=== PATIENT | female | born 1945 | race Caucasian/White ===

== ENCOUNTER 2023-02-08 06:18 | Observation (INO) | payer MEDICARE, OTHER, SELFPAY ==
[2023-02-08] VITALS (20 sets, daily range): BP systolic 126–170; BP diastolic 69–98; PULSE 71–115; RESP 14–18; TEMP 36.3–36.6; O2SAT 91–95; BMI 20.3; BMI 20.6
--- NOTE | 2023-02-08 06:34 | ECG_ITS ---
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
--- NOTE | 2023-02-08 06:34 | XR_ITS ---
The [address] [address] Patient Name: NANCY KHAN MRN: [id number] date: 1945 Sex: F Assigned Patient Location: ER Current Patient Location: ER Accession/Order Number: [id number] Exam Date: 02/08/2023 07:22 Report Date: 02/08/2023 07:35 At the request of: VIRGILIO BARRERA Procedure: XR chest 1V PROCEDURE: XR chest 1V DATE: 02/08/2023 6:22 AM CDT COMPARISONS: 05/10/2022 CLINICAL INDICATION: 78 years Female cp FINDINGS: The cardiomediastinal silhouette and pulmonary vasculature are within normal limits. The lungs appear hyperaerated. There is slight scattered increased interstitial markings likely representing chronic lung changes. There is no evidence of pleural effusion or pneumothorax. XR/XR chest 1V IMPRESSION: Findings most consistent with chronic lung changes, stable from previous exam. Electronically authenticated by: GM HOWARD Date: 02/08/2023 07:35
[2023-02-08 07:39] LABS: Basophils Absolute Auto 0.1 10^3/uL (0.0-0.1); Basophils Percent Auto 1.3 % (0.2-2.0); Eosinophils Absolute Auto 0.5 10^3/uL (0.0-0.7); Eosinophils Percent Auto 6.4 % (0.9-7.0); Hematocrit 42.9 % (36.0-48.0); Hemoglobin 14.3 g/dL (12.0-16.0); Immature Granulocytes Abs Auto 0.01 10^3/uL (0.00-0.03); Immature Granulocytes Pct Auto 0.1 % (0.0-0.5); Lymphocytes Absolute Auto 4.6 10^3/uL (1.2-3.8); Lymphocytes Percent Auto 55.8 % (20.5-60.0); Mean Corpuscular HGB Conc 33.3 g/dL (29.9-35.2); Mean Corpuscular Hemoglobin 31.1 pg (26.7-34.0); Mean Corpuscular Volume 93.3 fL (81.0-99.0); Mean Platelet Volume 11.2 fL (9.5-13.5); Monocytes Absolute Auto 1.1 10^3/uL (0.3-0.8); Monocytes Percent Auto 13.5 % (1.7-12.0); Neutrophils Absolute Auto 1.9 10^3/uL (1.4-6.5); Neutrophils Percent Auto 22.9 % (43.0-75.0); Platelet Count 355 10^3/uL (150-450); Red Cell Distribution Width 14.3 % (11.0-15.0); White Blood Count 8.2 10^3/uL (4.0-11.0)
[2023-02-08 07:59] LABS: Alanine Aminotransferase 25 U/L (14-59); Albumin Globulin Ratio 1.2; Albumin Level 3.8 g/dL (3.4-5.0); Alkaline Phosphatase 105 U/L (46-116); Anion Gap 12.8; Aspartate Amino Transferase 23 U/L (15-37); BUN Creatinine Ratio 23.3; Bilirubin Total 0.4 mg/dL (0.2-1.0); Calcium 10.4 mg/dL (8.5-10.1); Carbon Dioxide 28.9 mmol/L (21.0-32.0); Chloride 102 mmol/L (98-107); Estimated GFR (African America >60 (>=60); Estimated GFR (Non-African Ame >60 (>=60); Globulin 3.2 g/dL; Glucose 81 mg/dL (74-106); Potassium 3.7 mmol/L (3.5-5.1); Sodium 140 mmol/L (136-145); Troponin I High Sensitivity 21.7 pg/mL (4.0-51.3)
[2023-02-08 08:07] LABS: Partial Thromboplastin Time 29.9 sec (22.3-36.2); Prothrombin Time 9.8 sec (9.0-11.6)
--- NOTE | 2023-02-08 08:08 | ECG_ITS ---
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
[2023-02-08 08:28] LABS: INR <0.93
[2023-02-08 08:30] LABS: D Dimer 0.84 mg/L FEU (<=0.59)
--- NOTE | 2023-02-08 08:39 | CT_ITS ---
The [address] [address] Patient Name: NANCY KHAN MRN: [id number] date: 1945 Sex: F Assigned Patient Location: ER Current Patient Location: ER Accession/Order Number: [id number] Exam Date: 02/08/2023 08:52 Report Date: 02/08/2023 09:26 At the request of: SINAN EDWARDS Procedure: CT angio chest EXAM: CT angio chest HISTORY: PE protocol COMPARISON: 05/05/2022 TECHNIQUE: Axial CT images were obtained of the chest with intravenous contrast in the pulmonary arterial phase. Multiplanar, MIP and 3D reconstructions were performed. CHEST FINDINGS: Lungs/Pleura: Severe emphysematous disease is present. There is a stable focus of apical scarring at the right lung apex. Mild bibasilar atelectasis or scarring is present. No pleural effusion or pneumothorax. Pulmonary Arteries: No evidence of pulmonary embolus. Cardiovascular: The heart is normal in size. Moderate scattered coronary artery calcifications are present. There is severe scattered atherosclerotic disease throughout the thoracic aorta. Multifocal ectasia is present with dilation of the distal thoracic aorta measuring 3.0 cm in diameter. Pericardium: No effusion. Mediastinum: Unremarkable. Lymph Nodes: No lymph node enlargement by CT size criteria. Bones: No acute osseous abnormality. Soft tissues: Unremarkable. Upper Abdomen: Multiple cysts are present in the upper pole left kidney. CT/CT angio chest IMPRESSION: 1. No pulmonary embolus identified. 2. Severe emphysematous disease. 3. Stable right apical scarring and bibasilar atelectasis or scarring. Electronically authenticated by: JUVENTINO PRESCOTT Date: 02/08/2023 09:26
[2023-02-08 09:12] LABS: Troponin I High Sensitivity 20.1 pg/mL (4.0-51.3)
--- NOTE | 2023-02-08 10:27 | ED_ITS ---
HPI - Chest Pain General Chief Complaint: Chest Pain Stated Complaint: CHEST PAIN Time Seen by Provider: 02/08/23 06:34 Source: patient and family Mode of arrival: walk-in History of Present Illness HPI narrative: Is a 78-year-old female presenting to us with a chest pressure associated with nausea and tachycardia and according to her she felt her heart racing, the patient woke up and she did go to the bathroom when she came back to lay down and started having heart racing with the sense of nausea and discomfort in her chest and sense of chest pressure The patient mentioned that the symptoms continued there for few minutes by the t dorys she arrived to the ER if she was feeling better and she had no pain on arrival, the patient was scared when her heart was racing she denies any other complaints or having any acute issue during the night Related Data Home Medications Medication Instructions Recorded Confirmed alprazolam 1 mg tablet 1 mg PO BEDTIME 02/08/23 02/08/23 amlodipine 5 mg tablet 5 mg PO DAILY 02/08/23 02/08/23 carbidopa 25 mg-levodopa 100 mg 1 tab PO QID 02/08/23 02/08/23 tablet lisinopril 20 1 tab PO DAILY 02/08/23 02/08/23 mg-hydrochlorothiazide 25 mg tablet potassium chloride 20 mEq 20 meq PO BID 02/08/23 02/08/23 tablet,extended release(part/cryst) (Klor-Con M) pravastatin 20 mg tablet 20 mg PO DAILY 02/08/23 02/08/23 trazodone 50 mg tablet 50 mg PO BEDTIME PRN sleep 02/08/23 02/08/23 Allergies Allergy/AdvReac Type Severity Reaction Status Date / Time Sulfa (Sulfonamide Allergy Unknown Verified 02/08/23 06:34 Antibiotics) Review of Systems ROS Status of ROS 10 or more systems reviewed and unremarkable except as noted in history and below [facility] Medical History (Updated 02/08/23 @ 11:42 by Nancy Scott) Surgical History (Updated 02/08/23 @ 11:40 by Nancy Scott) Family History (Updated 02/08/23 @ 11:41 by Nancy Scott) Brother Family history of stroke Family history of hypertension Mother Family history of stroke Family history of hypertension Father Family history of cancer Social History (Updated 02/08/23 @ 11:43 by Nancy Scott) Within the past year, how often did you have a drink containing alcohol: never Within the past year, how many standard drinks containing alcohol did you have on a typical day: 1 or 2 Within the past year, how often did you have six or more drinks on one occasion: never Total score: 0 Score interpretation: A score less than 3 is consistent with normal alcohol consumption. Smoking status: Former smoker Non-prescribed substance use: denies use Previous occupational history: retired Highest level of school completed/degree received: high school graduate Are you now , , , , never or living with a partner: In a typical week, how many times do you talk on the telephone with family, friends, or neighbors: 3 or more times per week How often do you get together with friends or relatives: 3 or more times per week How often do you attend yarsani or judaism services: 4 or more times per year Do you belong to any clubs or organizations such as yarsani groups unions, fraternal or athletic groups, or school groups: no Total score: 2 Score interpretation: A score of greater than or equal to 2 indicates the lowest level of social isolation. Little interest or pleasure in doing things: not at all Feeling down, depressed, or hopeless: not at all Feel stressed/tense/nervous/anxious/difficulty sleeping: not at all Gender Identity: female Exam Narrative Exam Narrative: Nurses notes and vital signs reviewed and patient is not hypoxic. General: Well-appearing and in no apparent distress. Skin: Warm, dry, no pallor noted. No rash. Head: Normocephalic, atraumatic. Neck: Supple, non-tender. Eye: Pupils are equal, round and EOMI. No scleral icterus. Ears, Nose, Mouth, and Throat: TM are clear, no nasal mucosal hypertrophy. Oral mucosa is moist, no posterior oropharynx erythema, uvula is mid-line Cardiovascular: Regular Rate and Rhythm without murmur, gallop or rub. Respiratory: No accessory muscle use or respiratory distress. Lungs are clear to auscultation, no wheezing, rales or rhonchi Chest Wall: no tenderness Back: No midline thoracic or lumbar vertebral tenderness. No CVA tenderness Musculoskeletal: normal ROM, no calf or popliteal tenderness, no lower extremity edema/swelling GI: Abdomen is soft, non-distended. Normal bowel sounds. No masses appreciated. No tenderness to palpation. No rebound, guarding, or rigidity noted. Neurological: A&O x4. No cranial nerve dysfunction observed. No truncal ataxia. Moves all extremities. Sensation intact. Psychiatric: Cooperative and interactive. Normal mood and affect. Constitutional Vital Signs, click to edit/add: Last Vital Signs Temp 97.5 F L 02/08/23 15:50 Pulse 93 H 02/08/23 16:01 Resp 18 02/08/23 14:00 BP 144/79 H 02/08/23 15:50 Pulse Ox 94 L 02/08/23 17:01 O2 Del Method Room Air 02/08/23 17:01 Course Vital Signs Vital signs: Vital Signs Temperature 98 F 02/08/23 06:25 Pulse Rate 89 02/08/23 06:25 Respiratory Rate 16 02/08/23 06:25 Blood Pressure 170/98 H 02/08/23 06:25 Pulse Oximetry 93 L 02/08/23 06:25 Oxygen Delivery Method Room Air 02/08/23 06:25 Temperature 97.5 F L 02/08/23 15:50 Pulse Rate 93 H 02/08/23 16:01 Respiratory Rate 18 02/08/23 14:00 Blood Pressure 144/79 H 02/08/23 15:50 Pulse Oximetry 94 L 02/08/23 17:01 Oxygen Delivery Method Room Air 02/08/23 17:01 MDM - Chest Pain MDM Narrative Medical decision making narrative: The patient presenting to us with a chest pressure that presented early in the morning associated with the palpitation and sense of dizziness This feeling already resolved by the time she got to the ER and the patient EKG in the ER showed no acute significant pathology she also had a chest x-ray and a CBC and chemistry that were within normal the troponin was repeated twice and there was no trending up The patient also had elevated D-dimer her CAT scan of the chest showed no PE With the patient presentation and the fact that her blood pressure was elevated upon presentation and the fact that she recently had her metoprolol stopped according to the history and the dizziness associated with tachycardia and chest pressure that she had that I was not able to evaluate because she already had that resolved before arrival--- will be admitted for observation and I spoke with Dr. Leary he agreed with above-mentioned plan he will be admitting the patient Lab Data Labs: Lab Results 02/08/23 02/08/23 Range/Units 06:40 08:49 WBC 8.2 (4.0-11.0) 10^3/uL RBC 4.60 (4.20-5.40) 10^6/uL Hgb 14.3 (12.0-16.0) g/dL Hct 42.9 (36.0-48.0) % MCV 93.3 (81.0-99.0) fL MCH 31.1 (26.7-34.0) pg MCHC 33.3 (29.9-35.2) g/dL RDW 14.3 (11.0-15.0) % Plt Count 355 (150-450) 10^3/uL MPV 11.2 (9.5-13.5) fL Neut % (Auto) 22.9 L (43.0-75.0) % Lymph % (Auto) 55.8 (20.5-60.0) % [place] % (Auto) 13.5 H (1.7-12.0) % Eos % (Auto) 6.4 (0.9-7.0) % Baso % (Auto) 1.3 (0.2-2.0) % Neut # (Auto) 1.9 (1.4-6.5) 10^3/uL Lymph # (Auto) 4.6 H (1.2-3.8) 10^3/uL [place] # (Auto) 1.1 H (0.3-0.8) 10^3/uL Eos # (Auto) 0.5 (0.0-0.7) 10^3/uL Baso # (Auto) 0.1 (0.0-0.1) 10^3/uL Abs Immat Gran (auto) 0.01 (0.00-0.03) 10^3/uL Imm/Tot Granulo (auto) 0.1 (0.0-0.5) % PT 9.8 (9.0-11.6) sec INR <0.93 APTT 29.9 (22.3-36.2) sec D-Dimer 0.84 H* (<=0.59) mg/L FEU Sodium 140 (136-145) mmol/L Potassium 3.7 (3.5-5.1) mmol/L Chloride 102 (98-107) mmol/L Carbon Dioxide 28.9 (21.0-32.0) mmol/L Anion Gap 12.8 BUN 17.0 (7.0-18.0) mg/dL Creatinine 0.73 (0.55-1.02) mg/dL Est GFR ( Amer) >60 (>=60) Est GFR (Non-Af Amer) >60 (>=60) BUN/Creatinine Ratio 23.3 Glucose 81 (74-106) mg/dL Calcium 10.4 H (8.5-10.1) mg/dL Total Bilirubin 0.4 (0.2-1.0) mg/dL AST 23 (15-37) U/L ALT 25 (14-59) U/L Alkaline Phosphatase 105 (46-116) U/L Troponin I High Sens 21.7 20.1 (4.0-51.3) pg/mL Total Protein 7.0 (6.4-8.2) g/dL Albumin 3.8 (3.4-5.0) g/dL Globulin 3.2 g/dL Albumin/Globulin Ratio 1.2 Discharge Plan Discharge Chief Complaint: Chest Pain Clinical Impression: Heart palpitations, Chest pain Patient Disposition: Admitted as Observation Time of Disposition Decision: 10:51 Condition: Good Discharge Date/Time: 02/08/23 11:25
--- NOTE | 2023-02-08 12:12 | CA_ITS ---
Patient: NANCY KHAN Exam Date: 02/08/2023 : 1945 Gender:F Ordering : DR RODRICK SAMS . Admission #: [id number] Family : STEPHENIE PRECIADO Order #: [id number] CLICK HERE TO VIEW EXAM ECHOCARDIOGRAM REPORT PROCEDURE: CA ECHO DOPPLER COMPLETE INDICATIONS: Dyspnea, chest pain COMPARISON: None. DESCRIPTION: COMPLETE ECHOCARDIOGRAM Real-time transthoracic echocardiography with 2D, M-mode, spectral and color flow Doppler performed. QUALITY: Technical quality was good. LEFT VENTRICLE: Normal chamber size. Normal left ventricular wall thickness. Normal systolic function. LV EF: Normal left ventricular ejection fraction, (>55%). DIASTOLIC: Diastolic function is indeterminate. ATRIAL SEPTUM: LEFT ATRIUM: Moderately dilated. RIGHT ATRIUM: Normal chamber size. RIGHT VENTRICLE: Normal chamber size. Normal right ventricular systolic function. TRICUSPID VALVE: Normal mobility and thickness. No stenosis with trivial regurgitation. Doppler studies reveal mildly (35-45) elevated right sided pressures. RVSP 38 mmHg MITRAL VALVE: Normal mobility and thickness. No evidence of mitral valve stenosis. There is no mitral annular calcification. Trivial mitral regurgitation. AORTIC VALVE: Normal trileaflet appearance. No visible sclerosis. Normal leaflet mobility. No evidence of aortic valve stenosis. No aortic regurgitation. AORTIC ROOT: Normal diameter and appearance. PULMONIC VALVE: Normal thickness and mobility. No stenosis. No regurgitation. PERICARDIUM: No evidence of pericardial effusion. IVC: Collapses with inspirations. PLEURA: CONCLUSION: 1. Normal ventricular systolic function. LVEF is 55 to 60%. 2. No significant valvular dysfunction. 3. Mildly elevated right-sided pressures. Adult Echocardiography Procedure Report Left Ventricle LVEDD (3.7 - 5.6 cm): 4.71 cm LVESD (2.2 - 4.0 cm): 3.41 cm LVIVS thickness (0.6 - 1.2 cm): 0.85 cm LVPW thickness (0.5 - 1.0 cm): 0.74 cm e': 0.11 m/s E - e': 5.87 LVOT Max Gradient: 2.43 mm[Hg] LVOT Area (cm2): 0.78 m/s Peak Velocity (LVOT): 0.78 m/s LVOT Diameter 2.09 cm Left Atrium LA Volume Index (2D A2C): 26.86 ml/m2 Left Atrium Systolic Dimension: 2.38 cm Mitral Valve MV E to A Ratio: 0.90, 0.76 Mitral Valve A-Wave Peak Velocity: 0.76 m/s Mitral Valve E-Wave Peak Velocity: 0.63 m/s Right Ventricle Aorta AO Root Diam: 3.41 cm Aortic Valve AoV Area (Peak Noe): 1.81 cm2, 1.81 cm2 Peak Velocity(Antegrade Flow): 1.47 m/s Peak Gradient(Antegrade Flow): 8.60 mm[Hg] Tricuspid Valve Peak Velocity (Regurgitant Flow): 2.94 m/s, 2.97 m/s Pulmonic Valve Mean Gradient: 3.70 mm[Hg] Mean Velocity: 0.89 m/s Peak Velocity: 1.36 m/s, 0.77 m/s Peak Gradient: 7.40 mm[Hg], 2.36 mm[Hg] Right Atrium Right Atrium Systolic Pressure: 35.61 ml, 35.61 ml Dictated by: Brian Pulido M.D. on 02/08/2023 at 18:10 Approved by: Brian Pulido M.D. on 02/08/2023 at 18:13
[2023-02-08 13:07] LABS: Free T3 3.81 pg/mL (2.18-3.98); Magnesium 1.9 mg/dL (1.8-2.4); Thyroid Stimulating Hormone 0.974 uIU/mL (0.358-3.740); Troponin I High Sensitivity 20.7 pg/mL (4.0-51.3)
--- NOTE | 2023-02-08 14:05 | SWNOTE1 ---
SW met with pt and pt's daughter was in room as well. Pt lives at home with her daughter. Pt is independent at home and does not use any DME. Pt denies having any needs or concerns about discharge at this time. SW to follow as needed. SW reviewed [employer] form with pt and daughter. Pt voiced understanding, no questions. Pt signed form, original given to pt and copy placed in chart.
--- NOTE | 2023-02-08 17:21 | P.HP_ITS ---
H&P: HPI History of Present Illness Chief complaint: CHEST PAIN/PALPITATION Narrative: Presented to the emergency room with an episode of chest pain. Lasted for while at home. Uncertain the amount of time in the more than 30 minutes. [place] her heart was racing at that time as well. By the time she presented to the emergency room her chest pain had resolved. She did have a recent adjustment in her medications through cardiology. They stopped her metoprolol. She does feel little bit better off of the metoprolol but now she had this episode Review of Systems ROS Status of ROS 10 or more systems reviewed and unremarkable except as noted in history and below [facility] Medical History (Updated 02/08/23 @ 11:42 by Nancy Sctot) Surgical History (Updated 02/08/23 @ 11:40 by Nancy Scott) Family History (Updated 02/08/23 @ 11:41 by Nancy Scott) Brother Family history of stroke Family history of hypertension Mother Family history of stroke Family history of hypertension Father Family history of cancer Social History (Updated 02/08/23 @ 11:43 by Nancy Scott) Within the past year, how often did you have a drink containing alcohol: never Within the past year, how many standard drinks containing alcohol did you have on a typical day: 1 or 2 Within the past year, how often did you have six or more drinks on one occasion: never Total score: 0 Score interpretation: A score less than 3 is consistent with normal alcohol consumption. Smoking status: Former smoker Non-prescribed substance use: denies use Previous occupational history: retired Highest level of school completed/degree received: high school graduate Are you now , , , , never or living with a partner: In a typical week, how many times do you talk on the telephone with family, friends, or neighbors: 3 or more times per week How often do you get together with friends or relatives: 3 or more times per week How often do you attend evangelical or muslim services: 4 or more times per year Do you belong to any clubs or organizations such as evangelical groups unions, fraternal or athletic groups, or school groups: no Total score: 2 Score interpretation: A score of greater than or equal to 2 indicates the lowest level of social isolation. Little interest or pleasure in doing things: not at all Feeling down, depressed, or hopeless: not at all Feel stressed/tense/nervous/anxious/difficulty sleeping: not at all Gender Identity: female Meds Home Medications and Allergies Home Medications Medication Instructions Recorded Confirmed Type alprazolam 1 mg tablet 1 mg PO BEDTIME 02/08/23 02/08/23 History amlodipine 5 mg tablet 5 mg PO DAILY 02/08/23 02/08/23 History carbidopa 25 mg-levodopa 100 mg 1 tab PO QID 02/08/23 02/08/23 History tablet lisinopril 20 1 tab PO DAILY 02/08/23 02/08/23 History mg-hydrochlorothiazide 25 mg tablet potassium chloride 20 mEq 20 meq PO BID 02/08/23 02/08/23 History tablet,extended release(part/cryst) (Klor-Con M) pravastatin 20 mg tablet 20 mg PO DAILY 02/08/23 02/08/23 History trazodone 50 mg tablet 50 mg PO BEDTIME PRN sleep 02/08/23 02/08/23 History Allergies Allergy/AdvReac Type Severity Reaction Status Date / Time Sulfa (Sulfonamide Allergy Unknown Verified 02/08/23 06:34 Antibiotics) Exam Constitutional Vital Signs, click to edit/add: Last Vital Signs Temp 97.5 F L 02/08/23 15:50 Pulse 93 H 02/08/23 16:01 Resp 18 02/08/23 14:00 BP 144/79 H 02/08/23 15:50 Pulse Ox 94 L 02/08/23 17:01 O2 Del Method Room Air 02/08/23 17:01 Common normals: no apparent distress Exam limitations: altered mental status [facility] Common normals: normocephalic and head/scalp atraumatic Chest Common normals: inspection of chest normal and palpation of chest normal Respiratory Common normals: normal respiratory effort, no retractions and clear to auscultation bilaterally Auscultation: diminished lung sounds Cardio Common normals: regular rate, regular rhythm and no murmurs Results Labs Labs: Short CBC 02/08/23 Range/Units 06:40 WBC 8.2 (4.0-11.0) 10^3/uL Hgb 14.3 (12.0-16.0) g/dL Hct 42.9 (36.0-48.0) % Plt Count 355 (150-450) 10^3/uL BMP 02/08/23 06:40 Sodium 140 Potassium 3.7 Chloride 102 Carbon Dioxide 28.9 BUN 17.0 Creatinine 0.73 Glucose 81 Calcium 10.4 H Liver Function 02/08/23 Range/Units 06:40 Total Bilirubin 0.4 (0.2-1.0) mg/dL AST 23 (15-37) U/L ALT 25 (14-59) U/L Alkaline Phosphatase 105 (46-116) U/L Albumin 3.8 (3.4-5.0) g/dL Assessment and Plan Assessment and Plan (1) Heart palpitations: (2) Chest pain: (3) Hypertension: Plan Uncontrolled hypertension with chest pain significant for possible angina with her metoprolol recently being changed. The episode lasted less than 30 minutes possibly. Admitted for further evaluation. She also had palpitations at that time. She does feel better off of the metoprolol overall, not as tired. We will check echocardiogram, complete the cardiac markers. Reevaluate in a.m. COPD-but no acute exacerbation Parkinsons disease-symptoms are somewhat worse today but she did not take her medications today Uncontrolled hypertension-continue with home medications as blood pressure is better, consider adding back beta-ayo Place patient in observation-likely stable overnight and discharged home. That is much more likely than needing the extended stay
[2023-02-08] MEDS: CARBIDOPA/LEVODOPA 25 MG-100 MG TABLET 1 TAB PO (19:23)
[2023-02-08] MEDS: POTASSIUM CHLORIDE 10 MEQ ER TABLET 20 MEQ PO (21:38)
[2023-02-08] MEDS: ALPRAZOLAM 1 MG TABLET PO (21:38)
[2023-02-09 01:00] VITALS: PULSE 74
[2023-02-09 03:00] VITALS: PULSE 67
[2023-02-09 05:00] VITALS: PULSE 69
[2023-02-09 05:05] LABS: Basophils Absolute Auto 0.1 10^3/uL (0.0-0.1); Basophils Percent Auto 1.5 % (0.2-2.0); Eosinophils Absolute Auto 0.3 10^3/uL (0.0-0.7); Eosinophils Percent Auto 5.8 % (0.9-7.0); Hematocrit 40.7 % (36.0-48.0); Hemoglobin 13.5 g/dL (12.0-16.0); Immature Granulocytes Abs Auto 0.01 10^3/uL (0.00-0.03); Immature Granulocytes Pct Auto 0.2 % (0.0-0.5); Lymphocytes Absolute Auto 2.6 10^3/uL (1.2-3.8); Mean Corpuscular HGB Conc 33.2 g/dL (29.9-35.2); Mean Corpuscular Hemoglobin 31.1 pg (26.7-34.0); Mean Corpuscular Volume 93.8 fL (81.0-99.0); Mean Platelet Volume 11.2 fL (9.5-13.5); Monocytes Absolute Auto 0.9 10^3/uL (0.3-0.8); Neutrophils Absolute Auto 1.9 10^3/uL (1.4-6.5); Neutrophils Percent Auto 32.5 % (43.0-75.0); Platelet Count 314 10^3/uL (150-450); Red Blood Count 4.34 10^6/uL (4.20-5.40); Red Cell Distribution Width 14.6 % (11.0-15.0); White Blood Count 5.9 10^3/uL (4.0-11.0)
[2023-02-09] MEDS: CARBIDOPA/LEVODOPA 25 MG-100 MG TABLET 1 TAB PO (05:05)
[2023-02-09 05:51] LABS: Anion Gap 9.9; BUN Creatinine Ratio 21.8; Calcium 9.5 mg/dL (8.5-10.1); Carbon Dioxide 26.7 mmol/L (21.0-32.0); Chloride 109 mmol/L (98-107); Estimated GFR (African America >60 (>=60); Estimated GFR (Non-African Ame >60 (>=60); Glucose 81 mg/dL (74-106); Magnesium 2.1 mg/dL (1.8-2.4); Potassium 3.6 mmol/L (3.5-5.1); Sodium 142 mmol/L (136-145)
[2023-02-09 05:55] VITALS: BP 126/83; PULSE 62; RESP 18; TEMP 36.4; O2SAT 92
[2023-02-09 07:58] VITALS: PULSE 96
--- NOTE | 2023-02-09 08:06 | P.DS_ITS ---
DS: Providers Provider Date of admission: 02/08/23 11:20 Primary care physician: Kavon Leary MD DS: Diagnosis Discharge Diagnosis (1) Heart palpitations: (2) Chest pain: (3) Hypertension: Plan Uncontrolled hypertension with chest pain significant for possible angina with her metoprolol recently being changed. COPD Parkinsons disease- Uncontrolled hypertension DS: Summary Hospital Course Hospital Course: Patient with a history of angina and coronary artery disease presented to the emergency room with increasing chest pain. Patient arrived to the emergency room her chest pain had resolved. Cardiac markers were negative. Case was discussed with cardiology recommended observation. Echocardiogram was normal. Cardiac markers x3 were all negative. She has had no further symptoms since that time. At this point we will have her ambulate this morning. If she is stable and has no further chest pain her heart rate is much improved. We will discharge patient to home in improving condition. Medications see list. Follow-up with me in the office next week. Time Spent with Patient Time attestation: Total time spent providing and/or coordinating discharge services: Exam Constitutional Vital Signs, click to edit/add: Last Vital Signs Temp 97.6 F 02/09/23 05:55 Pulse 96 H 02/09/23 07:58 Resp 18 02/09/23 05:55 BP 126/83 02/09/23 05:55 Pulse Ox 92 L 02/09/23 05:55 O2 Del Method Room Air 02/09/23 05:55 Common normals: no apparent distress Exam limitations: altered mental status HENMT Common normals: normocephalic and head/scalp atraumatic Chest Common normals: inspection of chest normal and palpation of chest normal Respiratory Common normals: normal respiratory effort, no retractions and clear to auscultation bilaterally Auscultation: diminished lung sounds Cardio Common normals: regular rate, regular rhythm and no murmurs DS: Data Data Completed and Pending Labs on day of discharge: Labs from last 24 hours 02/09/23 02/08/23 02/08/23 04:15 12:32 08:49 WBC 5.9 RBC 4.34 Hgb 13.5 Hct 40.7 MCV 93.8 MCH 31.1 MCHC 33.2 RDW 14.6 Plt Count 314 MPV 11.2 Neut % (Auto) 32.5 L Lymph % (Auto) 44.0 [place] % (Auto) 16.0 H Eos % (Auto) 5.8 Baso % (Auto) 1.5 Neut # (Auto) 1.9 Lymph # (Auto) 2.6 [place] # (Auto) 0.9 H Eos # (Auto) 0.3 Baso # (Auto) 0.1 Abs Immat Gran (auto) 0.01 Imm/Tot Granulo (auto) 0.2 PT INR APTT D-Dimer Sodium 142 Potassium 3.6 Chloride 109 H Carbon Dioxide 26.7 Anion Gap 9.9 BUN 19.0 H Creatinine 0.87 Est GFR ( Amer) >60 Est GFR (Non-Af Amer) >60 BUN/Creatinine Ratio 21.8 Glucose 81 Calcium 9.5 Magnesium 2.1 1.9 Troponin I High Sens 20.7 20.1 NT-Pro-B Natriuret Pep 45.0 52.0 TSH 0.974 Thyroxine (T4) 6.60 Free T3 3.81 02/08/23 06:40 WBC RBC Hgb Hct MCV MCH MCHC RDW Plt Count MPV Neut % (Auto) Lymph % (Auto) [place] % (Auto) Eos % (Auto) Baso % (Auto) Neut # (Auto) Lymph # (Auto) [place] # (Auto) Eos # (Auto) Baso # (Auto) Abs Immat Gran (auto) Imm/Tot Granulo (auto) PT 9.8 INR <0.93 APTT 29.9 D-Dimer 0.84 H* Sodium Potassium Chloride Carbon Dioxide Anion Gap BUN Creatinine Est GFR ( Amer) Est GFR (Non-Af Amer) BUN/Creatinine Ratio Glucose Calcium Magnesium Troponin I High Sens NT-Pro-B Natriuret Pep TSH Thyroxine (T4) Free T3 Discharge Plan Discharge Disposition: Home, Self-Care Condition: Good Discharge Medications: Continued alprazolam 1 mg tablet 1.5 mg PO BEDTIME Rx Instructions: last filled 01/11/23 #45/30 days amlodipine 5 mg tablet 5 mg PO DAILY carbidopa-levodopa 25-100 mg tablet 1 tab PO QID Rx Instructions: 1 tab at 7am, 1 tab at 11am and 1 tab at 3pm per SIG on fill from 11/24/22 for 90 days lisinopril-hydrochlorothiazide 20-25 mg tablet 1 tab PO DAILY potassium chloride [Klor-Con M20] 20 mEq tablet,ER particles/crystals 20 meq PO BID pravastatin 20 mg tablet 20 mg PO DAILY trazodone 50 mg tablet 50 mg PO BEDTIME PRN (Reason: sleep) Forms: Portal Instructions
--- NOTE | 2023-02-13 10:01 | CM.DCFOLLOWU ---
Person spoke with: family member answered, and stated she is doing fine and is at another appointment right. Denies any needs.
== END 2023-02-09 08:57 | disposition home or self-care (01) ==
LOC: ER 10:51 → MS 11:22
PROVIDERS: Emergency Medicine; Admitting Provider Family Medicine; Emergency Provider Emergency Medicine; PCP Family Medicine; Visit Provider Family Medicine
DX: I10 Essential (primary) hypertension (principal); R07.9 Chest pain, unspecified; R00.2 Palpitations; J44.9 Chronic obstructive pulmonary disease, unspecified; G20 Parkinson's disease; I25.10 Atherosclerotic heart disease of native coronary artery without angina pectoris; Z87.891 Personal history of nicotine dependence; Z79.899 Other long term (current) drug therapy; R06.00 Dyspnea, unspecified
CPT/HCPCS: 36415; 71045; 71275; 80048; 80053; 81001; 83735; 83880; 84436; 84443; 84481; 84484; 85025; 85378; 85610; 85730; 93005; 93306; 94667; 94668; 94761; 99285; G0378; Q9967

== ENCOUNTER 2023-05-25 07:03 | Outpatient (OUT) | payer MEDICARE, OTHER, SELFPAY ==
[2023-05-25 08:17] LABS: Chol HDL Ratio 2.2; Cholesterol 194 mg/dL (<=200); HDL Cholesterol 89 mg/dL (40-60); Triglycerides 74 mg/dL (<=150); VLDL CHOLESTEROL 14.8 mg/dL
== END 2023-05-25 07:04 | disposition home or self-care (01) ==
LOC: LAB 07:05
PROVIDERS: PCP Family Medicine; Visit Provider Nurse Practitioner Family
DX: Z86.73 Personal history of transient ischemic attack (TIA), and cerebral infarction without residual deficits (principal)
CPT/HCPCS: 36415; 80061

== ENCOUNTER 2023-06-01 12:52 | Outpatient (OUT) | payer MEDICARE, OTHER, SELFPAY ==
--- OUTSIDE RECORDS SUMMARY | 2023-06-01 13:00 | XMS_ITS | CCD ---
Author Name Unknown Address [address] [place] [address] Organization [facility] Care Team Providers Care Pipe Line Gauger Name Role Phone SELF, REFERRED Unavailable Unavailable SELF, REFERRED Unavailable Unavailable BRAMOS, ATHANASIOS Unavailable Unavailable SUPA MAY Unavailable Unavailable TN Unavailable Unavailable BRAMOS, ATHANASIOS Unavailable Unavailable TN Unavailable Unavailable SUPA MAY Unavailable Unavailable PHYSICIAN, DEFAULT Unavailable Unavailable PHYSICIAN, DEFAULT Unavailable Unavailable SELF, REFERRED Unavailable Unavailable PHYSICIAN, DEFAULT Unavailable Unavailable PHYSICIAN, DEFAULT Unavailable Unavailable PAY ., DR DOUGLAS Admitting Unavailable ZIEBER, DR RAMIRO Gates Consulting Unavailable HOY ., DR MENSAH Primary Care Unavailable PAY ., DR DOUGLAS Attending Unavailable PAY ., DR DOUGLAS Consulting Unavailable HOY ., DR MENSAH Admitting Unavailable HOY ., DR MENSAH Attending Unavailable HOY ., DR MENSAH Consulting Unavailable HOY ., DR MENSAH Primary Care Unavailable ZIEBER, DR RAMIRO Gates Consulting Unavailable ALBA TROTTER Consulting Unavailable LANDY SHERMAN Consulting Unavailable YULISSA TALBERT Consulting Unavailable SUPA LOZANO Unavailable SHAIKH Zoltan TOM Consulting Unavailable SUPA DEAN Consulting Unavailable FLAQUITA ., DR MENSAH Primary Care Unavailable ZIEBER, DR RAMIRO Gates Consulting Unavailable ALICIA CHRISTOPHER Attending Unavailable ALICIA, CHRISTOPHER Admitting Unavailable BALJEET VARGAS Consulting Unavailable HOY ., DR MENSAH Admitting Unavailable HOY ., DR MENSAH Attending Unavailable HOY ., DR MENSAH Consulting Unavailable HOY ., DR MENSAH Primary Care Unavailable HOY ., DR MENSAH Admitting Unavailable HOY ., DR MENSAH Attending Unavailable HOY ., DR MENSAH Consulting Unavailable FLAQUITA ., DR MENSAH Primary Care Unavailable ZIEBER, DR RAMIRO Gates Consulting Unavailable COOPER ROWLEY Attending Unavailable STEPHENIE LUKE Attending Unavailable STEPHENIE LUKE Attending Unavailable MD Rodrick Leary Primary Care Provider [phone] DIXIE Reid Attending Provider [phone] Cathie Reid Attending Unavailable Cathie Reid Admitting Unavailable Rodrick Leary Primary Care Unavailable Allergies Allergy Classification Reported Allergen(s) Allergy Type Date of Onset Reaction(s) Facility (4 sources) Sulfonamides (Antibiotic); 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: [SULFA (SULFONAMIDE ANTIBIOTICS)] Drug allergy (disorder) 06-30-2013 [facility] Repository (1 source) Cephalexin Drug Allergy 09-30-2021 [facility] Repository (1 source) Unable to Assess Drug allergy (disorder) 05-15-2023 [facility] Repository Problems Active Problems Problem Classification Problem Date Documented Da te Episodic/Chronic Anxiety disorders (1 source) Anxiety disorder, unspecified; 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: [ANXIETY DISORDER, UNSPECIFIED] Onset: 08-11-2017 Chronic Chronic obstructive pulmonary disease and bronchiectasis (6 sources) Chronic obstructive pulmonary disease, unspecified; 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: [Chronic obstructive pulmonary disease with (acute) exacerbation] Onset: 08-11-2017 Chronic Congestive heart failure; nonhypertensive (4 sources) Unspecified diastolic (congestive) heart failure; 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: [Acute systolic (congestive) heart failure] Onset: 05-22-2022 Chronic Deficiency and other anemia (1 source) Anemia, unspecified; 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: [ANEMIA UNSPECIFIED] Onset: 10-12-2022 Episodic Diabetes mellitus without complication (1 source) Type 2 diabetes mellitus without complications; 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: [TYPE 2 DIABETES MELLITUS WITHOUT COMPLICATIONS] Onset: 08-11-2017 Chronic Disorders of lipid metabolism (6 sources) Hyperlipidemia, unspecified; 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: [Pure hypercholesterolemia , unspecified] Onset: 08-11-2017 Chronic Essential hypertension (6 sources) Essential (primary) hypertension; 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: [Hypertensive disorder] Onset: 08-11-2017 Chronic External Injury - Fall (1 source) Unspecified fall, initial encounter; 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: [UNSPECIFIED FALL, INITIAL ENCOUNTER] Onset: 08-11-2017 Hypertension with complications and secondary hypertension (3 sources) Hypertensive heart disease with heart failure; 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: [Hypertensive heart disease without heart failure] Onset: 07-19-2022 Chronic Nutritional deficiencies (3 sources) Unspecified protein-calorie malnutrition; 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: [Vitamin D deficiency, unspecified] Onset: 08-11-2017 Chronic Other hereditary and degenerative nervous system conditions (1 source) Dystonia, unspecified; 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: [Dystonia, unspecified] Onset: 05-15-2023 Chronic Other nutritional; endocrine; and metabolic disorders (2 sources) Hypocalcemia; 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: [Other disorders of phosphorus metabolism] Onset: 08-11-2017 Chronic Parkinson's disease (2 sources) Parkinson's disease; 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: [PARKINSON'S DISEASE] Onset: 08-11-2017 Chronic Residual codes; unclassified (1 source) Insomnia, unspecified; 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: [INSOMNIA UNSPECIFIED] Onset: 10-12-2022 Episodic Respiratory failure; insufficiency; arrest (adult) (1 source) Dependence on supplemental oxygen; 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: [DEPENDENCE ON SUPPLEMENTAL OXYGEN] Onset: 05-22-2022 Chronic Spondylosis; intervertebral disc disorders; other back problems (1 source) Other intervertebral disc degeneration, lumbar region; 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: [OTH IV DISC DEGEN LUMBAR REGION] Onset: 03-31-2022 Chronic Substance-related disorders (1 source) Nicotine dependence, cigarettes, with other nicotine-induced disorders; 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: [NICOTINE DEPENDENCE, CIGARETTES, W OTH DISORDERS] Onset: 08-11-2017 Chronic 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) 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; 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: [FCI (CURRENT) USE OF ORAL HYPOGLYCEMIC DRUGS] Onset: 08-11-2017 Unclassified (2 sources) Unknown / UNK(Unknown) Onset: 08-11-2017 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) PERSONAL HISTORY OF COVID-19; 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: [PERSONAL HISTORY OF COVID-19] Onset: 05-22-2022 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) UNVACCINATED FOR COVID-19; 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: [UNVACCINATED FOR COVID-19] Onset: 05-22-2022 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) CONTACT W/AND (SUSP) EXPOS COVID-19; 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: [CONTACT W/AND (SUSP) EXPOS COVID-19] Onset: 05-22-2022 Unclassified (2 sources) abnormal stress test Onset: 05-31-2022 Past or Other Problems Problem Classification Problem Date Documented Date Episodic/Chronic Abdominal pain (4 sources) Unspecified abdominal pain; 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: [UNSPECIFIED ABDOMINAL PAIN] Onset: 03-29-2022 Episodic Acute bronchitis (1 source) Acute bronchitis, unspecified; 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: [ACUTE BRONCHITIS UNSPECIFIED] Onset: 05-22-2022 Episodic Acute posthemorrhagic anemia (1 source) Acute posthemorrhagic anemia; 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: [ACUTE POSTHEMORRHAGIC ANEMIA] Onset: 08-11-2017 Episodic Crushing injury or internal injury (3 sources) Unspecified injury of spleen, initial encounter; 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: [Major laceration of spleen, initial encounter] Onset: 08-11-2017 Episodic Fluid and electrolyte disorders (2 sources) Hypokalemia; 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: [HYPOKALEMIA] Onset: 08-11-2017 Episodic Genitourinary symptoms and ill-defined conditions (1 source) Personal history of urinary (tract) infections; 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: [PERS HX URINARY TRACT INFECTIONS] Onset: 05-22-2022 Episodic Immunizations and screening for infectious disease (1 source) Encounter for immunization; 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: [ENCOUNTER FOR IMMUNIZATION] Onset: 08-11-2017 Episodic Intestinal obstruction without hernia (1 source) Ileus, unspecified; 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: [ILEUS, UNSPECIFIED] Onset: 08-11-2017 Episodic Malaise and fatigue (1 source) Weakness; 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: [WEAKNESS] Onset: 05-22-2022 Episodic Nausea and vomiting (1 source) Nausea; 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: [NAUSEA] Onset: 03-31-2022 Episodic Nonspecific chest pain (4 sources) Chest pain, unspecified; 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: [CHEST PAIN UNSPECIFIED] Onset: 05-24-2022 Episodic Other aftercare (2 sources) 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; 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: [INSTITUTIONAL CUSTODIAN (CURRENT) USE OF ASPIRIN] Onset: 08-11-2017 Episodic Other aftercare (1 source) Other block cuber (current) drug therapy; 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: [OTH INSTITUTIONAL CUSTODIAN CURRENT DRUG THERAPY] Onset: 05-22-2022 Episodic Other hematologic conditions (1 source) Other specified abnormalities of plasma proteins; 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: [OTH SPEC ABNORM PLASMA PROTEINS] Onset: 05-22-2022 Episodic Other lower respiratory disease (1 source) Acute pulmonary edema; 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: [ACUTE PULMONARY EDEMA] Onset: 08-11-2017 Episodic Other lower respiratory disease (1 source) Personal history of pneumonia (recurrent); 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: [PERSONAL HX OF PNEUMONIA RECURRENT] Onset: 05-22-2022 Episodic Other nervous system disorders (4 sources) Ataxia, unspecified; 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: [ATAXIA UNSPECIFIED] Onset: 12-27-2021 Episodic Other nutritional; endocrine; and metabolic disorders (1 source) Body mass index (BMI) 19.9 or less, adult; 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: [BODY MASS INDEX 19.9 OR LESS ADULT] Onset: 05-22-2022 Episodic Residual codes; unclassified (1 source) Acquired absence of both cervix and uterus; 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: [ACQUIRED ABSENCE BOTH CERVIX AND UTERUS] Onset: 05-22-2022 Episodic Residual codes; unclassified (1 source) Acquired absence of spleen; 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: [ACQUIRED ABSENCE OF SPLEEN] Onset: 05-22-2022 Episodic Respiratory failure; insufficiency; arrest (adult) (1 source) Acute respiratory failure with hypoxia; 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: [ACUTE RESPIRATORY FAIL W/HYPOXIA] Onset: 05-22-2022 Episodic Screening and history of mental health and substance abuse codes (1 source) Personal history of nicotine dependence; 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: [PERSONAL HISTORY OF NICOTINE DEPEND] Onset: 03-31-2022 Episodic Septicemia (except in labor) (4 sources) Sepsis, unspecified organism; 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: [Severe sepsis without septic shock] Onset: 05-08-2022 Episodic 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) Body mass index (BMI) 20.0-20.9, adult; 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: [BODY MASS INDEX (BMI) 20.0-20.9, ADULT] Onset: 08-11-2017 Episodic Urinary tract infections (1 source) Urinary tract infection, site not specified; 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: [UTI SITE NOT SPECIFIED] Onset: 03-31-2022 Episodic Results Test Name Value Interpretation Reference Range Facility Creatinine (Bld) [Mass/Vol]O rdered By: Cathie Reid on 05-15-2023 Creatinine [Mass/Vol] 1.0 mg/dL 0.6-1.3 [facility] Comment on above: ER/ESD physician is notified/shown all ISTAT results.Critical values may be confirmed by laboratory testing ifdeemed necessary by ER attending doctor. ISMARILOU OCHOAon 05-15-2023 Creatinine [Mass/Vol] 1.0 mg/dL Normal 0.6-1.3 [facility] Comment on above: Result Comment: ER/E SD physician is notified/shown all ISTAT results. Critical values may be confirmed by laboratory testing if deemed necessary by ER attending doctor. Performed By: #### I SCRE #### [facility] [address] [place] [address] ISTAT GFR 58[address] [facility] Comment on above: Result Comment: PERF ORMED BY: [address] [place] [address] PATHOLOGIST CLOTH SHRINKING TESTER MARISOL AGUSTIN M.D. Performed By: #### I SCRE #### [address] MR head/brain wo/w conon MR head/brain wo/w con [facility] [place] [address] [place] [address] MRI Report Signed Patient: Judith Land MR#: [id number] 320 : 1945 Acct:[id number] Age/Sex: 78 / F ADM Date: 05/15/23 Loc: MR Room: Type: [facility] Attending Dr: Cathie COLIN Copies to: DIXIE Eng Ordering Provider: DIXIE Eng Date of Service: 05/15/23 MR/MR head/brain wo/w con: G24.9, R27.0 MR head/brain wo/w con 05/15/2023 2:32 PM SIGN AND SYMPTOMS: Tremors in right extremities PROTOCOL: Multiplanar multisequence MR images of the brain were obtained with and without IV contrast CONTRAST: 12 mL of intravenous ProHance COMPARISON: 12/27/2021 FINDINGS: Extra axial spaces: There is mild diffuse age-related cortical atrophy. Hemorrhage: None. Ventricular system: Within normal limits. Basal cisterns: Within normal limits and not effaced. Cerebral parenchyma: T2 and FLAIR hyperintense foci are noted in the periventricular and subcortical white matter. No abnormal postcontrast enhancement. There is a remote lacunar infarct in the putamen bilaterally. Midline shift: None.. 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 Brainstem: T2 and FLAIR hyperintense foci are noted in the pontine white matter. OTHER: Calvarium: Normal marrow signal. Vascular system: Satisfactory flow voids within the anterior and posterior circulation. Visualized Paranasal sinuses: Within normal limits. Visualized Orbits: Within normal limits. Visualized upper cervical spine: Within normal limits. Sella and skull base: Within normal limits. MR/MR head/brain wo/w con IMPRESSION: No acute intracranial pathology or abnormal postcontrast enhancement. Chronic age-related neurodegenerative changes are redemonstrated, as above. 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 Remote lacunar infarcts are noted in the putamen bilaterally. Impression dictated by: Adeel Meyer M.D.05/15/2023 5:24 PM Dictation Location: [place] [address] Transcribed By: JOSELO 05/15/231723 Dictated By: Adeel Meyer II, MD 05/15/231718 Signed By: 05/15/231723 [facility] No Panel InformationOrdered By: Cathie Reid on 05-15-2023 Bedside Estimated GFR (eGFR) 58.023 [facility] 37on 01-12-2023 37 Hold metoprolol and see if fatigue levels improve Continue all other medications Monitor blood pressure 1-2 times a day and if it increases greater than 130/80 please call the office for medication adjustment, or for tachycardia/palpitations Normal [facility] Office Visiton 01-12-2023 Follow-up visit [id number] Donato Land 1945 F Date Provider Department Center 01/12/2023 COOPER SORIA [facility] Family History Problem Relation Age of Onset Stroke Mother Stroke Brother Other Mother's Sister Coronary artery disease Mother's Sister Stroke Maternal Grandmother Family Status - Relation Status Age at Mother Brother Mother's Sister Maternal Grandmother Level of Service:[address] [place] OFFICE/OUTPATIENT ESTABLISHED LOW MDM 20-29 MIN Normal [facility] BNPon 10-09-2022 Natriuretic peptide B (Bld) [Mass/Vol] 90.0 pg/mL Normal <=1,800.0 [facility] Comment on above: Performed By: #### M G, CMP, TSH, T7, BNP #### [facility] [address] [place] [address] Dr. Glenys Holly CBC AUTO DIFFon 10-09-2022 BASO # 0.1 103/ul Normal 0.0-0.1 [facility] Comment on above: Performed By: #### M G, CMP, TSH, T7, BNP #### [facility] [address] [place] [address] Dr. Glenys Holly Basophils/100 WBC (Bld) 1.0 % Normal 0.2-2.0 [facility] Comment on above: Performed By: #### M G, CMP, TSH, T7, BNP #### [facility] [address] [place] [address] Dr. Glenys Holly EO # 0.5 103/ul Normal 0.0-0.7 [facility] Comment on above: Performed By: #### M G, CMP, TSH, T7, BNP #### [facility] [address] [place] [address] Dr. Glenys Holly Eosinophils/100 WBC (Bld) 6.4 % Normal 0.9-7.0 [facility] Comment on above: Performed By: #### M G, CMP, TSH, T7, BNP #### [facility] [address] [place] [address] Dr. Glenys Holly Erythrocyte distribution width (RBC) [Ratio] 15.4 % Critically high 11.0-15.0 [facility] Comment on above: Performed By: #### M G, CMP, TSH, T7, BNP #### [facility] [address] [place] [address] Dr. Glenys Holly Hematocrit (Bld) [Volume fraction] 42.8 % Normal 36.0-48.0 [facility] Comment on above: Performed By: #### M G, CMP, TSH, T7, BNP #### [facility] [address] [place] [address] Dr. Glenys Holly Hemoglobin (Bld) [Mass/Vol] 14.1 g/dL Normal 12.0-16.0 [facility] Comment on above: Performed By: #### M G, CMP, TSH, T7, BNP #### [facility] [address] [place] [address] Dr. Glenys Holly IG # 0.01 10e3/ul Normal 0.00-0.03 [facility] Comment on above: Performed By: #### M G, CMP, TSH, T7, BNP #### [facility] [address] [place] [address] Dr. Glenys Holly IG % 0.1 % Normal 0.0-0.5 [facility] Comment on above: Performed By: #### M G, CMP, TSH, T7, BNP #### [facility] [address] [place] [address] Dr. Glenys Holly LYMPH # 3.3 103/ul Normal 1.2-3.8 [facility] Comment on above: Performed By: #### M G, CMP, TSH, T7, BNP #### [facility] [address] [place] [address] Dr. Glenys Holly Lymphocytes/100 WBC (Bld) 44.2 % Normal 20.5-60.0 [facility] Comment on above: Performed By: #### M G, CMP, TSH, T7, BNP #### [facility] [address] [place] [address] Dr. Glenys Holly MANUAL DIFF REQ NO Normal [facility] Comment on above: Performed By: #### M G, CMP, TSH, T7, BNP #### [facility] [address] [place] [address] Dr. Glenys Holly MCH (RBC) [Entitic mass] 30.3 pg Normal 26.7-34.0 [facility] Comment on above: Performed By: #### M G, CMP, TSH, T7, BNP #### [facility] [address] [place] [address] Dr. Glenys Holly MCHC (RBC) [Mass/Vol] 32.9 g/dL Normal 29.9-35.2 [facility] Comment on above: Performed By: #### M G, CMP, TSH, T7, BNP #### [facility] [address] [place] [address] Dr. Glenys Holly MCV (RBC) [Entitic vol] 92.0 fL Normal 81.0-99.0 [facility] Comment on above: Performed By: #### M G, CMP, TSH, T7, BNP #### [facility] [address] [place] [address] Dr. Glenys Holly MONO # 1.2 103/ul Critically high 0.3-0.8 [facility] Comment on above: Performed By: #### M G, CMP, TSH, T7, BNP #### [facility] [address] [place] [address] Dr. Glenys Holly Monocytes/100 WBC (Bld) 16.4 % Critically high 1.7-12.0 [facility] Comment on above: Performed By: #### M G, CMP, TSH, T7, BNP #### [facility] [address] [place] [address] Dr. Glenys Holly NEUT # 2.4 103/ul Normal 1.4-6.5 [facility] Comment on above: Performed By: #### M G, CMP, TSH, T7, BNP #### [facility] [address] [place] [address] Dr. Glenys Hloly Neutrophils/100 WBC (Bld) 31.9 % Critically low 43.0-75.0 [facility] Comment on above: Performed By: #### M G, CMP, TSH, T7, BNP #### [facility] [address] [place] [address] Dr. Glenys Holly Platelet mean volume (Bld) [Entitic vol] 10.3 fL Normal 9.5-13.5 [facility] Comment on above: Performed By: #### M G, CMP, TSH, T7, BNP #### [facility] [address] [place] [address] Dr. Glenys Holly PLT 379 103/ul Normal 150-450 [facility] Comment on above: Performed By: #### M G, CMP, TSH, T7, BNP #### [facility] [address] [place] [address] Dr. Glenys Holly RBC 4.65 106/ul Normal 4.20-5.40 [facility] Comment on above: Performed By: #### M G, CMP, TSH, T7, BNP #### [facility] [address] [place] [address] [address] Glenys Holly WBC 7.4 103/ul Normal 4.0-11.0 [facility] Comment on above: Performed By: #### M G, CMP, TSH, T7, BNP #### [facility] [address] [place] [address] [address] Glenys Holly FERRITINon 10-09-2022 Ferritin [Mass/Vol] 68.0 ng/mL Normal 8.0-252.0 [facility] Comment on above: Performed By: #### F ERR, IRON, VITAD ####[facility] [id number] [place] [address]Dr. Glenys Holly FREE THYROXINE INDEX T7on FTI 3.10 Normal 1.30-4.50 [facility] Comment on above: Performed By: #### M G, CMP, TSH, T7, BNP #### [facility] [address] [place] [address] [address] Glenys Holly T3U 36.0 % Normal 30.0-39.0 [facility] Comment on above: Performed By: #### M G, CMP, TSH, T7, BNP #### [facility] [address] [place] [address] [address] Glenys Holly T4 [Mass/Vol] 8.60 ug/dL Normal 4.80-13.90 [facility] Comment on above: Performed By: #### M G, CMP, TSH, T7, BNP #### [facility] [address] [place] [address] [address] Glenys Holly IRONon 10-09-2022 Iron [Mass/Vol] 52.0 ug/dL Normal 50.0-170.0 [facility] Comment on above: Performed By: #### F ERR, IRON, VITAD ####[facility] [id number] [place] [address]Dr. Glenys Holly MAGNESIUMon 10-09-2022 Magnesium [Mass/Vol] 2.0 mg/dL Normal 1.8-2.4 [facility] Comment on above: Performed By: #### M G, CMP, TSH, T7, BNP #### [facility] [address] [place] [address] [address] Glenys Holly PROF 14(COMP METB)on 023 Albumin [Mass/Vol] 3.5 g/dL Normal 3.4-5.0 [facility] Comment on above: Performed By: #### M G, CMP, TSH, T7, BNP #### [facility] [address] [place] [address] Dr. Glenys Holly Albumin/Globulin [Mass ratio] 1.0 {ratio} Normal [facility] Comment on above: Performed By: #### M G, CMP, TSH, T7, BNP #### [facility] [address] [place] [address] Dr. Glenys Holly ALP [Catalytic activity/Vol] 134 U/L Critically high 46-116 [facility] Comment on above: Performed By: #### M G, CMP, TSH, T7, BNP #### [facility] [address] [place] [address] Dr. Glenys Holly ALT [Catalytic activity/Vol] 34 U/L Normal 14-59 [facility] Comment on above: Performed By: #### M G, CMP, TSH, T7, BNP #### [facility] [address] [place] [address] Dr. Glenys Holly Anion gap [Moles/Vol] 8.8 mmol/L Normal [facility] Comment on above: Performed By: #### M G, CMP, TSH, T7, BNP #### [facility] [address] [place] [address] Dr. Glenys Holly AST [Catalytic activity/Vol] 19 U/L Normal 15-37 [facility] Comment on above: Performed By: #### M G, CMP, TSH, T7, BNP #### [facility] [address] [place] [address] Dr. Glenys Holly Bilirubin [Mass/Vol] 0.2 mg/dL Normal 0.2-1.0 [facility] Comment on above: Performed By: #### M G, CMP, TSH, T7, BNP #### [facility] [address] [place] [address] Dr. Glenys Holly Calcium [Mass/Vol] 10.6 mg/dL Critically high 8.5-10.1 [facility] Comment on above: Performed By: #### M G, CMP, TSH, T7, BNP #### [facility] [address] [place] [address] Dr. Glenys Holly Chloride [Moles/Vol] 105 mmol/L Normal 98-107 [facility] Comment on above: Performed By: #### M G, CMP, TSH, T7, BNP #### [facility] [address] [place] [address] Dr. Glenys Holly CO2 [Moles/Vol] 30.0 mmol/L Normal 21.0-32.0 [facility] Comment on above: Performed By: #### M G, CMP, TSH, T7, BNP #### [facility] [address] [place] [address] Dr. Glenys Holly Creatinine [Mass/Vol] 0.86 mg/dL Normal 0.55-1.02 [facility] Comment on above: Performed By: #### M G, CMP, TSH, T7, BNP #### [facility] [address] [place] [address] Dr. Glenys Holly EGFR-AF HONDURAN >60 Normal >=60 [facility] Comment on above: Performed By: #### M G, CMP, TSH, T7, BNP #### [facility] [address] [place] [address] Dr. Glenys Holly EGFR-NON AF HONDURAN >60 Normal >=60 [facility] Comment on above: Performed By: #### M G, CMP, TSH, T7, BNP #### [facility] [address] [place] [address] Dr. Glenys Holly Globulin (S) [Mass/Vol] 3.5 g/dL Normal [facility] Comment on above: Performed By: #### M G, CMP, TSH, T7, BNP #### [facility] [address] [place] [address] Dr. Glenys Holly Glucose [Mass/Vol] 99 mg/dL Normal 74-106 [facility] Comment on above: Performed By: #### M G, CMP, TSH, T7, BNP #### [facility] [facility] [address] [place] [address] Dr. Glenys Holly Potassium [Moles/Vol] 3.8 mmol/L Normal 3.5-5.1 [facility] Comment on above: Performed By: #### M G, CMP, TSH, T7, BNP #### [facility] [address] [place] [address] Dr. Glenys Holly Protein [Mass/Vol] 7.0 g/dL Normal 6.4-8.2 The [facility] Comment on above: Performed By: #### M G, CMP, TSH, T7, BNP #### [facility] [address] [place] [address] Dr. Glenys Holly Sodium [Moles/Vol] 140 mmol/L Normal 136-145 The [facility] Comment on above: Performed By: #### M G, CMP, TSH, T7, BNP #### [facility] [address] [place] [address] Dr. Glenys Holly Urea nitrogen [Mass/Vol] 25.0 mg/dL Critically high 7.0-18.0 [facility] Comment on above: Performed By: #### M G, CMP, TSH, T7, BNP #### [facility] [address] [place] [address] Dr. Glenys Holly Urea nitrogen/Creatinine [Mass ratio] 29.1 mg/mg Normal [facility] Comment on above: Performed By: #### M G, CMP, TSH, T7, BNP #### [facility] [address] [address] [address] Glenys Holly TSHon 10-09-2022 TSH 1.720 uIU/mL Normal 0.358-3.740 [facility] Comment on above: Performed By: #### M G, CMP, TSH, T7, BNP #### [facility] [address] [place] [address] Dr. Glenys Holly VITAMIN D 25 OHon 10-09-2022 VIT D 25-OH 89.3 ng/mL Normal [facility] Comment on above: Performed By: #### F ERR, IRON, VITAD ####[facility] [address] [place], [place] [address]EsRatna Holly VIT D RANGES SEE BELOW Normal [facility] Comment on above: Result Comment: <20 ng/mL Vit D deficient 20 - <30 ng/mL Vit D insufficient 30 - 100 ng/mL Vit D sufficient >100 ng/mL Potential Toxicity Performed By: #### F ERR, IRON, VITAD ####[facility] [address] [place], [place] [address]UkRatna Holly Office Visiton 07-19-2022 Follow-up visit [id number] Donato Land en A 1945 Date Provider Department Center 07/19/2022 STEPHENIE CONTRERAS Family History Problem Relation Age of Onset Stroke Mother Stroke Brother Other Mother's Sister Coronary artery disease Mother's Sister Stroke Maternal Grandmother Family Status - Relation Status Age at Mother Brother Mother's Sister Maternal Grandmother Level of Service:07311 [place] OFFICE/OUTPATIENT ESTABLISHED LOW MDM 20-29 MIN Reason for Visit and Comments: Hyperlipidemia [182] Hypertension [792235] Normal [facility] Office Visiton 05-31-2022 Follow-up visit [id number] Donato Land en A 1945 Date Provider Department Center 05/31/2022 STEPHENIE CONTRERAS Family History Problem Relation Age of Onset Stroke Mother Stroke Brother Other Mother's Sister Coronary artery disease Mother's Sister Stroke Maternal Grandmother Family Status - Relation Status Age at Mother Brother Mother's Sister Maternal Grandmother Level of Service:74424 [place] OFFICE/OUTPATIENT NEW MODERATE MDM 45-59 MINUTES Reason for Visit and Comments: Congestive Heart Failure [127] abnormal stress test [Other] Hyperlipidemia [182] Hypertension [333636] Normal [facility] NM STRESS/REST MULTIon 05-24 NM STRESS/REST MULTI Patient: Shana LAND Exam Date: 05/24/2022 : 1945 Gender:F Ordering : DR RODRICK LEARY . Admission #: [id number] Family : Order #: [id number] CLICK HERE TO VIEW EXAM RADIOLOGY REPORT PROCEDURE: RADIONUCLIDE IMAGING STRESS/REST MULTI COMPARISON: None. INDICATIONS: Chest pain TECHNIQUE: Exam Description: Stress/Rest one day protocol gated SPECT Rest Imagin.6 mCi Tc-99m Cardiolite IV on 05/24/2022 Stress Imaging 31.0 mCi Tc-99m Cardiolite IV on 05/24/2022 Exercise Protocol: 0.4 mg Lexiscan given IV Heart Rate (bpm): Rest: 71 Max: 110 PMHR: 76 Blood Pressure: Rest: 204/116 Max: 208/117 Symptoms: chest pressure Rest and peak stress ECG findings were abnormal and the exercise portion of the study was abnormal per attending physician Dr. Farley due to blood pressure and EKG changes. For more details please see separate cardiac stress test report. FINDINGS: QUALITY OF STUDY: Excellent. PERFUSION DEFECT: None. LOCATION: N/A SIZE: N/A. SEVERITY: N/A. TYPE: N/A. WALL MOTION: Normal. LV SIZE: Normal. 80 mL. TID / TCD: None; 0.9 LVEF: Normal. Calculated EF 60%. SUMMARY: Myocardial perfusion imaging study is NORMAL. CONCLUSION: 1. Normal nuclear medicine myocardial perfusion scan. Dictated by: Ramiro Evans M.D. on 05/24/2022 at 16:00 Approved by: Ramiro Evans M.D. on 05/24/2022 at 16:02 Normal [facility] BNPon 05-10-2022 Natriuretic peptide B (Bld) [Mass/Vol] 1305.0 pg/mL Normal <=1,800.0 [facility] Comment on above: Performed By: #### M G, CMP, TSH, T7, BNP #### [facility] [address] [place] [address] Dr. Glenys Holly CBC AUTO DIFFon 05-10-2022 BASO # 0.0 103/ul Normal 0.0-0.1 [facility] Comment on above: Performed By: #### M G, CMP, TSH, T7, BNP #### [facility] [address] [place] [address] Dr. Glenys Holly Basophils/100 WBC (Bld) 0.3 % Normal 0.2-2.0 [facility] Comment on above: Performed By: #### M G, CMP, TSH, T7, BNP #### [facility] [address] [place] [address] Dr. Glenys Holly EO # 0.0 103/ul Normal 0.0-0.7 [facility] Comment on above: Performed By: #### M G, CMP, TSH, T7, BNP #### [facility] [address] [place] [address] Dr. Glenys Holly Eosinophils/100 WBC (Bld) 0.1 % Critically low 0.9-7.0 [facility] Comment on above: Performed By: #### M G, CMP, TSH, T7, BNP #### [facility] [address] [place] [address] Dr. Glenys Holly Erythrocyte distribution width (RBC) [Ratio] 15.1 % Critically high 11.0-15.0 [facility] Comment on above: Performed By: #### M G, CMP, TSH, T7, BNP #### [facility] [address] [place] [address] Dr. Glenys Holly Hematocrit (Bld) [Volume fraction] 42.9 % Normal 36.0-48.0 [facility] Comment on above: Performed By: #### M G, CMP, TSH, T7, BNP #### [facility] [address] [place] [address] Dr. Glenys Holly Hemoglobin (Bld) [Mass/Vol] 14.6 g/dL Normal 12.0-16.0 [facility] Comment on above: Performed By: #### M G, CMP, TSH, T7, BNP #### [facility] [address] [place] [address] Dr. Glenys Holly IG # 0.05 10e3/ul Critically high 0.00-0.03 [facility] Comment on above: Performed By: #### M G, CMP, TSH, T7, BNP #### [facility] [address] [place] [address] Dr. Glenys Holly IG % 0.7 % Critically high 0.0-0.5 The [facility] Comment on above: Performed By: #### M G, CMP, TSH, T7, BNP #### [facility] [address] [place] [address] Dr. Glenys Holly LYMPH # 1.6 103/ul Normal 1.2-3.8 [facility] Comment on above: Performed By: #### M G, CMP, TSH, T7, BNP #### [facility] [address] [place] [address] Dr. Glenys Holly Lymphocytes/100 WBC (Bld) 20.4 % Critically low 20.5-60.0 [facility] Comment on above: Performed By: #### M G, CMP, TSH, T7, BNP #### [facility] [address] [place] [address] Dr. Glenys Holly MANUAL DIFF REQ NO Normal [facility] Comment on above: Performed By: #### M G, CMP, TSH, T7, BNP #### [facility] [address] [place] [address] Dr. Glenys Holly MCH (RBC) [Entitic mass] 29.9 pg Normal 26.7-34.0 [facility] Comment on above: Performed By: #### M G, CMP, TSH, T7, BNP #### [facility] [address] [place] [address] Dr. Glenys Holly MCHC (RBC) [Mass/Vol] 34.0 g/dL Normal 29.9-35.2 [facility] Comment on above: Performed By: #### M G, CMP, TSH, T7, BNP #### [facility] [address] [place] [address] Dr. Glenys Holly MCV (RBC) [Entitic vol] 87.9 fL Normal 81.0-99.0 [facility] Comment on above: Performed By: #### M G, CMP, TSH, T7, BNP #### [facility] [address] [place] [address] Dr. Glenys Holly MONO # 0.7 103/ul Normal 0.3-0.8 [facility] Comment on above: Performed By: #### M G, CMP, TSH, T7, BNP #### [facility] [address] [place] [address] Dr. Glenys Holly Monocytes/100 WBC (Bld) 9.5 % Normal 1.7-12.0 [facility] Comment on above: Performed By: #### M G, CMP, TSH, T7, BNP #### [facility] [address] [place] [address] Dr. Glenys Holly NEUT # 5.2 103/ul Normal 1.4-6.5 [facility] Comment on above: Performed By: #### M G, CMP, TSH, T7, BNP #### [facility] [address] [place] [address] Dr. Glenys Holly Neutrophils/100 WBC (Bld) 69.0 % Normal 43.0-75.0 [facility] Comment on above: Performed By: #### M G, CMP, TSH, T7, BNP #### [facility] [address] [place] [address] Dr. Glenys Holly Platelet mean volume (Bld) [Entitic vol] 11.2 fL Normal 9.5-13.5 [facility] Comment on above: Performed By: #### M G, CMP, TSH, T7, BNP #### [facility] [address] [place] [address] Dr. Glenys Holly PLT 349 103/ul Normal 150-450 [facility] Comment on above: Performed By: #### M G, CMP, TSH, T7, BNP #### [facility] [address] [place] [address] Dr. Glenys Holly RBC 4.88 106/ul Normal 4.20-5.40 [facility] Comment on above: Performed By: #### M G, CMP, TSH, T7, BNP #### [facility] [address] [place] [address] Dr. Glenys oHlly WBC 7.6 103/ul Normal 4.0-11.0 [facility] Comment on above: Performed By: #### M G, CMP, TSH, T7, BNP #### [facility] [address] [address] [address] Glenys Holly PROF 14(COMP METB)on 022 Albumin [Mass/Vol] 3.3 g/dL Critically low 3.4-5.0 Th e [facility] Comment on above: Performed By: #### H STROPN, BNP, CMP ####[facility] [address] [address]Dr. Glenys Holly Albumin/Globulin [Mass ratio] 1.1 {ratio} Normal [facility] Comment on above: Performed By: #### H STROPN, BNP, CMP ####[facility] [address] [address]Dr. Glenys Holly ALP [Catalytic activity/Vol] 78 U/L Normal 46-116 [facility] Comment on above: Performed By: #### H STROPN, BNP, CMP ####[facility] [address] [address]Dr. Glenys Holly ALT [Catalytic activity/Vol] 10 U/L Critically low 14-59 [facility] Comment on above: Performed By: #### H STROPN, BNP, CMP ####[facility] [address] [address]Dr. Glenys Holly Anion gap [Moles/Vol] 11.2 mmol/L Normal [facility] Comment on above: Performed By: #### H STROPN, BNP, CMP ####[facility] [address] [address]Dr. Glenys Holly AST [Catalytic activity/Vol] 15 U/L Normal 15-37 [facility] Comment on above: Performed By: #### H STROPN, BNP, CMP ####[facility] [address] [address]Dr. Glenys Holly Bilirubin [Mass/Vol] 0.4 mg/dL Normal 0.2-1.0 [facility] Comment on above: Performed By: #### H STROPN, BNP, CMP ####[facility] [address] [address]Dr. Glenys Holly Calcium [Mass/Vol] 8.9 mg/dL Normal 8.5-10.1 [facility] Comment on above: Performed By: #### H STROPN, BNP, CMP ####[facility] [address] [address]Dr. Glenys Holly Chloride [Moles/Vol] 98 mmol/L Normal 98-107 [facility] Comment on above: Performed By: #### H STROPN, BNP, CMP ####[facility] [address] [address]Dr. Glenys Holly CO2 [Moles/Vol] 31.1 mmol/L Normal 21.0-32.0 [facility] Comment on above: Performed By: #### H STROPN, BNP, CMP ####[facility] [address] [place], [place] [address]Dr. Glenys Holly Creatinine [Mass/Vol] 1.15 mg/dL Critically high 0.55-1.02 [facility] Comment on above: Performed By: #### H STROPN, BNP, CMP ####[facility] [address] [place], [place] [address]Dr. Glenys Holly EGFR-AF HONDURAN 56 mL/min/1.73m2 Critically low >=60 [facility] Comment on above: Performed By: #### H STROPN, BNP, CMP ####[facility] [address] [place], [place] [address]Dr. Glenys Holly EGFR-NON AF HONDURAN 46 mL/min/1.73m2 Critically low >=60 [facility] Comment on above: Performed By: #### H STROPN, BNP, CMP ####[facility] [address] [place], [place] [address]Dr. Glenys Holly Globulin (S) [Mass/Vol] 3.0 g/dL Normal [facility] Comment on above: Performed By: #### H STROPN, BNP, CMP ####[facility] [address] [place], [place] [address]Dr. Glenys Holly Glucose [Mass/Vol] 107 mg/dL Critically high 74-106 T [facility] Comment on above: Performed By: #### H STROPN, BNP, CMP ####[facility] [address] [address]Dr. Glenys Holly Potassium [Moles/Vol] 3.3 mmol/L Critically low 3.5-5.1 [facility] Comment on above: Performed By: #### H STROPN, BNP, CMP ####[facility] [address] [address]Dr. Glenys Holly Protein [Mass/Vol] 6.3 g/dL Critically low 6.4-8.2 Th [facility] Comment on above: Performed By: #### H STROPN, BNP, CMP ####[facility] [address] [address]Dr. Glenys Holly Sodium [Moles/Vol] 137 mmol/L Normal 136-145 [facility] Comment on above: Performed By: #### H STROPN, BNP, CMP ####[facility] [address] [address]Dr. Glenys Holly Urea nitrogen [Mass/Vol] 29.0 mg/dL Critically high 7.0-18.0 [facility] Comment on above: Performed By: #### H STROPN, BNP, CMP ####[facility] [address] [address]Dr. Glenys Holly Urea nitrogen/Creatinine [Mass ratio] 25.2 mg/mg Normal [facility] Comment on above: Performed By: #### H STROPN, BNP, CMP ####[facility] [address] [address]Dr. Glenys Holly TROPONIN, HIGH SENSITIVITYon 05-10-2022 HSTROP 50.5 pg/mL Normal 4.0-51.3 [facility] Comment on above: Result Comment: CUT- OFF POINTS HAVE BEEN ESTABLISHED BASED ON THE FOURTH UNIVERSAL DEFINITIONS OF MYOCARDIAL INFARCTION. THE UPPER REFERENCE LIMIT (URL) OF TROPONIN, DEFINED THE 99TH PERCENTILE OF cTnI DISTRIBUTION IN A REFERENCE POPULATION, HAS BEEN CONFIRMED THE DECISION THRESHOLD FOR [place] DIAGNOSIS. Performed By: #### H STROPN, BNP, CMP ####[facility] [address] [address]Dr. Glenys Holly XR CHEST 2 Von 05-10-2022 XR CHEST 2 V EXAMINATION: XR CHES T 2 V HISTORY: SHORTNESS OF BREATH COMPARISON: XR chest 05/07/2022 FINDINGS: LUNGS: Hyperexpanded lungs with slightly greater opacity within the mid and upper right lung. VASCULATURE: No increased pulmonary vasculature. PLEURA: No pneumothorax, effusion, or pleural thickening. CARDIAC: No cardiomegaly or cardiac silhouette abnormality. MEDIASTINUM: No visible mass or adenopathy. BONES: No fracture or visible bone lesion. OTHER: Negative. IMPRESSION: 1. Hyperexpanded lungs compatible with COPD. 2. Asymmetric, slightly greater haziness within right mid and upper lung suggestive of mild acute infiltrates. Electronically authenticated by: RAMIRO EVANS Date: 2022-05-10 08:10 Normal [facility] BNPon 05-09-2022 Natriuretic peptide B (Bld) [Mass/Vol] 1975.0 pg/mL Critically high <=1,800.0 [facility] Comment on above: Performed By: #### M G, CMP, TSH, T7, BNP #### [facility] [address] [address] [address] Glenys Holly CBC AUTO DIFFon 05-09-2022 BASO # 0.0 103/ul Normal 0.0-0.1 [facility] Comment on above: Performed By: #### M G, CMP, TSH, T7, BNP #### [facility] [address] [address] [address] Glenys Holly Basophils/100 WBC (Bld) 0.4 % Normal 0.2-2.0 [facility] Comment on above: Performed By: #### M G, CMP, TSH, T7, BNP #### [facility] [address] [address] [address] Glenys Holly EO # 0.0 103/ul Normal 0.0-0.7 [facility] Comment on above: Performed By: #### M G, CMP, TSH, T7, BNP #### [facility] [address] [address] [address] Glenys Holly Eosinophils/100 WBC (Bld) 0.0 % Critically low 0.9-7.0 [facility] Comment on above: Performed By: #### M G, CMP, TSH, T7, BNP #### [facility] [address] [place] [address] Dr. Glenys Holly Erythrocyte distribution width (RBC) [Ratio] 15.2 % Critically high 11.0-15.0 [facility] Comment on above: Performed By: #### M G, CMP, TSH, T7, BNP #### [facility] [address] [place] [address] Dr. Glenys Holly Hematocrit (Bld) [Volume fraction] 41.7 % Normal 36.0-48.0 [facility] Comment on above: Performed By: #### M G, CMP, TSH, T7, BNP #### [facility] [address] [place] [address] Dr. Glenys Holly Hemoglobin (Bld) [Mass/Vol] 14.1 g/dL Normal 12.0-16.0 [facility] Comment on above: Performed By: #### M G, CMP, TSH, T7, BNP #### [facility] [address] [place] [address] Dr. Glenys Holly IG # 0.12 10e3/ul Critically high 0.00-0.03 [facility] Comment on above: Performed By: #### M G, CMP, TSH, T7, BNP #### [facility] [address] [place] [address] Dr. Glenys Holly IG % 1.2 % Critically high 0.0-0.5 [facility] Comment on above: Performed By: #### M G, CMP, TSH, T7, BNP #### [facility] [address] [place] [address] Dr. Glenys Holly LYMPH # 1.6 103/ul Normal 1.2-3.8 [facility] Comment on above: Performed By: #### M G, CMP, TSH, T7, BNP #### [facility] [address] [place] [address] Dr. Glenys Holly Lymphocytes/100 WBC (Bld) 16.0 % Critically low 20.5-60.0 [facility] Comment on above: Performed By: #### M G, CMP, TSH, T7, BNP #### [facility] [address] [place] [address] Dr. Glenys Holly MANUAL DIFF REQ NO Normal [facility] Comment on above: Performed By: #### M G, CMP, TSH, T7, BNP #### [facility] [address] [place] [address] Dr. Glenys Holly MCH (RBC) [Entitic mass] 30.0 pg Normal 26.7-34.0 [facility] Comment on above: Performed By: #### M G, CMP, TSH, T7, BNP #### [facility] [address] [place] [address] Dr. Glenys Holly MCHC (RBC) [Mass/Vol] 33.8 g/dL Normal 29.9-35.2 [facility] Comment on above: Performed By: #### M G, CMP, TSH, T7, BNP #### [facility] [address] [place] [address] Dr. Glenys Holly MCV (RBC) [Entitic vol] 88.7 fL Normal 81.0-99.0 [facility] Comment on above: Performed By: #### M G, CMP, TSH, T7, BNP #### [facility] [address] [place] [address] Dr. Glenys Holly MONO # 1.3 103/ul Critically high 0.3-0.8 [facility] Comment on above: Performed By: #### M G, CMP, TSH, T7, BNP #### [facility] [address] [place] [address] Dr. Glenys Holly Monocytes/100 WBC (Bld) 13.2 % Critically high 1.7-12.0 [facility] Comment on above: Performed By: #### M G, CMP, TSH, T7, BNP #### [facility] [address] [place] [address] Dr. Glenys Holly NEUT # 6.8 103/ul Critically high 1.4-6.5 [facility] Comment on above: Performed By: #### M G, CMP, TSH, T7, BNP #### [facility] [address] [address] [address] Glenys Holly Neutrophils/100 WBC (Bld) 69.2 % Normal 43.0-75.0 [facility] Comment on above: Performed By: #### M G, CMP, TSH, T7, BNP #### [facility] [address] [place] [address] Dr. Glenys Holly Platelet mean volume (Bld) [Entitic vol] 11.6 fL Normal 9.5-13.5 [facility] Comment on above: Performed By: #### M G, CMP, TSH, T7, BNP #### [facility] [address] [place] [address] Dr. Glenys Holly PLT 329 103/ul Normal 150-450 [facility] Comment on above: Performed By: #### M G, CMP, TSH, T7, BNP #### [facility] [address] [place] [address] Dr. Glenys Holly RBC 4.70 106/ul Normal 4.20-5.40 [facility] Comment on above: Performed By: #### M G, CMP, TSH, T7, BNP #### [facility] [address] [place] [address] Dr. Glenys Holly WBC 9.9 103/ul Normal 4.0-11.0 [facility] Comment on above: Performed By: #### M G, CMP, TSH, T7, BNP #### [facility] [address] [place] [address] Dr. Glenys Holly PROF 14(COMP METB)on 022 Albumin [Mass/Vol] 3.0 g/dL Critically low 3.4-5.0 [facility] Comment on above: Performed By: #### M G, CMP, TSH, T7, BNP #### [facility] [address] [place] [address] Dr. Glenys Holly Albumin/Globulin [Mass ratio] 1.1 {ratio} Normal [facility] Comment on above: Performed By: #### M G, CMP, TSH, T7, BNP #### [facility] [address] [place] [address] Dr. Glenys Holly ALP [Catalytic activity/Vol] 78 U/L Normal 46-116 [facility] Comment on above: Performed By: #### M G, CMP, TSH, T7, BNP #### [facility] [address] [place] [address] Dr. Glenys Holly ALT [Catalytic activity/Vol] 10 U/L Critically low 14-59 [facility] Comment on above: Performed By: #### M G, CMP, TSH, T7, BNP #### [facility] [address] [place] [address] Dr. Glenys Holly Anion gap [Moles/Vol] 9.6 mmol/L Normal [facility] Comment on above: Performed By: #### M G, CMP, TSH, T7, BNP #### [facility] [address] [place] [address] Dr. Glenys Holly AST [Catalytic activity/Vol] 18 U/L Normal 15-37 [facility] Comment on above: Performed By: #### M G, CMP, TSH, T7, BNP #### [facility] [address] [place] [address] Dr. Glenys Holly Bilirubin [Mass/Vol] 0.3 mg/dL Normal 0.2-1.0 [facility] Comment on above: Performed By: #### M G, CMP, TSH, T7, BNP #### [facility] [address] [place] [address] Dr. Glenys Holly Calcium [Mass/Vol] 9.1 mg/dL Normal 8.5-10.1 [facility] Comment on above: Performed By: #### M G, CMP, TSH, T7, BNP #### [facility] [address] [place] [address] Dr. Glenys Holly Chloride [Moles/Vol] 102 mmol/L Normal 98-107 [facility] Comment on above: Performed By: #### M G, CMP, TSH, T7, BNP #### [facility] [address] [place] [address] Dr. lGenys Holly CO2 [Moles/Vol] 30.3 mmol/L Normal 21.0-32.0 [facility] Comment on above: Performed By: #### M G, CMP, TSH, T7, BNP #### [facility] [address] [place] [address] Dr. Glenys Holly Creatinine [Mass/Vol] 0.83 mg/dL Normal 0.55-1.02 [facility] Comment on above: Performed By: #### M G, CMP, TSH, T7, BNP #### [facility] [address] [place] [address] Dr. Glenys Holly EGFR-AF HONDURAN >60 Normal >=60 [facility] Comment on above: Performed By: #### M G, CMP, TSH, T7, BNP #### [facility] [address] [place] [address] Dr. Glenys Holly EGFR-NON AF HONDURAN >60 Normal >=60 [facility] Comment on above: Performed By: #### M G, CMP, TSH, T7, BNP #### [facility] [address] [place] [address] Dr. Glenys Holly Globulin (S) [Mass/Vol] 2.8 g/dL Normal [facility] Comment on above: Performed By: #### M G, CMP, TSH, T7, BNP #### [facility] [address] [place] [address] Dr. Glenys Holly Glucose [Mass/Vol] 105 mg/dL Normal 74-106 [facility] Comment on above: Performed By: #### M G, CMP, TSH, T7, BNP #### [facility] [address] [place] [address] Dr. Glenys Holly Potassium [Moles/Vol] 2.9 mmol/L Critically low 3.5-5.1 [facility] Comment on above: Performed By: #### M G, CMP, TSH, T7, BNP #### [facility] [address] [place] [address] Dr. Glenys Holly Protein [Mass/Vol] 5.8 g/dL Critically low 6.4-8.2 Th e [facility] Comment on above: Performed By: #### M G, CMP, TSH, T7, BNP #### [facility] [address] [address] [address] Glenys Holly Sodium [Moles/Vol] 138 mmol/L Normal 136-145 [facility] Comment on above: Performed By: #### M G, CMP, TSH, T7, BNP #### [facility] [address] [address] [address] Glenys Holly Urea nitrogen [Mass/Vol] 21.0 mg/dL Critically high 7.0-18.0 [facility] Comment on above: Performed By: #### M G, CMP, TSH, T7, BNP #### [facility] [address] [address] [address] Glenys Holly Urea nitrogen/Creatinine [Mass ratio] 25.3 mg/mg Normal [facility] Comment on above: Performed By: #### M G, CMP, TSH, T7, BNP #### [facility] [address] [address] [address] Glenys Holly TROPONIN, HIGH SENSITIVITYon 05-09-2022 HSTROP 49.8 pg/mL Normal 4.0-51.3 [facility] Comment on above: Result Comment: CUT- OFF POINTS HAVE BEEN ESTABLISHED BASED ON THE FOURTH UNIVERSAL DEFINITIONS OF MYOCARDIAL INFARCTION. THE UPPER REFERENCE LIMIT (URL) OF TROPONIN, DEFINED THE 99TH PERCENTILE OF cTnI DISTRIBUTION IN A REFERENCE POPULATION, HAS BEEN CONFIRMED THE DECISION THRESHOLD FOR [place] DIAGNOSIS. Performed By: #### M G, CMP, TSH, T7, BNP #### [facility] [address] [address] [address] Glenys Holly BNPon 05-08-2022 Natriuretic peptide B (Bld) [Mass/Vol] 2723.0 pg/mL Critically high <=1,800.0 [facility] Comment on above: Performed By: #### C MP, HSTROPN, BNP ####[facility] [address] [address]Dr. Glenys Holly CBC AUTO DIFFon 05-08-2022 BASO # 0.0 103/ul Normal 0.0-0.1 [facility] Comment on above: Performed By: #### M G, CMP, TSH, T7, BNP #### [facility] [address] [place] [address] Dr. Glenys Holly Basophils/100 WBC (Bld) 0.2 % Normal 0.2-2.0 [facility] Comment on above: Performed By: #### M G, CMP, TSH, T7, BNP #### [facility] [address] [place] [address] Dr. Glenys Holly EO # 0.0 103/ul Normal 0.0-0.7 [facility] Comment on above: Performed By: #### M G, CMP, TSH, T7, BNP #### [facility] [address] [place] [address] Dr. Glenys Holly Eosinophils/100 WBC (Bld) 0.1 % Critically low 0.9-7.0 [facility] Comment on above: Performed By: #### M G, CMP, TSH, T7, BNP #### [facility] [address] [place] [address] Dr. Glenys Holly Erythrocyte distribution width (RBC) [Ratio] 15.9 % Critically high 11.0-15.0 [facility] Comment on above: Performed By: #### M G, CMP, TSH, T7, BNP #### [facility] [address] [place] [address] Dr. Glenys Holly Hematocrit (Bld) [Volume fraction] 38.0 % Normal 36.0-48.0 [facility] Comment on above: Performed By: #### M G, CMP, TSH, T7, BNP #### [facility] [address] [place] [address] Dr. Glenys Holly Hemoglobin (Bld) [Mass/Vol] 12.5 g/dL Normal 12.0-16.0 [facility] Comment on above: Performed By: #### M G, CMP, TSH, T7, BNP #### [facility] [address] [address] [address] Glenys Holly IG # 0.17 10e3/ul Critically high 0.00-0.03 [facility] Comment on above: Performed By: #### M G, CMP, TSH, T7, BNP #### [facility] [address] [place] [address] Dr. Glenys Holly IG % 1.1 % Critically high 0.0-0.5 [facility] Comment on above: Performed By: #### M G, CMP, TSH, T7, BNP #### [facility] [address] [place] [address] Dr. Glenys Holly LYMPH # 1.0 103/ul Critically low 1.2-3.8 [facility] Comment on above: Performed By: #### M G, CMP, TSH, T7, BNP #### [facility] [address] [place] [address] Dr. Glenys Holly Lymphocytes/100 WBC (Bld) 6.2 % Critically low 20.5-60.0 [facility] Comment on above: Performed By: #### M G, CMP, TSH, T7, BNP #### [facility] [address] [place] [address] Dr. Glenys Holly MANUAL DIFF REQ NO Normal [facility] Comment on above: Performed By: #### M G, CMP, TSH, T7, BNP #### [facility] [address] [place] [address] Dr. Glenys Holly MCH (RBC) [Entitic mass] 30.1 pg Normal 26.7-34.0 [facility] Comment on above: Performed By: #### M G, CMP, TSH, T7, BNP #### [facility] [address] [place] [address] Dr. Glenys Holly MCHC (RBC) [Mass/Vol] 32.9 g/dL Normal 29.9-35.2 [facility] Comment on above: Performed By: #### M G, CMP, TSH, T7, BNP #### [facility] [address] [place] [address] Dr. Glenys Holly MCV (RBC) [Entitic vol] 91.6 fL Normal 81.0-99.0 [facility] Comment on above: Performed By: #### M G, CMP, TSH, T7, BNP #### [facility] [address] [address] [address] Glenys Holly MONO # 0.8 103/ul Normal 0.3-0.8 [facility] Comment on above: Performed By: #### M G, CMP, TSH, T7, BNP #### [facility] [address] [address] [address] Glenys Holly Monocytes/100 WBC (Bld) 5.2 % Normal 1.7-12.0 [facility] Comment on above: Performed By: #### M G, CMP, TSH, T7, BNP #### [facility] [address] [place] [address] Dr. Glenys Holly NEUT # 14.0 103/ul Critically high 1.4-6.5 [facility] Comment on above: Performed By: #### M G, CMP, TSH, T7, BNP #### [facility] [address] [place] [address] Dr. Glenys Holly Neutrophils/100 WBC (Bld) 87.2 % Critically high 43.0-75.0 [facility] Comment on above: Performed By: #### M G, CMP, TSH, T7, BNP #### [facility] [address] [place] [address] Dr. Glenys Holly Platelet mean volume (Bld) [Entitic vol] 11.7 fL Normal 9.5-13.5 [facility] Comment on above: Performed By: #### M G, CMP, TSH, T7, BNP #### [facility] [address] [address] [address] Glenys Holly PLT 285 103/ul Normal 150-450 [facility] Comment on above: Performed By: #### M G, CMP, TSH, T7, BNP #### [facility] [address] [place] [address] Dr. Glenys Holly RBC 4.15 106/ul Critically low 4.20-5.40 The [facility] Comment on above: Performed By: #### M G, CMP, TSH, T7, BNP #### [facility] [address] [address] [address] Glenys Holly WBC 16.0 103/ul Critically high 4.0-11.0 [facility] Comment on above: Performed By: #### M G, CMP, TSH, T7, BNP #### [facility] [address] [address] [address] Glenys Holly PROF 14(COMP METB)on 022 Albumin [Mass/Vol] 2.7 g/dL Critically low 3.4-5.0 [facility] Comment on above: Performed By: #### C MP, HSTROPN, BNP #### [facility] [address] [place] [address] Dr. Glenys Holly Albumin/Globulin [Mass ratio] 1.0 {ratio} Normal [facility] Comment on above: Performed By: #### C MP, HSTROPN, BNP #### [facility] [address] [place] [address] Dr. Glenys Holly ALP [Catalytic activity/Vol] 73 U/L Normal 46-116 [facility] Comment on above: Performed By: #### C MP, HSTROPN, BNP #### [facility] [address] [place] [address] Dr. Glenys Holly ALT [Catalytic activity/Vol] 11 U/L Critically low 14-59 [facility] Comment on above: Performed By: #### C MP, HSTROPN, BNP #### [facility] [address] [place] [address] Dr. Glenys Holly Anion gap [Moles/Vol] 10.5 mmol/L Normal [facility] Comment on above: Performed By: #### C MP, HSTROPN, BNP #### [facility] [address] [place] [address] Dr. Glenys Holly AST [Catalytic activity/Vol] 21 U/L Normal 15-37 [facility] Comment on above: Performed By: #### C MP, HSTROPN, BNP #### [facility] [address] [place] [address] Dr. Glenys Holly Bilirubin [Mass/Vol] 0.3 mg/dL Normal 0.2-1.0 [facility] Comment on above: Performed By: #### C MP, HSTROPN, BNP #### [facility] [address] [place] [address] Dr. Glenys Holly Calcium [Mass/Vol] 8.6 mg/dL Normal 8.5-10.1 [facility] Comment on above: Performed By: #### C MP, HSTROPN, BNP #### [facility] [address] [place] [address] Dr. Glenys Holly Chloride [Moles/Vol] 106 mmol/L Normal 98-107 [facility] Comment on above: Performed By: #### C MP, HSTROPN, BNP #### [facility] [address] [place] [address] Dr. Glenys Holly CO2 [Moles/Vol] 29.0 mmol/L Normal 21.0-32.0 [facility] Comment on above: Performed By: #### C MP, HSTROPN, BNP #### [facility] [address] [place] [address] Dr. Glenys Holly Creatinine [Mass/Vol] 0.88 mg/dL Normal 0.55-1.02 [facility] Comment on above: Performed By: #### C MP, HSTROPN, BNP #### [facility] [address] [place] [address] Dr. Glenys Holly EGFR-AF HONDURAN >60 Normal >=60 [facility] Comment on above: Performed By: #### C MP, HSTROPN, BNP #### [facility] [address] [place] [address] Dr. Glenys Holly EGFR-NON AF HONDURAN >60 Normal >=60 [facility] Comment on above: Performed By: #### C MP, HSTROPN, BNP #### [facility] [address] [place] [address] Dr. Glenys Holly Globulin (S) [Mass/Vol] 2.6 g/dL Normal [facility] Comment on above: Performed By: #### C MP, HSTROPN, BNP #### [facility] [address] [place] [address] Dr. Glenys Holly Glucose [Mass/Vol] 116 mg/dL Critically high 74-106 [facility] Comment on above: Performed By: #### C MP, HSTROPN, BNP #### [facility] [address] [place] [address] Dr. Glenys Holly Potassium [Moles/Vol] 3.5 mmol/L Normal 3.5-5.1 [facility] Comment on above: Performed By: #### C MP, HSTROPN, BNP #### [facility] [address] [place] [address] Dr. Glenys Holly Protein [Mass/Vol] 5.3 g/dL Critically low 6.4-8.2 Th [facility] Comment on above: Performed By: #### C MP, HSTROPN, BNP #### [facility] [address] [place] [address] Dr. Glenys Holly Sodium [Moles/Vol] 142 mmol/L Normal 136-145 [facility] Comment on above: Performed By: #### C MP, HSTROPN, BNP #### [facility] [address] [place] [address] Dr. Glenys Holly Urea nitrogen [Mass/Vol] 23.0 mg/dL Critically high 7.0-18.0 [facility] Comment on above: Performed By: #### C MP, HSTROPN, BNP #### [facility] [address] [place] [address] Dr. Glenys Holly Urea nitrogen/Creatinine [Mass ratio] 26.1 mg/mg Normal [facility] Comment on above: Performed By: #### C MP, HSTROPN, BNP #### [facility] [address] [place] [address] Dr. Glenys Holly TROPONIN, HIGH SENSITIVITYon 05-08-2022 HSTROP 60.8 pg/mL Critically high 4.0-51.3 [facility] Comment on above: Result Comment: CUT- OFF POINTS HAVE BEEN ESTABLISHED BASED ON THE FOURTH UNIVERSAL DEFINITIONS OF MYOCARDIAL INFARCTION. THE UPPER REFERENCE LIMIT (URL) OF TROPONIN, DEFINED THE 99TH PERCENTILE OF cTnI DISTRIBUTION IN A REFERENCE POPULATION, HAS BEEN CONFIRMED THE DECISION THRESHOLD FOR [place] DIAGNOSIS. Performed By: #### C MP, HSTROPN, BNP ####[facility] [address] [address]Dr. Glenys Holly BNPon 05-07-2022 Natriuretic peptide B (Bld) [Mass/Vol] 1476.0 pg/mL Normal <=1,800.0 [facility] Comment on above: Performed By: #### C MP, HSTROPN, BNP ####[facility] [address] [address]Dr. Glenys Holly CBC AUTO DIFFon 05-07-2022 BASO # 0.0 103/ul Normal 0.0-0.1 [facility] Comment on above: Performed By: #### M G, CMP, TSH, T7, BNP #### [facility] [address] [address] [address] Glenys Holly Basophils/100 WBC (Bld) 0.1 % Critically low 0.2-2.0 [facility] Comment on above: Performed By: #### M G, CMP, TSH, T7, BNP #### [facility] [address] [address] [address] Glenys Holly EO # 0.0 103/ul Normal 0.0-0.7 [facility] Comment on above: Performed By: #### M G, CMP, TSH, T7, BNP #### [facility] [address] [address] [address] Glenys Holly Eosinophils/100 WBC (Bld) 0.0 % Critically low 0.9-7.0 [facility] Comment on above: Performed By: #### M G, CMP, TSH, T7, BNP #### [facility] [address] [address] [address] Glenys Holly Erythrocyte distribution width (RBC) [Ratio] 16.3 % Critically high 11.0-15.0 [facility] Comment on above: Performed By: #### M G, CMP, TSH, T7, BNP #### [facility] [address] [place] [address] Dr. Glenys Holly Hematocrit (Bld) [Volume fraction] 34.1 % Critically low 36.0-48.0 [facility] Comment on above: Performed By: #### M G, CMP, TSH, T7, BNP #### [facility] [address] [place] [address] Dr. Glenys Holly Hemoglobin (Bld) [Mass/Vol] 11.2 g/dL Critically low 12.0-16.0 [facility] Comment on above: Performed By: #### M G, CMP, TSH, T7, BNP #### [facility] [address] [place] [address] Dr. Glenys Holly IG # 0.22 10e3/ul Critically high 0.00-0.03 [facility] Comment on above: Performed By: #### M G, CMP, TSH, T7, BNP #### [facility] [address] [place] [address] Dr. Glenys Holly IG % 1.0 % Critically high 0.0-0.5 [facility] Comment on above: Performed By: #### M G, CMP, TSH, T7, BNP #### [facility] [address] [place] [address] Dr. Glenys Holly LYMPH # 1.3 103/ul Normal 1.2-3.8 [facility] Comment on above: Performed By: #### M G, CMP, TSH, T7, BNP #### [facility] [address] [place] [address] Dr. Glenys Holly Lymphocytes/100 WBC (Bld) 6.0 % Critically low 20.5-60.0 [facility] Comment on above: Performed By: #### M G, CMP, TSH, T7, BNP #### [facility] [address] [place] [address] Dr. Glenys Holly MANUAL DIFF REQ NO Normal [facility] Comment on above: Performed By: #### M G, CMP, TSH, T7, BNP #### [facility] [address] [place] [address] Dr. Glenys Holly MCH (RBC) [Entitic mass] 30.7 pg Normal 26.7-34.0 [facility] Comment on above: Performed By: #### M G, CMP, TSH, T7, BNP #### [facility] [address] [place] [address] Dr. Glenys Holly MCHC (RBC) [Mass/Vol] 32.8 g/dL Normal 29.9-35.2 [facility] Comment on above: Performed By: #### M G, CMP, TSH, T7, BNP #### [facility] [address] [place] [address] Dr. Glenys Holly MCV (RBC) [Entitic vol] 93.4 fL Normal 81.0-99.0 [facility] Comment on above: Performed By: #### M G, CMP, TSH, T7, BNP #### [facility] [address] [place] [address] Dr. Glenys Holly MONO # 1.1 103/ul Critically high 0.3-0.8 [facility] Comment on above: Performed By: #### M G, CMP, TSH, T7, BNP #### [facility] [address] [place] [address] Dr. Glenys Holly Monocytes/100 WBC (Bld) 4.8 % Normal 1.7-12.0 [facility] Comment on above: Performed By: #### M G, CMP, TSH, T7, BNP #### [facility] [address] [place] [address] Dr. Glenys Holly NEUT # 19.4 103/ul Critically high 1.4-6.5 [facility] Comment on above: Performed By: #### M G, CMP, TSH, T7, BNP #### [facility] [address] [place] [address] Dr. Glenys Holly Neutrophils/100 WBC (Bld) 88.1 % Critically high 43.0-75.0 [facility] Comment on above: Performed By: #### M G, CMP, TSH, T7, BNP #### [facility] [address] [address] [address] Glenys Holly Platelet mean volume (Bld) [Entitic vol] 11.6 fL Normal 9.5-13.5 [facility] Comment on above: Performed By: #### M G, CMP, TSH, T7, BNP #### [facility] [address] [address] [address] Glenys Holly PLT 309 103/ul Normal 150-450 [facility] Comment on above: Performed By: #### M G, CMP, TSH, T7, BNP #### [facility] [address] [address] [address] Glenys Holly RBC 3.65 106/ul Critically low 4.20-5.40 [facility] Comment on above: Performed By: #### M G, CMP, TSH, T7, BNP #### [facility] [address] [address] [address] Glenys Holly WBC 22.0 103/ul Critically high 4.0-11.0 [facility] Comment on above: Performed By: #### M G, CMP, TSH, T7, BNP #### [facility] [address] [address] [address] Glenys Holly PROF 14(COMP METB)on 022 Albumin [Mass/Vol] 2.5 g/dL Critically low 3.4-5.0 [facility] Comment on above: Performed By: #### C MP, HSTROPN, BNP ####[facility] [address] [address]Dr. Glenys Holly Albumin/Globulin [Mass ratio] 1.0 {ratio} Normal [facility] Comment on above: Performed By: #### C MP, HSTROPN, BNP ####[facility] [address] [address]Dr. Glenys Holly ALP [Catalytic activity/Vol] 69 U/L Normal 46-116 [facility] Comment on above: Performed By: #### C MP, HSTROPN, BNP ####[facility] [address] [address]Dr. Glenys Holly ALT [Catalytic activity/Vol] 12 U/L Critically low 14-59 [facility] Comment on above: Performed By: #### C MP, HSTROPN, BNP ####[facility] [address] [address]Dr. Glenys Holly Anion gap [Moles/Vol] 10.9 mmol/L Normal [facility] Comment on above: Performed By: #### C MP, HSTROPN, BNP ####[facility] [address] [address]Dr. Glenys Holly AST [Catalytic activity/Vol] 25 U/L Normal 15-37 [facility] Comment on above: Performed By: #### C MP, HSTROPN, BNP ####[facility] [address] [place], [place] [address]Dr. Glenys Holly Bilirubin [Mass/Vol] 0.1 mg/dL Critically low 0.2-1.0 [facility] Comment on above: Performed By: #### C MP, HSTROPN, BNP ####[facility] [address] [place], [place] [address]Dr. Glenys Holly Calcium [Mass/Vol] 9.1 mg/dL Normal 8.5-10.1 [facility] Comment on above: Performed By: #### C MP, HSTROPN, BNP ####[facility] [address] [place], [place] [address]Dr. Glenys Holly Chloride [Moles/Vol] 110 mmol/L Critically high 98-107 [facility] Comment on above: Performed By: #### C MP, HSTROPN, BNP ####[facility] [address] [place], [place] [address]Dr. Glenys Holly CO2 [Moles/Vol] 24.8 mmol/L Normal 21.0-32.0 [facility] Comment on above: Performed By: #### C MP, HSTROPN, BNP ####[facility] [address] [place], [place] [address]Dr. Glenys Holly Creatinine [Mass/Vol] 0.87 mg/dL Normal 0.55-1.02 [facility] Comment on above: Performed By: #### C MP, HSTROPN, BNP ####[facility] [address] [address]Dr. Glenys Holly EGFR-AF HONDURAN >60 Normal >=60 [facility] Comment on above: Performed By: #### C MP, HSTROPN, BNP ####[facility] [address] [address]Dr. Glenys Holly EGFR-NON AF HONDURAN >60 Normal >=60 [facility] Comment on above: Performed By: #### C MP, HSTROPN, BNP ####[facility] [address] [address]Dr. Glenys Holly Globulin (S) [Mass/Vol] 2.5 g/dL Normal [facility] Comment on above: Performed By: #### C MP, HSTROPN, BNP ####[facility] [address] [address]Dr. Glenys Holly Glucose [Mass/Vol] 128 mg/dL Critically high 74-106 [facility] Comment on above: Performed By: #### C MP, HSTROPN, BNP ####[facility] [address] [address]Dr. Glenys Holly Potassium [Moles/Vol] 4.7 mmol/L Normal 3.5-5.1 [facility] Comment on above: Performed By: #### C MP, HSTROPN, BNP ####[facility] [address] [address]Dr. Glenys Holly Protein [Mass/Vol] 5.0 g/dL Critically low 6.4-8.2 Th [facility] Comment on above: Performed By: #### C MP, HSTROPN, BNP ####[facility] [address] [address]Dr. Glenys Holly Sodium [Moles/Vol] 141 mmol/L Normal 136-145 [facility] Comment on above: Performed By: #### C MP, HSTROPN, BNP ####[facility] [address] [id number]. Glenys Holly Urea nitrogen [Mass/Vol] 28.0 mg/dL Critically high 7.0-18.0 [facility] Comment on above: Performed By: #### C MP, HSTROPN, BNP ####[facility] [address] [id number]. Glenys Holly Urea nitrogen/Creatinine [Mass ratio] 32.2 mg/mg Normal [facility] Comment on above: Performed By: #### C MP, HSTROPN, BNP ####[facility] [address] [address]Dr. Glenys Holly TROPONIN, HIGH SENSITIVITYon 05-07-2022 HSTROP 78.5 pg/mL Critically high 4.0-51.3 [facility] Comment on above: Result Comment: CUT- OFF POINTS HAVE BEEN ESTABLISHED BASED ON THE FOURTH UNIVERSAL DEFINITIONS OF MYOCARDIAL INFARCTION. THE UPPER REFERENCE LIMIT (URL) OF TROPONIN, DEFINED THE 99TH PERCENTILE OF cTnI DISTRIBUTION IN A REFERENCE POPULATION, HAS BEEN CONFIRMED THE DECISION THRESHOLD FOR [place] DIAGNOSIS. Performed By: #### C MP, HSTROPN, BNP ####[facility] [address] [id number]. Glenys Holly XR CHEST 2 Von 05-07-2022 XR CHEST 2 V XR CHEST 2 V CLINICAL: SHORTNESS OF BREATH COMPARISON: Chest CT 05/05/2022 and chest radiograph 05/05/2022 TECHNIQUE: PA and lateral chest radiographs were obtained. FINDINGS: Heart size is within normal limits. Central pulmonary vasculature is prominent, as previously, likely chronic in the setting of COPD. No discernible pneumothorax or dense regional consolidation. Rounded opacities subtly projecting over the lower lungs consistent with asymmetric nipple shadows. There is blunting at the costophrenic sulci bilaterally, increased compared to the study of 2 days prior osseous structures appear intact. IMPRESSION: Small bilateral pleural effusions, greater on the left, new compared to the study of 2 days prior. No localizing airspace consolidation. Coarsened parahilar interstitial markings are similar to prior and may reflect chronic interstitial inflammation or atelectasis. Pulmonary hyperinflation consistent with COPD. Electronically authenticated by: SUPA DEAN Date: 2022-05-07 10:34 Normal [facility] BNPon 05-06-2022 Natriuretic peptide B (Bld) [Mass/Vol] 1143.0 pg/mL Normal <=1,800.0 [facility] Comment on above: Performed By: #### C MP, BNP ####[facility] [address] [address]Dr. Glenys Holly CBC AUTO DIFFon 05-06-2022 BASO # 0.0 103/ul Normal 0.0-0.1 [facility] Comment on above: Performed By: #### M G, CMP, TSH, T7, BNP #### [facility] [address] [address] [address] Glenys Holly Basophils/100 WBC (Bld) 0.1 % Critically low 0.2-2.0 [facility] Comment on above: Performed By: #### M G, CMP, TSH, T7, BNP #### [facility] [address] [address] [address] Glenys Holly EO # 0.0 103/ul Normal 0.0-0.7 [facility] Comment on above: Performed By: #### M G, CMP, TSH, T7, BNP #### [facility] [address] [address] [address] Glenys Holly Eosinophils/100 WBC (Bld) 0.0 % Critically low 0.9-7.0 [facility] Comment on above: Performed By: #### M G, CMP, TSH, T7, BNP #### [facility] [address] [address] [address] Glenys Holly Erythrocyte distribution width (RBC) [Ratio] 15.8 % Critically high 11.0-15.0 [facility] Comment on above: Performed By: #### M G, CMP, TSH, T7, BNP #### [facility] [address] [address] [address] Glenys Holly Hematocrit (Bld) [Volume fraction] 36.7 % Normal 36.0-48.0 [facility] Comment on above: Performed By: #### M G, CMP, TSH, T7, BNP #### [facility] [address] [place] [address] Dr. Glenys Holly Hemoglobin (Bld) [Mass/Vol] 12.3 g/dL Normal 12.0-16.0 [facility] Comment on above: Performed By: #### M G, CMP, TSH, T7, BNP #### [facility] [address] [place] [address] Dr. Glenys Holly IG # 0.10 10e3/ul Critically high 0.00-0.03 [facility] Comment on above: Performed By: #### M G, CMP, TSH, T7, BNP #### [facility] [address] [place] [address] Dr. Glenys Holly IG % 0.5 % Normal 0.0-0.5 [facility] Comment on above: Performed By: #### M G, CMP, TSH, T7, BNP #### [facility] [address] [place] [address] Dr. Glenys Holly LYMPH # 1.4 103/ul Normal 1.2-3.8 [facility] Comment on above: Performed By: #### M G, CMP, TSH, T7, BNP #### [facility] [address] [place] [address] Dr. Glenys Holly Lymphocytes/100 WBC (Bld) 7.2 % Critically low 20.5-60.0 [facility] Comment on above: Performed By: #### M G, CMP, TSH, T7, BNP #### [facility] [address] [place] [address] Dr. Glenys Holly MANUAL DIFF REQ NO Normal [facility] Comment on above: Performed By: #### M G, CMP, TSH, T7, BNP #### [facility] [address] [place] [address] Dr. Glenys Holly MCH (RBC) [Entitic mass] 30.9 pg Normal 26.7-34.0 [facility] Comment on above: Performed By: #### M G, CMP, TSH, T7, BNP #### [facility] [address] [place] [address] Dr. Glenys Holly MCHC (RBC) [Mass/Vol] 33.5 g/dL Normal 29.9-35.2 [facility] Comment on above: Performed By: #### M G, CMP, TSH, T7, BNP #### [facility] [address] [place] [address] Dr. Glenys Holly MCV (RBC) [Entitic vol] 92.2 fL Normal 81.0-99.0 [facility] Comment on above: Performed By: #### M G, CMP, TSH, T7, BNP #### [facility] [address] [place] [address] Dr. Glenys Holly MONO # 0.9 103/ul Critically high 0.3-0.8 [facility] Comment on above: Performed By: #### M G, CMP, TSH, T7, BNP #### [facility] [address] [place] [address] Dr. Glenys Holly Monocytes/100 WBC (Bld) 4.6 % Normal 1.7-12.0 [facility] Comment on above: Performed By: #### M G, CMP, TSH, T7, BNP #### [facility] [address] [place] [address] Dr. Glenys Holly NEUT # 17.4 103/ul Critically high 1.4-6.5 [facility] Comment on above: Performed By: #### M G, CMP, TSH, T7, BNP #### [facility] [address] [place] [address] Dr. Glenys Holly Neutrophils/100 WBC (Bld) 87.6 % Critically high 43.0-75.0 [facility] Comment on above: Performed By: #### M G, CMP, TSH, T7, BNP #### [facility] [address] [place] [address] Dr. Glenys Holly Platelet mean volume (Bld) [Entitic vol] 11.2 fL Normal 9.5-13.5 [facility] Comment on above: Performed By: #### M G, CMP, TSH, T7, BNP #### [facility] [address] [address] [address] Glenys Holly PLT 310 103/ul Normal 150-450 [facility] Comment on above: Performed By: #### M G, CMP, TSH, T7, BNP #### [facility] [address] [address] [address] Glenys Holly RBC 3.98 106/ul Critically low 4.20-5.40 [facility] Comment on above: Performed By: #### M G, CMP, TSH, T7, BNP #### [facility] [address] [address] [address] Glenys Holly WBC 19.8 103/ul Critically high 4.0-11.0 [facility] Comment on above: Performed By: #### M G, CMP, TSH, T7, BNP #### [facility] [address] [address] [address] Glenys Holly LACTATE/LACTIC ACIDon 2021 Lactate [Moles/Vol] 1.1 mmol/L Normal 0.4-1.9 [facility] Comment on above: Performed By: #### M G, CMP, TSH, T7, BNP #### [facility] [address] [address] [address] Glenys Holly POINT OF CARE GLUCOSEon 04-12 Glucose [Mass/Vol] 164 mg/dL Critically high 74-106 [facility] Comment on above: Performed By: #### M G, CMP, TSH, T7, BNP #### [facility] [address] [address] [address] Glenys Holly PROF 14(COMP METB)on 022 Albumin [Mass/Vol] 2.6 g/dL Critically low 3.4-5.0 [facility] Comment on above: Performed By: #### C MP, BNP ####[facility] [address] [address]Dr. Glenys Holly Albumin/Globulin [Mass ratio] 1.0 {ratio} Normal [facility] Comment on above: Performed By: #### C MP, BNP ####[facility] [address] [id number]. Glenys Holly ALP [Catalytic activity/Vol] 88 U/L Normal 46-116 [facility] Comment on above: Performed By: #### C MP, BNP ####[facility] [address] [id number]. Glenys Holly ALT [Catalytic activity/Vol] 1 U/L Critically low 14-59 [facility] Comment on above: Performed By: #### C MP, BNP ####[facility] [address] [id number]. Glenys Avni Anion gap [Moles/Vol] 9.9 mmol/L Normal [facility] Comment on above: Performed By: #### C MP, BNP ####[facility] [address] [place], [place] [address]Dr. Glenys Avni AST [Catalytic activity/Vol] 19 U/L Normal 15-37 [facility] Comment on above: Performed By: #### C MP, BNP ####[facility] [address] [phone]. Glenys Avni Bilirubin [Mass/Vol] 0.2 mg/dL Normal 0.2-1.0 [facility] Comment on above: Performed By: #### C MP, BNP ####[facility] [address] [address]Dr. Glenys Avni Calcium [Mass/Vol] 8.7 mg/dL Normal 8.5-10.1 [facility] Comment on above: Performed By: #### C MP, BNP ####[facility] [address] [phone]. Glenys Holly Chloride [Moles/Vol] 108 mmol/L Critically high 98-107 [facility] Comment on above: Performed By: #### C MP, BNP ####[facility] [address] [address]Dr. Glenys Holly CO2 [Moles/Vol] 25.2 mmol/L Normal 21.0-32.0 [facility] Comment on above: Performed By: #### C MP, BNP ####[facility] [address] [address]Dr. Glenys Holly Creatinine [Mass/Vol] 0.80 mg/dL Normal 0.55-1.02 [facility] Comment on above: Performed By: #### C MP, BNP ####[facility] [address] [phone]. Glenys Holly EGFR-AF HONDURAN >60 Normal >=60 [facility] Comment on above: Performed By: #### C MP, BNP ####[facility] [address] [phone]. Glenys Avni EGFR-NON AF HONDURAN >60 Normal >=60 [facility] Comment on above: Performed By: #### C MP, BNP ####[facility] [address] [address]Dr. Glenys Avni Globulin (S) [Mass/Vol] 2.7 g/dL Normal [facility] Comment on above: Performed By: #### C MP, BNP ####[facility] [address] [phone]. Glenys Holly Glucose [Mass/Vol] 123 mg/dL Critically high 74-106 [facility] Comment on above: Performed By: #### C MP, BNP ####[facility] [address] [phone]. Glenys Avni Potassium [Moles/Vol] 4.1 mmol/L Normal 3.5-5.1 [facility] Comment on above: Performed By: #### C MP, BNP ####[facility] [address] [phone]. Glenys Holly Protein [Mass/Vol] 5.3 g/dL Critically low 6.4-8.2 [facility] Comment on above: Performed By: #### C MP, BNP ####[facility] [address] [phone]. Glenys Holly Sodium [Moles/Vol] 139 mmol/L Normal 136-145 [facility] Comment on above: Performed By: #### C MP, BNP ####[facility] [address] [address]Dr. Glenys Holly Urea nitrogen [Mass/Vol] 22.0 mg/dL Critically high 7.0-18.0 [facility] Comment on above: Performed By: #### C MP, BNP ####[facility] [address] [phone] Holly Urea nitrogen/Creatinine [Mass ratio] 27.5 mg/mg Normal [facility] Comment on above: Performed By: #### C MP, BNP ####[facility] [address] [address]DrRatna Holly T3, TOTAL (TRIIODOTHYRONINE) on 05-06-2022 T3, TOTAL 69 ng/dL Critically low 71-180 [facility] [place] [facility] Comment on above: Performed By: #### M G, CMP, TSH, T7, BNP #### [facility] [address] [address] [address] Glenys Holly TROPONIN, HIGH SENSITIVITYon 05-06-2022 HSTROP 141.0 pg/mL Critically high 4.0-51.3 [facility] Comment on above: Result Comment: CUT- OFF POINTS HAVE BEEN ESTABLISHED BASED ON THE FOURTH UNIVERSAL DEFINITIONS OF MYOCARDIAL INFARCTION. THE UPPER REFERENCE LIMIT (URL) OF TROPONIN, DEFINED THE 99TH PERCENTILE OF cTnI DISTRIBUTION IN A REFERENCE POPULATION, HAS BEEN CONFIRMED THE DECISION THRESHOLD FOR [place] DIAGNOSIS. Performed By: #### M G, CMP, TSH, T7, BNP #### [facility] [address] [address] [address] Glenys Holly AMYLASEon 05-05-2022 Amylase [Catalytic activity/Vol] 26 U/L Normal 25-115 [facility] Comment on above: Performed By: #### M G, CMP, TSH, T7, BNP #### [facility] [address] [address] [address] Glenys Holly BNPon 05-05-2022 Natriuretic peptide B (Bld) [Mass/Vol] 811.0 pg/mL Normal <=1,800.0 [facility] Comment on above: Performed By: #### M G, CMP, TSH, T7, BNP #### [facility] [address] [address] [address] Glenys Holly CARDIAC ADEEL 3-6on 2 CK [Catalytic activity/Vol] 33 U/L Normal 26-192 [facility] Comment on above: Performed By: #### C MREP ####[facility] [address] [phone]. Glenys Holly CK.MB [Mass/Vol] 1.13 ng/mL Normal <=3.60 [facility] Comment on above: Performed By: #### C MREP ####[facility] [address] [address]Dr. Glenys Holly HSTROP 164.3 pg/mL Critically high 4.0-51.3 [facility] Comment on above: Result Comment: CUT- OFF POINTS HAVE BEEN ESTABLISHED BASED ON THE FOURTH UNIVERSAL DEFINITIONS OF MYOCARDIAL INFARCTION. THE UPPER REFERENCE LIMIT (URL) OF TROPONIN, DEFINED THE 99TH PERCENTILE OF cTnI DISTRIBUTION IN A REFERENCE POPULATION, HAS BEEN CONFIRMED THE DECISION THRESHOLD FOR [place] DIAGNOSIS. Performed By: #### C MREP ####[facility] [address] [address]Dr. Glenys Holly CK [Catalytic activity/Vol] 38 U/L Normal 26-192 [facility] Comment on above: Performed By: #### M G, CMP, TSH, T7, BNP #### [facility] [address] [address] [address] Glenys Holly CK.MB [Mass/Vol] 0.91 ng/mL Normal <=3.60 [facility] Comment on above: Performed By: #### M G, CMP, TSH, T7, BNP #### [facility] [address] [address] [address] Glenys Holly HSTROP 178.2 pg/mL Critically high 4.0-51.3 [facility] Comment on above: Result Comment: CUT- OFF POINTS HAVE BEEN ESTABLISHED BASED ON THE FOURTH UNIVERSAL DEFINITIONS OF MYOCARDIAL INFARCTION. THE UPPER REFERENCE LIMIT (URL) OF TROPONIN, DEFINED THE 99TH PERCENTILE OF cTnI DISTRIBUTION IN A REFERENCE POPULATION, HAS BEEN CONFIRMED THE DECISION THRESHOLD FOR [place] DIAGNOSIS. Performed By: #### M G, CMP, TSH, T7, BNP #### [facility] [address] [place] [address] Dr. Glenys Holly CARDIAC ADEEL ADMITon 022 CK [Catalytic activity/Vol] 29 U/L Normal 26-192 [facility] Comment on above: Performed By: #### M G, CMP, TSH, T7, BNP #### [facility] [address] [place] [address] Dr. Glenys Holly CK.MB [Mass/Vol] 0.73 ng/mL Normal <=3.60 [facility] Comment on above: Performed By: #### M G, CMP, TSH, T7, BNP #### [facility] [address] [place] [address] Dr. Glenys Holly HSTROP 191.6 pg/mL Critically high 4.0-51.3 [facility] Comment on above: Result Comment: CUT- OFF POINTS HAVE BEEN ESTABLISHED BASED ON THE FOURTH UNIVERSAL DEFINITIONS OF MYOCARDIAL INFARCTION. THE UPPER REFERENCE LIMIT (URL) OF TROPONIN, DEFINED THE 99TH PERCENTILE OF cTnI DISTRIBUTION IN A REFERENCE POPULATION, HAS BEEN CONFIRMED THE DECISION THRESHOLD FOR [place] DIAGNOSIS. Performed By: #### M G, CMP, TSH, T7, BNP #### [facility] [address] [place] [address] Dr. Glenys Holly NEO 79 ng/mL Normal 9-82 [facility] Comment on above: Performed By: #### M G, CMP, TSH, T7, BNP #### [facility] [address] [place] [address] Dr. Glenys Holly CBC W MANUAL DIFFon 05-05-20 22 ANISOCYTOSIS 1+ Normal [facility] Comment on above: Performed By: #### M G, CMP, TSH, T7, BNP #### [facility] [address] [place] [address] Dr. Glenys Holly ATYPICAL LYMPH # Normal [facility] Comment on above: Performed By: #### M G, CMP, TSH, T7, BNP #### [facility] [address] [address] [address] Glenys Holly ATYPICAL LYMPH % Normal [facility] Comment on above: Performed By: #### M G, CMP, TSH, T7, BNP #### [facility] [address] [address] [address] Glenys Holly BAND # 0.2 103/ul Normal 0.0-0.3 [facility] Comment on above: Performed By: #### M G, CMP, TSH, T7, BNP #### [facility] [address] [address] [address] Glenys Holly BAND % 1 % Normal 0-5 [facility] Comment on above: Performed By: #### M G, CMP, TSH, T7, BNP #### [facility] [address] [place] [address] Dr. Glenys Holly BASOM # 0.00 103/ul Normal 0.00-0.10 [facility] Comment on above: Performed By: #### M G, CMP, TSH, T7, BNP #### [facility] [address] [place] [address] Dr. Glenys Holly BASOM % 0.0 % Critically low 0.2-2.0 [facility] Comment on above: Performed By: #### M G, CMP, TSH, T7, BNP #### [facility] [address] [place] [address] Dr. Glenys Holly BLAST # Normal [facility] Comment on above: Performed By: #### M G, CMP, TSH, T7, BNP #### [facility] [address] [place] [address] Dr. Glenys Holly BLAST % Normal [facility] Comment on above: Performed By: #### M G, CMP, TSH, T7, BNP #### [facility] [address] [place] [address] Dr. Glenys Holly CORRECTED WBC Normal 4.0-11.0 [facility] Comment on above: Performed By: #### M G, CMP, TSH, T7, BNP #### [facility] [address] [address] [address] Glenys Holly EOS # 0.00 103/ul Normal 0.00-0.70 [facility] Comment on above: Performed By: #### M G, CMP, TSH, T7, BNP #### [facility] [address] [place] [address] Dr. Glenys Holly EOS% 0.0 % Critically low 0.9-7.0 [facility] Comment on above: Performed By: #### M G, CMP, TSH, T7, BNP #### [facility] [address] [place] [address] Dr. Glenys Holly HCT 41.5 % Normal 36.0-48.0 [facility] Comment on above: Performed By: #### M G, CMP, TSH, T7, BNP #### [facility] [address] [place] [address] Dr. Glenys Holly HGB 14.2 g/dl Normal 12.0-16.0 [facility] Comment on above: Performed By: #### M G, CMP, TSH, T7, BNP #### [facility] [address] [place] [address] Dr. Glenys Holly LYMPHM # 0.96 103/ul Critically low 1.20-3.80 [facility] Comment on above: Performed By: #### M G, CMP, TSH, T7, BNP #### [facility] [address] [place] [address] Dr. Glenys Holly LYMPHM% 6.0 % Critically low 20.5-60.0 [facility] Comment on above: Performed By: #### M G, CMP, TSH, T7, BNP #### [facility] [address] [place] [address] Dr. Glenys Holly MCH 31.0 pg Normal 26.7-34.0 [facility] Comment on above: Performed By: #### M G, CMP, TSH, T7, BNP #### [facility] [address] [place] [address] Dr. Glenys Holly MCHC 34.2 g/dl Normal 29.9-35.2 [facility] Comment on above: Performed By: #### M G, CMP, TSH, T7, BNP #### [facility] [address] [address] [address] Glenys Holly MCV 90.6 fL Normal 81.0-99.0 [facility] Comment on above: Performed By: #### M G, CMP, TSH, T7, BNP #### [facility] [address] [address] [address] Glenys Holly METAMYELOCYTE # Normal [facility] Comment on above: Performed By: #### M G, CMP, TSH, T7, BNP #### [facility] [address] [address] [address] Glenys Holly METAMYELOCYTE % Normal [facility] Comment on above: Performed By: #### M G, CMP, TSH, T7, BNP #### [facility] [address] [place] [address] Dr. Glenys Holly MONOM# 2.56 103/ul Critically high 0.30-0.80 [facility] Comment on above: Performed By: #### M G, CMP, TSH, T7, BNP #### [facility] [address] [address] [address] Glenys Holly MONOM% 16.0 % Critically high 1.7-12.0 [facility] Comment on above: Performed By: #### M G, CMP, TSH, T7, BNP #### [facility] [address] [address] [address] Glenys Holly MPV 11.1 fL Normal 9.5-13.5 [facility] Comment on above: Performed By: #### M G, CMP, TSH, T7, BNP #### [facility] [address] [address] [address] Glenys Holly MYELOCYTE # Normal [facility] Comment on above: Performed By: #### M G, CMP, TSH, T7, BNP #### [facility] [address] [address] [address] Glenys Holly MYELOCYTE % Normal [facility] Comment on above: Performed By: #### M G, CMP, TSH, T7, BNP #### [facility] [address] [address] [address] Glenys Holly NR Normal [facility] Comment on above: Performed By: #### M G, CMP, TSH, T7, BNP #### [facility] [address] [address] [address] Glenys Holly PLT 352 103/ul Normal 150-450 [facility] Comment on above: Performed By: #### M G, CMP, TSH, T7, BNP #### [facility] [address] [address] [address] Glenys Holly RBC 4.58 106/ul Normal 4.20-5.40 [facility] Comment on above: Performed By: #### M G, CMP, TSH, T7, BNP #### [facility] [address] [address] [address] Glenys Holly RDW 15.2 % Critically high 11.0-15.0 [facility] Comment on above: Performed By: #### M G, CMP, TSH, T7, BNP #### [facility] [address] [address] [address] Glensy Holly SEG # 12.32 103/ul Critically high 1.40-6.50 [facility] Comment on above: Performed By: #### M G, CMP, TSH, T7, BNP #### [facility] [address] [address] [address] Glenys Holly SEG % 77.0 % Critically high 43.0-75.0 [facility] Comment on above: Performed By: #### M G, CMP, TSH, T7, BNP #### [facility] [address] [address] [address] Glenys Holly WBC 16.0 103/ul Critically high 4.0-11.0 [facility] Comment on above: Performed By: #### M G, CMP, TSH, T7, BNP #### [facility] [address] [address] [address] Glenys Holly CTA CHEST WO W CONon 11-25-2 022 CTA CHEST WO W CON EXAMINATION: CTA KAYLENE ST WO W CON HISTORY: Cough, fever, chills, bodyaches, headache, and nausea for 2 days. Shortness of breath for one day. COMPARISON: Chest x-ray performed earlier the same day. TECHNIQUE: CT angiography of the pulmonary arteries following the administration of intravenous contrast. Coronal and sagittal MIP (maximum intensity projection) images were performed. Dose reduction techniques were achieved by using automated exposure control and/or adjustment of mA and/or kV according to patient size and/or use of iterative reconstruction technique. FINDINGS: The timing of bolus is adequate. There is some breathing motion artifact. No filling defects are seen to suggest pulmonary embolism in the more central vessels. Some of the smaller more peripheral vessels cannot be reliably evaluated. The heart is normal in size. There is borderline distention of the central pulmonary arteries. Scattered calcified plaque is seen in the aorta and coronary arteries. The thoracic aorta near the diaphragmatic hiatus measures 3.2 cm in diameter The lungs are hyperinflated and show moderate to severe changes of centrilobular emphysema. No discrete masses or nodules are seen in the lungs. No endobronchial or endotracheal lesions are seen. Limited evaluation of the upper abdomen is unremarkable. No suspicious or destructive bone lesions are seen. IMPRESSION: Negative for pulmonary embolism, although some of the smaller more peripheral vessels cannot be reliably evaluated. No acute process in the lungs. There are changes of COPD and centrilobular emphysema, with associated borderline distention of the central pulmonary arteries. 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 Electronically authenticated by: YULISSA TALBERT Date: 2022-05-05 09:32 Normal [facility] CULTURE BLOODon 05-05-2022 Microscopic examination of blood, culture Culture Observations: NO GROWTH AT 5 DAYS. Normal [facility] Comment on above: Performed By: #### B LDCX2 ####[facility] [address] [id number] Holly Microscopic examination of blood, culture Culture Observations: NO GROWTH AT 5 DAYS. Normal [facility] Comment on above: Performed By: #### B LDCX1 ####[facility] [address] [place], [place] [address]ZdRatna Holly CULTURE URINEon 05-05-2022 CULTURE URINE Culture Observations : LIGHT GROWTH OF MIXED GENITAL NIDA. NO POTENTIAL PATHOGENS SEEN. Normal [facility] Comment on above: Performed By: #### U RCX ####[facility] [address] [place], [place] [address]IuDr. Glenys Holly Covid-19 PCR (CVDTB)on 04-12 SARS-CoV-2 (COVID-19) RNA KINZA+probe Ql (Unsp spec) Not detected Normal NOT DETECTED [facility] Comment on above: Result Comment: When diagnostic testing is negative, the possibility of a false negative should be considered in the context of a patient's recent exposures and the presence of clinical signs and symptoms consistent with SARS-CoV-2. This test is not yet approved or cleared by the [place] FDA. When there are no FDA-approved or cleared tests available, and other criteria are met, FDA can make tests available under an emergency access mechanism called an Emergency Use Authorization (EUA). The EUA for this test is supported by the [place] of Health and Human Service's declaration that circumstances exist to justify the emergency use of in vitro diagnostics for the detection and/or diagnosis of the virus that causes COVID-19. This EUA will remain in effect for the duration of the COVID-19 declaration justifying emergency of IVDs, unless it is terminated or revoked by the FDA (after which the test may no longer be used). Performed By: #### C VDTB #### [facility] [address] [place], [place] [address] Dr. Glenys Holly ECHOCARDIO M/2D COMPLETEon 1 07-05-2021 ECHOCARDIO M/2D COMPLETE Patient: JUDITH LAND Exam Date: 05/05/2022 : 1945 Gender:F Ordering : DR RODRICK LEARY . Admission #: [id number] Family : Order #: [id number] CLICK HERE TO VIEW EXAM ECHOCARDIOGRAM REPORT PROCEDURE: CARDIO PULMONARY ECHOCARDIO M/2D COMP INDICATIONS: Cough, Tachycardia, Dyspnea COMPARISON: None. DESCRIPTION: COMPLETE ECHOCARDIOGRAM Real-time transthoracic echocardiography with 2D, M-mode, spectral and color flow Doppler performed. QUALITY: Technical quality was good. LEFT VENTRICLE: Normal chamber size. Normal left ventricular wall thickness. LV EF: Global left ventricular systolic function is normal. Calculated left ventricular ejection fraction is 69%. DIASTOLIC: Diastolic function is indeterminate. ATRIAL SEPTUM: Inadequately visualized. LEFT ATRIUM: Normal chamber size. RIGHT ATRIUM: Normal chamber size. RIGHT VENTRICLE: Normal chamber size. Normal right ventricular systolic function. TRICUSPID VALVE: Normal mobility and thickness. Mild regurgitation. Mild pulmonary hypertension. RVSP 36mmHg MITRAL VALVE: Normal mobility and thickness. No mitral valve prolapse. No evidence of mitral valve stenosis. There is no mitral annular calcification. Trivial mitral regurgitation. AORTIC VALVE: Normal trileaflet appearance. Mildly calcified aortic valve. Mildly diminished mobility. Mildly elevated velocities across aortic valve with no significant stenosis. No aortic regurgitation. AORTIC ROOT: Normal diameter and appearance. PULMONIC VALVE: Normal thickness and mobility. No stenosis. Trivial regurgitation. PERICARDIUM: No evidence of pericardial effusion. IVC: Collapses with inspirations. Normal size. CONCLUSION: Global left ventricular systolic function is normal; visually estimated ejection fraction is 60 to 65%. No significant wall motion abnormalities. Diastolic function is indeterminate. The right ventricle is normal in size and systolic function. Mild tricuspid regurgitation. Mildly elevated right-sided pressures. Adult Echocardiography Procedure Report Left Ventricle LVEDD (3.7 - 5.6 cm): 4.42 cm LVESD (2.2 - 4.0 cm): 2.90 cm LVIVS thickness (0.6 - 1.2 cm): 0.93 cm LVPW thickness (0.5 - 1.0 cm): 0.96 cm e': 0.08 m/s E - e': 6.94 LVOT Max Gradient: 3.29 mm[Hg], 3.13 mm[Hg] Peak Velocity (LVOT): 0.91 m/s, 0.88 m/s Mean Velocity (LVOT): 0.65 m/s, 0.65 m/s LVOT Diameter 2.31 cm Left Ventricular Ejection Fraction: 63.69 %, 63.69 % Left Atrium LA Volume Index (2D A2C): 53.65 ml, 53.65 ml Left Atrium Systolic Dimension: 2.87 cm Mitral Valve MV E to A Ratio: 0.79, 0.73 Mitral Valve A-Wave Peak Velocity: 0.72 m/s, 0.83 m/s Mitral Valve E-Wave Peak Velocity: 0.57 m/s, 0.61 m/s Right Ventricle RV Internal Diastolic Dimension: 3.07 cm Aorta AO Root Diam: 3.15 cm Aortic Valve AoV Area (Peak Noe): 2.01 cm2, 2.02 cm2, 2.02 cm2 AoV Area (VTI): 2.18 cm2, 2.37 cm2, 2.08 cm2 Peak Velocity(Antegrade Flow): 1.89 m/s, 1.84 m/s, 1.89 m/s Peak Gradient(Antegrade Flow): 14.29 mm[Hg], 13.55 mm[Hg], 14.29 mm[Hg] Mean Velocity(Antegrade Flow): 1.28 m/s, 1.25 m/s, 1.31 m/s Mean Gradient(Antegrade Flow): 7.49 mm[Hg], 7.27 mm[Hg], 7.78 mm[Hg] Velocity Time Integral: 37.03 cm, 35.73 cm, 38.75 cm Tricuspid Valve Peak Velocity (Regurgitant Flow): 2.86 m/s, 2.80 m/s, 2.77 m/s Peak Velocity: 0.59 m/s Pulmonic Valve Mean Gradient: 2.94 mm[Hg], 3.00 mm[Hg], 3.01 mm[Hg], 3.20 mm[Hg] Mean Velocity: 0.81 m/s, 0.81 m/s, 0.81 m/s, 0.84 m/s Peak Velocity: 1.11 m/s, 1.15 m/s, 1.15 m/s, 1.20 m/s Peak Gradient: 4.96 mm[Hg], 5.31 mm[Hg], 5.31 mm[Hg], 5.78 mm[Hg] Right Atrium Right Atrium Systolic Pressure: 22.75 ml, 22.75 ml Dictated by: Trixie Neal M.D. on 05/10/2022 at 13:09 Approved by: Trixie Neal M.D. on 05/10/2022 at 13:12 Normal [facility] INFLUENZA A AND B AGon 05-05 INFLUANEGH SEE BELOW Normal [facility] Comment on above: Result Comment: Nega tive for Flu A protein angiten. Infection due to Flu A cannot be ruled out. Flu A angiten in the sample may be below the detection limit of the test. Performed By: #### M G, CMP, TSH, T7, BNP #### [facility] [address] [place] [address] [address] Glenys Holly [facility] SEE BELOW Normal [facility] Comment on above: Result Comment: Nega tive for Flu B protein antigen. Infection due to Flu B cannot be ruled out. Flu B antigen in the sample may be below the detection limit of the test. Performed By: #### M G, CMP, TSH, T7, BNP #### [facility] [address] [place] [address] Dr. Glenys Holly INFLUENZA A AG Negative Normal NEGATIVE SEE COMMENT [facility] Comment on above: Performed By: #### M G, CMP, TSH, T7, BNP #### [facility] [address] [place] [address] Dr. Glenys Holly INFLUENZA B AG Negative Normal NEGATIVE SEE COMMENT [facility] Comment on above: Performed By: #### M G, CMP, TSH, T7, BNP #### [facility] [address] [place] [address] Dr. Glenys Holly INTERNAL CONTROLS Within Normal Limits Normal Wi thin Normal Limits [facility] Comment on above: Performed By: #### M G, CMP, TSH, T7, BNP #### [facility] [address] [place] [address] Dr. Glenys Holly LACTATE/LACTIC ACIDon 2021 Lactate [Moles/Vol] 5.2 mmol/L Critically high 0.4-1.9 [facility] Comment on above: Performed By: #### M G, CMP, TSH, T7, BNP #### [facility] [address] [place] [address] Dr. Glenys Holly Lactate [Moles/Vol] 4.8 mmol/L Critically high 0.4-1.9 [facility] Comment on above: Performed By: #### M G, CMP, TSH, T7, BNP #### [facility] [address] [place] [address] Dr. Glenys Holly LIPASEon 05-05-2022 Lipase [Catalytic activity/Vol] 64.0 U/L Critically low 73.0-393.0 [facility] Comment on above: Performed By: #### M G, CMP, TSH, T7, BNP #### [facility] [address] [place] [address] Dr. Glenys Holly PROF CHEM 8 (BAS METB)on Anion gap [Moles/Vol] 12.6 mmol/L Normal [facility] Comment on above: Performed By: #### M G, CMP, TSH, T7, BNP #### [facility] [address] [place] [address] Dr. Glenys Holly Calcium [Mass/Vol] 9.6 mg/dL Normal 8.5-10.1 [facility] Comment on above: Performed By: #### M G, CMP, TSH, T7, BNP #### [facility] [address] [place] [address] Dr. Glenys Holly Chloride [Moles/Vol] 102 mmol/L Normal 98-107 [facility] Comment on above: Performed By: #### M G, CMP, TSH, T7, BNP #### [facility] [address] [place] [address] Dr. Glenys Holly CO2 [Moles/Vol] 26.3 mmol/L Normal 21.0-32.0 [facility] Comment on above: Performed By: #### M G, CMP, TSH, T7, BNP #### [facility] [address] [place] [address] [address] Glenys Holly Creatinine [Mass/Vol] 1.00 mg/dL Normal 0.55-1.02 [facility] Comment on above: Performed By: #### M G, CMP, TSH, T7, BNP #### [facility] [address] [place] [address] [address] Glenys Holly EGFR-AF HONDURAN >60 Normal >=60 [facility] Comment on above: Performed By: #### M G, CMP, TSH, T7, BNP #### [facility] [address] [place] [address] [address] Glenys Holly EGFR-NON AF HONDURAN 54 mL/min/1.73m2 Critically low >=60 [facility] Comment on above: Performed By: #### M G, CMP, TSH, T7, BNP #### [facility] [address] [place] [address] Dr. Glenys Holly Glucose [Mass/Vol] 128 mg/dL Critically high 74-106 [facility] Comment on above: Performed By: #### M G, CMP, TSH, T7, BNP #### [facility] [address] [place] [address] Dr. Glenys Holly Potassium [Moles/Vol] 2.9 mmol/L Critically low 3.5-5.1 [facility] Comment on above: Performed By: #### M G, CMP, TSH, T7, BNP #### [facility] [address] [place] [address] Dr. Glenys Holly Sodium [Moles/Vol] 138 mmol/L Normal 136-145 [facility] Comment on above: Performed By: #### M G, CMP, TSH, T7, BNP #### [facility] [address] [place] [address] Dr. Glenys Holly Urea nitrogen [Mass/Vol] 20.0 mg/dL Critically high 7.0-18.0 [facility] Comment on above: Performed By: #### M G, CMP, TSH, T7, BNP #### [facility] [address] [place] [address] Dr. Glenys Holly Urea nitrogen/Creatinine [Mass ratio] 20.0 mg/mg Normal [facility] Comment on above: Performed By: #### M G, CMP, TSH, T7, BNP #### [facility] [address] [place] [address] Dr. Glenys Holly T4on 05-05-2022 T4 [Mass/Vol] 7.40 ug/dL Normal 4.80-13.90 [facility] Comment on above: Performed By: #### M G, CMP, TSH, T7, BNP #### [facility] [address] [place] [address] Dr. Glenys Holly TSHon 05-05-2022 TSH 0.198 uIU/mL Critically low 0.358-3.740 [facility] [place] [facility] Comment on above: Performed By: #### M G, CMP, TSH, T7, BNP #### [facility] [address] [place] [address] Dr. Glenys Holly UA RANDOM W/MICROSCOPICon BACTERIA NONE SEEN Normal NONE SEEN [facility] Comment on above: Performed By: #### M G, CMP, TSH, T7, BNP #### [facility] [address] [place] [address] [address] Glenys Holly Bilirubin Ql (U) Negative Normal NEGATIVE [facility] Comment on above: Performed By: #### M G, CMP, TSH, T7, BNP #### [facility] [address] [place] [address] Dr. Glenys Holly CAST NONE SEEN Normal NONE SEEN [facility] Comment on above: Performed By: #### M G, CMP, TSH, T7, BNP #### [facility] [address] [place] [address] Dr. Glenys Holly Clarity (U) SL CLOUDY Abnormal CLEAR [facility] Comment on above: Performed By: #### M G, CMP, TSH, T7, BNP #### [facility] [address] [place] [address] Dr. Glenys Holly Color (U) LT. YELLOW Normal YELLOW [facility] Comment on above: Performed By: #### M G, CMP, TSH, T7, BNP #### [facility] [address] [place] [address] Dr. Glenys Holyl Crystals LM Nom (Urine sed) NONE SEEN Normal NONE SEEN [facility] Comment on above: Performed By: #### M G, CMP, TSH, T7, BNP #### [facility] [address] [place] [address] [address] Glenys Holly Epithelial cells LM Ql (Urine sed) FEW Abnormal NONE SEEN /RARE [facility] Comment on above: Performed By: #### M G, CMP, TSH, T7, BNP #### [facility] [address] [place] [address] Dr. Glenys Holly Glucose Ql (U) Negative Normal NEGATIVE [facility] Comment on above: Performed By: #### M G, CMP, TSH, T7, BNP #### [facility] [address] [place] [address] [address] Glenys Holly Hemoglobin Ql (U) MODERATE Abnormal NEGATIVE [facility] [place] [facility] Comment on above: Performed By: #### M G, CMP, TSH, T7, BNP #### [facility] [address] [place] [address] [address] Glenys Holly Ketones Ql (U) Negative Normal NEGATIVE [facility] Comment on above: Performed By: #### M G, CMP, TSH, T7, BNP #### [facility] [address] [place] [address] [address] Glenys Holly LEUKOCYTES Negative Normal NEGATIVE [facility] Comment on above: Performed By: #### M G, CMP, TSH, T7, BNP #### [facility] [address] [place] [address] Dr. Glenys Holly MUCOUS NONE SEEN Normal NONE SEEN [facility] Comment on above: Performed By: #### M G, CMP, TSH, T7, BNP #### [facility] [address] [place] [address] [address] Glenys Holly Nitrite Ql (U) Negative Normal NEGATIVE [facility] [place] [facility] Comment on above: Performed By: #### M G, CMP, TSH, T7, BNP #### [facility] [address] [place] [address] Dr. Glenys Holly pH (U) 6.0 [pH] Normal 5-9 [facility] Comment on above: Performed By: #### M G, CMP, TSH, T7, BNP #### [facility] [address] [place] [address] [address] Glenys Holly RBC 2-5 Abnormal 0-2 [facility] Comment on above: Performed By: #### M G, CMP, TSH, T7, BNP #### [facility] [address] [place] [address] [address] Glenys Holly SPEC GRAVITY 1.010 Normal 1.005-<=1.0 25 [facility] Comment on above: Performed By: #### M G, CMP, TSH, T7, BNP #### [facility] [address] [place], [place] [address] Dr. Glenys Holly UA PROTEIN TRACE Normal NEGATIVE/ TRACE [facility] Comment on above: Performed By: #### M G, CMP, TSH, T7, BNP #### [facility] [address] [place], [place] [address] Dr. Glenys Holly Urobilinogen Qn (U) 0.2 {Phoebe'U}/dL Normal 0.2 - 1. 0 [facility] Comment on above: Performed By: #### M G, CMP, TSH, T7, BNP #### [facility] [address] [place] [address] [address] Glenys Holly WBC NONE SEEN Normal NONE SEEN [facility] Comment on above: Performed By: #### M G, CMP, TSH, T7, BNP #### [facility] [address] [place] [address] [address] Glenys Holly XR CHEST 1 Von 05-05-2022 XR CHEST 1 V EXAM: XR CHEST 1 V HISTORY: . COUGH . COMPARISON: 03/29/2022 TECHNIQUE: Single view of the chest. FINDINGS: Heart and vascularity are unremarkable. There is hyperexpansion of lungs. There is flattening in hemidiaphragms. Lungs are free of focal infiltrates. Nipple shadows overlie the lower lung calderon. Early atherosclerotic changes of the thoracic aorta are noted. IMPRESSION: 1. Findings suggestive of COPD. 2. No acute heart or lung disease identified. Electronically authenticated by: SUPA LOZANO Date: 2022-05-05 07:41 Normal [facility] CULTURE URINEon 03-30-2022 CULTURE URINE Culture Observations : GREATER THAN 4 ORGANISMS PRESENT. PLEASE RESUBMIT CLEAN CATCH MID-STREAM URINE IF CLINICALLY INDICATED. Normal [facility] Comment on above: Performed By: #### U RCX ####[facility] [address] [place] [id number]. Glenys Holly CBC W MANUAL DIFFon 03-29-20 22 ATYPICAL LYMPH # Normal [facility] Comment on above: Performed By: #### M G, CMP, TSH, T7, BNP #### [facility] [address] [place] [address] Dr. Glenys Holly ATYPICAL LYMPH % Normal [facility] Comment on above: Performed By: #### M G, CMP, TSH, T7, BNP #### [facility] [address] [place] [address] [address] Glenys Holyl BAND # Normal 0.0-0.3 [facility] Comment on above: Performed By: #### M G, CMP, TSH, T7, BNP #### [facility] [address] [place] [address] [address] Glenys Holly BAND % Normal 0-5 [facility] Comment on above: Performed By: #### M G, CMP, TSH, T7, BNP #### [facility] [address] [place] [address] Dr. Glenys Holly BASOM # 0.20 103/ul Critically high 0.00-0.10 [facility] Comment on above: Performed By: #### M G, CMP, TSH, T7, BNP #### [facility] [address] [place] [address] Dr. Glenys Holly BASOM % 1.0 % Normal 0.2-2.0 [facility] Comment on above: Performed By: #### M G, CMP, TSH, T7, BNP #### [facility] [address] [place] [address] Dr. Glenys Holly BLAST # Normal [facility] Comment on above: Performed By: #### M G, CMP, TSH, T7, BNP #### [facility] [address] [place] [address] Dr. Glenys Holly BLAST % Normal [facility] Comment on above: Performed By: #### M G, CMP, TSH, T7, BNP #### [facility] [address] [place] [address] Dr. Glenys Holly CORRECTED WBC Normal 4.0-11.0 [facility] Comment on above: Performed By: #### M G, CMP, TSH, T7, BNP #### [facility] [address] [place] [address] Dr. Glenys Holly EOS # 0.00 103/ul Normal 0.00-0.70 [facility] Comment on above: Performed By: #### M G, CMP, TSH, T7, BNP #### [facility] [address] [place] [address] Dr. Glenys Holly EOS% 0.0 % Critically low 0.9-7.0 [facility] [place] [facility] Comment on above: Performed By: #### M G, CMP, TSH, T7, BNP #### [facility] [address] [place] [address] Dr. Glenys Holly HCT 45.0 % Normal 36.0-48.0 [facility] Comment on above: Performed By: #### M G, CMP, TSH, T7, BNP #### [facility] [address] [place] [address] Dr. Gleyns Holly HGB 15.2 g/dl Normal 12.0-16.0 [facility] Comment on above: Performed By: #### M G, CMP, TSH, T7, BNP #### [facility] [address] [place] [address] Dr. Glenys Holly LYMPHM # 2.80 103/ul Normal 1.20-3.80 [facility] Comment on above: Performed By: #### M G, CMP, TSH, T7, BNP #### [facility] [address] [place] [address] Dr. Glenys Holly LYMPHM% 14.0 % Critically low 20.5-60.0 [facility] Comment on above: Performed By: #### M G, CMP, TSH, T7, BNP #### [facility] [address] [place] [address] Dr. Glenys Holly MCH 30.6 pg Normal 26.7-34.0 [facility] Comment on above: Performed By: #### M G, CMP, TSH, T7, BNP #### [facility] [address] [place] [address] Dr. Glenys Holly MCHC 33.8 g/dl Normal 29.9-35.2 [facility] Comment on above: Performed By: #### M G, CMP, TSH, T7, BNP #### [facility] [address] [place] [address] [address] Glenys Holly MCV 90.7 fL Normal 81.0-99.0 [facility] Comment on above: Performed By: #### M G, CMP, TSH, T7, BNP #### [facility] [address] [place] [address] [address] Glenys Holly METAMYELOCYTE # Normal [facility] Comment on above: Performed By: #### M G, CMP, TSH, T7, BNP #### [facility] [address] [place] [address] [address] Glenys Holly METAMYELOCYTE % Normal [facility] Comment on above: Performed By: #### M G, CMP, TSH, T7, BNP #### [facility] [address] [place] [address] Dr. Glenys Holly MONOM# 2.40 103/ul Critically high 0.30-0.80 [facility] Comment on above: Performed By: #### M G, CMP, TSH, T7, BNP #### [facility] [address] [place] [address] [address] Glenys Holly MONOM% 12.0 % Normal 1.7-12.0 [facility] Comment on above: Performed By: #### M G, CMP, TSH, T7, BNP #### [facility] [address] [address] [address] Glenys Holly MPV 11.5 fL Normal 9.5-13.5 [facility] Comment on above: Performed By: #### M G, CMP, TSH, T7, BNP #### [facility] [address] [address] [address] Glenys Holly MYELOCYTE # Normal [facility] Comment on above: Performed By: #### M G, CMP, TSH, T7, BNP #### [facility] [address] [address] [address] Glenys Holly MYELOCYTE % Normal [facility] Comment on above: Performed By: #### M G, CMP, TSH, T7, BNP #### [facility] [address] [place] [address] [address] Glenys Holly NRBC Normal [facility] Comment on above: Performed By: #### M G, CMP, TSH, T7, BNP #### [facility] [address] [place] [address] [address] Glenys Holly PLT 323 103/ul Normal 150-450 [facility] Comment on above: Performed By: #### M G, CMP, TSH, T7, BNP #### [facility] [address] [address] [address] Glenys Holly RBC 4.96 106/ul Normal 4.20-5.40 [facility] Comment on above: Performed By: #### M G, CMP, TSH, T7, BNP #### [facility] [address] [place] [address] Dr. Glenys Holly RDW 14.4 % Normal 11.0-15.0 [facility] Comment on above: Performed By: #### M G, CMP, TSH, T7, BNP #### [facility] [address] [place] [address] Dr. Glenys Holly SEG # 14.60 103/ul Critically high 1.40-6.50 [facility] Comment on above: Performed By: #### M G, CMP, TSH, T7, BNP #### [facility] [address] [place] [address] Dr. Glenys Holly SEG % 73.0 % Normal 43.0-75.0 [facility] Comment on above: Performed By: #### M G, CMP, TSH, T7, BNP #### [facility] [address] [place] [address] Dr. Glenys Holly WBC 20.0 103/ul Critically high 4.0-11.0 [facility] Comment on above: Performed By: #### M G, CMP, TSH, T7, BNP #### [facility] [address] [place] [address] ABD/PELV W CONon 03-29-20 CT ABD/PELV W CON EXAMINATION: CT ABD/ PELV W CON HISTORY: GENERALIZED ABDOMINAL PAIN , acute COMPARISON: CT abdomen pelvis 02/01/2020 TECHNIQUE: Axial, Coronal, and Sagittal images were obtained without and/or with IV contrast as indicated by examination type. Dose reduction techniques were achieved by using automated exposure control and/or adjustment of mA and/or kV according to patient size and/or use of iterative reconstruction technique. FINDINGS: LUNG BASES: Mild emphysematous changes. LIVER: No enlargement, atrophy, suspicious density, or significant focal lesion. BILIARY: No dilatation or calcification. PANCREAS: No lesion, fluid collection, or abnormal duct dilatation. SPLEEN: Splenectomy. ADRENALS: No mass or enlargement. KIDNEYS: Nonobstructing stones within both kidneys. Grossly stable benign-appearing cysts bilaterally. Unremarkable ureters. BOWEL/MESENTERY: No visible mass, obstruction, or bowel wall thickening. Moderate amount of stool throughout colon. AORTA/VASCULAR: No aneurysm or dissection. RETROPERITONEUM: No mass or adenopathy. LYMPH NODES: No adenopathy. URINARY BLADDER: No visible focal wall thickening, lesion, or calculus. PELVIC ORGANS: Hysterectomy. ABDOMINAL WALL: No mass or hernia. BONES: Multilevel marked degenerative disc disease of lumbar spine; mild scoliotic curvature. OTHER: Negative. IMPRESSION: 1. Bilateral nonobstructing nephrolithiasis. 2. No bowel obstruction, ileus, or inflammatory changes. Moderate stool burden. 3. Marked degenerative disc disease of lumbar spine. 4. No specific findings to account for patient's symptoms. Electronically authenticated by: RAMIRO EVANS Date: 2022-03-29 11:27 Normal [facility] ER URINE PROFILEon 2 Bilirubin Ql (U) Negative Normal NEGATIVE [facility] Comment on above: Performed By: #### M G, CMP, TSH, T7, BNP #### [facility] [address] [address] [address] Glenys Holly Clarity (U) CLEAR Normal CLEAR [facility] Comment on above: Performed By: #### M G, CMP, TSH, T7, BNP #### [facility] [address] [address] [address] Glenys Holly Color (U) LT. YELLOW Normal YELLOW [facility] Comment on above: Performed By: #### M G, CMP, TSH, T7, BNP #### [facility] [address] [address] [address] Glenys WILLIAMSON A micrscopic examina tion will be performed if indicated. Normal [facility] Comment on above: Performed By: #### M G, CMP, TSH, T7, BNP #### [facility] [address] [place] [address] Dr. Glenys Holly Glucose Ql (U) Negative Normal NEGATIVE [facility] Comment on above: Performed By: #### M G, CMP, TSH, T7, BNP #### [facility] [address] [place] [address] Dr. Glenys Holly Hemoglobin Ql (U) MODERATE Abnormal NEGATIVE [facility] Comment on above: Performed By: #### M G, CMP, TSH, T7, BNP #### [facility] [address] [place] [address] Dr. Glenys Holly Ketones Ql (U) 15 mg/dl Abnormal NEGATIVE [facility] Comment on above: Performed By: #### M G, CMP, TSH, T7, BNP #### [facility] [address] [place] [address] Dr. Glenys Holly LEUKOCYTES LARGE Abnormal NEGATIVE [facility] Comment on above: Performed By: #### M G, CMP, TSH, T7, BNP #### [facility] [address] [place] [address] Dr. Glenys Holly Nitrite Ql (U) Negative Normal NEGATIVE [facility] Comment on above: Performed By: #### M G, CMP, TSH, T7, BNP #### [facility] [address] [address] [address] Glenys Holly pH (U) 6.5 [pH] Normal 5-9 [facility] Comment on above: Performed By: #### M G, CMP, TSH, T7, BNP #### [facility] [address] [place] [address] Dr. Glenys Holly SPEC GRAVITY 1.015 Normal 1.005-<=1.0 25 [facility] Comment on above: Performed By: #### M G, CMP, TSH, T7, BNP #### [facility] [address] [address] [address] Glenys Holly UA PROTEIN TRACE Normal NEGATIVE/ TRACE [facility] Comment on above: Performed By: #### M G, CMP, TSH, T7, BNP #### [facility] [address] [place] [address] Dr. Glenys Holly UR MICRO IND INDICATED Normal [facility] Comment on above: Performed By: #### M G, CMP, TSH, T7, BNP #### [facility] [address] [place] [address] Dr. Glenys Holly Urobilinogen Qn (U) 0.2 {Phoebe'U}/dL Normal 0.2 - 1. 0 [facility] Comment on above: Performed By: #### M G, CMP, TSH, T7, BNP #### [facility] [address] [place] [address] Dr. Glenys Holly LIPASEon 03-29-2022 Lipase [Catalytic activity/Vol] 62.0 U/L Critically low 73.0-393.0 [facility] Comment on above: Performed By: #### M G, CMP, TSH, T7, BNP #### [facility] [address] [place] [address] Dr. Glenys Holly PROF 14(COMP METB)on 022 Albumin [Mass/Vol] 3.7 g/dL Normal 3.4-5.0 [facility] Comment on above: Performed By: #### M G, CMP, TSH, T7, BNP #### [facility] [address] [place] [address] Dr. Glenys Holly Albumin/Globulin [Mass ratio] 1.2 {ratio} Normal [facility] Comment on above: Performed By: #### M G, CMP, TSH, T7, BNP #### [facility] [address] [place] [address] Dr. Glenys Holly ALP [Catalytic activity/Vol] 106 U/L Normal 46-116 [facility] Comment on above: Performed By: #### M G, CMP, TSH, T7, BNP #### [facility] [address] [place] [address] Dr. Glenys Holly ALT [Catalytic activity/Vol] 17 U/L Normal 14-59 [facility] Comment on above: Performed By: #### M G, CMP, TSH, T7, BNP #### [facility] [address] [address] [address] Glenys Holly Anion gap [Moles/Vol] 11.8 mmol/L Normal [facility] Comment on above: Performed By: #### M G, CMP, TSH, T7, BNP #### [facility] [address] [place] [address] Dr. Glenys Holly AST [Catalytic activity/Vol] 19 U/L Normal 15-37 [facility] Comment on above: Performed By: #### M G, CMP, TSH, T7, BNP #### [facility] [address] [place] [address] Dr. Glenys Holly Bilirubin [Mass/Vol] 0.8 mg/dL Normal 0.2-1.0 [facility] Comment on above: Performed By: #### M G, CMP, TSH, T7, BNP #### [facility] [address] [place] [address] Dr. Glenys Holly Calcium [Mass/Vol] 9.8 mg/dL Normal 8.5-10.1 [facility] Comment on above: Performed By: #### M G, CMP, TSH, T7, BNP #### [facility] [address] [place] [address] Dr. Glenys Holly Chloride [Moles/Vol] 101 mmol/L Normal 98-107 [facility] Comment on above: Performed By: #### M G, CMP, TSH, T7, BNP #### [facility] [address] [place] [address] Dr. Glenys Holly CO2 [Moles/Vol] 26.2 mmol/L Normal 21.0-32.0 [facility] Comment on above: Performed By: #### M G, CMP, TSH, T7, BNP #### [facility] [address] [place] [address] Dr. Glenys Holly Creatinine [Mass/Vol] 0.76 mg/dL Normal 0.55-1.02 [facility] Comment on above: Performed By: #### M G, CMP, TSH, T7, BNP #### [facility] [address] [place] [address] Dr. Glenys Holly EGFR-AF HONDURAN >60 Normal >=60 [facility] Comment on above: Performed By: #### M G, CMP, TSH, T7, BNP #### [facility] [address] [place] [address] Dr. Glenys Holly EGFR-NON AF HONDURAN >60 Normal >=60 [facility] Comment on above: Performed By: #### M G, CMP, TSH, T7, BNP #### [facility] [address] [place] [address] Dr. Glenys Holly Globulin (S) [Mass/Vol] 3.2 g/dL Normal [facility] Comment on above: Performed By: #### M G, CMP, TSH, T7, BNP #### [facility] [address] [place] [address] Dr. Glenys Holly Glucose [Mass/Vol] 103 mg/dL Normal 74-106 [facility] Comment on above: Performed By: #### M G, CMP, TSH, T7, BNP #### [facility] [address] [place] [address] Dr. Glenys Holly Potassium [Moles/Vol] 3.0 mmol/L Critically low 3.5-5.1 [facility] Comment on above: Performed By: #### M G, CMP, TSH, T7, BNP #### [facility] [address] [place] [address] Dr. Glenys Holly Protein [Mass/Vol] 6.9 g/dL Normal 6.4-8.2 [facility] Comment on above: Performed By: #### M G, CMP, TSH, T7, BNP #### [facility] [address] [place] [address] Dr. Glenys Holly Sodium [Moles/Vol] 136 mmol/L Normal 136-145 [facility] Comment on above: Performed By: #### M G, CMP, TSH, T7, BNP #### [facility] [address] [address] [address] Glenys Holly Urea nitrogen [Mass/Vol] 16.0 mg/dL Normal 7.0-18.0 [facility] Comment on above: Performed By: #### M G, CMP, TSH, T7, BNP #### [facility] [address] [address] [address] Glenys Holly Urea nitrogen/Creatinine [Mass ratio] 21.1 mg/mg Normal [facility] Comment on above: Performed By: #### M G, CMP, TSH, T7, BNP #### [facility] [address] [address] [address] Glenys Holly TROPONIN, HIGH SENSITIVITYon 03-29-2022 HSTROP 30.7 pg/mL Normal 4.0-51.3 [facility] Comment on above: Result Comment: CUT- OFF POINTS HAVE BEEN ESTABLISHED BASED ON THE FOURTH UNIVERSAL DEFINITIONS OF MYOCARDIAL INFARCTION. THE UPPER REFERENCE LIMIT (URL) OF TROPONIN, DEFINED THE 99TH PERCENTILE OF cTnI DISTRIBUTION IN A REFERENCE POPULATION, HAS BEEN CONFIRMED THE DECISION THRESHOLD FOR [place] DIAGNOSIS. Performed By: #### M G, CMP, TSH, T7, BNP #### [facility] [address] [address] [address] Glenys Holly URINE MICROSCOPIC ONLYon BACTERIA MODERATE Abnormal NONE SEEN [facility] Comment on above: Performed By: #### M G, CMP, TSH, T7, BNP #### [facility] [address] [address] [address] Glenys Holly Bacteria identified Cx Nom (U) INDICATED Normal [facility] Comment on above: Performed By: #### M G, CMP, TSH, T7, BNP #### [facility] [address] [address] [address] Glenys Holly CA OX CRYSTALS MODERATE Normal [facility] Comment on above: Performed By: #### M G, CMP, TSH, T7, BNP #### [facility] [address] [address] [address] Glenys Holly CAST NONE SEEN Normal NONE SEEN [facility] Comment on above: Performed By: #### M G, CMP, TSH, T7, BNP #### [facility] [address] [address] [address] Glenys Holly Crystals LM Nom (Urine sed) SEEN Abnormal NONE SEEN [facility] Comment on above: Performed By: #### M G, CMP, TSH, T7, BNP #### [facility] [address] [address] [address] Glenys Holly Epithelial cells LM Ql (Urine sed) FEW Abnormal NONE SEEN /RARE [facility] Comment on above: Performed By: #### M G, CMP, TSH, T7, BNP #### [facility] [address] [address] [address] Glenys Holly MUCOUS NONE SEEN Normal NONE SEEN [facility] Comment on above: Performed By: #### M G, CMP, TSH, T7, BNP #### [facility] [address] [address] [address] Glenys Holly RBC 5-10 Abnormal 0-2 [facility] Comment on above: Performed By: #### M G, CMP, TSH, T7, BNP #### [facility] [address] [address] [address] Glenys Holly WBC 20-50 Abnormal NONE SEEN [facility] Comment on above: Performed By: #### M G, CMP, TSH, T7, BNP #### [facility] [address] [address] [address] Glenys Holly XR ABD FLAT UP_PA Luly 03-29 XR ABD FLAT UP_PA CH EXAMINATION: XR ABD FLAT UP_PA CH HISTORY: CONSTIPATION, UNSPECIFIED ; acute lower abdominal pain COMPARISON: No relevant comparison available. FINDINGS: LUNGS: Hyperexpanded lungs and chronic interstitial changes. No acute infiltrates or mass. MEDIASTINUM: No abnormal widening. BOWEL GAS PATTERN: Non-obstructed. FREE AIR: None. CALCIFICATIONS: Numerous atherosclerotic calcifications within the tortuous aorta projecting over the left kidney; best seen on prior CT study. BONES: No fracture or visible bone lesion. OTHER: Negative. IMPRESSION: 1. No acute cardiopulmonary process. Hyperexpanded lungs suggestive COPD. 2. Normal bowel gas pattern. No suspicious abdominal findings. Electronically authenticated by: RAMIRO EVANS Date: 2022-03-29 09:[address] [facility] [address] HEAD WO CONon 12-27-2021 CT HEAD WO CON EXAMINATION: CT HEAD WO CON HISTORY: Ataxia , acute hand tremors COMPARISON: No relevant comparison available. TECHNIQUE: Axial CT images were obtained without IV contrast. Dose reduction techniques were achieved by using automated exposure control and/or adjustment of mA and/or kV according to patient size and/or use of iterative reconstruction technique. FINDINGS: BRAIN: 2 old lacunar infarctions within the right basal ganglia. Moderate chronic small vessel ischemic changes within the deep white matter bilaterally. No edema, hemorrhage, mass, acute infarction, or inappropriate atrophy. CSF SPACES: No hydrocephalus, subarachnoid hemorrhage, or mass. Appropriate for age. SKULL: No fracture, mass, or other significant visible lesion. SINUSES: No significant mucosal thickening or fluid on the limited views. ORBITS: No appreciable abnormality on the limited views. OTHER: Negative IMPRESSION: 1. No appreciable acute abnormality to account for patient's symptoms. 2. Old lacunar infarctions within right basal ganglia. 3. Age consistent atrophy and chronic small vessel ischemic changes. Electronically authenticated by: RAMIRO EVANS Date: 2021-12-27 12:48 Normal [facility] RAD - MISCon 03-25-2020 RAD - MISC [id number]#[id number]:127 Normal [facility] Reminderson 03-25-2020 Reminders - From: Rose Mary Prater To: EU - Recalls Fabien; Sent: 02/25/2020 11:22:21 EDT Show up: 03/22/2020 11:22:00 EDT Subject: Needs renal scan w/lasix Due Date/Time: 03/22/2020 11:22:00 EDT Reminder/Recall Schedule repeat testing. Test: _ Renal Scan w/lasix Test due in: _ 1 month after her stent removal which is scheduled for 03/04/20 (Apr 01) Pt to f/u with Dr Gonzalez to have renal scan done Normal [facility] Consent for Procedure/Surger yon 03-05-2020 Consent for Procedure/Surgery [id number]:127 Normal [facility] Consultation Noteon 03-05-20 Consultation Note [id number]:127 Normal [facility] Ambulatory Clinical Summaryo n 03-04-2020 Ambulatory Clinical Summary {[id number]}CD: [id number] Normal [facility] Urology Office/Clinic Noteon 03-04-2020 Urology Office/Clinic Note Chief Complaint stent removal HPI Staff Pt is here for right Stent removal. ABX taken. Scope #3. History of Present Illness I have reviewed and verified the staff HPI to be accurate for this encounter. Review of Systems PHQ Score Initial Depression Screen Score: 0 ROS - Provider Constitutional: denies weight loss, denies hot flashes. Eyes: denies eye problems. Gastrointestinal: denies nausea, denies vomiting. Cardiovascular: denies chest pain or angina. Integumentary: no dryness Musculoskeletal: denies musculoskeletal symptoms. ENMT: denies otolaryngeal symptoms. Respiratory: no shortness of breath. Heme/Lymph: denies easy bleeding tendency, denies easy bruising tendency. Psychiatric: no confusion, no anxiety. Genitourinary: denies vaginal discharge, denies incontinence, denies dysuria, denies hematuria, denies urinary frequency, denies amenorrhea, denies menorrhagia, denies abnormal bleeding, denies pelvic pain, denies genital sores, and denies decreased libido. Physical Exam Vitals & Measurements HR: 66(Peripheral) RR: 18 BP: 130/88 HT: 167.0 cm HT: 167 cm WT: 52.0 kg WT: 52 kg BMI: 18.65 General Appearance: alert , no acute distress, well nourished, well developed female. Genitourinary: bladder nonpalpable, no flank pain. Procedure Operative Information Anesthesia Type: Local Procedure: Local Cystoscopy with Stent Removal Complications: None Surgical risks, benefits, details of the procedure have been explained to the patient. Full informed consent has been obtained. Intraoperative Information Prepped: Patient is placed in modified dorso/lithotomy position. The patient was prepped with the Betadine solution. Anesthesia: 2% Xylocaine Jelly per urethra. Procedure: Cystoscopy and right stent removal. The flexible Cystoscope was passed in retrograde fashion into the bladder without difficulty. The bladder was viewed in entirety and found to be without tumors or stones. Mild inflammation was seen surrounding the orifice with the stent seen protruding from it. The stent was then grasped and removed in its entirety. Specimens Removed: None Postoperative Information The patient tolerated the procedure well and was subsequently discharged home. Assessment/Plan 1. Ureteropelvic junction (UPJ) obstruction, right (N13.5: Crossing vessel and stricture of ureter without hydronephrosis) S/p Cysto/Rt. RG/Rt. JJ stent placement 02/01/2020. Stent was removed IO today w/ no difficulty. Pt. has a f/u w/ Dr. Gonzalez at [facility]. 2. Hydronephrosis, right (N13.30: Unspecified hydronephrosis) 3. Kidney stones, right calyceal, nonobstructive currently I have reviewed the previous health record information and history for this pt. from Dr. Jackman. Overall this patient has seen Dr. Gonzalez after I have placed a right-sided double-J ureteral stent secondary to a possible right ureteropelvic junction obstruction. Dr. Gonzalez felt that her dependent drainage from the right kidney may be affected by some malrotation from her severe scoliosis problem. His recommendation is that the stent be removed which was performed today. He will then follow-up at the [facility] for her renal scan with Lasix. She does have the known bilateral kidney stones which will subsequently need monitoring in the future as well. She will monitor for recurrence of the severe right flank pain which prompted the stent placement in the first place. Follow-up No qualifying data available Patient Education I, Maura Quintanilla , personally scribed for Dr. Jackman on 03/04/2020 13:09:03. . Documentation recorded by the scribe, Maura Quintanilla, accurately reflects the services(s) I performed and decisions made by me. Authenticated by Dr. Jackman on 03/04/2020 13:10:18. Problem List/Past Medical History Ongoing H/O emphysema High cholesterol Hydronephrosis, right Hypertension Kidney disease Ureteropelvic junction (UPJ) obstruction, right Historical No qualifying data Procedure/Surgical History Removal of stent (03/04/2020), Appendectomy, Cataract, Hysterectomy. Medications alprazolam 1 mg Tab, 1 mg= 1 tab(s), Oral, PRN amLODIPine 10 mg Tab, 10 mg= 1 tab(s), Oral, Daily aspirin 81 mg oral tablet, 81 mg= 1 tab(s), Oral, Daily carbidopa-levodopa 25 mg-100 mg Tab, Oral Cipro 500 mg Tab, See Instructions Daily Multiple for Women 50+ oral tablet, 1 tab(s), Oral, Daily hydrochlorothiazide-lisino pril 25 mg-20 mg Tab, 2 tab(s), Oral, Daily metoprolol 100 mg ER Tab, Oral, Daily Misc Medication potassium chloride 20 mEq ER Tab, 40 mEq= 2 tab(s), Oral, Daily Pravachol 20 mg Tab, 20 mg= 1 tab(s), Oral, Daily Allergies sulfa drugs (Unknown) Social History Tobacco Former smoker, quit more than 30 days ago Tobacco Use:., 03/04/2020 Former smoker, quit more than 30 days ago Tobacco Use:., 02/10/2020 Family History Lung cancer: Father. Malignant lymphoma: Child. Stroke: Mother. [facility] Comment on above: Result Comment: Elec tronically Signed By: Ravi JACKMAN MD\.br\Date and Time Signed: 03/04/20 13:12 EDT\.br\Electronically Co-Signed By: Maura Quintanilla MA\.br\Date and Time Co-Signed: 03/04/20 13:09 EDT Outpatient Clinic Recordon 0 02-23-2020 Outpatient Clinic Record [id number]:127 [facility] Ambulatory Clinical Summaryo n 02-10-2020 Ambulatory Clinical Summary {[id number]}CD: [id number] [facility] Patient Educationon 02-10-20 Patient Education Urinary Tract Infect ion Urinary tract infections (UTIs) can develop anywhere along your urinary tract. Your urinary tract is your body's drainage system for removing wastes and extra water. Your urinary tract includes two kidneys, two ureters, a bladder, and a urethra. Your kidneys are a pair of haywood-shaped organs. Each kidney is about the size of your fist. They are located below your ribs, one on each side of your spine. CAUSES Infections are caused by microbes, which are microscopic organisms, including fungi, viruses, and bacteria. These organisms are so small that they can only be seen through a microscope. Bacteria are the microbes that most commonly cause UTIs. SYMPTOMS Symptoms of UTIs may vary by age and gender of the patient and by the location of the infection. Symptoms in young women typically include a frequent and intense urge to urinate and a painful, burning feeling in the bladder or urethra during urination. Older women and men are more likely to be tired, shaky, and weak and have muscle aches and abdominal pain. A fever may mean the infection is in your kidneys. Other symptoms of a kidney infection include pain in your back or sides below the ribs, nausea, and vomiting. DIAGNOSIS To diagnose a UTI, your caregiver will ask you about your symptoms. Your caregiver also will ask to provide a urine sample. The urine sample will be tested for bacteria and white blood cells. White blood cells are made by your body to help fight infection. TREATMENT Typically, UTIs can be treated with medication. Because most UTIs are caused by a bacterial infection, they usually can be treated with the use of antibiotics. The choice of antibiotic and length of treatment depend on your symptoms and the type of bacteria causing your infection. HOME CARE INSTRUCTIONS ? If you were prescribed antibiotics, take them exactly as your caregiver instructs you. Finish the medication even if you feel better after you have only taken some of the medication. ? Drink enough water and fluids to keep your urine clear or pale yellow. ? Avoid caffeine, tea, and carbonated beverages. They tend to irritate your bladder. ? Empty your bladder often. Avoid holding urine for long periods of time. ? Empty your bladder before and after sexual intercourse. ? After a bowel movement, women should cleanse from front to back. Use each tissue only once. SEEK MEDICAL CARE IF: ? You have back pain. ? You develop a fever. ? Your symptoms do not begin to resolve within 3 days. SEEK IMMEDIATE MEDICAL CARE IF: ? You have severe back pain or lower abdominal pain. ? You develop chills. ? You have nausea or vomiting. ? You have continued burning or discomfort with urination. MAKE SURE YOU: ? Understand these instructions. ? Will watch your condition. ? Will get help right away if you are not doing well or get worse. Document Released: 03/07/2006 Document Revised: 11/26/2012 Document Reviewed: 07/05/2012 ExitCare? Patient Information ?2013 [employer]. [facility] Urology Office/Clinic Noteon 02-10-2020 Urology Office/Clinic Note Chief Complaint new patient follow up stent place on 02/01/2020 HPI Staff New Patient,follow up for right ureteral placement with KUB done on 02/09/2020 at [facility]. Stent was placed on 02/01/2020. Dysuria:yes, patient is having burning after she urinates Incomplete bladder emptying: no Hematuria: denies visible blood, but did have blood in urine last sunday. Frequency: yes, every half hour per day due to intake of fluids Urgency: yes Nocturia: no Stream: denies delay, stop and go with steady stream Leaking: no Post void dripping: no Wearing pads/ Depends: no Urge incontinence: no Stress incontinence: no Incontinence without Sensory Awareness: no Abdominal pain: patient states pressure lower abdominal region occasionally Flank pain: yes patient states with movement on her left side. 04/10 pain scale. Sexual complaints: no History of Present Illness I have reviewed the previous health record information and history for this patient from Dr. Jackman I have reviewed and verified the staff HPI to be accurate for this encounter. There have been no associated fever, chills, flank pain, or blood in the urine. reviewed test: kub The patient is tolerating the stent okay but she is having intermittent gross hematuria. She was quite concerned and called the office yesterday. She has not had urinary tract infection symptoms but does have moderate dysuria. Upon questioning the patient severe right-sided flank pain was alleviated by her stent placement although the stent is still bothering her at this point. Review of Systems PHQ Score Initial Depression Screen Score: 0 ROS - Provider Constitutional: denies weight loss, denies hot flashes. Eyes: denies eye problems. Gastrointestinal: denies nausea, denies vomiting. Cardiovascular: denies chest pain or angina. Integumentary: no dryness Musculoskeletal: denies musculoskeletal symptoms. ENMT: denies otolaryngeal symptoms. Respiratory: no shortness of breath. Heme/Lymph: denies easy bleeding tendency, denies easy bruising tendency. Psychiatric: no confusion, no anxiety. Physical Exam Vitals & Measurements HR: 71(Apical) RR: 16 BP: 98/85 HT: 167.0 cm HT: 167 cm WT: 52.0 kg WT: 52.0 kg BMI: 18.65 General Appearance: alert , no acute distress, well nourished, well developed female. Thin Genitourinary: bladder nonpalpable, no flank pain. Assessment/Plan 1. Ureteropelvic junction (UPJ) obstruction, right (N13.5: Crossing vessel and stricture of ureter without hydronephrosis) Narrowing, stones not being the issue for obstruction. S/p Cysto/Rt RG/ Rt JJ stent placement 02/01/20. Pt expresses she does not have interested in stent replacement every 3mos versus a surgery. 2. Hydronephrosis, right (N13.30: Unspecified hydronephrosis) 3. Right-sided kidney stones measuring up to 8 mm I had an extensive discussion with the patient today, including diagrams and explanations. I feel she has a right-sided ureteropelvic junction obstruction as the pain was alleviated by placement of the stent. I believe that the stones are not obstructing, nor were they the etiology of her hydronephrosis and pain at the time. We extensively discussed the possibility of a right ureteropelvic junction repair and possibly kidney stone removal under the same anesthesia. Discussed that the robotic laparoscopic approach is certainly a possibility. My recommendation would be referral to the [facility] and we will refer her to Dr. Adeel Field for his consideration. Over 50% of my 25 minute oqqx-kp-[id number] visit was spent in counseling and coordinating the patient's care. Follow-up No qualifying data available Patient Education Urinary Tract Infection Hiren Apodaca, personally scribed for Dr. Jackman on 02/10/2020 14:30:11. . Problem List/Past Medical History Ongoing H/O emphysema High cholesterol Hydronephrosis, right Hypertension Kidney disease Ureteropelvic junction (UPJ) obstruction, right Historical No qualifying data Procedure/Surgical History Appendectomy, Cataract, Hysterectomy. Medications alprazolam 1 mg Tab, 1 mg= 1 tab(s), Oral, PRN amLODIPine 10 mg Tab, 10 mg= 1 tab(s), Oral, Daily aspirin 81 mg oral tablet, 81 mg= 1 tab(s), Oral, Daily carbidopa-levodopa 25 mg-100 mg Tab, Oral Daily Multiple for Women 50+ oral tablet, 1 tab(s), Oral, Daily hydrochlorothiazide-lisino pril 25 mg-20 mg Tab, 2 tab(s), Oral, Daily metoprolol 100 mg ER Tab, Oral, Daily Misc Medication potassium chloride 20 mEq ER Tab, 40 mEq= 2 tab(s), Oral, Daily Pravachol 20 mg Tab, 20 mg= 1 tab(s), Oral, Daily Allergies sulfa drugs (Unknown) Social History Tobacco Former smoker, quit more than 30 days ago Tobacco Use:., 02/10/2020 Lab Results Ambulatory Point of Care Results Bilirubin Urine Dipstick: Negative (02/10/20 14:02:00) Blood Urine Dipstick: 3+ Large (02/10/20 14:02:00) Glucose Urine Dipstick: Negative (02/10/20 14:02:00) Ketones Urine Dipstick: Negative (02/10/20 14:02:00) Leukocytes Urine Dipstick: Trace (02/10/20 14:02:00) Nitrite Urine Dipstick: Negative (02/10/20 14:02:00) Protein Urine Dipstick: Negative (02/10/20 14:02:00) Specific [place] Urine Dipstick: 1.020 (02/10/20 14:02:00) Urine Appearance Urine Dipstick: Clear (02/10/20 14:02:00) Urine Color Urine Dipstick: Yellow (02/10/20 14:02:00) Urobilinogen Urine Dipstick: Normal 0.2-1 EU/dl (02/10/20 14:02:00) pH Urine Dipstick: 7.5 (02/10/20 14:02:00) Normal [facility] Comment on above: Result Comment: Elec tronically Signed By: FABIEN HERRERA, Ravi Mark\.br\Date and Time Signed: 02/10/20 14:34 EDT\.br\Electronically Co-Signed By: Hiren Neal MA\.br\Date and Time Co-Signed: 02/10/20 14:30 EDT RAD - MISCon 02-09-2020 RAD - MISC [id number]#1.00CD:127 [facility] Consultation Noteon 02-02-20 20 Consultation Note [id number]#1.00CD:127 [facility] Insurance Correspondence Off iceon 02-02-2020 Insurance Correspondence Office [id number]#1.00CD:127 [facility] Operative Reporton 0 Operative Report [id number]#1.00CD:127 [facility] RAD - CT Reporton 02-02-[address] - [address] Report [id number]#1.00CD:127 [facility] RAD - MISCon 02-02-2020 RAD - MISC [id number]#1.00CD:127 [facility] Discharge Summaryon 08-18-19 18 Discharge Summary MR#: [id number] Name[facility] Judith Land Admitted: 08/11/2017 Discharged: 08/15/2017 Date of : 1945 Physician: Supa May M.D. DISCHARGE SUMMARYADMITTING DIAGNOSIS: Mechanical fall with grade 5 splenic laceration.SECONDARY DIAGNOSES:1. Hypertension.2. Parkinson disease.3. Chronic obstructive pulmonary disease.HOSPITAL COURSE: This is a 72-year-old female who presented as a level 1trauma after a fall approximately 2 weeks prior. Since that time, thepatient had crampy abdominal pain that would come and go. She initiallypresented to an outside hospital where CT scan showed a splenic rupturewith active intraperitoneal bleeding. [facility].Upon arrival to the [facility], no other injuries were noted. The patientwas taken urgently to the operating room for an exploratory laparotomy withsplenectomy. The patient was initially admitted to the SICU for furthermanagement. The patient tolerated the procedure well with no complications.The patient was able to be transferred out of the SICU on postop day #2.The patient continues to do well. We slowly advanced her diet, which shetolerated. The patient was urinating on her own. She was passing gas. Thepatient began to work with physical therapy and occupational therapy. Thepatient received her appropriate post splenectomy vaccines on postop day#3. The patient did have some difficulty with weaning of her oxygenrequirements by nasal cannula. Respiratory therapy was consulted to workwith the patient. The patient was encouraged to continue to use theincentive spirometer and deep breathing exercises. On postop day #4,respiratory therapy was asked to do a home O2 eval for the patient as thepatient has had a long-standing smoking history and underlying COPD.Respiratory felt that the patient qualified for 5 L of home oxygen at thattime. The patient was discharged home in stable condition on postop day #4with home oxygen.DISCHARGE DIET: Regular.DISCHARGE INSTRUCTIONS: The patient is to continue regular diet astolerated. She should continue stool softeners and pain medication asneeded. She should avoid any heavy lifting or strenuous activity. Sheshould keep her scheduled followup appointment in the Trauma Clinic inapproximately 2 weeks. The patient should continue the use of home oxygenas directed. She should not smoke while using oxygen. The patient shouldcall to schedule an appointment with Pulmonology regarding her oxygenstatus and underlying COPD. The patient was instructed to notify thephysician if she noticed fever or chills, increased drainage or redness,unrelenting pain or abnormal bleeding or drainage from her incision site.The patient was to perform daily dry dressing changes over the abdominalwound. The patient is allowed to shower but should not let the water rundirectly over the wound.DISCHARGE MEDICATIONS: In addition to the patient's home medications,which were restarted upon discharge. The patient was discharged withPercocet 5/325 mg 1-2 tablets every 4-6 hours as needed for pain and [id number] mg b.i.d. for opioid related constipation.Electronicall y Signed by:Supa May M.D. 08/29/2017 12:01 P Supa May M.D. I personally saw this patient on the day of the encounter, performed thekey portion(s) of the service and participated in the management andconfirm the resident's documentation. Please note there may be anadditional personal documentation from me. Date Dict: 08/16/2017/10:11 Susan/SUKHJINDER Jonasate Trans: 08/17/2017 06:00 Susan/Izabela_JN:[id number] Normal [facility] BASIC METABOLIC PANELon 03-0 Calcium 8.8 mg/dL Normal 8.6-10.3 [facility] Comment on above: Order Comment: No: D o not add to previous draw Performed By: #### 0 0121, 76108 ####[place] [address] [address] Chloride 97 mmol/L Low 98-107 [facility] Comment on above: Order Comment: No: D o not add to previous draw Performed By: #### 0 0121, 93601 ####[facility] [place] [address], [facility] CO2 33 mmol/L High 21-31 [facility] Comment on above: Order Comment: No: D o not add to previous draw Performed By: #### 0 0121, 23272 ####[facility] Creatinine 0.75 mg/dL Normal 0.60-1.20 [facility] Comment on above: Order Comment: No: D o not add to previous draw Performed By: #### 0 0121, 35929 ####[facility] eGFR (black) mL/min/{1.73_m2} Normal >60 [facility] Comment on above: Order Comment: No: D o not add to previous draw Result Comment: Calc ulation may not be valid for patients over 70 years Performed By: #### 0 0121, 42583 ####[facility] [place] [address], [facility] eGFR (non-black) mL/min/{1.73_m2} Normal >60 [facility] Comment on above: Order Comment: No: D o not add to previous draw Result Comment: Calc ulation may not be valid for patients over 70 years Performed By: #### 0 0121, 80908 ####[facility] [facility].[address] Glucose mass conc 91 mg/dL Normal 70-100 [facility] Comment on above: Order Comment: No: D o not add to previous draw Performed By: #### 0 0121, 28108 ####[facility] [place] [address], [facility] Potassium molar conc 2.8 mmol/L Low 3.5-5.1 [facility] Comment on above: Order Comment: No: D o not add to previous draw Performed By: #### 0 0121, 66238 ####[facility] [place] [address], [facility] Sodium 137 mmol/L Normal 136-145 [facility] Comment on above: Order Comment: No: D o not add to previous draw Performed By: #### 0 0121, 40774 ####[facility] [place] [address], [facility] Urea nitrogen 13 mg/dL Normal 7-25 [facility] Comment on above: Order Comment: No: D o not add to previous draw Performed By: #### 0 0121, 20992 ####[facility] CBC COMPLETE BLOOD COUNTon 0 08-15-2017 Erythrocyte distribution width Auto Ratio (RBC) 14.6 % Normal 11.5-15.0 [facility] Comment on above: Order Comment: No: D o not add to previous draw Performed By: #### 5 610, 80405 ####[facility] Erythrocytes (RBC) 4.05 10*6/uL Normal 3.80-5.00 [facility] Comment on above: Order Comment: No: D o not add to previous draw Performed By: #### 5 610, 48246 ####[facility] Erythrocytes (RBC) 0 % Normal 0-0 [facility] Comment on above: Order Comment: No: D o not add to previous draw Performed By: #### 5 6100, 10369 ####[facility] Hematocrit (HCT) 36.8 % Normal 36.0-45.0 [facility] Comment on above: Order Comment: No: D o not add to previous draw Performed By: #### 5 6100, 82281 ####[facility] Hemoglobin mass conc (Bld) 12.3 g/dL Normal 12.0-15.0 [facility] Comment on above: Order Comment: No: D o not add to previous draw Performed By: #### 5 610, 62158 ####[facility] MCH 30.4 pg Normal 27.0-33.0 [facility] Comment on above: Order Comment: No: D o not add to previous draw Performed By: #### 5 6101, 51621 ####[facility] MCHC mass conc (RBC) 33.4 g/dL Normal 32.0-35.0 [facility] Comment on above: Order Comment: No: D o not add to previous draw Performed By: #### 5 6101, 30556 ####[address] MCV 90.9 fL Normal 82.0-98.0 [facility] Comment on above: Order Comment: No: D o not add to previous draw Performed By: #### 5 6101, 08835 ####[address] PLAT CNT 196 10*3/uL Normal 150-400 [facility] Comment on above: Order Comment: No: D o not add to previous draw Performed By: #### 5 6101, 06307 ####[address] WBC (Leukocytes) 11.0 10*3/uL High 4.0-10.6 [facility] Comment on above: Order Comment: No: D o not add to previous draw Performed By: #### 5 6101, 76460 ####[address] PORTABLE CHEST 1 VIEWon PORTABLE CHEST 1 VIEW [facility] [address]dn[address] [place] [id number] Sera ent Name: JUDITH LAND : 1945Sex: FAge: Race: WhiteMRN: [id number]. Location: [id number] Status: IVisit #: [id number] Date: 08/15/2017 7:05:00 AMCompleted Date: 08/15/2017 07:54 AMRequesting Provider: JOSH ESCUDERO Attending Provider: ALEXANDER CABALLERO Report Copy To: Signs & Symptoms: O2 DesaturationHistory: Patient history not availableComments: R/O EffusionExam: PORTABLE CHEST 1 VIEWAccession #: [id number] ===PORTABLE CHEST 1 VIEW 08/15/2017 7:54 AM EST SIGNS AND SYMPTOMS: O2 Desaturation TECHNOLOGIST COMMENTS: SOB QUESTION FOR THE RADIOLOGIST: R/O Effusion PROTOCOL: AP(PA) view was obtained. COMPARISON: Chest radiograph August 14, 2017, August 12, 2017, August 11, 2017. FINDINGS: Cardiomediastinal silhouette is unchanged.No pulmonary vascular distention.Unchanged right-sided pleural effusion. No pneumothorax.Silhouetting of the right heart border and right hemidiaphragm.No interval change in the bony thorax. IMPRESSION: Unchanged right-sided pleural effusion and silhouetting of the right heart border and right hemidiaphragm. Underlying right lower lung pneumonia cannot be excluded Approved by:Jazmin Mar on 08/15/2017 8:20 AM EST. I, Nina Leal, have reviewed the images and report and concur with these findings. Electronically signed by:Nina Leal. Transcribed by: [email or web address], User Resident: JAZMIN MARElectronically Signed by: NINA LEAL @ 08/15/2017 10:25 AMI personally read this/these film(s) with this resident Normal [facility] Comment on above: Order Comment: R/O E ffusion BASIC METABOLIC PANELon 03-0 Calcium 8.6 mg/dL Normal 8.6-10.3 [facility] Comment on above: Order Comment: No: D o not add to previous draw Performed By: #### 0 0121, 51198 ####[facility] [place] [address], [facility] Chloride 103 mmol/L Normal 98-107 [facility] Comment on above: Order Comment: No: D o not add to previous draw Performed By: #### 0 0121, 38286 ####[facility] [place] [address], [place] CO2 30 mmol/L Normal 21-31 [facility] Comment on above: Order Comment: No: D o not add to previous draw Performed By: #### 0 0121, 32473 ####[facility] [id number], [facility] Creatinine 0.60 mg/dL Normal 0.60-1.20 [facility] Comment on above: Order Comment: No: D o not add to previous draw Performed By: #### 0 0121, 22264 ####[facility] [place] [address], [facility] eGFR (black) mL/min/{1.73_m2} Normal >60 [facility] Comment on above: Order Comment: No: D o not add to previous draw Result Comment: Calc ulation may not be valid for patients over 70 years Performed By: #### 0 0121, 72670 ####[facility] [place] [address], [facility] eGFR (non-black) mL/min/{1.73_m2} Normal >60 [facility] Comment on above: Order Comment: No: D o not add to previous draw Result Comment: Calc ulation may not be valid for patients over 70 years Performed By: #### 0 0121, 50344 ####[facility] [place] [address], [facility] Glucose mass conc 81 mg/dL Normal 70-100 [facility] Comment on above: Order Comment: No: D o not add to previous draw Performed By: #### 0 0121, 24078 ####[facility] Potassium molar conc 3.0 mmol/L Low 3.5-5.1 [facility] Comment on above: Order Comment: No: D o not add to previous draw Performed By: #### 0 0121, 85253 ####[facility] Sodium 138 mmol/L Normal 136-145 [facility] Comment on above: Order Comment: No: D o not add to previous draw Performed By: #### 0 0121, 39637 ####[facility] Urea nitrogen 12 mg/dL Normal 7-25 [facility] Comment on above: Order Comment: No: D o not add to previous draw Performed By: #### 0 0121, 19829 ####[facility] CBC COMPLETE BLOOD COUNTon 0 - Erythrocyte distribution width Auto Ratio (RBC) 14.9 % Normal 11.5-15.0 [facility] Comment on above: Order Comment: No: D o not add to previous draw Performed By: #### 0 0121, 19017 ####[facility] Erythrocytes (RBC) 3.80 10*6/uL Normal 3.80-5.00 [facility] Comment on above: Order Comment: No: D o not add to previous draw Performed By: #### 0 0121, 27599 ####[facility] Erythrocytes (RBC) 0 % Normal 0-0 [facility] Comment on above: Order Comment: No: D o not add to previous draw Performed By: #### 0 0121, 15863 ####[facility] [facility].[address] Hematocrit (HCT) 34.3 % Low 36.0-45.0 [facility] Comment on above: Order Comment: No: D o not add to previous draw Performed By: #### 0 0121, 47698 ####[facility] [facility].[address] Hemoglobin mass conc (Bld) 11.7 g/dL Low 12.0-15.0 [facility] Comment on above: Order Comment: No: D o not add to previous draw Performed By: #### 0 0121, 44878 ####[facility] MCH 30.8 pg Normal 27.0-33.0 [facility] Comment on above: Order Comment: No: D o not add to previous draw Performed By: #### 0 0121, 79435 ####[facility] MCHC mass conc (RBC) 34.1 g/dL Normal 32.0-35.0 [facility] Comment on above: Order Comment: No: D o not add to previous draw Performed By: #### 0 0121, 13427 ####[facility] MCV 90.3 fL Normal 82.0-98.0 [facility] Comment on above: Order Comment: No: D o not add to previous draw Performed By: #### 0 0121, 95716 ####[facility] [place] [address], [facility] PLAT CNT 134 10*3/uL Low 150-400 [facility] Comment on above: Order Comment: No: D o not add to previous draw Performed By: #### 0 0121, 53254 ####[address] WBC (Leukocytes) 11.5 10*3/uL High 4.0-10.6 [facility] Comment on above: Order Comment: No: D o not add to previous draw Performed By: #### 0 0121, 88181 ####[address] MAGNESIUM BLOODon 08-14-2017 Magnesium 1.9 mg/dL Normal 1.9-2.7 [facility] Comment on above: Order Comment: No: D o not add to previous draw Performed By: #### 0 0121, 20577 ####[address] PHOSPHORUS BLOODon 8 Phosphate 2.5 mg/dL Normal 2.5-5.0 [facility] Comment on above: Order Comment: No: D o not add to previous draw Performed By: #### 0 0121, 74278 ####[address] PORTABLE CHEST 1 VIEWon PORTABLE CHEST 1 VIEW [facility] Bsk[address] [place] [id number] Sera ent Name: JUDITH LAND : 1945Sex: FAge: Race: WhiteMRN: [id number]. Location: [id number] Status: IVisit #: [id number] Date: 08/14/2017 8:00:00 AMCompleted Date: 08/14/2017 08:34 AMRequesting Provider: JOSH ESCUDERO Attending Provider: ALEXANDER CABALLERO Report Copy To: Signs & Symptoms: O2 DesaturationHistory: Patient history not availableComments: R/O AtelectasisExam: PORTABLE CHEST 1 VIEWAccession #: [id number] ===PORTABLE CHEST 1 VIEW 08/14/2017 8:34 AM EST SIGNS AND SYMPTOMS: O2 Desaturation TECHNOLOGIST COMMENTS: shortness of breath QUESTION FOR THE RADIOLOGIST: R/O Atelectasis PROTOCOL: AP(PA) view was obtained. COMPARISON: Chest radiograph August 12, 2017, August 11, 2017, July 21, 2017. FINDINGS: Cardiomediastinal silhouette is within normal limits.No pulmonary vascular congestion.There is a right-sided pleural effusion. No pneumothorax.Basal opacities in the bilateral lung calderon more significant on the right.No acute bony abnormality of thorax. IMPRESSION: Right-sided pleural effusion with silhouetting of the right hemidiaphragm. Underlying pneumonia is not excluded. Approved by:Jazmin Mar on 08/14/2017 9:09 AM EST. I, Kristian Nascimento, have reviewed the images and report and concur with these findings. Electronically signed by:Kristian Nascimento. Transcribed by: [email or web address], User Resident: JAZMIN MARElectronically Signed by: KRISTIAN NASCIMENTO @ 08/14/2017 09:18 PMI personally read this/these film(s) with this resident Normal [facility] Comment on above: Order Comment: R/O A telectasis BASIC METABOLIC PANELon Calcium 8.4 mg/dL Low 8.6-10.3 [facility] Comment on above: Order Comment: No: D o not add to previous draw Performed By: #### 0 0121, 34208 ####[facility] Chloride 109 mmol/L High 98-107 [facility] Comment on above: Order Comment: No: D o not add to previous draw Performed By: #### 0 0121, 80539 ####[facility] [place] [address], [facility] CO2 30 mmol/L Normal 21-31 [facility] Comment on above: Order Comment: No: D o not add to previous draw Performed By: #### 0 0121, 83424 ####[facility] [place] [address], [facility] Creatinine 0.62 mg/dL Normal 0.60-1.20 [facility] Comment on above: Order Comment: No: D o not add to previous draw Performed By: #### 0 0121, 12458 ####[facility] [place] [address], [facility] eGFR (black) mL/min/{1.73_m2} Normal >60 [facility] Comment on above: Order Comment: No: D o not add to previous draw Result Comment: Calc ulation may not be valid for patients over 70 years Performed By: #### 0 0121, 16997 ####[facility] [place] [address], [facility] eGFR (non-black) mL/min/{1.73_m2} Normal >60 Th e [facility] Comment on above: Order Comment: No: D o not add to previous draw Result Comment: Calc ulation may not be valid for patients over 70 years Performed By: #### 0 0121, 24826 ####[facility] [place] [address], [facility] Glucose mass conc 99 mg/dL Normal 70-100 [facility] Comment on above: Order Comment: No: D o not add to previous draw Performed By: #### 0 0121, 54889 ####[facility] [place] [address], [facility] Potassium molar conc 3.2 mmol/L Low 3.5-5.1 [facility] Comment on above: Order Comment: No: D o not add to previous draw Performed By: #### 0 0121, 59732 ####[facility] Sodium 143 mmol/L Normal 136-145 [facility] Comment on above: Order Comment: No: D o not add to previous draw Performed By: #### 0 0121, 94834 ####[facility] [facility].[address] Urea nitrogen 14 mg/dL Normal 7-25 [facility] Comment on above: Order Comment: No: D o not add to previous draw Performed By: #### 0 0121, 07688 ####[facility] CBC COMPLETE BLOOD COUNTon 0 08-13-2017 Erythrocyte distribution width Auto Ratio (RBC) 15.9 % High 11.5-15.0 [facility] Comment on above: Order Comment: No: D o not add to previous draw Performed By: #### 0 0121, 34360 ####[facility] [facility].[address] Erythrocytes (RBC) 0 % Normal 0-0 [facility] Comment on above: Order Comment: No: D o not add to previous draw Performed By: #### 0 0121, [id number] ####[facility].[address] Erythrocytes (RBC) 3.76 10*6/uL Low 3.80-5.00 [facility] Comment on above: Order Comment: No: D o not add to previous draw Performed By: #### 0 0121, 36660 ####[facility].[address] Hematocrit (HCT) 34.3 % Low 36.0-45.0 [facility] Comment on above: Order Comment: No: D o not add to previous draw Performed By: #### 0 0121, 41859 ####[facility] Hemoglobin mass conc (Bld) 11.4 g/dL Low 12.0-15.0 [facility] Comment on above: Order Comment: No: D o not add to previous draw Performed By: #### 0 0121, 08989 ####[facility] MCH 30.3 pg Normal 27.0-33.0 [facility] Comment on above: Order Comment: No: D o not add to previous draw Performed By: #### 0 0121, 92732 ####[facility] MCHC mass conc (RBC) 33.2 g/dL Normal 32.0-35.0 [facility] Comment on above: Order Comment: No: D o not add to previous draw Performed By: #### 0 0121, 90406 ####[facility].[address] MCV 91.2 fL Normal 82.0-98.0 [facility] Comment on above: Order Comment: No: D o not add to previous draw Performed By: #### 0 0121, 62761 ####[facility].[address] PLAT CNT 95 10*3/uL Low 150-400 [facility] Comment on above: Order Comment: No: D o not add to previous draw Performed By: #### 0 0121, 84378 ####[facility].[address] WBC (Leukocytes) 9.1 10*3/uL Normal 4.0-10.6 [facility] Comment on above: Order Comment: No: D o not add to previous draw Performed By: #### 0 0121, 81932 ####[facility] [place] [address], [facility] MAGNESIUM BLOODon 08-13-2017 Magnesium 1.8 mg/dL Low 1.9-2.7 [facility] Comment on above: Order Comment: No: D o not add to previous draw Performed By: #### 0 0121, 55634 ####[facility] [place] [address], [facility] PHOSPHORUS BLOODon 8 Phosphate 1.9 mg/dL Low 2.5-5.0 [facility] Comment on above: Order Comment: No: D o not add to previous draw Performed By: #### 0 0121, 66150 ####[facility].[address] BASIC METABOLIC PANELon Calcium 8.4 mg/dL Low 8.6-10.3 [facility] Comment on above: Order Comment: No: D o not add to previous draw Performed By: #### 0 0121, 90592 ####[facility] [place] [place] [address], [facility] Chloride 113 mmol/L High 98-107 [facility] Comment on above: Order Comment: No: D o not add to previous draw Performed By: #### 0 0121, 58019 ####[facility] [place] [address], [facility] CO2 25 mmol/L Normal 21-31 [facility] Comment on above: Order Comment: No: D o not add to previous draw Performed By: #### 0 0121, 09143 ####[facility] [place] [address], [facility] Creatinine 0.75 mg/dL Normal 0.60-1.20 [facility] Comment on above: Order Comment: No: D o not add to previous draw Performed By: #### 0 0121, 10436 ####[facility] [place] [address], [facility] eGFR (black) mL/min/{1.73_m2} Normal >60 [facility] Comment on above: Order Comment: No: D o not add to previous draw Result Comment: Calc ulation may not be valid for patients over 70 years Performed By: #### 0 0121, 27687 ####[facility] [place] [address], [facility] eGFR (non-black) mL/min/{1.73_m2} Normal >60 [facility] Comment on above: Order Comment: No: D o not add to previous draw Result Comment: Calc ulation may not be valid for patients over 70 years Performed By: #### 0 0121, 99326 ####[facility] [place] [address], [facility] Glucose mass conc 116 mg/dL High 70-100 [facility] Comment on above: Order Comment: No: D o not add to previous draw Performed By: #### 0 0121, 80216 ####[facility] [facility] [place] [place] [address], [facility] Potassium molar conc 3.6 mmol/L Normal 3.5-5.1 [facility] Comment on above: Order Comment: No: D o not add to previous draw Performed By: #### 0 0121, 05560 ####[facility] [place] [address], [facility] Sodium 144 mmol/L Normal 136-145 [facility] Comment on above: Order Comment: No: D o not add to previous draw Performed By: #### 0 0121, 85978 ####[facility] [place] [address], [facility] Urea nitrogen 16 mg/dL Normal 7-25 [facility] Comment on above: Order Comment: No: D o not add to previous draw Performed By: #### 0 0121, 36326 ####[facility].[address] CBC COMPLETE BLOOD COUNTon 0 08-12-2017 Erythrocyte distribution width Auto Ratio (RBC) 16.3 % High 11.5-15.0 [facility] Comment on above: Order Comment: No: D o not add to previous draw Performed By: #### 0 0121, 15128 ####[facility] Erythrocytes (RBC) 4.15 10*6/uL Normal 3.80-5.00 [facility] Comment on above: Order Comment: No: D o not add to previous draw Performed By: #### 0 0121, 22317 ####[place] [address] [address] Erythrocytes (RBC) 0 % Normal 0-0 [facility] Comment on above: Order Comment: No: D o not add to previous draw Performed By: #### 0 0121, 65299 ####[facility] Hematocrit (HCT) 37.6 % Normal 36.0-45.0 [facility] Comment on above: Order Comment: No: D o not add to previous draw Performed By: #### 0 0121, 20849 ####[facility].[address] Hemoglobin mass conc (Bld) 12.5 g/dL Normal 12.0-15.0 [facility] Comment on above: Order Comment: No: D o not add to previous draw Performed By: #### 0 0121, 59661 ####[facility] [place] [address] MCH 30.1 pg Normal 27.0-33.0 [facility] Comment on above: Order Comment: No: D o not add to previous draw Performed By: #### 0 0121, 32451 ####[facility] MCHC mass conc (RBC) 33.2 g/dL Normal 32.0-35.0 [facility] Comment on above: Order Comment: No: D o not add to previous draw Performed By: #### 0 0121, 15244 ####[facility] MCV 90.6 fL Normal 82.0-98.0 [facility] Comment on above: Order Comment: No: D o not add to previous draw Performed By: #### 0 0121, 11005 ####[facility] PLAT CNT 89 10*3/uL Low 150-400 [facility] Comment on above: Order Comment: No: D o not add to previous draw Performed By: #### 0 0121, 16297 ####[facility] WBC (Leukocytes) 13.5 10*3/uL High 4.0-10.6 [facility] Comment on above: Order Comment: No: D o not add to previous draw Performed By: #### 0 0121, 77948 ####[facility] HEMATOCRITon 08-12-2017 Hematocrit (HCT) 37.6 % Normal 36.0-45.0 [facility] Comment on above: Order Comment: No: D o not add to previous draw Performed By: #### 0 0121, 96390 ####[facility] HEMOGLOBINon 08-12-2017 Hemoglobin mass conc (Bld) 12.6 g/dL Normal 12.0-15.0 [facility] Comment on above: Order Comment: No: D o not add to previous drawLAB DRAW NOW - PER CECY MCELROY Performed By: #### 0 0121, 20022 ####[facility] [place] [address], [facility] MAGNESIUM BLOODon 08-12-2017 Magnesium 1.9 mg/dL Normal 1.9-2.7 [facility] Comment on above: Order Comment: No: D o not add to previous draw Performed By: #### 0 0121, 16433 ####[facility] [place] [address], [facility] PHOSPHORUS BLOODon 8 Phosphate 2.1 mg/dL Low 2.5-5.0 [facility] Comment on above: Order Comment: No: D o not add to previous draw Performed By: #### 0 0121, 01675 ####[facility] PORTABLE CHEST 1 VIEWon PORTABLE CHEST 1 VIEW [facility] Btjcfulpd[address] [place] [id number] Sera ent Name: JUDITH LAND : 1945Sex: FAge: Race: WhiteMRN: [id number]. Location: [id number] Status: IVisit #: [id number] Date: 08/12/2017 7:00:00 AMCompleted Date: 08/12/2017 09:16 AMRequesting Provider: SHANON HERNANDEZ Attending Provider: ALEXANDER CABALLERO Report Copy To: Signs & Symptoms: O2 DesaturationHistory: Patient history not availableComments: R/O AtelectasisExam: PORTABLE CHEST 1 VIEWAccession #: [id number] ===PORTABLE CHEST 1 VIEW 08/12/2017 9:16 AM EST SIGNS AND SYMPTOMS: O2 Desaturation TECHNOLOGIST COMMENTS: SOB QUESTION FOR THE RADIOLOGIST: R/O Atelectasis PROTOCOL: AP(PA) view was obtained. COMPARISON: Chest radiograph August 11, 2017 FINDINGS: Bibasilar airspace opacities, right more than left could represent atelectasis. Unchanged cardiac shadow and pulmonary vasculature. Interval removal of the ET and gastric tubes. Skin merissa and left upper quadrant drain again noted. IMPRESSION: Bibasilar airspace opacities, right more than left could represent atelectasis. Approved by:Andrzej Taylor on 08/12/2017 11:08 AM EST. I, Kristian Nascimento, have reviewed the images and report and concur with these findings. Electronically signed by:Kristian Nascimento. Transcribed by: [email or web address], User Resident: ANDRZEJ TAYLORElectronically Signed by: KRISTIAN NASCIMENTO @ 08/12/2017 12:27 PMI personally read this/these film(s) with this resident Normal [facility] Comment on above: Order Comment: R/O A telectasis ALCOHOLon 08-11-2017 Ethanol NONE DETECTED Normal [facility] Comment on above: Result Comment: Divi de by 1000 to convert mg/dL to percent. Example: 100mg/dL = 0.1%. Performed By: #### 1 0054, 96267 ####[facility] [place] [address], [facility] APTTon 08-11-2017 aPTT 42.8 s High 25.0-35.0 [facility] Comment on above: Order Comment: No: D o not add to previous draw Result Comment: ALL RESULTS MUST BE INTERPRETED WITH RESPECT TO BLOOD DRAWING ARTIFACTOR DILUTION ERROR OF ANTICOAGULANT AT THE TIME OF SAMPLING.THE APTT SHOULD NOT BE USED TO MONITOR UNFRACTIONATED HEPARIN THERAPY, THIS LABORATORY NO LONGER HAS AN ESTABLISHED THERAPEUTIC RANGE BASEDON THE APTT. IT IS RECOMMENDED THAT THE [facility] - HEPARIN ASSAY (ANTI-XAACTIVITY) BE USED FOR THIS PURPOSE. Performed By: #### 1 ####[facility] aPTT 27.2 s Normal 25.0-35.0 [facility] Comment on above: Result Comment: ALL RESULTS MUST BE INTERPRETED WITH RESPECT TO BLOOD DRAWING ARTIFACTOR DILUTION ERROR OF ANTICOAGULANT AT THE TIME OF SAMPLING.THE APTT SHOULD NOT BE USED TO MONITOR UNFRACTIONATED HEPARIN THERAPY, THIS LABORATORY NO LONGER HAS AN ESTABLISHED THERAPEUTIC RANGE BASEDON THE APTT. IT IS RECOMMENDED THAT THE [facility] - HEPARIN ASSAY (ANTI-XAACTIVITY) BE USED FOR THIS PURPOSE. Performed By: #### 5 6101, 06295 ####[place] [address] [facility].[address] ARTERIAL BLOOD GAS WITH ICAo n 08-11-2017 BASE EXCESS -7 mmol/L Low -2-2 [facility] Comment on above: Performed By: #### 1 ####[place] [address] [facility].[address] Bicarbonate (HCO3) 18 mmol/L Low 23-27 [facility] Comment on above: Performed By: #### 1 ####[place] [address] [facility].[address] CO2 34 mmHg Low 35-45 [facility] Comment on above: Performed By: #### 1 ####[place] [address] [facility].[address] DELIVERY SYSTEMS MV Normal [facility] Comment on above: Performed By: #### 1 ####[place] [address] [facility] [place] [place] [address], [facility] FIO2 40 % Normal 21-100 [facility] Comment on above: Performed By: #### 1 ####[facility] [place] [address], [facility] IONIZED CALCIUM 1.13 mmol/L Normal 1.13-1.32 [facility] Comment on above: Performed By: #### 1 ####[facility] [place] [address], [facility] MIN VOLUME 7.2 Normal [facility] Comment on above: Performed By: #### 1 ####[facility] [place] [address], [facility] MODALITY AC Normal [facility] Comment on above: Performed By: #### 1 ####[facility] O2 saturation 95.5 % Normal 94.0-97.0 [facility] Comment on above: Performed By: #### 1 ####[facility] [place] [address], [facility] Oxygen in arterial blood 161 mm[Hg] Critically high 75-100 [facility] Comment on above: Performed By: #### 1 ####[facility] [place] [address], [facility] PEEP 5.0 CMH20 Normal [facility] Comment on above: Performed By: #### 1 ####[facility] [place] [address], [facility] PF RATIO 403 mmHg High 50-400 [facility] Comment on above: Performed By: #### 1 ####[facility] pH of blood 7.33 [pH] Low 7.35-7.45 [facility] Comment on above: Performed By: #### 1 53, ####[facility].[address] Respiratory rate 16 /min Normal [facility] Comment on above: Performed By: #### 1 53, ####[facility].[address] TIDAL VOLUME (VT) CC 450 Normal [facility] Comment on above: Performed By: #### 1 53, ####[facility].[address] BASE EXCESS -9 mmol/L Low -2-2 [facility] Comment on above: Order Comment: RESUL TS CHECKED AND CALLED. ACCURATELY READ BACK BY DAT Performed By: #### 1 ####[facility].[address] Bicarbonate (HCO3) 18 mmol/L Low 23-27 [facility] Comment on above: Order Comment: RESUL TS CHECKED AND CALLED. ACCURATELY READ BACK BY DAT Performed By: #### 1 ####[facility].[address] CO2 44 mmHg Normal 35-45 [facility] Comment on above: Order Comment: RESUL TS CHECKED AND CALLED. ACCURATELY READ BACK BY DAT Performed By: #### 1 ####[facility] [facility].[address] IONIZED CALCIUM 1.05 mmol/L Low 1.13-1.32 [facility] Comment on above: Order Comment: RESUL TS CHECKED AND CALLED. ACCURATELY READ BACK BY DAT Performed By: #### 1 53, ####[facility] [place] [address], [facility] O2 saturation 96.9 % Normal 94.0-97.0 [facility] Comment on above: Order Comment: RESUL TS CHECKED AND CALLED. ACCURATELY READ BACK BY DAT Performed By: #### 1 53, ####[facility] [place] [address], [facility] Oxygen in arterial blood 532 mm[Hg] Critically high 75-100 [facility] Comment on above: Order Comment: RESUL TS CHECKED AND CALLED. ACCURATELY READ BACK BY DAT Performed By: #### 1 53, ####[facility] [place] [address], [facility] pH of blood 7.22 [pH] Critically low 7.35-7.45 [facility] Comment on above: Order Comment: RESUL TS CHECKED AND CALLED. ACCURATELY READ BACK BY DAT Performed By: #### 1 53, ####[facility] [place] [address], [facility] BASIC METABOLIC PANELon 03-0 -2017 Calcium 8.1 mg/dL Low 8.6-10.3 [facility] Comment on above: Order Comment: No: D o not add to previous draw Performed By: #### 1 53, ####[facility] [place] [address], [facility] Chloride 116 mmol/L High 98-107 [facility] Comment on above: Order Comment: No: D o not add to previous draw Performed By: #### 1 53, ####[facility] [place] [address], [facility] Creatinine 0.85 mg/dL Normal 0.60-1.20 [facility] Comment on above: Order Comment: No: D o not add to previous draw Performed By: #### 1 53, ####[facility] [place] [address], [facility] Glucose mass conc 109 mg/dL High 70-100 [facility] Comment on above: Order Comment: No: D o not add to previous draw Performed By: #### 1 53, ####[facility] [place] [address], [place] Potassium molar conc 4.9 mmol/L Normal 3.5-5.1 [facility] Comment on above: Order Comment: No: D o not add to previous draw Performed By: #### 1 53, ####[facility] [place] [address], [facility] Sodium 142 mmol/L Normal 136-145 [facility] Comment on above: Order Comment: No: D o not add to previous draw Performed By: #### 1 53, ####[facility] [place] [address], [facility] Urea nitrogen 16 mg/dL Normal 7-25 [facility] Comment on above: Order Comment: No: D o not add to previous draw Performed By: #### 1 53, ####[facility] [place] [address], [facility] Calcium 7.9 mg/dL Low 8.6-10.3 [facility] Comment on above: Order Comment: No: D o not add to previous draw Performed By: #### 1 53, ####[facility] [place] [address], [place] Chloride 113 mmol/L High 98-107 [facility] Comment on above: Order Comment: No: D o not add to previous draw Performed By: #### 1 53, ####[facility] [place] [address], [place] CO2 22 mmol/L Normal 21-31 [facility] Comment on above: Order Comment: No: D o not add to previous draw Performed By: #### 1 53, ####[facility] [place] [address], [facility] Creatinine 0.68 mg/dL Normal 0.60-1.20 [facility] Comment on above: Order Comment: No: D o not add to previous draw Performed By: #### 1 53, ####[facility] [place] [address], [facility] eGFR (black) mL/min/{1.73_m2} Normal >60 [facility] Comment on above: Order Comment: No: D o not add to previous draw Result Comment: Calc ulation may not be valid for patients over 70 years Performed By: #### 1 53, ####[facility] [place] [address], [facility] eGFR (non-black) mL/min/{1.73_m2} Normal >60 Th e [facility] Comment on above: Order Comment: No: D o not add to previous draw Result Comment: Calc ulation may not be valid for patients over 70 years Performed By: #### 1 53, ####[facility] [place] [address], [facility] Glucose mass conc 141 mg/dL High 70-100 [facility] Comment on above: Order Comment: No: D o not add to previous draw Performed By: #### 1 53, ####[facility] [place] [address], [facility] Potassium molar conc 3.3 mmol/L Low 3.5-5.1 [facility] Comment on above: Order Comment: No: D o not add to previous draw Performed By: #### 1 53, ####[facility] [place] [address], [facility] Sodium 139 mmol/L Normal 136-145 [facility] Comment on above: Order Comment: No: D o not add to previous draw Performed By: #### 1 53, ####[facility] Urea nitrogen 12 mg/dL Normal 7-25 [facility] Comment on above: Order Comment: No: D o not add to previous draw Performed By: #### 1 53, ####[facility] [facility].[address] CBC W/DIFFon 08-11-2017 ABS BASOPHILS 0.0 10*3/uL Normal 0.0-0.2 [facility] Comment on above: Performed By: #### 1 53, ####[facility] [facility].[address] ABS IMM GRANS 0.0 10*3/uL Normal 0.0-0.2 [facility] Comment on above: Performed By: #### 1 53, ####[facility].[address] Basophils Auto #/vol (Bld) 0.1 % Normal 0.0-1.0 [facility] Comment on above: Performed By: #### 1 53, ####[facility] [facility].[address] Eosinophils 0.0 10*3/uL Normal 0.0-0.5 [facility] Comment on above: Performed By: #### 1 53, ####[facility].[address] Eosinophils/100 leukocytes 0.1 % Normal 0.0-6.0 [facility] Comment on above: Performed By: #### 1 53, ####[facility] Erythrocyte distribution width Auto Ratio (RBC) 15.1 % High 11.5-15.0 [facility] Comment on above: Performed By: #### 1 ####[facility].[address] Erythrocytes (RBC) 0 % Normal 0-0 [facility] Comment on above: Performed By: #### 1 ####[facility].[address] Erythrocytes (RBC) 4.46 10*6/uL Normal 3.80-5.00 [facility] Comment on above: Performed By: #### 1 ####[facility].[address] Hematocrit (HCT) 40.3 % Normal 36.0-45.0 [facility] Comment on above: Performed By: #### 1 ####[facility].[address] Hemoglobin mass conc (Bld) 13.5 g/dL Normal 12.0-15.0 [facility] Comment on above: Performed By: #### 1 ####[facility].[address] IMMATURE GRANS 0.2 % Normal 0.0-1.0 [facility] Comment on above: Performed By: #### 1 ####[facility].[address] Lymphocytes 0.9 10*3/uL Low 1.2-4.0 [facility] Comment on above: Performed By: #### 1 ####[facility].[address] Lymphocytes/100 leukocytes 5.8 % Low 20.0-45.0 [facility] Comment on above: Performed By: #### 1 ####[id number].[address] MCH 30.3 pg Normal 27.0-33.0 [facility] Comment on above: Performed By: #### 1 ####[id number].[address] MCHC mass conc (RBC) 33.5 g/dL Normal 32.0-35.0 [facility] Comment on above: Performed By: #### 1 ####[place] [address] [facility].[address] MCV 90.4 fL Normal 82.0-98.0 [facility] Comment on above: Performed By: #### 1 ####[id number] Monocytes 0.7 10*3/uL Normal 0.1-1.0 [facility] Comment on above: Performed By: #### 1 ####[id number].[address] MONOS 4.6 % Low 5.0-12.0 [facility] Comment on above: Performed By: #### 1 ####[id number].[address] Neutrophils 13.6 10*3/uL High 1.6-7.6 [facility] Comment on above: Performed By: #### 1 ####[id number].[address] Neutrophils/100 leukocytes 89.2 % High 40.0-72.0 [facility] Comment on above: Performed By: #### 1 ####[id number] PLAT CNT 94 10*3/uL Low 150-400 [facility] Comment on above: Result Comment: P = 126 Performed By: #### 1 53, ####[id number] WBC (Leukocytes) 15.2 10*3/uL High 4.0-10.6 [facility] Comment on above: Performed By: #### 1 53, ####[id number] ABS BASOPHILS 0.0 10*3/uL Normal 0.0-0.2 [facility] Comment on above: Performed By: #### 5 3 ####[id number] ABS IMM GRANS 0.1 10*3/uL Normal 0.0-0.2 [facility] Comment on above: Performed By: #### 5 3 ####[id number] Basophils Auto #/vol (Bld) 0.3 % Normal 0.0-1.0 [facility] Comment on above: Performed By: #### 5 3 ####[id number] Eosinophils 0.0 10*3/uL Normal 0.0-0.5 [facility] Comment on above: Performed By: #### 5 102 ####[id number] Eosinophils/100 leukocytes 0.2 % Normal 0.0-6.0 [facility] Comment on above: Performed By: #### 5 3 ####[facility] Erythrocyte distribution width Auto Ratio (RBC) 14.3 % Normal 11.5-15.0 [facility] Comment on above: Performed By: #### 5 0103 ####[facility] Erythrocytes (RBC) 3.50 10*6/uL Low 3.80-5.00 [facility] Comment on above: Performed By: #### 5 0103 ####[id number].[address] Erythrocytes (RBC) 0 % Normal 0-0 [facility] Comment on above: Performed By: #### 5 0103 ####[facility] Hematocrit (HCT) 32.5 % Low 36.0-45.0 [facility] Comment on above: Performed By: #### 5 0103 ####[id number].[address] Hemoglobin mass conc (Bld) 10.9 g/dL Low 12.0-15.0 [facility] Comment on above: Performed By: #### 5 0103 ####[id number].[address] IMMATURE GRANS 0.4 % Normal 0.0-1.0 [facility] Comment on above: Performed By: #### 5 0103 ####[id number] [place] [address], [facility] Lymphocytes 2.3 10*3/uL Normal 1.2-4.0 [facility] Comment on above: Performed By: #### 5 0103 ####[facility] Lymphocytes/100 leukocytes 17.6 % Low 20.0-45.0 [facility] Comment on above: Performed By: #### 5 010 ####[id number] MCH 31.1 pg Normal 27.0-33.0 [facility] Comment on above: Performed By: #### 5 102 ####[id number] MCHC mass conc (RBC) 33.5 g/dL Normal 32.0-35.0 [facility] Comment on above: Performed By: #### 5 102 ####[place] [address] [address] MCV 92.9 fL Normal 82.0-98.0 [facility] Comment on above: Performed By: #### 5 102 ####[id number] Monocytes 0.8 10*3/uL Normal 0.1-1.0 [facility] Comment on above: Performed By: #### 5 102 ####[place] [address] [address] MONOS 6.1 % Normal 5.0-12.0 [facility] Comment on above: Performed By: #### 5 3 ####[id number] Neutrophils 9.7 10*3/uL High 1.6-7.6 [facility] Comment on above: Performed By: #### 5 3 ####[id number] Neutrophils/100 leukocytes 75.4 % High 40.0-72.0 [facility] Comment on above: Performed By: #### 5 102 ####[id number] [place], [place] [address] [address], [facility] PLAT CNT 126 10*3/uL Low 150-400 [facility] Comment on above: Performed By: #### 5 0103 ####[facility] [place] [address], [facility] WBC (Leukocytes) 12.9 10*3/uL High 4.0-10.6 [facility] Comment on above: Performed By: #### 5 0103 ####[facility] COMP METABOLIC PANELon 08-11 Alanine aminotransferase (ALT) 8 U/L Normal 7-52 [facility] Comment on above: Performed By: #### 0 0121, [id number] ####[facility] Albumin 2.6 g/dL Low 3.5-5.7 [facility] Comment on above: Performed By: #### 0 0121, [id number] ####[facility] ALKALINE PHOSPH 34 IU/L Normal 34-104 [facility] Comment on above: Performed By: #### 0 0121, [id number] ####[facility] Aspartate aminotransferase (AST) 11 U/L Low 13-39 [facility] Comment on above: Performed By: #### 0 0121, [id number] ####[facility] Bilirubin (total) 0.7 mg/dL Normal 0.3-1.0 [facility] Comment on above: Performed By: #### 0 0121, [id number] ####[facility] [place] [address], [facility] Calcium 7.4 mg/dL Low 8.6-10.3 [facility] Comment on above: Performed By: #### 0 0121, [id number] ####[facility] [place] [address], [facility] Chloride 112 mmol/L High 98-107 [facility] Comment on above: Performed By: #### 0 0121, [id number] ####[facility] [place] [address], [facility] CO2 22 mmol/L Normal 21-31 [facility] Comment on above: Performed By: #### 0 0121, 54750 ####[id number] [facility] [place] [address], [facility] Creatinine 0.83 mg/dL Normal 0.60-1.20 [facility] Comment on above: Performed By: #### 0 0121, [id number] ####[facility] [facility] [place] [address], [facility] eGFR (black) mL/min/{1.73_m2} Normal >60 [facility] Comment on above: Result Comment: Calc ulation may not be valid for patients over 70 years Performed By: #### 0 0121, 95394 ####[id number] [facility] [place] [address], [facility] eGFR (non-black) mL/min/{1.73_m2} Normal >60 Th e [facility] Comment on above: Result Comment: Calc ulation may not be valid for patients over 70 years Performed By: #### 0 0121, [id number] ####[facility] [place] [address], [facility] Glucose mass conc 138 mg/dL High 70-100 [facility] Comment on above: Performed By: #### 0 0121, [id number] ####[facility] [id number], [facility] Potassium molar conc 4.0 mmol/L Normal 3.5-5.1 [facility] Comment on above: Performed By: #### 0 0121, 88977 ####[facility].[address] Protein 4.1 g/dL Low 6.0-8.3 [facility] Comment on above: Performed By: #### 0 0121, 79470 ####[facility].[address] Sodium 138 mmol/L Normal 136-145 [facility] Comment on above: Performed By: #### 0 0121, 14840 ####[facility].[address] Urea nitrogen 16 mg/dL Normal 7-25 [facility] Comment on above: Performed By: #### 0 0121, 95474 ####[facility] Consultationon 08-11-2017 Consultation MR#: [id number] Pt. Name: Judith Land Date of Service: 08/10/2017 Room #: [id number] Birthdate: 1945 Referring Physician: CONSULTATIONREASON FOR CONSULTATION: Critical care management status post splenectomy,ventilatory management.HISTORY OF PRESENT ILLNESS: Ms. Judith Land is a 72-year-old female witha history of hypertension, hyperlipidemia, diabetes, and COPD, whopresented as a transfer from [place], [place] with a traumatic brain injury.The patient reportedly fell, as reported by her daughter, [facility], on 07/22/2017, in her home. She had the flu at that time and wasquite weak, dehydrated, and they said she had a very low potassium and wasevaluated by her doctor at that time. She fell 2 times during that day athome without any loss of consciousness. She said that she just felt weak,had no confusion, and has had no issues at home since that time until shehad worsening abdominal pain and left shoulder blade/shoulder pain over thelast couple of days. She presented to the hospital in [place], [place], and aCT abdomen and pelvis was obtained that demonstrated a grade 5 spleniclaceration. The patient was initially hemodynamically stable per reportsfrom the outside facility, however she became markedly hypotensive,unresponsive to multiple fluid boluses, and was transferred [facility] as a level 1 trauma. When she arrived in theTrauma We[facility], she had received 3 L of crystalloid and 4 units of blood atthat time and only transiently responded to this fluid resuscitation. Shewas hypotensive in the Trauma Weare and an emergent right femoral Cordis wasplaced for continued resuscitation and the patient was taken to theoperating room for emergent exploratory laparotomy, splenectomy for trauma.The patient presents in Intensive Care Unit postoperatively. She isintubated and sedated. She underwent exploratory laparotomy andsplenectomy with the Trauma Surgery Team, Dr. Caballero. She received a totalof 500 albumin, 200 mL of crystalloid, 2 units packed red blood cell, 1unit of platelets, 1 unit of fresh frozen plasma, 1 L of Cell Saver, fortotal intraoperative blood product and fluids. She had an estimated bloodloss of 2400 mL and urine output was 800 mL that included transport as wellas intraoperative urine output. She did not require any pressor supportthroughout the operation, had no oxygenation or ventilatory issues perreports from the Anesthesia team. She was kept intubated secondary to theamount of blood products she had and suspected respiratory insufficiencyPAST MEDICAL HISTORY: Hypertension; hyperlipidemia; chronic obstructivepulmonary disease, not on home O2; sve-rujdwim-xooizzmdu diabetes mellitus,type 2; anxiety.PAST SURGICAL HISTORY: Hysterectomy, partial.SOCIAL HISTORY: Denies any alcohol, tobacco, or illicit drug use. Livesat home with her daughter.MEDICATIONS: Include aspirin, Lopressor, Coreg, lisinopril, andmetformin.ALLERGIES: Sulfa, reaction unknown.REVIEW OF SYSTEMS: Due to the patient's current status of intubated andsedated, she is unable to answer review of systems at this time.PHYSICAL EXAMINATION: VITAL SIGNS: Temperature 34.6, heart rate 54, bloodpressure 145/66, respiratory rate 16 on mechanical ventilation, assistcontrol, respiratory rate 16, tidal volume 450, FiO2 40% with a PEEP of 5.GENERAL: The patient appears stated age. She is intubated, sedated,non-diaphoretic without pallor or erythema.HEENT/NECK: Normocephalic, atraumatic with trachea midline. No jugularvenous distention. No cervical or supraclavicular lymphadenopathy. Neckis supple without masses. Oral cavity with endotracheal tube. Otherwise,mucous membranes are moist. Oral gastric tube also present. Pupils equal,round, and reactive to light.CARDIOVASCULAR: Sinus bradycardia. No murmurs. Intact distal pulsesradial, femoral, and dorsalis pedis pulses bilaterally.RESPIRATORY: Lungs are clear to auscultation bilaterally with bilateralexpiratory wheeze, equal breath sounds on mechanical ventilation withoutuse of accessory muscles.GASTROINTESTINAL: Abdomen is soft, mildly distended with surgicaldressing, clean, dry, and intact with left-sided OWEN drain withbloody/serosanguineous output.PELVIS: Stable. Monroe catheter in place with clear urine.EXTREMITIES: No pedal edema.SKIN: Warm and dry. No lacerations, abrasions, contusions, or evidence ofexternal trauma bilateral upper or lower extremities. Left radial arterialline placed and right femoral central venous catheter in place withoutswelling, hematoma, or bleeding.NEUROLOGIC: Due to level of sedation, cranial nerve examination and fullneurological examination unable to be obtained at this time. GCS 3T.PSYCHIATRIC: Mood and affect unable to be assessed at this time secondaryto the level of sedation.ANCILLARY STUDIES: Preoperative labs include lipase 13, white blood cellcount 12.9, hemoglobin 10.9, hematocrit 32.5, and platelet count 126.Sodium 138, potassium 4.0, chloride 112, CO2 of 22, BUN 16, and creatinine0.83. Total bilirubin 0.7, albumin 2.6. Alkaline phosphatase 34, ALT 8,AST 11, lactate 1.3. Blood alcohol negative. INR 1.22.IMAGING STUDIES: CT abdomen and pelvis with contrast from outside facilityreviewed with attending surgeon in [facility] with evidence of rupturedspleen with blood products throughout the abdomen, left upper quadrant,right upper quadrant, and into the pelvis. No other traumatic injury isidentified.ASSESSMENT AND PLAN: Ms. Judith Land is a 72-year-old female withhistory of hypertension, hyperlipidemia, chronic obstructive pulmonarydisease, and diabetes mellitus, who presents to the Intensive Care Unitafter emergent exploratory laparotomy and splenectomy for traumatic injury,fall from standing approximately 2 weeks prior.Neurologic: No history of CVA or neurological deficits in past. GCS is 15reported in the Trauma [facility], currently GCS is 3T, intubated and sedated.She was started on propofol for sedation and fentanyl for pain control thatwill be weaned prior to attempt the extubation this morning.Cardiovascular: History of hypertension and hyperlipidemia. No history ofmyocardial infarction or congestive heart failure with good preoperativefunctional cardiac status.Currently hypertensive with bradycardia, hemodynamically stable. Should bestarted on p.r.n. antihypertensive at this time with Lopressor andhydralazine. Appropriate home medications including Lopressor andlisinopril will be restarted as well as Coreg.RESPIRATORY: History of chronic obstructive pulmonary disease, not on homeO2. Good functional respiratory status preoperatively. No evidence ofacute intrathoracic traumatic injury on preoperative chest x-ray.Currently with acute postoperative respiratory insufficiency, remainedintubated postoperatively. Currently, she is on minimal vent settings. Wewill obtain ABG at this time and wean to extubate as tolerated. Chestx-ray will be obtained to evaluate endotracheal tube placement P.r.n.nebulizer treatments have been started for history of chronic obstructivepulmonary disease and evidence of bilateral expiratory wheeze onexamination.Prophylaxis against ventilator associated pneumonia: Peridex b.i.d., headof bed elevated.Gastrointestinal: Currently status post exploratory laparotomy andsplenectomy for trauma. Surgical dressing clean, dry, and intact,Thong-Xiao drain situated in the left upper quadrant. It is intact,with serosanguineous drainage. Monitor output hourly, maintain surgicaldressing at this time. We will evaluate or gastric tube placement withpostoperative chest x-ray and place to low intermittent suction.Renal: No history of chronic or acute renal disease or issues. We willobtain postoperative BMP and replace electrolytes as needed and maintainFoley catheter for accurate intake and output for hourly in the setting ofcritical care status.Endocrine: History of wgm-fpwhzwf-bkglhyaxj diabetes mellitus, type 2, onhome metformin. We will hold metformin at this time. She will be startedon a sliding scale as needed for hyperglycemia. No history of any adrenalinsufficiency or thyroid disorders.Hematologic. Acute blood loss anemia, coagulopathy secondary to traumastatus post splenectomy. She has received a total of 16 units packed redblood cell, 1 unit FFP, and 1 pole of platelets. We will continue balanceresuscitation with additional 1 unit fresh frozen plasma with an INR of 1.2preoperatively. We will repeat the INR postoperatively. We will obtainq.8 hourly hemoglobin and hematocrit at this time.Infectious Disease: No signs or symptoms of infection or sepsis at thistime. She has received perioperative prophylactic antibiotics that arecomplete. No indication for postoperative antibiotics at this time.Lines, endotracheal tube, orogastric tube, placement will be confirmed withx-ray, left radial arterial line placed intraoperatively with appropriatewaveform. Right femoral Cordis, this was placed in emergent setting in theTrauma Weare, this will be removed/replaced within 24 hours after placement.Peripheral IV x2. Monroe catheter for above listed indication.Gastrointestina l prophylaxis: Protonix 40 mg IV once daily for stressulcer prophylaxis.Venous thrombosis prophylaxis: External pneumatic compression devices areplaced, pharmacologic prophylaxis contraindicated at this time due to highrisk for bleed in setting of acute blood loss anemia. Ventilatorassociated pneumonia prophylaxis as listed above.The patient seen and examined with plan of care discussed with attending,Dr. Caballero.Electronically Signed by:Alexander Caballero M.D. 08/12/2017 05:12 P __Alexander Caballero M.D. I personally saw this patient on the day of the encounter, performed thekey portion(s) of the service and participated in the management andconfirm the resident's documentation. Please note there may be anadditional personal documentation from me. Date Dict: 08/11/2017/04:38 A/Pippa Gutierrez Trans: 08/11/2017 02:22 [id number] Normal [facility] FRESH FROZEN PLASMA 2 UNITSo n 08-11-2017 PRODUCT CODE 1 E2701 Normal [facility] Comment on above: Order Comment: INR: 1.22 ,PTT: 27.2 at the time of order ;Indication: Activebleeding/invasive procedure with prolonged PT/PTT or INR > 1.6 Performed By: #### 1 53, ####[facility] PRODUCT CODE 2 E2701 Normal [facility] Comment on above: Order Comment: INR: 1.22 ,PTT: 27.2 at the time of order ;Indication: Activebleeding/invasive procedure with prolonged PT/PTT or INR > 1.6 Performed By: #### 1 53, ####[id number].[address] PRODUCT STATUS 1 PT Normal [facility] Comment on above: Order Comment: INR: 1.22 ,PTT: 27.2 at the time of order ;Indication: Activebleeding/invasive procedure with prolonged PT/PTT or INR > 1.6 Result Comment: Resu lt changed by IF on 08/11/2017 00:27. The previous value was XX.Result changed by IF on 08/12/2017 02:00. The previous value was IS. Performed By: #### 1 ####[facility].[address] PRODUCT STATUS 2 PT Normal [facility] Comment on above: Order Comment: INR: 1.22 ,PTT: 27.2 at the time of order ;Indication: Activebleeding/invasive procedure with prolonged PT/PTT or INR > 1.6 Result Comment: Resu lt changed by IF on 08/11/2017 03:17. The previous value was XM.Result changed by IF on 08/13/2017 02:00. The previous value was IS. Performed By: #### 1 53, ####[facility].[address] UNIT ABO 1 O Normal [facility] Comment on above: Order Comment: INR: 1.22 ,PTT: 27.2 at the time of order ;Indication: Activebleeding/invasive procedure with prolonged PT/PTT or INR > 1.6 Performed By: #### 1 53, ####[facility] UNIT ABO 2 O Normal [facility] Comment on above: Order Comment: INR: 1.22 ,PTT: 27.2 at the time of order ;Indication: Activebleeding/invasive procedure with prolonged PT/PTT or INR > 1.6 Performed By: #### 1 53, ####[facility] UNIT ID 1 [id number] Normal [facility] Comment on above: Order Comment: INR: 1.22 ,PTT: 27.2 at the time of order ;Indication: Activebleeding/invasive procedure with prolonged PT/PTT or INR > 1.6 Performed By: #### 1 53, ####[place] [address] UNIT ID 2 [id number] Normal [facility] Comment on above: Order Comment: INR: 1.22 ,PTT: 27.2 at the time of order ;Indication: Activebleeding/invasive procedure with prolonged PT/PTT or INR > 1.6 Performed By: #### 1 53, ####[facility] UNIT RH 1 Positive Normal [facility] Comment on above: Order Comment: INR: 1.22 ,PTT: 27.2 at the time of order ;Indication: Activebleeding/invasive procedure with prolonged PT/PTT or INR > 1.6 Performed By: #### 1 53, ####[facility] UNIT RH 2 Negative Normal [facility] Comment on above: Order Comment: INR: 1.22 ,PTT: 27.2 at the time of order ;Indication: Activebleeding/invasive procedure with prolonged PT/PTT or INR > 1.6 Performed By: #### 1 53, ####[facility] [place] [address], [facility] HEMATOCRITon 08-11-2017 Hematocrit (HCT) 37.7 % Normal 36.0-45.0 [facility] Comment on above: Order Comment: No: D o not add to previous draw Performed By: #### 1 53, ####[id number].[address] Hematocrit (HCT) 34.8 % Low 36.0-45.0 [facility] Comment on above: Order Comment: No: D o not add to previous draw Performed By: #### 1 53, ####[id number] [facility] [place] [address], [facility] HEMOGLOBINon 08-11-2017 Hemoglobin mass conc (Bld) 12.7 g/dL Normal 12.0-15.0 [facility] Comment on above: Order Comment: No: D o not add to previous drawLAB DRAW NOW - PER CECY MCELROY Performed By: #### 1 53, ####[id number] [address] Hemoglobin mass conc (Bld) 11.8 g/dL Low 12.0-15.0 [facility] Comment on above: Order Comment: No: D o not add to previous draw Performed By: #### 1 53, ####[place] [id number] [facility].[address] History and Physicalon 08-11 History and Physical MR#: [id number] Pt. Name: Judith Land Admitted: 08/11/2017 Date of : 1945 Attending Physician: Alexander Caballero M.D. Room #: SIC [id number] Discharge Date: HISTORY AND PHYSICALCHIEF COMPLAINT: Trauma level 1, status post fall.HISTORY OF PRESENT ILLNESS: The patient is a 72-year-old female, whopresented from an outside hospital after presenting to that emergencydepartment with acute abdominal pain. The patient reports she had fallapproximately 2 weeks ago and has since had crampy abdominal pain thatwould come and go. She states it is mostly left upper and left lowerquadrant abdominal pain. The patient had not seen a physician after havinga fall until presenting to the emergency department earlier yesterday. Thepatient had a CT scan done in the hospital that showed a splenic rupturewith active intraperitoneal bleeding. The patient was initially stable atthe outside hospital, however, she began to become unstable with systolicblood pressure in the 60s at 1 point. The patient was given a totalapproximately 3 L of fluid and 4 units of blood at the outside hospital.She had not been on any other blood products. [facility] to the concern for her instability. However,she was stable and round after receiving these blood products and fluid.The patient was unsure of what led up to the fall. Upon presenting to theED here, patient was given more fluids and continue with her bloodtransfusion. ATLS protocol was done, which showed no further injuriesbesides as previously known.REVIEW OF SYSTEMS: A 14+ review of systems is negative except as mentionedabove.PAST MEDICAL HISTORY: Hypertension.PAST SURGICAL HISTORY: Hysterectomy.FAMILY HISTORY: Noncontributory.SOCIAL HISTORY: Denies illicit drug us. Tobacco and alcohol unknown.ALLERGIES: Sulfa antibiotics.MEDICATIONS: Please see the patient's chart.PHYSICAL EXAMINATION: VITAL SIGNS: Afebrile, vital signs normal uponpresentation, however, they were fluctuating while in the [facility]uma [place],stabilized with fluid.GENERAL: Alert and oriented, no acute distress, awake and responsive.HEAD: Atraumatic, normocephalic.EYES: EOMI, no scleral icterus, pupils equal, round, and reactive.NECK: Supple, nontender, no cervical lymphadenopathy, trachea midline, nocervical tenderness on exam, no tenderness to axial loading, no tendernesswith rotation, no tenderness with flexion and extension. Patient did notpresent with C-collar.RESPIRATORY: Normal effort of breathing, initially on room air, put onnasal cannula wall in the ED, expiratory wheezes noted bilaterally.CARDIOVASCULAR : Regular rate and rhythm, normal heart sounds, 2+ pulsesthroughout upper and lower extremities bilaterally.ABDOMEN: Soft, nondistended, tender to palpation left upper quadrant,distention noted, tympanic on abdominal exam.EXTREMITIES: Atraumatic, no edema appreciated.SKIN: Warm, dry, no rash or lesions appreciated.NEUROLOGICAL: Grossly intact, GCS of 15. Strength 5/5 upper and lowerextremities bilaterally, sensation intact bilaterally.ASSESSMENT: The patient is a 72-year-old female who presented as a level 1trauma to the emergency department status post fall 2 weeks ago, with CTevidence of splenic injury with active intraperitoneal bleeding. Thepatient is responsive to fluid; however, blood pressure continues tofluctuate in the ED. Therefore, it was felt that the patient will requiresurgery.PLAN:1. The patient will go straight to OR for exploratory laparotomy.2. Management per SICU.Electronically Signed by:Alexander Caballero M.D. 08/13/2017 07:04 P Alexander Caballero M.D. I personally saw this patient on the day of the encounter, performed thekey portion(s) of the service and participated in the management andconfirm the resident's documentation. Please note there may be anadditional personal documentation from me. Date Dict: 08/11/2017/12:27 Susan/Pippa Delgado Trans: 08/11/2017 08:41 A/Izabela_JN:[id number] Normal [facility] LACTATE BLOODon 08-11-2017 Lactate 1.1 mmol/L Normal .5-2.2 [facility] Comment on above: Order Comment: No: D o not add to previous draw Performed By: #### 1 53, ####[facility] [place] [address], [facility] Lactate 1.3 mmol/L Normal .5-2.2 [facility] Comment on above: Performed By: #### 1 53, ####[facility] [place] [address], [facility] LIPASE BLOODon 08-11-2017 Lipase 13 Units/L Normal 11-82 [facility] Comment on above: Performed By: #### 0 0121, [id number] ####[facility] [place] [address], [facility] LIVER BATTERYon 08-11-2017 Alanine aminotransferase (ALT) 18 U/L Normal 7-52 [facility] Comment on above: Order Comment: No: D o not add to previous draw Performed By: #### 1 53, ####[facility] [place] [address], [facility] Albumin 2.8 g/dL Low 3.5-5.7 [facility] Comment on above: Order Comment: No: D o not add to previous draw Performed By: #### 1 53, ####[facility] [place] [address], [facility] ALKALINE PHOSPH 36 IU/L Normal 34-104 [facility] Comment on above: Order Comment: No: D o not add to previous draw Performed By: #### 1 53, ####[facility] [place] [address], [facility] Aspartate aminotransferase (AST) 30 U/L Normal 13-39 [facility] Comment on above: Order Comment: No: D o not add to previous draw Performed By: #### 1 53, ####[facility] [place] [address], [facility] Bilirubin (direct) 0.2 mg/dL Normal 0.0-0.2 [facility] Comment on above: Order Comment: No: D o not add to previous draw Performed By: #### 1 53, ####[facility] [place] [address], [facility] Bilirubin (total) 0.9 mg/dL Normal 0.3-1.0 [facility] Comment on above: Order Comment: No: D o not add to previous draw Performed By: #### 1 53, ####[facility] Protein 4.0 g/dL Low 6.0-8.3 [facility] Comment on above: Order Comment: No: D o not add to previous draw Performed By: #### 1 53, ####[facility] MAGNESIUM BLOODon 08-11-2017 Magnesium 1.4 mg/dL Low 1.9-2.7 [facility] Comment on above: Order Comment: No: D o not add to previous draw Performed By: #### 1 53, ####[facility] [facility].[address] Operative Reporton 8 Operative Report MR#: [id number] [facility] Room #: SIC [id number] Discharge Date: Birthdate: 1945 OPERATIVE REPORTDATE OF SURGERY: 08/11/2017SURGEON: Alexander Caballero M.D.ASSISTANTS: Aldo Villasenor M.D. PhD; ALEXANDER GutierrezREOPERATIVE DIAGNOSES: Traumatic splenic rupture.POSTOPERATIVE DIAGNOSIS: Traumatic splenic rupture.PROCEDURE: Splenectomy for trauma.INDICATION: This is a 72-year-old white female, [facility] been [facility] for a [facility] about 2 weeks ago.She presents now to the outside facility due to left lower quadrant painand was found on the CT to have a bleeding of splenic hemorrhage andtherefore was transferred here with a labile hemodynamics. The patient wasresuscitated with 4 units of blood and IV fluid, but continued to havelabile blood pressure, therefore decision was made to take emergently tothe operating room for exploration.DESCRIPTION OF PROCEDURE: The patient was taken to the operating room andlaid supine on operating table. Lines were placed. A general endotrachealanesthesia was induced by anesthesiologist without complication. Theabdomen was prepped and draped in the usual sterile fashion. Time-out wascompleted verifying correct patient, procedure site, positioning, and allthe special equipments prior to starting the procedure. Preoperativeantibiotics were given. An orogastric tube was placed.A vertical midline incision was made from xiphoid to just below theumbilicus. This was deepened through the subcutaneous tissues andhemostasis was achieved with electrocautery. The linea alba was identifiedand incised and peritoneal cavity entered. This was done carefully withonly a small incision that showed a peritoneum as we were expecting massiveblood in the peritoneum. A large amount of blood and clot was suctioned andremoved from the abdomen. The abdomen was explored. The spleen was found yannick ruptured. Upon further exploration, a large clot was removed from thesplenic location and this blood clot was found to have the splenic capsuleinvolved. The rest of the spleen was therefore left there without capsulein the peritoneum. The spleen was grasped with lap pads to mobilize itmedially and achieve a temporary hemostasis. It was rapidly mobilized intothe midline by incising the lateral peritoneal attachments withelectrocautery. The short gastric vessels were already dissected off due tothe large hematoma and need for ligation of the short gastric vessels. Thepack was replaced behind the spleen and the spleen was inspected. Wecontinued the packing and I left the quadrant with lap pads to control thebleeding. After achieving this, the rest of the abdomen was explored. Thesmall bowel was run from the ligament of Treitz down to the terminal ileumand no injuries were noted. The colon was also run without any finding ofinjury. We therefore shifted our attention to the splenectomy. Due to theinjury, there was no indication for splenorrhaphy or partial splenectomy.After mobilizing the spleen medially, the splenic hilum was alreadydissected and splenic hilum could be held between the fingers. We carefullyinspected the area to avoid the pancreatic tail. Decision was made aftersatisfactory inspection of the hilum to ligate and divide the hilum veryclose to this plane. An endo RANDALL stapler, de la cruz merissa were placed acrossthe hilum and they divided. The area was then reinspected and all smallbleeding from the area was controlled with electrocautery. The abdomen wasagain inspected and hemostasis was satisfactory. The abdomen was thencopiously irrigated until the fluid was cleared. All packings were removed.The left upper quadrant was again inspected for hemostasis. No otherbleeding was found. Pelvic area was suctioned without any new bleeding.The incision was then closed with looped 0 PDS in a running fashion. Theskin was stapled with skin stapler. The incision was then covered withisland dressing.The patient tolerated the procedure well and was kept intubated due toreceiving a large volume of fluid and blood. The patient was taken instable condition to the ICU for continued resuscitation and plan toextubate within the next [address] Caballero was present and scrubbedduring the whole procedure.Reviewed By:Aldo Villasenor MD 08/15/2017 07:37 PElectronically Signed by:Alexander Caballero M.D. 08/20/2017 09:18 A Alexander Caballero M.D. I was present for the entire procedure. Date Dict: 08/11/2017/06:29 A/Aldo Villasenor, MDDate Trans: 08/11/2017 03:54 P/mmoDN_JN:[id number] Normal [facility] PHOSPHORUS BLOODon 8 Phosphate 3.1 mg/dL Normal 2.5-5.0 [facility] Comment on above: Order Comment: No: D o not add to previous draw Performed By: #### 1 ####[facility] PLATELET APHERESIS 1 UNITon 08-11-2017 PRODUCT CODE 1 E7006 Normal [facility] Comment on above: Order Comment: Plt c ount at the time of order: 126 ;Indication: Platelet-inhibitingdrug therapy with invasive procedure/bleeding Performed By: #### 1 ####[facility] PRODUCT STATUS 1 PT Normal [facility] Comment on above: Order Comment: Plt c ount at the time of order: 126 ;Indication: Platelet-inhibitingdrug therapy with invasive procedure/bleeding Result Comment: Resu lt changed by IF on 08/11/2017 00:20. The previous value was XM.Result changed by IF on 08/12/2017 02:00. The previous value was IS. Performed By: #### 1 53, ####[address] UNIT ABO 1 O Normal [facility] Comment on above: Order Comment: Plt c ount at the time of order: 126 ;Indication: Platelet-inhibitingdrug therapy with invasive procedure/bleeding Performed By: #### 1 53, ####[address] UNIT ID 1 [id number] Normal [facility] Comment on above: Order Comment: Plt c ount at the time of order: 126 ;Indication: Platelet-inhibitingdrug therapy with invasive procedure/bleeding Performed By: #### 1 53, ####[address] UNIT RH 1 Positive Normal [facility] Comment on above: Order Comment: Plt c ount at the time of order: 126 ;Indication: Platelet-inhibitingdrug therapy with invasive procedure/bleeding Performed By: #### 1 53, ####[address] POC GLUCOSE LABon 08-11-2017 Glucose mass conc 100 mg/dL Normal 70-100 [facility] Comment on above: Performed By: #### 1 53, ####[address] PORTABLE ABDOMENon 8 PORTABLE ABDOMEN [facility]Department [facility] [id number] [place] [id number] Sera ent Name: JUDITH LAND : 1945Sex: FAge: Race: WhiteMRN: [id number]. Location: EMERPatient Status: IVisit #: [id number] Date: 08/11/2017 12:35:00 AMCompleted Date: 08/11/2017 01:07 AMRequesting Provider: ALEXANDER CABALLERO Attending Provider: ALEXANDER CABALLERO Report Copy To: Signs & Symptoms: Intra-op portable abdomenHistory: R/O foreign bodyComments: R/O foreign bodyExam: PORTABLE ABDOMENAccession #: [id number] ===PORTABLE ABDOMEN 08/11/2017 1:07 AM EST SIGNS AND SYMPTOMS: Intra-op portable abdomen TECHNOLOGIST COMMENTS: OR portable abdomen; checking count QUESTION FOR THE RADIOLOGIST: R/O foreign body PROTOCOL: AP(PA) view was obtained. COMPARISON: CT abdomen and pelvis August 10, 2017. FINDINGS: Nonobstructive bowel gas pattern. There remains oral contrast from prior CT overlying the right lower quadrant and rectum. NG tube overlying the left upper quadrant as well as a left upper quadrant abdominal drain. Degenerative changes of the lumbar spine. No other radiopaque foreign object overlying the field other than hemostats at the corners of the image and right femoral line. Contrast in dilated right pelvicalyceal system IMPRESSION: * No unexpected radiopaque foreign object demonstrated other than NG tube and left upper quadrant drain. Approved by:Nicolette Mcneill on 08/11/2017 1:12 AM EST. I, Kristian Nascimento, have reviewed the images and report and concur with these findings. Electronically signed by:Kristian Nascimento. Transcribed by: [email or web address], User Resident: NICOLETTE LOVETTlectronically Signed by: KRISTIAN NASCIMENTO @ 08/11/2017 12:16 PMI personally read this/these film(s) with this resident Normal [facility] Comment on above: Order Comment: R/O f oreign body PORTABLE CHEST 1 VIEWon PORTABLE CHEST 1 VIEW [facility]Department [facility] [address] [place] [address] Sera ent Name: JUDITH LAND : 1945Sex: FAge: Race: WhiteMRN: [id number]. Location: [id number] Status: IVisit #: [id number] Date: 08/11/2017 1:45:00 AMCompleted Date: 08/11/2017 02:13 AMRequesting Provider: CARMENZA WINTER Attending Provider: ALEXANDER CABALLERO Report Copy To: Signs & Symptoms: Post OPHistory: Patient history not availableComments: Check E.T. Position, also to chest OGT placementExam: PORTABLE CHEST 1 VIEWAccession #: [id number] ===PORTABLE CHEST 1 VIEW 08/11/2017 2:13 AM EST SIGNS AND SYMPTOMS: Post OP TECHNOLOGIST COMMENTS: Check E.T. Position, also to chest OGT placement per ordering physician QUESTION FOR THE RADIOLOGIST: Check E.T. Position, also to chest OGT placement PROTOCOL: AP(PA) view was obtained. COMPARISON: Chest radiograph July 21, 2017. FINDINGS: OG tube has tip overlying the stomach. Endotracheal tube in satisfactory position above the adelina. Postsurgical drain overlying the left upper quadrant with midline merissa. Lungs are clear. No pleural effusions. No pneumothorax. Cardiomediastinal silhouette is within normal limits. Low circumscribed rounded density overlying the lateral aspect of the right midlung, likely nipple shadow. IMPRESSION: * Satisfactory placement of the OG tube and ET tube.* No radiographic evidence of an acute cardiopulmonary process. Approved by:Nicolette Mcneill on 08/11/2017 3:25 AM EST. I, Kristian Nascimento, have reviewed the images and report and concur with these findings. Electronically signed by:Kristian Nascimento. Transcribed by: [email or web address], User Resident: NICOLETTE TOTHANElectronically Signed by: KRISTIAN NASCIMENTO @ 08/11/2017 12:17 PMI personally read this/these film(s) with this resident Normal [facility] Comment on above: Order Comment: Check E.T. Position, also to chest OGT placement PROTHROMBIN TIMEon 8 INR Coag RelTime (PPP) 1.44 {INR} High 0.91-1.16 [facility] Comment on above: Order Comment: No: D o not add to previous draw Result Comment: ACCC P RECOMMENDED INR FOR WARFARIN THERAPY CONDITION INRPROPHYLAXIS OF VENOUS THROMBOSIS 2-3(HIGH-RISK SURGERY)TREATMENT OF VENOUS THROMBOSIS 2-3TREATMENT OF PULMONARY EMBOLISM 2-3PREVENTION OF SYSTEMIC EMBOLISM: 2-3 ACUTE MYOCARDIAL INFARCTION TISSUE HEART VALVES VALVULAR HEART DISEASE ATRIAL FIBRILLATION RECURRENT SYSTEMIC EMBOLISMMECHANICAL HEART VALVE 2.5-3.5 FROM: ORAL ANTICOAGULANTS. MECHANISM OF ACTION, CLINICALEFFECTIVENESS, AND OPTIMAL THERAPEUTIC RANGE. [id number];108:231S-246S. Performed By: #### 1 53, ####[facility] [facility].[address] Prothrombin time (PT) Coag time (PPP) 17.7 s High 12.3-14.8 [facility] Comment on above: Order Comment: No: D o not add to previous draw Result Comment: ALL RESULTS MUST BE INTERPRETED WITH RESPECT TO BLOOD DRAWING ARTIFACTOR DILUTION ERROR OF ANTICOAGULANT AT THE TIME OF SAMPLING. Performed By: #### 1 53, ####[facility] [facility].[address] INR Coag RelTime (PPP) 1.22 {INR} High 0.91-1.16 [facility] Comment on above: Result Comment: ACCC P RECOMMENDED INR FOR WARFARIN THERAPY CONDITION INRPROPHYLAXIS OF VENOUS THROMBOSIS 2-3(HIGH-RISK SURGERY)TREATMENT OF VENOUS THROMBOSIS 2-3TREATMENT OF PULMONARY EMBOLISM 2-3PREVENTION OF SYSTEMIC EMBOLISM: 2-3 ACUTE MYOCARDIAL INFARCTION TISSUE HEART VALVES VALVULAR HEART DISEASE ATRIAL FIBRILLATION RECURRENT SYSTEMIC EMBOLISMMECHANICAL HEART VALVE 2.5-3.5 FROM: ORAL ANTICOAGULANTS. MECHANISM OF ACTION, CLINICALEFFECTIVENESS, AND OPTIMAL THERAPEUTIC RANGE. [id number];108:231S-246S. Performed By: #### 5 6101, [address] ####[facility] [place] [address], [facility] Prothrombin time (PT) Coag time (PPP) 15.5 s High 12.3-14.8 [facility] Comment on above: Result Comment: ALL RESULTS MUST BE INTERPRETED WITH RESPECT TO BLOOD DRAWING ARTIFACTOR DILUTION ERROR OF ANTICOAGULANT AT THE TIME OF SAMPLING. Performed By: #### 5 6101, [address]1010 ####[facility] [facility] [place] [address], [facility] RBC'S 4 UNITSon 08-11-2017 CROSSMATCH INTERP 1 COMP Normal [facility] Comment on above: Performed By: #### 8 6004 ####[facility] [place] [address], [place] CROSSMATCH INTERP 2 COMP Normal [facility] Comment on above: Performed By: #### 8 6004 ####[facility] [place] [address], [place] CROSSMATCH INTERP 3 COMP Normal [facility] Comment on above: Performed By: #### 8 6004 ####[facility] [place] [address], [place] CROSSMATCH INTERP 4 COMP Normal [facility] Comment on above: Performed By: #### 8 6004 ####[facility] [facility] [place] [address], [facility] PRODUCT CODE 1 E0686 Normal [facility] Comment on above: Performed By: #### 8 6004 ####[facility] [place] [address], [place] PRODUCT CODE 2 E0336 Normal [facility] Comment on above: Performed By: #### 8 6004 ####[facility] [place] [address], [place] PRODUCT CODE 3 E0336 Normal [facility] Comment on above: Performed By: #### 8 6004 ####[facility] [facility].[address] PRODUCT CODE 4 E0336 Normal [facility] Comment on above: Performed By: #### 8 6004 ####[facility] [place] [address], [facility] PRODUCT STATUS 1 RE Normal [facility] Comment on above: Result Comment: Resu lt changed by IF on 08/11/2017 00:26. The previous value was XM.Result changed by IF on 08/11/2017 01:42. The previous value was IS.Result changed by IF on 08/14/2017 07:03. The previous value was XM. Performed By: #### 8 6004 ####[place] [id number] [facility].[address] PRODUCT STATUS 2 PT Normal [facility] Comment on above: Result Comment: Resu lt changed by IF on 08/11/2017 00:26. The previous value was XM.Result changed by IF on 08/12/2017 02:00. The previous value was IS. Performed By: #### 8 6004 ####[facility] [place] [address], [facility] PRODUCT STATUS 3 RE Normal [facility] Comment on above: Result Comment: Resu lt changed by IF on 08/12/2017 15:16. The previous value was XX. Performed By: #### 8 6004 ####[facility] [place] [address], [facility] PRODUCT STATUS 4 RE Normal [facility] Comment on above: Result Comment: Resu lt changed by IF on 08/11/2017 00:26. The previous value was XM.Result changed by IF on 08/11/2017 01:42. The previous value was IS.Result changed by IF on 08/14/2017 07:03. The previous value was XM. Performed By: #### 8 6004 ####[facility] UNIT ABO 1 O Normal [facility] Comment on above: Performed By: #### 8 6004 ####[facility] [place] [address], [facility] UNIT ABO 2 O Normal [facility] Comment on above: Performed By: #### 8 6004 ####[facility] [place] [address], [facility] UNIT ABO 3 O Normal [facility] Comment on above: Performed By: #### 8 6004 ####[facility] [place] [address], [facility] UNIT ABO 4 O Normal [facility] Comment on above: Performed By: #### 8 6004 ####[facility] UNIT ID 1 [id number] Normal [facility] Comment on above: Performed By: #### 8 6004 ####[facility] [place] [address], [facility] UNIT ID 2 [id number] Normal [facility] Comment on above: Performed By: #### [id number] ####[facility] UNIT ID 3 [id number] Normal [facility] Comment on above: Performed By: #### 8 [id number] ####[facility] [place] [address], [facility] UNIT ID 4 [id number] Normal [facility] Comment on above: Performed By: #### 8 [id number] ####[facility] [place] [address], [facility] UNIT RH 1 Negative Normal [facility] Comment on above: Performed By: #### 8 [id number] ####[facility] [place] [address], [place] UNIT RH 2 Negative Normal [facility] Comment on above: Performed By: #### 8 [id number] ####[facility] [place] [address], [place] UNIT RH 3 Negative Normal [facility] Comment on above: Performed By: #### 8 [id number] ####[facility] [place] [address], [place] UNIT RH 4 Negative Normal [facility] Comment on above: Performed By: #### 8 [id number] ####[facility] [place] [address], [place] SERUM TESTon 08-11 TEST Negative Normal [facility] Comment on above: Performed By: #### [id number] ####[facility] [place] [address], [place] TYPE AND CROSSMATCHon 2017 ABO INTERPRETATION O Normal [facility] Comment on above: Performed By: #### 6 [id number] ####[facility] [place] [address], [place] ANTIBODY SCREEN Negative Normal [facility] Comment on above: Performed By: #### 6 [id number] ####[facility] [place] [address], [place] RH INTERPRETATION Negative Normal [facility] Comment on above: Performed By: #### 6 [id number] ####[facility] [place] [address], [place] Vital Signs Date Time Vital Sign Value Performing Clinician Faci lity 05-15-2023 13:50-0500 Body height 167.64 cm MD Rodrick Leary Work Phone: [facility] 05-15-2023 13:50-0500 Body weight 57.15 kg MD Rodrick Leary Work Phone: [facility] Encounters Encounter Date Encounter Type Care Provider Facility Start: 05-15-2023 End: 05-15-2023 ambulatory Cathie Reid Facility:[facility] Start: 05-15-2023 End: 05-15-2023 ambulatory MD Rodrick Leary Work Phone: [facility] Work Phone: Start: 05-15-2023 End: 05-15-2023 Patient encounter procedure MD Rodrick Leary Work Phone: [facility] [place] Work Phone: Start: 01-12-2023 End: 01-12-2023 ambulatory COOPER ROWLEY [facility] Start: 10-09-2022 End: 10-10-[address] RODRICK LEARY . Facility: Start: 07-19-2022 End: 07-19-2022 ambulatory [facility] Start: 05-31-2022 ambulatory [facility] Start: 05-24-2022 End: 05-25-[address] RODRICK LEARY . Facility: Start: 05-08-2022 End: 05-10-2022 Evaluation and management of inpatient DR RODRICK LEARY . Facility: Start: 03-29-2022 End: 03-29-[address] MISAEL PEDRAZA . Facility: Start: 12-27-2021 End: 12-28-[address] RODRICK LEARY . Facility: Start: 08-13-2017 End: 08-14-2017 Ambulatory DEFAULT PHYSICIAN Facility:[facility] Start: 08-11-2017 End: 08-15-2017 Evaluation and management of inpatient REFERRED SELF Facility:[facility] Procedures Date Procedure Procedure Detail Performing Clinician Start: 05-15-2023 MRI of head MD Rodrick Leary Work Phone: Start: 08-14-2017 INTRODUCTION OF SERUM/TOX/VACCINE INTO MUSCLE, PERC APPROACH SUPA MAY Start: 08-11-2017 MEASURE OF ARTERIAL SATURATION, PERIPHERAL, PERC APPROACH SUPA MAY Start: 08-11-2017 RESECTION OF SPLEEN, OPEN APPROACH ATHANASIOS BRAMOS Start: 08-11-2017 TRANSFUSE NONAUT FRO KRYSTYNA PLASMA IN PERIPH VEIN, KAMALJIT HALEIDT Start: 08-11-2017 TRANSFUSE NONAUT HARRY TELETS IN PERIPH VEIN, KAMALJIT HALEIDT Start: 08-11-2017 TRANSFUSE NONAUT RED BLOOD CELLS IN PERIPH VEIN, KAMALJIT MAY Payers Date Payer Category Payer Self-pay [id number] 1958 Medicare [id number] 1958 Unknown [id number] 1945 Unknown [id number] 2.16.84 [id number] 1945 Unknown [id number] 2.16.84 [id number] 1945 Unknown [id number] 2.16.84 [id number] 1945 Unknown [id number] 2.16.84 [id number] 1945 Unknown [id number] 2.16.84 [id number] Medicare [id number] Unknown Unknown [id number] 2.16.8 [id number] Social History Date Type Detail Facility [facility] Work Phone: Start: 1945 Sex Assigned At Female F [facility] Clinical Notes 08-04-2020 to 01-12-2023 Note Date & Type Note Facility 01-12-2023 Note Continue statin [facility] 01-12-2023 Note Hypertension is elev ated in office most likely r/t white coat syndrome States b/p at home is typically 120's/70's [facility] 01-12-2023 Note Will have pt hold me toprolol and see if her fatigue improves Continue to monitor b/p at home and call office for b/p increase greater than 130/80 or for any concerns. [facility] 01-12-2023 Note [facility] CARDIOLOGY PROGR ESS NOTE HPI: Judith Land is a 77 y.o. female here for routine f/U HPI PMH- COPD, HTN, HLD, and Parkinson's. Patient was initially referred to Cardiology clinic for abnormal stress test. She presents today for follow-up. Currently she c/o generalized fatigue and most afternoons she can fall asleep. Denied chest pain, shortness of breath, orthopnea, palpitations or tachycardia PCP had decreased metoprolol in 1/2 to 50 mg without any improvement of fatigue. Review of Systems Constitutional: Positive for fatigue. Respiratory: Negative. Cardiovascular: Negative. Neurological: Negative. All other systems reviewed and are negative. Visit Vitals BP 146/76 (BP Location: Left arm, Patient Position: Sitting) Pulse 62 Ht 1.676 m (5' 6 ) Wt 56.2 kg (124 lb) SpO2 95% BMI 20.01 kg/m??? Smoking Status Former BSA 1.62 m??? Allergies Allergen Reactions Sulfa (Sulfonamide Antibiotics) Anaphylaxis Medications: Current Outpatient Medications on File Prior to Visit Medication Sig Dispense Refill ALPRAZolam (Xanax) 1 mg tablet in the morning. amLODIPine (Norvasc) 5 mg tablet Take 1 tablet (5 mg) by mouth once daily as directed. 90 tablet 3 aspirin 81 mg EC tablet Take 81 mg by mouth in the morning. carbidopa-levodopa (Sinemet) 25-100 mg tablet in the morning. cholecalciferol (Vitamin D-3) 50 MCG (2000 UT) tablet Take 2,000 Units by mouth in the morning. isosorbide mononitrate ER (Imdur) 60 mg 24 hr tablet Take 60 mg by mouth in the morning. Klor-Con M20 20 mEq ER tablet Take 20 mEq by mouth in the morning and at bedtime. lisinopriL-hydrochlorothiazide 20-25 mg tablet Take 1 tablet by mouth in the morning. metoprolol tartrate (Lopressor) 100 mg tablet Take 50 mg by mouth in the morning and at bedtime. pravastatin (Pravachol) 20 mg tablet Take 20 mg by mouth at bedtime. [DISCONTINUED] aspirin 325 mg EC tablet in the morning. No current facility-administered medications on file prior to visit. Physical Exam: Constitutional: Appearance: Normal appearance. Without apparent distress, thin appearing HENT: Head: Normocephalic and atraumatic. Nose: Nose normal. Mouth/Throat: Mouth: Mucous membranes are moist. Eyes: Extraocular Movements: Extraocular movements intact. Conjunctiva/sclera: Conjunctivae normal. Neck: Vascular: No JVD. Cardiovascular: Rate and Rhythm: Normal rate and regular rhythm. Pulses: Dorsalis pedis pulses are 3 on the right side and 3on the left side. Posterior tibial pulses are 3 on the right side and 3 on the left side. Heart sounds: Normal heart sounds, S1 normal and S2 normal. Pulmonary: Effort: Pulmonary effort is normal. Breath sounds: Inspiratory wheeze, otherwise clear lung sounds Abdominal: General: Bowel sounds are normal. Palpations: Abdomen is soft. Musculoskeletal: General: Normal range of motion. Cervical back: Normal range of motion. Right lower leg: No edema. Left lower leg: No edema. Skin: General: Skin is warm and dry. Capillary Refill: Capillary refill takes less than 2 seconds. Neurological: General: No focal deficit present. Mental Status: She is alert and oriented to person, place, and time. Psychiatric: Mood and Affect: Mood normal. Behavior: Behavior normal. Thought Content: Thought content normal. Judgment: Judgment normal. Labs: Last lab values have been reviewed CV Testin05/24/22 05/05/22 Echo Assessment/Plan: Other fatigue Will have pt hold metoprolol and see if her fatigue improves Continue to monitor b/p at home and call office for b/p increase greater than 130/80 or for any concerns. Hypertension Hypertension is elevated in office most likely r/t white coat syndrome States b/p at home is typically 120's/70's Hyperlipidemia Continue statin RTC 3-6 months or earlier if needed [facility] 01-12-2023 Note Patient here for 6 m o follow up SOB, hypertension, and hyperlipidemia. She was restarted on amlodipine in Jul [address] Luke. Had labs in October 2022. Denies chest pain, SOB, and LE edema. Doing very well. She said Dr. Leayr decreased her metoprolol in September to 50mg bid. She thinks this was because she was c/o fatigue. She said it hasn't really changed since the decrease. Review of Systems Constitutional: Positive for malaise/fatigue. Musculoskeletal: Positive for arthritis, back pain and joint pain. Neurological: Positive for excessive daytime sleepiness and tremors. All other systems reviewed and are negative. [facility] 07-19-2022 Note Patient here for 2 m o follow up hypertension and hyperlipidemia. Says her SOB has resolved and she feels great. Denies chest pain. Review of Systems Neurological: Positive for tremors. All other systems reviewed and are negative. [facility] 07-19-2022 Note Cardiology Clinic No te Chief Complaint: New patient for abnormal stress test HPI: Judith Land is a 77 y.o. female with a past medical history including COPD, HTN, HLD, and Parkinson's. Patient was initially referred to Cardiology clinic for abnormal stress test. She presents today for follow-up. Patient states that she has been doing well. She denies any cardiac complaints or concerns. She states that her shortness of breath is significantly improved. She adamantly denies any chest pain. She states that she has been very active, she denies any limiting symptoms. Again, no chest pain or shortness of breath with activity. No dizziness or lightheadedness. No lower extremity edema, orthopnea, paroxysmal nocturnal dyspnea. Cardiology ROS: GENERAL: Denies fever, chills, night sweats, weight loss. HEENT: Denies changes in vision, photophobia, changes in hearing, epistaxis, oral bleeding. CARDIOVASCULAR: Denies chest pain, exertional dyspnea, orthopnea/PND, lower extremity edema, palpitations, lightheadedness/dizziness. RESPIRATORY: Denies SOB, coughing, wheezing GI: Denies abdominal pain, nausea/vomiting, heartburn, melena/hematochezia. RENAL: Denies dysuria, hematuria, flank pain. MSK: Denies muscle weakness/pain, arthralgias/joint pain. NEUROLOGIC: Denies LOC, weakness, numbness, headaches. SKIN: Denies abnormal rashes or bleeding. PSYCH: Denies significant anxiety, depression, sleep disturbances. Past Medical History She has a past medical history of COPD (chronic obstructive pulmonary disease) ([facility]), Hyperlipidemia, Hypertension, and Parkinson disease ([facility]). Surgical History She has a past surgical history that includes Foot surgery; Hysterectomy; and Cardiac catheterization. Social History She reports that she quit smoking about 5 years ago. Her smoking use included cigarettes. She has never used smokeless tobacco. She reports that she does not drink alcohol. No history on file for drug use. Family History Family History Problem Relation Name Age of Onset Stroke Mother Stroke Brother Other (cabg) Mother's Sister Coronary artery disease Mother's Sister Stroke Maternal Grandmother Medications Current Outpatient Medications on File Prior to Visit Medication Sig Dispense Refill ALPRAZolam (Xanax) 1 mg tablet in the morning. aspirin 325 mg EC tablet in the morning. carbidopa-levodopa (Sinemet) 25-100 mg tablet in the morning. cholecalciferol (Vitamin D-3) 50 MCG (2000 UT) tablet Take 2,000 Units by mouth in the morning. isosorbide mononitrate ER (Imdur) 60 mg 24 hr tablet Take 60 mg by mouth in the morning. Klor-Con M20 20 mEq ER tablet Take 20 mEq by mouth in the morning and at bedtime. lisinopriL-hydrochlorothiazide 20-25 mg tablet Take 1 tablet by mouth in the morning. metoprolol tartrate (Lopressor) 100 mg tablet Take 100 mg by mouth in the morning and at bedtime. pravastatin (Pravachol) 20 mg tablet Take 20 mg by mouth at bedtime. No current facility-administered medications on file prior to visit. Allergies Sulfa (sulfonamide antibiotics) Physical Exam VITAL SIGNS: BP 157/82 (BP Location: Left arm, Patient Position: Sitting) Pulse 62 Ht 1.676 m (5' 6 ) Wt 51.7 kg (114 lb) SpO2 96% BMI 18.40 kg/m??? Constitutional: Well developed, Well nourished, No acute distress, Non-toxic appearance. HENT: Normocephalic, Atraumatic, Bilateral external ears have normal appearance, Bilateral TMs clear, Oropharynx moist, No oral or pharyngeal exudates, Nose appears normal, nares are patent. Eyes: PERRLA, EOMI, Conjunctiva normal, No discharge. Neck: Normal range of motion, No tenderness, Supple, No stridor. No cervical lymphadenopathy noted. Cardiovascular: Normal heart rate, Normal rhythm, No murmurs, No rubs, No gallops. Thorax & Lungs: Normal breath sounds, No respiratory distress, No wheezing, No chest tenderness to palpation. Abdomen: Bowel sounds normal, Soft, Nontender, No masses, No pulsatile masses. Skin: Warm, Dry, No erythema, No rash. Back: No tenderness, No CVA tenderness. Extremities: Intact distal pulses, No edema, No tenderness, No cyanosis, No clubbing. Musculoskeletal: Good range of motion in all major joints with 5/5 muscle strength in all muscle groups, No tenderness to palpation or major deformities noted. Neurologic: Alert & oriented x 3, Normal motor function in all major muscle groups, Normal sensory function to all major dermatomes, No focal deficits noted. Psychiatric: Affect normal, Judgment normal, Mood normal. EKG results: No results found for this or any previous visit (from the past 4464 hour(s)). Echo results: No echocardiogram results found for the past 12 months Radiology: XR chest 1 view Narrative: [facility] Department of Radiology [address] [place] [id number] (more content not included)... [facility] 05-31-2022 Note New patient here to establish care. Ref from Dr. Leary for abnormal stress test. She used to see [facility] cardiology back in 2014 for hypertension and hyperlipidemia. Says she had a normal heart cath in the early . Was recently discharged from [facility] for acute systolic heart failure. Budesonide treatments do help her SOB. Denies chest pain and LE edema. Does not see pulmonology for COPD. Review of Systems Cardiovascular: Positive for dyspnea on exertion. Respiratory: Positive for shortness of breath. All other systems reviewed and are negative. [facility] 05-31-2022 Note Cardiology Clinic No te Chief Complaint: New patient for abnormal stress test HPI: Judith Land is a 77 y.o. female with a past medical history including COPD, HTN, HLD, and Parkinson's. Patient was referred to Cardiology clinic for abnormal stress test. Patient was hospitalized for COPD exacerbation. Outpatient stress test was performed after her discharge from the hospital. Patient adamantly denies any cardiac complaints or concerns prior to her presentation to the hospital. She states that her shortness of breath was similar to that she has had previously with her COPD. Lexiscan myocardial perfusion scan was performed. Patient was noted to have ST depressions after Lexiscan injection, and reported symptoms. She states that her symptoms were purely shortness of breath. She denies having any chest pain. Nuclear myocardial perfusion scan demonstrated no perfusion abnormalities, as per report. Today, patient states that she has done well since her discharge. She adamantly denies any chest pain or shortness of breath. She denies any lower extreme edema and orthopnea, paroxysmal nocturnal dyspnea. She denies any near-syncope or syncope. No dizziness or lightheadedness. Patient denies any previous history of CVA, PVD, DM, HTN, Depressed LVEF, and CAD. Cardiology ROS: GENERAL: Denies fever, chills, night sweats, weight loss. HEENT: Denies changes in vision, photophobia, changes in hearing, epistaxis, oral bleeding. CARDIOVASCULAR: Denies chest pain, exertional dyspnea, orthopnea/PND, lower extremity edema, palpitations, lightheadedness/dizziness. RESPIRATORY: Denies SOB, coughing, wheezing GI: Denies abdominal pain, nausea/vomiting, heartburn, melena/hematochezia. RENAL: Denies dysuria, hematuria, flank pain. MSK: Denies muscle weakness/pain, arthralgias/joint pain. NEUROLOGIC: Denies LOC, weakness, numbness, headaches. SKIN: Denies abnormal rashes or bleeding. PSYCH: Denies significant anxiety, depression, sleep disturbances. Past Medical History She has a past medical history of COPD (chronic obstructive pulmonary disease) ([facility]), Hyperlipidemia, Hypertension, and Parkinson disease ([facility]). Surgical History She has a past surgical history that includes Foot surgery; Hysterectomy; and Cardiac catheterization. Social History She reports that she quit smoking about 5 years ago. Her smoking use included cigarettes. She has never used smokeless tobacco. She reports that she does not drink alcohol. No history on file for drug use. Family History Family History Problem Relation Name Age of Onset Stroke Mother Stroke Brother Other (cabg) Mother's Sister Coronary artery disease Mother's Sister Stroke Maternal Grandmother Medications Current Outpatient Medications on File Prior to Visit Medication Sig Dispense Refill ALPRAZolam (Xanax) 1 mg tablet in the morning. aspirin 325 mg EC tablet in the morning. carbidopa-levodopa (Sinemet) 25-100 mg tablet in the morning. cholecalciferol (Vitamin D-3) 50 MCG (2000 UT) tablet Take 2,000 Units by mouth in the morning. isosorbide mononitrate ER (Imdur) 60 mg 24 hr tablet Take 60 mg by mouth in the morning. Klor-Con M20 20 mEq ER tablet Take 20 mEq by mouth in the morning and at bedtime. lisinopriL-hydrochlorothiazide 20-25 mg tablet Take 1 tablet by mouth in the morning. metoprolol tartrate (Lopressor) 100 mg tablet Take 100 mg by mouth in the morning and at bedtime. pravastatin (Pravachol) 20 mg tablet Take 20 mg by mouth at bedtime. No current facility-administered medications on file prior to visit. Allergies Sulfa (sulfonamide antibiotics) Physical Exam VITAL SIGNS: BP 123/73 (BP Location: Left arm, Patient Position: Sitting) Pulse 71 Ht 1.676 m (5' 6 ) Wt 49.9 kg (110 lb) SpO2 92% BMI 17.75 kg/m??? Constitutional: Well developed, Well nourished, No acute distress, Non-toxic appearance. HENT: Normocephalic, Atraumatic, Bilateral external ears have normal appearance, Bilateral TMs clear, Oropharynx moist, No oral or pharyngeal exudates, Nose appears normal, nares are patent. Eyes: PERRLA, EOMI, Conjunctiva normal, No discharge. Neck: Normal range of motion, No tenderness, Supple, No stridor. No cervical lymphadenopathy noted. Cardiovascular: Normal heart rate, Normal rhythm, No murmurs, No rubs, No gallops. Thorax & Lungs: Normal breath sounds, No respiratory distress, No wheezing, No chest tenderness to palpation. Abdomen: Bowel sounds normal, Soft, Nontender, No masses, No pulsatile masses. Skin: Warm, Dry, No erythema, No rash. Back: No tenderness, No CVA tenderness. Extremities: Intact distal pulses, No edema, No tenderness, No cyanosis, No clubbing. Musculoskeletal: Good range of motion in all major joints with 5/5 muscle strength in all muscle groups, No tenderness to palpation or major deformities noted. Neurologic: Alert & oriented x 3, Normal motor function in all (more content not included)... [facility] 08-04-2020 Note Patient Outreach ([place] VAM[facility]) -------- JUDITH LAND ([id number]) 1945 F Date Time Provider Department 08/04/20 WEATHERS, EMETERIO SOOD During your visit today, we recorded the following information about you: Allergies As of Date: 08/04/2020 Noted Allergy Reaction ALEVE (NAPROXEN SODIUM) 07/02/2013 16 - Unknown SULFA (SULFONAMIDE ANTIBIOTICS) 07/02/2013 10 - Anaphylaxis Date Reviewed: 03/23/2020 Reviewed by: Ashley Stephens Ma - Fully Assessed Order(s):SARS-COVID VACCINE 1ST DOSE APPT [[id number]] Order #: [id number] FUTURE Prescriptions as of 08/04/2020 Sig: ASPIRIN 81 MG TABLET,DELAYED * Take 1 tablet by mouth once d* METOPROLOL TARTRATE 100 MG TA* Take 100 mg by mouth twice da* PRAVASTATIN 20 MG TABLET Take 20 mg by mouth once alex* LISINOPRIL 20 MG-HYDROCHLOROT* Take 1 tablet by mouth once d* ALPRAZOLAM 1 MG TABLET Take 1 mg by mouth at bedtime* POTASSIUM CHLORIDE ER 10 MEQ * Take 20 mEq by mouth once maty* AMLODIPINE ORAL Take 10 mg by mouth once alex* CARBIDOPA ER 25 MG-LEVODOPA 1* Take 1 tablet by mouth once d* FOLIC ACID ORAL Take 800 mg by mouth once maty* CHOLECALCIFEROL (VITAMIN D3) * Take 2,000 Units by mouth onc* VITAMIN DAILY ORAL Take by mouth once daily. CALCIUM 600 ORAL Take by mouth twice daily. OMEGA 3 FISH OIL ORAL Take by mouth. OMEGA-3 FISH OIL ORAL Take 1,200 mg by mouth twice * Problem List As Of Date 08/04/2020 Noted Resolved Hypertension [I10] 07/02/2013 Pre-operative cardiovascular exam, new EKG abno*07/02/2013 Hyperlipidemia [E78.5] 06/18/2014 UPJ (ureteropelvic junction) obstruction [N13.5]02/20/2020 Renal stone [N20.0] 02/20/2020 Ureteral stricture [N13.5] 03/23/2020 History of recurrent UTI (urinary tract infecti*03/23/2020 Encounter Status:Closed by EPIC, PRODUSER on 08/09/20 [facility] Evaluation note No assessment information availa [facility] Work Phone: Summary Purpose Family History No Family History Records FoundNo Family History Records FoundNo Family History Records FoundNo Family History Records FoundNo Family History Records FoundNo Family History Records FoundNo Family History Records Found Advance Directives No Advanced Directives Records Found Advance Directive Response Recorded Date/ Time Advance Directives No November 12 9 1:56pm Chief Complaint and Reason for Visit Chief Complaint G24.9 R27.0 Additional Source Comments INFORMATION SOURCE (unrecogn ized section and content) DATE CREATED AUTHOR 11/30/2017 [facility] DATE CREATED AUTHOR AUTHOR'S ORGANIZ ATION 03/26/2020 [facility] DATE CREATED AUTHOR AUTHOR'S ORGANIZ ATION 06/19/2021 [facility] DATE CREATED AUTHOR AUTHOR'S ORGANIZ ATION 10/13/2022 [facility] DATE CREATED AUTHOR AUTHOR'S ORGANIZ ATION 01/13/2023 [facility] DATE CREATED AUTHOR AUTHOR'S ORGANIZ ATION 05/23/[address] [facility] Care Teams (unrecognized sec tion and content) Team Status: Active Member Role Status Dates Rodrick Leary MD Primary Care Provider Active Team Status: Inactive Member Role Status Dates Rodrick Leary MD Primary Care Provider Active DIXIE Eng Attending Provider Active Goals (unrecognized section and content) Goals may be documented in a n alternate section FOR RECORDS PERTAINING TO PATIENTS WHO ARE OR HAVE BEEN ENROLLED IN A CHEMICAL DEPENDENCY/SUBSTANCEABUSE PROGRAM, SOME INFORMATION MAY BE OMITTED. This clinical summary was aggregated from multiple sources. Caution should be exercised in using it in the provision of clinical care. This summary normalizes information from multiple sources, and as a consequence, information in this document may materially change the coding, format and clinical context of patient data. In addition, data may be omitted in some cases. CLINICAL DECISIONS SHOULD BE BASED ON THE PRIMARY CLINICAL RECORDS. [facility]. provides no warranty or guarantee of the accuracy or completeness of information in this document.
--- NOTE | 2023-06-01 13:33 | CA_ITS ---
Patient Name Site Name NANCY KHAN [facility] Account No Medical Record Number Age Sex Date Time [id number] [facility]:[id number] F 06/01/2022 13:13 At the Request Of GIOVANNI GILL ECHOCARDIOGRAM REPORT PROCEDURE: CA ECHO DOPPLER COMPLETE INDICATIONS: Cerebral infarction, hypertension COMPARISON: None. DESCRIPTION: COMPLETE ECHOCARDIOGRAM Real-time transthoracic echocardiography with 2D, M-mode, spectral and color flow Doppler performed. QUALITY: Technical quality was good. 66 , 124#, BSA 1.63 m2 LEFT VENTRICLE: Normal chamber size. Thickened septal wall. Normal systolic function. LV EF: Normal left ventricular ejection fraction, (60%). DIASTOLIC: Normal diastolic function. ATRIAL SEPTUM: Visually appears intact. LEFT ATRIUM: There is evidence of compression of the lateral wall of the left atrium likely related to presence of a large hiatal hernia. RIGHT ATRIUM: Normal chamber size. RIGHT VENTRICLE: Normal chamber size. Normal right ventricular systolic function. TRICUSPID VALVE: Normal mobility and thickness. No stenosis with trivial regurgitation. No evidence of pulmonary hypertension. RVSP 28 mmHg MITRAL VALVE: Normal mobility and thickness. No evidence of mitral valve stenosis. There is no mitral annular calcification. No mitral regurgitation. AORTIC VALVE: Normal trileaflet appearance. Thickened aortic valve. Normal leaflet mobility. No evidence of aortic valve stenosis. No aortic regurgitation. AORTIC ROOT: Normal diameter and appearance. PULMONIC VALVE: Normal thickness and mobility. No stenosis. Trivial regurgitation. PERICARDIUM: No evidence of pericardial effusion. IVC: Collapses with inspirations. IVC is normal in size. PLEURA: CONCLUSION: 1. Normal ventricular function. LVEF is 60%. 2. No significant valvular dysfunction. 3. Normal right-sided pressures. 4. There is evidence of compression of the lateral wall of the left atrium likely related to presence of a large hiatal hernia. Further dedicated imaging is recommended. Adult Echocardiography Procedure Report Left Ventricle LVEDD (3.7 - 5.6 cm): 4.55 cm LVESD (2.2 - 4.0 cm): 3.32 cm LVIVS thickness (0.6 - 1.2 cm): 1.23 cm LVPW thickness (0.5 - 1.0 cm): 0.86 cm e': 0.11 m/s E - e': 6.11 LVOT Max Gradient: 2.99 mm[Hg] LVOT Area (cm2): 0.86 m/s Peak Velocity (LVOT): 0.86 m/s Mean Velocity (LVOT): 0.57 m/s LVOT Diameter 2.49 cm Left Atrium LA Volume Index (2D A2C): 25.89 ml/m2 Left Atrium Systolic Dimension: 2.65 cm Mitral Valve MV E to A Ratio: 0.82 Mitral Valve A-Wave Peak Velocity: 0.84 m/s Mitral Valve E-Wave Peak Velocity: 0.68 m/s Right Ventricle Aorta AO Root Diam: 3.48 cm Ascending Ao Diam: 2.12 cm Aortic Valve AoV Area (Peak Noe): 2.78 cm2, 2.78 cm2 AoV Area (VTI): 2.86 cm2, 2.86 cm2 Peak Velocity(Antegrade Flow): 1.51 m/s Peak Gradient(Antegrade Flow): 9.16 mm[Hg] Mean Velocity(Antegrade Flow): 1.01 m/s Mean Gradient(Antegrade Flow): 4.64 mm[Hg] Velocity Time Integral: 28.22 cm Tricuspid Valve Peak Velocity (Regurgitant Flow): 2.85 m/s, 2.51 m/s Pulmonic Valve Peak Velocity: 0.93 m/s Peak Gradient: 4.42 mm[Hg], 2.56 mm[Hg] Right Atrium Right Atrium Systolic Pressure: 15.65 ml, 15.65 ml Dictated by: Brian Pulido M.D. on 06/06/2023 at 18:39 Approved by: Brian Pulido M.D. on 06/06/2023 at 18:49
== END 2023-06-01 12:53 | disposition home or self-care (01) ==
LOC: CARD 12:52
PROVIDERS: PCP Family Medicine; Visit Provider Nurse Practitioner Family
DX: Z86.73 Personal history of transient ischemic attack (TIA), and cerebral infarction without residual deficits (principal)
CPT/HCPCS: 93306

== ENCOUNTER 2023-07-27 07:24 | Outpatient (RCR) | payer MEDICARE, OTHER, SELFPAY | END 2023-11-09 13:29 | disposition home or self-care (01) | LOC: PT 07:24 | PROVIDERS: PCP Family Medicine; Visit Provider Nurse Practitioner Family | DX: G20.C Parkinsonism, unspecified (principal); R26.89 Other abnormalities of gait and mobility; R26.9 Unspecified abnormalities of gait and mobility; R29.3 Abnormal posture | CPT/HCPCS: 97110; 97112; 97162; 97530 ==

== ENCOUNTER 2023-07-30 11:19 | Outpatient (OUT) | payer MEDICARE, OTHER, SELFPAY ==
--- OUTSIDE RECORDS SUMMARY | 2023-07-30 11:27 | XMS_ITS | CCD ---
Author Name Unknown Address [address] [place] [address] Organization [facility] Care Team Providers Care Whipped Topping Supervisor Name Role Phone SELF, REFERRED Unavailable Unavailable SELF, REFERRED Unavailable Unavailable BRAMOS, ATHANASIOS Unavailable Unavailable SUPA MAY Unavailable Unavailable [place] Unavailable Unavailable BRAMOS, ATHANASIOS Unavailable Unavailable [place] Unavailable Unavailable SUPA MAY Unavailable Unavailable PHYSICIAN, DEFAULT Unavailable Unavailable PHYSICIAN, DEFAULT Unavailable Unavailable SELF, REFERRED Unavailable Unavailable PHYSICIAN, DEFAULT Unavailable Unavailable PHYSICIAN, DEFAULT Unavailable Unavailable PAY ., DR DOUGLAS Admitting Unavailable ZIMARC, DR RAMIRO Gates Consulting Unavailable HOY ., [...] Unavailable YULISSA TALBERT Consulting Unavailable SUPA LOZANO Consulting Unavailable SHAIKH Zoltan TOM Consulting Unavailable SUPA DEAN Consulting Unavailable FLAQUITA ., DR MENSAH Primary Care Unavailable PUMAER, DR RAMIRO Gates Consulting Unavailable BALJEET RAO Attending Unavailable BALJEET RAO Admitting Unavailable BALJEET RAO Consulting Unavailable HOY ., DR MENSAH Admitting Unavailable HOY ., DR MENSAH Attending Unavailable HOY ., DR MENSAH Consulting Unavailable HOY ., DR MENSAH Primary Care Unavailable HOY ., DR MENSAH Admjocelyn Unavailable HOY ., DR MENSAH Attending Unavailable HOY ., DR MENSAH Consulting Unavailable FLAQUITA ., DR MENSAH Primary Care Unavailable JOHANNA, DR RAMIRO Gates Consulting Unavailable MD Rodrick Sams Primary Care Provider [phone] DIXIE Reid Attending Provider Cathie Reid Attending Unavailable Cathie Reid Admitting Unavailable Rodrick Sams Primary Care Unavailable Rodrick Sams Primary Care Physician Elian Quigley Unavailable Unavailable COOPER ROWLEY Attending Unavailable STEPHENIE PRECIADO Attending Unavailable COOPER ROWLEY Attending Unavailable Mela Espinal Admitting Unavailable Haile CASTRO Attending Unavailable [place], Ramiro Consulting Unavailable [place], Ramiro Consulting Unavailable [place], Ramiro Consulting Unavailable [place], Ramiro Consulting Unavailable [place], Ramiro Consulting Unavailable [place], Ramiro Consulting Unavailable [place], Ramiro Consulting Unavailable [place], Ramiro Consulting Unavailable [place], Ramiro Consulting Unavailable Demarco Beaver. Attending Unavailable Allergies Allergy Classification Reported Allergen(s) Allergy Type Date of Onset Reaction(s) Facility (4 sources) Sulfonamides (Antibiotic); 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: [SULFA (SULFONAMIDE ANTIBIOTICS)] Drug allergy (disorder) 4 [facility] Repository (1 source) Cephalexin Drug Allergy 2 [facility] Repository (1 source) Unable to Assess Drug allergy (disorder) 3 [facility] Repository (2 sources) Sulfonamides (Antibiotic); 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: [sulfa drugs] Drug allergy Unknown (qualifier value) [facility] Medications Current Medications Medication Drug Class(es) Dates Sig (Normalized) Sig (Original) ALPRAZolam 1 mg oral tablet (1 source) Benzodiazepine Start: 02-10-2020 alprazolam 1 mg Tab 1 mg = 1 tab(s), Oral, PRN for anxiety Start Date: 02/10/20 Status: Ordered amLODIPine 10 mg oral tablet (1 source) Dihydropyridine Calcium Channel Mesfin Start: 02-10-2020 take 1 tablet by mouth once daily amLODIPine 10 mg Tab 10 mg = 1 tab(s), Oral, Daily Start Date: 02/10/20 Status: Ordered aspirin 81 mg oral tablet (1 source) Platelet Aggregation Inhibitor, Nonsteroidal Anti-inflammatory Drug Start: 02-10-2020 take 1 tablet by mouth once daily aspirin 81 mg oral tablet 81 mg = 1 tab(s), Oral, Daily Start Date: 02/10/20 Status: Ordered cephalexin 500 mg oral capsule (1 source) Cephalosporin Antibacterial Start: 06-23-2023 End: 06-28-2023 take 1 capsule by mouth three times daily Keflex 500 mg Cap 500 mg = 1 cap(s), Oral, TID, X 5 day(s), # 15 cap(s), Refills(s) 0, Pharmacy: [facility]/pharmacy #[id number], 167, cm, 06/23/23 1:52:00 EST, Height/Length Dosing, 56.3, kg, 06/23/23 1:52:00 EST, Weight Dosing Start Date: 06/23/23 Stop Date: 06/28/23 Status: Ordered ciprofloxacin 500 mg oral tablet (1 source) Quinolone Antimicrobial Start: 02-25-2020 Cipro 500 mg Tab See Instructions, Take 1 tab day prior to procedure and 1 tab day of procdure - afterwards, # 2 tab(s), Refills(s) 0, Pharmacy: [facility]/pharmacy #[id number], 167, cm, 02/10/20 14:06:00 EDT, Height/Length Dosing, 52, kg, 02/10/20 14:06:00 EDT, Weight Dosing Start Date: 02/25/20 Status: Ordered Daily Multiple for Women 50+ oral tablet (1 source) Start: 02-10-2020 take 1 tablet by mouth once daily Daily Multiple for Women 50+ oral tablet 1 tab(s), Oral, Daily Start Date: 02/10/20 Status: Ordered hydroCHLOROthiazide 25 mg / lisinopril 20 mg oral tablet (1 source) Thiazide Diuretic, Angiotensin Converting Enzyme Inhibitor Start: 02-10-2020 take 2 tablets by mouth once daily hydrochlorothi azide-lisinopr il 25 mg-20 mg Tab 2 tab(s), Oral, Daily Start Date: 02/10/20 Status: Ordered Misc Medication (1 source) Start: 02-10-2020 Misc Medication calcium +D3 Start Date: 02/10/20 Status: Ordered pravastatin sodium 20 mg oral tablet (1 source) HMG-CoA Reductase Inhibitor Start: 02-10-2020 take 1 tablet by mouth once daily Pravachol 20 mg Tab 20 mg = 1 tab(s), Oral, Daily Start Date: 02/10/20 Status: Ordered Completed/Discontinued Medications Medication Drug Class(es) Dates Sig (Normalized) Sig (Original) potassium chloride 20 meq extended release oral tablet (1 source) Start: 02-10-2020 take 2 tablets by mouth once daily potassium chloride 20 mEq ER Tab 40 mEq = 2 tab(s), Oral, Daily Start Date: 02/10/20 Status: Ordered Problems Active Problems Problem Classification Problem Date Documented Da te Episodic/Chronic Anxiety disorders (1 source) Anxiety disorder, unspecified; 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: [ANXIETY DISORDER, UNSPECIFIED] Onset: 08-11-2017 Chronic Chronic obstructive pulmonary disease and bronchiectasis (7 sources) Chronic obstructive pulmonary disease, unspecified; 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: [Chronic obstructive pulmonary disease with (acute) exacerbation] Onset: 08-11-2017 Chronic Congestive heart failure; nonhypertensive (2 sources) Unspecified diastolic (congestive) heart failure; 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: [Acute systolic (congestive) heart failure] Onset: 05-22-2022 Chronic Deficiency and other anemia (1 source) Anemia, unspecified; 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: [ANEMIA UNSPECIFIED] Onset: 10-12-2022 Episodic Diabetes mellitus without complication (1 source) Type 2 diabetes mellitus without complications; 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: [TYPE 2 DIABETES MELLITUS WITHOUT COMPLICATIONS] Onset: 08-11-2017 Chronic Disorders of lipid metabolism (7 sources) Hyperlipidemia, unspecified; 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: [Pure hypercholesterolemia , unspecified] Onset: 08-11-2017 Chronic Essential hypertension (7 sources) Essential (primary) hypertension; 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: [Essential hypertension] Onset: 08-11-2017 Chronic External Injury - Fall (1 source) Unspecified fall, initial encounter; 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: [UNSPECIFIED FALL, INITIAL ENCOUNTER] Onset: 08-11-2017 Hypertension with complications and secondary hypertension (3 sources) Hypertensive heart disease with heart failure; 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: [Hypertensive heart disease without heart failure] Onset: 07-19-2022 Chronic Malaise and fatigue (2 sources) Weakness; 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: [Asthenia] Onset: 05-22-2022 Episodic Nutritional deficiencies (3 sources) Unspecified protein-calorie malnutrition; 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: [Vitamin D deficiency, unspecified] Onset: 08-11-2017 Chronic Other diseases of kidney and ureters (1 source) Hydronephrosis 02-10-2020 Episodic Other diseases of kidney and ureters (1 source) Kidney disease 02-10-2020 Episodic Other diseases of kidney and ureters (1 source) Obstruction of pelviureteric junction 02-10-2020 Episodic Other hereditary and degenerative nervous system conditions (1 source) Dystonia, unspecified; 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: [Dystonia, unspecified] Onset: 05-15-2023 Chronic Other lower respiratory disease (1 source) Hypoxemia; 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: [Hypoxemia] Onset: 06-23-2023 Episodic Other lower respiratory disease (1 source) History of chronic lung disease 02-10-2020 Episodic Other nutritional; endocrine; and metabolic disorders (2 sources) Hypocalcemia; 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: [Other disorders of phosphorus metabolism] Onset: 08-11-2017 Chronic Other screening for suspected conditions (not mental disorders or infectious disease) (1 source) Blood chemistry abnormal; 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: [Other specified abnormal findings of blood chemistry] Onset: 06-23-2023 Episodic Parkinson's disease (3 sources) Parkinson's disease; 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: [Parkinson's disease] Onset: 08-11-2017 06-23-2023 Chronic Residual codes; unclassified (1 source) Insomnia, [...] DISORDERS] Onset: 08-11-2017 Chronic 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) Parkinson's disease; 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: [Parkinson's disease without dyskinesia, without mention of fluctuations] Onset: 06-23-2023 Chronic 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) MCC (current) use of oral hypoglycemic drugs; 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: [LONG-TERM (CURRENT) USE OF ORAL HYPOGLYCEMIC DRUGS] Onset: 08-11-2017 Unclassified (2 sources) Unknown / UNK(Unknown) Onset: 08-11-2017 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) PERSONAL HISTORY OF COVID-19; 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: [PERSONAL HISTORY OF COVID-19] Onset: 05-22-2022 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) UNVACCINATED FOR COVID-19; 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: [UNVACCINATED FOR COVID-19] Onset: 05-22-2022 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) CONTACT W/AND (SUSP) EXPOS COVID-19; 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: [CONTACT W/AND (SUSP) EXPOS COVID-19] Onset: 05-22-2022 Urinary tract infections (2 sources) Urinary tract infection, site not specified; 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: [Urinary tract infectious disease] Onset: 03-31-2022 Episodic Past or Other Problems Problem Classification Problem [...] unspecified; 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: [ILEUS, UNSPECIFIED] Onset: 08-11-2017 Episodic Nausea and vomiting (1 source) Nausea; 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: [NAUSEA] Onset: 03-31-2022 Episodic Nonspecific chest pain (4 sources) Chest pain, unspecified; 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: [CHEST PAIN UNSPECIFIED] Onset: 05-24-2022 Episodic Other aftercare (2 sources) 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 inspector (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) use of 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; 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: [LONG-TERM (CURRENT) USE OF ASPIRIN] Onset: 08-11-2017 Episodic Other aftercare (1 source) Other petroleum terminal plant operator (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 Sd BRIGGS, Demarco Mccord FINAL REPORTS Final Report [] Verified Date/Time: 07/18/2023 10:53 EST <10,000 cfu/ml Mixed skin contaminants Mixed nida (multiple species present) Performing Locations R1: This test was performed at: [facility], [address] [place] [address], [phone] , [place], Normal [facility] Comment on above: Performed By: #### 2 [id number], [id number] #### [facility] [address] [place] [address] BMPon 07-16-2023 Anion gap [Moles/Vol] 14 mmol/L Normal 6-16 [facility] Comment on above: Performed By: #### 2 [id number], [id number] #### [facility] [address] [place] [address] BUN/Creat Ratio 22 No Units High 10-20 [facility] Comment on above: Performed By: #### 2 [id number], [id number] #### [facility] [address] [place] [address] Calcium [Mass/Vol] 11.6 mg/dL High 8.9-11.1 [facility] Comment on above: Performed By: #### 2 [id number], [id number] #### [facility] [address] [place] [address] Chloride [Moles/Vol] 105 mmol/L Normal 101-111 [facility] Comment on above: Performed By: #### 2 [id number], [id number] #### [facility] [address] [place] [address]9413 CO2 [Moles/Vol] 26 mmol/L Normal 21-[address] [facility] Comment on above: Performed By: #### 2 [id number], [id number] #### [facility] [address] [place] [address] Creatinine [Mass/Vol] 0.9 mg/dL Normal 0.5-1.3 [facility] Comment on above: Performed By: #### 2 770596, [id number] #### [facility] [address] [place] [address] Glucose [Mass/Vol] 87 mg/dL Normal 55-199 [facility] Comment on above: Performed By: #### 2 [id number], [id number] #### [facility] [address] [place] [address] Potassium [Moles/Vol] 4.0 mmol/L Normal 3.5-5.3 [facility] Comment on above: Performed By: #### 2 465150, [id number] #### [facility] [address] [place] [address] Sodium [Moles/Vol] 141 mmol/L Normal 135-145 [facility] Comment on above: Performed By: #### 2 811879, [id number] #### [facility] [address] [place] [address] Urea nitrogen [Mass/Vol] 20 mg/dL Normal 5-21 [facility] Comment on above: Performed By: #### 2 640253, [id number] #### [facility] [address] [place] [address] CBC w/ Auto Diffon 4 Basophil Absolute 0.1 E9/L Normal 0.0-0.2 [facility] Comment on above: Performed By: #### 2 304909, [id number] #### [facility] [address] [place] [address] Basophils/100 WBC (Bld) 1.1 % Normal 0.0-2.0 [facility] Comment on above: Performed By: #### 2 314562, [id number] #### [facility] [address] [place] [address] Eos Absolute 0.2 E9/L Normal 0.0-0.5 [facility] Comment on above: Performed By: #### 2 245520, [id number] #### [facility] [address] [place] [address] Eosinophils/100 WBC (Bld) 1.7 % Normal 0.0-8.0 [facility] Comment on above: Performed By: #### 2 829746, [id number] #### [facility] [address] [place] [address] Erythrocyte distribution width (RBC) [Ratio] 13.5 % Normal 10.9-14.2 [facility] Comment on above: Performed By: #### 2 718106, [id number] #### [facility] [address] [place] [address] Hematocrit (Bld) [Volume fraction] 43.0 % Normal 34.0-46.0 [facility] Comment on above: Performed By: #### 2 032415, [id number] #### [facility] [address] [place] [address] Hemoglobin (Bld) [Mass/Vol] 14.3 g/dL Normal 12.0-16.0 [facility] Comment on above: Performed By: #### 2 191445, [id number] #### [facility] [address] [place] [address] Lymph Absolute 3.4 E9/L Normal 1.0-4.0 [facility] Comment on above: Performed By: #### 2 188813, [id number] #### [facility] [address] [place] [address] Lymphocytes/100 WBC (Bld) 38.0 % Normal 14.0-50.0 [facility] Comment on above: Performed By: #### 2 579808, [id number] #### [facility] [address] [place] [address] MCH (RBC) [Entitic mass] 30.9 pg Normal 27.0-34.0 [facility] Comment on above: Performed By: #### 2 651418, [id number] #### [facility] [address] [place] [address] MCHC (RBC) [Mass/Vol] 33.0 g/dL Normal 31.4-36.0 [facility] Comment on above: Performed By: #### 2 088529, [id number] #### [facility] [address] [place] [address] MCV (RBC) [Entitic vol] 93.5 fL Normal 80.0-100.0 [facility] Comment on above: Performed By: #### 2 167567, [id number] #### [facility] [address] [place] [address] [place] Absolute 1.2 E9/L High 0.2-1.0 [facility] Comment on above: Performed By: #### 2 542692, [id number] #### [facility] [address] [place] [address] Monocytes/100 WBC (Bld) 12.9 % Normal 4.0-14.0 [facility] Comment on above: Performed By: #### 2 439399, [id number] #### [facility] [address] [place] [address] Neutro Absolute 4.2 E9/L Normal 2.0-7.[address] [facility] Comment on above: Performed By: #### 2 040902, [id number] #### [facility] [address] [place] [address] Neutro Auto 46.3 % Normal 36.0-75.0 [facility] Comment on above: Performed By: #### 2 385543, [id number] #### [facility] [address] [place] [address] Platelet 325.0 E9/L Normal 150.0-500.0 [facility] Comment on above: Performed By: #### 2 889792, [id number] #### [facility] [address] [place] [address] Platelet mean volume (Bld) [Entitic vol] 9.3 fL Normal 6.4-10.8 [facility] Comment on above: Performed By: #### 2 295570, [id number] #### [facility] [address] [place] [address] RBC 4.6 E12/L Normal 4.3-5.9 [facility] Comment on above: Performed By: #### 2 641003, [id number] #### [facility] [address] [place] [address] WBC 9.0 E9/L Normal 4.0-11.0 [facility] Comment on above: Performed By: #### 2 965281, [id number] #### [facility] [address] [place] [address] Consent for Treatmenton Consent for Treatment [id number] Normal [facility] Discharge Instructionson Discharge Instructions [id number] Normal [facility] ED Clinical Summaryon 2023 ED Clinical Summary (Inserted Image. Jenni ble to display) [address] [address] ED Clinical Summary Person Information Name: JUDITH KHAN [facility] Age: 78 Years : 1945 Sex: Female Language: Bolivian PCP: Rodrick Sams MD Marital Status: Visit Id: Visit Reason: Weakness or fatigue; arms feel heavy Speciality: Acuity: 3 Enc Type: Emergency Med Service: Emergency Arrival: 07/16/2023 11:33:16 Discharge: 07/16/2023 15:44:24 LOS: 000 04:11 Checkin: 07/16/2023 11:33:16 Checkout: 07/16/2023 15:44:24 Dispo Type: Home (Routine DC) EVENTS: Event Name Event Status Request Date/Time Start Date/Time Complete Date/Time Arrive Complete 07/16/2023 11:33:16 07/16/2023 11:33:16 07/16/2023 11:33:16 Document Home Meds Request 07/16/2023 11:33:16 Triage Complete 07/16/2023 11:33:16 07/16/2023 11:42:23 07/16/2023 11:42:23 Bed Assign Complete 07/16/2023 11:36:07 07/16/2023 11:36:07 07/16/2023 11:36:07 Dr Exam Complete 07/16/2023 11:36:07 07/16/2023 11:45:53 07/16/2023 11:45:53 RN Exam Complete 07/16/2023 11:36:07 07/16/2023 12:03:32 07/16/2023 12:03:32 EKG Complete 07/16/2023 11:41:02 07/16/2023 12:01:28 Pending Labs Complete 07/16/2023 11:45:06 07/16/2023 15:23:03 Lab Complete 07/16/2023 11:45:06 07/16/2023 13:15:49 Urine Collect Complete 07/16/2023 11:45:06 07/16/2023 13:15:49 Registration Complete 07/16/2023 11:45:53 07/16/2023 11:45:58 07/16/2023 11:45:58 Reg Complete Request 07/16/2023 11:45:58 Reg Bed Request Complete 07/16/2023 11:45:58 07/16/2023 11:45:58 07/16/2023 11:45:58 Dr Exam Complete 07/16/2023 11:49:34 07/16/2023 11:49:34 07/16/2023 11:49:34 Registration Request 07/16/2023 11:49:34 Pending Labs Complete 07/16/2023 11:56:26 07/16/2023 11:56:26 07/16/2023 12:13:53 Lab Complete 07/16/2023 11:56:26 07/16/2023 11:56:26 07/16/2023 12:13:53 Fall Risk Request 07/16/2023 12:03:33 Pending Labs Complete 07/16/2023 12:09:43 07/16/2023 12:09:43 07/16/2023 12:09:44 Pending Labs Inlab 07/16/2023 12:59:38 07/16/2023 12:59:38 Lab Inlab 07/16/2023 12:59:38 07/16/2023 12:59:38 Discharge Complete 07/16/2023 15:32:09 07/16/2023 15:44:31 07/16/2023 15:44:31 Transfer Complete 07/16/2023 15:44:31 07/16/2023 15:44:31 07/16/2023 15:44:31 ADDRESS: [address] [place] [id number] PHYS DOC NOTES: MEDICAL INFORMATION: Prescriptions Given: Medications to Continue with No Changes Other Medications alprazolam (alprazolam 1 mg Tab) 1 Tablets By Mouth as needed for anxiety. amlodipine (amLODIPine 10 mg Tab) 1 Tablets By Mouth every day. aspirin (aspirin 81 mg oral tablet) 1 Tablets By Mouth every day. ciprofloxacin (Cipro 500 mg Tab) Take 1 tab day prior to procedure and 1 tab day of procdure - afterwards. Refills: 0. hydrochlorothiazide-lisino pril (hydrochlorothiazide-lisin opril 25 mg-20 mg Tab) 2 Tablets By Mouth every day. multivitamin with minerals (Daily Multiple for Women 50+ oral tablet) 1 Tablets By Mouth every day. Non-Formulary Medication (Misc Medication) calcium +D3. potassium chloride (potassium chloride 20 mEq ER Tab) 2 Tablets By Mouth every day. pravastatin (Pravachol 20 mg Tab) 1 Tablets By Mouth every day. PATIENT EDUCATION INFORMATION: Instructions: Weakness Follow up: With: Address: When: Rodrick Sams [address] [place] [address] Business (1) In 3 days 07/19/2023 DIAGNOSIS: Weakness Normal [facility] ED Note-Physicianon 07-16-19 ED Note-Physician Basic Information Time Seen: Leighton Fernandes PA-C 07/16/2023 11:45 Chief Complaint hx of parkinsons. pt states that today her bilateral arms feel heavy. she states that they feel empty. has had this happen before where her K was low. pt feels increasingly weak today. History of Present Illness 78-year-old female comes to the ED for evaluation of generalized weakness. She states today she woke up feeling generally weak. She feels like her arms are heavy. No unilateral findings. No headache or visual changes. She states the last time she had this she was found to have UTI with low potassium. No headache or visual changes. No chest pain or shortness of breath. No fever, chills, nausea, vomiting. No falls or injuries. Review of Systems A 10 point review of systems is negative except as noted above. Medical and Surgical History: Reviewed and noted Social history: Lives at home Tobacco: Denies Physical Exam Vitals & Measurements T: 36.6 ?C(Oral) HR: 117(Monitored) RR: 19 BP: 166/99 SpO2: 94% HT: 167 cm WT: 54.2 kg BMI: 19.43 nurses notes and vital signs reviewed and patient is not hypoxic. General: The patient appears well and in no significant distress Patient is resting comfortably on the exam bed. Skin: Warm, dry, no pallor noted. Head: Atraumatic. Neck: No JVD. Eye: Normal conjunctiva. Ears, Nose, Mouth, and Throat: Moist mucous membranes Cardiovascular: Strong distal pulses. Chest wall: Respiratory: Respirations are nonlabored. Back: Normal range of motion, no CVA tenderness. Musculoskeletal: Normal ROM with no gross deformity. Gastrointestinal: Soft and nontender. Urological: Neurological: Awake and alert. No focal deficits. Follows commands. GCS 15. Chronic resting tremors Psychiatric: Cooperative. Medical Decision Making Patient returns with generalized weakness. She has no neurological deficit or focal finding on examination. Laboratory studies reviewed and noted. She has some minimal urinary findings, but this is not convincing for infection. Urine is sent for culture. Results are discussed the patient. No clear cause for her weakness, she believes it may be secondary to Parkinson's and she is anxious for discharge home. She is to follow-up with her PCP. Patient was encouraged to return to the ED if symptoms worsen or change. Assessment/Plan Weakness (R53.1: Weakness) Disposition Plan Patient Discharge Condition Disposition: Discharged home Condition: Improved and stable Counseled: Patient and/or family were counseled to workup, results, treatment plan and follow-up recommendations Discharge Prescription List Prescriptions No active prescription medications Follow-up With When Contact Information Rodrick Sams In 3 days 07/19/2023 EST [address] [place] [address] [place] [address]- Business (1) Additional Instructions: Patient Education Weakness Attestation I performed a substantive part of the MDM during the patient?s E/M visit. I personally made or approved the documented management plan and acknowledge its risk of complications. (Independent Interpretation) My (EKG/X-Ray/US/CT) interpretation as above. (Discussion) Management/test interpretation discussed with APC. This report was transcribed using voice recognition software. Every effort was made to ensure accuracy, however, inadvertently computerized hand tacker mistakes may be present. Appropriate healthcare PPE was used in evaluating this patient. Problem List/Past Medical History Ongoing H/O emphysema High cholesterol Hydronephrosis, right Hypertension Kidney disease Ureteropelvic junction (UPJ) obstruction, right Historical COPD - Chronic obstructive pulmonary disease Hyperlipidemia Hypertension Parkinson's disease Procedure/Surgical History Removal of stent (03/04/2020), Appendectomy, Cataract, Hysterectomy, Splenectomy. Medications Inpatient No active inpatient medications Home alprazolam 1 mg Tab, 1 mg= 1 tab(s), Oral, PRN amLODIPine 10 mg Tab, 10 mg= 1 tab(s), Oral, Daily aspirin 81 mg oral tablet, 81 mg= 1 tab(s), Oral, Daily Cipro 500 mg Tab, See Instructions Daily Multiple for Women 50+ oral tablet, 1 tab(s), Oral, Daily hydrochlorothiazide-lisino pril 25 mg-20 mg Tab, 2 tab(s), Oral, Daily Misc Medication potassium chloride 20 mEq ER Tab, 40 mEq= 2 tab(s), Oral, Daily Pravachol 20 mg Tab, 20 mg= 1 tab(s), Oral, Daily Allergies sulfa drugs (Unknown) Social History Alcohol - Denies Alcohol Use, 06/23/2023 Substance Abuse - Denies Substance Abuse, 06/23/2023 Tobacco Former smoker, quit more than 30 days ago Tobacco Use:., 03/04/2020 Former smoker, quit more than 30 days ago Tobacco Use:., 02/10/2020 Family History Lung cancer: Father. Malignant lymphoma: Child. Stroke: Mother. Lab Results WBC: 9 E9/L (07/16/23 11:50:00) RBC: 4.6 E12/L (07/16/23 11:50:00) HGB: 14.3 gm/dL (07/16/23 11:50:00) Hct: 43 % (07/16/23 11:50:00) MC (more content not included)... Normal [facility] Comment on above: Result Comment: Elec tronically Signed By: Leighton Fernandes PA-C\.br\Date and Time Signed: 07/16/23 16:57 EST\.br\Electronically Co-Signed By: Demarco Beaver DO\.br\Date and Time Co-Signed: 07/16/23 17:10 EST ED Patient Education Noteon 07-16-2023 ED Patient Education Note Neurology Weakness Weakness is a lack of strength. You may feel weak all over your body (generalized), or you may feel weak in one part of your body (focal). Common causes of weakness include: ? Infection and disorders of the body's defense system (immune system). ? Physical exhaustion. ? Internal bleeding or other blood loss that results in a lack of red blood cells (anemia). ? Dehydration. ? An imbalance in mineral (electrolyte) levels, such as potassium. ? Chronic kidney or liver disease. ? Cancer. Other causes include: ? Some medicines or cancer treatment. ? Stress, anxiety, or depression. ? Heart disease, circulation problems, or stroke. ? Nervous system disorders. ? Thyroid disorders. ? Loss of muscle strength because of age or inactivity. ? Poor sleep quality or sleep disorders. The cause of your weakness may not be known. Some causes of weakness can be serious, so it is important to see your health care provider. Follow these instructions at home: Activity ? Rest as needed. ? Try to get enough sleep. Most adults need 7?8 hours of quality sleep each night. Talk to your health care provider about how much sleep you need. ? Do exercises, such as arm curls and leg raises, for 30 minutes at least 2 days a week or as told by your health care provider. This helps build muscle strength. ? Consider working with a physical therapist or business trainer who can develop an exercise plan to help you gain muscle strength. General instructions ? Take dajm-ogu-ueoggix and prescription medicines only as told by your health care provider. ? Eat a healthy, well-balanced diet. This includes: ? Proteins to build muscles, such as lean meats and fish. ? Fresh fruits and vegetables. ? Carbohydrates to boost energy, such as whole grains. ? Drink enough fluid to keep your urine pale yellow. ? Keep all follow-up visits. This is important. Contact a health care provider if: ? Your weakness does not improve or gets worse. ? Your weakness affects your ability to think clearly. ? Your weakness affects your ability to do your normal daily activities. Get help right away if: ? You develop sudden weakness, especially on one side of your face or body. ? You have chest pain. ? You have trouble breathing or shortness of breath. ? You have problems with your vision. ? You have trouble talking or swallowing. ? You have trouble standing or walking. ? You are light-headed or lose consciousness. These symptoms may be an emergency. Get help right away. Call 911. ? Do not wait to see if the symptoms will go away. ? Do not drive yourself to the hospital. Summary ? Weakness is a lack of strength. You may feel weak all over your body or just in one specific part of your body. ? Weakness can be caused by a variety of things. In some cases, the cause may be unknown. ? Rest as needed, and try to get enough sleep. Most adults need 7?8 hours of quality sleep each night. ? Eat a healthy, well-balanced diet. This information is not intended to replace advice given to you by your health care provider. Make sure you discuss any questions you have with your health care provider. Document Revised: 04/30/2022 Document Reviewed: 04/30/2022 Elsevier Patient Education ? 2022 [employer] Normal [facility] ED Patient Summaryon 024 ED Patient Summary (Inserted Image. Jenni ble to display) [place] [id number] Patient Discharge Instructions Person Information Name: JUDITH KHAN Age: 78 Years Arrival Date: 07/16/2023 11:33:16 Discharge Diagnosis: Weakness Primary Care Physician: Rodrick Sams MD Provider Information Primary Provider: Demarco Beaver DO [employer] Manager:Leighton Fernandes PA-C The exam and treatment you received in the Emergency Department were for an urgent problem and are not intended as complete care. It is important that you follow up with a doctor, nurse practitioner, or physician?s health education assistant for ongoing care. If your symptoms become worse or you do not improve as expected and you are unable to reach your usual health care provider, you should return to the Emergency Department. We are available 24 hours a day. JUDITH KHAN has been given the following list of patient education materials, prescriptions and follow-up instructions: Follow-up Instructions: With: Address: When: Rodrick Sams [address] [place] [address], [address] [place] [id number] Business (1) In 3 days 07/19/2023 In the event that this physician does not participate in your insurance network, please consult with your insurance company to find a nearby participating provider. Patient Education Materials: Weakness A MESSAGE TO ALL PATIENTS REGARDING OPIOIDS PRESCRIPTION OPIOIDS: WHAT YOU NEED TO KNOW Prescription opioids can be used to help relieve yenrhley-xk-xuigvb pain and are often prescribed following a surgery or injury, or for certain health conditions. These medications can be an important part of the treatment but also come with serious risks. It is important to work with your healthcare provider to make sure you are getting the safest, most effective care. WHAT ARE THE RISKS AND SIDE EFFECTS OF OPIOID USE? Prescription opioids carry serious risks of addiction and overdose, especially with prolonged use. An opioid overdose, often marked by slowed breathing, can cause sudden . The use of prescription opioids can have a number of side effects as well, even when taken as directed: ? Tolerance?meaning you might need to take more of the medication for the same pain relief ? Physical dependence?meaning you have symptoms of withdrawal when a medication is stopped ? Increased sensitivity to pain ? Constipation ? Nausea, vomiting, and dry mouth ? Sleepiness and dizziness ? Confusion ? Depression ? Low levels of testosterone that can result in lower sex drive, energy, and strength ? Itching and sweating RISKS ARE GREATER WITH: ? History of drug misuse, substance use disorder, or overdose ? Mental health conditions (such as depression or anxiety) ? Sleep apnea ? Older age (65 years and older) ? Avoid alcohol while taking prescription opioids. Also, unless specifically advised by your health care provider, medications to avoid include: ? Benzodiazepines (such as Xanax or Valium) ? Muscle relaxants (such as Soma or Flexeril) ? Hypnotics (such as Ambien or Lunesta) ? Other prescription opioids KNOW YOUR OPTIONS Talk to your health care provider about ways to manage your pain that don?t involve prescription opioids. Some of these options may actually work better and have fewer risks and side effects. Options may include: ? Pain relievers such as acetaminophen, ibuprofen, and naproxen ? Some medication that are also used for depression or seizures ? Physical therapy and exercise ? Cognitive behavioral therapy, a psychological, goal-directed approach, in which patients learn how to modify physical, behavioral, and emotional triggers of pain and stress. IF YOU ARE PRESCRIBED OPIOIDS FOR PAIN: ? Never take opioids in greater amounts or more often than prescribed. ? Follow up with your primary health care provider. o Work together to create a plan on how to manage your pain. o Talk about ways to help manage your pain that don?t involve prescription opioids. o Talk about any and all concerns and side effects. ? Help prevent misuse and abuse o Never sell or share prescription opioids. o Never use another person?s prescription opioids. ? Store prescription opioids in a secure place and out of reach of others (this may include visitors, children, friends, and family). ? Safely dispose of unused prescription opioids: Find your community drug take-back program or your pharmacy mail-back program, or flush them down the toilet, following guidance from the Food and Drug Administration (www.fda.gov/Drugs/Resourc esForYou). ? Visit www.cdc.gov/drugoverdose to learn about the risks of opioids abuse and overdose. ? If you believe you may be struggling with addiction, tell your health occasional caregiver and ask for guidance or call SAMHSA?S National Helpline at 8-538-000-HELP. v Source: [place] Department of Health a (more content not included)... Normal [facility] Troponin 0 Hr.on 07-16-2023 Troponin 21.20 pg/mL Normal 10.10-27.10 [facility] Comment on above: Result Comment: The 95% CI (Confidence Interval) PPV (Positive Predictive Value) for myocardial infarction in females is 38 pg/mL, in males 51 pg/mL. The results should be used in conjunction with clinical conditions of myocardial infarction. (Access High Sensitivity Troponin I Instructions For Use, [place], January 2018) Performed By: #### 2 [id number], [id number] #### [facility] [address] [place] [address] Troponin 3 Hr.on 07-16-2023 Troponin 19.60 pg/mL Normal 10.10-27.10 [facility] Comment on above: Result Comment: The 95% CI (Confidence Interval) PPV (Positive Predictive Value) for myocardial infarction in females is 38 pg/mL, in males 51 pg/mL. The results should be used in conjunction with clinical conditions of myocardial infarction. (Access High Sensitivity Troponin I Instructions For Use, [employer], January 2018) Performed By: #### 1 [id number] #### [facility] [address] [place] [address] UA With Cult Reflexon 2023 Bacteria LM Ql (Urine sed) TRACE Normal Trace [facility] Comment on above: Performed By: #### 2 [id number], [id number] #### [facility] [address] [place] [address] Bilirubin Ql (U) Negative Normal Negative [facility] Comment on above: Performed By: #### 2 726078, [id number] #### [facility] [address] [place] [address] Clarity (U) CLEAR Normal Clear [facility] Comment on above: Performed By: #### 2 830712, [id number] #### [facility] [address] [place] [address] Color (U) YELLOW Normal Yellow [facility] Comment on above: Performed By: #### 2 410567, [id number] #### [facility] [address] [place] [address] Crystals LM Ql (Urine sed) Present Normal [facility] Comment on above: Performed By: #### 2 414594, [id number] #### [facility] [address] [place] [address] Epithelial cells.squamous LM.HPF (Urine sed) [#/Area] 0-2 Normal 0-2 [facility] Comment on above: Performed By: #### 2 992344, [id number] #### [facility] [address] [place] [address] Glucose Test strip (U) [Mass/Vol] Negative Normal Negative [facility] Comment on above: Performed By: #### 2 452761, [id number] #### [facility] [address] [place] [address] Hemoglobin Ql (U) Negative Normal Negative [facility] Comment on above: Performed By: #### 2 424506, [id number] #### [facility] [address] [place] [address] Ketones (U) [Mass/Vol] Negative Normal Negative [facility] Comment on above: Performed By: #### 2 364540, [id number] #### [facility] [address] [place] [address] [place].plasma/Lith[place] um.RBC (Bld) [Mass ratio] 0-3 Normal 0-3 [facility] Comment on above: Performed By: #### 2 460824, [id number] #### [facility] [address] [place] [address] Nitrite Ql (U) Negative Normal Negative [facility] Comment on above: Performed By: #### 2 848221, [id number] #### [facility] [address] [place] [address] pH (U) 7.0 [pH] Invalid Interpretation Code 5.0-9.0 [facility] Comment on above: Performed By: #### 2 376353, [id number] #### [facility] [address] [place] [address] Protein (U) [Mass/Vol] Negative Normal Negative [facility] Comment on above: Performed By: #### 2 633709, [id number] #### [facility] [address] [place] [address] Specific gravity (U) [Rel density] 1.015 Invalid Interpretation Code 1.005-1.030 [facility] Comment on above: Performed By: #### 2 850337, [id number] #### [facility] [address] [place] [address] Type of Urine collection method Clean Catch Normal [facility] Comment on above: Performed By: #### 2 426594, [id number] #### [facility] [address] [place] [address] Urobilinogen Qn (U) 0.2 {Phoebe'U}/dL Normal 0.0-1.0 [facility] Comment on above: Performed By: #### 2 005238, [id number] #### [facility] [address] [place] [address] WBC Auto Ql (U) 1+ Abnormal Negative [facility] Comment on above: Performed By: #### 2 857335, [id number] #### [facility] [address] [place] [address] WBC LM.HPF (Urine sed) [#/Area] 0-5 Normal 0-5 [facility] Comment on above: Performed By: #### 2 293375, [id number] #### [facility] [address] [place] [address] eGFRon 07-16-2023 eGFR 66 mL/min/1.73 m2 Normal >=59 [facility] Comment on above: Order Comment: Order added by Discern Expert. Performed By: #### 2 473467, [id number] #### [facility] [address] [place] [id number] Office Visiton 07-06-2023 Follow-up visit [id number] Donato Khan 1945 F Date Provider Department Center 07/06/2023 [facility] Family History Problem Relation Age of Onset Stroke Mother Stroke Brother Other Mother's Sister Coronary artery disease Mother's Sister Stroke Maternal Grandmother Family Status - Relation Status Age at Mother Brother Mother's Sister Maternal Grandmother Level of Service:[address] [place] OFFICE/OUTPATIENT ESTABLISHED MOD MDM 30 MIN Normal [facility] C Urineon 06-25-2023 Bacteria identified Cx Nom (U) Microbiology PROCEDURE: Urine Culture [R1] SOURCE: U Cath BODY SITE: COLLECTED DATE/TIME: 06/23/2023 03:01 EST RECEIVED DATE/TIME: 06/23/2023 05:52 EST START DATE/TIME: 06/23/2023 05:52 EST FREE TEXT SOURCE: Elizabeth Sidhu M.D., Augie Sidhu M.D., Augie Charlton FINAL REPORTS Final Report [] Verified Date/Time: 06/25/2023 10:38 EST 25,000 cfu/ml Pseudomonas aeruginosa SUSCEPTIBILITY RESULTS _ LEGEND: S=Susceptible, N/R=Not Reported, Blank=Data not available, or drug not advisable or tested, I=Intermediate, ESBL=Extended spectrum beta-lactamase, R=Resistant, TFG=Thymidine-dependent strain, SVEN=Beta-lactamase positive, ROSALIND=mcg/m;(mg/L), S*=Predicted susceptible interp, R*=Predicted resistant interp PA Antibiotic ROSALIND Dilutn ROSALIND Interp Amikacin <=16 S Aztreonam <=4 S Cefepime <=2 S Ceftazidime <=1 S Ceftazidime/ <=8 S Avibactam Ciprofloxacin <=1 S Gentamicin <=4 S Levofloxacin <=2 S Meropenem <=1 S Piperacillin/ <=16 S Tazobactam Tobramycin <=4 S Performing Locations R1: This test was performed at: [facility], [address] [place] [address], [id number]- , , Normal [facility] Comment on above: Performed By: #### 1 [id number], [id number] #### [facility] [address] [place] [address] UA With Cult Reflexon 2023 UA Spec Desc Catheter Normal [facility] Comment on above: Result Comment: Mini cath specimen Performed By: #### 1 [id number], [id number] #### [facility] [address] [place] [address] Discharge Instructionson Discharge Instructions [id number] Normal [facility] Message from Medicareon 06-11 Message from Medicare [id number] Normal [facility] Auto Diffon 06-23-2023 Basophils/100 WBC (Bld) 0.4 % Normal 0.0-2.0 [facility] Comment on above: Order Comment: Order Added by Discern Expert. Performed By: #### 2 115199, [id number] #### [facility] [address] [place] [address] Basophils/Leukocytes Auto (Bld) [Pure # fraction] 0.1 E9/L Normal 0.0-0.2 [facility] Comment on above: Order Comment: Order Added by Discern Expert. Performed By: #### 2 761519, [id number] #### [facility] [address] [place] [address] Eosinophils/100 WBC (Bld) 0.8 % Normal 0.0-8.0 [facility] Comment on above: Order Comment: Order Added by Discern Expert. Performed By: #### 2 449253, [id number] #### [facility] [address] [place] [address] Eosinophils/Leukocyt es Auto (Bld) [Pure # fraction] 0.1 E9/L Normal 0.0-0.5 [facility] Comment on above: Order Comment: Order Added by Discern Expert. Performed By: #### 2 194781, [id number] #### [facility] [address] [place] [address] Lymphocytes/100 WBC (Bld) 15.1 % Normal 14.0-50.0 [facility] Comment on above: Order Comment: Order Added by Discern Expert. Performed By: #### 2 511991, [id number] #### [facility] [address] [place] [address] Lymphocytes/Leukocyt es Auto (Bld) [Pure # fraction] 2.2 E9/L Normal 1.0-4.0 [facility] Comment on above: Order Comment: Order Added by Discern Expert. Performed By: #### 2 724480, [id number] #### [facility] [address] [place] [address] Monocytes/100 WBC (Bld) 11.3 % Normal 4.0-14.0 [facility] Comment on above: Order Comment: Order Added by Discern Expert. Performed By: #### 2 241209, [id number] #### [facility] [address] [place] [address] Monocytes/Leukocytes Auto (Bld) [Pure # fraction] 1.6 E9/L High 0.2-1.0 [facility] Comment on above: Order Comment: Order Added by Discern Expert. Performed By: #### 2 246067, [id number] #### [facility] [address] [place] [address] Neutrophils/100 WBC (Bld) 72.4 % Normal 36.0-75.0 [facility] Comment on above: Order Comment: Order Added by Discern Expert. Performed By: #### 2 564758, [id number] #### [facility] [address] [place] [address] Neutrophils/Leukocyt es Auto (Bld) [Pure # fraction] 10.5 E9/L High 2.0-7.5 [facility] Comment on above: Order Comment: Order Added by Discern Expert. Performed By: #### 2 523824, [id number] #### [facility] [address] [place] [address] BMPon 06-23-2023 Anion gap [Moles/Vol] 13 mmol/L Normal 6-16 [facility] Comment on above: Performed By: #### 2 611640, [id number] #### [facility] [address] [place] [address] BUN/Creat Ratio 20 No Units Normal 10-20 [facility] Comment on above: Performed By: #### 2 756221, [id number] #### [facility] [address] [place] [address] Calcium [Mass/Vol] 10.7 mg/dL Normal 8.9-11.1 [facility] Comment on above: Performed By: #### 2 188508, [id number] #### [facility] [address] [place] [address] Chloride [Moles/Vol] 103 mmol/L Normal 101-111 [facility] Comment on above: Performed By: #### 2 764069, [id number] #### [facility] [address] [place] [address] CO2 [Moles/Vol] 25 mmol/L Normal 21-[address] [facility] Comment on above: Performed By: #### 2 909396, [id number] #### [facility] [address] [place] [address] Creatinine [Mass/Vol] 0.9 mg/dL Normal 0.5-1.3 [facility] Comment on above: Performed By: #### 2 181388, [id number] #### [facility] [address] [place] [address] Glucose [Mass/Vol] 98 mg/dL Normal 55-199 [facility] Comment on above: Performed By: #### 2 064697, [id number] #### [facility] [address] [place] [address] Potassium [Moles/Vol] 3.5 mmol/L Normal 3.5-5.3 [facility] Comment on above: Performed By: #### 2 065397, [id number] #### [facility] [address] [place] [address] Sodium [Moles/Vol] 137 mmol/L Normal 135-145 [facility] Comment on above: Performed By: #### 2 563833, [id number] #### [facility] [address] [place] [address] Urea nitrogen [Mass/Vol] 18 mg/dL Normal 5-21 [facility] Comment on above: Performed By: #### 2 189595, [id number] #### [facility] [address] [place] [address] CBC w/ Auto Diffon Erythrocyte distribution width (RBC) [Ratio] 13.6 % Normal 10.9-14.2 [facility] Comment on above: Performed By: #### 2 [id number], [id number] #### [facility] [address] [place] [address] Hematocrit (Bld) [Volume fraction] 40.9 % Normal 34.0-46.0 [facility] Comment on above: Performed By: #### 2 [id number], [id number] #### [facility] [address] [place] [address] Hemoglobin (Bld) [Mass/Vol] 13.7 g/dL Normal 12.0-16.0 [facility] Comment on above: Performed By: #### 2 [id number], [id number] #### [facility] [address] [place] [address] MCH (RBC) [Entitic mass] 30.8 pg Normal 27.0-34.0 [facility] Comment on above: Performed By: #### 2 [id number], [id number] #### [facility] [address] [place] [address] MCHC (RBC) [Mass/Vol] 33.4 g/dL Normal 31.4-36.0 [facility] Comment on above: Performed By: #### 2 [id number], [id number] #### [facility] [address] [place] [address] MCV (RBC) [Entitic vol] 92.2 fL Normal 80.0-100.0 [facility] Comment on above: Performed By: #### 2 [id number], [id number] #### [facility] [address] [place] [address] Platelet mean volume (Bld) [Entitic vol] 9.9 fL Normal 6.4-10.8 [facility] Comment on above: Performed By: #### 2 [id number], [id number] #### [facility] [address] [place] [address] Platelets (Bld) [#/Vol] 301.0 E9/L Normal 150.0-500.0 [facility] Comment on above: Performed By: #### 2 [id number], [id number] #### [facility] [address] [place] [address] RBC (Bld) [#/Vol] 4.4 E12/L Normal 4.3-5.9 [facility] Comment on above: Performed By: #### 2 [id number], [id number] #### [facility] [address] [place] [address] WBC corrected for nucl RBC Auto (Bld) [#/Vol] 14.5 E9/L High 4.0-11.0 [facility] Comment on above: Performed By: #### 2 [id number], [id number] #### [facility] [address] [place] [address] CHEMISTRYOrdered By: SYSTEM SYSTEM on 06-23-2023 Troponin 187.00 pg/mL Invalid Interpretation Code 10.10 - 27.10 pg/mL Remisol Chem Comment on above: Result Comment: Crit ical Result Verified by Previous Result Critical Result I_TnIHS:187.0 Called to and read back by: ANGEL RESTREPO at: 06/23/2023 12:10:53 by:CMK Interpretive Data: T he 95% CI (Confidence Interval) PPV (Positive Predictive Value) for myocardial infarction in females is 38 pg/mL, in males 51 pg/mL. The results should be used in conjunction with clinical conditions of myocardial infarction. ([employer]ist High Sensitivity Troponin I Instructions For Use, [employer], January 2018) Troponin 183.20 pg/mL Invalid Interpretation Code 10.10 - 27.10 pg/mL Remisol Chem Comment on above: Result Comment: Crit ical Result Verified by Previous Result Critical Result I_TnIHS:183.2 Called to and read back by: TATIANA MNUSON at: 06/23/2023 09:12:46 by:CMK Interpretive Data: T he 95% CI (Confidence Interval) PPV (Positive Predictive Value) for myocardial infarction in females is 38 pg/mL, in males 51 pg/mL. The results should be used in conjunction with clinical conditions of myocardial infarction. ([employer]ist High Sensitivity Troponin I Instructions For Use, [employer], January 2018) Troponin 116.80 pg/mL Invalid Interpretation Code 10.10 - 27.10 pg/mL Remisol Chem Comment on above: Result Comment: Crit ical Result Verified by Repeat Analysis Critical Result I_TnIHS:116.8 Called to and read back by: ELIAN QUIGLEY at: 06/23/2023 06:19:20 by:CMK Interpretive Data: T he 95% CI (Confidence Interval) PPV (Positive Predictive Value) for myocardial infarction in females is 38 pg/mL, in males 51 pg/mL. The results should be used in conjunction with clinical conditions of myocardial infarction. ([employer]ist High Sensitivity Troponin I Instructions For Use, [employer], January 2018) Lactic Acid Lvl 1.1 mmol/L Normal 0.5 - 2.2 mmol/L Remisol Chem Albumin [Mass/Vol] 4.1 g/dL Normal 3.3 - 5.0 gm/dL Remisol Chem Albumin/Globulin [Mass ratio] 1.7 {ratio} Normal 1.1 - 2.2 Remisol Chem Alk Phos 80 [iU]/d Normal 21 - 98 Int._Unit/L Remisol Chem ALT 10 [iU]/d Normal 6 - 46 Int._Unit/L Remisol Chem Anion gap [Moles/Vol] 13 mmol/L Normal 6 - 16 mEq/L Remisol Chem AST 16 [iU]/d Normal 5 - 43 Int._Unit/L Remisol Chem Bili Direct 0.1 mg/dL Normal 0.0 - 0.4 mg/dL Remisol Chem Bili Indirect 0.5 mg/dL Normal 0.1 - 0.9 mg/dL Remisol Chem Bili Total 0.6 mg/dL Normal 0.0 - 1.1 mg/dL Remisol Chem Calcium [Mass/Vol] 10.7 mg/dL Normal 8.9 - 11. 1 mg/dL Remisol Chem Chloride [Moles/Vol] 103 mmol/L Normal 101 - 1 11 mmol/L Remisol Chem CO2 [Moles/Vol] 25 mmol/L Normal 21 - 31 mmol/L Remisol Chem Creatinine [Mass/Vol] 0.9 mg/dL Normal 0.5 - 1.3 mg/dL Remisol Chem eGFR mL/min/1.73 m2 Normal >=59mL/min/ 1.73 m2 Remisol Chem Globulin (S) [Mass/Vol] 2.4 g/dL Normal 1.4 - 4.0 gm/dL Remisol Chem Glucose [Mass/Vol] 98 mg/dL Normal 55 - 199 mg/dL Remisol Chem Magnesium [Mass/Vol] 1.8 mg/dL Normal 1.3 - 2 .4 mg/dL Remisol Chem Potassium [Moles/Vol] 3.5 mmol/L Normal 3.5 - 5.3 mmol/L Remisol Chem Protein [Mass/Vol] 6.5 g/dL Normal 6.0 - 7.8 gm/dL Remisol Chem Sodium [Moles/Vol] 137 mmol/L Normal 135 - 145 mmol/L Remisol Chem TSH Qn 0.68 m[IU]/L Normal 0.34 - 5.60 mcIU/mL Remisol Chem Urea nitrogen [Mass/Vol] 18 mg/dL Normal 5 - 21 mg/dL Remisol Chem Urea nitrogen/Creatinine [Mass ratio] 20 mg/mg Normal 10 - 20 Remisol Chem CHEMISTRYOrdered By: Lab ROP User on 06-23-2023 Glucose [Mass/Vol] 96 mg/dL Normal 55 - 99 mg/dL [facility] POC Subsection Comment on above: Result Comment: Bonnie jamil RN/ POC Device SN [id number] 1 Invalid Interpretation Code [facility] POC Subsection POC User ID [id number] 1 Invalid Interpretation Code [facility] POC Subsection POC Username JOSH GERONIMO Invalid Interpretation Code [facility] POC Subsection COAGULATIONOrdered By: Hoang Chris on 06-23-2023 aPTT Coag (PPP) [Time] 30.4 s Normal 25.1 - 36.5 second(s) [facility] Auto Coag Comment on above: Interpretive Data: P arameter 15 days - 4 weeks 1 - 5 months 6 - 11 months 1 - 5 years 6 - 10 years 11 - 17 years PTT Mean: 35.4 (27.6-45.6) Mean: 33.5 (24.8-40.7) Mean: 32.4 (25.1-40.7) Mean: 31.6 (24.0-39.2) Mean: 31.6 (26.9-38.7) Mean: 31.0 (24.6-38.4) Pediatric Reference ranges were obtained from a study by Jelani Ruiz et al. prepared from 1437 samples obtained at 7 different centers using the same coagulation reagent and instrumentation as [facility]. Currently there are no coagulation studies available worldwide for children to 14 days, and no normal ranges. Heparin therapeutic range (represented by Anti-Factor Xa activity of 0.2 - 0.4 U/mL) corresponds to PTT of 56.6 - 109.0 sec. INR Coag (PPP) [Relative time] 1.0 {INR} Invalid Interpretation Code [facility] Auto Coag Comment on above: Interpretive Data: I NR results are specifically intended to assess patients stabilized on long-term Anticoagulation therapy suggested INR s Less Intensive Anticoagulation 2.0 3.0 Conventional Range 3.0 4.5 PT Coag (PPP) [Time] 11.7 s Normal 9.4 - 1 2.5 second(s) [facility] Auto Coag Comment on above: Interpretive Data: 1 5 days - 4 weeks 1 - 5 months 6 -11 months 1 5 years 6 10 years 11 -17 years Mean: 11.2 (9.5 12.6) Mean: 11.0 (9.7 12.8) Mean: 11.0 (9.8 13.0) Mean: 11.3 (9.9 13.4) Mean: 11.7 (10.0 14.6) Mean: 11.8 (10.0 - 14.1) Pediatric Reference ranges were obtained from a study by per Abraham al. prepared from 1437 samples obtained at 7 different centers using the same coagulation reagent and instrumentation as [facility]. Currently there are no coagulation studies available worldwide for children to 14 days, and no normal ranges. CT Head or Brain w/o Contras ton 06-23-2023 CT Head or Brain w/o Contrast Exam Date/Time: 06/23/2023 01:47 EST Reason for Exam: Neuro deficit, acute, stroke suspected;Other (please specify) Report IMPRESSION: There are no acute intracranial changes. EXAM: CT Head or Brain w/o Contrast DATE: 06/23/2023 1:46 AM CLINICAL HISTORY: AMS Neuro deficit, acute, stroke suspected TECHNIQUE: Multiple images axial images were obtained without contrast administration. 3-D sagittal and coronal reconstructions were performed. All CT scans at this facility use dose modulation, iterative reconstruction, and/or weight based dosing when appropriate to reduce radiation dose to as low as reasonably achievable. COMPARISON: FINDINGS: There is no evidence of acute hemorrhage, mass effect or edema. There are no extra-axial collections or space-occupying lesions. There is no evidence of acute ischemia, loss of mueller-white matter differentiation There is mild prominence of sulci and ventricles similar to the previous study indicating global cerebral atrophy. There are periventricular white matter hypodensities associated chronic microangiopathy. The posterior fossa is unremarkable, The orbits demonstrate no intra or extraconal lesions. The globes are intact. The visualized portions of paranasal sinuses are unremarkable. The calvarium is unremarkable. Ordering Provider: Augie Sidhu FINAL REPORT Dictated: 06/23/2023 11:54 am Miguel A Joseph MD, V. Signed (Electronic Signature): 06/23/2023 11:54 am Signed by: Miguel A Joseph MD, V. Transcribed by: OTONIEL Technologist: YOLY Technical Comments Contrast: None Normal [facility] Capillary Glucose POCon 06-11 Glucose [Mass/Vol] 96 mg/dL Normal 55-99 [facility] Comment on above: Result Comment: Bonnie jamil RN/ Performed By: #### 2 [id number] #### [facility] Laboratory [address] [place] [address] Consent for Treatmenton 06-11 Consent for Treatment [id number] Normal [facility] Discharge Note-Nursingon Discharge Note-Nursing JUDITH KHAN :1945 Visit Date:06/23/2023 Inpatient Discharge Instructions Your Care Team Admitting Physician - Kylie HERRERA, Mela Consulting Physician - Ramiro Louise MD Reason for Your Visit weakness Your Diagnosis Right sided weakness Hypoxia Urinary tract infection Elevated troponin Hypertension High cholesterol Parkinsons Potential stroke Tests Performed Automated Diff Blood Culture Charcoal -- Results Pending -- BMP Capillary Glucose POC CBC w/ Auto Diff COVID Rapid Antigen ([facility]) eGFR Hepatic Function Panel Lactic Acid Magnesium Level PT & PTT Troponin 0 Hr. Troponin 3 Hr. Troponin 6 Hr. Troponin 9 Hr. TSH With T4fr Reflex Urinalysis with Culture Reflex Urine Culture -- Results Pending -- CT Head or Brain w/o Contrast XR Chest Single View Please visit your patient portal for your results or contact your primary care physician. This Is Your Medications List Non-Formulary Medication (Misc Medication) alprazolam (alprazolam 1 mg Tab) amlodipine (amLODIPine 10 mg Tab) aspirin (aspirin 81 mg oral tablet) ciprofloxacin (Cipro 500 mg Tab) hydrochlorothiazide-lisino pril (hydrochlorothiazide-lisin opril 25 mg-20 mg Tab) multivitamin with minerals (Daily Multiple for Women 50+ oral tablet) potassium chloride (potassium chloride 20 mEq ER Tab) pravastatin (Pravachol 20 mg Tab) Procedure History Removal of stent (03/04/2020), Appendectomy, Cataract, Hysterectomy, Splenectomy. Discharge Vitals Temperature (Oral) 36.5 ?C Heart Rate (Monitored) 107 Respiratory Rate 17 Blood Pressure 162/82 Height 167.64 cm Weight 55 kg BMI 19.57 What to do next Instructions From Your Doctor Event Name Event Result Pharmacy Information [facility] Follow Up Appointments after Discharge Follow Up with Dani HERRERA, JOANNA Kauffman When: Within 1 to 2 weeks Where: [facility] [place] [address]- Medications What How Much When Instructions Next Dose Unchanged alprazolam (alprazolam 1 mg Tab) 1 Tablets By Mouth As needed for for anxiety NEEDED FOR ANXIETY Unchanged amlodipine (amLODIPine 10 mg Tab) 1 Tablets By Mouth Every day 06/24 @ 9 AM Unchanged aspirin (aspirin 81 mg oral tablet) 1 Tablets By Mouth Every day 06/24 @ 9 AM Unchanged ciprofloxacin (Cipro 500 mg Tab) See instructions Take 1 tab day prior to procedure and 1 tab day of procdure - afterwards NEEDED FOR PROCEDURE Unchanged hydrochlorothiazide-lisino pril (hydrochlorothiazide-lisin opril 25 mg-20 mg Tab) 2 Tablets By Mouth Every day 06/24 @ 9 AM Unchanged multivitamin with minerals (Daily Multiple for Women 50+ oral tablet) 1 Tablets By Mouth Every day 06/24 @ 9 AM Unchanged Non-Formulary Medication (Misc Medication) calcium +D3 PREVIOUSLY TAKEN Unchanged potassium chloride (potassium chloride 20 mEq ER Tab) 2 Tablets By Mouth Every day 06/24 @ 9 AM Unchanged pravastatin (Pravachol 20 mg Tab) 1 Tablets By Mouth Every day 06/24 @ 9 AM Test Results CBC BMP WBC: 14.5 E9/L High (06/23/23 01:55:00) Glucose Lvl: 98 mg/dL (06/23/23 01:55:00) RBC: 4.4 E12/L (06/23/23 01:55:00) BUN: 18 mg/dL (06/23/23 01:55:00) HGB: 13.7 gm/dL (06/23/23 01:55:00) Creatinine: 0.9 mg/dL (06/23/23 01:55:00) Hct: 40.9 % (06/23/23 01:55:00) BUN/Creat Ratio: 20 (06/23/23 01:55:00) MCV: 92.2 fL (06/23/23 01:55:00) Sodium Lvl: 137 mmol/L (06/23/23 01:55:00) MCH: 30.8 pg (06/23/23 01:55:00) Potassium Lvl: 3.5 mmol/L (06/23/23 01:55:00) MCHC: 33.4 gm/dL (06/23/23 01:55:00) Chloride: 103 mmol/L (06/23/23 01:55:00) RDW: 13.6 % (06/23/23 01:55:00) CO2: 25 mmol/L (06/23/23 01:55:00) Platelet: 301 E9/L (06/23/23 01:55:00) AGAP: 13 mEq/L (06/23/23 01:55:00) MPV: 9.9 fL (06/23/23 01:55:00) Calcium Lvl: 10.7 mg/dL (06/23/23 01:55:00) Allergies sulfa drugs (Unknown) Problems Ongoing - Any problem that you are currently receiving treatment for. H/O emphysema High cholesterol Hydronephrosis, right Hypertension Kidney disease Ureteropelvic junction (UPJ) obstruction, right Historical - Any problem that you are no longer receiving treatment for. COPD - Chronic obstructive pulmonary disease Hyperlipidemia Hypertension Parkinson's disease Education Materials Weakness Weakness is a lack of strength. You may feel weak all over your body (generalized), or you may feel weak in one part of your body (focal). There are many potential causes of weakness. Sometimes, the cause of your weakness may not be known. Some causes of weakness can be serious, so it is important to see your doctor. Follow these instructions at home: Activity ? Rest as needed. ? Try to get enough sleep. Most adults need 7?8 hours of sleep each night. Talk to your doctor about how much sleep you need. ? Do exercises, such as arm curls and leg raises, for 30 minutes at least 2 days a (more content not included)... Normal [facility] ED Clinical Summaryon 2023 ED Clinical Summary (Inserted Image. Jenni ble to display) [address] [address] ED Clinical Summary Person Information Name: JUDITH KHAN [facility]cia/[facility] Age: 78 Years : 1945 Sex: Female Language: Bolivian PCP: Rodrick Sams MD Marital Status: Visit Id: Visit Reason: Potential stroke; POSS STROKE Speciality: Acuity: 2 Enc Type: Observation Med Service: Emergency Arrival: 06/23/2023 01:35:17 Discharge: LOS: 000 03:53 Checkin: 06/23/2023 01:35:17 Checkout: 06/23/2023 05:28:48 Dispo Type: Admitted as IP to this [facility] EVENTS: Event Name Event Status Request Date/Time Start Date/Time Complete Date/Time Arrive Complete 06/23/2023 01:35:17 06/23/2023 01:35:17 06/23/2023 01:35:17 Document Home Meds Request 06/23/2023 01:35:17 Triage Complete 06/23/2023 01:35:17 06/23/2023 01:52:56 06/23/2023 01:52:56 RR Stroke Request 06/23/2023 01:36:14 Bed Assign Complete 06/23/2023 01:36:35 06/23/2023 01:36:35 06/23/2023 01:36:35 Dr Exam Complete 06/23/2023 01:36:35 06/23/2023 01:37:17 06/23/2023 01:37:17 RN Exam Complete 06/23/2023 01:36:35 06/23/2023 02:10:21 06/23/2023 02:10:21 CT Complete 06/23/2023 01:37:00 06/23/2023 01:46:31 06/23/2023 01:47:49 Registration Complete 06/23/2023 01:37:17 06/23/2023 01:43:54 06/23/2023 01:43:54 EKG Complete 06/23/2023 01:38:16 06/23/2023 01:45:23 NPO Request 06/23/2023 01:38:16 Pending Labs Complete 06/23/2023 01:38:16 06/23/2023 03:53:39 Lab Complete 06/23/2023 01:38:16 06/23/2023 03:53:39 Urine Collect Complete 06/23/2023 01:38:16 06/23/2023 03:53:39 Patient Care Complete 06/23/2023 01:38:16 06/23/2023 04:27:59 X-Ray Complete 06/23/2023 01:38:16 06/23/2023 01:51:43 06/23/2023 02:07:02 RT Cancel 06/23/2023 01:38:16 06/23/2023 04:27:59 Pending Labs Complete 06/23/2023 01:40:25 06/23/2023 01:40:25 06/23/2023 01:40:25 Reg Complete Request 06/23/2023 01:43:54 Reg Bed Request Complete 06/23/2023 01:43:54 06/23/2023 01:43:54 06/23/2023 01:43:54 RR Stroke Request 06/23/2023 01:54:48 Pending Labs Collected 06/23/2023 01:55:33 Lab Collected 06/23/2023 01:55:33 Pending Labs Complete 06/23/2023 02:01:26 06/23/2023 02:01:26 06/23/2023 02:46:13 Lab Complete 06/23/2023 02:01:26 06/23/2023 02:01:26 06/23/2023 02:39:29 Pending Labs Complete 06/23/2023 02:01:40 06/23/2023 02:01:40 06/23/2023 02:39:29 Lab Complete 06/23/2023 02:01:40 06/23/2023 02:01:40 06/23/2023 02:39:29 Pending Labs Complete 06/23/2023 02:06:13 06/23/2023 02:06:13 06/23/2023 02:39:29 Lab Complete 06/23/2023 02:06:13 06/23/2023 02:06:13 06/23/2023 02:39:29 Wet Read Request 06/23/2023 02:07:02 Fall Risk Request 06/23/2023 02:10:22 RR Stroke Request 06/23/2023 02:10:22 Pending Labs Complete 06/23/2023 02:16:39 06/23/2023 02:16:39 06/23/2023 02:16:49 Lab Complete 06/23/2023 02:16:39 06/23/2023 02:16:39 06/23/2023 02:16:49 Pending Labs Request 06/23/2023 02:56:32 Pending Labs Collected 06/23/2023 03:30:32 06/23/2023 03:30:32 Lab Collected 06/23/2023 03:30:32 06/23/2023 03:30:32 Consult Request 06/23/2023 03:38:45 Hospitalist Consult Request 06/23/2023 03:38:45 Patient Care Request 06/23/2023 03:49:39 Patient Care Request 06/23/2023 03:49:39 OVIEDO Form Request 06/23/2023 03:49:39 Patient Care Request 06/23/2023 03:49:39 Patient Care Request 06/23/2023 03:49:39 Bed Request Request 06/23/2023 03:49:56 Reg Bed Request Request 06/23/2023 03:49:56 Admit Request 06/23/2023 03:49:56 Meds Admin Cancel 06/23/2023 04:15:34 06/23/2023 04:35:49 Patient Care Request 06/23/2023 04:30:21 Meds Admin Request 06/23/2023 04:30:21 RT Request 06/23/2023 04:30:21 MRI Request 06/23/2023 04:30:21 Meds Admin Request 06/23/2023 04:30:49 ADDRESS: [address] [place] [id number] PHYS DOC NOTES: MEDICAL INFORMATION: Prescriptions Given: Medications to Continue with No Changes Other Medications alprazolam (alprazolam 1 mg Tab) 1 Tablets By Mouth as needed for anxiety. amlodipine (amLODIPine 10 mg Tab) 1 Tablets By Mouth every day. aspirin (aspirin 81 mg oral tablet) 1 Tablets By Mouth every day. carbidopa-levodopa (carbidopa-levodopa 25 mg-100 mg Tab) By Mouth. ciprofloxacin (Cipro 500 mg Tab) Take 1 tab day prior to procedure and 1 tab day of procdure - afterwards. Refills: 0. hydrochlorothiazide-lisino pril (hydrochlorothiazide-lisin opril 25 mg-20 mg Tab) 2 Tablets By Mouth every day. metoprolol (metoprolol 100 mg ER Tab) By Mouth every day. multivitamin with minerals (Daily Multiple for Women 50+ oral tablet) 1 Tablets By Mouth every day. Non-Formulary Medication (Misc Medication) calcium +D3. potassium chloride (potassium chloride 20 mEq ER Tab) 2 Tablets By Mouth every day. pravastatin (Pravachol 20 mg Tab) 1 Tablets By Mouth every day. PATIENT EDUCATION INFORMATION: Instructions: Follow up: DIAGNOSIS: 1:Right sided weakness; 2:Hypoxia; 3:Urinary tract infection; 4:Elevated troponin; 5:Hypertension; 6:High cholesterol; 7:Parkinsons Normal [facility] ED Note-Physicianon 06-23-19 ED Note-Physician Basic Information Time Seen: Augie Sidhu M.D. 06/23/2023 01:37 Chief Complaint states went to the bathroom and had dificulty getting off of the commode, states felt weak in both legs. suspected stroke per ems, r sided weaknessper ems, LKW 2100. has a hx of parkinsons. bs 96 History of Present Illness The patient is a 78-year-old female past medical history of Parkinson's disease who presented to the emergency room with her daughter for weakness. Per EMS the patient had right-sided weakness. The patient states she went to bed around 2100 last night. She woke up 12:30 to go to the bathroom and she could not get up because she was weak. She states both her legs were weak. The patient states it took about 25 minutes for her to get up to go to the bathroom because of the weakness. The patient states she does have weakness on the right side at baseline. She states yesterday she did not eat because she had no appetite. The patient denies any nausea, denies any vomiting. She denies any diarrhea. She denies any abdominal pain. The patient denies any headache. She denies any dizziness, lightheadedness. She denies any blurred vision or double vision. The patient states she has weakness on the right side which is chronic. She states her mouth is dry. The patient denies any sore throat. She denies any body aches. She denies any fever, denies any chills. The patient denies any other associated symptoms. Review of Systems Additional ROS info: Except as noted in the above Review of Systems and in the History of Present Illness all other systems have been reviewed and are negative or noncontributory. Physical Exam Vitals & Measurements T: 37 ?C(Oral) HR: 119(Monitored) RR: 20 BP: 148/108 SpO2: 94% HT: 167 cm WT: 56.3 kg BMI: 20.19 General: alert, no acute distress Skin: warm, dry Head: no trauma, normocephalic Neck: Trachea midline Eye: normal conjunctiva, sclera clear, PERRL, EOMI, vision unchanged ENMT: Oral mucosa not moist, no pharyngeal erythema or exudate Cardiovascular: regular rate and rhythm Respiratory: Lungs CTA, respirations non labored, breath sounds equal Gastrointestinal: soft, non distended, no tenderness, no guarding Extremities: no deformity, no trauma Neurological: Alert and oriented, CN II-XII intact, motor strength equal & normal bilaterally, sensation equal & normal bilaterally, speech normal, there is weakness on the right lower leg, drift but does not hit the bed which is chronic per patient and her daughter. The patient has tremors on both arms more on the right, normal coordination Psychiatric: cooperative, affect appropriate for age, Procedure NIH stroke scale: Level of Consciousness: Alert = 0 Current month and age: Answers both correctly = 0 Open and close eyes/anatomy professor release hand: Obeys both correctly = 0 Best gaze: Normal = 0 Visual field testing: No visual field loss = 0 Facial paresis: Normal symmetric movement = 0 Motor function left arm: Normal = 0 Motor function right arm: Normal = 0 Motor function left leg: Normal = 0 Motor function right leg: Drift = 1 Limb ataxia: No ataxia = 0 Sensory: Normal = 0 Best language: No aphasia = 0 Dysarthria: Normal articulation = 0 Extinction and inattention: Normal = 0 Total Score (severe deficit >22): Notes: The patient has mild weakness in the right leg which is chronic per patient and her daughter Medical Decision Making MEDICAL DECISION MAKING Number and Complexity of Problems Differential Diagnosis: [] [facility] Data External documents reviewed: [] My EKG interpretation: [] My CT interpretation: [] My X-ray interpretation: [] My Ultrasound interpretation: [] Decision rules/scores evaluated: [] Discussed with: Hospitalist Treatment and Disposition ED Course: The patient presented with weakness on the right side. Rapid response stroke was called. CT of the brain shows no acute intracranial process. The patient is not a candidate for tPA as her last well-known was more than 4.5 hours of the presentation as well as the patient has mild weakness on the right lower leg which is chronic and no new deficits. The patient has history of Parkinson's with right-sided deficit. I do appreciate weakness on the right leg. The blood work reviewed. The patient has leukocytosis. More likely due to urinary tract infection. The urine shows infection. Her troponin is slightly elevated. Unclear etiology. Possible due to her current illness. The patient has no chest pain. EKG shows no ST segment elevation. The patient was given IV fluid and started on Rocephin. The case is discussed with the hospitalist and the patient will be admitted to the hospitalist services. Shared decision making: [] Code status: [] Assessment/Plan 1. Weakness (R53.1: Weakness) 2. Urinary tract infection (N39.0: Urinary tract infection, site not specified) 3. Elevated troponin (R79.89: Other specified abnormal findings of blood chem (more content not included)... Normal [facility] Comment on above: Result Comment: Elec tronically Signed By: Augie Sidhu M.D.\.andreia\Date and Time Signed: 06/23/23 04:21 EST ED Patient Education Noteon 06-23-2023 ED Patient Education Note Normal [facility] ED Patient Summaryon 024 ED Patient Summary (Inserted Image. Jenni ble to display) [place] [id number] Patient Discharge Instructions Person Information Name: JUDITH KHAN Age: 78 Years Arrival Date: 06/23/2023 01:35:17 Discharge Diagnosis: 1:Right sided weakness; 2:Hypoxia; 3:Urinary tract infection; 4:Elevated troponin; 5:Hypertension; 6:High cholesterol; 7:Parkinsons Primary Care Physician: Rodrick Sams MD Provider Information Primary Provider: Augie Sidhu M.D. Advanced Water Project Manager:None The exam and treatment you received in the Emergency Department were for an urgent problem and are not intended as complete care. It is important that you follow up with a doctor, nurse practitioner, or physician?s health education assistant for ongoing care. If your symptoms become worse or you do not improve as expected and you are unable to reach your usual health care provider, you should return to the Emergency Department. We are available 24 hours a day. JUDITH KHAN has been given the following list of patient education materials, prescriptions and follow-up instructions: Follow-up Instructions: In the event that this physician does not participate in your insurance network, please consult with your insurance company to find a nearby participating provider. Patient Education Materials: A MESSAGE TO ALL PATIENTS REGARDING OPIOIDS PRESCRIPTION OPIOIDS: WHAT YOU NEED TO KNOW Prescription opioids can be used to help relieve vemgeogd-br-jrhnul pain and are often prescribed following a surgery or injury, or for certain health conditions. These medications can be an important part of the treatment but also come with serious risks. It is important to work with your healthcare provider to make sure you are getting the safest, most effective care. WHAT ARE THE RISKS AND SIDE EFFECTS OF OPIOID USE? Prescription opioids carry serious risks of addiction and overdose, especially with prolonged use. An opioid overdose, often marked by slowed breathing, can cause sudden . The use of prescription opioids can have a number of side effects as well, even when taken as directed: ? Tolerance?meaning you might need to take more of the medication for the same pain relief ? Physical dependence?meaning you have symptoms of withdrawal when a medication is stopped ? Increased sensitivity to pain ? Constipation ? Nausea, vomiting, and dry mouth ? Sleepiness and dizziness ? Confusion ? Depression ? Low levels of testosterone that can result in lower sex drive, energy, and strength ? Itching and sweating RISKS ARE GREATER WITH: ? History of drug misuse, substance use disorder, or overdose ? Mental health conditions (such as depression or anxiety) ? Sleep apnea ? Older age (65 years and older) ? Avoid alcohol while taking prescription opioids. Also, unless specifically advised by your health care provider, medications to avoid include: ? Benzodiazepines (such as Xanax or Valium) ? Muscle relaxants (such as Soma or Flexeril) ? Hypnotics (such as Ambien or Lunesta) ? Other prescription opioids KNOW YOUR OPTIONS Talk to your health care provider about ways to manage your pain that don?t involve prescription opioids. Some of these options may actually work better and have fewer risks and side effects. Options may include: ? Pain relievers such as acetaminophen, ibuprofen, and naproxen ? Some medication that are also used for depression or seizures ? Physical therapy and exercise ? Cognitive behavioral therapy, a psychological, goal-directed approach, in which patients learn how to modify physical, behavioral, and emotional triggers of pain and stress. IF YOU ARE PRESCRIBED OPIOIDS FOR PAIN: ? Never take opioids in greater amounts or more often than prescribed. ? Follow up with your primary health care provider. o Work together to create a plan on how to manage your pain. o Talk about ways to help manage your pain that don?t involve prescription opioids. o Talk about any and all concerns and side effects. ? Help prevent misuse and abuse o Never sell or share prescription opioids. o Never use another person?s prescription opioids. ? Store prescription opioids in a secure place and out of reach of others (this may include visitors, children, friends, and family). ? Safely dispose of unused prescription opioids: Find your community drug take-back program or your pharmacy mail-back program, or flush them down the toilet, following guidance from the Food and Drug Administration (www.fda.gov/Drugs/Resourc esForYou). ? Visit www.cdc.gov/drugoverdose to learn about the risks of opioids abuse and overdose. ? If you believe you may be struggling with addiction, tell your health occasional caregiver and ask for guidance or call [facility] National Helpline at 8-295-344-KQXY. v Source: US Department of Health and Human Services/Center for Disease (more content not included)... Normal [facility] HEMATOLOGYOrdered By: SYSTEM SYSTEM on 06-23-2023 Basophils/100 WBC (Bld) 0.4 % Normal 0.0 - 2.0 % [facility] Basophils/Leukocytes Auto (Bld) [Pure # fraction] 0.1 E9/L Normal 0.0 - 0.2 E9/L [facility] Eosinophils/100 WBC (Bld) 0.8 % Normal 0.0 - 8.0 % [facility] Eosinophils/Leukocyt es Auto (Bld) [Pure # fraction] 0.1 E9/L Normal 0.0 - 0.5 E9/L [facility] Lymphocytes/100 WBC (Bld) 15.1 % Normal 14.0 - 50.0 % [facility] Lymphocytes/Leukocyt es Auto (Bld) [Pure # fraction] 2.2 E9/L Normal 1.0 - 4.0 E9/L [facility] Monocytes/100 WBC (Bld) 11.3 % Normal 4.0 - 14.0 % [facility] Monocytes/Leukocytes Auto (Bld) [Pure # fraction] 1.6 E9/L High 0.2 - 1.0 E9/L [facility] Neutrophils/100 WBC (Bld) 72.4 % Normal 36.0 - 75.0 % [facility] Neutrophils/Leukocyt es Auto (Bld) [Pure # fraction] 10.5 E9/L High 2.0 - 7.5 E9/L [facility] HEMATOLOGYOrdered By: Hoang Chris on 06-23-2023 Erythrocyte distribution width (RBC) [Ratio] 13.6 % Normal 10.9 - 14.2 % [facility] Hematocrit (Bld) [Volume fraction] 40.9 % Normal 34.0 - 46.0 % [facility] Hemoglobin (Bld) [Mass/Vol] 13.7 g/dL Normal 12.0 - 16.0 gm/dL [facility] MCH (RBC) [Entitic mass] 30.8 pg Normal 27.0 - 34.0 pg [facility] MCHC (RBC) [Mass/Vol] 33.4 g/dL Normal 31.4 - 36.0 gm/dL [facility] MCV (RBC) [Entitic vol] 92.2 fL Normal 80.0 - 100.0 fL [facility] Platelet mean volume (Bld) [Entitic vol] 9.9 fL Normal 6.4 - 10.8 fL [facility] Platelets (Bld) [#/Vol] 301.0 E9/L Normal 150.0 - 500.0 E9/L [facility] RBC (Bld) [#/Vol] 4.4 E12/L Normal 4.3 - 5.9 E12/L [facility] WBC corrected for nucl RBC Auto (Bld) [#/Vol] 14.5 E9/L High 4.0 - 11.0 E9/L [facility] HemeAutoSS Hep Func Panelon 06-23-2023 Albumin [Mass/Vol] 4.1 g/dL Normal 3.3-5.0 [facility] Comment on above: Performed By: #### 2 [id number], [id number] #### [facility] [address] [place] [address] Albumin/Globulin [Mass ratio] 1.7 {ratio} Normal 1.1-2.2 [facility] Comment on above: Performed By: #### 2 [id number], [id number] #### [facility] [address] [place] [address] Alk Phos 80 Int._Unit/L Normal 21-98 [facility] Comment on above: Performed By: #### 2 [id number], [id number] #### [facility] [address] [place] [address] ALT 10 Int._Unit/L Normal 6-46 [facility] Comment on above: Performed By: #### 2 [id number], [id number] #### [facility] [address] [place] [address] AST 16 Int._Unit/L Normal 5-43 [facility] Comment on above: Performed By: #### 2 [id number], [id number] #### [facility] [address] [place] [address] Bili Direct 0.1 mg/dL Normal 0.0-0.4 [facility] Comment on above: Performed By: #### 2 [id number], [id number] #### [facility] [address] [place] [address] Bili Indirect 0.5 mg/dL Normal 0.1-0.9 [facility] Comment on above: Performed By: #### 2 [id number], [id number] #### [facility] [address] [place] [address] Bili Total 0.6 mg/dL Normal 0.0-1.1 [facility] Comment on above: Performed By: #### 2 [id number], [id number] #### [facility] [address] [place] [address] Globulin (S) [Mass/Vol] 2.4 g/dL Normal 1.4-4.0 [facility] Comment on above: Performed By: #### 2 769107, [id number] #### [facility] [address] [place] [address] Protein [Mass/Vol] 6.5 g/dL Normal 6.0-7.8 [facility] Comment on above: Performed By: #### 2 [id number], [id number] #### [facility] [address] [place] [address] Interdisciplinary Note - Bobby n 06-23-2023 Interdisciplinary Note - OT OT eval. completed. Pt. completes basic ADL's independently, but has difficulty with hand use and has significant tremors. 6 clicks AM-PAC ADL score= 22/24. Pt. reports she is at her baseline ADL status. No further acute care OT needs. No problems anticipated with pt. returning home with her daughter upon D/C from acute care. Recommend Out-pt. OT eval. for Parkinson's. Normal [facility] Interdisciplinary Note - Spe ech Languageon 06-23-2023 Interdisciplinary Note - Speech Language Pt is a 78 year old female with a history of Parkinson's and came to hospital due to overall weakness and suspicion of possible stroke. CT head scans were negative, pt was found to have a UTI. Pt oriented x4. Pt stated she has never had any issues with eating or drinking and that she is able to eat pretty much anything she wants. Pt does have top and bottom dentures. Pt tolerated 3/3 trials of thin liquids, SB6 solids, and RG7 solids with no overt signs or symptoms of aspiration or penetration. ST recommends pt be on RG7 solids and thin liquids. Small bites and sips. Pills can be given whole with a drink or crushed in puree as tolerated by pt. No further ST needs at this time. Normal [facility] Lactic Acidon 06-23-2023 Lactic Acid Lvl 1.1 mmol/L Normal 0.5-2.2 [facility] Comment on above: Performed By: #### 2 [id number], [id number] #### [facility] [address] [place] [address] MICRO OTHER TESTSOrdered By: Hoang Chris on 06-23-2023 Rapid COV Int NEG Ctl Pass (06/23/23 2:12 AM) Normal [facility] Man Sero Rapid COV Int POS Ctl Pass (06/23/23 2:12 AM) Normal [facility] Sero SARS-CoV+SARS-CoV-2 (COVID-19) Ag IA.rapid Ql (Resp) Not Detected 11 (06/23/23 2:12 AM) Normal Not Detected [facility] Comment on above: Interpretive Data: Bob melendez [employer] Veritor System for Rapid Detection of SARS-CoV-2 is a chromatographic digital immunoassay intended for the direct and qualitative detection of SARS-CoV-2 nucleocapsid antigens in nasal swabs from individuals who are suspected of COVID-19 by their healthcare provider within the first five days of the onset of symptoms. Negative results should be treated as presumptive, do not rule out SARS-CoV-2 infection and should not be used as the sole basis for treatment or patient management decisions, including infection control decisions. Negative results should be considered in the context of a patient s recent exposures, history and the presence of clinical signs and symptoms consistent with COVID-19, and confirmed with a molecular assay, if necessary, for patient management. For in vitro diagnostic use. In the [place], only for use under an Emergency Use Authorization. In the [place], this test has not been FDA cleared or approved; this test has been authorized by FDA under an EUA for use by authorized laboratories; use by laboratories certified under the CLIA, 42 U.S.C. 263a, that meet requirements to perform moderate, high, or waived complexity tests and at the Point of Care (POC), i.e., in patient care settings operating under a CLIA Certificate of Waiver, Certificate of Compliance, or Certificate of Accreditation. This test has been authorized only for the detection of proteins from SARS-CoV-2, not for any other viruses or pathogens; and, in the [place], this test is only authorized for the duration of the declaration that circumstances exist justifying the authorization of emergency use of in vitro diagnostics for detection and/or diagnosis of the virus that causes COVID-19 under Section 564(b)(1) of the Act, 21 U.S.C. 360bbb-3(b)(1), unless the authorization is terminated or revoked sooner. Magnesiumon 06-23-2023 Magnesium [Mass/Vol] 1.8 mg/dL Normal 1.3-2.4 [facility] Comment on above: Performed By: #### 2 [id number], [id number] #### [facility] [address] [place] [address] Message from Medicareon 06-11 Message from Medicare [id number]#1.00TIFF Normal [facility] Monitor Recordon 06-23-2023 Monitor Record [id number]#1.00TIFF Normal [facility] Monitor Record [id number]#1.00TIFF Normal [facility] Monitor Record [id number]#1.00TIFF Normal [facility] Monitor Record [id number]#1.00TIFF Normal [facility] PT & PTTon 06-23-2023 aPTT Coag (PPP) [Time] 30.4 second(s) Normal 25.1-36.5 [facility] Comment on above: Result Comment: Para meter 15 days - 4 weeks 1 - 5 months 6 - 11 months 1 - 5 years 6 - 10 years 11 - 17 years PTT Mean: 35.4 (27.6-45.6) Mean: 33.5 (24.8-40.7) Mean: 32.4 (25.1-40.7) Mean: 31.6 (24.0-39.2) Mean: 31.6 (26.9-38.7) Mean: 31.0 (24.6-38.4) Pediatric Reference ranges were obtained from a study by per Abraham al. prepared from 1437 samples obtained at 7 different centers using the same coagulation reagent and instrumentation as [facility]. Currently there are no coagulation studies available worldwide for children to 14 days, and no normal ranges. Heparin therapeutic range (represented by Anti-Factor Xa activity of 0.2 - 0.4 U/mL) corresponds to PTT of 56.6 - 109.0 sec. Performed By: #### 2 [id number], [id number] #### [facility] [address] [place] [address] INR Coag (PPP) [Relative time] 1.0 {INR} Invalid Interpretation Code [facility] Comment on above: Result Comment: INR results are specifically intended to assess patients stabilized on long-term Anticoagulation therapy suggested INR?s ?Less Intensive Anticoagulation? 2.0 ? 3.0 Conventional Range 3.0 ? 4.5 Performed By: #### 2 [id number], [id number] #### [facility] [address] [place] [address] PT Coag (PPP) [Time] 11.7 second(s) Normal 9.4-12.5 [facility] Comment on above: Result Comment: 15 d ays - 4 weeks 1 - 5 months 6 -11 months 1 ? 5 years 6 ? 10 years 11 -17 years Mean: 11.2 (9.5 ? 12.6) Mean: 11.0 (9.7 ? 12.8) Mean: 11.0 (9.8 ? 13.0) Mean: 11.3 (9.9 ? 13.4) Mean: 11.7 (10.0 ? 14.6) Mean: 11.8 (10.0 - 14.1) Pediatric Reference ranges were obtained from a study by per Abraham al. prepared from 1437 samples obtained at 7 different centers using the same coagulation reagent and instrumentation as [facility]. Currently there are no coagulation studies available worldwide for children to 14 days, and no normal ranges. Performed By: #### 2 [id number], [id number] #### [facility] [address] [place] [address] Patient Education - Texton 0 1-13-2024 Patient Education - Text Neurology Weakness Weakness is a lack of strength. You may feel weak all over your body (generalized), or you may feel weak in one part of your body (focal). There are many potential causes of weakness. Sometimes, the cause of your weakness may not be known. Some causes of weakness can be serious, so it is important to see your doctor. Follow these instructions at home: Activity ? Rest as needed. ? Try to get enough sleep. Most adults need 7?8 hours of sleep each night. Talk to your doctor about how much sleep you need. ? Do exercises, such as arm curls and leg raises, for 30 minutes at least 2 days a week or as told by your doctor. ? Think about working with a physical therapist or business trainer to help you get stronger. General instructions ? Take jmcj-yud-onywjyt and prescription medicines only as told by your doctor. ? Eat a healthy, well-balanced diet. This includes: ? Proteins to build muscles, such as lean meats and fish. ? Fresh fruits and vegetables. ? Carbohydrates to boost energy, such as whole grains. ? Drink enough fluid to keep your pee (urine) pale yellow. ? Keep all follow-up visits. Contact a doctor if: ? Your weakness does not get better or it gets worse. ? Your weakness affects your ability to: ? Think clearly. ? Do your normal daily activities. Get help right away if: ? You have sudden weakness on one side of your face or body. ? You have chest pain. ? You have trouble breathing or shortness of breath. ? You have problems with how you see (vision). ? You have trouble talking or swallowing. ? You have trouble standing or walking. ? You are light-headed or faint. These symptoms may be an emergency. Get help right away. Call 911. ? Do not wait to see if the symptoms will go away. ? Do not drive yourself to the hospital. Summary ? Weakness is a lack of strength. You may feel weak all over your body or just in one part of your body. ? There are many potential causes of weakness. Sometimes, the cause of your weakness may not be known. ? Rest as needed, and try to get enough sleep. Most adults need 7?8 hours of sleep each night. ? Eat a healthy, well-balanced diet. This information is not intended to replace advice given to you by your health care provider. Make sure you discuss any questions you have with your health care provider. Document Revised: 04/30/2022 Document Reviewed: 04/30/2022 [employer] Patient Education ? 2022 [employer]. Obstetrics and Gynecology Urinary Tract Infection, Adult A urinary tract infection (UTI) is an infection of any part of the urinary tract. The urinary tract includes the kidneys, ureters, bladder, and urethra. These organs make, store, and get rid of urine in the body. An upper UTI affects the ureters and kidneys. A lower UTI affects the bladder and urethra. What are the causes? Most urinary tract infections are caused by bacteria in your genital area around your urethra, where urine leaves your body. These bacteria grow and cause inflammation of your urinary tract. What increases the risk? You are more likely to develop this condition if: ? You have a urinary catheter that stays in place. ? You are not able to control when you urinate or have a bowel movement (incontinence). ? You are female and you: ? Use a spermicide or diaphragm for control. ? Have low estrogen levels. ? Are . ? You have certain genes that increase your risk. ? You are sexually active. ? You take antibiotic medicines. ? You have a condition that causes your flow of urine to slow down, such as: ? An enlarged prostate, if you are male. ? Blockage in your urethra. ? A kidney stone. ? A nerve condition that affects your bladder control (neurogenic bladder). ? Not getting enough to drink, or not urinating often. ? You have certain medical conditions, such as: ? Diabetes. ? A weak disease-fighting system (immunesystem). ? Sickle cell disease. ? Gout. ? Spinal cord injury. What are the signs or symptoms? Symptoms of this condition include: ? Needing to urinate right away (urgency). ? Frequent urination. This may include small amounts of urine each time you urinate. ? Pain or burning with urination. ? Blood in the urine. ? Urine that smells bad or unusual. ? Trouble urinating. ? Cloudy urine. ? Vaginal discharge, if you are female. ? Pain in the abdomen or the lower back. You may also have: ? Vomiting or a decreased appetite. ? Confusion. ? Irritability or tiredness. ? A fever or chills. ? Diarrhea. The first symptom in older adults may be confusion. In some cases, they may not have any symptoms until the infection has worsened. How is this diagnosed? This condition is diagnosed based on your medical history and a physical exam. You may also have other tests, including: ? Urine tests. ? Blood tests. ? Tests for STIs (sexually transmitted (more content not included)... Normal [facility] Pre-Arrival Noteon Pre-Arrival Note Pre-Arrival Summary Name: blaine Current Date: 06/23/2023 01:37:08 EST Gender: Date of : Age: Pre-Arrival Type: EMS ETA: 06/23/2023 01:53:00 EST Primary Care Physician: Presenting Problem: possible stroke Pre-Arrival User: Tejal Gold RN Referring Source: Location: [place] Completion Date/Time: 06/23/2023 01:23:00 [facility] Emergency Department Pre-Hospital Report Form _ Vital Signs: Pre-Hospital Report: Treatment in Route: Response to Treatment: Misc. Issues: Normal [facility] RAD - Preliminary Cat Scan R eporton 06-23-2023 RAD - Preliminary Cat Scan Report [id number]#1.00TIFF Normal [facility] Rapid COVID Antigen (MC)on 06-23-2023 Rapid COV Int NEG Ctl Pass [facility] Comment on above: Performed By: #### 2 [id number], [id number] #### [facility] [address] [place] [address] Rapid COV Int POS Ctl Pass Normal [facility] Comment on above: Performed By: #### 2 [id number], [id number] #### [facility] [address] [place] [address] SARS-CoV+SARS-CoV-2 (COVID-19) Ag IA.rapid Ql (Resp) Not detected Normal Not Detected [facility] Comment on above: Result Comment: The [employer]? System for Rapid Detection of SARS-CoV-2 is a chromatographic digital immunoassay intended for the direct and qualitative detection of SARS-CoV-2 nucleocapsid antigens in nasal swabs from individuals who are suspected of COVID-19 by their healthcare provider within the first five days of the onset of symptoms. Negative results should be treated as presumptive, do not rule out SARS-CoV-2 infection and should not be used as the sole basis for treatment or patient management decisions, including infection control decisions. Negative results should be considered in the context of a patient?s recent exposures, history and the presence of clinical signs and symptoms consistent with COVID-19, and confirmed with a molecular assay, if necessary, for patient management. For in vitro diagnostic use. In the [place], only for use under an Emergency Use Authorization. In the [place], this test has not been FDA cleared or approved; this test has been authorized by FDA under an EUA for use by authorized laboratories; use by laboratories certified under the CLIA, 42 U.S.C. ?263a, that meet requirements to perform moderate, high, or waived complexity tests and at the Point of Care (POC), i.e., in patient care settings operating under a CLIA Certificate of Waiver, Certificate of Compliance, or Certificate of Accreditation. This test has been authorized only for the detection of proteins from SARS-CoV-2, not for any other viruses or pathogens; and, in the [facility], this test is only authorized for the duration of the declaration that circumstances exist justifying the authorization of emergency use of in vitro diagnostics for detection and/or diagnosis of the virus that causes COVID-19 under Section 564(b)(1) of the Act, 21 U.S.C. ? 360bbb-3(b)(1), unless the authorization is terminated or revoked sooner. Performed By: #### 2 [id number], [id number] #### [address] [address] TSH With T4fr Reflexon 06-23 TSH Qn 0.68 m[IU]/L Normal 0.34-5.60 [facility] Comment on above: Performed By: #### 2 [id number], [id number] #### [facility] [address] [place] [address] Troponin 0 Hr.on 06-23-2023 Troponin 42.70 pg/mL Abnormal 10.10-27.10 [facility] Comment on above: Result Comment: Crit ical Result Verified by Repeat Analysis Critical Result I_TnIHS:42.7 Called to and read back by: AMNA BRANDON at: 06/23/2023 02:43:02 by:ROXANA The 95% CI (Confidence Interval) PPV (Positive Predictive Value) for myocardial infarction in females is 38 pg/mL, in males 51 pg/mL. The results should be used in conjunction with clinical conditions of myocardial infarction. (Access High Sensitivity Troponin I Instructions For Use, [employer], January 2018) Performed By: #### 2 [id number], [id number] #### [facility] [address] [place] [address] Troponin 3 Hr.on 06-23-2023 Troponin 116.80 pg/mL Abnormal 10.10-27.10 [facility] Comment on above: Result Comment: Crit ical Result Verified by Repeat Analysis Critical Result I_TnIHS:116.8 Called to and read back by: ELIAN QUIGLEY at: 06/23/2023 06:19:20 by:SYDNI The 95% CI (Confidence Interval) PPV (Positive Predictive Value) for myocardial infarction in females is 38 pg/mL, in males 51 pg/mL. The results should be used in conjunction with clinical conditions of myocardial infarction. (Access High Sensitivity Troponin I Instructions For Use, [employer], January 2018) Performed By: #### 1 [id number] #### [facility] [address] [place] [address] Troponin 6 Hr.on 06-23-2023 Troponin 183.20 pg/mL Abnormal 10.10-27.10 [facility] Comment on above: Result Comment: Crit ical Result Verified by Previous Result Critical Result I_TnIHS:183.2 Called to and read back by: TATIANA MUNSON at: 06/23/2023 09:12:46 by:SYDNI The 95% CI (Confidence Interval) PPV (Positive Predictive Value) for myocardial infarction in females is 38 pg/mL, in males 51 pg/mL. The results should be used in conjunction with clinical conditions of myocardial infarction. (Access High Sensitivity Troponin I Instructions For Use, [employer], January 2018) Performed By: #### 1 [id number] #### [facility] [address] [place] [address] Troponin 9 Hr.on 06-23-2023 Troponin 187.00 pg/mL Abnormal 10.10-27.10 [facility] Comment on above: Result Comment: Crit ical Result Verified by Previous Result Critical Result I_TnIHS:187.0 Called to and read back by: ANGEL RESTREPO at: 06/23/2023 12:10:53 by:SYDNI The 95% CI (Confidence Interval) PPV (Positive Predictive Value) for myocardial infarction in females is 38 pg/mL, in males 51 pg/mL. The results should be used in conjunction with clinical conditions of myocardial infarction. ([employer] High Sensitivity Troponin I Instructions For Use, [employer], January 2018) Performed By: #### 1 [id number] ####[facility] [id number] [place] [address] UA With Cult Reflexon 2023 Bacteria LM Ql (Urine sed) 1+ /HPF Abnormal Trace [facility] Comment on above: Performed By: #### 1 [id number], [id number] #### [facility] [address] [place] [address] Bilirubin Ql (U) Negative Normal Negative [facility] Comment on above: Performed By: #### 1 [id number], [id number] #### [facility] [address] [place] [address] Clarity (U) SL CLOUDY Abnormal Clear [facility] Comment on above: Performed By: #### 1 [id number], [id number] #### [facility] [address] [place] [address] Color (U) YELLOW Normal Yellow [facility] Comment on above: Performed By: #### 1 [id number], [id number] #### [facility] [address] [place] [address] Epithelial cells.squamous LM.HPF (Urine sed) [#/Area] 0-2 Normal 0-2 [facility] Comment on above: Performed By: #### 1 [id number], [id number] #### [facility] [address] [place] [address] Glucose Test strip (U) [Mass/Vol] Negative Normal Negative [facility] Comment on above: Performed By: #### 1 [id number], [id number] #### [facility] [address] [place] [address] Hemoglobin Ql (U) Negative Normal Negative [facility] Comment on above: Performed By: #### 1 [id number], [id number] #### [facility] [address] [place] [address] Ketones (U) [Mass/Vol] Negative Normal Negative [facility] Comment on above: Performed By: #### 1 [id number], [id number] #### [facility] [address] [place] [address] [place].plasma/Lithi um.RBC (Bld) [Mass ratio] 0-3 Normal 0-3 [facility] Comment on above: Performed By: #### 1 [id number], [id number] #### [facility] [address] [place] [address] Nitrite Ql (U) Negative Normal Negative [facility] Comment on above: Performed By: #### 1 [id number], [id number] #### [facility] [address] [place] [address] pH (U) 7.5 [pH] Invalid Interpretation Code 5.0-9.0 [facility] Comment on above: Performed By: #### 1 [id number], [id number] #### [facility] [address] [place] [address] Protein (U) [Mass/Vol] Negative Normal Negative [facility] Comment on above: Performed By: #### 1 [id number], [id number] #### [facility] [address] [place] [address] Specific gravity (U) [Rel density] 1.015 Invalid Interpretation Code 1.005-1.030 [facility] Comment on above: Performed By: #### 1 [id number], [id number] #### [facility] [address] [place] [address] Urobilinogen Qn (U) 0.2 {Phoebe'U}/dL Normal 0.0-1.0 [facility] Comment on above: Performed By: #### 1 [id number], [id number] #### [facility] [address] [place] [address] WBC Auto Ql (U) 1+ Abnormal Negative [facility] Comment on above: Performed By: #### 1 [id number], [id number] #### [facility] [address] [place] [address] WBC LM.HPF (Urine sed) [#/Area] 6-15 Abnormal 0-5 [facility] Comment on above: Performed By: #### 1 [id number], [id number] #### [facility] [address] [place] [address] URINALYSISOrdered By: Hoang Chris on 06-23-2023 Bacteria LM Ql (Urine sed) 1+ /HPF Invalid Interpretation Code Trace/HPF [facility] UA Auto SS Bilirubin Ql (U) Negative (06/23/23 3:01 AM) Normal Negative [facility] UA Auto SS Clarity (U) Slightly Cloudy *ABN* (06/23/23 3:01 AM) Invalid Interpretation Code Clear [facility] UA Auto SS Color (U) Yellow (06/23/23 3:01 AM) Normal Yellow [facility] UA Auto SS Epithelial cells.squamous LM.HPF (Urine sed) [#/Area] 0-2 /HPF Normal 0-2/HPF [facility] UA Auto SS Glucose Test strip (U) [Mass/Vol] Negative (06/23/23 3:01 AM) Normal Negative [facility] UA Auto SS Hemoglobin Ql (U) Negative (06/23/23 3:01 AM) Normal Negative [facility] UA Auto SS Ketones (U) [Mass/Vol] Negative (06/23/23 3:01 AM) Normal Negative [facility] UA Auto SS [place].plasma/Lithi um.RBC (Bld) [Mass ratio] 0-3 /HPF Normal 0-3/HPF [facility] UA Auto SS Nitrite Ql (U) Negative (06/23/23 3:01 AM) Normal Negative [facility] UA Auto SS pH (U) 7.5 *NA* (06/23/23 3:01 AM) Invalid Interpretation Code 5.0 - 9.0 [facility] UA Auto SS Protein (U) [Mass/Vol] Negative (06/23/23 3:01 AM) Normal Negative [facility] UA Auto SS Specific gravity (U) [Rel density] 1.015 *NA* (06/23/23 3:01 AM) Invalid Interpretation Code 1.005 - 1.030 [facility] UA Auto SS UA Spec Desc Clean Catch (06/23/23 3:01 AM) Normal [facility] UA Auto SS Urobilinogen Qn (U) 0.8884238 {Phoebe'U}/dL Normal 0.0 - 1.0 EU/dL [facility] UA Auto SS WBC Auto Ql (U) 1+ *ABN* (06/23/23 3:01 AM) Invalid Interpretation Code Negative [facility] UA Auto SS WBC LM.HPF (Urine sed) [#/Area] 6-15 /HPF Invalid Interpretation Code 0-5/HPF [facility] UA Auto SS XR Chest Single Viewon 06-23 XR Chest Single View Exam Date/Time: 06/23/2023 02:07 EST Reason for Exam: Chest pain Report IMPRESSION: There are no acute cardiopulmonary changes. CLINICAL HISTORY: Chest pain EXAMINATION: XR Chest Single View COMPARISON: FINDINGS: The cardiomediastinal silhouette is unremarkable. The lungs are free of infiltrates effusions or consolidations. There are no acute osseous changes. Ordering Provider: Augie Sidhu FINAL REPORT Dictated: 06/23/2023 8:10 am Miguel A Joseph MD, V. Signed (Electronic Signature): 06/23/2023 8:10 am Signed by: Miguel A Joseph MD, V. Transcribed by: OTONIEL Technologist: YOLY Technical Comments Radiation Dose: Ka,r in mGy = na DAP = na Normal [facility] eGFRon 01-13-2024 GFR/1.73 sq M.predicted among non-blacks MDRD (S/P/Bld) [Vol rate/Area] mL/min/{1.73_m2} Normal >=59 [facility] Comment on above: Order Comment: Order added by Discern Expert. Performed By: #### 2 [id number], [id number] #### [facility] [address] [place] [address] Creatinine (Bld) [Mass/Vol]O rdered By: Cathie Reid on 05-15-2023 Creatinine [Mass/Vol] 1.0 mg/dL 0.6-1.3 [facility] Comment on above: ER/ESD physician is notified/shown all ISTAT results.Critical values may be confirmed by laboratory testing ifdeemed necessary by ER attending doctor. ISTAT XRay CREon 05-15-2023 Creatinine [Mass/Vol] 1.0 mg/dL Normal 0.6-1.3 [facility] Comment on above: Result Comment: ER/E SD physician is notified/shown all ISTAT results. Critical values may be confirmed by laboratory testing if deemed necessary by ER attending doctor. Performed By: #### I SCRE #### [facility] [address] [place] [address] ISTAT GFR 58.023 Normal [facility] Comment on above: Result Comment: PERF ORMED BY: [place] [address] PATHOLOGIST SLEEP SCIENTIST MARISOL AGUSTIN M.D. Performed By: #### I SCRE #### [facility] [address] [place] [address] MR head/brain wo/w conon MR head/brain wo/w con [facility] [address] [place] [address] [place] [address] MRI Report Signed Patient: Judith Khan MR#: [id number] 320 : 1945 Acct:[id number] Age/Sex: 78 / F ADM Date: 05/15/23 Loc: MR Room: Type: [facility] Attending Dr: Cathie CRAIGC Copies to: DIXIE Eng Ordering Provider: DIXIE [...] Adeel Meyer M.D.05/15/2023 5:24 PM Dictation Location: [place] [address] Transcribed By: [facility] 05/15/23 172 Dictated By: Adeel Meyer II, MD 05/15/23 171 Signed By: 05/15/231723 [facility] No Panel InformationOrdered By: Cathie Reid on 05-15-2023 Bedside Estimated GFR (eGFR) 58.023 [facility] 37on 01-12-2023 37 Hold metoprolol and see if fatigue levels improve Continue all other medications Monitor blood pressure 1-2 times a day and if it increases greater than 130/80 please call the office for medication adjustment, or for tachycardia/palpitations Normal [facility] Office Visiton 01-12-2023 Follow-up visit [id number] RhettbrianDonato chua raffy Davis 1945 F Date Provider Department Center 01/12/2023 [facility] Family History Problem Relation Age of Onset Stroke Mother Stroke Brother Other Mother's Sister Coronary artery disease Mother's Sister Stroke Maternal Grandmother Family Status - Relation Status Age at Mother Brother Mother's Sister Maternal Grandmother Level of Service:[address] [place] OFFICE/OUTPATIENT ESTABLISHED LOW MDM 20-29 MIN Normal [facility] BNPon 10-09-2022 Natriuretic peptide B (Bld) [Mass/Vol] 90.0 pg/mL Normal <=1,800.0 [facility] Comment on above: Performed By: #### M G, CMP, TSH, T7, BNP #### [facility] [address] [place] [address] Dr. Glenys Holly CBC AUTO DIFFon 10-09-2022 BASO # 0.1 103/ul Normal 0.0-0.1 [facility] Comment on above: Performed By: #### M G, CMP, TSH, T7, BNP #### [facility] [address] [place] [address] [address] Glenys Holly Basophils/100 WBC (Bld) 1.0 % Normal 0.2-2.0 [facility] Comment on above: Performed By: #### M G, CMP, TSH, T7, BNP #### [facility] [address] [place] [address] [address] Glenys Holly EO # 0.5 103/ul Normal 0.0-0.7 [facility] Comment on above: Performed By: #### M G, CMP, TSH, T7, BNP #### [facility] [address] [place] [address] Dr. Glenys Holly Eosinophils/100 WBC (Bld) 6.4 % Normal 0.9-7.0 [facility] Comment on above: Performed By: #### M G, CMP, TSH, T7, BNP #### [facility] [address] [place] [address] Dr. Glenys Holly Erythrocyte distribution width (RBC) [Ratio] 15.4 % Critically high 11.0-15.0 [facility] Comment on above: Performed By: #### M G, CMP, TSH, T7, BNP #### [facility] [address] [place] [address] Dr. Glenys Holly Hematocrit (Bld) [Volume fraction] 42.8 % Normal 36.0-48.0 [facility] Comment on above: Performed By: #### M G, CMP, TSH, T7, BNP #### [facility] [address] [place] [address] Dr. Glenys Holly Hemoglobin (Bld) [Mass/Vol] 14.1 g/dL Normal 12.0-16.0 [facility] Comment on above: Performed By: #### M G, CMP, TSH, T7, BNP #### [facility] [address] [place] [address] Dr. Glenys Holly IG # 0.01 10e3/ul Normal 0.00-0.03 [facility] Comment on above: Performed By: #### M G, CMP, TSH, T7, BNP #### [facility] [address] [place] [address] Dr. Glenys Holly IG % 0.1 % Normal 0.0-0.5 [facility] Comment on above: Performed By: #### M G, CMP, TSH, T7, BNP #### [facility] [address] [place] [address] Dr. Glenys Holly LYMPH # 3.3 103/ul Normal 1.2-3.8 [facility] Comment on above: Performed By: #### M G, CMP, TSH, T7, BNP #### [facility] [address] [place] [address] Dr. Glenys Holly Lymphocytes/100 WBC (Bld) 44.2 % Normal 20.5-60.0 [facility] Comment on above: Performed By: #### M G, CMP, TSH, T7, BNP #### [facility] [address] [place] [address] Dr. Glenys Holly MANUAL DIFF REQ NO Normal [facility] Comment on above: Performed By: #### M G, CMP, TSH, T7, BNP #### [facility] [address] [place] [address] Dr. Glenys Holly MCH (RBC) [Entitic mass] 30.3 pg Normal 26.7-34.0 [facility] Comment on above: Performed By: #### M G, CMP, TSH, T7, BNP #### [facility] [address] [place] [address] Dr. Glenys Holly MCHC (RBC) [Mass/Vol] 32.9 g/dL Normal 29.9-35.2 [facility] Comment on above: Performed By: #### M G, CMP, TSH, T7, BNP #### [facility] [address] [place] [address] Dr. Glenys Holly MCV (RBC) [Entitic vol] 92.0 fL Normal 81.0-99.0 [facility] Comment on above: Performed By: #### M G, CMP, TSH, T7, BNP #### [facility] [address] [place] [address] Dr. Glenys Holly MONO # 1.2 103/ul Critically high 0.3-0.8 [facility] Comment on above: Performed By: #### M G, CMP, TSH, T7, BNP #### [facility] [address] [place] [address] Dr. Glenys Holly Monocytes/100 WBC (Bld) 16.4 % Critically high 1.7-12.0 [facility] Comment on above: Performed By: #### M G, CMP, TSH, T7, BNP #### [facility] [address] [place] [address] Dr. Glenys Holly NEUT # 2.4 103/ul Normal 1.4-6.5 [facility] Comment on above: Performed By: #### M G, CMP, TSH, T7, BNP #### [facility] [address] [place], [place] [id number] Dr. Glenys Holly Neutrophils/100 WBC (Bld) 31.9 % Critically low 43.0-75.0 [facility] Comment on above: Performed By: #### M G, CMP, TSH, T7, BNP #### [facility] [address] [place] [address] [address] Glenys Holly Platelet mean volume (Bld) [Entitic vol] 10.3 fL Normal 9.5-13.5 [facility] Comment on above: Performed By: #### M G, CMP, TSH, T7, BNP #### [facility] [address] [place] [address] Dr. Glenys Holly PLT 379 103/ul Normal 150-450 [facility] Comment on above: Performed By: #### M G, CMP, TSH, T7, BNP #### [facility] [address] [place] [address] Dr. Glenys Holly RBC 4.65 106/ul Normal 4.20-5.40 [facility] Comment on above: Performed By: #### M G, CMP, TSH, T7, BNP #### [facility] [address] [place] [address] Dr. Glenys Holly WBC 7.4 103/ul Normal 4.0-11.0 [facility] Comment on above: Performed By: #### M G, CMP, TSH, T7, BNP #### [facility] [address] [place] [address] Dr. Glenys Holly FERRITINon 10-09-2022 Ferritin [Mass/Vol] 68.0 ng/mL Normal 8.0-252.0 [facility] Comment on above: Performed By: #### F ERR, IRON, VITAD ####[facility] [address] [place] [address]Dr. Glenys Holly FREE THYROXINE INDEX T7on FTI 3.10 Normal 1.30-4.50 [facility] Comment on above: Performed By: #### M G, CMP, TSH, T7, BNP #### [facility] [address] [place] [address] Dr. Glenys Holly T3U 36.0 % Normal 30.0-39.0 [facility] Comment on above: Performed By: #### M G, CMP, TSH, T7, BNP #### [facility] [address] [place] [address] [address] Glenys Holly T4 [Mass/Vol] 8.60 ug/dL Normal 4.80-13.90 [facility] Comment on above: Performed By: #### M G, CMP, TSH, T7, BNP #### [facility] [address] [place] [address] [address] Glenys Holly IRONon 10-09-2022 Iron [Mass/Vol] 52.0 ug/dL Normal 50.0-170.0 [facility] Comment on above: Performed By: #### F ERR, IRON, VITAD ####[facility] [id number] [place] [address]Dr. Glenys Holly MAGNESIUMon 10-09-2022 Magnesium [Mass/Vol] 2.0 mg/dL Normal 1.8-2.4 [facility] Comment on above: Performed By: #### M G, CMP, TSH, T7, BNP #### [facility] [address] [place] [address] [address] Glenys Holly PROF 14(COMP METB)on 023 Albumin [Mass/Vol] 3.5 g/dL Normal 3.4-5.0 [facility] Comment on above: Performed By: #### M G, CMP, TSH, T7, BNP #### [facility] [address] [place] [address] [address] Glenys Holly Albumin/Globulin [Mass ratio] 1.0 {ratio} Normal [facility] Comment on above: Performed By: #### M G, CMP, TSH, T7, BNP #### [facility] [address] [place] [address] [address] Glenys Holly ALP [Catalytic activity/Vol] 134 U/L Critically high 46-116 [facility] Comment on above: Performed By: #### M G, CMP, TSH, T7, BNP #### [facility] [address] [place] [address] [address] Glenys Holly ALT [Catalytic activity/Vol] 34 U/L Normal 14-59 [facility] Comment on above: Performed By: #### M G, CMP, TSH, T7, BNP #### [facility] [address] [place] [address] [address] Glenys Holly Anion gap [Moles/Vol] 8.8 mmol/L Normal [facility] Comment on above: Performed By: #### M G, CMP, TSH, T7, BNP #### [facility] [address] [place] [address] [address] Glenys Holly AST [Catalytic activity/Vol] 19 U/L Normal 15-37 [facility] Comment on above: Performed By: #### M G, CMP, TSH, T7, BNP #### [facility] [address] [place] [address] Dr. Glenys Holly Bilirubin [Mass/Vol] 0.2 mg/dL Normal 0.2-1.0 [facility] Comment on above: Performed By: #### M G, CMP, TSH, T7, BNP #### [facility] [address] [place] [address] [address] Glenys Holly Calcium [Mass/Vol] 10.6 mg/dL Critically high 8.5-10.1 [facility] Comment on above: Performed By: #### M G, CMP, TSH, T7, BNP #### [facility] [address] [place] [address] [address] Glenys Holly Chloride [Moles/Vol] 105 mmol/L Normal 98-107 [facility] Comment on above: Performed By: #### M G, CMP, TSH, T7, BNP #### [facility] [address] [place] [address] [address] Glenys Holly CO2 [Moles/Vol] 30.0 mmol/L Normal 21.0-32.0 [facility] Comment on above: Performed By: #### M G, CMP, TSH, T7, BNP #### [facility] [address] [place] [address] [address] Glenys Holly Creatinine [Mass/Vol] 0.86 mg/dL Normal 0.55-1.02 [facility] Comment on above: Performed By: #### M G, CMP, TSH, T7, BNP #### [facility] [address] [place] [address] [address] Glenys Holly EGFR-AF JAMAICAN >60 Normal >=60 [facility] Comment on above: Performed By: #### M G, CMP, TSH, T7, BNP #### [facility] [address] [place] [address] [address] Glenys Holly EGFR-NON AF [place]ICAN >60 Normal >=60 [facility] Comment on above: Performed By: #### M G, CMP, TSH, T7, BNP #### [facility] [address] [place] [address] Dr. Glenys Holly Globulin (S) [Mass/Vol] 3.5 g/dL Normal [facility] Comment on above: Performed By: #### M G, CMP, TSH, T7, BNP #### [facility] [address] [place] [address] Dr. Glenys Holly Glucose [Mass/Vol] 99 mg/dL Normal 74-106 [facility] Comment on above: Performed By: #### M G, CMP, TSH, T7, BNP #### [facility] [address] [place] [address] Dr. Glenys Holly Potassium [Moles/Vol] 3.8 mmol/L Normal 3.5-5.1 [facility] Comment on above: Performed By: #### M G, CMP, TSH, T7, BNP #### [facility] [address] [place] [address] Dr. Glenys Holly Protein [Mass/Vol] 7.0 g/dL Normal 6.4-8.2 [facility] Comment on above: Performed By: #### M G, CMP, TSH, T7, BNP #### [facility] [address] [place] [address] Dr. Glenys Holly Sodium [Moles/Vol] 140 mmol/L Normal 136-145 [facility] Comment on above: Performed By: #### M G, CMP, TSH, T7, BNP #### [facility] [address] [address] [address] Glenys Holly Urea nitrogen [Mass/Vol] 25.0 mg/dL Critically high 7.0-18.0 [facility] Comment on above: Performed By: #### M G, CMP, TSH, T7, BNP #### [facility] [address] [address] [address] Glenys Holly Urea nitrogen/Creatinine [Mass ratio] 29.1 mg/mg Normal [facility] Comment on above: Performed By: #### M G, CMP, TSH, T7, BNP #### [facility] [address] [address] [address] Glenys Holly TSHon 10-09-2022 TSH 1.720 uIU/mL Normal 0.358-3.740 [facility] Comment on above: Performed By: #### M G, CMP, TSH, T7, BNP #### [facility] [address] [address] [address] Glenys Holly VITAMIN D 25 OHon 10-09-2022 VIT D 25-OH 89.3 ng/mL Normal [facility] Comment on above: Performed By: #### F ERR, IRON, VITAD ####[facility] [address] [id number]. Glenys Holly VIT D RANGES SEE BELOW Normal [facility] Comment on above: Result Comment: <20 ng/mL Vit D deficient 20 - <30 ng/mL Vit D insufficient 30 - 100 ng/mL Vit D sufficient >100 ng/mL Potential Toxicity Performed By: #### F ERR, IRON, VITAD ####[facility] [address] [id number]. Glenys Holly Office Visiton 07-19-2022 Follow-up visit [id number] Donato Khan 1945 F Date Provider Department Center 07/19/2022 Trey8STEPHENIE ORTEGA [facility] Family History Problem Relation Age of Onset Stroke Mother Stroke Brother Other Mother's Sister Coronary artery disease Mother's Sister Stroke Maternal Grandmother Family Status - Relation Status Age at Mother Brother Mother's Sister Maternal Grandmother Level of Service:[address] [place] OFFICE/OUTPATIENT ESTABLISHED LOW MDM 20-29 MIN Reason for Visit and Comments: Hyperlipidemia [182] Hypertension [052979] Normal [facility] NM STRESS/REST MULTIon 05-24 NM STRESS/REST MULTI Patient: Shana KHAN Exam Date: 05/24/2022 : 1945 Gender:F Ordering : DR RODRICK SAMS . Admission #: [id number] Family : Order #: [id number] CLICK HERE TO VIEW EXAM RADIOLOGY REPORT [...] medicine myocardial perfusion scan. Dictated by: Ramiro Spencer M.D. on 05/24/2022 at 16:00 Approved by: Ramiro Spencer M.D. on 05/24/2022 at 16:02 Normal [facility] BNPon 05-10-2022 Natriuretic peptide B (Bld) [Mass/Vol] 1305.0 pg/mL Normal <=1,800.0 [facility] Comment on above: Performed By: #### M G, CMP, TSH, T7, BNP #### [facility] [address] [place] [address] Dr. Glenys Holly CBC AUTO DIFFon 05-10-2022 BASO # 0.0 103/ul Normal 0.0-0.1 [facility] Comment on above: Performed By: #### M G, CMP, TSH, T7, BNP #### [facility] [address] [place] [address] Dr. Glenys Holly Basophils/100 WBC (Bld) 0.3 % Normal 0.2-2.0 [facility] Comment on above: Performed By: #### M G, CMP, TSH, T7, BNP #### [facility] [address] [place] [address] Dr. Glenys Holly EO # 0.0 103/ul Normal 0.0-0.7 [facility] Comment on above: Performed By: #### M G, CMP, TSH, T7, BNP #### [facility] [address] [place] [address] Dr. Glenys Holly Eosinophils/100 WBC (Bld) 0.1 % Critically low 0.9-7.0 [facility] Comment on above: Performed By: #### M G, CMP, TSH, T7, BNP #### [facility] [address] [place] [address] Dr. Glenys Holly Erythrocyte distribution width (RBC) [Ratio] 15.1 % Critically high 11.0-15.0 [facility] Comment on above: Performed By: #### M G, CMP, TSH, T7, BNP #### [facility] [address] [place] [address] Dr. Glenys Holly Hematocrit (Bld) [Volume fraction] 42.9 % Normal 36.0-48.0 [facility] Comment on above: Performed By: #### M G, CMP, TSH, T7, BNP #### [facility] [address] [place] [address] Dr. Glenys Holly Hemoglobin (Bld) [Mass/Vol] 14.6 g/dL Normal 12.0-16.0 [facility] Comment on above: Performed By: #### M G, CMP, TSH, T7, BNP #### [facility] [address] [place] [address] Dr. Glenys Holly IG # 0.05 10e3/ul Critically high 0.00-0.03 [facility] Comment on above: Performed By: #### M G, CMP, TSH, T7, BNP #### [facility] [address] [place] [address] Dr. Glenys Holly IG % 0.7 % Critically high 0.0-0.5 [facility] Comment on above: Performed By: #### M G, CMP, TSH, T7, BNP #### [facility] [address] [place] [address] Dr. Glenys Holly LYMPH # 1.6 103/ul Normal 1.2-3.8 [facility] Comment on above: Performed By: #### M G, CMP, TSH, T7, BNP #### [facility] [address] [place] [address] Dr. Glenys Holly Lymphocytes/100 WBC (Bld) 20.4 % Critically low 20.5-60.0 [facility] Comment on above: Performed By: #### M G, CMP, TSH, T7, BNP #### [facility] [address] [place] [address] Dr. Glenys Holly MANUAL DIFF REQ NO Normal [facility] Comment on above: Performed By: #### M G, CMP, TSH, T7, BNP #### [facility] [address] [place] [address] Dr. Glenys Holly MCH (RBC) [Entitic mass] 29.9 pg Normal 26.7-34.0 [facility] Comment on above: Performed By: #### M G, CMP, TSH, T7, BNP #### [facility] [address] [place] [address] Dr. Glenys Holly MCHC (RBC) [Mass/Vol] 34.0 g/dL Normal 29.9-35.2 [facility] Comment on above: Performed By: #### M G, CMP, TSH, T7, BNP #### [facility] [address] [place] [address] Dr. Glenys Holly MCV (RBC) [Entitic vol] 87.9 fL Normal 81.0-99.0 [facility] Comment on above: Performed By: #### M G, CMP, TSH, T7, BNP #### [facility] [address] [place] [address] Dr. Glenys Holly MONO # 0.7 103/ul Normal 0.3-0.8 [facility] Comment on above: Performed By: #### M G, CMP, TSH, T7, BNP #### [facility] [address] [place] [address] Dr. Glenys Holly Monocytes/100 WBC (Bld) 9.5 % Normal 1.7-12.0 [facility] Comment on above: Performed By: #### M G, CMP, TSH, T7, BNP #### [facility] [address] [place] [address] Dr. Glenys Holly NEUT # 5.2 103/ul Normal 1.4-6.5 [facility] Comment on above: Performed By: #### M G, CMP, TSH, T7, BNP #### [facility] [address] [place] [address] Dr. Glenys Holly Neutrophils/100 WBC (Bld) 69.0 % Normal 43.0-75.0 [facility] Comment on above: Performed By: #### M G, CMP, TSH, T7, BNP #### [facility] [address] [place] [address] Dr. Glenys Holly Platelet mean volume (Bld) [Entitic vol] 11.2 fL Normal 9.5-13.5 [facility] Comment on above: Performed By: #### M G, CMP, TSH, T7, BNP #### [facility] [address] [place] [address] Dr. Glenys Holly PLT 349 103/ul Normal 150-450 [facility] Comment on above: Performed By: #### M G, CMP, TSH, T7, BNP #### [facility] [address] [place] [address] Dr. Glenys Holly RBC 4.88 106/ul Normal 4.20-5.40 [facility] Comment on above: Performed By: #### M G, CMP, TSH, T7, BNP #### [facility] [address] [address] [address] Glenys Holly WBC 7.6 103/ul Normal 4.0-11.0 [facility] Comment on above: Performed By: #### M G, CMP, TSH, T7, BNP #### [facility] [address] [address] [address] Glenys Holly PROF 14(COMP METB)on 022 Albumin [Mass/Vol] 3.3 g/dL Critically low 3.4-5.0 [facility] Comment on above: Performed By: #### H STROPN, BNP, CMP ####[facility] [address] [address]DrRatna Holly Albumin/Globulin [Mass ratio] 1.1 {ratio} Normal [facility] Comment on above: Performed By: #### H STROPN, BNP, CMP ####[facility] [address] [address]DrRatna Holly ALP [Catalytic activity/Vol] 78 U/L Normal 46-116 [facility] Comment on above: Performed By: #### H STROPN, BNP, CMP ####[facility] [address] [address]DrRatna Holly ALT [Catalytic activity/Vol] 10 U/L Critically low 14-59 [facility] Comment on above: Performed By: #### H STROPN, BNP, CMP ####[facility] [address] [address]DrRatna Holly Anion gap [Moles/Vol] 11.2 mmol/L Normal [facility] Comment on above: Performed By: #### H STROPN, BNP, CMP ####[facility] [address] [address]DrRatna Holly AST [Catalytic activity/Vol] 15 U/L Normal 15-37 [facility] Comment on above: Performed By: #### H STROPN, BNP, CMP ####[facility] [address] [address]Dr. Glenys Holly Bilirubin [Mass/Vol] 0.4 mg/dL Normal 0.2-1.0 [facility] Comment on above: Performed By: #### H STROPN, BNP, CMP ####[facility] [address] [address]Dr. Glenys Holly Calcium [Mass/Vol] 8.9 mg/dL Normal 8.5-10.1 [facility] Comment on above: Performed By: #### H STROPN, BNP, CMP ####[facility] [address] [place], [place] [address]Dr. Glenys Holly Chloride [Moles/Vol] 98 mmol/L Normal 98-107 [facility] Comment on above: Performed By: #### H STROPN, BNP, CMP ####[facility] [address] [place], [place] [address]Dr. Glenys Holly CO2 [Moles/Vol] 31.1 mmol/L Normal 21.0-32.0 [facility] Comment on above: Performed By: #### H STROPN, BNP, CMP ####[facility] [address] [place], [place] [address]Dr. Glenys Holly Creatinine [Mass/Vol] 1.15 mg/dL Critically high 0.55-1.02 [facility] Comment on above: Performed By: #### H STROPN, BNP, CMP ####[facility] [address] [place], [place] [address]Dr. Glenys Holly EGFR-AF J[place]ICAN 56 mL/min/1.73m2 Critically low >=60 [facility] Comment on above: Performed By: #### H STROPN, BNP, CMP ####[facility] [address] [place], [place] [address]Dr. Glenys Holly EGFR-NON AF [place]ICAN 46 mL/min/1.73m2 Critically low >=60 [facility] Comment on above: Performed By: #### H STROPN, BNP, CMP ####[facility] [address] [address]Dr. Glenys Holly Globulin (S) [Mass/Vol] 3.0 g/dL Normal [facility] Comment on above: Performed By: #### H STROPN, BNP, CMP ####[facility] [address] [address]Dr. Glenys Holly Glucose [Mass/Vol] 107 mg/dL Critically high 74-106 [facility] Comment on above: Performed By: #### H STROPN, BNP, CMP ####[facility] [address] [address]Dr. Glenys Holly Potassium [Moles/Vol] 3.3 mmol/L Critically low 3.5-5.1 [facility] Comment on above: Performed By: #### H STROPN, BNP, CMP ####[facility] [address] [address]Dr. Glenys Holly Protein [Mass/Vol] 6.3 g/dL Critically low 6.4-8.2 [facility] Comment on above: Performed By: #### H STROPN, BNP, CMP ####[facility] [address] [place], [place] [address]Dr. Glenys Holly Sodium [Moles/Vol] 137 mmol/L Normal 136-145 [facility] Comment on above: Performed By: #### H STROPN, BNP, CMP ####[facility] [address] [address]Dr. Glenys Holly Urea nitrogen [Mass/Vol] 29.0 mg/dL Critically high 7.0-18.0 [facility] Comment on above: Performed By: #### H STROPN, BNP, CMP ####[facility] [address] [address]. Glenys Holly Urea nitrogen/Creatinine [Mass ratio] 25.2 mg/mg [facility] Comment on above: Performed By: #### H STROPN, BNP, CMP ####[facility] [address] [address]Dr. Glenys Holly TROPONIN, HIGH SENSITIVITYon 05-10-2022 HSTROP 50.5 pg/mL Normal 4.0-51.3 [facility] Comment on above: Result Comment: CUT- OFF POINTS HAVE BEEN ESTABLISHED BASED ON THE FOURTH UNIVERSAL DEFINITIONS OF MYOCARDIAL INFARCTION. THE UPPER REFERENCE LIMIT (URL) OF TROPONIN, DEFINED THE 99TH PERCENTILE OF cTnI DISTRIBUTION IN A REFERENCE POPULATION, HAS BEEN CONFIRMED THE DECISION THRESHOLD FOR MD DIAGNOSIS. Performed By: #### H STROPN, BNP, CMP ####[facility] [address] [place], [place] [address]Dr. Glenys Holly XR CHEST 2 Von 05-10-2022 [...] mild acute infiltrates. Electronically authenticated by: RAMIRO SPENCER Date: 2022-05-10 08:10 Normal [facility] BNPon 05-09-2022 Natriuretic peptide B (Bld) [Mass/Vol] 1975.0 pg/mL Critically high <=1,800.0 [facility] Comment on above: Performed By: #### M G, CMP, TSH, T7, BNP #### [facility] [address] [place], [place] [address] Dr. Glenys Holly CBC AUTO DIFFon 05-09-2022 BASO # 0.0 103/ul Normal 0.0-0.1 [facility] Comment on above: Performed By: #### M G, CMP, TSH, T7, BNP #### [facility] [address] [place], [place] [address] Dr. Glenys Holly Basophils/100 WBC (Bld) 0.4 % Normal 0.2-2.0 [facility] Comment on above: Performed By: #### M G, CMP, TSH, T7, BNP #### [facility] [address] [place] [address] Dr. Glenys Holly EO # 0.0 103/ul Normal 0.0-0.7 [facility] Comment on above: Performed By: #### M G, CMP, TSH, T7, BNP #### [facility] [address] [place] [address] Dr. Glenys Holly Eosinophils/100 WBC (Bld) 0.0 % Critically low 0.9-7.0 [facility] Comment on above: Performed By: #### M G, CMP, TSH, T7, BNP #### [facility] [address] [place] [address] Dr. Glenys Holly Erythrocyte distribution width (RBC) [Ratio] 15.2 % Critically high 11.0-15.0 [facility] Comment on above: Performed By: #### M G, CMP, TSH, T7, BNP #### [facility] [address] [place] [address] Dr. Glenys Holly Hematocrit (Bld) [Volume fraction] 41.7 % Normal 36.0-48.0 [facility] Comment on above: Performed By: #### M G, CMP, TSH, T7, BNP #### [facility] [address] [place] [address] Dr. Glenys Holly Hemoglobin (Bld) [Mass/Vol] 14.1 g/dL Normal 12.0-16.0 [facility] Comment on above: Performed By: #### M G, CMP, TSH, T7, BNP #### [facility] [address] [place] [address] Dr. Glenys Holly IG # 0.12 10e3/ul Critically high 0.00-0.03 [facility] Comment on above: Performed By: #### M G, CMP, TSH, T7, BNP #### [facility] [address] [place] [address] Dr. Glenys Holly IG % 1.2 % Critically high 0.0-0.5 [facility] Comment on above: Performed By: #### M G, CMP, TSH, T7, BNP #### [facility] [address] [place] [address] Dr. Glenys Holly LYMPH # 1.6 103/ul Normal 1.2-3.8 [facility] Comment on above: Performed By: #### M G, CMP, TSH, T7, BNP #### [facility] [address] [place] [address] Dr. Glenys Holly Lymphocytes/100 WBC (Bld) 16.0 % Critically low 20.5-60.0 [facility] Comment on above: Performed By: #### M G, CMP, TSH, T7, BNP #### [facility] [address] [place] [address] Dr. Glenys Holly MANUAL DIFF REQ NO Normal [facility] Comment on above: Performed By: #### M G, CMP, TSH, T7, BNP #### [facility] [address] [place] [address] Dr. Glenys Holly MCH (RBC) [Entitic mass] 30.0 pg Normal 26.7-34.0 [facility] Comment on above: Performed By: #### M G, CMP, TSH, T7, BNP #### [facility] [address] [place] [address] Dr. Glenys Holly MCHC (RBC) [Mass/Vol] 33.8 g/dL Normal 29.9-35.2 [facility] Comment on above: Performed By: #### M G, CMP, TSH, T7, BNP #### [facility] [address] [place] [address] Dr. Glenys Holly MCV (RBC) [Entitic vol] 88.7 fL Normal 81.0-99.0 [facility] Comment on above: Performed By: #### M G, CMP, TSH, T7, BNP #### [facility] [address] [place] [address] Dr. Glenys Holly MONO # 1.3 103/ul Critically high 0.3-0.8 The [facility] Comment on above: Performed By: #### M G, CMP, TSH, T7, BNP #### [facility] [address] [place] [address] Dr. Glenys Holly Monocytes/100 WBC (Bld) 13.2 % Critically high 1.7-12.0 [facility] Comment on above: Performed By: #### M G, CMP, TSH, T7, BNP #### [facility] [address] [address] [address] Glenys Holly NEUT # 6.8 103/ul Critically high 1.4-6.5 The [facility] Comment on above: Performed By: #### M G, CMP, TSH, T7, BNP #### [facility] [address] [place] [address] Dr. Glenys Holly Neutrophils/100 WBC (Bld) 69.2 % Normal 43.0-75.0 [facility] Comment on above: Performed By: #### M G, CMP, TSH, T7, BNP #### [facility] [address] [place] [address] Dr. Glenys Holly Platelet mean volume (Bld) [Entitic vol] 11.6 fL Normal 9.5-13.5 [facility] Comment on above: Performed By: #### M G, CMP, TSH, T7, BNP #### [facility] [address] [place] [address] Dr. Glenys Holly PLT 329 103/ul Normal 150-450 [facility] Comment on above: Performed By: #### M G, CMP, TSH, T7, BNP #### [facility] [address] [place] [address] Dr. Glenys Holly RBC 4.70 106/ul Normal 4.20-5.40 [facility] Comment on above: Performed By: #### M G, CMP, TSH, T7, BNP #### [facility] [address] [place] [address] Dr. Glenys Holly WBC 9.9 103/ul Normal 4.0-11.0 [facility] Comment on above: Performed By: #### M G, CMP, TSH, T7, BNP #### [facility] [address] [place] [address] Dr. Glenys Holly PROF 14(COMP METB)on 022 Albumin [Mass/Vol] 3.0 g/dL Critically low 3.4-5.0 Th e [facility] Comment on above: Performed By: #### M G, CMP, TSH, T7, BNP #### [facility] [address] [address] [address] Glenys Holly Albumin/Globulin [Mass ratio] 1.1 {ratio} Normal [facility] Comment on above: Performed By: #### M G, CMP, TSH, T7, BNP #### [facility] [address] [address] [address] Glenys Holly ALP [Catalytic activity/Vol] 78 U/L Normal 46-116 [facility] Comment on above: Performed By: #### M G, CMP, TSH, T7, BNP #### [facility] [address] [address] [address] Glenys Holly ALT [Catalytic activity/Vol] 10 U/L Critically low 14-59 [facility] Comment on above: Performed By: #### M G, CMP, TSH, T7, BNP #### [facility] [address] [address] [address] Glenys Holly Anion gap [Moles/Vol] 9.6 mmol/L Normal [facility] Comment on above: Performed By: #### M G, CMP, TSH, T7, BNP #### [facility] [address] [address] [address] Glenys Holly AST [Catalytic activity/Vol] 18 U/L Normal 15-37 [facility] Comment on above: Performed By: #### M G, CMP, TSH, T7, BNP #### [facility] [address] [address] [address] Glenys Holly Bilirubin [Mass/Vol] 0.3 mg/dL Normal 0.2-1.0 [facility] Comment on above: Performed By: #### M G, CMP, TSH, T7, BNP #### [facility] [address] [address] [address] Glenys Holly Calcium [Mass/Vol] 9.1 mg/dL Normal 8.5-10.1 [facility] Comment on above: Performed By: #### M G, CMP, TSH, T7, BNP #### [facility] [address] [place] [address] Dr. Glenys Holly Chloride [Moles/Vol] 102 mmol/L Normal 98-107 [facility] Comment on above: Performed By: #### M G, CMP, TSH, T7, BNP #### [facility] [address] [place] [address] Dr. Glenys Holly CO2 [Moles/Vol] 30.3 mmol/L Normal 21.0-32.0 The [facility] Comment on above: Performed By: #### M G, CMP, TSH, T7, BNP #### [facility] [address] [place] [address] Dr. Glenys Hloly Creatinine [Mass/Vol] 0.83 mg/dL Normal 0.55-1.02 [facility] Comment on above: Performed By: #### M G, CMP, TSH, T7, BNP #### [facility] [address] [place] [address] Dr. Glenys Holly EGFR-AF JAMAICAN >60 Normal >=60 The [facility] Comment on above: Performed By: #### M G, CMP, TSH, T7, BNP #### [facility] [address] [place] [address] Dr. Glenys Holly EGFR-NON AF J[place]ICAN >60 Normal >=60 [facility] Comment on above: Performed By: #### M G, CMP, TSH, T7, BNP #### [facility] [address] [place] [address] Dr. Glenys Holly Globulin (S) [Mass/Vol] 2.8 g/dL Normal [facility] Comment on above: Performed By: #### M G, CMP, TSH, T7, BNP #### [facility] [address] [place] [address] Dr. Glenys Holly Glucose [Mass/Vol] 105 mg/dL Normal 74-106 [facility] Comment on above: Performed By: #### M G, CMP, TSH, T7, BNP #### [facility] [address] [address] [address] Glenys Holly Potassium [Moles/Vol] 2.9 mmol/L Critically low 3.5-5.1 [facility] Comment on above: Performed By: #### M G, CMP, TSH, T7, BNP #### [facility] [address] [address] [address] Glenys Holly Protein [Mass/Vol] 5.8 g/dL Critically low 6.4-8.2 [facility] Comment on above: Performed By: #### M G, CMP, TSH, T7, BNP #### [facility] [address] [address] [address] Glenys Holly Sodium [Moles/Vol] 138 mmol/L Normal 136-145 [facility] Comment on above: Performed By: #### M G, CMP, TSH, T7, BNP #### [facility] [address] [address] [address] Glenys Holly Urea nitrogen [Mass/Vol] 21.0 mg/dL Critically high 7.0-18.0 [facility] Comment on above: Performed By: #### M G, CMP, TSH, T7, BNP #### [facility] [address] [address] [address] Glenys Holly Urea nitrogen/Creatinine [Mass ratio] 25.3 mg/mg Normal [facility] Comment on above: Performed By: #### M G, CMP, TSH, T7, BNP #### [facility] [address] [address] [address] Glenys Holly TROPONIN, HIGH SENSITIVITYon 05-09-2022 HSTROP 49.8 pg/mL Normal 4.0-51.3 [facility] Comment on above: Result Comment: CUT- OFF POINTS HAVE BEEN ESTABLISHED BASED ON THE FOURTH UNIVERSAL DEFINITIONS OF MYOCARDIAL INFARCTION. THE UPPER REFERENCE LIMIT (URL) OF TROPONIN, DEFINED THE 99TH PERCENTILE OF cTnI DISTRIBUTION IN A REFERENCE POPULATION, HAS BEEN CONFIRMED THE DECISION THRESHOLD FOR MD DIAGNOSIS. Performed By: #### M G, CMP, TSH, T7, BNP #### [facility] [address] [address] [address] Glenys Holly BNPon 05-08-2022 Natriuretic peptide B (Bld) [Mass/Vol] 2723.0 pg/mL Critically high <=1,800.0 [facility] Comment on above: Performed By: #### C MP, HSTROPN, BNP ####[facility] [id number] [address]Dr. Glenys Holly CBC AUTO DIFFon 05-08-2022 BASO # 0.0 103/ul Normal 0.0-0.1 [facility] Comment on above: Performed By: #### M G, CMP, TSH, T7, BNP #### [facility] [address] [address] [address] Glenys Holly Basophils/100 WBC (Bld) 0.2 % Normal 0.2-2.0 [facility] Comment on above: Performed By: #### M G, CMP, TSH, T7, BNP #### [facility] [address] [place] [address] Dr. Glenys Holly EO # 0.0 103/ul Normal 0.0-0.7 [facility] Comment on above: Performed By: #### M G, CMP, TSH, T7, BNP #### [facility] [address] [address] [address] Glenys Holly Eosinophils/100 WBC (Bld) 0.1 % Critically low 0.9-7.0 [facility] Comment on above: Performed By: #### M G, CMP, TSH, T7, BNP #### [facility] [address] [place] [address] Dr. Glenys Holly Erythrocyte distribution width (RBC) [Ratio] 15.9 % Critically high 11.0-15.0 [facility] Comment on above: Performed By: #### M G, CMP, TSH, T7, BNP #### [facility] [address] [place] [address] Dr. Glenys Holly Hematocrit (Bld) [Volume fraction] 38.0 % Normal 36.0-48.0 [facility] Comment on above: Performed By: #### M G, CMP, TSH, T7, BNP #### [facility] [address] [place] [address] Dr. Glenys Holly Hemoglobin (Bld) [Mass/Vol] 12.5 g/dL Normal 12.0-16.0 [facility] Comment on above: Performed By: #### M G, CMP, TSH, T7, BNP #### [facility] [address] [place] [address] Dr. Glenys Holly IG # 0.17 10e3/ul Critically high 0.00-0.03 [facility] Comment on above: Performed By: #### M G, CMP, TSH, T7, BNP #### [facility] [address] [place] [address] Dr. Glenys Holly IG % 1.1 % Critically high 0.0-0.5 [facility] Comment on above: Performed By: #### M G, CMP, TSH, T7, BNP #### [facility] [address] [place] [address] Dr. Glenys Holly LYMPH # 1.0 103/ul Critically low 1.2-3.8 [facility] Comment on above: Performed By: #### M G, CMP, TSH, T7, BNP #### [facility] [address] [place] [address] Dr. Glenys Holly Lymphocytes/100 WBC (Bld) 6.2 % Critically low 20.5-60.0 [facility] Comment on above: Performed By: #### M G, CMP, TSH, T7, BNP #### [facility] [address] [place] [address] Dr. Glenys Holly MANUAL DIFF REQ NO Normal [facility] Comment on above: Performed By: #### M G, CMP, TSH, T7, BNP #### [facility] [address] [place] [address] Dr. Glenys Holly MCH (RBC) [Entitic mass] 30.1 pg Normal 26.7-34.0 [facility] Comment on above: Performed By: #### M G, CMP, TSH, T7, BNP #### [facility] [address] [place] [address] Dr. Glenys Holly MCHC (RBC) [Mass/Vol] 32.9 g/dL Normal 29.9-35.2 [facility] Comment on above: Performed By: #### M G, CMP, TSH, T7, BNP #### [facility] [address] [place] [address] Dr. Glenys Holly MCV (RBC) [Entitic vol] 91.6 fL Normal 81.0-99.0 [facility] Comment on above: Performed By: #### M G, CMP, TSH, T7, BNP #### [facility] [address] [place] [address] Dr. Glenys Holly MONO # 0.8 103/ul Normal 0.3-0.8 [facility] Comment on above: Performed By: #### M G, CMP, TSH, T7, BNP #### [facility] [address] [place] [address] Dr. Glenys Holly Monocytes/100 WBC (Bld) 5.2 % Normal 1.7-12.0 [facility] Comment on above: Performed By: #### M G, CMP, TSH, T7, BNP #### [facility] [address] [place] [address] Dr. Glenys Holly NEUT # 14.0 103/ul Critically high 1.4-6.5 [facility] Comment on above: Performed By: #### M G, CMP, TSH, T7, BNP #### [facility] [address] [place] [address] Dr. Glenys Holly Neutrophils/100 WBC (Bld) 87.2 % Critically high 43.0-75.0 [facility] Comment on above: Performed By: #### M G, CMP, TSH, T7, BNP #### [facility] [address] [place] [address] Dr. Glenys Holly Platelet mean volume (Bld) [Entitic vol] 11.7 fL Normal 9.5-13.5 [facility] Comment on above: Performed By: #### M G, CMP, TSH, T7, BNP #### [facility] [address] [place] [address] Dr. Glenys Holly PLT 285 103/ul Normal 150-450 [facility] Comment on above: Performed By: #### M G, CMP, TSH, T7, BNP #### [facility] [address] [address] [address] Glenys Holly RBC 4.15 106/ul Critically low 4.20-5.40 [facility] Comment on above: Performed By: #### M G, CMP, TSH, T7, BNP #### [facility] [address] [address] [address] Glenys Holly WBC 16.0 103/ul Critically high 4.0-11.0 [facility] Comment on above: Performed By: #### M G, CMP, TSH, T7, BNP #### [facility] [address] [address] [address] Glenys Holly PROF 14(COMP METB)on 022 Albumin [Mass/Vol] 2.7 g/dL Critically low 3.4-5.0 [facility] Comment on above: Performed By: #### C MP, HSTROPN, BNP #### [facility] [address] [address] [address] Glenys Holly Albumin/Globulin [Mass ratio] 1.0 {ratio} Normal [facility] Comment on above: Performed By: #### C MP, HSTROPN, BNP #### [facility] [address] [address] [address] Glenys Holly ALP [Catalytic activity/Vol] 73 U/L Normal 46-116 [facility] Comment on above: Performed By: #### C MP, HSTROPN, BNP #### [facility] [address] [address] [address] Glenys Holly ALT [Catalytic activity/Vol] 11 U/L Critically low 14-59 [facility] Comment on above: Performed By: #### C MP, HSTROPN, BNP #### [facility] [address] [address] [address] Glenys Holly Anion gap [Moles/Vol] 10.5 mmol/L Normal [facility] Comment on above: Performed By: #### C MP, HSTROPN, BNP #### [facility] [address] [place] [address] Dr. Glenys Holly AST [Catalytic activity/Vol] 21 U/L Normal 15-37 [facility] Comment on above: Performed By: #### C MP, HSTROPN, BNP #### [facility] [address] [place] [address] Dr. Glenys Holly Bilirubin [Mass/Vol] 0.3 mg/dL Normal 0.2-1.0 [facility] Comment on above: Performed By: #### C MP, HSTROPN, BNP #### [facility] [address] [place] [address] Dr. Glenys Holly Calcium [Mass/Vol] 8.6 mg/dL Normal 8.5-10.1 [facility] Comment on above: Performed By: #### C MP, HSTROPN, BNP #### [facility] [address] [place] [address] Dr. Glenys Holly Chloride [Moles/Vol] 106 mmol/L Normal 98-107 [facility] Comment on above: Performed By: #### C MP, HSTROPN, BNP #### [facility] [address] [place] [address] Dr. Glenys Holly CO2 [Moles/Vol] 29.0 mmol/L Normal 21.0-32.0 [facility] Comment on above: Performed By: #### C MP, HSTROPN, BNP #### [facility] [address] [place] [address] Dr. Glenys Holly Creatinine [Mass/Vol] 0.88 mg/dL Normal 0.55-1.02 [facility] Comment on above: Performed By: #### C MP, HSTROPN, BNP #### [facility] [address] [place] [address] Dr. Glenys Holly EGFR-AF JAMAICAN >60 Normal >=60 [facility] Comment on above: Performed By: #### C MP, HSTROPN, BNP #### [facility] [address] [address] [address] Glenys Holly EGFR-NON AF J[place]ICAN >60 Normal >=60 [facility] Comment on above: Performed By: #### C MP, HSTROPN, BNP #### [facility] [address] [address] [address] Glenys Holly Globulin (S) [Mass/Vol] 2.6 g/dL Normal [facility] Comment on above: Performed By: #### C MP, HSTROPN, BNP #### [facility] [address] [address] [address] Glenys Holly Glucose [Mass/Vol] 116 mg/dL Critically high 74-106 [facility] Comment on above: Performed By: #### C MP, HSTROPN, BNP #### [facility] [address] [place] [address] Dr. Glenys Holly Potassium [Moles/Vol] 3.5 mmol/L Normal 3.5-5.1 [facility] Comment on above: Performed By: #### C MP, HSTROPN, BNP #### [facility] [address] [address] [address] Glenys Holly Protein [Mass/Vol] 5.3 g/dL Critically low 6.4-8.2 [facility] Comment on above: Performed By: #### C MP, HSTROPN, BNP #### [facility] [address] [address] [address] Glenys Holly Sodium [Moles/Vol] 142 mmol/L Normal 136-145 [facility] Comment on above: Performed By: #### C MP, HSTROPN, BNP #### [facility] [address] [place] [address] Dr. Glenys Holly Urea nitrogen [Mass/Vol] 23.0 mg/dL Critically high 7.0-18.0 [facility] Comment on above: Performed By: #### C MP, HSTROPN, BNP #### [facility] [address] [address] [address] Glenys Holly Urea nitrogen/Creatinine [Mass ratio] 26.1 mg/mg Normal [facility] Comment on above: Performed By: #### C MP, HSTROPN, BNP #### [facility] [address] [place] [address] Dr. Glenys Holly TROPONIN, HIGH SENSITIVITYon 05-08-2022 HSTROP 60.8 pg/mL Critically high 4.0-51.3 The [facility] Comment on above: Result Comment: CUT- OFF POINTS HAVE BEEN ESTABLISHED BASED ON THE FOURTH UNIVERSAL DEFINITIONS OF MYOCARDIAL INFARCTION. THE UPPER REFERENCE LIMIT (URL) OF TROPONIN, DEFINED THE 99TH PERCENTILE OF cTnI DISTRIBUTION IN A REFERENCE POPULATION, HAS BEEN CONFIRMED THE DECISION THRESHOLD FOR MD DIAGNOSIS. Performed By: #### C MP, HSTROPN, BNP ####[facility] [address] [address]Dr. Glenys Holly BNPon 05-07-2022 Natriuretic peptide B (Bld) [Mass/Vol] 1476.0 pg/mL Normal <=1,800.0 [facility] Comment on above: Performed By: #### C MP, HSTROPN, BNP ####[facility] [address] [address]Dr. Glenys Holly CBC AUTO DIFFon 05-07-2022 BASO # 0.0 103/ul Normal 0.0-0.1 [facility] Comment on above: Performed By: #### M G, CMP, TSH, T7, BNP #### [facility] [address] [place] [address] Dr. Glenys Holly Basophils/100 WBC (Bld) 0.1 % Critically low 0.2-2.0 [facility] Comment on above: Performed By: #### M G, CMP, TSH, T7, BNP #### [facility] [address] [place] [address] Dr. Glenys Holly EO # 0.0 103/ul Normal 0.0-0.7 [facility] Comment on above: Performed By: #### M G, CMP, TSH, T7, BNP #### [facility] [address] [place] [address] Dr. Glenys Holly Eosinophils/100 WBC (Bld) 0.0 % Critically low 0.9-7.0 [facility] Comment on above: Performed By: #### M G, CMP, TSH, T7, BNP #### [facility] [address] [place] [address] Dr. Glenys Holly Erythrocyte distribution width (RBC) [Ratio] 16.3 % Critically high 11.0-15.0 [facility] Comment on above: Performed By: #### M G, CMP, TSH, T7, BNP #### [facility] [address] [place] [address] Dr. Glenys Holly Hematocrit (Bld) [Volume fraction] 34.1 % Critically low 36.0-48.0 [facility] Comment on above: Performed By: #### M G, CMP, TSH, T7, BNP #### [facility] [address] [place] [address] Dr. Glenys Holly Hemoglobin (Bld) [Mass/Vol] 11.2 g/dL Critically low 12.0-16.0 [facility] Comment on above: Performed By: #### M G, CMP, TSH, T7, BNP #### [facility] [address] [place] [address] Dr. Glenys Holly IG # 0.22 10e3/ul Critically high 0.00-0.03 [facility] Comment on above: Performed By: #### M G, CMP, TSH, T7, BNP #### [facility] [address] [place] [address] Dr. Glenys Holly IG % 1.0 % Critically high 0.0-0.5 [facility] Comment on above: Performed By: #### M G, CMP, TSH, T7, BNP #### [facility] [address] [place] [address] Dr. Glenys Holly LYMPH # 1.3 103/ul Normal 1.2-3.8 [facility] Comment on above: Performed By: #### M G, CMP, TSH, T7, BNP #### [facility] [address] [place] [address] Dr. Glenys Holly Lymphocytes/100 WBC (Bld) 6.0 % Critically low 20.5-60.0 [facility] Comment on above: Performed By: #### M G, CMP, TSH, T7, BNP #### [facility] [address] [place] [address] Dr. Glenys Holly MANUAL DIFF REQ NO Normal [facility] Comment on above: Performed By: #### M G, CMP, TSH, T7, BNP #### [facility] [address] [place] [address] Dr. Glenys Holly MCH (RBC) [Entitic mass] 30.7 pg Normal 26.7-34.0 [facility] Comment on above: Performed By: #### M G, CMP, TSH, T7, BNP #### [facility] [address] [place] [address] Dr. Glenys Holly MCHC (RBC) [Mass/Vol] 32.8 g/dL Normal 29.9-35.2 [facility] Comment on above: Performed By: #### M G, CMP, TSH, T7, BNP #### [facility] [address] [place] [address] Dr. Glenys Holly MCV (RBC) [Entitic vol] 93.4 fL Normal 81.0-99.0 [facility] Comment on above: Performed By: #### M G, CMP, TSH, T7, BNP #### [facility] [address] [place] [address] Dr. Glenys Holly MONO # 1.1 103/ul Critically high 0.3-0.8 [facility] Comment on above: Performed By: #### M G, CMP, TSH, T7, BNP #### [facility] [address] [place] [address] Dr. Glenys Holly Monocytes/100 WBC (Bld) 4.8 % Normal 1.7-12.0 [facility] Comment on above: Performed By: #### M G, CMP, TSH, T7, BNP #### [facility] [address] [place] [address] Dr. Glenys Holly NEUT # 19.4 103/ul Critically high 1.4-6.5 [facility] Comment on above: Performed By: #### M G, CMP, TSH, T7, BNP #### [facility] [address] [address] [address] Glenys Holly Neutrophils/100 WBC (Bld) 88.1 % Critically high 43.0-75.0 [facility] Comment on above: Performed By: #### M G, CMP, TSH, T7, BNP #### [facility] [address] [address] [address] Glenys Holly Platelet mean volume (Bld) [Entitic vol] 11.6 fL Normal 9.5-13.5 [facility] Comment on above: Performed By: #### M G, CMP, TSH, T7, BNP #### [facility] [address] [address] [address] Glenys Holly PLT 309 103/ul Normal 150-450 [facility] Comment on above: Performed By: #### M G, CMP, TSH, T7, BNP #### [facility] [address] [address] [address] Glenys Holly RBC 3.65 106/ul Critically low 4.20-5.40 [facility] Comment on above: Performed By: #### M G, CMP, TSH, T7, BNP #### [facility] [address] [address] [address] Glenys Holly WBC 22.0 103/ul Critically high 4.0-11.0 [facility] Comment on above: Performed By: #### M G, CMP, TSH, T7, BNP #### [facility] [address] [address] [address] Glenys Holly PROF 14(COMP METB)on 022 Albumin [Mass/Vol] 2.5 g/dL Critically low 3.4-5.0 [facility] Comment on above: Performed By: #### C MP, HSTROPN, BNP ####[facility] [address] [address]Dr. Glenys Holly Albumin/Globulin [Mass ratio] 1.0 {ratio} Normal [facility] Comment on above: Performed By: #### C MP, HSTROPN, BNP ####[facility] [address] [address]Dr. Glenys Holly ALP [Catalytic activity/Vol] 69 U/L Normal 46-116 [facility] Comment on above: Performed By: #### C MP, HSTROPN, BNP ####[facility] [address] [address]Dr. Glenys Holly ALT [Catalytic activity/Vol] 12 U/L Critically low 14-59 [facility] Comment on above: Performed By: #### C MP, HSTROPN, BNP ####[facility] [address] [place], [place] [address]Dr. Glenys Holly Anion gap [Moles/Vol] 10.9 mmol/L Normal [facility] Comment on above: Performed By: #### C MP, HSTROPN, BNP ####[facility] [address] [place], [place] [address]Dr. Glenys Holly AST [Catalytic activity/Vol] 25 U/L Normal 15-37 [facility] Comment on above: Performed By: #### C MP, HSTROPN, BNP ####[facility] [address] [place], [place] [address]Dr. Glenys Holly Bilirubin [Mass/Vol] 0.1 mg/dL Critically low 0.2-1.0 [facility] Comment on above: Performed By: #### C MP, HSTROPN, BNP ####[facility] [address] [place], [place] [address]Dr. Glenys Holly Calcium [Mass/Vol] 9.1 mg/dL Normal 8.5-10.1 [facility] Comment on above: Performed By: #### C MP, HSTROPN, BNP ####[facility] [address] [address]Dr. Glenys Holly Chloride [Moles/Vol] 110 mmol/L Critically high 98-107 [facility] Comment on above: Performed By: #### C MP, HSTROPN, BNP ####[facility] [address] [address]Dr. Glenys Holly CO2 [Moles/Vol] 24.8 mmol/L Normal 21.0-32.0 [facility] Comment on above: Performed By: #### C MP, HSTROPN, BNP ####[facility] [address] [address]Dr. Glenys Holly Creatinine [Mass/Vol] 0.87 mg/dL Normal 0.55-1.02 [facility] Comment on above: Performed By: #### C MP, HSTROPN, BNP ####[facility] [address] [place], [place] [address]Dr. Glenys Holly EGFR-AF J[place]ICAN >60 Normal >=60 [facility] Comment on above: Performed By: #### C MP, HSTROPN, BNP ####[facility] [address] [place], [place] [address]Dr. Glenys Holly EGFR-NON AF JAMAICAN >60 Normal >=60 [facility] Comment on above: Performed By: #### C MP, HSTROPN, BNP ####[facility] [address] [place], [place] [address]Dr. Glenys Holly Globulin (S) [Mass/Vol] 2.5 g/dL Normal [facility] Comment on above: Performed By: #### C MP, HSTROPN, BNP ####[facility] [address] [address]Dr. Glenys Holly Glucose [Mass/Vol] 128 mg/dL Critically high 74-[address] [facility] Comment on above: Performed By: #### C MP, HSTROPN, BNP ####[facility] [address] [place], [place] [address]Dr. Glenys Holly Potassium [Moles/Vol] 4.7 mmol/L Normal 3.5-5.1 [facility] Comment on above: Performed By: #### C MP, HSTROPN, BNP ####[facility] [address] [place], [place] [address]Dr. Glenys Holly Protein [Mass/Vol] 5.0 g/dL Critically low 6.4-8.2 [facility] Comment on above: Performed By: #### C MP, HSTROPN, BNP ####[facility] [address] [address]Dr. Glenys Holly Sodium [Moles/Vol] 141 mmol/L Normal 136-145 [facility] Comment on above: Performed By: #### C MP, HSTROPN, BNP ####[facility] [address] [address]Dr. Glenys Holly Urea nitrogen [Mass/Vol] 28.0 mg/dL Critically high 7.0-18.0 [facility] Comment on above: Performed By: #### C MP, HSTROPN, BNP ####[facility] [address] [address]Dr. Glenys Holly Urea nitrogen/Creatinine [Mass ratio] 32.2 mg/mg Normal [facility] Comment on above: Performed By: #### C MP, HSTROPN, BNP ####[facility] [address] [address]Dr. Glenys Holly TROPONIN, HIGH SENSITIVITYon 05-07-2022 HSTROP 78.5 pg/mL Critically high 4.0-51.3 [facility] Comment on above: Result Comment: CUT- OFF POINTS HAVE BEEN ESTABLISHED BASED ON THE FOURTH UNIVERSAL DEFINITIONS OF MYOCARDIAL INFARCTION. THE UPPER REFERENCE LIMIT (URL) OF TROPONIN, DEFINED THE 99TH PERCENTILE OF cTnI DISTRIBUTION IN A REFERENCE POPULATION, HAS BEEN CONFIRMED THE DECISION THRESHOLD FOR MD DIAGNOSIS. Performed By: #### C MP, HSTROPN, BNP ####[facility] [address] [address]Dr. Glenys Holly XR CHEST 2 Von 05-07-2022 [...] SUPA DEAN Date: 2022-05-07 10:34 Normal [facility] BNPon 05-06-2022 Natriuretic peptide B (Bld) [Mass/Vol] 1143.0 pg/mL Normal <=1,800.0 [facility] Comment on above: Performed By: #### C MP, BNP ####[facility] [address] [address]Dr. Glenys Holly CBC AUTO DIFFon 05-06-2022 BASO # 0.0 103/ul Normal 0.0-0.1 [facility] Comment on above: Performed By: #### M G, CMP, TSH, T7, BNP #### [facility] [address] [address] [address] Glenys Holly Basophils/100 WBC (Bld) 0.1 % Critically low 0.2-2.0 [facility] Comment on above: Performed By: #### M G, CMP, TSH, T7, BNP #### [facility] [address] [address] [address] Glenys Holly EO # 0.0 103/ul Normal 0.0-0.7 [facility] Comment on above: Performed By: #### M G, CMP, TSH, T7, BNP #### [facility] [address] [address] [address] Glenys Holly Eosinophils/100 WBC (Bld) 0.0 % Critically low 0.9-7.0 [facility] Comment on above: Performed By: #### M G, CMP, TSH, T7, BNP #### [facility] [address] [address] [address] Glenys Holly Erythrocyte distribution width (RBC) [Ratio] 15.8 % Critically high 11.0-15.0 [facility] Comment on above: Performed By: #### M G, CMP, TSH, T7, BNP #### [facility] [address] [place] [address] Dr. Glenys Holly Hematocrit (Bld) [Volume fraction] 36.7 % Normal 36.0-48.0 [facility] Comment on above: Performed By: #### M G, CMP, TSH, T7, BNP #### [facility] [address] [place] [address] Dr. Glenys Holly Hemoglobin (Bld) [Mass/Vol] 12.3 g/dL Normal 12.0-16.0 [facility] Comment on above: Performed By: #### M G, CMP, TSH, T7, BNP #### [facility] [address] [place] [address] Dr. Glenys Holly IG # 0.10 10e3/ul Critically high 0.00-0.03 [facility] Comment on above: Performed By: #### M G, CMP, TSH, T7, BNP #### [facility] [address] [place] [address] Dr. lGenys Holly IG % 0.5 % Normal 0.0-0.5 [facility] Comment on above: Performed By: #### M G, CMP, TSH, T7, BNP #### [facility] [address] [place] [address] Dr. Glenys Holly LYMPH # 1.4 103/ul Normal 1.2-3.8 [facility] Comment on above: Performed By: #### M G, CMP, TSH, T7, BNP #### [facility] [address] [place] [address] Dr. Glenys Holly Lymphocytes/100 WBC (Bld) 7.2 % Critically low 20.5-60.0 [facility] Comment on above: Performed By: #### M G, CMP, TSH, T7, BNP #### [facility] [address] [place] [address] Dr. Glenys Holly MANUAL DIFF REQ NO Normal [facility] Comment on above: Performed By: #### M G, CMP, TSH, T7, BNP #### [facility] [address] [place] [address] Dr. Glenys Holly MCH (RBC) [Entitic mass] 30.9 pg Normal 26.7-34.0 [facility] Comment on above: Performed By: #### M G, CMP, TSH, T7, BNP #### [facility] [address] [place] [address] Dr. Glenys Holly MCHC (RBC) [Mass/Vol] 33.5 g/dL Normal 29.9-35.2 [facility] Comment on above: Performed By: #### M G, CMP, TSH, T7, BNP #### [facility] [address] [place] [address] Dr. Glenys Holly MCV (RBC) [Entitic vol] 92.2 fL Normal 81.0-99.0 [facility] Comment on above: Performed By: #### M G, CMP, TSH, T7, BNP #### [facility] [address] [place] [address] Dr. Glenys Holly MONO # 0.9 103/ul Critically high 0.3-0.8 The [facility] Comment on above: Performed By: #### M G, CMP, TSH, T7, BNP #### [facility] [address] [place] [address] Dr. Glenys Holly Monocytes/100 WBC (Bld) 4.6 % Normal 1.7-12.0 [facility] Comment on above: Performed By: #### M G, CMP, TSH, T7, BNP #### [facility] [address] [place] [address] Dr. Glenys Holly NEUT # 17.4 103/ul Critically high 1.4-6.5 The [facility] Comment on above: Performed By: #### M G, CMP, TSH, T7, BNP #### [facility] [address] [place] [address] Dr. Glenys Holly Neutrophils/100 WBC (Bld) 87.6 % Critically high 43.0-75.0 The [facility] Comment on above: Performed By: #### M G, CMP, TSH, T7, BNP #### [facility] [address] [place] [address] Dr. Glenys Holly Platelet mean volume (Bld) [Entitic vol] 11.2 fL Normal 9.5-13.5 [facility] Comment on above: Performed By: #### M G, CMP, TSH, T7, BNP #### [facility] [address] [address] [address] Glenys Holly PLT 310 103/ul Normal 150-450 [facility] Comment on above: Performed By: #### M G, CMP, TSH, T7, BNP #### [facility] [address] [place] [address] Dr. Glensy Holly RBC 3.98 106/ul Critically low 4.20-5.40 [facility] Comment on above: Performed By: #### M G, CMP, TSH, T7, BNP #### [facility] [address] [place] [address] Dr. Glenys Holly WBC 19.8 103/ul Critically high 4.0-11.0 [facility] Comment on above: Performed By: #### M G, CMP, TSH, T7, BNP #### [facility] [address] [place] [address] Dr. Glenys Holly LACTATE/LACTIC ACIDon 2021 Lactate [Moles/Vol] 1.1 mmol/L Normal 0.4-1.9 [facility] Comment on above: Performed By: #### M G, CMP, TSH, T7, BNP #### [facility] [address] [place] [address] Dr. Glenys Holly POINT OF CARE GLUCOSEon 04-12 Glucose [Mass/Vol] 164 mg/dL Critically high 74-106 [facility] Comment on above: Performed By: #### M G, CMP, TSH, T7, BNP #### [facility] [address] [place] [address] Dr. Glenys Holly PROF 14(COMP METB)on 022 Albumin [Mass/Vol] 2.6 g/dL Critically low 3.4-5.0 Th [facility] Comment on above: Performed By: #### C MP, BNP ####[facility] [address] [address]Dr. Glenys Holly Albumin/Globulin [Mass ratio] 1.0 {ratio} Normal [facility] Comment on above: Performed By: #### C MP, BNP ####[facility] [address] [address]Dr. Glenys Holly ALP [Catalytic activity/Vol] 88 U/L Normal 46-116 [facility] Comment on above: Performed By: #### C MP, BNP ####[facility] [address] [place], [place] [address]Dr. Glenys Holly ALT [Catalytic activity/Vol] 1 U/L Critically low 14-59 [facility] Comment on above: Performed By: #### C MP, BNP ####[facility] [address] [place], [place] [address]Dr. Glenys Holly Anion gap [Moles/Vol] 9.9 mmol/L Normal [facility] Comment on above: Performed By: #### C MP, BNP ####[facility] [address] [place], [place] [address]Dr. Glenys Holly AST [Catalytic activity/Vol] 19 U/L Normal 15-37 [facility] Comment on above: Performed By: #### C MP, BNP ####[facility] [address] [place], [place] [address]Dr. Glenys Holly Bilirubin [Mass/Vol] 0.2 mg/dL Normal 0.2-1.0 [facility] Comment on above: Performed By: #### C MP, BNP ####[facility] [address] [place], [place] [address]Dr. Glenys Holly Calcium [Mass/Vol] 8.7 mg/dL Normal 8.5-10.1 [facility] Comment on above: Performed By: #### C MP, BNP ####[facility] [address] [place], [place] [address]Dr. Glenys Holly Chloride [Moles/Vol] 108 mmol/L Critically high 98-107 [facility] Comment on above: Performed By: #### C MP, BNP ####[facility] [address] [address]Dr. Karinaparmjit Holly CO2 [Moles/Vol] 25.2 mmol/L Normal 21.0-32.0 The [facility] Comment on above: Performed By: #### C MP, BNP ####[facility] [address] [place], [place] [address]Dr. Glenys Holly Creatinine [Mass/Vol] 0.80 mg/dL Normal 0.55-1.02 [facility] Comment on above: Performed By: #### C MP, BNP ####[facility] [address] [place], [place] [address]Dr. Glenys Holly EGFR-AF JAMAICAN >60 Normal >=60 The [facility] Comment on above: Performed By: #### C MP, BNP ####[facility] [address] [place], [place] [address]Dr. Karinaparmjit Avni EGFR-NON AF JAMAICAN >60 Normal >=60 [facility] Comment on above: Performed By: #### C MP, BNP ####[facility] [address] [place], [place] [address]Dr. Glenys Holly Globulin (S) [Mass/Vol] 2.7 g/dL Normal [facility] Comment on above: Performed By: #### C MP, BNP ####[facility] [address] [place], [place] [address]Dr. Glenys Holly Glucose [Mass/Vol] 123 mg/dL Critically high 74-106 [facility] Comment on above: Performed By: #### C MP, BNP ####[facility] [address] [place], [place] [address]Dr. Glenys Holly Potassium [Moles/Vol] 4.1 mmol/L Normal 3.5-5.1 [facility] Comment on above: Performed By: #### C MP, BNP ####[facility] [address] [place], [place] [address]Dr. Glenys Holly Protein [Mass/Vol] 5.3 g/dL Critically low 6.4-8.2 Th e [facility] Comment on above: Performed By: #### C MP, BNP ####[facility] [address] [place], [place] [address]Fh. Glenys Holly Sodium [Moles/Vol] 139 mmol/L Normal 136-145 [facility] Comment on above: Performed By: #### C MP, BNP ####[facility] [address] [place] [id number]. Glenys Holly Urea nitrogen [Mass/Vol] 22.0 mg/dL Critically high 7.0-18.0 [facility] Comment on above: Performed By: #### C MP, BNP ####[facility] [address] [address]Dr. Glenys Holly Urea nitrogen/Creatinine [Mass ratio] 27.5 mg/mg Normal [facility] Comment on above: Performed By: #### C MP, BNP ####[facility] [address] [place] [id number]. Glenys Holly T3, TOTAL (TRIIODOTHYRONINE) on 05-06-2022 T3, TOTAL 69 ng/dL Critically low 71-180 [facility] Comment on above: Performed By: #### M G, CMP, TSH, T7, BNP #### [facility] [address] [place], [place] [address] Dr. Glenys Holly TROPONIN, HIGH SENSITIVITYon 05-06-2022 HSTROP 141.0 pg/mL Critically high 4.0-51.3 [facility] Comment on above: Result Comment: CUT- OFF POINTS HAVE BEEN ESTABLISHED BASED ON THE FOURTH UNIVERSAL DEFINITIONS OF MYOCARDIAL INFARCTION. THE UPPER REFERENCE LIMIT (URL) OF TROPONIN, DEFINED THE 99TH PERCENTILE OF cTnI DISTRIBUTION IN A REFERENCE POPULATION, HAS BEEN CONFIRMED THE DECISION THRESHOLD FOR MD DIAGNOSIS. Performed By: #### M G, CMP, TSH, T7, BNP #### [facility] [address] [place], [place] [address] Dr. Glenys Holly AMYLASEon 05-05-2022 Amylase [Catalytic activity/Vol] 26 U/L Normal 25-115 [facility] Comment on above: Performed By: #### M G, CMP, TSH, T7, BNP #### [facility] [address] [address] [address] Glenys Holly BNPon 05-05-2022 Natriuretic peptide B (Bld) [Mass/Vol] 811.0 pg/mL Normal <=1,800.0 [facility] Comment on above: Performed By: #### M G, CMP, TSH, T7, BNP #### [facility] [address] [address] [address] Glenys Holly CARDIAC ADEEL 3-6on 2 CK [Catalytic activity/Vol] 33 U/L Normal 26-192 [facility] Comment on above: Performed By: #### C MREP ####[facility] [address] [address]Dr. Glenys Holly CK.MB [Mass/Vol] 1.13 ng/mL Normal <=3.60 The [facility] Comment on above: Performed By: #### C MREP ####[facility] [address] [address]Dr. Glenys Holly HSTROP 164.3 pg/mL Critically high 4.0-51.3 The [facility] Comment on above: Result Comment: CUT- OFF POINTS HAVE BEEN ESTABLISHED BASED ON THE FOURTH UNIVERSAL DEFINITIONS OF MYOCARDIAL INFARCTION. THE UPPER REFERENCE LIMIT (URL) OF TROPONIN, DEFINED THE 99TH PERCENTILE OF cTnI DISTRIBUTION IN A REFERENCE POPULATION, HAS BEEN CONFIRMED THE DECISION THRESHOLD FOR MD DIAGNOSIS. Performed By: #### C MREP ####[facility] [address] [address]Dr. Glenys Holly CK [Catalytic activity/Vol] 38 U/L Normal 26-192 [facility] Comment on above: Performed By: #### M G, CMP, TSH, T7, BNP #### [facility] [address] [address] [address] Glenys Holly CK.MB [Mass/Vol] 0.91 ng/mL Normal <=3.60 The [facility] Comment on above: Performed By: #### M G, CMP, TSH, T7, BNP #### [facility] [address] [address] [address] Glenys Holly HSTROP 178.2 pg/mL Critically high 4.0-51.3 [facility] Comment on above: Result Comment: CUT- OFF POINTS HAVE BEEN ESTABLISHED BASED ON THE FOURTH UNIVERSAL DEFINITIONS OF MYOCARDIAL INFARCTION. THE UPPER REFERENCE LIMIT (URL) OF TROPONIN, DEFINED THE 99TH PERCENTILE OF cTnI DISTRIBUTION IN A REFERENCE POPULATION, HAS BEEN CONFIRMED THE DECISION THRESHOLD FOR MD DIAGNOSIS. Performed By: #### M G, CMP, TSH, T7, BNP #### [facility] [address] [place] [address] Dr. Glenys Holly CARDIAC ADEEL ADMITon 022 CK [Catalytic activity/Vol] 29 U/L Normal 26-192 [facility] Comment on above: Performed By: #### M G, CMP, TSH, T7, BNP #### [facility] [address] [place] [address] Dr. Glenys Holly CK.MB [Mass/Vol] 0.73 ng/mL Normal <=3.60 [facility] Comment on above: Performed By: #### M G, CMP, TSH, T7, BNP #### [facility] [address] [place] [address] Dr. Glenys Holly HSTROP 191.6 pg/mL Critically high 4.0-51.3 [facility] Comment on above: Result Comment: CUT- OFF POINTS HAVE BEEN ESTABLISHED BASED ON THE FOURTH UNIVERSAL DEFINITIONS OF MYOCARDIAL INFARCTION. THE UPPER REFERENCE LIMIT (URL) OF TROPONIN, DEFINED THE 99TH PERCENTILE OF cTnI DISTRIBUTION IN A REFERENCE POPULATION, HAS BEEN CONFIRMED THE DECISION THRESHOLD FOR MD DIAGNOSIS. Performed By: #### M G, CMP, TSH, T7, BNP #### [facility] [address] [place] [address] Dr. Glenys Holly NEO 79 ng/mL Normal 9-82 [facility] Comment on above: Performed By: #### M G, CMP, TSH, T7, BNP #### [facility] [address] [place] [address] Dr. Glenys Holly CBC W MANUAL DIFFon 05-05-20 ANISOCYTOSIS 1+ Normal [facility] Comment on above: Performed By: #### M G, CMP, TSH, T7, BNP #### [facility] [address] [place] [address] Dr. Glenys Holly ATYPICAL LYMPH # Normal [facility] Comment on above: Performed By: #### M G, CMP, TSH, T7, BNP #### [facility] [address] [place] [address] Dr. Glenys Holly ATYPICAL LYMPH % Normal [facility] Comment on above: Performed By: #### M G, CMP, TSH, T7, BNP #### [facility] [address] [place] [address] Dr. Glenys Holly BAND # 0.2 103/ul Normal 0.0-0.3 [facility] Comment on above: Performed By: #### M G, CMP, TSH, T7, BNP #### [facility] [address] [place] [address] Dr. Glenys Holly BAND % 1 % Normal 0-5 [facility] Comment on above: Performed By: #### M G, CMP, TSH, T7, BNP #### [facility] [address] [place] [address] Dr. Glenys Holly BASOM # 0.00 103/ul Normal 0.00-0.10 [facility] Comment on above: Performed By: #### M G, CMP, TSH, T7, BNP #### [facility] [address] [place] [address] Dr. Glenys Holly BASOM % 0.0 % Critically low 0.2-2.0 [facility] Comment on above: Performed By: #### M G, CMP, TSH, T7, BNP #### [facility] [address] [place] [address] Dr. Glenys Holly BLAST # Normal [facility] Comment on above: Performed By: #### M G, CMP, TSH, T7, BNP #### [facility] [address] [place] [address] Dr. Glenys Holly BLAST % Normal [facility] Comment on above: Performed By: #### M G, CMP, TSH, T7, BNP #### [facility] [address] [place] [address] Dr. Glenys Holly CORRECTED WBC Normal 4.0-11.0 [facility] Comment on above: Performed By: #### M G, CMP, TSH, T7, BNP #### [facility] [address] [place] [address] Dr. Glenys Holly EOS # 0.00 103/ul Normal 0.00-0.70 [facility] Comment on above: Performed By: #### M G, CMP, TSH, T7, BNP #### [facility] [address] [place] [address] Dr. Glenys Holly EOS% 0.0 % Critically low 0.9-7.0 [facility] Comment on above: Performed By: #### M G, CMP, TSH, T7, BNP #### [facility] [address] [place] [address] Dr. Glenys Holly HCT 41.5 % Normal 36.0-48.0 [facility] Comment on above: Performed By: #### M G, CMP, TSH, T7, BNP #### [facility] [address] [place] [address] Dr. Glenys Holly HGB 14.2 g/dl Normal 12.0-16.0 [facility] Comment on above: Performed By: #### M G, CMP, TSH, T7, BNP #### [facility] [address] [place] [address] Dr. Glenys Holly LYMPHM # 0.96 103/ul Critically low 1.20-3.80 [facility] Comment on above: Performed By: #### M G, CMP, TSH, T7, BNP #### [facility] [address] [place] [address] Dr. Glenys Holly LYMPHM% 6.0 % Critically low 20.5-60.0 [facility] Comment on above: Performed By: #### M G, CMP, TSH, T7, BNP #### [facility] [address] [place] [address] Dr. Glenys Holly MCH 31.0 pg Normal 26.7-34.0 [facility] Comment on above: Performed By: #### M G, CMP, TSH, T7, BNP #### [facility] [address] [address] [address] Glenys Holly MCHC 34.2 g/dl Normal 29.9-35.2 [facility] Comment on above: Performed By: #### M G, CMP, TSH, T7, BNP #### [facility] [address] [address] [address] Glenys Holly MCV 90.6 fL Normal 81.0-99.0 [facility] Comment on above: Performed By: #### M G, CMP, TSH, T7, BNP #### [facility] [address] [place] [address] Dr. Glenys Holly METAMYELOCYTE # Normal [facility] Comment on above: Performed By: #### M G, CMP, TSH, T7, BNP #### [facility] [address] [address] [address] Glenys Holly METAMYELOCYTE % Normal [facility] Comment on above: Performed By: #### M G, CMP, TSH, T7, BNP #### [facility] [address] [address] [address] Glenys Holly MONOM# 2.56 103/ul Critically high 0.30-0.80 [facility] Comment on above: Performed By: #### M G, CMP, TSH, T7, BNP #### [facility] [address] [address] [address] Glenys Holly MONOM% 16.0 % Critically high 1.7-12.0 [facility] Comment on above: Performed By: #### M G, CMP, TSH, T7, BNP #### [facility] [address] [address] [address] Glenys Holly MPV 11.1 fL Normal 9.5-13.5 [facility] Comment on above: Performed By: #### M G, CMP, TSH, T7, BNP #### [facility] [address] [address] [address] Glenys Holly MYELOCYTE # Normal [facility] Comment on above: Performed By: #### M G, CMP, TSH, T7, BNP #### [facility] [address] [address] [address] Glenys Holly MYELOCYTE % Normal [facility] Comment on above: Performed By: #### M G, CMP, TSH, T7, BNP #### [facility] [address] [address] [address] Glenys Holly NRBC Normal [facility] Comment on above: Performed By: #### M G, CMP, TSH, T7, BNP #### [facility] [address] [address] [address] Glenys Holly PLT 352 103/ul Normal 150-450 [facility] Comment on above: Performed By: #### M G, CMP, TSH, T7, BNP #### [facility] [address] [place] [address] Dr. Glenys Holly RBC 4.58 106/ul Normal 4.20-5.40 [facility] Comment on above: Performed By: #### M G, CMP, TSH, T7, BNP #### [facility] [address] [place] [address] Dr. Glenys Holly RDW 15.2 % Critically high 11.0-15.0 [facility] Comment on above: Performed By: #### M G, CMP, TSH, T7, BNP #### [facility] [address] [address] [address] Glenys Holly SEG # 12.32 103/ul Critically high 1.40-6.50 [facility] Comment on above: Performed By: #### M G, CMP, TSH, T7, BNP #### [facility] [address] [place] [address] Dr. Glenys Holly SEG % 77.0 % Critically high 43.0-75.0 [facility] Comment on above: Performed By: #### M G, CMP, TSH, T7, BNP #### [facility] [address] [place] [address] Dr. Glenys Holly WBC 16.0 103/ul Critically high 4.0-11.0 [facility] Comment on above: Performed By: #### M G, CMP, TSH, T7, BNP #### [facility] [address] [id number] Glenys Holly CTA CHEST WO W CONon 022 CTA CHEST WO W CON EXAMINATION: [...] YULISSA TALBERT Date: 2022-05-05 09:32 Normal [facility] CULTURE BLOODon 05-05-2022 Microscopic examination of blood, culture Culture Observations: NO GROWTH AT 5 DAYS. Normal [facility] Comment on above: Performed By: #### B LDCX2 ####[facility] [address] [place], [place] [address]Ll. Glenys Holly Microscopic examination of blood, culture Culture Observations: NO GROWTH AT 5 DAYS. Normal [facility] Comment on above: Performed By: #### B LDCX1 ####[facility] [address] [place], [place] [address]Yu. Glenys Holly CULTURE URINEon 05-05-2022 CULTURE URINE Culture Observations : LIGHT GROWTH OF MIXED GENITAL NIDA. NO POTENTIAL PATHOGENS SEEN. Normal [facility] Comment on above: Performed By: #### U RCX ####[facility] [address] [place], [place] [address]Yf. Glenys Holly Covid-19 PCR (CVDTBH)on 04-12 SARS-CoV-2 (COVID-19) RNA KINZA+probe Ql (Unsp spec) Not detected Normal NOT DETECTED [facility] Comment on above: Result Comment: When diagnostic [...] for this test is supported by the [employer] of Health and Human Service's declaration that [...] longer be used). Performed By: #### C VDTBH #### [facility] [address] [place], [place] [address] Dr. Glenys Holly ECHOCARDIO M/2D COMPLETEon 1 07-05-2021 ECHOCARDIO M/2D COMPLETE Patient: JUDITH KHAN Exam Date: 05/05/2022 : 1945 Gender:F Ordering : DR RODRICK SAMS . Admission #: [id number] Family : Order #: [id number] CLICK HERE TO VIEW EXAM ECHOCARDIOGRAM REPORT [...] M.D. on 05/10/2022 at 13:12 Normal [facility] INFLUENZA A AND B AGon 05-05 INFLUANEGH SEE BELOW Normal [facility] Comment on above: Result Comment: Nega tive for Flu A protein angiten. Infection due to Flu A cannot be ruled out. Flu A angiten in the sample may be below the detection limit of the test. Performed By: #### M G, CMP, TSH, T7, BNP #### [facility] [address] [place] [address] Dr. Glenys [facility] Normal [facility] Comment on above: Result Comment: Nega tive for Flu B protein antigen. Infection due to Flu B cannot be ruled out. Flu B antigen in the sample may be below the detection limit of the test. Performed By: #### M G, CMP, TSH, T7, BNP #### [facility] [address] [place] [address] Dr. Glenys Holly INFLUENZA A AG Negative Normal NEGATIVE SEE COMMENT [facility] Comment on above: Performed By: #### M G, CMP, TSH, T7, BNP #### [facility] [address] [place] [address] Dr. Glenys Holly INFLUENZA B AG Negative Normal NEGATIVE SEE COMMENT [facility] Comment on above: Performed By: #### M G, CMP, TSH, T7, BNP #### [facility] [address] [place] [address] Dr. Glenys Holly INTERNAL CONTROLS Within Normal Limits Normal Wi thin Normal Limits [facility] Comment on above: Performed By: #### M G, CMP, TSH, T7, BNP #### [facility] [address] [place] [address] Dr. Glenys Holly LACTATE/LACTIC ACIDon 2021 Lactate [Moles/Vol] 5.2 mmol/L Critically high 0.4-1.9 [facility] Comment on above: Performed By: #### M G, CMP, TSH, T7, BNP #### [facility] [address] [place] [address] Dr. Glenys Holly Lactate [Moles/Vol] 4.8 mmol/L Critically high 0.4-1.9 [facility] Comment on above: Performed By: #### M G, CMP, TSH, T7, BNP #### [facility] [address] [place] [address] Dr. Glenys Holly LIPASEon 05-05-2022 Lipase [Catalytic activity/Vol] 64.0 U/L Critically low 73.0-393.0 [facility] Comment on above: Performed By: #### M G, CMP, TSH, T7, BNP #### [facility] [address] [place] [address] Dr. Glenys Holly PROF CHEM 8 (BAS METB)on Anion gap [Moles/Vol] 12.6 mmol/L Normal [facility] Comment on above: Performed By: #### M G, CMP, TSH, T7, BNP #### [facility] [address] [place] [address] Dr. Glenys Holly Calcium [Mass/Vol] 9.6 mg/dL Normal 8.5-10.1 [facility] Comment on above: Performed By: #### M G, CMP, TSH, T7, BNP #### [facility] [address] [place] [address] Dr. Glenys Holly Chloride [Moles/Vol] 102 mmol/L Normal 98-107 [facility] Comment on above: Performed By: #### M G, CMP, TSH, T7, BNP #### [facility] [address] [place] [address] Dr. Glenys Holly CO2 [Moles/Vol] 26.3 mmol/L Normal 21.0-32.0 [facility] Comment on above: Performed By: #### M G, CMP, TSH, T7, BNP #### [facility] [address] [place] [address] Dr. Glenys Holly Creatinine [Mass/Vol] 1.00 mg/dL Normal 0.55-1.02 [facility] Comment on above: Performed By: #### M G, CMP, TSH, T7, BNP #### [facility] [address] [address] [address] Glenys Holly EGFR-AF JAMAICAN >60 Normal >=60 [facility] Comment on above: Performed By: #### M G, CMP, TSH, T7, BNP #### [facility] [address] [address] [address] Glenys Holly EGFR-NON AF JAMAICAN 54 mL/min/1.73m2 Critically low >=60 [facility] Comment on above: Performed By: #### M G, CMP, TSH, T7, BNP #### [facility] [address] [address] [address] Glenys Holly Glucose [Mass/Vol] 128 mg/dL Critically high 74-106 [facility] Comment on above: Performed By: #### M G, CMP, TSH, T7, BNP #### [facility] [address] [place] [address] Dr. Glenys Holly Potassium [Moles/Vol] 2.9 mmol/L Critically low 3.5-5.1 [facility] Comment on above: Performed By: #### M G, CMP, TSH, T7, BNP #### [facility] [address] [address] [address] Glenys Holly Sodium [Moles/Vol] 138 mmol/L Normal 136-145 [facility] Comment on above: Performed By: #### M G, CMP, TSH, T7, BNP #### [facility] [address] [address] [address] Glenys Holly Urea nitrogen [Mass/Vol] 20.0 mg/dL Critically high 7.0-18.0 [facility] Comment on above: Performed By: #### M G, CMP, TSH, T7, BNP #### [facility] [address] [address] [address] Glenys Holly Urea nitrogen/Creatinine [Mass ratio] 20.0 mg/mg Normal [facility] Comment on above: Performed By: #### M G, CMP, TSH, T7, BNP #### [facility] [address] [address] [address] Glenys Holly T4on 05-05-2022 T4 [Mass/Vol] 7.40 ug/dL Normal 4.80-13.90 [facility] Comment on above: Performed By: #### M G, CMP, TSH, T7, BNP #### [facility] [address] [place] [address] Dr. Glenys Holly TSHon 05-05-2022 TSH 0.198 uIU/mL Critically low 0.358-3.740 [facility] Comment on above: Performed By: #### M G, CMP, TSH, T7, BNP #### [facility] [address] [place] [address] Dr. Glenys Holly UA RANDOM W/MICROSCOPICon BACTERIA NONE SEEN Normal NONE SEEN [facility] Comment on above: Performed By: #### M G, CMP, TSH, T7, BNP #### [facility] [address] [place] [address] Dr. Glenys Holly Bilirubin Ql (U) Negative Normal NEGATIVE [facility] Comment on above: Performed By: #### M G, CMP, TSH, T7, BNP #### [facility] [address] [place] [address] Dr. Glenys Holly CAST NONE SEEN Normal NONE SEEN [facility] Comment on above: Performed By: #### M G, CMP, TSH, T7, BNP #### [facility] [address] [place] [address] Dr. Glenys Holly Clarity (U) SL CLOUDY Abnormal CLEAR [facility] Comment on above: Performed By: #### M G, CMP, TSH, T7, BNP #### [facility] [address] [place] [address] Dr. Glenys Holly Color (U) LT. YELLOW Normal YELLOW [facility] Comment on above: Performed By: #### M G, CMP, TSH, T7, BNP #### [facility] [address] [place] [address] Dr. Glenys Holly Crystals LM Nom (Urine sed) NONE SEEN Normal NONE SEEN [facility] Comment on above: Performed By: #### M G, CMP, TSH, T7, BNP #### [facility] [address] [address] [address] Glenys Holly Epithelial cells LM Ql (Urine sed) FEW Abnormal NONE SEEN /RARE [facility] Comment on above: Performed By: #### M G, CMP, TSH, T7, BNP #### [facility] [address] [address] [address] Glenys Holly Glucose Ql (U) Negative Normal NEGATIVE The [facility] Comment on above: Performed By: #### M G, CMP, TSH, T7, BNP #### [facility] [address] [address] [address] Glenys Holly Hemoglobin Ql (U) MODERATE Abnormal NEGATIVE The [facility] Comment on above: Performed By: #### M G, CMP, TSH, T7, BNP #### [facility] [address] [place] [address] Dr. Glenys Holly Ketones Ql (U) Negative Normal NEGATIVE [facility] Comment on above: Performed By: #### M G, CMP, TSH, T7, BNP #### [facility] [address] [place] [address] Dr. Glenys Holly LEUKOCYTES Negative Normal NEGATIVE [facility] Comment on above: Performed By: #### M G, CMP, TSH, T7, BNP #### [facility] [address] [address] [address] Glenys Holly MUCOUS NONE SEEN Normal NONE SEEN [facility] Comment on above: Performed By: #### M G, CMP, TSH, T7, BNP #### [facility] [address] [address] [address] Glenys Holly Nitrite Ql (U) Negative Normal NEGATIVE [facility] Comment on above: Performed By: #### M G, CMP, TSH, T7, BNP #### [facility] [address] [address] [address] Glenys Holly pH (U) 6.0 [pH] Normal 5-9 [facility] Comment on above: Performed By: #### M G, CMP, TSH, T7, BNP #### [facility] [address] [place] [address] Dr. Glenys Holly RBC 2-5 Abnormal 0-2 [facility] Comment on above: Performed By: #### M G, CMP, TSH, T7, BNP #### [facility] [address] [address] [address] Glenys Holly SPEC GRAVITY 1.010 Normal 1.005-<=1.0 [facility] Comment on above: Performed By: #### M G, CMP, TSH, T7, BNP #### [facility] [address] [address] [address] Glenys Holly UA PROTEIN TRACE Normal NEGATIVE/ TRACE [facility] Comment on above: Performed By: #### M G, CMP, TSH, T7, BNP #### [facility] [address] [address] [address] Glenys Holly Urobilinogen Qn (U) 0.2 {Phoebe'U}/dL Normal 0.2 - 1. 0 [facility] Comment on above: Performed By: #### M G, CMP, TSH, T7, BNP #### [facility] [address] [address] [address] Glenys Holly WBC NONE SEEN Normal NONE SEEN [facility] Comment on above: Performed By: #### M G, CMP, TSH, T7, BNP #### [facility] [address] [address] [address] Glenys Holly XR CHEST 1 Von [...] SUPA LOZANO Date: 2022-05-05 07:41 Normal [facility] CULTURE URINEon 03-30-2022 CULTURE URINE Culture Observations : GREATER THAN 4 ORGANISMS PRESENT. PLEASE RESUBMIT CLEAN CATCH MID-STREAM URINE IF CLINICALLY INDICATED. Normal [facility] Comment on above: Performed By: #### U RCX ####[facility] [id number] [address] Glenys Holly CBC W MANUAL DIFFon 03-29-20 ATYPICAL LYMPH # Normal [facility] Comment on above: Performed By: #### M G, CMP, TSH, T7, BNP #### [facility] [address] [address] [address] Glenys Holly ATYPICAL LYMPH % Normal [facility] Comment on above: Performed By: #### M G, CMP, TSH, T7, BNP #### [facility] [address] [address] [address] Glenys Holly BAND # Normal 0.0-0.3 [facility] Comment on above: Performed By: #### M G, CMP, TSH, T7, BNP #### [facility] [address] [address] [address] Glenys Holly BAND % Normal 0-5 [facility] Comment on above: Performed By: #### M G, CMP, TSH, T7, BNP #### [facility] [address] [address] [address] Glenys Holly BASOM # 0.20 103/ul Critically high 0.00-0.10 [facility] Comment on above: Performed By: #### M G, CMP, TSH, T7, BNP #### [facility] [address] [address] [address] Glenys Holly BASOM % 1.0 % Normal 0.2-2.0 [facility] Comment on above: Performed By: #### M G, CMP, TSH, T7, BNP #### [facility] [address] [address] [address] Glenys Holly BLAST # Normal [facility] Comment on above: Performed By: #### M G, CMP, TSH, T7, BNP #### [facility] [address] [address] [address] Glenys Holly BLAST % Normal [facility] Comment on above: Performed By: #### M G, CMP, TSH, T7, BNP #### [facility] [address] [address] [address] Glenys Holly CORRECTED WBC Normal 4.0-11.0 [facility] Comment on above: Performed By: #### M G, CMP, TSH, T7, BNP #### [facility] [address] [address] [address] Glenys Holly EOS # 0.00 103/ul Normal 0.00-0.70 [facility] Comment on above: Performed By: #### M G, CMP, TSH, T7, BNP #### [facility] [address] [address] [address] Glenys Holly EOS% 0.0 % Critically low 0.9-7.0 [facility] Comment on above: Performed By: #### M G, CMP, TSH, T7, BNP #### [facility] [address] [place] [address] Dr. Glenys Holly HCT 45.0 % Normal 36.0-48.0 [facility] Comment on above: Performed By: #### M G, CMP, TSH, T7, BNP #### [facility] [address] [address] [address] Glenys Holly HGB 15.2 g/dl Normal 12.0-16.0 [facility] Comment on above: Performed By: #### M G, CMP, TSH, T7, BNP #### [facility] [address] [address] [address] Glenys Holly LYMPHM # 2.80 103/ul Normal 1.20-3.80 [facility] Comment on above: Performed By: #### M G, CMP, TSH, T7, BNP #### [facility] [address] [address] [address] Glenys Holly LYMPHM% 14.0 % Critically low 20.5-60.0 [facility] Comment on above: Performed By: #### M G, CMP, TSH, T7, BNP #### [facility] [address] [address] [address] Glenys Holly MCH 30.6 pg Normal 26.7-34.0 [facility] Comment on above: Performed By: #### M G, CMP, TSH, T7, BNP #### [facility] [address] [address] [address] Glenys Holly MCHC 33.8 g/dl Normal 29.9-35.2 [facility] Comment on above: Performed By: #### M G, CMP, TSH, T7, BNP #### [facility] [address] [address] [address] Glenys Holly MCV 90.7 fL Normal 81.0-99.0 [facility] Comment on above: Performed By: #### M G, CMP, TSH, T7, BNP #### [facility] [address] [place] [address] Dr. Glenys Holly METAMYELOCYTE # Normal [facility] Comment on above: Performed By: #### M G, CMP, TSH, T7, BNP #### [facility] [address] [place] [address] Dr. Glenys Holly METAMYELOCYTE % Normal [facility] Comment on above: Performed By: #### M G, CMP, TSH, T7, BNP #### [facility] [address] [address] [address] Glenys Holly MONOM# 2.40 103/ul Critically high 0.30-0.80 [facility] Comment on above: Performed By: #### M G, CMP, TSH, T7, BNP #### [facility] [address] [place] [address] Dr. Glenys Holly MONOM% 12.0 % Normal 1.7-12.0 [facility] Comment on above: Performed By: #### M G, CMP, TSH, T7, BNP #### [facility] [address] [place] [address] Dr. Glenys Holly MPV 11.5 fL Normal 9.5-13.5 [facility] Comment on above: Performed By: #### M G, CMP, TSH, T7, BNP #### [facility] [address] [address] [address] Glenys Holly MYELOCYTE # Normal [facility] Comment on above: Performed By: #### M G, CMP, TSH, T7, BNP #### [facility] [address] [address] [address] Glenys Holly MYELOCYTE % Normal [facility] Comment on above: Performed By: #### M G, CMP, TSH, T7, BNP #### [facility] [address] [address] [address] Glenys Holly NRBC Normal [facility] Comment on above: Performed By: #### M G, CMP, TSH, T7, BNP #### [facility] [address] [address] [address] Glenys Holly PLT 323 103/ul Normal 150-450 [facility] Comment on above: Performed By: #### M G, CMP, TSH, T7, BNP #### [facility] [address] [address] [address] Glenys Holly RBC 4.96 106/ul Normal 4.20-5.40 [facility] Comment on above: Performed By: #### M G, CMP, TSH, T7, BNP #### [facility] [address] [address] [address] Glenys Holly RDW 14.4 % Normal 11.0-15.0 [facility] Comment on above: Performed By: #### M G, CMP, TSH, T7, BNP #### [facility] [address] [address] [address] Glenys Holly SEG # 14.60 103/ul Critically high 1.40-6.50 [facility] Comment on above: Performed By: #### M G, CMP, TSH, T7, BNP #### [facility] [address] [address] [address] Glenys Holly SEG % 73.0 % Normal 43.0-75.0 [facility] Comment on above: Performed By: #### M G, CMP, TSH, T7, BNP #### [facility] [address] [address] [address] Glenys Holly WBC 20.0 103/ul Critically high 4.0-11.0 [facility] Comment on above: Performed By: #### M G, CMP, TSH, T7, BNP #### [facility] [id number] Glenys Holly CT ABD/PELV W CONon 03-29-[address] ABD/PELV W CON EXAMINATION: CT ABD/ [...] for patient's symptoms. Electronically authenticated by: RAMIRO SPENCER Date: 2022-03-29 11:27 Normal [facility] ER URINE PROFILEon 2 Bilirubin Ql (U) Negative Normal NEGATIVE [facility] Comment on above: Performed By: #### M G, CMP, TSH, T7, BNP #### [facility] [address] [place], [place] [address] Dr. Glenys Holly Clarity (U) CLEAR Normal CLEAR [facility] Comment on above: Performed By: #### M G, CMP, TSH, T7, BNP #### [facility] [address] [address] [address] Glenys Holly Color (U) LT. YELLOW Normal YELLOW [facility] Comment on above: Performed By: #### M G, CMP, TSH, T7, BNP #### [facility] [address] [address] [address] Glenys CASILLASAHFranky A micrscopic examina tion will be performed if indicated. Normal [facility] Comment on above: Performed By: #### M G, CMP, TSH, T7, BNP #### [facility] [address] [address] [address] Glenys Holly Glucose Ql (U) Negative Normal NEGATIVE [facility] Comment on above: Performed By: #### M G, CMP, TSH, T7, BNP #### [facility] [address] [address] [address] Glenys Holly Hemoglobin Ql (U) MODERATE Abnormal NEGATIVE [facility] Comment on above: Performed By: #### M G, CMP, TSH, T7, BNP #### [facility] [address] [address] [address] Glenys Holly Ketones Ql (U) 15 mg/dl Abnormal NEGATIVE [facility] Comment on above: Performed By: #### M G, CMP, TSH, T7, BNP #### [facility] [address] [address] [address] Glenys Holly LEUKOCYTES LARGE Abnormal NEGATIVE [facility] Comment on above: Performed By: #### M G, CMP, TSH, T7, BNP #### [facility] [address] [address] [address] Glenys Holly Nitrite Ql (U) Negative Normal NEGATIVE [facility] Comment on above: Performed By: #### M G, CMP, TSH, T7, BNP #### [facility] [address] [address] [address] Glenys Holly pH (U) 6.5 [pH] Normal 5-9 [facility] Comment on above: Performed By: #### M G, CMP, TSH, T7, BNP #### [facility] [address] [place] [address] Dr. Glenys Holly SPEC GRAVITY 1.015 Normal 1.005-<=1.0 25 [facility] Comment on above: Performed By: #### M G, CMP, TSH, T7, BNP #### [facility] [address] [place] [address] Dr. Glenys Holly UA PROTEIN TRACE Normal NEGATIVE/ TRACE [facility] Comment on above: Performed By: #### M G, CMP, TSH, T7, BNP #### [facility] [address] [place] [address] Dr. Glenys Holly UR MICRO IND INDICATED Normal [facility] Comment on above: Performed By: #### M G, CMP, TSH, T7, BNP #### [facility] [address] [place] [address] Dr. Glenys Holly Urobilinogen Qn (U) 0.2 {Phoebe'U}/dL Normal 0.2 - 1. 0 [facility] Comment on above: Performed By: #### M G, CMP, TSH, T7, BNP #### [facility] [address] [place] [address] Dr. Glenys Holly LIPASEon 03-29-2022 Lipase [Catalytic activity/Vol] 62.0 U/L Critically low 73.0-393.0 [facility] Comment on above: Performed By: #### M G, CMP, TSH, T7, BNP #### [facility] [address] [place] [address] Dr. Glenys Holly PROF 14(COMP METB)on 022 Albumin [Mass/Vol] 3.7 g/dL Normal 3.4-5.0 [facility] Comment on above: Performed By: #### M G, CMP, TSH, T7, BNP #### [facility] [address] [place] [address] Dr. Glenys Holly Albumin/Globulin [Mass ratio] 1.2 {ratio} Normal [facility] Comment on above: Performed By: #### M G, CMP, TSH, T7, BNP #### [facility] [address] [address] [address] Glenys Holly ALP [Catalytic activity/Vol] 106 U/L Normal 46-116 [facility] Comment on above: Performed By: #### M G, CMP, TSH, T7, BNP #### [facility] [address] [place] [address] Dr. Glenys Holly ALT [Catalytic activity/Vol] 17 U/L Normal 14-59 [facility] Comment on above: Performed By: #### M G, CMP, TSH, T7, BNP #### [facility] [address] [place] [address] Dr. Glenys Holly Anion gap [Moles/Vol] 11.8 mmol/L Normal [facility] Comment on above: Performed By: #### M G, CMP, TSH, T7, BNP #### [facility] [address] [place] [address] Dr. Glenys Holly AST [Catalytic activity/Vol] 19 U/L Normal 15-37 [facility] Comment on above: Performed By: #### M G, CMP, TSH, T7, BNP #### [facility] [address] [place] [address] Dr. Glenys Holly Bilirubin [Mass/Vol] 0.8 mg/dL Normal 0.2-1.0 [facility] Comment on above: Performed By: #### M G, CMP, TSH, T7, BNP #### [facility] [address] [place] [address] Dr. Glenys Holly Calcium [Mass/Vol] 9.8 mg/dL Normal 8.5-10.1 [facility] Comment on above: Performed By: #### M G, CMP, TSH, T7, BNP #### [facility] [address] [place] [address] Dr. Glenys Holly Chloride [Moles/Vol] 101 mmol/L Normal 98-107 [facility] Comment on above: Performed By: #### M G, CMP, TSH, T7, BNP #### [facility] [address] [place] [address] Dr. Glenys Holly CO2 [Moles/Vol] 26.2 mmol/L Normal 21.0-32.0 [facility] Comment on above: Performed By: #### M G, CMP, TSH, T7, BNP #### [facility] [address] [address] [address] Glenys Holly Creatinine [Mass/Vol] 0.76 mg/dL Normal 0.55-1.02 [facility] Comment on above: Performed By: #### M G, CMP, TSH, T7, BNP #### [facility] [address] [address] [address] Glenys Holly EGFR-AF JAMAICAN >60 Normal >=60 [facility] Comment on above: Performed By: #### M G, CMP, TSH, T7, BNP #### [facility] [address] [address] [address] Glenys Holly EGFR-NON AF J[place]ICAN >60 Normal >=60 [facility] Comment on above: Performed By: #### M G, CMP, TSH, T7, BNP #### [facility] [address] [address] [address] Glenys Holly Globulin (S) [Mass/Vol] 3.2 g/dL Normal [facility] Comment on above: Performed By: #### M G, CMP, TSH, T7, BNP #### [facility] [address] [address] [address] Glenys Holly Glucose [Mass/Vol] 103 mg/dL Normal 74-106 [facility] Comment on above: Performed By: #### M G, CMP, TSH, T7, BNP #### [facility] [address] [address] [address] Glenys Holly Potassium [Moles/Vol] 3.0 mmol/L Critically low 3.5-5.1 [facility] Comment on above: Performed By: #### M G, CMP, TSH, T7, BNP #### [facility] [address] [address] [address] Glenys Holly Protein [Mass/Vol] 6.9 g/dL Normal 6.4-8.2 [facility] Comment on above: Performed By: #### M G, CMP, TSH, T7, BNP #### [facility] [address] [address] [address] Glenys Holly Sodium [Moles/Vol] 136 mmol/L Normal 136-145 [facility] Comment on above: Performed By: #### M G, CMP, TSH, T7, BNP #### [facility] [address] [address] [address] Glenys Holly Urea nitrogen [Mass/Vol] 16.0 mg/dL Normal 7.0-18.0 [facility] Comment on above: Performed By: #### M G, CMP, TSH, T7, BNP #### [facility] [address] [place] [address] Dr. Glenys Holly Urea nitrogen/Creatinine [Mass ratio] 21.1 mg/mg Normal [facility] Comment on above: Performed By: #### M G, CMP, TSH, T7, BNP #### [facility] [address] [place] [address] Dr. Glenys Holly TROPONIN, HIGH SENSITIVITYon 03-29-2022 HSTROP 30.7 pg/mL Normal 4.0-51.3 [facility] Comment on above: Result Comment: CUT- OFF POINTS HAVE BEEN ESTABLISHED BASED ON THE FOURTH UNIVERSAL DEFINITIONS OF MYOCARDIAL INFARCTION. THE UPPER REFERENCE LIMIT (URL) OF TROPONIN, DEFINED THE 99TH PERCENTILE OF cTnI DISTRIBUTION IN A REFERENCE POPULATION, HAS BEEN CONFIRMED THE DECISION THRESHOLD FOR MD DIAGNOSIS. Performed By: #### M G, CMP, TSH, T7, BNP #### [facility] [address] [place] [address] Dr. Glenys Holly URINE MICROSCOPIC ONLYon BACTERIA MODERATE Abnormal NONE SEEN [facility] Comment on above: Performed By: #### M G, CMP, TSH, T7, BNP #### [facility] [address] [place] [address] Dr. Glenys Holly Bacteria identified Cx Nom (U) INDICATED Normal [facility] Comment on above: Performed By: #### M G, CMP, TSH, T7, BNP #### [facility] [address] [place] [address] Dr. Glenys Holly CA OX CRYSTALS MODERATE Normal [facility] Comment on above: Performed By: #### M G, CMP, TSH, T7, BNP #### [facility] [address] [address] [address] Glenys Holly CAST NONE SEEN Normal NONE SEEN [facility] Comment on above: Performed By: #### M G, CMP, TSH, T7, BNP #### [facility] [address] [address] [address] Glenys Holly Crystals LM Nom (Urine sed) SEEN Abnormal NONE SEEN [facility] Comment on above: Performed By: #### M G, CMP, TSH, T7, BNP #### [facility] [address] [address] [address] Glenys Holly Epithelial cells LM Ql (Urine sed) FEW Abnormal NONE SEEN /RARE [facility] Comment on above: Performed By: #### M G, CMP, TSH, T7, BNP #### [facility] [address] [address] [address] Glenys Holly MUCOUS NONE SEEN Normal NONE SEEN [facility] Comment on above: Performed By: #### M G, CMP, TSH, T7, BNP #### [facility] [address] [address] [address] Glenys Holly RBC 5-10 Abnormal 0-2 [facility] Comment on above: Performed By: #### M G, CMP, TSH, T7, BNP #### [facility] [address] [address] [address] Glenys Holly WBC 20-50 Abnormal NONE SEEN [facility] Comment on above: Performed By: #### M G, CMP, TSH, T7, BNP #### [facility] [address] [address] [address] Glenys Holly XR ABD FLAT UP_PA [...] suspicious abdominal findings. Electronically authenticated by: RAMIRO SPENCER Date: 2022-03-29 09:27 Normal [facility] CT HEAD WO CONon 12-27-2021 CT HEAD [...] vessel ischemic changes. Electronically authenticated by: RAMIRO SPENCER Date: 2021-12-27 12:48 Normal [facility] Discharge Summaryon 08-18-19 18 Discharge Summary MR#: [id number] Admitted: 08/11/2017 Discharged: 08/15/2017 Date of : [...] intraperitoneal bleeding. [facility].Upon arrival to [facility], no other injuries were noted. The patientwas [...] 4-6 hours as needed for pain and Ypcofj632 mg b.i.d. for opioid related constipation.Electronicall y Signed by:Supa May M.D. 08/29/2017 12:01 P Supa May M.D. I personally saw this patient on the day of the encounter, performed thekey portion(s) of the service and participated in the management andconfirm the resident's documentation. Please note there may be anadditional personal documentation from me. Date Dict: 08/16/2017/10:11 A/Josh Palmer, MDDate Trans: 08/17/2017 06:00 A/[id number] Normal [facility] BASIC METABOLIC PANELon 03-0 Calcium 8.8 mg/dL Normal 8.6-10.3 [facility] Comment on above: Order Comment: No: D o not add to previous draw Performed By: #### 0 0121, 74513 ####[facility] [place] [address], [facility] Chloride 97 mmol/L Low 98-107 [facility] Comment on above: Order Comment: No: D o not add to previous draw Performed By: #### 0 0121, 29929 ####[facility] [place] [address], [facility] CO2 33 mmol/L High 21-31 [facility] Comment on above: Order Comment: No: D o not add to previous draw Performed By: #### 0 0121, 44176 ####[facility] [place] [address], [facility] Creatinine 0.75 mg/dL Normal 0.60-1.20 [facility] Comment on above: Order Comment: No: D o not add to previous draw Performed By: #### 0 0121, 23239 ####[facility] [place] [address], [facility] eGFR (black) mL/min/{1.73_m2} Normal >60 [facility] Comment on above: Order Comment: No: D o not add to previous draw Result Comment: Calc ulation may not be valid for patients over 70 years Performed By: #### 0 0121, 11420 ####[facility] eGFR (non-black) mL/min/{1.73_m2} Normal >60 [facility] Comment on above: Order Comment: No: D o not add to previous draw Result Comment: Calc ulation may not be valid for patients over 70 years Performed By: #### 0 0121, 13868 ####[facility] [facility] [place] [place] [address], [facility] Glucose mass conc 91 mg/dL Normal 70-100 [facility] Comment on above: Order Comment: No: D o not add to previous draw Performed By: #### 0 0121, 17821 ####[facility] [facility] [place] [address], [facility] Potassium molar conc 2.8 mmol/L Low 3.5-5.1 [facility] Comment on above: Order Comment: No: D o not add to previous draw Performed By: #### 0 0121, 38731 ####[facility] [place] [place] [address], [facility] Sodium 137 mmol/L Normal 136-145 [facility] Comment on above: Order Comment: No: D o not add to previous draw Performed By: #### 0 0121, 14875 ####[facility] [place] [address], [facility] Urea nitrogen 13 mg/dL Normal 7-25 [facility] Comment on above: Order Comment: No: D o not add to previous draw Performed By: #### 0 0121, 85543 ####[facility] [facility].[address] CBC COMPLETE BLOOD COUNTon 0 08-15-2017 Erythrocyte distribution width Auto Ratio (RBC) 14.6 % Normal 11.5-15.0 [facility] Comment on above: Order Comment: No: D o not add to previous draw Performed By: #### 5 610, 58343 ####[facility] [facility] Erythrocytes (RBC) 4.05 10*6/uL Normal 3.80-5.00 [facility] Comment on above: Order Comment: No: D o not add to previous draw Performed By: #### 5 610, 19476 ####[facility] [facility] Erythrocytes (RBC) 0 % Normal 0-0 [facility] Comment on above: Order Comment: No: D o not add to previous draw Performed By: #### 5 610, 45039 ####[facility] [facility].[address] Hematocrit (HCT) 36.8 % Normal 36.0-45.0 [facility] Comment on above: Order Comment: No: D o not add to previous draw Performed By: #### 5 610, 57035 ####[facility] Hemoglobin mass conc (Bld) 12.3 g/dL Normal 12.0-15.0 [facility] Comment on above: Order Comment: No: D o not add to previous draw Performed By: #### 5 610, 30203 ####[address] MCH 30.4 pg Normal 27.0-33.0 [facility] Comment on above: Order Comment: No: D o not add to previous draw Performed By: #### 5 6101, 44872 ####[address] MCHC mass conc (RBC) 33.4 g/dL Normal 32.0-35.0 [facility] Comment on above: Order Comment: No: D o not add to previous draw Performed By: #### 5 6101, 21038 ####[address] MCV 90.9 fL Normal 82.0-98.0 [facility] Comment on above: Order Comment: No: D o not add to previous draw Performed By: #### 5 6101, 58607 ####[address] PLAT CNT 196 10*3/uL Normal 150-400 [facility] Comment on above: Order Comment: No: D o not add to previous draw Performed By: #### 5 6101, 25575 ####[address] WBC (Leukocytes) 11.0 10*3/uL High 4.0-10.6 [facility] Comment on above: Order Comment: No: D o not add to previous draw Performed By: #### 5 6101, 29916 ####[address] PORTABLE CHEST 1 VIEWon 03-0 PORTABLE CHEST 1 VIEW [facility] [place] [address] Sera ent Name: JUDITH KHAN : 1945Sex: FAge: Race: WhiteMRN: [id number]. Location: [id number] Status: IVisit #: [id number] Date: 08/15/2017 7:05:00 AMCompleted Date: 08/15/2017 07:54 AMRequesting Provider: JOSH PALMER Attending Provider: ALEXANDER OLSON Report Copy To: Signs & Symptoms: O2 DesaturationHistory: Patient history not availableComments: R/O EffusionExam: PORTABLE CHEST 1 VIEWAccession #: [id number] ===PORTABLE CHEST 1 VIEW 08/15/2017 7:54 AM [...] on 08/15/2017 8:20 AM EST. I, Nina Beaver, have reviewed the images and report and concur with these findings. Electronically signed by:Nina Beaver. Transcribed by: [email or web address], User Resident: JAZMIN MARElectronically Signed by: NINA BEAVER @ 08/15/2017 10:25 AMI personally read this/these film(s) with this resident Normal [facility] Comment on above: Order Comment: R/O E ffusion BASIC METABOLIC PANELon 03-0 Calcium 8.6 mg/dL Normal 8.6-10.3 [facility] Comment on above: Order Comment: No: D o not add to previous draw Performed By: #### 0 0121, 51907 ####[facility] [place] [address], [facility] Chloride 103 mmol/L Normal 98-107 [facility] Comment on above: Order Comment: No: D o not add to previous draw Performed By: #### 0 0121, 17928 ####[facility] [place] [address], [place] CO2 30 mmol/L Normal 21-31 [facility] Comment on above: Order Comment: No: D o not add to previous draw Performed By: #### 0 0121, 62413 ####[facility] [place] [address], [facility] Creatinine 0.60 mg/dL Normal 0.60-1.20 [facility] Comment on above: Order Comment: No: D o not add to previous draw Performed By: #### 0 0121, 76553 ####[facility] [place] [address], [facility] eGFR (black) mL/min/{1.73_m2} Normal >60 [facility] Comment on above: Order Comment: No: D o not add to previous draw Result Comment: Calc ulation may not be valid for patients over 70 years Performed By: #### 0 0121, 16959 ####[facility] [place] [address], [place] eGFR (non-black) mL/min/{1.73_m2} Normal >60 [facility] Comment on above: Order Comment: No: D o not add to previous draw Result Comment: Calc ulation may not be valid for patients over 70 years Performed By: #### 0 0121, 56218 ####[facility] [place] [address], [place] Glucose mass conc 81 mg/dL Normal 70-100 [facility] Comment on above: Order Comment: No: D o not add to previous draw Performed By: #### 0 0121, 22560 ####[facility] [place] [address], [facility] Potassium molar conc 3.0 mmol/L Low 3.5-5.1 [facility] Comment on above: Order Comment: No: D o not add to previous draw Performed By: #### 0 0121, 87531 ####[facility] Sodium 138 mmol/L Normal 136-145 [facility] Comment on above: Order Comment: No: D o not add to previous draw Performed By: #### 0 0121, 44800 ####[facility] Urea nitrogen 12 mg/dL Normal 7-25 [facility] Comment on above: Order Comment: No: D o not add to previous draw Performed By: #### 0 0121, 06603 ####[facility] [facility] CBC COMPLETE BLOOD COUNTon 0 08-14-2017 Erythrocyte distribution width Auto Ratio (RBC) 14.9 % Normal 11.5-15.0 [facility] Comment on above: Order Comment: No: D o not add to previous draw Performed By: #### 0 0121, 64282 ####[facility] Erythrocytes (RBC) 3.80 10*6/uL Normal 3.80-5.00 [facility] Comment on above: Order Comment: No: D o not add to previous draw Performed By: #### 0 0121, 26393 ####[facility] Erythrocytes (RBC) 0 % Normal 0-0 [facility] Comment on above: Order Comment: No: D o not add to previous draw Performed By: #### 0 0121, 70065 ####[facility] Hematocrit (HCT) 34.3 % Low 36.0-45.0 [facility] Comment on above: Order Comment: No: D o not add to previous draw Performed By: #### 0 0121, 04727 ####[facility] Hemoglobin mass conc (Bld) 11.7 g/dL Low 12.0-15.0 [facility] Comment on above: Order Comment: No: D o not add to previous draw Performed By: #### 0 0121, 12421 ####[facility] [facility].[address] MCH 30.8 pg Normal 27.0-33.0 [facility] Comment on above: Order Comment: No: D o not add to previous draw Performed By: #### 0 0121, 46191 ####[facility] [facility].[address] MCHC mass conc (RBC) 34.1 g/dL Normal 32.0-35.0 [facility] Comment on above: Order Comment: No: D o not add to previous draw Performed By: #### 0 0121, 90811 ####[facility] [facility].[address] MCV 90.3 fL Normal 82.0-98.0 [facility] Comment on above: Order Comment: No: D o not add to previous draw Performed By: #### 0 0121, 46123 ####[facility] [place] [address], [facility] PLAT CNT 134 10*3/uL Low 150-400 [facility] Comment on above: Order Comment: No: D o not add to previous draw Performed By: #### 0 0121, 48521 ####[address] WBC (Leukocytes) 11.5 10*3/uL High 4.0-10.6 [facility] Comment on above: Order Comment: No: D o not add to previous draw Performed By: #### 0 0121, 12028 ####[address] MAGNESIUM BLOODon 08-14-2017 Magnesium 1.9 mg/dL Normal 1.9-2.7 [facility] Comment on above: Order Comment: No: D o not add to previous draw Performed By: #### 0 0121, 30205 ####[address] PHOSPHORUS BLOODon 8 Phosphate 2.5 mg/dL Normal 2.5-5.0 [facility] Comment on above: Order Comment: No: D o not add to previous draw Performed By: #### 0 0121, 70673 ####[address] PORTABLE CHEST 1 VIEWon PORTABLE CHEST 1 VIEW [facility] [address] [place] [address] Sera ent Name: JUDITH KHAN : 1945Sex: FAge: Race: WhiteMRN: [id number]. Location: [id number] Status: IVisit #: [id number] Date: 08/14/2017 8:00:00 AMCompleted Date: 08/14/2017 08:34 AMRequesting Provider: JOSH PALMER Attending Provider: ALEXANDER OLSON Report Copy To: Signs & Symptoms: O2 DesaturationHistory: Patient history not availableComments: R/O AtelectasisExam: PORTABLE CHEST 1 VIEWAccession #: [id number] ===PORTABLE CHEST 1 VIEW 08/14/2017 8:34 AM [...] findings. Electronically signed by:Kristian Nascimento. Transcribed by: [email or web address], User Resident: JAZMIN MARElectronically Signed by: KRISTIAN NASCIMENTO @ 08/14/2017 09:18 PMI personally read this/these film(s) with this resident Normal [facility] Comment on above: Order Comment: R/O A telectasis BASIC METABOLIC PANELon 03-0 Calcium 8.4 mg/dL Low 8.6-10.3 [facility] Comment on above: Order Comment: No: D o not add to previous draw Performed By: #### 0 0121, 36677 ####[facility] [place] [address], [facility] Chloride 109 mmol/L High 98-107 [facility] Comment on above: Order Comment: No: D o not add to previous draw Performed By: #### 0 0121, 85426 ####[facility] [place] [address], [facility] CO2 30 mmol/L Normal 21-31 [facility] Comment on above: Order Comment: No: D o not add to previous draw Performed By: #### 0 0121, 99475 ####[facility] [place] [address], [facility] Creatinine 0.62 mg/dL Normal 0.60-1.20 [facility] Comment on above: Order Comment: No: D o not add to previous draw Performed By: #### 0 0121, 87858 ####[facility] eGFR (black) mL/min/{1.73_m2} Normal >60 [facility] Comment on above: Order Comment: No: D o not add to previous draw Result Comment: Calc ulation may not be valid for patients over 70 years Performed By: #### 0 0121, 11702 ####[facility] eGFR (non-black) mL/min/{1.73_m2} Normal >60 [facility] Comment on above: Order Comment: No: D o not add to previous draw Result Comment: Calc ulation may not be valid for patients over 70 years Performed By: #### 0 0121, 98920 ####[facility] [place] [address], [facility] Glucose mass conc 99 mg/dL Normal 70-100 [facility] Comment on above: Order Comment: No: D o not add to previous draw Performed By: #### 0 0121, 83549 ####[facility] Potassium molar conc 3.2 mmol/L Low 3.5-5.1 [facility] Comment on above: Order Comment: No: D o not add to previous draw Performed By: #### 0 0121, 48408 ####[facility] Sodium 143 mmol/L Normal 136-145 [facility] Comment on above: Order Comment: No: D o not add to previous draw Performed By: #### 0 0121, 48248 ####[facility] Urea nitrogen 14 mg/dL Normal 7-25 [facility] Comment on above: Order Comment: No: D o not add to previous draw Performed By: #### 0 0121, 79734 ####[facility] CBC COMPLETE BLOOD COUNTon 0 - Erythrocyte distribution width Auto Ratio (RBC) 15.9 % High 11.5-15.0 [facility] Comment on above: Order Comment: No: D o not add to previous draw Performed By: #### 0 0121, 49627 ####[facility] Erythrocytes (RBC) 0 % Normal 0-0 [facility] Comment on above: Order Comment: No: D o not add to previous draw Performed By: #### 0 0121, 98329 ####[facility] Erythrocytes (RBC) 3.76 10*6/uL Low 3.80-5.00 [facility] Comment on above: Order Comment: No: D o not add to previous draw Performed By: #### 0 0121, 53355 ####[facility] Hematocrit (HCT) 34.3 % Low 36.0-45.0 [facility] Comment on above: Order Comment: No: D o not add to previous draw Performed By: #### 0 0121, 87583 ####[facility] Hemoglobin mass conc (Bld) 11.4 g/dL Low 12.0-15.0 [facility] Comment on above: Order Comment: No: D o not add to previous draw Performed By: #### 0 0121, 77081 ####[facility] MCH 30.3 pg Normal 27.0-33.0 [facility] Comment on above: Order Comment: No: D o not add to previous draw Performed By: #### 0 0121, 67820 ####[facility] [facility].[address] MCHC mass conc (RBC) 33.2 g/dL Normal 32.0-35.0 [facility] Comment on above: Order Comment: No: D o not add to previous draw Performed By: #### 0 0121, 88438 ####[facility] MCV 91.2 fL Normal 82.0-98.0 [facility] Comment on above: Order Comment: No: D o not add to previous draw Performed By: #### 0 0121, 54040 ####[facility] [facility].[address] PLAT CNT 95 10*3/uL Low 150-400 [facility] Comment on above: Order Comment: No: D o not add to previous draw Performed By: #### 0 0121, 19054 ####[facility] WBC (Leukocytes) 9.1 10*3/uL Normal 4.0-10.6 [facility] Comment on above: Order Comment: No: D o not add to previous draw Performed By: #### 0 0121, 22148 ####[facility] [place] [address], [facility] MAGNESIUM BLOODon 08-13-2017 Magnesium 1.8 mg/dL Low 1.9-2.7 [facility] Comment on above: Order Comment: No: D o not add to previous draw Performed By: #### 0 0121, 36283 ####[facility] [place] [address], [facility] PHOSPHORUS BLOODon 8 Phosphate 1.9 mg/dL Low 2.5-5.0 [facility] Comment on above: Order Comment: No: D o not add to previous draw Performed By: #### 0 0121, 96309 ####[facility] BASIC METABOLIC PANELon Calcium 8.4 mg/dL Low 8.6-10.3 [facility] Comment on above: Order Comment: No: D o not add to previous draw Performed By: #### 0 0121, 75518 ####[facility] [place] [address], [facility] Chloride 113 mmol/L High 98-107 [facility] Comment on above: Order Comment: No: D o not add to previous draw Performed By: #### 0 0121, 89924 ####[facility] [place] [address], [facility] CO2 25 mmol/L Normal 21-31 [facility] Comment on above: Order Comment: No: D o not add to previous draw Performed By: #### 0 0121, 47190 ####[facility] [place] [address], [facility] Creatinine 0.75 mg/dL Normal 0.60-1.20 [facility] Comment on above: Order Comment: No: D o not add to previous draw Performed By: #### 0 0121, 97522 ####[facility] [place] [address], [facility] eGFR (black) mL/min/{1.73_m2} Normal >60 [facility] Comment on above: Order Comment: No: D o not add to previous draw Result Comment: Calc ulation may not be valid for patients over 70 years Performed By: #### 0 0121, 62145 ####[facility] eGFR (non-black) mL/min/{1.73_m2} Normal >60 [facility] Comment on above: Order Comment: No: D o not add to previous draw Result Comment: Calc ulation may not be valid for patients over 70 years Performed By: #### 0 0121, 23009 ####[facility] [place] [address], [facility] Glucose mass conc 116 mg/dL High 70-100 [facility] Comment on above: Order Comment: No: D o not add to previous draw Performed By: #### 0 0121, 37413 ####[facility] [place] [address], [facility] Potassium molar conc 3.6 mmol/L Normal 3.5-5.1 [facility] Comment on above: Order Comment: No: D o not add to previous draw Performed By: #### 0 0121, 29682 ####[facility] [place] [address], [facility] Sodium 144 mmol/L Normal 136-145 [facility] Comment on above: Order Comment: No: D o not add to previous draw Performed By: #### 0 0121, 92764 ####[facility] Urea nitrogen 16 mg/dL Normal 7-25 [facility] Comment on above: Order Comment: No: D o not add to previous draw Performed By: #### 0 0121, 29538 ####[facility] CBC COMPLETE BLOOD COUNTon 0 08-12-2017 Erythrocyte distribution width Auto Ratio (RBC) 16.3 % High 11.5-15.0 [facility] Comment on above: Order Comment: No: D o not add to previous draw Performed By: #### 0 0121, [id number] ####[facility] Erythrocytes (RBC) 4.15 10*6/uL Normal 3.80-5.00 [facility] Comment on above: Order Comment: No: D o not add to previous draw Performed By: #### 0 0121, [id number] ####[facility] Erythrocytes (RBC) 0 % Normal 0-0 [facility] Comment on above: Order Comment: No: D o not add to previous draw Performed By: #### 0 0121, [id number] ####[facility] Hematocrit (HCT) 37.6 % Normal 36.0-45.0 [facility] Comment on above: Order Comment: No: D o not add to previous draw Performed By: #### 0 0121, [id number] ####[facility] [place] [address], [facility] Hemoglobin mass conc (Bld) 12.5 g/dL Normal 12.0-15.0 [facility] Comment on above: Order Comment: No: D o not add to previous draw Performed By: #### 0 0121, [id number] ####[facility] MCH 30.1 pg Normal 27.0-33.0 [facility] Comment on above: Order Comment: No: D o not add to previous draw Performed By: #### 0 0121, 53613 ####[facility] MCHC mass conc (RBC) 33.2 g/dL Normal 32.0-35.0 [facility] Comment on above: Order Comment: No: D o not add to previous draw Performed By: #### 0 0121, [id number] ####[facility] MCV 90.6 fL Normal 82.0-98.0 [facility] Comment on above: Order Comment: No: D o not add to previous draw Performed By: #### 0 0121, [id number] ####[facility] PLAT CNT 89 10*3/uL Low 150-400 [facility] Comment on above: Order Comment: No: D o not add to previous draw Performed By: #### 0 0121, 80592 ####[facility] WBC (Leukocytes) 13.5 10*3/uL High 4.0-10.6 [facility] Comment on above: Order Comment: No: D o not add to previous draw Performed By: #### 0 0121, [id number] ####[facility] HEMATOCRITon 08-12-2017 Hematocrit (HCT) 37.6 % Normal 36.0-45.0 [facility] Comment on above: Order Comment: No: D o not add to previous draw Performed By: #### 0 0121, 40163 ####[facility] HEMOGLOBINon 08-12-2017 Hemoglobin mass conc (Bld) 12.6 g/dL Normal 12.0-15.0 [facility] Comment on above: Order Comment: No: D o not add to previous drawLAB DRAW NOW - PER CECY MCELROY Performed By: #### 0 0121, 16096 ####[facility] MAGNESIUM BLOODon 08-12-2017 Magnesium 1.9 mg/dL Normal 1.9-2.7 [facility] Comment on above: Order Comment: No: D o not add to previous draw Performed By: #### 0 0121, 75969 ####[facility] PHOSPHORUS BLOODon 8 Phosphate 2.1 mg/dL Low 2.5-5.0 [facility] Comment on above: Order Comment: No: D o not add to previous draw Performed By: #### 0 0121, 76440 ####[facility] PORTABLE CHEST 1 VIEWon PORTABLE CHEST 1 VIEW [facility] [place], [place] [id number] Sera ent Name: JUDITH KHAN : 1945Sex: FAge: Race: WhiteMRN: [id number]. Location: [id number] Status: IVisit #: [id number] Date: 08/12/2017 7:00:00 AMCompleted Date: 08/12/2017 09:16 AMRequesting Provider: SHANON HERNANDEZ Attending Provider: ALEXANDER OLSON Report Copy To: Signs & Symptoms: O2 DesaturationHistory: Patient history not availableComments: R/O AtelectasisExam: PORTABLE CHEST 1 VIEWAccession #: [id number] ===PORTABLE CHEST 1 VIEW 08/12/2017 9:16 AM [...] than left could represent atelectasis. Approved by:Andrzej Torres on 08/12/2017 11:08 AM EST. I, Kristian Nascimento, have reviewed the images and report and concur with these findings. Electronically signed by:Kristian Nascimento. Transcribed by: [id number], User Resident: ANDRZEJ TORRESElectronically Signed by: KRISTIAN NASCIMENTO @ 08/12/2017 12:27 PMI personally read this/these film(s) with this resident Normal [facility] Comment on above: Order Comment: R/O A telectasis ALCOHOLon 08-11-2017 Ethanol NONE DETECTED Normal [facility] Comment on above: Result Comment: Divi de by 1000 to convert mg/dL to percent. Example: 100mg/dL = 0.1%. Performed By: #### 1 0054, 04987 ####[facility] [place] [address], [facility] APTTon 08-11-2017 aPTT 42.8 s High 25.0-35.0 [facility] Comment on above: Order Comment: No: [...] FOR THIS PURPOSE. Performed By: #### 1 53, ####[facility] aPTT 27.2 s Normal 25.0-35.0 [facility] Comment on above: Result Comment: ALL [...] THIS PURPOSE. Performed By: #### 5 6101, 03917 ####[facility] ARTERIAL BLOOD GAS WITH ICAo n 08-11-2017 BASE EXCESS -7 mmol/L Low -2-2 [facility] Comment on above: Performed By: #### 1 ####[facility] Bicarbonate (HCO3) 18 mmol/L Low 23-27 [facility] Comment on above: Performed By: #### 1 53, ####[facility] CO2 34 mmHg Low 35-45 [facility] Comment on above: Performed By: #### 1 53, ####[facility] DELIVERY SYSTEMS MV Normal [facility] Comment on above: Performed By: #### 1 ####[facility] [place] [address], [place] FIO2 40 % Normal 21-100 [facility] Comment on above: Performed By: #### 1 ####[facility] [place] [address], [place] IONIZED CALCIUM 1.13 mmol/L Normal 1.13-1.32 [facility] Comment on above: Performed By: #### 1 ####[facility] [place] [address], [place] MIN VOLUME 7.2 Normal [facility] Comment on above: Performed By: #### 1 ####[facility] [place] [address], [place] MODALITY AC Normal [facility] Comment on above: Performed By: #### 1 ####[facility] [place] [address], [place] O2 saturation 95.5 % Normal 94.0-97.0 [facility] Comment on above: Performed By: #### 1 ####[facility] [place] [address], [place] Oxygen in arterial blood 161 mm[Hg] Critically high 75-100 [facility] Comment on above: Performed By: #### 1 ####[facility] [place] [address], [place] PEEP 5.0 CMH20 Normal [facility] Comment on above: Performed By: #### 1 ####[facility] [place] [address], [place] PF RATIO 403 mmHg High 50-400 [facility] Comment on above: Performed By: #### 1 53, ####[facility] [place] [address], [facility] pH of blood 7.33 [pH] Low 7.35-7.45 [facility] Comment on above: Performed By: #### 1 53, ####[facility]3000 [facility] Respiratory rate 16 /min Normal [facility] Comment on above: Performed By: #### 1 53, ####[facility] TIDAL VOLUME (VT) CC 450 Normal [facility] Comment on above: Performed By: #### 1 53, ####[facility]3000 [facility] BASE EXCESS -9 mmol/L Low -2-2 [facility] Comment on above: Order Comment: RESUL TS CHECKED AND CALLED. ACCURATELY READ BACK BY DAT Performed By: #### 1 ####[facility] [facility] Bicarbonate (HCO3) 18 mmol/L Low 23-27 [facility] Comment on above: Order Comment: RESUL TS CHECKED AND CALLED. ACCURATELY READ BACK BY DAT Performed By: #### 1 ####[facility] [place] [address], [facility] CO2 44 mmHg Normal 35-45 [facility] Comment on above: Order Comment: RESUL TS CHECKED AND CALLED. ACCURATELY READ BACK BY DAT Performed By: #### 1 ####[facility] [place] [address], [facility] IONIZED CALCIUM 1.05 mmol/L Low 1.13-1.32 [facility] Comment on above: Order Comment: RESUL TS CHECKED AND CALLED. ACCURATELY READ BACK BY DAT Performed By: #### 1 53, ####[facility] [place] [address], [facility] O2 saturation 96.9 % Normal 94.0-97.0 [facility] Comment on above: Order Comment: RESUL TS CHECKED AND CALLED. ACCURATELY READ BACK BY DTA Performed By: #### 1 53, ####[facility] [place] [address], [facility] Oxygen in arterial blood 532 mm[Hg] Critically high 75-100 [facility] Comment on above: Order Comment: RESUL TS CHECKED AND CALLED. ACCURATELY READ BACK BY DAT Performed By: #### 1 53, ####[facility] pH of blood 7.22 [pH] Critically low 7.35-7.45 [facility] Comment on above: Order Comment: RESUL TS CHECKED AND CALLED. ACCURATELY READ BACK BY DAT Performed By: #### 1 53, ####[facility] [facility].[address] BASIC METABOLIC PANELon 03-0 Calcium 8.1 mg/dL Low 8.6-10.3 [facility] Comment on above: Order Comment: No: D o not add to previous draw Performed By: #### 1 53, ####[facility] [place] [address], [facility] Chloride 116 mmol/L High 98-107 [facility] Comment on above: Order Comment: No: D o not add to previous draw Performed By: #### 1 53, ####[facility] Creatinine 0.85 mg/dL Normal 0.60-1.20 [facility] Comment on above: Order Comment: No: D o not add to previous draw Performed By: #### 1 53, ####[facility] [place] [address], [place] Glucose mass conc 109 mg/dL High 70-100 [facility] Comment on above: Order Comment: No: D o not add to previous draw Performed By: #### 1 53, ####[facility] [place] [address], [place] Potassium molar conc 4.9 mmol/L Normal 3.5-5.1 [facility] Comment on above: Order Comment: No: D o not add to previous draw Performed By: #### 1 53, ####[facility] [place] [address], [place] Sodium 142 mmol/L Normal 136-145 [facility] Comment on above: Order Comment: No: D o not add to previous draw Performed By: #### 1 53, ####[facility] [place] [address], [place] Urea nitrogen 16 mg/dL Normal 7-25 [facility] Comment on above: Order Comment: No: D o not add to previous draw Performed By: #### 1 53, ####[facility] [place] [address], [place] Calcium 7.9 mg/dL Low 8.6-10.3 [facility] Comment on above: Order Comment: No: D o not add to previous draw Performed By: #### 1 53, ####[facility] [place] [address], [place] Chloride 113 mmol/L High 98-107 [facility] Comment on above: Order Comment: No: D o not add to previous draw Performed By: #### 1 53, ####[facility] [place] [address], [place] CO2 22 mmol/L Normal 21-31 [facility] Comment on above: Order Comment: No: D o not add to previous draw Performed By: #### 1 53, ####[facility]3000 [facility].[address] Creatinine 0.68 mg/dL Normal 0.60-1.20 [facility] Comment on above: Order Comment: No: D o not add to previous draw Performed By: #### 1 53, ####[facility]3000 [facility].[address] eGFR (black) mL/min/{1.73_m2} Normal >60 [facility] Comment on above: Order Comment: No: D o not add to previous draw Result Comment: Calc ulation may not be valid for patients over 70 years Performed By: #### 1 53, ####[facility]3000 [facility].[address] eGFR (non-black) mL/min/{1.73_m2} Normal >60 [facility] Comment on above: Order Comment: No: D o not add to previous draw Result Comment: Calc ulation may not be valid for patients over 70 years Performed By: #### 1 53, ####[facility]3000 [facility].[address] Glucose mass conc 141 mg/dL High 70-100 [facility] Comment on above: Order Comment: No: D o not add to previous draw Performed By: #### 1 53, ####[facility] [place] [address], [facility] Potassium molar conc 3.3 mmol/L Low 3.5-5.1 [facility] Comment on above: Order Comment: No: D o not add to previous draw Performed By: #### 1 53, ####[facility] Sodium 139 mmol/L Normal 136-145 [facility] Comment on above: Order Comment: No: D o not add to previous draw Performed By: #### 1 53, ####[facility] Urea nitrogen 12 mg/dL Normal 7-25 [facility] Comment on above: Order Comment: No: D o not add to previous draw Performed By: #### 1 53, ####[facility] CBC W/DIFFon 08-11-2017 ABS BASOPHILS 0.0 10*3/uL Normal 0.0-0.2 [facility] Comment on above: Performed By: #### 1 53, ####[facility] ABS IMM GRANS 0.0 10*3/uL Normal 0.0-0.2 [facility] Comment on above: Performed By: #### 1 53, ####[facility] Basophils Auto #/vol (Bld) 0.1 % Normal 0.0-1.0 [facility] Comment on above: Performed By: #### 1 53, ####[facility] Eosinophils 0.0 10*3/uL Normal 0.0-0.5 [facility] Comment on above: Performed By: #### 1 53, ####[facility] Eosinophils/100 leukocytes 0.1 % Normal 0.0-6.0 [facility] Comment on above: Performed By: #### 1 53 ####[facility]3000 [facility].[address] Erythrocyte distribution width Auto Ratio (RBC) 15.1 % High 11.5-15.0 [facility] Comment on above: Performed By: #### 1 ####[facility]3000 [facility].[address] Erythrocytes (RBC) 0 % Normal 0-0 [facility] Comment on above: Performed By: #### 1 ####[facility]3000 [facility].[address] Erythrocytes (RBC) 4.46 10*6/uL Normal 3.80-5.00 [facility] Comment on above: Performed By: #### 1 ####[place] [address] [facility].[address] Hematocrit (HCT) 40.3 % Normal 36.0-45.0 [facility] Comment on above: Performed By: #### 1 ####[place] [address] [facility].[address] Hemoglobin mass conc (Bld) 13.5 g/dL Normal 12.0-15.0 [facility] Comment on above: Performed By: #### 1 ####[facility]3000 [facility].[address] IMMATURE GRANS 0.2 % Normal 0.0-1.0 [facility] Comment on above: Performed By: #### 1 ####[place] [address] [facility].[address] Lymphocytes 0.9 10*3/uL Low 1.2-4.0 [facility] Comment on above: Performed By: #### 1 ####[address] [place] [address], [facility] Lymphocytes/100 leukocytes 5.8 % Low 20.0-45.0 [facility] Comment on above: Performed By: #### 1 ####[facility] MCH 30.3 pg Normal 27.0-33.0 [facility] Comment on above: Performed By: #### 1 ####[facility]3000 [facility].[address] MCHC mass conc (RBC) 33.5 g/dL Normal 32.0-35.0 [facility] Comment on above: Performed By: #### 1 ####[place] [address] [facility].[address] MCV 90.4 fL Normal 82.0-98.0 [facility] Comment on above: Performed By: #### 1 ####[facility]3000 [facility].[address] Monocytes 0.7 10*3/uL Normal 0.1-1.0 [facility] Comment on above: Performed By: #### 1 ####[facility]3000 [facility].[address] MONOS 4.6 % Low 5.0-12.0 [facility] Comment on above: Performed By: #### 1 ####[facility] [place] [address], [facility] Neutrophils 13.6 10*3/uL High 1.6-7.6 [facility] Comment on above: Performed By: #### 1 ####[facility] Neutrophils/100 leukocytes 89.2 % High 40.0-72.0 [facility] Comment on above: Performed By: #### 1 53, ####[facility]3000 [facility].[address] PLAT CNT 94 10*3/uL Low 150-400 [facility] Comment on above: Result Comment: P = 126 Performed By: #### 1 53, ####[facility] WBC (Leukocytes) 15.2 10*3/uL High 4.0-10.6 [facility] Comment on above: Performed By: #### 1 53, ####[facility]3000 [facility].[address] ABS BASOPHILS 0.0 10*3/uL Normal 0.0-0.2 [facility] Comment on above: Performed By: #### 5 102 ####[facility]3000 [facility].[address] ABS IMM GRANS 0.1 10*3/uL Normal 0.0-0.2 [facility] Comment on above: Performed By: #### 5 102 ####[facility] Basophils Auto #/vol (Bld) 0.3 % Normal 0.0-1.0 [facility] Comment on above: Performed By: #### 5 102 ####[facility]3000 [place] [address], [facility] Eosinophils 0.0 10*3/uL Normal 0.0-0.5 [facility] Comment on above: Performed By: #### 102 ####[facility]3000 [place] [address], [facility] Eosinophils/100 leukocytes 0.2 % Normal 0.0-6.0 [facility] Comment on above: Performed By: #### 5 0103 ####[facility] Erythrocyte distribution width Auto Ratio (RBC) 14.3 % Normal 11.5-15.0 [facility] Comment on above: Performed By: #### 5 0103 ####[facility] Erythrocytes (RBC) 3.50 10*6/uL Low 3.80-5.00 [facility] Comment on above: Performed By: #### 5 0103 ####[facility] Erythrocytes (RBC) 0 % Normal 0-0 [facility] Comment on above: Performed By: #### 5 0103 ####[facility] Hematocrit (HCT) 32.5 % Low 36.0-45.0 [facility] Comment on above: Performed By: #### 5 0103 ####[facility] Hemoglobin mass conc (Bld) 10.9 g/dL Low 12.0-15.0 [facility] Comment on above: Performed By: #### 5 0103 ####[facility] IMMATURE GRANS 0.4 % Normal 0.0-1.0 [facility] Comment on above: Performed By: #### 5 0103 ####[facility] Lymphocytes 2.3 10*3/uL Normal 1.2-4.0 [facility] Comment on above: Performed By: #### 5 0103 ####[facility] [place] [address], [facility] Lymphocytes/100 leukocytes 17.6 % Low 20.0-45.0 [facility] Comment on above: Performed By: #### 5 0103 ####[facility] [place] [address], [facility] MCH 31.1 pg Normal 27.0-33.0 [facility] Comment on above: Performed By: #### 5 0103 ####[facility] MCHC mass conc (RBC) 33.5 g/dL Normal 32.0-35.0 [facility] Comment on above: Performed By: #### 5 0103 ####[facility]3000 [facility] [place] [place] [address], [facility] MCV 92.9 fL Normal 82.0-98.0 [facility] Comment on above: Performed By: #### 5 0103 ####[facility] [place] [address], [facility] Monocytes 0.8 10*3/uL Normal 0.1-1.0 [facility] Comment on above: Performed By: #### 5 0103 ####[facility] [place] [address], [facility] MONOS 6.1 % Normal 5.0-12.0 [facility] Comment on above: Performed By: #### 5 0103 ####[facility] [place] [address], [facility] Neutrophils 9.7 10*3/uL High 1.6-7.6 [facility] Comment on above: Performed By: #### 5 0103 ####[facility] [place] [address], [facility] Neutrophils/100 leukocytes 75.4 % High 40.0-72.0 [facility] Comment on above: Performed By: #### 5 0103 ####[facility] PLAT CNT 126 10*3/uL Low 150-400 [facility] Comment on above: Performed By: #### 5 0103 ####[facility] WBC (Leukocytes) 12.9 10*3/uL High 4.0-10.6 [facility] Comment on above: Performed By: #### 5 0103 ####[facility] COMP METABOLIC PANELon 08-11 Alanine aminotransferase (ALT) 8 U/L Normal 7-52 [facility] Comment on above: Performed By: #### 0 0121, [id number] ####[facility] Albumin 2.6 g/dL Low 3.5-5.7 [facility] Comment on above: Performed By: #### 0 0121, [id number] ####[facility] ALKALINE PHOSPH 34 IU/L Normal 34-104 [facility] Comment on above: Performed By: #### 0 0121, [id number] ####[facility] Aspartate aminotransferase (AST) 11 U/L Low 13-39 [facility] Comment on above: Performed By: #### 0 0121, [id number] ####[facility] Bilirubin (total) 0.7 mg/dL Normal 0.3-1.0 [facility] Comment on above: Performed By: #### 0 0121, [id number] ####[facility] [place] [address], [facility] Calcium 7.4 mg/dL Low 8.6-10.3 [facility] Comment on above: Performed By: #### 0 0121, 92511 ####[facility] [place] [address], [place] Chloride 112 mmol/L High 98-107 [facility] Comment on above: Performed By: #### 0 0121, 20424 ####[facility] [place] [address], [place] CO2 22 mmol/L Normal 21-31 [facility] Comment on above: Performed By: #### 0 0121, 68746 ####[facility] [place] [address], [facility] Creatinine 0.83 mg/dL Normal 0.60-1.20 [facility] Comment on above: Performed By: #### 0 0121, 58374 ####[facility] [facility] [place] [address], [facility] eGFR (black) mL/min/{1.73_m2} Normal >60 [facility] [facility] Comment on above: Result Comment: Calc ulation may not be valid for patients over 70 years Performed By: #### 0 0121, [id number] ####[facility] [facility] [place] [address], [facility] eGFR (non-black) mL/min/{1.73_m2} Normal >60 [facility] Comment on above: Result Comment: Calc ulation may not be valid for patients over 70 years Performed By: #### 0 0121, [id number] ####[facility] [place] [address], [place] Glucose mass conc 138 mg/dL High 70-100 [facility] Comment on above: Performed By: #### 0 0121, 16547 ####[facility] [place] [place] [address], [facility] Potassium molar conc 4.0 mmol/L Normal 3.5-5.1 [facility] Comment on above: Performed By: #### 0 0121, [id number] ####[facility] [facility] [place] [address], [facility] Protein 4.1 g/dL Low 6.0-8.3 [facility] Comment on above: Performed By: #### 0 0121, 45381 ####[facility] [facility] [place] [place] [address], [facility] Sodium 138 mmol/L Normal 136-145 [facility] Comment on above: Performed By: #### 0 0121, 07335 ####[facility] [facility] [place] [place] [address], [facility] Urea nitrogen 16 mg/dL Normal 7-25 [facility] Comment on above: Performed By: #### 0 0121, [id number] ####[facility] [facility].[address] Consultationon 08-11-2017 Consultation MR#: [id number] Pt. Name: Judith Khan Date of Service: 08/10/2017 Room #: SIC [id number] Birthdate: 1945 Referring Physician: CONSULTATIONREASON FOR CONSULTATION: Critical care management status post splenectomy,ventilatory management.HISTORY OF PRESENT ILLNESS: Ms. Judith Khan is a 72-year-old female witha history of hypertension, hyperlipidemia, diabetes, and COPD, whopresented as a transfer from [place], [place] with a traumatic brain injury.The patient reportedly fell, as reported by her daughter, who lives withher, on 07/22/2017, in her home. She had [...] days. She presented to the hospital in [place], [place], and aCT abdomen and pelvis was obtained that demonstrated a grade 5 spleniclaceration. The patient was initially hemodynamically stable per reportsfrom the outside facility, however she became markedly hypotensive,unresponsive to multiple fluid boluses, and was transferred to [facility] as a level 1 trauma. When she arrived in the[facility], she had received 3 L of crystalloid and 4 units of blood atthat time and only transiently responded to this fluid resuscitation. Shewas hypotensive in the [facility] and an emergent right femoral Cordis wasplaced for continued resuscitation and the patient was taken to theoperating room for emergent exploratory laparotomy, splenectomy for trauma.The patient presents in Intensive Care Unit postoperatively. She isintubated and sedated. She underwent exploratory laparotomy andsplenectomy with the Trauma Surgery Team, Dr. Olson. She received a totalof 500 albumin, 200 [...] chronic obstructivepulmonary disease, not on home O2; vyn-epktzpc-wrqmnxazl diabetes mellitus,type 2; anxiety.PAST SURGICAL HISTORY: Hysterectomy, [...] outside facilityreviewed with attending surgeon in [facility] with evidence of rupturedspleen with blood products throughout the abdomen, left upper quadrant,right upper quadrant, and into the pelvis. No other traumatic injury isidentified.ASSESSMENT AND PLAN: Ms. Judith Zontini is a 72-year-old female withhistory of hypertension, hyperlipidemia, chronic obstructive pulmonarydisease, and diabetes mellitus, who presents to the Intensive Care Unitafter emergent exploratory laparotomy and splenectomy for traumatic injury,fall from standing approximately 2 weeks prior.Neurologic: No history of CVA or neurological deficits in past. GCS is 15reported in the [facility], currently GCS is 3T, intubated and sedated.She [...] the setting ofcritical care status.Endocrine: History of ysg-udpqyya-jgpvmrtcp diabetes mellitus, type 2, onhome metformin. We [...] was placed in emergent setting in theTra[facility], this will be removed/replaced within 24 hours [...] with plan of care discussed with attending,Dr. Olson.Electronically Signed by:Alexander Olson M.D. 08/12/2017 05:12 P __Alexander Olson M.D. I personally saw this patient on the day of the encounter, performed thekey portion(s) of the service and participated in the management andconfirm the resident's documentation. Please note there may be anadditional personal documentation from me. Date Dict: 08/11/2017/04:38 A/Pippa Gutierrez Trans: 08/11/2017 02:22 P/peteoDTeresa_JN:[id number] Normal [facility] FRESH FROZEN PLASMA 2 UNITSo n 08-11-2017 PRODUCT CODE 1 E2701 Normal [facility] Comment on above: Order Comment: INR: 1.22 ,PTT: 27.2 at the time of order ;Indication: Activebleeding/invasive procedure with prolonged PT/PTT or INR > 1.6 Performed By: #### 1 53, ####[facility] PRODUCT CODE 2 E2701 Normal [facility] Comment on above: Order Comment: INR: 1.22 ,PTT: 27.2 at the time of order ;Indication: Activebleeding/invasive procedure with prolonged PT/PTT or INR > 1.6 Performed By: #### 1 53, ####[facility] [facility].[address] PRODUCT STATUS 1 PT Normal [facility] Comment on above: Order Comment: INR: 1.22 ,PTT: 27.2 at the time of order ;Indication: Activebleeding/invasive procedure with prolonged PT/PTT or INR > 1.6 Result Comment: Resu lt changed by IF on 08/11/2017 00:27. The previous value was XX.Result changed by IF on 08/12/2017 02:00. The previous value was IS. Performed By: #### 1 53, ####[facility] [facility].[address] PRODUCT STATUS 2 PT Normal [facility] Comment on above: Order Comment: INR: 1.22 ,PTT: 27.2 at the time of order ;Indication: Activebleeding/invasive procedure with prolonged PT/PTT or INR > 1.6 Result Comment: Resu lt changed by IF on 08/11/2017 03:17. The previous value was XM.Result changed by IF on 08/13/2017 02:00. The previous value was IS. Performed By: #### 1 53, ####[facility] UNIT ABO 1 O Normal [facility] Comment on above: Order Comment: INR: 1.22 ,PTT: 27.2 at the time of order ;Indication: Activebleeding/invasive procedure with prolonged PT/PTT or INR > 1.6 Performed By: #### 1 53, ####[facility] UNIT ABO 2 O Normal [facility] Comment on above: Order Comment: INR: 1.22 ,PTT: 27.2 at the time of order ;Indication: Activebleeding/invasive procedure with prolonged PT/PTT or INR > 1.6 Performed By: #### 1 53, ####[facility] UNIT ID 1 [id number] Normal [facility] Comment on above: Order Comment: INR: 1.22 ,PTT: 27.2 at the time of order ;Indication: Activebleeding/invasive procedure with prolonged PT/PTT or INR > 1.6 Performed By: #### 1 53, ####[facility] UNIT ID 2 [id number] Normal [facility] Comment on above: Order Comment: INR: 1.22 ,PTT: 27.2 at the time of order ;Indication: Activebleeding/invasive procedure with prolonged PT/PTT or INR > 1.6 Performed By: #### 1 53, ####[facility] [facility] UNIT RH 1 Positive Normal [facility] Comment on above: Order Comment: INR: 1.22 ,PTT: 27.2 at the time of order ;Indication: Activebleeding/invasive procedure with prolonged PT/PTT or INR > 1.6 Performed By: #### 1 53, ####[facility] [facility].[address] UNIT RH 2 Negative Normal [facility] Comment on above: Order Comment: INR: 1.22 ,PTT: 27.2 at the time of order ;Indication: Activebleeding/invasive procedure with prolonged PT/PTT or INR > 1.6 Performed By: #### 1 53, ####[facility] [place] [address], [facility] HEMATOCRITon 08-11-2017 Hematocrit (HCT) 37.7 % Normal 36.0-45.0 [facility] Comment on above: Order Comment: No: D o not add to previous draw Performed By: #### 1 53, ####[facility] [facility].[address] Hematocrit (HCT) 34.8 % Low 36.0-45.0 [facility] Comment on above: Order Comment: No: D o not add to previous draw Performed By: #### 1 53, ####[facility] [facility].[address] HEMOGLOBINon 08-11-2017 Hemoglobin mass conc (Bld) 12.7 g/dL Normal 12.0-15.0 [facility] Comment on above: Order Comment: No: D o not add to previous drawLAB DRAW NOW - PER CECY MCELROY Performed By: #### 1 53, ####[facility] [facility].[address] Hemoglobin mass conc (Bld) 11.8 g/dL Low 12.0-15.0 [facility] Comment on above: Order Comment: No: D o not add to previous draw Performed By: #### 1 53, ####[facility] [facility].[address] History and Physicalon 08-11 History and Physical MR#: [id number] Pt. Name: Judith Khan Admitted: 08/11/2017 Date of : 1945 Attending Physician: Alexander Olson M.D. Room #: [facility] [id number] Discharge Date: HISTORY AND PHYSICALCHIEF COMPLAINT: Trauma [...] any other blood products. [facility] [...] they were fluctuating while in the [facility],stabilized with fluid.GENERAL: Alert and oriented, no acute [...] exploratory laparotomy.2. Management per SICU.Electronically Signed by:Alexander Olson M.D. 08/13/2017 07:04 P Alexander Olson M.D. I personally saw this patient on the day of the encounter, performed thekey portion(s) of the service and participated in the management andconfirm the resident's documentation. Please note there may be anadditional personal documentation from me. Date Dict: 08/11/2017/12:27 A/SUKHJINDER Delgadoate Trans: 08/11/2017 08:41 A/Izabela_JN:[id number] Normal [facility] LACTATE BLOODon 08-11-2017 Lactate 1.1 mmol/L Normal .5-2.2 [facility] Comment on above: Order Comment: No: D o not add to previous draw Performed By: #### 1 53, ####[facility] [place] [address], [facility] Lactate 1.3 mmol/L Normal .5-2.2 [facility] Comment on above: Performed By: #### 1 53, ####[facility] [place] [address], [facility] LIPASE BLOODon 08-11-2017 Lipase 13 Units/L Normal 11-82 [facility] Comment on above: Performed By: #### 0 0121, [id number] ####[facility] [place] [address], [place] LIVER BATTERYon 08-11-2017 Alanine aminotransferase (ALT) 18 U/L Normal 7-52 [facility] Comment on above: Order Comment: No: D o not add to previous draw Performed By: #### 1 53, ####[facility] [place] [address], [facility] Albumin 2.8 g/dL Low 3.5-5.7 [facility] Comment on above: Order Comment: No: D o not add to previous draw Performed By: #### 1 53, ####[facility] [place] [address], [facility] ALKALINE PHOSPH 36 IU/L Normal 34-104 [facility] Comment on above: Order Comment: No: D o not add to previous draw Performed By: #### 1 53, ####[facility] [place] [address], [place] Aspartate aminotransferase (AST) 30 U/L Normal 13-39 [facility] Comment on above: Order Comment: No: D o not add to previous draw Performed By: #### 1 53, ####[facility] [place] [address], [place] Bilirubin (direct) 0.2 mg/dL Normal 0.0-0.2 [facility] Comment on above: Order Comment: No: D o not add to previous draw Performed By: #### 1 53, ####[facility] [place] [address], [place] Bilirubin (total) 0.9 mg/dL Normal 0.3-1.0 [facility] Comment on above: Order Comment: No: D o not add to previous draw Performed By: #### 1 53, ####[facility] [facility].[address] Protein 4.0 g/dL Low 6.0-8.3 [facility] Comment on above: Order Comment: No: D o not add to previous draw Performed By: #### 1 53, ####[facility] [facility].[address] MAGNESIUM BLOODon 08-11-2017 Magnesium 1.4 mg/dL Low 1.9-2.7 [facility] Comment on above: Order Comment: No: D o not add to previous draw Performed By: #### 1 53, ####[facility] [facility].[address] Operative Reporton 8 Operative Report MR#: [id number] [facility] Room #: SIC [id number] Discharge Date: Birthdate: 1945 OPERATIVE REPORTDATE OF SURGERY: 08/11/2017SURGEON: Alexander Olson M.D.ASSISTANTS: Aldo Villasenor M.D. PhD; ALEXANDER GutierrezREOPERATIVE DIAGNOSES: Traumatic splenic rupture.POSTOPERATIVE DIAGNOSIS: Traumatic splenic rupture.PROCEDURE: Splenectomy for trauma.INDICATION: This is a 72-year-old white [facility], [facility] [...] toextubate within the next [address] Olson was present and scrubbedduring the whole procedure.Reviewed By:Aldo Villasenor MD 08/15/2017 07:37 PElectronically Signed by:Alexander Olson M.D. 08/20/2017 09:18 A Alexander Olson M.D. I was present for the entire procedure. Date Dict: 08/11/2017/06:29 A/Aldo Villasenor MDDate Trans: 08/11/2017 03:54 P/[id number] Normal [facility] PHOSPHORUS BLOODon 8 Phosphate 3.1 mg/dL Normal 2.5-5.0 [facility] Comment on above: Order Comment: No: D o not add to previous draw Performed By: #### 1 53, ####[facility] PLATELET APHERESIS 1 UNITon 08-11-2017 PRODUCT CODE 1 E7006 Normal [facility] Comment on above: Order Comment: Plt c ount at the time of order: 126 ;Indication: Platelet-inhibitingdrug therapy with invasive procedure/bleeding Performed By: #### 1 53, [id number] ####[facility] [place] [address], [facility] PRODUCT STATUS 1 PT Normal [facility] Comment on above: Order Comment: Plt c ount at the time of order: 126 ;Indication: Platelet-inhibitingdrug therapy with invasive procedure/bleeding Result Comment: Resu lt changed by IF on 08/11/2017 00:20. The previous value was XM.Result changed by IF on 08/12/2017 02:00. The previous value was IS. Performed By: #### 1 53, ####[facility] [place] [address], [facility] UNIT ABO 1 O Normal [facility] Comment on above: Order Comment: Plt c ount at the time of order: 126 ;Indication: Platelet-inhibitingdrug therapy with invasive procedure/bleeding Performed By: #### 1 53, ####[facility] [facility].[address] UNIT ID 1 [id number] Normal [facility] Comment on above: Order Comment: Plt c ount at the time of order: 126 ;Indication: Platelet-inhibitingdrug therapy with invasive procedure/bleeding Performed By: #### 1 53, ####[facility] [place] [address], [facility] UNIT RH 1 Positive Normal [facility] Comment on above: Order Comment: Plt c ount at the time of order: 126 ;Indication: Platelet-inhibitingdrug therapy with invasive procedure/bleeding Performed By: #### 1 53, ####[facility] [place] [address], [facility] POC GLUCOSE LABon 08-11-2017 Glucose mass conc 100 mg/dL Normal 70-100 [facility] Comment on above: Performed By: #### 1 53, ####[facility] [place] [address], [facility] PORTABLE ABDOMENon 8 PORTABLE ABDOMEN [facility] [address] [place] [address] Sera ent Name: JUDITH KHAN : 1945Sex: FAge: Race: WhiteMRN: [id number]. Location: EMERPatient Status: IVisit #: [id number] Date: 08/11/2017 12:35:00 AMCompleted Date: 08/11/2017 01:07 AMRequesting Provider: ALEXANDER OLSON Attending Provider: ALEXANDER OLSON Report Copy To: Signs & Symptoms: Intra-op portable abdomenHistory: R/O foreign bodyComments: R/O foreign bodyExam: PORTABLE ABDOMENAccession #: [id number] ===PORTABLE ABDOMEN 08/11/2017 1:07 AM EST SIGNS [...] findings. Electronically signed by:Kristian Nascimento. Transcribed by: [email or web address], User Resident: NICOLETTE TOTHANElectronically Signed by: KRISTIAN NASCIMENTO @ 08/11/2017 12:16 PMI personally read this/these film(s) with this resident Normal [facility] Comment on above: Order Comment: R/O f oreign body PORTABLE CHEST 1 VIEWon PORTABLE CHEST 1 VIEW [facility] [address] [place] [address] Sera ent Name: JUDITH KHAN : 1945Sex: FAge: Race: WhiteMRN: [id number]. Location: [id number] Status: IVisit #: [id number] Date: 08/11/2017 1:45:00 AMCompleted Date: 08/11/2017 02:13 AMRequesting Provider: CARMENZA WINTER Attending Provider: ALEXANDER OLSON Report Copy To: Signs & Symptoms: Post OPHistory: Patient history not availableComments: Check E.T. Position, also to chest OGT placementExam: PORTABLE CHEST 1 VIEWAccession #: [id number] ===PORTABLE CHEST 1 VIEW 08/11/2017 2:13 AM [...] findings. Electronically signed by:Kristian Nascimento. Transcribed by: [email or web address], User Resident: NICOLETTE TOTHANElectronically Signed by: KRISTIAN NASCIMENTO @ 08/11/2017 12:17 PMI personally read this/these film(s) with this resident Normal [facility] Comment on above: Order Comment: Check E.T. Position, also to chest OGT placement PROTHROMBIN TIMEon 8 INR Coag RelTime (PPP) 1.44 {INR} High 0.91-1.16 [facility] Comment on above: Order Comment: No: [...] OF ACTION, CLINICALEFFECTIVENESS, AND OPTIMAL THERAPEUTIC RANGE. [id number];108:231S-246S. Performed By: #### 1 53, ####[facility] Prothrombin time (PT) Coag time (PPP) 17.7 s High 12.3-14.8 [facility] Comment on above: Order Comment: No: D o not add to previous draw Result Comment: ALL RESULTS MUST BE INTERPRETED WITH RESPECT TO BLOOD DRAWING ARTIFACTOR DILUTION ERROR OF ANTICOAGULANT AT THE TIME OF SAMPLING. Performed By: #### 1 53, ####[facility] [facility].[address] INR Coag RelTime (PPP) 1.22 {INR} High 0.91-1.16 [facility] Comment on above: Result Comment: ACCC P RECOMMENDED INR FOR WARFARIN THERAPY CONDITION INRPROPHYLAXIS OF VENOUS THROMBOSIS 2-3(HIGH-RISK SURGERY)TREATMENT OF VENOUS THROMBOSIS 2-3TREATMENT OF PULMONARY EMBOLISM 2-3PREVENTION OF SYSTEMIC EMBOLISM: 2-3 ACUTE MYOCARDIAL INFARCTION TISSUE HEART VALVES VALVULAR HEART DISEASE ATRIAL FIBRILLATION RECURRENT SYSTEMIC EMBOLISMMECHANICAL HEART VALVE 2.5-3.5 FROM: ORAL ANTICOAGULANTS. MECHANISM OF ACTION, CLINICALEFFECTIVENESS, AND OPTIMAL THERAPEUTIC RANGE. [id number];108:231S-246S. Performed By: #### 5 6101, 39814 ####[facility] [place] [address], [place] Prothrombin time (PT) Coag time (PPP) 15.5 s High 12.3-14.8 [facility] Comment on above: Result Comment: ALL RESULTS MUST BE INTERPRETED WITH RESPECT TO BLOOD DRAWING ARTIFACTOR DILUTION ERROR OF ANTICOAGULANT AT THE TIME OF SAMPLING. Performed By: #### 5 6101, 55426 ####[facility] [place] [address], [place] RBC'S 4 UNITSon 08-11-2017 CROSSMATCH INTERP 1 COMP Normal [facility] Comment on above: Performed By: #### 8 6004 ####[facility] [place] [address], [place] CROSSMATCH INTERP 2 COMP Normal [facility] Comment on above: Performed By: #### 8 6004 ####[facility] [place] [address], [place] CROSSMATCH INTERP 3 COMP Normal [facility] Comment on above: Performed By: #### 8 6004 ####[facility] [place] [address], [place] CROSSMATCH INTERP 4 COMP Normal [facility] Comment on above: Performed By: #### 8 6004 ####[facility] [place] [address], [place] PRODUCT CODE 1 E0686 Normal [facility] Comment on above: Performed By: #### 8 6004 ####[facility] [place] [address], [place] PRODUCT CODE 2 E0336 Normal [facility] Comment on above: Performed By: #### 8 6004 ####[facility] PRODUCT CODE 3 E0336 Normal [facility] Comment on above: Performed By: #### 8 6004 ####[facility] [place] [address].[place] [address], [facility] PRODUCT CODE 4 E0336 Normal [facility] Comment on above: Performed By: #### 8 6004 ####[address] PRODUCT STATUS 1 RE Normal [facility] Comment on above: Result Comment: Resu lt changed by IF on 08/11/2017 00:26. The previous value was XM.Result changed by IF on 08/11/2017 01:42. The previous value was IS.Result changed by IF on 08/14/2017 07:03. The previous value was XM. Performed By: #### 8 6004 ####[address] PRODUCT STATUS 2 PT Normal [facility] Comment on above: Result Comment: Resu lt changed by IF on 08/11/2017 00:26. The previous value was XM.Result changed by IF on 08/12/2017 02:00. The previous value was IS. Performed By: #### 8 6004 ####[address] PRODUCT STATUS 3 RE Normal [facility] Comment on above: Result Comment: Resu lt changed by IF on 08/12/2017 15:16. The previous value was XX. Performed By: #### 8 6004 ####[address] [place] [address], [facility] PRODUCT STATUS 4 RE Normal [facility] Comment on above: Result Comment: Resu lt changed by IF on 08/11/2017 00:26. The previous value was XM.Result changed by IF on 08/11/2017 01:42. The previous value was IS.Result changed by IF on 08/14/2017 07:03. The previous value was XM. Performed By: #### 8 6004 ####[facility] [place] [address], [facility] UNIT ABO 1 O Normal [facility] Comment on above: Performed By: #### 8 6004 ####[facility] [place] [address], [facility] UNIT ABO 2 O Normal [facility] Comment on above: Performed By: #### 8 6004 ####[facility] [place] [address], [facility] UNIT ABO 3 O Normal [facility] Comment on above: Performed By: #### 8 6004 ####[facility] [place] [address], [facility] UNIT ABO 4 O Normal [facility] Comment on above: Performed By: #### 8 6004 ####[facility] [place] [address], [facility] UNIT ID 1 [id number] Normal [facility] Comment on above: Performed By: #### [id number] ####[facility] [place] [address], [facility] UNIT ID 2 [id number] Normal [facility] Comment on above: Performed By: #### 8 [id number] ####[facility] [place] [address], [facility] UNIT ID 3 [id number] Normal [facility] Comment on above: Performed By: #### 8 [id number] ####[facility] [place] [address], [facility] UNIT ID 4 [id number] Normal [facility] Comment on above: Performed By: #### 8 [id number] ####[facility] [place] [address], [place] UNIT RH 1 Negative Normal [facility] Comment on above: Performed By: #### 8 [id number] ####[facility] [place] [address], [place] UNIT RH 2 Negative Normal [facility] Comment on above: Performed By: #### 8 [id number] ####[facility] [place] [address], [place] UNIT RH 3 Negative Normal [facility] Comment on above: Performed By: #### 8 [id number] ####[facility] [place] [address], [place] UNIT RH 4 Negative Normal [facility] Comment on above: Performed By: #### 8 [id number] ####[facility] [place] [address], [facility] SERUM TESTon 08-11 TEST Negative Normal [facility] Comment on above: Performed By: #### 4 [id number] ####[facility] [place] [address], [facility] TYPE AND CROSSMATCHon 2017 ABO INTERPRETATION O Normal [facility] Comment on above: Performed By: #### 6 [id number] ####[facility] [place] [address], [place] ANTIBODY SCREEN Negative Normal [facility] Comment on above: Performed By: #### 6 2594 ####[facility] [place] [address], [place] RH INTERPRETATION Negative Normal [facility] Comment on above: Performed By: #### 6 [id number] ####[facility] [place] [address], [place] Vital Signs Date Time Vital Sign Value Performing Clinician Facility 06-23-2023 14:00-0500 [facility] 14:00-0500 Promise to Return [facility] 06-23-2023 13:00-0500 Hourly Rounding [facility] 06-23-2023 13:00-0500 Promise to Return [facility] 06-23-2023 12:00-0500 Hourly Rounding [facility] 06-23-2023 12:00-0500 Promise to Return [facility] 06-23-2023 11:22-0500 Heart rate 107 /min [facility] 06-23-2023 11:22-0500 SaO2% (BldA) [Mass fraction] 94 % [facility] 06-23-2023 11:21-0500 Diastolic blood pressure 82 mm[Hg] [facility] 06-23-2023 11:21-0500 Mean blood pressure 108 mm[Hg] [facility] 06-23-2023 11:21-0500 Systolic blood pressure 162 mm[Hg] [facility] 06-23-2023 11:20-0500 Body temperature 97.7 [degF] [facility] 06-23-2023 08:20-0500 SaO2% (BldA) [Mass fraction] 98 % [facility] 06-23-2023 07:19-0500 Heart rate 84 /min [facility] 06-23-2023 07:19-0500 SaO2% (BldA) [Mass fraction] 100 % [facility] 06-23-2023 07:18-0500 Body temperature 97.52 [degF] [facility] 06-23-2023 07:18-0500 Diastolic blood pressure 81 mm[Hg] [facility] 06-23-2023 07:18-0500 Mean blood pressure 99 mm[Hg] [facility] 06-23-2023 07:18-0500 Systolic blood pressure 137 mm[Hg] [facility] 06-23-2023 06:17-0500 Blood Pressure Location [facility] 06-23-2023 06:17-0500 Body temperature 97.52 [degF] [facility] 06-23-2023 06:17-0500 Diastolic blood pressure 74 mm[Hg] [facility] 06-23-2023 06:17-0500 Heart rate 99 /min [facility] 06-23-2023 06:17-0500 Respiratory rate 17 /min [facility] 06-23-2023 06:17-0500 Systolic blood pressure 159 mm[Hg] [facility] 06-23-2023 05:01-0500 Heart rate 102 /min [facility] 06-23-2023 05:01-0500 Mean blood pressure 98 mm[Hg] [facility] 06-23-2023 05:01-0500 Respiratory rate 19 /min [facility] 06-23-2023 04:30-0500 Mean blood pressure 95 mm[Hg] [facility] 06-23-2023 04:30-0500 Respiratory rate 16 /min [facility] 06-23-2023 03:00-0500 Mean blood pressure 121 mm[Hg] [facility] 06-23-2023 03:00-0500 Respiratory rate 20 /min [facility] 06-23-2023 02:43-0500 Respiratory rate 18 /min [facility] 06-23-2023 02:30-0500 Respiratory rate 18 /min [facility] 06-23-2023 01:40-0500 gluc 96 mg/dL Mela [facility] 06-23-2023 01:40-0500 gluc Mela [facility] 06-23-2023 01:38-0500 gluc 96 mg/dL Mela [facility] 06-23-2023 01:38-0500 gluc Mela [facility] 06-23-2023 01:37-0500 Heart rate 117 /min [facility] 05-15-2023 13:50-0500 Body height 167.64 cm MD Rodrick Sams Work Phone: [facility] 05-15-2023 13:50-0500 Body weight 57.15 kg MD Rodrick Sams Work Phone: [facility] Encounters Encounter Date Encounter Type Care Provider Facility Start: 07-16-2023 End: 07-16-2023 Emergency department patient visit Demarco Beaver Facility:[facility] Start: 07-06-2023 End: 07-06-2023 ambulatory COOPER ROWLEY [facility] Start: 06-23-2023 End: 06-23-2023 ambulatory Mela Espinal Facility:[facility] Start: 06-23-2023 End: 06-23-2023 Observation [facility] Start: 05-15-2023 End: 05-15-2023 ambulatory Cathie Reid Facility:[facility] Start: 05-15-2023 End: 05-15-2023 ambulatory MD Rodrick Sams Work Phone: [facility] Work Phone: Start: 05-15-2023 End: 05-15-2023 Patient encounter procedure MD Rodrick Sams Work Phone: [facility] [place] Work Phone: Start: 01-12-2023 End: 01-12-2023 ambulatory COOPER ROWLEY [facility] Start: 10-09-2022 End: 10-10-[address] RODRICK SAMS . Facility: Start: 07-19-2022 End: 07-19-2022 ambulatory STEPHENIE PRECIADO [facility] Start: 05-24-2022 End: 05-25-[address] RODRICK SAMS . Facility: Start: 05-08-2022 End: 05-10-2022 Evaluation and management of inpatient DR RODRICK SAMS . Facility: Start: 03-29-2022 End: 03-29-[address] MISAEL PEDRAZA . Facility: Start: 12-27-2021 End: 12-28-[address] RODRICK SAMS . Facility: Start: 08-13-2017 End: 08-14-2017 Ambulatory DEFAULT PHYSICIAN Facility:[facility] Start: 08-11-2017 End: 08-15-2017 Evaluation and management of inpatient REFERRED SELF Facility:[facility] Procedures Date Procedure Procedure Detail Performing Clinician Start: 05-15-2023 MRI of head MD Rodrick Sams Work Phone: Start: 03-04-2020 Removal of stent Magda Espinal Start: 08-14-2017 INTRODUCTION OF SERUM/TOX/VACCINE INTO MUSCLE, PERC APPROACH SUPA Irving HEIDBob Start: 08-11-2017 MEASURE OF ARTERIAL SATURATION, PERIPHERAL, PERC APPROACH SUPA Irving HEIDT Start: 08-11-2017 RESECTION OF SPLEEN, OPEN APPROACH ATHANASIOS BRAMOS Start: 08-11-2017 TRANSFUSE NONAUT FRO KRYSTYNA PLASMA IN PERIPH VEIN, PERC SUPA Irving HEIDT Start: 08-11-2017 TRANSFUSE NONAUT HARRY TELETS IN PERIPH VEIN, PERC SUPA Irving HEIDT Start: 08-11-2017 TRANSFUSE NONAUT RED BLOOD CELLS IN PERIPH VEIN, [facility] SUPA Irving HEIDT Appendectomy Mela Gennari Cataract (morphologi c abnormality) Mela Gennari Hysterectomy Mela Gennari Splenectomy Mela Gennari Payers Date Payer Category Payer Medicare [id number] 2023 Self-pay [id number] 1958 Medicare [id number] 1958 Unknown [id number] 1945 Unknown [id number] 2.16.84 [id number] 1945 Unknown [id number] 2.16.84 [id number] 1945 Unknown [id number] 2.16.84 [id number] 1945 Unknown [id number] 2.16.84 [id number] 1945 Unknown [id number] 2.16.84 [id number] 1945 Unknown [id number] 2.16.8 [id number] 1945 Unknown [id number] 2.16.8 [id number] Medicare [id number] Unknown Unknown [id number] 2.16.8 [id number] Social History Date Type Detail Facility Tobacco smoking stat [facility] Unknown if ever smoked [facility] Work Phone: Start: 1945 Sex Assigned At Female [facility] Start: 03-04-2020 Tobacco smoking status Ex-smoker (fi nding) [facility] Sex Assigned At Female [facility] Functional Status Date Assessment Result Facility 06-23-2023 Functional Status N/A [facility] 06-23-2023 Functional Status [facility] Clinical Notes 08-04-2020 to 07-08-2023 Note Date & Type Note Facility 07-08-2023 Note Admission and Discha rge Information Admitting Physician - Kylie HERRERA, Mela Consulting Physician - Ramiro Louise MD Admitting Diagnoses: Discharge Diagnoses 1. Right sided weakness, 06/23/2023 2. Hypoxia, 06/23/2023 3. Urinary tract infection, 06/23/2023 4. Elevated troponin, 06/23/2023 5. Hypertension, 06/23/2023 6. High cholesterol, 06/23/2023 7. Parkinsons, 06/23/2023 Potential stroke, 06/23/2023 Procedure History Removal of stent (03/04/2020), Appendectomy, Cataract, Hysterectomy, Splenectomy. Hospital Course Significant Findings see HP Physical Exam General: alert, no acute distress Skin: warm, dry Head: no trauma, normocephalic Neck: Trachea midline, no adenopathy, no tenderness Eye: normal conjunctiva, sclera clear ENMT: TM's clear, oral mucosa moist, no pharyngeal erythema or exudate Cardiovascular: regular rate and rhythm, normal peripheral perfusion Respiratory: Lungs CTA, respirations non labored Chest wall: no deformity. Gastrointestinal: soft, non distended, no tenderness, no guarding. Back: No tenderness, Normal ROM, Normal alignment. Extremities: no deformity, no trauma Neurological: oriented x 4, LOC appropriate for age, CN II-XII intact, motor strength equal & normal bilaterally, sensation equal & normal bilaterally, speech normal Psychiatric: cooperative, affect appropriate for age, normal judgement, normal psychiatric thoughts. Tests Performed CT Head or Brain w/o Contrast XR Chest Single View Discharge Plan Patient Discharge Condition stable Discharge Disposition Discharge To, Anticipated II - Home with responsible caregiver Discharged to - Home independently home Discharge Diet Discharge Diet(s): Low Sodium- 2000 mg (06/23/23 16:32:00) Discharge Medication List Prescriptions Cipro 500 mg Tab, See Instructions Home alprazolam 1 mg Tab, 1 mg= 1 tab(s), Oral, PRN amLODIPine 10 mg Tab, 10 mg= 1 tab(s), Oral, Daily aspirin 81 mg oral tablet, 81 mg= 1 tab(s), Oral, Daily Daily Multiple for Women 50+ oral tablet, 1 tab(s), Oral, Daily hydrochlorothiazide-lisinopril 25 mg-20 mg Tab, 2 tab(s), Oral, Daily Misc Medication potassium chloride 20 mEq ER Tab, 40 mEq= 2 tab(s), Oral, Daily Pravachol 20 mg Tab, 20 mg= 1 tab(s), Oral, Daily Follow-up With When Contact Information Dani HERRERA, JOANNA Kauffman Within [address] [facility] [place] [address] [place] [address]- Additional Instructions: Patient Education Weakness, Lgrx-le-Reon Urinary Tract Infection, Adult [facility] Comment on above: Result Comment: Elec tronically Signed By: MATTHEW HERRERA, Haile\.br\Date and Time Signed: 07/08/23 16:24 EST 07-06-2023 Note Hypertension is stab le and well controlled Continue all meds as prescribed- norvasc, lisinopril- hydrochlorothiazide, metoprolol [facility] 07-06-2023 Note Hiatal hernia with c ompression on Lt atrium noted on TTE Referral to general surgery ordered [facility] 07-06-2023 Note UTP CARDIOLOGY PROGR ESS NOTE HPI: Judith Khan is a 78 y.o. female here for review echocardiogram Patient here for 6 mo follow up fatigue, hypertension, and hyperlipidemia. Metoprolol was put on hold at last apt in Jan 2023 to see if fatigue improved. A few weeks later she was admitted to [facility] for chest pain. Had another echo in May 2023, which showed hiatal hernia. Daughter states was admitted to [facility] recently for TIA symptoms and daughter states she was treated for UTI. She's still not taking metoprolol and feels less tired without it. She denies chest pain, SOB, lightheadedness/syncope, and palpitations. Review of Systems Constitutional: Positive for malaise/fatigue (improving). Musculoskeletal: Positive for arthritis, back pain and joint pain. Neurological: Positive for tremors. All other systems reviewed and are negative. Visit Vitals BP 140/78 (BP Location: Left arm, Patient Position: Sitting) Pulse 97 Ht 1.676 m (5' 6 ) Wt 54 kg (119 lb) SpO2 92% BMI 19.21 kg/m??? Smoking Status Former BSA 1.59 m??? Allergies Allergen Reactions Sulfa (Sulfonamide Antibiotics) Anaphylaxis Medications: Current Outpatient Medications on File Prior to Visit Medication Sig Dispense Refill ALPRAZolam (Xanax) 1 mg tablet in the morning. amLODIPine (Norvasc) 5 mg tablet TAKE 1 TABLET BY MOUTH ONCE A DAY DIRECTED 90 tablet 3 aspirin 81 mg EC tablet Take 81 mg by mouth in the morning. cholecalciferol (Vitamin D-3) 50 MCG (2000 UT) tablet Take 2,000 Units by mouth in the morning. Klor-Con M20 20 mEq ER tablet Take 20 mEq by mouth in the morning and at bedtime. lisinopriL-hydrochlorothiazide 20-25 mg tablet Take 1 tablet by mouth in the morning. pravastatin (Pravachol) 20 mg tablet Take 20 mg by mouth at bedtime. rOPINIRole (Requip) 0.5 mg tablet every 8 (eight) hours. carbidopa-levodopa (Sinemet) 25-100 mg tablet in the morning. isosorbide mononitrate ER (Imdur) 60 mg 24 hr tablet Take 60 mg by mouth in the morning. metoprolol tartrate (Lopressor) 100 mg tablet Take 50 mg by mouth in the morning and at bedtime. [DISCONTINUED] amLODIPine (Norvasc) 5 mg tablet Take 1 tablet (5 mg) by mouth once daily as directed. 90 tablet 3 No current facility-administered medications on file prior [...] Effort: Pulmonary effort is normal. Breath sounds: Normal breath sounds. Abdominal: General: Bowel sounds are normal. Palpations: Abdomen is soft. Musculoskeletal: General: Normal range of motion. Cervical back: Normal range of motion. Right lower leg: No edema. Left lower leg: No edema. Skin: General: Skin is warm and dry. Capillary Refill: Capillary refill takes less than 2 seconds. Neurological: General: essential tremor, No focal deficit present. Mental Status: She is alert and oriented to person, place, and time. Psychiatric: Mood and Affect: Mood normal. Behavior: Behavior normal. Thought Content: Thought content normal. Judgment: Judgment normal. Labs: Lab Results CBC normal, renal function and liver function normal 02/08/23 02/08/23 Range/Units 06:40 08:49 WBC 8.2 (4.0-11.0) 10^3/uL RBC 4.60 (4.20-5.40) 10^6/uL Hgb 14.3 (12.0-16.0) g/dL Hct 42.9 (36.0-48.0) % MCV 93.3 (81.0-99.0) fL MCH 31.1 (26.7-34.0) pg MCHC 33.3 (29.9-35.2) g/dL RDW 14.3 (11.0-15.0) % Plt Count 355 (150-450) 10^3/uL Emergency Department [id number] [facility] Patient name: JUDITH KHAN MPV 11.2 (9.5-13.5) fL Neut % (Auto) 22.9 L (43.0-75.0) % Lymph % (Auto) 55.8 (20.5-60.0) % [place] % (Auto) 13.5 H (1.7-12.0) % Eos % (Auto) 6.4 (0.9-7.0) % Baso % (Auto) 1.3 (0.2-2.0) % Neut # (Auto) 1.9 (1.4-6.5) 10^3/uL Lymph # (Auto) 4.6 H (1.2-3.8) 10^3/uL [place] # (Auto) 1.1 H (0.3-0.8) 10^3/uL Eos # (Auto) 0.5 (0.0-0.7) 10^3/uL Baso # (Auto) 0.1 (0.0-0.1) 10^3/uL Abs Immat Gran (auto) 0.01 (0.00-0.03) 10^3/uL Imm/Tot Granulo (auto) 0.1 (0.0-0.5) % PT 9.8 (9.0-11.6) sec INR <0.93 APTT 29.9 (22.3-36.2) sec D-Dimer 0.84 H* (<=0.59) mg/L FEU Sodium 140 (136-145) mmol/L Potassium 3.7 (3.5-5.1) mmol/L Chloride 102 (98-107) mmol/L Carbon Dioxide 28.9 (21.0-32.0) mmol/L Anion Gap 12.8 BUN 17.0 (7.0-18.0) mg/dL Creatinine 0.73 (0.55-1.02) mg/dL Est GFR ( Amer) >60 (>=60) Est (more content not included)... [facility] 07-06-2023 Note Patient here for 6 m o follow up fatigue, hypertension, and hyperlipidemia. Metoprolol was put on hold at last apt in Jan 2023 to see if fatigue improved. A few weeks later she was admitted to [facility] for chest pain. Had another echo in May 2023, which showed hiatal hernia. Daughter states was admitted to [facility] recently for TIA symptoms and daughter states she was treated for UTI. She's still not taking metoprolol and feels less tired without it. She denies chest pain, SOB, lightheadedness/syncope, and palpitations. Review of Systems Constitutional: Positive for malaise/fatigue (improving). Musculoskeletal: Positive for arthritis, back pain and joint pain. Neurological: Positive for tremors. All other systems reviewed and are negative. [facility] 06-30-2023 Note Microbiology PROCEDURE: Blood Culture Charcoal [R1] SOURCE: Blood BODY SITE: Arm L COLLECTED DATE/TIME: 06/23/2023 01:59 EST RECEIVED DATE/TIME: 06/23/2023 02:53 EST START DATE/TIME: 06/23/2023 02:53 EST FREE TEXT SOURCE: Thea Stacy, Augie Sidhu M.D., Augie Charlton FINAL REPORTS Final Report [] Verified Date/Time: 06/30/2023 07:00 EST No growth at 7 days. Performing Locations R1: This test was performed at: [facility], [address] [place] [address], [address] [place] [address], [facility] Comment on above: Performed By: #### [id number] ####[facility] [id number] [place] [address] 06-30-2023 Note Microbiology PROCEDURE: Blood Culture Charcoal [R1] SOURCE: Blood BODY SITE: Arm R COLLECTED DATE/TIME: 06/23/2023 02:56 EST RECEIVED DATE/TIME: 06/23/2023 05:50 EST START DATE/TIME: 06/23/2023 05:50 EST FREE TEXT SOURCE: rt nathaniel Sidhu M.D., Augie Sidhu M.D., Augie Charlton FINAL REPORTS Final Report [] Verified Date/Time: 06/30/2023 07:00 EST No growth at 7 days. Performing Locations R1: This test was performed at: [facility], [address] [place] [address], [address] [place] [address], [facility] Comment on above: Performed By: #### [id number] #### [facility] [address] [place] [address] 06-24-2023 Note Chief Complaint weakness Reason for Consultation Right sided weakness History of Present Illness 78-year-old woman with Parkinson's who follows with Dr. Rao and Yamilka Reid in the [facility]. She had a unilateral upper extremity resting tremor for several years but was only diagnosed maybe a year or year and a half ago and has had progression of her symptoms. She is on Sinemet 10-100 mg 3 times daily and ropinirole 0.5 mg 3 times daily. According to her, they had tried to be more aggressive with the medication but it caused a lot of dyskinetic movements. She does not experience any significant nausea. Denies hallucinations. Her right upper extremity is fairly high amplitude and she has some head tremor as well. She says after bad days of tremulousness she can have a sore right arm. She has experienced mild freezing episodes. She feels very slow overall. She also reportedly has right-sided weakness even on a good day, which she has attributed to her Parkinson's. The right side of her face appears mildly droopy as well. To rule out other causes such as stroke, she says she had an open MRI in [place] within the past few months which she is told was unremarkable. Before coming to the hospital she had sat down on the toilet and then found herself unable to get up. It was like her legs would not work. She has the baseline right lower extremity weakness but felt her left was weak as well. It did feel frozen or like she could not initiate movements. No associated pain. No sensory symptoms. She says she freaked out and told someone she needed checked out of the hospital. Review of Systems GEN: No fevers or chills. CV/PULM: No chest pain. No shortness of breath. No palpitations. NEURO: No headaches. No loss of vision. No double vision. No dysphagia. No speech changes. No focal weakness. No sensory loss. Physical Exam Vitals & Measurements T: 36.4 ?C(Oral) TMIN: 36.4 ?C(Oral) TMAX: 37 ?C(Oral) HR: 84(Monitored) RR: 17 BP: 137/81 SpO2: 100% HT: 167.64 cm WT: 55 kg GEN: General appearance normal. Well-kempt. No distress. No visualized deformities or trauma. CARDIO/VASC: Limbs without significant edema and appear well-perfused. PULM: Normal work of breathing. SKIN: Visualized skin is intact and without lesions aside from age-related findings. MS: Affect is normal. Patient is alert and generally oriented. Normal attention. LANG: Speech is fluent and non-dysarthric. EYES: Pupils equal/reactive/consensual. Ocular motility full. No pathologic nystagmus. CN: Facial sensation normal. Hearing acuity normal. Mild right-sided facial droop best seen around the mouth. MOTOR: Muscle bulk normal. Muscle tone seems normal in the upper extremities and may be slightly increased in bilateral lower extremities. Seems mildly weak in a generalized fashion, may be some slight right upper extremity and right lower extremity weakness compared to the left. Moderate to severe resting tremors, right upper extremity predominant, also involving the head and mouth slightly. Temporarily suppressible, and better with posturing. REFLEXES: No pathologic reflexes. SENSORY: Light touch normal. CEREBELLAR: No limb ataxia. Assessment/Plan ASSESSMENT: 78-year-old woman with moderate to severe movement disorder symptoms of Parkinson's disease (cognitively very intact) presents after what I think was a freezing episode. My suspicion for any cerebrovascular syndrome is low. She returned to her baseline shortly after the event and remains at her baseline. At baseline she has some right-sided hemiparesis including the face and I would consider the possibility of a chronic ischemic stroke as a cause, but reportedly she has MRI images in [place] within the past few months that did not show anything of concern. CT of her head here does show multiple subcortical white matter hypodensities of unclear etiology, most likely moderate to severe white matter changes. PLAN: 1. She is refusing the MRI and I think this is okay; I will review her MRI done at an outside facility later 2. Continue the ropinirole 0.5 mg 3 times daily and the Sinemet 10-100 mg 3 times daily. Also continue the home aspirin. 3. Might consider having some apomorphine at home in case this continues to happen to her; I warned her about the potential side effects and she is not enthused, will leave this up to management in clinic 4. Outpatient follow-up with Dr. Rao; no other inpatient recommendations at this time 1. Right sided weakness (R53.1: Weakness) 2. Hypoxia (R09.02: Hypoxemia) 3. Urinary tract infection (N39.0: Urinary tract infection, site not specified) 4. Elevated troponin (R79.89: Other specified abnormal findings of blood chemistry) 5. Hypertension (I10: Essential (primary) hypertension) 6. High cholesterol (E78.00: Pure hypercholesterolemia, unspecified) 7. Parkinsons (G20.A1: Parkinson's disease without dyskinesia, without mention of fluctuations) Problem List/Past Medical History On (more content not included)... [facility] Comment on above: Result Comment: Elec tronically Signed By: Tony Fuentes DO\Date and Time Signed: 06/24/23 09:29 EST 06-23-2023 Hospital Discharge instructions Patient Education 06/23/2023 16:31:59 Weakness, Qqub-hp-Gufu Weakness Weakness is a lack of strength. You may feel weak all over your body (generalized), or you may feel weak in one part of your body (focal). There are many potential causes of weakness. Sometimes, the cause of your weakness may not be known. Some causes of weakness can be serious, so it is important to see your doctor. Follow these instructions at home: Activity Rest as needed. Try to get enough sleep. Most adults need 7 8 hours of sleep each night. Talk to your doctor about how much sleep you need. Do exercises, such as arm curls and leg raises, for 30 minutes at least 2 days a week or as told by your doctor. Think about working with a physical therapist or business trainer to help you get stronger. General instructions Take pjgh-mce-rrorunz and prescription medicines only as told by your doctor. Eat a healthy, well-balanced diet. This includes: ?Proteins to build muscles, such as lean meats and fish. ?Fresh fruits and vegetables. ?Carbohydrates to boost energy, such as whole grains. Drink enough fluid to keep your pee (urine) pale yellow. Keep all follow-up visits. Contact a doctor if: Your weakness does not get better or it gets worse. Your weakness affects your ability to: ?Think clearly. ?Do your normal daily activities. Get help right away if: You have sudden weakness on one side of your face or body. You have chest pain. You have trouble breathing or shortness of breath. You have problems with how you see (vision). You have trouble talking or swallowing. You have trouble standing or walking. You are light-headed or faint. These symptoms may be an emergency. Get help right away. Call 911. Do not wait to see if the symptoms will go away. Do not drive yourself to the hospital. Summary Weakness is a lack of strength. You may feel weak all over your body or just in one part of your body. There are many potential causes of weakness. Sometimes, the cause of your weakness may not be known. Rest as needed, and try to get enough sleep. Most adults need 7 8 hours of sleep each night. Eat a healthy, well-balanced diet. This information is not intended to replace advice given to you by your health care provider. Make sure you discuss any questions you have with your health care provider. Document Revised: 04/30/2022 Document Reviewed: 04/30/2022 [employer] Patient Education 2022 [place]. 06/23/2023 16:31:55 Urinary Tract Infection, Adult Urinary Tract Infection, Adult A urinary tract infection (UTI) is an infection of any part of the urinary tract. The urinary tract includes the kidneys, ureters, bladder, and urethra. These organs make, store, and get rid of urine in the body. An upper UTI affects the ureters and kidneys. A lower UTI affects the bladder and urethra. What are the causes? Most urinary tract infections are caused by bacteria in your genital area around your urethra, where urine leaves your body. These bacteria grow and cause inflammation of your urinary tract. What increases the risk? You are more likely to develop this condition if: You have a urinary catheter that stays in place. You are not able to control when you urinate or have a bowel movement (incontinence). You are female and you: ?Use a spermicide or diaphragm for control. ?Have low estrogen levels. ?Are . You have certain genes that increase your risk. You are sexually active. You take antibiotic medicines. You have a condition that causes your flow of urine to slow down, such as: ?An enlarged prostate, if you are male. ?Blockage in your urethra. ?A kidney stone. ?A nerve condition that affects your bladder control (neurogenic bladder). ?Not getting enough to drink, or not urinating often. You have certain medical conditions, such as: ?Diabetes. ?A weak disease-fighting system (immunesystem). ?Sickle cell disease. ?Gout. ?Spinal cord injury. What are the signs or symptoms? Symptoms of this condition include: Needing to urinate right away (urgency). Frequent urination. This may include small amounts of urine each time you urinate. Pain or burning with urination. Blood in the urine. Urine that smells bad or unusual. Trouble urinating. Cloudy urine. Vaginal discharge, if you are female. Pain in the abdomen or the lower back. You may also have: Vomiting or a decreased appetite. Confusion. Irritability or tiredness. A fever or chills. Diarrhea. The first symptom in older adults may be confusion. In some cases, they may not have any symptoms until the infection has worsened. How is this diagnosed? This condition is diagnosed based on your medical history and a physical exam. You may also have other tests, including: Urine tests. Blood tests. Tests for STIs (sexually transmitted infections). If you have had more than one UTI, a cystoscopy or imaging studies may be done to determine the cause of the infections. How is this treated? Treatment for this condition includes: Antibiotic medicine. Ywnn-bdq-jysikbe medicines to treat discomfort. Drinking enough water to stay hydrated. If you have frequent infections or have other conditions such as a kidney stone, you may need to see a health care provider who specializes in the urinary tract (urologist). In rare cases, urinary tract infections can cause sepsis. Sepsis is a life-threatening condition that occurs when the body responds to an infection. Sepsis is treated in the hospital with IV antibiotics, fluids, and other medicines. Follow these instructions at home: Medicines Take rxwv-fyk-vkaoluu and prescription medicines only as told by your health care provider. If you were prescribed an antibiotic medicine, take it as told by your health care provider. Do not stop using the antibiotic even if you start to feel better. General instructions Make sure you: ?Empty your bladder often and completely. Do not hold urine for long periods of time. ?Empty your bladder after sex. ?Wipe from front to back after urinating or having a bowel movement if you are female. Use each tissue only one time when you wipe. Drink enough fluid to keep your urine pale yellow. Keep all follow-up visits. This is important. Contact a health care provider if: Your symptoms do not get better after 1 2 days. Your symptoms go away and then return. Get help right away if: You have severe pain in your back or your lower abdomen. You have a fever or chills. You have nausea or vomiting. Summary A urinary tract infection (UTI) is an infection of any part of the urinary tract, which includes the kidneys, ureters, bladder, and urethra. Most urinary tract infections are caused by bacteria in your genital area. Treatment for this condition often includes antibiotic medicines. If you were prescribed an antibiotic medicine, take it as told by your health care provider. Do not stop using the antibiotic even if you start to feel better. Keep all follow-up visits. This is important. This information is not intended to replace advice given to you by your health care provider. Make sure you discuss any questions you have with your health care provider. Document Revised: 01/07/2021 Document Reviewed: 01/07/2021 [employer] Patient Education 2022 [place]. Follow Up Care 06/23/2023 01:35:45 With:Dani HERRERARamiro NEU Address: [place] [address] [address]- When:1 to 2 weeks [facility] 06-23-2023 Note Chief Complaint states went to the bathroom and had dificulty getting off of the commode, states felt weak in both legs. suspected stroke per ems, r sided weaknessper ems, LKW 2100. has a hx of parkinsons. bs 96 History of Present Illness 78-year-old female who arrived via squad to the ER as a stroke alert. She reports she had difficulty tonight getting out of bed to go the bathroom. [place] weak all over and just felt like she couldnt move. She lives with her daughter, who got her up to the bathroom, but them apparently she could not get off the toilet. This happened at around 0030. It was reported by EMS that she had some right-sided weakness, although patient reported that both of her legs apparently felt weak. She reported to ED staff that she has chronic right sided weakness at baseline due to her Parkinsons Disease (her right side has always been worse). Last known well was at 2100 last evening. Yesterday her appetite was poor and she did not eat much. No GI symptoms. No other associated neurologic deficits. Denies any urinary symptoms. In terms of workup in the ER, suspicion for acute CVA was low. She was not a candidate for tPA. CT head was negative. Troponin is mildly elevated. Urinalysis does reveal evidence of a urinary tract infection. She has been started on Rocephin. She was also noted to be 88% on room air, and is currently on 2 L per oxygen. Review of Systems Constitutional: no fever, no chills, no sweats, + weakness Skin: no jaundice, no rash, no lesions, no petechiae ENMT: no ear pain, no sore throat, no congestion, no hoarseness Respiratory: no shortness of breath, no cough, no orthopnea, no wheezing Cardiovascular: no chest pain, no palpitations, no edema Gastrointestinal: no nausea, no vomiting, no diarrhea, no abdominal pain Genitourinary: no dysuria, no hematuria Musculoskeletal: no trauma, no joint or muscle pain Neurologic: no headache, no dizziness, + tremor Psychiatric: no depression, no anxiety Heme/Lymph: no bleeding tendency, no bruising tendency Additional ROS info: Except as noted in the above Review of Systems and in the History of Present Illness all other systems have been reviewed and are negative or noncontributory. Scoring Ingram Fall Risk Score: 45 (06/23/23) Physical Exam Vitals & Measurements T: 36.7 ?C(Oral) TMIN: 36.7 ?C(Oral) TMAX: 37 ?C(Oral) HR: 102(Monitored) RR: 19 BP: 120/87 SpO2: 96% HT: 167 cm WT: 56.3 kg General: non-toxic appearing, dry mucosa Skin: warm, dry, no rash Head: AT/NC Neck: Trachea midline, supple Eye: normal conjunctiva, sclera clear Cardiovascular: regular rate and rhythm, S1S2, normal peripheral perfusion Respiratory: Lungs CTA, respirations non labored, breath sounds equal, no w/r/r Chest wall: no deformity Gastrointestinal: soft, NT, ND, no peritoneal signs Extremities: no deformity, no edema Neurological: alert and oriented, LOC appropriate, no confusion, + weakness in RLE and RUE compared to left, + facial droop noted, Significant tremor of RUE, normal speech Psychiatric: cooperative, calm Lab Results WBC: 14.5 E9/L High (06/23/23 01:55:00) RBC: 4.4 E12/L (06/23/23 01:55:00) HGB: 13.7 gm/dL (06/23/23 01:55:00) Hct: 40.9 % (06/23/23 01:55:00) MCV: 92.2 fL (06/23/23 01:55:00) MCH: 30.8 pg (06/23/23 01:55:00) MCHC: 33.4 gm/dL (06/23/23 01:55:00) RDW: 13.6 % (06/23/23 01:55:00) Platelet: 301 E9/L (06/23/23 01:55:00) MPV: 9.9 fL (06/23/23 01:55:00) Neutro Auto: 72.4 % (06/23/23 01:55:00) Lymph Auto: 15.1 % (06/23/23 01:55:00) [place] Auto: 11.3 % (06/23/23 01:55:00) Eos Auto: 0.8 % (06/23/23 01:55:00) Basophil Auto: 0.4 % (06/23/23 01:55:00) Neutro Absolute: 10.5 E9/L High (06/23/23 01:55:00) Lymph Absolute: 2.2 E9/L (06/23/23 01:55:00) [place] Absolute: 1.6 E9/L High (06/23/23 01:55:00) Eos Absolute: 0.1 E9/L (06/23/23 01:55:00) Basophil Absolute: 0.1 E9/L (06/23/23 01:55:00) PT: 11.7 second(s) (06/23/23 01:55:00) INR: 1 (06/23/23 01:55:00) PTT: 30.4 second(s) (06/23/23 01:55:00) Glucose Lvl: 98 mg/dL (06/23/23 01:55:00) BUN: 18 mg/dL (06/23/23 01:55:00) Creatinine: 0.9 mg/dL (06/23/23 01:55:00) eGFR: >60 (06/23/23 01:55:00) BUN/Creat Ratio: 20 (06/23/23 01:55:00) Sodium Lvl: 137 mmol/L (06/23/23 01:55:00) Potassium Lvl: 3.5 mmol/L (06/23/23 01:55:00) Chloride: 103 mmol/L (06/23/23 01:55:00) CO2: 25 mmol/L (06/23/23 01:55:00) AGAP: 13 mEq/L (06/23/23 01:55:00) Calcium Lvl: 10.7 mg/dL (06/23/23 01:55:00) Alk Phos: 80 Int._Unit/L (06/23/23 01:55:00) ALT: 10 Int._Unit/L (06/23/23 01:55:00) AST: 16 Int._Unit/L (06/23/23 01:55:00) Total Protein: 6.5 gm/dL (06/23/23 01:55:00) Albumin Lvl: 4.1 gm/dL (06/23/23 01:55:00) Globulin: 2.4 gm/dL (06/23/23 01:55:00) A/G Ratio: 1.7 (06/23/23 01:55:00) Bili Total: 0.6 mg/dL (06/23/23 01:55:00) Bili Direct: 0.1 mg/dL (06/23/23 01:55:00) Bili Indirect: 0.5 mg/dL (06/23/23 01:55:00) Lactic Acid Lvl: 1.1 mmol/L (06/23/23 01:57:00) Magnesium: 1.8 mg/dL (06/23/23 (more content not included)... [facility] Comment on above: Result Comment: Elec tronically Signed By: Haile CASTRO MD\.br\Date and Time Signed: 06/23/23 15:55 EST 06-23-2023 Note CRM entered the room to discuss dc planning. PCP, DME and insurance discussed. Patient is alert and involved in plan of care. Contact information provided and whiteboard updated. PT rec OPPT, pt is agreeable. Medicare Rights form discussed. Copy provided. Pt's family will transport. Ant dc 06/23 or 06/24. CRM to follow. [facility] Comment on above: Result Comment: Elec tronically Signed By: Haydee Melendez.br\Date and Time Signed: 06/23/23 14:05 EST 06-23-2023 Evaluation + Plan note Extrac ej from: Title:Consult Note Neurology Author:Christi Hamm LPN, Lisa M Date:06/23/23 ASSESSMENT: 78-year-old woman with moderate to severe movement disorder symptoms of Parkinson's disease (cognitively very intact) presents after what I think was a freezing episode. My suspicion for any cerebrovascular syndrome is low. She returned to her baseline shortly after the event and remains at her baseline. At baseline she has some right-sided hemiparesis including the face and I would consider the possibility of a chronic ischemic stroke as a cause, but reportedly she has MRI images in [place] within the past few months that did not show anything of concern. CT of her head here does show multiple subcortical white matter hypodensities of unclear etiology, most likely moderate to severe white matter changes. PLAN: 1. She is refusing the MRI and I think this is okay; I will review her MRI done at an outside facility later 2. Continue the ropinirole 0.5 mg 3 times daily and the Sinemet 10-100 mg 3 times daily. Also continue the home aspirin. 3. Might consider having some apomorphine at home in case this continues to happen to her; I warned her about the potential side effects and she is not enthused, will leave this up to management in clinic 4. Outpatient follow-up with Dr. Rao; no other inpatient recommendations at this time 1. Right sided weakness (R53.1: Weakness) 2. Hypoxia (R09.02: Hypoxemia) 3. Urinary tract infection (N39.0: Urinary tract infection, site not specified) 4. Elevated troponin (R79.89: Other specified abnormal findings of blood chemistry) 5. Hypertension (I10: Essential (primary) hypertension) 6. High cholesterol (E78.00: Pure hypercholesterolemia, unspecified) 7. Parkinsons (G20.A1: Parkinson's disease without dyskinesia, without mention of fluctuations) Extracted from: Title:Admission H & P Author:Mela Espinal MD Date:06/23/23 1. Right sided weakness (R53 .1: Weakness) Chronic issue, likely exacerbated by underlying weakness related to UTI in addition to Parkinsons disease. CT Head negative On home ASA, Statin. Patient reports prior hx TIAs. MRI Brain ordered but patient refuses unless it is an open MRI. Reports she just had an MRI in May at [facility]. Consult Neurology PT Eval ordered 2. Hypoxia (R09.02: Hypoxemia) 88% on RA. Currently comfortable on 2LPM NC. CXR appears hyperinflated, no acute infiltrate noted. 3. Urinary tract infection (N39.0: Urinary tract infection, site not specified) Continue Rocephin started in ED. Urine cx pending. 4. Elevated troponin (R79.89: Other specified abnormal findings of blood chemistry) Mildly elevated. Likely due to demand ischemia in setting of UTI and HTN Cycle cardiac enzymes to r/o ACS 5. Hypertension (I10: Essential (primary) hypertension) Amlodpine, Metoprolol, HCTZ-Lisinopril. 6. High cholesterol (E78.00: Pure hypercholesterolemia, unspecified) Pravastatin 7. Parkinsons (G20.A1: Parkinson's disease without dyskinesia, without mention of fluctuations) Sinemet Addendum by Haile CASTRO MD on June 23, 2023 15:54:36 EST Patient was seen and clear by neurology DC home Outpatient PT She passed speech eval Extracted from: Title:ED Note Author:Thea Stacy, Augie Jennings te:06/23/23 1. Weakness (R53.1: Weakness ) 2. Urinary tract infection (N39.0: Urinary tract infection, site not specified) 3. Elevated troponin (R79.89: Other specified abnormal findings of blood chemistry) Orders: ceftriaxone + Sodium Chloride 0.9% intravenous solution 50 mL, 1,000 mg = 1 EA, IV Piggyback, Once, Stop date 06/23/23 5:00:00 EST, Routine, Start date 06/23/23 5:00:00 EST, 100 mL/hr, Infuse over 30 minute(s), 06/23/23 4:14:00 EST Sodium Chloride 0.9% intravenous solution 1,000 mL, 1,000 mL, IV, 125 mL/hr, Routine, Start date 06/23/23 4:14:00 EST, 8 hour(s), Total volume (mL): 1,000, 56.3 kg, 1.62, m2 Automated Diff Basic Metabolic Panel Blood Culture Charcoal Blood Culture Charcoal CBC w/ Auto Diff [place] Stroke Scale Communication Order Physician to Nursing Continuous Pulse Oximetry CT Head or Brain w/o Contrast ECG 12 Lead Adult ED Cardiac Monitoring ED Physician consult Hospitalist for continued care eGFR Hepatic Function Panel Lactic Acid Magnesium Level NPO Diet Oxygen Therapy PT & PTT Rapid COVID Antigen ([facility] [place]) Routine Capillary Glucose POC Saline Lock Insert Stroke Quality Measures Troponin 0 Hr. Troponin 3 Hr. Troponin 6 Hr. Troponin 9 Hr. TSH With T4fr Reflex UA With Cult Reflex Urine Culture Vital Signs XR Chest Single View Diagnostic Tests Pending * Blood Culture Charcoal 06/23/23 * Blood Culture Charcoal 06/23/23 * Urine Culture 06/23/23 [facility]01-13-2024 NotePT Evaluation done this date. Pt. with 20/24 on AM-PAC this date. She feels she is at her baseline at this time, Recommend she uses her FWW at home as needed. She may benefit from outpatient PT for her Parkinson's. No further acute PT needs.[facility] 01-12-2023 NoteContinue [facility]inUn[facility] Hypertension is elevated in office most likely r/t white coat syndrome States b/p at home is typically 120's/70'[facility] 01-12-2023 NoteWill have pt hold metoprolol and see if her fatigue improves Continue to monitor b/p at home and call office for b/p increase greater than 130/80 or for any concerns.[facility]08-04-2023 Note Patient here for 6 mo follow up SOB, hypertension, and hyperlipidemia. She was restarted on amlodipine in Jul [address] Preciado. Had labs in October 2022. Denies chest pain, SOB, and LE edema. Doing very well. She said Dr. Sams decreased her metoprolol in September to 50mg bid. She thinks this was because she was c/o fatigue. She said it hasn't really changed since the decrease. Review of Systems Constitutional: Positive for malaise/fatigue. Musculoskeletal: Positive for arthritis, back pain and joint pain. Neurological: Positive for excessive daytime sleepiness and tremors. All other systems reviewed and are negative.[facility] 01-12-2023 NoteUTP CARDIOLOGY PROGRESS NOTE HPI: Judith Khan is a 77 y.o. female here for [...] statin RTC 3-6 months or earlier if needed[facility]20[facility] NoteCardiology Clinic Note Chief Complaint: New patient for abnormal stress test HPI: Judith Khan is a 77 y.o. female with a [...] history of COPD (chronic obstructive pulmonary disease) ([facility]), Hyperlipidemia, Hypertension, and Parkinson disease ([facility]). Surgical History She has a past surgical [...] the morning. cholecalciferol (Vitamin D-3) 50 MCG (1999 [place]) tablet Take 2,000 Units by mouth [...] months Radiology: XR chest 1 view Narrative: [facility] Department of Radiology [address] [place] [phone] (more content not included)...[facility]2023 NotePatient here for 2 mo follow up hypertension and hyperlipidemia. Says her SOB has resolved and she feels great. Denies chest pain. Review of Systems Neurological: Positive for tremors. All other systems reviewed and are negative.[facility] 08-04-2020 NotePatient Outreach ([facility]OVAMN) BILLJUDITH ([id number]) 1945 F Date Time Provider Department 08/04/20 EMETERIO OSEGUERA During your visit today, we recorded the following information about you: Allergies As of Date: 08/04/2020 Noted Allergy Reaction ALEVE (NAPROXEN SODIUM) 07/02/2013 16 - Unknown SULFA (SULFONAMIDE ANTIBIOTICS) 07/02/2013 10 - Anaphylaxis Date Reviewed: 03/23/2020 Reviewed by: Ashley Stephens Ma - Fully Assessed Order(s):SARS-COVID VACCINE 1ST DOSE APPT [[id number]] Order #: [id number] FUTURE Prescriptions as of 08/04/2020 Sig: ASPIRIN [...] UTI (urinary tract infecti*03/23/2020 Encounter Status:Closed by ANCELMO NASCIMENTO on 08/09/20[facility] Evaluation noteNo assessment information availableCommunity [facility] Work Phone: Hospital course Narrative No data available for this section [facility] No data available for this section [facility] Summary Purpose Family History No Family History Records FoundNo Family History Records FoundNo Family History Records FoundNo Family History Records FoundNo Family History Records Found No data available for this section No Family History Records FoundNo Family History Records Found Advance Directives No Advanced Directives Records Found Advance Directive Response Recorded Date/ Time Advance Directives No November 12 9 1:56pm Chief Complaint and Reason for Visit Chief Complaint G24.9 R27.0 Additional Source Comments INFORMATION SOURCE (unrecogn ized section and content) DATE CREATED AUTHOR 11/30/2017 [facility] DATE CREATED AUTHOR AUTHOR'S ORGANIZ ATION 06/19/2021 [facility] DATE CREATED AUTHOR AUTHOR'S ORGANIZ ATION 10/13/2022 [facility] DATE CREATED AUTHOR AUTHOR'S ORGANIZ ATION 05/23/2023 [facility] DATE CREATED AUTHOR AUTHOR'S ORGANIZ ATION 07/07/2023 [facility] DATE CREATED AUTHOR AUTHOR'S ORGANIZ ATION 07/19/2023 [facility] Care Teams (unrecognized sec tion and content) Team Status: Active Member Role Status Dates Rodrick Sams MD Primary Care Provider Active Team Status: Inactive Member Role Status Dates Rodrick Sams MD Primary Care Provider Active DIXIE Eng Attending Provider Active Goals (unrecognized section and content) Goals may be documented in a n alternate section No data available for this section FOR RECORDS PERTAINING TO PATIENTS WHO [...] BE BASED ON THE PRIMARY CLINICAL RECORDS. [facility] [employer] [facility]. provides no warranty or guarantee of the accuracy or completeness of information in this document.
--- NOTE | 2023-07-30 12:26 | P.CN_ITS ---
Consult Note: HPI Data of Consult Patient: new to practice Consult date: 07/30/23 Requesting Physician: Rafa Abebe MD Primary Care Provider: Kavon Leary MD Consult Narrative Reason for consult: bilateral arm and leg pain Narrative: 78yof who presents for evaluation. 2 year history of parkinson's, feels that this is causing pain that radiates into her bilateral arms and legs. has difficulty sleeping. takes xanax. currently engaged in physical therapy. denies adverse med side effects. cc:: CC: Rafa Abebe MD Review of Systems ROS Status of ROS 10 or more systems reviewed and unremark able except as noted in history and below PFSH PFS Medical History COPD (chronic obstructive pulmonary disease) ?J44.9 - Chronic obstructive pulmonary disease, unspecified (ICD-10) Parkinsons ?G20 - Parkinson's disease (ICD-10) Hypertension ?I10 - Essential (primary) hypertension (ICD-10) Surgical History History of appendectomy ?Z90.49 - Acquired absence of other specified parts of digestive tract (ICD- 10) H/O: hysterectomy ?Z90.710 - Acquired absence of both cervix and uterus (ICD-10) H/O splenectomy ?Z90.81 - Acquired absence of spleen (ICD-10) Family History Brother Family history of stroke Family history of hypertension Mother Family history of stroke Family history of hypertension Father Family history of cancer Social History Within the past year, how often did you have a drink containing alcohol: never Within the past year, how many standard drinks containing alcohol did you have on a typical day: 1 or 2 Within the past year, how often did you have six or more drinks on one occasion: never Total score: 0 Score interpretation: A score less than 3 is consistent with normal alcohol consumption. Smoking status: Former smoker Non-prescribed substance use: denies use Previous occupational history: retired Highest level of school completed/degree received: high school graduate Are you now , , , , never or living with a partner: In a typical week, how many times do you talk on the telephone with family, friends, or neighbors: 3 or more times per week How often do you get together with friends or relatives: 3 or more times per week How often do you attend restorationism or yarsani services: 4 or more times per year Do you belong to any clubs or organizations such as restorationism groups unions, fraternal or athletic groups, or school groups: no Total score: 2 Score interpretation: A score of greater than or equal to 2 indicates the lowest level of social isolation. Little interest or pleasure in doing things: not at all Feeling down, depressed, or hopeless: not at all Feel stressed/tense/nervous/anxious/difficulty sleeping: not at all Gender Identity: female Meds Home Medications and Allergies Home Medications Medication Instructions Recorded Confirmed Type alprazolam 1 mg tablet 1.5 mg PO BEDTIME 02/08/23 02/09/23 History amlodipine 5 mg tablet 5 mg PO DAILY 02/08/23 02/08/23 History carbidopa 25 mg-levodopa 100 mg 1 tab PO QID 02/08/23 02/09/23 History tablet lisinopril 20 1 tab PO DAILY 02/08/23 02/08/23 History mg-hydrochlorothiazide 25 mg tablet potassium chloride 20 mEq 20 meq PO BID 02/08/23 02/08/23 History tablet,extended release(part/cryst) (Klor-Con M) pravastatin 20 mg tablet 20 mg PO DAILY 02/08/23 02/08/23 History trazodone 50 mg tablet 50 mg PO BEDTIME PRN sleep 02/08/23 02/08/23 History Allergies Allergy/AdvReac Type Severity Reaction Status Date / Time Sulfa (Sulfonamide Allergy Unknown Verified 02/08/23 06:34 Antibiotics) Exam Narrative Exam Narrative: Psych-alert and oriented x 3. Attentive and appropriate, constitutionally normal, displays normal mood and affect per situation.? There are no obvious deficits in memory, reasoning, or intellect.? Skin-no obvious rashes, bruising, erythema noted to the patient's area of pain. Extremities- extremities are warm with minimal edema and palpable pulses. Lumbar-no significant tenderness to palpation noted in the lumbar spine and paraspinal musculature.? Pain is elicited with extension, and lateral rotation of the lumbar spine. Range of motion is slightly diminished with these motions due to pain. Facet loading maneuvers are positive bilaterally and do appear to be concordant with the patient's normal complaints of pain.? Coordination remains intact.? Gait remains non-antalgic. Assessment and Plan Assessment and Plan (1) Lumbago: Qualifiers: Chronicity: chronic Back pain laterality: unspecified Sciatica presence: unspecified whether sciatica present Qualified Code(s): M54.50 - Low back pain, unspecified; G89.29 - Other chronic pain (2) Cervicalgia: (3) Thoracic back pain: Qualifiers: Chronicity: chronic Back pain laterality: unspecified Qualified Code(s): M54.6 - Pain in thoracic spine; G89.29 - Other chronic pain Plan 78yof who presents for evaluation. notes pain in bilateral upper and lower e xtremities. discussed that while parkinson's may contribute to some fatigue symptoms, typically radiating pain into extremities is consequence of spinal changes. no imaging for review, so will have her undergo cervical, thoracic, lumbar XR. she is in agreement. meds reviewed. will have her trial flexeril 10mg bid prn, as well as gabapentin 300mg tid. she expressed understanding. follow up after imaging.
== END 2023-07-30 11:20 | disposition home or self-care (01) ==
LOC: PM 11:21
PROVIDERS: PCP Family Medicine; Visit Provider Anesthesiology
DX: M54.50 Low back pain, unspecified (principal); G89.29 Other chronic pain; M54.6 Pain in thoracic spine
CPT/HCPCS: G0463

== ENCOUNTER 2023-07-31 15:23 | Outpatient (OUT) | payer MEDICARE, OTHER, SELFPAY ==
--- NOTE | 2023-07-31 16:03 | XR_ITS ---
[place] [id number] Patient Name: NANCY KHAN MRN: [id number] date: 1945 Sex: F Assigned Patient Location: [facility] Current Patient Location: Accession/Order Number: [id number] Exam Date: 07/31/2023 15:40 Report Date: 08/01/2023 08:54 At the request of: ROCIO GIEDRACAIN Procedure: XR lumbar spine 6V w bending EXAMINATION: XR thoracic spine 2V, XR cervical spine 5V, XR lumbar spine 6V w bending HISTORY: Thoracic back pain , cervical pain , lumbar pain COMPARISON: No relevant comparison available. FINDINGS: BONES: Moderate right convex curvature of the cervical and upper thoracic spine. Mild left convex curvature of lumbar spine. Reversal normal lordotic curvature involving C2-C5. Moderate degenerative facet arthropathy throughout cervical and lumbar spine. No fracture, listhesis, or change in alignment during flexion and extension. 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 Marked degenerative disc disease throughout lumbar spine PARASPINOUS: Moderate atherosclerotic disease of distal abdominal aorta and iliac arteries. OTHER: Negative. XR/XR lumbar spine 6V w bending IMPRESSION: 1. No appreciable acute abnormality. 2. Moderate marked degenerative changes involving most levels of the cervical and lumbar spine. Minimal degenerative changes of thoracic spine. Electronically authenticated by: RAMIRO SPENCER Date: 08/01/2023 08:54
--- NOTE | 2023-07-31 16:03 | XR_ITS ---
[place] [id number] Patient Name: NANCY KHAN MRN: [facility]:[id number] date: 1945 Sex: F Assigned Patient Location: [facility] Current Patient Location: Accession/Order Number: [id number] Exam Date: 07/31/2023 15:40 Report Date: 08/01/2023 08:54 At the request of: ROCIO WHITTENEDRACAIN Procedure: XR thoracic spine 2V EXAMINATION: XR thoracic spine 2V, XR cervical spine 5V, XR lumbar spine 6V w bending HISTORY: Thoracic back pain , cervical pain , lumbar pain COMPARISON: No relevant comparison available. FINDINGS: BONES: Moderate right convex curvature of the cervical and upper thoracic spine. Mild left convex curvature of lumbar spine. Reversal normal lordotic curvature involving C2-C5. Moderate degenerative facet arthropathy throughout cervical and lumbar spine. No fracture, listhesis, or change in alignment during flexion and extension. 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 Marked degenerative disc disease throughout lumbar spine PARASPINOUS: Moderate atherosclerotic disease of distal abdominal aorta and iliac arteries. OTHER: Negative. XR/XR thoracic spine 2V IMPRESSION: 1. No appreciable acute abnormality. 2. Moderate marked degenerative changes involving most levels of the cervical and lumbar spine. Minimal degenerative changes of thoracic spine. Electronically authenticated by: RAMIRO SPENCER Date: 08/01/2023 08:54
--- NOTE | 2023-07-31 16:03 | XR_ITS ---
[place] [id number] Patient Name: NANCY KHAN MRN: [facility]:[id number] date: 1945 Sex: F Assigned Patient Location: [facility] Current Patient Location: Accession/Order Number: [id number] Exam Date: 07/31/2023 15:40 Report Date: 08/01/2023 08:54 At the request of: ROCIO RODRIGUEZRACAIN Procedure: XR cervical spine 5V EXAMINATION: XR thoracic spine 2V, XR cervical spine 5V, XR lumbar spine 6V w bending HISTORY: Thoracic back pain , cervical pain , lumbar pain COMPARISON: No relevant comparison available. FINDINGS: BONES: Moderate right convex curvature of the cervical and upper thoracic spine. Mild left convex curvature of lumbar spine. Reversal normal lordotic curvature involving C2-C5. Moderate degenerative facet arthropathy throughout cervical and lumbar spine. No fracture, listhesis, or change in alignment during flexion and extension. 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 Marked degenerative disc disease throughout lumbar spine PARASPINOUS: Moderate atherosclerotic disease of distal abdominal aorta and iliac arteries. OTHER: Negative. XR/XR cervical spine 5V IMPRESSION: 1. No appreciable acute abnormality. 2. Moderate marked degenerative changes involving most levels of the cervical and lumbar spine. Minimal degenerative changes of thoracic spine. Electronically authenticated by: RAMIRO SPENCER Date: 08/01/2023 08:54
== END 2023-07-31 15:24 | disposition home or self-care (01) ==
LOC: RAD 15:25
PROVIDERS: PCP Family Medicine; Visit Provider Anesthesiology
DX: M54.2 Cervicalgia (principal); M54.50 Low back pain, unspecified; M54.6 Pain in thoracic spine; M50.30 Other cervical disc degeneration, unspecified cervical region; M51.36 Other intervertebral disc degeneration, lumbar region; M51.34 Other intervertebral disc degeneration, thoracic region
CPT/HCPCS: 72050; 72070; 72114

== ENCOUNTER 2023-08-10 04:34 | Observation (INO) | payer MEDICARE, OTHER, SELFPAY ==
[2023-08-10] VITALS (10 sets, daily range): BP systolic 109–158; BP diastolic 52–76; PULSE 83–100; RESP 12–20; TEMP 36.3–36.6; O2SAT 90–97; BMI 18.7
--- NOTE | 2023-08-10 04:39 | ECG_ITS ---
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
--- OUTSIDE RECORDS SUMMARY | 2023-08-10 04:39 | XMS_ITS | CCD ---
Author Name Unknown Address [address] [place] [address] Organization [facility] Care Team Providers Care Enterprise Architect Manager Name Role Phone SELF, REFERRED Unavailable Unavailable SELF, REFERRED Unavailable Unavailable BRAMOS, ATHANASIOS Unavailable Unavailable SUPA MAY Unavailable Unavailable [place] Unavailable Unavailable BRAMOS, ATHANASIOS Unavailable Unavailable [place] Unavailable Unavailable SUPA MAY Unavailable Unavailable PHYSICIAN, [...] Unavailable MD Rodrick Sams Primary Care Provider [phone] DIXIE Reid Attending Provider [phone] Cathie Reid Attending Unavailable Cathie Reid Admitting Unavailable Rodrick Sams Primary Care Unavailable Rodrick Sams Primary Care Physician [phone] Elian Quigley Unavailable Unavailable COOPER ROWLEY Attending Unavailable STEPHENIE PRECIADO Attending Unavailable COOPER ROWLEY Attending Unavailable Mela Espinal Admitting Unavailable Haile CASTRO Attending Unavailable Greenfield, Ramiro Consulting Unavailable Greenfield, Ramiro Consulting Unavailable Greenfield, Ramiro Consulting Unavailable Greenfield, Ramiro Consulting Unavailable Greenfield, Ramiro Consulting Unavailable Greenfield, Ramiro Consulting Unavailable Greenfield, Ramiro Consulting Unavailable Greenfield, Ramiro Consulting Unavailable Greenfield, Ramiro Consulting Unavailable Demarco Beaver. Attending Unavailable Allergies Allergy Classification Reported Allergen(s) Allergy Type Date of Onset Reaction(s) Facility (4 sources) Sulfonamides (Antibiotic); 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: [SULFA (SULFONAMIDE ANTIBIOTICS)] Drug allergy (disorder) 4 [facility] Repository (1 source) Cephalexin Drug Allergy 2 [facility] Repository (1 source) Unable to Assess Drug allergy (disorder) 3 [facility] Repository (2 sources) Sulfonamides (Antibiotic); 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: [sulfa drugs] Drug allergy Unknown (qualifier value) [facility] Medications Current Medications Medication Drug Class(es) Dates [...] day(s), # 15 cap(s), Refills(s) 0, Pharmacy: [facility]/pharmacy #[id number], 167, cm, 06/23/23 1:52:00 EST, Height/Length Dosing, 56.3, kg, 06/23/23 1:52:00 EST, Weight Dosing Start Date: 06/23/23 Stop Date: 06/28/23 Status: Ordered ciprofloxacin 500 mg oral tablet (1 source) Quinolone Antimicrobial Start: 02-25-2020 Cipro 500 mg Tab See Instructions, Take 1 tab day prior to procedure and 1 tab day of procdure - afterwards, # 2 tab(s), Refills(s) 0, Pharmacy: [facility]/pharmacy #[id number], 167, cm, 02/10/20 14:06:00 EDT, Height/Length [...] fluctuations] Onset: 06-23-2023 Chronic 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) 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; 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: [PENITENTIARY (CURRENT) USE OF ORAL HYPOGLYCEMIC DRUGS] Onset: [...] Onset: 05-24-2022 Episodic Other aftercare (2 sources) termite treater 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) use of aspirin; 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: [PENITENTIARY (CURRENT) USE OF ASPIRIN] Onset: 08-11-2017 Episodic Other aftercare (1 source) Other intermediate (current) drug therapy; 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: [OTH PENITENTIARY CURRENT DRUG THERAPY] Onset: 05-22-2022 Episodic Other [...] Locations R1: This test was performed at: [facility], [address] [place] [address], [address]- , [place], Normal [facility] Comment on above: Performed By: #### 2 [id number], [id number] #### [facility] [address] [place] [address] BMPon 07-16-2023 Anion gap [Moles/Vol] 14 mmol/L Normal 6-16 [facility] Comment on above: Performed By: #### 2 350078, [id number] #### [facility] [address] [place] [address] BUN/Creat Ratio 22 No Units High 10-20 [facility] Comment on above: Performed By: #### 2 472257, [id number] #### [facility] [address] [place] [address] Calcium [Mass/Vol] 11.6 mg/dL High 8.9-11.1 [facility] Comment on above: Performed By: #### 2 115460, [id number] #### [facility] [address] [place] [address] Chloride [Moles/Vol] 105 mmol/L Normal 101-111 [facility] Comment on above: Performed By: #### 2 484024, [id number] #### [facility] [address] [place] [address] 22164 CO2 [Moles/Vol] 26 mmol/L Normal 21-31 [facility] Comment on above: Performed By: #### 2 475915, [id number] #### [facility] [address] [place] [address] Creatinine [Mass/Vol] 0.9 mg/dL Normal 0.5-1.3 [facility] Comment on above: Performed By: #### 2 028865, [id number] #### [facility] [address] [place] [address] Glucose [Mass/Vol] 87 mg/dL Normal 55-199 [facility] Comment on above: Performed By: #### 2 387845, [id number] #### [facility] [address] [place] [address] Potassium [Moles/Vol] 4.0 mmol/L Normal 3.5-5.3 [facility] Comment on above: Performed By: #### 2 722352, [id number] #### [facility] [address] [place] [address] Sodium [Moles/Vol] 141 mmol/L Normal 135-145 [facility] Comment on above: Performed By: #### 2 716807, [id number] #### [facility] [address] [place] [address] Urea nitrogen [Mass/Vol] 20 mg/dL Normal 5-21 [facility] Comment on above: Performed By: #### 2 400062, [id number] #### [facility] [address] [place] [address] CBC w/ Auto Diffon 4 Basophil Absolute 0.1 E9/L Normal 0.0-0.2 [facility] Comment on above: Performed By: #### 2 791351, [id number] #### [facility] [address] [place] [address] Basophils/100 WBC (Bld) 1.1 % Normal 0.0-2.0 [facility] Comment on above: Performed By: #### 2 272079, [id number] #### [facility] [address] [place] [address] Eos Absolute 0.2 E9/L Normal 0.0-0.5 [facility] Comment on above: Performed By: #### 2 469260, [id number] #### [facility] [address] [place] [address] Eosinophils/100 WBC (Bld) 1.7 % Normal 0.0-8.0 [facility] Comment on above: Performed By: #### 2 935785, [id number] #### [facility] [address] [place] [address] Erythrocyte distribution width (RBC) [Ratio] 13.5 % Normal 10.9-14.2 [facility] Comment on above: Performed By: #### 2 589406, [id number] #### [facility] [address] [place] [address] Hematocrit (Bld) [Volume fraction] 43.0 % Normal 34.0-46.0 [facility] Comment on above: Performed By: #### 2 474099, [id number] #### [facility] [address] [place] [address] Hemoglobin (Bld) [Mass/Vol] 14.3 g/dL Normal 12.0-16.0 [facility] Comment on above: Performed By: #### 2 022045, [id number] #### [facility] [address] [place] [address] Lymph Absolute 3.4 E9/L Normal 1.0-4.0 [facility] Comment on above: Performed By: #### 2 503976, [id number] #### [facility] [address] [place] [address] Lymphocytes/100 WBC (Bld) 38.0 % Normal 14.0-50.0 [facility] Comment on above: Performed By: #### 2 107259, [id number] #### [facility] [address] [place] [address] MCH (RBC) [Entitic mass] 30.9 pg Normal 27.0-34.0 [facility] Comment on above: Performed By: #### 2 521560, 24061682 #### [facility] [address] [place] [address] MCHC (RBC) [Mass/Vol] 33.0 g/dL Normal 31.4-36.0 [facility] Comment on above: Performed By: #### 2 105014, [id number] #### [facility] [address] [place] [address] MCV (RBC) [Entitic vol] 93.5 fL Normal 80.0-100.0 [facility] Comment on above: Performed By: #### 2 696248, [id number] #### [facility] [address] [place] [address] Rich Absolute 1.2 E9/L High 0.2-1.0 [facility] Comment on above: Performed By: #### 2 181326, [id number] #### [facility] [address] [place] [address] Monocytes/100 WBC (Bld) 12.9 % Normal 4.0-14.0 [facility] Comment on above: Performed By: #### 2 277455, [id number] #### [facility] [address] [place] [address] Neutro Absolute 4.2 E9/L Normal 2.0-7.5 [facility] Comment on above: Performed By: #### 2 298889, [id number] #### [facility] [address] [place] [address] Neutro Auto 46.3 % Normal 36.0-75.0 [facility] Comment on above: Performed By: #### 2 531607, [id number] #### [facility] [address] [place] [address] Platelet 325.0 E9/L Normal 150.0-500.0 [facility] Comment on above: Performed By: #### 2 208715, 70530104 #### [facility] [address] [place] [address] Platelet mean volume (Bld) [Entitic vol] 9.3 fL Normal 6.4-10.8 [facility] Comment on above: Performed By: #### 2 156620, [id number] #### [facility] [address] [place] [address] RBC 4.6 E12/L Normal 4.3-5.9 [facility] Comment on above: Performed By: #### 2 307378, [id number] #### [facility] [address] [place] [address] WBC 9.0 E9/L Normal 4.0-11.0 [facility] Comment on above: Performed By: #### 2 250640, [id number] #### [facility] [address] [place] [address] Consent for Treatmenton Consent for Treatment [id number] Normal [facility] Discharge Instructionson Discharge Instructions [id number] Normal [facility] ED Clinical Summaryon 2023 ED Clinical Summary (Inserted Image. Jenni ble to display) [address] [address] ED Clinical Summary Person Information Name: JUDITH KHAN [facility] Age: 78 Years : 1945 Sex: Female Language: [place] Islander PCP: Rodrick Sams MD Marital Status: Visit [...] 07/16/2023 15:44:31 07/16/2023 15:44:31 07/16/2023 15:44:31 ADDRESS: [address] [place] [id number] PHYS DOC NOTES: MEDICAL INFORMATION: Prescriptions Given: [...] up: With: Address: When: Rodrick Sams [address] [facility] [facility], [place] [address] Business (1) In 3 days 07/19/2023 DIAGNOSIS: Weakness Normal [facility] ED Note-Physicianon 07-16-19 ED Note-Physician [...] Sams In 3 days 07/19/2023 EST [address] [place] [address] [place] [address]- Business (1) Additional Instructions: Patient Education Weakness [...] made to ensure accuracy, however, inadvertently computerized corporate associate attorney mistakes may be present. Appropriate healthcare PPE [...] 11:50:00) MC (more content not included)... Normal [facility] Comment on above: Result Comment: [...] Consider working with a physical therapist or program trainer who can develop an exercise plan to help you gain muscle strength. General instructions ? Take twyr-aim-osewmvm and prescription medicines only as told by [...] Reviewed: 04/30/2022 Elsevier Patient Education ? 2022 [employer] Normal [facility] ED Patient Summaryon 024 ED Patient Summary (Inserted Image. Jenni ble to display) [place] [id number] Patient Discharge Instructions Person Information Name: JUDITH KHAN Age: 78 Years Arrival Date: 07/16/2023 11:33:16 Discharge Diagnosis: Weakness Primary Care Physician: Rodrick Sams MD Provider Information Primary Provider: Demarco Beaver DO Advanced Foreign Collection Clerk:Leighton Fernandes PA-C The exam and treatment you received in the Emergency Department were for an urgent problem and are not intended as complete care. It is important that you follow up with a doctor, nurse practitioner, or physician?s assistant superintendent for ongoing care. If your symptoms become worse or you do not improve as expected and you are unable to reach your usual health care provider, you should return to the Emergency Department. We are available 24 hours a day. JUDITH KHAN has been given the following list of patient education materials, prescriptions and follow-up instructions: Follow-up Instructions: With: Address: When: Rodrick Sams [address] [place] [address], [address] [place] [id number] Business (1) In 3 days 07/19/2023 In the event that this physician does not participate in your insurance network, please consult with your insurance company to find a nearby participating provider. Patient Education Materials: Weakness A MESSAGE TO ALL PATIENTS REGARDING OPIOIDS PRESCRIPTION OPIOIDS: WHAT YOU NEED TO KNOW Prescription opioids can be used to help relieve mgkgshvg-cq-cmytyc pain and are often prescribed following a [...] guidance or call [employer]?S National Helpline at 8-340-278-HELP. v Source: [place] Department of Health a (more content not included)... Normal [facility] Troponin 0 Hr.on 07-16-2023 Troponin 21.20 pg/mL Normal 10.10-27.10 [facility] Comment on above: Result Comment: The 95% CI (Confidence Interval) PPV (Positive Predictive Value) for myocardial infarction in females is 38 pg/mL, in males 51 pg/mL. The results should be used in conjunction with clinical conditions of myocardial infarction. (Access High Sensitivity Troponin I Instructions For Use, Jacques Ceci, January 2018) Performed By: #### 2 889589, [id number] #### [facility] [address] [place] [address] Troponin 3 Hr.on 07-16-2023 Troponin 19.60 pg/mL Normal 10.10-27.10 [facility] Comment on above: Result Comment: The 95% CI (Confidence Interval) PPV (Positive Predictive Value) for myocardial infarction in females is 38 pg/mL, in males 51 pg/mL. The results should be used in conjunction with clinical conditions of myocardial infarction. (Access High Sensitivity Troponin I Instructions For Use, [employer] For [employer], January 2018) Performed By: #### 1 [id number] #### [facility] [address] [place] [address] UA With Cult Reflexon 2023 Bacteria LM Ql (Urine sed) TRACE Normal Trace [facility] Comment on above: Performed By: #### 2 619855, [id number] #### [facility] [address] [place] [address] Bilirubin Ql (U) Negative Normal Negative [facility] Comment on above: Performed By: #### 2 796412, [id number] #### [facility] [address] [place] [address] Clarity (U) CLEAR Normal Clear [facility] Comment on above: Performed By: #### 2 976817, [id number] #### [facility] [address] [place] [address] Color (U) YELLOW Normal Yellow [facility] Comment on above: Performed By: #### 2 286173, [id number] #### [facility] [address] [place] [address] Crystals LM Ql (Urine sed) Present Normal [facility] Comment on above: Performed By: #### 2 034196, [id number] #### [facility] [address] [place] [address] Epithelial cells.squamous LM.HPF (Urine sed) [#/Area] 0-2 Normal 0-2 [facility] Comment on above: Performed By: #### 2 652634, [id number] #### [facility] [address] [place] [address] Glucose Test strip (U) [Mass/Vol] Negative Normal Negative [facility] Comment on above: Performed By: #### 2 295335, [id number] #### [facility] [address] [place] [address] Hemoglobin Ql (U) Negative Normal Negative [facility] Comment on above: Performed By: #### 2 549934, [id number] #### [facility] [address] [place] [address] Ketones (U) [Mass/Vol] Negative Normal Negative [facility] Comment on above: Performed By: #### 2 207690, [id number] #### [facility] [address] [place] [address] Wales.plasma/Lithi um.RBC (Bld) [Mass ratio] 0-3 Normal 0-3 [facility] Comment on above: Performed By: #### 2 208323, 28552652 #### [facility] [address] [place] [address] Nitrite Ql (U) Negative Normal Negative [facility] Comment on above: Performed By: #### 2 360302, [id number] #### [facility] [address] [place] [address] pH (U) 7.0 [pH] Invalid Interpretation Code 5.0-9.0 [facility] Comment on above: Performed By: #### 2 160910, 07801690 #### [facility] [address] [place] [address] Protein (U) [Mass/Vol] Negative Normal Negative [facility] Comment on above: Performed By: #### 2 984891, [id number] #### [facility] [address] [place] [address] Specific gravity (U) [Rel density] 1.015 Invalid Interpretation Code 1.005-1.030 [facility] Comment on above: Performed By: #### 2 228187, 48884629 #### [facility] [address] [place] [address] Type of Urine collection method Clean Catch Normal [facility] Comment on above: Performed By: #### 2 903915, [id number] #### [facility] [address] [place] [address] Urobilinogen Qn (U) 0.2 {Phoebe'U}/dL Normal 0.0-1.0 [facility] Comment on above: Performed By: #### 2 599037, 19371483 #### [facility] [address] [place] [address] WBC Auto Ql (U) 1+ Abnormal Negative [facility] Comment on above: Performed By: #### 2 217493, [id number] #### [facility] [address] [place] [address] WBC LM.HPF (Urine sed) [#/Area] 0-5 Normal 0-5 [facility] Comment on above: Performed By: #### 2 612200, [id number] #### [facility] [address] [place] [address] eGFRon 07-16-2023 eGFR 66 mL/min/1.73 m2 Normal >=59 [facility] Comment on above: Order Comment: Order added by Discern Expert. Performed By: #### 2 316781, [id number] #### [facility] [address] [place] [id number] Office Visiton 07-06-2023 Follow-up visit [id number] Donato Khan 1945 F Date Provider Department Center 07/06/2023 [facility] Family History Problem Relation Age of Onset Stroke Mother Stroke Brother Other Mother's Sister Coronary artery disease Mother's Sister Stroke Maternal Grandmother Family Status - Relation Status Age at Mother Brother Mother's Sister Maternal Grandmother Level of Service:40679 [place] OFFICE/OUTPATIENT ESTABLISHED MOD MDM 30 MIN Normal [facility] C Urineon 06-25-2023 Bacteria identified Cx Nom (U) Microbiology PROCEDURE: Urine Culture [R1] SOURCE: U Cath BODY SITE: COLLECTED DATE/TIME: 06/23/2023 03:01 EST RECEIVED DATE/TIME: 06/23/2023 05:52 EST START DATE/TIME: 06/23/2023 05:52 EST FREE TEXT SOURCE: Elizabeth Sidhu M.D., Augie Sdihu M.D., Augie Charlton FINAL REPORTS Final Report [...] Locations R1: This test was performed at: [facility], [address] [place] [address], [address]- , , Normal [facility] Comment on above: Performed By: #### 1 7139359, [id number] #### [facility] [address] [place] [address] UA With Cult Reflexon 2023 UA Spec Desc Catheter Normal [facility] Comment on above: Result Comment: Mini cath specimen Performed By: #### 1 6433734, [id number] #### [facility] [address] [place] [address] Discharge Instructionson Discharge Instructions [id number] Normal [facility] Message from Medicareon 06-11 Message from Medicare [id number] Normal [facility] Auto Diffon 06-23-2023 Basophils/100 WBC (Bld) 0.4 % Normal 0.0-2.0 [facility] Comment on above: Order Comment: Order Added by Discern Expert. Performed By: #### 2 768312, [id number] #### [facility] [address] [place] [address] Basophils/Leukocytes Auto (Bld) [Pure # fraction] 0.1 E9/L Normal 0.0-0.2 [facility] Comment on above: Order Comment: Order Added by Discern Expert. Performed By: #### 2 725069, [id number] #### [facility] [address] [place] [address] Eosinophils/100 WBC (Bld) 0.8 % Normal 0.0-8.0 [facility] Comment on above: Order Comment: Order Added by Discern Expert. Performed By: #### 2 782672, [id number] #### [facility] [address] [place] [address] Eosinophils/Leukocyt es Auto (Bld) [Pure # fraction] 0.1 E9/L Normal 0.0-0.5 [facility] Comment on above: Order Comment: Order Added by Discern Expert. Performed By: #### 2 562569, [id number] #### [facility] [address] [place] [address] Lymphocytes/100 WBC (Bld) 15.1 % Normal 14.0-50.0 [facility] Comment on above: Order Comment: Order Added by Discern Expert. Performed By: #### 2 544117, [id number] #### [facility] [address] [place] [address] Lymphocytes/Leukocyt es Auto (Bld) [Pure # fraction] 2.2 E9/L Normal 1.0-4.0 [facility] Comment on above: Order Comment: Order Added by Discern Expert. Performed By: #### 2 175009, [id number] #### [facility] [address] [place] [address] Monocytes/100 WBC (Bld) 11.3 % Normal 4.0-14.0 [facility] Comment on above: Order Comment: Order Added by Discern Expert. Performed By: #### 2 591019, [id number] #### [facility] [address] [place] [address] Monocytes/Leukocytes Auto (Bld) [Pure # fraction] 1.6 E9/L High 0.2-1.0 [facility] Comment on above: Order Comment: Order Added by Discern Expert. Performed By: #### 2 453471, [id number] #### [facility] [address] [place] [address] Neutrophils/100 WBC (Bld) 72.4 % Normal 36.0-75.0 [facility] Comment on above: Order Comment: Order Added by Discern Expert. Performed By: #### 2 674607, [id number] #### [facility] [address] [place] [address] Neutrophils/Leukocyt es Auto (Bld) [Pure # fraction] 10.5 E9/L High 2.0-7.5 [facility] Comment on above: Order Comment: Order Added by Discern Expert. Performed By: #### 2 482540, [id number] #### [facility] [address] [place] [address] BMPon 06-23-2023 Anion gap [Moles/Vol] 13 mmol/L Normal 6-16 [facility] Comment on above: Performed By: #### 2 620009, [id number] #### [facility] [address] [place] [address] BUN/Creat Ratio 20 No Units Normal 10-20 [facility] Comment on above: Performed By: #### 2 [id number], [id number] #### [facility] [address] [place] [address] Calcium [Mass/Vol] 10.7 mg/dL Normal 8.9-11.1 [facility] Comment on above: Performed By: #### 2 373135, [id number] #### [facility] [address] [place] [address] Chloride [Moles/Vol] 103 mmol/L Normal 101-111 [facility] Comment on above: Performed By: #### 2 343300, [id number] #### [facility] [address] [place] [address] CO2 [Moles/Vol] 25 mmol/L Normal 21-31 [facility] Comment on above: Performed By: #### 2 851722, [id number] #### [facility] [address] [place] [address] Creatinine [Mass/Vol] 0.9 mg/dL Normal 0.5-1.3 [facility] Comment on above: Performed By: #### 2 618093, [id number] #### [facility] [address] [place] [address] Glucose [Mass/Vol] 98 mg/dL Normal 55-199 [facility] Comment on above: Performed By: #### 2 206683, [id number] #### [facility] [address] [place] [address] Potassium [Moles/Vol] 3.5 mmol/L Normal 3.5-5.3 [facility] Comment on above: Performed By: #### 2 417050, [id number] #### [facility] [address] [place] [address] Sodium [Moles/Vol] 137 mmol/L Normal 135-145 [facility] Comment on above: Performed By: #### 2 833909, [id number] #### [facility] [address] [place] [address] Urea nitrogen [Mass/Vol] 18 mg/dL Normal 5-21 [facility] Comment on above: Performed By: #### 2 777152, [id number] #### [facility] [address] [place] [address] CBC w/ Auto Diffon Erythrocyte distribution width (RBC) [Ratio] 13.6 % Normal 10.9-14.2 [facility] Comment on above: Performed By: #### 2 009073, [id number] #### [facility] [address] [place] [address] Hematocrit (Bld) [Volume fraction] 40.9 % Normal 34.0-46.0 [facility] Comment on above: Performed By: #### 2 663974, [id number] #### [facility] [address] [place] [address] Hemoglobin (Bld) [Mass/Vol] 13.7 g/dL Normal 12.0-16.0 [facility] Comment on above: Performed By: #### 2 402279, [id number] #### [facility] [address] [place] [address] MCH (RBC) [Entitic mass] 30.8 pg Normal 27.0-34.0 [facility] Comment on above: Performed By: #### 2 739272, [id number] #### [facility] [address] [place] [address] MCHC (RBC) [Mass/Vol] 33.4 g/dL Normal 31.4-36.0 [facility] Comment on above: Performed By: #### 2 387571, [id number] #### [facility] [address] [place] [address] MCV (RBC) [Entitic vol] 92.2 fL Normal 80.0-100.0 [facility] Comment on above: Performed By: #### 2 084149, [id number] #### [facility] [address] [place] [address] Platelet mean volume (Bld) [Entitic vol] 9.9 fL Normal 6.4-10.8 [facility] Comment on above: Performed By: #### 2 494185, [id number] #### [facility] [address] [place] [address] Platelets (Bld) [#/Vol] 301.0 E9/L Normal 150.0-500.0 [facility] Comment on above: Performed By: #### 2 771698, [id number] #### [facility] [address] [place] [address] RBC (Bld) [#/Vol] 4.4 E12/L Normal 4.3-5.9 [facility] Comment on above: Performed By: #### 2 172137, [id number] #### [facility] [address] [place] [address] WBC corrected for nucl RBC Auto (Bld) [#/Vol] 14.5 E9/L High 4.0-11.0 [facility] Comment on above: Performed By: #### 2 357579, [id number] #### [facility] [address] [place] [address] CHEMISTRYOrdered By: SYSTEM SYSTEM on 06-23-2023 Troponin [...] conjunction with clinical conditions of myocardial infarction. ([employer] High Sensitivity Troponin I Instructions For Use, Endorse For A Cause, January 2018) Troponin 183.20 pg/mL Invalid Interpretation Code 10.10 - 27.10 pg/mL [facility] Comment on above: Result Comment: Crit ical Result Verified by Previous Result Critical Result I_TnIHS:183.2 Called to and read back by: TATIANA MUNSON at: 06/23/2023 09:12:46 by:CMK Interpretive Data: T he 95% CI (Confidence Interval) PPV (Positive Predictive Value) for myocardial infarction in females is 38 pg/mL, in males 51 pg/mL. The results should be used in conjunction with clinical conditions of myocardial infarction. ([employer] High Sensitivity Troponin I Instructions For Use, Endorse For A Cause, January 2018) Troponin 116.80 pg/mL Invalid Interpretation [...] conjunction with clinical conditions of myocardial infarction. ([employer] High Sensitivity Troponin I Instructions For Use, Endorse For A Cause, January 2018) Lactic Acid Lvl 1.1 mmol/L [...] 96 mg/dL Normal 55 - 99 mg/dL [facility] POC Subsection Comment on above: Result Comment: Bonnie jamil RN/ POC Device SN [id number] Invalid Interpretation Code [facility] POC Subsection POC User ID [id number] 1 Invalid Interpretation Code [facility] POC Subsection POC Username JOSH GERONIMO Invalid Interpretation Code [facility] POC Subsection COAGULATIONOrdered By: Hoang Chris on 06-23-2023 aPTT Coag (PPP) [Time] 30.4 s Normal 25.1 - 36.5 second(s) [facility] Auto Coag Comment on above: Interpretive Data: [...] the same coagulation reagent and instrumentation as [facility]. Currently there are no coagulation studies available worldwide for children to 14 days, and no normal ranges. Heparin therapeutic range (represented by Anti-Factor Xa activity of 0.2 - 0.4 U/mL) corresponds to PTT of 56.6 - 109.0 sec. INR Coag (PPP) [Relative time] 1.0 {INR} Invalid Interpretation Code [facility] Auto Coag Comment on above: Interpretive Data: I NR results are specifically intended to assess patients stabilized on long-term Anticoagulation therapy suggested INR s Less Intensive Anticoagulation 2.0 3.0 Conventional Range 3.0 4.5 PT Coag (PPP) [Time] 11.7 s Normal 9.4 - 1 2.5 second(s) [facility] Auto Coag Comment on above: Interpretive Data: [...] the same coagulation reagent and instrumentation as [facility]. Currently there are no coagulation studies available [...] Technologist: YOLY Technical Comments Contrast: None Normal [facility] Capillary Glucose POCon 06-11 Glucose [Mass/Vol] 96 mg/dL Normal 55-99 [facility] Comment on above: Result Comment: Bonnie jamil RN/ Performed By: #### 2 [id number] #### [facility] [address] [place] [address] Consent for Treatmenton 06-11 Consent for Treatment [id number]#1.00TIFF Normal [facility] Discharge Note-Nursingon Discharge Note-Nursing JUDITH [...] Doctor Event Name Event Result Pharmacy Information [facility]- [facility] New Follow Up Appointments after Discharge Follow Up with Dani HERRERA, JOANNA Kauffman When: Within 1 to [facility] weeks [facility] [place] [place] [address]- Medications What How Much When Instructions Next [...] days a (more content not included)... Normal [facility] ED Clinical Summaryon 2023 ED Clinical Summary (Inserted Image. Jenni ble to display) [address] [address] ED Clinical Summary Person Information Name: JUDITH KHAN Alecia/[facility] Age: 78 Years : 1945 Sex: Female Language: [place] PCP: Rodrick Sams MD Marital Status: Visit Id: Visit Reason: Potential stroke; POSS STROKE Speciality: Acuity: 2 Enc Type: Observation Med Service: Emergency Arrival: 06/23/2023 01:35:17 Discharge: LOS: 000 03:53 Checkin: 06/23/2023 01:35:17 Checkout: 06/23/2023 05:28:48 Dispo Type: Admitted as IP to this [facility] EVENTS: Event Name Event Status Request [...] 04:30:21 Meds Admin Request 06/23/2023 04:30:49 ADDRESS: [address] [place] [id number] PHYS DOC NOTES: MEDICAL INFORMATION: Prescriptions Given: [...] 4:Elevated troponin; 5:Hypertension; 6:High cholesterol; 7:Parkinsons Normal [facility] ED Note-Physicianon 06-23-19 ED Note-Physician [...] both correctly = 0 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 Normal [facility] Comment on above: Result Comment: Elec tronically Signed By: Augie Sidhu M.D.\.andreia\Date and Time Signed: 06/23/23 04:21 EST ED Patient Education Noteon 06-23-2023 ED Patient Education Note Normal [facility] ED Patient Summaryon 024 ED Patient Summary (Inserted Image. Jenni ble to display) [place] [id number] Patient Discharge Instructions Person Information Name: JUDITH KHAN Age: 78 Years Arrival Date: 06/23/2023 01:35:17 Discharge Diagnosis: 1:Right sided weakness; 2:Hypoxia; 3:Urinary tract infection; 4:Elevated troponin; 5:Hypertension; 6:High cholesterol; 7:Parkinsons Primary Care Physician: Rodrick Sams MD Provider Information Primary Provider: Augie Sidhu M.D. Advanced Foreign Collection Clerk:None The exam and treatment you received in the Emergency Department were for an urgent problem and are not intended as complete care. It is important that you follow up with a doctor, nurse practitioner, or physician?s assistant superintendent for ongoing care. If your symptoms become [...] opioids can be used to help relieve rxhrkdci-wi-eylkdr pain and are often prescribed following a [...] caregiver and ask for guidance or call [facility] National Helpline at 6-667-755-YGNT. v Source: US Department of Health and Human Services/Center for Disease (more content not included)... Normal [facility] HEMATOLOGYOrdered By: SYSTEM SYSTEM on [...] 14.5 E9/L High 4.0 - 11.0 E9/L [facility] HemeAutoSS Hep Func Panelon 06-23-2023 Albumin [Mass/Vol] 4.1 g/dL Normal 3.3-5.0 [facility] Comment on above: Performed By: #### 2 975289, [id number] #### [facility] [address] [place] [address] Albumin/Globulin [Mass ratio] 1.7 {ratio} Normal 1.1-2.2 [facility] Comment on above: Performed By: #### 2 967638, [id number] #### [facility] [address] [place] [address] Alk Phos 80 Int._Unit/L Normal 21-98 [facility] Comment on above: Performed By: #### 2 698462, [id number] #### [facility] [address] [place] [address] ALT 10 Int._Unit/L Normal 6-46 [facility] Comment on above: Performed By: #### 2 006196, [id number] #### [facility] [address] [place] [address] AST 16 Int._Unit/L Normal 5-43 [facility] Comment on above: Performed By: #### 2 720366, [id number] #### [facility] [address] [place] [address] Bili Direct 0.1 mg/dL Normal 0.0-0.4 [facility] Comment on above: Performed By: #### 2 616253, [id number] #### [facility] [address] [place] [address] Bili Indirect 0.5 mg/dL Normal 0.1-0.9 [facility] Comment on above: Performed By: #### 2 226049, [id number] #### [facility] [address] [place] [address] Bili Total 0.6 mg/dL Normal 0.0-1.1 [facility] Comment on above: Performed By: #### 2 002249, [id number] #### [facility] [address] [place] [address] Globulin (S) [Mass/Vol] 2.4 g/dL Normal 1.4-4.0 [facility] Comment on above: Performed By: #### 2 037067, [id number] #### [facility] [address] [place] [address] Protein [Mass/Vol] 6.5 g/dL Normal 6.0-7.8 [facility] Comment on above: Performed By: #### 2 355251, [id number] #### [facility] [address] [place] [address] Interdisciplinary Note - Bobby n 06-23-2023 Interdisciplinary [...] Recommend Out-pt. OT eval. for Parkinson's. Normal [facility] Interdisciplinary Note - Spe ech [...] further ST needs at this time. Normal [facility] Lactic Acidon 06-23-2023 Lactic Acid Lvl 1.1 mmol/L Normal 0.5-2.[address] [facility] Comment on above: Performed By: #### 2 779316, [id number] #### [facility] [address] [place] [address] MICRO OTHER TESTSOrdered By: Hoang Chris on 06-23-2023 Rapid COV Int NEG Ctl Pass (06/23/23 2:12 AM) Normal [facility] Man Sero Rapid COV Int POS Ctl Pass (06/23/23 2:12 AM) Normal [facility] Sero SARS-CoV+SARS-CoV-2 (COVID-19) Ag IA.rapid Ql (Resp) Not Detected 11 (06/23/23 2:12 AM) Normal Not Detected [facility] Comment on above: Interpretive Data: Bob melendez [employer] Ver[employer] System for Rapid Detection of SARS-CoV-2 [...] 06-23-2023 Magnesium [Mass/Vol] 1.8 mg/dL Normal 1.3-2.4 [facility] Comment on above: Performed By: #### 2 418104, [id number] #### [facility] [address] [place] [address] Message from Medicareon 06-11 Message from Medicare [id number]#1.00TIFF Normal [facility] Monitor Recordon 06-23-2023 Monitor Record [id number]#1.00TIFF Normal [facility] Monitor Record [id number]#1.00TIFF Normal [facility] Monitor Record [id number]#1.00TIFF Normal [facility] Monitor Record [id number]#1.00TIFF Normal [facility] PT & PTTon 06-23-2023 aPTT Coag (PPP) [Time] 30.4 second(s) Normal 25.1-36.5 [facility] Comment on above: Result Comment: [...] the same coagulation reagent and instrumentation as [facility]. Currently there are no coagulation studies available worldwide for children to 14 days, and no normal ranges. Heparin therapeutic range (represented by Anti-Factor Xa activity of 0.2 - 0.4 U/mL) corresponds to PTT of 56.6 - 109.0 sec. Performed By: #### 2 413143, [id number] #### [facility] [address] [place] [address] INR Coag (PPP) [Relative time] 1.0 {INR} Invalid Interpretation Code [facility] Comment on above: Result Comment: INR results are specifically intended to assess patients stabilized on long-term Anticoagulation therapy suggested INR?s ?Less Intensive Anticoagulation? 2.0 ? 3.0 Conventional Range 3.0 ? 4.5 Performed By: #### 2 236182, [id number] #### [facility] [address] [place] [address] PT Coag (PPP) [Time] 11.7 second(s) Normal 9.4-12.5 [facility] Comment on above: Result Comment: [...] the same coagulation reagent and instrumentation as [facility]. Currently there are no coagulation studies available worldwide for children to 14 days, and no normal ranges. Performed By: #### 2 759616, [id number] #### [facility] [address] [place] [address] Patient Education - Texton 0 1-13-2024 Patient [...] about working with a physical therapist or program trainer to help you get stronger. General instructions ? Take mtsg-syw-rsgpuxv and prescription medicines only as told by [...] provider. Document Revised: 04/30/2022 Document Reviewed: 04/30/2022 ON24 Patient Education ? 2022 [employer]. Obstetrics and Gynecology Urinary Tract Infection, Adult [...] (sexually transmitted (more content not included)... Normal [facility] Pre-Arrival Noteon Pre-Arrival Note Pre-Arrival Summary Name: blaine Current Date: 06/23/2023 01:37:08 EST Gender: Date of : Age: Pre-Arrival Type: EMS ETA: 06/23/2023 01:53:00 EST Primary Care Physician: Presenting Problem: possible stroke Pre-Arrival User: Tejal Gold RN Referring Source: Location: [place] Completion Date/Time: 06/23/2023 01:23:00 [facility] Emergency Department Pre-Hospital Report Form _ Vital Signs: Pre-Hospital Report: Treatment in Route: Response to Treatment: Misc. Issues: Normal [facility] RAD - Preliminary Cat Scan R eporton 06-23-2023 RAD - Preliminary Cat Scan Report [id number]#1.00TIFF Normal [facility] Rapid COVID Antigen (MC)on 06-23-2023 Rapid COV Int NEG Ctl Pass [facility] Comment on above: Performed By: #### 2 227072, [id number] #### [facility] [address] [place] [address] Rapid COV Int POS Ctl Pass Normal [facility] Comment on above: Performed By: #### 2 827946, [id number] #### [facility] [address] [place] [address] SARS-CoV+SARS-CoV-2 (COVID-19) Ag IA.rapid Ql (Resp) Not detected Normal Not Detected [facility] Comment on above: Result Comment: The [employer]? System for Rapid Detection of SARS-CoV-2 is [...] other viruses or pathogens; and, in the [facility], this test is only authorized for the duration of the declaration that circumstances exist justifying the authorization of emergency use of in vitro diagnostics for detection and/or diagnosis of the virus that causes COVID-19 under Section 564(b)(1) of the Act, 21 U.S.C. ? 360bbb-3(b)(1), unless the authorization is terminated or revoked sooner. Performed By: #### 2 551022, [id number] #### [address] [address] TSH With T4fr Reflexon 06-23 TSH Qn 0.68 m[IU]/L Normal 0.34-5.60 [facility] Comment on above: Performed By: #### 2 175523, [id number] #### [facility] [address] [place] [address] Troponin 0 Hr.on 06-23-2023 Troponin 42.70 pg/mL Abnormal 10.10-27.10 [facility] Comment on above: Result Comment: [...] High Sensitivity Troponin I Instructions For Use, Endorse For A Cause, January 2018) Performed By: #### 2 791940, [id number] #### [facility] [address] [place] [address] Troponin 3 Hr.on 06-23-2023 Troponin 116.80 pg/mL Abnormal 10.10-27.10 [facility] Comment on above: Result Comment: Crit ical [...] High Sensitivity Troponin I Instructions For Use, Endorse For A Cause, January 2018) Performed By: #### 1 [id number] #### [facility] [address] [place] [address] Troponin 6 Hr.on 06-23-2023 Troponin 183.20 pg/mL Abnormal 10.10-27.10 [facility] Comment on above: Result Comment: Crit ical [...] High Sensitivity Troponin I Instructions For Use, Endorse For A Cause, January 2018) Performed By: #### 1 [id number] #### [facility] [address] [place] [address] Troponin 9 Hr.on 06-23-2023 Troponin 187.00 pg/mL Abnormal 10.10-27.10 [facility] Comment on above: Result Comment: Crit ical Result Verified by Previous Result Critical Result I_TnIHS:187.0 Called to and read back by: ANGEL RESTREPO at: 06/23/2023 12:10:53 by:SYDNI The 95% CI (Confidence Interval) PPV (Positive Predictive Value) for myocardial infarction in females is 38 pg/mL, in males 51 pg/mL. The results should be used in conjunction with clinical conditions of myocardial infarction. ([employer] High Sensitivity Troponin I Instructions For Use, Endorse For A Cause, January 2018) Performed By: #### 1 [id number] ####[facility] [id number] [place] [address] UA With Cult Reflexon 2023 Bacteria LM Ql (Urine sed) 1+ /HPF Abnormal Trace [facility] Comment on above: Performed By: #### 1 [id number], [id number] #### [facility] [address] [place] [address] Bilirubin Ql (U) Negative Normal Negative [facility] Comment on above: Performed By: #### 1 4265623, [id number] #### [facility] [address] [place] [address] Clarity (U) SL CLOUDY Abnormal Clear [facility] Comment on above: Performed By: #### 1 [id number], [id number] #### [facility] [address] [place] [address] Color (U) YELLOW Normal Yellow [facility] Comment on above: Performed By: #### 1 6698922, [id number] #### [facility] [address] [place] [address] Epithelial cells.squamous LM.HPF (Urine sed) [#/Area] 0-2 Normal 0-2 [facility] Comment on above: Performed By: #### 1 [id number], [id number] #### [facility] [address] [place] [address] Glucose Test strip (U) [Mass/Vol] Negative Normal Negative [facility] Comment on above: Performed By: #### 1 3492480, [id number] #### [facility] [address] [place] [address] Hemoglobin Ql (U) Negative Normal Negative [facility] Comment on above: Performed By: #### 1 0256098, [id number] #### [facility] [address] [place] [address] Ketones (U) [Mass/Vol] Negative Normal Negative [facility] Comment on above: Performed By: #### 1 [id number], [id number] #### [facility] [address] [place] [address] Wales.plasma/Lithi um.RBC (Bld) [Mass ratio] 0-3 Normal 0-3 [facility] Comment on above: Performed By: #### 1 7438322, [id number] #### [facility] [address] [place] [address] Nitrite Ql (U) Negative Normal Negative [facility] Comment on above: Performed By: #### 1 3171392, [id number] #### [facility] [address] [place] [address] pH (U) 7.5 [pH] Invalid Interpretation Code 5.0-9.0 [facility] Comment on above: Performed By: #### 1 9611229, [id number] #### [facility] [address] [place] [address] Protein (U) [Mass/Vol] Negative Normal Negative [facility] Comment on above: Performed By: #### 1 [id number], [id number] #### [facility] [address] [place] [address] Specific gravity (U) [Rel density] 1.015 Invalid Interpretation Code 1.005-1.030 [facility] Comment on above: Performed By: #### 1 [id number], [id number] #### [facility] [address] [place] [address] Urobilinogen Qn (U) 0.2 {Phoebe'U}/dL Normal 0.0-1.0 [facility] Comment on above: Performed By: #### 1 [id number], [id number] #### [facility] [address] [place] [address] WBC Auto Ql (U) 1+ Abnormal Negative [facility] Comment on above: Performed By: #### 1 [id number], [id number] #### [facility] [address] [place] [address] WBC LM.HPF (Urine sed) [#/Area] 6-15 Abnormal 0-5 [facility] Comment on above: Performed By: #### 1 [id number], [id number] #### [facility] [address] [place] [id number] URINALYSISOrdered By: Hoang Chris on 06-23-2023 Bacteria [...] AM) Normal Negative [facility] UA Auto SS Wales.plasma/Lithi um.RBC (Bld) [Mass ratio] 0-3 /HPF Normal [...] FT UA Auto SS Urobilinogen Qn (U) 0.2945639 {Phoebe'U}/dL Normal 0.0 - 1.0 EU/dL [facility] [...] mGy = na DAP = na Normal [facility] eGFRon 01-13-2024 GFR/1.73 sq M.predicted among non-blacks MDRD (S/P/Bld) [Vol rate/Area] mL/min/{1.73_m2} Normal >=59 [facility] Comment on above: Order Comment: Order added by Discern Expert. Performed By: #### 2 [id number], [id number] #### [facility] [address] [place] [address] Creatinine (Bld) [Mass/Vol]O rdered By: Cathie Reid on 05-15-2023 Creatinine [Mass/Vol] 1.0 mg/dL 0.6-1.3 [facility] Comment on above: ER/ESD physician is notified/shown all ISTAT results.Critical values may be confirmed by laboratory testing ifdeemed necessary by ER attending doctor. ISTAT XRay CREon 05-15-2023 Creatinine [Mass/Vol] 1.0 mg/dL Normal 0.6-1.3 [facility] Comment on above: Result Comment: ER/E SD physician is notified/shown all ISTAT results. Critical values may be confirmed by laboratory testing if deemed necessary by ER attending doctor. Performed By: #### I SCRE #### [facility] [address] [place] [address] ISTAT GFR 58.023 Normal [facility] Comment on above: Result Comment: PERF ORMED BY: [place] [address] PATHOLOGIST [employer] MARISOL AGUSTIN M.D. Performed By: #### I SCRE #### [facility] [address] [place] [address] MR head/brain wo/w conon MR head/brain wo/w con [facility] [address] [place] [address] MRI Report Signed Patient: Judith Khan MR#: [id number] : 1945 Acct:[id number] Age/Sex: 78 / F ADM Date: 05/15/23 Loc: MR Room: Type: [facility] Attending Dr: Cathie CRAIGC Copies to: DIXIE [...] Adeel Meyer M.D.05/15/2023 5:24 PM Dictation Location: [place] [address] Transcribed By: [facility] 05/15/23 172 Dictated By: Adeel Meyer II, MD 05/15/23 171 Signed By: 05/15/231723 [facility] No Panel InformationOrdered By: Cathie Reid on 05-15-2023 Bedside Estimated GFR (eGFR) 58.023 [facility] 37on 01-12-2023 37 Hold metoprolol and see if fatigue levels improve Continue all other medications Monitor blood pressure 1-2 times a day and if it increases greater than 130/80 please call the office for medication adjustment, or for tachycardia/palpitations Normal [facility] Office Visiton 01-12-2023 Follow-up visit [id number] RhettbrianDonato chua raffy Davis 1945 F Date Provider Department Center 01/12/2023 COOPER SORIA [facility] Family History Problem Relation Age of Onset Stroke Mother Stroke Brother Other Mother's Sister Coronary artery disease Mother's Sister Stroke Maternal Grandmother Family Status - Relation Status Age at Mother Brother Mother's Sister Maternal Grandmother Level of Service:[address] [place] OFFICE/OUTPATIENT ESTABLISHED LOW MDM 20-29 MIN Normal [facility] BNPon 10-09-2022 Natriuretic peptide B (Bld) [Mass/Vol] 90.0 pg/mL Normal <=1,800.0 [facility] Comment on above: Performed By: #### M G, CMP, TSH, T7, BNP #### [facility] [address] [place] [address] Dr. Glenys Holly CBC AUTO DIFFon 10-09-2022 BASO # 0.1 103/ul Normal 0.0-0.1 [facility] Comment on above: Performed By: #### M G, CMP, TSH, T7, BNP #### [facility] [address] [place] [address] [address] Glenys Holly Basophils/100 WBC (Bld) 1.0 % Normal 0.2-2.0 [facility] Comment on above: Performed By: #### M G, CMP, TSH, T7, BNP #### [facility] [address] [place] [address] [address] Glenys Holly EO # 0.5 103/ul Normal 0.0-0.7 [facility] Comment on above: Performed By: #### M G, CMP, TSH, T7, BNP #### [facility] [address] [place] [address] Dr. Glenys Holly Eosinophils/100 WBC (Bld) 6.4 % Normal 0.9-7.0 [facility] Comment on above: Performed By: #### M G, CMP, TSH, T7, BNP #### [facility] [address] [place] [address] Dr. Glenys Holly Erythrocyte distribution width (RBC) [Ratio] 15.4 % Critically high 11.0-15.0 [facility] Comment on above: Performed By: #### M G, CMP, TSH, T7, BNP #### [facility] [address] [place] [address] Dr. Glenys Holly Hematocrit (Bld) [Volume fraction] 42.8 % Normal 36.0-48.0 [facility] Comment on above: Performed By: #### M G, CMP, TSH, T7, BNP #### [facility] [address] [place] [address] Dr. Glenys Holly Hemoglobin (Bld) [Mass/Vol] 14.1 g/dL Normal 12.0-16.0 [facility] Comment on above: Performed By: #### M G, CMP, TSH, T7, BNP #### [facility] [address] [place] [address] Dr. Glenys Holly IG # 0.01 10e3/ul Normal 0.00-0.03 [facility] Comment on above: Performed By: #### M G, CMP, TSH, T7, BNP #### [facility] [address] [place] [address] Dr. Glenys Holly IG % 0.1 % Normal 0.0-0.5 [facility] Comment on above: Performed By: #### M G, CMP, TSH, T7, BNP #### [facility] [address] [place] [address] Dr. Glenys Holly LYMPH # 3.3 103/ul Normal 1.2-3.8 [facility] Comment on above: Performed By: #### M G, CMP, TSH, T7, BNP #### [facility] [address] [place] [address] Dr. Gelnys Holly Lymphocytes/100 WBC (Bld) 44.2 % Normal 20.5-60.0 [facility] Comment on above: Performed By: #### M G, CMP, TSH, T7, BNP #### [facility] [address] [place] [address] Dr. Glenys Holly MANUAL DIFF REQ NO Normal [facility] Comment on above: Performed By: #### M G, CMP, TSH, T7, BNP #### [facility] [address] [place] [address] Dr. Glenys Holly MCH (RBC) [Entitic mass] 30.3 pg Normal 26.7-34.0 [facility] Comment on above: Performed By: #### M G, CMP, TSH, T7, BNP #### [facility] [address] [place] [address] Dr. Glenys oHlly MCHC (RBC) [Mass/Vol] 32.9 g/dL Normal 29.9-35.2 [facility] Comment on above: Performed By: #### M G, CMP, TSH, T7, BNP #### [facility] [address] [place] [address] Dr. Glenys Holly MCV (RBC) [Entitic vol] 92.0 fL Normal 81.0-99.0 [facility] Comment on above: Performed By: #### M G, CMP, TSH, T7, BNP #### [facility] [address] [place] [address] Dr. Glenys Holly MONO # 1.2 103/ul Critically high 0.3-0.8 [facility] Comment on above: Performed By: #### M G, CMP, TSH, T7, BNP #### [facility] [address] [place] [address] Dr. Glenys Holly Monocytes/100 WBC (Bld) 16.4 % Critically high 1.7-12.0 [facility] Comment on above: Performed By: #### M G, CMP, TSH, T7, BNP #### [facility] [address] [place] [address] Dr. Glenys Holly NEUT # 2.4 103/ul Normal 1.4-6.5 [facility] Comment on above: Performed By: #### M G, CMP, TSH, T7, BNP #### [facility] [address] [place], [place] [id number] Dr. Glenys Holly Neutrophils/100 WBC (Bld) 31.9 % Critically low 43.0-75.0 [facility] Comment on above: Performed By: #### M G, CMP, TSH, T7, BNP #### [facility] [address] [place] [address] [address] Glenys Holly Platelet mean volume (Bld) [Entitic vol] 10.3 fL Normal 9.5-13.5 [facility] Comment on above: Performed By: #### M G, CMP, TSH, T7, BNP #### [facility] [address] [place] [address] Dr. Glenys Holly PLT 379 103/ul Normal 150-450 [facility] Comment on above: Performed By: #### M G, CMP, TSH, T7, BNP #### [facility] [address] [place] [address] Dr. Glenys Holly RBC 4.65 106/ul Normal 4.20-5.40 [facility] Comment on above: Performed By: #### M G, CMP, TSH, T7, BNP #### [facility] [address] [place] [address] Dr. Glenys Holly WBC 7.4 103/ul Normal 4.0-11.0 [facility] Comment on above: Performed By: #### M G, CMP, TSH, T7, BNP #### [facility] [address] [place] [address] Dr. Glenys Holly FERRITINon 10-09-2022 Ferritin [Mass/Vol] 68.0 ng/mL Normal 8.0-252.0 [facility] Comment on above: Performed By: #### F ERR, IRON, VITAD ####[facility] [address] [place] [address]Dr. Glenys Holly FREE THYROXINE INDEX T7on FTI 3.10 Normal 1.30-4.50 [facility] Comment on above: Performed By: #### M G, CMP, TSH, T7, BNP #### [facility] [address] [place] [address] Dr. Glenys Holly T3U 36.0 % Normal 30.0-39.0 [facility] Comment on above: Performed By: #### M G, CMP, TSH, T7, BNP #### [facility] [address] [place] [address] [address] Glenys Holly T4 [Mass/Vol] 8.60 ug/dL Normal 4.80-13.90 [facility] Comment on above: Performed By: #### M G, CMP, TSH, T7, BNP #### [facility] [address] [place] [address] [address] Glenys Holly IRONon 10-09-2022 Iron [Mass/Vol] 52.0 ug/dL Normal 50.0-170.0 [facility] Comment on above: Performed By: #### F ERR, IRON, VITAD ####[facility] [address] [place] [address]Dr. Glenys Holly MAGNESIUMon 10-09-2022 Magnesium [Mass/Vol] 2.0 mg/dL Normal 1.8-2.4 [facility] Comment on above: Performed By: #### M G, CMP, TSH, T7, BNP #### [facility] [address] [place] [address] [address] Glenys Holly PROF 14(COMP METB)on 023 Albumin [Mass/Vol] 3.5 g/dL Normal 3.4-5.0 [facility] Comment on above: Performed By: #### M G, CMP, TSH, T7, BNP #### [facility] [address] [place] [address] [address] Glenys Holly Albumin/Globulin [Mass ratio] 1.0 {ratio} Normal [facility] Comment on above: Performed By: #### M G, CMP, TSH, T7, BNP #### [facility] [address] [place] [address] [address] Glenys Holly ALP [Catalytic activity/Vol] 134 U/L Critically high 46-116 [facility] Comment on above: Performed By: #### M G, CMP, TSH, T7, BNP #### [facility] [address] [place] [address] [address] Glenys Holly ALT [Catalytic activity/Vol] 34 U/L Normal 14-59 [facility] Comment on above: Performed By: #### M G, CMP, TSH, T7, BNP #### [facility] [address] [place] [address] [address] Glenys Holly Anion gap [Moles/Vol] 8.8 mmol/L Normal [facility] Comment on above: Performed By: #### M G, CMP, TSH, T7, BNP #### [facility] [address] [place] [address] [address] Glenys Holly AST [Catalytic activity/Vol] 19 U/L Normal 15-37 [facility] Comment on above: Performed By: #### M G, CMP, TSH, T7, BNP #### [facility] [address] [place] [address] Dr. Glenys Holly Bilirubin [Mass/Vol] 0.2 mg/dL Normal 0.2-1.0 [facility] Comment on above: Performed By: #### M G, CMP, TSH, T7, BNP #### [facility] [address] [place] [address] [address] Glenys Holly Calcium [Mass/Vol] 10.6 mg/dL Critically high 8.5-10.1 [facility] Comment on above: Performed By: #### M G, CMP, TSH, T7, BNP #### [facility] [address] [place] [address] [address] Glenys Holly Chloride [Moles/Vol] 105 mmol/L Normal 98-107 [facility] Comment on above: Performed By: #### M G, CMP, TSH, T7, BNP #### [facility] [address] [place] [address] [address] Glenys Holly CO2 [Moles/Vol] 30.0 mmol/L Normal 21.0-32.0 [facility] Comment on above: Performed By: #### M G, CMP, TSH, T7, BNP #### [facility] [address] [place] [address] [address] Glenys Holly Creatinine [Mass/Vol] 0.86 mg/dL Normal 0.55-1.02 [facility] Comment on above: Performed By: #### M G, CMP, TSH, T7, BNP #### [facility] [address] [place] [address] [address] Glenys Holly EGFR-AF SINGAPOREAN >60 Normal >=60 [facility] Comment on above: Performed By: #### M G, CMP, TSH, T7, BNP #### [facility] [address] [place] [address] [address] Glenys Holly EGFR-NON AF SINGAPOREAN >60 Normal >=60 [facility] Comment on above: Performed By: #### M G, CMP, TSH, T7, BNP #### [facility] [address] [place] [address] Dr. Glenys Holly Globulin (S) [Mass/Vol] 3.5 g/dL Normal [facility] Comment on above: Performed By: #### M G, CMP, TSH, T7, BNP #### [facility] [address] [place] [address] Dr. Glenys Holly Glucose [Mass/Vol] 99 mg/dL Normal 74-[address] [facility] Comment on above: Performed By: #### M G, CMP, TSH, T7, BNP #### [facility] [address] [place] [address] Dr. Glenys Holly Potassium [Moles/Vol] 3.8 mmol/L Normal 3.5-5.1 [facility] Comment on above: Performed By: #### M G, CMP, TSH, T7, BNP #### [facility] [address] [place] [address] Dr. Glenys Holly Protein [Mass/Vol] 7.0 g/dL Normal 6.4-8.[address] [facility] Comment on above: Performed By: #### M G, CMP, TSH, T7, BNP #### [facility] [address] [place] [address] Dr. Glenys Holly Sodium [Moles/Vol] 140 mmol/L Normal 136-[address] [facility] Comment on above: Performed By: #### M G, CMP, TSH, T7, BNP #### [facility] [address] [place] [address] [address] Glenys Holly Urea nitrogen [Mass/Vol] 25.0 mg/dL Critically high 7.0-18.0 [facility] Comment on above: Performed By: #### M G, CMP, TSH, T7, BNP #### [facility] [address] [place] [address] [address] Glenys Holly Urea nitrogen/Creatinine [Mass ratio] 29.1 mg/mg Normal [facility] Comment on above: Performed By: #### M G, CMP, TSH, T7, BNP #### [facility] [address] [place] [address] [address] Glenys Holly TSHon 10-09-2022 TSH 1.720 uIU/mL Normal 0.358-3.740 [facility] Comment on above: Performed By: #### M G, CMP, TSH, T7, BNP #### [facility] [address] [place] [address] [address] Glenys Holly VITAMIN D 25 OHon 10-09-2022 VIT D 25-OH 89.3 ng/mL Normal [facility] Comment on above: Performed By: #### F ERR, IRON, VITAD ####[facility] [address] [place] [id number]. Glenys Holly VIT D RANGES SEE BELOW Normal [facility] Comment on above: Result Comment: <20 ng/mL Vit D deficient 20 - <30 ng/mL Vit D insufficient 30 - 100 ng/mL Vit D sufficient >100 ng/mL Potential Toxicity Performed By: #### F ERR, IRON, VITAD ####[facility] [address] [place] [id number]. Glenys Holly Office Visiton 07-19-2022 Follow-up visit [id number] Donato Khan 1945 F Date Provider Department Center 07/19/2022 Trey8STEPHENIE ORTEGA [facility] Family History Problem Relation Age of Onset Stroke Mother Stroke Brother Other Mother's Sister Coronary artery disease Mother's Sister Stroke Maternal Grandmother Family Status - Relation Status Age at Mother Brother Mother's Sister Maternal Grandmother Level of Service:74642 [place] OFFICE/OUTPATIENT ESTABLISHED LOW MDM 20-29 MIN Reason for Visit and Comments: Hyperlipidemia [182] Hypertension [383437] Normal [facility] NM STRESS/REST MULTIon 05-24 NM STRESS/REST MULTI Patient: Shana KHAN Exam Date: 05/24/2022 : 1945 Gender:F Ordering : DR RODRICK SAMS . Admission #: [id number] Family : Order #: [id number] CLICK HERE TO VIEW EXAM RADIOLOGY REPORT [...] M.D. on 05/24/2022 at 16:02 Normal [facility] BNPon 05-10-2022 Natriuretic peptide B (Bld) [Mass/Vol] 1305.0 pg/mL Normal <=1,800.0 [facility] Comment on above: Performed By: #### M G, CMP, TSH, T7, BNP #### [facility] [address] [place] [address] Dr. Glenys Holly CBC AUTO DIFFon 05-10-2022 BASO # 0.0 103/ul Normal 0.0-0.1 [facility] Comment on above: Performed By: #### M G, CMP, TSH, T7, BNP #### [facility] [address] [place] [address] Dr. Glenys Holly Basophils/100 WBC (Bld) 0.3 % Normal 0.2-2.0 [facility] Comment on above: Performed By: #### M G, CMP, TSH, T7, BNP #### [facility] [address] [place] [address] Dr. Glenys Holly EO # 0.0 103/ul Normal 0.0-0.7 [facility] Comment on above: Performed By: #### M G, CMP, TSH, T7, BNP #### [facility] [address] [place] [address] Dr. Glenys Holly Eosinophils/100 WBC (Bld) 0.1 % Critically low 0.9-7.0 [facility] Comment on above: Performed By: #### M G, CMP, TSH, T7, BNP #### [facility] [address] [place] [address] Dr. Glenys Holly Erythrocyte distribution width (RBC) [Ratio] 15.1 % Critically high 11.0-15.0 [facility] Comment on above: Performed By: #### M G, CMP, TSH, T7, BNP #### [facility] [address] [place] [address] Dr. Glenys Holly Hematocrit (Bld) [Volume fraction] 42.9 % Normal 36.0-48.0 [facility] Comment on above: Performed By: #### M G, CMP, TSH, T7, BNP #### [facility] [address] [place] [address] Dr. Glenys Holly Hemoglobin (Bld) [Mass/Vol] 14.6 g/dL Normal 12.0-16.0 [facility] Comment on above: Performed By: #### M G, CMP, TSH, T7, BNP #### [facility] [address] [place] [address] Dr. Glenys Holly IG # 0.05 10e3/ul Critically high 0.00-0.03 [facility] Comment on above: Performed By: #### M G, CMP, TSH, T7, BNP #### [facility] [address] [place] [address] Dr. Glenys Holly IG % 0.7 % Critically high 0.0-0.5 [facility] Comment on above: Performed By: #### M G, CMP, TSH, T7, BNP #### [facility] [address] [place] [address] Dr. Glenys Holly LYMPH # 1.6 103/ul Normal 1.2-3.8 [facility] Comment on above: Performed By: #### M G, CMP, TSH, T7, BNP #### [facility] [address] [place] [address] Dr. Glenys Holly Lymphocytes/100 WBC (Bld) 20.4 % Critically low 20.5-60.0 [facility] Comment on above: Performed By: #### M G, CMP, TSH, T7, BNP #### [facility] [address] [place] [address] Dr. Glenys Holly MANUAL DIFF REQ NO Normal [facility] Comment on above: Performed By: #### M G, CMP, TSH, T7, BNP #### [facility] [address] [place] [address] Dr. Glenys Holly MCH (RBC) [Entitic mass] 29.9 pg Normal 26.7-34.0 [facility] Comment on above: Performed By: #### M G, CMP, TSH, T7, BNP #### [facility] [address] [place] [address] Dr. Glenys Holly MCHC (RBC) [Mass/Vol] 34.0 g/dL Normal 29.9-35.2 [facility] Comment on above: Performed By: #### M G, CMP, TSH, T7, BNP #### [facility] [address] [place] [address] Dr. Glenys Holly MCV (RBC) [Entitic vol] 87.9 fL Normal 81.0-99.0 [facility] Comment on above: Performed By: #### M G, CMP, TSH, T7, BNP #### [facility] [address] [place] [address] Dr. Glenys Holly MONO # 0.7 103/ul Normal 0.3-0.8 [facility] Comment on above: Performed By: #### M G, CMP, TSH, T7, BNP #### [facility] [address] [place] [address] Dr. Glenys Holyl Monocytes/100 WBC (Bld) 9.5 % Normal 1.7-12.0 [facility] Comment on above: Performed By: #### M G, CMP, TSH, T7, BNP #### [facility] [address] [place] [address] Dr. Glenys Holly NEUT # 5.2 103/ul Normal 1.4-6.5 [facility] Comment on above: Performed By: #### M G, CMP, TSH, T7, BNP #### [facility] [address] [place] [address] Dr. Glenys Holly Neutrophils/100 WBC (Bld) 69.0 % Normal 43.0-75.0 [facility] Comment on above: Performed By: #### M G, CMP, TSH, T7, BNP #### [facility] [address] [place] [address] Dr. Glenys Holly Platelet mean volume (Bld) [Entitic vol] 11.2 fL Normal 9.5-13.5 [facility] Comment on above: Performed By: #### M G, CMP, TSH, T7, BNP #### [facility] [address] [place] [address] Dr. Glenys Holly PLT 349 103/ul Normal 150-450 [facility] Comment on above: Performed By: #### M G, CMP, TSH, T7, BNP #### [facility] [address] [place] [address] Dr. Glenys Holly RBC 4.88 106/ul Normal 4.20-5.40 [facility] Comment on above: Performed By: #### M G, CMP, TSH, T7, BNP #### [facility] [address] [place] [address] [address] Glenys Holly WBC 7.6 103/ul Normal 4.0-11.0 [facility] Comment on above: Performed By: #### M G, CMP, TSH, T7, BNP #### [facility] [address] [place] [address] [address] Glenys Holly PROF 14(COMP METB)on 022 Albumin [Mass/Vol] 3.3 g/dL Critically low 3.4-5.0 [facility] Comment on above: Performed By: #### H STROPN, BNP, CMP ####[facility] [address] [place] [address]DrRatna Holly Albumin/Globulin [Mass ratio] 1.1 {ratio} Normal [facility] Comment on above: Performed By: #### H STROPN, BNP, CMP ####[facility] [address] [place] [address]DrRatna Holly ALP [Catalytic activity/Vol] 78 U/L Normal 46-116 [facility] Comment on above: Performed By: #### H STROPN, BNP, CMP ####[facility] [address] [place] [address]DrRatna Holly ALT [Catalytic activity/Vol] 10 U/L Critically low 14-59 [facility] Comment on above: Performed By: #### H STROPN, BNP, CMP ####[facility] [address] [place] [address]DrRatna Holly Anion gap [Moles/Vol] 11.2 mmol/L Normal [facility] Comment on above: Performed By: #### H STROPN, BNP, CMP ####[facility] [address] [place] [address]DrRatna Holly AST [Catalytic activity/Vol] 15 U/L Normal 15-37 [facility] Comment on above: Performed By: #### H STROPN, BNP, CMP ####[facility] [address] [place] [address]Dr. Glenys Holly Bilirubin [Mass/Vol] 0.4 mg/dL Normal 0.2-1.0 [facility] Comment on above: Performed By: #### H STROPN, BNP, CMP ####[facility] [address] [place] [address]Dr. Glenys Holly Calcium [Mass/Vol] 8.9 mg/dL Normal 8.5-10.1 [facility] Comment on above: Performed By: #### H STROPN, BNP, CMP ####[facility] [address] [place], [place] [address]Dr. Glenys Holly Chloride [Moles/Vol] 98 mmol/L Normal 98-107 [facility] Comment on above: Performed By: #### H STROPN, BNP, CMP ####[facility] [address] [place], [place] [address]Dr. Glenys Holly CO2 [Moles/Vol] 31.1 mmol/L Normal 21.0-32.0 [facility] Comment on above: Performed By: #### H STROPN, BNP, CMP ####[facility] [address] [place], [place] [address]Dr. Glenys Holly Creatinine [Mass/Vol] 1.15 mg/dL Critically high 0.55-1.02 [facility] Comment on above: Performed By: #### H STROPN, BNP, CMP ####[facility] [address] [place], [place] [address]Dr. Glenys Holly EGFR-AF SINGAPOREAN 56 mL/min/1.73m2 Critically low >=60 [facility] Comment on above: Performed By: #### H STROPN, BNP, CMP ####[facility] [address] [place], [place] [address]Dr. Glenys Holly EGFR-NON AF SINGAPOREAN 46 mL/min/1.73m2 Critically low >=60 [facility] Comment on above: Performed By: #### H STROPN, BNP, CMP ####[facility] [address] [place] [address]Dr. Glenys Holly Globulin (S) [Mass/Vol] 3.0 g/dL Normal [facility] Comment on above: Performed By: #### H STROPN, BNP, CMP ####[facility] [address] [place] [address]Dr. Glenys Holly Glucose [Mass/Vol] 107 mg/dL Critically high 74-106 [facility] Comment on above: Performed By: #### H STROPN, BNP, CMP ####[facility] [address] [place] [address]Dr. Glenys Holly Potassium [Moles/Vol] 3.3 mmol/L Critically low 3.5-5.1 [facility] Comment on above: Performed By: #### H STROPN, BNP, CMP ####[facility] [address] [place] [address]Dr. Glenys Holly Protein [Mass/Vol] 6.3 g/dL Critically low 6.4-8.2 [facility] Comment on above: Performed By: #### H STROPN, BNP, CMP ####[facility] [address] [place], [place] [address]Dr. Glenys Holly Sodium [Moles/Vol] 137 mmol/L Normal 136-145 [facility] Comment on above: Performed By: #### H STROPN, BNP, CMP ####[facility] [address] [place] [address]Dr. Glenys Holly Urea nitrogen [Mass/Vol] 29.0 mg/dL Critically high 7.0-18.0 [facility] Comment on above: Performed By: #### H STROPN, BNP, CMP ####[facility] [address] [place] [address]Dr. Glenys Holly Urea nitrogen/Creatinine [Mass ratio] 25.2 mg/mg [facility] Comment on above: Performed By: #### H STROPN, BNP, CMP ####[facility] [address] [place] [address]Dr. Glenys Holly TROPONIN, HIGH SENSITIVITYon 05-10-2022 HSTROP 50.5 pg/mL Normal 4.0-51.3 [facility] Comment on above: Result Comment: CUT- OFF POINTS HAVE BEEN ESTABLISHED BASED ON THE FOURTH UNIVERSAL DEFINITIONS OF MYOCARDIAL INFARCTION. THE UPPER REFERENCE LIMIT (URL) OF TROPONIN, DEFINED THE 99TH PERCENTILE OF cTnI DISTRIBUTION IN A REFERENCE POPULATION, HAS BEEN CONFIRMED THE DECISION THRESHOLD FOR AR DIAGNOSIS. Performed By: #### H STROPN, BNP, CMP ####[facility] [address] [place], [place] [address]AnDr. Glenys Holly XR CHEST 2 Von 05-10-2022 [...] RAMIRO SPENCER Date: 2022-05-10 08:10 Normal [facility] BNPon 05-09-2022 Natriuretic peptide B (Bld) [Mass/Vol] 1975.0 pg/mL Critically high <=1,800.0 [facility] Comment on above: Performed By: #### M G, CMP, TSH, T7, BNP #### [facility] [address] [place], [place] [address] Dr. Glenys Holly CBC AUTO DIFFon 05-09-2022 BASO # 0.0 103/ul Normal 0.0-0.1 [facility] Comment on above: Performed By: #### M G, CMP, TSH, T7, BNP #### [facility] [address] [place], [place] [address] Dr. Glenys Holly Basophils/100 WBC (Bld) 0.4 % Normal 0.2-2.0 [facility] Comment on above: Performed By: #### M G, CMP, TSH, T7, BNP #### [facility] [address] [place] [address] Dr. Glenys Holly EO # 0.0 103/ul Normal 0.0-0.7 [facility] Comment on above: Performed By: #### M G, CMP, TSH, T7, BNP #### [facility] [address] [place] [address] Dr. Glenys Hloly Eosinophils/100 WBC (Bld) 0.0 % Critically low 0.9-7.0 [facility] Comment on above: Performed By: #### M G, CMP, TSH, T7, BNP #### [facility] [address] [place] [address] Dr. Glenys Holly Erythrocyte distribution width (RBC) [Ratio] 15.2 % Critically high 11.0-15.0 [facility] Comment on above: Performed By: #### M G, CMP, TSH, T7, BNP #### [facility] [address] [place] [address] Dr. Glenys Holly Hematocrit (Bld) [Volume fraction] 41.7 % Normal 36.0-48.0 [facility] Comment on above: Performed By: #### M G, CMP, TSH, T7, BNP #### [facility] [address] [place] [address] Dr. Glenys Holly Hemoglobin (Bld) [Mass/Vol] 14.1 g/dL Normal 12.0-16.0 [facility] Comment on above: Performed By: #### M G, CMP, TSH, T7, BNP #### [facility] [address] [place] [address] Dr. Glenys Holly IG # 0.12 10e3/ul Critically high 0.00-0.03 [facility] Comment on above: Performed By: #### M G, CMP, TSH, T7, BNP #### [facility] [address] [place] [address] Dr. Glenys Holly IG % 1.2 % Critically high 0.0-0.5 [facility] Comment on above: Performed By: #### M G, CMP, TSH, T7, BNP #### [facility] [address] [place] [address] Dr. Glenys Holly LYMPH # 1.6 103/ul Normal 1.2-3.8 [facility] Comment on above: Performed By: #### M G, CMP, TSH, T7, BNP #### [facility] [address] [place] [address] Dr. Glenys Holly Lymphocytes/100 WBC (Bld) 16.0 % Critically low 20.5-60.0 [facility] Comment on above: Performed By: #### M G, CMP, TSH, T7, BNP #### [facility] [address] [place] [address] Dr. Glenys Holly MANUAL DIFF REQ NO Normal [facility] Comment on above: Performed By: #### M G, CMP, TSH, T7, BNP #### [facility] [address] [place] [address] Dr. Glenys Holly MCH (RBC) [Entitic mass] 30.0 pg Normal 26.7-34.0 [facility] Comment on above: Performed By: #### M G, CMP, TSH, T7, BNP #### [facility] [address] [place] [address] Dr. Glenys Holly MCHC (RBC) [Mass/Vol] 33.8 g/dL Normal 29.9-35.2 [facility] Comment on above: Performed By: #### M G, CMP, TSH, T7, BNP #### [facility] [address] [place] [address] Dr. Glenys Holly MCV (RBC) [Entitic vol] 88.7 fL Normal 81.0-99.0 [facility] Comment on above: Performed By: #### M G, CMP, TSH, T7, BNP #### [facility] [address] [place] [address] Dr. Glenys Holly MONO # 1.3 103/ul Critically high 0.3-0.8 [facility] Comment on above: Performed By: #### M G, CMP, TSH, T7, BNP #### [facility] [address] [place] [address] Dr. Glenys Holly Monocytes/100 WBC (Bld) 13.2 % Critically high 1.7-12.0 [facility] Comment on above: Performed By: #### M G, CMP, TSH, T7, BNP #### [facility] [address] [place] [address] [address] Glenys Holly NEUT # 6.8 103/ul Critically high 1.4-6.5 [facility] Comment on above: Performed By: #### M G, CMP, TSH, T7, BNP #### [facility] [address] [place] [address] Dr. Glenys Holly Neutrophils/100 WBC (Bld) 69.2 % Normal 43.0-75.0 [facility] Comment on above: Performed By: #### M G, CMP, TSH, T7, BNP #### [facility] [address] [place] [address] Dr. Glenys Holly Platelet mean volume (Bld) [Entitic vol] 11.6 fL Normal 9.5-13.5 [facility] Comment on above: Performed By: #### M G, CMP, TSH, T7, BNP #### [facility] [address] [place] [address] Dr. Glenys Holly PLT 329 103/ul Normal 150-450 [facility] Comment on above: Performed By: #### M G, CMP, TSH, T7, BNP #### [facility] [address] [place] [address] Dr. Glenys Holly RBC 4.70 106/ul Normal 4.20-5.40 [facility] Comment on above: Performed By: #### M G, CMP, TSH, T7, BNP #### [facility] [address] [place] [address] Dr. Glenys Holly WBC 9.9 103/ul Normal 4.0-11.0 [facility] Comment on above: Performed By: #### M G, CMP, TSH, T7, BNP #### [facility] [address] [place] [address] Dr. Glenys Holly PROF 14(COMP METB)on 022 Albumin [Mass/Vol] 3.0 g/dL Critically low 3.4-5.0 [facility] Comment on above: Performed By: #### M G, CMP, TSH, T7, BNP #### [facility] [address] [place] [address] [address] Glenys Holly Albumin/Globulin [Mass ratio] 1.1 {ratio} Normal [facility] Comment on above: Performed By: #### M G, CMP, TSH, T7, BNP #### [facility] [address] [place] [address] [address] Glenys Holly ALP [Catalytic activity/Vol] 78 U/L Normal 46-116 [facility] Comment on above: Performed By: #### M G, CMP, TSH, T7, BNP #### [facility] [address] [place] [address] [address] Glenys Holly ALT [Catalytic activity/Vol] 10 U/L Critically low 14-59 [facility] Comment on above: Performed By: #### M G, CMP, TSH, T7, BNP #### [facility] [address] [place] [address] [address] Glenys Holly Anion gap [Moles/Vol] 9.6 mmol/L Normal [facility] Comment on above: Performed By: #### M G, CMP, TSH, T7, BNP #### [facility] [address] [place] [address] [address] Glenys Holly AST [Catalytic activity/Vol] 18 U/L Normal 15-37 [facility] Comment on above: Performed By: #### M G, CMP, TSH, T7, BNP #### [facility] [address] [place] [address] [address] Glenys Holly Bilirubin [Mass/Vol] 0.3 mg/dL Normal 0.2-1.0 [facility] Comment on above: Performed By: #### M G, CMP, TSH, T7, BNP #### [facility] [address] [place] [address] [address] Glenys Holly Calcium [Mass/Vol] 9.1 mg/dL Normal 8.5-10.1 [facility] Comment on above: Performed By: #### M G, CMP, TSH, T7, BNP #### [facility] [address] [place] [address] Dr. Glenys Holly Chloride [Moles/Vol] 102 mmol/L Normal 98-107 [facility] Comment on above: Performed By: #### M G, CMP, TSH, T7, BNP #### [facility] [address] [place] [address] Dr. Glenys Holly CO2 [Moles/Vol] 30.3 mmol/L Normal 21.0-32.0 [facility] Comment on above: Performed By: #### M G, CMP, TSH, T7, BNP #### [facility] [address] [place] [address] Dr. Glenys Holly Creatinine [Mass/Vol] 0.83 mg/dL Normal 0.55-1.02 [facility] Comment on above: Performed By: #### M G, CMP, TSH, T7, BNP #### [facility] [address] [place] [address] Dr. Glenys Holly EGFR-AF [place]AN >60 Normal >=60 [facility] Comment on above: Performed By: #### M G, CMP, TSH, T7, BNP #### [facility] [address] [place] [address] Dr. Glenys Holly EGFR-NON AF [place]AN >60 Normal >=60 [facility] Comment on above: Performed By: #### M G, CMP, TSH, T7, BNP #### [facility] [address] [place] [address] Dr. Glenys Holly Globulin (S) [Mass/Vol] 2.8 g/dL Normal [facility] Comment on above: Performed By: #### M G, CMP, TSH, T7, BNP #### [facility] [address] [place] [address] Dr. Glenys Holly Glucose [Mass/Vol] 105 mg/dL Normal 74-[address] [facility] Comment on above: Performed By: #### M G, CMP, TSH, T7, BNP #### [facility] [address] [place] [address] [address] Glenys Holly Potassium [Moles/Vol] 2.9 mmol/L Critically low 3.5-5.1 [facility] Comment on above: Performed By: #### M G, CMP, TSH, T7, BNP #### [facility] [address] [place] [address] [address] Glenys Holly Protein [Mass/Vol] 5.8 g/dL Critically low 6.4-8.2 [facility] Comment on above: Performed By: #### M G, CMP, TSH, T7, BNP #### [facility] [address] [place] [address] [address] Glenys Holly Sodium [Moles/Vol] 138 mmol/L Normal 136-145 [facility] Comment on above: Performed By: #### M G, CMP, TSH, T7, BNP #### [facility] [address] [place] [address] [address] Glenys Holly Urea nitrogen [Mass/Vol] 21.0 mg/dL Critically high 7.0-18.0 [facility] Comment on above: Performed By: #### M G, CMP, TSH, T7, BNP #### [facility] [address] [place] [address] [address] Glenys Holly Urea nitrogen/Creatinine [Mass ratio] 25.3 mg/mg Normal [facility] Comment on above: Performed By: #### M G, CMP, TSH, T7, BNP #### [facility] [address] [place] [address] [address] Glenys Holly TROPONIN, HIGH SENSITIVITYon 05-09-2022 HSTROP 49.8 pg/mL Normal 4.0-51.3 [facility] Comment on above: Result Comment: CUT- OFF POINTS HAVE BEEN ESTABLISHED BASED ON THE FOURTH UNIVERSAL DEFINITIONS OF MYOCARDIAL INFARCTION. THE UPPER REFERENCE LIMIT (URL) OF TROPONIN, DEFINED THE 99TH PERCENTILE OF cTnI DISTRIBUTION IN A REFERENCE POPULATION, HAS BEEN CONFIRMED THE DECISION THRESHOLD FOR AR DIAGNOSIS. Performed By: #### M G, CMP, TSH, T7, BNP #### [facility] [address] [place] [address] [address] Glenys Holly BNPon 05-08-2022 Natriuretic peptide B (Bld) [Mass/Vol] 2723.0 pg/mL Critically high <=1,800.0 [facility] Comment on above: Performed By: #### C MP, HSTROPN, BNP ####[facility] [address] [place] [address]Dr. Glenys Holly CBC AUTO DIFFon 05-08-2022 BASO # 0.0 103/ul Normal 0.0-0.1 [facility] Comment on above: Performed By: #### M G, CMP, TSH, T7, BNP #### [facility] [address] [place] [address] [address] Glenys Holly Basophils/100 WBC (Bld) 0.2 % Normal 0.2-2.0 [facility] Comment on above: Performed By: #### M G, CMP, TSH, T7, BNP #### [facility] [address] [place] [address] Dr. Glenys Holly EO # 0.0 103/ul Normal 0.0-0.7 [facility] Comment on above: Performed By: #### M G, CMP, TSH, T7, BNP #### [facility] [address] [place] [address] [address] Glenys Holly Eosinophils/100 WBC (Bld) 0.1 % Critically low 0.9-7.0 [facility] Comment on above: Performed By: #### M G, CMP, TSH, T7, BNP #### [facility] [address] [place] [address] Dr. Glenys Holly Erythrocyte distribution width (RBC) [Ratio] 15.9 % Critically high 11.0-15.0 [facility] Comment on above: Performed By: #### M G, CMP, TSH, T7, BNP #### [facility] [address] [place] [address] Dr. Glenys Holly Hematocrit (Bld) [Volume fraction] 38.0 % Normal 36.0-48.0 [facility] Comment on above: Performed By: #### M G, CMP, TSH, T7, BNP #### [facility] [address] [place] [address] Dr. Glenys Holly Hemoglobin (Bld) [Mass/Vol] 12.5 g/dL Normal 12.0-16.0 [facility] Comment on above: Performed By: #### M G, CMP, TSH, T7, BNP #### [facility] [address] [place] [address] Dr. Glenys Holly IG # 0.17 10e3/ul Critically high 0.00-0.03 [facility] Comment on above: Performed By: #### M G, CMP, TSH, T7, BNP #### [facility] [address] [place] [address] Dr. Glenys Holly IG % 1.1 % Critically high 0.0-0.5 [facility] Comment on above: Performed By: #### M G, CMP, TSH, T7, BNP #### [facility] [address] [place] [address] Dr. Glenys Holly LYMPH # 1.0 103/ul Critically low 1.2-3.8 [facility] Comment on above: Performed By: #### M G, CMP, TSH, T7, BNP #### [facility] [address] [place] [address] Dr. Glenys Holly Lymphocytes/100 WBC (Bld) 6.2 % Critically low 20.5-60.0 [facility] Comment on above: Performed By: #### M G, CMP, TSH, T7, BNP #### [facility] [address] [place] [address] Dr. Glenys Holly MANUAL DIFF REQ NO Normal [facility] Comment on above: Performed By: #### M G, CMP, TSH, T7, BNP #### [facility] [address] [place] [address] Dr. Glenys Holly MCH (RBC) [Entitic mass] 30.1 pg Normal 26.7-34.0 [facility] Comment on above: Performed By: #### M G, CMP, TSH, T7, BNP #### [facility] [address] [place] [address] Dr. Glenys Holly MCHC (RBC) [Mass/Vol] 32.9 g/dL Normal 29.9-35.2 [facility] Comment on above: Performed By: #### M G, CMP, TSH, T7, BNP #### [facility] [address] [place] [address] Dr. Glenys Holly MCV (RBC) [Entitic vol] 91.6 fL Normal 81.0-99.0 [facility] Comment on above: Performed By: #### M G, CMP, TSH, T7, BNP #### [facility] [address] [place] [address] Dr. Glenys Holly MONO # 0.8 103/ul Normal 0.3-0.8 [facility] Comment on above: Performed By: #### M G, CMP, TSH, T7, BNP #### [facility] [address] [place] [address] Dr. Glenys Holly Monocytes/100 WBC (Bld) 5.2 % Normal 1.7-12.0 [facility] Comment on above: Performed By: #### M G, CMP, TSH, T7, BNP #### [facility] [address] [place] [address] Dr. Glenys Holly NEUT # 14.0 103/ul Critically high 1.4-6.5 [facility] Comment on above: Performed By: #### M G, CMP, TSH, T7, BNP #### [facility] [address] [place] [address] Dr. Glenys Holly Neutrophils/100 WBC (Bld) 87.2 % Critically high 43.0-75.0 [facility] Comment on above: Performed By: #### M G, CMP, TSH, T7, BNP #### [facility] [address] [place] [address] Dr. Glensy Holly Platelet mean volume (Bld) [Entitic vol] 11.7 fL Normal 9.5-13.5 [facility] Comment on above: Performed By: #### M G, CMP, TSH, T7, BNP #### [facility] [address] [place] [address] Dr. Glenys Holly PLT 285 103/ul Normal 150-450 [facility] Comment on above: Performed By: #### M G, CMP, TSH, T7, BNP #### [facility] [address] [place] [address] [address] Glenys Holly RBC 4.15 106/ul Critically low 4.20-5.40 [facility] Comment on above: Performed By: #### M G, CMP, TSH, T7, BNP #### [facility] [address] [place] [address] [address] Glenys Holly WBC 16.0 103/ul Critically high 4.0-11.0 [facility] Comment on above: Performed By: #### M G, CMP, TSH, T7, BNP #### [facility] [address] [place] [address] [address] Glenys Holly PROF 14(COMP METB)on 022 Albumin [Mass/Vol] 2.7 g/dL Critically low 3.4-5.0 [facility] Comment on above: Performed By: #### C MP, HSTROPN, BNP #### [facility] [address] [place] [address] [address] Glenys Holly Albumin/Globulin [Mass ratio] 1.0 {ratio} Normal [facility] Comment on above: Performed By: #### C MP, HSTROPN, BNP #### [facility] [address] [place] [address] [address] Glenys Holly ALP [Catalytic activity/Vol] 73 U/L Normal 46-116 [facility] Comment on above: Performed By: #### C MP, HSTROPN, BNP #### [facility] [address] [place] [address] [address] Glenys Holly ALT [Catalytic activity/Vol] 11 U/L Critically low 14-59 [facility] Comment on above: Performed By: #### C MP, HSTROPN, BNP #### [facility] [address] [place] [address] [address] Glenys Holly Anion gap [Moles/Vol] 10.5 mmol/L Normal [facility] Comment on above: Performed By: #### C MP, HSTROPN, BNP #### [facility] [address] [place] [address] Dr. Glenys Holly AST [Catalytic activity/Vol] 21 U/L Normal 15-37 [facility] Comment on above: Performed By: #### C MP, HSTROPN, BNP #### [facility] [address] [place] [address] Dr. Glenys Holly Bilirubin [Mass/Vol] 0.3 mg/dL Normal 0.2-1.0 [facility] Comment on above: Performed By: #### C MP, HSTROPN, BNP #### [facility] [address] [place] [address] Dr. Glenys Holly Calcium [Mass/Vol] 8.6 mg/dL Normal 8.5-10.1 [facility] Comment on above: Performed By: #### C MP, HSTROPN, BNP #### [facility] [address] [place] [address] Dr. Glenys Holly Chloride [Moles/Vol] 106 mmol/L Normal 98-107 [facility] Comment on above: Performed By: #### C MP, HSTROPN, BNP #### [facility] [address] [place] [address] Dr. Glenys Holly CO2 [Moles/Vol] 29.0 mmol/L Normal 21.0-32.0 [facility] Comment on above: Performed By: #### C MP, HSTROPN, BNP #### [facility] [address] [place] [address] Dr. Glenys Holly Creatinine [Mass/Vol] 0.88 mg/dL Normal 0.55-1.02 [facility] Comment on above: Performed By: #### C MP, HSTROPN, BNP #### [facility] [address] [place] [address] Dr. Glenys Holly EGFR-AF S[place]AN >60 Normal >=60 [facility] Comment on above: Performed By: #### C MP, HSTROPN, BNP #### [facility] [address] [place] [address] [address] Glenys Holly EGFR-NON AF [place]AN >60 Normal >=60 [facility] Comment on above: Performed By: #### C MP, HSTROPN, BNP #### [facility] [address] [place] [address] [address] Glenys Holly Globulin (S) [Mass/Vol] 2.6 g/dL Normal [facility] Comment on above: Performed By: #### C MP, HSTROPN, BNP #### [facility] [address] [place] [address] [address] Glenys Holly Glucose [Mass/Vol] 116 mg/dL Critically high 74-106 [facility] Comment on above: Performed By: #### C MP, HSTROPN, BNP #### [facility] [address] [place] [address] Dr. Glenys Holly Potassium [Moles/Vol] 3.5 mmol/L Normal 3.5-5.1 [facility] Comment on above: Performed By: #### C MP, HSTROPN, BNP #### [facility] [address] [place] [address] [address] Glenys Holly Protein [Mass/Vol] 5.3 g/dL Critically low 6.4-8.2 [facility] Comment on above: Performed By: #### C MP, HSTROPN, BNP #### [facility] [address] [place] [address] [address] Glenys Holly Sodium [Moles/Vol] 142 mmol/L Normal 136-145 [facility] Comment on above: Performed By: #### C MP, HSTROPN, BNP #### [facility] [address] [place] [address] Dr. Glenys Holly Urea nitrogen [Mass/Vol] 23.0 mg/dL Critically high 7.0-18.0 [facility] Comment on above: Performed By: #### C MP, HSTROPN, BNP #### [facility] [address] [place] [address] [address] Glenys Holly Urea nitrogen/Creatinine [Mass ratio] 26.1 mg/mg Normal [facility] Comment on above: Performed By: #### C MP, HSTROPN, BNP #### [facility] [address] [place] [address] Dr. Glenys Holly TROPONIN, HIGH SENSITIVITYon 05-08-2022 HSTROP 60.8 pg/mL Critically high 4.0-51.3 [facility] Comment on above: Result Comment: CUT- OFF POINTS HAVE BEEN ESTABLISHED BASED ON THE FOURTH UNIVERSAL DEFINITIONS OF MYOCARDIAL INFARCTION. THE UPPER REFERENCE LIMIT (URL) OF TROPONIN, DEFINED THE 99TH PERCENTILE OF cTnI DISTRIBUTION IN A REFERENCE POPULATION, HAS BEEN CONFIRMED THE DECISION THRESHOLD FOR AR DIAGNOSIS. Performed By: #### C MP, HSTROPN, BNP ####[facility] [address] [place] [address]Dr. Glenys Holly BNPon 05-07-2022 Natriuretic peptide B (Bld) [Mass/Vol] 1476.0 pg/mL Normal <=1,800.0 [facility] Comment on above: Performed By: #### C MP, HSTROPN, BNP ####[facility] [address] [place] [address]Dr. Glenys Holly CBC AUTO DIFFon 05-07-2022 BASO # 0.0 103/ul Normal 0.0-0.1 [facility] Comment on above: Performed By: #### M G, CMP, TSH, T7, BNP #### [facility] [address] [place] [address] Dr. Glenys Holly Basophils/100 WBC (Bld) 0.1 % Critically low 0.2-2.0 [facility] Comment on above: Performed By: #### M G, CMP, TSH, T7, BNP #### [facility] [facility] [address] [place] [address] Dr. Glenys Holly EO # 0.0 103/ul Normal 0.0-0.7 [facility] Comment on above: Performed By: #### M G, CMP, TSH, T7, BNP #### [facility] [address] [place] [address] Dr. Glenys Holly Eosinophils/100 WBC (Bld) 0.0 % Critically low 0.9-7.0 [facility] Comment on above: Performed By: #### M G, CMP, TSH, T7, BNP #### [facility] [address] [place] [address] Dr. Glenys Holly Erythrocyte distribution width (RBC) [Ratio] 16.3 % Critically high 11.0-15.0 [facility] Comment on above: Performed By: #### M G, CMP, TSH, T7, BNP #### [facility] [address] [place] [address] Dr. Glenys Holly Hematocrit (Bld) [Volume fraction] 34.1 % Critically low 36.0-48.0 [facility] Comment on above: Performed By: #### M G, CMP, TSH, T7, BNP #### [facility] [address] [place] [address] Dr. Glenys Holly Hemoglobin (Bld) [Mass/Vol] 11.2 g/dL Critically low 12.0-16.0 [facility] Comment on above: Performed By: #### M G, CMP, TSH, T7, BNP #### [facility] [address] [place] [address] Dr. Glenys Holly IG # 0.22 10e3/ul Critically high 0.00-0.03 [facility] Comment on above: Performed By: #### M G, CMP, TSH, T7, BNP #### [facility] [address] [place] [address] Dr. Glenys Holly IG % 1.0 % Critically high 0.0-0.5 [facility] Comment on above: Performed By: #### M G, CMP, TSH, T7, BNP #### [facility] [address] [place] [address] Dr. Glenys Holly LYMPH # 1.3 103/ul Normal 1.2-3.8 [facility] Comment on above: Performed By: #### M G, CMP, TSH, T7, BNP #### [facility] [address] [place] [address] Dr. Glenys Holly Lymphocytes/100 WBC (Bld) 6.0 % Critically low 20.5-60.0 [facility] Comment on above: Performed By: #### M G, CMP, TSH, T7, BNP #### [facility] [address] [place] [address] Dr. Glenys Holly MANUAL DIFF REQ NO Normal [facility] Comment on above: Performed By: #### M G, CMP, TSH, T7, BNP #### [facility] [address] [place] [address] Dr. Glenys Holly MCH (RBC) [Entitic mass] 30.7 pg Normal 26.7-34.0 [facility] Comment on above: Performed By: #### M G, CMP, TSH, T7, BNP #### [facility] [address] [place] [address] Dr. Glenys Holly MCHC (RBC) [Mass/Vol] 32.8 g/dL Normal 29.9-35.2 [facility] Comment on above: Performed By: #### M G, CMP, TSH, T7, BNP #### [facility] [address] [place] [address] Dr. Glenys Holly MCV (RBC) [Entitic vol] 93.4 fL Normal 81.0-99.0 [facility] Comment on above: Performed By: #### M G, CMP, TSH, T7, BNP #### [facility] [address] [place] [address] Dr. Glenys Holly MONO # 1.1 103/ul Critically high 0.3-0.8 [facility] Comment on above: Performed By: #### M G, CMP, TSH, T7, BNP #### [facility] [address] [place] [address] Dr. Glenys Holly Monocytes/100 WBC (Bld) 4.8 % Normal 1.7-12.0 [facility] Comment on above: Performed By: #### M G, CMP, TSH, T7, BNP #### [facility] [address] [place] [address] Dr. Glenys Holly NEUT # 19.4 103/ul Critically high 1.4-6.5 [facility] Comment on above: Performed By: #### M G, CMP, TSH, T7, BNP #### [facility] [address] [address] [address] Glenys Holly Neutrophils/100 WBC (Bld) 88.1 % Critically high 43.0-75.0 [facility] Comment on above: Performed By: #### M G, CMP, TSH, T7, BNP #### [facility] [address] [address] [address] Glenys Holly Platelet mean volume (Bld) [Entitic vol] 11.6 fL Normal 9.5-13.5 [facility] Comment on above: Performed By: #### M G, CMP, TSH, T7, BNP #### [facility] [address] [address] [address] Glenys Holly PLT 309 103/ul Normal 150-450 [facility] Comment on above: Performed By: #### M G, CMP, TSH, T7, BNP #### [facility] [address] [address] [address] Glenys Holly RBC 3.65 106/ul Critically low 4.20-5.40 [facility] Comment on above: Performed By: #### M G, CMP, TSH, T7, BNP #### [facility] [address] [address] [address] Glenys Holly WBC 22.0 103/ul Critically high 4.0-11.0 [facility] Comment on above: Performed By: #### M G, CMP, TSH, T7, BNP #### [facility] [address] [address] [address] Glenys Holly PROF 14(COMP METB)on 022 Albumin [Mass/Vol] 2.5 g/dL Critically low 3.4-5.0 [facility] Comment on above: Performed By: #### C MP, HSTROPN, BNP ####[facility] [address] [address]Dr. Glenys Holly Albumin/Globulin [Mass ratio] 1.0 {ratio} Normal [facility] Comment on above: Performed By: #### C MP, HSTROPN, BNP ####[facility] [address] [place] [address]Dr. Glensy Holly ALP [Catalytic activity/Vol] 69 U/L Normal 46-116 [facility] Comment on above: Performed By: #### C MP, HSTROPN, BNP ####[facility] [address] [place] [address]Dr. Glenys Holly ALT [Catalytic activity/Vol] 12 U/L Critically low 14-59 [facility] Comment on above: Performed By: #### C MP, HSTROPN, BNP ####[facility] [address] [place], [place] [address]Dr. Glenys Holly Anion gap [Moles/Vol] 10.9 mmol/L Normal [facility] Comment on above: Performed By: #### C MP, HSTROPN, BNP ####[facility] [address] [place], [place] [address]Dr. Glenys Holly AST [Catalytic activity/Vol] 25 U/L Normal 15-37 [facility] Comment on above: Performed By: #### C MP, HSTROPN, BNP ####[facility] [address] [place], [place] [address]Dr. Glenys Holly Bilirubin [Mass/Vol] 0.1 mg/dL Critically low 0.2-1.0 [facility] Comment on above: Performed By: #### C MP, HSTROPN, BNP ####[facility] [address] [place], [place] [address]Dr. Glenys Holly Calcium [Mass/Vol] 9.1 mg/dL Normal 8.5-10.1 [facility] Comment on above: Performed By: #### C MP, HSTROPN, BNP ####[facility] [address] [place] [address]Dr. Glenys Holly Chloride [Moles/Vol] 110 mmol/L Critically high 98-107 [facility] Comment on above: Performed By: #### C MP, HSTROPN, BNP ####[facility] [address] [place] [address]Dr. Glenys Holly CO2 [Moles/Vol] 24.8 mmol/L Normal 21.0-32.0 [facility] Comment on above: Performed By: #### C MP, HSTROPN, BNP ####[facility] [address] [address]Dr. Glenys Holly Creatinine [Mass/Vol] 0.87 mg/dL Normal 0.55-1.02 [facility] Comment on above: Performed By: #### C MP, HSTROPN, BNP ####[facility] [address] [place], [place] [address]Dr. Glenys Holly EGFR-AF SINGAPOREAN >60 Normal >=60 [facility] Comment on above: Performed By: #### C MP, HSTROPN, BNP ####[facility] [address] [place], [place] [address]Dr. Glenys Holly EGFR-NON AF SINGAPOREAN >60 Normal >=60 [facility] Comment on above: Performed By: #### C MP, HSTROPN, BNP ####[facility] [address] [place], [place] [address]Dr. Glenys Holly Globulin (S) [Mass/Vol] 2.5 g/dL Normal [facility] Comment on above: Performed By: #### C MP, HSTROPN, BNP ####[facility] [address] [address]Dr. Glenys Holly Glucose [Mass/Vol] 128 mg/dL Critically high 74-106 [facility] Comment on above: Performed By: #### C MP, HSTROPN, BNP ####[facility] [address] [place], [place] [address]Dr. Glenys Holly Potassium [Moles/Vol] 4.7 mmol/L Normal 3.5-5.1 [facility] Comment on above: Performed By: #### C MP, HSTROPN, BNP ####[facility] [address] [place], [place] [address]Dr. Glenys Holly Protein [Mass/Vol] 5.0 g/dL Critically low 6.4-8.2 [facility] Comment on above: Performed By: #### C MP, HSTROPN, BNP ####[facility] [address] [place] [address]Dr. Glenys Holly Sodium [Moles/Vol] 141 mmol/L Normal 136-145 [facility] Comment on above: Performed By: #### C MP, HSTROPN, BNP ####[facility] [address] [place] [address]Dr. Glenys Holly Urea nitrogen [Mass/Vol] 28.0 mg/dL Critically high 7.0-18.0 [facility] Comment on above: Performed By: #### C MP, HSTROPN, BNP ####[facility] [address] [place] [address]Dr. Glenys Holly Urea nitrogen/Creatinine [Mass ratio] 32.2 mg/mg Normal [facility] Comment on above: Performed By: #### C MP, HSTROPN, BNP ####[facility] [address] [place] [address]Dr. Glenys Holly TROPONIN, HIGH SENSITIVITYon 05-07-2022 HSTROP 78.5 pg/mL Critically high 4.0-51.3 [facility] Comment on above: Result Comment: CUT- OFF POINTS HAVE BEEN ESTABLISHED BASED ON THE FOURTH UNIVERSAL DEFINITIONS OF MYOCARDIAL INFARCTION. THE UPPER REFERENCE LIMIT (URL) OF TROPONIN, DEFINED THE 99TH PERCENTILE OF cTnI DISTRIBUTION IN A REFERENCE POPULATION, HAS BEEN CONFIRMED THE DECISION THRESHOLD FOR AR DIAGNOSIS. Performed By: #### C MP, HSTROPN, BNP ####[facility] [address] [place] [address]Dr. Glenys Holly XR CHEST 2 Von 05-07-2022 [...] SUPA DEAN Date: 2022-05-07 10:34 Normal [facility] BNPon 05-06-2022 Natriuretic peptide B (Bld) [Mass/Vol] 1143.0 pg/mL Normal <=1,800.0 [facility] Comment on above: Performed By: #### C MP, BNP ####[facility] [address] [place] [address]Dr. Glenys Holly CBC AUTO DIFFon 05-06-2022 BASO # 0.0 103/ul Normal 0.0-0.1 [facility] Comment on above: Performed By: #### M G, CMP, TSH, T7, BNP #### [facility] [address] [address] [address] Glenys Holly Basophils/100 WBC (Bld) 0.1 % Critically low 0.2-2.0 [facility] Comment on above: Performed By: #### M G, CMP, TSH, T7, BNP #### [facility] [address] [address] [address] Glenys Holly EO # 0.0 103/ul Normal 0.0-0.7 [facility] Comment on above: Performed By: #### M G, CMP, TSH, T7, BNP #### [facility] [address] [address] [address] Glenys Holly Eosinophils/100 WBC (Bld) 0.0 % Critically low 0.9-7.0 [facility] Comment on above: Performed By: #### M G, CMP, TSH, T7, BNP #### [facility] [address] [address] [address] Glenys Holly Erythrocyte distribution width (RBC) [Ratio] 15.8 % Critically high 11.0-15.0 [facility] Comment on above: Performed By: #### M G, CMP, TSH, T7, BNP #### [facility] [address] [place] [address] Dr. Glenys Holly Hematocrit (Bld) [Volume fraction] 36.7 % Normal 36.0-48.0 [facility] Comment on above: Performed By: #### M G, CMP, TSH, T7, BNP #### [facility] [address] [place] [address] Dr. Glenys Holly Hemoglobin (Bld) [Mass/Vol] 12.3 g/dL Normal 12.0-16.0 [facility] Comment on above: Performed By: #### M G, CMP, TSH, T7, BNP #### [facility] [address] [place] [address] Dr. Glenys Holly IG # 0.10 10e3/ul Critically high 0.00-0.03 [facility] Comment on above: Performed By: #### M G, CMP, TSH, T7, BNP #### [facility] [address] [place] [address] Dr. Glenys Holly IG % 0.5 % Normal 0.0-0.5 [facility] Comment on above: Performed By: #### M G, CMP, TSH, T7, BNP #### [facility] [address] [place] [address] Dr. Glenys Holly LYMPH # 1.4 103/ul Normal 1.2-3.8 [facility] Comment on above: Performed By: #### M G, CMP, TSH, T7, BNP #### [facility] [address] [place] [address] Dr. Glenys Holly Lymphocytes/100 WBC (Bld) 7.2 % Critically low 20.5-60.0 [facility] Comment on above: Performed By: #### M G, CMP, TSH, T7, BNP #### [facility] [address] [place] [address] Dr. Glenys Holly MANUAL DIFF REQ NO Normal [facility] Comment on above: Performed By: #### M G, CMP, TSH, T7, BNP #### [facility] [address] [place] [address] Dr. Glenys Holly MCH (RBC) [Entitic mass] 30.9 pg Normal 26.7-34.0 [facility] Comment on above: Performed By: #### M G, CMP, TSH, T7, BNP #### [facility] [address] [place] [address] Dr. Glenys Holly MCHC (RBC) [Mass/Vol] 33.5 g/dL Normal 29.9-35.2 [facility] Comment on above: Performed By: #### M G, CMP, TSH, T7, BNP #### [facility] [address] [place] [address] Dr. Glenys Holly MCV (RBC) [Entitic vol] 92.2 fL Normal 81.0-99.0 [facility] Comment on above: Performed By: #### M G, CMP, TSH, T7, BNP #### [facility] [address] [place] [address] Dr. Glenys Holly MONO # 0.9 103/ul Critically high 0.3-0.8 [facility] Comment on above: Performed By: #### M G, CMP, TSH, T7, BNP #### [facility] [address] [place] [address] Dr. Glenys Holly Monocytes/100 WBC (Bld) 4.6 % Normal 1.7-12.0 [facility] Comment on above: Performed By: #### M G, CMP, TSH, T7, BNP #### [facility] [address] [place] [address] Dr. Glenys Holly NEUT # 17.4 103/ul Critically high 1.4-6.5 [facility] Comment on above: Performed By: #### M G, CMP, TSH, T7, BNP #### [facility] [address] [place] [address] Dr. Glenys Holly Neutrophils/100 WBC (Bld) 87.6 % Critically high 43.0-75.0 [facility] Comment on above: Performed By: #### M G, CMP, TSH, T7, BNP #### [facility] [address] [place] [address] Dr. Glenys Holly Platelet mean volume (Bld) [Entitic vol] 11.2 fL Normal 9.5-13.5 [facility] Comment on above: Performed By: #### M G, CMP, TSH, T7, BNP #### [facility] [address] [address] [address] Glenys Holly PLT 310 103/ul Normal 150-450 [facility] Comment on above: Performed By: #### M G, CMP, TSH, T7, BNP #### [facility] [address] [place] [address] Dr. Glenys Holly RBC 3.98 106/ul Critically low 4.20-5.40 [facility] Comment on above: Performed By: #### M G, CMP, TSH, T7, BNP #### [facility] [address] [place] [address] Dr. Glenys Holly WBC 19.8 103/ul Critically high 4.0-11.0 [facility] Comment on above: Performed By: #### M G, CMP, TSH, T7, BNP #### [facility] [address] [place] [address] Dr. Glenys Holly LACTATE/LACTIC ACIDon 2021 Lactate [Moles/Vol] 1.1 mmol/L Normal 0.4-1.9 [facility] Comment on above: Performed By: #### M G, CMP, TSH, T7, BNP #### [facility] [address] [place] [address] Dr. Glenys Holly POINT OF CARE GLUCOSEon 04-12 Glucose [Mass/Vol] 164 mg/dL Critically high 74-106 [facility] Comment on above: Performed By: #### M G, CMP, TSH, T7, BNP #### [facility] [address] [place] [address] Dr. Glenys Holly PROF 14(COMP METB)on 022 Albumin [Mass/Vol] 2.6 g/dL Critically low 3.4-5.0 Th [facility] Comment on above: Performed By: #### C MP, BNP ####[facility] [address] [address]Dr. Glenys Holly Albumin/Globulin [Mass ratio] 1.0 {ratio} Normal [facility] Comment on above: Performed By: #### C MP, BNP ####[facility] [address] [address]Dr. Glenys Holly ALP [Catalytic activity/Vol] 88 U/L Normal 46-116 [facility] Comment on above: Performed By: #### C MP, BNP ####[facility] [address] [place], [place] [address]Dr. Glenys Holly ALT [Catalytic activity/Vol] 1 U/L Critically low 14-59 [facility] Comment on above: Performed By: #### C MP, BNP ####[facility] [address] [place], [place] [address]Dr. Glenys Holly Anion gap [Moles/Vol] 9.9 mmol/L Normal [facility] Comment on above: Performed By: #### C MP, BNP ####[facility] [address] [place], [place] [address]Dr. Glenys Holly AST [Catalytic activity/Vol] 19 U/L Normal 15-37 [facility] Comment on above: Performed By: #### C MP, BNP ####[facility] [address] [place], [place] [address]Dr. Glenys Holly Bilirubin [Mass/Vol] 0.2 mg/dL Normal 0.2-1.0 [facility] Comment on above: Performed By: #### C MP, BNP ####[facility] [address] [place], [place] [address]Dr. Glenys Holly Calcium [Mass/Vol] 8.7 mg/dL Normal 8.5-10.1 [facility] Comment on above: Performed By: #### C MP, BNP ####[facility] [address] [place], [place] [address]Dr. Glenys Holly Chloride [Moles/Vol] 108 mmol/L Critically high 98-107 [facility] Comment on above: Performed By: #### C MP, BNP ####[facility] [address] [address]Dr. Karinaparmjit Holly CO2 [Moles/Vol] 25.2 mmol/L Normal 21.0-32.0 [facility] Comment on above: Performed By: #### C MP, BNP ####[facility] [address] [place], [place] [address]Dr. Glenys Holly Creatinine [Mass/Vol] 0.80 mg/dL Normal 0.55-1.02 [facility] Comment on above: Performed By: #### C MP, BNP ####[facility] [address] [place], [place] [address]Dr. Glenys Holly EGFR-AF S[place]OREAN >60 Normal >=60 [facility] Comment on above: Performed By: #### C MP, BNP ####[facility] [address] [place], [place] [address]Dr. Karinaparmjit Avni EGFR-NON AF SINGAPOREAN >60 Normal >=60 [facility] Comment on above: Performed By: #### C MP, BNP ####[facility] [address] [place], [place] [address]Dr. Glenys Holly Globulin (S) [Mass/Vol] 2.7 g/dL Normal [facility] Comment on above: Performed By: #### C MP, BNP ####[facility] [address] [place], [place] [address]Dr. Glenys Holly Glucose [Mass/Vol] 123 mg/dL Critically high 74-106 [facility] Comment on above: Performed By: #### C MP, BNP ####[facility] [address] [place], [place] [address]Dr. Glenys Holly Potassium [Moles/Vol] 4.1 mmol/L Normal 3.5-5.1 [facility] Comment on above: Performed By: #### C MP, BNP ####[facility] [address] [place], [place] [address]Dr. Glenys Holly Protein [Mass/Vol] 5.3 g/dL Critically low 6.4-8.2 [facility] Comment on above: Performed By: #### C MP, BNP ####[facility] [address] [place], [place] [address]Rx. Glenys Holly Sodium [Moles/Vol] 139 mmol/L Normal 136-145 [facility] Comment on above: Performed By: #### C MP, BNP ####[facility] [address] [place] [id number]. Glenys Holly Urea nitrogen [Mass/Vol] 22.0 mg/dL Critically high 7.0-18.0 [facility] Comment on above: Performed By: #### C MP, BNP ####[facility] [address] [place] [address]Dr. Glenys Holly Urea nitrogen/Creatinine [Mass ratio] 27.5 mg/mg Normal [facility] Comment on above: Performed By: #### C MP, BNP ####[facility] [id number]. Glenys Holly T3, TOTAL (TRIIODOTHYRONINE) on 05-06-2022 T3, TOTAL 69 ng/dL Critically low 71-180 [facility] Comment on above: Performed By: #### M G, CMP, TSH, T7, BNP #### [facility] [address] [place], [place] [address] Dr. Glenys Holly TROPONIN, HIGH SENSITIVITYon 05-06-2022 HSTROP 141.0 pg/mL Critically high 4.0-51.3 [facility] Comment on above: Result Comment: CUT- OFF POINTS HAVE BEEN ESTABLISHED BASED ON THE FOURTH UNIVERSAL DEFINITIONS OF MYOCARDIAL INFARCTION. THE UPPER REFERENCE LIMIT (URL) OF TROPONIN, DEFINED THE 99TH PERCENTILE OF cTnI DISTRIBUTION IN A REFERENCE POPULATION, HAS BEEN CONFIRMED THE DECISION THRESHOLD FOR AR DIAGNOSIS. Performed By: #### M G, CMP, TSH, T7, BNP #### [facility] [address] [place], [place] [address] Dr. Glenys Holly AMYLASEon 05-05-2022 Amylase [Catalytic activity/Vol] 26 U/L Normal 25-115 [facility] Comment on above: Performed By: #### M G, CMP, TSH, T7, BNP #### [facility] [address] [address] [address] Glenys Holly BNPon 05-05-2022 Natriuretic peptide B (Bld) [Mass/Vol] 811.0 pg/mL Normal <=1,800.0 [facility] Comment on above: Performed By: #### M G, CMP, TSH, T7, BNP #### [facility] [address] [address] [address] Glenys Holly CARDIAC ADEEL 3-6on 2 CK [Catalytic activity/Vol] 33 U/L Normal 26-192 [facility] Comment on above: Performed By: #### C MREP ####[facility] [address] [place] [address]Dr. Glenys Holly CK.MB [Mass/Vol] 1.13 ng/mL Normal <=3.60 [facility] Comment on above: Performed By: #### C MREP ####[facility] [address] [place] [address]Dr. Glenys Holly HSTROP 164.3 pg/mL Critically high 4.0-51.3 [facility] Comment on above: Result Comment: CUT- OFF POINTS HAVE BEEN ESTABLISHED BASED ON THE FOURTH UNIVERSAL DEFINITIONS OF MYOCARDIAL INFARCTION. THE UPPER REFERENCE LIMIT (URL) OF TROPONIN, DEFINED THE 99TH PERCENTILE OF cTnI DISTRIBUTION IN A REFERENCE POPULATION, HAS BEEN CONFIRMED THE DECISION THRESHOLD FOR AR DIAGNOSIS. Performed By: #### C MREP ####[facility] [address] [place] [address]Dr. Glenys Holly CK [Catalytic activity/Vol] 38 U/L Normal 26-192 [facility] Comment on above: Performed By: #### M G, CMP, TSH, T7, BNP #### [facility] [address] [address] [address] Glenys Holly CK.MB [Mass/Vol] 0.91 ng/mL Normal <=3.60 [facility] Comment on above: Performed By: #### M G, CMP, TSH, T7, BNP #### [facility] [address] [address] [address] Glenys Holly HSTROP 178.2 pg/mL Critically high 4.0-51.3 [facility] Comment on above: Result Comment: CUT- OFF POINTS HAVE BEEN ESTABLISHED BASED ON THE FOURTH UNIVERSAL DEFINITIONS OF MYOCARDIAL INFARCTION. THE UPPER REFERENCE LIMIT (URL) OF TROPONIN, DEFINED THE 99TH PERCENTILE OF cTnI DISTRIBUTION IN A REFERENCE POPULATION, HAS BEEN CONFIRMED THE DECISION THRESHOLD FOR AR DIAGNOSIS. Performed By: #### M G, CMP, TSH, T7, BNP #### [facility] [address] [place] [address] Dr. Glenys Holly CARDIAC ADEEL ADMITon 022 CK [Catalytic activity/Vol] 29 U/L Normal 26-192 [facility] Comment on above: Performed By: #### M G, CMP, TSH, T7, BNP #### [facility] [address] [place] [address] Dr. Glenys Holly CK.MB [Mass/Vol] 0.73 ng/mL Normal <=3.60 [facility] Comment on above: Performed By: #### M G, CMP, TSH, T7, BNP #### [facility] [address] [place] [address] Dr. Glenys Holly HSTROP 191.6 pg/mL Critically high 4.0-51.3 [facility] Comment on above: Result Comment: CUT- OFF POINTS HAVE BEEN ESTABLISHED BASED ON THE FOURTH UNIVERSAL DEFINITIONS OF MYOCARDIAL INFARCTION. THE UPPER REFERENCE LIMIT (URL) OF TROPONIN, DEFINED THE 99TH PERCENTILE OF cTnI DISTRIBUTION IN A REFERENCE POPULATION, HAS BEEN CONFIRMED THE DECISION THRESHOLD FOR AR DIAGNOSIS. Performed By: #### M G, CMP, TSH, T7, BNP #### [facility] [address] [place] [address] Dr. Glenys Holly NEO 79 ng/mL Normal 9-82 [facility] Comment on above: Performed By: #### M G, CMP, TSH, T7, BNP #### [facility] [address] [place] [address] Dr. Glenys Holly CBC W MANUAL DIFFon 05-05-20 ANISOCYTOSIS 1+ Normal [facility] Comment on above: Performed By: #### M G, CMP, TSH, T7, BNP #### [facility] [address] [place] [address] Dr. Glenys Holly ATYPICAL LYMPH # Normal [facility] Comment on above: Performed By: #### M G, CMP, TSH, T7, BNP #### [facility] [address] [place] [address] Dr. Glenys Holly ATYPICAL LYMPH % Normal [facility] Comment on above: Performed By: #### M G, CMP, TSH, T7, BNP #### [facility] [address] [place] [address] Dr. Glenys Holly BAND # 0.2 103/ul Normal 0.0-0.3 [facility] Comment on above: Performed By: #### M G, CMP, TSH, T7, BNP #### [facility] [address] [place] [address] Dr. Glenys Holly BAND % 1 % Normal 0-5 [facility] Comment on above: Performed By: #### M G, CMP, TSH, T7, BNP #### [facility] [address] [place] [address] Dr. Glenys Holly BASOM # 0.00 103/ul Normal 0.00-0.10 [facility] Comment on above: Performed By: #### M G, CMP, TSH, T7, BNP #### [facility] [address] [place] [address] Dr. Glenys Holly BASOM % 0.0 % Critically low 0.2-2.0 [facility] Comment on above: Performed By: #### M G, CMP, TSH, T7, BNP #### [facility] [address] [place] [address] Dr. Glenys Holly BLAST # Normal [facility] Comment on above: Performed By: #### M G, CMP, TSH, T7, BNP #### [facility] [address] [place] [address] Dr. Glenys Holly BLAST % Normal [facility] Comment on above: Performed By: #### M G, CMP, TSH, T7, BNP #### [facility] [address] [place] [address] Dr. Glenys Holly CORRECTED WBC Normal 4.0-11.0 [facility] Comment on above: Performed By: #### M G, CMP, TSH, T7, BNP #### [facility] [address] [place] [address] Dr. Glenys Holly EOS # 0.00 103/ul Normal 0.00-0.70 [facility] Comment on above: Performed By: #### M G, CMP, TSH, T7, BNP #### [facility] [address] [place] [address] Dr. Glenys Holly EOS% 0.0 % Critically low 0.9-7.0 [facility] Comment on above: Performed By: #### M G, CMP, TSH, T7, BNP #### [facility] [address] [place] [address] Dr. Glenys Holly HCT 41.5 % Normal 36.0-48.0 [facility] Comment on above: Performed By: #### M G, CMP, TSH, T7, BNP #### [facility] [address] [place] [address] Dr. Glenys Holly HGB 14.2 g/dl Normal 12.0-16.0 [facility] Comment on above: Performed By: #### M G, CMP, TSH, T7, BNP #### [facility] [address] [place] [address] Dr. Glenys Holly LYMPHM # 0.96 103/ul Critically low 1.20-3.80 [facility] Comment on above: Performed By: #### M G, CMP, TSH, T7, BNP #### [facility] [address] [place] [address] Dr. Glenys Holly LYMPHM% 6.0 % Critically low 20.5-60.0 [facility] Comment on above: Performed By: #### M G, CMP, TSH, T7, BNP #### [facility] [address] [place] [address] Dr. Glenys Holly MCH 31.0 pg Normal 26.7-34.0 [facility] Comment on above: Performed By: #### M G, CMP, TSH, T7, BNP #### [facility] [address] [address] [address] Glenys Holly MCHC 34.2 g/dl Normal 29.9-35.2 [facility] Comment on above: Performed By: #### M G, CMP, TSH, T7, BNP #### [facility] [address] [address] [address] Glenys Holly MCV 90.6 fL Normal 81.0-99.0 [facility] Comment on above: Performed By: #### M G, CMP, TSH, T7, BNP #### [facility] [address] [place] [address] Dr. Glenys Holly METAMYELOCYTE # Normal [facility] Comment on above: Performed By: #### M G, CMP, TSH, T7, BNP #### [facility] [address] [address] [address] Glenys Holly METAMYELOCYTE % Normal [facility] Comment on above: Performed By: #### M G, CMP, TSH, T7, BNP #### [facility] [address] [address] [address] Glenys Holly MONOM# 2.56 103/ul Critically high 0.30-0.80 [facility] Comment on above: Performed By: #### M G, CMP, TSH, T7, BNP #### [facility] [address] [address] [address] Glenys Holly MONOM% 16.0 % Critically high 1.7-12.0 [facility] Comment on above: Performed By: #### M G, CMP, TSH, T7, BNP #### [facility] [address] [address] [address] Glenys Holly MPV 11.1 fL Normal 9.5-13.5 [facility] Comment on above: Performed By: #### M G, CMP, TSH, T7, BNP #### [facility] [address] [address] [address] Glenys Holly MYELOCYTE # Normal [facility] Comment on above: Performed By: #### M G, CMP, TSH, T7, BNP #### [facility] [address] [address] [address] Glenys Holly MYELOCYTE % Normal [facility] Comment on above: Performed By: #### M G, CMP, TSH, T7, BNP #### [facility] [address] [address] [address] Glenys Holly NRBC Normal [facility] Comment on above: Performed By: #### M G, CMP, TSH, T7, BNP #### [facility] [address] [address] [address] Glenys Holly PLT 352 103/ul Normal 150-450 [facility] Comment on above: Performed By: #### M G, CMP, TSH, T7, BNP #### [facility] [address] [place] [address] Dr. Glenys Holly RBC 4.58 106/ul Normal 4.20-5.40 [facility] Comment on above: Performed By: #### M G, CMP, TSH, T7, BNP #### [facility] [address] [place] [address] Dr. Glenys Holly RDW 15.2 % Critically high 11.0-15.0 [facility] Comment on above: Performed By: #### M G, CMP, TSH, T7, BNP #### [facility] [address] [address] [address] Glenys Holly SEG # 12.32 103/ul Critically high 1.40-6.50 [facility] Comment on above: Performed By: #### M G, CMP, TSH, T7, BNP #### [facility] [address] [place] [address] Dr. Glenys Holly SEG % 77.0 % Critically high 43.0-75.0 [facility] Comment on above: Performed By: #### M G, CMP, TSH, T7, BNP #### [facility] [address] [place] [address] Dr. Glenys Holly WBC 16.0 103/ul Critically high 4.0-11.0 [facility] Comment on above: Performed By: #### M G, CMP, TSH, T7, BNP #### [facility] [id number] Glenys Holly CTA CHEST WO W [...] YULISSA TALBERT Date: 2022-05-05 09:32 Normal [facility] CULTURE BLOODon 05-05-2022 Microscopic examination of blood, culture Culture Observations: NO GROWTH AT 5 DAYS. Normal [facility] Comment on above: Performed By: #### B [id number] ####[facility] [id number] [place], [place] [address]Dn. Glenys Holly Microscopic examination of blood, culture Culture Observations: NO GROWTH AT 5 DAYS. Normal [facility] Comment on above: Performed By: #### B [id number] ####[facility] [id number] [place], [place] [address]Yf. Glenys Holly CULTURE URINEon 05-05-2022 CULTURE URINE Culture Observations : LIGHT GROWTH OF MIXED GENITAL NIDA. NO POTENTIAL PATHOGENS SEEN. Normal [facility] Comment on above: Performed By: #### U RCX ####[facility] [id number] [place], [place] [address]Ir. Glenys Holly Covid-19 PCR (CVDTBH)on 04-12 SARS-CoV-2 (COVID-19) RNA KINZA+probe Ql (Unsp spec) Not detected Normal NOT DETECTED [facility] Comment on above: Result Comment: When diagnostic [...] for this test is supported by the [place] of Health and Human Service's declaration that [...] used). Performed By: #### C VDTBH #### [facility] [address] [place], [place] [address] Dr. Glenys Holly ECHOCARDIO M/2D COMPLETEon 1 07-05-2021 ECHOCARDIO M/2D COMPLETE Patient: JUDITH KHAN Exam Date: 05/05/2022 : 1945 Gender:F Ordering : DR RODRICK SAMS . Admission #: [id number] Family : Order #: [id number] CLICK HERE TO VIEW EXAM ECHOCARDIOGRAM REPORT [...] M.D. on 05/10/2022 at 13:12 Normal [facility] INFLUENZA A AND B AGon 05-05 INFLUANEGH SEE BELOW Normal [facility] Comment on above: Result Comment: Nega tive for Flu A protein angiten. Infection due to Flu A cannot be ruled out. Flu A angiten in the sample may be below the detection limit of the test. Performed By: #### M G, CMP, TSH, T7, BNP #### [facility] [address] [place] [address] Dr. Glenys Holly [facility] SEE BELOW Normal [facility] Comment on above: Result Comment: Nega tive for Flu B protein antigen. Infection due to Flu B cannot be ruled out. Flu B antigen in the sample may be below the detection limit of the test. Performed By: #### M G, CMP, TSH, T7, BNP #### [facility] [address] [place] [address] Dr. Glenys Holly INFLUENZA A AG Negative Normal NEGATIVE SEE COMMENT [facility] Comment on above: Performed By: #### M G, CMP, TSH, T7, BNP #### [facility] [address] [place] [address] Dr. Glenys Holly INFLUENZA B AG Negative Normal NEGATIVE SEE COMMENT [facility] Comment on above: Performed By: #### M G, CMP, TSH, T7, BNP #### [facility] [address] [place] [address] Dr. Glenys Holly INTERNAL CONTROLS Within Normal Limits Normal Wi thin Normal Limits [facility] Comment on above: Performed By: #### M G, CMP, TSH, T7, BNP #### [facility] [address] [place] [address] Dr. Glenys Holly LACTATE/LACTIC ACIDon 2021 Lactate [Moles/Vol] 5.2 mmol/L Critically high 0.4-1.9 [facility] Comment on above: Performed By: #### M G, CMP, TSH, T7, BNP #### [facility] [address] [place] [address] Dr. Glenys Holly Lactate [Moles/Vol] 4.8 mmol/L Critically high 0.4-1.9 [facility] Comment on above: Performed By: #### M G, CMP, TSH, T7, BNP #### [facility] [address] [place] [address] Dr. Gleyns Holly LIPASEon 05-05-2022 Lipase [Catalytic activity/Vol] 64.0 U/L Critically low 73.0-393.0 [facility] Comment on above: Performed By: #### M G, CMP, TSH, T7, BNP #### [facility] [address] [place] [address] Dr. Glenys Holly PROF CHEM 8 (BAS METB)on Anion gap [Moles/Vol] 12.6 mmol/L Normal [facility] Comment on above: Performed By: #### M G, CMP, TSH, T7, BNP #### [facility] [address] [place] [address] Dr. Glenys Holly Calcium [Mass/Vol] 9.6 mg/dL Normal 8.5-10.1 [facility] Comment on above: Performed By: #### M G, CMP, TSH, T7, BNP #### [facility] [address] [place] [address] Dr. Glenys Holly Chloride [Moles/Vol] 102 mmol/L Normal 98-107 [facility] Comment on above: Performed By: #### M G, CMP, TSH, T7, BNP #### [facility] [address] [place] [address] Dr. Glenys Holly CO2 [Moles/Vol] 26.3 mmol/L Normal 21.0-32.0 [facility] Comment on above: Performed By: #### M G, CMP, TSH, T7, BNP #### [facility] [address] [place] [address] Dr. Glenys Holly Creatinine [Mass/Vol] 1.00 mg/dL Normal 0.55-1.02 [facility] Comment on above: Performed By: #### M G, CMP, TSH, T7, BNP #### [facility] [address] [address] [address] Glenys Holly EGFR-AF SINGAPOREAN >60 Normal >=60 [facility] Comment on above: Performed By: #### M G, CMP, TSH, T7, BNP #### [facility] [address] [address] [address] Glenys Holly EGFR-NON AF [place]OREAN 54 mL/min/1.73m2 Critically low >=60 [facility] Comment on above: Performed By: #### M G, CMP, TSH, T7, BNP #### [facility] [address] [address] [address] Glenys Holly Glucose [Mass/Vol] 128 mg/dL Critically high 74-106 [facility] Comment on above: Performed By: #### M G, CMP, TSH, T7, BNP #### [facility] [address] [place] [address] Dr. Glenys Holly Potassium [Moles/Vol] 2.9 mmol/L Critically low 3.5-5.1 [facility] Comment on above: Performed By: #### M G, CMP, TSH, T7, BNP #### [facility] [address] [address] [address] Glenys Holly Sodium [Moles/Vol] 138 mmol/L Normal 136-145 [facility] Comment on above: Performed By: #### M G, CMP, TSH, T7, BNP #### [facility] [address] [address] [address] Glenys Holly Urea nitrogen [Mass/Vol] 20.0 mg/dL Critically high 7.0-18.0 [facility] Comment on above: Performed By: #### M G, CMP, TSH, T7, BNP #### [facility] [address] [address] [address] Glenys Holly Urea nitrogen/Creatinine [Mass ratio] 20.0 mg/mg Normal [facility] Comment on above: Performed By: #### M G, CMP, TSH, T7, BNP #### [facility] [address] [address] [address] Glenys Holly T4on 05-05-2022 T4 [Mass/Vol] 7.40 ug/dL Normal 4.80-13.90 [facility] Comment on above: Performed By: #### M G, CMP, TSH, T7, BNP #### [facility] [address] [place] [address] Dr. Glenys Holly TSHon 05-05-2022 TSH 0.198 uIU/mL Critically low 0.358-3.740 [facility] Comment on above: Performed By: #### M G, CMP, TSH, T7, BNP #### [facility] [address] [place] [address] Dr. Glenys Holly UA RANDOM W/MICROSCOPICon BACTERIA NONE SEEN Normal NONE SEEN [facility] Comment on above: Performed By: #### M G, CMP, TSH, T7, BNP #### [facility] [address] [place] [address] Dr. Glenys Holly Bilirubin Ql (U) Negative Normal NEGATIVE [facility] Comment on above: Performed By: #### M G, CMP, TSH, T7, BNP #### [facility] [address] [place] [address] Dr. Glenys Holly CAST NONE SEEN Normal NONE SEEN [facility] Comment on above: Performed By: #### M G, CMP, TSH, T7, BNP #### [facility] [address] [place] [address] Dr. Glenys Holly Clarity (U) SL CLOUDY Abnormal CLEAR [facility] Comment on above: Performed By: #### M G, CMP, TSH, T7, BNP #### [facility] [address] [place] [address] Dr. Glenys Holly Color (U) LT. YELLOW Normal YELLOW [facility] Comment on above: Performed By: #### M G, CMP, TSH, T7, BNP #### [facility] [address] [place] [address] Dr. Glenys Holly Crystals LM Nom (Urine sed) NONE SEEN Normal NONE SEEN [facility] Comment on above: Performed By: #### M G, CMP, TSH, T7, BNP #### [facility] [address] [address] [address] Glenys Holly Epithelial cells LM Ql (Urine sed) FEW Abnormal NONE SEEN /RARE [facility] Comment on above: Performed By: #### M G, CMP, TSH, T7, BNP #### [facility] [address] [address] [address] Glenys Holly Glucose Ql (U) Negative Normal NEGATIVE [facility] Comment on above: Performed By: #### M G, CMP, TSH, T7, BNP #### [facility] [address] [address] [address] Glenys Holly Hemoglobin Ql (U) MODERATE Abnormal NEGATIVE [facility] Comment on above: Performed By: #### M G, CMP, TSH, T7, BNP #### [facility] [address] [place] [address] Dr. Glenys Holly Ketones Ql (U) Negative Normal NEGATIVE [facility] Comment on above: Performed By: #### M G, CMP, TSH, T7, BNP #### [facility] [address] [place] [address] Dr. Glenys Holly LEUKOCYTES Negative Normal NEGATIVE [facility] Comment on above: Performed By: #### M G, CMP, TSH, T7, BNP #### [facility] [address] [address] [address] Glenys Holly MUCOUS NONE SEEN Normal NONE SEEN [facility] Comment on above: Performed By: #### M G, CMP, TSH, T7, BNP #### [facility] [address] [address] [address] Glenys Holly Nitrite Ql (U) Negative Normal NEGATIVE [facility] Comment on above: Performed By: #### M G, CMP, TSH, T7, BNP #### [facility] [address] [address] [address] Glenys Holly pH (U) 6.0 [pH] Normal 5-9 [facility] Comment on above: Performed By: #### M G, CMP, TSH, T7, BNP #### [facility] [address] [place] [address] Dr. Glenys Holly RBC 2-5 Abnormal 0-2 [facility] Comment on above: Performed By: #### M G, CMP, TSH, T7, BNP #### [facility] [address] [address] [address] Glenys Holly SPEC GRAVITY 1.010 Normal 1.005-<=1.0 [facility] Comment on above: Performed By: #### M G, CMP, TSH, T7, BNP #### [facility] [address] [address] [address] Glenys Holly UA PROTEIN TRACE Normal NEGATIVE/ TRACE [facility] Comment on above: Performed By: #### M G, CMP, TSH, T7, BNP #### [facility] [address] [address] [address] Glenys Holly Urobilinogen Qn (U) 0.2 {Phoebe'U}/dL Normal 0.2 - 1. 0 [facility] Comment on above: Performed By: #### M G, CMP, TSH, T7, BNP #### [facility] [address] [address] [address] Glenys Holly WBC NONE SEEN Normal NONE SEEN [facility] Comment on above: Performed By: #### M G, CMP, TSH, T7, BNP #### [facility] [address] [address] [address] Glenys Holly XR CHEST 1 Von [...] SUPA LOZANO Date: 2022-05-05 07:41 Normal [facility] CULTURE URINEon 03-30-2022 CULTURE URINE Culture Observations : GREATER THAN 4 ORGANISMS PRESENT. PLEASE RESUBMIT CLEAN CATCH MID-STREAM URINE IF CLINICALLY INDICATED. Normal [facility] Comment on above: Performed By: #### U RCX ####[facility] [address] [address]Dr. Glenys Holly CBC W MANUAL DIFFon 03-29-20 ATYPICAL LYMPH # Normal [facility] Comment on above: Performed By: #### M G, CMP, TSH, T7, BNP #### [facility] [address] [address] [address] Glenys Holly ATYPICAL LYMPH % Normal [facility] Comment on above: Performed By: #### M G, CMP, TSH, T7, BNP #### [facility] [address] [address] [address] Glenys Holly BAND # Normal 0.0-0.3 [facility] Comment on above: Performed By: #### M G, CMP, TSH, T7, BNP #### [facility] [address] [address] [address] Glenys Holly BAND % Normal 0-5 [facility] Comment on above: Performed By: #### M G, CMP, TSH, T7, BNP #### [facility] [address] [address] [address] Glenys Holly BASOM # 0.20 103/ul Critically high 0.00-0.10 [facility] Comment on above: Performed By: #### M G, CMP, TSH, T7, BNP #### [facility] [address] [address] [address] Glenys Holly BASOM % 1.0 % Normal 0.2-2.0 [facility] Comment on above: Performed By: #### M G, CMP, TSH, T7, BNP #### [facility] [address] [address] [address] Glenys Holly BLAST # Normal [facility] Comment on above: Performed By: #### M G, CMP, TSH, T7, BNP #### [facility] [address] [address] [address] Glenys Holly BLAST % Normal [facility] Comment on above: Performed By: #### M G, CMP, TSH, T7, BNP #### [facility] [address] [address] [address] Glenys Holly CORRECTED WBC Normal 4.0-11.0 [facility] Comment on above: Performed By: #### M G, CMP, TSH, T7, BNP #### [facility] [address] [address] [address] Glenys Holly EOS # 0.00 103/ul Normal 0.00-0.70 [facility] Comment on above: Performed By: #### M G, CMP, TSH, T7, BNP #### [facility] [address] [address] [address] Glenys Holly EOS% 0.0 % Critically low 0.9-7.0 [facility] Comment on above: Performed By: #### M G, CMP, TSH, T7, BNP #### [facility] [address] [place] [address] Dr. Glenys Holly HCT 45.0 % Normal 36.0-48.0 [facility] Comment on above: Performed By: #### M G, CMP, TSH, T7, BNP #### [facility] [address] [address] [address] Glenys Holly HGB 15.2 g/dl Normal 12.0-16.0 [facility] Comment on above: Performed By: #### M G, CMP, TSH, T7, BNP #### [facility] [address] [address] [address] Glenys Holly LYMPHM # 2.80 103/ul Normal 1.20-3.80 [facility] Comment on above: Performed By: #### M G, CMP, TSH, T7, BNP #### [facility] [address] [address] [address] Glenys Holly LYMPHM% 14.0 % Critically low 20.5-60.0 [facility] Comment on above: Performed By: #### M G, CMP, TSH, T7, BNP #### [facility] [address] [address] [address] Glenys Holly MCH 30.6 pg Normal 26.7-34.0 [facility] Comment on above: Performed By: #### M G, CMP, TSH, T7, BNP #### [facility] [address] [address] [address] Glenys Holly MCHC 33.8 g/dl Normal 29.9-35.2 [facility] Comment on above: Performed By: #### M G, CMP, TSH, T7, BNP #### [facility] [address] [address] [address] Glenys Holly MCV 90.7 fL Normal 81.0-99.0 [facility] Comment on above: Performed By: #### M G, CMP, TSH, T7, BNP #### [facility] [address] [place] [address] Dr. Glenys Holly METAMYELOCYTE # Normal [facility] Comment on above: Performed By: #### M G, CMP, TSH, T7, BNP #### [facility] [address] [place] [address] Dr. Glenys Holly METAMYELOCYTE % Normal [facility] Comment on above: Performed By: #### M G, CMP, TSH, T7, BNP #### [facility] [address] [address] [address] Glenys Holly MONOM# 2.40 103/ul Critically high 0.30-0.80 [facility] Comment on above: Performed By: #### M G, CMP, TSH, T7, BNP #### [facility] [address] [place] [address] Dr. Glenys Holly MONOM% 12.0 % Normal 1.7-12.0 [facility] Comment on above: Performed By: #### M G, CMP, TSH, T7, BNP #### [facility] [address] [place] [address] Dr. Glenys Holly MPV 11.5 fL Normal 9.5-13.5 [facility] Comment on above: Performed By: #### M G, CMP, TSH, T7, BNP #### [facility] [address] [address] [address] Glenys Holly MYELOCYTE # Normal [facility] Comment on above: Performed By: #### M G, CMP, TSH, T7, BNP #### [facility] [address] [address] [address] Glenys Holly MYELOCYTE % Normal [facility] Comment on above: Performed By: #### M G, CMP, TSH, T7, BNP #### [facility] [address] [address] [address] Glenys Holly NRBC Normal [facility] Comment on above: Performed By: #### M G, CMP, TSH, T7, BNP #### [facility] [address] [address] [address] Glenys Holly PLT 323 103/ul Normal 150-450 [facility] Comment on above: Performed By: #### M G, CMP, TSH, T7, BNP #### [facility] [address] [address] [address] Glenys Holly RBC 4.96 106/ul Normal 4.20-5.40 [facility] Comment on above: Performed By: #### M G, CMP, TSH, T7, BNP #### [facility] [address] [address] [address] Glenys Holly RDW 14.4 % Normal 11.0-15.0 [facility] Comment on above: Performed By: #### M G, CMP, TSH, T7, BNP #### [facility] [address] [address] [address] Glenys Holly SEG # 14.60 103/ul Critically high 1.40-6.50 [facility] Comment on above: Performed By: #### M G, CMP, TSH, T7, BNP #### [facility] [address] [address] [address] Glenys Holly SEG % 73.0 % Normal 43.0-75.0 [facility] Comment on above: Performed By: #### M G, CMP, TSH, T7, BNP #### [facility] [facility] [address] [address] [address] Glenys Holly WBC 20.0 103/ul Critically high 4.0-11.0 [facility] Comment on above: Performed By: #### M G, CMP, TSH, T7, BNP #### [facility] [id number] Glen[address] Holly CT ABD/PELV W CONon [...] RAMIRO SPENCER Date: 2022-03-29 11:27 Normal [facility] ER URINE PROFILEon 2 Bilirubin Ql (U) Negative Normal NEGATIVE [facility] Comment on above: Performed By: #### M G, CMP, TSH, T7, BNP #### [facility] [address] [place], [place] [address] Dr. Glenys Holly Clarity (U) CLEAR Normal CLEAR [facility] Comment on above: Performed By: #### M G, CMP, TSH, T7, BNP #### [facility] [address] [address] [address] Glenys Holly Color (U) LT. YELLOW Normal YELLOW [facility] Comment on above: Performed By: #### M G, CMP, TSH, T7, BNP #### [facility] [address] [address] [address] Glenys CASILLASAHFranky A micrscopic examina tion will be performed if indicated. Normal [facility] Comment on above: Performed By: #### M G, CMP, TSH, T7, BNP #### [facility] [address] [address] [address] Glenys Holly Glucose Ql (U) Negative Normal NEGATIVE [facility] Comment on above: Performed By: #### M G, CMP, TSH, T7, BNP #### [facility] [address] [address] [address] Glenys Holly Hemoglobin Ql (U) MODERATE Abnormal NEGATIVE [facility] Comment on above: Performed By: #### M G, CMP, TSH, T7, BNP #### [facility] [address] [address] [address] Glenys Holly Ketones Ql (U) 15 mg/dl Abnormal NEGATIVE [facility] Comment on above: Performed By: #### M G, CMP, TSH, T7, BNP #### [facility] [address] [address] [address] Glenys Holly LEUKOCYTES LARGE Abnormal NEGATIVE [facility] Comment on above: Performed By: #### M G, CMP, TSH, T7, BNP #### [facility] [address] [address] [address] Glenys Holly Nitrite Ql (U) Negative Normal NEGATIVE [facility] Comment on above: Performed By: #### M G, CMP, TSH, T7, BNP #### [facility] [address] [address] [address] Glenys Holly pH (U) 6.5 [pH] Normal 5-9 [facility] Comment on above: Performed By: #### M G, CMP, TSH, T7, BNP #### [facility] [address] [place] [address] Dr. Glenys Holly SPEC GRAVITY 1.015 Normal 1.005-<=1.0 25 [facility] Comment on above: Performed By: #### M G, CMP, TSH, T7, BNP #### [facility] [address] [place] [address] Dr. Glenys Holly UA PROTEIN TRACE Normal NEGATIVE/ TRACE [facility] Comment on above: Performed By: #### M G, CMP, TSH, T7, BNP #### [facility] [address] [place] [address] Dr. Glenys Holly UR MICRO IND INDICATED Normal [facility] Comment on above: Performed By: #### M G, CMP, TSH, T7, BNP #### [facility] [address] [place] [address] Dr. Glenys Holly Urobilinogen Qn (U) 0.2 {Phoebe'U}/dL Normal 0.2 - 1. 0 [facility] Comment on above: Performed By: #### M G, CMP, TSH, T7, BNP #### [facility] [address] [place] [address] Dr. Glenys Holly LIPASEon 03-29-2022 Lipase [Catalytic activity/Vol] 62.0 U/L Critically low 73.0-393.0 [facility] Comment on above: Performed By: #### M G, CMP, TSH, T7, BNP #### [facility] [address] [place] [address] Dr. Glenys Holly PROF 14(COMP METB)on 022 Albumin [Mass/Vol] 3.7 g/dL Normal 3.4-5.0 [facility] Comment on above: Performed By: #### M G, CMP, TSH, T7, BNP #### [facility] [address] [place] [address] Dr. Glenys Holly Albumin/Globulin [Mass ratio] 1.2 {ratio} Normal [facility] Comment on above: Performed By: #### M G, CMP, TSH, T7, BNP #### [facility] [address] [address] [address] Glenys Holly ALP [Catalytic activity/Vol] 106 U/L Normal 46-116 [facility] Comment on above: Performed By: #### M G, CMP, TSH, T7, BNP #### [facility] [address] [place] [address] Dr. Glenys Holly ALT [Catalytic activity/Vol] 17 U/L Normal 14-59 [facility] Comment on above: Performed By: #### M G, CMP, TSH, T7, BNP #### [facility] [address] [place] [address] Dr. Glenys Holly Anion gap [Moles/Vol] 11.8 mmol/L Normal [facility] Comment on above: Performed By: #### M G, CMP, TSH, T7, BNP #### [facility] [address] [place] [address] Dr. Glenys Holly AST [Catalytic activity/Vol] 19 U/L Normal 15-37 [facility] Comment on above: Performed By: #### M G, CMP, TSH, T7, BNP #### [facility] [address] [place] [address] Dr. Glenys Holly Bilirubin [Mass/Vol] 0.8 mg/dL Normal 0.2-1.0 [facility] Comment on above: Performed By: #### M G, CMP, TSH, T7, BNP #### [facility] [address] [place] [address] Dr. Glenys Holly Calcium [Mass/Vol] 9.8 mg/dL Normal 8.5-10.1 [facility] Comment on above: Performed By: #### M G, CMP, TSH, T7, BNP #### [facility] [address] [place] [address] Dr. Glenys Holly Chloride [Moles/Vol] 101 mmol/L Normal 98-107 [facility] Comment on above: Performed By: #### M G, CMP, TSH, T7, BNP #### [facility] [address] [place] [address] Dr. Glenys Holly CO2 [Moles/Vol] 26.2 mmol/L Normal 21.0-32.0 [facility] Comment on above: Performed By: #### M G, CMP, TSH, T7, BNP #### [facility] [address] [address] [address] Glenys Holly Creatinine [Mass/Vol] 0.76 mg/dL Normal 0.55-1.02 [facility] Comment on above: Performed By: #### M G, CMP, TSH, T7, BNP #### [facility] [address] [address] [address] Glenys Holly EGFR-AF SINGAPOREAN >60 Normal >=60 [facility] Comment on above: Performed By: #### M G, CMP, TSH, T7, BNP #### [facility] [address] [address] [address] Glenys Holly EGFR-NON AF SINGAPOREAN >60 Normal >=60 [facility] Comment on above: Performed By: #### M G, CMP, TSH, T7, BNP #### [facility] [address] [address] [address] Glenys Holly Globulin (S) [Mass/Vol] 3.2 g/dL Normal [facility] Comment on above: Performed By: #### M G, CMP, TSH, T7, BNP #### [facility] [address] [address] [address] Glenys Holly Glucose [Mass/Vol] 103 mg/dL Normal 74-[address] [facility] Comment on above: Performed By: #### M G, CMP, TSH, T7, BNP #### [facility] [address] [address] [address] Glenys Holly Potassium [Moles/Vol] 3.0 mmol/L Critically low 3.5-5.1 [facility] Comment on above: Performed By: #### M G, CMP, TSH, T7, BNP #### [facility] [address] [address] [address] Glenys Holly Protein [Mass/Vol] 6.9 g/dL Normal 6.4-8.[address] [facility] Comment on above: Performed By: #### M G, CMP, TSH, T7, BNP #### [facility] [address] [address] [address] Glenys Holly Sodium [Moles/Vol] 136 mmol/L Normal 136-145 [facility] Comment on above: Performed By: #### M G, CMP, TSH, T7, BNP #### [facility] [address] [address] [address] Glenys Holly Urea nitrogen [Mass/Vol] 16.0 mg/dL Normal 7.0-18.0 [facility] Comment on above: Performed By: #### M G, CMP, TSH, T7, BNP #### [facility] [address] [place] [address] Dr. Glenys Holly Urea nitrogen/Creatinine [Mass ratio] 21.1 mg/mg Normal [facility] Comment on above: Performed By: #### M G, CMP, TSH, T7, BNP #### [facility] [address] [place] [address] Dr. Glenys Holly TROPONIN, HIGH SENSITIVITYon 03-29-2022 HSTROP 30.7 pg/mL Normal 4.0-51.3 [facility] Comment on above: Result Comment: CUT- OFF POINTS HAVE BEEN ESTABLISHED BASED ON THE FOURTH UNIVERSAL DEFINITIONS OF MYOCARDIAL INFARCTION. THE UPPER REFERENCE LIMIT (URL) OF TROPONIN, DEFINED THE 99TH PERCENTILE OF cTnI DISTRIBUTION IN A REFERENCE POPULATION, HAS BEEN CONFIRMED THE DECISION THRESHOLD FOR AR DIAGNOSIS. Performed By: #### M G, CMP, TSH, T7, BNP #### [facility] [address] [place] [address] Dr. Glenys Holly URINE MICROSCOPIC ONLYon BACTERIA MODERATE Abnormal NONE SEEN [facility] Comment on above: Performed By: #### M G, CMP, TSH, T7, BNP #### [facility] [address] [place] [address] Dr. Glenys Holly Bacteria identified Cx Nom (U) INDICATED Normal [facility] Comment on above: Performed By: #### M G, CMP, TSH, T7, BNP #### [facility] [address] [place] [address] Dr. Glenys Holly CA OX CRYSTALS MODERATE Normal [facility] Comment on above: Performed By: #### M G, CMP, TSH, T7, BNP #### [facility] [address] [address] [address] Glenys Holly CAST NONE SEEN Normal NONE SEEN [facility] Comment on above: Performed By: #### M G, CMP, TSH, T7, BNP #### [facility] [address] [address] [address] Glenys Holly Crystals LM Nom (Urine sed) SEEN Abnormal NONE SEEN [facility] Comment on above: Performed By: #### M G, CMP, TSH, T7, BNP #### [facility] [address] [address] [address] Glenys Holly Epithelial cells LM Ql (Urine sed) FEW Abnormal NONE SEEN /RARE [facility] Comment on above: Performed By: #### M G, CMP, TSH, T7, BNP #### [facility] [address] [address] [address] Glenys Holly MUCOUS NONE SEEN Normal NONE SEEN [facility] Comment on above: Performed By: #### M G, CMP, TSH, T7, BNP #### [facility] [address] [address] [address] Glenys Holly RBC 5-10 Abnormal 0-2 [facility] Comment on above: Performed By: #### M G, CMP, TSH, T7, BNP #### [facility] [address] [address] [address] Glenys Holly WBC 20-50 Abnormal NONE SEEN [facility] Comment on above: Performed By: #### M G, CMP, TSH, T7, BNP #### [facility] [address] [address] [address] Glenys Holly XR ABD FLAT UP_PA [...] RAMIRO SPENCER Date: 2022-03-29 09:27 Normal [facility] CT HEAD WO CONon 12-27-2021 CT [...] RAMIRO SPENCER Date: 2021-12-27 12:48 Normal [facility] Discharge Summaryon 08-18-19 18 Discharge Summary MR[id number] Admitted: 08/11/2017 Discharged: [...] bleeding. [facility].Upon arrival to the [facility], no other injuries were noted. The patientwas [...] 4-6 hours as needed for pain and Irlyfh385 mg b.i.d. for opioid related constipation.Electronicall y Signed by:Supa May M.D. 08/29/2017 12:01 P Supa May M.D. I personally saw this patient on the day of the encounter, performed thekey portion(s) of the service and participated in the management andconfirm the resident's documentation. Please note there may be anadditional personal documentation from me. Date Dict: 08/16/2017/10:11 A/Josh Palmer, MDDate Trans: 08/17/2017 06:00 A/[id number] Normal [facility] BASIC METABOLIC PANELon 03-0 Calcium 8.8 mg/dL Normal 8.6-10.3 [facility] Comment on above: Order Comment: No: D o not add to previous draw Performed By: #### 0 0121, 43486 ####[facility] [place] [address], [facility] Chloride 97 mmol/L Low 98-107 [facility] Comment on above: Order Comment: No: D o not add to previous draw Performed By: #### 0 0121, 09242 ####[facility] [place] [address], [facility] CO2 33 mmol/L High 21-31 [facility] Comment on above: Order Comment: No: D o not add to previous draw Performed By: #### 0 0121, 34718 ####[facility] [place] [address], [facility] Creatinine 0.75 mg/dL Normal 0.60-1.20 [facility] Comment on above: Order Comment: No: D o not add to previous draw Performed By: #### 0 0121, 65957 ####[facility] [place] [address], [facility] eGFR (black) mL/min/{1.73_m2} Normal >60 [facility] Comment on above: Order Comment: No: D o not add to previous draw Result Comment: Calc ulation may not be valid for patients over 70 years Performed By: #### 0 0121, 69233 ####[facility] eGFR (non-black) mL/min/{1.73_m2} Normal >60 Th e [facility] Comment on above: Order Comment: No: D o not add to previous draw Result Comment: Calc ulation may not be valid for patients over 70 years Performed By: #### 0 0121, 80568 ####[facility] [facility] [address], [facility] Glucose mass conc 91 mg/dL Normal 70-100 [facility] Comment on above: Order Comment: No: D o not add to previous draw Performed By: #### 0 0121, 22372 ####[facility] [place] [address], [facility] Potassium molar conc 2.8 mmol/L Low 3.5-5.1 [facility] Comment on above: Order Comment: No: D o not add to previous draw Performed By: #### 0 0121, 49991 ####[facility] [place] [address], [facility] Sodium 137 mmol/L Normal 136-145 [facility] Comment on above: Order Comment: No: D o not add to previous draw Performed By: #### 0 0121, 21617 ####[facility] [place] [address], [facility] Urea nitrogen 13 mg/dL Normal 7-25 [facility] Comment on above: Order Comment: No: D o not add to previous draw Performed By: #### 0 0121, 01116 ####[facility] [facility].[address] CBC COMPLETE BLOOD COUNTon 0 08-15-2017 Erythrocyte distribution width Auto Ratio (RBC) 14.6 % Normal 11.5-15.0 [facility] Comment on above: Order Comment: No: D o not add to previous draw Performed By: #### 5 610, 60022 ####[facility] [facility] Erythrocytes (RBC) 4.05 10*6/uL Normal 3.80-5.00 [facility] Comment on above: Order Comment: No: D o not add to previous draw Performed By: #### 5 610, 04310 ####[facility] [facility] Erythrocytes (RBC) 0 % Normal 0-0 [facility] Comment on above: Order Comment: No: D o not add to previous draw Performed By: #### 5 610, 52345 ####[facility] [facility].[address] Hematocrit (HCT) 36.8 % Normal 36.0-45.0 [facility] Comment on above: Order Comment: No: D o not add to previous draw Performed By: #### 5 610, 42786 ####[facility] Hemoglobin mass conc (Bld) 12.3 g/dL Normal 12.0-15.0 [facility] Comment on above: Order Comment: No: D o not add to previous draw Performed By: #### 5 610, 52247 ####[place] [address] MCH 30.4 pg Normal 27.0-33.0 [facility] Comment on above: Order Comment: No: D o not add to previous draw Performed By: #### 5 6101, 91882 ####[address] MCHC mass conc (RBC) 33.4 g/dL Normal 32.0-35.0 [facility] Comment on above: Order Comment: No: D o not add to previous draw Performed By: #### 5 6101, 03502 ####[address] MCV 90.9 fL Normal 82.0-98.0 [facility] Comment on above: Order Comment: No: D o not add to previous draw Performed By: #### 5 6101, 59058 ####[address] PLAT CNT 196 10*3/uL Normal 150-400 [facility] Comment on above: Order Comment: No: D o not add to previous draw Performed By: #### 5 6101, 39423 ####[address] WBC (Leukocytes) 11.0 10*3/uL High 4.0-10.6 [facility] Comment on above: Order Comment: No: D o not add to previous draw Performed By: #### 5 6101, 26768 ####[address] PORTABLE CHEST 1 VIEWon 03-0 PORTABLE CHEST 1 VIEW [facility] [address] [place] [address] Sera ent Name: JUDITH KHAN : 1945Sex: FAge: Race: WhiteMRN: [id number]. Location: [id number] Status: IVisit #: [id number] Date: 08/15/2017 7:05:00 AMCompleted Date: 08/15/2017 07:54 AMRequesting Provider: JOSH PALMER Attending Provider: ALEXANDER OLSON Report Copy To: Signs & Symptoms: O2 DesaturationHistory: Patient history not availableComments: R/O EffusionExam: PORTABLE CHEST 1 VIEWAccession #: [id number] ===PORTABLE CHEST 1 VIEW 08/15/2017 7:54 AM [...] findings. Electronically signed by:Nina Beaver. Transcribed by: [email or web address], User Resident: JAZMIN MARElectronically Signed by: NINA BEAVER @ 08/15/2017 10:25 AMI personally read this/these film(s) with this resident Normal [facility] Comment on above: Order Comment: R/O E ffusion BASIC METABOLIC PANELon 03-0 Calcium 8.6 mg/dL Normal 8.6-10.3 [facility] Comment on above: Order Comment: No: D o not add to previous draw Performed By: #### 0 0121, 63576 ####[facility] [place] [address], [facility] Chloride 103 mmol/L Normal 98-107 [facility] Comment on above: Order Comment: No: D o not add to previous draw Performed By: #### 0 0121, 67931 ####[facility] [place] [address], [place] CO2 30 mmol/L Normal 21-31 [facility] Comment on above: Order Comment: No: D o not add to previous draw Performed By: #### 0 0121, 46152 ####[facility] [place] [address], [facility] Creatinine 0.60 mg/dL Normal 0.60-1.20 [facility] Comment on above: Order Comment: No: D o not add to previous draw Performed By: #### 0 0121, 78849 ####[facility] [place] [address], [facility] eGFR (black) mL/min/{1.73_m2} Normal >60 [facility] Comment on above: Order Comment: No: D o not add to previous draw Result Comment: Calc ulation may not be valid for patients over 70 years Performed By: #### 0 0121, 26835 ####[facility] [place] [address], [place] eGFR (non-black) mL/min/{1.73_m2} Normal >60 Th e [facility] Comment on above: Order Comment: No: D o not add to previous draw Result Comment: Calc ulation may not be valid for patients over 70 years Performed By: #### 0 0121, 50228 ####[facility] [place] [address], [place] Glucose mass conc 81 mg/dL Normal 70-100 [facility] Comment on above: Order Comment: No: D o not add to previous draw Performed By: #### 0 0121, 87607 ####[facility] [place] [address], [facility] Potassium molar conc 3.0 mmol/L Low 3.5-5.1 [facility] Comment on above: Order Comment: No: D o not add to previous draw Performed By: #### 0 0121, 71726 ####[facility] Sodium 138 mmol/L Normal 136-145 [facility] Comment on above: Order Comment: No: D o not add to previous draw Performed By: #### 0 0121, 44009 ####[facility] Urea nitrogen 12 mg/dL Normal 7-25 [facility] Comment on above: Order Comment: No: D o not add to previous draw Performed By: #### 0 0121, 26999 ####[facility] [facility].[address] CBC COMPLETE BLOOD COUNTon 0 08-14-2017 Erythrocyte distribution width Auto Ratio (RBC) 14.9 % Normal 11.5-15.0 [facility] Comment on above: Order Comment: No: D o not add to previous draw Performed By: #### 0 0121, 65937 ####[facility] Erythrocytes (RBC) 3.80 10*6/uL Normal 3.80-5.00 [facility] Comment on above: Order Comment: No: D o not add to previous draw Performed By: #### 0 0121, 43003 ####[facility] Erythrocytes (RBC) 0 % Normal 0-0 [facility] Comment on above: Order Comment: No: D o not add to previous draw Performed By: #### 0 0121, 50389 ####[facility] Hematocrit (HCT) 34.3 % Low 36.0-45.0 [facility] Comment on above: Order Comment: No: D o not add to previous draw Performed By: #### 0 0121, 62517 ####[facility] Hemoglobin mass conc (Bld) 11.7 g/dL Low 12.0-15.0 [facility] Comment on above: Order Comment: No: D o not add to previous draw Performed By: #### 0 0121, 67501 ####[facility] [facility].[address] MCH 30.8 pg Normal 27.0-33.0 [facility] Comment on above: Order Comment: No: D o not add to previous draw Performed By: #### 0 0121, 21902 ####[facility] [facility].[address] MCHC mass conc (RBC) 34.1 g/dL Normal 32.0-35.0 [facility] Comment on above: Order Comment: No: D o not add to previous draw Performed By: #### 0 0121, 64226 ####[facility] [facility].[address] MCV 90.3 fL Normal 82.0-98.0 [facility] Comment on above: Order Comment: No: D o not add to previous draw Performed By: #### 0 0121, 74729 ####[facility] [facility] [place] [place] [address], [facility] PLAT CNT 134 10*3/uL Low 150-400 [facility] Comment on above: Order Comment: No: D o not add to previous draw Performed By: #### 0 0121, 31949 ####[address] WBC (Leukocytes) 11.5 10*3/uL High 4.0-10.6 [facility] Comment on above: Order Comment: No: D o not add to previous draw Performed By: #### 0 0121, 55883 ####[address] MAGNESIUM BLOODon 08-14-2017 Magnesium 1.9 mg/dL Normal 1.9-2.7 [facility] Comment on above: Order Comment: No: D o not add to previous draw Performed By: #### 0 0121, 74385 ####[address] PHOSPHORUS BLOODon 8 Phosphate 2.5 mg/dL Normal 2.5-5.0 [facility] Comment on above: Order Comment: No: D o not add to previous draw Performed By: #### 0 0121, 02180 ####[address] PORTABLE CHEST 1 VIEWon PORTABLE CHEST 1 VIEW [facility] [id number] [place] [address] Sera ent Name: JUDITH KHAN : 1945Sex: FAge: Race: WhiteMRN: [id number]. Location: [id number] Status: IVisit #: [id number] Date: 08/14/2017 8:00:00 AMCompleted Date: 08/14/2017 08:34 AMRequesting Provider: JOSH PALMER Attending Provider: ALEXANDER OLSON Report Copy To: Signs & Symptoms: O2 DesaturationHistory: Patient history not availableComments: R/O AtelectasisExam: PORTABLE CHEST 1 VIEWAccession #: [id number] ===PORTABLE CHEST 1 VIEW 08/14/2017 8:34 AM [...] findings. Electronically signed by:Kristian Nascimento. Transcribed by: [email or web address], User Resident: JAZMIN MARElectronically Signed by: KRISTIAN NASCIMENTO @ 08/14/2017 09:18 PMI personally read this/these film(s) with this resident Normal [facility] Comment on above: Order Comment: R/O A telectasis BASIC METABOLIC PANELon 03-0 Calcium 8.4 mg/dL Low 8.6-10.3 [facility] Comment on above: Order Comment: No: D o not add to previous draw Performed By: #### 0 0121, [id number] ####[facility] [facility] [place] [address], [facility] Chloride 109 mmol/L High 98-107 [facility] Comment on above: Order Comment: No: D o not add to previous draw Performed By: #### 0 0121, 79133 ####[facility] [facility] [place] [place] [address], [facility] CO2 30 mmol/L Normal 21-31 [facility] Comment on above: Order Comment: No: D o not add to previous draw Performed By: #### 0 0121, 26852 ####[facility] [facility] [place] [place] [address], [facility] Creatinine 0.62 mg/dL Normal 0.60-1.20 [facility] Comment on above: Order Comment: No: D o not add to previous draw Performed By: #### 0 0121, 52988 ####[facility] eGFR (black) mL/min/{1.73_m2} Normal >60 [facility] Comment on above: Order Comment: No: D o not add to previous draw Result Comment: Calc ulation may not be valid for patients over 70 years Performed By: #### 0 0121, 81508 ####[facility] eGFR (non-black) mL/min/{1.73_m2} Normal >60 [facility] Comment on above: Order Comment: No: D o not add to previous draw Result Comment: Calc ulation may not be valid for patients over 70 years Performed By: #### 0 0121, 21019 ####[facility] [place] [address], [facility] Glucose mass conc 99 mg/dL Normal 70-100 [facility] Comment on above: Order Comment: No: D o not add to previous draw Performed By: #### 0 0121, 79188 ####[facility] Potassium molar conc 3.2 mmol/L Low 3.5-5.1 [facility] Comment on above: Order Comment: No: D o not add to previous draw Performed By: #### 0 0121, 41617 ####[facility] Sodium 143 mmol/L Normal 136-145 [facility] Comment on above: Order Comment: No: D o not add to previous draw Performed By: #### 0 0121, 61976 ####[facility] Urea nitrogen 14 mg/dL Normal 7-25 [facility] Comment on above: Order Comment: No: D o not add to previous draw Performed By: #### 0 0121, 37033 ####[facility] CBC COMPLETE BLOOD COUNTon 0 - Erythrocyte distribution width Auto Ratio (RBC) 15.9 % High 11.5-15.0 [facility] Comment on above: Order Comment: No: D o not add to previous draw Performed By: #### 0 0121, 20739 ####[facility] Erythrocytes (RBC) 0 % Normal 0-0 [facility] Comment on above: Order Comment: No: D o not add to previous draw Performed By: #### 0 0121, 66200 ####[facility] Erythrocytes (RBC) 3.76 10*6/uL Low 3.80-5.00 [facility] Comment on above: Order Comment: No: D o not add to previous draw Performed By: #### 0 0121, 23117 ####[facility] Hematocrit (HCT) 34.3 % Low 36.0-45.0 [facility] Comment on above: Order Comment: No: D o not add to previous draw Performed By: #### 0 0121, 19833 ####[facility] Hemoglobin mass conc (Bld) 11.4 g/dL Low 12.0-15.0 [facility] Comment on above: Order Comment: No: D o not add to previous draw Performed By: #### 0 0121, 61751 ####[facility] MCH 30.3 pg Normal 27.0-33.0 [facility] Comment on above: Order Comment: No: D o not add to previous draw Performed By: #### 0 0121, 33845 ####[facility] [facility].[address] MCHC mass conc (RBC) 33.2 g/dL Normal 32.0-35.0 [facility] Comment on above: Order Comment: No: D o not add to previous draw Performed By: #### 0 0121, 53051 ####[facility] MCV 91.2 fL Normal 82.0-98.0 [facility] Comment on above: Order Comment: No: D o not add to previous draw Performed By: #### 0 0121, 48659 ####[facility] [facility].[address] PLAT CNT 95 10*3/uL Low 150-400 [facility] Comment on above: Order Comment: No: D o not add to previous draw Performed By: #### 0 0121, 14890 ####[facility] WBC (Leukocytes) 9.1 10*3/uL Normal 4.0-10.6 [facility] Comment on above: Order Comment: No: D o not add to previous draw Performed By: #### 0 0121, 00847 ####[facility] [place] [address], [facility] MAGNESIUM BLOODon 08-13-2017 Magnesium 1.8 mg/dL Low 1.9-2.7 [facility] Comment on above: Order Comment: No: D o not add to previous draw Performed By: #### 0 0121, 06091 ####[facility] [place] [address], [facility] PHOSPHORUS BLOODon 8 Phosphate 1.9 mg/dL Low 2.5-5.0 [facility] Comment on above: Order Comment: No: D o not add to previous draw Performed By: #### 0 0121, 78863 ####[facility] BASIC METABOLIC PANELon Calcium 8.4 mg/dL Low 8.6-10.3 [facility] Comment on above: Order Comment: No: D o not add to previous draw Performed By: #### 0 0121, 74099 ####[facility] [place] [address], [facility] Chloride 113 mmol/L High 98-107 [facility] Comment on above: Order Comment: No: D o not add to previous draw Performed By: #### 0 0121, 73843 ####[facility] [place] [address], [facility] CO2 25 mmol/L Normal 21-31 [facility] Comment on above: Order Comment: No: D o not add to previous draw Performed By: #### 0 0121, 17917 ####[facility] [place] [address], [facility] Creatinine 0.75 mg/dL Normal 0.60-1.20 [facility] Comment on above: Order Comment: No: D o not add to previous draw Performed By: #### 0 0121, 07125 ####[facility] [place] [address], [facility] eGFR (black) mL/min/{1.73_m2} Normal >60 [facility] Comment on above: Order Comment: No: D o not add to previous draw Result Comment: Calc ulation may not be valid for patients over 70 years Performed By: #### 0 0121, 40780 ####[facility] eGFR (non-black) mL/min/{1.73_m2} Normal >60 [facility] Comment on above: Order Comment: No: D o not add to previous draw Result Comment: Calc ulation may not be valid for patients over 70 years Performed By: #### 0 0121, 92643 ####[facility] [place] [address], [facility] Glucose mass conc 116 mg/dL High 70-100 [facility] Comment on above: Order Comment: No: D o not add to previous draw Performed By: #### 0 0121, 96605 ####[facility] [place] [address], [facility] Potassium molar conc 3.6 mmol/L Normal 3.5-5.1 [facility] Comment on above: Order Comment: No: D o not add to previous draw Performed By: #### 0 0121, 18004 ####[facility] [place] [address], [facility] Sodium 144 mmol/L Normal 136-145 [facility] Comment on above: Order Comment: No: D o not add to previous draw Performed By: #### 0 0121, 45513 ####[facility] Urea nitrogen 16 mg/dL Normal 7-25 [facility] Comment on above: Order Comment: No: D o not add to previous draw Performed By: #### 0 0121, 35533 ####[facility] CBC COMPLETE BLOOD COUNTon 0 08-12-2017 Erythrocyte distribution width Auto Ratio (RBC) 16.3 % High 11.5-15.0 [facility] Comment on above: Order Comment: No: D o not add to previous draw Performed By: #### 0 0121, 64184 ####[facility] Erythrocytes (RBC) 4.15 10*6/uL Normal 3.80-5.00 [facility] Comment on above: Order Comment: No: D o not add to previous draw Performed By: #### 0 0121, 28937 ####[facility] Erythrocytes (RBC) 0 % Normal 0-0 [facility] Comment on above: Order Comment: No: D o not add to previous draw Performed By: #### 0 0121, 78903 ####[facility] Hematocrit (HCT) 37.6 % Normal 36.0-45.0 [facility] Comment on above: Order Comment: No: D o not add to previous draw Performed By: #### 0 0121, 39987 ####[facility] [place] [address], [facility] Hemoglobin mass conc (Bld) 12.5 g/dL Normal 12.0-15.0 [facility] Comment on above: Order Comment: No: D o not add to previous draw Performed By: #### 0 0121, 20683 ####[facility] MCH 30.1 pg Normal 27.0-33.0 [facility] Comment on above: Order Comment: No: D o not add to previous draw Performed By: #### 0 0121, 83131 ####[facility] MCHC mass conc (RBC) 33.2 g/dL Normal 32.0-35.0 [facility] Comment on above: Order Comment: No: D o not add to previous draw Performed By: #### 0 0121, 10465 ####[facility] MCV 90.6 fL Normal 82.0-98.0 [facility] Comment on above: Order Comment: No: D o not add to previous draw Performed By: #### 0 0121, 60345 ####[facility] PLAT CNT 89 10*3/uL Low 150-400 [facility] Comment on above: Order Comment: No: D o not add to previous draw Performed By: #### 0 0121, 29938 ####[facility] WBC (Leukocytes) 13.5 10*3/uL High 4.0-10.6 [facility] Comment on above: Order Comment: No: D o not add to previous draw Performed By: #### 0 0121, 41529 ####[facility] HEMATOCRITon 08-12-2017 Hematocrit (HCT) 37.6 % Normal 36.0-45.0 [facility] Comment on above: Order Comment: No: D o not add to previous draw Performed By: #### 0 0121, 54484 ####[facility] HEMOGLOBINon 08-12-2017 Hemoglobin mass conc (Bld) 12.6 g/dL Normal 12.0-15.0 [facility] Comment on above: Order Comment: No: D o not add to previous drawLAB DRAW NOW - PER CECY MCELROY Performed By: #### 0 0121, 22862 ####[facility] MAGNESIUM BLOODon 08-12-2017 Magnesium 1.9 mg/dL Normal 1.9-2.7 [facility] Comment on above: Order Comment: No: D o not add to previous draw Performed By: #### 0 0121, 27857 ####[facility] PHOSPHORUS BLOODon 8 Phosphate 2.1 mg/dL Low 2.5-5.0 [facility] Comment on above: Order Comment: No: D o not add to previous draw Performed By: #### 0 0121, 04576 ####[facility] PORTABLE CHEST 1 VIEWon PORTABLE CHEST 1 VIEW [facility] [address] [place], [place] [address] Sera ent Name: JUDITH KHAN : 1945Sex: FAge: Race: WhiteMRN: [id number]. Location: [id number] Status: IVisit #: [id number] Date: 08/12/2017 7:00:00 AMCompleted Date: 08/12/2017 09:16 AMRequesting Provider: SHANON HERNANDEZ Attending Provider: ALEXANDER OLSON Report Copy To: Signs & Symptoms: O2 DesaturationHistory: Patient history not availableComments: R/O AtelectasisExam: PORTABLE CHEST 1 VIEWAccession #: [id number] ===PORTABLE CHEST 1 VIEW 08/12/2017 9:16 AM [...] findings. Electronically signed by:Kristian Nascimento. Transcribed by: [email or web address], User Resident: ANDRZEJ TORRESElectronically Signed by: KRISTIAN NASCIMENTO @ 08/12/2017 12:27 PMI personally read this/these film(s) with this resident Normal [facility] Comment on above: Order Comment: R/O A telectasis ALCOHOLon 08-11-2017 Ethanol NONE DETECTED Normal [facility] Comment on above: Result Comment: Divi de by 1000 to convert mg/dL to percent. Example: 100mg/dL = 0.1%. Performed By: #### 1 0054, 82604 ####[facility] [place] [address], [facility] APTTon 08-11-2017 aPTT 42.8 s High 25.0-35.0 [facility] Comment on above: Order Comment: No: [...] THIS PURPOSE. Performed By: #### 1 53, ####[facility] aPTT 27.2 s Normal 25.0-35.0 [facility] Comment on above: Result Comment: ALL [...] THIS PURPOSE. Performed By: #### 5 6101, 54435 ####[facility] ARTERIAL BLOOD GAS WITH ICAo n 08-11-2017 BASE EXCESS -7 mmol/L Low -2-2 [facility] Comment on above: Performed By: #### 1 ####[facility] Bicarbonate (HCO3) 18 mmol/L Low 23-27 [facility] Comment on above: Performed By: #### 1 53, ####[facility] CO2 34 mmHg Low 35-45 [facility] Comment on above: Performed By: #### 1 53, ####[facility] DELIVERY SYSTEMS MV Normal [facility] Comment on above: Performed By: #### 1 ####[facility] [place] [address], [place] FIO2 40 % Normal 21-100 [facility] Comment on above: Performed By: #### 1 ####[facility] [place] [address], [place] IONIZED CALCIUM 1.13 mmol/L Normal 1.13-1.32 [facility] Comment on above: Performed By: #### 1 ####[facility] [place] [address], [place] MIN VOLUME 7.2 Normal [facility] Comment on above: Performed By: #### 1 ####[facility] [place] [address], [place] MODALITY AC Normal [facility] Comment on above: Performed By: #### 1 ####[facility] [place] [address], [place] O2 saturation 95.5 % Normal 94.0-97.0 [facility] Comment on above: Performed By: #### 1 ####[facility] [place] [address], [place] Oxygen in arterial blood 161 mm[Hg] Critically high 75-100 [facility] Comment on above: Performed By: #### 1 ####[facility] [place] [address], [place] PEEP 5.0 CMH20 Normal [facility] Comment on above: Performed By: #### 1 ####[facility] [place] [address], [place] PF RATIO 403 mmHg High 50-400 [facility] Comment on above: Performed By: #### 1 53, ####[facility] [place] [address], [facility] pH of blood 7.33 [pH] Low 7.35-7.45 [facility] Comment on above: Performed By: #### 1 53, ####[facility] [facility] Respiratory rate 16 /min Normal [facility] Comment on above: Performed By: #### 1 53, ####[facility] TIDAL VOLUME (VT) CC 450 Normal [facility] Comment on above: Performed By: #### 1 53, ####[facility] [facility] BASE EXCESS -9 mmol/L Low -2-2 [facility] Comment on above: Order Comment: RESUL TS CHECKED AND CALLED. ACCURATELY READ BACK BY DAT Performed By: #### 1 ####[facility] [facility] Bicarbonate (HCO3) 18 mmol/L Low 23-27 [facility] Comment on above: Order Comment: RESUL TS CHECKED AND CALLED. ACCURATELY READ BACK BY DAT Performed By: #### 1 ####[facility] [place] [address], [facility] CO2 44 mmHg Normal 35-45 [facility] Comment on above: Order Comment: RESUL TS CHECKED AND CALLED. ACCURATELY READ BACK BY DAT Performed By: #### 1 ####[facility] [place] [address], [facility] IONIZED CALCIUM 1.05 mmol/L Low 1.13-1.32 [facility] Comment on above: Order Comment: RESUL TS CHECKED AND CALLED. ACCURATELY READ BACK BY DAT Performed By: #### 1 53, ####[facility] [place] [address], [facility] O2 saturation 96.9 % Normal 94.0-97.0 [facility] Comment on above: Order Comment: RESUL TS CHECKED AND CALLED. ACCURATELY READ BACK BY DAT Performed By: #### 1 53, ####[facility] [place] [address], [facility] Oxygen in arterial blood 532 mm[Hg] Critically high 75-100 [facility] Comment on above: Order Comment: RESUL TS CHECKED AND CALLED. ACCURATELY READ BACK BY DAT Performed By: #### 1 53, ####[facility] pH of blood 7.22 [pH] Critically low 7.35-7.45 [facility] Comment on above: Order Comment: RESUL TS CHECKED AND CALLED. ACCURATELY READ BACK BY DAT Performed By: #### 1 53, ####[facility] [facility] BASIC METABOLIC PANELon 03-0 Calcium 8.1 mg/dL Low 8.6-10.3 [facility] Comment on above: Order Comment: No: D o not add to previous draw Performed By: #### 1 53, ####[facility] [place] [address], [facility] Chloride 116 mmol/L High 98-107 [facility] Comment on above: Order Comment: No: D o not add to previous draw Performed By: #### 1 53, ####[facility] Creatinine 0.85 mg/dL Normal 0.60-1.20 [facility] Comment on above: Order Comment: No: D o not add to previous draw Performed By: #### 1 53, ####[facility] [place] [address], [place] Glucose mass conc 109 mg/dL High 70-100 [facility] Comment on above: Order Comment: No: D o not add to previous draw Performed By: #### 1 53, ####[facility] [place] [address], [place] Potassium molar conc 4.9 mmol/L Normal 3.5-5.1 [facility] Comment on above: Order Comment: No: D o not add to previous draw Performed By: #### 1 53, ####[facility] [place] [address], [place] Sodium 142 mmol/L Normal 136-145 [facility] Comment on above: Order Comment: No: D o not add to previous draw Performed By: #### 1 53, ####[facility] [place] [address], [place] Urea nitrogen 16 mg/dL Normal 7-25 [facility] Comment on above: Order Comment: No: D o not add to previous draw Performed By: #### 1 53, ####[facility] [place] [address], [place] Calcium 7.9 mg/dL Low 8.6-10.3 [facility] Comment on above: Order Comment: No: D o not add to previous draw Performed By: #### 1 53, ####[facility] [place] [address], [place] Chloride 113 mmol/L High 98-107 [facility] Comment on above: Order Comment: No: D o not add to previous draw Performed By: #### 1 53, ####[facility] [place] [address], [place] CO2 22 mmol/L Normal 21-31 [facility] Comment on above: Order Comment: No: D o not add to previous draw Performed By: #### 1 53, ####[facility] [facility].[address] Creatinine 0.68 mg/dL Normal 0.60-1.20 [facility] Comment on above: Order Comment: No: D o not add to previous draw Performed By: #### 1 53, ####[facility] [facility].[address] eGFR (black) mL/min/{1.73_m2} Normal >60 [facility] Comment on above: Order Comment: No: D o not add to previous draw Result Comment: Calc ulation may not be valid for patients over 70 years Performed By: #### 1 53, ####[facility] [facility].[address] eGFR (non-black) mL/min/{1.73_m2} Normal >60 [facility] Comment on above: Order Comment: No: D o not add to previous draw Result Comment: Calc ulation may not be valid for patients over 70 years Performed By: #### 1 53, ####[facility] [facility].[address] Glucose mass conc 141 mg/dL High 70-100 [facility] Comment on above: Order Comment: No: D o not add to previous draw Performed By: #### 1 53, ####[facility] [facility] [place] [address], [facility] Potassium molar conc 3.3 mmol/L Low 3.5-5.1 [facility] Comment on above: Order Comment: No: D o not add to previous draw Performed By: #### 1 53, ####[facility] Sodium 139 mmol/L Normal 136-145 [facility] Comment on above: Order Comment: No: D o not add to previous draw Performed By: #### 1 53, ####[facility] Urea nitrogen 12 mg/dL Normal 7-25 [facility] Comment on above: Order Comment: No: D o not add to previous draw Performed By: #### 1 53, ####[facility] CBC W/DIFFon 08-11-2017 ABS BASOPHILS 0.0 10*3/uL Normal 0.0-0.2 [facility] Comment on above: Performed By: #### 1 53, ####[facility] ABS IMM GRANS 0.0 10*3/uL Normal 0.0-0.2 [facility] Comment on above: Performed By: #### 1 53, ####[facility] Basophils Auto #/vol (Bld) 0.1 % Normal 0.0-1.0 [facility] Comment on above: Performed By: #### 1 53, ####[facility] Eosinophils 0.0 10*3/uL Normal 0.0-0.5 [facility] Comment on above: Performed By: #### 1 53, ####[facility] Eosinophils/100 leukocytes 0.1 % Normal 0.0-6.0 [facility] Comment on above: Performed By: #### 1 53 ####[facility] Erythrocyte distribution width Auto Ratio (RBC) 15.1 % High 11.5-15.0 [facility] Comment on above: Performed By: #### 1 ####[facility] Erythrocytes (RBC) 0 % Normal 0-0 [facility] Comment on above: Performed By: #### 1 ####[facility].[address] Erythrocytes (RBC) 4.46 10*6/uL Normal 3.80-5.00 [facility] Comment on above: Performed By: #### 1 ####[place] [id number] [facility].[address] Hematocrit (HCT) 40.3 % Normal 36.0-45.0 [facility] Comment on above: Performed By: #### 1 ####[place] [id number] [facility].[address] Hemoglobin mass conc (Bld) 13.5 g/dL Normal 12.0-15.0 [facility] Comment on above: Performed By: #### 1 ####[facility].[address] IMMATURE GRANS 0.2 % Normal 0.0-1.0 [facility] Comment on above: Performed By: #### 1 ####[place] [id number] [facility].[address] Lymphocytes 0.9 10*3/uL Low 1.2-4.0 [facility] Comment on above: Performed By: #### 1 ####[address] [place] [address], [facility] Lymphocytes/100 leukocytes 5.8 % Low 20.0-45.0 [facility] Comment on above: Performed By: #### 1 ####[facility] MCH 30.3 pg Normal 27.0-33.0 [facility] Comment on above: Performed By: #### 1 ####[facility] MCHC mass conc (RBC) 33.5 g/dL Normal 32.0-35.0 [facility] Comment on above: Performed By: #### 1 ####[place] [id number] [facility].[address] MCV 90.4 fL Normal 82.0-98.0 [facility] Comment on above: Performed By: #### 1 ####[facility].[address] Monocytes 0.7 10*3/uL Normal 0.1-1.0 [facility] Comment on above: Performed By: #### 1 ####[facility].[address] MONOS 4.6 % Low 5.0-12.0 [facility] Comment on above: Performed By: #### 1 ####[facility] [facility] [place] [address], [facility] Neutrophils 13.6 10*3/uL High 1.6-7.6 [facility] Comment on above: Performed By: #### 1 ####[facility] Neutrophils/100 leukocytes 89.2 % High 40.0-72.0 [facility] Comment on above: Performed By: #### 1 53, ####[facility] [facility].[address] PLAT CNT 94 10*3/uL Low 150-400 [facility] Comment on above: Result Comment: P = 126 Performed By: #### 1 53, ####[facility] WBC (Leukocytes) 15.2 10*3/uL High 4.0-10.6 [facility] Comment on above: Performed By: #### 1 53, ####[facility] [facility].[address] ABS BASOPHILS 0.0 10*3/uL Normal 0.0-0.2 [facility] Comment on above: Performed By: #### 5 102 ####[facility] [facility].[address] ABS IMM GRANS 0.1 10*3/uL Normal 0.0-0.2 [facility] Comment on above: Performed By: #### 5 102 ####[facility] Basophils Auto #/vol (Bld) 0.3 % Normal 0.0-1.0 [facility] Comment on above: Performed By: #### 5 102 ####[facility] [facility] [place] [address], [facility] Eosinophils 0.0 10*3/uL Normal 0.0-0.5 [facility] Comment on above: Performed By: #### 102 ####[facility] [facility] [place] [address], [facility] Eosinophils/100 leukocytes 0.2 % Normal 0.0-6.0 [facility] Comment on above: Performed By: #### 5 0103 ####[facility] Erythrocyte distribution width Auto Ratio (RBC) 14.3 % Normal 11.5-15.0 [facility] Comment on above: Performed By: #### 5 0103 ####[facility] Erythrocytes (RBC) 3.50 10*6/uL Low 3.80-5.00 [facility] Comment on above: Performed By: #### 5 0103 ####[facility] Erythrocytes (RBC) 0 % Normal 0-0 [facility] Comment on above: Performed By: #### 5 0103 ####[facility] Hematocrit (HCT) 32.5 % Low 36.0-45.0 [facility] Comment on above: Performed By: #### 5 0103 ####[facility] Hemoglobin mass conc (Bld) 10.9 g/dL Low 12.0-15.0 [facility] Comment on above: Performed By: #### 5 0103 ####[facility] IMMATURE GRANS 0.4 % Normal 0.0-1.0 [facility] Comment on above: Performed By: #### 5 0103 ####[facility] Lymphocytes 2.3 10*3/uL Normal 1.2-4.0 [facility] Comment on above: Performed By: #### 5 0103 ####[facility] [place] [address], [facility] Lymphocytes/100 leukocytes 17.6 % Low 20.0-45.0 [facility] Comment on above: Performed By: #### 5 0103 ####[facility] [place] [address], [facility] MCH 31.1 pg Normal 27.0-33.0 [facility] Comment on above: Performed By: #### 5 0103 ####[facility] MCHC mass conc (RBC) 33.5 g/dL Normal 32.0-35.0 [facility] Comment on above: Performed By: #### 5 0103 ####[facility] [facility] [place] [address], [facility] MCV 92.9 fL Normal 82.0-98.0 [facility] Comment on above: Performed By: #### 5 0103 ####[facility] [place] [address], [facility] Monocytes 0.8 10*3/uL Normal 0.1-1.0 [facility] Comment on above: Performed By: #### 5 0103 ####[facility] [place] [address], [facility] MONOS 6.1 % Normal 5.0-12.0 [facility] Comment on above: Performed By: #### 5 0103 ####[facility] [place] [address], [facility] Neutrophils 9.7 10*3/uL High 1.6-7.6 [facility] Comment on above: Performed By: #### 5 0103 ####[facility] [place] [address], [facility] Neutrophils/100 leukocytes 75.4 % High 40.0-72.0 [facility] Comment on above: Performed By: #### 5 0103 ####[facility] PLAT CNT 126 10*3/uL Low 150-400 [facility] Comment on above: Performed By: #### 5 0103 ####[facility] WBC (Leukocytes) 12.9 10*3/uL High 4.0-10.6 [facility] Comment on above: Performed By: #### 5 0103 ####[facility] COMP METABOLIC PANELon 08-11 Alanine aminotransferase (ALT) 8 U/L Normal 7-52 [facility] Comment on above: Performed By: #### 0 0121, [id number] ####[facility] Albumin 2.6 g/dL Low 3.5-5.7 [facility] Comment on above: Performed By: #### 0 0121, 19707 ####[facility] ALKALINE PHOSPH 34 IU/L Normal 34-104 [facility] Comment on above: Performed By: #### 0 0121, [id number] ####[facility] Aspartate aminotransferase (AST) 11 U/L Low 13-39 [facility] Comment on above: Performed By: #### 0 0121, 71470 ####[facility] Bilirubin (total) 0.7 mg/dL Normal 0.3-1.0 [facility] Comment on above: Performed By: #### 0 0121, [id number] ####[facility] [place] [address], [facility] Calcium 7.4 mg/dL Low 8.6-10.3 [facility] Comment on above: Performed By: #### 0 0121, 78140 ####[facility] [place] [address], [place] Chloride 112 mmol/L High 98-107 [facility] Comment on above: Performed By: #### 0 0121, [id number] ####[facility] [place] [address], [place] CO2 22 mmol/L Normal 21-31 [facility] Comment on above: Performed By: #### 0 0121, 00607 ####[facility] [place] [address], [facility] Creatinine 0.83 mg/dL Normal 0.60-1.20 [facility] Comment on above: Performed By: #### 0 0121, [id number] ####[facility] [facility] [place] [address], [facility] eGFR (black) mL/min/{1.73_m2} Normal >60 [facility] Comment on above: Result Comment: Calc ulation may not be valid for patients over 70 years Performed By: #### 0 0121, [id number] ####[facility] [facility] [place] [address], [facility] eGFR (non-black) mL/min/{1.73_m2} Normal >60 Th [facility] Comment on above: Result Comment: Calc ulation may not be valid for patients over 70 years Performed By: #### 0 0121, 27102 ####[facility] [place] [address], [place] Glucose mass conc 138 mg/dL High 70-100 [facility] Comment on above: Performed By: #### 0 0121, 63111 ####[facility] [place] [address], [facility] Potassium molar conc 4.0 mmol/L Normal 3.5-5.1 [facility] Comment on above: Performed By: #### 0 0121, 73868 ####[facility] [facility] [place] [address], [facility] Protein 4.1 g/dL Low 6.0-8.3 [facility] Comment on above: Performed By: #### 0 0121, [id number] ####[facility] [facility] [place] [address], [facility] Sodium 138 mmol/L Normal 136-145 [facility] Comment on above: Performed By: #### 0 0121, 37801 ####[facility] [facility] [place] [address], [facility] Urea nitrogen 16 mg/dL Normal 7-25 [facility] Comment on above: Performed By: #### 0 0121, 63108 ####[facility] [facility].[address] Consultationon 08-11-2017 Consultation MR#: [id number] Pt. Name: Judith Khan Date of Service: 08/10/2017 Room #: SIC [id number] Birthdate: 1945 Referring Physician: CONSULTATIONREASON FOR CONSULTATION: Critical care management status post splenectomy,ventilatory management.HISTORY OF PRESENT ILLNESS: Ms. Judith Khan is a 72-year-old female witha history of hypertension, hyperlipidemia, diabetes, and COPD, whopresented as a transfer from [place], [place] with a traumatic brain injury.The patient [...] She presented to the hospital in [place], [place], and aCT abdomen and pelvis was obtained that demonstrated a grade 5 spleniclaceration. The patient was initially hemodynamically stable per reportsfrom the outside facility, however she became markedly hypotensive,unresponsive to multiple fluid boluses, and was transferred [facility] as a level 1 trauma. When she [facility], she had received 3 L of crystalloid and 4 units of blood atthat time and only transiently responded to this fluid resuscitation. Shewas hypotensive in the [facility] and an emergent right femoral Cordis wasplaced [...] chronic obstructivepulmonary disease, not on home O2; fvh-juihdnt-wieqonrgw diabetes mellitus,type 2; anxiety.PAST SURGICAL HISTORY: Hysterectomy, [...] outside facilityreviewed with attending surgeon in [facility] with evidence of rupturedspleen with blood products [...] past. GCS is 15reported in the [facility], currently GCS is 3T, intubated and sedated.She [...] the setting ofcritical care status.Endocrine: History of ykj-gifpuif-csnrthfsq diabetes mellitus, type 2, onhome metformin. We [...] was placed in emergent setting in the[facility], this will be removed/replaced within 24 hours [...] Dict: 08/11/2017/04:38 A/Pippa Gutierrez Trans: 08/11/2017 02:22 P/peteoDTeresa_[id number] Normal [facility] FRESH FROZEN PLASMA 2 UNITSo n 08-11-2017 PRODUCT CODE 1 E2701 Normal [facility] Comment on above: Order Comment: INR: 1.22 ,PTT: 27.2 at the time of order ;Indication: Activebleeding/invasive procedure with prolonged PT/PTT or INR > 1.6 Performed By: #### 1 53, ####[facility] PRODUCT CODE 2 E2701 Normal [facility] Comment on above: Order Comment: INR: 1.22 ,PTT: 27.2 at the time of order ;Indication: Activebleeding/invasive procedure with prolonged PT/PTT or INR > 1.6 Performed By: #### 1 53, ####[facility] [facility].[address] PRODUCT STATUS [address] [facility] Comment on above: Order Comment: INR: 1.22 ,PTT: 27.2 at the time of order ;Indication: Activebleeding/invasive procedure with prolonged PT/PTT or INR > 1.6 Result Comment: Resu lt changed by IF on 08/11/2017 00:27. The previous value was XX.Result changed by IF on 08/12/2017 02:00. The previous value was IS. Performed By: #### 1 53, ####[facility] [facility].[address] PRODUCT STATUS 2 PT Normal [facility] Comment on above: Order Comment: INR: 1.22 ,PTT: 27.2 at the time of order ;Indication: Activebleeding/invasive procedure with prolonged PT/PTT or INR > 1.6 Result Comment: Resu lt changed by IF on 08/11/2017 03:17. The previous value was XM.Result changed by IF on 08/13/2017 02:00. The previous value was IS. Performed By: #### 1 53, ####[facility] UNIT ABO 1 O Normal [facility] Comment on above: Order Comment: INR: 1.22 ,PTT: 27.2 at the time of order ;Indication: Activebleeding/invasive procedure with prolonged PT/PTT or INR > 1.6 Performed By: #### 1 53, ####[facility] UNIT ABO [address] [facility] Comment on above: Order Comment: INR: 1.22 ,PTT: 27.2 at the time of order ;Indication: Activebleeding/invasive procedure with prolonged PT/PTT or INR > 1.6 Performed By: #### 1 53, ####[facility] UNIT ID 1 [id number] Normal [facility] Comment on above: Order Comment: INR: 1.22 ,PTT: 27.2 at the time of order ;Indication: Activebleeding/invasive procedure with prolonged PT/PTT or INR > 1.6 Performed By: #### 1 53, ####[facility] UNIT ID 2 [id number] Normal [facility] Comment on above: Order Comment: INR: 1.22 ,PTT: 27.2 at the time of order ;Indication: Activebleeding/invasive procedure with prolonged PT/PTT or INR > 1.6 Performed By: #### 1 53, ####[facility] UNIT RH 1 Positive Normal [facility] Comment on above: Order Comment: INR: 1.22 ,PTT: 27.2 at the time of order ;Indication: Activebleeding/invasive procedure with prolonged PT/PTT or INR > 1.6 Performed By: #### 1 53, ####[facility] [facility].[address] UNIT RH 2 Negative Normal [facility] Comment on above: Order Comment: INR: 1.22 ,PTT: 27.2 at the time of order ;Indication: Activebleeding/invasive procedure with prolonged PT/PTT or INR > 1.6 Performed By: #### 1 53, ####[facility] [facility] [place] [place] [address], [facility] HEMATOCRITon 08-11-2017 Hematocrit (HCT) 37.7 % Normal 36.0-45.0 [facility] Comment on above: Order Comment: No: D o not add to previous draw Performed By: #### 1 53, ####[facility] [facility].[address] Hematocrit (HCT) 34.8 % Low 36.0-45.0 [facility] Comment on above: Order Comment: No: D o not add to previous draw Performed By: #### 1 53, ####[facility] [facility].[address] HEMOGLOBINon 08-11-2017 Hemoglobin mass conc (Bld) 12.7 g/dL Normal 12.0-15.0 [facility] Comment on above: Order Comment: No: D o not add to previous drawLAB DRAW NOW - PER CECY MCELROY Performed By: #### 1 53, ####[facility] [facility].[address] Hemoglobin mass conc (Bld) 11.8 g/dL Low 12.0-15.0 [facility] Comment on above: Order Comment: No: D o not add to previous draw Performed By: #### 1 53, ####[facility] [facility].[address] History and Physicalon 08-11 History and Physical MR#: [id number] Pt. Name: Judith Khan Admitted: 08/11/2017 Date of : 1945 Attending Physician: Alexander Olson M.D. Room #: [facility] [id number] Discharge Date: HISTORY AND PHYSICALCHIEF COMPLAINT: Trauma [...] other blood products. [facility] [...] they were fluctuating while in the [facility],stabilized with fluid.GENERAL: Alert and oriented, no acute [...] Dict: 08/11/2017/12:27 A/SUKHJINDER Delgadoate Trans: 08/11/2017 08:41 A/Izabela_JN:[id number] Normal [facility] LACTATE BLOODon 08-11-2017 Lactate 1.1 mmol/L Normal .5-2.2 [facility] Comment on above: Order Comment: No: D o not add to previous draw Performed By: #### 1 53, ####[facility] [place] [address], [facility] Lactate 1.3 mmol/L Normal .5-2.2 [facility] Comment on above: Performed By: #### 1 53, ####[facility] [place] [address], [facility] LIPASE BLOODon 08-11-2017 Lipase 13 Units/L Normal 11-82 [facility] Comment on above: Performed By: #### 0 0121, [id number] ####[facility] [place] [address], [place] LIVER BATTERYon 08-11-2017 Alanine aminotransferase (ALT) 18 U/L Normal 7-52 [facility] Comment on above: Order Comment: No: D o not add to previous draw Performed By: #### 1 53, ####[facility] [place] [address], [facility] Albumin 2.8 g/dL Low 3.5-5.7 [facility] Comment on above: Order Comment: No: D o not add to previous draw Performed By: #### 1 53, ####[facility] [place] [address], [facility] ALKALINE PHOSPH 36 IU/L Normal 34-104 [facility] Comment on above: Order Comment: No: D o not add to previous draw Performed By: #### 1 53, ####[facility] [place] [address], [place] Aspartate aminotransferase (AST) 30 U/L Normal 13-39 [facility] Comment on above: Order Comment: No: D o not add to previous draw Performed By: #### 1 53, ####[facility] [place] [address], [place] Bilirubin (direct) 0.2 mg/dL Normal 0.0-0.2 [facility] Comment on above: Order Comment: No: D o not add to previous draw Performed By: #### 1 53, ####[facility] [place] [address], [place] Bilirubin (total) 0.9 mg/dL Normal 0.3-1.0 [facility] Comment on above: Order Comment: No: D o not add to previous draw Performed By: #### 1 53, ####[facility] [facility].[address] Protein 4.0 g/dL Low 6.0-8.3 [facility] Comment on above: Order Comment: No: D o not add to previous draw Performed By: #### 1 53, ####[facility] [facility].[address] MAGNESIUM BLOODon 08-11-2017 Magnesium 1.4 mg/dL Low 1.9-2.7 [facility] Comment on above: Order Comment: No: D o not add to previous draw Performed By: #### 1 53, ####[facility]3000 [facility].[address] Operative Reporton 8 Operative Report MR#: [id number] [facility] Pt[facility] Name: Judith Khan Room #: SIC [id number] Discharge Date: Birthdate: 1945 OPERATIVE REPORTDATE OF SURGERY: 08/11/2017SURGEON: Alexander Olson M.D.ASSISTANTS: Aldo Villasenor M.D. PhD; ALEXANDER GutierrezREOPERATIVE DIAGNOSES: Traumatic splenic rupture.POSTOPERATIVE DIAGNOSIS: Traumatic splenic rupture.PROCEDURE: Splenectomy for trauma.INDICATION: This is a 72-year-old white female, [facility] [...] 08/11/2017/06:29 A/Aldo Villasenor MDDate Trans: 08/11/2017 03:54 P/mmoDN_JN:[id number] Normal [facility] PHOSPHORUS BLOODon 8 Phosphate 3.1 mg/dL Normal 2.5-5.0 [facility] Comment on above: Order Comment: No: D o not add to previous draw Performed By: #### 1 53, ####[facility] PLATELET APHERESIS 1 UNITon 08-11-2017 PRODUCT CODE [address] [facility] Comment on above: Order Comment: Plt c ount at the time of order: 126 ;Indication: Platelet-inhibitingdrug therapy with invasive procedure/bleeding Performed By: #### 1 53, [id number] ####[facility] [place] [address], [facility] PRODUCT STATUS 1 PT Normal [facility] Comment on above: Order Comment: Plt c ount at the time of order: 126 ;Indication: Platelet-inhibitingdrug therapy with invasive procedure/bleeding Result Comment: Resu lt changed by IF on 08/11/2017 00:20. The previous value was XM.Result changed by IF on 08/12/2017 02:00. The previous value was IS. Performed By: #### 1 53, ####[facility] [place] [address], [facility] UNIT ABO 1 O Normal [facility] Comment on above: Order Comment: Plt c ount at the time of order: 126 ;Indication: Platelet-inhibitingdrug therapy with invasive procedure/bleeding Performed By: #### 1 53, ####[facility]3000 [facility].[address] UNIT ID 1 [id number] Normal [facility] Comment on above: Order Comment: Plt c ount at the time of order: 126 ;Indication: Platelet-inhibitingdrug therapy with invasive procedure/bleeding Performed By: #### 1 53, ####[facility]3000 [facility] [place] [place] [address], [facility] UNIT RH 1 Positive Normal [facility] Comment on above: Order Comment: Plt c ount at the time of order: 126 ;Indication: Platelet-inhibitingdrug therapy with invasive procedure/bleeding Performed By: #### 1 53, ####[facility] [place] [address], [facility] POC GLUCOSE LABon 08-11-2017 Glucose mass conc 100 mg/dL Normal 70-100 [facility] Comment on above: Performed By: #### 1 53, ####[facility] [place] [address], [facility] PORTABLE ABDOMENon 8 PORTABLE ABDOMEN [facility] [address] [place] [address] Sera ent Name: JUDITH KHAN : 1945Sex: FAge: Race: WhiteMRN: [id number]. Location: EMERPatient Status: IVisit #: [id number] Date: 08/11/2017 12:35:00 AMCompleted Date: 08/11/2017 01:07 AMRequesting Provider: ALEXANDER OLSON Attending Provider: ALEXANDER OLSON Report Copy To: Signs & Symptoms: Intra-op portable abdomenHistory: R/O foreign bodyComments: R/O foreign bodyExam: PORTABLE ABDOMENAccession #: [id number] ===PORTABLE ABDOMEN 08/11/2017 1:07 AM EST SIGNS [...] findings. Electronically signed by:Kristian Nascimento. Transcribed by: [email or web address], User Resident: NICOLETTE TOTHANElectronically Signed by: KRISTIAN NASCIMENTO @ 08/11/2017 12:16 PMI personally read this/these film(s) with this resident Normal [facility] Comment on above: Order Comment: R/O f oreign body PORTABLE CHEST 1 VIEWon PORTABLE CHEST 1 VIEW [facility] [address] [place] [address] Sera ent Name: JUDITH KHAN : 1945Sex: FAge: Race: WhiteMRN: [id number]. Location: [id number] Status: IVisit #: [id number] Date: 08/11/2017 1:45:00 AMCompleted Date: 08/11/2017 02:13 AMRequesting Provider: CARMENZA WINTER Attending Provider: ALEXANDER OLSON Report Copy To: Signs & Symptoms: Post OPHistory: Patient history not availableComments: Check E.T. Position, also to chest OGT placementExam: PORTABLE CHEST 1 VIEWAccession #: [id number] ===PORTABLE CHEST 1 VIEW 08/11/2017 2:13 AM [...] findings. Electronically signed by:Kristian Nascimento. Transcribed by: [email or web address], User Resident: NICOLETTE TOTHANElectronically Signed by: KRISTIAN NASCIMENTO @ 08/11/2017 12:17 PMI personally read this/these film(s) with this resident Normal [facility] Comment on above: Order Comment: Check E.T. Position, also to chest OGT placement PROTHROMBIN TIMEon 8 INR Coag RelTime (PPP) 1.44 {INR} High 0.91-1.16 [facility] Comment on above: Order Comment: No: [...] OF ACTION, CLINICALEFFECTIVENESS, AND OPTIMAL THERAPEUTIC RANGE. [id number];108:231S-246S. Performed By: #### 1 53, ####[facility] Prothrombin time (PT) Coag time (PPP) 17.7 s High 12.3-14.8 [facility] Comment on above: Order Comment: No: D o not add to previous draw Result Comment: ALL RESULTS MUST BE INTERPRETED WITH RESPECT TO BLOOD DRAWING ARTIFACTOR DILUTION ERROR OF ANTICOAGULANT AT THE TIME OF SAMPLING. Performed By: #### 1 53, ####[facility]3000 [facility].[address] INR Coag RelTime (PPP) 1.22 {INR} High 0.91-1.16 [facility] Comment on above: Result Comment: ACCC P RECOMMENDED INR FOR WARFARIN THERAPY CONDITION INRPROPHYLAXIS OF VENOUS THROMBOSIS 2-3(HIGH-RISK SURGERY)TREATMENT OF VENOUS THROMBOSIS 2-3TREATMENT OF PULMONARY EMBOLISM 2-3PREVENTION OF SYSTEMIC EMBOLISM: 2-3 ACUTE MYOCARDIAL INFARCTION TISSUE HEART VALVES VALVULAR HEART DISEASE ATRIAL FIBRILLATION RECURRENT SYSTEMIC EMBOLISMMECHANICAL HEART VALVE 2.5-3.5 FROM: ORAL ANTICOAGULANTS. MECHANISM OF ACTION, CLINICALEFFECTIVENESS, AND OPTIMAL THERAPEUTIC RANGE. [id number];108:231S-246S. Performed By: #### 5 6101, 18162 ####[facility] [place] [address], [place] Prothrombin time (PT) Coag time (PPP) 15.5 s High 12.3-14.8 [facility] Comment on above: Result Comment: ALL RESULTS MUST BE INTERPRETED WITH RESPECT TO BLOOD DRAWING ARTIFACTOR DILUTION ERROR OF ANTICOAGULANT AT THE TIME OF SAMPLING. Performed By: #### 5 6101, [id number] ####[facility] [place] [address], [place] RBC'S 4 UNITSon 08-11-2017 CROSSMATCH INTERP [address] [facility] Comment on above: Performed By: #### 8 6004 ####[facility] [place] [address], [place] CROSSMATCH INTERP 2 COMP Normal [facility] Comment on above: Performed By: #### 8 6004 ####[facility] [place] [address], [place] CROSSMATCH INTERP 3 COMP Normal [facility] Comment on above: Performed By: #### 8 6004 ####[facility] [place] [address], [place] CROSSMATCH INTERP 4 COMP Normal [facility] Comment on above: Performed By: #### 8 6004 ####[facility] [place] [address], [place] PRODUCT CODE 1 E0686 Normal [facility] Comment on above: Performed By: #### 8 6004 ####[facility] [place] [address], [place] PRODUCT CODE 2 E0336 Normal [facility] Comment on above: Performed By: #### 8 6004 ####[facility] PRODUCT CODE 3 E0336 Normal [facility] Comment on above: Performed By: #### 8 6004 ####[facility] [place] [address].[place] [address], [facility] PRODUCT CODE 4 E0336 Normal [facility] Comment on above: Performed By: #### 8 6004 ####[address] PRODUCT STATUS 1 RE Normal [facility] Comment on above: Result Comment: Resu lt changed by IF on 08/11/2017 00:26. The previous value was XM.Result changed by IF on 08/11/2017 01:42. The previous value was IS.Result changed by IF on 08/14/2017 07:03. The previous value was XM. Performed By: #### 8 6004 ####[address] PRODUCT STATUS 2 PT Normal [facility] Comment on above: Result Comment: Resu lt changed by IF on 08/11/2017 00:26. The previous value was XM.Result changed by IF on 08/12/2017 02:00. The previous value was IS. Performed By: #### 8 6004 ####[address] PRODUCT STATUS 3 RE Normal [facility] Comment on above: Result Comment: Resu lt changed by IF on 08/12/2017 15:16. The previous value was XX. Performed By: #### 8 6004 ####[address] [place] [address], [facility] PRODUCT STATUS 4 RE Normal [facility] Comment on above: Result Comment: Resu lt changed by IF on 08/11/2017 00:26. The previous value was XM.Result changed by IF on 08/11/2017 01:42. The previous value was IS.Result changed by IF on 08/14/2017 07:03. The previous value was XM. Performed By: #### 8 6004 ####[facility] [place] [address], [facility] UNIT ABO 1 O Normal [facility] Comment on above: Performed By: #### 8 6004 ####[facility] [place] [address], [facility] UNIT ABO 2 O Normal [facility] Comment on above: Performed By: #### 8 6004 ####[facility] [place] [address], [facility] UNIT ABO 3 O Normal [facility] Comment on above: Performed By: #### 8 6004 ####[facility] [place] [address], [facility] UNIT ABO 4 O Normal [facility] Comment on above: Performed By: #### 8 6004 ####[facility] [place] [address], [facility] UNIT ID 1 [id number] Normal [facility] Comment on above: Performed By: #### 8 6004 ####[facility] [place] [address], [facility] UNIT ID 2 [id number] Normal [facility] Comment on above: Performed By: #### 8 6004 ####[facility] [place] [address], [facility] UNIT ID 3 [id number] Normal [facility] Comment on above: Performed By: #### 8 6004 ####[facility] [place] [address], [facility] UNIT ID 4 [id number] Normal [facility] Comment on above: Performed By: #### 8 6004 ####[facility] [place] [address], [place] UNIT RH 1 Negative Normal [facility] Comment on above: Performed By: #### 8 6004 ####[facility] [place] [address], [place] UNIT RH 2 Negative Normal [facility] Comment on above: Performed By: #### 8 6004 ####[facility] [place] [address], [place] UNIT RH 3 Negative Normal [facility] Comment on above: Performed By: #### 8 6004 ####[facility] [place] [address], [place] UNIT RH 4 Negative Normal [facility] Comment on above: Performed By: #### 8 6004 ####[facility] [place] [address], [facility] SERUM TESTon 08-11 TEST Negative Normal [facility] Comment on above: Performed By: #### 4 6473 ####[facility] [facility] [place] [address], [facility] TYPE AND CROSSMATCHon 2017 ABO INTERPRETATION O Normal [facility] Comment on above: Performed By: #### 6 2594 ####[facility] [place] [address], [place] ANTIBODY SCREEN Negative Normal [facility] Comment on above: Performed By: #### 6 2594 ####[facility] [place] [address], [place] RH INTERPRETATION Negative Normal [facility] Comment on above: Performed By: #### 6 2594 ####[facility] [place] [address], [place] Vital Signs Date Time Vital Sign Value Performing Clinician Facility 06-23-2023 14:00-0500 [facility] 14:00-0500 Promise to Return [facility] 06-23-2023 13:00-0500 Hourly Rounding [facility] 06-23-2023 13:00-0500 Promise to Return [facility] 06-23-2023 12:00-0500 Hourly Rounding [facility] 06-23-2023 12:00-0500 Promise to Return [facility] 06-23-2023 11:22-0500 Heart rate 107 /min [facility] 06-23-2023 11:22-0500 SaO2% (BldA) [Mass fraction] 94 % [facility] 06-23-2023 11:21-0500 Diastolic blood pressure 82 mm[Hg] [facility] 06-23-2023 11:21-0500 Mean blood pressure 108 mm[Hg] [facility] 06-23-2023 11:21-0500 Systolic blood pressure 162 mm[Hg] [facility] 06-23-2023 11:20-0500 Body temperature 97.7 [degF] [facility] 06-23-2023 08:20-0500 SaO2% (BldA) [Mass fraction] 98 % [facility] 06-23-2023 07:19-0500 Heart rate 84 /min [facility] 06-23-2023 07:19-0500 SaO2% (BldA) [Mass fraction] 100 % [facility] 06-23-2023 07:18-0500 Body temperature 97.52 [degF] [facility] 06-23-2023 07:18-0500 Diastolic blood pressure 81 mm[Hg] [facility] 06-23-2023 07:18-0500 Mean blood pressure 99 mm[Hg] [facility] 06-23-2023 07:18-0500 Systolic blood pressure 137 mm[Hg] [facility] 06-23-2023 06:17-0500 Blood Pressure Location [facility] 06-23-2023 06:17-0500 Body temperature 97.52 [degF] [facility] 06-23-2023 06:17-0500 Diastolic blood pressure 74 mm[Hg] [facility] 06-23-2023 06:17-0500 Heart rate 99 /min [facility] 06-23-2023 06:17-0500 Respiratory rate 17 /min [facility] 06-23-2023 06:17-0500 Systolic blood pressure 159 mm[Hg] [facility] 06-23-2023 05:01-0500 Heart rate 102 /min [facility] 06-23-2023 05:01-0500 Mean blood pressure 98 mm[Hg] [facility] 06-23-2023 05:01-0500 Respiratory rate 19 /min [facility] 06-23-2023 04:30-0500 Mean blood pressure 95 mm[Hg] [facility] 06-23-2023 04:30-0500 Respiratory rate 16 /min [facility] 06-23-2023 03:00-0500 Mean blood pressure 121 mm[Hg] [facility] 06-23-2023 03:00-0500 Respiratory rate 20 /min [facility] 06-23-2023 02:43-0500 Respiratory rate 18 /min [facility] 06-23-2023 02:30-0500 Respiratory rate 18 /min [facility]ela [facility] 06-23-2023 01:40-0500 gluc 96 mg/dL Mela [facility] 06-23-2023 01:40-05[address] gluc M[address] [facility] 06-23-2023 01:38-0500 gluc 96 mg/dL Mela [facility] 06-23-2023 01:38-[address] [facility] 06-23-2023 01:37-0500 Heart rate 117 /min [facility] 05-15-2023 13:50-0500 Body height 167.64 cm MD Rodrick Sams Work Phone: [facility] 05-15-2023 13:50-0500 Body weight 57.15 kg MD Rodrick Sams Work Phone: [facility] Encounters Encounter Date Encounter Type Care Provider Facility Start: 07-16-2023 End: 07-16-2023 Emergency department patient visit Demarco Beaver Facility[facility] Start: 07-06-2023 End: 07-06-2023 ambulatory COOPER ROWLEY [facility] Start: 06-23-2023 End: 06-23-2023 ambulatory Mela Espinal Facility[facility] Start: 06-23-2023 End: 06-23-2023 Observation [facility] Start: 05-15-2023 End: 05-15-2023 ambulatory Cathie Reid Facility:[facility] Start: 05-15-2023 End: 05-15-2023 ambulatory MD Rodrick Sams Work Phone: [facility] Work Phone: Start: 05-15-2023 End: 05-15-2023 Patient encounter procedure MD Rodrick Sams Work Phone: [facility] [place] Work Phone: Start: 01-12-2023 End: 01-12-2023 ambulatory COOPER ROWLEY [facility] Start: 10-09-2022 End: 10-10-[address] RODRICK SAMS . Facility: Start: 07-19-2022 End: 07-19-2022 ambulatory STEPHENIE PRECIADO [facility] Start: 05-24-2022 End: 05-25-[address] RODRICK SAMS . Facility: Start: 05-08-2022 End: 05-10-2022 Evaluation and management of inpatient DR RODRICK SAMS . Facility: Start: 03-29-2022 End: 03-29-[address] MISAEL PEDRAZA . Facility: Start: 12-27-2021 End: 12-28-[address] RODRICK SAMS . Facility: Start: 08-13-2017 End: 08-14-2017 Ambulatory DEFAULT PHYSICIAN Facility:[facility] Start: 08-11-2017 End: 08-15-2017 Evaluation and management of inpatient REFERRED SELF Facility:[facility] Procedures Date Procedure Procedure Detail Performing [...] NONAUT RED BLOOD CELLS IN PERIPH VEIN, [facility] SU[facility] Irving HEIDT Appendectomy Mela Gennari Cataract (morphologi c abnormality) Mela Gennari Hysterectomy Mela Gennari Splenectomy Mela Gennari Payers Date Payer Category Payer Medicare [id number] 2023 Self-pay [id number] 1958 Medicare [id number] 1958 Unknown [id number] 1945 Unknown [id number] 2.16.84 [id number] 1945 Unknown [id number] 2.16.84 [id number] 1945 Unknown [id number] 2.16.84 [id number] 1945 Unknown [id number] 2.16.84 [id number] 1945 Unknown [id number] 2.16.84 [id number] 1945 Unknown [id number] 2.16.8 [id number] 1945 Unknown [id number] 2.16.8 [id number] Medicare [id number] Unknown Unknown [id number] 2.16.8 [id number] Social History Date Type Detail Facility Tobacco smoking stat [facility] Unknown if ever smoked [facility] Work Phone: Start: 1945 Sex Assigned At Female [facility] Start: 03-04-2020 Tobacco smoking status Ex-smoker (fi nding) [facility] Sex Assigned At Female [facility] Functional Status Date Assessment Result Facility 06-23-2023 Functional Status N/A [facility] 06-23-2023 Functional Status [facility] Clinical Notes 08-04-2020 to 07-08-2023 Note [...] JOANNA Kauffman Within 1 to 2 weeks [facility] [address] [place] [address]- Additional Instructions: Patient Education Weakness, Gizr-yd-Bezn Urinary Tract Infection, Adult [facility] Comment on above: Result Comment: Elec tronically Signed By: MATTHEW HERRERA, Haile\.br\Date and Time Signed: 07/08/23 16:24 EST 07-06-2023 Note Hypertension is stab le and well controlled Continue all meds as prescribed- norvasc, lisinopril- hydrochlorothiazide, metoprolol [facility] 07-06-2023 Note Hiatal hernia with c ompression on Lt atrium noted on TTE Referral to general surgery ordered [facility] 07-06-2023 Note UTP CARDIOLOGY PROGR ESS NOTE HPI: Judith Khan is a 78 y.o. female here for review echocardiogram Patient here for 6 mo follow up fatigue, hypertension, and hyperlipidemia. Metoprolol was put on hold at last apt in Jan 2023 to see if fatigue improved. A few weeks later she was admitted to [facility] for chest pain. Had another echo in May 2023, which showed hiatal hernia. Daughter states was admitted to [facility] recently for TIA symptoms and daughter [...] Plt Count 355 (150-450) 10^3/uL Emergency Department [id number] [facility] Patient name: JUDITH KHAN MPV 11.2 (9.5-13.5) fL Neut % (Auto) 22.9 L (43.0-75.0) % Lymph % (Auto) 55.8 (20.5-60.0) % Rich % (Auto) 13.5 H (1.7-12.0) % Eos % (Auto) 6.4 (0.9-7.0) % Baso % (Auto) 1.3 (0.2-2.0) % Neut # (Auto) 1.9 (1.4-6.5) 10^3/uL Lymph # (Auto) 4.6 H (1.2-3.8) 10^3/uL Rich # (Auto) 1.1 H (0.3-0.8) 10^3/uL Eos [...] >60 (>=60) Est (more content not included)... [facility] 07-06-2023 Note Patient here for 6 m o follow up fatigue, hypertension, and hyperlipidemia. Metoprolol was put on hold at last apt in Jan 2023 to see if fatigue improved. A few weeks later she was admitted to [facility] for chest pain. Had another echo in May 2023, which showed hiatal hernia. Daughter states was admitted to [facility] recently for TIA symptoms and daughter states she was treated for UTI. She's still not taking metoprolol and feels less tired without it. She denies chest pain, SOB, lightheadedness/syncope, and palpitations. Review of Systems Constitutional: Positive for malaise/fatigue (improving). Musculoskeletal: Positive for arthritis, back pain and joint pain. Neurological: Positive for tremors. All other systems reviewed and are negative. [facility] 06-30-2023 Note Microbiology PROCEDURE: Blood Culture Charcoal [R1] SOURCE: Blood BODY SITE: Arm L COLLECTED DATE/TIME: 06/23/2023 01:59 EST RECEIVED DATE/TIME: 06/23/2023 02:53 EST START DATE/TIME: 06/23/2023 02:53 EST FREE TEXT SOURCE: Thea Stacy, Augie Sidhu M.D., Augie Charlton FINAL REPORTS Final Report [] Verified Date/Time: 06/30/2023 07:00 EST No growth at 7 days. Performing Locations R1: This test was performed at: [facility], [address] [place] [address], [address] [place] [address], [facility] Comment on above: Performed By: #### 1 [id number] ####[facility] [id number] [place] [address] 06-30-2023 Note Microbiology PROCEDURE: Blood Culture Charcoal [...] Locations R1: This test was performed at: [facility], [address] [place] [address], [address] [place] [address], [facility] Comment on above: Performed By: #### 2 [id number], [id number] #### [facility] [address] [place] [address] 06-24-2023 Note Chief Complaint weakness Reason for [...] says she had an open MRI in [place] within the past few months which she [...] but reportedly she has MRI images in [place] within the past few months that did [...] Medical History On (more content not included)... [facility] Comment on above: Result Comment: Elec tronically Signed By: Tony Fuentes DO\Date and Time Signed: 06/24/23 09:29 EST 06-23-2023 Hospital Discharge instructions Patient Education 06/23/2023 16:31:59 Weakness, Jsdp-jy-Qffv Weakness Weakness is a lack of strength. [...] about working with a physical therapist or program trainer to help you get stronger. General instructions Take ezzd-tit-plkjscc and prescription medicines only as told by [...] provider. Document Revised: 04/30/2022 Document Reviewed: 04/30/2022 ON24 Patient Education 2022 [employer]. 06/23/2023 16:31:55 Urinary Tract Infection, Adult Urinary [...] Treatment for this condition includes: Antibiotic medicine. Wois-ddq-vpwintr medicines to treat discomfort. Drinking enough water [...] Follow these instructions at home: Medicines Take mbyj-ojr-vaqyedx and prescription medicines only as told by [...] provider. Document Revised: 01/07/2021 Document Reviewed: 01/07/2021 ON24 Patient Education 2022 [employer]. Follow Up Care 06/23/2023 01:35:45 With:Dani HERRERARamiro NEU Address: [place] [address] [place] [address]- When:1 to [address] [facility] 06-23-2023 Note Chief Complaint states went [...] out of bed to go the bathroom. [place] weak all over and just felt like [...] 01:55:00) Lymph Auto: 15.1 % (06/23/23 01:55:00) Rich Auto: 11.3 % (06/23/23 01:55:00) Eos Auto: 0.8 % (06/23/23 01:55:00) Basophil Auto: 0.4 % (06/23/23 01:55:00) Neutro Absolute: 10.5 E9/L High (06/23/23 01:55:00) Lymph Absolute: 2.2 E9/L (06/23/23 01:55:00) Rich Absolute: 1.6 E9/L High (06/23/23 01:55:00) Eos [...] 1.8 mg/dL (06/23/23 (more content not included)... [facility] Comment on above: Result Comment: [...] dc 06/23 or 06/24. CRM to follow. [facility] Comment on above: Result Comment: [...] but reportedly she has MRI images in [place] within the past few months that did [...] just had an MRI in May at [facility]. Consult Neurology PT Eval ordered 2. Hypoxia [...] Blood Culture Charcoal CBC w/ Auto Diff Vickery Stroke Scale Communication Order Physician to Nursing Continuous Pulse Oximetry CT Head or Brain w/o Contrast ECG 12 Lead Adult ED Cardiac Monitoring ED Physician consult Hospitalist for continued care eGFR Hepatic Function Panel Lactic Acid Magnesium Level NPO Diet Oxygen Therapy PT & PTT Rapid COVID Antigen ([facility]) Routine Capillary Glucose POC Saline Lock Insert Stroke Quality Measures Troponin 0 Hr. Troponin 3 Hr. Troponin 6 Hr. Troponin 9 Hr. TSH With T4fr Reflex UA With Cult Reflex Urine Culture Vital Signs XR Chest Single View Diagnostic Tests Pending * Blood Culture Charcoal 06/23/23 * Blood Culture Charcoal 06/23/23 * Urine Culture 06/23/[address] [facility]01-13-2024 NotePT Evaluation done this date. Pt. with 20/24 on AM-PAC this date. She feels she is at her baseline at this time, Recommend she uses her FWW at home as needed. She may benefit from outpatient PT for her Parkinson's. No further acute PT needs.[facility] 01-12-2023 NoteContinue [facility]Un[facility]23 Note Hypertension is elevated in office most likely r/t white coat syndrome States b/p at home is typically 120's/70'[facility] 01-12-2023 NoteWill have pt hold metoprolol and see if her fatigue improves Continue to monitor b/p at home and call office for b/p increase greater than 130/80 or for any concerns.[facility]08-04-2023 Note Patient here for 6 mo [...] tremors. All other systems reviewed and are negative.[facility] 01-12-2023 NoteUTP CARDIOLOGY PROGRESS NOTE HPI: [...] statin RTC 3-6 months or earlier if needed[facility] NoteCard[facility] Clinic Note Chief Complaint: New [...] history of COPD (chronic obstructive pulmonary disease) ([facility]), Hyperlipidemia, Hypertension, and Parkinson disease ([facility]). Surgical History She has a [...] months Radiology: XR chest 1 view Narrative: [facility] Department of Radiology [address] [place] [phone] (more content not included)...[facility]2023 NotePatient here for 2 mo follow up hypertension and hyperlipidemia. Says her SOB has resolved and she feels great. Denies chest pain. Review of Systems Neurological: Positive for tremors. All other systems reviewed and are negative.[facility] 08-04-2020 NotePatient Outreach (COVAMN) BILLJUDITH ([id number]) 1945 F Date Time Provider Department 08/04/20 EMETERIO OSEGUERA During your visit today, we recorded the following information about you: Allergies As of Date: 08/04/2020 Noted Allergy Reaction ALEVE (NAPROXEN SODIUM) 07/02/2013 16 - Unknown SULFA (SULFONAMIDE ANTIBIOTICS) 07/02/2013 10 - Anaphylaxis Date Reviewed: 03/23/2020 Reviewed by: Ashley Stephens Ma - Fully Assessed Order(s):SARS-COVID VACCINE 1ST DOSE APPT [[id number]] Order #: [id number] FUTURE Prescriptions as of 08/04/2020 Sig: ASPIRIN [...] infecti*03/23/2020 Encounter Status:Closed by ANCELMO NASCIMENTO on 08/09/20[facility] Evaluation noteNo assessment information availableLutheran Hospital Work Phone: Hospital course Narrative No data available for this section [facility] No data available for this section [facility] Summary Purpose Family History No Family [...] and content) DATE CREATED AUTHOR 11/30/2017 [facility] DATE CREATED AUTHOR AUTHOR'S ORGANIZ ATION 06/19/2021 [facility] DATE CREATED AUTHOR AUTHOR'S ORGANIZ ATION 10/13/2022 [facility] DATE CREATED AUTHOR AUTHOR'S ORGANIZ ATION 05/23/2023 [facility] DATE CREATED AUTHOR AUTHOR'S ORGANIZ ATION 07/07/2023 [facility] DATE CREATED AUTHOR AUTHOR'S ORGANIZ ATION 07/19/2023 [facility] Care Teams (unrecognized sec tion and content) [...] BE BASED ON THE PRIMARY CLINICAL RECORDS. [facility] [employer] [facility]. provides no warranty or guarantee of the accuracy or completeness of information in this document.
[2023-08-10 04:47] LABS: Hematocrit 41.9 % (36.0-48.0); Hemoglobin 13.5 g/dL (12.0-16.0); Mean Corpuscular HGB Conc 32.2 g/dL (29.9-35.2); Mean Corpuscular Hemoglobin 31.2 pg (26.7-34.0); Mean Corpuscular Volume 96.8 fL (81.0-99.0); Mean Platelet Volume 10.9 fL (9.5-13.5); Platelet Count 261 10^3/uL (150-450); Red Blood Count 4.33 10^6/uL (4.20-5.40); Red Cell Distribution Width 13.9 % (11.0-15.0); White Blood Count 9.4 10^3/uL (4.0-11.0)
--- NOTE | 2023-08-10 05:00 | PC.NURSE ---
Has large umbilical hernia.
--- NOTE | 2023-08-10 05:02 | ED.NAVMDI1 ---
HPI - Nausea/Vomiting/Diarrhea General Chief complaint: Nausea/Vomiting/Diarrhea Stated complaint: DIARRHEA Time Seen by Provider: 08/10/23 04:36 Source: patient and family Mode of arrival: ambulance Limitations: no limitations History of Present Illness HPI Narrative: 78-year-old female with a history of Parkinson's disease is brought to the emergency department by EMS from home accompanied by her daughter. The patient has been having diarrhea for one week. She states that she was trying to get to the bathroom tonight from her chair when she suddenly felt very weak like she might pass out. She called her daughter who called EMS. The patient did not pass out or fall. She states that one week ago she just suddenly developed diarrhea. She did not have any nausea or vomiting prior to the development or associated with the diarrhea. She denies any abdominal pain. She states she is having episodes of diarrhea approximately every 30 minutes. She states that her diarrhea at this point is just like water. She has no chest pain or shortness of breath. She was recently started on gabapentin and Flexeril from a pain management physician. She started this on July 30. The diarrhea started shortly thereafter. She did reach out to Dr. Leary earlier this week and was started on Levsin. That did not stop her diarrhea but she took some Levsin and Imodium yesterday. The diarrhea briefly stop but recurred again this morning. She has not recently been on any antibiotics. She has been urinating despite the diarrhea. elicited complaint: Reports diarrhea Related Data Home Medications Medication Instructions Recorded Confirmed alprazolam 1 mg tablet 1.5 mg PO BEDTIME 02/08/23 08/10/23 amlodipine 5 mg tablet 5 mg PO DAILY 02/08/23 08/10/23 carbidopa 25 mg-levodopa 100 mg 1 tab PO QID 02/08/23 02/09/23 tablet lisinopril 20 1 tab PO DAILY 02/08/23 08/10/23 mg-hydrochlorothiazide 25 mg tablet potassium chloride 20 mEq 20 meq PO BID 02/08/23 08/10/23 tablet,extended release(part/cryst) (Klor-Con M) pravastatin 20 mg tablet 20 mg PO DAILY 02/08/23 08/10/23 ascorbic acid (vitamin C) 1,000 mg 1 g PO DAILY 07/30/23 08/10/23 capsule cholecalciferol (vitamin D3) 125 125 mcg PO DAILY 07/30/23 08/10/23 mcg (5,000 unit) capsule cyclobenzaprine 10 mg tablet 10 mg PO BID 07/30/23 08/10/23 gabapentin 300 mg capsule 300 mg PO TID 07/30/23 08/10/23 potassium chloride 20 mEq 20 meq PO BID 07/30/23 08/10/23 tablet,extended release(part/cryst) (Klor-Con M) ropinirole 0.25 mg tablet 0.5 mg PO TID 07/30/23 08/10/23 ropinirole 0.5 mg tablet 0.5 mg PO TID 07/30/23 07/30/23 zinc gluconate 50 mg tablet 50 mg PO DAILY 07/30/23 08/10/23 aspirin 81 mg chewable tablet 81 mg PO DAILY 08/10/23 08/10/23 lutein 25 mg-zeaxanthin 5 mg 1 cap PO DAILY 08/10/23 08/10/23 capsule rasagiline 1 mg tablet 1 mg PO DAILY 08/10/23 08/10/23 Allergies Allergy/AdvReac Type Severity Reaction Status Date / Time Sulfa (Sulfonamide Allergy Unknown Verified 08/10/23 04:41 Antibiotics) Review of Systems ROS Status of ROS 10 or more systems reviewed and unremarkable except as noted in history and below [facility] Medical History (Updated 08/10/23 @ 06:48 by Mila Kaye MD) Hiatal hernia ?K44.9 - Diaphragmatic hernia without obstruction or gangrene (ICD-10) COPD (chronic obstructive pulmonary disease) ?J44.9 - Chronic obstructive pulmonary disease, unspecified (ICD-10) Parkinsons ?G20 - Parkinson's disease (ICD-10) Hypertension ?I10 - Essential (primary) hypertension (ICD-10) Surgical History History of appendectomy ?Z90.49 - Acquired absence of other specified parts of digestive tract (ICD-10) H/O: hysterectomy ?Z90.710 - Acquired absence of both cervix and uterus (ICD-10) H/O splenectomy ?Z90.81 - Acquired absence of spleen (ICD-10) Family History Brother Family history of stroke Family history of hypertension Mother Family history of stroke Family history of hypertension Father Family history of cancer Social History Within the past year, how often did you have a drink containing alcohol: never Within the past year, how many standard drinks containing alcohol did you have on a typical day: 1 or 2 Within the past year, how often did you have six or more drinks on one occasion: never Total score: 0 Score interpretation: A score less than 3 is consistent with normal alcohol consumption. Smoking status: Former smoker Non-prescribed substance use: denies use Previous occupational history: retired Highest level of school completed/degree received: high school graduate Are you now , , , , never or living with a partner: In a typical week, how many times do you talk on the telephone with family, friends, or neighbors: 3 or more times per week How often do you get together with friends or relatives: 3 or more times per week How often do you attend yarsanism or lutheran services: 4 or more times per year Do you belong to any clubs or organizations such as yarsanism groups unions, fraDapper or athletic groups, or school groups: no Total score: 2 Score interpretation: A score of greater than or equal to 2 indicates the lowest level of social isolation. Little interest or pleasure in doing things: not at all Feeling down, depressed, or hopeless: not at all Feel stressed/tense/nervous/anxious/difficulty sleeping: not at all Gender Identity: female Exam Narrative Exam Narrative: Nurses note and vital signs reviewed; She is afebrile with an elevated pulse, blood pressure is normal, she has mild hypoxic with pulse ox of 93 percent on room air General: Alert, generally weak appearing thin female with a resting tremor, no respiratory distress Skin: Warm, dry, no pallor noted. There is no rash noted. Head: Normocephalic, atraumatic Eye: Normal conjunctiva, no drainage, EOMI. PERRL Ears, Nose, Mouth, and Throat: oral mucosa is dry, No swelling of the tongue, uvula or pharyngeal soft tissues Cardiovascular: Regular Rate and Rhythm S1S2, no murmurs, rubs or gallops Respiratory: Patient is in no distress, no accessory muscle use, lungs are clear to auscultation, no wheezing, rales or rhonchi Back: non-tender, no CVA tenderness bilaterally to percussion. GI: Normal bowel sounds, Soft, easily reducible ventral hernia Musculoskeletal: The patient has no evidence of calf tenderness, no pitting edema, symmetrical pulses noted bilaterally Neurological: A&O x4, normal speech, resting tremor Psychiatric: Cooperative Constitutional Vital Signs, click to edit/add: Last Vital Signs Temp 97.4 F L 08/10/23 04:35 Pulse 87 08/10/23 06:29 Resp 12 08/10/23 06:29 BP 109/55 08/10/23 06:29 Pulse Ox 91 L 08/10/23 06:29 O2 Del Method Room Air 08/10/23 06:29 Course Vital Signs Vital signs: Vital Signs Temperature 97.4 F L 08/10/23 04:35 Pulse Rate 98 H 08/10/23 04:35 Respiratory Rate 14 08/10/23 04:35 Blood Pressure 124/76 08/10/23 04:35 Pulse Oximetry 93 L 08/10/23 04:35 Oxygen Delivery Method Room Air 08/10/23 04:35 Temperature 97.4 F L 08/10/23 04:35 Pulse Rate 87 08/10/23 06:29 Respiratory Rate 12 08/10/23 06:29 Blood Pressure 109/55 08/10/23 06:29 Pulse Oximetry 91 L 08/10/23 06:29 Oxygen Delivery Method Room Air 08/10/23 06:29 MDM - Nausea/Vomiting/Diarrhea MDM Narrative Medical decision making narrative: This 78-year-old female presents for evaluation of generalized weakness and near syncope this morning while trying to get to the bathroom. She has had diarrhea for one week. She has a history of Parkinson's disease. Tonight she was sleeping in her chair and needed to go to the bathroom because she needed to have an episode of diarrhea when she became weak and felt like she was going to pass out. She called her daughter who called EMS and EMS brought her to the emergency department. She states that she has had diarrhea without any abdominal pain for the past week. She states she is having watery stool at this time without any actual stool in her diarrhea. She has no specific abdominal pain. She denies any chest pain or shortness of breath. She was recently started on gabapentin and Flexeril by pain management. She has dry mucous membranes. Her abdomen is soft with a soft, nontender ventral hernia. Lungs are clear. She denies any nausea or vomiting. She did not have any viral symptoms that proceeded her development of the diarrhea. EKG done upon arrival is sinus rhythm at 90bpm with no acute changes. An iV was placed and routine labs were ordered including a C diff assay. She has a normal WBC count of 9.4 and normal hemoglobin of 13.5. LFTs, magnesium, lipase and lactic acid are normal. Her BUN/Creatinine are elevated compared to her baseline at 30/1.34 compared to 19/0.87 last February. Due to her weakness and near syncope, she will be admitted for further hydration and evaluation of the acute diarrhea. Case was discussed with Dr Leary and she is accepted for admission to med/surg Lab Data Labs: Lab Results 08/10/23 Range/Units 04:42 WBC 9.4 (4.0-11.0) 10^3/uL RBC 4.33 (4.20-5.40) 10^6/uL Hgb 13.5 (12.0-16.0) g/dL Hct 41.9 (36.0-48.0) % MCV 96.8 (81.0-99.0) fL MCH 31.2 (26.7-34.0) pg MCHC 32.2 (29.9-35.2) g/dL RDW 13.9 (11.0-15.0) % Plt Count 261 (150-450) 10^3/uL MPV 10.9 (9.5-13.5) fL Seg Neuts % (Manual) 63.0 Lymphocytes % (Manual) 10.0 L (20.5-60.0) % Atypical Lymphs % (Man) 12.0 % Monocytes % (Manual) 9.0 (1.7-12.0) % Eosinophils % (Manual) 6.0 (0.9-7.0) % Basophils % (Manual) 0.0 L (0.2-2.0) % Neutrophils # (Manual) 5.92 (1.4-6.5) 10^3/uL Lymphocytes # (Manual) 0.94 L (1.20-3.80) 10^3/uL Abs Atypical Lymphs Man 1.12 Monocytes # (Manual) 0.84 H (0.30-0.80) 10^3/uL Eosinophils # (Manual) 0.56 (0.00-0.70) 10^3/uL Basophils # (Manual) 0.00 (0.00-0.10) 10^3/uL Sodium 138 (136-145) mmol/L Potassium 4.1 (3.5-5.1) mmol/L Chloride 104 (98-107) mmol/L Carbon Dioxide 25.9 (21.0-32.0) mmol/L Anion Gap 12.2 BUN 30.0 H (7.0-18.0) mg/dL Creatinine 1.34 H (0.55-1.02) mg/dL Est GFR ( Amer) 46 L (>=60) Est GFR (Non-Af Amer) 38 L (>=60) BUN/Creatinine Ratio 22.4 Glucose 111 H (74-106) mg/dL Lactate 1.6 (0.4-2.0) mmol/L Calcium 11.3 H (8.5-10.1) mg/dL Magnesium 1.8 (1.8-2.4) mg/dL Total Bilirubin 0.4 (0.2-1.0) mg/dL AST 20 (15-37) U/L ALT 18 (14-59) U/L Alkaline Phosphatase 84 (46-116) U/L Total Protein 6.8 (6.4-8.2) g/dL Albumin 3.8 (3.4-5.0) g/dL Globulin 3.0 g/dL Albumin/Globulin Ratio 1.3 Lipase 36.0 (16.0-77.0) U/L ECG Data Attestation: I personally reviewed and interpreted this ECG as follows: (Sinus rhythm at 91 beats for minute, normal axis, interpretation somewhat limited by patient's tremor, no acute ST segment elevation or T-wave inversion) Discharge Plan Discharge Chief Complaint: Nausea/Vomiting/Diarrhea Clinical Impression: Acute kidney injury, Acute diarrhea Patient Disposition: Admitted as Observation Time of Disposition Decision: 06:48 Condition: Fair Prescriptions / Home Meds: No Action alprazolam 1 mg tablet 1.5 mg PO BEDTIME Rx Instructions: last filled 01/11/23 #45/30 days amlodipine 5 mg tablet 5 mg PO DAILY carbidopa-levodopa 25-100 mg tablet 1 tab PO QID Rx Instructions: 1 tab at 7am, 1 tab at 11am and 1 tab at 3pm per SIG on fill from 11/24/22 for 90 days lisinopril-hydrochlorothiazide 20-25 mg tablet 1 tab PO DAILY potassium chloride [Klor-Con M20] 20 mEq tablet,ER particles/crystals 20 meq PO BID pravastatin 20 mg tablet 20 mg PO DAILY ropinirole 0.25 mg tablet 0.5 mg PO TID potassium chloride [Klor-Con M20] 20 mEq tablet,ER particles/crystals 20 meq PO BID ropinirole 0.5 mg tablet 0.5 mg PO TID ascorbic acid (vitamin C) 1,000 mg capsule 1 g PO DAILY cholecalciferol (vitamin D3) 125 mcg (5,000 unit) capsule 125 mcg PO DAILY zinc gluconate 50 mg tablet 50 mg PO DAILY cyclobenzaprine 10 mg tablet 10 mg PO BID gabapentin 300 mg capsule 300 mg PO TID aspirin 81 mg tablet,chewable 81 mg PO DAILY lutein-zeaxanthin 25-5 mg capsule 1 cap PO DAILY rasagiline 1 mg tablet 1 mg PO DAILY Referrals: Kavon Leary MD [Primary Care Provider] - 1 week
[2023-08-10 05:03] LABS: Alanine Aminotransferase 18 U/L (14-59); Albumin Globulin Ratio 1.3; Albumin Level 3.8 g/dL (3.4-5.0); Alkaline Phosphatase 84 U/L (46-116); Anion Gap 12.2; Aspartate Amino Transferase 20 U/L (15-37); BUN Creatinine Ratio 22.4; Bilirubin Total 0.4 mg/dL (0.2-1.0); Calcium 11.3 mg/dL (8.5-10.1); Carbon Dioxide 25.9 mmol/L (21.0-32.0); Chloride 104 mmol/L (98-107); Estimated GFR (African America 46 (>=60); Estimated GFR (Non-African Ame 38 (>=60); Glucose 111 mg/dL (74-106); Magnesium 1.8 mg/dL (1.8-2.4); Potassium 4.1 mmol/L (3.5-5.1); Sodium 138 mmol/L (136-145); Total Protein 6.8 g/dL (6.4-8.2)
[2023-08-10 05:06] LABS: Lactate/Lactic Acid 1.6 mmol/L (0.4-2.0)
[2023-08-10] MEDS: 0.9 % SODIUM CHLORIDE 1,000 ML 1000 ML IV (05:07)
[2023-08-10 05:19] LABS: Atypical Lymphocytes Abs Man 1.12; Eosinophils Absolute Manual 0.56 10^3/uL (0.00-0.70); Lymphocytes Absolute Manual 0.94 10^3/uL (1.20-3.80); Monocytes Absolute Manual 0.84 10^3/uL (0.30-0.80); Segmented Neut Absolute Manual 5.92 10^3/uL (1.4-6.5)
--- OUTSIDE RECORDS SUMMARY | 2023-08-10 08:02 | XMS_ITS | CCD ---
Author Name Unknown Address [address] [place] [address] Organization [facility] Care Team Providers Care Sign Language Interpreter Name Role Phone SELF, REFERRED Unavailable Unavailable SELF, REFERRED Unavailable Unavailable BRAMOS, ATHANASIOS Unavailable Unavailable SUPA MAY Unavailable Unavailable HI Unavailable Unavailable BRAMOS, ATHANASIOS Unavailable Unavailable HI Unavailable Unavailable SUPA MAY Unavailable Unavailable PHYSICIAN, [...] Unavailable MD Rodrick Sams Primary Care Provider [phone] DIXIE Reid Attending Provider Cathie Reid Attending Unavailable Cathie Reid Admitting Unavailable Rodrick Sams Primary Care Unavailable Rodrick Sams Primary Care Physician Elian Quigley Unavailable Unavailable COOPER ROWLEY Attending Unavailable STEPHENIE PRECIADO Attending Unavailable COOPER ROWLEY Attending Unavailable Mela Espinal Admitting Unavailable Haile CASTRO Attending Unavailable [place], Ramiro Consulting Unavailable [place], Ramiro Consulting Unavailable [place], Ramiro Consulting Unavailable [place], Ramiro Consulting Unavailable [place], Ramiro Consulting Unavailable [place], Ramiro Consulting Unavailable [place], Ramiro Consulting Unavailable [place], Ramiro Consulting Unavailable [place], Ramiro Consulting Unavailable Demarco Beaver. Attending Unavailable Allergies Allergy Classification Reported Allergen(s) Allergy Type Date of Onset Reaction(s) Facility (4 sources) Sulfonamides (Antibiotic); 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: [SULFA (SULFONAMIDE ANTIBIOTICS)] Drug allergy (disorder) 4 [facility] Repository (1 source) Cephalexin Drug Allergy [address] [facility] Repository (1 source) Unable to Assess Drug allergy (disorder) 3 [facility] Repository (2 sources) Sulfonamides (Antibiotic); 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: [sulfa drugs] Drug allergy Unknown (qualifier value) [facility] Medications Current Medications Medication Drug Class(es) [...] day(s), # 15 cap(s), Refills(s) 0, Pharmacy: [facility]/pharmacy #[id number], 167, cm, 06/23/23 1:52:00 EST, Height/Length Dosing, 56.3, kg, 06/23/23 1:52:00 EST, Weight Dosing Start Date: 06/23/23 Stop Date: 06/28/23 Status: Ordered ciprofloxacin 500 mg oral tablet (1 source) Quinolone Antimicrobial Start: 02-25-2020 Cipro 500 mg Tab See Instructions, Take 1 tab day prior to procedure and 1 tab day of procdure - afterwards, # 2 tab(s), Refills(s) 0, Pharmacy: [facility]/pharmacy #[id number], 167, cm, 02/10/20 14:06:00 EDT, Height/Length [...] 06-23-2023 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; 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: [HALF-WAY (CURRENT) USE OF ORAL HYPOGLYCEMIC DRUGS] Onset: [...] Episodic Other aftercare (2 sources) 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; 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: [HALF-WAY (CURRENT) USE OF ASPIRIN] Onset: 08-11-2017 Episodic Other aftercare (1 source) Other longterm (current) drug therapy; 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: [OTH HALF-WAY CURRENT DRUG THERAPY] Onset: 05-22-2022 Episodic Other [...] Locations R1: This test was performed at: [facility], [address] [place] [address], [address]- , [place], Normal [facility] Comment on above: Performed By: #### 2 848061, [id number] #### [facility] [address] [place] [address] BMPon 07-16-2023 Anion gap [Moles/Vol] 14 mmol/L Normal 6-16 [facility] Comment on above: Performed By: #### 2 126298, [id number] #### [facility] [address] [place] [address] BUN/Creat Ratio 22 No Units High 10-20 [facility] Comment on above: Performed By: #### 2 007294, [id number] #### [facility] [address] [place] [address] Calcium [Mass/Vol] 11.6 mg/dL High 8.9-11.1 [facility] Comment on above: Performed By: #### 2 737904, [id number] #### [facility] [address] [place] [address] Chloride [Moles/Vol] 105 mmol/L Normal 101-111 [facility] Comment on above: Performed By: #### 2 331134, [id number] #### [facility] [address] [place] [address] CO2 [Moles/Vol] 26 mmol/L Normal 21-31 [facility] Comment on above: Performed By: #### 2 856635, [id number] #### [facility] [address] [place] [address] Creatinine [Mass/Vol] 0.9 mg/dL Normal 0.5-1.3 [facility] Comment on above: Performed By: #### 2 186970, [id number] #### [facility] [address] [place] [address] Glucose [Mass/Vol] 87 mg/dL Normal 55-199 [facility] Comment on above: Performed By: #### 2 183971, [id number] #### [facility] [address] [place] [address] Potassium [Moles/Vol] 4.0 mmol/L Normal 3.5-5.3 [facility] Comment on above: Performed By: #### 2 645610, [id number] #### [facility] [address] [place] [address] Sodium [Moles/Vol] 141 mmol/L Normal 135-145 [facility] Comment on above: Performed By: #### 2 394619, [id number] #### [facility] [address] [place] [address] Urea nitrogen [Mass/Vol] 20 mg/dL Normal 5-21 [facility] Comment on above: Performed By: #### 2 445104, [id number] #### [facility] [address] [place] [address] CBC w/ Auto Diffon 4 Basophil Absolute 0.1 E9/L Normal 0.0-0.2 [facility] Comment on above: Performed By: #### 2 931710, [id number] #### [facility] [address] [place] [address] Basophils/100 WBC (Bld) 1.1 % Normal 0.0-2.0 [facility] Comment on above: Performed By: #### 2 052612, [id number] #### [facility] [address] [place] [address] Eos Absolute 0.2 E9/L Normal 0.0-0.5 [facility] Comment on above: Performed By: #### 2 927751, [id number] #### [facility] [address] [place] [address] Eosinophils/100 WBC (Bld) 1.7 % Normal 0.0-8.0 [facility] Comment on above: Performed By: #### 2 814480, 44644857 #### [facility] [address] [place] [address] Erythrocyte distribution width (RBC) [Ratio] 13.5 % Normal 10.9-14.2 [facility] Comment on above: Performed By: #### 2 070897, 92783923 #### [facility] [address] [place] [address] Hematocrit (Bld) [Volume fraction] 43.0 % Normal 34.0-46.0 [facility] Comment on above: Performed By: #### 2 375450, 73452323 #### [facility] [address] [place] [address] Hemoglobin (Bld) [Mass/Vol] 14.3 g/dL Normal 12.0-16.0 [facility] Comment on above: Performed By: #### 2 358549, [id number] #### [facility] [address] [place] [address] Lymph Absolute 3.4 E9/L Normal 1.0-4.0 [facility] Comment on above: Performed By: #### 2 547653, [id number] #### [facility] [address] [place] [address] Lymphocytes/100 WBC (Bld) 38.0 % Normal 14.0-50.0 [facility] Comment on above: Performed By: #### 2 907091, 44799086 #### [facility] [address] [place] [address] MCH (RBC) [Entitic mass] 30.9 pg Normal 27.0-34.0 [facility] Comment on above: Performed By: #### 2 922138, 22118971 #### [facility] [address] [place] [address] MCHC (RBC) [Mass/Vol] 33.0 g/dL Normal 31.4-36.0 [facility] Comment on above: Performed By: #### 2 134951, [id number] #### [facility] [address] [place] [address] MCV (RBC) [Entitic vol] 93.5 fL Normal 80.0-100.0 [facility] Comment on above: Performed By: #### 2 232176, 46054198 #### [facility] [address] [place] [address] Garland Absolute 1.2 E9/L High 0.2-1.0 [facility] Comment on above: Performed By: #### 2 654962, [id number] #### [facility] [address] [place] [address] Monocytes/100 WBC (Bld) 12.9 % Normal 4.0-14.0 [facility] Comment on above: Performed By: #### 2 239783, 31109280 #### [facility] [address] [place] [address] Neutro Absolute 4.2 E9/L Normal 2.0-7.5 [facility] Comment on above: Performed By: #### 2 745760, 09150754 #### [facility] [address] [place] [address] Neutro Auto 46.3 % Normal 36.0-75.0 [facility] Comment on above: Performed By: #### 2 143755, 31745201 #### [facility] [address] [place] [address] Platelet 325.0 E9/L Normal 150.0-500.0 [facility] Comment on above: Performed By: #### 2 791238, 93583572 #### [facility] [address] [place] [address] Platelet mean volume (Bld) [Entitic vol] 9.3 fL Normal 6.4-10.8 [facility] Comment on above: Performed By: #### 2 663174, 71732004 #### [facility] [address] [place] [address] RBC 4.6 E12/L Normal 4.3-5.9 [facility] Comment on above: Performed By: #### 2 055111, 58664260 #### [facility] [address] [place] [address] WBC 9.0 E9/L Normal 4.0-11.0 [facility] Comment on above: Performed By: #### 2 371639, [id number] #### [facility] [address] [place] [address] Consent for Treatmenton Consent for Treatment [id number] Normal [facility] Discharge Instructionson Discharge Instructions [id number] Normal [facility] ED Clinical Summaryon 2023 ED Clinical Summary (Inserted Image. Jenni ble to display) [address] [address] ED Clinical Summary Person Information Name: JUDITH KHAN [facility] Age: 78 Years : 1945 Sex: Female Language: Bahraini PCP: Rodrick Sams MD Marital Status: Visit [...] 07/16/2023 15:44:31 07/16/2023 15:44:31 07/16/2023 15:44:31 ADDRESS: [address] [place] [id number] PHYS DOC NOTES: MEDICAL INFORMATION: Prescriptions Given: [...] up: With: Address: When: Rodrick Sams [address] [place] [address] Business (1) In 3 days 07/19/2023 DIAGNOSIS: Weakness Normal [facility] ED Note-Physicianon 07-16-19 ED Note-Physician Basic Information [...] Sams In 3 days 07/19/2023 EST [address] [place] [address] [place] [address]- Business (1) Additional Instructions: Patient Education Weakness [...] made to ensure accuracy, however, inadvertently computerized floor clerk mistakes may be present. Appropriate healthcare PPE [...] 11:50:00) MC (more content not included)... Normal [facility] Comment on above: Result Comment: Elec [...] Consider working with a physical therapist or operations trainer who can develop an exercise plan to help you gain muscle strength. General instructions ? Take pixm-tzf-uoufqoo and prescription medicines only as told by [...] Reviewed: 04/30/2022 Elsevier Patient Education ? 2022 [employer] Normal [facility] ED Patient Summaryon 024 ED Patient Summary (Inserted Image. Jenni ble to display) [place] [id number] Patient Discharge Instructions Person Information Name: JUDITH KHAN Age: 78 Years Arrival Date: 07/16/2023 11:33:16 Discharge Diagnosis: Weakness Primary Care Physician: Rodrick Sams MD Provider Information Primary Provider: Demarco Beaver DO [employer] Attorney:Leighton Fernandes PA-C The exam and treatment you received in the Emergency Department were for an urgent problem and are not intended as complete care. It is important that you follow up with a doctor, nurse practitioner, or physician?s graphic design assistant for ongoing care. If your symptoms [...] Follow-up Instructions: With: Address: When: Rodrick Sams [address] [place] [address], [address] [place] [id number] Business (1) In 3 days 07/19/2023 In the event that this physician does not participate in your insurance network, please consult with your insurance company to find a nearby participating provider. Patient Education Materials: Weakness A MESSAGE TO ALL PATIENTS REGARDING OPIOIDS PRESCRIPTION OPIOIDS: WHAT YOU NEED TO KNOW Prescription opioids can be used to help relieve eqvcnsww-dp-rawgch pain and are often prescribed following a [...] be struggling with addiction, tell your health plant care worker and ask for guidance or call SAM[employer]?S National Helpline at 2-580-989-HELP. v Source: [place] Department of Health a (more content not included)... Normal [facility] Troponin 0 Hr.on 07-16-2023 Troponin 21.20 pg/mL Normal 10.10-27.10 [facility] Comment on above: Result Comment: The 95% CI (Confidence Interval) PPV (Positive Predictive Value) for myocardial infarction in females is 38 pg/mL, in males 51 pg/mL. The results should be used in conjunction with clinical conditions of myocardial infarction. (Access High Sensitivity Troponin I Instructions For Use, Jacques Ceci, January 2018) Performed By: #### 2 513687, [id number] #### [facility] [address] [place] [address] Troponin 3 Hr.on 07-16-2023 Troponin 19.60 pg/mL Normal 10.10-27.10 [facility] Comment on above: Result Comment: The 95% CI (Confidence Interval) PPV (Positive Predictive Value) for myocardial infarction in females is 38 pg/mL, in males 51 pg/mL. The results should be used in conjunction with clinical conditions of myocardial infarction. (Access High Sensitivity Troponin I Instructions For Use, [employer], January 2018) Performed By: #### 1 [id number] #### [facility] [address] [place] [address] UA With Cult Reflexon 2023 Bacteria LM Ql (Urine sed) TRACE Normal Trace [facility] Comment on above: Performed By: #### 2 118249, [id number] #### [facility] [address] [place] [address] Bilirubin Ql (U) Negative Normal Negative [facility] Comment on above: Performed By: #### 2 130620, 67513202 #### [facility] [address] [place] [address] Clarity (U) CLEAR Normal Clear [facility] Comment on above: Performed By: #### 2 041030, 15881088 #### [facility] [address] [place] [address] Color (U) YELLOW Normal Yellow [facility] Comment on above: Performed By: #### 2 237602, 14595723 #### [facility] [address] [place] [address] Crystals LM Ql (Urine sed) Present Normal [facility] Comment on above: Performed By: #### 2 458408, 57686373 #### [facility] [address] [place] [address] Epithelial cells.squamous LM.HPF (Urine sed) [#/Area] 0-2 Normal 0-2 [facility] Comment on above: Performed By: #### 2 673085, [id number] #### [facility] [address] [place] [address] Glucose Test strip (U) [Mass/Vol] Negative Normal Negative [facility] Comment on above: Performed By: #### 2 939915, 45049119 #### [facility] [address] [place] [address] Hemoglobin Ql (U) Negative Normal Negative [facility] Comment on above: Performed By: #### 2 004878, 10495213 #### [facility] [address] [place] [address] Ketones (U) [Mass/Vol] Negative Normal Negative [facility] Comment on above: Performed By: #### 2 517181, 58312660 #### [facility] [address] [place] [address] Mcroberts.plasma/Lithi um.RBC (Bld) [Mass ratio] 0-3 Normal 0-3 [facility] Comment on above: Performed By: #### 2 977192, 19003421 #### [facility] [address] [place] [address] Nitrite Ql (U) Negative Normal Negative [facility] Comment on above: Performed By: #### 2 328179, [id number] #### [facility] [address] [place] [address] pH (U) 7.0 [pH] Invalid Interpretation Code 5.0-9.0 [facility] Comment on above: Performed By: #### 2 371578, 08865485 #### [facility] [address] [place] [address] Protein (U) [Mass/Vol] Negative Normal Negative [facility] Comment on above: Performed By: #### 2 725471, 32568561 #### [facility] [address] [place] [address] Specific gravity (U) [Rel density] 1.015 Invalid Interpretation Code 1.005-1.030 [facility] Comment on above: Performed By: #### 2 089709, 69485682 #### [facility] [address] [place] [address] Type of Urine collection method Clean Catch Normal [facility] Comment on above: Performed By: #### 2 353453, [id number] #### [facility] [address] [place] [address] Urobilinogen Qn (U) 0.2 {Phoebe'U}/dL Normal 0.0-1.0 [facility] Comment on above: Performed By: #### 2 343758, 54593534 #### [facility] [address] [place] [address] WBC Auto Ql (U) 1+ Abnormal Negative [facility] Comment on above: Performed By: #### 2 978798, 03243992 #### [facility] [address] [place] [address] WBC LM.HPF (Urine sed) [#/Area] 0-5 Normal 0-5 [facility] Comment on above: Performed By: #### 2 312712, 48217262 #### [facility] [address] [place] [address] eGFRon 07-16-2023 eGFR 66 mL/min/1.73 m2 Normal >=59 [facility] Comment on above: Order Comment: Order added by Discern Expert. Performed By: #### 2 876763, [id number] #### [facility] [address] [place] [id number] Office Visiton 07-06-2023 Follow-up visit [id number] Donato Khan 1945 F Date Provider Department Center 07/06/2023 [facility] Family History Problem Relation Age of Onset Stroke Mother Stroke Brother Other Mother's Sister Coronary artery disease Mother's Sister Stroke Maternal Grandmother Family Status - Relation Status Age at Mother Brother Mother's Sister Maternal Grandmother Level of Service:31885 HI OFFICE/OUTPATIENT ESTABLISHED MOD MDM 30 MIN Normal [facility] C Urineon 06-25-2023 Bacteria identified Cx [...] Locations R1: This test was performed at: [facility], [address] [place] [address], [address]- , , Normal [facility] Comment on above: Performed By: #### 1 8791276, 7851612 #### [facility] [address] [place] [address] UA With Cult Reflexon 2023 UA Spec Desc Catheter Normal [facility] Comment on above: Result Comment: Mini cath specimen Performed By: #### 1 2514139, [id number] #### [facility] [address] [place] [address] Discharge Instructionson Discharge Instructions [id number] Normal [facility] Message from Medicareon 06-11 Message from Medicare [id number] Normal [facility] Auto Diffon 06-23-2023 Basophils/100 WBC (Bld) 0.4 % Normal 0.0-2.0 [facility] Comment on above: Order Comment: Order Added by Discern Expert. Performed By: #### 2 642750, [id number] #### [facility] [address] [place] [address] Basophils/Leukocytes Auto (Bld) [Pure # fraction] 0.1 E9/L Normal 0.0-0.2 [facility] Comment on above: Order Comment: Order Added by Discern Expert. Performed By: #### 2 247653, [id number] #### [facility] [address] [place] [address] Eosinophils/100 WBC (Bld) 0.8 % Normal 0.0-8.0 [facility] Comment on above: Order Comment: Order Added by Discern Expert. Performed By: #### 2 843420, 93534345 #### [facility] [address] [place] [address] Eosinophils/Leukocyt es Auto (Bld) [Pure # fraction] 0.1 E9/L Normal 0.0-0.5 [facility] Comment on above: Order Comment: Order Added by Discern Expert. Performed By: #### 2 871308, [id number] #### [facility] [address] [place] [address] Lymphocytes/100 WBC (Bld) 15.1 % Normal 14.0-50.0 [facility] Comment on above: Order Comment: Order Added by Discern Expert. Performed By: #### 2 339137, [id number] #### [facility] [address] [place] [address] Lymphocytes/Leukocyt es Auto (Bld) [Pure # fraction] 2.2 E9/L Normal 1.0-4.0 [facility] Comment on above: Order Comment: Order Added by Discern Expert. Performed By: #### 2 998762, [id number] #### [facility] [address] [place] [address] Monocytes/100 WBC (Bld) 11.3 % Normal 4.0-14.0 [facility] Comment on above: Order Comment: Order Added by Discern Expert. Performed By: #### 2 434364, [id number] #### [facility] [address] [place] [address] Monocytes/Leukocytes Auto (Bld) [Pure # fraction] 1.6 E9/L High 0.2-1.0 [facility] Comment on above: Order Comment: Order Added by Discern Expert. Performed By: #### 2 637348, [id number] #### [facility] [address] [place] [address] Neutrophils/100 WBC (Bld) 72.4 % Normal 36.0-75.0 [facility] Comment on above: Order Comment: Order Added by Discern Expert. Performed By: #### 2 036422, 04198583 #### [facility] [address] [place] [address] Neutrophils/Leukocyt es Auto (Bld) [Pure # fraction] 10.5 E9/L High 2.0-7.5 [facility] Comment on above: Order Comment: Order Added by Discern Expert. Performed By: #### 2 974685, 10178285 #### [facility] [address] [place] [address] BMPon 06-23-2023 Anion gap [Moles/Vol] 13 mmol/L Normal 6-16 [facility] Comment on above: Performed By: #### 2 852976, [id number] #### [facility] [address] [place] [address] BUN/Creat Ratio 20 No Units Normal 10-20 [facility] Comment on above: Performed By: #### 2 214101, [id number] #### [facility] [address] [place] [address] Calcium [Mass/Vol] 10.7 mg/dL Normal 8.9-11.1 [facility] Comment on above: Performed By: #### 2 536289, 88566152 #### [facility] [address] [place] [address] Chloride [Moles/Vol] 103 mmol/L Normal 101-111 [facility] Comment on above: Performed By: #### 2 817102, 14631727 #### [facility] [address] [place] [address] CO2 [Moles/Vol] 25 mmol/L Normal 21-31 [facility] Comment on above: Performed By: #### 2 361956, 35136173 #### [facility] [address] [place] [address] Creatinine [Mass/Vol] 0.9 mg/dL Normal 0.5-1.3 [facility] Comment on above: Performed By: #### 2 914022, 78294480 #### [facility] [address] [place] [address] Glucose [Mass/Vol] 98 mg/dL Normal 55-199 [facility] Comment on above: Performed By: #### 2 092057, 11616087 #### [facility] [address] [place] [address] Potassium [Moles/Vol] 3.5 mmol/L Normal 3.5-5.3 [facility] Comment on above: Performed By: #### 2 893816, 84445401 #### [facility] [address] [place] [address] Sodium [Moles/Vol] 137 mmol/L Normal 135-145 [facility] Comment on above: Performed By: #### 2 169667, 03692952 #### [facility] [address] [place] [address] Urea nitrogen [Mass/Vol] 18 mg/dL Normal 5-21 [facility] Comment on above: Performed By: #### 2 537648, 12489535 #### [facility] [address] [place] [address] CBC w/ Auto Diffon Erythrocyte distribution width (RBC) [Ratio] 13.6 % Normal 10.9-14.2 [facility] Comment on above: Performed By: #### 2 840992, [id number] #### [facility] [address] [place] [address] Hematocrit (Bld) [Volume fraction] 40.9 % Normal 34.0-46.0 [facility] Comment on above: Performed By: #### 2 222951, [id number] #### [facility] [address] [place] [address] Hemoglobin (Bld) [Mass/Vol] 13.7 g/dL Normal 12.0-16.0 [facility] Comment on above: Performed By: #### 2 882659, 99912695 #### [facility] [address] [place] [address] MCH (RBC) [Entitic mass] 30.8 pg Normal 27.0-34.0 [facility] Comment on above: Performed By: #### 2 [id number], [id number] #### [facility] [address] [place] [address] MCHC (RBC) [Mass/Vol] 33.4 g/dL Normal 31.4-36.0 [facility] Comment on above: Performed By: #### 2 [id number], [id number] #### [facility] [address] [place] [address] MCV (RBC) [Entitic vol] 92.2 fL Normal 80.0-100.0 [facility] Comment on above: Performed By: #### 2 [id number], [id number] #### [facility] [address] [place] [address] Platelet mean volume (Bld) [Entitic vol] 9.9 fL Normal 6.4-10.8 [facility] Comment on above: Performed By: #### 2 160139, [id number] #### [facility] [address] [place] [address] Platelets (Bld) [#/Vol] 301.0 E9/L Normal 150.0-500.0 [facility] Comment on above: Performed By: #### 2 318611, [id number] #### [facility] [address] [place] [address] RBC (Bld) [#/Vol] 4.4 E12/L Normal 4.3-5.9 [facility] Comment on above: Performed By: #### 2 080961, [id number] #### [facility] [address] [place] [address] WBC corrected for nucl RBC Auto (Bld) [#/Vol] 14.5 E9/L High 4.0-11.0 [facility] Comment on above: Performed By: #### 2 100571, [id number] #### [facility] [address] [place] [address] CHEMISTRYOrdered By: SYSTEM SYSTEM on 06-23-2023 Troponin [...] conjunction with clinical conditions of myocardial infarction. (panpan High Sensitivity Troponin I Instructions For Use, BakedCode, January 2018) Troponin 183.20 pg/mL Invalid Interpretation [...] conjunction with clinical conditions of myocardial infarction. (panpan High Sensitivity Troponin I Instructions For Use, BakedCode, January 2018) Troponin 116.80 pg/mL Invalid Interpretation [...] conjunction with clinical conditions of myocardial infarction. (panpan High Sensitivity Troponin I Instructions For Use, BakedCode, January 2018) Lactic Acid Lvl 1.1 mmol/L [...] 96 mg/dL Normal 55 - 99 mg/dL [facility] POC Subsection Comment on above: Result Comment: Bonnie jamil RN/ POC Device SN [id number] 1 Invalid Interpretation Code [facility] POC Subsection POC User ID [id number] 1 Invalid Interpretation Code [facility] POC Subsection POC Username JOSH GERONIMO Invalid Interpretation Code [facility] POC Subsection COAGULATIONOrdered By: Hoang Chris on 06-23-2023 aPTT Coag (PPP) [Time] 30.4 s Normal 25.1 - 36.5 second(s) [facility] Auto Coag Comment on above: Interpretive Data: [...] the same coagulation reagent and instrumentation as [facility]. Currently there are no coagulation studies available worldwide for children to 14 days, and no normal ranges. Heparin therapeutic range (represented by Anti-Factor Xa activity of 0.2 - 0.4 U/mL) corresponds to PTT of 56.6 - 109.0 sec. INR Coag (PPP) [Relative time] 1.0 {INR} Invalid Interpretation Code [facility] Auto Coag Comment on above: Interpretive Data: I NR results are specifically intended to assess patients stabilized on long-term Anticoagulation therapy suggested INR s Less Intensive Anticoagulation 2.0 3.0 Conventional Range 3.0 4.5 PT Coag (PPP) [Time] 11.7 s Normal 9.4 - 1 2.5 second(s) [facility] Auto Coag Comment on above: Interpretive Data: [...] the same coagulation reagent and instrumentation as [facility]. Currently there are no coagulation studies available [...] Technologist: YOLY Technical Comments Contrast: None Normal [facility] Capillary Glucose POCon 06-11 Glucose [Mass/Vol] 96 mg/dL Normal 55-99 [facility] Comment on above: Result Comment: Bonnie jamil RN/ Performed By: #### 2 [id number] #### [facility] [address] [place] [address] Consent for Treatmenton 06-11 Consent for Treatment [id number]#[id number] Normal [facility] Discharge Note-Nursingon Discharge Note-Nursing JUDITH KHAN :1945 [...] Doctor Event Name Event Result Pharmacy Information [facility]- [facility] New Follow Up Appointments after Discharge Follow Up with Dani HERRERA, JOANNA Kauffman When: Within 1 to 2 weeks Where: [facility] [place] [address]- Medications What How Much When Instructions Next [...] days a (more content not included)... Normal [facility] ED Clinical Summaryon 2023 ED Clinical Summary (Inserted Image. Jenni ble to display) [address] [address] ED Clinical Summary Person Information Name: JUDITH KHAN Alecia/[facility] Age: 78 Years : 1945 Sex: Female Language: Bahraini PCP: Rodrick Sams MD Marital Status: Visit Id: Visit Reason: Potential stroke; POSS STROKE Speciality: Acuity: 2 Enc Type: Observation Med Service: Emergency Arrival: 06/23/2023 01:35:17 Discharge: LOS: 000 03:53 Checkin: 06/23/2023 01:35:17 Checkout: 06/23/2023 05:28:48 Dispo Type: Admitted as IP to this [facility] EVENTS: Event Name Event Status Request Date/Time [...] 04:30:21 Meds Admin Request 06/23/2023 04:30:49 ADDRESS: [address] [place] [id number] PHYS DOC NOTES: MEDICAL INFORMATION: Prescriptions Given: [...] 4:Elevated troponin; 5:Hypertension; 6:High cholesterol; 7:Parkinsons Normal [facility] ED Note-Physicianon 06-23-19 ED Note-Physician Basic Information [...] both correctly = 0 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 Normal [facility] Comment on above: Result Comment: Elec tronically Signed By: Augie Sidhu M.D.\.andreia\Date and Time Signed: 06/23/23 04:21 EST ED Patient Education Noteon 06-23-2023 ED Patient Education Note Normal [facility] ED Patient Summaryon 024 ED Patient Summary (Inserted Image. Jenni ble to display) [place] [id number] Patient Discharge Instructions Person Information Name: JUDITH KHAN Age: 78 Years Arrival Date: 06/23/2023 01:35:17 Discharge Diagnosis: 1:Right sided weakness; 2:Hypoxia; 3:Urinary tract infection; 4:Elevated troponin; 5:Hypertension; 6:High cholesterol; 7:Parkinsons Primary Care Physician: Rodrick Sams MD Provider Information Primary Provider: Augie Sidhu M.D. [employer] Attorney:None The exam and treatment you received in the Emergency Department were for an urgent problem and are not intended as complete care. It is important that you follow up with a doctor, nurse practitioner, or physician?s graphic design assistant for ongoing care. If your symptoms [...] opioids can be used to help relieve bhvyyypr-tj-webmgn pain and are often prescribed following a [...] be struggling with addiction, tell your health plant care worker and ask for guidance or call [facility] National Helpline at 5-906-053-BVEJ. v Source: US Department of Health and Human Services/Center for Disease (more content not included)... Normal [facility] HEMATOLOGYOrdered By: SYSTEM SYSTEM on 06-23-2023 Basophils/100 [...] 14.5 E9/L High 4.0 - 11.0 E9/L [facility] HemeAutoSS Hep Func Panelon 06-23-2023 Albumin [Mass/Vol] 4.1 g/dL Normal 3.3-5.0 [facility] Comment on above: Performed By: #### 2 909935, [id number] #### [facility] [address] [place] [address] Albumin/Globulin [Mass ratio] 1.7 {ratio} Normal 1.1-2.2 [facility] Comment on above: Performed By: #### 2 676620, [id number] #### [facility] [address] [place] [address] Alk Phos 80 Int._Unit/L Normal 21-98 [facility] Comment on above: Performed By: #### 2 077512, [id number] #### [facility] [address] [place] [address] ALT 10 Int._Unit/L Normal 6-46 [facility] Comment on above: Performed By: #### 2 020712, [id number] #### [facility] [address] [place] [address] AST 16 Int._Unit/L Normal 5-43 [facility] Comment on above: Performed By: #### 2 743671, [id number] #### [facility] [address] [place] [address] Bili Direct 0.1 mg/dL Normal 0.0-0.4 [facility] Comment on above: Performed By: #### 2 547835, [id number] #### [facility] [address] [place] [address] Bili Indirect 0.5 mg/dL Normal 0.1-0.9 [facility] Comment on above: Performed By: #### 2 679258, [id number] #### [facility] [address] [place] [address] Bili Total 0.6 mg/dL Normal 0.0-1.1 [facility] Comment on above: Performed By: #### 2 990006, [id number] #### [facility] [address] [place] [address] Globulin (S) [Mass/Vol] 2.4 g/dL Normal 1.4-4.0 [facility] Comment on above: Performed By: #### 2 347131, [id number] #### [facility] [address] [place] [address] Protein [Mass/Vol] 6.5 g/dL Normal 6.0-7.8 [facility] Comment on above: Performed By: #### 2 450607, [id number] #### [facility] [address] [place] [address] Interdisciplinary Note - Bobby n 06-23-2023 Interdisciplinary [...] Recommend Out-pt. OT eval. for Parkinson's. Normal [facility] Interdisciplinary Note - Spe ech Languageon 06-23-2023 [...] further ST needs at this time. Normal [facility] Lactic Acidon 06-23-2023 Lactic Acid Lvl 1.1 mmol/L Normal 0.5-2.2 [facility] Comment on above: Performed By: #### 2 019289, [id number] #### [facility] [address] [place] [address] MICRO OTHER TESTSOrdered By: Hoang Chris on 06-23-2023 Rapid COV Int NEG Ctl Pass (06/23/23 2:12 AM) Normal [facility] Man Sero Rapid COV Int POS Ctl Pass (06/23/23 2:12 AM) Normal [facility] Sero SARS-CoV+SARS-CoV-2 (COVID-19) Ag IA.rapid Ql (Resp) Not Detected 11 (06/23/23 2:12 AM) Normal Not Detected [facility] Sero Comment on above: Interpretive Data: Bob melendez [employer] Veritor System for Rapid Detection of SARS-CoV-2 [...] 06-23-2023 Magnesium [Mass/Vol] 1.8 mg/dL Normal 1.3-2.4 [facility] Comment on above: Performed By: #### 2 518302, [id number] #### [facility] [address] [place] [address] Message from Medicareon 06-11 Message from Medicare [id number]#1.00TIFF Normal [facility] Monitor Recordon 06-23-2023 Monitor Record [id number]#1.00TIFF Normal [facility] Monitor Record [id number]#1.00TIFF Normal [facility] Monitor Record [id number]#1.00TIFF Normal [facility] Monitor Record [id number]#1.00TIFF Normal [facility] PT & PTTon 06-23-2023 aPTT Coag (PPP) [Time] 30.4 second(s) Normal 25.1-36.5 [facility] Comment on above: Result Comment: Para meter [...] the same coagulation reagent and instrumentation as [facility]. Currently there are no coagulation studies available worldwide for children to 14 days, and no normal ranges. Heparin therapeutic range (represented by Anti-Factor Xa activity of 0.2 - 0.4 U/mL) corresponds to PTT of 56.6 - 109.0 sec. Performed By: #### 2 088372, [id number] #### [facility] [address] [place] [address] INR Coag (PPP) [Relative time] 1.0 {INR} Invalid Interpretation Code [facility] Comment on above: Result Comment: INR results are specifically intended to assess patients stabilized on long-term Anticoagulation therapy suggested INR?s ?Less Intensive Anticoagulation? 2.0 ? 3.0 Conventional Range 3.0 ? 4.5 Performed By: #### 2 641701, [id number] #### [facility] [address] [place] [address] PT Coag (PPP) [Time] 11.7 second(s) Normal 9.4-12.5 [facility] Comment on above: Result Comment: 15 d [...] the same coagulation reagent and instrumentation as [facility]. Currently there are no coagulation studies available worldwide for children to 14 days, and no normal ranges. Performed By: #### 2 023113, [id number] #### [facility] [address] [place] [address] Patient Education - Texton 0 1-13-2024 Patient [...] about working with a physical therapist or operations trainer to help you get stronger. General instructions ? Take kjeo-gfn-jtuslza and prescription medicines only as told by [...] provider. Document Revised: 04/30/2022 Document Reviewed: 04/30/2022 [employer] Patient Education ? 2022 [employer]. Obstetrics and Gynecology Urinary Tract Infection, Adult [...] (sexually transmitted (more content not included)... Normal [facility] Pre-Arrival Noteon Pre-Arrival Note Pre-Arrival Summary Name: blaine Current Date: 06/23/2023 01:37:08 EST Gender: Date of : Age: Pre-Arrival Type: EMS ETA: 06/23/2023 01:53:00 EST Primary Care Physician: Presenting Problem: possible stroke Pre-Arrival User: Tejal Gold RN Referring Source: Location: [place] Completion Date/Time: 06/23/2023 01:23:[address] [facility] Emergency Department Pre-Hospital Report Form _ Vital Signs: Pre-Hospital Report: Treatment in Route: Response to Treatment: Misc. Issues: Normal [facility] RAD - Preliminary Cat Scan R eporton 06-23-2023 RAD - Preliminary Cat Scan Report [id number]#1.00TIFF Normal [facility] Rapid COVID Antigen (MC)on 06-23-2023 Rapid COV Int NEG Ctl Pass [facility] Comment on above: Performed By: #### 2 037727, [id number] #### [facility] [address] [place] [address] Rapid COV Int POS Ctl Pass Normal [facility] Comment on above: Performed By: #### 2 810603, [id number] #### [facility] [address] [place] [address] SARS-CoV+SARS-CoV-2 (COVID-19) Ag IA.rapid Ql (Resp) Not detected Normal Not Detected [facility] Comment on above: Result Comment: The immatics biotechnologiesitor? System for Rapid Detection of SARS-CoV-2 is [...] other viruses or pathogens; and, in the [facility], this test is only authorized for the duration of the declaration that circumstances exist justifying the authorization of emergency use of in vitro diagnostics for detection and/or diagnosis of the virus that causes COVID-19 under Section 564(b)(1) of the Act, 21 U.S.C. ? 360bbb-3(b)(1), unless the authorization is terminated or revoked sooner. Performed By: #### 2 433087, [id number] #### [address] [address] TSH With T4fr Reflexon 06-23 TSH Qn 0.68 m[IU]/L Normal 0.34-5.60 [facility] Comment on above: Performed By: #### 2 180991, [id number] #### [facility] [address] [place] [address] Troponin 0 Hr.on 06-23-2023 Troponin 42.70 pg/mL Abnormal 10.10-27.10 [facility] Comment on above: Result Comment: Crit [...] High Sensitivity Troponin I Instructions For Use, BakedCode, January 2018) Performed By: #### 2 552394, [id number] #### [facility] [address] [place] [address] Troponin 3 Hr.on 06-23-2023 Troponin 116.80 pg/mL Abnormal 10.10-27.10 [facility] Comment on above: Result Comment: Crit [...] High Sensitivity Troponin I Instructions For Use, BakedCode, January 2018) Performed By: #### 1 [id number] #### [facility] [address] [place] [address] Troponin 6 Hr.on 06-23-2023 Troponin 183.20 pg/mL Abnormal 10.10-27.10 [facility] Comment on above: Result Comment: Crit [...] High Sensitivity Troponin I Instructions For Use, BakedCode, January 2018) Performed By: #### 1 [id number] #### [facility] [address] [place] [address] Troponin 9 Hr.on 06-23-2023 Troponin 187.00 pg/mL Abnormal 10.10-27.10 [facility] Comment on above: Result Comment: Crit ical Result Verified by Previous Result Critical Result I_TnIHS:187.0 Called to and read back by: ANGEL RESTREPO at: 06/23/2023 12:10:53 by:SYDNI The 95% CI (Confidence Interval) PPV (Positive Predictive Value) for myocardial infarction in females is 38 pg/mL, in males 51 pg/mL. The results should be used in conjunction with clinical conditions of myocardial infarction. (panpan High Sensitivity Troponin I Instructions For Use, BakedCode, January 2018) Performed By: #### 1 [id number] ####[facility] [address] [place] [address] UA With Cult Reflexon 2023 Bacteria LM Ql (Urine sed) 1+ /HPF Abnormal Trace [facility] Comment on above: Performed By: #### 1 4570737, [id number] #### [facility] [address] [place] [address] Bilirubin Ql (U) Negative Normal Negative [facility] Comment on above: Performed By: #### 1 9435669, [id number] #### [facility] [address] [place] [address] Clarity (U) SL CLOUDY Abnormal Clear [facility] Comment on above: Performed By: #### 1 9304612, [id number] #### [facility] [address] [place] [address] Color (U) YELLOW Normal Yellow [facility] Comment on above: Performed By: #### 1 2657330, 9248620 #### [facility] [address] [place] [address] Epithelial cells.squamous LM.HPF (Urine sed) [#/Area] 0-2 Normal 0-2 [facility] Comment on above: Performed By: #### 1 3588929, [id number] #### [facility] [address] [place] [address] Glucose Test strip (U) [Mass/Vol] Negative Normal Negative [facility] Comment on above: Performed By: #### 1 2059341, [id number] #### [facility] [address] [place] [address] Hemoglobin Ql (U) Negative Normal Negative [facility] Comment on above: Performed By: #### 1 7782232, 8249590 #### [facility] [address] [place] [address] Ketones (U) [Mass/Vol] Negative Normal Negative [facility] Comment on above: Performed By: #### 1 0164339, 0640887 #### [facility] [address] [place] [address] Mcroberts.plasma/Lithi um.RBC (Bld) [Mass ratio] 0-3 Normal 0-3 [facility] Comment on above: Performed By: #### 1 4416039, [id number] #### [facility] [address] [place] [address] Nitrite Ql (U) Negative Normal Negative [facility] Comment on above: Performed By: #### 1 5856491, 8541164 #### [facility] [address] [place] [address] pH (U) 7.5 [pH] Invalid Interpretation Code 5.0-9.0 [facility] Comment on above: Performed By: #### 1 7189729, 9701595 #### [facility] [address] [place] [address] Protein (U) [Mass/Vol] Negative Normal Negative [facility] Comment on above: Performed By: #### 1 0812355, [id number] #### [facility] [address] [place] [address] Specific gravity (U) [Rel density] 1.015 Invalid Interpretation Code 1.005-1.030 [facility] Comment on above: Performed By: #### 1 5788068, 2767665 #### [facility] [address] [place] [address] Urobilinogen Qn (U) 0.2 {Phoebe'U}/dL Normal 0.0-1.0 [facility] Comment on above: Performed By: #### 1 6227791, 3562591 #### [facility] [address] [place] [address] WBC Auto Ql (U) 1+ Abnormal Negative [facility] Comment on above: Performed By: #### 1 2724272, [id number] #### [facility] [address] [place] [address] WBC LM.HPF (Urine sed) [#/Area] 6-15 Abnormal 0-5 [facility] Comment on above: Performed By: #### 1 6917581, 3551368 #### [facility] [address] [place] [address] URINALYSISOrdered By: Hoang Chris on 06-23-2023 Bacteria [...] AM) Normal Negative [facility] UA Auto SS Mcroberts.plasma/Lithi um.RBC (Bld) [Mass ratio] 0-3 /HPF Normal [...] FT UA Auto SS Urobilinogen Qn (U) 0.3815476 {Phoebe'U}/dL Normal 0.0 - 1.0 EU/dL [facility] [...] mGy = na DAP = na Normal [facility] eGFRon 01-13-2024 GFR/1.73 sq M.predicted among non-blacks MDRD (S/P/Bld) [Vol rate/Area] mL/min/{1.73_m2} Normal >=59 [facility] Comment on above: Order Comment: Order added by Discern Expert. Performed By: #### 2 978078, [id number] #### [facility] [address] [place] [address] Creatinine (Bld) [Mass/Vol]O rdered By: Cathie Reid on 05-15-2023 Creatinine [Mass/Vol] 1.0 mg/dL 0.6-1.3 [facility] Comment on above: ER/ESD physician is notified/shown all ISTAT results.Critical values may be confirmed by laboratory testing ifdeemed necessary by ER attending doctor. ISTAT XRay CREon 05-15-2023 Creatinine [Mass/Vol] 1.0 mg/dL Normal 0.6-1.3 [facility] Comment on above: Result Comment: ER/E SD physician is notified/shown all ISTAT results. Critical values may be confirmed by laboratory testing if deemed necessary by ER attending doctor. Performed By: #### I SCRE #### [facility] [address] [place] [address] ISTAT GFR 58.023 Normal [facility] Comment on above: Result Comment: PERF ORMED BY: [place] [address] PATHOLOGIST FLAME PLANER MARISOL AGUSTIN M.D. Performed By: #### I SCRE #### [facility] [address] [place] [address] MR head/brain wo/w conon MR head/brain wo/w con [facility] Main [place] [address] [place] [address] MRI Report Signed Patient: Judith Khan MR#: [id number] 320 : 1945 Acct:[id number] Age/Sex: 78 / F ADM Date: 05/15/23 Loc: MR Room: Type: [facility] Attending Dr: Cathie CRAIGC Copies to: DIXIE [...] Adeel Meyer M.D.05/15/2023 5:24 PM Dictation Location: [place] [address] Transcribed By: [facility] 05/15/23 172 Dictated By: Adeel Meyer II, MD 05/15/23 171 Signed By: 05/15/231723 [facility] No Panel InformationOrdered By: Cathie Reid on 05-15-2023 Bedside Estimated GFR (eGFR) 58.023 [facility] 37on 01-12-2023 37 Hold metoprolol and see if fatigue levels improve Continue all other medications Monitor blood pressure 1-2 times a day and if it increases greater than 130/80 please call the office for medication adjustment, or for tachycardia/palpitations Normal [facility] Office Visiton 01-12-2023 Follow-up visit [id number] RhettbrianDonato chua raffy Davis 1945 F Date Provider Department Center 01/12/2023 [facility] Family History Problem Relation Age of Onset Stroke Mother Stroke Brother Other Mother's Sister Coronary artery disease Mother's Sister Stroke Maternal Grandmother Family Status - Relation Status Age at Mother Brother Mother's Sister Maternal Grandmother Level of Service:09584 HI OFFICE/OUTPATIENT ESTABLISHED LOW MDM 20-29 MIN Normal [facility] BNPon 10-09-2022 Natriuretic peptide B (Bld) [Mass/Vol] 90.0 pg/mL Normal <=1,800.[address] [facility] Comment on above: Performed By: #### M G, CMP, TSH, T7, BNP #### [facility] [address] [place] [address] Dr. Glenys Holly CBC AUTO DIFFon 10-09-2022 BASO # 0.1 103/ul Normal 0.0-0.[address] [facility] Comment on above: Performed By: #### M G, CMP, TSH, T7, BNP #### [facility] [address] [place] [address] [address] Glenys Holly Basophils/100 WBC (Bld) 1.0 % Normal 0.2-2.[address] [facility] Comment on above: Performed By: #### M G, CMP, TSH, T7, BNP #### [facility] [address] [place] [address] [address] Glenys Holly EO # 0.5 103/ul Normal 0.0-0.[address] [facility] Comment on above: Performed By: #### M G, CMP, TSH, T7, BNP #### [facility] [address] [place] [address] Dr. Glenys Holly Eosinophils/100 WBC (Bld) 6.4 % Normal 0.9-7.[address] [facility] Comment on above: Performed By: #### M G, CMP, TSH, T7, BNP #### [facility] [address] [place] [address] Dr. Glenys Holly Erythrocyte distribution width (RBC) [Ratio] 15.4 % Critically high 11.0-15.0 [facility] Comment on above: Performed By: #### M G, CMP, TSH, T7, BNP #### [facility] [address] [place] [address] Dr. Glenys Holly Hematocrit (Bld) [Volume fraction] 42.8 % Normal 36.0-48.0 [facility] Comment on above: Performed By: #### M G, CMP, TSH, T7, BNP #### [facility] [address] [place] [address] Dr. Glenys Holly Hemoglobin (Bld) [Mass/Vol] 14.1 g/dL Normal 12.0-16.0 [facility] Comment on above: Performed By: #### M G, CMP, TSH, T7, BNP #### [facility] [address] [place] [address] Dr. Glenys Holly IG # 0.01 10e3/ul Normal 0.00-0.[address] [facility] Comment on above: Performed By: #### M G, CMP, TSH, T7, BNP #### [facility] [address] [place] [address] Dr. Glenys Holly IG % 0.1 % Normal 0.0-0.[address] [facility] Comment on above: Performed By: #### M G, CMP, TSH, T7, BNP #### [facility] [address] [place] [address] Dr. Glenys Holly LYMPH # 3.3 103/ul Normal 1.2-3.[address] [facility] Comment on above: Performed By: #### M G, CMP, TSH, T7, BNP #### [facility] [address] [place] [address] Dr. Glenys Holly Lymphocytes/100 WBC (Bld) 44.2 % Normal 20.5-60.0 [facility] Comment on above: Performed By: #### M G, CMP, TSH, T7, BNP #### [facility] [address] [place] [address] Dr. Glenys Holly MANUAL DIFF REQ NO Normal [facility] Comment on above: Performed By: #### M G, CMP, TSH, T7, BNP #### [facility] [address] [place] [address] Dr. Glenys Holly MCH (RBC) [Entitic mass] 30.3 pg Normal 26.7-34.[address] [facility] Comment on above: Performed By: #### M G, CMP, TSH, T7, BNP #### [facility] [address] [place] [address] Dr. Glenys Holly MCHC (RBC) [Mass/Vol] 32.9 g/dL Normal 29.9-35.[address] [facility] Comment on above: Performed By: #### M G, CMP, TSH, T7, BNP #### [facility] [address] [place] [address] Dr. Glenys Holly MCV (RBC) [Entitic vol] 92.0 fL Normal 81.0-99.0 [facility] Comment on above: Performed By: #### M G, CMP, TSH, T7, BNP #### [facility] [address] [place] [address] Dr. Glenys Holly MONO # 1.2 103/ul Critically high 0.3-0.[address] [facility] Comment on above: Performed By: #### M G, CMP, TSH, T7, BNP #### [facility] [address] [place] [address] Dr. Glenys Holly Monocytes/100 WBC (Bld) 16.4 % Critically high 1.7-12.0 [facility] Comment on above: Performed By: #### M G, CMP, TSH, T7, BNP #### [facility] [address] [place] [address] Dr. Glenys Holly NEUT # 2.4 103/ul Normal 1.4-6.5 [facility] Comment on above: Performed By: #### M G, CMP, TSH, T7, BNP #### [facility] [address] [place], [place] [address] Dr. Glenys Holly Neutrophils/100 WBC (Bld) 31.9 % Critically low 43.0-75.0 [facility] Comment on above: Performed By: #### M G, CMP, TSH, T7, BNP #### [facility] [address] [address] [address] Glenys Holly Platelet mean volume (Bld) [Entitic vol] 10.3 fL Normal 9.5-13.5 [facility] Comment on above: Performed By: #### M G, CMP, TSH, T7, BNP #### [facility] [address] [place] [address] Dr. Glenys Holly PLT 379 103/ul Normal 150-450 [facility] Comment on above: Performed By: #### M G, CMP, TSH, T7, BNP #### [facility] [address] [place] [address] Dr. Glenys Holly RBC 4.65 106/ul Normal 4.20-5.40 [facility] Comment on above: Performed By: #### M G, CMP, TSH, T7, BNP #### [facility] [address] [place] [address] Dr. Glenys Holly WBC 7.4 103/ul Normal 4.0-11.0 [facility] Comment on above: Performed By: #### M G, CMP, TSH, T7, BNP #### [facility] [address] [place] [address] Dr. Glenys Holly FERRITINon 10-09-2022 Ferritin [Mass/Vol] 68.0 ng/mL Normal 8.0-252.0 [facility] Comment on above: Performed By: #### F ERR, IRON, VITAD ####[facility] [address] [address]Dr. Glenys Holly FREE THYROXINE INDEX T7on FTI 3.10 Normal 1.30-4.50 [facility] Comment on above: Performed By: #### M G, CMP, TSH, T7, BNP #### [facility] [address] [place] [address] Dr. Glenys Holly T3U 36.0 % Normal 30.0-39.0 [facility] Comment on above: Performed By: #### M G, CMP, TSH, T7, BNP #### [facility] [address] [address] [address] Glenys Holly T4 [Mass/Vol] 8.60 ug/dL Normal 4.80-13.90 [facility] Comment on above: Performed By: #### M G, CMP, TSH, T7, BNP #### [facility] [address] [address] [address] Glenys Holly IRONon 10-09-2022 Iron [Mass/Vol] 52.0 ug/dL Normal 50.0-170.0 [facility] Comment on above: Performed By: #### F ERR, IRON, VITAD ####[facility] [address] [address]Dr. Glenys Holly MAGNESIUMon 10-09-2022 Magnesium [Mass/Vol] 2.0 mg/dL Normal 1.8-2.4 [facility] Comment on above: Performed By: #### M G, CMP, TSH, T7, BNP #### [facility] [address] [address] [address] Glenys Holly PROF 14(COMP METB)on 023 Albumin [Mass/Vol] 3.5 g/dL Normal 3.4-5.0 [facility] Comment on above: Performed By: #### M G, CMP, TSH, T7, BNP #### [facility] [address] [address] [address] Glenys Holly Albumin/Globulin [Mass ratio] 1.0 {ratio} Normal [facility] Comment on above: Performed By: #### M G, CMP, TSH, T7, BNP #### [facility] [address] [address] [address] Glenys Holly ALP [Catalytic activity/Vol] 134 U/L Critically high 46-116 [facility] Comment on above: Performed By: #### M G, CMP, TSH, T7, BNP #### [facility] [address] [address] [address] Glenys Holly ALT [Catalytic activity/Vol] 34 U/L Normal 14-59 [facility] Comment on above: Performed By: #### M G, CMP, TSH, T7, BNP #### [facility] [address] [address] [address] Glenys Holly Anion gap [Moles/Vol] 8.8 mmol/L Normal [facility] Comment on above: Performed By: #### M G, CMP, TSH, T7, BNP #### [facility] [address] [address] [address] Glenys Holly AST [Catalytic activity/Vol] 19 U/L Normal 15-37 [facility] Comment on above: Performed By: #### M G, CMP, TSH, T7, BNP #### [facility] [address] [place] [address] Dr. Glenys Holly Bilirubin [Mass/Vol] 0.2 mg/dL Normal 0.2-1.0 [facility] Comment on above: Performed By: #### M G, CMP, TSH, T7, BNP #### [facility] [address] [address] [address] Glenys Holly Calcium [Mass/Vol] 10.6 mg/dL Critically high 8.5-10.1 [facility] Comment on above: Performed By: #### M G, CMP, TSH, T7, BNP #### [facility] [address] [address] [address] Glenys Holly Chloride [Moles/Vol] 105 mmol/L Normal 98-107 [facility] Comment on above: Performed By: #### M G, CMP, TSH, T7, BNP #### [facility] [address] [address] [address] Glenys Holly CO2 [Moles/Vol] 30.0 mmol/L Normal 21.0-32.0 [facility] Comment on above: Performed By: #### M G, CMP, TSH, T7, BNP #### [facility] [address] [address] [address] Glenys Holly Creatinine [Mass/Vol] 0.86 mg/dL Normal 0.55-1.02 [facility] Comment on above: Performed By: #### M G, CMP, TSH, T7, BNP #### [facility] [address] [address] [address] Glenys Holly EGFR-AF MICRONESIAN >60 Normal >=60 [facility] Comment on above: Performed By: #### M G, CMP, TSH, T7, BNP #### [facility] [address] [address] [address] Glenys Holly EGFR-NON AF MICRONESIAN >60 Normal >=[address] [facility] Comment on above: Performed By: #### M G, CMP, TSH, T7, BNP #### [facility] [address] [place] [address] Dr. Glenys Holly Globulin (S) [Mass/Vol] 3.5 g/dL Normal [facility] Comment on above: Performed By: #### M G, CMP, TSH, T7, BNP #### [facility] [address] [place] [address] Dr. Glenys Holly Glucose [Mass/Vol] 99 mg/dL Normal 74-106 [facility] Comment on above: Performed By: #### M G, CMP, TSH, T7, BNP #### [facility] [address] [place] [address] Dr. Glenys Holly Potassium [Moles/Vol] 3.8 mmol/L Normal 3.5-5.[address] [facility] Comment on above: Performed By: #### M G, CMP, TSH, T7, BNP #### [facility] [address] [place] [address] Dr. Glenys Holly Protein [Mass/Vol] 7.0 g/dL Normal 6.4-8.2 [facility] Comment on above: Performed By: #### M G, CMP, TSH, T7, BNP #### [facility] [address] [place] [address] Dr. Glenys Holly Sodium [Moles/Vol] 140 mmol/L Normal 136-145 [facility] Comment on above: Performed By: #### M G, CMP, TSH, T7, BNP #### [facility] [address] [address] [address] Glenys Holly Urea nitrogen [Mass/Vol] 25.0 mg/dL Critically high 7.0-18.0 [facility] Comment on above: Performed By: #### M G, CMP, TSH, T7, BNP #### [facility] [address] [address] [address] Glenys Holly Urea nitrogen/Creatinine [Mass ratio] 29.1 mg/mg Normal [facility] Comment on above: Performed By: #### M G, CMP, TSH, T7, BNP #### [facility] [address] [address] [address] Glenys Holly TSHon 10-09-2022 TSH 1.720 uIU/mL Normal 0.358-3.740 [facility] Comment on above: Performed By: #### M G, CMP, TSH, T7, BNP #### [facility] [address] [address] [address] Glenys Holly VITAMIN D 25 OHon 10-09-2022 VIT D 25-OH 89.3 ng/mL Normal [facility] Comment on above: Performed By: #### F ERR, IRON, VITAD ####[facility] [address] [id number]. Glenys Holly VIT D RANGES SEE BELOW Normal [facility] Comment on above: Result Comment: <20 ng/mL Vit D deficient 20 - <30 ng/mL Vit D insufficient 30 - 100 ng/mL Vit D sufficient >100 ng/mL Potential Toxicity Performed By: #### F ERR, IRON, VITAD ####[facility] [address] [id number]. Glenys Holly Office Visiton 07-19-2022 Follow-up visit [id number] Donato Khan 1945 F Date Provider Department Center 07/19/2022 Trey8STEPHENIE ORTEGA [facility] Family History Problem Relation Age of Onset Stroke Mother Stroke Brother Other Mother's Sister Coronary artery disease Mother's Sister Stroke Maternal Grandmother Family Status - Relation Status Age at Mother Brother Mother's Sister Maternal Grandmother Level of Service:36267 HI OFFICE/OUTPATIENT ESTABLISHED LOW MDM 20-29 MIN Reason for Visit and Comments: Hyperlipidemia [182] Hypertension [823473] Normal [facility] NM STRESS/REST MULTIon 05-24 NM STRESS/REST MULTI Patient: Shana KHAN Exam Date: 05/24/2022 : 1945 Gender:F Ordering : DR RODRICK SAMS . Admission #: [id number] Family : Order #: [id number] CLICK HERE TO VIEW EXAM RADIOLOGY REPORT [...] M.D. on 05/24/2022 at 16:[address] [facility] BNPon 05-10-2022 Natriuretic peptide B (Bld) [Mass/Vol] 1305.0 pg/mL Normal <=1,800.0 [facility] Comment on above: Performed By: #### M G, CMP, TSH, T7, BNP #### [facility] [address] [place] [address] Dr. Glenys Holly CBC AUTO DIFFon 05-10-2022 BASO # 0.0 103/ul Normal 0.0-0.1 [facility] Comment on above: Performed By: #### M G, CMP, TSH, T7, BNP #### [facility] [address] [place] [address] Dr. Glenys Holly Basophils/100 WBC (Bld) 0.3 % Normal 0.2-2.[address] [facility] Comment on above: Performed By: #### M G, CMP, TSH, T7, BNP #### [facility] [address] [place] [address] Dr. Glenys Holly EO # 0.0 103/ul Normal 0.0-0.[address] [facility] Comment on above: Performed By: #### M G, CMP, TSH, T7, BNP #### [facility] [address] [place] [address] Dr. Glenys Holly Eosinophils/100 WBC (Bld) 0.1 % Critically low 0.9-7.[address] [facility] Comment on above: Performed By: #### M G, CMP, TSH, T7, BNP #### [facility] [address] [place] [address] Dr. Glenys Holly Erythrocyte distribution width (RBC) [Ratio] 15.1 % Critically high 11.0-15.[address] [facility] Comment on above: Performed By: #### M G, CMP, TSH, T7, BNP #### [facility] [address] [place] [address] Dr. Glenys Holly Hematocrit (Bld) [Volume fraction] 42.9 % Normal 36.0-48.[address] [facility] Comment on above: Performed By: #### M G, CMP, TSH, T7, BNP #### [facility] [address] [place] [address] Dr. Glenys Holly Hemoglobin (Bld) [Mass/Vol] 14.6 g/dL Normal 12.0-16.[address] [facility] Comment on above: Performed By: #### M G, CMP, TSH, T7, BNP #### [facility] [address] [place] [address] Dr. Glenys Holly IG # 0.05 10e3/ul Critically high 0.00-0.03 [facility] Comment on above: Performed By: #### M G, CMP, TSH, T7, BNP #### [facility] [address] [place] [address] Dr. Glenys Holly IG % 0.7 % Critically high 0.0-0.5 [facility] Comment on above: Performed By: #### M G, CMP, TSH, T7, BNP #### [facility] [address] [place] [address] Dr. Glenys Holly LYMPH # 1.6 103/ul Normal 1.2-3.8 [facility] Comment on above: Performed By: #### M G, CMP, TSH, T7, BNP #### [facility] [address] [place] [address] Dr. Glenys Holly Lymphocytes/100 WBC (Bld) 20.4 % Critically low 20.5-60.0 [facility] Comment on above: Performed By: #### M G, CMP, TSH, T7, BNP #### [facility] [address] [place] [address] Dr. Glenys Holly MANUAL DIFF REQ NO Normal [facility] Comment on above: Performed By: #### M G, CMP, TSH, T7, BNP #### [facility] [address] [place] [address] Dr. Glenys Holly MCH (RBC) [Entitic mass] 29.9 pg Normal 26.7-34.0 [facility] Comment on above: Performed By: #### M G, CMP, TSH, T7, BNP #### [facility] [address] [place] [address] Dr. Glenys Holly MCHC (RBC) [Mass/Vol] 34.0 g/dL Normal 29.9-35.2 [facility] Comment on above: Performed By: #### M G, CMP, TSH, T7, BNP #### [facility] [address] [place] [address] Dr. Glenys Holly MCV (RBC) [Entitic vol] 87.9 fL Normal 81.0-99.[address] [facility] Comment on above: Performed By: #### M G, CMP, TSH, T7, BNP #### [facility] [address] [place] [address] Dr. Glenys Holly MONO # 0.7 103/ul Normal 0.3-0.[address] [facility] Comment on above: Performed By: #### M G, CMP, TSH, T7, BNP #### [facility] [address] [place] [address] Dr. Glenys Holly Monocytes/100 WBC (Bld) 9.5 % Normal 1.7-12.[address] [facility] Comment on above: Performed By: #### M G, CMP, TSH, T7, BNP #### [facility] [address] [place] [address] Dr. Glenys Holly NEUT # 5.2 103/ul Normal 1.4-6.5 [facility] Comment on above: Performed By: #### M G, CMP, TSH, T7, BNP #### [facility] [address] [place] [address] Dr. Glenys Holly Neutrophils/100 WBC (Bld) 69.0 % Normal 43.0-75.[address] [facility] Comment on above: Performed By: #### M G, CMP, TSH, T7, BNP #### [facility] [address] [place] [address] Dr. Glenys Holly Platelet mean volume (Bld) [Entitic vol] 11.2 fL Normal 9.5-13.[address] [facility] Comment on above: Performed By: #### M G, CMP, TSH, T7, BNP #### [facility] [address] [place] [address] Dr. Glenys Holly PLT 349 103/ul Normal 150-[address] [facility] Comment on above: Performed By: #### M G, CMP, TSH, T7, BNP #### [facility] [address] [place] [address] Dr. Glenys Holly RBC 4.88 106/ul Normal 4.20-5.40 [facility] Comment on above: Performed By: #### M G, CMP, TSH, T7, BNP #### [facility] [address] [address] [address] Glenys Holly WBC 7.6 103/ul Normal 4.0-11.0 [facility] Comment on above: Performed By: #### M G, CMP, TSH, T7, BNP #### [facility] [address] [address] [address] Glenys Holly PROF 14(COMP METB)on 022 Albumin [Mass/Vol] 3.3 g/dL Critically low 3.4-5.0 [facility] Comment on above: Performed By: #### H STROPN, BNP, CMP ####[facility] [address] [place] [address]DrRatna Holly Albumin/Globulin [Mass ratio] 1.1 {ratio} Normal [facility] Comment on above: Performed By: #### H STROPN, BNP, CMP ####[facility] [address] [address]DrRatna Holly ALP [Catalytic activity/Vol] 78 U/L Normal 46-116 [facility] Comment on above: Performed By: #### H STROPN, BNP, CMP ####[facility] [address] [place] [address]DrRatna Holly ALT [Catalytic activity/Vol] 10 U/L Critically low 14-59 [facility] Comment on above: Performed By: #### H STROPN, BNP, CMP ####[facility] [address] [place] [address]DrRatna Holly Anion gap [Moles/Vol] 11.2 mmol/L Normal [facility] Comment on above: Performed By: #### H STROPN, BNP, CMP ####[facility] [address] [address]DrRatna Holly AST [Catalytic activity/Vol] 15 U/L Normal 15-37 [facility] Comment on above: Performed By: #### H STROPN, BNP, CMP ####[facility] [address] [address]Dr. Glenys Holly Bilirubin [Mass/Vol] 0.4 mg/dL Normal 0.2-1.0 [facility] Comment on above: Performed By: #### H STROPN, BNP, CMP ####[facility] [address] [place] [address]Dr. Glenys Holly Calcium [Mass/Vol] 8.9 mg/dL Normal 8.5-10.1 [facility] Comment on above: Performed By: #### H STROPN, BNP, CMP ####[facility] [address] [place], [place] [address]Dr. Glenys Holly Chloride [Moles/Vol] 98 mmol/L Normal 98-107 [facility] Comment on above: Performed By: #### H STROPN, BNP, CMP ####[facility] [address] [place], [place] [address]Dr. Glenys Holly CO2 [Moles/Vol] 31.1 mmol/L Normal 21.0-32.0 [facility] Comment on above: Performed By: #### H STROPN, BNP, CMP ####[facility] [address] [place], [place] [address]Dr. Glenys Holly Creatinine [Mass/Vol] 1.15 mg/dL Critically high 0.55-1.02 [facility] Comment on above: Performed By: #### H STROPN, BNP, CMP ####[facility] [address] [place], [place] [address]Dr. Glenys Holly EGFR-AF MICRONESIAN 56 mL/min/1.73m2 Critically low >=[address] [facility] Comment on above: Performed By: #### H STROPN, BNP, CMP ####[facility] [address] [place], [place] [address]Dr. Glenys Holly EGFR-NON AF MICRONESIAN 46 mL/min/1.73m2 Critically low >=[address] [facility] Comment on above: Performed By: #### H STROPN, BNP, CMP ####[facility] [address] [place] [address]Dr. Glenys Holly Globulin (S) [Mass/Vol] 3.0 g/dL Normal [facility] Comment on above: Performed By: #### H STROPN, BNP, CMP ####[facility] [address] [place] [address]Dr. Glenys Holly Glucose [Mass/Vol] 107 mg/dL Critically high 74-106 [facility] Comment on above: Performed By: #### H STROPN, BNP, CMP ####[facility] [address] [place] [address]Dr. Glenys Holly Potassium [Moles/Vol] 3.3 mmol/L Critically low 3.5-5.1 [facility] Comment on above: Performed By: #### H STROPN, BNP, CMP ####[facility] [address] [place] [address]Dr. Glenys Holly Protein [Mass/Vol] 6.3 g/dL Critically low 6.4-8.2 [facility] Comment on above: Performed By: #### H STROPN, BNP, CMP ####[facility] [address] [place], [place] [address]Dr. Glenys Holly Sodium [Moles/Vol] 137 mmol/L Normal 136-145 [facility] Comment on above: Performed By: #### H STROPN, BNP, CMP ####[facility] [address] [place] [address]Dr. Glenys Holly Urea nitrogen [Mass/Vol] 29.0 mg/dL Critically high 7.0-18.0 [facility] Comment on above: Performed By: #### H STROPN, BNP, CMP ####[facility] [address] [place] [address]Dr. Glenys Holly Urea nitrogen/Creatinine [Mass ratio] 25.2 mg/mg [facility] Comment on above: Performed By: #### H STROPN, BNP, CMP ####[facility] [address] [place] [place] [address]Dr. Glenys Holly TROPONIN, HIGH SENSITIVITYon 05-10-2022 HSTROP 50.5 pg/mL Normal 4.0-51.[address] [facility] Comment on above: Result Comment: CUT- OFF POINTS HAVE BEEN ESTABLISHED BASED ON THE FOURTH UNIVERSAL DEFINITIONS OF MYOCARDIAL INFARCTION. THE UPPER REFERENCE LIMIT (URL) OF TROPONIN, DEFINED THE 99TH PERCENTILE OF cTnI DISTRIBUTION IN A REFERENCE POPULATION, HAS BEEN CONFIRMED THE DECISION THRESHOLD FOR [place] DIAGNOSIS. Performed By: #### H STROPN, BNP, CMP ####[facility] [address] [place], [place] [address]MlDr. Glenys Holly XR CHEST 2 Von 05-10-2022 [...] RAMIRO SPENCER Date: 2022-05-10 08:[address] [facility] BNPon 05-09-2022 Natriuretic peptide B (Bld) [Mass/Vol] 1975.0 pg/mL Critically high <=1,800.[address] [facility] Comment on above: Performed By: #### M G, CMP, TSH, T7, BNP #### [facility] [address] [place], [place] [address] Dr. Glenys Holly CBC AUTO DIFFon 05-09-2022 BASO # 0.0 103/ul Normal 0.0-0.[address] [facility] Comment on above: Performed By: #### M G, CMP, TSH, T7, BNP #### [facility] [address] [place], [place] [address] Dr. Glenys Holly Basophils/100 WBC (Bld) 0.4 % Normal 0.2-2.[address] [facility] Comment on above: Performed By: #### M G, CMP, TSH, T7, BNP #### [facility] [address] [place] [address] Dr. Glenys Holly EO # 0.0 103/ul Normal 0.0-0.7 [facility] Comment on above: Performed By: #### M G, CMP, TSH, T7, BNP #### [facility] [address] [place] [address] Dr. Glenys Holly Eosinophils/100 WBC (Bld) 0.0 % Critically low 0.9-7.0 [facility] Comment on above: Performed By: #### M G, CMP, TSH, T7, BNP #### [facility] [address] [place] [address] Dr. Glenys Holly Erythrocyte distribution width (RBC) [Ratio] 15.2 % Critically high 11.0-15.0 [facility] Comment on above: Performed By: #### M G, CMP, TSH, T7, BNP #### [facility] [address] [place] [address] Dr. Glenys Holly Hematocrit (Bld) [Volume fraction] 41.7 % Normal 36.0-48.0 [facility] Comment on above: Performed By: #### M G, CMP, TSH, T7, BNP #### [facility] [address] [place] [address] Dr. Glenys Holly Hemoglobin (Bld) [Mass/Vol] 14.1 g/dL Normal 12.0-16.0 [facility] Comment on above: Performed By: #### M G, CMP, TSH, T7, BNP #### [facility] [address] [place] [address] Dr. Glenys Holly IG # 0.12 10e3/ul Critically high 0.00-0.03 [facility] Comment on above: Performed By: #### M G, CMP, TSH, T7, BNP #### [facility] [address] [place] [address] Dr. Glenys Holly IG % 1.2 % Critically high 0.0-0.5 [facility] Comment on above: Performed By: #### M G, CMP, TSH, T7, BNP #### [facility] [address] [place] [address] Dr. Glenys Holly LYMPH # 1.6 103/ul Normal 1.2-3.[address] [facility] Comment on above: Performed By: #### M G, CMP, TSH, T7, BNP #### [facility] [address] [place] [address] Dr. Glenys Holly Lymphocytes/100 WBC (Bld) 16.0 % Critically low 20.5-60.0 [facility] Comment on above: Performed By: #### M G, CMP, TSH, T7, BNP #### [facility] [address] [place] [address] Dr. Glenys Holly MANUAL DIFF REQ NO Normal [facility] Comment on above: Performed By: #### M G, CMP, TSH, T7, BNP #### [facility] [address] [place] [address] Dr. Glenys Holly MCH (RBC) [Entitic mass] 30.0 pg Normal 26.7-34.0 [facility] Comment on above: Performed By: #### M G, CMP, TSH, T7, BNP #### [facility] [address] [place] [address] Dr. Glenys Holly MCHC (RBC) [Mass/Vol] 33.8 g/dL Normal 29.9-35.2 [facility] Comment on above: Performed By: #### M G, CMP, TSH, T7, BNP #### [facility] [address] [place] [address] Dr. Glenys Holly MCV (RBC) [Entitic vol] 88.7 fL Normal 81.0-99.0 [facility] Comment on above: Performed By: #### M G, CMP, TSH, T7, BNP #### [facility] [address] [place] [address] Dr. Glenys Holly MONO # 1.3 103/ul Critically high 0.3-0.[address] [facility] Comment on above: Performed By: #### M G, CMP, TSH, T7, BNP #### [facility] [address] [place] [address] Dr. Glenys Holly Monocytes/100 WBC (Bld) 13.2 % Critically high 1.7-12.0 [facility] Comment on above: Performed By: #### M G, CMP, TSH, T7, BNP #### [facility] [address] [address] [address] Glenys Holly NEUT # 6.8 103/ul Critically high 1.4-6.[address] [facility] Comment on above: Performed By: #### M G, CMP, TSH, T7, BNP #### [facility] [address] [place] [address] Dr. Glenys Holly Neutrophils/100 WBC (Bld) 69.2 % Normal 43.0-75.0 [facility] Comment on above: Performed By: #### M G, CMP, TSH, T7, BNP #### [facility] [address] [place] [address] Dr. Glenys Holly Platelet mean volume (Bld) [Entitic vol] 11.6 fL Normal 9.5-13.5 [facility] Comment on above: Performed By: #### M G, CMP, TSH, T7, BNP #### [facility] [address] [place] [address] Dr. Glenys Holly PLT 329 103/ul Normal 150-[address] [facility] Comment on above: Performed By: #### M G, CMP, TSH, T7, BNP #### [facility] [address] [place] [address] Dr. Glenys Holly RBC 4.70 106/ul Normal 4.20-5.[address] [facility] Comment on above: Performed By: #### M G, CMP, TSH, T7, BNP #### [facility] [address] [place] [address] Dr. Glenys Holly WBC 9.9 103/ul Normal 4.0-11.0 [facility] Comment on above: Performed By: #### M G, CMP, TSH, T7, BNP #### [facility] [address] [place] [address] Dr. Glenys Holly PROF 14(COMP METB)on 022 Albumin [Mass/Vol] 3.0 g/dL Critically low 3.4-5.[address] [facility] Comment on above: Performed By: #### M G, CMP, TSH, T7, BNP #### [facility] [address] [address] [address] Glenys Holly Albumin/Globulin [Mass ratio] 1.1 {ratio} Normal [facility] Comment on above: Performed By: #### M G, CMP, TSH, T7, BNP #### [facility] [address] [address] [address] Glenys Holly ALP [Catalytic activity/Vol] 78 U/L Normal 46-116 [facility] Comment on above: Performed By: #### M G, CMP, TSH, T7, BNP #### [facility] [address] [address] [address] Glenys Holly ALT [Catalytic activity/Vol] 10 U/L Critically low 14-59 [facility] Comment on above: Performed By: #### M G, CMP, TSH, T7, BNP #### [facility] [address] [address] [address] Glenys Holly Anion gap [Moles/Vol] 9.6 mmol/L Normal [facility] Comment on above: Performed By: #### M G, CMP, TSH, T7, BNP #### [facility] [address] [address] [address] Glenys Holly AST [Catalytic activity/Vol] 18 U/L Normal 15-37 [facility] Comment on above: Performed By: #### M G, CMP, TSH, T7, BNP #### [facility] [address] [address] [address] Glenys Holly Bilirubin [Mass/Vol] 0.3 mg/dL Normal 0.2-1.0 [facility] Comment on above: Performed By: #### M G, CMP, TSH, T7, BNP #### [facility] [address] [address] [address] Glenys Holly Calcium [Mass/Vol] 9.1 mg/dL Normal 8.5-10.1 [facility] Comment on above: Performed By: #### M G, CMP, TSH, T7, BNP #### [facility] [address] [place] [address] Dr. Glenys Holly Chloride [Moles/Vol] 102 mmol/L Normal 98-[address] [facility] Comment on above: Performed By: #### M G, CMP, TSH, T7, BNP #### [facility] [address] [place] [address] Dr. Glenys Holly CO2 [Moles/Vol] 30.3 mmol/L Normal 21.0-32.0 [facility] Comment on above: Performed By: #### M G, CMP, TSH, T7, BNP #### [facility] [address] [place] [address] Dr. Glenys Holly Creatinine [Mass/Vol] 0.83 mg/dL Normal 0.55-1.[address] [facility] Comment on above: Performed By: #### M G, CMP, TSH, T7, BNP #### [facility] [address] [place] [address] Dr. Glenys Holly EGFR-AF MICRONESIAN >60 Normal >=60 [facility] Comment on above: Performed By: #### M G, CMP, TSH, T7, BNP #### [facility] [address] [place] [address] Dr. Glenys Holly EGFR-NON AF MICRONESIAN >60 Normal >=[address] [facility] Comment on above: Performed By: #### M G, CMP, TSH, T7, BNP #### [facility] [address] [place] [address] Dr. Glenys Holly Globulin (S) [Mass/Vol] 2.8 g/dL Normal [facility] Comment on above: Performed By: #### M G, CMP, TSH, T7, BNP #### [facility] [address] [place] [address] Dr. Glenys Holly Glucose [Mass/Vol] 105 mg/dL Normal 74-106 [facility] Comment on above: Performed By: #### M G, CMP, TSH, T7, BNP #### [facility] [address] [address] [address] Glenys Holly Potassium [Moles/Vol] 2.9 mmol/L Critically low 3.5-5.1 [facility] Comment on above: Performed By: #### M G, CMP, TSH, T7, BNP #### [facility] [address] [address] [address] Glenys Holly Protein [Mass/Vol] 5.8 g/dL Critically low 6.4-8.2 [facility] Comment on above: Performed By: #### M G, CMP, TSH, T7, BNP #### [facility] [address] [address] [address] Glenys Holly Sodium [Moles/Vol] 138 mmol/L Normal 136-145 [facility] Comment on above: Performed By: #### M G, CMP, TSH, T7, BNP #### [facility] [address] [address] [address] Glenys Holly Urea nitrogen [Mass/Vol] 21.0 mg/dL Critically high 7.0-18.0 [facility] Comment on above: Performed By: #### M G, CMP, TSH, T7, BNP #### [facility] [address] [address] [address] Glenys Holly Urea nitrogen/Creatinine [Mass ratio] 25.3 mg/mg Normal [facility] Comment on above: Performed By: #### M G, CMP, TSH, T7, BNP #### [facility] [address] [address] [address] Glenys Holly TROPONIN, HIGH SENSITIVITYon 05-09-2022 HSTROP 49.8 pg/mL Normal 4.0-51.3 [facility] Comment on above: Result Comment: CUT- OFF POINTS HAVE BEEN ESTABLISHED BASED ON THE FOURTH UNIVERSAL DEFINITIONS OF MYOCARDIAL INFARCTION. THE UPPER REFERENCE LIMIT (URL) OF TROPONIN, DEFINED THE 99TH PERCENTILE OF cTnI DISTRIBUTION IN A REFERENCE POPULATION, HAS BEEN CONFIRMED THE DECISION THRESHOLD FOR [place] DIAGNOSIS. Performed By: #### M G, CMP, TSH, T7, BNP #### [facility] [address] [address] [address] Glenys Holly BNPon 05-08-2022 Natriuretic peptide B (Bld) [Mass/Vol] 2723.0 pg/mL Critically high <=1,800.[address] [facility] Comment on above: Performed By: #### C MP, HSTROPN, BNP ####[facility] [id number] [address]Dr. Glenys Holly CBC AUTO DIFFon 05-08-2022 BASO # 0.0 103/ul Normal 0.0-0.[address] [facility] Comment on above: Performed By: #### M G, CMP, TSH, T7, BNP #### [facility] [address] [address] [address] Glenys Holly Basophils/100 WBC (Bld) 0.2 % Normal 0.2-2.[address] [facility] Comment on above: Performed By: #### M G, CMP, TSH, T7, BNP #### [facility] [address] [place] [address] Dr. Glenys Holly EO # 0.0 103/ul Normal 0.0-0.[address] [facility] Comment on above: Performed By: #### M G, CMP, TSH, T7, BNP #### [facility] [address] [address] [address] Glenys Holly Eosinophils/100 WBC (Bld) 0.1 % Critically low 0.9-7.[address] [facility] Comment on above: Performed By: #### M G, CMP, TSH, T7, BNP #### [facility] [address] [place] [address] Dr. Glenys Holly Erythrocyte distribution width (RBC) [Ratio] 15.9 % Critically high 11.0-15.[address] [facility] Comment on above: Performed By: #### M G, CMP, TSH, T7, BNP #### [facility] [address] [place] [address] Dr. Glenys Holly Hematocrit (Bld) [Volume fraction] 38.0 % Normal 36.0-48.[address] [facility] Comment on above: Performed By: #### M G, CMP, TSH, T7, BNP #### [facility] [address] [place] [address] Dr. Glenys Holly Hemoglobin (Bld) [Mass/Vol] 12.5 g/dL Normal 12.0-16.0 [facility] Comment on above: Performed By: #### M G, CMP, TSH, T7, BNP #### [facility] [address] [place] [address] Dr. Glenys Holly IG # 0.17 10e3/ul Critically high 0.00-0.03 [facility] Comment on above: Performed By: #### M G, CMP, TSH, T7, BNP #### [facility] [address] [place] [address] Dr. Glenys Holly IG % 1.1 % Critically high 0.0-0.5 [facility] Comment on above: Performed By: #### M G, CMP, TSH, T7, BNP #### [facility] [address] [place] [address] Dr. Glenys Holly LYMPH # 1.0 103/ul Critically low 1.2-3.8 [facility] Comment on above: Performed By: #### M G, CMP, TSH, T7, BNP #### [facility] [address] [place] [address] Dr. Glenys Holly Lymphocytes/100 WBC (Bld) 6.2 % Critically low 20.5-60.0 [facility] Comment on above: Performed By: #### M G, CMP, TSH, T7, BNP #### [facility] [address] [place] [address] Dr. Glenys Holly MANUAL DIFF REQ NO Normal [facility] Comment on above: Performed By: #### M G, CMP, TSH, T7, BNP #### [facility] [address] [place] [address] Dr. Glenys Holly MCH (RBC) [Entitic mass] 30.1 pg Normal 26.7-34.0 [facility] Comment on above: Performed By: #### M G, CMP, TSH, T7, BNP #### [facility] [address] [place] [address] Dr. Glenys Holly MCHC (RBC) [Mass/Vol] 32.9 g/dL Normal 29.9-35.[address] [facility] Comment on above: Performed By: #### M G, CMP, TSH, T7, BNP #### [facility] [address] [place] [address] Dr. Glenys Holly MCV (RBC) [Entitic vol] 91.6 fL Normal 81.0-99.[address] [facility] Comment on above: Performed By: #### M G, CMP, TSH, T7, BNP #### [facility] [address] [place] [address] Dr. Glenys Holly MONO # 0.8 103/ul Normal 0.3-0.[address] [facility] Comment on above: Performed By: #### M G, CMP, TSH, T7, BNP #### [facility] [address] [place] [address] Dr. Glenys Holly Monocytes/100 WBC (Bld) 5.2 % Normal 1.7-12.[address] [facility] Comment on above: Performed By: #### M G, CMP, TSH, T7, BNP #### [facility] [address] [place] [address] Dr. Glenys Holly NEUT # 14.0 103/ul Critically high 1.4-6.5 [facility] Comment on above: Performed By: #### M G, CMP, TSH, T7, BNP #### [facility] [address] [place] [address] Dr. Glenys Holly Neutrophils/100 WBC (Bld) 87.2 % Critically high 43.0-75.[address] [facility] Comment on above: Performed By: #### M G, CMP, TSH, T7, BNP #### [facility] [address] [place] [address] Dr. Glenys Holly Platelet mean volume (Bld) [Entitic vol] 11.7 fL Normal 9.5-13.[address] [facility] Comment on above: Performed By: #### M G, CMP, TSH, T7, BNP #### [facility] [address] [place] [address] Dr. Glenys Holly PLT 285 103/ul Normal 150-450 [facility] Comment on above: Performed By: #### M G, CMP, TSH, T7, BNP #### [facility] [address] [address] [address] Glenys Holly RBC 4.15 106/ul Critically low 4.20-5.40 [facility] Comment on above: Performed By: #### M G, CMP, TSH, T7, BNP #### [facility] [address] [address] [address] Glenys Holly WBC 16.0 103/ul Critically high 4.0-11.0 [facility] Comment on above: Performed By: #### M G, CMP, TSH, T7, BNP #### [facility] [address] [address] [address] Glenys Holly PROF 14(COMP METB)on 022 Albumin [Mass/Vol] 2.7 g/dL Critically low 3.4-5.0 [facility] Comment on above: Performed By: #### C MP, HSTROPN, BNP #### [facility] [address] [address] [address] Glenys Holly Albumin/Globulin [Mass ratio] 1.0 {ratio} Normal [facility] Comment on above: Performed By: #### C MP, HSTROPN, BNP #### [facility] [address] [address] [address] Glenys Holly ALP [Catalytic activity/Vol] 73 U/L Normal 46-116 [facility] Comment on above: Performed By: #### C MP, HSTROPN, BNP #### [facility] [address] [address] [address] Glenys Holly ALT [Catalytic activity/Vol] 11 U/L Critically low 14-59 [facility] Comment on above: Performed By: #### C MP, HSTROPN, BNP #### [facility] [address] [address] [address] Glenys Holly Anion gap [Moles/Vol] 10.5 mmol/L Normal [facility] Comment on above: Performed By: #### C MP, HSTROPN, BNP #### [facility] [address] [place] [address] Dr. Glenys Holly AST [Catalytic activity/Vol] 21 U/L Normal 15-37 [facility] Comment on above: Performed By: #### C MP, HSTROPN, BNP #### [facility] [address] [place] [address] Dr. Glenys Holly Bilirubin [Mass/Vol] 0.3 mg/dL Normal 0.2-1.0 [facility] Comment on above: Performed By: #### C MP, HSTROPN, BNP #### [facility] [address] [place] [address] Dr. Glenys Holly Calcium [Mass/Vol] 8.6 mg/dL Normal 8.5-10.1 [facility] Comment on above: Performed By: #### C MP, HSTROPN, BNP #### [facility] [address] [place] [address] Dr. Glenys Holly Chloride [Moles/Vol] 106 mmol/L Normal 98-[address] [facility] Comment on above: Performed By: #### C MP, HSTROPN, BNP #### [facility] [address] [place] [address] Dr. Glenys Holly CO2 [Moles/Vol] 29.0 mmol/L Normal 21.0-32.0 [facility] Comment on above: Performed By: #### C MP, HSTROPN, BNP #### [facility] [address] [place] [address] Dr. Glenys Holly Creatinine [Mass/Vol] 0.88 mg/dL Normal 0.55-1.02 [facility] Comment on above: Performed By: #### C MP, HSTROPN, BNP #### [facility] [address] [place] [address] Dr. Glenys Holly EGFR-AF MICRONESIAN >60 Normal >=60 [facility] Comment on above: Performed By: #### C MP, HSTROPN, BNP #### [facility] [address] [address] [address] Glenys Holly EGFR-NON AF MICRONESIAN >60 Normal >=60 [facility] Comment on above: Performed By: #### C MP, HSTROPN, BNP #### [facility] [address] [address] [address] Glenys Holly Globulin (S) [Mass/Vol] 2.6 g/dL Normal [facility] Comment on above: Performed By: #### C MP, HSTROPN, BNP #### [facility] [address] [address] [address] Glenys Holly Glucose [Mass/Vol] 116 mg/dL Critically high 74-106 [facility] Comment on above: Performed By: #### C MP, HSTROPN, BNP #### [facility] [address] [place] [address] Dr. Glenys Holly Potassium [Moles/Vol] 3.5 mmol/L Normal 3.5-5.1 [facility] Comment on above: Performed By: #### C MP, HSTROPN, BNP #### [facility] [address] [address] [address] Glenys Holly Protein [Mass/Vol] 5.3 g/dL Critically low 6.4-8.2 [facility] Comment on above: Performed By: #### C MP, HSTROPN, BNP #### [facility] [address] [address] [address] Glenys Holly Sodium [Moles/Vol] 142 mmol/L Normal 136-145 [facility] Comment on above: Performed By: #### C MP, HSTROPN, BNP #### [facility] [address] [place] [address] Dr. Glenys Holly Urea nitrogen [Mass/Vol] 23.0 mg/dL Critically high 7.0-18.0 [facility] Comment on above: Performed By: #### C MP, HSTROPN, BNP #### [facility] [address] [address] [address] Glenys Holly Urea nitrogen/Creatinine [Mass ratio] 26.1 mg/mg Normal [facility] Comment on above: Performed By: #### C MP, HSTROPN, BNP #### [facility] [address] [place] [address] Dr. Glenys Holly TROPONIN, HIGH SENSITIVITYon 05-08-2022 HSTROP 60.8 pg/mL Critically high 4.0-51.[address] [facility] Comment on above: Result Comment: CUT- OFF POINTS HAVE BEEN ESTABLISHED BASED ON THE FOURTH UNIVERSAL DEFINITIONS OF MYOCARDIAL INFARCTION. THE UPPER REFERENCE LIMIT (URL) OF TROPONIN, DEFINED THE 99TH PERCENTILE OF cTnI DISTRIBUTION IN A REFERENCE POPULATION, HAS BEEN CONFIRMED THE DECISION THRESHOLD FOR [place] DIAGNOSIS. Performed By: #### C MP, HSTROPN, BNP ####[facility] [id number] [address]Dr. Glenys Holly BNPon 05-07-2022 Natriuretic peptide B (Bld) [Mass/Vol] 1476.0 pg/mL Normal <=1,800.0 [facility] Comment on above: Performed By: #### C MP, HSTROPN, BNP ####[facility] [id number] [address]Dr. Glenys Holly CBC AUTO DIFFon 05-07-2022 BASO # 0.0 103/ul Normal 0.0-0.1 [facility] Comment on above: Performed By: #### M G, CMP, TSH, T7, BNP #### [facility] [address] [place] [address] Dr. Glenys Holly Basophils/100 WBC (Bld) 0.1 % Critically low 0.2-2.0 [facility] Comment on above: Performed By: #### M G, CMP, TSH, T7, BNP #### [facility] [address] [place] [address] Dr. Glenys Holly EO # 0.0 103/ul Normal 0.0-0.7 [facility] Comment on above: Performed By: #### M G, CMP, TSH, T7, BNP #### [facility] [address] [place] [address] Dr. Glenys Holly Eosinophils/100 WBC (Bld) 0.0 % Critically low 0.9-7.0 [facility] Comment on above: Performed By: #### M G, CMP, TSH, T7, BNP #### [facility] [address] [place] [address] Dr. Glenys Holly Erythrocyte distribution width (RBC) [Ratio] 16.3 % Critically high 11.0-15.0 [facility] Comment on above: Performed By: #### M G, CMP, TSH, T7, BNP #### [facility] [address] [place] [address] Dr. Glenys Holly Hematocrit (Bld) [Volume fraction] 34.1 % Critically low 36.0-48.0 [facility] Comment on above: Performed By: #### M G, CMP, TSH, T7, BNP #### [facility] [address] [place] [address] Dr. Glenys Holly Hemoglobin (Bld) [Mass/Vol] 11.2 g/dL Critically low 12.0-16.0 [facility] Comment on above: Performed By: #### M G, CMP, TSH, T7, BNP #### [facility] [address] [place] [address] Dr. Glenys Holly IG # 0.22 10e3/ul Critically high 0.00-0.03 [facility] Comment on above: Performed By: #### M G, CMP, TSH, T7, BNP #### [facility] [address] [place] [address] Dr. Glenys Holly IG % 1.0 % Critically high 0.0-0.5 [facility] Comment on above: Performed By: #### M G, CMP, TSH, T7, BNP #### [facility] [address] [place] [address] Dr. Glenys Holly LYMPH # 1.3 103/ul Normal 1.2-3.8 [facility] Comment on above: Performed By: #### M G, CMP, TSH, T7, BNP #### [facility] [address] [place] [address] Dr. Glenys Holly Lymphocytes/100 WBC (Bld) 6.0 % Critically low 20.5-60.[address] [facility] Comment on above: Performed By: #### M G, CMP, TSH, T7, BNP #### [facility] [address] [place] [address] Dr. Glenys Holly MANUAL DIFF REQ NO Normal [facility] Comment on above: Performed By: #### M G, CMP, TSH, T7, BNP #### [facility] [address] [place] [address] Dr. Glenys Holly MCH (RBC) [Entitic mass] 30.7 pg Normal 26.7-34.[address] [facility] Comment on above: Performed By: #### M G, CMP, TSH, T7, BNP #### [facility] [address] [place] [address] Dr. Glenys Holly MCHC (RBC) [Mass/Vol] 32.8 g/dL Normal 29.9-35.[address] [facility] Comment on above: Performed By: #### M G, CMP, TSH, T7, BNP #### [facility] [address] [place] [address] Dr. Glenys Holly MCV (RBC) [Entitic vol] 93.4 fL Normal 81.0-99.[address] [facility] Comment on above: Performed By: #### M G, CMP, TSH, T7, BNP #### [facility] [address] [place] [address] Dr. Glenys Holly MONO # 1.1 103/ul Critically high 0.3-0.[address] [facility] Comment on above: Performed By: #### M G, CMP, TSH, T7, BNP #### [facility] [address] [place] [address] Dr. Glenys Holly Monocytes/100 WBC (Bld) 4.8 % Normal 1.7-12.[address] [facility] Comment on above: Performed By: #### M G, CMP, TSH, T7, BNP #### [facility] [address] [place] [address] Dr. Glenys Holly NEUT # 19.4 103/ul Critically high 1.4-6.5 [facility] Comment on above: Performed By: #### M G, CMP, TSH, T7, BNP #### [facility] [address] [address] [address] Glenys Holly Neutrophils/100 WBC (Bld) 88.1 % Critically high 43.0-75.0 [facility] Comment on above: Performed By: #### M G, CMP, TSH, T7, BNP #### [facility] [address] [address] [address] Glenys Holly Platelet mean volume (Bld) [Entitic vol] 11.6 fL Normal 9.5-13.5 [facility] Comment on above: Performed By: #### M G, CMP, TSH, T7, BNP #### [facility] [address] [address] [address] Glenys Holly PLT 309 103/ul Normal 150-450 [facility] Comment on above: Performed By: #### M G, CMP, TSH, T7, BNP #### [facility] [address] [address] [address] Glenys Holly RBC 3.65 106/ul Critically low 4.20-5.[address] [facility] Comment on above: Performed By: #### M G, CMP, TSH, T7, BNP #### [facility] [address] [address] [address] Glenys Holly WBC 22.0 103/ul Critically high 4.0-11.0 [facility] Comment on above: Performed By: #### M G, CMP, TSH, T7, BNP #### [facility] [address] [address] [address] Glenys Holly PROF 14(COMP METB)on 022 Albumin [Mass/Vol] 2.5 g/dL Critically low 3.4-5.0 [facility] Comment on above: Performed By: #### C MP, HSTROPN, BNP ####[facility] [id number] [address]Dr. Glenys Holly Albumin/Globulin [Mass ratio] 1.0 {ratio} Normal [facility] [facility] Comment on above: Performed By: #### C MP, HSTROPN, BNP ####[facility] [address] [place] [address]Dr. Glenys Holly ALP [Catalytic activity/Vol] 69 U/L Normal 46-116 [facility] Comment on above: Performed By: #### C MP, HSTROPN, BNP ####[facility] [address] [place] [address]Dr. Glenys Holly ALT [Catalytic activity/Vol] 12 U/L Critically low 14-59 [facility] Comment on above: Performed By: #### C MP, HSTROPN, BNP ####[facility] [address] [place], [place] [address]Dr. Glenys Holly Anion gap [Moles/Vol] 10.9 mmol/L Normal [facility] Comment on above: Performed By: #### C MP, HSTROPN, BNP ####[facility] [address]xcwej[address] [place], [place] [address]Dr. Glenys Holly AST [Catalytic activity/Vol] 25 U/L Normal 15-37 [facility] Comment on above: Performed By: #### C MP, HSTROPN, BNP ####[facility] Jrzkpimozj[address] [place], [place] [address]Dr. Glenys Holly Bilirubin [Mass/Vol] 0.1 mg/dL Critically low 0.2-1.0 [facility] Comment on above: Performed By: #### C MP, HSTROPN, BNP ####[facility] Rpst[address] [place], [place] [address]Dr. Glenys Holly Calcium [Mass/Vol] 9.1 mg/dL Normal 8.5-10.1 [facility] Comment on above: Performed By: #### C MP, HSTROPN, BNP ####[facility] [address] [place] [address]Dr. Glenys Holly Chloride [Moles/Vol] 110 mmol/L Critically high 98-107 [facility] Comment on above: Performed By: #### C MP, HSTROPN, BNP ####[facility] [address]jlvcils[address] [place] [address]Dr. Glenys Holly CO2 [Moles/Vol] 24.8 mmol/L Normal 21.0-32.0 [facility] Comment on above: Performed By: #### C MP, HSTROPN, BNP ####[facility] [address]efqcw[address] [place] [address]Dr. Glenys Holly Creatinine [Mass/Vol] 0.87 mg/dL Normal 0.55-1.02 [facility] Comment on above: Performed By: #### C MP, HSTROPN, BNP ####[facility] Senjsim[address] [place], [place] [address]Dr. Glenys Holly EGFR-AF MICRONESIAN >60 Normal >=60 [facility] Comment on above: Performed By: #### C MP, HSTROPN, BNP ####[facility] [address] [place], [place] [address]Dr. Glenys Holly EGFR-NON AF MICRONESIAN >60 Normal >=[address] [facility] Comment on above: Performed By: #### C MP, HSTROPN, BNP ####[facility] [address]xoiib[address] [place], [place] [address]Dr. Glenys Holly Globulin (S) [Mass/Vol] 2.5 g/dL Normal [facility] Comment on above: Performed By: #### C MP, HSTROPN, BNP ####[facility] [address] [place] [address]Dr. Glenys Holly Glucose [Mass/Vol] 128 mg/dL Critically high 74-106 [facility] Comment on above: Performed By: #### C MP, HSTROPN, BNP ####[facility] Mfkepviuur[address] [place], [place] [address]Dr. Glenys Holly Potassium [Moles/Vol] 4.7 mmol/L Normal 3.5-5.1 [facility] Comment on above: Performed By: #### C MP, HSTROPN, BNP ####[facility] N[address]fl[address]rf[address] [place], [place] [address]Dr. Glenys Holly Protein [Mass/Vol] 5.0 g/dL Critically low 6.4-8.2 [facility] Comment on above: Performed By: #### C MP, HSTROPN, BNP ####[facility] [address] [place] [address]Dr. Glenys Holly Sodium [Moles/Vol] 141 mmol/L Normal 136-145 [facility] Comment on above: Performed By: #### C MP, HSTROPN, BNP ####[facility] [address]us[address] [place] [address]Dr. Glenys Holly Urea nitrogen [Mass/Vol] 28.0 mg/dL Critically high 7.0-18.0 [facility] Comment on above: Performed By: #### C MP, HSTROPN, BNP ####[facility] [address] [place] [address]Dr. Glenys Holly Urea nitrogen/Creatinine [Mass ratio] 32.2 mg/mg Normal [facility] Comment on above: Performed By: #### C MP, HSTROPN, BNP ####[facility] [address]ac[address] [place] [address]Dr. Glenys Holly TROPONIN, HIGH SENSITIVITYon 05-07-2022 HSTROP 78.5 pg/mL Critically high 4.0-51.3 [facility] Comment on above: Result Comment: CUT- OFF POINTS HAVE BEEN ESTABLISHED BASED ON THE FOURTH UNIVERSAL DEFINITIONS OF MYOCARDIAL INFARCTION. THE UPPER REFERENCE LIMIT (URL) OF TROPONIN, DEFINED THE 99TH PERCENTILE OF cTnI DISTRIBUTION IN A REFERENCE POPULATION, HAS BEEN CONFIRMED THE DECISION THRESHOLD FOR [place] DIAGNOSIS. Performed By: #### C MP, HSTROPN, BNP ####[facility] [address] [place] [address]Dr. Glenys Holly XR CHEST 2 Von 05-07-2022 [...] SUPA DEAN Date: 2022-05-07 10:[address] [facility] BNPon 05-06-2022 Natriuretic peptide B (Bld) [Mass/Vol] 1143.0 pg/mL Normal <=1,800.[address] [facility] Comment on above: Performed By: #### C MP, BNP ####[facility] [address] [place] [address]Dr. Glenys Holly CBC AUTO DIFFon 05-06-2022 BASO # 0.0 103/ul Normal 0.0-0.[address] [facility] Comment on above: Performed By: #### M G, CMP, TSH, T7, BNP #### [facility] [address] [address] [address] Glenys Holly Basophils/100 WBC (Bld) 0.1 % Critically low 0.2-2.[address] [facility] Comment on above: Performed By: #### M G, CMP, TSH, T7, BNP #### [facility] [address] [address] [address] Glenys Holly EO # 0.0 103/ul Normal 0.0-0.[address] [facility] Comment on above: Performed By: #### M G, CMP, TSH, T7, BNP #### [facility] [address] [address] [address] Glenys Holly Eosinophils/100 WBC (Bld) 0.0 % Critically low 0.9-7.0 [facility] Comment on above: Performed By: #### M G, CMP, TSH, T7, BNP #### [facility] [address] [address] [address] Glenys Holly Erythrocyte distribution width (RBC) [Ratio] 15.8 % Critically high 11.0-15.0 [facility] Comment on above: Performed By: #### M G, CMP, TSH, T7, BNP #### [facility] [address] [place] [address] Dr. Glenys Holly Hematocrit (Bld) [Volume fraction] 36.7 % Normal 36.0-48.0 [facility] Comment on above: Performed By: #### M G, CMP, TSH, T7, BNP #### [facility] [address] [place] [address] Dr. Glenys Holly Hemoglobin (Bld) [Mass/Vol] 12.3 g/dL Normal 12.0-16.0 [facility] Comment on above: Performed By: #### M G, CMP, TSH, T7, BNP #### [facility] [address] [place] [address] Dr. Glenys Holly IG # 0.10 10e3/ul Critically high 0.00-0.03 [facility] Comment on above: Performed By: #### M G, CMP, TSH, T7, BNP #### [facility] [address] [place] [address] Dr. Glenys Holly IG % 0.5 % Normal 0.0-0.5 [facility] Comment on above: Performed By: #### M G, CMP, TSH, T7, BNP #### [facility] [address] [place] [address] Dr. Glenys Holly LYMPH # 1.4 103/ul Normal 1.2-3.8 [facility] Comment on above: Performed By: #### M G, CMP, TSH, T7, BNP #### [facility] [address] [place] [address] Dr. Glenys Holly Lymphocytes/100 WBC (Bld) 7.2 % Critically low 20.5-60.0 [facility] Comment on above: Performed By: #### M G, CMP, TSH, T7, BNP #### [facility] [address] [place] [address] Dr. Glenys Holly MANUAL DIFF REQ NO Normal [facility] Comment on above: Performed By: #### M G, CMP, TSH, T7, BNP #### [facility] [address] [place] [address] Dr. Glenys Holly MCH (RBC) [Entitic mass] 30.9 pg Normal 26.7-34.[address] [facility] Comment on above: Performed By: #### M G, CMP, TSH, T7, BNP #### [facility] [address] [place] [address] Dr. Glenys Holly MCHC (RBC) [Mass/Vol] 33.5 g/dL Normal 29.9-35.[address] [facility] Comment on above: Performed By: #### M G, CMP, TSH, T7, BNP #### [facility] [address] [place] [address] Dr. Glenys Holly MCV (RBC) [Entitic vol] 92.2 fL Normal 81.0-99.[address] [facility] Comment on above: Performed By: #### M G, CMP, TSH, T7, BNP #### [facility] [address] [place] [address] Dr. Glenys Holly MONO # 0.9 103/ul Critically high 0.3-0.[address] [facility] Comment on above: Performed By: #### M G, CMP, TSH, T7, BNP #### [facility] [address] [place] [address] Dr. Glenys Holly Monocytes/100 WBC (Bld) 4.6 % Normal 1.7-12.[address] [facility] Comment on above: Performed By: #### M G, CMP, TSH, T7, BNP #### [facility] [address] [place] [address] Dr. Glenys Holly NEUT # 17.4 103/ul Critically high 1.4-6.5 [facility] Comment on above: Performed By: #### M G, CMP, TSH, T7, BNP #### [facility] [address] [place] [address] Dr. Glenys Holly Neutrophils/100 WBC (Bld) 87.6 % Critically high 43.0-75.0 [facility] Comment on above: Performed By: #### M G, CMP, TSH, T7, BNP #### [facility] [address] [place] [address] Dr. Glenys Holly Platelet mean volume (Bld) [Entitic vol] 11.2 fL Normal 9.5-13.5 [facility] Comment on above: Performed By: #### M G, CMP, TSH, T7, BNP #### [facility] [address] [address] [address] Glenys Holly PLT 310 103/ul Normal 150-450 [facility] Comment on above: Performed By: #### M G, CMP, TSH, T7, BNP #### [facility] [address] [place] [address] Dr. Glenys Holly RBC 3.98 106/ul Critically low 4.20-5.40 [facility] Comment on above: Performed By: #### M G, CMP, TSH, T7, BNP #### [facility] [address] [place] [address] Dr. Glenys Holly WBC 19.8 103/ul Critically high 4.0-11.0 [facility] Comment on above: Performed By: #### M G, CMP, TSH, T7, BNP #### [facility] [address] [place] [address] Dr. Glenys Holly LACTATE/LACTIC ACIDon 2021 Lactate [Moles/Vol] 1.1 mmol/L Normal 0.4-1.9 [facility] Comment on above: Performed By: #### M G, CMP, TSH, T7, BNP #### [facility] [address] [place] [address] Dr. Glenys Holly POINT OF CARE GLUCOSEon 04-12 Glucose [Mass/Vol] 164 mg/dL Critically high 74-106 [facility] Comment on above: Performed By: #### M G, CMP, TSH, T7, BNP #### [facility] [address] [place] [address] Dr. Glenys Holly PROF 14(COMP METB)on 022 Albumin [Mass/Vol] 2.6 g/dL Critically low 3.4-5.0 [facility] Comment on above: Performed By: #### C MP, BNP ####[facility] [address] [place] [address]Dr. Glenys Holly Albumin/Globulin [Mass ratio] 1.0 {ratio} Normal [facility] Comment on above: Performed By: #### C MP, BNP ####[facility] [address] [place] [address]Dr. Glenys Holly ALP [Catalytic activity/Vol] 88 U/L Normal 46-116 [facility] Comment on above: Performed By: #### C MP, BNP ####[facility] [address] [place], [place] [address]Dr. Glenys Holly ALT [Catalytic activity/Vol] 1 U/L Critically low 14-59 [facility] Comment on above: Performed By: #### C MP, BNP ####[facility] Ogbadeeznx[address] [place], [place] [address]Dr. Glenys Holly Anion gap [Moles/Vol] 9.9 mmol/L Normal [facility] Comment on above: Performed By: #### C MP, BNP ####[facility] A[address]cvuaq[address] [place], [place] [address]Dr. Glenys Holly AST [Catalytic activity/Vol] 19 U/L Normal 15-37 [facility] Comment on above: Performed By: #### C MP, BNP ####[facility] [address]hr[address] [place], [place] [address]Dr. Glenys Holly Bilirubin [Mass/Vol] 0.2 mg/dL Normal 0.2-1.0 [facility] Comment on above: Performed By: #### C MP, BNP ####[facility] Trideb[address]uc[address] [place], [place] [address]Dr. Glenys Holly Calcium [Mass/Vol] 8.7 mg/dL Normal 8.5-10.1 [facility] Comment on above: Performed By: #### C MP, BNP ####[facility] Fkmoezzral[address] [place], [place] [address]Dr. Glenys Holly Chloride [Moles/Vol] 108 mmol/L Critically high 98-[address] [facility] Comment on above: Performed By: #### C MP, BNP ####[facility] [address] [place] [address]Dr. Karinaparmjit Holly CO2 [Moles/Vol] 25.2 mmol/L Normal 21.0-32.0 [facility] Comment on above: Performed By: #### C MP, BNP ####[facility] [address]wvx[address] [place], [place] [address]Dr. Glenys Holly Creatinine [Mass/Vol] 0.80 mg/dL Normal 0.55-1.[address] [facility] Comment on above: Performed By: #### C MP, BNP ####[facility] S[address] [place], [place] [address]Dr. Glenys Holly EGFR-AF MICRONESIAN >60 Normal >=60 [facility] Comment on above: Performed By: #### C MP, BNP ####[facility] [address]xxwmdjai[address] [place], [place] [address]Dr. Karinaparmjit Avni EGFR-NON AF MICRONESIAN >60 Normal >=[address] [facility] Comment on above: Performed By: #### C MP, BNP ####[facility] [address]al[address]nbo[address] [place], [place] [address]Dr. Glenys Holly Globulin (S) [Mass/Vol] 2.7 g/dL Normal [facility] Comment on above: Performed By: #### C MP, BNP ####[facility] Lahvidvybg[address] [place], [place] [address]Dr. Glenys Holly Glucose [Mass/Vol] 123 mg/dL Critically high 74-106 [facility] Comment on above: Performed By: #### C MP, BNP ####[facility] Pfaufzsrhy[address] [place], [place] [address]Dr. Glenys Holly Potassium [Moles/Vol] 4.1 mmol/L Normal 3.5-5.[address] [facility] Comment on above: Performed By: #### C MP, BNP ####[facility] Binhmstzgu[address] [place], [place] [address]Dr. Glenys Holly Protein [Mass/Vol] 5.3 g/dL Critically low 6.4-8.[address] [facility] Comment on above: Performed By: #### C MP, BNP ####[facility] [address] [place], [place] [address]Of. Glenys Holly Sodium [Moles/Vol] 139 mmol/L Normal 136-145 [facility] Comment on above: Performed By: #### C MP, BNP ####[facility] [address] [place] [id number]. Glenys Holly Urea nitrogen [Mass/Vol] 22.0 mg/dL Critically high 7.0-18.0 [facility] Comment on above: Performed By: #### C MP, BNP ####[facility] [address] [place] [address]Dr. Glenys Holly Urea nitrogen/Creatinine [Mass ratio] 27.5 mg/mg Normal [facility] Comment on above: Performed By: #### C MP, BNP ####[facility] [address]et[address] [place] [id number]. Glenys Holly T3, TOTAL (TRIIODOTHYRONINE) on 05-06-2022 T3, TOTAL 69 ng/dL Critically low 71-180 [facility] Comment on above: Performed By: #### M G, CMP, TSH, T7, BNP #### [facility] [address] [place], [place] [address] Dr. Glenys Holly TROPONIN, HIGH SENSITIVITYon 05-06-2022 HSTROP 141.0 pg/mL Critically high 4.0-51.3 [facility] Comment on above: Result Comment: CUT- OFF POINTS HAVE BEEN ESTABLISHED BASED ON THE FOURTH UNIVERSAL DEFINITIONS OF MYOCARDIAL INFARCTION. THE UPPER REFERENCE LIMIT (URL) OF TROPONIN, DEFINED THE 99TH PERCENTILE OF cTnI DISTRIBUTION IN A REFERENCE POPULATION, HAS BEEN CONFIRMED THE DECISION THRESHOLD FOR [place] DIAGNOSIS. Performed By: #### M G, CMP, TSH, T7, BNP #### [facility] [address] [place], [place] [address] Dr. Glenys Holly AMYLASEon 05-05-2022 Amylase [Catalytic activity/Vol] 26 U/L Normal 25-[address] [facility] Comment on above: Performed By: #### M G, CMP, TSH, T7, BNP #### [facility] [address] [address] [address] Glenys Holly BNPon 05-05-2022 Natriuretic peptide B (Bld) [Mass/Vol] 811.0 pg/mL Normal <=1,800.[address] [facility] Comment on above: Performed By: #### M G, CMP, TSH, T7, BNP #### [facility] [address] [address] [address] Glenys Holly CARDIAC ADEEL 3-6on 2 CK [Catalytic activity/Vol] 33 U/L Normal 26-[address] [facility] Comment on above: Performed By: #### C MREP ####[facility] [address] [place] [address]Dr. Glenys Holly CK.MB [Mass/Vol] 1.13 ng/mL Normal <=3.60 [facility] Comment on above: Performed By: #### C MREP ####[facility] [address] [place] [address]Dr. Glenys Holly HSTROP 164.3 pg/mL Critically high 4.0-51.3 [facility] Comment on above: Result Comment: CUT- OFF POINTS HAVE BEEN ESTABLISHED BASED ON THE FOURTH UNIVERSAL DEFINITIONS OF MYOCARDIAL INFARCTION. THE UPPER REFERENCE LIMIT (URL) OF TROPONIN, DEFINED THE 99TH PERCENTILE OF cTnI DISTRIBUTION IN A REFERENCE POPULATION, HAS BEEN CONFIRMED THE DECISION THRESHOLD FOR [place] DIAGNOSIS. Performed By: #### C MREP ####[facility] [address] [place] [address]Dr. Glenys Holly CK [Catalytic activity/Vol] 38 U/L Normal 26-[address] [facility] Comment on above: Performed By: #### M G, CMP, TSH, T7, BNP #### [facility] [address] [address] [address] Glenys Holly CK.MB [Mass/Vol] 0.91 ng/mL Normal <=3.60 [facility] Comment on above: Performed By: #### M G, CMP, TSH, T7, BNP #### [facility] [address] [address] [address] Glenys Holly HSTROP 178.2 pg/mL Critically high 4.0-51.3 [facility] Comment on above: Result Comment: CUT- OFF POINTS HAVE BEEN ESTABLISHED BASED ON THE FOURTH UNIVERSAL DEFINITIONS OF MYOCARDIAL INFARCTION. THE UPPER REFERENCE LIMIT (URL) OF TROPONIN, DEFINED THE 99TH PERCENTILE OF cTnI DISTRIBUTION IN A REFERENCE POPULATION, HAS BEEN CONFIRMED THE DECISION THRESHOLD FOR [place] DIAGNOSIS. Performed By: #### M G, CMP, TSH, T7, BNP #### [facility] [address] [place] [address] Dr. Glenys Holly CARDIAC ADEEL ADMITon 022 CK [Catalytic activity/Vol] 29 U/L Normal 26-[address] [facility] Comment on above: Performed By: #### M G, CMP, TSH, T7, BNP #### [facility] [address] [place] [address] Dr. Glenys Holly CK.MB [Mass/Vol] 0.73 ng/mL Normal <=3.60 [facility] Comment on above: Performed By: #### M G, CMP, TSH, T7, BNP #### [facility] [address] [place] [address] Dr. Glenys Holly HSTROP 191.6 pg/mL Critically high 4.0-51.3 [facility] Comment on above: Result Comment: CUT- OFF POINTS HAVE BEEN ESTABLISHED BASED ON THE FOURTH UNIVERSAL DEFINITIONS OF MYOCARDIAL INFARCTION. THE UPPER REFERENCE LIMIT (URL) OF TROPONIN, DEFINED THE 99TH PERCENTILE OF cTnI DISTRIBUTION IN A REFERENCE POPULATION, HAS BEEN CONFIRMED THE DECISION THRESHOLD FOR [place] DIAGNOSIS. Performed By: #### M G, CMP, TSH, T7, BNP #### [facility] [address] [place] [address] Dr. Glenys Holly NEO 79 ng/mL Normal 9-[address] [facility] Comment on above: Performed By: #### M G, CMP, TSH, T7, BNP #### [facility] [address] [place] [address] Dr. Glenys Holly CBC W MANUAL DIFFon 05-05-20 ANISOCYTOSIS 1+ Normal [facility] Comment on above: Performed By: #### M G, CMP, TSH, T7, BNP #### [facility] [address] [place] [address] Dr. Glenys Holly ATYPICAL LYMPH # Normal [facility] Comment on above: Performed By: #### M G, CMP, TSH, T7, BNP #### [facility] [address] [place] [address] Dr. Glenys Holly ATYPICAL LYMPH % Normal [facility] Comment on above: Performed By: #### M G, CMP, TSH, T7, BNP #### [facility] [address] [place] [address] Dr. Glenys Holly BAND # 0.2 103/ul Normal 0.0-0.3 [facility] Comment on above: Performed By: #### M G, CMP, TSH, T7, BNP #### [facility] [address] [place] [address] Dr. Glenys Holly BAND % 1 % Normal 0-5 [facility] Comment on above: Performed By: #### M G, CMP, TSH, T7, BNP #### [facility] [address] [place] [address] Dr. Glenys Holly BASOM # 0.00 103/ul Normal 0.00-0.10 [facility] Comment on above: Performed By: #### M G, CMP, TSH, T7, BNP #### [facility] [address] [place] [address] Dr. Glenys Holly BASOM % 0.0 % Critically low 0.2-2.0 [facility] Comment on above: Performed By: #### M G, CMP, TSH, T7, BNP #### [facility] [address] [place] [address] Dr. Glenys Holly BLAST # Normal [facility] Comment on above: Performed By: #### M G, CMP, TSH, T7, BNP #### [facility] [address] [place] [address] Dr. Glenys Holly BLAST % Normal [facility] Comment on above: Performed By: #### M G, CMP, TSH, T7, BNP #### [facility] [address] [place] [address] Dr. Glenys Holly CORRECTED WBC Normal 4.0-11.0 [facility] Comment on above: Performed By: #### M G, CMP, TSH, T7, BNP #### [facility] [address] [place] [address] Dr. Glenys Holly EOS # 0.00 103/ul Normal 0.00-0.70 [facility] Comment on above: Performed By: #### M G, CMP, TSH, T7, BNP #### [facility] [address] [place] [address] Dr. Glenys Holly EOS% 0.0 % Critically low 0.9-7.0 [facility] Comment on above: Performed By: #### M G, CMP, TSH, T7, BNP #### [facility] [address] [place] [address] Dr. Glenys Holly HCT 41.5 % Normal 36.0-48.0 [facility] Comment on above: Performed By: #### M G, CMP, TSH, T7, BNP #### [facility] [address] [place] [address] Dr. Glenys Holly HGB 14.2 g/dl Normal 12.0-16.0 [facility] Comment on above: Performed By: #### M G, CMP, TSH, T7, BNP #### [facility] [address] [place] [address] Dr. Glenys Holly LYMPHM # 0.96 103/ul Critically low 1.20-3.80 [facility] Comment on above: Performed By: #### M G, CMP, TSH, T7, BNP #### [facility] [address] [place] [address] Dr. Glenys Holly LYMPHM% 6.0 % Critically low 20.5-60.0 [facility] Comment on above: Performed By: #### M G, CMP, TSH, T7, BNP #### [facility] [address] [place] [address] Dr. Glenys Holly MCH 31.0 pg Normal 26.7-34.0 [facility] Comment on above: Performed By: #### M G, CMP, TSH, T7, BNP #### [facility] [address] [place] [address] [address] Glenys Holly MCHC 34.2 g/dl Normal 29.9-35.2 [facility] Comment on above: Performed By: #### M G, CMP, TSH, T7, BNP #### [facility] [address] [place] [address] [address] Glenys Holly MCV 90.6 fL Normal 81.0-99.0 [facility] Comment on above: Performed By: #### M G, CMP, TSH, T7, BNP #### [facility] [address] [place] [address] Dr. Glenys Holly METAMYELOCYTE # Normal [facility] Comment on above: Performed By: #### M G, CMP, TSH, T7, BNP #### [facility] [address] [place] [address] [address] Glenys Holly METAMYELOCYTE % Normal [facility] Comment on above: Performed By: #### M G, CMP, TSH, T7, BNP #### [facility] [address] [place] [address] [address] Glenys Holly MONOM# 2.56 103/ul Critically high 0.30-0.80 [facility] Comment on above: Performed By: #### M G, CMP, TSH, T7, BNP #### [facility] [address] [place] [address] [address] Glenys Holly MONOM% 16.0 % Critically high 1.7-12.0 [facility] Comment on above: Performed By: #### M G, CMP, TSH, T7, BNP #### [facility] [address] [place] [address] [address] Glenys Holly MPV 11.1 fL Normal 9.5-13.5 [facility] Comment on above: Performed By: #### M G, CMP, TSH, T7, BNP #### [facility] [address] [place] [address] [address] Glenys Holly MYELOCYTE # Normal [facility] Comment on above: Performed By: #### M G, CMP, TSH, T7, BNP #### [facility] [address] [place] [address] [address] Glenys Holly MYELOCYTE % Normal [facility] Comment on above: Performed By: #### M G, CMP, TSH, T7, BNP #### [facility] [address] [address] [address] Glenys Holly NRBC Normal [facility] Comment on above: Performed By: #### M G, CMP, TSH, T7, BNP #### [facility] [address] [address] [address] Glenys Holly PLT 352 103/ul Normal 150-450 [facility] Comment on above: Performed By: #### M G, CMP, TSH, T7, BNP #### [facility] [address] [place] [address] Dr. Glenys Holly RBC 4.58 106/ul Normal 4.20-5.40 [facility] Comment on above: Performed By: #### M G, CMP, TSH, T7, BNP #### [facility] [address] [place] [address] Dr. Glenys Holly RDW 15.2 % Critically high 11.0-15.0 [facility] Comment on above: Performed By: #### M G, CMP, TSH, T7, BNP #### [facility] [address] [address] [address] Glenys Holly SEG # 12.32 103/ul Critically high 1.40-6.50 [facility] Comment on above: Performed By: #### M G, CMP, TSH, T7, BNP #### [facility] [address] [place] [address] Dr. Glenys Holly SEG % 77.0 % Critically high 43.0-75.0 [facility] Comment on above: Performed By: #### M G, CMP, TSH, T7, BNP #### [facility] [address] [place] [address] Dr. Glenys Holly WBC 16.0 103/ul Critically high 4.0-11.0 [facility] Comment on above: Performed By: #### M G, CMP, TSH, T7, BNP #### [facility] [id number] Glenys Holly CTA CHEST WO W [...] YULISSA TALBERT Date: 2022-05-05 09:[address] [facility] CULTURE BLOODon 05-05-2022 Microscopic examination of blood, culture Culture Observations: NO GROWTH AT 5 DAYS. Normal [facility] Comment on above: Performed By: #### B [id number] ####[facility] [id number] [place], [place] [address]Ya. Glenys Holly Microscopic examination of blood, culture Culture Observations: NO GROWTH AT [address] [facility] Comment on above: Performed By: #### B [id number] ####[facility] [id number] [place], [place] [address]Ne. Glenys Holly CULTURE URINEon 05-05-2022 CULTURE URINE Culture Observations : LIGHT GROWTH OF MIXED GENITAL NIDA. NO POTENTIAL PATHOGENS SEEN. Normal [facility] Comment on above: Performed By: #### U RCX ####[facility] [id number] [place], [place] [address]Tv. Glenys Holly Covid-19 PCR (CVDTBH)on 04-12 SARS-CoV-2 (COVID-19) RNA KINZA+probe Ql (Unsp spec) Not detected Normal NOT DETECTED [facility] Comment on above: Result Comment: When [...] for this test is supported by the [place] of Health and Human Service's declaration that [...] used). Performed By: #### C VDTBH #### [facility] [address] [place], [place] [address] Dr. Glenys Holly ECHOCARDIO M/2D COMPLETEon 1 07-05-2021 ECHOCARDIO M/2D COMPLETE Patient: JUDITH KHAN Exam Date: 05/05/2022 : 1945 Gender:F Ordering : DR RODRICK SAMS . Admission #: [id number] Family : Order #: [id number] CLICK HERE TO VIEW EXAM ECHOCARDIOGRAM REPORT [...] M.D. on 05/10/2022 at 13:[address] [facility] INFLUENZA A AND B AGon 05-05 INFLUANEGH SEE BELOW Normal [facility] Comment on above: Result Comment: Nega tive for Flu A protein angiten. Infection due to Flu A cannot be ruled out. Flu A angiten in the sample may be below the detection limit of the test. Performed By: #### M G, CMP, TSH, T7, BNP #### [facility] [address] [place] [address] Dr. Glenys Holly INFL[facility]AN [facility] SEE BELOW Normal [facility] Comment on above: Result Comment: Nega tive for Flu B protein antigen. Infection due to Flu B cannot be ruled out. Flu B antigen in the sample may be below the detection limit of the test. Performed By: #### M G, CMP, TSH, T7, BNP #### [facility] [address] [place] [address] Dr. Glenys Holly INFLUENZA A AG Negative Normal NEGATIVE SEE COMMENT [facility] Comment on above: Performed By: #### M G, CMP, TSH, T7, BNP #### [facility] [address] [place] [address] Dr. Glenys Holly INFLUENZA B AG Negative Normal NEGATIVE SEE COMMENT [facility] Comment on above: Performed By: #### M G, CMP, TSH, T7, BNP #### [facility] [address] [place] [address] Dr. Glenys Holly INTERNAL CONTROLS Within Normal Limits Normal Wi thin Normal Limits [facility] Comment on above: Performed By: #### M G, CMP, TSH, T7, BNP #### [facility] [address] [place] [address] Dr. Glenys Holly LACTATE/LACTIC ACIDon 2021 Lactate [Moles/Vol] 5.2 mmol/L Critically high 0.4-1.[address] [facility] Comment on above: Performed By: #### M G, CMP, TSH, T7, BNP #### [facility] [address] [place] [address] Dr. Glenys Holly Lactate [Moles/Vol] 4.8 mmol/L Critically high 0.4-1.9 [facility] Comment on above: Performed By: #### M G, CMP, TSH, T7, BNP #### [facility] [address] [place] [address] Dr. Glenys Holly LIPASEon 05-05-2022 Lipase [Catalytic activity/Vol] 64.0 U/L Critically low 73.0-393.0 [facility] Comment on above: Performed By: #### M G, CMP, TSH, T7, BNP #### [facility] [address] [place] [address] Dr. Glenys Holly PROF CHEM 8 (BAS METB)on Anion gap [Moles/Vol] 12.6 mmol/L Normal [facility] Comment on above: Performed By: #### M G, CMP, TSH, T7, BNP #### [facility] [address] [place] [address] Dr. Glenys Holly Calcium [Mass/Vol] 9.6 mg/dL Normal 8.5-10.1 [facility] Comment on above: Performed By: #### M G, CMP, TSH, T7, BNP #### [facility] [address] [place] [address] Dr. Glenys Holly Chloride [Moles/Vol] 102 mmol/L Normal 98-107 [facility] Comment on above: Performed By: #### M G, CMP, TSH, T7, BNP #### [facility] [address] [place] [address] Dr. Glenys Holly CO2 [Moles/Vol] 26.3 mmol/L Normal 21.0-32.0 [facility] Comment on above: Performed By: #### M G, CMP, TSH, T7, BNP #### [facility] [address] [place] [address] Dr. Glenys Holly Creatinine [Mass/Vol] 1.00 mg/dL Normal 0.55-1.02 [facility] Comment on above: Performed By: #### M G, CMP, TSH, T7, BNP #### [facility] [address] [address] [address] Glenys Holly EGFR-AF MICRONESIAN >60 Normal >=60 [facility] Comment on above: Performed By: #### M G, CMP, TSH, T7, BNP #### [facility] [address] [address] [address] Glenys Holly EGFR-NON AF MICRONESIAN 54 mL/min/1.73m2 Critically low >=60 [facility] Comment on above: Performed By: #### M G, CMP, TSH, T7, BNP #### [facility] [address] [address] [address] Glenys Holly Glucose [Mass/Vol] 128 mg/dL Critically high 74-106 [facility] Comment on above: Performed By: #### M G, CMP, TSH, T7, BNP #### [facility] [address] [place] [address] Dr. Glenys Holly Potassium [Moles/Vol] 2.9 mmol/L Critically low 3.5-5.1 [facility] Comment on above: Performed By: #### M G, CMP, TSH, T7, BNP #### [facility] [address] [address] [address] Glenys Holly Sodium [Moles/Vol] 138 mmol/L Normal 136-145 [facility] Comment on above: Performed By: #### M G, CMP, TSH, T7, BNP #### [facility] [address] [address] [address] Glenys Holly Urea nitrogen [Mass/Vol] 20.0 mg/dL Critically high 7.0-18.0 [facility] Comment on above: Performed By: #### M G, CMP, TSH, T7, BNP #### [facility] [address] [address] [address] Glenys Holly Urea nitrogen/Creatinine [Mass ratio] 20.0 mg/mg Normal [facility] Comment on above: Performed By: #### M G, CMP, TSH, T7, BNP #### [facility] [address] [address] [address] Glenys Holly T4on 05-05-2022 T4 [Mass/Vol] 7.40 ug/dL Normal 4.80-13.90 [facility] Comment on above: Performed By: #### M G, CMP, TSH, T7, BNP #### [facility] [address] [place] [address] Dr. Glenys Holly TSHon 05-05-2022 TSH 0.198 uIU/mL Critically low 0.358-3.740 [facility] Comment on above: Performed By: #### M G, CMP, TSH, T7, BNP #### [facility] [address] [place] [address] Dr. Glenys Holly UA RANDOM W/MICROSCOPICon BACTERIA NONE SEEN Normal NONE SEEN [facility] Comment on above: Performed By: #### M G, CMP, TSH, T7, BNP #### [facility] [address] [place] [address] Dr. Glenys Holly Bilirubin Ql (U) Negative Normal NEGATIVE [facility] Comment on above: Performed By: #### M G, CMP, TSH, T7, BNP #### [facility] [address] [place] [address] Dr. Glenys Holly CAST NONE SEEN Normal NONE SEEN [facility] Comment on above: Performed By: #### M G, CMP, TSH, T7, BNP #### [facility] [address] [place] [address] Dr. Glenys Holly Clarity (U) SL CLOUDY Abnormal CLEAR [facility] Comment on above: Performed By: #### M G, CMP, TSH, T7, BNP #### [facility] [address] [place] [address] Dr. Glenys Holly Color (U) LT. YELLOW Normal YELLOW [facility] Comment on above: Performed By: #### M G, CMP, TSH, T7, BNP #### [facility] [address] [place] [address] Dr. Glenys Holly Crystals LM Nom (Urine sed) NONE SEEN Normal NONE SEEN [facility] Comment on above: Performed By: #### M G, CMP, TSH, T7, BNP #### [facility] [address] [address] [address] Glenys Holly Epithelial cells LM Ql (Urine sed) FEW Abnormal NONE SEEN /RARE [facility] Comment on above: Performed By: #### M G, CMP, TSH, T7, BNP #### [facility] [address] [address] [address] Glenys Holly Glucose Ql (U) Negative Normal NEGATIVE [facility] Comment on above: Performed By: #### M G, CMP, TSH, T7, BNP #### [facility] [address] [address] [address] Glenys Holly Hemoglobin Ql (U) MODERATE Abnormal NEGATIVE [facility] Comment on above: Performed By: #### M G, CMP, TSH, T7, BNP #### [facility] [address] [place] [address] Dr. Glenys Holly Ketones Ql (U) Negative Normal NEGATIVE [facility] Comment on above: Performed By: #### M G, CMP, TSH, T7, BNP #### [facility] [address] [place] [address] Dr. Glenys Holly LEUKOCYTES Negative Normal NEGATIVE [facility] Comment on above: Performed By: #### M G, CMP, TSH, T7, BNP #### [facility] [address] [address] [address] Glenys Holly MUCOUS NONE SEEN Normal NONE SEEN [facility] Comment on above: Performed By: #### M G, CMP, TSH, T7, BNP #### [facility] [address] [address] [address] Glenys Holly Nitrite Ql (U) Negative Normal NEGATIVE [facility] Comment on above: Performed By: #### M G, CMP, TSH, T7, BNP #### [facility] [address] [address] [address] Glenys Holly pH (U) 6.0 [pH] Normal 5-[address] [facility] Comment on above: Performed By: #### M G, CMP, TSH, T7, BNP #### [facility] [address] [place] [address] Dr. Glenys Holly RBC 2-5 Abnormal 0-[address] [facility] Comment on above: Performed By: #### M G, CMP, TSH, T7, BNP #### [facility] [address] [address] [address] Glenys Holly SPEC GRAVITY 1.010 Normal 1.005-<=1.0 [facility] Comment on above: Performed By: #### M G, CMP, TSH, T7, BNP #### [facility] [address] [address] [address] Glenys Holly UA PROTEIN TRACE Normal NEGATIVE/ TRACE [facility] Comment on above: Performed By: #### M G, CMP, TSH, T7, BNP #### [facility] [address] [address] [address] Glenys Holly Urobilinogen Qn (U) 0.2 {Phoebe'U}/dL Normal 0.2 - 1. 0 [facility] Comment on above: Performed By: #### M G, CMP, TSH, T7, BNP #### [facility] [address] [address] [address] Glenys Holly WBC NONE SEEN Normal NONE SEEN [facility] Comment on above: Performed By: #### M G, CMP, TSH, T7, BNP #### [facility] [address] [address] [address] Glenys Holly XR CHEST 1 Von [...] SUPA LOZANO Date: 2022-05-05 07:[address] [facility] CULTURE URINEon 03-30-2022 CULTURE URINE Culture Observations : GREATER THAN 4 ORGANISMS PRESENT. PLEASE RESUBMIT CLEAN CATCH MID-STREAM URINE IF CLINICALLY INDICATED. Normal [facility] Comment on above: Performed By: #### U RCX ####[facility] [id number] [address]Dr[address] Glenys Holly CBC W MANUAL DIFFon 03-29-20 ATYPICAL LYMPH # Normal [facility] Comment on above: Performed By: #### M G, CMP, TSH, T7, BNP #### [facility] [address] [address] [address] Glenys Holly ATYPICAL LYMPH % Normal [facility] Comment on above: Performed By: #### M G, CMP, TSH, T7, BNP #### [facility] [address] [address] [address] Glenys Holly BAND # Normal 0.0-0.3 [facility] Comment on above: Performed By: #### M G, CMP, TSH, T7, BNP #### [facility] [address] [address] [address] Glenys Holly BAND % Normal 0-5 [facility] Comment on above: Performed By: #### M G, CMP, TSH, T7, BNP #### [facility] [address] [address] [address] Glenys Holly BASOM # 0.20 103/ul Critically high 0.00-0.10 [facility] Comment on above: Performed By: #### M G, CMP, TSH, T7, BNP #### [facility] [address] [address] [address] Glenys Holly BASOM % 1.0 % Normal 0.2-2.0 [facility] Comment on above: Performed By: #### M G, CMP, TSH, T7, BNP #### [facility] [address] [address] [address] Glenys Holly BLAST # Normal [facility] Comment on above: Performed By: #### M G, CMP, TSH, T7, BNP #### [facility] [address] [address] [address] Glenys Holly BLAST % Normal [facility] Comment on above: Performed By: #### M G, CMP, TSH, T7, BNP #### [facility] [address] [address] [address] Glenys Holly CORRECTED WBC Normal 4.0-11.0 [facility] Comment on above: Performed By: #### M G, CMP, TSH, T7, BNP #### [facility] [address] [address] [address] Glenys Holly EOS # 0.00 103/ul Normal 0.00-0.70 [facility] Comment on above: Performed By: #### M G, CMP, TSH, T7, BNP #### [facility] [address] [address] [address] Glenys Holly EOS% 0.0 % Critically low 0.9-7.0 [facility] Comment on above: Performed By: #### M G, CMP, TSH, T7, BNP #### [facility] [address] [place] [address] Dr. Glenys Holly HCT 45.0 % Normal 36.0-48.0 [facility] Comment on above: Performed By: #### M G, CMP, TSH, T7, BNP #### [facility] [address] [address] [address] Glenys Holly HGB 15.2 g/dl Normal 12.0-16.0 [facility] Comment on above: Performed By: #### M G, CMP, TSH, T7, BNP #### [facility] [address] [address] [address] Glenys Holly LYMPHM # 2.80 103/ul Normal 1.20-3.80 [facility] Comment on above: Performed By: #### M G, CMP, TSH, T7, BNP #### [facility] [address] [address] [address] Glenys Holly LYMPHM% 14.0 % Critically low 20.5-60.0 [facility] Comment on above: Performed By: #### M G, CMP, TSH, T7, BNP #### [facility] [address] [address] [address] Glenys Holly MCH 30.6 pg Normal 26.7-34.0 [facility] Comment on above: Performed By: #### M G, CMP, TSH, T7, BNP #### [facility] [address] [address] [address] Glenys Holly MCHC 33.8 g/dl Normal 29.9-35.2 [facility] Comment on above: Performed By: #### M G, CMP, TSH, T7, BNP #### [facility] [address] [address] [address] Glenys Holly MCV 90.7 fL Normal 81.0-99.0 [facility] Comment on above: Performed By: #### M G, CMP, TSH, T7, BNP #### [facility] [address] [place] [address] Dr. Glenys Holly METAMYELOCYTE # Normal [facility] Comment on above: Performed By: #### M G, CMP, TSH, T7, BNP #### [facility] [address] [place] [address] Dr. Glenys Holly METAMYELOCYTE % Normal [facility] Comment on above: Performed By: #### M G, CMP, TSH, T7, BNP #### [facility] [address] [address] [address] Glenys Holly MONOM# 2.40 103/ul Critically high 0.30-0.80 [facility] Comment on above: Performed By: #### M G, CMP, TSH, T7, BNP #### [facility] [address] [place] [address] Dr. Glenys Holly MONOM% 12.0 % Normal 1.7-12.0 [facility] Comment on above: Performed By: #### M G, CMP, TSH, T7, BNP #### [facility] [address] [place] [address] Dr. Glenys Holly MPV 11.5 fL Normal 9.5-13.5 [facility] Comment on above: Performed By: #### M G, CMP, TSH, T7, BNP #### [facility] [address] [address] [address] Glenys Holly MYELOCYTE # Normal [facility] Comment on above: Performed By: #### M G, CMP, TSH, T7, BNP #### [facility] [address] [address] [address] Glenys Holly MYELOCYTE % Normal [facility] Comment on above: Performed By: #### M G, CMP, TSH, T7, BNP #### [facility] [address] [address] [address] Glenys Holly NRBC Normal [facility] Comment on above: Performed By: #### M G, CMP, TSH, T7, BNP #### [facility] [address] [address] [address] Glenys Holly PLT 323 103/ul Normal 150-450 [facility] Comment on above: Performed By: #### M G, CMP, TSH, T7, BNP #### [facility] [address] [address] [address] Glenys Holly RBC 4.96 106/ul Normal 4.20-5.40 [facility] Comment on above: Performed By: #### M G, CMP, TSH, T7, BNP #### [facility] [address] [address] [address] Glenys Holly RDW 14.4 % Normal 11.0-15.0 [facility] Comment on above: Performed By: #### M G, CMP, TSH, T7, BNP #### [facility] [address] [address] [address] Glenys Holly SEG # 14.60 103/ul Critically high 1.40-6.50 [facility] Comment on above: Performed By: #### M G, CMP, TSH, T7, BNP #### [facility] [address] [address] [address] Glenys Holly SEG % 73.0 % Normal 43.0-75.0 [facility] Comment on above: Performed By: #### M G, CMP, TSH, T7, BNP #### [facility] [address] [address] [address] Glenys Holly WBC 20.0 103/ul Critically high 4.0-11.0 [facility] Comment on above: Performed By: #### M G, CMP, TSH, T7, BNP #### [facility] [id number] Glen[address] Holly CT ABD/PELV W CONon [...] RAMIRO SPENCER Date: 2022-03-29 11:[address] [facility] ER URINE PROFILEon 2 Bilirubin Ql (U) Negative Normal NEGATIVE [facility] Comment on above: Performed By: #### M G, CMP, TSH, T7, BNP #### [facility] [address] [place], [place] [address] Dr. Glenys Holly Clarity (U) CLEAR Normal CLEAR [facility] Comment on above: Performed By: #### M G, CMP, TSH, T7, BNP #### [facility] [address] [address] [address] Glenys Holly Color (U) LT. YELLOW Normal YELLOW [facility] Comment on above: Performed By: #### M G, CMP, TSH, T7, BNP #### [facility] [address] [address] [address] Glenys CASILLASAHFranky A micrscopic examina tion will be performed if indicated. Normal [facility] Comment on above: Performed By: #### M G, CMP, TSH, T7, BNP #### [facility] [address] [address] [address] Glenys Holly Glucose Ql (U) Negative Normal NEGATIVE [facility] Comment on above: Performed By: #### M G, CMP, TSH, T7, BNP #### [facility] [address] [address] [address] Glenys Holly Hemoglobin Ql (U) MODERATE Abnormal NEGATIVE [facility] Comment on above: Performed By: #### M G, CMP, TSH, T7, BNP #### [facility] [address] [address] [address] Glenys Holly Ketones Ql (U) 15 mg/dl Abnormal NEGATIVE [facility] Comment on above: Performed By: #### M G, CMP, TSH, T7, BNP #### [facility] [address] [address] [address] Glenys Holly LEUKOCYTES LARGE Abnormal NEGATIVE [facility] Comment on above: Performed By: #### M G, CMP, TSH, T7, BNP #### [facility] [address] [address] [address] Glenys Holly Nitrite Ql (U) Negative Normal NEGATIVE [facility] Comment on above: Performed By: #### M G, CMP, TSH, T7, BNP #### [facility] [address] [address] [address] Glenys Holly pH (U) 6.5 [pH] Normal 5-9 [facility] Comment on above: Performed By: #### M G, CMP, TSH, T7, BNP #### [facility] [address] [place] [address] Dr. Glenys Holly SPEC GRAVITY 1.015 Normal 1.005-<=1.0 25 [facility] Comment on above: Performed By: #### M G, CMP, TSH, T7, BNP #### [facility] [address] [place] [address] Dr. Glenys Holly UA PROTEIN TRACE Normal NEGATIVE/ TRACE [facility] Comment on above: Performed By: #### M G, CMP, TSH, T7, BNP #### [facility] [address] [place] [address] Dr. Glenys Holly UR MICRO IND INDICATED Normal [facility] Comment on above: Performed By: #### M G, CMP, TSH, T7, BNP #### [facility] [address] [place] [address] Dr. Glenys Holly Urobilinogen Qn (U) 0.2 {Pohebe'U}/dL Normal 0.2 - 1. 0 [facility] Comment on above: Performed By: #### M G, CMP, TSH, T7, BNP #### [facility] [address] [place] [address] Dr. Glenys Holly LIPASEon 03-29-2022 Lipase [Catalytic activity/Vol] 62.0 U/L Critically low 73.0-393.0 [facility] Comment on above: Performed By: #### M G, CMP, TSH, T7, BNP #### [facility] [address] [place] [address] Dr. Glenys Holly PROF 14(COMP METB)on 022 Albumin [Mass/Vol] 3.7 g/dL Normal 3.4-5.0 [facility] Comment on above: Performed By: #### M G, CMP, TSH, T7, BNP #### [facility] [address] [place] [address] Dr. Glenys Holly Albumin/Globulin [Mass ratio] 1.2 {ratio} Normal [facility] Comment on above: Performed By: #### M G, CMP, TSH, T7, BNP #### [facility] [address] [address] [address] Glenys Holly ALP [Catalytic activity/Vol] 106 U/L Normal 46-116 [facility] Comment on above: Performed By: #### M G, CMP, TSH, T7, BNP #### [facility] [address] [place] [address] Dr. Glenys Holly ALT [Catalytic activity/Vol] 17 U/L Normal 14-59 [facility] Comment on above: Performed By: #### M G, CMP, TSH, T7, BNP #### [facility] [address] [place] [address] Dr. Glenys Holly Anion gap [Moles/Vol] 11.8 mmol/L Normal [facility] Comment on above: Performed By: #### M G, CMP, TSH, T7, BNP #### [facility] [address] [place] [address] Dr. Glenys Holly AST [Catalytic activity/Vol] 19 U/L Normal 15-37 [facility] Comment on above: Performed By: #### M G, CMP, TSH, T7, BNP #### [facility] [address] [place] [address] Dr. Glenys Holly Bilirubin [Mass/Vol] 0.8 mg/dL Normal 0.2-1.0 [facility] Comment on above: Performed By: #### M G, CMP, TSH, T7, BNP #### [facility] [address] [place] [address] Dr. Glenys Holly Calcium [Mass/Vol] 9.8 mg/dL Normal 8.5-10.1 [facility] Comment on above: Performed By: #### M G, CMP, TSH, T7, BNP #### [facility] [address] [place] [address] Dr. Glenys Holly Chloride [Moles/Vol] 101 mmol/L Normal 98-107 [facility] Comment on above: Performed By: #### M G, CMP, TSH, T7, BNP #### [facility] [address] [place] [address] Dr. Glenys Holly CO2 [Moles/Vol] 26.2 mmol/L Normal 21.0-32.0 [facility] Comment on above: Performed By: #### M G, CMP, TSH, T7, BNP #### [facility] [address] [address] [address] Glenys Holly Creatinine [Mass/Vol] 0.76 mg/dL Normal 0.55-1.[address] [facility] Comment on above: Performed By: #### M G, CMP, TSH, T7, BNP #### [facility] [address] [address] [address] Glenys Holly EGFR-AF MICRONESIAN >60 Normal >=60 [facility] Comment on above: Performed By: #### M G, CMP, TSH, T7, BNP #### [facility] [address] [address] [address] Glenys Holly EGFR-NON AF MICRONESIAN >60 Normal >=[address] [facility] Comment on above: Performed By: #### M G, CMP, TSH, T7, BNP #### [facility] [address] [address] [address] Glenys Holly Globulin (S) [Mass/Vol] 3.2 g/dL Normal [facility] Comment on above: Performed By: #### M G, CMP, TSH, T7, BNP #### [facility] [address] [address] [address] Glenys Holly Glucose [Mass/Vol] 103 mg/dL Normal 74-106 [facility] Comment on above: Performed By: #### M G, CMP, TSH, T7, BNP #### [facility] [address] [address] [address] Glenys Holly Potassium [Moles/Vol] 3.0 mmol/L Critically low 3.5-5.[address] [facility] Comment on above: Performed By: #### M G, CMP, TSH, T7, BNP #### [facility] [address] [address] [address] Glenys Holly Protein [Mass/Vol] 6.9 g/dL Normal 6.4-8.2 [facility] Comment on above: Performed By: #### M G, CMP, TSH, T7, BNP #### [facility] [address] [address] [address] Glenys Holly Sodium [Moles/Vol] 136 mmol/L Normal 136-145 [facility] Comment on above: Performed By: #### M G, CMP, TSH, T7, BNP #### [facility] [address] [address] [address] Glenys Holly Urea nitrogen [Mass/Vol] 16.0 mg/dL Normal 7.0-18.0 [facility] Comment on above: Performed By: #### M G, CMP, TSH, T7, BNP #### [facility] [address] [place] [address] Dr. Glenys Holly Urea nitrogen/Creatinine [Mass ratio] 21.1 mg/mg Normal [facility] Comment on above: Performed By: #### M G, CMP, TSH, T7, BNP #### [facility] [address] [place] [address] Dr. Glenys Holly TROPONIN, HIGH SENSITIVITYon 03-29-2022 HSTROP 30.7 pg/mL Normal 4.0-51.3 [facility] Comment on above: Result Comment: CUT- OFF POINTS HAVE BEEN ESTABLISHED BASED ON THE FOURTH UNIVERSAL DEFINITIONS OF MYOCARDIAL INFARCTION. THE UPPER REFERENCE LIMIT (URL) OF TROPONIN, DEFINED THE 99TH PERCENTILE OF cTnI DISTRIBUTION IN A REFERENCE POPULATION, HAS BEEN CONFIRMED THE DECISION THRESHOLD FOR [place] DIAGNOSIS. Performed By: #### M G, CMP, TSH, T7, BNP #### [facility] [address] [place] [address] Dr. Glenys Holly URINE MICROSCOPIC ONLYon BACTERIA MODERATE Abnormal NONE SEEN [facility] Comment on above: Performed By: #### M G, CMP, TSH, T7, BNP #### [facility] [address] [place] [address] Dr. Glenys Holly Bacteria identified Cx Nom (U) INDICATED Normal [facility] Comment on above: Performed By: #### M G, CMP, TSH, T7, BNP #### [facility] [address] [place] [address] Dr. Glenys Holly CA OX CRYSTALS MODERATE Normal [facility] Comment on above: Performed By: #### M G, CMP, TSH, T7, BNP #### [facility] [address] [address] [address] Glenys Holly CAST NONE SEEN Normal NONE SEEN [facility] Comment on above: Performed By: #### M G, CMP, TSH, T7, BNP #### [facility] [address] [address] [address] Glenys Holly Crystals LM Nom (Urine sed) SEEN Abnormal NONE SEEN [facility] Comment on above: Performed By: #### M G, CMP, TSH, T7, BNP #### [facility] [address] [address] [address] Glenys Holly Epithelial cells LM Ql (Urine sed) FEW Abnormal NONE SEEN /RARE [facility] Comment on above: Performed By: #### M G, CMP, TSH, T7, BNP #### [facility] [address] [address] [address] Glenys Holly MUCOUS NONE SEEN Normal NONE SEEN [facility] Comment on above: Performed By: #### M G, CMP, TSH, T7, BNP #### [facility] [address] [address] [address] Glenys Holly RBC 5-10 Abnormal 0-[address] [facility] Comment on above: Performed By: #### M G, CMP, TSH, T7, BNP #### [facility] [address] [address] [address] Glenys Holly WBC 20-50 Abnormal NONE SEEN [facility] Comment on above: Performed By: #### M G, CMP, TSH, T7, BNP #### [facility] [address] [address] [address] Glenys Holly XR ABD FLAT UP_PA [...] RAMIRO SPENCER Date: 2022-03-29 09:[address] [facility] CT HEAD WO CONon 12-27-2021 CT [...] RAMIRO SPENCER Date: 2021-12-27 12:[address] [facility] Discharge Summaryon 08-18-19 18 Discharge Summary MR[id number] Admitted: [...] intraperitoneal bleeding. [facility] to [facility] [...] 4-6 hours as needed for pain and Nfenmm777 mg b.i.d. for opioid related constipation.Electronicall y Signed by:Supa May M.D. 08/29/2017 12:01 P Supa May M.D. I personally saw this patient on the day of the encounter, performed thekey portion(s) of the service and participated in the management andconfirm the resident's documentation. Please note there may be anadditional personal documentation from me. Date Dict: 08/16/2017/10:11 A/Josh Palemr, MDDate Trans: 08/17/2017 06:00 A/mmoDN_[id number] Normal [facility] BASIC METABOLIC PANELon 03-0 Calcium 8.8 mg/dL Normal 8.6-10.3 [facility] Comment on above: Order Comment: No: D o not add to previous draw Performed By: #### 0 0121, 26381 ####[facility] [place] [address], [facility] Chloride 97 mmol/L Low 98-107 [facility] Comment on above: Order Comment: No: D o not add to previous draw Performed By: #### 0 0121, 06310 ####[facility] [place] [address], [facility] CO2 33 mmol/L High 21-31 [facility] Comment on above: Order Comment: No: D o not add to previous draw Performed By: #### 0 0121, 09468 ####[facility] [place] [address], [facility] Creatinine 0.75 mg/dL Normal 0.60-1.20 [facility] Comment on above: Order Comment: No: D o not add to previous draw Performed By: #### 0 0121, 04754 ####[facility] [place] [address], [facility] eGFR (black) mL/min/{1.73_m2} Normal >60 [facility] Comment on above: Order Comment: No: D o not add to previous draw Result Comment: Calc ulation may not be valid for patients over 70 years Performed By: #### 0 0121, 20735 ####[facility] eGFR (non-black) mL/min/{1.73_m2} Normal >60 Th e [facility] Comment on above: Order Comment: No: D o not add to previous draw Result Comment: Calc ulation may not be valid for patients over 70 years Performed By: #### 0 0121, 39546 ####[facility] [place] [address], [facility] Glucose mass conc 91 mg/dL Normal 70-100 [facility] Comment on above: Order Comment: No: D o not add to previous draw Performed By: #### 0 0121, 75813 ####[facility] [place] [address], [facility] Potassium molar conc 2.8 mmol/L Low 3.5-5.1 [facility] Comment on above: Order Comment: No: D o not add to previous draw Performed By: #### 0 0121, 99936 ####[facility] [place] [address], [facility] Sodium 137 mmol/L Normal 136-145 [facility] Comment on above: Order Comment: No: D o not add to previous draw Performed By: #### 0 0121, 67630 ####[facility] [place] [address], [facility] Urea nitrogen 13 mg/dL Normal 7-25 [facility] Comment on above: Order Comment: No: D o not add to previous draw Performed By: #### 0 0121, 30298 ####[facility] [facility].[address] CBC COMPLETE BLOOD COUNTon 0 08-15-2017 Erythrocyte distribution width Auto Ratio (RBC) 14.6 % Normal 11.5-15.0 [facility] Comment on above: Order Comment: No: D o not add to previous draw Performed By: #### 5 610, 71004 ####[facility] [facility] Erythrocytes (RBC) 4.05 10*6/uL Normal 3.80-5.00 [facility] Comment on above: Order Comment: No: D o not add to previous draw Performed By: #### 5 610, 40120 ####[facility] [facility] Erythrocytes (RBC) 0 % Normal 0-0 [facility] Comment on above: Order Comment: No: D o not add to previous draw Performed By: #### 5 610, 31557 ####[facility] [facility].[address] Hematocrit (HCT) 36.8 % Normal 36.0-45.0 [facility] Comment on above: Order Comment: No: D o not add to previous draw Performed By: #### 5 610, 68430 ####[facility] Hemoglobin mass conc (Bld) 12.3 g/dL Normal 12.0-15.0 [facility] Comment on above: Order Comment: No: D o not add to previous draw Performed By: #### 5 610, 12862 ####[place] [address] MCH 30.4 pg Normal 27.0-33.0 [facility] Comment on above: Order Comment: No: D o not add to previous draw Performed By: #### 5 6101, 08799 ####[address] MCHC mass conc (RBC) 33.4 g/dL Normal 32.0-35.0 [facility] Comment on above: Order Comment: No: D o not add to previous draw Performed By: #### 5 6101, 80471 ####[address] MCV 90.9 fL Normal 82.0-98.0 [facility] Comment on above: Order Comment: No: D o not add to previous draw Performed By: #### 5 6101, 32833 ####[address] PLAT CNT 196 10*3/uL Normal 150-400 [facility] Comment on above: Order Comment: No: D o not add to previous draw Performed By: #### 5 6101, 56975 ####[address] WBC (Leukocytes) 11.0 10*3/uL High 4.0-10.6 [facility] Comment on above: Order Comment: No: D o not add to previous draw Performed By: #### 5 6101, 25940 ####[address] PORTABLE CHEST 1 VIEWon 03-0 PORTABLE CHEST 1 VIEW [facility] [address] [place] [address] Sera ent Name: JUDITH KHAN : 1945Sex: FAge: Race: WhiteMRN: [id number]. Location: [id number] Status: IVisit #: [id number] Date: 08/15/2017 7:05:00 AMCompleted Date: 08/15/2017 07:54 AMRequesting Provider: JOSH PALMER Attending Provider: ALEXANDER OLSON Report Copy To: Signs & Symptoms: O2 DesaturationHistory: Patient history not availableComments: R/O EffusionExam: PORTABLE CHEST 1 VIEWAccession #: [id number] ===PORTABLE CHEST 1 VIEW 08/15/2017 7:54 AM [...] findings. Electronically signed by:Nina Beaver. Transcribed by: [email or web address], User Resident: JAZMIN MARElectronically Signed by: NINA BEAVER @ 08/15/2017 10:25 AMI personally read this/these film(s) with this resident Normal [facility] Comment on above: Order Comment: R/O E ffusion BASIC METABOLIC PANELon 03-0 Calcium 8.6 mg/dL Normal 8.6-10.3 [facility] Comment on above: Order Comment: No: D o not add to previous draw Performed By: #### 0 0121, 39537 ####[facility] [place] [address], [facility] Chloride 103 mmol/L Normal 98-107 [facility] Comment on above: Order Comment: No: D o not add to previous draw Performed By: #### 0 0121, 90436 ####[facility] [place] [address], [place] CO2 30 mmol/L Normal 21-31 [facility] Comment on above: Order Comment: No: D o not add to previous draw Performed By: #### 0 0121, 59771 ####[facility] [place] [address], [facility] Creatinine 0.60 mg/dL Normal 0.60-1.20 [facility] Comment on above: Order Comment: No: D o not add to previous draw Performed By: #### 0 0121, 07477 ####[facility] [place] [address], [facility] eGFR (black) mL/min/{1.73_m2} Normal >60 [facility] Comment on above: Order Comment: No: D o not add to previous draw Result Comment: Calc ulation may not be valid for patients over 70 years Performed By: #### 0 0121, 22412 ####[facility] [place] [address], [place] eGFR (non-black) mL/min/{1.73_m2} Normal >60 Th e [facility] Comment on above: Order Comment: No: D o not add to previous draw Result Comment: Calc ulation may not be valid for patients over 70 years Performed By: #### 0 0121, 23274 ####[facility] [place] [address], [place] Glucose mass conc 81 mg/dL Normal 70-100 [facility] Comment on above: Order Comment: No: D o not add to previous draw Performed By: #### 0 0121, 64829 ####[facility] [place] [address], [facility] Potassium molar conc 3.0 mmol/L Low 3.5-5.1 [facility] Comment on above: Order Comment: No: D o not add to previous draw Performed By: #### 0 0121, 53684 ####[facility] Sodium 138 mmol/L Normal 136-145 [facility] Comment on above: Order Comment: No: D o not add to previous draw Performed By: #### 0 0121, 40717 ####[facility] Urea nitrogen 12 mg/dL Normal 7-25 [facility] Comment on above: Order Comment: No: D o not add to previous draw Performed By: #### 0 0121, 58593 ####[facility] [facility] CBC COMPLETE BLOOD COUNTon 0 08-14-2017 Erythrocyte distribution width Auto Ratio (RBC) 14.9 % Normal 11.5-15.0 [facility] Comment on above: Order Comment: No: D o not add to previous draw Performed By: #### 0 0121, 77052 ####[facility] Erythrocytes (RBC) 3.80 10*6/uL Normal 3.80-5.00 [facility] Comment on above: Order Comment: No: D o not add to previous draw Performed By: #### 0 0121, 19875 ####[facility] Erythrocytes (RBC) 0 % Normal 0-0 [facility] Comment on above: Order Comment: No: D o not add to previous draw Performed By: #### 0 0121, 86734 ####[facility] Hematocrit (HCT) 34.3 % Low 36.0-45.0 [facility] Comment on above: Order Comment: No: D o not add to previous draw Performed By: #### 0 0121, 94700 ####[facility] Hemoglobin mass conc (Bld) 11.7 g/dL Low 12.0-15.0 [facility] Comment on above: Order Comment: No: D o not add to previous draw Performed By: #### 0 0121, 48448 ####[facility] [facility].[address] MCH 30.8 pg Normal 27.0-33.0 [facility] Comment on above: Order Comment: No: D o not add to previous draw Performed By: #### 0 0121, 38427 ####[facility] [facility].[address] MCHC mass conc (RBC) 34.1 g/dL Normal 32.0-35.0 [facility] Comment on above: Order Comment: No: D o not add to previous draw Performed By: #### 0 0121, 97140 ####[facility] [facility].[address] MCV 90.3 fL Normal 82.0-98.0 [facility] Comment on above: Order Comment: No: D o not add to previous draw Performed By: #### 0 0121, 18138 ####[facility] [facility] [place] [address], [facility] PLAT CNT 134 10*3/uL Low 150-400 [facility] Comment on above: Order Comment: No: D o not add to previous draw Performed By: #### 0 0121, 65744 ####[address] WBC (Leukocytes) 11.5 10*3/uL High 4.0-10.6 [facility] Comment on above: Order Comment: No: D o not add to previous draw Performed By: #### 0 0121, 49320 ####[address] MAGNESIUM BLOODon 08-14-2017 Magnesium 1.9 mg/dL Normal 1.9-2.7 [facility] Comment on above: Order Comment: No: D o not add to previous draw Performed By: #### 0 0121, 18049 ####[address] PHOSPHORUS BLOODon 8 Phosphate 2.5 mg/dL Normal 2.5-5.0 [facility] Comment on above: Order Comment: No: D o not add to previous draw Performed By: #### 0 0121, 87535 ####[address] PORTABLE CHEST 1 VIEWon PORTABLE CHEST 1 VIEW [facility] Dyigdnwuo[address] [place] [address] Sera ent Name: JUDITH KHAN : 1945Sex: FAge: Race: WhiteMRN: [id number]. Location: [id number] Status: IVisit #: [id number] Date: 08/14/2017 8:00:00 AMCompleted Date: 08/14/2017 08:34 AMRequesting Provider: JOSH PALMER Attending Provider: ALEXANDER OLSON Report Copy To: Signs & Symptoms: O2 DesaturationHistory: Patient history not availableComments: R/O AtelectasisExam: PORTABLE CHEST 1 VIEWAccession #: [id number] ===PORTABLE CHEST 1 VIEW 08/14/2017 8:34 AM [...] findings. Electronically signed by:Kristian Nascimento. Transcribed by: [email or web address], User Resident: JAZMIN MARElectronically Signed by: KRISTIAN NASCIMENTO @ 08/14/2017 09:18 PMI personally read this/these film(s) with this resident Normal [facility] Comment on above: Order Comment: R/O A telectasis BASIC METABOLIC PANELon 03-0 Calcium 8.4 mg/dL Low 8.6-10.3 [facility] Comment on above: Order Comment: No: D o not add to previous draw Performed By: #### 0 0121, 33795 ####[facility] [facility] [place] [address], [facility] Chloride 109 mmol/L High 98-107 [facility] Comment on above: Order Comment: No: D o not add to previous draw Performed By: #### 0 0121, 46618 ####[facility] [facility] [place] [address], [facility] CO2 30 mmol/L Normal 21-31 [facility] Comment on above: Order Comment: No: D o not add to previous draw Performed By: #### 0 0121, 15668 ####[facility] [facility] [place] [address], [facility] Creatinine 0.62 mg/dL Normal 0.60-1.20 [facility] Comment on above: Order Comment: No: D o not add to previous draw Performed By: #### 0 0121, 71976 ####[facility] eGFR (black) mL/min/{1.73_m2} Normal >60 [facility] Comment on above: Order Comment: No: D o not add to previous draw Result Comment: Calc ulation may not be valid for patients over 70 years Performed By: #### 0 0121, 61534 ####[facility] eGFR (non-black) mL/min/{1.73_m2} Normal >60 Th e [facility] Comment on above: Order Comment: No: D o not add to previous draw Result Comment: Calc ulation may not be valid for patients over 70 years Performed By: #### 0 0121, 46608 ####[facility] [place] [address], [facility] Glucose mass conc 99 mg/dL Normal 70-100 [facility] Comment on above: Order Comment: No: D o not add to previous draw Performed By: #### 0 0121, 55797 ####[facility] Potassium molar conc 3.2 mmol/L Low 3.5-5.1 [facility] Comment on above: Order Comment: No: D o not add to previous draw Performed By: #### 0 0121, 71125 ####[facility] Sodium 143 mmol/L Normal 136-145 [facility] Comment on above: Order Comment: No: D o not add to previous draw Performed By: #### 0 0121, 04668 ####[facility] Urea nitrogen 14 mg/dL Normal 7-25 [facility] Comment on above: Order Comment: No: D o not add to previous draw Performed By: #### 0 0121, 48959 ####[facility] CBC COMPLETE BLOOD COUNTon 0 - Erythrocyte distribution width Auto Ratio (RBC) 15.9 % High 11.5-15.0 [facility] Comment on above: Order Comment: No: D o not add to previous draw Performed By: #### 0 0121, 86805 ####[facility] Erythrocytes (RBC) 0 % Normal 0-0 [facility] Comment on above: Order Comment: No: D o not add to previous draw Performed By: #### 0 0121, 51145 ####[facility] Erythrocytes (RBC) 3.76 10*6/uL Low 3.80-5.00 [facility] Comment on above: Order Comment: No: D o not add to previous draw Performed By: #### 0 0121, 07295 ####[facility] Hematocrit (HCT) 34.3 % Low 36.0-45.0 [facility] Comment on above: Order Comment: No: D o not add to previous draw Performed By: #### 0 0121, 43576 ####[facility] Hemoglobin mass conc (Bld) 11.4 g/dL Low 12.0-15.0 [facility] Comment on above: Order Comment: No: D o not add to previous draw Performed By: #### 0 0121, 04050 ####[facility] MCH 30.3 pg Normal 27.0-33.0 [facility] Comment on above: Order Comment: No: D o not add to previous draw Performed By: #### 0 0121, 95721 ####[facility] [facility].[address] MCHC mass conc (RBC) 33.2 g/dL Normal 32.0-35.0 [facility] Comment on above: Order Comment: No: D o not add to previous draw Performed By: #### 0 0121, 32202 ####[facility] MCV 91.2 fL Normal 82.0-98.0 [facility] Comment on above: Order Comment: No: D o not add to previous draw Performed By: #### 0 0121, 77097 ####[facility] [facility].[address] PLAT CNT 95 10*3/uL Low 150-400 [facility] Comment on above: Order Comment: No: D o not add to previous draw Performed By: #### 0 0121, 68925 ####[facility] WBC (Leukocytes) 9.1 10*3/uL Normal 4.0-10.6 [facility] Comment on above: Order Comment: No: D o not add to previous draw Performed By: #### 0 0121, 16179 ####[facility] [place] [address], [facility] MAGNESIUM BLOODon 08-13-2017 Magnesium 1.8 mg/dL Low 1.9-2.7 [facility] Comment on above: Order Comment: No: D o not add to previous draw Performed By: #### 0 0121, [id number] ####[facility] [place] [address], [facility] PHOSPHORUS BLOODon 8 Phosphate 1.9 mg/dL Low 2.5-5.0 [facility] Comment on above: Order Comment: No: D o not add to previous draw Performed By: #### 0 0121, 33230 ####[facility] BASIC METABOLIC PANELon Calcium 8.4 mg/dL Low 8.6-10.3 [facility] Comment on above: Order Comment: No: D o not add to previous draw Performed By: #### 0 0121, 82937 ####[facility] [place] [address], [facility] Chloride 113 mmol/L High 98-107 [facility] Comment on above: Order Comment: No: D o not add to previous draw Performed By: #### 0 0121, 15002 ####[facility] [place] [address], [facility] CO2 25 mmol/L Normal 21-31 [facility] Comment on above: Order Comment: No: D o not add to previous draw Performed By: #### 0 0121, 89081 ####[facility] [place] [address], [facility] Creatinine 0.75 mg/dL Normal 0.60-1.20 [facility] Comment on above: Order Comment: No: D o not add to previous draw Performed By: #### 0 0121, 22348 ####[facility] [place] [address], [facility] eGFR (black) mL/min/{1.73_m2} Normal >60 [facility] Comment on above: Order Comment: No: D o not add to previous draw Result Comment: Calc ulation may not be valid for patients over 70 years Performed By: #### 0 0121, 25606 ####[facility] eGFR (non-black) mL/min/{1.73_m2} Normal >60 Th e [facility] Comment on above: Order Comment: No: D o not add to previous draw Result Comment: Calc ulation may not be valid for patients over 70 years Performed By: #### 0 0121, 05857 ####[facility] [place] [address], [facility] Glucose mass conc 116 mg/dL High 70-100 [facility] Comment on above: Order Comment: No: D o not add to previous draw Performed By: #### 0 0121, 25452 ####[facility] [place] [address], [facility] Potassium molar conc 3.6 mmol/L Normal 3.5-5.1 [facility] Comment on above: Order Comment: No: D o not add to previous draw Performed By: #### 0 0121, 40565 ####[facility] [place] [address], [facility] Sodium 144 mmol/L Normal 136-145 [facility] Comment on above: Order Comment: No: D o not add to previous draw Performed By: #### 0 0121, 82546 ####[facility] Urea nitrogen 16 mg/dL Normal 7-25 [facility] Comment on above: Order Comment: No: D o not add to previous draw Performed By: #### 0 0121, 64095 ####[facility] CBC COMPLETE BLOOD COUNTon 0 08-12-2017 Erythrocyte distribution width Auto Ratio (RBC) 16.3 % High 11.5-15.0 [facility] Comment on above: Order Comment: No: D o not add to previous draw Performed By: #### 0 0121, 66292 ####[facility] Erythrocytes (RBC) 4.15 10*6/uL Normal 3.80-5.00 [facility] Comment on above: Order Comment: No: D o not add to previous draw Performed By: #### 0 0121, 93049 ####[facility] Erythrocytes (RBC) 0 % Normal 0-0 [facility] Comment on above: Order Comment: No: D o not add to previous draw Performed By: #### 0 0121, 13357 ####[facility] Hematocrit (HCT) 37.6 % Normal 36.0-45.0 [facility] Comment on above: Order Comment: No: D o not add to previous draw Performed By: #### 0 0121, 73418 ####[facility] [place] [address], [facility] Hemoglobin mass conc (Bld) 12.5 g/dL Normal 12.0-15.0 [facility] Comment on above: Order Comment: No: D o not add to previous draw Performed By: #### 0 0121, 54483 ####[facility] MCH 30.1 pg Normal 27.0-33.0 [facility] Comment on above: Order Comment: No: D o not add to previous draw Performed By: #### 0 0121, 27313 ####[facility] MCHC mass conc (RBC) 33.2 g/dL Normal 32.0-35.0 [facility] Comment on above: Order Comment: No: D o not add to previous draw Performed By: #### 0 0121, 49557 ####[facility] MCV 90.6 fL Normal 82.0-98.0 [facility] Comment on above: Order Comment: No: D o not add to previous draw Performed By: #### 0 0121, 58736 ####[facility] PLAT CNT 89 10*3/uL Low 150-400 [facility] Comment on above: Order Comment: No: D o not add to previous draw Performed By: #### 0 0121, 98335 ####[facility] WBC (Leukocytes) 13.5 10*3/uL High 4.0-10.6 [facility] Comment on above: Order Comment: No: D o not add to previous draw Performed By: #### 0 0121, 86629 ####[facility] HEMATOCRITon 08-12-2017 Hematocrit (HCT) 37.6 % Normal 36.0-45.0 [facility] Comment on above: Order Comment: No: D o not add to previous draw Performed By: #### 0 0121, 86751 ####[facility] HEMOGLOBINon 08-12-2017 Hemoglobin mass conc (Bld) 12.6 g/dL Normal 12.0-15.0 [facility] Comment on above: Order Comment: No: D o not add to previous drawLAB DRAW NOW - PER CECY MCELROY Performed By: #### 0 0121, 42947 ####[facility] MAGNESIUM BLOODon 08-12-2017 Magnesium 1.9 mg/dL Normal 1.9-2.7 [facility] Comment on above: Order Comment: No: D o not add to previous draw Performed By: #### 0 0121, 20299 ####[facility] PHOSPHORUS BLOODon 8 Phosphate 2.1 mg/dL Low 2.5-5.0 [facility] Comment on above: Order Comment: No: D o not add to previous draw Performed By: #### 0 0121, 88837 ####[facility] PORTABLE CHEST 1 VIEWon PORTABLE CHEST 1 VIEW [facility] Ghfbatfll[address] [place], [place] [address] Sera ent Name: JUDITH KHAN : 1945Sex: FAge: Race: WhiteMRN: [id number]. Location: [id number] Status: IVisit #: [id number] Date: 08/12/2017 7:00:00 AMCompleted Date: 08/12/2017 09:16 AMRequesting Provider: SHANON HERNANDEZ Attending Provider: ALEXANDER OLSON Report Copy To: Signs & Symptoms: O2 DesaturationHistory: Patient history not availableComments: R/O AtelectasisExam: PORTABLE CHEST 1 VIEWAccession #: [id number] ===PORTABLE CHEST 1 VIEW 08/12/2017 9:16 AM [...] findings. Electronically signed by:Kristian Nascimento. Transcribed by: [email or web address], User Resident: [email or web address] OTRRESElectronically Signed by: KRISTIAN NASCIMENTO @ 08/12/2017 12:27 PMI personally read this/these film(s) with this resident Normal [facility] Comment on above: Order Comment: R/O A telectasis ALCOHOLon 08-11-2017 Ethanol NONE DETECTED Normal [facility] Comment on above: Result Comment: Divi de by 1000 to convert mg/dL to percent. Example: 100mg/dL = 0.1%. Performed By: #### 1 0054, 27763 ####[facility] [place] [address], [facility] APTTon 08-11-2017 aPTT 42.8 s High 25.0-35.0 [facility] Comment on above: Order Comment: No: [...] THIS PURPOSE. Performed By: #### 1 53, ####[facility] aPTT 27.2 s Normal 25.0-35.0 [facility] Comment on above: Result Comment: ALL [...] THIS PURPOSE. Performed By: #### 5 6101, 35853 ####[facility] ARTERIAL BLOOD GAS WITH ICAo n 08-11-2017 BASE EXCESS -7 mmol/L Low -2-2 [facility] Comment on above: Performed By: #### 1 ####[facility] Bicarbonate (HCO3) 18 mmol/L Low 23-27 [facility] Comment on above: Performed By: #### 1 53, ####[facility] CO2 34 mmHg Low 35-45 [facility] Comment on above: Performed By: #### 1 53, ####[facility] DELIVERY SYSTEMS MV Normal [facility] Comment on above: Performed By: #### 1 ####[facility] [place] [address], [place] FIO2 40 % Normal 21-100 [facility] Comment on above: Performed By: #### 1 ####[facility] [place] [address], [place] IONIZED CALCIUM 1.13 mmol/L Normal 1.13-1.32 [facility] Comment on above: Performed By: #### 1 ####[facility] [place] [address], [place] MIN VOLUME 7.2 Normal [facility] Comment on above: Performed By: #### 1 ####[facility] [place] [address], [place] MODALITY AC Normal [facility] Comment on above: Performed By: #### 1 ####[facility] [place] [address], [place] O2 saturation 95.5 % Normal 94.0-97.0 [facility] Comment on above: Performed By: #### 1 ####[facility] [place] [address], [place] Oxygen in arterial blood 161 mm[Hg] Critically high 75-100 [facility] Comment on above: Performed By: #### 1 ####[facility] [place] [address], [place] PEEP 5.0 CMH20 Normal [facility] Comment on above: Performed By: #### 1 ####[facility] [place] [address], [place] PF RATIO 403 mmHg High 50-400 [facility] Comment on above: Performed By: #### 1 53, ####[facility] [place] [address], [facility] pH of blood 7.33 [pH] Low 7.35-7.45 [facility] Comment on above: Performed By: #### 1 53, ####[facility] [facility] Respiratory rate 16 /min Normal [facility] Comment on above: Performed By: #### 1 53, ####[facility] TIDAL VOLUME (VT) CC 450 Normal [facility] Comment on above: Performed By: #### 1 53, ####[facility] [facility] BASE EXCESS -9 mmol/L Low -2-2 [facility] Comment on above: Order Comment: RESUL TS CHECKED AND CALLED. ACCURATELY READ BACK BY DAT Performed By: #### 1 ####[facility] [facility] Bicarbonate (HCO3) 18 mmol/L Low 23-27 [facility] Comment on above: Order Comment: RESUL TS CHECKED AND CALLED. ACCURATELY READ BACK BY DAT Performed By: #### 1 ####[facility] [place] [address], [facility] CO2 44 mmHg Normal 35-45 [facility] Comment on above: Order Comment: RESUL TS CHECKED AND CALLED. ACCURATELY READ BACK BY DAT Performed By: #### 1 ####[facility] [place] [address], [facility] IONIZED CALCIUM 1.05 mmol/L Low 1.13-1.32 [facility] Comment on above: Order Comment: RESUL TS CHECKED AND CALLED. ACCURATELY READ BACK BY DAT Performed By: #### 1 53, ####[facility] [place] [address], [facility] O2 saturation 96.9 % Normal 94.0-97.0 [facility] Comment on above: Order Comment: RESUL TS CHECKED AND CALLED. ACCURATELY READ BACK BY DAT Performed By: #### 1 53, ####[facility] [place] [address], [facility] Oxygen in arterial blood 532 mm[Hg] Critically high 75-100 [facility] Comment on above: Order Comment: RESUL TS CHECKED AND CALLED. ACCURATELY READ BACK BY DAT Performed By: #### 1 53, ####[facility] pH of blood 7.22 [pH] Critically low 7.35-7.45 [facility] Comment on above: Order Comment: RESUL TS CHECKED AND CALLED. ACCURATELY READ BACK BY DAT Performed By: #### 1 53, ####[facility] [facility] BASIC METABOLIC PANELon 03-0 Calcium 8.1 mg/dL Low 8.6-10.3 [facility] Comment on above: Order Comment: No: D o not add to previous draw Performed By: #### 1 53, ####[facility] [place] [address], [facility] Chloride 116 mmol/L High 98-107 [facility] Comment on above: Order Comment: No: D o not add to previous draw Performed By: #### 1 53, ####[facility] Creatinine 0.85 mg/dL Normal 0.60-1.20 [facility] Comment on above: Order Comment: No: D o not add to previous draw Performed By: #### 1 53, ####[facility] [place] [address], [place] Glucose mass conc 109 mg/dL High 70-100 [facility] Comment on above: Order Comment: No: D o not add to previous draw Performed By: #### 1 53, ####[facility] [place] [address], [place] Potassium molar conc 4.9 mmol/L Normal 3.5-5.1 [facility] Comment on above: Order Comment: No: D o not add to previous draw Performed By: #### 1 53, ####[facility] [place] [address], [place] Sodium 142 mmol/L Normal 136-145 [facility] Comment on above: Order Comment: No: D o not add to previous draw Performed By: #### 1 53, ####[facility] [place] [address], [place] Urea nitrogen 16 mg/dL Normal 7-25 [facility] Comment on above: Order Comment: No: D o not add to previous draw Performed By: #### 1 53, ####[facility] [place] [address], [place] Calcium 7.9 mg/dL Low 8.6-10.3 [facility] Comment on above: Order Comment: No: D o not add to previous draw Performed By: #### 1 53, ####[facility] [place] [address], [place] Chloride 113 mmol/L High 98-107 [facility] Comment on above: Order Comment: No: D o not add to previous draw Performed By: #### 1 53, ####[facility] [place] [address], [place] CO2 22 mmol/L Normal 21-31 [facility] Comment on above: Order Comment: No: D o not add to previous draw Performed By: #### 1 53, ####[facility]3000 [facility].[address] Creatinine 0.68 mg/dL Normal 0.60-1.20 [facility] Comment on above: Order Comment: No: D o not add to previous draw Performed By: #### 1 53, ####[facility]3000 [facility].[address] eGFR (black) mL/min/{1.73_m2} Normal >60 [facility] Comment on above: Order Comment: No: D o not add to previous draw Result Comment: Calc ulation may not be valid for patients over 70 years Performed By: #### 1 53, ####[facility]3000 [facility].[address] eGFR (non-black) mL/min/{1.73_m2} Normal >60 Th e [facility] Comment on above: Order Comment: No: D o not add to previous draw Result Comment: Calc ulation may not be valid for patients over 70 years Performed By: #### 1 53, ####[facility]3000 [facility].[address] Glucose mass conc 141 mg/dL High 70-100 [facility] Comment on above: Order Comment: No: D o not add to previous draw Performed By: #### 1 53, ####[facility]3000 [facility] [place] [address], [facility] Potassium molar conc 3.3 mmol/L Low 3.5-5.1 [facility] Comment on above: Order Comment: No: D o not add to previous draw Performed By: #### 1 53, ####[facility] Sodium 139 mmol/L Normal 136-145 [facility] Comment on above: Order Comment: No: D o not add to previous draw Performed By: #### 1 53, ####[facility] Urea nitrogen 12 mg/dL Normal 7-25 [facility] Comment on above: Order Comment: No: D o not add to previous draw Performed By: #### 1 53, ####[facility] CBC W/DIFFon 08-11-2017 ABS BASOPHILS 0.0 10*3/uL Normal 0.0-0.2 [facility] Comment on above: Performed By: #### 1 53, ####[facility] ABS IMM GRANS 0.0 10*3/uL Normal 0.0-0.2 [facility] Comment on above: Performed By: #### 1 53, ####[facility] Basophils Auto #/vol (Bld) 0.1 % Normal 0.0-1.0 [facility] Comment on above: Performed By: #### 1 53, ####[facility] Eosinophils 0.0 10*3/uL Normal 0.0-0.5 [facility] Comment on above: Performed By: #### 1 53, ####[facility] Eosinophils/100 leukocytes 0.1 % Normal 0.0-6.0 [facility] Comment on above: Performed By: #### 1 53 ####[facility] [facility] Erythrocyte distribution width Auto Ratio (RBC) 15.1 % High 11.5-15.0 [facility] Comment on above: Performed By: #### 1 ####[facility] [facility] Erythrocytes (RBC) 0 % Normal 0-0 [facility] Comment on above: Performed By: #### 1 ####[facility]3000 [facility].[address] Erythrocytes (RBC) 4.46 10*6/uL Normal 3.80-5.00 [facility] Comment on above: Performed By: #### 1 ####[place] [address] [facility].[address] Hematocrit (HCT) 40.3 % Normal 36.0-45.0 [facility] Comment on above: Performed By: #### 1 ####[place] [address] [facility].[address] Hemoglobin mass conc (Bld) 13.5 g/dL Normal 12.0-15.0 [facility] Comment on above: Performed By: #### 1 ####[facility]3000 [facility].[address] IMMATURE GRANS 0.2 % Normal 0.0-1.0 [facility] Comment on above: Performed By: #### 1 ####[place] [address] [facility].[address] Lymphocytes 0.9 10*3/uL Low 1.2-4.0 [facility] Comment on above: Performed By: #### 1 ####[address] [place] [address], [facility] Lymphocytes/100 leukocytes 5.8 % Low 20.0-45.0 [facility] Comment on above: Performed By: #### 1 ####[facility] MCH 30.3 pg Normal 27.0-33.0 [facility] Comment on above: Performed By: #### 1 ####[facility] [facility] MCHC mass conc (RBC) 33.5 g/dL Normal 32.0-35.0 [facility] Comment on above: Performed By: #### 1 ####[place] [address] [facility].[address] MCV 90.4 fL Normal 82.0-98.0 [facility] Comment on above: Performed By: #### 1 ####[facility]3000 [facility].[address] Monocytes 0.7 10*3/uL Normal 0.1-1.0 [facility] Comment on above: Performed By: #### 1 ####[facility]3000 [facility].[address] MONOS 4.6 % Low 5.0-12.0 [facility] Comment on above: Performed By: #### 1 ####[facility]3000 [facility] [place] [address], [facility] Neutrophils 13.6 10*3/uL High 1.6-7.6 [facility] Comment on above: Performed By: #### 1 ####[facility] Neutrophils/100 leukocytes 89.2 % High 40.0-72.0 [facility] Comment on above: Performed By: #### 1 53, ####[facility]3000 [facility].[address] PLAT CNT 94 10*3/uL Low 150-400 [facility] Comment on above: Result Comment: P = 126 Performed By: #### 1 53, ####[facility] WBC (Leukocytes) 15.2 10*3/uL High 4.0-10.6 [facility] Comment on above: Performed By: #### 1 53, ####[facility]3000 [facility].[address] ABS BASOPHILS 0.0 10*3/uL Normal 0.0-0.2 [facility] Comment on above: Performed By: #### 5 102 ####[facility]3000 [facility].[address] ABS IMM GRANS 0.1 10*3/uL Normal 0.0-0.2 [facility] Comment on above: Performed By: #### 5 102 ####[facility] Basophils Auto #/vol (Bld) 0.3 % Normal 0.0-1.0 [facility] Comment on above: Performed By: #### 5 102 ####[facility]3000 [facility] [place] [address], [facility] Eosinophils 0.0 10*3/uL Normal 0.0-0.5 [facility] Comment on above: Performed By: #### 102 ####[facility]3000 [facility] [place] [address], [facility] Eosinophils/100 leukocytes 0.2 % Normal 0.0-6.0 [facility] Comment on above: Performed By: #### 5 0103 ####[facility] Erythrocyte distribution width Auto Ratio (RBC) 14.3 % Normal 11.5-15.0 [facility] Comment on above: Performed By: #### 5 0103 ####[facility] Erythrocytes (RBC) 3.50 10*6/uL Low 3.80-5.00 [facility] Comment on above: Performed By: #### 5 0103 ####[facility] Erythrocytes (RBC) 0 % Normal 0-0 [facility] Comment on above: Performed By: #### 5 0103 ####[facility] Hematocrit (HCT) 32.5 % Low 36.0-45.0 [facility] Comment on above: Performed By: #### 5 0103 ####[facility] Hemoglobin mass conc (Bld) 10.9 g/dL Low 12.0-15.0 [facility] Comment on above: Performed By: #### 5 0103 ####[facility] IMMATURE GRANS 0.4 % Normal 0.0-1.0 [facility] Comment on above: Performed By: #### 5 0103 ####[facility] Lymphocytes 2.3 10*3/uL Normal 1.2-4.0 [facility] Comment on above: Performed By: #### 5 0103 ####[facility] [place] [address], [facility] Lymphocytes/100 leukocytes 17.6 % Low 20.0-45.0 [facility] Comment on above: Performed By: #### 5 0103 ####[facility] [place] [address], [facility] MCH 31.1 pg Normal 27.0-33.0 [facility] Comment on above: Performed By: #### 5 0103 ####[facility] MCHC mass conc (RBC) 33.5 g/dL Normal 32.0-35.0 [facility] Comment on above: Performed By: #### 5 0103 ####[facility] [place] [address], [facility] MCV 92.9 fL Normal 82.0-98.0 [facility] Comment on above: Performed By: #### 5 0103 ####[facility] [place] [address], [facility] Monocytes 0.8 10*3/uL Normal 0.1-1.0 [facility] Comment on above: Performed By: #### 5 0103 ####[facility] [place] [address], [facility] MONOS 6.1 % Normal 5.0-12.0 [facility] Comment on above: Performed By: #### 5 0103 ####[facility] [place] [address], [facility] Neutrophils 9.7 10*3/uL High 1.6-7.6 [facility] Comment on above: Performed By: #### 5 0103 ####[facility] [place] [address], [facility] Neutrophils/100 leukocytes 75.4 % High 40.0-72.0 [facility] Comment on above: Performed By: #### 5 0103 ####[facility] PLAT CNT 126 10*3/uL Low 150-400 [facility] Comment on above: Performed By: #### 5 0103 ####[facility] WBC (Leukocytes) 12.9 10*3/uL High 4.0-10.6 [facility] Comment on above: Performed By: #### 5 0103 ####[facility] COMP METABOLIC PANELon 08-11 Alanine aminotransferase (ALT) 8 U/L Normal 7-52 [facility] Comment on above: Performed By: #### 0 0121, 45552 ####[facility] Albumin 2.6 g/dL Low 3.5-5.7 [facility] Comment on above: Performed By: #### 0 0121, 12642 ####[facility] ALKALINE PHOSPH 34 IU/L Normal 34-104 [facility] Comment on above: Performed By: #### 0 0121, 24629 ####[facility] Aspartate aminotransferase (AST) 11 U/L Low 13-39 [facility] Comment on above: Performed By: #### 0 0121, 82519 ####[facility] Bilirubin (total) 0.7 mg/dL Normal 0.3-1.0 [facility] Comment on above: Performed By: #### 0 0121, 67418 ####[facility] [place] [address], [facility] Calcium 7.4 mg/dL Low 8.6-10.3 [facility] Comment on above: Performed By: #### 0 0121, 73103 ####[facility] [place] [address], [place] Chloride 112 mmol/L High 98-107 [facility] Comment on above: Performed By: #### 0 0121, 39799 ####[facility] [place] [address], [place] CO2 22 mmol/L Normal 21-31 [facility] Comment on above: Performed By: #### 0 0121, 25265 ####[facility] [place] [address], [facility] Creatinine 0.83 mg/dL Normal 0.60-1.20 [facility] Comment on above: Performed By: #### 0 0121, 28349 ####[facility] [place] [address], [facility] eGFR (black) mL/min/{1.73_m2} Normal >60 [facility] Comment on above: Result Comment: Calc ulation may not be valid for patients over 70 years Performed By: #### 0 0121, 80072 ####[facility] [place] [address], [facility] eGFR (non-black) mL/min/{1.73_m2} Normal >60 Th e [facility] Comment on above: Result Comment: Calc ulation may not be valid for patients over 70 years Performed By: #### 0 0121, 03239 ####[facility] [place] [address], [place] Glucose mass conc 138 mg/dL High 70-100 [facility] Comment on above: Performed By: #### 0 0121, 75024 ####[facility] [place] [address], [facility] Potassium molar conc 4.0 mmol/L Normal 3.5-5.1 [facility] Comment on above: Performed By: #### 0 0121, 09122 ####[facility] [place] [address], [facility] Protein 4.1 g/dL Low 6.0-8.3 [facility] Comment on above: Performed By: #### 0 0121, 47406 ####[facility] [place] [address], [facility] Sodium 138 mmol/L Normal 136-145 [facility] Comment on above: Performed By: #### 0 0121, 10629 ####[facility] [place] [address], [facility] Urea nitrogen 16 mg/dL Normal 7-25 [facility] Comment on above: Performed By: #### 0 0121, 16559 ####[facility] [facility].[address] Consultationon 08-11-2017 Consultation MR#: [id number] Pt. Name: Judith Khan Date of Service: 08/10/2017 Room #: SIC [id number] Birthdate: 1945 Referring Physician: CONSULTATIONREASON FOR CONSULTATION: Critical care management status post splenectomy,ventilatory management.HISTORY OF PRESENT ILLNESS: Ms. Judith Khan is a 72-year-old female witha history of hypertension, hyperlipidemia, diabetes, and COPD, whopresented as a transfer from [place], [place] with a traumatic brain injury.The patient [...] days. She presented to the hospital in [place], [place], and aCT abdomen and pelvis was obtained that demonstrated a grade 5 spleniclaceration. The patient was initially hemodynamically stable per reportsfrom the outside facility, however she became markedly hypotensive,unresponsive to multiple fluid boluses, and was transferred to [facility] as a level 1 trauma. When [...] chronic obstructivepulmonary disease, not on home O2; eyk-trykuzn-vnbcbkhrj diabetes mellitus,type 2; anxiety.PAST SURGICAL HISTORY: Hysterectomy, [...] the setting ofcritical care status.Endocrine: History of ura-dvdcwdu-cjfkmhljc diabetes mellitus, type 2, onhome metformin. We [...] Dict: 08/11/2017/04:38 A/Pippa Gutierrez Trans: 08/11/2017 02:22 P/peteoDTeresa_JN:[id number] Normal [facility] FRESH FROZEN PLASMA 2 UNITSo n 08-11-2017 PRODUCT CODE 1 E2701 Normal [facility] Comment on above: Order Comment: INR: 1.22 ,PTT: 27.2 at the time of order ;Indication: Activebleeding/invasive procedure with prolonged PT/PTT or INR > 1.6 Performed By: #### 1 53, ####[facility] PRODUCT CODE 2 E2701 Normal [facility] Comment on above: Order Comment: INR: 1.22 ,PTT: 27.2 at the time of order ;Indication: Activebleeding/invasive procedure with prolonged PT/PTT or INR > 1.6 Performed By: #### 1 53, ####[facility] [facility].[address] PRODUCT STATUS 1 PT Normal [facility] [...] was IS. Performed By: #### 1 53, ####[facility] [facility].[address] PRODUCT STATUS 2 PT Normal [facility] Comment on above: Order Comment: INR: 1.22 ,PTT: 27.2 at the time of order ;Indication: Activebleeding/invasive procedure with prolonged PT/PTT or INR > 1.6 Result Comment: Resu lt changed by IF on 08/11/2017 03:17. The previous value was XM.Result changed by IF on 08/13/2017 02:00. The previous value was IS. Performed By: #### 1 53, ####[facility] UNIT ABO 1 O Normal [facility] Comment on above: Order Comment: INR: 1.22 ,PTT: 27.2 at the time of order ;Indication: Activebleeding/invasive procedure with prolonged PT/PTT or INR > 1.6 Performed By: #### 1 53, ####[facility] UNIT ABO 2 O Normal [facility] Comment on above: Order Comment: INR: 1.22 ,PTT: 27.2 at the time of order ;Indication: Activebleeding/invasive procedure with prolonged PT/PTT or INR > 1.6 Performed By: #### 1 53, ####[facility] UNIT ID 1 [id number] Normal [facility] Comment on above: Order Comment: INR: 1.22 ,PTT: 27.2 at the time of order ;Indication: Activebleeding/invasive procedure with prolonged PT/PTT or INR > 1.6 Performed By: #### 1 53, ####[facility] UNIT ID 2 [id number] Normal [facility] Comment on above: Order Comment: INR: 1.22 ,PTT: 27.2 at the time of order ;Indication: Activebleeding/invasive procedure with prolonged PT/PTT or INR > 1.6 Performed By: #### 1 53, ####[facility] [facility] UNIT RH 1 Positive Normal [facility] Comment on above: Order Comment: INR: 1.22 ,PTT: 27.2 at the time of order ;Indication: Activebleeding/invasive procedure with prolonged PT/PTT or INR > 1.6 Performed By: #### 1 53, ####[facility] [facility].[address] UNIT RH 2 Negative Normal [facility] Comment on above: Order Comment: INR: 1.22 ,PTT: 27.2 at the time of order ;Indication: Activebleeding/invasive procedure with prolonged PT/PTT or INR > 1.6 Performed By: #### 1 53, ####[facility] [facility] [place] [address], [facility] HEMATOCRITon 08-11-2017 Hematocrit (HCT) 37.7 % Normal 36.0-45.0 [facility] Comment on above: Order Comment: No: D o not add to previous draw Performed By: #### 1 53, ####[facility] [facility].[address] Hematocrit (HCT) 34.8 % Low 36.0-45.0 [facility] Comment on above: Order Comment: No: D o not add to previous draw Performed By: #### 1 53, ####[facility] [facility].[address] HEMOGLOBINon 08-11-2017 Hemoglobin mass conc (Bld) 12.7 g/dL Normal 12.0-15.0 [facility] Comment on above: Order Comment: No: D o not add to previous drawLAB DRAW NOW - PER CECY MCELROY Performed By: #### 1 53, ####[facility] [facility].[address] Hemoglobin mass conc (Bld) 11.8 g/dL Low 12.0-15.0 [facility] Comment on above: Order Comment: No: D o not add to previous draw Performed By: #### 1 53, ####[facility] [facility].[address] History and Physicalon 08-11 History and Physical MR#: [id number] Pt. Name: Judith Khan Admitted: 08/11/2017 Date of : 1945 Attending Physician: Alexander Olson M.D. Room #: [facility] [id number] Discharge Date: HISTORY AND PHYSICALCHIEF COMPLAINT: Trauma [...] any other blood products. [facility] [...] Dict: 08/11/2017/12:27 A/SUKHJINDER Delgadoate Trans: 08/11/2017 08:41 A/Izabela_JN:[id number] Normal [facility] LACTATE BLOODon 08-11-2017 Lactate 1.1 mmol/L Normal .5-2.2 [facility] Comment on above: Order Comment: No: D o not add to previous draw Performed By: #### 1 53, ####[facility] [place] [address], [facility] Lactate 1.3 mmol/L Normal .5-2.2 [facility] Comment on above: Performed By: #### 1 53, ####[facility] [place] [address], [facility] LIPASE BLOODon 08-11-2017 Lipase 13 Units/L Normal 11-82 [facility] Comment on above: Performed By: #### 0 0121, 42739 ####[facility] [place] [address], [place] LIVER BATTERYon 08-11-2017 Alanine aminotransferase (ALT) 18 U/L Normal 7-52 [facility] Comment on above: Order Comment: No: D o not add to previous draw Performed By: #### 1 53, ####[facility] [place] [address], [facility] Albumin 2.8 g/dL Low 3.5-5.7 [facility] Comment on above: Order Comment: No: D o not add to previous draw Performed By: #### 1 53, ####[facility] [place] [address], [facility] ALKALINE PHOSPH 36 IU/L Normal 34-104 [facility] Comment on above: Order Comment: No: D o not add to previous draw Performed By: #### 1 53, ####[facility] [place] [address], [place] Aspartate aminotransferase (AST) 30 U/L Normal 13-39 [facility] Comment on above: Order Comment: No: D o not add to previous draw Performed By: #### 1 53, ####[facility] [place] [address], [place] Bilirubin (direct) 0.2 mg/dL Normal 0.0-0.2 [facility] Comment on above: Order Comment: No: D o not add to previous draw Performed By: #### 1 53, ####[facility] [place] [address], [place] Bilirubin (total) 0.9 mg/dL Normal 0.3-1.0 [facility] Comment on above: Order Comment: No: D o not add to previous draw Performed By: #### 1 53, ####[facility]3000 [facility].[address] Protein 4.0 g/dL Low 6.0-8.3 [facility] Comment on above: Order Comment: No: D o not add to previous draw Performed By: #### 1 53, ####[facility]3000 [facility].[address] MAGNESIUM BLOODon 08-11-2017 Magnesium 1.4 mg/dL Low 1.9-2.7 [facility] Comment on above: Order Comment: No: D o not add to previous draw Performed By: #### 1 53, ####[facility]3000 [facility].[address] Operative Reporton 8 Operative Report MR#: [id number] [facility] Room #: SIC [id number] Discharge Date: Birthdate: 1945 OPERATIVE REPORTDATE OF SURGERY: 08/11/2017SURGEON: Alexander Olson M.D.ASSISTANTS: Aldo Villasenor M.D. PhD; ALEXANDER GutierrezREOPERATIVE DIAGNOSES: Traumatic splenic rupture.POSTOPERATIVE DIAGNOSIS: Traumatic splenic rupture.PROCEDURE: Splenectomy for trauma.INDICATION: This is a 72-year-old white [facility], [facility] [...] 08/11/2017/06:29 A/Aldo Villasenor MDDate Trans: 08/11/2017 03:54 P/mmoDN_JN:[id number] Normal [facility] PHOSPHORUS BLOODon 8 Phosphate 3.1 mg/dL Normal 2.5-5.0 [facility] Comment on above: Order Comment: No: D o not add to previous draw Performed By: #### 1 53, ####[facility] PLATELET APHERESIS 1 UNITon 08-11-2017 PRODUCT CODE 1 E7006 Normal [facility] Comment on above: Order Comment: Plt c ount at the time of order: 126 ;Indication: Platelet-inhibitingdrug therapy with invasive procedure/bleeding Performed By: #### 1 53, 56192 ####[facility] [place] [address], [facility] PRODUCT STATUS 1 PT Normal [facility] Comment on above: Order Comment: Plt c ount at the time of order: 126 ;Indication: Platelet-inhibitingdrug therapy with invasive procedure/bleeding Result Comment: Resu lt changed by IF on 08/11/2017 00:20. The previous value was XM.Result changed by IF on 08/12/2017 02:00. The previous value was IS. Performed By: #### 1 53, ####[facility] [place] [address], [facility] UNIT ABO 1 O Normal [facility] Comment on above: Order Comment: Plt c ount at the time of order: 126 ;Indication: Platelet-inhibitingdrug therapy with invasive procedure/bleeding Performed By: #### 1 53, ####[facility]3000 [facility].[address] UNIT ID 1 [id number] Normal [facility] Comment on above: Order Comment: Plt c ount at the time of order: 126 ;Indication: Platelet-inhibitingdrug therapy with invasive procedure/bleeding Performed By: #### 1 53, ####[facility] [facility] [place] [address], [facility] UNIT RH 1 Positive Normal [facility] Comment on above: Order Comment: Plt c ount at the time of order: 126 ;Indication: Platelet-inhibitingdrug therapy with invasive procedure/bleeding Performed By: #### 1 53, ####[facility] [place] [address], [facility] POC GLUCOSE LABon 08-11-2017 Glucose mass conc 100 mg/dL Normal 70-100 [facility] Comment on above: Performed By: #### 1 53, ####[facility] [place] [address], [facility] PORTABLE ABDOMENon 8 PORTABLE ABDOMEN [facility]nesoc[address] [place] [address] Sera ent Name: JUDITH KHAN : 1945Sex: FAge: Race: WhiteMRN: [id number]. Location: EMERPatient Status: IVisit #: [id number] Date: 08/11/2017 12:35:00 AMCompleted Date: 08/11/2017 01:07 AMRequesting Provider: ALEXANDER OLSON Attending Provider: ALEXANDER OLSON Report Copy To: Signs & Symptoms: Intra-op portable abdomenHistory: R/O foreign bodyComments: R/O foreign bodyExam: PORTABLE ABDOMENAccession #: [id number] ===PORTABLE ABDOMEN 08/11/2017 1:07 AM EST SIGNS [...] findings. Electronically signed by:Kristian Nascimento. Transcribed by: [email or web address], User Resident: NICOLETTE TOTHANElectronically Signed by: KRISTIAN NASCIMENTO @ 08/11/2017 12:16 PMI personally read this/these film(s) with this resident Normal [facility] Comment on above: Order Comment: R/O f oreign body PORTABLE CHEST 1 VIEWon PORTABLE CHEST 1 VIEW [facility] Nrmnbjwto[address] [place] [address] Sera ent Name: JUDITH KHAN : 1945Sex: FAge: Race: WhiteMRN: [id number]. Location: [id number] Status: IVisit #: [id number] Date: 08/11/2017 1:45:00 AMCompleted Date: 08/11/2017 02:13 AMRequesting Provider: CARMENZA WINTER Attending Provider: ALEXANDER OLSON Report Copy To: Signs & Symptoms: Post OPHistory: Patient history not availableComments: Check E.T. Position, also to chest OGT placementExam: PORTABLE CHEST 1 VIEWAccession #: [id number] ===PORTABLE CHEST 1 VIEW 08/11/2017 2:13 AM [...] findings. Electronically signed by:Kristian Nascimento. Transcribed by: [email or web address], User Resident: NICOLETTE TOTHANElectronically Signed by: KRISTIAN NASCIMENTO @ 08/11/2017 12:17 PMI personally read this/these film(s) with this resident Normal [facility] Comment on above: Order Comment: Check E.T. Position, also to chest OGT placement PROTHROMBIN TIMEon 8 INR Coag RelTime (PPP) 1.44 {INR} High 0.91-1.16 [facility] Comment on above: Order Comment: No: [...] OF ACTION, CLINICALEFFECTIVENESS, AND OPTIMAL THERAPEUTIC RANGE. [id number];108:231S-246S. Performed By: #### 1 53, ####[facility] Prothrombin time (PT) Coag time (PPP) 17.7 s High 12.3-14.8 [facility] Comment on above: Order Comment: No: D o not add to previous draw Result Comment: ALL RESULTS MUST BE INTERPRETED WITH RESPECT TO BLOOD DRAWING ARTIFACTOR DILUTION ERROR OF ANTICOAGULANT AT THE TIME OF SAMPLING. Performed By: #### 1 53, ####[facility]3000 [facility].[address] INR Coag RelTime (PPP) 1.22 {INR} High 0.91-1.16 [facility] Comment on above: Result Comment: ACCC P RECOMMENDED INR FOR WARFARIN THERAPY CONDITION INRPROPHYLAXIS OF VENOUS THROMBOSIS 2-3(HIGH-RISK SURGERY)TREATMENT OF VENOUS THROMBOSIS 2-3TREATMENT OF PULMONARY EMBOLISM 2-3PREVENTION OF SYSTEMIC EMBOLISM: 2-3 ACUTE MYOCARDIAL INFARCTION TISSUE HEART VALVES VALVULAR HEART DISEASE ATRIAL FIBRILLATION RECURRENT SYSTEMIC EMBOLISMMECHANICAL HEART VALVE 2.5-3.5 FROM: ORAL ANTICOAGULANTS. MECHANISM OF ACTION, CLINICALEFFECTIVENESS, AND OPTIMAL THERAPEUTIC RANGE. [id number];108:231S-246S. Performed By: #### 5 6101, 90158 ####[facility] [place] [address], [place] Prothrombin time (PT) Coag time (PPP) 15.5 s High 12.3-14.8 [facility] Comment on above: Result Comment: ALL RESULTS MUST BE INTERPRETED WITH RESPECT TO BLOOD DRAWING ARTIFACTOR DILUTION ERROR OF ANTICOAGULANT AT THE TIME OF SAMPLING. Performed By: #### 5 6101, 22949 ####[facility] [place] [address], [place] RBC'S 4 UNITSon 08-11-2017 CROSSMATCH INTERP 1 COMP Normal [facility] Comment on above: Performed By: #### 8 6004 ####[facility] [place] [address], [place] CROSSMATCH INTERP 2 COMP Normal [facility] Comment on above: Performed By: #### 8 6004 ####[facility] [place] [address], [place] CROSSMATCH INTERP 3 COMP Normal [facility] Comment on above: Performed By: #### 8 6004 ####[facility] [place] [address], [place] CROSSMATCH INTERP 4 COMP Normal [facility] Comment on above: Performed By: #### 8 6004 ####[facility] [place] [address], [place] PRODUCT CODE 1 E0686 Normal [facility] Comment on above: Performed By: #### 8 6004 ####[facility] [place] [address], [place] PRODUCT CODE 2 E0336 Normal [facility] Comment on above: Performed By: #### 8 6004 ####[facility] PRODUCT CODE 3 E0336 Normal [facility] Comment on above: Performed By: #### 8 6004 ####[facility] [place] [address].[place] [address], [facility] PRODUCT CODE 4 E0336 Normal [facility] Comment on above: Performed By: #### 8 6004 ####[address] PRODUCT STATUS 1 RE Normal [facility] Comment on above: Result Comment: Resu lt changed by IF on 08/11/2017 00:26. The previous value was XM.Result changed by IF on 08/11/2017 01:42. The previous value was IS.Result changed by IF on 08/14/2017 07:03. The previous value was XM. Performed By: #### 8 6004 ####[address] PRODUCT STATUS 2 PT Normal [facility] Comment on above: Result Comment: Resu lt changed by IF on 08/11/2017 00:26. The previous value was XM.Result changed by IF on 08/12/2017 02:00. The previous value was IS. Performed By: #### 8 6004 ####[address] PRODUCT STATUS 3 RE Normal [facility] Comment on above: Result Comment: Resu lt changed by IF on 08/12/2017 15:16. The previous value was XX. Performed By: #### 8 6004 ####[address] [place] [address], [facility] PRODUCT STATUS 4 RE Normal [facility] Comment on above: Result Comment: Resu lt changed by IF on 08/11/2017 00:26. The previous value was XM.Result changed by IF on 08/11/2017 01:42. The previous value was IS.Result changed by IF on 08/14/2017 07:03. The previous value was XM. Performed By: #### 8 6004 ####[facility] [place] [address], [facility] UNIT ABO 1 O Normal [facility] Comment on above: Performed By: #### 8 6004 ####[facility] [place] [address], [facility] UNIT ABO 2 O Normal [facility] Comment on above: Performed By: #### 8 [id number] ####[facility] [place] [address], [facility] UNIT ABO 3 O Normal [facility] Comment on above: Performed By: #### 8 6004 ####[facility] [place] [address], [facility] UNIT ABO 4 O Normal [facility] Comment on above: Performed By: #### 8 6004 ####[facility] [place] [address], [facility] UNIT ID 1 [id number] Normal [facility] Comment on above: Performed By: #### 8 6004 ####[facility] [place] [address], [facility] UNIT ID 2 [id number] Normal [facility] Comment on above: Performed By: #### 8 6004 ####[facility] [place] [address], [facility] UNIT ID 3 [id number] Normal [facility] Comment on above: Performed By: #### 8 6004 ####[facility] [place] [address], [facility] UNIT ID 4 [id number] Normal [facility] Comment on above: Performed By: #### 8 6004 ####[facility] [place] [address], [place] UNIT RH 1 Negative Normal [facility] Comment on above: Performed By: #### 8 6004 ####[facility] [place] [address], [place] UN[place] RH 2 Negative Normal [facility] Comment on above: Performed By: #### 8 6004 ####[facility] [place] [address], [place] UN[place] RH 3 Negative Normal [facility] Comment on above: Performed By: #### 8 6004 ####[facility] [place] [address], [place] UNIT RH 4 Negative Normal [facility] Comment on above: Performed By: #### 8 6004 ####[facility] [place] [address], [facility] SERUM TESTon 08-11 TEST Negative Normal [facility] Comment on above: Performed By: #### 4 6473 ####[facility] [place] [address], [facility] TYPE AND CROSSMATCHon 2017 ABO INTERPRETATION O Normal [facility] Comment on above: Performed By: #### 6 2594 ####[facility] [place] [address], [place] ANTIBODY SCREEN Negative Normal [facility] Comment on above: Performed By: #### 6 2594 ####[facility] [place] [address], [place] RH INTERPRETATION Negative Normal [facility] Comment on above: Performed By: #### 6 2594 ####[facility] [place] [address], [place] Vital Signs Date Time Vital Sign Value Performing Clinician Facility 06-23-2023 14:00-0500 [facility] 14:00-0500 Promise to Return [facility] 06-23-2023 13:00-0500 Hourly Rounding [facility] 06-23-2023 13:00-0500 Promise to Return [facility] 06-23-2023 12:00-0500 Hourly Rounding [facility] 06-23-2023 12:00-0500 Promise to Return [facility] 06-23-2023 11:22-0500 Heart rate 107 /min [facility] 06-23-2023 11:22-0500 SaO2% (BldA) [Mass fraction] 94 % [facility] 06-23-2023 11:21-0500 Diastolic blood pressure 82 mm[Hg] [facility] 06-23-2023 11:21-0500 Mean blood pressure 108 mm[Hg] [facility] 06-23-2023 11:21-0500 Systolic blood pressure 162 mm[Hg] [facility] 06-23-2023 11:20-0500 Body temperature 97.7 [degF] [facility] 06-23-2023 08:20-0500 SaO2% (BldA) [Mass fraction] 98 % [facility] 06-23-2023 07:19-0500 Heart rate 84 /min [facility] 06-23-2023 07:19-0500 SaO2% (BldA) [Mass fraction] 100 % [facility] 06-23-2023 07:18-0500 Body temperature 97.52 [degF] [facility] 06-23-2023 07:18-0500 Diastolic blood pressure 81 mm[Hg] [facility] 06-23-2023 07:18-0500 Mean blood pressure 99 mm[Hg] [facility] 06-23-2023 07:18-0500 Systolic blood pressure 137 mm[Hg] [facility] 06-23-2023 06:17-0500 Blood Pressure Location [facility] 06-23-2023 06:17-0500 Body temperature 97.52 [degF] [facility] 06-23-2023 06:17-0500 Diastolic blood pressure 74 mm[Hg] [facility] 06-23-2023 06:17-0500 Heart rate 99 /min [facility] 06-23-2023 06:17-0500 Respiratory rate 17 /min [facility] 06-23-2023 06:17-0500 Systolic blood pressure 159 mm[Hg] [facility] 06-23-2023 05:01-0500 Heart rate 102 /min [facility] 06-23-2023 05:01-0500 Mean blood pressure 98 mm[Hg] [facility] 06-23-2023 05:01-0500 Respiratory rate 19 /min [facility] 06-23-2023 04:30-0500 Mean blood pressure 95 mm[Hg] [facility] 06-23-2023 04:30-0500 Respiratory rate 16 /min [facility] 06-23-2023 03:00-0500 Mean blood pressure 121 mm[Hg] [facility] 06-23-2023 03:00-0500 Respiratory rate 20 /min [facility] 06-23-2023 02:43-0500 Respiratory rate 18 /min [facility] 06-23-2023 02:30-0500 Respiratory rate 18 /min [facility] 06-23-2023 01:40-0500 gluc 96 mg/dL [facility] 06-23-2023 01:40-0500 gluc Mela [facility] 06-23-2023 01:38-0500 gluc 96 mg/dL [facility] 06-23-2023 01:38-0500 gluc Mela [facility] 06-23-2023 01:37-0500 Heart rate 117 /min [facility] 05-15-2023 13:50-0500 Body height 167.64 cm MD Rodrick Sams Work Phone: [facility] 05-15-2023 13:50-0500 Body weight 57.15 kg MD Rodrick Sams Work Phone: [facility] Encounters Encounter Date Encounter Type Care Provider Facility Start: 07-16-2023 End: 07-16-2023 Emergency department patient visit Demarco Beaver Facility:[facility] Start: 07-06-2023 End: 07-06-2023 ambulatory COOPER ROWLEY [facility] Start: 06-23-2023 End: 06-23-2023 ambulatory Mela Espinal Facility:[facility] Start: 06-23-2023 End: 06-23-2023 Observation [facility] Start: 05-15-2023 End: 05-15-2023 ambulatory Cathie Reid Facility:[facility] Start: 05-15-2023 End: 05-15-2023 ambulatory MD Rodrick Sams Work Phone: [facility] Work Phone: Start: 05-15-2023 End: 05-15-2023 Patient encounter procedure MD Rodrick Sams Work Phone: [facility] [place] Work Phone: Start: 01-12-2023 End: 01-12-2023 ambulatory COOPER ROWLEY [facility] Start: 10-09-2022 End: 10-10-[address] RODRICK SAMS . Facility: Start: 07-19-2022 End: 07-19-2022 ambulatory STEPHENIE PRECIADO [facility] Start: 05-24-2022 End: 05-25-[address] RODRICK SAMS . Facility: Start: 05-08-2022 End: 05-10-2022 Evaluation and management of inpatient DR RODRICK SAMS . Facility: Start: 03-29-2022 End: 03-29-[address] MISAEL PEDRAZA . Facility: Start: 12-27-2021 End: 12-28-[address] RODRICK SAMS . Facility: Start: 08-13-2017 End: 08-14-2017 Ambulatory DEFAULT PHYSICIAN Facility:[facility] Start: 08-11-2017 End: 08-15-2017 Evaluation and management of inpatient REFERRED SELF Facility:[facility] Procedures Date Procedure Procedure Detail [...] NONAUT RED BLOOD CELLS IN PERIPH VEIN, [facility] SUPA Irving HEIDT Appendectomy Mela Gennari Cataract (morphologi c abnormality) Mela Gennari Hysterectomy Mela Gennari Splenectomy Mela Gennari Payers Date Payer Category Payer Medicare [id number] 2023 Self-pay [id number] 1958 Medicare [id number] 1958 Unknown [id number] 1945 Unknown [id number] 2.16.84 [id number] 1945 Unknown [id number] 2.16.84 [id number] 1945 Unknown [id number] 2.16.84 [id number] 1945 Unknown [id number] 2.16.84 [id number] 1945 Unknown [id number] 2.16.84 [id number] 1945 Unknown [id number] 2.16.8 [id number] 1945 Unknown [id number] 2.16.8 [id number] Medicare [id number] Unknown Unknown [id number] 2.16.8 [id number] Social History Date Type Detail Facility Tobacco smoking stat [facility] Unknown if ever smoked [facility] Work Phone: Start: 1945 Sex Assigned At Female [facility] Start: 03-04-2020 Tobacco smoking status Ex-smoker (fi nding) [facility] Sex Assigned At Female [facility] Functional Status Date Assessment Result Facility 06-23-2023 Functional Status N/A [facility] 06-23-2023 Functional Status [facility] Clinical Notes 08-04-2020 to 07-08-2023 Note Date [...] JOANNA Kauffman Within 1 to 2 weeks [facility] [place] [address] [place] [address]- Additional Instructions: Patient Education Weakness, Rhiz-tv-Geqd Urinary Tract Infection, Adult [facility] Comment on above: Result Comment: Elec tronically Signed By: MATTHEW HERRERA, Haile\.br\Date and Time Signed: 07/08/23 16:24 EST 07-06-2023 Note Hypertension is stab le and well controlled Continue all meds as prescribed- norvasc, lisinopril- hydrochlorothiazide, metoprolol [facility] 07-06-2023 Note Hiatal hernia with c ompression on Lt atrium noted on TTE Referral to general surgery ordered [facility] 07-06-2023 Note UTP CARDIOLOGY PROGR ESS NOTE HPI: Judith Khan is a 78 y.o. female here for review echocardiogram Patient here for 6 mo follow up fatigue, hypertension, and hyperlipidemia. Metoprolol was put on hold at last apt in Jan 2023 to see if fatigue improved. A few weeks later she was admitted to [facility] for chest pain. Had another echo in May 2023, which showed hiatal hernia. Daughter states was admitted to [facility] recently for TIA symptoms and daughter [...] Plt Count 355 (150-450) 10^3/uL Emergency Department [id number] [facility] Patient name: JUDITH KHAN MPV 11.2 (9.5-13.5) fL Neut % (Auto) 22.9 L (43.0-75.0) % Lymph % (Auto) 55.8 (20.5-60.0) % Garland % (Auto) 13.5 H (1.7-12.0) % Eos % (Auto) 6.4 (0.9-7.0) % Baso % (Auto) 1.3 (0.2-2.0) % Neut # (Auto) 1.9 (1.4-6.5) 10^3/uL Lymph # (Auto) 4.6 H (1.2-3.8) 10^3/uL Garland # (Auto) 1.1 H (0.3-0.8) 10^3/uL Eos [...] >60 (>=60) Est (more content not included)... [facility] 07-06-2023 Note Patient here for 6 m o follow up fatigue, hypertension, and hyperlipidemia. Metoprolol was put on hold at last apt in Jan 2023 to see if fatigue improved. A few weeks later she was admitted to [facility] for chest pain. Had another echo in May 2023, which showed hiatal hernia. Daughter states was admitted to [facility] recently for TIA symptoms and daughter states she was treated for UTI. She's still not taking metoprolol and feels less tired without it. She denies chest pain, SOB, lightheadedness/syncope, and palpitations. Review of Systems Constitutional: Positive for malaise/fatigue (improving). Musculoskeletal: Positive for arthritis, back pain and joint pain. Neurological: Positive for tremors. All other systems reviewed and are negative. [facility] 06-30-2023 Note Microbiology PROCEDURE: Blood Culture Charcoal [R1] SOURCE: Blood BODY SITE: Arm L COLLECTED DATE/TIME: 06/23/2023 01:59 EST RECEIVED DATE/TIME: 06/23/2023 02:53 EST START DATE/TIME: 06/23/2023 02:53 EST FREE TEXT SOURCE: Thea Stcay, Augie Sidhu M.D., Augie Charlton FINAL REPORTS Final Report [] Verified Date/Time: 06/30/2023 07:00 EST No growth at 7 days. Performing Locations R1: This test was performed at: [facility], [address] [place] [address], [address] [place] [address], [facility] Comment on above: Performed By: #### [id number] ####[facility] [id number] [place] [address] 06-30-2023 Note Microbiology PROCEDURE: Blood Culture Charcoal [...] Locations R1: This test was performed at: [facility], [address] [place] [address], [address] [place] [address], [facility] Comment on above: Performed By: #### [id number] #### [facility] [address] [place] [address] 06-24-2023 Note Chief Complaint weakness Reason for [...] says she had an open MRI in [place] within the past few months which she [...] but reportedly she has MRI images in [place] within the past few months that did [...] Medical History On (more content not included)... [facility] Comment on above: Result Comment: Elec tronically Signed By: Tony Fuentes DO\Date and Time Signed: 06/24/23 09:29 EST 06-23-2023 Hospital Discharge instructions Patient Education 06/23/2023 16:31:59 Weakness, Rbfb-ve-Vpch Weakness Weakness is a lack of strength. [...] about working with a physical therapist or operations trainer to help you get stronger. General instructions Take acnm-aqp-jgnnbvv and prescription medicines only as told by [...] provider. Document Revised: 04/30/2022 Document Reviewed: 04/30/2022 [employer] Patient Education 2022 [employer] 06/23/2023 16:31:55 Urinary Tract Infection, Adult Urinary [...] Treatment for this condition includes: Antibiotic medicine. Frwl-wds-ewjebkl medicines to treat discomfort. Drinking enough water [...] Follow these instructions at home: Medicines Take tdaw-jhl-nmkbyfc and prescription medicines only as told by [...] provider. Document Revised: 01/07/2021 Document Reviewed: 01/07/2021 [employer] Patient Education 2022 [employer] Follow Up Care 06/23/2023 01:35:45 With:Dani HERRERARamiro NEU Address: [place] [address] [place] [address]- When:1 to 2 weeks [facility] 06-23-2023 Note Chief Complaint states went to [...] out of bed to go the bathroom. [place] weak all over and just felt like [...] 01:55:00) Lymph Auto: 15.1 % (06/23/23 01:55:00) Garland Auto: 11.3 % (06/23/23 01:55:00) Eos Auto: 0.8 % (06/23/23 01:55:00) Basophil Auto: 0.4 % (06/23/23 01:55:00) Neutro Absolute: 10.5 E9/L High (06/23/23 01:55:00) Lymph Absolute: 2.2 E9/L (06/23/23 01:55:00) Garland Absolute: 1.6 E9/L High (06/23/23 01:55:00) Eos [...] 1.8 mg/dL (06/23/23 (more content not included)... [facility] Comment on above: Result Comment: Elec [...] dc 06/23 or 06/24. CRM to follow. [facility] Comment on above: Result Comment: Elec [...] but reportedly she has MRI images in [place] within the past few months that did [...] just had an MRI in May at [facility]. Consult Neurology PT Eval ordered [...] Blood Culture Charcoal CBC w/ Auto Diff Rye Stroke Scale Communication Order Physician to Nursing Continuous Pulse Oximetry CT Head or Brain w/o Contrast ECG 12 Lead Adult ED Cardiac Monitoring ED Physician consult Hospitalist for continued care eGFR Hepatic Function Panel Lactic Acid Magnesium Level NPO Diet Oxygen Therapy PT & PTT Rapid COVID Antigen ([facility]) Routine Capillary Glucose POC Saline Lock Insert Stroke Quality Measures Troponin 0 Hr. Troponin 3 Hr. Troponin 6 Hr. Troponin 9 Hr. TSH With T4fr Reflex UA With Cult Reflex Urine Culture Vital Signs XR Chest Single View Diagnostic Tests Pending * Blood Culture Charcoal 06/23/23 * Blood Culture Charcoal 06/23/23 * Urine Culture 06/23/23 [facility]01-13-2024 NotePT Evaluation done this date. Pt. with 20/24 on AM-PAC this date. She feels she is at her baseline at this time, Recommend she uses her FWW at home as needed. She may benefit from outpatient PT for her Parkinson's. No further acute PT needs.[facility] 01-12-2023 NoteContinue [facility]Un[facility]23 Note Hypertension is elevated in office most likely r/t white coat syndrome States b/p at home is typically 120's/70'[facility] 01-12-2023 NoteWill have pt hold metoprolol and see if her fatigue improves Continue to monitor b/p at home and call office for b/p increase greater than 130/80 or for any concerns.[facility]08-04-2023 Note Patient here for 6 mo [...] tremors. All other systems reviewed and are negative.[facility] 01-12-2023 NoteUTP CARDIOLOGY PROGRESS NOTE HPI: [...] statin RTC 3-6 months or earlier if [facility]2023 NoteCardiology Clinic Note Chief Complaint: New [...] history of COPD (chronic obstructive pulmonary disease) ([facility]), Hyperlipidemia, Hypertension, and Parkinson disease ([facility]). Surgical History She has a [...] months Radiology: XR chest 1 view Narrative: [facility] Department of Radiology [address] [place] [id number] (more content not included)...[facility]2023 NotePatient here for 2 mo follow up hypertension and hyperlipidemia. Says her SOB has resolved and she feels great. Denies chest pain. Review of Systems Neurological: Positive for tremors. All other systems reviewed and are negative.[facility] 08-04-2020 NotePatient Outreach ([employer]OV[employer]) BILLJUDITH ([id number]) 1945 F Date Time Provider Department 08/04/20 EMETERIO OSEGUERA During your visit today, we recorded the following information about you: Allergies As of Date: 08/04/2020 Noted Allergy Reaction ALEVE (NAPROXEN SODIUM) 07/02/2013 16 - Unknown SULFA (SULFONAMIDE ANTIBIOTICS) 07/02/2013 10 - Anaphylaxis Date Reviewed: 03/23/2020 Reviewed by: Ashley Stephens Ma - Fully Assessed Order(s):SARS-COVID VACCINE 1ST DOSE APPT [[id number]] Order #: [id number] FUTURE Prescriptions as of 08/04/2020 Sig: ASPIRIN [...] infecti*03/23/2020 Encounter Status:Closed by ANCELMO NASCIMENTO on 08/09/20[facility] Evaluation noteNo assessment information availableDayton Va Medical Center Work Phone: Hospital course Narrative No data available for this section [facility] No data available for this section [facility] Summary Purpose Family History No Family History [...] and content) DATE CREATED AUTHOR 11/30/2017 [facility] DATE CREATED AUTHOR AUTHOR'S ORGANIZ ATION 06/19/2021 [facility] DATE CREATED AUTHOR AUTHOR'S ORGANIZ ATION 10/13/2022 [facility] DATE CREATED AUTHOR AUTHOR'S ORGANIZ ATION 05/23/2023 [facility] DATE CREATED AUTHOR AUTHOR'S ORGANIZ ATION 07/07/2023 [facility] DATE CREATED AUTHOR AUTHOR'S ORGANIZ ATION 07/19/2023 [facility] Care Teams (unrecognized sec tion and [...] BE BASED ON THE PRIMARY CLINICAL RECORDS. [facility] [employer] [facility]. provides no warranty or guarantee of the accuracy or completeness of information in this document.
--- NOTE | 2023-08-10 08:17 | P.HP_ITS ---
H&P: HPI History of Present Illness Chief complaint: DIARRHEA Narrative: Patient was seen and evaluated in the office yesterday, 6-day history of diarrhea. No travel, no unusual foods, no other sick contacts, no pain, no bloody stools, just loose to watery. Overnight patient had continued diarrhea despite use of Levsin. Patient had near syncopal episode with ambulation. Presented to the emergency room found to have acute renal failure secondary to dehydration, baseline creatinine 1.73, 1.34 here, but is not 83.5% increase above baseline When I saw patient in ER, she was resting fairly comfortably, denies again pain. Mucous membranes are dry, admitted for rehydration and further testing of stools Review of Systems ROS Status of ROS 10 or more systems reviewed and unremark able except as noted in history and below [facility] Medical History (Updated 08/10/23 @ 06:48 by Mila Kaye MD) Hiatal hernia ?K44.9 - Diaphragmatic hernia without obstruction or gangrene (ICD-10) COPD (chronic obstructive pulmonary disease) ?J44.9 - Chronic obstructive pulmonary disease, unspecified (ICD-10) Parkinsons ?G20 - Parkinson's disease (ICD-10) Hypertension ?I10 - Essential (primary) hypertension (ICD-10) Surgical History History of appendectomy ?Z90.49 - Acquired absence of other specified parts of digestive tract (ICD- 10) H/O: hysterectomy ?Z90.710 - Acquired absence of both cervix and uterus (ICD-10) H/O splenectomy ?Z90.81 - Acquired absence of spleen (ICD-10) Family History Brother Family history of stroke Family history of hypertension Mother Family history of stroke Family history of hypertension Father Family history of cancer Social History Within the past year, how often did you have a drink containing alcohol: never Within the past year, how many standard drinks containing alcohol did you have on a typical day: 1 or 2 Within the past year, how often did you have six or more drinks on one occasion: never Total score: 0 Score interpretation: A score less than 3 is consistent with normal alcohol consumption. Smoking status: Former smoker Non-prescribed substance use: denies use Previous occupational history: retired Highest level of school completed/degree received: high school graduate Are you now , , , , never or living with a partner: In a typical week, how many times do you talk on the telephone with family, friends, or neighbors: 3 or more times per week How often do you get together with friends or relatives: 3 or more times per week How often do you attend latter-day or shinto services: 4 or more times per year Do you belong to any clubs or organizations such as latter-day groups unions, [employer] or athletic groups, or school groups: no Total score: 2 Score interpretation: A score of greater than or equal to 2 indicates the lowest level of social isolation. Little interest or pleasure in doing things: not at all Feeling down, depressed, or hopeless: not at all Feel stressed/tense/nervous/anxious/difficulty sleeping: not at all Gender Identity: female Meds Home Medications and Allergies Home Medications Medication Instructions Recorded Confirmed Type alprazolam 1 mg tablet 1.5 mg PO BEDTIME 02/08/23 08/10/23 History amlodipine 5 mg tablet 5 mg PO DAILY 02/08/23 08/10/23 History carbidopa 25 mg-levodopa 100 mg 1 tab PO QID 02/08/23 02/09/23 History tablet lisinopril 20 1 tab PO DAILY 02/08/23 08/10/23 History mg-hydrochlorothiazide 25 mg tablet potassium chloride 20 mEq 20 meq PO BID 02/08/23 08/10/23 History tablet,extended release(part/cryst) (Klor-Con M) pravastatin 20 mg tablet 20 mg PO DAILY 02/08/23 08/10/23 History ascorbic acid (vitamin C) 1,000 mg 1 g PO DAILY 07/30/23 08/10/23 History capsule cholecalciferol (vitamin D3) 125 125 mcg PO DAILY 07/30/23 08/10/23 History mcg (5,000 unit) capsule cyclobenzaprine 10 mg tablet 10 mg PO BID 07/30/23 08/10/23 History gabapentin 300 mg capsule 300 mg PO TID 07/30/23 08/10/23 History potassium chloride 20 mEq 20 meq PO BID 07/30/23 08/10/23 History tablet,extended release(part/cryst) (Klor-Con M) ropinirole 0.25 mg tablet 0.5 mg PO TID 07/30/23 08/10/23 History ropinirole 0.5 mg tablet 0.5 mg PO TID 07/30/23 07/30/23 History zinc gluconate 50 mg tablet 50 mg PO DAILY 07/30/23 08/10/23 History aspirin 81 mg chewable tablet 81 mg PO DAILY 08/10/23 08/10/23 History lutein 25 mg-zeaxanthin 5 mg 1 cap PO DAILY 08/10/23 08/10/23 History capsule rasagiline 1 mg tablet 1 mg PO DAILY 08/10/23 08/10/23 History Allergies Allergy/AdvReac Type Severity Reaction Status Date / Time Sulfa (Sulfonamide Allergy Unknown Verified 08/10/23 04:41 Antibiotics) Exam Constitutional Vital Signs, click to edit/add: Last Vital Signs Temp 97.4 F L 08/10/23 04:35 Pulse 87 08/10/23 06:29 Resp 12 08/10/23 06:29 BP 109/55 08/10/23 06:29 Pulse Ox 91 L 08/10/23 06:29 O2 Del Method Room Air 08/10/23 06:29 Documenting provider has reviewed patient's vital signs: yes Common normals: no apparent distress HENMT Common normals: oral mucous membranes not moist Respiratory Common normals: normal respiratory effort, no retractions and clear to auscultation bilaterally Auscultation: diminished lung sounds Cardio Common normals: regular rate, regular rhythm and no murmurs GI Common normals: Normal to inspection, nondistended, normoactive bowel sounds present, soft to palpation and non-tender (No rebound tenderness) Extremity Common normals: normal to inspection (Resting tremor) and full ROM Neuro Common normals: oriented x3, CN's II-XII intact bilaterally and moves all extremities Results Labs Labs: Short CBC 08/10/23 Range/Units 04:42 WBC 9.4 (4.0-11.0) 10^3/uL Hgb 13.5 (12.0-16.0) g/dL Hct 41.9 (36.0-48.0) % Plt Count 261 (150-450) 10^3/uL BMP 08/10/23 04:42 Sodium 138 Potassium 4.1 Chloride 104 Carbon Dioxide 25.9 BUN 30.0 H Creatinine 1.34 H Glucose 111 H Calcium 11.3 H Liver Function 08/10/23 Range/Units 04:42 Total Bilirubin 0.4 (0.2-1.0) mg/dL AST 20 (15-37) U/L ALT 18 (14-59) U/L Alkaline Phosphatase 84 (46-116) U/L Albumin 3.8 (3.4-5.0) g/dL Assessment and Plan Assessment and Plan (1) Acute diarrhea: (2) Acute kidney injury: (3) COPD (chronic obstructive pulmonary disease): (4) Parkinsons: (5) Hypertension: Plan Borderline tachycardia, borderline hypotension based on her normal systolic blood pressure in the 130s to 140s on office records, secondary to acute dehydration secondary to 1 weeks worth of diarrhea. Check stool studies, likely viral based on was going on in the community. Acute renal failure with a creatinine of 0.73 at baseline and 1.34 today which is an 83.5% increase above baseline. History of hypertension-will restart medications but hold for systolic blood pressure less than 120 Parkinson's-continue home medications Restless leg syndrome-continue with home medications COPD-stable, no active symptoms Generalized anxiety disorder-continue with home medications Place patient in observation status, better than 50% chance she will be improved tomorrow to baseline and possibly discharge. If creatinine remains elevated or diarrhea maintaining his pace of stools every 30 to 40 minutes, will need an additional hospital day and will change to inpatient status based on the 2 midnight rule for medically necessary treatment over 2 midnights
[2023-08-10 08:34] LABS: Erythrocyte Sedimentation Rate 6 mm/hr (<=30)
[2023-08-10 08:40] LABS: C Reactive Protein <0.50 mg/dL (<=0.50)
[2023-08-10] MEDS: LACTATED RINGER'S SOLUTION 1,000 ML 125 ML IV ×2 (09:38→16:10)
[2023-08-10] MEDS: HYOSCYAMINE SULFATE 0.125 MG TAB.SUBL 0.25 MG SL ×4 (09:40→20:25)
[2023-08-10 09:55] LABS: Adenovirus F 40/41 NOT DETECTED (NOT DETECTE); Astrovirus NOT DETECTED (NOT DETECTE); Campylobacter NOT DETECTED (NOT DETECTE); Cryptosporidium NOT DETECTED (NOT DETECTE); Cyclospora cayetanensis NOT DETECTED (NOT DETECTE); Entamoeba histolytica NOT DETECTED (NOT DETECTE); Enteroaggregative E.coli NOT DETECTED (NOT DETECTE); Enteropathogenic E.coli NOT DETECTED (NOT DETECTE); Enterotoxigenic E. coli NOT DETECTED (NOT DETECTE); Giardia lamblia NOT DETECTED (NOT DETECTE); Norovirus GI/GII NOT DETECTED (NOT DETECTE); Plesiomonas shigelloides NOT DETECTED (NOT DETECTE); Rotavirus A NOT DETECTED (NOT DETECTE); Salmonella NOT DETECTED (NOT DETECTE); Sapovirus NOT DETECTED (NOT DETECTE); Shiga-like toxin-producing E.C NOT DETECTED (NOT DETECTE); Shigella/Enteroinvasive E.coli NOT DETECTED (NOT DETECTE); Vibrio NOT DETECTED (NOT DETECTE); Vibrio cholerae NOT DETECTED (NOT DETECTE); Yersinia enterocolitica NOT DETECTED (NOT DETECTE)
[2023-08-10] MEDS: POTASSIUM CHLORIDE 10 MEQ ER TABLET 20 MEQ PO ×2 (11:16→20:26)
[2023-08-10] MEDS: ZINC GLUCONATE 50 MG TABLET PO (11:16)
[2023-08-10] MEDS: ASCORBIC ACID 500 MG TABLET 1000 MG PO (11:16)
[2023-08-10 12:12] LABS: Bilirubin Urine NEGATIVE (NEGATIVE); Blood Urine NEGATIVE (NEGATIVE); Clarity Urine CLEAR (CLEAR); Color Urine DK. YELLOW (YELLOW); Glucose Urine UA NEGATIVE (NEGATIVE); Ketones Urine TRACE mg/dL (NEGATIVE); Leukocyte Esterase Urine LARGE (NEGATIVE); Nitrite Urine POSITIVE (NEGATIVE); Protein Urine 30 mg/dL (NEG/TRACE); Specific Gravity Urine 1.025 (1.005-1.025); Urobilinogen Urine 0.2 EU/dL (0.2-1.0)
--- NOTE | 2023-08-10 12:28 | SWNOTE1 ---
SW met with pt to discuss dc needs. Pt lives at home with her daughter. Pt does not use any DME at home. She is active and she goes to outpt therapy. She voices this helps with her Parkinsons, her plan is to resume outpt. SW asked if therapy saw her here and she stated they came in earlier, but she asked if they could come back later. At this time pt voices no needs. SW to follow as needed. SW reviewed [facility] form with pt, she voiced understanding, no questions. Pt signed form, original given to pt.
[2023-08-10 12:32] LABS: Bacteria Urine TRACE #/HPF (NONE SEEN); Mucus Urine NONE SEEN (NONE SEEN); WBC Urine 20-50 #/HPF (NONE SEEN)
[2023-08-10 12:33] LABS: Calcium Oxalate Crystals Urine MODERATE; Cast Seen? SEEN #/LPF (NONE SEEN); Crystals Seen? Seen #/HPF (None Seen); Hyaline Casts Urine RARE; RBC Urine 0-2 #/HPF (0-2); Squamous Epithelial Cell Urine FEW #/LPF (NONE/RARE)
[2023-08-10 12:34] LABS: Urine Culture Indicated ALREADY ORDERED
[2023-08-10] MEDS: ROPINIROLE HCL 0.25 MG TABLET 0.5 MG PO ×2 (13:32→20:25)
[2023-08-10] MEDS: GABAPENTIN 300 MG CAPSULE PO ×2 (13:32→20:25)
[2023-08-10] MEDS: CEFTRIAXONE 1,000 MG in 0.9 % SODIUM CHLORIDE 50 ML 100 MG IV (14:59)
[2023-08-10] MEDS: CIPROFLOXACIN IN 5 % DEXTROSE 400 MG/200 ML PIGGYBACK 200 MG IV (16:11)
[2023-08-10] MEDS: ALPRAZOLAM 1 MG TABLET 1.5 MG PO (20:29)
[2023-08-10] MEDS: ATORVASTATIN CALCIUM 10 MG TABLET PO (21:56)
[2023-08-11 00:05] VITALS: BP 167/80; PULSE 81; RESP 20; TEMP 36.4; O2SAT 90
[2023-08-11] MEDS: LACTATED RINGER'S SOLUTION 1,000 ML 125 ML IV (00:17)
[2023-08-11 04:19] VITALS: BP 134/59; PULSE 82; RESP 16; TEMP 36.8; O2SAT 90
[2023-08-11] MEDS: CIPROFLOXACIN IN 5 % DEXTROSE 400 MG/200 ML PIGGYBACK 200 MG IV (04:26)
[2023-08-11] MEDS: HYOSCYAMINE SULFATE 0.125 MG TAB.SUBL 0.25 MG SL (04:34)
[2023-08-11] MEDS: GABAPENTIN 300 MG CAPSULE PO (04:34)
[2023-08-11] MEDS: ROPINIROLE HCL 0.25 MG TABLET 0.5 MG PO (04:34)
[2023-08-11 05:04] LABS: Basophils Absolute Auto 0.1 10^3/uL (0.0-0.1); Basophils Percent Auto 1.2 % (0.2-2.0); Eosinophils Absolute Auto 0.6 10^3/uL (0.0-0.7); Eosinophils Percent Auto 7.8 % (0.9-7.0); Hematocrit 37.5 % (36.0-48.0); Hemoglobin 12.2 g/dL (12.0-16.0); Immature Granulocytes Abs Auto 0.01 10^3/uL (0.00-0.03); Immature Granulocytes Pct Auto 0.1 % (0.0-0.5); Lymphocytes Absolute Auto 2.5 10^3/uL (1.2-3.8); Lymphocytes Percent Auto 32.3 % (20.5-60.0); Mean Corpuscular HGB Conc 32.5 g/dL (29.9-35.2); Mean Corpuscular Hemoglobin 31.1 pg (26.7-34.0); Mean Corpuscular Volume 95.7 fL (81.0-99.0); Mean Platelet Volume 11.5 fL (9.5-13.5); Monocytes Absolute Auto 0.9 10^3/uL (0.3-0.8); Monocytes Percent Auto 11.9 % (1.7-12.0); Neutrophils Absolute Auto 3.5 10^3/uL (1.4-6.5); Neutrophils Percent Auto 46.7 % (43.0-75.0); Platelet Count 259 10^3/uL (150-450); Red Blood Count 3.92 10^6/uL (4.20-5.40); White Blood Count 7.6 10^3/uL (4.0-11.0)
[2023-08-11 05:25] VITALS: O2SAT 91
[2023-08-11 05:43] LABS: Alanine Aminotransferase 15 U/L (14-59); Albumin Globulin Ratio 1.1; Alkaline Phosphatase 67 U/L (46-116); Anion Gap 12.9; Aspartate Amino Transferase 16 U/L (15-37); BUN Creatinine Ratio 27.7; Bilirubin Total 0.3 mg/dL (0.2-1.0); Calcium 9.8 mg/dL (8.5-10.1); Carbon Dioxide 26.5 mmol/L (21.0-32.0); Chloride 109 mmol/L (98-107); Estimated GFR (African America >60 (>=60); Estimated GFR (Non-African Ame >60 (>=60); Globulin 2.7 g/dL; Glucose 75 mg/dL (74-106); Potassium 3.4 mmol/L (3.5-5.1); Sodium 145 mmol/L (136-145); Total Protein 5.7 g/dL (6.4-8.2)
[2023-08-11 08:00] VITALS: BP 161/75; PULSE 92; RESP 18; TEMP 36.4; O2SAT 90
--- NOTE | 2023-08-11 09:55 | P.DS_ITS ---
DS: Providers Provider Date of admission: 08/10/23 07:57 Primary care physician: Kavon Leary MD Consults: 08/10/23 08:14 Physical Therapy Eval and Treat Routine Reason for consultation: Eval and Treat Has provider been notified: No DS: Diagnosis Discharge Diagnosis (1) Acute diarrhea: (2) Acute kidney injury: (3) COPD (chronic obstructive pulmonary disease): (4) Parkinsons: (5) Hypertension: DS: Summary Hospital Course Hospital Course: Patient was seen in the ER secondary to weakness, found to have acute renal failure, patient was admitted and placed on IV fluids. Her diarrhea is essentially resolved at this point. He did have some hypokalemia. But her creatinine is back to baseline. At this point she feels comfortable with going home. If she is ambulating well this morning she will be discharged home in improving condition. Medications see list. Follow-up with me in the office as needed Time Spent with Patient Time attestation: Total time spent providing and/or coordinating discharge services: Exam Constitutional Vital Signs, click to edit/add: Last Vital Signs Temp 97.6 F 08/11/23 08:00 Pulse 92 H 08/11/23 08:00 Resp 18 08/11/23 08:00 BP 161/75 H 08/11/23 08:00 Pulse Ox 90 L 08/11/23 08:00 O2 Del Method Room Air 08/11/23 08:00 Documenting provider has reviewed patient's vital signs: yes Common normals: no apparent distress HENMT Common normals: moist oral mucous membranes Respiratory Common normals: normal respiratory effort, no retractions and clear to auscultation bilaterally Auscultation: diminished lung sounds Cardio Common normals: regular rate, regular rhythm and no murmurs GI Common normals: Normal to inspection, nondistended, normoactive bowel sounds present, soft to palpation and non-tender (No rebound tenderness) Extremity Common normals: normal to inspection (Resting tremor) and full ROM Neuro Common normals: oriented x3, CN's II-XII intact bilaterally and moves all extremities DS: Data Data Completed and Pending Labs on day of discharge: Labs from last 24 hours 08/11/23 08/10/23 08/10/23 03:57 12:00 09:40 WBC 7.6 RBC 3.92 L Hgb 12.2 Hct 37.5 MCV 95.7 MCH 31.1 MCHC 32.5 RDW 14.0 Plt Count 259 MPV 11.5 Neut % (Auto) 46.7 Lymph % (Auto) 32.3 Sandoval % (Auto) 11.9 Eos % (Auto) 7.8 H Baso % (Auto) 1.2 Neut # (Auto) 3.5 Lymph # (Auto) 2.5 Sandoval # (Auto) 0.9 H Eos # (Auto) 0.6 Baso # (Auto) 0.1 Abs Immat Gran (auto) 0.01 Imm/Tot Granulo (auto) 0.1 Sodium 145 Potassium 3.4 L Chloride 109 H Carbon Dioxide 26.5 Anion Gap 12.9 BUN 23.0 H Creatinine 0.83 Est GFR ( Amer) >60 Est GFR (Non-Af Amer) >60 BUN/Creatinine Ratio 27.7 Glucose 75 Calcium 9.8 Total Bilirubin 0.3 AST 16 ALT 15 Alkaline Phosphatase 67 Total Protein 5.7 L Albumin 3.0 L Globulin 2.7 Albumin/Globulin Ratio 1.1 Urine Color Dk. yellow Urine Clarity Clear Urine pH 5.0 Ur Specific Christmas 1.025 Urine Protein 30 A Urine Glucose (UA) Negative Urine Ketones Trace A Urine Occult Blood Negative Urine Nitrite Positive A Urine Bilirubin Negative Urine Urobilinogen 0.2 Ur Leukocyte Esterase Large A Urine RBC 0-2 Urine WBC 20-50 A Ur Squamous Epith Cells Few A Urine Crystals Seen A Calcium Oxalate Crystal Moderate Urine Bacteria Trace A Urine Casts Seen A Hyaline Casts Rare Urine Mucus None seen Ur Culture Indicated? Already ordered Stl C. cayetanensis PCR Not detected Stool Rotavirus (PCR) Not detected Stool Adenovirus (PCR) Not detected Stool Astrovirus (PCR) Not detected Stool Campylobacter PCR Not detected Stool Cryptosporidium PCR Not detected St Sh/Enteroin Ecoli PCR Not detected Stl Enterotoxigenic E PCR Not detected Stool EPEC (PCR) Not detected Stl E. histolytica PCR Not detected Stool Giardia Lamblia PCR Not detected Stl P. shigelloides PCR Not detected Stool Salmonella PCR Not detected Stool Sapovirus (PCR) Not detected Stl Shiga-like Tx [address].enterocolitica PCR Not detected Stl Vibrio cholerae PCR Not detected Stl Enteroaggr Ecoli PCR Not detected Stl Norovirus GI/GII PCR Not detected C. difficile Toxin A&B Not detected Vibrio Culture Not detected Discharge Plan Discharge Disposition: Home, Self-Care Condition: Fair Discharge Medications: New ciprofloxacin HCl [Cipro] 500 mg tablet 500 mg PO BID Qty: 14 0RF Continued alprazolam 1 mg tablet 1.5 mg PO BEDTIME PRN (Reason: sleep) amlodipine 5 mg tablet 5 mg PO DAILY potassium chloride [Klor-Con M20] 20 mEq tablet,ER particles/crystals 20 meq PO BID pravastatin 20 mg tablet 20 mg PO DAILY ropinirole 0.25 mg tablet 0.5 mg PO TID ascorbic acid (vitamin C) 1,000 mg capsule 1 g PO DAILY cholecalciferol (vitamin D3) 125 mcg (5,000 unit) capsule 125 mcg PO DAILY zinc gluconate 50 mg tablet 50 mg PO DAILY cyclobenzaprine 10 mg tablet 10 mg PO BID PRN (Reason: muscle spasm) gabapentin 300 mg capsule 300 mg PO TID aspirin 81 mg tablet,chewable 81 mg PO DAILY lutein-zeaxanthin 25-5 mg capsule 1 cap PO DAILY rasagiline 1 mg tablet 1 mg PO DAILY multivitamin Tablet 1 tab PO DAILY Discontinued lisinopril-hydrochlorothiazide 20-25 mg tablet 1 tab PO DAILY Activity: resume usual activities as tolerated Diet: advance to your usual diet Patient Instructions: Ciprofloxacin (By mouth), Urinary Tract Infection in Older Adults (DC) Forms: Portal Instructions Follow Up Appointments: Call Dr. Abbasi office for follow up if symptoms worsen Discharge Date/Time: 08/11/23 11:15
[2023-08-11] MEDS: POTASSIUM CHLORIDE 10 MEQ ER TABLET 20 MEQ PO (10:16)
[2023-08-11] MEDS: CEFTRIAXONE 1,000 MG in 0.9 % SODIUM CHLORIDE 50 ML 100 MG IV (10:16)
[2023-08-11] MEDS: ASCORBIC ACID 500 MG TABLET 1000 MG PO (10:17)
[2023-08-11] MEDS: RASAGILINE 1 MG PO (10:17)
[2023-08-11] MEDS: ZINC GLUCONATE 50 MG TABLET PO (10:17)
--- NOTE | 2023-08-11 10:40 | PT.DAILY ---
Physical Therapy Daily Note PT Daily Note/Assess Start: 08/11/23 10:27 Freq: Status: Active Protocol: Document 08/11/23 10:28 [id number] (Rec: 08/11/23 10:40 [id number]) Physical Therapy Daily Note/Assessment Time In/Time Out Time In 07:52 Time Out 08:22 Pain In Pain Level 0 Pain Out Pain Level 0 Subjective Subjective Patient received supine in bed . Patient agreeable to participating with PT. Requests to use BSC. Therapeutic Exercise Time Therapeutic Exercise Minutes (minutes) 8 Therapeutic Exercise Units 1 Therapeutic Exercise Treatment Therapeutic Exercise Treatment Patient performed standing ther ex with RW for CATALINO LE marching, hip ABD and squats x 10 reps for strengthening. Verbal cues to increase DIANNE for safety and balance. Therapeutic Activity Time Therapeutic Activity Minutes (minutes) 21 Therapeutic Activity Units 1 Therapeutic Activity Treatment Bed Mobility Ability Contact Guard Assist Chair Transfer Ability Contact Guard Assist Therapeutic Activity Comments Patient performs functional movement slowly due to bradykinesia (PD) and has not had her PD meds. Sit to stand transfer to RW CGA +1. Patient ambulated 60 ft with RW with CGA to MIN A +1. Verbal cues to increase DIANNE for stability and to take BIG steps to increase stride length. Patient demonstrates L lateral lean when ambulating and unable to self correct with verbal cues. L turn requires MIN A +1 to perform secondary to LOB. Verbal cues for walker management when navigating turns. Patient seated on BSC and is modified I with use. Able to clean self. Patient returned to bed and required MIN A +1 to manage LE into bed . Worked on PWR stepping with bridging to improve bed mobility and to lifting LE. Able to perform bridges after 5 reps without A. Total Physical Therapy Time Total Therapy Minutes 29 Total Physical Therapy Units 2 Summary Daily Note Summary Patients functional movement is limited secondary to not receiving PD meds prior to PT. Patient is able to perform ther ex and FACT's with slow and purposeful movements when provided time to motor plan and carry out tasks. Patients stability during gait improves when base of support is increased. Patient would benefit from continued PT upon DC to address functional deficits.
[2023-08-13 15:08] LABS: Rotavirus Ag, EIA Negative (Negative)
--- NOTE | 2023-08-13 15:34 | CM.DCFOLLOWU ---
Person spoke with: Pt's daughter How are you feeling? She had endoscopy today and is doing well (pt had ulcer) How is your pain? No pain Did you understand your discharge instructions? Yes Do you have any questions about your discharge instructions? No Were you given any prescriptions at discharge? Yes Were you able to get your prescriptions filled? Yes Do you understand how to take your medications as ordered? Yes Do you have any questions about your follow up appointment and do you plan to keep your follow up appointment? No will f/u with Dr. Leary Is there anything else that you would like to discuss? No Questions/Comments/Concerns/Other:
== END 2023-08-11 11:15 | disposition home or self-care (01) ==
LOC: ER 06:48 → MS 08:00
PROVIDERS: Admitting Provider Family Medicine; Emergency Provider Emergency Medicine; PCP Family Medicine; Visit Provider Family Medicine
DX: N17.9 Acute kidney failure, unspecified (principal); E86.0 Dehydration; N39.0 Urinary tract infection, site not specified; E87.6 Hypokalemia; R00.0 Tachycardia, unspecified; I95.9 Hypotension, unspecified; G25.81 Restless legs syndrome; R19.7 Diarrhea, unspecified; I10 Essential (primary) hypertension; J44.9 Chronic obstructive pulmonary disease, unspecified; F41.1 Generalized anxiety disorder; G20.A1 Parkinson's disease without dyskinesia, without mention of fluctuations; Z79.899 Other long term (current) drug therapy; Z79.82 Long term (current) use of aspirin; Z90.49 Acquired absence of other specified parts of digestive tract; Z90.81 Acquired absence of spleen; Z90.710 Acquired absence of both cervix and uterus; Z87.891 Personal history of nicotine dependence
CPT/HCPCS: 0202U; 36415; 80053; 81001; 83605; 83690; 83735; 85007; 85025; 85027; 85652; 86140; 87040; 87086; 87425; 87493; 87507; 93005; 94667; 94761; 96361; 96365; 96366; 96367; 97110; 97161; 97530; 99285; G0378

== ENCOUNTER 2023-08-20 13:14 | Outpatient (OUT) | payer MEDICARE, OTHER, SELFPAY ==
--- OUTSIDE RECORDS SUMMARY | 2023-08-20 13:31 | XMS_ITS | CCD ---
Author Name Unknown Address [address] [facility] [address] [place] [address] Organization [facility] Care Team Providers Care Forepart Reducer Name Role Phone SELF, REFERRED Unavailable Unavailable SELF, REFERRED Unavailable Unavailable BRAMOS, ATHANASIOS Unavailable Unavailable SUPA MAY Unavailable Unavailable AK Unavailable Unavailable BRAMOS, ATHANASIOS Unavailable Unavailable AK Unavailable Unavailable SUPA MAY Unavailable Unavailable PHYSICIAN, [...] Unavailable LANDY SHERMAN Consulting Unavailable YULISSA TALBERT Unavailable SUPA LOZANO Consulting Unavailable SHAIKH Zoltan TOM Consulting Unavailable SUPA DEAN Consulting Unavailable FLAQUITA ., DR MENSAH Primary Care Unavailable ZIEBER, DR RAMIRO Gates Consulting Unavailable ALICIA CHRISTOPHER Attending Unavailable ALICIA CHRISTBINHER Admitting Unavailable BALJEET RAO Consulting Unavailable MALATHIY ., DR MENSAH Admitting Unavailable HOY ., DR MENSAH Attending Unavailable HOY ., DR MENSAH Consulting Unavailable HOY ., DR MENSAH Primary Care Unavailable HOY ., DR MENSAH Admjocelyn Unavailable HOY ., DR MENSAH Attending Unavailable HOY ., DR MENSAH Consulting Unavailable FLAQUITA ., DR MENSAH Primary Care Unavailable ZIEBER, DR RAMIRO Gates Consulting Unavailable MD Kavon Sams Primary Care Provider [phone] DIXIE Reid Attending Provider Kavon Sams Primary Care Physician Elian Quigley Unavailable Unavailable Mela Espinal Admitting Unavailable ALAHMAD, Alaa Attending Unavailable Westbrook, Ramiro Consulting Unavailable Westbrook, Ramiro Consulting Unavailable Westbrook, Ramiro Consulting Unavailable Westbrook, Ramiro Consulting Unavailable Westbrook, Ramiro Consulting Unavailable Westbrook, Ramiro Consulting Unavailable Westbrook, Ramiro Consulting Unavailable Westbrook, Ramiro Consulting Unavailable Westbrook, Ramiro Consulting Unavailable Demarco Beaver Attending Unavailable Andrae HERRERA, Rafa Nath Attending Unavailable Cathie Reid Attending Unavailable Kavon Sams Primary Care Unavailable Cathie Reid S Admitting Unavailable Cathie Reid Attending Unavailable Kavon Sams Primary Care Unavailable Cathie Reid Admitting Unavailable AMRIK, COOPER Attending Unavailable SHEEHAN, JIANLIN Referring Unavailable SHEEHAN, JIANLIN Admitting Unavailable SHEEHAN, JIANLIN Attending Unavailable AMRIK, COOPER Referring Unavailable SHEEHAN, JIANLIN Attending Unavailable AMRIK, COOPER Referring Unavailable AMRIK, COOPER Attending Unavailable Allergies Allergy Classification Reported Allergen(s) Allergy Type Date of Onset Reaction(s) Facility (4 sources) Sulfonamides (Antibiotic); 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: [SULFA (SULFONAMIDE ANTIBIOTICS)] Drug allergy (disorder) 4 [facility] Repository (1 source) Cephalexin Drug Allergy 2 [facility] Repository (2 sources) Sulfonamides (Antibiotic); 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: [sulfa drugs] Drug allergy Unknown (qualifier value) [facility] (1 source) Unable to Assess Drug allergy (disorder) 3 [facility] Repository Medications Current Medications Medication Drug Class(es) Dates [...] day(s), # 15 cap(s), Refills(s) 0, Pharmacy: [facility]/pharmacy #[id number], 167, cm, 06/23/23 1:52:00 EST, Height/Length Dosing, 56.3, kg, 06/23/23 1:52:00 EST, Weight Dosing Start Date: 06/23/23 Stop Date: 06/28/23 Status: Ordered ciprofloxacin 500 mg oral tablet (1 source) Quinolone Antimicrobial Start: 02-25-2020 Cipro 500 mg Tab See Instructions, Take 1 tab day prior to procedure and 1 tab day of procdure - afterwards, # 2 tab(s), Refills(s) 0, Pharmacy: [facility]/pharmacy #[id number], 167, cm, 02/10/20 14:06:00 EDT, [...] Classification Problem Date Documented Da te Episodic/Chronic Abdominal hernia (2 sources) Diaphragmatic hernia without obstruction or gangrene; 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: [Diaphragmatic hernia without obstruction or gangrene] Onset: 08-07-2023 Episodic Anxiety disorders (1 source) Anxiety disorder, unspecified; [...] 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: [UNSPECIFIED FALL, INITIAL ENCOUNTER] Onset: 08-11-2017 Gastroduodenal ulcer (except hemorrhage) (2 sources) Acute gastric ulcer without hemorrhage or perforation; 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: [Acute gastric ulcer without hemorrhage or perforation] Onset: 08-13-2023 Episodic Hypertension with complications and secondary hypertension (1 source) Hypertensive heart disease with heart failure; 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: [HTN HEART DISEASE W/HEART FAIL] Onset: 10-12-2022 Chronic Malaise and fatigue (2 sources) Weakness; [...] fluctuations] Onset: 06-23-2023 Chronic 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) 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 drugs; 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: [JAIL (CURRENT) USE OF ORAL HYPOGLYCEMIC DRUGS] Onset: [...] Onset: 05-24-2022 Episodic Other aftercare (2 sources) exterminator termite (current) use of aspirin; 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: [JAIL (CURRENT) USE OF ASPIRIN] Onset: 08-11-2017 Episodic Other aftercare (1 source) Other snf (current) drug therapy; 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: [OTH JAIL CURRENT DRUG THERAPY] Onset: 05-22-2022 Episodic Other [...] Test Name Value Interpretation Reference Range Facility MR head/brain wo/w conon MR head/brain wo/w con [facility] Main [place] [address] [place] [address] MRI Report Signed Patient: Judith Khan MR#: [id number] 320 : 1945 Acct:[id number] Age/Sex: 78 / F ADM Date: 08/14/23 Loc: [facility] Room: Type: [facility] Attending Dr: Cathie COLIN Copies to: DIXIE Eng Ordering Provider: DIXIE Eng Date of Service: 08/14/23 MR/MR head/brain wo/w con: Z86.73 MRI of the brain with and without IV contrast. Reason for exam: History of Parkinson's. Possible stroke. COMPARISON: Prior MRI brain 05/15/2023. Next TECHNIQUE: Multisequence, multiplanar images of the brain were performed with and without IV contrast. FINDINGS: No evidence of restriction diffusion on diffusion-weighted imaging. Cortical atrophy with moderate chronic microvascular ischemic changes grossly similar in distribution to the prior study given differences in scanners. Ventricular system appears unremarkable. 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 Midbrain, jeannie and medulla all appear unremarkable. Punctate area of T2 hyperintensity is seen involving the left cerebellar hemisphere possibly representing a small infarct, unchanged from prior study. Midline structures appear grossly unremarkable. Intraorbital contents appear grossly unremarkable. No air-fluid levels are seen within the paranasal sinuses. Postcontrast imaging demonstrates no suspicious abnormal enhancement. MR/MR head/brain wo/w con Impression: No acute intracranial abnormality. No significant change in brain findings compared to the 05/15/2023 study Impression dictated by: Ramsey Guerrero Jr., D.O.08/14/2023 3:44 PM Dictation Location: [place] [address] Transcribed By: [facility] 08/14/23 1544 Dictated By: Ramsey Guerrero Jr, DO 08/14/23 1536 Signed By: 08/14/23 [address] [facility] [address] ABDOMEN WO IV CONTRASTon 08-13-2023 CT ABDOMEN WO IV CONTRAST CT ABDOMEN WO IV CONTRAST 08/13/2023 11:02 AM CLINICAL INDICATIONS: Assessment by surgery of hiatal hernia. TECHNIQUE: Multidetector CT axial slices were obtained without IV contrast. Multiplanar reformats, MIP, volume rendered 3-D images were generated on a separate workstation and reviewed to further define anatomy and possible pathology. All CT scans at this facility use dose modulation, iterative reconstruction, and/or weight based dosing when appropriate to reduce radiation dose to as low as reasonably achievable COMPARISON: CT abdomen August 2017 FINDINGS: Lung bases: Centrilobular emphysema without acute abnormality. Bony structures: Age compatible degenerative change. ABDOMEN: Oral contrast administered opacifying stomach and proximal bowel. Stomach is moderately distended. No hiatal hernia. Liver, gallbladder, pancreas and adrenal glands show no indication of acute disease within the confines of a noncontrast study. Prior splenectomy. Right kidney demonstrates 7 mm calculus mid calyx. Mild hydronephrosis. Left kidney is within normal limits. Tortuous calcified abdominal aortic aneurysm. Greatest axial measurement 3.1 cm. IMPRESSION: *No evidence of hiatal hernia. Stomach is moderately distended. *Mild right hydronephrosis. 7 mm intrarenal calculus. *Chronic lung disease. Electronically signed: Ernie Guerin. Not Vldtd Invalid Interpretation Code [facility] Comment on above: Order Comment: With oral contrast OPNOTEon 08-13-2023 OPNOTE EGD (ESOPHAGOGASTRODUODENOSCOPY) Operative Note Date: 08/13/2023 Location: [facility] OR Name: Judith Khan, : 1945, Diagnosis Pre-op Diagnosis * Hiatal hernia [K44.9] Post-op Diagnosis * Chronic gastric ulcer without hemorrhage and without perforation [K25.7] Procedures EGD (ESOPHAGOGASTRODUODENOSCOPY) 37710 - [place] ESOPHAGOGASTRODUODENOSCOPY [facility] Surgeons * Verena Sheehan - Primary Procedure Summary Anesthesia: Monitor Anesthesia Care ASA: III Estimated Blood Loss: Minimal Total IV Fluids: 500 mL Drains: * None in log * Staff: Rn Picu: Jian Kat RN Scrub Person: Eva Zambrano CST Indications: Judith Khan is an 78 y.o. female who is having surgery for Hiatal hernia [K44.9]. Esophagogastroduodenoscopy was offered to the patient, informed consent was obtained. Procedure Details: The patient was seen in the preoperative area. The risks, benefits, complications, treatment options, non-operative alternatives, expected recovery and outcomes were discussed with the patient. The possibilities of reaction to medication, pulmonary aspiration, injury to surrounding structures, bleeding, recurrent infection, the need for additional procedures, failure to diagnose a condition, and creating a complication requiring transfusion or operation were discussed with the patient. The patient concurred with the proposed plan, giving informed consent. The site of surgery was properly noted/marked if necessary per policy. The patient has been actively warmed in preoperative area. Preoperative antibiotics are not indicated. Venous thrombosis prophylaxis have been ordered including bilateral sequential compression devices EGD NOTE Patient: Judith Khan : 1945 Facility: [facility] Referring/PCP: Kavon Sams MD Procedure: Esophagogastroduodenoscopy --diagnostic Date: 08/13/2023 Endoscopist: Verena Sheehan MD, MD Preoperative Diagnosis: 1. Hiatal hernia Postoperative Diagnosis: 1. Prepyloric gastric ulcer Anesthesia: MAC Complications: None Description of Procedure: Informed consent was obtained after explanation of the procedure including indications, description of the procedure, benefits and possible risks and complications of the procedure, and alternatives. Questions were answered. The patient's history was reviewed and a directed physical examination was performed prior to the procedure. Patient was monitored throughout the procedure with pulse oximetry and periodic assessment of vital signs. Patient was sedated as noted above. With the patient in the left lateral decubitus position, the Olympus videoendoscope was placed in the patient's mouth and under direct visualization passed into the esophagus. Visualization of the esophagus, stomach, and duodenum was performed during both introduction and withdrawal of the endoscope and retroflexed view of the proximal stomach was obtained. The scope was passed to the 2nd portion of the duodenum. The patient tolerated the procedure well and was taken to the recovery area in good condition. Findings:: Esophagus: normal. Stomach: abnormal: Prepyloric gastric ulcer 4 mm in diameter, without active bleeding, with blood clot . Retained food particles Duodenum: normal, retained food particles Recommendations: 1. -Follow up with me. [phone] pager [phone] Normal [facility] OPNOTE EGD (ESOPHAGOGASTRODUODENOSCOPY) Operative Note Date: 08/13/2023 Location: [facility] OR Name: Judith Khan, : 1945, Diagnosis Pre-op Diagnosis * Hiatal hernia [K44.9] Post-op Diagnosis * Chronic gastric ulcer without hemorrhage and without perforation [K25.7] Procedures EGD (ESOPHAGOGASTRODUODENOSCOPY) 40849 - [place] ESOPHAGOGASTRODUODENOSCOPY [facility] Surgeons * Verena Sheehan - Primary Procedure Summary Anesthesia: Monitor Anesthesia Care ASA: III Estimated Blood Loss: Minimal Total IV Fluids: 500 mL Drains: * None in log * Staff: Rn Picu: Jian Kat RN Scrub Person: Eva Zambrano CST Indications: Judith Khan is an 78 y.o. female who is having surgery for Hiatal hernia [K44.9]. Esophagogastroduodenoscopy was offered to the patient, informed consent was obtained. Procedure Details: The patient was seen in the preoperative area. The risks, benefits, complications, treatment options, non-operative alternatives, expected recovery and outcomes were discussed with the patient. The possibilities of reaction to medication, pulmonary aspiration, injury to surrounding structures, bleeding, recurrent infection, the need for additional procedures, failure to diagnose a condition, and creating a complication requiring transfusion or operation were discussed with the patient. The patient concurred with the proposed plan, giving informed consent. The site of surgery was properly noted/marked if necessary per policy. The patient has been actively warmed in preoperative area. Preoperative antibiotics are not indicated. Venous thrombosis prophylaxis have been ordered including bilateral sequential compression devices EGD NOTE Patient: Judith Khan : 1945 Facility: [facility] Referring/PCP: Kavon Sams MD Procedure: Esophagogastroduodenoscopy --diagnostic Date: 08/13/2023 Endoscopist: Verena Sheehan MD, MD Preoperative Diagnosis: 1. Hiatal hernia Postoperative Diagnosis: 1. Prepyloric gastric ulcer Anesthesia: MAC Complications: None Description of Procedure: Informed consent was obtained after explanation of the procedure including indications, description of the procedure, benefits and possible risks and complications of the procedure, and alternatives. Questions were answered. The patient's history was reviewed and a directed physical examination was performed prior to the procedure. Patient was monitored throughout the procedure with pulse oximetry and periodic assessment of vital signs. Patient was sedated as noted above. With the patient in the left lateral decubitus position, the Olympus videoendoscope was placed in the patient's mouth and under direct visualization passed into the esophagus. Visualization of the esophagus, stomach, and duodenum was performed during both introduction and withdrawal of the endoscope and retroflexed view of the proximal stomach was obtained. The scope was passed to the 2nd portion of the duodenum. The patient tolerated the procedure well and was taken to the recovery area in good condition. Findings:: Esophagus: normal. Stomach: abnormal: Prepyloric gastric ulcer 4 mm in diameter, without active bleeding, with blood clot . Retained food particles Duodenum: normal, retained food particles Recommendations: 1. -Follow up with me. 2. -PPIs [phone] pager [phone] Normal [facility] POCT GLUCOSE METER UNSOLICIT ED RESULTSon 08-13-2023 Glucose [Mass/Vol] 85 mg/dL Normal 70-105 [facility] Comment on above: Order Comment: Waive d Testing in the ED is performed under the ED CLIA certificate #[id number]. Result Comment: [facility] Performed By: #### L [id number] ####[facility] ([facility]AKER)[address] [place] [address] Office Visiton 08-07-2023 Follow-up visit [id number] Ira Khan 1945 F Date Provider Department Center 08/07/2023 454-VERENA SHEEHAN [facility] SURG [address] Family History Problem Relation Age of Onset Stroke Mother Stroke Brother Other Mother's Sister Coronary artery disease Mother's Sister Stroke Maternal Grandmother Family Status - Relation Status Age at Mother Brother Mother's Sister Maternal Grandmother Level of Service:12395 [place] OFFICE/OUTPATIENT NEW LOW MDM 30 MINUTES Reason for Visit and Comments: New Patient [632] - Judith is here as a new patient for hiatal hernia, s/p ecko Normal [facility] C Urineon 07-18-2023 Bacteria identified Cx Nom (U) Microbiology PROCEDURE: Urine Culture [R1] SOURCE: U CleanCatch BODY SITE: COLLECTED DATE/TIME: 07/16/2023 12:49 EST RECEIVED DATE/TIME: 07/16/2023 13:50 EST START DATE/TIME: 07/16/2023 13:50 EST FREE TEXT SOURCE: Demarco Beaver DO, DO, Demarco Mccord FINAL REPORTS Final Report [] Verified Date/Time: 07/18/2023 10:53 EST <10,000 cfu/ml Mixed skin contaminants Mixed nida (multiple species present) Performing Locations R1: This test was performed at: [facility], [address] [place] [address], [address]- , , Normal [facility] Comment on above: Performed By: #### 2 [id number], [id number] #### [facility] [address] [place] [address] BMPon 07-16-2023 Anion gap [Moles/Vol] 14 mmol/L Normal 6-16 [facility] Comment on above: Performed By: #### 2 780815, [id number] #### [facility] [address] [place] [address] BUN/Creat Ratio 22 No Units High 10-20 [facility] Comment on above: Performed By: #### 2 398074, [id number] #### [facility] [address] [place] [address] Calcium [Mass/Vol] 11.6 mg/dL High 8.9-11.1 [facility] Comment on above: Performed By: #### 2 560167, [id number] #### [facility] [address] [place] [address] Chloride [Moles/Vol] 105 mmol/L Normal 101-111 [facility] Comment on above: Performed By: #### 2 739344, [id number] #### [facility] [address] [place] [address] CO2 [Moles/Vol] 26 mmol/L Normal 21-31 [facility] Comment on above: Performed By: #### 2 555582, [id number] #### [facility] [address] [place] [address] Creatinine [Mass/Vol] 0.9 mg/dL Normal 0.5-1.3 [facility] Comment on above: Performed By: #### 2 778444, [id number] #### [facility] [address] [place] [address] Glucose [Mass/Vol] 87 mg/dL Normal 55-199 [facility] Comment on above: Performed By: #### 2 292971, [id number] #### [facility] [address] [place] [address] Potassium [Moles/Vol] 4.0 mmol/L Normal 3.5-5.3 [facility] Comment on above: Performed By: #### 2 165733, [id number] #### [facility] [address] [place] [address] Sodium [Moles/Vol] 141 mmol/L Normal 135-145 [facility] Comment on above: Performed By: #### 2 793849, [id number] #### [facility] [address] [place] [address] Urea nitrogen [Mass/Vol] 20 mg/dL Normal 5-21 [facility] Comment on above: Performed By: #### 2 452317, [id number] #### [facility] [address] [place] [address] CBC w/ Auto Diffon 4 Basophil Absolute 0.1 E9/L Normal 0.0-0.2 [facility] Comment on above: Performed By: #### 2 446123, [id number] #### [facility] [address] [place] [address] Basophils/100 WBC (Bld) 1.1 % Normal 0.0-2.0 [facility] Comment on above: Performed By: #### 2 825218, [id number] #### [facility] [address] [place] [address] Eos Absolute 0.2 E9/L Normal 0.0-0.5 [facility] Comment on above: Performed By: #### 2 280965, [id number] #### [facility] [address] [place] [address] Eosinophils/100 WBC (Bld) 1.7 % Normal 0.0-8.0 [facility] Comment on above: Performed By: #### 2 482051, [id number] #### [facility] [address] [place] [address] Erythrocyte distribution width (RBC) [Ratio] 13.5 % Normal 10.9-14.2 [facility] Comment on above: Performed By: #### 2 081106, [id number] #### [facility] [address] [place] [address] Hematocrit (Bld) [Volume fraction] 43.0 % Normal 34.0-46.0 [facility] Comment on above: Performed By: #### 2 546465, [id number] #### [facility] [address] [place] [address] Hemoglobin (Bld) [Mass/Vol] 14.3 g/dL Normal 12.0-16.0 [facility] Comment on above: Performed By: #### 2 661178, [id number] #### [facility] [address] [place] [address] Lymph Absolute 3.4 E9/L Normal 1.0-4.0 [facility] Comment on above: Performed By: #### 2 360298, [id number] #### [facility] [address] [place] [address] Lymphocytes/100 WBC (Bld) 38.0 % Normal 14.0-50.0 [facility] Comment on above: Performed By: #### 2 505903, [id number] #### [facility] [address] [place] [address] MCH (RBC) [Entitic mass] 30.9 pg Normal 27.0-34.0 [facility] Comment on above: Performed By: #### 2 863455, [id number] #### [facility] [address] [place] [address] MCHC (RBC) [Mass/Vol] 33.0 g/dL Normal 31.4-36.0 [facility] Comment on above: Performed By: #### 2 367601, [id number] #### [facility] [address] [place] [address] MCV (RBC) [Entitic vol] 93.5 fL Normal 80.0-100.0 [facility] Comment on above: Performed By: #### 2 949164, [id number] #### [facility] [address] [place] [address] Shoshone Absolute 1.2 E9/L High 0.2-1.0 [facility] Comment on above: Performed By: #### 2 248917, [id number] #### [facility] [address] [place] [address] Monocytes/100 WBC (Bld) 12.9 % Normal 4.0-14.0 [facility] Comment on above: Performed By: #### 2 910526, [id number] #### [facility] [address] [place] [address] Neutro Absolute 4.2 E9/L Normal 2.0-7.5 [facility] Comment on above: Performed By: #### 2 022418, [id number] #### [facility] [address] [place] [address] Neutro Auto 46.3 % Normal 36.0-75.0 [facility] Comment on above: Performed By: #### 2 502760, [id number] #### [facility] [address] [place] [address] Platelet 325.0 E9/L Normal 150.0-500. 0 [facility] Comment on above: Performed By: #### 2 322945, [id number] #### [facility] [address] [place] [address] Platelet mean volume (Bld) [Entitic vol] 9.3 fL Normal 6.4-10.8 [facility] Comment on above: Performed By: #### 2 245858, [id number] #### [facility] [address] [place] [address] RBC 4.6 E12/L Normal 4.3-5.9 [facility] Comment on above: Performed By: #### 2 306384, [id number] #### [facility] [address] [place] [address] WBC 9.0 E9/L Normal 4.0-11.0 [facility] Comment on above: Performed By: #### 2 976206, [id number] #### [facility] [address] [place] [address] Consent for Treatmenton Consent for Treatment [id number] Normal [facility] Discharge Instructionson Discharge Instructions [id number] Normal [facility] ED Clinical Summaryon 2023 ED Clinical Summary (Inserted Image. Jenni ble to display) [address] [address] ED Clinical Summary Person Information Name: JUDITH KHAN [place] Age: 78 Years : 1945 Sex: Female Language: Mexican PCP: Kavon Sams MD Marital Status: Visit Id: Visit [...] 07/16/2023 15:44:31 07/16/2023 15:44:31 07/16/2023 15:44:31 ADDRESS: [address] [place] [id number] PHYS DOC NOTES: MEDICAL INFORMATION: Prescriptions Given: [...] day of procdure - afterwards. Refills: 0. hydrochlorothiazide-lisinopr il (hydrochlorothiazide-lisinop ril 25 mg-20 mg Tab) 2 Tablets By [...] Instructions: Weakness Follow up: With: Address: When: Kavon Sams [address] [facility] [place] [address] Business (1) In 3 days 07/19/2023 DIAGNOSIS: Weakness Normal [facility] ED Note-Physicianon 07-16-19 ED Note-Physician Basic [...] prescription medications Follow-up With When Contact Information Kavon Sams In 3 days 07/19/[address] Business (1) Additional Instructions: Patient Education Weakness [...] made to ensure accuracy, however, inadvertently computerized cemetery warden mistakes may be present. Appropriate healthcare PPE [...] 50+ oral tablet, 1 tab(s), Oral, Daily hydrochlorothiazide-lisinopr il 25 mg-20 mg Tab, 2 tab(s), Oral, [...] 11:50:00) MC (more content not included)... Normal [facility] Comment on above: Result Comment: [...] Consider working with a physical therapist or quality review trainer who can develop an exercise plan to help you gain muscle strength. General instructions ? Take lube-paa-cfduczn and prescription medicines only as told by [...] Reviewed: 04/30/2022 Elsevier Patient Education ? 2022 [employer] Normal [facility] ED Patient Summaryon 024 ED Patient Summary (Inserted Image. Jenni ble to display) [address] [address] Patient Discharge Instructions Person Information Name: JUDITH KHAN Age: 78 Years Arrival Date: 07/16/2023 11:33:16 Discharge Diagnosis: Weakness Primary Care Physician: Kavon Sams MD Provider Information Primary Provider: Demarco Beaver DO [employer] Home Economist:Leighton Fernandes PA-C The exam and treatment you received in the Emergency Department were for an urgent problem and are not intended as complete care. It is important that you follow up with a doctor, nurse practitioner, or physician?s virtual assistant for advertisers for ongoing care. If your symptoms become worse or you do not improve as expected and you are unable to reach your usual health care provider, you should return to the Emergency Department. We are available 24 hours a day. JUDITH KHAN has been given the following list of patient education materials, prescriptions and follow-up instructions: Follow-up Instructions: With: Address: When: Kavon Sams [address] [place] [address], [facility] [place] [address] Business (1) In 3 days 07/19/2023 In the event that this physician does not participate in your insurance network, please consult with your insurance company to find a nearby participating provider. Patient Education Materials: Weakness A MESSAGE TO ALL PATIENTS REGARDING OPIOIDS PRESCRIPTION OPIOIDS: WHAT YOU NEED TO KNOW Prescription opioids can be used to help relieve hlxsvnuy-yx-kjzyhz pain and are often prescribed following a [...] guidance from the Food and Drug Administration (www.fda.gov/Drugs/Resources ForYou). ? Visit www.cdc.gov/drugoverdose to learn about the risks of opioids abuse and overdose. ? If you believe you may be struggling with addiction, tell your health foster care worker and ask for guidance or call [facility]?S National Helpline at 2-429-620-OVVO. p Source: US Department of Health a (more content not included)... Normal [facility] Troponin 0 Hr.on 07-16-2023 Troponin 21.20 pg/mL Normal 10.10-27.1 0 [facility] Comment on above: Result Comment: The 95% CI (Confidence Interval) PPV (Positive Predictive Value) for myocardial infarction in females is 38 pg/mL, in males 51 pg/mL. The results should be used in conjunction with clinical conditions of myocardial infarction. (Access High Sensitivity Troponin I Instructions For Use, Freepath, January 2018) Performed By: #### 2 [id number], [id number] #### [facility] [address] [place] [address] Troponin 3 Hr.on 07-16-2023 Troponin 19.60 pg/mL Normal 10.10-27.1 0 [facility] Comment on above: Result Comment: The 95% CI (Confidence Interval) PPV (Positive Predictive Value) for myocardial infarction in females is 38 pg/mL, in males 51 pg/mL. The results should be used in conjunction with clinical conditions of myocardial infarction. (Access High Sensitivity Troponin I Instructions For Use, Freepath, January 2018) Performed By: #### 1 [id number] #### [facility] [address] [place] [address] UA With Cult Reflexon 2023 Bacteria LM Ql (Urine sed) TRACE Normal Trace [facility] Comment on above: Performed By: #### 2 [id number], [id number] #### [facility] [address] [place] [address] Bilirubin Ql (U) Negative Normal Negative [facility] Comment on above: Performed By: #### 2 579294, [id number] #### [facility] [address] [place] [address] Clarity (U) CLEAR Normal Clear [facility] Comment on above: Performed By: #### 2 993860, [id number] #### [facility] [address] [place] [address] Color (U) YELLOW Normal Yellow [facility] Comment on above: Performed By: #### 2 219155, [id number] #### [facility] [address] [place] [address] Crystals LM Ql (Urine sed) Present Normal [facility] Comment on above: Performed By: #### 2 216223, [id number] #### [facility] [address] [place] [address] Epithelial cells.squamous LM.HPF (Urine sed) [#/Area] 0-2 Normal 0-2 [facility] Comment on above: Performed By: #### 2 284099, [id number] #### [facility] [address] [place] [address] Glucose Test strip (U) [Mass/Vol] Negative Normal Negative [facility] Comment on above: Performed By: #### 2 607842, [id number] #### [facility] [address] [place] [address] Hemoglobin Ql (U) Negative Normal Negative [facility] Comment on above: Performed By: #### 2 817121, [id number] #### [facility] [address] [place] [address] Ketones (U) [Mass/Vol] Negative Normal Negative [facility] Comment on above: Performed By: #### 2 333003, [id number] #### [facility] [address] [place] [address] Chadwick.plasma/Lithi um.RBC (Bld) [Mass ratio] 0-3 Normal 0-3 [facility] Comment on above: Performed By: #### 2 817746, [id number] #### [facility] [address] [place] [address] Nitrite Ql (U) Negative Normal Negative [facility] Comment on above: Performed By: #### 2 812038, [id number] #### [facility] [address] [place] [address] pH (U) 7.0 [pH] Invalid Interpretation Code 5.0-9.0 [facility] Comment on above: Performed By: #### 2 617998, [id number] #### [facility] [address] [place] [address] Protein (U) [Mass/Vol] Negative Normal Negative [facility] Comment on above: Performed By: #### 2 199206, [id number] #### [facility] [address] [place] [address] Specific gravity (U) [Rel density] 1.015 Invalid Interpretation Code 1.005-1.03 0 [facility] Comment on above: Performed By: #### 2 235448, [id number] #### [facility] [address] [place] [address] Type of Urine collection method Clean Catch Normal [facility] Comment on above: Performed By: #### 2 813705, [id number] #### [facility] [address] [place], [place] [address] Urobilinogen Qn (U) 0.2 {Phoebe'U}/dL Normal 0.0-1.0 [facility] Comment on above: Performed By: #### 2 459596, [id number] #### [facility] [address] [place] [address] WBC Auto Ql (U) 1+ Abnormal Negative [facility] Comment on above: Performed By: #### 2 626145, [id number] #### [facility] [address] [place] [address] WBC LM.HPF (Urine sed) [#/Area] 0-5 Normal 0-5 [facility] Comment on above: Performed By: #### 2 471453, [id number] #### [facility] [address] [place] [address] eGFRon 07-16-2023 eGFR 66 mL/min/1.73 m2 Normal >=59 [facility] Comment on above: Order Comment: Order added by Discern Expert. Performed By: #### 2 704933, [id number] #### [facility] [address] [place] [address] [place] [address] Office Visiton 07-06-2023 Follow-up visit [id number] BillIra raffy Davis 1945 F Date Provider Department Center 07/06/2023 COOPER SORIA Mary Kay Mckeon Family History Problem Relation Age of Onset Stroke Mother Stroke Brother Other Mother's Sister Coronary artery disease Mother's Sister Stroke Maternal Grandmother Family Status - Relation Status Age at Mother Brother Mother's Sister Maternal Grandmother Level of Service:27382 [place] OFFICE/OUTPATIENT ESTABLISHED MOD MDM 30 MIN Normal [facility] C Urineon 06-25-2023 Bacteria identified Cx Nom (U) Microbiology PROCEDURE: Urine Culture [R1] SOURCE: U Cath BODY SITE: COLLECTED DATE/TIME: 06/23/2023 03:01 EST RECEIVED DATE/TIME: 06/23/2023 05:52 EST START DATE/TIME: 06/23/2023 05:52 EST FREE TEXT SOURCE: Elizabeth Sidhu M.D., Augie Sidhu M.D., Augie Charlton FINAL REPORTS Final Report [] Verified Date/Time: 06/25/2023 10:38 EST 25,000 cfu/ml Pseudomonas aeruginosa SUSCEPTIBILITY RESULTS LEGEND: S=Susceptible, N/R=Not Reported, Blank=Data not available, [...] Locations R1: This test was performed at: [facility], [address] [place] [address], [address] , , Normal [facility] Comment on above: Performed By: #### 1 5181999, [id number] #### [facility] [address] [place] [address] UA With Cult Reflexon 2023 UA Spec Desc Catheter Normal [facility] Comment on above: Result Comment: Mini cath specimen Performed By: #### 1 8446058, [id number] #### [facility] [address] [place] [address] Discharge Instructionson Discharge Instructions [id number] Normal [facility] Message from Medicareon 06-11 Message from Medicare [id number] Normal [facility] Auto Diffon 06-23-2023 Basophils/100 WBC (Bld) 0.4 % Normal 0.0-2.0 [facility] Comment on above: Order Comment: Order Added by Discern Expert. Performed By: #### 2 178876, [id number] #### [facility] [address] [place] [address] Basophils/Leukocytes Auto (Bld) [Pure # fraction] 0.1 E9/L Normal 0.0-0.2 [facility] Comment on above: Order Comment: Order Added by Discern Expert. Performed By: #### 2 402749, [id number] #### [facility] [address] [place] [address] Eosinophils/100 WBC (Bld) 0.8 % Normal 0.0-8.0 [facility] Comment on above: Order Comment: Order Added by Discern Expert. Performed By: #### 2 328091, [id number] #### [facility] [address] [place] [address] Eosinophils/Leukocyt es Auto (Bld) [Pure # fraction] 0.1 E9/L Normal 0.0-0.5 [facility] Comment on above: Order Comment: Order Added by Discern Expert. Performed By: #### 2 791218, [id number] #### [facility] [address] [place] [address] Lymphocytes/100 WBC (Bld) 15.1 % Normal 14.0-50.0 [facility] Comment on above: Order Comment: Order Added by Discern Expert. Performed By: #### 2 408687, [id number] #### [facility] [address] [place] [address] Lymphocytes/Leukocyt es Auto (Bld) [Pure # fraction] 2.2 E9/L Normal 1.0-4.0 [facility] Comment on above: Order Comment: Order Added by Discern Expert. Performed By: #### 2 695594, [id number] #### [facility] [address] [place] [address] Monocytes/100 WBC (Bld) 11.3 % Normal 4.0-14.0 [facility] Comment on above: Order Comment: Order Added by Discern Expert. Performed By: #### 2 650284, [id number] #### [facility] [address] [place] [address] Monocytes/Leukocytes Auto (Bld) [Pure # fraction] 1.6 E9/L High 0.2-1.0 [facility] Comment on above: Order Comment: Order Added by Discern Expert. Performed By: #### 2 994985, [id number] #### [facility] [address] [place] [address] Neutrophils/100 WBC (Bld) 72.4 % Normal 36.0-75.0 [facility] Comment on above: Order Comment: Order Added by Discern Expert. Performed By: #### 2 906824, [id number] #### [facility] [address] [place] [address] Neutrophils/Leukocyt es Auto (Bld) [Pure # fraction] 10.5 E9/L High 2.0-7.5 [facility] Comment on above: Order Comment: Order Added by Discern Expert. Performed By: #### 2 974934, [id number] #### [facility] [address] [place] [address] BMPon 06-23-2023 Anion gap [Moles/Vol] 13 mmol/L Normal 6-16 [facility] Comment on above: Performed By: #### 2 293323, [id number] #### [facility] [address] [place] [address] BUN/Creat Ratio 20 No Units Normal 10-20 [facility] Comment on above: Performed By: #### 2 664373, [id number] #### [facility] [address] [place] [address] Calcium [Mass/Vol] 10.7 mg/dL Normal 8.9-11.1 [facility] Comment on above: Performed By: #### 2 100524, [id number] #### [facility] [address] [place] [address] Chloride [Moles/Vol] 103 mmol/L Normal 101-111 [facility] Comment on above: Performed By: #### 2 142686, [id number] #### [facility] [address] [place] [address] CO2 [Moles/Vol] 25 mmol/L Normal 21-31 [facility] Comment on above: Performed By: #### 2 086428, [id number] #### [facility] [address] [place] [address] Creatinine [Mass/Vol] 0.9 mg/dL Normal 0.5-1.3 [facility] Comment on above: Performed By: #### 2 238497, [id number] #### [facility] [address] [place] [address] Glucose [Mass/Vol] 98 mg/dL Normal 55-199 [facility] Comment on above: Performed By: #### 2 184776, [id number] #### [facility] [address] [place] [address] Potassium [Moles/Vol] 3.5 mmol/L Normal 3.5-5.3 [facility] Comment on above: Performed By: #### 2 448849, [id number] #### [facility] [address] [place] [address] Sodium [Moles/Vol] 137 mmol/L Normal 135-145 [facility] Comment on above: Performed By: #### 2 606101, [id number] #### [facility] [address] [place] [address] Urea nitrogen [Mass/Vol] 18 mg/dL Normal 5-21 [facility] Comment on above: Performed By: #### 2 195091, [id number] #### [facility] [address] [place] [address] CBC w/ Auto Diffon 4 Erythrocyte distribution width (RBC) [Ratio] 13.6 % Normal 10.9-14.2 [facility] Comment on above: Performed By: #### 2 947832, [id number] #### [facility] [address] [place] [address] Hematocrit (Bld) [Volume fraction] 40.9 % Normal 34.0-46.0 [facility] Comment on above: Performed By: #### 2 239544, [id number] #### [facility] [address] [place] [address] Hemoglobin (Bld) [Mass/Vol] 13.7 g/dL Normal 12.0-16.0 [facility] Comment on above: Performed By: #### 2 041744, [id number] #### [facility] [address] [place] [address] MCH (RBC) [Entitic mass] 30.8 pg Normal 27.0-34.0 [facility] Comment on above: Performed By: #### 2 185118, [id number] #### [facility] [address] [place] [address] MCHC (RBC) [Mass/Vol] 33.4 g/dL Normal 31.4-36.0 [facility] Comment on above: Performed By: #### 2 637731, [id number] #### [facility] [address] [place] [address] MCV (RBC) [Entitic vol] 92.2 fL Normal 80.0-100.0 [facility] Comment on above: Performed By: #### 2 907235, [id number] #### [facility] [address] [place] [address] Platelet mean volume (Bld) [Entitic vol] 9.9 fL Normal 6.4-10.8 [facility] Comment on above: Performed By: #### 2 967483, [id number] #### [facility] [address] [place] [address] Platelets (Bld) [#/Vol] 301.0 E9/L Normal 150.0-500. 0 [facility] Comment on above: Performed By: #### 2 842155, [id number] #### [facility] [address] [place] [address] RBC (Bld) [#/Vol] 4.4 E12/L Normal 4.3-5.9 [facility] Comment on above: Performed By: #### 2 208321, [id number] #### [facility] [address] [place] [address] WBC corrected for nucl RBC Auto (Bld) [#/Vol] 14.5 E9/L High 4.0-11.0 [facility] Comment on above: Performed By: #### 2 767396, [id number] #### [facility] [address] [place] [address] CHEMISTRYOrdered By: SYSTEM SYSTEM on 06-23-2023 Troponin [...] High Sensitivity Troponin I Instructions For Use, Freepath, January 2018) Troponin 183.20 pg/mL Invalid Interpretation [...] High Sensitivity Troponin I Instructions For Use, Freepath, January 2018) Troponin 116.80 pg/mL Invalid Interpretation [...] Instructions For Use, Jacques Ceci, January 2018) Lactic Acid Lvl 1.1 mmol/L Normal 0.5 - 2.2 mmol/L Remisol Chem Albumin [Mass/Vol] 4.1 g/dL Normal 3.3 - 5.0 gm/dL Rem[facility] Chem Albumin/Globulin [Mass ratio] 1.7 {ratio} Normal 1.1 - 2.2 [facility] Alk Phos 80 [iU]/d Normal 21 - 98 Int._Unit/ L [facility] Chem ALT 10 [iU]/d Normal 6 - 46 Int._Unit/ L [facility] Anion gap [Moles/Vol] 13 mmol/L Normal 6 - 16 mEq/L [facility] AST 16 [iU]/d Normal 5 - 43 Int._Unit/ L [facility] Bili Direct 0.1 mg/dL Normal [...] mg/dL [facility] Chem eGFR mL/min/1.73 m2 Normal >=59mL/min /1.73 m2 [facility] Chem Globulin (S) [Mass/Vol] 2.4 [...] 96 mg/dL Normal 55 - 99 mg/dL [facility] POC Subsection Comment on above: Result Comment: Bonnie jamil RN/ POC Device SN [id number] Invalid Interpretation Code [facility] POC Subsection POC User ID [id number] 1 Invalid Interpretation Code [facility] POC Subsection POC Username JOSH GERONIMO Invalid Interpretation Code [facility] POC Subsection COAGULATIONOrdered By: Hoang Chris on 06-23-2023 aPTT Coag (PPP) [Time] 30.4 s Normal 25.1 - 36.5 second(s) [facility] Auto Coag Comment on above: Interpretive Data: [...] the same coagulation reagent and instrumentation as [facility]. Currently there are no coagulation studies available worldwide for children to 14 days, and no normal ranges. Heparin therapeutic range (represented by Anti-Factor Xa activity of 0.2 - 0.4 U/mL) corresponds to PTT of 56.6 - 109.0 sec. INR Coag (PPP) [Relative time] 1.0 {INR} Invalid Interpretation Code [facility] Auto Coag Comment on above: Interpretive Data: I NR results are specifically intended to assess patients stabilized on long-term Anticoagulation therapy suggested INR s Less Intensive Anticoagulation 2.0 3.0 Conventional Range 3.0 4.5 PT Coag (PPP) [Time] 11.7 s Normal 9.4 - 1 2.5 second(s) [facility] Auto Coag Comment on above: Interpretive Data: [...] the same coagulation reagent and instrumentation as [facility]. Currently there are no coagulation studies available [...] Technologist: YOLY Technical Comments Contrast: None Normal [facility] Capillary Glucose POCon 06-11 Glucose [Mass/Vol] 96 mg/dL Normal 55-99 [facility] Comment on above: Result Comment: Bonnie jamil RN/ Performed By: #### 2 [id number] #### [facility] [address] [place] [address] Consent for Treatmenton 06-11 Consent for Treatment [id number] Normal [facility] Discharge Note-Nursingon Discharge Note-Nursing JUDITH KHAN [...] oral tablet) ciprofloxacin (Cipro 500 mg Tab) hydrochlorothiazide-lisinopr il (hydrochlorothiazide-lisinop ril 25 mg-20 mg Tab) multivitamin with minerals [...] Doctor Event Name Event Result Pharmacy Information [facility] [place] New Follow Up Appointments after Discharge Follow Up with Dani HERRERA, JOANNA Kauffman When: Within 1 to 2 weeks Where: [facility] [employer] [place] [address]- Medications What How Much When Instructions Next [...] procdure - afterwards NEEDED FOR PROCEDURE Unchanged hydrochlorothiazide-lisinopr il (hydrochlorothiazide-lisinop ril 25 mg-20 mg Tab) 2 Tablets By [...] 4.4 E12/L (06/23/23 01:55:00) BUN: 18 mg/dL (06/23/23:55:00) HGB: 13.7 gm/dL (06/23/23:55:00) Creatinine: 0.9 mg/dL (06/23/23:55:00) Hct: 40.9 % (06/23/23:55:00) BUN/Creat Ratio: 20 (06/23/23 01:55:00) MCV: 92.2 fL (06/23/23:55:00) Sodium Lvl: 137 mmol/L (06/23/23:55:00) MCH: 30.8 pg (06/23/23:55:00) Potassium Lvl: 3.5 mmol/L (06/23/23:55:00) MCHC: 33.4 gm/dL (06/23/23:55:00) Chloride: 103 mmol/L (06/23/23:55:00) RDW: 13.6 % (06/23/23:55:00) CO2: 25 mmol/L (06/23/23:55:00) Platelet: 301 E9/L (06/23/23:55:00) AGAP: 13 mEq/L (06/23/23:55:00) MPV: 9.9 fL (06/23/23:55:00) Calcium Lvl: 10.7 mg/dL (06/23/23:55:00) Allergies sulfa drugs (Unknown) Problems Ongoing - [...] days a (more content not included)... Normal [facility] ED Clinical Summaryon 2023 ED Clinical Summary (Inserted Image. Jenni ble to display) [address] [address] ED Clinical Summary Person Information Name: JUDITH KHAN [facility] Age: 78 Years : 1945 Sex: Female Language: Mexican PCP: Kavon Sams MD Marital Status: Visit Id: Visit Reason: Potential stroke; POSS STROKE Speciality: Acuity: 2 Enc Type: Observation Med Service: Emergency Arrival: 06/23/2023 01:35:17 Discharge: LOS: 000 03:53 Checkin: 06/23/2023 01:35:17 Checkout: 06/23/2023 05:28:48 Dispo Type: Admitted as IP to this [facility] EVENTS: Event Name Event Status [...] 04:30:21 Meds Admin Request 06/23/2023 04:30:49 ADDRESS: [address] [place] [phone] PHYS DOC NOTES: MEDICAL INFORMATION: Prescriptions Given: [...] day of procdure - afterwards. Refills: 0. hydrochlorothiazide-lisinopr il (hydrochlorothiazide-lisinop ril 25 mg-20 mg Tab) 2 Tablets By [...] 4:Elevated troponin; 5:Hypertension; 6:High cholesterol; 7:Parkinsons Normal [facility] ED Note-Physicianon 06-23-19 ED Note-Physician Basic [...] both correctly = 0 Open and close eyes/surgeon/president release hand: Obeys both correctly = 0 [...] and Complexity of Problems Differential Diagnosis: [] [facility] Data External documents reviewed: [] My [...] blood chem (more content not included)... Normal [facility] Comment on above: Result Comment: Elec tronically Signed By: Thea Stacy, Augie Tucker.andreia\Date and Time Signed: 01/13/24 04:21 EST ED Patient Education Noteon 06-23-2023 ED Patient Education Note Normal [facility] ED Patient Summaryon 024 ED Patient Summary (Inserted Image. Jenni ble to display) [address] [address] Patient Discharge Instructions Person Information Name: JUDITH KHAN Age: 78 Years Arrival Date: 06/23/2023 01:35:17 Discharge Diagnosis: 1:Right sided weakness; 2:Hypoxia; 3:Urinary tract infection; 4:Elevated troponin; 5:Hypertension; 6:High cholesterol; 7:Parkinsons Primary Care Physician: Kavon Sams MD Provider Information Primary Provider: Augie Sidhu M.D. [employer] Home Economist:None The exam and treatment you received in the Emergency Department were for an urgent problem and are not intended as complete care. It is important that you follow up with a doctor, nurse practitioner, or physician?s virtual assistant for advertisers for ongoing care. If your symptoms become [...] opioids can be used to help relieve eibxpdhx-dy-iueyqb pain and are often prescribed following a [...] guidance from the Food and Drug Administration (www.fda.gov/Drugs/Resources ForYou). ? Visit www.cdc.gov/drugoverdose to learn about the risks of opioids abuse and overdose. ? If you believe you may be struggling with addiction, tell your health foster care worker and ask for guidance or call [employer]?S National Helpline at 8-796-600-OHRS. v Source: US Department of Health and Human Services/Center for Disease (more content not included)... Normal [facility] HEMATOLOGYOrdered By: SYSTEM SYSTEM on 06-23-2023 [...] 33.4 g/dL Normal 31.4 - 36.0 gm/dL FT HemeAutoSS MCV (RBC) [Entitic vol] 92.2 fL Normal 80.0 - 100.0 fL FT HemeAutoSS Platelet mean volume (Bld) [Entitic vol] 9.9 fL Normal 6.4 - 10.8 fL FT HemeAutoSS Platelets (Bld) [#/Vol] 301.0 E9/L Normal 150.0 - 500.0 E9/L FT HemeAutoSS RBC (Bld) [#/Vol] 4.4 E12/L Normal 4.3 - 5.9 E12/L FT HemeAutoSS WBC corrected for nucl RBC Auto (Bld) [#/Vol] 14.5 E9/L High 4.0 - 11.0 E9/L [facility] HemeAutoSS Hep Func Panelon 06-23-2023 Albumin [Mass/Vol] 4.1 g/dL Normal 3.3-5.0 [facility] Comment on above: Performed By: #### 2 [id number], [id number] #### [facility] [address] [place] [address] Albumin/Globulin [Mass ratio] 1.7 {ratio} Normal 1.1-2.2 [facility] Comment on above: Performed By: #### 2 [id number], [id number] #### [facility] [address] [place] [address] Alk Phos 80 Int._Unit/L Normal 21-98 [facility] Comment on above: Performed By: #### 2 [id number], [id number] #### [facility] [address] [place] [address] ALT 10 Int._Unit/L Normal 6-46 [facility] Comment on above: Performed By: #### 2 707333, [id number] #### [facility] [address] [place] [address] AST 16 Int._Unit/L Normal 5-43 [facility] Comment on above: Performed By: #### 2 [id number], [id number] #### [facility] [address] [place] [address] Bili Direct 0.1 mg/dL Normal 0.0-0.4 [facility] Comment on above: Performed By: #### 2 745174, [id number] #### [facility] [address] [place] [address] Bili Indirect 0.5 mg/dL Normal 0.1-0.9 [facility] Comment on above: Performed By: #### 2 710711, [id number] #### [facility] [address] [place] [address] Bili Total 0.6 mg/dL Normal 0.0-1.1 [facility] Comment on above: Performed By: #### 2 075319, [id number] #### [facility] [address] [place] [address] Globulin (S) [Mass/Vol] 2.4 g/dL Normal 1.4-4.0 [facility] Comment on above: Performed By: #### 2 401017, [id number] #### [facility] [address] [place] [address] Protein [Mass/Vol] 6.5 g/dL Normal 6.0-7.8 [facility] Comment on above: Performed By: #### 2 093984, [id number] #### [facility] [address] [place] [address] Interdisciplinary Note - Bobby n 06-23-2023 Interdisciplinary [...] Recommend Out-pt. OT eval. for Parkinson's. Normal [facility] Interdisciplinary Note - Spe ech Languageon [...] further ST needs at this time. Normal [facility] Lactic Acidon 06-23-2023 Lactic Acid Lvl 1.1 mmol/L Normal 0.5-2.2 [facility] Comment on above: Performed By: #### 2 769075, [id number] #### [facility] [address] [place] [address] MICRO OTHER TESTSOrdered By: Hoang Chris on 06-23-2023 Rapid COV Int NEG Ctl Pass (06/23/23 2:12 AM) Normal [facility] Man Sero Rapid COV Int POS Ctl Pass (06/23/23 2:12 AM) Normal [facility] Sero SARS-CoV+SARS-CoV-2 (COVID-19) Ag IA.rapid Ql (Resp) Not Detected 11 (06/23/23 2:12 AM) Normal Not Detected [facility] Man Sero Comment on above: Interpretive Data: Bob melendez [employer] Veritor System for Rapid Detection of SARS-CoV-2 [...] 06-23-2023 Magnesium [Mass/Vol] 1.8 mg/dL Normal 1.3-2.4 [facility] Comment on above: Performed By: #### 2 [id number], [id number] #### [facility] [address] [place] [address] Message from Medicareon 06-11 Message from Medicare [id number]#1.00TIFF Normal [facility] Monitor Recordon 06-23-2023 Monitor Record [id number]#1.00TIFF Normal [facility] Monitor Record [id number]#1.00TIFF Normal [facility] Monitor Record [id number]#1.00TIFF Normal [facility] Monitor Record [id number]#1.00TIFF Normal [facility] PT & PTTon 06-23-2023 aPTT Coag (PPP) [Time] 30.4 second(s) Normal 25.1-36.5 [facility] Comment on above: Result Comment: Para [...] the same coagulation reagent and instrumentation as [facility]. Currently there are no coagulation studies available worldwide for children to 14 days, and no normal ranges. Heparin therapeutic range (represented by Anti-Factor Xa activity of 0.2 - 0.4 U/mL) corresponds to PTT of 56.6 - 109.0 sec. Performed By: #### 2 497993, [id number] #### [facility] [address] [place] [address] INR Coag (PPP) [Relative time] 1.0 {INR} Invalid Interpretation Code [facility] Comment on above: Result Comment: INR results are specifically intended to assess patients stabilized on long-term Anticoagulation therapy suggested INR?s ?Less Intensive Anticoagulation? 2.0 ? 3.0 Conventional Range 3.0 ? 4.5 Performed By: #### 2 917645, [id number] #### [facility] [address] [place] [address] PT Coag (PPP) [Time] 11.7 second(s) Normal 9.4-12.5 [facility] Comment on above: Result Comment: 15 [...] the same coagulation reagent and instrumentation as [facility]. Currently there are no coagulation studies available worldwide for children to 14 days, and no normal ranges. Performed By: #### 2 343853, [id number] #### [facility] [address] [place] [address] Patient Education - Texton 0 06-23-2023 Patient Education - Text Neurology Weakness Weakness [...] about working with a physical therapist or quality review trainer to help you get stronger. General instructions ? Take pehl-yyf-wxoqjde and prescription medicines only as told by [...] provider. Document Revised: 04/30/2022 Document Reviewed: 04/30/2022 [employer] Patient Education ? 2022 [employer]. Obstetrics and Gynecology Urinary Tract Infection, Adult [...] (sexually transmitted (more content not included)... Normal [facility] Pre-Arrival Noteon Pre-Arrival Note Pre-Arrival Summary Name: , ncelsy Current Date: 06/23/2023 01:37:08 EST Gender: Date of : Age: Pre-Arrival Type: EMS ETA: 06/23/2023 01:53:00 EST Primary Care Physician: Presenting Problem: possible stroke Pre-Arrival User: Tejal Gold RN Referring Source: Location: [place] Completion Date/Time: 06/23/2023 01:23:00 [facility] Emergency Department Pre-Hospital Report Form Vital Signs: Pre-Hospital Report: Treatment in Route: Response to Treatment: Misc. Issues: Normal [facility] RAD - Preliminary Cat Scan R eporton 06-23-2023 RAD - Preliminary Cat Scan Report [id number]#1.00TIFF Normal [facility] Rapid COVID Antigen ([facility])on 06-23-2023 Rapid COV Int NEG Ctl Pass Normal [facility] Comment on above: Performed By: #### 2 064919, [id number] #### [facility] [address] [place] [address] Rapid COV Int POS Ctl Pass Normal [facility] Comment on above: Performed By: #### 2 503671, [id number] #### [facility] [address] [place] [address] SARS-CoV+SARS-CoV-2 (COVID-19) Ag IA.rapid Ql (Resp) Not detected Normal Not Detected [facility] Comment on above: Result Comment: The [employer] for Rapid Detection of SARS-CoV-2 is [...] For in vitro diagnostic use. In the [facility], only for use under an Emergency Use [...] or revoked sooner. Performed By: #### 2 365752, [id number] #### [facility] [address] [place] [address] TSH With T4fr Reflexon 06-23 TSH Qn 0.68 m[IU]/L Normal 0.34-5.60 [facility] Comment on above: Performed By: #### 2 529743, [id number] #### [facility] [address] [place] [address] Troponin 0 Hr.on 06-23-2023 Troponin 42.70 pg/mL Abnormal 10.10-27.1 0 [facility] Comment on above: Result Comment: Crit [...] Sensitivity Troponin I Instructions For Use, Jacques Lawler, January 2018) Performed By: #### 2 480633, [id number] #### [facility] [address] [place] [address] Troponin 3 Hr.on 06-23-2023 Troponin 116.80 pg/mL Abnormal 10.10-27.1 0 [facility] Comment on above: Result Comment: Crit [...] High Sensitivity Troponin I Instructions For Use, [employer], January 2018) Performed By: #### 1 [id number] #### [facility] [address] [place] [address] Troponin 6 Hr.on 06-23-2023 Troponin 183.20 pg/mL Abnormal 10.10-27.1 0 [facility] Comment on above: Result Comment: Crit ical Result Verified by Previous Result Critical Result I_TnIHS:183.2 Called to and read back by: TATIANA MUNSON at: 06/23/2023 09:12:46 by:CMK The 95% CI (Confidence Interval) PPV (Positive Predictive Value) for myocardial infarction in females is 38 pg/mL, in males 51 pg/mL. The results should be used in conjunction with clinical conditions of myocardial infarction. (Access High Sensitivity Troponin I Instructions For Use, [employer], January 2018) Performed By: #### 1 [id number] #### [facility] [address] [place] [address] Troponin 9 Hr.on 06-23-2023 Troponin 187.00 pg/mL Abnormal 10.10-27.1 0 [facility] Comment on above: Result Comment: Crit ical Result Verified by Previous Result Critical Result I_TnIHS:187.0 Called to and read back by: ANGEL RESTREPO at: 06/23/2023 12:10:53 by:CMK The 95% CI (Confidence Interval) PPV (Positive Predictive Value) for myocardial infarction in females is 38 pg/mL, in males 51 pg/mL. The results should be used in conjunction with clinical conditions of myocardial infarction. (Access High Sensitivity Troponin I Instructions For Use, [employer], January 2018) Performed By: #### 1 [id number] ####[facility] [address] [place] [address] UA With Cult Reflexon 2023 Bacteria LM Ql (Urine sed) 1+ /HPF Abnormal Trace [facility] Comment on above: Performed By: #### 1 [id number], [id number] #### [facility] [address] [place] [address] Bilirubin Ql (U) Negative Normal Negative [facility] Comment on above: Performed By: #### 1 [id number], [id number] #### [facility] [address] [place] [address] Clarity (U) SL CLOUDY Abnormal Clear [facility] Comment on above: Performed By: #### 1 [id number], [id number] #### [facility] [address] [place] [address] Color (U) YELLOW Normal Yellow [facility] Comment on above: Performed By: #### 1 7143616, [id number] #### [facility] [address] [place] [address] Epithelial cells.squamous LM.HPF (Urine sed) [#/Area] 0-2 Normal 0-2 [facility] Comment on above: Performed By: #### 1 1488436, [id number] #### [facility] [address] [place] [address] Glucose Test strip (U) [Mass/Vol] Negative Normal Negative [facility] Comment on above: Performed By: #### 1 [id number], [id number] #### [facility] [address] [place] [address] Hemoglobin Ql (U) Negative Normal Negative [facility] Comment on above: Performed By: #### 1 [id number], [id number] #### [facility] [address] [place] [address] Ketones (U) [Mass/Vol] Negative Normal Negative [facility] Comment on above: Performed By: #### 1 9049430, [id number] #### [facility] [address] [place] [address] Chadwick.plasma/Lithi um.RBC (Bld) [Mass ratio] 0-3 Normal 0-3 [facility] Comment on above: Performed By: #### 1 [id number], [id number] #### [facility] [address] [place] [address] Nitrite Ql (U) Negative Normal Negative [facility] Comment on above: Performed By: #### 1 [id number], [id number] #### [facility] [address] [place] [address] pH (U) 7.5 [pH] Invalid Interpretation Code 5.0-9.0 [facility] Comment on above: Performed By: #### 1 [id number], [id number] #### [facility] [address] [place] [address] Protein (U) [Mass/Vol] Negative Normal Negative [facility] Comment on above: Performed By: #### 1 [id number], [id number] #### [facility] [address] [place] [address] Specific gravity (U) [Rel density] 1.015 Invalid Interpretation Code 1.005-1.03 0 [facility] Comment on above: Performed By: #### 1 [id number], [id number] #### [facility] [address] [place] [address] Urobilinogen Qn (U) 0.2 {Phoebe'U}/dL Normal 0.0-1.0 [facility] Comment on above: Performed By: #### 1 1969344, [id number] #### [facility] [address] [place] [address] WBC Auto Ql (U) 1+ Abnormal Negative [facility] Comment on above: Performed By: #### 1 [id number], [id number] #### [facility] [address] [place] [address] WBC LM.HPF (Urine sed) [#/Area] 6-15 Abnormal 0-5 [facility] Comment on above: Performed By: #### 1 [id number], [id number] #### [facility] [address] [place] [address] URINALYSISOrdered By: Hoang Chris on 06-23-2023 Bacteria LM Ql (Urine sed) 1+ /HPF Invalid Interpretation Code Trace/HPF FT UA Auto SS Bilirubin Ql (U) Negative (06/23/23 3:01 AM) Normal Negative [facility] UA Auto SS Clarity (U) Slightly Cloudy *ABN* (06/23/23 3:01 AM) Invalid Interpretation Code Clear [facility] UA Auto SS Color (U) Yellow (06/23/23 3:01 AM) Normal Yellow [facility] UA Auto SS Epithelial cells.squamous LM.HPF (Urine sed) [#/Area] 0-2 /HPF Normal 0-2/HPF FT UA Auto SS Glucose Test strip (U) [Mass/Vol] Negative (06/23/23 3:01 AM) Normal Negative [facility] UA Auto SS Hemoglobin Ql (U) Negative (06/23/23 3:01 AM) Normal Negative [facility] UA Auto SS Ketones (U) [Mass/Vol] Negative (06/23/23 3:01 AM) Normal Negative [facility] UA Auto SS Chadwick.plasma/Lithi um.RBC (Bld) [Mass ratio] 0-3 /HPF Normal 0-3/HPF [facility] UA Auto SS Nitrite Ql (U) Negative (06/23/23 3:01 AM) Normal Negative [facility] UA Auto SS pH (U) 7.5 *NA* (06/23/23 3:01 AM) Invalid Interpretation Code 5.0 - 9.0 [facility] UA Auto SS Protein (U) [Mass/Vol] Negative (06/23/23 3:01 AM) Normal Negative [facility] UA Auto SS Specific gravity (U) [Rel density] 1.015 *NA* (06/23/23 3:01 AM) Invalid Interpretation Code 1.005 - 1.030 [facility] UA Auto SS UA Spec Desc Clean Catch (06/23/23 3:01 AM) Normal [facility] UA Auto SS Urobilinogen Qn (U) 0.2823023 {Phoebe'U}/dL Normal 0.0 - 1.0 EU/dL FT UA Auto SS WBC Auto Ql (U) [...] mGy = na DAP = na Normal [facility] eGFRon 06-23-2023 GFR/1.73 sq M.predicted among non-blacks MDRD (S/P/Bld) [Vol rate/Area] mL/min/{1.73_m2} Normal >=59 [facility] Comment on above: Order Comment: Order added by Discern Expert. Performed By: #### 2 [id number], [id number] #### [facility] [address] [place] [address] Creatinine (Bld) [Mass/Vol]O rdered By: Cathie Reid on 05-15-2023 Creatinine [Mass/Vol] 1.0 mg/dL 0.6-1.3 [facility] Comment on above: ER/ESD physician is notified/shown all ISTAT results.Critical values may be confirmed by laboratory testing ifdeemed necessary by ER attending doctor. ISTAT XRay CREon 05-15-2023 Creatinine [Mass/Vol] 1.0 mg/dL Normal 0.6-1.3 [facility] Comment on above: Result Comment: ER/E SD physician is notified/shown all ISTAT results. Critical values may be confirmed by laboratory testing if deemed necessary by ER attending doctor. Performed By: #### I SCRE #### [address] ISTAT GFR 58.023 Normal [facility] Comment on above: Result Comment: PERF ORMED BY: [facility] [address] [place] [address] PATHOLOGIST PATIENT RELATIONS LIAISON MARISOL AGUSTIN M.D. Performed By: #### I SCRE #### [address] MR head/brain wo/w conon MR head/brain wo/w con [facility] Main [place] [address] [place] [address] MRI Report Signed Patient: Judith Khan MR#: [id number] 320 : 1945 Acct:[id number] Age/Sex: 78 / F ADM Date: 05/15/23 Loc: MR Room: Type: [facility] Attending Dr: Cathie COLIN Copies to: DIXIE [...] Adeel Meyer M.D.05/15/2023 5:24 PM Dictation Location: [place] [address] Transcribed By: [facility] 05/15/231723 Dictated By: Adeel Meyer II, MD 05/15/231718 Signed By: 05/15/231723 [facility] No Panel InformationOrdered By: Cathie Reid on 05-15-2023 Bedside Estimated GFR (eGFR) 58.023 [facility] 37on 01-12-2023 37 Hold metoprolol and see if fatigue levels improve Continue all other medications Monitor blood pressure 1-2 times a day and if it increases greater than 130/80 please call the office for medication adjustment, or for tachycardia/palpitations Normal [facility] Office Visiton 01-12-2023 Follow-up visit [id number] Ira Khan 1945 F Date Provider Department Center 01/12/2023 [place] [facility] Family History Problem Relation Age of Onset Stroke Mother Stroke Brother Other Mother's Sister Coronary artery disease Mother's Sister Stroke Maternal Grandmother Family Status - Relation Status Age at Mother Brother Mother's Sister Maternal Grandmother Level of Service:[address] [place] OFFICE/OUTPATIENT ESTABLISHED LOW MDM 20-29 MIN Normal [facility] BNPon 10-09-2022 Natriuretic peptide B (Bld) [Mass/Vol] 90.0 pg/mL Normal <=1,800.0 [facility] Comment on above: Performed By: #### M G, CMP, TSH, T7, BNP #### [facility] [address] [place], [place] [address] Dr. Glenys Holly CBC AUTO DIFFon 10-09-2022 BASO # 0.1 103/ul Normal 0.0-0.1 [facility] Comment on above: Performed By: #### M G, CMP, TSH, T7, BNP #### [facility] [address] [place], [place] [address] Dr. Glenys Holly Basophils/100 WBC (Bld) 1.0 % Normal 0.2-2.0 [facility] Comment on above: Performed By: #### M G, CMP, TSH, T7, BNP #### [facility] [address] [place] [address] [address] Glenys Holly EO # 0.5 103/ul Normal 0.0-0.7 [facility] Comment on above: Performed By: #### M G, CMP, TSH, T7, BNP #### [facility] [address] [place] [address] [address] Glenys Holly Eosinophils/100 WBC (Bld) 6.4 % Normal 0.9-7.0 [facility] Comment on above: Performed By: #### M G, CMP, TSH, T7, BNP #### [facility] [address] [place] [address] Dr. Glenys Holly Erythrocyte distribution width (RBC) [Ratio] 15.4 % Critically high 11.0-15.0 [facility] Comment on above: Performed By: #### M G, CMP, TSH, T7, BNP #### [facility] [address] [place] [address] Dr. Glenys Holly Hematocrit (Bld) [Volume fraction] 42.8 % Normal 36.0-48.0 [facility] Comment on above: Performed By: #### M G, CMP, TSH, T7, BNP #### [facility] [address] [place] [address] Dr. Glenys Holly Hemoglobin (Bld) [Mass/Vol] 14.1 g/dL Normal 12.0-16.0 [facility] Comment on above: Performed By: #### M G, CMP, TSH, T7, BNP #### [facility] [address] [place] [address] Dr. Glenys Holly IG # 0.01 10e3/ul Normal 0.00-0.03 [facility] Comment on above: Performed By: #### M G, CMP, TSH, T7, BNP #### [facility] [address] [place] [address] Dr. Glenys Holly IG % 0.1 % Normal 0.0-0.5 [facility] Comment on above: Performed By: #### M G, CMP, TSH, T7, BNP #### [facility] [address] [place] [address] Dr. Glenys Holly LYMPH # 3.3 103/ul Normal 1.2-3.8 [facility] Comment on above: Performed By: #### M G, CMP, TSH, T7, BNP #### [facility] [address] [place] [address] Dr. Glenys Holly Lymphocytes/100 WBC (Bld) 44.2 % Normal 20.5-60.0 [facility] Comment on above: Performed By: #### M G, CMP, TSH, T7, BNP #### [facility] [address] [place] [address] Dr. Glenys Holly MANUAL DIFF REQ NO Normal [facility] Comment on above: Performed By: #### M G, CMP, TSH, T7, BNP #### [facility] [address] [place] [address] Dr. Glenys Holly MCH (RBC) [Entitic mass] 30.3 pg Normal 26.7-34.0 [facility] Comment on above: Performed By: #### M G, CMP, TSH, T7, BNP #### [facility] [address] [place] [address] Dr. Glenys Holly MCHC (RBC) [Mass/Vol] 32.9 g/dL Normal 29.9-35.2 [facility] Comment on above: Performed By: #### M G, CMP, TSH, T7, BNP #### [facility] [address] [place] [address] Dr. Glenys Holly MCV (RBC) [Entitic vol] 92.0 fL Normal 81.0-99.0 [facility] Comment on above: Performed By: #### M G, CMP, TSH, T7, BNP #### [facility] [address] [place] [address] Dr. Glenys Holly MONO # 1.2 103/ul Critically high 0.3-0.8 [facility] Comment on above: Performed By: #### M G, CMP, TSH, T7, BNP #### [facility] [address] [place] [address] [address] Glenys Holly Monocytes/100 WBC (Bld) 16.4 % Critically high 1.7-12.0 [facility] Comment on above: Performed By: #### M G, CMP, TSH, T7, BNP #### [facility] [address] [place] [address] Dr. Glenys Holly NEUT # 2.4 103/ul Normal 1.4-6.5 [facility] Comment on above: Performed By: #### M G, CMP, TSH, T7, BNP #### [facility] [address] [place] [address] Dr. Glenys Holly Neutrophils/100 WBC (Bld) 31.9 % Critically low 43.0-75.0 [facility] Comment on above: Performed By: #### M G, CMP, TSH, T7, BNP #### [facility] [address] [place] [address] Dr. Glenys Holly Platelet mean volume (Bld) [Entitic vol] 10.3 fL Normal 9.5-13.5 [facility] Comment on above: Performed By: #### M G, CMP, TSH, T7, BNP #### [facility] [address] [place] [address] Dr. Glenys Holly PLT 379 103/ul Normal 150-450 [facility] Comment on above: Performed By: #### M G, CMP, TSH, T7, BNP #### [facility] [address] [place] [address] Dr. Glenys Holly RBC 4.65 106/ul Normal 4.20-5.40 [facility] Comment on above: Performed By: #### M G, CMP, TSH, T7, BNP #### [facility] [address] [place] [address] Dr. Glenys Holly WBC 7.4 103/ul Normal 4.0-11.0 [facility] Comment on above: Performed By: #### M G, CMP, TSH, T7, BNP #### [facility] [address] [place] [address] Dr. Glenys Holly FERRITINon 10-09-2022 Ferritin [Mass/Vol] 68.0 ng/mL Normal 8.0-252.0 [facility] Comment on above: Performed By: #### F ERR, IRON, VITAD ####[facility] [id number] [place] [address]Dr. Glenys Holly FREE THYROXINE INDEX T7on FTI 3.10 Normal 1.30-4.50 [facility] Comment on above: Performed By: #### M G, CMP, TSH, T7, BNP #### [facility] [address] [place] [address] [address] Glenys Holly T3U 36.0 % Normal 30.0-39.0 [facility] Comment on above: Performed By: #### M G, CMP, TSH, T7, BNP #### [facility] [address] [place] [address] [address] Glenys Holly T4 [Mass/Vol] 8.60 ug/dL Normal 4.80-13.90 [facility] Comment on above: Performed By: #### M G, CMP, TSH, T7, BNP #### [facility] [address] [place] [address] [address] Glenys Holly IRONon 10-09-2022 Iron [Mass/Vol] 52.0 ug/dL Normal 50.0-170.0 [facility] Comment on above: Performed By: #### F ERR, IRON, VITAD ####[facility] [id number] [place] [address]Dr. Glenys Holly MAGNESIUMon 10-09-2022 Magnesium [Mass/Vol] 2.0 mg/dL Normal 1.8-2.4 [facility] Comment on above: Performed By: #### M G, CMP, TSH, T7, BNP #### [facility] [address] [place] [address] Dr. Glenys Holly PROF 14(COMP METB)on 023 Albumin [Mass/Vol] 3.5 g/dL Normal 3.4-5.0 [facility] Comment on above: Performed By: #### M G, CMP, TSH, T7, BNP #### [facility] [address] [place] [address] Dr. Glenys Holly Albumin/Globulin [Mass ratio] 1.0 {ratio} Normal [facility] Comment on above: Performed By: #### M G, CMP, TSH, T7, BNP #### [facility] [address] [address] [address] Glenys Holly ALP [Catalytic activity/Vol] 134 U/L Critically high 46-116 [facility] Comment on above: Performed By: #### M G, CMP, TSH, T7, BNP #### [facility] [address] [address] [address] Glenys Holly ALT [Catalytic activity/Vol] 34 U/L Normal 14-59 [facility] Comment on above: Performed By: #### M G, CMP, TSH, T7, BNP #### [facility] [address] [place] [address] Dr. Glenys Holly Anion gap [Moles/Vol] 8.8 mmol/L Normal [facility] Comment on above: Performed By: #### M G, CMP, TSH, T7, BNP #### [facility] [address] [place] [address] Dr. Glenys Holly AST [Catalytic activity/Vol] 19 U/L Normal 15-37 [facility] Comment on above: Performed By: #### M G, CMP, TSH, T7, BNP #### [facility] [address] [address] [address] Glenys Holly Bilirubin [Mass/Vol] 0.2 mg/dL Normal 0.2-1.0 [facility] Comment on above: Performed By: #### M G, CMP, TSH, T7, BNP #### [facility] [address] [address] [address] Glenys Holly Calcium [Mass/Vol] 10.6 mg/dL Critically high 8.5-10.[address] [facility] Comment on above: Performed By: #### M G, CMP, TSH, T7, BNP #### [facility] [address] [place] [address] Dr. Glenys Holly Chloride [Moles/Vol] 105 mmol/L Normal 98-107 [facility] Comment on above: Performed By: #### M G, CMP, TSH, T7, BNP #### [facility] [address] [address] [address] Glenys Holly CO2 [Moles/Vol] 30.0 mmol/L Normal 21.0-32.0 [facility] Comment on above: Performed By: #### M G, CMP, TSH, T7, BNP #### [facility] [address] [address] [address] Glenys Holly Creatinine [Mass/Vol] 0.86 mg/dL Normal 0.55-1.02 [facility] Comment on above: Performed By: #### M G, CMP, TSH, T7, BNP #### [facility] [address] [address] [address] Glenys Holly EGFR-AF SWEDISH >60 Normal >=60 [facility] Comment on above: Performed By: #### M G, CMP, TSH, T7, BNP #### [facility] [address] [address] [address] Glenys Holly EGFR-NON AF SWEDISH >60 Normal >=60 [facility] Comment on above: Performed By: #### M G, CMP, TSH, T7, BNP #### [facility] [address] [address] [address] Glenys Holly Globulin (S) [Mass/Vol] 3.5 g/dL Normal [facility] Comment on above: Performed By: #### M G, CMP, TSH, T7, BNP #### [facility] [address] [address] [address] Glenys Holly Glucose [Mass/Vol] 99 mg/dL Normal 74-106 [facility] Comment on above: Performed By: #### M G, CMP, TSH, T7, BNP #### [facility] [address] [address] [address] Glenys Holly Potassium [Moles/Vol] 3.8 mmol/L Normal 3.5-5.1 [facility] Comment on above: Performed By: #### M G, CMP, TSH, T7, BNP #### [facility] [address] [address] [address] Glenys Holly Protein [Mass/Vol] 7.0 g/dL Normal 6.4-8.2 [facility] Comment on above: Performed By: #### M G, CMP, TSH, T7, BNP #### [facility] [address] [address] [address] Glenys Holly Sodium [Moles/Vol] 140 mmol/L Normal 136-145 [facility] Comment on above: Performed By: #### M G, CMP, TSH, T7, BNP #### [facility] [address] [address] [address] Glenys Holly Urea nitrogen [Mass/Vol] 25.0 mg/dL Critically high 7.0-18.0 [facility] Comment on above: Performed By: #### M G, CMP, TSH, T7, BNP #### [facility] [address] [address] [address] Glenys Holly Urea nitrogen/Creatinine [Mass ratio] 29.1 mg/mg Normal [facility] Comment on above: Performed By: #### M G, CMP, TSH, T7, BNP #### [facility] [address] [address] [address] Glenys Holly TSHon 10-09-2022 TSH 1.720 uIU/mL Normal 0.358-3.74 0 [facility] Comment on above: Performed By: #### M G, CMP, TSH, T7, BNP #### [facility] [address] [place] [address] Dr. Glenys Holly VITAMIN D 25 OHon 10-09-2022 VIT D 25-OH 89.3 ng/mL Normal [facility] Comment on above: Performed By: #### F ERR, IRON, VITAD ####[facility] [address] [address]Dr. Glenys Holly VIT D RANGES SEE BELOW Normal [facility] Comment on above: Result Comment: <20 ng/mL Vit D deficient 20 - <30 ng/mL Vit D insufficient 30 - 100 ng/mL Vit D sufficient >100 ng/mL Potential Toxicity Performed By: #### F ERR, IRON, VITAD ####[facility] [address] [place], [place] [address]Xd. Glenys Holly NM STRESS/REST MULTIon 05-24 NM STRESS/REST MULTI Patient: Shana KHAN Exam Date: 05/24/2022 : 1945 Gender:F Ordering : DR KAVON SAMS . Admission #: [id number] Family : Order #: [id number] CLICK HERE TO VIEW EXAM RADIOLOGY REPORT [...] M.D. on 05/24/2022 at 16:02 Normal [facility] BNPon 05-10-2022 Natriuretic peptide B (Bld) [Mass/Vol] 1305.0 pg/mL Normal <=1,800.0 [facility] Comment on above: Performed By: #### M G, CMP, TSH, T7, BNP #### [facility] [address] [place] [address] Dr. Glenys Holly CBC AUTO DIFFon 05-10-2022 BASO # 0.0 103/ul Normal 0.0-0.1 [facility] Comment on above: Performed By: #### M G, CMP, TSH, T7, BNP #### [facility] [address] [place] [address] Dr. Glenys Holly Basophils/100 WBC (Bld) 0.3 % Normal 0.2-2.0 [facility] Comment on above: Performed By: #### M G, CMP, TSH, T7, BNP #### [facility] [address] [place] [address] Dr. Glenys Holly EO # 0.0 103/ul Normal 0.0-0.7 [facility] Comment on above: Performed By: #### M G, CMP, TSH, T7, BNP #### [facility] [address] [place] [address] Dr. Glenys Holly Eosinophils/100 WBC (Bld) 0.1 % Critically low 0.9-7.0 [facility] Comment on above: Performed By: #### M G, CMP, TSH, T7, BNP #### [facility] [address] [place] [address] Dr. Glenys Holly Erythrocyte distribution width (RBC) [Ratio] 15.1 % Critically high 11.0-15.0 [facility] Comment on above: Performed By: #### M G, CMP, TSH, T7, BNP #### [facility] [address] [place] [address] Dr. Glenys Holly Hematocrit (Bld) [Volume fraction] 42.9 % Normal 36.0-48.0 [facility] Comment on above: Performed By: #### M G, CMP, TSH, T7, BNP #### [facility] [address] [place] [address] Dr. Glenys Holly Hemoglobin (Bld) [Mass/Vol] 14.6 g/dL Normal 12.0-16.0 [facility] Comment on above: Performed By: #### M G, CMP, TSH, T7, BNP #### [facility] [address] [place] [address] Dr. Glenys Holly IG # 0.05 10e3/ul Critically high 0.00-0.03 [facility] Comment on above: Performed By: #### M G, CMP, TSH, T7, BNP #### [facility] [address] [place] [address] Dr. Glenys Holly IG % 0.7 % Critically high 0.0-0.5 [facility] Comment on above: Performed By: #### M G, CMP, TSH, T7, BNP #### [facility] [address] [place] [address] Dr. Glenys Holly LYMPH # 1.6 103/ul Normal 1.2-3.8 [facility] Comment on above: Performed By: #### M G, CMP, TSH, T7, BNP #### [facility] [address] [place] [address] Dr. Glenys Holly Lymphocytes/100 WBC (Bld) 20.4 % Critically low 20.5-60.0 [facility] Comment on above: Performed By: #### M G, CMP, TSH, T7, BNP #### [facility] [address] [place] [address] Dr. Glenys Holly MANUAL DIFF REQ NO Normal [facility] Comment on above: Performed By: #### M G, CMP, TSH, T7, BNP #### [facility] [address] [place] [address] Dr. Glenys Holly MCH (RBC) [Entitic mass] 29.9 pg Normal 26.7-34.0 [facility] Comment on above: Performed By: #### M G, CMP, TSH, T7, BNP #### [facility] [address] [place] [address] Dr. Glenys Holly MCHC (RBC) [Mass/Vol] 34.0 g/dL Normal 29.9-35.2 [facility] Comment on above: Performed By: #### M G, CMP, TSH, T7, BNP #### [facility] [address] [place] [address] Dr. Glenys Holly MCV (RBC) [Entitic vol] 87.9 fL Normal 81.0-99.0 [facility] Comment on above: Performed By: #### M G, CMP, TSH, T7, BNP #### [facility] [address] [place] [address] Dr. Glenys Holly MONO # 0.7 103/ul Normal 0.3-0.8 [facility] Comment on above: Performed By: #### M G, CMP, TSH, T7, BNP #### [facility] [address] [place] [address] Dr. Glenys Holly Monocytes/100 WBC (Bld) 9.5 % Normal 1.7-12.0 [facility] Comment on above: Performed By: #### M G, CMP, TSH, T7, BNP #### [facility] [address] [place] [address] Dr. Glenys Holly NEUT # 5.2 103/ul Normal 1.4-6.5 [facility] Comment on above: Performed By: #### M G, CMP, TSH, T7, BNP #### [facility] [address] [place] [address] Dr. Glenys Holly Neutrophils/100 WBC (Bld) 69.0 % Normal 43.0-75.0 [facility] Comment on above: Performed By: #### M G, CMP, TSH, T7, BNP #### [facility] [address] [place] [address] Dr. Glenys Holly Platelet mean volume (Bld) [Entitic vol] 11.2 fL Normal 9.5-13.5 [facility] Comment on above: Performed By: #### M G, CMP, TSH, T7, BNP #### [facility] [address] [place] [address] Dr. Glneys Holly PLT 349 103/ul Normal 150-450 [facility] Comment on above: Performed By: #### M G, CMP, TSH, T7, BNP #### [facility] [address] [place] [address] Dr. Glenys Holly RBC 4.88 106/ul Normal 4.20-5.40 [facility] Comment on above: Performed By: #### M G, CMP, TSH, T7, BNP #### [facility] [address] [address] [address] Glenys Holly WBC 7.6 103/ul Normal 4.0-11.0 [facility] Comment on above: Performed By: #### M G, CMP, TSH, T7, BNP #### [facility] [address] [address] [address] Glenys Holly PROF 14(COMP METB)on 022 Albumin [Mass/Vol] 3.3 g/dL Critically low 3.4-5.0 [facility] Comment on above: Performed By: #### H STROPN, BNP, CMP ####[facility] [address] [address]DrRatna Holly Albumin/Globulin [Mass ratio] 1.1 {ratio} Normal [facility] Comment on above: Performed By: #### H STROPN, BNP, CMP ####[facility] [address] [address]Dr. Glenys Holly ALP [Catalytic activity/Vol] 78 U/L Normal 46-116 [facility] Comment on above: Performed By: #### H STROPN, BNP, CMP ####[facility] [address] [address]DrRatna oHlly ALT [Catalytic activity/Vol] 10 U/L Critically low 14-59 [facility] Comment on above: Performed By: #### H STROPN, BNP, CMP ####[facility] [address] [address]DrRatna Holly Anion gap [Moles/Vol] 11.2 mmol/L Normal [facility] Comment on above: Performed By: #### H STROPN, BNP, CMP ####[facility] [address] [address]DrRatna Holly AST [Catalytic activity/Vol] 15 U/L Normal 15-37 [facility] Comment on above: Performed By: #### H STROPN, BNP, CMP ####[facility] [address] [address]Dr. Glenys Holly Bilirubin [Mass/Vol] 0.4 mg/dL Normal 0.2-1.0 [facility] Comment on above: Performed By: #### H STROPN, BNP, CMP ####[facility] [address] [address]Dr. Glenys Holly Calcium [Mass/Vol] 8.9 mg/dL Normal 8.5-10.1 [facility] Comment on above: Performed By: #### H STROPN, BNP, CMP ####[facility] [address] [address]Dr. Glenys Holly Chloride [Moles/Vol] 98 mmol/L Normal 98-107 [facility] Comment on above: Performed By: #### H STROPN, BNP, CMP ####[facility] [address] [address]Dr. Glenys Holly CO2 [Moles/Vol] 31.1 mmol/L Normal 21.0-32.0 [facility] Comment on above: Performed By: #### H STROPN, BNP, CMP ####[facility] [address] [place], [place] [address]Dr. Glenys Holly Creatinine [Mass/Vol] 1.15 mg/dL Critically high 0.55-1.02 [facility] Comment on above: Performed By: #### H STROPN, BNP, CMP ####[facility] [address] [address]Dr. Glenys Holly EGFR-AF SWEDISH 56 mL/min/1.73m2 Critically low >=60 [facility] Comment on above: Performed By: #### H STROPN, BNP, CMP ####[facility] [address] [address]Dr. Glenys Holly EGFR-NON AF SWEDISH 46 mL/min/1.73m2 Critically low >=60 [facility] Comment on above: Performed By: #### H STROPN, BNP, CMP ####[facility] [address] [place], [place] [address]Dr. Glenys Holly Globulin (S) [Mass/Vol] 3.0 g/dL Normal [facility] Comment on above: Performed By: #### H STROPN, BNP, CMP ####[facility] [address] [address]Dr. Glenys Holly Glucose [Mass/Vol] 107 mg/dL Critically high 74-106 [facility] Comment on above: Performed By: #### H STROPN, BNP, CMP ####[facility] [address] [address]Dr. Glenys Holly Potassium [Moles/Vol] 3.3 mmol/L Critically low 3.5-5.1 [facility] Comment on above: Performed By: #### H STROPN, BNP, CMP ####[facility] [address] [address]Dr. Glenys Holly Protein [Mass/Vol] 6.3 g/dL Critically low 6.4-8.2 [facility] Comment on above: Performed By: #### H STROPN, BNP, CMP ####[facility] [address] [place], [place] [address]Dr. Glenys Holly Sodium [Moles/Vol] 137 mmol/L Normal 136-145 [facility] Comment on above: Performed By: #### H STROPN, BNP, CMP ####[facility] [address] [address]Dr. Glenys Holly Urea nitrogen [Mass/Vol] 29.0 mg/dL Critically high 7.0-18.0 [facility] Comment on above: Performed By: #### H STROPN, BNP, CMP ####[facility] [address] [address]Dr. Glenys Holly Urea nitrogen/Creatinine [Mass ratio] 25.2 mg/mg Normal [facility] Comment on above: Performed By: #### H STROPN, BNP, CMP ####[facility] [address] [address]Dr. Glenys Holly TROPONIN, HIGH SENSITIVITYon 05-10-2022 HSTROP 50.5 pg/mL Normal 4.0-51.3 [facility] Comment on above: Result Comment: CUT- OFF POINTS HAVE BEEN ESTABLISHED BASED ON THE FOURTH UNIVERSAL DEFINITIONS OF MYOCARDIAL INFARCTION. THE UPPER REFERENCE LIMIT (URL) OF TROPONIN, DEFINED THE 99TH PERCENTILE OF cTnI DISTRIBUTION IN A REFERENCE POPULATION, HAS BEEN CONFIRMED THE DECISION THRESHOLD FOR IA DIAGNOSIS. Performed By: #### H STROPN, BNP, CMP ####[facility] [address] [place], [place] [address]NjDr. Glenys Holly XR CHEST 2 Von 05-10-2022 [...] RAMIRO SPENCER Date: 2022-05-10 08:10 Normal [facility] BNPon 05-09-2022 Natriuretic peptide B (Bld) [Mass/Vol] 1975.0 pg/mL Critically high <=1,800.0 [facility] Comment on above: Performed By: #### M G, CMP, TSH, T7, BNP #### [facility] [address] [address] [address] Glenys Holly CBC AUTO DIFFon 05-09-2022 BASO # 0.0 103/ul Normal 0.0-0.1 [facility] Comment on above: Performed By: #### M G, CMP, TSH, T7, BNP #### [facility] [address] [address] [address] Glenys Holly Basophils/100 WBC (Bld) 0.4 % Normal 0.2-2.0 [facility] Comment on above: Performed By: #### M G, CMP, TSH, T7, BNP #### [facility] [address] [place] [address] Dr. Glenys Holly EO # 0.0 103/ul Normal 0.0-0.7 [facility] Comment on above: Performed By: #### M G, CMP, TSH, T7, BNP #### [facility] [address] [place] [address] Dr. Glenys Holly Eosinophils/100 WBC (Bld) 0.0 % Critically low 0.9-7.0 [facility] Comment on above: Performed By: #### M G, CMP, TSH, T7, BNP #### [facility] [address] [place] [address] Dr. Glenys Holly Erythrocyte distribution width (RBC) [Ratio] 15.2 % Critically high 11.0-15.0 [facility] Comment on above: Performed By: #### M G, CMP, TSH, T7, BNP #### [facility] [address] [place] [address] Dr. Glenys Holly Hematocrit (Bld) [Volume fraction] 41.7 % Normal 36.0-48.0 [facility] Comment on above: Performed By: #### M G, CMP, TSH, T7, BNP #### [facility] [address] [place] [address] Dr. Glenys Holly Hemoglobin (Bld) [Mass/Vol] 14.1 g/dL Normal 12.0-16.0 [facility] Comment on above: Performed By: #### M G, CMP, TSH, T7, BNP #### [facility] [address] [place] [address] Dr. Glenys Holly IG # 0.12 10e3/ul Critically high 0.00-0.03 [facility] Comment on above: Performed By: #### M G, CMP, TSH, T7, BNP #### [facility] [address] [place] [address] Dr. Glenys Holly IG % 1.2 % Critically high 0.0-0.5 [facility] Comment on above: Performed By: #### M G, CMP, TSH, T7, BNP #### [facility] [address] [place] [address] Dr. Glenys Holly LYMPH # 1.6 103/ul Normal 1.2-3.8 [facility] Comment on above: Performed By: #### M G, CMP, TSH, T7, BNP #### [facility] [address] [place] [address] Dr. Glenys Holly Lymphocytes/100 WBC (Bld) 16.0 % Critically low 20.5-60.0 [facility] Comment on above: Performed By: #### M G, CMP, TSH, T7, BNP #### [facility] [address] [place] [address] Dr. Glenys Holly MANUAL DIFF REQ NO Normal [facility] Comment on above: Performed By: #### M G, CMP, TSH, T7, BNP #### [facility] [address] [place] [address] Dr. Glenys Holly MCH (RBC) [Entitic mass] 30.0 pg Normal 26.7-34.0 [facility] Comment on above: Performed By: #### M G, CMP, TSH, T7, BNP #### [facility] [address] [place] [address] Dr. Glenys Holly MCHC (RBC) [Mass/Vol] 33.8 g/dL Normal 29.9-35.2 [facility] Comment on above: Performed By: #### M G, CMP, TSH, T7, BNP #### [facility] [address] [place] [address] Dr. Glenys Holly MCV (RBC) [Entitic vol] 88.7 fL Normal 81.0-99.0 [facility] Comment on above: Performed By: #### M G, CMP, TSH, T7, BNP #### [facility] [address] [place] [address] Dr. Glenys Holly MONO # 1.3 103/ul Critically high 0.3-0.8 [facility] Comment on above: Performed By: #### M G, CMP, TSH, T7, BNP #### [facility] [address] [place] [address] Dr. Glenys Holly Monocytes/100 WBC (Bld) 13.2 % Critically high 1.7-12.0 [facility] Comment on above: Performed By: #### M G, CMP, TSH, T7, BNP #### [facility] [address] [address] [address] Glenys Holly NEUT # 6.8 103/ul Critically high 1.4-6.5 [facility] Comment on above: Performed By: #### M G, CMP, TSH, T7, BNP #### [facility] [address] [address] [address] Glenys Holly Neutrophils/100 WBC (Bld) 69.2 % Normal 43.0-75.0 [facility] Comment on above: Performed By: #### M G, CMP, TSH, T7, BNP #### [facility] [address] [address] [address] Glenys Holly Platelet mean volume (Bld) [Entitic vol] 11.6 fL Normal 9.5-13.5 [facility] Comment on above: Performed By: #### M G, CMP, TSH, T7, BNP #### [facility] [address] [address] [address] Glenys Holly PLT 329 103/ul Normal 150-450 [facility] Comment on above: Performed By: #### M G, CMP, TSH, T7, BNP #### [facility] [address] [place] [address] Dr. Glenys Holly RBC 4.70 106/ul Normal 4.20-5.40 [facility] Comment on above: Performed By: #### M G, CMP, TSH, T7, BNP #### [facility] [address] [place] [address] Dr. Glenys Holly WBC 9.9 103/ul Normal 4.0-11.0 [facility] Comment on above: Performed By: #### M G, CMP, TSH, T7, BNP #### [facility] [address] [place] [address] Dr. Glenys Holly PROF 14(COMP METB)on 022 Albumin [Mass/Vol] 3.0 g/dL Critically low 3.4-5.0 [facility] e [facility] Comment on above: Performed By: #### M G, CMP, TSH, T7, BNP #### [facility] [address] [place] [address] Dr. Glenys Holly Albumin/Globulin [Mass ratio] 1.1 {ratio} Normal [facility] Comment on above: Performed By: #### M G, CMP, TSH, T7, BNP #### [facility] [address] [place] [address] Dr. Glenys Holly ALP [Catalytic activity/Vol] 78 U/L Normal 46-116 [facility] Comment on above: Performed By: #### M G, CMP, TSH, T7, BNP #### [facility] [address] [place] [address] Dr. Glenys Holly ALT [Catalytic activity/Vol] 10 U/L Critically low 14-59 [facility] Comment on above: Performed By: #### M G, CMP, TSH, T7, BNP #### [facility] [address] [place] [address] Dr. Glenys Holly Anion gap [Moles/Vol] 9.6 mmol/L Normal [facility] Comment on above: Performed By: #### M G, CMP, TSH, T7, BNP #### [facility] [address] [place] [address] Dr. Glenys Holly AST [Catalytic activity/Vol] 18 U/L Normal 15-37 [facility] Comment on above: Performed By: #### M G, CMP, TSH, T7, BNP #### [facility] [address] [place] [address] Dr. Glenys Holly Bilirubin [Mass/Vol] 0.3 mg/dL Normal 0.2-1.0 [facility] Comment on above: Performed By: #### M G, CMP, TSH, T7, BNP #### [facility] [address] [place] [address] Dr. Glenys Holly Calcium [Mass/Vol] 9.1 mg/dL Normal 8.5-10.1 [facility] Comment on above: Performed By: #### M G, CMP, TSH, T7, BNP #### [facility] [address] [place] [address] Dr. Glenys Holly Chloride [Moles/Vol] 102 mmol/L Normal 98-107 [facility] Comment on above: Performed By: #### M G, CMP, TSH, T7, BNP #### [facility] [address] [place] [address] Dr. Glenys Holly CO2 [Moles/Vol] 30.3 mmol/L Normal 21.0-32.0 [facility] Comment on above: Performed By: #### M G, CMP, TSH, T7, BNP #### [facility] [address] [place] [address] Dr. Glenys Holly Creatinine [Mass/Vol] 0.83 mg/dL Normal 0.55-1.02 [facility] Comment on above: Performed By: #### M G, CMP, TSH, T7, BNP #### [facility] [address] [place] [address] Dr. Glenys Holly EGFR-AF SWEDISH >60 Normal >=60 [facility] Comment on above: Performed By: #### M G, CMP, TSH, T7, BNP #### [facility] [address] [place] [address] Dr. Glenys Holly EGFR-NON AF SWEDISH >60 Normal >=60 [facility] Comment on above: Performed By: #### M G, CMP, TSH, T7, BNP #### [facility] [address] [place] [address] Dr. Glenys Holly Globulin (S) [Mass/Vol] 2.8 g/dL Normal [facility] Comment on above: Performed By: #### M G, CMP, TSH, T7, BNP #### [facility] [address] [place] [address] Dr. Glenys Holly Glucose [Mass/Vol] 105 mg/dL Normal 74-106 [facility] Comment on above: Performed By: #### M G, CMP, TSH, T7, BNP #### [facility] [address] [place] [address] Dr. Glenys Holly Potassium [Moles/Vol] 2.9 mmol/L Critically low 3.5-5.1 [facility] Comment on above: Performed By: #### M G, CMP, TSH, T7, BNP #### [facility] [address] [address] [address] Glenys Holly Protein [Mass/Vol] 5.8 g/dL Critically low 6.4-8.2 [facility] Comment on above: Performed By: #### M G, CMP, TSH, T7, BNP #### [facility] [address] [address] [address] Glenys Holly Sodium [Moles/Vol] 138 mmol/L Normal 136-145 [facility] Comment on above: Performed By: #### M G, CMP, TSH, T7, BNP #### [facility] [address] [address] [address] Glenys Holly Urea nitrogen [Mass/Vol] 21.0 mg/dL Critically high 7.0-18.0 [facility] Comment on above: Performed By: #### M G, CMP, TSH, T7, BNP #### [facility] [address] [address] [address] Glenys Holly Urea nitrogen/Creatinine [Mass ratio] 25.3 mg/mg Normal [facility] Comment on above: Performed By: #### M G, CMP, TSH, T7, BNP #### [facility] [address] [address] [address] Glenys Holly TROPONIN, HIGH SENSITIVITYon 05-09-2022 HSTROP 49.8 pg/mL Normal 4.0-51.3 [facility] Comment on above: Result Comment: CUT- OFF POINTS HAVE BEEN ESTABLISHED BASED ON THE FOURTH UNIVERSAL DEFINITIONS OF MYOCARDIAL INFARCTION. THE UPPER REFERENCE LIMIT (URL) OF TROPONIN, DEFINED THE 99TH PERCENTILE OF cTnI DISTRIBUTION IN A REFERENCE POPULATION, HAS BEEN CONFIRMED THE DECISION THRESHOLD FOR IA DIAGNOSIS. Performed By: #### M G, CMP, TSH, T7, BNP #### [facility] [address] [address] [address] Glenys Holly BNPon 05-08-2022 Natriuretic peptide B (Bld) [Mass/Vol] 2723.0 pg/mL Critically high <=1,800.0 [facility] Comment on above: Performed By: #### C MP, HSTROPN, BNP ####[facility] [address] [address]Dr. Glenys Holly CBC AUTO DIFFon 05-08-2022 BASO # 0.0 103/ul Normal 0.0-0.1 [facility] Comment on above: Performed By: #### M G, CMP, TSH, T7, BNP #### [facility] [address] [address] [address] Glenys Holly Basophils/100 WBC (Bld) 0.2 % Normal 0.2-2.0 [facility] Comment on above: Performed By: #### M G, CMP, TSH, T7, BNP #### [facility] [address] [place] [address] Dr. Glenys Holly EO # 0.0 103/ul Normal 0.0-0.7 [facility] Comment on above: Performed By: #### M G, CMP, TSH, T7, BNP #### [facility] [address] [place] [address] Dr. Glenys Holly Eosinophils/100 WBC (Bld) 0.1 % Critically low 0.9-7.0 [facility] Comment on above: Performed By: #### M G, CMP, TSH, T7, BNP #### [facility] [address] [place] [address] Dr. Glenys Holly Erythrocyte distribution width (RBC) [Ratio] 15.9 % Critically high 11.0-15.0 [facility] Comment on above: Performed By: #### M G, CMP, TSH, T7, BNP #### [facility] [address] [place] [address] Dr. Glenys Holly Hematocrit (Bld) [Volume fraction] 38.0 % Normal 36.0-48.0 [facility] Comment on above: Performed By: #### M G, CMP, TSH, T7, BNP #### [facility] [address] [place] [address] Dr. Glenys Holly Hemoglobin (Bld) [Mass/Vol] 12.5 g/dL Normal 12.0-16.0 [facility] Comment on above: Performed By: #### M G, CMP, TSH, T7, BNP #### [facility] [address] [place] [address] Dr. Glenys Holly IG # 0.17 10e3/ul Critically high 0.00-0.03 [facility] Comment on above: Performed By: #### M G, CMP, TSH, T7, BNP #### [facility] [address] [place] [address] Dr. Glenys Holly IG % 1.1 % Critically high 0.0-0.5 [facility] Comment on above: Performed By: #### M G, CMP, TSH, T7, BNP #### [facility] [address] [place] [address] Dr. Glenys Holly LYMPH # 1.0 103/ul Critically low 1.2-3.8 [facility] Comment on above: Performed By: #### M G, CMP, TSH, T7, BNP #### [facility] [address] [place] [address] Dr. Glenys Holly Lymphocytes/100 WBC (Bld) 6.2 % Critically low 20.5-60.0 [facility] Comment on above: Performed By: #### M G, CMP, TSH, T7, BNP #### [facility] [address] [place] [address] Dr. Glenys Holly MANUAL DIFF REQ NO Normal [facility] Comment on above: Performed By: #### M G, CMP, TSH, T7, BNP #### [facility] [address] [place] [address] Dr. Glenys Holly MCH (RBC) [Entitic mass] 30.1 pg Normal 26.7-34.0 [facility] Comment on above: Performed By: #### M G, CMP, TSH, T7, BNP #### [facility] [address] [place] [address] Dr. Glenys Holly MCHC (RBC) [Mass/Vol] 32.9 g/dL Normal 29.9-35.2 [facility] Comment on above: Performed By: #### M G, CMP, TSH, T7, BNP #### [facility] [address] [place] [address] Dr. Glenys Holly MCV (RBC) [Entitic vol] 91.6 fL Normal 81.0-99.0 [facility] Comment on above: Performed By: #### M G, CMP, TSH, T7, BNP #### [facility] [address] [place] [address] Dr. Glenys Holly MONO # 0.8 103/ul Normal 0.3-0.8 [facility] Comment on above: Performed By: #### M G, CMP, TSH, T7, BNP #### [facility] [address] [place] [address] Dr. Glenys Holly Monocytes/100 WBC (Bld) 5.2 % Normal 1.7-12.0 [facility] Comment on above: Performed By: #### M G, CMP, TSH, T7, BNP #### [facility] [address] [place] [address] Dr. Glenys Holly NEUT # 14.0 103/ul Critically high 1.4-6.5 [facility] Comment on above: Performed By: #### M G, CMP, TSH, T7, BNP #### [facility] [address] [place] [address] Dr. Glenys Holly Neutrophils/100 WBC (Bld) 87.2 % Critically high 43.0-75.0 [facility] Comment on above: Performed By: #### M G, CMP, TSH, T7, BNP #### [facility] [address] [place] [address] Dr. Glenys Holly Platelet mean volume (Bld) [Entitic vol] 11.7 fL Normal 9.5-13.5 [facility] Comment on above: Performed By: #### M G, CMP, TSH, T7, BNP #### [facility] [address] [place] [address] Dr. Glenys Holly PLT 285 103/ul Normal 150-450 [facility] Comment on above: Performed By: #### M G, CMP, TSH, T7, BNP #### [facility] [address] [address] [address] Glenys Holly RBC 4.15 106/ul Critically low 4.20-5.40 [facility] Comment on above: Performed By: #### M G, CMP, TSH, T7, BNP #### [facility] [address] [address] [address] Glenys Holly WBC 16.0 103/ul Critically high 4.0-11.0 [facility] Comment on above: Performed By: #### M G, CMP, TSH, T7, BNP #### [facility] [address] [place] [address] Dr. Glenys Holly PROF 14(COMP METB)on 022 Albumin [Mass/Vol] 2.7 g/dL Critically low 3.4-5.0 [facility] Comment on above: Performed By: #### C MP, HSTROPN, BNP #### [facility] [address] [place] [address] Dr. Glenys Holly Albumin/Globulin [Mass ratio] 1.0 {ratio} Normal [facility] Comment on above: Performed By: #### C MP, HSTROPN, BNP #### [facility] [address] [place] [address] Dr. Glenys Holly ALP [Catalytic activity/Vol] 73 U/L Normal 46-116 [facility] Comment on above: Performed By: #### C MP, HSTROPN, BNP #### [facility] [address] [place] [address] Dr. Glenys Holly ALT [Catalytic activity/Vol] 11 U/L Critically low 14-59 [facility] Comment on above: Performed By: #### C MP, HSTROPN, BNP #### [facility] [address] [place] [address] Dr. Glenys Holly Anion gap [Moles/Vol] 10.5 mmol/L Normal [facility] Comment on above: Performed By: #### C MP, HSTROPN, BNP #### [facility] [address] [address] [address] Glenys Holly AST [Catalytic activity/Vol] 21 U/L Normal 15-37 [facility] Comment on above: Performed By: #### C MP, HSTROPN, BNP #### [facility] [address] [address] [address] Glenys Holly Bilirubin [Mass/Vol] 0.3 mg/dL Normal 0.2-1.0 [facility] Comment on above: Performed By: #### C MP, HSTROPN, BNP #### [facility] [address] [place] [address] Dr. Glenys Holly Calcium [Mass/Vol] 8.6 mg/dL Normal 8.5-10.1 [facility] Comment on above: Performed By: #### C MP, HSTROPN, BNP #### [facility] [address] [place] [address] Dr. Glenys Holly Chloride [Moles/Vol] 106 mmol/L Normal 98-107 [facility] Comment on above: Performed By: #### C MP, HSTROPN, BNP #### [facility] [address] [place] [address] Dr. Glenys Holly CO2 [Moles/Vol] 29.0 mmol/L Normal 21.0-32.0 [facility] Comment on above: Performed By: #### C MP, HSTROPN, BNP #### [facility] [address] [place] [address] Dr. Glenys Holly Creatinine [Mass/Vol] 0.88 mg/dL Normal 0.55-1.02 [facility] Comment on above: Performed By: #### C MP, HSTROPN, BNP #### [facility] [address] [place] [address] Dr. Glenys Holly EGFR-AF SWEDISH >60 Normal >=60 [facility] Comment on above: Performed By: #### C MP, HSTROPN, BNP #### [facility] [address] [place] [address] Dr. Glenys Holly EGFR-NON AF SWEDISH >60 Normal >=60 [facility] Comment on above: Performed By: #### C MP, HSTROPN, BNP #### [facility] [address] [address] [address] Glenys Holly Globulin (S) [Mass/Vol] 2.6 g/dL Normal [facility] Comment on above: Performed By: #### C MP, HSTROPN, BNP #### [facility] [address] [place] [address] Dr. Glenys Holly Glucose [Mass/Vol] 116 mg/dL Critically high 74-[address] [facility] Comment on above: Performed By: #### C MP, HSTROPN, BNP #### [facility] [address] [place] [address] Dr. Glenys Holly Potassium [Moles/Vol] 3.5 mmol/L Normal 3.5-5.1 [facility] Comment on above: Performed By: #### C MP, HSTROPN, BNP #### [facility] [address] [place] [address] Dr. Glenys Holly Protein [Mass/Vol] 5.3 g/dL Critically low 6.4-8.2 [facility] Comment on above: Performed By: #### C MP, HSTROPN, BNP #### [facility] [address] [place] [address] Dr. Glenys Holly Sodium [Moles/Vol] 142 mmol/L Normal 136-145 [facility] Comment on above: Performed By: #### C MP, HSTROPN, BNP #### [facility] [address] [place] [address] Dr. Glenys Holly Urea nitrogen [Mass/Vol] 23.0 mg/dL Critically high 7.0-18.0 [facility] Comment on above: Performed By: #### C MP, HSTROPN, BNP #### [facility] [address] [place] [address] Dr. Glenys Holly Urea nitrogen/Creatinine [Mass ratio] 26.1 mg/mg [facility] Comment on above: Performed By: #### C MP, HSTROPN, BNP #### [facility] [address] [address] [address] Glenys Holly TROPONIN, HIGH SENSITIVITYon 05-08-2022 HSTROP 60.8 pg/mL Critically high 4.0-51.3 [facility] Comment on above: Result Comment: CUT- OFF POINTS HAVE BEEN ESTABLISHED BASED ON THE FOURTH UNIVERSAL DEFINITIONS OF MYOCARDIAL INFARCTION. THE UPPER REFERENCE LIMIT (URL) OF TROPONIN, DEFINED THE 99TH PERCENTILE OF cTnI DISTRIBUTION IN A REFERENCE POPULATION, HAS BEEN CONFIRMED THE DECISION THRESHOLD FOR IA DIAGNOSIS. Performed By: #### C MP, HSTROPN, BNP ####[facility] [address] [address]Dr. Glenys Holly BNPon 05-07-2022 Natriuretic peptide B (Bld) [Mass/Vol] 1476.0 pg/mL Normal <=1,800.0 [facility] Comment on above: Performed By: #### C MP, HSTROPN, BNP ####[facility] [address] [address]Dr. Glenys Holly CBC AUTO DIFFon 05-07-2022 BASO # 0.0 103/ul Normal 0.0-0.1 [facility] Comment on above: Performed By: #### M G, CMP, TSH, T7, BNP #### [facility] [address] [address] [address] Glenys Holly Basophils/100 WBC (Bld) 0.1 % Critically low 0.2-2.0 [facility] Comment on above: Performed By: #### M G, CMP, TSH, T7, BNP #### [facility] [address] [address] [address] Glenys Holly EO # 0.0 103/ul Normal 0.0-0.7 [facility] Comment on above: Performed By: #### M G, CMP, TSH, T7, BNP #### [facility] [address] [address] [address] Glenys Holly Eosinophils/100 WBC (Bld) 0.0 % Critically low 0.9-7.0 [facility] Comment on above: Performed By: #### M G, CMP, TSH, T7, BNP #### [facility] [address] [place] [address] Dr. Glenys Holly Erythrocyte distribution width (RBC) [Ratio] 16.3 % Critically high 11.0-15.0 [facility] Comment on above: Performed By: #### M G, CMP, TSH, T7, BNP #### [facility] [address] [place] [address] Dr. Glenys Holly Hematocrit (Bld) [Volume fraction] 34.1 % Critically low 36.0-48.0 [facility] Comment on above: Performed By: #### M G, CMP, TSH, T7, BNP #### [facility] [address] [place] [address] Dr. Glenys Holly Hemoglobin (Bld) [Mass/Vol] 11.2 g/dL Critically low 12.0-16.0 [facility] Comment on above: Performed By: #### M G, CMP, TSH, T7, BNP #### [facility] [address] [place] [address] Dr. Glenys Holly IG # 0.22 10e3/ul Critically high 0.00-0.03 [facility] Comment on above: Performed By: #### M G, CMP, TSH, T7, BNP #### [facility] [address] [place] [address] Dr. Glenys Holly IG % 1.0 % Critically high 0.0-0.5 [facility] Comment on above: Performed By: #### M G, CMP, TSH, T7, BNP #### [facility] [address] [place] [address] Dr. Glenys Holly LYMPH # 1.3 103/ul Normal 1.2-3.8 [facility] Comment on above: Performed By: #### M G, CMP, TSH, T7, BNP #### [facility] [address] [place] [address] Dr. Glenys Holly Lymphocytes/100 WBC (Bld) 6.0 % Critically low 20.5-60.0 [facility] Comment on above: Performed By: #### M G, CMP, TSH, T7, BNP #### [facility] [address] [place] [address] Dr. Glenys Holly MANUAL DIFF REQ NO Normal [facility] Comment on above: Performed By: #### M G, CMP, TSH, T7, BNP #### [facility] [address] [place] [address] Dr. Glenys Holly MCH (RBC) [Entitic mass] 30.7 pg Normal 26.7-34.0 [facility] Comment on above: Performed By: #### M G, CMP, TSH, T7, BNP #### [facility] [address] [place] [address] Dr. Glenys Holly MCHC (RBC) [Mass/Vol] 32.8 g/dL Normal 29.9-35.2 [facility] Comment on above: Performed By: #### M G, CMP, TSH, T7, BNP #### [facility] [address] [place] [address] Dr. Glenys Holly MCV (RBC) [Entitic vol] 93.4 fL Normal 81.0-99.0 [facility] Comment on above: Performed By: #### M G, CMP, TSH, T7, BNP #### [facility] [address] [place] [address] Dr. Glenys Holly MONO # 1.1 103/ul Critically high 0.3-0.8 [facility] Comment on above: Performed By: #### M G, CMP, TSH, T7, BNP #### [facility] [address] [place] [address] Dr. Glenys Holly Monocytes/100 WBC (Bld) 4.8 % Normal 1.7-12.0 [facility] Comment on above: Performed By: #### M G, CMP, TSH, T7, BNP #### [facility] [address] [place] [address] Dr. Glenys Holly NEUT # 19.4 103/ul Critically high 1.4-6.5 [facility] Comment on above: Performed By: #### M G, CMP, TSH, T7, BNP #### [facility] [address] [address] [address] Glenys Holly Neutrophils/100 WBC (Bld) 88.1 % Critically high 43.0-75.0 [facility] Comment on above: Performed By: #### M G, CMP, TSH, T7, BNP #### [facility] [address] [address] [address] Glenys Holly Platelet mean volume (Bld) [Entitic vol] 11.6 fL Normal 9.5-13.5 [facility] Comment on above: Performed By: #### M G, CMP, TSH, T7, BNP #### [facility] [address] [address] [address] Glenys Holly PLT 309 103/ul Normal 150-450 [facility] Comment on above: Performed By: #### M G, CMP, TSH, T7, BNP #### [facility] [address] [place] [address] Dr. Glenys Holly RBC 3.65 106/ul Critically low 4.20-5.40 [facility] Comment on above: Performed By: #### M G, CMP, TSH, T7, BNP #### [facility] [address] [place] [address] Dr. Glenys Holly WBC 22.0 103/ul Critically high 4.0-11.0 [facility] Comment on above: Performed By: #### M G, CMP, TSH, T7, BNP #### [facility] [address] [place] [address] Dr. Glenys Holly PROF 14(COMP METB)on 022 Albumin [Mass/Vol] 2.5 g/dL Critically low 3.4-5.0 e [facility] Comment on above: Performed By: #### C MP, HSTROPN, BNP ####[facility] [address] [address]Dr. Glenys Holly Albumin/Globulin [Mass ratio] 1.0 {ratio} Normal [facility] Comment on above: Performed By: #### C MP, HSTROPN, BNP ####[facility] [address] [address]Dr. Glenys Holly ALP [Catalytic activity/Vol] 69 U/L Normal 46-116 [facility] Comment on above: Performed By: #### C MP, HSTROPN, BNP ####[facility] [address] [address]Dr. Glenys Holly ALT [Catalytic activity/Vol] 12 U/L Critically low 14-59 [facility] Comment on above: Performed By: #### C MP, HSTROPN, BNP ####[facility] [address] [address]Dr. Glenys Holly Anion gap [Moles/Vol] 10.9 mmol/L Normal [facility] Comment on above: Performed By: #### C MP, HSTROPN, BNP ####[facility] [address] [place], [place] [address]Dr. Glenys Holly AST [Catalytic activity/Vol] 25 U/L Normal 15-37 [facility] Comment on above: Performed By: #### C MP, HSTROPN, BNP ####[facility] [address] [address]Dr. Glenys Holly Bilirubin [Mass/Vol] 0.1 mg/dL Critically low 0.2-1.0 [facility] Comment on above: Performed By: #### C MP, HSTROPN, BNP ####[facility] [address] [place], [place] [address]Dr. Glenys Holly Calcium [Mass/Vol] 9.1 mg/dL Normal 8.5-10.1 [facility] Comment on above: Performed By: #### C MP, HSTROPN, BNP ####[facility] [address] [address]Dr. Glenys Holly Chloride [Moles/Vol] 110 mmol/L Critically high 98-107 [facility] Comment on above: Performed By: #### C MP, HSTROPN, BNP ####[facility] [address] [address]Dr. Glenys Holly CO2 [Moles/Vol] 24.8 mmol/L Normal 21.0-32.0 [facility] Comment on above: Performed By: #### C MP, HSTROPN, BNP ####[facility] [address] [address]Dr. Glenys Holly Creatinine [Mass/Vol] 0.87 mg/dL Normal 0.55-1.02 [facility] Comment on above: Performed By: #### C MP, HSTROPN, BNP ####[facility] [address] [address]Dr. Glenys Holly EGFR-AF SWEDISH >60 Normal >=60 [facility] Comment on above: Performed By: #### C MP, HSTROPN, BNP ####[facility] [address] [place], [place] [address]Dr. Glenys Holly EGFR-NON AF SWEDISH >60 Normal >=60 [facility] Comment on above: Performed By: #### C MP, HSTROPN, BNP ####[facility] [address] [place], [place] [address]Dr. Glenys Holly Globulin (S) [Mass/Vol] 2.5 g/dL Normal [facility] Comment on above: Performed By: #### C MP, HSTROPN, BNP ####[facility] [address] [address]Dr. Glenys Holly Glucose [Mass/Vol] 128 mg/dL Critically high 74-[address] [facility] Comment on above: Performed By: #### C MP, HSTROPN, BNP ####[facility] [address] [place], [place] [address]Dr. Glenys Holly Potassium [Moles/Vol] 4.7 mmol/L Normal 3.5-5.1 [facility] Comment on above: Performed By: #### C MP, HSTROPN, BNP ####[facility] [address] [address]Dr. Glenys Holly Protein [Mass/Vol] 5.0 g/dL Critically low 6.4-8.2 [facility] Comment on above: Performed By: #### C MP, HSTROPN, BNP ####[facility] [address] [place] [address]Dr. Glenys Holly Sodium [Moles/Vol] 141 mmol/L Normal 136-145 [facility] Comment on above: Performed By: #### C MP, HSTROPN, BNP ####[facility] [address] [place] [address]Dr. Glenys Holly Urea nitrogen [Mass/Vol] 28.0 mg/dL Critically high 7.0-18.0 [facility] Comment on above: Performed By: #### C MP, HSTROPN, BNP ####[facility] [address] [place] [address]Dr. Glenys Holly Urea nitrogen/Creatinine [Mass ratio] 32.2 mg/mg Normal [facility] Comment on above: Performed By: #### C MP, HSTROPN, BNP ####[facility] [address] [place] [address]Dr. Glenys Holly TROPONIN, HIGH SENSITIVITYon 05-07-2022 HSTROP 78.5 pg/mL Critically high 4.0-51.3 [facility] Comment on above: Result Comment: CUT- OFF POINTS HAVE BEEN ESTABLISHED BASED ON THE FOURTH UNIVERSAL DEFINITIONS OF MYOCARDIAL INFARCTION. THE UPPER REFERENCE LIMIT (URL) OF TROPONIN, DEFINED THE 99TH PERCENTILE OF cTnI DISTRIBUTION IN A REFERENCE POPULATION, HAS BEEN CONFIRMED THE DECISION THRESHOLD FOR IA DIAGNOSIS. Performed By: #### C MP, HSTROPN, BNP ####[facility] [address] [place] [address]Dr. Glenys Holly XR CHEST 2 Von 05-07-2022 [...] SUPA DEAN Date: 2022-05-07 10:34 Normal [facility] BNPon 05-06-2022 Natriuretic peptide B (Bld) [Mass/Vol] 1143.0 pg/mL Normal <=1,800.0 [facility] Comment on above: Performed By: #### C MP, BNP ####[facility] [address] [place] [address]Dr. Glenys Holly CBC AUTO DIFFon 05-06-2022 BASO # 0.0 103/ul Normal 0.0-0.1 [facility] Comment on above: Performed By: #### M G, CMP, TSH, T7, BNP #### [facility] [address] [address] [address] Glenys Holly Basophils/100 WBC (Bld) 0.1 % Critically low 0.2-2.0 [facility] Comment on above: Performed By: #### M G, CMP, TSH, T7, BNP #### [facility] [address] [address] [address] Glenys Holly EO # 0.0 103/ul Normal 0.0-0.7 [facility] Comment on above: Performed By: #### M G, CMP, TSH, T7, BNP #### [facility] [address] [address] [address] Glenys Holly Eosinophils/100 WBC (Bld) 0.0 % Critically low 0.9-7.0 [facility] Comment on above: Performed By: #### M G, CMP, TSH, T7, BNP #### [facility] [address] [address] [address] Glenys Holly Erythrocyte distribution width (RBC) [Ratio] 15.8 % Critically high 11.0-15.0 [facility] Comment on above: Performed By: #### M G, CMP, TSH, T7, BNP #### [facility] [address] [place] [address] Dr. Glenys Holly Hematocrit (Bld) [Volume fraction] 36.7 % Normal 36.0-48.0 [facility] Comment on above: Performed By: #### M G, CMP, TSH, T7, BNP #### [facility] [address] [place] [address] Dr. Glenys Holly Hemoglobin (Bld) [Mass/Vol] 12.3 g/dL Normal 12.0-16.0 [facility] Comment on above: Performed By: #### M G, CMP, TSH, T7, BNP #### [facility] [address] [place] [address] Dr. Glenys Holly IG # 0.10 10e3/ul Critically high 0.00-0.03 [facility] Comment on above: Performed By: #### M G, CMP, TSH, T7, BNP #### [facility] [address] [place] [address] Dr. Glenys Holly IG % 0.5 % Normal 0.0-0.5 [facility] Comment on above: Performed By: #### M G, CMP, TSH, T7, BNP #### [facility] [address] [place] [address] Dr. Glenys Holly LYMPH # 1.4 103/ul Normal 1.2-3.8 [facility] Comment on above: Performed By: #### M G, CMP, TSH, T7, BNP #### [facility] [address] [place] [address] Dr. Glenys Holly Lymphocytes/100 WBC (Bld) 7.2 % Critically low 20.5-60.0 [facility] Comment on above: Performed By: #### M G, CMP, TSH, T7, BNP #### [facility] [address] [place] [address] Dr. Glenys Holly MANUAL DIFF REQ NO Normal [facility] Comment on above: Performed By: #### M G, CMP, TSH, T7, BNP #### [facility] [address] [place] [address] Dr. Glenys Holly MCH (RBC) [Entitic mass] 30.9 pg Normal 26.7-34.0 [facility] Comment on above: Performed By: #### M G, CMP, TSH, T7, BNP #### [facility] [address] [place] [address] Dr. Glenys Holly MCHC (RBC) [Mass/Vol] 33.5 g/dL Normal 29.9-35.2 [facility] Comment on above: Performed By: #### M G, CMP, TSH, T7, BNP #### [facility] [address] [place] [address] Dr. Glenys Holly MCV (RBC) [Entitic vol] 92.2 fL Normal 81.0-99.0 [facility] Comment on above: Performed By: #### M G, CMP, TSH, T7, BNP #### [facility] [address] [place] [address] Dr. Glenys Holly MONO # 0.9 103/ul Critically high 0.3-0.8 [facility] Comment on above: Performed By: #### M G, CMP, TSH, T7, BNP #### [facility] [address] [place] [address] Dr. Glenys Holly Monocytes/100 WBC (Bld) 4.6 % Normal 1.7-12.0 [facility] Comment on above: Performed By: #### M G, CMP, TSH, T7, BNP #### [facility] [address] [place] [address] Dr. Glenys Holly NEUT # 17.4 103/ul Critically high 1.4-6.5 [facility] Comment on above: Performed By: #### M G, CMP, TSH, T7, BNP #### [facility] [address] [place] [address] Dr. Glenys Holly Neutrophils/100 WBC (Bld) 87.6 % Critically high 43.0-75.0 [facility] Comment on above: Performed By: #### M G, CMP, TSH, T7, BNP #### [facility] [address] [address] [address] Glenys Holly Platelet mean volume (Bld) [Entitic vol] 11.2 fL Normal 9.5-13.5 [facility] Comment on above: Performed By: #### M G, CMP, TSH, T7, BNP #### [facility] [address] [address] [address] Glenys Holly PLT 310 103/ul Normal 150-450 [facility] Comment on above: Performed By: #### M G, CMP, TSH, T7, BNP #### [facility] [address] [address] [address] Glenys Holly RBC 3.98 106/ul Critically low 4.20-5.40 [facility] Comment on above: Performed By: #### M G, CMP, TSH, T7, BNP #### [facility] [address] [place] [address] Dr. Glenys Holly WBC 19.8 103/ul Critically high 4.0-11.0 [facility] Comment on above: Performed By: #### M G, CMP, TSH, T7, BNP #### [facility] [address] [place] [address] Dr. Glenys Holly LACTATE/LACTIC ACIDon 2021 Lactate [Moles/Vol] 1.1 mmol/L Normal 0.4-1.9 [facility] Comment on above: Performed By: #### M G, CMP, TSH, T7, BNP #### [facility] [address] [place] [address] Dr. Glenys Holly POINT OF CARE GLUCOSEon 04-12 Glucose [Mass/Vol] 164 mg/dL Critically high 74-106 [facility] Comment on above: Performed By: #### M G, CMP, TSH, T7, BNP #### [facility] [address] [place] [address] Dr. Glenys Holly PROF 14(COMP METB)on 022 Albumin [Mass/Vol] 2.6 g/dL Critically low 3.4-5.0 [facility] Comment on above: Performed By: #### C MP, BNP ####[facility] [address] [place] [address]Dr. Glenys Avni Albumin/Globulin [Mass ratio] 1.0 {ratio} Normal [facility] Comment on above: Performed By: #### C MP, BNP ####[facility] [address] [place] [id number]. Karinaparmjit Holly ALP [Catalytic activity/Vol] 88 U/L Normal 46-116 [facility] Comment on above: Performed By: #### C MP, BNP ####[facility] [address] [place] [address]Dr. Glenys Holly ALT [Catalytic activity/Vol] 1 U/L Critically low 14-59 [facility] Comment on above: Performed By: #### C MP, BNP ####[facility] [address] [place] [address]Dr. Glenys Holly Anion gap [Moles/Vol] 9.9 mmol/L Normal [facility] Comment on above: Performed By: #### C MP, BNP ####[facility] [address] [place] [address]Dr. Karinaparmjit Holly AST [Catalytic activity/Vol] 19 U/L Normal 15-37 [facility] Comment on above: Performed By: #### C MP, BNP ####[facility] [address] [place] [address]Dr. Glenys Holly Bilirubin [Mass/Vol] 0.2 mg/dL Normal 0.2-1.0 [facility] Comment on above: Performed By: #### C MP, BNP ####[facility] [address] [place] [address]Dr. Glenys Holly Calcium [Mass/Vol] 8.7 mg/dL Normal 8.5-10.1 [facility] Comment on above: Performed By: #### C MP, BNP ####[facility] [address] [place] [address]Dr. Glenys Holly Chloride [Moles/Vol] 108 mmol/L Critically high 98-107 [facility] Comment on above: Performed By: #### C MP, BNP ####[facility] [address] [place] [address]Dr. Glenys Holly CO2 [Moles/Vol] 25.2 mmol/L Normal 21.0-32.0 [facility] Comment on above: Performed By: #### C MP, BNP ####[facility] [address] [place] [address]Dr. Glenys Holly Creatinine [Mass/Vol] 0.80 mg/dL Normal 0.55-1.02 [facility] Comment on above: Performed By: #### C MP, BNP ####[facility] [address] [place], [place] [address]Dr. Glenys Holly EGFR-AF SWEDISH >60 Normal >=60 [facility] Comment on above: Performed By: #### C MP, BNP ####[facility] [address] [place], [place] [address]Dr. Glenys Holly EGFR-NON AF SWEDISH >60 Normal >=60 [facility] Comment on above: Performed By: #### C MP, BNP ####[facility] [address] [place], [place] [address]Dr. Glenys Holly Globulin (S) [Mass/Vol] 2.7 g/dL Normal [facility] Comment on above: Performed By: #### C MP, BNP ####[facility] [address] [place] [address]Dr. Glenys Holly Glucose [Mass/Vol] 123 mg/dL Critically high 74-106 [facility] Comment on above: Performed By: #### C MP, BNP ####[facility] [address] [place], [place] [address]Dr. Glenys Holly Potassium [Moles/Vol] 4.1 mmol/L Normal 3.5-5.1 [facility] Comment on above: Performed By: #### C MP, BNP ####[facility] [address] [place], [place] [address]Dr. Glenys Holly Protein [Mass/Vol] 5.3 g/dL Critically low 6.4-8.2 [facility] Comment on above: Performed By: #### C MP, BNP ####[facility] [address] [place], [place] [address]Ib. Glenys Holly Sodium [Moles/Vol] 139 mmol/L Normal 136-145 [facility] Comment on above: Performed By: #### C MP, BNP ####[facility] [address] [place] [id number]. Glenys Holly Urea nitrogen [Mass/Vol] 22.0 mg/dL Critically high 7.0-18.0 [facility] Comment on above: Performed By: #### C MP, BNP ####[facility] [address] [place] [id number]. Glenys Holly Urea nitrogen/Creatinine [Mass ratio] 27.5 mg/mg Normal [facility] Comment on above: Performed By: #### C MP, BNP ####[facility] [address] [place] [address]DrRatna Holly T3, TOTAL (TRIIODOTHYRONINE) on 05-06-2022 T3, TOTAL 69 ng/dL Critically low 71-180 [facility] Comment on above: Performed By: #### M G, CMP, TSH, T7, BNP #### [facility] [address] [address] [address] Glenys Holly TROPONIN, HIGH SENSITIVITYon 05-06-2022 HSTROP 141.0 pg/mL Critically high 4.0-51.3 [facility] Comment on above: Result Comment: CUT- OFF POINTS HAVE BEEN ESTABLISHED BASED ON THE FOURTH UNIVERSAL DEFINITIONS OF MYOCARDIAL INFARCTION. THE UPPER REFERENCE LIMIT (URL) OF TROPONIN, DEFINED THE 99TH PERCENTILE OF cTnI DISTRIBUTION IN A REFERENCE POPULATION, HAS BEEN CONFIRMED THE DECISION THRESHOLD FOR IA DIAGNOSIS. Performed By: #### M G, CMP, TSH, T7, BNP #### [facility] [address] [address] [address] Glenys Holly AMYLASEon 05-05-2022 Amylase [Catalytic activity/Vol] 26 U/L Normal 25-115 [facility] Comment on above: Performed By: #### M G, CMP, TSH, T7, BNP #### [facility] [address] [address] [address] Glenys Holly BNPon 05-05-2022 Natriuretic peptide B (Bld) [Mass/Vol] 811.0 pg/mL Normal <=1,800.0 [facility] Comment on above: Performed By: #### M G, CMP, TSH, T7, BNP #### [facility] [address] [address] [address] Glenys Holly CARDIAC ADEEL 3-6on 2 CK [Catalytic activity/Vol] 33 U/L Normal 26-192 [facility] Comment on above: Performed By: #### C MREP ####[facility] [address] [place] [address]Dr. Glenys Holly CK.MB [Mass/Vol] 1.13 ng/mL Normal <=3.60 [facility] Comment on above: Performed By: #### C MREP ####[facility] [address] [place] [address]Dr. Glenys Holly HSTROP 164.3 pg/mL Critically high 4.0-51.3 [facility] Comment on above: Result Comment: CUT- OFF POINTS HAVE BEEN ESTABLISHED BASED ON THE FOURTH UNIVERSAL DEFINITIONS OF MYOCARDIAL INFARCTION. THE UPPER REFERENCE LIMIT (URL) OF TROPONIN, DEFINED THE 99TH PERCENTILE OF cTnI DISTRIBUTION IN A REFERENCE POPULATION, HAS BEEN CONFIRMED THE DECISION THRESHOLD FOR IA DIAGNOSIS. Performed By: #### C MREP ####[facility] [address] [place] [address]Dr. Glenys Holly CK [Catalytic activity/Vol] 38 U/L Normal 26-192 [facility] Comment on above: Performed By: #### M G, CMP, TSH, T7, BNP #### [facility] [address] [address] [address] Glenys Holly CK.MB [Mass/Vol] 0.91 ng/mL Normal <=3.60 [facility] Comment on above: Performed By: #### M G, CMP, TSH, T7, BNP #### [facility] [address] [address] [address] Glenys Holly HSTROP 178.2 pg/mL Critically high 4.0-51.3 [facility] Comment on above: Result Comment: CUT- OFF POINTS HAVE BEEN ESTABLISHED BASED ON THE FOURTH UNIVERSAL DEFINITIONS OF MYOCARDIAL INFARCTION. THE UPPER REFERENCE LIMIT (URL) OF TROPONIN, DEFINED THE 99TH PERCENTILE OF cTnI DISTRIBUTION IN A REFERENCE POPULATION, HAS BEEN CONFIRMED THE DECISION THRESHOLD FOR IA DIAGNOSIS. Performed By: #### M G, CMP, TSH, T7, BNP #### [facility] [address] [address] [address] Glenys Holly CARDIAC ADEEL ADMITon 022 CK [Catalytic activity/Vol] 29 U/L Normal 26-192 [facility] Comment on above: Performed By: #### M G, CMP, TSH, T7, BNP #### [facility] [address] [place] [address] Dr. Glenys Holly CK.MB [Mass/Vol] 0.73 ng/mL Normal <=3.60 [facility] Comment on above: Performed By: #### M G, CMP, TSH, T7, BNP #### [facility] [address] [place] [address] Dr. Glenys Holly HSTROP 191.6 pg/mL Critically high 4.0-51.3 [facility] Comment on above: Result Comment: CUT- OFF POINTS HAVE BEEN ESTABLISHED BASED ON THE FOURTH UNIVERSAL DEFINITIONS OF MYOCARDIAL INFARCTION. THE UPPER REFERENCE LIMIT (URL) OF TROPONIN, DEFINED THE 99TH PERCENTILE OF cTnI DISTRIBUTION IN A REFERENCE POPULATION, HAS BEEN CONFIRMED THE DECISION THRESHOLD FOR IA DIAGNOSIS. Performed By: #### M G, CMP, TSH, T7, BNP #### [facility] [address] [place] [address] Dr. Glenys Holly NEO 79 ng/mL Normal 9-82 [facility] Comment on above: Performed By: #### M G, CMP, TSH, T7, BNP #### [facility] [address] [place] [address] Dr. Glenys Holly CBC W MANUAL DIFFon 05-05-20 22 ANISOCYTOSIS 1+ Normal [facility] Comment on above: Performed By: #### M G, CMP, TSH, T7, BNP #### [facility] [address] [place] [address] Dr. Glenys Holly ATYPICAL LYMPH # Normal [facility] Comment on above: Performed By: #### M G, CMP, TSH, T7, BNP #### [facility] [address] [place] [address] Dr. Glenys Holly ATYPICAL LYMPH % Normal [facility] Comment on above: Performed By: #### M G, CMP, TSH, T7, BNP #### [facility] [address] [place] [address] Dr. Glenys Holly BAND # 0.2 103/ul Normal 0.0-0.3 [facility] Comment on above: Performed By: #### M G, CMP, TSH, T7, BNP #### [facility] [address] [place] [address] Dr. Glenys Holly BAND % 1 % Normal 0-5 [facility] Comment on above: Performed By: #### M G, CMP, TSH, T7, BNP #### [facility] [address] [place] [address] Dr. Glenys Holly BASOM # 0.00 103/ul Normal 0.00-0.10 [facility] Comment on above: Performed By: #### M G, CMP, TSH, T7, BNP #### [facility] [address] [place] [address] Dr. Glenys Holly BASOM % 0.0 % Critically low 0.2-2.0 [facility] Comment on above: Performed By: #### M G, CMP, TSH, T7, BNP #### [facility] [address] [place] [address] Dr. Glenys Holly BLAST # Normal [facility] Comment on above: Performed By: #### M G, CMP, TSH, T7, BNP #### [facility] [address] [place] [address] Dr. Glenys Holly BLAST % Normal [facility] Comment on above: Performed By: #### M G, CMP, TSH, T7, BNP #### [facility] [address] [place] [address] Dr. Glenys Holly CORRECTED WBC Normal 4.0-11.0 [facility] Comment on above: Performed By: #### M G, CMP, TSH, T7, BNP #### [facility] [address] [place] [address] Dr. Glenys Holly EOS # 0.00 103/ul Normal 0.00-0.70 [facility] Comment on above: Performed By: #### M G, CMP, TSH, T7, BNP #### [facility] [address] [place] [address] Dr. Glenys Holly EOS% 0.0 % Critically low 0.9-7.0 [facility] Comment on above: Performed By: #### M G, CMP, TSH, T7, BNP #### [facility] [address] [place] [address] Dr. Glenys Holly HCT 41.5 % Normal 36.0-48.0 [facility] Comment on above: Performed By: #### M G, CMP, TSH, T7, BNP #### [facility] [address] [place] [address] Dr. Glenys Holly HGB 14.2 g/dl Normal 12.0-16.0 [facility] Comment on above: Performed By: #### M G, CMP, TSH, T7, BNP #### [facility] [address] [place] [address] Dr. Glenys Holly LYMPHM # 0.96 103/ul Critically low 1.20-3.80 [facility] Comment on above: Performed By: #### M G, CMP, TSH, T7, BNP #### [facility] [address] [place] [address] Dr. Glenys Holly LYMPHM% 6.0 % Critically low 20.5-60.0 [facility] Comment on above: Performed By: #### M G, CMP, TSH, T7, BNP #### [facility] [address] [place] [address] Dr. Glenys Holly MCH 31.0 pg Normal 26.7-34.0 [facility] Comment on above: Performed By: #### M G, CMP, TSH, T7, BNP #### [facility] [address] [address] [address] Glenys Holly MCHC 34.2 g/dl Normal 29.9-35.2 [facility] Comment on above: Performed By: #### M G, CMP, TSH, T7, BNP #### [facility] [address] [address] [address] Glenys Holly MCV 90.6 fL Normal 81.0-99.0 [facility] Comment on above: Performed By: #### M G, CMP, TSH, T7, BNP #### [facility] [address] [address] [address] Glenys Holly METAMYELOCYTE # Normal [facility] Comment on above: Performed By: #### M G, CMP, TSH, T7, BNP #### [facility] [address] [address] [address] Glenys Holly METAMYELOCYTE % Normal [facility] Comment on above: Performed By: #### M G, CMP, TSH, T7, BNP #### [facility] [address] [address] [address] Glenys Holly MONOM# 2.56 103/ul Critically high 0.30-0.80 [facility] Comment on above: Performed By: #### M G, CMP, TSH, T7, BNP #### [facility] [address] [address] [address] Glenys Holly MONOM% 16.0 % Critically high 1.7-12.0 [facility] Comment on above: Performed By: #### M G, CMP, TSH, T7, BNP #### [facility] [address] [address] [address] Glenys Holly MPV 11.1 fL Normal 9.5-13.5 [facility] Comment on above: Performed By: #### M G, CMP, TSH, T7, BNP #### [facility] [address] [address] [address] Glenys Holly MYELOCYTE # Normal [facility] Comment on above: Performed By: #### M G, CMP, TSH, T7, BNP #### [facility] [address] [place] [address] Dr. Glenys Holly MYELOCYTE % Normal [facility] Comment on above: Performed By: #### M G, CMP, TSH, T7, BNP #### [facility] [address] [place] [address] Dr. Glenys Holly NRBC Normal [facility] Comment on above: Performed By: #### M G, CMP, TSH, T7, BNP #### [facility] [address] [address] [address] Glenys Holly PLT 352 103/ul Normal 150-450 [facility] Comment on above: Performed By: #### M G, CMP, TSH, T7, BNP #### [facility] [address] [place] [address] Dr. Glenys Holly RBC 4.58 106/ul Normal 4.20-5.40 [facility] Comment on above: Performed By: #### M G, CMP, TSH, T7, BNP #### [facility] [address] [place] [address] Dr. Glenys Holly RDW 15.2 % Critically high 11.0-15.0 [facility] Comment on above: Performed By: #### M G, CMP, TSH, T7, BNP #### [facility] [address] [place] [address] Dr. Glenys Holly SEG # 12.32 103/ul Critically high 1.40-6.50 [facility] Comment on above: Performed By: #### M G, CMP, TSH, T7, BNP #### [facility] [address] [place] [address] Dr. Glenys Holly SEG % 77.0 % Critically high 43.0-75.0 [facility] Comment on above: Performed By: #### M G, CMP, TSH, T7, BNP #### [facility] [address] [place] [address] Dr. Glenys Holly WBC 16.0 103/ul Critically high 4.0-11.0 [facility] Comment on above: Performed By: #### M G, CMP, TSH, T7, BNP #### [facility] [address] [place], [place] [address] Dr. Glenys Holly CTA CHEST WO W [...] YULISSA TALBERT Date: 2022-05-05 09:32 Normal [facility] CULTURE BLOODon 05-05-2022 Microscopic examination of blood, culture Culture Observations: NO GROWTH AT 5 DAYS. Normal [facility] Comment on above: Performed By: #### B [id number] ####[facility] [id number] [place], [place] [address]ZrDr. Glenys Holly Microscopic examination of blood, culture Culture Observations: NO GROWTH AT 5 DAYS. Normal [facility] Comment on above: Performed By: #### B LDCX1 ####[facility] [id number] [place], [place] [address]Wg. Glenys Holly CULTURE URINEon 05-05-2022 CULTURE URINE Culture Observations : LIGHT GROWTH OF MIXED GENITAL NIDA. NO POTENTIAL PATHOGENS SEEN. Normal [facility] Comment on above: Performed By: #### U RCX ####[facility] [id number] [place], [place] [address]Ux. Glenys Holly Covid-19 PCR (CVDTB)on 04-12 SARS-CoV-2 (COVID-19) RNA KINZA+probe Ql (Unsp spec) Not detected Normal NOT DETECTED [facility] Comment on above: Result Comment: When [...] for this test is supported by the [place] of [employer] and Human Service's declaration that [...] used). Performed By: #### C VDTBH #### [facility] [address] [place], [place] [address] Dr. Glenys Holly ECHOCARDIO M/2D COMPLETEon 1 07-05-2021 ECHOCARDIO M/2D COMPLETE Patient: JUDITH KHAN Exam Date: 05/05/2022 : 1945 Gender:F Ordering : DR KAVON SAMS . Admission #: [id number] Family : Order #: [id number] CLICK HERE TO VIEW EXAM ECHOCARDIOGRAM REPORT [...] Neal M.D. on 05/10/2022 at 13:12 Normal [facility] INFLUENZA A AND B AGon 05-05 INFLUANEGH SEE BELOW [place] [facility] Comment on above: Result Comment: Nega tive for Flu A protein angiten. Infection due to Flu A cannot be ruled out. Flu A angiten in the sample may be below the detection limit of the test. Performed By: #### M G, CMP, TSH, T7, BNP #### [facility] [address] [place] [address] Dr. Glenys Holly [facility] SEE BELOW Normal [facility] Comment on above: Result Comment: Nega tive for Flu B protein antigen. Infection due to Flu B cannot be ruled out. Flu B antigen in the sample may be below the detection limit of the test. Performed By: #### M G, CMP, TSH, T7, BNP #### [facility] [address] [place] [address] Dr. Glenys Holly INFLUENZA A AG Negative Normal NEGATIVE SEE COMMENT [facility] Comment on above: Performed By: #### M G, CMP, TSH, T7, BNP #### [facility] [address] [place] [address] Dr. Glenys Holly INFLUENZA B AG Negative Normal NEGATIVE SEE COMMENT [facility] Comment on above: Performed By: #### M G, CMP, TSH, T7, BNP #### [facility] [address] [place] [address] Dr. Glenys Holly INTERNAL CONTROLS Within Normal Limits Normal Wi thin Normal Limits [facility] Comment on above: Performed By: #### M G, CMP, TSH, T7, BNP #### [facility] [address] [place] [address] Dr. Glenys Holly LACTATE/LACTIC ACIDon 2021 Lactate [Moles/Vol] 5.2 mmol/L Critically high 0.4-1.9 [facility] Comment on above: Performed By: #### M G, CMP, TSH, T7, BNP #### [facility] [address] [place] [address] Dr. Glenys Holly Lactate [Moles/Vol] 4.8 mmol/L Critically high 0.4-1.9 [facility] Comment on above: Performed By: #### M G, CMP, TSH, T7, BNP #### [facility] [address] [place] [address] Dr. Glenys Holly LIPASEon 05-05-2022 Lipase [Catalytic activity/Vol] 64.0 U/L Critically low 73.0-393.0 [facility] Comment on above: Performed By: #### M G, CMP, TSH, T7, BNP #### [facility] [address] [place] [address] Dr. Glenys Holly PROF CHEM 8 (BAS METB)on Anion gap [Moles/Vol] 12.6 mmol/L Normal [facility] Comment on above: Performed By: #### M G, CMP, TSH, T7, BNP #### [facility] [address] [place] [address] Dr. Glenys Holly Calcium [Mass/Vol] 9.6 mg/dL Normal 8.5-10.1 [facility] Comment on above: Performed By: #### M G, CMP, TSH, T7, BNP #### [facility] [address] [place] [address] [address] Glenys Holly Chloride [Moles/Vol] 102 mmol/L Normal 98-107 [facility] Comment on above: Performed By: #### M G, CMP, TSH, T7, BNP #### [facility] [address] [place] [address] Dr. Glenys Holly CO2 [Moles/Vol] 26.3 mmol/L Normal 21.0-32.0 [facility] Comment on above: Performed By: #### M G, CMP, TSH, T7, BNP #### [facility] [address] [place] [address] Dr. Glenys Holly Creatinine [Mass/Vol] 1.00 mg/dL Normal 0.55-1.02 [facility] Comment on above: Performed By: #### M G, CMP, TSH, T7, BNP #### [facility] [address] [place] [address] Dr. Glenys Holly EGFR-AF SWEDISH >60 Normal >=60 [facility] Comment on above: Performed By: #### M G, CMP, TSH, T7, BNP #### [facility] [address] [place] [address] [address] Glenys Holly EGFR-NON AF SWEDISH 54 mL/min/1.73m2 Critically low >=60 [facility] Comment on above: Performed By: #### M G, CMP, TSH, T7, BNP #### [facility] [address] [place] [address] [address] Glenys Holly Glucose [Mass/Vol] 128 mg/dL Critically high 74-[address] [facility] Comment on above: Performed By: #### M G, CMP, TSH, T7, BNP #### [facility] [address] [place] [address] Dr. Glenys Holly Potassium [Moles/Vol] 2.9 mmol/L Critically low 3.5-5.1 [facility] Comment on above: Performed By: #### M G, CMP, TSH, T7, BNP #### [facility] [address] [place] [address] Dr. Glenys Holly Sodium [Moles/Vol] 138 mmol/L Normal 136-145 [facility] Comment on above: Performed By: #### M G, CMP, TSH, T7, BNP #### [facility] [address] [place] [address] Dr. lGenys Holly Urea nitrogen [Mass/Vol] 20.0 mg/dL Critically high 7.0-18.0 [facility] Comment on above: Performed By: #### M G, CMP, TSH, T7, BNP #### [facility] [address] [place] [address] Dr. Glenys Holly Urea nitrogen/Creatinine [Mass ratio] 20.0 mg/mg Normal [facility] Comment on above: Performed By: #### M G, CMP, TSH, T7, BNP #### [facility] [address] [place] [address] Dr. Glenys Holly T4on 05-05-2022 T4 [Mass/Vol] 7.40 ug/dL Normal 4.80-13.90 [facility] Comment on above: Performed By: #### M G, CMP, TSH, T7, BNP #### [facility] [address] [place] [address] Dr. Glenys Holly TSHon 05-05-2022 TSH 0.198 uIU/mL Critically low 0.358-3.74 0 [facility] Comment on above: Performed By: #### M G, CMP, TSH, T7, BNP #### [facility] [address] [place] [address] Dr. Glenys Holly UA RANDOM W/MICROSCOPICon BACTERIA NONE SEEN Normal NONE SEEN [facility] Comment on above: Performed By: #### M G, CMP, TSH, T7, BNP #### [facility] [address] [place] [address] Dr. Glenys Holly Bilirubin Ql (U) Negative Normal NEGATIVE [facility] Comment on above: Performed By: #### M G, CMP, TSH, T7, BNP #### [facility] [address] [place] [address] Dr. Glenys Holly CAST NONE SEEN Normal NONE SEEN [facility] Comment on above: Performed By: #### M G, CMP, TSH, T7, BNP #### [facility] [address] [place] [address] Dr. Glenys Holly Clarity (U) SL CLOUDY Abnormal CLEAR [facility] Comment on above: Performed By: #### M G, CMP, TSH, T7, BNP #### [facility] [address] [place] [address] Dr. Glenys Holly Color (U) LT. YELLOW Normal YELLOW [facility] Comment on above: Performed By: #### M G, CMP, TSH, T7, BNP #### [facility] [address] [place] [address] Dr. Glenys Holly Crystals LM Nom (Urine sed) NONE SEEN Normal NONE SEEN [facility] Comment on above: Performed By: #### M G, CMP, TSH, T7, BNP #### [facility] [address] [place] [address] Dr. Glenys Holly Epithelial cells LM Ql (Urine sed) FEW Abnormal NONE SEEN /RARE [facility] Comment on above: Performed By: #### M G, CMP, TSH, T7, BNP #### [facility] [address] [place] [address] [address] Glenys Holly Glucose Ql (U) Negative Normal NEGATIVE [facility] Comment on above: Performed By: #### M G, CMP, TSH, T7, BNP #### [facility] [address] [place] [address] [address] Glenys Holly Hemoglobin Ql (U) MODERATE Abnormal NEGATIVE [facility] Comment on above: Performed By: #### M G, CMP, TSH, T7, BNP #### [facility] [address] [place] [address] Dr. lGenys Holly Ketones Ql (U) Negative Normal NEGATIVE [facility] Comment on above: Performed By: #### M G, CMP, TSH, T7, BNP #### [facility] [address] [place] [address] Dr. Glenys Holly LEUKOCYTES Negative Normal NEGATIVE [facility] Comment on above: Performed By: #### M G, CMP, TSH, T7, BNP #### [facility] [address] [place] [address] Dr. Glenys Holly MUCOUS NONE SEEN Normal NONE SEEN [facility] Comment on above: Performed By: #### M G, CMP, TSH, T7, BNP #### [facility] [address] [place] [address] [address] Glenys Holly Nitrite Ql (U) Negative Normal NEGATIVE [facility] Comment on above: Performed By: #### M G, CMP, TSH, T7, BNP #### [facility] [address] [place] [address] [address] Glenys Holly pH (U) 6.0 [pH] Normal 5-9 [facility] Comment on above: Performed By: #### M G, CMP, TSH, T7, BNP #### [facility] [address] [place] [address] Dr. Glenys Holly RBC 2-5 Abnormal 0-2 [facility] Comment on above: Performed By: #### M G, CMP, TSH, T7, BNP #### [facility] [address] [place] [address] Dr. Glenys Holly SPEC GRAVITY 1.010 Normal 1.005-<=1. 025 [facility] Comment on above: Performed By: #### M G, CMP, TSH, T7, BNP #### [facility] [address] [place] [address] [address] Glenys Holly UA PROTEIN TRACE Normal NEGATIVE/ TRACE [facility] Comment on above: Performed By: #### M G, CMP, TSH, T7, BNP #### [facility] [address] [place] [address] [address] Glenys Holly Urobilinogen Qn (U) 0.2 {Phoebe'U}/dL Normal 0.2 - 1. 0 [facility] Comment on above: Performed By: #### M G, CMP, TSH, T7, BNP #### [facility] [address] [place] [address] [address] Glenys Holly WBC NONE SEEN Normal NONE SEEN [facility] Comment on above: Performed By: #### M G, CMP, TSH, T7, BNP #### [facility] [address] [place] [id number] Glenys Holly XR CHEST 1 Von [...] SUPA LOZANO Date: 2022-05-05 07:41 Normal [facility] CULTURE URINEon 03-30-2022 CULTURE URINE Culture Observations : GREATER THAN 4 ORGANISMS PRESENT. PLEASE RESUBMIT CLEAN CATCH MID-STREAM URINE IF CLINICALLY INDICATED. Normal [facility] Comment on above: Performed By: #### U RCX ####[facility] [id number] [place], [place] [address]VrDr. Glenys Holly CBC W MANUAL DIFFon 03-29-20 22 ATYPICAL LYMPH # Normal [facility] Comment on above: Performed By: #### M G, CMP, TSH, T7, BNP #### [facility] [address] [place] [address] [address] Glenys Holly ATYPICAL LYMPH % Normal [facility] Comment on above: Performed By: #### M G, CMP, TSH, T7, BNP #### [facility] [address] [place] [address] [address] Glenys Holly BAND # Normal 0.0-0.3 [facility] Comment on above: Performed By: #### M G, CMP, TSH, T7, BNP #### [facility] [address] [place] [address] [address] Glenys Holly BAND % Normal 0-5 [facility] Comment on above: Performed By: #### M G, CMP, TSH, T7, BNP #### [facility] [address] [place] [address] Dr. Glenys Holly BASOM # 0.20 103/ul Critically high 0.00-0.10 [facility] Comment on above: Performed By: #### M G, CMP, TSH, T7, BNP #### [facility] [address] [place] [address] [address] Glenys Holly BASOM % 1.0 % Normal 0.2-2.0 [facility] Comment on above: Performed By: #### M G, CMP, TSH, T7, BNP #### [facility] [address] [place] [address] [address] Glenys Holly BLAST # Normal [facility] Comment on above: Performed By: #### M G, CMP, TSH, T7, BNP #### [facility] [address] [place] [address] [address] Glenys Holly BLAST % Normal [facility] Comment on above: Performed By: #### M G, CMP, TSH, T7, BNP #### [facility] [address] [place] [address] Dr. Glenys Holly CORRECTED WBC Normal 4.0-11.0 [facility] Comment on above: Performed By: #### M G, CMP, TSH, T7, BNP #### [facility] [address] [place] [address] [address] Glenys Holly EOS # 0.00 103/ul Normal 0.00-0.70 [facility] Comment on above: Performed By: #### M G, CMP, TSH, T7, BNP #### [facility] [address] [place] [address] [address] Glenys Holly EOS% 0.0 % Critically low 0.9-7.0 [facility] Comment on above: Performed By: #### M G, CMP, TSH, T7, BNP #### [facility] [address] [place] [address] Dr. Glenys Holly HCT 45.0 % Normal 36.0-48.0 [facility] Comment on above: Performed By: #### M G, CMP, TSH, T7, BNP #### [facility] [address] [place] [address] Dr. Glenys Holly HGB 15.2 g/dl Normal 12.0-16.0 [facility] Comment on above: Performed By: #### M G, CMP, TSH, T7, BNP #### [facility] [address] [place] [address] Dr. Glenys Holly LYMPHM # 2.80 103/ul Normal 1.20-3.80 [facility] Comment on above: Performed By: #### M G, CMP, TSH, T7, BNP #### [facility] [address] [place] [address] [address] Glenys Holly LYMPHM% 14.0 % Critically low 20.5-60.0 [facility] Comment on above: Performed By: #### M G, CMP, TSH, T7, BNP #### [facility] [address] [place] [address] Dr. Glenys Holly MCH 30.6 pg Normal 26.7-34.0 [facility] Comment on above: Performed By: #### M G, CMP, TSH, T7, BNP #### [facility] [address] [place] [address] [address] Glenys Holly MCHC 33.8 g/dl Normal 29.9-35.2 [facility] Comment on above: Performed By: #### M G, CMP, TSH, T7, BNP #### [facility] [address] [place] [address] Dr. Glenys Holly MCV 90.7 fL Normal 81.0-99.0 [facility] Comment on above: Performed By: #### M G, CMP, TSH, T7, BNP #### [facility] [address] [place] [address] Dr. Glenys Holly METAMYELOCYTE # Normal [facility] Comment on above: Performed By: #### M G, CMP, TSH, T7, BNP #### [facility] [address] [place] [address] Dr. Glenys Holly METAMYELOCYTE % Normal [facility] Comment on above: Performed By: #### M G, CMP, TSH, T7, BNP #### [facility] [address] [place] [address] Dr. Glenys Holly MONOM# 2.40 103/ul Critically high 0.30-0.80 [facility] Comment on above: Performed By: #### M G, CMP, TSH, T7, BNP #### [facility] [address] [place] [address] Dr. Glenys Holly MONOM% 12.0 % Normal 1.7-12.0 [facility] Comment on above: Performed By: #### M G, CMP, TSH, T7, BNP #### [facility] [address] [place] [address] Dr. Glenys Holly MPV 11.5 fL Normal 9.5-13.5 [facility] Comment on above: Performed By: #### M G, CMP, TSH, T7, BNP #### [facility] [address] [place] [address] Dr. Glenys Holly MYELOCYTE # Normal [facility] Comment on above: Performed By: #### M G, CMP, TSH, T7, BNP #### [facility] [address] [place] [address] Dr. Glenys Holly MYELOCYTE % Normal [facility] Comment on above: Performed By: #### M G, CMP, TSH, T7, BNP #### [facility] [address] [place] [address] [address] Glenys Holly NR Normal [facility] Comment on above: Performed By: #### M G, CMP, TSH, T7, BNP #### [facility] [address] [place] [address] [address] Glenys Holly PLT 323 103/ul Normal 150-450 [facility] Comment on above: Performed By: #### M G, CMP, TSH, T7, BNP #### [facility] [address] [place] [address] [address] Glenys Holly RBC 4.96 106/ul Normal 4.20-5.40 [facility] Comment on above: Performed By: #### M G, CMP, TSH, T7, BNP #### [facility] [address] [place] [address] Dr. Glenys Holly RDW 14.4 % Normal 11.0-15.0 [facility] Comment on above: Performed By: #### M G, CMP, TSH, T7, BNP #### [facility] [address] [place] [address] Dr. Glenys Holly SEG # 14.60 103/ul Critically high 1.40-6.50 [facility] Comment on above: Performed By: #### M G, CMP, TSH, T7, BNP #### [facility] [address] [place] [address] [address] Glenys Holly SEG % 73.0 % Normal 43.0-75.0 [facility] Comment on above: Performed By: #### M G, CMP, TSH, T7, BNP #### [facility] [address] [place] [address] [address] Glenys Holly WBC 20.0 103/ul Critically high 4.0-11.0 [facility] Comment on above: Performed By: #### M G, CMP, TSH, T7, BNP #### [facility] [address] [place] [address] [address] ABD/PELV W Roman 10-19-[address] ABD/PELV W CON EXAMINATION: CT [...] RAMIRO SPENCER Date: 2022-03-29 11:27 Normal [facility] ER URINE PROFILEon 2 Bilirubin Ql (U) Negative Normal NEGATIVE [facility] Comment on above: Performed By: #### M G, CMP, TSH, T7, BNP #### [facility] [address] [place] [address] [address] Glenys Holly Clarity (U) CLEAR Normal CLEAR [facility] Comment on above: Performed By: #### M G, CMP, TSH, T7, BNP #### [facility] [address] [place], [place] [address] Dr. Glenys Holly Color (U) LT. YELLOW Normal YELLOW [facility] Comment on above: Performed By: #### M G, CMP, TSH, T7, BNP #### [facility] [address] [place] [address] [address] Glenys WILLIAMSON A micrscopic examina tion will be performed if indicated. Normal [facility] Comment on above: Performed By: #### M G, CMP, TSH, T7, BNP #### [facility] [address] [place] [address] [address] Glenys Holly Glucose Ql (U) Negative Normal NEGATIVE [facility] Comment on above: Performed By: #### M G, CMP, TSH, T7, BNP #### [facility] [address] [place] [address] [address] Glenys Holly Hemoglobin Ql (U) MODERATE Abnormal NEGATIVE [facility] Comment on above: Performed By: #### M G, CMP, TSH, T7, BNP #### [facility] [address] [place] [address] [address] Glenys Holly Ketones Ql (U) 15 mg/dl Abnormal NEGATIVE [facility] Comment on above: Performed By: #### M G, CMP, TSH, T7, BNP #### [facility] [address] [place] [address] [address] Glenys Holly LEUKOCYTES LARGE Abnormal NEGATIVE [facility] Comment on above: Performed By: #### M G, CMP, TSH, T7, BNP #### [facility] [address] [place] [address] [address] Glenys Holly Nitrite Ql (U) Negative Normal NEGATIVE [facility] Comment on above: Performed By: #### M G, CMP, TSH, T7, BNP #### [facility] [address] [place] [address] [address] Glenys Holly pH (U) 6.5 [pH] Normal 5-9 [facility] Comment on above: Performed By: #### M G, CMP, TSH, T7, BNP #### [facility] [address] [place] [address] [address] Glenys Holly SPEC GRAVITY 1.015 Normal 1.005-<=1. 025 [facility] Comment on above: Performed By: #### M G, CMP, TSH, T7, BNP #### [facility] [address] [place] [address] Dr. Glenys Holly UA PROTEIN TRACE Normal NEGATIVE/ TRACE [facility] Comment on above: Performed By: #### M G, CMP, TSH, T7, BNP #### [facility] [address] [place] [address] Dr. Glenys Holly UR MICRO IND INDICATED Normal [facility] Comment on above: Performed By: #### M G, CMP, TSH, T7, BNP #### [facility] [address] [place] [address] Dr. Glenys Holly Urobilinogen Qn (U) 0.2 {Phoebe'U}/dL Normal 0.2 - 1. 0 [facility] Comment on above: Performed By: #### M G, CMP, TSH, T7, BNP #### [facility] [address] [place] [address] Dr. Glenys Holly LIPASEon 03-29-2022 Lipase [Catalytic activity/Vol] 62.0 U/L Critically low 73.0-393.0 [facility] Comment on above: Performed By: #### M G, CMP, TSH, T7, BNP #### [facility] [address] [place] [address] Dr. Glenys Holly PROF 14(COMP METB)on 022 Albumin [Mass/Vol] 3.7 g/dL Normal 3.4-5.0 [facility] Comment on above: Performed By: #### M G, CMP, TSH, T7, BNP #### [facility] [address] [place] [address] Dr. Glenys Holly Albumin/Globulin [Mass ratio] 1.2 {ratio} Normal [facility] Comment on above: Performed By: #### M G, CMP, TSH, T7, BNP #### [facility] [address] [place] [address] Dr. Glenys Holly ALP [Catalytic activity/Vol] 106 U/L Normal 46-116 [facility] Comment on above: Performed By: #### M G, CMP, TSH, T7, BNP #### [facility] [address] [place] [address] [address] Glenys Holly ALT [Catalytic activity/Vol] 17 U/L Normal 14-59 [facility] Comment on above: Performed By: #### M G, CMP, TSH, T7, BNP #### [facility] [address] [place] [address] [address] Glenys Holly Anion gap [Moles/Vol] 11.8 mmol/L Normal [facility] Comment on above: Performed By: #### M G, CMP, TSH, T7, BNP #### [facility] [address] [place] [address] Dr. Glenys Holly AST [Catalytic activity/Vol] 19 U/L Normal 15-37 [facility] Comment on above: Performed By: #### M G, CMP, TSH, T7, BNP #### [facility] [address] [place] [address] Dr. Glenys Holly Bilirubin [Mass/Vol] 0.8 mg/dL Normal 0.2-1.0 [facility] [facility] Comment on above: Performed By: #### M G, CMP, TSH, T7, BNP #### [facility] [address] [place] [address] Dr. Glenys Holly Calcium [Mass/Vol] 9.8 mg/dL Normal 8.5-10.1 [facility] Comment on above: Performed By: #### M G, CMP, TSH, T7, BNP #### [facility] [address] [place] [address] Dr. Glenys Holly Chloride [Moles/Vol] 101 mmol/L Normal 98-107 [facility] Comment on above: Performed By: #### M G, CMP, TSH, T7, BNP #### [facility] [address] [place] [address] Dr. Glenys Holly CO2 [Moles/Vol] 26.2 mmol/L Normal 21.0-32.0 [facility] Comment on above: Performed By: #### M G, CMP, TSH, T7, BNP #### [facility] [address] [place] [address] Dr. Glenys Holly Creatinine [Mass/Vol] 0.76 mg/dL Normal 0.55-1.02 [facility] Comment on above: Performed By: #### M G, CMP, TSH, T7, BNP #### [facility] [address] [address] [address] Glenys Holly EGFR-AF SWEDISH >60 Normal >=60 [facility] Comment on above: Performed By: #### M G, CMP, TSH, T7, BNP #### [facility] [address] [address] [address] Glenys Holly EGFR-NON AF SWEDISH >60 Normal >=60 [facility] Comment on above: Performed By: #### M G, CMP, TSH, T7, BNP #### [facility] [address] [place] [address] Dr. Glenys Holly Globulin (S) [Mass/Vol] 3.2 g/dL Normal [facility] Comment on above: Performed By: #### M G, CMP, TSH, T7, BNP #### [facility] [address] [place] [address] Dr. Glenys Holly Glucose [Mass/Vol] 103 mg/dL Normal 74-106 [facility] Comment on above: Performed By: #### M G, CMP, TSH, T7, BNP #### [facility] [address] [place] [address] Dr. Glenys Holly Potassium [Moles/Vol] 3.0 mmol/L Critically low 3.5-5.1 [facility] Comment on above: Performed By: #### M G, CMP, TSH, T7, BNP #### [facility] [address] [address] [address] Glenys Holly Protein [Mass/Vol] 6.9 g/dL Normal 6.4-8.2 [facility] Comment on above: Performed By: #### M G, CMP, TSH, T7, BNP #### [facility] [address] [address] [address] Glenys Holly Sodium [Moles/Vol] 136 mmol/L Normal 136-145 [facility] Comment on above: Performed By: #### M G, CMP, TSH, T7, BNP #### [facility] [address] [address] [address] Glenys Holly Urea nitrogen [Mass/Vol] 16.0 mg/dL Normal 7.0-18.0 [facility] Comment on above: Performed By: #### M G, CMP, TSH, T7, BNP #### [facility] [address] [address] [address] Glenys Holly Urea nitrogen/Creatinine [Mass ratio] 21.1 mg/mg Normal [facility] Comment on above: Performed By: #### M G, CMP, TSH, T7, BNP #### [facility] [address] [address] [address] Glenys Holly TROPONIN, HIGH SENSITIVITYon 03-29-2022 HSTROP 30.7 pg/mL Normal 4.0-51.3 [facility] Comment on above: Result Comment: CUT- OFF POINTS HAVE BEEN ESTABLISHED BASED ON THE FOURTH UNIVERSAL DEFINITIONS OF MYOCARDIAL INFARCTION. THE UPPER REFERENCE LIMIT (URL) OF TROPONIN, DEFINED THE 99TH PERCENTILE OF cTnI DISTRIBUTION IN A REFERENCE POPULATION, HAS BEEN CONFIRMED THE DECISION THRESHOLD FOR IA DIAGNOSIS. Performed By: #### M G, CMP, TSH, T7, BNP #### [facility] [address] [place] [address] Dr. Glenys Holly URINE MICROSCOPIC ONLYon BACTERIA MODERATE Abnormal NONE SEEN [facility] Comment on above: Performed By: #### M G, CMP, TSH, T7, BNP #### [facility] [address] [address] [address] Glenys Holly Bacteria identified Cx Nom (U) INDICATED Normal [facility] Comment on above: Performed By: #### M G, CMP, TSH, T7, BNP #### [facility] [address] [address] [address] Glenys Holly CA OX CRYSTALS MODERATE Normal [facility] Comment on above: Performed By: #### M G, CMP, TSH, T7, BNP #### [facility] [address] [address] [address] Glenys Holly CAST NONE SEEN Normal NONE SEEN [facility] Comment on above: Performed By: #### M G, CMP, TSH, T7, BNP #### [facility] [address] [address] [address] Glenys Holly Crystals LM Nom (Urine sed) SEEN Abnormal NONE SEEN [facility] Comment on above: Performed By: #### M G, CMP, TSH, T7, BNP #### [facility] [address] [address] [address] Glenys Holly Epithelial cells LM Ql (Urine sed) FEW Abnormal NONE SEEN /RARE [facility] Comment on above: Performed By: #### M G, CMP, TSH, T7, BNP #### [facility] [address] [address] [address] Glenys Holly MUCOUS NONE SEEN Normal NONE SEEN [facility] Comment on above: Performed By: #### M G, CMP, TSH, T7, BNP #### [facility] [address] [address] [address] Glenys Holly RBC 5-10 Abnormal 0-2 [facility] Comment on above: Performed By: #### M G, CMP, TSH, T7, BNP #### [facility] [address] [address] [address] Glenys Holly WBC 20-50 Abnormal NONE SEEN [facility] Comment on above: Performed By: #### M G, CMP, TSH, T7, BNP #### [facility] [address] [address] [address] Glenys Holly XR ABD FLAT UP_PA [...] RAMIRO SPENCER Date: 2022-03-29 09:27 Normal [facility] CT HEAD WO CONon 12-27-2021 CT [...] RAMIRO SPENCER Date: 2021-12-27 12:48 Normal [facility] Discharge Summaryon 08-18-19 18 Discharge Summary MR#: [id number] [facility] Pt. Name: Judith Khan Admitted: [...] intraperitoneal bleeding. [facility] and [facility] the outside facility.Upon arrival to the [facility], no other injuries were noted. The patientwas [...] 4-6 hours as needed for pain and Mhviox684 mg b.i.d. for opioid related constipation.Electronically Signed by:Spua May M.D. 08/29/2017 12:01 P Supa May M.D. I personally saw this patient on the day of the encounter, performed thekey portion(s) of the service and participated in the management andconfirm the resident's documentation. Please note there may be anadditional personal documentation from me. Date Dict: 08/16/2017/10:11 A/Josh Palmer, MDDate Trans: 08/17/2017 06:00 A/[id number] Normal [facility] BASIC METABOLIC PANELon Calcium 8.8 mg/dL Normal 8.6-10.3 [facility] Comment on above: Order Comment: No: D o not add to previous draw Performed By: #### 0 0121, 87841 ####[facility] [place] [address], [facility] Chloride 97 mmol/L Low 98-107 [facility] Comment on above: Order Comment: No: D o not add to previous draw Performed By: #### 0 0121, 68128 ####[address] [place] [address], [facility] CO2 33 mmol/L High 21-31 [facility] Comment on above: Order Comment: No: D o not add to previous draw Performed By: #### 0 0121, 67986 ####[facility] [place] [address], [facility] Creatinine 0.75 mg/dL Normal 0.60-1.20 [facility] Comment on above: Order Comment: No: D o not add to previous draw Performed By: #### 0 0121, 92847 ####[address] [place] [address], [facility] eGFR (black) mL/min/{1.73_m2} Normal >60 [facility] Comment on above: Order Comment: No: D o not add to previous draw Result Comment: Calc ulation may not be valid for patients over 70 years Performed By: #### 0 0121, 31687 ####[facility] eGFR (non-black) mL/min/{1.73_m2} Normal >60 Th e [facility] Comment on above: Order Comment: No: D o not add to previous draw Result Comment: Calc ulation may not be valid for patients over 70 years Performed By: #### 0 0121, 81304 ####[facility] [place] [address], [facility] Glucose mass conc 91 mg/dL Normal 70-100 [facility] Comment on above: Order Comment: No: D o not add to previous draw Performed By: #### 0 0121, 97867 ####[facility] [place] [address], [facility] Potassium molar conc 2.8 mmol/L Low 3.5-5.1 [facility] Comment on above: Order Comment: No: D o not add to previous draw Performed By: #### 0 0121, 25578 ####[facility] [place] [address], [facility] Sodium 137 mmol/L Normal 136-145 [facility] Comment on above: Order Comment: No: D o not add to previous draw Performed By: #### 0 0121, 65318 ####[facility] [place] [address], [facility] Urea nitrogen 13 mg/dL Normal 7-25 [facility] Comment on above: Order Comment: No: D o not add to previous draw Performed By: #### 0 0121, 24701 ####[facility] [place] [address], [facility] CBC COMPLETE BLOOD COUNTon 0 08-15-2017 Erythrocyte distribution width Auto Ratio (RBC) 14.6 % Normal 11.5-15.0 [facility] Comment on above: Order Comment: No: D o not add to previous draw Performed By: #### 5 610, 99363 ####[facility] [place] [address], [facility] Erythrocytes (RBC) 4.05 10*6/uL Normal 3.80-5.00 [facility] Comment on above: Order Comment: No: D o not add to previous draw Performed By: #### 5 6100, 81385 ####[facility] [place] [address], [facility] Erythrocytes (RBC) 0 % Normal 0-0 [facility] Comment on above: Order Comment: No: D o not add to previous draw Performed By: #### 5 6100, 03075 ####[facility] Hematocrit (HCT) 36.8 % Normal 36.0-45.0 [facility] Comment on above: Order Comment: No: D o not add to previous draw Performed By: #### 5 6100, 12211 ####[facility] [place] [address], [facility] Hemoglobin mass conc (Bld) 12.3 g/dL Normal 12.0-15.0 [facility] Comment on above: Order Comment: No: D o not add to previous draw Performed By: #### 5 6100, 73564 ####[facility] [place] [address], [facility] MCH 30.4 pg Normal 27.0-33.0 [facility] Comment on above: Order Comment: No: D o not add to previous draw Performed By: #### 5 610, 65666 ####[facility] [place] [address], [facility] MCHC mass conc (RBC) 33.4 g/dL Normal 32.0-35.0 [facility] Comment on above: Order Comment: No: D o not add to previous draw Performed By: #### 5 6101, 48353 ####[facility] MCV 90.9 fL Normal 82.0-98.0 [facility] Comment on above: Order Comment: No: D o not add to previous draw Performed By: #### 5 6101, 84923 ####[facility] PLAT CNT 196 10*3/uL Normal 150-400 [facility] Comment on above: Order Comment: No: D o not add to previous draw Performed By: #### 5 6101, 36591 ####[facility] WBC (Leukocytes) 11.0 10*3/uL High 4.0-10.6 [facility] Comment on above: Order Comment: No: D o not add to previous draw Performed By: #### 5 6101, 85689 ####[address] PORTABLE CHEST 1 VIEWon 03-0 PORTABLE CHEST 1 VIEW [facility] [address] [place] [id number] Patient Name: JUDITH KHAN : 1945Sex: FAge: Race: WhiteMRN: [id number]. Location: [id number] Status: IVisit #: [id number] Date: 08/15/2017 7:05:00 AMCompleted Date: 08/15/2017 07:54 AMRequesting Provider: JOSH PALMER Attending Provider: ALEXANDER OLSON Report Copy To: Signs & Symptoms: O2 DesaturationHistory: Patient history not availableComments: R/O EffusionExam: PORTABLE CHEST 1 VIEWAccession #: [id number] POR TABLE CHEST 1 VIEW 08/15/2017 7:54 AM EST [...] findings. Electronically signed by:Nina Beaver. Transcribed by: [email or web address], User Resident: JAZMIN MARElectronically Signed by: NINA BEAVER @ 08/15/2017 10:25 AMI personally read this/these film(s) with this resident Normal [facility] Comment on above: Order Comment: R/O E ffusion BASIC METABOLIC PANELon 03-0 Calcium 8.6 mg/dL Normal 8.6-10.3 [facility] Comment on above: Order Comment: No: D o not add to previous draw Performed By: #### 0 0121, 07692 ####[facility] Chloride 103 mmol/L Normal 98-107 [facility] Comment on above: Order Comment: No: D o not add to previous draw Performed By: #### 0 0121, 70786 ####[facility] [place] [address], [facility] CO2 30 mmol/L Normal 21-31 [facility] Comment on above: Order Comment: No: D o not add to previous draw Performed By: #### 0 0121, 39517 ####[facility] [place] [address], [facility] Creatinine 0.60 mg/dL Normal 0.60-1.20 [facility] Comment on above: Order Comment: No: D o not add to previous draw Performed By: #### 0 0121, 65186 ####[facility] [place] [address], [facility] eGFR (black) mL/min/{1.73_m2} Normal >60 [facility] Comment on above: Order Comment: No: D o not add to previous draw Result Comment: Calc ulation may not be valid for patients over 70 years Performed By: #### 0 0121, 90723 ####[facility] [place] [address], [facility] eGFR (non-black) mL/min/{1.73_m2} Normal >60 [facility] Comment on above: Order Comment: No: D o not add to previous draw Result Comment: Calc ulation may not be valid for patients over 70 years Performed By: #### 0 0121, 53144 ####[facility] [place] [address], [facility] Glucose mass conc 81 mg/dL Normal 70-100 [facility] Comment on above: Order Comment: No: D o not add to previous draw Performed By: #### 0 0121, 73027 ####[facility] Potassium molar conc 3.0 mmol/L Low 3.5-5.1 [facility] Comment on above: Order Comment: No: D o not add to previous draw Performed By: #### 0 0121, 07467 ####[facility] Sodium 138 mmol/L Normal 136-145 [facility] Comment on above: Order Comment: No: D o not add to previous draw Performed By: #### 0 0121, 76385 ####[facility] Urea nitrogen 12 mg/dL Normal 7-25 [facility] Comment on above: Order Comment: No: D o not add to previous draw Performed By: #### 0 0121, 73775 ####[facility] CBC COMPLETE BLOOD COUNTon 0 08-14-2017 Erythrocyte distribution width Auto Ratio (RBC) 14.9 % Normal 11.5-15.0 [facility] Comment on above: Order Comment: No: D o not add to previous draw Performed By: #### 0 0121, 37634 ####[facility] Erythrocytes (RBC) 3.80 10*6/uL Normal 3.80-5.00 [facility] Comment on above: Order Comment: No: D o not add to previous draw Performed By: #### 0 0121, 02455 ####[facility] Erythrocytes (RBC) 0 % Normal 0-0 [facility] Comment on above: Order Comment: No: D o not add to previous draw Performed By: #### 0 0121, 77203 ####[facility] Hematocrit (HCT) 34.3 % Low 36.0-45.0 [facility] Comment on above: Order Comment: No: D o not add to previous draw Performed By: #### 0 0121, 06780 ####[facility] Hemoglobin mass conc (Bld) 11.7 g/dL Low 12.0-15.0 [facility] Comment on above: Order Comment: No: D o not add to previous draw Performed By: #### 0 0121, 90574 ####[facility] MCH 30.8 pg Normal 27.0-33.0 [facility] Comment on above: Order Comment: No: D o not add to previous draw Performed By: #### 0 0121, 21832 ####[facility] MCHC mass conc (RBC) 34.1 g/dL Normal 32.0-35.0 [facility] Comment on above: Order Comment: No: D o not add to previous draw Performed By: #### 0 0121, 68192 ####[facility] MCV 90.3 fL Normal 82.0-98.0 [facility] Comment on above: Order Comment: No: D o not add to previous draw Performed By: #### 0 0121, 67143 ####[facility] PLAT CNT 134 10*3/uL Low 150-400 [facility] Comment on above: Order Comment: No: D o not add to previous draw Performed By: #### 0 0121, 83629 ####[facility] WBC (Leukocytes) 11.5 10*3/uL High 4.0-10.6 [facility] Comment on above: Order Comment: No: D o not add to previous draw Performed By: #### 0 0121, 90505 ####[facility] [place] [address], [facility] MAGNESIUM BLOODon 08-14-2017 Magnesium 1.9 mg/dL Normal 1.9-2.7 [facility] Comment on above: Order Comment: No: D o not add to previous draw Performed By: #### 0 0121, 27170 ####[facility] [place] [address], [facility] PHOSPHORUS BLOODon 8 Phosphate 2.5 mg/dL Normal 2.5-5.0 [facility] Comment on above: Order Comment: No: D o not add to previous draw Performed By: #### 0 0121, 00921 ####[facility] [place] [id number] [place] [address] PORTABLE CHEST 1 VIEWon PORTABLE CHEST 1 VIEW [facility] [address] [place] [id number] Patient Name: JUDITH KHAN : 1945Sex: FAge: Race: WhiteMRN: [id number]. Location: [id number] Status: IVisit #: [id number] Date: 08/14/2017 8:00:00 AMCompleted Date: 08/14/2017 08:34 AMRequesting Provider: JOSH PALMER Attending Provider: ALEXANDER OLSON Report Copy To: Signs & Symptoms: O2 DesaturationHistory: Patient history not availableComments: R/O AtelectasisExam: PORTABLE CHEST 1 VIEWAccession #: [id number] POR TABLE CHEST 1 VIEW 08/14/2017 8:34 AM EST [...] findings. Electronically signed by:Kristian Nascimento. Transcribed by: [email or web address], User Resident: JAZMIN MARElectronically Signed by: KRISTIAN NASCIMENTO @ 08/14/2017 09:18 PMI personally read this/these film(s) with this resident Normal [facility] Comment on above: Order Comment: R/O A telectasis BASIC METABOLIC PANELon 0 Calcium 8.4 mg/dL Low 8.6-10.3 [facility] Comment on above: Order Comment: No: D o not add to previous draw Performed By: #### 0 0121, 40782 ####[facility] Chloride 109 mmol/L High 98-107 [facility] Comment on above: Order Comment: No: D o not add to previous draw Performed By: #### 0 0121, 02951 ####[facility] [place] [address], [facility] CO2 30 mmol/L Normal 21-31 [facility] Comment on above: Order Comment: No: D o not add to previous draw Performed By: #### 0 0121, 24677 ####[facility] [place] [address], [facility] Creatinine 0.62 mg/dL Normal 0.60-1.20 [facility] Comment on above: Order Comment: No: D o not add to previous draw Performed By: #### 0 0121, 04153 ####[facility] eGFR (black) mL/min/{1.73_m2} Normal >60 [facility] Comment on above: Order Comment: No: D o not add to previous draw Result Comment: Calc ulation may not be valid for patients over 70 years Performed By: #### 0 0121, 22542 ####[facility] eGFR (non-black) mL/min/{1.73_m2} Normal >60 Th e [facility] Comment on above: Order Comment: No: D o not add to previous draw Result Comment: Calc ulation may not be valid for patients over 70 years Performed By: #### 0 0121, 12186 ####[facility] Glucose mass conc 99 mg/dL Normal 70-100 [facility] Comment on above: Order Comment: No: D o not add to previous draw Performed By: #### 0 0121, 48314 ####[address] [place] [address], [facility] Potassium molar conc 3.2 mmol/L Low 3.5-5.1 [facility] Comment on above: Order Comment: No: D o not add to previous draw Performed By: #### 0 0121, 76999 ####[facility] Sodium 143 mmol/L Normal 136-145 [facility] Comment on above: Order Comment: No: D o not add to previous draw Performed By: #### 0 0121, 81820 ####[facility] [place] [address], [facility] Urea nitrogen 14 mg/dL Normal 7-25 [facility] Comment on above: Order Comment: No: D o not add to previous draw Performed By: #### 0 0121, 54658 ####[facility] [facility] CBC COMPLETE BLOOD COUNTon 0 08-13-2017 Erythrocyte distribution width Auto Ratio (RBC) 15.9 % High 11.5-15.0 [facility] Comment on above: Order Comment: No: D o not add to previous draw Performed By: #### 0 0121, 31618 ####[facility] Erythrocytes (RBC) 0 % Normal 0-0 [facility] Comment on above: Order Comment: No: D o not add to previous draw Performed By: #### 0 0121, 61410 ####[facility] [facility] Erythrocytes (RBC) 3.76 10*6/uL Low 3.80-5.00 [facility] Comment on above: Order Comment: No: D o not add to previous draw Performed By: #### 0 0121, 26516 ####[facility] [place] [address], [facility] Hematocrit (HCT) 34.3 % Low 36.0-45.0 [facility] Comment on above: Order Comment: No: D o not add to previous draw Performed By: #### 0 0121, 09692 ####[facility] Hemoglobin mass conc (Bld) 11.4 g/dL Low 12.0-15.0 [facility] Comment on above: Order Comment: No: D o not add to previous draw Performed By: #### 0 0121, 83963 ####[facility] [facility] MCH 30.3 pg Normal 27.0-33.0 [facility] Comment on above: Order Comment: No: D o not add to previous draw Performed By: #### 0 0121, 07064 ####[facility] [facility].[address] MCHC mass conc (RBC) 33.2 g/dL Normal 32.0-35.0 [facility] Comment on above: Order Comment: No: D o not add to previous draw Performed By: #### 0 0121, 36594 ####[facility] [facility].[address] MCV 91.2 fL Normal 82.0-98.0 [facility] Comment on above: Order Comment: No: D o not add to previous draw Performed By: #### 0 0121, 14991 ####[address] [facility].[address] PLAT CNT 95 10*3/uL Low 150-400 [facility] Comment on above: Order Comment: No: D o not add to previous draw Performed By: #### 0 0121, 40374 ####[facility] [facility].[address] WBC (Leukocytes) 9.1 10*3/uL Normal 4.0-10.6 [facility] Comment on above: Order Comment: No: D o not add to previous draw Performed By: #### 0 0121, 84607 ####[facility] MAGNESIUM BLOODon 08-13-2017 Magnesium 1.8 mg/dL Low 1.9-2.7 [facility] Comment on above: Order Comment: No: D o not add to previous draw Performed By: #### 0 0121, 03072 ####[facility] [place] [address], [facility] PHOSPHORUS BLOODon 8 Phosphate 1.9 mg/dL Low 2.5-5.0 [facility] Comment on above: Order Comment: No: D o not add to previous draw Performed By: #### 0 0121, 27800 ####[facility] [place] [address], [facility] BASIC METABOLIC PANELon Calcium 8.4 mg/dL Low 8.6-10.3 [facility] Comment on above: Order Comment: No: D o not add to previous draw Performed By: #### 0 0121, 82985 ####[facility] [place] [address], [facility] Chloride 113 mmol/L High 98-107 [facility] Comment on above: Order Comment: No: D o not add to previous draw Performed By: #### 0 0121, 26861 ####[facility] [place] [address], [facility] CO2 25 mmol/L Normal 21-31 [facility] Comment on above: Order Comment: No: D o not add to previous draw Performed By: #### 0 0121, 18857 ####[facility] [place] [address], [facility] Creatinine 0.75 mg/dL Normal 0.60-1.20 [facility] Comment on above: Order Comment: No: D o not add to previous draw Performed By: #### 0 0121, 56753 ####[facility] [place] [address], [facility] eGFR (black) mL/min/{1.73_m2} Normal >60 [facility] Comment on above: Order Comment: No: D o not add to previous draw Result Comment: Calc ulation may not be valid for patients over 70 years Performed By: #### 0 0121, 95010 ####[facility] [place] [address], [facility] eGFR (non-black) mL/min/{1.73_m2} Normal >60 Th [facility] Comment on above: Order Comment: No: D o not add to previous draw Result Comment: Calc ulation may not be valid for patients over 70 years Performed By: #### 0 0121, 17882 ####[facility] [place] [address], [facility] Glucose mass conc 116 mg/dL High 70-100 [facility] Comment on above: Order Comment: No: D o not add to previous draw Performed By: #### 0 0121, 73695 ####[facility] [place] [address], [facility] Potassium molar conc 3.6 mmol/L Normal 3.5-5.1 [facility] Comment on above: Order Comment: No: D o not add to previous draw Performed By: #### 0 0121, 27612 ####[facility] [place] [address], [facility] Sodium 144 mmol/L Normal 136-145 [facility] Comment on above: Order Comment: No: D o not add to previous draw Performed By: #### 0 0121, 91097 ####[facility] [id number], [facility] Urea nitrogen 16 mg/dL Normal 7-25 [facility] Comment on above: Order Comment: No: D o not add to previous draw Performed By: #### 0 0121, 78742 ####[facility] CBC COMPLETE BLOOD COUNTon 0 08-12-2017 Erythrocyte distribution width Auto Ratio (RBC) 16.3 % High 11.5-15.0 [facility] Comment on above: Order Comment: No: D o not add to previous draw Performed By: #### 0 0121, 79820 ####[facility] Erythrocytes (RBC) 4.15 10*6/uL Normal 3.80-5.00 [facility] Comment on above: Order Comment: No: D o not add to previous draw Performed By: #### 0 0121, 78151 ####[facility] Erythrocytes (RBC) 0 % Normal 0-0 [facility] Comment on above: Order Comment: No: D o not add to previous draw Performed By: #### 0 0121, 03743 ####[facility] Hematocrit (HCT) 37.6 % Normal 36.0-45.0 [facility] Comment on above: Order Comment: No: D o not add to previous draw Performed By: #### 0 0121, 76725 ####[facility] Hemoglobin mass conc (Bld) 12.5 g/dL Normal 12.0-15.0 [facility] Comment on above: Order Comment: No: D o not add to previous draw Performed By: #### 0 0121, 77223 ####[facility] MCH 30.1 pg Normal 27.0-33.0 [facility] Comment on above: Order Comment: No: D o not add to previous draw Performed By: #### 0 0121, 82418 ####[facility] MCHC mass conc (RBC) 33.2 g/dL Normal 32.0-35.0 [facility] Comment on above: Order Comment: No: D o not add to previous draw Performed By: #### 0 0121, 54346 ####[facility] MCV 90.6 fL Normal 82.0-98.0 [facility] Comment on above: Order Comment: No: D o not add to previous draw Performed By: #### 0 0121, 82997 ####[facility] PLAT CNT 89 10*3/uL Low 150-400 [facility] Comment on above: Order Comment: No: D o not add to previous draw Performed By: #### 0 0121, 35330 ####[facility] WBC (Leukocytes) 13.5 10*3/uL High 4.0-10.6 [facility] Comment on above: Order Comment: No: D o not add to previous draw Performed By: #### 0 0121, 39534 ####[facility] HEMATOCRITon 08-12-2017 Hematocrit (HCT) 37.6 % Normal 36.0-45.0 [facility] Comment on above: Order Comment: No: D o not add to previous draw Performed By: #### 0 0121, 70680 ####[facility] HEMOGLOBINon 08-12-2017 Hemoglobin mass conc (Bld) 12.6 g/dL Normal 12.0-15.0 [facility] Comment on above: Order Comment: No: D o not add to previous drawLAB DRAW NOW - PER CECY MCELROY Performed By: #### 0 0121, 17975 ####[facility] [place] [address], [facility] MAGNESIUM BLOODon 08-12-2017 Magnesium 1.9 mg/dL Normal 1.9-2.7 [facility] Comment on above: Order Comment: No: D o not add to previous draw Performed By: #### 0 0121, 65145 ####[facility] [place] [address], [facility] PHOSPHORUS BLOODon 8 Phosphate 2.1 mg/dL Low 2.5-5.0 [facility] Comment on above: Order Comment: No: D o not add to previous draw Performed By: #### 0 0121, 36241 ####[facility] [place] [address], [facility] PORTABLE CHEST 1 VIEWon PORTABLE CHEST 1 VIEW [facility] [place], [place] [id number] Patient Name: JUDITH KHAN : 1945Sex: FAge: Race: WhiteMRN: [id number]. Location: [id number] Status: IVisit #: [id number] Date: 08/12/2017 7:00:00 AMCompleted Date: 08/12/2017 09:16 AMRequesting Provider: SHANON HERNANDEZ Attending Provider: ALEXANDER OLSON Report Copy To: Signs & Symptoms: O2 DesaturationHistory: Patient history not availableComments: R/O AtelectasisExam: PORTABLE CHEST 1 VIEWAccession #: [id number] POR TABLE CHEST 1 VIEW 08/12/2017 9:16 AM EST [...] findings. Electronically signed by:Kristian Nascimento. Transcribed by: [email or web address], User Resident: ANDRZEJ TORRESElectronically Signed by: KRISTIAN NASCIMENTO @ 08/12/2017 12:27 PMI personally read this/these film(s) with this resident Normal [facility] Comment on above: Order Comment: R/O A telectasis ALCOHOLon 08-11-2017 Ethanol NONE DETECTED Normal [facility] Comment on above: Result Comment: Divi de by 1000 to convert mg/dL to percent. Example: 100mg/dL = 0.1%. Performed By: #### 1 8734, 02114 ####[facility] [place] [address], [facility] APTTon 08-11-2017 aPTT 42.8 s High 25.0-35.0 [facility] Comment on above: Order Comment: No: D [...] FOR THIS PURPOSE. Performed By: #### 1 ####[facility] aPTT 27.2 s Normal 25.0-35.0 [facility] Comment on above: Result Comment: ALL RESULTS [...] THIS PURPOSE. Performed By: #### 5 6101, 50163 ####[facility] ARTERIAL BLOOD GAS WITH ICAo n 08-11-2017 BASE EXCESS -7 mmol/L Low -2-2 [facility] Comment on above: Performed By: #### 1 ####[facility] [place] [address], [facility] Bicarbonate (HCO3) 18 mmol/L Low 23-27 [facility] Comment on above: Performed By: #### 1 ####[facility] [facility] [address], [facility] CO2 34 mmHg Low 35-45 [facility] Comment on above: Performed By: #### 1 ####[facility] [place] [address], [facility] DELIVERY SYSTEMS MV Normal [facility] Comment on above: Performed By: #### 1 ####[facility] [place] [address], [facility] FIO2 40 % Normal 21-100 [facility] Comment on above: Performed By: #### 1 ####[facility] [place] [address], [place] IONIZED CALCIUM 1.13 mmol/L Normal 1.13-1.32 [facility] Comment on above: Performed By: #### 1 ####[facility] [place] [address], [place] MIN VOLUME 7.2 Normal [facility] Comment on above: Performed By: #### 1 ####[facility] [place] [address], [place] MODALITY AC Normal [facility] Comment on above: Performed By: #### 1 ####[facility] [place] [address], [place] O2 saturation 95.5 % Normal 94.0-97.0 [facility] Comment on above: Performed By: #### 1 ####[facility] [place] [address], [place] Oxygen in arterial blood 161 mm[Hg] Critically high 75-100 [facility] Comment on above: Performed By: #### 1 ####[facility] [place] [address], [place] PEEP 5.0 CMH20 Normal [facility] Comment on above: Performed By: #### 1 ####[facility] [place] [address], [place] PF RATIO 403 mmHg High 50-400 [facility] Comment on above: Performed By: #### 1 ####[facility] [place] [address], [place] pH of blood 7.33 [pH] Low 7.35-7.45 [facility] Comment on above: Performed By: #### 1 ####[facility] [facility] Respiratory rate 16 /min Normal [facility] Comment on above: Performed By: #### 53, ####[facility] [place] [address], [facility] TIDAL VOLUME (VT) CC 450 Normal [facility] Comment on above: Performed By: #### 1 53, ####[facility] [place] [address], [facility] BASE EXCESS -9 mmol/L Low -2-2 [facility] Comment on above: Order Comment: RESUL TS CHECKED AND CALLED. ACCURATELY READ BACK BY DAT Performed By: #### 1 53, ####[facility] [facility] Bicarbonate (HCO3) 18 mmol/L Low 23-27 [facility] Comment on above: Order Comment: RESUL TS CHECKED AND CALLED. ACCURATELY READ BACK BY DAT Performed By: #### 1 ####[facility] [place] [address], [facility] CO2 44 mmHg Normal 35-45 [facility] Comment on above: Order Comment: RESUL TS CHECKED AND CALLED. ACCURATELY READ BACK BY DAT Performed By: #### ####[facility] [place] [address], [facility] IONIZED CALCIUM 1.05 mmol/L Low 1.13-1.32 [facility] Comment on above: Order Comment: RESUL TS CHECKED AND CALLED. ACCURATELY READ BACK BY DAT Performed By: #### 1 53, ####[facility] [facility] [address], [facility] O2 saturation 96.9 % Normal 94.0-97.0 [facility] Comment on above: Order Comment: RESUL TS CHECKED AND CALLED. ACCURATELY READ BACK BY DAT Performed By: #### 1 53, ####[facility] [facility] Oxygen in arterial blood 532 mm[Hg] Critically high 75-100 [facility] Comment on above: Order Comment: RESUL TS CHECKED AND CALLED. ACCURATELY READ BACK BY DAT Performed By: #### 1 53, ####[facility] [facility] pH of blood 7.22 [pH] Critically low 7.35-7.45 [facility] Comment on above: Order Comment: RESUL TS CHECKED AND CALLED. ACCURATELY READ BACK BY DAT Performed By: #### 1 53, ####[facility] [facility] BASIC METABOLIC PANELon 03-0 Calcium 8.1 mg/dL Low 8.6-10.3 [facility] Comment on above: Order Comment: No: D o not add to previous draw Performed By: #### 1 53, ####[facility] [facility].[address] Chloride 116 mmol/L High 98-107 [facility] Comment on above: Order Comment: No: D o not add to previous draw Performed By: #### 1 53, ####[facility] [facility].[address] Creatinine 0.85 mg/dL Normal 0.60-1.20 [facility] Comment on above: Order Comment: No: D o not add to previous draw Performed By: #### 1 53, ####[facility] [facility] Glucose mass conc 109 mg/dL High 70-100 [facility] Comment on above: Order Comment: No: D o not add to previous draw Performed By: #### 1 53, ####[facility] [place] [address], [place] Potassium molar conc 4.9 mmol/L Normal 3.5-5.1 [facility] Comment on above: Order Comment: No: D o not add to previous draw Performed By: #### 1 53, ####[facility] [place] [address], [place] Sodium 142 mmol/L Normal 136-145 [facility] Comment on above: Order Comment: No: D o not add to previous draw Performed By: #### 1 53, ####[facility] [place] [address], [place] Urea nitrogen 16 mg/dL Normal 7-25 [facility] Comment on above: Order Comment: No: D o not add to previous draw Performed By: #### 1 53, ####[facility] [place] [address], [place] Calcium 7.9 mg/dL Low 8.6-10.3 [facility] Comment on above: Order Comment: No: D o not add to previous draw Performed By: #### 1 53, ####[facility] [place] [address], [place] Chloride 113 mmol/L High 98-107 [facility] Comment on above: Order Comment: No: D o not add to previous draw Performed By: #### 1 53, ####[facility] [place] [address], [place] CO2 22 mmol/L Normal 21-31 [facility] Comment on above: Order Comment: No: D o not add to previous draw Performed By: #### 1 53, ####[facility] [place] [address], [place] Creatinine 0.68 mg/dL Normal 0.60-1.20 [facility] Comment on above: Order Comment: No: D o not add to previous draw Performed By: #### 1 53, ####[facility] [place] [address], [facility] eGFR (black) mL/min/{1.73_m2} Normal >60 [facility] Comment on above: Order Comment: No: D o not add to previous draw Result Comment: Calc ulation may not be valid for patients over 70 years Performed By: #### 1 53, ####[facility] [place] [address], [facility] eGFR (non-black) mL/min/{1.73_m2} Normal >60 Th [facility] Comment on above: Order Comment: No: D o not add to previous draw Result Comment: Calc ulation may not be valid for patients over 70 years Performed By: #### 1 53, ####[facility] [place] [address], [facility] Glucose mass conc 141 mg/dL High 70-100 [facility] Comment on above: Order Comment: No: D o not add to previous draw Performed By: #### 1 53, ####[facility] [place] [address], [facility] Potassium molar conc 3.3 mmol/L Low 3.5-5.1 [facility] Comment on above: Order Comment: No: D o not add to previous draw Performed By: #### 1 53, ####[facility] [place] [address], [facility] Sodium 139 mmol/L Normal 136-145 [facility] Comment on above: Order Comment: No: D o not add to previous draw Performed By: #### 1 53, ####[facility] Urea nitrogen 12 mg/dL Normal 7-25 [facility] Comment on above: Order Comment: No: D o not add to previous draw Performed By: #### 1 ####[facility] CBC W/DIFFon 08-11-2017 ABS BASOPHILS 0.0 10*3/uL Normal 0.0-0.2 [facility] Comment on above: Performed By: #### 1 53, ####[facility] ABS IMM GRANS 0.0 10*3/uL Normal 0.0-0.2 [facility] Comment on above: Performed By: #### 1 53, ####[place] [id number] [address] Basophils Auto #/vol (Bld) 0.1 % Normal 0.0-1.0 [facility] Comment on above: Performed By: #### 1 ####[place] [address] [address] Eosinophils 0.0 10*3/uL Normal 0.0-0.5 [facility] Comment on above: Performed By: #### 1 ####[place] [address] [address] Eosinophils/100 leukocytes 0.1 % Normal 0.0-6.0 [facility] Comment on above: Performed By: #### 1 ####[place] [address] [address] Erythrocyte distribution width Auto Ratio (RBC) 15.1 % High 11.5-15.0 [facility] Comment on above: Performed By: #### 1 ####[facility] Erythrocytes (RBC) 0 % Normal 0-0 [facility] Comment on above: Performed By: #### 1 ####[facility] [facility].[address] Erythrocytes (RBC) 4.46 10*6/uL Normal 3.80-5.00 [facility] Comment on above: Performed By: #### 1 ####[facility] [facility].[address] Hematocrit (HCT) 40.3 % Normal 36.0-45.0 [facility] Comment on above: Performed By: #### 1 ####[place] [address] [address] Hemoglobin mass conc (Bld) 13.5 g/dL Normal 12.0-15.0 [facility] Comment on above: Performed By: #### 1 ####[place] [address] [address] IMMATURE GRANS 0.2 % Normal 0.0-1.0 [facility] Comment on above: Performed By: #### 1 ####[place] [address] [facility].[address] Lymphocytes 0.9 10*3/uL Low 1.2-4.0 [facility] Comment on above: Performed By: #### 1 ####[place] [address] [facility].[address] Lymphocytes/100 leukocytes 5.8 % Low 20.0-45.0 [facility] Comment on above: Performed By: #### 1 ####[address] [place] [address], [place] MCH 30.3 pg Normal 27.0-33.0 [facility] Comment on above: Performed By: #### 1 53, ####[facility] [facility].[address] MCHC mass conc (RBC) 33.5 g/dL Normal 32.0-35.0 [facility] Comment on above: Performed By: #### 1 53, ####[facility] [facility].[address] MCV 90.4 fL Normal 82.0-98.0 [facility] Comment on above: Performed By: #### 1 53, ####[facility] [facility].[address] Monocytes 0.7 10*3/uL Normal 0.1-1.0 [facility] Comment on above: Performed By: #### 1 53, ####[facility] [facility].[address] MONOS 4.6 % Low 5.0-12.0 [facility] Comment on above: Performed By: #### 1 53, ####[facility] [facility].[address] Neutrophils 13.6 10*3/uL High 1.6-7.6 [facility] Comment on above: Performed By: #### 1 53, ####[facility] [facility].[address] Neutrophils/100 leukocytes 89.2 % High 40.0-72.0 [facility] Comment on above: Performed By: #### 1 53, ####[facility] [facility].[address] PLAT CNT 94 10*3/uL Low 150-400 [facility] Comment on above: Result Comment: P = 126 Performed By: #### 1 53, ####[facility] WBC (Leukocytes) 15.2 10*3/uL High 4.0-10.6 [facility] Comment on above: Performed By: #### 1 53, ####[facility] ABS BASOPHILS 0.0 10*3/uL Normal 0.0-0.2 [facility] Comment on above: Performed By: #### 5 102 ####[facility] ABS IMM GRANS 0.1 10*3/uL Normal 0.0-0.2 [facility] Comment on above: Performed By: #### 5 102 ####[facility] Basophils Auto #/vol (Bld) 0.3 % Normal 0.0-1.0 [facility] Comment on above: Performed By: #### 5 102 ####[facility] Eosinophils 0.0 10*3/uL Normal 0.0-0.5 [facility] Comment on above: Performed By: #### 5 102 ####[facility] Eosinophils/100 leukocytes 0.2 % Normal 0.0-6.0 [facility] Comment on above: Performed By: #### 102 ####[facility] Erythrocyte distribution width Auto Ratio (RBC) 14.3 % Normal 11.5-15.0 [facility] Comment on above: Performed By: #### 5 0103 ####[facility] Erythrocytes (RBC) 3.50 10*6/uL Low 3.80-5.00 [facility] Comment on above: Performed By: #### 5 3 ####[facility] Erythrocytes (RBC) 0 % Normal 0-0 [facility] Comment on above: Performed By: #### 5 3 ####[facility] Hematocrit (HCT) 32.5 % Low 36.0-45.0 [facility] Comment on above: Performed By: #### 5 102 ####[facility] Hemoglobin mass conc (Bld) 10.9 g/dL Low 12.0-15.0 [facility] Comment on above: Performed By: #### 5 3 ####[place] [address] [address] IMMATURE GRANS 0.4 % Normal 0.0-1.0 [facility] Comment on above: Performed By: #### 5 3 ####[facility] Lymphocytes 2.3 10*3/uL Normal 1.2-4.0 [facility] Comment on above: Performed By: #### 5 3 ####[facility] Lymphocytes/100 leukocytes 17.6 % Low 20.0-45.0 [facility] Comment on above: Performed By: #### 5 3 ####[facility] MCH 31.1 pg Normal 27.0-33.0 [facility] Comment on above: Performed By: #### 5 0103 ####[facility] MCHC mass conc (RBC) 33.5 g/dL Normal 32.0-35.0 [facility] Comment on above: Performed By: #### 5 0103 ####[facility] MCV 92.9 fL Normal 82.0-98.0 [facility] Comment on above: Performed By: #### 5 0103 ####[facility] Monocytes 0.8 10*3/uL Normal 0.1-1.0 [facility] Comment on above: Performed By: #### 5 0103 ####[facility] MONOS 6.1 % Normal 5.0-12.0 [facility] Comment on above: Performed By: #### 5 010 ####[facility] Neutrophils 9.7 10*3/uL High 1.6-7.6 [facility] Comment on above: Performed By: #### 5 0103 ####[facility] Neutrophils/100 leukocytes 75.4 % High 40.0-72.0 [facility] Comment on above: Performed By: #### 5 3 ####[facility] [place] [address], [facility] PLAT CNT 126 10*3/uL Low 150-400 [facility] Comment on above: Performed By: #### 5 0103 ####[facility] WBC (Leukocytes) 12.9 10*3/uL High 4.0-10.6 [facility] Comment on above: Performed By: #### 5 0103 ####[facility] [facility] COMP METABOLIC PANELon 08-11 Alanine aminotransferase (ALT) 8 U/L Normal 7-52 [facility] Comment on above: Performed By: #### 0 0121, 85091 ####[facility] [facility].[address] Albumin 2.6 g/dL Low 3.5-5.7 [facility] Comment on above: Performed By: #### 0 0121, 83141 ####[facility] ALKALINE PHOSPH 34 IU/L Normal 34-104 [facility] Comment on above: Performed By: #### 0 0121, 09424 ####[place] [address] [facility].[address] Aspartate aminotransferase (AST) 11 U/L Low 13-39 [facility] Comment on above: Performed By: #### 0 0121, 31937 ####[facility] Bilirubin (total) 0.7 mg/dL Normal 0.3-1.0 [facility] Comment on above: Performed By: #### 0 0121, 45762 ####[facility] Calcium 7.4 mg/dL Low 8.6-10.3 [facility] Comment on above: Performed By: #### 0 0121, 14753 ####[facility].[address] Chloride 112 mmol/L High 98-107 [facility] Comment on above: Performed By: #### 0 0121, 39642 ####[facility] [place] [address], [facility] CO2 22 mmol/L Normal 21-31 [facility] Comment on above: Performed By: #### 0 0121, 05996 ####[facility].[address] Creatinine 0.83 mg/dL Normal 0.60-1.20 [facility] Comment on above: Performed By: #### 0 0121, 02224 ####[address] eGFR (black) mL/min/{1.73_m2} Normal >60 [facility] Comment on above: Result Comment: Calc ulation may not be valid for patients over 70 years Performed By: #### 0 0121, 58921 ####[place] [address] [facility].[address] eGFR (non-black) mL/min/{1.73_m2} Normal >60 [facility] Comment on above: Result Comment: Calc ulation may not be valid for patients over 70 years Performed By: #### 0 0121, 77111 ####[facility] [place] [address], [facility] Glucose mass conc 138 mg/dL High 70-100 [facility] Comment on above: Performed By: #### 0 0121, 72022 ####[place] [address] [place] [address], [facility] Potassium molar conc 4.0 mmol/L Normal 3.5-5.1 [facility] Comment on above: Performed By: #### 0 0121, 39527 ####[facility] [place] [address], [facility] Protein 4.1 g/dL Low 6.0-8.3 [facility] Comment on above: Performed By: #### 0 0121, 25875 ####[facility] [address], [facility] Sodium 138 mmol/L Normal 136-145 [facility] Comment on above: Performed By: #### 0 0121, 34362 ####[facility] [place] [address], [facility] Urea nitrogen 16 mg/dL Normal 7-25 [facility] Comment on above: Performed By: #### 0 0121, 74059 ####[facility].[address] Consultationon 08-11-2017 Consultation MR#: [id number] Pt. Name: Judith Khan Date of Service: 08/10/2017 Room #: SIC [id number] Birthdate: 1945 Referring Physician: JAYE FOR CONSULTATION: Critical care management status post splenectomy,ventilatory management.HISTORY OF PRESENT ILLNESS: Ms. Judith Khan is a 72-year-old female witha history of hypertension, hyperlipidemia, diabetes, and COPD, whopresented as a transfer from [place], [place] with a traumatic brain injury.The patient reportedly fell, as [facility] 07[facility], in her home. She had [...] days. She presented to the hospital in [place], [place], and aCT abdomen and pelvis was obtained that demonstrated a grade 5 spleniclaceration. The patient was initially hemodynamically stable per reportsfrom the outside facility, however she became markedly hypotensive,unresponsive to multiple fluid boluses, and was transferred [facility] as a level 1 trauma. [place] [place] she had received 3 L of crystalloid and 4 units of blood atthat time and only transiently responded to this fluid resuscitation. Shewas hypotensive in the [facility] [place] and an emergent right femoral Cordis wasplaced [...] chronic obstructivepulmonary disease, not on home O2; nau-voqioya-rebrgdidi diabetes mellitus,type 2; anxiety.PAST SURGICAL HISTORY: Hysterectomy, [...] outside facilityreviewed with attending surgeon in [facility] [place] with evidence of rupturedspleen with blood products throughout the abdomen, left upper quadrant,right upper quadrant, and into the pelvis. No other traumatic injury isidentified.ASSESSMENT AND PLAN: Ms. Judith Khan is a 72-year-old female withhistory of hypertension, hyperlipidemia, chronic obstructive pulmonarydisease, and diabetes mellitus, who [facility]otomy and splenectomy for traumatic injury,fall from standing approximately 2 weeks prior.Neurologic: No history of CVA or neurological deficits in past. GCS is 15reported in the [facility] [place], currently GCS is 3T, intubated and sedated.She [...] the setting ofcritical care status.Endocrine: History of afs-qovgfuf-shivqeakq diabetes mellitus, type 2, onhome metformin. We [...] was placed in emergent setting [place] [place], this will be removed/replaced within 24 hours after placement.Peripheral IV x2. Monroe catheter for above listed indication.Gastrointestinal prophylaxis: Protonix 40 mg IV once daily for stressulcer prophylaxis.Venous thrombosis prophylaxis: External pneumatic compression devices areplaced, pharmacologic prophylaxis contraindicated at this time due to highrisk for bleed in setting of acute blood loss anemia. Ventilatorassociated pneumonia prophylaxis as listed above.The patient seen and examined with plan of care discussed with attending,Dr. Olson.Electronically Signed by:Alexander Olson M.D. 08/12/2017 05:12 P Alexander Olson M.D. I personally saw this patient on the day of the encounter, performed thekey portion(s) of the service and participated in the management andconfirm the resident's documentation. Please note there may be anadditional personal documentation from me. Date Dict: 08/11/2017/04:38 A/Pippa Gutierrez Trans: 08/11/2017 02:22 P/mmoDN_JN:[id number] Normal [facility] FRESH FROZEN PLASMA 2 UNITSo n 08-11-2017 PRODUCT CODE 1 E2701 Normal [facility] Comment on above: Order Comment: INR: 1.22 ,PTT: 27.2 at the time of order ;Indication: Activebleeding/invasive procedure with prolonged PT/PTT or INR > 1.6 Performed By: #### 1 0544, 36597 ####[facility] PRODUCT CODE 2 E2701 Normal [facility] Comment on above: Order Comment: INR: 1.22 ,PTT: 27.2 at the time of order ;Indication: Activebleeding/invasive procedure with prolonged PT/PTT or INR > 1.6 Performed By: #### 1 53, ####[facility] PRODUCT STATUS 1 PT Normal [facility] Comment on above: Order Comment: INR: 1.22 ,PTT: 27.2 at the time of order ;Indication: Activebleeding/invasive procedure with prolonged PT/PTT or INR > 1.6 Result Comment: Resu lt changed by IF on 08/11/2017 00:27. The previous value was XX.Result changed by IF on 08/12/2017 02:00. The previous value was IS. Performed By: #### 1 53, ####[facility].[address] PRODUCT STATUS 2 PT Normal [facility] Comment on above: Order Comment: INR: 1.22 ,PTT: 27.2 at the time of order ;Indication: Activebleeding/invasive procedure with prolonged PT/PTT or INR > 1.6 Result Comment: Resu lt changed by IF on 08/11/2017 03:17. The previous value was XM.Result changed by IF on 08/13/2017 02:00. The previous value was IS. Performed By: #### 1 53, ####[facility].[address] UNIT ABO 1 O Normal [facility] Comment on above: Order Comment: INR: 1.22 ,PTT: 27.2 at the time of order ;Indication: Activebleeding/invasive procedure with prolonged PT/PTT or INR > 1.6 Performed By: #### 1 53, ####[facility].[address] UNIT ABO 2 O Normal [facility] Comment on above: Order Comment: INR: 1.22 ,PTT: 27.2 at the time of order ;Indication: Activebleeding/invasive procedure with prolonged PT/PTT or INR > 1.6 Performed By: #### 1 53, ####[facility] UNIT ID 1 [id number] Normal [facility] Comment on above: Order Comment: INR: 1.22 ,PTT: 27.2 at the time of order ;Indication: Activebleeding/invasive procedure with prolonged PT/PTT or INR > 1.6 Performed By: #### 1 53, ####[facility] UNIT ID 2 [id number] Normal [facility] Comment on above: Order Comment: INR: 1.22 ,PTT: 27.2 at the time of order ;Indication: Activebleeding/invasive procedure with prolonged PT/PTT or INR > 1.6 Performed By: #### 1 53, ####[facility] UNIT RH 1 Positive Normal [facility] Comment on above: Order Comment: INR: 1.22 ,PTT: 27.2 at the time of order ;Indication: Activebleeding/invasive procedure with prolonged PT/PTT or INR > 1.6 Performed By: #### 1 53, ####[facility] UNIT RH 2 Negative Normal [facility] Comment on above: Order Comment: INR: 1.22 ,PTT: 27.2 at the time of order ;Indication: Activebleeding/invasive procedure with prolonged PT/PTT or INR > 1.6 Performed By: #### 1 53, ####[facility] HEMATOCRITon 08-11-2017 Hematocrit (HCT) 37.7 % Normal 36.0-45.0 [facility] Comment on above: Order Comment: No: D o not add to previous draw Performed By: #### 1 53, ####[facility] Hematocrit (HCT) 34.8 % Low 36.0-45.0 [facility] Comment on above: Order Comment: No: D o not add to previous draw Performed By: #### 1 53, ####[facility] HEMOGLOBINon 08-11-2017 Hemoglobin mass conc (Bld) 12.7 g/dL Normal 12.0-15.0 [facility] Comment on above: Order Comment: No: D o not add to previous drawLAB DRAW NOW - PER CECY MCELROY Performed By: #### 1 53, ####[facility] Hemoglobin mass conc (Bld) 11.8 g/dL Low 12.0-15.0 [facility] Comment on above: Order Comment: No: D o not add to previous draw Performed By: #### 1 53, ####[facility] History and Physicalon 08-11 History and Physical MR#: [id number] Pt. Name: Judith Khan Admitted: 08/11/2017 Date of : 1945 Attending Physician: Alexander Olson M.D. Room #: SIC [id number] Discharge Date: HISTORY AND PHYSICALCHIEF COMPLAINT: Trauma [...] any other blood products. [facility] due [...] they were fluctuating while in the [facility] [place],stabilized with fluid.GENERAL: Alert and oriented, no acute [...] wall in the ED, expiratory wheezes noted bilaterally.CARDIOVASCULAR: Regular rate and rhythm, normal heart sounds, [...] Dict: 08/11/2017/12:27 Susan/Pippa Delgado Trans: 08/11/2017 08:41 A/mmoDN_JN:[id number] Normal [facility] LACTATE BLOODon 08-11-2017 Lactate 1.1 mmol/L Normal .5-2.2 [facility] Comment on above: Order Comment: No: D o not add to previous draw Performed By: #### 1 53, ####[facility] [place] [address], [facility] Lactate 1.3 mmol/L Normal .5-2.2 [facility] Comment on above: Performed By: #### 1 53, ####[facility] [place] [address], [facility] LIPASE BLOODon 08-11-2017 Lipase 13 Units/L Normal 11-82 [facility] Comment on above: Performed By: #### 0 0121, 36533 ####[facility] [place] [address], [facility] LIVER BATTERYon 08-11-2017 Alanine aminotransferase (ALT) 18 U/L Normal 7-52 [facility] Comment on above: Order Comment: No: D o not add to previous draw Performed By: #### 1 53, ####[facility] [place] [address], [place] Albumin 2.8 g/dL Low 3.5-5.7 [facility] Comment on above: Order Comment: No: D o not add to previous draw Performed By: #### 1 53, ####[facility] [place] [address], [facility] ALKALINE PHOSPH 36 IU/L Normal 34-104 [facility] Comment on above: Order Comment: No: D o not add to previous draw Performed By: #### 1 53, ####[facility] [place] [address], [place] Aspartate aminotransferase (AST) 30 U/L Normal 13-39 [facility] Comment on above: Order Comment: No: D o not add to previous draw Performed By: #### 1 53, ####[facility] [place] [address], [place] Bilirubin (direct) 0.2 mg/dL Normal 0.0-0.2 [facility] Comment on above: Order Comment: No: D o not add to previous draw Performed By: #### 1 53, ####[facility] [place] [address], [place] Bilirubin (total) 0.9 mg/dL Normal 0.3-1.0 [facility] Comment on above: Order Comment: No: D o not add to previous draw Performed By: #### 1 53, ####[facility] [place] [address], [place] Protein 4.0 g/dL Low 6.0-8.3 [facility] Comment on above: Order Comment: No: D o not add to previous draw Performed By: #### 1 53, ####[facility] [place] [address], [facility] MAGNESIUM BLOODon 08-11-2017 Magnesium 1.4 mg/dL Low 1.9-2.7 [facility] Comment on above: Order Comment: No: D o not add to previous draw Performed By: #### 1 53, ####[facility].[address] Operative Reporton 8 Operative Report MR#: [id number] [facility] Room #: SIC [id number] Discharge Date: Birthdate: 1945 OPERATIVE REPORTDATE OF SURGERY: 08/11/2017SURGEON: Alexander Olson M.D.ASSISTANTS: Aldo Villasenor M.D. PhD; ALEXANDER GutierrezREOPERATIVE DIAGNOSES: Traumatic splenic rupture.POSTOPERATIVE DIAGNOSIS: Traumatic splenic rupture.PROCEDURE: Splenectomy for trauma.INDICATION: This is a 72-year-old white female, [facility] [...] 08/11/2017/06:29 A/Aldo Villasenor, MDDate Trans: 08/11/2017 03:54 P/mmoDN_JN:[id number] Normal [facility] PHOSPHORUS BLOODon 8 Phosphate 3.1 mg/dL Normal 2.5-5.0 [facility] Comment on above: Order Comment: No: D o not add to previous draw Performed By: #### 1 53, ####[facility] PLATELET APHERESIS 1 UNITon 08-11-2017 PRODUCT CODE 1 E7006 [facility] Comment on above: Order Comment: Plt c ount at the time of order: 126 ;Indication: Platelet-inhibitingdrug therapy with invasive procedure/bleeding Performed By: #### 1 53, ####[facility] PRODUCT STATUS 1 PT Normal [facility] Comment on above: Order Comment: Plt c ount at the time of order: 126 ;Indication: Platelet-inhibitingdrug therapy with invasive procedure/bleeding Result Comment: Resu lt changed by IF on 08/11/2017 00:20. The previous value was XM.Result changed by IF on 08/12/2017 02:00. The previous value was IS. Performed By: #### 1 53, ####[facility].[address] UNIT ABO 1 O Normal [facility] Comment on above: Order Comment: Plt c ount at the time of order: 126 ;Indication: Platelet-inhibitingdrug therapy with invasive procedure/bleeding Performed By: #### 1 53, ####[facility] [place] [address].[address] UNIT ID 1 [id number] Normal [facility] Comment on above: Order Comment: Plt c ount at the time of order: 126 ;Indication: Platelet-inhibitingdrug therapy with invasive procedure/bleeding Performed By: #### 1 53, ####[facility] [place] [address].[address] UNIT RH 1 Positive Normal [facility] Comment on above: Order Comment: Plt c ount at the time of order: 126 ;Indication: Platelet-inhibitingdrug therapy with invasive procedure/bleeding Performed By: #### 1 53, ####[address] POC GLUCOSE LABon 08-11-2017 Glucose mass conc 100 mg/dL Normal 70-100 [facility] Comment on above: Performed By: #### 1 53, ####[address] PORTABLE ABDOMENon 8 PORTABLE ABDOMEN [facility] [address] [place] [address] Patient Name: JUDITH KHAN : 1945Sex: FAge: Race: WhiteMRN: [id number]. Location: EMERPatient Status: IVisit #: [id number] Date: 08/11/2017 12:35:00 AMCompleted Date: 08/11/2017 01:07 AMRequesting Provider: ALEXANDER OLSON Attending Provider: ALEXANDER OLSON Report Copy To: Signs & Symptoms: Intra-op portable abdomenHistory: R/O foreign bodyComments: R/O foreign bodyExam: PORTABLE ABDOMENAccession #: [id number] POR TABLE ABDOMEN 08/11/2017 1:07 AM EST SIGNS AND [...] findings. Electronically signed by:Kristian Nascimento. Transcribed by: [email or web address], User Resident: NICOLETTE TOTHANElectronically Signed by: KRISTIAN NASCIMENTO @ 08/11/2017 12:16 PMI personally read this/these film(s) with this resident Normal [facility] Comment on above: Order Comment: R/O f oreign body PORTABLE CHEST 1 VIEWon PORTABLE CHEST 1 VIEW [facility] [address] [place] [address] Patient Name: JUDITH KHAN : 1945Sex: FAge: Race: WhiteMRN: [id number]. Location: [id number] Status: IVisit #: [id number] Date: 08/11/2017 1:45:00 AMCompleted Date: 08/11/2017 02:13 AMRequesting Provider: CARMENZA WINTER Attending Provider: ALEXANDER OLSON Report Copy To: Signs & Symptoms: Post OPHistory: Patient history not availableComments: Check E.T. Position, also to chest OGT placementExam: PORTABLE CHEST 1 VIEWAccession #: [id number] POR TABLE CHEST 1 VIEW 08/11/2017 2:13 AM EST [...] findings. Electronically signed by:Kristian Nascimento. Transcribed by: [email or web address], User Resident: NICOLETTE TOTHANElectronically Signed by: KRISTIAN NASCIMENTO @ 08/11/2017 12:17 PMI personally read this/these film(s) with this resident Normal [facility] Comment on above: Order Comment: Check E.T. Position, also to chest OGT placement PROTHROMBIN TIMEon 8 INR Coag RelTime (PPP) 1.44 {INR} High 0.91-1.16 [facility] Comment on above: Order Comment: No: D [...] OF ACTION, CLINICALEFFECTIVENESS, AND OPTIMAL THERAPEUTIC RANGE. [id number];108:231S-246S. Performed By: #### 1 53, ####[facility].[address] Prothrombin time (PT) Coag time (PPP) 17.7 s High 12.3-14.8 [facility] Comment on above: Order Comment: No: D o not add to previous draw Result Comment: ALL RESULTS MUST BE INTERPRETED WITH RESPECT TO BLOOD DRAWING ARTIFACTOR DILUTION ERROR OF ANTICOAGULANT AT THE TIME OF SAMPLING. Performed By: #### 1 53, ####[facility].[address] INR Coag RelTime (PPP) 1.22 {INR} High 0.91-1.16 [facility] Comment on above: Result Comment: ACCC P RECOMMENDED INR FOR WARFARIN THERAPY CONDITION INRPROPHYLAXIS OF VENOUS THROMBOSIS 2-3(HIGH-RISK SURGERY)TREATMENT OF VENOUS THROMBOSIS 2-3TREATMENT OF PULMONARY EMBOLISM 2-3PREVENTION OF SYSTEMIC EMBOLISM: 2-3 ACUTE MYOCARDIAL INFARCTION TISSUE HEART VALVES VALVULAR HEART DISEASE ATRIAL FIBRILLATION RECURRENT SYSTEMIC EMBOLISMMECHANICAL HEART VALVE 2.5-3.5 FROM: ORAL ANTICOAGULANTS. MECHANISM OF ACTION, CLINICALEFFECTIVENESS, AND OPTIMAL THERAPEUTIC RANGE. [id number];108:231S-246S. Performed By: #### 5 6101, 64476 ####[facility] [place] [address], [facility] Prothrombin time (PT) Coag time (PPP) 15.5 s High 12.3-14.8 [facility] Comment on above: Result Comment: ALL RESULTS MUST BE INTERPRETED WITH RESPECT TO BLOOD DRAWING ARTIFACTOR DILUTION ERROR OF ANTICOAGULANT AT THE TIME OF SAMPLING. Performed By: #### 5 6101, 16097 ####[facility] [place] [address], [facility] RBC'S 4 UNITSon 08-11-2017 CROSSMATCH INTERP 1 COMP Normal [facility] Comment on above: Performed By: #### 8 6004 ####[facility] [place] [address], [facility] CROSSMATCH INTERP 2 COMP Normal [facility] Comment on above: Performed By: #### 8 6004 ####[facility] [place] [address], [facility] CROSSMATCH INTERP 3 COMP Normal [facility] Comment on above: Performed By: #### 8 6004 ####[facility] [place] [address], [place] CROSSMATCH INTERP 4 COMP Normal [facility] Comment on above: Performed By: #### 8 6004 ####[facility] [place] [address], [facility] PRODUCT CODE 1 E0686 Normal [facility] Comment on above: Performed By: #### 8 6004 ####[facility] [place] [address], [place] PRODUCT CODE 2 E0336 Normal [facility] Comment on above: Performed By: #### 8 6004 ####[facility] [place] [address], [place] PRODUCT CODE 3 E0336 Normal [facility] Comment on above: Performed By: #### 8 6004 ####[facility] [place] [address], [place] PRODUCT CODE 4 E0336 Normal [facility] Comment on above: Performed By: #### 8 6004 ####[facility] [place] [address], [facility] PRODUCT STATUS 1 RE Normal [facility] Comment on above: Result Comment: Resu lt changed by IF on 08/11/2017 00:26. The previous value was XM.Result changed by IF on 08/11/2017 01:42. The previous value was IS.Result changed by IF on 08/14/2017 07:03. The previous value was XM. Performed By: #### 8 6004 ####[facility] [place] [address], [facility] PRODUCT STATUS 2 PT Normal [facility] Comment on above: Result Comment: Resu lt changed by IF on 08/11/2017 00:26. The previous value was XM.Result changed by IF on 08/12/2017 02:00. The previous value was IS. Performed By: #### 8 6004 ####[facility] [place] [address], [place] PRODUCT STATUS 3 RE Normal [facility] Comment on above: Result Comment: Resu lt changed by IF on 08/12/2017 15:16. The previous value was XX. Performed By: #### 8 6004 ####[facility] [place] [address], [place] PRODUCT STATUS 4 RE Normal [facility] Comment on above: Result Comment: Resu lt changed by IF on 08/11/2017 00:26. The previous value was XM.Result changed by IF on 08/11/2017 01:42. The previous value was IS.Result changed by IF on 08/14/2017 07:03. The previous value was XM. Performed By: #### 8 6004 ####[facility] [place] [address], [place] UNIT ABO 1 O Normal [facility] Comment on above: Performed By: #### 8 6004 ####[facility] UNIT ABO 2 O Normal [facility] Comment on above: Performed By: #### 8 6004 ####[facility] UNIT ABO 3 O Normal [facility] Comment on above: Performed By: #### 8 6004 ####[facility] UNIT ABO 4 O Normal [facility] Comment on above: Performed By: #### 8 6004 ####[facility].[address] UNIT ID 1 [id number] Normal [facility] Comment on above: Performed By: #### 8 6004 ####[facility].[address] UNIT ID 2 [id number] Normal [facility] Comment on above: Performed By: #### 8 6004 ####[facility].[address] UNIT ID 3 [id number] Normal [facility] Comment on above: Performed By: #### 8 6004 ####[facility] UNIT ID 4 [id number] Normal [facility] Comment on above: Performed By: #### 8 6004 ####[facility] [place] [address], [facility] RH 1 Negative Normal [facility] Comment on above: Performed By: #### [id number] ####[facility] [place] [address], [facility] RH 2 Negative Normal [facility] Comment on above: Performed By: #### 8 [id number] ####[facility] [place] [address], [place] UNIT RH 3 Negative Normal [facility] Comment on above: Performed By: #### 8 [id number] ####[facility] [place] [address], [place] UN[place] RH 4 Negative Normal [facility] Comment on above: Performed By: #### 8 [id number] ####[facility] [place] [address], [place] SERUM TESTon 08-11 TEST Negative Normal [facility] Comment on above: Performed By: #### 4 [id number] ####[facility] [place] [address], [place] TYPE AND CROSSMATCHon 2017 ABO INTERPRETATION O Normal [facility] Comment on above: Performed By: #### 6 [id number] ####[facility] [place] [address], [place] ANTIBODY SCREEN Negative Normal [facility] Comment on above: Performed By: #### 6 [id number] ####[facility] [place] [address], [place] RH INTERPRETATION Negative Normal [facility] Comment on above: Performed By: #### 6 [id number] ####[facility] [place] [address], [place] Vital Signs Date Time Vital Sign Value Performing Clinician Facility 06-23-2023 14:00-0500 Hourly Rounding Mela Espinal [facility] 06-23-2023 14:00-0500 Promise to Return Mela Espinal [facility] 06-23-2023 13:00-0500 Hourly Rounding Mela Espinal [facility] 06-23-2023 13:00-0500 Promise to Return [facility] 06-23-2023 12:00-0500 Hourly Rounding [facility] 06-23-2023 12:00-0500 Promise to Return [facility] 06-23-2023 11:22-0500 Heart rate 107 /min [facility] 06-23-2023 11:22-0500 SaO2% (BldA) [Mass fraction] 94 % [facility] 06-23-2023 11:21-0500 Diastolic blood pressure 82 mm[Hg] [facility] 06-23-2023 11:21-0500 Mean blood pressure 108 mm[Hg] [facility] 06-23-2023 11:21-0500 Systolic blood pressure 162 mm[Hg] [facility] 06-23-2023 11:20-0500 Body temperature 97.7 [degF] [facility] 06-23-2023 08:20-0500 SaO2% (BldA) [Mass fraction] 98 % [facility] 06-23-2023 07:19-0500 Heart rate 84 /min [facility] 06-23-2023 07:19-0500 SaO2% (BldA) [Mass fraction] 100 % [facility] 06-23-2023 07:18-0500 Body temperature 97.52 [degF] [facility] 06-23-2023 07:18-0500 Diastolic blood pressure 81 mm[Hg] [facility] 06-23-2023 07:18-0500 Mean blood pressure 99 mm[Hg] [facility] 06-23-2023 07:18-0500 Systolic blood pressure 137 mm[Hg] [facility] 06-23-2023 06:17-0500 Blood Pressure Location [facility] 06-23-2023 06:17-0500 Body temperature 97.52 [degF] [facility] 06-23-2023 06:17-0500 Diastolic blood pressure 74 mm[Hg] [facility] 06-23-2023 06:17-0500 Heart rate 99 /min [facility] 06-23-2023 06:17-0500 Respiratory rate 17 /min [facility] 06-23-2023 06:17-0500 Systolic blood pressure 159 mm[Hg] [facility] 06-23-2023 05:01-0500 Heart rate 102 /min [facility] 06-23-2023 05:01-0500 Mean blood pressure 98 mm[Hg] [facility] 06-23-2023 05:01-0500 Respiratory rate 19 /min [facility] 06-23-2023 04:30-0500 Mean blood pressure 95 mm[Hg] [facility] 06-23-2023 04:30-0500 Respiratory rate 16 /min [facility] 06-23-2023 03:00-0500 Mean blood pressure 121 mm[Hg] [facility] 06-23-2023 03:00-0500 Respiratory rate 20 /min [facility] 06-23-2023 02:43-0500 Respiratory rate 18 /min [facility] 06-23-2023 02:30-0500 Respiratory rate 18 /min [facility] 06-23-2023 01:40-0500 gluc 96 mg/dL [facility] 06-23-2023 01:40-0500 gluc [facility] 06-23-2023 01:38-0500 gluc 96 mg/dL Mela Espinal [facility] 06-23-2023 01:38-0500 [facility] 06-23-2023 01:37-0500 Heart rate 117 /min Mela Espinal [facility] 05-15-2023 13:50-0500 Body height 167.64 cm MD Kavon Sams Work Phone: [facility] 05-15-2023 13:50-0500 Body weight 57.15 kg MD Kavon Sams Work Phone: [facility] Encounters Encounter Date Encounter Type Care Provider Facility Start: 08-14-2023 End: 08-14-2023 ambulatory Cathie Reid Facility:[facility] Start: 08-13-2023 End: 08-14-2023 ambulatory [facility] Start: 08-13-2023 End: 08-13-2023 ambulatory [facility] Start: 08-07-2023 End: 08-07-2023 ambulatory [facility] Start: 07-30-2023 End: 07-31-2023 ambulatory Rafa Abebe MD Facility:[facility] Start: 07-16-2023 End: 07-16-2023 Emergency department patient visit Demarco Beaver Facility:[facility] Start: 07-06-2023 End: 07-06-2023 ambulatory COOPER ROWLEY [facility] Start: 06-23-2023 End: 06-23-2023 ambulatory Mela Espinal Facility:[facility] Start: 06-23-2023 End: 06-23[facility] Start: 05-15-2023 End: 05-15-2023 ambulatory Cathie Reid Facility:[facility] Start: 05-15-2023 End: 05-15-2023 ambulatory MD Kavon Sams Work Phone: [facility] Work Phone: Start: 05-15-2023 End: 05-15-2023 Patient encounter procedure MD Kavon Sams Work Phone: [facility] [place] Work Phone: Start: 01-12-2023 End: 01-12-2023 ambulatory [facility] Start: 10-09-2022 End: 10-10-[address] KAVON SAMS . Facility: Start: 05-24-2022 End: 05-25-[address] KAVON SAMS . Facility: Start: 05-08-2022 End: 05-10-2022 Evaluation and management of inpatient DR KAVON SAMS . Facility: Start: 03-29-2022 End: 03-29-[address] MISAEL PEDRAZA . Facility: Start: 12-27-2021 End: 12-28-[address] KAVON SAMS . Facility: Start: 08-13-2017 End: 08-14-2017 Ambulatory DEFAULT PHYSICIAN Facility:[facility] Start: 08-11-2017 End: 08-15-2017 Evaluation and management of inpatient REFERRED SELF Facility:[facility] Procedures Date Procedure Procedure Detail Performing Clinician Start: 05-15-2023 MRI of head MD Kavon Sams Work Phone: Start: 03-04-2020 Removal of stent Magda Espinal Start: 08-14-2017 INTRODUCTION OF SERUM/TOX/VACCINE INTO MUSCLE, PERC APPROACH SUPA MAY Start: 08-11-2017 MEASURE OF ARTERIAL SATURATION, PERIPHERAL, PERC APPROACH SUPA MAY Start: 08-11-2017 RESECTION OF SPLEEN, OPEN APPROACH ATHANASIOS BRAMOS Start: 08-11-2017 TRANSFUSE NONAUT FRO KRYSTYNA PLASMA IN PERIPH VEIN, PERC SUPA MELENDEZIDBob Start: 08-11-2017 TRANSFUSE NONAUT HARRY TELETS IN PERIPH VEIN, PERC SUPA Irving HEIDBob Start: 08-11-2017 TRANSFUSE NONAUT RED BLOOD CELLS IN PERIPH VEIN, PERC SUPA Irving HEIDT Appendectomy Mela Gennari Cataract (morphologi c abnormality) Mela Gennari Hysterectomy Mela Gennari Splenectomy Mela Gennari Payers Date Payer Category Payer Medicare [id number] 2023 Medicare 2023 Unknown 2023 Self-pay [id number] 1958 Medicare [id number] 1959 Unknown [id number] 1945 Unknown [id number] 2.16.84 [id number] 1945 Unknown [id number] 2.16.84 [id number] 1945 Unknown [id number] 2.16.84 [id number] 1945 Unknown [id number] 2.16.84 [id number] 1945 Unknown [id number] 2.16.84 [id number] 1945 Unknown [id number] 2.16.8 [id number] 1945 Unknown [id number] 2.16.8 [id number] 1945 Unknown [id number] 2.16. [id number] Medicare [id number] Unknown [id number] 2.16.8 [id number] Unknown [id number] 2.16.8 [id number] Social History Date Type Detail Facility Tobacco smoking stat [facility] Unknown if ever smoked [facility] Work Phone: Start: 1945 Sex Assigned At Female [facility] Start: 03-04-2020 Tobacco smoking status Ex-smoker (fi nding) [facility] Sex Assigned At Female [facility] Functional Status Date Assessment Result Facility 06-23-2023 Functional Status N/A [facility] 06-23-2023 Functional Status [facility] Clinical Notes 08-04-2020 to 08-13-2023 Note Date & Type Note Facility 08-13-2023 Note Patient: Judith stoner Procedure Summary Date: 08/13/23 Room / Location: [facility] OPERATING ROOM / [facility] Operating Room Anesthesia Start: 731 Anesthesia Stop: 800 Procedure: EGD (ESOPHAGOGASTRODUODENOSCOPY) Diagnosis: Chronic gastric ulcer without hemorrhage and without perforation (Hiatal hernia [K44.9]) Surgeons: Verena Sheehan MD Responsible Provider: Elian Norris MD Anesthesia Type: MAC ASA Status: 3 Anesthesia Type: MAC Vitals Value Taken Time BP 160/76 08/13/23 0835 Temp 36.2 ???C (97.2 ???F) 08/13/23 0835 Pulse 80 08/13/23 0835 Resp 16 08/13/23 0835 SpO2 94 % 08/13/23 0835 Anesthesia Post Evaluation Patient location during evaluation: PACU Patient participation: complete - patient participated Level of consciousness: awake and alert Pain management: adequate Airway patency: patent Cardiovascular status: acceptable Respiratory status: acceptable Hydration status: acceptable Patient is hemodynamically stable and is able to be discharged from PACU per anesthesia protocol. No notable events documented. [facility] 08-13-2023 Note [facility] HISTORY AND PHYSICAL Reason for Admission: EGD History of Present Illness: Judith Khan is a 78 y.o. female with a hiatal hernia. Here today for elective EGD. No changes since prior exam no new acute concerns. Past Medical History: Diagnosis Date COPD (chronic obstructive pulmonary disease) ([facility]) Emphysema lung ([facility]) HISTORY OF Hiatal hernia 05/2023 Hyperlipidemia Hypertension Parkinson disease Renal stones TIA (transient ischemic attack) 06/2023 SYMPTOMS UPJ obstruction, acquired UTI (urinary tract infection) 06/2023 Past Surgical History: Procedure Laterality Date CARDIAC CATHETERIZATION FOOT SURGERY HYSTERECTOMY Allergies Allergen Reactions Sulfa (Sulfonamide Antibiotics) Anaphylaxis Current Facility-Administered Medications: lactated Ringer's infusion, 30 mL/hr, intravenous, Continuous, Juyan Pourturk, MD, Last Rate: 30 mL/hr at 08/13/23 0634, 30 mL/hr at 08/13/23 0634 Insert peripheral IV, , , Once AND Saline lock IV, , , Once AND sodium chloride flush 10 mL, 10 mL, intravenous, q8h PRN, Arlene Castillo MD Social History Socioeconomic History Marital status: Spouse name: Not on file Number of children: Not on file Years of education: Not on file Highest education level: Not on file Occupational History Not on file Tobacco Use Smoking status: Former Types: Cigarettes Quit date: 2017 Years since quittin.1 Smokeless tobacco: Never Substance and Sexual Activity Alcohol use: Never Drug use: Never Sexual activity: Not on file Other Topics Concern Not on file Social History Narrative Not on file Social Determinants of Health Financial Resource Strain: Not on file Food Insecurity: Not on file Transportation Needs: Not on file Physical Activity: Not on file Stress: Not on file Social Connections: Not on file Intimate Partner Violence: Unknown (08/07/2023) Humiliation, Afraid, Rape, and Kick questionnaire Fear of Current or Ex-Partner: No Emotionally Abused: Not on file Physically Abused: Not on file Sexually Abused: Not on file Housing Stability: Not on file Family History Problem Relation Name Age of Onset Stroke Mother Stroke Brother Other (cabg) Mother's Sister Coronary artery disease Mother's Sister Stroke Maternal Grandmother Physical Exam Constitutional: General: She is not in acute distress. Appearance: She is normal weight. She is not ill-appearing. HENT: Head: Normocephalic and atraumatic. Mouth/Throat: Mouth: Mucous membranes are moist. Pharynx: Oropharynx is clear. Eyes: General: No scleral icterus. Conjunctiva/sclera: Conjunctivae normal. Pupils: Pupils are equal, round, and reactive to light. Cardiovascular: Rate and Rhythm: Normal rate and regular rhythm. Pulses: Normal pulses. Heart sounds: Normal heart sounds. Pulmonary: Effort: Pulmonary effort is normal. No respiratory distress. Breath sounds: Normal breath sounds. Abdominal: General: Abdomen is flat. There is no distension. Palpations: Abdomen is soft. Musculoskeletal: General: Normal range of motion. Cervical back: Normal range of motion. Skin: General: Skin is warm and dry. Coloration: Skin is not jaundiced. Neurological: General: No focal deficit present. Mental Status: She is alert. Mental status is at baseline. Psychiatric: Mood and Affect: Mood normal. Behavior: Behavior normal. Vital Signs: Blood pressure 176/68, temperature 36.5 ???C (97.7 ???F), temperature source Temporal, resp. rate 16, height 1.676 m (5' 6 ), weight 55.2 kg (121 lb 11.1 oz), SpO2 93 %. Admission Weight: Weight: 55.2 kg (121 lb 11.1 oz) Labs: No results found for: WBC , HGB , HCT , MCV , PLT No results found for: GLU , CALCIUM , NA , K , CO2 , CL , BUN , CREATININE No results found for: AMYLASE No results found for: LIPASE No results found for: ALT , AST , GGT , ALKPHOS , LABBILI No results found for: INR , PROTIME Imaging: XR chest 1 view Narrative: [facility] Department of Radiology [address] [place] [id number] Patient Name: JUDITH KHAN : 1945 Sex: F Age: Race: White^White Pt. Location: [address] [place] [address] Patient Status: I Ordered Date: 08/15/2017 7:05:00 AM Completed Date: 08/15/2017 07:54 AM Requesting Provider: JOSH PALMER Attending Provider: ALEXANDER OLSON Report Copy To: Signs & Symptoms: O2 Desaturation History: Patient history not available Comments: R/O Effusion Exam: PORTABLE CHEST 1 VIEW PORTABLE CHEST 1 VIEW 08/15/2017 7:54 AM EST SIGNS AND SYMPTOMS: O2 Desaturation TECHNOLOGIST COMMENTS: SOB Q (more content not included)... [facility] 08-13-2023 Note Patient: Judith stoner Procedure Information Date/Time: 08/13/23729 Procedure: EGD (ESOPHAGOGASTRODUODENOSCOPY) Location: [facility] OPERATING ROOM 01 / [facility] Operating Room Surgeons: Verena Sheehan MD Relevant Problems Anesthesia denies anesthesia issues Cardio (+) Hypertension GI (+) Hiatal hernia /Renal frequent utis (+) Kidney disease Neuro/Psych possible TIA in past; Parkinson's Pulmonary quit smoking 2017; doesn't use inhalers Nervous (+) Parkinson's disease Clinical information reviewed: Tobacco Allergies Meds Med Hx Surg Hx Fam Hx Soc Hx Physical Exam Airway Mallampati: II TM distance: >3 FB Neck ROM: full Cardiovascular - normal exam Dental (+) upper dentures, lower dentures Pulmonary - normal exam Abdominal - normal exam Anesthesia Plan ASA 3 MAC (MAC with IV SED, standard ASA monitoring) The patient is not a current smoker. Patient did not smoke on day of procedure. intravenous induction Anesthetic plan and risks discussed with patient. Use of blood products discussed with patient who consented to blood products. Plan discussed with attending and resident. Additional Equipment Requests [facility] 08-08-2023 Note PRE OP INSTRUCTIONS REVIEWED WITH DAUGHTER CHRISTINA TRIPATHI MEDIATIONS TO HOLD PRIOR TO PROCEDURE DATE 3/4 MEDICATIONS TO TAKE DAY OF SURGERY WITH SIP OF WATER XANAX AMLODIPINE ISOSORBIDE GABAPENTIN IF YOU ARE GOING HOME AFTER YOUR SURGERY OR PROCEDURE, FOR YOUR SAFETY, YOUR SURGERY WILL BE CANCELLED IF BOTH OF THE FOLLOWING ARE NOT AVAILABLE: An adult wheat combine driver over the age of 18, that can receive information about your care after surgery, and drive you home. A responsible adult to stay with you for 24 hours in case of an emergency. Can be same as above. The highest risk of complications is within the first 24 hours after sedation/anesthesia. Nothing to eat or drink after midnight the night before surgery. This includes gum, candy, mints, and lozenges. No alcohol, marijuana, or tobacco products including vaping for 24 hours. Please brush your teeth; don't swallow the toothpaste or water. If you use dentures, wear them but do not use paste. Please leave any other removable dental hardware at home. Do not put in contact lenses. Do not wear perfume, make-up, nail yakut, or lotions on the day of your surgery or procedure. Follow skin-prep/wipe instructions as below if required. Bring with you: *Insurance card *Photo ID *Medication list *Co-pay for visit/prescriptions If applicable: *Rescue inhalers *Green bracelet from lab *CPAP or BiPAP machine, if staying overnight *Any braces, splints, or equipment ordered preoperatively *Remote controls for implanted devices Leave at home: *Purse/Wallet/Blackman- unless needed for co-pay *Cell phone (can leave with family/friend or place in locker if needed) *Jewelry (including piercings and wedding bands) *If not possible, ask the person who is waiting with you to keep them Children under the age of 12 will not be allowed into patient care areas. We will call you between 3pm and 4pm the day before your surgery to give you an arrival time. If you do not receive this call, have any questions, or need to make any changes, please call [phone]. Notify your surgeon if you develop any illness such as a cold, cough, fever, sore throat or vomiting between now and your surgery. Thank you for entrusting us with your care. [facility] Surgical Services Team [facility] 08-07-2023 Note Subjective Patient ID: Judith Khan is a 78 y.o. female who presents for New Patient (Judith is here as a new patient for hiatal hernia, s/p ecko). HPI 78 years old female is visiting for possible large hiatal hernia. Patient also complaining of shortness of breath, weakness. He unable to walk to the clinic from parking lot. Review of Systems Constitutional: Negative. HENT: Negative. Eyes: Negative. Respiratory: Negative. Cardiovascular: Negative. Gastrointestinal: Positive for diarrhea. Endocrine: Negative. Genitourinary: Negative. Musculoskeletal: Negative. Skin: Negative. Allergic/Immunologic: Negative. Neurological: Positive for tremors. Hematological: Bruises/bleeds easily. Psychiatric/Behavioral: Negative. Objective Visit Vitals BP (!) 156/126 (BP Location: Right arm, Patient Position: Sitting) Pulse 99 Temp 36.3 ???C (97.3 ???F) (Oral) Physical Exam HENT: Head: Atraumatic. Cardiovascular: Rate and Rhythm: Normal rate. Pulmonary: Effort: Pulmonary effort is normal. Abdominal: General: Abdomen is flat. Palpations: Abdomen is soft. Musculoskeletal: Cervical back: Neck supple. Neurological: Mental Status: She is alert and oriented to person, place, and time. Assessment/Plan Large hiatal hernia EGD CT scan abdomen with oral contrast. Diagnosis Plan 1. Hiatal hernia Ambulatory referral to General Surgery No orders of the defined types were placed in this encounter. No results found for this or any previous visit (from the past 36 hour(s)). No follow-ups on file. [facility] 07-08-2023 Note Admission and Discha rge Information Admitting Physician - Mela Espinal MD Consulting Physician - Ramiro Louise MD Admitting [...] JOANNA Kauffman Within 1 to [facility] [place] [address]- Additional Instructions: Patient Education Weakness, Dktc-er-Ewpg Urinary Tract Infection, Adult [facility] Comment on above: Result Comment: Elec tronically Signed By: MATTHEW HERRERA, Haile\.br\Date and Time Signed: 07/08/23 16:24 EST 07-06-2023 Note Hypertension is stab le and well controlled Continue all meds as prescribed- norvasc, lisinopril- hydrochlorothiazide, metoprolol [facility] 07-06-2023 Note Hiatal hernia with c ompression on Lt atrium noted on TTE Referral to general surgery ordered [facility] 07-06-2023 Note Patient here for 6 m o follow up fatigue, hypertension, and hyperlipidemia. Metoprolol was put on hold at last apt in Jan 2023 to see if fatigue improved. A few weeks later she was admitted to [facility] for chest pain. Had another echo in May 2023, which showed hiatal hernia. Daughter states was admitted to [facility] recently for TIA symptoms and daughter states she was treated for UTI. She's still not taking metoprolol and feels less tired without it. She denies chest pain, SOB, lightheadedness/syncope, and palpitations. Review of Systems Constitutional: Positive for malaise/fatigue (improving). Musculoskeletal: Positive for arthritis, back pain and joint pain. Neurological: Positive for tremors. All other systems reviewed and are negative. [facility] 07-06-2023 Note [facility] CARDIOLOGY PROGR ESS NOTE HPI: Judith Khan is a 78 y.o. female here for review echocardiogram Patient here for 6 mo follow up fatigue, hypertension, and hyperlipidemia. Metoprolol was put on hold at last apt in Jan 2023 to see if fatigue improved. A few weeks later she was admitted to [facility] for chest pain. Had another echo in May 2023, which showed hiatal hernia. Daughter states was admitted to [facility] recently for TIA symptoms and daughter states [...] Plt Count 355 (150-450) 10^3/uL Emergency Department [id number] [facility] 5 Patient name: JUDITH KHAN MPV 11.2 (9.5-13.5) fL Neut % (Auto) 22.9 L (43.0-75.0) % Lymph % (Auto) 55.8 (20.5-60.0) % Shoshone % (Auto) 13.5 H (1.7-12.0) % Eos % (Auto) 6.4 (0.9-7.0) % Baso % (Auto) 1.3 (0.2-2.0) % Neut # (Auto) 1.9 (1.4-6.5) 10^3/uL Lymph # (Auto) 4.6 H (1.2-3.8) 10^3/uL Shoshone # (Auto) 1.1 H (0.3-0.8) 10^3/uL Eos [...] >60 (>=60) Est (more content not included)... [facility] 06-30-2023 Note Microbiology PROCEDURE: Blood Culture Charcoal [R1] SOURCE: Blood BODY SITE: Arm L COLLECTED DATE/TIME: 06/23/2023 01:59 EST RECEIVED DATE/TIME: 06/23/2023 02:53 EST START DATE/TIME: 06/23/2023 02:53 EST FREE TEXT SOURCE: Thea Stacy, Augie Sidhu M.D., Augie Charlton FINAL REPORTS Final Report [] Verified Date/Time: 06/30/2023 07:00 EST No growth at 7 days. Performing Locations R1: [facility], [address] [place] [address], [facility] Comment on above: Performed By: #### 1 [id number] ####[place] [address] 06-30-2023 Note Microbiology PROCEDURE: Blood Culture Charcoal [...] Locations R1: This test was performed at: [facility], [address] [place] [address], [facility] Comment on above: Performed By: #### [id number] #### [facility] [address] [place] [address] 06-24-2023 Note Chief Complaint weakness Reason for [...] says she had an open MRI in [place] within the past few months which she [...] but reportedly she has MRI images in [place] within the past few months that did [...] Medical History On (more content not included)... [facility] Comment on above: Result Comment: Elec tronically Signed By: Tony Fuentes DO.andreia\Date and Time Signed: 06/24/23 09:29 EST 06-23-2023 Hospital Discharge instructions Patient Education 06/23/2023 16:31:59 Weakness, Dina-cn-Pinb Weakness Weakness is a lack of strength. [...] about working with a physical therapist or quality review trainer to help you get stronger. General instructions Take ishe-nbs-uvtesln and prescription medicines only as told by [...] provider. Document Revised: 04/30/2022 Document Reviewed: 04/30/2022 [employer] Patient Education 2022 [employer]. 06/23/2023 16:31:55 Urinary Tract Infection, Adult Urinary [...] Treatment for this condition includes: Antibiotic medicine. Eybg-kws-ebezpbo medicines to treat discomfort. Drinking enough water [...] Follow these instructions at home: Medicines Take ovbk-lyj-ldcngco and prescription medicines only as told by [...] provider. Document Revised: 01/07/2021 Document Reviewed: 01/07/2021 [employer] Patient Education 2022 [employer]. Follow Up Care 06/23/2023 01:35:45 With:Ramiro Louise MD, NEU Address: [place] [phone]- When:1 to 2 weeks [facility] 06-23-2023 Note Chief Complaint states went [...] out of bed to go the bathroom. [place] weak all over and just felt like [...] 01:55:00) Lymph Auto: 15.1 % (06/23/23 01:55:00) Shoshone Auto: 11.3 % (06/23/23 01:55:00) Eos Auto: 0.8 % (06/23/23 01:55:00) Basophil Auto: 0.4 % (06/23/23 01:55:00) Neutro Absolute: 10.5 E9/L High (06/23/23 01:55:00) Lymph Absolute: 2.2 E9/L (06/23/23 01:55:00) Shoshone Absolute: 1.6 E9/L High (06/23/23 01:55:00) Eos [...] 1.8 mg/dL (06/23/23 (more content not included)... [facility] Comment on above: Result Comment: Elec tronically Signed By: MATTHEW HERRERA, Haile\.br\Date and Time Signed: 06/23/23 15:55 EST 06-23-2023 Note CRM entered the room to discuss dc planning. PCP, DME and insurance discussed. Patient is alert and involved in plan of care. Contact information provided and whiteboard updated. PT rec OPPT, pt is agreeable. Medicare Rights form discussed. Copy provided. Pt's family will transport. Ant dc 06/23 or 06/24. CRM to follow. [facility] Comment on above: Result Comment: Elec tronically Signed By: Haydee Melendez.andreia\Date and Time Signed: 06/23/23 14:05 EST 06-23-2023 [...] but reportedly she has MRI images in [place] within the past few months that did [...] Reports she just had an MRI in Dec at [facility]. Consult Neurology PT Eval ordered 2. Hypoxia [...] Blood Culture Charcoal CBC w/ Auto Diff [place] Stroke Scale Communication Order Physician to Nursing Continuous Pulse Oximetry CT Head or Brain w/o Contrast ECG 12 Lead Adult ED Cardiac Monitoring ED Physician consult Hospitalist for continued care eGFR Hepatic Function Panel Lactic Acid Magnesium Level NPO Diet Oxygen Therapy PT & PTT Rapid COVID Antigen ([facility]) Routine Capillary Glucose POC Saline Lock Insert Stroke Quality Measures Troponin 0 Hr. Troponin 3 Hr. Troponin 6 Hr. Troponin 9 Hr. TSH With T4fr Reflex UA With Cult Reflex Urine Culture Vital Signs XR Chest Single View Diagnostic Tests Pending * Blood Culture Charcoal 06/23/23 * Blood Culture Charcoal 06/23/23 * Urine Culture 06/23/23 [facility]01-13-2024 NotePT Evaluation done this date. Pt. with on AM-PAC this date. She feels she is at her baseline at this time, Recommend she uses her FWW at home as needed. She may benefit from outpatient PT for her Parkinson's. No further acute PT needs.[facility] 01-12-2023 NoteContinue [facility]inUn[facility] Hypertension is elevated in office most likely r/t white coat syndrome States b/p at home is typically 120's/70'[facility] 01-12-2023 NoteWill have pt hold metoprolol and see if her fatigue improves Continue to monitor b/p at home and call office for b/p increase greater than 130/80 or for any concerns.[facility]08-04-2023 Note Patient here for 6 mo follow [...] tremors. All other systems reviewed and are negative.[facility] 01-12-2023 NoteUTP CARDIOLOGY PROGRESS NOTE HPI: Judith [...] statin RTC 3-6 months or earlier if neededKind[facility]-2021 NotePatient Outreach (COVAMN) BILLIRAJUDITH ([id number]) 1945 F Date Time Provider Department 08/04/20 EMETERIO OSEGUERA During your visit today, we recorded the following information about you: Allergies As of Date: 08/04/2020 Noted Allergy Reaction ALEVE (NAPROXEN SODIUM) 07/02/2013 16 - Unknown SULFA (SULFONAMIDE ANTIBIOTICS) 07/02/2013 10 - Anaphylaxis Date Reviewed: 03/23/2020 Reviewed by: Ashley Stephens Ma - Fully Assessed Order(s):SARS-COVID VACCINE 1ST DOSE APPT [[id number]] Order #: [id number] FUTURE Prescriptions as of 08/04/2020 Sig: ASPIRIN [...] UTI (urinary tract infecti*03/23/2020 Encounter Status:Closed by NO NASCIMENTOUSER on 08/09/20[facility] Evaluation noteNo assessment information availableSt. Vincent Hospital Work Phone: Hospital course Narrative No data available for this section [facility] No data available for this section [facility] Summary Purpose Family History No Family [...] and content) DATE CREATED AUTHOR 11/30/2017 [facility] DATE CREATED AUTHOR AUTHOR'S ORGANIZ ATION 06/19/[address] [facility] DATE CREATED AUTHOR AUTHOR'S ORGANIZ ATION 10/13/2022 [facility] DATE CREATED AUTHOR AUTHOR'S ORGANIZ ATION 07/19/2023 [facility] DATE CREATED AUTHOR AUTHOR'S ORGANIZ ATION 08/11/2023 [facility] DATE CREATED AUTHOR AUTHOR'S ORGANIZ ATION 08/15/2023 [facility] DATE CREATED AUTHOR AUTHOR'S ORGANIZ ATION 08/17/2023 [facility] Care Teams (unrecognized sec tion and content) Team Status: Active Member Role Status Dates Kavon Sams MD Primary Care Provider Active Team Status: Inactive Member Role Status Dates Kavon Sams MD Primary Care Provider Active DIXIE [...] BE BASED ON THE PRIMARY CLINICAL RECORDS. [employer] [facility]. provides no warranty or guarantee of the accuracy or completeness of information in this document.
--- NOTE | 2023-08-20 13:51 | PM.CN ---
Consult Note: HPI Data of Consult Patient: known to practice within the last 3 years Consult date: 08/20/23 Requesting Physician: Rafa Abebe MD Primary Care Provider: Kavon Leary MD Consult Narrative Reason for consult: neck, low back pain Narrative: 78yof who presents for assessment. persistence of neck and low back pain for months. imaging reviewed, which shows multilevel facet arthropathy and spondylosis throughout cervical and lumbar spines. continues in provider directed home exercise program >6 weeks and has continues in physical therapy to date, without significant benefit. has had good relief with addition of flexeril and gabapentin. denies adverse med side effects. cc:: CC: Rafa Abebe MD Review of Systems ROS Status of ROS 10 or more systems reviewed and unremarkable except as noted in history and below [facility] History Acute diarrhea ?R19.7 - Diarrhea, unspecified (ICD-10) Acute kidney injury ?N17.9 - Acute kidney failure, unspecified (ICD-10) Hiatal hernia ?K44.9 - Diaphragmatic hernia without obstruction or gangrene (ICD-10) COPD (chronic obstructive pulmonary disease) ?J44.9 - Chronic obstructive pulmonary disease, unspecified (ICD-10) Parkinsons ?G20 - Parkinson's disease (ICD-10) Hypertension ?I10 - Essential (primary) hypertension (ICD-10) Surgical History History of appendectomy ?Z90.49 - Acquired absence of other specified parts of digestive tract (ICD-10) H/O: hysterectomy ?Z90.710 - Acquired absence of both cervix and uterus (ICD-10) H/O splenectomy ?Z90.81 - Acquired absence of spleen (ICD-10) Family History Brother Family history of stroke Family history of hypertension Mother Family history of stroke Family history of hypertension Father Family history of cancer Social History Within the past year, how often did you have a drink containing alcohol: never Within the past year, how many standard drinks containing alcohol did you have on a typical day: 1 or 2 Within the past year, how often did you have six or more drinks on one occasion: never Total score: 0 Score interpretation: A score less than 3 is consistent with normal alcohol consumption. Smoking status: Former smoker Non-prescribed substance use: denies use Previous occupational history: retired Highest level of school completed/degree received: high school graduate Are you now , , , , never or living with a partner: In a typical week, how many times do you talk on the telephone with family, friends, or neighbors: 3 or more times per week How often do you get together with friends or relatives: 3 or more times per week How often do you attend rastafari or mormonism services: 4 or more times per year Do you belong to any clubs or organizations such as rastafari groups unions, [employer] or athletic groups, or school groups: no Total score: 2 Score interpretation: A score of greater than or equal to 2 indicates the lowest level of social isolation. Little interest or pleasure in doing things: not at all Feeling down, depressed, or hopeless: not at all Feel stressed/tense/nervous/anxious/difficulty sleeping: not at all Gender Identity: female Meds Home Medications and Allergies Home Medications Medication Instructions Recorded Confirmed Type alprazolam 1 mg tablet 1.5 mg PO BEDTIME PRN sleep 02/08/23 08/10/23 History amlodipine 5 mg tablet 5 mg PO DAILY 02/08/23 08/10/23 History potassium chloride 20 mEq 20 meq PO BID 02/08/23 08/10/23 History tablet,extended release(part/cryst) (Klor-Con M) pravastatin 20 mg tablet 20 mg PO DAILY 02/08/23 08/10/23 History ascorbic acid (vitamin C) 1,000 mg 1 g PO DAILY 07/30/23 08/10/23 History capsule cholecalciferol (vitamin D3) 125 125 mcg PO DAILY 07/30/23 08/10/23 History mcg (5,000 unit) capsule cyclobenzaprine 10 mg tablet 10 mg PO BID PRN muscle spasm 07/30/23 08/10/23 History gabapentin 300 mg capsule 300 mg PO TID 07/30/23 08/10/23 History ropinirole 0.25 mg tablet 0.5 mg PO TID 07/30/23 08/10/23 History zinc gluconate 50 mg tablet 50 mg PO DAILY 07/30/23 08/10/23 History aspirin 81 mg chewable tablet 81 mg PO DAILY 08/10/23 08/10/23 History lutein 25 mg-zeaxanthin 5 mg 1 cap PO DAILY 08/10/23 08/10/23 History capsule multivitamin 1 tab PO DAILY 08/10/23 08/10/23 History rasagiline 1 mg tablet 1 mg PO DAILY 08/10/23 08/10/23 History ciprofloxacin HCl 500 mg tablet 500 mg PO BID #14 tabs 08/11/23 Rx (Cipro) Allergies Allergy/AdvReac Type Severity Reaction Status Date / Time Sulfa (Sulfonamide Allergy Unknown Verified 08/10/23 04:41 Antibiotics) Exam Narrative Exam Narrative: Psych-alert and oriented x 3. Attentive and appropriate, constitutionally normal, displays normal mood and affect per situation.? There are no obvious deficits in memory, reasoning, or intellect.? Skin-no obvious rashes, bruising, erythema noted to the patient's area of pain. Extremities- extremities are warm with minimal edema and palpable pulses. Lumbar-no significant tenderness to palpation noted in the lumbar spine and paraspinal musculature.? Pain is elicited with extension, and lateral rotation of the lumbar spine. Range of motion is slightly diminished with these motions due to pain. Facet loading maneuvers are positive bilaterally and do appear to be concordant with the patient's normal complaints of pain.? Coordination remains intact.? Gait remains non-antalgic. Assessment and Plan Assessment and Plan (1) Lumbar spondylosis: Plan 78yof who presents for assessment. failed conservative measures, as noted. imaging reviewed, as noted. given symptoms and imaging, prudent to attempt bilateral l4-5, l5-s1 medial branch block under fluoroscopic guidance with intention of proceeding to rfa. she is in agreement. meds reviewed, no changes. follow up after procedure.
== END 2023-08-20 13:15 | disposition home or self-care (01) ==
LOC: PM 13:14
PROVIDERS: PCP Family Medicine; Visit Provider Anesthesiology
DX: M47.816 Spondylosis without myelopathy or radiculopathy, lumbar region (principal)
CPT/HCPCS: G0463

== ENCOUNTER 2023-09-03 09:29 | Day surgery (SDC) | payer MEDICARE, OTHER, SELFPAY ==
--- OUTSIDE RECORDS SUMMARY | 2023-09-03 09:41 | XMS_ITS | CCD ---
Author Organization [facility] Care Team Providers Care Car Electronics Installer Name Role Phone SELF, REFERRED Unavailable Unavailable SELF, REFERRED Unavailable Unavailable BRAMOS, ATHANASIOS Unavailable Unavailable SUPA MAY Unavailable Unavailable WA Unavailable Unavailable BRAMOS, ATHANASIOS Unavailable Unavailable [place] Unavailable Unavailable SUPA MAY Unavailable Unavailable PHYSICIAN, [...] FLAQUITA ., DR MENSAH Primary Care Unavailable ZIRIVERAER, DR RAMIRO Gates Consulting Unavailable BALJEET RAO Attending Unavailable BALJEET RAO Admitting Unavailable BALJEET RAO Consulting Unavailable MALATHIY ., DR MENSAH Admitting Unavailable HOY ., DR MENSAH Attending Unavailable HOY ., DR MENSAH Consulting Unavailable HOY ., DR MENSAH Primary Care Unavailable HOY ., DR MENSAH Admitting Unavailable HOY ., DR MENSAH Attending Unavailable HOY ., DR MENSAH Consulting Unavailable FLAQUITA ., DR MENSAH Primary Care Unavailable ZIEBFESTUS, DR RAMIRO Gates Consulting Unavailable MD Kavon Sams Primary Care Provider [phone] DIXIE Reid Attending Provider Kavon Sams Primary Care Physician [phone] Elian Quigley Unavailable Unavailable Mela Espinal Admitting Unavailable Haile CASTRO Attending Unavailable [place], Ramiro Consulting Unavailable [place], Ramiro Consulting Unavailable [place], Ramiro Consulting Unavailable [place], Ramiro Consulting Unavailable [place], Ramiro Consulting Unavailable [place], Ramiro Consulting Unavailable [place], Ramiro Consulting Unavailable [place], Ramiro Consulting Unavailable [place], Ramiro Consulting Unavailable Demarco Beaver Attending Unavailable Cathie Reid S Attending Unavailable Kavon Sams Primary Care Unavailable Cathie Reid S Admitting Unavailable Cathie Reid Attending Unavailable Kavon Sams Primary Care Unavailable Cathie Reid S Admitting Unavailable Andrae HERRERA, Rafa Nath Attending Unavailable Gieditis , Rafa Nath Attending Unavailable AMRIK, MILA Referring Unavailable SHEEHAN, JIANLIN Admitting Unavailable SHEEHAN, JIANLIN Attending Unavailable SHEEHAN, JIANLIN Attending Unavailable SHEEHAN, JIANLIN Attending Unavailable AMRIK, MILA Referring Unavailable AMRIK, MILA Attending Unavailable AMRIK, MILA Attending Unavailable SHEEHAN, JIANLIN Referring Unavailable Allergies Allergy Classification Reported Allergen(s) Allergy Type Date of Onset Reaction(s) Facility (4 sources) Sulfonamides (Antibiotic); 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: [SULFA (SULFONAMIDE ANTIBIOTICS)] Drug allergy (disorder) 4 [facility] Repository (1 source) Cephalexin Drug Allergy 2 [facility] Repository (2 sources) Sulfonamides (Antibiotic); 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: [sulfa drugs] Drug allergy Unknown (qualifier value) [facility] (1 source) Unable to Assess Drug allergy (disorder) 3 [facility] Repository Medications Current Medications Medication [...] day(s), # 15 cap(s), Refills(s) 0, Pharmacy: [facility]/pharmacy #[id number], 167, cm, 06/23/23 1:52:00 EST, Height/Length Dosing, 56.3, kg, 06/23/23 1:52:00 EST, Weight Dosing Start Date: 06/23/23 Stop Date: 06/28/23 Status: Ordered ciprofloxacin 500 mg oral tablet (1 source) Quinolone Antimicrobial Start: 02-25-2020 Cipro 500 mg Tab See Instructions, Take 1 tab day prior to procedure and 1 tab day of procdure - afterwards, # 2 tab(s), Refills(s) 0, Pharmacy: [facility]/pharmacy #[id number], 167, cm, 02/10/20 14:06:00 EDT, [...] Date Documented Da te Episodic/Chronic Abdominal hernia (4 sources) Incisional hernia without obstruction or gangrene; 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: [Diaphragmatic hernia without obstruction or gangrene] Onset: 08-07-2023 Episodic Anxiety disorders (1 source) Anxiety disorder, unspecified; 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: [ANXIETY DISORDER, UNSPECIFIED] Onset: 08-11-2017 Chronic Chronic obstructive pulmonary disease and bronchiectasis (7 sources) Chronic obstructive pulmonary disease, unspecified; 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: [Chronic obstructive pulmonary disease with (acute) exacerbation] Onset: 08-11-2017 Chronic Coagulation and hemorrhagic disorders (2 sources) Spontaneous ecchymoses; 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: [Spontaneous ecchymoses] Onset: 08-22-2023 Episodic Congestive heart failure; nonhypertensive (2 sources) Unspecified [...] D deficiency, unspecified] Onset: 08-11-2017 Chronic Other circulatory disease (1 source) Personal history of transient ischemic attack (TIA), and cerebral infarction without residual deficits; 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: [Personal history of transient ischemic attack (TIA), and cerebral infarction without residual deficits] Onset: 08-14-2023 Episodic Other diseases of kidney and ureters [...] fluctuations] Onset: 06-23-2023 Chronic 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) 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; 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: [MCFP (CURRENT) USE OF ORAL HYPOGLYCEMIC DRUGS] Onset: [...] Onset: 05-24-2022 Episodic Other aftercare (2 sources) 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; 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: [CLINICAL TRAINING COORDINATOR (CURRENT) USE OF ASPIRIN] Onset: 08-11-2017 Episodic Other aftercare (1 source) Other termite control service representative (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) drug therapy; 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: [OTH [facility]FP CURRENT DRUG THERAPY] Onset: 05-22-2022 Episodic Other [...] Test Name Value Interpretation Reference Range Facility Documentationon 08-27-2023 Documentation [id number] MilenaDonato chua en A 1945 Date Provider Department Center 08/27/2023 MILA SORIA [facility] Family History Problem Relation Age of Onset Stroke Mother Stroke Brother Other Mother's Sister Coronary artery disease Mother's Sister Stroke Maternal Grandmother Family Status - Relation Status Age at Mother Brother Mother's Sister Maternal Grandmother Normal [facility] Office Visiton 08-22-2023 Follow-up visit [id number] EmeryDonato en A 1945 Date Provider Department Center 08/22/2023 Corazon-VERENA SHEEHAN [facility] SURG [place] Family History Problem Relation Age of Onset Stroke Mother Stroke Brother Other Mother's Sister Coronary artery disease Mother's Sister Stroke Maternal Grandmother Family Status - Relation Status Age at Mother Brother Mother's Sister Maternal Grandmother Level of Service:54203 [place] OFFICE/OUTPATIENT ESTABLISHED MOD MDM 30 MIN Reason for Visit and Comments: Post-op [483] - Judith is here today for a post op visit for a hiatal hernia, s/p 08/13/[address] Normal [facility] MR head/brain wo/w conon MR head/brain wo/w con [facility] [place] [address] MRI Report Signed Patient: Judith Khan MR#: [id number] 320 : 1945 Acct:[id number] Age/Sex: 78 / F ADM Date: 08/14/23 Loc: [facility] Room: Type: [facility] Attending Dr: Cathie COLIN Copies to: DIXIE [...] Guerrero Jr., D.O.08/14/2023 3:44 PM Dictation Location: [place] [address] Transcribed By: [facility] 08/14/23 1544 Dictated By: Ramsey Guerrero Jr DO 08/14/23 1536 Signed By: 08/14/23 [address] [facility] [address] ABDOMEN WO IV CONTRASTon 08-13-2023 [...] Ernie Guerin. Not Vldtd Invalid Interpretation Code [facility] Comment on above: Order Comment: With oral contrast OPNOTEon 08-13-2023 OPNOTE EGD (ESOPHAGOGASTRODUODENOSCOPY) Operative Note Date: 08/13/2023 Location: [facility] OR Name: Judith Khan, : 1945, Diagnosis Pre-op Diagnosis * Hiatal hernia [K44.9] Post-op Diagnosis * Chronic gastric ulcer without hemorrhage and without perforation [K25.7] Procedures EGD (ESOPHAGOGASTRODUODENOSCOPY) 96370 - [place] ESOPHAGOGASTRODUODENOSCOPY [facility] Surgeons * Verena Sheehan - Primary Procedure Summary Anesthesia: Monitor Anesthesia Care ASA: III Estimated Blood Loss: Minimal Total IV Fluids: 500 mL Drains: * None in log * Staff: Rubber Compounder Supervisor: Jian Kat RN Scrub Person: Eva Zambrano [...] NOTE Patient: Judith Khan : 1945 Facility: [facility] Referring/PCP: Kavon Sams MD Procedure: Esophagogastroduodenoscopy --diagnostic [...] particles Recommendations: 1. -Follow up with me. [phone] pager [phone] Normal [facility] OPNOTE EGD (ESOPHAGOGASTRODUODENOSCOPY) Operative Note Date: 08/13/2023 Location: [facility] OR Name: Judith Khan, : 1945, Diagnosis Pre-op Diagnosis * Hiatal hernia [K44.9] Post-op Diagnosis * Chronic gastric ulcer without hemorrhage and without perforation [K25.7] Procedures EGD (ESOPHAGOGASTRODUODENOSCOPY) 13886 - [place] ESOPHAGOGASTRODUODENOSCOPY [facility]AGNOSTIC Surgeons * Verena Sheehan - Primary Procedure Summary Anesthesia: Monitor Anesthesia Care ASA: III Estimated Blood Loss: Minimal Total IV Fluids: 500 mL Drains: * None in log * Staff: Rubber Compounder Supervisor: Jian Kat RN Scrub Person: Eva Zambrano [...] NOTE Patient: Judith Khan : 1945 Facility: [facility] Referring/PCP: Kavon Sams MD Procedure: Esophagogastroduodenoscopy --diagnostic [...] 1. -Follow up with me. 2. -PPIs [phone] pager [phone] [facility] POCT GLUCOSE METER UNSOLICIT ED RESULTSon 08-13-2023 Glucose [Mass/Vol] 85 mg/dL Normal 70-105 [facility] Comment on above: Order Comment: Waive d Testing in the ED is performed under the ED CLIA certificate #[id number]. Result Comment: [facility] Performed By: #### L [id number] ####[facility] ([facility]AKER)[address] [place] [address] Office Visiton 08-07-2023 Follow-up visit [id number] Donato Khan Susan 1945 F Date Provider Department Center 08/07/2023 454-VERENA SHEEHAN [facility] SURG Second Fl Family History Problem Relation Age of Onset Stroke Mother Stroke Brother Other Mother's Sister Coronary artery disease Mother's Sister Stroke Maternal Grandmother Family Status - Relation Status Age at Mother Brother Mother's Sister Maternal Grandmother Level of Service:65877 [place] OFFICE/OUTPATIENT NEW LOW MDM 30 MINUTES Reason for Visit and Comments: New Patient [632] - Judith is here as a new patient for hiatal hernia, s/p ecko Normal [facility] C Urineon 07-18-2023 Bacteria identified Cx Nom [...] test was performed at: [facility], [address] [place] [address], [phone]- , , Normal [facility] Comment on above: Performed By: #### 2 [id number], [id number] #### [facility] Laboratory [address] [place] [address] BMPon 07-16-2023 Anion gap [Moles/Vol] 14 mmol/L Normal 6-16 [facility] Comment on above: Performed By: #### 2 [id number], [id number] #### [facility] [address] [place] [address] BUN/Creat Ratio 22 No Units High 10-20 [facility] Comment on above: Performed By: #### 2 [id number], [id number] #### [facility] [address] [place] [address]172 Calcium [Mass/Vol] 11.6 mg/dL High 8.9-11.1 [facility] Comment on above: Performed By: #### 2 135572, [id number] #### [facility] [address] [place] [address]34 Chloride [Moles/Vol] 105 mmol/L Normal 101-111 [facility] Comment on above: Performed By: #### 2 583786, [id number] #### [facility] [address] [place] [address] 59366 CO2 [Moles/Vol] 26 mmol/L Normal 21-31 [facility] Comment on above: Performed By: #### 2 153354, [id number] #### [facility] [address] [place] [address] Creatinine [Mass/Vol] 0.9 mg/dL Normal 0.5-1.3 [facility] Comment on above: Performed By: #### 2 980817, [id number] #### [facility] [address] [place] [address] Glucose [Mass/Vol] 87 mg/dL Normal 55-199 [facility] Comment on above: Performed By: #### 2 710909, [id number] #### [facility] [address] [place] [address] Potassium [Moles/Vol] 4.0 mmol/L Normal 3.5-5.3 [facility] Comment on above: Performed By: #### 2 466518, [id number] #### [facility] [address] [place] [address] Sodium [Moles/Vol] 141 mmol/L Normal 135-145 [facility] Comment on above: Performed By: #### 2 867035, [id number] #### [facility] [address] [place] [address] Urea nitrogen [Mass/Vol] 20 mg/dL Normal 5-21 [facility] Comment on above: Performed By: #### 2 262982, [id number] #### [facility] [address] [place] [address] CBC w/ Auto Diffon 4 Basophil Absolute 0.1 E9/L Normal 0.0-0.2 [facility] Comment on above: Performed By: #### 2 282226, [id number] #### [facility] [address] [place] [address] Basophils/100 WBC (Bld) 1.1 % Normal 0.0-2.0 [facility] Comment on above: Performed By: #### 2 676954, [id number] #### [facility] [address] [place] [address] Eos Absolute 0.2 E9/L Normal 0.0-0.5 [facility] Comment on above: Performed By: #### 2 747214, [id number] #### [facility] [address] [place] [address] Eosinophils/100 WBC (Bld) 1.7 % Normal 0.0-8.0 [facility] Comment on above: Performed By: #### 2 056843, [id number] #### [facility] [address] [place] [address] Erythrocyte distribution width (RBC) [Ratio] 13.5 % Normal 10.9-14.2 [facility] Comment on above: Performed By: #### 2 040879, [id number] #### [facility] [address] [place] [address] Hematocrit (Bld) [Volume fraction] 43.0 % Normal 34.0-46.0 [facility] Comment on above: Performed By: #### 2 134902, [id number] #### [facility] [address] [place] [address] Hemoglobin (Bld) [Mass/Vol] 14.3 g/dL Normal 12.0-16.0 [facility] Comment on above: Performed By: #### 2 713731, [id number] #### [facility] [address] [place] [address] Lymph Absolute 3.4 E9/L Normal 1.0-4.0 [facility] Comment on above: Performed By: #### 2 097313, [id number] #### [facility] [address] [place] [address] Lymphocytes/100 WBC (Bld) 38.0 % Normal 14.0-50.0 [facility] Comment on above: Performed By: #### 2 090563, [id number] #### [facility] [address] [place] [address] MCH (RBC) [Entitic mass] 30.9 pg Normal 27.0-34.0 [facility] Comment on above: Performed By: #### 2 479601, [id number] #### [facility] [address] [place] [address] MCHC (RBC) [Mass/Vol] 33.0 g/dL Normal 31.4-36.0 [facility] Comment on above: Performed By: #### 2 611133, [id number] #### [facility] [address] [place] [address] MCV (RBC) [Entitic vol] 93.5 fL Normal 80.0-100.0 [facility] Comment on above: Performed By: #### 2 072924, [id number] #### [facility] [address] [place] [address] Wake Absolute 1.2 E9/L High 0.2-1.0 [facility] Comment on above: Performed By: #### 2 561325, [id number] #### [facility] [address] [place] [address] Monocytes/100 WBC (Bld) 12.9 % Normal 4.0-14.0 [facility] Comment on above: Performed By: #### 2 066069, [id number] #### [facility] [address] [place] [address] Neutro Absolute 4.2 E9/L Normal 2.0-7.5 [facility] Comment on above: Performed By: #### 2 238724, [id number] #### [facility] [address] [place] [address] Neutro Auto 46.3 % Normal 36.0-75.0 [facility] Comment on above: Performed By: #### 2 691104, [id number] #### [facility] [address] [place] [address] Platelet 325.0 E9/L Normal 150.0-500. 0 [facility] Comment on above: Performed By: #### 2 966616, [id number] #### [facility] [address] [place] [address] Platelet mean volume (Bld) [Entitic vol] 9.3 fL Normal 6.4-10.8 [facility] Comment on above: Performed By: #### 2 738925, [id number] #### [facility] [address] [place] [address] RBC 4.6 E12/L Normal 4.3-5.9 [facility] Comment on above: Performed By: #### 2 697970, [id number] #### [facility] [address] [place] [address] WBC 9.0 E9/L Normal 4.0-11.0 [facility] Comment on above: Performed By: #### 2 817137, [id number] #### [facility] [address] [place] [address] Consent for Treatmenton Consent for Treatment [id number] Normal [facility] Discharge Instructionson Discharge Instructions [id number] Normal [facility] ED Clinical Summaryon 2023 ED Clinical Summary (Inserted Image. Jenni ble to display) [address] [address] ED Clinical Summary Person Information Name: JUDITH KHAN Alecia/[facility] Age: 78 Years : 1945 Sex: Female Language: Uzbek PCP: Kavon Sams MD Marital Status: Visit [...] 07/16/2023 15:44:31 07/16/2023 15:44:31 07/16/2023 15:44:31 ADDRESS: [address] [place] [id number] PHYS DOC NOTES: MEDICAL INFORMATION: Prescriptions Given: [...] up: With: Address: When: Kavon Sams [address] [facility], [place] [address] Business (1) In 3 days 07/19/2023 DIAGNOSIS: Weakness Normal [facility] ED Note-Physicianon 07-16-19 ED Note-Physician Basic Information [...] Information Kavon Sams In 3 days 07/19/2023 EST [address] [facility] [place] [address] [place] [address]- Business (1) Additional Instructions: Patient Education Weakness [...] made to ensure accuracy, however, inadvertently computerized court bailiff or sheriff mistakes may be present. Appropriate healthcare PPE [...] 11:50:00) MC (more content not included)... Normal [facility] Comment on above: Result Comment: Elec tronically [...] Consider working with a physical therapist or link trainer maintenance man who can develop an exercise plan to help you gain muscle strength. General instructions ? Take jftt-[id number] and prescription medicines only as told by [...] provider. Document Revised: 04/30/2022 Document Reviewed: 04/30/2022 [employer] Patient Education ? 2022 [employer]itant. Normal [facility] ED Patient Summaryon 024 ED Patient Summary (Inserted Image. Jenni ble to display) [place] [id number] Patient Discharge Instructions Person Information Name: JUDITH KHAN Age: 78 Years Arrival Date: 07/16/2023 11:33:16 Discharge Diagnosis: Weakness Primary Care Physician: Kavon Sams MD Provider Information Primary Provider: Sd DO, Demarco M. Advanced Canning Machine Operator:Leighton Fernandes PA-C The exam and treatment you received in the Emergency Department were for an urgent problem and are not intended as complete care. It is important that you follow up with a doctor, nurse practitioner, or physician?s diploma medical assistant for ongoing care. If your symptoms [...] Follow-up Instructions: With: Address: When: Kavon Sams [facility] [facility], [address] [place] [id number] Business (1) In 3 days 07/19/2023 In the event that this physician does not participate in your insurance network, please consult with your insurance company to find a nearby participating provider. Patient Education Materials: Weakness A MESSAGE TO ALL PATIENTS REGARDING OPIOIDS PRESCRIPTION OPIOIDS: WHAT YOU NEED TO KNOW Prescription opioids can be used to help relieve tmavsdip-sy-ofuytx pain and are often prescribed following a [...] be struggling with addiction, tell your health medicare sales representative and ask for guidance or call [employer]?S National Helpline at 8-467-093-HELP. v Source: [place] Department of Health a (more content not included)... Normal [facility] Troponin 0 Hr.on 07-16-2023 Troponin 21.20 pg/mL Normal 10.10-27.1 0 [facility] Comment on above: Result Comment: The 95% CI (Confidence Interval) PPV (Positive Predictive Value) for myocardial infarction in females is 38 pg/mL, in males 51 pg/mL. The results should be used in conjunction with clinical conditions of myocardial infarction. (Access High Sensitivity Troponin I Instructions For Use, [employer], January 2018) Performed By: #### 2 [id number], [id number] #### [facility] [address] [place] [address] Troponin 3 Hr.on 07-16-2023 Troponin 19.60 pg/mL Normal 10.10-27.1 0 [facility] Comment on above: Result Comment: The 95% CI (Confidence Interval) PPV (Positive Predictive Value) for myocardial infarction in females is 38 pg/mL, in males 51 pg/mL. The results should be used in conjunction with clinical conditions of myocardial infarction. (Access High Sensitivity Troponin I Instructions For Use, [employer], January 2018) Performed By: #### 1 [id number] #### [facility] [address] [place] [address] UA With Cult Reflexon 2023 Bacteria LM Ql (Urine sed) TRACE Normal Trace [facility] Comment on above: Performed By: #### 2 405626, [id number] #### [facility] [address] [place] [address] Bilirubin Ql (U) Negative Normal Negative [facility] Comment on above: Performed By: #### 2 278159, [id number] #### [facility] [address] [place] [address] Clarity (U) CLEAR Normal Clear [facility] Comment on above: Performed By: #### 2 638027, [id number] #### [facility] [address] [place] [address] Color (U) YELLOW Normal Yellow [facility] Comment on above: Performed By: #### 2 [id number], [id number] #### [facility] Laboratory [address] [place] [address] Crystals LM Ql (Urine sed) Present Normal [facility] Comment on above: Performed By: #### 2 122519, [id number] #### [facility] Laboratory [address] [place] [address] Epithelial cells.squamous LM.HPF (Urine sed) [#/Area] 0-2 Normal 0-2 [facility] Comment on above: Performed By: #### 2 064403, [id number] #### [facility] Laboratory [address] [place] [address] Glucose Test strip (U) [Mass/Vol] Negative Normal Negative [facility] Comment on above: Performed By: #### 2 444578, [id number] #### [facility] Laboratory [address] [place] [address] Hemoglobin Ql (U) Negative Normal Negative [facility] Comment on above: Performed By: #### 2 806854, [id number] #### [facility] Laboratory [address] [place] [address] Ketones (U) [Mass/Vol] Negative Normal Negative [facility] Comment on above: Performed By: #### 2 030007, [id number] #### [facility] Laboratory [address] [place] [address] Gallina.plasma/Lithi um.RBC (Bld) [Mass ratio] 0-3 Normal 0-3 [facility] Comment on above: Performed By: #### 2 019476, [id number] #### [facility] Laboratory [address] [place] [address] Nitrite Ql (U) Negative Normal Negative [facility] Comment on above: Performed By: #### 2 676081, [id number] #### [facility] Laboratory [address] [place] [address] pH (U) 7.0 [pH] Invalid Interpretation Code 5.0-9.0 [facility] Comment on above: Performed By: #### 2 850641, [id number] #### [facility] Laboratory [address] [place] [address] Protein (U) [Mass/Vol] Negative Normal Negative [facility] Comment on above: Performed By: #### 2 519990, [id number] #### [facility] Laboratory [address] [place] [address] Specific gravity (U) [Rel density] 1.015 Invalid Interpretation Code 1.005-1.03 0 [facility] Comment on above: Performed By: #### 2 805463, [id number] #### [facility] Laboratory [address] [place] [address] Type of Urine collection method Clean Catch Normal [facility] Comment on above: Performed By: #### 2 985103, [id number] #### [facility] Laboratory [address] [place] [address] Urobilinogen Qn (U) 0.2 {Phoebe'U}/dL Normal 0.0-1.0 [facility] Comment on above: Performed By: #### 2 948339, [id number] #### [facility] Laboratory [address] [place] [address] WBC Auto Ql (U) 1+ Abnormal Negative [facility] Comment on above: Performed By: #### 2 129854, [id number] #### [facility] Laboratory [address] [place] [id number] WBC LM.HPF (Urine sed) [#/Area] 0-5 Normal 0-5 [facility] Comment on above: Performed By: #### 2 274575, [id number] #### [facility] Laboratory [address] [place] [address] eGFRon 07-16-2023 eGFR 66 mL/min/1.73 m2 Normal >=59 [facility] Comment on above: Order Comment: Order added by Discern Expert. Performed By: #### 2 302494, [id number] #### [facility] Laboratory [address] [place] [id number] Office Visiton 07-06-2023 Follow-up visit [id number] Donato Khan 1945 F Date Provider Department Center 07/06/2023 MIL[facility] SORIA [facility] Family History Problem Relation Age of Onset Stroke Mother Stroke Brother Other Mother's Sister Coronary artery disease Mother's Sister Stroke Maternal Grandmother Family Status - Relation Status Age at Mother Brother Mother's Sister Maternal Grandmother Level of Service:07[address] [place] OFFICE/OUTPATIENT ESTABLISHED MOD MDM 30 MIN Normal [facility] C Urineon 06-25-2023 Bacteria identified [...] test was performed at: [facility], [address] [place] [address], [address]- , [place], Normal [facility] Comment on above: Performed By: #### 1 [id number], [id number] #### [facility] Laboratory [address] [place] [address] UA With Cult Reflexon 2023 UA Spec Desc Catheter Normal [facility] Comment on above: Result Comment: Mini cath specimen Performed By: #### 1 [id number], [id number] #### [facility] Laboratory [address] [place] [address] Discharge Instructionson Discharge Instructions [id number]#[id number] Normal [facility] Message from Medicareon 06-11 Message from Medicare [id number]#1.00TIFF Normal [facility] Auto Diffon 06-23-2023 Basophils/100 WBC (Bld) 0.4 % Normal 0.0-2.0 [facility] Comment on above: Order Comment: Order Added by Discern Expert. Performed By: #### 2 319056, [id number] #### [facility] Laboratory [address] [place] [address] Basophils/Leukocytes Auto (Bld) [Pure # fraction] 0.1 E9/L Normal 0.0-0.2 [facility] Comment on above: Order Comment: Order Added by Discern Expert. Performed By: #### 2 401336, [id number] #### [facility] Laboratory [address] [place] [address] Eosinophils/100 WBC (Bld) 0.8 % Normal 0.0-8.0 [facility] Comment on above: Order Comment: Order Added by Discern Expert. Performed By: #### 2 951737, [id number] #### [facility] Laboratory [address] [place] [address] Eosinophils/Leukocyt es Auto (Bld) [Pure # fraction] 0.1 E9/L Normal 0.0-0.5 [facility] Comment on above: Order Comment: Order Added by Discern Expert. Performed By: #### 2 425611, [id number] #### [facility] Laboratory [address] [place] [address] Lymphocytes/100 WBC (Bld) 15.1 % Normal 14.0-50.0 [facility] Comment on above: Order Comment: Order Added by Discern Expert. Performed By: #### 2 063190, [id number] #### [facility] Laboratory [address] [place] [address] Lymphocytes/Leukocyt es Auto (Bld) [Pure # fraction] 2.2 E9/L Normal 1.0-4.0 [facility] Comment on above: Order Comment: Order Added by Discern Expert. Performed By: #### 2 522258, [id number] #### [facility] Laboratory [address] [place] [address] Monocytes/100 WBC (Bld) 11.3 % Normal 4.0-14.0 [facility] Comment on above: Order Comment: Order Added by Discern Expert. Performed By: #### 2 903260, [id number] #### [facility] Laboratory [address] [place] [address] Monocytes/Leukocytes Auto (Bld) [Pure # fraction] 1.6 E9/L High 0.2-1.0 [facility] Comment on above: Order Comment: Order Added by Discern Expert. Performed By: #### 2 768208, [id number] #### [facility] Laboratory [address] [place] [address] Neutrophils/100 WBC (Bld) 72.4 % Normal 36.0-75.0 [facility] Comment on above: Order Comment: Order Added by Discern Expert. Performed By: #### 2 393616, [id number] #### [facility] Laboratory [address] [place] [address] Neutrophils/Leukocyt es Auto (Bld) [Pure # fraction] 10.5 E9/L High 2.0-7.5 [facility] Comment on above: Order Comment: Order Added by Discern Expert. Performed By: #### 2 142539, [id number] #### [facility] Laboratory [address] [place] [address] BMPon 06-23-2023 Anion gap [Moles/Vol] 13 mmol/L Normal 6-16 [facility] Comment on above: Performed By: #### 2 205695, [id number] #### [facility] Laboratory [address] [place] [address] BUN/Creat Ratio 20 No Units Normal 10-20 [facility] Comment on above: Performed By: #### 2 534295, [id number] #### [facility] Laboratory [address] [place] [address] Calcium [Mass/Vol] 10.7 mg/dL Normal 8.9-11.1 [facility] Comment on above: Performed By: #### 2 861981, [id number] #### [facility] Laboratory [address] [place] [address] Chloride [Moles/Vol] 103 mmol/L Normal 101-111 [facility] Comment on above: Performed By: #### 2 379395, [id number] #### [facility] Laboratory [address] [place] [address] CO2 [Moles/Vol] 25 mmol/L Normal 21-31 [facility] Comment on above: Performed By: #### 2 608900, [id number] #### [facility] Laboratory [address] [place] [address] Creatinine [Mass/Vol] 0.9 mg/dL Normal 0.5-1.3 [facility] Comment on above: Performed By: #### 2 250022, [id number] #### [facility] Laboratory [address] [place] [address] Glucose [Mass/Vol] 98 mg/dL Normal 55-199 [facility] Comment on above: Performed By: #### 2 290686, [id number] #### [facility] Laboratory [address] [place] [address] Potassium [Moles/Vol] 3.5 mmol/L Normal 3.5-5.3 [facility] Comment on above: Performed By: #### 2 930422, [id number] #### [facility] Laboratory [address] [place] [address] Sodium [Moles/Vol] 137 mmol/L Normal 135-145 [facility] Comment on above: Performed By: #### 2 927345, [id number] #### [facility] Laboratory [address] [place] [address] Urea nitrogen [Mass/Vol] 18 mg/dL Normal 5-21 [facility] Comment on above: Performed By: #### 2 333223, [id number] #### [facility] Laboratory [address] [place] [address] CBC w/ Auto Diffon 4 Erythrocyte distribution width (RBC) [Ratio] 13.6 % Normal 10.9-14.2 [facility] Comment on above: Performed By: #### 2 788164, [id number] #### [facility] Laboratory [address] [place] [address] Hematocrit (Bld) [Volume fraction] 40.9 % Normal 34.0-46.0 [facility] Comment on above: Performed By: #### 2 455073, [id number] #### [facility] Laboratory [address] [place] [address] Hemoglobin (Bld) [Mass/Vol] 13.7 g/dL Normal 12.0-16.0 [facility] Comment on above: Performed By: #### 2 873651, [id number] #### [facility] Laboratory [address] [place] [address] MCH (RBC) [Entitic mass] 30.8 pg Normal 27.0-34.0 [facility] Comment on above: Performed By: #### 2 818463, [id number] #### [facility] Laboratory [address] [place] [address] MCHC (RBC) [Mass/Vol] 33.4 g/dL Normal 31.4-36.0 [facility] Comment on above: Performed By: #### 2 486871, [id number] #### [facility] Laboratory [address] [place] [address] MCV (RBC) [Entitic vol] 92.2 fL Normal 80.0-100.0 [facility] Comment on above: Performed By: #### 2 583701, [id number] #### [facility] Laboratory [address] [place] [address] Platelet mean volume (Bld) [Entitic vol] 9.9 fL Normal 6.4-10.8 [facility] Comment on above: Performed By: #### 2 648289, [id number] #### [facility] Laboratory [address] [place] [address] Platelets (Bld) [#/Vol] 301.0 E9/L Normal 150.0-500. 0 [facility] Comment on above: Performed By: #### 2 522939, [id number] #### [facility] Laboratory [address] [place] [address] RBC (Bld) [#/Vol] 4.4 E12/L Normal 4.3-5.9 [facility] Comment on above: Performed By: #### 2 064739, [id number] #### [facility] Laboratory [address] [place] [address] WBC corrected for nucl RBC Auto (Bld) [#/Vol] 14.5 E9/L High 4.0-11.0 [facility] Comment on above: Performed By: #### 2 723660, [id number] #### [facility] Laboratory [address] [place] [address] CHEMISTRYOrdered By: SYSTEM SYSTEM on 06-23-2023 Troponin [...] conjunction with clinical conditions of myocardial infarction. (OpTier High Sensitivity Troponin I Instructions For Use, [place], January 2018) Troponin 183.20 pg/mL Invalid Interpretation [...] conjunction with clinical conditions of myocardial infarction. (OpTier High Sensitivity Troponin I Instructions For Use, [place], January 2018) Troponin 116.80 pg/mL Invalid Interpretation [...] conjunction with clinical conditions of myocardial infarction. (OpTier High Sensitivity Troponin I Instructions For Use, [place], January 2018) Lactic Acid Lvl 1.1 mmol/L [...] 96 mg/dL Normal 55 - 99 mg/dL [facility] POC Subsection Comment on above: Result Comment: Bonnie jamil RN/MD POC Device SN [id number] 1 Invalid Interpretation Code [facility] POC Subsection POC User ID [id number] 1 Invalid Interpretation Code [facility] POC Subsection POC Username JOSH GERONIMO Invalid Interpretation Code [facility] POC Subsection COAGULATIONOrdered By: Hoang Chris on 06-23-2023 aPTT Coag (PPP) [Time] 30.4 s Normal 25.1 - 36.5 second(s) [facility] Auto Coag Comment on above: Interpretive Data: [...] the same coagulation reagent and instrumentation as [facility]. Currently there are no coagulation studies available worldwide for children to 14 days, and no normal ranges. Heparin therapeutic range (represented by Anti-Factor Xa activity of 0.2 - 0.4 U/mL) corresponds to PTT of 56.6 - 109.0 sec. INR Coag (PPP) [Relative time] 1.0 {INR} Invalid Interpretation Code [facility] Auto Coag Comment on above: Interpretive Data: I NR results are specifically intended to assess patients stabilized on long-term Anticoagulation therapy suggested INR s Less Intensive Anticoagulation 2.0 3.0 Conventional Range 3.0 4.5 PT Coag (PPP) [Time] 11.7 s Normal 9.4 - 1 2.5 second(s) [facility] Auto Coag Comment on above: Interpretive Data: [...] the same coagulation reagent and instrumentation as [facility]. Currently there are no coagulation studies available [...] Technologist: YOLY Technical Comments Contrast: None Normal [facility] Capillary Glucose POCon 06-11 Glucose [Mass/Vol] 96 mg/dL Normal 55-99 [facility] Comment on above: Result Comment: Bonnie jamil RN/MD Performed By: #### 2 [id number] #### [facility] Laboratory [address] [place] [address] Consent for Treatmenton 06-11 Consent for Treatment [id number] Normal [facility] Discharge Note-Nursingon Discharge Note-Nursing JUDITH [...] Doctor Event Name Event Result [facility] Up Appointments after Discharge Follow Up with Dani HERRERA, JOANNA Kauffman When: Within 1 to 2 weeks [facility] [place] [address]- Medications What How Much When Instructions Next [...] Tablets By Mouth Every day 06/24 @ AM Unchanged Non-Formulary Medication (Misc Medication) calcium [...] 13 mEq/L (06/23/23 01:55:00) MPV: 9.9 fL (06/23/23:55:00) Calcium Lvl: 10.7 mg/dL (06/23/23 01:55:00) Allergies [...] days a (more content not included)... Normal [facility] ED Clinical Summaryon 2023 ED Clinical Summary (Inserted Image. Jenni ble to display) [place] [id number] ED Clinical Summary Person Information Name: JUDITH KHAN Alecia/[facility] Age: 78 Years : 1945 Sex: Female Language: Uzbek PCP: Kavon Sams MD Marital Status: Visit [...] 04:30:21 Meds Admin Request 06/23/2023 04:30:49 ADDRESS: [address] [place] [id number] [facility] DOC NOTES: MEDICAL INFORMATION: Prescriptions Given: Medications [...] 4:Elevated troponin; 5:Hypertension; 6:High cholesterol; 7:Parkinsons Normal [facility] ED Note-Physicianon 06-23-19 ED Note-Physician Basic Information [...] both correctly = 0 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 Normal [facility] Comment on above: Result Comment: Elec tronically Signed By: Thea Stacy, Augie Charlton\.andreia\Date and Time Signed: 06/23/23 04:21 EST ED Patient Education Noteon 06-23-2023 ED Patient Education Note Normal [facility] ED Patient Summaryon 024 ED Patient Summary (Inserted Image. Jenni ble to display) [place] [id number] Patient Discharge Instructions Person Information Name: JUDITH KHAN Age: 78 Years Arrival Date: 06/23/2023 01:35:17 Discharge Diagnosis: 1:Right sided weakness; 2:Hypoxia; 3:Urinary tract infection; 4:Elevated troponin; 5:Hypertension; 6:High cholesterol; 7:Parkinsons Primary Care Physician: Kavon Sams MD Provider Information Primary Provider: Augie Sidhu M.D. Advanced Canning Machine Operator:None The exam and treatment you received in the Emergency Department were for an urgent problem and are not intended as complete care. It is important that you follow up with a doctor, nurse practitioner, or physician?s diploma medical assistant for ongoing care. If your symptoms [...] opioids can be used to help relieve pbuyvqvv-ap-pblvow pain and are often prescribed following a [...] be struggling with addiction, tell your health medicare sales representative and ask for guidance or call [employer]?S National Helpline at 8-191-403-ZMVM. v Source: [place] Department of Health and Human Services/Center for Disease (more content not included)... Normal [facility] HEMATOLOGYOrdered By: SYSTEM SYSTEM on 06-23-2023 Basophils/100 [...] 4.4 E12/L Normal 4.3 - 5.9 E12/L [facility] HemeAutoSS WBC corrected for nucl RBC Auto (Bld) [#/Vol] 14.5 E9/L High 4.0 - 11.0 E9/L [facility] HemeAutoSS Hep Func Panelon 06-23-2023 Albumin [Mass/Vol] 4.1 g/dL Normal 3.3-5.0 [facility] Comment on above: Performed By: #### 2 [id number], [id number] #### [facility] Laboratory [address] [place] [address] Albumin/Globulin [Mass ratio] 1.7 {ratio} Normal 1.1-2.2 [facility] Comment on above: Performed By: #### 2 879982, [id number] #### [facility] Laboratory [address] [place] [address] Alk Phos 80 Int._Unit/L Normal 21-98 [facility] Comment on above: Performed By: #### 2 227488, [id number] #### [facility] Laboratory [address] [place] [address] ALT 10 Int._Unit/L Normal 6-46 [facility] Comment on above: Performed By: #### 2 052787, [id number] #### [facility] Laboratory [address] [place] [address] AST 16 Int._Unit/L Normal 5-43 [facility] Comment on above: Performed By: #### 2 604301, [id number] #### [facility] Laboratory [address] [place] [address] Bili Direct 0.1 mg/dL Normal 0.0-0.4 [facility] Comment on above: Performed By: #### 2 828217, [id number] #### [facility] Laboratory [address] [place] [address] Bili Indirect 0.5 mg/dL Normal 0.1-0.9 [facility] Comment on above: Performed By: #### 2 599785, [id number] #### [facility] Laboratory [address] [place] [id number] Bili Total 0.6 mg/dL Normal 0.0-1.1 [facility] Comment on above: Performed By: #### 2 350081, [id number] #### [facility] Laboratory [address] [place] [address] Globulin (S) [Mass/Vol] 2.4 g/dL Normal 1.4-4.0 [facility] Comment on above: Performed By: #### 2 971359, [id number] #### [facility] Laboratory [address] [place] [address] Protein [Mass/Vol] 6.5 g/dL Normal 6.0-7.8 [facility] Comment on above: Performed By: #### 2 206428, [id number] #### [facility] Laboratory [address] [place] [address] Interdisciplinary Note - Bobby n 06-23-2023 Interdisciplinary [...] Recommend Out-pt. OT eval. for Parkinson's. Normal [facility] Interdisciplinary Note - Spe ech Languageon 06-23-2023 [...] further ST needs at this time. Normal [facility] Lactic Acidon 06-23-2023 Lactic Acid Lvl 1.1 mmol/L Normal 0.5-2.2 [facility] [facility] Comment on above: Performed By: #### 2 [id number], [id number] #### [facility] Laboratory [address] [place] [address] MICRO OTHER TESTSOrdered By: Hoang Chris on 06-23-2023 Rapid COV Int NEG Ctl [place] (06/23/23 2:12 AM) Normal [facility] Man Sero Rapid COV Int POS Ctl Pass (06/23/23 2:12 AM) Normal [facility] Sero SARS-CoV+SARS-CoV-2 (COVID-19) Ag IA.rapid Ql (Resp) Not Detected 11 (06/23/23 2:12 AM) Normal Not Detected [facility] Sero Comment on above: Interpretive Data: Bob melendez CANDDiitor System for Rapid Detection of SARS-CoV-2 is [...] 06-23-2023 Magnesium [Mass/Vol] 1.8 mg/dL Normal 1.3-2.4 [facility] Comment on above: Performed By: #### 2 [id number], [id number] #### [facility] Laboratory [address] [place] [address] Message from Medicareon 06-11 Message from Medicare [id number]#1.00TIFF Normal [facility] Monitor Recordon 06-23-2023 Monitor Record [id number]#1.00TIFF Normal [facility] Monitor Record [id number]#1.00TIFF Normal [facility] Monitor Record [id number]#1.00TIFF Normal [facility] Monitor Record [id number]#1.00TIFF Normal [facility] PT & PTTon 06-23-2023 aPTT Coag (PPP) [Time] 30.4 second(s) Normal 25.1-36.5 [facility] Comment on above: Result Comment: Para meter [...] the same coagulation reagent and instrumentation as [facility]. Currently there are no coagulation studies available worldwide for children to 14 days, and no normal ranges. Heparin therapeutic range (represented by Anti-Factor Xa activity of 0.2 - 0.4 U/mL) corresponds to PTT of 56.6 - 109.0 sec. Performed By: #### 2 [id number], [id number] #### [facility] Laboratory [address] [place] [address] INR Coag (PPP) [Relative time] 1.0 {INR} Invalid Interpretation Code [facility] Comment on above: Result Comment: INR results are specifically intended to assess patients stabilized on long-term Anticoagulation therapy suggested INR?s ?Less Intensive Anticoagulation? 2.0 ? 3.0 Conventional Range 3.0 ? 4.5 Performed By: #### 2 [id number], [id number] #### [facility] Laboratory [address] [place] [address] PT Coag (PPP) [Time] 11.7 second(s) Normal 9.4-12.5 [facility] Comment on above: Result Comment: 15 d [...] the same coagulation reagent and instrumentation as [facility]. Currently there are no coagulation studies available worldwide for children to 14 days, and no normal ranges. Performed By: #### 2 [id number], [id number] #### [facility] Laboratory [address] [place] [address] Patient Education - Texton 0 06-23-2023 Patient [...] about working with a physical therapist or link trainer maintenance man to help you get stronger. General instructions ? Take cytn-fqn-zevqtkt and prescription medicines only as told by [...] provider. Document Revised: 04/30/2022 Document Reviewed: 04/30/2022 [employer] Patient Education ? 2022 [employer]. Obstetrics and Gynecology Urinary Tract Infection, Adult [...] (sexually transmitted (more content not included)... Normal [facility] Pre-Arrival Noteon Pre-Arrival Note Pre-Arrival Summary Name: , blaine Current Date: 06/23/2023 01:37:08 EST Gender: Date of : Age: Pre-Arrival Type: EMS ETA: 06/23/2023 01:53:00 EST Primary Care Physician: Presenting Problem: possible stroke Pre-Arrival User: Tejal Gold RN Referring Source: Location: [place] Completion Date/Time: 06/23/2023 01:23:00 [facility] Emergency Department Pre-Hospital Report Form Vital Signs: Pre-Hospital Report: Treatment in Route: Response to Treatment: Misc. Issues: Normal [facility] RAD - Preliminary Cat Scan R eporton 06-23-2023 RAD - Preliminary Cat Scan Report [id number]#1.00TIFF Normal [facility] Rapid COVID Antigen (MC)on 06-23-2023 Rapid COV Int NEG Ctl Pass [place] Comment on above: Performed By: #### 2 [id number], [id number] #### [facility] Laboratory [address] [place] [address] Rapid COV Int POS Ctl Pass Normal [facility] Comment on above: Performed By: #### 2 [id number], [id number] #### [facility] Laboratory [address] [place] [address] SARS-CoV+SARS-CoV-2 (COVID-19) Ag IA.rapid Ql (Resp) Not detected Normal Not Detected [facility] Comment on above: Result Comment: The Birthday Gorilla? System for Rapid Detection of SARS-CoV-2 is [...] For in vitro diagnostic use. In the [facility], only for use under an Emergency Use [...] other viruses or pathogens; and, in the [facility], this test is only authorized for the duration of the declaration that circumstances exist justifying the authorization of emergency use of in vitro diagnostics for detection and/or diagnosis of the virus that causes COVID-19 under Section 564(b)(1) of the Act, 21 U.S.C. ? 360bbb-3(b)(1), unless the authorization is terminated or revoked sooner. Performed By: #### 2 [id number], [id number] #### [facility] Laboratory [address] [place] [address] TSH With T4fr Reflexon 06-23 TSH Qn 0.68 m[IU]/L Normal 0.34-5.60 [facility] Comment on above: Performed By: #### 2 [id number], [id number] #### [facility] Laboratory [address] [place] [address] Troponin 0 Hr.on 06-23-2023 Troponin 42.70 pg/mL Abnormal 10.10-27.1 0 [facility] Comment on above: Result Comment: Crit ical [...] High Sensitivity Troponin I Instructions For Use, [employer], January 2018) Performed By: #### 2 [id number], [id number] #### [facility] Laboratory [address] [place] [address] Troponin 3 Hr.on 06-23-2023 Troponin 116.80 pg/mL Abnormal 10.10-27.1 0 [facility] Comment on above: Result Comment: Crit ical [...] High Sensitivity Troponin I Instructions For Use, [employer], January 2018) Performed By: #### 1 [id number] #### [facility] Laboratory [address] [place] [address] Troponin 6 Hr.on 06-23-2023 Troponin 183.20 pg/mL Abnormal 10.10-27.1 0 [facility] Comment on above: Result Comment: Crit ical Result Verified by Previous Result Critical Result I_TnIHS:183.2 Called to and read back by: TATIANA MUNSON at: 06/23/2023 09:12:46 by:SYDNI The 95% CI (Confidence Interval) PPV (Positive Predictive Value) for myocardial infarction in females is 38 pg/mL, in males 51 pg/mL. The results should be used in conjunction with clinical conditions of myocardial infarction. (OpTier High Sensitivity Troponin I Instructions For Use, [employer], January 2018) Performed By: #### 1 [id number] #### [facility] [address] [place] [address] Troponin 9 Hr.on 06-23-2023 Troponin 187.00 pg/mL Abnormal 10.10-27.1 0 [facility] Comment on above: Result Comment: Crit ical Result Verified by Previous Result Critical Result I_TnIHS:187.0 Called to and read back by: ANGEL RESTREPO at: 06/23/2023 12:10:53 by:SYDNI The 95% CI (Confidence Interval) PPV (Positive Predictive Value) for myocardial infarction in females is 38 pg/mL, in males 51 pg/mL. The results should be used in conjunction with clinical conditions of myocardial infarction. (OpTier High Sensitivity Troponin I Instructions For Use, [employer], January 2018) Performed By: #### 1 [id number] ####[facility] [address] [place] [address] UA With Cult Reflexon 2023 Bacteria LM Ql (Urine sed) 1+ /HPF Abnormal Trace [facility] Comment on above: Performed By: #### 1 [id number], [id number] #### [facility] Laboratory [address] [place] [address] Bilirubin Ql (U) Negative Normal Negative [facility] Comment on above: Performed By: #### 1 [id number], [id number] #### [facility] Laboratory [address] [place] [address] Clarity (U) SL CLOUDY Abnormal Clear [facility] Comment on above: Performed By: #### 1 [id number], [id number] #### [facility] Laboratory [address] [place] [address] Color (U) YELLOW Normal Yellow [facility] Comment on above: Performed By: #### 1 [id number], [id number] #### [facility] Laboratory [address] [place] [address] Epithelial cells.squamous LM.HPF (Urine sed) [#/Area] 0-2 Normal 0-2 [facility] Comment on above: Performed By: #### 1 [id number], [id number] #### [facility] Laboratory [address] [place] [address] Glucose Test strip (U) [Mass/Vol] Negative Normal Negative [facility] Comment on above: Performed By: #### 1 [id number], [id number] #### [facility] Laboratory [address] [place] [address] Hemoglobin Ql (U) Negative Normal Negative [facility] Comment on above: Performed By: #### 1 [id number], [id number] #### [facility] Laboratory [address] [place] [address] Ketones (U) [Mass/Vol] Negative Normal Negative [facility] Comment on above: Performed By: #### 1 [id number], [id number] #### [facility] Laboratory [address] [place] [address] Gallina.plasma/Lithi um.RBC (Bld) [Mass ratio] 0-3 Normal 0-3 [facility] Comment on above: Performed By: #### 1 [id number], [id number] #### [facility] Laboratory [address] [place] [address] Nitrite Ql (U) Negative Normal Negative [facility] Comment on above: Performed By: #### 1 [id number], [id number] #### [facility] Laboratory [address] [place] [address] pH (U) 7.5 [pH] Invalid Interpretation Code 5.0-9.0 [facility] Comment on above: Performed By: #### 1 [id number], [id number] #### [facility] Laboratory [address] [place] [address] Protein (U) [Mass/Vol] Negative Normal Negative [facility] Comment on above: Performed By: #### 1 [id number], [id number] #### [facility] Laboratory [address] [place] [address] Specific gravity (U) [Rel density] 1.015 Invalid Interpretation Code 1.005-1.03 0 [facility] Comment on above: Performed By: #### 1 [id number], [id number] #### [facility] Laboratory [address] [place] [address] Urobilinogen Qn (U) 0.2 {Phoebe'U}/dL Normal 0.0-1.0 [facility] Comment on above: Performed By: #### 1 [id number], [id number] #### [facility] Laboratory [address] [place] [address] WBC Auto Ql (U) 1+ Abnormal Negative [facility] Comment on above: Performed By: #### 1 [id number], [id number] #### [facility] Laboratory [address] [place] [address] WBC LM.HPF (Urine sed) [#/Area] 6-15 Abnormal 0-5 [facility] Comment on above: Performed By: #### 1 [id number], [id number] #### [facility] Laboratory [address] [place] [address] URINALYSISOrdered By: Hoang Chris on 06-23-2023 Bacteria LM Ql (Urine sed) 1+ /HPF Invalid Interpretation Code Trace/HPF [facility] UA Auto SS Bilirubin Ql (U) Negative [...] [Mass/Vol] Negative (06/23/23 3:01 AM) Normal Negative [facility] UA Auto SS Gallina.plasma/Lithi um.RBC (Bld) [Mass ratio] 0-3 /HPF Normal 0-3/HPF [facility] UA Auto SS Nitrite Ql (U) Negative (06/23/23 3:01 AM) Normal Negative [facility] UA Auto SS pH (U) 7.5 *NA* (06/23/23 3:01 AM) Invalid Interpretation Code 5.0 - 9.0 [facility] UA Auto SS Protein (U) [Mass/Vol] Negative (06/23/23 3:01 AM) Normal Negative [facility] UA Auto SS Specific gravity (U) [Rel density] 1.015 *NA* (06/23/23 3:01 AM) Invalid Interpretation Code 1.005 - 1.030 [facility] UA Auto SS UA Spec Desc Clean Catch (06/23/23 3:01 AM) Normal [facility] UA Auto SS Urobilinogen Qn (U) 0.3588224 {Phoebe'U}/dL Normal 0.0 - 1.0 EU/dL [facility] UA Auto SS WBC Auto Ql (U) 1+ *ABN* (06/23/23 3:01 AM) Invalid Interpretation Code Negative [facility] UA Auto SS WBC LM.HPF (Urine sed) [#/Area] 6-15 /HPF Invalid Interpretation Code 0-5/HPF [facility] UA Auto SS XR Chest Single Viewon [...] mGy = na DAP = na Normal [facility] eGFRon 06-23-2023 GFR/1.73 sq M.predicted among non-blacks MDRD (S/P/Bld) [Vol rate/Area] mL/min/{1.73_m2} Normal >=59 [facility] Comment on above: Order Comment: Order added by Discern Expert. Performed By: #### 2 [id number], [id number] #### [facility] Laboratory [address] [place] [address] Creatinine (Bld) [Mass/Vol]O rdered By: Cathie Reid on 05-15-2023 Creatinine [Mass/Vol] 1.0 mg/dL 0.6-1.3 [facility] Comment on above: ER/ESD physician is notified/shown all ISTAT results.Critical values may be confirmed by laboratory testing ifdeemed necessary by ER attending doctor. ISTAT XRay CREon 05-15-2023 Creatinine [Mass/Vol] 1.0 mg/dL Normal 0.6-1.3 [facility] Comment on above: Result Comment: ER/E SD physician is notified/shown all ISTAT results. Critical values may be confirmed by laboratory testing if deemed necessary by ER attending doctor. Performed By: #### I SCRE #### [facility] [address] [place] [address] ISTAT GFR 58.023 [facility] Comment on above: Result Comment: PERF ORMED BY: [place] [address] PATHOLOGIST MATERIAL MIXER MARISOL AGUSTIN M.D. Performed By: #### I SCRE #### [facility] [address] [place] [address] MR head/brain wo/w conon MR head/brain wo/w con [facility] [address] [place] [address] [place] [address] MRI Report Signed Patient: Judith Khan MR#: [id number] 320 : 1945 Acct:[id number] Age/Sex: 78 / F ADM Date: 05/15/23 Loc: MR Room: Type: [facility] Attending Dr: Cathie Reid [facility] Copies to: DIXIE Eng Ordering Provider: DIXIE [...] Adeel Meyer M.D.05/15/2023 5:24 PM Dictation Location: [place] [address] Transcribed By: [facility] 05/15/231723 Dictated By: Adeel Meyer II, MD 05/15/23 171 Signed By: 05/15/231723 [facility] No Panel InformationOrdered By: Cathie Reid on 05-15-2023 Bedside Estimated GFR (eGFR) 58.023 [facility] 37on 01-12-2023 37 Hold metoprolol and see if fatigue levels improve Continue all other medications Monitor blood pressure 1-2 times a day and if it increases greater than 130/80 please call the office for medication adjustment, or for tachycardia/palpitations Normal [facility] Office Visiton 01-12-2023 Follow-up visit [id number] Donato Khan Susan 1945 F Date Provider Department Center 01/12/2023 MILA SORIA [facility] Family History Problem Relation Age of Onset Stroke Mother Stroke Brother Other Mother's Sister Coronary artery disease Mother's Sister Stroke Maternal Grandmother Family Status - Relation Status Age at Mother Brother Mother's Sister Maternal Grandmother Level of Service:[address] [place] OFFICE/OUTPATIENT ESTABLISHED LOW MDM 20-29 MIN Normal [facility] BNPon 10-09-2022 Natriuretic peptide B (Bld) [Mass/Vol] 90.0 pg/mL Normal <=1,800.0 [facility] Comment on above: Performed By: #### M G, CMP, TSH, T7, BNP #### [facility] Laboratory [address] [place] [address] Dr. Glenys Holly CBC AUTO DIFFon 10-09-2022 BASO # 0.1 103/ul Normal 0.0-0.1 [facility] Comment on above: Performed By: #### M G, CMP, TSH, T7, BNP #### [facility] [address] [address] [address] Glenys Holly Basophils/100 WBC (Bld) 1.0 % Normal 0.2-2.0 [facility] Comment on above: Performed By: #### M G, CMP, TSH, T7, BNP #### [facility] [address] [address] [address] Glenys Holly EO # 0.5 103/ul Normal 0.0-0.7 [facility] Comment on above: Performed By: #### M G, CMP, TSH, T7, BNP #### [facility] [address] [address] [address] Glenys Holly Eosinophils/100 WBC (Bld) 6.4 % Normal 0.9-7.0 [facility] Comment on above: Performed By: #### M G, CMP, TSH, T7, BNP #### [facility] [address] [place] [address] Dr. Glenys Holly Erythrocyte distribution width (RBC) [Ratio] 15.4 % Critically high 11.0-15.0 [facility] Comment on above: Performed By: #### M G, CMP, TSH, T7, BNP #### [facility] [address] [place] [address] Dr. Glenys Holly Hematocrit (Bld) [Volume fraction] 42.8 % Normal 36.0-48.0 [facility] Comment on above: Performed By: #### M G, CMP, TSH, T7, BNP #### [facility] [address] [place] [address] Dr. Glenys Holly Hemoglobin (Bld) [Mass/Vol] 14.1 g/dL Normal 12.0-16.0 [facility] Comment on above: Performed By: #### M G, CMP, TSH, T7, BNP #### [facility] [address] [place] [address] Dr. Glenys Holly IG # 0.01 10e3/ul Normal 0.00-0.03 [facility] Comment on above: Performed By: #### M G, CMP, TSH, T7, BNP #### [facility] [address] [place] [address] Dr. Glenys Holly IG % 0.1 % Normal 0.0-0.5 [facility] Comment on above: Performed By: #### M G, CMP, TSH, T7, BNP #### [facility] [address] [place] [address] Dr. Glenys Holly LYMPH # 3.3 103/ul Normal 1.2-3.8 [facility] Comment on above: Performed By: #### M G, CMP, TSH, T7, BNP #### [facility] [address] [place] [address] Dr. Glenys Holly Lymphocytes/100 WBC (Bld) 44.2 % Normal 20.5-60.0 [facility] Comment on above: Performed By: #### M G, CMP, TSH, T7, BNP #### [facility] [address] [place] [address] Dr. Glenys Holly MANUAL DIFF REQ NO Normal [facility] Comment on above: Performed By: #### M G, CMP, TSH, T7, BNP #### [facility] [address] [place] [address] Dr. Glenys Holly MCH (RBC) [Entitic mass] 30.3 pg Normal 26.7-34.0 [facility] Comment on above: Performed By: #### M G, CMP, TSH, T7, BNP #### [facility] [address] [place] [address] Dr. Glenys Holly MCHC (RBC) [Mass/Vol] 32.9 g/dL Normal 29.9-35.2 [facility] Comment on above: Performed By: #### M G, CMP, TSH, T7, BNP #### [facility] [address] [place] [address] Dr. Glenys Holly MCV (RBC) [Entitic vol] 92.0 fL Normal 81.0-99.0 [facility] Comment on above: Performed By: #### M G, CMP, TSH, T7, BNP #### [facility] [address] [place] [address] Dr. Glenys Holly MONO # 1.2 103/ul Critically high 0.3-0.8 [facility] Comment on above: Performed By: #### M G, CMP, TSH, T7, BNP #### [facility] [address] [place] [address] Dr. Glenys Holly Monocytes/100 WBC (Bld) 16.4 % Critically high 1.7-12.0 [facility] Comment on above: Performed By: #### M G, CMP, TSH, T7, BNP #### [facility] [address] [place] [address] Dr. Glenys Holly NEUT # 2.4 103/ul Normal 1.4-6.5 [facility] Comment on above: Performed By: #### M G, CMP, TSH, T7, BNP #### [facility] [address] [address] [address] Glenys Holly Neutrophils/100 WBC (Bld) 31.9 % Critically low 43.0-75.0 [facility] Comment on above: Performed By: #### M G, CMP, TSH, T7, BNP #### [facility] [address] [address] [address] Glenys Holly Platelet mean volume (Bld) [Entitic vol] 10.3 fL Normal 9.5-13.5 [facility] Comment on above: Performed By: #### M G, CMP, TSH, T7, BNP #### [facility] [address] [place] [address] Dr. Glenys Holly PLT 379 103/ul Normal 150-450 [facility] Comment on above: Performed By: #### M G, CMP, TSH, T7, BNP #### [facility] [address] [place] [address] Dr. Glenys Holly RBC 4.65 106/ul Normal 4.20-5.40 [facility] Comment on above: Performed By: #### M G, CMP, TSH, T7, BNP #### [facility] [address] [place] [address] Dr. Glenys Holly WBC 7.4 103/ul Normal 4.0-11.0 [facility] Comment on above: Performed By: #### M G, CMP, TSH, T7, BNP #### [facility] [address] [place] [address] Dr. Glenys Holly FERRITINon 10-09-2022 Ferritin [Mass/Vol] 68.0 ng/mL Normal 8.0-252.0 [facility] Comment on above: Performed By: #### F ERR, IRON, VITAD ####[facility] [id number] [place] [address]Dr. Glenys Holly FREE THYROXINE INDEX T7on FTI 3.10 Normal 1.30-4.50 [facility] Comment on above: Performed By: #### M G, CMP, TSH, T7, BNP #### [facility] [address] [place] [address] Dr. Glenys Holly T3U 36.0 % Normal 30.0-39.0 [facility] Comment on above: Performed By: #### M G, CMP, TSH, T7, BNP #### [facility] [address] [address] [address] Glenys Holly T4 [Mass/Vol] 8.60 ug/dL Normal 4.80-13.90 [facility] Comment on above: Performed By: #### M G, CMP, TSH, T7, BNP #### [facility] [address] [address] [address] Glenys Holly IRONon 10-09-2022 Iron [Mass/Vol] 52.0 ug/dL Normal 50.0-170.0 [facility] Comment on above: Performed By: #### F ERR, IRON, VITAD ####[facility] [id number] [place] [address]Dr. Glenys Holly MAGNESIUMon 10-09-2022 Magnesium [Mass/Vol] 2.0 mg/dL Normal 1.8-2.4 [facility] Comment on above: Performed By: #### M G, CMP, TSH, T7, BNP #### [facility] [address] [place] [address] Dr. Glenys Holly PROF 14(COMP METB)on 023 Albumin [Mass/Vol] 3.5 g/dL Normal 3.4-5.0 [facility] Comment on above: Performed By: #### M G, CMP, TSH, T7, BNP #### [facility] [address] [place] [address] Dr. Glenys Holly Albumin/Globulin [Mass ratio] 1.0 {ratio} Normal [facility] Comment on above: Performed By: #### M G, CMP, TSH, T7, BNP #### [facility] [address] [address] [address] Glenys Holly ALP [Catalytic activity/Vol] 134 U/L Critically high 46-116 [facility] Comment on above: Performed By: #### M G, CMP, TSH, T7, BNP #### [facility] [address] [address] [address] Glenys Holly ALT [Catalytic activity/Vol] 34 U/L Normal 14-59 [facility] Comment on above: Performed By: #### M G, CMP, TSH, T7, BNP #### [facility] [address] [address] [address] Glenys Holly Anion gap [Moles/Vol] 8.8 mmol/L Normal [facility] Comment on above: Performed By: #### M G, CMP, TSH, T7, BNP #### [facility] [address] [address] [address] Glenys Holly AST [Catalytic activity/Vol] 19 U/L Normal 15-37 [facility] Comment on above: Performed By: #### M G, CMP, TSH, T7, BNP #### [facility] [address] [place] [address] Dr. Glenys Holly Bilirubin [Mass/Vol] 0.2 mg/dL Normal 0.2-1.0 [facility] Comment on above: Performed By: #### M G, CMP, TSH, T7, BNP #### [facility] [address] [place] [address] Dr. Glenys Holly Calcium [Mass/Vol] 10.6 mg/dL Critically high 8.5-10.1 [facility] Comment on above: Performed By: #### M G, CMP, TSH, T7, BNP #### [facility] [address] [address] [address] Glenys Holly Chloride [Moles/Vol] 105 mmol/L Normal 98-107 [facility] Comment on above: Performed By: #### M G, CMP, TSH, T7, BNP #### [facility] [address] [address] [address] Glenys Holly CO2 [Moles/Vol] 30.0 mmol/L Normal 21.0-32.0 [facility] Comment on above: Performed By: #### M G, CMP, TSH, T7, BNP #### [facility] [address] [address] [address] Glenys Holly Creatinine [Mass/Vol] 0.86 mg/dL Normal 0.55-1.02 [facility] Comment on above: Performed By: #### M G, CMP, TSH, T7, BNP #### [facility] [address] [address] [address] Glenys Holly EGFR-AF S[place]ESE >60 Normal >=60 [facility] Comment on above: Performed By: #### M G, CMP, TSH, T7, BNP #### [facility] [address] [address] [address] Glenys Holly EGFR-NON AF [place] >60 Normal >=60 [facility] Comment on above: Performed By: #### M G, CMP, TSH, T7, BNP #### [facility] [address] [place] [address] Dr. Glenys Holly Globulin (S) [Mass/Vol] 3.5 g/dL Normal [facility] Comment on above: Performed By: #### M G, CMP, TSH, T7, BNP #### [facility] [address] [place] [address] Dr. Glenys Holly Glucose [Mass/Vol] 99 mg/dL Normal 74-106 [facility] Comment on above: Performed By: #### M G, CMP, TSH, T7, BNP #### [facility] [address] [place] [address] Dr. Glenys Holly Potassium [Moles/Vol] 3.8 mmol/L Normal 3.5-5.1 [facility] Comment on above: Performed By: #### M G, CMP, TSH, T7, BNP #### [facility] [address] [place] [address] Dr. Glenys Holly Protein [Mass/Vol] 7.0 g/dL Normal 6.4-8.2 [facility] Comment on above: Performed By: #### M G, CMP, TSH, T7, BNP #### [facility] [address] [place] [address] Dr. Glenys Holly Sodium [Moles/Vol] 140 mmol/L Normal 136-145 [facility] Comment on above: Performed By: #### M G, CMP, TSH, T7, BNP #### [facility] [address] [address] [address] Glenys Holly Urea nitrogen [Mass/Vol] 25.0 mg/dL Critically high 7.0-18.0 [facility] Comment on above: Performed By: #### M G, CMP, TSH, T7, BNP #### [facility] [address] [address] [address] Glenys Holly Urea nitrogen/Creatinine [Mass ratio] 29.1 mg/mg Normal [facility] Comment on above: Performed By: #### M G, CMP, TSH, T7, BNP #### [facility] [address] [address] [address] Glenys Holly TSHon 10-09-2022 TSH 1.720 uIU/mL Normal 0.358-3.74 0 [facility] Comment on above: Performed By: #### M G, CMP, TSH, T7, BNP #### [facility] [address] [address] [address] Glenys Holly VITAMIN D 25 OHon 10-09-2022 VIT D 25-OH 89.3 ng/mL Normal [facility] Comment on above: Performed By: #### F ERR, IRON, VITAD ####[facility] [address] [address]Dr. Glenys Holly VIT D RANGES SEE BELOW Normal [facility] Comment on above: Result Comment: <20 ng/mL Vit D deficient 20 - <30 ng/mL Vit D insufficient 30 - 100 ng/mL Vit D sufficient >100 ng/mL Potential Toxicity Performed By: #### F ERR, IRON, VITAD ####[facility] [address] [id number]. Glenys Holly NM STRESS/REST MULTIon 05-24 NM STRESS/REST MULTI Patient: Shana KHAN Exam Date: 05/24/2022 : 1945 Gender:F Ordering : DR KAVON SAMS . Admission #: [id number] Family : Order #: [id number] CLICK HERE TO VIEW EXAM RADIOLOGY REPORT [...] M.D. on 05/24/2022 at 16:02 Normal [facility] BNPon 05-10-2022 Natriuretic peptide B (Bld) [Mass/Vol] 1305.0 pg/mL Normal <=1,800.0 [facility] Comment on above: Performed By: #### M G, CMP, TSH, T7, BNP #### [facility] [address] [address] [address] Glenys Holly CBC AUTO DIFFon 05-10-2022 BASO # 0.0 103/ul Normal 0.0-0.1 [facility] Comment on above: Performed By: #### M G, CMP, TSH, T7, BNP #### [facility] [address] [address] [address] Glenys Holly Basophils/100 WBC (Bld) 0.3 % Normal 0.2-2.0 [facility] Comment on above: Performed By: #### M G, CMP, TSH, T7, BNP #### [facility] [address] [place] [address] Dr. Glenys Holly EO # 0.0 103/ul Normal 0.0-0.7 [facility] Comment on above: Performed By: #### M G, CMP, TSH, T7, BNP #### [facility] [address] [place] [address] Dr. Glenys Holly Eosinophils/100 WBC (Bld) 0.1 % Critically low 0.9-7.0 [facility] Comment on above: Performed By: #### M G, CMP, TSH, T7, BNP #### [facility] [address] [place] [address] Dr. Glenys Holly Erythrocyte distribution width (RBC) [Ratio] 15.1 % Critically high 11.0-15.0 [facility] Comment on above: Performed By: #### M G, CMP, TSH, T7, BNP #### [facility] [address] [place] [address] Dr. Glenys Holly Hematocrit (Bld) [Volume fraction] 42.9 % Normal 36.0-48.0 [facility] Comment on above: Performed By: #### M G, CMP, TSH, T7, BNP #### [facility] [address] [place] [address] Dr. Glenys Holly Hemoglobin (Bld) [Mass/Vol] 14.6 g/dL Normal 12.0-16.0 [facility] Comment on above: Performed By: #### M G, CMP, TSH, T7, BNP #### [facility] [address] [place] [address] Dr. Glenys Holly IG # 0.05 10e3/ul Critically high 0.00-0.03 [facility] Comment on above: Performed By: #### M G, CMP, TSH, T7, BNP #### [facility] [address] [place] [address] Dr. Glenys Holly IG % 0.7 % Critically high 0.0-0.5 [facility] Comment on above: Performed By: #### M G, CMP, TSH, T7, BNP #### [facility] [address] [place] [address] Dr. Glenys Holly LYMPH # 1.6 103/ul Normal 1.2-3.8 [facility] Comment on above: Performed By: #### M G, CMP, TSH, T7, BNP #### [facility] [address] [place] [address] Dr. Glenys Holly Lymphocytes/100 WBC (Bld) 20.4 % Critically low 20.5-60.0 [facility] Comment on above: Performed By: #### M G, CMP, TSH, T7, BNP #### [facility] [address] [place] [address] Dr. Glenys Holly MANUAL DIFF REQ NO Normal [facility] Comment on above: Performed By: #### M G, CMP, TSH, T7, BNP #### [facility] [address] [place] [address] Dr. Glenys Holly MCH (RBC) [Entitic mass] 29.9 pg Normal 26.7-34.0 [facility] Comment on above: Performed By: #### M G, CMP, TSH, T7, BNP #### [facility] [address] [place] [address] Dr. Glenys Holly MCHC (RBC) [Mass/Vol] 34.0 g/dL Normal 29.9-35.2 [facility] Comment on above: Performed By: #### M G, CMP, TSH, T7, BNP #### [facility] [address] [place] [address] Dr. Glenys Holly MCV (RBC) [Entitic vol] 87.9 fL Normal 81.0-99.0 [facility] Comment on above: Performed By: #### M G, CMP, TSH, T7, BNP #### [facility] [address] [place] [address] Dr. Glenys Holly MONO # 0.7 103/ul Normal 0.3-0.8 [facility] Comment on above: Performed By: #### M G, CMP, TSH, T7, BNP #### [facility] [address] [place] [address] Dr. Glenys Holly Monocytes/100 WBC (Bld) 9.5 % Normal 1.7-12.0 [facility] Comment on above: Performed By: #### M G, CMP, TSH, T7, BNP #### [facility] [address] [address] [address] Glenys Holly NEUT # 5.2 103/ul Normal 1.4-6.5 [facility] Comment on above: Performed By: #### M G, CMP, TSH, T7, BNP #### [facility] [address] [place] [address] Dr. Glenys Holly Neutrophils/100 WBC (Bld) 69.0 % Normal 43.0-75.0 [facility] Comment on above: Performed By: #### M G, CMP, TSH, T7, BNP #### [facility] [address] [place] [address] Dr. Glenys Holly Platelet mean volume (Bld) [Entitic vol] 11.2 fL Normal 9.5-13.5 [facility] Comment on above: Performed By: #### M G, CMP, TSH, T7, BNP #### [facility] [address] [address] [address] Glenys Holly PLT 349 103/ul Normal 150-450 [facility] Comment on above: Performed By: #### M G, CMP, TSH, T7, BNP #### [facility] [address] [address] [address] Glenys Holly RBC 4.88 106/ul Normal 4.20-5.40 [facility] Comment on above: Performed By: #### M G, CMP, TSH, T7, BNP #### [facility] [address] [place] [address] Dr. Glenys Holly WBC 7.6 103/ul Normal 4.0-11.0 [facility] Comment on above: Performed By: #### M G, CMP, TSH, T7, BNP #### [facility] [address] [place] [address] Dr. Glenys Holly PROF 14(COMP METB)on 11-30-2 022 Albumin [Mass/Vol] 3.3 g/dL Critically low 3.4-5.0 [facility] e [facility] Comment on above: Performed By: #### H STROPN, BNP, CMP ####[facility] [address] [address]Dr. Glenys Holly Albumin/Globulin [Mass ratio] 1.1 {ratio} Normal [facility] Comment on above: Performed By: #### H STROPN, BNP, CMP ####[facility] [address] [address]Dr. Glenys Avni ALP [Catalytic activity/Vol] 78 U/L Normal 46-116 [facility] Comment on above: Performed By: #### H STROPN, BNP, CMP ####[facility] [address] [place], [place] [address]Dr. Glenys Holly ALT [Catalytic activity/Vol] 10 U/L Critically low 14-59 [facility] Comment on above: Performed By: #### H STROPN, BNP, CMP ####[facility] [address] [place], [place] [address]Dr. Glenys Holly Anion gap [Moles/Vol] 11.2 mmol/L Normal [facility] Comment on above: Performed By: #### H STROPN, BNP, CMP ####[facility] [address] [place], [place] [address]Dr. Glenys Holly AST [Catalytic activity/Vol] 15 U/L Normal 15-37 [facility] Comment on above: Performed By: #### H STROPN, BNP, CMP ####[facility] [address] [address]Dr. Glenys Holly Bilirubin [Mass/Vol] 0.4 mg/dL Normal 0.2-1.0 [facility] Comment on above: Performed By: #### H STROPN, BNP, CMP ####[facility] [address] [address]Dr. Glenys Holly Calcium [Mass/Vol] 8.9 mg/dL Normal 8.5-10.1 [facility] Comment on above: Performed By: #### H STROPN, BNP, CMP ####[facility] [address] [address]Dr. Glenys Holly Chloride [Moles/Vol] 98 mmol/L Normal 98-107 [facility] Comment on above: Performed By: #### H STROPN, BNP, CMP ####[facility] [address] [address]Dr. Glenys Holly CO2 [Moles/Vol] 31.1 mmol/L Normal 21.0-32.0 [facility] Comment on above: Performed By: #### H STROPN, BNP, CMP ####[facility] [address] [place], [place] [address]Dr. Glenys Holly Creatinine [Mass/Vol] 1.15 mg/dL Critically high 0.55-1.02 [facility] Comment on above: Performed By: #### H STROPN, BNP, CMP ####[facility] [address] [place], [place] [address]Dr. Karinaparmjit Avni EGFR-AF [place] 56 mL/min/1.73m2 Critically low >=60 [facility] Comment on above: Performed By: #### H STROPN, BNP, CMP ####[facility] [address] [place], [place] [address]Dr. Glenys Avni EGFR-NON AF [place] 46 mL/min/1.73m2 Critically low >=60 [facility] Comment on above: Performed By: #### H STROPN, BNP, CMP ####[facility] [address] [place], [place] [address]Dr. Glenys Holly Globulin (S) [Mass/Vol] 3.0 g/dL Normal [facility] Comment on above: Performed By: #### H STROPN, BNP, CMP ####[facility] [address] [place], [place] [address]Dr. Glenys Holly Glucose [Mass/Vol] 107 mg/dL Critically high 74-106 T [facility] Comment on above: Performed By: #### H STROPN, BNP, CMP ####[facility] [address] [place], [place] [address]Dr. Glenys Avni Potassium [Moles/Vol] 3.3 mmol/L Critically low 3.5-5.1 [facility] Comment on above: Performed By: #### H STROPN, BNP, CMP ####[facility] [address] [address]Dr. Glenys Holly Protein [Mass/Vol] 6.3 g/dL Critically low 6.4-8.2 [facility] Comment on above: Performed By: #### H STROPN, BNP, CMP ####[facility] [address] [address]Dr. Glenys Holly Sodium [Moles/Vol] 137 mmol/L Normal 136-145 [facility] Comment on above: Performed By: #### H STROPN, BNP, CMP ####[facility] [address] [address]Dr. Glenys Holly Urea nitrogen [Mass/Vol] 29.0 mg/dL Critically high 7.0-18.0 [facility] Comment on above: Performed By: #### H STROPN, BNP, CMP ####[facility] [address] [address]Dr. Glenys Holly Urea nitrogen/Creatinine [Mass ratio] 25.2 mg/mg Normal [facility] Comment on above: Performed By: #### H STROPN, BNP, CMP ####[facility] [address] [address]Dr. Glenys Holly TROPONIN, HIGH SENSITIVITYon 05-10-2022 HSTROP 50.5 pg/mL Normal 4.0-51.3 [facility] Comment on above: Result Comment: CUT- OFF POINTS HAVE BEEN ESTABLISHED BASED ON THE FOURTH UNIVERSAL DEFINITIONS OF MYOCARDIAL INFARCTION. THE UPPER REFERENCE LIMIT (URL) OF TROPONIN, DEFINED THE 99TH PERCENTILE OF cTnI DISTRIBUTION IN A REFERENCE POPULATION, HAS BEEN CONFIRMED THE DECISION THRESHOLD FOR VT DIAGNOSIS. Performed By: #### H STROPN, BNP, CMP ####[facility] [address] [address]Dr. Glenys Holly XR CHEST 2 Von 05-10-2022 [...] RAMIRO SPENCER Date: 2022-05-10 08:10 Normal [facility] BNPon 05-09-2022 Natriuretic peptide B (Bld) [Mass/Vol] 1975.0 pg/mL Critically high <=1,800.0 [facility] Comment on above: Performed By: #### M G, CMP, TSH, T7, BNP #### [facility] [address] [place] [address] Dr. Glenys Holly CBC AUTO DIFFon 05-09-2022 BASO # 0.0 103/ul Normal 0.0-0.1 [facility] Comment on above: Performed By: #### M G, CMP, TSH, T7, BNP #### [facility] [address] [address] [address] Glenys Holly Basophils/100 WBC (Bld) 0.4 % Normal 0.2-2.0 [facility] Comment on above: Performed By: #### M G, CMP, TSH, T7, BNP #### [facility] [address] [place] [address] Dr. Glenys Holly EO # 0.0 103/ul Normal 0.0-0.7 [facility] Comment on above: Performed By: #### M G, CMP, TSH, T7, BNP #### [facility] [address] [place] [address] Dr. Glenys Holly Eosinophils/100 WBC (Bld) 0.0 % Critically low 0.9-7.0 [facility] Comment on above: Performed By: #### M G, CMP, TSH, T7, BNP #### [facility] [address] [place] [address] Dr. Glenys Holly Erythrocyte distribution width (RBC) [Ratio] 15.2 % Critically high 11.0-15.0 [facility] Comment on above: Performed By: #### M G, CMP, TSH, T7, BNP #### [facility] [address] [place] [address] Dr. Glenys Holly Hematocrit (Bld) [Volume fraction] 41.7 % Normal 36.0-48.0 [facility] Comment on above: Performed By: #### M G, CMP, TSH, T7, BNP #### [facility] [address] [place] [address] Dr. Glenys Holly Hemoglobin (Bld) [Mass/Vol] 14.1 g/dL Normal 12.0-16.0 [facility] Comment on above: Performed By: #### M G, CMP, TSH, T7, BNP #### [facility] [address] [place] [address] Dr. Glenys Holly IG # 0.12 10e3/ul Critically high 0.00-0.03 [facility] Comment on above: Performed By: #### M G, CMP, TSH, T7, BNP #### [facility] [address] [place] [address] Dr. Glenys Holly IG % 1.2 % Critically high 0.0-0.5 [facility] Comment on above: Performed By: #### M G, CMP, TSH, T7, BNP #### [facility] [address] [place] [address] Dr. lGenys Holly LYMPH # 1.6 103/ul Normal 1.2-3.8 [facility] Comment on above: Performed By: #### M G, CMP, TSH, T7, BNP #### [facility] [address] [place] [address] Dr. Glenys Holly Lymphocytes/100 WBC (Bld) 16.0 % Critically low 20.5-60.0 [facility] Comment on above: Performed By: #### M G, CMP, TSH, T7, BNP #### [facility] [address] [place] [address] Dr. Glenys Holly MANUAL DIFF REQ NO Normal [facility] Comment on above: Performed By: #### M G, CMP, TSH, T7, BNP #### [facility] [address] [place] [address] Dr. Glenys Holly MCH (RBC) [Entitic mass] 30.0 pg Normal 26.7-34.0 [facility] Comment on above: Performed By: #### M G, CMP, TSH, T7, BNP #### [facility] [address] [place] [address] Dr. Glenys Holly MCHC (RBC) [Mass/Vol] 33.8 g/dL Normal 29.9-35.2 [facility] Comment on above: Performed By: #### M G, CMP, TSH, T7, BNP #### [facility] [address] [place] [address] Dr. Glenys Holly MCV (RBC) [Entitic vol] 88.7 fL Normal 81.0-99.0 [facility] Comment on above: Performed By: #### M G, CMP, TSH, T7, BNP #### [facility] [address] [place] [address] Dr. Glenys Holly MONO # 1.3 103/ul Critically high 0.3-0.8 [facility] Comment on above: Performed By: #### M G, CMP, TSH, T7, BNP #### [facility] [address] [place] [address] Dr. Glenys Holly Monocytes/100 WBC (Bld) 13.2 % Critically high 1.7-12.0 [facility] Comment on above: Performed By: #### M G, CMP, TSH, T7, BNP #### [facility] [address] [place] [address] Dr. Glenys Holly NEUT # 6.8 103/ul Critically high 1.4-6.5 [facility] Comment on above: Performed By: #### M G, CMP, TSH, T7, BNP #### [facility] [address] [place] [address] Dr. Glenys Holly Neutrophils/100 WBC (Bld) 69.2 % Normal 43.0-75.0 [facility] Comment on above: Performed By: #### M G, CMP, TSH, T7, BNP #### [facility] [address] [address] [address] Glenys Holly Platelet mean volume (Bld) [Entitic vol] 11.6 fL Normal 9.5-13.5 [facility] Comment on above: Performed By: #### M G, CMP, TSH, T7, BNP #### [facility] [address] [address] [address] Glenys Holly PLT 329 103/ul Normal 150-450 [facility] Comment on above: Performed By: #### M G, CMP, TSH, T7, BNP #### [facility] [address] [place] [address] Dr. Glenys Holly RBC 4.70 106/ul Normal 4.20-5.40 [facility] Comment on above: Performed By: #### M G, CMP, TSH, T7, BNP #### [facility] [address] [place] [address] Dr. Glenys Holly WBC 9.9 103/ul Normal 4.0-11.0 [facility] Comment on above: Performed By: #### M G, CMP, TSH, T7, BNP #### [facility] [address] [place] [address] Dr. Glenys Holly PROF 14(COMP METB)on 022 Albumin [Mass/Vol] 3.0 g/dL Critically low 3.4-5.0 Th [facility] Comment on above: Performed By: #### M G, CMP, TSH, T7, BNP #### [facility] [address] [place] [address] Dr. Glenys Holly Albumin/Globulin [Mass ratio] 1.1 {ratio} Normal [facility] Comment on above: Performed By: #### M G, CMP, TSH, T7, BNP #### [facility] [address] [place] [address] Dr. Glenys Holly ALP [Catalytic activity/Vol] 78 U/L Normal 46-116 [facility] Comment on above: Performed By: #### M G, CMP, TSH, T7, BNP #### [facility] [address] [place] [address] Dr. Glenys Holly ALT [Catalytic activity/Vol] 10 U/L Critically low 14-59 [facility] Comment on above: Performed By: #### M G, CMP, TSH, T7, BNP #### [facility] [address] [place] [address] Dr. Glenys Holly Anion gap [Moles/Vol] 9.6 mmol/L Normal [facility] Comment on above: Performed By: #### M G, CMP, TSH, T7, BNP #### [facility] [address] [place] [address] Dr. Glenys Holly AST [Catalytic activity/Vol] 18 U/L Normal 15-37 [facility] Comment on above: Performed By: #### M G, CMP, TSH, T7, BNP #### [facility] [address] [place] [address] Dr. Glenys Holly Bilirubin [Mass/Vol] 0.3 mg/dL Normal 0.2-1.0 [facility] Comment on above: Performed By: #### M G, CMP, TSH, T7, BNP #### [facility] [address] [place] [address] Dr. Glenys Holly Calcium [Mass/Vol] 9.1 mg/dL Normal 8.5-10.1 [facility] Comment on above: Performed By: #### M G, CMP, TSH, T7, BNP #### [facility] [address] [place] [address] Dr. Glenys Holly Chloride [Moles/Vol] 102 mmol/L Normal 98-107 [facility] Comment on above: Performed By: #### M G, CMP, TSH, T7, BNP #### [facility] [address] [place] [address] Dr. Glenys Holly CO2 [Moles/Vol] 30.3 mmol/L Normal 21.0-32.0 [facility] Comment on above: Performed By: #### M G, CMP, TSH, T7, BNP #### [facility] [address] [address] [address] Glenys Holly Creatinine [Mass/Vol] 0.83 mg/dL Normal 0.55-1.02 [facility] Comment on above: Performed By: #### M G, CMP, TSH, T7, BNP #### [facility] [address] [place] [address] Dr. Glenys Holly EGFR-AF S[place] >60 Normal >=60 [facility] Comment on above: Performed By: #### M G, CMP, TSH, T7, BNP #### [facility] [address] [place] [address] Dr. Glenys Holly EGFR-NON AF [place] >60 Normal >=60 [facility] Comment on above: Performed By: #### M G, CMP, TSH, T7, BNP #### [facility] [address] [place] [address] Dr. Glenys Holly Globulin (S) [Mass/Vol] 2.8 g/dL Normal [facility] Comment on above: Performed By: #### M G, CMP, TSH, T7, BNP #### [facility] [address] [place] [address] Dr. Glenys Holly Glucose [Mass/Vol] 105 mg/dL Normal 74-106 [facility] Comment on above: Performed By: #### M G, CMP, TSH, T7, BNP #### [facility] [address] [place] [address] Dr. Glenys Holly Potassium [Moles/Vol] 2.9 mmol/L Critically low 3.5-5.1 [facility] Comment on above: Performed By: #### M G, CMP, TSH, T7, BNP #### [facility] [address] [place] [address] Dr. Glenys Holly Protein [Mass/Vol] 5.8 g/dL Critically low 6.4-8.2 Th e [facility] Comment on above: Performed By: #### M G, CMP, TSH, T7, BNP #### [facility] [address] [place] [address] Dr. Glenys Holly Sodium [Moles/Vol] 138 mmol/L Normal 136-145 [facility] Comment on above: Performed By: #### M G, CMP, TSH, T7, BNP #### [facility] [address] [address] [address] Glenys Holly Urea nitrogen [Mass/Vol] 21.0 mg/dL Critically high 7.0-18.0 [facility] Comment on above: Performed By: #### M G, CMP, TSH, T7, BNP #### [facility] [address] [address] [address] Glenys Holly Urea nitrogen/Creatinine [Mass ratio] 25.3 mg/mg Normal [facility] Comment on above: Performed By: #### M G, CMP, TSH, T7, BNP #### [facility] [address] [address] [address] Glenys Holly TROPONIN, HIGH SENSITIVITYon 05-09-2022 HSTROP 49.8 pg/mL Normal 4.0-51.3 [facility] Comment on above: Result Comment: CUT- OFF POINTS HAVE BEEN ESTABLISHED BASED ON THE FOURTH UNIVERSAL DEFINITIONS OF MYOCARDIAL INFARCTION. THE UPPER REFERENCE LIMIT (URL) OF TROPONIN, DEFINED THE 99TH PERCENTILE OF cTnI DISTRIBUTION IN A REFERENCE POPULATION, HAS BEEN CONFIRMED THE DECISION THRESHOLD FOR VT DIAGNOSIS. Performed By: #### M G, CMP, TSH, T7, BNP #### [facility] [address] [address] [address] Glenys Holly BNPon 05-08-2022 Natriuretic peptide B (Bld) [Mass/Vol] 2723.0 pg/mL Critically high <=1,800.0 [facility] Comment on above: Performed By: #### C MP, HSTROPN, BNP ####[facility] [address] [address]Dr. Glenys Holly CBC AUTO DIFFon 05-08-2022 BASO # 0.0 103/ul Normal 0.0-0.1 [facility] Comment on above: Performed By: #### M G, CMP, TSH, T7, BNP #### [facility] [address] [address] [address] Glenys Holly Basophils/100 WBC (Bld) 0.2 % Normal 0.2-2.0 [facility] Comment on above: Performed By: #### M G, CMP, TSH, T7, BNP #### [facility] [address] [place] [address] Dr. Glenys Holly EO # 0.0 103/ul Normal 0.0-0.7 [facility] Comment on above: Performed By: #### M G, CMP, TSH, T7, BNP #### [facility] [address] [place] [address] Dr. Glenys Holly Eosinophils/100 WBC (Bld) 0.1 % Critically low 0.9-7.0 [facility] Comment on above: Performed By: #### M G, CMP, TSH, T7, BNP #### [facility] [address] [place] [address] Dr. Glenys Holly Erythrocyte distribution width (RBC) [Ratio] 15.9 % Critically high 11.0-15.0 [facility] Comment on above: Performed By: #### M G, CMP, TSH, T7, BNP #### [facility] [address] [place] [address] Dr. Glenys Holly Hematocrit (Bld) [Volume fraction] 38.0 % Normal 36.0-48.0 [facility] Comment on above: Performed By: #### M G, CMP, TSH, T7, BNP #### [facility] [address] [place] [address] Dr. Glenys Holly Hemoglobin (Bld) [Mass/Vol] 12.5 g/dL Normal 12.0-16.0 [facility] Comment on above: Performed By: #### M G, CMP, TSH, T7, BNP #### [facility] [address] [place] [address] Dr. Glenys Holly IG # 0.17 10e3/ul Critically high 0.00-0.03 [facility] Comment on above: Performed By: #### M G, CMP, TSH, T7, BNP #### [facility] [address] [place] [address] Dr. Glenys Holly IG % 1.1 % Critically high 0.0-0.5 [facility] Comment on above: Performed By: #### M G, CMP, TSH, T7, BNP #### [facility] [address] [place] [address] Dr. Glenys Holly LYMPH # 1.0 103/ul Critically low 1.2-3.8 [facility] Comment on above: Performed By: #### M G, CMP, TSH, T7, BNP #### [facility] [address] [place] [address] Dr. Glenys Holly Lymphocytes/100 WBC (Bld) 6.2 % Critically low 20.5-60.0 [facility] Comment on above: Performed By: #### M G, CMP, TSH, T7, BNP #### [facility] [address] [place] [address] Dr. Glenys Holly MANUAL DIFF REQ NO Normal [facility] Comment on above: Performed By: #### M G, CMP, TSH, T7, BNP #### [facility] [address] [place] [address] Dr. Glenys Holly MCH (RBC) [Entitic mass] 30.1 pg Normal 26.7-34.0 [facility] Comment on above: Performed By: #### M G, CMP, TSH, T7, BNP #### [facility] [address] [place] [address] Dr. Glenys Holly MCHC (RBC) [Mass/Vol] 32.9 g/dL Normal 29.9-35.2 [facility] Comment on above: Performed By: #### M G, CMP, TSH, T7, BNP #### [facility] [address] [place] [address] Dr. Glenys Holly MCV (RBC) [Entitic vol] 91.6 fL Normal 81.0-99.0 [facility] Comment on above: Performed By: #### M G, CMP, TSH, T7, BNP #### [facility] [address] [place] [address] Dr. Glenys Holly MONO # 0.8 103/ul Normal 0.3-0.8 [facility] Comment on above: Performed By: #### M G, CMP, TSH, T7, BNP #### [facility] [address] [place] [address] Dr. Glenys Holly Monocytes/100 WBC (Bld) 5.2 % Normal 1.7-12.0 [facility] Comment on above: Performed By: #### M G, CMP, TSH, T7, BNP #### [facility] [address] [place] [address] Dr. Glenys Holly NEUT # 14.0 103/ul Critically high 1.4-6.5 [facility] Comment on above: Performed By: #### M G, CMP, TSH, T7, BNP #### [facility] [address] [place] [address] Dr. Glenys Holly Neutrophils/100 WBC (Bld) 87.2 % Critically high 43.0-75.0 [facility] Comment on above: Performed By: #### M G, CMP, TSH, T7, BNP #### [facility] [address] [place] [address] Dr. Glenys Holly Platelet mean volume (Bld) [Entitic vol] 11.7 fL Normal 9.5-13.5 [facility] Comment on above: Performed By: #### M G, CMP, TSH, T7, BNP #### [facility] [address] [place] [address] Dr. Glenys Holly PLT 285 103/ul Normal 150-450 [facility] Comment on above: Performed By: #### M G, CMP, TSH, T7, BNP #### [facility] [address] [place] [address] Dr. Glenys Holly RBC 4.15 106/ul Critically low 4.20-5.40 [facility] Comment on above: Performed By: #### M G, CMP, TSH, T7, BNP #### [facility] [address] [place] [address] Dr. Glenys Holly WBC 16.0 103/ul Critically high 4.0-11.0 [facility] Comment on above: Performed By: #### M G, CMP, TSH, T7, BNP #### [facility] [address] [place] [address] Dr. Glenys Holly PROF 14(COMP METB)on 022 Albumin [Mass/Vol] 2.7 g/dL Critically low 3.4-5.0 Th e [facility] Comment on above: Performed By: #### C MP, HSTROPN, BNP #### [facility] [address] [place] [address] Dr. Glenys Holly Albumin/Globulin [Mass ratio] 1.0 {ratio} Normal [facility] Comment on above: Performed By: #### C MP, HSTROPN, BNP #### [facility] [address] [place] [address] Dr. Glenys Holly ALP [Catalytic activity/Vol] 73 U/L Normal 46-116 [facility] Comment on above: Performed By: #### C MP, HSTROPN, BNP #### [facility] [address] [place] [address] Dr. Glenys Holly ALT [Catalytic activity/Vol] 11 U/L Critically low 14-59 [facility] Comment on above: Performed By: #### C MP, HSTROPN, BNP #### [facility] [address] [place] [address] Dr. Glenys Holly Anion gap [Moles/Vol] 10.5 mmol/L Normal [facility] Comment on above: Performed By: #### C MP, HSTROPN, BNP #### [facility] [address] [place] [address] Dr. Glenys Holly AST [Catalytic activity/Vol] 21 U/L Normal 15-37 [facility] Comment on above: Performed By: #### C MP, HSTROPN, BNP #### [facility] [address] [place] [address] Dr. Glenys Holly Bilirubin [Mass/Vol] 0.3 mg/dL Normal 0.2-1.0 [facility] Comment on above: Performed By: #### C MP, HSTROPN, BNP #### [facility] [address] [address] [address] Glenys Holly Calcium [Mass/Vol] 8.6 mg/dL Normal 8.5-10.1 [facility] Comment on above: Performed By: #### C MP, HSTROPN, BNP #### [facility] [address] [address] [address] Glenys Holly Chloride [Moles/Vol] 106 mmol/L Normal 98-107 [facility] Comment on above: Performed By: #### C MP, HSTROPN, BNP #### [facility] [address] [address] [address] Glenys Holly CO2 [Moles/Vol] 29.0 mmol/L Normal 21.0-32.0 [facility] Comment on above: Performed By: #### C MP, HSTROPN, BNP #### [facility] [address] [place] [address] Dr. Glenys Holly Creatinine [Mass/Vol] 0.88 mg/dL Normal 0.55-1.02 [facility] Comment on above: Performed By: #### C MP, HSTROPN, BNP #### [facility] [address] [place] [address] Dr. Glenys Holly EGFR-AF S[place]ESE >60 Normal >=60 [facility] Comment on above: Performed By: #### C MP, HSTROPN, BNP #### [facility] [address] [place] [address] Dr. Glenys Holly EGFR-NON AF [place] >60 Normal >=60 [facility] Comment on above: Performed By: #### C MP, HSTROPN, BNP #### [facility] [address] [address] [address] Glenys Holly Globulin (S) [Mass/Vol] 2.6 g/dL Normal [facility] Comment on above: Performed By: #### C MP, HSTROPN, BNP #### [facility] [address] [address] [address] Glenys Holly Glucose [Mass/Vol] 116 mg/dL Critically high 74-106 [facility] Comment on above: Performed By: #### C MP, HSTROPN, BNP #### [facility] [address] [place] [address] Dr. Glenys Holly Potassium [Moles/Vol] 3.5 mmol/L Normal 3.5-5.1 [facility] Comment on above: Performed By: #### C MP, HSTROPN, BNP #### [facility] [address] [place] [address] Dr. Glenys Holly Protein [Mass/Vol] 5.3 g/dL Critically low 6.4-8.2 Th [facility] Comment on above: Performed By: #### C MP, HSTROPN, BNP #### [facility] [address] [place] [address] Dr. Glenys Holly Sodium [Moles/Vol] 142 mmol/L Normal 136-145 [facility] Comment on above: Performed By: #### C MP, HSTROPN, BNP #### [facility] [address] [place] [address] Dr. Glenys Holly Urea nitrogen [Mass/Vol] 23.0 mg/dL Critically high 7.0-18.0 [facility] Comment on above: Performed By: #### C MP, HSTROPN, BNP #### [facility] [address] [place] [address] Dr. Glenys Holly Urea nitrogen/Creatinine [Mass ratio] 26.1 mg/mg Normal [facility] Comment on above: Performed By: #### C MP, HSTROPN, BNP #### [facility] [address] [place] [address] Dr. Glenys Holly TROPONIN, HIGH SENSITIVITYon 05-08-2022 HSTROP 60.8 pg/mL Critically high 4.0-51.3 [facility] Comment on above: Result Comment: CUT- OFF POINTS HAVE BEEN ESTABLISHED BASED ON THE FOURTH UNIVERSAL DEFINITIONS OF MYOCARDIAL INFARCTION. THE UPPER REFERENCE LIMIT (URL) OF TROPONIN, DEFINED THE 99TH PERCENTILE OF cTnI DISTRIBUTION IN A REFERENCE POPULATION, HAS BEEN CONFIRMED THE DECISION THRESHOLD FOR VT DIAGNOSIS. Performed By: #### C MP, HSTROPN, BNP ####[facility] [address] [address]Dr. Glenys Holly BNPon 05-07-2022 Natriuretic peptide B (Bld) [Mass/Vol] 1476.0 pg/mL Normal <=1,800.0 [facility] Comment on above: Performed By: #### C MP, HSTROPN, BNP ####[facility] [address] [address]Dr. Glenys Holly CBC AUTO DIFFon 05-07-2022 BASO # 0.0 103/ul Normal 0.0-0.1 [facility] Comment on above: Performed By: #### M G, CMP, TSH, T7, BNP #### [facility] [address] [address] [address] Glenys Holly Basophils/100 WBC (Bld) 0.1 % Critically low 0.2-2.0 [facility] Comment on above: Performed By: #### M G, CMP, TSH, T7, BNP #### [facility] [address] [place] [address] Dr. Glenys Holly EO # 0.0 103/ul Normal 0.0-0.7 [facility] Comment on above: Performed By: #### M G, CMP, TSH, T7, BNP #### [facility] [address] [address] [address] Glenys Holly Eosinophils/100 WBC (Bld) 0.0 % Critically low 0.9-7.0 [facility] Comment on above: Performed By: #### M G, CMP, TSH, T7, BNP #### [facility] [address] [address] [address] Glenys Holly Erythrocyte distribution width (RBC) [Ratio] 16.3 % Critically high 11.0-15.0 [facility] Comment on above: Performed By: #### M G, CMP, TSH, T7, BNP #### [facility] [address] [place] [address] Dr. Glenys Holly Hematocrit (Bld) [Volume fraction] 34.1 % Critically low 36.0-48.0 [facility] Comment on above: Performed By: #### M G, CMP, TSH, T7, BNP #### [facility] [address] [place] [address] Dr. Glenys Holly Hemoglobin (Bld) [Mass/Vol] 11.2 g/dL Critically low 12.0-16.0 [facility] Comment on above: Performed By: #### M G, CMP, TSH, T7, BNP #### [facility] [address] [place] [address] Dr. Glenys Holly IG # 0.22 10e3/ul Critically high 0.00-0.03 [facility] Comment on above: Performed By: #### M G, CMP, TSH, T7, BNP #### [facility] [address] [place] [address] Dr. Glenys Holly IG % 1.0 % Critically high 0.0-0.5 [facility] Comment on above: Performed By: #### M G, CMP, TSH, T7, BNP #### [facility] [address] [place] [address] Dr. Glenys Holly LYMPH # 1.3 103/ul Normal 1.2-3.8 [facility] Comment on above: Performed By: #### M G, CMP, TSH, T7, BNP #### [facility] [address] [place] [address] Dr. Glenys Holly Lymphocytes/100 WBC (Bld) 6.0 % Critically low 20.5-60.0 [facility] Comment on above: Performed By: #### M G, CMP, TSH, T7, BNP #### [facility] [address] [place] [address] Dr. Glenys Holly MANUAL DIFF REQ NO Normal [facility] Comment on above: Performed By: #### M G, CMP, TSH, T7, BNP #### [facility] [address] [place] [address] Dr. Glenys Holly MCH (RBC) [Entitic mass] 30.7 pg Normal 26.7-34.0 [facility] Comment on above: Performed By: #### M G, CMP, TSH, T7, BNP #### [facility] [address] [place] [address] Dr. Glenys Holly MCHC (RBC) [Mass/Vol] 32.8 g/dL Normal 29.9-35.2 [facility] Comment on above: Performed By: #### M G, CMP, TSH, T7, BNP #### [facility] [address] [place] [address] Dr. Glenys Holly MCV (RBC) [Entitic vol] 93.4 fL Normal 81.0-99.0 [facility] Comment on above: Performed By: #### M G, CMP, TSH, T7, BNP #### [facility] [address] [place] [address] Dr. Glenys Holly MONO # 1.1 103/ul Critically high 0.3-0.8 [facility] Comment on above: Performed By: #### M G, CMP, TSH, T7, BNP #### [facility] [address] [place] [address] Dr. Glenys Holly Monocytes/100 WBC (Bld) 4.8 % Normal 1.7-12.0 [facility] Comment on above: Performed By: #### M G, CMP, TSH, T7, BNP #### [facility] [address] [place] [address] Dr. Glenys Holly NEUT # 19.4 103/ul Critically high 1.4-6.5 [facility] Comment on above: Performed By: #### M G, CMP, TSH, T7, BNP #### [facility] [address] [place] [address] Dr. Glenys Holly Neutrophils/100 WBC (Bld) 88.1 % Critically high 43.0-75.0 [facility] Comment on above: Performed By: #### M G, CMP, TSH, T7, BNP #### [facility] [address] [place] [address] Dr. Glenys Holly Platelet mean volume (Bld) [Entitic vol] 11.6 fL Normal 9.5-13.5 [facility] Comment on above: Performed By: #### M G, CMP, TSH, T7, BNP #### [facility] [address] [address] [address] Glenys Holly PLT 309 103/ul Normal 150-450 [facility] Comment on above: Performed By: #### M G, CMP, TSH, T7, BNP #### [facility] [address] [address] [address] Glenys Holly RBC 3.65 106/ul Critically low 4.20-5.40 [facility] Comment on above: Performed By: #### M G, CMP, TSH, T7, BNP #### [facility] [address] [address] [address] Glenys Holly WBC 22.0 103/ul Critically high 4.0-11.0 [facility] Comment on above: Performed By: #### M G, CMP, TSH, T7, BNP #### [facility] [address] [address] [address] Glenys Holly PROF 14(COMP METB)on 022 Albumin [Mass/Vol] 2.5 g/dL Critically low 3.4-5.[address] [facility] Comment on above: Performed By: #### C MP, HSTROPN, BNP ####[facility] [address] [address]DrRatna Holly Albumin/Globulin [Mass ratio] 1.0 {ratio} Normal [facility] Comment on above: Performed By: #### C MP, HSTROPN, BNP ####[facility] [address] [address]DrRatna Holly ALP [Catalytic activity/Vol] 69 U/L Normal 46-116 [facility] Comment on above: Performed By: #### C MP, HSTROPN, BNP ####[facility] [address] [address]DrRatna Holly ALT [Catalytic activity/Vol] 12 U/L Critically low 14-59 [facility] Comment on above: Performed By: #### C MP, HSTROPN, BNP ####[facility] [address] [address]Dr. Glenys Holly Anion gap [Moles/Vol] 10.9 mmol/L Normal [facility] Comment on above: Performed By: #### C MP, HSTROPN, BNP ####[facility] [address] [address]Dr. Glenys Holly AST [Catalytic activity/Vol] 25 U/L Normal 15-37 [facility] Comment on above: Performed By: #### C MP, HSTROPN, BNP ####[facility] [address] [place], [place] [address]Dr. Glenys Holly Bilirubin [Mass/Vol] 0.1 mg/dL Critically low 0.2-1.0 [facility] Comment on above: Performed By: #### C MP, HSTROPN, BNP ####[facility] [address] [place], [place] [address]Dr. Glenys Holly Calcium [Mass/Vol] 9.1 mg/dL Normal 8.5-10.1 [facility] Comment on above: Performed By: #### C MP, HSTROPN, BNP ####[facility] [address] [place], [place] [address]Dr. Glenys Holly Chloride [Moles/Vol] 110 mmol/L Critically high 98-107 [facility] Comment on above: Performed By: #### C MP, HSTROPN, BNP ####[facility] [address] [place], [place] [address]Dr. Glenys Holly CO2 [Moles/Vol] 24.8 mmol/L Normal 21.0-32.0 [facility] Comment on above: Performed By: #### C MP, HSTROPN, BNP ####[facility] [address] [place], [place] [address]Dr. Glenys Holly Creatinine [Mass/Vol] 0.87 mg/dL Normal 0.55-1.02 [facility] Comment on above: Performed By: #### C MP, HSTROPN, BNP ####[facility] [address] [place], [place] [address]Dr. Yilan Holly EGFR-AF [place] >60 Normal >=60 [facility] Comment on above: Performed By: #### C MP, HSTROPN, BNP ####[facility] [address] [address]Dr. Glenys Holly EGFR-NON AF [place] >60 Normal >=60 [facility] Comment on above: Performed By: #### C MP, HSTROPN, BNP ####[facility] [address] [address]Dr. Glenys Hloly Globulin (S) [Mass/Vol] 2.5 g/dL Normal [facility] Comment on above: Performed By: #### C MP, HSTROPN, BNP ####[facility] [address] [place], [place] [address]Dr. Glenys Holly Glucose [Mass/Vol] 128 mg/dL Critically high 74-106 T [facility] Comment on above: Performed By: #### C MP, HSTROPN, BNP ####[facility] [address] [place], [place] [address]Dr. Glenys Holly Potassium [Moles/Vol] 4.7 mmol/L Normal 3.5-5.1 [facility] Comment on above: Performed By: #### C MP, HSTROPN, BNP ####[facility] [address] [address]Dr. Glenys Holly Protein [Mass/Vol] 5.0 g/dL Critically low 6.4-8.2 [facility] Comment on above: Performed By: #### C MP, HSTROPN, BNP ####[facility] [address] [address]Dr. Glenys Holly Sodium [Moles/Vol] 141 mmol/L Normal 136-145 [facility] Comment on above: Performed By: #### C MP, HSTROPN, BNP ####[facility] [address] [address]Dr. Glenys Holly Urea nitrogen [Mass/Vol] 28.0 mg/dL Critically high 7.0-18.0 [facility] Comment on above: Performed By: #### C MP, HSTROPN, BNP ####[facility] [address] [place], [place] [address]Fp. Glenys Holly Urea nitrogen/Creatinine [Mass ratio] 32.2 mg/mg Normal [facility] Comment on above: Performed By: #### C MP, HSTROPN, BNP ####[facility] [address] [place], [place] [address]Zi. Glenys Holly TROPONIN, HIGH SENSITIVITYon 05-07-2022 HSTROP 78.5 pg/mL Critically high 4.0-51.3 [facility] Comment on above: Result Comment: CUT- OFF POINTS HAVE BEEN ESTABLISHED BASED ON THE FOURTH UNIVERSAL DEFINITIONS OF MYOCARDIAL INFARCTION. THE UPPER REFERENCE LIMIT (URL) OF TROPONIN, DEFINED THE 99TH PERCENTILE OF cTnI DISTRIBUTION IN A REFERENCE POPULATION, HAS BEEN CONFIRMED THE DECISION THRESHOLD FOR VT DIAGNOSIS. Performed By: #### C MP, HSTROPN, BNP ####[facility] [address] [place], [place] [address]Ox. Glenys Holly XR CHEST 2 Von 05-07-2022 [...] [place] Date: 2022-05-07 10:34 Normal [facility] BNPon 05-06-2022 Natriuretic peptide B (Bld) [Mass/Vol] 1143.0 pg/mL Normal <=1,800.0 [facility] Comment on above: Performed By: #### C MP, BNP ####[facility] [address] [address]Dr. Glenys Holly CBC AUTO DIFFon 05-06-2022 BASO # 0.0 103/ul Normal 0.0-0.1 [facility] Comment on above: Performed By: #### M G, CMP, TSH, T7, BNP #### [facility] [address] [address] [address] Glenys Holly Basophils/100 WBC (Bld) 0.1 % Critically low 0.2-2.0 [facility] Comment on above: Performed By: #### M G, CMP, TSH, T7, BNP #### [facility] [address] [address] [address] Glenys Holly EO # 0.0 103/ul Normal 0.0-0.7 [facility] Comment on above: Performed By: #### M G, CMP, TSH, T7, BNP #### [facility] [address] [place] [address] Dr. Glenys Holly Eosinophils/100 WBC (Bld) 0.0 % Critically low 0.9-7.0 [facility] Comment on above: Performed By: #### M G, CMP, TSH, T7, BNP #### [facility] [address] [address] [address] Glenys Holly Erythrocyte distribution width (RBC) [Ratio] 15.8 % Critically high 11.0-15.0 [facility] Comment on above: Performed By: #### M G, CMP, TSH, T7, BNP #### [facility] [address] [address] [address] Glenys Holly Hematocrit (Bld) [Volume fraction] 36.7 % Normal 36.0-48.0 [facility] Comment on above: Performed By: #### M G, CMP, TSH, T7, BNP #### [facility] [address] [place] [address] Dr. Glenys Holly Hemoglobin (Bld) [Mass/Vol] 12.3 g/dL Normal 12.0-16.0 [facility] Comment on above: Performed By: #### M G, CMP, TSH, T7, BNP #### [facility] [address] [place] [address] Dr. Glenys Holly IG # 0.10 10e3/ul Critically high 0.00-0.03 [facility] Comment on above: Performed By: #### M G, CMP, TSH, T7, BNP #### [facility] [address] [place] [address] Dr. Glenys Holly IG % 0.5 % Normal 0.0-0.5 [facility] Comment on above: Performed By: #### M G, CMP, TSH, T7, BNP #### [facility] [address] [place] [address] Dr. Glenys Holly LYMPH # 1.4 103/ul Normal 1.2-3.8 [facility] Comment on above: Performed By: #### M G, CMP, TSH, T7, BNP #### [facility] [address] [place] [address] Dr. Glenys Holly Lymphocytes/100 WBC (Bld) 7.2 % Critically low 20.5-60.0 [facility] Comment on above: Performed By: #### M G, CMP, TSH, T7, BNP #### [facility] [address] [place] [address] Dr. Glenys Holly MANUAL DIFF REQ NO Normal [facility] Comment on above: Performed By: #### M G, CMP, TSH, T7, BNP #### [facility] [address] [place] [address] Dr. Glenys Holly MCH (RBC) [Entitic mass] 30.9 pg Normal 26.7-34.0 [facility] Comment on above: Performed By: #### M G, CMP, TSH, T7, BNP #### [facility] [address] [place] [address] Dr. Glenys Holly MCHC (RBC) [Mass/Vol] 33.5 g/dL Normal 29.9-35.2 [facility] Comment on above: Performed By: #### M G, CMP, TSH, T7, BNP #### [facility] [address] [place] [address] Dr. Glenys Holly MCV (RBC) [Entitic vol] 92.2 fL Normal 81.0-99.0 [facility] Comment on above: Performed By: #### M G, CMP, TSH, T7, BNP #### [facility] [address] [place] [address] Dr. Glenys Holly MONO # 0.9 103/ul Critically high 0.3-0.8 [facility] Comment on above: Performed By: #### M G, CMP, TSH, T7, BNP #### [facility] [address] [place] [address] Dr. Glenys Holly Monocytes/100 WBC (Bld) 4.6 % Normal 1.7-12.0 [facility] Comment on above: Performed By: #### M G, CMP, TSH, T7, BNP #### [facility] [address] [place] [address] Dr. Glenys Holly NEUT # 17.4 103/ul Critically high 1.4-6.5 [facility] Comment on above: Performed By: #### M G, CMP, TSH, T7, BNP #### [facility] [address] [place] [address] Dr. Glenys Holly Neutrophils/100 WBC (Bld) 87.6 % Critically high 43.0-75.0 [facility] Comment on above: Performed By: #### M G, CMP, TSH, T7, BNP #### [facility] [address] [place] [address] Dr. Glenys Holly Platelet mean volume (Bld) [Entitic vol] 11.2 fL Normal 9.5-13.5 [facility] Comment on above: Performed By: #### M G, CMP, TSH, T7, BNP #### [facility] [address] [place] [address] Dr. Glenys Holly PLT 310 103/ul Normal 150-450 [facility] Comment on above: Performed By: #### M G, CMP, TSH, T7, BNP #### [facility] [address] [address] [address] Glenys Holly RBC 3.98 106/ul Critically low 4.20-5.40 [facility] Comment on above: Performed By: #### M G, CMP, TSH, T7, BNP #### [facility] [address] [place] [address] Dr. Glenys Holly WBC 19.8 103/ul Critically high 4.0-11.0 [facility] Comment on above: Performed By: #### M G, CMP, TSH, T7, BNP #### [facility] [address] [address] [address] Glenys Holly LACTATE/LACTIC ACIDon 2021 Lactate [Moles/Vol] 1.1 mmol/L Normal 0.4-1.9 [facility] Comment on above: Performed By: #### M G, CMP, TSH, T7, BNP #### [facility] [address] [place] [address] Dr. Glenys Holly POINT OF CARE GLUCOSEon 04-12 Glucose [Mass/Vol] 164 mg/dL Critically high 74-106 [facility] Comment on above: Performed By: #### M G, CMP, TSH, T7, BNP #### [facility] [address] [place] [address] Dr. Glenys Holly PROF 14(COMP METB)on 022 Albumin [Mass/Vol] 2.6 g/dL Critically low 3.4-5.[address] [facility] Comment on above: Performed By: #### C MP, BNP ####[facility] [address] [address]Dr. Glenys Holly Albumin/Globulin [Mass ratio] 1.0 {ratio} Normal [facility] Comment on above: Performed By: #### C MP, BNP ####[facility] [address] [address]Dr. Glenys Holly ALP [Catalytic activity/Vol] 88 U/L Normal 46-116 [facility] Comment on above: Performed By: #### C MP, BNP ####[facility] [address] [place], [place] [address]Dr. Glenys Holly ALT [Catalytic activity/Vol] 1 U/L Critically low 14-59 [facility] Comment on above: Performed By: #### C MP, BNP ####[facility] [address] [place], [place] [address]Dr. Glenys Holly Anion gap [Moles/Vol] 9.9 mmol/L Normal [facility] Comment on above: Performed By: #### C MP, BNP ####[facility] [address] [place], [place] [address]Dr. Glenys Holly AST [Catalytic activity/Vol] 19 U/L Normal 15-37 [facility] Comment on above: Performed By: #### C MP, BNP ####[facility] [address] [place], [place] [address]Dr. Glenys Holly Bilirubin [Mass/Vol] 0.2 mg/dL Normal 0.2-1.0 [facility] Comment on above: Performed By: #### C MP, BNP ####[facility] [address] [place], [place] [address]Dr. Glenys Holly Calcium [Mass/Vol] 8.7 mg/dL Normal 8.5-10.1 [facility] Comment on above: Performed By: #### C MP, BNP ####[facility] [address] [place], [place] [address]Dr. Glenys Holly Chloride [Moles/Vol] 108 mmol/L Critically high 98-107 [facility] Comment on above: Performed By: #### C MP, BNP ####[facility] [address] [place], [place] [address]Dr. Glenys Holly CO2 [Moles/Vol] 25.2 mmol/L Normal 21.0-32.0 [facility] Comment on above: Performed By: #### C MP, BNP ####[facility] [address] [place], [place] [address]Dr. Glenys Holly Creatinine [Mass/Vol] 0.80 mg/dL Normal 0.55-1.02 [facility] Comment on above: Performed By: #### C MP, BNP ####[facility] [address] [id number]. Glenys Holly EGFR-AF S[place]ESE >60 Normal >=60 [facility] Comment on above: Performed By: #### C MP, BNP ####[facility] [address] [address]Dr. Glenys Holly EGFR-NON AF [place] >60 Normal >=60 [facility] Comment on above: Performed By: #### C MP, BNP ####[facility] [address] [address]Dr. Glenys Holly Globulin (S) [Mass/Vol] 2.7 g/dL Normal [facility] Comment on above: Performed By: #### C MP, BNP ####[facility] [address] [place], [place] [address]Dr. Glenys Holly Glucose [Mass/Vol] 123 mg/dL Critically high 74-106 [facility] Comment on above: Performed By: #### C MP, BNP ####[facility] [address] [place], [place] [address]Dr. Glenys Holly Potassium [Moles/Vol] 4.1 mmol/L Normal 3.5-5.1 [facility] Comment on above: Performed By: #### C MP, BNP ####[facility] [address] [place], [place] [address]Dr. Glenys Holly Protein [Mass/Vol] 5.3 g/dL Critically low 6.4-8.2 [facility] Comment on above: Performed By: #### C MP, BNP ####[facility] [address] [address]Dr. Glenys Holly Sodium [Moles/Vol] 139 mmol/L Normal 136-145 [facility] Comment on above: Performed By: #### C MP, BNP ####[facility] [address] [place], [place] [address]Dr. Glenys Holly Urea nitrogen [Mass/Vol] 22.0 mg/dL Critically high 7.0-18.0 [facility] Comment on above: Performed By: #### C MP, BNP ####[facility] [address] [id number]. Glenys Holly Urea nitrogen/Creatinine [Mass ratio] 27.5 mg/mg Normal [facility] Comment on above: Performed By: #### C MP, BNP ####[facility] [address] [place], [place] [address]Dr. Glenys Holly T3, TOTAL (TRIIODOTHYRONINE) on 05-06-2022 T3, TOTAL 69 ng/dL Critically low 71-180 [facility] Comment on above: Performed By: #### M G, CMP, TSH, T7, BNP #### [facility] [address] [address] [address] Glenys Holly TROPONIN, HIGH SENSITIVITYon 05-06-2022 HSTROP 141.0 pg/mL Critically high 4.0-51.3 [facility] Comment on above: Result Comment: CUT- OFF POINTS HAVE BEEN ESTABLISHED BASED ON THE FOURTH UNIVERSAL DEFINITIONS OF MYOCARDIAL INFARCTION. THE UPPER REFERENCE LIMIT (URL) OF TROPONIN, DEFINED THE 99TH PERCENTILE OF cTnI DISTRIBUTION IN A REFERENCE POPULATION, HAS BEEN CONFIRMED THE DECISION THRESHOLD FOR VT DIAGNOSIS. Performed By: #### M G, CMP, TSH, T7, BNP #### [facility] [address] [address] [address] Glenys Holly AMYLASEon 05-05-2022 Amylase [Catalytic activity/Vol] 26 U/L Normal 25-115 [facility] Comment on above: Performed By: #### M G, CMP, TSH, T7, BNP #### [facility] [address] [address] [address] Glenys Holly BNPon 05-05-2022 Natriuretic peptide B (Bld) [Mass/Vol] 811.0 pg/mL Normal <=1,800.0 [facility] Comment on above: Performed By: #### M G, CMP, TSH, T7, BNP #### [facility] [address] [address] [address] Glenys Holly CARDIAC ADEEL 3-6on 2 CK [Catalytic activity/Vol] 33 U/L Normal 26-192 [facility] Comment on above: Performed By: #### C MREP ####[facility] [address] [id number]. Glenys Holly CK.MB [Mass/Vol] 1.13 ng/mL Normal <=3.60 [facility] Comment on above: Performed By: #### C MREP ####[facility] [address] [address]Dr. Glenys Holly HSTROP 164.3 pg/mL Critically high 4.0-51.3 [facility] Comment on above: Result Comment: CUT- OFF POINTS HAVE BEEN ESTABLISHED BASED ON THE FOURTH UNIVERSAL DEFINITIONS OF MYOCARDIAL INFARCTION. THE UPPER REFERENCE LIMIT (URL) OF TROPONIN, DEFINED THE 99TH PERCENTILE OF cTnI DISTRIBUTION IN A REFERENCE POPULATION, HAS BEEN CONFIRMED THE DECISION THRESHOLD FOR VT DIAGNOSIS. Performed By: #### C MREP ####[facility] [address] [address]DrRatna Holly CK [Catalytic activity/Vol] 38 U/L Normal 26-192 [facility] Comment on above: Performed By: #### M G, CMP, TSH, T7, BNP #### [facility] [address] [address] [address] Glenys Holly CK.MB [Mass/Vol] 0.91 ng/mL Normal <=3.60 [facility] Comment on above: Performed By: #### M G, CMP, TSH, T7, BNP #### [facility] [address] [address] [address] Glenys Holly HSTROP 178.2 pg/mL Critically high 4.0-51.3 [facility] Comment on above: Result Comment: CUT- OFF POINTS HAVE BEEN ESTABLISHED BASED ON THE FOURTH UNIVERSAL DEFINITIONS OF MYOCARDIAL INFARCTION. THE UPPER REFERENCE LIMIT (URL) OF TROPONIN, DEFINED THE 99TH PERCENTILE OF cTnI DISTRIBUTION IN A REFERENCE POPULATION, HAS BEEN CONFIRMED THE DECISION THRESHOLD FOR VT DIAGNOSIS. Performed By: #### M G, CMP, TSH, T7, BNP #### [facility] [address] [address] [address] Glenys Holly CARDIAC ADEEL ADMITon 022 CK [Catalytic activity/Vol] 29 U/L Normal 26-192 [facility] Comment on above: Performed By: #### M G, CMP, TSH, T7, BNP #### [facility] [address] [address] [address] Glenys Holly CK.MB [Mass/Vol] 0.73 ng/mL Normal <=3.60 [facility] Comment on above: Performed By: #### M G, CMP, TSH, T7, BNP #### [facility] [address] [address] [address] Glenys Holly HSTROP 191.6 pg/mL Critically high 4.0-51.3 [facility] Comment on above: Result Comment: CUT- OFF POINTS HAVE BEEN ESTABLISHED BASED ON THE FOURTH UNIVERSAL DEFINITIONS OF MYOCARDIAL INFARCTION. THE UPPER REFERENCE LIMIT (URL) OF TROPONIN, DEFINED THE 99TH PERCENTILE OF cTnI DISTRIBUTION IN A REFERENCE POPULATION, HAS BEEN CONFIRMED THE DECISION THRESHOLD FOR VT DIAGNOSIS. Performed By: #### M G, CMP, TSH, T7, BNP #### [facility] [address] [place] [address] Dr. Glenys Holly NEO 79 ng/mL Normal 9-82 [facility] Comment on above: Performed By: #### M G, CMP, TSH, T7, BNP #### [facility] [address] [place] [address] Dr. Glenys Holly CBC W MANUAL DIFFon 05-05-20 22 ANISOCYTOSIS 1+ Normal [facility] Comment on above: Performed By: #### M G, CMP, TSH, T7, BNP #### [facility] [address] [place] [address] Dr. Glenys Holly ATYPICAL LYMPH # Normal [facility] Comment on above: Performed By: #### M G, CMP, TSH, T7, BNP #### [facility] [address] [place] [address] Dr. Glenys Holly ATYPICAL LYMPH % Normal [facility] Comment on above: Performed By: #### M G, CMP, TSH, T7, BNP #### [facility] [address] [place] [address] Dr. Glenys Holly BAND # 0.2 103/ul Normal 0.0-0.3 [facility] Comment on above: Performed By: #### M G, CMP, TSH, T7, BNP #### [facility] [address] [place] [address] Dr. Glenys Holly BAND % 1 % Normal 0-5 [facility] Comment on above: Performed By: #### M G, CMP, TSH, T7, BNP #### [facility] [address] [place] [address] Dr. Glenys RAUSCHOM # 0.00 103/ul Normal 0.00-0.10 [facility] Comment on above: Performed By: #### M G, CMP, TSH, T7, BNP #### [facility] [address] [place] [address] Dr. Glenys Holly BASOM % 0.0 % Critically low 0.2-2.0 [facility] Comment on above: Performed By: #### M G, CMP, TSH, T7, BNP #### [facility] [address] [place] [address] Dr. Glenys Holly BLAST # Normal [facility] Comment on above: Performed By: #### M G, CMP, TSH, T7, BNP #### [facility] [address] [place] [address] Dr. Glenys Holly BLAST % Normal [facility] Comment on above: Performed By: #### M G, CMP, TSH, T7, BNP #### [facility] [address] [place] [address] Dr. Glenys Holly CORRECTED WBC Normal 4.0-11.0 [facility] Comment on above: Performed By: #### M G, CMP, TSH, T7, BNP #### [facility] [address] [place] [address] Dr. Glenys Holly EOS # 0.00 103/ul Normal 0.00-0.70 [facility] Comment on above: Performed By: #### M G, CMP, TSH, T7, BNP #### [facility] [address] [place] [address] Dr. Glenys Holly EOS% 0.0 % Critically low 0.9-7.0 [facility] Comment on above: Performed By: #### M G, CMP, TSH, T7, BNP #### [facility] [address] [address] [address] Glenys Holly HCT 41.5 % Normal 36.0-48.0 [facility] Comment on above: Performed By: #### M G, CMP, TSH, T7, BNP #### [facility] [address] [place] [address] Dr. Glenys Holly HGB 14.2 g/dl Normal 12.0-16.0 [facility] Comment on above: Performed By: #### M G, CMP, TSH, T7, BNP #### [facility] [address] [place] [address] Dr. Glenys Holly LYMPHM # 0.96 103/ul Critically low 1.20-3.80 [facility] Comment on above: Performed By: #### M G, CMP, TSH, T7, BNP #### [facility] [address] [place] [address] Dr. Glenys Holly LYMPHM% 6.0 % Critically low 20.5-60.0 [facility] Comment on above: Performed By: #### M G, CMP, TSH, T7, BNP #### [facility] [address] [place] [address] Dr. Glenys Holly MCH 31.0 pg Normal 26.7-34.0 [facility] Comment on above: Performed By: #### M G, CMP, TSH, T7, BNP #### [facility] [address] [place] [address] Dr. Glenys Holly MCHC 34.2 g/dl Normal 29.9-35.2 [facility] Comment on above: Performed By: #### M G, CMP, TSH, T7, BNP #### [facility] [address] [place] [address] Dr. Glenys Holly MCV 90.6 fL Normal 81.0-99.0 [facility] Comment on above: Performed By: #### M G, CMP, TSH, T7, BNP #### [facility] [address] [address] [address] Glenys Holly METAMYELOCYTE # Normal [facility] Comment on above: Performed By: #### M G, CMP, TSH, T7, BNP #### [facility] [address] [address] [address] Glenys Holly METAMYELOCYTE % Normal [facility] Comment on above: Performed By: #### M G, CMP, TSH, T7, BNP #### [facility] [address] [place] [address] Dr. Glenys Holly MONOM# 2.56 103/ul Critically high 0.30-0.80 [facility] Comment on above: Performed By: #### M G, CMP, TSH, T7, BNP #### [facility] [address] [place] [address] Dr. Glenys Holly MONOM% 16.0 % Critically high 1.7-12.0 [facility] Comment on above: Performed By: #### M G, CMP, TSH, T7, BNP #### [facility] [address] [place] [address] Dr. Glenys Holly MPV 11.1 fL Normal 9.5-13.5 [facility] Comment on above: Performed By: #### M G, CMP, TSH, T7, BNP #### [facility] [address] [place] [address] Dr. Glenys Holly MYELOCYTE # Normal [facility] Comment on above: Performed By: #### M G, CMP, TSH, T7, BNP #### [facility] [address] [place] [address] Dr. Glenys Holly MYELOCYTE % Normal [facility] Comment on above: Performed By: #### M G, CMP, TSH, T7, BNP #### [facility] [address] [place] [address] Dr. Glenys Holly NRBC Normal [facility] Comment on above: Performed By: #### M G, CMP, TSH, T7, BNP #### [facility] [address] [place] [address] Dr. Glenys Holly PLT 352 103/ul Normal 150-450 [facility] Comment on above: Performed By: #### M G, CMP, TSH, T7, BNP #### [facility] [address] [address] [address] Glenys Holly RBC 4.58 106/ul Normal 4.20-5.40 [facility] Comment on above: Performed By: #### M G, CMP, TSH, T7, BNP #### [facility] [address] [place] [address] Dr. Glenys Holly RDW 15.2 % Critically high 11.0-15.0 [facility] Comment on above: Performed By: #### M G, CMP, TSH, T7, BNP #### [facility] [address] [place] [address] Dr. Glenys Holly SEG # 12.32 103/ul Critically high 1.40-6.50 [facility] Comment on above: Performed By: #### M G, CMP, TSH, T7, BNP #### [facility] [address] [place] [address] Dr. Glenys Holly SEG % 77.0 % Critically high 43.0-75.0 [facility] Comment on above: Performed By: #### M G, CMP, TSH, T7, BNP #### [facility] [address] [place] [address] Dr. Glenys Holly WBC 16.0 103/ul Critically high 4.0-11.0 [facility] Comment on above: Performed By: #### M G, CMP, TSH, T7, BNP #### [facility] [address] [place] [address] Dr. Glenys Holly CTA CHEST WO W CONon 05-05-2 022 CTA CHEST WO W CON EXAMINATION: [...] YULISSA TALBERT Date: 2022-05-05 09:32 Normal [facility] CULTURE BLOODon 05-05-2022 Microscopic examination of blood, culture Culture Observations: NO GROWTH AT 5 DAYS. Normal [facility] Comment on above: Performed By: #### B LDCX2 ####[facility] [address] [address]Dr. Glenys Holly Microscopic examination of blood, culture Culture Observations: NO GROWTH AT 5 DAYS. Normal [facility] Comment on above: Performed By: #### B LDCX1 ####[facility] [address] [address]Dr. Glenys Holly CULTURE URINEon 05-05-2022 CULTURE URINE Culture Observations : LIGHT GROWTH OF MIXED GENITAL NIDA. NO POTENTIAL PATHOGENS SEEN. Normal [facility] Comment on above: Performed By: #### U RCX ####[facility] [address] [place], [place] [address]Dr. Glenys Holly Covid-19 PCR (CVDTB)on 04-12 SARS-CoV-2 (COVID-19) RNA KINZA+probe Ql (Unsp spec) Not detected Normal NOT DETECTED [facility] Comment on above: Result Comment: When [...] for this test is supported by the Manager Emergency Department of Health and Human Service's declaration that [...] longer be used). Performed By: #### C [facility] #### [facility] [address] [place] [address] Dr. Glenys Holly ECHOCARDIO M/2D COMPLETEon 1 07-05-2021 ECHOCARDIO M/2D COMPLETE Patient: JUDITH KHAN Exam Date: 05/05/2022 : 1945 Gender:F Ordering : DR KAVON SAMS . Admission #: [id number] Family : Order #: [id number] CLICK HERE TO VIEW EXAM ECHOCARDIOGRAM REPORT [...] M.D. on 05/10/2022 at 13:12 Normal [facility] INFLUENZA A AND B AGon 05-05 [facility] SEE BELOW Normal [facility] Comment on above: Result Comment: Nega tive for Flu A protein angiten. Infection due to Flu A cannot be ruled out. Flu A angiten in the sample may be below the detection limit of the test. Performed By: #### M G, CMP, TSH, T7, BNP #### [facility] [address] [place] [address] Dr. Glenys Holly [facility] SEE BELOW [facility] Comment on above: Result Comment: Nega tive for Flu B protein antigen. Infection due to Flu B cannot be ruled out. Flu B antigen in the sample may be below the detection limit of the test. Performed By: #### M G, CMP, TSH, T7, BNP #### [facility] [address] [address] [address] Glenys Holly INFLUENZA A AG Negative Normal NEGATIVE SEE COMMENT [facility] Comment on above: Performed By: #### M G, CMP, TSH, T7, BNP #### [facility] [address] [place] [address] Dr. Glenys Holly INFLUENZA B AG Negative Normal NEGATIVE SEE COMMENT [facility] Comment on above: Performed By: #### M G, CMP, TSH, T7, BNP #### [facility] [address] [place] [address] Dr. Glenys Holly INTERNAL CONTROLS Within Normal Limits Normal Wi thin Normal Limits [facility] Comment on above: Performed By: #### M G, CMP, TSH, T7, BNP #### [facility] [address] [place] [address] Dr. Glenys Holly LACTATE/LACTIC ACIDon 2021 Lactate [Moles/Vol] 5.2 mmol/L Critically high 0.4-1.9 [facility] Comment on above: Performed By: #### M G, CMP, TSH, T7, BNP #### [facility] [address] [place] [address] Dr. Glenys Holly Lactate [Moles/Vol] 4.8 mmol/L Critically high 0.4-1.9 [facility] Comment on above: Performed By: #### M G, CMP, TSH, T7, BNP #### [facility] [address] [place] [address] Dr. Glenys Holly LIPASEon 05-05-2022 Lipase [Catalytic activity/Vol] 64.0 U/L Critically low 73.0-393.0 [facility] Comment on above: Performed By: #### M G, CMP, TSH, T7, BNP #### [facility] [address] [place] [address] Dr. Glenys Holly PROF CHEM 8 (BAS METB)on Anion gap [Moles/Vol] 12.6 mmol/L Normal [facility] Comment on above: Performed By: #### M G, CMP, TSH, T7, BNP #### [facility] [address] [place] [address] Dr. Glenys Holly Calcium [Mass/Vol] 9.6 mg/dL Normal 8.5-10.1 [facility] Comment on above: Performed By: #### M G, CMP, TSH, T7, BNP #### [facility] [address] [place] [address] Dr. Glenys Holly Chloride [Moles/Vol] 102 mmol/L Normal 98-107 [facility] Comment on above: Performed By: #### M G, CMP, TSH, T7, BNP #### [facility] [address] [place] [address] Dr. Glenys Holly CO2 [Moles/Vol] 26.3 mmol/L Normal 21.0-32.0 [facility] Comment on above: Performed By: #### M G, CMP, TSH, T7, BNP #### [facility] [address] [place] [address] Dr. Glenys Holly Creatinine [Mass/Vol] 1.00 mg/dL Normal 0.55-1.02 [facility] Comment on above: Performed By: #### M G, CMP, TSH, T7, BNP #### [facility] [address] [place] [address] Dr. Glenys Holly EGFR-AF SOUTH SUDANESE >60 Normal >=60 [facility] Comment on above: Performed By: #### M G, CMP, TSH, T7, BNP #### [facility] [address] [place] [address] Dr. Glenys Holly EGFR-NON AF SOUTH SUD[place]ESE 54 mL/min/1.73m2 Critically low >=60 [facility] Comment on above: Performed By: #### M G, CMP, TSH, T7, BNP #### [facility] [address] [place] [address] Dr. Glenys Holly Glucose [Mass/Vol] 128 mg/dL Critically high 74-106 T [facility] Comment on above: Performed By: #### M G, CMP, TSH, T7, BNP #### [facility] [address] [place] [address] Dr. Glenys Holly Potassium [Moles/Vol] 2.9 mmol/L Critically low 3.5-5.1 [facility] Comment on above: Performed By: #### M G, CMP, TSH, T7, BNP #### [facility] [address] [place] [address] Dr. Glenys Holly Sodium [Moles/Vol] 138 mmol/L Normal 136-145 [facility] Comment on above: Performed By: #### M G, CMP, TSH, T7, BNP #### [facility] [address] [place] [address] Dr. Glenys Holly Urea nitrogen [Mass/Vol] 20.0 mg/dL Critically high 7.0-18.0 [facility] Comment on above: Performed By: #### M G, CMP, TSH, T7, BNP #### [facility] [address] [place] [address] Dr. Glenys Holly Urea nitrogen/Creatinine [Mass ratio] 20.0 mg/mg Normal [facility] Comment on above: Performed By: #### M G, CMP, TSH, T7, BNP #### [facility] [address] [place] [address] Dr. Glenys Holly T4on 05-05-2022 T4 [Mass/Vol] 7.40 ug/dL Normal 4.80-13.90 [facility] Comment on above: Performed By: #### M G, CMP, TSH, T7, BNP #### [facility] [address] [place] [address] Dr. Glenys Holly TSHon 05-05-2022 TSH 0.198 uIU/mL Critically low 0.358-3.74 0 [facility] Comment on above: Performed By: #### M G, CMP, TSH, T7, BNP #### [facility] [address] [place] [address] Dr. Glenys Holly UA RANDOM W/MICROSCOPICon BACTERIA NONE SEEN Normal NONE SEEN [facility] Comment on above: Performed By: #### M G, CMP, TSH, T7, BNP #### [facility] [address] [place] [address] Dr. Glenys Holly Bilirubin Ql (U) Negative Normal NEGATIVE [facility] Comment on above: Performed By: #### M G, CMP, TSH, T7, BNP #### [facility] [address] [place] [address] Dr. Glenys Holly CAST NONE SEEN Normal NONE SEEN [facility] Comment on above: Performed By: #### M G, CMP, TSH, T7, BNP #### [facility] [address] [place] [address] Dr. Glenys Holly Clarity (U) SL CLOUDY Abnormal CLEAR [facility] Comment on above: Performed By: #### M G, CMP, TSH, T7, BNP #### [facility] [address] [place] [address] Dr. Glenys Holly Color (U) LT. YELLOW Normal YELLOW [facility] Comment on above: Performed By: #### M G, CMP, TSH, T7, BNP #### [facility] [address] [place] [address] Dr. Glenys Holly Crystals LM Nom (Urine sed) NONE SEEN Normal NONE SEEN [facility] Comment on above: Performed By: #### M G, CMP, TSH, T7, BNP #### [facility] [address] [place] [address] Dr. Glenys Holly Epithelial cells LM Ql (Urine sed) FEW Abnormal NONE SEEN /RARE [facility] Comment on above: Performed By: #### M G, CMP, TSH, T7, BNP #### [facility] [address] [place] [address] Dr. Glenys Holly Glucose Ql (U) Negative Normal NEGATIVE [facility] Comment on above: Performed By: #### M G, CMP, TSH, T7, BNP #### [facility] [address] [place] [address] Dr. Glenys Holly Hemoglobin Ql (U) MODERATE Abnormal NEGATIVE [facility] Comment on above: Performed By: #### M G, CMP, TSH, T7, BNP #### [facility] [address] [place] [address] Dr. Glenys Holly Ketones Ql (U) Negative Normal NEGATIVE [facility] Comment on above: Performed By: #### M G, CMP, TSH, T7, BNP #### [facility] [address] [place] [address] Dr. Glenys Holly LEUKOCYTES Negative Normal NEGATIVE [facility] Comment on above: Performed By: #### M G, CMP, TSH, T7, BNP #### [facility] [address] [place] [address] Dr. Glenys Holly MUCOUS NONE SEEN Normal NONE SEEN [facility] Comment on above: Performed By: #### M G, CMP, TSH, T7, BNP #### [facility] [address] [place] [address] Dr. Glenys Holly Nitrite Ql (U) Negative Normal NEGATIVE [facility] Comment on above: Performed By: #### M G, CMP, TSH, T7, BNP #### [facility] [address] [place] [address] Dr. Glenys Holly pH (U) 6.0 [pH] Normal 5-9 [facility] Comment on above: Performed By: #### M G, CMP, TSH, T7, BNP #### [facility] [address] [place] [address] Dr. Glenys Holly RBC 2-5 Abnormal 0-2 [facility] Comment on above: Performed By: #### M G, CMP, TSH, T7, BNP #### [facility] [address] [place] [address] Dr. Glenys Holly SPEC GRAVITY 1.010 Normal 1.005-<=1. 025 [facility] Comment on above: Performed By: #### M G, CMP, TSH, T7, BNP #### [facility] [address] [place] [address] Dr. Glenys Holly UA PROTEIN TRACE Normal NEGATIVE/ TRACE [facility] Comment on above: Performed By: #### M G, CMP, TSH, T7, BNP #### [facility] [address] [place] [address] Dr. Glenys Holly Urobilinogen Qn (U) 0.2 {Phoebe'U}/dL Normal 0.2 - 1. 0 [facility] Comment on above: Performed By: #### M G, CMP, TSH, T7, BNP #### [facility] [address] [address] [address] Glenys Holly WBC NONE SEEN Normal NONE SEEN [facility] Comment on above: Performed By: #### M G, CMP, TSH, T7, BNP #### [facility] [address] [address] [address] Glenys Holly XR CHEST 1 Von [...] SUPA LOZANO Date: 2022-05-05 07:41 Normal [facility] CULTURE URINEon 03-30-2022 CULTURE URINE Culture Observations : GREATER THAN 4 ORGANISMS PRESENT. PLEASE RESUBMIT CLEAN CATCH MID-STREAM URINE IF CLINICALLY INDICATED. Normal [facility] Comment on above: Performed By: #### U RCX ####[facility] [id number] [address]Dr. Glenys Holly CBC W MANUAL DIFFon 03-29-20 22 ATYPICAL LYMPH # Normal [facility] Comment on above: Performed By: #### M G, CMP, TSH, T7, BNP #### [facility] [address] [address] [address] Glenys Holly ATYPICAL LYMPH % Normal [facility] Comment on above: Performed By: #### M G, CMP, TSH, T7, BNP #### [facility] [address] [address] [address] Glenys Holly BAND # Normal 0.0-0.3 [facility] Comment on above: Performed By: #### M G, CMP, TSH, T7, BNP #### [facility] [address] [address] [address] Glenys Holly BAND % Normal 0-5 [facility] Comment on above: Performed By: #### M G, CMP, TSH, T7, BNP #### [facility] [address] [address] [address] Glenys Holly BASOM # 0.20 103/ul Critically high 0.00-0.10 [facility] Comment on above: Performed By: #### M G, CMP, TSH, T7, BNP #### [facility] [address] [place] [address] Dr. Glenys Holly BASOM % 1.0 % Normal 0.2-2.0 [facility] Comment on above: Performed By: #### M G, CMP, TSH, T7, BNP #### [facility] [address] [place] [address] Dr. Glenys Holly BLAST # Normal [facility] Comment on above: Performed By: #### M G, CMP, TSH, T7, BNP #### [facility] [address] [place] [address] Dr. Glenys Holly BLAST % Normal [facility] Comment on above: Performed By: #### M G, CMP, TSH, T7, BNP #### [facility] [address] [place] [address] Dr. Glenys Holly CORRECTED WBC Normal 4.0-11.0 [facility] Comment on above: Performed By: #### M G, CMP, TSH, T7, BNP #### [facility] [address] [place] [address] Dr. Glenys Holly EOS # 0.00 103/ul Normal 0.00-0.70 [facility] Comment on above: Performed By: #### M G, CMP, TSH, T7, BNP #### [facility] [address] [place] [address] Dr. Glenys Holly EOS% 0.0 % Critically low 0.9-7.0 [facility] Comment on above: Performed By: #### M G, CMP, TSH, T7, BNP #### [facility] [address] [address] [address] Glenys Holly HCT 45.0 % Normal 36.0-48.0 [facility] Comment on above: Performed By: #### M G, CMP, TSH, T7, BNP #### [facility] [address] [place] [address] Dr. Glenys Holly HGB 15.2 g/dl Normal 12.0-16.0 [facility] Comment on above: Performed By: #### M G, CMP, TSH, T7, BNP #### [facility] [address] [place] [address] Dr. Glenys Holly LYMPHM # 2.80 103/ul Normal 1.20-3.80 [facility] Comment on above: Performed By: #### M G, CMP, TSH, T7, BNP #### [facility] [address] [place] [address] Dr. Glenys Holly LYMPHM% 14.0 % Critically low 20.5-60.0 [facility] Comment on above: Performed By: #### M G, CMP, TSH, T7, BNP #### [facility] [address] [place] [address] Dr. Glenys Holly MCH 30.6 pg Normal 26.7-34.0 [facility] Comment on above: Performed By: #### M G, CMP, TSH, T7, BNP #### [facility] [address] [place] [address] Dr. Glenys Holly MCHC 33.8 g/dl Normal 29.9-35.2 [facility] Comment on above: Performed By: #### M G, CMP, TSH, T7, BNP #### [facility] [address] [place] [address] Dr. Glenys Holly MCV 90.7 fL Normal 81.0-99.0 [facility] Comment on above: Performed By: #### M G, CMP, TSH, T7, BNP #### [facility] [address] [place] [address] Dr. Glenys Holly METAMYELOCYTE # Normal [facility] Comment on above: Performed By: #### M G, CMP, TSH, T7, BNP #### [facility] [address] [place] [address] Dr. Glenys Holly METAMYELOCYTE % Normal [facility] Comment on above: Performed By: #### M G, CMP, TSH, T7, BNP #### [facility] [address] [address] [address] Glenys Holly MONOM# 2.40 103/ul Critically high 0.30-0.80 [facility] Comment on above: Performed By: #### M G, CMP, TSH, T7, BNP #### [facility] [address] [place] [address] Dr. Glenys Holly MONOM% 12.0 % Normal 1.7-12.0 [facility] Comment on above: Performed By: #### M G, CMP, TSH, T7, BNP #### [facility] [address] [place] [address] Dr. Glenys Holly MPV 11.5 fL Normal 9.5-13.5 [facility] Comment on above: Performed By: #### M G, CMP, TSH, T7, BNP #### [facility] [address] [place] [address] Dr. Glenys Holly MYELOCYTE # Normal [facility] Comment on above: Performed By: #### M G, CMP, TSH, T7, BNP #### [facility] [address] [place] [address] Dr. Glenys Holly MYELOCYTE % Normal [facility] Comment on above: Performed By: #### M G, CMP, TSH, T7, BNP #### [facility] [address] [place] [address] Dr. Glenys Holly NRBC Normal [facility] Comment on above: Performed By: #### M G, CMP, TSH, T7, BNP #### [facility] [address] [place] [address] Dr. Glenys Holly PLT 323 103/ul Normal 150-450 [facility] Comment on above: Performed By: #### M G, CMP, TSH, T7, BNP #### [facility] [address] [place] [address] Dr. Glenys Holly RBC 4.96 106/ul Normal 4.20-5.40 [facility] Comment on above: Performed By: #### M G, CMP, TSH, T7, BNP #### [facility] [address] [place] [address] Dr. Glenys Holly RDW 14.4 % Normal 11.0-15.0 [facility] Comment on above: Performed By: #### M G, CMP, TSH, T7, BNP #### [facility] [address] [place] [address] Dr. Glenys Holly SEG # 14.60 103/ul Critically high 1.40-6.50 [facility] Comment on above: Performed By: #### M G, CMP, TSH, T7, BNP #### [facility] [address] [place] [address] Dr. Glenys Holly SEG % 73.0 % Normal 43.0-75.0 [facility] Comment on above: Performed By: #### M G, CMP, TSH, T7, BNP #### [facility] [address] [place] [address] Dr. Glenys Holly WBC 20.0 103/ul Critically high 4.0-11.0 [facility] Comment on above: Performed By: #### M G, CMP, TSH, T7, BNP #### [facility] [address] [place] [address] ABD/PELV W CONon [...] RAMIRO SPENCER Date: 2022-03-29 11:27 Normal [facility] ER URINE PROFILEon 2 Bilirubin Ql (U) Negative Normal NEGATIVE [facility] Comment on above: Performed By: #### M G, CMP, TSH, T7, BNP #### [facility] [address] [address] [address] Glenys Holly Clarity (U) CLEAR Normal CLEAR [facility] Comment on above: Performed By: #### M G, CMP, TSH, T7, BNP #### [facility] [address] [address] [address] Glenys Holly Color (U) LT. YELLOW Normal YELLOW [facility] Comment on above: Performed By: #### M G, CMP, TSH, T7, BNP #### [facility] [address] [address] [address] Glenys Holly ERUAHD A micrscopic examina tion will be performed if indicated. Normal [facility] Comment on above: Performed By: #### M G, CMP, TSH, T7, BNP #### [facility] [address] [address] [address] Glenys Holly Glucose Ql (U) Negative Normal NEGATIVE [facility] Comment on above: Performed By: #### M G, CMP, TSH, T7, BNP #### [facility] [address] [address] [address] Glenys Holly Hemoglobin Ql (U) MODERATE Abnormal NEGATIVE [facility] Comment on above: Performed By: #### M G, CMP, TSH, T7, BNP #### [facility] [address] [address] [address] Glenys Holly Ketones Ql (U) 15 mg/dl Abnormal NEGATIVE [facility] Comment on above: Performed By: #### M G, CMP, TSH, T7, BNP #### [facility] [address] [place] [address] Dr. Glenys Holly LEUKOCYTES LARGE Abnormal NEGATIVE [facility] Comment on above: Performed By: #### M G, CMP, TSH, T7, BNP #### [facility] [address] [place] [address] Dr. Glenys Holly Nitrite Ql (U) Negative Normal NEGATIVE [facility] Comment on above: Performed By: #### M G, CMP, TSH, T7, BNP #### [facility] [address] [place] [address] Dr. Glenys Holly pH (U) 6.5 [pH] Normal 5-9 [facility] Comment on above: Performed By: #### M G, CMP, TSH, T7, BNP #### [facility] [address] [place] [address] Dr. Glenys Holly SPEC GRAVITY 1.015 Normal 1.005-<=1. 025 [facility] Comment on above: Performed By: #### M G, CMP, TSH, T7, BNP #### [facility] [address] [place] [address] Dr. Glenys Holly UA PROTEIN TRACE Normal NEGATIVE/ TRACE [facility] Comment on above: Performed By: #### M G, CMP, TSH, T7, BNP #### [facility] [address] [place] [address] Dr. Glenys Holly UR MICRO IND INDICATED Normal [facility] Comment on above: Performed By: #### M G, CMP, TSH, T7, BNP #### [facility] [address] [place] [address] Dr. Glenys Holly Urobilinogen Qn (U) 0.2 {Phoebe'U}/dL Normal 0.2 - 1. 0 [facility] Comment on above: Performed By: #### M G, CMP, TSH, T7, BNP #### [facility] [address] [address] [address] Glenys Holly LIPASEon 03-29-2022 Lipase [Catalytic activity/Vol] 62.0 U/L Critically low 73.0-393.0 [facility] Comment on above: Performed By: #### M G, CMP, TSH, T7, BNP #### [facility] [address] [address] [address] Glenys Holly PROF 14(COMP METB)on 022 Albumin [Mass/Vol] 3.7 g/dL Normal 3.4-5.0 [facility] Comment on above: Performed By: #### M G, CMP, TSH, T7, BNP #### [facility] [address] [place] [address] Dr. Glenys Holly Albumin/Globulin [Mass ratio] 1.2 {ratio} Normal [facility] Comment on above: Performed By: #### M G, CMP, TSH, T7, BNP #### [facility] [address] [place] [address] Dr. Glenys Holly ALP [Catalytic activity/Vol] 106 U/L Normal 46-116 [facility] Comment on above: Performed By: #### M G, CMP, TSH, T7, BNP #### [facility] [address] [place] [address] Dr. Glenys Holly ALT [Catalytic activity/Vol] 17 U/L Normal 14-59 [facility] Comment on above: Performed By: #### M G, CMP, TSH, T7, BNP #### [facility] [address] [place] [address] Dr. Glneys Holly Anion gap [Moles/Vol] 11.8 mmol/L Normal [facility] Comment on above: Performed By: #### M G, CMP, TSH, T7, BNP #### [facility] [address] [place] [address] Dr. Glenys Holly AST [Catalytic activity/Vol] 19 U/L Normal 15-37 [facility] Comment on above: Performed By: #### M G, CMP, TSH, T7, BNP #### [facility] [address] [place] [address] Dr. Glenys Holly Bilirubin [Mass/Vol] 0.8 mg/dL Normal 0.2-1.0 [facility] Comment on above: Performed By: #### M G, CMP, TSH, T7, BNP #### [facility] [address] [address] [address] Glenys Holly Calcium [Mass/Vol] 9.8 mg/dL Normal 8.5-10.1 [facility] Comment on above: Performed By: #### M G, CMP, TSH, T7, BNP #### [facility] [address] [place] [address] Dr. Glenys Holly Chloride [Moles/Vol] 101 mmol/L Normal 98-107 [facility] Comment on above: Performed By: #### M G, CMP, TSH, T7, BNP #### [facility] [address] [place] [address] Dr. Glenys Holly CO2 [Moles/Vol] 26.2 mmol/L Normal 21.0-32.0 [facility] Comment on above: Performed By: #### M G, CMP, TSH, T7, BNP #### [facility] [address] [place] [address] Dr. Glenys Holly Creatinine [Mass/Vol] 0.76 mg/dL Normal 0.55-1.02 [facility] Comment on above: Performed By: #### M G, CMP, TSH, T7, BNP #### [facility] [address] [place] [address] Dr. Glenys Holly EGFR-AF SOUTH [place]UDANESE >60 Normal >=60 [facility] Comment on above: Performed By: #### M G, CMP, TSH, T7, BNP #### [facility] [address] [place] [address] Dr. Glenys Holly EGFR-NON AF [place] >60 Normal >=60 [facility] Comment on above: Performed By: #### M G, CMP, TSH, T7, BNP #### [facility] [address] [place] [address] Dr. Glenys Holly Globulin (S) [Mass/Vol] 3.2 g/dL Normal [facility] Comment on above: Performed By: #### M G, CMP, TSH, T7, BNP #### [facility] [address] [place] [address] Dr. Glenys Holly Glucose [Mass/Vol] 103 mg/dL Normal 74-106 [facility] Comment on above: Performed By: #### M G, CMP, TSH, T7, BNP #### [facility] [address] [place] [address] Dr. Glenys Holly Potassium [Moles/Vol] 3.0 mmol/L Critically low 3.5-5.1 [facility] Comment on above: Performed By: #### M G, CMP, TSH, T7, BNP #### [facility] [address] [place] [address] Dr. Glenys Holly Protein [Mass/Vol] 6.9 g/dL Normal 6.4-8.2 [facility] Comment on above: Performed By: #### M G, CMP, TSH, T7, BNP #### [facility] [address] [place] [address] Dr. Glenys Holly Sodium [Moles/Vol] 136 mmol/L Normal 136-145 [facility] Comment on above: Performed By: #### M G, CMP, TSH, T7, BNP #### [facility] [address] [place] [address] Dr. Glenys Holly Urea nitrogen [Mass/Vol] 16.0 mg/dL Normal 7.0-18.0 [facility] Comment on above: Performed By: #### M G, CMP, TSH, T7, BNP #### [facility] [address] [place] [address] Dr. Glenys Holly Urea nitrogen/Creatinine [Mass ratio] 21.1 mg/mg Normal [facility] Comment on above: Performed By: #### M G, CMP, TSH, T7, BNP #### [facility] [address] [address] [address] Glenys Holly TROPONIN, HIGH SENSITIVITYon 03-29-2022 HSTROP 30.7 pg/mL Normal 4.0-51.3 [facility] Comment on above: Result Comment: CUT- OFF POINTS HAVE BEEN ESTABLISHED BASED ON THE FOURTH UNIVERSAL DEFINITIONS OF MYOCARDIAL INFARCTION. THE UPPER REFERENCE LIMIT (URL) OF TROPONIN, DEFINED THE 99TH PERCENTILE OF cTnI DISTRIBUTION IN A REFERENCE POPULATION, HAS BEEN CONFIRMED THE DECISION THRESHOLD FOR VT DIAGNOSIS. Performed By: #### M G, CMP, TSH, T7, BNP #### [facility] [address] [place] [address] Dr. Glenys Holly URINE MICROSCOPIC ONLYon BACTERIA MODERATE Abnormal NONE SEEN [facility] Comment on above: Performed By: #### M G, CMP, TSH, T7, BNP #### [facility] [address] [place] [address] Dr. Glenys Holly Bacteria identified Cx Nom (U) INDICATED Normal [facility] Comment on above: Performed By: #### M G, CMP, TSH, T7, BNP #### [facility] [address] [place] [address] Dr. Glenys Holly CA OX CRYSTALS MODERATE Normal [facility] Comment on above: Performed By: #### M G, CMP, TSH, T7, BNP #### [facility] [address] [address] [address] Glenys Holly CAST NONE SEEN Normal NONE SEEN [facility] Comment on above: Performed By: #### M G, CMP, TSH, T7, BNP #### [facility] [address] [address] [address] Glenys Holly Crystals LM Nom (Urine sed) SEEN Abnormal NONE SEEN [facility] Comment on above: Performed By: #### M G, CMP, TSH, T7, BNP #### [facility] [address] [address] [address] Glenys Holly Epithelial cells LM Ql (Urine sed) FEW Abnormal NONE SEEN /RARE [facility] Comment on above: Performed By: #### M G, CMP, TSH, T7, BNP #### [facility] [address] [place], [place] [address] Dr. Glenys Holly MUCOUS NONE SEEN Normal NONE SEEN [facility] Comment on above: Performed By: #### M G, CMP, TSH, T7, BNP #### [facility] [address] [place], [place] [address] Dr. Glenys Holly RBC 5-10 Abnormal 0-2 [facility] Comment on above: Performed By: #### M G, CMP, TSH, T7, BNP #### [facility] [address] [place], [place] [address] Dr. Glenys Holly WBC 20-50 Abnormal NONE SEEN [facility] Comment on above: Performed By: #### M G, CMP, TSH, T7, BNP #### [facility] [address] [place], [place] [address] Dr. Glenys Holly XR ABD FLAT UP_PA [...] RAMIRO SPENCER Date: 2022-03-29 09:27 Normal [facility] CT HEAD WO CONon 12-27-2021 CT [...] RAMIRO SPENCER Date: 2021-12-27 12:48 Normal [facility] Discharge Summaryon 08-18-19 Discharge Summary MR#: [id number] [facility] Khan Admitted: 08/11/2017 [...] intraperitoneal bleeding. [facility].Upon arrival to the [facility], no other injuries were noted. The patientwas [...] 4-6 hours as needed for pain and Zynihb059 mg b.i.d. for opioid related constipation.Electronically Signed by:Supa May M.D. 08/29/2017 12:01 P Supa May M.D. I personally saw this patient on the day of the encounter, performed thekey portion(s) of the service and participated in the management andconfirm the resident's documentation. Please note there may be anadditional personal documentation from sd. Date Dict: 08/16/2017/10:11 Susan/Pippa Jonas Trans: 08/17/2017 06:00 A/Izabela_JN:[id number] Normal [facility] BASIC METABOLIC PANELon 03-0 Calcium 8.8 mg/dL Normal 8.6-10.3 [facility] Comment on above: Order Comment: No: D o not add to previous draw Performed By: #### 0 0121, 52000 ####[facility] [place] [address], [facility] Chloride 97 mmol/L Low 98-107 [facility] Comment on above: Order Comment: No: D o not add to previous draw Performed By: #### 0 0121, 56128 ####[facility] [place] [address], [facility] CO2 33 mmol/L High 21-31 [facility] Comment on above: Order Comment: No: D o not add to previous draw Performed By: #### 0 0121, 94011 ####[facility] [place] [address], [facility] Creatinine 0.75 mg/dL Normal 0.60-1.20 [facility] Comment on above: Order Comment: No: D o not add to previous draw Performed By: #### 0 0121, 50114 ####[facility] [facility].[address] eGFR (black) mL/min/{1.73_m2} Normal >60 [facility] Comment on above: Order Comment: No: D o not add to previous draw Result Comment: Calc ulation may not be valid for patients over 70 years Performed By: #### 0 0121, 32687 ####[facility] [place] [address], [facility] eGFR (non-black) mL/min/{1.73_m2} Normal >60 [facility] Comment on above: Order Comment: No: D o not add to previous draw Result Comment: Calc ulation may not be valid for patients over 70 years Performed By: #### 0 0121, 21936 ####[facility] [place] [address], [facility] Glucose mass conc 91 mg/dL Normal 70-100 [facility] Comment on above: Order Comment: No: D o not add to previous draw Performed By: #### 0 0121, 29684 ####[facility] [place] [address], [facility] Potassium molar conc 2.8 mmol/L Low 3.5-5.1 [facility] Comment on above: Order Comment: No: D o not add to previous draw Performed By: #### 0 0121, 18346 ####[facility] [place] [address], [facility] Sodium 137 mmol/L Normal 136-145 [facility] Comment on above: Order Comment: No: D o not add to previous draw Performed By: #### 0 0121, 79894 ####[facility] [place] [address], [facility] Urea nitrogen 13 mg/dL Normal 7-25 [facility] Comment on above: Order Comment: No: D o not add to previous draw Performed By: #### 0 0121, 32612 ####[facility] [facility].[address] CBC COMPLETE BLOOD COUNTon 0 - Erythrocyte distribution width Auto Ratio (RBC) 14.6 % Normal 11.5-15.0 [facility] Comment on above: Order Comment: No: D o not add to previous draw Performed By: #### 5 6101, 34173 ####[facility] [place] [address], [facility] Erythrocytes (RBC) 4.05 10*6/uL Normal 3.80-5.00 [facility] Comment on above: Order Comment: No: D o not add to previous draw Performed By: #### 5 6101, 81523 ####[facility] [place] [address], [facility] Erythrocytes (RBC) 0 % Normal 0-0 [facility] Comment on above: Order Comment: No: D o not add to previous draw Performed By: #### 5 610, 07883 ####[facility] [place] [address], [facility] Hematocrit (HCT) 36.8 % Normal 36.0-45.0 [facility] Comment on above: Order Comment: No: D o not add to previous draw Performed By: #### 5 6100, 63229 ####[facility] [place] [address], [facility] Hemoglobin mass conc (Bld) 12.3 g/dL Normal 12.0-15.0 [facility] Comment on above: Order Comment: No: D o not add to previous draw Performed By: #### 5 6100, 25241 ####[facility] [place] [address], [facility] MCH 30.4 pg Normal 27.0-33.0 [facility] Comment on above: Order Comment: No: D o not add to previous draw Performed By: #### 5 6100, 87105 ####[facility] [place] [address], [facility] MCHC mass conc (RBC) 33.4 g/dL Normal 32.0-35.0 [facility] Comment on above: Order Comment: No: D o not add to previous draw Performed By: #### 5 6100, 00776 ####[facility] [place] [address], [facility] MCV 90.9 fL Normal 82.0-98.0 [facility] Comment on above: Order Comment: No: D o not add to previous draw Performed By: #### 5 610, 34822 ####[facility] PLAT CNT 196 10*3/uL Normal 150-400 [facility] Comment on above: Order Comment: No: D o not add to previous draw Performed By: #### 5 6101, 42871 ####[facility] WBC (Leukocytes) 11.0 10*3/uL High 4.0-10.6 [facility] Comment on above: Order Comment: No: D o not add to previous draw Performed By: #### 5 6101, 95500 ####[facility] PORTABLE CHEST 1 VIEWon PORTABLE CHEST 1 VIEW [facility] Mimqqtlgs[address] [place] [id number] Patient Name: JUDITH KHAN : 1945Sex: FAge: Race: WhiteMRN: [id number]. Location: [id number] Status: IVisit #: [id number] Date: 08/15/2017 7:05:00 AMCompleted Date: 08/15/2017 07:54 AMRequesting Provider: JOSH ESCUDERO Attending Provider: ALEXANDER OLSON Report Copy To: Signs & Symptoms: O2 DesaturationHistory: Patient history not availableComments: R/O EffusionExam: PORTABLE CHEST 1 VIEWAccession #: [id number] POR TABLE CHEST 1 VIEW 08/15/2017 7:54 [...] findings. Electronically signed by:Nina Beaver. Transcribed by: [email or web address], User Resident: JAZMIN MARElectronically Signed by: NINA BEAVER @ 08/15/2017 10:25 AMI personally read this/these film(s) with this resident Normal [facility] Comment on above: Order Comment: R/O E ffusion BASIC METABOLIC PANELon 03-0 Calcium 8.6 mg/dL Normal 8.6-10.3 [facility] Comment on above: Order Comment: No: D o not add to previous draw Performed By: #### 0 0121, 44737 ####[facility] [facility] [place] [address], [facility] Chloride 103 mmol/L Normal 98-107 [facility] Comment on above: Order Comment: No: D o not add to previous draw Performed By: #### 0 0121, 27788 ####[facility] [facility] [place] [address], [facility] CO2 30 mmol/L Normal 21-31 [facility] Comment on above: Order Comment: No: D o not add to previous draw Performed By: #### 0 0121, 51315 ####[facility] Creatinine 0.60 mg/dL Normal 0.60-1.20 [facility] Comment on above: Order Comment: No: D o not add to previous draw Performed By: #### 0 0121, 31405 ####[facility] eGFR (black) mL/min/{1.73_m2} Normal >60 [facility] Comment on above: Order Comment: No: D o not add to previous draw Result Comment: Calc ulation may not be valid for patients over 70 years Performed By: #### 0 0121, 06719 ####[facility] [facility].[address] eGFR (non-black) mL/min/{1.73_m2} Normal >60 [facility] Comment on above: Order Comment: No: D o not add to previous draw Result Comment: Calc ulation may not be valid for patients over 70 years Performed By: #### 0 0121, 45177 ####[facility] Glucose mass conc 81 mg/dL Normal 70-100 [facility] Comment on above: Order Comment: No: D o not add to previous draw Performed By: #### 0 0121, 80771 ####[facility] [facility] [address], [facility] Potassium molar conc 3.0 mmol/L Low 3.5-5.1 [facility] Comment on above: Order Comment: No: D o not add to previous draw Performed By: #### 0 0121, 61263 ####[facility] [place] [address], [facility] Sodium 138 mmol/L Normal 136-145 [facility] Comment on above: Order Comment: No: D o not add to previous draw Performed By: #### 0 0121, 18672 ####[facility]3000 [facility].[address] Urea nitrogen 12 mg/dL Normal 7-25 [facility] Comment on above: Order Comment: No: D o not add to previous draw Performed By: #### 0 0121, 46033 ####[facility]3000 [facility].[address] CBC COMPLETE BLOOD COUNTon 0 08-14-2017 Erythrocyte distribution width Auto Ratio (RBC) 14.9 % Normal 11.5-15.0 [facility] Comment on above: Order Comment: No: D o not add to previous draw Performed By: #### 0 0121, 48562 ####[address] Erythrocytes (RBC) 3.80 10*6/uL Normal 3.80-5.00 [facility] Comment on above: Order Comment: No: D o not add to previous draw Performed By: #### 0 0121, 85846 ####[facility]3000 [facility].[address] Erythrocytes (RBC) 0 % Normal 0-0 [facility] Comment on above: Order Comment: No: D o not add to previous draw Performed By: #### 0 0121, 09079 ####[address] Hematocrit (HCT) 34.3 % Low 36.0-45.0 [facility] Comment on above: Order Comment: No: D o not add to previous draw Performed By: #### 0 0121, 29515 ####[facility]3000 [facility].[address] Hemoglobin mass conc (Bld) 11.7 g/dL Low 12.0-15.0 [facility] Comment on above: Order Comment: No: D o not add to previous draw Performed By: #### 0 0121, 05134 ####[facility] MCH 30.8 pg Normal 27.0-33.0 [facility] Comment on above: Order Comment: No: D o not add to previous draw Performed By: #### 0 0121, 00654 ####[facility]3000 [facility].[address] MCHC mass conc (RBC) 34.1 g/dL Normal 32.0-35.0 [facility] Comment on above: Order Comment: No: D o not add to previous draw Performed By: #### 0 0121, 78908 ####[facility]3000 [facility].[address] MCV 90.3 fL Normal 82.0-98.0 [facility] Comment on above: Order Comment: No: D o not add to previous draw Performed By: #### 0 0121, 68074 ####[facility]3000 [facility].[address] PLAT CNT 134 10*3/uL Low 150-400 [facility] Comment on above: Order Comment: No: D o not add to previous draw Performed By: #### 0 0121, 25882 ####[facility]3000 [facility].[address] WBC (Leukocytes) 11.5 10*3/uL High 4.0-10.6 [facility] Comment on above: Order Comment: No: D o not add to previous draw Performed By: #### 0 0121, 61001 ####[facility]3000 [facility].[address] MAGNESIUM BLOODon 08-14-2017 Magnesium 1.9 mg/dL Normal 1.9-2.7 [facility] Comment on above: Order Comment: No: D o not add to previous draw Performed By: #### 0 0121, 88505 ####[facility] [facility] [place] [address], [facility] PHOSPHORUS BLOODon 8 Phosphate 2.5 mg/dL Normal 2.5-5.0 [facility] Comment on above: Order Comment: No: D o not add to previous draw Performed By: #### 0 0121, 77382 ####[facility] PORTABLE CHEST 1 VIEWon PORTABLE CHEST 1 VIEW [facility] Ivyjujvvx[address] [place] [id number] Patient Name: JUDITH KHAN : 1945Sex: FAge: Race: WhiteMRN: [id number]. Location: [id number] Status: IVisit #: [id number] Date: 08/14/2017 8:00:00 AMCompleted Date: 08/14/2017 08:34 AMRequesting Provider: JOSH ESCUDERO Attending Provider: ALEXANDER OLSON Report Copy To: Signs & Symptoms: O2 DesaturationHistory: Patient history not availableComments: R/O AtelectasisExam: PORTABLE CHEST 1 VIEWAccession #: [id number] POR TABLE CHEST 1 VIEW 08/14/2017 8:34 [...] findings. Electronically signed by:Kristian Nascimento. Transcribed by: [email or web address], User Resident: JAZMIN MARElectronically Signed by: KRISTIAN NASCIMENTO @ 08/14/2017 09:18 PMI personally read this/these film(s) with this resident Normal [facility] Comment on above: Order Comment: R/O A telectasis BASIC METABOLIC PANELon 030 Calcium 8.4 mg/dL Low 8.6-10.3 [facility] Comment on above: Order Comment: No: D o not add to previous draw Performed By: #### 0 0121, 99792 ####[facility]3000 [facility].[address] Chloride 109 mmol/L High 98-107 [facility] Comment on above: Order Comment: No: D o not add to previous draw Performed By: #### 0 0121, 37230 ####[facility]3000 [facility].[address] CO2 30 mmol/L Normal 21-31 [facility] Comment on above: Order Comment: No: D o not add to previous draw Performed By: #### 0 0121, 87796 ####[facility]3000 [facility].[address] Creatinine 0.62 mg/dL Normal 0.60-1.20 [facility] Comment on above: Order Comment: No: D o not add to previous draw Performed By: #### 0 0121, 40219 ####[facility] [place] [address], [facility] eGFR (black) mL/min/{1.73_m2} Normal >60 [facility] Comment on above: Order Comment: No: D o not add to previous draw Result Comment: Calc ulation may not be valid for patients over 70 years Performed By: #### 0 0121, 04580 ####[facility] [place] [address], [facility] eGFR (non-black) mL/min/{1.73_m2} Normal >60 [facility] Comment on above: Order Comment: No: D o not add to previous draw Result Comment: Calc ulation may not be valid for patients over 70 years Performed By: #### 0 0121, 26399 ####[facility] [facility] [place] [address], [facility] Glucose mass conc 99 mg/dL Normal 70-100 [facility] Comment on above: Order Comment: No: D o not add to previous draw Performed By: #### 0 0121, 63283 ####[facility] [facility] [place] [address], [facility] Potassium molar conc 3.2 mmol/L Low 3.5-5.1 [facility] Comment on above: Order Comment: No: D o not add to previous draw Performed By: #### 0 0121, 30275 ####[facility] [place] [address], [facility] Sodium 143 mmol/L Normal 136-145 [facility] Comment on above: Order Comment: No: D o not add to previous draw Performed By: #### 0 0121, 41345 ####[facility] [place] [address], [facility] Urea nitrogen 14 mg/dL Normal 7-25 [facility] Comment on above: Order Comment: No: D o not add to previous draw Performed By: #### 0 0121, 95427 ####[facility]3000 [facility].[address] CBC COMPLETE BLOOD COUNTon 0 08-13-2017 Erythrocyte distribution width Auto Ratio (RBC) 15.9 % High 11.5-15.0 [facility] Comment on above: Order Comment: No: D o not add to previous draw Performed By: #### 0 0121, 74896 ####[facility] [facility].[address] Erythrocytes (RBC) 0 % Normal 0-0 [facility] Comment on above: Order Comment: No: D o not add to previous draw Performed By: #### 0 0121, 73500 ####[facility]3000 [facility].[address] Erythrocytes (RBC) 3.76 10*6/uL Low 3.80-5.00 [facility] Comment on above: Order Comment: No: D o not add to previous draw Performed By: #### 0 0121, 68106 ####[facility]3000 [facility].[address] Hematocrit (HCT) 34.3 % Low 36.0-45.0 [facility] Comment on above: Order Comment: No: D o not add to previous draw Performed By: #### 0 0121, 43177 ####[facility] [facility].[address] Hemoglobin mass conc (Bld) 11.4 g/dL Low 12.0-15.0 [facility] Comment on above: Order Comment: No: D o not add to previous draw Performed By: #### 0 0121, 62368 ####[facility] MCH 30.3 pg Normal 27.0-33.0 [facility] Comment on above: Order Comment: No: D o not add to previous draw Performed By: #### 0 0121, 20506 ####[facility] [facility].[address] MCHC mass conc (RBC) 33.2 g/dL Normal 32.0-35.0 [facility] Comment on above: Order Comment: No: D o not add to previous draw Performed By: #### 0 0121, 94695 ####[facility]3000 [facility].[address] MCV 91.2 fL Normal 82.0-98.0 [facility] Comment on above: Order Comment: No: D o not add to previous draw Performed By: #### 0 0121, 66150 ####[facility]3000 [facility].[address] PLAT CNT 95 10*3/uL Low 150-400 [facility] Comment on above: Order Comment: No: D o not add to previous draw Performed By: #### 0 0121, 21303 ####[place] [address] [facility].[address] WBC (Leukocytes) 9.1 10*3/uL Normal 4.0-10.6 [facility] Comment on above: Order Comment: No: D o not add to previous draw Performed By: #### 0 0121, 16239 ####[facility] MAGNESIUM BLOODon 08-13-2017 Magnesium 1.8 mg/dL Low 1.9-2.7 [facility] Comment on above: Order Comment: No: D o not add to previous draw Performed By: #### 0 0121, 86187 ####[facility]3000 [facility].[address] PHOSPHORUS BLOODon 8 Phosphate 1.9 mg/dL Low 2.5-5.0 [facility] Comment on above: Order Comment: No: D o not add to previous draw Performed By: #### 0 0121, 55030 ####[facility] [place] [address], [facility] BASIC METABOLIC PANELon 03-0 Calcium 8.4 mg/dL Low 8.6-10.3 [facility] Comment on above: Order Comment: No: D o not add to previous draw Performed By: #### 0 0121, 22679 ####[facility] [place] [address], [facility] Chloride 113 mmol/L High 98-107 [facility] Comment on above: Order Comment: No: D o not add to previous draw Performed By: #### 0 0121, 05669 ####[facility] [place] [address], [facility] CO2 25 mmol/L Normal 21-31 [facility] Comment on above: Order Comment: No: D o not add to previous draw Performed By: #### 0 0121, 24983 ####[facility] [place] [address], [facility] Creatinine 0.75 mg/dL Normal 0.60-1.20 [facility] Comment on above: Order Comment: No: D o not add to previous draw Performed By: #### 0 0121, 29688 ####[facility] [place] [address], [facility] eGFR (black) mL/min/{1.73_m2} Normal >60 [facility] Comment on above: Order Comment: No: D o not add to previous draw Result Comment: Calc ulation may not be valid for patients over 70 years Performed By: #### 0 0121, 29712 ####[facility] [place] [address], [facility] eGFR (non-black) mL/min/{1.73_m2} Normal >60 [facility] Comment on above: Order Comment: No: D o not add to previous draw Result Comment: Calc ulation may not be valid for patients over 70 years Performed By: #### 0 0121, 40727 ####[facility] Glucose mass conc 116 mg/dL High 70-100 [facility] Comment on above: Order Comment: No: D o not add to previous draw Performed By: #### 0 0121, 16115 ####[facility] Potassium molar conc 3.6 mmol/L Normal 3.5-5.1 [facility] Comment on above: Order Comment: No: D o not add to previous draw Performed By: #### 0 0121, 48694 ####[facility] [facility].[address] Sodium 144 mmol/L Normal 136-145 [facility] Comment on above: Order Comment: No: D o not add to previous draw Performed By: #### 0 0121, [id number] ####[facility] Urea nitrogen 16 mg/dL Normal 7-25 [facility] Comment on above: Order Comment: No: D o not add to previous draw Performed By: #### 0 0121, 65313 ####[facility]3000 [facility].[address] CBC COMPLETE BLOOD COUNTon 0 - Erythrocyte distribution width Auto Ratio (RBC) 16.3 % High 11.5-15.0 [facility] Comment on above: Order Comment: No: D o not add to previous draw Performed By: #### 0 0121, 16459 ####[facility] Erythrocytes (RBC) 4.15 10*6/uL Normal 3.80-5.00 [facility] Comment on above: Order Comment: No: D o not add to previous draw Performed By: #### 0 0121, 40914 ####[facility]3000 [facility].[address] Erythrocytes (RBC) 0 % Normal 0-0 [facility] Comment on above: Order Comment: No: D o not add to previous draw Performed By: #### 0 0121, 58276 ####[facility]3000 [facility].[address] Hematocrit (HCT) 37.6 % Normal 36.0-45.0 [facility] Comment on above: Order Comment: No: D o not add to previous draw Performed By: #### 0 0121, 58177 ####[facility]3000 [facility].[address] Hemoglobin mass conc (Bld) 12.5 g/dL Normal 12.0-15.0 [facility] Comment on above: Order Comment: No: D o not add to previous draw Performed By: #### 0 0121, 93425 ####[facility]3000 [facility].[address] MCH 30.1 pg Normal 27.0-33.0 [facility] Comment on above: Order Comment: No: D o not add to previous draw Performed By: #### 0 0121, 62564 ####[facility]3000 [facility].[address] MCHC mass conc (RBC) 33.2 g/dL Normal 32.0-35.0 [facility] Comment on above: Order Comment: No: D o not add to previous draw Performed By: #### 0 0121, 63288 ####[facility]3000 [facility].[address] MCV 90.6 fL Normal 82.0-98.0 [facility] Comment on above: Order Comment: No: D o not add to previous draw Performed By: #### 0 0121, 39194 ####[facility] [place] [address], [facility] PLAT CNT 89 10*3/uL Low 150-400 [facility] Comment on above: Order Comment: No: D o not add to previous draw Performed By: #### 0 0121, 96296 ####[facility]3000 [facility] [address], [facility] WBC (Leukocytes) 13.5 10*3/uL High 4.0-10.6 [facility] Comment on above: Order Comment: No: D o not add to previous draw Performed By: #### 0 0121, 18867 ####[facility]3000 [facility].[address] HEMATOCRITon 08-12-2017 Hematocrit (HCT) 37.6 % Normal 36.0-45.0 [facility] Comment on above: Order Comment: No: D o not add to previous draw Performed By: #### 0 0121, 48069 ####[facility] HEMOGLOBINon 08-12-2017 Hemoglobin mass conc (Bld) 12.6 g/dL Normal 12.0-15.0 [facility] Comment on above: Order Comment: No: D o not add to previous drawLAB DRAW NOW - PER CECY MCELROY Performed By: #### 0 0121, 91445 ####[facility] [place] [address], [facility] MAGNESIUM BLOODon 08-12-2017 Magnesium 1.9 mg/dL Normal 1.9-2.7 [facility] Comment on above: Order Comment: No: D o not add to previous draw Performed By: #### 0 0121, 25643 ####[facility] [place] [address], [facility] PHOSPHORUS BLOODon 8 Phosphate 2.1 mg/dL Low 2.5-5.0 [facility] Comment on above: Order Comment: No: D o not add to previous draw Performed By: #### 0 0121, 38726 ####[place] [address] PORTABLE CHEST 1 VIEWon PORTABLE CHEST 1 VIEW [facility] Txavdnvrp[address] [facility] [place] [address] Patient Name: JUDITH KHAN : 1945Sex: FAge: Race: WhiteMRN: [id number]. Location: [id number] Status: IVisit #: [id number] Date: 08/12/2017 7:00:00 AMCompleted Date: 08/12/2017 09:16 AMRequesting Provider: SHANON HERNANDEZ Attending Provider: ALEXANDER OLSON Report Copy To: Signs & Symptoms: O2 DesaturationHistory: Patient history not availableComments: R/O AtelectasisExam: PORTABLE CHEST 1 VIEWAccession #: [id number] POR TABLE CHEST 1 VIEW 08/12/2017 9:16 [...] Approved by:Andrzej Torres on 08/12/2017 11:08 AM CELESTE. I, Kristian Nascimento, have reviewed the images and report and concur with these findings. Electronically signed by:Kristian Nascimento. Transcribed by: [email or web address], User Resident: ANDRZEJ TORRESElectronically Signed by: KRISTIAN NASCIMENTO @ 08/12/2017 12:27 PMI personally read this/these film(s) with this resident Normal [facility] Comment on above: Order Comment: R/O A telectasis ALCOHOLon 08-11-2017 Ethanol NONE DETECTED Normal [facility] Comment on above: Result Comment: Divi de by 1000 to convert mg/dL to percent. Example: 100mg/dL = 0.1%. Performed By: #### 1 53, ####[facility]3000 [facility].[address] APTTon 08-11-2017 aPTT 42.8 s High 25.0-35.0 [facility] Comment on above: Order Comment: [...] THIS PURPOSE. Performed By: #### 1 53, ####[facility]3000 [facility] [place] [address], [facility] aPTT 27.2 s Normal 25.0-35.0 [facility] Comment on above: Result Comment: [...] THIS PURPOSE. Performed By: #### 5 6101, 14236 ####[facility]3000 [facility].[address] ARTERIAL BLOOD GAS WITH ICAo n 08-11-2017 BASE EXCESS -7 mmol/L Low -2-2 [facility] Comment on above: Performed By: #### 1 53, ####[facility] Bicarbonate (HCO3) 18 mmol/L Low 23-27 [facility] Comment on above: Performed By: #### 1 ####[facility]3000 [facility].[address] CO2 34 mmHg Low 35-45 [facility] Comment on above: Performed By: #### 1 ####[facility]3000 [facility].[address] DELIVERY SYSTEMS MV Normal [facility] Comment on above: Performed By: #### 1 ####[facility]3000 [facility].[address] FIO2 40 % Normal 21-100 [facility] Comment on above: Performed By: #### 1 ####[facility]3000 [facility].[address] IONIZED CALCIUM 1.13 mmol/L Normal 1.13-1.32 [facility] Comment on above: Performed By: #### 1 ####[facility]3000 [facility] [address], [facility] MIN VOLUME 7.2 Normal [facility] Comment on above: Performed By: #### 1 ####[facility] [place] [address], [facility] MODALITY AC Normal [facility] Comment on above: Performed By: #### 1 ####[facility] [place] [address], [facility] O2 saturation 95.5 % Normal 94.0-97.0 [facility] Comment on above: Performed By: #### 1 ####[facility] [place] [address], [facility] Oxygen in arterial blood 161 mm[Hg] Critically high 75-100 [facility] Comment on above: Performed By: #### 1 ####[facility] [place] [address], [facility] PEEP 5.0 CMH20 Normal [facility] Comment on above: Performed By: #### 1 ####[facility] [place] [address], [facility] PF RATIO 403 mmHg High 50-400 [facility] Comment on above: Performed By: #### 1 ####[facility] [place] [address], [facility] pH of blood 7.33 [pH] Low 7.35-7.45 [facility] Comment on above: Performed By: #### 1 ####[facility] [place] [address], [place] Respiratory rate 16 /min Normal [facility] Comment on above: Performed By: #### 1 ####[facility] [place] [address], [facility] TIDAL VOLUME (VT) CC 450 Normal [facility] Comment on above: Performed By: #### 1 ####[facility] [place] [address], [facility] BASE EXCESS -9 mmol/L Low -2-2 [facility] Comment on above: Order Comment: RESUL TS CHECKED AND CALLED. ACCURATELY READ BACK BY DAT Performed By: #### 1 53, ####[facility] [place] [address], [facility] Bicarbonate (HCO3) 18 mmol/L Low 23-27 [facility] Comment on above: Order Comment: RESUL TS CHECKED AND CALLED. ACCURATELY READ BACK BY DAT Performed By: #### 1 53, ####[facility] [place] [address], [facility] CO2 44 mmHg Normal 35-45 [facility] Comment on above: Order Comment: RESUL TS CHECKED AND CALLED. ACCURATELY READ BACK BY DAT Performed By: #### 1 53, ####[facility] [place] [address], [facility] IONIZED CALCIUM 1.05 mmol/L Low 1.13-1.32 [facility] Comment on above: Order Comment: RESUL TS CHECKED AND CALLED. ACCURATELY READ BACK BY DAT Performed By: #### 1 53, ####[facility] [place] [address], [facility] O2 saturation 96.9 % Normal 94.0-97.0 [facility] Comment on above: Order Comment: RESUL TS CHECKED AND CALLED. ACCURATELY READ BACK BY DAT Performed By: #### 1 53, ####[facility] [place] [address], [facility] Oxygen in arterial blood 532 mm[Hg] Critically high 75-100 [facility] Comment on above: Order Comment: RESUL TS CHECKED AND CALLED. ACCURATELY READ BACK BY DAT Performed By: #### 1 53, ####[facility] [place] [address], [facility] pH of blood 7.22 [pH] Critically low 7.35-7.45 [facility] Comment on above: Order Comment: RESUL TS CHECKED AND CALLED. ACCURATELY READ BACK BY DAT Performed By: #### 1 53, ####[facility] [place] [address], [facility] BASIC METABOLIC PANELon 03-0 Calcium 8.1 mg/dL Low 8.6-10.3 [facility] Comment on above: Order Comment: No: D o not add to previous draw Performed By: #### 1 53, ####[facility] [place] [address], [facility] Chloride 116 mmol/L High 98-107 [facility] Comment on above: Order Comment: No: D o not add to previous draw Performed By: #### 1 53, ####[facility] [place] [address], [facility] Creatinine 0.85 mg/dL Normal 0.60-1.20 [facility] Comment on above: Order Comment: No: D o not add to previous draw Performed By: #### 1 53, ####[facility] [place] [address], [facility] Glucose mass conc 109 mg/dL High 70-100 [facility] Comment on above: Order Comment: No: D o not add to previous draw Performed By: #### 1 53, ####[facility] [place] [address], [place] Potassium molar conc 4.9 mmol/L Normal 3.5-5.1 [facility] Comment on above: Order Comment: No: D o not add to previous draw Performed By: #### 1 53, ####[facility] [id number], [facility] Sodium 142 mmol/L Normal 136-145 [facility] Comment on above: Order Comment: No: D o not add to previous draw Performed By: #### 1 53, ####[facility] [place] [address], [facility] Urea nitrogen 16 mg/dL Normal 7-25 [facility] Comment on above: Order Comment: No: D o not add to previous draw Performed By: #### 1 53, ####[facility] [place] [address], [facility] Calcium 7.9 mg/dL Low 8.6-10.3 [facility] Comment on above: Order Comment: No: D o not add to previous draw Performed By: #### 1 53, ####[facility] [place] [address], [facility] Chloride 113 mmol/L High 98-107 [facility] Comment on above: Order Comment: No: D o not add to previous draw Performed By: #### 1 53, ####[facility] [place] [address], [facility] CO2 22 mmol/L Normal 21-31 [facility] Comment on above: Order Comment: No: D o not add to previous draw Performed By: #### 1 53, ####[facility] [place] [address], [facility] Creatinine 0.68 mg/dL Normal 0.60-1.20 [facility] Comment on above: Order Comment: No: D o not add to previous draw Performed By: #### 1 53, ####[facility] [place] [address], [facility] eGFR (black) mL/min/{1.73_m2} Normal >60 [facility] Comment on above: Order Comment: No: D o not add to previous draw Result Comment: Calc ulation may not be valid for patients over 70 years Performed By: #### 1 53, ####[facility] eGFR (non-black) mL/min/{1.73_m2} Normal >60 [facility] Comment on above: Order Comment: No: D o not add to previous draw Result Comment: Calc ulation may not be valid for patients over 70 years Performed By: #### 1 53, ####[facility] Glucose mass conc 141 mg/dL High 70-100 [facility] Comment on above: Order Comment: No: D o not add to previous draw Performed By: #### 1 53, ####[facility]3000 [facility].[address] Potassium molar conc 3.3 mmol/L Low 3.5-5.1 [facility] Comment on above: Order Comment: No: D o not add to previous draw Performed By: #### 1 53, ####[facility]3000 [facility].[address] Sodium 139 mmol/L Normal 136-145 [facility] Comment on above: Order Comment: No: D o not add to previous draw Performed By: #### 1 53, ####[facility]3000 [facility].[address] Urea nitrogen 12 mg/dL Normal 7-25 [facility] Comment on above: Order Comment: No: D o not add to previous draw Performed By: #### 1 53, ####[facility]3000 [facility].[address] CBC W/DIFFon 08-11-2017 ABS BASOPHILS 0.0 10*3/uL Normal 0.0-0.2 [facility] Comment on above: Performed By: #### 1 53 ####[facility]3000 [facility].[address] ABS IMM GRANS 0.0 10*3/uL Normal 0.0-0.2 [facility] Comment on above: Performed By: #### 1 ####[facility]3000 [facility].[address] Basophils Auto #/vol (Bld) 0.1 % Normal 0.0-1.0 [facility] Comment on above: Performed By: #### 1 ####[facility] Eosinophils 0.0 10*3/uL Normal 0.0-0.5 [facility] Comment on above: Performed By: #### 1 ####[facility]3000 [facility].[address] Eosinophils/100 leukocytes 0.1 % Normal 0.0-6.0 [facility] Comment on above: Performed By: #### 1 ####[facility] Erythrocyte distribution width Auto Ratio (RBC) 15.1 % High 11.5-15.0 [facility] Comment on above: Performed By: #### 1 ####[facility]3000 [facility].[address] Erythrocytes (RBC) 0 % Normal 0-0 [facility] Comment on above: Performed By: #### 1 ####[facility] Erythrocytes (RBC) 4.46 10*6/uL Normal 3.80-5.00 [facility] Comment on above: Performed By: #### 1 ####[facility]3000 [facility].[address] Hematocrit (HCT) 40.3 % Normal 36.0-45.0 [facility] Comment on above: Performed By: #### 1 ####[facility] Hemoglobin mass conc (Bld) 13.5 g/dL Normal 12.0-15.0 [facility] Comment on above: Performed By: #### 1 ####[place] [address] [address] IMMATURE GRANS 0.2 % Normal 0.0-1.0 [facility] Comment on above: Performed By: #### 1 ####[address] Lymphocytes 0.9 10*3/uL Low 1.2-4.0 [facility] Comment on above: Performed By: #### 1 ####[address] Lymphocytes/100 leukocytes 5.8 % Low 20.0-45.0 [facility] Comment on above: Performed By: #### 1 ####[address] MCH 30.3 pg Normal 27.0-33.0 [facility] Comment on above: Performed By: #### 1 ####[place] [address] [address] MCHC mass conc (RBC) 33.5 g/dL Normal 32.0-35.0 [facility] Comment on above: Performed By: #### 1 ####[address] [place] [address], [facility] MCV 90.4 fL Normal 82.0-98.0 [facility] Comment on above: Performed By: #### 1 ####[facility] [place] [address], [facility] Monocytes 0.7 10*3/uL Normal 0.1-1.0 [facility] Comment on above: Performed By: #### 1 ####[facility] [place] [address], [facility] MONOS 4.6 % Low 5.0-12.0 [facility] Comment on above: Performed By: #### 1 ####[facility]3000 [facility].[address] Neutrophils 13.6 10*3/uL High 1.6-7.6 [facility] Comment on above: Performed By: #### 1 ####[facility]3000 [facility] [address], [facility] Neutrophils/100 leukocytes 89.2 % High 40.0-72.0 [facility] Comment on above: Performed By: #### 1 ####[facility] [facility] [address], [facility] PLAT CNT 94 10*3/uL Low 150-400 [facility] Comment on above: Result Comment: P = 126 Performed By: #### 1 53, ####[facility]3000 [facility].[address] WBC (Leukocytes) 15.2 10*3/uL High 4.0-10.6 [facility] Comment on above: Performed By: #### 1 ####[facility] [place] [address], [facility] ABS BASOPHILS 0.0 10*3/uL Normal 0.0-0.2 [facility] Comment on above: Performed By: #### 5 0103 ####[facility] ABS IMM GRANS 0.1 10*3/uL Normal 0.0-0.2 [facility] Comment on above: Performed By: #### 5 0103 ####[facility] Basophils Auto #/vol (Bld) 0.3 % Normal 0.0-1.0 [facility] Comment on above: Performed By: #### 5 0103 ####[facility] [place] [address] Eosinophils 0.0 10*3/uL Normal 0.0-0.5 [facility] Comment on above: Performed By: #### 5 0103 ####[facility] Eosinophils/100 leukocytes 0.2 % Normal 0.0-6.0 [facility] Comment on above: Performed By: #### 5 0103 ####[facility] Erythrocyte distribution width Auto Ratio (RBC) 14.3 % Normal 11.5-15.0 [facility] Comment on above: Performed By: #### 5 0103 ####[facility] Erythrocytes (RBC) 3.50 10*6/uL Low 3.80-5.00 [facility] Comment on above: Performed By: #### 5 3 ####[facility] Erythrocytes (RBC) 0 % Normal 0-0 [facility] Comment on above: Performed By: #### 5 0103 ####[facility] Hematocrit (HCT) 32.5 % Low 36.0-45.0 [facility] Comment on above: Performed By: #### 5 0103 ####[facility] Hemoglobin mass conc (Bld) 10.9 g/dL Low 12.0-15.0 [facility] Comment on above: Performed By: #### 0103 ####[facility] IMMATURE GRANS 0.4 % Normal 0.0-1.0 [facility] Comment on above: Performed By: #### 3 ####[facility] Lymphocytes 2.3 10*3/uL Normal 1.2-4.0 [facility] Comment on above: Performed By: #### 5 0103 ####[facility] Lymphocytes/100 leukocytes 17.6 % Low 20.0-45.0 [facility] Comment on above: Performed By: #### 5 0103 ####[facility] MCH 31.1 pg Normal 27.0-33.0 [facility] Comment on above: Performed By: #### 5 0103 ####[facility] MCHC mass conc (RBC) 33.5 g/dL Normal 32.0-35.0 [facility] Comment on above: Performed By: #### 5 3 ####[facility] [place] [address], [place] MCV 92.9 fL Normal 82.0-98.0 [facility] Comment on above: Performed By: #### 5 0103 ####[facility] Monocytes 0.8 10*3/uL Normal 0.1-1.0 [facility] Comment on above: Performed By: #### 5 0103 ####[facility] MONOS 6.1 % Normal 5.0-12.0 [facility] Comment on above: Performed By: #### 5 0103 ####[facility] Neutrophils 9.7 10*3/uL High 1.6-7.6 [facility] Comment on above: Performed By: #### 5 0103 ####[facility] Neutrophils/100 leukocytes 75.4 % High 40.0-72.0 [facility] Comment on above: Performed By: #### 5 0103 ####[facility] PLAT CNT 126 10*3/uL Low 150-400 [facility] Comment on above: Performed By: #### 5 0103 ####[facility] WBC (Leukocytes) 12.9 10*3/uL High 4.0-10.6 [facility] Comment on above: Performed By: #### 5 0103 ####[facility] COMP METABOLIC PANELon 08-11 Alanine aminotransferase (ALT) 8 U/L Normal 7-52 [facility] Comment on above: Performed By: #### 0 0121, 41235 ####[facility] [place] [address], [facility] Albumin 2.6 g/dL Low 3.5-5.7 [facility] Comment on above: Performed By: #### 0 0121, [id number] ####[facility] [place] [address], [facility] ALKALINE PHOSPH 34 IU/L Normal 34-104 [facility] Comment on above: Performed By: #### 0 0121, 96712 ####[facility] Aspartate aminotransferase (AST) 11 U/L Low 13-39 [facility] Comment on above: Performed By: #### 0 0121, 48399 ####[facility] Bilirubin (total) 0.7 mg/dL Normal 0.3-1.0 [facility] Comment on above: Performed By: #### 0 0121, 32113 ####[facility] [facility].[address] Calcium 7.4 mg/dL Low 8.6-10.3 [facility] Comment on above: Performed By: #### 0 0121, 99996 ####[facility] [place] [address], [facility] Chloride 112 mmol/L High 98-107 [facility] Comment on above: Performed By: #### 0 0121, 58769 ####[facility] [place] [address], [facility] CO2 22 mmol/L Normal 21-31 [facility] Comment on above: Performed By: #### 0 0121, 99485 ####[facility] [place] [address], [facility] Creatinine 0.83 mg/dL Normal 0.60-1.20 [facility] Comment on above: Performed By: #### 0 0121, 92514 ####[facility] [place] [address], [facility] eGFR (black) mL/min/{1.73_m2} Normal >60 [facility] Comment on above: Result Comment: Calc ulation may not be valid for patients over 70 years Performed By: #### 0 0121, 86136 ####[facility] [facility].[address] eGFR (non-black) mL/min/{1.73_m2} Normal >60 [facility] Comment on above: Result Comment: Calc ulation may not be valid for patients over 70 years Performed By: #### 0 0121, 07629 ####[facility] [facility] [address], [facility] Glucose mass conc 138 mg/dL High 70-100 [facility] Comment on above: Performed By: #### 0 0121, 18090 ####[place] [address] [facility].[address] Potassium molar conc 4.0 mmol/L Normal 3.5-5.1 [facility] Comment on above: Performed By: #### 0 0121, 36586 ####[facility]3000 [facility].[address] Protein 4.1 g/dL Low 6.0-8.3 [facility] Comment on above: Performed By: #### 0 0121, 17831 ####[facility]3000 [facility].[address] Sodium 138 mmol/L Normal 136-145 [facility] Comment on above: Performed By: #### 0 0121, 26172 ####[facility] [facility] [address], [facility] Urea nitrogen 16 mg/dL Normal 7-25 [facility] Comment on above: Performed By: #### 0 0121, 01441 ####[facility] [place], [place] [address] [place] [address] Consultationon 08-11-2017 Consultation MR#: [id number] Pt. Name: Judith Khan Date of Service: 08/10/2017 Room #: SIC [id number] Birthdate: 1945 Referring Physician: JAYE FOR CONSULTATION: Critical care management status post splenectomy,ventilatory management.HISTORY OF PRESENT ILLNESS: Ms. Judith Khan is a 72-year-old female witha history of hypertension, hyperlipidemia, diabetes, and COPD, whopresented as a transfer from [place], [place] with a traumatic brain injury.The patient reportedly fell, as [facility] her [facility] 07/22/2017, in her home. [...] days. She presented to the hospital in [place], [place], and aCT abdomen and pelvis was obtained that demonstrated a grade 5 spleniclaceration. The patient was initially hemodynamically stable per reportsfrom the outside facility, however she became markedly hypotensive,unresponsive to multiple fluid boluses, and was transferred [facility] as a level 1 trauma. When she [facility], she had received 3 L of crystalloid and 4 units of blood atthat time and only transiently responded to this fluid resuscitation. Shewas hypotensive in the [facility] and an emergent right femoral Cordis wasplaced [...] chronic obstructivepulmonary disease, not on home O2; poa-ceajedl-ydfptgqlw diabetes mellitus,type 2; anxiety.PAST SURGICAL HISTORY: Hysterectomy, [...] outside facilityreviewed with attending surgeon in [facility] [place] with evidence of rupturedspleen with blood products [...] past. GCS is 15reported in the [facility], currently GCS is 3T, intubated and sedated.She [...] the setting ofcritical care status.Endocrine: History of let-lyqzxnt-ikmydqicl diabetes mellitus, type 2, onhome metformin. We [...] was placed in emergent setting in the[place], this will be removed/replaced within 24 hours [...] personal documentation from me. Date Dict: 08/11/2017/04:38 A/Carmenza Winter, MDDate Trans: 08/11/2017 02:22 P/mmoDN_JN:[id number] Normal [facility] FRESH FROZEN PLASMA 2 UNITSo n 08-11-2017 PRODUCT CODE 1 E2701 Normal [facility] Comment on above: Order Comment: INR: 1.22 ,PTT: 27.2 at the time of order ;Indication: Activebleeding/invasive procedure with prolonged PT/PTT or INR > 1.6 Performed By: #### 1 53, ####[facility] PRODUCT CODE 2 E2701 Normal [facility] Comment on above: Order Comment: INR: 1.22 ,PTT: 27.2 at the time of order ;Indication: Activebleeding/invasive procedure with prolonged PT/PTT or INR > 1.6 Performed By: #### 1 53, ####[facility] PRODUCT STATUS 1 PT Normal [facility] Comment on above: Order Comment: INR: 1.22 ,PTT: 27.2 at the time of order ;Indication: Activebleeding/invasive procedure with prolonged PT/PTT or INR > 1.6 Result Comment: Resu lt changed by IF on 08/11/2017 00:27. The previous value was XX.Result changed by IF on 08/12/2017 02:00. The previous value was IS. Performed By: #### 1 53, ####[facility] PRODUCT STATUS 2 PT Normal [facility] Comment on above: Order Comment: INR: 1.22 ,PTT: 27.2 at the time of order ;Indication: Activebleeding/invasive procedure with prolonged PT/PTT or INR > 1.6 Result Comment: Resu lt changed by IF on 08/11/2017 03:17. The previous value was XM.Result changed by IF on 08/13/2017 02:00. The previous value was IS. Performed By: #### 1 53, ####[facility]3000 [facility].[address] UNIT ABO 1 O Normal [facility] Comment on above: Order Comment: INR: 1.22 ,PTT: 27.2 at the time of order ;Indication: Activebleeding/invasive procedure with prolonged PT/PTT or INR > 1.6 Performed By: #### 1 53, ####[facility] [facility].[address] UNIT ABO 2 O Normal [facility] Comment on above: Order Comment: INR: 1.22 ,PTT: 27.2 at the time of order ;Indication: Activebleeding/invasive procedure with prolonged PT/PTT or INR > 1.6 Performed By: #### 1 53, ####[facility]3000 [facility].[address] UNIT ID 1 [id number] Normal [facility] Comment on above: Order Comment: INR: 1.22 ,PTT: 27.2 at the time of order ;Indication: Activebleeding/invasive procedure with prolonged PT/PTT or INR > 1.6 Performed By: #### 1 ####[facility] [place] [address], [facility] UNIT ID 2 [id number] Normal [facility] Comment on above: Order Comment: INR: 1.22 ,PTT: 27.2 at the time of order ;Indication: Activebleeding/invasive procedure with prolonged PT/PTT or INR > 1.6 Performed By: #### 1 53, ####[facility] [place] [address], [facility] UNIT RH 1 Positive Normal [facility] Comment on above: Order Comment: INR: 1.22 ,PTT: 27.2 at the time of order ;Indication: Activebleeding/invasive procedure with prolonged PT/PTT or INR > 1.6 Performed By: #### 1 53, ####[facility] [place] [address], [facility] UNIT RH 2 Negative Normal [facility] Comment on above: Order Comment: INR: 1.22 ,PTT: 27.2 at the time of order ;Indication: Activebleeding/invasive procedure with prolonged PT/PTT or INR > 1.6 Performed By: #### 1 ####[facility] [place] [address], [facility] HEMATOCRITon 08-11-2017 Hematocrit (HCT) 37.7 % Normal 36.0-45.0 [facility] Comment on above: Order Comment: No: D o not add to previous draw Performed By: #### 1 53, ####[facility] [place] [address], [facility] Hematocrit (HCT) 34.8 % Low 36.0-45.0 [facility] Comment on above: Order Comment: No: D o not add to previous draw Performed By: #### 1 53, ####[facility] [place] [address], [facility] HEMOGLOBINon 08-11-2017 Hemoglobin mass conc (Bld) 12.7 g/dL Normal 12.0-15.0 [facility] Comment on above: Order Comment: No: D o not add to previous drawLAB DRAW NOW - PER CECY MCELROY Performed By: #### 1 53, ####[facility]3000 [facility].[address] Hemoglobin mass conc (Bld) 11.8 g/dL Low 12.0-15.0 [facility] Comment on above: Order Comment: No: D o not add to previous draw Performed By: #### 1 53, ####[facility] History and Physicalon 08-11 History and Physical MR#: [id number] [facility] Pt. Name: Judith Khan Admitted: 08/11/2017 Date of : 1945 Attending Physician: Alexander Olson M.D. Room #: SIC [id number] Discharge Date: HISTORY AND PHYSICALCHIEF COMPLAINT: Trauma [...] any other blood products. [facility] [...] they were fluctuating while in the [facility] [place],stabilized with fluid.GENERAL: Alert and oriented, no acute [...] Dict: 08/11/2017/12:27 A/SUKHJINDER Delgadoate Trans: 08/11/2017 08:41 A/mmoDN_JN:[id number] Normal [facility] LACTATE BLOODon 08-11-2017 Lactate 1.1 mmol/L Normal .5-2.2 [facility] Comment on above: Order Comment: No: D o not add to previous draw Performed By: #### 1 53, ####[facility]3000 [facility].[address] Lactate 1.3 mmol/L Normal .5-2.2 [facility] Comment on above: Performed By: #### 1 53, ####[facility]3000 [facility] [place] [address], [facility] LIPASE BLOODon 08-11-2017 Lipase 13 Units/L Normal 11-82 [facility] Comment on above: Performed By: #### 0 0121, 95860 ####[facility] [facility] [address], [facility] LIVER BATTERYon 08-11-2017 Alanine aminotransferase (ALT) 18 U/L Normal 7-52 [facility] Comment on above: Order Comment: No: D o not add to previous draw Performed By: #### 1 53, ####[place] [address] [facility].[address] Albumin 2.8 g/dL Low 3.5-5.7 [facility] Comment on above: Order Comment: No: D o not add to previous draw Performed By: #### 1 53, ####[facility] [place] [address], [facility] ALKALINE PHOSPH 36 IU/L Normal 34-104 [facility] Comment on above: Order Comment: No: D o not add to previous draw Performed By: #### 1 53, ####[facility] [place] [address], [facility] Aspartate aminotransferase (AST) 30 U/L Normal 13-39 [facility] Comment on above: Order Comment: No: D o not add to previous draw Performed By: #### 1 53, ####[facility] [facility] [address], [facility] Bilirubin (direct) 0.2 mg/dL Normal 0.0-0.2 [facility] Comment on above: Order Comment: No: D o not add to previous draw Performed By: #### 1 53, ####[facility] [place] [address], [facility] Bilirubin (total) 0.9 mg/dL Normal 0.3-1.0 [facility] Comment on above: Order Comment: No: D o not add to previous draw Performed By: #### 1 53, ####[facility] [facility] [address], [facility] Protein 4.0 g/dL Low 6.0-8.3 [facility] Comment on above: Order Comment: No: D o not add to previous draw Performed By: #### 1 53, ####[facility] [place] [address], [facility] MAGNESIUM BLOODon 08-11-2017 Magnesium 1.4 mg/dL Low 1.9-2.7 [facility] Comment on above: Order Comment: No: D o not add to previous draw Performed By: #### 1 53, ####[facility] Operative Reporton 8 Operative Report MR#: [id number] Christo do [facility] Pt. Name: Judith Khan Room #: SIC [id number] Discharge Date: Birthdate: 1945 OPERATIVE REPORTDATE OF SURGERY: 08/11/2017SURGEON: Alexander Olson M.D.ASSISTANTS: Aldo Villasenor M.D. PhD; ALEXANDER GutierrezREOPERATIVE DIAGNOSES: Traumatic splenic rupture.POSTOPERATIVE DIAGNOSIS: Traumatic splenic rupture.PROCEDURE: Splenectomy for trauma.INDICATION: This is a 72-year-old white [facility], [facility] for a [facility] [...] hilum veryclose to this plane. An endo ARNDALL stapler, de la cruz merissa were placed [...] the entire procedure. Date Dict: 08/11/2017/06:29 A/Aldo Ortizannabelleangelica, MDDate Trans: 08/11/2017 03:54 P/mmoDN_JN:[id number] Normal [facility] PHOSPHORUS BLOODon 8 Phosphate 3.1 mg/dL Normal 2.5-5.0 [facility] Comment on above: Order Comment: No: D o not add to previous draw Performed By: #### 1 53, ####[facility] PLATELET APHERESIS 1 UNITon 08-11-2017 PRODUCT CODE 1 E7006 Normal [facility] Comment on above: Order Comment: Plt c ount at the time of order: 126 ;Indication: Platelet-inhibitingdrug therapy with invasive procedure/bleeding Performed By: #### 1 53, ####[facility] PRODUCT STATUS 1 PT Normal [facility] Comment on above: Order Comment: Plt c ount at the time of order: 126 ;Indication: Platelet-inhibitingdrug therapy with invasive procedure/bleeding Result Comment: Resu lt changed by IF on 08/11/2017 00:20. The previous value was XM.Result changed by IF on 08/12/2017 02:00. The previous value was IS. Performed By: #### 1 53, ####[facility] UNIT ABO 1 O Normal [facility] Comment on above: Order Comment: Plt c ount at the time of order: 126 ;Indication: Platelet-inhibitingdrug therapy with invasive procedure/bleeding Performed By: #### 1 53, ####[facility]3000 [facility].[address] UNIT ID 1 [id number] Normal [facility] Comment on above: Order Comment: Plt c ount at the time of order: 126 ;Indication: Platelet-inhibitingdrug therapy with invasive procedure/bleeding Performed By: #### 1 53, ####[address] UNIT RH 1 Positive Normal [facility] Comment on above: Order Comment: Plt c ount at the time of order: 126 ;Indication: Platelet-inhibitingdrug therapy with invasive procedure/bleeding Performed By: #### 1 53, ####[address] POC GLUCOSE LABon 08-11-2017 Glucose mass conc 100 mg/dL Normal 70-100 [facility] Comment on above: Performed By: #### 1 53, ####[address] PORTABLE ABDOMENon 8 PORTABLE ABDOMEN [facility] Fuqfuyfyd[address] [place], [place] [address] Patient Name: JUDITH KHAN : 1945Sex: FAge: Race: WhiteMRN: [id number]. Location: EMERPatient Status: IVisit #: [id number] Date: 08/11/2017 12:35:00 AMCompleted Date: 08/11/2017 01:07 AMRequesting Provider: ALEXANDER OLSON Attending Provider: ALEXANDER OLSON Report Copy To: Signs & Symptoms: Intra-op portable abdomenHistory: R/O foreign bodyComments: R/O foreign bodyExam: PORTABLE ABDOMENAccession #: [id number] POR TABLE ABDOMEN 08/11/2017 1:07 AM EST [...] findings. Electronically signed by:Kristian Nascimento. Transcribed by: [email or web address], User Resident: NICOLETTE TOTHANElectronically Signed by: KRISTIAN NASCIMENTO @ 08/11/2017 12:16 PMI personally read this/these film(s) with this resident Normal [facility] Comment on above: Order Comment: R/O f oreign body PORTABLE CHEST 1 VIEWon PORTABLE CHEST 1 VIEW [facility] Nshrtxtyx[address] [place] [address] Patient Name: JUDITH KHAN : 1945Sex: FAge: Race: WhiteMRN: [id number]. Location: [id number] Status: IVisit #: [id number] Date: 08/11/2017 1:45:00 AMCompleted Date: 08/11/2017 02:13 AMRequesting Provider: CARMENZA WINTER Attending Provider: ALEXANDER OLSON Report Copy To: Signs & Symptoms: Post OPHistory: Patient history not availableComments: Check E.T. Position, also to chest OGT placementExam: PORTABLE CHEST 1 VIEWAccession #: [id number] POR TABLE CHEST 1 VIEW 08/11/2017 2:13 [...] findings. Electronically signed by:Kristian Nascimento. Transcribed by: [email or web address], User Resident: NICOLETTE GAUJARDOATINGANElectronically Signed by: KRISTIAN NASCIMENTO @ 08/11/2017 12:17 PMI personally read this/these film(s) with this resident Normal [facility] Comment on above: Order Comment: Check E.T. Position, also to chest OGT placement PROTHROMBIN TIMEon 8 INR Coag RelTime (PPP) 1.44 {INR} High 0.91-1.16 [facility] Comment on above: Order Comment: [...] OF ACTION, CLINICALEFFECTIVENESS, AND OPTIMAL THERAPEUTIC RANGE. [id number];108:231S-246S. Performed By: #### 1 53, ####[facility] Prothrombin time (PT) Coag time (PPP) 17.7 s High 12.3-14.8 [facility] Comment on above: Order Comment: No: D o not add to previous draw Result Comment: ALL RESULTS MUST BE INTERPRETED WITH RESPECT TO BLOOD DRAWING ARTIFACTOR DILUTION ERROR OF ANTICOAGULANT AT THE TIME OF SAMPLING. Performed By: #### 1 53, ####[facility]3000 [facility].[address] INR Coag RelTime (PPP) 1.22 {INR} High 0.91-1.16 [facility] Comment on above: Result Comment: ACCC P RECOMMENDED INR FOR WARFARIN THERAPY CONDITION INRPROPHYLAXIS OF VENOUS THROMBOSIS 2-3(HIGH-RISK SURGERY)TREATMENT OF VENOUS THROMBOSIS 2-3TREATMENT OF PULMONARY EMBOLISM 2-3PREVENTION OF SYSTEMIC EMBOLISM: 2-3 ACUTE MYOCARDIAL INFARCTION TISSUE HEART VALVES VALVULAR HEART DISEASE ATRIAL FIBRILLATION RECURRENT SYSTEMIC EMBOLISMMECHANICAL HEART VALVE 2.5-3.5 FROM: ORAL ANTICOAGULANTS. MECHANISM OF ACTION, CLINICALEFFECTIVENESS, AND OPTIMAL THERAPEUTIC RANGE. [id number];108:231S-246S. Performed By: #### 5 6101, 59643 ####[facility]3000 [facility].[address] Prothrombin time (PT) Coag time (PPP) 15.5 s High 12.3-14.8 [facility] Comment on above: Result Comment: ALL RESULTS MUST BE INTERPRETED WITH RESPECT TO BLOOD DRAWING ARTIFACTOR DILUTION ERROR OF ANTICOAGULANT AT THE TIME OF SAMPLING. Performed By: #### 5 6101, 17351 ####[facility]3000 [facility] [place] [address], [facility] RBC'S 4 UNITSon 08-11-2017 CROSSMATCH INTERP 1 COMP Normal [facility] Comment on above: Performed By: #### 8 6004 ####[place] [address] [facility] [place] [place] [address], [place] CROSSMATCH INTERP 2 COMP Normal [facility] Comment on above: Performed By: #### 8 6004 ####[facility] [place] [address], [place] CROSSMATCH INTERP 3 COMP Normal [facility] Comment on above: Performed By: #### 8 6004 ####[facility] [place] [address], [place] CROSSMATCH INTERP 4 COMP Normal [facility] Comment on above: Performed By: #### 8 6004 ####[facility] [place] [address], [facility] PRODUCT CODE 1 E0686 Normal [facility] Comment on above: Performed By: #### 8 6004 ####[facility] [place] [address], [facility] PRODUCT CODE 2 E0336 Normal [facility] Comment on above: Performed By: #### 8 6004 ####[facility] [place] [address], [place] PRODUCT CODE 3 E0336 Normal [facility] Comment on above: Performed By: #### 8 6004 ####[facility] [place] [address], [facility] PRODUCT CODE 4 E0336 Normal [facility] Comment on above: Performed By: #### 8 6004 ####[facility] [place] [address], [facility] PRODUCT STATUS 1 RE Normal [facility] Comment on above: Result Comment: Resu lt changed by IF on 08/11/2017 00:26. The previous value was XM.Result changed by IF on 08/11/2017 01:42. The previous value was IS.Result changed by IF on 08/14/2017 07:03. The previous value was XM. Performed By: #### 8 6004 ####[facility] [place] [address], [facility] PRODUCT STATUS 2 PT Normal [facility] Comment on above: Result Comment: Resu lt changed by IF on 08/11/2017 00:26. The previous value was XM.Result changed by IF on 08/12/2017 02:00. The previous value was IS. Performed By: #### 8 6004 ####[facility] [place] [address], [place] PRODUCT STATUS 3 RE Normal [facility] Comment on above: Result Comment: Resu lt changed by IF on 08/12/2017 15:16. The previous value was XX. Performed By: #### 8 6004 ####[facility] [place] [address], [place] PRODUCT STATUS 4 RE Normal [facility] Comment on above: Result Comment: Resu lt changed by IF on 08/11/2017 00:26. The previous value was XM.Result changed by IF on 08/11/2017 01:42. The previous value was IS.Result changed by IF on 08/14/2017 07:03. The previous value was XM. Performed By: #### 8 6004 ####[facility] [place] [address], [place] UNIT ABO 1 O Normal [facility] Comment on above: Performed By: #### 8 6004 ####[facility] [place] [address], [place] UNIT ABO 2 O Normal [facility] Comment on above: Performed By: #### 8 6004 ####[facility] [place] [address], [place] UNIT ABO 3 O Normal [facility] Comment on above: Performed By: #### 8 6004 ####[facility] [place] [address], [place] UNIT ABO 4 O Normal [facility] Comment on above: Performed By: #### 8 6004 ####[facility] [place] [address], [facility] UNIT ID 1 [id number] Normal [facility] Comment on above: Performed By: #### 8 6004 ####[facility] [place] [address], [facility] UNIT ID 2 [id number] Normal [facility] Comment on above: Performed By: #### 8 6004 ####[facility] [place] [address], [facility] UNIT ID 3 [id number] Normal [facility] Comment on above: Performed By: #### 8 6004 ####[facility] [place] [address], [facility] UNIT ID 4 [id number] Normal [facility] Comment on above: Performed By: #### 8 6004 ####[facility] [place] [address], [facility] UNIT RH 1 Negative Normal [facility] Comment on above: Performed By: #### 8 6004 ####[facility] [place] [address], [facility] UNIT RH 2 Negative Normal [facility] Comment on above: Performed By: #### 8 6004 ####[facility] [place] [address], [facility] UNIT RH 3 Negative Normal [facility] Comment on above: Performed By: #### 8 6004 ####[facility] [place] [address], [place] UNIT RH 4 Negative Normal [facility] Comment on above: Performed By: #### 8 6004 ####[facility] SERUM TESTon 08-11 TEST Negative Normal [facility] Comment on above: Performed By: #### 4 6473 ####[facility]3000 [facility].[address] TYPE AND CROSSMATCHon 2017 ABO INTERPRETATION O Normal [facility] Comment on above: Performed By: #### 6 2594 ####[facility] [facility], [place] [address] [place] [address] ANTIBODY SCREEN Negative Normal [facility] Comment on above: Performed By: #### 6 2594 ####[facility] [facility] [place] [address], [facility] RH INTERPRETATION Negative Normal [facility] Comment on above: Performed By: #### 6 2594 ####[facility]3000 [facility].[address] Vital Signs Date Time Vital Sign Value Performing Clinician Facility 06-23-2023 14:00-0500 Hourly Rounding [facility] 06-23-2023 14:00-0500 Promise to Return [facility] 06-23-2023 13:00-0500 Hourly Rounding [facility] 06-23-2023 13:00-0500 [facility] 06-23-2023 12:00-0500 Hourly Rounding [facility] 06-23-2023 12:00-0500 [facility] 06-23-2023 11:22-0500 Heart rate 107 /min [facility] 06-23-2023 11:22-0500 SaO2% (BldA) [Mass fraction] 94 % [facility] 06-23-2023 11:21-0500 Diastolic blood pressure 82 mm[Hg] [facility] 06-23-2023 11:21-0500 Mean blood pressure 108 mm[Hg] [facility] 06-23-2023 11:21-0500 Systolic blood pressure 162 mm[Hg] [facility] 06-23-2023 11:20-0500 Body temperature 97.7 [degF] [facility] 06-23-2023 08:20-0500 SaO2% (BldA) [Mass fraction] 98 % [facility] 06-23-2023 07:19-0500 Heart rate 84 /min [facility] 06-23-2023 07:19-0500 SaO2% (BldA) [Mass fraction] 100 % [facility] 06-23-2023 07:18-0500 Body temperature 97.52 [degF] [facility] 06-23-2023 07:18-0500 Diastolic blood pressure 81 mm[Hg] [facility] 06-23-2023 07:18-0500 Mean blood pressure 99 mm[Hg] [facility] 06-23-2023 07:18-0500 Systolic blood pressure 137 mm[Hg] [facility] 06-23-2023 06:17-0500 Blood Pressure Location [facility] 06-23-2023 06:17-0500 Body temperature 97.52 [degF] [facility] 06-23-2023 06:17-0500 Diastolic blood pressure 74 mm[Hg] [facility] 06-23-2023 06:17-0500 Heart rate 99 /min [facility] 06-23-2023 06:17-0500 Respiratory rate 17 /min [facility] 06-23-2023 06:17-0500 Systolic blood pressure 159 mm[Hg] [facility] 06-23-2023 05:01-0500 Heart rate 102 /min [facility] 06-23-2023 05:01-0500 Mean blood pressure 98 mm[Hg] [facility] 06-23-2023 05:01-0500 Respiratory rate 19 /min [facility] 06-23-2023 04:30-0500 Mean blood pressure 95 mm[Hg] [facility] 06-23-2023 04:30-0500 Respiratory rate 16 /min [facility] 06-23-2023 03:00-0500 Mean blood pressure 121 mm[Hg] [facility] 06-23-2023 03:00-0500 Respiratory rate 20 /min [facility] 06-23-2023 02:43-0500 Respiratory rate 18 /min [facility] 06-23-2023 02:30-0500 Respiratory rate 18 /min [facility] 06-23-2023 01:40-0500 gluc 96 mg/dL [facility] 06-23-2023 01:40-0500 gluc [facility] 06-23-2023 01:38-0500 gluc 96 mg/dL [facility] 06-23-2023 01:38-0500 gluc [facility] 06-23-2023 01:37-0500 Heart rate 117 /min [facility] 05-15-2023 13:50-0500 Body height 167.64 cm MD Kavon Sams Work Phone: [facility] 05-15-2023 13:50-0500 Body weight 57.15 kg MD Kavon Sams Work Phone: [facility] Encounters Encounter Date Encounter Type Care Provider Facility Start: 08-22-2023 End: 08-22-2023 ambulatory [facility] Start: 08-20-2023 End: 08-21-2023 ambulatory Rafa Abebe MD Facility: [facility] Start: 08-14-2023 End: 08-14-2023 ambulatory Cathie Reid Facility:[facility] Start: 08-13-2023 End: 08-14-2023 ambulatory [facility] Start: 08-13-2023 End: 08-13-2023 ambulatory [facility] Start: 08-07-2023 End: 08-07-2023 ambulatory [facility] Start: 07-30-2023 End: 07-31-2023 ambulatory Rafa Abebe MD Facility: [facility] Start: 07-16-2023 End: 07-16-2023 Emergency department patient visit Demarco Beaver Facility:[facility] Start: 07-06-2023 End: 07-06-2023 ambulatory [facility] Start: 06-23-2023 End: 06-23-2023 ambulatory Mela Espinal Facility:[facility] Start: 06-23-2023 End: 06-23-2023 Observation Mela Espinal [facility] Start: 05-15-2023 End: 05-15-2023 ambulatory Cathie Reid Facility:[facility] Start: 05-15-2023 End: 05-15-2023 ambulatory MD Kavon Sams Work Phone: [facility] Work Phone: Start: 05-15-2023 End: 05-15-2023 Patient encounter procedure MD Kavon Sams Work Phone: [facility] [place] Work Phone: Start: 01-12-2023 End: 01-12-2023 ambulatory MILA ROWLEY [facility] Start: 10-09-2022 End: 10-10-[address] KAVON SAMS . Facility: Start: 05-24-2022 End: 05-25-[address] KAVON SAMS . Facility: Start: 05-08-2022 End: 05-10-2022 Evaluation and management of inpatient DR KAVON SAMS . Facility: Start: 03-29-2022 End: 03-29-[address] MISAEL PEDRAZA . Facility:[facility] Start: 12-27-2021 End: 12-28-[address] KAVON SAMS . Facility: Start: 08-13-2017 End: 08-14-2017 Ambulatory DEFAULT PHYSICIAN Facility:[facility] Start: 08-11-2017 End: 08-15-2017 Evaluation and management of inpatient REFERRED SELF Facility:[facility] Procedures Date Procedure Procedure Detail Performing Clinician Start: 05-15-2023 MRI of head MD Kavon Sams Work Phone: Start: 03-04-2020 Removal of stent Magda Espinal Start: 08-14-2017 INTRODUCTION OF SERUM/TOX/VACCINE INTO MUSCLE, PERC APPROACH SUPA MAY Start: 08-11-2017 MEASURE OF ARTERIAL SATURATION, PERIPHERAL, PERC APPROACH SUPA Irving HEIDBob Start: 08-11-2017 RESECTION OF SPLEEN, OPEN APPROACH ATHANASIOS BRAMOS Start: 08-11-2017 TRANSFUSE NONAUT FRO KRYSTYNA PLASMA IN PERIPH VEIN, PERC SUPA Irving HEIDT Start: 08-11-2017 TRANSFUSE NONAUT HARRY TELETS IN PERIPH VEIN, PERC SUPA Irving HEIDT Start: 08-11-2017 TRANSFUSE NONAUT RED BLOOD CELLS IN PERIPH VEIN, PERC SUPA Irving HEIDT Appendectomy Mela Genjose Cataract (morphologi c abnormality) Mela Gennari Hysterectomy Mela Gennari Splenectomy Mela Gennari Payers Date Payer Category Payer Medicare [id number] 2023 Medicare 2023 [facility] 2023 Self-pay [id number] 1958 Medicare [id number] 1959 Unknown [id number] 1945 Unknown [id number] 2.16.84 [id number] 1945 Unknown [id number] 2.16.84 [id number] 1945 Unknown [id number] 2.16.84 [id number] 1945 Unknown [id number] 2.16.84 [id number] 1945 Unknown [id number] 2.16.84 [id number] 1945 Unknown [id number] 2.16.8 [id number] 1945 Unknown [id number] 2.16.8 [id number] 1945 Unknown [id number] 2.16. [id number] 1945 Unknown [id number] 2.16. [id number] Medicare [id number] Unknown [id number] 2.16.8 [id number] Unknown [id number] 2.16.8 [id number] Social History Date Type Detail Facility [facility] Work Phone: Start: 1945 Sex Assigned At Female [facility] Start: 03-04-2020 Tobacco smoking status Ex-smoker (fi nding) [facility] Sex Assigned At Female [facility] Functional Status Date Assessment Result Facility 06-23-2023 Functional Status N/A [facility] 06-23-2023 Functional Status [facility] Clinical Notes 08-04-2020 to 08-27-2023 Note Date & Type Note Facility 08-27-2023 Note Pre op Cardiovascula r risk stratification RCRI: 1 points Class II Risk 6.0 % 30-day risk of , VT, or cardiac arrest From a cardiology perspective pt may proceed with planned hernia surgery, she is low risk for a moderate- high risk abdominal surgery. Please monitor hemodynamics and prevent any major fluid shifts please. Mila Rowley [facility] Cardiology Available 7a-5pm via [employer] Chat Pager [phone] 05/2022 Abnormal stress with EKG changes but no perfusion defects as per report. No cardiac complaints TTE 06/01/23 v [facility] 08-22-2023 Note Subjective Patient ID: Judith Khan is a 78 y.o. female who presents for Post-op (Judith is here today for a post op visit for a hiatal hernia, s/p 08/13/[address] ). HPI 78 years old white female is visiting for epigastric pain and periumbilical abdominal wall bulging. She denies of nausea, vomiting. She is status post EGD. Review of Systems Constitutional: Negative. HENT: Negative. Respiratory: Negative. Cardiovascular: Negative. Gastrointestinal: Positive for abdominal pain. Genitourinary: Negative. Neurological: Negative. Hematological: Bruises/bleeds easily. Objective Visit Vitals BP 161/74 (BP Location: Left arm, Patient Position: Sitting) Pulse 105 Temp 36.3 ???C (97.4 ???F) (Oral) Physical Exam HENT: Head: Atraumatic. Cardiovascular: Rate and Rhythm: Normal rate. Pulmonary: Effort: Pulmonary effort is normal. Abdominal: General: Abdomen is flat. Palpations: Abdomen is soft. Musculoskeletal: Cervical back: Neck supple. Neurological: Mental Status: She is alert and oriented to person, place, and time. (ESOPHAGOGASTRODUODENOSCOPY) Operative Note Date: 08/13/2023 Location: [facility] OR Name: Judith Khan, : 1945, Diagnosis Pre-op Diagnosis * Hiatal hernia [K44.9] Post-op Diagnosis * Chronic gastric ulcer without hemorrhage and without perforation [K25.7] Procedures EGD (ESOPHAGOGASTRODUODENOSCOPY) 20279 - [place] ESOPHAGOGASTRODUODENOSCOPY [facility]ANSORAL DIAGNOSTIC Surgeons * Verena Sheehan - Primary Procedure Summary Anesthesia: Monitor Anesthesia Care ASA: III Estimated Blood Loss: Minimal Total IV Fluids: 500 mL Drains: * None in log * Staff: Rubber Compounder Supervisor: Jian Kat RN Scrub Person: Eva Zambrano [...] NOTE Patient: Judith Khan : 1945 Facility: [facility] Referring/PCP: Kavon Sams MD Procedure: Esophagogastroduodenoscopy --diagnostic [...] 1. -Follow up with me. 2. -PPIs [phone] pager [phone] Assessment/Plan Incisional hernia Gastric ulcer Robotic incisional hernia repair with mesh Cardiac clearance PPIs No diagnosis found. No orders of the defined types were placed in this encounter. No results found for this or any previous visit (from the past 36 hour(s)). No follow-ups on file. [facility] 08-13-2023 Note Patient: Judith stoner Procedure Summary Date: 08/13/23 Room / Location: [facility] OPERATING ROOM 01 / [facility] Operating Room Anesthesia Start: 731 Anesthesia Stop: [...] per anesthesia protocol. No notable events documented. [facility] 08-13-2023 Note [facility] General Surgery HISTORY AND PHYSICAL Reason for Admission: EGD History of Present Illness: Judith Khan is a 78 y.o. female with a hiatal hernia. Here today for elective EGD. No changes since prior exam no new acute concerns. Past Medical History: Diagnosis Date COPD (chronic obstructive pulmonary disease) ([facility]) Emphysema lung ([facility]) HISTORY OF Hiatal hernia 05/2023 Hyperlipidemia Hypertension Parkinson disease Renal stones TIA (transient ischemic attack) 06/2023 SYMPTOMS UPJ obstruction, acquired UTI (urinary tract infection) 06/2023 Past Surgical History: Procedure Laterality Date CARDIAC CATHETERIZATION FOOT SURGERY HYSTERECTOMY Allergies Allergen Reactions Sulfa (Sulfonamide Antibiotics) Anaphylaxis Current Facility-Administered Medications: lactated Ringer's infusion, 30 mL/hr, intravenous, Continuous, Arlene Castillo MD, Last Rate: 30 mL/hr at 08/13/23 0634, 30 mL/hr at 08/13/23 0634 Insert peripheral IV, , , Once AND Saline lock IV, , , Once AND sodium chloride flush 10 mL, 10 mL, intravenous, q8h PRN, rAlene Castillo MD Social History Socioeconomic History Marital status: Spouse name: Not on file Number of children: Not on file Years of education: Not on file Highest education level: Not on file Occupational History Not on file Tobacco Use Smoking status: Former Types: Cigarettes Quit date: 2018 Years since quittin.1 Smokeless tobacco: Never Substance [...] PROTIME Imaging: XR chest 1 view Narrative: [facility] Department of Radiology [address] [place] [id number] Patient Name: JUDITH KHAN : 1945 Sex: F Age: Race: White^White Pt. Location: [id number] Patient Status: I Ordered Date: 08/15/2017 7:05:00 AM Completed Date: 08/15/2017 07:54 AM Requesting Provider: JOSH ESCUDERO Attending Provider: ALEXANDER OLSON Report Copy To: Signs & Symptoms: O2 Desaturation History: Patient history not available Comments: R/O Effusion Exam: PORTABLE CHEST 1 VIEW PORTABLE CHEST 1 VIEW 08/15/2017 7:54 AM EST SIGNS AND SYMPTOMS: O2 Desaturation TECHNOLOGIST COMMENTS: SOB Q (more content not included)... [facility] 08-13-2023 Note Patient: Judith stoner Procedure Information Date/Time: 08/13/23729 Procedure: EGD (ESOPHAGOGASTRODUODENOSCOPY) Location: [facility] OPERATING ROOM 01 / [facility] Operating Room Surgeons: Verena Sheehan MD Relevant [...] with attending and resident. Additional Equipment Requests [facility] 08-08-2023 Note PRE OP INSTRUCTIONS REVIEWED WITH DAUGHTER CHRISTINA TRIPATHI MEDIATIONS TO HOLD PRIOR TO PROCEDURE DATE 3/4 MEDICATIONS TO TAKE DAY OF SURGERY WITH SIP OF WATER XANAX AMLODIPINE ISOSORBIDE GABAPENTIN IF YOU ARE GOING HOME AFTER YOUR SURGERY OR PROCEDURE, FOR YOUR SAFETY, YOUR SURGERY WILL BE CANCELLED IF BOTH OF THE FOLLOWING ARE NOT AVAILABLE: An adult driver examiner over the age of 18, that can [...] lenses. Do not wear perfume, make-up, nail sammarinese, or lotions on the day of your [...] need to make any changes, please call [phone]. Notify your surgeon if you develop any illness such as a cold, cough, fever, sore throat or vomiting between now and your surgery. Thank you for entrusting us with your care. [facility] Surgical Services Team [facility] 08-07-2023 Note Subjective Patient ID: Judith Davis Emery is a 78 y.o. female who presents [...] past 36 hour(s)). No follow-ups on file. [facility] 07-08-2023 Note Admission and Discha rge Information [...] JOANNA Kauffman Within 1 to 2 weeks [place] [address] [place] [address]- Additional Instructions: Patient Education Weakness, Wzvb-mp-Vupi Urinary Tract Infection, Adult [facility] Comment on above: Result Comment: Elec tronically Signed By: MATTHEW HERRERA, Haile\.br\Date and Time Signed: 07/08/23 16:24 EST 07-06-2023 Note Hypertension is stab le and well controlled Continue all meds as prescribed- norvasc, lisinopril- hydrochlorothiazide, metoprolol [facility] 07-06-2023 Note Hiatal hernia with c ompression on Lt atrium noted on TTE Referral to general surgery ordered [facility] 07-06-2023 Note Patient here for 6 m o follow up fatigue, hypertension, and hyperlipidemia. Metoprolol was put on hold at last apt in Jan 2023 to see if fatigue improved. A few weeks later she was admitted to [facility] for chest pain. Had another echo in May 2023, which showed hiatal hernia. Daughter states was admitted to [facility] recently for TIA symptoms and daughter states she was treated for UTI. She's still not taking metoprolol and feels less tired without it. She denies chest pain, SOB, lightheadedness/syncope, and palpitations. Review of Systems Constitutional: Positive for malaise/fatigue (improving). Musculoskeletal: Positive for arthritis, back pain and joint pain. Neurological: Positive for tremors. All other systems reviewed and are negative. [facility] 07-06-2023 Note [facility] CARDIOLOGY PROGR ESS NOTE HPI: Judith Khan is a 78 y.o. female here for review echocardiogram Patient here for 6 mo follow up fatigue, hypertension, and hyperlipidemia. Metoprolol was put on hold at last apt in Jan 2023 to see if fatigue improved. A few weeks later she was admitted to [facility] for chest pain. Had another echo in May 2023, which showed hiatal hernia. Daughter states was admitted to [facility] recently for TIA symptoms and daughter states [...] Plt Count 355 (150-450) 10^3/uL Emergency Department [id number] [facility] Patient name: JUDITH KHAN MPV 11.2 (9.5-13.5) fL Neut % (Auto) 22.9 L (43.0-75.0) % Lymph % (Auto) 55.8 (20.5-60.0) % Wake % (Auto) 13.5 H (1.7-12.0) % Eos % (Auto) 6.4 (0.9-7.0) % Baso % (Auto) 1.3 (0.2-2.0) % Neut # (Auto) 1.9 (1.4-6.5) 10^3/uL Lymph # (Auto) 4.6 H (1.2-3.8) 10^3/uL Wake # (Auto) 1.1 H (0.3-0.8) 10^3/uL Eos [...] >60 (>=60) Est (more content not included)... [facility] 06-30-2023 Note Microbiology PROCEDURE: Blood [...] test was performed at: [facility], [address] [place] [address], [facility] , , [facility] Comment on above: Performed By: #### 1 [id number] ####[place] [address] 06-30-2023 Note Microbiology PROCEDURE: Blood Culture Charcoal [...] Locations R1: This test was performed at: [facility], [address] [place] [address], [id number] , , [facility] Comment on above: Performed By: #### 2 [id number] #### [facility] [address] [place], [place] [id number] 06-24-2023 Note Chief Complaint weakness Reason for [...] says she had an open MRI in [place] within the past few months which she [...] but reportedly she has MRI images in [place] within the past few months that did [...] Medical History On (more content not included)... [facility] Comment on above: Result Comment: Elec tronically Signed By: Tony Fuentes DO\.andreia\Date and Time Signed: 06/24/23 09:29 EST 06-23-2023 Hospital Discharge instructions Patient Education 06/23/2023 16:31:59 Weakness, Plji-xd-Rmcf Weakness Weakness is a lack of strength. [...] about working with a physical therapist or link trainer maintenance man to help you get stronger. General instructions Take rxgo-aac-sqrrcum and prescription medicines only as told by [...] provider. Document Revised: 04/30/2022 Document Reviewed: 04/30/2022 [employer] Patient Education 2022 [employer]. 06/23/2023 16:31:55 Urinary Tract Infection, Adult Urinary [...] Treatment for this condition includes: Antibiotic medicine. Heet-yap-edztsjg medicines to treat discomfort. Drinking enough water [...] Follow these instructions at home: Medicines Take xlbx-hvo-beqsagn and prescription medicines only as told by [...] provider. Document Revised: 01/07/2021 Document Reviewed: 01/07/2021 [employer] Patient Education 2022 [employer]. Follow Up Care 06/23/2023 01:35:45 With:Ramiro Louise MD, NEU Address: [address] [address]- When:1 to 2 weeks [facility] 06-23-2023 Note Chief Complaint states went [...] out of bed to go the bathroom. Mikana weak all over and just felt like [...] 01:55:00) Lymph Auto: 15.1 % (06/23/23 01:55:00) Wake Auto: 11.3 % (06/23/23 01:55:00) Eos Auto: 0.8 % (06/23/23 01:55:00) Basophil Auto: 0.4 % (06/23/23 01:55:00) Neutro Absolute: 10.5 E9/L High (06/23/23 01:55:00) Lymph Absolute: 2.2 E9/L (06/23/23 01:55:00) Wake Absolute: 1.6 E9/L High (06/23/23 01:55:00) Eos [...] 1.8 mg/dL (06/23/23 (more content not included)... [facility] Comment on above: Result Comment: Elec tronically Signed By: Haile CASTRO MD\.andreia\Date and Time Signed: 06/23/23 15:55 EST 06-23-2023 Note CRM entered the room to discuss dc planning. PCP, DME and insurance discussed. Patient is alert and involved in plan of care. Contact information provided and whiteboard updated. PT rec OPPT, pt is agreeable. Medicare Rights form discussed. Copy provided. Pt's family will transport. Ant dc 06/23 or 06/24. CRM to follow. [facility] Comment on above: Result Comment: Elec tronically [...] but reportedly she has MRI images in [place] within the past few months that did [...] just had an MRI in Dec at [facility]. Consult Neurology PT Eval ordered 2. Hypoxia [...] eval Extracted from: Title:ED Note Author:Thea Stacy, Astrit H Da te:06/23/23 1. Weakness (R53.1: Weakness ) 2. [...] Blood Culture Charcoal CBC w/ Auto Diff [place] Stroke Scale Communication Order Physician to Nursing Continuous Pulse Oximetry CT Head or Brain w/o Contrast ECG 12 Lead Adult ED Cardiac Monitoring ED Physician consult Hospitalist for continued care eGFR Hepatic Function Panel Lactic Acid Magnesium Level NPO Diet Oxygen Therapy PT & PTT Rapid COVID Antigen ([facility]) Routine Capillary Glucose POC Saline Lock Insert Stroke Quality Measures Troponin 0 Hr. Troponin 3 Hr. Troponin 6 Hr. Troponin 9 Hr. TSH With T4fr Reflex UA With Cult Reflex Urine Culture Vital Signs XR Chest Single View Diagnostic Tests Pending * Blood Culture Charcoal 06/23/23 * Blood Culture Charcoal 06/23/23 * Urine Culture 06/23/23 [facility]01-13-2024 NotePT Evaluation done this date. Pt. with on AM-PAC this date. She feels she is at her baseline at this time, Recommend she uses her FWW at home as needed. She may benefit from outpatient PT for her Parkinson's. No further acute PT needs.[facility] 01-12-2023 NoteContinue [facility]in[facility] Note Hypertension is elevated in office most likely r/t white coat syndrome States b/p at home is typically 120's/70'[facility] 01-12-2023 NoteWill have pt hold metoprolol and see if her fatigue improves Continue to monitor b/p at home and call office for b/p increase greater than 130/80 or for any concerns.[facility]08-04-2023 Note Patient here for 6 [...] tremors. All other systems reviewed and are negative.[facility] 01-12-2023 NoteUTP CARDIOLOGY PROGRESS NOTE [...] statin RTC 3-6 months or earlier if neededNor[facility]02-24-2021 NotePatient Outreach (COVAMN) JUDITH KHAN ([id number]) 1945 F Date Time Provider Department 08/04/20 EMETERIO OSEGUERA During your visit today, we recorded the following information about you: Allergies As of Date: 08/04/2020 Noted Allergy Reaction ALEVE (NAPROXEN SODIUM) 07/02/2013 16 - Unknown SULFA (SULFONAMIDE ANTIBIOTICS) 07/02/2013 10 - Anaphylaxis Date Reviewed: 03/23/2020 Reviewed by: Ashley Stephens Ma - Fully Assessed Order(s):SARS-COVID VACCINE 1ST DOSE APPT [[id number]] Order #: [id number] FUTURE Prescriptions as of 08/04/2020 Sig: ASPIRIN [...] UTI (urinary tract infecti*03/23/2020 Encounter Status:Closed by PILY, PRODUSER on 08/09/20[facility] Evaluation noteNo assessment information availableProtestant Deaconess [facility] Work Phone: Hospital course Narrative No data available for this section [facility] No data available for this section [facility] Summary Purpose Family History No Family [...] and content) DATE CREATED AUTHOR 11/30/2017 [facility] DATE CREATED AUTHOR AUTHOR'S ORGANIZ ATION 06/19/2021 [facility] DATE CREATED AUTHOR AUTHOR'S ORGANIZ ATION 10/13/2022 [facility] DATE CREATED AUTHOR AUTHOR'S ORGANIZ ATION 07/19/2023 [facility] DATE CREATED AUTHOR AUTHOR'S ORGANIZ ATION 08/21/2023 [facility] DATE CREATED AUTHOR AUTHOR'S ORGANIZ ATION 08/22/2023 [facility] DATE CREATED AUTHOR AUTHOR'S ORGANIZ ATION 08/28/2023 [facility] Care Teams (unrecognized sec tion [...] BE BASED ON THE PRIMARY CLINICAL RECORDS. [facility] [employer] provides no warranty or guarantee of the accuracy or completeness of information in this document.
[2023-09-03 10:28] VITALS: BP 159/96; PULSE 114; RESP 16; TEMP 36.7; O2SAT 95
[2023-09-03 11:10] VITALS: BP 189/87; PULSE 101; RESP 18; O2SAT 93
[2023-09-03] MEDS: BUPIVACAINE HCL 0.25% PF 25 MG/10 ML VIAL 6 ML INJ (11:10)
[2023-09-03] MEDS: LIDOCAINE HCL 2% PF 100 MG/5 ML VIAL 2 ML INJ (11:10)
[2023-09-03 11:12] VITALS: BP 167/75; PULSE 104; RESP 18; O2SAT 93
--- NOTE | 2023-09-03 11:13 | W.PM.PROCNOT ---
Date of procedure: 09/03/23 Pre-op diagnosis: Lumbar spondylosis Post-op diagnosis: same as pre-op Procedure: Procedure: Bilateral L4-5, L5-S1 medial branch block Medications: Bupivacaine 0.25% 6cc The patient was seen and examined in the preoperative holding area.? An informed consent was obtained and placed on the chart.? The patient was brought to the medical procedure unit and placed in the prone position.? A timeout was completed verifying correct patient, procedure site, positioning, plan, and special equipment.? Using aseptic technique, the needle was placed at left L4. Under direct fluoroscopic visualization a Quincke-tipped spinal needle was advanced to the junction of the superior articulating process with the transverse process at the designated medial branch segment.? Preceded by negative aspiration, the above-mentioned injectate was placed in 1 mL aliquots.? The procedure was repeated at left L5, S1.? The needle was removed and insertion site was covered. The same procedure, at the same levels, was completed on the right side. The patient was taken to the postprocedural recovery area and monitored for an appropriate length of time before found suitable for discharge in the company of a responsible adult. Surgeon: Rafa Abebe Pathology: none sent Condition: stable Disposition: no change
== END 2023-09-03 11:17 | disposition home or self-care (01) ==
PROVIDERS: PCP Family Medicine; Visit Provider Anesthesiology
DX: M47.816 Spondylosis without myelopathy or radiculopathy, lumbar region (principal)
CPT/HCPCS: 64493; 64494

== ENCOUNTER 2023-09-11 11:16 | Outpatient (OUT) | payer MEDICARE, OTHER, SELFPAY ==
[2023-09-11 11:49] LABS: Basophils Absolute Auto 0.1 10^3/uL (0.0-0.1); Basophils Percent Auto 1.1 % (0.2-2.0); Eosinophils Absolute Auto 0.5 10^3/uL (0.0-0.7); Eosinophils Percent Auto 6.2 % (0.9-7.0); Hematocrit 41.5 % (36.0-48.0); Hemoglobin 13.3 g/dL (12.0-16.0); Immature Granulocytes Abs Auto 0.02 10^3/uL (0.00-0.03); Immature Granulocytes Pct Auto 0.2 % (0.0-0.5); Lymphocytes Absolute Auto 2.7 10^3/uL (1.2-3.8); Lymphocytes Percent Auto 32.6 % (20.5-60.0); Mean Corpuscular Hemoglobin 30.9 pg (26.7-34.0); Mean Corpuscular Volume 96.3 fL (81.0-99.0); Mean Platelet Volume 10.9 fL (9.5-13.5); Monocytes Absolute Auto 1.1 10^3/uL (0.3-0.8); Monocytes Percent Auto 13.2 % (1.7-12.0); Neutrophils Absolute Auto 3.9 10^3/uL (1.4-6.5); Neutrophils Percent Auto 46.7 % (43.0-75.0); Platelet Count 277 10^3/uL (150-450); Red Blood Count 4.31 10^6/uL (4.20-5.40); Red Cell Distribution Width 14.1 % (11.0-15.0); White Blood Count 8.4 10^3/uL (4.0-11.0)
[2023-09-11 11:58] LABS: Prothrombin Time 9.8 sec (9.0-11.6)
[2023-09-11 12:05] LABS: INR <0.93
[2023-09-11 13:15] LABS: Anion Gap 11.6; BUN Creatinine Ratio 15.2; Calcium 10.7 mg/dL (8.5-10.1); Carbon Dioxide 30.9 mmol/L (21.0-32.0); Chloride 103 mmol/L (98-107); Estimated GFR (African America 57 (>=60); Estimated GFR (Non-African Ame 47 (>=60); Glucose 86 mg/dL (74-106); Potassium 3.5 mmol/L (3.5-5.1); Sodium 142 mmol/L (136-145)
== END 2023-09-11 11:17 | disposition home or self-care (01) ==
LOC: LAB 11:18
PROVIDERS: PCP Family Medicine
DX: K43.2 Incisional hernia without obstruction or gangrene (principal); R23.3 Spontaneous ecchymoses
CPT/HCPCS: 36415; 80048; 85025; 85610; 87081

== ENCOUNTER 2023-09-12 13:25 | Outpatient (OUT) | payer MEDICARE, OTHER, SELFPAY ==
--- NOTE | 2023-09-12 13:38 | PM.CN ---
Consult Note: HPI Data of Consult Patient: known to practice within the last 3 years Consult date: 08/20/23 Requesting Physician: Shana Marie NP Primary Care Provider: Kavon Leary MD Consult Narrative Reason for consult: neck, low back pain Narrative: 78yof who presents for assessment. persistence of neck and low back pain for months. imaging reviewed, which shows multilevel facet arthropathy and spondylosis throughout cervical and lumbar spines. continues in provider directed home exercise program >6 weeks and has continues in physical therapy to date, without significant benefit. has had good relief with addition of flexeril and gabapentin. denies adverse med side effects. Recently underwent bilateral L4-5 l5-s1 facet medial branch block #1 with >80% improvement in pain for 1 week. Patient to have hernia repair 09/17/23. cc:: CC: Shana Marie NP Review of Systems ROS Status of ROS 10 or more systems reviewed and unremarkable except as noted in history and below Musculoskeletal Reports: back pain PFSH PFSH Medical History Acute diarrhea ?R19.7 - Diarrhea, unspecified (ICD-10) Acute kidney injury ?N17.9 - Acute kidney failure, unspecified (ICD-10) Hiatal hernia ?K44.9 - Diaphragmatic hernia without obstruction or gangrene (ICD-10) COPD (chronic obstructive pulmonary disease) ?J44.9 - Chronic obstructive pulmonary disease, unspecified (ICD-10) Parkinsons ?G20 - Parkinson's disease (ICD-10) Hypertension ?I10 - Essential (primary) hypertension (ICD-10) Surgical History History of appendectomy ?Z90.49 - Acquired absence of other specified parts of digestive tract (ICD-10) H/O: hysterectomy ?Z90.710 - Acquired absence of both cervix and uterus (ICD-10) H/O splenectomy ?Z90.81 - Acquired absence of spleen (ICD-10) Family History Brother Family history of stroke Family history of hypertension Mother Family history of stroke Family history of hypertension Father Family history of cancer Social History Within the past year, how often did you have a drink containing alcohol: never Within the past year, how many standard drinks containing alcohol did you have on a typical day: 1 or 2 Within the past year, how often did you have six or more drinks on one occasion: never Total score: 0 Score interpretation: A score less than 3 is consistent with normal alcohol consumption. Smoking status: Former smoker Non-prescribed substance use: denies use Previous occupational history: retired Highest level of school completed/degree received: high school graduate Are you now , , , , never or living with a partner: In a typical week, how many times do you talk on the telephone with family, friends, or neighbors: 3 or more times per week How often do you get together with friends or relatives: 3 or more times per week How often do you attend protestant or lutheran services: 4 or more times per year Do you belong to any clubs or organizations such as protestant groups unions, [employer] or athletic groups, or school groups: no Total score: 2 Score interpretation: A score of greater than or equal to 2 indicates the lowest level of social isolation. Little interest or pleasure in doing things: not at all Feeling down, depressed, or hopeless: not at all Feel stressed/tense/nervous/anxious/difficulty sleeping: not at all Gender Identity: female Meds Home Medications and Allergies Home Medications ?Medication ?Instructions ?Recorded ?Confirmed ?Type alprazolam 1 mg tablet 1.5 mg PO BEDTIME PRN sleep 02/08/23 09/03/23 History amlodipine 5 mg tablet 5 mg PO DAILY 02/08/23 09/03/23 History potassium chloride 20 mEq 20 meq PO BID 02/08/23 09/03/23 History tablet,extended release(part/cryst) (Klor-Con M) pravastatin 20 mg tablet 20 mg PO DAILY 02/08/23 09/03/23 History ascorbic acid (vitamin C) 1,000 mg 1 g PO DAILY 07/30/23 09/03/23 History capsule cholecalciferol (vitamin D3) 125 125 mcg PO DAILY 07/30/23 09/03/23 History mcg (5,000 unit) capsule cyclobenzaprine 10 mg tablet 10 mg PO BID PRN muscle spasm 07/30/23 09/03/23 History gabapentin 300 mg capsule 300 mg PO TID 07/30/23 09/03/23 History ropinirole 0.25 mg tablet 0.5 mg PO TID 07/30/23 09/03/23 History aspirin 81 mg chewable tablet 81 mg PO DAILY 08/10/23 09/03/23 History lutein 25 mg-zeaxanthin 5 mg 1 cap PO DAILY 08/10/23 09/03/23 History capsule multivitamin 1 tab PO DAILY 08/10/23 09/03/23 History rasagiline 1 mg tablet 1 mg PO DAILY 08/10/23 09/03/23 History Allergies Allergy/AdvReac Type Severity Reaction Status Date / Time Sulfa (Sulfonamide Allergy Unknown Verified 09/03/23 10:34 Antibiotics) Exam Narrative Exam Narrative: Psych-alert and oriented x 3. Attentive and appropriate, constitutionally normal, displays normal mood and affect per situation.? There are no obvious deficits in memory, reasoning, or intellect.? Skin-no obvious rashes, bruising, erythema noted to the patient's area of pain. Extremities- extremities are warm with minimal edema and palpable pulses. Lumbar-no significant tenderness to palpation noted in the lumbar spine and paraspinal musculature.? Pain is elicited with extension, and lateral rotation of the lumbar spine. Range of motion is slightly diminished with these motions due to pain. Facet loading maneuvers are positive bilaterally and do appear to be concordant with the patient's normal complaints of pain.? Coordination remains intact.? Gait remains non-antalgic. Constitutional Documenting provider has reviewed patient's vital signs: yes Common normals: no apparent distress, oriented x3, healthy appearing, alert and well nourished General appearance: cooperative [facility] Common normals: normocephalic, hearing grossly normal bilaterally and moist oral mucous membranes Head and scalp: normocephalic Eye Common normals: PERRL Pupil: PERRL Neck & C-Spine Common normals: full ROM General: normal visual inspection Chest Common normals: inspection of chest normal Respiratory Common normals: normal respiratory effort, no retractions and no use of accessory muscles Neuro Common normals: oriented x3, CN's II-XII intact bilaterally, moves all extremities, no focal motor deficits, no sensory deficits noted and deep tendon reflexes 2+ bilaterally Sensorium/orientation: alert Motor exam: strength 5/5 throughout and no movement abnormalities noted Psych Common normals: mental status grossly normal, thought process normal, cooperative, affect normal, speech normal and activity/motor behavior normal Speech: normal speech Thought process: normal thought process Results Additional Findings Additional findings: If on a controlled substance or opioids, I have checked an [place]AR[place] report on this patient and there are no aberrancies noted in the prescribing history.??If on a controlled substance or opioid a drug screen was completed and reviewed within the last year, and if there has not been a drug screen completed we ordered one today to monitor higher risk, state monitored pain medication use. As part of providing excellent, safe, comprehensive care, the following was completed at our patient's visit: 1. A medication reconciliation and review to ensure accurate knowledge of current/active medications, including asking our patients to inform us about any itef-orz-cvamvia medications or herbal remedies/nutritional supplements/alternative remedies. 2. A review to specifically ensure our patients have had annual screening for screening for depression, screening for tobacco use, and screening for unhealthy alcohol use. For concerning screenings had a discussion with the patient, provided patient education, and recommended follow-up with primary care provider when appropriate. If patient noted with a risk of falling, they received education on strength, gait, and balance training to prevent future risk of falling. Assessment and Plan Assessment and Plan (1) Lumbar spondylosis: Plan 78yof who presents for assessment. failed conservative measures, as noted. imaging reviewed, as noted. given symptoms and imaging, prudent to attempt bilateral l4-5, l5-s1 medial branch block #2 under fluoroscopic guidance with intention of proceeding to rfa. she is in agreement. meds reviewed, no changes. follow up after procedure.
== END 2023-09-12 13:26 | disposition home or self-care (01) ==
LOC: PM 13:25
PROVIDERS: PCP Family Medicine; Visit Provider Nurse Practitioner
DX: M47.816 Spondylosis without myelopathy or radiculopathy, lumbar region (principal)
CPT/HCPCS: G0463

== ENCOUNTER 2023-10-04 10:29 | Outpatient (RCR) | payer MEDICARE, OTHER, SELFPAY | END 2023-12-27 16:26 | disposition home or self-care (01) | LOC: ST 10:29 | PROVIDERS: PCP Family Medicine; Visit Provider Nurse Practitioner Family | DX: G20.A1 Parkinson's disease without dyskinesia, without mention of fluctuations (principal); R47.1 Dysarthria and anarthria | CPT/HCPCS: 92507; 92523 ==

== ENCOUNTER 2023-10-04 10:29 | Outpatient (RCR) | payer MEDICARE, OTHER, SELFPAY | END 2023-11-30 13:34 | disposition home or self-care (01) | LOC: OT 10:29 | PROVIDERS: PCP Family Medicine; Visit Provider Nurse Practitioner Family | DX: G20.A1 Parkinson's disease without dyskinesia, without mention of fluctuations (principal) | CPT/HCPCS: 97110; 97165; 97530 ==

== ENCOUNTER 2023-10-22 08:33 | Day surgery (SDC) | payer MEDICARE, OTHER, SELFPAY ==
[2023-10-22 09:24] VITALS: BP 143/76; PULSE 98; TEMP 36.1; O2SAT 94
[2023-10-22 10:10] VITALS: BP 166/72; PULSE 96; O2SAT 92
[2023-10-22] MEDS: BUPIVACAINE HCL 0.25% PF 25 MG/10 ML VIAL INJ (10:11)
[2023-10-22] MEDS: LIDOCAINE HCL 2% PF 100 MG/5 ML VIAL 10 ML INJ (10:12)
[2023-10-22 10:13] VITALS: BP 150/58; PULSE 90; O2SAT 98
--- NOTE | 2023-10-22 10:13 | W.PM.PROCNOT ---
Date of procedure: 10/22/23 Pre-op diagnosis: Lumbar spondylosis Post-op diagnosis: same as pre-op Procedure: Procedure: Bilateral L4-5, l5-S1 medial branch block Medications: Bupivacaine 0.25% 6cc The patient was seen and examined in the preoperative holding area.? An informed consent was obtained and placed on the chart.? The patient was brought to the medical procedure unit and placed in the prone position.? A timeout was completed verifying correct patient, procedure site, positioning, plan, and special equipment.? Using aseptic technique, the needle was placed at left L4. Under direct fluoroscopic visualization a Quincke-tipped spinal needle was advanced to the junction of the superior articulating process with the transverse process at the designated medial branch segment.? Preceded by negative aspiration, the above-mentioned injectate was placed in 1 mL aliquots.? The procedure was repeated at left L5, S1.? The needle was removed and insertion site was covered. The same procedure, at the same levels, was completed on the right side. The patient was taken to the postprocedural recovery area and monitored for an appropriate length of time before found suitable for discharge in the company of a responsible adult. Anesthesia: Local Surgeon: Rafa Abebe Pathology: none sent Condition: stable Disposition: no change
== END 2023-10-22 10:18 | disposition home or self-care (01) ==
PROVIDERS: PCP Family Medicine; Visit Provider Anesthesiology
DX: M47.816 Spondylosis without myelopathy or radiculopathy, lumbar region (principal)
CPT/HCPCS: 64493; 64494

== ENCOUNTER 2023-11-07 10:39 | Outpatient (OUT) | payer MEDICARE, OTHER, SELFPAY ==
--- NOTE | 2023-11-07 10:53 | P.CN_ITS ---
Consult Note: HPI Data of Consult Patient: known to practice within the last 3 years Consult date: 08/20/23 Requesting Physician: Shana Marie NP Primary Care Provider: Kavon Leary MD Consult Narrative Reason for consult: neck, low back pain Narrative: 78yof who presents for assessment. persistence of neck and low back pain for months. imaging reviewed, which shows multilevel facet arthropathy and spondylosis throughout cervical and lumbar spines. continues in provider directed home exercise program >6 weeks and has continues in physical therapy to date, without significant benefit. has had good relief with addition of flexeril and gabapentin. denies adverse med side effects. Recently underwent bilateral L4-5 l5-s1 facet medial branch block #2 with >80% improvement in pain for 2 weeks. cc:: CC: Shana Marie NP Review of Systems ROS Status of ROS 10 or more systems reviewed and unremark able except as noted in history and below Musculoskeletal Reports: back pain PFSH PFSH Medical History Acute diarrhea ?R19.7 - Diarrhea, unspecified (ICD-10) Acute kidney injury ?N17.9 - Acute kidney failure, unspecified (ICD-10) Hiatal hernia ?K44.9 - Diaphragmatic hernia without obstruction or gangrene (ICD-10) COPD (chronic obstructive pulmonary disease) ?J44.9 - Chronic obstructive pulmonary disease, unspecified (ICD-10) Parkinsons ?G20 - Parkinson's disease (ICD-10) Hypertension ?I10 - Essential (primary) hypertension (ICD-10) Surgical History History of appendectomy ?Z90.49 - Acquired absence of other specified parts of digestive tract (ICD- 10) H/O: hysterectomy ?Z90.710 - Acquired absence of both cervix and uterus (ICD-10) H/O splenectomy ?Z90.81 - Acquired absence of spleen (ICD-10) Family History Brother Family history of stroke Family history of hypertension Mother Family history of stroke Family history of hypertension Father Family history of cancer Social History Within the past year, how often did you have a drink containing alcohol: never Within the past year, how many standard drinks containing alcohol did you have on a typical day: 1 or 2 Within the past year, how often did you have six or more drinks on one occasion: never Total score: 0 Score interpretation: A score less than 3 is consistent with normal alcohol consumption. Smoking status: Former smoker Non-prescribed substance use: denies use Previous occupational history: retired Highest level of school completed/degree received: high school graduate Are you now , , , , never or living with a partner: In a typical week, how many times do you talk on the telephone with family, friends, or neighbors: 3 or more times per week How often do you get together with friends or relatives: 3 or more times per week How often do you attend christianity or anabaptist services: 4 or more times per year Do you belong to any clubs or organizations such as christianity groups unions, [employer] or athletic groups, or school groups: no Total score: 2 Score interpretation: A score of greater than or equal to 2 indicates the lowest level of social isolation. Little interest or pleasure in doing things: not at all Feeling down, depressed, or hopeless: not at all Feel stressed/tense/nervous/anxious/difficulty sleeping: not at all Gender Identity: female Meds Home Medications and Allergies Home Medications ?Medication ?Instructions ?Recorded ?Confirmed ?Type alprazolam 1 mg tablet 1.5 mg PO BEDTIME PRN sleep 02/08/23 10/22/23 History amlodipine 5 mg tablet 5 mg PO DAILY 02/08/23 10/22/23 History potassium chloride 20 mEq 20 meq PO BID 02/08/23 10/22/23 History tablet,extended release(part/cryst) (Klor-Con M) pravastatin 20 mg tablet 20 mg PO DAILY 02/08/23 10/22/23 History ascorbic acid (vitamin C) 1,000 mg 1 g PO DAILY 07/30/23 10/22/23 History capsule cholecalciferol (vitamin D3) 125 125 mcg PO DAILY 07/30/23 10/22/23 History mcg (5,000 unit) capsule cyclobenzaprine 10 mg tablet 10 mg PO BID PRN muscle spasm 07/30/23 10/22/23 History gabapentin 300 mg capsule 300 mg PO TID 07/30/23 10/22/23 History ropinirole 0.25 mg tablet 0.5 mg PO TID 07/30/23 10/22/23 History aspirin 81 mg chewable tablet 81 mg PO DAILY 08/10/23 10/22/23 History lutein 25 mg-zeaxanthin 5 mg 1 cap PO DAILY 08/10/23 10/22/23 History capsule multivitamin 1 tab PO DAILY 08/10/23 10/22/23 History rasagiline 1 mg tablet 1 mg PO DAILY 08/10/23 10/22/23 History Allergies Allergy/AdvReac Type Severity Reaction Status Date / Time Sulfa (Sulfonamide Allergy Unknown Verified 09/03/23 10:34 Antibiotics) Exam Narrative Exam Narrative: Psych-alert and oriented x 3. Attentive and appropriate, constitutionally normal, displays normal mood and affect per situation.? There are no obvious deficits in memory, reasoning, or intellect.? Skin-no obvious rashes, bruising, erythema noted to the patient's area of pain. Extremities- extremities are warm with minimal edema and palpable pulses. Lumbar-no significant tenderness to palpation noted in the lumbar spine and paraspinal musculature.? Pain is elicited with extension, and lateral rotation of the lumbar spine. Range of motion is slightly diminished with these motions due to pain. Facet loading maneuvers are positive bilaterally and do appear to be concordant with the patient's normal complaints of pain.? Coordination remains intact.? Gait remains non-antalgic. Constitutional Documenting provider has reviewed patient's vital signs: yes Common normals: no apparent distress, oriented x3, healthy appearing, alert and well nourished General appearance: cooperative [facility] Common normals: normocephalic, hearing grossly normal bilaterally and moist oral mucous membranes Head and scalp: normocephalic Eye Common normals: PERRL Pupil: PERRL Neck & C-Spine Common normals: full ROM General: normal visual inspection Chest Common normals: inspection of chest normal Respiratory Common normals: normal respiratory effort, no retractions and no use of accessory muscles Neuro Common normals: oriented x3, CN's II-XII intact bilaterally, moves all extremities, no focal motor deficits, no sensory deficits noted and deep tendon reflexes 2+ bilaterally Sensorium/orientation: alert Motor exam: strength 5/5 throughout and no movement abnormalities noted Psych Common normals: mental status grossly normal, thought process normal, cooperat fidelia, affect normal, speech normal and activity/motor behavior normal Speech: normal speech Thought process: normal thought process Results Additional Findings Additional findings: If on a controlled substance or opioids, I have checked an [place]AR[place] report on this patient and there are no aberrancies noted in the prescribing history.??If on a controlled substance or opioid a drug screen was completed and reviewed within the last year, and if there has not been a drug screen completed we ordered one today to monitor higher risk, state monitored pain medication use. As part of providing excellent, safe, comprehensive care, the following was completed at our patient's visit: 1. A medication reconciliation and review to ensure accurate knowledge of current/active medications, including asking our patients to inform us about any malr-rmf-pguogmt medications or herbal remedies/nutritional supplements/alternative remedies. 2. A review to specifically ensure our patients have had annual screening for screening for depression, screening for tobacco use, and screening for unhealthy alcohol use. For concerning screenings had a discussion with the patient, provided patient education, and recommended follow-up with primary care provider when appropriate. If patient noted with a risk of falling, they received education on strength, gait, and balance training to prevent future risk of falling. Assessment and Plan Assessment and Plan (1) Lumbar spondylosis: Plan bilateral L4-5 L5-S1 facet medial branch RFA under fluoroscopy, risks vs benefits reviewed. declining valium, does have xanax at home she can utilize if she would like, will have a batch mixing truck driver for day of procedure f/u 1 month after RFA
== END 2023-11-07 10:40 | disposition home or self-care (01) ==
LOC: PM 10:40
PROVIDERS: PCP Family Medicine; Visit Provider Nurse Practitioner
DX: M47.816 Spondylosis without myelopathy or radiculopathy, lumbar region (principal)
CPT/HCPCS: G0463

== ENCOUNTER 2023-11-19 09:56 | Day surgery (SDC) | payer MEDICARE, OTHER, SELFPAY ==
[2023-11-19 10:32] VITALS: BP 150/81; PULSE 90; TEMP 36.3; O2SAT 95
[2023-11-19 11:09] VITALS: BP 144/64; PULSE 86; O2SAT 93
[2023-11-19 11:10] VITALS: BP 160/76; PULSE 92; O2SAT 94
[2023-11-19] MEDS: BUPIVACAINE HCL 0.25% PF 25 MG/10 ML VIAL 4 ML INJ (11:13)
[2023-11-19] MEDS: LIDOCAINE HCL 2% 400 MG/20 ML MDV 15 ML INJ (11:13)
[2023-11-19] MEDS: TRIAMCINOLONE ACETONIDE 40 MG/ML VIAL 80 MG INJ (11:13)
--- NOTE | 2023-11-19 11:27 | P.ON_ITS ---
Date of procedure: 11/19/23 Pre-op diagnosis: Pain due to lumbar spondylosis without myelopathy Post-op diagnosis: same as pre-op Procedure: Procedure: Bilateral L4-5, L5-S1 radiofrequency ablation Medications: Bupivacaine 0.25% 6cc, lidocaine 2% 5cc, kenalog 80mg The patient was seen and examined in the preoperative holding area.? The site was marked.? Written informed consent was obtained and placed on the chart.? The patient was brought to the medical procedure unit and placed in the prone position.? A timeout was completed verifying correct patient, procedure, positioning, and special requirements.? The skin overlying the target points, the designated medial branch, were prepped and draped in the usual sterile fashion.? The target point was achieved with a 20-gauge 15 cm with a 10 mm curved active tip radiofrequency cannula under direct fluoroscopic visualization.? The needle was inserted at level L4 on the right side. Needle tip position was confirmed with lateral fluoroscopic position.? Motor stimulation was carried out at 2 Hz up to 5 volts with the absence of extremity activity.? This was repeated at level L5, S1 on right side.?? Sensory stimulation was carried out.? Concordant pain was realized at the above- mentioned sites.? Then radiofrequency lesioning was carried out times 90 seconds at 80 degrees times 2 lesions at each level.? The radiofrequency probe was removed prior to cannula removal.? The above-mentioned injectate was placed in 1 mL increments.? The needle was removed. The same procedure, with the same steps, was then completed on the left side at the same levels. Insertion sites were covered.? The patient was taken to the postoperative recovery area and monitored for an appropriate length of time before being found suitable for discharge in the company of a responsible adult. Anesthesia: Local Surgeon: Rafa Abebe Pathology: none sent Condition: stable Disposition: no change
== END 2023-11-19 11:34 | disposition home or self-care (01) ==
LOC: SURGOUT 09:56
PROVIDERS: PCP Family Medicine; Visit Provider Anesthesiology
DX: M47.816 Spondylosis without myelopathy or radiculopathy, lumbar region (principal)
CPT/HCPCS: 64635; 64636

== ENCOUNTER 2023-12-19 09:53 | Outpatient (OUT) | payer MEDICARE, OTHER, SELFPAY ==
--- NOTE | 2023-12-19 10:09 | PM.CN ---
Consult Note: HPI Data of Consult Patient: known to practice within the last 3 years Consult date: 08/20/23 Requesting Physician: Shana Marie NP Primary Care Provider: Kavon Leary MD Consult Narrative Reason for consult: neck, low back pain Narrative: 78yof who presents for assessment. persistence of neck and low back pain for months. imaging reviewed, which shows multilevel facet arthropathy and spondylosis throughout cervical and lumbar spines. continues in provider directed home exercise program >6 weeks and has continues in physical therapy to date, without significant benefit. has had good relief with addition of flexeril and gabapentin. denies adverse med side effects. Recently underwent bilateral L4-5 l5-s1 facet medial branch thermal RFA with 100% improvement ongoing. BOUBACAR 8% pain 0/10 at all times cc:: CC: Shana Marie NP Review of Systems ROS Status of ROS 10 or more systems reviewed and unremarkable except as noted in history and below [facility] Medical History Acute diarrhea ?R19.7 - Diarrhea, unspecified (ICD-10) Acute kidney injury ?N17.9 - Acute kidney failure, unspecified (ICD-10) Hiatal hernia ?K44.9 - Diaphragmatic hernia without obstruction or gangrene (ICD-10) COPD (chronic obstructive pulmonary disease) ?J44.9 - Chronic obstructive pulmonary disease, unspecified (ICD-10) Parkinsons ?G20 - Parkinson's disease (ICD-10) Hypertension ?I10 - Essential (primary) hypertension (ICD-10) Surgical History History of appendectomy ?Z90.49 - Acquired absence of other specified parts of digestive tract (ICD-10) H/O: hysterectomy ?Z90.710 - Acquired absence of both cervix and uterus (ICD-10) H/O splenectomy ?Z90.81 - Acquired absence of spleen (ICD-10) Family History Brother Family history of stroke Family history of hypertension Mother Family history of stroke Family history of hypertension Father Family history of cancer Social History Within the past year, how often did you have a drink containing alcohol: never Within the past year, how many standard drinks containing alcohol did you have on a typical day: 1 or 2 Within the past year, how often did you have six or more drinks on one occasion: never Total score: 0 Score interpretation: A score less than 3 is consistent with normal alcohol consumption. Smoking status: Former smoker Non-prescribed substance use: denies use Previous occupational history: retired Highest level of school completed/degree received: high school graduate Are you now , , , , never or living with a partner: In a typical week, how many times do you talk on the telephone with family, friends, or neighbors: 3 or more times per week How often do you get together with friends or relatives: 3 or more times per week How often do you attend uatsdin or temple services: 4 or more times per year Do you belong to any clubs or organizations such as uatsdin groups unions, [employer] or athletic groups, or school groups: no Total score: 2 Score interpretation: A score of greater than or equal to 2 indicates the lowest level of social isolation. Little interest or pleasure in doing things: not at all Feeling down, depressed, or hopeless: not at all Feel stressed/tense/nervous/anxious/difficulty sleeping: not at all Gender Identity: female Meds Home Medications and Allergies Home Medications ?Medication ?Instructions ?Recorded ?Confirmed ?Type alprazolam 1 mg tablet 1.5 mg PO BEDTIME PRN sleep 02/08/23 11/19/23 History amlodipine 5 mg tablet 5 mg PO DAILY 02/08/23 11/19/23 History potassium chloride 20 mEq 20 meq PO BID 02/08/23 11/19/23 History tablet,extended release(part/cryst) (Klor-Con M) pravastatin 20 mg tablet 20 mg PO DAILY 02/08/23 11/19/23 History ascorbic acid (vitamin C) 1,000 mg 1 g PO DAILY 07/30/23 11/19/23 History capsule cholecalciferol (vitamin D3) 125 125 mcg PO DAILY 07/30/23 11/19/23 History mcg (5,000 unit) capsule cyclobenzaprine 10 mg tablet 10 mg PO BID PRN muscle spasm 07/30/23 11/19/23 History gabapentin 300 mg capsule 300 mg PO TID 07/30/23 11/19/23 History ropinirole 0.25 mg tablet 0.5 mg PO TID 07/30/23 11/19/23 History aspirin 81 mg chewable tablet 81 mg PO DAILY 08/10/23 11/19/23 History lutein 25 mg-zeaxanthin 5 mg 1 cap PO DAILY 08/10/23 11/19/23 History capsule rasagiline 1 mg tablet 1 mg PO DAILY 08/10/23 11/19/23 History Allergies Allergy/AdvReac Type Severity Reaction Status Date / Time Sulfa (Sulfonamide Allergy Unknown Verified 09/03/23 10:34 Antibiotics) Exam Constitutional Documenting provider has reviewed patient's vital signs: yes Common normals: no apparent distress, oriented x3, healthy appearing, alert and well nourished General appearance: cooperative HENMT Common normals: normocephalic, hearing grossly normal bilaterally and moist oral mucous membranes Head and scalp: normocephalic Eye Common normals: PERRL Pupil: PERRL Neck & C-Spine Common normals: full ROM General: normal visual inspection Chest Common normals: inspection of chest normal Respiratory Common normals: normal respiratory effort, no retractions and no use of accessory muscles Back & Pelvis Lumbar spine/lower back: normal to inspection, lumbar ROM normal and straight leg raise negative bilaterally Sacroiliac joints: SI joints normal Other: negative facet loading negative radiculopathy Extremity Common normals: normal to inspection and full ROM Neuro Common normals: oriented x3, CN's II-XII intact bilaterally, moves all extremities, no focal motor deficits, no sensory deficits noted, deep tendon reflexes 2+ bilaterally and gait normal Sensorium/orientation: alert Motor exam: strength 5/5 throughout and no movement abnormalities noted Psych Common normals: mental status grossly normal, thought process normal, cooperative, affect normal, speech normal and activity/motor behavior normal Speech: normal speech Thought process: normal thought process Results Additional Findings Additional findings: If on a controlled substance or opioids, I have checked an [place] report on this patient and there are no aberrancies noted in the prescribing history.??If on a controlled substance or opioid a drug screen was completed and reviewed within the last year, and if there has not been a drug screen completed we ordered one today to monitor higher risk, state monitored pain medication use. As part of providing excellent, safe, comprehensive care, the following was completed at our patient's visit: 1. A medication reconciliation and review to ensure accurate knowledge of current/active medications, including asking our patients to inform us about any [id number] medications or herbal remedies/nutritional supplements/alternative remedies. 2. A review to specifically ensure our patients have had annual screening for screening for depression, screening for tobacco use, and screening for unhealthy alcohol use. For concerning screenings had a discussion with the patient, provided patient education, and recommended follow-up with primary care provider when appropriate. If patient noted with a risk of falling, they received education on strength, gait, and balance training to prevent future risk of falling. Assessment and Plan Assessment and Plan (1) Lumbar spondylosis: Plan decrease gabapentin 300mg BID continue flexeril 10mg BID PRN myofascial pain f/u 6 months, sooner if needed
== END 2023-12-19 09:54 | disposition home or self-care (01) ==
LOC: PM 09:53
PROVIDERS: PCP Family Medicine; Visit Provider Nurse Practitioner
DX: M47.816 Spondylosis without myelopathy or radiculopathy, lumbar region (principal)
CPT/HCPCS: G0463

== ENCOUNTER 2024-04-09 08:02 | Emergency (ER) | payer MEDICARE, OTHER, SELFPAY ==
[2024-04-09 08:07] VITALS: BP 166/89; PULSE 91; TEMP 36.6; O2SAT 95; BMI 18.2
--- NOTE | 2024-04-09 08:24 | ED_ITS ---
HPI HPI - General Adult General Chief complaint: Fall Stated complaint: FALL/GENERAL WEAKNESS Time Seen by Provider: 04/09/24 08:24 Source: patient and family Mode of arrival: Wheelchair Limitations: physical limitation History of Present Illness HPI narrative: This patient is here with her daughter after having a fall today. Approximately 3 AM she got up to use the restroom and fell the ground. She did not have any loss of consciousness. She just felt weak. She says she has had increasing weakness over the last week or 2. The family brought her over a walker. Normally she does not use that. She did not injure her head or neck today. She has not had any recent influenza type symptoms. She has not had cough sore throat runny nose nausea vomiting diarrhea. She does admit to decreased appetite. She goes to the [facility] and has been diagnosed as having Parkinson's disease. She was just given amantadine several weeks ago and she is on other Parkinson's meds as well. Initially she had some improvement but she is not seeing that anymore. She has not had any chest pain shortness of breath. She denies any pain or discomfort. Just yunior matamorosess decreased appetite. She has hypertension. her meds have not been changed recently. She has not had any cardiac disease or pulmonary disease that she knows of. Related Data Home Medications ?Medication ?Instructions ?Recorded ?Confirmed alprazolam 1 mg tablet 1.5 mg PO BEDTIME PRN sleep 02/08/23 04/09/24 amlodipine 5 mg tablet 5 mg PO DAILY 02/08/23 04/09/24 potassium chloride 20 mEq 20 meq PO BID 02/08/23 04/09/24 tablet,extended release(part/cryst) (Klor-Con M) pravastatin 20 mg tablet 20 mg PO DAILY 02/08/23 04/09/24 ascorbic acid (vitamin C) 1,000 mg 1 g PO DAILY 07/30/23 04/09/24 capsule cholecalciferol (vitamin D3) 125 125 mcg PO DAILY 07/30/23 04/09/24 mcg (5,000 unit) capsule cyclobenzaprine 10 mg tablet 10 mg PO BID PRN muscle spasm 07/30/23 04/09/24 gabapentin 300 mg capsule 300 mg PO TID 07/30/23 04/09/24 ropinirole 0.25 mg tablet 0.5 mg PO TID 07/30/23 04/09/24 aspirin 81 mg chewable tablet 81 mg PO DAILY 08/10/23 04/09/24 lutein 25 mg-zeaxanthin 5 mg 1 cap PO DAILY 08/10/23 04/09/24 capsule rasagiline 1 mg tablet 1 mg PO DAILY 08/10/23 04/09/24 amantadine HCl 100 mg tablet 100 mg PO BID 04/09/24 04/09/24 carbidopa ER 25 mg-levodopa 100 mg 1 tab PO .7am, 12pm, 5pm 04/09/24 04/09/24 tablet,extended release lisinopril 20 1 tab PO DAILY 04/09/24 04/09/24 mg-hydrochlorothiazide 25 mg tablet pantoprazole 40 mg tablet,delayed 40 mg PO DAILY 04/09/24 04/09/24 release zinc gluconate 50 mg tablet 50 mg PO DAILY 04/09/24 04/09/24 Allergies Allergy/AdvReac Type Severity Reaction Status Date / Time Sulfa (Sulfonamide Allergy Severe Anaphylaxis Verified 04/09/24 08:10 Antibiotics) Opioid HPI Opioid Management Most Recent Opioid Data: Last Pain Scale 3 09/03/23 10:28 09/03/23 Last Pain Intensity 0 08/11/23 10:28 08/11/23 [facility] Medical History Acute diarrhea ?R19.7 - Diarrhea, unspecified (ICD-10) Acute kidney injury ?N17.9 - Acute kidney failure, unspecified (ICD-10) Hiatal hernia ?K44.9 - Diaphragmatic hernia without obstruction or gangrene (ICD-10) COPD (chronic obstructive pulmonary disease) ?J44.9 - Chronic obstructive pulmonary disease, unspecified (ICD-10) Parkinsons ?G20 - Parkinson's disease (ICD-10) Hypertension ?I10 - Essential (primary) hypertension (ICD-10) Surgical History History of appendectomy ?Z90.49 - Acquired absence of other specified parts of digestive tract (ICD- 10) H/O: hysterectomy ?Z90.710 - Acquired absence of both cervix and uterus (ICD-10) H/O splenectomy ?Z90.81 - Acquired absence of spleen (ICD-10) Family History Brother Family history of stroke Family history of hypertension Mother Family history of stroke Family history of hypertension Father Family history of cancer Social History Within the past year, how often did you have a drink containing alcohol: never Within the past year, how many standard drinks containing alcohol did you have on a typical day: 1 or 2 Within the past year, how often did you have six or more drinks on one occasion: never Total score: 0 Score interpretation: A score less than 3 is consistent with normal alcohol consumption. Smoking status: Former smoker Non-prescribed substance use: denies use Previous occupational history: retired Highest level of school completed/degree received: high school graduate Are you now , , , , never or living with a partner: In a typical week, how many times do you talk on the telephone with family, friends, or neighbors: 3 or more times per week How often do you get together with friends or relatives: 3 or more times per week How often do you attend alevism or alevism services: 4 or more times per year Do you belong to any clubs or organizations such as alevism groups unions, fraternal or athletic groups, or school groups: no Total score: 2 Score interpretation: A score of greater than or equal to 2 indicates the lowest level of social isolation. Little interest or pleasure in doing things: not at all Feeling down, depressed, or hopeless: not at all Feel stressed/tense/nervous/anxious/difficulty sleeping: not at all Gender Identity: female Exam Narrative Exam Narrative: Patient is awake alert she is here with family member. She is oriented x 3 normal cognition good memory denies any pain or discomfort at this time. Her vitals are noted. She is afebrile. There is no respiratory distress. HEENT examination shows no carotid bruits no jugular vein distention airway is midline. Lungs are completely clear with no wheeze rales or rhonchi there is no cough or congestion. Heart sounds are normal with no clicks rubs gallops or murmur. She has no abdominal tenderness. Her extremities show no evidence of DVT or phlebitis. Neurological examination she does have intention tremor. She has some weakness of both lower extremities but no focal weakness. She does have some cogwheeling of her lower and upper extremities. Cranial nerves grossly intact. 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 Constitutional Vital Signs, click to edit/add: Last Vital Signs Temp 97.9 F 04/09/24 08:07 Pulse 91 H 04/09/24 08:07 Resp 18 04/09/24 08:07 BP 166/89 H 04/09/24 08:07 Pulse Ox 95 04/09/24 08:07 O2 Del Method Room Air 04/09/24 08:07 Course Vital Signs Vital signs: Vital Signs Temperature 97.9 F 04/09/24 08:07 Pulse Rate 91 H 04/09/24 08:07 Respiratory Rate 18 04/09/24 08:07 Blood Pressure 166/89 H 04/09/24 08:07 Pulse Oximetry 95 04/09/24 08:07 Oxygen Delivery Method Room Air 04/09/24 08:07 Temperature 97.9 F 04/09/24 08:07 Pulse Rate 91 H 04/09/24 08:07 Respiratory Rate 18 04/09/24 08:07 Blood Pressure 166/89 H 04/09/24 08:07 Pulse Oximetry 95 04/09/24 08:07 Oxygen Delivery Method Room Air 04/09/24 08:07 Medical Decision Making MDM Narrative Medical decision making narrative: Patient presents with increasing fatigability and decreased oral intake recently. This is confirmed by mild elevation of her kidney function test. She also was noted to have a urinary tract infection today. She will be started on antibiotics and given crystalloid fluids. We contacted her primary care doctor's office and he will return on Sunday. The daughter was advised to make an appointment at this time. Should she have any further problems over the weekend they can return for repeat evaluation. They are to make sure that she takes plenty of extra fluids. Lab Data Labs: Lab Results 04/09/24 04/09/24 Range/Units 08:28 09:25 WBC 11.0 (4.0-11.0) 10^3/uL RBC 4.55 (4.20-5.40) 10^6/uL Hgb 14.3 (12.0-16.0) g/dL Hct 42.7 (36.0-48.0) % MCV 93.8 (81.0-99.0) fL MCH 31.4 (26.7-34.0) pg MCHC 33.5 (29.9-35.2) g/dL RDW 14.5 (11.0-15.0) % Plt Count 304 (150-450) 10^3/uL MPV 11.4 (9.5-13.5) fL Neut % (Auto) 64.0 (43.0-75.0) % Lymph % (Auto) 20.7 (20.5-60.0) % [place] % (Auto) 9.6 (1.7-12.0) % Eos % (Auto) 4.7 (0.9-7.0) % Baso % (Auto) 0.8 (0.2-2.0) % Neut # (Auto) 7.0 H (1.4-6.5) 10^3/uL Lymph # (Auto) 2.3 (1.2-3.8) 10^3/uL [place] # (Auto) 1.1 H (0.3-0.8) 10^3/uL Eos # (Auto) 0.5 (0.0-0.7) 10^3/uL Baso # (Auto) 0.1 (0.0-0.1) 10^3/uL Abs Immat Gran (auto) 0.02 (0.00-0.03) 10^3/uL Imm/Tot Granulo (auto) 0.2 (0.0-0.5) % Sodium 144 (136-145) mmol/L Potassium 3.7 (3.5-5.1) mmol/L Chloride 106 (98-107) mmol/L Carbon Dioxide 26.1 (21.0-32.0) mmol/L Anion Gap 15.6 BUN 23.0 H (7.0-18.0) mg/dL Creatinine 1.37 H (0.55-1.02) mg/dL Est GFR ( Amer) 45 L (>=60 mL/min/1.73m^2) Est GFR (Non-Af Amer) 37 L (>=60 mL/min/1.73m^2) BUN/Creatinine Ratio 16.8 Glucose 118 H (74-106) mg/dL Lactate 1.4 (0.4-2.0) mmol/L Calcium 11.1 H (8.5-10.1) mg/dL Total Bilirubin 0.7 (0.2-1.0) mg/dL AST 16 (15-37) U/L ALT 18 (14-59) U/L Alkaline Phosphatase 100 (46-116) U/L Troponin I High Sens 24.0 (4.0-51.3) pg/mL Total Protein 6.9 (6.4-8.2) g/dL Albumin 3.9 (3.4-5.0) g/dL Globulin 3.0 g/dL Albumin/Globulin Ratio 1.3 Urine Color Lt. yellow (YELLOW) Urine Clarity Clear (CLEAR) Urine pH 6.5 (5.0-9.0) Ur Specific [place] 1.010 (1.005-1.025) Urine Protein Negative (NEG/TRACE) mg/dL Urine Glucose (UA) Negative (NEGATIVE) mg/dL Urine Ketones Negative (NEGATIVE) mg/dL Urine Occult Blood Negative (NEGATIVE) Urine Nitrite Negative (NEGATIVE) Urine Bilirubin Negative (NEGATIVE) Urine Urobilinogen 0.2 (0.2-1.0) EU/dL Ur Leukocyte Esterase Large A (NEGATIVE) Urine RBC 0-2 (0-2) #/HPF Urine WBC 10-20 A (NONE SEEN) #/HPF Ur Squamous Epith Cells Rare (NONE/RARE) #/LPF Urine Crystals None seen (None Seen) #/HPF Urine Bacteria Trace A (NONE SEEN) #/HPF Urine Casts None seen (NONE SEEN) #/LPF Urine Mucus None seen (NONE SEEN) Ur Culture Indicated? Yes Discharge Plan Discharge Chief Complaint: Fall Clinical Impression: Acute UTI Patient Disposition: Home, Self-Care Time of Disposition Decision: 10:23 Prescriptions / Home Meds: No Action alprazolam 1 mg tablet 1.5 mg PO BEDTIME PRN (Reason: sleep) amlodipine 5 mg tablet 5 mg PO DAILY potassium chloride [Klor-Con M20] 20 mEq tablet,ER particles/crystals 20 meq PO BID pravastatin 20 mg tablet 20 mg PO DAILY ropinirole 0.25 mg tablet 0.5 mg PO TID ascorbic acid (vitamin C) 1,000 mg capsule 1 g PO DAILY cholecalciferol (vitamin D3) 125 mcg (5,000 unit) capsule 125 mcg PO DAILY cyclobenzaprine 10 mg tablet 10 mg PO BID PRN (Reason: muscle spasm) gabapentin 300 mg capsule 300 mg PO TID aspirin 81 mg tablet,chewable 81 mg PO DAILY lutein-zeaxanthin 25-5 mg capsule 1 cap PO DAILY rasagiline 1 mg tablet 1 mg PO DAILY amantadine HCl 100 mg tablet 100 mg PO BID carbidopa-levodopa 25-100 mg tablet extended release 1 tab PO .7am, 12pm, 5pm zinc gluconate 50 mg tablet 50 mg PO DAILY pantoprazole 40 mg tablet,delayed release (DR/EC) 40 mg PO DAILY lisinopril-hydrochlorothiazide 20-25 mg tablet 1 tab PO DAILY Print Language: [place] Additional Instructions: Cipro/be sure to take additional fluids such as water. See your primary care doctor Sunday Referrals: Kavon Leary MD [Primary Care Provider] - 1 week
--- NOTE | 2024-04-09 08:36 | ECG_ITS ---
The [facility] Test Date: 2024-04-09 Pat Name: NANCY KHAN Department: Room: - Gender: Female Histologist: : 1945 Requested By: RODRICK SAMS Order Number: [id number] Reading MD: MARGY FRANCO Measurements Intervals [place] Rate: 83 P: 90 SD: 166 QRS: -20 QRSD: 90 T: 75 QT: 356 QTc: 396 Interpretive Statements 1100 Sinus rhythm 1470 with occasional supraventricular premature complexes 3433 Septal myocardial infarction, probably old 9150 abnormal ECG Compared to ECG 08/10/2023 04:39:48 Myocardial infarct finding now present Electronically Signed On 04-09-2024 23:24:27 EDT by MARGY FRANCO
--- NOTE | 2024-04-09 08:36 | XR_ITS ---
The [address] [address] Patient Name: NANCY KHAN MRN: [id number] date: 1945 Sex: F Assigned Patient Location: ER Current Patient Location: ER Accession/Order Number: [id number] Exam Date: 04/09/2024 08:36 Report Date: 04/09/2024 09:02 At the request of: VIET MARSH Procedure: XR chest 1V EXAMINATION: XR chest 1V HISTORY: Weakness COMPARISON: XR chest 02/08/2023 FINDINGS: LUNGS: Hyperexpanded lungs. No significant pulmonary parenchymal abnormalities. VASCULATURE: No increased pulmonary vasculature. PLEURA: No pneumothorax, effusion, or pleural thickening. CARDIAC: No cardiomegaly or cardiac silhouette abnormality. MEDIASTINUM: No visible mass or adenopathy. BONES: No fracture or visible bone lesion. OTHER: Negative. XR/XR chest 1V IMPRESSION: 1. Hyperexpanded lungs suggestive of COPD. 2. No acute cardiopulmonary process. Electronically authenticated by: RAMIRO SPENCER Date: 04/09/2024 09:02
--- OUTSIDE RECORDS SUMMARY | 2024-04-09 08:43 | XMS_ITS | CCD ---
Author Organization [facility] Care Team Providers Care Low Pressure Boiler Operator Name Role Phone SELF, REFERRED Unavailable Unavailable SELF, REFERRED Unavailable Unavailable BRAMOS, ATHANASIOS Unavailable Unavailable SUPA MAY Unavailable Unavailable [facility] Unavailable Unavailable BRAMOS, ATHANASIOS Unavailable Unavailable VA Unavailable Unavailable SUPA MAY Unavailable Unavailable PHYSICIAN, DEFAULT Unavailable Unavailable PHYSICIAN, DEFAULT Unavailable Unavailable SELF, REFERRED Unavailable Unavailable PHYSICIAN, DEFAULT Unavailable Unavailable PHYSICIAN, DEFAULT Unavailable Unavailable PAY ., DR DOUGLAS Admitting Unavailable ZIEBFETSUS, DR RAMIRO Gates Consulting Unavailable HOY ., DR MENSAH Primary Care Unavailable PAY ., DR DOUGLAS Attending Unavailable PAY ., DR DOUGLAS Consulting Unavailable HOY ., DR MENSAH Admitting Unavailable HOY ., DR MENSAH Attending Unavailable HOY ., DR MENSAH Consulting Unavailable HOGaurang ., DR MENSAH Primary Care Unavailable ZIEBFESTUS, DR RAMIRO Gates Consulting Unavailable ALBA TROTTER Consulting Unavailable LANDY SHERMAN Consulting Unavailable YULISSA TALBERT Consulting Unavailable SUPA LOZANO Unavailable SHAIKH Zoltan TOM Consulting Unavailable SUPA DEAN Consulting Unavailable FLAQUITA ., DR MENSAH Primary Care Unavailable JOHANNA, DR RAMIRO Gates Consulting Unavailable BALJEET RAO [...] JOHANNA, DR RAMIRO Gates Consulting Unavailable MD Kavon Sams Primary Care Provider DIXIE Gill Attending Provider [phone] Kavon Sams Primary Care Physician Elian Quigley Unavailable Unavailable Mela Espinal Admitting Unavailable Haile CASTRO Attending Unavailable Hamilton, Ramiro Consulting Unavailable Hamilton, Ramiro Consulting Unavailable Hamilton, Ramiro Consulting Unavailable Hamilton, Ramiro Consulting Unavailable Hamilton, Ramiro Consulting Unavailable Hamilton, Ramiro Consulting Unavailable Hamilton, Ramiro Consulting Unavailable Hamilton, Ramiro Consulting Unavailable Hamilton, Ramiro Consulting Unavailable Demarco Beaver Attending Unavailable Giovanni Gill Attending Unavailable Kavon Sams Primary Care Unavailable Giovanni Gill Admitting Unavailable Giovanni Gill Attending Unavailable Kavon Sams Primary Care Unavailable Giovanni Gill Admitting Unavailable Kavon Sams MD Unavailable Kavon Sams Md Primary Care Provider [phone] Kavon Sams Md Primary Care Provider [phone] GIOVANNI GILL Attending Unavailable Giedraitis , Andrius Pham Attending Unavailable Giedraitis , Andrius Valla Attending Unavailable Giedraitis , Andrius Vytautchuck Attending Unavailable Giedraitis , Andrius Vytautchuck Attending Unavailable Giedraitis , Andrius Vyterlinda Attending Unavailable SHEEHAN, JIANLIN Admitting Unavailable SHEEHAN, JIANLIN Attending Unavailable SHEEHAN, JIANLIN Admitting Unavailable AMRIK, MILA Referring Unavailable SHEEHAN, JIASAMMYIN Attending Unavailable AMRIK, MILA Attending Unavailable STEPHENIE PRECIADO Attending Unavailable JOSH THIBODEAUX Referring Unavailable SHEEHAN, JIANLIN Attending Unavailable AMRIK, MILA Referring Unavailable SHEEHAN, JIANLIN Attending Unavailable SHEEHAN, JIANLIN Referring Unavailable SHEEHAN, JIANLIN Attending Unavailable SHEEHAN, JIANLIN Attending Unavailable AMRIK, MILA Attending Unavailable SIMON, MARIOLA Attending Unavailable SIDRADAVID Referring Unavailable SIDRA, DAVID Referring Unavailable SIDRA, DAVID Referring Unavailable SIDRA, DAVID Referring Unavailable SIDRA, DAVID Attending Unavailable SIMON, MARIOLA Attending Unavailable SIMON, MARIOLA Referring Unavailable Allergies Allergy Classification Reported Allergen(s) Allergy Type Date of Onset Reaction(s) Facility Sulfonamides (antibiotic) (1 source) Sulfonamides (Antibiotic); 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: [sulfa drugs] Drug Allergy Unknown (qualifier value) [facility] (5 sources) Sulfonamides (Antibiotic); 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: [SULFA (SULFONAMIDE ANTIBIOTICS)] Drug allergy (disorder) 4 [facility] (1 source) Cephalexin Drug Allergy 2 [facility] (2 sources) Sulfonamides (Antibiotic); 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: [sulfa drugs] Drug allergy Unknown (qualifier value) [facility] (1 source) Unable to Assess Drug allergy (disorder) 3 [facility] (13 sources) Naproxen; 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: [NAPROXEN SODIUM] Drug Allergy 4 Unknown [facility] (12 sources) Sulfonamides (Antibiotic) Drug Allergy 4 Anaphylaxis [facility] (1 source) traZODone; 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: [TRAZODONE] Drug Allergy 4 [facility] Medications Current Medications Medication Drug Class(es) Dates Sig (Normalized) Sig (Original) ALPRAZolam 1 mg oral tablet (14 sources) Benzodiazepine Start: 02-10-2020 alprazolam 1 mg Tab 1 mg = 1 tab(s), Oral, PRN for anxiety Start Date: 02/10/20 Status: Ordered Comment on above: Take 1 mg by mouth a t bedtime as needed. amantadine hydrochloride 100 mg oral tablet (11 sources) Influenza A M2 Protein Inhibitor Start: 11-08-2023 End: 11-07-2024 take 1 tablet by mouth twice daily amantadine HCl (SYMMETREL) 100 mg tablet Indications: Parkinson's disease with dyskinesia and fluctuating manifestations (HCC) Take 1 tablet by mouth two times a day. Take with first and second dose of sinemet. 180 tablet 3 11/08/2023 11/07/2024 Active Start: 10-17-2023 End: 01-15-2024 take 1 tablet by mouth once daily amantadine HCl (SYMMETREL) 100 mg tablet Indications: Parkinson's disease with dyskinesia and fluctuating manifestations (HCC) Take 1 tablet by mouth once daily. 30 tablet 2 10/22/2023 11/08/2023 Discontinued Start: 10-17-2023 End: 10-18-2023 take 1 tablet by mouth twice daily amantadine HCl (SYMMETREL) 100 mg tablet Indications: Parkinson's disease with dyskinesia and fluctuating manifestations (HCC) Take 1 tablet by mouth two times a day. 30 tablet 2 10/17/2023 10/18/2023 Discontinued (Dosage adjustment) amLODIPine 10 mg oral tablet (14 sources) Dihydropyridine Calcium Channel Mesfin Start: 02-10-2020 take 1 tablet by mouth once daily amLODIPine 10 mg Tab 10 mg = 1 tab(s), Oral, Daily Start Date: 02/10/20 Status: Ordered Comment on above: Take 10 mg by mouth once daily. aspirin 81 mg oral tablet (14 sources) Platelet Aggregation Inhibitor, Nonsteroidal Anti-inflammatory Drug Start: 02-10-2020 take 1 tablet by mouth once daily aspirin 81 mg oral tablet 81 mg = 1 tab(s), Oral, Daily Start Date: 02/10/20 Status: Ordered Start: 06-18-2014 take 1 tablet by clyde th once daily aspirin, enteric coated (ASPIR-LOW) 81 mg EC tablet Take 1 tablet by mouth once daily. 0 06/18/2014 Active Comment on above: Take 1 tablet by clyde th once daily. carbidopa 25 mg / levodopa 100 mg extended release oral tablet (15 sources) Aromatic Amino Acid Decarboxylation Inhibitor, Aromatic Amino Acid Start: 01-14-20 End: 03-04-20 24 take 1 tablet by mouth three times daily carbidopa-levodopa CR (SINEMET CR) 25-100 mg per tablet Indications: Parkinson's disease with dyskinesia and fluctuating manifestations (HCC) TAKE 1 TABLET BY MOUTH THREE TIMES A DAY AT 7AM, 12PM, AND 5PM 270 tablet 3 02/25/2024 Active Start: 01-02-2024 End: 01-14-2024 take 1 tablet by mouth three times daily carbidopa-levodopa (SINEMET 25-100) 25-100 mg per tablet Take 1 tablet by mouth three times a day. 270 tablet 3 01/02/2024 01/14/2024 Discontinued Start: 09-13-2023 End: 10-20-2023 take 0.5 tablet by mouth three times daily, then take 1 tablet by mouth three times daily carbidopa-levodopa (SINEMET) 25-100 mg per tablet Take 0.5 tablets by mouth three times a day for 7 days, THEN 1 tablet three times a day. Take at 7am, noon, and 5pm.. 101 tablet 2 09/13/2023 Active End: 09-13-2023 take 1 tablet by mouth once daily carbidopa-levodopa CR (SINEMET CR) 25-100 mg per tablet Take 1 tablet by mouth once daily. 0 09/13/2023 Discontinued (Course of therapy completed) Comment on above: Take 0.5 tablets by mouth three times a day for 7 days, THEN 1 tablet three times a day. Take at 7am, noon, and 5pm.. Take 1 tablet by clyde th once daily. cephalexin 500 mg oral capsule (1 source) Cephalosporin Antibacterial Start: 2023 End: 2023 take 1 capsule by mouth three times daily Keflex 500 mg Cap 500 mg = 1 cap(s), Oral, TID, X 5 day(s), # 15 cap(s), Refills(s) 0, Pharmacy: [facility]/pharmacy #[id number], 167, cm, 06/23/23 1:52:00 EST, Height/Length Dosing, 56.3, kg, 06/23/23 1:52:00 EST, Weight Dosing Start Date: 06/23/23 Stop Date: 06/28/23 Status: Ordered cholecalciferol 0.05 mg oral tablet (12 sources) Vitamin D take 1 tablet by mouth once daily Cholecalciferol, Vitamin D3, (D3 DOTS) 2,000 unit tab Take 2,000 Units by mouth once daily. Active Comment on above: Take 2,000 Units by mouth once daily. ciprofloxacin 500 mg oral tablet (2 sources) Quinolone Antimicrobial Start: 2019 Cipro 500 mg Tab See Instructions, Take 1 tab day prior to procedure and 1 tab day of procdure - afterwards, # 2 tab(s), Refills(s) 0, Pharmacy: [facility]/pharmacy #[id number], 167, cm, 02/10/20 14:06:00 EDT, Height/Length Dosing, 52, kg, 02/10/20 14:06:00 EDT, Weight Dosing Start Date: 02/25/20 Status: Ordered cyclobenzaprine hydrochloride 10 mg oral tablet (12 sources) Muscle Relaxant Start: 2023 cyclobenzaprine (FLEXERIL) 10 mg tablet Take 10 mg by mouth. 07/30/2023 Active Comment on above: Take 10 mg by mouth. Daily Multiple for Women 50+ oral tablet (2 sources) Start: 2019 take 1 tablet by mouth once daily Daily Multiple for Women 50+ oral tablet 1 tab(s), Oral, Daily Start Date: 02/10/20 Status: Ordered gabapentin 300 mg oral capsule (12 sources) Anti-epileptic Agent Start: 2023 take 1 capsule by mouth once daily, then take 1 capsule by mouth twice daily, then take 1 capsule by mouth three times daily gabapentin (NEURONTIN) 300 mg capsule TAKE 1 CAPSULE BY MOUTH ONCE DAILY X3DAYS, 1 CAPSULE TWICE DAILY X3DAYS THEN 1 CAPSULE 3 TIMES DAILY 07/30/2023 Active Comment on above: TAKE 1 CAPSULE BY [facility] ONCE DAILY X3DAYS, 1 CAPSULE TWICE DAILY X3DAYS THEN 1 CAPSULE 3 TIMES DAILY hydroCHLOROthiazide 25 mg / lisinopril 20 mg oral tablet (14 sources) Thiazide Diuretic, Angiotensin Converting Enzyme Inhibitor Start: 2019 take 2 tablets by mouth once daily hydrochlorothiazide-l isinopril 25 mg-20 mg Tab 2 tab(s), Oral, Daily Start Date: 02/10/20 Status: Ordered Comment on above: Take 1 tablet by [facility] once daily. Misc Medication (2 sources) Start: 2019 Misc Medication calcium +D3 Start Date: 02/10/20 Status: Ordered Multivitamin preparation (12 sources) MULTIVITAMIN ( TAMIN DAILY ORAL) Take by mouth once daily. Active MULTIVITAMIN ( TAMIN DAILY ORAL) Take by mouth once daily. 0 Active Comment on above: Take by mouth once d aily. microencapsulated potassium chloride 20 meq extended release oral tablet (20 sources) Start: 06-30-2023 take 1 tablet by mouth every twelve hours KLOR-CON M20 20 mEq tablet Take 1 tablet by mouth every 12 hours. 06/30/2023 Active Start: 02-10-2020 take 2 tablets by mo ut once daily potassium chloride 20 mEq ER Tab 40 mEq = 2 tab(s), Oral, Daily Start Date: 02/10/20 Status: Ordered potassium chlori de (KLOR-CON 10) 10 mEq tablet Take 20 mEq by mouth once daily. Active Comment on above: Take 20 mEq by mouth once daily. Take 1 tablet by clyde th every 12 hours. pravastatin sodium 20 mg oral tablet (14 sources) HMG-CoA Reductase Inhibitor Start: 02-10-2020 take 1 tablet by mouth once daily Pravachol 20 mg Tab 20 mg = 1 tab(s), Oral, Daily Start Date: 02/10/20 Status: Ordered Comment on above: Take 20 mg by mouth once daily. rasagiline 1 mg oral tablet (12 sources) Monoamine Oxidase Inhibitor Start: 07-20-2023 rasagiline (AZILECT) 1 mg tab Take by mouth. 07/20/2023 Active Comment on above: Take by mouth. rOPINIRole 0.25 mg oral tablet (12 sources) Nonergot Dopamine Agonist Start: 09-13-2023 rOPINIRole (REQUIP) 0.25 mg tablet Reduce to 2 tablets, twice/day. After a week, reduce it to 1 tablet in morning and 2 tabs at night. After a week, reduce to only 2 tabs at night. After a week, reduce it to 1 tab at night. Continue on that dose thereafter. 70 tablet 2 09/13/2023 Active Comment on above: Reduce to 2 tablets, twice/day. After a week, reduce it to 1 tablet in morning and 2 tabs at night. After a week, reduce to only 2 tabs at night. After a week, reduce it to 1 tab at night. Continue on that dose thereafter. Completed/Discontinued Medications Medication Drug Class(es) Dates Sig (Normalized) Sig (Original) Calcium Carbonate (7 sources) End: 10-17-2023 CALCIUM CARBONATE (CALCIUM 600 ORAL) Take by mouth twice daily. 0 10/17/2023 Discontinued CALCIUM CARBONAT E (CALCIUM 600 ORAL) Take by mouth twice daily. 0 Active Comment on above: Take by mouth twice daily. Folic Acid (7 sources) End: 10-17-2023 take 800 mg by mouth once daily FOLIC ACID ORAL Take 800 mg by mouth once daily. 0 10/17/2023 Discontinued take 800 mg by mouth once daily FOLIC ACID ORAL Take 800 mg by mouth once daily. 0 Active Comment on above: Take 800 mg by mouth once daily. metoprolol tartrate 100 mg oral tablet (7 sources) beta-Adrenergic Mesfin End: 10-17-2023 take 1 tablet by mouth twice daily metoprolol tartrate, short acting, 100 mg tablet Take 100 mg by mouth twice daily. 0 10/17/2023 Discontinued Comment on above: Take 100 mg by mouth twice daily. OMEGA-3 FATTY ACIDS/FISH OIL (OMEGA 3 FISH OIL ORAL) (7 sources) End: 10-17-2023 OMEGA-3 FATTY ACIDS/FISH OIL (OMEGA 3 FISH OIL ORAL) Take by mouth. 0 10/17/2023 Discontinued OMEGA-3 FATTY AC IDS/FISH OIL (OMEGA 3 FISH OIL ORAL) Take by mouth. 0 Active Comment on above: Take by mouth. OMEGA-3/DHA/EPA/FISH OIL (OMEGA-3 FISH OIL ORAL) (7 sources) End: 10-17-2023 OMEGA-3/DHA/EPA/FISH OIL (OMEGA-3 FISH OIL ORAL) Take 1,200 mg by mouth twice daily. 0 10/17/2023 Discontinued OMEGA-3/DHA/EPA/ FISH OIL (OMEGA-3 FISH OIL ORAL) Take 1,200 mg by mouth twice daily. 0 Active Comment on above: Take 1,200 mg by clyde th twice daily. Problems Active Problems Problem Classification Problem Date Documented Da te Episodic/Chronic Anxiety disorders (1 source) Anxiety disorder, unspecified; 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: [ANXIETY DISORDER, UNSPECIFIED] Onset: 08-11-2017 Chronic Chronic obstructive pulmonary disease and bronchiectasis (10 sources) Chronic obstructive pulmonary disease, unspecified; 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: [...] Onset: 08-11-2017 Chronic Disorders of lipid metabolism (20 sources) Hyperlipidemia, unspecified; 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: [Pure hypercholesterolemia , unspecified] Onset: 06-18-2014 Chronic Essential hypertension (20 sources) Essential (primary) hypertension; 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: [Essential hypertension] Onset: 07-02-2013 Chronic External Injury - Fall (1 source) Unspecified fall, initial encounter; 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: [UNSPECIFIED FALL, INITIAL ENCOUNTER] Onset: 08-11-2017 Hypertension with complications and secondary hypertension (1 source) Hypertensive heart disease with heart failure; 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: [HTN HEART DISEASE W/HEART FAIL] Onset: 10-12-2022 Chronic Nutritional deficiencies (3 sources) Unspecified protein-calorie malnutrition; 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: [Vitamin D deficiency, unspecified] Onset: 08-11-2017 Chronic Other circulatory disease (1 source) Personal history of transient ischemic attack (TIA), and cerebral infarction without residual deficits; 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: [Personal history of transient ischemic attack (TIA), and cerebral infarction without residual deficits] Onset: 08-14-2023 Episodic Other eye disorders (1 source) Degenerative disorder of eye; 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, bilateral eye] 09-13-2023 Chronic Other eye disorders (1 source) Degenerative myopia with other maculopathy, bilateral eye; 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, bilateral eye] Onset: 09-13-2023 Chronic Other hereditary and degenerative nervous system conditions (1 source) Dystonia, unspecified; 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: [Dystonia, unspecified] Onset: 05-15-2023 Chronic Other lower respiratory disease (1 source) Hypoxemia; 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: [Hypoxemia] Onset: 06-23-2023 Episodic Other nervous system disorders (13 sources) Neuropathy; 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: [Polyneuropathy, unspecified] Onset: 09-13-2023 09-13-2023 Chronic Other nervous system disorders (1 source) Polyneuropathy, unspecified; 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: [Neuropathy] Onset: 09-13-2023 Chronic Other nutritional; endocrine; and metabolic disorders (2 sources) Hypocalcemia; 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: [Other disorders of phosphorus metabolism] Onset: 08-11-2017 Chronic Other screening for suspected conditions (not mental disorders or infectious disease) (1 source) Blood chemistry abnormal; 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: [Other specified abnormal findings of blood chemistry] Onset: 06-23-2023 Episodic Parkinson's disease (4 sources) Parkinson's disease; 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: [Parkinson's disease] Onset: 08-11-2017 06-23-2023 Chronic Parkinson`s disease (1 source) Parkinson`s disease; 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: [Parkinson's disease with dyskinesia and fluctuating manifestations (HCC)] Onset: 09-13-2023 Residual codes; unclassified (1 source) Insomnia, unspecified; [...] W OTH DISORDERS] Onset: 08-11-2017 Chronic Unclassified (20 sources) Parkinson's disease; 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: [Parkinson's disease without dyskinesia, without mention of fluctuations] Onset: 06-23-2023 Chronic 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) half-way (current) use of oral hypoglycemic drugs; 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: [HALFWAY (CURRENT) USE OF ORAL HYPOGLYCEMIC DRUGS] Onset: 08-11-2017 Unclassified (2 sources) Unknown / UNK(Unknown) Onset: 08-11-2017 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) PERSONAL HISTORY OF COVID-19; 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: [PERSONAL HISTORY OF COVID-19] Onset: 05-22-2022 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) UNVACCINATED FOR COVID-19; 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: [UNVACCINATED FOR COVID-19] Onset: 05-22-2022 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) CONTACT W/AND (SUSP) EXPOS COVID-19; 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: [CONTACT W/AND (SUSP) EXPOS COVID-19] Onset: 05-22-2022 Unclassified (2 sources) Post-op; 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: [Post-op] Onset: 11-27-2023 Urinary tract infections (2 sources) Urinary tract infection, site not specified; 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: [Urinary tract infectious disease] Onset: 03-31-2022 Episodic Past or Other Problems Problem Classification Problem Date Documented Date Episodic/Chronic Abdominal hernia (4 sources) Incisional hernia without obstruction or gangrene; 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: [Diaphragmatic hernia without obstruction or gangrene] Onset: 08-07-2023 Episodic Abdominal pain (4 sources) Unspecified abdominal pain; 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: [UNSPECIFIED ABDOMINAL PAIN] Onset: 03-29-2022 Episodic Acute bronchitis (1 source) Acute bronchitis, unspecified; 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: [ACUTE BRONCHITIS UNSPECIFIED] Onset: 05-22-2022 Episodic Acute posthemorrhagic anemia (1 source) Acute posthemorrhagic anemia; 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: [ACUTE POSTHEMORRHAGIC ANEMIA] Onset: 08-11-2017 Episodic Calculus of urinary tract (12 sources) Kidney stone; 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: [Calculus of kidney] Onset: 02-20-2020 02-20-2020 Episodic Coagulation and hemorrhagic disorders (2 sources) Spontaneous ecchymoses; 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: [Spontaneous ecchymoses] Onset: 08-22-2023 Episodic Crushing injury or internal injury (3 sources) Unspecified injury of spleen, initial encounter; 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: [Major laceration of spleen, initial encounter] Onset: 08-11-2017 Episodic Fluid and electrolyte disorders (2 sources) Hypokalemia; 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: [HYPOKALEMIA] Onset: 08-11-2017 Episodic Gastroduodenal ulcer (except hemorrhage) (2 sources) Acute gastric ulcer without hemorrhage or perforation; 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: [Acute gastric ulcer without hemorrhage or perforation] Onset: 08-13-2023 Episodic Genitourinary symptoms and ill-defined conditions (13 sources) Personal history of urinary (tract) infections; 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: [History of recurrent urinary tract infection] Onset: 03-23-2020 03-23-2020 Episodic Immunizations and screening for infectious disease (1 source) Encounter for immunization; 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: [ENCOUNTER FOR IMMUNIZATION] Onset: 08-11-2017 Episodic Intestinal obstruction without hernia (1 source) Ileus, unspecified; 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: [ILEUS, UNSPECIFIED] Onset: 08-11-2017 Episodic Malaise and fatigue (3 sources) Weakness; 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: [Asthenia] Onset: 05-22-2022 Episodic Nausea and vomiting (1 source) Nausea; 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: [NAUSEA] Onset: 03-31-2022 Episodic Nonspecific chest pain (4 sources) Chest pain, unspecified; 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: [CHEST PAIN UNSPECIFIED] Onset: 05-24-2022 Episodic Other aftercare (2 sources) half-way (current) use of aspirin; 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: [DENSITOMETER READER (CURRENT) USE OF ASPIRIN] Onset: 08-11-2017 Episodic Other aftercare (1 source) Other nursing home (current) drug therapy; 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: [OTH DENSITOMETER READER CURRENT DRUG THERAPY] Onset: 05-22-2022 Episodic Other connective tissue disease (14 sources) Abnormal posture; 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: [Abnormal posture] Onset: 09-13-2023 09-13-2023 Episodic Other connective tissue disease (1 source) Abnormal posture; 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: [Abnormal posture] Onset: 09-13-2023 Episodic Other diseases of kidney and ureters (2 sources) Hydronephrosis 02-10-2020 Episodic Other diseases of kidney and ureters (2 sources) Kidney disease 02-10-2020 Episodic Other diseases of kidney and ureters (14 sources) Obstruction of pelviureteric junction; 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: [Crossing vessel and stricture of ureter without hydronephrosis] Onset: 02-20-2020 02-10-2020 Episodic Other diseases of kidney and ureters (12 sources) Stricture of ureter; 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: [Crossing vessel and stricture of ureter without hydronephrosis] Onset: 03-23-2020 03-23-2020 Episodic Other hematologic conditions (1 source) Other specified abnormalities of plasma proteins; 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: [OTH SPEC ABNORM PLASMA PROTEINS] Onset: 05-22-2022 Episodic Other lower respiratory disease (1 source) Acute pulmonary edema; 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: [ACUTE PULMONARY EDEMA] Onset: 08-11-2017 Episodic Other lower respiratory disease (1 source) Personal history of pneumonia (recurrent); 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: [PERSONAL HX OF PNEUMONIA RECURRENT] Onset: 05-22-2022 Episodic Other lower respiratory disease (2 sources) History of chronic lung disease 02-10-2020 Episodic Other nervous system disorders (4 sources) Ataxia, unspecified; 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: [ATAXIA UNSPECIFIED] Onset: 12-27-2021 Episodic Other nervous system disorders (13 sources) Hyperreflexia; 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: [Abnormal reflex] Onset: 09-13-2023 09-13-2023 Episodic Other nervous system disorders (2 sources) Other acute postprocedural pain; 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: [Other acute postprocedural pain] Onset: 09-17-2023 Episodic Other nutritional; endocrine; and metabolic disorders [...] [ACQUIRED ABSENCE OF SPLEEN] Onset: 05-22-2022 Episodic Residual codes; unclassified (13 sources) Memory impairment; 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: [Other amnesia] Onset: 09-13-2023 09-13-2023 Episodic Respiratory failure; insufficiency; arrest (adult) (1 [...] sepsis without septic shock] Onset: 05-08-2022 Episodic Spondylosis; intervertebral disc disorders; other back problems (6 sources) Spinal stenosis in cervical region; 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: [Spinal stenosis, cervical region] Onset: 10-07-2023 09-13-2023 Episodic 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) Body mass index (BMI) 20.0-20.9, adult; 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: [BODY MASS INDEX (BMI) 20.0-20.9, ADULT] Onset: 08-11-2017 Episodic Results Test Name Value Interpretation Reference Range Facility [facility] 02-22-2024 CNOV Office Visit (NREUS2 ) JUDITH KHAN ([id number]) 1945 F Date Time Provider Department 02/22/24 3:00 PM MARIOLA MONTES NREUS2 During your visit today, we recorded the following information about you: Pulse Blood pressure 92/minute 133/73 Ga Shaw MA 02/22/2024 4:46 PM Signed Reason for WROTF Tablet to not get completed: Patient wishes to abort because of stress/struggling or is interrupted by their hris specialist. Mariola Montes PA-C 02/22/2024 4:46 PM Signed [facility] - FOLLOW UP EVALUATION Md Kavon Sams (Inactive) No address on file Dear Md Kavon Sams (Inactive): I had the pleasure of seeing Ms. Khan for follow-up today. As you know she is a 79 year old right-handed female with a history of parkinson disease since 2014. She is seen with her daughter.. Subjective Previous Plan-01/14/2024 Visit: 'Jerking' AKA Dyskinesias - this got significantly worse when you increased from 1/2 tablet Sinemet three times per day up to 1 full tablet Sinemet three times per day. Amantadine helped temporarily, but now your dyskinesias are bad again. You may STOP regular Sinemet You may START Sinemet controlled release (CR) on the same schedule Please CONTINUE amantadine 2x per day Parkinson's Disease - please keep up your physical therapy and occupational therapy exercises at home! Try to do some every day Dry mouth - please grain picker some OTC spray to help Please come back to see me February 21 at 3:00PM Interval History: Judith presents to the office today for Parkinson's disease follow-up. Per instructions, she replaced Sinemet IR with Sinemet CR. She states that she is doing significantly better. She hardly has any tremor. She has been walking more and feeling in better spirits. She is still doing all of her cleaning and laundry. Her her dyskinesias are minimal. She feels that this medication change has been life-changing. She decided that she is going to travel to [place] to see her friends, which prior to this medication change she did not feel that she could do. Movement Disorders Medications Schedule - as of the start of the visit: Medications breakfast lunch bedtime ropinerole 0.25mg 1 azilect 1mg 1 sinemet CR 25/100mg 1 1 1 amantadine 100 mg 1 1 Prior Anti-Parkinson Therapies Carbidopa/Levodopa Rasagiline Ropinirole ALLERGIES Allergen Reactions Aleve [Naproxen Sod* Unknown Sulfa (Sulfonamide * Anaphylaxis Current Outpatient Medications Medication Sig carbidopa-levodopa CR (SINEMET CR) 25-100 mg per tablet Take 1 tablet by mouth three times a day. 7AM, 12PM, 5PM amantadine HCl (SYMMETREL) 100 mg tablet Take 1 tablet by mouth two times a day. Take with first and second dose of sinemet. gabapentin (NEURONTIN) 300 mg capsule TAKE 1 CAPSULE BY MOUTH ONCE DAILY X3DAYS, 1 CAPSULE TWICE DAILY X3DAYS THEN 1 CAPSULE 3 TIMES DAILY rasagiline (AZILECT) 1 mg tab Take by mouth. cyclobenzaprine (FLEXERIL) 10 mg tablet Take 10 mg by mouth. rOPINIRole (REQUIP) 0.25 mg tablet Reduce to 2 tablets, twice/day. After a week, reduce it to 1 tablet in morning and 2 tabs at night. After a week, reduce to only 2 tabs at night. After a week, reduce it to 1 tab at night. Continue on that dose thereafter. aspirin, enteric coated (ASPIR-LOW) 81 mg EC tablet Take 1 tablet by mouth once daily. pravastatin 20 mg tablet Take 20 mg by mouth once daily. lisinopril-hydrochlorothiazi de 20-25 mg per tablet Take 1 tablet by mouth once daily. ALPRAZolam (XANAX) 1 mg tablet Take 1 mg by mouth at bedtime as needed. potassium chloride (KLOR-CON 10) 10 mEq tablet Take 20 mEq by mouth once daily. AMLODIPINE BESYLATE (AMLODIPINE ORAL) Take 10 mg by mouth once daily. Cholecalciferol, Vitamin D3, (D3 DOTS) 2,000 unit tab Take 2,000 Units by mouth once daily. MULTIVITAMIN (VITAMIN DAILY ORAL) Take by mouth once daily. KLOR-CON M20 20 mEq tablet Take 1 tablet by mouth every 12 hours. (Patient not taking: Reported on 09/13/2023) No current facility-administered medications for this visit. Objective Vital Signs: BP 133/73 (BP Site: Left Arm, BP Position: Sitting, BP Cuff Size: Regular Adult) Pulse 92 SpO2 95% General Physical Examination: Awake, alert, interactive, no acute distress, well kept woman. Mildly dyskinetic. MDS-UPDRS Motor subscale condition of exam Medication Off/On/Naiive ON Time of UPDRS 1530 Time of Last Medication 1200 Last Medication Taken Sinemet 25-100 1 tab DBS Right N/A DBS Left N/A MDS-UPDRS Motor subscale scores Speech 2-Mild. Loss of modulation, diction, or volume, with a few words unclear, but the overall sentences easy to follow. Facial Expression 2-Mild. In addition to decreased eye-blink frequency, Masked facies present in the lower face as well, namely fewer movements around the mouth, such as less spontaneous s (more content not included)... Normal [facility] CNOVon 01-14-2024 CNOV Office Visit (NREUS2 ) JUDITH KHAN ([id number]) 1945 F Date Time Provider Department 01/14/24 2:00 PM MARIOLA MONTES NREUS2 During your visit today, we recorded the following information about you: Pulse Blood pressure Weight Height 92/minute 144/63 54 kg 1.676 m Mariola Montes PA-C 01/14/2024 8:44 PM Signed [facility] - FOLLOW UP EVALUATION Md Kavon Sams (Inactive) No address on file Dear Md Kavon Sams (Inactive): I had the pleasure of seeing Ms. Khan for follow-up today. As you know she is a 78 year old right-handed female with a history of parkinson disease since 2014. She is seen with her daughter Kathie. Subjective Previous Plan-10/15/2023 Visit: Parkinson's Disease-Continue sinemet Start Amantadine 100 mg once daily Follow up with Dr. Valente in 3 months Interval History: Judith presents to the office for Parkinson's Disease follow up. She was evaluated by Dr. Valente this spring. Reports that she restarted sinemet slowly as directed. This was very helpful for her tremor. She now takes 1 tablet TID. While increasing from 0.5 tablets to 1 tablet TID, she developed very bothersome dyskinesias. Amantadine was started. She says that this was like a miracle for two weeks, but then the dyskinesias started again. Amantadine was increased to BID, which helped for a short while, but now her dyskinesias are severe. Also developed dry mouth with amantadine. She admits to some trouble with balance, but has no recent falls. She is quite upset and frustrated about her dyskinesia. She is embarrassed to go anywhere because of it. Movement Disorders Medications Schedule - as of the start of the visit: Medications breakfast lunch bedtime ropinerole 0.25mg 1 azilect 1mg 1 sinemet 25/100mg 1 1 1 amantadine 100 mg 1 1 Prior Anti-Parkinson Therapies Carbidopa/Levodopa Rasagiline Ropinirole ALLERGIES Allergen Reactions Aleve [Naproxen Sod* Unknown Sulfa (Sulfonamide * Anaphylaxis Current Outpatient Medications Medication Sig amantadine HCl (SYMMETREL) 100 mg tablet Take 1 tablet by mouth two times a day. Take with first and second dose of sinemet. gabapentin (NEURONTIN) 300 mg capsule TAKE 1 CAPSULE BY MOUTH ONCE DAILY X3DAYS, 1 CAPSULE TWICE DAILY X3DAYS THEN 1 CAPSULE 3 TIMES DAILY rasagiline (AZILECT) 1 mg tab Take by mouth. cyclobenzaprine (FLEXERIL) 10 mg tablet Take 10 mg by mouth. rOPINIRole (REQUIP) 0.25 mg tablet Reduce to 2 tablets, twice/day. After a week, reduce it to 1 tablet in morning and 2 tabs at night. After a week, reduce to only 2 tabs at night. After a week, reduce it to 1 tab at night. Continue on that dose thereafter. aspirin, enteric coated (ASPIR-LOW) 81 mg EC tablet Take 1 tablet by mouth once daily. pravastatin 20 mg tablet Take 20 mg by mouth once daily. lisinopril-hydrochlorothiazi de 20-25 mg per tablet Take 1 tablet by mouth once daily. ALPRAZolam (XANAX) 1 mg tablet Take 1 mg by mouth at bedtime as needed. potassium chloride (KLOR-CON 10) 10 mEq tablet Take 20 mEq by mouth once daily. AMLODIPINE BESYLATE (AMLODIPINE ORAL) Take 10 mg by mouth once daily. Cholecalciferol, Vitamin D3, (D3 DOTS) 2,000 unit tab Take 2,000 Units by mouth once daily. MULTIVITAMIN (VITAMIN DAILY ORAL) Take by mouth once daily. carbidopa-levodopa CR (SINEMET CR) 25-100 mg per tablet Take 1 tablet by mouth three times a day. 7AM, 12PM, 5PM KLOR-CON M20 20 mEq tablet Take 1 tablet by mouth every 12 hours. (Patient not taking: Reported on 09/13/2023) No current facility-administered medications for this visit. Objective Vital Signs: BP 144/63 (BP Site: Right Arm, BP Position: Sitting, BP Cuff Size: Regular Adult) Pulse 92 Ht 167.6 cm (5' 6 ) Wt 54 kg (119 lb) SpO2 92% BMI 19.21 kg/m? General Physical Examination: Awake, alert, interactive, no acute distress, normal development, well-kept woman. Severely dyskinetic. Leaning left in chair. Right arm flexed and held against torso at rest, hand in fist. MDS-UPDRS Motor subscale condition of exam Medication Off/On/Naiive ON Time of UPDRS 1415 Time of Last Medication 1200 Last Medication Taken Sinemet 25-100 1 tab + amantadine 100 mg DBS Right N/A DBS Left N/A MDS-UPDRS Motor subscale scores Speech 2-Mild. Loss of modulation, diction, or volume, with a few words unclear, but the overall sentences easy to follow. Facial Expression 3-Moderate. Masked facies with lips parted some of the time when the mouth is at rest. Rigidity Neck 1-Slight. Rigidity only detected with activation maneuver. Rigidity Right Upper Extremity 0-Normal. No rigidity. Rigidity Left Upper Extremity 0-Normal. No rigidity. Rigidity Right Lower Extremity 0-Normal. No rigidity. Rigidity Left Lower Extremity 0-Normal. No rigidity. Finger Taps Right 3-Moderate. a) more than 5 interruptions during tapping or a (more content not included)... Normal [facility] Office Visiton 12-20-2023 Follow-up visit [id number] Donato Khan 1945 F Date Provider Department Center 12/20/2023 3848-STEPHENIE PRECIADO [facility] Family History Problem Relation Age of Onset Stroke Mother Stroke Brother Other Mother's Sister Coronary artery disease Mother's Sister Stroke Maternal Grandmother Family Status - Relation Status Age at Mother Brother Mother's Sister Maternal Grandmother Level of Service:08683 [place] OFFICE/OUTPATIENT ESTABLISHED MOD MDM 30 MIN Normal [facility] 36on 12-04-2023 36 . Normal [facility] Office Visiton 11-27-2023 Follow-up visit [id number] Donato Khan A 1945 F Date Provider Department Center 11/27/2023 454-VERENA SHEEHAN [facility] [place] Family History Problem Relation Age of Onset Stroke Mother Stroke Brother Other Mother's Sister Coronary artery disease Mother's Sister Stroke Maternal Grandmother Family Status - Relation Status Age at Mother Brother Mother's Sister Maternal Grandmother Level of Service:00596 [place] POSTOP FOLLOW UP VISIT RELATED TO ORIGINAL PX Reason for Visit and Comments: Post-op [483] - Judith is here today for a post op visit for an incisional hernia, s/p 09/17/23 DaVinci incisional hernia repair. [facility] CNPNon 11-08-2023 CNPN Telephone (NREUS2) JUDITH KHAN ([id number]) 1945 F Date Time Provider Department 11/08/23 DAVID VALENTE NREUS2 During your visit today, we recorded the following information about you: Leonora Cisneros 11/08/2023 12:01 PM Addendum Jaimee (pt' granddaughter) called to report this week pt's back to experiencing jerking movement. Pt started Amantadine 100 mg week of October 24 and first week medication helped dyskinesia. [phone] 09/13/23 FUV w/Dulce Mariano, RN 11/08/2023 12:57 PM Signed Spoke with Jaimee. Reports that pt is experiencing right sided dyskinesia (arm/shoulder). Pt has been taking 100mg Amantadine daily. She initially had relief from the dyskinesia but now they have returned. David Valente MD 11/08/2023 2:34 PM Signed Ok, if no side effects can she please increase to 100mg in morning and 100mg at noon? I will update the prescription. Dulce Melgar RN 11/08/2023 2:48 PM Signed Spoke with Jaimee. Instructed her to increase the Amantadine to 100mg BID (to be taken with the first 2 daily doses of Sinemet). Jaimee verbalized understanding and is in agreement with POC. Dulce Melgar RN 11/08/2023 2:48 PM Signed Addended by: DULCE MELGAR on: 11/08/2023 02:48 PM Modules accepted: Orders David Valente MD 11/08/2023 3:27 PM Signed Addended by: DAVID VALENTE on: 11/08/2023 03:27 PM Modules accepted: Orders Allergies As of Date: 11/08/2023 Noted Allergy Reaction ALEVE (NAPROXEN SODIUM) 07/02/2013 16 - Unknown SULFA (SULFONAMIDE ANTIBIOTICS) 07/02/2013 10 - Anaphylaxis Date Reviewed: 10/07/2023 Reviewed by: Princess River RN - Fully Assessed Reason for Visit: Medication Update/Amantadine [Other] Visit Diagnosis:Parkinson's disease with dyskinesia and fluctuating manifestations (HCC) [G20.B2] Order(s):amantadine HCl (SYMMETREL) 100 mg tabletTake 1 tablet by mouth two times a day. Take with first and second dose of sinemet.Disp: 180 tabletRfl: 3 Prescriptions as of 11/08/2023 - amantadine HCl (SYMMETREL) 100 mg tablet Take 1 tablet by mouth two times a day. Take with first and second dose of sinemet. - gabapentin (NEURONTIN) 300 mg capsule TAKE 1 CAPSULE BY MOUTH ONCE DAILY X3DAYS, 1 CAPSULE TWICE DAILY X3DAYS THEN 1 CAPSULE 3 TIMES DAILY - rasagiline (AZILECT) 1 mg tab Take by mouth. - KLOR-CON M20 20 mEq tablet Take 1 tablet by mouth every 12 hours. - cyclobenzaprine (FLEXERIL) 10 mg tablet Take 10 mg by mouth. - carbidopa-levodopa (SINEMET) 25-100 mg per tablet Take 0.5 tablets by mouth three times a day for 7 days, THEN 1 tablet three times a day. Take at 7am, noon, and 5pm.. - rOPINIRole (REQUIP) 0.25 mg tablet Reduce to 2 tablets, twice/day. After a week, reduce it to 1 tablet in morning and 2 tabs at night. After a week, reduce to only 2 tabs at night. After a week, reduce it to 1 tab at night. Continue on that dose thereafter. - aspirin, enteric coated (ASPIR-LOW) 81 mg EC tablet Take 1 tablet by mouth once daily. - pravastatin 20 mg tablet Take 20 mg by mouth once daily. - lisinopril-hydrochlorothiazi de 20-25 mg per tablet Take 1 tablet by mouth once daily. - ALPRAZolam (XANAX) 1 mg tablet Take 1 mg by mouth at bedtime as needed. - potassium chloride (KLOR-CON 10) 10 mEq tablet Take 20 mEq by mouth once daily. - AMLODIPINE BESYLATE (AMLODIPINE ORAL) Take 10 mg by mouth once daily. - Cholecalciferol, Vitamin D3, (D3 DOTS) 2,000 unit tab Take 2,000 Units by mouth once daily. - MULTIVITAMIN (VITAMIN DAILY ORAL) Take by mouth once daily. Problem List As Of Date 11/08/2023 Noted Resolved Hypertension [I10] 07/02/2013 Pre-operative cardiovascular exam, new EKG abno*07/02/2013 Hyperlipidemia [E78.5] 06/18/2014 UPJ (ureteropelvic junction) obstruction [N13.5]02/20/2020 Renal stone [N20.0] 02/20/2020 Ureteral stricture [N13.5] 03/23/2020 History of recurrent UTI (urinary tract infecti*03/23/2020 Hyperreflexia [R29.2] 09/13/2023 Abnormal posture [R29.3] 09/13/2023 Neuropathy [G62.9] 09/13/2023 Parkinson's disease (HCC) [G20.A1] 09/13/2023 Memory changes [R41.3] 09/13/2023 Prescriptions ordered this encounter Disp Refills Start End AMANTADINE HCL 100 MG TABLET 180 * 3 11/08/2023 11/08/2023 Route: ORAL Sig: Take 1 tablet by mouth two times a day. Take with first and second dose of sinemet. AMANTADINE HCL 100 MG TABLET 180 * 3 11/08/2023 11/07/2024 Route: ORAL Sig: Take 1 tablet by mouth two times a day. Take with first and second dose of sinemet. Medications Discontinued During This Encounter Prescriptions - amantadine HCl (SYMMETREL) 100 mg tablet (Discontinued) Take 1 tablet by mouth once daily. - amantadine HCl (SYMMETREL) 100 mg tablet (Discontinued) Take 1 tablet by mouth two times a day. Take with first and second dose of sinemet. Encounter Statu (more content not included)... Normal [facility] 10-17-2023 [facility] Telephone (NREUS2) JUDITH KHAN ([id number]) 1945 F Date Time Provider Department 10/17/23 DAVID VALENTE NREUS2 During your visit today, we recorded the following information about you: Gabbi Lu 10/17/2023 10:17 AM Signed Judith phoned for results of MRI done on 10/06. She does not use and would like a return call. 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 We can discuss at her next in person visit and show her the images then. Thanks, -Dulce Walters RN 10/17/2023 11:16 AM Signed Spoke with pt. 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 She is agreeable to discussing in more detail at next office visit. Gabbi Lu 10/22/2023 9:39 AM Signed Pt's daughter phoned stating that her mother was supposed to have called regarding the increased dyskinesias that she has been experiencing. She also does not recall the discuss of the MRI results. Please call daughter Kathie only to discuss [phone]. I also updated all of the phone number in her chart to reflect only Kathie's. Dulce Melgar RN 10/22/2023 10:24 AM Signed Spoke with Kathie. As of 10/17/23 pt was supposed to start 100mg Amantadine daily for increased dyskinesia. Pt has not yet started, they would like the script sent to [facility] in [place] (instead of [facility]). Script sent as requested. Also reviewed MRI results with Kathie. She verbalizes understanding. No additional questions at this time. Dulce Melgar RN 10/22/2023 10:24 AM Signed Addended by: DULCE MELGAR on: 10/22/2023 10:24 AM Modules accepted: Orders Alia Hull 10/22/2023 10:30 AM Signed First Attempt - EC Allergies As of Date: 10/17/2023 Noted Allergy Reaction ALEVE (NAPROXEN SODIUM) 07/02/2013 16 - Unknown SULFA (SULFONAMIDE ANTIBIOTICS) 07/02/2013 10 - Anaphylaxis Date Reviewed: 10/07/2023 Reviewed by: Princess River RN - Fully Assessed Reason for Visit: Results [95] Cmt: MRI Visit Diagnosis:Parkinson's disease with dyskinesia and fluctuating manifestations (HCC) [G20.B2] Order(s):amantadine HCl (SYMMETREL) 100 mg tabletTake 1 tablet by mouth once daily.Disp: 30 tabletRfl: 2 Prescriptions as of 10/23/2023 - amantadine HCl (SYMMETREL) 100 mg tablet Take 1 tablet by mouth once daily. - gabapentin (NEURONTIN) 300 mg capsule TAKE 1 CAPSULE BY MOUTH ONCE DAILY X3DAYS, 1 CAPSULE TWICE DAILY X3DAYS THEN 1 CAPSULE 3 TIMES DAILY - rasagiline (AZILECT) 1 mg tab Take by mouth. - KLOR-CON M20 20 mEq tablet Take 1 tablet by mouth every 12 hours. - cyclobenzaprine (FLEXERIL) 10 mg tablet Take 10 mg by mouth. - carbidopa-levodopa (SINEMET) 25-100 mg per tablet Take 0.5 tablets by mouth three times a day for 7 days, THEN 1 tablet three times a day. Take at 7am, noon, and 5pm.. - rOPINIRole (REQUIP) 0.25 mg tablet Reduce to 2 tablets, twice/day. After a week, reduce it to 1 tablet in morning and 2 tabs at night. After a week, reduce to only 2 tabs at night. After a week, reduce it to 1 tab at night. Continue on that dose thereafter. - aspirin, enteric coated (ASPIR-LOW) 81 mg EC tablet Take 1 tablet by mouth once daily. - pravastatin 20 mg tablet Take 20 mg by mouth once daily. - lisinopril-hydrochlorothiazi de 20-25 mg per tablet Take 1 tablet by mouth once daily. - ALPRAZolam (XANAX) 1 mg tablet Take 1 mg by mouth at bedtime as needed. - potassium chloride (KLOR-CON 10) 10 mEq tablet Take 20 mEq by mouth once daily. - AMLODIPINE BESYLATE (AMLODIPINE ORAL) Take 10 mg by mouth once daily. - Cholecalciferol, Vitamin D3, (D3 DOTS) 2,000 unit tab Take 2,000 Units by mouth once daily. - MULTIVITAMIN (VITAMIN DAILY ORAL) Take by mouth once daily. Problem List As Of Date 10/17/2023 Noted Resolved Hypertension [I10] 07/02/2013 Pre-operative cardiovascular exam, new EKG abno*07/02/2013 Hyperlipidemia [E78.5] 06/18/2014 UPJ (ureteropelvic junction) obstruction [N13.5]02/20/2020 Renal stone [N20.0] 02/20/2020 Ureteral stricture [N13.5] 03/23/2020 History of recurrent UTI (urinary tract infecti*03/23/2020 Hyperreflexia [R29.2] 09/13/2023 Abnormal posture [R29.3] 09/13/2023 Neuropathy [G62.9] 09/13/2023 Parkinson's disease (HCC) [G20.A1] 09/13/2023 Memory changes [R41.3] 09/13/2023 Prescriptions ordered this encounter Disp Refills Start End AMANTADINE HCL 100 MG TABLET 30 t* 2 10/22/2023 01/20/2024 Route: ORAL Sig: Take 1 tablet by mouth once daily. Cosign required by DAVID VALENTE[[id number]] Medications Discontinued During This Encounter Prescriptions - amantadine HCl (SYMMETREL) 100 mg tablet (Discontinued) Take 1 tablet by mouth once daily. (more content not included)... Normal [facility] 10-09-2023 CNPN Telephone (NREUS2) BILLJUDITH ([id number]) 1945 F Date Time Provider Department 10/09/23 DAVID VALENTE NREUS2 During your visit today, we recorded the following information about you: Davin Mila 10/09/2023 11:41 AM Signed Patients daughter calling to say there was medication discussed during last OV for dyskinesia. They want to know what it was and if it can be prescribed because she's still having this issue. Kathie Calvillo (Daughter) [phone] (Home Phone) David Valente MD 10/17/2023 9:43 AM Signed Dear Neelima, If she lives alone, I'd prefer the zonisamide. If she lives with someone who can monitor for the possible cognitive side effects of amantadine, I'd prefer amantadine. Thanks! -Neelima Miguel APRN.[facility] 10/17/2023 5:29 PM Signed Addended by: NEELIMA ORTEGA on: 10/17/2023 05:29 PM Modules accepted: Orders Allergies As of Date: 10/09/2023 Noted Allergy Reaction ALEVE (NAPROXEN SODIUM) 07/02/2013 16 - Unknown SULFA (SULFONAMIDE ANTIBIOTICS) 07/02/2013 10 - Anaphylaxis Date Reviewed: 10/07/2023 Reviewed by: Princess River RN - Fully Assessed Reason for Visit: Primary Visit Diagnosis:Parkinson's disease with dyskinesia and fluctuating manifestations (HCC) [G20.B2] Order(s):amantadine HCl (SYMMETREL) 100 mg tabletTake 1 tablet by mouth two times a day.Disp: 30 tabletRfl: 2 Prescriptions as of 10/17/2023 - amantadine HCl (SYMMETREL) 100 mg tablet Take 1 tablet by mouth two times a day. - gabapentin (NEURONTIN) 300 mg capsule TAKE 1 CAPSULE BY MOUTH ONCE DAILY X3DAYS, 1 CAPSULE TWICE DAILY X3DAYS THEN 1 CAPSULE 3 TIMES DAILY - rasagiline (AZILECT) 1 mg tab Take by mouth. - KLOR-CON M20 20 mEq tablet Take 1 tablet by mouth every 12 hours. - cyclobenzaprine (FLEXERIL) 10 mg tablet Take 10 mg by mouth. - carbidopa-levodopa (SINEMET) 25-100 mg per tablet Take 0.5 tablets by mouth three times a day for 7 days, THEN 1 tablet three times a day. Take at 7am, noon, and 5pm.. - rOPINIRole (REQUIP) 0.25 mg tablet Reduce to 2 tablets, twice/day. After a week, reduce it to 1 tablet in morning and 2 tabs at night. After a week, reduce to only 2 tabs at night. After a week, reduce it to 1 tab at night. Continue on that dose thereafter. - aspirin, enteric coated (ASPIR-LOW) 81 mg EC tablet Take 1 tablet by mouth once daily. - metoprolol tartrate, short acting, 100 mg tablet Take 100 mg by mouth twice daily. - pravastatin 20 mg tablet Take 20 mg by mouth once daily. - lisinopril-hydrochlorothiazi de 20-25 mg per tablet Take 1 tablet by mouth once daily. - ALPRAZolam (XANAX) 1 mg tablet Take 1 mg by mouth at bedtime as needed. - potassium chloride (KLOR-CON 10) 10 mEq tablet Take 20 mEq by mouth once daily. - AMLODIPINE BESYLATE (AMLODIPINE ORAL) Take 10 mg by mouth once daily. - FOLIC ACID ORAL Take 800 mg by mouth once daily. - Cholecalciferol, Vitamin D3, (D3 DOTS) 2,000 unit tab Take 2,000 Units by mouth once daily. - MULTIVITAMIN (VITAMIN DAILY ORAL) Take by mouth once daily. - CALCIUM CARBONATE (CALCIUM 600 ORAL) Take by mouth twice daily. - OMEGA-3 FATTY ACIDS/FISH OIL (OMEGA 3 FISH OIL ORAL) Take by mouth. - OMEGA-3/DHA/EPA/FISH OIL (OMEGA-3 FISH OIL ORAL) Take 1,200 mg by mouth twice daily. Problem List As Of Date 10/09/2023 Noted Resolved Hypertension [I10] 07/02/2013 Pre-operative cardiovascular exam, new EKG abno*07/02/2013 Hyperlipidemia [E78.5] 06/18/2014 UPJ (ureteropelvic junction) obstruction [N13.5]02/20/2020 Renal stone [N20.0] 02/20/2020 Ureteral stricture [N13.5] 03/23/2020 History of recurrent UTI (urinary tract infecti*03/23/2020 Hyperreflexia [R29.2] 09/13/2023 Abnormal posture [R29.3] 09/13/2023 Neuropathy [G62.9] 09/13/2023 Parkinson's disease (HCC) [G20.A1] 09/13/2023 Memory changes [R41.3] 09/13/2023 Prescriptions ordered this encounter Disp Refills Start End AMANTADINE HCL 100 MG TABLET 30 t* 2 10/17/2023 Route: ORAL Sig: Take 1 tablet by mouth two times a day. Encounter Status:Closed by GABBI LU on 10/17/23 Normal [facility] MR Cervical spine WO contrchuck ton 10-07-2023 * * *Final Report* * * DATE OF EXAM: Oct 07 2023 11:41AM QBM [id number] - MRI CERVICAL SPINE WO IVCON / PROCEDURE REASON: Spinal stenosis of cervical region * * * * Physician Interpretation * * * * EXAMINATION: MRI CERVICAL SPINE WO IVCON, MRI LUMBAR SPINE WO IVCON, MRI THORACIC SPINE WO IVCON CLINICAL HISTORY: Cervical, thoracic, and lumbar stenosis. Abnormal posture. TECHNIQUE: Routine cervical, thoracic, and lumbosacral spine MR protocol without gadolinium. MQ: [id number] COMPARISON: Images from prior outside CT abdomen/pelvis dated 02/01/2020 were referenced. RESULT: CERVICAL: Counting reference: Craniocervical junction. Anatomic Variants: None. Localizer images: No additional significant findings. Alignment: 2 mm grade 1 anterolisthesis of C2 on C3. Disc space narrowing at the mid and lower cervical levels. Craniocervical junction: Craniocervical junction is normal. Cord: The cervical spinal cord is within normal limits of signal intensity and morphology. Bone marrow signal/fracture: Mild endplate degenerative signal changes seen at some levels. No evidence of prior fracture. Cervical soft tissues: The paraspinal soft tissues are within normal limits. Canal and foramina: Disc/osteophyte complexes and facet and uncovertebral degenerative changes are seen throughout the cervical spine. At C2-C3 and C3-C4, canal and foramina are patent. At C4-C5, there is mild right foraminal narrowing. Canal and left neural foramen are patent. At C5-C6, there is moderate bilateral foraminal narrowing. Canal is patent. At C6-C7, there is moderate left and mild right foraminal narrowing. Canal is patent. At C7-T1, canal and foramina are patent. THORACIC: Counting reference: Craniocervical and lumbosacral junctions. For the purposes of this report, L4-5 is considered the level of the iliac crest and assume there are 5 lumbar-type vertebrae. Anatomic variant: None. Alignment: Alignment is anatomic. Cord: The thoracic spinal cord is within normal limits of signal intensity and morphology. Bone marrow signal/fracture: No evidence of pathologic marrow infiltration. No evidence of prior fracture. Thoracic soft tissues: The paraspinal soft tissues are within normal limits. Canal and foramina: Tiny disc protrusions measuring up to 2 mm seen at some thoracic levels. No significant canal or foraminal narrowing noted throughout the thoracic spine. LUMBAR: Counting reference: Craniocervical and lumbosacral junctions. For the purposes of this report, L4-5 is considered the level of the iliac crest and assume there are 5 lumbar-type vertebrae. Anatomic variant: None. Localizer images: Bilateral T2 hyperintense renal lesions are seen measuring up to 3.0 cm, likely cysts. Also, focal hypointensities corresponding to right-sided renal calculi on prior outside CT are seen. Alignment: Mild levoconvex scoliosis centered at L3 seen. Disc space narrowing seen at the mid lumbar levels. Trace 1 mm retrolistheses of L3 on L4 and L4 on L5 seen. Bone marrow signal/fracture: Endplate degenerative signal changes seen at some levels. No evidence of prior fracture. Conus: The conus is within normal limits of signal intensity and morphology. Paraspinal soft tissues: Paraspinal soft tissues are within normal limits. Canal and foramina: At L5-S1, there is a 3 mm central disc protrusion and mild facet degenerative change. Canal and foramina are patent. At L4-L5, there is mild bulging annulus and mild facet degenerative changes. Canal and foramina are patent. At L3-L4, there is a mild bulging annulus and mild facet degenerative change with mild canal stenosis and mild right inferior foraminal narrowing. Left neural foramen is patent. At L2-L3, there is a mild bulging annulus. Canal and foramina are patent. At L1-L2, there is a mild bulging annulus. Canal and foramina are patent. 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 Visualized sacrum and iliac wings are otherwise unremarkable. DIVISION OF RADIOLOGY Provider, [facility] - 10/07/2023 * * *Final Report* * * DATE OF EXAM: Oct 07 2023 11:41AM QBM [id number] - MRI CERVICAL SPINE WO IVCON / PROCEDURE REASON: Spinal stenosis of cervical region * * * * Physician Interpretation * * * * EXAMINATION: MRI CERVICAL SPINE WO IVCON, MRI LUMBAR SPINE WO IVCON, MRI THORACIC SPINE WO IVCON CLINICAL HISTORY: Cervical, thoracic, and lumbar stenosis. Abnormal posture. TECHNIQUE: Routine cervical, thoracic, and lumbosacral spine MR protocol without gadolinium. MQ: MRCTLWO_3 COMPARISON: Images from prior outside CT abdomen/pelvis dated 02/01/2020 were referenced. RESULT: CERVICAL: Counting reference: Craniocervical junction. Anatomic Variants: None. Localizer images: No additional significant findings. Alignment: 2 mm grade 1 anterolisthesis of C2 on C3. Disc space narrowing at the mid and lower cervical levels. Craniocervical junction: Craniocervical junction is normal. Cord: The cervical spinal cord is within normal limits of signal intensity and morphology. Bone marrow signal/fracture: Mild endplate degenerative signal changes seen at some levels. No evidence of prior fracture. Cervical soft tissues: The paraspinal soft tissues are within normal limits. Canal and foramina: Disc/osteophyte complexes and facet and uncovertebral degenerative changes are seen throughout the cervical spine. At C2-C3 and C3-C4, canal and foramina are patent. At C4-C5, there is mild right foraminal narrowing. Canal and left neural foramen are patent. At C5-C6, there is moderate bilateral foraminal narrowing. Canal is patent. At C6-C7, there is moderate left and mild right foraminal narrowing. Canal is patent. At C7-T1, canal and foramina are patent. THORACIC: Counting reference: Craniocervical and lumbosacral junctions. For the purposes of this report, L4-5 is considered the level of the iliac crest and assume there are 5 lumbar-type vertebrae. Anatomic variant: None. Alignment: Alignment is anatomic. Cord: The thoracic spinal cord is within normal limits of signal intensity and morphology. Bone marrow signal/fracture: No evidence of pathologic marrow infiltration. No evidence of prior fracture. Thoracic soft tissues: The paraspinal soft tissues are within normal limits. Canal and foramina: Tiny disc protrusions measuring up to 2 mm seen at some thoracic levels. No significant canal or foraminal narrowing noted throughout the thoracic spine. LUMBAR: Counting reference: Craniocervical and lumbosacral junctions. For the purposes of this report, L4-5 is considered the level of the iliac crest and assume there are 5 lumbar-type vertebrae. Anatomic variant: None. Localizer images: Bilateral T2 hyperintense renal lesions are seen measuring up to 3.0 cm, likely cysts. Also, focal hypointensities corresponding to right-sided renal calculi on prior outside CT are seen. Alignment: Mild levoconvex scoliosis centered at L3 seen. Disc space narrowing seen at the mid lumbar levels. Trace 1 mm retrolistheses of L3 on L4 and L4 on L5 seen. Bone marrow signal/fracture: Endplate degenerative signal changes seen at some levels. No evidence of prior fracture. Conus: The conus is within normal limits of signal intensity and morphology. Paraspinal soft tissues: Paraspinal soft tissues are within normal limits. Canal and foramina: At L5-S1, there is a 3 mm central disc protrusion and mild facet degenerative change. Canal and foramina are patent. At L4-L5, there is mild bulging annulus and mild facet degenerative changes. Canal and foramina are patent. At L3-L4, there is a mild bulging annulus and mild facet degenerative change with mild canal stenosis and mild right inferior foraminal narrowing. Left neural foramen is patent. At L2-L3, there is a mild bulging annulus. Canal and foramina are patent. At L1-L2, there is a mild bulging annulus. Canal and foramina are patent. 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 Visualized sacrum and iliac wings are otherwise unremarkable. IMPRESSION IMPRESSION: Degenerative changes at the cervical levels without significant canal stenosis. Foraminal narrowing of up to a moderate degree seen at some cervical levels (see level by level discussion above). Small disc protrusions at some thoracic levels. No significant canal or foraminal narrowing involving the thoracic spine. Degenerative changes at the lumbar levels with resulting mild canal stenosis and mild right foraminal narrowing at L3-L4. Mild levoconvex lumbar scoliosis. Bilateral T2 hyperintense renal lesions, likely cysts. Right-sided renal calculi again noted. Otherwise, unremarkable MRI examinations of the cervical, thoracic, and lumbar spine wi (more content not included)... [facility] MR Lumbar spine WO contrasto n 10-07-2023 * * *Final Report* * * DATE OF EXAM: Oct 07 2023 11:41AM QBM [id number] - MRI LUMBAR SPINE WO IVCON / PROCEDURE REASON: Spinal stenosis of lumbar region with neurogenic claudication * * * * Physician Interpretation * * * * EXAMINATION: MRI CERVICAL SPINE WO IVCON, MRI LUMBAR SPINE WO IVCON, MRI THORACIC SPINE WO IVCON CLINICAL HISTORY: Cervical, thoracic, and lumbar stenosis. Abnormal posture. TECHNIQUE: Routine cervical, thoracic, and lumbosacral spine MR protocol without gadolinium. MQ: MRCTLWO_3 COMPARISON: Images from prior outside CT abdomen/pelvis dated 02/01/2020 were referenced. RESULT: CERVICAL: Counting reference: Craniocervical junction. Anatomic Variants: None. Localizer images: No additional significant findings. Alignment: 2 mm grade 1 anterolisthesis of C2 on C3. Disc space narrowing at the mid and lower cervical levels. Craniocervical junction: Craniocervical junction is normal. Cord: The cervical spinal cord is within normal limits of signal intensity and morphology. Bone marrow signal/fracture: Mild endplate degenerative signal changes seen at some levels. No evidence of prior fracture. Cervical soft tissues: The paraspinal soft tissues are within normal limits. Canal and foramina: Disc/osteophyte complexes and facet and uncovertebral degenerative changes are seen throughout the cervical spine. At C2-C3 and C3-C4, canal and foramina are patent. At C4-C5, there is mild right foraminal narrowing. Canal and left neural foramen are patent. At C5-C6, there is moderate bilateral foraminal narrowing. Canal is patent. At C6-C7, there is moderate left and mild right foraminal narrowing. Canal is patent. At C7-T1, canal and foramina are patent. THORACIC: Counting reference: Craniocervical and lumbosacral junctions. For the purposes of this report, L4-5 is considered the level of the iliac crest and assume there are 5 lumbar-type vertebrae. Anatomic variant: None. Alignment: Alignment is anatomic. Cord: The thoracic spinal cord is within normal limits of signal intensity and morphology. Bone marrow signal/fracture: No evidence of pathologic marrow infiltration. No evidence of prior fracture. Thoracic soft tissues: The paraspinal soft tissues are within normal limits. Canal and foramina: Tiny disc protrusions measuring up to 2 mm seen at some thoracic levels. No significant canal or foraminal narrowing noted throughout the thoracic spine. LUMBAR: Counting reference: Craniocervical and lumbosacral junctions. For the purposes of this report, L4-5 is considered the level of the iliac crest and assume there are 5 lumbar-type vertebrae. Anatomic variant: None. Localizer images: Bilateral T2 hyperintense renal lesions are seen measuring up to 3.0 cm, likely cysts. Also, focal hypointensities corresponding to right-sided renal calculi on prior outside CT are seen. Alignment: Mild levoconvex scoliosis centered at L3 seen. Disc space narrowing seen at the mid lumbar levels. Trace 1 mm retrolistheses of L3 on L4 and L4 on L5 seen. Bone marrow signal/fracture: Endplate degenerative signal changes seen at some levels. No evidence of prior fracture. Conus: The conus is within normal limits of signal intensity and morphology. Paraspinal soft tissues: Paraspinal soft tissues are within normal limits. Canal and foramina: At L5-S1, there is a 3 mm central disc protrusion and mild facet degenerative change. Canal and foramina are patent. At L4-L5, there is mild bulging annulus and mild facet degenerative changes. Canal and foramina are patent. At L3-L4, there is a mild bulging annulus and mild facet degenerative change with mild canal stenosis and mild right inferior foraminal narrowing. Left neural foramen is patent. At L2-L3, there is a mild bulging annulus. Canal and foramina are patent. At L1-L2, there is a mild bulging annulus. Canal and foramina are patent. 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 Visualized sacrum and iliac wings are otherwise unremarkable. DIVISION OF RADIOLOGY Provider, [facility] - 10/07/2023 * * *Final Report* * * DATE OF EXAM: Oct 07 2023 11:41AM QBM 0303 - MRI LUMBAR SPINE WO IVCON / PROCEDURE REASON: Spinal stenosis of lumbar region with neurogenic claudication * * * * Physician Interpretation * * * * EXAMINATION: MRI CERVICAL SPINE WO IVCON, MRI LUMBAR SPINE WO IVCON, MRI THORACIC SPINE WO IVCON CLINICAL HISTORY: Cervical, thoracic, and lumbar stenosis. Abnormal posture. TECHNIQUE: Routine cervical, thoracic, and lumbosacral spine MR protocol without gadolinium. MQ: MRCTLWO_3 COMPARISON: Images from prior outside CT abdomen/pelvis dated 02/01/2020 were referenced. RESULT: CERVICAL: Counting reference: Craniocervical junction. Anatomic Variants: None. Localizer images: No additional significant findings. Alignment: 2 mm grade 1 anterolisthesis of C2 on C3. Disc space narrowing at the mid and lower cervical levels. Craniocervical junction: Craniocervical junction is normal. Cord: The cervical spinal cord is within normal limits of signal intensity and morphology. Bone marrow signal/fracture: Mild endplate degenerative signal changes seen at some levels. No evidence of prior fracture. Cervical soft tissues: The paraspinal soft tissues are within normal limits. Canal and foramina: Disc/osteophyte complexes and facet and uncovertebral degenerative changes are seen throughout the cervical spine. At C2-C3 and C3-C4, canal and foramina are patent. At C4-C5, there is mild right foraminal narrowing. Canal and left neural foramen are patent. At C5-C6, there is moderate bilateral foraminal narrowing. Canal is patent. At C6-C7, there is moderate left and mild right foraminal narrowing. Canal is patent. At C7-T1, canal and foramina are patent. THORACIC: Counting reference: Craniocervical and lumbosacral junctions. For the purposes of this report, L4-5 is considered the level of the iliac crest and assume there are 5 lumbar-type vertebrae. Anatomic variant: None. Alignment: Alignment is anatomic. Cord: The thoracic spinal cord is within normal limits of signal intensity and morphology. Bone marrow signal/fracture: No evidence of pathologic marrow infiltration. No evidence of prior fracture. Thoracic soft tissues: The paraspinal soft tissues are within normal limits. Canal and foramina: Tiny disc protrusions measuring up to 2 mm seen at some thoracic levels. No significant canal or foraminal narrowing noted throughout the thoracic spine. LUMBAR: Counting reference: Craniocervical and lumbosacral junctions. For the purposes of this report, L4-5 is considered the level of the iliac crest and assume there are 5 lumbar-type vertebrae. Anatomic variant: None. Localizer images: Bilateral T2 hyperintense renal lesions are seen measuring up to 3.0 cm, likely cysts. Also, focal hypointensities corresponding to right-sided renal calculi on prior outside CT are seen. Alignment: Mild levoconvex scoliosis centered at L3 seen. Disc space narrowing seen at the mid lumbar levels. Trace 1 mm retrolistheses of L3 on L4 and L4 on L5 seen. Bone marrow signal/fracture: Endplate degenerative signal changes seen at some levels. No evidence of prior fracture. Conus: The conus is within normal limits of signal intensity and morphology. Paraspinal soft tissues: Paraspinal soft tissues are within normal limits. Canal and foramina: At L5-S1, there is a 3 mm central disc protrusion and mild facet degenerative change. Canal and foramina are patent. At L4-L5, there is mild bulging annulus and mild facet degenerative changes. Canal and foramina are patent. At L3-L4, there is a mild bulging annulus and mild facet degenerative change with mild canal stenosis and mild right inferior foraminal narrowing. Left neural foramen is patent. At L2-L3, there is a mild bulging annulus. Canal and foramina are patent. At L1-L2, there is a mild bulging annulus. Canal and foramina are patent. 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 Visualized sacrum and iliac wings are otherwise unremarkable. IMPRESSION IMPRESSION: Degenerative changes at the cervical levels without significant canal stenosis. Foraminal narrowing of up to a moderate degree seen at some cervical levels (see level by level discussion above). Small disc protrusions at some thoracic levels. No significant canal or foraminal narrowing involving the thoracic spine. Degenerative changes at the lumbar levels with resulting mild canal stenosis and mild right foraminal narrowing at L3-L4. Mild levoconvex lumbar scoliosis. Bilateral T2 hyperintense renal lesions, likely cysts. Right-sided renal calculi again noted. Otherwise, unremarkable MRI examinations of the cervical, thor (more content not included)... [facility] Radiology Study observation (narrative) [facility] MR Thoracic spine WO contras ton 10-07-2023 * * *Final Report* * * DATE OF EXAM: Oct 07 2023 11:41AM QBM 0325 - MRI THORACIC SPINE WO IVCON / PROCEDURE REASON: Abnormal posture * * * * Physician Interpretation * * * * EXAMINATION: MRI CERVICAL SPINE WO IVCON, MRI LUMBAR SPINE WO IVCON, MRI THORACIC SPINE WO IVCON CLINICAL HISTORY: Cervical, thoracic, and lumbar stenosis. Abnormal posture. TECHNIQUE: Routine cervical, thoracic, and lumbosacral spine MR protocol without gadolinium. MQ: MRCTLWO_3 COMPARISON: Images from prior outside CT abdomen/pelvis dated 02/01/2020 were referenced. RESULT: CERVICAL: Counting reference: Craniocervical junction. Anatomic Variants: None. Localizer images: No additional significant findings. Alignment: 2 mm grade 1 anterolisthesis of C2 on C3. Disc space narrowing at the mid and lower cervical levels. Craniocervical junction: Craniocervical junction is normal. Cord: The cervical spinal cord is within normal limits of signal intensity and morphology. Bone marrow signal/fracture: Mild endplate degenerative signal changes seen at some levels. No evidence of prior fracture. Cervical soft tissues: The paraspinal soft tissues are within normal limits. Canal and foramina: Disc/osteophyte complexes and facet and uncovertebral degenerative changes are seen throughout the cervical spine. At C2-C3 and C3-C4, canal and foramina are patent. At C4-C5, there is mild right foraminal narrowing. Canal and left neural foramen are patent. At C5-C6, there is moderate bilateral foraminal narrowing. Canal is patent. At C6-C7, there is moderate left and mild right foraminal narrowing. Canal is patent. At C7-T1, canal and foramina are patent. THORACIC: Counting reference: Craniocervical and lumbosacral junctions. For the purposes of this report, L4-5 is considered the level of the iliac crest and assume there are 5 lumbar-type vertebrae. Anatomic variant: None. Alignment: Alignment is anatomic. Cord: The thoracic spinal cord is within normal limits of signal intensity and morphology. Bone marrow signal/fracture: No evidence of pathologic marrow infiltration. No evidence of prior fracture. Thoracic soft tissues: The paraspinal soft tissues are within normal limits. Canal and foramina: Tiny disc protrusions measuring up to 2 mm seen at some thoracic levels. No significant canal or foraminal narrowing noted throughout the thoracic spine. LUMBAR: Counting reference: Craniocervical and lumbosacral junctions. For the purposes of this report, L4-5 is considered the level of the iliac crest and assume there are 5 lumbar-type vertebrae. Anatomic variant: None. Localizer images: Bilateral T2 hyperintense renal lesions are seen measuring up to 3.0 cm, likely cysts. Also, focal hypointensities corresponding to right-sided renal calculi on prior outside CT are seen. Alignment: Mild levoconvex scoliosis centered at L3 seen. Disc space narrowing seen at the mid lumbar levels. Trace 1 mm retrolistheses of L3 on L4 and L4 on L5 seen. Bone marrow signal/fracture: Endplate degenerative signal changes seen at some levels. No evidence of prior fracture. Conus: The conus is within normal limits of signal intensity and morphology. Paraspinal soft tissues: Paraspinal soft tissues are within normal limits. Canal and foramina: At L5-S1, there is a 3 mm central disc protrusion and mild facet degenerative change. Canal and foramina are patent. At L4-L5, there is mild bulging annulus and mild facet degenerative changes. Canal and foramina are patent. At L3-L4, there is a mild bulging annulus and mild facet degenerative change with mild canal stenosis and mild right inferior foraminal narrowing. Left neural foramen is patent. At L2-L3, there is a mild bulging annulus. Canal and foramina are patent. At L1-L2, there is a mild bulging annulus. Canal and foramina are patent. 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 Visualized sacrum and iliac wings are otherwise unremarkable. DIVISION OF RADIOLOGY Provider, [facility] - 10/07/2023 * * *Final Report* * * DATE OF EXAM: Oct 07 2023 11:41AM QBM 0325 - MRI THORACIC SPINE WO IVCON / PROCEDURE REASON: Abnormal posture * * * * Physician Interpretation * * * * EXAMINATION: MRI CERVICAL SPINE WO IVCON, MRI LUMBAR SPINE WO IVCON, MRI THORACIC SPINE WO IVCON CLINICAL HISTORY: Cervical, thoracic, and lumbar stenosis. Abnormal posture. TECHNIQUE: Routine cervical, thoracic, and lumbosacral spine MR protocol without gadolinium. MQ: MRCTLWO_3 COMPARISON: Images from prior outside CT abdomen/pelvis dated 02/01/2020 were referenced. RESULT: CERVICAL: Counting reference: Craniocervical junction. Anatomic Variants: None. Localizer images: No additional significant findings. Alignment: 2 mm grade 1 anterolisthesis of C2 on C3. Disc space narrowing at the mid and lower cervical levels. Craniocervical junction: Craniocervical junction is normal. Cord: The cervical spinal cord is within normal limits of signal intensity and morphology. Bone marrow signal/fracture: Mild endplate degenerative signal changes seen at some levels. No evidence of prior fracture. Cervical soft tissues: The paraspinal soft tissues are within normal limits. Canal and foramina: Disc/osteophyte complexes and facet and uncovertebral degenerative changes are seen throughout the cervical spine. At C2-C3 and C3-C4, canal and foramina are patent. At C4-C5, there is mild right foraminal narrowing. Canal and left neural foramen are patent. At C5-C6, there is moderate bilateral foraminal narrowing. Canal is patent. At C6-C7, there is moderate left and mild right foraminal narrowing. Canal is patent. At C7-T1, canal and foramina are patent. THORACIC: Counting reference: Craniocervical and lumbosacral junctions. For the purposes of this report, L4-5 is considered the level of the iliac crest and assume there are 5 lumbar-type vertebrae. Anatomic variant: None. Alignment: Alignment is anatomic. Cord: The thoracic spinal cord is within normal limits of signal intensity and morphology. Bone marrow signal/fracture: No evidence of pathologic marrow infiltration. No evidence of prior fracture. Thoracic soft tissues: The paraspinal soft tissues are within normal limits. Canal and foramina: Tiny disc protrusions measuring up to 2 mm seen at some thoracic levels. No significant canal or foraminal narrowing noted throughout the thoracic spine. LUMBAR: Counting reference: Craniocervical and lumbosacral junctions. For the purposes of this report, L4-5 is considered the level of the iliac crest and assume there are 5 lumbar-type vertebrae. Anatomic variant: None. Localizer images: Bilateral T2 hyperintense renal lesions are seen measuring up to 3.0 cm, likely cysts. Also, focal hypointensities corresponding to right-sided renal calculi on prior outside CT are seen. Alignment: Mild levoconvex scoliosis centered at L3 seen. Disc space narrowing seen at the mid lumbar levels. Trace 1 mm retrolistheses of L3 on L4 and L4 on L5 seen. Bone marrow signal/fracture: Endplate degenerative signal changes seen at some levels. No evidence of prior fracture. Conus: The conus is within normal limits of signal intensity and morphology. Paraspinal soft tissues: Paraspinal soft tissues are within normal limits. Canal and foramina: At L5-S1, there is a 3 mm central disc protrusion and mild facet degenerative change. Canal and foramina are patent. At L4-L5, there is mild bulging annulus and mild facet degenerative changes. Canal and foramina are patent. At L3-L4, there is a mild bulging annulus and mild facet degenerative change with mild canal stenosis and mild right inferior foraminal narrowing. Left neural foramen is patent. At L2-L3, there is a mild bulging annulus. Canal and foramina are patent. At L1-L2, there is a mild bulging annulus. Canal and foramina are patent. 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 Visualized sacrum and iliac wings are otherwise unremarkable. IMPRESSION IMPRESSION: Degenerative changes at the cervical levels without significant canal stenosis. Foraminal narrowing of up to a moderate degree seen at some cervical levels (see level by level discussion above). Small disc protrusions at some thoracic levels. No significant canal or foraminal narrowing involving the thoracic spine. Degenerative changes at the lumbar levels with resulting mild canal stenosis and mild right foraminal narrowing at L3-L4. Mild levoconvex lumbar scoliosis. Bilateral T2 hyperintense renal lesions, likely cysts. Right-sided renal calculi again noted. Otherwise, unremarkable MRI examinations of the cervical, thoracic, and lumbar spine without contrast. (more content not included)... [facility] MRI CERVICAL SPINE WO IVCONo n 10-07-2023 MRI CERVICAL SPINE WO IVCON * * *Final Report* * * DATE OF EXAM: Oct 07 2023 11:41AM QBM [id number] - MRI CERVICAL SPINE WO IVCON / PROCEDURE REASON: Spinal stenosis of cervical region * * * * Physician Interpretation * * * * EXAMINATION: MRI CERVICAL SPINE WO IVCON, MRI LUMBAR SPINE WO IVCON, MRI THORACIC SPINE WO IVCON CLINICAL HISTORY: Cervical, thoracic, and lumbar stenosis. Abnormal posture. TECHNIQUE: Routine cervical, thoracic, and lumbosacral spine MR protocol without gadolinium. MQ: [id number]_3 COMPARISON: Images from prior outside CT abdomen/pelvis dated 02/01/2020 were referenced. RESULT: CERVICAL: Counting reference: Craniocervical junction. Anatomic Variants: None. Localizer images: No additional significant findings. Alignment: 2 mm grade 1 anterolisthesis of C2 on C3. Disc space narrowing at the mid and lower cervical levels. Craniocervical junction: Craniocervical junction is normal. Cord: The cervical spinal cord is within normal limits of signal intensity and morphology. Bone marrow signal/fracture: Mild endplate degenerative signal changes seen at some levels. No evidence of prior fracture. Cervical soft tissues: The paraspinal soft tissues are within normal limits. Canal and foramina: Disc/osteophyte complexes and facet and uncovertebral degenerative changes are seen throughout the cervical spine. At C2-C3 and C3-C4, canal and foramina are patent. At C4-C5, there is mild right foraminal narrowing. Canal and left neural foramen are patent. At C5-C6, there is moderate bilateral foraminal narrowing. Canal is patent. At C6-C7, there is moderate left and mild right foraminal narrowing. Canal is patent. At C7-T1, canal and foramina are patent. THORACIC: Counting reference: Craniocervical and lumbosacral junctions. For the purposes of this report, L4-5 is considered the level of the iliac crest and assume there are 5 lumbar-type vertebrae. Anatomic variant: None. Alignment: Alignment is anatomic. Cord: The thoracic spinal cord is within normal limits of signal intensity and morphology. Bone marrow signal/fracture: No evidence of pathologic marrow infiltration. No evidence of prior fracture. Thoracic soft tissues: The paraspinal soft tissues are within normal limits. Canal and foramina: Tiny disc protrusions measuring up to 2 mm seen at some thoracic levels. No significant canal or foraminal narrowing noted throughout the thoracic spine. LUMBAR: Counting reference: Craniocervical and lumbosacral junctions. For the purposes of this report, L4-5 is considered the level of the iliac crest and assume there are 5 lumbar-type vertebrae. Anatomic variant: None. Localizer images: Bilateral T2 hyperintense renal lesions are seen measuring up to 3.0 cm, likely cysts. Also, focal hypointensities corresponding to right-sided renal calculi on prior outside CT are seen. Alignment: Mild levoconvex scoliosis centered at L3 seen. Disc space narrowing seen at the mid lumbar levels. Trace 1 mm retrolistheses of L3 on L4 and L4 on L5 seen. Bone marrow signal/fracture: Endplate degenerative signal changes seen at some levels. No evidence of prior fracture. Conus: The conus is within normal limits of signal intensity and morphology. Paraspinal soft tissues: Paraspinal soft tissues are within normal limits. Canal and foramina: At L5-S1, there is a 3 mm central disc protrusion and mild facet degenerative change. Canal and foramina are patent. At L4-L5, there is mild bulging annulus and mild facet degenerative changes. Canal and foramina are patent. At L3-L4, there is a mild bulging annulus and mild facet degenerative change with mild canal stenosis and mild right inferior foraminal narrowing. Left neural foramen is patent. At L2-L3, there is a mild bulging annulus. Canal and foramina are patent. At L1-L2, there is a mild bulging annulus. Canal and foramina are patent. 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 Visualized sacrum and iliac wings are otherwise unremarkable. IMPRESSION: Degenerative changes at the cervical levels without significant canal stenosis. Foraminal narrowing of up to a moderate degree seen at some cervical levels (see level by level discussion above). Small disc protrusions at some thoracic levels. No significant canal or foraminal narrowing involving the thoracic spine. Degenerative changes at the lumbar levels with resulting mild canal stenosis and mild right foraminal narrowing at L3-L4. Mild levoconvex lumbar scoliosis. Bilateral T2 hyperintense renal lesions, likely cysts. Right-sided renal calculi again noted. Otherwise, unremarkable MRI examinations of the cervical, thoracic, and lumbar spine without contrast. Cervical Anatomic Variant: None. Assume 7 cervical vertebrae with counting from the craniocervical junction. Anatomic Thoracic/Lumbar Variant: None. L4-5 i (more content not included)... Normal [facility] MRI LUMBAR SPINE WO IVCONon 10-07-2023 MRI LUMBAR SPINE WO IVCON * * *Final Report* * * DATE OF EXAM: Oct 07 2023 11:41AM QBM [id number] - MRI LUMBAR SPINE WO IVCON / PROCEDURE REASON: Spinal stenosis of lumbar region with neurogenic claudication * * * * Physician Interpretation * * * * EXAMINATION: MRI CERVICAL SPINE WO IVCON, MRI LUMBAR SPINE WO IVCON, MRI THORACIC SPINE WO IVCON CLINICAL HISTORY: Cervical, thoracic, and lumbar stenosis. Abnormal posture. TECHNIQUE: Routine cervical, thoracic, and lumbosacral spine MR protocol without gadolinium. MQ: MRCTLWO_3 COMPARISON: Images from prior outside CT abdomen/pelvis dated 02/01/2020 were referenced. RESULT: CERVICAL: Counting reference: Craniocervical junction. Anatomic Variants: None. Localizer images: No additional significant findings. Alignment: 2 mm grade 1 anterolisthesis of C2 on C3. Disc space narrowing at the mid and lower cervical levels. Craniocervical junction: Craniocervical junction is normal. Cord: The cervical spinal cord is within normal limits of signal intensity and morphology. Bone marrow signal/fracture: Mild endplate degenerative signal changes seen at some levels. No evidence of prior fracture. Cervical soft tissues: The paraspinal soft tissues are within normal limits. Canal and foramina: Disc/osteophyte complexes and facet and uncovertebral degenerative changes are seen throughout the cervical spine. At C2-C3 and C3-C4, canal and foramina are patent. At C4-C5, there is mild right foraminal narrowing. Canal and left neural foramen are patent. At C5-C6, there is moderate bilateral foraminal narrowing. Canal is patent. At C6-C7, there is moderate left and mild right foraminal narrowing. Canal is patent. At C7-T1, canal and foramina are patent. THORACIC: Counting reference: Craniocervical and lumbosacral junctions. For the purposes of this report, L4-5 is considered the level of the iliac crest and assume there are 5 lumbar-type vertebrae. Anatomic variant: None. Alignment: Alignment is anatomic. Cord: The thoracic spinal cord is within normal limits of signal intensity and morphology. Bone marrow signal/fracture: No evidence of pathologic marrow infiltration. No evidence of prior fracture. Thoracic soft tissues: The paraspinal soft tissues are within normal limits. Canal and foramina: Tiny disc protrusions measuring up to 2 mm seen at some thoracic levels. No significant canal or foraminal narrowing noted throughout the thoracic spine. LUMBAR: Counting reference: Craniocervical and lumbosacral junctions. For the purposes of this report, L4-5 is considered the level of the iliac crest and assume there are 5 lumbar-type vertebrae. Anatomic variant: None. Localizer images: Bilateral T2 hyperintense renal lesions are seen measuring up to 3.0 cm, likely cysts. Also, focal hypointensities corresponding to right-sided renal calculi on prior outside CT are seen. Alignment: Mild levoconvex scoliosis centered at L3 seen. Disc space narrowing seen at the mid lumbar levels. Trace 1 mm retrolistheses of L3 on L4 and L4 on L5 seen. Bone marrow signal/fracture: Endplate degenerative signal changes seen at some levels. No evidence of prior fracture. Conus: The conus is within normal limits of signal intensity and morphology. Paraspinal soft tissues: Paraspinal soft tissues are within normal limits. Canal and foramina: At L5-S1, there is a 3 mm central disc protrusion and mild facet degenerative change. Canal and foramina are patent. At L4-L5, there is mild bulging annulus and mild facet degenerative changes. Canal and foramina are patent. At L3-L4, there is a mild bulging annulus and mild facet degenerative change with mild canal stenosis and mild right inferior foraminal narrowing. Left neural foramen is patent. At L2-L3, there is a mild bulging annulus. Canal and foramina are patent. At L1-L2, there is a mild bulging annulus. Canal and foramina are patent. 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 Visualized sacrum and iliac wings are otherwise unremarkable. IMPRESSION: Degenerative changes at the cervical levels without significant canal stenosis. Foraminal narrowing of up to a moderate degree seen at some cervical levels (see level by level discussion above). Small disc protrusions at some thoracic levels. No significant canal or foraminal narrowing involving the thoracic spine. Degenerative changes at the lumbar levels with resulting mild canal stenosis and mild right foraminal narrowing at L3-L4. Mild levoconvex lumbar scoliosis. Bilateral T2 hyperintense renal lesions, likely cysts. Right-sided renal calculi again noted. Otherwise, unremarkable MRI examinations of the cervical, thoracic, and lumbar spine without contrast. Cervical Anatomic Variant: None. Assume 7 cervical vertebrae with counting from the craniocervical junction. Anatomic Thoracic/L (more content not included)... Normal [facility] MRI THORACIC SPINE WO IVCONo n 10-07-2023 MRI THORACIC SPINE WO IVCON * * *Final Report* * * DATE OF EXAM: Oct 07 2023 11:41AM QBM [id number] - MRI THORACIC SPINE WO IVCON / PROCEDURE REASON: Abnormal posture * * * * Physician Interpretation * * * * EXAMINATION: MRI CERVICAL SPINE WO IVCON, MRI LUMBAR SPINE WO IVCON, MRI THORACIC SPINE WO IVCON CLINICAL HISTORY: Cervical, thoracic, and lumbar stenosis. Abnormal posture. TECHNIQUE: Routine cervical, thoracic, and lumbosacral spine MR protocol without gadolinium. MQ: MRCTLWO_3 COMPARISON: Images from prior outside CT abdomen/pelvis dated 02/01/2020 were referenced. RESULT: CERVICAL: Counting reference: Craniocervical junction. Anatomic Variants: None. Localizer images: No additional significant findings. Alignment: 2 mm grade 1 anterolisthesis of C2 on C3. Disc space narrowing at the mid and lower cervical levels. Craniocervical junction: Craniocervical junction is normal. Cord: The cervical spinal cord is within normal limits of signal intensity and morphology. Bone marrow signal/fracture: Mild endplate degenerative signal changes seen at some levels. No evidence of prior fracture. Cervical soft tissues: The paraspinal soft tissues are within normal limits. Canal and foramina: Disc/osteophyte complexes and facet and uncovertebral degenerative changes are seen throughout the cervical spine. At C2-C3 and C3-C4, canal and foramina are patent. At C4-C5, there is mild right foraminal narrowing. Canal and left neural foramen are patent. At C5-C6, there is moderate bilateral foraminal narrowing. Canal is patent. At C6-C7, there is moderate left and mild right foraminal narrowing. Canal is patent. At C7-T1, canal and foramina are patent. THORACIC: Counting reference: Craniocervical and lumbosacral junctions. For the purposes of this report, L4-5 is considered the level of the iliac crest and assume there are 5 lumbar-type vertebrae. Anatomic variant: None. Alignment: Alignment is anatomic. Cord: The thoracic spinal cord is within normal limits of signal intensity and morphology. Bone marrow signal/fracture: No evidence of pathologic marrow infiltration. No evidence of prior fracture. Thoracic soft tissues: The paraspinal soft tissues are within normal limits. Canal and foramina: Tiny disc protrusions measuring up to 2 mm seen at some thoracic levels. No significant canal or foraminal narrowing noted throughout the thoracic spine. LUMBAR: Counting reference: Craniocervical and lumbosacral junctions. For the purposes of this report, L4-5 is considered the level of the iliac crest and assume there are 5 lumbar-type vertebrae. Anatomic variant: None. Localizer images: Bilateral T2 hyperintense renal lesions are seen measuring up to 3.0 cm, likely cysts. Also, focal hypointensities corresponding to right-sided renal calculi on prior outside CT are seen. Alignment: Mild levoconvex scoliosis centered at L3 seen. Disc space narrowing seen at the mid lumbar levels. Trace 1 mm retrolistheses of L3 on L4 and L4 on L5 seen. Bone marrow signal/fracture: Endplate degenerative signal changes seen at some levels. No evidence of prior fracture. Conus: The conus is within normal limits of signal intensity and morphology. Paraspinal soft tissues: Paraspinal soft tissues are within normal limits. Canal and foramina: At L5-S1, there is a 3 mm central disc protrusion and mild facet degenerative change. Canal and foramina are patent. At L4-L5, there is mild bulging annulus and mild facet degenerative changes. Canal and foramina are patent. At L3-L4, there is a mild bulging annulus and mild facet degenerative change with mild canal stenosis and mild right inferior foraminal narrowing. Left neural foramen is patent. At L2-L3, there is a mild bulging annulus. Canal and foramina are patent. At L1-L2, there is a mild bulging annulus. Canal and foramina are patent. 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 Visualized sacrum and iliac wings are otherwise unremarkable. IMPRESSION: Degenerative changes at the cervical levels without significant canal stenosis. Foraminal narrowing of up to a moderate degree seen at some cervical levels (see level by level discussion above). Small disc protrusions at some thoracic levels. No significant canal or foraminal narrowing involving the thoracic spine. Degenerative changes at the lumbar levels with resulting mild canal stenosis and mild right foraminal narrowing at L3-L4. Mild levoconvex lumbar scoliosis. Bilateral T2 hyperintense renal lesions, likely cysts. Right-sided renal calculi again noted. Otherwise, unremarkable MRI examinations of the cervical, thoracic, and lumbar spine without contrast. Cervical Anatomic Variant: None. Assume 7 cervical vertebrae with counting from the craniocervical junction. Anatomic Thoracic/Lumbar Variant: None. L4-5 is considered the l (more content not included)... Normal [facility] No Panel Informationon 10-06 IMPRESSION: Degenerative changes at the cervical levels without significant canal stenosis. Foraminal narrowing of up to a moderate degree seen at some cervical levels (see level by level discussion above). Small disc protrusions at some thoracic levels. No significant canal or foraminal narrowing involving the thoracic spine. Degenerative changes at the lumbar levels with resulting mild canal stenosis and mild right foraminal narrowing at L3-L4. Mild levoconvex lumbar scoliosis. Bilateral T2 hyperintense renal lesions, likely cysts. Right-sided renal calculi again noted. Otherwise, unremarkable MRI examinations of the cervical, thoracic, and lumbar spine without contrast. Cervical Anatomic Variant: None. Assume 7 cervical vertebrae with counting from the craniocervical junction. Anatomic Thoracic/Lumbar Variant: None. L4-5 is considered the level of the iliac crest and assume there are 5 lumbar-type vertebrae. Fisher Mussel: PSCB Transcribe Date/Time: Oct 07 2023 12:07P Dictated by : YANETH SALDAÑA MD This examination was interpreted and the report reviewed and electronically signed by: YANETH SALDAÑA MD on Oct 07 2023 12:21PM [facility] DIVISION OF RADIOLOGY Radiology Study observation (narrative) [facility] No Panel InformationOrdered By: Ccf Provider on 10-07-2023 [facility] Office Visiton 09-26-2023 Follow-up visit [id number] Donato Khan Susan 1945 F Date Provider Department Center 09/26/2023 Corazon-VERENA SHEEHAN [facility] SURG Second Fl Family History Problem Relation Age of Onset Stroke Mother Stroke Brother Other Mother's Sister Coronary artery disease Mother's Sister Stroke Maternal Grandmother Family Status - Relation Status Age at Mother Brother Mother's Sister Maternal Grandmother Level of Service:48943 [facility] POSTOP FOLLOW UP VISIT RELATED TO ORIGINAL PX Reason for Visit and Comments: Post-op [483] - Judith is here today for a post op visit for an incisional hernia, s/p 09/17/23 DaVinci incisional hernia repair. Normal [facility] 30on 09-18-2023 30 The patient is Moder ately Stable - Low risk of patient condition declining or worsening The patient's goals for the shift include Comfort The clinical goals for the shift include VSS, safety Problem: Pain - Adult Goal: Verbalizes/displays adequate comfort level or baseline comfort level Outcome: Progressing Flowsheets (Taken 09/18/2023 0720) Verbalizes/displays adequate comfort level or baseline comfort level: Encourage patient to monitor pain and request assistance Problem: Safety - Adult Goal: Free from fall injury Outcome: Progressing Normal [facility] BASIC METABOLIC PANELon 04-0 Anion gap [Moles/Vol] 11 mmol/L Normal 7-20 [facility] Comment on above: Performed By: #### L [id number] #### [facility] [address] [place] [address] Calcium [Mass/Vol] 9.0 mg/dL Normal 8.6-10.3 [facility] Comment on above: Performed By: #### L [id number] #### [facility] [address] [place] [address] Chloride [Moles/Vol] 107 mmol/L Normal 98-107 [facility] Comment on above: Performed By: #### L [id number] #### [facility] [address] [place] [address] CO2 [Moles/Vol] 25 mmol/L Normal 21-31 [facility] Comment on above: Performed By: #### L [id number] #### [facility] ([facility]) [address] [place] [address] Creatinine [Mass/Vol] 0.93 mg/dL Normal 0.60-1.20 [facility] Comment on above: Performed By: #### L [id number] #### [facility] ([facility]) [address] [place] [address] GLOMERULAR FILTRATION RATE ML/MIN/1.73 SQ M.PREDICTED 63.3 mL/min/1.73m*2 Normal >60.0 [facility] Comment on above: Result Comment: The [facility]???s estimated glomerular filtration rate (eGFR) will no longer include consideration of race in its calculation. The National Kid[employer] Foundation???s eGFR Task Force developed new recommendations for the estimation of the glomerular filtration rate in the [place] They recommend immediate implementation of the new equation refit without the race variable in all laboratories because the calculation does not include race. In addition to not including race in the calculation and reporting, it included diversity in its development, and has acceptable performance characteristics and potential consequences that do not disproportionately affect any one group of individuals. Performed By: #### L [id number] #### [facility] ([facility]) [address] [place] [address] Glucose [Mass/Vol] 112 mg/dL High 70-100 [facility] Comment on above: Performed By: #### L [id number] #### [facility] ([facility]) [address] [place] [address] Potassium [Moles/Vol] 4.5 mmol/L Normal 3.5-5.1 [facility] Comment on above: Performed By: #### L [id number] #### [facility] ([facility]) [address] [place] [address] Sodium [Moles/Vol] 138 mmol/L Normal 136-145 [facility] Comment on above: Performed By: #### L [id number] #### [facility] [address] [place] [address] Urea nitrogen [Mass/Vol] 21 mg/dL Normal 7-25 [facility] Comment on above: Performed By: #### L [id number] #### [facility] [address] [place] [address] UREA NITROGEN/CREATININE (MASS RATIO) IN SER/PLAS 22.6 Normal [facility] Comment on above: Performed By: #### L [id number] #### [facility] [address] [place] [address] Anion gap [Moles/Vol] 10 mmol/L Normal 7-20 [facility] Comment on above: Performed By: #### L [id number] #### [facility]) [address] [place] [address] Calcium [Mass/Vol] 9.1 mg/dL Normal 8.6-10.3 [facility] Comment on above: Performed By: #### L [id number] #### [facility]) [address] [place] [address] Chloride [Moles/Vol] 106 mmol/L Normal 98-107 [facility] Comment on above: Performed By: #### L [id number] #### [facility] [address] [place] [address] CO2 [Moles/Vol] 26 mmol/L Normal 21-31 [facility] Comment on above: Performed By: #### L [id number] #### [facility] [address] [place] [address] Creatinine [Mass/Vol] 0.96 mg/dL Normal 0.60-1.20 [facility] Comment on above: Performed By: #### L [id number] #### [facility] [address] [place] [address] GLOMERULAR FILTRATION RATE ML/MIN/1.73 SQ M.PREDICTED 60.9 mL/min/1.73m*2 Normal >60.0 [facility] Comment on above: Result Comment: The [facility]???s estimated glomerular filtration rate (eGFR) will no longer include consideration of race in its calculation. The National Kidney Foundation???s eGFR Task Force developed new recommendations for the estimation of the glomerular filtration rate in the [place] They recommend immediate implementation of the new equation refit without the race variable in all laboratories because the calculation does not include race. In addition to not including race in the calculation and reporting, it included diversity in its development, and has acceptable performance characteristics and potential consequences that do not disproportionately affect any one group of individuals. Performed By: #### L [id number] #### [facility] ([facility]) [address] [place] [address] Glucose [Mass/Vol] 126 mg/dL High 70-100 [facility] Comment on above: Performed By: #### L [id number] #### [facility] ([facility]) [address] [place] [address] Potassium [Moles/Vol] 4.2 mmol/L Normal 3.5-5.1 [facility] Comment on above: Performed By: #### L [id number] #### [facility] ([facility]) [address] [place] [address] Sodium [Moles/Vol] 138 mmol/L Normal 136-145 [facility] Comment on above: Performed By: #### L [id number] #### [facility] ([facility]) [address] [place] [address] Urea nitrogen [Mass/Vol] 22 mg/dL Normal 7-25 [facility] Comment on above: Performed By: #### L [id number] #### [facility] ([facility]) [address] [place] [address] UREA NITROGEN/CREATININE (MASS RATIO) IN SER/PLAS 22.9 Normal [facility] Comment on above: Performed By: #### L [id number] #### [facility] ([facility]) [address] [place] [address] CBCon 09-18-2023 Erythrocyte distribution width (RBC) [Ratio] 14.5 % Normal 11.5-15.0 [facility] Comment on above: Performed By: #### L [id number] #### [facility] [address] [place] [address] ERYTHROCYTE MEAN CORPUSCULAR HEMOGLOBIN CONCENTRATION (G/DL) BY AUTOMATED 32.1 g/dL Normal 32.0-35.0 [facility] Comment on above: Performed By: #### L [id number] #### [facility]) [address] [place] [address] Hematocrit (Bld) [Volume fraction] 40.5 % Normal 36.0-48.0 [facility] Comment on above: Performed By: #### L [id number] #### [facility] ([facility]) [address] [place] [address] Hemoglobin (Bld) [Mass/Vol] 13.0 g/dL Normal 12.0-15.0 [facility] Comment on above: Performed By: #### L [id number] #### [facility] ([facility]) [address] [place] [address] MCH (RBC) [Entitic mass] 30.8 pg Normal 27.0-33.0 [facility] Comment on above: Performed By: #### L [id number] #### [facility] ([facility]) [address] [place] [address] MCV (RBC) [Entitic vol] 96.0 fL Normal 82.0-98.0 [facility] Comment on above: Performed By: #### L [id number] #### [facility] ([facility]) [address] [place] [address] PLATELETS (10*3/UL) IN BLOOD AUTOMATED COUNT 309 10*3/uL Normal 150-400 [facility] Comment on above: Performed By: #### L [id number] #### [facility] ([facility]) [address] [place] [address] RBC (Bld) [#/Vol] 4.22 10*6/uL Normal 3.80-5.00 [facility] Comment on above: Performed By: #### L [id number] #### [facility]) [address] [place] [address] WBC (Bld) [#/Vol] 6.97 10*3/uL Normal 4.00-10.60 [facility] Comment on above: Performed By: #### L [id number] #### [facility] ([facility]) [address] [place] [address] CBC WITH AUTO DIFFERENTIALon 09-18-2023 Erythrocyte distribution width (RBC) [Ratio] 14.4 % Normal 11.5-15.0 [facility] Comment on above: Performed By: #### L [id number] #### [facility] ([facility]) [address] [place] [address] ERYTHROCYTE MEAN CORPUSCULAR HEMOGLOBIN CONCENTRATION (G/DL) BY AUTOMATED 33.0 g/dL Normal 32.0-35.0 [facility] Comment on above: Performed By: #### L [id number] #### [facility] ([facility]) [address] [place] [address] Hematocrit (Bld) [Volume fraction] 39.7 % Normal 36.0-48.0 [facility] Comment on above: Performed By: #### L [id number] #### [facility] ([facility]) [address] [place] [address] Hemoglobin (Bld) [Mass/Vol] 13.1 g/dL Normal 12.0-15.0 [facility] Comment on above: Performed By: #### L [id number] #### [facility] ([facility]) [address] [place] [address] MCH (RBC) [Entitic mass] 31.3 pg Normal 27.0-33.0 [facility] Comment on above: Performed By: #### L [id number] #### [facility] ([facility]) [address] [place] [address] MCV (RBC) [Entitic vol] 95.0 fL Normal 82.0-98.0 [facility] Comment on above: Performed By: #### L [id number] #### [facility] ([facility]) [address] [place] [address] NRBC (PER 100 WBCS) BY AUTOMATED COUNT 0.0 % Normal 0 [facility] Comment on above: Performed By: #### L [id number] #### [facility] ([facility]) [address] [place] [address] PLATELETS (10*3/UL) IN BLOOD AUTOMATED COUNT 301 10*3/uL Normal 150-400 [facility] Comment on above: Performed By: #### L [id number] #### [facility] ([facility]) [address] [place] [address] RBC (Bld) [#/Vol] 4.18 10*6/uL Normal 3.80-5.00 [facility] Comment on above: Performed By: #### L [id number] #### [facility] ([facility]) [address] [place] [address] WBC (Bld) [#/Vol] 6.49 10*3/uL Normal 4.00-10.60 [facility] Comment on above: Performed By: #### L [id number] #### [facility] ([facility]) [address] [place] [address] MAGNESIUMon 09-18-2023 Magnesium [Mass/Vol] 1.8 mg/dL Low 1.9-2.7 [facility] Comment on above: Performed By: #### L [id number] #### [facility] ([facility]) [address] [place] [address] MANUAL DIFFERENTIALon 2023 BASOPHILS (10*3/UL) IN BLOOD BY CALCULATION 0.01 10*3/uL Normal 0.00-0.20 [facility] Comment on above: Performed By: #### L [id number] ####[facility] ([facility])[address] [place] [address] BASOPHILS/100 LEUKOCYTES IN BLOOD BY AUTOMATED COUNT 0.2 % Normal 0.0-1.0 [facility] Comment on above: Performed By: #### L [id number] ####[facility] ([facility])[address] [place] [address] EOSINOPHILS (10*3/UL) IN BLOOD BY CALCULATION 0.00 10*3/uL Normal 0.00-0.50 [facility] Comment on above: Performed By: #### L [id number] ####[facility] ([facility])[address] [place] [address] EOSINOPHILS/100 LEUKOCYTES IN BLOOD BY AUTOMATED COUNT 0.0 % Normal 0.0-6.0 [facility] Comment on above: Performed By: #### L [id number] ####[facility] ([facility])[address] [place] [address] IMMATURE GRANULOCYTES (10*3/UL) IN BLOOD BY CALCULATION 0.02 10*3/uL Normal 0.00-0.20 [facility] Comment on above: Performed By: #### L [id number] ####[facility] ([facility])[address] [place] [address] IMMATURE GRANULOCYTES/100 LEUKOCYTES IN BLOOD BY AUTOMATED COUNT 0.3 % Normal 0.0-1.0 [facility] Comment on above: Performed By: #### L [id number] ####[facility] ([facility])[address] [place] [address] LYMPHOCYTES (10*3/UL) IN BLOOD BY CALCULATION 0.77 10*3/uL Low 1.20-4.00 [facility] Comment on above: Performed By: #### L [id number] ####[facility] ([facility])[address] [place] [address] LYMPHOCYTES/100 LEUKOCYTES IN BLOOD BY AUTOMATED COUNT 11.9 % Low 20.0-45.0 [facility] Comment on above: Performed By: #### L [id number] ####[facility] ([facility])[address] [place] [address] MONOCYTES (10*3/UL) IN BLOOD BY CALCUATION 0.36 10*3/uL Normal 0.10-1.00 [facility] Comment on above: Performed By: #### L [id number] ####[facility] ([facility])[address] [place] [address] MONOCYTES/100 LEUKOCYTES IN BLOOD BY AUTOMATED COUNT 5.5 % Normal 5.0-12.0 [facility] Comment on above: Performed By: #### L [id number] ####[facility] ([facility])[address] [facility] [address] NEUTROPHILS (10*3/UL) IN BLOOD BY CALCULATION 5.3 10*3/uL Normal 1.6-7.6 [facility] Comment on above: Performed By: #### L [id number] ####[facility] ([facility])[address] [address] NEUTROPHILS/100 LEUKOCYTES IN BLOOD BY AUTOMATED COUNT 82.1 % High 40.0-72.0 [facility] Comment on above: Performed By: #### L [id number] ####[facility] ([facility])[address] [place] [address] 30on 09-17-2023 30 The patient is Moder ately Stable - Low risk of patient condition declining or worsening The patient's goals for the shift include COMFORT The clinical goals for the shift include VSS Problem: Pain - Adult Goal: Verbalizes/displays adequate comfort level or baseline comfort level Outcome: Progressing Problem: Safety - Adult Goal: Free from fall injury Outcome: Progressing Normal [facility] 30 The patient is Moder ately Stable - Low risk of patient condition declining or worsening The patient's goals for the shift include COMFORT The clinical goals for the shift include VSS Normal [facility] HPon 09-17-2023 HP H&P reviewed. The pa eric was examined and there are no changes to the H&P. Normal [facility] MRSA/MSSA DNA NASALon 2023 MRSA DNA Negative Normal Negative [facility] Comment on above: Order Comment: Testi ng methodology is an automated qualitative in vitro diagnostic test for the directdetection and differentiation of Staphylococcus aureus (SA) DNA and methicillin-resistant Staphylococcus aureus (MRSA) DNA from nasal swabs in patients at risk for nasal colonization. The test utilizes real-time polymerase chain reaction (PCR) for the amplification of MRSA/SA DNA and fluorogenic target-specific hybridization probes for the detection of the amplified DNA. A negative result does not preclude nasal colonization. Performed By: #### L [id number] ####[facility] ([facility])[address] [place] [address] MSSA DNA Negative Normal Negative [facility] Comment on above: Order Comment: Testi ng methodology is an automated qualitative in vitro diagnostic test for the directdetection and differentiation of Staphylococcus aureus (SA) DNA and methicillin-resistant Staphylococcus aureus (MRSA) DNA from nasal swabs in patients at risk for nasal colonization. The test utilizes real-time polymerase chain reaction (PCR) for the amplification of MRSA/SA DNA and fluorogenic target-specific hybridization probes for the detection of the amplified DNA. A negative result does not preclude nasal colonization. Performed By: #### L [id number] ####[facility] ([facility])[address] [place] [address] OPNOTEon 09-17-2023 OPNOTE DAVINCI INCISIONAL H ERNIA REPAIR WITH MESH Operative Note Date: 09/17/2023 Location: [facility] OR Name: Judith Khan, : 1945, Diagnosis Pre-op Diagnosis * Incisional hernia, without obstruction or gangrene [K43.2] Post-op Diagnosis * Incisional hernia, without obstruction or gangrene [K43.2] Procedures * DAVINCI INCISIONAL HERNIA REPAIR WITH MESH Surgeons * Verena Sheehan - Primary Procedure Summary Anesthesia: General ASA: III Estimated Blood Loss: 10 mL Total IV Fluids: 1500 mL Drains: [REMOVED] Urethral Catheter 16 Fr. (Removed) Implants Type Name Action Serial No. Mesh MESH,SURCIGAL,PROGRIP,[id number] - [id number] Implanted Staff: [employer] Sales Associate: Angelic Conrad RN Relief [employer] Sales Associate: Gay Barnard RN Scrub Person: Carola Chatman CST; Rosana Rubi CST Indications: Judith Khan is an 78 y.o. female who is having surgery for Incisional hernia, without obstruction or gangrene [K43.2]. Robotic incisional hernia repair with mesh was offered to the patient, informed consent [...] actively warmed in preoperative area. Preoperative antibiotics have been ordered and given within 1 hours of incision. Venous thrombosis prophylaxis have been ordered including bilateral sequential compression devices Robotic ventral hernia repair with mesh was offered to the patient. The risk include but not limited to infection, bleeding, recurrence, bowel injury, seroma, heart attack, chronic pain. Patient expressed understanding, agreed to proceed. Procedure Details: The patient was seen in [...] actively warmed in preoperative area. Preoperative antibiotics have been ordered and given within 1 hours of incision. Venous thrombosis prophylaxis have been ordered including unilateral sequential compression device The patient was brought to the operating room, laid on the operating table in supine position. General anesthesia was initiated. Abdomen was prepped and draped in usual sterile fashion. Time-out was completed. Left subcostal 8 mm trocar was inserted using Optiview technique under direct visualization. CO2 insufflation was started. Another 2 8 mm trocar was inserted from left middle, and lower abdomen. 8 cm between each trocars. The da Grant Xi was docked. Left midabdomen 8 mm trocar as camera trocar with 30 degree up camera. Left upper quadrant trocar with the monopolar scissors, left lower quadrant trocar with the bipolar grasper. Lysis of adhesion was performed with monopolar scissors to take down the omentum from the large midline hernia defect. The midline hernia fascia defect was identified. A longitudinal left lateral posterior rectus sheath incision was made with monopolar scissors 15cm long. Posterior rectus sheath flap was raised with monopolar scissor. The hernia sac was reduced. Right side posterior rectus sheath flap was also raised in the same way. The fascial defect was measured with a ruler, which is 8cm long and the 8 cm wide. The fascia defect was approximated with permanent 1-0 V- lock running suture. Then 15 x 9 cm uncoated ProGrip mesh was obtained, rinsed by gentamicin solution. Then the mesh was inserted through the 8 mm trocar into peritoneal cavity. The mesh was placed to the posterior rectus space, the Velcrol side is self fixed to the fascia. The mesh was affixed to the fascia with1-0 Tycron interrupted sutures superiorly and right laterally. Then the posterior rectus sheath flap was closed with 2 0 V lock running suture. Two small hole on the peritoneal flap was closed with 1-0 Vicryl figure-eight sutures. Da Grant Xi was undocked. CO2 was desuf (more content not included)... Normal [facility] POCT GLUCOSE METER UNSOLICIT ED RESULTSon 09-17-2023 Glucose [Mass/Vol] 71 mg/dL Normal 70-105 [facility] Comment on above: Order Comment: Waive d Testing in the ED is performed under the ED CLIA certificate #[id number]. Result Comment: jhag eman Performed By: #### L [id number] ####[facility] ([facility])[address] [place] [address] SUJEY BY IFA WITH REFLEXon Nuclear Ab Ql (S) Negative Normal Negative [facility] Comment on above: Order Comment: Speci men Type: BLOOD SPECIMENOrdering Facility: [facility] Address: [address] [place] [address] Result Comment: Anti -nuclear antibody test is used as an aid in diagnosis of systemic autoimmune diseases. Where positive and clinically warranted, follow-up using disease-specific testing is recommended. Low positive titers are not uncommon with advanced age, certain chronic infections, and malignancies among others. Test methodology: Indirect fluorescence immunoassay (IFA) using HEp-2 cells. Performed By: #### A DAYNA ####[facility] LABCLIA [id number] [place] [address] [place] CBC W Auto Differential pane l (Bld)on 09-13-2023 Basophils (Bld) [#/Vol] 0.10 10*3/uL <0.11 k/uL [facility] Basophils/100 WBC (Bld) 1.3 % [facility] Differential cell count method Nom (Bld) Auto [facility] Eosinophils (Bld) [#/Vol] 0.67 10*3/uL High <0.46 k/uL [facility] Eosinophils/100 WBC (Bld) 8.4 % [facility] Erythrocyte distribution width (RBC) [Ratio] 14.1 % 11.5 - 15.0 % [facility] Hematocrit (Bld) [Volume fraction] 46.3 % High 36.0 - 46.0 % [facility] Hemoglobin (Bld) [Mass/Vol] 15.3 g/dL 11.5 - 15.5 g/dL [facility] Immature granulocytes (Bld) [#/Vol] <0.10 k/uL [facility] Immature granulocytes/100 WBC (Bld) 0.0 % [facility] Lymphocytes (Bld) [#/Vol] 3.14 10*3/uL 1.00 - 4.00 k/uL [facility] Lymphocytes/100 WBC (Bld) 39.3 % [facility] MCH (RBC) [Entitic mass] 31.4 pg 26.0 - 34.0 pg [facility] MCHC (RBC) [Mass/Vol] 33.0 g/dL 30.5 - 36.0 g/dL [facility] MCV (RBC) [Entitic vol] 94.9 fL 80.0 - 100.0 fL [facility] Monocytes (Bld) [#/Vol] 0.83 10*3/uL <0.87 k/uL [facility] Monocytes/100 WBC (Bld) 10.4 % [facility] Neutrophils (Bld) [#/Vol] 3.26 10*3/uL 1.45 - 7.50 k/uL [facility] Neutrophils/100 WBC (Bld) 40.6 % [facility] Nucleated RBC (Bld) [#/Vol] <0.01 k/uL [facility] Nucleated RBC/100 WBC (Bld) [Ratio] 0.0 /100 WBC [facility] Platelet mean volume (Bld) [Entitic vol] 11.7 fL 9.0 - 12.7 fL [facility] Platelets (Bld) [#/Vol] 296 10*3/uL 150 - 400 k/uL [facility] RBC (Bld) [#/Vol] 4.88 10*6/uL 3.90 - 5.2 0 m/uL [facility] WBC (Bld) [#/Vol] 8.00 10*3/uL 3.70 - 11.00 k/uL [facility] Basophils (Bld) [#/Vol] 0.10 10*3/uL Normal <0.11 [facility] Comment on above: Order Comment: Speci men Type: BLOOD SPECIMENOrdering Facility: [facility] Address: [address] [place] [address] Performed By: #### 5 7021-8, 4537-7 ####[facility] LABCLIA [id number] [place] [address] [place] Basophils/100 WBC (Bld) 1.3 % Normal [facility] Comment on above: Order Comment: Speci men Type: BLOOD SPECIMENOrdering Facility: [facility] Address: [address] [place] [address] Performed By: #### 5 7021-8, 4537-7 ####[facility] LABCLIA [id number] [place] [address] [place] Differential cell count method Nom (Bld) Auto Normal [facility] Comment on above: Order Comment: Speci men Type: BLOOD SPECIMENOrdering Facility: [facility] Address: [address] [place] [address] Performed By: #### 5 7021-8, 4537-7 ####[facility] LABCLIA [id number] [place] [address] [place] Eosinophils (Bld) [#/Vol] 0.67 10*3/uL High <0.46 [facility] Comment on above: Order Comment: Speci men Type: BLOOD SPECIMENOrdering Facility: [facility] Address: [address] [place] [address] Performed By: #### 5 7021-8, 4537-7 ####[facility] LABCLIA [id number] [place] [address] [place] Eosinophils/100 WBC (Bld) 8.4 % Normal [facility] Comment on above: Order Comment: Speci men Type: BLOOD SPECIMENOrdering Facility: [facility] Address: [address] [place] [address] Performed By: #### 5 7021-8, 4537-7 ####[facility] LABCLIA [id number] [place] [address] [place] Erythrocyte distribution width (RBC) [Ratio] 14.1 % Normal 11.5-15.0 [facility] Comment on above: Order Comment: Speci men Type: BLOOD SPECIMENOrdering Facility: [facility] Address: [address] [place] [address] Performed By: #### 5 7021-8, 4537-7 ####[facility] LABCLIA [id number] [place] [address] [place] Hematocrit (Bld) [Volume fraction] 46.3 % High 36.0-46.0 [facility] Comment on above: Order Comment: Speci men Type: BLOOD SPECIMENOrdering Facility: [facility] Address: [address] [place] [address] Performed By: #### 5 7021-8, 4537-7 ####[facility] LABCLIA [id number] [place] [address] [place] Hemoglobin (Bld) [Mass/Vol] 15.3 g/dL Normal 11.5-15.5 [facility] Comment on above: Order Comment: Speci men Type: BLOOD SPECIMENOrdering Facility: [facility] Address: [address] [place] [address] Performed By: #### 5 7021-8, 4537-7 ####[facility] LABCLIA [id number] [place] [address] [place] Immature granulocytes (Bld) [#/Vol] 10*3/uL Normal <0.10 [facility] Comment on above: Order Comment: Speci men Type: BLOOD SPECIMENOrdering Facility: [facility] Address: [address] [place] [address] Performed By: #### 5 7021-8, 4537-7 ####[facility] LABCLIA [id number] [place] [address] [place] Immature granulocytes/100 WBC (Bld) 0.0 % Normal [facility] Comment on above: Order Comment: Speci men Type: BLOOD SPECIMENOrdering Facility: [facility] Address: [address] [place] [address] Performed By: #### 5 7021-8, 7-7 ####[facility] LABCLIA [id number] [place] [address] [place] Lymphocytes (Bld) [#/Vol] 3.14 10*3/uL Normal 1.00-4.00 [facility] Comment on above: Order Comment: Speci men Type: BLOOD SPECIMENOrdering Facility: [facility] Address: [address] [place] [address] Performed By: #### 5 7021-8, 7-7 ####[facility] LABCLIA [id number] [place] [address] [place] Lymphocytes/100 WBC (Bld) 39.3 % Normal [facility] Comment on above: Order Comment: Speci men Type: BLOOD SPECIMENOrdering Facility: [facility] Address: [address] [place] [address] Performed By: #### 5 7021-8, 4537-7 ####[facility] LABIA [id number] [place] [address] [place] MCH (RBC) [Entitic mass] 31.4 pg Normal 26.0-34.0 [facility] Comment on above: Order Comment: Speci men Type: BLOOD SPECIMENOrdering Facility: [facility] Address: [address] [place] [address] Performed By: #### 5 7021-8, 453-7 ####[facility] LABIA [id number] [place] [address] [place] MCHC (RBC) [Mass/Vol] 33.0 g/dL Normal 30.5-36.0 [facility] Comment on above: Order Comment: Speci men Type: BLOOD SPECIMENOrdering Facility: [facility] Address: [address] [place] [address] Performed By: #### 5 7021-8, 4536-7 ####[facility] LABIA [id number] [place] [address] [place] MCV (RBC) [Entitic vol] 94.9 fL Normal 80.0-100.0 [facility] Comment on above: Order Comment: Speci men Type: BLOOD SPECIMENOrdering Facility: [facility] Address: [address] [place] [address] Performed By: #### 5 7021-8, 453-7 ####[facility] LABIA [id number] [place] [address] [place] Monocytes (Bld) [#/Vol] 0.83 10*3/uL Normal <0.87 [facility] Comment on above: Order Comment: Speci men Type: BLOOD SPECIMENOrdering Facility: [facility] Address: [address] [place] [address] Performed By: #### 5 7021-8, 4536-7 ####[facility] LABCLIA [id number] [place] [address] [place] Monocytes/100 WBC (Bld) 10.4 % Normal [facility] Comment on above: Order Comment: Speci men Type: BLOOD SPECIMENOrdering Facility: [facility] Address: [address] [place] [address] Performed By: #### 5 7021-8, 4536-7 ####[facility] LABCLIA [id number] [place] [address] [place] Neutrophils (Bld) [#/Vol] 3.26 10*3/uL Normal 1.45-7.50 [facility] Comment on above: Order Comment: Speci men Type: BLOOD SPECIMENOrdering Facility: [facility] Address: [address] [place] [address] Performed By: #### 5 7021-8, 7 ####[facility] LABIA [id number] [place] [address] [place] Neutrophils/100 WBC (Bld) 40.6 % Normal [facility] Comment on above: Order Comment: Speci men Type: BLOOD SPECIMENOrdering Facility: [facility] Address: [address] [place] [address] Performed By: #### 5 7021-8, 4536-7 ####[facility] LABCLIA [id number] [place] [address] [place] Nucleated RBC (Bld) [#/Vol] 10*3/uL Normal <0.01 [facility] Comment on above: Order Comment: Speci men Type: BLOOD SPECIMENOrdering Facility: [facility] Address: [address] [place] [address] Performed By: #### 5 7021-8, 4536-7 ####[facility] LABCLIA [id number] [place] [address] [place] Nucleated RBC/100 WBC (Bld) [Ratio] 0.0 /100 WBC Normal [facility] Comment on above: Order Comment: Speci men Type: BLOOD SPECIMENOrdering Facility: [facility] Address: [address] [place] [address] Performed By: #### 5 7021-8, 4537-7 ####[facility] LABCLIA [id number] [place] [address] [place] Platelet mean volume (Bld) [Entitic vol] 11.7 fL Normal 9.0-12.7 [facility] Comment on above: Order Comment: Speci men Type: BLOOD SPECIMENOrdering Facility: [facility] Address: [address] [place] [address] Performed By: #### 5 7021-8, 4537-7 ####[facility] LABCLIA [id number] [place] [address] [place] Platelets (Bld) [#/Vol] 296 10*3/uL Normal 150-400 [facility] Comment on above: Order Comment: Speci men Type: BLOOD SPECIMENOrdering Facility: [facility] Address: [address] [place] [address] Performed By: #### 5 7021-8, 4537-7 ####[facility] LABCLIA [id number] [place] [address] [place] RBC (Bld) [#/Vol] 4.88 10*6/uL Normal 3.90-5.20 [facility] Comment on above: Order Comment: Speci men Type: BLOOD SPECIMENOrdering Facility: [facility] Address: [address] [place] [address] Performed By: #### 5 7021-8, 4537-7 ####[facility] LABCLIA [id number] [place] [address] [place] WBC (Bld) [#/Vol] 8.00 10*3/uL Normal 3.70-11.00 [facility] Comment on above: Order Comment: Speci men Type: BLOOD SPECIMENOrdering Facility: [facility] Address: [address] [place] [address] Performed By: #### 5 7021-8, 4537-7 ####[facility] LABCLIA [id number] JOAN ISAAC [id number] OF [facility] CNOVon 09-13-2023 CNOV Office Visit (NREUS2 ) JUDITH KHAN ([id number]) 1945 F Date Time Provider Department 09/13/23 9:30 AM DAVID VALENTE NREUS2 During your visit today, we recorded the following information about you: Pulse Blood pressure Weight Height 85/minute 132/71 55.8 kg 1.676 m David Valente MD 09/13/2023 9:36 PM Signed [facility] NEW PATIENT EVALUATION thank you for referring Ms. Khan to our clinic today. As you know she is a 78 year old right-handed female who is seen in consultation for evaluation of parkinson disease since 2014. She is seen with a daughter. Subjective HISTORY OF PRESENT ILLNESS: Initial HPI Referral is for PD. Review of outside notes indicates she is on sinemet, gabapentin, flexeril, xanax, rasagiline, ropinerole. Per pt's daughter, hand tremor started in right hand around 2014. Per patient, the right hand tremor was equally there in action and in rest. She was referred to a neurologist. Of note she also has RLS, and was started on sinemet, in the s. Then, end of 2022, the sinemet dose was increased, but it caused extra movements of her trunk, 1 tablet three times/day. Was taken off of sinemet, then was started on ropinerole, dose was increased to 0.25mg, 2 tabs TID. Not enough effect, so rasagiline was started 1mg daily, this year. The medicines help a little bit, she is still independent in her ADLs. Lip tremors started recently. Her balance is way off . She is in PT. Her has vision problems, but has macular degeneration. RBD: denies Constipation: denies Smell: it is intact. Memory: She has a mental fog. She does not forget to take her medicines, but sometimes say odd things in conversation that may not have actually happened. Started maybe in 2022. Hallucinations: denies She has MRI report with cortical atrophy with mod chronic microvasuclar ischemic changes , lacunar infarcts of both putamen, and possible additional infarct in left cerebellum. 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 even at low doses Prior Anti-Parkinson Therapies Carbidopa/Levodopa Rasagiline Ropinirole Questionnaires: In addition, the following areas that may be affected by abnormal involuntary movements were evaluated: Daily activities Difficulties with eating: Yes (mild) Difficulties in dressing: Yes (mild) Difficulties with hygiene activities: 0 (none) Difficulties with handwriting: Yes (slight) Difficulties with doing hobbies and other activities: 0 (none) Difficulties turning in bed: Yes (moderate) Difficulties getting out of bed, car or chair: Yes (moderate) Tremors/Gait/Balance Shaking or tremors: Yes (mild) Walking and balance problems: Yes (slight) Number of falls in the Last Month: 0 Gait freezin (none) Autonomic/Pain Lightheadeness on standin (none) Urinary problems: 0 (none) Constipation problems: 0 (none) Pain and other sensations: 0 (none) Speech/Swallowing Speech problems: 0 (none) Drooling: Yes (slight) Chewing and swallowing problems: 0 (none) Sleep/Fatigue Sleep problems: Yes (severe) Daytime sleepiness: Yes (mild) Fatigue: Yes (mild) Mood/Behavior Depression: PHQ-9 Score: 9 usually representing mild (5-9) depression. Anxiety: JONATHAN-7 Total Score: 1 usually representing no significant (0-4) anxiety. Finally, the following table shows the patient's overall global physical and mental health using the PROMIS scale: PROMIS-10 Flowsheet Row Office Visit from 09/13/2023 in [facility] Global Physical Health T Score 39.8 Global Mental Health T Score 56 0-10 Standard Pain Scale 3 *PROMIS-10 scoring scale: mean = 50, over 50 is above average, under 50 is below average Review of Systems Eyes: Positive for visual disturbance. All other systems reviewed and are negative. ALLERGIES Allergen Reactions Aleve [Naproxen Sod* Unknown Sulfa (Sulfonamide * Anaphylaxis Current Outpatient Medications Medication Sig gabapentin (NEURONTIN) 300 mg capsule TAKE 1 CAPSULE BY MOUTH ONCE DAILY X3DAYS, 1 CAPSULE TWICE DAILY X3DAYS THEN 1 CAPSULE 3 TIMES DAILY rasagiline (AZILECT) 1 mg tab Take by mouth. cyclobenzaprine (FLEXERIL) 10 mg tablet Take 10 mg by mouth. aspirin, enteric coated (ASPIR-LOW) 81 mg EC tablet Take 1 tablet by mouth once daily. pravastatin 20 mg tablet Take 20 mg by mouth once daily. lisinopril-hydrochlorothiazi de 20-25 mg per tablet Take 1 tablet by mouth once daily. ALPRAZolam (XANAX) 1 mg tablet Take 1 mg by mouth at bedtime as needed. potassium chloride (KLOR-CON 10) 10 mEq tablet Take 20 mEq by mouth once daily. AMLODIPINE BESYLATE (AMLODIPINE ORAL) Take 10 mg by mouth once daily. Cholecalciferol, Vitamin D3, (D3 DOTS) 2,000 unit tab Take 2,000 Units by mouth once daily. MULTIVITAMIN (VITAMIN DAILY ORAL) Take by mouth once daily. KLOR-CON M20 20 mEq tablet Take 1 tablet by (more content not included)... Normal [facility] metabolic 2000 panelon 09-13-2023 Albumin [Mass/Vol] 4.3 g/dL 3.9 - 4.9 g/dL [facility] ALP [Catalytic activity/Vol] 92 U/L 34 - 123 U/L [facility] ALT [Catalytic activity/Vol] 14 U/L 7 - 38 U/L [facility] Anion gap [Moles/Vol] 13 mmol/L 9 - 18 mmol/L [facility] AST [Catalytic activity/Vol] 24 U/L 13 - 35 U/L [facility] Bilirubin [Mass/Vol] 0.3 mg/dL 0.2 - 1 .3 mg/dL [facility] Calcium [Mass/Vol] 11.0 mg/dL High 8.5 - 10. 2 mg/dL [facility] Chloride [Moles/Vol] 102 mmol/L 97 - 10 5 mmol/L [facility] CO2 [Moles/Vol] 25 mmol/L 22 - 30 mmol/L [facility] Creatinine [Mass/Vol] 0.95 mg/dL 0.58 - 0.96 mg/dL [facility] Estimated Glomerular Filtration Rate 62 mL/min/1.73m >=60 mL/min/1.73 m [facility] Glucose [Mass/Vol] 84 mg/dL 74 - 99 mg/dL [facility] Potassium [Moles/Vol] 4.0 mmol/L 3.7 - 5.1 mmol/L [facility] Protein [Mass/Vol] 6.7 g/dL 6.3 - 8.0 g/dL [facility] Sodium [Moles/Vol] 140 mmol/L 136 - 144 mmol/L [facility] Urea nitrogen [Mass/Vol] 20 mg/dL 7 - 21 mg/dL [facility] Albumin [Mass/Vol] 4.3 g/dL Normal 3.9-4.9 [facility] Comment on above: Order Comment: Speci men Type: BLOOD SPECIMENOrdering Facility: [facility] Address: [address] [place] [address] Performed By: #### 3 016-3, 38304-5 ####[facility] LABIA [id number] [place] [address] [place] ALP [Catalytic activity/Vol] 92 U/L Normal 34-123 [facility] Comment on above: Order Comment: Speci men Type: BLOOD SPECIMENOrdering Facility: [facility] Address: [address] [place] [address] Performed By: #### 3 016-3, 72358-3 ####[facility] LABIA [id number] [place] [address] [place] ALT [Catalytic activity/Vol] 14 U/L Normal 7-38 [facility] Comment on above: Order Comment: Speci men Type: BLOOD SPECIMENOrdering Facility: [facility] Address: [address] [place] [address] Performed By: #### 3 016-3, 75849-3 ####[facility] LABCLIA [id number] [place] [address] [place] Anion gap [Moles/Vol] 13 mmol/L Normal 9-18 [facility] Comment on above: Order Comment: Speci men Type: BLOOD SPECIMENOrdering Facility: [facility] Address: [address] [place] [address] Performed By: #### 3 016-3, ####[facility] LABCLIA [id number] [place] [address] [place] AST [Catalytic activity/Vol] 24 U/L Normal 13-35 [facility] Comment on above: Order Comment: Speci men Type: BLOOD SPECIMENOrdering Facility: [facility] Address: [address] [place] [address] Performed By: #### 3 016-3, 02649-1 ####[facility] LABCLIA [id number] [place] [address] [place] Bilirubin [Mass/Vol] 0.3 mg/dL Normal 0.2-1.3 [facility] Comment on above: Order Comment: Speci men Type: BLOOD SPECIMENOrdering Facility: [facility] Address: [address] [place] [address] Performed By: #### 3 016-3, 53157-1 ####[facility] LABCLIA [id number] [place] [address] [place] Calcium [Mass/Vol] 11.0 mg/dL High 8.5-10.2 [facility] Comment on above: Order Comment: Speci men Type: BLOOD SPECIMENOrdering Facility: [facility] Address: [address] [place] [address] Performed By: #### 3 016-3, 61751-3 ####[facility] LABCLIA [id number] [place] [address] [place] Chloride [Moles/Vol] 102 mmol/L Normal 97-105 [facility] Comment on above: Order Comment: Speci men Type: BLOOD SPECIMENOrdering Facility: [facility] Address: [address] [place] [address] Performed By: #### 3 016-3, 04055-4 ####[facility] LABCLIA [id number] [place] [address] [place] CO2 [Moles/Vol] 25 mmol/L Normal 22-30 [facility] Comment on above: Order Comment: Speci men Type: BLOOD SPECIMENOrdering Facility: [facility] Address: [address] [place] [address] Performed By: #### 3 016-3, 30377-2 ####[facility] LABIA [id number] [place] [address] [place] Creatinine [Mass/Vol] 0.95 mg/dL Normal 0.58-0.96 [facility] Comment on above: Order Comment: Speci men Type: BLOOD SPECIMENOrdering Facility: [facility] Address: [address] [place] [address] Performed By: #### 3 016-3, 89424-8 ####[facility] LABIA [id number] [place] [address] [place] Creatinine and Glomerular filtration rate.predicted panel (S/P/Bld) 62 mL/min/1.73m??? Normal >=60 [facility] Comment on above: Order Comment: Speci men Type: BLOOD SPECIMENOrdering Facility: [facility] Address: [address] [place] [address] Result Comment: Adrienne mated Glomerular Filtration Rate (eGFR) is calculated using the 2020 CKD-EPI creatinine equation. This equation utilizes serum creatinine, sex, and age as parameters. The creatinine assay has traceable calibration to isotope dilution-mass spectrometry. Refer to KDIGO guidelines for clinical interpretation. In patients with unstable renal function, e.g. those with acute kidney injury, the eGFR may not accurately reflect actual GFR. Performed By: #### 3 016-3, 77410-0 ####[facility] LABCLIA [id number] [place] [address] [place] Glucose [Mass/Vol] 84 mg/dL Normal 74-99 [facility] Comment on above: Order Comment: Speci men Type: BLOOD SPECIMENOrdering Facility: [facility] Address: [address] [place] [address] Result Comment: The [place] Diabetes Association (ADA) provides guidance for cutoff values for fasting glucose and random glucose. The ADA defines fasting as no caloric intake for at least 8 hours. Fasting plasma glucose results between 100 to 125 mg/dL indicate increased risk for diabetes (prediabetes). Fasting plasma glucose results greater than or equal to 126 mg/dL meet the criteria for diagnosis of diabetes. In the absence of unequivocal hyperglycemia, results should be confirmed by repeat testing. In a patient with classic symptoms of hyperglycemia or hyperglycemic crisis, random plasma glucose results greater than or equal to 200 mg/dL meet the criteria for diagnosis of diabetes. Reference: Standards of Medical Care in Diabetes 2016, [place] [employer] Association. Diabetes Care. 2016.39(Suppl 1). Performed By: #### 3 016-3, 49258-2 ####[facility] LABIA [id number] [place] [address] [place] Potassium [Moles/Vol] 4.0 mmol/L Normal 3.7-5.1 [facility] Comment on above: Order Comment: Speci men Type: BLOOD SPECIMENOrdering Facility: [facility] Address: [address] [place] [address] Performed By: #### 3 016-3, 11447-9 ####[facility] LABIA [id number] [place] [address] [place] Protein [Mass/Vol] 6.7 g/dL Normal 6.3-8.0 [facility] Comment on above: Order Comment: Speci men Type: BLOOD SPECIMENOrdering Facility: [facility] Address: [address] [place] [address] Performed By: #### 3 016-3, 68091-8 ####[facility] LABIA [id number] [place] [address] [place] Sodium [Moles/Vol] 140 mmol/L Normal 136-144 [facility] Comment on above: Order Comment: Speci men Type: BLOOD SPECIMENOrdering Facility: [facility] Address: [address] [place] [address] Performed By: #### 3 016-3, 11919-5 ####[facility] LABIA [id number] [place] [address] [place] Urea nitrogen [Mass/Vol] 20 mg/dL Normal 7-21 [facility] Comment on above: Order Comment: Speci men Type: BLOOD SPECIMENOrdering Facility: [facility] Address: [address] [place] [address] Performed By: #### 3 016-3, 89179-4 ####[facility] [id number] [place] [address] [place] ESR Westergren method (Bld) [Velocity]on 09-13-2023 ESR (Bld) [Velocity] 10 mm/h 0 - 20 mm/hr [facility] ESR (Bld) [Velocity] 10 mm/h Normal 0-20 [facility] Comment on above: Order Comment: Speci men Type: BLOOD SPECIMENOrdering Facility: [facility] Address: [address] [place] [address] Performed By: #### 5 7021-8, 4537-7 ####[facility] [id number] [place] [address] [place] FOLATE SERUMon 09-13-2023 Folate [Mass/Vol] >4.7 ng/mL [facility] Folate SerPl-mCncon 09-13-19 Folate [Mass/Vol] ng/mL Normal >4.7 [facility] Comment on above: Order Comment: Speci men Type: BLOOD SPECIMENOrdering Facility: [facility] Address: [address] [place] [address] Result Comment: A re sult of > 20 ng/mL is not necessarily indicative of a pathologic or treatable condition: it reflects a limitation of the test methodology. Assay reference range: 4.8 to 24.2 ng/mL. Suitable for detection of folate deficiency. Reference: Folate III (Folate III) [package insert V 1.0 [place]]. [employer], [place], [place]: April 2015. Performed By: #### 2 885-2, 2132-9, 2284-8 ####[facility] LABCLIA [id number] [place] [address] [place] HOMOCYSTEINEon 09-13-2023 Homocysteine [Moles/Vol] 11.3 umol/L <15.1 umol/L [facility] HbA1c (Bld)on 09-13-2023 Average glucose Estimated from glycated hemoglobin (Bld) [Mass/Vol] 103 mg/dL [facility] HbA1c (Bld) [Mass fraction] 5.2 % 4.3 - 5.6 % [facility] Average glucose Estimated from glycated hemoglobin (Bld) [Mass/Vol] 103 mg/dL Normal [facility] Comment on above: Order Comment: Mery goodwin Type: BLOOD SPECIMEN [facility]: [facility] Address: [address] [place] [address] Result Comment: eAG: (Estimated average glucose) is a calculated value from HgbA1c and is industrial sales representative of the average blood glucose level in the last 2-3 month period. Performed By: #### 5 5454-3 #### [facility] LAB CLIA [id number] [address] [place] [address] [place] HbA1c (Bld) [Mass fraction] 5.2 % Normal 4.3-5.6 [facility] Comment on above: Order Comment: Mery goodwin Type: BLOOD SPECIMEN [facility]: [facility] Address: [address] [place] [address] Result Comment: [place] Diabetes Association guidelines indicate that patients with HgbA1c in the range 5.7-6.4% are at increased risk for development of diabetes, and intervention by lifestyle modification may be beneficial. HgbA1c greater or equal to 6.5% is considered diagnostic of diabetes. Performed By: #### 5 5454-3 #### [facility] CLIA [id number] [address] [place] [address] [place] Hcys SerPl-sCncon 09-13-2023 Homocysteine [Moles/Vol] 11.3 umol/L Normal <15.1 [facility] Comment on above: Order Comment: Speci men Type: BLOOD SPECIMENOrdering Facility: [facility] Address: [address] [place] [address] Performed By: #### 1 3965-9 ####[facility] LABCLIA [id number] [place] [address] [place] Methylmalonate SerPl-sCncon 09-13-2023 Methylmalonate [Moles/Vol] 0.19 umol/L Normal <=0.40 [facility] Comment on above: Order Comment: Speci men Type: BLOOD SPECIMENOrdering Facility: [facility] Address: [address] [place] [address] Result Comment: This test was developed and its performance characteristics determined by [facility]'s [facility] [place] [facility] It has not been cleared or approved by the FDA. -[facility] is regulated under CLIA as qualified to perform high-complexity testing. This test is used for clinical purposes. It should not be regarded as investigational or for research. Performed By: #### 1 3964-2 ####[facility] LABCLIA [id number] [place] [address] [place] PROTEIN ELECTROPHORESIS SERU M (P)on 09-13-2023 Albumin [Mass/Vol] 4.07 g/dL Normal 3.43-5.41 [facility] Comment on above: Order Comment: Speci men Type: BLOOD SPECIMENOrdering Facility: [facility] Address: [address] [place] [address] Performed By: #### L [id number] ####[facility] LABIA [id number] [place] [address] [place] Alpha 1 globulin Elph [Mass/Vol] 0.37 g/dL Normal 0.18-0.43 [facility] Comment on above: Order Comment: Speci men Type: BLOOD SPECIMENOrdering Facility: [facility] Address: [address] [place] [address] Performed By: #### L [id number] ####[facility] LABIA [id number] [place] [address] [place] Alpha 2 globulin Elph [Mass/Vol] 0.70 g/dL Normal 0.42-0.98 [facility] Comment on above: Order Comment: Speci men Type: BLOOD SPECIMENOrdering Facility: [facility] Address: [address] [place] [address] Performed By: #### L [id number] ####[facility] LABIA [id number] [place] [address] [place] Beta globulin Elph [Mass/Vol] 0.69 g/dL Normal 0.61-1.17 [facility] Comment on above: Order Comment: Speci men Type: BLOOD SPECIMENOrdering Facility: [facility] Address: [address] [place] [address] Performed By: #### L [id number] ####[facility] LABIA [id number] [place] [address] [place] Gamma globulin Elph [Mass/Vol] 0.57 g/dL Normal 0.53-1.51 [facility] Comment on above: Order Comment: Speci men Type: BLOOD SPECIMENOrdering Facility: [facility] Address: [address] [place] [address] Performed By: #### L [id number] ####[facility] LABIA [id number] [place] [address] [place] M-PROTEIN LOCATION Normal [facility] Comment on above: Order Comment: Speci men Type: BLOOD SPECIMENOrdering Facility: [facility] Address: [address] [place] [address] Result Comment: Not Applicable. Performed By: #### L [id number] ####[facility] LABCLIA [id number] [place] [address] [place] Protein Fractions [Interp] No definitive M protein is identified on protein electrophoresis. Normal No definitive M protein is identified on protein electrophor esis. [facility] Comment on above: Order Comment: Speci men Type: BLOOD SPECIMENOrdering Facility: [facility] Address: [address] [place] [address] Performed By: #### L [id number] ####[facility] LABCLIA [id number] [place] [address] [place] Protein.monoclonal Elph [Mass/Vol] 0.00 g/dL Normal <=0.00 [facility] Comment on above: Order Comment: Speci men Type: BLOOD SPECIMENOrdering Facility: [facility] Address: [address] [place] [address] Performed By: #### L [id number] ####[facility] LABCLIA [id number] [place] [address] [place] SPE STAFF REVIEW Reviewed by Dr. Lelo Santiago MD [facility] Comment on above: Order Comment: Speci men Type: BLOOD SPECIMENOrdering Facility: [facility] Address: [address] [place] [address] Performed By: #### L [id number] ####[facility] LABCLIA [id number] [place] [address] [place] Prot SerPl-mCncon 09-13-2023 Protein [Mass/Vol] 6.4 g/dL Normal 6.3-8.0 [facility] Comment on above: Order Comment: Speci men Type: BLOOD SPECIMENOrdering Facility: [facility] Address: [address] [place] [address] Performed By: #### 2 885-2, 2132-9, 2284-8 ####[facility] LABCLIA [id number] [place] [address] [place] Prot Ur-mCncon 09-13-2023 Protein (U) [Mass/Vol] 6 mg/dL Normal 0-20 [facility] Comment on above: Order Comment: Speci men Type: URINE SPECIMENOrdering Facility: [facility] Address: [address] [place] [address] Performed By: #### 2 888-6 ####[facility] LABCLIA [id number] [place] [address] [place] TSH BLDon 09-13-2023 TSH Qn 0.911 m[IU]/L 0.270 - 4.200 mIU/L [facility] TSH SerPl-aCncon 09-13-2023 TSH Qn 0.911 m[IU]/L Normal 0.270-4.200 [facility] Comment on above: Order Comment: Speci men Type: BLOOD SPECIMENOrdering Facility: [facility] Address: [address] [place] [address] Performed By: #### 3 016-3, 50369-9 ####[facility] LABCLIA [id number] [place] [address] [place] URINE PROTEIN ELECTROPHORESI S RANDOM (P)on 09-13-2023 Albumin Elph (U) [Mass fraction] 42.54 % Normal [facility] Comment on above: Order Comment: Speci men Type: URINE SPECIMENOrdering Facility: [facility] Address: [address] [place] [address] Performed By: #### L [id number] ####[facility] LABCLIA [id number] [place] [address] [place] Alpha 1 globulin Elph (U) [Mass fraction] 5.38 % Normal [facility] Comment on above: Order Comment: Speci men Type: URINE SPECIMENOrdering Facility: [facility] Address: [address] [place] [address] Performed By: #### L [id number] ####[facility] LABCLIA [id number] [place] [address] [place] Alpha 2 globulin Elph (U) [Mass fraction] 16.91 % Normal [facility] Comment on above: Order Comment: Speci men Type: URINE SPECIMENOrdering Facility: [facility] Address: [address] [place] [address] Performed By: #### L [id number] ####[facility] LABCLIA [id number] [place] [address] [place] Beta globulin Elph (U) [Mass fraction] 24.59 % Normal [facility] Comment on above: Order Comment: Speci men Type: URINE SPECIMENOrdering Facility: [facility] Address: [address] [place] [address] Performed By: #### L [id number] ####[facility] LABCLIA [id number] [place] [address] [place] Gamma globulin Elph (U) [Mass fraction] 10.58 % Normal [facility] Comment on above: Order Comment: Speci men Type: URINE SPECIMENOrdering Facility: [facility] Address: [address] [place] [address] Performed By: #### L [id number] ####[facility] LABCLIA [id number] [place] [address] [place] INTERPRETATION COMMENT FOR PROTEIN ELECTROPHORESIS The absence of M-protein on urine protein electrophoresis does not entirely exclude the presence of monoclonal gammopathy in urine. Monoclonal protein analysis (immunofixation), a more definitive test to exclude monoclonal gammopathy, may be requested on this specimen if clinically indicated. Normal [facility] Comment on above: Order Comment: Speci men Type: URINE SPECIMENOrdering Facility: [facility] Address: [address] [place] [address] Performed By: #### L [id number] ####[facility] LABIA [id number] [place] [address] [place] Protein Fractions Elph Brandt (U) [Interp] No definitive M protein is identified on protein electrophoresis. Normal No definitive M protein is identified on protein electrophor esis. [facility] Comment on above: Order Comment: Speci men Type: URINE SPECIMENOrdering Facility: [facility] Address: [address] [place] [address] Performed By: #### L [id number] ####[facility] LABIA [id number] [address] STAFF REVIEW (URINE ELECTRO) Reviewed by Dr. Richard Santiago MD Normal [facility] Comment on above: Order Comment: Speci men Type: URINE SPECIMENOrdering Facility: [facility] Address: [address] [place] [address] Performed By: #### L [id number] ####[facility] [id number] [place] [address] [place] VITAMIN B12 BLOODon 09-13-19 24 Cobalamin (Vitamin B12) [Mass/Vol] 939 pg/mL 232 - 1,245 pg/mL [facility] Vit B12 SerPl-mCncon 024 Cobalamin (Vitamin B12) [Mass/Vol] 939 pg/mL Normal 232-1245 [facility] Comment on above: Order Comment: Speci men Type: BLOOD SPECIMENOrdering Facility: [facility] Address: [address] [place] [address] Performed By: #### 2 885-2, 2132-9, 2284-8 ####[facility] LABIA [id number] [place] [address] [place] Orders Onlyon 09-11-2023 Orders Only [id number] Donato Khan 1945 F Date Provider Department Center 09/11/[address] [facility] SURG [facility] Family History Problem Relation Age of Onset Stroke Mother Stroke Brother Other Mother's Sister Coronary artery disease Mother's Sister Stroke Maternal Grandmother Family Status - Relation Status Age at Mother Brother Mother's Sister Maternal Grandmother Normal [facility] [id number] 09-10-2023 [id number] PT HOLDING ASPIRIN P ER DR SHEEHAN ON 09/09 MEDICATIONS TO TAKE DAY OF SURGERY WITH SIP OF WATER XANAX AMLODIPINE GABAPENTIN ISOSORBIDE PROTONIX PT DAUGHTER AGREES TO TAKE PT TO [facility] FOR LABS ON 09/10 LAB ORDERS FAXED TO [phone] HOLD VITAMINS AND SUPPLEMENTS 5 DAYS PRIOR TO PROCEDURE HOLD ALL ANTI INFLAMMATORIES ETC:MOTRIN, ADVIL, ALEVE, FOR 5 DAYS PRIOR TO PROCEDURE IF YOU ARE GOING HOME AFTER YOUR SURGERY OR PROCEDURE, FOR YOUR SAFETY, YOUR SURGERY WILL BE CANCELLED IF BOTH OF THE FOLLOWING ARE NOT AVAILABLE: An adult route driver over the age of 18, 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 Do not wear perfume, make-up, nail bhutanese, or lotions on the day of your [...] need to make any changes, please call [phone]. Notify your surgeon if you develop any illness such as a cold, cough, fever, sore throat or vomiting between now and your surgery. Thank you for entrusting us with your care. [facility] Surgical Services Team Normal [facility] Telephoneon 09-10-2023 Telephone [id number] Donato Khan raffy A 1945 Date Provider Department Center 09/10/2023 KERWIN ABDI [facility] SURG Second Fl Family History Problem Relation Age of Onset Stroke Mother Stroke Brother Other Mother's Sister Coronary artery disease Mother's Sister Stroke Maternal Grandmother Family Status - Relation Status Age at Mother Brother Mother's Sister Maternal Grandmother Reason for Visit and Comments: telephone [Other] Normal [facility] Documentationon 08-27-2023 Documentation [id number] Donato Khan raffy A 1945 Provider Department Center 08/27/2023 MILA SORIA [facility] Family History Problem Relation Age of Onset Stroke Mother Stroke Brother Other Mother's Sister Coronary artery disease Mother's Sister Stroke Maternal Grandmother Family Status - Relation Status Age at Mother Brother Mother's Sister Maternal Grandmother Normal [facility] HPon 08-22-2023 HP Subjective Patient ID: Judith Khan is a [...] time. (ESOPHAGOGASTRODUODENOSCOPY) Operative Note Date: 08/13/2023 Location: [facility] OR Name: Judith Khan, : 1945, Diagnosis Pre-op Diagnosis * Hiatal hernia [K44.9] Post-op Diagnosis * Chronic gastric ulcer without hemorrhage and without perforation [K25.7] Procedures EGD (ESOPHAGOGASTRODUODENOSCOPY) 07536 - [facility] ESOPHAGOGASTR[facility]ODENOSCOPY [facility] Sur[facility] * Verena Sheehan - Primary Procedure Summary Anesthesia: Monitor Anesthesia Care ASA: III Estimated Blood Loss: Minimal Total IV Fluids: 500 mL Drains: * None in log * Staff: [employer] Sales Associate: Jian Kat RN Scrub Person: Eva Zambrano [...] NOTE Patient: Judith Khan : 1945 Facility: [facility] Referring/PCP: Kavon Sams MD Procedure: Esophagogastroduodenoscopy [...] 1. -Follow up with me. 2. -PPIs [phone] pager [phone] Assessment/Plan Incisional hernia Gastric ulcer Robotic incisional hernia repair with mesh Cardiac clearance PPIs No diagnosis found. No orders of the defined types were placed in this encounter. No results found for this or any previous visit (from the past 36 hour(s)). No follow-ups on file. Normal [facility] Office Visiton 08-22-2023 Follow-up visit [id number] Donato Khan 1945 F Date Provider Department Center 08/22/2023 454-VERENA SHEEHAN [facility] SURG Second Fl Family History Problem Relation Age of Onset Stroke Mother Stroke Brother Other Mother's Sister Coronary artery disease Mother's Sister Stroke Maternal Grandmother Family Status - Relation Status Age at Mother Brother Mother's Sister Maternal Grandmother Level of Service:97995 [facility] OFFICE/OUTPATIENT ESTABLISHED MOD MDM 30 MIN Reason for Visit and Comments: Post-op [483] - Judith is here today for a post op visit for a hiatal hernia, s/p 08/13/[address] Normal [facility] MR head/brain wo/w conon MR head/brain wo/w con [facility] Main Mobile [address] [place] [address] MRI Report Signed Patient: Judith Khan MR#: [id number] 320 : 1945 Acct:[id number] Age/Sex: 78 / F ADM Date: 08/14/23 Loc: [facility] Room: Type: [facility] Attending Dr: Giovanni COLIN Copies to: DIXIE Eng Ordering Provider: [...] study Impression dictated by: Ramsey Guerrero Jr., D.ORatna08/14/2023 3:44 PM Dictation Location: [place] [address] Transcribed By: [facility] 08/14/23 1544 Dictated By: Ramsey Guerrero Jr, 08/14/23 1536 Signed By: 08/14/23 [address] [facility] [address] ABDOMEN WO IV CONTRASTon 08-13-2023 CT [...] Ernie Guerin. Not Vldtd Invalid Interpretation Code [facility] Comment on above: Order Comment: With oral contrast OPNOTEon 08-13-2023 OPNOTE EGD (ESOPHAGOGASTRODUODENOSCOPY) Operative Note Date: 08/13/2023 Location: [facility] OR Name: Judith Khan, : 1945, Diagnosis Pre-op Diagnosis * Hiatal hernia [K44.9] Post-op Diagnosis * Chronic gastric ulcer without hemorrhage and without perforation [K25.7] Procedures EGD (ESOPHAGOGASTRODUODENOSCOPY) 50742 - [place] ESOPHAGOGASTR[facility]ODENOSCOPY [facility] Surgeons * Verena Sheehan - Primary Procedure Summary Anesthesia: Monitor Anesthesia Care ASA: III Estimated Blood Loss: Minimal Total IV Fluids: 500 mL Drains: * None in log * Staff: [employer] Sales Associate: Jian Kat RN Scrub Person: Eva Zambrano CST Indications: Judith Kahn is an 78 y.o. female who is [...] NOTE Patient: Judith Khan : 1945 Facility: [facility] Referring/PCP: Kavon Sams MD Procedure: Esophagogastroduodenoscopy [...] particles Recommendations: 1. -Follow up with me. [phone] pager [phone] Normal [facility] OPNOTE EGD (ESOPHAGOGASTRODUODENOSCOPY) Operative Note Date: 08/13/2023 Location: [facility] OR Name: Judith Khan, : 1945, Diagnosis Pre-op Diagnosis * Hiatal hernia [K44.9] Post-op Diagnosis * Chronic gastric ulcer without hemorrhage and without perforation [K25.7] Procedures EGD (ESOPHAGOGASTRODUODENOSCOPY) 99929 - [facility] ESOPHAGOGASTRODUODENOSCOPY [facility] Surgeons * Verena Sheehan - Primary Procedure Summary Anesthesia: Monitor Anesthesia Care ASA: III Estimated Blood Loss: Minimal Total IV Fluids: 500 mL Drains: * None in log * Staff: [employer] Sales Associate: Jian Kat RN Scrub Person: Eva Zambrano [...] NOTE Patient: Judith Khan : 1945 Facility: [facility] Referring/PCP: Kavon Sams MD Procedure: Esophagogastroduodenoscopy [...] 1. -Follow up with me. 2. -PPIs [phone] pager [phone] Normal [facility] POCT GLUCOSE METER UNSOLICIT ED RESULTSon 08-13-2023 Glucose [Mass/Vol] 85 mg/dL Normal 70-105 [facility] Comment on above: Order Comment: Waive d Testing in the ED is performed under the ED CLIA certificate #[id number]. Result Comment: [facility] jamar Performed By: #### L [id number] #### [facility] [address] [place] [address] Office Visiton 08-07-2023 Follow-up visit [id number] Donato Khan 1945 F Date Provider Department Center 08/07/2023 454-VERENA SHEEHAN [facility] SURG [place] Family History Problem Relation Age of Onset Stroke Mother Stroke Brother Other Mother's Sister Coronary artery disease Mother's Sister Stroke Maternal Grandmother Family Status - Relation Status Age at Mother Brother Mother's Sister Maternal Grandmother Level of Service:09135 [facility] OFFICE/OUTPATIENT NEW LOW MDM 30 MINUTES Reason for Visit and Comments: New Patient [632] - Judith is here as a new patient for hiatal hernia, s/p ecko Normal [facility] C Urineon 07-18-2023 Bacteria identified Cx [...] Locations R1: This test was performed at: [facility], [address] [place] [address], [address]- , , Normal [facility] Comment on above: Performed By: #### 2 [id number], [id number] #### [facility] [address] [place] [address] BMPon 07-16-2023 Anion gap [Moles/Vol] 14 mmol/L Normal 6-16 [facility] Comment on above: Performed By: #### 2 119003, [id number] #### [facility] [address] [place] [address] BUN/Creat Ratio 22 No Units High 10-20 [facility] Comment on above: Performed By: #### 2 283702, [id number] #### [facility] [address] [place] [address] Calcium [Mass/Vol] 11.6 mg/dL High 8.9-11.1 [facility] Comment on above: Performed By: #### 2 408737, [id number] #### [facility] [address] [place] [address] Chloride [Moles/Vol] 105 mmol/L Normal 101-111 [facility] Comment on above: Performed By: #### 2 581353, [id number] #### [facility] [address] [place] [address] CO2 [Moles/Vol] 26 mmol/L Normal 21-31 [facility] Comment on above: Performed By: #### 2 519812, [id number] #### [facility] [address] [place] [address] Creatinine [Mass/Vol] 0.9 mg/dL Normal 0.5-1.3 [facility] Comment on above: Performed By: #### 2 138193, [id number] #### [facility] [address] [place] [address] Glucose [Mass/Vol] 87 mg/dL Normal 55-199 [facility] Comment on above: Performed By: #### 2 283261, [id number] #### [facility] [address] [place] [address] Potassium [Moles/Vol] 4.0 mmol/L Normal 3.5-5.3 [facility] Comment on above: Performed By: #### 2 741069, [id number] #### [facility] [address] [place] [address] Sodium [Moles/Vol] 141 mmol/L Normal 135-145 [facility] Comment on above: Performed By: #### 2 657414, [id number] #### [facility] [address] [place] [address] Urea nitrogen [Mass/Vol] 20 mg/dL Normal 5-21 [facility] Comment on above: Performed By: #### 2 093056, [id number] #### [facility] [address] [place] [address] CBC w/ Auto Diffon 4 Basophil Absolute 0.1 E9/L Normal 0.0-0.2 [facility] Comment on above: Performed By: #### 2 199764, [id number] #### [facility] [address] [place] [address] Basophils/100 WBC (Bld) 1.1 % Normal 0.0-2.0 [facility] Comment on above: Performed By: #### 2 714463, [id number] #### [facility] [address] [place] [address] Eos Absolute 0.2 E9/L Normal 0.0-0.5 [facility] Comment on above: Performed By: #### 2 315121, [id number] #### [facility] [address] [place] [address] Eosinophils/100 WBC (Bld) 1.7 % Normal 0.0-8.0 [facility] Comment on above: Performed By: #### 2 624823, [id number] #### [facility] [address] [place] [address] Erythrocyte distribution width (RBC) [Ratio] 13.5 % Normal 10.9-14.2 [facility] Comment on above: Performed By: #### 2 696983, [id number] #### [facility] [address] [place] [address] Hematocrit (Bld) [Volume fraction] 43.0 % Normal 34.0-46.0 [facility] Comment on above: Performed By: #### 2 534060, [id number] #### [facility] [address] [place] [address] Hemoglobin (Bld) [Mass/Vol] 14.3 g/dL Normal 12.0-16.0 [facility] Comment on above: Performed By: #### 2 207712, [id number] #### [facility] [address] [place] [address] Lymph Absolute 3.4 E9/L Normal 1.0-4.0 [facility] Comment on above: Performed By: #### 2 831791, [id number] #### [facility] [address] [place] [address] Lymphocytes/100 WBC (Bld) 38.0 % Normal 14.0-50.0 [facility] Comment on above: Performed By: #### 2 500138, 08393893 #### [facility] [address] [place] [address] MCH (RBC) [Entitic mass] 30.9 pg Normal 27.0-34.0 [facility] Comment on above: Performed By: #### 2 082267, 39601792 #### [facility] [address] [place] [address] MCHC (RBC) [Mass/Vol] 33.0 g/dL Normal 31.4-36.0 [facility] Comment on above: Performed By: #### 2 480221, [id number] #### [facility] [address] [place] [address] MCV (RBC) [Entitic vol] 93.5 fL Normal 80.0-100.0 [facility] Comment on above: Performed By: #### 2 252009, [id number] #### [facility] [address] [place] [address] Rowan Absolute 1.2 E9/L High 0.2-1.0 [facility] Comment on above: Performed By: #### 2 799764, 63697129 #### [facility] [address] [place] [address] Monocytes/100 WBC (Bld) 12.9 % Normal 4.0-14.0 [facility] Comment on above: Performed By: #### 2 694381, 45690397 #### [facility] [address] [place] [address] Neutro Absolute 4.2 E9/L Normal 2.0-7.5 [facility] Comment on above: Performed By: #### 2 991895, [id number] #### [facility] [address] [place] [address] Neutro Auto 46.3 % Normal 36.0-75.0 [facility] Comment on above: Performed By: #### 2 921830, 63386268 #### [facility] [address] [place] [address] Platelet 325.0 E9/L Normal 150.0-500.0 [facility] Comment on above: Performed By: #### 2 172747, 07432354 #### [facility] [address] [place] [address] Platelet mean volume (Bld) [Entitic vol] 9.3 fL Normal 6.4-10.8 [facility] Comment on above: Performed By: #### 2 120794, 76612751 #### [facility] [address] [place] [address] RBC 4.6 E12/L Normal 4.3-5.9 [facility] Comment on above: Performed By: #### 2 954133, 91385067 #### [facility] [address] [place] [address] WBC 9.0 E9/L Normal 4.0-11.0 [facility] Comment on above: Performed By: #### 2 637700, 54690334 #### [facility] [address] [place] [address] CHEMISTRYOrdered By: SYSTEM SYSTEM on 07-16-2023 Troponin 19.60 pg/mL Normal 10.10 - 27.10 pg/mL [facility] Comment on above: Interpretive Data: T he 95% CI (Confidence Interval) PPV (Positive Predictive Value) for myocardial infarction in females is 38 pg/mL, in males 51 pg/mL. The results should be used in conjunction with clinical conditions of myocardial infarction. (Access High Sensitivity Troponin I Instructions For Use, Jacques Mikado, January 2018) Anion gap [Moles/Vol] 14 mmol/L Normal 6 - 16 mEq/L [facility] Calcium [Mass/Vol] 11.6 mg/dL High 8.9 - 11. 1 mg/dL [facility] Chloride [Moles/Vol] 105 mmol/L Normal 101 - 1 11 mmol/L [facility] CO2 [Moles/Vol] 26 mmol/L Normal 21 - 31 mmol/L [facility] Creatinine [Mass/Vol] 0.9 mg/dL Normal 0.5 - 1.3 mg/dL [facility] eGFR 66 mL/min/1.73 m2 Normal >=59mL/min / 1.73 m2 [facility] Glucose [Mass/Vol] 87 mg/dL Normal 55 - 199 mg/dL [facility] Potassium [Moles/Vol] 4.0 mmol/L Normal 3.5 - 5.3 mmol/L [facility] Sodium [Moles/Vol] 141 mmol/L Normal 135 - 145 mmol/L [facility] Troponin 21.20 pg/mL Normal 10.10 - 27.10 pg/mL [facility] Comment on above: Interpretive Data: T he 95% CI (Confidence Interval) PPV (Positive Predictive Value) for myocardial infarction in females is 38 pg/mL, in males 51 pg/mL. The results should be used in conjunction with clinical conditions of myocardial infarction. (Access High Sensitivity Troponin I Instructions For Use, Jacques Mikado, January 2018) Urea nitrogen [Mass/Vol] 20 mg/dL Normal 5 - 21 mg/dL [facility] Urea nitrogen/Creatinine [Mass ratio] 22 mg/mg High 10 - 20 [facility] Consent for Treatmenton Consent for Treatment [id number] Normal [facility] Discharge Instructionson Discharge Instructions [id number] Normal [facility] ED Clinical Summaryon 2023 ED Clinical Summary (Inserted Image. Jenni ble to display) [place] [id number] ED Clinical Summary Person Information Name: JUDITH KHAN [place] Age: 78 Years : 1945 Sex: Female Language: Argentine PCP: Kavon Sams MD Marital Status: Visit [...] 07/16/2023 15:44:31 07/16/2023 15:44:31 07/16/2023 15:44:31 ADDRESS: [address] [place] [id number] PHYS DOC NOTES: MEDICAL INFORMATION: Prescriptions Given: [...] Follow up: With: Address: When: Kavon Sams [address] [place] [address], [place] [address] Business (1) In 3 days 07/19/2023 DIAGNOSIS: Weakness Normal [facility] ED Note-Physicianon 07-16-19 ED Note-Physician Basic Information Time Seen: Dom SZYMANSKILeighton 07/16/2023 11:45 Chief Complaint hx of parkinsons. [...] Kavon Sams In 3 days 07/19/2023 EST [facility] Business (1) Additional Instructions: Patient Education [...] made to ensure accuracy, however, inadvertently computerized bench worker binding mistakes may be present. Appropriate healthcare PPE [...] 11:50:00) MC (more content not included)... Normal [facility] Comment on above: Result Comment: Elec tronically [...] Consider working with a physical therapist or net trainer who can develop an exercise plan to help you gain muscle strength. General instructions ? Take cpzq-wdr-fmddvua and prescription medicines only as told by [...] Reviewed: 04/30/2022 Elsevier Patient Education ? 2022 [employer] Normal [facility] ED Patient Summaryon 024 ED Patient Summary (Inserted Image. Jenni ble to display) [address] [address] Patient Discharge Instructions Person Information Name: JUDITH KHAN Age: 78 Years Arrival Date: 07/16/2023 11:33:16 Discharge Diagnosis: Weakness Primary Care Physician: Kavon Sams MD Provider Information Primary Provider: Demarco Beaver DO [employer] Analyst:Leighton Fernandes PA-C The exam and treatment you received in the Emergency Department were for an urgent problem and are not intended as complete care. It is important that you follow up with a doctor, nurse practitioner, or physician?s maintenance assistant for ongoing care. If your symptoms become worse or you do not improve as expected and you are unable to reach your usual health care provider, you should return to the Emergency Department. We are available 24 hours a day. JUDITH KHAN has been given the following list of patient education materials, prescriptions and follow-up instructions: Follow-up Instructions: With: Address: When: Kavon Flaquita [address] [place] [address], [place] [address] Business (1) In 3 days 07/19/2023 In the event that this physician does not participate in your insurance network, please consult with your insurance company to find a nearby participating provider. Patient Education Materials: Weakness A MESSAGE TO ALL PATIENTS REGARDING OPIOIDS PRESCRIPTION OPIOIDS: WHAT YOU NEED TO KNOW Prescription opioids can be used to help relieve oosxmzux-dz-sqqoef pain and are often prescribed following a [...] be struggling with addiction, tell your health manager care and ask for guidance or call [facility] National Helpline at 8-718-806-TLKU. v Source: [place] Department of Health a (more content not included)... Normal [facility] HEMATOLOGYOrdered By: SYSTEM SYSTEM on 07-16-2023 Basophil Absolute 0.1 E9/L Normal 0.0 - 0.2 E9/L Remisol Heme Basophils/100 WBC (Bld) 1.1 % Normal 0.0 - 2.0 % Remisol Heme Eos Absolute 0.2 E9/L Normal 0.0 - 0.5 E9/L Remisol Heme Eosinophils/100 WBC (Bld) 1.7 % Normal 0.0 - 8.0 % Remisol Heme Erythrocyte distribution width (RBC) [Ratio] 13.5 % Normal 10.9 - 14.2 % Remisol Heme Hematocrit (Bld) [Volume fraction] 43.0 % Normal 34.0 - 46.0 % Remisol Heme Hemoglobin (Bld) [Mass/Vol] 14.3 g/dL Normal 12.0 - 16.0 gm/dL Remisol Heme Lymph Absolute 3.4 E9/L Normal 1.0 - 4.0 E9/L Remisol Heme Lymphocytes/100 WBC (Bld) 38.0 % Normal 14.0 - 50.0 % Remisol Heme MCH (RBC) [Entitic mass] 30.9 pg Normal 27.0 - 34.0 pg Remisol Heme MCHC (RBC) [Mass/Vol] 33.0 g/dL Normal 31.4 - 36.0 gm/dL Remisol Heme MCV (RBC) [Entitic vol] 93.5 fL Normal 80.0 - 100.0 fL Remisol Heme Rowan Absolute 1.2 E9/L High 0.2 - 1.0 E9/L Remisol Heme Monocytes/100 WBC (Bld) 12.9 % Normal 4.0 - 14.0 % Remisol Heme Neutro Absolute 4.2 E9/L Normal 2.0 - 7.5 E9/L Remisol Heme Neutro Auto 46.3 % Normal 36.0 - 75.0 % Remisol Heme Platelet 325.0 E9/L Normal 150.0 - 500.0 E9/L Remisol Heme Platelet mean volume (Bld) [Entitic vol] 9.3 fL Normal 6.4 - 10.8 fL Remisol Heme RBC 4.6 E12/L Normal 4.3 - 5.9 E12/L Remisol Heme WBC 9.0 E9/L Normal 4.0 - 11.0 E9/L Remisol Heme Troponin 0 Hr.on 07-16-2023 Troponin 21.20 pg/mL Normal 10.10-27.10 [facility] Comment on above: Result Comment: The 95% CI (Confidence Interval) PPV (Positive Predictive Value) for myocardial infarction in females is 38 pg/mL, in males 51 pg/mL. The results should be used in conjunction with clinical conditions of myocardial infarction. (Access High Sensitivity Troponin I Instructions For Use, [employer], January 2018) Performed By: #### 2 [id number], [id number] #### [facility] [address] [place] [address] Troponin 3 Hr.on 07-16-2023 Troponin 19.60 pg/mL Normal 10.10-27.10 [facility] Comment on above: Result Comment: The 95% CI (Confidence Interval) PPV (Positive Predictive Value) for myocardial infarction in females is 38 pg/mL, in males 51 pg/mL. The results should be used in conjunction with clinical conditions of myocardial infarction. (Access High Sensitivity Troponin I Instructions For Use, [employer], January 2018) Performed By: #### 1 [id number] #### [facility] [address] [place] [address] UA With Cult Reflexon 2023 Bacteria LM Ql (Urine sed) TRACE Normal Trace [facility] Comment on above: Performed By: #### 2 483876, [id number] #### [facility] [address] [place] [address] Bilirubin Ql (U) Negative Normal Negative [facility] Comment on above: Performed By: #### 2 642551, [id number] #### [facility] [address] [place] [address] Clarity (U) CLEAR Normal Clear [facility] Comment on above: Performed By: #### 2 283786, [id number] #### [facility] [address] [place] [address] Color (U) YELLOW Normal Yellow [facility] Comment on above: Performed By: #### 2 747334, [id number] #### [facility] [address] [place] [address] Crystals LM Ql (Urine sed) Present Normal [facility] Comment on above: Performed By: #### 2 839950, [id number] #### [facility] [address] [place] [address] Epithelial cells.squamous LM.HPF (Urine sed) [#/Area] 0-2 Normal 0-2 [facility] Comment on above: Performed By: #### 2 446795, [id number] #### [facility] [address] [place] [address] Glucose Test strip (U) [Mass/Vol] Negative Normal Negative [facility] Comment on above: Performed By: #### 2 700080, [id number] #### [facility] [address] [place] [address] Hemoglobin Ql (U) Negative Normal Negative [facility] Comment on above: Performed By: #### 2 702232, [id number] #### [facility] [address] [place] [address] Ketones (U) [Mass/Vol] Negative Normal Negative [facility] Comment on above: Performed By: #### 2 097839, [id number] #### [facility] [address] [place] [address] Flat.plasma/Lithi um.RBC (Bld) [Mass ratio] 0-3 Normal 0-3 [facility] Comment on above: Performed By: #### 2 928840, [id number] #### [facility] [address] [place] [address] Nitrite Ql (U) Negative Normal Negative [facility] Comment on above: Performed By: #### 2 380795, [id number] #### [facility] [address] [place] [address] pH (U) 7.0 [pH] Invalid Interpretation Code 5.0-9.0 [facility] Comment on above: Performed By: #### 2 725533, [id number] #### [facility] [address] [place] [address] Protein (U) [Mass/Vol] Negative Normal Negative [facility] Comment on above: Performed By: #### 2 964033, [id number] #### [facility] [address] [place] [address] Specific gravity (U) [Rel density] 1.015 Invalid Interpretation Code 1.005-1.030 [facility] Comment on above: Performed By: #### 2 650859, [id number] #### [facility] [address] [place] [address] Type of Urine collection method Clean Catch Normal [facility] Comment on above: Performed By: #### 2 483860, [id number] #### [facility] [address] [place] [address] Urobilinogen Qn (U) 0.2 {Phoebe'U}/dL Normal 0.0-1.0 [facility] Comment on above: Performed By: #### 2 904798, [id number] #### [facility] [address] [place] [address] WBC Auto Ql (U) 1+ Abnormal Negative [facility] Comment on above: Performed By: #### 2 047316, [id number] #### [facility] [address] [place] [address] WBC LM.HPF (Urine sed) [#/Area] 0-5 Normal 0-5 [facility] Comment on above: Performed By: #### 2 962730, [id number] #### [facility] [address] [place] [address] URINALYSISOrdered By: Ravi Guzman on 07-16-2023 Bacteria LM Ql (Urine sed) Trace /HPF Normal Trace/HPF [facility] UA Auto SS Bilirubin Ql (U) Negative (07/16/23 12:49 PM) Normal Negative [facility] UA Auto SS Clarity (U) Clear (07/16/23 12:49 PM) Normal Clear [facility] UA Auto SS Color (U) Yellow (07/16/23 12:49 PM) Normal Yellow [facility] UA Auto SS Crystals LM Ql (Urine sed) Present (07/16/23 12:49 PM) Normal [facility] UA Auto SS Epithelial cells.squamous LM.HPF (Urine sed) [#/Area] 0-2 /HPF Normal 0-2/HPF [facility] UA Auto SS Glucose Test strip (U) [Mass/Vol] Negative (07/16/23 12:49 PM) Normal Negative [facility] UA Auto SS Hemoglobin Ql (U) Negative (07/16/23 12:49 PM) Normal Negative [facility] UA Auto SS Ketones (U) [Mass/Vol] Negative (07/16/23 12:49 PM) Normal Negative [facility] UA Auto SS Flat.plasma/Lithi um.RBC (Bld) [Mass ratio] 0-3 /HPF Normal 0-3/HPF [facility] UA Auto SS Nitrite Ql (U) Negative (07/16/23 12:49 PM) Normal Negative [facility] UA Auto SS pH (U) 7.0 *NA* (07/16/23 12:49 PM) Invalid Interpretation Code 5.0 - 9.0 [facility] UA Auto SS Protein (U) [Mass/Vol] Negative (07/16/23 12:49 PM) Normal Negative [facility] UA Auto SS Specific gravity (U) [Rel density] 1.015 *NA* (07/16/23 12:49 PM) Invalid Interpretation Code 1.005 - 1.030 [facility] UA Auto SS UA Spec Desc Clean Catch (07/16/23 12:49 PM) Normal [facility] UA Auto SS Urobilinogen Qn (U) 0.8847588 {Phoebe'U}/dL Normal 0.0 - 1.0 EU/dL [facility] UA Auto SS WBC Auto Ql (U) 1+ *ABN* (07/16/23 12:49 PM) Invalid Interpretation Code Negative [facility] UA Auto SS WBC LM.HPF (Urine sed) [#/Area] 0-5 /HPF Normal 0-5/HPF [facility] UA Auto SS eGFRon 07-16-2023 eGFR 66 mL/min/1.73 m2 Normal >=59 [facility] Comment on above: Order Comment: Order added by Discern Expert. Performed By: #### 2 001874, [id number] #### [facility] [address] [address] Office Visiton 07-06-2023 Follow-up visit [id number] BillDonato raffy Davis 1945 F Date Provider Department Center 07/06/2023 MILA SORIA Mary Kay Mike Family History Problem Relation Age of Onset Stroke Mother Stroke Brother Other Mother's Sister Coronary artery disease Mother's Sister Stroke Maternal Grandmother Family Status - Relation Status Age at Mother Brother Mother's Sister Maternal Grandmother Level of Service:07241 [facility] OFFICE/OUTPATIENT ESTABLISHED MOD MDM 30 MIN Normal [facility] C Urineon 06-25-2023 Bacteria identified Cx [...] Locations R1: This test was performed at: [facility], [address] [place] [address], [address]- , , Normal [facility] Comment on above: Performed By: #### 1 [id number], [id number] #### [facility] [address] [place] [address] UA With Cult Reflexon 2023 UA Spec Desc Catheter Normal [facility] Comment on above: Result Comment: Mini cath specimen Performed By: #### 1 [id number], [id number] #### [facility] [address] [place] [address] Discharge Instructionson Discharge Instructions [id number] Normal [facility] Message from Medicareon 06-11 Message from Medicare [id number]#1.00TIFF Normal [facility] Auto Diffon 06-23-2023 Basophils/100 WBC (Bld) 0.4 % Normal 0.0-2.0 [facility] Comment on above: Order Comment: Order Added by Discern Expert. Performed By: #### 2 342086, [id number] #### [facility] [address] [place] [address] Basophils/Leukocytes Auto (Bld) [Pure # fraction] 0.1 E9/L Normal 0.0-0.2 [facility] Comment on above: Order Comment: Order Added by Discern Expert. Performed By: #### 2 021375, [id number] #### [facility] [address] [place] [address] Eosinophils/100 WBC (Bld) 0.8 % Normal 0.0-8.0 [facility] Comment on above: Order Comment: Order Added by Discern Expert. Performed By: #### 2 569433, [id number] #### [facility] [address] [place] [address] Eosinophils/Leukocyt es Auto (Bld) [Pure # fraction] 0.1 E9/L Normal 0.0-0.5 [facility] Comment on above: Order Comment: Order Added by Discern Expert. Performed By: #### 2 076794, [id number] #### [facility] [address] [place] [address] Lymphocytes/100 WBC (Bld) 15.1 % Normal 14.0-50.0 [facility] Comment on above: Order Comment: Order Added by Discern Expert. Performed By: #### 2 000019, [id number] #### [facility] [address] [place] [address] Lymphocytes/Leukocyt es Auto (Bld) [Pure # fraction] 2.2 E9/L Normal 1.0-4.0 [facility] Comment on above: Order Comment: Order Added by Discern Expert. Performed By: #### 2 496601, [id number] #### [facility] [address] [place] [address] Monocytes/100 WBC (Bld) 11.3 % Normal 4.0-14.0 [facility] Comment on above: Order Comment: Order Added by Discern Expert. Performed By: #### 2 790984, [id number] #### [facility] [address] [place] [address] Monocytes/Leukocytes Auto (Bld) [Pure # fraction] 1.6 E9/L High 0.2-1.0 [facility] Comment on above: Order Comment: Order Added by Discern Expert. Performed By: #### 2 806623, [id number] #### [facility] [address] [place] [address] Neutrophils/100 WBC (Bld) 72.4 % Normal 36.0-75.0 [facility] Comment on above: Order Comment: Order Added by Discern Expert. Performed By: #### 2 330735, [id number] #### [facility] [address] [place] [address] Neutrophils/Leukocyt es Auto (Bld) [Pure # fraction] 10.5 E9/L High 2.0-7.5 [facility] Comment on above: Order Comment: Order Added by Discern Expert. Performed By: #### 2 123811, [id number] #### [facility] [address] [place] [address] BMPon 06-23-2023 Anion gap [Moles/Vol] 13 mmol/L Normal 6-16 [facility] Comment on above: Performed By: #### 2 281142, [id number] #### [facility] [address] [place] [address] BUN/Creat Ratio 20 No Units Normal 10-20 [facility] Comment on above: Performed By: #### 2 215840, [id number] #### [facility] [address] [place] [address] Calcium [Mass/Vol] 10.7 mg/dL Normal 8.9-11.1 [facility] Comment on above: Performed By: #### 2 317739, [id number] #### [facility] [address] [place] [address] Chloride [Moles/Vol] 103 mmol/L Normal 101-111 [facility] Comment on above: Performed By: #### 2 738819, [id number] #### [facility] [address] [place] [address] CO2 [Moles/Vol] 25 mmol/L Normal 21-31 [facility] Comment on above: Performed By: #### 2 685958, 40789629 #### [facility] [address] [place] [address] Creatinine [Mass/Vol] 0.9 mg/dL Normal 0.5-1.3 [facility] Comment on above: Performed By: #### 2 055057, [id number] #### [facility] [address] [place] [address] Glucose [Mass/Vol] 98 mg/dL Normal 55-199 [facility] Comment on above: Performed By: #### 2 954009, 84114574 #### [facility] [address] [place] [address] Potassium [Moles/Vol] 3.5 mmol/L Normal 3.5-5.3 [facility] Comment on above: Performed By: #### 2 962788, [id number] #### [facility] [address] [place] [address] Sodium [Moles/Vol] 137 mmol/L Normal 135-145 [facility] Comment on above: Performed By: #### 2 364567, [id number] #### [facility] [address] [place] [address] Urea nitrogen [Mass/Vol] 18 mg/dL Normal 5-21 [facility] Comment on above: Performed By: #### 2 849186, [id number] #### [facility] [address] [place] [address] CBC w/ Auto Diffon 4 Erythrocyte distribution width (RBC) [Ratio] 13.6 % Normal 10.9-14.2 [facility] Comment on above: Performed By: #### 2 224144, [id number] #### [facility] [address] [place] [address] Hematocrit (Bld) [Volume fraction] 40.9 % Normal 34.0-46.0 [facility] Comment on above: Performed By: #### 2 836435, [id number] #### [facility] [address] [place] [address] Hemoglobin (Bld) [Mass/Vol] 13.7 g/dL Normal 12.0-16.0 [facility] Comment on above: Performed By: #### 2 156244, [id number] #### [facility] [address] [place] [address] MCH (RBC) [Entitic mass] 30.8 pg Normal 27.0-34.0 [facility] Comment on above: Performed By: #### 2 410311, 40557165 #### [facility] [address] [place] [address] MCHC (RBC) [Mass/Vol] 33.4 g/dL Normal 31.4-36.0 [facility] Comment on above: Performed By: #### 2 209001, [id number] #### [facility] [address] [place] [address] MCV (RBC) [Entitic vol] 92.2 fL Normal 80.0-100.0 [facility] Comment on above: Performed By: #### 2 417138, [id number] #### [facility] [address] [place] [address] Platelet mean volume (Bld) [Entitic vol] 9.9 fL Normal 6.4-10.8 [facility] Comment on above: Performed By: #### 2 521964, [id number] #### [facility] [address] [place] [address] Platelets (Bld) [#/Vol] 301.0 E9/L Normal 150.0-500.0 [facility] Comment on above: Performed By: #### 2 603807, [id number] #### [facility] [address] [place] [address] RBC (Bld) [#/Vol] 4.4 E12/L Normal 4.3-5.9 [facility] Comment on above: Performed By: #### 2 268982, [id number] #### [facility] [address] [place] [address] WBC corrected for nucl RBC Auto (Bld) [#/Vol] 14.5 E9/L High 4.0-11.0 [facility] Comment on above: Performed By: #### 2 800781, [id number] #### [facility] [address] [place] [address] CHEMISTRYOrdered By: SYSTEM SYSTEM on 06-23-2023 Troponin [...] High Sensitivity Troponin I Instructions For Use, [employer], January 2018) Troponin 183.20 pg/mL Invalid Interpretation Code 10.10 - 27.10 pg/mL Rem[facility] Chem Comment on above: Result Comment: Crit ical Result Verified by Previous Result Critical Result I_TnIHS:183.2 Called to and read back by: JAIMEE MUNSON at: 06/23/2023 09:12:46 by:CMK Interpretive Data: T he 95% CI (Confidence Interval) PPV (Positive Predictive Value) for myocardial infarction in females is 38 pg/mL, in males 51 pg/mL. The results should be used in conjunction with clinical conditions of myocardial infarction. (Access High Sensitivity Troponin I Instructions For Use, [employer], January 2018) Troponin 116.80 pg/mL Invalid Interpretation [...] 96 mg/dL Normal 55 - 99 mg/dL [facility] POC Subsection Comment on above: Result Comment: Bonnie jamil RN/ POC Device SN [id number] Invalid Interpretation Code [facility] POC Subsection POC User ID [id number] 1 Invalid Interpretation Code [facility] POC Subsection POC Username JOSH GERONIMO Invalid Interpretation Code [facility] POC Subsection COAGULATIONOrdered By: Hoang Chris on 06-23-2023 aPTT Coag (PPP) [Time] 30.4 s Normal 25.1 - 36.5 second(s) [facility] Auto Coag Comment on above: Interpretive Data: [...] the same coagulation reagent and instrumentation as [facility]. Currently there are no coagulation studies available worldwide for children to 14 days, and no normal ranges. Heparin therapeutic range (represented by Anti-Factor Xa activity of 0.2 - 0.4 U/mL) corresponds to PTT of 56.6 - 109.0 sec. INR Coag (PPP) [Relative time] 1.0 {INR} Invalid Interpretation Code [facility] Auto Coag Comment on above: Interpretive Data: I NR results are specifically intended to assess patients stabilized on long-term Anticoagulation therapy suggested INR s Less Intensive Anticoagulation 2.0 3.0 Conventional Range 3.0 4.5 PT Coag (PPP) [Time] 11.7 s Normal 9.4 - 1 2.5 second(s) [facility] Auto Coag Comment on above: Interpretive Data: [...] the same coagulation reagent and instrumentation as [facility]. Currently there are no coagulation studies available [...] Technologist: YOLY Technical Comments Contrast: None Normal [facility] Capillary Glucose POCon 06-11 Glucose [Mass/Vol] 96 mg/dL Normal 55-99 [facility] Comment on above: Result Comment: Bonnie jamil RN/ Performed By: #### 2 [id number] #### [facility] [address] [place] [address] Consent for Treatmenton 06-11 Consent for Treatment [id number] Normal [facility] Discharge Note-Nursingon Discharge Note-Nursing JUDITH KHAN :1945 Visit Date:06/23/2023 Inpatient Discharge Instructions Your Care Team Admitting Physician - Mela Espinal MD Consulting Physician - Ramiro Louise MD Reason [...] Doctor Event Name Event Result Pharmacy Information [facility] Follow Up Appointments after Discharge Follow Up with Dani HERRERA, JOANNA Kauffman When: Within 1 to 2 weeks Where: [facility] [place] [address]- Medications What How Much When Instructions Next [...] Hct: 40.9 % (06/23/23:55:00) BUN/Creat Ratio: 20 (06/23/23:55:00) MCV: 92.2 fL (06/23/23:55:00) Sodium Lvl: 137 [...] days a (more content not included)... Normal [facility] ED Clinical Summaryon 2023 ED Clinical Summary (Inserted Image. Jenni ble to display) [address] [address] ED Clinical Summary Person Information Name: JUDITH KHAN [facility] Age: 78 Years : 1945 Sex: Female Language: Argentine PCP: Kavon Sams MD Marital Status: Visit Id: Visit Reason: Potential stroke; POSS STROKE Speciality: Acuity: 2 Enc Type: Observation Med Service: Emergency Arrival: 06/23/2023 01:35:17 Discharge: LOS: 000 03:53 Checkin: 06/23/2023 01:35:17 Checkout: 06/23/2023 05:28:48 Dispo Type: Admitted as IP to this [facility] EVENTS: Event Name Event Status Request [...] 04:30:21 Meds Admin Request 06/23/2023 04:30:49 ADDRESS: [address] [place] [phone] PHYS DOC NOTES: MEDICAL INFORMATION: Prescriptions Given: [...] 4:Elevated troponin; 5:Hypertension; 6:High cholesterol; 7:Parkinsons Normal [facility] ED Note-Physicianon 06-23-19 ED Note-Physician Basic Information [...] both correctly = 0 Open and close 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 Normal [facility] Comment on above: Result Comment: Elec tronically Signed By: Thea Stacy, Augie Tucker.andreia\Date and Time Signed: 06/23/23 04:21 EST ED Patient Education Noteon 06-23-2023 ED Patient Education Note Normal [facility] ED Patient Summaryon 024 ED Patient Summary (Inserted Image. Jenni ble to display) [address] [address] Patient Discharge Instructions Person Information Name: JUDITH KHAN Age: 78 Years Arrival Date: 06/23/2023 01:35:17 Discharge Diagnosis: 1:Right sided weakness; 2:Hypoxia; 3:Urinary tract infection; 4:Elevated troponin; 5:Hypertension; 6:High cholesterol; 7:Parkinsons Primary Care Physician: Kavon Sams MD Provider Information Primary Provider: Augie Sidhu M.D. [employer] Analyst:None The exam and treatment you received in the Emergency Department were for an urgent problem and are not intended as complete care. It is important that you follow up with a doctor, nurse practitioner, or physician?s maintenance assistant for ongoing care. If your symptoms [...] opioids can be used to help relieve qzjttzfj-nm-tflaqt pain and are often prescribed following a [...] be struggling with addiction, tell your health manager care and ask for guidance or call [employer]?S National Helpline at 1-076-224-HELP. v Source: [place] Department of Health and Human Services/Center for Disease (more content not included)... [facility] [facility] HEMATOLOGYOrdered By: SYSTEM SYSTEM on 06-23-2023 Basophils/100 [...] 14.5 E9/L High 4.0 - 11.0 E9/L [facility] HemeAutoSS Hep Func Panelon 06-23-2023 Albumin [Mass/Vol] 4.1 g/dL Normal 3.3-5.0 [facility] Comment on above: Performed By: #### 2 [id number], [id number] #### [facility] [address] [place] [address] Albumin/Globulin [Mass ratio] 1.7 {ratio} Normal 1.1-2.2 [facility] Comment on above: Performed By: #### 2 [id number], [id number] #### [facility] [address] [place] [address] Alk Phos 80 Int._Unit/L Normal 21-98 [facility] Comment on above: Performed By: #### 2 722353, [id number] #### [facility] [address] [place] [address] ALT 10 Int._Unit/L Normal 6-46 [facility] Comment on above: Performed By: #### 2 [id number], [id number] #### [facility] [address] [place] [address] AST 16 Int._Unit/L Normal 5-43 [facility] Comment on above: Performed By: #### 2 501374, [id number] #### [facility] [address] [place] [address] Bili Direct 0.1 mg/dL Normal 0.0-0.4 [facility] Comment on above: Performed By: #### 2 233921, [id number] #### [facility] [address] [place] [address] Bili Indirect 0.5 mg/dL Normal 0.1-0.9 [facility] Comment on above: Performed By: #### 2 117233, [id number] #### [facility] [address] [place] [address] Bili Total 0.6 mg/dL Normal 0.0-1.1 [facility] Comment on above: Performed By: #### 2 241177, [id number] #### [facility] [address] [place] [address] Globulin (S) [Mass/Vol] 2.4 g/dL Normal 1.4-4.0 [facility] Comment on above: Performed By: #### 2 794938, [id number] #### [facility] [address] [place] [address] Protein [Mass/Vol] 6.5 g/dL Normal 6.0-7.8 [facility] Comment on above: Performed By: #### 2 528204, [id number] #### [facility] [address] [place] [address] Interdisciplinary Note - Bobby n 06-23-2023 Interdisciplinary [...] Recommend Out-pt. OT eval. for Parkinson's. Normal [facility] Interdisciplinary Note - Spe ech Languageon 06-23-2023 [...] further ST needs at this time. Normal [facility] Lactic Acidon 06-23-2023 Lactic Acid Lvl 1.1 mmol/L Normal 0.5-2.2 [facility] Comment on above: Performed By: #### 2 [id number], [id number] #### [facility] [address] [place] [address] MICRO OTHER TESTSOrdered By: Hoang Chris on 06-23-2023 Rapid COV Int NEG Ctl Pass (06/23/23 2:12 AM) Normal [facility] Man Sero Rapid COV Int POS Ctl Pass (06/23/23 2:12 AM) Normal [facility] Sero SARS-CoV+SARS-CoV-2 (COVID-19) Ag IA.rapid Ql (Resp) Not Detected 11 (06/23/23 2:12 AM) Normal Not Detected [facility] Man Sero Comment on above: Interpretive Data: Bob melendez [employer] Veritor System for Rapid Detection of SARS-CoV-2 [...] 06-23-2023 Magnesium [Mass/Vol] 1.8 mg/dL Normal 1.3-2.4 [facility] Comment on above: Performed By: #### 2 897150, [id number] #### [facility] [address] [place] [address] Message from Medicareon 06-11 Message from Medicare [id number]#1.00TIFF Normal [facility] Monitor Recordon 06-23-2023 Monitor Record [id number]#1.00TIFF Normal [facility] Monitor Record [id number]#1.00TIFF Normal [facility] Monitor Record [id number]#1.00TIFF Normal [facility] Monitor Record [id number]#1.00TIFF Normal [facility] PT & PTTon 06-23-2023 aPTT Coag (PPP) [Time] 30.4 second(s) Normal 25.1-36.5 [facility] Comment on above: Result Comment: Para meter [...] the same coagulation reagent and instrumentation as [facility]. Currently there are no coagulation studies available worldwide for children to 14 days, and no normal ranges. Heparin therapeutic range (represented by Anti-Factor Xa activity of 0.2 - 0.4 U/mL) corresponds to PTT of 56.6 - 109.0 sec. Performed By: #### 2 [id number], [id number] #### [facility] [address] [place] [address] INR Coag (PPP) [Relative time] 1.0 {INR} Invalid Interpretation Code [facility] Comment on above: Result Comment: INR results are specifically intended to assess patients stabilized on long-term Anticoagulation therapy suggested INR?s ?Less Intensive Anticoagulation? 2.0 ? 3.0 Conventional Range 3.0 ? 4.5 Performed By: #### 2 920177, [id number] #### [facility] [address] [place] [address] PT Coag (PPP) [Time] 11.7 second(s) Normal 9.4-12.5 [facility] Comment on above: Result Comment: 15 d [...] the same coagulation reagent and instrumentation as [facility]. Currently there are no coagulation studies available worldwide for children to 14 days, and no normal ranges. Performed By: #### 2 373051, [id number] #### [facility] [address] [place] [address] Patient Education - Texton 0 06-23-2023 Patient [...] about working with a physical therapist or net trainer to help you get stronger. General instructions ? Take [id number] and prescription medicines only as told by [...] provider. Document Revised: 04/30/2022 Document Reviewed: 04/30/2022 exsulin Patient Education ? 2022 [employer]. Obstetrics and Gynecology Urinary Tract Infection, Adult [...] (sexually transmitted (more content not included)... Normal [facility] Pre-Arrival Noteon Pre-Arrival Note Pre-Arrival Summary Name: , blaine Current Date: 06/23/2023 01:37:08 EST Gender: Date of : Age: Pre-Arrival Type: EMS ETA: 06/23/2023 01:53:00 EST Primary Care Physician: Presenting Problem: possible stroke Pre-Arrival User: Tejal Gold RN Referring Source: Location: [place] Completion Date/Time: 06/23/2023 01:23:00 [facility] Emergency Department Pre-Hospital Report Form Vital Signs: Pre-Hospital Report: Treatment in Route: Response to Treatment: Misc. Issues: Normal [facility] RAD - Preliminary Cat Scan R eporton 06-23-2023 RAD - Preliminary Cat Scan Report [id number]#1.00TIFF Normal [facility] Rapid COVID Antigen ([facility])on 06-23-2023 Rapid COV Int NEG Ctl Pass Normal [facility] Comment on above: Performed By: #### 2 [id number], [id number] #### [facility] [address] [place] [address] Rapid COV Int POS Ctl Pass Normal [facility] Comment on above: Performed By: #### 2 956101, [id number] #### [facility] [address] [place] [address] SARS-CoV+SARS-CoV-2 (COVID-19) Ag IA.rapid Ql (Resp) Not detected Normal Not Detected [facility] Comment on above: Result Comment: The [employer] System for Rapid Detection of SARS-CoV-2 is [...] For in vitro diagnostic use. In the [facility], only for use under an Emergency Use [...] or revoked sooner. Performed By: #### 2 356826, [id number] #### [facility] [address] [place] [address] TSH With T4fr Reflexon 06-23 TSH Qn 0.68 m[IU]/L Normal 0.34-5.60 [facility] Comment on above: Performed By: #### 2 929868, [id number] #### [facility] [address] [place] [address] Troponin 0 Hr.on 06-23-2023 Troponin 42.70 pg/mL Abnormal 10.10-27.10 [facility] Comment on above: Result Comment: Crit ical [...] Sensitivity Troponin I Instructions For Use, Jacques Mikado, January 2018) Performed By: #### 2 924266, [id number] #### [facility] [address] [place] [address] Troponin 3 Hr.on 06-23-2023 Troponin 116.80 pg/mL Abnormal 10.10-27.10 [facility] Comment on above: Result Comment: Crit ical Result Verified by Repeat Analysis Critical Result I_TnIHS:116.8 Called to and read back by: ELIAN QUIGLEY at: 06/23/2023 06:19:20 by:SYDIN The 95% CI (Confidence Interval) PPV (Positive Predictive Value) for myocardial infarction in females is 38 pg/mL, in males 51 pg/mL. The results should be used in conjunction with clinical conditions of myocardial infarction. (Access High Sensitivity Troponin I Instructions For Use, [employer], January 2018) Performed By: #### 1 [id number] #### [facility] [address] [place] [address] Troponin 6 Hr.on 06-23-2023 Troponin 183.20 pg/mL Abnormal 10.10-27.10 [facility] Comment on above: Result Comment: Crit ical Result Verified by Previous Result Critical Result I_TnIHS:183.2 Called to and read back by: JAIMEE MUNSON at: 06/23/2023 09:12:46 by:CMK The 95% CI (Confidence Interval) PPV (Positive Predictive Value) for myocardial infarction in females is 38 pg/mL, in males 51 pg/mL. The results should be used in conjunction with clinical conditions of myocardial infarction. (Access High Sensitivity Troponin I Instructions For Use, [employer], January 2018) Performed By: #### 1 [id number] #### [facility] [address] [place] [address] Troponin 9 Hr.on 06-23-2023 Troponin 187.00 pg/mL Abnormal 10.10-27.10 [facility] Comment on above: Result Comment: Crit ical [...] High Sensitivity Troponin I Instructions For Use, [employer], January 2018) Performed By: #### 1 [id number] ####[facility] [address] [place] [address] UA With Cult Reflexon 2023 Bacteria LM Ql (Urine sed) 1+ /HPF Abnormal Trace [facility] Comment on above: Performed By: #### 1 [id number], [id number] #### [facility] [address] [place] [address] Bilirubin Ql (U) Negative Normal Negative [facility] Comment on above: Performed By: #### 1 3821870, [id number] #### [facility] [address] [place] [address] Clarity (U) SL CLOUDY Abnormal Clear [facility] Comment on above: Performed By: #### 1 4194031, [id number] #### [facility] [address] [place] [address] Color (U) YELLOW Normal Yellow [facility] Comment on above: Performed By: #### 1 [id number], [id number] #### [facility] [address] [place] [address] Epithelial cells.squamous LM.HPF (Urine sed) [#/Area] 0-2 Normal 0-2 [facility] Comment on above: Performed By: #### 1 1307002, [id number] #### [facility] [address] [place] [address] Glucose Test strip (U) [Mass/Vol] Negative Normal Negative [facility] Comment on above: Performed By: #### 1 0090103, [id number] #### [facility] [address] [place] [address] Hemoglobin Ql (U) Negative Normal Negative [facility] Comment on above: Performed By: #### 1 [id number], [id number] #### [facility] [address] [place] [address] Ketones (U) [Mass/Vol] Negative Normal Negative [facility] Comment on above: Performed By: #### 1 6217861, [id number] #### [facility] [address] [place] [address] Flat.plasma/Lithi um.RBC (Bld) [Mass ratio] 0-3 Normal 0-3 [facility] Comment on above: Performed By: #### 1 3000933, [id number] #### [facility] [address] [place] [address] Nitrite Ql (U) Negative Normal Negative [facility] Comment on above: Performed By: #### 1 3700979, 6683536 #### [facility] [address] [place] [address] pH (U) 7.5 [pH] Invalid Interpretation Code 5.0-9.0 [facility] Comment on above: Performed By: #### 1 3399292, [id number] #### [facility] [address] [place] [address] Protein (U) [Mass/Vol] Negative Normal Negative [facility] Comment on above: Performed By: #### 1 1450666, 0438301 #### [facility] [address] [place] [address] Specific gravity (U) [Rel density] 1.015 Invalid Interpretation Code 1.005-1.030 [facility] Comment on above: Performed By: #### 1 5152578, [id number] #### [facility] [address] [place] [address] Urobilinogen Qn (U) 0.2 {Phoebe'U}/dL Normal 0.0-1.0 [facility] Comment on above: Performed By: #### 1 [id number], [id number] #### [facility] [address] [place] [address] WBC Auto Ql (U) 1+ Abnormal Negative [facility] Comment on above: Performed By: #### 1 9702486, 3722583 #### [facility] [address] [place] [address] WBC LM.HPF (Urine sed) [#/Area] 6-15 Abnormal 0-5 [facility] Comment on above: Performed By: #### 1 1573947, [id number] #### [facility] [address] [place] [address] URINALYSISOrdered By: Hoang Chris on 06-23-2023 Bacteria LM Ql (Urine sed) 1+ /HPF Invalid Interpretation Code Trace/HPF FT UA Auto SS Bilirubin Ql (U) Negative (06/23/23 3:01 AM) Normal Negative [facility] UA Auto SS Clarity (U) Slightly Cloudy [...] AM) Normal Negative [facility] UA Auto SS Flat.plasma/Lithi um.RBC (Bld) [Mass ratio] 0-3 /HPF Normal [...] Desc Clean Catch (06/23/23 3:01 AM) Normal [facility] UA Auto SS Urobilinogen Qn (U) 0.8082193 {Phoebe'U}/dL Normal 0.0 - 1.0 EU/dL [facility] [...] mGy = na DAP = na Normal [facility] eGFRon 06-23-2023 GFR/1.73 sq M.predicted among non-blacks MDRD (S/P/Bld) [Vol rate/Area] mL/min/{1.73_m2} Normal >=59 [facility] Comment on above: Order Comment: Order added by Discern Expert. Performed By: #### 2 185959, [id number] #### [facility] [address] [place] [address] Creatinine (Bld) [Mass/Vol]O rdered By: Giovanni Gill on 05-15-2023 Creatinine [Mass/Vol] 1.0 mg/dL 0.6-1.3 [facility] Comment on above: ER/ESD physician is notified/shown all ISTAT results.Critical values may be confirmed by laboratory testing ifdeemed necessary by ER attending doctor. ISTAT XRay CREon 05-15-2023 Creatinine [Mass/Vol] 1.0 mg/dL Normal 0.6-1.3 [facility] Comment on above: Result Comment: ER/E SD physician is notified/shown all ISTAT results. Critical values may be confirmed by laboratory testing if deemed necessary by ER attending doctor. Performed By: #### I SCRE #### [facility] [address] ISTAT GFR 58.023 Normal [facility] Comment on above: Result Comment: PERF ORMED BY: [facility] [address] [place] [address] PATHOLOGIST [employer] MANAGER MARISOL AGUSTIN M.D. Performed By: #### I SCRE #### [facility] [address] [place] [id number] [facility] MR head/brain wo/w conon MR head/brain wo/w con [facility] Main [facility] [address] [place] [address] MRI Report Signed Patient: Judtih Khan MR#: [id number] : 1945 Acct:[id number] Age/Sex: 78 / F ADM Date: 05/15/23 Loc: MR Room: Type: [facility] Attending Dr: Giovanni COLIN Copies to: DIXIE Eng Ordering Provider: [...] Adeel Meyer M.D.05/15/2023 5:24 PM Dictation Location: [place] [address] Transcribed By: JOSELO 05/15/231723 Dictated By: Adeel Meyer II, MD 05/15/231718 Signed By: 05/15/231723 Normal [facility] No Panel InformationOrdered By: Giovanni Gill on 05-15-2023 Bedside Estimated GFR (eGFR) 58.023 [facility] 37on 01-12-2023 37 Hold metoprolol and see if fatigue levels improve Continue all other medications Monitor blood pressure 1-2 times a day and if it increases greater than 130/80 please call the office for medication adjustment, or for tachycardia/palpitations Normal [facility] Office Visiton 01-12-2023 Follow-up visit [id number] Donato Khan 1945 F Date Provider Department Center 01/12/2023 MILA SORIA [facility] Family History Problem Relation Age of Onset Stroke Mother Stroke Brother Other Mother's Sister Coronary artery disease Mother's Sister Stroke Maternal Grandmother Family Status - Relation Status Age at Mother Brother Mother's Sister Maternal Grandmother Level of Service:30725 [facility] OFFICE/OUTPATIENT ESTABLISHED LOW MDM 20-29 MIN Normal [facility] BNPon 10-09-2022 Natriuretic peptide B (Bld) [Mass/Vol] 90.0 pg/mL Normal <=1,800.0 [facility] Comment on above: Performed By: #### M G, CMP, TSH, T7, BNP #### [facility] [address] [place] [address] [address] Glenys [facility] CBC AUTO DIFFon 10-09-2022 BASO # 0.1 103/ul Normal 0.0-0.1 [facility] Comment on above: Performed By: #### M G, CMP, TSH, T7, BNP #### [facility] [address] [place], [place] [address] Dr. [facility]ys [facility] Basophils/100 WBC (Bld) 1.0 % Normal 0.2-2.0 [facility] Comment on above: Performed By: #### M G, CMP, TSH, T7, BNP #### [facility] [address] [place] [address] Dr. [facility]ys [facility] EO # 0.5 103/ul Normal 0.0-0.7 [facility] Comment on above: Performed By: #### M G, CMP, TSH, T7, BNP #### [facility] [address] [place] [address] Dr. Glenys Holly Eosinophils/100 WBC (Bld) 6.4 % Normal 0.9-7.0 [facility] Comment on above: Performed By: #### M G, CMP, TSH, T7, BNP #### [facility] [address] [place] [address] Dr. Glenys Holly Erythrocyte distribution width (RBC) [Ratio] 15.4 % Critically high 11.0-15.0 [facility] Comment on above: Performed By: #### M G, CMP, TSH, T7, BNP #### [facility] [address] [place] [address] Dr. Glenys Holly Hematocrit (Bld) [Volume fraction] 42.8 % Normal 36.0-48.0 [facility] Comment on above: Performed By: #### M G, CMP, TSH, T7, BNP #### [facility] [address] [place] [address] Dr. Glenys Holly Hemoglobin (Bld) [Mass/Vol] 14.1 g/dL Normal 12.0-16.0 [facility] Comment on above: Performed By: #### M G, CMP, TSH, T7, BNP #### [facility] [address] [place] [address] Dr. Glenys Holly IG # 0.01 10e3/ul Normal 0.00-0.03 [facility] Comment on above: Performed By: #### M G, CMP, TSH, T7, BNP #### [facility] [address] [place] [address] Dr. Glenys Holly IG % 0.1 % Normal 0.0-0.5 [facility] Comment on above: Performed By: #### M G, CMP, TSH, T7, BNP #### [facility] [address] [place] [address] Dr. Glenys Holly LYMPH # 3.3 103/ul Normal 1.2-3.8 [facility] Comment on above: Performed By: #### M G, CMP, TSH, T7, BNP #### [facility] [address] [place] [address] Dr. Glenys Holly Lymphocytes/100 WBC (Bld) 44.2 % Normal 20.5-60.0 [facility] Comment on above: Performed By: #### M G, CMP, TSH, T7, BNP #### [facility] [address] [place] [address] Dr. Glenys Holly MANUAL DIFF REQ NO Normal [facility] Comment on above: Performed By: #### M G, CMP, TSH, T7, BNP #### [facility] [address] [place] [address] Dr. Glenys Holly MCH (RBC) [Entitic mass] 30.3 pg Normal 26.7-34.0 [facility] Comment on above: Performed By: #### M G, CMP, TSH, T7, BNP #### [facility] [address] [place] [address] Dr. Glenys Holly MCHC (RBC) [Mass/Vol] 32.9 g/dL Normal 29.9-35.2 [facility] Comment on above: Performed By: #### M G, CMP, TSH, T7, BNP #### [facility] [address] [place] [address] Dr. Glenys Holly MCV (RBC) [Entitic vol] 92.0 fL Normal 81.0-99.0 [facility] Comment on above: Performed By: #### M G, CMP, TSH, T7, BNP #### [facility] [address] [place] [address] Dr. Glenys Holly MONO # 1.2 103/ul Critically high 0.3-0.8 [facility] Comment on above: Performed By: #### M G, CMP, TSH, T7, BNP #### [facility] [address] [place] [address] Dr. Glenys Holly Monocytes/100 WBC (Bld) 16.4 % Critically high 1.7-12.0 [facility] Comment on above: Performed By: #### M G, CMP, TSH, T7, BNP #### [facility] [address] [place] [address] [address] Glenys Holly NEUT # 2.4 103/ul Normal 1.4-6.5 [facility] Comment on above: Performed By: #### M G, CMP, TSH, T7, BNP #### [facility] [address] [place] [address] [address] Glenys Holly Neutrophils/100 WBC (Bld) 31.9 % Critically low 43.0-75.0 [facility] Comment on above: Performed By: #### M G, CMP, TSH, T7, BNP #### [facility] [address] [place] [address] [address] Glenys Holly Platelet mean volume (Bld) [Entitic vol] 10.3 fL Normal 9.5-13.5 [facility] Comment on above: Performed By: #### M G, CMP, TSH, T7, BNP #### [facility] [address] [place] [address] [address] Glenys Holly PLT 379 103/ul Normal 150-450 [facility] Comment on above: Performed By: #### M G, CMP, TSH, T7, BNP #### [facility] [address] [place] [address] [address] Glenys Holly RBC 4.65 106/ul Normal 4.20-5.40 [facility] Comment on above: Performed By: #### M G, CMP, TSH, T7, BNP #### [facility] [address] [place] [address] [address] Glenys Holly WBC 7.4 103/ul Normal 4.0-11.0 [facility] Comment on above: Performed By: #### M G, CMP, TSH, T7, BNP #### [facility] [address] [address] [address] Glenys Holly FERRITINon 05-01-2023 Ferritin [Mass/Vol] 68.0 ng/mL Normal 8.0-252.0 [facility] Comment on above: Performed By: #### F ERR, IRON, VITAD ####[facility] [id number] [place] [address]Dr. Glenys Holly FREE THYROXINE INDEX T7on FTI 3.10 Normal 1.30-4.50 [facility] Comment on above: Performed By: #### M G, CMP, TSH, T7, BNP #### [facility] [address] [place] [address] [address] Glenys Holly T3U 36.0 % Normal 30.0-39.0 [facility] Comment on above: Performed By: #### M G, CMP, TSH, T7, BNP #### [facility] [address] [place] [address] Dr. Glenys Holly T4 [Mass/Vol] 8.60 ug/dL Normal 4.80-13.90 [facility] Comment on above: Performed By: #### M G, CMP, TSH, T7, BNP #### [facility] [address] [place] [address] Dr. Glenys Holly IRONon 10-09-2022 Iron [Mass/Vol] 52.0 ug/dL Normal 50.0-170.0 [facility] Comment on above: Performed By: #### F ERR, IRON, VITAD ####[facility] [address] [place] [address]Dr. Glenys Holly MAGNESIUMon 10-09-2022 Magnesium [Mass/Vol] 2.0 mg/dL Normal 1.8-2.4 [facility] Comment on above: Performed By: #### M G, CMP, TSH, T7, BNP #### [facility] [address] [place] [address] Dr. Glenys Holly PROF 14(COMP METB)on 023 Albumin [Mass/Vol] 3.5 g/dL Normal 3.4-5.0 [facility] Comment on above: Performed By: #### M G, CMP, TSH, T7, BNP #### [facility] [address] [address] [address] Glenys Holly Albumin/Globulin [Mass ratio] 1.0 {ratio} Normal [facility] Comment on above: Performed By: #### M G, CMP, TSH, T7, BNP #### [facility] [address] [address] [address] Glenys Holly ALP [Catalytic activity/Vol] 134 U/L Critically high 46-116 [facility] Comment on above: Performed By: #### M G, CMP, TSH, T7, BNP #### [facility] [address] [address] [address] Glenys Holly ALT [Catalytic activity/Vol] 34 U/L Normal 14-59 [facility] Comment on above: Performed By: #### M G, CMP, TSH, T7, BNP #### [facility] [address] [place] [address] Dr. Glenys Holly Anion gap [Moles/Vol] 8.8 mmol/L Normal [facility] Comment on above: Performed By: #### M G, CMP, TSH, T7, BNP #### [facility] [address] [place] [address] Dr. Glenys Holly AST [Catalytic activity/Vol] 19 U/L Normal 15-37 [facility] Comment on above: Performed By: #### M G, CMP, TSH, T7, BNP #### [facility] [address] [place] [address] Dr. Glenys Holly Bilirubin [Mass/Vol] 0.2 mg/dL Normal 0.2-1.0 [facility] Comment on above: Performed By: #### M G, CMP, TSH, T7, BNP #### [facility] [address] [place] [address] Dr. Glenys Holly Calcium [Mass/Vol] 10.6 mg/dL Critically high 8.5-10.1 [facility] Comment on above: Performed By: #### M G, CMP, TSH, T7, BNP #### [facility] [address] [place] [address] Dr. Glenys Holly Chloride [Moles/Vol] 105 mmol/L Normal 98-107 [facility] Comment on above: Performed By: #### M G, CMP, TSH, T7, BNP #### [facility] [address] [place] [address] Dr. Glenys Holly CO2 [Moles/Vol] 30.0 mmol/L Normal 21.0-32.0 [facility] Comment on above: Performed By: #### M G, CMP, TSH, T7, BNP #### [facility] [address] [place] [address] Dr. Glenys Holly Creatinine [Mass/Vol] 0.86 mg/dL Normal 0.55-1.02 [facility] Comment on above: Performed By: #### M G, CMP, TSH, T7, BNP #### [facility] [address] [place] [address] Dr. Glenys Holly EGFR-AF MALIAN >60 Normal >=60 [facility] Comment on above: Performed By: #### M G, CMP, TSH, T7, BNP #### [facility] [address] [place] [address] Dr. Glenys Holly EGFR-NON AF MALIAN >60 Normal >=60 [facility] Comment on above: Performed By: #### M G, CMP, TSH, T7, BNP #### [facility] [address] [place] [address] Dr. Glenys Holly Globulin (S) [Mass/Vol] 3.5 g/dL Normal [facility] Comment on above: Performed By: #### M G, CMP, TSH, T7, BNP #### [facility] [address] [place] [address] Dr. Glenys Holly Glucose [Mass/Vol] 99 mg/dL Normal 74-106 [facility] Comment on above: Performed By: #### M G, CMP, TSH, T7, BNP #### [facility] [address] [place] [address] Dr. Glenys Holly Potassium [Moles/Vol] 3.8 mmol/L Normal 3.5-5.1 [facility] Comment on above: Performed By: #### M G, CMP, TSH, T7, BNP #### [facility] [address] [address] [address] Glenys Holly Protein [Mass/Vol] 7.0 g/dL Normal 6.4-8.2 [facility] Comment on above: Performed By: #### M G, CMP, TSH, T7, BNP #### [facility] [address] [address] [address] Glenys Holly Sodium [Moles/Vol] 140 mmol/L Normal 136-145 [facility] Comment on above: Performed By: #### M G, CMP, TSH, T7, BNP #### [facility] [address] [address] [address] Glenys Holly Urea nitrogen [Mass/Vol] 25.0 mg/dL Critically high 7.0-18.0 [facility] Comment on above: Performed By: #### M G, CMP, TSH, T7, BNP #### [facility] [address] [address] [address] Glenys Holly Urea nitrogen/Creatinine [Mass ratio] 29.1 mg/mg Normal [facility] Comment on above: Performed By: #### M G, CMP, TSH, T7, BNP #### [facility] [address] [address] [address] Glenys Holly TSHon 10-09-2022 TSH 1.720 uIU/mL Normal 0.358-3.740 [facility] Comment on above: Performed By: #### M G, CMP, TSH, T7, BNP #### [facility] [address] [address] [address] Glenys Holly VITAMIN D 25 OHon 10-09-2022 VIT D 25-OH 89.3 ng/mL Normal [facility] Comment on above: Performed By: #### F ERR, IRON, VITAD ####[facility] [address] [address]Dr. Glenys Holly VIT D RANGES SEE BELOW Normal [facility] Comment on above: Result Comment: <20 ng/mL Vit D deficient 20 - <30 ng/mL Vit D insufficient 30 - 100 ng/mL Vit D sufficient >100 ng/mL Potential Toxicity Performed By: #### F ERR, IRON, VITAD ####[facility] [address] [place], [place] [address]PfRatna Holly NM STRESS/REST MULTIon 05-24 NM STRESS/REST MULTI Patient: Shana KHAN Exam Date: 05/24/2022 : 1945 Gender:F Ordering : DR KAVON SAMS . Admission #: [id number] Family : Order #: [id number] CLICK HERE TO VIEW EXAM RADIOLOGY REPORT [...] M.D. on 05/24/2022 at 16:02 Normal [facility] BNPon 05-10-2022 Natriuretic peptide B (Bld) [Mass/Vol] 1305.0 pg/mL Normal <=1,800.0 [facility] Comment on above: Performed By: #### M G, CMP, TSH, T7, BNP #### [facility] [address] [place] [address] Dr. Glenys Holly CBC AUTO DIFFon 05-10-2022 BASO # 0.0 103/ul Normal 0.0-0.1 [facility] Comment on above: Performed By: #### M G, CMP, TSH, T7, BNP #### [facility] [address] [place] [address] Dr. Glenys Holly Basophils/100 WBC (Bld) 0.3 % Normal 0.2-2.0 [facility] Comment on above: Performed By: #### M G, CMP, TSH, T7, BNP #### [facility] [address] [place] [address] Dr. Glenys Holly EO # 0.0 103/ul Normal 0.0-0.7 [facility] Comment on above: Performed By: #### M G, CMP, TSH, T7, BNP #### [facility] [address] [place] [address] Dr. Glenys Holly Eosinophils/100 WBC (Bld) 0.1 % Critically low 0.9-7.0 [facility] Comment on above: Performed By: #### M G, CMP, TSH, T7, BNP #### [facility] [address] [place] [address] Dr. Glenys Holly Erythrocyte distribution width (RBC) [Ratio] 15.1 % Critically high 11.0-15.0 [facility] Comment on above: Performed By: #### M G, CMP, TSH, T7, BNP #### [facility] [address] [place] [address] Dr. Glenys Holly Hematocrit (Bld) [Volume fraction] 42.9 % Normal 36.0-48.0 [facility] Comment on above: Performed By: #### M G, CMP, TSH, T7, BNP #### [facility] [address] [place] [address] Dr. Glenys Holly Hemoglobin (Bld) [Mass/Vol] 14.6 g/dL Normal 12.0-16.0 [facility] Comment on above: Performed By: #### M G, CMP, TSH, T7, BNP #### [facility] [address] [place] [address] Dr. Glenys Holly IG # 0.05 10e3/ul Critically high 0.00-0.03 [facility] Comment on above: Performed By: #### M G, CMP, TSH, T7, BNP #### [facility] [address] [place] [address] Dr. Glenys Holly IG % 0.7 % Critically high 0.0-0.5 [facility] Comment on above: Performed By: #### M G, CMP, TSH, T7, BNP #### [facility] [address] [place] [address] Dr. Glenys Holly LYMPH # 1.6 103/ul Normal 1.2-3.8 [facility] Comment on above: Performed By: #### M G, CMP, TSH, T7, BNP #### [facility] [address] [place] [address] Dr. Glenys Holly Lymphocytes/100 WBC (Bld) 20.4 % Critically low 20.5-60.0 [facility] Comment on above: Performed By: #### M G, CMP, TSH, T7, BNP #### [facility] [address] [place] [address] Dr. Glenys Holly MANUAL DIFF REQ NO Normal [facility] Comment on above: Performed By: #### M G, CMP, TSH, T7, BNP #### [facility] [address] [place] [address] Dr. Glenys Holly MCH (RBC) [Entitic mass] 29.9 pg Normal 26.7-34.0 [facility] Comment on above: Performed By: #### M G, CMP, TSH, T7, BNP #### [facility] [address] [place] [address] Dr. Glenys Holly MCHC (RBC) [Mass/Vol] 34.0 g/dL Normal 29.9-35.2 [facility] Comment on above: Performed By: #### M G, CMP, TSH, T7, BNP #### [facility] [address] [place] [address] Dr. Glenys Holly MCV (RBC) [Entitic vol] 87.9 fL Normal 81.0-99.0 [facility] Comment on above: Performed By: #### M G, CMP, TSH, T7, BNP #### [facility] [address] [place] [address] Dr. Glenys Holly MONO # 0.7 103/ul Normal 0.3-0.8 [facility] Comment on above: Performed By: #### M G, CMP, TSH, T7, BNP #### [facility] [address] [place] [address] Dr. Glenys Holly Monocytes/100 WBC (Bld) 9.5 % Normal 1.7-12.0 [facility] Comment on above: Performed By: #### M G, CMP, TSH, T7, BNP #### [facility] [address] [place] [address] Dr. Glenys Holly NEUT # 5.2 103/ul Normal 1.4-6.5 [facility] Comment on above: Performed By: #### M G, CMP, TSH, T7, BNP #### [facility] [address] [place] [address] Dr. Glenys Holly Neutrophils/100 WBC (Bld) 69.0 % Normal 43.0-75.0 [facility] Comment on above: Performed By: #### M G, CMP, TSH, T7, BNP #### [facility] [address] [place] [address] Dr. Glenys Holly Platelet mean volume (Bld) [Entitic vol] 11.2 fL Normal 9.5-13.5 [facility] Comment on above: Performed By: #### M G, CMP, TSH, T7, BNP #### [facility] [address] [place] [address] Dr. Glenys Holly PLT 349 103/ul Normal 150-450 [facility] Comment on above: Performed By: #### M G, CMP, TSH, T7, BNP #### [facility] [address] [place] [address] Dr. Glenys Holly RBC 4.88 106/ul Normal 4.20-5.40 [facility] Comment on above: Performed By: #### M G, CMP, TSH, T7, BNP #### [facility] [address] [address] [address] Glenys Holly WBC 7.6 103/ul Normal 4.0-11.0 [facility] Comment on above: Performed By: #### M G, CMP, TSH, T7, BNP #### [facility] [address] [address] [address] Glenys Holly PROF 14(COMP METB)on 022 Albumin [Mass/Vol] 3.3 g/dL Critically low 3.4-5.0 [facility] Comment on above: Performed By: #### H STROPN, BNP, CMP ####[facility] [address] [address]Dr. Glenys Holly Albumin/Globulin [Mass ratio] 1.1 {ratio} Normal [facility] Comment on above: Performed By: #### H STROPN, BNP, CMP ####[facility] [address] [address]Dr. Glenys Holly ALP [Catalytic activity/Vol] 78 U/L Normal 46-116 [facility] Comment on above: Performed By: #### H STROPN, BNP, CMP ####[facility] [address] [address]DrRatna Holly ALT [Catalytic activity/Vol] 10 U/L Critically low 14-59 [facility] Comment on above: Performed By: #### H STROPN, BNP, CMP ####[facility] [address] [address]DraRtna Holly Anion gap [Moles/Vol] 11.2 mmol/L Normal [facility] Comment on above: Performed By: #### H STROPN, BNP, CMP ####[facility] [address] [address]Dr. Glenys Holly AST [Catalytic activity/Vol] 15 U/L Normal 15-37 [facility] Comment on above: Performed By: #### H STROPN, BNP, CMP ####[facility] [address] [address]Dr. Glenys Holly Bilirubin [Mass/Vol] 0.4 mg/dL Normal 0.2-1.0 [facility] Comment on above: Performed By: #### H STROPN, BNP, CMP ####[facility] [address] [address]Dr. Glenys Holly Calcium [Mass/Vol] 8.9 mg/dL Normal 8.5-10.1 [facility] Comment on above: Performed By: #### H STROPN, BNP, CMP ####[facility] [address] [address]Dr. Karinaparmjit Holly Chloride [Moles/Vol] 98 mmol/L Normal 98-107 [facility] Comment on above: Performed By: #### H STROPN, BNP, CMP ####[facility] [address] [place], [place] [address]Dr. Karinaparmjit Holly CO2 [Moles/Vol] 31.1 mmol/L Normal 21.0-32.0 [facility] Comment on above: Performed By: #### H STROPN, BNP, CMP ####[facility] [address] [place], [place] [address]Dr. Glenys Holly Creatinine [Mass/Vol] 1.15 mg/dL Critically high 0.55-1.02 [facility] Comment on above: Performed By: #### H STROPN, BNP, CMP ####[facility] [address] [place], [place] [address]Dr. Glenys Holly EGFR-AF MALIAN 56 mL/min/1.73m2 Critically low >=60 [facility] Comment on above: Performed By: #### H STROPN, BNP, CMP ####[facility] [address] [place], [place] [address]Dr. Glenys Holly EGFR-NON AF MALIAN 46 mL/min/1.73m2 Critically low >=60 [facility] Comment on above: Performed By: #### H STROPN, BNP, CMP ####[facility] [address] [place], [place] [address]Dr. Glenys Holly Globulin (S) [Mass/Vol] 3.0 g/dL Normal [facility] Comment on above: Performed By: #### H STROPN, BNP, CMP ####[facility] [address] [address]Dr. Glenys Holly Glucose [Mass/Vol] 107 mg/dL Critically high 74-106 [facility] Comment on above: Performed By: #### H STROPN, BNP, CMP ####[facility] [address] [address]Dr. Glenys Holly Potassium [Moles/Vol] 3.3 mmol/L Critically low 3.5-5.1 [facility] Comment on above: Performed By: #### H STROPN, BNP, CMP ####[facility] [address] [address]Dr. Glenys Holly Protein [Mass/Vol] 6.3 g/dL Critically low 6.4-8.2 [facility] Comment on above: Performed By: #### H STROPN, BNP, CMP ####[facility] [address] [address]Dr. Glenys Holly Sodium [Moles/Vol] 137 mmol/L Normal 136-145 [facility] Comment on above: Performed By: #### H STROPN, BNP, CMP ####[facility] [address] [address]Dr. Glenys Holly Urea nitrogen [Mass/Vol] 29.0 mg/dL Critically high 7.0-18.0 [facility] Comment on above: Performed By: #### H STROPN, BNP, CMP ####[facility] [address] [address]Dr. Glenys Holly Urea nitrogen/Creatinine [Mass ratio] 25.2 mg/mg Normal [facility] Comment on above: Performed By: #### H STROPN, BNP, CMP ####[facility] [address] [address]Dr. Glenys Avni TROPONIN, HIGH SENSITIVITYon 05-10-2022 HSTROP 50.5 pg/mL Normal 4.0-51.3 [facility] Comment on above: Result Comment: CUT- OFF POINTS HAVE BEEN ESTABLISHED BASED ON THE FOURTH UNIVERSAL DEFINITIONS OF MYOCARDIAL INFARCTION. THE UPPER REFERENCE LIMIT (URL) OF TROPONIN, DEFINED THE 99TH PERCENTILE OF cTnI DISTRIBUTION IN A REFERENCE POPULATION, HAS BEEN CONFIRMED THE DECISION THRESHOLD FOR ID DIAGNOSIS. Performed By: #### H STROPN, BNP, CMP ####[facility] [address] [place], [place] [address]VxDr. Glenys Holly XR CHEST 2 Von 05-10-2022 [...] RAMIRO SPENCER Date: 2022-05-10 08:10 Normal [facility] BNPon 05-09-2022 Natriuretic peptide B (Bld) [Mass/Vol] 1975.0 pg/mL Critically high <=1,800.0 [facility] Comment on above: Performed By: #### M G, CMP, TSH, T7, BNP #### [facility] [address] [address] [address] Glenys Holly CBC AUTO DIFFon 05-09-2022 BASO # 0.0 103/ul Normal 0.0-0.1 [facility] Comment on above: Performed By: #### M G, CMP, TSH, T7, BNP #### [facility] [address] [address] [address] Glenys Holly Basophils/100 WBC (Bld) 0.4 % Normal 0.2-2.0 [facility] Comment on above: Performed By: #### M G, CMP, TSH, T7, BNP #### [facility] [address] [place] [address] Dr. Glenys Holly EO # 0.0 103/ul Normal 0.0-0.7 [facility] Comment on above: Performed By: #### M G, CMP, TSH, T7, BNP #### [facility] [address] [place] [address] Dr. Glenys Hloly Eosinophils/100 WBC (Bld) 0.0 % Critically low 0.9-7.0 [facility] Comment on above: Performed By: #### M G, CMP, TSH, T7, BNP #### [facility] [address] [place] [address] Dr. Glenys Holly Erythrocyte distribution width (RBC) [Ratio] 15.2 % Critically high 11.0-15.0 [facility] Comment on above: Performed By: #### M G, CMP, TSH, T7, BNP #### [facility] [address] [place] [address] Dr. Glenys Holly Hematocrit (Bld) [Volume fraction] 41.7 % Normal 36.0-48.0 [facility] Comment on above: Performed By: #### M G, CMP, TSH, T7, BNP #### [facility] [address] [place] [address] Dr. Glenys Holly Hemoglobin (Bld) [Mass/Vol] 14.1 g/dL Normal 12.0-16.0 [facility] Comment on above: Performed By: #### M G, CMP, TSH, T7, BNP #### [facility] [address] [place] [address] Dr. Glenys Holly IG # 0.12 10e3/ul Critically high 0.00-0.03 [facility] Comment on above: Performed By: #### M G, CMP, TSH, T7, BNP #### [facility] [address] [place] [address] Dr. Glenys Holly IG % 1.2 % Critically high 0.0-0.5 [facility] Comment on above: Performed By: #### M G, CMP, TSH, T7, BNP #### [facility] [address] [place], [place] [id number] Dr. Glenys Holly LYMPH # 1.6 103/ul Normal 1.2-3.8 [facility] Comment on above: Performed By: #### M G, CMP, TSH, T7, BNP #### [facility] [address] [place] [address] Dr. Glenys Holly Lymphocytes/100 WBC (Bld) 16.0 % Critically low 20.5-60.0 [facility] Comment on above: Performed By: #### M G, CMP, TSH, T7, BNP #### [facility] [address] [place] [address] Dr. Glenys Holly MANUAL DIFF REQ NO Normal [facility] Comment on above: Performed By: #### M G, CMP, TSH, T7, BNP #### [facility] [address] [place] [address] Dr. Glenys Holly MCH (RBC) [Entitic mass] 30.0 pg Normal 26.7-34.0 [facility] Comment on above: Performed By: #### M G, CMP, TSH, T7, BNP #### [facility] [address] [place] [address] Dr. Glenys Holly MCHC (RBC) [Mass/Vol] 33.8 g/dL Normal 29.9-35.2 [facility] Comment on above: Performed By: #### M G, CMP, TSH, T7, BNP #### [facility] [address] [place] [address] Dr. Glenys Holly MCV (RBC) [Entitic vol] 88.7 fL Normal 81.0-99.0 [facility] Comment on above: Performed By: #### M G, CMP, TSH, T7, BNP #### [facility] [address] [place] [address] Dr. Glenys Holly MONO # 1.3 103/ul Critically high 0.3-0.8 [facility] Comment on above: Performed By: #### M G, CMP, TSH, T7, BNP #### [facility] [address] [place] [address] Dr. Glenys Holly Monocytes/100 WBC (Bld) 13.2 % Critically high 1.7-12.0 [facility] Comment on above: Performed By: #### M G, CMP, TSH, T7, BNP #### [facility] [address] [address] [address] Glenys Holly NEUT # 6.8 103/ul Critically high 1.4-6.5 [facility] Comment on above: Performed By: #### M G, CMP, TSH, T7, BNP #### [facility] [address] [place] [address] Dr. Glenys Holly Neutrophils/100 WBC (Bld) 69.2 % Normal 43.0-75.0 [facility] Comment on above: Performed By: #### M G, CMP, TSH, T7, BNP #### [facility] [address] [place] [address] Dr. Glenys Holly Platelet mean volume (Bld) [Entitic vol] 11.6 fL Normal 9.5-13.5 [facility] Comment on above: Performed By: #### M G, CMP, TSH, T7, BNP #### [facility] [address] [place] [address] Dr. Glenys Holly PLT 329 103/ul Normal 150-450 [facility] Comment on above: Performed By: #### M G, CMP, TSH, T7, BNP #### [facility] [address] [place] [address] Dr. Glenys Holly RBC 4.70 106/ul Normal 4.20-5.40 [facility] Comment on above: Performed By: #### M G, CMP, TSH, T7, BNP #### [facility] [address] [place] [address] Dr. Glenys Holly WBC 9.9 103/ul Normal 4.0-11.0 [facility] Comment on above: Performed By: #### M G, CMP, TSH, T7, BNP #### [facility] [address] [place] [address] Dr. Glenys Holly PROF 14(COMP METB)on 022 Albumin [Mass/Vol] 3.0 g/dL Critically low 3.4-5.0 [facility] Comment on above: Performed By: #### M G, CMP, TSH, T7, BNP #### [facility] [address] [place] [address] Dr. Glenys Holly Albumin/Globulin [Mass ratio] 1.1 {ratio} Normal [facility] Comment on above: Performed By: #### M G, CMP, TSH, T7, BNP #### [facility] [address] [place] [address] Dr. Glenys Holly ALP [Catalytic activity/Vol] 78 U/L Normal 46-116 [facility] Comment on above: Performed By: #### M G, CMP, TSH, T7, BNP #### [facility] [address] [place] [address] Dr. Glenys Holly ALT [Catalytic activity/Vol] 10 U/L Critically low 14-59 [facility] Comment on above: Performed By: #### M G, CMP, TSH, T7, BNP #### [facility] [address] [place] [address] Dr. Glenys Holly Anion gap [Moles/Vol] 9.6 mmol/L Normal [facility] Comment on above: Performed By: #### M G, CMP, TSH, T7, BNP #### [facility] [address] [place] [address] Dr. Glenys Holly AST [Catalytic activity/Vol] 18 U/L Normal 15-37 [facility] Comment on above: Performed By: #### M G, CMP, TSH, T7, BNP #### [facility] [address] [place] [address] Dr. Glenys Holly Bilirubin [Mass/Vol] 0.3 mg/dL Normal 0.2-1.0 [facility] Comment on above: Performed By: #### M G, CMP, TSH, T7, BNP #### [facility] [address] [place] [address] Dr. Glenys Holly Calcium [Mass/Vol] 9.1 mg/dL Normal 8.5-10.1 [facility] Comment on above: Performed By: #### M G, CMP, TSH, T7, BNP #### [facility] [address] [place] [address] Dr. Glenys Holly Chloride [Moles/Vol] 102 mmol/L Normal 98-107 [facility] Comment on above: Performed By: #### M G, CMP, TSH, T7, BNP #### [facility] [address] [place] [address] Dr. Glenys Holly CO2 [Moles/Vol] 30.3 mmol/L Normal 21.0-32.0 [facility] Comment on above: Performed By: #### M G, CMP, TSH, T7, BNP #### [facility] [address] [place] [address] Dr. Glenys Holly Creatinine [Mass/Vol] 0.83 mg/dL Normal 0.55-1.02 [facility] Comment on above: Performed By: #### M G, CMP, TSH, T7, BNP #### [facility] [address] [place] [address] Dr. Glenys Holly EGFR-AF MALIAN >60 Normal >=60 [facility] Comment on above: Performed By: #### M G, CMP, TSH, T7, BNP #### [facility] [address] [place] [address] Dr. Glenys Holly EGFR-NON AF MALIAN >60 Normal >=60 [facility] Comment on above: Performed By: #### M G, CMP, TSH, T7, BNP #### [facility] [address] [place] [address] Dr. Glenys Holly Globulin (S) [Mass/Vol] 2.8 g/dL Normal [facility] Comment on above: Performed By: #### M G, CMP, TSH, T7, BNP #### [facility] [address] [place] [address] Dr. Glenys Holly Glucose [Mass/Vol] 105 mg/dL Normal 74-106 [facility] Comment on above: Performed By: #### M G, CMP, TSH, T7, BNP #### [facility] [address] [place] [address] Dr. Glenys Holly Potassium [Moles/Vol] 2.9 mmol/L Critically low 3.5-5.1 [facility] Comment on above: Performed By: #### M G, CMP, TSH, T7, BNP #### [facility] [address] [address] [address] Glenys Holly Protein [Mass/Vol] 5.8 g/dL Critically low 6.4-8.2 [facility] Comment on above: Performed By: #### M G, CMP, TSH, T7, BNP #### [facility] [address] [place] [address] Dr. Glenys Holly Sodium [Moles/Vol] 138 mmol/L Normal 136-145 [facility] Comment on above: Performed By: #### M G, CMP, TSH, T7, BNP #### [facility] [address] [place] [address] Dr. Glenys Holly Urea nitrogen [Mass/Vol] 21.0 mg/dL Critically high 7.0-18.0 [facility] Comment on above: Performed By: #### M G, CMP, TSH, T7, BNP #### [facility] [address] [place] [address] Dr. Glenys Holly Urea nitrogen/Creatinine [Mass ratio] 25.3 mg/mg Normal [facility] Comment on above: Performed By: #### M G, CMP, TSH, T7, BNP #### [facility] [address] [place] [address] Dr. Glenys Holly TROPONIN, HIGH SENSITIVITYon 05-09-2022 HSTROP 49.8 pg/mL Normal 4.0-51.3 [facility] Comment on above: Result Comment: CUT- OFF POINTS HAVE BEEN ESTABLISHED BASED ON THE FOURTH UNIVERSAL DEFINITIONS OF MYOCARDIAL INFARCTION. THE UPPER REFERENCE LIMIT (URL) OF TROPONIN, DEFINED THE 99TH PERCENTILE OF cTnI DISTRIBUTION IN A REFERENCE POPULATION, HAS BEEN CONFIRMED THE DECISION THRESHOLD FOR ID DIAGNOSIS. Performed By: #### M G, CMP, TSH, T7, BNP #### [facility] [address] [place] [address] Dr. Glenys Holly BNPon 05-08-2022 Natriuretic peptide B (Bld) [Mass/Vol] 2723.0 pg/mL Critically high <=1,800.0 [facility] Comment on above: Performed By: #### C MP, HSTROPN, BNP ####[facility] [address] [address]Dr. Glenys Holly CBC AUTO DIFFon 05-08-2022 BASO # 0.0 103/ul Normal 0.0-0.1 [facility] Comment on above: Performed By: #### M G, CMP, TSH, T7, BNP #### [facility] [address] [address] [address] Glenys Holly Basophils/100 WBC (Bld) 0.2 % Normal 0.2-2.0 [facility] Comment on above: Performed By: #### M G, CMP, TSH, T7, BNP #### [facility] [address] [place] [address] Dr. Glenys Holly EO # 0.0 103/ul Normal 0.0-0.7 [facility] Comment on above: Performed By: #### M G, CMP, TSH, T7, BNP #### [facility] [address] [place] [address] Dr. Glenys Holly Eosinophils/100 WBC (Bld) 0.1 % Critically low 0.9-7.0 [facility] Comment on above: Performed By: #### M G, CMP, TSH, T7, BNP #### [facility] [address] [address] [address] Glenys Holly Erythrocyte distribution width (RBC) [Ratio] 15.9 % Critically high 11.0-15.0 [facility] Comment on above: Performed By: #### M G, CMP, TSH, T7, BNP #### [facility] [address] [place] [address] Dr. Glenys Holly Hematocrit (Bld) [Volume fraction] 38.0 % Normal 36.0-48.0 [facility] Comment on above: Performed By: #### M G, CMP, TSH, T7, BNP #### [facility] [address] [place] [address] Dr. Glenys Holly Hemoglobin (Bld) [Mass/Vol] 12.5 g/dL Normal 12.0-16.0 [facility] Comment on above: Performed By: #### M G, CMP, TSH, T7, BNP #### [facility] [address] [place] [address] Dr. Glenys Holly IG # 0.17 10e3/ul Critically high 0.00-0.03 [facility] Comment on above: Performed By: #### M G, CMP, TSH, T7, BNP #### [facility] [address] [place] [address] Dr. Glenys Holly IG % 1.1 % Critically high 0.0-0.5 [facility] Comment on above: Performed By: #### M G, CMP, TSH, T7, BNP #### [facility] [address] [place] [address] Dr. Glenys Holly LYMPH # 1.0 103/ul Critically low 1.2-3.8 [facility] Comment on above: Performed By: #### M G, CMP, TSH, T7, BNP #### [facility] [address] [place] [address] Dr. Glenys Holly Lymphocytes/100 WBC (Bld) 6.2 % Critically low 20.5-60.0 [facility] Comment on above: Performed By: #### M G, CMP, TSH, T7, BNP #### [facility] [address] [place] [address] Dr. Glenys Holly MANUAL DIFF REQ NO Normal [facility] Comment on above: Performed By: #### M G, CMP, TSH, T7, BNP #### [facility] [address] [place] [address] Dr. Glenys Holly MCH (RBC) [Entitic mass] 30.1 pg Normal 26.7-34.0 [facility] Comment on above: Performed By: #### M G, CMP, TSH, T7, BNP #### [facility] [address] [place] [address] Dr. Glenys Holly MCHC (RBC) [Mass/Vol] 32.9 g/dL Normal 29.9-35.2 [facility] Comment on above: Performed By: #### M G, CMP, TSH, T7, BNP #### [facility] [address] [place] [address] Dr. Glenys Holly MCV (RBC) [Entitic vol] 91.6 fL Normal 81.0-99.0 [facility] Comment on above: Performed By: #### M G, CMP, TSH, T7, BNP #### [facility] [address] [place] [address] Dr. Glenys Holly MONO # 0.8 103/ul Normal 0.3-0.8 [facility] Comment on above: Performed By: #### M G, CMP, TSH, T7, BNP #### [facility] [address] [place] [address] Dr. Glenys Holly Monocytes/100 WBC (Bld) 5.2 % Normal 1.7-12.0 [facility] Comment on above: Performed By: #### M G, CMP, TSH, T7, BNP #### [facility] [address] [place] [address] Dr. Glenys Holly NEUT # 14.0 103/ul Critically high 1.4-6.5 [facility] Comment on above: Performed By: #### M G, CMP, TSH, T7, BNP #### [facility] [address] [place] [address] Dr. Glenys Holly Neutrophils/100 WBC (Bld) 87.2 % Critically high 43.0-75.0 [facility] Comment on above: Performed By: #### M G, CMP, TSH, T7, BNP #### [facility] [address] [place] [address] Dr. Glenys Holly Platelet mean volume (Bld) [Entitic vol] 11.7 fL Normal 9.5-13.5 [facility] Comment on above: Performed By: #### M G, CMP, TSH, T7, BNP #### [facility] [address] [place] [address] Dr. Glenys Holly PLT 285 103/ul Normal 150-450 [facility] Comment on above: Performed By: #### M G, CMP, TSH, T7, BNP #### [facility] [address] [address] [address] Glenys Holly RBC 4.15 106/ul Critically low 4.20-5.40 [facility] Comment on above: Performed By: #### M G, CMP, TSH, T7, BNP #### [facility] [address] [address] [address] Glenys Holly WBC 16.0 103/ul Critically high 4.0-11.0 [facility] Comment on above: Performed By: #### M G, CMP, TSH, T7, BNP #### [facility] [address] [address] [address] Glenys Holly PROF 14(COMP METB)on 022 Albumin [Mass/Vol] 2.7 g/dL Critically low 3.4-5.0 [facility] Comment on above: Performed By: #### C MP, HSTROPN, BNP #### [facility] [address] [place] [address] Dr. Glenys Holly Albumin/Globulin [Mass ratio] 1.0 {ratio} Normal [facility] Comment on above: Performed By: #### C MP, HSTROPN, BNP #### [facility] [address] [address] [address] Glenys Holly ALP [Catalytic activity/Vol] 73 U/L Normal 46-116 [facility] Comment on above: Performed By: #### C MP, HSTROPN, BNP #### [facility] [address] [place] [address] Dr. Glenys Holly ALT [Catalytic activity/Vol] 11 U/L Critically low 14-59 [facility] Comment on above: Performed By: #### C MP, HSTROPN, BNP #### [facility] [address] [place] [address] Dr. Glenys Holly Anion gap [Moles/Vol] 10.5 mmol/L Normal [facility] Comment on above: Performed By: #### C MP, HSTROPN, BNP #### [facility] [address] [place] [address] Dr. Glenys Holly AST [Catalytic activity/Vol] 21 U/L Normal 15-37 [facility] Comment on above: Performed By: #### C MP, HSTROPN, BNP #### [facility] [address] [place] [address] Dr. Glenys Holly Bilirubin [Mass/Vol] 0.3 mg/dL Normal 0.2-1.0 [facility] Comment on above: Performed By: #### C MP, HSTROPN, BNP #### [facility] [address] [place] [address] Dr. Glenys Holly Calcium [Mass/Vol] 8.6 mg/dL Normal 8.5-10.1 [facility] Comment on above: Performed By: #### C MP, HSTROPN, BNP #### [facility] [address] [place] [address] Dr. Glenys Holly Chloride [Moles/Vol] 106 mmol/L Normal 98-107 [facility] Comment on above: Performed By: #### C MP, HSTROPN, BNP #### [facility] [address] [place] [address] Dr. Glenys Holly CO2 [Moles/Vol] 29.0 mmol/L Normal 21.0-32.0 [facility] Comment on above: Performed By: #### C MP, HSTROPN, BNP #### [facility] [address] [place] [address] Dr. Glenys Holly Creatinine [Mass/Vol] 0.88 mg/dL Normal 0.55-1.02 [facility] Comment on above: Performed By: #### C MP, HSTROPN, BNP #### [facility] [address] [place] [address] Dr. Glenys Holly EGFR-AF MALIAN >60 Normal >=60 [facility] Comment on above: Performed By: #### C MP, HSTROPN, BNP #### [facility] [address] [place] [address] Dr. Glenys Holly EGFR-NON AF MALIAN >60 Normal >=60 [facility] Comment on above: Performed By: #### C MP, HSTROPN, BNP #### [facility] [address] [place] [address] Dr. Glenys Holly Globulin (S) [Mass/Vol] 2.6 g/dL Normal [facility] Comment on above: Performed By: #### C MP, HSTROPN, BNP #### [facility] [address] [place] [address] Dr. Glenys Holly Glucose [Mass/Vol] 116 mg/dL Critically high 74-106 [facility] Comment on above: Performed By: #### C MP, HSTROPN, BNP #### [facility] [address] [place] [address] Dr. Glenys Holly Potassium [Moles/Vol] 3.5 mmol/L Normal 3.5-5.1 [facility] Comment on above: Performed By: #### C MP, HSTROPN, BNP #### [facility] [address] [place] [address] Dr. Glenys Holly Protein [Mass/Vol] 5.3 g/dL Critically low 6.4-8.2 [facility] Comment on above: Performed By: #### C MP, HSTROPN, BNP #### [facility] [address] [place] [address] Dr. Glenys Holly Sodium [Moles/Vol] 142 mmol/L Normal 136-145 [facility] Comment on above: Performed By: #### C MP, HSTROPN, BNP #### [facility] [address] [place] [address] Dr. Glenys Holly Urea nitrogen [Mass/Vol] 23.0 mg/dL Critically high 7.0-18.0 [facility] Comment on above: Performed By: #### C MP, HSTROPN, BNP #### [facility] [address] [place] [address] Dr. Glenys Holly Urea nitrogen/Creatinine [Mass ratio] 26.1 mg/mg [facility] Comment on above: Performed By: #### C MP, HSTROPN, BNP #### [facility] [address] [address] [address] Glenys oHlly TROPONIN, HIGH SENSITIVITYon 05-08-2022 HSTROP 60.8 pg/mL Critically high 4.0-51.3 [facility] Comment on above: Result Comment: CUT- OFF POINTS HAVE BEEN ESTABLISHED BASED ON THE FOURTH UNIVERSAL DEFINITIONS OF MYOCARDIAL INFARCTION. THE UPPER REFERENCE LIMIT (URL) OF TROPONIN, DEFINED THE 99TH PERCENTILE OF cTnI DISTRIBUTION IN A REFERENCE POPULATION, HAS BEEN CONFIRMED THE DECISION THRESHOLD FOR ID DIAGNOSIS. Performed By: #### C MP, HSTROPN, BNP ####[facility] [address] [address]Dr. Glenys Holly BNPon 05-07-2022 Natriuretic peptide B (Bld) [Mass/Vol] 1476.0 pg/mL Normal <=1,800.0 [facility] Comment on above: Performed By: #### C MP, HSTROPN, BNP ####[facility] [address] [address]Dr. Glenys Holly CBC AUTO DIFFon 05-07-2022 BASO # 0.0 103/ul Normal 0.0-0.1 [facility] Comment on above: Performed By: #### M G, CMP, TSH, T7, BNP #### [facility] [address] [place] [address] Dr. Glenys Holly Basophils/100 WBC (Bld) 0.1 % Critically low 0.2-2.0 [facility] Comment on above: Performed By: #### M G, CMP, TSH, T7, BNP #### [facility] [address] [address] [address] Glenys Holly EO # 0.0 103/ul Normal 0.0-0.7 [facility] Comment on above: Performed By: #### M G, CMP, TSH, T7, BNP #### [facility] [address] [address] [address] Glenys Holly Eosinophils/100 WBC (Bld) 0.0 % Critically low 0.9-7.0 [facility] Comment on above: Performed By: #### M G, CMP, TSH, T7, BNP #### [facility] [address] [place] [address] Dr. Glenys Holly Erythrocyte distribution width (RBC) [Ratio] 16.3 % Critically high 11.0-15.0 [facility] Comment on above: Performed By: #### M G, CMP, TSH, T7, BNP #### [facility] [address] [place] [address] Dr. Glenys Holly Hematocrit (Bld) [Volume fraction] 34.1 % Critically low 36.0-48.0 [facility] Comment on above: Performed By: #### M G, CMP, TSH, T7, BNP #### [facility] [address] [place] [address] Dr. Glenys Holly Hemoglobin (Bld) [Mass/Vol] 11.2 g/dL Critically low 12.0-16.0 [facility] Comment on above: Performed By: #### M G, CMP, TSH, T7, BNP #### [facility] [address] [place] [address] Dr. Glenys Holly IG # 0.22 10e3/ul Critically high 0.00-0.03 [facility] Comment on above: Performed By: #### M G, CMP, TSH, T7, BNP #### [facility] [address] [place] [address] Dr. Glenys Holly IG % 1.0 % Critically high 0.0-0.5 [facility] Comment on above: Performed By: #### M G, CMP, TSH, T7, BNP #### [facility] [address] [place] [address] Dr. Glenys Holly LYMPH # 1.3 103/ul Normal 1.2-3.8 [facility] Comment on above: Performed By: #### M G, CMP, TSH, T7, BNP #### [facility] [address] [place] [address] Dr. Glenys Holly Lymphocytes/100 WBC (Bld) 6.0 % Critically low 20.5-60.0 [facility] Comment on above: Performed By: #### M G, CMP, TSH, T7, BNP #### [facility] [address] [place] [address] Dr. Glenys Holly MANUAL DIFF REQ NO Normal [facility] Comment on above: Performed By: #### M G, CMP, TSH, T7, BNP #### [facility] [address] [place] [address] Dr. Glenys Holly MCH (RBC) [Entitic mass] 30.7 pg Normal 26.7-34.0 [facility] Comment on above: Performed By: #### M G, CMP, TSH, T7, BNP #### [facility] [address] [place] [address] Dr. Glenys Holly MCHC (RBC) [Mass/Vol] 32.8 g/dL Normal 29.9-35.2 [facility] Comment on above: Performed By: #### M G, CMP, TSH, T7, BNP #### [facility] [address] [place] [address] Dr. Glenys Holly MCV (RBC) [Entitic vol] 93.4 fL Normal 81.0-99.0 [facility] Comment on above: Performed By: #### M G, CMP, TSH, T7, BNP #### [facility] [address] [place] [address] Dr. Glenys Holly MONO # 1.1 103/ul Critically high 0.3-0.8 [facility] Comment on above: Performed By: #### M G, CMP, TSH, T7, BNP #### [facility] [address] [place] [address] Dr. Glenys Holly Monocytes/100 WBC (Bld) 4.8 % Normal 1.7-12.0 [facility] Comment on above: Performed By: #### M G, CMP, TSH, T7, BNP #### [facility] [address] [place] [address] Dr. Glenys Holly NEUT # 19.4 103/ul Critically high 1.4-6.5 [facility] Comment on above: Performed By: #### M G, CMP, TSH, T7, BNP #### [facility] [address] [address] [address] Glenys Holly Neutrophils/100 WBC (Bld) 88.1 % Critically high 43.0-75.0 [facility] Comment on above: Performed By: #### M G, CMP, TSH, T7, BNP #### [facility] [address] [address] [address] Glenys Holly Platelet mean volume (Bld) [Entitic vol] 11.6 fL Normal 9.5-13.5 [facility] Comment on above: Performed By: #### M G, CMP, TSH, T7, BNP #### [facility] [address] [address] [address] Glenys Holly PLT 309 103/ul Normal 150-450 [facility] Comment on above: Performed By: #### M G, CMP, TSH, T7, BNP #### [facility] [address] [address] [address] Glenys Holly RBC 3.65 106/ul Critically low 4.20-5.40 [facility] Comment on above: Performed By: #### M G, CMP, TSH, T7, BNP #### [facility] [address] [address] [address] Glenys Holly WBC 22.0 103/ul Critically high 4.0-11.0 [facility] Comment on above: Performed By: #### M G, CMP, TSH, T7, BNP #### [facility] [address] [address] [address] Glenys Holly PROF 14(COMP METB)on 022 Albumin [Mass/Vol] 2.5 g/dL Critically low 3.4-5.0 [facility] Comment on above: Performed By: #### C MP, HSTROPN, BNP ####[facility] [address] [address]Dr. Glenys Holly Albumin/Globulin [Mass ratio] 1.0 {ratio} Normal [facility] Comment on above: Performed By: #### C MP, HSTROPN, BNP ####[facility] [address] [address]Dr. Glenys Holly ALP [Catalytic activity/Vol] 69 U/L Normal 46-116 [facility] Comment on above: Performed By: #### C MP, HSTROPN, BNP ####[facility] [address] [address]Dr. Glenys Holly ALT [Catalytic activity/Vol] 12 U/L Critically low 14-59 [facility] Comment on above: Performed By: #### C MP, HSTROPN, BNP ####[facility] [address] [place], [place] [address]Dr. Glenys Holly Anion gap [Moles/Vol] 10.9 mmol/L Normal [facility] Comment on above: Performed By: #### C GEOFFREY, HSTROPN, BNP ####[facility] [address] [place], [place] [address]Dr. Glenys Holly AST [Catalytic activity/Vol] 25 U/L Normal 15-37 [facility] Comment on above: Performed By: #### C GEOFFREY, HSTROPN, BNP ####[facility] [address] [address]Dr. Glenys Holly Bilirubin [Mass/Vol] 0.1 mg/dL Critically low 0.2-1.0 [facility] Comment on above: Performed By: #### C MP, HSTROPN, BNP ####[facility] [address] [place], [place] [address]Dr. Glenys Holly Calcium [Mass/Vol] 9.1 mg/dL Normal 8.5-10.1 [facility] Comment on above: Performed By: #### C MP, HSTROPN, BNP ####[facility] [address] [place], [place] [address]Dr. Glenys Holly Chloride [Moles/Vol] 110 mmol/L Critically high 98-107 [facility] Comment on above: Performed By: #### C MP, HSTROPN, BNP ####[facility] [address] [address]Dr. Glenys Holly CO2 [Moles/Vol] 24.8 mmol/L Normal 21.0-32.0 [facility] Comment on above: Performed By: #### C MP, HSTROPN, BNP ####[facility] [address] [place], [place] [address]Dr. Glenys Holly Creatinine [Mass/Vol] 0.87 mg/dL Normal 0.55-1.02 [facility] Comment on above: Performed By: #### C MP, HSTROPN, BNP ####[facility] [address] [place], [place] [address]Dr. Glenys Holly EGFR-AF MALIAN >60 Normal >=60 [facility] Comment on above: Performed By: #### C MP, HSTROPN, BNP ####[facility] [address] [place], [place] [address]Dr. Glenys Holly EGFR-NON AF MALIAN >60 Normal >=60 [facility] Comment on above: Performed By: #### C MP, HSTROPN, BNP ####[facility] [address] [place], [place] [address]Dr. Glenys Holly Globulin (S) [Mass/Vol] 2.5 g/dL Normal [facility] Comment on above: Performed By: #### C MP, HSTROPN, BNP ####[facility] [address] [place], [place] [address]Dr. Glenys Holly Glucose [Mass/Vol] 128 mg/dL Critically high 74-106 T [facility] Comment on above: Performed By: #### C MP, HSTROPN, BNP ####[facility] [address] [place], [place] [address]Dr. Glenys Holly Potassium [Moles/Vol] 4.7 mmol/L Normal 3.5-5.1 [facility] Comment on above: Performed By: #### C MP, HSTROPN, BNP ####[facility] [address] [place], [place] [address]Dr. Glenys Holly Protein [Mass/Vol] 5.0 g/dL Critically low 6.4-8.2 Th [facility] Comment on above: Performed By: #### C MP, HSTROPN, BNP ####[facility] [address] [id number]. Glenys Holly Sodium [Moles/Vol] 141 mmol/L Normal 136-145 [facility] Comment on above: Performed By: #### C MP, HSTROPN, BNP ####[facility] [address] [id number]. Glenys Holly Urea nitrogen [Mass/Vol] 28.0 mg/dL Critically high 7.0-18.0 [facility] Comment on above: Performed By: #### C MP, HSTROPN, BNP ####[facility] [address] [address]Dr. Glenys Holly Urea nitrogen/Creatinine [Mass ratio] 32.2 mg/mg Normal [facility] Comment on above: Performed By: #### C MP, HSTROPN, BNP ####[facility] [address] [address]Dr. Glenys Holly TROPONIN, HIGH SENSITIVITYon 05-07-2022 HSTROP 78.5 pg/mL Critically high 4.0-51.3 [facility] Comment on above: Result Comment: CUT- OFF POINTS HAVE BEEN ESTABLISHED BASED ON THE FOURTH UNIVERSAL DEFINITIONS OF MYOCARDIAL INFARCTION. THE UPPER REFERENCE LIMIT (URL) OF TROPONIN, DEFINED THE 99TH PERCENTILE OF cTnI DISTRIBUTION IN A REFERENCE POPULATION, HAS BEEN CONFIRMED THE DECISION THRESHOLD FOR ID DIAGNOSIS. Performed By: #### C MP, HSTROPN, BNP ####[facility] [address] [address]Dr. Glenys Holly XR CHEST 2 Von 05-07-2022 [...] [place] Date: 2022-05-07 10:34 Normal [facility] BNPon 05-06-2022 Natriuretic peptide B (Bld) [Mass/Vol] 1143.0 pg/mL Normal <=1,800.0 [facility] Comment on above: Performed By: #### C MP, BNP ####[facility] [address] [address]Dr. Glenys Holly CBC AUTO DIFFon 05-06-2022 BASO # 0.0 103/ul Normal 0.0-0.1 [facility] Comment on above: Performed By: #### M G, CMP, TSH, T7, BNP #### [facility] [address] [address] [address] Glenys Holly Basophils/100 WBC (Bld) 0.1 % Critically low 0.2-2.0 [facility] Comment on above: Performed By: #### M G, CMP, TSH, T7, BNP #### [facility] [address] [address] [address] Glenys Holly EO # 0.0 103/ul Normal 0.0-0.7 [facility] Comment on above: Performed By: #### M G, CMP, TSH, T7, BNP #### [facility] [address] [address] [address] Glenys Holly Eosinophils/100 WBC (Bld) 0.0 % Critically low 0.9-7.0 [facility] Comment on above: Performed By: #### M G, CMP, TSH, T7, BNP #### [facility] [address] [address] [address] Glenys Holly Erythrocyte distribution width (RBC) [Ratio] 15.8 % Critically high 11.0-15.0 [facility] Comment on above: Performed By: #### M G, CMP, TSH, T7, BNP #### [facility] [address] [place] [address] Dr. Glenys Holly Hematocrit (Bld) [Volume fraction] 36.7 % Normal 36.0-48.0 [facility] Comment on above: Performed By: #### M G, CMP, TSH, T7, BNP #### [facility] [address] [place] [address] Dr. Glenys Holly Hemoglobin (Bld) [Mass/Vol] 12.3 g/dL Normal 12.0-16.0 [facility] Comment on above: Performed By: #### M G, CMP, TSH, T7, BNP #### [facility] [address] [place] [address] Dr. Glenys Holly IG # 0.10 10e3/ul Critically high 0.00-0.03 [facility] Comment on above: Performed By: #### M G, CMP, TSH, T7, BNP #### [facility] [address] [place] [address] Dr. Glenys Holly IG % 0.5 % Normal 0.0-0.5 [facility] Comment on above: Performed By: #### M G, CMP, TSH, T7, BNP #### [facility] [address] [place] [address] Dr. Glenys Holly LYMPH # 1.4 103/ul Normal 1.2-3.8 [facility] Comment on above: Performed By: #### M G, CMP, TSH, T7, BNP #### [facility] [address] [place] [address] Dr. Glenys Holly Lymphocytes/100 WBC (Bld) 7.2 % Critically low 20.5-60.0 [facility] Comment on above: Performed By: #### M G, CMP, TSH, T7, BNP #### [facility] [address] [place] [address] Dr. Glenys Holly MANUAL DIFF REQ NO Normal [facility] Comment on above: Performed By: #### M G, CMP, TSH, T7, BNP #### [facility] [address] [place] [address] Dr. Glenys Holly MCH (RBC) [Entitic mass] 30.9 pg Normal 26.7-34.0 [facility] Comment on above: Performed By: #### M G, CMP, TSH, T7, BNP #### [facility] [address] [place] [address] Dr. Glenys Holly MCHC (RBC) [Mass/Vol] 33.5 g/dL Normal 29.9-35.2 [facility] Comment on above: Performed By: #### M G, CMP, TSH, T7, BNP #### [facility] [address] [place] [address] Dr. Glenys Holly MCV (RBC) [Entitic vol] 92.2 fL Normal 81.0-99.0 [facility] Comment on above: Performed By: #### M G, CMP, TSH, T7, BNP #### [facility] [address] [place] [address] Dr. Glenys Holly MONO # 0.9 103/ul Critically high 0.3-0.8 [facility] Comment on above: Performed By: #### M G, CMP, TSH, T7, BNP #### [facility] [address] [place] [address] Dr. Glenys Holly Monocytes/100 WBC (Bld) 4.6 % Normal 1.7-12.0 [facility] Comment on above: Performed By: #### M G, CMP, TSH, T7, BNP #### [facility] [address] [place] [address] Dr. Glenys Holly NEUT # 17.4 103/ul Critically high 1.4-6.5 [facility] Comment on above: Performed By: #### M G, CMP, TSH, T7, BNP #### [facility] [address] [place] [address] Dr. Glenys Holly Neutrophils/100 WBC (Bld) 87.6 % Critically high 43.0-75.0 [facility] Comment on above: Performed By: #### M G, CMP, TSH, T7, BNP #### [facility] [address] [address] [address] Glenys Holly Platelet mean volume (Bld) [Entitic vol] 11.2 fL Normal 9.5-13.5 [facility] Comment on above: Performed By: #### M G, CMP, TSH, T7, BNP #### [facility] [address] [place] [address] Dr. Glenys Holly PLT 310 103/ul Normal 150-450 [facility] Comment on above: Performed By: #### M G, CMP, TSH, T7, BNP #### [facility] [address] [place] [address] Dr. Glenys Holly RBC 3.98 106/ul Critically low 4.20-5.40 [facility] Comment on above: Performed By: #### M G, CMP, TSH, T7, BNP #### [facility] [address] [place] [address] Dr. Glenys Holly WBC 19.8 103/ul Critically high 4.0-11.0 [facility] Comment on above: Performed By: #### M G, CMP, TSH, T7, BNP #### [facility] [address] [place] [address] Dr. Glenys Holly LACTATE/LACTIC ACIDon 2021 Lactate [Moles/Vol] 1.1 mmol/L Normal 0.4-1.9 [facility] Comment on above: Performed By: #### M G, CMP, TSH, T7, BNP #### [facility] [address] [place] [address] Dr. Glenys Holly POINT OF CARE GLUCOSEon 04-12 Glucose [Mass/Vol] 164 mg/dL Critically high 74-106 [facility] Comment on above: Performed By: #### M G, CMP, TSH, T7, BNP #### [facility] [address] [place] [address] Dr. Glenys Holly PROF 14(COMP METB)on 022 Albumin [Mass/Vol] 2.6 g/dL Critically low 3.4-5.0 [facility] Comment on above: Performed By: #### C MP, BNP ####[facility] [address] [place] [id number]. Glenys Holly Albumin/Globulin [Mass ratio] 1.0 {ratio} Normal [facility] Comment on above: Performed By: #### C MP, BNP ####[facility] [address] [place] [id number]. Glenys Holly ALP [Catalytic activity/Vol] 88 U/L Normal 46-116 [facility] Comment on above: Performed By: #### C MP, BNP ####[facility] [address] [place] [id number]. Glenys Holly ALT [Catalytic activity/Vol] 1 U/L Critically low 14-59 [facility] Comment on above: Performed By: #### C MP, BNP ####[facility] [address] [place] [address]Dr. Glenys Holly Anion gap [Moles/Vol] 9.9 mmol/L Normal [facility] Comment on above: Performed By: #### C MP, BNP ####[facility] [address] [place] [address]Dr. Glenys Holly AST [Catalytic activity/Vol] 19 U/L Normal 15-37 [facility] Comment on above: Performed By: #### C MP, BNP ####[facility] [address] [place] [id number]. Glenys Holly Bilirubin [Mass/Vol] 0.2 mg/dL Normal 0.2-1.0 [facility] Comment on above: Performed By: #### C MP, BNP ####[facility] [address] [place] [id number]. Glenys Holly Calcium [Mass/Vol] 8.7 mg/dL Normal 8.5-10.1 [facility] Comment on above: Performed By: #### C MP, BNP ####[facility] [address] [place] [address]Dr. Glenys Holly Chloride [Moles/Vol] 108 mmol/L Critically high 98-107 [facility] Comment on above: Performed By: #### C MP, BNP ####[facility] [address] [place] [address]Dr. Glenys Holly CO2 [Moles/Vol] 25.2 mmol/L Normal 21.0-32.0 [facility] Comment on above: Performed By: #### C MP, BNP ####[facility] [address] [place] [address]Dr. Glenys Holly Creatinine [Mass/Vol] 0.80 mg/dL Normal 0.55-1.02 [facility] Comment on above: Performed By: #### C MP, BNP ####[facility] [address] [place] [address]Dr. Glenys Holly EGFR-AF MALIAN >60 Normal >=60 [facility] Comment on above: Performed By: #### C MP, BNP ####[facility] [address] [place], [place] [address]Dr. Glenys Holly EGFR-NON AF MALIAN >60 Normal >=60 [facility] Comment on above: Performed By: #### C MP, BNP ####[facility] [address] [place], [place] [address]Dr. Glenys Holly Globulin (S) [Mass/Vol] 2.7 g/dL Normal [facility] Comment on above: Performed By: #### C MP, BNP ####[facility] [address] [place], [place] [address]Dr. Glenys Holly Glucose [Mass/Vol] 123 mg/dL Critically high 74-106 [facility] Comment on above: Performed By: #### C MP, BNP ####[facility] [address] [place], [place] [address]Dr. Glenys Holly Potassium [Moles/Vol] 4.1 mmol/L Normal 3.5-5.1 [facility] Comment on above: Performed By: #### C MP, BNP ####[facility] [address] [place], [place] [address]Dr. Glenys Holly Protein [Mass/Vol] 5.3 g/dL Critically low 6.4-8.2 [facility] Comment on above: Performed By: #### C MP, BNP ####[facility] [address] [place] [id number]. Glenys Holly Sodium [Moles/Vol] 139 mmol/L Normal 136-145 [facility] Comment on above: Performed By: #### C MP, BNP ####[facility] [address] [place] [id number]. Glenys Holly Urea nitrogen [Mass/Vol] 22.0 mg/dL Critically high 7.0-18.0 [facility] Comment on above: Performed By: #### C MP, BNP ####[facility] [address] [place] [id number]. Glenys Holly Urea nitrogen/Creatinine [Mass ratio] 27.5 mg/mg Normal [facility] Comment on above: Performed By: #### C MP, BNP ####[facility] [address] [place] [address]DrRatna Holly T3, TOTAL (TRIIODOTHYRONINE) on 05-06-2022 T3, TOTAL 69 ng/dL Critically low 71-180 [facility] Comment on above: Performed By: #### M G, CMP, TSH, T7, BNP #### [facility] [address] [address] [address] Glenys Holly TROPONIN, HIGH SENSITIVITYon 05-06-2022 HSTROP 141.0 pg/mL Critically high 4.0-51.3 [facility] Comment on above: Result Comment: CUT- OFF POINTS HAVE BEEN ESTABLISHED BASED ON THE FOURTH UNIVERSAL DEFINITIONS OF MYOCARDIAL INFARCTION. THE UPPER REFERENCE LIMIT (URL) OF TROPONIN, DEFINED THE 99TH PERCENTILE OF cTnI DISTRIBUTION IN A REFERENCE POPULATION, HAS BEEN CONFIRMED THE DECISION THRESHOLD FOR ID DIAGNOSIS. Performed By: #### M G, CMP, TSH, T7, BNP #### [facility] [address] [address] [address] Glenys Holly AMYLASEon 05-05-2022 Amylase [Catalytic activity/Vol] 26 U/L Normal 25-115 [facility] Comment on above: Performed By: #### M G, CMP, TSH, T7, BNP #### [facility] [address] [address] [address] Glenys Holly BNPon 05-05-2022 Natriuretic peptide B (Bld) [Mass/Vol] 811.0 pg/mL Normal <=1,800.0 [facility] Comment on above: Performed By: #### M G, CMP, TSH, T7, BNP #### [facility] [address] [address] [address] Glenys Holly CARDIAC ADEEL 3-6on 2 CK [Catalytic activity/Vol] 33 U/L Normal 26-192 [facility] Comment on above: Performed By: #### C MREP ####[facility] [address] [place] [address]Dr. Glenys Holly CK.MB [Mass/Vol] 1.13 ng/mL Normal <=3.60 [facility] Comment on above: Performed By: #### C MREP ####[facility] [address] [place] [address]Dr. Glenys Holly HSTROP 164.3 pg/mL Critically high 4.0-51.3 [facility] Comment on above: Result Comment: CUT- OFF POINTS HAVE BEEN ESTABLISHED BASED ON THE FOURTH UNIVERSAL DEFINITIONS OF MYOCARDIAL INFARCTION. THE UPPER REFERENCE LIMIT (URL) OF TROPONIN, DEFINED THE 99TH PERCENTILE OF cTnI DISTRIBUTION IN A REFERENCE POPULATION, HAS BEEN CONFIRMED THE DECISION THRESHOLD FOR ID DIAGNOSIS. Performed By: #### C MREP ####[facility] [address] [place] [address]Dr. Glenys Holly CK [Catalytic activity/Vol] 38 U/L Normal 26-192 [facility] Comment on above: Performed By: #### M G, CMP, TSH, T7, BNP #### [facility] [address] [address] [address] Glenys Holly CK.MB [Mass/Vol] 0.91 ng/mL Normal <=3.60 [facility] Comment on above: Performed By: #### M G, CMP, TSH, T7, BNP #### [facility] [address] [address] [address] Glenys Holly HSTROP 178.2 pg/mL Critically high 4.0-51.3 [facility] Comment on above: Result Comment: CUT- OFF POINTS HAVE BEEN ESTABLISHED BASED ON THE FOURTH UNIVERSAL DEFINITIONS OF MYOCARDIAL INFARCTION. THE UPPER REFERENCE LIMIT (URL) OF TROPONIN, DEFINED THE 99TH PERCENTILE OF cTnI DISTRIBUTION IN A REFERENCE POPULATION, HAS BEEN CONFIRMED THE DECISION THRESHOLD FOR ID DIAGNOSIS. Performed By: #### M G, CMP, TSH, T7, BNP #### [facility] [address] [address] [address] Glenys Holly CARDIAC ADEEL ADMITon 022 CK [Catalytic activity/Vol] 29 U/L Normal 26-192 [facility] Comment on above: Performed By: #### M G, CMP, TSH, T7, BNP #### [facility] [address] [address] [address] Glenys Holly CK.MB [Mass/Vol] 0.73 ng/mL Normal <=3.60 [facility] Comment on above: Performed By: #### M G, CMP, TSH, T7, BNP #### [facility] [address] [place] [address] Dr. Glenys Holly HSTROP 191.6 pg/mL Critically high 4.0-51.3 [facility] Comment on above: Result Comment: CUT- OFF POINTS HAVE BEEN ESTABLISHED BASED ON THE FOURTH UNIVERSAL DEFINITIONS OF MYOCARDIAL INFARCTION. THE UPPER REFERENCE LIMIT (URL) OF TROPONIN, DEFINED THE 99TH PERCENTILE OF cTnI DISTRIBUTION IN A REFERENCE POPULATION, HAS BEEN CONFIRMED THE DECISION THRESHOLD FOR ID DIAGNOSIS. Performed By: #### M G, CMP, TSH, T7, BNP #### [facility] [address] [place] [address] Dr. Glenys Holly NEO 79 ng/mL Normal 9-82 [facility] Comment on above: Performed By: #### M G, CMP, TSH, T7, BNP #### [facility] [address] [place] [address] Dr. Glenys Holly CBC W MANUAL DIFFon 05-05-20 22 ANISOCYTOSIS 1+ Normal [facility] Comment on above: Performed By: #### M G, CMP, TSH, T7, BNP #### [facility] [address] [address] [address] Glenys Holly ATYPICAL LYMPH # Normal [facility] Comment on above: Performed By: #### M G, CMP, TSH, T7, BNP #### [facility] [address] [place] [address] Dr. Glenys Holly ATYPICAL LYMPH % Normal [facility] Comment on above: Performed By: #### M G, CMP, TSH, T7, BNP #### [facility] [address] [place] [address] Dr. Glenys Holly BAND # 0.2 103/ul Normal 0.0-0.3 [facility] Comment on above: Performed By: #### M G, CMP, TSH, T7, BNP #### [facility] [address] [place] [address] Dr. Glenys Holly BAND % 1 % Normal 0-5 [facility] Comment on above: Performed By: #### M G, CMP, TSH, T7, BNP #### [facility] [address] [place] [address] Dr. Glenys Holly BASOM # 0.00 103/ul Normal 0.00-0.10 [facility] Comment on above: Performed By: #### M G, CMP, TSH, T7, BNP #### [facility] [address] [place] [address] Dr. Glenys Holly BASOM % 0.0 % Critically low 0.2-2.0 [facility] Comment on above: Performed By: #### M G, CMP, TSH, T7, BNP #### [facility] [address] [place] [address] Dr. Glenys Holly BLAST # Normal [facility] Comment on above: Performed By: #### M G, CMP, TSH, T7, BNP #### [facility] [address] [place] [address] Dr. Glenys Holly BLAST % Normal [facility] Comment on above: Performed By: #### M G, CMP, TSH, T7, BNP #### [facility] [address] [place] [address] Dr. Glenys Holly CORRECTED WBC Normal 4.0-11.0 [facility] Comment on above: Performed By: #### M G, CMP, TSH, T7, BNP #### [facility] [address] [place] [address] Dr. Glenys Holly EOS # 0.00 103/ul Normal 0.00-0.70 [facility] Comment on above: Performed By: #### M G, CMP, TSH, T7, BNP #### [facility] [address] [place] [address] Dr. Glenys Holly EOS% 0.0 % Critically low 0.9-7.0 [facility] Comment on above: Performed By: #### M G, CMP, TSH, T7, BNP #### [facility] [address] [place] [address] Dr. Glenys Holly HCT 41.5 % Normal 36.0-48.0 [facility] Comment on above: Performed By: #### M G, CMP, TSH, T7, BNP #### [facility] [address] [place] [address] Dr. Glenys Holly HGB 14.2 g/dl Normal 12.0-16.0 [facility] Comment on above: Performed By: #### M G, CMP, TSH, T7, BNP #### [facility] [address] [place] [address] Dr. Glenys Holly LYMPHM # 0.96 103/ul Critically low 1.20-3.80 [facility] Comment on above: Performed By: #### M G, CMP, TSH, T7, BNP #### [facility] [address] [place] [address] Dr. Glenys Holly LYMPHM% 6.0 % Critically low 20.5-60.0 [facility] Comment on above: Performed By: #### M G, CMP, TSH, T7, BNP #### [facility] [address] [place] [address] Dr. Glenys Holly MCH 31.0 pg Normal 26.7-34.0 [facility] Comment on above: Performed By: #### M G, CMP, TSH, T7, BNP #### [facility] [address] [address] [address] Glenys Holly MCHC 34.2 g/dl Normal 29.9-35.2 [facility] Comment on above: Performed By: #### M G, CMP, TSH, T7, BNP #### [facility] [address] [address] [address] Glenys Holly MCV 90.6 fL Normal 81.0-99.0 [facility] Comment on above: Performed By: #### M G, CMP, TSH, T7, BNP #### [facility] [address] [address] [address] Glenys Holly METAMYELOCYTE # Normal [facility] Comment on above: Performed By: #### M G, CMP, TSH, T7, BNP #### [facility] [address] [address] [address] Glenys Holly METAMYELOCYTE % Normal [facility] Comment on above: Performed By: #### M G, CMP, TSH, T7, BNP #### [facility] [address] [address] [address] Glenys Holly MONOM# 2.56 103/ul Critically high 0.30-0.80 [facility] Comment on above: Performed By: #### M G, CMP, TSH, T7, BNP #### [facility] [address] [address] [address] Glenys Holly MONOM% 16.0 % Critically high 1.7-12.0 [facility] Comment on above: Performed By: #### M G, CMP, TSH, T7, BNP #### [facility] [address] [address] [address] Glenys Holly MPV 11.1 fL Normal 9.5-13.5 [facility] Comment on above: Performed By: #### M G, CMP, TSH, T7, BNP #### [facility] [address] [address] [address] Glenys Holly MYELOCYTE # Normal [facility] Comment on above: Performed By: #### M G, CMP, TSH, T7, BNP #### [facility] [address] [address] [address] Glenys Holly MYELOCYTE % Normal [facility] Comment on above: Performed By: #### M G, CMP, TSH, T7, BNP #### [facility] [address] [address] [address] Glenys Holly NRBC Normal [facility] Comment on above: Performed By: #### M G, CMP, TSH, T7, BNP #### [facility] [address] [address] [address] Glenys Holly PLT 352 103/ul Normal 150-450 [facility] Comment on above: Performed By: #### M G, CMP, TSH, T7, BNP #### [facility] [address] [place] [address] Dr. Glenys Holly RBC 4.58 106/ul Normal 4.20-5.40 [facility] Comment on above: Performed By: #### M G, CMP, TSH, T7, BNP #### [facility] [address] [place] [address] Dr. Glenys Holly RDW 15.2 % Critically high 11.0-15.0 [facility] Comment on above: Performed By: #### M G, CMP, TSH, T7, BNP #### [facility] [address] [place] [address] Dr. Glenys Holly SEG # 12.32 103/ul Critically high 1.40-6.50 [facility] Comment on above: Performed By: #### M G, CMP, TSH, T7, BNP #### [facility] [address] [place] [address] Dr. Glenys Holly SEG % 77.0 % Critically high 43.0-75.0 [facility] Comment on above: Performed By: #### M G, CMP, TSH, T7, BNP #### [facility] [address] [address] [address] Glenys Holly WBC 16.0 103/ul Critically high 4.0-11.0 [facility] Comment on above: Performed By: #### M G, CMP, TSH, T7, BNP #### [facility] [address] [place], [place] [address] Dr. Glenys Holly CTA CHEST WO W [...] YULISSA TALBERT Date: 2022-05-05 09:32 Normal [facility] CULTURE BLOODon 05-05-2022 Microscopic examination of blood, culture Culture Observations: NO GROWTH AT 5 DAYS. Normal [facility] Comment on above: Performed By: #### B LDCX2 ####[facility] [address] [place], [place] [address]Dr. Glenys Holly Microscopic examination of blood, culture Culture Observations: NO GROWTH AT 5 DAYS. Normal [facility] Comment on above: Performed By: #### B LDCX1 ####[facility] [address] [place], [place] [address]Yw. Glenys Holly CULTURE URINEon 05-05-2022 CULTURE URINE Culture Observations : LIGHT GROWTH OF MIXED GENITAL NIDA. NO POTENTIAL PATHOGENS SEEN. Normal [facility] Comment on above: Performed By: #### U RCX ####[facility] [address] [place], [place] [address]Jf. Glenys Holly Covid-19 PCR (CVDTB)on 04-12 SARS-CoV-2 (COVID-19) RNA KINZA+probe Ql (Unsp spec) Not detected Normal NOT DETECTED [facility] Comment on above: Result Comment: When [...] for this test is supported by the Budget Counselor of Health and Human Service's declaration that [...] used). Performed By: #### C VDTBH #### [facility] [address] [place], [place] [address] Dr. Glenys Holly ECHOCARDIO M/2D COMPLETEon 1 07-05-2021 ECHOCARDIO M/2D COMPLETE Patient: JUDITH KHAN Exam Date: 05/05/2022 : 1945 Gender:F Ordering : DR KAVON SAMS . Admission #: [id number] Family : Order #: [id number] CLICK HERE TO VIEW EXAM ECHOCARDIOGRAM REPORT [...] Trixie Neal M.D. on 05/10/2022 at 13:12 [facility] INFLUENZA A AND B AGon 05-05 INFLUANEGH SEE BELOW [place] [facility] Comment on above: Result Comment: Nega tive for Flu A protein angiten. Infection due to Flu A cannot be ruled out. Flu A angiten in the sample may be below the detection limit of the test. Performed By: #### M G, CMP, TSH, T7, BNP #### [facility] [address] [place] [address] Dr. Glenys Holly [facility] SEE BELOW Normal [facility] Comment on above: Result Comment: Nega tive for Flu B protein antigen. Infection due to Flu B cannot be ruled out. Flu B antigen in the sample may be below the detection limit of the test. Performed By: #### M G, CMP, TSH, T7, BNP #### [facility] [address] [place] [address] Dr. Glenys Holly INFLUENZA A AG Negative Normal NEGATIVE SEE COMMENT [facility] Comment on above: Performed By: #### M G, CMP, TSH, T7, BNP #### [facility] [address] [place] [address] Dr. Glenys Holly INFLUENZA B AG Negative Normal NEGATIVE SEE COMMENT [facility] Comment on above: Performed By: #### M G, CMP, TSH, T7, BNP #### [facility] [address] [place] [address] Dr. Glenys Holly INTERNAL CONTROLS Within Normal Limits Normal Wi thin Normal Limits [facility] Comment on above: Performed By: #### M G, CMP, TSH, T7, BNP #### [facility] [address] [place] [address] Dr. Glenys Holly LACTATE/LACTIC ACIDon 2021 Lactate [Moles/Vol] 5.2 mmol/L Critically high 0.4-1.9 [facility] Comment on above: Performed By: #### M G, CMP, TSH, T7, BNP #### [facility] [address] [place] [address] Dr. Glenys Holly Lactate [Moles/Vol] 4.8 mmol/L Critically high 0.4-1.9 [facility] Comment on above: Performed By: #### M G, CMP, TSH, T7, BNP #### [facility] [address] [place] [address] Dr. Glenys Holly LIPASEon 05-05-2022 Lipase [Catalytic activity/Vol] 64.0 U/L Critically low 73.0-393.0 [facility] Comment on above: Performed By: #### M G, CMP, TSH, T7, BNP #### [facility] [address] [place] [address] Dr. Glenys oHlly PROF CHEM 8 (BAS METB)on Anion gap [Moles/Vol] 12.6 mmol/L Normal [facility] Comment on above: Performed By: #### M G, CMP, TSH, T7, BNP #### [facility] [address] [place] [address] Dr. Glenys Holly Calcium [Mass/Vol] 9.6 mg/dL Normal 8.5-10.1 [facility] Comment on above: Performed By: #### M G, CMP, TSH, T7, BNP #### [facility] [address] [place] [address] Dr. Glenys Holly Chloride [Moles/Vol] 102 mmol/L Normal 98-107 [facility] Comment on above: Performed By: #### M G, CMP, TSH, T7, BNP #### [facility] [address] [place] [address] Dr. Glenys Holly CO2 [Moles/Vol] 26.3 mmol/L Normal 21.0-32.0 [facility] Comment on above: Performed By: #### M G, CMP, TSH, T7, BNP #### [facility] [address] [place] [address] Dr. Glenys Holly Creatinine [Mass/Vol] 1.00 mg/dL Normal 0.55-1.02 [facility] Comment on above: Performed By: #### M G, CMP, TSH, T7, BNP #### [facility] [address] [place] [address] Dr. Glenys Holly EGFR-AF MALIAN >60 Normal >=60 [facility] Comment on above: Performed By: #### M G, CMP, TSH, T7, BNP #### [facility] [address] [place] [address] [address] Glenys Holly EGFR-NON AF MALIAN 54 mL/min/1.73m2 Critically low >=60 [facility] Comment on above: Performed By: #### M G, CMP, TSH, T7, BNP #### [facility] [address] [address] [address] Glenys Holly Glucose [Mass/Vol] 128 mg/dL Critically high 74-106 [facility] Comment on above: Performed By: #### M G, CMP, TSH, T7, BNP #### [facility] [address] [place] [address] [address] Glenys Holly Potassium [Moles/Vol] 2.9 mmol/L Critically low 3.5-5.1 [facility] [facility] Comment on above: Performed By: #### M G, CMP, TSH, T7, BNP #### [facility] [address] [place] [address] Dr. Glenys Holly Sodium [Moles/Vol] 138 mmol/L Normal 136-145 [facility] Comment on above: Performed By: #### M G, CMP, TSH, T7, BNP #### [facility] [address] [address] [address] Glenys Holly Urea nitrogen [Mass/Vol] 20.0 mg/dL Critically high 7.0-18.0 [facility] Comment on above: Performed By: #### M G, CMP, TSH, T7, BNP #### [facility] [address] [place] [address] Dr. Glenys Holly Urea nitrogen/Creatinine [Mass ratio] 20.0 mg/mg Normal [facility] Comment on above: Performed By: #### M G, CMP, TSH, T7, BNP #### [facility] [address] [place] [address] Dr. Glenys Holly T4on 05-05-2022 T4 [Mass/Vol] 7.40 ug/dL Normal 4.80-13.90 [facility] Comment on above: Performed By: #### M G, CMP, TSH, T7, BNP #### [facility] [address] [place] [address] Dr. Glenys Holly TSHon 05-05-2022 TSH 0.198 uIU/mL Critically low 0.358-3.740 [facility] Comment on above: Performed By: #### M G, CMP, TSH, T7, BNP #### [facility] [address] [address] [address] Glenys Holly UA RANDOM W/MICROSCOPICon BACTERIA NONE SEEN Normal NONE SEEN [facility] Comment on above: Performed By: #### M G, CMP, TSH, T7, BNP #### [facility] [address] [address] [address] Glenys Holly Bilirubin Ql (U) Negative Normal NEGATIVE [facility] Comment on above: Performed By: #### M G, CMP, TSH, T7, BNP #### [facility] [address] [place] [address] Dr. Glenys Holly CAST NONE SEEN Normal NONE SEEN [facility] Comment on above: Performed By: #### M G, CMP, TSH, T7, BNP #### [facility] [address] [address] [address] Glenys Holly Clarity (U) SL CLOUDY Abnormal CLEAR [facility] Comment on above: Performed By: #### M G, CMP, TSH, T7, BNP #### [facility] [address] [address] [address] Glenys Holly Color (U) LT. YELLOW Normal YELLOW [facility] Comment on above: Performed By: #### M G, CMP, TSH, T7, BNP #### [facility] [address] [address] [address] Glenys Holly Crystals LM Nom (Urine sed) NONE SEEN Normal NONE SEEN [facility] Comment on above: Performed By: #### M G, CMP, TSH, T7, BNP #### [facility] [address] [place] [address] Dr. Glenys Holly Epithelial cells LM Ql (Urine sed) FEW Abnormal NONE SEEN /RARE [facility] Comment on above: Performed By: #### M G, CMP, TSH, T7, BNP #### [facility] [address] [place] [address] Dr. Glenys Holly Glucose Ql (U) Negative Normal NEGATIVE [facility] Comment on above: Performed By: #### M G, CMP, TSH, T7, BNP #### [facility] [address] [place] [address] Dr. Glenys Holly Hemoglobin Ql (U) MODERATE Abnormal NEGATIVE [facility] Comment on above: Performed By: #### M G, CMP, TSH, T7, BNP #### [facility] [address] [place] [address] Dr. Glenys Holly Ketones Ql (U) Negative Normal NEGATIVE [facility] Comment on above: Performed By: #### M G, CMP, TSH, T7, BNP #### [facility] [address] [place] [address] Dr. Glenys Holly LEUKOCYTES Negative Normal NEGATIVE [facility] Comment on above: Performed By: #### M G, CMP, TSH, T7, BNP #### [facility] [address] [place] [address] Dr. Glenys Holly MUCOUS NONE SEEN Normal NONE SEEN [facility] Comment on above: Performed By: #### M G, CMP, TSH, T7, BNP #### [facility] [address] [place] [address] Dr. Glenys Holly Nitrite Ql (U) Negative Normal NEGATIVE [facility] Comment on above: Performed By: #### M G, CMP, TSH, T7, BNP #### [facility] [address] [place] [address] Dr. Glenys Holly pH (U) 6.0 [pH] Normal 5-9 [facility] Comment on above: Performed By: #### M G, CMP, TSH, T7, BNP #### [facility] [address] [place] [address] Dr. Glenys Holly RBC 2-5 Abnormal 0-2 [facility] Comment on above: Performed By: #### M G, CMP, TSH, T7, BNP #### [facility] [address] [place] [address] Dr. Glenys Holly SPEC GRAVITY 1.010 Normal 1.005-<=1.0 25 [facility] Comment on above: Performed By: #### M G, CMP, TSH, T7, BNP #### [facility] [address] [address] [address] Glenys Holly UA PROTEIN TRACE Normal NEGATIVE/ TRACE [facility] Comment on above: Performed By: #### M G, CMP, TSH, T7, BNP #### [facility] [address] [address] [address] Glenys Holly Urobilinogen Qn (U) 0.2 {Phoebe'U}/dL Normal 0.2 - 1. 0 [facility] Comment on above: Performed By: #### M G, CMP, TSH, T7, BNP #### [facility] [address] [address] [address] Glenys Holly WBC NONE SEEN Normal NONE SEEN [facility] Comment on above: Performed By: #### M G, CMP, TSH, T7, BNP #### [facility] [address] [address] [address] Glenys Holly XR CHEST 1 Von [...] SUPA LOZANO Date: 2022-05-05 07:41 Normal [facility] CULTURE URINEon 03-30-2022 CULTURE URINE Culture Observations : GREATER THAN 4 ORGANISMS PRESENT. PLEASE RESUBMIT CLEAN CATCH MID-STREAM URINE IF CLINICALLY INDICATED. Normal [facility] Comment on above: Performed By: #### U RCX ####[facility] [id number] [place], [place] [address]UkDr. Glenys Holly CBC W MANUAL DIFFon 03-29-20 22 ATYPICAL LYMPH # Normal [facility] Comment on above: Performed By: #### M G, CMP, TSH, T7, BNP #### [facility] [address] [address] [address] Glenys Holly ATYPICAL LYMPH % Normal [facility] Comment on above: Performed By: #### M G, CMP, TSH, T7, BNP #### [facility] [address] [address] [address] Glenys Holly BAND # Normal 0.0-0.3 [facility] Comment on above: Performed By: #### M G, CMP, TSH, T7, BNP #### [facility] [address] [address] [address] Glenys Holly BAND % Normal 0-5 [facility] Comment on above: Performed By: #### M G, CMP, TSH, T7, BNP #### [facility] [address] [place] [address] Dr. Glenys Holly BASOM # 0.20 103/ul Critically high 0.00-0.10 [facility] Comment on above: Performed By: #### M G, CMP, TSH, T7, BNP #### [facility] [address] [address] [address] Glenys Holly BASOM % 1.0 % Normal 0.2-2.0 [facility] Comment on above: Performed By: #### M G, CMP, TSH, T7, BNP #### [facility] [address] [address] [address] Glenys Holly BLAST # Normal [facility] Comment on above: Performed By: #### M G, CMP, TSH, T7, BNP #### [facility] [address] [address] [address] Glenys Holly BLAST % Normal [facility] Comment on above: Performed By: #### M G, CMP, TSH, T7, BNP #### [facility] [address] [address] [address] Glenys Holly CORRECTED WBC Normal 4.0-11.0 [facility] Comment on above: Performed By: #### M G, CMP, TSH, T7, BNP #### [facility] [address] [address] [address] Glenys Holly EOS # 0.00 103/ul Normal 0.00-0.70 [facility] Comment on above: Performed By: #### M G, CMP, TSH, T7, BNP #### [facility] [address] [address] [address] Glenys Holly EOS% 0.0 % Critically low 0.9-7.0 [facility] Comment on above: Performed By: #### M G, CMP, TSH, T7, BNP #### [facility] [address] [address] [address] Glenys Holly HCT 45.0 % Normal 36.0-48.0 [facility] Comment on above: Performed By: #### M G, CMP, TSH, T7, BNP #### [facility] [address] [place] [address] Dr. Glenys Holly HGB 15.2 g/dl Normal 12.0-16.0 [facility] Comment on above: Performed By: #### M G, CMP, TSH, T7, BNP #### [facility] [address] [address] [address] Glenys Holly LYMPHM # 2.80 103/ul Normal 1.20-3.80 [facility] Comment on above: Performed By: #### M G, CMP, TSH, T7, BNP #### [facility] [address] [address] [address] Glenys Holly LYMPHM% 14.0 % Critically low 20.5-60.0 [facility] Comment on above: Performed By: #### M G, CMP, TSH, T7, BNP #### [facility] [address] [place] [address] Dr. Glenys Holly MCH 30.6 pg Normal 26.7-34.0 [facility] Comment on above: Performed By: #### M G, CMP, TSH, T7, BNP #### [facility] [address] [place] [address] Dr. Glenys Holly MCHC 33.8 g/dl Normal 29.9-35.2 [facility] Comment on above: Performed By: #### M G, CMP, TSH, T7, BNP #### [facility] [address] [address] [address] Glenys Holly MCV 90.7 fL Normal 81.0-99.0 [facility] Comment on above: Performed By: #### M G, CMP, TSH, T7, BNP #### [facility] [address] [address] [address] Glenys Holly METAMYELOCYTE # Normal [facility] Comment on above: Performed By: #### M G, CMP, TSH, T7, BNP #### [facility] [address] [address] [address] Glenys Holly METAMYELOCYTE % Normal [facility] Comment on above: Performed By: #### M G, CMP, TSH, T7, BNP #### [facility] [address] [place] [address] Dr. Glenys Holly MONOM# 2.40 103/ul Critically high 0.30-0.80 [facility] Comment on above: Performed By: #### M G, CMP, TSH, T7, BNP #### [facility] [address] [place] [address] Dr. Glenys Holly MONOM% 12.0 % Normal 1.7-12.0 [facility] Comment on above: Performed By: #### M G, CMP, TSH, T7, BNP #### [facility] [address] [place] [address] Dr. Glenys Holly MPV 11.5 fL Normal 9.5-13.5 [facility] Comment on above: Performed By: #### M G, CMP, TSH, T7, BNP #### [facility] [address] [address] [address] Glenys Holly MYELOCYTE # Normal [facility] Comment on above: Performed By: #### M G, CMP, TSH, T7, BNP #### [facility] [address] [address] [address] Glenys Holly MYELOCYTE % Normal [facility] Comment on above: Performed By: #### M G, CMP, TSH, T7, BNP #### [facility] [address] [place] [address] Dr. Glenys Holly NRBC Normal [facility] Comment on above: Performed By: #### M G, CMP, TSH, T7, BNP #### [facility] [address] [address] [address] Glenys Holly PLT 323 103/ul Normal 150-450 [facility] Comment on above: Performed By: #### M G, CMP, TSH, T7, BNP #### [facility] [address] [address] [address] Glenys Holly RBC 4.96 106/ul Normal 4.20-5.40 [facility] Comment on above: Performed By: #### M G, CMP, TSH, T7, BNP #### [facility] [address] [place] [address] Dr. Glenys Holly RDW 14.4 % Normal 11.0-15.0 [facility] Comment on above: Performed By: #### M G, CMP, TSH, T7, BNP #### [facility] [address] [place] [address] Dr. Glensy Holly SEG # 14.60 103/ul Critically high 1.40-6.50 [facility] Comment on above: Performed By: #### M G, CMP, TSH, T7, BNP #### [facility] [address] [place] [address] Dr. Glenys Holly SEG % 73.0 % Normal 43.0-75.0 [facility] Comment on above: Performed By: #### M G, CMP, TSH, T7, BNP #### [facility] [address] [place] [address] Dr. Glenys Holly WBC 20.0 103/ul Critically high 4.0-11.0 [facility] Comment on above: Performed By: #### M G, CMP, TSH, T7, BNP #### [facility] [address] [place] [address] ABD/PELV W CONon [...] RAMIRO SPENCER Date: 2022-03-29 11:27 Normal [facility] ER URINE PROFILEon 2 Bilirubin Ql (U) Negative Normal NEGATIVE [facility] Comment on above: Performed By: #### M G, CMP, TSH, T7, BNP #### [facility] [address] [address] [address] Glenys Holly Clarity (U) CLEAR Normal CLEAR [facility] Comment on above: Performed By: #### M G, CMP, TSH, T7, BNP #### [facility] [address] [place], [place] [address] Dr. Glenys Holly Color (U) LT. YELLOW Normal YELLOW [facility] Comment on above: Performed By: #### M G, CMP, TSH, T7, BNP #### [facility] [address] [address] [address] Glenys Holly ERUAHFranky A micrscopic examina tion will be performed if indicated. Normal [facility] Comment on above: Performed By: #### M G, CMP, TSH, T7, BNP #### [facility] [address] [address] [address] Glenys Holly Glucose Ql (U) Negative Normal NEGATIVE [facility] Comment on above: Performed By: #### M G, CMP, TSH, T7, BNP #### [facility] [address] [address] [address] Glenys Holly Hemoglobin Ql (U) MODERATE Abnormal NEGATIVE [facility] Comment on above: Performed By: #### M G, CMP, TSH, T7, BNP #### [facility] [address] [place] [address] Dr. Glenys Holly Ketones Ql (U) 15 mg/dl Abnormal NEGATIVE [facility] Comment on above: Performed By: #### M G, CMP, TSH, T7, BNP #### [facility] [address] [address] [address] Glenys Holly LEUKOCYTES LARGE Abnormal NEGATIVE [facility] Comment on above: Performed By: #### M G, CMP, TSH, T7, BNP #### [facility] [address] [address] [address] Glenys Holly Nitrite Ql (U) Negative Normal NEGATIVE [facility] Comment on above: Performed By: #### M G, CMP, TSH, T7, BNP #### [facility] [address] [address] [address] Glenys Holly pH (U) 6.5 [pH] Normal 5-9 [facility] Comment on above: Performed By: #### M G, CMP, TSH, T7, BNP #### [facility] [address] [address] [address] Glenys Holly SPEC GRAVITY 1.015 Normal 1.005-<=1.0 25 [facility] Comment on above: Performed By: #### M G, CMP, TSH, T7, BNP #### [facility] [address] [place] [address] Dr. Glenys Holly UA PROTEIN TRACE Normal NEGATIVE/ TRACE [facility] Comment on above: Performed By: #### M G, CMP, TSH, T7, BNP #### [facility] [address] [place] [address] Dr. Glenys Holly UR MICRO IND INDICATED Normal [facility] Comment on above: Performed By: #### M G, CMP, TSH, T7, BNP #### [facility] [address] [place] [address] Dr. Glenys Holly Urobilinogen Qn (U) 0.2 {Phoebe'U}/dL Normal 0.2 - 1. 0 [facility] Comment on above: Performed By: #### M G, CMP, TSH, T7, BNP #### [facility] [address] [place] [address] Dr. Glenys Holly LIPASEon 03-29-2022 Lipase [Catalytic activity/Vol] 62.0 U/L Critically low 73.0-393.0 [facility] Comment on above: Performed By: #### M G, CMP, TSH, T7, BNP #### [facility] [address] [place] [address] Dr. Glenys Holly PROF 14(COMP METB)on 022 Albumin [Mass/Vol] 3.7 g/dL Normal 3.4-5.0 [facility] Comment on above: Performed By: #### M G, CMP, TSH, T7, BNP #### [facility] [address] [place] [address] Dr. Glenys Holly Albumin/Globulin [Mass ratio] 1.2 {ratio} Normal [facility] Comment on above: Performed By: #### M G, CMP, TSH, T7, BNP #### [facility] [address] [place] [address] Dr. Glenys Holly ALP [Catalytic activity/Vol] 106 U/L Normal 46-116 [facility] Comment on above: Performed By: #### M G, CMP, TSH, T7, BNP #### [facility] [address] [place] [address] Dr. Glenys Holly ALT [Catalytic activity/Vol] 17 U/L Normal 14-59 [facility] Comment on above: Performed By: #### M G, CMP, TSH, T7, BNP #### [facility] [address] [address] [address] Glenys Holly Anion gap [Moles/Vol] 11.8 mmol/L Normal [facility] Comment on above: Performed By: #### M G, CMP, TSH, T7, BNP #### [facility] [address] [address] [address] Glenys Holly AST [Catalytic activity/Vol] 19 U/L Normal 15-37 [facility] Comment on above: Performed By: #### M G, CMP, TSH, T7, BNP #### [facility] [address] [place] [address] Dr. Glenys Holly Bilirubin [Mass/Vol] 0.8 mg/dL Normal 0.2-1.0 [facility] Comment on above: Performed By: #### M G, CMP, TSH, T7, BNP #### [facility] [address] [address] [address] Glenys Holly Calcium [Mass/Vol] 9.8 mg/dL Normal 8.5-10.1 [facility] Comment on above: Performed By: #### M G, CMP, TSH, T7, BNP #### [facility] [address] [place] [address] Dr. Glenys Holly Chloride [Moles/Vol] 101 mmol/L Normal 98-107 [facility] Comment on above: Performed By: #### M G, CMP, TSH, T7, BNP #### [facility] [address] [place] [address] Dr. Glenys Holly CO2 [Moles/Vol] 26.2 mmol/L Normal 21.0-32.0 [facility] Comment on above: Performed By: #### M G, CMP, TSH, T7, BNP #### [facility] [address] [place] [address] Dr. Glenys Holly Creatinine [Mass/Vol] 0.76 mg/dL Normal 0.55-1.02 [facility] Comment on above: Performed By: #### M G, CMP, TSH, T7, BNP #### [facility] [address] [address] [address] Glenys Holly EGFR-AF MALIAN >60 Normal >=60 [facility] Comment on above: Performed By: #### M G, CMP, TSH, T7, BNP #### [facility] [address] [address] [address] Glenys Holly EGFR-NON AF MALIAN >60 Normal >=60 [facility] Comment on above: Performed By: #### M G, CMP, TSH, T7, BNP #### [facility] [address] [place] [address] Dr. Glenys Holly Globulin (S) [Mass/Vol] 3.2 g/dL Normal [facility] Comment on above: Performed By: #### M G, CMP, TSH, T7, BNP #### [facility] [address] [place] [address] Dr. Glenys Holly Glucose [Mass/Vol] 103 mg/dL Normal 74-106 [facility] Comment on above: Performed By: #### M G, CMP, TSH, T7, BNP #### [facility] [address] [place] [address] Dr. Glenys Holly Potassium [Moles/Vol] 3.0 mmol/L Critically low 3.5-5.1 [facility] Comment on above: Performed By: #### M G, CMP, TSH, T7, BNP #### [facility] [address] [place] [address] Dr. Glenys Holly Protein [Mass/Vol] 6.9 g/dL Normal 6.4-8.2 [facility] Comment on above: Performed By: #### M G, CMP, TSH, T7, BNP #### [facility] [address] [place] [address] Dr. Glenys Holly Sodium [Moles/Vol] 136 mmol/L Normal 136-145 [facility] Comment on above: Performed By: #### M G, CMP, TSH, T7, BNP #### [facility] [address] [address] [address] Glenys Holly Urea nitrogen [Mass/Vol] 16.0 mg/dL Normal 7.0-18.0 [facility] Comment on above: Performed By: #### M G, CMP, TSH, T7, BNP #### [facility] [address] [address] [address] Glenys Holly Urea nitrogen/Creatinine [Mass ratio] 21.1 mg/mg Normal [facility] Comment on above: Performed By: #### M G, CMP, TSH, T7, BNP #### [facility] [address] [place] [address] Dr. Glenys Holly TROPONIN, HIGH SENSITIVITYon 03-29-2022 HSTROP 30.7 pg/mL Normal 4.0-51.3 [facility] Comment on above: Result Comment: CUT- OFF POINTS HAVE BEEN ESTABLISHED BASED ON THE FOURTH UNIVERSAL DEFINITIONS OF MYOCARDIAL INFARCTION. THE UPPER REFERENCE LIMIT (URL) OF TROPONIN, DEFINED THE 99TH PERCENTILE OF cTnI DISTRIBUTION IN A REFERENCE POPULATION, HAS BEEN CONFIRMED THE DECISION THRESHOLD FOR ID DIAGNOSIS. Performed By: #### M G, CMP, TSH, T7, BNP #### [facility] [address] [place] [address] Dr. Glenys Holly URINE MICROSCOPIC ONLYon BACTERIA MODERATE Abnormal NONE SEEN [facility] Comment on above: Performed By: #### M G, CMP, TSH, T7, BNP #### [facility] [address] [place] [address] Dr. Glenys Holly Bacteria identified Cx Nom (U) INDICATED Normal [facility] Comment on above: Performed By: #### M G, CMP, TSH, T7, BNP #### [facility] [address] [place] [address] Dr. Glenys Holly CA OX CRYSTALS MODERATE Normal [facility] Comment on above: Performed By: #### M G, CMP, TSH, T7, BNP #### [facility] [address] [place] [address] Dr. Glenys Holly CAST NONE SEEN Normal NONE SEEN [facility] Comment on above: Performed By: #### M G, CMP, TSH, T7, BNP #### [facility] [address] [address] [address] Glenys Holly Crystals LM Nom (Urine sed) SEEN Abnormal NONE SEEN [facility] Comment on above: Performed By: #### M G, CMP, TSH, T7, BNP #### [facility] [address] [address] [address] Glenys Holly Epithelial cells LM Ql (Urine sed) FEW Abnormal NONE SEEN /RARE [facility] Comment on above: Performed By: #### M G, CMP, TSH, T7, BNP #### [facility] [address] [address] [address] Glenys Holly MUCOUS NONE SEEN Normal NONE SEEN [facility] Comment on above: Performed By: #### M G, CMP, TSH, T7, BNP #### [facility] [address] [address] [address] Glenys Holly RBC 5-10 Abnormal 0-2 [facility] Comment on above: Performed By: #### M G, CMP, TSH, T7, BNP #### [facility] [address] [address] [address] Glenys Holly WBC 20-50 Abnormal NONE SEEN [facility] Comment on above: Performed By: #### M G, CMP, TSH, T7, BNP #### [facility] [address] [address] [address] Glenys Holly XR ABD FLAT UP_PA [...] RAMIRO SPENCER Date: 2022-03-29 09:27 Normal [facility] CT HEAD WO CONon 12-27-2021 CT [...] RAMIRO SPENCER Date: 2021-12-27 12:48 Normal [facility] Discharge Summaryon 08-18-19 18 Discharge Summary MR#: [id number] [facility] Pt. Name: Judith Khan Admitted: 08/11/2017 Discharged: [...] intraperitoneal bleeding. [facility].Upon arrival to the [facility], no other injuries were noted. The patientwas [...] 4-6 hours as needed for pain and [id number] mg b.i.d. for opioid related constipation.Electronically Signed by:Supa May M.D. 08/29/2017 12:01 P Supa May M.D. I personally saw this patient on the day of the encounter, performed thekey portion(s) of the service and participated in the management andconfirm the resident's documentation. Please note there may be anadditional personal documentation from me. Date Dict: 08/16/2017/10:11 A/Josh Palmer, MDDate Trans: 08/17/2017 06:00 [id number] Normal [facility] BASIC METABOLIC PANELon 03-0 Calcium 8.8 mg/dL Normal 8.6-10.3 [facility] Comment on above: Order Comment: No: D o not add to previous draw Performed By: #### 0 [id number], [id number] ####[facility] Chloride 97 mmol/L Low 98-107 [facility] Comment on above: Order Comment: No: D o not add to previous draw Performed By: #### 0 0121, [id number] ####[facility] [place] [address], [facility] CO2 33 mmol/L High 21-31 [facility] Comment on above: Order Comment: No: D o not add to previous draw Performed By: #### 0 0121, [id number] ####[facility] [place] [address], [facility] Creatinine 0.75 mg/dL Normal 0.60-1.20 [facility] Comment on above: Order Comment: No: D o not add to previous draw Performed By: #### 0 0121, 27237 ####[facility] eGFR (black) mL/min/{1.73_m2} Normal >60 [facility] Comment on above: Order Comment: No: D o not add to previous draw Result Comment: Calc ulation may not be valid for patients over 70 years Performed By: #### 0 0121, 64656 ####[facility] eGFR (non-black) mL/min/{1.73_m2} Normal >60 [facility] Comment on above: Order Comment: No: D o not add to previous draw Result Comment: Calc ulation may not be valid for patients over 70 years Performed By: #### 0 0121, 88309 ####[facility] Glucose mass conc 91 mg/dL Normal 70-100 [facility] Comment on above: Order Comment: No: D o not add to previous draw Performed By: #### 0 0121, 06055 ####[facility] Potassium molar conc 2.8 mmol/L Low 3.5-5.1 [facility] Comment on above: Order Comment: No: D o not add to previous draw Performed By: #### 0 0121, 16149 ####[facility] Sodium 137 mmol/L Normal 136-145 [facility] Comment on above: Order Comment: No: D o not add to previous draw Performed By: #### 0 0121, 66684 ####[facility] [place] [address], [facility] Urea nitrogen 13 mg/dL Normal 7-25 [facility] Comment on above: Order Comment: No: D o not add to previous draw Performed By: #### 0 0121, 27224 ####[facility] CBC COMPLETE BLOOD COUNTon 0 08-15-2017 Erythrocyte distribution width Auto Ratio (RBC) 14.6 % Normal 11.5-15.0 [facility] Comment on above: Order Comment: No: D o not add to previous draw Performed By: #### 5 6100, 11674 ####[facility] Erythrocytes (RBC) 4.05 10*6/uL Normal 3.80-5.00 [facility] Comment on above: Order Comment: No: D o not add to previous draw Performed By: #### 5 6100, 12326 ####[facility] Erythrocytes (RBC) 0 % Normal 0-0 [facility] Comment on above: Order Comment: No: D o not add to previous draw Performed By: #### 5 6100, 47352 ####[facility] Hematocrit (HCT) 36.8 % Normal 36.0-45.0 [facility] Comment on above: Order Comment: No: D o not add to previous draw Performed By: #### 5 6100, 92547 ####[facility].[address] Hemoglobin mass conc (Bld) 12.3 g/dL Normal 12.0-15.0 [facility] Comment on above: Order Comment: No: D o not add to previous draw Performed By: #### 5 6100, 54578 ####[facility] [place] [address], [facility] MCH 30.4 pg Normal 27.0-33.0 [facility] Comment on above: Order Comment: No: D o not add to previous draw Performed By: #### 5 6100, 42023 ####[facility] [place] [address], [facility] MCHC mass conc (RBC) 33.4 g/dL Normal 32.0-35.0 [facility] Comment on above: Order Comment: No: D o not add to previous draw Performed By: #### 5 6101, 66740 ####[address] MCV 90.9 fL Normal 82.0-98.0 [facility] Comment on above: Order Comment: No: D o not add to previous draw Performed By: #### 5 6101, 02675 ####[facility] [place] [address] PLAT CNT 196 10*3/uL Normal 150-400 [facility] Comment on above: Order Comment: No: D o not add to previous draw Performed By: #### 5 6101, 09403 ####[place] [address] WBC (Leukocytes) 11.0 10*3/uL High 4.0-10.6 [facility] Comment on above: Order Comment: No: D o not add to previous draw Performed By: #### 5 6101, 86741 ####[address] PORTABLE CHEST 1 VIEWon 03-0 PORTABLE CHEST 1 VIEW [facility] Absjwbldi[address] [place] [address] Patient Name: JUDITH KHAN : 1945Sex: FAge: Race: WhiteMRN: [id number]. Location: [id number] Status: IVisit #: [id number] Date: 08/15/2017 7:05:00 AMCompleted Date: 08/15/2017 07:54 AMRequesting Provider: JOSH PALMER Attending Provider: ALEXANDER OLSON Report Copy To: Signs & Symptoms: O2 DesaturationHistory: Patient history not availableComments: R/O EffusionExam: PORTABLE CHEST 1 VIEWAccession #: [id number] POR TABLE CHEST 1 VIEW 08/15/2017 7:54 [...] findings. Electronically signed by:Nina Beaver. Transcribed by: [email or web address], User Resident: JAZMIN MARElectronically Signed by: NINA BEAVER @ 08/15/2017 10:25 AMI personally read this/these film(s) with this resident Normal [facility] Comment on above: Order Comment: R/O E ffusion BASIC METABOLIC PANELon Calcium 8.6 mg/dL Normal 8.6-10.3 [facility] Comment on above: Order Comment: No: D o not add to previous draw Performed By: #### 0 0121, 88900 ####[facility] [place] [address], [place] Chloride 103 mmol/L Normal 98-107 [facility] Comment on above: Order Comment: No: D o not add to previous draw Performed By: #### 0 0121, 44501 ####[facility] [place] [address], [facility] CO2 30 mmol/L Normal 21-31 [facility] Comment on above: Order Comment: No: D o not add to previous draw Performed By: #### 0 0121, 70173 ####[facility] [place] [address], [facility] Creatinine 0.60 mg/dL Normal 0.60-1.20 [facility] Comment on above: Order Comment: No: D o not add to previous draw Performed By: #### 0 0121, 47761 ####[facility] [place] [address], [facility] eGFR (black) mL/min/{1.73_m2} Normal >60 [facility] Comment on above: Order Comment: No: D o not add to previous draw Result Comment: Calc ulation may not be valid for patients over 70 years Performed By: #### 0 0121, 47348 ####[facility] [place] [address], [facility] eGFR (non-black) mL/min/{1.73_m2} Normal >60 [facility] Comment on above: Order Comment: No: D o not add to previous draw Result Comment: Calc ulation may not be valid for patients over 70 years Performed By: #### 0 0121, 27470 ####[facility] [place] [address], [facility] Glucose mass conc 81 mg/dL Normal 70-100 [facility] Comment on above: Order Comment: No: D o not add to previous draw Performed By: #### 0 0121, 34690 ####[facility] [facility].[place] [id number], [facility] Potassium molar conc 3.0 mmol/L Low 3.5-5.1 [facility] Comment on above: Order Comment: No: D o not add to previous draw Performed By: #### 0 0121, 71172 ####[facility] Sodium 138 mmol/L Normal 136-145 [facility] Comment on above: Order Comment: No: D o not add to previous draw Performed By: #### 0 0121, 04924 ####[facility] Urea nitrogen 12 mg/dL Normal 7-25 [facility] Comment on above: Order Comment: No: D o not add to previous draw Performed By: #### 0 0121, 09384 ####[facility] CBC COMPLETE BLOOD COUNTon 0 08-14-2017 Erythrocyte distribution width Auto Ratio (RBC) 14.9 % Normal 11.5-15.0 [facility] Comment on above: Order Comment: No: D o not add to previous draw Performed By: #### 0 0121, 04767 ####[facility] Erythrocytes (RBC) 3.80 10*6/uL Normal 3.80-5.00 [facility] Comment on above: Order Comment: No: D o not add to previous draw Performed By: #### 0 0121, 32604 ####[facility] Erythrocytes (RBC) 0 % Normal 0-0 [facility] Comment on above: Order Comment: No: D o not add to previous draw Performed By: #### 0 0121, 37390 ####[facility] Hematocrit (HCT) 34.3 % Low 36.0-45.0 [facility] Comment on above: Order Comment: No: D o not add to previous draw Performed By: #### 0 0121, 02352 ####[facility] Hemoglobin mass conc (Bld) 11.7 g/dL Low 12.0-15.0 [facility] Comment on above: Order Comment: No: D o not add to previous draw Performed By: #### 0 0121, 65664 ####[facility] MCH 30.8 pg Normal 27.0-33.0 [facility] Comment on above: Order Comment: No: D o not add to previous draw Performed By: #### 0 0121, 67011 ####[facility] MCHC mass conc (RBC) 34.1 g/dL Normal 32.0-35.0 [facility] Comment on above: Order Comment: No: D o not add to previous draw Performed By: #### 0 0121, 19015 ####[facility] MCV 90.3 fL Normal 82.0-98.0 [facility] Comment on above: Order Comment: No: D o not add to previous draw Performed By: #### 0 0121, 24550 ####[facility] PLAT CNT 134 10*3/uL Low 150-400 [facility] Comment on above: Order Comment: No: D o not add to previous draw Performed By: #### 0 0121, 38048 ####[facility] WBC (Leukocytes) 11.5 10*3/uL High 4.0-10.6 [facility] Comment on above: Order Comment: No: D o not add to previous draw Performed By: #### 0 0121, 13420 ####[facility] [place] [address], [facility] MAGNESIUM BLOODon 08-14-2017 Magnesium 1.9 mg/dL Normal 1.9-2.7 [facility] Comment on above: Order Comment: No: D o not add to previous draw Performed By: #### 0 0121, 71701 ####[facility] [place] [address], [facility] PHOSPHORUS BLOODon 8 Phosphate 2.5 mg/dL Normal 2.5-5.0 [facility] Comment on above: Order Comment: No: D o not add to previous draw Performed By: #### 0 0121, 91899 ####[address] [place] [address] PORTABLE CHEST 1 VIEWon PORTABLE CHEST 1 VIEW [facility] Fsgxasihc[address] [place] [address] Patient Name: JUDITH KHAN : 1945Sex: FAge: Race: WhiteMRN: [id number]. Location: [id number] Status: IVisit #: [id number] Date: 08/14/2017 8:00:00 AMCompleted Date: 08/14/2017 08:34 AMRequesting Provider: JOSH PALMER Attending Provider: ALEXANDER OLSON Report Copy To: Signs & Symptoms: O2 DesaturationHistory: Patient history not availableComments: R/O AtelectasisExam: PORTABLE CHEST 1 VIEWAccession #: [id number] POR TABLE CHEST 1 VIEW 08/14/2017 8:34 [...] findings. Electronically signed by:Kristian Nascimento. Transcribed by: [email or web address], User Resident: JAZMIN MARElectronically Signed by: KRISTIAN NASCIMENTO @ 08/14/2017 09:18 PMI personally read this/these film(s) with this resident Normal [facility] Comment on above: Order Comment: R/O A telectasis BASIC METABOLIC PANELon 03-0 Calcium 8.4 mg/dL Low 8.6-10.3 [facility] Comment on above: Order Comment: No: D o not add to previous draw Performed By: #### 0 0121, 38570 ####[facility] [place] [address], [facility] Chloride 109 mmol/L High 98-107 [facility] Comment on above: Order Comment: No: D o not add to previous draw Performed By: #### 0 0121, 65896 ####[facility] CO2 30 mmol/L Normal 21-31 [facility] Comment on above: Order Comment: No: D o not add to previous draw Performed By: #### 0 0121, 43925 ####[facility] Creatinine 0.62 mg/dL Normal 0.60-1.20 [facility] Comment on above: Order Comment: No: D o not add to previous draw Performed By: #### 0 0121, 15474 ####[facility] eGFR (black) mL/min/{1.73_m2} Normal >60 [facility] Comment on above: Order Comment: No: D o not add to previous draw Result Comment: Calc ulation may not be valid for patients over 70 years Performed By: #### 0 0121, 53890 ####[facility] eGFR (non-black) mL/min/{1.73_m2} Normal >60 [facility] Comment on above: Order Comment: No: D o not add to previous draw Result Comment: Calc ulation may not be valid for patients over 70 years Performed By: #### 0 0121, 10853 ####[facility] Glucose mass conc 99 mg/dL Normal 70-100 [facility] Comment on above: Order Comment: No: D o not add to previous draw Performed By: #### 0 0121, 23072 ####[place] [address] Potassium molar conc 3.2 mmol/L Low 3.5-5.1 [facility] Comment on above: Order Comment: No: D o not add to previous draw Performed By: #### 0 0121, 33310 ####[facility] [place] [address], [facility] Sodium 143 mmol/L Normal 136-145 [facility] Comment on above: Order Comment: No: D o not add to previous draw Performed By: #### 0 0121, 98760 ####[facility] [place] [address], [facility] Urea nitrogen 14 mg/dL Normal 7-25 [facility] Comment on above: Order Comment: No: D o not add to previous draw Performed By: #### 0 0121, 95528 ####[facility] CBC COMPLETE BLOOD COUNTon 0 08-13-2017 Erythrocyte distribution width Auto Ratio (RBC) 15.9 % High 11.5-15.0 [facility] Comment on above: Order Comment: No: D o not add to previous draw Performed By: #### 0 0121, 75072 ####[facility] Erythrocytes (RBC) 0 % Normal 0-0 [facility] Comment on above: Order Comment: No: D o not add to previous draw Performed By: #### 0 0121, 58392 ####[place] [address] Erythrocytes (RBC) 3.76 10*6/uL Low 3.80-5.00 [facility] Comment on above: Order Comment: No: D o not add to previous draw Performed By: #### 0 0121, 15083 ####[facility] [place] [address], [facility] Hematocrit (HCT) 34.3 % Low 36.0-45.0 [facility] Comment on above: Order Comment: No: D o not add to previous draw Performed By: #### 0 0121, 20909 ####[facility] Hemoglobin mass conc (Bld) 11.4 g/dL Low 12.0-15.0 [facility] Comment on above: Order Comment: No: D o not add to previous draw Performed By: #### 0 0121, 87226 ####[facility] [place] [address], [facility] MCH 30.3 pg Normal 27.0-33.0 [facility] Comment on above: Order Comment: No: D o not add to previous draw Performed By: #### 0 0121, 86897 ####[facility] [facility].[address] MCHC mass conc (RBC) 33.2 g/dL Normal 32.0-35.0 [facility] Comment on above: Order Comment: No: D o not add to previous draw Performed By: #### 0 0121, 04812 ####[facility] [facility].[address] MCV 91.2 fL Normal 82.0-98.0 [facility] Comment on above: Order Comment: No: D o not add to previous draw Performed By: #### 0 0121, 98674 ####[facility] PLAT CNT 95 10*3/uL Low 150-400 [facility] Comment on above: Order Comment: No: D o not add to previous draw Performed By: #### 0 0121, 63880 ####[facility] [place] [address], [facility] WBC (Leukocytes) 9.1 10*3/uL Normal 4.0-10.6 [facility] Comment on above: Order Comment: No: D o not add to previous draw Performed By: #### 0 0121, 75470 ####[facility] [facility] [place] [address], [facility] MAGNESIUM BLOODon 03-05-2018 Magnesium 1.8 mg/dL Low 1.9-2.7 [facility] Comment on above: Order Comment: No: D o not add to previous draw Performed By: #### 0 0121, 26097 ####[facility] [place] [address], [facility] PHOSPHORUS BLOODon 8 Phosphate 1.9 mg/dL Low 2.5-5.0 [facility] Comment on above: Order Comment: No: D o not add to previous draw Performed By: #### 0 0121, 73987 ####[facility] [place] [address], [facility] BASIC METABOLIC PANELon Calcium 8.4 mg/dL Low 8.6-10.3 [facility] Comment on above: Order Comment: No: D o not add to previous draw Performed By: #### 0 0121, 51439 ####[facility] [place] [address], [facility] Chloride 113 mmol/L High 98-107 [facility] Comment on above: Order Comment: No: D o not add to previous draw Performed By: #### 0 0121, 71285 ####[facility] [place] [address], [facility] CO2 25 mmol/L Normal 21-31 [facility] Comment on above: Order Comment: No: D o not add to previous draw Performed By: #### 0 0121, 55910 ####[facility] [place] [address], [facility] Creatinine 0.75 mg/dL Normal 0.60-1.20 [facility] Comment on above: Order Comment: No: D o not add to previous draw Performed By: #### 0 0121, 81332 ####[facility] [place] [address], [place] eGFR (black) mL/min/{1.73_m2} Normal >60 [facility] Comment on above: Order Comment: No: D o not add to previous draw Result Comment: Calc ulation may not be valid for patients over 70 years Performed By: #### 0 0121, 50409 ####[facility] [place] [address], [facility] eGFR (non-black) mL/min/{1.73_m2} Normal >60 [facility] Comment on above: Order Comment: No: D o not add to previous draw Result Comment: Calc ulation may not be valid for patients over 70 years Performed By: #### 0 0121, 56326 ####[facility] [place] [address], [facility] Glucose mass conc 116 mg/dL High 70-100 [facility] Comment on above: Order Comment: No: D o not add to previous draw Performed By: #### 0 0121, 20503 ####[facility] [place] [address], [facility] Potassium molar conc 3.6 mmol/L Normal 3.5-5.1 [facility] Comment on above: Order Comment: No: D o not add to previous draw Performed By: #### 0 0121, 94554 ####[facility] [place] [address], [facility] Sodium 144 mmol/L Normal 136-145 [facility] Comment on above: Order Comment: No: D o not add to previous draw Performed By: #### 0 0121, 60394 ####[facility] [id number], [facility] Urea nitrogen 16 mg/dL Normal 7-25 [facility] Comment on above: Order Comment: No: D o not add to previous draw Performed By: #### 0 0121, 36907 ####[facility] CBC COMPLETE BLOOD COUNTon 0 08-12-2017 Erythrocyte distribution width Auto Ratio (RBC) 16.3 % High 11.5-15.0 [facility] Comment on above: Order Comment: No: D o not add to previous draw Performed By: #### 0 0121, 13857 ####[facility] Erythrocytes (RBC) 4.15 10*6/uL Normal 3.80-5.00 [facility] Comment on above: Order Comment: No: D o not add to previous draw Performed By: #### 0 0121, 69389 ####[facility] Erythrocytes (RBC) 0 % Normal 0-0 [facility] Comment on above: Order Comment: No: D o not add to previous draw Performed By: #### 0 0121, 28319 ####[facility] Hematocrit (HCT) 37.6 % Normal 36.0-45.0 [facility] Comment on above: Order Comment: No: D o not add to previous draw Performed By: #### 0 0121, 92832 ####[facility] Hemoglobin mass conc (Bld) 12.5 g/dL Normal 12.0-15.0 [facility] Comment on above: Order Comment: No: D o not add to previous draw Performed By: #### 0 0121, 96169 ####[facility] MCH 30.1 pg Normal 27.0-33.0 [facility] Comment on above: Order Comment: No: D o not add to previous draw Performed By: #### 0 0121, 46819 ####[facility] MCHC mass conc (RBC) 33.2 g/dL Normal 32.0-35.0 [facility] Comment on above: Order Comment: No: D o not add to previous draw Performed By: #### 0 0121, 69508 ####[facility] [place] [address], [facility] MCV 90.6 fL Normal 82.0-98.0 [facility] Comment on above: Order Comment: No: D o not add to previous draw Performed By: #### 0 0121, 15136 ####[facility] [place] [address], [facility] PLAT CNT 89 10*3/uL Low 150-400 [facility] Comment on above: Order Comment: No: D o not add to previous draw Performed By: #### 0 0121, 99411 ####[facility] [place] [address], [facility] WBC (Leukocytes) 13.5 10*3/uL High 4.0-10.6 [facility] Comment on above: Order Comment: No: D o not add to previous draw Performed By: #### 0 0121, 10298 ####[facility] HEMATOCRITon 08-12-2017 Hematocrit (HCT) 37.6 % Normal 36.0-45.0 [facility] Comment on above: Order Comment: No: D o not add to previous draw Performed By: #### 0 0121, 52192 ####[facility] [place] [address], [facility] HEMOGLOBINon 08-12-2017 Hemoglobin mass conc (Bld) 12.6 g/dL Normal 12.0-15.0 [facility] Comment on above: Order Comment: No: D o not add to previous drawLAB DRAW NOW - PER CECY MCELROY Performed By: #### 0 0121, 90782 ####[facility] MAGNESIUM BLOODon 08-12-2017 Magnesium 1.9 mg/dL Normal 1.9-2.7 [facility] Comment on above: Order Comment: No: D o not add to previous draw Performed By: #### 0 0121, 44230 ####[address] [address], [facility] PHOSPHORUS BLOODon 8 Phosphate 2.1 mg/dL Low 2.5-5.0 [facility] Comment on above: Order Comment: No: D o not add to previous draw Performed By: #### 0 0121, 08926 ####[address] PORTABLE CHEST 1 VIEWon PORTABLE CHEST 1 VIEW [facility] K[address] [place], [place] [address] Patient Name: JUDITH KHAN : 1945Sex: FAge: Race: WhiteMRN: [id number]. Location: [id number] Status: IVisit #: [id number] Date: 08/12/2017 7:00:00 AMCompleted Date: 08/12/2017 09:16 AMRequesting Provider: SHANON HERNANDEZ Attending Provider: ALEXANDER OLSON Report Copy To: Signs & Symptoms: O2 DesaturationHistory: Patient history not availableComments: R/O AtelectasisExam: PORTABLE CHEST 1 VIEWAccession #: [id number] POR TABLE CHEST 1 VIEW 08/12/2017 9:16 [...] findings. Electronically signed by:Kristian Nascimento. Transcribed by: [email or web address], User Resident: ANDRZEJ TORRESElectronically Signed by: KRISTIAN NASCIMENTO @ 08/12/2017 12:27 PMI personally read this/these film(s) with this resident Normal [facility] Comment on above: Order Comment: R/O A telectasis ALCOHOLon 08-11-2017 Ethanol NONE DETECTED Normal [facility] Comment on above: Result Comment: Divi de by 1000 to convert mg/dL to percent. Example: 100mg/dL = 0.1%. Performed By: #### 1 0054, [id number] ####[facility] [place] [address], [facility] APTTon 08-11-2017 aPTT 42.8 s High 25.0-35.0 [facility] Comment on above: Order Comment: No: [...] FOR THIS PURPOSE. Performed By: #### 1 ####[facility] aPTT 27.2 s Normal 25.0-35.0 [facility] Comment on above: Result Comment: ALL [...] THIS PURPOSE. Performed By: #### 5 6101, [id number] ####[facility] ARTERIAL BLOOD GAS WITH ICAo n 08-11-2017 BASE EXCESS -7 mmol/L Low -2-2 [facility] Comment on above: Performed By: #### 1 ####[facility] [place] [address], [facility] Bicarbonate (HCO3) 18 mmol/L Low 23-27 [facility] Comment on above: Performed By: #### 1 ####[facility] [facility] [place] [address], [facility] CO2 34 mmHg Low 35-45 [facility] Comment on above: Performed By: #### 1 ####[facility] [place] [address], [facility] DELIVERY SYSTEMS MV Normal [facility] Comment on above: Performed By: #### ####[facility] [place] [address], [facility] FIO2 40 % Normal 21-100 [facility] Comment on above: Performed By: #### 1 ####[facility] [place] [address], [place] IONIZED CALCIUM 1.13 mmol/L Normal 1.13-1.32 [facility] Comment on above: Performed By: #### 1 ####[facility] [place] [address], [place] MIN VOLUME 7.2 Normal [facility] Comment on above: Performed By: #### 1 ####[facility] [place] [address], [place] MODALITY AC Normal [facility] Comment on above: Performed By: #### 1 ####[facility] [place] [address], [place] O2 saturation 95.5 % Normal 94.0-97.0 [facility] Comment on above: Performed By: #### 1 ####[facility] [place] [address], [place] Oxygen in arterial blood 161 mm[Hg] Critically high 75-100 [facility] Comment on above: Performed By: #### 1 ####[facility] [place] [address], [place] PEEP 5.0 CMH20 Normal [facility] Comment on above: Performed By: #### 1 ####[facility] [place] [address], [place] PF RATIO 403 mmHg High 50-400 [facility] Comment on above: Performed By: #### 1 ####[facility] [place] [address], [place] pH of blood 7.33 [pH] Low 7.35-7.45 [facility] Comment on above: Performed By: #### 1 ####[facility] Respiratory rate 16 /min Normal [facility] Comment on above: Performed By: #### 1 ####[facility] [place] [address], [facility] TIDAL VOLUME (VT) CC 450 Normal [facility] Comment on above: Performed By: #### 1 ####[facility] [place] [address], [facility] BASE EXCESS -9 mmol/L Low -2-2 [facility] Comment on above: Order Comment: RESUL TS CHECKED AND CALLED. ACCURATELY READ BACK BY DAT Performed By: #### 1 ####[facility] Bicarbonate (HCO3) 18 mmol/L Low 23-27 [facility] Comment on above: Order Comment: RESUL TS CHECKED AND CALLED. ACCURATELY READ BACK BY DAT Performed By: #### 1 ####[facility] [facility] [place] [address], [facility] CO2 44 mmHg Normal 35-45 [facility] Comment on above: Order Comment: RESUL TS CHECKED AND CALLED. ACCURATELY READ BACK BY DAT Performed By: #### 1 ####[facility] [place] [address], [facility] IONIZED CALCIUM 1.05 mmol/L Low 1.13-1.32 [facility] Comment on above: Order Comment: RESUL TS CHECKED AND CALLED. ACCURATELY READ BACK BY DAT Performed By: #### 1 ####[facility] [place] [address], [facility] O2 saturation 96.9 % Normal 94.0-97.0 [facility] Comment on above: Order Comment: RESUL TS CHECKED AND CALLED. ACCURATELY READ BACK BY DAT Performed By: #### 1 53, ####[facility] [facility].[address] Oxygen in arterial blood 532 mm[Hg] Critically high 75-100 [facility] Comment on above: Order Comment: RESUL TS CHECKED AND CALLED. ACCURATELY READ BACK BY DAT Performed By: #### 1 53, ####[facility] [facility] pH of blood 7.22 [pH] Critically low 7.35-7.45 [facility] Comment on above: Order Comment: RESUL TS CHECKED AND CALLED. ACCURATELY READ BACK BY DAT Performed By: #### 1 53, ####[facility] [facility].[address] BASIC METABOLIC PANELon 03-0 Calcium 8.1 mg/dL Low 8.6-10.3 [facility] Comment on above: Order Comment: No: D o not add to previous draw Performed By: #### 1 53, ####[facility] [facility].[address] Chloride 116 mmol/L High 98-107 [facility] Comment on above: Order Comment: No: D o not add to previous draw Performed By: #### 1 53, ####[facility] [facility].[address] Creatinine 0.85 mg/dL Normal 0.60-1.20 [facility] Comment on above: Order Comment: No: D o not add to previous draw Performed By: #### 1 53, ####[facility] [facility].[address] Glucose mass conc 109 mg/dL High 70-100 [facility] Comment on above: Order Comment: No: D o not add to previous draw Performed By: #### 1 53, ####[facility] [place] [address], [place] Potassium molar conc 4.9 mmol/L Normal 3.5-5.1 [facility] Comment on above: Order Comment: No: D o not add to previous draw Performed By: #### 1 53, ####[facility] [place] [address], [place] Sodium 142 mmol/L Normal 136-145 [facility] Comment on above: Order Comment: No: D o not add to previous draw Performed By: #### 1 53, ####[facility] [place] [address], [place] Urea nitrogen 16 mg/dL Normal 7-25 [facility] Comment on above: Order Comment: No: D o not add to previous draw Performed By: #### 1 53, ####[facility] [place] [address], [place] Calcium 7.9 mg/dL Low 8.6-10.3 [facility] Comment on above: Order Comment: No: D o not add to previous draw Performed By: #### 1 53, ####[facility] [place] [address], [place] Chloride 113 mmol/L High 98-107 [facility] Comment on above: Order Comment: No: D o not add to previous draw Performed By: #### 1 53, ####[facility] [place] [address], [place] CO2 22 mmol/L Normal 21-31 [facility] Comment on above: Order Comment: No: D o not add to previous draw Performed By: #### 1 53, ####[facility] [place] [address], [place] Creatinine 0.68 mg/dL Normal 0.60-1.20 [facility] Comment on above: Order Comment: No: D o not add to previous draw Performed By: #### 1 53, ####[facility] [place] [address], [facility] eGFR (black) mL/min/{1.73_m2} Normal >60 [facility] Comment on above: Order Comment: No: D o not add to previous draw Result Comment: Calc ulation may not be valid for patients over 70 years Performed By: #### 1 53, ####[facility] eGFR (non-black) mL/min/{1.73_m2} Normal >60 [facility] Comment on above: Order Comment: No: D o not add to previous draw Result Comment: Calc ulation may not be valid for patients over 70 years Performed By: #### 1 53, ####[facility] [place] [address], [facility] Glucose mass conc 141 mg/dL High 70-100 [facility] Comment on above: Order Comment: No: D o not add to previous draw Performed By: #### 1 53, ####[facility] [place] [address], [facility] Potassium molar conc 3.3 mmol/L Low 3.5-5.1 [facility] Comment on above: Order Comment: No: D o not add to previous draw Performed By: #### 1 53, ####[facility] [place] [address], [facility] Sodium 139 mmol/L Normal 136-145 [facility] Comment on above: Order Comment: No: D o not add to previous draw Performed By: #### 1 53, ####[facility] Urea nitrogen 12 mg/dL Normal 7-25 [facility] Comment on above: Order Comment: No: D o not add to previous draw Performed By: #### 1 53, ####[address] CBC W/DIFFon 08-11-2017 ABS BASOPHILS 0.0 10*3/uL Normal 0.0-0.2 [facility] Comment on above: Performed By: #### 1 53, ####[facility] ABS IMM GRANS 0.0 10*3/uL Normal 0.0-0.2 [facility] Comment on above: Performed By: #### 1 53, ####[address] Basophils Auto #/vol (Bld) 0.1 % Normal 0.0-1.0 [facility] Comment on above: Performed By: #### 1 53, ####[facility] Eosinophils 0.0 10*3/uL Normal 0.0-0.5 [facility] Comment on above: Performed By: #### 1 53, ####[place] [id number] Eosinophils/100 leukocytes 0.1 % Normal 0.0-6.0 [facility] Comment on above: Performed By: #### 1 53, ####[facility] Erythrocyte distribution width Auto Ratio (RBC) 15.1 % High 11.5-15.0 [facility] Comment on above: Performed By: #### 1 53, ####[facility] [facility].[address] Erythrocytes (RBC) 0 % Normal 0-0 [facility] Comment on above: Performed By: #### 1 ####[facility] [facility].[address] Erythrocytes (RBC) 4.46 10*6/uL Normal 3.80-5.00 [facility] Comment on above: Performed By: #### 1 ####[facility] [facility].[address] Hematocrit (HCT) 40.3 % Normal 36.0-45.0 [facility] Comment on above: Performed By: #### 1 ####[place] [address] [facility].[address] Hemoglobin mass conc (Bld) 13.5 g/dL Normal 12.0-15.0 [facility] Comment on above: Performed By: #### 1 ####[place] [address] [facility].[address] IMMATURE GRANS 0.2 % Normal 0.0-1.0 [facility] Comment on above: Performed By: #### 1 ####[place] [address] [facility].[address] Lymphocytes 0.9 10*3/uL Low 1.2-4.0 [facility] Comment on above: Performed By: #### 1 ####[place] [address] [facility].[address] Lymphocytes/100 leukocytes 5.8 % Low 20.0-45.0 [facility] Comment on above: Performed By: #### 1 ####[address] MCH 30.3 pg Normal 27.0-33.0 [facility] Comment on above: Performed By: #### 1 53, ####[facility] MCHC mass conc (RBC) 33.5 g/dL Normal 32.0-35.0 [facility] Comment on above: Performed By: #### 1 53, ####[facility] [facility].[address] MCV 90.4 fL Normal 82.0-98.0 [facility] Comment on above: Performed By: #### 1 53, ####[facility] Monocytes 0.7 10*3/uL Normal 0.1-1.0 [facility] Comment on above: Performed By: #### 1 ####[facility] [facility].[address] MONOS 4.6 % Low 5.0-12.0 [facility] Comment on above: Performed By: #### 1 ####[facility] [facility].[address] Neutrophils 13.6 10*3/uL High 1.6-7.6 [facility] Comment on above: Performed By: #### 1 53, ####[facility] [facility].[address] Neutrophils/100 leukocytes 89.2 % High 40.0-72.0 [facility] Comment on above: Performed By: #### 1 53, ####[facility] [facility] PLAT CNT 94 10*3/uL Low 150-400 [facility] Comment on above: Result Comment: P = 126 Performed By: #### 1 53, ####[facility] WBC (Leukocytes) 15.2 10*3/uL High 4.0-10.6 [facility] Comment on above: Performed By: #### 1 53, ####[facility] ABS BASOPHILS 0.0 10*3/uL Normal 0.0-0.2 [facility] Comment on above: Performed By: #### 5 102 ####[facility] ABS IMM GRANS 0.1 10*3/uL Normal 0.0-0.2 [facility] Comment on above: Performed By: #### 5 102 ####[facility] Basophils Auto #/vol (Bld) 0.3 % Normal 0.0-1.0 [facility] Comment on above: Performed By: #### 5 102 ####[facility] Eosinophils 0.0 10*3/uL Normal 0.0-0.5 [facility] Comment on above: Performed By: #### 5 102 ####[facility] Eosinophils/100 leukocytes 0.2 % Normal 0.0-6.0 [facility] Comment on above: Performed By: #### 5 102 ####[facility] Erythrocyte distribution width Auto Ratio (RBC) 14.3 % Normal 11.5-15.0 [facility] Comment on above: Performed By: #### 5 0103 ####[facility] Erythrocytes (RBC) 3.50 10*6/uL Low 3.80-5.00 [facility] Comment on above: Performed By: #### 5 0103 ####[facility] Erythrocytes (RBC) 0 % Normal 0-0 [facility] Comment on above: Performed By: #### 5 0103 ####[facility] Hematocrit (HCT) 32.5 % Low 36.0-45.0 [facility] Comment on above: Performed By: #### 5 0103 ####[facility] Hemoglobin mass conc (Bld) 10.9 g/dL Low 12.0-15.0 [facility] Comment on above: Performed By: #### 5 0103 ####[facility] IMMATURE GRANS 0.4 % Normal 0.0-1.0 [facility] Comment on above: Performed By: #### 5 0103 ####[facility] Lymphocytes 2.3 10*3/uL Normal 1.2-4.0 [facility] Comment on above: Performed By: #### 5 0103 ####[facility] Lymphocytes/100 leukocytes 17.6 % Low 20.0-45.0 [facility] Comment on above: Performed By: #### 5 0103 ####[facility] MCH 31.1 pg Normal 27.0-33.0 [facility] Comment on above: Performed By: #### 5 0103 ####[facility] MCHC mass conc (RBC) 33.5 g/dL Normal 32.0-35.0 [facility] Comment on above: Performed By: #### 5 0103 ####[facility] MCV 92.9 fL Normal 82.0-98.0 [facility] Comment on above: Performed By: #### 5 102 ####[facility] Monocytes 0.8 10*3/uL Normal 0.1-1.0 [facility] Comment on above: Performed By: #### 5 102 ####[facility] MONOS 6.1 % Normal 5.0-12.0 [facility] Comment on above: Performed By: #### 5 102 ####[facility] Neutrophils 9.7 10*3/uL High 1.6-7.6 [facility] Comment on above: Performed By: #### 5 3 ####[facility] Neutrophils/100 leukocytes 75.4 % High 40.0-72.0 [facility] Comment on above: Performed By: #### 5 3 ####[facility] PLAT CNT 126 10*3/uL Low 150-400 [facility] Comment on above: Performed By: #### 5 102 ####[facility] WBC (Leukocytes) 12.9 10*3/uL High 4.0-10.6 [facility] Comment on above: Performed By: #### 5 0103 ####[facility] [facility] COMP METABOLIC PANELon 08-11 Alanine aminotransferase (ALT) 8 U/L Normal 7-52 [facility] Comment on above: Performed By: #### 0 0121, [id number] ####[facility] [facility].[address] Albumin 2.6 g/dL Low 3.5-5.7 [facility] Comment on above: Performed By: #### 0 0121, 41709 ####[facility] ALKALINE PHOSPH 34 IU/L Normal 34-104 [facility] Comment on above: Performed By: #### 0 0121, 47856 ####[place] [address] [facility].[address] Aspartate aminotransferase (AST) 11 U/L Low 13-39 [facility] Comment on above: Performed By: #### 0 0121, 60431 ####[facility] Bilirubin (total) 0.7 mg/dL Normal 0.3-1.0 [facility] Comment on above: Performed By: #### 0 0121, 71151 ####[facility] Calcium 7.4 mg/dL Low 8.6-10.3 [facility] Comment on above: Performed By: #### 0 0121, 75687 ####[facility] Chloride 112 mmol/L High 98-107 [facility] Comment on above: Performed By: #### 0 0121, 57884 ####[facility] CO2 22 mmol/L Normal 21-31 [facility] Comment on above: Performed By: #### 0 0121, 02699 ####[facility] [facility].[address] Creatinine 0.83 mg/dL Normal 0.60-1.20 [facility] Comment on above: Performed By: #### 0 0121, 04224 ####[facility] [facility].[address] eGFR (black) mL/min/{1.73_m2} Normal >60 [facility] Comment on above: Result Comment: Calc ulation may not be valid for patients over 70 years Performed By: #### 0 0121, 33518 ####[facility] [facility].[address] eGFR (non-black) mL/min/{1.73_m2} Normal >60 [facility] Comment on above: Result Comment: Calc ulation may not be valid for patients over 70 years Performed By: #### 0 0121, 36018 ####[facility] [facility].[address] Glucose mass conc 138 mg/dL High 70-100 [facility] Comment on above: Performed By: #### 0 0121, 02610 ####[facility] [place] [address], [facility] Potassium molar conc 4.0 mmol/L Normal 3.5-5.1 [facility] Comment on above: Performed By: #### 0 0121, 50182 ####[facility] [place] [address], [facility] Protein 4.1 g/dL Low 6.0-8.3 [facility] Comment on above: Performed By: #### 0 0121, 23140 ####[facility] [place] [address], [facility] Sodium 138 mmol/L Normal 136-145 [facility] Comment on above: Performed By: #### 0 0121, 24710 ####[facility] [place] [address], [facility] Urea nitrogen 16 mg/dL Normal 7-25 [facility] Comment on above: Performed By: #### 0 0121, 08212 ####[facility] [facility].[address] Consultationon 08-11-2017 Consultation MR#: [id number] Pt. Name: Judith Khan Date of Service: 08/10/2017 Room #: [id number] [id number] Birthdate: 1945 Referring Physician: CONSULTATIONREASON FOR CONSULTATION: Critical care management status post splenectomy,ventilatory management.HISTORY OF PRESENT ILLNESS: Ms. Judith Khan is a 72-year-old female witha history of hypertension, hyperlipidemia, diabetes, and COPD, whopresented as a transfer from [place], [place] with a traumatic brain injury.The patient reportedly fell, as reported by her [facility], [facility] on 07/22/2017, in her home. [...] days. She presented to the hospital in [place], [place], and aCT abdomen and pelvis was obtained that demonstrated a grade 5 spleniclaceration. The patient was initially hemodynamically stable per reportsfrom the outside facility, however she became markedly hypotensive,unresponsive to multiple fluid boluses, and was transferred [facility] as a level 1 trauma. [facility], she had received 3 L of crystalloid and 4 units of blood atthat time and only transiently responded to this fluid resuscitation. Shewas hypotensive in the [facility] and an emergent right femoral Cordis wasplaced [...] chronic obstructivepulmonary disease, not on home O2; aro-oiuhuaq-xsapjspwt diabetes mellitus,type 2; anxiety.PAST SURGICAL HISTORY: Hysterectomy, [...] outside facilityreviewed with attending surgeon in [facility] with evidence of rupturedspleen with blood products [...] past. GCS is 15reported in the [facility], currently GCS is 3T, intubated and sedated.She [...] the setting ofcritical care status.Endocrine: History of bkp-hfzikcr-uerjvfynl diabetes mellitus, type 2, onhome metformin. We [...] was placed in emergent setting [facility], this will be removed/replaced within 24 hours [...] Dict: 08/11/2017/04:38 A/Pippa Gutierrez Trans: 08/11/2017 02:22 [id number] Normal [facility] FRESH FROZEN PLASMA 2 UNITSo n 08-11-2017 PRODUCT CODE 1 E2701 Normal [facility] Comment on above: Order Comment: INR: 1.22 ,PTT: 27.2 at the time of order ;Indication: Activebleeding/invasive procedure with prolonged PT/PTT or INR > 1.6 Performed By: #### 1 0054, 20784 ####[facility] PRODUCT CODE 2 E2701 Normal [facility] Comment on above: Order Comment: INR: 1.22 ,PTT: 27.2 at the time of order ;Indication: Activebleeding/invasive procedure with prolonged PT/PTT or INR > 1.6 Performed By: #### 1 53, ####[facility] PRODUCT STATUS 1 PT Normal [facility] Comment on above: Order Comment: INR: 1.22 ,PTT: 27.2 at the time of order ;Indication: Activebleeding/invasive procedure with prolonged PT/PTT or INR > 1.6 Result Comment: Resu lt changed by IF on 08/11/2017 00:27. The previous value was XX.Result changed by IF on 08/12/2017 02:00. The previous value was IS. Performed By: #### 1 53, ####[facility] [facility].[address] PRODUCT STATUS 2 PT Normal [facility] Comment on above: Order Comment: INR: 1.22 ,PTT: 27.2 at the time of order ;Indication: Activebleeding/invasive procedure with prolonged PT/PTT or INR > 1.6 Result Comment: Resu lt changed by IF on 08/11/2017 03:17. The previous value was XM.Result changed by IF on 08/13/2017 02:00. The previous value was IS. Performed By: #### 1 53, ####[facility] [facility].[address] UNIT ABO 1 O Normal [facility] Comment on above: Order Comment: INR: 1.22 ,PTT: 27.2 at the time of order ;Indication: Activebleeding/invasive procedure with prolonged PT/PTT or INR > 1.6 Performed By: #### 1 53, ####[facility] UNIT ABO 2 O Normal [facility] Comment on above: Order Comment: INR: 1.22 ,PTT: 27.2 at the time of order ;Indication: Activebleeding/invasive procedure with prolonged PT/PTT or INR > 1.6 Performed By: #### 1 53, ####[facility] UNIT ID 1 [id number] Normal [facility] Comment on above: Order Comment: INR: 1.22 ,PTT: 27.2 at the time of order ;Indication: Activebleeding/invasive procedure with prolonged PT/PTT or INR > 1.6 Performed By: #### 1 53, ####[facility] UNIT ID 2 [id number] Normal [facility] Comment on above: Order Comment: INR: 1.22 ,PTT: 27.2 at the time of order ;Indication: Activebleeding/invasive procedure with prolonged PT/PTT or INR > 1.6 Performed By: #### 1 53, ####[facility] UNIT RH 1 Positive Normal [facility] Comment on above: Order Comment: INR: 1.22 ,PTT: 27.2 at the time of order ;Indication: Activebleeding/invasive procedure with prolonged PT/PTT or INR > 1.6 Performed By: #### 1 53, ####[facility] UNIT RH 2 Negative Normal [facility] Comment on above: Order Comment: INR: 1.22 ,PTT: 27.2 at the time of order ;Indication: Activebleeding/invasive procedure with prolonged PT/PTT or INR > 1.6 Performed By: #### 1 53, ####[facility] HEMATOCRITon 08-11-2017 Hematocrit (HCT) 37.7 % Normal 36.0-45.0 [facility] Comment on above: Order Comment: No: D o not add to previous draw Performed By: #### 1 53, ####[facility] Hematocrit (HCT) 34.8 % Low 36.0-45.0 [facility] Comment on above: Order Comment: No: D o not add to previous draw Performed By: #### 1 53, ####[facility] HEMOGLOBINon 08-11-2017 Hemoglobin mass conc (Bld) 12.7 g/dL Normal 12.0-15.0 [facility] Comment on above: Order Comment: No: D o not add to previous drawLAB DRAW NOW - PER CECY MCELROY Performed By: #### 1 53, ####[facility] Hemoglobin mass conc (Bld) 11.8 g/dL Low 12.0-15.0 [facility] Comment on above: Order Comment: No: D o not add to previous draw Performed By: #### 1 53, ####[facility] History and Physicalon 08-11 History and Physical MR#: [id number] Pt. Name: Judith Khan Admitted: 08/11/2017 Date of : 1945 Attending Physician: Alexander Olson M.D. Room #: SIC [id number] Discharge Date: HISTORY AND PHYSICALCHIEF COMPLAINT: Trauma [...] any other blood products. [facility] [...] they were fluctuating while in the Trauma [place],stabilized with fluid.GENERAL: Alert and oriented, no acute [...] personal documentation from me. Date Dict: 08/11/2017/12:27 Susan/SUKHJINDER Delgadoate Trans: 08/11/2017 08:41 A/LaurelN_JN:[id number] Normal [facility] LACTATE BLOODon 08-11-2017 Lactate 1.1 mmol/L Normal .5-2.2 [facility] Comment on above: Order Comment: No: D o not add to previous draw Performed By: #### 1 53, ####[facility] [place] [address], [facility] Lactate 1.3 mmol/L Normal .5-2.2 [facility] Comment on above: Performed By: #### 1 53, ####[facility] [place] [address], [facility] LIPASE BLOODon 08-11-2017 Lipase 13 Units/L Normal 11-82 [facility] Comment on above: Performed By: #### 0 0121, 33282 ####[facility] [place] [address], [facility] LIVER BATTERYon 08-11-2017 Alanine aminotransferase (ALT) 18 U/L Normal 7-52 [facility] Comment on above: Order Comment: No: D o not add to previous draw Performed By: #### 1 53, ####[facility] [place] [address], [facility] Albumin 2.8 g/dL Low 3.5-5.7 [facility] Comment on above: Order Comment: No: D o not add to previous draw Performed By: #### 1 53, ####[facility] [place] [address], [facility] ALKALINE PHOSPH 36 IU/L Normal 34-104 [facility] Comment on above: Order Comment: No: D o not add to previous draw Performed By: #### 1 53, ####[facility] [place] [address], [facility] Aspartate aminotransferase (AST) 30 U/L Normal 13-39 [facility] Comment on above: Order Comment: No: D o not add to previous draw Performed By: #### 1 53, ####[facility] [place] [address], [place] Bilirubin (direct) 0.2 mg/dL Normal 0.0-0.2 [facility] Comment on above: Order Comment: No: D o not add to previous draw Performed By: #### 1 53, ####[facility] [place] [address], [place] Bilirubin (total) 0.9 mg/dL Normal 0.3-1.0 [facility] Comment on above: Order Comment: No: D o not add to previous draw Performed By: #### 1 53, ####[facility] [place] [address], [place] Protein 4.0 g/dL Low 6.0-8.3 [facility] Comment on above: Order Comment: No: D o not add to previous draw Performed By: #### 1 53, ####[facility] [place] [address], [facility] MAGNESIUM BLOODon 08-11-2017 Magnesium 1.4 mg/dL Low 1.9-2.7 [facility] Comment on above: Order Comment: No: D o not add to previous draw Performed By: #### 1 53, ####[facility] [facility] Operative Reporton 8 Operative Report MR#: [id number] [facility] Pt. Name: Judith Khan Room #: SIC [id number] Discharge Date: Birthdate: 1945 OPERATIVE REPORTDATE OF SURGERY: 08/11/2017SURGEON: Alexander Olson M.D.ASSISTANTS: Aldo Villasenor M.D. PhD; ALEXANDER GutierrezREOPERATIVE DIAGNOSES: Traumatic splenic rupture.POSTOPERATIVE DIAGNOSIS: Traumatic splenic rupture.PROCEDURE: Splenectomy for trauma.INDICATION: This is a 72-year-old white female, [facility] [...] 08/11/2017/06:29 A/Aldo Villasenor, MDDate Trans: 08/11/2017 03:54 P/mmoDN_[id number]:[id number] Normal [facility] PHOSPHORUS BLOODon 8 Phosphate 3.1 mg/dL Normal 2.5-5.0 [facility] Comment on above: Order Comment: No: D o not add to previous draw Performed By: #### 1 53, ####[facility] PLATELET APHERESIS 1 UNITon 08-11-2017 PRODUCT CODE 1 E7006 Normal [facility] Comment on above: Order Comment: Plt c ount at the time of order: 126 ;Indication: Platelet-inhibitingdrug therapy with invasive procedure/bleeding Performed By: #### 1 53, ####[facility] PRODUCT STATUS 1 PT Normal [facility] Comment on above: Order Comment: Plt c ount at the time of order: 126 ;Indication: Platelet-inhibitingdrug therapy with invasive procedure/bleeding Result Comment: Resu lt changed by IF on 08/11/2017 00:20. The previous value was XM.Result changed by IF on 08/12/2017 02:00. The previous value was IS. Performed By: #### 1 53, ####[facility] [facility].[address] UNIT ABO 1 O Normal [facility] Comment on above: Order Comment: Plt c ount at the time of order: 126 ;Indication: Platelet-inhibitingdrug therapy with invasive procedure/bleeding Performed By: #### 1 53, ####[facility] [place] [address].[address] UNIT ID 1 [id number] Normal [facility] Comment on above: Order Comment: Plt c ount at the time of order: 126 ;Indication: Platelet-inhibitingdrug therapy with invasive procedure/bleeding Performed By: #### 1 53, ####[address] UNIT RH 1 Positive Normal [facility] Comment on above: Order Comment: Plt c ount at the time of order: 126 ;Indication: Platelet-inhibitingdrug therapy with invasive procedure/bleeding Performed By: #### 1 53, ####[address] POC GLUCOSE LABon 08-11-2017 Glucose mass conc 100 mg/dL Normal 70-100 [facility] Comment on above: Performed By: #### 1 53, ####[id number] [place] [address] PORTABLE ABDOMENon 8 PORTABLE ABDOMEN [facility] Pnpwwxyll[address] [place] [id number] Patient Name: JUDITH KHAN : 1945Sex: FAge: Race: WhiteMRN: [id number]. Location: EMERPatient Status: IVisit #: [id number] Date: 08/11/2017 12:35:00 AMCompleted Date: 08/11/2017 01:07 AMRequesting Provider: ALEXANDER OLSON Attending Provider: ALEXANDER OLSON Report Copy To: Signs & Symptoms: Intra-op portable abdomenHistory: R/O foreign bodyComments: R/O foreign bodyExam: PORTABLE ABDOMENAccession #: [id number] POR TABLE ABDOMEN 08/11/2017 1:07 AM EST [...] findings. Electronically signed by:Kristian Nascimento. Transcribed by: [email or web address], User Resident: NICOLETTE TOTHANElectronically Signed by: KRISTIAN NASCIMENTO @ 08/11/2017 12:16 PMI personally read this/these film(s) with this resident Normal [facility] Comment on above: Order Comment: R/O f taniaign body PORTABLE CHEST 1 VIEWon PORTABLE CHEST 1 VIEW [facility] [address]otjjnb[address] [place] [address] Patient Name: JUDITH KHAN : 1945Sex: FAge: Race: WhiteMRN: [id number]. Location: [id number] Status: IVisit #: [id number] Date: 08/11/2017 1:45:00 AMCompleted Date: 08/11/2017 02:13 AMRequesting Provider: CARMENZA WINTER Attending Provider: ALEXANDER OLSON Report Copy To: Signs & Symptoms: Post OPHistory: Patient history not availableComments: Check E.T. Position, also to chest OGT placementExam: PORTABLE CHEST 1 VIEWAccession #: [id number] POR TABLE CHEST 1 VIEW 08/11/2017 2:13 [...] findings. Electronically signed by:Kristian Nascimento. Transcribed by: [email or web address], User Resident: NICOLETTE TOTHANElectronically Signed by: KRISTIAN NASCIMENTO @ 08/11/2017 12:17 PMI personally read this/these film(s) with this resident Normal [facility] Comment on above: Order Comment: Check E.T. Position, also to chest OGT placement PROTHROMBIN TIMEon 8 INR Coag RelTime (PPP) 1.44 {INR} High 0.91-1.16 [facility] Comment on above: Order Comment: No: [...] OF ACTION, CLINICALEFFECTIVENESS, AND OPTIMAL THERAPEUTIC RANGE. [id number];108:231S-246S. Performed By: #### 1 53, ####[facility] Prothrombin time (PT) Coag time (PPP) 17.7 s High 12.3-14.8 [facility] Comment on above: Order Comment: No: D o not add to previous draw Result Comment: ALL RESULTS MUST BE INTERPRETED WITH RESPECT TO BLOOD DRAWING ARTIFACTOR DILUTION ERROR OF ANTICOAGULANT AT THE TIME OF SAMPLING. Performed By: #### 1 53, ####[facility] [facility] INR Coag RelTime (PPP) 1.22 {INR} High 0.91-1.16 [facility] Comment on above: Result Comment: ACCC P RECOMMENDED INR FOR WARFARIN THERAPY CONDITION INRPROPHYLAXIS OF VENOUS THROMBOSIS 2-3(HIGH-RISK SURGERY)TREATMENT OF VENOUS THROMBOSIS 2-3TREATMENT OF PULMONARY EMBOLISM 2-3PREVENTION OF SYSTEMIC EMBOLISM: 2-3 ACUTE MYOCARDIAL INFARCTION TISSUE HEART VALVES VALVULAR HEART DISEASE ATRIAL FIBRILLATION RECURRENT SYSTEMIC EMBOLISMMECHANICAL HEART VALVE 2.5-3.5 FROM: ORAL ANTICOAGULANTS. MECHANISM OF ACTION, CLINICALEFFECTIVENESS, AND OPTIMAL THERAPEUTIC RANGE. [id number];108:231S-246S. Performed By: #### 5 6101, [id number] ####[facility] [place] [address], [facility] Prothrombin time (PT) Coag time (PPP) 15.5 s High 12.3-14.8 [facility] Comment on above: Result Comment: ALL RESULTS MUST BE INTERPRETED WITH RESPECT TO BLOOD DRAWING ARTIFACTOR DILUTION ERROR OF ANTICOAGULANT AT THE TIME OF SAMPLING. Performed By: #### 5 6101, [id number] ####[facility] [place] [address], [facility] RBC'S 4 UNITSon 08-11-2017 CROSSMATCH INTERP 1 COMP Normal [facility] Comment on above: Performed By: #### 8 6004 ####[facility] [place] [address], [facility] CROSSMATCH INTERP 2 COMP Normal [facility] Comment on above: Performed By: #### 8 6004 ####[facility] [place] [address], [facility] CROSSMATCH INTERP 3 COMP Normal [facility] Comment on above: Performed By: #### 8 6004 ####[facility] [place] [address], [facility] CROSSMATCH INTERP 4 COMP Normal [facility] Comment on above: Performed By: #### 8 6004 ####[facility] [place] [address], [facility] PRODUCT CODE 1 E0686 Normal [facility] Comment on above: Performed By: #### 8 6004 ####[facility] [place] [address], [facility] PRODUCT CODE 2 E0336 Normal [facility] Comment on above: Performed By: #### 8 6004 ####[facility] [place] [address], [place] PRODUCT CODE 3 E0336 Normal [facility] Comment on above: Performed By: #### 8 6004 ####[facility] [place] [address], [facility] PRODUCT CODE 4 E0336 Normal [facility] Comment on above: Performed By: #### 8 6004 ####[facility] [place] [address], [facility] PRODUCT STATUS 1 RE Normal [facility] Comment on above: Result Comment: Resu lt changed by IF on 08/11/2017 00:26. The previous value was XM.Result changed by IF on 08/11/2017 01:42. The previous value was IS.Result changed by IF on 08/14/2017 07:03. The previous value was XM. Performed By: #### 8 6004 ####[facility] [place] [address], [facility] PRODUCT STATUS 2 PT Normal [facility] Comment on above: Result Comment: Resu lt changed by IF on 08/11/2017 00:26. The previous value was XM.Result changed by IF on 08/12/2017 02:00. The previous value was IS. Performed By: #### 8 6004 ####[facility] [place] [address], [place] PRODUCT STATUS 3 RE Normal [facility] Comment on above: Result Comment: Resu lt changed by IF on 08/12/2017 15:16. The previous value was XX. Performed By: #### 8 6004 ####[facility] [place] [address], [facility] PRODUCT STATUS 4 RE Normal [facility] Comment on above: Result Comment: Resu lt changed by IF on 08/11/2017 00:26. The previous value was XM.Result changed by IF on 08/11/2017 01:42. The previous value was IS.Result changed by IF on 08/14/2017 07:03. The previous value was XM. Performed By: #### 8 6004 ####[facility] [place] [address], [place] UNIT ABO 1 O Normal [facility] Comment on above: Performed By: #### 8 6004 ####[facility] UNIT ABO 2 O Normal [facility] Comment on above: Performed By: #### 8 6004 ####[facility] [facility].[address] UNIT ABO 3 O Normal [facility] Comment on above: Performed By: #### 8 6004 ####[facility] UNIT ABO 4 O Normal [facility] Comment on above: Performed By: #### 8 6004 ####[facility] [facility].[address] UNIT ID 1 [id number] Normal [facility] Comment on above: Performed By: #### 8 6004 ####[facility] [facility].[address] UNIT ID 2 [id number] Normal [facility] Comment on above: Performed By: #### 8 6004 ####[facility] [facility].[address] UNIT ID 3 [id number] Normal [facility] Comment on above: Performed By: #### 8 6004 ####[facility] [facility].[address] UNIT ID 4 [id number] Normal [facility] Comment on above: Performed By: #### 8 6004 ####[facility] [place] [address], [facility] UNIT RH 1 Negative Normal [facility] Comment on above: Performed By: #### 8 6004 ####[facility] [place] [address], [facility] UNIT RH 2 Negative Normal [facility] Comment on above: Performed By: #### 8 6004 ####[facility] [place] [address], [place] UNIT RH 3 Negative Normal [facility] Comment on above: Performed By: #### 8 6004 ####[facility] [place] [address], [place] UNIT RH 4 Negative Normal [facility] Comment on above: Performed By: #### 8 6004 ####[facility] [place] [address], [place] SERUM TESTon 08-11 TEST Negative Normal [facility] Comment on above: Performed By: #### 4 6473 ####[facility] [place] [address], [place] TYPE AND CROSSMATCHon 2017 ABO INTERPRETATION O Normal [facility] Comment on above: Performed By: #### 6 2594 ####[facility] [place] [address], [place] ANTIBODY SCREEN Negative Normal [facility] Comment on above: Performed By: #### 6 2594 ####[facility] [place] [address], [place] RH INTERPRETATION Negative Normal [facility] Comment on above: Performed By: #### 6 2594 ####[facility] [place] [address], [place] Vital Signs Date Time Vital Sign Value Performing Clinician Facility 02-22-2024 14:35-0400 SaO2% (BldA) [Mass fraction] 95 % Mariola Montes PA-C Work Phone: [facility] 02-22-2024 14:33-0400 Diastolic blood pressure 73 mm[Hg] Mariola Montes PA-C Work Phone: [facility] 02-22-2024 14:33-0400 Heart rate 92 /min Mariola Simon PA-C Work Phone: [facility] 02-22-2024 14:33-0400 Systolic blood pressure 133 mm[Hg] Mariola Simon PA-C Work Phone: [facility] 01-14-2024 13:40-0400 Body height 167.6 cm Mariola Simon PA-C Work Phone: [facility] 01-14-2024 13:40-0400 Body mass index (BMI) [Ratio] 19.21 kg/m2 Mariola Simon PA-C Work Phone: [facility] 01-14-2024 13:40-0400 Body weight 53.98 kg Mariola Simon PA-C Work Phone: [facility] 01-14-2024 13:40-0400 Diastolic blood pressure 63 mm[Hg] Mariola Simon PA-C Work Phone: [facility] 01-14-2024 13:40-0400 Heart rate 92 /min Mariola Simon PA-C Work Phone: [facility] 01-14-2024 13:40-0400 SaO2% (BldA) [Mass fraction] 92 % Mariola Simon PA-C Work Phone: [facility] 01-14-2024 13:40-0400 Systolic blood pressure 144 mm[Hg] Mariola Simon PA-C Work Phone: [facility] 10-07-2023 09:46-0400 Diastolic blood pressure 70 mm[Hg] Mri (I-Stat/1.5t/3t) Work Phone: [facility] 10-07-2023 09:46-0400 Heart rate 103 /min Mri (I-Stat/1.5t/3t) Work Phone: [facility] 10-07-2023 09:46-0400 Respiratory rate 16 /min Mri (I-Stat/1.5t/3t) Work Phone: [facility] 10-07-2023 09:46-0400 SaO2% (BldA) [Mass fraction] 93 % Mri (I-Stat/1.5t/3t) Work Phone: [facility] Comment on above: RA 10-07-2023 09:46-0400 Systolic blood pressure 144 mm[Hg] Mri (I-Stat/1.5t/3t) Work Phone: [facility] 09-13-2023 09:23-0400 Body height 167.6 cm David Valente MD Work Phone: [facility] 09-13-2023 09:23-0400 Body weight 55.79 kg David Valente MD Work Phone: [facility] 09-13-2023 09:23-0400 Diastolic blood pressure 71 mm[Hg] David Valente MD Work Phone: [facility] 09-13-2023 09:23-0400 Heart rate 85 /min David Valente MD Work Phone: [facility] 09-13-2023 09:23-0400 SaO2% (BldA) [Mass fraction] 95 % David Valente MD Work Phone: [facility] 09-13-2023 09:23-0400 Systolic blood pressure 132 mm[Hg] David Valente MD Work Phone: [facility] 07-16-2023 15:42-0500 Heart rate 117 /min Dem[facility]co [facility] 07-16-2023 15:42-0500 Respiratory rate 19 /min Demarco [facility] 07-16-2023 15:42-0500 SaO2% (BldA) [Mass fraction] 94 % Demarco [facility] 07-16-2023 15:00-0500 Diastolic blood pressure 99 mm[Hg] Demarco [facility] 07-16-2023 15:00-0500 Mean blood pressure 121 mm[Hg] [facility] 07-16-2023 15:00-0500 Respiratory rate 33 /min [facility] 07-16-2023 15:00-0500 Systolic blood pressure 166 mm[Hg] [facility] 07-16-2023 14:30-0500 Diastolic blood pressure 77 mm[Hg] [facility] 07-16-2023 14:30-0500 Heart rate 103 /min [facility] 07-16-2023 14:30-0500 Mean blood pressure 100 mm[Hg] [facility] 07-16-2023 14:30-0500 Respiratory rate 14 /min [facility] 07-16-2023 14:30-0500 SaO2% (BldA) [Mass fraction] 93 % [facility] 07-16-2023 14:30-0500 Systolic blood pressure 147 mm[Hg] [facility] 07-16-2023 13:30-0500 Body temperature 97.88 [degF] [facility] 07-16-2023 13:30-0500 Diastolic blood pressure 84 mm[Hg] [facility] 07-16-2023 13:30-0500 Mean blood pressure 105 mm[Hg] [facility] 07-16-2023 13:30-0500 Systolic blood pressure 146 mm[Hg] [facility] 07-16-2023 11:37-0500 Body temperature 97.16 [degF] [facility] 07-16-2023 11:37-0500 Heart rate 119 /min Dem[facility]co [facility] 07-16-2023 11:37-0500 Respiratory rate 18 /min Demarco [facility] 06-23-2023 14:00-0500 Hourly Rounding [facility] 06-23-2023 14:00-0500 Promise to Return [facility] 06-23-2023 13:00-0500 Hourly Rounding [facility] 06-23-2023 13:00-0500 Promise to Return [facility] 06-23-2023 12:00-0500 Hourly Rounding [facility] 06-23-2023 12:00-0500 Promise to Return [facility] 06-23-2023 11:22-0500 Heart rate 107 /min [facility] 06-23-2023 11:22-0500 SaO2% (BldA) [Mass fraction] 94 % [facility] 06-23-2023 11:21-0500 Diastolic blood pressure 82 mm[Hg] [facility] 06-23-2023 11:21-0500 Mean blood pressure 108 mm[Hg] [facility] 06-23-2023 11:21-0500 Systolic blood pressure 162 mm[Hg] [facility] 06-23-2023 11:20-0500 Body temperature 97.7 [degF] [facility] 06-23-2023 08:20-0500 SaO2% (BldA) [Mass fraction] 98 % [facility] 06-23-2023 07:19-0500 Heart rate 84 /min [facility] 06-23-2023 07:19-0500 SaO2% (BldA) [Mass fraction] 100 % [facility] 06-23-2023 07:18-0500 Body temperature 97.52 [degF] [facility] 06-23-2023 07:18-0500 Diastolic blood pressure 81 mm[Hg] [facility] 06-23-2023 07:18-0500 Mean blood pressure 99 mm[Hg] [facility] 06-23-2023 07:18-0500 Systolic blood pressure 137 mm[Hg] [facility] 06-23-2023 06:17-0500 Blood Pressure Location [facility] 06-23-2023 06:17-0500 Body temperature 97.52 [degF] [facility] 06-23-2023 06:17-0500 Diastolic blood pressure 74 mm[Hg] [facility] 06-23-2023 06:17-0500 Heart rate 99 /min [facility] 06-23-2023 06:17-0500 Respiratory rate 17 /min [facility] 06-23-2023 06:17-0500 Systolic blood pressure 159 mm[Hg] [facility] 06-23-2023 05:01-0500 Heart rate 102 /min [facility] 06-23-2023 05:01-0500 Mean blood pressure 98 mm[Hg] [facility] 06-23-2023 05:01-0500 Respiratory rate 19 /min [facility] 06-23-2023 04:30-0500 Mean blood pressure 95 mm[Hg] [facility] 06-23-2023 04:30-0500 Respiratory rate 16 /min [facility] 06-23-2023 03:00-0500 Mean blood pressure 121 mm[Hg] Melaterrie Espinal [facility] 06-23-2023 03:00-0500 Respiratory rate 20 /min [facility] 06-23-2023 02:43-0500 Respiratory rate 18 /min [facility] 06-23-2023 02:30-0500 Respiratory rate 18 /min [facility] 06-23-2023 01:40-0500 gluc 96 mg/dL [facility] 06-23-2023 01:40-0500 gluc [facility] 06-23-2023 01:38-0500 gluc 96 mg/dL [facility] 06-23-2023 01:38-0500 gluc [facility] 06-23-2023 01:37-0500 Heart rate 117 /min [facility] 05-15-2023 13:50-0500 Body height 167.64 cm MD Kavon Sams Work Phone: [facility] 05-15-2023 13:50-0500 Body weight 57.15 kg MD Kavon Sams Work Phone: [facility] Encounters Encounter Date Encounter Type Care Provider Facility Start: 02-23-2024 End: 02-25-2024 Refill Mariola Montes PA-C Work Phone: [facility] Comment on above: Refill Request Start: 02-22-2024 End: 02-22-2024 Office outpatient visit 40 minutes Mariola Montes PA-C Work Phone: [facility] Comment on above: Parkinson's disease with dyskinesia and fluctuating manifestations (HCC) (Primary Dx) Start: 02-22-2024 End: 02-22-2024 ambulatory MARIOLA MONTES Facility:[facility] Start: 01-14-2024 End: 01-14-2024 ambulatory [facility] Facility:[facility] Start: 01-14-2024 End: 01-14-2024 Office outpatient visit 40 minutes Mariola Montes PA-C Work Phone: [facility] Comment on above: Parkinson's disease with dyskinesia and fluctuating manifestations (HCC) (Primary Dx) Start: 12-20-2023 End: 12-20-2023 ambulatory STEPHENIE PRECIADO [facility] Start: 11-27-2023 End: 11-27-2023 ambulatory VERENA SHEEHAN [facility] Start: 11-19-2023 End: 11-19-2023 ambulatory Rafa Abebe MD Facility:[facility] Start: 11-08-2023 Telephone encounter David Valente MD Work Phone: [facility] Comment on above: Medication Update/Am antadine Start: 10-29-2023 End: 10-29-2023 ambulatory GIOVANNI GILL Not Available Start: 10-22-2023 End: 10-22-2023 ambulatory Rafa Abebe MD Facility:[facility] Start: 10-17-2023 Refill Neelima Roxana SegundoHAND RIGGER Work Phone: [facility] Comment on above: Med Change Request Start: 10-17-2023 Telephone encounter David Valente MD Work Phone: [facility] Comment on above: Results (MRI) Start: 10-15-2023 End: 10-15-2023 ambulatory Neelima Ortega APRN.HAND RIGGER Work Phone: Neurology Comment on above: Parkinson's disease with dyskinesia and fluctuating manifestations (HCC) (Primary Dx) Start: 10-15-2023 End: 10-15-2023 Telemedicine consultation with patient Neelima Roxana KRUEGERHAND RIGGER Work Phone: Neurology Start: 10-09-2023 Telephone encounter David Valente MD Work Phone: [facility] Start: 10-07-2023 End: 10-07-2023 ambulatory DAVID VALENTE Facility:[facility] Start: 10-07-2023 End: 10-07-2023 [facility] Facility:[facility] Start: 10-07-2023 End: 10-07-2023 Subsequent hospital visit by physician Mri 4 Radio Main Q (I-Stat/1.5t/3t) Work Phone: MRI Q Comment on above: Spinal stenosis of c ervical region [M48.02] Abnormal posture [R2 9.3] 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 [M48.062] Start: 09-26-2023 End: 09-26-2023 ambulatory [facility] Start: 09-18-2023 [facility] Start: 09-17-2023 End: 09-18-2023 Evaluation and management of inpatient [facility] Start: 09-13-2023 End: 09-13-2023 [facility] Facility:[facility] Start: 09-13-2023 End: 09-13-2023 [facility] Facility:[facility] Start: 09-13-2023 End: 09-13-2023 Patient encounter procedure David Valente MD Work Phone: [facility] Comment on above: Hyperreflexia (Prima ry Dx); Spinal stenosis of cervical region; Abnormal posture; Spinal stenosis of lumbar region with neurogenic claudication; Neuropathy; Hypertension, unspecified type; Degenerative myopia with other maculopathy, bilateral eye; Parkinson's disease, unspecified whether dyskinesia present, unspecified whether manifestations fluctuate (HCC); Memory changes Start: 09-03-2023 End: 09-03-2023 ambulatory Rafa Abebe MD [facility] Start: 08-22-2023 End: 08-22-2023 ambulatory [facility] Start: 08-20-2023 End: 08-20-2023 ambulatory Rafa Abebe MD [facility] Start: 08-14-2023 End: 08-14-2023 ambulatory Giovanni Gill Facility:[facility] Start: 08-13-2023 End: 08-13-2023 ambulatory [facility] Start: 08-13-2023 End: 08-13-2023 ambulatory [facility] Start: 08-07-2023 End: 08-07-2023 ambulatory [facility] Start: 07-30-2023 End: 07-30-2023 ambulatory Rafa Abebe MD Facility: [facility] Start: 07-16-2023 End: 07-16-2023 Emergency department patient visit Demarco Beaver Facility:[facility] Start: 07-16-2023 End: 07-16-2023 Emergency department patient visit Demarco Beaver [facility] Start: 07-06-2023 End: 07-06-2023 ambulatory [facility] Start: 06-23-2023 End: 06-23-2023 ambulatory Mela Espinal Facility:[facility] Start: 06-23-2023 End: 06-23-2023 Observation Mela Espinal [facility] Start: 05-15-2023 End: 05-15-2023 ambulatory Giovanni Gill Facility:[facility] Start: 05-15-2023 End: 05-15-2023 ambulatory MD Kavon Sams Work Phone: [facility] Work Phone: Start: 05-15-2023 End: 05-15-2023 Patient encounter procedure MD Kavon Sams Work Phone: [facility] Work Phone: Start: 01-12-2023 End: 01-12-2023 ambulatory [facility] Start: 10-09-2022 End: 10-10-[address] KAVON SAMS . Facility: Start: 05-24-2022 End: 05-25-[address] KAVON SAMS . Facility: Start: 05-08-2022 End: 05-10-2022 Evaluation and management of inpatient DR KAVON ASMS . Facility: Start: 03-29-2022 End: 03-29-[address] MISAEL PEDRAZA . Facility: Start: 12-27-2021 End: 12-28-[address] KAVON SAMS . Facility: Start: 08-13-2017 End: 08-14-2017 Ambulatory DEFAULT PHYSICIAN Facility:[facility] Start: 08-11-2017 End: 08-15-2017 Evaluation and management of inpatient REFERRED SELF Facility:[facility] Start: 07-02-2013 EKG myocardial ischemia David Valente MD Work Phone: [facility] Work Phone: Procedures Date Procedure Procedure Detail Performing Clinician Start: 10-07-2023 Mri spinal canal cer vical w/o contrast matrl David Valente MD Work Phone: Start: 05-15-2023 MRI of head MD Kavon Sams Work Phone: Start: 03-04-2020 Removal of stent Magda Espinal Start: 08-14-2017 INTRODUCTION OF SERUM/TOX/VACCINE INTO MUSCLE, PERC APPROACH SUPA Irving HEIDT Start: 08-11-2017 MEASURE OF ARTERIAL SATURATION, PERIPHERAL, PERC APPROACH SUPA Irving HEIDT Start: 08-11-2017 RESECTION OF SPLEEN, OPEN APPROACH ATHANASIOS BRAMOS Start: 08-11-2017 TRANSFUSE NONAUT FRO KRYSTYNA PLASMA IN PERIPH VEIN, [facility] SUPA Irving HEIDT Start: 08-11-2017 TRANSFUSE NONAUT HARRY TELETS IN PERIPH VEIN, [facility] SUPA Irving HEIDT Start: 08-11-2017 TRANSFUSE NONAUT RED BLOOD CELLS IN PERIPH VEIN, [facility] SUPA Irving HEIDT Appendectomy Mela Espinal Cataract (morphologi c abnormality) Mela Espinal Hysterectomy Mela Espinal Splenectomy eMla Espinal Plan of Treatment Date Care Activity Detail Author Start: 09-17-2026 Diabetes Screening Diabetes Screenin [facility] Start: 09-12-2026 Diabetes Screening Diabetes Screenin [facility] Start: 02-22-2024 End: 02-22-2024 Patient encounter procedure 02/22/2024 3:00 PM EDT Office Visit [facility] [address] [place] [address] Mariola Montes PA-C [address] [place] [address] [facility] Start: 02-10-2024 Covid-19 Vaccine () Covid-19 Vaccine () [facility] Start: 02-10-2024 Influenza vaccination [facility] Start: 01-14-2024 End: 01-14-2024 Patient encounter procedure 01/14/2024 2:00 PM EDT Office Visit [facility] [address] [place] [address] Mariola Montes PA-C [address] [place], [place] [id number] 3 mo f/u [facility] Comment on above: 3 mo f/u Start: 10-15-2023 End: 10-15-2023 Follow-up encounter 10/15/2023 10:30 AM EDT [facility] [address] [place] [address] Neelima rOtega APRN.HAND RIGGER [address] [place], [place] [id number] Follow up Neurology Comment on above: Follow up Start: 09-13-2023 End: 12-13-2023 SUJEY BY IFA WITH REFLEX [facility] Work Phone: Comment on above: Expected: 09/13/2023 , Expires: 12/13/2023 Start: 09-13-2023 End: 12-13-2023 Methylmalonate [Moles/volume] in Serum or Plasma [facility] Work Phone: Comment on above: Expected: 09/13/2023 , Expires: 12/13/2023 Start: 09-13-2023 End: 12-13-2023 PROTEIN ELECT RND UR W/INTERP [facility] Work Phone: Comment on above: Expected: 09/13/2023 , Expires: 12/13/2023 Start: 09-13-2023 End: 12-13-2023 PROTEIN ELECTROPHORESIS SERUM W/INTERP [facility] Work Phone: Comment on above: Expected: 09/13/2023 , Expires: 12/13/2023 Start: 06-11-2023 Advance Directive Discussion Advance Directive Discussion [facility] Start: 02-09-2023 Covid-19 Vaccine () Covid-19 Vaccine () [facility] Start: 10-28-2020 Pneumococcal Vaccine : 65+ (2 of 2 - PCV) Pneumococcal Vaccine: 65+ (2 of 2 - PCV) [facility] Start: 2011 Screening for osteoporosis Bone Density Screening [facility] Start: 2006 RSV Vaccine (1 - 1-d ose 60+ series) RSV Vaccine (1 - 1-dose 60+ series) [facility] Start: 02-09-1996 Shingrix Vaccine (1 of 2) Avelar grix Vaccine (1 of 2) [facility] Start: 1965 Urine microalbumin profile DTaP,Tdap,Td Vaccine (1 - Tdap) [facility] Start: 02-09-1964 Annual PCP Team Doubler Operator mary alice Disease Visit Annual PCP Team Chronic Disease Visit [facility] Start: 02-09-1964 Anxiety Screening Anxiety Screening [facility] Start: 02-09-1964 BP Controlled (<130/80) BP Con trolled (<130/80) [facility] Start: 02-09-1964 Depression Screening Depression Scre ening [facility] Start: 02-09-1964 Hepatitis C screening Hepatitis C Buzz guzman [facility] End: 10-12-2024 MR Cervical spine WO contrast MRI CERVICAL SPINE WO IVCON Radiology Routine Spinal stenosis of cervical region 1 Occurrences starting 09/13/2023 until 10/12/2024 [facility] Work Phone: Comment on above: 1 Occurrences starti ng 09/13/2023 until 10/12/2024 End: 10-12-2024 MR Lumbar spine WO contrast MRI LUMBAR SPINE WO IVCON Radiology Routine Spinal stenosis of lumbar region with neurogenic claudication 1 Occurrences starting 09/13/2023 until 10/12/2024 [facility] Work Phone: Comment on above: 1 Occurrences starti ng 09/13/2023 until 10/12/2024 End: 10-12-2024 MR Thoracic spine WO contrast MRI THORACIC SPINE WO IVCON Radiology Routine Abnormal posture 1 Occurrences starting 09/13/2023 until 10/12/2024 [facility] Work Phone: Comment on above: 1 Occurrences starti ng 09/13/2023 until 10/12/2024 [facility] c Immunizations Immunization Date Immunization Notes Care Provider Fa [facility] 03-14-2021 influenza virus vacc ine, unspecified formulation David Valente MD Work Phone: [facility] Payers Date Payer Category Payer Medicare [id number] 2023 Unknown 2023 Self-pay [id number] 2011 Medicare [id number] 1959 Medicare [id number] 1959 Unknown [id number] 1946 Unknown [id number] 2.16.84 [id number] 1946 Unknown [id number] 2.16.84 [id number] 1946 Unknown [id number] 2.16.84 0.1.528044.3.579.2.593 1946 Unknown [id number] 2.16.84 0.1.706707.3.579.2.593 1946 Unknown [id number] 2.16.84 0.1.297947.3.579.2.593 1946 Unknown [id number] 2.16.8 40.1.496464.3.579.2.727 1946 Unknown [id number] 2.16.8 40.1.627958.3.579.2.727 1946 Unknown [id number] 2.16.84 0.1.445145.3.579.2.1259 1946 Unknown [id number] 2.16. 840.1.925051.3.579.2.196 1946 Unknown [id number] 2.16. 840.1.123090.3.579.2.196 1946 Unknown [id number] 2.16. 840.1.683704.3.579.2.196 1946 Unknown [id number] 2.16. 840.1.824936.3.579.2.196 1946 Unknown [id number] 2.16. [id number] Medicare [id number] Unknown [id number] 2.16.8 40.1.092670.3.579.2.531 Unknown [id number] 2.16.8 [id number] Social History Date Type Detail [facility] Work Phone: Start: 1945 Sex Assigned At Female [facility] Start: 03-04-2020 End: 02-22-2024 Tobacco smoking status Ex-smoker (finding) [facility] Start: 09-06-2023 End: 09-13-2023 Sex Assigned At Female [facility] Start: 07-02-1958 End: 04-30-2019 History of tobacco use Current smoker [facility] Start: [birth year]-02-1958 End: 04-30-2019 History of tobacco use Cigarette Smoker [facility] Start: 09-06-2023 End: 09-13-2023 Cigarettes smoked current (pack per day) - Reported 0.5 [facility] Start: 09-13-2023 End: 02-22-2024 Tobacco use and exposure Smokeless tobacco non-user [facility] Start: 09-13-2023 End: 02-22-2024 Alcohol intake Current non-drinker of alcohol (finding) [facility] Adult Depression Screening Assessment 0 [facility] Start: 1945 Sex Assigned At Not on file C [facility] Functional Status Date Assessment Result Facility 07-16-2023 Functional Status N/A [facility] 06-23-2023 Functional Status N/A [facility] 06-23-2023 Functional Status [facility] Clinical Notes 01-12-2023 to 02-22-2024 Mariola Montes PA-C - 02/22/2024 3:00 PM EDTBGa steel MA - 02/22/2024 2:44 PM EDTPatient Mariola Trammell PA-C - 01/14/2024 2:00 PM Neelima Bojorquez APRN.[facility] - 10/17/2023 5:29 PM EDT Note Date & Type Note Facility 02-22-2024 History of Present illness Narrative [facility] - FOLLOW UP EVALUATION Md Kavon Sams (Inactive) No address on file Dear Md Kavon Sams (Inactive): I had the pleasure of seeing Ms. Khan for follow-up today. As you know she is a 79 year old right-handed female with a history of parkinson disease since 2014. She is seen with her daughter.. Subjective Previous Plan-01/14/2024 Visit: 'Jerking' AKA Dyskinesias - this got significantly worse when you increased from 1/2 tablet Sinemet three times per day up to 1 full tablet Sinemet three times per day. Amantadine helped temporarily, but now your dyskinesias are bad again. You may STOP regular Sinemet You may START Sinemet controlled release (CR) on the same schedule Please CONTINUE amantadine 2x per day Parkinson's Disease - please keep up your physical therapy and occupational therapy exercises at home! Try to do some every day Dry mouth - please grain picker some OTC spray to help Please come back to see me February 21 at 3:00PM Interval History: Judith presents to the office today for Parkinson's disease follow-up. Per instructions, she replaced Sinemet IR with Sinemet CR. She states that she is doing significantly better. She hardly has any tremor. She has been walking more and feeling in better spirits. She is still doing all of her cleaning and laundry. Her her dyskinesias are minimal. She feels that this medication change has been life-changing. She decided that she is going to travel to [place] to see her friends, which prior to this medication change she did not feel that she could do. Movement Disorders Medications Schedule - as of the start of the visit: Medications breakfast lunch bedtime ropinerole 0.25mg 1 azilect 1mg 1 sinemet CR 25/100mg 1 1 1 amantadine 100 mg 1 1 Prior Anti-Parkinson Therapies Carbidopa/Levodopa Rasagiline Ropinirole ALLERGIES Allergen Reactions Aleve [Naproxen Sod* Unknown Sulfa (Sulfonamide * Anaphylaxis Current Outpatient Medications Medication Sig carbidopa-levodopa CR (SINEMET CR) 25-100 mg per tablet Take 1 tablet by mouth three times a day. 7AM, 12PM, 5PM amantadine HCl (SYMMETREL) 100 mg tablet Take 1 tablet by mouth two times a day. Take with first and second dose of sinemet. gabapentin (NEURONTIN) 300 mg capsule TAKE 1 CAPSULE BY MOUTH ONCE DAILY X3DAYS, 1 CAPSULE TWICE DAILY X3DAYS THEN 1 CAPSULE 3 TIMES DAILY rasagiline (AZILECT) 1 mg tab Take by mouth. cyclobenzaprine (FLEXERIL) 10 mg tablet Take 10 mg by mouth. rOPINIRole (REQUIP) 0.25 mg tablet Reduce to 2 tablets, twice/day. After a week, reduce it to 1 tablet in morning and 2 tabs at night. After a week, reduce to only 2 tabs at night. After a week, reduce it to 1 tab at night. Continue on that dose thereafter. aspirin, enteric coated (ASPIR-LOW) 81 mg EC tablet Take 1 tablet by mouth once daily. pravastatin 20 mg tablet Take 20 mg by mouth once daily. lisinopril-hydrochlorothiazide 20-25 mg per tablet Take 1 tablet by mouth once daily. ALPRAZolam (XANAX) 1 mg tablet Take 1 mg by mouth at bedtime as needed. potassium chloride (KLOR-CON 10) 10 mEq tablet Take 20 mEq by mouth once daily. AMLODIPINE BESYLATE (AMLODIPINE ORAL) Take 10 mg by mouth once daily. Cholecalciferol, Vitamin D3, (D3 DOTS) 2,000 unit tab Take 2,000 Units by mouth once daily. MULTIVITAMIN (VITAMIN DAILY ORAL) Take by mouth once daily. KLOR-CON M20 20 mEq tablet Take 1 tablet by mouth every 12 hours. (Patient not taking: Reported on 09/13/2023) No current facility-administered medications for this visit. Objective Vital Signs: BP 133/73 (BP Site: Left Arm, BP Position: Sitting, BP Cuff Size: Regular Adult) Pulse 92 SpO2 95% General Physical Examination: Awake, alert, interactive, no acute distress, well kept woman. Mildly dyskinetic. MDS-UPDRS Motor subscale condition of exam Medication Off/On/Naiive ON Time of UPDRS 1530 Time of Last Medication 1200 Last Medication Taken Sinemet 25-100 1 tab DBS Right N/A DBS Left N/A MDS-UPDRS Motor subscale scores Speech 2-Mild. Loss of modulation, diction, or volume, with a few words unclear, but the overall sentences easy to follow. Facial Expression 2-Mild. In addition to decreased eye-blink frequency, Masked facies present in the lower face as well, namely fewer movements around the mouth, such as less spontaneous smiling, but lips not parted. Rigidity Neck 1-Slight. Rigidity only detected with activation maneuver. Rigidity Right Upper Extremity 0-Normal. No rigidity. Rigidity Left Upper Extremity 0-Normal. No rigidity. Rigidity Right Lower Extremity 0-Normal. No rigidity. Rigidity Left Lower Extremity 0-Normal. No rigidity. Finger Taps Right 2-Mild. a) 3 to 5 interruptions during tapping, b) mild slowing, c) the amplitude decrements midway in the 10-tap sequence. Finger Taps Left 1-Slight. a) the regular rhythm is broken with one or two interruptions or hesitations of the tapping movement, b) slight slowing, c) the amplitude decrements near the end of the 10 taps. Hand Movements Right 0-Normal. No problem. Hand Movements Left 2-Mild. a) 3 to 5 interruptions during the movements, b) mild slowing, c) the amplitude decrements midway in the task. Arm Movements Right 1-Slight. a) the regular rhythm is broken with one or two interruptions or hesitations of the movement, b) slight slowing, c) the amplitude decrements near the end of the sequence. Arm Movements Left 1-Slight. a) the regular rhythm is broken with one or two interruptions or hesitations of the movement, b) slight slowing, c) the amplitude decrements near the end of the sequence. Toe Taps Right 2-Mild. a) 3 to 5 interruptions during the tapping movements, b) mild slowing, c) the amplitude decrements midway in the task. Toe Taps Left 3-Moderate. a) more than 5 interruptions during the tapping movements or at least one longer arrest (freeze) in ongoing movement, b) moderate slowing, c) the amplitude decrements starting after the first tap. Leg Agility Right 0-Normal. No problems. Leg Agility Left 0-Normal. No problems. Arise From Chair 2-Mild. Pushes self up from arms of chair without difficulty. Gait 2-Mild. Independent walking but with substantial gait impairment. Gait Freezing 0-Normal. No freezing. Posture Stability 1-Slight. 3-5 steps, but subject recovers unaided. Posture 3-Moderate. Stooped posture, scoliosis or leaning to one side that cannot be corrected volitionally to a normal posture by the patient. Body Bradykinesia 1-Slight. Slight global slowness and poverty of spontaneous movements. Postural Tremor Hand Right 1-Slight. Tremor is present but less than 1cm in amplitude. Postural Tremor Hand Left 1-Slight. Tremor is present but less than 1cm in amplitude. Kinetic Tremor Right 2-Mild. Tremor is at least 1 but less than 3 cm in amplitude. Kinetic Tremor Left 1-Slight. Tremor is present but less than 1cm in amplitude. Rest Tremor Amplitude Right Upper Extremity 1-Slight. < 1 cm in maximal amplitude. Rest Tremor Amplitude Left Upper Extremity 0-Normal. No tremor. Rest Tremor Amplitude Right Lower Extremity 0-Normal. No tremor. Rest Tremor Amplitude Left Lower Extremity 0-Normal. No tremor. Rest Tremor Amplitude Lip/Jaw 0-Normal. No tremor. Rest Tremor Constancy 0-Normal. No tremor. MDS-UPDRS Motor subscale totals Left Total 9 Right Total 9 Midline Total 14 Tremor Total / 10 6 PIGD Total / 3 3 Overall Total 32 % Change Compared to Last Filed Total -31.91 Assessment and Plan: Assessment Ms. Khan is a right-handed 79 year old female with Parkinson's Disease since 2014. She presents to [facility] spring for care after many years of local care. Sinemet was reinitiated, as it had been discontinued prior to consult with our team. After changing Sinemet IR to Sinemet CR due to severe dyskinesias on 1 tablet TID, she notes remarkable improvement. UPDRS shows notable improvement (32%) and the patient is significantly less dyskinetic. States that her tremor is well-controlled and her dyskinesias are all but gone. Judith finds that she sleeps much better after this medication change and has improvement in her mood. She has been staying active with daily walks. She has decided that given how well she is doing, she is going to do some traveling with her daughter. Encouraged her to continue living a healthy lifestyle and current medication schedule. The following are the current problems noted and addressed during this visit: Parkinson's disease with dyskinesia and fluctuating manifestations (hcc) (primary encounter diagnosis) Plan 02/22/2024 Visit: Parkinson's Disease - I am so pleased to hear that your medication change was beneficial. Please continue medications as prescribed below. Continue daily walking Please follow-up in 6 to 8 months, or sooner with any new concerns Interested in clinical research? Not currently Updated Movement Disorders Medication Schedule: Medications breakfast lunch bedtime ropinerole 0.25mg 1 azilect 1mg 1 sinemet CR 25/100mg 1 1 1 amantadine 100 mg 1 1 Return at or around: 11/21/24 Level of service : 85275 (40-54 min). Time spent 41 min on the day of service, which included preparing to see the patient, [id number] patient care, completing clinical documentation, obtaining and/or reviewing separately obtained history, performing a medically appropriate examination, counseling and educating the patient/family/caregiver, and care coordination (not separately reported). Thank you for allowing me to be part of the clinical care of this patient! I look forward to continued participation in the patient s care with you. Please do not hesitate to call with any questions. Sincerely, Mariola Montes PA-C Reason for WROTF Tablet to not get completed: Patient wishes to abort because of stress/struggling or is interrupted by their hris specialist. documented in this encounter [facility] 02-22-2024 Note HNO ID: [id number] Author: MARIOLA MONTES PA-C Service: ? Author Type: Physician Flight Service Specialist Type: Progress Notes Filed: 02/22/2024 16:46 Note Text: [facility] - FOLLOW UP EVALUATION Md Kavon Sams (Inactive) No address on file Dear Md Kavon Sams (Inactive): I had the pleasure of seeing Ms. Khan for follow-up today. As you know she is a 79 year old right-handed female with a history of parkinson disease since 2014. She is seen with her daughter.. Subjective Previous Plan-01/14/2024 Visit: 'Jerking' AKA Dyskinesias - this got significantly worse when you increased from 1/2 tablet Sinemet three times per day up to 1 full tablet Sinemet three times per day. Amantadine helped temporarily, but now your dyskinesias are bad again. You may STOP regular Sinemet You may START Sinemet controlled release (CR) on the same schedule Please CONTINUE amantadine 2x per day Parkinson's Disease - please keep up your physical therapy and occupational therapy exercises at home! Try to do some every day Dry mouth - please grain picker some OTC spray to help Please come back to see me February 21 at 3:00PM Interval History: Judith presents to the office today for Parkinson's disease follow-up. Per instructions, she replaced Sinemet IR with Sinemet CR. She states that she is doing significantly better. She hardly has any tremor. She has been walking more and feeling in better spirits. She is still doing all of her cleaning and laundry. Her her dyskinesias are minimal. She feels that this medication change has been life-changing. She decided that she is going to travel to [place] to see her friends, which prior to this medication change she did not feel that she could do. Movement Disorders Medications Schedule - as of the start of the visit: Medications breakfast lunch bedtime ropinerole 0.25mg 1 azilect 1mg 1 sinemet CR 25/100mg 1 1 1 amantadine 100 mg 1 1 Prior Anti-Parkinson Therapies Carbidopa/Levodopa Rasagiline Ropinirole ALLERGIES Allergen Reactions Aleve [Naproxen Sod* Unknown Sulfa (Sulfonamide * Anaphylaxis Current Outpatient Medications Medication Sig carbidopa-levodopa CR (SINEMET CR) 25-100 mg per tablet Take 1 tablet by mouth three times a day. 7AM, 12PM, 5PM amantadine HCl (SYMMETREL) 100 mg tablet Take 1 tablet by mouth two times a day. Take with first and second dose of sinemet. gabapentin (NEURONTIN) 300 mg capsule TAKE 1 CAPSULE BY MOUTH ONCE DAILY X3DAYS, 1 CAPSULE TWICE DAILY X3DAYS THEN 1 CAPSULE 3 TIMES DAILY rasagiline (AZILECT) 1 mg tab Take by mouth. cyclobenzaprine (FLEXERIL) 10 mg tablet Take 10 mg by mouth. rOPINIRole (REQUIP) 0.25 mg tablet Reduce to 2 tablets, twice/day. After a week, reduce it to 1 tablet in morning and 2 tabs at night. After a week, reduce to only 2 tabs at night. After a week, reduce it to 1 tab at night. Continue on that dose thereafter. aspirin, enteric coated (ASPIR-LOW) 81 mg EC tablet Take 1 tablet by mouth once daily. pravastatin 20 mg tablet Take 20 mg by mouth once daily. lisinopril-hydrochlorothiazide 20-25 mg per tablet Take 1 tablet by mouth once daily. ALPRAZolam (XANAX) 1 mg tablet Take 1 mg by mouth at bedtime as needed. potassium chloride (KLOR-CON 10) 10 mEq tablet Take 20 mEq by mouth once daily. AMLODIPINE BESYLATE (AMLODIPINE ORAL) Take 10 mg by mouth once daily. Cholecalciferol, Vitamin D3, (D3 DOTS) 2,000 unit tab Take 2,000 Units by mouth once daily. MULTIVITAMIN (VITAMIN DAILY ORAL) Take by mouth once daily. KLOR-CON M20 20 mEq tablet Take 1 tablet by mouth every 12 hours. (Patient not taking: Reported on 09/13/2023) No current facility-administered medications for this visit. Objective Vital Signs: BP 133/73 (BP Site: Left Arm, BP Position: Sitting, BP Cuff Size: Regular Adult) Pulse 92 SpO2 95% General Physical Examination: Awake, alert, interactive, no acute distress, well kept woman. Mildly dyskinetic. MDS-UPDRS Motor subscale condition of exam Medication Off/On/Naiive ON Time of UPDRS 1530 Time of Last Medication 1200 Last Medication Taken Sinemet 25-100 1 tab DBS Right N/A DBS Left N/A MDS-UPDRS Motor subscale scores Speech 2-Mild. Loss of modulation, diction, or volume, with a few words unclear, but the overall sentences easy to follow. Facial Expression 2-Mild. In addition to decreased eye-blink frequency, Masked facies present in the lower face as well, namely fewer movements around the mouth, such as less spontaneous smiling, but lips not parted. Rigidity Neck 1-Slight. Rigidity only detected with activation maneuver. Rigidity Right Upper Extremity 0-Normal. No rigidity. Rigidity Left Upper Extremity 0-Normal. No rigidity. Rigidity Right Lower Extremity 0-Normal. No rigidity. Rigidity Left Lower Extremity 0-Normal. No rigidity. Finger Taps Right 2-Mild. a) 3 to 5 interruptions during tapping, b) mild slowing, c) (more content not included)... [facility] 02-22-2024 Note HNO ID: [id number] Author: GA SHAW MA Service: ? Author Type: Tree Specialist Type: Progress Notes Filed: 02/22/2024 16:46 Note Text: Reason for WROTF Tablet to not get completed: Patient wishes to abort because of stress/struggling or is interrupted by their hris specialist. [facility] 01-14-2024 Instructions Mariola Montes PA-C - 01/14/2024 2:43 PM EDT It was a pleasure to see you today. We addressed the following diagnoses: Parkinson's disease with dyskinesia and fluctuating manifestations (hcc) (primary encounter diagnosis) My recommendations are as follows: 01/14/2024 Visit: 'Jerking' AKA Dyskinesias - this got significantly worse when you increased from 1/2 tablet Sinemet three times per day up to 1 full tablet Sinemet three times per day. Amantadine helped temporarily, but now your dyskinesias are bad again. You may STOP regular Sinemet You may START Sinemet controlled release (CR) on the same schedule Please CONTINUE amantadine 2x per day Parkinson's Disease - please keep up your physical therapy and occupational therapy exercises at home! Try to do some every day Dry mouth - please grain picker some OTC spray to help Please come back to see me February 21 at 3:00PM Interested in clinical research? Not currently Movement Disorders Medication Schedule: Medications breakfast lunch bedtime ropinerole 0.25mg 1 azilect 1mg 1 sinemet CR 25/100mg 1 1 1 amantadine 100 mg 1 No follow-ups on file.Return at or around: 02/14/24 If there are any concerns before your next visit, please call or you can send a message through [employer]. You can also now schedule and select appointments through [employer]. Mariola Montes PA-C documented in this encounter [facility] 01-14-2024 History of Present illness Narrative [facility] - FOLLOW UP EVALUATION Md Kavon Sams (Inactive) No address on file Dear Md Kavon Sams (Inactive): I had the pleasure of seeing Ms. Khan for follow-up today. As you know she is a 78 year old right-handed female with a history of parkinson disease since 2014. She is seen with her daughter Kathie. Subjective Previous Plan-10/15/2023 Visit: Parkinson's Disease-Continue sinemet Start Amantadine 100 mg once daily Follow up with Dr. Valente in 3 months Interval History: Judith presents to the office for Parkinson's Disease follow up. She was evaluated by Dr. Valente this spring. Reports that she restarted sinemet slowly as directed. This was very helpful for her tremor. She now takes 1 tablet TID. While increasing from 0.5 tablets to 1 tablet TID, she developed very bothersome dyskinesias. Amantadine was started. She says that this was like a miracle for two weeks, but then the dyskinesias started again. Amantadine was increased to BID, which helped for a short while, but now her dyskinesias are severe. Also developed dry mouth with amantadine. She admits to some trouble with balance, but has no recent falls. She is quite upset and frustrated about her dyskinesia. She is embarrassed to go anywhere because of it. Movement Disorders Medications Schedule - as of the start of the visit: Medications breakfast lunch bedtime ropinerole 0.25mg 1 azilect 1mg 1 sinemet 25/100mg 1 1 1 amantadine 100 mg 1 1 Prior Anti-Parkinson Therapies Carbidopa/Levodopa Rasagiline Ropinirole ALLERGIES Allergen Reactions Aleve [Naproxen Sod* Unknown Sulfa (Sulfonamide * Anaphylaxis Current Outpatient Medications Medication Sig amantadine HCl (SYMMETREL) 100 mg tablet Take 1 tablet by mouth two times a day. Take with first and second dose of sinemet. gabapentin (NEURONTIN) 300 mg capsule TAKE 1 CAPSULE BY MOUTH ONCE DAILY X3DAYS, 1 CAPSULE TWICE DAILY X3DAYS THEN 1 CAPSULE 3 TIMES DAILY rasagiline (AZILECT) 1 mg tab Take by mouth. cyclobenzaprine (FLEXERIL) 10 mg tablet Take 10 mg by mouth. rOPINIRole (REQUIP) 0.25 mg tablet Reduce to 2 tablets, twice/day. After a week, reduce it to 1 tablet in morning and 2 tabs at night. After a week, reduce to only 2 tabs at night. After a week, reduce it to 1 tab at night. Continue on that dose thereafter. aspirin, enteric coated (ASPIR-LOW) 81 mg EC tablet Take 1 tablet by mouth once daily. pravastatin 20 mg tablet Take 20 mg by mouth once daily. lisinopril-hydrochlorothiazide 20-25 mg per tablet Take 1 tablet by mouth once daily. ALPRAZolam (XANAX) 1 mg tablet Take 1 mg by mouth at bedtime as needed. potassium chloride (KLOR-CON 10) 10 mEq tablet Take 20 mEq by mouth once daily. AMLODIPINE BESYLATE (AMLODIPINE ORAL) Take 10 mg by mouth once daily. Cholecalciferol, Vitamin D3, (D3 DOTS) 2,000 unit tab Take 2,000 Units by mouth once daily. MULTIVITAMIN (VITAMIN DAILY ORAL) Take by mouth once daily. carbidopa-levodopa CR (SINEMET CR) 25-100 mg per tablet Take 1 tablet by mouth three times a day. 7AM, 12PM, 5PM KLOR-CON M20 20 mEq tablet Take 1 tablet by mouth every 12 hours. (Patient not taking: Reported on 09/13/2023) No current facility-administered medications for this visit. Objective Vital Signs: BP 144/63 (BP Site: Right Arm, BP Position: Sitting, BP Cuff Size: Regular Adult) Pulse 92 Ht 167.6 cm (5' 6 ) Wt 54 kg (119 lb) SpO2 92% BMI 19.21 kg/m General Physical Examination: Awake, alert, interactive, no acute distress, normal development, well-kept woman. Severely dyskinetic. Leaning left in chair. Right arm flexed and held against torso at rest, hand in fist. MDS-UPDRS Motor subscale condition of exam Medication Off/On/Naiive ON Time of UPDRS 1415 Time of Last Medication 1200 Last Medication Taken Sinemet 25-100 1 tab + amantadine 100 mg DBS Right N/A DBS Left N/A MDS-UPDRS Motor subscale scores Speech 2-Mild. Loss of modulation, diction, or volume, with a few words unclear, but the overall sentences easy to follow. Facial Expression 3-Moderate. Masked facies with lips parted some of the time when the mouth is at rest. Rigidity Neck 1-Slight. Rigidity only detected with activation maneuver. Rigidity Right Upper Extremity 0-Normal. No rigidity. Rigidity Left Upper Extremity 0-Normal. No rigidity. Rigidity Right Lower Extremity 0-Normal. No rigidity. Rigidity Left Lower Extremity 0-Normal. No rigidity. Finger Taps Right 3-Moderate. a) more than 5 interruptions during tapping or at least one longer arrest (freeze) in ongoing movement, b) moderate slowing, c) the amplitude decrements starting after the 1st tap. Finger Taps Left 2-Mild. a) 3 to 5 interruptions during tapping, b) mild slowing, c) the amplitude decrements midway in the 10-tap sequence. Hand Movements Right 1-Slight. a) the regular rhythm is broken with one or two interruptions or hesitations of the movement, b) slight slowing, c) the amplitude decrements near the end of the task. Hand Movements Left 3-Moderate. a) more than 5 interruptions during the movement or at least one longer arrest (freeze) in ongoing movement, b) moderate slowing, c) the amplitude decrements starting after the 1st [id number] sequence. Arm Movements Right 1-Slight. a) the regular rhythm is broken with one or two interruptions or hesitations of the movement, b) slight slowing, c) the amplitude decrements near the end of the sequence. Arm Movements Left 3-Moderate. a) more than 5 interruptions during the movement or at least one longer arrest (freeze) in ongoing movement, b) moderate slowing, c) the amplitude decrements starting after the 1st supination-pronation sequence. Toe Taps Right 2-Mild. a) 3 to 5 interruptions during the tapping movements, b) mild slowing, c) the amplitude decrements midway in the task. Toe Taps Left 3-Moderate. a) more than 5 interruptions during the tapping movements or at least one longer arrest (freeze) in ongoing movement, b) moderate slowing, c) the amplitude decrements starting after the first tap. Leg Agility Right 1-Slight. a) the regular rhythm is broken with one or two interruptions or hesitations of the movement, b) slight slowing, c) the amplitude decrements near the end of the task. Leg Agility Left 2-Mild. a) 3 to 5 interruptions during the movements, b) mild slowness, c) the amplitude decrements midway in the task. Arise From Chair 3-Moderate. Needs to push off, but tends to fall back, or may have to try more than one time using arms of chair, but can get up without help. Gait 2-Mild. Independent walking but with substantial gait impairment. Gait Freezing 0-Normal. No freezing. Posture Stability 3-Moderate. Stands safely, but with absence of postural response, falls if not caught by examiner. Posture 4-Severe. Flexion, scoliosis or leaning with extreme abnormality of posture. Body Bradykinesia 3-Moderate. Moderate global slowness and poverty of spontaneous movements. Postural Tremor Hand Right 1-Slight. Tremor is present but less than 1cm in amplitude. Postural Tremor Hand Left 0-Normal. No tremor. Kinetic Tremor Right 2-Mild. Tremor is at least 1 but less than 3 cm in amplitude. Kinetic Tremor Left 2-Mild. Tremor is at least 1 but less than 3 cm in amplitude. Rest Tremor Amplitude Right Upper Extremity 0-Normal. No tremor. Rest Tremor Amplitude Left Upper Extremity 0-Normal. No tremor. Rest Tremor Amplitude Right Lower Extremity 0-Normal. No tremor. Rest Tremor Amplitude Left Lower Extremity 0-Normal. No tremor. Rest Tremor Amplitude Lip/Jaw 0-Normal. No tremor. Rest Tremor Constancy 0-Normal. No tremor. MDS-UPDRS Motor subscale totals Left Total 15 Right Total 11 Midline Total 21 Tremor Total / 10 5 PIGD Total / 3 5 Overall Total 47 % Change Compared to Last Filed Total Assessment and Plan: Assessment Ms. Khan is a right-handed 78 year old female with Parkinson's Disease since 2014. She presents to [facility] spring for care after many years of local care. Sinemet was reinitiated, as it had been discontinued prior to consult with our team. Today her most significant concern is dyskinesia. Her tremor is gone, but she feels that she can hardly do anything because of the 'jerking.' It is severe and causing emotional distress. This is at only 1 tablet sinemet IR TID with amantadine BID. It seems she quickly habituated to amantadine. We discussed multiple options to troubleshoot dyskinesia on low dose sinemet, and ultimately agree to trial Sinemet CR in place of IR. The following are the current problems noted and addressed during this visit: Parkinson's disease with dyskinesia and fluctuating manifestations (hcc) (primary encounter diagnosis) Plan 01/14/2024 Visit: 'Jerking' AKA Dyskinesias - this got significantly worse when you increased from 1/2 tablet Sinemet three times per day up to 1 full tablet Sinemet three times per day. Amantadine helped temporarily, but now your dyskinesias are bad again. You may STOP regular Sinemet You may START Sinemet controlled release (CR) on the same schedule Please CONTINUE amantadine 2x per day Parkinson's Disease - please keep up your physical therapy and occupational therapy exercises at home! Try to do some every day Dry mouth - please grain picker some OTC spray to help Please come back to see me February 21 at 3:00PM Interested in clinical research? Not currently Updated Movement Disorders Medication Schedule: Medications breakfast lunch bedtime ropinerole 0.25mg 1 azilect 1mg 1 sinemet CR 25/100mg 1 1 1 amantadine 100 mg 1 Return at or around: 02/14/24 Level of service : 17220 + 2 units 28836 ( > 55 min, [id number] for each 15 min > 40). Time spent 75 min on the day of service, which included preparing to see the patient, [id number] patient care, completing clinical documentation, obtaining and/or reviewing separately obtained history, performing a medically appropriate examination, counseling and educating the patient/family/caregiver, ordering medications, tests, or procedures, and care coordination (not separately reported). Thank you for allowing me to be part of the clinical care of this patient! I look forward to continued participation in the patient s care with you. Please do not hesitate to call with any questions. Sincerely, Mariola Montes PA-C documented in this encounter [facility] 01-14-2024 Note HNO ID: [id number] Author: MARIOLA MONTES PA-C Service: ? Author Type: Physician Flight Service Specialist Type: Progress Notes Filed: 01/14/2024 20:44 Note Text: [facility] - FOLLOW UP EVALUATION Md Kavon Sams (Inactive) No address on file Dear Md Kavon Sams (Inactive): I had the pleasure of seeing Ms. Khan for follow-up today. As you know she is a 78 year old right-handed female with a history of parkinson disease since 2014. She is seen with her daughter Kathie. Subjective Previous Plan-10/15/2023 Visit: Parkinson's Disease-Continue sinemet Start Amantadine 100 mg once daily Follow up with Dr. Valente in 3 months Interval History: Judith presents to the office for Parkinson's Disease follow up. She was evaluated by Dr. Valente this spring. Reports that she restarted sinemet slowly as directed. This was very helpful for her tremor. She now takes 1 tablet TID. While increasing from 0.5 tablets to 1 tablet TID, she developed very bothersome dyskinesias. Amantadine was started. She says that this was like a miracle for two weeks, but then the dyskinesias started again. Amantadine was increased to BID, which helped for a short while, but now her dyskinesias are severe. Also developed dry mouth with amantadine. She admits to some trouble with balance, but has no recent falls. She is quite upset and frustrated about her dyskinesia. She is embarrassed to go anywhere because of it. Movement Disorders Medications Schedule - as of the start of the visit: Medications breakfast lunch bedtime ropinerole 0.25mg 1 azilect 1mg 1 sinemet 25/100mg 1 1 1 amantadine 100 mg 1 1 Prior Anti-Parkinson Therapies Carbidopa/Levodopa Rasagiline Ropinirole ALLERGIES Allergen Reactions Aleve [Naproxen Sod* Unknown Sulfa (Sulfonamide * Anaphylaxis Current Outpatient Medications Medication Sig amantadine HCl (SYMMETREL) 100 mg tablet Take 1 tablet by mouth two times a day. Take with first and second dose of sinemet. gabapentin (NEURONTIN) 300 mg capsule TAKE 1 CAPSULE BY MOUTH ONCE DAILY X3DAYS, 1 CAPSULE TWICE DAILY X3DAYS THEN 1 CAPSULE 3 TIMES DAILY rasagiline (AZILECT) 1 mg tab Take by mouth. cyclobenzaprine (FLEXERIL) 10 mg tablet Take 10 mg by mouth. rOPINIRole (REQUIP) 0.25 mg tablet Reduce to 2 tablets, twice/day. After a week, reduce it to 1 tablet in morning and 2 tabs at night. After a week, reduce to only 2 tabs at night. After a week, reduce it to 1 tab at night. Continue on that dose thereafter. aspirin, enteric coated (ASPIR-LOW) 81 mg EC tablet Take 1 tablet by mouth once daily. pravastatin 20 mg tablet Take 20 mg by mouth once daily. lisinopril-hydrochlorothiazide 20-25 mg per tablet Take 1 tablet by mouth once daily. ALPRAZolam (XANAX) 1 mg tablet Take 1 mg by mouth at bedtime as needed. potassium chloride (KLOR-CON 10) 10 mEq tablet Take 20 mEq by mouth once daily. AMLODIPINE BESYLATE (AMLODIPINE ORAL) Take 10 mg by mouth once daily. Cholecalciferol, Vitamin D3, (D3 DOTS) 2,000 unit tab Take 2,000 Units by mouth once daily. MULTIVITAMIN (VITAMIN DAILY ORAL) Take by mouth once daily. carbidopa-levodopa CR (SINEMET CR) 25-100 mg per tablet Take 1 tablet by mouth three times a day. 7AM, 12PM, 5PM KLOR-CON M20 20 mEq tablet Take 1 tablet by mouth every 12 hours. (Patient not taking: Reported on 09/13/2023) No current facility-administered medications for this visit. Objective Vital Signs: BP 144/63 (BP Site: Right Arm, BP Position: Sitting, BP Cuff Size: Regular Adult) Pulse 92 Ht 167.6 cm (5' 6 ) Wt 54 kg (119 lb) SpO2 92% BMI 19.21 kg/m? General Physical Examination: Awake, alert, interactive, no acute distress, normal development, well-kept woman. Severely dyskinetic. Leaning left in chair. Right arm flexed and held against torso at rest, hand in fist. MDS-UPDRS Motor subscale condition of exam Medication Off/On/Naiive ON Time of UPDRS 1415 Time of Last Medication 1200 Last Medication Taken Sinemet 25-100 1 tab + amantadine 100 mg DBS Right N/A DBS Left N/A MDS-UPDRS Motor subscale scores Speech 2-Mild. Loss of modulation, diction, or volume, with a few words unclear, but the overall sentences easy to follow. Facial Expression 3-Moderate. Masked facies with lips parted some of the time when the mouth is at rest. Rigidity Neck 1-Slight. Rigidity only detected with activation maneuver. Rigidity Right Upper Extremity 0-Normal. No rigidity. Rigidity Left Upper Extremity 0-Normal. No rigidity. Rigidity Right Lower Extremity 0-Normal. No rigidity. Rigidity Left Lower Extremity 0-Normal. No rigidity. Finger Taps Right 3-Moderate. a) more than 5 interruptions during tapping or at least one longer arrest (freeze) in ongoing movement, b) moderate slowing, c) the amplitude decrements starting after the 1st tap. Finger Taps Left 2-Mild. a) 3 to 5 interruptions during tapping, b) mild slowing, c) the amplitude decrement (more content not included)... [facility] 12-20-2023 Note Cardiology Clinic No te Chief Complaint: New patient for abnormal stress test HPI: Judith Khan is a 78 y.o. female with a past medical history including COPD, HTN, HLD, and Parkinson's. Patient follows with cardiology for HTN and HLD. She presents today for follow up. Patient adamantly denies any cardiac complaints or concerns. Patient denies any chest pain or shortness of breath. Patient denies any lower extremity edema, orthopnea, or proximal nocturnal dyspnea. No near-syncope or syncope. No dizziness or lightheadedness. Cardiology ROS: GENERAL: Denies fever, chills, night [...] She has a past medical history of Chronic gastric ulcer without hemorrhage and without perforation, COPD (chronic obstructive pulmonary disease) ([facility]), Emphysema lung ([facility]), Hiatal hernia (05/2023), Hyperlipidemia, Hypertension, Parkinson disease ([facility]), Renal stones, TIA (transient ischemic attack) (06/2023), UPJ obstruction, acquired, and UTI (urinary tract infection) (06/2023). Surgical History She has a past surgical history that includes Foot surgery; Hysterectomy; Cardiac catheterization; and Upper gastrointestinal endoscopy. Social History She reports that she quit smoking about 6 years ago. Her smoking use included cigarettes. She has never used smokeless tobacco. She reports that she does not drink alcohol and does not use drugs. Family History Family History Problem Relation Name Age of Onset Stroke Mother Stroke Brother Other (cabg) Mother's Sister Coronary artery disease Mother's Sister Stroke Maternal Grandmother Medications Current Outpatient Medications on File Prior to Visit Medication Sig Dispense Refill ALPRAZolam (Xanax) 1 mg tablet Take 1 tablet by mouth in the morning. amantadine (Symmetrel) 100 mg tablet TAKE 1 TABLET BY MOUTH TWO TIMES A DAY. TAKE WITH FIRST AND SECOND DOSE OF SINEMET. amLODIPine (Norvasc) 5 mg tablet TAKE 1 TABLET BY MOUTH ONCE A DAY DIRECTED 90 tablet 3 aspirin 81 mg EC tablet 1 (one) time each day at the same time. carbidopa-levodopa (Sinemet) 25-100 mg tablet TAKE 1/2 TABLET BY MOUTH 3 TIMES A DAY FOR 7 DAYS THEN 1 TABLET 3 TIMES A DAY *7AM, NOON AND 5PM* cholecalciferol (Vitamin D-3) 50 MCG (2000 UT) tablet Take 2,000 Units by mouth in the morning. cyclobenzaprine (Flexeril) 10 mg tablet Take 10 mg by mouth if needed in the morning and at bedtime. gabapentin (Neurontin) 300 mg capsule TAKE 1 CAPSULE BY MOUTH ONCE DAILY X3DAYS, 1 CAPSULE TWICE DAILY X3DAYS THEN 1 CAPSULE 3 TIMES DAILY Klor-Con M20 20 mEq ER tablet Take 20 mEq by mouth in the morning and at bedtime. lisinopril 20 mg tablet Take 1 tablet by mouth in the morning. omeprazole (PriLOSEC) [address] capsule TAKE 2 CAPSULES BY MOUTH ONCE EVERY MORNING *DO NOT CRUSH/CHEW/SPLIT* pantoprazole (ProtoNix) 40 mg EC tablet Take 1 tablet (40 mg) by mouth before breakfast. Do not crush, chew, or split. 30 tablet 11 pravastatin (Pravachol) 20 mg tablet Take 20 mg by mouth at bedtime. rasagiline (Azilect) 1 mg tablet 1 mg 1 (one) time each day. rOPINIRole (Requip) 0.5 mg tablet every 8 (eight) hours. isosorbide mononitrate ER (Imdur) 60 mg 24 hr tablet Take 60 mg by mouth in the morning. lisinopriL-hydrochlorothiazide 20-25 mg tablet Take 1 tablet by mouth in the morning. omeprazole OTC (PriLOSEC OTC) 20 mg EC tablet Take 2 tablets (40 mg) by mouth in the morning. Do not crush, chew, or split. 60 tablet 11 No current facility-administered medications on file prior to visit. Allergies Sulfa (sulfonamide antibiotics) and Trazodone Physical Exam VITAL SIGNS: BP 128/80 (BP Location: Left arm, Patient Position: Sitting) Pulse 93 Ht 1.676 m (5' 6 ) Wt 54 kg (119 lb) SpO2 94% BMI 19.21 kg/m??? Constitutional: Well developed, Well nourished, No [...] rhythm, No murmurs, No rubs, No gallops. (more content not included)... [facility] 11-27-2023 Note Subjective Patient ID: Judith Khan is a 78 y.o. female who presents for Post-op (Judith is here today for a post op visit for an incisional hernia, s/p 09/17/23 DaVinci incisional hernia repair. ). HPI 78 years old white female is status post robotic incisional hernia repair with mesh on September 17, 2023. He denies of abdominal wall bulging, abdominal pain, nausea, vomiting. Review of Systems Constitutional: Negative. Respiratory: Negative. Cardiovascular: Negative. Gastrointestinal: Negative. Genitourinary: Negative. Neurological: Negative. Hematological: Bruises/bleeds easily. Objective Visit Vitals BP 157/83 (BP Location: Right arm, Patient Position: Sitting) Pulse 87 Temp 36.3 ???C (97.4 ???F) (Oral) Physical Exam HENT: Head: Atraumatic. Cardiovascular: Rate and Rhythm: Normal rate. Pulmonary: Effort: Pulmonary effort is normal. Abdominal: General: Abdomen is flat. Palpations: Abdomen is soft. Hernia: No hernia is present. Musculoskeletal: Cervical back: Neck supple. Neurological: Mental Status: She is alert and oriented to person, place, and time. Assessment/Plan Postoperative visit Avoid lifting more than 20 pounds Follow-up as needed. No diagnosis found. No orders of the defined types were placed in this encounter. No results found for this or any previous visit (from the past 36 hour(s)). No follow-ups on file. [facility] 11-08-2023 Note Addended by: Madison VALENTE on: 11/08/2023 03:27 PM Modules accepted: Orders [facility] 11-08-2023 Miscellaneous Notes Addended by: DAVID VALENTE on: 11/08/2023 03:27 PM Modules accepted: Orders Addended by: DULCE MELGAR on: 11/08/2023 02:48 PM Modules accepted: Orders Spoke with Jaimee. Instructed her to increase the Amantadine to 100mg BID (to be taken with the first 2 daily doses of Sinemet). Jaimee verbalized understanding and is in agreement with POC. Ok, if no side effects can she please increase to 100mg in morning and 100mg at noon? I will update the prescription. Spoke with Jaimee. Reports that pt is experiencing right sided dyskinesia (arm/shoulder). Pt has been taking 100mg Amantadine daily. She initially had relief from the dyskinesia but now they have returned. Jaimee (pt' granddaughter) called to report this week pt's back to experiencing jerking movement. Pt started Amantadine 100 mg week of October 24 and first week medication helped dyskinesia. [phone] 09/13/23 DARRYL w/Dr. Valente documented in this encounter [facility] 11-08-2023 Note Addended by: DULCE JONES on: 11/08/2023 02:48 PM Modules accepted: Orders [facility] 11-08-2023 Telephone encounter Note Spoke with Jaimee. Instructed her to increase the Amantadine to 100mg BID (to be taken with the first 2 daily doses of Sinemet). Jaimee verbalized understanding and is in agreement with POC. [facility] 11-08-2023 Telephone encounter Note Ok, if no side effects can she please increase to 100mg in morning and 100mg at noon? I will update the prescription. [facility] 11-08-2023 Telephone encounter Note Spoke with Jaimee. Reports that pt is experiencing right sided dyskinesia (arm/shoulder). Pt has been taking 100mg Amantadine daily. She initially had relief from the dyskinesia but now they have returned. [facility] 11-08-2023 Telephone encounter Note Jaimee (pt' granddaughter) called to report this week pt's back to experiencing jerking movement. Pt started Amantadine 100 mg week of October 24 and first week medication helped dyskinesia. [phone] 09/13/23 FUV w/Dr. Valente T [facility] 10-17-2023 Note HNO ID: [id number] Author: NEELIMA ORTEGA APRN.HAND RIGGER Service: ? Author Type: Nurse Practitioner Type: Progress Notes Filed: 10/17/2023 17:38 Note Text: [facility] - FOLLOW UP EVALUATION - TELEPHONE VISIT Md Kavon Sams (Inactive) No address on file Dear Md Kavon Sams (Inactive): I had the pleasure of seeing Ms. Khan for follow-up today. As you know she is a 78 year old right-handed female with a history of parkinson disease since 2014. We had a visit using: Telephone Telephone Interval History Patient was unable to connect to virtual visit. So proceeded with telephone visit. She reports increasing Sinemet has helped the tremor and motor symptoms significantly. She now has dyskinesias and had previously discussed amantadine with Dr. Valente and would like to try. She lives with her daughter. Denies hallucinations. Denies orthostatic hypotension. Denies cognitive issues. Movement Disorders Medications Schedule - as of the start of the visit: Medications breakfast lunch bedtime ropinerole 0.25mg 1 azilect 1mg 1 sinemet 25/100mg 1 1 1 Prior Anti-Parkinson Therapies Carbidopa/Levodopa Rasagiline Ropinirole ALLERGIES Allergen Reactions Aleve [Naproxen Sod* Unknown Sulfa (Sulfonamide * Anaphylaxis Current Outpatient Medications Medication Sig amantadine HCl (SYMMETREL) 100 mg tablet Take 1 tablet by mouth once daily. amantadine HCl (SYMMETREL) 100 mg tablet Take 1 tablet by mouth two times a day. gabapentin (NEURONTIN) 300 mg capsule TAKE 1 CAPSULE BY MOUTH ONCE DAILY X3DAYS, 1 CAPSULE TWICE DAILY X3DAYS THEN 1 CAPSULE 3 TIMES DAILY rasagiline (AZILECT) 1 mg tab Take by mouth. KLOR-CON M20 20 mEq tablet Take 1 tablet by mouth every 12 hours. (Patient not taking: Reported on 09/13/2023) cyclobenzaprine (FLEXERIL) 10 mg tablet Take 10 mg by mouth. carbidopa-levodopa (SINEMET) 25-100 mg per tablet Take 0.5 tablets by mouth three times a day for 7 days, THEN 1 tablet three times a day. Take at 7am, noon, and 5pm.. rOPINIRole (REQUIP) 0.25 mg tablet Reduce to 2 tablets, twice/day. After a week, reduce it to 1 tablet in morning and 2 tabs at night. After a week, reduce to only 2 tabs at night. After a week, reduce it to 1 tab at night. Continue on that dose thereafter. aspirin, enteric coated (ASPIR-LOW) 81 mg EC tablet Take 1 tablet by mouth once daily. pravastatin 20 mg tablet Take 20 mg by mouth once daily. lisinopril-hydrochlorothiazide 20-25 mg per tablet Take 1 tablet by mouth once daily. ALPRAZolam (XANAX) 1 mg tablet Take 1 mg by mouth at bedtime as needed. potassium chloride (KLOR-CON 10) 10 mEq tablet Take 20 mEq by mouth once daily. AMLODIPINE BESYLATE (AMLODIPINE ORAL) Take 10 mg by mouth once daily. Cholecalciferol, Vitamin D3, (D3 DOTS) 2,000 unit tab Take 2,000 Units by mouth once daily. MULTIVITAMIN (VITAMIN DAILY ORAL) Take by mouth once daily. No current facility-administered medications for this visit. Questionnaires: Assessment and Plan: Assessment Ms. Khan is a right-handed 78 year old female with Parkinson's Disease since 2014. She presents telephone visit- unable to connect to virtual visit. She has had improvement in motor symptoms with increased Sinemet. However, she is now experiencing dyskinesias. Discussed Amantadine including side effect profile to watch out for - changes in cognition, dizziness, livideo reticularis, hallucinations. Discussed plan with Dr. Valente. The following are the current problems noted and addressed during this visit: Parkinson's disease with dyskinesia and fluctuating manifestations (hcc) (primary encounter diagnosis) Plan 10/15/2023 Visit: Parkinson's Disease-Continue sinemet Start Amantadine 100 mg once daily Follow up with Dr. Valente in 3 months Updated Movement Disorder Medication Schedule: Medications breakfast lunch bedtime ropinerole 0.25mg 1 azilect 1mg 1 sinemet 25/100mg 1 1 1 amantadine 100 mg 1 Level of service : 56507 (20-29 min). Time spent 25 min on the day of service, which included preparing to see the patient, completing clinical documentation, obtaining and/or reviewing separately obtained history, counseling and educating the patient/family/caregiver, and ordering medications, tests, or procedures. Thank you for allowing me to be part of the clinical care of this patient! I look forward to continued participation in the patient?s care with you. Please do not hesitate to call with any questions. Sincerely, Neelima Ortega APRN.[facility] 10-17-2023 Note Addended by: Gerardo ORTEGA on: 10/17/2023 05:29 PM Modules accepted: Orders [facility] 10-17-2023 History of Present illness Narrative [facility] - FOLLOW UP EVALUATION - TELEPHONE VISIT Md Kavon Sams (Inactive) No address on file Dear Md Kavon Sams (Inactive): I had the pleasure of seeing Ms. Khan for follow-up today. As you know she is a 78 year old right-handed female with a history of parkinson disease since 2014. We had a visit using: Telephone Telephone Interval History Patient was unable to connect to virtual visit. So proceeded with telephone visit. She reports increasing Sinemet has helped the tremor and motor symptoms significantly. She now has dyskinesias and had previously discussed amantadine with Dr. Valente and would like to try. She lives with her daughter. Denies hallucinations. Denies orthostatic hypotension. Denies cognitive issues. Movement Disorders Medications Schedule - as of the start of the visit: Medications breakfast lunch bedtime ropinerole 0.25mg 1 azilect 1mg 1 sinemet 25/100mg 1 1 1 Prior Anti-Parkinson Therapies Carbidopa/Levodopa Rasagiline Ropinirole ALLERGIES Allergen Reactions Aleve [Naproxen Sod* Unknown Sulfa (Sulfonamide * Anaphylaxis Current Outpatient Medications Medication Sig amantadine HCl (SYMMETREL) 100 mg tablet Take 1 tablet by mouth once daily. amantadine HCl (SYMMETREL) 100 mg tablet Take 1 tablet by mouth two times a day. gabapentin (NEURONTIN) 300 mg capsule TAKE 1 CAPSULE BY MOUTH ONCE DAILY X3DAYS, 1 CAPSULE TWICE DAILY X3DAYS THEN 1 CAPSULE 3 TIMES DAILY rasagiline (AZILECT) 1 mg tab Take by mouth. KLOR-CON M20 20 mEq tablet Take 1 tablet by mouth every 12 hours. (Patient not taking: Reported on 09/13/2023) cyclobenzaprine (FLEXERIL) 10 mg tablet Take 10 mg by mouth. carbidopa-levodopa (SINEMET) 25-100 mg per tablet Take 0.5 tablets by mouth three times a day for 7 days, THEN 1 tablet three times a day. Take at 7am, noon, and 5pm.. rOPINIRole (REQUIP) 0.25 mg tablet Reduce to 2 tablets, twice/day. After a week, reduce it to 1 tablet in morning and 2 tabs at night. After a week, reduce to only 2 tabs at night. After a week, reduce it to 1 tab at night. Continue on that dose thereafter. aspirin, enteric coated (ASPIR-LOW) 81 mg EC tablet Take 1 tablet by mouth once daily. pravastatin 20 mg tablet Take 20 mg by mouth once daily. lisinopril-hydrochlorothiazide 20-25 mg per tablet Take 1 tablet by mouth once daily. ALPRAZolam (XANAX) 1 mg tablet Take 1 mg by mouth at bedtime as needed. potassium chloride (KLOR-CON 10) 10 mEq tablet Take 20 mEq by mouth once daily. AMLODIPINE BESYLATE (AMLODIPINE ORAL) Take 10 mg by mouth once daily. Cholecalciferol, Vitamin D3, (D3 DOTS) 2,000 unit tab Take 2,000 Units by mouth once daily. MULTIVITAMIN (VITAMIN DAILY ORAL) Take by mouth once daily. No current facility-administered medications for this visit. Questionnaires: Assessment and Plan: Assessment Ms. Khan is a right-handed 78 year old female with Parkinson's Disease since 2014. She presents telephone visit- unable to connect to virtual visit. She has had improvement in motor symptoms with increased Sinemet. However, she is now experiencing dyskinesias. Discussed Amantadine including side effect profile to watch out for - changes in cognition, dizziness, livideo reticularis, hallucinations. Discussed plan with Dr. Valente. The following are the current problems noted and addressed during this visit: Parkinson's disease with dyskinesia and fluctuating manifestations (hcc) (primary encounter diagnosis) Plan 10/15/2023 Visit: Parkinson's Disease-Continue sinemet Start Amantadine 100 mg once daily Follow up with Dr. Valente in 3 months Updated Movement Disorder Medication Schedule: Medications breakfast lunch bedtime ropinerole 0.25mg 1 azilect 1mg 1 sinemet 25/100mg 1 1 1 amantadine 100 mg 1 Level of service : 86674 (20-29 min). Time spent 25 min on the day of service, which included preparing to see the patient, completing clinical documentation, obtaining and/or reviewing separately obtained history, counseling and educating the patient/family/caregiver, and ordering medications, tests, or procedures. Thank you for allowing me to be part of the clinical care of this patient! I look forward to continued participation in the patient s care with you. Please do not hesitate to call with any questions. Sincerely, Neelima Ortega APRN.[facility] documented in this encounter [facility] 10-17-2023 Miscellaneous Notes Addended by: NEELIMA ORTEGA on: 10/17/2023 05:29 PM Modules accepted: Orders Dear Neelima, If she lives alone, I'd prefer the zonisamide. If she lives with someone who can monitor for the possible cognitive side effects of amantadine, I'd prefer amantadine. Thanks! -David Patients daughter calling to say there was medication discussed during last OV for dyskinesia. They want to know what it was and if it can be prescribed because she's still having this issue. Kathie Calvillo (Daughter) [phone] (Home Phone) documented in this encounter [facility] 10-17-2023 Telephone encounter Note Spoke with pt. 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 She is agreeable to discussing in more detail at next office visit. [facility] 10-17-2023 Miscellaneous Notes Spoke with pt. 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 She is agreeable to discussing in more detail at next office visit. 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 We can discuss at her next in person visit and show her the images then. Thanks, -David Judith phoned for results of MRI done on 10/06. She does not use [facility] and would like a return call. [phone] documented in this encounter [facility] 10-17-2023 Telephone encounter Note Dear Team, Can we please let her know that the MRI of the spine showed arthritis-related degenerative changes to the spine, but not serious. We can discuss at her next in person visit and show her the images then. Thanks, -David [facility] 10-17-2023 Telephone encounter Note Judith phoned for results of MRI done on 10/06. She does not use [facility] and would like a return call. [phone] [facility] 10-17-2023 Telephone encounter Note Dear Neelima, If she lives alone, I'd prefer the zonisamide. If she lives with someone who can monitor for the possible cognitive side effects of amantadine, I'd prefer amantadine. Thanks! -David [facility] 10-09-2023 Telephone encounter Note Patients daughter calling to say there was medication discussed during last OV for dyskinesia. They want to know what it was and if it can be prescribed because she's still having this issue. Kathie Calvillo (Daughter) [phone] (Home Phone) [facility] 10-07-2023 History of Present illness Narrative Radiology Service Progress Note PATIENT NAME: Judith Khan DATE OF SERVICE: October 07, 2023 TIME: 5:53 PM PATIENT IDENTITY VERIFICATION COMPLETED USING TWO (2) IDENTIFIERS: Name and Date of confirmed by patient verbally and Name and Date of confirmed by identification band. FALL SCREENING: Has the patient had 2 falls in the last year or 1 fall with injury or currently using an Ambulatory Assistive Device (Walker, Cane, Wheelchair, Crutches, etc.)? No PATIENT GENDER DATA: Female. status: : No status: NO. PATIENT RELEVANT IMPLANT DATA REVIEWED: Yes PATIENT PRESENTS WITH AN IMPLANTABLE OR ATTACHED REPAIRER TYPEWRITER: No RADIOLOGY DEPARTMENT: MR; Exam(s) Completed: Spine: Cervical spine, Thoracic spine, and Lumbar spine PERIPHERAL IV DATA: Not applicable SIGNED BY: ЮЛИЯ Michael) October 07, 2023 5:53 PM documented in this encounter [facility] 10-07-2023 Note HNO ID: [id number] Author: MYA JENNINGS RT (R) Service: Radiology Author Type: Technologist Type: Progress Notes Filed: 10/07/2023 17:54 Note Text: Radiology Service Progress Note PATIENT NAME: Judith Khan DATE OF SERVICE: October 07, 2023 TIME: 5:53 PM PATIENT IDENTITY VERIFICATION COMPLETED USING TWO (2) IDENTIFIERS: Name and Date of confirmed by patient verbally and Name and Date of confirmed by identification band. FALL SCREENING: Has the patient had 2 falls in the last year or 1 fall with injury or currently using an Ambulatory Assistive Device (Walker, Cane, Wheelchair, Crutches, etc.)? No PATIENT GENDER DATA: Female. status: : No status: NO. PATIENT RELEVANT IMPLANT DATA REVIEWED: Yes PATIENT PRESENTS WITH AN IMPLANTABLE OR ATTACHED REPAIRER TYPEWRITER: No RADIOLOGY DEPARTMENT: MR; Exam(s) Completed: Spine: Cervical spine, Thoracic spine, and Lumbar spine PERIPHERAL IV DATA: Not applicable SIGNED BY: ЮЛИЯ Michael) October 07, 2023 5:53 PM [facility] 09-26-2023 Note Subjective Patient ID: Judith Khan is a 78 y.o. female who presents for Post-op (Judith is here today for a post op visit for an incisional hernia, s/p 09/17/23 DaVinci incisional hernia repair. ). HPI Review of Systems Constitutional: Negative. Respiratory: Negative. Cardiovascular: Negative. Gastrointestinal: Negative. Genitourinary: Negative. Neurological: Negative. Hematological: Bruises/bleeds easily. Objective Visit Vitals BP 130/68 (BP Location: Left arm, Patient Position: Sitting) Pulse 99 Temp 36.7 ???C (98 ???F) (Temporal) Physical Exam Assessment/Plan No diagnosis found. No orders of the defined types were placed in this encounter. No results found for this or any previous visit (from the past 36 hour(s)). No follow-ups on file. [facility] 09-26-2023 Note Subjective Patient ID: Judith Khan is a 78 y.o. female who presents for Post-op (Judith is here today for a post op visit for an incisional hernia, s/p 09/17/23 DaVinci incisional hernia repair. ). HPI Ms. Khan is a 78 year old female presenting today for follow up after recent robotic incisional hernia repair with mesh on 09/17/23. She reports to be doing well overall. She has had no pain at all at surgical site. She has been ambulatory but has not been lifting. She is tolerating a regular diet with no difficulty. Denies fever, chills, SOB, chest pain, nausea, vomiting, diarrhea or constipation. She did enquire about when to initiate PT. Review of Systems Constitutional: Negative. Respiratory: Negative. Cardiovascular: Negative. Gastrointestinal: Negative. Genitourinary: Negative. Neurological: Negative. Hematological: Bruises/bleeds easily. Objective Visit Vitals BP 130/68 (BP Location: Left arm, Patient Position: Sitting) Pulse 99 Temp 36.7 ???C (98 ???F) (Temporal) Physical Exam Constitutional: General: She is not in acute distress. Appearance: Normal appearance. She is normal weight. She is not ill-appearing, toxic-appearing or diaphoretic. HENT: Head: Normocephalic and atraumatic. Abdominal: General: Abdomen is flat. A surgical scar is present. There is no distension or abdominal bruit. There are no signs of injury. Palpations: There is no shifting dullness, fluid wave, hepatomegaly, splenomegaly, mass or pulsatile mass. Tenderness: There is no abdominal tenderness. Comments: Well healing surgical site with no erythema, edema, fluctuance or warmth Neurological: General: No focal deficit present. Mental Status: She is alert and oriented to person, place, and time. Mental status is at baseline. Psychiatric: Mood and Affect: Mood normal. Behavior: Behavior normal. Thought Content: Thought content normal. Judgment: Judgment normal. Assessment/Plan Ms. Khan is a 78 year old female presenting today for follow up after recent robotic incisional hernia repair with mesh on 09/17/23. She is doing very well overall. Robotic incisional hernia repair with mesh 09/17/23 - Okay to start PT, so long as avoid abdominal straining - Continue abdominal binder for 2 months - Does not need to be seen for follow up, unless patient desires Gamaliel Jarvis, MS3 [facility] 09/26/23 [facility] 09-18-2023 Note 09/18/23 1216 Home Oxygen Therapy Evaluation Pulse Oximetry on room air at Rest 88 Pulse Ox on O2 with nasal cannula while at rest 93 (on 3lpm via nasal cannula) Pulse Ox on O2 with nasal cannula while walking 92 (on 3lpm via nasal cannula while walking) Patient Qualification for home oxygen Qualifies $ Pulse Oximetry Multiple (home oxygen eval) [facility] 09-18-2023 Note ---- Attestation signed by Verena Sheehan MD at 09/20/2023 10:36 AM Attending Physician Statement I have discussed the case, including pertinent history and exam findings with Dr. Serrano, resident inspector and have personally seen the patient. I agree with the assessment, plan and orders as documented. [phone] pager [phone] phone ---- [facility] General Surgery DAILY PROGRESS NOTE Subjective Overnight patient had R sided weakness but patient has weakness at baseline. Evaluated by PA. Patient seen at bedside today. Says she's doing fine . Endorses adequate urination but denies having a BM since admission and is not passing gas. Denies fever/chills/N/V. Reports abdominal pain 3/10 in severity and mild SOB. Says she is tolerating diet. No complaints at this time. Objective Vitals: Vitals: 09/18/23 1110 BP: 134/67 Pulse: 103 Resp: 16 Temp: 36.7 ???C (98.1 ???F) SpO2: 94% I/O last 3 completed shifts: In: 2664.5 (42.4 mL/kg) [I.V.:1612.5 (25.7 mL/kg); IV Piggyback:1052] Out: 290 (4.6 mL/kg) [Urine:280 (0.1 mL/kg/hr); Blood:10] Weight: 62.8 kg I/O this shift: In: 340 [P.O.:340] Out: - Physical Exam General Appearance: Awake, Alert & Oriented x3, No Acute Distress Neck: Trachea Midline, No jugular venous distension Pulmonary: Unlabored breathing on 5L O2. No expiratory wheeze. Cardiac: Regular rate Abdomen: soft, non-distended, non-rigid, incisions clean dry and intact, abdominal soft with binder in place Extremity: No edema Bilateral Upper and lower Extremities Skin: warm and dry without rash Eyes: no scleral icterus Incisions: C/D/I no erythema or bleeding Labs: Results from last 7 days Lab Units 09/18/23 0407 09/18/23 0150 WBC AUTO 10*3/uL 6.97 6.49 HEMOGLOBIN g/dL 13.0 13.1 HEMATOCRIT % 40.5 39.7 PLATELETS AUTO 10*3/uL 309 301 Results from last 7 days Lab Units 09/18/23 0407 09/18/23 0150 SODIUM mmol/L 138 138 POTASSIUM mmol/L 4.5 4.2 CO2 mmol/L 25 26 BUN mg/dL 21 22 CREATININE mg/dL 0.93 0.96 Medications: acetaminophen, 1,000 mg, oral, q8h amLODIPine, 5 mg, oral, Daily docusate sodium, 100 mg, oral, BID gabapentin, 300 mg, oral, TID isosorbide mononitrate ER, 60 mg, oral, Daily Oxygen Therapy, , inhalation, Continuous pantoprazole, 40 mg, oral, Daily rasagiline, 1 mg, oral, Daily rOPINIRole, 0.5 mg, oral, TID lactated Ringer's, 30 mL/hr, Last Rate: Stopped (09/17/23 1437) Imaging: ECG 12 lead Sinus tachycardia Left ventricular hypertrophy with repolarization abnormality ( Sokolow-Migeul , Ish product ) Abnormal ECG No previous ECGs available Confirmed by Regis BALLARD, RICHARD Ervin ([id number]) on 09/18/2023 9:49:44 AM Assessment/Plan Judith Khan is a 78 y.o. female with PMH incisional hernia, hiatal hernia, HLD, HTN, UPJ, emphysema, and Parkinsons' disease who is POD #1 s/p Robotic incisional hernia repair with mesh. Regular diet Pain control Incentive spirometry Ambulate/OOB DVT ppx: SCD Rest of care per primary Lovenox Plan to Dc home today after PT/OT eval and home oxygen evaluation Zee Serrano MD General Surgery Resident, PGY-3 I can be reached via [employer] [id number] 09-18-2023 Note Physical Therapy Physical Therapy Evaluation Patient Name: Judith Khan : 1945 Today's Date: 09/18/2023 HX: 78 y/o female adm for hernia repair 09/17/23. Pt with Hx of Parkinsonism, COPD and TIA General Family/Caregiver Present: Yes (2 daughters) Subjective: Pt agreeable for pT eval, pt up inr ecliner with chair alarm set up (not activated due to family present, RN aware) and call light in reach. PT Diagnosis: impaired mobility s/p DaVinci hernia repair 09/17/23 Patient Active Problem List Diagnosis History of recurrent UTI (urinary tract infection) Hyperlipidemia Hypertension Pre-operative cardiovascular exam, new EKG abnormalities c/w ischemia Renal stone UPJ (ureteropelvic junction) obstruction Ureteral stricture Other fatigue H/O emphysema (CMS/HCC) Kidney disease Hiatal hernia Parkinson's disease (CMS/HCC) Incisional hernia, without obstruction or gangrene Postoperative incisional hernia Past Medical History: Diagnosis Date Chronic gastric ulcer without hemorrhage and without perforation COPD (chronic obstructive pulmonary disease) (CMS/HCC) Emphysema lung (CMS/HCC) HISTORY OF Hiatal hernia 05/2023 Hyperlipidemia Hypertension Parkinson disease (CMS/HCC) Renal stones TIA (transient ischemic attack) 06/2023 SYMPTOMS UPJ obstruction, acquired UTI (urinary tract infection) 06/2023 Past Surgical History: Procedure Laterality Date CARDIAC CATHETERIZATION FOOT SURGERY HYSTERECTOMY UPPER GASTROINTESTINAL ENDOSCOPY Precautions Precautions Medical Precautions: fall risk, lifting, oxygen, abdominal binder, telemetry (2LO2/ does not use home O2) Braces Applied: abdominal binder on throughout Pain Pain Assessment Pain Assessment: 0-10 Pain Score: 3 Pain Type: Surgical pain Pain Location: Abdomen Pain Descriptors: Aching Pain Frequency: Intermittent Pain Onset: Ongoing Clinical Progression: Not changed Pain Interventions: Ambulation/increased activity Response to Interventions: satisfied Cognition Cognition Overall Cognitive Status: Within Functional Limits Arousal/Alertness: Appropriate responses to stimuli Orientation Level: Oriented X4 Following Commands: Follows multistep commands with increased time Safety Judgment: Decreased awareness of need for assistance, Decreased awareness of need for safety Awareness of Errors: Assistance required to correct errors made, Assistance required to identify errors made Deficits: Decreased awareness of deficits Attention Span: Attends with cues to redirect Memory: Appears intact Problem Solving: Assistance required to implement solutions, Assistance required to generate solutions, Assistance required to identify errors made Communication: Intact Cognition Comments: note mild confusion with sequencing tasks, IE toileting General Assessment General Assessment Hearing: (wfl) Skin Integrity: abdominal binder over abdominal incisions, no OWEN drains Edema: L ankle> R, 2+ Tone: Tremors (BUE R>L, less so in LEs, clonus L ankle 2 beat) Hand Dominance: Right Home Living Home Living Type of Home: [place] Lives With: Daughter (daughter works, granddaughter assist during day as needed) Home Adaptive Equipment: Walker rolling, Cane (sc, gb hhs., rts) Home Layout: One level Home Access: Stairs to enter without rails (1) Entrance Stairs-Rails: None Entrance Stairs-Number of Steps: 1 Bathroom Shower/Tub: Walk-in shower Bathroom Toilet: Standard Bathroom Equipment: Grab bars in shower, Shower chair with back, Hand-held shower, Raised toilet seat without rails Prior Level of Function Prior Function Level of [place]: Independent with ADLs and functional transfers, Needs assistance with homemaking Prior Functional Mobility: Independent with rolling walker Receives Help From: Family ADL Assistance: Independent (assist for socks) Homemaking Assistance: Needs assistance Driving: Total Prior Function Comments: Currently getting [facility] therapies in [place]: [facility]/OT/PT Vision Basic Assessment Vision - Basic Assessment Current Vision: No visual deficits, Wears glasses all the time Activity Tolerance Activity Tolerance Endurance: Stage III Number of Rest Breaks: 2 Activity Tolerance Comments: pt on 2 liters 02 ~ 90-95% at rest. desat to 85% with 02 removed to walk to bathroom. O2 reapplied, RN aware General Assessments Sensation Light Touch: No apparent deficits Coordination Movements are Fluid and Coordinated: No Coordination and Movement Description: tremors and unsteadiness; unable to perform finger to nose without extra time and dysmetria. Heeel to avelar decreased Postural Control Posture Assessment: L thoracic scolosis Postural Control: (leans to L side) Righting Reactions: decreased Protective Responses: decreased Static Sitting Balance Static Sitting-Level of Assistance: Distant supervision Static (more content not included)... [facility] 09-18-2023 Note Occupational Therapy Occupational Therapy Evaluation Patient Name: Judith Khan : 1945 Today's Date: 09/18/2023 Time In: 946 Time Out: 1003 Judith Khan is a 78 y.o. female who presents for Post-op (Judith is here today for a post op visit for a hiatal hernia, s/p 08/13/[address] ). HPI 78 years old white female is visiting for epigastric pain and periumbilical abdominal wall bulging. She denies of nausea, vomiting. She is status post EGD. Date: 09/17/23 Procedure: DAVINCI INCISIONAL HERNIA REPAIR WITH MESH (Abdomen) General Subjective: friendly and cooperative, daughter and granddaughter present Patient Active Problem List Diagnosis History of recurrent UTI (urinary tract infection) Hyperlipidemia Hypertension Pre-operative cardiovascular exam, new EKG abnormalities c/w ischemia Renal stone UPJ (ureteropelvic junction) obstruction Ureteral stricture Other fatigue H/O emphysema (CMS/HCC) Kidney disease Hiatal hernia Parkinson's disease (CMS/HCC) Incisional hernia, without obstruction or gangrene Postoperative incisional hernia Past Medical History: Diagnosis Date Chronic gastric ulcer without hemorrhage and without perforation COPD (chronic obstructive pulmonary disease) (CMS/HCC) Emphysema lung (CMS/HCC) HISTORY OF Hiatal hernia 05/2023 Hyperlipidemia Hypertension Parkinson disease (CMS/HCC) Renal stones TIA (transient ischemic attack) 06/2023 SYMPTOMS UPJ obstruction, acquired UTI (urinary tract infection) 06/2023 Past Surgical History: Procedure Laterality Date CARDIAC CATHETERIZATION FOOT SURGERY HYSTERECTOMY UPPER GASTROINTESTINAL ENDOSCOPY Precautions Precautions Medical Precautions: fall risk, lifting, oxygen (2LO2/ does not use home O2) Pain Pain Assessment Pain Score: 0 - No pain Cognition Cognition Overall Cognitive Status: Within Functional Limits General Assessment General Assessment Hearing: (wfl) Tone: Tremors (BUE R>L) Hand Dominance: Right Home Living Home Living Type of Home: Condo Lives With: Daughter (daughter works, granddaughter assist during day as needed) Home Adaptive Equipment: Walker rolling, Cane (sc, gb hhs., rts) Home Layout: One level Home Access: Stairs to enter without rails (1) Bathroom Shower/Tub: Walk-in shower Prior Level of Function Prior Function Level of [place]: Independent with ADLs and functional transfers, Needs assistance with homemaking Prior Functional Mobility: Independent with rolling walker Prior IADLs IADL History Homemaking Responsibilities: Yes (simple home mgt) Dynamic Sitting Balance Dynamic Sitting Balance Dynamic Sitting Balance-Level of Assistance: Distant supervision Static Standing Balance Static Standing Balance Static Standing-Level of Assistance: Minimum assistance ADL ADL UE Dressing Assistance: Independent LE Dressing Assistance: Minimal Transfers Transfers Transfer: (in chair upon arrival ., SBA sit to stand, min A : 30 feet , SBA stand to sit into chair ., standing four minutes) Objective General Assessments Activity Tolerance Endurance: Stage II Vision - Basic Assessment Current Vision: No visual deficits Sensation Light Touch: No apparent deficits Coordination Movements are Fluid and Coordinated: No Coordination and Movement Description: (tremors / reports baseline) Extremity Assessments RUE Assessment RUE Assessment: (reports no issues with UB / MMT deferred) Outcome Assessments AM-PAC 6 Clicks Putting on and taking off regular lower body clothing?: A Little (Min Assist/Contact Guard/Supervision) Bathing(Including washing,rinsing,drying)?: A Little (Min Assist/Contact Guard/Supervision) Toileting, which includes using the toilet,bedpan,or urinal?: A Little (Min Assist/Contact Guard/Supervision) Putting on and taking off regular upper body clothing?: None (Independent) Taking care of personal grooming such as brushing teeth?: None (Independent) Eating meals?: None (Independent) Total Score OT [facility]: 21 Assessment/Plan OT Assessment OT Impairments: Decreased ADL status, Decreased endurance, Decreased functional mobility OT Assessment/ELECTRICAL TESTER Summary: (needs skilled OT due to weakness and fatigue) Prognosis: Good Evaluation/Treatment Tolerance: Patient limited by fatigue Medical Staff Made Aware: Yes OT Education/Comments: (LB adl and adl transfer safety/technique with good teach back) Plan Level of assist: 1 assist Treatment Interventions: ADL retraining, Functional transfer training, Endurance training, Patient/family training, Neuromuscular reeducation, Compensatory technique education OT Plan: Skilled OT OT Frequency: 5 times per week until discharge & PRN OT Discharge Recommendations: Home OT - Discharge Recommendations Placed: Yes OT Goals Multi-Disciplinary Problems (from Occupational Therapy) Active Probl (more content not included)... [facility] 09-18-2023 Note 09/18/23 1001 Admission Assessment Questions Verify insurance with patient Yes Do you understand medical disease or what brought you into the hospital? Yes Who is your current PCP? Kavon Sams MD Can I schedule a follow up appointment for you at the time of discharge? No Do you understand why you are taking your current medications? Yes Are you taking your medications as prescribed? Yes Did patient provide teach back? Yes Would you like use our pharmacy [facility] to fill your new medications at the time of Discharge? No Does the patient have a case fitter assigned to them through their insurance? No Living Arrangement (Current/Prior to Hospitalization) Private residence;Home self care (lives w/daughter. One story condo w/one step to enter) Does the patient have history of HHC or SNF? No Assistive Device Walker;Cane;Other (Comment);Raised toilet seat;Grab bars (shower chair) Patient's goal for discharge home Was patient reminded that goal for discharge is 11am? Yes Does the patient have transportation at discharge? Yes Type of Residence/Post Acute Needs Private residence Is PT/OT appropriate? Yes Is PT/OT ordered? Yes Is SW consult appropriate? No Is SW consult ordered? No Do you understand the benefits of MyChart? Yes Were you able to send link and activate MyChart? Yes [facility] 09-18-2023 Note [facility] General Surgery DAILY PROGRESS NOTE Subjective Overnight patient had R sided weakness but patient has weakness at baseline. Evaluated by PA. Patient seen at bedside today. Says she's doing fine . Endorses adequate urination but denies having a BM since admission and is not passing gas. Denies fever/chills/N/V. Reports abdominal pain 3/10 in severity and mild SOB. Says she is tolerating diet. No complaints at this time. Objective Vitals: Vitals: 09/18/23 0400 BP: 135/65 Pulse: 110 Resp: 14 Temp: 36.6 ???C (97.9 ???F) SpO2: 98% I/O last 3 completed shifts: In: 2664.5 (42.4 mL/kg) [I.V.:1612.5 (25.7 mL/kg); IV Piggyback:1052] Out: 290 (4.6 mL/kg) [Urine:280 (0.1 mL/kg/hr); Blood:10] Weight: 62.8 kg No intake/output data recorded. Physical Exam General Appearance: Awake, Alert & Oriented x3, No Acute Distress Neck: Trachea Midline, No jugular venous distension Pulmonary: Unlabored breathing on 5L O2. No expiratory wheeze. Cardiac: Regular rate Abdomen: soft, non-distended, non-rigid Extremity: No edema Bilateral Upper and lower Extremities Skin: warm and dry without rash Eyes: no scleral icterus Incisions: C/D/I no erythema or bleeding Labs: Results from last 7 days Lab Units 09/18/23 0407 09/18/23 0150 WBC AUTO 10*3/uL 6.97 6.49 HEMOGLOBIN g/dL 13.0 13.1 HEMATOCRIT % 40.5 39.7 PLATELETS AUTO 10*3/uL 309 301 Results from last 7 days Lab Units 09/18/23 0407 09/18/23 0150 SODIUM mmol/L 138 138 POTASSIUM mmol/L 4.5 4.2 CO2 mmol/L 25 26 BUN mg/dL 21 22 CREATININE mg/dL 0.93 0.96 Medications: acetaminophen, 1,000 mg, oral, q8h amLODIPine, 5 mg, oral, Daily docusate sodium, 100 mg, oral, BID gabapentin, 300 mg, oral, TID isosorbide mononitrate ER, 60 mg, oral, Daily Oxygen Therapy, , inhalation, Continuous pantoprazole, 40 mg, oral, Daily rasagiline, 1 mg, oral, Daily rOPINIRole, 0.5 mg, oral, TID lactated Ringer's, 30 mL/hr, Last Rate: Stopped (09/17/23 143) Imaging: ECG 12 lead Sinus tachycardia Left ventricular hypertrophy with repolarization abnormality ( Sokolow-Miguel , Ish product ) Abnormal ECG No previous ECGs available Assessment/Plan Judith Khan is a 78 y.o. female with PMH incisional hernia, hiatal hernia, HLD, HTN, UPJ, emphysema, and Parkinsons' disease who is POD #1 s/p incisional hernia repair with mesh. Doing well today, requiring 5L O2 via NC to maintain adequate oxygenation. Not yet ambulating. Pain control Incentive spirometry Ambulate/OOB DVT ppx: SCD Rest of care per primary Will follow David Conner, MS3 General Surgery Resident, PGY- [phone] I can be reached via [employer] [id number] [facility] 09-17-2023 Note Patient: Judith stoner Procedure Summary Date: 09/17/23 Room / Location: [facility] OPERATING ROOM 13 / [facility] Operating Room Anesthesia Start: 1039 Anesthesia Stop: 1436 Procedure: DAVINCI INCISIONAL HERNIA REPAIR WITH MESH (Abdomen) Diagnosis: Incisional hernia, without obstruction or gangrene (Incisional hernia, without obstruction or gangrene [K43.2]) Surgeons: Verena Sheehan MD Responsible Provider: Jon Sunshine MD Anesthesia Type: general ASA Status: 3 Anesthesia Type: general Vitals Value Taken Time BP 134/64 09/17/23 1518 Temp 36.2 09/17/23 1531 Pulse 90 09/17/23 1530 Resp 12 09/17/23 1530 SpO2 93 % 09/17/23 1530 Vitals shown include unvalidated device data. Anesthesia Post Evaluation Patient location during evaluation: PACU Patient participation: waiting for patient participation Level of consciousness: awake Pain score: 0 Pain management: adequate Airway patency: patent Cardiovascular status: stable Respiratory status: acceptable Hydration status: balanced Comments: Extubated in PARU at 15.25 pm . After T piece ventilation spontaneously for few minutes . Patient slow to emerge. No notable events documented. [facility] 09-17-2023 Note Patient: Judith stoner Procedure Summary Date: 09/17/23 Room / Location: [facility] OPERATING ROOM 13 / [facility] Operating Room Anesthesia Start: 1039 Anesthesia Stop: Procedure: DAVINCI INCISIONAL HERNIA REPAIR WITH MESH (Abdomen) Diagnosis: Incisional hernia, without obstruction or gangrene (Incisional hernia, without obstruction or gangrene [K43.2]) Surgeons: Verena Sheehan MD Responsible Provider: Jon Sunshine MD Anesthesia Type: general ASA Status: 3 Anesthesia Post Transport Note Transport to: PACU O2 Route: T-piece Oxygen Flow (L/min): 10 Patient Monitor: direct observation Transport: uneventful Patient condition is: stable [facility] 09-17-2023 Note Airway Date/Time: 09/17/2023 10:53 AM Urgency: elective General Information and Staff Patient location during procedure: OR Anesthesiologist: Jon Sunshine MD Resident/ENGINEER OPERATIONS AND MAINTENANCE/CAA: ABDIFATAH Patton Performed: resident/ENGINEER OPERATIONS AND MAINTENANCE/CAA Indications and Patient Condition Indications for airway management: anesthesia and airway protection Spontaneous Ventilation: absent Sedation level: deep Preoxygenated: yes Patient position: sniffing MILS not maintained throughout Mask difficulty assessment: 1 - vent by mask Final Airway Details Final airway type: endotracheal airway Successful airway: ETT Cuffed: yes Successful intubation technique: video laryngoscopy Facilitating devices/methods: intubating stylet Endotracheal tube insertion site: oral Blade: Reese Blade size: #3 ETT size (mm): 7.5 Cormack-Lehane Classification: grade I - full view of glottis Placement verified by: chest auscultation and capnometry Measured from: lips ETT to lips (cm): 21 Number of attempts at approach: 1 Number of other approaches attempted: 0 [facility] 09-17-2023 Note Patient: Judith stoner Procedure Information Date/Time: 09/17/23 1100 Procedure: REPAIR, HERNIA, INCISIONAL, DAVINCI - DaVinci Location: [facility] OPERATING ROOM 13 / [facility] Operating Room Surgeons: Verena Sheehan MD Relevant Problems Cardio (+) Hypertension GI (+) Hiatal hernia /Renal (+) Kidney disease (+) Renal stone (+) UPJ (ureteropelvic junction) obstruction Clinical information reviewed: Tobacco Allergies Meds Med Hx Surg Hx Fam Hx Physical Exam Airway Mallampati: II TM distance: >3 FB Neck ROM: full Cardiovascular - normal exam Rhythm: regular Rate: normal Dental (+) upper dentures, lower dentures Pulmonary Breath sounds clear to auscultation Abdominal Abdomen: soft Anesthesia Plan ASA 3 general Patient was not previously instructed to abstain from smoking on day of procedure. intravenous induction Postoperative administration of opioids is intended. Anesthetic plan and risks discussed with patient. Use of blood products discussed with who consented to blood products. Plan discussed with CAA. Additional Equipment Requests [facility] 09-13-2023 Instructions David Valente MD - 09/13/2023 10:41 AM EDT It was a pleasure to see you today. We addressed the following diagnoses: Hyperreflexia (primary encounter diagnosis) Spinal stenosis of cervical region Abnormal posture Spinal stenosis of lumbar region with neurogenic claudication Neuropathy Hypertension, unspecified type Degenerative myopia with other maculopathy, bilateral eye Parkinson's disease, unspecified whether dyskinesia present, unspecified whether manifestations fluctuate (hcc) My recommendations are as follows: 09/13/2023 Visit: Goal for cardiovascular exercise per week is 150 minutes total. Should be moderate or high intensity, fast enough so that it is hard to hold a conversation while you are doing it. Continue rasagiline for now. Restart sinemet at 0.5 tablets three times/day, 25/100, immediate release. After a week increase it to 1 tablet three times/day. Take at 7am, noon, and 5pm. At same time, reduce ropinerole. Reduce it to: 0.25mg, 2 tabs, twice/day for a week. Then, 0.25mg, 1 tab in morning and 2 tabs at night, for a week. Then, 0.25mg, 2 tabs at night, for a week. Then, 0.25mg, 1 tab at night. Continue on this dose thereafter. We will try to obtain MRI brain from 08/14/2023. MRI Cervical Spine for hyperreflexia workup MRI Thoracic Spine to assess for structural spine abnormalities to explain leftward tilt MRI Lumbar Spine, concern for right sided lumbar radiculopathy Ativan for MRI clautrophobia. Neuropathy labwork In future, consider EMG right leg to work up right > left sensory loss. Continue PT, OT, [facility] Follow up in 1 month with [facility]. Patient's perception of importance for healthcare provider to let them know of research trials for which they may be eligible? Not at all important Return at or around: 10/13/23 If there are any concerns before your next visit, please call or you can send a message through [employer]. You can also now schedule and select appointments through [employer]. David Valente MD documented in this encounter [facility] 09-13-2023 History of Present illness Narrative [facility] - NEW PATIENT EVALUATION thank you for referring Ms. Khan to our clinic today. As you know she is a 78 year old right-handed female who is seen in consultation for evaluation of parkinson disease since 2014. She is seen with a daughter. Subjective HISTORY OF PRESENT ILLNESS: Initial HPI Referral is for PD. Review of outside notes indicates she is on sinemet, gabapentin, flexeril, xanax, rasagiline, ropinerole. Per pt's daughter, hand tremor started in right hand around 2014. Per patient, the right hand tremor was equally there in action and in rest. She was referred to a neurologist. Of note she also has RLS, and was started on sinemet, in the . Then, end of 2022, the sinemet dose was increased, but it caused extra movements of her trunk, 1 tablet three times/day. Was taken off of sinemet, then was started on ropinerole, dose was increased to 0.25mg, 2 tabs TID. Not enough effect, so rasagiline was started 1mg daily, this year. The medicines help a little bit, she is still independent in her ADLs. Lip tremors started recently. Her balance is way off . She is in PT. Her has vision problems, but has macular degeneration. RBD: denies Constipation: denies Smell: it is intact. Memory: She has a mental fog. She does not forget to take her medicines, but sometimes say odd things in conversation that may not have actually happened. Started maybe in 2022. Hallucinations: denies She has MRI report with cortical atrophy with mod chronic microvasuclar ischemic changes , lacunar infarcts of both putamen, and possible additional infarct in left cerebellum. 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 even at low doses Prior Anti-Parkinson Therapies Carbidopa/Levodopa Rasagiline Ropinirole Questionnaires: In addition, the following areas that may be affected by abnormal involuntary movements were evaluated: Daily activities Difficulties with eating: Yes (mild) Difficulties in dressing: Yes (mild) Difficulties with hygiene activities: 0 (none) Difficulties with handwriting: Yes (slight) Difficulties with doing hobbies and other activities: 0 (none) Difficulties turning in bed: Yes (moderate) Difficulties getting out of bed, car or chair: Yes (moderate) Tremors/Gait/Balance Shaking or tremors: Yes (mild) Walking and balance problems: Yes (slight) Number of falls in the Last Month: 0 Gait freezin (none) Autonomic/Pain Lightheadeness on standin (none) Urinary problems: 0 (none) Constipation problems: 0 (none) Pain and other sensations: 0 (none) Speech/Swallowing Speech problems: 0 (none) Drooling: Yes (slight) Chewing and swallowing problems: 0 (none) Sleep/Fatigue Sleep problems: Yes (severe) Daytime sleepiness: Yes (mild) Fatigue: Yes (mild) Mood/Behavior Depression: PHQ-9 Score: 9 usually representing mild (5-9) depression. Anxiety: JONATHAN-7 Total Score: 1 usually representing no significant (0-4) anxiety. Finally, the following table shows the patient's overall global physical and mental health using the PROMIS scale: PROMIS-10 Flowsheet Row Office Visit from 09/13/2023 in [facility] Global Physical Health T Score 39.8 Global Mental Health T Score 56 0-10 Standard Pain Scale 3 *PROMIS-10 scoring scale: mean = 50, over 50 is above average, under 50 is below average Review of Systems Eyes: Positive for visual disturbance. All other systems reviewed and are negative. ALLERGIES Allergen Reactions Aleve [Naproxen Sod* Unknown Sulfa (Sulfonamide * Anaphylaxis Current Outpatient Medications Medication Sig gabapentin (NEURONTIN) 300 mg capsule TAKE 1 CAPSULE BY MOUTH ONCE DAILY X3DAYS, 1 CAPSULE TWICE DAILY X3DAYS THEN 1 CAPSULE 3 TIMES DAILY rasagiline (AZILECT) 1 mg tab Take by mouth. cyclobenzaprine (FLEXERIL) 10 mg tablet Take 10 mg by mouth. aspirin, enteric coated (ASPIR-LOW) 81 mg EC tablet Take 1 tablet by mouth once daily. pravastatin 20 mg tablet Take 20 mg by mouth once daily. lisinopril-hydrochlorothiazide 20-25 mg per tablet Take 1 tablet by mouth once daily. ALPRAZolam (XANAX) 1 mg tablet Take 1 mg by mouth at bedtime as needed. potassium chloride (KLOR-CON 10) 10 mEq tablet Take 20 mEq by mouth once daily. AMLODIPINE BESYLATE (AMLODIPINE ORAL) Take 10 mg by mouth once daily. Cholecalciferol, Vitamin D3, (D3 DOTS) 2,000 unit tab Take 2,000 Units by mouth once daily. MULTIVITAMIN (VITAMIN DAILY ORAL) Take by mouth once daily. KLOR-CON M20 20 mEq tablet Take 1 tablet by mouth every 12 hours. (Patient not taking: Reported on 09/13/2023) carbidopa-levodopa (SINEMET) 25-100 mg per tablet Take 0.5 tablets by mouth three times a day for 7 days, THEN 1 tablet three times a day. Take at 7am, noon, and 5pm.. rOPINIRole (REQUIP) 0.25 mg tablet Reduce to 2 tablets, twice/day. After a week, reduce it to 1 tablet in morning and 2 tabs at night. After a week, reduce to only 2 tabs at night. After a week, reduce it to 1 tab at night. Continue on that dose thereafter. metoprolol tartrate, short acting, 100 mg tablet Take 100 mg by mouth twice daily. FOLIC ACID ORAL Take 800 mg by mouth once daily. CALCIUM CARBONATE (CALCIUM 600 ORAL) Take by mouth twice daily. (Patient not taking: Reported on 09/13/2023) OMEGA-3 FATTY ACIDS/FISH OIL (OMEGA 3 FISH OIL ORAL) Take by mouth. OMEGA-3/DHA/EPA/FISH OIL (OMEGA-3 FISH OIL ORAL) Take 1,200 mg by mouth twice daily. No current facility-administered medications for this visit. Past Medical and Surgical History: has a past medical history of CAD (coronary artery disease) (07/12/2000), Exposure to pesticide, HTN (hypertension), biopsy, Hyperlipidemia, and Restless legs syndrome (RLS). Hiatal hernia, lumbar spondylosis, gastric ulcer, HTN, COPD, RLS, macular degeneration, scoliosis, xanax for insomnia, gabapentin and flexeril for pain (managed by pain management). has a past surgical history that includes hysterectomy hx; extensive foot surgery; and cardiac cath (08/02/2000). Social History Tobacco Use Smoking status: Former Packs/day: .5 Types: Cigarettes Start date: 07/02/1958 Quit date: 04/30/2019 Years since quittin.3 Smokeless tobacco: Never Vaping Use Vaping Use: Never used Substance Use Topics Alcohol use: No Drug use: No Family History: family history includes COPD in her paternal grandfather; Heart in her brother; Stroke in her brother and mother. Objective Vital Signs: BP 132/71 (BP Site: Right Arm, BP Position: Sitting, BP Cuff Size: Regular Adult) Pulse 85 Ht 167.6 cm (5' 6 ) Wt 55.8 kg (123 lb) SpO2 95% BMI 19.85 kg/m Weight: 55.8 kg (123 lb) Height: 167.6 cm (5' 6 ) No LMP recorded. Patient is postmenopausal. Body mass index is 19.85 kg/m . General Physical Examination: General: Awake, alert, interactive, no acute distress, good nutritional status, normal development, well-kept Extremities: 2+ pitting edema of feet. Heart: RRR normal S1S2 no MRG no carotid bruits General Neurological Examination: Neurological Exam Mental Status Awake and alert. Oriented only to person, place, time and situation. Recalls 3 of 3 objects immediately. At 3 minutes recalls 3 of 3 objects. no dysarthria present. Able to name objects, name parts of objects, repeat and read. Follows two-step commands. Difficulty spelling words backwards. Fund of knowledge is appropriate for level of education. She is 2 days off on the date.. Cranial Nerves CN II: Right visual acuity: Counts fingers. Left visual acuity: Counts fingers. Right normal visual field. Left normal visual field. CN III, IV, : Extraocular movements intact bilaterally. No nystagmus. Normal saccades. Normal smooth pursuit. Normal lids and orbits bilaterally. Pupils equal round and reactive to light bilaterally. CN V: Facial sensation is normal. CN VII: Full and symmetric facial movement. CN VIII: Hearing is normal. CN IX, X: Palate elevates symmetrically CN XI: Shoulder shrug strength is normal. CN XII: Tongue midline without atrophy or fasciculations. Motor Decreased muscle bulk throughout. Strength is 5/5 in all four extremities except as noted. Knee flex and extend are 4/5 bilaterally In hands, especially, there is muscle wasting. +temporal muscle wasting See UPDRS. Sensory Temperature abnormality: Intact at neck, impaired slightly at both hands, more impaired at both feet. Vibration abnormality: 40% at right foot, 100% at left foot. Reflexes Right Left Brachioradialis 2+ 3+ Biceps 2+ 3+ Triceps 2+ 3+ Patellar 3+ 3+ Achilles 2+ 2+ Right Plantar: mute Left Plantar: mute Right pathological reflexes: Db's present. Tromner present. Suprapatellar present. Crossed adductor absent. Left pathological reflexes: Db's present. Tromner present. Suprapatellar present. Crossed adductor absent. Coordination Right: [id number] normal.Left: [id number]-ia-[id number] normal. See UPDRS. Gait Casual gait: Hesitant and shuffling gait. Leftward body lean (left pisa syndrome) while sitting, and while standing. Freezing on gait initiation and turns, of left foot. Significant postural abnormality while walking. . Movement Disorders Scales Performed: MDS-UPDRS Motor subscale condition of exam Medication Off/On/Naiive ON Time of UPDRS 1009 Time of Last Medication 0615 Last Medication Taken ropinerole 0.25mg 2 tabs, and azilect 1mg DBS Right N/A DBS Left N/A MDS-UPDRS Motor subscale scores Speech 2-Mild. Loss of modulation, diction, or volume, with a few words unclear, but the overall sentences easy to follow. Facial Expression 3-Moderate. Masked facies with lips parted some of the time when the mouth is at rest. Rigidity Neck 2-Mild. Rigidity detected without the activation maneuver, but full range of motion is easily achieved. Rigidity Right Upper Extremity 0-Normal. No rigidity. Rigidity Left Upper Extremity 0-Normal. No rigidity. Rigidity Right Lower Extremity 0-Normal. No rigidity. Rigidity Left Lower Extremity 0-Normal. No rigidity. Finger Taps Right 1-Slight. a) the regular rhythm is broken with one or two interruptions or hesitations of the tapping movement, b) slight slowing, c) the amplitude decrements near the end of the 10 taps. Finger Taps Left 3-Moderate. a) more than 5 interruptions during tapping or at least one longer arrest (freeze) in ongoing movement, b) moderate slowing, c) the amplitude decrements starting after the 1st tap. Hand Movements Right 2-Mild. a) 3 to 5 interruptions during the movements, b) mild slowing, c) the amplitude decrements midway in the task. Hand Movements Left 2-Mild. a) 3 to 5 interruptions during the movements, b) mild slowing, c) the amplitude decrements midway in the task. Arm Movements Right 2-Mild. a) 3 to 5 interruptions during the movements, b) mild slowing, c) the amplitude decrements midway in the sequence. Arm Movements Left 3-Moderate. a) more than 5 interruptions during the movement or at least one longer arrest (freeze) in ongoing movement, b) moderate slowing, c) the amplitude decrements starting after the 1st supination-pronation sequence. Toe Taps Right 1-Slight. a) the regular rhythm is broken with one or two interruptions or hesitations of the tapping movement, b) slight slowing, c) the amplitude decrements near the end of the ten taps. Toe Taps Left 1-Slight. a) the regular rhythm is broken with one or two interruptions or hesitations of the tapping movement, b) slight slowing, c) the amplitude decrements near the end of the ten taps. Leg Agility Right 1-Slight. a) the regular rhythm is broken with one or two interruptions or hesitations of the movement, b) slight slowing, c) the amplitude decrements near the end of the task. Leg Agility Left 3-Moderate. a) more than 5 interruptions during the movement or at least one longer arrest (freeze) in ongoing movement, b) moderate slowing in speed, c) amplitude decrements after the first tap. Arise From Chair 3-Moderate. Needs to push off, but tends to fall back, or may have to try more than one time using arms of chair, but can get up without help. Gait 2-Mild. Independent walking but with substantial gait impairment. Gait Freezing 2-Mild. Freezes on starting, turning, or walking through doorway with more than one halt during any of these activities, but continues smoothly without freezing during straight walking. Posture Stability 3-Moderate. Stands safely, but with absence of postural response, falls if not caught by examiner. Posture 4-Severe. Flexion, scoliosis or leaning with extreme abnormality of posture. Body Bradykinesia 3-Moderate. Moderate global slowness and poverty of spontaneous movements. Postural Tremor Hand Right 2-Mild. Tremor is at least 1 but less than 3 cm in amplitude. (with delay) Postural Tremor Hand Left 1-Slight. Tremor is present but less than 1cm in amplitude. Kinetic Tremor Right 2-Mild. Tremor is at least 1 but less than 3 cm in amplitude. Kinetic Tremor Left 2-Mild. Tremor is at least 1 but less than 3 cm in amplitude. Rest Tremor Amplitude Right Upper Extremity 2-Mild. > 1 cm but < 3 cm in maximal amplitude. Rest Tremor Amplitude Left Upper Extremity 2-Mild. > 1 cm but < 3 cm in maximal amplitude. Rest Tremor Amplitude Right Lower Extremity 1-Slight. < 1 cm in maximal amplitude. Rest Tremor Amplitude Left Lower Extremity 1-Slight. < 1 cm in maximal amplitude. Rest Tremor Amplitude Lip/Jaw 1-Slight. < 1 cm in maximal amplitude. Rest Tremor Constancy 4-Severe. Tremor at rest is present > 75% of the entire examination period. MDS-UPDRS Motor subscale totals Left Total 18 Right Total 14 Midline Total 25 Tremor Total / 10 18 PIGD Total / 3 7 Overall Total 61 % Change Compared to Last Filed Total Assessment and Plan: Assessment Ms. Khan is a right-handed 78 year old year old female with Bradykinesia, tremors, and neck rigidity (no limb rigidity today), consistent with PD since 2014 (onset of right hand tremor). She subsequently developed gait impairment, freezing, and cognitive impairment since 2022 (she has trouble remembering her medical history). No RBD, no constipation. +hyperrefleixa +sensory changes in right leg. +dyskinesias on sinemet 1 tab TID reportedly, subsequently changed to ropinerole + azilect. She is currently, markedly, under-medicated, with UPDRS of 61. Will need to carefully get her back unto sinemet to improve motor symptoms, including freezing. Dyskinesias may be problem, she may need amantadine, or, slightly lower dose sinemet + zonisamide, or a long acting formulation of levodopa. She has hyperreflexia, concern for cervical stenosis, and right leg sensory changes, c/f lumbar radic that need to be worked up. The following are the current problems noted and addressed during this visit: Hyperreflexia (primary encounter diagnosis) Spinal stenosis of cervical region Abnormal posture Spinal stenosis of lumbar region with neurogenic claudication Neuropathy Hypertension, unspecified type Degenerative myopia with other maculopathy, bilateral eye Parkinson's disease, unspecified whether dyskinesia present, unspecified whether manifestations fluctuate (hcc) Memory changes Plan 09/13/2023 Visit: Goal for cardiovascular exercise per week is 150 minutes total. Should be moderate or high intensity, fast enough so that it is hard to hold a conversation while you are doing it. Continue rasagiline for now. Restart sinemet at 0.5 tablets three times/day, 25/100, immediate release. After a week increase it to 1 tablet three times/day. At same time, reduce ropinerole. Reduce it to: 0.25mg, 2 tabs, twice/day for a week. Then, 0.25mg, 1 tab in morning and 2 tabs at night, for a week. Then, 0.25mg, 2 tabs at night, for a week. Then, 0.25mg, 1 tab at night. Continue on this dose thereafter. We will try to obtain MRI brain from 08/14/2023. MRI Cervical Spine for hyperreflexia workup MRI Thoracic Spine to assess for structural spine abnormalities to explain leftward tilt MRI Lumbar Spine, concern for right sided lumbar radiculopathy Ativan for MRI claustrophobia planned (MRIs ordered at F, with radiology to administer anxiolytics) Neuropathy labwork In future, consider EMG right leg to work up right > left sensory loss. Continue PT, OT, [facility] Follow up in 1 month with [facility]. Patient's perception of importance for healthcare provider to let them know of research trials for which they may be eligible? Not at all important Updated Parkinson's Medication Schedule: Medications breakfast lunch bedtime ropinerole 0.25mg 1 azilect 1mg 1 sinemet 25/100mg 1 1 1 Level of service : 10836 + 1 units 12085 ( > 75 min, [id number] for each 15 min > 60 min). Time spent 80 min on the day of service, which included preparing to see the patient, [id number] patient care, completing clinical documentation, obtaining and/or reviewing separately obtained history, performing a medically appropriate examination, counseling and educating the patient/family/caregiver, and ordering medications, tests, or procedures. Thank you for allowing me to be part of the clinical care of this patient! I look forward to continued participation in the patient s care with you. Please do not hesitate to call with any questions. Sincerely, David Valente MD documented in this encounter [facility] 09-13-2023 Note HNO ID: [id number] Author: DAVID VALENTE MD Service: ? Author Type: Physician Type: Progress Notes Filed: 09/13/2023 21:36 Note Text: [facility] - NEW PATIENT EVALUATION thank you for referring Ms. Khan to our clinic today. As you know she is a 78 year old right-handed female who is seen in consultation for evaluation of parkinson disease since 2014. She is seen with a daughter. Subjective HISTORY OF PRESENT ILLNESS: Initial HPI Referral is for PD. Review of outside notes indicates she is on sinemet, gabapentin, flexeril, xanax, rasagiline, ropinerole. Per pt's daughter, hand tremor started in right hand around 2014. Per patient, the right hand tremor was equally there in action and in rest. She was referred to a neurologist. Of note she also has RLS, and was started on sinemet, in the . Then, end of 2022, the sinemet dose was increased, but it caused extra movements of her trunk, 1 tablet three times/day. Was taken off of sinemet, then was started on ropinerole, dose was increased to 0.25mg, 2 tabs TID. Not enough effect, so rasagiline was started 1mg daily, this year. The medicines help a little bit, she is still independent in her ADLs. Lip tremors started recently. Her balance is way off . She is in PT. Her has vision problems, but has macular degeneration. RBD: denies Constipation: denies Smell: it is intact. Memory: She has a mental fog. She does not forget to take her medicines, but sometimes say odd things in conversation that may not have actually happened. Started maybe in 2022. Hallucinations: denies She has MRI report with cortical atrophy with mod chronic microvasuclar ischemic changes , lacunar infarcts of both putamen, and possible additional infarct in left cerebellum. 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 even at low doses Prior Anti-Parkinson Therapies Carbidopa/Levodopa Rasagiline Ropinirole Questionnaires: In addition, the following areas that may be affected by abnormal involuntary movements were evaluated: Daily activities Difficulties with eating: Yes (mild) Difficulties in dressing: Yes (mild) Difficulties with hygiene activities: 0 (none) Difficulties with handwriting: Yes (slight) Difficulties with doing hobbies and other activities: 0 (none) Difficulties turning in bed: Yes (moderate) Difficulties getting out of bed, car or chair: Yes (moderate) Tremors/Gait/Balance Shaking or tremors: Yes (mild) Walking and balance problems: Yes (slight) Number of falls in the Last Month: 0 Gait freezin (none) Autonomic/Pain Lightheadeness on standin (none) Urinary problems: 0 (none) Constipation problems: 0 (none) Pain and other sensations: 0 (none) Speech/Swallowing Speech problems: 0 (none) Drooling: Yes (slight) Chewing and swallowing problems: 0 (none) Sleep/Fatigue Sleep problems: Yes (severe) Daytime sleepiness: Yes (mild) Fatigue: Yes (mild) Mood/Behavior Depression: PHQ-9 Score: 9 usually representing mild (5-9) depression. Anxiety: JONATHAN-7 Total Score: 1 usually representing no significant (0-4) anxiety. Finally, the following table shows the patient's overall global physical and mental health using the PROMIS scale: PROMIS-10 Flowsheet Row Office Visit from 09/13/2023 in [facility] Global Physical Health T Score 39.8 Global Mental Health T Score 56 0-10 Standard Pain Scale 3 *PROMIS-10 scoring scale: mean = 50, over 50 is above average, under 50 is below average Review of Systems Eyes: Positive for visual disturbance. All other systems reviewed and are negative. ALLERGIES Allergen Reactions Aleve [Naproxen Sod* Unknown Sulfa (Sulfonamide * Anaphylaxis Current Outpatient Medications Medication Sig gabapentin (NEURONTIN) 300 mg capsule TAKE 1 CAPSULE BY MOUTH ONCE DAILY X3DAYS, 1 CAPSULE TWICE DAILY X3DAYS THEN 1 CAPSULE 3 TIMES DAILY rasagiline (AZILECT) 1 mg tab Take by mouth. cyclobenzaprine (FLEXERIL) 10 mg tablet Take 10 mg by mouth. aspirin, enteric coated (ASPIR-LOW) 81 mg EC tablet Take 1 tablet by mouth once daily. pravastatin 20 mg tablet Take 20 mg by mouth once daily. lisinopril-hydrochlorothiazide 20-25 mg per tablet Take 1 tablet by mouth once daily. ALPRAZolam (XANAX) 1 mg tablet Take 1 mg by mouth at bedtime as needed. potassium chloride (KLOR-CON 10) 10 mEq tablet Take 20 mEq by mouth once daily. AMLODIPINE BESYLATE (AMLODIPINE ORAL) Take 10 mg by mouth once daily. Cholecalciferol, Vitamin D3, (D3 DOTS) 2,000 unit tab Take 2,000 Units by mouth once daily. MULTIVITAMIN (VITAMIN DAILY ORAL) Take by mouth once daily. KLOR-CON M20 20 mEq tablet Take 1 tablet by mouth every 12 hours. (Patient not taking: Reported on 09/13/2023) carbidopa-levodopa (SINEMET) 25-100 mg per tablet Take 0.5 tablets by mouth three times a day for 7 days, THEN 1 tablet three times a day. Take at 7am, noon, and 5pm.. rOPINIRole (REQUIP (more content not included)... [facility] 09-12-[address] Haresh nicole the Pantoprazole. [facility] 08-27-2023 Note Pre op Cardiovascula r risk stratification RCRI: 1 points Class II Risk 6.0 % 30-day risk of , ID, or cardiac arrest From a cardiology perspective pt may proceed with planned hernia surgery, she is low risk for a moderate- high risk abdominal surgery. Please monitor hemodynamics and prevent any major fluid shifts please. Mila Schultz [facility] Cardiology Available 7a-5pm via Epic Chat Pager [phone] 05/2022 Abnormal stress with EKG changes but no perfusion defects as per report. No cardiac complaints TTE 06/01/23 v [facility] 08-22-2023 Note Subjective Patient ID: Judith [...] time. (ESOPHAGOGASTRODUODENOSCOPY) Operative Note Date: 08/13/2023 Location: [facility] OR Name: Judith Khan, : 1945, Diagnosis Pre-op Diagnosis * Hiatal hernia [K44.9] Post-op Diagnosis * Chronic gastric ulcer without hemorrhage and without perforation [K25.7] Procedures EGD (ESOPHAGOGASTRODUODENOSCOPY) 53081 - [place] ESOPHAGOGASTRODUODENOSCOPY [facility] Surgeons * Verena Sheehan - Primary Procedure Summary Anesthesia: Monitor Anesthesia Care ASA: III Estimated Blood Loss: Minimal Total IV Fluids: 500 mL Drains: * None in log * Staff: [employer] Associate: Jian Kat RN Scrub Person: Eva Zambrano [...] NOTE Patient: Judith Khan : 1945 Facility: [facility] Referring/PCP: Kavon Sams MD Procedure: Esophagogastroduodenoscopy [...] 1. -Follow up with me. 2. -PPIs [phone] pager [phone] Assessment/Plan Incisional hernia Gastric ulcer Robotic incisional hernia repair with mesh Cardiac clearance PPIs No diagnosis found. No orders of the defined types were placed in this encounter. No results found for this or any previous visit (from the past 36 hour(s)). No follow-ups on file. [facility] 08-13-2023 Note Patient: Judith stoner Procedure Summary Date: 08/13/23 Room / Location: [facility] OPERATING ROOM 01 / [facility] Operating Room Anesthesia Start: 731 Anesthesia [...] per anesthesia protocol. No notable events documented. [facility] 08-13-2023 Note [facility] General Surgery HISTORY AND PHYSICAL Reason for Admission: EGD History of Present Illness: Judith Khan is a 78 y.o. female with a hiatal hernia. Here today for elective EGD. No changes since prior exam no new acute concerns. Past Medical History: Diagnosis Date COPD (chronic obstructive pulmonary disease) ([facility]) Emphysema lung ([facility]) HISTORY OF Hiatal hernia 05/2023 Hyperlipidemia Hypertension [...] PROTIME Imaging: XR chest 1 view Narrative: [facility] Department of Radiology [address] [place] [id number] Patient Name: JUDITH KHAN : 1945 Sex: F Age: Race: White^White Pt. Location: [id number] Patient Status: I Ordered Date: 08/15/2017 7:05:00 AM Completed Date: 08/15/2017 07:54 AM Requesting Provider: JOSH PALMER Attending Provider: ALEXANDER OLSON Report Copy To: Signs & Symptoms: O2 Desaturation History: Patient history not available Comments: R/O Effusion Exam: PORTABLE CHEST 1 VIEW PORTABLE CHEST 1 VIEW 08/15/2017 7:54 AM EST SIGNS AND SYMPTOMS: O2 Desaturation TECHNOLOGIST COMMENTS: SOB Q (more content not included)... [facility] 08-13-2023 Note Patient: Judith stoner Procedure Information Date/Time: 08/13/23729 Procedure: EGD (ESOPHAGOGASTRODUODENOSCOPY) Location: [facility] OPERATING ROOM 01 / [facility] Operating Room Surgeons: Verena Sheehan MD [...] with attending and resident. Additional Equipment Requests [facility] 08-08-2023 Note PRE OP INSTRUCTIONS REVIEWED WITH KALEN TRIPATHI MEDIATIONS TO HOLD PRIOR TO PROCEDURE DATE 3/4 MEDICATIONS TO TAKE DAY OF SURGERY WITH SIP OF WATER XANAX AMLODIPINE ISOSORBIDE GABAPENTIN IF YOU ARE GOING HOME AFTER YOUR SURGERY OR PROCEDURE, FOR YOUR SAFETY, YOUR SURGERY WILL BE CANCELLED IF BOTH OF THE FOLLOWING ARE NOT AVAILABLE: An adult route driver over the age of 18, 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 Do not wear perfume, make-up, nail bhutanese, or lotions on the day of your [...] need to make any changes, please call [phone]. Notify your surgeon if you develop any illness such as a cold, cough, fever, sore throat or vomiting between now and your surgery. Thank you for entrusting us with your care. [facility] Surgical Services Team [facility] 08-07-2023 Note Subjective Patient ID: Judith Khan [...] past 36 hour(s)). No follow-ups on file. [facility] 07-16-2023 Hospital Discharge instructions Patient Education 07/16/2023 15:44:31 Weakness Weakness Weakness is a lack of strength. You may feel weak all over your body (generalized), or you may feel weak in one part of your body (focal). Common causes of weakness include: Infection and disorders of the body's defense system (immune system). Physical exhaustion. Internal bleeding or other blood loss that results in a lack of red blood cells (anemia). Dehydration. An imbalance in mineral (electrolyte) levels, such as potassium. Chronic kidney or liver disease. Cancer. Other causes include: Some medicines or cancer treatment. Stress, anxiety, or depression. Heart disease, circulation problems, or stroke. Nervous system disorders. Thyroid disorders. Loss of muscle strength because of age or inactivity. Poor sleep quality or sleep disorders. The cause of your weakness may not be known. Some causes of weakness can be serious, so it is important to see your health care provider. Follow these instructions at home: Activity Rest as needed. Try to get enough sleep. Most adults need 7 8 hours of quality sleep each night. Talk to your health care provider about how much sleep you need. Do exercises, such as arm curls and leg raises, for 30 minutes at least 2 days a week or as told by your health care provider. This helps build muscle strength. Consider working with a physical therapist or net trainer who can develop an exercise plan to help you gain muscle strength. General instructions Take uzcn-lxs-nwyohaw and prescription medicines only as told by your health care provider. Eat a healthy, well-balanced diet. This includes: ?Proteins to build muscles, such as lean meats and fish. ?Fresh fruits and vegetables. ?Carbohydrates to boost energy, such as whole grains. Drink enough fluid to keep your urine pale yellow. Keep all follow-up visits. This is important. Contact a health care provider if: Your weakness does not improve or gets worse. Your weakness affects your ability to think clearly. Your weakness affects your ability to do your normal daily activities. Get help right away if: You develop sudden weakness, especially on one side of your face or body. You have chest pain. You have trouble breathing or shortness of breath. You have problems with your vision. You have trouble talking or swallowing. You have trouble standing or walking. You are light-headed or lose consciousness. These symptoms may be an emergency. Get help right away. Call 911. Do not wait to see if the symptoms will go away. Do not drive yourself to the hospital. Summary Weakness is a lack of strength. You may feel weak all over your body or just in one specific part of your body. Weakness can be caused by a variety of things. In some cases, the cause may be unknown. Rest as needed, and try to get enough sleep. Most adults need 7 8 hours of quality sleep each night. Eat a healthy, well-balanced diet. This information is not intended to replace advice given to you by your health care provider. Make sure you discuss any questions you have with your health care provider. Document Revised: 04/30/2022 Document Reviewed: 04/30/2022 exsulin Patient Education 2022 [employer]. Follow Up Care 07/16/2023 11:34:57 With:Kavon Sams Address: [address] [place] [address] [address] [place] [address] Business (1) When:07/19/2023 15:32:04 [facility] 07-16-2023 Evaluation + Plan note Extrac ej from: Title:ED Note Author:Dom SZYMANSKI, Leighton Jennings te:07/16/23 Weakness (R53.1: Weakness) Diagnostic Tests Pending * Urine Culture 07/16/23 [facility]01-28-2024 NoteAdmission and Discharge Information Admitting Physician - Kylie HERRERA, Mela Consulting Physician - Dani HERRERA, Ramiro Admitting Diagnoses: Discharge Diagnoses 1. Right sided [...] JOANNA Kauffman Within 1 to 2 weeks [facility] [place] [address]- Additional Instructions: Patient Education Weakness, Acns-dy-Zydt Urinary Tract Infection, [facility] HospitalComment on above:Result Comment: Electronically Signed By: MATTHEW HERRERA, Haile\.br\Date and Time Signed: 07/08/23 16:[id number] NoteHypertension is stable and well controlled Continue all meds as prescribed- norvasc, lisinopril- hydrochlorothiazide, metoprololT[facility]carawas [facility]01-26-2024 NoteHiatal hernia with compression on Lt atrium noted on TTE Referral to general surgery orderedUnMercy Health [facility] NotePatient here for 6 mo follow up fatigue, hypertension, and hyperlipidemia. Metoprolol was put on hold at last apt in Jan 2023 to see if fatigue improved. A few weeks later she was admitted to [facility] for chest pain. Had another echo in May 2023, which showed hiatal hernia. Daughter states was admitted to [facility] recently for TIA symptoms and daughter states she was treated for UTI. She's still not taking metoprolol and feels less tired without it. She denies chest pain, SOB, lightheadedness/syncope, and palpitations. Review of Systems Constitutional: Positive for malaise/fatigue (improving). Musculoskeletal: Positive for arthritis, back pain and joint pain. Neurological: Positive for tremors. All other systems reviewed and are negative.[facility] 07-06-2023 NoteUTP CARDIOLOGY PROGRESS NOTE HPI: Judith Khan is a 78 y.o. female here for review echocardiogram Patient here for 6 mo follow up fatigue, hypertension, and hyperlipidemia. Metoprolol was put on hold at last apt in Jan 2023 to see if fatigue improved. A few weeks later she was admitted to [facility] for chest pain. Had another echo in May 2023, which showed hiatal hernia. Daughter states was admitted to [facility] recently for TIA symptoms and daughter [...] the morning. cholecalciferol (Vitamin D-3) 50 MCG (1999) tablet Take 2,000 Units by mouth in [...] Plt Count 355 (150-450) 10^3/uL Emergency Department [id number] [facility] 5 Patient name: JUDITH KHAN MPV 11.2 (9.5-13.5) fL Neut % (Auto) 22.9 L (43.0-75.0) % Lymph % (Auto) 55.8 (20.5-60.0) % Rowan % (Auto) 13.5 H (1.7-12.0) % Eos % (Auto) 6.4 (0.9-7.0) % Baso % (Auto) 1.3 (0.2-2.0) % Neut # (Auto) 1.9 (1.4-6.5) 10^3/uL Lymph # (Auto) 4.6 H (1.2-3.8) 10^3/uL Rowan # (Auto) 1.1 H (0.3-0.8) 10^3/uL Eos [...] Amer) >60 (>=60) Est (more content not included)...[facility]01-20-2024 NoteMicrobiology PROCEDURE: Blood Culture Charcoal [R1] SOURCE: Blood BODY SITE: Arm L COLLECTED DATE/TIME: 06/23/2023 01:59 EST RECEIVED DATE/TIME: 06/23/2023 02:53 EST START DATE/TIME: 06/23/2023 02:53 EST FREE TEXT SOURCE: Thea Stacy, Augie Sidhu M.D., Augie Charlton FINAL REPORTS Final Report [] Verified Date/Time: 06/30/2023 07:00 EST No growth at 7 days. Performing Locations R1: This test was performed at: [facility], [address] [place] [address], [address] [place], [place] [address]Comment on above:Performed By: #### [id number] ####[address] [id number] NoteMicrobiology PROCEDURE: Blood Culture Charcoal [R1] SOURCE: Blood BODY SITE: Arm R COLLECTED DATE/TIME: 06/23/2023 02:56 EST RECEIVED DATE/TIME: 06/23/2023 05:50 EST START DATE/TIME: 06/23/2023 05:50 EST FREE TEXT SOURCE: rt nathaniel Sidhu M.D., Augie Sidhu M.D., Augie Charlton FINAL REPORTS Final Report [] Verified Date/Time: 06/30/2023 07:00 EST No growth at 7 days. Performing Locations R1: This test was performed at: [facility], [address] [place] [address], [address] [place], [place] [address]Comment on above:Performed By: #### [id number], [id number] #### [address] [id number] NoteChief Complaint weakness Reason for Consultation Right sided weakness History of Present Illness 78-year-old woman with Parkinson's who follows with Dr. Rao and Yamilka Gill in the [facility]. She had a unilateral upper extremity resting tremor for several years but was only diagnosed maybea year or year and a half ago [...] upper extremity is fairly high amplitude and shehas some head tremor as well. She says after bad days of tremulousness she can have a sore right arm. She has experienced mild freezing episodes. She feels very slow overall. She also reportedly has right-sided weakness even on a good day, which she has attributed to her Parkinson's. The right sideof her face appears mildly droopy as well. To rule out other causes such as stroke, she says she had an open MRI in [place] within the past few months which she is told was unremarkable. Before coming to the hospital she had sat down on the toilet and then found herself unable to get up. It was like her legs would not work. She has the baseline right lower extremity weakness but felther left was weak as well. It did [...] vision. No dysphagia. No speech changes. No focalweakness. No sensory loss. Physical Exam Vitals & [...] weakness compared to the left. Moderate to severeresting tremors, right upper extremity predominant, also involving [...] but reportedly she has MRI images in [place] within the past few months that did [...] this continues to happen to her; I warnedher about the potential side effects and she [...] List/Past Medical History On (more content not included)...[facility]ighComment on above: Result Comment: Electronically Signed By: Tony Fuentes DO\Date and Time Signed: 06/24/23 09:29 [id number] Hospital Discharge instructions Patient Education 06/23/2023 16:31:59 Weakness, Pwqq-zg-Jyzg Weakness Weakness is a lack of strength. You may feel weak all over your body (generalized), or you may feelweak in one part of your body (focal). [...] 2 days a week or as told byyour doctor. Think about working with a physical therapist or net trainer to help you get stronger. General instructions Take nosm-pzr-jydiupc and prescription medicines only as told by [...] provider. Document Revised: 04/30/2022 Document Reviewed: 04/30/2022 exsulin Patient Education 2022 [employer]. 06/23/2023 16:31:55 Urinary Tract Infection, Adult Urinary Tract Infection, Adult A urinary tract infection (UTI) is an infection of any part of the urinary tract. The urinary tractincludes the kidneys, ureters, bladder, and urethra. These organs make, store, and get rid of urinein the body. An upper UTI affects the [...] Treatment for this condition includes: Antibiotic medicine. Xjai-qkh-csgatni medicines to treat discomfort. Drinking enough water to stay hydrated. If you have frequent infections or have other conditions such as a kidney stone, you may need to see a health care provider who specializes in the urinary tract (urologist). In rare cases, urinary tract infections can cause sepsis. Sepsis is a life- threatening condition that occurs when the body responds to an infection. Sepsis is treated in the hospital with IV antibiotics, fluids, and other medicines. Follow these instructions at home: Medicines Take mmmm-did-bbjiwue and prescription medicines only as told by your health care provider. If you were prescribed an antibiotic medicine, take it as told by your health care provider. Do notstop using the antibiotic even if you start [...] told by your health care provider. Do notstop using the antibiotic even if you start to feel better. Keep all follow-up visits. This is important. This information is not intended to replace advice given to you by your health care provider. Make sure you discuss any questions you have with your health care provider. Document Revised: 01/07/2021 Document Reviewed: 01/07/2021 exsulin Patient Education 2022 [employer]. Follow Up Care 06/23/2023 01:35:45 With:Dani HERRERA, JOANNA Kauffman Address: [place] [address] [place] [id number]- When:1 to 2 weeks [facility]01-13-2024 NoteChief Complaint states went to the bathroom and [...] out of bed to go the bathroom. Isabella weak all over and just felt like [...] at 2100 last evening. Yesterday her appetite waspoor and she did not eat much. No [...] confusion, + weakness in RLE and RUE comparedto left, + facial droop noted, Significant tremor [...] 01:55:00) Lymph Auto: 15.1 % (06/23/23 01:55:00) Rowan Auto: 11.3 % (06/23/23 01:55:00) Eos Auto: 0.8 % (06/23/23 01:55:00) Basophil Auto: 0.4 % (06/23/23 01:55:00) Neutro Absolute: 10.5 E9/L High (06/23/23 01:55:00) Lymph Absolute: 2.2 E9/L (06/23/23 01:55:00) Rowan Absolute: 1.6 E9/L High (06/23/23 01:55:00) Eos [...] Magnesium: 1.8 mg/dL (06/23/23 (more content not included)...[facility] GlenbeighComment on above:Result Comment: Electronically Signed By: MATTHEW HERRERA, Haile\.br\Date and Time Signed: 06/23/23 15:[id number] NoteCRM entered the room to discuss dc planning. PCP, DME and insurance discussed. Patient is alert andinvolved in plan of care. Contact information provided and whiteboard updated. PT rec OPPT, pt is agreeable. Medicare Rights form discussed. Copy provided. Pt's family will transport. Ant dc 06/23 or 06/24. CRM to follow.[facility]ighComment on above:Result Comment: Electronically Signed By: Haydee Melendez\Date and Time Signed: 06/23/23 14:05 [id number] Evaluation + Plan noteExtracted from: Title:Consult Note Neurology Author:Christi Hamm LPN, [...] but reportedly she has MRI images in [place] within the past few months that did [...] just had an MRI in May at [facility]. Consult Neurology PT Eval ordered 2. [...] passed speech eval Extracted from: Title:ED Note Author:Augie Sidhu M.D. te:06/23/23 1. Weakness (R53.1: Weakness ) 2. [...] Blood Culture Charcoal CBC w/ Auto Diff [place] Stroke Scale Communication Order Physician to Nursing Continuous Pulse Oximetry CT Head or Brain w/o Contrast ECG 12 Lead Adult ED Cardiac Monitoring ED Physician consult Hospitalist for continued care eGFR Hepatic Function Panel Lactic Acid Magnesium Level NPO Diet Oxygen Therapy PT & PTT Rapid COVID Antigen ([facility]) Routine Capillary Glucose POC Saline Lock Insert Stroke Quality Measures Troponin 0 Hr. Troponin 3 Hr. Troponin 6 Hr. Troponin 9 Hr. TSH With T4fr Reflex UA With Cult Reflex Urine Culture Vital Signs XR Chest Single View Diagnostic Tests Pending * Blood Culture Charcoal 06/23/23 * Blood Culture Charcoal 06/23/23 * Urine Culture 06/23/23 [facility]01-13-2024 NotePT Evaluation done this date. Pt. with on AM-PAC this date. She feels she is at her baseline at this time, Recommend she uses her FWW at home as needed. She may benefit from outpatient PT for her Parkinson's. No further acute PT needs.[facility] 01-12-20[address] [facility]08-04-2023 Note Hypertension is elevated in office most likely r/t white coat syndrome States b/p at home is typically 120's/70'[facility] 01-12-2023 NoteWill have pt hold metoprolol and see if her fatigue improves Continue to monitor b/p at home and call office for b/p increase greater than 130/80 or for any concerns.[facility]08-04-2023 Note Patient here for 6 mo [...] tremors. All other systems reviewed and are negative.[facility] 01-12-2023 NoteUTP CARDIOLOGY PROGRESS NOTE HPI: [...] statin RTC 3-6 months or earlier if neededTuscarawas HospitalEvaluation noteNo assessment information availableSheltering Arms Hospital Ctr Work Phone: Evaluation note* Diagnosis Hyperreflexia- Primary Abnormal reflex Spinal stenosis of cervical region Spinal stenosis in cervical region Abnormal posture Spinal stenosis of lumbar region with neurogenic claudication Spinal stenosis, lumbar region, with neurogenic claudication Neuropathy Mononeuritis of unspecified site Hypertension, unspecified type Degenerative myopia with other maculopathy, bilateral eye Parkinson's disease, unspecified whether dyskinesia present, unspecified whether manifestations fluctuate (HCC) Memory changes Memory loss [facility] Diagnosis Spinal stenosis of cervical region Spinal stenosis in cervical region [facility]* Diagnosis Abnormal posture [facility]* Diagnosis Spinal stenosis of lumbar region with neurogenic claudication Spinal stenosis, lumbar region, with neurogenic claudication [facility]* Diagnosis Parkinson's disease with dyskinesia and fluctuating manifestations (HCC)- Primary [facility]* Diagnosis Parkinson's disease with dyskinesia and fluctuating manifestations (HCC)- Primary [facility]* Diagnosis Parkinson's disease with dyskinesia and fluctuating manifestations (HCC) documented [facility] this encounter [facility]* Diagnosis Parkinson's disease with dyskinesia and fluctuating manifestations (HCC) [facility]* Diagnosis Parkinson's disease with dyskinesia and fluctuating manifestations (HCC)- Primary documented in [facility] encounter [facility]* Diagnosis Parkinson's disease with dyskinesia and fluctuating manifestations (HCC)- Primary documented in this encounter [facility]* Diagnosis Parkinson's disease with dyskinesia and fluctuating manifestations (HCC) documented in this encounter [facility] course Narrative No data available for this section [facility] No data available for this section [facility] Summary Purpose Family History No Family History [...] Reason for Visit Chief Complaint G24.9 R27.0 Reason for Referral Specialty Diagnoses / Procedures Referred By Reyna medina Referred To Contact Diagnoses Parkinson's disease with dyskinesia and fluctuating manifestations (HCC) Procedures PROVIDER ORDERED FOLLOW UP OFFICE/OUTPATIENT [facility] 60 MINUTES Mariola Montes PA-C [address] [place] [address] Referral ID Status Reason Start Date Expiration Date Visits Requested Visits Authorized [id number] Authorized PCP Requested Referral 02/14/2024 01/13/2025 1 1 Specialty Diagnoses / Procedures Referred By Contac t Referred To Contact Diagnoses Parkinson's disease, unspecified whether dyskinesia present, unspecified whether manifestations fluctuate (HCC) Procedures PROVIDER ORDERED FOLLOW UP OFFICE/OUTPATIENT [facility] 60 MINUTES David Valente MD [address] [place] [address] Referral ID Status Reason Start Date Expiration Date Visits Requested Visits Authorized [id number] Authorized PCP Requested Referral 10/13/2023 09/12/2024 1 1 Specialty Diagnoses / Procedures Referred By Contac t Referred To Contact MR IMAGING Diagnoses Spinal stenosis of lumbar region with neurogenic claudication Procedures MRI LUMBAR SPINE WO IVCON MRI SPINAL CANAL LUMBAR W/O CONTRAST MATERIAL David Valente MD [address] [place] [address] Mr Imaging [place] [address] Referral ID Status Reason Start Date Expiration Date Visits Requested Visits Authorized [id number] Authorized Auto-Generat ed Referral 09/13/2023 10/12/2024 1 1 Specialty Diagnoses / Procedures Referred By Contac t Referred To Contact MR IMAGING Diagnoses Abnormal posture Procedures MRI THORACIC SPINE WO IVCON MRI SPINAL CANAL THORACIC W/O CONTRAST David Andrea MD [address] [place] [address] Mr Imaging [place] [address] Referral ID Status Reason Start Date Expiration Date Visits Requested Visits Authorized [id number] Authorized Auto-Generat ed Referral 09/13/2023 10/12/2024 1 1 Specialty Diagnoses / Procedures Referred By Contac t Referred To Contact MR IMAGING Diagnoses Spinal stenosis of cervical region Procedures MRI CERVICAL SPINE WO IVCON MRI SPINAL CANAL CERVICAL W/O CONTRAST David Andrea MD [address] [place] [address] Mr Imaging [facility] Referral ID Status Reason Start Date Expiration Date Visits Requested Visits Authorized [id number] Authorized Auto-Generat ed Referral 09/13/2023 10/12/2024 1 1 Additional Source Comments INFORMATION SOURCE (unrecogn ized section and content) DATE CREATED AUTHOR 11/30/2017 [facility] DATE CREATED AUTHOR AUTHOR'S ORGANIZ ATION 10/13/2022 [facility] DATE CREATED AUTHOR AUTHOR'S ORGANIZ ATION 07/19/2023 [facility] DATE CREATED AUTHOR AUTHOR'S ORGANIZ ATION 08/21/2023 [facility] DATE CREATED AUTHOR AUTHOR'S ORGANIZ ATION 10/19/2023 [facility] DATE CREATED AUTHOR AUTHOR'S ORGANIZ ATION 10/30/2023 [facility] DATE CREATED AUTHOR AUTHOR'S ORGANIZ ATION 12/02/2023 [facility] DATE CREATED AUTHOR AUTHOR'S ORGANIZ ATION 12/26/2023 [facility] DATE CREATED AUTHOR AUTHOR'S ORGANIZ ATION 02/27/2024 [facility] Care Teams (unrecognized sec tion and content) Team Status: Active Member Role Status Dates Kavon Sams MD Primary Care Provider Active Team Status: Inactive Member Role Status Dates Kavon Sams MD Primary Care Provider Active DIXIE Eng Attending Provider Active Low Pressure Boiler Operator Relationship Specialty Start Date End Date Kavon Sams Md PCP - General Family Medicine 03/23/20 Kavon Sams MD Physician Family Medicine 02/20/20 [employer] Pressure Boiler Operator Relationship Specialty Start Date End Date Kavon Sams Md PCP - General Family Medicine 03/23/20 Kavon Sams MD Physician Family Medicine 02/20/20 Low Pressure Boiler Operator Relationship Specialty Start Date End Date Kavon Sams Md PCP - General Family Medicine 03/23/20 Kavon Sams MD Physician Family Medicine 02/20/20 Low Pressure Boiler Operator Relationship Specialty Start Date End Date Kavon Sams Md PCP - General Family Medicine 03/23/20 Kavon Sams MD Physician Family Medicine 02/20/20 Low Pressure Boiler Operator Relationship Specialty Start Date End Date Kavon Sams Md PCP - General Family Medicine 03/23/20 Kavon Sams MD Physician Family Medicine 02/20/20 Low Pressure Boiler Operator Relationship Specialty Start Date End Date Kavon Sams Md PCP - General Family Medicine 03/23/20 Kavon Sams MD Physician Family Medicine 02/20/20 Low Pressure Boiler Operator Relationship Specialty Start Date End Date Kavon Sams Md PCP - General Family Medicine 03/23/20 Kavon Sams MD Physician Family Medicine 02/20/20 Low Pressure Boiler Operator Relationship Specialty Start Date End Date Kavon Sams Md PCP - General Family Medicine 03/23/20 Kavon Sams MD Physician Family Medicine 02/20/20 Low Pressure Boiler Operator Relationship Specialty Start Date End Date Kavon Sams Md PCP - General Family Medicine 03/23/20 Kavon Sams MD Physician Family Medicine 02/20/20 Low Pressure Boiler Operator Relationship Specialty Start Date End Date Kavon Sams Md PCP - General Family Medicine 03/23/20 Kavon Sams MD Physician Family Medicine 02/20/20 Low Pressure Boiler Operator Relationship Specialty Start Date End Date Kavon Sams Md PCP - General Family Medicine 03/23/20 Kavon Sams MD Physician Family Medicine 02/20/20 Goals (unrecognized section and content) Goals may be documented in a n alternate section No data available for this section No data available for this section Source Comments (unrecognize d section and content) In the event this informatio n is protected by the Federal Confidentiality of Alcohol and Drug Abuse Patient Records regulations: The Federal rules restrict any use of the information to criminally investigate or prosecute any alcohol or drug abuse patient.[facility] HospitalIn the event this information is protected by the Federal Confidentiality of Alcohol and Drug Abuse Patient Records regulations: The Federal rules restrict any use of the information to criminally investigate or prosecute any alcohol or drug abuse patient.[facility] HospitalIn the event this information is protected by the Federal Confidentiality of Alcohol and Drug Abuse Patient Records regulations: The Federal rules restrict any use of the information to criminally investigate or prosecute any alcohol or drug abuse patient.[facility] HospitalIn the event this information is protected by the Federal Confidentiality of Alcohol and Drug Abuse Patient Records regulations: The Federal rules restrict any use of the information to criminally investigate or prosecute any alcohol or drug abuse patient.[facility] HospitalIn the event this information is protected by the Federal Confidentiality of Alcohol and Drug Abuse Patient Records regulations: The Federal rules restrict any use of the information to criminally investigate or prosecute any alcohol or drug abuse patient.[facility] HospitalIn the event this information is protected by the Federal Confidentiality of Alcohol and Drug Abuse Patient Records regulations: The Federal rules restrict any use of the information to criminally investigate or prosecute any alcohol or drug abuse patient.[facility] HospitalIn the event this information is protected by the Federal Confidentiality of Alcohol and Drug Abuse Patient Records regulations: The Federal rules restrict any use of the information to criminally investigate or prosecute any alcohol or drug abuse patient.[facility] HospitalIn the event this information is protected by the Federal Confidentiality of Alcohol and Drug Abuse Patient Records regulations: The Federal rules restrict any use of the information to criminally investigate or prosecute any alcohol or drug abuse patient.[facility] HospitalIn the event this information is protected by the Federal Confidentiality of Alcohol and Drug Abuse Patient Records regulations: The Federal rules restrict any use of the information to criminally investigate or prosecute any alcohol or drug abuse patient.[facility] HospitalIn the event this information is protected by the Federal Confidentiality of Alcohol and Drug Abuse Patient Records regulations: The Federal rules restrict any use of the information to criminally investigate or prosecute any alcohol or drug abuse patient.[facility] HospitalIn the event this information is protected by the Federal Confidentiality of Alcohol and Drug Abuse Patient Records regulations: The Federal rules restrict any use of the information to criminally investigate or prosecute any alcohol or drug abuse patient.[facility] HospitalIn the event this information is protected by the Federal Confidentiality of Alcohol and Drug Abuse Patient Records regulations: The Federal rules restrict any use of the information to criminally investigate or prosecute any alcohol or drug abuse patient.[facility] Reason for Visit (unrecogniz ed section and content) Reason Comments New Patient Reason Comments Radiology MRI Specialty Diagnoses / Procedures Referred By Contac t Referred To Contact MR IMAGING Diagnoses Spinal stenosis of cervical region Procedures MRI CERVICAL SPINE WO IVCON MRI SPINAL CANAL CERVICAL W/O CONTRAST David Andrea MD [address] [place] [address] Mr Imaging [id number] Referral ID Status Reason Start Date Expiration Date V isits Requested Visits Authorized [id number] Closed Auto-Generate d Referral 09/13/2023 10/12/2024 1 1 Specialty Diagnoses / Procedures Referred By Contac t Referred To Contact MR IMAGING Diagnoses Abnormal posture Procedures MRI THORACIC SPINE WO IVCON MRI SPINAL CANAL THORACIC W/O CONTRAST David Andrea MD [address] [place] [address] Mr Imaging [facility] Referral ID Status Reason Start Date Expiration Date V isits Requested Visits Authorized [id number] Closed Auto-Generate d Referral 09/13/2023 10/12/2024 1 1 Specialty Diagnoses / Procedures Referred By Contac t Referred To Contact MR IMAGING Diagnoses Spinal stenosis of lumbar region with neurogenic claudication Procedures MRI LUMBAR SPINE WO IVCON MRI SPINAL CANAL LUMBAR W/O CONTRAST MATERIAL David Valente MD [address] [place] [address] Mr Imaging [place] [address] Referral ID Status Reason Start Date Expiration Date V isits Requested Visits Authorized [id number] Closed Auto-Generate d Referral 09/13/2023 10/12/2024 1 1 Reason Comments Results MRI Reason Comments Parkinson's Disease Specialty Diagnoses / Procedures Referred By Contac t Referred To Contact Diagnoses Parkinson's disease, unspecified whether dyskinesia present, unspecified whether manifestations fluctuate (HCC) Procedures PROVIDER ORDERED FOLLOW UP OFFICE/OUTPATIENT NEW HIGH MDM 60 MINUTES David Valente MD [address] [place] [address] Referral ID Status Reason Start Date Expiration Date Visits Requested Visits Authorized [id number] Authorized PCP Requested Referral 10/13/2023 09/12/2024 1 1 Reason Comments Med Change Request Reason Comments Medication Update/Amantadine Reason Comments Established Patient Follow Up Reason Comments Established Patient Follow up Specialty Diagnoses / Procedures Referred By Contac t Referred To Contact Diagnoses Parkinson's disease with dyskinesia and fluctuating manifestations (HCC) Procedures PROVIDER ORDERED FOLLOW UP OFFICE/OUTPATIENT NEW HIGH [facility] 60 MINUTES Mariola Montes PA-C [address] [place] [address] Referral ID Status Reason Start Date Expiration Date V isits Requested Visits Authorized [id number] Closed PCP Requested Referral 02/14/2024 01/13/2025 1 1 Reason Comments Refill Request FOR RECORDS PERTAINING TO PATIENTS WHO ARE [...] BASED ON THE PRIMARY CLINICAL RECORDS. [facility]. provides no warranty or guarantee of the accuracy or completeness of information in this document.
[2024-04-09 08:50] LABS: Basophils Absolute Auto 0.1 10^3/uL (0.0-0.1); Basophils Percent Auto 0.8 % (0.2-2.0); Eosinophils Absolute Auto 0.5 10^3/uL (0.0-0.7); Eosinophils Percent Auto 4.7 % (0.9-7.0); Hematocrit 42.7 % (36.0-48.0); Hemoglobin 14.3 g/dL (12.0-16.0); Immature Granulocytes Abs Auto 0.02 10^3/uL (0.00-0.03); Immature Granulocytes Pct Auto 0.2 % (0.0-0.5); Lymphocytes Absolute Auto 2.3 10^3/uL (1.2-3.8); Lymphocytes Percent Auto 20.7 % (20.5-60.0); Mean Corpuscular HGB Conc 33.5 g/dL (29.9-35.2); Mean Corpuscular Hemoglobin 31.4 pg (26.7-34.0); Mean Corpuscular Volume 93.8 fL (81.0-99.0); Mean Platelet Volume 11.4 fL (9.5-13.5); Monocytes Absolute Auto 1.1 10^3/uL (0.3-0.8); Monocytes Percent Auto 9.6 % (1.7-12.0); Platelet Count 304 10^3/uL (150-450); Red Blood Count 4.55 10^6/uL (4.20-5.40); Red Cell Distribution Width 14.5 % (11.0-15.0)
[2024-04-09] MEDS: 0.9 % SODIUM CHLORIDE 1,000 ML 999 ML IV (08:51)
--- NOTE | 2024-04-09 08:51 | XR_ITS ---
[facility] [place] [id number] Patient Name: NANCY KHAN MRN: [id number] date: 1945 Sex: F Assigned Patient Location: ER Current Patient Location: ER Accession/Order Number: [id number] Exam Date: 04/09/2024 09:01 Report Date: 04/09/2024 09:22 At the request of: VIET MARSH Procedure: XR hip LT 2V w/ pelvis PROCEDURE: XR hip LT 2V w/ pelvis HISTORY: Fall , weakness COMPARISON: None. FINDINGS: BONES:Moderate degenerative change of the hip joints bilaterally. No fracture or dislocation. Stable sclerotic foci bone islands within left femoral head and neck. Degenerative changes of the lumbar spine. SOFT TISSUES:No visible soft tissue swelling. EFFUSION:None visible. OTHER: Negative. XR/XR hip LT 2V w/ pelvis IMPRESSION: 1. No appreciable acute abnormality. 2. Degenerative changes of the hip joints and spine. Electronically authenticated by: RAMIRO SPENCER Date: 04/09/2024 09:22
[2024-04-09 09:10] LABS: Lactate/Lactic Acid 1.4 mmol/L (0.4-2.0)
[2024-04-09 09:16] LABS: Alanine Aminotransferase 18 U/L (14-59); Albumin Globulin Ratio 1.3; Albumin Level 3.9 g/dL (3.4-5.0); Alkaline Phosphatase 100 U/L (46-116); Anion Gap 15.6; Aspartate Amino Transferase 16 U/L (15-37); BUN Creatinine Ratio 16.8; Bilirubin Total 0.7 mg/dL (0.2-1.0); Calcium 11.1 mg/dL (8.5-10.1); Carbon Dioxide 26.1 mmol/L (21.0-32.0); Chloride 106 mmol/L (98-107); Estimated GFR (African America 45 (>=60 mL/min/1.73m^2); Estimated GFR (Non-African Ame 37 (>=60 mL/min/1.73m^2); Glucose 118 mg/dL (74-106); Potassium 3.7 mmol/L (3.5-5.1); Sodium 144 mmol/L (136-145); Total Protein 6.9 g/dL (6.4-8.2)
[2024-04-09 09:55] LABS: Bilirubin Urine NEGATIVE (NEGATIVE); Blood Urine NEGATIVE (NEGATIVE); Clarity Urine CLEAR (CLEAR); Color Urine LT. YELLOW (YELLOW); Glucose Urine UA NEGATIVE (NEGATIVE); Ketones Urine NEGATIVE (NEGATIVE); Leukocyte Esterase Urine LARGE (NEGATIVE); Nitrite Urine NEGATIVE (NEGATIVE); Protein Urine NEGATIVE (NEG/TRACE); Urobilinogen Urine 0.2 EU/dL (0.2-1.0); pH Urine 6.5 (5.0-9.0)
[2024-04-09 09:56] LABS: Urine Microscopic Indicated YES
[2024-04-09 10:04] LABS: Bacteria Urine TRACE #/HPF (NONE SEEN); Mucus Urine NONE SEEN (NONE SEEN); RBC Urine 0-2 #/HPF (0-2)
[2024-04-09 10:05] LABS: Cast Seen? NONE SEEN #/LPF (NONE SEEN); Crystals Seen? None Seen #/HPF (None Seen); Squamous Epithelial Cell Urine RARE #/LPF (NONE/RARE); Urine Culture Indicated YES
[2024-04-09] MEDS: CIPROFLOXACIN IN 5 % DEXTROSE 400 MG/200 ML PREMIX 200 MG IV (10:30)
== END 2024-04-09 11:42 | disposition home or self-care (01) ==
PROVIDERS: Emergency Provider Emergency Medicine Emergency Medical Services; PCP Family Medicine
DX: N39.0 Urinary tract infection, site not specified (principal); I10 Essential (primary) hypertension; G20.A1 Parkinson's disease without dyskinesia, without mention of fluctuations; Z90.710 Acquired absence of both cervix and uterus; Z90.81 Acquired absence of spleen; Z87.891 Personal history of nicotine dependence; R53.1 Weakness; Z91.81 History of falling
CPT/HCPCS: 36415; 71045; 73502; 80053; 81001; 83605; 84484; 85025; 87086; 87186; 93005; 96365; 99285; J0744

== ENCOUNTER 2024-05-01 06:52 | Outpatient (OUT) | payer MEDICARE, OTHER, SELFPAY ==
--- OUTSIDE RECORDS SUMMARY | 2024-05-01 06:59 | XMS_ITS | CCD ---
Author Organization [facility] Care Team Providers Care Roofer Assistant Name Role Phone SELF, REFERRED Unavailable Unavailable SELF, REFERRED Unavailable Unavailable BRAMOS, ATHANASIOS Unavailable Unavailable SUPA MAY Unavailable Unavailable GA Unavailable Unavailable BRAMOS, ATHANASIOS Unavailable Unavailable GA Unavailable Unavailable SUPA MAY Unavailable Unavailable PHYSICIAN, [...] HOY ., DR MENSAH Attending Unavailable HOY .DR MENSAH Consulting Unavailable HOY ., DR MENSAH Primary Care Unavailable HOY ., DR MENSAH Admitting Unavailable HOY ., DR MENSAH Attending Unavailable HOY ., DR MENSAH Consulting Unavailable FLAQUITA ., DR MENSAH Primary Care Unavailable JOHANNA, DR RAMIRO Gates Consulting Unavailable MD Kavon Sams Primary Care Provider [phone] DIXIE Gill Attending Provider [phone] Kavon Sams Primary Care Physician Elian Quigley Unavailable Unavailable Mela Espinal Admitting Unavailable Haile CASTRO Attending Unavailable Kimball, Ramiro Consulting Unavailable Kimball, Ramiro Consulting Unavailable Kimball, Ramiro Consulting Unavailable Kimball, Ramiro Consulting Unavailable Kimball, Ramiro Consulting Unavailable Kimball, Ramiro Consulting Unavailable Kimball, Ramiro Consulting Unavailable Kimball, Ramiro Consulting Unavailable Kimball, Ramiro Consulting Unavailable Demarco Beaver Attending Unavailable Giovanni Gill Attending Unavailable Kavon Sams Primary Care Unavailable Giovanni Gill Admitting Unavailable Giovanni Gill Attending Unavailable Kavon Sams Primary Care Unavailable Giovanni Gill Admitting Unavailable Kavon Sams MD Unavailable Kavon Sams Md Primary Care Provider [phone] Kavon Sams Md Primary Care Provider [phone] Gikulwinderitis , Andrius Nath Attending Unavailable Giedraitis , Andrius Valla Attending Unavailable Giedraitis , Andrius Vyterlinda Attending Unavailable Giedraitis , Andrius Vyterlinda Attending Unavailable Giedraitis , Andrius Valla Attending Unavailable SHEEHAN, JIANLIN Admitting Unavailable SHEEHAN, JIANLIN Attending Unavailable SHEEHAN, JIANLIN Admitting Unavailable AMRIK, MILA Referring Unavailable SHEEHAN, JIASAMMYIN Attending Unavailable AMRIK, MILA Attending Unavailable STEPHENIE PRECIADO Attending Unavailable JOSH THIBODEAUX Referring Unavailable SHEEHAN, JIANLIN Attending Unavailable AMRIK, MILA Referring Unavailable SHEEHAN, JIANLIN Attending Unavailable SHEEHAN, JIANLIN Referring Unavailable SHEEHAN, JIANLIN Attending Unavailable SHEEHAN, JIANLIN Attending Unavailable AMRIK, MILA Attending Unavailable SIMONVICTORIA GRAFFA Attending Unavailable SIDRADAVID Referring Unavailable SIDRA, DAVID Referring Unavailable SIDRA, DAVID Referring Unavailable SIDRA, DAVID Referring Unavailable SIDRA, DAVID Attending Unavailable MARIOLA MONTES Attending Unavailable SIMON, MARIOLA Referring Unavailable Kavon Sams MD Primary Care Provider [phone] GIOVANNI GILL Attending Unavailable GIOVANNI GILL Attending Unavailable GIOVANNI GILL Referring Unavailable Allergies Allergy Classification Reported Allergen(s) Allergy Type Date of Onset Reaction(s) Facility Sulfonamides (antibiotic) (1 source) Sulfonamides (Antibiotic); 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: [sulfa drugs] Drug Allergy Unknown (qualifier value) [facility] (5 sources) Sulfonamides (Antibiotic); 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: [SULFA (SULFONAMIDE ANTIBIOTICS)] Drug allergy (disorder) 4 [facility] (1 source) Cephalexin Drug Allergy 2 [facility] (2 sources) Sulfonamides (Antibiotic); 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: [sulfa drugs] Drug allergy Unknown (qualifier value) [facility] (1 source) Unable to Assess Drug allergy (disorder) 3 [facility] Repository (13 sources) Naproxen; 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: [NAPROXEN SODIUM] Drug Allergy 4 Unknown [facility] (15 sources) Sulfonamides (Antibiotic) Drug Allergy 4 Anaphylaxis [facility] (1 source) traZODone; 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: [TRAZODONE] Drug Allergy 4 [facility] Repository Medications Current Medications Medication Drug Class(es) Dates Sig (Normalized) Sig (Original) acetaminophen 500 mg oral tablet (3 sources) Start: 09-18-2023 take 1 tablet by mouth every six hours as needed [facility]etamin[facility] 500 MG tablet Take 500 mg by mouth every 6 (six) hours if needed 09/18/2023 Active ALPRAZolam 1 mg oral tablet (17 sources) Benzodiazepine Start: 02-10-2020 alprazolam 1 mg Tab 1 mg = 1 tab(s), Oral, PRN for anxiety Start Date: 02/10/20 Status: Ordered Comment on above: Take 1 mg by mouth a t bedtime as needed. amantadine hydrochloride 100 mg oral tablet (14 sources) Influenza A M2 Protein Inhibitor Start: 10-22-2023 End: 11-07-2024 take 1 tablet by mouth in the morning amantadine (Symmetrel) 100 MG tablet Take 100 mg by mouth in the morning and 100 mg before bedtime. 10/22/2023 Active Start: 10-17-2023 End: 01-15-2024 take 1 [...] 2 10/17/2023 10/18/2023 Discontinued (Dosage adjustment) amLODIPine 5 mg oral tablet (17 sources) Dihydropyridine Calcium Channel Ayo Start: 07-02-2023 take 1 tablet by mouth once daily amLODIPine (Norvasc) 5 MG tablet TAKE 1 TABLET BY MOUTH ONCE A DAY DIRECTED 07/02/2023 Active Start: 02-10-2020 take 1 tablet by clyde th once daily amLODIPine 10 mg Tab 10 mg = 1 tab(s), Oral, Daily Start Date: 02/10/20 Status: Ordered Comment on above: Take 10 mg by mouth once daily. aspirin 81 mg oral tablet (17 sources) Platelet Aggregation Inhibitor, Nonsteroidal Anti-inflammatory Drug [...] 1 tablet by clyde th once daily. Calcium Carbonate-Vit D-Min (Calcium 600+D Plus Minerals) 600-400 MG-UNIT tablet (3 sources) Calcium Carbonat e-Vit D-Min (Calcium 600+D Plus Minerals) 600-400 MG-UNIT tablet 1 (one) time each day at the same time Active carbidopa 25 mg / levodopa 100 mg extended release oral tablet (18 sources) Aromatic Amino Acid Decarboxylation Inhibitor, Aromatic [...] tablet 3 01/02/2024 01/14/2024 Discontinued Start: 09-13-2023 take 1 tablet by clyde th in the morning, then take 1 tablet by mouth in the evening, then take 1 tablet by mouth at bedtime Sinemet 25-100 MG tablet Take 1 tablet by mouth in the morning and 1 tablet in the evening and 1 tablet before bedtime. 09/13/2023 Active Start: 09-13-2023 End: 10-20-2023 take 0.5 tablet [...] noon, and 5pm.. Take 1 tablet by cldye th once daily. cephalexin 500 mg oral capsule (1 source) Cephalosporin Antibacterial Start: 2023 End: 2023 take 1 capsule by mouth three times daily Keflex 500 mg Cap 500 mg = 1 cap(s), Oral, TID, X 5 day(s), # 15 cap(s), Refills(s) 0, Pharmacy: [facility]/pharmacy #[id number], 167, cm, 06/23/23 1:52:00 EST, [...] afterwards, # 2 tab(s), Refills(s) 0, Pharmacy: [facility]/pharmacy #[id number], 167, cm, 02/10/20 14:06:00 EDT, Height/Length Dosing, 52, kg, 02/10/20 14:06:00 EDT, Weight Dosing Start Date: 02/25/20 Status: Ordered cyclobenzaprine hydrochloride 10 mg oral tablet (15 sources) Muscle Relaxant Start: 2023 cyclobenzaprine (FLEXERIL) [...] Status: Ordered gabapentin 300 mg oral capsule (15 sources) Anti-epileptic Agent Start: 2023 take 1 capsule by mouth once daily, then take 1 capsule by mouth twice daily, then take 1 capsule by mouth three times daily gabapentin (NEURONTIN) 300 mg capsule TAKE 1 CAPSULE BY MOUTH ONCE DAILY X3DAYS, 1 CAPSULE TWICE DAILY X3DAYS THEN 1 CAPSULE 3 TIMES DAILY 07/30/2023 Active Comment on above: TAKE 1 CAPSULE BY [facility] ONCE DAILY X3DAYS, 1 CAPSULE TWICE DAILY X3DAYS THEN 1 CAPSULE 3 TIMES DAILY hydroCHLOROthiazide 25 mg / lisinopril 20 mg oral tablet (17 sources) Thiazide Diuretic, Angiotensin Converting Enzyme Inhibitor Start: 2019 take 2 tablets by mouth once daily hydrochlorothiazide-l isinopril 25 mg-20 mg Tab 2 tab(s), Oral, Daily Start Date: 02/10/20 Status: Ordered Comment on above: Take 1 tablet by clyde th once daily. lisinopril 20 mg oral tablet (3 sources) Angiotensin Converting Enzyme Inhibitor take 1 tablet by mouth once daily lisinopril 20 MG tablet Take 1 tablet by mouth Daily Active metoprolol tartrate 100 mg oral tablet (10 sources) beta-Adrenergic Ayo End: 2023 take 1 tablet by mouth in the morning metoprolol tartrate (Lopressor) 100 MG tablet Take 100 mg by mouth in the morning and 100 mg before bedtime. Active Comment on above: Take 100 mg by mouth twice daily. Mis Medication (2 sources) Start: 2019 Misc Medication calcium +D3 Start Date: 02/10/20 Status: Ordered Multivitamin preparation (12 sources) MULTIVITAMIN ( TAMIN DAILY ORAL) Take by mouth once daily. Active MULTIVITAMIN ( TAMIN DAILY ORAL) Take by mouth once daily. 0 Active Comment on above: Take by mouth once d aily. omeprazole 20 mg delayed release oral capsule (3 sources) Proton Pump Inhibitor Start: take 1 capsule by mouth before mealtime omeprazole (PriLOSEC) [address] capsule Take 20 mg by mouth in the morning. Take before meals. 09/11/2023 Active pantoprazole 40 mg delayed release oral tablet (3 sources) Proton Pump Inhibitor take 1 tablet by mouth before mealtime pantoprazole (ProtoNix) 40 MG EC tablet Take 40 mg by mouth in the morning. Take before meals. Active phenazopyridine hydrochloride 200 mg delayed release oral tablet (3 sources) Start: phenazopyridine (Pyridium) 200 MG tablet Take 200 mg by mouth in the morning and 200 mg at noon and 200 mg in the evening. Take with meals. 09/07/2023 Active microencapsulated potassium chloride 20 meq extended release oral tablet (20 sources) Start: take 1 tablet by mouth in the morning KLOR-CON 20 MEQ ER tablet Take 1 tablet by mouth in the morning and 1 tablet in the evening. Take with meals. 06/30/2023 Active Start: 06-30-2023 take 1 tablet by clyde th every twelve hours KLOR-CON M20 20 mEq tablet Take 1 tablet by mouth every 12 hours. 06/30/2023 Active Start: 02-10-2020 take 2 tablets by mo [facility] once daily potassium chloride 20 mEq ER Tab 40 mEq = 2 tab(s), Oral, Daily Start Date: 02/10/20 Status: Ordered take 2 tablets by mo [facility] in the morning potassium chloride CR (Klor-Con) 10 MEQ ER tablet Take 20 mEq by mouth in the morning and 20 mEq before bedtime. Active potassium chlori de (KLOR-CON 10) 10 mEq tablet Take 20 mEq by mouth once daily. Active Comment on above: Take 20 mEq by mouth once daily. Take 1 tablet by [facility] every 12 hours. pravastatin sodium 20 mg oral tablet (17 sources) HMG-CoA Reductase Inhibitor Start: 02-10-2020 take 1 tablet by mouth once daily Pravachol 20 mg Tab 20 mg = 1 tab(s), Oral, Daily Start Date: 02/10/20 Status: Ordered Comment on above: Take 20 mg by mouth once daily. rasagiline 1 mg oral tablet (15 sources) Monoamine Oxidase Inhibitor Start: 03-27-2024 take 1 tablet by mouth once daily rasagiline (Azilect) 1 MG tablet Indications: Parkinson's disease ([facility]) TAKE 1 TABLET BY MOUTH EVERY DAY 90 tablet 1 03/27/2024 Active Start: 07-20-2023 rasagiline (AZ ILECT) 1 mg tab Take by mouth. 07/20/2023 Active Comment on above: Take by mouth. rOPINIRole 0.25 mg oral tablet (15 sources) Nonergot Dopamine Agonist Start: 09-13-2023 take 1 tablet by mouth at bedtime rOPINIRole (Requip) 0.25 MG tablet Take 0.25 mg by mouth at bedtime 09/13/2023 Active Start: 09-13-2023 rOPINIRole (RE QUIP) 0.25 mg tablet Reduce to 2 tablets, [...] at night. Continue on that dose thereafter. UNABLE TO FIND (3 sources) UNABLE TO FIND H PA BASHIR Active Completed/Discontinued Medications Medication Drug Class(es) Dates Sig [...] Take 800 mg by mouth once daily. OMEGA-3 FATTY ACIDS/FISH OIL (OMEGA 3 [...] Active Problems Problem Classification Problem Date Documented Date Episodic/Chronic Anxiety disorders (1 source) Anxiety disorder, [...] metabolism (20 sources) Hyperlipidemia, unspecified; 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: [Pure hypercholesterolemia, unspecified] Onset: 06-18-2014 Chronic Essential hypertension (20 sources) Essential (primary) hypertension; 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: [Essential hypertension] Onset: 07-02-2013 Chronic External Injury - Fall (1 source) Unspecified fall, initial encounter; 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: [UNSPECIFIED FALL, INITIAL ENCOUNTER] Onset: 08-11-2017 Hypertension with complications and secondary hypertension (1 source) Hypertensive heart disease with heart failure; 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: [HTN HEART DISEASE W/HEART FAIL] Onset: 10-12-2022 Chronic Miscellaneous mental health disorders (3 sources) Primary insomnia; 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: [Primary insomnia] Onset: 10-25-2023 10-25-2023 Chronic Nutritional deficiencies (3 sources) Unspecified protein-calorie malnutrition; 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: [Vitamin D deficiency, unspecified] Onset: 08-11-2017 Chronic Occlusion or stenosis of precerebral arteries (4 sources) Bilateral stenosis of carotid arteries; 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: [Occlusion and stenosis of bilateral carotid arteries] 04-23-2024 Chronic Other circulatory disease (1 source) Personal history of transient ischemic attack (TIA), and cerebral infarction without residual deficits; 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: [Personal history of transient ischemic attack (TIA), and cerebral infarction without residual deficits] Onset: 08-14-2023 Episodic Other circulatory disease (4 sources) History of cerebrovascular accident; 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: [Personal history of transient ischemic attack (TIA), and cerebral infarction without residual deficits] 04-23-2024 Episodic Other eye disorders (1 source) Degenerative disorder of eye; 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, bilateral eye] 09-13-2023 Chronic Other eye disorders (1 source) Degenerative myopia with other maculopathy, bilateral eye; 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, bilateral eye] Onset: 09-13-2023 Chronic Other hereditary and degenerative nervous system conditions (1 source) Dystonia, unspecified; 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: [Dystonia, unspecified] Onset: 05-15-2023 Chronic Other hereditary and degenerative nervous system conditions (3 sources) Intention tremor; 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: [Other specified forms of tremor] Onset: 10-25-2023 10-25-2023 Chronic Other hereditary and degenerative nervous system conditions (5 sources) Restless legs; 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: [Restless legs syndrome] Onset: 10-25-2023 10-25-2023 Chronic Other hereditary and degenerative nervous system conditions (5 sources) Dyskinesia; 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: [Dystonia, unspecified] Onset: 10-25-2023 10-25-2023 Chronic Other lower respiratory disease (1 source) Hypoxemia; 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: [Hypoxemia] Onset: 06-23-2023 Episodic Other nervous system disorders (13 sources) Neuropathy; 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: [Polyneuropathy, unspecified] Onset: 09-13-2023 09-13-2023 Chronic Other nervous system disorders (1 source) Polyneuropathy, unspecified; 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: [Neuropathy] Onset: 09-13-2023 Chronic Other nervous system disorders (3 sources) Carpal tunnel syndrome of right wrist; 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: [Carpal tunnel syndrome, right upper limb] Onset: 10-25-2023 10-25-2023 Chronic Other nervous system disorders (3 sources) Chronic pain; 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: [Other chronic pain] Onset: 10-25-2023 10-25-2023 Chronic Other nutritional; endocrine; and metabolic disorders (2 sources) Hypocalcemia; 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: [Other disorders of phosphorus metabolism] Onset: 08-11-2017 Chronic Other screening for suspected conditions (not mental disorders or infectious disease) (1 source) Blood chemistry abnormal; 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: [Other specified abnormal findings of blood chemistry] Onset: 06-23-2023 Episodic Paralysis (3 sources) Right hemiplegia; 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: [Hemiplegia, unspecified affecting right dominant side] Onset: 10-25-2023 10-25-2023 Chronic Parkinson's disease (4 sources) Parkinson's disease; 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: [...] fluctuations] Onset: 06-23-2023 Chronic 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) terminal makeup operator (current) use of oral hypoglycemic drugs; 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: [PRODUCT LINE MANAGER (CURRENT) USE OF ORAL HYPOGLYCEMIC DRUGS] Onset: [...] Onset: 05-24-2022 Episodic Other aftercare (2 sources) prison (current) use of aspirin; 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: [[facility] (CURRENT) USE OF ASPIRIN] Onset: 08-11-2017 Episodic Other aftercare (1 source) Other terminal makeup operator (current) drug therapy; 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: [OTH PRODUCT LINE MANAGER CURRENT DRUG THERAPY] Onset: 05-22-2022 Episodic [...] acute postprocedural pain] Onset: 09-17-2023 Episodic Other nervous system disorders (3 sources) Ataxia; 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: [Ataxia, unspecified] Onset: 10-25-2023 10-25-2023 Episodic Other nervous system disorders (3 sources) Paresthesia; 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: [Paresthesia of skin] Onset: 10-25-2023 10-25-2023 Episodic Other nutritional; endocrine; and metabolic disorders [...] Test Name Value Interpretation Reference Range Facility [facility] 02-22-2024 CNOV Office Visit (NREUS2 ) JUDITH KHAN ([id number]) 1945 F Date Time Provider Department 02/22/24 3:00 PM MARIOLA MONTES NREUS2 During your visit today, we recorded the following information about you: Pulse Blood pressure 92/minute 133/73 Ga Shaw MA 02/22/2024 4:46 PM Signed Reason for WROTF Tablet to not get completed: Patient wishes to abort because of stress/struggling or is interrupted by their computing machine operator. Mariola Montes PA-C 02/22/2024 4:46 PM Signed [...] some every day Dry mouth - please tile picker some OTC spray to help Please come back to see me Sunday, February 21 at 3:00PM Interval History: Judith [...] that she is going to travel to [place] to see her friends, which prior to [...] spontaneous s (more content not included)... Normal [facility] CNOVon 01-14-2024 CNOV Office Visit (NREUS2 ) JUDITH KHAN ([id number]) 1945 F Date Time Provider Department 01/14/24 [...] or a (more content not included)... Normal [facility] Office Visiton 12-20-2023 Follow-up visit [id number] Donato Khan 1945 F Date Provider Department Center 12/20/2023 3848-STEPHENIE PRECIADO SANTA [facility] [place] [facility] Family History Problem Relation Age of Onset Stroke Mother Stroke Brother Other Mother's Sister Coronary artery disease Mother's Sister Stroke Maternal Grandmother Family Status - Relation Status Age at Mother Brother Mother's Sister Maternal Grandmother Level of Service:60618 [place] OFFICE/OUTPATIENT ESTABLISHED MOD MDM 30 MIN [facility] 36on 12-04-2023 36 . [facility] Office Visiton 11-27-2023 Follow-up visit [id number] Donato Khan 1945 F Date Provider Department Center 11/27/2023 Cor[facility]-VERENA SHEEHAN [facility] SURG Second Fl Family History Problem Relation Age of Onset Stroke Mother Stroke Brother Other Mother's Sister Coronary artery disease Mother's Sister Stroke Maternal Grandmother Family Status - Relation Status Age at Mother Brother Mother's Sister Maternal Grandmother Level of Service:91485 [place] POSTOP FOLLOW UP VISIT RELATED TO ORIGINAL PX Reason for Visit and Comments: Post-op [483] - Judith is here today for a post op visit for an incisional hernia, s/p 09/17/23 DaVinci incisional hernia repair. [facility] CNPNon 11-08-2023 CNPN Telephone (NREUS2) JUDITH KHAN ([id number]) 1945 F Date Time Provider Department 11/08/23 DAVID VALENTE NREUS2 During your visit today, we recorded the following information about you: Leonora Cisneros 11/08/2023 12:01 PM Addendum Jaimee (pt' granddaughter) called to report this week pt's back to experiencing jerking movement. Pt started Amantadine 100 mg week of October 24 and first week medication helped dyskinesia. [phone] 09/13/23 DARRYL w/Dulce Mariano RN 11/08/2023 12:57 PM Signed Spoke with [...] Encounter Statu (more content not included)... Normal [facility] 10-17-2023 [facility] Telephone (NREUS2) JUDITH KHAN ([id number]) 1945 F Date Time Provider Department 10/17/23 DAVID VALENTE NREUS2 During your visit today, we recorded the following information about you: Gabbi Lu 10/17/2023 10:17 AM Signed Judith phoned for results of MRI done on 10/06. She does not use and would like a return call. [phone] David Valente MD 10/17/2023 10:25 AM Signed [...] in more detail at next office visit. Sabino SwanzacharyGabbi 10/22/2023 9:39 AM Signed Pt's daughter phoned stating that her mother was supposed to have called regarding the increased dyskinesias that she has been experiencing. She also does not recall the discuss of the MRI results. Please call daughter Kathie only to discuss [phone]. I also updated all of the phone number in her chart to reflect only Kathie's. Dulce Melgar RN 10/22/2023 10:24 AM Signed Spoke with Kathie. As of 10/17/23 pt was supposed to start 100mg Amantadine daily for increased dyskinesia. Pt has not yet started, they would like the script sent to [facility] in [place] (instead of [facility]). Script sent as requested. Also reviewed MRI [...] mouth once daily. Cosign required by DAVID VALENTE[[id number]] Medications Discontinued During This Encounter Prescriptions - amantadine HCl (SYMMETREL) 100 mg tablet (Discontinued) Take 1 tablet by mouth once daily. (more content not included)... Normal [facility] 10-09-2023 [facility] Telephone (NREUS2) JUDITH KHAN ([id number]) 1945 F Date Time Provider Department 10/09/23 DAVID VALENTE NREUS2 During your visit today, we recorded the following information about you: Mila Jin 10/09/2023 11:41 AM Signed Patients daughter calling to say there was medication discussed during last OV for dyskinesia. They want to know what it was and if it can be prescribed because she's still having this issue. Kathie Calvillo (Daughter) [phone] (Home Phone) David Valente MD 10/17/2023 9:43 AM Signed Dear Neelima, If she lives alone, I'd prefer the zonisamide. If she lives with someone who can monitor for the possible cognitive side effects of amantadine, I'd prefer amantadine. Thanks! -Neelima Miguel, [facility]EL[facility] 10/17/2023 5:29 PM Signed Addended by: NEELIMA [...] Encounter Status:Closed by GABBI LU on 10/17/23 [facility] MR Cervical spine WO contras ton 10-07-2023 * * [...] are otherwise unremarkable. DIVISION OF RADIOLOGY Provider, [facility] - 10/07/2023 * * *Final Report* [...] lumbar spine wi (more content not included)... [facility] MR Lumbar spine WO contrasto n [...] are otherwise unremarkable. DIVISION OF RADIOLOGY Provider, [facility] - 10/07/2023 * * *Final Report* [...] the cervical, thor (more content not included)... [facility] Radiology Study observation (narrative) [facility] MR Thoracic spine WO contras ton [...] are otherwise unremarkable. DIVISION OF RADIOLOGY Provider, [facility] - 10/07/2023 * * *Final Report* [...] spine without contrast. (more content not included)... [facility] MRI CERVICAL SPINE WO IVCONo n [...] L4-5 i (more content not included)... Normal [facility] MRI LUMBAR SPINE WO IVCONon 10-07-2023 [...] Anatomic Thoracic/L (more content not included)... Normal [facility] MRI THORACIC SPINE WO IVCONo n [...] the l (more content not included)... Normal [facility] No Panel Informationon 10-06 IMPRESSION: Degenerative [...] and assume there are 5 lumbar-type vertebrae. Wildlife Control Operator: DEAN Transcribe Date/Time: Oct 07 2023 12:07P Dictated by : YANETH SALDAÑA MD This examination was interpreted and the report reviewed and electronically signed by: YANETH SALDAÑA MD on Oct 07 2023 12:21PM [facility] DIVISION OF RADIOLOGY Radiology Study observation (narrative) [facility] No Panel InformationOrdered By: [facility] Provider on 10-07-2023 [facility] Office Visiton 09-26-2023 Follow-up visit [id number] Donato Khan A 1945 F Date Provider Department Center 09/26/2023 Corazon-SHEEHAN VERENA [facility] SURG Second Fl Family History Problem Relation Age of Onset Stroke Mother Stroke Brother Other Mother's Sister Coronary artery disease Mother's Sister Stroke Maternal Grandmother Family Status - Relation Status Age at Mother Brother Mother's Sister Maternal Grandmother Level of Service:26790 [place] POSTOP FOLLOW UP VISIT RELATED TO ORIGINAL PX Reason for Visit and Comments: Post-op [483] - Judith is here today for a post op visit for an incisional hernia, s/p 09/17/23 DaVinci incisional hernia repair. Normal [facility] 30on 09-18-2023 30 The patient is Moder [...] Free from fall injury Outcome: Progressing Normal [facility] BASIC METABOLIC PANELon 04-0 Anion gap [Moles/Vol] 11 mmol/L Normal 7-20 [facility] Comment on above: Performed By: #### L [id number] #### [facility] (BEAKER) [address] [place] [address] Calcium [Mass/Vol] 9.0 mg/dL Normal 8.6-10.3 [facility] Comment on above: Performed By: #### L [id number] #### [facility] (BEAKER) [address] [place] [address] Chloride [Moles/Vol] 107 mmol/L Normal 98-107 [facility] Comment on above: Performed By: #### L [id number] #### [facility] ([facility] [address] [place] [address] CO2 [Moles/Vol] 25 mmol/L Normal 21-31 [facility] Comment on above: Performed By: #### L [id number] #### [facility] ([facility] [address] [place] [address] Creatinine [Mass/Vol] 0.93 mg/dL Normal 0.60-1.20 [facility] Comment on above: Performed By: #### L [id number] #### [facility] ([facility] [address] [place] [address] GLOMERULAR FILTRATION RATE ML/MIN/1.73 SQ M.PREDICTED 63.3 mL/min/1.73m*2 Normal >60.0 [facility] Comment on above: Result Comment: [facility]???s estimated glomerular filtration rate (eGFR) will no [...] individuals. Performed By: #### L [id number] #### [facility] ([facility] [address] [place] [address] Glucose [Mass/Vol] 112 mg/dL High 70-100 [facility] Comment on above: Performed By: #### L [id number] #### [facility] ([facility] [address] [place] [address] Potassium [Moles/Vol] 4.5 mmol/L Normal 3.5-5.1 [facility] Comment on above: Performed By: #### L [id number] #### [facility] (BEAKER) [address] [place] [address] Sodium [Moles/Vol] 138 mmol/L Normal 136-145 [facility] Comment on above: Performed By: #### L [id number] #### [facility] (BEAKER) [address] [place] [address] Urea nitrogen [Mass/Vol] 21 mg/dL Normal 7-25 [facility] Comment on above: Performed By: #### L [id number] #### [facility] (BEAKER) [address] [place] [address] UREA NITROGEN/CREATININE (MASS RATIO) IN SER/PLAS 22.6 Normal [facility] Comment on above: Performed By: #### L [id number] #### [facility] (BEAKER) [address] [place] [address] Anion gap [Moles/Vol] 10 mmol/L Normal 7-20 [facility] Comment on above: Performed By: #### L [id number] #### [facility] (BEAKER) [address] [place] [address] Calcium [Mass/Vol] 9.1 mg/dL Normal 8.6-10.3 [facility] Comment on above: Performed By: #### L [id number] #### [facility] (BEAKER) [address] [place] [address] Chloride [Moles/Vol] 106 mmol/L Normal 98-107 [facility] Comment on above: Performed By: #### L [id number] #### [facility] (BEAKER) [address] [place] [address] CO2 [Moles/Vol] 26 mmol/L Normal 21-31 [facility] Comment on above: Performed By: #### L [id number] #### [facility] (BEAKER) [address] [place] [address] Creatinine [Mass/Vol] 0.96 mg/dL Normal 0.60-1.20 [facility] Comment on above: Performed By: #### L [id number] #### [facility] ([facility] [address] [place] [address] GLOMERULAR FILTRATION RATE ML/MIN/1.73 SQ M.PREDICTED 60.9 mL/min/1.73m*2 Normal >60.0 [facility] Comment on above: Result Comment: [facility]???s estimated glomerular filtration rate (eGFR) will no [...] individuals. Performed By: #### L [id number] #### [facility] ([facility] [address] [place] [address] Glucose [Mass/Vol] 126 mg/dL High 70-100 [facility] Comment on above: Performed By: #### L [id number] #### [facility] ([facility] [address] [place] [address] Potassium [Moles/Vol] 4.2 mmol/L Normal 3.5-5.1 [facility] Comment on above: Performed By: #### L [id number] #### [facility] ([facility] [address] [place] [address] Sodium [Moles/Vol] 138 mmol/L Normal 136-145 [facility] Comment on above: Performed By: #### L [id number] #### [facility] ([facility] [address] [place] [address] Urea nitrogen [Mass/Vol] 22 mg/dL Normal 7-25 [facility] Comment on above: Performed By: #### L [id number] #### [facility] ([facility] [address] [place] [address] UREA NITROGEN/CREATININE (MASS RATIO) IN SER/PLAS 22.9 Normal [facility] Comment on above: Performed By: #### L [id number] #### [facility] ([facility] [address] [place] [address] CBCon 09-18-2023 Erythrocyte distribution width (RBC) [Ratio] 14.5 % Normal 11.5-15.0 [facility] Comment on above: Performed By: #### L [id number] #### [facility] ([facility] [address] [place] [address] ERYTHROCYTE MEAN CORPUSCULAR HEMOGLOBIN CONCENTRATION (G/DL) BY AUTOMATED 32.1 g/dL Normal 32.0-35.0 [facility] Comment on above: Performed By: #### L [id number] #### [facility] ([facility] [address] [place] [address] Hematocrit (Bld) [Volume fraction] 40.5 % Normal 36.0-48.0 [facility] Comment on above: Performed By: #### L [id number] #### [facility] ([facility] [address] [place] [address] Hemoglobin (Bld) [Mass/Vol] 13.0 g/dL Normal 12.0-15.0 [facility] Comment on above: Performed By: #### L [id number] #### [facility] ([facility] [address] [place] [address] MCH (RBC) [Entitic mass] 30.8 pg Normal 27.0-33.0 [facility] Comment on above: Performed By: #### L [id number] #### [facility] ([facility] [address] [place] [address] MCV (RBC) [Entitic vol] 96.0 fL Normal 82.0-98.0 [facility] Comment on above: Performed By: #### L [id number] #### [facility] ([facility] [address] [place] [address] PLATELETS (10*3/UL) IN BLOOD AUTOMATED COUNT 309 10*3/uL Normal 150-400 [facility] Comment on above: Performed By: #### L [id number] #### [facility] ([facility] [address] [place] [address] RBC (Bld) [#/Vol] 4.22 10*6/uL Normal 3.80-5.00 [facility] Comment on above: Performed By: #### L [id number] #### [facility] ([facility] [address] [place] [address] WBC (Bld) [#/Vol] 6.97 10*3/uL Normal 4.00-10.60 [facility] Comment on above: Performed By: #### L [id number] #### [facility] ([facility] [address] [place] [address] CBC WITH AUTO DIFFERENTIALon 09-18-2023 Erythrocyte distribution width (RBC) [Ratio] 14.4 % Normal 11.5-15.0 [facility] Comment on above: Performed By: #### L [id number] #### [facility] ([facility] [address] [place] [address] ERYTHROCYTE MEAN CORPUSCULAR HEMOGLOBIN CONCENTRATION (G/DL) BY AUTOMATED 33.0 g/dL Normal 32.0-35.0 [facility] Comment on above: Performed By: #### L [id number] #### [facility] ([facility] [address] [place] [address] Hematocrit (Bld) [Volume fraction] 39.7 % Normal 36.0-48.0 [facility] Comment on above: Performed By: #### L [id number] #### [facility] [address] [place] [address] Hemoglobin (Bld) [Mass/Vol] 13.1 g/dL Normal 12.0-15.0 [facility] Comment on above: Performed By: #### L [id number] #### [facility] [address] [place] [address] MCH (RBC) [Entitic mass] 31.3 pg Normal 27.0-33.0 [facility] Comment on above: Performed By: #### L [id number] #### [facility] [address] [place] [address] MCV (RBC) [Entitic vol] 95.0 fL Normal 82.0-98.0 [facility] Comment on above: Performed By: #### L [id number] #### [facility] ([facility] [address] [place] [address] NRBC (PER 100 WBCS) BY AUTOMATED COUNT 0.0 % Normal 0 [facility] Comment on above: Performed By: #### L [id number] #### [facility] ([facility] [address] [place] [address] PLATELETS (10*3/UL) IN BLOOD AUTOMATED COUNT 301 10*3/uL Normal 150-400 [facility] Comment on above: Performed By: #### L [id number] #### [facility] ([facility] [address] [place] [address] RBC (Bld) [#/Vol] 4.18 10*6/uL Normal 3.80-5.00 [facility] Comment on above: Performed By: #### L [id number] #### [facility] ([facility] [address] [place] [address] WBC (Bld) [#/Vol] 6.49 10*3/uL Normal 4.00-10.60 [facility] Comment on above: Performed By: #### L [id number] #### [facility] ([facility] [address] [place] [address] MAGNESIUMon 09-18-2023 Magnesium [Mass/Vol] 1.8 mg/dL Low 1.9-2.7 [facility] Comment on above: Performed By: #### L [id number] #### [facility] [address] [place] [address] MANUAL DIFFERENTIALon 2023 BASOPHILS (10*3/UL) IN BLOOD BY CALCULATION 0.01 10*3/uL Normal 0.00-0.20 [facility] Comment on above: Performed By: #### L [id number] ####[facility] ([facility] [place] [address] BASOPHILS/100 LEUKOCYTES IN BLOOD BY AUTOMATED COUNT 0.2 % Normal 0.0-1.0 [facility] Comment on above: Performed By: #### L [id number] ####[facility] ([facility] [place] [address] EOSINOPHILS (10*3/UL) IN BLOOD BY CALCULATION 0.00 10*3/uL Normal 0.00-0.50 [facility] Comment on above: Performed By: #### L [id number] ####[facility] ([facility] [place] [address] EOSINOPHILS/100 LEUKOCYTES IN BLOOD BY AUTOMATED COUNT 0.0 % Normal 0.0-6.0 [facility] Comment on above: Performed By: #### L [id number] ####[facility] ([facility] [place] [address] IMMATURE GRANULOCYTES (10*3/UL) IN BLOOD BY CALCULATION 0.02 10*3/uL Normal 0.00-0.20 [facility] Comment on above: Performed By: #### L [id number] ####[facility] ([facility] [place] [address] IMMATURE GRANULOCYTES/100 LEUKOCYTES IN BLOOD BY AUTOMATED COUNT 0.3 % Normal 0.0-1.0 [facility] Comment on above: Performed By: #### L [id number] ####[facility] ([facility] [place] [address] LYMPHOCYTES (10*3/UL) IN BLOOD BY CALCULATION 0.77 10*3/uL Low 1.20-4.00 [facility] Comment on above: Performed By: #### L [id number] ####[facility] ([facility] [place] [address] LYMPHOCYTES/100 LEUKOCYTES IN BLOOD BY AUTOMATED COUNT 11.9 % Low 20.0-45.0 [facility] Comment on above: Performed By: #### L [id number] ####[facility] ([facility] [place] [address] MONOCYTES (10*3/UL) IN BLOOD BY CALCUATION 0.36 10*3/uL Normal 0.10-1.00 [facility] Comment on above: Performed By: #### L [id number] ####[facility] ([facility] [place] [address] MONOCYTES/100 LEUKOCYTES IN BLOOD BY AUTOMATED COUNT 5.5 % Normal 5.0-12.0 [facility] Comment on above: Performed By: #### L [id number] ####[facility] ([facility] [place] [address] NEUTROPHILS (10*3/UL) IN BLOOD BY CALCULATION 5.3 10*3/uL Normal 1.6-7.6 [facility] Comment on above: Performed By: #### L [id number] ####[facility] ([facility] [place], [place] [address] NEUTROPHILS/100 LEUKOCYTES IN BLOOD BY AUTOMATED COUNT 82.1 % High 40.0-72.0 [facility] Comment on above: Performed By: #### L [id number] ####[facility] ([facility] [place], [place] [address] 30on 09-17-2023 30 The patient is Moder ately Stable - Low risk of patient condition declining or worsening The patient's goals for the shift include COMFORT The clinical goals for the shift include VSS Problem: Pain - Adult Goal: Verbalizes/displays adequate comfort level or baseline comfort level Outcome: Progressing Problem: Safety - Adult Goal: Free from fall injury Outcome: Progressing Normal [facility] 30 The patient is Moder ately Stable - Low risk of patient condition declining or worsening The patient's goals for the shift include COMFORT The clinical goals for the shift include VSS Normal [facility] HPon 09-17-2023 HP H&P reviewed. The pa tient was examined and there are no changes to the H&P. Normal [facility] MRSA/MSSA DNA NASALon 2023 MRSA DNA Negative Normal Negative [facility] Comment on above: Order Comment: Testi ng [...] preclude nasal colonization. Performed By: #### L [id number] ####[facility] ([facility] [place] [address] MSSA DNA Negative Normal Negative [facility] Comment on above: Order Comment: Testi ng [...] preclude nasal colonization. Performed By: #### L [id number] ####[facility] (BEAKER)[address] [place] [address] OPNOTEon 09-17-2023 OPNOTE DAVINCI INCISIONAL H ERNIA REPAIR WITH MESH Operative Note Date: 09/17/2023 Location: [facility] OR Name: Judith Khan, [...] Name Action Serial No. Mesh MESH,SURCIGAL,PROGRIP,[id number] - [id number] Implanted Staff: School Bus Driver/Mechanic: Angelic Conrad RN Relief School Bus Driver/Mechanic: Gay Barnard RN Scrub Person: Carola Chatman, BIOINFORMATICS PROGRAMMER; Rosana Rubi, JORDANA Indications: Judith Khan is an 78 y.o. [...] was desuf (more content not included)... Normal [facility] POCT GLUCOSE METER UNSOLICIT ED RESULTSon 09-17-2023 Glucose [Mass/Vol] 71 mg/dL Normal 70-105 [facility] Comment on above: Order Comment: Waive d Testing in the ED is performed under the ED CLIA certificate #[id number]. Result Comment: jhag eman Performed By: #### L [id number] ####[facility] (BEAKER)[address] [place] [address] SUJEY BY IFA WITH REFLEXon Nuclear Ab Ql (S) Negative Normal Negative [facility] Comment on above: Order Comment: Speci men Type: BLOOD SPECIMENOrdering Facility: [facility] Address: [address] [place] [address] Result Comment: Anti -nuclear antibody test is used as an aid in diagnosis of systemic autoimmune diseases. Where positive and clinically warranted, follow-up using disease-specific testing is recommended. Low positive titers are not uncommon with advanced age, certain chronic infections, and malignancies among others. Test methodology: Indirect fluorescence immunoassay (IFA) using HEp-2 cells. Performed By: #### A NAIFR ####[facility] LABCLIA [id number] [place] [address] [place] CBC W Auto Differential pane l (Bld)on 09-13-2023 Basophils (Bld) [#/Vol] 0.10 10*3/uL <0.11 k/uL [facility] Basophils/100 WBC (Bld) 1.3 % [facility] Differential cell count method Nom (Bld) Auto [facility] Eosinophils (Bld) [#/Vol] 0.67 10*3/uL High <0.46 k/uL [facility] Eosinophils/100 WBC (Bld) 8.4 % [facility] Erythrocyte distribution width (RBC) [Ratio] 14.1 % 11.5 - 15.0 % [facility] Hematocrit (Bld) [Volume fraction] 46.3 % High 36.0 - 46.0 % [facility] Hemoglobin (Bld) [Mass/Vol] 15.3 g/dL 11.5 - 15.5 g/dL [facility] Immature granulocytes (Bld) [#/Vol] <0.10 k/uL [facility] Immature granulocytes/100 WBC (Bld) 0.0 % [facility] Lymphocytes (Bld) [#/Vol] 3.14 10*3/uL 1.00 - 4.00 k/uL [facility] Lymphocytes/100 WBC (Bld) 39.3 % [facility] MCH (RBC) [Entitic mass] 31.4 pg 26.0 - 34.0 pg [facility] MCHC (RBC) [Mass/Vol] 33.0 g/dL 30.5 - 36.0 g/dL [facility] MCV (RBC) [Entitic vol] 94.9 fL 80.0 - 100.0 fL [facility] Monocytes (Bld) [#/Vol] 0.83 10*3/uL <0.87 k/uL [facility] Monocytes/100 WBC (Bld) 10.4 % [facility] Neutrophils (Bld) [#/Vol] 3.26 10*3/uL 1.45 - 7.50 k/uL [facility] Neutrophils/100 WBC (Bld) 40.6 % [facility] Nucleated RBC (Bld) [#/Vol] <0.01 k/uL [facility] Nucleated RBC/100 WBC (Bld) [Ratio] 0.0 /100 WBC [facility] Platelet mean volume (Bld) [Entitic vol] 11.7 fL 9.0 - 12.7 fL [facility] Platelets (Bld) [#/Vol] 296 10*3/uL 150 - 400 k/uL [facility] RBC (Bld) [#/Vol] 4.88 10*6/uL 3.90 - 5.2 0 m/uL [facility] WBC (Bld) [#/Vol] 8.00 10*3/uL 3.70 - 11.00 k/uL [facility] Basophils (Bld) [#/Vol] 0.10 10*3/uL Normal <0.11 [facility] Comment on above: Order Comment: Speci men Type: BLOOD SPECIMENOrdering Facility: [facility] Address: [address] [place] [address] Performed By: #### 5 7021-8, 4537-7 ####[facility] LABCLIA [id number] [place] [address] [place] Basophils/100 WBC (Bld) 1.3 % Normal [facility] Comment on above: Order Comment: Speci men Type: BLOOD SPECIMENOrdering Facility: [facility] Address: [address] [place] [address] Performed By: #### 5 7021-8, 4537-7 ####[facility] LABCLIA [id number] [place] [address] [place] Differential cell count method Nom (Bld) Auto Normal [facility] Comment on above: Order Comment: Speci men Type: BLOOD SPECIMENOrdering Facility: [facility] Address: [address] [place] [address] Performed By: #### 5 7021-8, 4536-7 ####[facility] LABCLIA [id number] [place] [address] [place] Eosinophils (Bld) [#/Vol] 0.67 10*3/uL High <0.46 [facility] Comment on above: Order Comment: Speci men Type: BLOOD SPECIMENOrdering Facility: [facility] Address: [address] [place] [address] Performed By: #### 5 7021-8, 4536-7 ####[facility] LABCLIA [id number] [place] [address] [place] Eosinophils/100 WBC (Bld) 8.4 % Normal [facility] Comment on above: Order Comment: Speci men Type: BLOOD SPECIMENOrdering Facility: [facility] Address: [address] [place] [address] Performed By: #### 5 7021-8, 7 ####[facility] LABCLIA [id number] [place] [address] [place] Erythrocyte distribution width (RBC) [Ratio] 14.1 % Normal 11.5-15.0 [facility] Comment on above: Order Comment: Speci men Type: BLOOD SPECIMENOrdering Facility: [facility] Address: [address] [place] [address] Performed By: #### 5 7021-8, 4536-7 ####[facility] LABCLIA [id number] [place] [address] [place] Hematocrit (Bld) [Volume fraction] 46.3 % High 36.0-46.0 [facility] Comment on above: Order Comment: Speci men Type: BLOOD SPECIMENOrdering Facility: [facility] Address: [address] [place], [place] [id number] Performed By: #### 5 7021-8, 4536-7 ####[facility] LABCLIA [id number] [place] [address] [place] Hemoglobin (Bld) [Mass/Vol] 15.3 g/dL Normal 11.5-15.5 [facility] Comment on above: Order Comment: Speci men Type: BLOOD SPECIMENOrdering Facility: [facility] Address: [address] [place] [address] Performed By: #### 5 7021-8, 4536-7 ####[facility] LABCLIA [id number] [place] [address] [place] Immature granulocytes (Bld) [#/Vol] 10*3/uL Normal <0.10 [facility] Comment on above: Order Comment: Speci men Type: BLOOD SPECIMENOrdering Facility: [facility] Address: [address] [place] [address] Performed By: #### 5 7021-8, 4536-7 ####[facility] LABCLIA [id number] [place] [address] [place] Immature granulocytes/100 WBC (Bld) 0.0 % Normal [facility] Comment on above: Order Comment: Speci men Type: BLOOD SPECIMENOrdering Facility: [facility] Address: [address] [place] [address] Performed By: #### 5 7021-8, 4536-7 ####[facility] LABCLIA [id number] [place] [address] [place] Lymphocytes (Bld) [#/Vol] 3.14 10*3/uL Normal 1.00-4.00 [facility] Comment on above: Order Comment: Speci men Type: BLOOD SPECIMENOrdering Facility: [facility] Address: [address] [place] [address] Performed By: #### 5 7021-8, 4536-7 ####[facility] LABCLIA [id number] [place] [address] [place] Lymphocytes/100 WBC (Bld) 39.3 % Normal [facility] Comment on above: Order Comment: Speci men Type: BLOOD SPECIMENOrdering Facility: [facility] Address: [address] [place] [address] Performed By: #### 5 7021-8, 4537-7 ####[facility] LABIA [id number] [place] [address] [place] MCH (RBC) [Entitic mass] 31.4 pg Normal 26.0-34.0 [facility] Comment on above: Order Comment: Speci men Type: BLOOD SPECIMENOrdering Facility: [facility] Address: [address] [place] [address] Performed By: #### 5 7021-8, 4537-7 ####[facility] LABIA [id number] [place] [address] [place] MCHC (RBC) [Mass/Vol] 33.0 g/dL Normal 30.5-36.0 [facility] Comment on above: Order Comment: Speci men Type: BLOOD SPECIMENOrdering Facility: [facility] Address: [address] [place] [address] Performed By: #### 5 7021-8, 7-7 ####[facility] LABIA [id number] [place] [address] [place] MCV (RBC) [Entitic vol] 94.9 fL Normal 80.0-100.0 [facility] Comment on above: Order Comment: Speci men Type: BLOOD SPECIMENOrdering Facility: [facility] Address: [address] [place] [address] Performed By: #### 5 7021-8, 7-7 ####[facility] LABIA [id number] [id number], [place] [address] [place] Monocytes (Bld) [#/Vol] 0.83 10*3/uL Normal <0.87 [facility] Comment on above: Order Comment: Speci men Type: BLOOD SPECIMENOrdering Facility: [facility] Address: [address] [place] [address] Performed By: #### 5 7021-8, 7-7 ####[facility] LABCLIA [id number] [place] [address] [place] Monocytes/100 WBC (Bld) 10.4 % Normal [facility] Comment on above: Order Comment: Speci men Type: BLOOD SPECIMENOrdering Facility: [facility] Address: [address] [place] [address] Performed By: #### 5 7021-8, 4536-7 ####[facility] LABCLIA [id number] [place] [address] [place] Neutrophils (Bld) [#/Vol] 3.26 10*3/uL Normal 1.45-7.50 [facility] Comment on above: Order Comment: Speci men Type: BLOOD SPECIMENOrdering Facility: [facility] Address: [address] [place] [address] Performed By: #### 5 7021-8, 7-7 ####[facility] LABCLIA [id number] [place] [address] [place] Neutrophils/100 WBC (Bld) 40.6 % Normal [facility] Comment on above: Order Comment: Speci men Type: BLOOD SPECIMENOrdering Facility: [facility] Address: [address] [place] [address] Performed By: #### 5 7021-8, 7-7 ####[facility] LABCLIA [id number] [place] [address] [place] Nucleated RBC (Bld) [#/Vol] 10*3/uL Normal <0.01 [facility] Comment on above: Order Comment: Speci men Type: BLOOD SPECIMENOrdering Facility: [facility] Address: [address] [place] [address] Performed By: #### 5 7021-8, 4537-7 ####[facility] LABIA [id number] [place] [address] [place] Nucleated RBC/100 WBC (Bld) [Ratio] 0.0 /100 WBC Normal [facility] Comment on above: Order Comment: Speci men Type: BLOOD SPECIMENOrdering Facility: [facility] Address: [address] [place] [address] Performed By: #### 5 7021-8, 4537-7 ####[facility] LABIA [id number] [place] [address] [place] Platelet mean volume (Bld) [Entitic vol] 11.7 fL Normal 9.0-12.7 [facility] Comment on above: Order Comment: Speci men Type: BLOOD SPECIMENOrdering Facility: [facility] Address: [address] [place] [address] Performed By: #### 5 7021-8, 4537-7 ####[facility] LABIA [id number] [place] [address] [place] Platelets (Bld) [#/Vol] 296 10*3/uL Normal 150-400 [facility] Comment on above: Order Comment: Speci men Type: BLOOD SPECIMENOrdering Facility: [facility] Address: [address] [place] [address] Performed By: #### 5 7021-8, 7-7 ####[facility] LABIA [id number] [place] [address] [place] RBC (Bld) [#/Vol] 4.88 10*6/uL Normal 3.90-5.20 [facility] Comment on above: Order Comment: Speci men Type: BLOOD SPECIMENOrdering Facility: [facility] Address: [address] [place] [address] Performed By: #### 5 7021-8, 4537-7 ####[facility] LABCLIA [id number] [place] [id number] [place] WBC (Bld) [#/Vol] 8.00 10*3/uL Normal 3.70-11.00 [facility] Comment on above: Order Comment: Speci men Type: BLOOD SPECIMENOrdering Facility: [facility] Address: [address] [id number] Performed By: #### 5 7021-8, 4537-7 ####[facility] LABCLIA [id number] [place] [id number] [place] CNOVon 09-13-2023 CNOV Office Visit (NREUS2 ) JUDITH KHAN ([id number]) 1945 F Date Time Provider Department 09/13/23 [...] Row Office Visit from 09/13/2023 in [facility] T Score 39.8 Global [...] tablet by (more content not included)... Normal [facility] Comprehensive metabolic 2000 panelon 09-13-2023 Albumin [Mass/Vol] 4.3 g/dL 3.9 - 4.9 g/dL [facility] ALP [Catalytic activity/Vol] 92 U/L 34 - 123 U/L [facility] ALT [Catalytic activity/Vol] 14 U/L 7 - 38 U/L [facility] Anion gap [Moles/Vol] 13 mmol/L 9 - 18 mmol/L [facility] AST [Catalytic activity/Vol] 24 U/L 13 - 35 U/L [facility] Bilirubin [Mass/Vol] 0.3 mg/dL 0.2 - 1 .3 mg/dL [facility] Calcium [Mass/Vol] 11.0 mg/dL High 8.5 - 10. 2 mg/dL [facility] Chloride [Moles/Vol] 102 mmol/L 97 - 10 5 mmol/L [facility] CO2 [Moles/Vol] 25 mmol/L 22 - 30 mmol/L [facility] Creatinine [Mass/Vol] 0.95 mg/dL 0.58 - 0.96 mg/dL [facility] Estimated Glomerular Filtration Rate 62 mL/min/1.73m >=60 mL/min/1.73 m [facility] Glucose [Mass/Vol] 84 mg/dL 74 - 99 mg/dL [facility] Potassium [Moles/Vol] 4.0 mmol/L 3.7 - 5.1 mmol/L [facility] Protein [Mass/Vol] 6.7 g/dL 6.3 - 8.0 g/dL [facility] Sodium [Moles/Vol] 140 mmol/L 136 - 144 mmol/L [facility] Urea nitrogen [Mass/Vol] 20 mg/dL 7 - 21 mg/dL [facility] Albumin [Mass/Vol] 4.3 g/dL Normal 3.9-4.9 [facility] Comment on above: Order Comment: Speci men Type: BLOOD SPECIMENOrdering Facility: [facility] Address: [address] [place] [address] Performed By: #### 3 016-3, 31770-3 ####[facility] LABCLIA [id number] [place] [address] [place] ALP [Catalytic activity/Vol] 92 U/L Normal 34-123 [facility] Comment on above: Order Comment: Speci men Type: BLOOD SPECIMENOrdering Facility: [facility] Address: [address] [place] [address] Performed By: #### 3 016-3, 03008-1 ####[facility] LABCLIA [id number] [place] [address] [place] ALT [Catalytic activity/Vol] 14 U/L Normal 7-38 [facility] Comment on above: Order Comment: Speci men Type: BLOOD SPECIMENOrdering Facility: [facility] Address: [address] [place] [address] Performed By: #### 3 016-3, ####[facility] LABCLIA [id number] [place] [address] [place] Anion gap [Moles/Vol] 13 mmol/L Normal 9-18 [facility] Comment on above: Order Comment: Speci men Type: BLOOD SPECIMENOrdering Facility: [facility] Address: [address] [place] [address] Performed By: #### 3 016-3, ####[facility] LABCLIA [id number] [place] [address] [place] AST [Catalytic activity/Vol] 24 U/L Normal 13-35 [facility] Comment on above: Order Comment: Speci men Type: BLOOD SPECIMENOrdering Facility: [facility] Address: [address] [place] [address] Performed By: #### 3 016-3, ####[facility] LABCLIA [id number] [place] [address] [place] Bilirubin [Mass/Vol] 0.3 mg/dL Normal 0.2-1.3 [facility] Comment on above: Order Comment: Speci men Type: BLOOD SPECIMENOrdering Facility: [facility] Address: [address] [place] [address] Performed By: #### 3 016-3, ####[facility] LABCLIA [id number] [place] [address] [place] Calcium [Mass/Vol] 11.0 mg/dL High 8.5-10.2 [facility] Comment on above: Order Comment: Speci men Type: BLOOD SPECIMENOrdering Facility: [facility] Address: [address] [place] [address] Performed By: #### 3 016-3, 16071-2 ####[facility] LABCLIA [id number] [place] [address] [place] Chloride [Moles/Vol] 102 mmol/L Normal 97-105 [facility] Comment on above: Order Comment: Speci men Type: BLOOD SPECIMENOrdering Facility: [facility] Address: [address] [place] [address] Performed By: #### 3 016-3, 76310-6 ####[facility] LABCLIA [id number] [place] [address] [place] CO2 [Moles/Vol] 25 mmol/L Normal 22-30 [facility] Comment on above: Order Comment: Speci men Type: BLOOD SPECIMENOrdering Facility: [facility] Address: [address] [place] [address] Performed By: #### 3 016-3, 51859-7 ####[facility] LABCLIA [id number] [place] [address] [place] Creatinine [Mass/Vol] 0.95 mg/dL Normal 0.58-0.96 [facility] Comment on above: Order Comment: Speci men Type: BLOOD SPECIMENOrdering Facility: [facility] Address: [address] [place] [address] Performed By: #### 3 016-3, 73294-9 ####[facility] LABCLIA [id number] [place] [id number] [place] Creatinine and Glomerular filtration rate.predicted panel (S/P/Bld) 62 mL/min/1.73m??? Normal >=60 [facility] Comment on above: Order Comment: Speci men Type: BLOOD SPECIMENOrdering Facility: [facility] Address: [address] [place] [address] Result Comment: Adrienne mated Glomerular Filtration Rate [...] actual GFR. Performed By: #### 3 016-3, 92710-1 ####[facility] LABCLIA [id number] [place] [address] [place] Glucose [Mass/Vol] 84 mg/dL Normal 74-99 [facility] Comment on above: Order Comment: Mery goodwin Type: BLOOD SPECIMENOrdering Facility: [facility] Address: [address] [place] [address] Result Comment: The [place] Diabetes Association (ADA) provides guidance for cutoff [...] Standards of Medical Care in Diabetes 2016, [place] Diabetes Association. Diabetes Care. 2016.39(Suppl 1). Performed By: #### 3 016-3, 76016-2 ####[facility] LABIA [id number] [place] [id number] [place] Potassium [Moles/Vol] 4.0 mmol/L Normal 3.7-5.1 [facility] Comment on above: Order Comment: Mery goowdin Type: BLOOD SPECIMENOrdering Facility: [facility] Address: [address] [place] [id number] Performed By: #### 3 016-3, 63457-5 ####[facility] LABIA [id number] [place] [id number] [place] Protein [Mass/Vol] 6.7 g/dL Normal 6.3-8.0 [facility] Comment on above: Order Comment: Speci men Type: BLOOD SPECIMENOrdering Facility: [facility] Address: [address] [place] [address] Performed By: #### 3 016-3, 12973-2 ####[facility] LABCLIA [id number] [place] [address] [place] Sodium [Moles/Vol] 140 mmol/L Normal 136-144 [facility] Comment on above: Order Comment: Speci men Type: BLOOD SPECIMENOrdering Facility: [facility] Address: [address] [place] [address] Performed By: #### 3 016-3, 71465-5 ####[facility] LABCLIA [id number] [place] [address] [place] Urea nitrogen [Mass/Vol] 20 mg/dL Normal 7-21 [facility] Comment on above: Order Comment: Speci men Type: BLOOD SPECIMENOrdering Facility: [facility] Address: [address] [place] [address] Performed By: #### 3 016-3, 09431-5 ####[facility] LABCLIA [id number] [place] [address] [place] ESR Westergren method (Bld) [Velocity]on 09-13-2023 ESR (Bld) [Velocity] 10 mm/h 0 - 20 mm/hr [facility] ESR (Bld) [Velocity] 10 mm/h Normal 0-20 [facility] Comment on above: Order Comment: Speci men Type: BLOOD SPECIMENOrdering Facility: [facility] Address: [address] [place] [address] Performed By: #### 5 7021-8, 4537-7 ####[facility] LABCLIA [id number] [place] [address] [place] FOLATE SERUMon 09-13-2023 Folate [Mass/Vol] >4.7 ng/mL [facility] Folate SerPl-mCncon 09-13-19 24 Folate [Mass/Vol] ng/mL Normal >4.7 [facility] Comment on above: Order Comment: Mery goodwin Type: BLOOD SPECIMENOrdering Facility: [facility] Address: [address] [place] [address] Result Comment: A re sult of > 20 ng/mL is not necessarily indicative of a pathologic or treatable condition: it reflects a limitation of the test methodology. Assay reference range: 4.8 to 24.2 ng/mL. Suitable for detection of folate deficiency. Reference: Folate III (Folate III) [package insert V 1.0 Samoan]. [employer], [place], [place]: April 2015. Performed By: #### 2 885-2, 2132-9, 2284-8 ####[facility] LABCLIA [id number] [place] [address] [place] HOMOCYSTEINEon 09-13-2023 Homocysteine [Moles/Vol] 11.3 umol/L <15.1 umol/L [facility] HbA1c (Bld)on 09-13-2023 Average glucose Estimated from glycated hemoglobin (Bld) [Mass/Vol] 103 mg/dL [facility] HbA1c (Bld) [Mass fraction] 5.2 % 4.3 - 5.6 % [facility] Average glucose Estimated from glycated hemoglobin (Bld) [Mass/Vol] 103 mg/dL Normal [facility] Comment on above: Order Comment: Mery goodwin Type: BLOOD SPECIMEN [facility] Address: [address] [place] [address] Result Comment: eAG: (Estimated average glucose) is a calculated value from HgbA1c and is senior sales representative of the average blood glucose level in the last 2-3 month period. Performed By: #### 5 5454-3 #### [facility] CLIA [id number] [address] [place] [address] [place] HbA1c (Bld) [Mass fraction] 5.2 % Normal 4.3-5.6 [facility] Comment on above: Order Comment: Mery goodwin Type: BLOOD SPECIMEN [facility] Address: [address] [place] [address] Result Comment: [place] Diabetes Association guidelines indicate that patients with HgbA1c in the range 5.7-6.4% are at increased risk for development of diabetes, and intervention by lifestyle modification may be beneficial. HgbA1c greater or equal to 6.5% is considered diagnostic of diabetes. Performed By: #### 5 5454-3 #### [facility] CLIA [id number] [address] [place] [address] [place] Hcys SerPl-sCncon 09-13-2023 Homocysteine [Moles/Vol] 11.3 umol/L Normal <15.1 [facility] Comment on above: Order Comment: Mery goodwin Type: BLOOD SPECIMENOrdering Facility: [facility] Address: [address] [place] [address] Performed By: #### 1 3965-9 ####[facility] LABCLIA [id number] [place] [address] [place] Methylmalonate SerPl-sCncon 09-13-2023 Methylmalonate [Moles/Vol] 0.19 umol/L Normal <=0.40 [facility] Comment on above: Order Comment: Mery goodwin Type: BLOOD SPECIMENOrdering Facility: [facility] Address: [address] [place] [address] Result Comment: This test was developed and its performance characteristics determined by [facility]'s [facility] [place] ([facility]). It has not been cleared or approved by the FDA. [facility] is regulated under CLIA as qualified to perform high-complexity testing. This test is used for clinical purposes. It should not be regarded as investigational or for research. Performed By: #### 1 3964-2 ####[facility] LABCLIA [id number] [place] [address] [place] PROTEIN ELECTROPHORESIS SERU M (P)on 09-13-2023 Albumin [Mass/Vol] 4.07 g/dL Normal 3.43-5.41 [facility] Comment on above: Order Comment: Speci men Type: BLOOD SPECIMENOrdering Facility: [facility] Address: [address] [place] [address] Performed By: #### L [id number] ####[facility] LABCLIA [id number] [place] [address] [place] Alpha 1 globulin Elph [Mass/Vol] 0.37 g/dL Normal 0.18-0.43 [facility] Comment on above: Order Comment: Speci men Type: BLOOD SPECIMENOrdering Facility: [facility] Address: [address] [place] [address] Performed By: #### L [id number] ####[facility] LABIA [id number] [place] [address] [place] Alpha 2 globulin Elph [Mass/Vol] 0.70 g/dL Normal 0.42-0.98 [facility] Comment on above: Order Comment: Speci men Type: BLOOD SPECIMENOrdering Facility: [facility] Address: [address] [place] [address] Performed By: #### L [id number] ####[facility] LABIA [id number] [place] [address] [place] Beta globulin Elph [Mass/Vol] 0.69 g/dL Normal 0.61-1.17 [facility] Comment on above: Order Comment: Speci men Type: BLOOD SPECIMENOrdering Facility: [facility] Address: [address] [place] [address] Performed By: #### L [id number] ####[facility] LABIA [id number] [place] [address] [place] Gamma globulin Elph [Mass/Vol] 0.57 g/dL Normal 0.53-1.51 [facility] Comment on above: Order Comment: Speci men Type: BLOOD SPECIMENOrdering Facility: [facility] Address: [address] [place] [address] Performed By: #### L [id number] ####[facility] LABIA [id number] [place] [address] [place] M-PROTEIN LOCATION Normal [facility] Comment on above: Order Comment: Speci men Type: BLOOD SPECIMENOrdering Facility: [facility] Address: [address] [place] [address] Result Comment: Not Applicable. Performed By: #### L [id number] ####[facility] LABIA [id number] [place] [address] [place] Protein Fractions [Interp] No definitive M protein is identified on protein electrophoresis. Normal No definitive M protein is identified on protein electrophor esis. [facility] Comment on above: Order Comment: Speci men Type: BLOOD SPECIMENOrdering Facility: [facility] Address: [address] [place] [address] Performed By: #### L [id number] ####[facility] LABIA [id number] [place] [address] [place] Protein.monoclonal Elph [Mass/Vol] 0.00 g/dL Normal <=0.00 [facility] Comment on above: Order Comment: Speci men Type: BLOOD SPECIMENOrdering Facility: [facility] Address: [address] [place] [address] Performed By: #### L [id number] ####[facility] LABIA [id number] [place] [address] [place] SPE STAFF REVIEW Reviewed by Dr. Lelo Santiago MD Normal [facility] Comment on above: Order Comment: Speci men Type: BLOOD SPECIMENOrdering Facility: [facility] Address: [address] [place] [address] Performed By: #### L [id number] ####[facility] LABIA [id number] [place] [address] [place] Prot SerPl-mCncon 09-13-2023 Protein [Mass/Vol] 6.4 g/dL Normal 6.3-8.0 [facility] Comment on above: Order Comment: Speci men Type: BLOOD SPECIMENOrdering Facility: [facility] Address: [address] [place] [address] Performed By: #### 2 885-2, 2132-9, 2284-8 ####[facility] LABIA [id number] [place] [address] [place] Prot Ur-mCncon 09-13-2023 Protein (U) [Mass/Vol] 6 mg/dL Normal 0-20 [facility] Comment on above: Order Comment: Speci men Type: URINE SPECIMENOrdering Facility: [facility] Address: [address] [place] [address] Performed By: #### 2 888-6 ####[facility] LABIA [id number] [place] [address] [place] TSH BLDon 09-13-2023 TSH Qn 0.911 m[IU]/L 0.270 - 4.200 mIU/L [facility] TSH SerPl-aCncon 09-13-2023 TSH Qn 0.911 m[IU]/L Normal 0.270-4.200 [facility] Comment on above: Order Comment: Speci men Type: BLOOD SPECIMENOrdering Facility: [facility] Address: [address] [place] [address] Performed By: #### 3 016-3, 83018-9 ####[facility] LABIA [id number] [place] [address] [place] URINE PROTEIN ELECTROPHORESI S RANDOM (P)on 09-13-2023 Albumin Elph (U) [Mass fraction] 42.54 % Normal [facility] Comment on above: Order Comment: Speci men Type: URINE SPECIMENOrdering Facility: [facility] Address: [address] [place] [address] Performed By: #### L [id number] ####[facility] LABCLIA [id number] [place] [address] [place] Alpha 1 globulin Elph (U) [Mass fraction] 5.38 % Normal [facility] Comment on above: Order Comment: Speci men Type: URINE SPECIMENOrdering Facility: [facility] Address: [address] [place] [address] Performed By: #### L [id number] ####[facility] LABIA [id number] [place] [address] [place] Alpha 2 globulin Elph (U) [Mass fraction] 16.91 % Normal [facility] Comment on above: Order Comment: Speci men Type: URINE SPECIMENOrdering Facility: [facility] Address: [address] [place] [address] Performed By: #### L [id number] ####[facility] LABIA [id number] [place] [address] [place] Beta globulin Elph (U) [Mass fraction] 24.59 % Normal [facility] Comment on above: Order Comment: Speci men Type: URINE SPECIMENOrdering Facility: [facility] Address: [address] [place] [address] Performed By: #### L [id number] ####[facility] LABCLIA [id number] [place] [address] [place] Gamma globulin Elph (U) [Mass fraction] 10.58 % Normal [facility] Comment on above: Order Comment: Speci men Type: URINE SPECIMENOrdering Facility: [facility] Address: [address] [place] [address] Performed By: #### L [id number] ####[facility] LABIA [id number] [place] [address] [place] INTERPRETATION COMMENT FOR PROTEIN ELECTROPHORESIS The absence of M-protein on urine protein electrophoresis does not entirely exclude the presence of monoclonal gammopathy in urine. Monoclonal protein analysis (immunofixation), a more definitive test to exclude monoclonal gammopathy, may be requested on this specimen if clinically indicated. Normal [facility] Comment on above: Order Comment: Speci men Type: URINE SPECIMENOrdering Facility: [facility] Address: [address] [place] [address] Performed By: #### L [id number] ####[facility] [id number] [place] [address] [place] Protein Fractions Elph Brandt (U) [Interp] No definitive M protein is identified on protein electrophoresis. Normal No definitive M protein is identified on protein electrophor esis. [facility] Comment on above: Order Comment: Speci men Type: URINE SPECIMENOrdering Facility: [facility] Address: [address] [place] [address] Performed By: #### L [id number] ####[facility] [id number] [address] [place] STAFF REVIEW (URINE ELECTRO) Reviewed by Dr. Richard Santiago MD Normal [facility] Comment on above: Order Comment: Speci men Type: URINE SPECIMENOrdering Facility: [facility] Address: [address] [place] [address] Performed By: #### L [id number] ####[facility] [id number] [place] [address] [place] VITAMIN B12 BLOODon 09-13-19 24 Cobalamin (Vitamin B12) [Mass/Vol] 939 pg/mL 232 - 1,245 pg/mL [facility] Vit B12 SerPl-mCncon 024 Cobalamin (Vitamin B12) [Mass/Vol] 939 pg/mL Normal 232-1245 [facility] Comment on above: Order Comment: Speci men Type: BLOOD SPECIMENOrdering Facility: [facility] Address: [address] [place] [address] Performed By: #### 2 885-2, 2132-9, 2284-8 ####[facility] LABCLIA [id number] [place] [address] [place] Orders Onlyon 09-11-2023 Orders Only [id number] Donato Khan 1945 F Date Provider Department Center 09/11/2023 Corazon-VERENA SHEEHAN [facility] Family History Problem Relation Age of Onset Stroke Mother Stroke Brother Other Mother's Sister Coronary artery disease Mother's Sister Stroke Maternal Grandmother Family Status - Relation Status Age at Mother Brother Mother's Sister Maternal Grandmother [facility] [id number] 09-10-2023 [id number] PT HOLDING ASPIRIN P ER DR SHEEHAN ON 09/09 MEDICATIONS TO TAKE DAY OF SURGERY WITH SIP OF WATER XANAX AMLODIPINE GABAPENTIN ISOSORBIDE PROTONIX PT DAUGHTER AGREES TO TAKE PT TO [facility] FOR LABS ON 09/10 LAB ORDERS FAXED TO [phone] HOLD VITAMINS AND SUPPLEMENTS 5 DAYS PRIOR TO PROCEDURE HOLD ALL ANTI INFLAMMATORIES ETC:MOTRIN, ADVIL, ALEVE, FOR 5 DAYS PRIOR TO PROCEDURE IF YOU ARE GOING HOME AFTER YOUR SURGERY OR PROCEDURE, FOR YOUR SAFETY, YOUR SURGERY WILL BE CANCELLED IF BOTH OF THE FOLLOWING ARE NOT AVAILABLE: 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 Do not wear perfume, make-up, nail south african, or lotions on the day of your [...] need to make any changes, please call [phone]. Notify your surgeon if you develop any illness such as a cold, cough, fever, sore throat or vomiting between now and your surgery. Thank you for entrusting us with your care. [facility] Surgical Services Team [facility] Telephoneon 09-10-2023 Telephone [id number] Donato Khan en A 1945 Date Provider Department Center 09/10/2023 KERWIN ABDI [facility]G [place] Family History Problem Relation Age of Onset Stroke Mother Stroke Brother Other Mother's Sister Coronary artery disease Mother's Sister Stroke Maternal Grandmother Family Status - Relation Status Age at Mother Brother Mother's Sister Maternal Grandmother Reason for Visit and Comments: telephone [Other] [facility] Documentationon 08-27-2023 Documentation [id number] Donato Khan en A 1945 Date Provider Department Center 08/27/2023 MILA SORIA [facility]. Family History Problem Relation Age of Onset Stroke Mother Stroke Brother Other Mother's Sister Coronary artery disease Mother's Sister Stroke Maternal Grandmother Family Status - Relation Status Age at Mother Brother Mother's Sister Maternal Grandmother [facility] HPon 08-22-2023 HP Subjective Patient ID: Judith [...] time. (ESOPHAGOGASTRODUODENOSCOPY) Operative Note Date: 08/13/2023 Location: [facility] OR Name: Judith Khan, : 1945, Diagnosis Pre-op Diagnosis * Hiatal hernia [K44.9] Post-op Diagnosis * Chronic gastric ulcer without hemorrhage and without perforation [K25.7] Procedures EGD (ESOPHAGOGASTRODUODENOSCOPY) 46663 - [place] ESOPHAGOGASTRODUODENOSCOPY [facility] Sur[facility] * Verena Sheehan - Primary Procedure Summary Anesthesia: Monitor Anesthesia Care ASA: III Estimated Blood Loss: Minimal Total IV Fluids: 500 mL Drains: * None in log * Staff: School Bus Driver/Mechanic: Jian Kat RN Scrub Person: Eva Zambrano [...] NOTE Patient: Judith Khan : 1945 Facility: [facility] Referring/PCP: Kavon Sams MD Procedure: Esophagogastroduodenoscopy --diagnostic [...] 1. -Follow up with me. 2. -PPIs [phone] pager [phone] Assessment/Plan Incisional hernia Gastric ulcer Robotic incisional hernia repair with mesh Cardiac clearance PPIs No diagnosis found. No orders of the defined types were placed in this encounter. No results found for this or any previous visit (from the past 36 hour(s)). No follow-ups on file. [facility] Office Visiton 03-13-2024 Follow-up visit [id number] Donato Khan 1945 F Date Provider Department Center 08/22/2023 Coarzon-SHEEHANVERENA [facility] SURG [place] Family History Problem Relation Age of Onset Stroke Mother Stroke Brother Other Mother's Sister Coronary artery disease Mother's Sister Stroke Maternal Grandmother Family Status - Relation Status Age at Mother Brother Mother's Sister Maternal Grandmother Level of Service:06223 [place] OFFICE/OUTPATIENT ESTABLISHED MOD MDM 30 MIN Reason for Visit and Comments: Post-op [483] - Judith is here today for a post op visit for a hiatal hernia, s/p 08/13/[address] [facility] MR head/brain wo/w conon MR head/brain wo/w con [facility] [place] [address] [place] [address] MRI Report Signed Patient: Judith Khan MR#: [id number] : 1945 Acct:[id number] Age/Sex: 78 / F ADM Date: 08/14/23 Loc: [facility] Room: Type: [facility] Attending Dr: Giovanni COLIN Copies to: DIXIE [...] Guerrero Jr., D.ORatna08/14/2023 3:44 PM Dictation Location: [place] [address] Transcribed By: [facility] 08/14/23 1544 Dictated By: Ramsey Guerrero Jr, DO 08/14/23 1536 Signed By: 08/14/23 [address] [facility] [address] ABDOMEN WO IV CONTRASTon 08-13-2023 [...] calculus. *Chronic lung disease. Electronically signed: Ernie Llanos Invalid Interpretation Code [facility] Comment on above: Order Comment: With oral contrast OPNOTEon 08-13-2023 OPNOTE EGD (ESOPHAGOGASTRODUODENOSCOPY) Operative Note Date: 08/13/2023 Location: [facility] OR Name: Judith Davis Emery, : 1945, Diagnosis Pre-op Diagnosis * Hiatal hernia [K44.9] Post-op Diagnosis * Chronic gastric ulcer without hemorrhage and without perforation [K25.7] Procedures EGD (ESOPHAGOGASTRODUODENOSCOPY) 54860 - [place] ESOPHAGOGASTRODUODENOSCOPY [facility] Sur[facility] * Verena Sheehan - Primary Procedure Summary Anesthesia: Monitor Anesthesia Care ASA: III Estimated Blood Loss: Minimal Total IV Fluids: 500 mL Drains: * None in log * Staff: School Bus Driver/Mechanic: Jian Kat RN Scrub Person: Eva Zambrano [...] NOTE Patient: Judith Khan : 1945 Facility: [facility] Referring/PCP: Kavon Sams MD Procedure: Esophagogastroduodenoscopy --diagnostic [...] particles Recommendations: 1. -Follow up with me. [phone] pager [phone] [facility] OPNOTE EGD (ESOPHAGOGASTRODUODENOSCOPY) Operative Note Date: 08/13/2023 Location: [facility] OR Name: Judith Khan, : 1945, Diagnosis Pre-op Diagnosis * Hiatal hernia [K44.9] Post-op Diagnosis * Chronic gastric ulcer without hemorrhage and without perforation [K25.7] Procedures EGD (ESOPHAGOGASTRODUODENOSCOPY) 38356 - [place] ESOPHAGOGASTRODUODENOSCOPY [facility] Surgeons * Verena Sheehan - Primary Procedure Summary Anesthesia: Monitor Anesthesia Care ASA: III Estimated Blood Loss: Minimal Total IV Fluids: 500 mL Drains: * None in log * Staff: School Bus Driver/Mechanic: Jian Kat RN Scrub Person: Eva Zambrano [...] NOTE Patient: Judith Khan : 1945 Facility: [facility] Referring/PCP: Kavon Sams MD Procedure: Esophagogastroduodenoscopy --diagnostic [...] 1. -Follow up with me. 2. -PPIs [phone] pager [phone] [facility] POCT GLUCOSE METER UNSOLICIT ED RESULTSon 08-13-2023 Glucose [Mass/Vol] 85 mg/dL Normal 70-105 [facility] Comment on above: Order Comment: Waive d Testing in the ED is performed under the ED CLIA certificate #[id number]. Result Comment: [facility] jamar Performed By: #### L [id number] #### [facility] ([facility]) [address] [place] [address] Office Visiton 08-07-2023 Follow-up visit [id number] Donato Khan 1945 F Date Provider Department Center 08/07/2023 Corazon-VERENA SHEEHAN [facility] SURG [place] Family History Problem Relation Age of Onset Stroke Mother Stroke Brother Other Mother's Sister Coronary artery disease Mother's Sister Stroke Maternal Grandmother Family Status - Relation Status Age at Mother Brother Mother's Sister Maternal Grandmother Level of Service:29854 [place] OFFICE/OUTPATIENT NEW LOW MDM 30 MINUTES Reason for Visit and Comments: New Patient [632] - Judith is here as a new patient for hiatal hernia, s/p ecko [facility] C Urineon 07-18-2023 Bacteria identified Cx Nom (U) Microbiology PROCEDURE: Urine Culture [R1] SOURCE: U CleanCatch BODY SITE: COLLECTED DATE/TIME: 07/16/2023 12:49 EST RECEIVED DATE/TIME: 07/16/2023 13:50 EST START DATE/TIME: 07/16/2023 13:50 EST FREE TEXT SOURCE: Demarco Beaver DO, DO, Kevin M. FINAL REPORTS Final Report [] Verified Date/Time: 07/18/2023 10:53 EST <10,000 cfu/ml Mixed skin contaminants Mixed nida (multiple species present) Performing Locations R1: This test was performed at: [facility], [address] [place] [address], [address]- , , Normal [facility] Comment on above: Performed By: #### 2 252180, [id number] #### [facility] [address] [place] [address] BMPon 07-16-2023 Anion gap [Moles/Vol] 14 mmol/L Normal 6-16 [facility] Comment on above: Performed By: #### 2 125190, [id number] #### [facility] [address] [place] [address] BUN/Creat Ratio 22 No Units High 10-20 [facility] Comment on above: Performed By: #### 2 899129, [id number] #### [facility] [address] [place] [address] Calcium [Mass/Vol] 11.6 mg/dL High 8.9-11.1 [facility] Comment on above: Performed By: #### 2 030356, [id number] #### [facility] [address] [place] [address] Chloride [Moles/Vol] 105 mmol/L Normal 101-111 [facility] Comment on above: Performed By: #### 2 782212, [id number] #### [facility] [address] [place] [address] CO2 [Moles/Vol] 26 mmol/L Normal 21-31 [facility] Comment on above: Performed By: #### 2 510322, [id number] #### [facility] [address] [place] [address] Creatinine [Mass/Vol] 0.9 mg/dL Normal 0.5-1.3 [facility] Comment on above: Performed By: #### 2 430024, [id number] #### [facility] [address] [place] [address] Glucose [Mass/Vol] 87 mg/dL Normal 55-199 [facility] Comment on above: Performed By: #### 2 009142, [id number] #### [facility] [address] [place] [address] Potassium [Moles/Vol] 4.0 mmol/L Normal 3.5-5.3 [facility] Comment on above: Performed By: #### 2 960728, [id number] #### [facility] [address] [place] [address] Sodium [Moles/Vol] 141 mmol/L Normal 135-145 [facility] Comment on above: Performed By: #### 2 456549, [id number] #### [facility] [address] [place] [address] Urea nitrogen [Mass/Vol] 20 mg/dL Normal 5-21 [facility] Comment on above: Performed By: #### 2 131543, [id number] #### [facility] [address] [place] [address] CBC w/ Auto Diffon 4 Basophil Absolute 0.1 E9/L Normal 0.0-0.2 [facility] Comment on above: Performed By: #### 2 896355, [id number] #### [facility] [address] [place] [address] Basophils/100 WBC (Bld) 1.1 % Normal 0.0-2.0 [facility] Comment on above: Performed By: #### 2 647989, [id number] #### [facility] [address] [place] [address] Eos Absolute 0.2 E9/L Normal 0.0-0.5 [facility] Comment on above: Performed By: #### 2 533022, [id number] #### [facility] [address] [place] [address] Eosinophils/100 WBC (Bld) 1.7 % Normal 0.0-8.0 [facility] Comment on above: Performed By: #### 2 789789, [id number] #### [facility] [address] [place] [address] Erythrocyte distribution width (RBC) [Ratio] 13.5 % Normal 10.9-14.2 [facility] Comment on above: Performed By: #### 2 297767, [id number] #### [facility] [address] [place] [address] Hematocrit (Bld) [Volume fraction] 43.0 % Normal 34.0-46.0 [facility] Comment on above: Performed By: #### 2 302259, [id number] #### [facility] [address] [place] [address] Hemoglobin (Bld) [Mass/Vol] 14.3 g/dL Normal 12.0-16.0 [facility] Comment on above: Performed By: #### 2 331660, [id number] #### [facility] [address] [place] [address] Lymph Absolute 3.4 E9/L Normal 1.0-4.0 [facility] Comment on above: Performed By: #### 2 425808, [id number] #### [facility] [address] [place] [address] Lymphocytes/100 WBC (Bld) 38.0 % Normal 14.0-50.0 [facility] Comment on above: Performed By: #### 2 243177, [id number] #### [facility] [address] [place] [address] MCH (RBC) [Entitic mass] 30.9 pg Normal 27.0-34.0 [facility] Comment on above: Performed By: #### 2 920938, [id number] #### [facility] [address] [place] [address] MCHC (RBC) [Mass/Vol] 33.0 g/dL Normal 31.4-36.0 [facility] Comment on above: Performed By: #### 2 921172, [id number] #### [facility] [address] [place] [address] MCV (RBC) [Entitic vol] 93.5 fL Normal 80.0-100.0 [facility] Comment on above: Performed By: #### 2 636914, [id number] #### [facility] [address] [place] [address] [place] Absolute 1.2 E9/L High 0.2-1.0 [facility] Comment on above: Performed By: #### 2 704756, [id number] #### [facility] [address] [place] [address] Monocytes/100 WBC (Bld) 12.9 % Normal 4.0-14.0 [facility] Comment on above: Performed By: #### 2 793492, [id number] #### [facility] [address] [place] [address] Neutro Absolute 4.2 E9/L Normal 2.0-7.5 [facility] Comment on above: Performed By: #### 2 251637, [id number] #### [facility] [address] [place] [id number] Neutro Auto 46.3 % Normal 36.0-75.0 [facility] Comment on above: Performed By: #### 2 155421, [id number] #### [facility] [address] [place] [address] Platelet 325.0 E9/L Normal 150.0-500.0 [facility] Comment on above: Performed By: #### 2 524385, [id number] #### [facility] [address] [place] [address] Platelet mean volume (Bld) [Entitic vol] 9.3 fL Normal 6.4-10.8 [facility] Comment on above: Performed By: #### 2 650692, [id number] #### [facility] [address] [place] [address] RBC 4.6 E12/L Normal 4.3-5.9 [facility] Comment on above: Performed By: #### 2 487512, [id number] #### [facility] [address] [place] [address] WBC 9.0 E9/L Normal 4.0-11.0 [facility] Comment on above: Performed By: #### 2 155706, [id number] #### [facility] [address] [place] [id number] CHEMISTRYOrdered By: SYSTEM SYSTEM on 07-16-2023 Troponin [...] Instructions For Use, Jacques Ceci, January 2018) Anion gap [Moles/Vol] 14 mmol/L [...] Instructions For Use, Jacques Ceci, January 2018) Urea nitrogen [Mass/Vol] 20 mg/dL Normal 5 - 21 mg/dL Remisol Chem Urea nitrogen/Creatinine [Mass ratio] 22 mg/mg High 10 - 20 Remisol Chem Consent for Treatmenton Consent for Treatment [id number] Normal [facility] Discharge Instructionson Discharge Instructions [id number] Normal [facility] ED Clinical Summaryon 2023 ED Clinical Summary (Inserted Image. Jenni ble to display) [address] [address] ED Clinical Summary Person Information Name: JUDITH KHAN [place] Age: 78 Years : 1945 Sex: Female Language: Samoan PCP: Kavon Sams MD Marital Status: Visit [...] 07/16/2023 15:44:31 07/16/2023 15:44:31 07/16/2023 15:44:31 ADDRESS: [address] [place] [id number] [facility] DOC NOTES: MEDICAL INFORMATION: Prescriptions Given: Medications [...] up: With: Address: When: Kavon Sams [address] [facility] [facility], [address] [place] [id number] Business (1) In 3 days 07/19/2023 DIAGNOSIS: Weakness Normal [facility] ED Note-Physicianon 07-16-19 ED Note-Physician Basic [...] Information Kavon Sams In 3 days 07/19/[address] Business (1) Additional Instructions: Patient Education [...] made to ensure accuracy, however, inadvertently computerized power grader operator mistakes may be present. Appropriate healthcare PPE [...] 11:50:00) MC (more content not included)... Normal [facility] Comment on above: Result Comment: Elec [...] Consider working with a physical therapist or physical trainer who can develop an exercise plan to help you gain muscle strength. General instructions ? Take rkih-qph-wbpvgsa and prescription medicines only as told by [...] Reviewed: 04/30/2022 Elsevier Patient Education ? 2022 [employer] Normal [facility] ED Patient Summaryon 024 ED Patient Summary (Inserted Image. Jenni ble to display) [address] [address] Patient Discharge Instructions Person Information Name: JUDITH KHAN Age: 78 Years Arrival Date: 07/16/2023 11:33:16 Discharge Diagnosis: Weakness Primary Care Physician: Kavon Sams MD Provider Information Primary Provider: Demarco Beaver DO Advanced Occupancy Specialist:Leighton Fernandes PA-C The exam and treatment you received in the Emergency Department were for an urgent problem and are not intended as complete care. It is important that you follow up with a doctor, nurse practitioner, or physician?s enrichment assistant for ongoing care. If your symptoms become worse or you do not improve as expected and you are unable to reach your usual health care provider, you should return to the Emergency Department. We are available 24 hours a day. JUDITH KHAN has been given the following list of patient education materials, prescriptions and follow-up instructions: Follow-up Instructions: With: Address: When: Kavon Marcialchirag [address] [place] [address], [place] [address] Business (1) In 3 days 07/19/2023 In the event that this physician does not participate in your insurance network, please consult with your insurance company to find a nearby participating provider. Patient Education Materials: Weakness A MESSAGE TO ALL PATIENTS REGARDING OPIOIDS PRESCRIPTION OPIOIDS: WHAT YOU NEED TO KNOW Prescription opioids can be used to help relieve cibjszug-ym-twwgpw pain and are often prescribed following a [...] be struggling with addiction, tell your health skin care instructor and ask for guidance or call [facility]?S National Helpline at 0-327-422-EJMX. v Source: [place] Department of Health a (more content not included)... Normal [facility] HEMATOLOGYOrdered By: SYSTEM SYSTEM on 07-16-2023 Basophil [...] Normal 80.0 - 100.0 fL Remisol Heme [place] Absolute 1.2 E9/L High 0.2 - 1.0 [...] Hr.on 07-16-2023 Troponin 21.20 pg/mL Normal 10.10-27.10 [facility] Comment on above: Result Comment: The 95% CI (Confidence Interval) PPV (Positive Predictive Value) for myocardial infarction in females is 38 pg/mL, in males 51 pg/mL. The results should be used in conjunction with clinical conditions of myocardial infarction. (Access High Sensitivity Troponin I Instructions For Use, [employer], January 2018) Performed By: #### 2 827468, [id number] #### [facility] [address] [place] [address] Troponin 3 Hr.on 07-16-2023 Troponin 19.60 pg/mL Normal 10.10-27.10 [facility] Comment on above: Result Comment: The 95% CI (Confidence Interval) PPV (Positive Predictive Value) for myocardial infarction in females is 38 pg/mL, in males 51 pg/mL. The results should be used in conjunction with clinical conditions of myocardial infarction. (Access High Sensitivity Troponin I Instructions For Use, [employer], January 2018) Performed By: #### 1 [id number] #### [facility] [address] [place] [address] UA With Cult Reflexon 2023 Bacteria LM Ql (Urine sed) TRACE Normal Trace [facility] Comment on above: Performed By: #### 2 544515, [id number] #### [facility] [address] [place] [address] Bilirubin Ql (U) Negative Normal Negative [facility] Comment on above: Performed By: #### 2 995715, [id number] #### [facility] [address] [place] [address] Clarity (U) CLEAR Normal Clear [facility] Comment on above: Performed By: #### 2 816809, [id number] #### [facility] [address] [place] [address] Color (U) YELLOW Normal Yellow [facility] Comment on above: Performed By: #### 2 047329, [id number] #### [facility] [address] [place] [address] Crystals LM Ql (Urine sed) Present Normal [facility] Comment on above: Performed By: #### 2 907535, [id number] #### [facility] [address] [place] [address] Epithelial cells.squamous LM.HPF (Urine sed) [#/Area] 0-2 Normal 0-2 [facility] Comment on above: Performed By: #### 2 305958, [id number] #### [facility] [address] [place] [address] Glucose Test strip (U) [Mass/Vol] Negative Normal Negative [facility] Comment on above: Performed By: #### 2 518766, [id number] #### [facility] [address] [place] [address] Hemoglobin Ql (U) Negative Normal Negative [facility] Comment on above: Performed By: #### 2 737206, [id number] #### [facility] [address] [place] [address] Ketones (U) [Mass/Vol] Negative Normal Negative [facility] Comment on above: Performed By: #### 2 933776, [id number] #### [facility] [address] [place] [address] [place].plasma/Lithi um.RBC (Bld) [Mass ratio] 0-3 Normal 0-3 [facility] Comment on above: Performed By: #### 2 795748, [id number] #### [facility] [address] [place] [address] Nitrite Ql (U) Negative Normal Negative [facility] Comment on above: Performed By: #### 2 820050, [id number] #### [facility] [address] [place] [address] pH (U) 7.0 [pH] Invalid Interpretation Code 5.0-9.0 [facility] Comment on above: Performed By: #### 2 000497, [id number] #### [facility] [address] [place] [address] Protein (U) [Mass/Vol] Negative Normal Negative [facility] Comment on above: Performed By: #### 2 659105, [id number] #### [facility] [address] [place] [address] Specific gravity (U) [Rel density] 1.015 Invalid Interpretation Code 1.005-1.030 [facility] Comment on above: Performed By: #### 2 193019, [id number] #### [facility] [address] [place] [address] Type of Urine collection method Clean Catch Normal [facility] Comment on above: Performed By: #### 2 [id number], [id number] #### [facility] [address] [place] [address] Urobilinogen Qn (U) 0.2 {Phoebe'U}/dL Normal 0.0-1.0 [facility] Comment on above: Performed By: #### 2 [id number], [id number] #### [facility] [address] [place] [address] WBC Auto Ql (U) 1+ Abnormal Negative [facility] Comment on above: Performed By: #### 2 661910, [id number] #### [facility] [address] [place] [address] WBC LM.HPF (Urine sed) [#/Area] 0-5 Normal 0-5 [facility] Comment on above: Performed By: #### 2 828504, [id number] #### [facility] [address] [place] [address] URINALYSISOrdered By: Ravi Guzman on 07-16-2023 Bacteria LM Ql (Urine sed) Trace /HPF Normal Trace/HPF [facility] UA Auto SS Bilirubin Ql (U) Negative (07/16/23 12:49 PM) Normal Negative [facility] UA Auto SS Clarity (U) Clear (07/16/23 12:49 PM) Normal Clear [facility] UA Auto SS Color (U) Yellow (07/16/23 [...] PM) Normal Negative [facility] UA Auto SS [place].plasma/Lithi um.RBC (Bld) [Mass ratio] 0-3 /HPF Normal [...] [facility] UA Auto SS Urobilinogen Qn (U) 0.5076606 {Phoebe'U}/dL Normal 0.0 - 1.0 EU/dL [facility] UA Auto SS WBC Auto Ql (U) 1+ *ABN* (07/16/23 12:49 PM) Invalid Interpretation Code Negative [facility] UA Auto SS WBC LM.HPF (Urine sed) [#/Area] 0-5 /HPF Normal 0-5/HPF [facility] UA Auto SS eGFRon 07-16-2023 eGFR 66 mL/min/1.73 m2 Normal >=59 [facility] Comment on above: Order Comment: Order added by Discern Expert. Performed By: #### 2 835576, [id number] #### [facility] [address] [address] Office Visiton 07-06-2023 Follow-up visit [id number] Donato Khan 1945 F Date Provider Department Center 07/06/2023 MILA SORIA CARD [facility] Family History Problem Relation Age of Onset Stroke Mother Stroke Brother Other Mother's Sister Coronary artery disease Mother's Sister Stroke Maternal Grandmother Family Status - Relation Status Age at Mother Brother Mother's Sister Maternal Grandmother Level of Service:87359 GA OFFICE/OUTPATIENT ESTABLISHED MOD MDM 30 MIN Normal [facility] C Urineon 06-25-2023 Bacteria identified Cx Nom [...] Locations R1: This test was performed at: [facility], [address] [place] [address], [address]- , , Normal [facility] Comment on above: Performed By: #### 1 [id number], [id number] #### [facility] [address] [place] [address] UA With Cult Reflexon 2023 UA Spec Desc Catheter Normal [facility] Comment on above: Result Comment: Mini cath specimen Performed By: #### 1 [id number], [id number] #### [facility] [address] [place] [address] Discharge Instructionson Discharge Instructions [id number] Normal [facility] Message from Medicareon 06-11 Message from Medicare [id number]#1.00TIFF Normal [facility] Auto Diffon 06-23-2023 Basophils/100 WBC (Bld) 0.4 % Normal 0.0-2.0 [facility] Comment on above: Order Comment: Order Added by Discern Expert. Performed By: #### 2 093190, [id number] #### [facility] [address] [place] [address] Basophils/Leukocytes Auto (Bld) [Pure # fraction] 0.1 E9/L Normal 0.0-0.2 [facility] Comment on above: Order Comment: Order Added by Discern Expert. Performed By: #### 2 540897, [id number] #### [facility] [address] [place] [address] Eosinophils/100 WBC (Bld) 0.8 % Normal 0.0-8.0 [facility] Comment on above: Order Comment: Order Added by Yoli Expert. Performed By: #### 2 048654, [id number] #### [facility] [address] [place] [address] Eosinophils/Leukocyt es Auto (Bld) [Pure # fraction] 0.1 E9/L Normal 0.0-0.5 [facility] Comment on above: Order Comment: Order Added by Yoli Expert. Performed By: #### 2 497839, [id number] #### [facility] [address] [place] [address] Lymphocytes/100 WBC (Bld) 15.1 % Normal 14.0-50.0 [facility] Comment on above: Order Comment: Order Added by Yoli Expert. Performed By: #### 2 663971, [id number] #### [facility] [address] [place] [address] Lymphocytes/Leukocyt es Auto (Bld) [Pure # fraction] 2.2 E9/L Normal 1.0-4.0 [facility] Comment on above: Order Comment: Order Added by Yoli Expert. Performed By: #### 2 676160, [id number] #### [facility] [address] [place] [address] Monocytes/100 WBC (Bld) 11.3 % Normal 4.0-14.0 [facility] Comment on above: Order Comment: Order Added by Discern Expert. Performed By: #### 2 933322, [id number] #### [facility] [address] [place] [address] Monocytes/Leukocytes Auto (Bld) [Pure # fraction] 1.6 E9/L High 0.2-1.0 [facility] Comment on above: Order Comment: Order Added by Discern Expert. Performed By: #### 2 921933, [id number] #### [facility] [address] [place] [address] Neutrophils/100 WBC (Bld) 72.4 % Normal 36.0-75.0 [facility] Comment on above: Order Comment: Order Added by Discern Expert. Performed By: #### 2 666125, [id number] #### [facility] [address] [place] [address] Neutrophils/Leukocyt es Auto (Bld) [Pure # fraction] 10.5 E9/L High 2.0-7.5 [facility] Comment on above: Order Comment: Order Added by Discern Expert. Performed By: #### 2 019858, [id number] #### [facility] [address] [place] [address] BMPon 06-23-2023 Anion gap [Moles/Vol] 13 mmol/L Normal 6-16 [facility] Comment on above: Performed By: #### 2 754349, [id number] #### [facility] [address] [place] [address] BUN/Creat Ratio 20 No Units Normal 10-20 [facility] Comment on above: Performed By: #### 2 767703, [id number] #### [facility] [address] [place] [address] Calcium [Mass/Vol] 10.7 mg/dL Normal 8.9-11.1 [facility] Comment on above: Performed By: #### 2 619277, [id number] #### [facility] [address] [place] [address] Chloride [Moles/Vol] 103 mmol/L Normal 101-111 [facility] Comment on above: Performed By: #### 2 393986, [id number] #### [facility] [address] [place] [address] CO2 [Moles/Vol] 25 mmol/L Normal 21-31 [facility] Comment on above: Performed By: #### 2 087626, [id number] #### [facility] [address] [place] [address] Creatinine [Mass/Vol] 0.9 mg/dL Normal 0.5-1.3 [facility] Comment on above: Performed By: #### 2 067987, [id number] #### [facility] [address] [place] [address] Glucose [Mass/Vol] 98 mg/dL Normal 55-199 [facility] Comment on above: Performed By: #### 2 346579, [id number] #### [facility] [address] [place] [address] Potassium [Moles/Vol] 3.5 mmol/L Normal 3.5-5.3 [facility] Comment on above: Performed By: #### 2 058334, [id number] #### [facility] [address] [place] [address] Sodium [Moles/Vol] 137 mmol/L Normal 135-145 [facility] Comment on above: Performed By: #### 2 806032, [id number] #### [facility] [address] [place] [address] Urea nitrogen [Mass/Vol] 18 mg/dL Normal 5-21 [facility] Comment on above: Performed By: #### 2 464663, [id number] #### [facility] [address] [place] [address] CBC w/ Auto Diffon 4 Erythrocyte distribution width (RBC) [Ratio] 13.6 % Normal 10.9-14.2 [facility] Comment on above: Performed By: #### 2 969094, [id number] #### [facility] [address] [place] [address] Hematocrit (Bld) [Volume fraction] 40.9 % Normal 34.0-46.0 [facility] Comment on above: Performed By: #### 2 359565, [id number] #### [facility] [address] [place] [address] Hemoglobin (Bld) [Mass/Vol] 13.7 g/dL Normal 12.0-16.0 [facility] Comment on above: Performed By: #### 2 452385, [id number] #### [facility] [address] [place] [address] MCH (RBC) [Entitic mass] 30.8 pg Normal 27.0-34.0 [facility] Comment on above: Performed By: #### 2 866050, [id number] #### [facility] [address] [place] [address] MCHC (RBC) [Mass/Vol] 33.4 g/dL Normal 31.4-36.0 [facility] Comment on above: Performed By: #### 2 233232, [id number] #### [facility] [address] [place] [address] MCV (RBC) [Entitic vol] 92.2 fL Normal 80.0-100.0 [facility] Comment on above: Performed By: #### 2 353879, [id number] #### [facility] [address] [place] [address] Platelet mean volume (Bld) [Entitic vol] 9.9 fL Normal 6.4-10.8 [facility] Comment on above: Performed By: #### 2 522953, [id number] #### [facility] [address] [place] [address] Platelets (Bld) [#/Vol] 301.0 E9/L Normal 150.0-500.0 [facility] Comment on above: Performed By: #### 2 428283, [id number] #### [facility] [address] [place] [address] RBC (Bld) [#/Vol] 4.4 E12/L Normal 4.3-5.9 [facility] Comment on above: Performed By: #### 2 447777, [id number] #### [facility] [address] [place] [address] WBC corrected for nucl RBC Auto (Bld) [#/Vol] 14.5 E9/L High 4.0-11.0 [facility] Comment on above: Performed By: #### 2 909473, [id number] #### [facility] [address] [place] [address] CHEMISTRYOrdered By: [employer] SYSTEM on 06-23-2023 Troponin 187.00 pg/mL Invalid [...] High Sensitivity Troponin I Instructions For Use, [employer], January 2018) Troponin 183.20 pg/mL Invalid Interpretation [...] High Sensitivity Troponin I Instructions For Use, [employer], January 2018) Troponin 116.80 pg/mL Invalid Interpretation Code 10.10 - 27.10 pg/mL [facility] Comment on above: Result Comment: Crit ical Result Verified by Repeat Analysis Critical Result I_TnIHS:116.8 Called to and read back by: ELIAN QUIGLEY at: 06/23/2023 06:19:20 by:SYDNI Interpretive Data: T he 95% CI (Confidence [...] 96 mg/dL Normal 55 - 99 mg/dL [facility] POC Subsection Comment on above: Result Comment: Bonnie jamil RN/ POC Device SN [id number] 1 Invalid Interpretation Code [facility] POC Subsection POC User ID [id number] 1 Invalid Interpretation Code [facility] POC Subsection POC Username JOSH GERONIMO Invalid Interpretation Code [facility] POC Subsection COAGULATIONOrdered By: Hoang Chris on 06-23-2023 aPTT Coag (PPP) [Time] 30.4 s Normal 25.1 - 36.5 second(s) [facility] Auto Coag Comment on [...] the same coagulation reagent and instrumentation as [facility]. Currently there are no coagulation studies available worldwide for children to 14 days, and no normal ranges. Heparin therapeutic range (represented by Anti-Factor Xa activity of 0.2 - 0.4 U/mL) corresponds to PTT of 56.6 - 109.0 sec. INR Coag (PPP) [Relative time] 1.0 {INR} Invalid Interpretation Code [facility] Auto Coag Comment on above: Interpretive Data: I NR results are specifically intended to assess patients stabilized on long-term Anticoagulation therapy suggested INR s Less Intensive Anticoagulation 2.0 3.0 Conventional Range 3.0 4.5 PT Coag (PPP) [Time] 11.7 s Normal 9.4 - 1 2.5 second(s) [facility] Auto Coag Comment on [...] the same coagulation reagent and instrumentation as [facility]. Currently there are no [...] Technologist: YOLY Technical Comments Contrast: None Normal [facility] Capillary Glucose POCon 06-11 Glucose [Mass/Vol] 96 mg/dL Normal 55-99 [facility] Comment on above: Result Comment: Bonnie jamil RN/ Performed By: #### 2 [id number] #### [facility] [address] [place] [address] Consent for Treatmenton 06-11 Consent for Treatment [id number] Normal [facility] Discharge Note-Nursingon Discharge Note-Nursing JUDITH KHAN [...] Doctor Event Name Event Result Pharmacy Information [facility] Filiberto New Follow Up Appointments after Discharge Follow Up with Dani HERRERA, JOANNA Kauffman When: Within 1 to 2 weeks [facility] [address] Medications What How Much When Instructions Next [...] 103 mmol/L (06/23/23 01:55:00) RDW: 13.6 % (06/23/23:55:00) CO2: 25 mmol/L (06/23/23 01:55:00) Platelet: 301 [...] days a (more content not included)... Normal [facility] ED Clinical Summaryon 2023 ED Clinical Summary (Inserted Image. Jenni ble to display) [address] [address] ED Clinical Summary Person Information Name: JUDITH KHAN [facility] Age: 78 Years : 1945 Sex: Female Language: Samoan PCP: Kavon Sams MD Marital Status: Visit Id: Visit Reason: Potential stroke; POSS STROKE Speciality: Acuity: 2 Enc Type: Observation Med Service: Emergency Arrival: 06/23/2023 01:35:17 Discharge: LOS: 000 03:53 Checkin: 06/23/2023 01:35:17 Checkout: 06/23/2023 05:28:48 Dispo Type: Admitted as IP to this [facility] EVENTS: Event Name Event Status Request [...] 04:30:21 Meds Admin Request 06/23/2023 04:30:49 ADDRESS: [address] [place] [phone] PHYS DOC NOTES: MEDICAL INFORMATION: Prescriptions Given: [...] 4:Elevated troponin; 5:Hypertension; 6:High cholesterol; 7:Parkinsons Normal [facility] ED Note-Physicianon 06-23-19 ED Note-Physician Basic [...] both correctly = 0 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 Normal [facility] Comment on above: Result Comment: Elec tronically Signed By: Thea Stacy, Augie Charlton\.br\Date and Time Signed: 06/23/23 04:21 EST ED Patient Education Noteon 06-23-2023 ED Patient Education Note Normal [facility] ED Patient Summaryon 024 ED Patient Summary (Inserted Image. Jenni ble to display) [place] [id number] Patient Discharge Instructions Person Information Name: JUDITH KHAN Age: 78 Years Arrival Date: 06/23/2023 01:35:17 Discharge Diagnosis: 1:Right sided weakness; 2:Hypoxia; 3:Urinary tract infection; 4:Elevated troponin; 5:Hypertension; 6:High cholesterol; 7:Parkinsons Primary Care Physician: Kavon Sams MD Provider Information Primary Provider: Augie Sidhu M.D. Advanced Occupancy Specialist:None The exam and treatment you received in the Emergency Department were for an urgent problem and are not intended as complete care. It is important that you follow up with a doctor, nurse practitioner, or physician?s enrichment assistant for ongoing care. If your symptoms become worse or you do not improve as expected and you are unable to reach your usual health care provider, you should return to the Emergency Department. We are available 24 hours a day. RAULJUDITH Apodaca has been given the following list of [...] opioids can be used to help relieve mwnhtaxr-gw-gqozsy pain and are often prescribed following a [...] be struggling with addiction, tell your health skin care instructor and ask for guidance or call [facility]?S National Helpline at 1-628-542-QBIF. q Source: [place] Department of Health and Human Services/Center for Disease (more content not included)... Normal [facility] HEMATOLOGYOrdered By: SYSTEM SYSTEM on 06-23-2023 [...] 14.5 E9/L High 4.0 - 11.0 E9/L FT HemeAutoSS Hep Func Panelon 06-23-2023 Albumin [Mass/Vol] 4.1 g/dL Normal 3.3-5.0 [facility] Comment on above: Performed By: #### 2 006859, [id number] #### [facility] [address] [place] [address] Albumin/Globulin [Mass ratio] 1.7 {ratio} Normal 1.1-2.2 [facility] Comment on above: Performed By: #### 2 263777, [id number] #### [facility] [address] [place] [address] Alk Phos 80 Int._Unit/L Normal 21-98 [facility] Comment on above: Performed By: #### 2 021768, [id number] #### [facility] [address] [place] [address] ALT 10 Int._Unit/L Normal 6-46 [facility] Comment on above: Performed By: #### 2 942396, [id number] #### [facility] [address] [place] [address] AST 16 Int._Unit/L Normal 5-43 [facility] Comment on above: Performed By: #### 2 939067, [id number] #### [facility] [address] [place] [address] Bili Direct 0.1 mg/dL Normal 0.0-0.4 [facility] Comment on above: Performed By: #### 2 932758, [id number] #### [facility] [address] [place] [address] Bili Indirect 0.5 mg/dL Normal 0.1-0.9 [facility] Comment on above: Performed By: #### 2 136311, [id number] #### [facility] [address] [place] [address] Bili Total 0.6 mg/dL Normal 0.0-1.1 [facility] Comment on above: Performed By: #### 2 530815, [id number] #### [facility] [address] [place] [address] Globulin (S) [Mass/Vol] 2.4 g/dL Normal 1.4-4.0 [facility] Comment on above: Performed By: #### 2 735617, [id number] #### [facility] [address] [place] [address] Protein [Mass/Vol] 6.5 g/dL Normal 6.0-7.8 [facility] Comment on above: Performed By: #### 2 656276, [id number] #### [facility] [address] [place] [address] Interdisciplinary Note - Bobby n 06-23-2023 Interdisciplinary [...] Recommend Out-pt. OT eval. for Parkinson's. Normal [facility] Interdisciplinary Note - Spe ech Languageon [...] further ST needs at this time. Normal [facility] Lactic Acidon 06-23-2023 Lactic Acid Lvl 1.1 mmol/L Normal 0.5-2.2 [facility] Comment on above: Performed By: #### 2 221854, [id number] #### [facility] [address] [place] [address] MICRO OTHER TESTSOrdered By: Hoang Chris on 06-23-2023 Rapid COV Int NEG Ctl Pass (06/23/23 2:12 AM) Normal [facility] Man Sero Rapid COV Int POS Ctl Pass (06/23/23 2:12 AM) Normal [facility] Man Sero SARS-CoV+SARS-CoV-2 (COVID-19) Ag IA.rapid Ql (Resp) Not Detected 11 (06/23/23 2:12 AM) Normal Not Detected [facility] Man [facility]ero Comment on above: Interpretive Data: Bob melendez [employer] Veritor System for Rapid Detection of SARS-CoV-2 [...] other viruses or pathogens; and, in the [facility], this test is only authorized for the duration of the declaration that circumstances exist justifying the authorization of emergency use of in vitro diagnostics for detection and/or diagnosis of the virus that causes COVID-19 under Section 564(b)(1) of the Act, 21 U.S.C. 360bbb-3(b)(1), unless the authorization is terminated or revoked sooner. Magnesiumon 06-23-2023 Magnesium [Mass/Vol] 1.8 mg/dL Normal 1.3-2.4 [facility] Comment on above: Performed By: #### 2 068668, [id number] #### [facility] [address] [place] [address] Message from Medicareon 06-11 Message from Medicare [id number]#1.00TIFF Normal [facility] Monitor Recordon 06-23-2023 Monitor Record [id number]#1.00TIFF Normal [facility] Monitor Record [id number]#1.00TIFF Normal [facility] Monitor Record [id number]#1.00TIFF Normal [facility] Monitor Record [id number]#1.00TIFF Normal [facility] PT & PTTon 06-23-2023 aPTT Coag (PPP) [Time] 30.4 second(s) Normal 25.1-36.5 [facility] Comment on above: Result Comment: Para [...] the same coagulation reagent and instrumentation as [facility]. Currently there are no coagulation studies available worldwide for children to 14 days, and no normal ranges. Heparin therapeutic range (represented by Anti-Factor Xa activity of 0.2 - 0.4 U/mL) corresponds to PTT of 56.6 - 109.0 sec. Performed By: #### 2 386983, [id number] #### [facility] [address] [place] [address] INR Coag (PPP) [Relative time] 1.0 {INR} Invalid Interpretation Code [facility] Comment on above: Result Comment: INR results are specifically intended to assess patients stabilized on long-term Anticoagulation therapy suggested INR?s ?Less Intensive Anticoagulation? 2.0 ? 3.0 Conventional Range 3.0 ? 4.5 Performed By: #### 2 119132, [id number] #### [facility] [address] [place] [address] PT Coag (PPP) [Time] 11.7 second(s) Normal 9.4-12.5 [facility] Comment on above: Result Comment: 15 [...] the same coagulation reagent and instrumentation as [facility]. Currently there are no coagulation studies available worldwide for children to 14 days, and no normal ranges. Performed By: #### 2 656091, [id number] #### [facility] [address] [place] [address] Patient Education - Texton 0 06-23-2023 Patient [...] about working with a physical therapist or physical trainer to help you get stronger. General instructions ? Take cker-hzr-pcetegn and prescription medicines only as told by [...] provider. Document Revised: 04/30/2022 Document Reviewed: 04/30/2022 Olery Patient Education ? 2022 ethology. Obstetrics and Gynecology Urinary Tract Infection, Adult [...] (sexually transmitted (more content not included)... Normal [facility] Pre-Arrival Noteon 4 Pre-Arrival Note Pre-Arrival Summary Name: , [facility] Current Date: 06/23/2023 01:37:08 EST Gender: Date of : Age: Pre-Arrival Type: EMS ETA: 06/23/2023 01:53:00 EST Primary Care Physician: Presenting Problem: possible stroke Pre-Arrival User: Tejal Gold RN Referring Source: Location: PA Completion Date/Time: 06/23/2023 01:23:00 [facility] Emergency Department Pre-Hospital Report Form Vital Signs: Pre-Hospital Report: Treatment in Route: Response to Treatment: Misc. Issues: Normal [facility] RAD - Preliminary Cat Scan R eporton 06-23-2023 RAD - Preliminary Cat Scan Report [id number]#1.00TIFF Normal [facility] Rapid COVID Antigen ([facility])on 06-23-2023 Rapid COV Int NEG Ctl Pass Normal [facility] Comment on above: Performed By: #### 2 863834, [id number] #### [facility] [address] [place] [address] Rapid COV Int POS Ctl Pass Normal [facility] Comment on above: Performed By: #### 2 729767, [id number] #### [facility] [address] [place] [address] SARS-CoV+SARS-CoV-2 (COVID-19) Ag IA.rapid Ql (Resp) Not detected Normal Not Detected [facility] Comment on above: Result Comment: The [employer] Veritor? System for Rapid Detection of SARS-CoV-2 is [...] in patient care settings operating under a [place] Certificate of Waiver, Certificate of Compliance, or [...] or revoked sooner. Performed By: #### 2 [id number], [id number] #### [facility] [address] [place] [address] TSH With T4fr Reflexon 06-23 TSH Qn 0.68 m[IU]/L Normal 0.34-5.60 [facility] Comment on above: Performed By: #### 2 [id number], [id number] #### [facility] [address] [place] [address] Troponin 0 Hr.on 06-23-2023 Troponin 42.70 pg/mL Abnormal 10.10-27.10 [facility] Comment on above: Result Comment: Crit [...] Sensitivity Troponin I Instructions For Use, Jacques Mason, January 2018) Performed By: #### 2 [id number], [id number] #### [facility] [address] [place] [address] Troponin 3 Hr.on 06-23-2023 Troponin 116.80 pg/mL Abnormal 10.10-27.10 [facility] Comment on above: Result Comment: Crit ical Result Verified by Repeat Analysis Critical Result I_TnIHS:116.8 Called to and read back by: ELIAN QUIGLEY at: 06/23/2023 06:19:20 by:CMK The 95% CI (Confidence Interval) PPV (Positive Predictive Value) for myocardial infarction in females is 38 pg/mL, in males 51 pg/mL. The results should be used in conjunction with clinical conditions of myocardial infarction. (Access High Sensitivity Troponin I Instructions For Use, [employer] [place] 2018) Performed By: #### 1 [id number] #### [facility] [address] [place] [id number] Troponin 6 Hr.on 06-23-2023 Troponin 183.20 pg/mL Abnormal 10.10-27.10 [facility] Comment on above: Result Comment: Crit [...] High Sensitivity Troponin I Instructions For Use, [employer], January 2018) Performed By: #### 1 [id number] #### [facility] [address] [place] [address] Troponin 9 Hr.on 06-23-2023 Troponin 187.00 pg/mL Abnormal 10.10-27.10 [facility] Comment on above: Result Comment: Crit [...] High Sensitivity Troponin I Instructions For Use, [employer] [place] 2018) Performed By: #### 1 [id number] ####[facility] [id number] [place] [id number] UA With Cult Reflexon 2023 Bacteria LM Ql (Urine sed) 1+ /HPF Abnormal Trace [facility] Comment on above: Performed By: #### 1 [id number], [id number] #### [facility] [address] [place] [address] Bilirubin Ql (U) Negative Normal Negative [facility] Comment on above: Performed By: #### 1 [id number], [id number] #### [facility] [address] [place] [address] Clarity (U) SL CLOUDY Abnormal Clear [facility] Comment on above: Performed By: #### 1 [id number], [id number] #### [facility] [address] [place] [address] Color (U) YELLOW Normal Yellow [facility] Comment on above: Performed By: #### 1 [id number], [id number] #### [facility] [address] [place] [address] Epithelial cells.squamous LM.HPF (Urine sed) [#/Area] 0-2 Normal 0-2 [facility] Comment on above: Performed By: #### 1 [id number], [id number] #### [facility] [address] [place] [address] Glucose Test strip (U) [Mass/Vol] Negative Normal Negative [facility] Comment on above: Performed By: #### 1 [id number], [id number] #### [facility] [address] [place] [address] Hemoglobin Ql (U) Negative Normal Negative [facility] Comment on above: Performed By: #### 1 [id number], [id number] #### [facility] [address] [place] [address] Ketones (U) [Mass/Vol] Negative Normal Negative [facility] Comment on above: Performed By: #### 1 [id number], [id number] #### [facility] [address] [place] [address] Kap[place]i.plasma/Lithi um.RBC (Bld) [Mass ratio] 0-3 Normal 0-3 [facility] Comment on above: Performed By: #### 1 [id number], [id number] #### [facility] [address] [place] [address] Nitrite Ql (U) Negative Normal Negative [facility] Comment on above: Performed By: #### 1 [id number], [id number] #### [facility] [address] [place] [address] pH (U) 7.5 [pH] Invalid Interpretation Code 5.0-9.0 [facility] Comment on above: Performed By: #### 1 [id number], [id number] #### [facility] [address] [place] [address] Protein (U) [Mass/Vol] Negative Normal Negative [facility] Comment on above: Performed By: #### 1 [id number], [id number] #### [facility] [address] [place] [address] Specific gravity (U) [Rel density] 1.015 Invalid Interpretation Code 1.005-1.030 [facility] Comment on above: Performed By: #### 1 [id number], [id number] #### [facility] [address] [place] [address] Urobilinogen Qn (U) 0.2 {Phoebe'U}/dL Normal 0.0-1.0 [facility] Comment on above: Performed By: #### 1 [id number], [id number] #### [facility] [address] [place] [address] WBC Auto Ql (U) 1+ Abnormal Negative [facility] Comment on above: Performed By: #### 1 [id number], [id number] #### [facility] [address] [place] [address] WBC LM.HPF (Urine sed) [#/Area] 6-15 Abnormal 0-5 [facility] Comment on above: Performed By: #### 1 [id number], [id number] #### [facility] [address] [place] [address] URINALYSISOrdered By: Hoang Chris on 06-23-2023 Bacteria [...] AM) Normal Negative [facility] UA Auto SS Kap[place]i.plasma/Lithi um.RBC (Bld) [Mass ratio] 0-3 /HPF Normal [...] AM) Invalid Interpretation Code 1.005 - 1.030 [facility] UA Auto SS UA Spec Desc Clean Catch (06/23/23 3:01 AM) Normal [facility] UA Auto SS Urobilinogen Qn (U) 0.4515286 {Phoebe'U}/dL Normal 0.0 - 1.0 EU/dL [facility] UA Auto SS WBC Auto Ql (U) 1+ *ABN* (06/23/23 3:01 AM) Invalid Interpretation Code Negative [facility] UA Auto SS WBC LM.HPF (Urine sed) [#/Area] 6-15 /HPF Invalid Interpretation Code 0-5/HPF [facility] UA Auto SS XR Chest Single Viewon [...] mGy = na DAP = na Normal [facility] eGFRon 06-23-2023 GFR/1.73 sq M.predicted among non-blacks MDRD (S/P/Bld) [Vol rate/Area] mL/min/{1.73_m2} Normal >=59 [facility] Comment on above: Order Comment: Order added by Discern Expert. Performed By: #### 2 [id number], [id number] #### [facility] [address] [place] [address] Creatinine (Bld) [Mass/Vol]O rdered By: Giovanni Gill on 05-15-2023 Creatinine [Mass/Vol] 1.0 mg/dL 0.6-1.3 [facility] Comment on above: ER/ESD physician is notified/shown all ISTAT results.Critical values may be confirmed by laboratory testing ifdeemed necessary by ER attending doctor. ISTAT XRay CREon 05-15-2023 Creatinine [Mass/Vol] 1.0 mg/dL Normal 0.6-1.3 [facility] Comment on above: Result Comment: ER/E SD physician is notified/shown all ISTAT results. Critical values may be confirmed by laboratory testing if deemed necessary by ER attending doctor. Performed By: #### I SCRE #### [address] ISTAT GFR 58.023 Normal [facility] Comment on above: Result Comment: PERF ORMED BY: [place] [address] PATHOLOGIST OPERATIONS SUPPORT MANAGER MRAISOL AGUSTIN M.D. Performed By: #### I SCRE #### [address] MR head/brain wo/w conon MR head/brain wo/w con [facility] [place] [address] [place] [address] MRI Report Signed Patient: Judith Khan MR#: [id number] : 1945 Acct:[id number] Age/Sex: 78 / F ADM Date: 05/15/23 Loc: MR Room: Type: [facility] Attending Dr: Giovanni COLIN Copies to: DIXIE [...] Adeel Meyer M.D.05/15/2023 5:24 PM Dictation Location: [place] [address] Transcribed By: JOSELO 05/15/231723 Dictated By: Adeel Meyer II, MD 05/15/231718 Signed By: 05/15/231723 Normal [facility] No Panel InformationOrdered By: Giovanni Gill on 05-15-2023 Bedside Estimated GFR (eGFR) 58.023 [facility] 37on 01-12-2023 37 Hold metoprolol and see if fatigue levels improve Continue all other medications Monitor blood pressure 1-2 times a day and if it increases greater than 130/80 please call the office for medication adjustment, or for tachycardia/palpitations Normal [facility] Office Visiton 01-12-2023 Follow-up visit [id number] Donato Khan 1945 F Date Provider Department Center 01/12/2023 MILA SORIA SANTA [facility] Family History Problem Relation Age of Onset Stroke Mother Stroke Brother Other Mother's Sister Coronary artery disease Mother's Sister Stroke Maternal Grandmother Family Status - Relation Status Age at Mother Brother Mother's Sister Maternal Grandmother Level of Service:66235 GA OFFICE/OUTPATIENT ESTABLISHED LOW MDM 20-29 MIN Normal [facility] BNPon 10-09-2022 Natriuretic peptide B (Bld) [Mass/Vol] 90.0 pg/mL Normal <=1,800.0 [facility] Comment on above: Performed By: #### M G, CMP, TSH, T7, BNP #### [facility] [address] [place] [address] [address] Glenys Holly CBC AUTO DIFFon 10-09-2022 BASO # 0.1 103/ul Normal 0.0-0.1 [facility] Comment on above: Performed By: #### M G, CMP, TSH, T7, BNP #### [facility] [address] [place] [address] Dr. Glenys Holly Basophils/100 WBC (Bld) 1.0 % Normal 0.2-2.0 [facility] Comment on above: Performed By: #### M G, CMP, TSH, T7, BNP #### [facility] [address] [place] [address] Dr. Glenys Holly EO # 0.5 103/ul Normal 0.0-0.7 [facility] Comment on above: Performed By: #### M G, CMP, TSH, T7, BNP #### [facility] [address] [place] [address] Dr. Glenys Holly Eosinophils/100 WBC (Bld) 6.4 % Normal 0.9-7.0 [facility] Comment on above: Performed By: #### M G, CMP, TSH, T7, BNP #### [facility] [address] [place] [address] Dr. Glenys Holly Erythrocyte distribution width (RBC) [Ratio] 15.4 % Critically high 11.0-15.0 [facility] Comment on above: Performed By: #### M G, CMP, TSH, T7, BNP #### [facility] [address] [place] [address] Dr. Glenys Holly Hematocrit (Bld) [Volume fraction] 42.8 % Normal 36.0-48.0 [facility] Comment on above: Performed By: #### M G, CMP, TSH, T7, BNP #### [facility] [address] [place] [address] Dr. Glenys Holly Hemoglobin (Bld) [Mass/Vol] 14.1 g/dL Normal 12.0-16.0 [facility] Comment on above: Performed By: #### M G, CMP, TSH, T7, BNP #### [facility] [address] [place] [address] Dr. Glenys Holly IG # 0.01 10e3/ul Normal 0.00-0.03 [facility] Comment on above: Performed By: #### M G, CMP, TSH, T7, BNP #### [facility] [address] [place] [address] Dr. Glenys Holly IG % 0.1 % Normal 0.0-0.5 [facility] Comment on above: Performed By: #### M G, CMP, TSH, T7, BNP #### [facility] [address] [place] [address] Dr. Glenys Holly LYMPH # 3.3 103/ul Normal 1.2-3.8 [facility] Comment on above: Performed By: #### M G, CMP, TSH, T7, BNP #### [facility] [address] [place] [address] Dr. Glenys Holly Lymphocytes/100 WBC (Bld) 44.2 % Normal 20.5-60.0 [facility] Comment on above: Performed By: #### M G, CMP, TSH, T7, BNP #### [facility] [address] [place] [address] Dr. Glenys Holly MANUAL DIFF REQ NO Normal [facility] Comment on above: Performed By: #### M G, CMP, TSH, T7, BNP #### [facility] [address] [place] [address] Dr. Glenys Holly MCH (RBC) [Entitic mass] 30.3 pg Normal 26.7-34.0 [facility] Comment on above: Performed By: #### M G, CMP, TSH, T7, BNP #### [facility] [address] [place] [address] Dr. Glenys Holly MCHC (RBC) [Mass/Vol] 32.9 g/dL Normal 29.9-35.2 [facility] Comment on above: Performed By: #### M G, CMP, TSH, T7, BNP #### [facility] [address] [place] [address] Dr. Glenys Holly MCV (RBC) [Entitic vol] 92.0 fL Normal 81.0-99.0 [facility] Comment on above: Performed By: #### M G, CMP, TSH, T7, BNP #### [facility] [address] [place] [address] Dr. Glenys Holly MONO # 1.2 103/ul Critically high 0.3-0.8 [facility] Comment on above: Performed By: #### M G, CMP, TSH, T7, BNP #### [facility] [address] [place] [address] Dr. Glenys Holly Monocytes/100 WBC (Bld) 16.4 % Critically high 1.7-12.0 [facility] Comment on above: Performed By: #### M G, CMP, TSH, T7, BNP #### [facility] [address] [place] [address] Dr. Glenys Holly NEUT # 2.4 103/ul Normal 1.4-6.5 [facility] Comment on above: Performed By: #### M G, CMP, TSH, T7, BNP #### [facility] [address] [place] [address] Dr. Glenys Holly Neutrophils/100 WBC (Bld) 31.9 % Critically low 43.0-75.0 [facility] Comment on above: Performed By: #### M G, CMP, TSH, T7, BNP #### [facility] [address] [place] [address] Dr. Glenys Holly Platelet mean volume (Bld) [Entitic vol] 10.3 fL Normal 9.5-13.5 [facility] Comment on above: Performed By: #### M G, CMP, TSH, T7, BNP #### [facility] [address] [place] [address] Dr. Glenys Holly PLT 379 103/ul Normal 150-450 [facility] Comment on above: Performed By: #### M G, CMP, TSH, T7, BNP #### [facility] [address] [place] [address] Dr. Glenys Holly RBC 4.65 106/ul Normal 4.20-5.40 [facility] Comment on above: Performed By: #### M G, CMP, TSH, T7, BNP #### [facility] [address] [place] [address] Dr. Gelnys Holly WBC 7.4 103/ul Normal 4.0-11.0 [facility] Comment on above: Performed By: #### M G, CMP, TSH, T7, BNP #### [facility] [address] [place] [address] Dr. Glenys Holly FERRITINon 10-09-2022 Ferritin [Mass/Vol] 68.0 ng/mL Normal 8.0-252.0 [facility] Comment on above: Performed By: #### F ERR, IRON, VITAD ####[facility] [id number] [place] [address]Dr. Glenys Holly FREE THYROXINE INDEX T7on FTI 3.10 Normal 1.30-4.50 [facility] Comment on above: Performed By: #### M G, CMP, TSH, T7, BNP #### [facility] [address] [place] [address] Dr. Glenys Holly T3U 36.0 % Normal 30.0-39.0 [facility] Comment on above: Performed By: #### M G, CMP, TSH, T7, BNP #### [facility] [address] [place] [address] Dr. Glenys Holly T4 [Mass/Vol] 8.60 ug/dL Normal 4.80-13.90 [facility] Comment on above: Performed By: #### M G, CMP, TSH, T7, BNP #### [facility] [address] [place] [address] Dr. Glenys Holly IRONon 10-09-2022 Iron [Mass/Vol] 52.0 ug/dL Normal 50.0-170.0 [facility] Comment on above: Performed By: #### F ERR, IRON, VITAD ####[facility] [id number] [place] [address]Dr. Glenys Holly MAGNESIUMon 10-09-2022 Magnesium [Mass/Vol] 2.0 mg/dL Normal 1.8-2.4 [facility] Comment on above: Performed By: #### M G, CMP, TSH, T7, BNP #### [facility] [address] [place] [address] Dr. Glenys Holly PROF 14(COMP METB)on 023 Albumin [Mass/Vol] 3.5 g/dL Normal 3.4-5.0 [facility] Comment on above: Performed By: #### M G, CMP, TSH, T7, BNP #### [facility] [address] [address] [address] Glenys Holly Albumin/Globulin [Mass ratio] 1.0 {ratio} Normal [facility] Comment on above: Performed By: #### M G, CMP, TSH, T7, BNP #### [facility] [address] [address] [address] Glenys Holly ALP [Catalytic activity/Vol] 134 U/L Critically high 46-116 [facility] Comment on above: Performed By: #### M G, CMP, TSH, T7, BNP #### [facility] [address] [place] [address] Dr. Glenys Holly ALT [Catalytic activity/Vol] 34 U/L Normal 14-59 [facility] Comment on above: Performed By: #### M G, CMP, TSH, T7, BNP #### [facility] [address] [address] [address] Glenys Holly Anion gap [Moles/Vol] 8.8 mmol/L Normal [facility] Comment on above: Performed By: #### M G, CMP, TSH, T7, BNP #### [facility] [address] [address] [address] Glenys Holly AST [Catalytic activity/Vol] 19 U/L Normal 15-37 [facility] Comment on above: Performed By: #### M G, CMP, TSH, T7, BNP #### [facility] [address] [address] [address] Glenys Holly Bilirubin [Mass/Vol] 0.2 mg/dL Normal 0.2-1.0 [facility] Comment on above: Performed By: #### M G, CMP, TSH, T7, BNP #### [facility] [address] [address] [address] Glenys Holly Calcium [Mass/Vol] 10.6 mg/dL Critically high 8.5-10.1 [facility] Comment on above: Performed By: #### M G, CMP, TSH, T7, BNP #### [facility] [address] [address] [address] Glenys Holly Chloride [Moles/Vol] 105 mmol/L Normal 98-107 [facility] Comment on above: Performed By: #### M G, CMP, TSH, T7, BNP #### [facility] [address] [address] [address] Glenys Holly CO2 [Moles/Vol] 30.0 mmol/L Normal 21.0-32.0 [facility] Comment on above: Performed By: #### M G, CMP, TSH, T7, BNP #### [facility] [address] [place] [address] Dr. Glenys Holly Creatinine [Mass/Vol] 0.86 mg/dL Normal 0.55-1.02 [facility] Comment on above: Performed By: #### M G, CMP, TSH, T7, BNP #### [facility] [address] [place] [address] Dr. Glenys Holly EGFR-AF SWEDISH >60 Normal >=60 [facility] Comment on above: Performed By: #### M G, CMP, TSH, T7, BNP #### [facility] [address] [place] [address] Dr. Glenys Holly EGFR-NON AF SWEDISH >60 Normal >=60 [facility] Comment on above: Performed By: #### M G, CMP, TSH, T7, BNP #### [facility] [address] [place] [address] Dr. Glenys Holly Globulin (S) [Mass/Vol] 3.5 g/dL Normal [facility] Comment on above: Performed By: #### M G, CMP, TSH, T7, BNP #### [facility] [address] [place] [address] Dr. Glenys Holly Glucose [Mass/Vol] 99 mg/dL Normal 74-106 [facility] Comment on above: Performed By: #### M G, CMP, TSH, T7, BNP #### [facility] [address] [place] [address] Dr. Glenys Holly Potassium [Moles/Vol] 3.8 mmol/L Normal 3.5-5.1 [facility] Comment on above: Performed By: #### M G, CMP, TSH, T7, BNP #### [facility] [address] [place] [address] Dr. Glenys Holly Protein [Mass/Vol] 7.0 g/dL Normal 6.4-8.2 [facility] Comment on above: Performed By: #### M G, CMP, TSH, T7, BNP #### [facility] [address] [place] [address] Dr. Glenys Holly Sodium [Moles/Vol] 140 mmol/L Normal 136-145 [facility] Comment on above: Performed By: #### M G, CMP, TSH, T7, BNP #### [facility] [address] [place] [address] Dr. Glenys Holly Urea nitrogen [Mass/Vol] 25.0 mg/dL Critically high 7.0-18.0 [facility] Comment on above: Performed By: #### M G, CMP, TSH, T7, BNP #### [facility] [address] [place] [address] Dr. Glenys Holly Urea nitrogen/Creatinine [Mass ratio] 29.1 mg/mg Normal [facility] Comment on above: Performed By: #### M G, CMP, TSH, T7, BNP #### [facility] [address] [place] [address] Dr. Glenys Holly TSHon 10-09-2022 TSH 1.720 uIU/mL Normal 0.358-3.740 [facility] Comment on above: Performed By: #### M G, CMP, TSH, T7, BNP #### [facility] [address] [place] [address] Dr. Glenys Holly VITAMIN D 25 OHon 10-09-2022 VIT D 25-OH 89.3 ng/mL Normal [facility] Comment on above: Performed By: #### F ERR, IRON, VITAD ####[facility] [id number] [place], [place] [address]Go. Glenys Holly VIT D RANGES SEE BELOW Normal [facility] Comment on above: Result Comment: <20 ng/mL Vit D deficient 20 - <30 ng/mL Vit D insufficient 30 - 100 ng/mL Vit D sufficient >100 ng/mL Potential Toxicity Performed By: #### F ERR, IRON, VITAD ####[facility] [id number] [place], [place] [address]Dk. Glenys Holly NM STRESS/REST MULTIon 05-24 NM STRESS/REST MULTI Patient: Shana KHAN Exam Date: 05/24/2022 : 1945 Gender:F Ordering : DR KAVON SAMS . Admission #: [id number] Family : Order #: [id number] CLICK HERE TO VIEW EXAM RADIOLOGY REPORT [...] medicine myocardial perfusion scan. Dictated by: Ramiro Specner M.D. on 05/24/2022 at 16:00 Approved by: Ramiro Spencer M.D. on 05/24/2022 at 16:02 Normal [facility] BNPon 05-10-2022 Natriuretic peptide B (Bld) [Mass/Vol] 1305.0 pg/mL Normal <=1,800.0 [facility] Comment on above: Performed By: #### M G, CMP, TSH, T7, BNP #### [facility] [address] [place] [address] Dr. Glenys Holly CBC AUTO DIFFon 05-10-2022 BASO # 0.0 103/ul Normal 0.0-0.1 [facility] Comment on above: Performed By: #### M G, CMP, TSH, T7, BNP #### [facility] [address] [place] [address] Dr. Glenys Holly Basophils/100 WBC (Bld) 0.3 % Normal 0.2-2.0 [facility] Comment on above: Performed By: #### M G, CMP, TSH, T7, BNP #### [facility] [address] [place] [address] Dr. Glenys Holly EO # 0.0 103/ul Normal 0.0-0.7 [facility] Comment on above: Performed By: #### M G, CMP, TSH, T7, BNP #### [facility] [address] [place] [address] Dr. Glenys Holly Eosinophils/100 WBC (Bld) 0.1 % Critically low 0.9-7.0 [facility] Comment on above: Performed By: #### M G, CMP, TSH, T7, BNP #### [facility] [address] [place] [address] Dr. Glenys Holly Erythrocyte distribution width (RBC) [Ratio] 15.1 % Critically high 11.0-15.0 [facility] Comment on above: Performed By: #### M G, CMP, TSH, T7, BNP #### [facility] [address] [place] [address] Dr. Glenys Holly Hematocrit (Bld) [Volume fraction] 42.9 % Normal 36.0-48.0 [facility] Comment on above: Performed By: #### M G, CMP, TSH, T7, BNP #### [facility] [address] [place] [address] Dr. Glenys Holly Hemoglobin (Bld) [Mass/Vol] 14.6 g/dL Normal 12.0-16.0 [facility] Comment on above: Performed By: #### M G, CMP, TSH, T7, BNP #### [facility] [address] [place] [address] Dr. Glenys Holly IG # 0.05 10e3/ul Critically high 0.00-0.03 [facility] Comment on above: Performed By: #### M G, CMP, TSH, T7, BNP #### [facility] [address] [place] [address] Dr. Glenys Holly IG % 0.7 % Critically high 0.0-0.5 [facility] Comment on above: Performed By: #### M G, CMP, TSH, T7, BNP #### [facility] [address] [place] [address] Dr. Glenys Holly LYMPH # 1.6 103/ul Normal 1.2-3.8 [facility] Comment on above: Performed By: #### M G, CMP, TSH, T7, BNP #### [facility] [address] [place] [address] Dr. Glenys Holly Lymphocytes/100 WBC (Bld) 20.4 % Critically low 20.5-60.0 [facility] Comment on above: Performed By: #### M G, CMP, TSH, T7, BNP #### [facility] [address] [place] [address] Dr. Glenys Holly MANUAL DIFF REQ NO Normal [facility] Comment on above: Performed By: #### M G, CMP, TSH, T7, BNP #### [facility] [address] [place] [address] Dr. Glenys Holly MCH (RBC) [Entitic mass] 29.9 pg Normal 26.7-34.0 [facility] Comment on above: Performed By: #### M G, CMP, TSH, T7, BNP #### [facility] [address] [place] [address] Dr. Glenys Holly MCHC (RBC) [Mass/Vol] 34.0 g/dL Normal 29.9-35.2 [facility] Comment on above: Performed By: #### M G, CMP, TSH, T7, BNP #### [facility] [address] [place] [address] Dr. Glenys Holly MCV (RBC) [Entitic vol] 87.9 fL Normal 81.0-99.0 [facility] Comment on above: Performed By: #### M G, CMP, TSH, T7, BNP #### [facility] [address] [place] [address] Dr. Glenys Holly MONO # 0.7 103/ul Normal 0.3-0.8 [facility] Comment on above: Performed By: #### M G, CMP, TSH, T7, BNP #### [facility] [address] [place] [address] Dr. Glenys Holly Monocytes/100 WBC (Bld) 9.5 % Normal 1.7-12.0 [facility] Comment on above: Performed By: #### M G, CMP, TSH, T7, BNP #### [facility] [address] [place] [address] Dr. Glenys Holly NEUT # 5.2 103/ul Normal 1.4-6.5 [facility] Comment on above: Performed By: #### M G, CMP, TSH, T7, BNP #### [facility] [address] [place] [address] Dr. Glenys Holly Neutrophils/100 WBC (Bld) 69.0 % Normal 43.0-75.0 [facility] Comment on above: Performed By: #### M G, CMP, TSH, T7, BNP #### [facility] [address] [place] [address] Dr. Glenys Holly Platelet mean volume (Bld) [Entitic vol] 11.2 fL Normal 9.5-13.5 [facility] Comment on above: Performed By: #### M G, CMP, TSH, T7, BNP #### [facility] [address] [place] [address] Dr. Glenys Holly PLT 349 103/ul Normal 150-450 [facility] Comment on above: Performed By: #### M G, CMP, TSH, T7, BNP #### [facility] [address] [address] [address] Glenys Holly RBC 4.88 106/ul Normal 4.20-5.40 [facility] Comment on above: Performed By: #### M G, CMP, TSH, T7, BNP #### [facility] [address] [address] [address] Glenys Holly WBC 7.6 103/ul Normal 4.0-11.0 [facility] Comment on above: Performed By: #### M G, CMP, TSH, T7, BNP #### [facility] [address] [address] [address] Glenys Holly PROF 14(COMP METB)on 05-10- 022 Albumin [Mass/Vol] 3.3 g/dL Critically low 3.4-5.0 [facility] Comment on above: Performed By: #### H STROPN, BNP, CMP ####[facility] [address] [address]DrRatna Holly Albumin/Globulin [Mass ratio] 1.1 {ratio} [facility] Comment on above: Performed By: #### H STROPN, BNP, CMP ####[facility] [address] [address]DrRatna Holly ALP [Catalytic activity/Vol] 78 U/L Normal 46-116 [facility] Comment on above: Performed By: #### H STROPN, BNP, CMP ####[facility] [address] [address]DrRatna Holly ALT [Catalytic activity/Vol] 10 U/L Critically low 14-59 [facility] Comment on above: Performed By: #### H STROPN, BNP, CMP ####[facility] [address] [address]DrRatna Holly Anion gap [Moles/Vol] 11.2 mmol/L Normal [facility] Comment on above: Performed By: #### H STROPN, BNP, CMP ####[facility] [address] [address]Dr. Glenys Holly AST [Catalytic activity/Vol] 15 U/L Normal 15-37 [facility] Comment on above: Performed By: #### H STROPN, BNP, CMP ####[facility] [address] [address]Dr. Glenys Holly Bilirubin [Mass/Vol] 0.4 mg/dL Normal 0.2-1.0 [facility] Comment on above: Performed By: #### H STROPN, BNP, CMP ####[facility] [address] [address]Dr. Glenys Holly Calcium [Mass/Vol] 8.9 mg/dL Normal 8.5-10.1 [facility] Comment on above: Performed By: #### H STROPN, BNP, CMP ####[facility] [address] [place], [place] [address]Dr. Glenys Holly Chloride [Moles/Vol] 98 mmol/L Normal 98-107 [facility] Comment on above: Performed By: #### H STROPN, BNP, CMP ####[facility] [address] [place], [place] [address]Dr. Glenys Holly CO2 [Moles/Vol] 31.1 mmol/L Normal 21.0-32.0 [facility] Comment on above: Performed By: #### H STROPN, BNP, CMP ####[facility] [address] [place], [place] [address]Dr. Glenys Holly Creatinine [Mass/Vol] 1.15 mg/dL Critically high 0.55-1.02 [facility] Comment on above: Performed By: #### H STROPN, BNP, CMP ####[facility] [address] [place], [place] [address]Dr. Glenys Holly EGFR-AF SWEDISH 56 mL/min/1.73m2 Critically low >=60 [facility] Comment on above: Performed By: #### H STROPN, BNP, CMP ####[facility] [address] [place], [place] [address]Dr. Glenys Holly EGFR-NON AF SWEDISH 46 mL/min/1.73m2 Critically low >=60 [facility] Comment on above: Performed By: #### H STROPN, BNP, CMP ####[facility] [address] [address]Dr. Glenys Holly Globulin (S) [Mass/Vol] 3.0 g/dL Normal [facility] Comment on above: Performed By: #### H STROPN, BNP, CMP ####[facility] [address] [address]Dr. Glenys Holly Glucose [Mass/Vol] 107 mg/dL Critically high 74-106 [facility] Comment on above: Performed By: #### H STROPN, BNP, CMP ####[facility] [address] [address]Dr. Glenys Holly Potassium [Moles/Vol] 3.3 mmol/L Critically low 3.5-5.1 [facility] Comment on above: Performed By: #### H STROPN, BNP, CMP ####[facility] [address] [address]Dr. Glenys Holly Protein [Mass/Vol] 6.3 g/dL Critically low 6.4-8.2 [facility] Comment on above: Performed By: #### H STROPN, BNP, CMP ####[facility] [address] [address]Dr. Glenys Hloly Sodium [Moles/Vol] 137 mmol/L Normal 136-145 [facility] Comment on above: Performed By: #### H STROPN, BNP, CMP ####[facility] [address] [address]Dr. Glenys Holly Urea nitrogen [Mass/Vol] 29.0 mg/dL Critically high 7.0-18.0 [facility] Comment on above: Performed By: #### H STROPN, BNP, CMP ####[facility] [address] [address]Dr. Glenys Holly Urea nitrogen/Creatinine [Mass ratio] 25.2 mg/mg Normal [facility] Comment on above: Performed By: #### H STROPN, BNP, CMP ####[facility] [address] [place], [place] [address]PlRatna Holly TROPONIN, HIGH SENSITIVITYon 05-10-2022 HSTROP 50.5 pg/mL Normal 4.0-51.3 [facility] Comment on above: Result Comment: CUT- OFF POINTS HAVE BEEN ESTABLISHED BASED ON THE FOURTH UNIVERSAL DEFINITIONS OF MYOCARDIAL INFARCTION. THE UPPER REFERENCE LIMIT (URL) OF TROPONIN, DEFINED THE 99TH PERCENTILE OF cTnI DISTRIBUTION IN A REFERENCE POPULATION, HAS BEEN CONFIRMED THE DECISION THRESHOLD FOR AL DIAGNOSIS. Performed By: #### H STROPN, BNP, CMP ####[facility] [address] [id number] Glenys Holly XR CHEST 2 Von 05-10-2022 [...] Date: 2022-05-10 08:10 Normal [facility] BNPon 05-09-2022 Natriuretic peptide B (Bld) [Mass/Vol] 1975.0 pg/mL Critically high <=1,800.0 [facility] Comment on above: Performed By: #### M G, CMP, TSH, T7, BNP #### [facility] [address] [address] [address] Glenys Holly CBC AUTO DIFFon 05-09-2022 BASO # 0.0 103/ul Normal 0.0-0.1 [facility] Comment on above: Performed By: #### M G, CMP, TSH, T7, BNP #### [facility] [address] [place] [address] Dr. Glenys Holly Basophils/100 WBC (Bld) 0.4 % Normal 0.2-2.0 [facility] Comment on above: Performed By: #### M G, CMP, TSH, T7, BNP #### [facility] [address] [place] [address] Dr. Glenys Holly EO # 0.0 103/ul Normal 0.0-0.7 [facility] Comment on above: Performed By: #### M G, CMP, TSH, T7, BNP #### [facility] [address] [place] [address] Dr. Glenys Holly Eosinophils/100 WBC (Bld) 0.0 % Critically low 0.9-7.0 [facility] Comment on above: Performed By: #### M G, CMP, TSH, T7, BNP #### [facility] [address] [place] [address] Dr. Glenys Holly Erythrocyte distribution width (RBC) [Ratio] 15.2 % Critically high 11.0-15.0 [facility] Comment on above: Performed By: #### M G, CMP, TSH, T7, BNP #### [facility] [address] [place] [address] Dr. Glenys Holly Hematocrit (Bld) [Volume fraction] 41.7 % Normal 36.0-48.0 [facility] Comment on above: Performed By: #### M G, CMP, TSH, T7, BNP #### [facility] [address] [place] [address] Dr. Glenys Holly Hemoglobin (Bld) [Mass/Vol] 14.1 g/dL Normal 12.0-16.0 [facility] Comment on above: Performed By: #### M G, CMP, TSH, T7, BNP #### [facility] [address] [place] [address] Dr. Glenys Holly IG # 0.12 10e3/ul Critically high 0.00-0.03 [facility] Comment on above: Performed By: #### M G, CMP, TSH, T7, BNP #### [facility] [address] [place] [address] Dr. Glenys Holly IG % 1.2 % Critically high 0.0-0.5 [facility] Comment on above: Performed By: #### M G, CMP, TSH, T7, BNP #### [facility] [address] [place] [address] Dr. Glenys Holly LYMPH # 1.6 103/ul Normal 1.2-3.8 [facility] Comment on above: Performed By: #### M G, CMP, TSH, T7, BNP #### [facility] [address] [place] [address] Dr. Glenys Holly Lymphocytes/100 WBC (Bld) 16.0 % Critically low 20.5-60.0 [facility] Comment on above: Performed By: #### M G, CMP, TSH, T7, BNP #### [facility] [address] [place] [address] Dr. Glenys Holly MANUAL DIFF REQ NO Normal [facility] Comment on above: Performed By: #### M G, CMP, TSH, T7, BNP #### [facility] [address] [place] [address] Dr. Glenys Holly MCH (RBC) [Entitic mass] 30.0 pg Normal 26.7-34.0 [facility] Comment on above: Performed By: #### M G, CMP, TSH, T7, BNP #### [facility] [address] [place] [address] Dr. Glenys Holly MCHC (RBC) [Mass/Vol] 33.8 g/dL Normal 29.9-35.2 [facility] Comment on above: Performed By: #### M G, CMP, TSH, T7, BNP #### [facility] [address] [place] [address] Dr. Glenys Holly MCV (RBC) [Entitic vol] 88.7 fL Normal 81.0-99.0 [facility] Comment on above: Performed By: #### M G, CMP, TSH, T7, BNP #### [facility] [address] [place] [address] Dr. Glenys Holly MONO # 1.3 103/ul Critically high 0.3-0.8 [facility] Comment on above: Performed By: #### M G, CMP, TSH, T7, BNP #### [facility] [address] [address] [address] Glenys Holly Monocytes/100 WBC (Bld) 13.2 % Critically high 1.7-12.0 [facility] Comment on above: Performed By: #### M G, CMP, TSH, T7, BNP #### [facility] [address] [place] [address] Dr. Glenys Holly NEUT # 6.8 103/ul Critically high 1.4-6.5 [facility] Comment on above: Performed By: #### M G, CMP, TSH, T7, BNP #### [facility] [address] [place] [address] Dr. Glenys Holly Neutrophils/100 WBC (Bld) 69.2 % Normal 43.0-75.0 [facility] Comment on above: Performed By: #### M G, CMP, TSH, T7, BNP #### [facility] [address] [place] [address] Dr. Glenys Holly Platelet mean volume (Bld) [Entitic vol] 11.6 fL Normal 9.5-13.5 [facility] Comment on above: Performed By: #### M G, CMP, TSH, T7, BNP #### [facility] [address] [place] [address] Dr. Glenys Holly PLT 329 103/ul Normal 150-450 [facility] Comment on above: Performed By: #### M G, CMP, TSH, T7, BNP #### [facility] [address] [place] [address] Dr. Glenys Holly RBC 4.70 106/ul Normal 4.20-5.40 [facility] Comment on above: Performed By: #### M G, CMP, TSH, T7, BNP #### [facility] [address] [place] [address] Dr. Glenys Holly WBC 9.9 103/ul Normal 4.0-11.0 [facility] Comment on above: Performed By: #### M G, CMP, TSH, T7, BNP #### [facility] [address] [address] [address] Glenys Holly PROF 14(COMP METB)on 022 Albumin [Mass/Vol] 3.0 g/dL Critically low 3.4-5.0 [facility] Comment on above: Performed By: #### M G, CMP, TSH, T7, BNP #### [facility] [address] [address] [address] Glenys Holly Albumin/Globulin [Mass ratio] 1.1 {ratio} Normal [facility] Comment on above: Performed By: #### M G, CMP, TSH, T7, BNP #### [facility] [address] [place] [address] Dr. Glenys Holly ALP [Catalytic activity/Vol] 78 U/L Normal 46-116 [facility] Comment on above: Performed By: #### M G, CMP, TSH, T7, BNP #### [facility] [address] [place] [address] Dr. Glenys Holly ALT [Catalytic activity/Vol] 10 U/L Critically low 14-59 [facility] Comment on above: Performed By: #### M G, CMP, TSH, T7, BNP #### [facility] [address] [place] [address] Dr. Glenys Holly Anion gap [Moles/Vol] 9.6 mmol/L Normal [facility] Comment on above: Performed By: #### M G, CMP, TSH, T7, BNP #### [facility] [address] [place] [address] Dr. Glenys Holly AST [Catalytic activity/Vol] 18 U/L Normal 15-37 [facility] Comment on above: Performed By: #### M G, CMP, TSH, T7, BNP #### [facility] [address] [place] [address] Dr. Glenys Holly Bilirubin [Mass/Vol] 0.3 mg/dL Normal 0.2-1.0 [facility] Comment on above: Performed By: #### M G, CMP, TSH, T7, BNP #### [facility] [address] [place] [address] Dr. Glenys Holly Calcium [Mass/Vol] 9.1 mg/dL Normal 8.5-10.1 [facility] Comment on above: Performed By: #### M G, CMP, TSH, T7, BNP #### [facility] [address] [place] [address] Dr. Glenys Holly Chloride [Moles/Vol] 102 mmol/L Normal 98-107 [facility] Comment on above: Performed By: #### M G, CMP, TSH, T7, BNP #### [facility] [address] [place] [address] Dr. Glenys Holly CO2 [Moles/Vol] 30.3 mmol/L Normal 21.0-32.0 [facility] Comment on above: Performed By: #### M G, CMP, TSH, T7, BNP #### [facility] [address] [place] [address] Dr. Glenys Holly Creatinine [Mass/Vol] 0.83 mg/dL Normal 0.55-1.02 [facility] Comment on above: Performed By: #### M G, CMP, TSH, T7, BNP #### [facility] [address] [place] [address] Dr. Glenys Holly EGFR-AF SWEDISH >60 Normal >=60 [facility] Comment on above: Performed By: #### M G, CMP, TSH, T7, BNP #### [facility] [address] [place] [address] Dr. Glenys Holly EGFR-NON AF SWEDISH >60 Normal >=60 [facility] Comment on above: Performed By: #### M G, CMP, TSH, T7, BNP #### [facility] [address] [place] [address] Dr. Glenys Holly Globulin (S) [Mass/Vol] 2.8 g/dL Normal [facility] Comment on above: Performed By: #### M G, CMP, TSH, T7, BNP #### [facility] [address] [place] [address] Dr. Glenys Holly Glucose [Mass/Vol] 105 mg/dL Normal 74-106 [facility] Comment on above: Performed By: #### M G, CMP, TSH, T7, BNP #### [facility] [address] [address] [address] Glenys Holly Potassium [Moles/Vol] 2.9 mmol/L Critically low 3.5-5.1 [facility] Comment on above: Performed By: #### M G, CMP, TSH, T7, BNP #### [facility] [address] [address] [address] Glenys Holly Protein [Mass/Vol] 5.8 g/dL Critically low 6.4-8.2 [facility] Comment on above: Performed By: #### M G, CMP, TSH, T7, BNP #### [facility] [address] [address] [address] Glenys Holly Sodium [Moles/Vol] 138 mmol/L Normal 136-145 [facility] Comment on above: Performed By: #### M G, CMP, TSH, T7, BNP #### [facility] [address] [address] [address] Glenys Holly Urea nitrogen [Mass/Vol] 21.0 mg/dL Critically high 7.0-18.0 [facility] Comment on above: Performed By: #### M G, CMP, TSH, T7, BNP #### [facility] [address] [address] [address] Glenys Holly Urea nitrogen/Creatinine [Mass ratio] 25.3 mg/mg Normal [facility] Comment on above: Performed By: #### M G, CMP, TSH, T7, BNP #### [facility] [address] [address] [address] Glenys Holly TROPONIN, HIGH SENSITIVITYon 05-09-2022 HSTROP 49.8 pg/mL Normal 4.0-51.3 [facility] Comment on above: Result Comment: CUT- OFF POINTS HAVE BEEN ESTABLISHED BASED ON THE FOURTH UNIVERSAL DEFINITIONS OF MYOCARDIAL INFARCTION. THE UPPER REFERENCE LIMIT (URL) OF TROPONIN, DEFINED THE 99TH PERCENTILE OF cTnI DISTRIBUTION IN A REFERENCE POPULATION, HAS BEEN CONFIRMED THE DECISION THRESHOLD FOR AL DIAGNOSIS. Performed By: #### M G, CMP, TSH, T7, BNP #### [facility] [address] [address] [address] Glenys Holly BNPon 05-08-2022 Natriuretic peptide B (Bld) [Mass/Vol] 2723.0 pg/mL Critically high <=1,800.0 [facility] Comment on above: Performed By: #### C MP, HSTROPN, BNP ####[facility] [address] [address]Dr. Glenys Holly CBC AUTO DIFFon 05-08-2022 BASO # 0.0 103/ul Normal 0.0-0.1 [facility] Comment on above: Performed By: #### M G, CMP, TSH, T7, BNP #### [facility] [address] [place] [address] Dr. Glenys Holly Basophils/100 WBC (Bld) 0.2 % Normal 0.2-2.0 [facility] Comment on above: Performed By: #### M G, CMP, TSH, T7, BNP #### [facility] [address] [address] [address] Glenys Holly EO # 0.0 103/ul Normal 0.0-0.7 [facility] Comment on above: Performed By: #### M G, CMP, TSH, T7, BNP #### [facility] [address] [address] [address] Glenys Holly Eosinophils/100 WBC (Bld) 0.1 % Critically low 0.9-7.0 [facility] Comment on above: Performed By: #### M G, CMP, TSH, T7, BNP #### [facility] [address] [place] [address] Dr. Glenys Holly Erythrocyte distribution width (RBC) [Ratio] 15.9 % Critically high 11.0-15.0 [facility] Comment on above: Performed By: #### M G, CMP, TSH, T7, BNP #### [facility] [address] [place] [address] Dr. Glenys Holly Hematocrit (Bld) [Volume fraction] 38.0 % Normal 36.0-48.0 [facility] Comment on above: Performed By: #### M G, CMP, TSH, T7, BNP #### [facility] [address] [place] [address] Dr. Glenys Holly Hemoglobin (Bld) [Mass/Vol] 12.5 g/dL Normal 12.0-16.0 [facility] Comment on above: Performed By: #### M G, CMP, TSH, T7, BNP #### [facility] [address] [place] [address] Dr. Glenys Holly IG # 0.17 10e3/ul Critically high 0.00-0.03 [facility] Comment on above: Performed By: #### M G, CMP, TSH, T7, BNP #### [facility] [address] [place] [address] Dr. Glenys Holly IG % 1.1 % Critically high 0.0-0.5 [facility] Comment on above: Performed By: #### M G, CMP, TSH, T7, BNP #### [facility] [address] [place] [address] Dr. Glenys Holly LYMPH # 1.0 103/ul Critically low 1.2-3.8 [facility] Comment on above: Performed By: #### M G, CMP, TSH, T7, BNP #### [facility] [address] [place] [address] Dr. Glenys Holly Lymphocytes/100 WBC (Bld) 6.2 % Critically low 20.5-60.0 [facility] Comment on above: Performed By: #### M G, CMP, TSH, T7, BNP #### [facility] [address] [place] [address] Dr. Glenys Holly MANUAL DIFF REQ NO Normal [facility] Comment on above: Performed By: #### M G, CMP, TSH, T7, BNP #### [facility] [address] [place] [address] Dr. Glenys Holly MCH (RBC) [Entitic mass] 30.1 pg Normal 26.7-34.0 [facility] Comment on above: Performed By: #### M G, CMP, TSH, T7, BNP #### [facility] [address] [place] [address] Dr. Glenys Holly MCHC (RBC) [Mass/Vol] 32.9 g/dL Normal 29.9-35.2 [facility] Comment on above: Performed By: #### M G, CMP, TSH, T7, BNP #### [facility] [address] [place] [address] Dr. Glenys Holly MCV (RBC) [Entitic vol] 91.6 fL Normal 81.0-99.0 [facility] Comment on above: Performed By: #### M G, CMP, TSH, T7, BNP #### [facility] [address] [place] [address] Dr. Glenys Holly MONO # 0.8 103/ul Normal 0.3-0.8 [facility] Comment on above: Performed By: #### M G, CMP, TSH, T7, BNP #### [facility] [address] [place] [address] Dr. Glenys Holly Monocytes/100 WBC (Bld) 5.2 % Normal 1.7-12.0 [facility] Comment on above: Performed By: #### M G, CMP, TSH, T7, BNP #### [facility] [address] [place] [address] Dr. Glenys Holly NEUT # 14.0 103/ul Critically high 1.4-6.5 [facility] Comment on above: Performed By: #### M G, CMP, TSH, T7, BNP #### [facility] [address] [place] [address] Dr. Glenys Holly Neutrophils/100 WBC (Bld) 87.2 % Critically high 43.0-75.0 [facility] Comment on above: Performed By: #### M G, CMP, TSH, T7, BNP #### [facility] [address] [place] [address] Dr. Glenys Holly Platelet mean volume (Bld) [Entitic vol] 11.7 fL Normal 9.5-13.5 [facility] Comment on above: Performed By: #### M G, CMP, TSH, T7, BNP #### [facility] [address] [place] [address] Dr. Glenys Holly PLT 285 103/ul Normal 150-450 [facility] Comment on above: Performed By: #### M G, CMP, TSH, T7, BNP #### [facility] [address] [place] [address] Dr. Glenys Holly RBC 4.15 106/ul Critically low 4.20-5.40 [facility] Comment on above: Performed By: #### M G, CMP, TSH, T7, BNP #### [facility] [address] [place] [address] Dr. Glenys Holly WBC 16.0 103/ul Critically high 4.0-11.0 [facility] Comment on above: Performed By: #### M G, CMP, TSH, T7, BNP #### [facility] [address] [place] [address] Dr. Glenys Holly PROF 14(COMP METB)on 05-08- 022 Albumin [Mass/Vol] 2.7 g/dL Critically low 3.4-5.0 [facility] Comment on above: Performed By: #### C MP, HSTROPN, BNP #### [facility] [address] [place] [address] Dr. Glenys Holly Albumin/Globulin [Mass ratio] 1.0 {ratio} Normal [facility] Comment on above: Performed By: #### C MP, HSTROPN, BNP #### [facility] [address] [place] [address] Dr. Glenys Holly ALP [Catalytic activity/Vol] 73 U/L Normal 46-116 [facility] Comment on above: Performed By: #### C MP, HSTROPN, BNP #### [facility] [address] [place] [address] Dr. Glenys Holly ALT [Catalytic activity/Vol] 11 U/L Critically low 14-59 [facility] Comment on above: Performed By: #### C MP, HSTROPN, BNP #### [facility] [address] [place] [address] Dr. Glenys Holly Anion gap [Moles/Vol] 10.5 mmol/L Normal [facility] Comment on above: Performed By: #### C MP, HSTROPN, BNP #### [facility] [address] [place] [address] Dr. Glenys Holly AST [Catalytic activity/Vol] 21 U/L Normal 15-37 [facility] Comment on above: Performed By: #### C MP, HSTROPN, BNP #### [facility] [address] [place] [address] Dr. Glenys Holly Bilirubin [Mass/Vol] 0.3 mg/dL Normal 0.2-1.0 [facility] Comment on above: Performed By: #### C MP, HSTROPN, BNP #### [facility] [address] [place] [address] Dr. Glenys Holly Calcium [Mass/Vol] 8.6 mg/dL Normal 8.5-10.1 [facility] Comment on above: Performed By: #### C MP, HSTROPN, BNP #### [facility] [address] [place] [address] Dr. Glenys Holly Chloride [Moles/Vol] 106 mmol/L Normal 98-107 [facility] Comment on above: Performed By: #### C MP, HSTROPN, BNP #### [facility] [address] [place] [address] Dr. Glenys Holly CO2 [Moles/Vol] 29.0 mmol/L Normal 21.0-32.0 [facility] Comment on above: Performed By: #### C MP, HSTROPN, BNP #### [facility] [address] [place] [address] Dr. Glenys Holly Creatinine [Mass/Vol] 0.88 mg/dL Normal 0.55-1.02 [facility] Comment on above: Performed By: #### C MP, HSTROPN, BNP #### [facility] [address] [place] [address] Dr. Glenys Holly EGFR-AF SWEDISH >60 Normal >=60 [facility] Comment on above: Performed By: #### C MP, HSTROPN, BNP #### [facility] [address] [address] [address] Glenys Holly EGFR-NON AF SWEDISH >60 Normal >=60 [facility] Comment on above: Performed By: #### C MP, HSTROPN, BNP #### [facility] [address] [address] [address] Glenys Holly Globulin (S) [Mass/Vol] 2.6 g/dL Normal [facility] Comment on above: Performed By: #### C MP, HSTROPN, BNP #### [facility] [address] [place] [address] Dr. Glenys Holly Glucose [Mass/Vol] 116 mg/dL Critically high 74-106 [facility] Comment on above: Performed By: #### C MP, HSTROPN, BNP #### [facility] [address] [place] [address] Dr. Glenys Holly Potassium [Moles/Vol] 3.5 mmol/L Normal 3.5-5.1 [facility] Comment on above: Performed By: #### C MP HSTROPN, BNP #### [facility] [address] [place] [address] Dr. Glenys Holly Protein [Mass/Vol] 5.3 g/dL Critically low 6.4-8.2 [facility] Comment on above: Performed By: #### C MP, HSTROPN, BNP #### [facility] [address] [place] [address] Dr. Glenys Holly Sodium [Moles/Vol] 142 mmol/L Normal 136-145 [facility] Comment on above: Performed By: #### C MP, HSTROPN, BNP #### [facility] [address] [address] [address] Glenys Holly Urea nitrogen [Mass/Vol] 23.0 mg/dL Critically high 7.0-18.0 [facility] Comment on above: Performed By: #### C MP, HSTROPN, BNP #### [facility] [address] [place] [address] Dr. Glenys Holyl Urea nitrogen/Creatinine [Mass ratio] 26.1 mg/mg Normal [facility] Comment on above: Performed By: #### C MP, HSTROPN, BNP #### [facility] [address] [address] [address] Glenys Holly TROPONIN, HIGH SENSITIVITYon 05-08-2022 HSTROP 60.8 pg/mL Critically high 4.0-51.3 [facility] Comment on above: Result Comment: CUT- OFF POINTS HAVE BEEN ESTABLISHED BASED ON THE FOURTH UNIVERSAL DEFINITIONS OF MYOCARDIAL INFARCTION. THE UPPER REFERENCE LIMIT (URL) OF TROPONIN, DEFINED THE 99TH PERCENTILE OF cTnI DISTRIBUTION IN A REFERENCE POPULATION, HAS BEEN CONFIRMED THE DECISION THRESHOLD FOR AL DIAGNOSIS. Performed By: #### C MP, HSTROPN, BNP ####[facility] [address] [address]Dr. Glenys Holly BNPon 05-07-2022 Natriuretic peptide B (Bld) [Mass/Vol] 1476.0 pg/mL Normal <=1,800.0 [facility] Comment on above: Performed By: #### C MP, HSTROPN, BNP ####[facility] [address] [address]Dr. Glenys Holly CBC AUTO DIFFon 05-07-2022 BASO # 0.0 103/ul Normal 0.0-0.1 [facility] Comment on above: Performed By: #### M G, CMP, TSH, T7, BNP #### [facility] [address] [address] [address] Glenys Holly Basophils/100 WBC (Bld) 0.1 % Critically low 0.2-2.0 [facility] Comment on above: Performed By: #### M G, CMP, TSH, T7, BNP #### [facility] [address] [place] [address] Dr. Glenys Holly EO # 0.0 103/ul Normal 0.0-0.7 [facility] Comment on above: Performed By: #### M G, CMP, TSH, T7, BNP #### [facility] [address] [place] [address] Dr. Glenys Holly Eosinophils/100 WBC (Bld) 0.0 % Critically low 0.9-7.0 [facility] Comment on above: Performed By: #### M G, CMP, TSH, T7, BNP #### [facility] [address] [place] [address] Dr. Glenys Holly Erythrocyte distribution width (RBC) [Ratio] 16.3 % Critically high 11.0-15.0 [facility] Comment on above: Performed By: #### M G, CMP, TSH, T7, BNP #### [facility] [address] [place] [address] Dr. Glenys Holly Hematocrit (Bld) [Volume fraction] 34.1 % Critically low 36.0-48.0 [facility] Comment on above: Performed By: #### M G, CMP, TSH, T7, BNP #### [facility] [address] [place] [address] Dr. Glenys Holly Hemoglobin (Bld) [Mass/Vol] 11.2 g/dL Critically low 12.0-16.0 [facility] Comment on above: Performed By: #### M G, CMP, TSH, T7, BNP #### [facility] [address] [place] [address] Dr. Glenys Holly IG # 0.22 10e3/ul Critically high 0.00-0.03 [facility] Comment on above: Performed By: #### M G, CMP, TSH, T7, BNP #### [facility] [address] [place] [address] Dr. Glenys Holly IG % 1.0 % Critically high 0.0-0.5 [facility] Comment on above: Performed By: #### M G, CMP, TSH, T7, BNP #### [facility] [address] [place] [address] Dr. Glenys Holly LYMPH # 1.3 103/ul Normal 1.2-3.8 [facility] Comment on above: Performed By: #### M G, CMP, TSH, T7, BNP #### [facility] [address] [place] [address] Dr. Glenys Holly Lymphocytes/100 WBC (Bld) 6.0 % Critically low 20.5-60.0 [facility] Comment on above: Performed By: #### M G, CMP, TSH, T7, BNP #### [facility] [address] [place] [address] Dr. Glenys Holly MANUAL DIFF REQ NO Normal [facility] Comment on above: Performed By: #### M G, CMP, TSH, T7, BNP #### [facility] [address] [place] [address] Dr. Glenys Holly MCH (RBC) [Entitic mass] 30.7 pg Normal 26.7-34.0 [facility] Comment on above: Performed By: #### M G, CMP, TSH, T7, BNP #### [facility] [address] [place] [address] Dr. Glenys Holly MCHC (RBC) [Mass/Vol] 32.8 g/dL Normal 29.9-35.2 [facility] Comment on above: Performed By: #### M G, CMP, TSH, T7, BNP #### [facility] [address] [place] [address] Dr. Glenys Holly MCV (RBC) [Entitic vol] 93.4 fL Normal 81.0-99.0 [facility] Comment on above: Performed By: #### M G, CMP, TSH, T7, BNP #### [facility] [address] [place] [address] Dr. Glenys Holly MONO # 1.1 103/ul Critically high 0.3-0.8 [facility] Comment on above: Performed By: #### M G, CMP, TSH, T7, BNP #### [facility] [address] [place] [address] Dr. Glenys Holly Monocytes/100 WBC (Bld) 4.8 % Normal 1.7-12.0 [facility] Comment on above: Performed By: #### M G, CMP, TSH, T7, BNP #### [facility] [address] [place] [address] Dr. Glenys Holly NEUT # 19.4 103/ul Critically high 1.4-6.5 [facility] Comment on above: Performed By: #### M G, CMP, TSH, T7, BNP #### [facility] [address] [place] [address] Dr. Glenys Holly Neutrophils/100 WBC (Bld) 88.1 % Critically high 43.0-75.0 [facility] Comment on above: Performed By: #### M G, CMP, TSH, T7, BNP #### [facility] [address] [place] [address] Dr. Glenys Holly Platelet mean volume (Bld) [Entitic vol] 11.6 fL Normal 9.5-13.5 [facility] Comment on above: Performed By: #### M G, CMP, TSH, T7, BNP #### [facility] [address] [place] [address] Dr. Glenys Holly PLT 309 103/ul Normal 150-450 [facility] Comment on above: Performed By: #### M G, CMP, TSH, T7, BNP #### [facility] [address] [place] [address] Dr. Glenys Holly RBC 3.65 106/ul Critically low 4.20-5.40 [facility] Comment on above: Performed By: #### M G, CMP, TSH, T7, BNP #### [facility] [address] [place] [address] Dr. Glenys Holly WBC 22.0 103/ul Critically high 4.0-11.0 [facility] Comment on above: Performed By: #### M G, CMP, TSH, T7, BNP #### [facility] [address] [place] [address] Dr. Glenys Holly PROF 14(COMP METB)on 022 Albumin [Mass/Vol] 2.5 g/dL Critically low 3.4-5.0 [facility] Comment on above: Performed By: #### C MP, HSTROPN, BNP ####[facility] [address] [address]Dr. Glenys Holly Albumin/Globulin [Mass ratio] 1.0 {ratio} Normal [facility] Comment on above: Performed By: #### C MP, HSTROPN, BNP ####[facility] [address] [address]Dr. Glenys Holly ALP [Catalytic activity/Vol] 69 U/L Normal 46-116 [facility] Comment on above: Performed By: #### C MP, HSTROPN, BNP ####[facility] [address] [address]Dr. Karinaparmjit Holly ALT [Catalytic activity/Vol] 12 U/L Critically low 14-59 [facility] Comment on above: Performed By: #### C MP, HSTROPN, BNP ####[facility] [address] [place], [place] [address]Dr. Glenys Holly Anion gap [Moles/Vol] 10.9 mmol/L Normal [facility] Comment on above: Performed By: #### C MP, HSTROPN, BNP ####[facility] [address] [place], [place] [address]Dr. Karinaparmjit Holly AST [Catalytic activity/Vol] 25 U/L Normal 15-37 [facility] Comment on above: Performed By: #### C MP, HSTROPN, BNP ####[facility] [address] [place], [place] [address]Dr. Glenys Holly Bilirubin [Mass/Vol] 0.1 mg/dL Critically low 0.2-1.0 [facility] Comment on above: Performed By: #### C MP, HSTROPN, BNP ####[facility] [address] [place], [place] [address]Dr. Glenys Holly Calcium [Mass/Vol] 9.1 mg/dL Normal 8.5-10.1 [facility] Comment on above: Performed By: #### C MP, HSTROPN, BNP ####[facility] [address] [address]Dr. Glenys Holly Chloride [Moles/Vol] 110 mmol/L Critically high 98-107 [facility] Comment on above: Performed By: #### C MP, HSTROPN, BNP ####[facility] [address] [address]Dr. Glenys Holly CO2 [Moles/Vol] 24.8 mmol/L Normal 21.0-32.0 [facility] Comment on above: Performed By: #### C MP, HSTROPN, BNP ####[facility] [address] [address]Dr. Glenys Holly Creatinine [Mass/Vol] 0.87 mg/dL Normal 0.55-1.02 [facility] Comment on above: Performed By: #### C MP, HSTROPN, BNP ####[facility] [address] [address]Dr. Glenys Holly EGFR-AF SWEDISH >60 Normal >=60 [facility] Comment on above: Performed By: #### C MP, HSTROPN, BNP ####[facility] [address] [address]Dr. Glenys Holly EGFR-NON AF SWEDISH >60 Normal >=60 [facility] Comment on above: Performed By: #### C MP, HSTROPN, BNP ####[facility] [address] [address]Dr. Glenys Holly Globulin (S) [Mass/Vol] 2.5 g/dL Normal [facility] Comment on above: Performed By: #### C MP, HSTROPN, BNP ####[facility] [address] [address]Dr. Glenys Holly Glucose [Mass/Vol] 128 mg/dL Critically high 74-106 [facility] Comment on above: Performed By: #### C MP, HSTROPN, BNP ####[facility] [address] [address]Dr. Glenys Holly Potassium [Moles/Vol] 4.7 mmol/L Normal 3.5-5.1 [facility] Comment on above: Performed By: #### C MP, HSTROPN, BNP ####[facility] [address] [address]Dr. Glenys Holly Protein [Mass/Vol] 5.0 g/dL Critically low 6.4-8.2 [facility] Comment on above: Performed By: #### C MP, HSTROPN, BNP ####[facility] [address] [address]Dr. Glenys Holly Sodium [Moles/Vol] 141 mmol/L Normal 136-145 [facility] Comment on above: Performed By: #### C MP, HSTROPN, BNP ####[facility] [address] [address]Dr. Glenys Holly Urea nitrogen [Mass/Vol] 28.0 mg/dL Critically high 7.0-18.0 [facility] Comment on above: Performed By: #### C MP, HSTROPN, BNP ####[facility] [address] [address]Dr. Glenys Holly Urea nitrogen/Creatinine [Mass ratio] 32.2 mg/mg Normal [facility] Comment on above: Performed By: #### C MP, HSTROPN, BNP ####[facility] [address] [address]Dr. Glenys Holly TROPONIN, HIGH SENSITIVITYon 05-07-2022 HSTROP 78.5 pg/mL Critically high 4.0-51.3 [facility] Comment on above: Result Comment: CUT- OFF POINTS HAVE BEEN ESTABLISHED BASED ON THE FOURTH UNIVERSAL DEFINITIONS OF MYOCARDIAL INFARCTION. THE UPPER REFERENCE LIMIT (URL) OF TROPONIN, DEFINED THE 99TH PERCENTILE OF cTnI DISTRIBUTION IN A REFERENCE POPULATION, HAS BEEN CONFIRMED THE DECISION THRESHOLD FOR AL DIAGNOSIS. Performed By: #### C MP, HSTROPN, BNP ####[facility] [address] [address]Dr. Glenys Holly XR CHEST 2 Von 05-07-2022 [...] Date: 2022-05-07 10:34 Normal [facility] BNPon 05-06-2022 Natriuretic peptide B (Bld) [Mass/Vol] 1143.0 pg/mL Normal <=1,800.0 [facility] Comment on above: Performed By: #### C MP, BNP ####[facility] [address] [address]Dr. Glenys Holly CBC AUTO DIFFon 05-06-2022 BASO # 0.0 103/ul Normal 0.0-0.1 [facility] Comment on above: Performed By: #### M G, CMP, TSH, T7, BNP #### [facility] [address] [address] [address] Glenys Holly Basophils/100 WBC (Bld) 0.1 % Critically low 0.2-2.0 [facility] Comment on above: Performed By: #### M G, CMP, TSH, T7, BNP #### [facility] [address] [address] [address] Glenys Holly EO # 0.0 103/ul Normal 0.0-0.7 [facility] Comment on above: Performed By: #### M G, CMP, TSH, T7, BNP #### [facility] [address] [address] [address] Glenys Holly Eosinophils/100 WBC (Bld) 0.0 % Critically low 0.9-7.0 [facility] Comment on above: Performed By: #### M G, CMP, TSH, T7, BNP #### [facility] [address] [place] [address] Dr. Glensy Holly Erythrocyte distribution width (RBC) [Ratio] 15.8 % Critically high 11.0-15.0 [facility] Comment on above: Performed By: #### M G, CMP, TSH, T7, BNP #### [facility] [address] [place] [address] Dr. Glenys Holly Hematocrit (Bld) [Volume fraction] 36.7 % Normal 36.0-48.0 [facility] Comment on above: Performed By: #### M G, CMP, TSH, T7, BNP #### [facility] [address] [place] [address] Dr. Glenys Holly Hemoglobin (Bld) [Mass/Vol] 12.3 g/dL Normal 12.0-16.0 [facility] Comment on above: Performed By: #### M G, CMP, TSH, T7, BNP #### [facility] [address] [place] [address] Dr. Glenys Holly IG # 0.10 10e3/ul Critically high 0.00-0.03 [facility] Comment on above: Performed By: #### M G, CMP, TSH, T7, BNP #### [facility] [address] [place] [address] Dr. Glenys Holly IG % 0.5 % Normal 0.0-0.5 [facility] Comment on above: Performed By: #### M G, CMP, TSH, T7, BNP #### [facility] [address] [place] [address] Dr. Glenys Holly LYMPH # 1.4 103/ul Normal 1.2-3.8 [facility] Comment on above: Performed By: #### M G, CMP, TSH, T7, BNP #### [facility] [address] [place] [address] Dr. Glenys Holly Lymphocytes/100 WBC (Bld) 7.2 % Critically low 20.5-60.0 [facility] Comment on above: Performed By: #### M G, CMP, TSH, T7, BNP #### [facility] [address] [place] [address] Dr. Glenys Holly MANUAL DIFF REQ NO Normal [facility] Comment on above: Performed By: #### M G, CMP, TSH, T7, BNP #### [facility] [address] [place] [address] Dr. Glenys Holly MCH (RBC) [Entitic mass] 30.9 pg Normal 26.7-34.0 [facility] Comment on above: Performed By: #### M G, CMP, TSH, T7, BNP #### [facility] [address] [place] [address] Dr. Glenys Holly MCHC (RBC) [Mass/Vol] 33.5 g/dL Normal 29.9-35.2 [facility] Comment on above: Performed By: #### M G, CMP, TSH, T7, BNP #### [facility] [address] [place] [address] Dr. Glenys Holly MCV (RBC) [Entitic vol] 92.2 fL Normal 81.0-99.0 [facility] Comment on above: Performed By: #### M G, CMP, TSH, T7, BNP #### [facility] [address] [place] [address] Dr. Glenys Holly MONO # 0.9 103/ul Critically high 0.3-0.8 [facility] Comment on above: Performed By: #### M G, CMP, TSH, T7, BNP #### [facility] [address] [place] [address] Dr. Glenys Holly Monocytes/100 WBC (Bld) 4.6 % Normal 1.7-12.0 [facility] Comment on above: Performed By: #### M G, CMP, TSH, T7, BNP #### [facility] [address] [place] [address] Dr. Glenys Holly NEUT # 17.4 103/ul Critically high 1.4-6.5 [facility] Comment on above: Performed By: #### M G, CMP, TSH, T7, BNP #### [facility] [address] [address] [address] Glenys Holly Neutrophils/100 WBC (Bld) 87.6 % Critically high 43.0-75.0 [facility] Comment on above: Performed By: #### M G, CMP, TSH, T7, BNP #### [facility] [address] [address] [address] Glenys Holly Platelet mean volume (Bld) [Entitic vol] 11.2 fL Normal 9.5-13.5 [facility] Comment on above: Performed By: #### M G, CMP, TSH, T7, BNP #### [facility] [address] [place] [address] Dr. Glenys Holly PLT 310 103/ul Normal 150-450 [facility] Comment on above: Performed By: #### M G, CMP, TSH, T7, BNP #### [facility] [address] [place] [address] Dr. Glenys Holly RBC 3.98 106/ul Critically low 4.20-5.40 [facility] Comment on above: Performed By: #### M G, CMP, TSH, T7, BNP #### [facility] [address] [place] [address] Dr. Glenys Holly WBC 19.8 103/ul Critically high 4.0-11.0 [facility] Comment on above: Performed By: #### M G, CMP, TSH, T7, BNP #### [facility] [address] [place] [address] Dr. Glenys Holly LACTATE/LACTIC ACIDon 2021 Lactate [Moles/Vol] 1.1 mmol/L Normal 0.4-1.9 [facility] Comment on above: Performed By: #### M G, CMP, TSH, T7, BNP #### [facility] [address] [place] [address] Dr. Glenys Holly POINT OF CARE GLUCOSEon 04-12 Glucose [Mass/Vol] 164 mg/dL Critically high 74-106 [facility] Comment on above: Performed By: #### M G, CMP, TSH, T7, BNP #### [facility] [address] [place], [place] [address] Dr. Glenys Holly PROF 14(COMP METB)on 022 Albumin [Mass/Vol] 2.6 g/dL Critically low 3.4-5.0 [facility] Comment on above: Performed By: #### C MP, BNP ####[facility] [address] [id number] Glenys Holly Albumin/Globulin [Mass ratio] 1.0 {ratio} Normal [facility] Comment on above: Performed By: #### C MP, BNP ####[facility] [address] [address]Dr. Glenys Holly ALP [Catalytic activity/Vol] 88 U/L Normal 46-116 [facility] Comment on above: Performed By: #### C MP, BNP ####[facility] [address] [address]Dr. Glenys Holly ALT [Catalytic activity/Vol] 1 U/L Critically low 14-59 [facility] Comment on above: Performed By: #### C MP, BNP ####[facility] [address] [address]Dr. Glenys Holly Anion gap [Moles/Vol] 9.9 mmol/L Normal [facility] Comment on above: Performed By: #### C MP, BNP ####[facility] [address] [address]Dr. Glenys Holly AST [Catalytic activity/Vol] 19 U/L Normal 15-37 [facility] Comment on above: Performed By: #### C MP, BNP ####[facility] [address] [address]Dr. Glenys Holly Bilirubin [Mass/Vol] 0.2 mg/dL Normal 0.2-1.0 [facility] Comment on above: Performed By: #### C MP, BNP ####[facility] [address] [address]Dr. Glenys Holly Calcium [Mass/Vol] 8.7 mg/dL Normal 8.5-10.1 [facility] Comment on above: Performed By: #### C MP, BNP ####[facility] [address] [address]Dr. Glenys Holly Chloride [Moles/Vol] 108 mmol/L Critically high 98-107 [facility] Comment on above: Performed By: #### C MP, BNP ####[facility] [address] [address]Dr. Glenys Holly CO2 [Moles/Vol] 25.2 mmol/L Normal 21.0-32.0 [facility] Comment on above: Performed By: #### C MP, BNP ####[facility] [address] [place], [place] [address]Dr. Glenys Holly Creatinine [Mass/Vol] 0.80 mg/dL Normal 0.55-1.02 [facility] Comment on above: Performed By: #### C MP, BNP ####[facility] [address] [place], [place] [address]Dr. Glenys Holly EGFR-AF SWEDISH >60 Normal >=60 [facility] Comment on above: Performed By: #### C MP, BNP ####[facility] [address] [place], [place] [address]Dr. Glenys Holly EGFR-NON AF SWEDISH >60 Normal >=60 [facility] Comment on above: Performed By: #### C MP, BNP ####[facility] [address] [place], [place] [address]Dr. Glenys Holly Globulin (S) [Mass/Vol] 2.7 g/dL Normal [facility] Comment on above: Performed By: #### C MP, BNP ####[facility] [address] [address]Dr. Glenys Holly Glucose [Mass/Vol] 123 mg/dL Critically high 74-106 [facility] Comment on above: Performed By: #### C MP, BNP ####[facility] [address] [place], [place] [address]Dr. Glenys Holly Potassium [Moles/Vol] 4.1 mmol/L Normal 3.5-5.1 [facility] Comment on above: Performed By: #### C MP, BNP ####[facility] [id number] [address]Dr. Glenys Holly Protein [Mass/Vol] 5.3 g/dL Critically low 6.4-8.2 [facility] Comment on above: Performed By: #### C MP, BNP ####[facility] [id number] [address]Dr. Glenys Holly Sodium [Moles/Vol] 139 mmol/L Normal 136-145 [facility] Comment on above: Performed By: #### C MP, BNP ####[facility] [address] [address]Dr. Glenys Holly Urea nitrogen [Mass/Vol] 22.0 mg/dL Critically high 7.0-18.0 [facility] Comment on above: Performed By: #### C MP, BNP ####[facility] [address] [address]Dr. Glenys Holly Urea nitrogen/Creatinine [Mass ratio] 27.5 mg/mg Normal [facility] Comment on above: Performed By: #### C MP, BNP ####[facility] [address] [address]DrRatna Holly T3, TOTAL (TRIIODOTHYRONINE) on 05-06-2022 T3, TOTAL 69 ng/dL Critically low 71-180 [facility] Comment on above: Performed By: #### M G, CMP, TSH, T7, BNP #### [facility] [address] [address] [address] Glenys Holly TROPONIN, HIGH SENSITIVITYon 05-06-2022 HSTROP 141.0 pg/mL Critically high 4.0-51.3 [facility] Comment on above: Result Comment: CUT- OFF POINTS HAVE BEEN ESTABLISHED BASED ON THE FOURTH UNIVERSAL DEFINITIONS OF MYOCARDIAL INFARCTION. THE UPPER REFERENCE LIMIT (URL) OF TROPONIN, DEFINED THE 99TH PERCENTILE OF cTnI DISTRIBUTION IN A REFERENCE POPULATION, HAS BEEN CONFIRMED THE DECISION THRESHOLD FOR AL DIAGNOSIS. Performed By: #### M G, CMP, TSH, T7, BNP #### [facility] [address] [address] [address] Glenys Holly AMYLASEon 05-05-2022 Amylase [Catalytic activity/Vol] 26 U/L Normal 25-115 [facility] Comment on above: Performed By: #### M G, CMP, TSH, T7, BNP #### [facility] [address] [address] [address] Glenys Holly BNPon 05-05-2022 Natriuretic peptide B (Bld) [Mass/Vol] 811.0 pg/mL Normal <=1,800.0 [facility] Comment on above: Performed By: #### M G, CMP, TSH, T7, BNP #### [facility] [address] [address] [address] Glenys Holly CARDIAC ADEEL 3-6on 2 CK [Catalytic activity/Vol] 33 U/L Normal 26-192 [facility] Comment on above: Performed By: #### C MREP ####[facility] [address] [address]Dr. Glenys Holly CK.MB [Mass/Vol] 1.13 ng/mL Normal <=3.60 [facility] Comment on above: Performed By: #### C MREP ####[facility] [address] [address]Dr. Glenys Holly HSTROP 164.3 pg/mL Critically high 4.0-51.3 [facility] Comment on above: Result Comment: CUT- OFF POINTS HAVE BEEN ESTABLISHED BASED ON THE FOURTH UNIVERSAL DEFINITIONS OF MYOCARDIAL INFARCTION. THE UPPER REFERENCE LIMIT (URL) OF TROPONIN, DEFINED THE 99TH PERCENTILE OF cTnI DISTRIBUTION IN A REFERENCE POPULATION, HAS BEEN CONFIRMED THE DECISION THRESHOLD FOR AL DIAGNOSIS. Performed By: #### C MREP ####[facility] [address] [address]Dr. Glenys Holly CK [Catalytic activity/Vol] 38 U/L Normal 26-192 [facility] Comment on above: Performed By: #### M G, CMP, TSH, T7, BNP #### [facility] [address] [address] [address] Glenys Holly CK.MB [Mass/Vol] 0.91 ng/mL Normal <=3.60 [facility] Comment on above: Performed By: #### M G, CMP, TSH, T7, BNP #### [facility] [address] [address] [address] Glenys Holly HSTROP 178.2 pg/mL Critically high 4.0-51.3 [facility] Comment on above: Result Comment: CUT- OFF POINTS HAVE BEEN ESTABLISHED BASED ON THE FOURTH UNIVERSAL DEFINITIONS OF MYOCARDIAL INFARCTION. THE UPPER REFERENCE LIMIT (URL) OF TROPONIN, DEFINED THE 99TH PERCENTILE OF cTnI DISTRIBUTION IN A REFERENCE POPULATION, HAS BEEN CONFIRMED THE DECISION THRESHOLD FOR AL DIAGNOSIS. Performed By: #### M G, CMP, TSH, T7, BNP #### [facility] [address] [place] [address] Dr. Glenys Holly CARDIAC ADEEL ADMITon 022 CK [Catalytic activity/Vol] 29 U/L Normal 26-192 [facility] Comment on above: Performed By: #### M G, CMP, TSH, T7, BNP #### [facility] [address] [place] [address] Dr. Glenys Holly CK.MB [Mass/Vol] 0.73 ng/mL Normal <=3.60 [facility] Comment on above: Performed By: #### M G, CMP, TSH, T7, BNP #### [facility] [address] [place] [address] Dr. Glenys Holly HSTROP 191.6 pg/mL Critically high 4.0-51.3 [facility] Comment on above: Result Comment: CUT- OFF POINTS HAVE BEEN ESTABLISHED BASED ON THE FOURTH UNIVERSAL DEFINITIONS OF MYOCARDIAL INFARCTION. THE UPPER REFERENCE LIMIT (URL) OF TROPONIN, DEFINED THE 99TH PERCENTILE OF cTnI DISTRIBUTION IN A REFERENCE POPULATION, HAS BEEN CONFIRMED THE DECISION THRESHOLD FOR AL DIAGNOSIS. Performed By: #### M G, CMP, TSH, T7, BNP #### [facility] [address] [place] [address] Dr. Glenys Holly NEO 79 ng/mL Normal 9-82 [facility] Comment on above: Performed By: #### M G, CMP, TSH, T7, BNP #### [facility] [address] [place] [address] Dr. Glenys Holly CBC W MANUAL DIFFon 05-05-20 ANISOCYTOSIS 1+ Normal [facility] Comment on above: Performed By: #### M G, CMP, TSH, T7, BNP #### [facility] [address] [place] [address] Dr. Glenys Holly ATYPICAL LYMPH # Normal [facility] Comment on above: Performed By: #### M G, CMP, TSH, T7, BNP #### [facility] [address] [place] [address] Dr. Glenys Holly ATYPICAL LYMPH % Normal [facility] Comment on above: Performed By: #### M G, CMP, TSH, T7, BNP #### [facility] [address] [place] [address] Dr. Glenys Holly BAND # 0.2 103/ul Normal 0.0-0.3 [facility] Comment on above: Performed By: #### M G, CMP, TSH, T7, BNP #### [facility] [address] [place] [address] Dr. Glenys Holly BAND % 1 % Normal 0-5 [facility] Comment on above: Performed By: #### M G, CMP, TSH, T7, BNP #### [facility] [address] [place] [address] Dr. Glenys Holly BASOM # 0.00 103/ul Normal 0.00-0.10 [facility] Comment on above: Performed By: #### M G, CMP, TSH, T7, BNP #### [facility] [address] [place] [address] Dr. Glenys Holly BASOM % 0.0 % Critically low 0.2-2.0 [facility] Comment on above: Performed By: #### M G, CMP, TSH, T7, BNP #### [facility] [address] [place] [address] Dr. Glenys Holly BLAST # Normal [facility] Comment on above: Performed By: #### M G, CMP, TSH, T7, BNP #### [facility] [address] [place], [place] [id number] Dr. Glenys Holly BLAST % Normal [facility] Comment on above: Performed By: #### M G, CMP, TSH, T7, BNP #### [facility] [address] [place] [address] Dr. Glenys Holly CORRECTED WBC Normal 4.0-11.0 [facility] Comment on above: Performed By: #### M G, CMP, TSH, T7, BNP #### [facility] [address] [place] [address] Dr. Glenys Holly EOS # 0.00 103/ul Normal 0.00-0.70 [facility] Comment on above: Performed By: #### M G, CMP, TSH, T7, BNP #### [facility] [address] [place] [address] Dr. Glenys Holly EOS% 0.0 % Critically low 0.9-7.0 [facility] Comment on above: Performed By: #### M G, CMP, TSH, T7, BNP #### [facility] [address] [place] [address] Dr. Glenys Holly HCT 41.5 % Normal 36.0-48.0 [facility] Comment on above: Performed By: #### M G, CMP, TSH, T7, BNP #### [facility] [address] [place] [address] Dr. Glenys Holly HGB 14.2 g/dl Normal 12.0-16.0 [facility] Comment on above: Performed By: #### M G, CMP, TSH, T7, BNP #### [facility] [address] [place] [address] Dr. Glenys Holly LYMPHM # 0.96 103/ul Critically low 1.20-3.80 [facility] Comment on above: Performed By: #### M G, CMP, TSH, T7, BNP #### [facility] [address] [place] [address] Dr. Glenys Holly LYMPHM% 6.0 % Critically low 20.5-60.0 [facility] Comment on above: Performed By: #### M G, CMP, TSH, T7, BNP #### [facility] [address] [address] [address] Glenys Holly MCH 31.0 pg Normal 26.7-34.0 [facility] Comment on above: Performed By: #### M G, CMP, TSH, T7, BNP #### [facility] [address] [address] [address] Glenys Holly MCHC 34.2 g/dl Normal 29.9-35.2 [facility] Comment on above: Performed By: #### M G, CMP, TSH, T7, BNP #### [facility] [address] [address] [address] Glenys Holly MCV 90.6 fL Normal 81.0-99.0 [facility] Comment on above: Performed By: #### M G, CMP, TSH, T7, BNP #### [facility] [address] [address] [address] Glenys Holly METAMYELOCYTE # Normal [facility] Comment on above: Performed By: #### M G, CMP, TSH, T7, BNP #### [facility] [address] [address] [address] Glenys Holly METAMYELOCYTE % Normal [facility] Comment on above: Performed By: #### M G, CMP, TSH, T7, BNP #### [facility] [address] [address] [address] Glenys Holly MONOM# 2.56 103/ul Critically high 0.30-0.80 [facility] Comment on above: Performed By: #### M G, CMP, TSH, T7, BNP #### [facility] [address] [address] [address] Glenys Holly MONOM% 16.0 % Critically high 1.7-12.0 [facility] Comment on above: Performed By: #### M G, CMP, TSH, T7, BNP #### [facility] [address] [address] [address] Glenys Holly MPV 11.1 fL Normal 9.5-13.5 [facility] Comment on above: Performed By: #### M G, CMP, TSH, T7, BNP #### [facility] [address] [place] [address] Dr. Glenys Holly MYELOCYTE # Normal [facility] Comment on above: Performed By: #### M G, CMP, TSH, T7, BNP #### [facility] [address] [address] [address] Glenys Holly MYELOCYTE % Normal [facility] Comment on above: Performed By: #### M G, CMP, TSH, T7, BNP #### [facility] [address] [place] [address] Dr. Glenys Holly NRBC Normal [facility] Comment on above: Performed By: #### M G, CMP, TSH, T7, BNP #### [facility] [address] [place] [address] Dr. Glenys Holly PLT 352 103/ul Normal 150-450 [facility] Comment on above: Performed By: #### M G, CMP, TSH, T7, BNP #### [facility] [address] [place] [address] Dr. Glenys Holly RBC 4.58 106/ul Normal 4.20-5.40 [facility] Comment on above: Performed By: #### M G, CMP, TSH, T7, BNP #### [facility] [address] [place] [address] Dr. Glenys Holly RDW 15.2 % Critically high 11.0-15.0 [facility] Comment on above: Performed By: #### M G, CMP, TSH, T7, BNP #### [facility] [address] [place] [address] Dr. Glenys Holly SEG # 12.32 103/ul Critically high 1.40-6.50 [facility] Comment on above: Performed By: #### M G, CMP, TSH, T7, BNP #### [facility] [address] [place] [address] Dr. Glenys Holly SEG % 77.0 % Critically high 43.0-75.0 [facility] Comment on above: Performed By: #### M G, CMP, TSH, T7, BNP #### [facility] [address] [place], [place] [address] Dr. Glenys Holly WBC 16.0 103/ul Critically high 4.0-11.0 [facility] Comment on above: Performed By: #### M G, CMP, TSH, T7, BNP #### [facility] [address] [place], [place] [address] Dr. Glenys Holly CTA CHEST WO W [...] Date: 2022-05-05 09:32 Normal [facility] CULTURE BLOODon 05-05-2022 Microscopic examination of blood, culture Culture Observations: NO GROWTH AT 5 DAYS. Normal [facility] Comment on above: Performed By: #### B [id number] ####[facility] [address] [place], [place] [address]Xx. Glenys Holly Microscopic examination of blood, culture Culture Observations: NO GROWTH AT 5 DAYS. Normal [facility] Comment on above: Performed By: #### B LDCX1 ####[facility] [address] [place], [place] [address]Zj. Glenys Holly CULTURE URINEon 05-05-2022 CULTURE URINE Culture Observations : LIGHT GROWTH OF MIXED GENITAL NIDA. NO POTENTIAL PATHOGENS SEEN. Normal [facility] Comment on above: Performed By: #### U RCX ####[facility] [address] [place], [place] [address]Ag. Glenys Holly [facility]on 04-12 SARS-CoV-2 (COVID-19) RNA KINZA+probe Ql (Unsp spec) Not detected Normal NOT DETECTED [facility] Comment on above: Result Comment: When diagnostic [...] for this test is supported by the [place] of [employer] and Human Service's declaration that [...] By: #### C VDTBH #### [facility] [address] [place], [place] [address] Dr. Glenys Holly ECHOCARDIO M/2D COMPLETEon 1 07-05-2021 ECHOCARDIO M/2D COMPLETE Patient: JUDITH KHAN Exam Date: 05/05/2022 : 1945 Gender:F Ordering : DR KAVON SAMS . Admission #: [id number] Family : Order #: [id number] CLICK HERE TO VIEW EXAM ECHOCARDIOGRAM REPORT [...] M.D. on 05/10/2022 at 13:12 Normal [facility] INFLUENZA A AND B AGon 05-05 INFLUANEGH SEE BELOW Normal [facility] Comment on above: Result Comment: Nega tive for Flu A protein angiten. Infection due to Flu A cannot be ruled out. Flu A angiten in the sample may be below the detection limit of the test. Performed By: #### M G, CMP, TSH, T7, BNP #### [facility] [address] [place] [address] Dr. Glenys Holly [facility] SEE BELOW Normal [facility] Comment on above: Result Comment: Nega tive for Flu B protein antigen. Infection due to Flu B cannot be ruled out. Flu B antigen in the sample may be below the detection limit of the test. Performed By: #### M G, CMP, TSH, T7, BNP #### [facility] [address] [place] [address] Dr. Glenys Holly INFLUENZA A AG Negative Normal NEGATIVE SEE COMMENT [facility] Comment on above: Performed By: #### M G, CMP, TSH, T7, BNP #### [facility] [address] [place] [address] Dr. Glenys Holly INFLUENZA B AG Negative Normal NEGATIVE SEE COMMENT [facility] Comment on above: Performed By: #### M G, CMP, TSH, T7, BNP #### [facility] [address] [place] [address] Dr. Glenys Holly INTERNAL CONTROLS Within Normal Limits Normal Wi thin Normal Limits [facility] Comment on above: Performed By: #### M G, CMP, TSH, T7, BNP #### [facility] [address] [place] [address] Dr. Glenys Holly LACTATE/LACTIC ACIDon 2021 Lactate [Moles/Vol] 5.2 mmol/L Critically high 0.4-1.9 [facility] Comment on above: Performed By: #### M G, CMP, TSH, T7, BNP #### [facility] [address] [place] [address] Dr. Glenys Holly Lactate [Moles/Vol] 4.8 mmol/L Critically high 0.4-1.9 [facility] Comment on above: Performed By: #### M G, CMP, TSH, T7, BNP #### [facility] [address] [place] [address] Dr. Glenys Holly LIPASEon 05-05-2022 Lipase [Catalytic activity/Vol] 64.0 U/L Critically low 73.0-393.0 [facility] Comment on above: Performed By: #### M G, CMP, TSH, T7, BNP #### [facility] [address] [place] [address] Dr. Glenys Holly PROF CHEM 8 (BAS METB)on Anion gap [Moles/Vol] 12.6 mmol/L Normal [facility] Comment on above: Performed By: #### M G, CMP, TSH, T7, BNP #### [facility] [address] [place] [address] Dr. Glenys Holly Calcium [Mass/Vol] 9.6 mg/dL Normal 8.5-10.1 [facility] Comment on above: Performed By: #### M G, CMP, TSH, T7, BNP #### [facility] [address] [place] [address] Dr. Glenys Holly Chloride [Moles/Vol] 102 mmol/L Normal 98-107 [facility] Comment on above: Performed By: #### M G, CMP, TSH, T7, BNP #### [facility] [address] [place] [address] Dr. Glenys Holly CO2 [Moles/Vol] 26.3 mmol/L Normal 21.0-32.0 [facility] Comment on above: Performed By: #### M G, CMP, TSH, T7, BNP #### [facility] [address] [place] [address] Dr. Glenys Holly Creatinine [Mass/Vol] 1.00 mg/dL Normal 0.55-1.02 [facility] Comment on above: Performed By: #### M G, CMP, TSH, T7, BNP #### [facility] [address] [place] [address] Dr. Glenys Holly EGFR-AF SWEDISH >60 Normal >=60 [facility] Comment on above: Performed By: #### M G, CMP, TSH, T7, BNP #### [facility] [address] [address] [address] Glenys Holly EGFR-NON AF SWEDISH 54 mL/min/1.73m2 Critically low >=60 [facility] Comment on above: Performed By: #### M G, CMP, TSH, T7, BNP #### [facility] [address] [place] [address] Dr. Glenys Holly Glucose [Mass/Vol] 128 mg/dL Critically high 74-106 [facility] Comment on above: Performed By: #### M G, CMP, TSH, T7, BNP #### [facility] [address] [place] [address] Dr. Glenys Holly Potassium [Moles/Vol] 2.9 mmol/L Critically low 3.5-5.1 [facility] Comment on above: Performed By: #### M G, CMP, TSH, T7, BNP #### [facility] [address] [place] [address] Dr. Glenys Holly Sodium [Moles/Vol] 138 mmol/L Normal 136-145 [facility] Comment on above: Performed By: #### M G, CMP, TSH, T7, BNP #### [facility] [address] [place] [address] Dr. Glenys Holly Urea nitrogen [Mass/Vol] 20.0 mg/dL Critically high 7.0-18.0 [facility] Comment on above: Performed By: #### M G, CMP, TSH, T7, BNP #### [facility] [address] [place] [address] Dr. Glenys Holly Urea nitrogen/Creatinine [Mass ratio] 20.0 mg/mg Normal [facility] Comment on above: Performed By: #### M G, CMP, TSH, T7, BNP #### [facility] [address] [place] [address] Dr. Glenys Holly T4on 05-05-2022 T4 [Mass/Vol] 7.40 ug/dL Normal 4.80-13.90 [facility] Comment on above: Performed By: #### M G, CMP, TSH, T7, BNP #### [facility] [address] [place] [address] Dr. Glenys Holly TSHon 05-05-2022 TSH 0.198 uIU/mL Critically low 0.358-3.740 [facility] Comment on above: Performed By: #### M G, CMP, TSH, T7, BNP #### [facility] [address] [place] [address] Dr. Glenys Holly UA RANDOM W/MICROSCOPICon BACTERIA NONE SEEN Normal NONE SEEN [facility] Comment on above: Performed By: #### M G, CMP, TSH, T7, BNP #### [facility] [address] [place] [address] Dr. Glenys Holly Bilirubin Ql (U) Negative Normal NEGATIVE [facility] Comment on above: Performed By: #### M G, CMP, TSH, T7, BNP #### [facility] [address] [place] [address] Dr. Glenys Holly CAST NONE SEEN Normal NONE SEEN [facility] Comment on above: Performed By: #### M G, CMP, TSH, T7, BNP #### [facility] [address] [place] [address] Dr. Glenys Holly Clarity (U) SL CLOUDY Abnormal CLEAR [facility] Comment on above: Performed By: #### M G, CMP, TSH, T7, BNP #### [facility] [address] [place] [address] Dr. Glenys Holly Color (U) LT. YELLOW Normal YELLOW [facility] Comment on above: Performed By: #### M G, CMP, TSH, T7, BNP #### [facility] [address] [place] [address] Dr. Glenys Holly Crystals LM Nom (Urine sed) NONE SEEN Normal NONE SEEN [facility] Comment on above: Performed By: #### M G, CMP, TSH, T7, BNP #### [facility] [address] [address] [address] Glenys Holly Epithelial cells LM Ql (Urine sed) FEW Abnormal NONE SEEN /RARE [facility] Comment on above: Performed By: #### M G, CMP, TSH, T7, BNP #### [facility] [address] [address] [address] Glenys Holly Glucose Ql (U) Negative Normal NEGATIVE [facility] Comment on above: Performed By: #### M G, CMP, TSH, T7, BNP #### [facility] [address] [address] [address] Glenys Holly Hemoglobin Ql (U) MODERATE Abnormal NEGATIVE [facility] Comment on above: Performed By: #### M G, CMP, TSH, T7, BNP #### [facility] [address] [place] [address] Dr. Glenys Holly Ketones Ql (U) Negative Normal NEGATIVE [facility] Comment on above: Performed By: #### M G, CMP, TSH, T7, BNP #### [facility] [address] [address] [address] Glenys Holly LEUKOCYTES Negative Normal NEGATIVE [facility] Comment on above: Performed By: #### M G, CMP, TSH, T7, BNP #### [facility] [address] [address] [address] Glenys Holly MUCOUS NONE SEEN Normal NONE SEEN [facility] Comment on above: Performed By: #### M G, CMP, TSH, T7, BNP #### [facility] [address] [address] [address] Glenys Holly Nitrite Ql (U) Negative Normal NEGATIVE [facility] Comment on above: Performed By: #### M G, CMP, TSH, T7, BNP #### [facility] [address] [address] [address] Glenys Holly pH (U) 6.0 [pH] Normal 5-9 [facility] Comment on above: Performed By: #### M G, CMP, TSH, T7, BNP #### [facility] [address] [address] [address] Glenys Holly RBC 2-5 Abnormal 0-2 [facility] Comment on above: Performed By: #### M G, CMP, TSH, T7, BNP #### [facility] [address] [address] [address] Glenys Holly SPEC GRAVITY 1.010 Normal 1.005-<=1.0 25 [facility] Comment on above: Performed By: #### M G, CMP, TSH, T7, BNP #### [facility] [address] [address] [address] Glenys Holly UA PROTEIN TRACE Normal NEGATIVE/ TRACE [facility] Comment on above: Performed By: #### M G, CMP, TSH, T7, BNP #### [facility] [address] [address] [address] Glenys Holly Urobilinogen Qn (U) 0.2 {Phoebe'U}/dL Normal 0.2 - 1. 0 [facility] Comment on above: Performed By: #### M G, CMP, TSH, T7, BNP #### [facility] [address] [address] [address] Glenys Holly WBC NONE SEEN Normal NONE SEEN [facility] Comment on above: Performed By: #### M G, CMP, TSH, T7, BNP #### [facility] [address] [address] [address] Glenys Holly XR CHEST 1 Von [...] Date: 2022-05-05 07:41 Normal [facility] CULTURE URINEon 03-30-2022 CULTURE URINE Culture Observations : GREATER THAN 4 ORGANISMS PRESENT. PLEASE RESUBMIT CLEAN CATCH MID-STREAM URINE IF CLINICALLY INDICATED. Normal [facility] Comment on above: Performed By: #### U RCX ####[facility] [id number] [address]Dr. Glenys Holly CBC W MANUAL DIFFon 03-29-20 22 ATYPICAL LYMPH # Normal [facility] Comment on above: Performed By: #### M G, CMP, TSH, T7, BNP #### [facility] [address] [address] [address] Glenys Holly ATYPICAL LYMPH % Normal [facility] Comment on above: Performed By: #### M G, CMP, TSH, T7, BNP #### [facility] [address] [address] [address] Glenys Holly BAND # Normal 0.0-0.3 [facility] Comment on above: Performed By: #### M G, CMP, TSH, T7, BNP #### [facility] [address] [address] [address] Glenys Holly BAND % Normal 0-5 [facility] Comment on above: Performed By: #### M G, CMP, TSH, T7, BNP #### [facility] [address] [address] [address] Glenys Holly BASOM # 0.20 103/ul Critically high 0.00-0.10 [facility] Comment on above: Performed By: #### M G, CMP, TSH, T7, BNP #### [facility] [address] [address] [address] Glenys Holly BASOM % 1.0 % Normal 0.2-2.0 [facility] Comment on above: Performed By: #### M G, CMP, TSH, T7, BNP #### [facility] [address] [address] [address] Glenys Holly BLAST # Normal [facility] Comment on above: Performed By: #### M G, CMP, TSH, T7, BNP #### [facility] [address] [address] [address] Glenys Holly BLAST % Normal [facility] Comment on above: Performed By: #### M G, CMP, TSH, T7, BNP #### [facility] [address] [address] [address] Glenys Holly CORRECTED WBC Normal 4.0-11.0 [facility] Comment on above: Performed By: #### M G, CMP, TSH, T7, BNP #### [facility] [address] [address] [address] Glenys Holly EOS # 0.00 103/ul Normal 0.00-0.70 [facility] Comment on above: Performed By: #### M G, CMP, TSH, T7, BNP #### [facility] [address] [place] [address] Dr. Glenys Holly EOS% 0.0 % Critically low 0.9-7.0 [facility] Comment on above: Performed By: #### M G, CMP, TSH, T7, BNP #### [facility] [address] [place] [address] Dr. Glenys Holly HCT 45.0 % Normal 36.0-48.0 [facility] Comment on above: Performed By: #### M G, CMP, TSH, T7, BNP #### [facility] [address] [place] [address] Dr. Glenys Holly HGB 15.2 g/dl Normal 12.0-16.0 [facility] Comment on above: Performed By: #### M G, CMP, TSH, T7, BNP #### [facility] [address] [address] [address] Glenys Holly LYMPHM # 2.80 103/ul Normal 1.20-3.80 [facility] Comment on above: Performed By: #### M G, CMP, TSH, T7, BNP #### [facility] [address] [address] [address] Glenys Holly LYMPHM% 14.0 % Critically low 20.5-60.0 [facility] Comment on above: Performed By: #### M G, CMP, TSH, T7, BNP #### [facility] [address] [address] [address] Glenys Holly MCH 30.6 pg Normal 26.7-34.0 [facility] Comment on above: Performed By: #### M G, CMP, TSH, T7, BNP #### [facility] [address] [place] [address] Dr. Glenys Holly MCHC 33.8 g/dl Normal 29.9-35.2 [facility] Comment on above: Performed By: #### M G, CMP, TSH, T7, BNP #### [facility] [address] [place] [address] Dr. Glenys Holly MCV 90.7 fL Normal 81.0-99.0 [facility] Comment on above: Performed By: #### M G, CMP, TSH, T7, BNP #### [facility] [address] [place] [address] Dr. Glenys Holly METAMYELOCYTE # Normal [facility] Comment on above: Performed By: #### M G, CMP, TSH, T7, BNP #### [facility] [address] [place] [address] Dr. Glenys Holly METAMYELOCYTE % Normal [facility] Comment on above: Performed By: #### M G, CMP, TSH, T7, BNP #### [facility] [address] [place] [address] Dr. Glenys Holly MONOM# 2.40 103/ul Critically high 0.30-0.80 [facility] Comment on above: Performed By: #### M G, CMP, TSH, T7, BNP #### [facility] [address] [place] [address] Dr. Glenys Holly MONOM% 12.0 % Normal 1.7-12.0 [facility] Comment on above: Performed By: #### M G, CMP, TSH, T7, BNP #### [facility] [address] [place] [address] Dr. Glenys Holly MPV 11.5 fL Normal 9.5-13.5 [facility] Comment on above: Performed By: #### M G, CMP, TSH, T7, BNP #### [facility] [address] [place] [address] Dr. Glenys Holly MYELOCYTE # Normal [facility] Comment on above: Performed By: #### M G, CMP, TSH, T7, BNP #### [facility] [address] [address] [address] Glenys Holly MYELOCYTE % Normal [facility] Comment on above: Performed By: #### M G, CMP, TSH, T7, BNP #### [facility] [address] [address] [address] Glenys Holly NRBC Normal [facility] Comment on above: Performed By: #### M G, CMP, TSH, T7, BNP #### [facility] [address] [address] [address] Glenys Holly PLT 323 103/ul Normal 150-450 [facility] Comment on above: Performed By: #### M G, CMP, TSH, T7, BNP #### [facility] [address] [place] [address] Dr. Glenys Holly RBC 4.96 106/ul Normal 4.20-5.40 [facility] Comment on above: Performed By: #### M G, CMP, TSH, T7, BNP #### [facility] [address] [address] [address] Glenys Holly RDW 14.4 % Normal 11.0-15.0 [facility] Comment on above: Performed By: #### M G, CMP, TSH, T7, BNP #### [facility] [address] [address] [address] Glenys Holly SEG # 14.60 103/ul Critically high 1.40-6.50 [facility] Comment on above: Performed By: #### M G, CMP, TSH, T7, BNP #### [facility] [address] [address] [address] Glenys Holly SEG % 73.0 % Normal 43.0-75.0 [facility] Comment on above: Performed By: #### M G, CMP, TSH, T7, BNP #### [facility] [address] [address] [address] Glenys Holly WBC 20.0 103/ul Critically high 4.0-11.0 [facility] Comment on above: Performed By: #### M G, CMP, TSH, T7, BNP #### [facility] [id number] Glen[address] Holly [address] ABD/PELV W CONon [...] Date: 2022-03-29 11:27 Normal [facility] ER URINE PROFILEon 2 Bilirubin Ql (U) Negative Normal NEGATIVE [facility] Comment on above: Performed By: #### M G, CMP, TSH, T7, BNP #### [facility] [address] [place], [place] [address] Dr. Glenys Holly Clarity (U) CLEAR Normal CLEAR [facility] Comment on above: Performed By: #### M G, CMP, TSH, T7, BNP #### [facility] [address] [address] [address] Glenys Holly Color (U) LT. YELLOW Normal YELLOW [facility] Comment on above: Performed By: #### M G, CMP, TSH, T7, BNP #### [facility] [address] [address] [address] Glenys Holly ERUAHD A micrscopic examina tion will be performed if indicated. Normal [facility] Comment on above: Performed By: #### M G, CMP, TSH, T7, BNP #### [facility] [address] [address] [address] Glenys Holly Glucose Ql (U) Negative Normal NEGATIVE [facility] Comment on above: Performed By: #### M G, CMP, TSH, T7, BNP #### [facility] [address] [address] [address] Glenys Holly Hemoglobin Ql (U) MODERATE Abnormal NEGATIVE [facility] Comment on above: Performed By: #### M G, CMP, TSH, T7, BNP #### [facility] [address] [address] [address] Glenys Holly Ketones Ql (U) 15 mg/dl Abnormal NEGATIVE [facility] Comment on above: Performed By: #### M G, CMP, TSH, T7, BNP #### [facility] [address] [address] [address] Glenys Holly LEUKOCYTES LARGE Abnormal NEGATIVE [facility] Comment on above: Performed By: #### M G, CMP, TSH, T7, BNP #### [facility] [address] [address] [address] Glenys Holly Nitrite Ql (U) Negative Normal NEGATIVE [facility] Comment on above: Performed By: #### M G, CMP, TSH, T7, BNP #### [facility] [address] [address] [address] Glenys Holly pH (U) 6.5 [pH] Normal 5-9 [facility] Comment on above: Performed By: #### M G, CMP, TSH, T7, BNP #### [facility] [address] [place] [address] Dr. Glenys Holly SPEC GRAVITY 1.015 Normal 1.005-<=1.0 25 [facility] Comment on above: Performed By: #### M G, CMP, TSH, T7, BNP #### [facility] [address] [place] [address] Dr. Glenys Holly UA PROTEIN TRACE Normal NEGATIVE/ TRACE [facility] Comment on above: Performed By: #### M G, CMP, TSH, T7, BNP #### [facility] [address] [place] [address] Dr. Glenys Holly UR MICRO IND INDICATED Normal [facility] Comment on above: Performed By: #### M G, CMP, TSH, T7, BNP #### [facility] [address] [place] [address] Dr. Glenys Holly Urobilinogen Qn (U) 0.2 {Phoebe'U}/dL Normal 0.2 - 1. 0 [facility] Comment on above: Performed By: #### M G, CMP, TSH, T7, BNP #### [facility] [address] [place] [address] Dr. Glenys Holly LIPASEon 03-29-2022 Lipase [Catalytic activity/Vol] 62.0 U/L Critically low 73.0-393.0 [facility] Comment on above: Performed By: #### M G, CMP, TSH, T7, BNP #### [facility] [address] [place] [address] Dr. Glenys Holly PROF 14(COMP METB)on 022 Albumin [Mass/Vol] 3.7 g/dL Normal 3.4-5.0 [facility] Comment on above: Performed By: #### M G, CMP, TSH, T7, BNP #### [facility] [address] [place] [address] Dr. Glenys Holly Albumin/Globulin [Mass ratio] 1.2 {ratio} Normal [facility] Comment on above: Performed By: #### M G, CMP, TSH, T7, BNP #### [facility] [address] [place] [address] Dr. Glenys Holly ALP [Catalytic activity/Vol] 106 U/L Normal 46-116 [facility] Comment on above: Performed By: #### M G, CMP, TSH, T7, BNP #### [facility] [address] [place] [address] Dr. Glenys Holly ALT [Catalytic activity/Vol] 17 U/L Normal 14-59 [facility] Comment on above: Performed By: #### M G, CMP, TSH, T7, BNP #### [facility] [address] [place] [address] Dr. Glenys Holly Anion gap [Moles/Vol] 11.8 mmol/L Normal [facility] Comment on above: Performed By: #### M G, CMP, TSH, T7, BNP #### [facility] [address] [place] [address] Dr. Glenys Holly AST [Catalytic activity/Vol] 19 U/L Normal 15-37 [facility] Comment on above: Performed By: #### M G, CMP, TSH, T7, BNP #### [facility] [address] [place] [address] Dr. Glenys Holly Bilirubin [Mass/Vol] 0.8 mg/dL Normal 0.2-1.0 [facility] Comment on above: Performed By: #### M G, CMP, TSH, T7, BNP #### [facility] [address] [place] [address] Dr. Glenys Holly Calcium [Mass/Vol] 9.8 mg/dL Normal 8.5-10.1 [facility] Comment on above: Performed By: #### M G, CMP, TSH, T7, BNP #### [facility] [address] [place] [address] Dr. Glenys Holly Chloride [Moles/Vol] 101 mmol/L Normal 98-107 [facility] Comment on above: Performed By: #### M G, CMP, TSH, T7, BNP #### [facility] [address] [place] [address] Dr. Glenys Holly CO2 [Moles/Vol] 26.2 mmol/L Normal 21.0-32.0 [facility] Comment on above: Performed By: #### M G, CMP, TSH, T7, BNP #### [facility] [address] [address] [address] Glenys Holly Creatinine [Mass/Vol] 0.76 mg/dL Normal 0.55-1.02 [facility] Comment on above: Performed By: #### M G, CMP, TSH, T7, BNP #### [facility] [address] [address] [address] Glenys Holly EGFR-AF SWEDISH >60 Normal >=60 [facility] Comment on above: Performed By: #### M G, CMP, TSH, T7, BNP #### [facility] [address] [place] [address] Dr. Glenys Holly EGFR-NON AF SWEDISH >60 Normal >=60 [facility] Comment on above: Performed By: #### M G, CMP, TSH, T7, BNP #### [facility] [address] [address] [address] Glenys Holly Globulin (S) [Mass/Vol] 3.2 g/dL Normal [facility] Comment on above: Performed By: #### M G, CMP, TSH, T7, BNP #### [facility] [address] [address] [address] Glenys Holly Glucose [Mass/Vol] 103 mg/dL Normal 74-106 [facility] Comment on above: Performed By: #### M G, CMP, TSH, T7, BNP #### [facility] [address] [address] [address] Glenys Holly Potassium [Moles/Vol] 3.0 mmol/L Critically low 3.5-5.1 [facility] Comment on above: Performed By: #### M G, CMP, TSH, T7, BNP #### [facility] [address] [address] [address] Glenys Holly Protein [Mass/Vol] 6.9 g/dL Normal 6.4-8.2 [facility] Comment on above: Performed By: #### M G, CMP, TSH, T7, BNP #### [facility] [address] [address] [address] Glenys Holly Sodium [Moles/Vol] 136 mmol/L Normal 136-145 [facility] Comment on above: Performed By: #### M G, CMP, TSH, T7, BNP #### [facility] [address] [address] [address] Glenys Holly Urea nitrogen [Mass/Vol] 16.0 mg/dL Normal 7.0-18.0 [facility] Comment on above: Performed By: #### M G, CMP, TSH, T7, BNP #### [facility] [address] [place] [address] Dr. Glenys Holly Urea nitrogen/Creatinine [Mass ratio] 21.1 mg/mg Normal [facility] Comment on above: Performed By: #### M G, CMP, TSH, T7, BNP #### [facility] [address] [place] [address] Dr. Glenys Holly TROPONIN, HIGH SENSITIVITYon 03-29-2022 HSTROP 30.7 pg/mL Normal 4.0-51.3 [facility] Comment on above: Result Comment: CUT- OFF POINTS HAVE BEEN ESTABLISHED BASED ON THE FOURTH UNIVERSAL DEFINITIONS OF MYOCARDIAL INFARCTION. THE UPPER REFERENCE LIMIT (URL) OF TROPONIN, DEFINED THE 99TH PERCENTILE OF cTnI DISTRIBUTION IN A REFERENCE POPULATION, HAS BEEN CONFIRMED THE DECISION THRESHOLD FOR AL DIAGNOSIS. Performed By: #### M G, CMP, TSH, T7, BNP #### [facility] [address] [place] [address] Dr. Glenys Holly URINE MICROSCOPIC ONLYon BACTERIA MODERATE Abnormal NONE SEEN [facility] Comment on above: Performed By: #### M G, CMP, TSH, T7, BNP #### [facility] [address] [place] [address] Dr. Glenys Holly Bacteria identified Cx Nom (U) INDICATED Normal [facility] Comment on above: Performed By: #### M G, CMP, TSH, T7, BNP #### [facility] [address] [place] [address] Dr. Glenys Holly CA OX CRYSTALS MODERATE Normal [facility] Comment on above: Performed By: #### M G, CMP, TSH, T7, BNP #### [facility] [address] [address] [address] Glenys Holly CAST NONE SEEN Normal NONE SEEN [facility] Comment on above: Performed By: #### M G, CMP, TSH, T7, BNP #### [facility] [address] [address] [address] Glenys Holly Crystals LM Nom (Urine sed) SEEN Abnormal NONE SEEN [facility] Comment on above: Performed By: #### M G, CMP, TSH, T7, BNP #### [facility] [address] [place] [address] Dr. Glenys Holly Epithelial cells LM Ql (Urine sed) FEW Abnormal NONE SEEN /RARE [facility] Comment on above: Performed By: #### M G, CMP, TSH, T7, BNP #### [facility] [address] [address] [address] Glenys Holly MUCOUS NONE SEEN Normal NONE SEEN [facility] Comment on above: Performed By: #### M G, CMP, TSH, T7, BNP #### [facility] [address] [address] [address] Glenys Holly RBC 5-10 Abnormal 0-2 [facility] Comment on above: Performed By: #### M G, CMP, TSH, T7, BNP #### [facility] [address] [address] [address] Glenys Holly WBC 20-50 Abnormal NONE SEEN [facility] Comment on above: Performed By: #### M G, CMP, TSH, T7, BNP #### [facility] [address] [address] [address] Glenys Holly XR ABD FLAT UP_PA [...] Date: 2022-03-29 09:27 Normal [facility] CT HEAD WO CONon 12-27-2021 CT HEAD [...] Date: 2021-12-27 12:48 Normal [facility] Discharge Summaryon 08-18-19 18 Discharge Summary MR#: [id number] [facility] Pt. Name: Judith Khan Admitted: 08/11/2017 [...] intraperitoneal bleeding. [facility].Upon arrival to the [facility], no other injuries were noted. The patientwas [...] 4-6 hours as needed for pain and Okxcvl216 mg b.i.d. for opioid related constipation.Electronically Signed by:Supa May M.D. 08/29/2017 12:01 P Supa May M.D. I personally saw this patient on the day of the encounter, performed thekey portion(s) of the service and participated in the management andconfirm the resident's documentation. Please note there may be anadditional personal documentation from me. Date Dict: 08/16/2017/10:11 Susan/SUKHJINDER Jonasate Trans: 08/17/2017 06:00 Susan/LaurelN_JN:[id number] Normal [facility] BASIC METABOLIC PANELon 03 Calcium 8.8 mg/dL Normal 8.6-10.3 [facility] Comment on above: Order Comment: No: D o not add to previous draw Performed By: #### 0 0121, 32821 ####[facility] [place] [address], [facility] Chloride 97 mmol/L Low 98-107 [facility] Comment on above: Order Comment: No: D o not add to previous draw Performed By: #### 0 0121, 80569 ####[facility] [place] [address], [facility] CO2 33 mmol/L High 21-31 [facility] Comment on above: Order Comment: No: D o not add to previous draw Performed By: #### 0 0121, 09261 ####[facility] [place] [address], [facility] Creatinine 0.75 mg/dL Normal 0.60-1.20 [facility] Comment on above: Order Comment: No: D o not add to previous draw Performed By: #### 0 0121, 53460 ####[facility] [place] [address], [facility] eGFR (black) mL/min/{1.73_m2} Normal >60 [facility] Comment on above: Order Comment: No: D o not add to previous draw Result Comment: Calc ulation may not be valid for patients over 70 years Performed By: #### 0 0121, 89794 ####[facility] [place] [address], [facility] eGFR (non-black) mL/min/{1.73_m2} Normal >60 [facility] Comment on above: Order Comment: No: D o not add to previous draw Result Comment: Calc ulation may not be valid for patients over 70 years Performed By: #### 0 0121, 27225 ####[facility] [place] [address], [facility] Glucose mass conc 91 mg/dL Normal 70-100 [facility] Comment on above: Order Comment: No: D o not add to previous draw Performed By: #### 0 0121, 87744 ####[facility] [place] [address], [facility] Potassium molar conc 2.8 mmol/L Low 3.5-5.1 [facility] Comment on above: Order Comment: No: D o not add to previous draw Performed By: #### 0 0121, 94619 ####[facility] [place] [address], [facility] Sodium 137 mmol/L Normal 136-145 [facility] Comment on above: Order Comment: No: D o not add to previous draw Performed By: #### 0 0121, 41140 ####[facility] [place] [address], [facility] Urea nitrogen 13 mg/dL Normal 7-25 [facility] Comment on above: Order Comment: No: D o not add to previous draw Performed By: #### 0 0121, 33128 ####[facility] [facility].[address] CBC COMPLETE BLOOD COUNTon 0 08-15-2017 Erythrocyte distribution width Auto Ratio (RBC) 14.6 % Normal 11.5-15.0 [facility] Comment on above: Order Comment: No: D o not add to previous draw Performed By: #### 5 610, 59919 ####[facility] Erythrocytes (RBC) 4.05 10*6/uL Normal 3.80-5.00 [facility] Comment on above: Order Comment: No: D o not add to previous draw Performed By: #### 5 610, 01240 ####[facility] [facility].[address] Erythrocytes (RBC) 0 % Normal 0-0 [facility] Comment on above: Order Comment: No: D o not add to previous draw Performed By: #### 5 610, 07967 ####[facility] [facility] [address] Hematocrit (HCT) 36.8 % Normal 36.0-45.0 [facility] Comment on above: Order Comment: No: D o not add to previous draw Performed By: #### 5 610, 65063 ####[facility] [facility] [address] Hemoglobin mass conc (Bld) 12.3 g/dL Normal 12.0-15.0 [facility] Comment on above: Order Comment: No: D o not add to previous draw Performed By: #### 5 610, 58761 ####[facility] MCH 30.4 pg Normal 27.0-33.0 [facility] Comment on above: Order Comment: No: D o not add to previous draw Performed By: #### 5 6101, 68526 ####[address] MCHC mass conc (RBC) 33.4 g/dL Normal 32.0-35.0 [facility] Comment on above: Order Comment: No: D o not add to previous draw Performed By: #### 5 6101, 63285 ####[address] MCV 90.9 fL Normal 82.0-98.0 [facility] Comment on above: Order Comment: No: D o not add to previous draw Performed By: #### 5 6101, 20829 ####[address] PLAT CNT 196 10*3/uL Normal 150-400 [facility] Comment on above: Order Comment: No: D o not add to previous draw Performed By: #### 5 6101, 50040 ####[address] WBC (Leukocytes) 11.0 10*3/uL High 4.0-10.6 [facility] Comment on above: Order Comment: No: D o not add to previous draw Performed By: #### 5 6101, 54990 ####[address] PORTABLE CHEST 1 VIEWon 03-0 PORTABLE CHEST 1 VIEW [facility] [address] [place] [address] Patient Name: JUDITH KHAN : 1945Sex: FAge: Race: WhiteMRN: [id number]. Location: [id number] Status: IVisit #: [id number] Date: 08/15/2017 7:05:00 AMCompleted Date: 08/15/2017 07:54 AMRequesting Provider: JOSH ESCUDERO Attending Provider: ALEXANDER OLSON Report Copy To: Signs & Symptoms: O2 DesaturationHistory: Patient history not availableComments: R/O EffusionExam: PORTABLE CHEST 1 VIEWAccession #: [id number] POR TABLE CHEST 1 VIEW 08/15/2017 7:54 [...] lower lung pneumonia cannot be excluded Approved by:Jazmni Mar on 08/15/2017 8:20 AM EST. I, Nina Baever, have reviewed the images and report and concur with these findings. Electronically signed by:Nina Beaver. Transcribed by: [id number], User Resident: JAZMIN MARElectronically Signed by: NINA BEAVER @ 08/15/2017 10:25 AMI personally read this/these film(s) with this resident Normal [facility] Center Comment on above: Order Comment: R/O E ffusion BASIC METABOLIC PANELon 03-0 Calcium 8.6 mg/dL Normal 8.6-10.3 [facility] Comment on above: Order Comment: No: D o not add to previous draw Performed By: #### 0 0121, 30072 ####[facility] [place] [address], [facility] Chloride 103 mmol/L Normal 98-107 [facility] Comment on above: Order Comment: No: D o not add to previous draw Performed By: #### 0 0121, 39690 ####[facility] [place] [address], [place] CO2 30 mmol/L Normal 21-31 [facility] Comment on above: Order Comment: No: D o not add to previous draw Performed By: #### 0 0121, 44444 ####[facility] [place] [address], [facility] Creatinine 0.60 mg/dL Normal 0.60-1.20 [facility] Comment on above: Order Comment: No: D o not add to previous draw Performed By: #### 0 0121, 64318 ####[facility] [place] [address], [facility] eGFR (black) mL/min/{1.73_m2} Normal >60 [facility] Comment on above: Order Comment: No: D o not add to previous draw Result Comment: Calc ulation may not be valid for patients over 70 years Performed By: #### 0 0121, 11375 ####[facility] [place] [address], [facility] eGFR (non-black) mL/min/{1.73_m2} Normal >60 [facility] Comment on above: Order Comment: No: D o not add to previous draw Result Comment: Calc ulation may not be valid for patients over 70 years Performed By: #### 0 0121, 24036 ####[facility] [place] [address], [facility] Glucose mass conc 81 mg/dL Normal 70-100 [facility] Comment on above: Order Comment: No: D o not add to previous draw Performed By: #### 0 0121, 82057 ####[facility] Potassium molar conc 3.0 mmol/L Low 3.5-5.1 [facility] Comment on above: Order Comment: No: D o not add to previous draw Performed By: #### 0 0121, 20659 ####[facility] Sodium 138 mmol/L Normal 136-145 [facility] Comment on above: Order Comment: No: D o not add to previous draw Performed By: #### 0 0121, 32806 ####[facility] Urea nitrogen 12 mg/dL Normal 7-25 [facility] Comment on above: Order Comment: No: D o not add to previous draw Performed By: #### 0 0121, 69039 ####[facility] CBC COMPLETE BLOOD COUNTon 0 08-14-2017 Erythrocyte distribution width Auto Ratio (RBC) 14.9 % Normal 11.5-15.0 [facility] Comment on above: Order Comment: No: D o not add to previous draw Performed By: #### 0 0121, 06091 ####[facility] Erythrocytes (RBC) 3.80 10*6/uL Normal 3.80-5.00 [facility] Comment on above: Order Comment: No: D o not add to previous draw Performed By: #### 0 0121, 05809 ####[facility] Erythrocytes (RBC) 0 % Normal 0-0 [facility] Comment on above: Order Comment: No: D o not add to previous draw Performed By: #### 0 0121, 22599 ####[facility] Hematocrit (HCT) 34.3 % Low 36.0-45.0 [facility] Comment on above: Order Comment: No: D o not add to previous draw Performed By: #### 0 0121, 59252 ####[facility] [facility].[address] Hemoglobin mass conc (Bld) 11.7 g/dL Low 12.0-15.0 [facility] Comment on above: Order Comment: No: D o not add to previous draw Performed By: #### 0 0121, 05318 ####[facility] [facility].[address] MCH 30.8 pg Normal 27.0-33.0 [facility] Comment on above: Order Comment: No: D o not add to previous draw Performed By: #### 0 0121, 39244 ####[facility] [facility] MCHC mass conc (RBC) 34.1 g/dL Normal 32.0-35.0 [facility] Comment on above: Order Comment: No: D o not add to previous draw Performed By: #### 0 0121, 89331 ####[facility] [facility].[address] MCV 90.3 fL Normal 82.0-98.0 [facility] Comment on above: Order Comment: No: D o not add to previous draw Performed By: #### 0 0121, 52798 ####[facility] PLAT CNT 134 10*3/uL Low 150-400 [facility] Comment on above: Order Comment: No: D o not add to previous draw Performed By: #### 0 0121, 25528 ####[address] WBC (Leukocytes) 11.5 10*3/uL High 4.0-10.6 [facility] Comment on above: Order Comment: No: D o not add to previous draw Performed By: #### 0 0121, 72166 ####[address] MAGNESIUM BLOODon 08-14-2017 Magnesium 1.9 mg/dL Normal 1.9-2.7 [facility] Comment on above: Order Comment: No: D o not add to previous draw Performed By: #### 0 0121, 10444 ####[place] [address] [address] PHOSPHORUS BLOODon 8 Phosphate 2.5 mg/dL Normal 2.5-5.0 [facility] Comment on above: Order Comment: No: D o not add to previous draw Performed By: #### 0 0121, 08210 ####[address] PORTABLE CHEST 1 VIEWon PORTABLE CHEST 1 VIEW [facility] [place] [id number] Patient Name: JUDITH KHAN : 1945Sex: FAge: Race: WhiteMRN: [id number]. Location: [id number] Status: IVisit #: [id number] Date: 08/14/2017 8:00:00 AMCompleted Date: 08/14/2017 08:34 AMRequesting Provider: JOSH ESCUDERO Attending Provider: ALEXANDER OLSON Report Copy To: Signs & Symptoms: O2 DesaturationHistory: Patient history not availableComments: R/O AtelectasisExam: PORTABLE CHEST 1 VIEWAccession #: [id number] POR TABLE CHEST 1 VIEW 08/14/2017 8:34 [...] findings. Electronically signed by:Kristian Nascimento. Transcribed by: [email or web address], User Resident: JAZMIN MARElectronically Signed by: KRISTIAN NASCIMENTO @ 08/14/2017 09:18 PMI personally read this/these film(s) with this resident Normal [facility] Comment on above: Order Comment: R/O A telectasis BASIC METABOLIC PANELon Calcium 8.4 mg/dL Low 8.6-10.3 [facility] Comment on above: Order Comment: No: D o not add to previous draw Performed By: #### 0 0121, 03356 ####[facility] [place] [address], [facility] Chloride 109 mmol/L High 98-107 [facility] Comment on above: Order Comment: No: D o not add to previous draw Performed By: #### 0 0121, 52126 ####[address] [place] [address], [facility] CO2 30 mmol/L Normal 21-31 [facility] Comment on above: Order Comment: No: D o not add to previous draw Performed By: #### 0 0121, 25227 ####[address] [place] [address], [facility] Creatinine 0.62 mg/dL Normal 0.60-1.20 [facility] Comment on above: Order Comment: No: D o not add to previous draw Performed By: #### 0 0121, 37264 ####[address] eGFR (black) mL/min/{1.73_m2} Normal >60 [facility] Comment on above: Order Comment: No: D o not add to previous draw Result Comment: Calc ulation may not be valid for patients over 70 years Performed By: #### 0 0121, 12901 ####[address] eGFR (non-black) mL/min/{1.73_m2} Normal >60 [facility] Comment on above: Order Comment: No: D o not add to previous draw Result Comment: Calc ulation may not be valid for patients over 70 years Performed By: #### 0 0121, 82455 ####[place] [address], [facility] Glucose mass conc 99 mg/dL Normal 70-100 [facility] Comment on above: Order Comment: No: D o not add to previous draw Performed By: #### 0 0121, 17102 ####[address] Potassium molar conc 3.2 mmol/L Low 3.5-5.1 [facility] Comment on above: Order Comment: No: D o not add to previous draw Performed By: #### 0 0121, 39858 ####[facility] Sodium 143 mmol/L Normal 136-145 [facility] Comment on above: Order Comment: No: D o not add to previous draw Performed By: #### 0 0121, 80091 ####[place] [address] [facility].[address] Urea nitrogen 14 mg/dL Normal 7-25 [facility] Comment on above: Order Comment: No: D o not add to previous draw Performed By: #### 0 0121, 29732 ####[facility] [facility] CBC COMPLETE BLOOD COUNTon 0 - Erythrocyte distribution width Auto Ratio (RBC) 15.9 % High 11.5-15.0 [facility] Comment on above: Order Comment: No: D o not add to previous draw Performed By: #### 0 0121, 03296 ####[place] [address] [facility].[address] Erythrocytes (RBC) 0 % Normal 0-0 [facility] Comment on above: Order Comment: No: D o not add to previous draw Performed By: #### 0 0121, 91374 ####[facility] [facility].[address] Erythrocytes (RBC) 3.76 10*6/uL Low 3.80-5.00 [facility] Comment on above: Order Comment: No: D o not add to previous draw Performed By: #### 0 0121, 10716 ####[facility] Hematocrit (HCT) 34.3 % Low 36.0-45.0 [facility] Comment on above: Order Comment: No: D o not add to previous draw Performed By: #### 0 0121, 69153 ####[facility] Hemoglobin mass conc (Bld) 11.4 g/dL Low 12.0-15.0 [facility] Comment on above: Order Comment: No: D o not add to previous draw Performed By: #### 0 0121, 97329 ####[facility] MCH 30.3 pg Normal 27.0-33.0 [facility] Comment on above: Order Comment: No: D o not add to previous draw Performed By: #### 0 0121, 07310 ####[facility] MCHC mass conc (RBC) 33.2 g/dL Normal 32.0-35.0 [facility] Comment on above: Order Comment: No: D o not add to previous draw Performed By: #### 0 0121, 63932 ####[facility] MCV 91.2 fL Normal 82.0-98.0 [facility] Comment on above: Order Comment: No: D o not add to previous draw Performed By: #### 0 0121, 50934 ####[facility] [facility] PLAT CNT 95 10*3/uL Low 150-400 [facility] Comment on above: Order Comment: No: D o not add to previous draw Performed By: #### 0 0121, 75107 ####[facility] WBC (Leukocytes) 9.1 10*3/uL Normal 4.0-10.6 [facility] Comment on above: Order Comment: No: D o not add to previous draw Performed By: #### 0 0121, 70549 ####[facility] MAGNESIUM BLOODon 08-13-2017 Magnesium 1.8 mg/dL Low 1.9-2.7 [facility] Comment on above: Order Comment: No: D o not add to previous draw Performed By: #### 0 0121, 79396 ####[facility] [place] [address], [facility] PHOSPHORUS BLOODon 8 Phosphate 1.9 mg/dL Low 2.5-5.0 [facility] Comment on above: Order Comment: No: D o not add to previous draw Performed By: #### 0 0121, 10045 ####[facility] BASIC METABOLIC PANELon Calcium 8.4 mg/dL Low 8.6-10.3 [facility] Comment on above: Order Comment: No: D o not add to previous draw Performed By: #### 0 0121, 79949 ####[facility] [place] [address], [facility] Chloride 113 mmol/L High 98-107 [facility] Comment on above: Order Comment: No: D o not add to previous draw Performed By: #### 0 0121, 37483 ####[facility] [place] [address], [facility] CO2 25 mmol/L Normal 21-31 [facility] Comment on above: Order Comment: No: D o not add to previous draw Performed By: #### 0 0121, 60429 ####[facility] [place] [address], [facility] Creatinine 0.75 mg/dL Normal 0.60-1.20 [facility] Comment on above: Order Comment: No: D o not add to previous draw Performed By: #### 0 0121, 54632 ####[facility] [place] [address], [facility] eGFR (black) mL/min/{1.73_m2} Normal >60 [facility] Comment on above: Order Comment: No: D o not add to previous draw Result Comment: Calc ulation may not be valid for patients over 70 years Performed By: #### 0 0121, 59763 ####[facility] [place] [address], [facility] eGFR (non-black) mL/min/{1.73_m2} Normal >60 [facility] Comment on above: Order Comment: No: D o not add to previous draw Result Comment: Calc ulation may not be valid for patients over 70 years Performed By: #### 0 0121, 31749 ####[facility] [place] [address], [facility] Glucose mass conc 116 mg/dL High 70-100 [facility] Comment on above: Order Comment: No: D o not add to previous draw Performed By: #### 0 0121, 76933 ####[facility] [place] [address], [facility] Potassium molar conc 3.6 mmol/L Normal 3.5-5.1 [facility] Comment on above: Order Comment: No: D o not add to previous draw Performed By: #### 0 0121, 12680 ####[facility] [place] [address], [facility] Sodium 144 mmol/L Normal 136-145 [facility] Comment on above: Order Comment: No: D o not add to previous draw Performed By: #### 0 0121, 47438 ####[facility] Urea nitrogen 16 mg/dL Normal 7-25 [facility] Comment on above: Order Comment: No: D o not add to previous draw Performed By: #### 0 0121, 56331 ####[facility] CBC COMPLETE BLOOD COUNTon 0 08-12-2017 Erythrocyte distribution width Auto Ratio (RBC) 16.3 % High 11.5-15.0 [facility] Comment on above: Order Comment: No: D o not add to previous draw Performed By: #### 0 0121, 00577 ####[facility] Erythrocytes (RBC) 4.15 10*6/uL Normal 3.80-5.00 [facility] Comment on above: Order Comment: No: D o not add to previous draw Performed By: #### 0 0121, 29131 ####[facility] [facility] Erythrocytes (RBC) 0 % Normal 0-0 [facility] Comment on above: Order Comment: No: D o not add to previous draw Performed By: #### 0 0121, 11538 ####[facility] [facility] Hematocrit (HCT) 37.6 % Normal 36.0-45.0 [facility] Comment on above: Order Comment: No: D o not add to previous draw Performed By: #### 0 0121, 88035 ####[facility] Hemoglobin mass conc (Bld) 12.5 g/dL Normal 12.0-15.0 [facility] Comment on above: Order Comment: No: D o not add to previous draw Performed By: #### 0 0121, 00695 ####[facility] [place] [address], [facility] MCH 30.1 pg Normal 27.0-33.0 [facility] Comment on above: Order Comment: No: D o not add to previous draw Performed By: #### 0 0121, 92624 ####[facility] MCHC mass conc (RBC) 33.2 g/dL Normal 32.0-35.0 [facility] Comment on above: Order Comment: No: D o not add to previous draw Performed By: #### 0 0121, 98254 ####[facility] MCV 90.6 fL Normal 82.0-98.0 [facility] Comment on above: Order Comment: No: D o not add to previous draw Performed By: #### 0 0121, 05892 ####[facility] PLAT CNT 89 10*3/uL Low 150-400 [facility] Comment on above: Order Comment: No: D o not add to previous draw Performed By: #### 0 0121, 36178 ####[facility] WBC (Leukocytes) 13.5 10*3/uL High 4.0-10.6 [facility] Comment on above: Order Comment: No: D o not add to previous draw Performed By: #### 0 0121, 84179 ####[facility] HEMATOCRITon 08-12-2017 Hematocrit (HCT) 37.6 % Normal 36.0-45.0 [facility] Comment on above: Order Comment: No: D o not add to previous draw Performed By: #### 0 0121, 46685 ####[facility] HEMOGLOBINon 08-12-2017 Hemoglobin mass conc (Bld) 12.6 g/dL Normal 12.0-15.0 [facility] Comment on above: Order Comment: No: D o not add to previous drawLAB DRAW NOW - PER CECY MCELROY Performed By: #### 0 0121, 54058 ####[facility] MAGNESIUM BLOODon 08-12-2017 Magnesium 1.9 mg/dL Normal 1.9-2.7 [facility] Comment on above: Order Comment: No: D o not add to previous draw Performed By: #### 0 0121, 40001 ####[place] [address] [address] PHOSPHORUS BLOODon 8 Phosphate 2.1 mg/dL Low 2.5-5.0 [facility] Comment on above: Order Comment: No: D o not add to previous draw Performed By: #### 0 0121, 48560 ####[facility] [place] [address] PORTABLE CHEST 1 VIEWon PORTABLE CHEST 1 VIEW [facility] Gxaou[address] [place], [place] [id number] Patient Name: JUDITH KHAN : 1945Sex: FAge: Race: WhiteMRN: [id number]. Location: [id number] Status: IVisit #: [id number] Date: 08/12/2017 7:00:00 AMCompleted Date: 08/12/2017 09:16 AMRequesting Provider: SHANON HERNANDEZ Attending Provider: BRAMOS, ATHANASIOS Report Copy To: Signs & Symptoms: O2 DesaturationHistory: Patient history not availableComments: R/O AtelectasisExam: PORTABLE CHEST 1 VIEWAccession #: [id number] POR TABLE CHEST 1 VIEW 08/12/2017 9:16 [...] findings. Electronically signed by:Kristian Nascimento. Transcribed by: [email or web address], User Resident: ANDRZEJ TORRESElectronically Signed by: KRISTIAN NASCIMENTO @ 08/12/2017 12:27 PMI personally read this/these film(s) with this resident Normal [facility] Comment on above: Order Comment: R/O A telectasis ALCOHOLon 08-11-2017 Ethanol NONE DETECTED Normal [facility] Comment on above: Result Comment: Divi de by 1000 to convert mg/dL to percent. Example: 100mg/dL = 0.1%. Performed By: #### 1 0054, 61892 ####[facility] [place] [address], [facility] APTTon 08-11-2017 aPTT 42.8 s High 25.0-35.0 [facility] Comment on above: Order Comment: No: D [...] THIS PURPOSE. Performed By: #### 1 53, ####[facility] aPTT 27.2 s Normal 25.0-35.0 [facility] Comment on above: Result Comment: ALL RESULTS [...] THIS PURPOSE. Performed By: #### 5 6101, 45890 ####[facility] ARTERIAL BLOOD GAS WITH ICAo n 08-11-2017 BASE EXCESS -7 mmol/L Low -2-2 [facility] Comment on above: Performed By: #### 1 ####[facility] Bicarbonate (HCO3) 18 mmol/L Low 23-27 [facility] Comment on above: Performed By: #### 1 ####[facility] [place] [address], [facility] CO2 34 mmHg Low 35-45 [facility] Comment on above: Performed By: #### 1 53, ####[facility] [place] [address], [facility] [employer] MV Normal [facility] Comment on above: Performed By: #### 1 ####[facility] [place] [address], [place] FIO2 40 % Normal 21-100 [facility] Comment on above: Performed By: #### 1 ####[facility] [place] [address], [place] IONIZED CALCIUM 1.13 mmol/L Normal 1.13-1.32 [facility] Comment on above: Performed By: #### 1 ####[facility] [place] [address], [place] MIN VOLUME 7.2 Normal [facility] Comment on above: Performed By: #### 1 ####[facility] [place] [address], [place] MODALITY AC Normal [facility] Comment on above: Performed By: #### 1 ####[facility] [place] [address], [place] O2 saturation 95.5 % Normal 94.0-97.0 [facility] Comment on above: Performed By: #### 1 ####[facility] [place] [address], [place] Oxygen in arterial blood 161 mm[Hg] Critically high 75-100 [facility] Comment on above: Performed By: #### 1 ####[facility] [place] [address], [place] PEEP 5.0 CMH20 Normal [facility] Comment on above: Performed By: #### 1 ####[facility] [place] [address], [place] PF RATIO 403 mmHg High 50-400 [facility] Comment on above: Performed By: #### 1 ####[facility] [facility] [place] [address], [facility] pH of blood 7.33 [pH] Low 7.35-7.45 [facility] Comment on above: Performed By: #### 1 53, ####[facility] [facility] Respiratory rate 16 /min Normal [facility] Comment on above: Performed By: #### 53, ####[facility] [facility].[address] TIDAL VOLUME (VT) CC 450 Normal [facility] Comment on above: Performed By: #### 1 53, ####[facility] [facility].[address] BASE EXCESS -9 mmol/L Low -2-2 [facility] Comment on above: Order Comment: RESUL TS CHECKED AND CALLED. ACCURATELY READ BACK BY DAT Performed By: #### ####[facility] [facility].[address] Bicarbonate (HCO3) 18 mmol/L Low 23-27 [facility] Comment on above: Order Comment: RESUL TS CHECKED AND CALLED. ACCURATELY READ BACK BY DAT Performed By: #### 1 ####[facility] [facility].[address] CO2 44 mmHg Normal 35-45 [facility] Comment on above: Order Comment: RESUL TS CHECKED AND CALLED. ACCURATELY READ BACK BY DAT Performed By: #### ####[facility] [place] [address], [facility] IONIZED CALCIUM 1.05 mmol/L Low 1.13-1.32 [facility] Comment on above: Order Comment: RESUL TS CHECKED AND CALLED. ACCURATELY READ BACK BY DAT Performed By: #### 1 53, ####[facility] [place] [address], [facility] O2 saturation 96.9 % Normal 94.0-97.0 [facility] Comment on above: Order Comment: RESUL TS CHECKED AND CALLED. ACCURATELY READ BACK BY DAT Performed By: #### 1 53, ####[facility] [place] [address], [facility] [facility] Oxygen in arterial blood 532 mm[Hg] Critically high 75-100 [facility] Comment on above: Order Comment: RESUL TS CHECKED AND CALLED. ACCURATELY READ BACK BY DAT Performed By: #### 1 53, ####[facility] [place] [address], [facility] pH of blood 7.22 [pH] Critically low 7.35-7.45 [facility] Comment on above: Order Comment: RESUL TS CHECKED AND CALLED. ACCURATELY READ BACK BY DAT Performed By: #### 1 53, ####[facility] BASIC METABOLIC PANELon 03-0 Calcium 8.1 mg/dL Low 8.6-10.3 [facility] Comment on above: Order Comment: No: D o not add to previous draw Performed By: #### 1 53, ####[facility] [place] [address], [facility] Chloride 116 mmol/L High 98-107 [facility] Comment on above: Order Comment: No: D o not add to previous draw Performed By: #### 1 53, ####[facility] Creatinine 0.85 mg/dL Normal 0.60-1.20 [facility] Comment on above: Order Comment: No: D o not add to previous draw Performed By: #### 1 ####[facility] [place] [address], [place] Glucose mass conc 109 mg/dL High 70-100 [facility] Comment on above: Order Comment: No: D o not add to previous draw Performed By: #### 1 53, ####[facility] [place] [address], [place] Potassium molar conc 4.9 mmol/L Normal 3.5-5.1 [facility] Comment on above: Order Comment: No: D o not add to previous draw Performed By: #### 1 53, ####[facility] [place] [address], [facility] Sodium 142 mmol/L Normal 136-145 [facility] Comment on above: Order Comment: No: D o not add to previous draw Performed By: #### ####[facility] [place] [address], [facility] Urea nitrogen 16 mg/dL Normal 7-25 [facility] Comment on above: Order Comment: No: D o not add to previous draw Performed By: #### 1 ####[facility] [place] [address], [place] Calcium 7.9 mg/dL Low 8.6-10.3 [facility] Comment on above: Order Comment: No: D o not add to previous draw Performed By: #### 1 53, ####[facility] [place] [address], [place] Chloride 113 mmol/L High 98-107 [facility] Comment on above: Order Comment: No: D o not add to previous draw Performed By: #### 1 53, ####[facility] [place] [address], [place] CO2 22 mmol/L Normal 21-31 [facility] Comment on above: Order Comment: No: D o not add to previous draw Performed By: #### 1 53, ####[facility] Creatinine 0.68 mg/dL Normal 0.60-1.20 [facility] Comment on above: Order Comment: No: D o not add to previous draw Performed By: #### 1 53, ####[facility] eGFR (black) mL/min/{1.73_m2} Normal >60 [facility] Comment on above: Order Comment: No: D o not add to previous draw Result Comment: Calc ulation may not be valid for patients over 70 years Performed By: #### 1 53, ####[facility] eGFR (non-black) mL/min/{1.73_m2} Normal >60 [facility] Comment on above: Order Comment: No: D o not add to previous draw Result Comment: Calc ulation may not be valid for patients over 70 years Performed By: #### 1 53, ####[facility] [place] [address], [facility] Glucose mass conc 141 mg/dL High 70-100 [facility] Comment on above: Order Comment: No: D o not add to previous draw Performed By: #### 1 53, ####[facility] [place] [address], [facility] Potassium molar conc 3.3 mmol/L Low 3.5-5.1 [facility] Comment on above: Order Comment: No: D o not add to previous draw Performed By: #### 1 53, ####[facility] Sodium 139 mmol/L Normal 136-145 [facility] Comment on above: Order Comment: No: D o not add to previous draw Performed By: #### 1 53, ####[place] [address] Urea nitrogen 12 mg/dL Normal 7-25 [facility] Comment on above: Order Comment: No: D o not add to previous draw Performed By: #### 1 53, ####[facility] CBC W/DIFFon 08-11-2017 ABS BASOPHILS 0.0 10*3/uL Normal 0.0-0.2 [facility] Comment on above: Performed By: #### 1 53, ####[place] [address] ABS IMM GRANS 0.0 10*3/uL Normal 0.0-0.2 [facility] Comment on above: Performed By: #### 1 53, ####[place] [address] Basophils Auto #/vol (Bld) 0.1 % Normal 0.0-1.0 [facility] Comment on above: Performed By: #### 1 53, ####[facility] Eosinophils 0.0 10*3/uL Normal 0.0-0.5 [facility] Comment on above: Performed By: #### 1 53, ####[place] [address] Eosinophils/100 leukocytes 0.1 % Normal 0.0-6.0 [facility] Comment on above: Performed By: #### 1 53, ####[facility] Erythrocyte distribution width Auto Ratio (RBC) 15.1 % High 11.5-15.0 [facility] Comment on above: Performed By: #### 1 ####[facility] [facility] [address] Erythrocytes (RBC) 0 % Normal 0-0 [facility] Comment on above: Performed By: #### 1 ####[facility] [facility].[address] Erythrocytes (RBC) 4.46 10*6/uL Normal 3.80-5.00 [facility] Comment on above: Performed By: #### 1 ####[place] [address] [facility].[address] Hematocrit (HCT) 40.3 % Normal 36.0-45.0 [facility] Comment on above: Performed By: #### 1 ####[place] [address] [facility].[address] Hemoglobin mass conc (Bld) 13.5 g/dL Normal 12.0-15.0 [facility] Comment on above: Performed By: #### 1 ####[facility] [facility] IMMATURE GRANS 0.2 % Normal 0.0-1.0 [facility] Comment on above: Performed By: #### 1 53, ####[place] [address] [facility].[address] Lymphocytes 0.9 10*3/uL Low 1.2-4.0 [facility] Comment on above: Performed By: #### 1 53, ####[facility] [place], [place] [address], [place] [address], [facility] Lymphocytes/100 leukocytes 5.8 % Low 20.0-45.0 [facility] Comment on above: Performed By: #### 1 ####[facility] MCH 30.3 pg Normal 27.0-33.0 [facility] Comment on above: Performed By: #### 1 ####[facility] MCHC mass conc (RBC) 33.5 g/dL Normal 32.0-35.0 [facility] Comment on above: Performed By: #### 1 ####[facility] MCV 90.4 fL Normal 82.0-98.0 [facility] Comment on above: Performed By: #### 1 ####[facility] [place] [address], [facility] Monocytes 0.7 10*3/uL Normal 0.1-1.0 [facility] Comment on above: Performed By: #### 1 ####[facility] MONOS 4.6 % Low 5.0-12.0 [facility] Comment on above: Performed By: #### 1 ####[facility] [place] [address], [facility] Neutrophils 13.6 10*3/uL High 1.6-7.6 [facility] Comment on above: Performed By: #### 1 ####[facility] [place] [address], [facility] Neutrophils/100 leukocytes 89.2 % High 40.0-72.0 [facility] Comment on above: Performed By: #### 1 53, ####[facility] PLAT CNT 94 10*3/uL Low 150-400 [facility] Comment on above: Result Comment: P = 126 Performed By: #### 1 53, ####[facility] WBC (Leukocytes) 15.2 10*3/uL High 4.0-10.6 [facility] Comment on above: Performed By: #### 1 53, ####[facility] ABS BASOPHILS 0.0 10*3/uL Normal 0.0-0.2 [facility] Comment on above: Performed By: #### 102 ####[facility] ABS IMM GRANS 0.1 10*3/uL Normal 0.0-0.2 [facility] Comment on above: Performed By: #### 102 ####[facility] Basophils Auto #/vol (Bld) 0.3 % Normal 0.0-1.0 [facility] Comment on above: Performed By: #### 102 ####[facility] [place] [address], [facility] Eosinophils 0.0 10*3/uL Normal 0.0-0.5 [facility] Comment on above: Performed By: #### 102 ####[facility] [place] [address], [facility] Eosinophils/100 leukocytes 0.2 % Normal 0.0-6.0 [facility] Comment on above: Performed By: #### 5 0103 ####[facility] Erythrocyte distribution width Auto Ratio (RBC) 14.3 % Normal 11.5-15.0 [facility] Comment on above: Performed By: #### 5 0103 ####[facility] [place] [address] Erythrocytes (RBC) 3.50 10*6/uL Low 3.80-5.00 [facility] Comment on above: Performed By: #### 5 0103 ####[address] Erythrocytes (RBC) 0 % Normal 0-0 [facility] Comment on above: Performed By: #### 5 3 ####[address] Hematocrit (HCT) 32.5 % Low 36.0-45.0 [facility] Comment on above: Performed By: #### 5 0103 ####[address] Hemoglobin mass conc (Bld) 10.9 g/dL Low 12.0-15.0 [facility] Comment on above: Performed By: #### 5 3 ####[address] IMMATURE GRANS 0.4 % Normal 0.0-1.0 [facility] Comment on above: Performed By: #### 5 0103 ####[address] Lymphocytes 2.3 10*3/uL Normal 1.2-4.0 [facility] Comment on above: Performed By: #### 5 3 ####[facility] [facility] [place] [address], [facility] Lymphocytes/100 leukocytes 17.6 % Low 20.0-45.0 [facility] Comment on above: Performed By: #### 5 0103 ####[facility] [facility] [address], [facility] MCH 31.1 pg Normal 27.0-33.0 [facility] Comment on above: Performed By: #### 5 0103 ####[facility] [facility] [address], [facility] MCHC mass conc (RBC) 33.5 g/dL Normal 32.0-35.0 [facility] Comment on above: Performed By: #### 5 0103 ####[facility] [facility] [place] [address], [facility] MCV 92.9 fL Normal 82.0-98.0 [facility] Comment on above: Performed By: #### 5 0103 ####[facility] [facility] [place] [address], [facility] Monocytes 0.8 10*3/uL Normal 0.1-1.0 [facility] Comment on above: Performed By: #### 5 0103 ####[facility] [facility] [place] [address], [facility] MONOS 6.1 % Normal 5.0-12.0 [facility] Comment on above: Performed By: #### 5 0103 ####[facility] [facility] [place] [address], [facility] Neutrophils 9.7 10*3/uL High 1.6-7.6 [facility] Comment on above: Performed By: #### 5 0103 ####[facility] [facility] [place] [address], [facility] Neutrophils/100 leukocytes 75.4 % High 40.0-72.0 [facility] Comment on above: Performed By: #### 5 0103 ####[facility] [facility].[address] PLAT CNT 126 10*3/uL Low 150-400 [facility] Comment on above: Performed By: #### 5 0103 ####[facility] [facility].[address] WBC (Leukocytes) 12.9 10*3/uL High 4.0-10.6 [facility] Comment on above: Performed By: #### 5 0103 ####[facility] [facility].[address] COMP METABOLIC PANELon 08-11 Alanine aminotransferase (ALT) 8 U/L Normal 7-52 [facility] Comment on above: Performed By: #### 0 0121, 09309 ####[facility] Albumin 2.6 g/dL Low 3.5-5.7 [facility] Comment on above: Performed By: #### 0 0121, 16728 ####[facility] ALKALINE PHOSPH 34 IU/L Normal 34-104 [facility] Comment on above: Performed By: #### 0 0121, [id number] ####[facility] [facility].[address] Aspartate aminotransferase (AST) 11 U/L Low 13-39 [facility] Comment on above: Performed By: #### 0 0121, 08852 ####[facility] [facility].[address] Bilirubin (total) 0.7 mg/dL Normal 0.3-1.0 [facility] Comment on above: Performed By: #### 0 0121, 73467 ####[facility] [place] [address], [facility] Calcium 7.4 mg/dL Low 8.6-10.3 [facility] Comment on above: Performed By: #### 0 0121, 38047 ####[facility] [place] [address], [facility] Chloride 112 mmol/L High 98-107 [facility] Comment on above: Performed By: #### 0 0121, 59544 ####[facility] [place] [address], [facility] CO2 22 mmol/L Normal 21-31 [facility] Comment on above: Performed By: #### 0 0121, 64152 ####[place] [address] [facility] [place] [address], [facility] Creatinine 0.83 mg/dL Normal 0.60-1.20 [facility] Comment on above: Performed By: #### 0 0121, 25965 ####[facility] [facility] [address], [facility] eGFR (black) mL/min/{1.73_m2} Normal >60 [facility] Comment on above: Result Comment: Calc ulation may not be valid for patients over 70 years Performed By: #### 0 0121, 92196 ####[facility] [place] [address], [facility] eGFR (non-black) mL/min/{1.73_m2} Normal >60 [facility] Comment on above: Result Comment: Calc ulation may not be valid for patients over 70 years Performed By: #### 0 0121, 86971 ####[facility] [place] [address], [facility] Glucose mass conc 138 mg/dL High 70-100 [facility] Comment on above: Performed By: #### 0 0121, 49781 ####[facility] [facility] [place] [address], [facility] Potassium molar conc 4.0 mmol/L Normal 3.5-5.1 [facility] Comment on above: Performed By: #### 0 0121, 19207 ####[facility] [place] [address], [facility] Protein 4.1 g/dL Low 6.0-8.3 [facility] Comment on above: Performed By: #### 0 0121, 92073 ####[facility] [facility] [place] [address], [facility] Sodium 138 mmol/L Normal 136-145 [facility] Comment on above: Performed By: #### 0 0121, 97996 ####[place] [address] [facility] [place] [address], [facility] Urea nitrogen 16 mg/dL Normal 7-25 [facility] Comment on above: Performed By: #### 0 0121, 34591 ####[place] [address] [facility].[address] Consultationon 08-11-2017 Consultation MR#: [id number] Pt. Name: Judith Khan Date of Service: 08/10/2017 Room #: SIC [id number] Birthdate: 1945 Referring Physician: CONSULTATIONREASON FOR CONSULTATION: Critical care management status post splenectomy,ventilatory management.HISTORY OF PRESENT ILLNESS: Ms. Judith Khan is a 72-year-old female witha history of hypertension, hyperlipidemia, diabetes, and COPD, whopresented as a transfer from [place], [place] with a traumatic brain injury.The patient [...] days. She presented to the hospital in [place], [place], and aCT abdomen and pelvis was obtained that demonstrated a grade 5 spleniclaceration. The patient was initially hemodynamically stable per reportsfrom the outside facility, however she became markedly hypotensive,unresponsive to multiple fluid boluses, and was transferred to [facility] as a level 1 trauma. [facility] [place] [facility] [place], she had received 3 L of crystalloid and 4 units of blood atthat time and only transiently responded to this fluid resuscitation. Shewas hypotensive in the [facility] [place] and an emergent right femoral Cordis wasplaced [...] chronic obstructivepulmonary disease, not on home O2; dwr-lwxgbrw-xfolidffr diabetes mellitus,type 2; anxiety.PAST SURGICAL HISTORY: Hysterectomy, [...] outside facilityreviewed with attending surgeon in [facility] [place] with evidence of rupturedspleen with blood products [...] past. GCS is 15reported in the [facility] [place], currently GCS is 3T, intubated and sedated.She [...] the setting ofcritical care status.Endocrine: History of yxl-vbtbsxk-szgjxcwte diabetes mellitus, type 2, onhome metformin. We [...] was placed in emergent setting [place] [facility] [place], this will be removed/replaced within 24 hours [...] Dict: 08/11/2017/04:38 A/Pippa Gutierrez Trans: 08/11/2017 02:22 [id number] Normal [facility] FRESH FROZEN PLASMA 2 UNITSo n 08-11-2017 PRODUCT CODE 1 E2701 Normal [facility] Comment on above: Order Comment: INR: 1.22 ,PTT: 27.2 at the time of order ;Indication: Activebleeding/invasive procedure with prolonged PT/PTT or INR > 1.6 Performed By: #### 1 53, ####[facility] PRODUCT CODE 2 E2701 Normal [facility] Comment on above: Order Comment: INR: 1.22 ,PTT: 27.2 at the time of order ;Indication: Activebleeding/invasive procedure with prolonged PT/PTT or INR > 1.6 Performed By: #### 1 53, ####[facility] PRODUCT STATUS 1 PT Normal [facility] Comment on above: Order Comment: INR: 1.22 ,PTT: 27.2 at the time of order ;Indication: Activebleeding/invasive procedure with prolonged PT/PTT or INR > 1.6 Result Comment: Resu lt changed by IF on 08/11/2017 00:27. The previous value was XX.Result changed by IF on 08/12/2017 02:00. The previous value was IS. Performed By: #### 1 53, ####[facility] PRODUCT STATUS 2 PT Normal [facility] Comment on above: Order Comment: INR: 1.22 ,PTT: 27.2 at the time of order ;Indication: Activebleeding/invasive procedure with prolonged PT/PTT or INR > 1.6 Result Comment: Resu lt changed by IF on 08/11/2017 03:17. The previous value was XM.Result changed by IF on 08/13/2017 02:00. The previous value was IS. Performed By: #### 1 53, ####[facility] UNIT ABO 1 O Normal [facility] Comment on above: Order Comment: INR: 1.22 ,PTT: 27.2 at the time of order ;Indication: Activebleeding/invasive procedure with prolonged PT/PTT or INR > 1.6 Performed By: #### 1 53, ####[facility] UNIT ABO 2 O Normal [facility] Comment on above: Order Comment: INR: 1.22 ,PTT: 27.2 at the time of order ;Indication: Activebleeding/invasive procedure with prolonged PT/PTT or INR > 1.6 Performed By: #### 1 53, ####[facility] UNIT ID 1 [id number] Normal [facility] Comment on above: Order Comment: INR: 1.22 ,PTT: 27.2 at the time of order ;Indication: Activebleeding/invasive procedure with prolonged PT/PTT or INR > 1.6 Performed By: #### 1 53, ####[facility] UNIT ID 2 [id number] Normal [facility] Comment on above: Order Comment: INR: 1.22 ,PTT: 27.2 at the time of order ;Indication: Activebleeding/invasive procedure with prolonged PT/PTT or INR > 1.6 Performed By: #### 1 53, ####[facility] UNIT RH 1 Positive Normal [facility] Comment on above: Order Comment: INR: 1.22 ,PTT: 27.2 at the time of order ;Indication: Activebleeding/invasive procedure with prolonged PT/PTT or INR > 1.6 Performed By: #### 1 53, ####[facility] UNIT RH 2 Negative Normal [facility] Comment on above: Order Comment: INR: 1.22 ,PTT: 27.2 at the time of order ;Indication: Activebleeding/invasive procedure with prolonged PT/PTT or INR > 1.6 Performed By: #### 1 53, ####[facility] [place] [address], [facility] HEMATOCRITon 08-11-2017 Hematocrit (HCT) 37.7 % Normal 36.0-45.0 [facility] Comment on above: Order Comment: No: D o not add to previous draw Performed By: #### 1 53, ####[facility] [place] [address], [facility] Hematocrit (HCT) 34.8 % Low 36.0-45.0 [facility] Comment on above: Order Comment: No: D o not add to previous draw Performed By: #### 1 53, ####[facility] [place] [address], [facility] HEMOGLOBINon 08-11-2017 Hemoglobin mass conc (Bld) 12.7 g/dL Normal 12.0-15.0 [facility] Comment on above: Order Comment: No: D o not add to previous drawLAB DRAW NOW - PER CECY MCELROY Performed By: #### 1 53, ####[facility] Hemoglobin mass conc (Bld) 11.8 g/dL Low 12.0-15.0 [facility] Comment on above: Order Comment: No: D o not add to previous draw Performed By: #### 1 53, ####[facility] History and Physicalon 08-11 History and Physical MR#: [id number] [place] Pt. Name: Judith Khan Admitted: 08/11/2017 Date of : 1945 Attending Physician: Alexander Olson M.D. Room #: SIC [id number] Discharge Date: HISTORY AND PHYSICALCHIEF COMPLAINT: Trauma [...] any other blood products. [facility] [...] they were fluctuating while in the [facility] [place],stabilized with fluid.GENERAL: Alert and oriented, no acute [...] personal documentation from me. Date Dict: 08/11/2017/12:27 A/Pippa Delgado Trans: 08/11/2017 08:41 A/[id number] Normal [facility] LACTATE BLOODon 08-11-2017 Lactate 1.1 mmol/L Normal .5-2.2 [facility] Comment on above: Order Comment: No: D o not add to previous draw Performed By: #### 1 53, ####[facility] Lactate 1.3 mmol/L Normal .5-2.2 [facility] Center Comment on above: Performed By: #### 1 53, ####[facility] [place] [address], [facility] LIPASE BLOODon 08-11-2017 Lipase 13 Units/L Normal 11-82 [facility] Comment on above: Performed By: #### 0 0121, [id number] ####[facility] [place] [address], [facility] LIVER BATTERYon 08-11-2017 Alanine aminotransferase (ALT) 18 U/L Normal 7-52 [facility] Comment on above: Order Comment: No: D o not add to previous draw Performed By: #### 1 53, ####[facility] [place] [address], [facility] Albumin 2.8 g/dL Low 3.5-5.7 [facility] Comment on above: Order Comment: No: D o not add to previous draw Performed By: #### 1 53, ####[facility] [place] [address], [facility] ALKALINE PHOSPH 36 IU/L Normal 34-104 [facility] Comment on above: Order Comment: No: D o not add to previous draw Performed By: #### 1 53, ####[facility] [place] [address], [facility] Aspartate aminotransferase (AST) 30 U/L Normal 13-39 [facility] Comment on above: Order Comment: No: D o not add to previous draw Performed By: #### 1 53, ####[facility] [place] [address], [place] Bilirubin (direct) 0.2 mg/dL Normal 0.0-0.2 [facility] Comment on above: Order Comment: No: D o not add to previous draw Performed By: #### 1 53, ####[facility] [place] [address], [facility] Bilirubin (total) 0.9 mg/dL Normal 0.3-1.0 [facility] Comment on above: Order Comment: No: D o not add to previous draw Performed By: #### 1 53, ####[facility] Protein 4.0 g/dL Low 6.0-8.3 [facility] Comment on above: Order Comment: No: D o not add to previous draw Performed By: #### 1 53, ####[facility] MAGNESIUM BLOODon 08-11-2017 Magnesium 1.4 mg/dL Low 1.9-2.7 [facility] Comment on above: Order Comment: No: D o not add to previous draw Performed By: #### 1 53, ####[facility] [facility].[address] Operative Reporton 8 Operative Report MR#: [id number] [facility] Judith Khan Room #: SIC [id number] Discharge Date: Birthdate: 1945 OPERATIVE REPORTDATE OF [...] 08/11/2017/06:29 A/Aldo Villasenor, MDDate Trans: 08/11/2017 03:54 P/mmoDN_[id number] Normal [facility] PHOSPHORUS BLOODon 8 Phosphate 3.1 mg/dL Normal 2.5-5.0 [facility] Comment on above: Order Comment: No: D o not add to previous draw Performed By: #### 1 53, ####[facility] PLATELET APHERESIS 1 UNITon 08-11-2017 PRODUCT CODE 1 E7006 Normal [facility] Comment on above: Order Comment: Plt c ount at the time of order: 126 ;Indication: Platelet-inhibitingdrug therapy with invasive procedure/bleeding Performed By: #### 1 53, ####[facility] [facility].[address] PRODUCT STATUS 1 PT Normal [facility] Comment on above: Order Comment: Plt c ount at the time of order: 126 ;Indication: Platelet-inhibitingdrug therapy with invasive procedure/bleeding Result Comment: Resu lt changed by IF on 08/11/2017 00:20. The previous value was XM.Result changed by IF on 08/12/2017 02:00. The previous value was IS. Performed By: #### 1 53, ####[facility] [facility].[address] UNIT ABO 1 O Normal [facility] Comment on above: Order Comment: Plt c ount at the time of order: 126 ;Indication: Platelet-inhibitingdrug therapy with invasive procedure/bleeding Performed By: #### 1 53, ####[address] UNIT ID 1 [id number] Normal [facility] Comment on above: Order Comment: Plt c ount at the time of order: 126 ;Indication: Platelet-inhibitingdrug therapy with invasive procedure/bleeding Performed By: #### 1 53, ####[address] UNIT RH 1 Positive Normal [facility] Comment on above: Order Comment: Plt c ount at the time of order: 126 ;Indication: Platelet-inhibitingdrug therapy with invasive procedure/bleeding Performed By: #### 1 53, ####[facility] [facility] [place] [address], [facility] POC GLUCOSE LABon 08-11-2017 Glucose mass conc 100 mg/dL Normal 70-100 [facility] Comment on above: Performed By: #### 1 53, ####[facility] [facility] [place] [address], [facility] PORTABLE ABDOMENon 8 PORTABLE ABDOMEN [facility] [address] [place] [address] Patient Name: JUDITH KHAN : 1945Sex: FAge: Race: WhiteMRN: [id number]. Location: EMERPatient Status: IVisit #: [id number] Date: 08/11/2017 12:35:00 AMCompleted Date: 08/11/2017 01:07 AMRequesting Provider: ALEXANDER OLSON Attending Provider: ALEXANDER OLSON Report Copy To: Signs & Symptoms: Intra-op portable abdomenHistory: R/O foreign bodyComments: R/O foreign bodyExam: PORTABLE ABDOMENAccession #: [id number] POR TABLE ABDOMEN 08/11/2017 1:07 AM EST [...] findings. Electronically signed by:Kristian Nascimento. Transcribed by: [email or web address], User Resident: NICOLETTE TOTHANElectronically Signed by: KRISTIAN NASCIMENTO @ 08/11/2017 12:16 PMI personally read this/these film(s) with this resident Normal [facility] Comment on above: Order Comment: R/O f oreign body PORTABLE CHEST 1 VIEWon PORTABLE CHEST 1 VIEW [facility] [address] [place] [address] Patient Name: JUDITH KHAN : 1945Sex: FAge: Race: WhiteMRN: [id number]. Location: [id number] Status: IVisit #: [id number] Date: 08/11/2017 1:45:00 AMCompleted Date: 08/11/2017 02:13 AMRequesting Provider: CARMENZA WINTER Attending Provider: ALEXANDER OLSON Report Copy To: Signs & Symptoms: Post OPHistory: Patient history not availableComments: Check E.T. Position, also to chest OGT placementExam: PORTABLE CHEST 1 VIEWAccession #: [id number] POR TABLE CHEST 1 VIEW 08/11/2017 2:13 [...] findings. Electronically signed by:Kristian Nascimento. Transcribed by: [email or web address], User Resident: NICOLETTE TOTHANElectronically Signed by: KRISTIAN NASCIMENTO @ 08/11/2017 12:17 PMI personally read this/these film(s) with this resident Normal [facility] Comment on above: Order Comment: Check E.T. Position, also to chest OGT placement PROTHROMBIN TIMEon 8 INR Coag RelTime (PPP) 1.44 {INR} High 0.91-1.16 [facility] Comment on above: Order Comment: No: D [...] OF ACTION, CLINICALEFFECTIVENESS, AND OPTIMAL THERAPEUTIC RANGE. [id number];108:231S-246S. Performed By: #### 1 53, ####[facility] Prothrombin time (PT) Coag time (PPP) 17.7 s High 12.3-14.8 [facility] Comment on above: Order Comment: No: D o not add to previous draw Result Comment: ALL RESULTS MUST BE INTERPRETED WITH RESPECT TO BLOOD DRAWING ARTIFACTOR DILUTION ERROR OF ANTICOAGULANT AT THE TIME OF SAMPLING. Performed By: #### 1 53, ####[facility] INR Coag RelTime (PPP) 1.22 {INR} High 0.91-1.16 [facility] Comment on above: Result Comment: ACCC P RECOMMENDED INR FOR WARFARIN THERAPY CONDITION INRPROPHYLAXIS OF VENOUS THROMBOSIS 2-3(HIGH-RISK SURGERY)TREATMENT OF VENOUS THROMBOSIS 2-3TREATMENT OF PULMONARY EMBOLISM 2-3PREVENTION OF SYSTEMIC EMBOLISM: 2-3 ACUTE MYOCARDIAL INFARCTION TISSUE HEART VALVES VALVULAR HEART DISEASE ATRIAL FIBRILLATION RECURRENT SYSTEMIC EMBOLISMMECHANICAL HEART VALVE 2.5-3.5 FROM: ORAL ANTICOAGULANTS. MECHANISM OF ACTION, CLINICALEFFECTIVENESS, AND OPTIMAL THERAPEUTIC RANGE. [id number];108:231S-246S. Performed By: #### 5 6101, [id number] ####[facility] [place] [address], [place] Prothrombin time (PT) Coag time (PPP) 15.5 s High 12.3-14.8 [facility] Comment on above: Result Comment: ALL RESULTS MUST BE INTERPRETED WITH RESPECT TO BLOOD DRAWING ARTIFACTOR DILUTION ERROR OF ANTICOAGULANT AT THE TIME OF SAMPLING. Performed By: #### 5 6101, [id number] ####[facility] [place] [address], [place] RBC'S 4 UNITSon 08-11-2017 CROSSMATCH INTERP 1 COMP Normal [facility] Comment on above: Performed By: #### 8 6004 ####[facility] [place] [address], [place] CROSSMATCH INTERP 2 COMP Normal [facility] Comment on above: Performed By: #### 8 6004 ####[facility] [place] [address], [place] CROSSMATCH INTERP 3 COMP Normal [facility] Comment on above: Performed By: #### 8 6004 ####[facility] [place] [address], [place] CROSSMATCH INTERP 4 COMP Normal [facility] Comment on above: Performed By: #### 8 6004 ####[facility] [place] [address], [place] PRODUCT CODE 1 E0686 Normal [facility] Comment on above: Performed By: #### 8 6004 ####[facility] [place] [address], [place] PRODUCT CODE 2 E0336 Normal [facility] Comment on above: Performed By: #### 8 6004 ####[facility] [place] [address], [place] PRODUCT CODE 3 E0336 Normal [facility] Comment on above: Performed By: #### 8 6004 ####[facility] [facility] [place] [address], [facility] PRODUCT CODE 4 E0336 Normal [facility] Comment on above: Performed By: #### 8 6004 ####[facility] [facility] [place] [address], [facility] PRODUCT STATUS 1 RE Normal [facility] Comment on above: Result Comment: Resu lt changed by IF on 08/11/2017 00:26. The previous value was XM.Result changed by IF on 08/11/2017 01:42. The previous value was IS.Result changed by IF on 08/14/2017 07:03. The previous value was XM. Performed By: #### 8 6004 ####[place] [address] [facility] [place] [address], [facility] PRODUCT STATUS 2 PT Normal [facility] Comment on above: Result Comment: Resu lt changed by IF on 08/11/2017 00:26. The previous value was XM.Result changed by IF on 08/12/2017 02:00. The previous value was IS. Performed By: #### 8 6004 ####[facility] [facility] [place] [address], [facility] PRODUCT STATUS 3 RE Normal [facility] Comment on above: Result Comment: Resu lt changed by IF on 08/12/2017 15:16. The previous value was XX. Performed By: #### 8 6004 ####[facility] [facility] [place] [address], [facility] PRODUCT STATUS 4 RE Normal [facility] Comment on above: Result Comment: Resu lt changed by IF on 08/11/2017 00:26. The previous value was XM.Result changed by IF on 08/11/2017 01:42. The previous value was IS.Result changed by IF on 08/14/2017 07:03. The previous value was XM. Performed By: #### 8 6004 ####[facility] [place] [address], [facility] UNIT ABO 1 O Normal [facility] Comment on above: Performed By: #### 8 6004 ####[facility] [place] [address], [facility] UNIT ABO 2 O Normal [facility] Comment on above: Performed By: #### 8 6004 ####[facility] [place] [address], [facility] UNIT ABO 3 O Normal [facility] Comment on above: Performed By: #### 8 6004 ####[facility] [place] [address], [facility] UNIT ABO 4 O Normal [facility] Comment on above: Performed By: #### 8 6004 ####[facility] UNIT ID 1 [id number] Normal [facility] Comment on above: Performed By: #### 8 6004 ####[facility] [facility] UNIT ID 2 [id number] Normal [facility] Comment on above: Performed By: #### 8 6004 ####[facility] UNIT ID 3 [id number] Normal [facility] Comment on above: Performed By: #### 8 6004 ####[facility] [place] [address], [facility] UNIT ID 4 [id number] Normal [facility] Comment on above: Performed By: #### 8 6004 ####[facility] [place] [address], [facility] UNIT RH 1 Negative Normal [facility] Comment on above: Performed By: #### 8 6004 ####[facility] [place] [address], [facility] UNIT RH 2 Negative Normal [facility] Comment on above: Performed By: #### 8 6004 ####[facility] [place] [address], [place] UNIT RH 3 Negative Normal [facility] Comment on above: Performed By: #### 8 6004 ####[facility] [place] [address], [place] UNIT RH 4 Negative Normal [facility] Comment on above: Performed By: #### 8 6004 ####[facility] [place] [address], [facility] SERUM TESTon 08-11 TEST Negative Normal [facility] Comment on above: Performed By: #### 4 6473 ####[facility] [place] [address], [facility] TYPE AND CROSSMATCHon 2017 ABO INTERPRETATION O Normal [facility] Comment on above: Performed By: #### 6 2594 ####[facility] [place] [address], [facility] ANTIBODY SCREEN Negative Normal [facility] Comment on above: Performed By: #### 6 2594 ####[facility] [place] [address], [place] RH INTERPRETATION Negative Normal [facility] Comment on above: Performed By: #### 6 2594 ####[facility] [place] [address], [place] Vital Signs Date Time Vital Sign Value Performing Clinician Facility 04-21-2024 08:39-0500 Body mass index (BMI) [Ratio] 18.64 kg/m2 Giovanni Gill SATELLITE MANAGER Work Phone: [facility] 04-21-2024 08:39-0500 Body weight 50.8 kg Giovanni Gill SATELLITE MANAGER Work Phone: [facility] 04-21-2024 08:39-0500 Diastolic blood pressure 75 mm[Hg] Giovanni Gill SATELLITE MANAGER Work Phone: [facility] 04-21-2024 08:39-0500 Heart rate 76 /min Giovanni Gill SATELLITE MANAGER Work Phone: [facility] 04-21-2024 08:39-0500 Systolic blood pressure 128 mm[Hg] Giovanni Gill SATELLITE MANAGER Work Phone: [facility] 02-22-2024 14:35-0400 SaO2% (BldA) [Mass fraction] 95 % Mariola Simon PA-C Work Phone: [facility] 02-22-2024 14:33-0400 Diastolic blood pressure 73 mm[Hg] Mariola Simon PA-C Work Phone: [facility] 02-22-2024 14:33-0400 Heart rate 92 /min Mariola Simon PA-C Work Phone: [facility] 02-22-2024 14:33-0400 Systolic blood pressure 133 mm[Hg] Mariola Simon PA-C Work Phone: [facility] 01-14-2024 13:40-0400 Body height 167.6 cm Mariola Simon PA-C Work Phone: [facility] 01-14-2024 13:40-0400 Body mass index (BMI) [Ratio] 19.21 kg/m2 Mariola Simon PA-C Work Phone: [facility] 01-14-2024 13:40-0400 Body weight 53.98 kg Mariola Simon PA-C Work Phone: [facility] 01-14-2024 13:40-0400 Diastolic blood pressure 63 mm[Hg] Mariola Simon PA-C Work Phone: [facility] 01-14-2024 13:40-0400 Heart rate 92 /min Mariola HUDSON-C Work Phone: [facility] 01-14-2024 13:40-0400 SaO2% (BldA) [Mass fraction] 92 % Mariola Montes PA-C Work Phone: [facility] 01-14-2024 13:40-0400 Systolic blood pressure 144 mm[Hg] Mariola HUDSON-C Work Phone: [facility] 10-07-2023 09:46-0400 Diastolic blood pressure 70 mm[Hg] Mri (I-Stat/1.5t/3t) Work Phone: [facility] 10-07-2023 09:46-0400 Heart rate 103 /min Mri (I-Stat/1.5t/3t) Work Phone: [facility] 10-07-2023 09:46-0400 Respiratory rate 16 /min Mri (I-Stat/1.5t/3t) Work Phone: [facility] 10-07-2023 09:46-0400 SaO2% (BldA) [Mass fraction] 93 % Mri (I-Stat/1.5t/3t) Work Phone: [facility] Comment on above: RA 10-07-2023 09:46-0400 Systolic blood pressure 144 mm[Hg] Mri (I-Stat/1.5t/3t) Work Phone: [facility] 09-13-2023 09:23-0400 Body height 167.6 cm David Valente MD Work Phone: [facility] 09-13-2023 09:23-0400 Body weight 55.79 kg David Valente MD Work Phone: [facility] 09-13-2023 09:23-0400 Diastolic blood pressure 71 mm[Hg] David Valente MD Work Phone: [facility] 09-13-2023 09:23-0400 Heart rate 85 /min David Valente MD Work Phone: [facility] 09-13-2023 09:23-0400 SaO2% (BldA) [Mass fraction] 95 % David Valente MD Work Phone: [facility] 09-13-2023 09:23-0400 Systolic blood pressure 132 mm[Hg] David Valente MD Work Phone: [facility] 07-16-2023 15:42-0500 Heart rate 117 /min [facility] 07-16-2023 15:42-0500 Respiratory rate 19 /min [facility] 07-16-2023 15:42-0500 SaO2% (BldA) [Mass fraction] 94 % [facility] 07-16-2023 15:00-0500 Diastolic blood pressure 99 mm[Hg] [facility] 07-16-2023 15:00-0500 Mean blood pressure 121 mm[Hg] [facility] 07-16-2023 15:00-0500 Respiratory rate 33 /min [facility] 07-16-2023 15:00-0500 Systolic blood pressure 166 mm[Hg] [facility] 07-16-2023 14:30-0500 Diastolic blood pressure 77 mm[Hg] [facility] 07-16-2023 14:30-0500 Heart rate 103 /min [facility] 07-16-2023 14:30-0500 Mean blood pressure 100 mm[Hg] [facility] 07-16-2023 14:30-0500 Respiratory rate 14 /min [facility] 07-16-2023 14:30-0500 SaO2% (BldA) [Mass fraction] 93 % Demarco [facility] 07-16-2023 14:30-0500 Systolic blood pressure 147 mm[Hg] [facility] 07-16-2023 13:30-0500 Body temperature 97.88 [degF] [facility] 07-16-2023 13:30-0500 Diastolic blood pressure 84 mm[Hg] Demarcojudy [facility] 07-16-2023 13:30-0500 Mean blood pressure 105 mm[Hg] Demarcojudy [facility] 07-16-2023 13:30-0500 Systolic blood pressure 146 mm[Hg] [facility] 07-16-2023 11:37-0500 Body temperature 97.16 [degF] [facility]co [facility] 07-16-2023 11:37-0500 Heart rate 119 /min Demarcojudy [facility] 07-16-2023 11:37-0500 Respiratory rate 18 /min Demarcojudy [facility] 06-23-2023 14:00-0500 Hourly Rounding [facility] 14:00-0500 [facility] 13:00-0500 Hourly Rounding [facility] 06-23-2023 13:00-0500 Promise to Return Mela Espinal [facility] 06-23-2023 12:00-0500 Hourly Rounding [facility] 06-23-2023 12:00-0500 Promise to Return [facility] 06-23-2023 11:22-0500 Heart rate 107 /min [facility] 06-23-2023 11:22-0500 SaO2% (BldA) [Mass fraction] 94 % [facility] 06-23-2023 11:21-0500 Diastolic blood pressure 82 mm[Hg] [facility] 06-23-2023 11:21-0500 Mean blood pressure 108 mm[Hg] [facility] 06-23-2023 11:21-0500 Systolic blood pressure 162 mm[Hg] [facility] 06-23-2023 11:20-0500 Body temperature 97.7 [degF] [facility] 06-23-2023 08:20-0500 SaO2% (BldA) [Mass fraction] 98 % [facility] 06-23-2023 07:19-0500 Heart rate 84 /min [facility] 06-23-2023 07:19-0500 SaO2% (BldA) [Mass fraction] 100 % [facility] 06-23-2023 07:18-0500 Body temperature 97.52 [degF] [facility] 06-23-2023 07:18-0500 Diastolic blood pressure 81 mm[Hg] [facility] 06-23-2023 07:18-0500 Mean blood pressure 99 mm[Hg] [facility] 06-23-2023 07:18-0500 Systolic blood pressure 137 mm[Hg] [facility] 06-23-2023 06:17-0500 Blood Pressure Location [facility] 06-23-2023 06:17-0500 Body temperature 97.52 [degF] [facility] 06-23-2023 06:17-0500 Diastolic blood pressure 74 mm[Hg] [facility] 06-23-2023 06:17-0500 Heart rate 99 /min [facility] 06-23-2023 06:17-0500 Respiratory rate 17 /min [facility] 06-23-2023 06:17-0500 Systolic blood pressure 159 mm[Hg] [facility] 06-23-2023 05:01-0500 Heart rate 102 /min [facility] 06-23-2023 05:01-0500 Mean blood pressure 98 mm[Hg] [facility] 06-23-2023 05:01-0500 Respiratory rate 19 /min [facility] 06-23-2023 04:30-0500 Mean blood pressure 95 mm[Hg] [facility] 06-23-2023 04:30-0500 Respiratory rate 16 /min [facility] 06-23-2023 03:00-0500 Mean blood pressure 121 mm[Hg] [facility] 06-23-2023 03:00-0500 Respiratory rate 20 /min [facility] 06-23-2023 02:43-0500 Respiratory rate 18 /min [facility] 06-23-2023 02:30-0500 Respiratory rate 18 /min [facility] 06-23-2023 01:40-0500 gluc 96 mg/dL [facility] 06-23-2023 01:40-0500 gluc [facility] 06-23-2023 01:38-0500 gluc 96 mg[facility] 01:38-0500 gluc Mela [facility] 06-23-2023 01:37-0500 Heart rate 117 /min [facility] 05-15-2023 13:50-0500 Body height 167.64 cm MD Kavon Sams Work Phone: [facility] 05-15-2023 13:50-0500 Body weight 57.15 kg MD Kavon Sams Work Phone: [facility] Encounters Encounter Date Encounter Type Care Provider Facility Start: 04-23-2024 ambulatory GIOVANNI GILL Not Avail able Start: 04-21-2024 End: 04-21-2024 Bamboo chelseaheet Giovanni Gill SATELLITE MANAGER [facility] Start: 04-21-2024 End: 04-21-2024 Bamboo chelseaheet Giovanni Gill SATELLITE MANAGER Work Phone: [facility] Start: 04-21-2024 End: 04-21-2024 Office outpatient visit 25 minutes Giovanni Gill SATELLITE MANAGER Work Phone: [facility] Comment on above: Parkinson's disease, unspecified whether dyskinesia present, unspecified whether manifestations fluctuate (CMS/HCC) (Primary Dx); Dyskinesia; RLS (restless legs syndrome); Cerebral infarction, chronic; Bilateral carotid artery stenosis Start: 04-21-2024 End: 04-21-2024 ambulatory GIOVANNI GILL Not Available Start: 02-23-2024 End: 02-25-2024 Refill Mariola Montes PA-C Work Phone: [facility] Comment on above: Refill Request Start: 02-22-2024 End: 02-22-2024 Office outpatient visit 40 minutes Mariola Montes PA-C Work Phone: [facility] Comment on above: Parkinson's disease with dyskinesia and fluctuating manifestations (HCC) (Primary Dx) Start: 02-22-2024 End: 02-22-2024 ambulatory MARIOLA MONTES Facility:[facility] Start: 01-14-2024 End: 01-14-2024 ambulatory MARIOLA MONTES Facility:[facility] Start: 01-14-2024 End: 01-14-2024 Office outpatient visit 40 minutes Mariola Montes PA-C Work Phone: [facility] Comment on above: Parkinson's disease with dyskinesia and fluctuating manifestations (HCC) (Primary Dx) Start: 12-20-2023 End: 12-20-2023 ambulatory STEPHENIE PRECIADO [facility] Start: 11-27-2023 End: 11-27-2023 ambulatory VERENA SHEEHAN [facility] Start: 11-19-2023 End: 11-19-2023 ambulatory Rafa Abebe MD Facility:[facility] Start: 11-08-2023 Telephone encounter David Valente MD Work Phone: [facility] Comment on above: Medication Update/Am antadine Start: 10-29-2023 End: 10-29-2023 ambulatory GIOVANNI GILL Not Available Start: 10-22-2023 End: 10-22-2023 ambulatory Rafa Abebe MD Facility:[facility] Start: 10-17-2023 Refill Neelima SegundoBACKSIDE GRINDER Work Phone: [facility] Comment on above: Med Change Request Start: 10-17-2023 Telephone encounter David Valente MD Work Phone: [facility] Comment on above: Results (MRI) Start: 10-15-2023 End: 10-15-2023 ambulatory Neelima Ortega APRN.BACKSIDE GRINDER Work Phone: Neurology Comment on above: Parkinson's disease with dyskinesia and fluctuating manifestations (HCC) (Primary Dx) Start: 10-15-2023 End: 10-15-2023 Telemedicine consultation with patient Neelima Ortega APRN.BACKSIDE GRINDER Work Phone: Neurology Start: 10-09-2023 Telephone encounter David Valente MD Work Phone: [facility] Start: 10-07-2023 End: 10-07-2023 ambulatory DAVID VALENTE Facility:[facility] Start: 10-07-2023 End: 10-07-2023 ambulatory [facility] Facility:[facility] Start: 10-07-2023 End: 10-07-2023 Subsequent hospital visit by physician Mri 4 Radio Main Q (I-Stat/1.5t/3t) Work Phone: MRI Q Comment on above: Spinal stenosis of c ervical region [M48.02] Abnormal posture [R2 9.3] 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 [M48.062] Start: 09-26-2023 End: 09-26-2023 ambulatory [facility] Start: 09-18-2023 Evaluation and manag ement of inpatient JOSH MCLER [facility] Start: 09-17-2023 End: 09-18-2023 Evaluation and management of inpatient [facility] Start: 09-13-2023 End: 09-13-2023 ambulatory DAVID VALENTE Facility:[facility] Start: 09-13-2023 End: 09-13-2023 [facility] DAVID VALENTE Facility:[facility] Start: 09-13-2023 End: 09-13-2023 Patient encounter procedure David Valente MD Work Phone: [facility] Comment on above: Hyperreflexia (Prima ry Dx); Spinal stenosis of cervical region; Abnormal posture; Spinal stenosis of lumbar region with neurogenic claudication; Neuropathy; Hypertension, unspecified type; Degenerative myopia with other maculopathy, bilateral eye; Parkinson's disease, unspecified whether dyskinesia present, unspecified whether manifestations fluctuate (HCC); Memory changes Start: 09-03-2023 End: 09-03-2023 ambulatory Rafa Abebe MD [facility] Start: 08-22-2023 End: 08-22-2023 ambulatory [facility] Start: 08-20-2023 End: 08-20-2023 ambulatory Rafa Abebe MD [facility] Start: 08-14-2023 End: 08-14-2023 ambulatory Giovanni Gill Facility:[facility] Start: 08-13-2023 End: 08-13-2023 ambulatory [facility] Start: 08-13-2023 End: 08-13-2023 ambulatory [facility] Start: 08-07-2023 End: 08-07-2023 ambulatory [facility] Start: 07-30-2023 End: 07-30-2023 ambulatory Rafa Abebe MD Facility: [place] Start: 07-16-2023 End: 07-16-2023 Emergency department patient visit Demarco Beaver Facility:[facility] Start: 07-16-2023 End: 07-16-2023 Emergency department patient visit Demarco Beaver [facility] Start: 07-06-2023 End: 07-06-2023 ambulatory [facility] Start: 06-23-2023 End: 06-23-2023 ambulatory Mela Espinal Facility:[facility] Start: 06-23-2023 End: 06-23-2023 Observation Mela Espinal [facility] Start: 05-15-2023 End: 05-15-2023 ambulatory Giovanni Gill Facility:[facility] Start: 05-15-2023 End: 05-15-2023 ambulatory MD Kavon Sams Work Phone: [facility] Work Phone: Start: 05-15-2023 End: 05-15-2023 Patient encounter procedure MD Kavon Sams Work Phone: [facility] Work Phone: Start: 01-12-2023 End: 01-12-2023 ambulatory [facility] Start: 10-09-2022 End: 10-10-[address] KAVON SAMS . Facility: Start: 05-24-2022 End: 05-25-[address] KAVON SAMS . Facility: Start: 05-08-2022 End: 05-10-2022 Evaluation and management of inpatient DR KAVON SAMS . Facility: Start: 03-29-2022 End: 03-29-[address] MISAEL PEDRAZA . Facility: Start: 12-27-2021 End: 12-28-[address] KAVON SAMS . Facility: Start: 08-13-2017 End: 08-14-2017 Ambulatory DEFAULT PHYSICIAN Facility:[facility] Start: 08-11-2017 End: 08-15-2017 Evaluation and management of inpatient REFERRED SELF Facility:[facility] Start: 07-02-2013 EKG myocardial ischemia David Valente MD Work Phone: [facility] Work Phone: Procedures Date Procedure Procedure [...] NONAUT FRO KRYSTYNA PLASMA IN PERIPH VEIN, [facility] Irving HEIDT Start: 08-11-2017 TRANSFUSE NONAUT HARRY TELETS IN PERIPH VEIN, [facility] SU[facility] Irving HEIDT Start: 08-11-2017 TRANSFUSE NONAUT RED BLOOD CELLS IN PERIPH VEIN, [facility] Irving HEIDT Appendectomy Mela Genjose Cataract (morphologi c abnormality) Mela Genbrandti Hysterectomy Mela Gennari Splenectomy Mela Genjose Plan of Treatment Date Care Activity Detail Author Start: 09-17-2026 Diabetes Screening [facility] Start: 09-12-2026 Diabetes Screening [facility] Start: 05-21-2024 End: 05-21-2024 Patient encounter procedure 05/21/2024 1:00 PM EST Office Visit NOMMario DE LOS SANTOS [facility] [address] [place] [phone] Giovanni Gill NP [address] [place] [address] [facility] Start: 05-03-2024 End: 05-03-2024 Professional / ancillary services management 05/03/2024 3:20 PM EST Ancillary Procedure NOMMario DE LOS SANTOS [facility] [address] [facility] [address] [place] [phone] Cerebral infarction, chronic; Bilateral carotid artery [facility] Comment on above: Cerebral infarction, chronic; Bilateral carotid artery stenosis Start: 04-21-2024 End: 04-21-2024 Patient encounter procedure 04/21/2024 8:40 AM EST Office Visit NOMMario DE LOS SANTOS [facility] [address] [facility] [place] [phone] Giovanni Gill NP [address] [place] [address] Arrived [facility] [place] [facility] Comment on above: Arrived Start: 02-22-2024 End: 02-22-2024 Patient encounter procedure 02/22/2024 3:00 PM EDT Office Visit [facility] [address] [place] [address] Mariola Montes PA-C [address] [place] [address] [facility] Start: 02-10-2024 Covid-19 Vaccine ( season) Covid-19 Vaccine () [facility] Start: 02-10-2024 Influenza vaccination [facility] Start: 01-14-2024 End: 01-14-2024 Patient encounter procedure 01/14/2024 2:00 PM EDT Office Visit [facility] [address] [place] [address] Mariola Montes PA-C [address] [place] [address] 3 mo f/u [facility] Comment on above: 3 mo f/u Start: 10-15-2023 End: 10-15-2023 Follow-up encounter 10/15/2023 10:30 AM [facility] [address] [place] [address] Neelima Ortega APRN.BACKSIDE GRINDER [address] [facility] [facility] [place] [place] [address] Follow up Neurology Comment on above: Follow up Start: 09-13-2023 End: 12-13-2023 SUJEY BY IFA WITH REFLEX [facility] Work Phone: Comment on above: Expected: 09/13/2023 , Expires: 12/13/2023 Start: 09-13-2023 End: 12-13-2023 Methylmalonate [Moles/volume] in Serum or Plasma [facility] Work Phone: Comment on above: Expected: 09/13/2023 , Expires: 12/13/2023 Start: 09-13-2023 End: 12-13-2023 PROTEIN ELECT RND UR W/[facility] Work Phone: Comment on above: Expected: 09/13/2023 , Expires: 12/13/2023 Start: 09-13-2023 End: 12-13-2023 PROTEIN ELECTROPHORESIS SERUM W/[facility] Work Phone: Comment on above: Expected: 09/13/2023 , Expires: 12/13/2023 Start: 06-11-2023 Advance Directive Discussion Advance Directive Discussion [facility] Start: 02-09-2023 Covid-19 Vaccine ( season) Covid-19 Vaccine ( season) [facility] Start: 10-28-2020 Pneumococcal Vaccine : 65+ (2 of 2 - PCV) Pneumococcal Vaccine: 65+ (2 of 2 - PCV) [facility] Start: 2011 Screening for osteoporosis Bone Density Screening [facility] Start: 2006 RSV Vaccine (1 - 1-d ose 60+ series) RSV Vaccine (1 - 1-dose 60+ series) [facility] Start: 02-09-1996 Shingrix Vaccine (1 of 2) Avelar grix Vaccine (1 of 2) [facility] Start: 1965 Urine microalbumin profile DTaP,Tdap,Td Vaccine (1 - Tdap) [facility] Start: 02-09-1964 Annual PCP Team Client Advisor mary alice Disease Visit Annual PCP Team Chronic Disease Visit [facility] Start: 02-09-1964 Anxiety Screening Anxiety Screening [facility] Start: 02-09-1964 BP Controlled (<130/80) BP Con trolled (<130/80) [facility] Start: 02-09-1964 Depression Screening Depression Scre ening [facility] Start: 02-09-1964 Hepatitis C screening Hepatitis C Sc thomas [facility] End: 10-12-2024 MR Cervical spine WO contrast MRI CERVICAL SPINE WO IVCON Radiology Routine Spinal stenosis of cervical region 1 Occurrences starting 09/13/2023 until 10/12/2024 [facility] Work Phone: Comment on above: 1 Occurrences starti ng 09/13/2023 until 10/12/2024 End: 10-12-2024 MR Lumbar spine WO contrast MRI LUMBAR SPINE WO IVCON Radiology Routine Spinal stenosis of lumbar region with neurogenic claudication 1 Occurrences starting 09/13/2023 until 10/12/2024 [facility] Work Phone: Comment on above: 1 Occurrences starti ng 09/13/2023 until 10/12/2024 End: 10-12-2024 MR Thoracic spine WO contrast MRI THORACIC SPINE WO IVCON Radiology Routine Abnormal posture 1 Occurrences starting 09/13/2023 until 10/12/2024 [facility] Work Phone: Comment on above: 1 Occurrences starti ng 09/13/2023 until 10/12/2024 [facility] Immunizations Immunization Date Immunization Notes Care Provider Fa cility 03-14-2021 influenza virus vacc ine, unspecified formulation David Valente MD Work Phone: [facility] Payers Date Payer Category Payer Medicare [id number] 2023 Private Health Insurance [employer] SUPPLEMENT [id number] 2023 Unknown 2023 Self-pay [id number] 2011 Medicare [id number] 1959 Medicare [id number] 1959 Unknown [id number] 1946 Unknown [id number] [id number] .593 1946 Unknown [id number] 2.16.840.1.647236.3.579.2 .593 1946 Unknown [id number] 2.16.840.1.499529.3.579.2 .593 1946 Unknown [id number] 2.16.840.1.775835.3.579.2 .593 1946 Unknown [id number] 2.16.840.1.042885.3.579.2 .593 1946 Unknown [id number] 2.16.840.1.373684.3.579.2 .727 1946 Unknown [id number] 2.16.840.1.922748.3.579.2 .727 1946 Unknown [id number] 2.16.840.1.591758.3.579.2 .196 1946 Unknown [id number] 2.16.840.1.784728.3.579.2 .196 1946 Unknown [id number] 2.16.840.1.044800.3.579.2 .196 1946 Unknown [id number] 2.16.840.1.841564.3.579.2 .196 1946 Unknown [id number] 2.16.840.1.383940.3.579.2 .196 1946 Unknown [id number] 2.16.840.1.523828.3.579.2 .1259 1946 Unknown [id number] 2.16.840.1.914145.3.579.2 .1259 1946 Unknown [id number] 2.16.840.1.954004.3.579.2 .1259 Medicare [id number] Unknown [id number] 2.16.840.1.432345.3.579.2 .531 Unknown [id number] [id number] .531 Social History Date Type Detail Facility Tobacco smoking stat [facility] Unknown if ever smoked [facility] Work Phone: Start: 1945 Sex Assigned At Female [facility] Start: 03-04-2020 End: 02-22-2024 Tobacco smoking status Ex-smoker (finding) [facility] Start: 09-13-2023 End: 10-25-2023 Sex Assigned At Female [facility] Start: 07-02-1958 End: 04-30-2019 History of tobacco use Current smoker [facility] Start: [birth year]-02-1957 End: 04-30-2019 History of tobacco use Cigarette Smoker [facility] Start: 09-13-2023 End: 10-25-2023 Cigarettes smoked current (pack per day) - Reported 0.5 [facility] Start: 09-13-2023 End: 02-22-2024 Tobacco use and exposure Smokeless tobacco non-user [facility] Start: 09-13-2023 End: 02-22-2024 Alcohol intake Current non-drinker of alcohol (finding) [facility] Adult Depression Screening Assessment 0 [facility] Start: 1945 Sex Assigned At Not on file [facility] Start: 10-25-2023 [facility] Start: 10-29-2023 End: 04-21-2024 Alcoholic beverage intake Lifetime non-drinker (finding) [facility] Start: 10-25-2023 Alcohol Comment caffeine: 1-2 cups per day [facility] Functional Status Date Assessment Result Facility 07-16-2023 Functional Status N/A [facility] 06-23-2023 Functional Status N/A [facility] 06-23-2023 Functional Status [facility] Clinical Notes 01-12-2023 to 04-21-2024 Giovanni Gill NP - 04/21/2024 8:40 AM Mariloa Brewer PA-C - 02/22/2024 3:00 PM EDTBGa steel [place] - 02/22/2024 2:44 PM EDTPatient Mariola Trammell PA-C - 01/14/2024 2:00 PM EDT Note Date & Type Note Facility 04-21-2024 History of Present illness Narrative Images from the original note were not included. Chief Complaint Patient presents with Parkinson's Disease Insomnia Carpal Tunnel Subjective Judith Khan, 79 y.o., female Patient presents today for a follow up to Parkinson's. She presents with a family member, Jaimee. She admits ED visit at [facility] recently for fall, states she was diagnosed with a UTI. Currently on Cipro for this and she states she is feeling much better.. She follows with [facility] and [facility] management and admits visits. She continues on Sinemet CR TID, ropinirole daily, azilect daily and amantadine which is now BID. She states her tremors have greatly improved and her movement has improved as well. Overall she states her Parkinsons is well controlled. Denies any difficulty swallowing. She states her pain has improved, admits ablation with pain management. Continues on gabapentin and a muscle relaxer for pain management. Patient completed PT, ST and OT. These are helpful. Denies any recent visits to cardiology. Denies any concerns today. Review of Systems Constitutional: Negative for appetite change, fatigue and fever. Respiratory: Negative for cough, shortness of breath and wheezing. Cardiovascular: Negative for chest pain, palpitations and leg swelling. Gastrointestinal: Negative for abdominal pain, constipation, diarrhea and nausea. Musculoskeletal: Positive for arthralgias, back pain, gait problem and myalgias. Neurological: Positive for tremors. Negative for dizziness, numbness and headaches. Past Medical History: Diagnosis Date COPD (chronic obstructive pulmonary disease) (CMS/HCC) H/O splenectomy Hypertension (CMS/HCC) Recurrent UTI Ruptured spleen Past Surgical History: Procedure Laterality Date SPLENECTOMY, TOTAL Family History Problem Relation Name Age of Onset Hypertension Mother Stroke Mother Cancer Father Other (hearing deficiency) Other Cancer Sibling Stroke Sibling Social History Tobacco Use Smoking status: Never Smokeless tobacco: Not on file Substance Use Topics Alcohol use: Never Comment: caffeine: 1-2 cups per day Allergies: Sulfa antibiotics Vitals: 04/21/24 0839 BP: 128/75 Pulse: 76 Body mass index is 18.64 kg/m . weight: 112 lb Neurologic exam: Mental status: Well nourished, well developed and in no acute distress. Grossly oriented to person, place and time. Recent and remote memory are intact. Language is fluent without aphasia. Attention and concentration are normal. Fund of knowledge is appropriate for level of education. Cranial nerves: CN II: Visual acuity is normal. Visual calderon full to confrontation. CN III, IV, : pupils equal round and reactive to light. Extraocular movements intact. No ptosis present. CN V: Facial sensation is normal. CN VII: Full and symmetric facial movement. CN VIII: Hearing is intact. CN IX and X: Palate elevates symmetrically. CN XI: Shoulder shrug is normal bilaterally. CN XII: Tongue is midline without atrophy or fasciculation. Motor: RUE Strength deltoid, , biceps , triceps , wrist extensors , wrist flexor 5/5 , computing machine operator strength 4/5. LUE Strength deltoid , biceps , triceps , wrist extensors , wrist flexor , computing machine operator strength 5/5. RLE Strength illopsoas, quadriceps, tibialis anterior, and gastrocnemius strength 5/5. LLE Strength illopsoas, quadriceps, tibialis anterior, and gastrocnemius strength 5/5. Mild-moderate bradykinesia bilaterally R>L. Now very mild rest tremor of R>L upper extremity and RLE. Mildly increased tone RUE (improved). Dyskinetic movements of the torso have resolved. Sensory: Sensation is intact to light touch throughout distal extremities. Reflexes: RUE biceps reflex 2+ , brachioradialis reflex 2+. LUE biceps reflex 2+ , brachioradialis reflex 2+. RLE knee reflex 2+. LLE knee reflex 2+. Dangelo's Sign negative. Coordination: [id number]-pt-[id number] testing is normal Gait: Normal Review and summary of old records: Cardio note (Dr. Stephenie Preciado) on 12/20/23: Abnormal stress test with EKG changes but no perfusion defects as per report. No cardiac complaints. COPD, hypertension, hyperlipidemia. Again discussed invasive ischemic evaluation with patient. Patient understands risks and declined evaluation. Continue aspirin, statin, beta-ayo. Follow-up in 3 months MRI of the brain with and without contrast at [facility] on 08/14/2023: No acute intracranial abnormality. No significant change in brain findings compared to the 05/15/2023 study. MRI of the cervical/thoracic/lumbar spine (ordered by [facility]) on 10/07/23: Degenerative changes at the cervical levels without significant canal stenosis. Foraminal narrowing of up to a moderate degree seen at some cervical levels. Small disc protrusions some thoracic levels. No significant canal or foraminal narrowing involving the thoracic spine. Degenerative changes at the lumbar levels with resulting mild canal stenosis and mild right foraminal narrowing at L3-L4. MRI of the thoracic spine ( ordered by [facility]) on 09/29/2023: CT of the head/brain without contrast on 06/23/23:no acute intracranial changes. EKG on 06/23/23: Possible left atrial enlargement and left ventricular hypertrophy. Possible septal myocardial infarction, likely old. ECHO on 06/01/23: Normal. Ventricular function. LVEF is 60%. No significant valvular dysfunction. Normal right-sided pressures. There is evidence of a compression in the lateral wall. The left atrium, likely related to the presence of a large hiatal hernia (patient is following PCP for this finding). Cholesterol panel on 05/25/23: Triglycerides 74, cholesterol 194, HDL 89, LDL 91, ratio 2.2 MRI of the brain with and without contrast at [facility], on 05/15/23: no acute intracranial pathology or abnormal postcontrast enhancement. Chronic age-related neuro degenerative changes are redemonstrated. 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 Remote lacunar infarcts are noted in the putamen bilaterally. EMG of the right upper extremity on 03/29/23: Normal EMG Labs ordered by PCP on 10/09/22: MG 2.0 (WNL), iron 52 (WNL), ferritin 68, Vit D 89.3 (L), CBC overall unremarkable, CMP: ALP 134 (H), BUN 25 (H), TSH 1.7 (WNL) CT head wo contrast 12/2021: No appreciable acute abnormality to account for patient's symptoms. Old lacunar infarctions within right basal ganglia. Age consistent atrophy and chronic small vessel ischemic changes. Assessment/Plan Diagnoses and all orders for this visit: Parkinson's disease, unspecified whether dyskinesia present, unspecified whether manifestations fluctuate (CMS/HCC) It is my impression the patient has Parkinson's disease. Evidence of bradykinesia, mild rigidity on the right, and unilateral rest tremor on right. Head CT 2021 showed old lacunar infarctions within right basal ganglia and some age related ischemic changes, otherwise unremarkable. Consideration given to vascular parkinsons. Sinemet has previously been reported as beneficial though she developed dyskinetic movements of the upper extremities and torso concerning for overmedication even with minimal dosing. All symptoms of dyskinesia/chorea type movements resolved with discontinuation though with this a more significant clinical of Parkinsons also became apparent. We have even attempted smaller doses but again with dyskinesias. Ropinirole has not made a significant impact even with an increase in dose. Rasagaline did provide some improvement. She is now following with [facility] movement clinic and is now taking Sinemet CR along with amantadine with substantial improvement in her symptoms. PLAN: - Continue follow up with [facility] movement clinic as per their recommendations. - Continue rasagiline 1mg PO daily. Advised patient and family to monitor BP due to cardiovascular risks. - Continue ropinirole 0.25 mg by mouth at bedtime (dose decreased by [facility]) - Now taking Sinemet 25/100 mg PO TID and amantadine 100 mg PO BID per [facility] - Continue PT/OT/ST home exercises. Dyskinesia See above RLS (restless legs syndrome) The patient has a diagnosis of RLS. Ferritin level on 10/09/22 was 68 (ordered by PCP) PLAN: - Continue to monitor clinically - Continue ropinirole 0.25 mg PO at bedtime Cerebral infarction, chronic Head CT in 2021 showed old lacunar infarctions within right basal ganglia and some age related ischemic changes. She has been on ASA 81 mg PO daily since this and reports prevoius evaluation by cardiology. However, repeat imaging with Brain MRI 05/15/23 demonstrates a remote infarct in the left cerebellar hemisphere and remote lacunar infarcts in the putamen bilaterally. Given the bilateral nature of the infarcts there is concern for a cardioembolic cause in relation to this. Most recent lipid panel demonstrates ok control. ECHO was unremarkable. She did have an acute IP stay for weakness which was thought to be the result of a freezing episode, CT was nonacute and MRI 08/14/23 was without changes. PLAN: -We have sent update to cardiology regarding these concerns along with ECHO results (Dr. Stephenie Preciado). Per most recent cardio note in December 2023 further invasive cardiology evaluation was discussed and declined by the patient. - Will obtain carotid US for further evaluation - Consideration is given to the addition of Plavix. Will consider this pending the above evaluation. - Continue ASA 81 mg PO daily - Continue pravastatin (managed by PCP), Reportedly repeat lipid panel has been ordered by another provider. Will review results once available. - Signs and symptoms of stroke discussed in detail and advised the patient to seek emergent evaluation in the ED should any such signs and symptoms develop. The patient verbalized understanding. Carpal tunnel syndrome of right wrist The patient has symptoms concerning for CTS on the right including pain and decreased computing machine operator strength. She admits to previous use of a cock up splint which has been intermittently beneficial. EMG of the RUE 03/29/23 was normal. PLAN: - Recommended continued use of cock up splint - Continue to monitor clinically Other chronic pain The patient reports diffuse and chronic pain of the bilateral arms, legs, and back in no single dermatomal distribution. PLAN: - Continue follow up with pain management Service was performed by Giovanni FLORES-C in collaboration with Dr. Rao who is present in the office today. Follow up in 1 month following Carotid Duplex and Labs or sooner if symptoms worsen, fail to improve, or should a new neurological concern arise. Pt has been fully educated on their diagnosis, treatment options, follow up plan, and return instructions Cosigned by Baljeet Rao DO at 04/21/2024 10:10 AM EST documented in this encounter [facility] 02-22-2024 History of Present illness Narrative CNR-MOVEMENT [...] some every day Dry mouth - please tile picker some OTC spray to help Please [...] that she is going to travel to [place] to see her friends, which prior to [...] Parkinson's Disease since 2014. She presents to [facility] spring for care after many years of [...] or around: 11/21/24 Level of service : 59050 (40-54 min). Time spent 41 min on the day of service, which included preparing to see the patient, bfvt-uc-rzyh patient care, completing clinical documentation, obtaining and/or [...] of stress/struggling or is interrupted by their computing machine operator. documented in this encounter [facility] 02-22-2024 Note HNO ID: [id number] Author: MARIOLA MONTES PA-C Service: ? Author Type: Physician Extended Day Teacher Type: Progress Notes Filed: 02/22/2024 16:46 Note [...] some every day Dry mouth - please tile picker some OTC spray to help Please come back to see me Sunday, February 21 at 3:00PM Interval History: Judith [...] that she is going to travel to [place] to see her friends, which prior to [...] mild slowing, c) (more content not included)... [facility] 02-22-2024 Note HNO ID: [id number] Author: GA SHAW MA Service: ? Author Type: Conveyor Belt Installer Type: Progress Notes Filed: 02/22/2024 16:46 Note Text: Reason for WROTF Tablet to not get completed: Patient wishes to abort because of stress/struggling or is interrupted by their computing machine operator. [facility] 01-14-2024 Instructions Mariola Montes PA-C - [...] some every day Dry mouth - please tile picker some OTC spray to help Please [...] or you can send a message through [employer]. You can also now schedule and select appointments through [employer]. Mariola Montes PA-C documented in this encounter [facility] 01-14-2024 History of Present illness Narrative [...] the amplitude decrements starting after the 1st bbiv-qyn-kpswc sequence. Arm Movements Right 1-Slight. a) the [...] Parkinson's Disease since 2014. She presents to [facility] spring for care after many years of [...] some every day Dry mouth - please tile picker some OTC spray to help Please come back to see me February 21 at 3:00PM Interested in clinical research? Not currently Updated Movement Disorders Medication Schedule: Medications breakfast lunch bedtime ropinerole 0.25mg 1 azilect 1mg 1 sinemet CR 25/100mg 1 1 1 amantadine 100 mg 1 Return at or around: 02/14/24 Level of service : 27184 + 2 units 64339 ( > 55 min, [id number] for each 15 min > 40). Time spent 75 min on the day of service, which included preparing to see the patient, hnon-gu-cwuk patient care, completing clinical documentation, obtaining and/or [...] Mariola Montes PA-C documented in this encounter [facility] 01-14-2024 Note HNO ID: [id number] Author: MARIOLA MONTES PA-C Service: ? Author Type: Physician Extended Day Teacher Type: Progress Notes Filed: 01/14/2024 20:44 Note [...] the amplitude decrement (more content not included)... [facility] 12-20-2023 Note Cardiology Clinic No te [...] without perforation, COPD (chronic obstructive pulmonary disease) ([facility]), Emphysema lung ([facility]), Hiatal hernia (05/2023), Hyperlipidemia, Hypertension, Parkinson disease ([facility]), Renal stones, TIA (transient ischemic attack) (06/2023), [...] AND 5PM* cholecalciferol (Vitamin D-3) 50 MCG (1999 [place]) [...] rubs, No gallops. (more content not included)... [facility] 11-27-2023 Note Subjective Patient ID: Judith Khan is a 78 y.o. female who presents for Post-op (Judith is here today for a post op visit for an incisional hernia, [facility] ). HPI 78 years [...] past 36 hour(s)). No follow-ups on file. [facility] 11-08-2023 Note Addended by: Madison VALENTE on: 11/08/2023 03:27 PM Modules accepted: Orders [facility] 11-08-2023 Miscellaneous Notes Addended by: DAVID [...] 24 and first week medication helped dyskinesia. [phone] 09/13/23 DARRYL w/Dr. Valente documented in this encounter [facility] 11-08-2023 Note Addended by: DULCE JONES on: 11/08/2023 02:48 PM Modules accepted: Orders [facility] 11-08-2023 Telephone encounter Note Spoke with Jaimee. Instructed her to increase the Amantadine to 100mg BID (to be taken with the first 2 daily doses of Sinemet). Jaimee verbalized understanding and is in agreement with POC. [facility] 11-08-2023 Telephone encounter Note Ok, if no side effects can she please increase to 100mg in morning and 100mg at noon? I will update the prescription. [facility] 11-08-2023 Telephone encounter Note Spoke with Jaimee. Reports that pt is experiencing right sided dyskinesia (arm/shoulder). Pt has been taking 100mg Amantadine daily. She initially had relief from the dyskinesia but now they have returned. [facility] 11-08-2023 Telephone encounter Note Jaimee (pt' granddaughter) called to report this week pt's back to experiencing jerking movement. Pt started Amantadine 100 mg week of October 24 and first week medication helped dyskinesia. [phone] 09/13/23 DARRYL w/Dr. Valente [facility] 10-17-2023 Note HNO ID: [id number] Author: NEELIMA ORTEGA APRN.BACKSIDE GRINDER Service: ? Author Type: Nurse Practitioner Type: [...] 100 mg 1 Level of service : 87066 (20-29 min). Time spent 25 min on [...] with any questions. Sincerely, Neelima Ortega APRN.HUGH [facility] 10-17-2023 Note Addended by: Gerardo ORTEGA on: 10/17/2023 05:29 PM Modules accepted: Orders [facility] 10-17-2023 History of Present illness Narrative [...] 100 mg 1 Level of service : 77722 (20-29 min). Time spent 25 min on [...] Neelima Ortega APRN.HUGH documented in this encounter [facility] 10-17-2023 Miscellaneous Notes Addended by: NEELIMA [...] still having this issue. Kathie Calvillo (Daughter) [phone] (Home Phone) documented in this encounter [facility] 10-17-2023 Telephone encounter Note Spoke with pt. 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 She is agreeable to discussing in more detail at next office visit. [facility] 10-17-2023 Miscellaneous Notes Spoke with pt. [...] use and would like a return call. [phone] documented in this encounter [facility] 10-17-2023 Telephone encounter Note Dear Team, Can we please let her know that the MRI of the spine showed arthritis-related degenerative changes to the spine, but not serious. We can discuss at her next in person visit and show her the images then. Thanks, -David [facility] 10-17-2023 Telephone encounter Note Judith phoned for results of MRI done on 10/06. She does not use and would like a return call. [phone] [facility] 10-17-2023 Telephone encounter Note Dear Neelima, If she lives alone, I'd prefer the zonisamide. If she lives with someone who can monitor for the possible cognitive side effects of amantadine, I'd prefer amantadine. Thanks! -David [facility] 10-09-2023 Telephone encounter Note Patients daughter calling to say there was medication discussed during last OV for dyskinesia. They want to know what it was and if it can be prescribed because she's still having this issue. Kathie Calvillo (Daughter) [phone] (Home Phone) [facility] 10-07-2023 History of Present illness Narrative [...] PATIENT PRESENTS WITH AN IMPLANTABLE OR ATTACHED CIGARETTE MACHINES MECHANIC: No RADIOLOGY DEPARTMENT: MR; Exam(s) Completed: Spine: Cervical spine, Thoracic spine, and Lumbar spine PERIPHERAL IV DATA: Not applicable SIGNED BY: RT Alec(Yajaira) October 07, 2023 5:53 PM documented in this encounter [facility] 10-07-2023 Note HNO ID: [id number] Author: MYA JENNINGS RT(R) Service: Radiology Author Type: Technologist Type: Progress [...] PATIENT PRESENTS WITH AN IMPLANTABLE OR ATTACHED CIGARETTE MACHINES MECHANIC: No RADIOLOGY DEPARTMENT: MR; Exam(s) Completed: Spine: Cervical spine, Thoracic spine, and Lumbar spine PERIPHERAL IV DATA: Not applicable SIGNED BY: RT Alec(R) October 07, 2023 5:53 PM [facility] 09-26-2023 Note Subjective Patient ID: Judith [...] past 36 hour(s)). No follow-ups on file. [facility] 09-26-2023 Note Subjective Patient ID: Judith Khan [...] up, unless patient desires Gamaliel Jarvis, MS3 [facility] 09/26/23 [facility] 09-18-2023 Note 09/18/23 1216 Home Oxygen Therapy Evaluation Pulse Oximetry on room air at Rest 88 Pulse Ox on O2 with nasal cannula while at rest 93 (on 3lpm via nasal cannula) Pulse Ox on O2 with nasal cannula while walking 92 (on 3lpm via nasal cannula while walking) Patient Qualification for home oxygen Qualifies $ Pulse Oximetry Multiple (home oxygen eval) [facility] 09-18-2023 Note ---- Attestation signed by Verena Sheehan MD at 09/20/2023 10:36 AM Attending Physician Statement I have discussed the case, including pertinent history and exam findings with Dr. Serrano, residential support specialist and have personally seen the patient. I agree with the assessment, plan and orders as documented. [phone] pager [phone] phone ---- [facility] General Surgery DAILY PROGRESS NOTE Subjective Overnight [...] Resident, PGY-3 I can be reached via [id number] [facility] 09-18-2023 Note Physical Therapy Physical Therapy Evaluation [...] (CMS/HCC) Kidney disease Hiatal hernia Parkinson's disease ([facility]) Incisional hernia, without obstruction or gangrene Postoperative incisional hernia Past Medical History: Diagnosis Date Chronic gastric ulcer without hemorrhage and without perforation COPD (chronic obstructive pulmonary disease) ([facility]) Emphysema lung ([facility]) HISTORY OF Hiatal hernia 05/2023 Hyperlipidemia Hypertension Parkinson disease ([facility]) Renal stones TIA (transient ischemic attack) 06/2023 [...] Level of Function Prior Function Level of [place]: Independent with ADLs and functional transfers, Needs assistance with homemaking Prior Functional Mobility: Independent with rolling walker Receives Help From: Family ADL Assistance: Independent (assist for socks) Homemaking Assistance: Needs assistance Driving: Total Prior Function Comments: Currently getting [employer] therapies in [place]: COURTESY DRIVER/OT/PT Vision Basic Assessment Vision - Basic Assessment [...] Distant supervision Static (more content not included)... [facility] 09-18-2023 Note Occupational Therapy Occupational Therapy Evaluation [...] (CMS/HCC) Kidney disease Hiatal hernia Parkinson's disease ([facility]) Incisional hernia, without obstruction or gangrene Postoperative incisional hernia Past Medical History: Diagnosis Date Chronic gastric ulcer without hemorrhage and without perforation COPD (chronic obstructive pulmonary disease) ([facility]/HCC) Emphysema lung ([facility]) HISTORY OF Hiatal hernia 05/2023 Hyperlipidemia Hypertension Parkinson disease ([facility]) Renal stones TIA (transient ischemic attack) 06/2023 [...] Level of Function Prior Function Level of [place]: Independent with ADLs and functional transfers, Needs [...] Eating meals?: None (Independent) Total Score OT [facility]: 21 Assessment/Plan OT Assessment OT Impairments: Decreased ADL status, Decreased endurance, Decreased functional mobility OT Assessment/ALETHEA Summary: (needs skilled OT due to weakness [...] Therapy) Active Probl (more content not included)... [facility] 09-18-2023 Note 09/18/23 1001 Admission Assessment Questions [...] No Does the patient have a case reviewer assigned to them through their insurance? No [...] to send link and activate MyChart? Yes [facility] 09-18-2023 Note [facility] General Surgery DAILY PROGRESS NOTE Subjective Overnight [...] of care per primary Will follow David Conner MS3 General Surgery Resident, PGY- [phone] I can be reached via [id number] [facility] 09-17-2023 Note Patient: Judith stoner Procedure Summary Date: 09/17/23 Room / Location: [facility] OPERATING ROOM 13 / [facility] Operating Room Anesthesia Start: 103 Anesthesia Stop: 1436 Procedure: DAVINCI INCISIONAL HERNIA [...] Resp 12 09/17/23 1530 SpO2 93 % 04/08/24 1530 Vitals shown include unvalidated device data. [...] slow to emerge. No notable events documented. [facility] 09-17-2023 Note Patient: Judith stoner Procedure Summary Date: 09/17/23 Room / Location: [facility] OPERATING ROOM 13 / [facility] Operating Room Anesthesia Start: 1039 Anesthesia Stop: [...] observation Transport: uneventful Patient condition is: stable [facility] 09-17-2023 Note Airway Date/Time: 09/17/2023 10:53 AM Urgency: elective General Information and Staff Patient location during procedure: OR Anesthesiologist: Jon Sunshine MD Resident/LEADITE MAN/CAA: ABDIFATAH Patton Performed: resident/LEADITE MAN/CAA Indications and Patient Condition Indications for airway [...] 1 Number of other approaches attempted: 0 [facility] 09-17-2023 Note Patient: Judith stoner Procedure Information Date/Time: 09/17/23 1100 Procedure: REPAIR, HERNIA, INCISIONAL, DAVINCI - DaVinci Location: [facility] OPERATING ROOM 13 / [facility] Operating Room Surgeons: Verena Sheehan MD Relevant [...] Plan discussed with CAA. Additional Equipment Requests [facility] 09-13-2023 Instructions David Valente MD - 09/13/2023 [...] > left sensory loss. Continue PT, OT, COURTESY DRIVER Follow up in 1 month with [facility]. Patient's perception of importance for healthcare provider to let them know of research trials for which they may be eligible? Not at all important Return at or around: 10/13/23 If there are any concerns before your next visit, please call or you can send a message through [employer]. You can also now schedule and select appointments through [employer]. David Valente MD documented in this encounter [facility] 09-13-2023 History of Present illness Narrative [...] Row Office Visit from 09/13/2023 in [facility] T Score 39.8 Global [...] Suprapatellar present. Crossed adductor absent. Coordination Right: Jfzx-bp-gjmp normal.Left: Xiqr-jm-dhoc normal. See UPDRS. Gait Casual gait: Hesitant [...] Spine, concern for right sided lumbar radiculopathy [facility] (MRIs ordered at [facility], with radiology to administer anxiolytics) Neuropathy labwork In future, consider EMG right leg to work up right > left sensory loss. Continue PT, OT, COURTESY DRIVER Follow up in 1 month with [facility]. Patient's perception of importance for healthcare provider to let them know of research trials for which they may be eligible? Not at all important Updated Parkinson's Medication Schedule: Medications breakfast lunch bedtime ropinerole 0.25mg 1 azilect 1mg 1 sinemet 25/100mg 1 1 1 Level of service : 78048 + 1 units 03705 ( > 75 min, 0R35000 for each 15 min > 60 min). Time spent 80 min on the day of service, which included preparing to see the patient, lvig-yx-aduy patient care, completing clinical documentation, obtaining and/or [...] David Valente MD documented in this encounter [facility] 09-13-2023 Note HNO ID: [id number] Author: DAVID VALENTE MD Service: ? Author [...] Row Office Visit from 09/13/2023 in [facility] T Score 39.8 Global [...] 5pm.. rOPINIRole (REQUIP (more content not included)... [facility] 09-12-[address] Haresh nicole the Pantoprazole. [facility] 08-27-2023 Note Pre op Cardiovascula r risk stratification RCRI: 1 points Class II Risk 6.0 % 30-day risk of , AL, or cardiac arrest From a cardiology perspective pt may proceed with planned hernia surgery, she is low risk for a moderate- high risk abdominal surgery. Please monitor hemodynamics and prevent any major fluid shifts please. Mila Schultz [facility] Cardiology Available 7a-5pm via [employer] Pager [phone] 05/2022 Abnormal stress with EKG changes but no perfusion defects as per report. No cardiac complaints TTE 06/01/23 v [facility] 08-22-2023 Note Subjective Patient ID: Judith Khan [...] time. (ESOPHAGOGASTRODUODENOSCOPY) Operative Note Date: 08/13/2023 Location: [facility] OR Name: Judith Khan, : 1945, Diagnosis Pre-op Diagnosis * Hiatal hernia [K44.9] Post-op Diagnosis * Chronic gastric ulcer without hemorrhage and without perforation [K25.7] Procedures EGD (ESOPHAGOGASTRODUODENOSCOPY) 56230 - GA ESOPHAGOGASTRODUODENOSCOPY TRANSORAL DIAGNOSTIC Surgeons * Verena Sheehan - Primary Procedure Summary Anesthesia: Monitor Anesthesia Care ASA: III Estimated Blood Loss: Minimal Total IV Fluids: 500 mL Drains: * None in log * Staff: School Bus Driver/Mechanic: Jian Kat RN Scrub Person: Eva Zambrano [...] NOTE Patient: Judith Khan : 1945 Facility: [facility] Referring/PCP: Kavon Sams MD Procedure: Esophagogastroduodenoscopy --diagnostic [...] 1. -Follow up with me. 2. -PPIs [phone] pager [phone] Assessment/Plan Incisional hernia Gastric ulcer Robotic incisional hernia repair with mesh Cardiac clearance PPIs No diagnosis found. No orders of the defined types were placed in this encounter. No results found for this or any previous visit (from the past 36 hour(s)). No follow-ups on file. [facility] 08-13-2023 Note Patient: Judith stoner Procedure Summary Date: 08/13/23 Room / Location: [facility] OPERATING ROOM / [facility] Operating Room Anesthesia Start: 731 Anesthesia Stop: [...] per anesthesia protocol. No notable events documented. [facility] 08-13-2023 Note [facility] General Surgery HISTORY AND PHYSICAL Reason for Admission: EGD History of Present Illness: Judith Khan is a 78 y.o. female with a hiatal hernia. Here today for elective EGD. No changes since prior exam no new acute concerns. Past Medical History: Diagnosis Date COPD (chronic obstructive pulmonary disease) ([facility]) Emphysema lung ([facility]) HISTORY OF Hiatal hernia 05/2023 Hyperlipidemia Hypertension [...] PROTIME Imaging: XR chest 1 view Narrative: [facility] Department of Radiology [address] [place] [id number] Patient Name: JUDITH KHAN : 1945 Sex: F Age: Race: White^White Pt. Location: [address] [place] [address] Patient Status: I Ordered Date: 08/15/2017 7:05:00 AM Completed Date: 08/15/2017 07:54 AM Requesting Provider: JOSH ESCUDERO Attending Provider: AELXANDER OLSON Report Copy To: Signs & Symptoms: O2 Desaturation History: Patient history not available Comments: R/O Effusion Exam: PORTABLE CHEST 1 VIEW PORTABLE CHEST 1 VIEW 08/15/2017 7:54 AM EST SIGNS AND SYMPTOMS: O2 Desaturation TECHNOLOGIST COMMENTS: SOB Q (more content not included)... [facility] 08-13-2023 Note Patient: Judith stoner Procedure Information Date/Time: 08/13/23729 Procedure: EGD (ESOPHAGOGASTRODUODENOSCOPY) Location: [facility] OPERATING ROOM 01 / [facility] Operating Room Surgeons: Verena Sheehan MD Relevant [...] with attending and resident. 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 Do not wear perfume, make-up, nail south african, or lotions on the day of your [...] need to make any changes, please call [phone]. Notify your surgeon if you develop any illness such as a cold, cough, fever, sore throat or vomiting between now and your surgery. Thank you for entrusting us with your care. [facility] Surgical Services Team [facility] 08-07-2023 Note Subjective Patient ID: Judith Khan [...] past 36 hour(s)). No follow-ups on file. [facility] 07-16-2023 Hospital Discharge instructions Patient Education 07/16/2023 [...] Consider working with a physical therapist or physical trainer who can develop an exercise plan to help you gain muscle strength. General instructions Take xcqx-xoe-enazwyj and prescription medicines only as told by [...] provider. Document Revised: 04/30/2022 Document Reviewed: 04/30/2022 Olery Patient Education 2022 ethology. Follow Up Care 07/16/2023 11:34:57 With:Kavon Sams Address: [address] [place] [phone] Business (1) When:07/19/2023 15:32:04 [facility] 07-16-2023 Evaluation + Plan note Extrac ej from: Title:ED Note Author:Leighton Fernandes PA-C te:07/16/23 Weakness (R53.1: Weakness) Diagnostic Tests Pending * Urine Culture 07/16/23 [facility]01-28-2024 NoteAdmission and Discharge Information Admitting Physician - Mela Espinal MD [...] JOANNA Kauffman Within 1 to 2 weeks [place] [address]- Additional Instructions: Patient Education Weakness, Pisw-zu-Rulr Urinary Tract Infection, [facility] HospitalComment on above:Result Comment: Electronically Signed By: MATTHEW HERRERA, Haile\.br\Date and Time Signed: 07/08/23 16:[id number] NoteHypertension is stable and well controlled Continue all meds as prescribed- norvasc, lisinopril- hydrochlorothiazide, metoprololMain [facility]01[facility]26-2024 NoteHiatal hernia with compression on Lt atrium noted on TTE Referral to general surgery orderedUnOhioHealth Nelsonville Health Center01-26-2024 NotePatient here for 6 mo follow up fatigue, hypertension, and hyperlipidemia. Metoprolol was put on hold at last apt in Jan 2023 to see if fatigue improved. A few weeks later she was admitted to [facility] for chest pain. Had another echo [...] tremors. All other systems reviewed and are negative.[facility] 07-06-2023 NoteUTP CARDIOLOGY PROGRESS NOTE HPI: Judith Khan is a 78 y.o. female here for review echocardiogram Patient here for 6 mo follow up fatigue, hypertension, and hyperlipidemia. Metoprolol was put on hold at last apt in Jan 2023 to see if fatigue improved. A few weeks later she was admitted to [facility] for chest pain. Had another echo [...] Plt Count 355 (150-450) 10^3/uL Emergency Department [id number] [facility] 5 Patient name: JUDITH KHAN MPV [...] Amer) >60 (>=60) Est (more content not included)...[facility]01-20-2024 NoteMicrobiology PROCEDURE: Blood Culture Charcoal [R1] SOURCE: Blood BODY SITE: Arm L COLLECTED DATE/TIME: 06/23/2023 01:59 EST RECEIVED DATE/TIME: 06/23/2023 02:53 EST START DATE/TIME: 06/23/2023 02:53 EST FREE TEXT SOURCE: Thea Stacy, Augie Sidhu M.D., Astrit H FINAL REPORTS Final Report [] Verified Date/Time: 06/30/2023 07:00 EST No growth at 7 days. Performing Locations R1: This test was performed at: [facility], [address] [place] [address], [id number] [place] [address], [address] [place], [place] [address]Comment on above:Performed By: #### [id number] ####[facility] [address] [place], [place] [id number] NoteMicrobiology PROCEDURE: Blood Culture Charcoal [R1] SOURCE: Blood BODY SITE: Arm R COLLECTED DATE/TIME: 06/23/2023 02:56 EST RECEIVED DATE/TIME: 06/23/2023 05:50 EST START DATE/TIME: 06/23/2023 05:50 EST FREE TEXT SOURCE: rt nathaniel Sidhu M.D., Augie Sidhu M.D., Astrit H FINAL REPORTS Final Report [] Verified Date/Time: 06/30/2023 07:00 EST No growth at 7 days. Performing Locations R1: This test was performed at: [facility], [address] [place] [address], [address] [place] [address], [address] [place], [place] [address]Comment on above:Performed By: #### [id number], [id number] #### [facility] [address] [place] [address] [id number] NoteChief Complaint weakness Reason for Consultation Right sided weakness History of Present Illness 78-year-old woman with Parkinson's who follows with Dr. Rao and Yamilka Gill in the [facility]. She had a unilateral upper extremity [...] says she had an open MRI in [place] within the past few months which she [...] but reportedly she has MRI images in [place] within the past few months that did [...] List/Past Medical History On (more content not included)...[facility] HospitalComment on above: Result Comment: Electronically Signed By: Tony Fuentes DO\Date and Time Signed: 06/24/23 09:29 [id number] Hospital Discharge instructions Patient Education 06/23/2023 16:31:59 Weakness, Dwco-be-Bzut Weakness Weakness is a lack of strength. [...] about working with a physical therapist or physical trainer to help you get stronger. General instructions Take rjrt-zkb-tuaecmt and prescription medicines only as told by [...] provider. Document Revised: 04/30/2022 Document Reviewed: 04/30/2022 Olery Patient Education 2022 ethology. 06/23/2023 16:31:55 Urinary Tract Infection, Adult Urinary [...] Treatment for this condition includes: Antibiotic medicine. Milg-mtg-lxyqdch medicines to treat discomfort. Drinking enough water [...] Follow these instructions at home: Medicines Take mwcc-ovx-okdakoo and prescription medicines only as told by [...] provider. Document Revised: 01/07/2021 Document Reviewed: 01/07/2021 Olery Patient Education 2022 ethology. Follow Up Care 06/23/2023 01:35:45 With:Ramiro Louise MD, [facility]U Address: [place] [address] [place] [address]- When:1 to 2 weeks [facility]01-13-2024 NoteChief Complaint states went to the bathroom [...] out of bed to go the bathroom. [place] weak all over and just felt like [...] Magnesium: 1.8 mg/dL (06/23/23 (more content not included)...[facility] HospitalComment on above:Result Comment: Electronically Signed By: Haile CASTRO MD\.br\Date and Time Signed: 06/23/23 15:[id number] NoteCRM entered the room to discuss dc planning. PCP, DME and insurance discussed. Patient is alert andinvolved in plan of care. Contact information provided and whiteboard updated. PT rec OPPT, pt is agreeable. Medicare Rights form discussed. Copy provided. Pt's family will transport. Ant dc 06/23 or 06/24. CRM to follow.[facility] HospitalComment on above:Result Comment: Electronically Signed By: Haydee Melendez.br\Date and Time Signed: 06/23/23 14:05 [id number] Evaluation + Plan noteExtracted from: Title:Consult Note [...] but reportedly she has MRI images in [place] within the past few months that did [...] Reports she just had an MRI in [facility]. Consult Neurology PT Eval ordered 2. [...] Blood Culture Charcoal CBC w/ Auto Diff [place] Stroke Scale Communication Order Physician to Nursing [...] Culture Charcoal 06/23/23 * Urine Culture 06/23/23 [facility]01-13-2024 NotePT Evaluation done this date. Pt. with on AM-PAC this date. She feels she is at her baseline at this time, Recommend she uses her FWW at home as needed. She may benefit from outpatient PT for her Parkinson's. No further acute PT needs.[facility] 01-12-2023 NoteContinue statinUnOhioHealth Nelsonville Health Center08-04-2023 Note Hypertension is elevated in office most likely r/t white coat syndrome States b/p at home is typically 120's/70'[facility] 01-12-2023 NoteWill have pt hold metoprolol and see if her fatigue improves Continue to monitor b/p at home and call office for b/p increase greater than 130/80 or for any concerns.[facility]08-04-2023 Note Patient here for 6 mo follow [...] tremors. All other systems reviewed and are negative.[facility] 01-12-2023 NoteUTP CARDIOLOGY PROGRESS NOTE HPI: Judith [...] statin RTC 3-6 months or earlier if neededMain Campus Medical CenterEvaluation noteNo assessment information availableKettering Health Troy Work Phone: Evaluation note* Diagnosis Hyperreflexia- Primary [...] changes Memory loss [facility] Diagnosis Spinal stenosis of cervical region Spinal stenosis in cervical region [facility] Diagnosis Abnormal posture [facility] Diagnosis Spinal stenosis of lumbar region with neurogenic claudication Spinal stenosis, lumbar region, with neurogenic claudication documented [facility]* Diagnosis Parkinson's disease with dyskinesia and fluctuating manifestations (HCC)- Primary [facility] Diagnosis Parkinson's disease with dyskinesia and fluctuating manifestations (HCC)- Primary [facility] Diagnosis Parkinson's disease with dyskinesia and fluctuating manifestations (HCC) [facility] Diagnosis Parkinson's disease with dyskinesia and fluctuating manifestations (HCC) [facility] Diagnosis Parkinson's disease with dyskinesia and fluctuating manifestations (HCC)- Primary [facility] Diagnosis Parkinson's disease with dyskinesia and fluctuating manifestations (HCC)- Primary [facility] Diagnosis Parkinson's disease with dyskinesia and fluctuating manifestations (HCC) [facility] Diagnosis Parkinson's disease, unspecified whether dyskinesia present, unspecified whether manifestations fluctuate (CMS/HCC)- Primary 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 RLS (restless legs syndrome) Restless legs syndrome (RLS) Cerebral infarction, chronic Transient ischemic attack (TIA), and cerebral infarction without residual deficits Bilateral carotid artery stenosis Occlusion and stenosis of carotid artery without mention of cerebral infarction Cerebral infarction, chronic Transient ischemic attack (TIA), and cerebral infarction without residual deficits Bilateral carotid artery stenosis Occlusion and stenosis of carotid artery without mention of cerebral infarction [facility] Narrative No data available for this section [facility] No data available for this section [facility] Summary Purpose Family History No Family History Records FoundNo Family History Records FoundNo Family History Records Found No data available for this section No Family History Records FoundNo Family History Records FoundNo Family History Records Found No data available for this section No Family History Records FoundNo Family History Records FoundNo Family History Records FoundNo Family History Records Found Advance Directives Advance Directive Response Recorded Date/ Time Advance Directives No November 12 9 1:56pm Chief Complaint and Reason for Visit Chief Complaint G24.9 R27.0 Reason for Referral Specialty Diagnoses / Procedures Referred By Reyna medina Referred To Contact Diagnoses Parkinson's disease with dyskinesia and fluctuating manifestations (HCC) Procedures PROVIDER ORDERED FOLLOW UP OFFICE/OUTPATIENT [facility] 60 MINUTES Mariola Montes PA-C [address] [place] [address] Referral ID Status Reason Start Date Expiration Date Visits Requested Visits Authorized [id number] Authorized PCP Requested Referral 02/14/2024 01/13/2025 1 1 Specialty Diagnoses / Procedures Referred By Contac t Referred To Contact Diagnoses Parkinson's disease, unspecified whether dyskinesia present, unspecified whether manifestations fluctuate (HCC) Procedures PROVIDER ORDERED FOLLOW UP OFFICE/OUTPATIENT [facility] 60 MINUTES David Valente MD [address] [place] [address] Referral ID Status Reason Start Date Expiration Date Visits Requested Visits Authorized [id number] Authorized PCP Requested Referral 10/13/2023 09/12/2024 1 1 Specialty Diagnoses / Procedures Referred By Contac t Referred To Contact MR IMAGING Diagnoses Spinal stenosis of lumbar region with neurogenic claudication Procedures MRI LUMBAR SPINE WO IVCON MRI SPINAL CANAL LUMBAR W/O CONTRAST MATERIAL David Valente MD [address] [place] [address] Mr Imaging [place] [address] Referral ID Status Reason Start Date Expiration Date Visits Requested Visits Authorized [id number] Authorized Auto-Generat ed Referral 09/13/2023 10/12/2024 1 1 Specialty Diagnoses / Procedures Referred By Contac t Referred To Contact MR IMAGING Diagnoses Abnormal posture Procedures MRI THORACIC SPINE WO IVCON MRI SPINAL CANAL THORACIC W/O CONTRAST David Andrea MD [address] [place] [address] Mr Imaging [place] [address] Referral ID Status Reason Start Date Expiration Date Visits Requested Visits Authorized [id number] Authorized Auto-Generat ed Referral 09/13/2023 10/12/2024 1 1 Specialty Diagnoses / Procedures Referred By Contac t Referred To Contact MR IMAGING Diagnoses Spinal stenosis of cervical region Procedures MRI CERVICAL SPINE WO IVCON MRI SPINAL CANAL CERVICAL W/O CONTRAST David Andrea MD [address] [place] [address] Mr Imaging [id number] Referral ID Status Reason Start Date Expiration Date Visits Requested Visits Authorized [id number] Authorized Auto-Generat ed Referral 09/13/2023 10/12/2024 1 1 Additional Source Comments INFORMATION SOURCE (unrecogn ized section and content) DATE CREATED AUTHOR 11/30/2017 [facility] DATE CREATED AUTHOR AUTHOR'S ORGANIZ ATION 10/13/2022 [facility] DATE CREATED AUTHOR AUTHOR'S ORGANIZ ATION 07/19/2023 [facility] DATE CREATED AUTHOR AUTHOR'S ORGANIZ ATION 08/21/2023 [facility] DATE CREATED AUTHOR AUTHOR'S ORGANIZ ATION 10/19/2023 [facility] DATE CREATED AUTHOR AUTHOR'S ORGANIZ ATION 12/02/2023 [facility] DATE CREATED AUTHOR AUTHOR'S ORGANIZ ATION 12/26/2023 [facility] DATE CREATED AUTHOR AUTHOR'S ORGANIZ ATION 02/27/2024 [facility] DATE CREATED AUTHOR AUTHOR'S ORGANIZ ATION 04/25/2024 [facility] EPIC Care Teams (unrecognized sec tion and content) Team Status: Active Member Role Status Dates Kavon Sams MD Primary Care Provider Active Team Status: Inactive Member Role Status Dates Kavon Sams MD Primary Care Provider Active Giovanni Gill NP-C Attending Provider Active Roofer Assistant Relationship Specialty Start Date End Date Kavon Sams Md PCP - General Family Medicine 03/23/20 Kavon Sams MD Physician Family Medicine 02/20/20 Roofer Assistant Relationship Specialty Start Date End Date Kavon Sams Md PCP - General Family Medicine 03/23/20 Kavon Sams MD Physician Family Medicine 02/20/20 Roofer Assistant Relationship Specialty Start Date End Date Kavon Sams Md PCP - General Family Medicine 03/23/20 Kavon Sams MD Physician Family Medicine 02/20/20 Roofer Assistant Relationship Specialty Start Date End Date Kavon Sams Md PCP - General Family Medicine 03/23/20 Kavon Sams MD Physician Family Medicine 02/20/20 Roofer Assistant Relationship Specialty Start Date End Date Kavon Sams Md PCP - General Family Medicine 03/23/20 Kavon Sams MD Physician Family Medicine 02/20/20 Roofer Assistant Relationship Specialty Start Date End Date Kavon Sams Md PCP - General Family Medicine 03/23/20 Kavon Sams MD Physician Family Medicine 02/20/20 Roofer Assistant Relationship Specialty Start Date End Date Kavon Sams Md PCP - General Family Medicine 03/23/20 Kavon Sams MD Physician Family Medicine 02/20/20 Roofer Assistant Relationship Specialty Start Date End Date Kavon Sams Md PCP - General Family Medicine 03/23/20 Kavon Sams MD Physician Family Medicine 02/20/20 Roofer Assistant Relationship Specialty Start Date End Date Kavon Sams Md PCP - General Family Medicine 03/23/20 Kavon Sams MD Physician Family Medicine 02/20/20 Roofer Assistant Relationship Specialty Start Date End Date Kavon Sams Md PCP - General Family Medicine 03/23/20 Kavon Sams MD Physician Family Medicine 02/20/20 Roofer Assistant Relationship Specialty Start Date End Date Kavon Sams Md PCP - General Family Medicine 03/23/20 Kavon Sams MD Physician Family Medicine 02/20/20 Roofer Assistant Relationship Specialty Start Date End Date Kavon Sams MD [address] [place] [address] PCP - General Family Medicine 08/15/23 Roofer Assistant Relationship Specialty Start Date End Date Kavon Sams MD [address] [place] [address] PCP - General Family Medicine 08/15/23 Goals (unrecognized section and content) Goals may [...] or prosecute any alcohol or drug abuse patient.[facility] HospitalIn the event this information is protected by the Federal Confidentiality of Alcohol and Drug Abuse Patient Records regulations: The Federal rules restrict any use of the information to criminally investigate or prosecute any alcohol or drug abuse patient.[facility] HospitalIn the event this information is protected by the Federal Confidentiality of Alcohol and Drug Abuse Patient Records regulations: The Federal rules restrict any use of the information to criminally investigate or prosecute any alcohol or drug abuse patient.[facility] HospitalIn the event this information is protected by the Federal Confidentiality of Alcohol and Drug Abuse Patient Records regulations: The Federal rules restrict any use of the information to criminally investigate or prosecute any alcohol or drug abuse patient.[facility] HospitalIn the event this information is protected by the Federal Confidentiality of Alcohol and Drug Abuse Patient Records regulations: The Federal rules restrict any use of the information to criminally investigate or prosecute any alcohol or drug abuse patient.[facility] HospitalIn the event this information is protected by the Federal Confidentiality of Alcohol and Drug Abuse Patient Records regulations: The Federal rules restrict any use of the information to criminally investigate or prosecute any alcohol or drug abuse patient.[facility] HospitalIn the event this information is protected by the Federal Confidentiality of Alcohol and Drug Abuse Patient Records regulations: The Federal rules restrict any use of the information to criminally investigate or prosecute any alcohol or drug abuse patient.[facility] HospitalIn the event this information is protected by the Federal Confidentiality of Alcohol and Drug Abuse Patient Records regulations: The Federal rules restrict any use of the information to criminally investigate or prosecute any alcohol or drug abuse patient.[facility] HospitalIn the event this information is protected by the Federal Confidentiality of Alcohol and Drug Abuse Patient Records regulations: The Federal rules restrict any use of the information to criminally investigate or prosecute any alcohol or drug abuse patient.[facility] HospitalIn the event this information is protected by the Federal Confidentiality of Alcohol and Drug Abuse Patient Records regulations: The Federal rules restrict any use of the information to criminally investigate or prosecute any alcohol or drug abuse patient.[facility] HospitalIn the event this information is protected by the Federal Confidentiality of Alcohol and Drug Abuse Patient Records regulations: The Federal rules restrict any use of the information to criminally investigate or prosecute any alcohol or drug abuse patient.[facility] HospitalIn the event this information is protected by the Federal Confidentiality of Alcohol and Drug Abuse Patient Records regulations: The Federal rules restrict any use of the information to criminally investigate or prosecute any alcohol or drug abuse patient.[facility] Reason for Visit (unrecogniz ed section and content) Reason Comments New Patient Reason Comments Radiology MRI Specialty Diagnoses / Procedures Referred By Contac t Referred To Contact MR IMAGING Diagnoses Spinal stenosis of cervical region Procedures MRI CERVICAL SPINE WO IVCON MRI SPINAL CANAL CERVICAL W/O CONTRAST David Andrea MD [address] [place], [place] [address] [place] [address] [place] [address] Referral ID Status Reason Start Date Expiration Date V isits Requested Visits Authorized [id number] Closed Auto-Generate d Referral 09/13/2023 10/12/2024 1 1 Specialty Diagnoses / Procedures Referred By Contac t Referred To Contact MR IMAGING Diagnoses Abnormal posture Procedures MRI THORACIC SPINE WO IVCON MRI SPINAL CANAL THORACIC W/O CONTRAST MATRL David Valente MD [address] [place] [address] Mr Imaging [place] [address] Referral ID Status Reason Start Date Expiration Date V isits Requested Visits Authorized [id number] Closed Auto-Generate d Referral 09/13/2023 10/12/2024 1 1 Specialty Diagnoses / Procedures Referred By Contac t Referred To Contact MR IMAGING Diagnoses Spinal stenosis of lumbar region with neurogenic claudication Procedures MRI LUMBAR SPINE WO IVCON MRI SPINAL CANAL LUMBAR W/O CONTRAST MATERIAL David Valente MD [address] [place] [address] Mr Imaging [place] [address] Referral ID Status Reason Start Date Expiration Date V isits Requested Visits Authorized [id number] Closed Auto-Generate d Referral 09/13/2023 10/12/2024 1 1 Reason Comments Results MRI Reason Comments Parkinson's Disease Specialty Diagnoses / Procedures Referred By Contac t Referred To Contact Diagnoses Parkinson's disease, unspecified whether dyskinesia present, unspecified whether manifestations fluctuate (HCC) Procedures PROVIDER ORDERED FOLLOW UP OFFICE/OUTPATIENT NEW [facility] 60 MINUTES David Valente MD [address] [place] [address] Referral ID Status Reason Start Date Expiration Date Visits Requested Visits Authorized [id number] Authorized PCP Requested Referral 10/13/2023 09/12/2024 1 1 Reason Comments Med Change Request Reason Comments Medication Update/Amantadine Reason Comments Established Patient Follow Up Reason Comments Established Patient Follow up Specialty Diagnoses / Procedures Referred By Contac t Referred To Contact Diagnoses Parkinson's disease with dyskinesia and fluctuating manifestations (HCC) Procedures PROVIDER ORDERED FOLLOW UP OFFICE/OUTPATIENT [facility] 60 MINUTES Mariola Montes PA-C [address] [place] [address] Referral ID Status Reason Start Date Expiration Date V isits Requested Visits Authorized [id number] Closed PCP Requested Referral 02/14/2024 01/13/2025 1 1 Reason Comments Refill Request Reason Comments Parkinson's Disease Insomnia Carpal Tunnel FOR RECORDS PERTAINING TO PATIENTS WHO ARE [...] BE BASED ON THE PRIMARY CLINICAL RECORDS. [employer] provides no warranty or guarantee of the accuracy or completeness of information in this document.
[2024-05-01 07:28] LABS: Chol HDL Ratio 2.1; Cholesterol 180 mg/dL (<=200); HDL Cholesterol 87 mg/dL (40-60); Triglycerides 99 mg/dL (<=150); VLDL CHOLESTEROL 19.8 mg/dL
== END 2024-05-01 06:53 | disposition home or self-care (01) ==
LOC: LAB 06:55
PROVIDERS: PCP Family Medicine; Visit Provider Internal Medicine Cardiovascular Disease
DX: E78.5 Hyperlipidemia, unspecified (principal)
CPT/HCPCS: 36415; 80061

== ENCOUNTER 2024-05-29 10:22 | Outpatient (RCR) | payer MEDICARE, OTHER, SELFPAY | END 2024-06-10 14:24 | disposition home or self-care (01) | LOC: PT 10:22 | PROVIDERS: PCP Family Medicine; Visit Provider Family Medicine | DX: R27.0 Ataxia, unspecified (principal) | CPT/HCPCS: 97112; 97161 ==

== ENCOUNTER 2024-06-11 10:42 | Outpatient (RCR) | payer MEDICARE, OTHER, SELFPAY | END 2024-07-05 08:17 | disposition home or self-care (01) | LOC: PT 10:42 | PROVIDERS: PCP Family Medicine; Visit Provider Family Medicine | DX: R27.0 Ataxia, unspecified (principal) | CPT/HCPCS: 97110; 97112 ==

== ENCOUNTER 2024-06-18 10:50 | Outpatient (OUT) | payer MEDICARE, OTHER, SELFPAY ==
--- NOTE | 2024-06-18 11:14 | PM.CN ---
Consult Note: HPI Data of Consult Patient: known to practice within the last 3 years Consult date: 08/20/23 Requesting Physician: Shana Marie NP Primary Care Provider: Kavon Leary MD Consult Narrative Reason for consult: neck, low back pain Narrative: 79yof who presents for assessment. persistence of neck and low back pain for months. imaging reviewed, which shows multilevel facet arthropathy and spondylosis throughout cervical and lumbar spines. continues in provider directed home exercise program >6 weeks and has continues in physical therapy to date, without significant benefit. has had good relief with addition of flexeril and gabapentin. denies adverse med side effects. Recently underwent bilateral L4-5 l5-s1 facet medial branch thermal RFA with 100% improvement ongoing. BOUBACAR 0% pain 2/10 at all times cc:: CC: Shana Marie NP Review of Systems ROS Status of ROS 10 or more systems reviewed and unremarkable except as noted in history and below [facility] Medical History Acute diarrhea ?R19.7 - Diarrhea, unspecified (ICD-10) Acute kidney injury ?N17.9 - Acute kidney failure, unspecified (ICD-10) Hiatal hernia ?K44.9 - Diaphragmatic hernia without obstruction or gangrene (ICD-10) COPD (chronic obstructive pulmonary disease) ?J44.9 - Chronic obstructive pulmonary disease, unspecified (ICD-10) Parkinsons ?G20 - Parkinson's disease (ICD-10) Hypertension ?I10 - Essential (primary) hypertension (ICD-10) Surgical History History of appendectomy ?Z90.49 - Acquired absence of other specified parts of digestive tract (ICD-10) H/O: hysterectomy ?Z90.710 - Acquired absence of both cervix and uterus (ICD-10) H/O splenectomy ?Z90.81 - Acquired absence of spleen (ICD-10) Family History Brother Family history of stroke Family history of hypertension Mother Family history of stroke Family history of hypertension Father Family history of cancer Social History Within the past year, how often did you have a drink containing alcohol: never Within the past year, how many standard drinks containing alcohol did you have on a typical day: 1 or 2 Within the past year, how often did you have six or more drinks on one occasion: never Total score: 0 Score interpretation: A score less than 3 is consistent with normal alcohol consumption. Smoking status: Former smoker Non-prescribed substance use: denies use Previous occupational history: retired Highest level of school completed/degree received: high school graduate Are you now , , , , never or living with a partner: In a typical week, how many times do you talk on the telephone with family, friends, or neighbors: 3 or more times per week How often do you get together with friends or relatives: 3 or more times per week How often do you attend cheondoism or anglican services: 4 or more times per year Do you belong to any clubs or organizations such as cheondoism groups unions, [employer] or athletic groups, or school groups: no Total score: 2 Score interpretation: A score of greater than or equal to 2 indicates the lowest level of social isolation. Little interest or pleasure in doing things: not at all Feeling down, depressed, or hopeless: not at all Feel stressed/tense/nervous/anxious/difficulty sleeping: not at all Gender Identity: female Meds Home Medications and Allergies Home Medications ?Medication ?Instructions ?Recorded ?Confirmed ?Type alprazolam 1 mg tablet 1.5 mg PO BEDTIME PRN sleep 02/08/23 04/09/24 History amlodipine 5 mg tablet 5 mg PO DAILY 02/08/23 04/09/24 History potassium chloride 20 mEq 20 meq PO BID 02/08/23 04/09/24 History tablet,extended release(part/cryst) (Klor-Con M) pravastatin 20 mg tablet 20 mg PO DAILY 02/08/23 04/09/24 History ascorbic acid (vitamin C) 1,000 mg 1 g PO DAILY 07/30/23 04/09/24 History capsule cholecalciferol (vitamin D3) 125 125 mcg PO DAILY 07/30/23 04/09/24 History mcg (5,000 unit) capsule cyclobenzaprine 10 mg tablet 10 mg PO BID PRN muscle spasm 07/30/23 04/09/24 History gabapentin 300 mg capsule 300 mg PO TID 07/30/23 04/09/24 History ropinirole 0.25 mg tablet 0.5 mg PO TID 07/30/23 04/09/24 History aspirin 81 mg chewable tablet 81 mg PO DAILY 08/10/23 04/09/24 History lutein 25 mg-zeaxanthin 5 mg 1 cap PO DAILY 08/10/23 04/09/24 History capsule rasagiline 1 mg tablet 1 mg PO DAILY 08/10/23 04/09/24 History amantadine HCl 100 mg tablet 100 mg PO BID 04/09/24 04/09/24 History carbidopa ER 25 mg-levodopa 100 mg 1 tab PO .7am, 12pm, 5pm 04/09/24 04/09/24 History tablet,extended release lisinopril 20 1 tab PO DAILY 04/09/24 04/09/24 History mg-hydrochlorothiazide 25 mg tablet pantoprazole 40 mg tablet,delayed 40 mg PO DAILY 04/09/24 04/09/24 History release zinc gluconate 50 mg tablet 50 mg PO DAILY 04/09/24 04/09/24 History Allergies Allergy/AdvReac Type Severity Reaction Status Date / Time Sulfa (Sulfonamide Allergy Severe Anaphylaxis Verified 04/09/24 08:10 Antibiotics) Exam Constitutional Documenting provider has reviewed patient's vital signs: yes Common normals: no apparent distress, oriented x3, healthy appearing, alert and well nourished General appearance: cooperative HENUT Common normals: normocephalic, hearing grossly normal bilaterally and moist oral mucous membranes Head and scalp: normocephalic Eye Common normals: PERRL Pupil: PERRL Neck & C-Spine Common normals: full ROM General: normal visual inspection Chest Common normals: inspection of chest normal Respiratory Common normals: normal respiratory effort, no retractions and no use of accessory muscles Back & Pelvis Lumbar spine/lower back: normal to inspection, lumbar ROM normal and straight leg raise negative bilaterally Sacroiliac joints: SI joints normal Other: negative facet loading negative radiculopathy Extremity Common normals: normal to inspection and full ROM Neuro Common normals: oriented x3, CN's II-XII intact bilaterally, moves all extremities, no focal motor deficits, no sensory deficits noted, deep tendon reflexes 2+ bilaterally and gait normal Sensorium/orientation: alert Motor exam: strength 5/5 throughout and no movement abnormalities noted Psych Common normals: mental status grossly normal, thought process normal, cooperative, affect normal, speech normal and activity/motor behavior normal Speech: normal speech Thought process: normal thought process Results Additional Findings Additional findings: If on a controlled substance or opioids, I have checked an [place] report on this patient and there are no aberrancies noted in the prescribing history.??If on a controlled substance or opioid a drug screen was completed and reviewed within the last year, and if there has not been a drug screen completed we ordered one today to monitor higher risk, state monitored pain medication use. As part of providing excellent, safe, comprehensive care, the following was completed at our patient's visit: 1. A medication reconciliation and review to ensure accurate knowledge of current/active medications, including asking our patients to inform us about any [id number] medications or herbal remedies/nutritional supplements/alternative remedies. 2. A review to specifically ensure our patients have had annual screening for screening for depression, screening for tobacco use, and screening for unhealthy alcohol use. For concerning screenings had a discussion with the patient, provided patient education, and recommended follow-up with primary care provider when appropriate. If patient noted with a risk of falling, they received education on strength, gait, and balance training to prevent future risk of falling. Assessment and Plan Assessment and Plan (1) Lumbar spondylosis: Plan continue gabapentin 300mg BID continue flexeril 10mg BID PRN myofascial pain f/u 6 months, sooner if needed
== END 2024-06-18 10:51 | disposition home or self-care (01) ==
LOC: PM 10:50
PROVIDERS: PCP Family Medicine; Visit Provider Nurse Practitioner
DX: M47.816 Spondylosis without myelopathy or radiculopathy, lumbar region (principal)
CPT/HCPCS: G0463

== ENCOUNTER 2024-07-22 11:46 | Outpatient (OUT) | payer MEDICARE, OTHER, SELFPAY ==
--- OUTSIDE RECORDS SUMMARY | 2024-07-22 11:56 | XMS_ITS | CCD ---
Author Organization [facility] Care Team Providers Care Primary Care Nurse Name Role Phone SELF, REFERRED Unavailable Unavailable SELF, REFERRED Unavailable Unavailable BRAMOS, ATHANASIOS Unavailable Unavailable SUPA MAY Unavailable Unavailable [facility] Unavailable Unavailable BRAMOS, ATHANASIOS Unavailable Unavailable [facility] Unavailable Unavailable SUPA MAY Unavailable Unavailable PHYSICIAN, DEFAULT Unavailable Unavailable PHYSICIAN, DEFAULT Unavailable Unavailable SELF, REFERRED Unavailable Unavailable PHYSICIAN, DEFAULT Unavailable Unavailable PHYSICIAN, DEFAULT Unavailable Unavailable PAY ., DR DOUGLAS Admitting Unavailable ZIEBFESTUS, DR RAMIRO Gates Consulting Unavailable HOY ., [...] Unavailable MD Rodrick Sams Primary Care Provider DIXIE Gill Attending Provider [phone] Rodrick Sams Primary Care Physician Elian Quigley Unavailable Unavailable Mela Espinal Admitting Unavailable Haile CASTRO Attending Unavailable [place], Ramiro Consulting Unavailable [place], Ramiro Consulting Unavailable [place], Ramiro Consulting Unavailable [place], Ramiro Consulting Unavailable [place], Ramiro Consulting Unavailable [place], Ramiro Consulting Unavailable [place], Ramiro Consulting Unavailable [place], Ramiro Consulting Unavailable [place], Ramiro Consulting Unavailable Demarco Beaver Attending Unavailable Giovanni Gill Attending Unavailable Rodrick Sams Primary Care Unavailable Giovanni Gill S Admitting Unavailable Giovanni Gill Attending Unavailable Rodrick Sams Primary Care Unavailable Giovanni Gill S Admitting Unavailable Rodrick Sams MD Unavailable Rodrick Sams Md Primary Care Provider Rodrick Sams Md Primary Care Provider [phone] Andrae HERRERA, Andrius Nath Attending Unavailable Giedraitis , Andrius Valla Attending Unavailable Gikulwinderitis , Andrius Vyterlinda Attending Unavailable Giedraitis , Andrius Valla Attending Unavailable Gimaulik HERRERA, Andrius Valla Attending Unavailable SHEEHAN, JIANLIN Admitting Unavailable SHEEHAN, JIANLIN Attending Unavailable SHEEHAN, JIANLIN Admitting Unavailable AMRIK, MILA Referring Unavailable SHEEHAN, JIANLIN Attending Unavailable AMRIK, MILA Attending Unavailable STEPHENIE PRECIADO Attending Unavailable JOSH THIBODEAUX Referring Unavailable SHEEHAN, JIANLIN Attending Unavailable AMRIK, MILA Referring Unavailable SHEEHAN, JIANLIN Attending Unavailable SHEEHAN, JIANLIN Referring Unavailable SHEEHAN, JIANLIN Attending Unavailable SHEEHAN, JIANLIN Attending Unavailable AMRIK, MILA Attending Unavailable Rodrick Sams MD Primary Care Provider [phone] GIOVANNI GILL Attending Unavailable GIOVANNI GILL Attending Unavailable GIOVANNI GILL Referring Unavailable GIOVANNI GILL Attending Unavailable SIDRA, DAVID Referring Unavailable SIDRA, DAVID Referring Unavailable SIDRA, DAVID Attending Unavailable SIMON, MARIOLA Referring Unavailable SIMON, MARIOLA Attending Unavailable SIMON, MARIOLA Referring Unavailable SIMON, MARIOLA Attending Unavailable SIMON, MARIOLA Attending Unavailable SIDRA, DAVID Referring Unavailable DAVID VALENTE Referring Unavailable Allergies Allergy Classification Reported Allergen(s) Allergy Type Date of Onset Reaction(s) Facility Sulfonamides (antibiotic) (1 source) Sulfonamides (Antibiotic); 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: [sulfa drugs] Drug Allergy Unknown (qualifier value) [facility] (5 sources) Sulfonamides (Antibiotic); Translations: [SULFA (SULFONAMIDE ANTIBIOTICS)] Drug allergy (disorder) 4 [facility] (1 source) Cephalexin Drug Allergy [address] [facility] Repository (2 sources) Sulfonamides (Antibiotic); Translations: [sulfa drugs] Drug allergy Unknown (qualifier value) [facility] (1 source) Unable to Assess Drug allergy (disorder) 3 [facility] Repository (14 sources) Naproxen; Translations: [NAPROXEN SODIUM] Drug Allergy 4 Unknown [facility] (19 sources) Sulfonamides (Antibiotic) Drug Allergy 4 Anaphylaxis [facility] (1 source) traZODone; Translations: [TRAZODONE] Drug Allergy 4 [facility] Repository Medications Current Medications Medication Drug Class(es) Dates Sig (Normalized) Sig (Original) acetaminophen 500 mg oral tablet (6 sources) Start: 09-18-2023 take 1 tablet by mouth every six hours as needed [facility] Acetaminophen [facility] 500 MG tablet Take 500 mg by mouth every 6 (six) hours if needed 09/18/2023 Active ALPRAZolam 1 mg oral tablet (20 sources) Benzodiazepine Start: 02-10-2020 alprazolam 1 mg Tab 1 mg = 1 tab(s), Oral, PRN for anxiety Start Date: 02/10/20 Status: Ordered Comment on above: Take 1 mg by mouth a t bedtime as needed. amantadine hydrochloride 100 mg oral tablet (19 sources) Influenza A M2 Protein Inhibitor Start: 07-16-2024 End: 10-14-2024 take 1 tablet by mouth three times daily amantadine HCl (SYMMETREL) 100 mg tablet Indications: Parkinson's disease with dyskinesia and fluctuating manifestations (HCC) Take 1 tablet by mouth three times a day. With each dose of sinemet. 270 tablet 07/16/2024 10/14/2024 Active Start: 10-22-2023 End: 11-07-2024 take 1 tablet by mouth twice daily amantadine HCl (SYMMETREL) 100 mg tablet Indications: Parkinson's disease with dyskinesia and fluctuating manifestations (HCC) Take 1 tablet by mouth two times a day. Take with first and second dose of sinemet. 180 tablet 3 11/08/2023 07/16/2024 Discontinued Start: 10-17-2023 End: 01-15-2024 take 1 tablet [...] (Dosage adjustment) amLODIPine 5 mg oral tablet (20 sources) Dihydropyridine Calcium Channel Ayo Start: 07-02-2023 [...] once daily. aspirin 81 mg oral tablet (20 sources) Platelet Aggregation Inhibitor, Nonsteroidal Anti-inflammatory Drug [...] (Calcium 600+D Plus Minerals) 600-400 MG-UNIT tablet (6 sources) Calcium Carbonat e-Vit D-Min (Calcium 600+D Plus Minerals) 600-400 MG-UNIT tablet 1 (one) time each day at the same time Active carbidopa 25 mg / levodopa 100 mg extended release oral tablet (20 sources) Aromatic Amino Acid Decarboxylation Inhibitor, Aromatic Amino Acid Start: 01-14-20 End: 03-04-20 take 1 tablet by mouth three times [...] day(s), # 15 cap(s), Refills(s) 0, Pharmacy: [facility]/pharmacy #[id number], 167, cm, 06/23/23 1:52:00 EST, Height/Length Dosing, 56.3, kg, 06/23/23 1:52:00 EST, Weight Dosing Start Date: 06/23/23 Stop Date: 06/28/23 Status: Ordered cholecalciferol 0.05 mg oral tablet (13 sources) Vitamin D take 1 tablet by [...] afterwards, # 2 tab(s), Refills(s) 0, [id number] 167, cm, 02/10/20 14:06:00 EDT, Height/Length Dosing, 52, kg, 02/10/20 14:06:00 EDT, Weight Dosing Start Date: 02/25/20 Status: Ordered cyclobenzaprine hydrochloride 10 mg oral tablet (19 sources) Muscle Relaxant Start: 2023 cyclobenzaprine (FLEXERIL) [...] Status: Ordered gabapentin 300 mg oral capsule (19 sources) Anti-epileptic Agent Start: 2023 take 1 capsule by mouth once daily, then take 1 capsule by mouth twice daily, then take 1 capsule by mouth three times daily gabapentin (NEURONTIN) 300 mg capsule TAKE 1 CAPSULE BY MOUTH ONCE DAILY X3DAYS, 1 CAPSULE TWICE DAILY X3DAYS THEN 1 CAPSULE 3 TIMES DAILY 07/30/2023 Active Comment on above: TAKE 1 CAPSULE BY MO RUST ONCE DAILY X3DAYS, 1 CAPSULE TWICE DAILY X3DAYS THEN 1 CAPSULE 3 TIMES DAILY hydroCHLOROthiazide 25 mg / lisinopril 20 mg oral tablet (20 sources) Thiazide Diuretic, Angiotensin Converting Enzyme Inhibitor Start: 2019 take 2 tablets by mouth once daily hydrochlorothiazide-l isinopril 25 mg-20 mg Tab 2 tab(s), Oral, Daily Start Date: 02/10/20 Status: Ordered Comment on above: [facility] lisinopril 20 mg oral tablet (6 sources) Angiotensin Converting Enzyme Inhibitor take 1 tablet by mouth once daily lisinopril 20 MG tablet Take 1 tablet by mouth Daily Active metoprolol tartrate 100 mg oral tablet (13 sources) beta-Adrenergic Ayo End: 2023 take 1 tablet by mouth in the morning metoprolol tartrate (Lopressor) 100 MG tablet Take 100 mg by mouth in the morning and 100 mg before bedtime. Active Comment on above: Take 100 mg by mouth twice daily. Misc Medication (2 sources) Start: 2019 Misc Medication calcium +D3 Start Date: 02/10/20 Status: Ordered Multivitamin preparation (13 sources) MULTIVITAMIN ( TAMIN DAILY ORAL) Take by mouth once daily. Active MULTIVITAMIN ( TAMIN DAILY ORAL) Take by mouth once daily. 0 Active Comment on above: Take by mouth once d aily. omeprazole 20 mg delayed release oral capsule (6 sources) Proton Pump Inhibitor Start: take 1 capsule by mouth before mealtime omeprazole (PriLOSEC) [address] capsule Take 20 mg by mouth in the morning. Take before meals. 09/11/2023 Active pantoprazole 40 mg delayed release oral tablet (6 sources) Proton Pump Inhibitor take 1 tablet by mouth before mealtime pantoprazole (ProtoNix) 40 MG EC tablet Take 40 mg by mouth in the morning. Take before meals. Active phenazopyridine hydrochloride 200 mg delayed release oral tablet (6 sources) Start: phenazopyridine (Pyridium) 200 MG tablet Take 200 mg by mouth in the morning and 200 mg at noon and 200 mg in the evening. Take with meals. 09/07/2023 Active microencapsulated potassium chloride 20 meq extended release oral tablet (20 sources) Start: 024 take 1 tablet by mouth every twelve hours KLOR-CON M20 20 mEq tablet Take 1 tablet by mouth every 12 hours. 06/30/2023 Active Start: 06-30-2023 take 1 tablet by clyde th in the morning KLOR-CON 20 MEQ ER tablet Take 1 tablet by mouth in the morning and 1 tablet in the evening. Take with meals. 06/30/2023 Active Start: 02-10-2020 take 2 tablets by mo ut once daily potassium chloride 20 mEq ER Tab 40 mEq = 2 tab(s), Oral, Daily Start Date: 02/10/20 Status: Ordered potassium chlori de (KLOR-CON 10) 10 mEq tablet Take 20 mEq by mouth once daily. Active take 2 tablets by mo [facility] in the morning potassium chloride CR (Klor-Con) 10 MEQ ER tablet Take 20 mEq by mouth in the morning and 20 mEq before bedtime. Active Comment on above: Take 20 mEq by mouth once daily. Take 1 tablet by clyde th every 12 hours. pravastatin sodium 20 mg oral tablet (20 sources) HMG-CoA Reductase Inhibitor Start: 02-10-2020 take 1 tablet by mouth once daily Pravachol 20 mg Tab 20 mg = 1 tab(s), Oral, Daily Start Date: 02/10/20 Status: Ordered Comment on above: Take 20 mg by mouth once daily. rasagiline 1 mg oral tablet (19 sources) Monoamine Oxidase Inhibitor Start: 07-20-2023 take 1 tablet by mouth once daily rasagiline (Azilect) 1 MG tablet Indications: Parkinson's disease ([facility]) TAKE 1 TABLET BY MOUTH EVERY DAY 90 tablet 1 03/27/2024 Active Comment on above: Take by mouth. rOPINIRole 0.25 mg oral tablet (19 sources) Nonergot Dopamine Agonist Start: 09-13-2023 rOPINIRole (REQUIP) 0.25 mg tablet Reduce to 2 tablets, twice/day. After a week, reduce it to 1 tablet in morning and 2 tabs at night. After a week, reduce to only 2 tabs at night. After a week, reduce it to 1 tab at night. Continue on that dose thereafter. 70 tablet 2 09/13/2023 Active Start: 09-13-2023 take 1 tablet by clyde th at bedtime rOPINIRole (Requip) 0.25 MG tablet Take 0.25 mg by mouth at bedtime 09/13/2023 Active Comment on above: Reduce to 2 tablets, twice/day. After a week, reduce it to 1 tablet in morning and 2 tabs at night. After a week, reduce to only 2 tabs at night. After a week, reduce it to 1 tab at night. Continue on that dose thereafter. 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] 07-16-2024 Episodic Chronic obstructive pulmonary disease and bronchiectasis (10 [...] Onset: 10-12-2022 Chronic Miscellaneous mental health disorders (6 sources) Primary insomnia; Translations: [Primary insomnia] Onset: [...] deficits] Onset: 08-14-2023 Episodic Other circulatory disease (6 sources) History of cerebrovascular accident; Translations: [Personal [...] Other hereditary and degenerative nervous system conditions (6 sources) Intention tremor; Translations: [Other specified forms of tremor] Onset: 10-25-2023 10-25-2023 Chronic Other hereditary and degenerative nervous system conditions (10 sources) Restless legs; Translations: [Restless legs syndrome] Onset: 10-25-2023 10-25-2023 Chronic Other hereditary and degenerative nervous system conditions (8 sources) Dyskinesia; Translations: [Dystonia, unspecified] Onset: 10-25-2023 10-25-2023 Chronic Other lower respiratory disease (1 source) Hypoxemia; Translations: [Hypoxemia] Onset: 06-23-2023 Episodic Other nervous system disorders (14 sources) Neuropathy; Translations: [Polyneuropathy, unspecified] Onset: 09-13-2023 09-13-2023 Chronic Other nervous system disorders (8 sources) Carpal tunnel syndrome of right wrist; Translations: [Carpal tunnel syndrome, right upper limb] Onset: 10-25-2023 10-25-2023 Chronic Other nervous system disorders (8 sources) Chronic pain; Translations: [Other chronic pain] Onset: 10-25-2023 10-25-2023 Chronic Other nervous system disorders (1 source) Polyneuropathy, unspecified; Translations: [Neuropathy] Onset: 09-13-2023 Chronic Other nutritional; endocrine; and metabolic disorders (2 sources) Hypocalcemia; Translations: [Other disorders of phosphorus metabolism] Onset: 08-11-2017 Chronic Other screening for suspected conditions (not mental disorders or infectious disease) (1 source) Blood chemistry abnormal; Translations: [Other specified abnormal findings of blood chemistry] Onset: 06-23-2023 Episodic Other upper respiratory disease (1 source) Hoarse; Translations: [Dysphonia] 07-16-2024 Episodic Paralysis (6 sources) Right hemiplegia; Translations: [Hemiplegia, unspecified affecting [...] fluctuations] Onset: 06-23-2023 Chronic 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) 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 tender (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) use of oral hypoglycemic drugs; Translations: [LICENSED SURVEYOR (CURRENT) USE OF ORAL HYPOGLYCEMIC DRUGS] Onset: [...] Onset: 08-11-2017 Episodic Calculus of urinary tract (13 sources) Kidney stone; Translations: [Calculus of kidney] [...] 08-13-2023 Episodic Genitourinary symptoms and ill-defined conditions (14 sources) Personal history of urinary (tract) infections; [...] Onset: 05-24-2022 Episodic Other aftercare (2 sources) 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 tender (current) use of aspirin; Translations: [LICENSED SURVEYOR (CURRENT) USE OF ASPIRIN] Onset: 08-11-2017 Episodic Other aftercare (1 source) Other half-way (current) drug therapy; Translations: [OTH HALFWAY CURRENT DRUG THERAPY] Onset: 05-22-2022 Episodic Other connective tissue disease (15 sources) Abnormal posture; Translations: [Abnormal posture] Onset: 09-13-2023 09-13-2023 Episodic Other connective tissue disease (1 source) Abnormal posture; Translations: [Abnormal posture] Onset: 09-13-2023 Episodic Other diseases of kidney and ureters (2 sources) Hydronephrosis 02-10-2020 Episodic Other diseases of kidney and ureters (2 sources) Kidney disease 02-10-2020 Episodic Other diseases of kidney and ureters (15 sources) Obstruction of pelviureteric junction; Translations: [Crossing vessel and stricture of ureter without hydronephrosis] Onset: 02-20-2020 02-10-2020 Episodic Other diseases of kidney and ureters (13 sources) Stricture of ureter; Translations: [Crossing vessel [...] Onset: 12-27-2021 Episodic Other nervous system disorders (14 sources) Hyperreflexia; Translations: [Abnormal reflex] Onset: 09-13-2023 09-13-2023 Episodic Other nervous system disorders (2 sources) Other acute postprocedural pain; Translations: [Other acute postprocedural pain] Onset: 09-17-2023 Episodic Other nervous system disorders (6 sources) Ataxia; Translations: [Ataxia, unspecified] Onset: 10-25-2023 10-25-2023 Episodic Other nervous system disorders (6 sources) Paresthesia; Translations: [Paresthesia of skin] Onset: [...] SPLEEN] Onset: 05-22-2022 Episodic Residual codes; unclassified (14 sources) Memory impairment; Translations: [Other amnesia] Onset: [...] Test Name Value Interpretation Reference Range Facility [facility] 07-16-2024 CNOV Office Visit (NREUS2 ) JUDITH KHAN ([id number]) 1945 F Date Time Provider Department 07/16/24 3:00 PM MARIOLA MONTES NREUS2 During your visit today, we recorded the following information about you: Pulse Blood pressure 97/minute 149/71 Ga Shaw MA 07/16/2024 5:27 PM Signed Reason for WROTF Tablet to not get completed: Patient refused because declined all tablets Mariola Montes PA-C 07/16/2024 5:27 PM Signed [facility] - FOLLOW UP EVALUATION Primary Movement Disorders Neurologist: David Valente MD Primary Movement Disorders BRUCE: STEPHON Coe Md (Inactive) No address on file Dear Md Rodrick Sams (Inactive): I had the pleasure of seeing Ms. Khan for follow-up today. As you know she is a 79 year old right-handed female with a history of parkinson disease since 2014. She is seen with a daughter. Subjective Previous Plan-02/22/2024 Visit with myself Parkinson's Disease - I am so pleased to hear that your medication change was beneficial. Please continue medications as prescribed below. Continue daily walking Please follow-up in 6 to 8 months, or sooner with any new concerns Interval History: Judith presents to the office for Parkinson's disease follow-up. She has felt very pleased with her condition recently. As recommended she completed Parkinson's disease physical therapy, Occupational Therapy, and speech therapy. She still works on her home exercises religiously with her grand daughter. She is happy with her medication schedule. Until about 2 weeks ago she did not have any dyskinesia at all. More recently she started to experience some dyskinesias in the late evening. Her restless legs are well-controlled with ropinirole. Endorses some frustrations about not being able to do the activities that she used to do before Parkinson's disease. She has strong family support with her daughter and granddaughter. Movement Disorders Medications Schedule - as of the start of the visit: Medications breakfast lunch bedtime ropinerole 0.25mg 1 azilect 1mg 1 sinemet CR 25/100mg 1 1 1 amantadine 100 mg 1 1 Prior Anti-Parkinson Therapies Carbidopa/Levodopa Rasagiline Ropinirole ALLERGIES Allergen Reactions Aleve [Naproxen Sod* Unknown Sulfa (Sulfonamide * Anaphylaxis Current Outpatient Medications Medication Sig carbidopa-levodopa CR (SINEMET CR) 25-100 mg per tablet TAKE 1 TABLET BY MOUTH THREE TIMES A DAY AT 7AM, 12PM, AND 5PM gabapentin (NEURONTIN) 300 mg capsule TAKE 1 CAPSULE BY MOUTH ONCE DAILY X3DAYS, 1 CAPSULE TWICE DAILY X3DAYS THEN 1 CAPSULE 3 TIMES DAILY rasagiline (AZILECT) 1 mg tab Take by mouth. KLOR-CON M20 20 mEq tablet Take 1 tablet by mouth every 12 hours. cyclobenzaprine (FLEXERIL) 10 mg tablet Take 10 [...] Take 1 tablet by mouth once daily. AMLODIPINE BESYLATE (AMLODIPINE ORAL) Take 10 mg by mouth once daily. Cholecalciferol, Vitamin D3, (D3 DOTS) 2,000 unit tab Take 2,000 Units by mouth once daily. MULTIVITAMIN (VITAMIN DAILY ORAL) Take by mouth once daily. amantadine HCl (SYMMETREL) 100 mg tablet Take 1 tablet by mouth three times a day. With each dose of sinemet. ALPRAZolam (XANAX) 1 mg tablet Take 1 mg by mouth at bedtime as needed. potassium chloride (KLOR-CON 10) 10 mEq tablet Take 20 mEq by mouth once daily. No current facility-administered medications for this visit. Objective Vital Signs: BP 149/71 (BP Site: Left Arm, BP Position: Sitting, BP Cuff Size: Regular Adult) Pulse 97 SpO2 97% General Physical Examination: Awake, alert, interactive, no acute distress, normal development, well-kept woman. Mild dyskinesias. MDS-UPDRS Motor subscale condition of exam Medication Off/On/Naiive ON Time of UPDRS Time of Last Medication Last Medication Taken DBS Right N/A DBS Left N/A MDS-UPDRS Motor subscale scores Speech 2-Mild. Loss of modulation, diction, or volume, with a few words unclear, but the overall sentences easy to follow. Facial Expression 1-Slight. Minimal masked facies manifested only by decreased frequency of blinking. Rigidity Neck 1-Slight. Rigidity only detected with activation maneuver. Rigidity Right Upper Extremity 1-Slight. Rigidity only detected with activation maneuver. Rigidity Left Upper Extremity 1-Slight. Rigidity only detected with activation maneuver. Rigidity Right Lower Extremity 0-Normal. No (more content not included)... 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 Normal [facility] CNOVon 01-14-2024 CNOV Office Visit (NREUS2 ) JUDITH KHAN ([id number]) 1945 F Date Time Provider Department 01/14/24 2:00 PM MARIOLA MONTES NREUS2 During your visit today, we recorded the following information about you: Pulse Blood pressure Weight Height 92/minute 144/63 54 kg 1.676 m Mariola Montes PA-C 01/14/2024 8:44 PM Signed [facility] - FOLLOW UP EVALUATION Md Rodrick Sams (Inactive) No address on file Dear Md Rodrick Sams (Inactive): I had the pleasure of [...] or a (more content not included)... Normal [facility] Office Visiton 12-20-2023 Follow-up visit [id number] Ira Khan 1945 Date Provider Department Center 12/20/2023 [facility]8-STEPHENIE PRECIADO [facility] Family History Problem Relation Age of Onset Stroke Mother Stroke Brother Other Mother's Sister Coronary artery disease Mother's Sister Stroke Maternal Grandmother Family Status - Relation Status Age at Mother Brother Mother's Sister Maternal Grandmother Level of Service:52264 [place] OFFICE/OUTPATIENT ESTABLISHED MOD MDM 30 MIN Normal [facility] 36on 12-04-2023 36 . Normal [facility] Office Visiton 11-27-2023 Follow-up visit [id number] Ira Khan 1945 Date Provider Department Center 11/27/2023 [facility]-VERENA SHEEHAN [facility] [address] Family History Problem Relation Age of Onset Stroke Mother Stroke Brother Other Mother's Sister Coronary artery disease Mother's Sister Stroke Maternal Grandmother Family Status - Relation Status Age at Mother Brother Mother's Sister Maternal Grandmother Level of Service:10617 [place] POSTOP FOLLOW UP VISIT RELATED TO ORIGINAL PX Reason for Visit and Comments: Post-op [483] - Judith is here today for a post op visit for an incisional hernia, s/p 09/17/23 DaVinci incisional hernia repair. [facility] CNPNon 11-08-2023 CNPN Telephone (NREUS2) BILLJUDITH ([id number]) 1945 F Date Time Provider Department 11/08/23 DAVID VALENTE NREUS2 During your visit today, we recorded the following information about you: Leonora Cisneros 11/08/2023 12:01 PM Addendum Jaimee (pt' granddaughter) called to report this week pt's back to experiencing jerking movement. Pt started Amantadine 100 mg week of October 24 and first week medication helped dyskinesia. [phone] 09/13/23 DARRYL w/Dulce Mariano RN 11/08/2023 12:57 [...] Encounter Statu (more content not included)... Normal [facility] 10-17-2023 CNPN Telephone (NREUS2) BILLIRAJUDITH ([id number]) 1945 F Date Time Provider Department 10/17/23 DAVID VALENTE NREUS2 During your visit today, we recorded the following information about you: Gabbi Lu 10/17/2023 10:17 AM Signed Judith phoned for results of MRI done on 10/06. She does not use and would like a return call. [phone] David Valente MD 10/17/2023 10:25 AM Signed [...] Please call daughter Kathie only to discuss [phone]. I also updated all of the phone number in her chart to reflect only Kathie's. Dulce Melgar, RN 10/22/2023 10:24 AM Signed Spoke with Kathie. As of 10/17/23 pt was supposed to start 100mg Amantadine daily for increased dyskinesia. Pt has not yet started, they would like the script sent to [facility] in [place] (instead of [facility]). Script sent as requested. Also reviewed MRI [...] mouth once daily. Cosign required by DAVID VALENTE[[id number]] Medications Discontinued During This Encounter Prescriptions - amantadine HCl (SYMMETREL) 100 mg tablet (Discontinued) Take 1 tablet by mouth once daily. (more content not included)... Normal [facility] 10-09-2023 CNPN Telephone (NREUS2) BILLJUDITH ([id number]) 1945 F Date Time Provider Department 10/09/23 DAVID VALENTE NREUS2 During your visit today, we recorded the following information about you: Mila Jin 10/09/2023 11:41 AM Signed Patients daughter calling to say there was medication discussed during last OV for dyskinesia. They want to know what it was and if it can be prescribed because she's still having this issue. Kathie Calvillo (Daughter) [phone] (Home Phone) David Valente MD 10/17/2023 9:43 AM Signed Dear Neelima, If she lives alone, I'd prefer the zonisamide. If she lives with someone who can monitor for the possible cognitive side effects of amantadine, I'd prefer amantadine. Thanks! -Neelima Miguel APRN.[facility] 10/17/2023 5:29 PM Signed Addended by: [...] Status:Closed by GABBI LU on 10/17/23 Normal [facility] MR Cervical spine WO contras ton [...] are otherwise unremarkable. DIVISION OF RADIOLOGY Provider, [facility] - 10/07/2023 * * *Final Report* [...] lumbar spine wi (more content not included)... [facility] MR Lumbar spine WO contrasto n [...] are otherwise unremarkable. DIVISION OF RADIOLOGY Provider, Karrie Andrews - 10/07/2023 * * *Final Report* * [...] the cervical, thor (more content not included)... [facility] Radiology Study observation (narrative) [facility] MR Thoracic spine WO contras ton [...] are otherwise unremarkable. DIVISION OF RADIOLOGY Provider, [facility] - 10/07/2023 * * *Final Report* [...] spine without contrast. (more content not included)... [facility] MRI CERVICAL SPINE WO IVCONo n [...] L4-5 i (more content not included)... Normal [facility] MRI LUMBAR SPINE WO IVCONon 10-07-2023 [...] Anatomic Thoracic/L (more content not included)... Normal [facility] MRI THORACIC SPINE WO IVCONo n [...] the l (more content not included)... Normal [facility] No Panel Informationon 10-06 IMPRESSION: Degenerative [...] and assume there are 5 lumbar-type vertebrae. Car Worker: PSCB Transcribe Date/Time: Oct 07 2023 12:07P Dictated by : YANETH SALDAÑA MD This examination was interpreted and the report reviewed and electronically signed by: YANETH SALDAÑA MD on Oct 07 2023 12:21PM [facility] DIVISION OF RADIOLOGY Radiology Study observation (narrative) [facility] No Panel InformationOrdered By: Ccf Provider on 10-07-2023 [facility] Office Visiton 09-26-2023 Follow-up visit [id number] Ira Khan 1945 F Date Provider Department Center 09/26/2023 VERENA TANNER [facility] SURG [place] Family History Problem Relation Age of Onset Stroke Mother Stroke Brother Other Mother's Sister Coronary artery disease Mother's Sister Stroke Maternal Grandmother Family Status - Relation Status Age at Mother Brother Mother's Sister Maternal Grandmother Level of Service:74139 [facility] POSTOP FOLLOW UP VISIT RELATED TO ORIGINAL PX Reason for Visit and Comments: Post-op [483] - Judith is here today for a post op visit for an incisional hernia, s/p 09/17/23 DaVinci incisional hernia repair. Normal [facility] 30on 09-18-2023 30 The patient [...] Free from fall injury Outcome: Progressing Normal [facility] BASIC METABOLIC PANELon 04-0 Anion gap [Moles/Vol] 11 mmol/L Normal 7-20 [facility] Comment on above: Performed By: #### L [id number] #### [facility] ([facility]AKER) [address] [place] [address] Calcium [Mass/Vol] 9.0 mg/dL Normal 8.6-10.3 [facility] Comment on above: Performed By: #### L [id number] #### [facility] (BEAKER) [address] [place] [address] Chloride [Moles/Vol] 107 mmol/L Normal 98-107 [facility] Comment on above: Performed By: #### L [id number] #### [facility] (BEAKER) [address] [place] [address] CO2 [Moles/Vol] 25 mmol/L Normal 21-31 [facility] Comment on above: Performed By: #### L [id number] #### [facility] (BEAKER) [address] [place] [address] Creatinine [Mass/Vol] 0.93 mg/dL Normal 0.60-1.20 [facility] Comment on above: Performed By: #### L [id number] #### [facility] ([facility]) [address] [place] [address] GLOMERULAR FILTRATION RATE ML/MIN/1.73 SQ M.PREDICTED 63.3 mL/min/1.73m*2 Normal >60.0 [facility] Comment on above: Result Comment: The [facility]???s estimated glomerular filtration rate (eGFR) [...] individuals. Performed By: #### L [id number] #### [facility] ([facility]) [address] [place] [address] Glucose [Mass/Vol] 112 mg/dL High 70-100 [facility] Comment on above: Performed By: #### L [id number] #### [facility] ([facility]) [address] [place] [address] Potassium [Moles/Vol] 4.5 mmol/L Normal 3.5-5.1 [facility] Comment on above: Performed By: #### L [id number] #### [facility] ([facility]) [address] [place] [address] Sodium [Moles/Vol] 138 mmol/L Normal 136-145 [facility] Comment on above: Performed By: #### L [id number] #### [facility] ([facility]) [address] [place] [address] Urea nitrogen [Mass/Vol] 21 mg/dL Normal 7-25 [facility] Comment on above: Performed By: #### L [id number] #### [facility] ([facility]ER) [address] [place] [address] UREA NITROGEN/CREATININE (MASS RATIO) IN SER/PLAS 22.6 Normal [facility] Comment on above: Performed By: #### L [id number] #### [facility] ([facility]) [address] [place] [address] Anion gap [Moles/Vol] 10 mmol/L Normal 7-20 [facility] Comment on above: Performed By: #### L [id number] #### [facility] ([facility]) [address] [place] [address] Calcium [Mass/Vol] 9.1 mg/dL Normal 8.6-10.3 [facility] Comment on above: Performed By: #### L [id number] #### [facility] ([facility]ER) [address] [place] [address] Chloride [Moles/Vol] 106 mmol/L Normal 98-107 [facility] Comment on above: Performed By: #### L [id number] #### [facility] ([facility]) [address] [place] [address] CO2 [Moles/Vol] 26 mmol/L Normal 21-31 [facility] Comment on above: Performed By: #### L [id number] #### [facility] ([facility]) [address] [place] [address] Creatinine [Mass/Vol] 0.96 mg/dL Normal 0.60-1.20 [facility] Comment on above: Performed By: #### L [id number] #### [facility] ([facility]) [address] [place] [address] GLOMERULAR FILTRATION RATE ML/MIN/1.73 SQ M.PREDICTED 60.9 mL/min/1.73m*2 Normal >60.0 [facility] Comment on above: Result Comment: The [facility]???s estimated glomerular filtration rate (eGFR) [...] individuals. Performed By: #### L [id number] #### [facility] ([facility]) [address] [place] [address] Glucose [Mass/Vol] 126 mg/dL High 70-100 [facility] Comment on above: Performed By: #### L [id number] #### [facility] ([facility]) [address] [place] [address] Potassium [Moles/Vol] 4.2 mmol/L Normal 3.5-5.1 [facility] Comment on above: Performed By: #### L [id number] #### [facility] ([facility]) [address] [place] [address] Sodium [Moles/Vol] 138 mmol/L Normal 136-145 [facility] Comment on above: Performed By: #### L [id number] #### [facility] ([facility]) [address] [place] [address] Urea nitrogen [Mass/Vol] 22 mg/dL Normal 7-25 [facility] Comment on above: Performed By: #### L [id number] #### [facility] ([facility]) [address] [place] [address] UREA NITROGEN/CREATININE (MASS RATIO) IN SER/PLAS 22.9 Normal [facility] Comment on above: Performed By: #### L [id number] #### [facility] ([facility]) [address] [place] [address] CBCon 09-18-2023 Erythrocyte distribution width (RBC) [Ratio] 14.5 % Normal 11.5-15.0 [facility] Comment on above: Performed By: #### L [id number] #### [facility] ([facility]ER) [address] [place] [address] ERYTHROCYTE MEAN CORPUSCULAR HEMOGLOBIN CONCENTRATION (G/DL) BY AUTOMATED 32.1 g/dL Normal 32.0-35.0 [facility] Comment on above: Performed By: #### L [id number] #### [facility] [address] [place] [address] Hematocrit (Bld) [Volume fraction] 40.5 % Normal 36.0-48.0 [facility] Comment on above: Performed By: #### L [id number] #### [facility] [address] [place] [address] Hemoglobin (Bld) [Mass/Vol] 13.0 g/dL Normal 12.0-15.0 [facility] Comment on above: Performed By: #### L [id number] #### [facility] ([facility]) [address] [place] [address] MCH (RBC) [Entitic mass] 30.8 pg Normal 27.0-33.0 [facility] Comment on above: Performed By: #### L [id number] #### [facility] ([facility]) [address] [place] [address] MCV (RBC) [Entitic vol] 96.0 fL Normal 82.0-98.0 [facility] Comment on above: Performed By: #### L [id number] #### [facility] [address] [place] [address] PLATELETS (10*3/UL) IN BLOOD AUTOMATED COUNT 309 10*3/uL Normal 150-400 [facility] Comment on above: Performed By: #### L [id number] #### [facility] [address] [place] [address] RBC (Bld) [#/Vol] 4.22 10*6/uL Normal 3.80-5.00 [facility] Comment on above: Performed By: #### L [id number] #### [facility] [address] [place] [address] WBC (Bld) [#/Vol] 6.97 10*3/uL Normal 4.00-10.60 [facility] Comment on above: Performed By: #### L [id number] #### [facility] ([facility]) [address] [place] [address] CBC WITH AUTO DIFFERENTIALon 09-18-2023 Erythrocyte distribution width (RBC) [Ratio] 14.4 % Normal 11.5-15.0 [facility] Comment on above: Performed By: #### L [id number] #### [facility] ([facility]) [address] [place] [address] ERYTHROCYTE MEAN CORPUSCULAR HEMOGLOBIN CONCENTRATION (G/DL) BY AUTOMATED 33.0 g/dL Normal 32.0-35.0 [facility] Comment on above: Performed By: #### L [id number] #### [facility] ([facility]) [address] [place] [address] Hematocrit (Bld) [Volume fraction] 39.7 % Normal 36.0-48.0 [facility] Comment on above: Performed By: #### L [id number] #### [facility] ([facility]) [address] [place] [address] Hemoglobin (Bld) [Mass/Vol] 13.1 g/dL Normal 12.0-15.0 [facility] Comment on above: Performed By: #### L [id number] #### [facility] ([facility]) [address] [place] [address] MCH (RBC) [Entitic mass] 31.3 pg Normal 27.0-33.0 [facility] Comment on above: Performed By: #### L [id number] #### [facility] ([facility]) [address] [place] [address] MCV (RBC) [Entitic vol] 95.0 fL Normal 82.0-98.0 [facility] Comment on above: Performed By: #### L [id number] #### [facility] ([facility]) [address] [place] [address] NRBC (PER 100 WBCS) BY AUTOMATED COUNT 0.0 % Normal 0 [facility] Comment on above: Performed By: #### L [id number] #### [facility] ([facility]) [address] [place] [address] PLATELETS (10*3/UL) IN BLOOD AUTOMATED COUNT 301 10*3/uL Normal 150-400 [facility] Comment on above: Performed By: #### L [id number] #### [facility] ([facility]) [address] [place] [address] RBC (Bld) [#/Vol] 4.18 10*6/uL Normal 3.80-5.00 [facility] Comment on above: Performed By: #### L [id number] #### [facility] ([facility]) [address] [place] [address] WBC (Bld) [#/Vol] 6.49 10*3/uL Normal 4.00-10.60 [facility] Comment on above: Performed By: #### L [id number] #### [facility] ([facility]) [address] [place] [address] MAGNESIUMon 09-18-2023 Magnesium [Mass/Vol] 1.8 mg/dL Low 1.9-2.7 [facility] Comment on above: Performed By: #### L [id number] #### [facility] ([facility]) [address] [place] [address] MANUAL DIFFERENTIALon 2023 BASOPHILS (10*3/UL) IN BLOOD BY CALCULATION 0.01 10*3/uL Normal 0.00-0.20 [facility] Comment on above: Performed By: #### L [id number] ####[facility] ([facility])[address] [place] [address] BASOPHILS/100 LEUKOCYTES IN BLOOD BY AUTOMATED COUNT 0.2 % Normal 0.0-1.0 [facility] Comment on above: Performed By: #### L [id number] ####[facility] ([facility])[address] [place] [address] EOSINOPHILS (10*3/UL) IN BLOOD BY CALCULATION 0.00 10*3/uL Normal 0.00-0.50 [facility] Comment on above: Performed By: #### L [id number] ####[facility] ([facility])[address] [place] [address] EOSINOPHILS/100 LEUKOCYTES IN BLOOD BY AUTOMATED COUNT 0.0 % Normal 0.0-6.0 [facility] Comment on above: Performed By: #### L [id number] ####[facility] ([facility])[address] [place] [address] IMMATURE GRANULOCYTES (10*3/UL) IN BLOOD BY CALCULATION 0.02 10*3/uL Normal 0.00-0.20 [facility] Comment on above: Performed By: #### L [id number] ####[facility] ([facility])[address] [place] [address] IMMATURE GRANULOCYTES/100 LEUKOCYTES IN BLOOD BY AUTOMATED COUNT 0.3 % Normal 0.0-1.0 [facility] Comment on above: Performed By: #### L [id number] ####[facility] ([facility])[address] [place] [address] LYMPHOCYTES (10*3/UL) IN BLOOD BY CALCULATION 0.77 10*3/uL Low 1.20-4.00 [facility] Comment on above: Performed By: #### L [id number] ####[facility] ([facility])[address] [place] [address] LYMPHOCYTES/100 LEUKOCYTES IN BLOOD BY AUTOMATED COUNT 11.9 % Low 20.0-45.0 [facility] Comment on above: Performed By: #### L [id number] ####[facility] ([facility])[address] [place] [address] MONOCYTES (10*3/UL) IN BLOOD BY CALCUATION 0.36 10*3/uL Normal 0.10-1.00 [facility] Comment on above: Performed By: #### L [id number] ####[facility] ([facility])[address] [place] [address] MONOCYTES/100 LEUKOCYTES IN BLOOD BY AUTOMATED COUNT 5.5 % Normal 5.0-12.0 [facility] Comment on above: Performed By: #### L [id number] ####[facility] ([facility])[address] [address] NEUTROPHILS (10*3/UL) IN BLOOD BY CALCULATION 5.3 10*3/uL Normal 1.6-7.6 [facility] Comment on above: Performed By: #### L [id number] ####[facility] ([facility])[address] [place] [address] NEUTROPHILS/100 LEUKOCYTES IN BLOOD BY AUTOMATED COUNT 82.1 % High 40.0-72.0 [facility] Comment on above: Performed By: #### L [id number] ####[facility] ([facility])[address] [place] [address] 30on 09-17-2023 30 The patient is Moder ately Stable - Low risk of patient condition declining or worsening The patient's goals for the shift include COMFORT The clinical goals for the shift include VSS Problem: Pain - Adult Goal: Verbalizes/displays adequate comfort level or baseline comfort level Outcome: Progressing Problem: Safety - Adult Goal: Free from fall injury Outcome: Progressing Normal [facility] 30 The patient is Moder ately Stable - Low risk of patient condition declining or worsening The patient's goals for the shift include COMFORT The clinical goals for the shift include VSS Normal [facility] HPon 09-17-2023 HP H&P reviewed. The pa tient was examined and there are no changes to the H&P. Normal [facility] MRSA/MSSA DNA NASALon 2023 MRSA DNA Negative Normal Negative [facility] Comment on above: Order Comment: [...] preclude nasal colonization. Performed By: #### L [id number] ####[facility] (BEAKER)[address] [place] [address] MSSA DNA Negative Normal Negative [facility] Comment on above: Order Comment: [...] preclude nasal colonization. Performed By: #### L [id number] ####[facility] ([facility]ER)[address] [place] [address] OPNOTEon 09-17-2023 OPNOTE DAVINCI INCISIONAL H ERNIA REPAIR WITH MESH Operative Note Date: 09/17/2023 Location: [facility] OR Name: Judith Khan, : 1945, [...] Name Action Serial No. Mesh MESH,SURCIGAL,PROGRIP,[id number] - [id number] Implanted Staff: Hand Tufter: Angelic Conrad RN Relief Hand Tufter: Gay Barnard RN Scrub Person: Carola Chatman [...] was desuf (more content not included)... Normal [facility] POCT GLUCOSE METER UNSOLICIT ED RESULTSon 09-17-2023 Glucose [Mass/Vol] 71 mg/dL Normal 70-105 [facility] Comment on above: Order Comment: Waive d Testing in the ED is performed under the ED CLIA certificate #[id number]. Result Comment: jhag eman Performed By: #### L [id number] ####[facility] (BEAKER)[address] [place] [address] SUJEY BY IFA WITH REFLEXon Nuclear Ab Ql (S) Negative Normal Negative [facility] Comment on above: Order Comment: Speci men Type: BLOOD SPECIMENOrdering Facility: [facility] Address: [address] [place] [address] Result Comment: Anti -nuclear antibody test is used as an aid in diagnosis of systemic autoimmune diseases. Where positive and clinically warranted, follow-up using disease-specific testing is recommended. Low positive titers are not uncommon with advanced age, certain chronic infections, and malignancies among others. Test methodology: Indirect fluorescence immunoassay (IFA) using HEp-2 cells. Performed By: #### A NAIFR ####[facility] LABCLIA [id number] [place] [id number] [place] CBC W Auto Differential pane l (Bld)on 09-13-2023 Basophils (Bld) [#/Vol] 0.10 10*3/uL <0.11 k/uL [facility] Basophils/100 WBC (Bld) 1.3 % [facility] Differential cell count method Nom (Bld) Auto [facility] Eosinophils (Bld) [#/Vol] 0.67 10*3/uL High <0.46 k/uL [facility] Eosinophils/100 WBC (Bld) 8.4 % [facility] Erythrocyte distribution width (RBC) [Ratio] 14.1 % 11.5 - 15.0 % [facility] Hematocrit (Bld) [Volume fraction] 46.3 % High 36.0 - 46.0 % [facility] Hemoglobin (Bld) [Mass/Vol] 15.3 g/dL 11.5 - 15.5 g/dL [facility] Immature granulocytes (Bld) [#/Vol] <0.10 k/uL [facility] Immature granulocytes/100 WBC (Bld) 0.0 % [facility] Lymphocytes (Bld) [#/Vol] 3.14 10*3/uL 1.00 - 4.00 k/uL [facility] Lymphocytes/100 WBC (Bld) 39.3 % [facility] MCH (RBC) [Entitic mass] 31.4 pg 26.0 - 34.0 pg [facility] MCHC (RBC) [Mass/Vol] 33.0 g/dL 30.5 - 36.0 g/dL [facility] MCV (RBC) [Entitic vol] 94.9 fL 80.0 - 100.0 fL [facility] Monocytes (Bld) [#/Vol] 0.83 10*3/uL <0.87 k/uL [facility] Monocytes/100 WBC (Bld) 10.4 % [facility] Neutrophils (Bld) [#/Vol] 3.26 10*3/uL 1.45 - 7.50 k/uL [facility] Neutrophils/100 WBC (Bld) 40.6 % [facility] Nucleated RBC (Bld) [#/Vol] <0.01 k/uL [facility] Nucleated RBC/100 WBC (Bld) [Ratio] 0.0 /100 WBC [facility] Platelet mean volume (Bld) [Entitic vol] 11.7 fL 9.0 - 12.7 fL [facility] Platelets (Bld) [#/Vol] 296 10*3/uL 150 - 400 k/uL [facility] RBC (Bld) [#/Vol] 4.88 10*6/uL 3.90 - 5.2 0 m/uL [facility] WBC (Bld) [#/Vol] 8.00 10*3/uL 3.70 - 11.00 k/uL [facility] Basophils (Bld) [#/Vol] 0.10 10*3/uL Normal <0.11 [facility] Comment on above: Order Comment: Speci men Type: BLOOD SPECIMENOrdering Facility: [facility] Address: [address] [place] [address] Performed By: #### 5 7021-8, 4537-7 ####[facility] LABCLIA [id number] [place] [address] [place] Basophils/100 WBC (Bld) 1.3 % Normal [facility] Comment on above: Order Comment: Speci men Type: BLOOD SPECIMENOrdering Facility: [facility] Address: [address] [place] [address] Performed By: #### 5 7021-8, 4537-7 ####[facility] LABCLIA [id number] [place] [address] [place] Differential cell count method Nom (Bld) Auto Normal [facility] Comment on above: Order Comment: Speci men Type: BLOOD SPECIMENOrdering Facility: [facility] Address: [address] [place] [address] Performed By: #### 5 7021-8, 4537-7 ####[facility] LABCLIA [id number] [place] [address] [place] Eosinophils (Bld) [#/Vol] 0.67 10*3/uL High <0.46 [facility] Comment on above: Order Comment: Speci men Type: BLOOD SPECIMENOrdering Facility: [facility] Address: [address] [place] [address] Performed By: #### 5 7021-8, 4537-7 ####[facility] LABCLIA [id number] [place] [address] [place] Eosinophils/100 WBC (Bld) 8.4 % Normal [facility] Comment on above: Order Comment: Speci men Type: BLOOD SPECIMENOrdering Facility: [facility] Address: [address] [place] [address] Performed By: #### 5 7021-8, 4537-7 ####[facility] LABCLIA [id number] [place] [address] [place] Erythrocyte distribution width (RBC) [Ratio] 14.1 % Normal 11.5-15.0 [facility] Comment on above: Order Comment: Speci men Type: BLOOD SPECIMENOrdering Facility: [facility] Address: [address] [place] [address] Performed By: #### 5 7021-8, 4537-7 ####[facility] LABIA [id number] [place] [address] [place] Hematocrit (Bld) [Volume fraction] 46.3 % High 36.0-46.0 [facility] Comment on above: Order Comment: Speci men Type: BLOOD SPECIMENOrdering Facility: [facility] Address: [address] [place] [address] Performed By: #### 5 7021-8, 4537-7 ####[facility] [facility] LABIA [id number] [place] [address] [place] Hemoglobin (Bld) [Mass/Vol] 15.3 g/dL Normal 11.5-15.5 [facility] Comment on above: Order Comment: Speci men Type: BLOOD SPECIMENOrdering Facility: [facility] Address: [address] [place] [address] Performed By: #### 5 7021-8, 4536-7 ####[facility] LABCLIA [id number] [place] [address] [place] Immature granulocytes (Bld) [#/Vol] 10*3/uL Normal <0.10 [facility] Comment on above: Order Comment: Speci men Type: BLOOD SPECIMENOrdering Facility: [facility] Address: [address] [place] [address] Performed By: #### 5 7021-8, 4536-7 ####[facility] LABCLIA [id number] [place] [address] [place] Immature granulocytes/100 WBC (Bld) 0.0 % Normal [facility] Comment on above: Order Comment: Speci men Type: BLOOD SPECIMENOrdering Facility: [facility] Address: [address] [place] [address] Performed By: #### 5 7021-8, 4536-7 ####[facility] LABCLIA [id number] [place] [address] [place] Lymphocytes (Bld) [#/Vol] 3.14 10*3/uL Normal 1.00-4.00 [facility] Comment on above: Order Comment: Speci men Type: BLOOD SPECIMENOrdering Facility: [facility] Address: [address] [place] [address] Performed By: #### 5 7021-8, 7 ####[facility] LABCLIA [id number] [place] [address] [place] Lymphocytes/100 WBC (Bld) 39.3 % Normal [facility] Comment on above: Order Comment: Speci men Type: BLOOD SPECIMENOrdering Facility: [facility] Address: [address] [place] [address] Performed By: #### 5 7021-8, 4536-7 ####[facility] LABCLIA [id number] [place] [address] [place] MCH (RBC) [Entitic mass] 31.4 pg Normal 26.0-34.0 [facility] Comment on above: Order Comment: Speci men Type: BLOOD SPECIMENOrdering Facility: [facility] Address: [address] [place] [address] Performed By: #### 5 7021-8, 4537-7 ####[facility] LABIA [id number] [place] [address] [place] MCHC (RBC) [Mass/Vol] 33.0 g/dL Normal 30.5-36.0 [facility] Comment on above: Order Comment: Speci men Type: BLOOD SPECIMENOrdering Facility: [facility] Address: [address] [place] [address] Performed By: #### 5 7021-8, 4536-7 ####[facility] LABIA [id number] [place] [address] [place] MCV (RBC) [Entitic vol] 94.9 fL Normal 80.0-100.0 [facility] Comment on above: Order Comment: Speci men Type: BLOOD SPECIMENOrdering Facility: [facility] Address: [address] [place] [address] Performed By: #### 5 7021-8, 7-7 ####[facility] LABIA [id number] [place] [address] [place] Monocytes (Bld) [#/Vol] 0.83 10*3/uL Normal <0.87 [facility] Comment on above: Order Comment: Speci men Type: BLOOD SPECIMENOrdering Facility: [facility] Address: [address] [place] [address] Performed By: #### 5 7021-8, 7-7 ####[facility] LABIA [id number] [place] [address] [place] Monocytes/100 WBC (Bld) 10.4 % Normal [facility] Comment on above: Order Comment: Speci men Type: BLOOD SPECIMENOrdering Facility: [facility] Address: [address] [place] [address] Performed By: #### 5 7021-8, 7-7 ####[facility] LABCLIA [id number] [place] [address] [place] Neutrophils (Bld) [#/Vol] 3.26 10*3/uL Normal 1.45-7.50 [facility] Comment on above: Order Comment: Speci men Type: BLOOD SPECIMENOrdering Facility: [facility] Address: [address] [place] [address] Performed By: #### 5 7021-8, 4536-7 ####[facility] LABCLIA [id number] [place] [address] [place] Neutrophils/100 WBC (Bld) 40.6 % Normal [facility] Comment on above: Order Comment: Speci men Type: BLOOD SPECIMENOrdering Facility: [facility] Address: [address] [place] [address] Performed By: #### 5 7021-8, 4536-7 ####[facility] LABCLIA [id number] [place] [address] [place] Nucleated RBC (Bld) [#/Vol] 10*3/uL Normal <0.01 [facility] Comment on above: Order Comment: Speci men Type: BLOOD SPECIMENOrdering Facility: [facility] Address: [address] [place] [address] Performed By: #### 5 7021-8, 7-7 ####[facility] LABCLIA [id number] [place] [address] [place] Nucleated RBC/100 WBC (Bld) [Ratio] 0.0 /100 WBC Normal [facility] Comment on above: Order Comment: Speci men Type: BLOOD SPECIMENOrdering Facility: [facility] Address: [address] [place] [address] Performed By: #### 5 7021-8, 4537-7 ####[facility] LABIA [id number] [place] [address] [place] Platelet mean volume (Bld) [Entitic vol] 11.7 fL Normal 9.0-12.7 [facility] Comment on above: Order Comment: Speci men Type: BLOOD SPECIMENOrdering Facility: [facility] Address: [address] [place] [address] Performed By: #### 5 7021-8, 4537-7 ####[facility] LABIA [id number] [place] [address] [place] Platelets (Bld) [#/Vol] 296 10*3/uL Normal 150-400 [facility] Comment on above: Order Comment: Speci men Type: BLOOD SPECIMENOrdering Facility: [facility] Address: [address] [place] [address] Performed By: #### 5 7021-8, 4537-7 ####[facility] LABIA [id number] [place] [address] [place] RBC (Bld) [#/Vol] 4.88 10*6/uL Normal 3.90-5.20 [facility] Comment on above: Order Comment: Speci men Type: BLOOD SPECIMENOrdering Facility: [facility] Address: [address] [place] [address] Performed By: #### 5 7021-8, 4537-7 ####[facility] LABIA [id number] [place] [address] [place] WBC (Bld) [#/Vol] 8.00 10*3/uL Normal 3.70-11.00 [facility] Comment on above: Order Comment: Speci men Type: BLOOD SPECIMENOrdering Facility: [facility] Address: [address] [place] [address] Performed By: #### 5 7021-8, 4537-7 ####[facility] LABCLAMOR [id number] REDDFranky [place] [id number] [place] [facility] CNOVon 09-13-2023 CNOV Office Visit (NREUS2 ) JUDITH KHAN ([id number]) 1945 F Date Time Provider Department 09/13/23 [...] Row Office Visit from 09/13/2023 in [facility] T Score 39.8 Global [...] tablet by (more content not included)... Normal [facility] Comprehensive metabolic 2000 panelon 09-13-2023 Albumin [Mass/Vol] 4.3 g/dL 3.9 - 4.9 g/dL [facility] ALP [Catalytic activity/Vol] 92 U/L 34 - 123 U/L [facility] ALT [Catalytic activity/Vol] 14 U/L 7 - 38 U/L [facility] Anion gap [Moles/Vol] 13 mmol/L 9 - 18 mmol/L [facility] AST [Catalytic activity/Vol] 24 U/L 13 - 35 U/L [facility] Bilirubin [Mass/Vol] 0.3 mg/dL 0.2 - 1 .3 mg/dL [facility] Calcium [Mass/Vol] 11.0 mg/dL High 8.5 - 10. 2 mg/dL [facility] Chloride [Moles/Vol] 102 mmol/L 97 - 10 5 mmol/L [facility] CO2 [Moles/Vol] 25 mmol/L 22 - 30 mmol/L [facility] Creatinine [Mass/Vol] 0.95 mg/dL 0.58 - 0.96 mg/dL [facility] Estimated Glomerular Filtration Rate 62 mL/min/1.73m >=60 mL/min/1.73 m [facility] Glucose [Mass/Vol] 84 mg/dL 74 - 99 mg/dL [facility] Potassium [Moles/Vol] 4.0 mmol/L 3.7 - 5.1 mmol/L [facility] Protein [Mass/Vol] 6.7 g/dL 6.3 - 8.0 g/dL [facility] Sodium [Moles/Vol] 140 mmol/L 136 - 144 mmol/L [facility] Urea nitrogen [Mass/Vol] 20 mg/dL 7 - 21 mg/dL [facility] Albumin [Mass/Vol] 4.3 g/dL Normal 3.9-4.9 [facility] Comment on above: Order Comment: Speci men Type: BLOOD SPECIMENOrdering Facility: [facility] Address: [address] [place] [address] Performed By: #### 2 4323-8, 6-3 ####[facility] LABCLIA [id number] [place] [address] [place] ALP [Catalytic activity/Vol] 92 U/L Normal 34-123 [facility] Comment on above: Order Comment: Speci men Type: BLOOD SPECIMENOrdering Facility: [facility] Address: [address] [place] [address] Performed By: #### 2 4323-8, 6-3 ####[facility] LABCLIA [id number] [place] [address] [place] ALT [Catalytic activity/Vol] 14 U/L Normal 7-38 [facility] Comment on above: Order Comment: Speci men Type: BLOOD SPECIMENOrdering Facility: [facility] Address: [address] [place] [address] Performed By: #### 2 4323-8, 6-3 ####[facility] LABCLIA [id number] [place] [address] [place] Anion gap [Moles/Vol] 13 mmol/L Normal 9-18 [facility] Comment on above: Order Comment: Speci men Type: BLOOD SPECIMENOrdering Facility: [facility] Address: [address] [place] [address] Performed By: #### 2 4323-8, 6-3 ####[facility] LABCLIA [id number] [place] [address] [place] AST [Catalytic activity/Vol] 24 U/L Normal 13-35 [facility] Comment on above: Order Comment: Speci men Type: BLOOD SPECIMENOrdering Facility: [facility] Address: [address] [place] [address] Performed By: #### 2 4323-8, 3 ####[facility] LABCLIA [id number] [place] [address] [place] Bilirubin [Mass/Vol] 0.3 mg/dL Normal 0.2-1.3 [facility] Comment on above: Order Comment: Speci men Type: BLOOD SPECIMENOrdering Facility: [facility] Address: [address] [place] [address] Performed By: #### 2 4323-8, 3 ####[facility] LABCLIA [id number] [place] [address] [place] Calcium [Mass/Vol] 11.0 mg/dL High 8.5-10.2 [facility] Comment on above: Order Comment: Speci men Type: BLOOD SPECIMENOrdering Facility: [facility] Address: [address] [place] [address] Performed By: #### 2 4323-8, 6-3 ####[facility] LABCLIA [id number] [place] [address] [place] Chloride [Moles/Vol] 102 mmol/L Normal 97-105 [facility] Comment on above: Order Comment: Speci men Type: BLOOD SPECIMENOrdering Facility: [facility] Address: [address] [place], [place] [address] Performed By: #### 2 4323-8, 6-3 ####[facility] LABIA [id number] [place] [address] [place] CO2 [Moles/Vol] 25 mmol/L Normal 22-30 [facility] Comment on above: Order Comment: Speci men Type: BLOOD SPECIMENOrdering Facility: [facility] Address: [address] [place] [address] Performed By: #### 2 4323-8, 3015-3 ####[facility] LABIA [id number] [place] [address] [place] Creatinine [Mass/Vol] 0.95 mg/dL Normal 0.58-0.96 [facility] Comment on above: Order Comment: Speci men Type: BLOOD SPECIMENOrdering Facility: [facility] Address: [address] [place] [address] Performed By: #### 2 4323-8, 3 ####[facility] LABIA [id number] [place] [address] [place] Creatinine and Glomerular filtration rate.predicted panel (S/P/Bld) 62 mL/min/1.73m??? Normal >=60 [facility] Comment on above: Order Comment: Speci men Type: BLOOD SPECIMENOrdering Facility: [facility] Address: [address] [place] [address] Result Comment: Adrienne mated Glomerular Filtration Rate [...] accurately reflect actual GFR. Performed By: #### 2 4323-8, 6-3 ####[facility] LABIA [id number] [place] [address] [place] Glucose [Mass/Vol] 84 mg/dL Normal 74-99 [facility] Comment on above: Order Comment: Speci men Type: BLOOD SPECIMENOrdering Facility: [facility] Address: [address] [place] [address] Result Comment: The [place] Diabetes Association (ADA) provides guidance for cutoff [...] Standards of Medical Care in Diabetes 2016, [place] [employer]. Diabetes Care. 2016.39(Suppl 1). Performed By: #### 2 4323-8, 3015-3 ####[facility] LABCLIA [id number] [place] [address] [place] Potassium [Moles/Vol] 4.0 mmol/L Normal 3.7-5.1 [facility] Comment on above: Order Comment: Speci men Type: BLOOD SPECIMENOrdering Facility: [facility] Address: [address] [place] [address] Performed By: #### 2 4323-8, 3015-3 ####[facility] LABCLIA [id number] [place] [address] [place] Protein [Mass/Vol] 6.7 g/dL Normal 6.3-8.0 [facility] Comment on above: Order Comment: Speci men Type: BLOOD SPECIMENOrdering Facility: [facility] Address: [address] [place] [address] Performed By: #### 2 4323-8, 6-3 ####[facility] LABCLIA [id number] [place] [id number] [place] Sodium [Moles/Vol] 140 mmol/L Normal 136-144 [facility] Comment on above: Order Comment: Speci men Type: BLOOD SPECIMENOrdering Facility: [facility] Address: [address] [place], [place] [address] Performed By: #### 2 4323-8, 3016-3 ####[facility] LABCLIA [id number] [place] [address] [place] Urea nitrogen [Mass/Vol] 20 mg/dL Normal 7-21 [facility] Comment on above: Order Comment: Speci men Type: BLOOD SPECIMENOrdering Facility: [facility] Address: [address] [place] [address] Performed By: #### 2 4323-8, 3016-3 ####[facility] LABIA [id number] [place] [address] [place] ESR Westergren method (Bld) [Velocity]on 09-13-2023 ESR (Bld) [Velocity] 10 mm/h 0 - 20 mm/hr [facility] ESR (Bld) [Velocity] 10 mm/h Normal 0-20 [facility] Comment on above: Order Comment: Speci men Type: BLOOD SPECIMENOrdering Facility: [facility] Address: [address] [place] [address] Performed By: #### 5 7021-8, 4537-7 ####[facility] LABCLIA [id number] [place] [id number] [place] FOLATE SERUMon 09-13-2023 Folate [Mass/Vol] >4.7 ng/mL [facility] Folate SerPl-mCncon 09-13-19 Folate [Mass/Vol] ng/mL Normal >4.7 [facility] Comment on above: Order Comment: Speci men Type: BLOOD SPECIMENOrdering Facility: [facility] Address: [address] [place] [address] Result Comment: A re sult of > 20 ng/mL is not necessarily indicative of a pathologic or treatable condition: it reflects a limitation of the test methodology. Assay reference range: 4.8 to 24.2 ng/mL. Suitable for detection of folate deficiency. Reference: Folate III (Folate III) [package insert V 1.0 Mongolian]. Anitra [employer], [place], [place]: April 2015. Performed By: #### 2 885-2, 2132-9, 2284-8 ####[facility] [id number] [place] [address] [place] HOMOCYSTEINEon 09-13-2023 Homocysteine [Moles/Vol] 11.3 umol/L <15.1 umol/L [facility] HbA1c (Bld)on 09-13-2023 Average glucose Estimated from glycated hemoglobin (Bld) [Mass/Vol] 103 mg/dL [facility] HbA1c (Bld) [Mass fraction] 5.2 % 4.3 - 5.6 % [facility] Average glucose Estimated from glycated hemoglobin (Bld) [Mass/Vol] 103 mg/dL Normal [facility] Comment on above: Order Comment: Mery goodwin Type: BLOOD SPECIMENOrdering Facility: [facility] Address: [address] [place] [address] Result Comment: eAG: (Estimated average glucose) is a calculated value from HgbA1c and is petroleum products sales representative of the average blood glucose level in the last 2-3 month period. Performed By: #### 5 5454-3 ####[facility] LABIA [id number] [place] [address] [place] HbA1c (Bld) [Mass fraction] 5.2 % Normal 4.3-5.6 [facility] Comment on above: Order Comment: Mery goodwin Type: BLOOD SPECIMENOrdering Facility: [facility] Address: [address] [place] [address] Result Comment: Elisa ican Diabetes Association guidelines indicate that patients with HgbA1c in the range 5.7-6.4% are at increased risk for development of diabetes, and intervention by lifestyle modification may be beneficial. HgbA1c greater or equal to 6.5% is considered diagnostic of diabetes. Performed By: #### 5 5454-3 ####[facility] LABCLIA [id number] [place] [address] [place] Hcys SerPl-sCncon 09-13-2023 Homocysteine [Moles/Vol] 11.3 umol/L Normal <15.1 [facility] Comment on above: Order Comment: Speci men Type: BLOOD SPECIMENOrdering Facility: [facility] Address: [address] [place] [address] Performed By: #### 1 3965-9 ####[facility] LABIA [id number] [place] [address] [place] Methylmalonate SerPl-sCncon 09-13-2023 Methylmalonate [Moles/Vol] 0.19 umol/L Normal <=0.40 [facility] Comment on above: Order Comment: Speci [facility] Type: BLOOD SPECIMENOrdering Facility: [facility] Address: [address] [place] [address] Result Comment: This test was developed and its performance characteristics determined by [facility]'s [facility] Pathology and Laboratory Medicine [place] (-[facility]). It has not been cleared or approved by the FDA. -[facility] is regulated under CLIA as qualified to perform high-complexity testing. This test is used for clinical purposes. It should not be regarded as investigational or for research. Performed By: #### 1 3964-2 ####[facility] LABIA [id number] [place] [address] [place] PROTEIN ELECTROPHORESIS SERU M (P)on 09-13-2023 Albumin [Mass/Vol] 4.07 g/dL Normal 3.43-5.41 [facility] Comment on above: Order Comment: Speci men Type: BLOOD SPECIMENOrdering Facility: [facility] Address: [address] [place] [address] Performed By: #### L [id number] ####[facility] LABIA [id number] [place] [address] [place] Alpha 1 globulin Elph [Mass/Vol] 0.37 g/dL Normal 0.18-0.43 [facility] Comment on above: Order Comment: Speci men Type: BLOOD SPECIMENOrdering Facility: [facility] Address: [address] [place] [address] Performed By: #### L [id number] ####[facility] LABCLIA [id number] [place] [address] [place] Alpha 2 globulin Elph [Mass/Vol] 0.70 g/dL Normal 0.42-0.98 [facility] Comment on above: Order Comment: Speci men Type: BLOOD SPECIMENOrdering Facility: [facility] Address: [address] [place] [address] Performed By: #### L [id number] ####[facility] LABCLIA [id number] [place] [address] [place] Beta globulin Elph [Mass/Vol] 0.69 g/dL Normal 0.61-1.17 [facility] Comment on above: Order Comment: Speci men Type: BLOOD SPECIMENOrdering Facility: [facility] Address: [address] [place] [address] Performed By: #### L [id number] ####[facility] LABCLIA [id number] [place] [address] [place] Gamma globulin Elph [Mass/Vol] 0.57 g/dL Normal 0.53-1.51 [facility] Comment on above: Order Comment: Speci men Type: BLOOD SPECIMENOrdering Facility: [facility] Address: [address] [place] [address] Performed By: #### L [id number] ####[facility] LABCLIA [id number] [place] [address] [place] M-PROTEIN LOCATION Normal [facility] Comment on above: Order Comment: Speci men Type: BLOOD SPECIMENOrdering Facility: [facility] Address: [address] [place] [address] Result Comment: Not Applicable. Performed By: #### L [id number] ####[facility] [id number] [address] [place] Protein Fractions [Interp] No definitive M protein is identified on protein electrophoresis. Normal No definitive M protein is identified on protein electrophor esis. [facility] Comment on above: Order Comment: Speci men Type: BLOOD SPECIMENOrdering Facility: [facility] Address: [address] [place] [address] Performed By: #### L [id number] ####[facility] [id number] [place] [address] [place] Protein.monoclonal Elph [Mass/Vol] 0.00 g/dL Normal <=0.00 [facility] Comment on above: Order Comment: Speci men Type: BLOOD SPECIMENOrdering Facility: [facility] Address: [address] [place] [address] Performed By: #### L [id number] ####[facility] [id number] [place] [address] [place] SPE STAFF REVIEW Reviewed by Dr. Lelo Santiago MD [facility] Comment on above: Order Comment: Speci men Type: BLOOD SPECIMENOrdering Facility: [facility] Address: [address] [place] [address] Performed By: #### L [id number] ####[facility] [id number] [place] [address] [place] Prot SerPl-mCncon 09-13-2023 Protein [Mass/Vol] 6.4 g/dL Normal 6.3-8.0 [facility] Comment on above: Order Comment: Speci men Type: BLOOD SPECIMENOrdering Facility: [facility] Address: [address] [place] [address] Performed By: #### 2 885-2, 2132-9, 2284-8 ####[facility] LABIA [id number] [place] [address] [place] Prot Ur-mCncon 09-13-2023 Protein (U) [Mass/Vol] 6 mg/dL Normal 0-20 [facility] Comment on above: Order Comment: Speci men Type: URINE SPECIMENOrdering Facility: [facility] Address: [address] [place] [address] Performed By: #### 2 888-6 ####[facility] LABIA [id number] [place] [address] [place] TSH BLDon 09-13-2023 TSH Qn 0.911 m[IU]/L 0.270 - 4.200 mIU/L [facility] TSH SerPl-aCncon 09-13-2023 TSH Qn 0.911 m[IU]/L Normal 0.270-4.200 [facility] Comment on above: Order Comment: Speci men Type: BLOOD SPECIMENOrdering Facility: [facility] Address: [address] [place] [address] Performed By: #### 2 4323-8, 3016-3 ####[facility] LABIA [id number] [place] [address] [place] URINE PROTEIN ELECTROPHORESI S RANDOM (P)on 09-13-2023 Albumin Elph (U) [Mass fraction] 42.54 % Normal [facility] Comment on above: Order Comment: Speci men Type: URINE SPECIMENOrdering Facility: [facility] Address: [address] [place] [address] Performed By: #### L [id number] ####[facility] LABIA [id number] [place] [address] [place] Alpha 1 globulin Elph (U) [Mass fraction] 5.38 % Normal [facility] Comment on above: Order Comment: Speci men Type: URINE SPECIMENOrdering Facility: [facility] Address: [address] [place] [address] Performed By: #### L [id number] ####[facility] LABIA [id number] [place] [address] [place] Alpha 2 globulin Elph (U) [Mass fraction] 16.91 % Normal [facility] Comment on above: Order Comment: Speci men Type: URINE SPECIMENOrdering Facility: [facility] Address: [address] [place] [address] Performed By: #### L [id number] ####[facility] LABIA [id number] [place] [address] [place] Beta globulin Elph (U) [Mass fraction] 24.59 % Normal [facility] Comment on above: Order Comment: Speci men Type: URINE SPECIMENOrdering Facility: [facility] Address: [address] [place] [address] Performed By: #### L [id number] ####[facility] LABIA [id number] [place] [address] [place] Gamma globulin Elph (U) [Mass fraction] 10.58 % Normal [facility] Comment on above: Order Comment: Speci men Type: URINE SPECIMENOrdering Facility: [facility] Address: [address] [place] [address] Performed By: #### L [id number] ####[facility] LABIA [id number] [place] [address] [place] INTERPRETATION COMMENT FOR PROTEIN ELECTROPHORESIS The absence of M-protein on urine protein electrophoresis does not entirely exclude the presence of monoclonal gammopathy in urine. Monoclonal protein analysis (immunofixation), a more definitive test to exclude monoclonal gammopathy, may be requested on this specimen if clinically indicated. Normal [facility] Comment on above: Order Comment: Speci men Type: URINE SPECIMENOrdering Facility: [facility] Address: [address] [place] [address] Performed By: #### L [id number] ####[facility] LABCLIA [id number] [place] [address] [place] Protein Fractions Elph Brandt (U) [Interp] No definitive M protein is identified on protein electrophoresis. Normal No definitive M protein is identified on protein electrophor esis. [facility] Comment on above: Order Comment: Speci men Type: URINE SPECIMENOrdering Facility: [facility] Address: [address] [place] [address] Performed By: #### L [id number] ####[facility] LABIA [id number] OF [facility] STAFF REVIEW (URINE ELECTRO) Reviewed by Dr. Richard Santiago MD Normal [facility] Comment on above: Order Comment: Speci men Type: URINE SPECIMENOrdering Facility: [facility] Address: [address] [place] [address] Performed By: #### L [id number] ####[facility] [id number] [place] [address] [place] VITAMIN B12 BLOODon 09-13-19 24 Cobalamin (Vitamin B12) [Mass/Vol] 939 pg/mL 232 - 1,245 pg/mL [facility] Vit B12 SerPl-mCncon 024 Cobalamin (Vitamin B12) [Mass/Vol] 939 pg/mL Normal 232-1245 [facility] Comment on above: Order Comment: Speci men Type: BLOOD SPECIMENOrdering Facility: [facility] Address: [address] [place] [address] Performed By: #### 2 885-2, 2132-9, 2284-8 ####[facility] LABIA [id number] [place] [address] [place] Orders Onlyon 09-11-2023 Orders Only [id number] Ira Khan 1945 F Date Provider Department Center 09/11/2023 VERENA TANNER [facility] UTCF Family History Problem Relation Age of Onset Stroke Mother Stroke Brother Other Mother's Sister Coronary artery disease Mother's Sister Stroke Maternal Grandmother Family Status - Relation Status Age at Mother Brother Mother's Sister Maternal Grandmother Normal [facility] [id number] 09-10-2023 [id number] PT HOLDING ASPIRIN P ER DR SHEEHAN ON 09/09 MEDICATIONS TO TAKE DAY OF SURGERY WITH SIP OF WATER XANAX AMLODIPINE GABAPENTIN ISOSORBIDE PROTONIX PT DAUGHTER AGREES TO TAKE PT TO [facility] FOR LABS ON 09/10 LAB ORDERS FAXED TO [phone] HOLD VITAMINS AND SUPPLEMENTS 5 DAYS PRIOR TO PROCEDURE HOLD ALL ANTI INFLAMMATORIES ETC:MOTRIN, ADVIL, ALEVE, FOR 5 DAYS PRIOR TO PROCEDURE IF YOU ARE GOING HOME AFTER YOUR SURGERY OR PROCEDURE, FOR YOUR SAFETY, YOUR SURGERY WILL BE CANCELLED IF BOTH OF THE FOLLOWING ARE NOT AVAILABLE: 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 Do not wear perfume, make-up, nail lebanese, or lotions on the day of your [...] need to make any changes, please call [phone]. Notify your surgeon if you develop any illness such as a cold, cough, fever, sore throat or vomiting between now and your surgery. Thank you for entrusting us with your care. [facility] Surgical Services Team Normal [facility] Telephoneon 09-10-2023 Telephone [id number] Ira Khan en A 1945 F Date Provider Department Center 09/10/2023 KERWIN ABDI [facility] SURG Second Fl Family History Problem Relation Age of Onset Stroke Mother Stroke Brother Other Mother's Sister Coronary artery disease Mother's Sister Stroke Maternal Grandmother Family Status - Relation Status Age at Mother Brother Mother's Sister Maternal Grandmother Reason for Visit and Comments: telephone [Other] Normal [facility] Documentationon 08-27-2023 Documentation [id number] Ira Khan en A 1945 Date Provider Department Center 08/27/2023 MILA SORIA Ratna Family History Problem Relation Age of Onset Stroke Mother Stroke Brother Other Mother's Sister Coronary artery disease Mother's Sister Stroke Maternal Grandmother Family Status - Relation Status Age at Mother Brother Mother's Sister Maternal Grandmother [facility] HPon 08-22-2023 HP Subjective Patient ID: [...] time. (ESOPHAGOGASTRODUODENOSCOPY) Operative Note Date: 08/13/2023 Location: [facility] OR Name: Judith Khan, : 1945, Diagnosis Pre-op Diagnosis * Hiatal hernia [K44.9] Post-op Diagnosis * Chronic gastric ulcer without hemorrhage and without perforation [K25.7] Procedures EGD (ESOPHAGOGASTRODUODENOSCOPY) 04373 - [facility] ESOPHAGOGASTRODUODENOSCOPY [facility] Surgeons * Verena Sheehan - Primary Procedure Summary Anesthesia: Monitor Anesthesia Care ASA: III Estimated Blood Loss: Minimal Total IV Fluids: 500 mL Drains: * None in log * Staff: Hand Tufter: Jian Kat RN Scrub Person: Eva Zambrano [...] NOTE Patient: Judith Khan : 1945 Facility: [facility] Referring/PCP: Rodrick Sams MD Procedure: Esophagogastroduodenoscopy --diagnostic Date: 08/13/2023 [...] 1. -Follow up with me. 2. -PPIs [phone] pager [phone] Assessment/Plan Incisional hernia Gastric ulcer Robotic incisional hernia repair with mesh Cardiac clearance PPIs No diagnosis found. No orders of the defined types were placed in this encounter. No results found for this or any previous visit (from the past 36 hour(s)). No follow-ups on file. Normal [facility] Office Visiton 08-22-2023 Follow-up visit [id number] Ira Khan 1945 F Date Provider Department Center 08/22/2023 454-VERENA SHEEHAN [facility] SURG Second Fl Family History Problem Relation Age of Onset Stroke Mother Stroke Brother Other Mother's Sister Coronary artery disease Mother's Sister Stroke Maternal Grandmother Family Status - Relation Status Age at Mother Brother Mother's Sister Maternal Grandmother Level of Service:25979 [facility] OFFICE/OUTPATIENT ESTABLISHED MOD MDM 30 MIN Reason for Visit and Comments: Post-op [483] - Judith is here today for a post op visit for a hiatal hernia, s/p 08/13/[address] Normal [facility] MR head/brain wo/w conon MR head/brain wo/w con [facility] [place] [address] [place] [address] MRI Report Signed Patient: Judith Khan MR#: [id number] 320 : 1945 Acct:[id number] Age/Sex: 78 / F ADM Date: 08/14/23 Loc: [facility] Room: Type: [facility] Attending Dr: Giovanni COLIN Copies to: DIXIE [...] Guerrero Jr., D.ORatna08/14/2023 3:44 PM Dictation Location: [place] [address] Transcribed By: [facility] 08/14/23 8818 Dictated By: Ramsey Guerrero Jr, DO 08/14/23 1536 Signed By: 08/14/[address] [facility] [address] ABDOMEN WO IV CONTRASTon 08-13-2023 [...] Ernie Guerin. Not Vldtd Invalid Interpretation Code [facility] Comment on above: Order Comment: With oral contrast OPNOTEon 08-13-2023 OPNOTE EGD (ESOPHAGOGASTRODUODENOSCOPY) Operative Note Date: 08/13/2023 Location: [facility] OR Name: Judith Khan, : 1945, Diagnosis Pre-op Diagnosis * Hiatal hernia [K44.9] Post-op Diagnosis * Chronic gastric ulcer without hemorrhage and without perforation [K25.7] Procedures EGD (ESOPHAGOGASTRODUODENOSCOPY) 38863 - [place] ESOPHAGOGASTRODUODENOSCOPY [facility] Surgeons * Verena Sheehan - Primary Procedure Summary Anesthesia: Monitor Anesthesia Care ASA: III Estimated Blood Loss: Minimal Total IV Fluids: 500 mL Drains: * None in log * Staff: Hand Tufter: Jian Kat RN Scrub Person: Eva Zambrano [...] NOTE Patient: Judith Khan : 1945 Facility: [facility] Referring/PCP: Rodrick Sams MD Procedure: Esophagogastroduodenoscopy --diagnostic Date: 08/13/2023 [...] particles Recommendations: 1. -Follow up with me. [phone] pager [phone] Normal [facility] OPNOTE EGD (ESOPHAGOGASTRODUODENOSCOPY) Operative Note Date: 08/13/2023 Location: [facility] OR Name: Judith Khan, : 1945, Diagnosis Pre-op Diagnosis * Hiatal hernia [K44.9] Post-op Diagnosis * Chronic gastric ulcer without hemorrhage and without perforation [K25.7] Procedures EGD (ESOPHAGOGASTRODUODENOSCOPY) 36327 - [place] ESOPHAGOGASTRODUODENOSCOPY [facility] Surgeons * Verena Sheehan - Primary Procedure Summary Anesthesia: Monitor Anesthesia Care ASA: III Estimated Blood Loss: Minimal Total IV Fluids: 500 mL Drains: * None in log * Staff: Hand Tufter: Jian Kat RN Scrub Person: Eva Zambrano [...] NOTE Patient: Judith Khan : 1945 Facility: [facility] Referring/PCP: Rodrick Sams MD Procedure: Esophagogastroduodenoscopy --diagnostic Date: 08/13/2023 [...] 1. -Follow up with me. 2. -PPIs [phone] pager [phone] Normal [facility] POCT GLUCOSE METER UNSOLICIT ED RESULTSon 08-13-2023 Glucose [Mass/Vol] 85 mg/dL Normal 70-105 [facility] Comment on above: Order Comment: Waive d Testing in the ED is performed under the ED CLIA certificate #[id number]. Result Comment: [facility] Performed By: #### L [id number] #### [facility] [address] [place] [address] Office Visiton 08-07-2023 Follow-up visit [id number] Ira Khan 1945 F Date Provider Department Center 08/07/2023 VERENA TANNER [facility] SURG Second Fl Family History Problem Relation Age of Onset Stroke Mother Stroke Brother Other Mother's Sister Coronary artery disease Mother's Sister Stroke Maternal Grandmother Family Status - Relation Status Age at Mother Brother Mother's Sister Maternal Grandmother Level of Service:48099 [facility] OFFICE/OUTPATIENT NEW LOW MDM 30 MINUTES Reason for Visit and Comments: New Patient [632] - Judith is here as a new patient for hiatal hernia, s/p ecko Normal [facility] C Urineon 07-18-2023 Bacteria identified [...] test was performed at: [facility], [address] [place] [address], [address] , , [facility] Comment on above: Performed By: #### 2 [id number], [id number] #### [facility] [address] [place] [address] BMPon 07-16-2023 Anion gap [Moles/Vol] 14 mmol/L Normal 6-16 [facility] Comment on above: Performed By: #### 2 407073, [id number] #### [facility] [address] [place] [address] BUN/Creat Ratio 22 No Units High 10-20 [facility] Comment on above: Performed By: #### 2 876183, [id number] #### [facility] [address] [place] [address] Calcium [Mass/Vol] 11.6 mg/dL High 8.9-11.1 [facility] Comment on above: Performed By: #### 2 269136, [id number] #### [facility] [address] [place] [address] Chloride [Moles/Vol] 105 mmol/L Normal 101-111 [facility] Comment on above: Performed By: #### 2 173204, [id number] #### [facility] [address] [place] [address] CO2 [Moles/Vol] 26 mmol/L Normal 21-31 [facility] Comment on above: Performed By: #### 2 592805, [id number] #### [facility] [address] [place] [address] Creatinine [Mass/Vol] 0.9 mg/dL Normal 0.5-1.3 [facility] Comment on above: Performed By: #### 2 997130, [id number] #### [facility] [address] [place] [address] Glucose [Mass/Vol] 87 mg/dL Normal 55-199 [facility] Comment on above: Performed By: #### 2 055992, [id number] #### [facility] [address] [place] [address] Potassium [Moles/Vol] 4.0 mmol/L Normal 3.5-5.3 [facility] Comment on above: Performed By: #### 2 141696, [id number] #### [facility] [address] [place] [address] Sodium [Moles/Vol] 141 mmol/L Normal 135-145 [facility] Comment on above: Performed By: #### 2 695947, [id number] #### [facility] [address] [place] [address] Urea nitrogen [Mass/Vol] 20 mg/dL Normal 5-21 [facility] Comment on above: Performed By: #### 2 224396, [id number] #### [facility] [address] [place] [address] CBC w/ Auto Diffon 4 Basophil Absolute 0.1 E9/L Normal 0.0-0.2 [facility] Comment on above: Performed By: #### 2 489737, [id number] #### [facility] [address] [place] [address] Basophils/100 WBC (Bld) 1.1 % Normal 0.0-2.0 [facility] Comment on above: Performed By: #### 2 674478, [id number] #### [facility] [address] [place] [address] Eos Absolute 0.2 E9/L Normal 0.0-0.5 [facility] Comment on above: Performed By: #### 2 803336, [id number] #### [facility] [address] [place] [address] Eosinophils/100 WBC (Bld) 1.7 % Normal 0.0-8.0 [facility] Comment on above: Performed By: #### 2 153715, [id number] #### [facility] [address] [place] [address] Erythrocyte distribution width (RBC) [Ratio] 13.5 % Normal 10.9-14.2 [facility] Comment on above: Performed By: #### 2 356821, [id number] #### [facility] [address] [place] [address] Hematocrit (Bld) [Volume fraction] 43.0 % Normal 34.0-46.0 [facility] Comment on above: Performed By: #### 2 118703, [id number] #### [facility] [address] [place] [address] Hemoglobin (Bld) [Mass/Vol] 14.3 g/dL Normal 12.0-16.0 [facility] Comment on above: Performed By: #### 2 613942, [id number] #### [facility] [address] [place] [address] Lymph Absolute 3.4 E9/L Normal 1.0-4.0 [facility] Comment on above: Performed By: #### 2 737793, [id number] #### [facility] [address] [place] [address] Lymphocytes/100 WBC (Bld) 38.0 % Normal 14.0-50.0 [facility] Comment on above: Performed By: #### 2 472849, [id number] #### [facility] [address] [place] [address] MCH (RBC) [Entitic mass] 30.9 pg Normal 27.0-34.0 [facility] Comment on above: Performed By: #### 2 344030, [id number] #### [facility] [address] [place] [address] MCHC (RBC) [Mass/Vol] 33.0 g/dL Normal 31.4-36.0 [facility] Comment on above: Performed By: #### 2 424963, [id number] #### [facility] [address] [place] [address] MCV (RBC) [Entitic vol] 93.5 fL Normal 80.0-100.0 [facility] Comment on above: Performed By: #### 2 510636, [id number] #### [facility] [address] [place] [address] Freeborn Absolute 1.2 E9/L High 0.2-1.0 [facility] Comment on above: Performed By: #### 2 175603, [id number] #### [facility] [address] [place] [address] Monocytes/100 WBC (Bld) 12.9 % Normal 4.0-14.0 [facility] Comment on above: Performed By: #### 2 225697, [id number] #### [facility] [address] [place] [address] Neutro Absolute 4.2 E9/L Normal 2.0-7.5 [facility] Comment on above: Performed By: #### 2 187015, [id number] #### [facility] [address] [place] [address] Neutro Auto 46.3 % Normal 36.0-75.0 [facility] Comment on above: Performed By: #### 2 240442, [id number] #### [facility] [address] [place] [address] Platelet 325.0 E9/L Normal 150.0-500.0 [facility] Comment on above: Performed By: #### 2 387038, [id number] #### [facility] [address] [place] [address] Platelet mean volume (Bld) [Entitic vol] 9.3 fL Normal 6.4-10.8 [facility] Comment on above: Performed By: #### 2 124454, [id number] #### [facility] [address] [place] [address] RBC 4.6 E12/L Normal 4.3-5.9 [facility] Comment on above: Performed By: #### 2 927130, [id number] #### [facility] [address] [place] [address] WBC 9.0 E9/L Normal 4.0-11.0 [facility] Comment on above: Performed By: #### 2 531100, [id number] #### [facility] [address] [place] [address] CHEMISTRYOrdered By: SYSTEM SYSTEM on 07-16-2023 Troponin [...] Sensitivity Troponin I Instructions For Use, [email or web address], January 2018) Urea nitrogen [Mass/Vol] 20 mg/dL Normal 5 - 21 mg/dL Remisol Chem Urea nitrogen/Creatinine [Mass ratio] 22 mg/mg High 10 - 20 Remisol Chem Consent for Treatmenton Consent for Treatment [id number] Normal [facility] Discharge Instructionson Discharge Instructions [id number] Normal [facility] ED Clinical Summaryon 2023 ED Clinical Summary (Inserted Image. Jenni ble to display) [place] [id number] ED Clinical Summary Person Information Name: JUDITH KHAN [facility] Age: 78 Years : 1945 Sex: Female Language: Mongolian PCP: Rodrick Sams MD Marital Status: Visit [...] 15:44:31 07/16/2023 15:44:31 07/16/2023 15:44:31 ADDRESS: [address] [place] [id number] PHYS DOC NOTES: MEDICAL INFORMATION: Prescriptions Given: [...] Follow up: With: Address: When: Rodrick Sams [address] [place] [address], [place] [address] Business (1) In 3 days 07/19/2023 DIAGNOSIS: Weakness Normal [facility] ED Note-Physicianon 07-16-19 ED Note-Physician Basic Information [...] Rodrick Sams In 3 days 07/19/2023 EST [facility] Business (1) Additional Instructions: Patient Education [...] made to ensure accuracy, however, inadvertently computerized uat tester mistakes may be present. Appropriate healthcare PPE [...] 11:50:00) MC (more content not included)... Normal [facility] Comment on above: Result Comment: Elec tronically [...] Consider working with a physical therapist or monkey trainer who can develop an exercise plan to help you gain muscle strength. General instructions ? Take ssui-knl-omksxjn and prescription medicines only as told by [...] Reviewed: 04/30/2022 Elsevier Patient Education ? 2022 [employer] Normal [facility] ED Patient Summaryon 024 ED Patient Summary (Inserted Image. Jenni ble to display) [place] [id number] Patient Discharge Instructions Person Information Name: JUDITH KHAN Age: 78 Years Arrival Date: 07/16/2023 11:33:16 Discharge Diagnosis: Weakness Primary Care Physician: Rodrick Sams MD Provider Information Primary Provider: Demarco Beaver DO Advanced Fuse Coiler:Leighton Fernandes PA-C The exam and treatment you received in the Emergency Department were for an urgent problem and are not intended as complete care. It is important that you follow up with a doctor, nurse practitioner, or physician?s senior office support assistant sosa for ongoing care. If your symptoms become worse or you do not improve as expected and you are unable to reach your usual health care provider, you should return to the Emergency Department. We are available 24 hours a day. JUDITH KHAN has been given the following list of patient education materials, prescriptions and follow-up instructions: Follow-up Instructions: With: Address: When: Rodrick Sams [address] [place] [address], [facility] [place] [id number] [facility] (1) In 3 days 07/19/2023 In the event that this physician does not participate in your insurance network, please consult with your insurance company to find a nearby participating provider. Patient Education Materials: Weakness A MESSAGE TO ALL PATIENTS REGARDING OPIOIDS PRESCRIPTION OPIOIDS: WHAT YOU NEED TO KNOW Prescription opioids can be used to help relieve rgarufet-ei-fdacrc pain and are often prescribed following a [...] be struggling with addiction, tell your health in home caregiver and ask for guidance or call [facility] National Helpline at 3-957-794-HELP. v Source: [place] Department of Health a (more content not included)... Normal [facility] HEMATOLOGYOrdered By: SYSTEM SYSTEM on 07-16-2023 Basophil [...] Normal 80.0 - 100.0 fL Remisol Heme Freeborn Absolute 1.2 E9/L High 0.2 - 1.0 [...] Hr.on 07-16-2023 Troponin 21.20 pg/mL Normal 10.10-27.10 [facility] Comment on above: Result Comment: The 95% CI (Confidence Interval) PPV (Positive Predictive Value) for myocardial infarction in females is 38 pg/mL, in males 51 pg/mL. The results should be used in conjunction with clinical conditions of myocardial infarction. (Access High Sensitivity Troponin I Instructions For Use, [employer], January 2018) Performed By: #### 2 011226, [id number] #### [facility] [address] [place] [address] Troponin 3 Hr.on 07-16-2023 Troponin 19.60 pg/mL Normal 10.10-27.10 [facility] Comment on above: Result Comment: The 95% CI (Confidence Interval) PPV (Positive Predictive Value) for myocardial infarction in females is 38 pg/mL, in males 51 pg/mL. The results should be used in conjunction with clinical conditions of myocardial infarction. (Access High Sensitivity Troponin I Instructions For Use, [employer], January 2018) Performed By: #### 1 [id number] #### [facility] [address] [place] [address] UA With Cult Reflexon 2023 Bacteria LM Ql (Urine sed) TRACE Normal Trace [facility] Comment on above: Performed By: #### 2 345631, [id number] #### [facility] [address] [place] [address] Bilirubin Ql (U) Negative Normal Negative [facility] Comment on above: Performed By: #### 2 065885, [id number] #### [facility] [address] [place] [address] Clarity (U) CLEAR Normal Clear [facility] Comment on above: Performed By: #### 2 613143, [id number] #### [facility] [address] [place] [address] Color (U) YELLOW Normal Yellow [facility] Comment on above: Performed By: #### 2 124417, [id number] #### [facility] [address] [place] [address] Crystals LM Ql (Urine sed) Present Normal [facility] Comment on above: Performed By: #### 2 222366, [id number] #### [facility] [address] [place] [address] Epithelial cells.squamous LM.HPF (Urine sed) [#/Area] 0-2 Normal 0-2 [facility] Comment on above: Performed By: #### 2 [id number], [id number] #### [facility] [address] [place] [address] Glucose Test strip (U) [Mass/Vol] Negative Normal Negative [facility] Comment on above: Performed By: #### 2 237266, [id number] #### [facility] [address] [place] [address] Hemoglobin Ql (U) Negative Normal Negative [facility] Comment on above: Performed By: #### 2 462572, [id number] #### [facility] [address] [place] [address] Ketones (U) [Mass/Vol] Negative Normal Negative [facility] Comment on above: Performed By: #### 2 116118, [id number] #### [facility] [address] [place] [address] [place]heim.plasma/Lithi um.RBC (Bld) [Mass ratio] 0-3 Normal 0-3 [facility] Comment on above: Performed By: #### 2 867857, [id number] #### [facility] [address] [place] [address] Nitrite Ql (U) Negative Normal Negative [facility] Comment on above: Performed By: #### 2 166605, [id number] #### [facility] [address] [place] [address] pH (U) 7.0 [pH] Invalid Interpretation Code 5.0-9.0 [facility] Comment on above: Performed By: #### 2 097121, [id number] #### [facility] [address] [place] [address] Protein (U) [Mass/Vol] Negative Normal Negative [facility] Comment on above: Performed By: #### 2 307956, [id number] #### [facility] [address] [place] [address] Specific gravity (U) [Rel density] 1.015 Invalid Interpretation Code 1.005-1.030 [facility] Comment on above: Performed By: #### 2 011592, [id number] #### [facility] [address] [place] [address] Type of Urine collection method Clean Catch Normal [facility] Comment on above: Performed By: #### 2 445232, [id number] #### [facility] [address] [place] [address] Urobilinogen Qn (U) 0.2 {Phoebe'U}/dL Normal 0.0-1.0 [facility] Comment on above: Performed By: #### 2 390494, [id number] #### [facility] [address] [place] [address] WBC Auto Ql (U) 1+ Abnormal Negative [facility] Comment on above: Performed By: #### 2 211954, [id number] #### [facility] [address] [place] [address] WBC LM.HPF (Urine sed) [#/Area] 0-5 Normal 0-5 [facility] Comment on above: Performed By: #### 2 526636, [id number] #### [facility] [address] [place] [address] URINALYSISOrdered By: Ravi Guzman on 07-16-2023 Bacteria LM Ql (Urine sed) Trace /HPF Normal Trace/HPF FT UA Auto SS Bilirubin Ql (U) Negative (07/16/23 12:49 PM) Normal Negative [facility] UA Auto SS Clarity (U) Clear (07/16/23 12:49 PM) Normal Clear [facility] UA Auto SS Color (U) Yellow (07/16/23 12:49 PM) Normal Yellow [facility] UA Auto SS Crystals LM Ql (Urine [...] PM) Normal Negative [facility] UA Auto SS [place].plasma/Lithi um.RBC (Bld) [Mass ratio] 0-3 /HPF Normal 0-3/HPF [facility] UA Auto SS Nitrite Ql (U) Negative (07/16/23 12:49 PM) Normal Negative [facility] UA Auto SS pH (U) 7.0 *NA* (07/16/23 12:49 PM) Invalid Interpretation Code 5.0 - 9.0 [facility] Auto SS Protein (U) [Mass/Vol] Negative (07/16/23 12:49 PM) Normal Negative [facility] UA Auto SS Specific gravity (U) [Rel density] 1.015 *NA* (07/16/23 12:49 PM) Invalid Interpretation Code 1.005 - 1.030 [facility] UA Auto SS UA Spec Desc Clean Catch (07/16/23 12:49 PM) Normal [facility] UA Auto SS Urobilinogen Qn (U) 0.8404777 {Phoebe'U}/dL Normal 0.0 - 1.0 EU/dL [facility] UA Auto SS WBC Auto Ql (U) 1+ *ABN* (07/16/23 12:49 PM) Invalid Interpretation Code Negative [facility] UA Auto SS WBC LM.HPF (Urine sed) [#/Area] 0-5 /HPF Normal 0-5/HPF [facility] UA Auto SS eGFRon 07-16-2023 eGFR 66 mL/min/1.73 m2 Normal >=59 [facility] Comment on above: Order Comment: Order added by Discern Expert. Performed By: #### 2 080834, [id number] #### [facility] [address] [place] [address] Office Visiton 07-06-2023 Follow-up visit [id number] Ira Khan 1945 F Date Provider Department Center 07/06/2023 MILA SORIA SANTA [facility] Family History Problem Relation Age of Onset Stroke Mother Stroke Brother Other Mother's Sister Coronary artery disease Mother's Sister Stroke Maternal Grandmother Family Status - Relation Status Age at Mother Brother Mother's Sister Maternal Grandmother Level of Service:04879 [place] OFFICE/OUTPATIENT ESTABLISHED MOD MDM 30 MIN Normal [facility] C Urineon 06-25-2023 Bacteria identified [...] test was performed at: [facility], [address] [place] [address], [address]- , , Normal [facility] Comment on above: Performed By: #### 1 [id number], [id number] #### [facility] [address] [place] [address] UA With Cult Reflexon 2023 UA Spec Desc Catheter Normal [facility] Comment on above: Result Comment: Mini cath specimen Performed By: #### 1 3235325, [id number] #### [facility] [address] [place] [address] Discharge Instructionson Discharge Instructions [id number] Normal [facility] Message from Medicareon 06-11 Message from Medicare [id number]#1.00TIFF Normal [facility] Auto Diffon 06-23-2023 Basophils/100 WBC (Bld) 0.4 % Normal 0.0-2.0 [facility] Comment on above: Order Comment: Order Added by Discern Expert. Performed By: #### 2 989551, [id number] #### [facility] [address] [place] [address] Basophils/Leukocytes Auto (Bld) [Pure # fraction] 0.1 E9/L Normal 0.0-0.2 [facility] Comment on above: Order Comment: Order Added by Discern Expert. Performed By: #### 2 129464, [id number] #### [facility] [address] [place] [address] Eosinophils/100 WBC (Bld) 0.8 % Normal 0.0-8.0 [facility] Comment on above: Order Comment: Order Added by Discern Expert. Performed By: #### 2 997505, [id number] #### [facility] [address] [place] [address] Eosinophils/Leukocyt es Auto (Bld) [Pure # fraction] 0.1 E9/L Normal 0.0-0.5 [facility] Comment on above: Order Comment: Order Added by Yoli Expert. Performed By: #### 2 265967, [id number] #### [facility] [address] [place] [address] Lymphocytes/100 WBC (Bld) 15.1 % Normal 14.0-50.0 [facility] Comment on above: Order Comment: Order Added by Discern Expert. Performed By: #### 2 543404, [id number] #### [facility] [address] [place] [address] Lymphocytes/Leukocyt es Auto (Bld) [Pure # fraction] 2.2 E9/L Normal 1.0-4.0 [facility] Comment on above: Order Comment: Order Added by Yoli Expert. Performed By: #### 2 642637, [id number] #### [facility] [address] [place] [address] Monocytes/100 WBC (Bld) 11.3 % Normal 4.0-14.0 [facility] Comment on above: Order Comment: Order Added by Yoli Expert. Performed By: #### 2 762453, [id number] #### [facility] [address] [place] [address] Monocytes/Leukocytes Auto (Bld) [Pure # fraction] 1.6 E9/L High 0.2-1.0 [facility] Comment on above: Order Comment: Order Added by Yoli Expert. Performed By: #### 2 972880, [id number] #### [facility] [address] [place] [address] Neutrophils/100 WBC (Bld) 72.4 % Normal 36.0-75.0 [facility] Comment on above: Order Comment: Order Added by Discern Expert. Performed By: #### 2 884784, [id number] #### [facility] [address] [place] [address] Neutrophils/Leukocyt es Auto (Bld) [Pure # fraction] 10.5 E9/L High 2.0-7.5 [facility] Comment on above: Order Comment: Order Added by Discern Expert. Performed By: #### 2 709126, [id number] #### [facility] [address] [place] [address] BMPon 06-23-2023 Anion gap [Moles/Vol] 13 mmol/L Normal 6-16 [facility] Comment on above: Performed By: #### 2 830697, [id number] #### [facility] [address] [place] [address] BUN/Creat Ratio 20 No Units Normal 10-20 [facility] Comment on above: Performed By: #### 2 966853, [id number] #### [facility] [address] [place] [address] Calcium [Mass/Vol] 10.7 mg/dL Normal 8.9-11.1 [facility] Comment on above: Performed By: #### 2 787214, [id number] #### [facility] [address] [place] [address] Chloride [Moles/Vol] 103 mmol/L Normal 101-111 [facility] Comment on above: Performed By: #### 2 818444, [id number] #### [facility] [address] [place] [address] CO2 [Moles/Vol] 25 mmol/L Normal 21-31 [facility] Comment on above: Performed By: #### 2 333310, [id number] #### [facility] [address] [place] [address] Creatinine [Mass/Vol] 0.9 mg/dL Normal 0.5-1.3 [facility] Comment on above: Performed By: #### 2 766051, [id number] #### [facility] [address] [place] [address] Glucose [Mass/Vol] 98 mg/dL Normal 55-199 [facility] Comment on above: Performed By: #### 2 603285, [id number] #### [facility] [address] [place] [address] Potassium [Moles/Vol] 3.5 mmol/L Normal 3.5-5.3 [facility] Comment on above: Performed By: #### 2 126122, [id number] #### [facility] [address] [place] [address] Sodium [Moles/Vol] 137 mmol/L Normal 135-145 [facility] Comment on above: Performed By: #### 2 784090, [id number] #### [facility] [address] [place] [address] Urea nitrogen [Mass/Vol] 18 mg/dL Normal 5-21 [facility] Comment on above: Performed By: #### 2 459939, [id number] #### [facility] [address] [place] [address] CBC w/ Auto Diffon Erythrocyte distribution width (RBC) [Ratio] 13.6 % Normal 10.9-14.2 [facility] Comment on above: Performed By: #### 2 354895, [id number] #### [facility] [address] [place] [address] Hematocrit (Bld) [Volume fraction] 40.9 % Normal 34.0-46.0 [facility] Comment on above: Performed By: #### 2 067840, [id number] #### [facility] [address] [place] [address] Hemoglobin (Bld) [Mass/Vol] 13.7 g/dL Normal 12.0-16.0 [facility] Comment on above: Performed By: #### 2 561518, [id number] #### [facility] [address] [place] [address] MCH (RBC) [Entitic mass] 30.8 pg Normal 27.0-34.0 [facility] Comment on above: Performed By: #### 2 366333, [id number] #### [facility] [address] [place] [address] MCHC (RBC) [Mass/Vol] 33.4 g/dL Normal 31.4-36.0 [facility] Comment on above: Performed By: #### 2 935308, [id number] #### [facility] [address] [place] [address] MCV (RBC) [Entitic vol] 92.2 fL Normal 80.0-100.0 [facility] Comment on above: Performed By: #### 2 661403, [id number] #### [facility] [address] [place] [address] Platelet mean volume (Bld) [Entitic vol] 9.9 fL Normal 6.4-10.8 [facility] Comment on above: Performed By: #### 2 877139, [id number] #### [facility] [address] [place] [address] Platelets (Bld) [#/Vol] 301.0 E9/L Normal 150.0-500.0 [facility] Comment on above: Performed By: #### 2 502013, [id number] #### [facility] [address] [place] [address] RBC (Bld) [#/Vol] 4.4 E12/L Normal 4.3-5.9 [facility] Comment on above: Performed By: #### 2 927814, [id number] #### [facility] [address] [place] [address] WBC corrected for nucl RBC Auto (Bld) [#/Vol] 14.5 E9/L High 4.0-11.0 [facility] Comment on above: Performed By: #### 2 177668, [id number] #### [facility] [address] [place] [address] CHEMISTRYOrdered By: SYSTEM SYSTEM on 06-23-2023 Troponin [...] conjunction with clinical conditions of myocardial infarction. ([employer] High Sensitivity Troponin I Instructions For Use, [place], January 2018) Troponin 183.20 pg/mL Invalid Interpretation [...] conjunction with clinical conditions of myocardial infarction. ([employer] High Sensitivity Troponin I Instructions For Use, [place], January 2018) Troponin 116.80 pg/mL Invalid Interpretation [...] conjunction with clinical conditions of myocardial infarction. ([employer] High Sensitivity Troponin I Instructions For Use, [place], January 2018) Lactic Acid Lvl 1.1 mmol/L [...] 96 mg/dL Normal 55 - 99 mg/dL [facility] POC Subsection Comment on above: Result Comment: Bonnie jamil RN/ POC Device SN [id number] Invalid Interpretation Code [facility] POC Subsection POC User ID [id number] Invalid Interpretation Code [facility] POC Subsection POC Username ANUPAM GERONIMOILY Invalid Interpretation Code [facility] POC Subsection COAGULATIONOrdered By: Hoang Chris on 06-23-2023 aPTT Coag (PPP) [Time] 30.4 s Normal 25.1 - 36.5 second(s) [facility] Auto Coag Comment on above: Interpretive Data: P lashell 15 days - 4 weeks 1 - [...] the same coagulation reagent and instrumentation as [facility]. Currently there are no coagulation studies available worldwide for children to 14 days, and no normal ranges. Heparin therapeutic range (represented by Anti-Factor Xa activity of 0.2 - 0.4 U/mL) corresponds to PTT of 56.6 - 109.0 sec. INR Coag (PPP) [Relative time] 1.0 {INR} Invalid Interpretation Code [facility] Auto Coag Comment on above: Interpretive Data: I NR results are specifically intended to assess patients stabilized on long-term Anticoagulation therapy suggested INR s Less Intensive Anticoagulation 2.0 3.0 Conventional Range 3.0 4.5 PT Coag (PPP) [Time] 11.7 s Normal 9.4 - 1 2.5 second(s) [facility] Auto Coag Comment on above: Interpretive Data: [...] the same coagulation reagent and instrumentation as [facility]. Currently there are no coagulation studies available [...] Technologist: YOLY Technical Comments Contrast: None Normal [facility] Capillary Glucose POCon 06-11 Glucose [Mass/Vol] 96 mg/dL Normal 55-99 [facility] Comment on above: Result Comment: Bonnie jamil RN/MD Performed By: #### 2 [id number] #### [facility] [address] [place] [address] Consent for Treatmenton 06-11 Consent for Treatment [id number] Normal [facility] Discharge Note-Nursingon Discharge Note-Nursing JUDITH KHAN :1945 [...] Doctor Event Name Event Result Pharmacy Information [facility] Follow Up Appointments after Discharge Follow Up with Dani HERRERA, JOANNA Kauffman When: Within 1 to 2 weeks Where: [place] [place] [address]- Medications What How Much When Instructions Next [...] 13.7 gm/dL (06/23/23 01:55:00) Creatinine: 0.9 mg/dL (06/23/23:55:00) Hct: 40.9 % [...] days a (more content not included)... Normal [facility] ED Clinical Summaryon 2023 ED Clinical Summary (Inserted Image. Jenni ble to display) [address] [address] ED Clinical Summary Person Information Name: JUDITH KHAN Marcus/New_Babbitt Age: 78 Years : 1945 Sex: Female Language: Mongolian PCP: Rodrick aSms MD Marital Status: Visit Id: Visit Reason: Potential stroke; POSS STROKE Speciality: Acuity: 2 Enc Type: Observation Med Service: Emergency Arrival: 06/23/2023 01:35:17 Discharge: LOS: 000 03:53 Checkin: 06/23/2023 01:35:17 Checkout: 06/23/2023 05:28:48 Dispo Type: Admitted as IP to this [facility] EVENTS: Event Name Event Status Request [...] Meds Admin Request 06/23/2023 04:30:49 ADDRESS: [address] [place] [phone] PHYS DOC NOTES: MEDICAL INFORMATION: Prescriptions Given: [...] 4:Elevated troponin; 5:Hypertension; 6:High cholesterol; 7:Parkinsons Normal [facility] ED Note-Physicianon 06-23-19 ED Note-Physician Basic Information Time Seen: Francis Sidhu M.D.[facility] 06/23/2023 01:37 Chief Complaint states went to [...] both correctly = 0 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 Normal [facility] Comment on above: Result Comment: Elec tronically Signed By: Augie Sidhu M.D.\Date and Time Signed: 06/23/23 04:21 EST ED Patient Education Noteon 06-23-2023 ED Patient Education Note Normal [facility] ED Patient Summaryon 024 ED Patient Summary (Inserted Image. Jenni ble to display) [place] [id number] Patient Discharge Instructions Person Information Name: JUDITH KHAN Age: 78 Years Arrival Date: 06/23/2023 01:35:17 Discharge Diagnosis: 1:Right sided weakness; 2:Hypoxia; 3:Urinary tract infection; 4:Elevated troponin; 5:Hypertension; 6:High cholesterol; 7:Parkinsons Primary Care Physician: Rodrick Sams MD Provider Information Primary Provider: Augie Sidhu M.D. Advanced Fuse Coiler:None The exam and treatment you received in the Emergency Department were for an urgent problem and are not intended as complete care. It is important that you follow up with a doctor, nurse practitioner, or physician?s senior office support assistant sosa for ongoing care. If your symptoms become [...] opioids can be used to help relieve gggcfjsp-pq-rskczb pain and are often prescribed following a [...] be struggling with addiction, tell your health in home caregiver and ask for guidance or call [employer]?S National Helpline at 2-863-085-DSDP. v Source: [place] Department of Health and Human Services/Center for Disease (more content not included)... Normal [facility] HEMATOLOGYOrdered By: SYSTEM SYSTEM on 06-23-2023 Basophils/100 [...] 06-23-2023 Albumin [Mass/Vol] 4.1 g/dL Normal 3.3-5.0 [facility] Comment on above: Performed By: #### 2 268178, [id number] #### [facility] [address] [place] [address] Albumin/Globulin [Mass ratio] 1.7 {ratio} Normal 1.1-2.2 [facility] Comment on above: Performed By: #### 2 781659, [id number] #### [facility] [address] [place] [address] Alk Phos 80 Int._Unit/L Normal 21-98 [facility] Comment on above: Performed By: #### 2 249861, [id number] #### [facility] [address] [place] [address] ALT 10 Int._Unit/L Normal 6-46 [facility] Comment on above: Performed By: #### 2 191780, [id number] #### [facility] [address] [place] [address] AST 16 Int._Unit/L Normal 5-43 [facility] Comment on above: Performed By: #### 2 203679, [id number] #### [facility] [address] [place] [address] Bili Direct 0.1 mg/dL Normal 0.0-0.4 [facility] Comment on above: Performed By: #### 2 487300, [id number] #### [facility] [address] [place] [address] Bili Indirect 0.5 mg/dL Normal 0.1-0.9 [facility] Comment on above: Performed By: #### 2 264167, [id number] #### [facility] [address] [place] [address] Bili Total 0.6 mg/dL Normal 0.0-1.1 [facility] Comment on above: Performed By: #### 2 984204, [id number] #### [facility] [address] [place] [address] Globulin (S) [Mass/Vol] 2.4 g/dL Normal 1.4-4.0 [facility] Comment on above: Performed By: #### 2 676755, [id number] #### [facility] [address] [place] [address] Protein [Mass/Vol] 6.5 g/dL Normal 6.0-7.8 [facility] Comment on above: Performed By: #### 2 497495, [id number] #### [facility] [address] [place] [address] Interdisciplinary Note - Bobby n 06-23-2023 Interdisciplinary [...] Recommend Out-pt. OT eval. for Parkinson's. Normal [facility] Interdisciplinary Note - Spe ech Languageon 06-23-2023 [...] further ST needs at this time. Normal [facility] Lactic Acidon 06-23-2023 Lactic Acid Lvl 1.1 mmol/L Normal 0.5-2.2 [facility] Comment on above: Performed By: #### 2 283684, [id number] #### [facility] [address] [place] [address] MICRO OTHER TESTSOrdered By: Hoang Chris on 06-23-2023 Rapid COV Int NEG Ctl Pass (06/23/23 2:12 AM) Normal [facility] Sero Rapid COV Int POS Ctl Pass (06/23/23 2:12 AM) Normal [facility] SARS-CoV+SARS-CoV-2 (COVID-19) Ag IA.rapid Ql (Resp) Not Detected 11 (06/23/23 2:12 AM) Normal Not Detected [facility] Comment on above: Interpretive Data: Bob melendez [employer] Veritor System for Rapid Detection of SARS-CoV-2 [...] other viruses or pathogens; and, in the [facility], this test is only authorized for the duration of the declaration that circumstances exist justifying the authorization of emergency use of in vitro diagnostics for detection and/or diagnosis of the virus that causes COVID-19 under Section 564(b)(1) of the Act, 21 U.S.C. 360bbb-3(b)(1), unless the authorization is terminated or revoked sooner. Magnesiumon 06-23-2023 Magnesium [Mass/Vol] 1.8 mg/dL Normal 1.3-2.4 [facility] Comment on above: Performed By: #### 2 077755, [id number] #### [facility] [address] [place] [address] Message from Medicareon 06-11 Message from Medicare [id number]#[id number] Normal [facility] Monitor Recordon 06-23-2023 Monitor Record [id number]#1.00TIFF Normal [facility] Monitor Record [id number]#1.00TIFF Normal [facility] Monitor Record [id number]#1.00TIFF Normal [facility] Monitor Record [id number]#1.00TIFF Normal [facility] PT & PTTon 06-23-2023 aPTT Coag (PPP) [Time] 30.4 second(s) Normal 25.1-36.5 [facility] Comment on above: Result Comment: Para meter [...] the same coagulation reagent and instrumentation as [facility]. Currently there are no coagulation studies available worldwide for children to 14 days, and no normal ranges. Heparin therapeutic range (represented by Anti-Factor Xa activity of 0.2 - 0.4 U/mL) corresponds to PTT of 56.6 - 109.0 sec. Performed By: #### 2 936231, [id number] #### [facility] [address] [place] [address] INR Coag (PPP) [Relative time] 1.0 {INR} Invalid Interpretation Code [facility] Comment on above: Result Comment: INR results are specifically intended to assess patients stabilized on long-term Anticoagulation therapy suggested INR?s ?Less Intensive Anticoagulation? 2.0 ? 3.0 Conventional Range 3.0 ? 4.5 Performed By: #### 2 509332, [id number] #### [facility] [address] [place] [address] PT Coag (PPP) [Time] 11.7 second(s) Normal 9.4-12.5 [facility] Comment on above: Result Comment: 15 d [...] the same coagulation reagent and instrumentation as [facility]. Currently there are no coagulation studies available worldwide for children to 14 days, and no normal ranges. Performed By: #### 2 464842, [id number] #### [facility] [address] [place] [address] Patient Education - Texton 0 06-23-2023 Patient [...] about working with a physical therapist or monkey trainer to help you get stronger. General instructions ? Take kufn-fgl-nqhlfba and prescription medicines only as told by [...] provider. Document Revised: 04/30/2022 Document Reviewed: 04/30/2022 [employer] Patient Education ? 2022 Urge. Obstetrics and Gynecology Urinary Tract Infection, Adult [...] (sexually transmitted (more content not included)... Normal [facility] Pre-Arrival Noteon Pre-Arrival Note Pre-Arrival Summary Name: , [facility] Current Date: 06/23/2023 01:37:08 EST Gender: Date of : Age: Pre-Arrival Type: EMS ETA: 06/23/2023 01:53:00 EST Primary Care Physician: Presenting Problem: possible stroke Pre-Arrival User: Tejal Gold RN Referring Source: Location: ID Completion Date/Time: 06/23/2023 01:23:00 [facility] Emergency Department Pre-Hospital Report Form Vital Signs: Pre-Hospital Report: Treatment in Route: Response to Treatment: Misc. Issues: Normal [facility] RAD - Preliminary Cat Scan R eporton 06-23-2023 RAD - Preliminary Cat Scan Report [id number] Normal [facility] Rapid COVID Antigen ([facility])on 06-23-2023 Rapid COV Int NEG Ctl Pass Normal [facility] Comment on above: Performed By: #### 2 [id number], [id number] #### [facility] [address] [place] [address] Rapid COV Int POS Ctl Pass Normal [facility] Comment on above: Performed By: #### 2 [id number], [id number] #### [facility] [address] [place] [address] SARS-CoV+SARS-CoV-2 (COVID-19) Ag IA.rapid Ql (Resp) Not detected Normal Not Detected [facility] Comment on above: Result Comment: The [employer] System for Rapid Detection of SARS-CoV-2 is [...] or revoked sooner. Performed By: #### 2 [id number], [id number] #### [facility] [address] [place] [address] TSH With T4fr Reflexon 06-23 TSH Qn 0.68 m[IU]/L Normal 0.34-5.60 [facility] Comment on above: Performed By: #### 2 [id number], [id number] #### [facility] [address] [place] [address] Troponin 0 Hr.on 06-23-2023 Troponin 42.70 pg/mL Abnormal 10.10-27.10 [facility] Comment on above: Result Comment: Crit ical Result Verified by Repeat Analysis Critical Result I_TnIHS:42.7 Called to and read back by: AMNA BRANDON at: 06/23/2023 02:43:02 by:ROXANA The 95% CI (Confidence Interval) PPV (Positive Predictive Value) for myocardial infarction in females is 38 pg/mL, in males 51 pg/mL. The results should be used in conjunction with clinical conditions of myocardial infarction. ([employer] High Sensitivity Troponin I Instructions For Use, [place], January 2018) Performed By: #### 2 [id number], [id number] #### [facility] [address] [place] [address] Troponin 3 Hr.on 06-23-2023 Troponin 116.80 pg/mL Abnormal 10.10-27.10 [facility] Comment on above: Result Comment: Crit ical Result Verified by Repeat Analysis Critical Result I_TnIHS:116.8 Called to and read back by: ELIAN QUGILEY at: 06/23/2023 06:19:20 by:SYDNI The 95% CI (Confidence Interval) PPV (Positive Predictive Value) for myocardial infarction in females is 38 pg/mL, in males 51 pg/mL. The results should be used in conjunction with clinical conditions of myocardial infarction. (Access High Sensitivity Troponin I Instructions For Use, [place], January 2018) Performed By: #### 1 [id number] #### [facility] [address] [place] [address] Troponin 6 Hr.on 06-23-2023 Troponin 183.20 pg/mL Abnormal 10.10-27.10 [facility] Comment on above: Result Comment: Crit ical Result Verified by Previous Result Critical Result I_TnIHS:183.2 Called to and read back by: JAIMEE MUNSON at: 06/23/2023 09:12:46 by:SYDNI The 95% CI (Confidence Interval) PPV (Positive Predictive Value) for myocardial infarction in females is 38 pg/mL, in males 51 pg/mL. The results should be used in conjunction with clinical conditions of myocardial infarction. ([employer] High Sensitivity Troponin I Instructions For Use, [place], January 2018) Performed By: #### 1 [id number] #### [facility] [address] [place] [address] Troponin 9 Hr.on 06-23-2023 Troponin 187.00 pg/mL Abnormal 10.10-27.10 [facility] Comment on above: Result Comment: Crit ical Result Verified by Previous Result Critical Result I_TnIHS:187.0 Called to and read back by: ANGEL RESTREPO at: 06/23/2023 12:10:53 by:SYDNI The 95% CI (Confidence Interval) PPV (Positive Predictive Value) for myocardial infarction in females is 38 pg/mL, in males 51 pg/mL. The results should be used in conjunction with clinical conditions of myocardial infarction. ([employer] High Sensitivity Troponin I Instructions For Use, [place], January 2018) Performed By: #### 1 [id number] ####[facility] [id number] [place] [address] UA With Cult Reflexon 2023 Bacteria LM Ql (Urine sed) 1+ /HPF Abnormal Trace [facility] Comment on above: Performed By: #### 1 [id number], [id number] #### [facility] [address] [place] [address] Bilirubin Ql (U) Negative Normal Negative [facility] Comment on above: Performed By: #### 1 [id number], [id number] #### [facility] [address] [place] [address] Clarity (U) SL CLOUDY Abnormal Clear [facility] Comment on above: Performed By: #### 1 [id number], [id number] #### [facility] [address] [place] [address] Color (U) YELLOW Normal Yellow [facility] Comment on above: Performed By: #### 1 [id number], [id number] #### [facility] [address] [place] [address] Epithelial cells.squamous LM.HPF (Urine sed) [#/Area] 0-2 Normal 0-2 [facility] Comment on above: Performed By: #### 1 [id number], [id number] #### [facility] [address] [place] [address] Glucose Test strip (U) [Mass/Vol] Negative Normal Negative [facility] Comment on above: Performed By: #### 1 [id number], [id number] #### [facility] [address] [place] [address] Hemoglobin Ql (U) Negative Normal Negative [facility] Comment on above: Performed By: #### 1 [id number], [id number] #### [facility] [address] [place] [address] Ketones (U) [Mass/Vol] Negative Normal Negative [facility] Comment on above: Performed By: #### 1 [id number], [id number] #### [facility] [address] [place] [address] [place].plasma/Lithi um.RBC (Bld) [Mass ratio] 0-3 Normal 0-3 [facility] Comment on above: Performed By: #### 1 [id number], [id number] #### [facility] [address] [place] [address] Nitrite Ql (U) Negative Normal Negative [facility] Comment on above: Performed By: #### 1 [id number], [id number] #### [facility] [address] [place] [address] pH (U) 7.5 [pH] Invalid Interpretation Code 5.0-9.0 [facility] Comment on above: Performed By: #### 1 [id number], [id number] #### [facility] [address] [place] [address] Protein (U) [Mass/Vol] Negative Normal Negative [facility] Comment on above: Performed By: #### 1 [id number], [id number] #### [facility] [address] [place] [address] Specific gravity (U) [Rel density] 1.015 Invalid Interpretation Code 1.005-1.030 [facility] Comment on above: Performed By: #### 1 [id number], [id number] #### [facility] [address] [place] [address] Urobilinogen Qn (U) 0.2 {Phoebe'U}/dL Normal 0.0-1.0 [facility] Comment on above: Performed By: #### 1 [id number], [id number] #### [facility] [address] [place] [address] WBC Auto Ql (U) 1+ Abnormal Negative [facility] Comment on above: Performed By: #### 1 [id number], [id number] #### [facility] [address] [place] [address] WBC LM.HPF (Urine sed) [#/Area] 6-15 Abnormal 0-5 [facility] Comment on above: Performed By: #### 1 [id number], [id number] #### [facility] [address] [place] [address] URINALYSISOrdered By: Hoang Chris on 06-23-2023 Bacteria [...] (Urine sed) [#/Area] 0-2 /HPF Normal 0-2/HPF [facility] UA Auto SS Glucose Test strip (U) [Mass/Vol] Negative (06/23/23 3:01 AM) Normal Negative [facility] UA Auto SS Hemoglobin Ql (U) Negative (06/23/23 3:01 AM) Normal Negative [facility] UA Auto SS Ketones (U) [Mass/Vol] Negative (06/23/23 3:01 AM) Normal Negative [facility] UA Auto SS [place].plasma/Lithi um.RBC (Bld) [Mass ratio] 0-3 /HPF Normal 0-3/HPF [facility] UA Auto SS Nitrite Ql (U) Negative (06/23/23 3:01 AM) Normal Negative [facility] UA Auto SS pH (U) 7.5 *NA* (06/23/23 3:01 AM) Invalid Interpretation Code 5.0 - 9.0 [facility] UA Auto SS Protein (U) [Mass/Vol] Negative (06/23/23 3:01 AM) Normal Negative [facility] UA Auto SS Specific gravity (U) [Rel density] 1.015 *NA* (06/23/23 3:01 AM) Invalid Interpretation Code 1.005 - 1.030 [facility] UA Auto SS UA Spec Desc Clean Catch (06/23/23 3:01 AM) Normal [facility] UA Auto SS Urobilinogen Qn (U) 0.3912599 {Phoebe'U}/dL Normal 0.0 - 1.0 EU/dL [facility] UA Auto SS WBC Auto Ql (U) 1+ *ABN* (06/23/23 3:01 AM) Invalid Interpretation Code Negative [facility] UA Auto SS WBC LM.HPF (Urine sed) [#/Area] 6-15 /HPF Invalid Interpretation Code 0-5/HPF [facility] UA Auto SS XR Chest Single Viewon [...] mGy = na DAP = na Normal [facility] eGFRon 06-23-2023 GFR/1.73 sq M.predicted among non-blacks MDRD (S/P/Bld) [Vol rate/Area] mL/min/{1.73_m2} Normal >=59 [facility] Comment on above: Order Comment: Order added by Discern Expert. Performed By: #### 2 [id number], [id number] #### [facility] [address] [place] [address] Creatinine (Bld) [Mass/Vol]O rdered By: Giovanni Gill on 05-15-2023 Creatinine [Mass/Vol] 1.0 mg/dL 0.6-1.3 [facility] Comment on above: ER/ESD physician is notified/shown all ISTAT results.Critical values may be confirmed by laboratory testing ifdeemed necessary by ER attending doctor. ISTAT XRay CREon 05-15-2023 Creatinine [Mass/Vol] 1.0 mg/dL Normal 0.6-1.3 [facility] Comment on above: Result Comment: ER/E SD physician is notified/shown all ISTAT results. Critical values may be confirmed by laboratory testing if deemed necessary by ER attending doctor. Performed By: #### I SCRE #### [facility] [address] ISTAT GFR 58.023 Normal [facility] Comment on above: Result Comment: PERF ORMED BY: [facility] [address] [place] [address] PATHOLOGIST CONVEYOR MECHANIC MARISOL AGUSTIN M.D. Performed By: #### I SCRE #### [facility] [address] MR head/brain wo/w conon MR head/brain wo/w con [facility] [place] [address] [place] [address] MRI Report Signed Patient: Judith Khan MR#: [id number] : 1945 Acct:[id number] Age/Sex: 78 / F ADM Date: 05/15/23 Loc: MR Room: Type: [facility] Attending Dr: Giovanni COLIN Copies to: DIXIE [...] Adeel Meyer M.D.05/15/2023 5:24 PM Dictation Location: [place] [address] Transcribed By: JOSELO 05/15/231723 Dictated By: Adeel Meyer II, MD 05/15/231718 Signed By: 05/15/23 172 [facility] No Panel InformationOrdered By: Giovanni Gill on 05-15-2023 Bedside Estimated GFR (eGFR) 58.023 [facility] 37on 01-12-2023 37 Hold metoprolol and see if fatigue levels improve Continue all other medications Monitor blood pressure 1-2 times a day and if it increases greater than 130/80 please call the office for medication adjustment, or for tachycardia/palpitations Normal [facility] Office Visiton 01-12-2023 Follow-up visit [id number] Ira Khan 1945 F Date Provider Department Center 01/12/2023 MILA SORIA CARD [facility] Family History Problem Relation Age of Onset Stroke Mother Stroke Brother Other Mother's Sister Coronary artery disease Mother's Sister Stroke Maternal Grandmother Family Status - Relation Status Age at Mother Brother Mother's Sister Maternal Grandmother Level of Service:729[address] [facility] OFFICE/OUTPATIENT ESTABLISHED LOW MDM 20-29 MIN Normal [facility] BNPon 10-09-2022 Natriuretic peptide B (Bld) [Mass/Vol] 90.0 pg/mL Normal <=1,800.0 [facility] Comment on above: Performed By: #### M G, CMP, TSH, T7, BNP #### [facility] [address] [place] [address] [address] Glenys Holly CBC AUTO DIFFon 10-09-2022 BASO # 0.1 103/ul Normal 0.0-0.[address] [facility] Comment on above: Performed By: #### M G, CMP, TSH, T7, BNP #### [facility] [address] [place] [address] [address] Glenys Holly Basophils/100 WBC (Bld) 1.0 % Normal 0.2-2.[address] [facility] Comment on above: Performed By: #### M G, CMP, TSH, T7, BNP #### [facility] [address] [place] [address] [address] Glenys Holly EO # 0.5 103/ul Normal 0.0-0.7 [facility] Comment on above: Performed By: #### M G, CMP, TSH, T7, BNP #### [facility] [address] [place] [address] Dr. Glenys Holly Eosinophils/100 WBC (Bld) 6.4 % Normal 0.9-7.0 [facility] Comment on above: Performed By: #### M G, CMP, TSH, T7, BNP #### [facility] [address] [place] [address] Dr. Glenys Holly Erythrocyte distribution width (RBC) [Ratio] 15.4 % Critically high 11.0-15.0 [facility] Comment on above: Performed By: #### M G, CMP, TSH, T7, BNP #### [facility] [address] [place] [address] Dr. Glenys Holly Hematocrit (Bld) [Volume fraction] 42.8 % Normal 36.0-48.[address] [facility] Comment on above: Performed By: #### M G, CMP, TSH, T7, BNP #### [facility] [address] [place] [address] Dr. Glenys Holly Hemoglobin (Bld) [Mass/Vol] 14.1 g/dL Normal 12.0-16.[address] [facility] Comment on above: Performed By: #### M G, CMP, TSH, T7, BNP #### [facility] [address] [place] [address] Dr. Glenys Holly IG # 0.01 10e3/ul Normal 0.00-0.03 [facility] Comment on above: Performed By: #### M G, CMP, TSH, T7, BNP #### [facility] [address] [place] [address] Dr. Glenys Holly IG % 0.1 % Normal 0.0-0.5 [facility] Comment on above: Performed By: #### M G, CMP, TSH, T7, BNP #### [facility] [address] [place] [address] Dr. Glenys Holly LYMPH # 3.3 103/ul Normal 1.2-3.8 [facility] Comment on above: Performed By: #### M G, CMP, TSH, T7, BNP #### [facility] [address] [place] [address] Dr. Glenys Holly Lymphocytes/100 WBC (Bld) 44.2 % Normal 20.5-60.0 [facility] Comment on above: Performed By: #### M G, CMP, TSH, T7, BNP #### [facility] [address] [place] [address] Dr. Glenys Holly MANUAL DIFF REQ NO Normal [facility] Comment on above: Performed By: #### M G, CMP, TSH, T7, BNP #### [facility] [address] [place] [address] Dr. Glenys Holly MCH (RBC) [Entitic mass] 30.3 pg Normal 26.7-34.0 [facility] Comment on above: Performed By: #### M G, CMP, TSH, T7, BNP #### [facility] [address] [place] [address] Dr. Glenys Holly MCHC (RBC) [Mass/Vol] 32.9 g/dL Normal 29.9-35.2 [facility] Comment on above: Performed By: #### M G, CMP, TSH, T7, BNP #### [facility] [address] [place] [address] Dr. Glenys Holly MCV (RBC) [Entitic vol] 92.0 fL Normal 81.0-99.0 [facility] Comment on above: Performed By: #### M G, CMP, TSH, T7, BNP #### [facility] [address] [place] [address] Dr. Glenys Holly MONO # 1.2 103/ul Critically high 0.3-0.8 [facility] Comment on above: Performed By: #### M G, CMP, TSH, T7, BNP #### [facility] [address] [place] [address] Dr. Glenys Holly Monocytes/100 WBC (Bld) 16.4 % Critically high 1.7-12.0 [facility] Comment on above: Performed By: #### M G, CMP, TSH, T7, BNP #### [facility] [address] [place] [address] Dr. Glenys Holly NEUT # 2.4 103/ul Normal 1.4-6.5 [facility] Comment on above: Performed By: #### M G, CMP, TSH, T7, BNP #### [facility] [address] [place] [address] Dr. Glenys Holly Neutrophils/100 WBC (Bld) 31.9 % Critically low 43.0-75.0 [facility] Comment on above: Performed By: #### M G, CMP, TSH, T7, BNP #### [facility] [address] [place] [address] Dr. Glenys Holly Platelet mean volume (Bld) [Entitic vol] 10.3 fL Normal 9.5-13.[address] [facility] Comment on above: Performed By: #### M G, CMP, TSH, T7, BNP #### [facility] [address] [place] [address] Dr. Glenys Holly PLT 379 103/ul Normal 150-450 [facility] Comment on above: Performed By: #### M G, CMP, TSH, T7, BNP #### [facility] [address] [place] [address] Dr. Glenys Holly RBC 4.65 106/ul Normal 4.20-5.40 [facility] Comment on above: Performed By: #### M G, CMP, TSH, T7, BNP #### [facility] [address] [place] [address] Dr. Glenys Holly WBC 7.4 103/ul Normal 4.0-11.0 [facility] Comment on above: Performed By: #### M G, CMP, TSH, T7, BNP #### [facility] [address] [place] [address] Dr. Glenys Holly FERRITINon 10-09-2022 Ferritin [Mass/Vol] 68.0 ng/mL Normal 8.0-252.0 [facility] Comment on above: Performed By: #### F ERR, IRON, VITAD ####[facility] [address] [place] [address]Dr. Glenys Holly FREE THYROXINE INDEX T7on FTI 3.10 Normal 1.30-4.50 [facility] Comment on above: Performed By: #### M G, CMP, TSH, T7, BNP #### [facility] [address] [address] [address] Glenys Holly T3U 36.0 % Normal 30.0-39.0 [facility] Comment on above: Performed By: #### M G, CMP, TSH, T7, BNP #### [facility] [address] [address] [address] Glenys Holly T4 [Mass/Vol] 8.60 ug/dL Normal 4.80-13.[address] [facility] Comment on above: Performed By: #### M G, CMP, TSH, T7, BNP #### [facility] [address] [place] [address] Dr. Glenys Holly IRONon 10-09-2022 Iron [Mass/Vol] 52.0 ug/dL Normal 50.0-170.0 [facility] Comment on above: Performed By: #### F ERR, IRON, VITAD ####[facility] [id number] [address]Dr. Glenys Holly MAGNESIUMon 10-09-2022 Magnesium [Mass/Vol] 2.0 mg/dL Normal 1.8-2.4 [facility] Comment on above: Performed By: #### M G, CMP, TSH, T7, BNP #### [facility] [address] [address] [address] Glenys Holly PROF 14(COMP METB)on 023 Albumin [Mass/Vol] 3.5 g/dL Normal 3.4-5.0 [facility] Comment on above: Performed By: #### M G, CMP, TSH, T7, BNP #### [facility] [address] [address] [address] Glenys Holly Albumin/Globulin [Mass ratio] 1.0 {ratio} Normal [facility] Comment on above: Performed By: #### M G, CMP, TSH, T7, BNP #### [facility] [address] [place] [address] Dr. Glenys Holly ALP [Catalytic activity/Vol] 134 U/L Critically high 46-[address] [facility] Comment on above: Performed By: #### M G, CMP, TSH, T7, BNP #### [facility] [address] [place] [address] Dr. Glenys Holly ALT [Catalytic activity/Vol] 34 U/L Normal 14-[address] [facility] Comment on above: Performed By: #### M G, CMP, TSH, T7, BNP #### [facility] [address] [place] [address] Dr. Glenys Holly Anion gap [Moles/Vol] 8.8 mmol/L Normal [facility] Comment on above: Performed By: #### M G, CMP, TSH, T7, BNP #### [facility] [address] [place] [address] Dr. Glenys Holly AST [Catalytic activity/Vol] 19 U/L Normal 15-[address] [facility] Comment on above: Performed By: #### M G, CMP, TSH, T7, BNP #### [facility] [address] [place] [address] Dr. Glenys Holly Bilirubin [Mass/Vol] 0.2 mg/dL Normal 0.2-1.[address] [facility] Comment on above: Performed By: #### M G, CMP, TSH, T7, BNP #### [facility] [address] [place] [address] Dr. Glenys Holly Calcium [Mass/Vol] 10.6 mg/dL Critically high 8.5-10.1 [facility] Comment on above: Performed By: #### M G, CMP, TSH, T7, BNP #### [facility] [address] [place] [address] Dr. Glenys Holly Chloride [Moles/Vol] 105 mmol/L Normal 98-[address] [facility] Comment on above: Performed By: #### M G, CMP, TSH, T7, BNP #### [facility] [address] [address] [address] Glenys Holly CO2 [Moles/Vol] 30.0 mmol/L Normal 21.0-32.[address] [facility] Comment on above: Performed By: #### M G, CMP, TSH, T7, BNP #### [facility] [address] [address] [address] Glenys Holly Creatinine [Mass/Vol] 0.86 mg/dL Normal 0.55-1.[address] [facility] Comment on above: Performed By: #### M G, CMP, TSH, T7, BNP #### [facility] [address] [address] [address] Glenys Holly EGFR-AF CITIZEN [place] >60 Normal >=[address] [facility] Comment on above: Performed By: #### M G, CMP, TSH, T7, BNP #### [facility] [address] [place] [address] Dr. Glenys Holly EGFR-NON AF CITIZEN [place] >60 Normal >=60 [facility] Comment on above: Performed By: #### M G, CMP, TSH, T7, BNP #### [facility] [address] [address] [address] Glenys Holly Globulin (S) [Mass/Vol] 3.5 g/dL Normal [facility] Comment on above: Performed By: #### M G, CMP, TSH, T7, BNP #### [facility] [address] [address] [address] Glenys Holly Glucose [Mass/Vol] 99 mg/dL Normal 74-106 [facility] Comment on above: Performed By: #### M G, CMP, TSH, T7, BNP #### [facility] [address] [address] [address] Glenys Holly Potassium [Moles/Vol] 3.8 mmol/L Normal 3.5-5.[address] [facility] Comment on above: Performed By: #### M G, CMP, TSH, T7, BNP #### [facility] [address] [address] [address] Glenys Holly Protein [Mass/Vol] 7.0 g/dL Normal 6.4-8.2 [facility] Comment on above: Performed By: #### M G, CMP, TSH, T7, BNP #### [facility] [address] [address] [address] Glenys Holly Sodium [Moles/Vol] 140 mmol/L Normal 136-145 [facility] Comment on above: Performed By: #### M G, CMP, TSH, T7, BNP #### [facility] [address] [address] [address] Glenys Holly Urea nitrogen [Mass/Vol] 25.0 mg/dL Critically high 7.0-18.[address] [facility] Comment on above: Performed By: #### M G, CMP, TSH, T7, BNP #### [facility] [address] [address] [address] Glenys Holly Urea nitrogen/Creatinine [Mass ratio] 29.1 mg/mg Normal [facility] Comment on above: Performed By: #### M G, CMP, TSH, T7, BNP #### [facility] [address] [address] [address] Glenys Holly TSHon 10-09-2022 TSH 1.720 uIU/mL Normal 0.358-3.[address] [facility] Comment on above: Performed By: #### M G, CMP, TSH, T7, BNP #### [facility] [address] [address] [address] Glenys Holly VITAMIN D 25 OHon 10-09-2022 VIT D 25-OH 89.3 ng/mL Normal [facility] Comment on above: Performed By: #### F ERR, IRON, VITAD ####[facility] [address] [address]Dr. Glenys Holly VIT D RANGES SEE BELOW Normal [facility] Comment on above: Result Comment: <20 ng/mL Vit D deficient 20 - <30 ng/mL Vit D insufficient 30 - 100 ng/mL Vit D sufficient >100 ng/mL Potential Toxicity Performed By: #### F ERR, IRON, VITAD ####[facility] [address] [place], [place] [address]BtDr. Glenys Holly NM STRESS/REST MULTIon 05-24 NM STRESS/REST MULTI Patient: Shana KHAN Exam Date: 05/24/2022 : 1945 Gender:F Ordering : DR RODRICK SAMS . Admission #: [id number] Family : Order #: [id number] CLICK HERE TO VIEW EXAM RADIOLOGY REPORT [...] M.D. on 05/24/2022 at 16:02 Normal [facility] BNPon 05-10-2022 Natriuretic peptide B (Bld) [Mass/Vol] 1305.0 pg/mL Normal <=1,800.0 [facility] Comment on above: Performed By: #### M G, CMP, TSH, T7, BNP #### [facility] [address] [place], [place] [address] Dr. Glenys Holly CBC AUTO DIFFon 11-30-2022 BASO # 0.0 103/ul Normal 0.0-0.1 [facility] Comment on above: Performed By: #### M G, CMP, TSH, T7, BNP #### [facility] [address] [place] [address] Dr. Glenys Holly Basophils/100 WBC (Bld) 0.3 % Normal 0.2-2.0 [facility] Comment on above: Performed By: #### M G, CMP, TSH, T7, BNP #### [facility] [address] [place] [address] Dr. lGenys Holly EO # 0.0 103/ul Normal 0.0-0.7 [facility] Comment on above: Performed By: #### M G, CMP, TSH, T7, BNP #### [facility] [address] [place] [address] Dr. Glenys Holly Eosinophils/100 WBC (Bld) 0.1 % Critically low 0.9-7.0 [facility] Comment on above: Performed By: #### M G, CMP, TSH, T7, BNP #### [facility] [address] [place] [address] Dr. Glenys Holly Erythrocyte distribution width (RBC) [Ratio] 15.1 % Critically high 11.0-15.0 [facility] Comment on above: Performed By: #### M G, CMP, TSH, T7, BNP #### [facility] [address] [place] [address] Dr. Glenys Holly Hematocrit (Bld) [Volume fraction] 42.9 % Normal 36.0-48.0 [facility] Comment on above: Performed By: #### M G, CMP, TSH, T7, BNP #### [facility] [address] [place] [address] Dr. Glenys Holly Hemoglobin (Bld) [Mass/Vol] 14.6 g/dL Normal 12.0-16.[address] [facility] Comment on above: Performed By: #### M G, CMP, TSH, T7, BNP #### [facility] [address] [place] [address] Dr. Glenys Holly IG # 0.05 10e3/ul Critically high 0.00-0.[address] [facility] Comment on above: Performed By: #### M G, CMP, TSH, T7, BNP #### [facility] [address] [place] [address] Dr. Glenys Holly IG % 0.7 % Critically high 0.0-0.[address] [facility] Comment on above: Performed By: #### M G, CMP, TSH, T7, BNP #### [facility] [address] [place] [address] Dr. Glenys Holly LYMPH # 1.6 103/ul Normal 1.2-3.8 [facility] Comment on above: Performed By: #### M G, CMP, TSH, T7, BNP #### [facility] [address] [place] [address] Dr. Glenys Holly Lymphocytes/100 WBC (Bld) 20.4 % Critically low 20.5-60.[address] [facility] Comment on above: Performed By: #### M G, CMP, TSH, T7, BNP #### [facility] [address] [place] [address] Dr. Glenys Holly MANUAL DIFF REQ NO Normal [facility] Comment on above: Performed By: #### M G, CMP, TSH, T7, BNP #### [facility] [address] [place] [address] Dr. Glenys Holly MCH (RBC) [Entitic mass] 29.9 pg Normal 26.7-34.[address] [facility] Comment on above: Performed By: #### M G, CMP, TSH, T7, BNP #### [facility] [address] [place] [address] Dr. Glenys Holly MCHC (RBC) [Mass/Vol] 34.0 g/dL Normal 29.9-35.2 [facility] Comment on above: Performed By: #### M G, CMP, TSH, T7, BNP #### [facility] [address] [place] [address] Dr. Glenys Holly MCV (RBC) [Entitic vol] 87.9 fL Normal 81.0-99.[address] [facility] Comment on above: Performed By: #### M G, CMP, TSH, T7, BNP #### [facility] [address] [place] [address] Dr. Glenys Holly MONO # 0.7 103/ul Normal 0.3-0.8 [facility] Comment on above: Performed By: #### M G, CMP, TSH, T7, BNP #### [facility] [address] [place] [address] Dr. Glenys Holly Monocytes/100 WBC (Bld) 9.5 % Normal 1.7-12.0 [facility] Comment on above: Performed By: #### M G, CMP, TSH, T7, BNP #### [facility] [address] [place] [address] Dr. Glenys Holly NEUT # 5.2 103/ul Normal 1.4-6.5 [facility] Comment on above: Performed By: #### M G, CMP, TSH, T7, BNP #### [facility] [address] [place] [address] Dr. Glenys Holly Neutrophils/100 WBC (Bld) 69.0 % Normal 43.0-75.0 [facility] Comment on above: Performed By: #### M G, CMP, TSH, T7, BNP #### [facility] [address] [place] [address] Dr. Glenys Holly Platelet mean volume (Bld) [Entitic vol] 11.2 fL Normal 9.5-13.5 [facility] Comment on above: Performed By: #### M G, CMP, TSH, T7, BNP #### [facility] [address] [place] [address] Dr. Glenys Holly PLT 349 103/ul Normal 150-450 [facility] Comment on above: Performed By: #### M G, CMP, TSH, T7, BNP #### [facility] [address] [place] [address] Dr. Glenys Holly RBC 4.88 106/ul Normal 4.20-5.40 [facility] Comment on above: Performed By: #### M G, CMP, TSH, T7, BNP #### [facility] [address] [place] [address] [address] Glenys Holly WBC 7.6 103/ul Normal 4.0-11.[address] [facility] Comment on above: Performed By: #### M G, CMP, TSH, T7, BNP #### [facility] [address] [place] [address] [address] Glenys Holly PROF 14(COMP METB)on 022 Albumin [Mass/Vol] 3.3 g/dL Critically low 3.4-5.0 [facility] Comment on above: Performed By: #### H STROPN, BNP, CMP ####[facility] [address] [place] [address]DrRatna Holly Albumin/Globulin [Mass ratio] 1.1 {ratio} Normal [facility] Comment on above: Performed By: #### H STROPN, BNP, CMP ####[facility] [address] [place] [address]DrRatna Holly ALP [Catalytic activity/Vol] 78 U/L Normal 46-[address] [facility] Comment on above: Performed By: #### H STROPN, BNP, CMP ####[facility] [address] [place] [address]DrRatna Holly ALT [Catalytic activity/Vol] 10 U/L Critically low 14-[address] [facility] Comment on above: Performed By: #### H STROPN, BNP, CMP ####[facility] [address] [place] [address]DrRatna Holly Anion gap [Moles/Vol] 11.2 mmol/L Normal [facility] Comment on above: Performed By: #### H STROPN, BNP, CMP ####[facility] [address] [place] [address]DrRatna Holly AST [Catalytic activity/Vol] 15 U/L Normal 15-[address] [facility] Comment on above: Performed By: #### H STROPN, BNP, CMP ####[facility] [address] [place] [address]DrRatna Holly Bilirubin [Mass/Vol] 0.4 mg/dL Normal 0.2-1.0 [facility] Comment on above: Performed By: #### H STROPN, BNP, CMP ####[facility] [address] [place] [address]Dr. Glenys Holly Calcium [Mass/Vol] 8.9 mg/dL Normal 8.5-10.1 [facility] Comment on above: Performed By: #### H STROPN, BNP, CMP ####[facility] [address] [place] [address]Dr. Glenys Holly Chloride [Moles/Vol] 98 mmol/L Normal 98-107 [facility] Comment on above: Performed By: #### H STROPN, BNP, CMP ####[facility] [address] [place] [address]Dr. Glenys Holly CO2 [Moles/Vol] 31.1 mmol/L Normal 21.0-32.0 [facility] Comment on above: Performed By: #### H STROPN, BNP, CMP ####[facility] [address] [place], [place] [address]Dr. Glenys Holly Creatinine [Mass/Vol] 1.15 mg/dL Critically high 0.55-1.02 [facility] Comment on above: Performed By: #### H STROPN, BNP, CMP ####[facility] [address] [place] [address]Dr. Glenys Holly EGFR-AF CITIZEN [place] 56 mL/min/1.73m2 Critically low >=60 [facility] Comment on above: Performed By: #### H STROPN, BNP, CMP ####[facility] [address] [place] [address]Dr. Glenys Holly EGFR-NON AF CITIZEN OF [place] 46 mL/min/1.73m2 Critically low >=60 [facility] Comment on above: Performed By: #### H STROPN, BNP, CMP ####[facility] [address] [place] [address]Dr. Glenys Holly Globulin (S) [Mass/Vol] 3.0 g/dL Normal [facility] Comment on above: Performed By: #### H STROPN, BNP, CMP ####[facility] [address] [place] [address]Dr. Glenys Holly Glucose [Mass/Vol] 107 mg/dL Critically high 74-106 [facility] Comment on above: Performed By: #### H STROPN, BNP, CMP ####[facility] [address] [place] [address]Dr. Glenys Holly Potassium [Moles/Vol] 3.3 mmol/L Critically low 3.5-5.[address] [facility] Comment on above: Performed By: #### H STROPN, BNP, CMP ####[facility] [address] [place] [address]Dr. Glenys Holly Protein [Mass/Vol] 6.3 g/dL Critically low 6.4-8.2 [facility] Comment on above: Performed By: #### H STROPN, BNP, CMP ####[facility] [address] [place] [address]Dr. Glenys Holly Sodium [Moles/Vol] 137 mmol/L Normal 136-[address] [facility] Comment on above: Performed By: #### H STROPN, BNP, CMP ####[facility] [address] [place] [address]Dr. Glenys Holly Urea nitrogen [Mass/Vol] 29.0 mg/dL Critically high 7.0-18.[address] [facility] Comment on above: Performed By: #### H STROPN, BNP, CMP ####[facility] [address] [place] [address]Dr. Glenys Holly Urea nitrogen/Creatinine [Mass ratio] 25.2 mg/mg Normal [facility] Comment on above: Performed By: #### H STROPN, BNP, CMP ####[facility] [address] [place] [address]Dr. Glenys Holly TROPONIN, HIGH SENSITIVITYon 05-10-2022 HSTROP 50.5 pg/mL Normal 4.0-51.[address] [facility] Comment on above: Result Comment: CUT- OFF POINTS HAVE BEEN ESTABLISHED BASED ON THE FOURTH UNIVERSAL DEFINITIONS OF MYOCARDIAL INFARCTION. THE UPPER REFERENCE LIMIT (URL) OF TROPONIN, DEFINED THE 99TH PERCENTILE OF cTnI DISTRIBUTION IN A REFERENCE POPULATION, HAS BEEN CONFIRMED THE DECISION THRESHOLD FOR TN DIAGNOSIS. Performed By: #### H STROPN, BNP, CMP ####[facility] [address] [place], [place] [address]KdDr. Glenys Holly XR CHEST 2 Von 05-10-2022 [...] RAMIRO SPENCER Date: 2022-05-10 08:10 Normal [facility] BNPon 05-09-2022 Natriuretic peptide B (Bld) [Mass/Vol] 1975.0 pg/mL Critically high <=1,800.0 [facility] Comment on above: Performed By: #### M G, CMP, TSH, T7, BNP #### [facility] [address] [place] [address] [address] Glenys Holly CBC AUTO DIFFon 05-09-2022 BASO # 0.0 103/ul Normal 0.0-0.1 [facility] Comment on above: Performed By: #### M G, CMP, TSH, T7, BNP #### [facility] [address] [place], [place] [address] Dr. Glenys Holly Basophils/100 WBC (Bld) 0.4 % Normal 0.2-2.0 [facility] Comment on above: Performed By: #### M G, CMP, TSH, T7, BNP #### [facility] [address] [place] [address] [address] Glenys Holly EO # 0.0 103/ul Normal 0.0-0.7 [facility] Comment on above: Performed By: #### M G, CMP, TSH, T7, BNP #### [facility] [address] [place] [address] Dr. Glenys Holly Eosinophils/100 WBC (Bld) 0.0 % Critically low 0.9-7.0 [facility] Comment on above: Performed By: #### M G, CMP, TSH, T7, BNP #### [facility] [address] [place] [address] Dr. Glenys Holly Erythrocyte distribution width (RBC) [Ratio] 15.2 % Critically high 11.0-15.0 [facility] Comment on above: Performed By: #### M G, CMP, TSH, T7, BNP #### [facility] [address] [place] [address] Dr. Glenys Holly Hematocrit (Bld) [Volume fraction] 41.7 % Normal 36.0-48.0 [facility] Comment on above: Performed By: #### M G, CMP, TSH, T7, BNP #### [facility] [address] [place] [address] Dr. Glenys Holly Hemoglobin (Bld) [Mass/Vol] 14.1 g/dL Normal 12.0-16.0 [facility] Comment on above: Performed By: #### M G, CMP, TSH, T7, BNP #### [facility] [address] [place] [address] Dr. Glenys Holly IG # 0.12 10e3/ul Critically high 0.00-0.03 [facility] Comment on above: Performed By: #### M G, CMP, TSH, T7, BNP #### [facility] [address] [place] [address] Dr. Glenys Holly IG % 1.2 % Critically high 0.0-0.5 [facility] Comment on above: Performed By: #### M G, CMP, TSH, T7, BNP #### [facility] [address] [place] [address] Dr. Glenys Holly LYMPH # 1.6 103/ul Normal 1.2-3.8 [facility] Comment on above: Performed By: #### M G, CMP, TSH, T7, BNP #### [facility] [address] [place] [address] Dr. Glenys Holly Lymphocytes/100 WBC (Bld) 16.0 % Critically low 20.5-60.0 [facility] Comment on above: Performed By: #### M G, CMP, TSH, T7, BNP #### [facility] [address] [place] [address] Dr. Glenys Holly MANUAL DIFF REQ NO Normal [facility] Comment on above: Performed By: #### M G, CMP, TSH, T7, BNP #### [facility] [address] [place] [address] Dr. Glenys Holly MCH (RBC) [Entitic mass] 30.0 pg Normal 26.7-34.0 [facility] Comment on above: Performed By: #### M G, CMP, TSH, T7, BNP #### [facility] [address] [place] [address] Dr. Glenys Holly MCHC (RBC) [Mass/Vol] 33.8 g/dL Normal 29.9-35.2 [facility] Comment on above: Performed By: #### M G, CMP, TSH, T7, BNP #### [facility] [address] [place] [address] Dr. Glenys Holly MCV (RBC) [Entitic vol] 88.7 fL Normal 81.0-99.0 [facility] Comment on above: Performed By: #### M G, CMP, TSH, T7, BNP #### [facility] [address] [place] [address] Dr. Glenys Holly MONO # 1.3 103/ul Critically high 0.3-0.8 [facility] Comment on above: Performed By: #### M G, CMP, TSH, T7, BNP #### [facility] [address] [place] [address] Dr. Glenys Holly Monocytes/100 WBC (Bld) 13.2 % Critically high 1.7-12.0 [facility] Comment on above: Performed By: #### M G, CMP, TSH, T7, BNP #### [facility] [address] [place] [address] Dr. Glenys Holly NEUT # 6.8 103/ul Critically high 1.4-6.[address] [facility] Comment on above: Performed By: #### M G, CMP, TSH, T7, BNP #### [facility] [address] [place] [address] Dr. Glenys Holly Neutrophils/100 WBC (Bld) 69.2 % Normal 43.0-75.[address] [facility] Comment on above: Performed By: #### M G, CMP, TSH, T7, BNP #### [facility] [address] [place] [address] Dr. Glenys Holly Platelet mean volume (Bld) [Entitic vol] 11.6 fL Normal 9.5-13.[address] [facility] Comment on above: Performed By: #### M G, CMP, TSH, T7, BNP #### [facility] [address] [place] [address] Dr. Glenys Holly PLT 329 103/ul Normal 150-[address] [facility] Comment on above: Performed By: #### M G, CMP, TSH, T7, BNP #### [facility] [address] [place] [address] Dr. Glenys Holly RBC 4.70 106/ul Normal 4.20-5.[address] [facility] Comment on above: Performed By: #### M G, CMP, TSH, T7, BNP #### [facility] [address] [place] [address] Dr. Glenys Holly WBC 9.9 103/ul Normal 4.0-11.[address] [facility] Comment on above: Performed By: #### M G, CMP, TSH, T7, BNP #### [facility] [address] [place] [address] Dr. Glenys Holly PROF 14(COMP METB)on 022 Albumin [Mass/Vol] 3.0 g/dL Critically low 3.4-5.0 [facility] Comment on above: Performed By: #### M G, CMP, TSH, T7, BNP #### [facility] [address] [address] [address] Glenys Holly Albumin/Globulin [Mass ratio] 1.1 {ratio} Normal [facility] Comment on above: Performed By: #### M G, CMP, TSH, T7, BNP #### [facility] [address] [address] [address] Glenys Holly ALP [Catalytic activity/Vol] 78 U/L Normal 46-116 [facility] Comment on above: Performed By: #### M G, CMP, TSH, T7, BNP #### [facility] [address] [place] [address] Dr. Glenys Holly ALT [Catalytic activity/Vol] 10 U/L Critically low 14-[address] [facility] Comment on above: Performed By: #### M G, CMP, TSH, T7, BNP #### [facility] [address] [place] [address] Dr. Glenys Holly Anion gap [Moles/Vol] 9.6 mmol/L Normal [facility] Comment on above: Performed By: #### M G, CMP, TSH, T7, BNP #### [facility] [address] [place] [address] Dr. Glenys Holly AST [Catalytic activity/Vol] 18 U/L Normal 15-[address] [facility] Comment on above: Performed By: #### M G, CMP, TSH, T7, BNP #### [facility] [address] [address] [address] Glenys Holly Bilirubin [Mass/Vol] 0.3 mg/dL Normal 0.2-1.[address] [facility] Comment on above: Performed By: #### M G, CMP, TSH, T7, BNP #### [facility] [address] [place] [address] Dr. Glenys Holly Calcium [Mass/Vol] 9.1 mg/dL Normal 8.5-10.[address] [facility] Comment on above: Performed By: #### M G, CMP, TSH, T7, BNP #### [facility] [address] [place] [address] Dr. Glenys Holly Chloride [Moles/Vol] 102 mmol/L Normal 98-107 [facility] Comment on above: Performed By: #### M G, CMP, TSH, T7, BNP #### [facility] [address] [address] [address] Glenys Holly CO2 [Moles/Vol] 30.3 mmol/L Normal 21.0-32.0 [facility] Comment on above: Performed By: #### M G, CMP, TSH, T7, BNP #### [facility] [address] [address] [address] Glenys Holly Creatinine [Mass/Vol] 0.83 mg/dL Normal 0.55-1.02 [facility] Comment on above: Performed By: #### M G, CMP, TSH, T7, BNP #### [facility] [address] [address] [address] Glenys Holly EGFR-AF [place]IZ[place] >60 Normal >=60 [facility] Comment on above: Performed By: #### M G, CMP, TSH, T7, BNP #### [facility] [address] [address] [address] Glenys Holly EGFR-NON AF CITIZEN [place] >60 Normal >=[address] [facility] Comment on above: Performed By: #### M G, CMP, TSH, T7, BNP #### [facility] [address] [place] [address] Dr. Glenys Holly Globulin (S) [Mass/Vol] 2.8 g/dL Normal [facility] Comment on above: Performed By: #### M G, CMP, TSH, T7, BNP #### [facility] [address] [address] [address] Glenys Holly Glucose [Mass/Vol] 105 mg/dL Normal 74-106 [facility] Comment on above: Performed By: #### M G, CMP, TSH, T7, BNP #### [facility] [address] [address] [address] Glenys Holly Potassium [Moles/Vol] 2.9 mmol/L Critically low 3.5-5.1 [facility] Comment on above: Performed By: #### M G, CMP, TSH, T7, BNP #### [facility] [address] [address] [address] Glenys Holly Protein [Mass/Vol] 5.8 g/dL Critically low 6.4-8.2 [facility] Comment on above: Performed By: #### M G, CMP, TSH, T7, BNP #### [facility] [address] [place] [address] Dr. Glenys Holly Sodium [Moles/Vol] 138 mmol/L Normal 136-[address] [facility] Comment on above: Performed By: #### M G, CMP, TSH, T7, BNP #### [facility] [address] [place] [address] Dr. Glenys Holly Urea nitrogen [Mass/Vol] 21.0 mg/dL Critically high 7.0-18.[address] [facility] Comment on above: Performed By: #### M G, CMP, TSH, T7, BNP #### [facility] [address] [place] [address] Dr. Glenys Holly Urea nitrogen/Creatinine [Mass ratio] 25.3 mg/mg Normal [facility] Comment on above: Performed By: #### M G, CMP, TSH, T7, BNP #### [facility] [address] [place] [address] Dr. Glenys Holly TROPONIN, HIGH SENSITIVITYon 05-09-2022 HSTROP 49.8 pg/mL Normal 4.0-51.[address] [facility] Comment on above: Result Comment: CUT- OFF POINTS HAVE BEEN ESTABLISHED BASED ON THE FOURTH UNIVERSAL DEFINITIONS OF MYOCARDIAL INFARCTION. THE UPPER REFERENCE LIMIT (URL) OF TROPONIN, DEFINED THE 99TH PERCENTILE OF cTnI DISTRIBUTION IN A REFERENCE POPULATION, HAS BEEN CONFIRMED THE DECISION THRESHOLD FOR TN DIAGNOSIS. Performed By: #### M G, CMP, TSH, T7, BNP #### [facility] [address] [place] [address] Dr. Glenys Holly BNPon 05-08-2022 Natriuretic peptide B (Bld) [Mass/Vol] 2723.0 pg/mL Critically high <=1,800.[address] [facility] Comment on above: Performed By: #### C MP, HSTROPN, BNP ####[facility] [address] [place] [address]Dr. Glenys Holly CBC AUTO DIFFon 05-08-2022 BASO # 0.0 103/ul Normal 0.0-0.[address] [facility] Comment on above: Performed By: #### M G, CMP, TSH, T7, BNP #### [facility] [address] [address] [address] Glenys Holly Basophils/100 WBC (Bld) 0.2 % Normal 0.2-2.0 [facility] Comment on above: Performed By: #### M G, CMP, TSH, T7, BNP #### [facility] [address] [place] [address] Dr. Glenys Holly EO # 0.0 103/ul Normal 0.0-0.7 [facility] Comment on above: Performed By: #### M G, CMP, TSH, T7, BNP #### [facility] [address] [place] [address] Dr. Glenys Holly Eosinophils/100 WBC (Bld) 0.1 % Critically low 0.9-7.[address] [facility] Comment on above: Performed By: #### M G, CMP, TSH, T7, BNP #### [facility] [address] [place] [address] Dr. Glenys Holly Erythrocyte distribution width (RBC) [Ratio] 15.9 % Critically high 11.0-15.0 [facility] Comment on above: Performed By: #### M G, CMP, TSH, T7, BNP #### [facility] [address] [place] [address] Dr. Glenys Holly Hematocrit (Bld) [Volume fraction] 38.0 % Normal 36.0-48.0 [facility] Comment on above: Performed By: #### M G, CMP, TSH, T7, BNP #### [facility] [address] [place] [address] Dr. Glenys Holly Hemoglobin (Bld) [Mass/Vol] 12.5 g/dL Normal 12.0-16.[address] [facility] Comment on above: Performed By: #### M G, CMP, TSH, T7, BNP #### [facility] [address] [place] [address] Dr. Glenys Holly IG # 0.17 10e3/ul Critically high 0.00-0.[address] [facility] Comment on above: Performed By: #### M G, CMP, TSH, T7, BNP #### [facility] [address] [place] [address] Dr. Glenys Holly IG % 1.1 % Critically high 0.0-0.[address] [facility] Comment on above: Performed By: #### M G, CMP, TSH, T7, BNP #### [facility] [address] [place] [address] Dr. Glenys Holly LYMPH # 1.0 103/ul Critically low 1.2-3.[address] [facility] Comment on above: Performed By: #### M G, CMP, TSH, T7, BNP #### [facility] [address] [place] [address] Dr. Glenys Holly Lymphocytes/100 WBC (Bld) 6.2 % Critically low 20.5-60.[address] [facility] Comment on above: Performed By: #### M G, CMP, TSH, T7, BNP #### [facility] [address] [place] [address] Dr. Glenys Holly MANUAL DIFF REQ NO Normal [facility] Comment on above: Performed By: #### M G, CMP, TSH, T7, BNP #### [facility] [address] [place] [address] Dr. Glenys Holly MCH (RBC) [Entitic mass] 30.1 pg Normal 26.7-34.0 [facility] Comment on above: Performed By: #### M G, CMP, TSH, T7, BNP #### [facility] [address] [place] [address] Dr. Glenys Holly MCHC (RBC) [Mass/Vol] 32.9 g/dL Normal 29.9-35.[address] [facility] Comment on above: Performed By: #### M G, CMP, TSH, T7, BNP #### [facility] [address] [place] [address] Dr. Glenys Holly MCV (RBC) [Entitic vol] 91.6 fL Normal 81.0-99.[address] [facility] Comment on above: Performed By: #### M G, CMP, TSH, T7, BNP #### [facility] [address] [place] [address] Dr. Glenys Holly MONO # 0.8 103/ul Normal 0.3-0.8 [facility] Comment on above: Performed By: #### M G, CMP, TSH, T7, BNP #### [facility] [address] [place] [address] Dr. Glenys Holly Monocytes/100 WBC (Bld) 5.2 % Normal 1.7-12.0 [facility] [facility] Comment on above: Performed By: #### M G, CMP, TSH, T7, BNP #### [facility] [address] [place] [address] Dr. Glenys Holly NEUT # 14.0 103/ul Critically high 1.4-6.[address] [facility] Comment on above: Performed By: #### M G, CMP, TSH, T7, BNP #### [facility] [address] [place] [address] Dr. Glenys Holly Neutrophils/100 WBC (Bld) 87.2 % Critically high 43.0-75.0 [facility] Comment on above: Performed By: #### M G, CMP, TSH, T7, BNP #### [facility] [address] [place] [address] Dr. Glenys Holly Platelet mean volume (Bld) [Entitic vol] 11.7 fL Normal 9.5-13.5 [facility] Comment on above: Performed By: #### M G, CMP, TSH, T7, BNP #### [facility] [address] [place] [address] Dr. Glenys Holly PLT 285 103/ul Normal 150-450 [facility] Comment on above: Performed By: #### M G, CMP, TSH, T7, BNP #### [facility] [address] [place] [address] Dr. Glenys Holly RBC 4.15 106/ul Critically low 4.20-5.[address] [facility] Comment on above: Performed By: #### M G, CMP, TSH, T7, BNP #### [facility] [address] [place] [address] Dr. Glenys Holly WBC 16.0 103/ul Critically high 4.0-11.[address] [facility] Comment on above: Performed By: #### M G, CMP, TSH, T7, BNP #### [facility] [address] [place] [address] Dr. Glenys Holly PROF 14(COMP METB)on 022 Albumin [Mass/Vol] 2.7 g/dL Critically low 3.4-5.0 [facility] Comment on above: Performed By: #### C MP, HSTROPN, BNP #### [facility] [address] [place] [address] Dr. Glenys Holly Albumin/Globulin [Mass ratio] 1.0 {ratio} Normal [facility] Comment on above: Performed By: #### C MP, HSTROPN, BNP #### [facility] [address] [place] [address] Dr. Glenys Holly ALP [Catalytic activity/Vol] 73 U/L Normal 46-[address] [facility] Comment on above: Performed By: #### C MP, HSTROPN, BNP #### [facility] [address] [place] [address] Dr. Glenys Holly ALT [Catalytic activity/Vol] 11 U/L Critically low 14-[address] [facility] Comment on above: Performed By: #### C MP, HSTROPN, BNP #### [facility] [address] [place] [address] Dr. Glenys Holly Anion gap [Moles/Vol] 10.5 mmol/L Normal [facility] Comment on above: Performed By: #### C MP, HSTROPN, BNP #### [facility] [address] [place] [address] Dr. Glenys Holly AST [Catalytic activity/Vol] 21 U/L Normal 15-[address] [facility] Comment on above: Performed By: #### C MP, HSTROPN, BNP #### [facility] [address] [place] [address] Dr. Glenys Holly Bilirubin [Mass/Vol] 0.3 mg/dL Normal 0.2-1.[address] [facility] Comment on above: Performed By: #### C MP, HSTROPN, BNP #### [facility] [address] [place] [address] Dr. Glenys Holly Calcium [Mass/Vol] 8.6 mg/dL Normal 8.5-10.1 [facility] Comment on above: Performed By: #### C MP, HSTROPN, BNP #### [facility] [address] [place] [address] Dr. Glenys Holly Chloride [Moles/Vol] 106 mmol/L Normal 98-107 [facility] Comment on above: Performed By: #### C MP, HSTROPN, BNP #### [facility] [address] [place] [address] Dr. Glenys Holly CO2 [Moles/Vol] 29.0 mmol/L Normal 21.0-32.0 [facility] Comment on above: Performed By: #### C MP, HSTROPN, BNP #### [facility] [address] [place] [address] Dr. Glenys Holly Creatinine [Mass/Vol] 0.88 mg/dL Normal 0.55-1.02 [facility] Comment on above: Performed By: #### C MP, HSTROPN, BNP #### [facility] [address] [place] [address] Dr. Glenys Holly EGFR-AF CITIZEN [place] >60 Normal >=60 [facility] Comment on above: Performed By: #### C MP, HSTROPN, BNP #### [facility] [address] [place] [address] Dr. Glenys Holly EGFR-NON AF CITIZEN OF [place] >60 Normal >=60 [facility] Comment on above: Performed By: #### C MP, HSTROPN, BNP #### [facility] [address] [place] [address] Dr. Glenys Holly Globulin (S) [Mass/Vol] 2.6 g/dL Normal [facility] Comment on above: Performed By: #### C MP, HSTROPN, BNP #### [facility] [address] [place] [address] Dr. Glenys Holly Glucose [Mass/Vol] 116 mg/dL Critically high 74-106 [facility] Comment on above: Performed By: #### C MP, HSTROPN, BNP #### [facility] [address] [place] [address] Dr. Glenys Holly Potassium [Moles/Vol] 3.5 mmol/L Normal 3.5-5.[address] [facility] Comment on above: Performed By: #### C MP, HSTROPN, BNP #### [facility] [address] [place] [address] Dr. Glenys Holly Protein [Mass/Vol] 5.3 g/dL Critically low 6.4-8.2 [facility] Comment on above: Performed By: #### C MP, HSTROPN, BNP #### [facility] [address] [place] [address] Dr. Glenys Holly Sodium [Moles/Vol] 142 mmol/L Normal 136-[address] [facility] Comment on above: Performed By: #### C MP, HSTROPN, BNP #### [facility] [address] [place] [address] Dr. Glenys Holly Urea nitrogen [Mass/Vol] 23.0 mg/dL Critically high 7.0-18.[address] [facility] Comment on above: Performed By: #### C MP, HSTROPN, BNP #### [facility] [address] [place] [address] Dr. Glenys Holly Urea nitrogen/Creatinine [Mass ratio] 26.1 mg/mg [facility] Comment on above: Performed By: #### C MP, HSTROPN, BNP #### [facility] [address] [place] [address] Dr. Glenys Holly TROPONIN, HIGH SENSITIVITYon 11-28-2022 HSTROP 60.8 pg/mL Critically high 4.0-51.3 [facility] Comment on above: Result Comment: CUT- OFF POINTS HAVE BEEN ESTABLISHED BASED ON THE FOURTH UNIVERSAL DEFINITIONS OF MYOCARDIAL INFARCTION. THE UPPER REFERENCE LIMIT (URL) OF TROPONIN, DEFINED THE 99TH PERCENTILE OF cTnI DISTRIBUTION IN A REFERENCE POPULATION, HAS BEEN CONFIRMED THE DECISION THRESHOLD FOR [place] DIAGNOSIS. Performed By: #### C MP, HSTROPN, BNP ####[facility] [address] [place] [address]DrRatna Holly BNPon 05-07-2022 Natriuretic peptide B (Bld) [Mass/Vol] 1476.0 pg/mL Normal <=1,800.0 [facility] Comment on above: Performed By: #### C MP, HSTROPN, BNP ####[facility] [address] [place] [address]DrRatna Holly CBC AUTO DIFFon 05-07-2022 BASO # 0.0 103/ul Normal 0.0-0.[address] [facility] Comment on above: Performed By: #### M G, CMP, TSH, T7, BNP #### [facility] [address] [address] [address] Glenys Holly Basophils/100 WBC (Bld) 0.1 % Critically low 0.2-2.0 [facility] Comment on above: Performed By: #### M G, CMP, TSH, T7, BNP #### [facility] [address] [address] [address] Glenys Holly EO # 0.0 103/ul Normal 0.0-0.7 [facility] Comment on above: Performed By: #### M G, CMP, TSH, T7, BNP #### [facility] [address] [place] [address] Dr. Glenys Holly Eosinophils/100 WBC (Bld) 0.0 % Critically low 0.9-7.0 [facility] Comment on above: Performed By: #### M G, CMP, TSH, T7, BNP #### [facility] [address] [address] [address] Glenys Holly Erythrocyte distribution width (RBC) [Ratio] 16.3 % Critically high 11.0-15.[address] [facility] Comment on above: Performed By: #### M G, CMP, TSH, T7, BNP #### [facility] [address] [place] [address] Dr. Glenys Holly Hematocrit (Bld) [Volume fraction] 34.1 % Critically low 36.0-48.0 [facility] Comment on above: Performed By: #### M G, CMP, TSH, T7, BNP #### [facility] [address] [place] [address] Dr. Glenys Holly Hemoglobin (Bld) [Mass/Vol] 11.2 g/dL Critically low 12.0-16.[address] [facility] Comment on above: Performed By: #### M G, CMP, TSH, T7, BNP #### [facility] [address] [place] [address] Dr. Glenys Holly IG # 0.22 10e3/ul Critically high 0.00-0.[address] [facility] Comment on above: Performed By: #### M G, CMP, TSH, T7, BNP #### [facility] [address] [place] [address] Dr. Glenys Holly IG % 1.0 % Critically high 0.0-0.[address] [facility] Comment on above: Performed By: #### M G, CMP, TSH, T7, BNP #### [facility] [address] [place] [address] Dr. Glenys Holly LYMPH # 1.3 103/ul Normal 1.2-3.8 [facility] Comment on above: Performed By: #### M G, CMP, TSH, T7, BNP #### [facility] [address] [place] [address] Dr. Glenys Holly Lymphocytes/100 WBC (Bld) 6.0 % Critically low 20.5-60.[address] [facility] Comment on above: Performed By: #### M G, CMP, TSH, T7, BNP #### [facility] [address] [place] [address] Dr. Glenys Holly MANUAL DIFF REQ NO Normal [facility] Comment on above: Performed By: #### M G, CMP, TSH, T7, BNP #### [facility] [address] [place] [address] Dr. Glenys Holly MCH (RBC) [Entitic mass] 30.7 pg Normal 26.7-34.0 [facility] Comment on above: Performed By: #### M G, CMP, TSH, T7, BNP #### [facility] [address] [place] [address] Dr. Glenys Holly MCHC (RBC) [Mass/Vol] 32.8 g/dL Normal 29.9-35.2 [facility] Comment on above: Performed By: #### M G, CMP, TSH, T7, BNP #### [facility] [address] [place] [address] Dr. Glenys Holly MCV (RBC) [Entitic vol] 93.4 fL Normal 81.0-99.[address] [facility] Comment on above: Performed By: #### M G, CMP, TSH, T7, BNP #### [facility] [address] [place] [address] Dr. Glenys Holly MONO # 1.1 103/ul Critically high 0.3-0.8 [facility] Comment on above: Performed By: #### M G, CMP, TSH, T7, BNP #### [facility] [address] [place] [address] Dr. Glenys Holly Monocytes/100 WBC (Bld) 4.8 % Normal 1.7-12.0 [facility] Comment on above: Performed By: #### M G, CMP, TSH, T7, BNP #### [facility] [address] [place] [address] Dr. Glenys Holly NEUT # 19.4 103/ul Critically high 1.4-6.[address] [facility] Comment on above: Performed By: #### M G, CMP, TSH, T7, BNP #### [facility] [address] [place] [address] Dr. Glenys Holly Neutrophils/100 WBC (Bld) 88.1 % Critically high 43.0-75.[address] [facility] Comment on above: Performed By: #### M G, CMP, TSH, T7, BNP #### [facility] [address] [address] [address] Glenys Holly Platelet mean volume (Bld) [Entitic vol] 11.6 fL Normal 9.5-13.[address] [facility] Comment on above: Performed By: #### M G, CMP, TSH, T7, BNP #### [facility] [address] [address] [address] Glenys Hloly PLT 309 103/ul Normal 150-[address] [facility] Comment on above: Performed By: #### M G, CMP, TSH, T7, BNP #### [facility] [address] [address] [address] Glenys Holly RBC 3.65 106/ul Critically low 4.20-5.[address] [facility] Comment on above: Performed By: #### M G, CMP, TSH, T7, BNP #### [facility] [address] [address] [address] Glenys Holly WBC 22.0 103/ul Critically high 4.0-11.[address] [facility] Comment on above: Performed By: #### M G, CMP, TSH, T7, BNP #### [facility] [address] [address] [address] Glenys Holly PROF 14(COMP METB)on 022 Albumin [Mass/Vol] 2.5 g/dL Critically low 3.4-5.0 [facility] Comment on above: Performed By: #### C MP, HSTROPN, BNP ####[facility] [address] [place] [address]Dr. Glenys Holly Albumin/Globulin [Mass ratio] 1.0 {ratio} Normal [facility] Comment on above: Performed By: #### C MP, HSTROPN, BNP ####[facility] [address] [place] [id number]. Glenys Holly ALP [Catalytic activity/Vol] 69 U/L Normal 46-[address] [facility] Comment on above: Performed By: #### C MP, HSTROPN, BNP ####[facility] [address] [place] [address]Dr. Glenys Holly ALT [Catalytic activity/Vol] 12 U/L Critically low 14-59 [facility] Comment on above: Performed By: #### C MP, HSTROPN, BNP ####[facility] [address] [place] [address]Dr. Glenys Holly Anion gap [Moles/Vol] 10.9 mmol/L Normal [facility] Comment on above: Performed By: #### C MP, HSTROPN, BNP ####[facility] [address] [place], [place] [address]Dr. Glenys Holly AST [Catalytic activity/Vol] 25 U/L Normal 15-37 [facility] Comment on above: Performed By: #### C MP, HSTROPN, BNP ####[facility] [address] [place], [place] [address]Dr. Glenys Holly Bilirubin [Mass/Vol] 0.1 mg/dL Critically low 0.2-1.0 [facility] Comment on above: Performed By: #### C MP, HSTROPN, BNP ####[facility] [address] [place], [place] [address]Dr. Glenys Holly Calcium [Mass/Vol] 9.1 mg/dL Normal 8.5-10.1 [facility] Comment on above: Performed By: #### C MP, HSTROPN, BNP ####[facility] [address] [place], [place] [address]Dr. Glenys Holly Chloride [Moles/Vol] 110 mmol/L Critically high 98-107 [facility] Comment on above: Performed By: #### C MP, HSTROPN, BNP ####[facility] [address] [place], [place] [address]Dr. Glenys Holly CO2 [Moles/Vol] 24.8 mmol/L Normal 21.0-32.0 [facility] Comment on above: Performed By: #### C MP, HSTROPN, BNP ####[facility] [address] [place] [address]Dr. Glenys Holly Creatinine [Mass/Vol] 0.87 mg/dL Normal 0.55-1.[address] [facility] Comment on above: Performed By: #### C MP, HSTROPN, BNP ####[facility] [address] [place] [address]Dr. Glenys Holly EGFR-AF [place]IZ[place] >60 Normal >=[address] [facility] Comment on above: Performed By: #### C MP, HSTROPN, BNP ####[facility] [address] [place] [address]Dr. Glenys Holly EGFR-NON AF CITIZEN [place] >60 Normal >=[address] [facility] Comment on above: Performed By: #### C MP, HSTROPN, BNP ####[facility] [address] [place] [address]Dr. Glenys Holly Globulin (S) [Mass/Vol] 2.5 g/dL Normal [facility] Comment on above: Performed By: #### C MP, HSTROPN, BNP ####[facility] [address] [place], [place] [address]Dr. Glenys Holly Glucose [Mass/Vol] 128 mg/dL Critically high 74-106 [facility] Comment on above: Performed By: #### C MP, HSTROPN, BNP ####[facility] [address] [place] [address]Dr. Glenys Holly Potassium [Moles/Vol] 4.7 mmol/L Normal 3.5-5.[address] [facility] Comment on above: Performed By: #### C MP, HSTROPN, BNP ####[facility] [address] [place] [address]Dr. Glenys Holly Protein [Mass/Vol] 5.0 g/dL Critically low 6.4-8.2 [facility] Comment on above: Performed By: #### C MP, HSTROPN, BNP ####[facility] [address] [place], [place] [address]Dr. Glenys Holly Sodium [Moles/Vol] 141 mmol/L Normal 136-145 [facility] Comment on above: Performed By: #### C MP, HSTROPN, BNP ####[facility] [address] [place], [place] [address]Rb. Glenys Holly Urea nitrogen [Mass/Vol] 28.0 mg/dL Critically high 7.0-18.0 [facility] Comment on above: Performed By: #### C MP, HSTROPN, BNP ####[facility] [address] [place], [place] [address]Pq. Glenys Holly Urea nitrogen/Creatinine [Mass ratio] 32.2 mg/mg Normal [facility] Comment on above: Performed By: #### C MP, HSTROPN, BNP ####[facility] [address] [place], [place] [address]Kz. Glenys Holly TROPONIN, HIGH SENSITIVITYon 05-07-2022 HSTROP 78.5 pg/mL Critically high 4.0-51.3 [facility] Comment on above: Result Comment: CUT- OFF POINTS HAVE BEEN ESTABLISHED BASED ON THE FOURTH UNIVERSAL DEFINITIONS OF MYOCARDIAL INFARCTION. THE UPPER REFERENCE LIMIT (URL) OF TROPONIN, DEFINED THE 99TH PERCENTILE OF cTnI DISTRIBUTION IN A REFERENCE POPULATION, HAS BEEN CONFIRMED THE DECISION THRESHOLD FOR TN DIAGNOSIS. Performed By: #### C MP, HSTROPN, BNP ####[facility] [address] [place], [place] [address]Qg. Glenys Holly XR CHEST 2 Von 05-07-2022 [...] [place] Date: 2022-05-07 10:34 Normal [facility] BNPon 05-06-2022 Natriuretic peptide B (Bld) [Mass/Vol] 1143.0 pg/mL Normal <=1,800.0 [facility] Comment on above: Performed By: #### C MP, BNP ####[facility] [address] [place] [address]Dr. Glenys Holly CBC AUTO DIFFon 05-06-2022 BASO # 0.0 103/ul Normal 0.0-0.1 [facility] Comment on above: Performed By: #### M G, CMP, TSH, T7, BNP #### [facility] [address] [address] [address] Glenys Holly Basophils/100 WBC (Bld) 0.1 % Critically low 0.2-2.0 [facility] Comment on above: Performed By: #### M G, CMP, TSH, T7, BNP #### [facility] [address] [address] [address] Glenys Holly EO # 0.0 103/ul Normal 0.0-0.7 [facility] Comment on above: Performed By: #### M G, CMP, TSH, T7, BNP #### [facility] [address] [address] [address] Glenys Holly Eosinophils/100 WBC (Bld) 0.0 % Critically low 0.9-7.0 [facility] Comment on above: Performed By: #### M G, CMP, TSH, T7, BNP #### [facility] [address] [address] [address] Glenys Holly Erythrocyte distribution width (RBC) [Ratio] 15.8 % Critically high 11.0-15.0 [facility] Comment on above: Performed By: #### M G, CMP, TSH, T7, BNP #### [facility] [address] [place] [address] Dr. Glenys Holly Hematocrit (Bld) [Volume fraction] 36.7 % Normal 36.0-48.[address] [facility] Comment on above: Performed By: #### M G, CMP, TSH, T7, BNP #### [facility] [address] [place] [address] Dr. Glenys Holly Hemoglobin (Bld) [Mass/Vol] 12.3 g/dL Normal 12.0-16.0 [facility] Comment on above: Performed By: #### M G, CMP, TSH, T7, BNP #### [facility] [address] [place] [address] Dr. Glenys Holly IG # 0.10 10e3/ul Critically high 0.00-0.[address] [facility] Comment on above: Performed By: #### M G, CMP, TSH, T7, BNP #### [facility] [address] [place] [address] Dr. Glenys Holly IG % 0.5 % Normal 0.0-0.[address] [facility] Comment on above: Performed By: #### M G, CMP, TSH, T7, BNP #### [facility] [address] [place] [address] Dr. Glenys Holly LYMPH # 1.4 103/ul Normal 1.2-3.8 [facility] Comment on above: Performed By: #### M G, CMP, TSH, T7, BNP #### [facility] [address] [place] [address] Dr. Glenys Holly Lymphocytes/100 WBC (Bld) 7.2 % Critically low 20.5-60.[address] [facility] Comment on above: Performed By: #### M G, CMP, TSH, T7, BNP #### [facility] [address] [place] [address] Dr. Glenys Holly MANUAL DIFF REQ NO Normal [facility] Comment on above: Performed By: #### M G, CMP, TSH, T7, BNP #### [facility] [address] [place] [address] Dr. Glenys Holly MCH (RBC) [Entitic mass] 30.9 pg Normal 26.7-34.0 [facility] Comment on above: Performed By: #### M G, CMP, TSH, T7, BNP #### [facility] [address] [place] [address] Dr. Glenys Holly MCHC (RBC) [Mass/Vol] 33.5 g/dL Normal 29.9-35.2 [facility] Comment on above: Performed By: #### M G, CMP, TSH, T7, BNP #### [facility] [address] [place] [address] Dr. Glenys Holly MCV (RBC) [Entitic vol] 92.2 fL Normal 81.0-99.0 [facility] Comment on above: Performed By: #### M G, CMP, TSH, T7, BNP #### [facility] [address] [place] [address] Dr. Glenys Holly MONO # 0.9 103/ul Critically high 0.3-0.8 [facility] Comment on above: Performed By: #### M G, CMP, TSH, T7, BNP #### [facility] [address] [place] [address] Dr. Glenys Holly Monocytes/100 WBC (Bld) 4.6 % Normal 1.7-12.0 [facility] Comment on above: Performed By: #### M G, CMP, TSH, T7, BNP #### [facility] [address] [place] [address] Dr. Glenys Holly NEUT # 17.4 103/ul Critically high 1.4-6.5 [facility] Comment on above: Performed By: #### M G, CMP, TSH, T7, BNP #### [facility] [address] [place] [address] Dr. Glenys Holly Neutrophils/100 WBC (Bld) 87.6 % Critically high 43.0-75.0 [facility] Comment on above: Performed By: #### M G, CMP, TSH, T7, BNP #### [facility] [address] [place] [address] Dr. Glenys Holly Platelet mean volume (Bld) [Entitic vol] 11.2 fL Normal 9.5-13.[address] [facility] Comment on above: Performed By: #### M G, CMP, TSH, T7, BNP #### [facility] [address] [address] [address] Glenys Holly PLT 310 103/ul Normal 150-[address] [facility] Comment on above: Performed By: #### M G, CMP, TSH, T7, BNP #### [facility] [address] [address] [address] Glenys Holly RBC 3.98 106/ul Critically low 4.20-5.[address] [facility] Comment on above: Performed By: #### M G, CMP, TSH, T7, BNP #### [facility] [address] [place] [address] Dr. Glenys Holly WBC 19.8 103/ul Critically high 4.0-11.[address] [facility] Comment on above: Performed By: #### M G, CMP, TSH, T7, BNP #### [facility] [address] [place] [address] Dr. Glenys Holly LACTATE/LACTIC ACIDon 2021 Lactate [Moles/Vol] 1.1 mmol/L Normal 0.4-1.[address] [facility] Comment on above: Performed By: #### M G, CMP, TSH, T7, BNP #### [facility] [address] [address] [address] Glenys Holly POINT OF CARE GLUCOSEon 04-12 Glucose [Mass/Vol] 164 mg/dL Critically high 74-106 [facility] Comment on above: Performed By: #### M G, CMP, TSH, T7, BNP #### [facility] [address] [address] [address] Glenys Holly PROF 14(COMP METB)on 022 Albumin [Mass/Vol] 2.6 g/dL Critically low 3.4-5.0 [facility] Comment on above: Performed By: #### C MP, BNP ####[facility] [address] [address]Dr. Glenys Holly Albumin/Globulin [Mass ratio] 1.0 {ratio} Normal [facility] Comment on above: Performed By: #### C MP, BNP ####[facility] [address] [address]Dr. Glenys Avni ALP [Catalytic activity/Vol] 88 U/L Normal 46-[address] [facility] Comment on above: Performed By: #### C MP, BNP ####[facility] [address] [place], [place] [address]Dr. Glenys Avni ALT [Catalytic activity/Vol] 1 U/L Critically low 14-[address] [facility] Comment on above: Performed By: #### C MP, BNP ####[facility] [address] [place], [place] [address]Dr. Glenys Holly Anion gap [Moles/Vol] 9.9 mmol/L Normal [facility] Comment on above: Performed By: #### C MP, BNP ####[facility] [address] [place], [place] [address]Dr. Glenys Holly AST [Catalytic activity/Vol] 19 U/L Normal 15-[address] [facility] Comment on above: Performed By: #### C MP, BNP ####[facility] [address] [place], [place] [address]Dr. Glenys Holly Bilirubin [Mass/Vol] 0.2 mg/dL Normal 0.2-1.[address] [facility] Comment on above: Performed By: #### C MP, BNP ####[facility] [address] [place], [place] [address]Dr. Glenys Holly Calcium [Mass/Vol] 8.7 mg/dL Normal 8.5-10.1 [facility] Comment on above: Performed By: #### C MP, BNP ####[facility] [address] [place], [place] [address]Dr. Glenys Holly Chloride [Moles/Vol] 108 mmol/L Critically high 98-107 [facility] Comment on above: Performed By: #### C MP, BNP ####[facility] [address] [place], [place] [address]Dr. Glenys Holly CO2 [Moles/Vol] 25.2 mmol/L Normal 21.0-32.0 [facility] Comment on above: Performed By: #### C MP, BNP ####[place] [address] [address]Dr. Glenys Holly Creatinine [Mass/Vol] 0.80 mg/dL Normal 0.55-1.[address] [facility] Comment on above: Performed By: #### C MP, BNP ####[place] [address] [place], [place] [address]Dr. Glenys Holly EGFR-AF CITIZEN OF [place] >60 Normal >=[address] [facility] Comment on above: Performed By: #### C MP, BNP ####[place] [address] [place], [place] [address]Dr. Glenys Holly EGFR-NON AF CITIZEN OF [place] >60 Normal >=[address] [facility] Comment on above: Performed By: #### C MP, BNP ####[place] [address] [place], [place] [address]Dr. Glenys Holly Globulin (S) [Mass/Vol] 2.7 g/dL Normal [facility] Comment on above: Performed By: #### C MP, BNP ####[place] [address] [place], [place] [address]Dr. Glenys Holly Glucose [Mass/Vol] 123 mg/dL Critically high 74-106 T [facility] Comment on above: Performed By: #### C MP, BNP ####[place] [address] [place], [place] [address]Dr. Glenys Holly Potassium [Moles/Vol] 4.1 mmol/L Normal 3.5-5.[address] [facility] Comment on above: Performed By: #### C MP, BNP ####[place] [address] [place], [place] [address]Dr. Glenys Holly Protein [Mass/Vol] 5.3 g/dL Critically low 6.4-8.2 [facility] [place] Comment on above: Performed By: #### C MP, BNP ####[place] [address] [place], [place] [address]Dr. Glenys Holly Sodium [Moles/Vol] 139 mmol/L Normal 136-145 [facility] Comment on above: Performed By: #### C MP, BNP ####[place] [address] [address]Dr. Glenys Holly Urea nitrogen [Mass/Vol] 22.0 mg/dL Critically high 7.0-18.[address] [facility] Comment on above: Performed By: #### C MP, BNP ####[place] [address] [place] [id number]. Glenys Holly Urea nitrogen/Creatinine [Mass ratio] 27.5 mg/mg Normal [facility] Comment on above: Performed By: #### C MP, BNP ####[place] [address] [address]Dr. Glenys Holly T3, TOTAL (TRIIODOTHYRONINE) on 05-06-2022 T3, TOTAL 69 ng/dL Critically low 71-[address] [facility] Comment on above: Performed By: #### M G, CMP, TSH, T7, BNP #### [facility] [address] [address] [address] Glenys Holly TROPONIN, HIGH SENSITIVITYon 05-06-2022 HSTROP 141.0 pg/mL Critically high 4.0-51.[address] [facility] Comment on above: Result Comment: CUT- OFF POINTS HAVE BEEN ESTABLISHED BASED ON THE FOURTH UNIVERSAL DEFINITIONS OF MYOCARDIAL INFARCTION. THE UPPER REFERENCE LIMIT (URL) OF TROPONIN, DEFINED THE 99TH PERCENTILE OF cTnI DISTRIBUTION IN A REFERENCE POPULATION, HAS BEEN CONFIRMED THE DECISION THRESHOLD FOR TN DIAGNOSIS. Performed By: #### M G, CMP, TSH, T7, BNP #### [facility] [address] [address] [address] Glenys Holly AMYLASEon 05-05-2022 Amylase [Catalytic activity/Vol] 26 U/L Normal 25-115 [facility] Comment on above: Performed By: #### M G, CMP, TSH, T7, BNP #### [facility] [address] [address] [address] Glenys Holly BNPon 05-05-2022 Natriuretic peptide B (Bld) [Mass/Vol] 811.0 pg/mL Normal <=1,800.0 [facility] Comment on above: Performed By: #### M G, CMP, TSH, T7, BNP #### [facility] [address] [address] [address] Glenys Holly CARDIAC ADEEL 3-6on 2 CK [Catalytic activity/Vol] 33 U/L Normal 26-192 [facility] Comment on above: Performed By: #### C MREP ####[place] [address] [address]Dr. Glenys Holly CK.MB [Mass/Vol] 1.13 ng/mL Normal <=3.60 [facility] Comment on above: Performed By: #### C MREP ####[place] [address] [address]Dr. Glenys Holly HSTROP 164.3 pg/mL Critically high 4.0-51.3 [facility] Comment on above: Result Comment: CUT- OFF POINTS HAVE BEEN ESTABLISHED BASED ON THE FOURTH UNIVERSAL DEFINITIONS OF MYOCARDIAL INFARCTION. THE UPPER REFERENCE LIMIT (URL) OF TROPONIN, DEFINED THE 99TH PERCENTILE OF cTnI DISTRIBUTION IN A REFERENCE POPULATION, HAS BEEN CONFIRMED THE DECISION THRESHOLD FOR TN DIAGNOSIS. Performed By: #### C MREP ####[place] [address] [address]Dr. Glenys Holly CK [Catalytic activity/Vol] 38 U/L Normal 26-[address] [facility] Comment on above: Performed By: #### M G, CMP, TSH, T7, BNP #### [facility] [address] [address] [address] Glenys Holly CK.MB [Mass/Vol] 0.91 ng/mL Normal <=3.60 [facility] Comment on above: Performed By: #### M G, CMP, TSH, T7, BNP #### [facility] [address] [address] [address] Glenys Holly HSTROP 178.2 pg/mL Critically high 4.0-51.3 [facility] Comment on above: Result Comment: CUT- OFF POINTS HAVE BEEN ESTABLISHED BASED ON THE FOURTH UNIVERSAL DEFINITIONS OF MYOCARDIAL INFARCTION. THE UPPER REFERENCE LIMIT (URL) OF TROPONIN, DEFINED THE 99TH PERCENTILE OF cTnI DISTRIBUTION IN A REFERENCE POPULATION, HAS BEEN CONFIRMED THE DECISION THRESHOLD FOR TN DIAGNOSIS. Performed By: #### M G, CMP, TSH, T7, BNP #### [facility] [address] [address] [address] Glenys Holly CARDIAC ADEEL ADMITon 022 CK [Catalytic activity/Vol] 29 U/L Normal 26-192 [facility] Comment on above: Performed By: #### M G, CMP, TSH, T7, BNP #### [facility] [address] [address] [address] Glenys Holly CK.MB [Mass/Vol] 0.73 ng/mL Normal <=3.[address] [facility] Comment on above: Performed By: #### M G, CMP, TSH, T7, BNP #### [facility] [address] [place] [address] Dr. Glenys Holly HSTROP 191.6 pg/mL Critically high 4.0-51.3 [facility] Comment on above: Result Comment: CUT- OFF POINTS HAVE BEEN ESTABLISHED BASED ON THE FOURTH UNIVERSAL DEFINITIONS OF MYOCARDIAL INFARCTION. THE UPPER REFERENCE LIMIT (URL) OF TROPONIN, DEFINED THE 99TH PERCENTILE OF cTnI DISTRIBUTION IN A REFERENCE POPULATION, HAS BEEN CONFIRMED THE DECISION THRESHOLD FOR TN DIAGNOSIS. Performed By: #### M G, CMP, TSH, T7, BNP #### [facility] [address] [address] [address] Glenys Holly NEO 79 ng/mL Normal 9-82 [facility] Comment on above: Performed By: #### M G, CMP, TSH, T7, BNP #### [facility] [address] [address] [address] Glenys Holly CBC W MANUAL DIFFon 05-05-20 22 ANISOCYTOSIS 1+ Normal [facility] Comment on above: Performed By: #### M G, CMP, TSH, T7, BNP #### [facility] [address] [address] [address] Glenys Holly ATYPICAL LYMPH # Normal [facility] Comment on above: Performed By: #### M G, CMP, TSH, T7, BNP #### [facility] [address] [place] [address] Dr. Glenys Holly ATYPICAL LYMPH % Normal [facility] Comment on above: Performed By: #### M G, CMP, TSH, T7, BNP #### [facility] [address] [address] [address] Glenys Holly BAND # 0.2 103/ul Normal 0.0-0.3 [facility] Comment on above: Performed By: #### M G, CMP, TSH, T7, BNP #### [facility] [address] [place] [address] Dr. Glenys Holly BAND % 1 % Normal 0-5 [facility] Comment on above: Performed By: #### M G, CMP, TSH, T7, BNP #### [facility] [address] [place] [address] Dr. Glenys Holly BASOM # 0.00 103/ul Normal 0.00-0.[address] [facility] Comment on above: Performed By: #### M G, CMP, TSH, T7, BNP #### [facility] [address] [place] [address] Dr. Glenys Holly BASOM % 0.0 % Critically low 0.2-2.[address] [facility] Comment on above: Performed By: #### M G, CMP, TSH, T7, BNP #### [facility] [address] [place] [address] Dr. Glenys Holly BLAST # Normal [facility] Comment on above: Performed By: #### M G, CMP, TSH, T7, BNP #### [facility] [address] [place] [address] Dr. Glenys Holly BLAST % Normal [facility] Comment on above: Performed By: #### M G, CMP, TSH, T7, BNP #### [facility] [address] [place] [address] Dr. Glenys Holly CORRECTED WBC Normal 4.0-11.[address] [facility] Comment on above: Performed By: #### M G, CMP, TSH, T7, BNP #### [facility] [address] [address] [address] Glenys Holly EOS # 0.00 103/ul Normal 0.00-0.70 [facility] Comment on above: Performed By: #### M G, CMP, TSH, T7, BNP #### [facility] [address] [address] [address] Glenys Holly EOS% 0.0 % Critically low 0.9-7.0 [facility] Comment on above: Performed By: #### M G, CMP, TSH, T7, BNP #### [facility] [address] [address] [address] Glenys Holly HCT 41.5 % Normal 36.0-48.0 [facility] Comment on above: Performed By: #### M G, CMP, TSH, T7, BNP #### [facility] [address] [place] [address] Dr. Glenys Holly HGB 14.2 g/dl Normal 12.0-16.[address] [facility] Comment on above: Performed By: #### M G, CMP, TSH, T7, BNP #### [facility] [address] [address] [address] Glenys Holly LYMPHM # 0.96 103/ul Critically low 1.20-3.[address] [facility] Comment on above: Performed By: #### M G, CMP, TSH, T7, BNP #### [facility] [address] [address] [address] Glenys Holly LYMPHM% 6.0 % Critically low 20.5-60.[address] [facility] Comment on above: Performed By: #### M G, CMP, TSH, T7, BNP #### [facility] [address] [place] [address] Dr. Glenys Holly MCH 31.0 pg Normal 26.7-34.[address] [facility] Comment on above: Performed By: #### M G, CMP, TSH, T7, BNP #### [facility] [address] [address] [address] Glenys Holly MCHC 34.2 g/dl Normal 29.9-35.2 [facility] Comment on above: Performed By: #### M G, CMP, TSH, T7, BNP #### [facility] [address] [address] [address] Glenys Holly MCV 90.6 fL Normal 81.0-99.[address] [facility] Comment on above: Performed By: #### M G, CMP, TSH, T7, BNP #### [facility] [address] [place] [address] Dr. Glenys Holly METAMYELOCYTE # Normal [facility] Comment on above: Performed By: #### M G, CMP, TSH, T7, BNP #### [facility] [address] [place] [address] Dr. Glenys Holly METAMYELOCYTE % Normal [facility] Comment on above: Performed By: #### M G, CMP, TSH, T7, BNP #### [facility] [address] [place] [address] Dr. Glenys Holly MONOM# 2.56 103/ul Critically high 0.30-0.[address] [facility] Comment on above: Performed By: #### M G, CMP, TSH, T7, BNP #### [facility] [address] [place] [address] Dr. Glenys Holly MONOM% 16.0 % Critically high 1.7-12.[address] [facility] Comment on above: Performed By: #### M G, CMP, TSH, T7, BNP #### [facility] [address] [place] [address] Dr. Glenys Holly MPV 11.1 fL Normal 9.5-13.[address] [facility] Comment on above: Performed By: #### M G, CMP, TSH, T7, BNP #### [facility] [address] [place] [address] Dr. Glenys Holly MYELOCYTE # Normal [facility] Comment on above: Performed By: #### M G, CMP, TSH, T7, BNP #### [facility] [address] [place] [address] Dr. Glenys Holly MYELOCYTE % Normal [facility] Comment on above: Performed By: #### M G, CMP, TSH, T7, BNP #### [facility] [address] [address] [address] Glenys Holly NR Normal [facility] Comment on above: Performed By: #### M G, CMP, TSH, T7, BNP #### [facility] [address] [address] [address] Glenys Holly PLT 352 103/ul Normal 150-[address] [facility] Comment on above: Performed By: #### M G, CMP, TSH, T7, BNP #### [facility] [address] [address] [address] Glenys Holly RBC 4.58 106/ul Normal 4.20-5.[address] [facility] Comment on above: Performed By: #### M G, CMP, TSH, T7, BNP #### [facility] [address] [place] [address] Dr. Glenys Holly RDW 15.2 % Critically high 11.0-15.[address] [facility] Comment on above: Performed By: #### M G, CMP, TSH, T7, BNP #### [facility] [address] [place] [address] Dr. Glenys Holly SEG # 12.32 103/ul Critically high 1.40-6.[address] [facility] Comment on above: Performed By: #### M G, CMP, TSH, T7, BNP #### [facility] [address] [address] [address] Glensy Holly SEG % 77.0 % Critically high 43.0-75.[address] [facility] Comment on above: Performed By: #### M G, CMP, TSH, T7, BNP #### [facility] [address] [address] [address] Glenys Holly WBC 16.0 103/ul Critically high 4.0-11.[address] [facility] Comment on above: Performed By: #### M G, CMP, TSH, T7, BNP #### [facility] [address] [address] [address] Glenys Holly CTA CHEST WO W [...] YULISSA TALBERT Date: 2022-05-05 09:32 Normal [facility] CULTURE BLOODon 05-05-2022 Microscopic examination of blood, culture Culture Observations: NO GROWTH AT 5 DAYS. Normal [facility] Comment on above: Performed By: #### B LDCX2 ####[facility] [address] [place] [id number] Holly Microscopic examination of blood, culture Culture Observations: NO GROWTH AT 5 DAYS. Normal [facility] Comment on above: Performed By: #### B LDCX1 ####[facility] [address] [place], [place] [address]UvRatna Holly CULTURE URINEon 05-05-2022 CULTURE URINE Culture Observations : LIGHT GROWTH OF MIXED GENITAL NIDA. NO POTENTIAL PATHOGENS SEEN. Normal [facility] Comment on above: Performed By: #### U RCX ####[facility] [address] [place], [place] [address]GkDr. Glenys Holly Covid-19 PCR (CVDTB)on 04-12 SARS-CoV-2 (COVID-19) RNA KINZA+probe Ql (Unsp spec) Not detected Normal NOT DETECTED [facility] Comment on above: Result Comment: When diagnostic [...] for this test is supported by the Back End Web Developer of Health and Human Service's declaration that [...] used). Performed By: #### C VDTB #### [facility] [address] [place], [place] [address] Dr. Glenys Holly ECHOCARDIO M/2D COMPLETEon 1 07-05-2021 ECHOCARDIO M/2D COMPLETE Patient: JUDITH KHAN Exam Date: 05/05/2022 : 1945 Gender:F Ordering : DR RODRICK SAMS . Admission #: [id number] Family : Order #: [id number] CLICK HERE TO VIEW EXAM ECHOCARDIOGRAM REPORT [...] 22.75 ml, 22.75 ml Dictated by: Trixie Nela M.D. on 05/10/2022 at 13:09 Approved by: Trixie Neal M.D. on 05/10/2022 at 13:12 Normal [facility] INFLUENZA A AND B AGon 05-05 INFLUANEGH SEE BELOW Normal [facility] Comment on above: Result Comment: Nega tive for Flu A protein angiten. Infection due to Flu A cannot be ruled out. Flu A angiten in the sample may be below the detection limit of the test. Performed By: #### M G, CMP, TSH, T7, BNP #### [facility] [address] [place] [address] Dr. Glenys Holly [facility] SEE BELOW Normal [facility] Comment on above: Result Comment: Nega tive for Flu B protein antigen. Infection due to Flu B cannot be ruled out. Flu B antigen in the sample may be below the detection limit of the test. Performed By: #### M G, CMP, TSH, T7, BNP #### [facility] [address] [place] [address] Dr. Glenys Holly INFLUENZA A AG Negative Normal NEGATIVE SEE COMMENT [facility] Comment on above: Performed By: #### M G, CMP, TSH, T7, BNP #### [facility] [address] [place] [address] Dr. Glenys Holly INFLUENZA B AG Negative Normal NEGATIVE SEE COMMENT [facility] Comment on above: Performed By: #### M G, CMP, TSH, T7, BNP #### [facility] [address] [place] [address] Dr. Glenys Holly INTERNAL CONTROLS Within Normal Limits Normal Wi thin Normal Limits [facility] Comment on above: Performed By: #### M G, CMP, TSH, T7, BNP #### [facility] [address] [place] [address] Dr. Glenys Holly LACTATE/LACTIC ACIDon 2021 Lactate [Moles/Vol] 5.2 mmol/L Critically high 0.4-1.9 [facility] Comment on above: Performed By: #### M G, CMP, TSH, T7, BNP #### [facility] [address] [place] [address] Dr. Glenys Holly Lactate [Moles/Vol] 4.8 mmol/L Critically high 0.4-1.9 [facility] Comment on above: Performed By: #### M G, CMP, TSH, T7, BNP #### [facility] [address] [place] [address] Dr. Glenys Holly LIPASEon 05-05-2022 Lipase [Catalytic activity/Vol] 64.0 U/L Critically low 73.0-393.[address] [facility] Comment on above: Performed By: #### M G, CMP, TSH, T7, BNP #### [facility] [address] [place] [address] Dr. Glenys Holly PROF CHEM 8 (BAS METB)on Anion gap [Moles/Vol] 12.6 mmol/L Normal [facility] Comment on above: Performed By: #### M G, CMP, TSH, T7, BNP #### [facility] [address] [place] [address] Dr. Glenys Holly Calcium [Mass/Vol] 9.6 mg/dL Normal 8.5-10.1 [facility] Comment on above: Performed By: #### M G, CMP, TSH, T7, BNP #### [facility] [address] [place] [address] Dr. Glenys Holly Chloride [Moles/Vol] 102 mmol/L Normal 98-107 [facility] Comment on above: Performed By: #### M G, CMP, TSH, T7, BNP #### [facility] [address] [place] [address] Dr. Glenys Holly CO2 [Moles/Vol] 26.3 mmol/L Normal 21.0-32.0 [facility] Comment on above: Performed By: #### M G, CMP, TSH, T7, BNP #### [facility] [address] [place] [address] Dr. Glenys Holly Creatinine [Mass/Vol] 1.00 mg/dL Normal 0.55-1.02 [facility] Comment on above: Performed By: #### M G, CMP, TSH, T7, BNP #### [facility] [address] [address] [address] Glenys Holly EGFR-AF [place]IZ[place] >60 Normal >=60 [facility] Comment on above: Performed By: #### M G, CMP, TSH, T7, BNP #### [facility] [address] [place] [address] Dr. Glenys Holly EGFR-NON AF [place]IZEN [place] 54 mL/min/1.73m2 Critically low >=60 [facility] Comment on above: Performed By: #### M G, CMP, TSH, T7, BNP #### [facility] [address] [place] [address] Dr. Glenys Holly Glucose [Mass/Vol] 128 mg/dL Critically high 74-106 T [facility] Comment on above: Performed By: #### M G, CMP, TSH, T7, BNP #### [facility] [address] [place] [address] Dr. Glenys Holly Potassium [Moles/Vol] 2.9 mmol/L Critically low 3.5-5.[address] [facility] Comment on above: Performed By: #### M G, CMP, TSH, T7, BNP #### [facility] [address] [place] [address] Dr. Glenys Holly Sodium [Moles/Vol] 138 mmol/L Normal 136-[address] [facility] Comment on above: Performed By: #### M G, CMP, TSH, T7, BNP #### [facility] [address] [place] [address] Dr. Glenys Holly Urea nitrogen [Mass/Vol] 20.0 mg/dL Critically high 7.0-18.[address] [facility] Comment on above: Performed By: #### M G, CMP, TSH, T7, BNP #### [facility] [address] [place] [address] Dr. Glenys Holly Urea nitrogen/Creatinine [Mass ratio] 20.0 mg/mg Normal [facility] Comment on above: Performed By: #### M G, CMP, TSH, T7, BNP #### [facility] [address] [place] [address] Dr. Glenys Holly T4on 05-05-2022 T4 [Mass/Vol] 7.40 ug/dL Normal 4.80-13.[address] [facility] Comment on above: Performed By: #### M G, CMP, TSH, T7, BNP #### [facility] [address] [place] [address] Dr. Glenys Holly TSHon 05-05-2022 TSH 0.198 uIU/mL Critically low 0.358-3.[address] [facility] Comment on above: Performed By: #### M G, CMP, TSH, T7, BNP #### [facility] [address] [place] [address] Dr. Glenys Holly UA RANDOM W/MICROSCOPICon BACTERIA NONE SEEN Normal NONE SEEN [facility] Comment on above: Performed By: #### M G, CMP, TSH, T7, BNP #### [facility] [address] [place] [address] Dr. Glenys Holly Bilirubin Ql (U) Negative Normal NEGATIVE [facility] Comment on above: Performed By: #### M G, CMP, TSH, T7, BNP #### [facility] [address] [place] [address] Dr. Glenys Holly CAST NONE SEEN Normal NONE SEEN [facility] Comment on above: Performed By: #### M G, CMP, TSH, T7, BNP #### [facility] [address] [place] [address] Dr. Glenys Holly Clarity (U) SL CLOUDY Abnormal CLEAR [facility] Comment on above: Performed By: #### M G, CMP, TSH, T7, BNP #### [facility] [address] [place] [address] Dr. Glenys Holly Color (U) LT. YELLOW Normal YELLOW [facility] Comment on above: Performed By: #### M G, CMP, TSH, T7, BNP #### [facility] [address] [place] [address] Dr. Glenys Holly Crystals LM Nom (Urine sed) NONE SEEN Normal NONE SEEN [facility] Comment on above: Performed By: #### M G, CMP, TSH, T7, BNP #### [facility] [address] [place] [address] Dr. Glenys Holly Epithelial cells LM Ql (Urine sed) FEW Abnormal NONE SEEN /RARE [facility] Comment on above: Performed By: #### M G, CMP, TSH, T7, BNP #### [facility] [address] [place] [address] Dr. Glenys Holly Glucose Ql (U) Negative Normal NEGATIVE [facility] Comment on above: Performed By: #### M G, CMP, TSH, T7, BNP #### [facility] [address] [address] [address] Glenys Holly Hemoglobin Ql (U) MODERATE Abnormal NEGATIVE [facility] Comment on above: Performed By: #### M G, CMP, TSH, T7, BNP #### [facility] [address] [address] [address] Glenys Holly Ketones Ql (U) Negative Normal NEGATIVE [facility] Comment on above: Performed By: #### M G, CMP, TSH, T7, BNP #### [facility] [address] [address] [address] Glenys Holly LEUKOCYTES Negative Normal NEGATIVE [facility] Comment on above: Performed By: #### M G, CMP, TSH, T7, BNP #### [facility] [address] [place] [address] Dr. Glenys Holly MUCOUS NONE SEEN Normal NONE SEEN [facility] Comment on above: Performed By: #### M G, CMP, TSH, T7, BNP #### [facility] [address] [place] [address] Dr. Glenys Holly Nitrite Ql (U) Negative Normal NEGATIVE [facility] Comment on above: Performed By: #### M G, CMP, TSH, T7, BNP #### [facility] [address] [place] [address] Dr. Glenys Holly pH (U) 6.0 [pH] Normal 5-9 [facility] Comment on above: Performed By: #### M G, CMP, TSH, T7, BNP #### [facility] [address] [place] [address] Dr. Glenys Holly RBC 2-5 Abnormal 0-2 [facility] Comment on above: Performed By: #### M G, CMP, TSH, T7, BNP #### [facility] [address] [place] [address] Dr. Glenys Holly SPEC GRAVITY 1.010 Normal 1.005-<=1.[address] [facility] Comment on above: Performed By: #### M G, CMP, TSH, T7, BNP #### [facility] [address] [place], [place] [address] Dr. Glenys Holly UA PROTEIN TRACE Normal NEGATIVE/ TRACE [facility] Comment on above: Performed By: #### M G, CMP, TSH, T7, BNP #### [facility] [address] [place], [place] [address] Dr. Glenys Holly Urobilinogen Qn (U) 0.2 {Phoebe'U}/dL Normal 0.2 - 1. [address] [facility] Comment on above: Performed By: #### M G, CMP, TSH, T7, BNP #### [facility] [address] [place], [place] [address] Dr. Glenys Holly WBC NONE SEEN Normal NONE SEEN [facility] Comment on above: Performed By: #### M G, CMP, TSH, T7, BNP #### [facility] [address] [place], [place] [address] Dr. Glenys Holly XR CHEST 1 Von [...] SUPA LOZANO Date: 2022-05-05 07:41 Normal [facility] CULTURE URINEon 03-30-2022 CULTURE URINE Culture Observations : GREATER THAN 4 ORGANISMS PRESENT. PLEASE RESUBMIT CLEAN CATCH MID-STREAM URINE IF CLINICALLY INDICATED. Normal [facility] Comment on above: Performed By: #### U RCX ####[facility] [address] [place], [place] [address]BrDr. Glenys Holly CBC W MANUAL DIFFon 03-29-20 22 ATYPICAL LYMPH # Normal [facility] Comment on above: Performed By: #### M G, CMP, TSH, T7, BNP #### [facility] [address] [place] [address] [address] Glenys Holly ATYPICAL LYMPH % Normal [facility] Comment on above: Performed By: #### M G, CMP, TSH, T7, BNP #### [facility] [address] [place] [address] Dr. Glenys Holly BAND # Normal 0.0-0.[address] [facility] Comment on above: Performed By: #### M G, CMP, TSH, T7, BNP #### [facility] [address] [place] [address] Dr. Glenys Holly BAND % Normal 0-[address] [facility] Comment on above: Performed By: #### M G, CMP, TSH, T7, BNP #### [facility] [address] [place] [address] Dr. Glenys Holly BASOM # 0.20 103/ul Critically high 0.00-0.[address] [facility] Comment on above: Performed By: #### M G, CMP, TSH, T7, BNP #### [facility] [address] [place] [address] Dr. Glenys Holly BASOM % 1.0 % Normal 0.2-2.[address] [facility] Comment on above: Performed By: #### M G, CMP, TSH, T7, BNP #### [facility] [address] [place] [address] Dr. Glenys Holly BLAST # Normal [facility] Comment on above: Performed By: #### M G, CMP, TSH, T7, BNP #### [facility] [address] [place] [address] Dr. Glenys Holly BLAST % Normal [facility] Comment on above: Performed By: #### M G, CMP, TSH, T7, BNP #### [facility] [address] [place] [address] Dr. Glenys Holly CORRECTED WBC Normal 4.0-11.[address] [facility] Comment on above: Performed By: #### M G, CMP, TSH, T7, BNP #### [facility] [address] [place] [address] Dr. Glenys Holly EOS # 0.00 103/ul Normal 0.00-0.[address] [facility] Comment on above: Performed By: #### M G, CMP, TSH, T7, BNP #### [facility] [address] [place] [address] Dr. Glenys Holly EOS% 0.0 % Critically low 0.9-7.[address] [facility] Comment on above: Performed By: #### M G, CMP, TSH, T7, BNP #### [facility] [address] [place] [address] Dr. Glenys Holly HCT 45.0 % Normal 36.0-48.[address] [facility] Comment on above: Performed By: #### M G, CMP, TSH, T7, BNP #### [facility] [address] [place] [address] Dr. Glenys Holly HGB 15.2 g/dl Normal 12.0-16.[address] [facility] Comment on above: Performed By: #### M G, CMP, TSH, T7, BNP #### [facility] [address] [place] [address] Dr. Glenys Holly LYMPHM # 2.80 103/ul Normal 1.20-3.[address] [facility] Comment on above: Performed By: #### M G, CMP, TSH, T7, BNP #### [facility] [address] [place] [address] Dr. Glenys Holly LYMPHM% 14.0 % Critically low 20.5-60.[address] [facility] Comment on above: Performed By: #### M G, CMP, TSH, T7, BNP #### [facility] [address] [place] [address] Dr. Glenys Holly MCH 30.6 pg Normal 26.7-34.[address] [facility] Comment on above: Performed By: #### M G, CMP, TSH, T7, BNP #### [facility] [address] [place] [address] Dr. Glenys Holly MCHC 33.8 g/dl Normal 29.9-35.[address] [facility] Comment on above: Performed By: #### M G, CMP, TSH, T7, BNP #### [facility] [address] [address] [address] Glenys Holly MCV 90.7 fL Normal 81.0-99.[address] [facility] Comment on above: Performed By: #### M G, CMP, TSH, T7, BNP #### [facility] [address] [address] [address] Glenys Holly METAMYELOCYTE # Normal [facility] Comment on above: Performed By: #### M G, CMP, TSH, T7, BNP #### [facility] [address] [place] [address] Dr. Glenys Holly METAMYELOCYTE % Normal [facility] Comment on above: Performed By: #### M G, CMP, TSH, T7, BNP #### [facility] [address] [place] [address] Dr. Glenys Holly MONOM# 2.40 103/ul Critically high 0.30-0.[address] [facility] Comment on above: Performed By: #### M G, CMP, TSH, T7, BNP #### [facility] [address] [place] [address] Dr. Glenys Holly MONOM% 12.0 % Normal 1.7-12.[address] [facility] Comment on above: Performed By: #### M G, CMP, TSH, T7, BNP #### [facility] [address] [place] [address] Dr. Glenys Holly MPV 11.5 fL Normal 9.5-13.[address] [facility] Comment on above: Performed By: #### M G, CMP, TSH, T7, BNP #### [facility] [address] [place] [address] Dr. Glenys Holly MYELOCYTE # Normal [facility] Comment on above: Performed By: #### M G, CMP, TSH, T7, BNP #### [facility] [address] [place] [address] Dr. Glenys Holly MYELOCYTE % Normal [facility] Comment on above: Performed By: #### M G, CMP, TSH, T7, BNP #### [facility] [address] [place] [address] Dr. Glenys Holly NRBC Normal [facility] Comment on above: Performed By: #### M G, CMP, TSH, T7, BNP #### [facility] [address] [place] [address] Dr. Glenys Holly PLT 323 103/ul Normal 150-[address] [facility] Comment on above: Performed By: #### M G, CMP, TSH, T7, BNP #### [facility] [address] [place] [address] Dr. Glenys Holly RBC 4.96 106/ul Normal 4.20-5.[address] [facility] Comment on above: Performed By: #### M G, CMP, TSH, T7, BNP #### [facility] [address] [place] [address] Dr. Glenys Holly RDW 14.4 % Normal 11.0-15.[address] [facility] Comment on above: Performed By: #### M G, CMP, TSH, T7, BNP #### [facility] [address] [place] [address] Dr. Glenys Holly SEG # 14.60 103/ul Critically high 1.40-6.[address] [facility] Comment on above: Performed By: #### M G, CMP, TSH, T7, BNP #### [facility] [address] [place] [address] Dr. Glenys Holly SEG % 73.0 % Normal 43.0-75.[address] [facility] Comment on above: Performed By: #### M G, CMP, TSH, T7, BNP #### [facility] [address] [place] [address] Dr. Glenys Holly WBC 20.0 103/ul Critically high 4.0-11.[address] [facility] Comment on above: Performed By: #### M G, CMP, TSH, T7, BNP #### [facility] [address] [place] [address] ABD/PELV W CONon [...] RAMIRO SPENCER Date: 2022-03-29 11:27 Normal [facility] ER URINE PROFILEon 2 Bilirubin Ql (U) Negative Normal NEGATIVE [facility] Comment on above: Performed By: #### M G, CMP, TSH, T7, BNP #### [facility] [address] [address] [address] Glenys Holly Clarity (U) CLEAR Normal CLEAR [facility] Comment on above: Performed By: #### M G, CMP, TSH, T7, BNP #### [facility] [address] [address] [address] Glenys Holly Color (U) LT. YELLOW Normal YELLOW [facility] Comment on above: Performed By: #### M G, CMP, TSH, T7, BNP #### [facility] [address] [address] [address] Glenys WILLIAMSON A micrscopic examina tion will be performed if indicated. Normal [facility] Comment on above: Performed By: #### M G, CMP, TSH, T7, BNP #### [facility] [address] [place] [address] Dr. Glenys Holly Glucose Ql (U) Negative Normal NEGATIVE [facility] Comment on above: Performed By: #### M G, CMP, TSH, T7, BNP #### [facility] [address] [address] [address] Glenys Holly Hemoglobin Ql (U) MODERATE Abnormal NEGATIVE [facility] Comment on above: Performed By: #### M G, CMP, TSH, T7, BNP #### [facility] [address] [place] [address] Dr. Glenys Holly Ketones Ql (U) 15 mg/dl Abnormal NEGATIVE [facility] Comment on above: Performed By: #### M G, CMP, TSH, T7, BNP #### [facility] [address] [place] [address] Dr. Glenys Holly LEUKOCYTES LARGE Abnormal NEGATIVE [facility] Comment on above: Performed By: #### M G, CMP, TSH, T7, BNP #### [facility] [address] [place] [address] Dr. Glenys Holly Nitrite Ql (U) Negative Normal NEGATIVE [facility] Comment on above: Performed By: #### M G, CMP, TSH, T7, BNP #### [facility] [address] [place] [address] Dr. Glenys Holly pH (U) 6.5 [pH] Normal 5-9 [facility] Comment on above: Performed By: #### M G, CMP, TSH, T7, BNP #### [facility] [address] [place] [address] Dr. Glenys Holly SPEC GRAVITY 1.015 Normal 1.005-<=1.[address] [facility] Comment on above: Performed By: #### M G, CMP, TSH, T7, BNP #### [facility] [address] [place] [address] Dr. Glenys Holly UA PROTEIN TRACE Normal NEGATIVE/ TRACE [facility] Comment on above: Performed By: #### M G, CMP, TSH, T7, BNP #### [facility] [address] [place] [address] Dr. Glenys Holly UR MICRO IND INDICATED Normal [facility] Comment on above: Performed By: #### M G, CMP, TSH, T7, BNP #### [facility] [address] [address] [address] Glenys Holly Urobilinogen Qn (U) 0.2 {Phoebe'U}/dL Normal 0.2 - 1. 0 [facility] Comment on above: Performed By: #### M G, CMP, TSH, T7, BNP #### [facility] [address] [place] [address] Dr. Glenys Holly LIPASEon 03-29-2022 Lipase [Catalytic activity/Vol] 62.0 U/L Critically low 73.0-393.[address] [facility] Comment on above: Performed By: #### M G, CMP, TSH, T7, BNP #### [facility] [address] [place] [address] Dr. Glenys Holly PROF 14(COMP METB)on 022 Albumin [Mass/Vol] 3.7 g/dL Normal 3.4-5.[address] [facility] Comment on above: Performed By: #### M G, CMP, TSH, T7, BNP #### [facility] [address] [place] [address] Dr. Glenys Holly Albumin/Globulin [Mass ratio] 1.2 {ratio} Normal [facility] Comment on above: Performed By: #### M G, CMP, TSH, T7, BNP #### [facility] [address] [address] [address] Glenys Holly ALP [Catalytic activity/Vol] 106 U/L Normal 46-116 [facility] Comment on above: Performed By: #### M G, CMP, TSH, T7, BNP #### [facility] [address] [address] [address] Glenys Holly ALT [Catalytic activity/Vol] 17 U/L Normal 14-59 [facility] Comment on above: Performed By: #### M G, CMP, TSH, T7, BNP #### [facility] [address] [place] [address] Dr. Glenys Holly Anion gap [Moles/Vol] 11.8 mmol/L Normal [facility] Comment on above: Performed By: #### M G, CMP, TSH, T7, BNP #### [facility] [address] [place] [address] Dr. Glenys Holly AST [Catalytic activity/Vol] 19 U/L Normal 15-[address] [facility] Comment on above: Performed By: #### M G, CMP, TSH, T7, BNP #### [facility] [address] [place] [address] Dr. Glenys Holly Bilirubin [Mass/Vol] 0.8 mg/dL Normal 0.2-1.[address] [facility] Comment on above: Performed By: #### M G, CMP, TSH, T7, BNP #### [facility] [address] [place] [address] Dr. Glenys Holly Calcium [Mass/Vol] 9.8 mg/dL Normal 8.5-10.1 [facility] Comment on above: Performed By: #### M G, CMP, TSH, T7, BNP #### [facility] [address] [place] [address] Dr. Glenys Holly Chloride [Moles/Vol] 101 mmol/L Normal 98-107 [facility] Comment on above: Performed By: #### M G, CMP, TSH, T7, BNP #### [facility] [address] [place] [address] Dr. Glenys Holly CO2 [Moles/Vol] 26.2 mmol/L Normal 21.0-32.0 [facility] Comment on above: Performed By: #### M G, CMP, TSH, T7, BNP #### [facility] [address] [place] [address] Dr. Glenys Holly Creatinine [Mass/Vol] 0.76 mg/dL Normal 0.55-1.02 [facility] Comment on above: Performed By: #### M G, CMP, TSH, T7, BNP #### [facility] [address] [address] [address] Glenys Holly EGFR-AF CITIZEN [place] >60 Normal >=[address] [facility] Comment on above: Performed By: #### M G, CMP, TSH, T7, BNP #### [facility] [address] [address] [address] Glenys Holly EGFR-NON AF CITIZEN OF [place] >60 Normal >=[address] [facility] Comment on above: Performed By: #### M G, CMP, TSH, T7, BNP #### [facility] [address] [address] [address] Glenys Holly Globulin (S) [Mass/Vol] 3.2 g/dL Normal [facility] Comment on above: Performed By: #### M G, CMP, TSH, T7, BNP #### [facility] [address] [place] [address] Dr. Glenys Holly Glucose [Mass/Vol] 103 mg/dL Normal 74-[address] [facility] Comment on above: Performed By: #### M G, CMP, TSH, T7, BNP #### [facility] [address] [address] [address] Glenys Holly Potassium [Moles/Vol] 3.0 mmol/L Critically low 3.5-5.[address] [facility] Comment on above: Performed By: #### M G, CMP, TSH, T7, BNP #### [facility] [address] [address] [address] Glenys Holly Protein [Mass/Vol] 6.9 g/dL Normal 6.4-8.2 [facility] Comment on above: Performed By: #### M G, CMP, TSH, T7, BNP #### [facility] [address] [place] [address] Dr. Glenys Holly Sodium [Moles/Vol] 136 mmol/L Normal 136-[address] [facility] Comment on above: Performed By: #### M G, CMP, TSH, T7, BNP #### [facility] [address] [place] [address] Dr. Glenys Holly Urea nitrogen [Mass/Vol] 16.0 mg/dL Normal 7.0-18.[address] [facility] Comment on above: Performed By: #### M G, CMP, TSH, T7, BNP #### [facility] [address] [address] [address] Glenys Holly Urea nitrogen/Creatinine [Mass ratio] 21.1 mg/mg Normal [facility] Comment on above: Performed By: #### M G, CMP, TSH, T7, BNP #### [facility] [address] [place] [address] Dr. Glenys Holly TROPONIN, HIGH SENSITIVITYon 03-29-2022 HSTROP 30.7 pg/mL Normal 4.0-51.3 [facility] Comment on above: Result Comment: CUT- OFF POINTS HAVE BEEN ESTABLISHED BASED ON THE FOURTH UNIVERSAL DEFINITIONS OF MYOCARDIAL INFARCTION. THE UPPER REFERENCE LIMIT (URL) OF TROPONIN, DEFINED THE 99TH PERCENTILE OF cTnI DISTRIBUTION IN A REFERENCE POPULATION, HAS BEEN CONFIRMED THE DECISION THRESHOLD FOR TN DIAGNOSIS. Performed By: #### M G, CMP, TSH, T7, BNP #### [facility] [address] [place] [address] Dr. Glenys Holly URINE MICROSCOPIC ONLYon BACTERIA MODERATE Abnormal NONE SEEN [facility] Comment on above: Performed By: #### M G, CMP, TSH, T7, BNP #### [facility] [address] [place] [address] Dr. Glenys Holly Bacteria identified Cx Nom (U) INDICATED Normal [facility] Comment on above: Performed By: #### M G, CMP, TSH, T7, BNP #### [facility] [address] [place] [address] Dr. Glenys Holly CA OX CRYSTALS MODERATE Normal [facility] Comment on above: Performed By: #### M G, CMP, TSH, T7, BNP #### [facility] [address] [place] [address] Dr. Glenys Holly CAST NONE SEEN Normal NONE SEEN [facility] Comment on above: Performed By: #### M G, CMP, TSH, T7, BNP #### [facility] [address] [address] [address] Glenys Holly Crystals LM Nom (Urine sed) SEEN Abnormal NONE SEEN [facility] Comment on above: Performed By: #### M G, CMP, TSH, T7, BNP #### [facility] [address] [address] [address] Glenys Holly Epithelial cells LM Ql (Urine sed) FEW Abnormal NONE SEEN /RARE [facility] Comment on above: Performed By: #### M G, CMP, TSH, T7, BNP #### [facility] [address] [address] [address] Glenys Holly MUCOUS NONE SEEN Normal NONE SEEN [facility] Comment on above: Performed By: #### M G, CMP, TSH, T7, BNP #### [facility] [address] [address] [address] Glenys Holly RBC 5-10 Abnormal 0-2 [facility] Comment on above: Performed By: #### M G, CMP, TSH, T7, BNP #### [facility] [address] [address] [address] Glenys Holly WBC 20-50 Abnormal NONE SEEN [facility] Comment on above: Performed By: #### M G, CMP, TSH, T7, BNP #### [facility] [address] [address] [address] Glenys Holly XR ABD FLAT UP_PA [...] RAMIRO SPENCER Date: 2022-03-29 09:[address] [facility] [address] HEAD WO CONon 07-19-2022 CT HEAD WO CON EXAMINATION: CT HEAD [...] RAMIRO SPENCER Date: 2021-12-27 12:48 Normal [facility] Discharge Summaryon 08-18-19 18 Discharge Summary MR#: [id number] [facility] Name: Judith Khan Admitted: 08/11/2017 Discharged: [...] intraperitoneal bleeding. [facility].Upon arrival to the [facility], no other injuries were noted. The patientwas [...] 4-6 hours as needed for pain and [id number] mg b.i.d. for opioid related constipation.Electronically Signed by:Supa May M.D. 08/29/2017 12:01 P Supa May M.D. I personally saw this patient on the day of the encounter, performed thekey portion(s) of the service and participated in the management andconfirm the resident's documentation. Please note there may be anadditional personal documentation from me. Date Dict: 08/16/2017/10:11 A/Josh Palmer, MDDate Trans: 08/17/2017 06:00 [id number] Normal [facility] BASIC METABOLIC PANELon 03-0 Calcium 8.8 mg/dL Normal 8.6-10.3 [facility] Comment on above: Order Comment: No: D o not add to previous draw Performed By: #### 0 0121, [id number] ####[facility] [facility] [place] [address], [facility] Chloride 97 mmol/L Low 98-107 [facility] Comment on above: Order Comment: No: D o not add to previous draw Performed By: #### 0 0121, [id number] ####[facility] [facility] [place] [address], [facility] CO2 33 mmol/L High 21-31 [facility] Comment on above: Order Comment: No: D o not add to previous draw Performed By: #### 0 0121, 21988 ####[facility] [facility] [place] [address], [facility] Creatinine 0.75 mg/dL Normal 0.60-1.20 [facility] Comment on above: Order Comment: No: D o not add to previous draw Performed By: #### 0 0121, 58706 ####[facility] [facility] [place] [address], [facility] eGFR (black) mL/min/{1.73_m2} Normal >60 [facility] Comment on above: Order Comment: No: D o not add to previous draw Result Comment: Calc ulation may not be valid for patients over 70 years Performed By: #### 0 0121, 32607 ####[facility] eGFR (non-black) mL/min/{1.73_m2} Normal >60 Th e [facility] Comment on above: Order Comment: No: D o not add to previous draw Result Comment: Calc ulation may not be valid for patients over 70 years Performed By: #### 0 0121, 25335 ####[facility] Glucose mass conc 91 mg/dL Normal 70-100 [facility] Comment on above: Order Comment: No: D o not add to previous draw Performed By: #### 0 0121, 01460 ####[facility] Potassium molar conc 2.8 mmol/L Low 3.5-5.1 [facility] Comment on above: Order Comment: No: D o not add to previous draw Performed By: #### 0 0121, [id number] ####[facility] [facility] Sodium 137 mmol/L Normal 136-145 [facility] Comment on above: Order Comment: No: D o not add to previous draw Performed By: #### 0 0121, 96176 ####[facility] Urea nitrogen 13 mg/dL Normal 7-25 [facility] Comment on above: Order Comment: No: D o not add to previous draw Performed By: #### 0 0121, 95534 ####[facility] [facility].[address] CBC COMPLETE BLOOD COUNTon 0 - Erythrocyte distribution width Auto Ratio (RBC) 14.6 % Normal 11.5-15.0 [facility] Comment on above: Order Comment: No: D o not add to previous draw Performed By: #### 5 610, 20917 ####[facility] Erythrocytes (RBC) 4.05 10*6/uL Normal 3.80-5.00 [facility] Comment on above: Order Comment: No: D o not add to previous draw Performed By: #### 5 610, 95000 ####[facility] Erythrocytes (RBC) 0 % Normal 0-0 [facility] Comment on above: Order Comment: No: D o not add to previous draw Performed By: #### 5 610, 27356 ####[facility] Hematocrit (HCT) 36.8 % Normal 36.0-45.0 [facility] Comment on above: Order Comment: No: D o not add to previous draw Performed By: #### 5 610, 21323 ####[facility] [facility] Hemoglobin mass conc (Bld) 12.3 g/dL Normal 12.0-15.0 [facility] Comment on above: Order Comment: No: D o not add to previous draw Performed By: #### 5 6100, 63519 ####[place] [id number] [facility].[address] MCH 30.4 pg Normal 27.0-33.0 [facility] Comment on above: Order Comment: No: D o not add to previous draw Performed By: #### 5 610, 13157 ####[facility] [facility] MCHC mass conc (RBC) 33.4 g/dL Normal 32.0-35.0 [facility] Comment on above: Order Comment: No: D o not add to previous draw Performed By: #### 5 6101, 90132 ####[address] MCV 90.9 fL Normal 82.0-98.0 [facility] Comment on above: Order Comment: No: D o not add to previous draw Performed By: #### 5 6101, 58668 ####[address] PLAT CNT 196 10*3/uL Normal 150-400 [facility] Comment on above: Order Comment: No: D o not add to previous draw Performed By: #### 5 6101, 96728 ####[address] WBC (Leukocytes) 11.0 10*3/uL High 4.0-10.6 [facility] Comment on above: Order Comment: No: D o not add to previous draw Performed By: #### 5 6101, 36334 ####[address] PORTABLE CHEST 1 VIEWon 03- PORTABLE CHEST 1 VIEW [facility] [id number] [place] [id number] Patient Name: JUDITH KHAN : 1945Sex: FAge: Race: WhiteMRN: [id number]. Location: [id number] Status: IVisit #: [id number] Date: 08/15/2017 7:05:00 AMCompleted Date: 08/15/2017 07:54 AMRequesting Provider: JOSH PALMER Attending Provider: ALEXANDER OLSON Report Copy To: Signs & Symptoms: O2 DesaturationHistory: Patient history not availableComments: R/O EffusionExam: PORTABLE CHEST 1 VIEWAccession #: [id number] POR TABLE CHEST 1 VIEW 08/15/2017 7:54 [...] findings. Electronically signed by:Nina Beaver. Transcribed by: [email or web address], User Resident: JAZMIN MARElectronically Signed by: NINA BEAVER @ 08/15/2017 10:25 AMI personally read this/these film(s) with this resident Normal [facility] Comment on above: Order Comment: R/O E ffusion BASIC METABOLIC PANELon 03-0 Calcium 8.6 mg/dL Normal 8.6-10.3 [facility] Comment on above: Order Comment: No: D o not add to previous draw Performed By: #### 0 0121, 98080 ####[facility] [place] [address], [facility] Chloride 103 mmol/L Normal 98-107 [facility] Comment on above: Order Comment: No: D o not add to previous draw Performed By: #### 0 0121, 67911 ####[facility] [place] [address], [facility] CO2 30 mmol/L Normal 21-31 [facility] Comment on above: Order Comment: No: D o not add to previous draw Performed By: #### 0 0121, 04582 ####[facility] [facility] [place] [address], [facility] Creatinine 0.60 mg/dL Normal 0.60-1.20 [facility] Comment on above: Order Comment: No: D o not add to previous draw Performed By: #### 0 0121, 39925 ####[facility] [facility] [place] [address], [facility] eGFR (black) mL/min/{1.73_m2} Normal >60 [facility] Comment on above: Order Comment: No: D o not add to previous draw Result Comment: Calc ulation may not be valid for patients over 70 years Performed By: #### 0 0121, 94479 ####[facility] [facility] eGFR (non-black) mL/min/{1.73_m2} Normal >60 [facility] Comment on above: Order Comment: No: D o not add to previous draw Result Comment: Calc ulation may not be valid for patients over 70 years Performed By: #### 0 0121, 60198 ####[facility] [place] [address], [facility] Glucose mass conc 81 mg/dL Normal 70-100 [facility] Comment on above: Order Comment: No: D o not add to previous draw Performed By: #### 0 0121, 92968 ####[facility] [place] [address], [facility] Potassium molar conc 3.0 mmol/L Low 3.5-5.1 [facility] Comment on above: Order Comment: No: D o not add to previous draw Performed By: #### 0 0121, 85244 ####[facility] [facility].[address] Sodium 138 mmol/L Normal 136-145 [facility] Comment on above: Order Comment: No: D o not add to previous draw Performed By: #### 0 0121, 87864 ####[facility] [facility].[address] Urea nitrogen 12 mg/dL Normal 7-25 [facility] Comment on above: Order Comment: No: D o not add to previous draw Performed By: #### 0 0121, 51682 ####[facility] CBC COMPLETE BLOOD COUNTon 0 08-14-2017 Erythrocyte distribution width Auto Ratio (RBC) 14.9 % Normal 11.5-15.0 [facility] Comment on above: Order Comment: No: D o not add to previous draw Performed By: #### 0 0121, 82918 ####[facility] [facility].[address] Erythrocytes (RBC) 3.80 10*6/uL Normal 3.80-5.00 [facility] Comment on above: Order Comment: No: D o not add to previous draw Performed By: #### 0 0121, 55823 ####[facility] [facility].[address] Erythrocytes (RBC) 0 % Normal 0-0 [facility] Comment on above: Order Comment: No: D o not add to previous draw Performed By: #### 0 0121, 97318 ####[facility] [facility].[address] Hematocrit (HCT) 34.3 % Low 36.0-45.0 [facility] Comment on above: Order Comment: No: D o not add to previous draw Performed By: #### 0 0121, 93761 ####[facility] Hemoglobin mass conc (Bld) 11.7 g/dL Low 12.0-15.0 [facility] Comment on above: Order Comment: No: D o not add to previous draw Performed By: #### 0 0121, 94555 ####[facility] MCH 30.8 pg Normal 27.0-33.0 [facility] Comment on above: Order Comment: No: D o not add to previous draw Performed By: #### 0 0121, 70544 ####[facility] MCHC mass conc (RBC) 34.1 g/dL Normal 32.0-35.0 [facility] Comment on above: Order Comment: No: D o not add to previous draw Performed By: #### 0 0121, 64460 ####[facility] MCV 90.3 fL Normal 82.0-98.0 [facility] Comment on above: Order Comment: No: D o not add to previous draw Performed By: #### 0 0121, 65214 ####[facility] PLAT CNT 134 10*3/uL Low 150-400 [facility] Comment on above: Order Comment: No: D o not add to previous draw Performed By: #### 0 0121, 29683 ####[facility] WBC (Leukocytes) 11.5 10*3/uL High 4.0-10.6 [facility] Comment on above: Order Comment: No: D o not add to previous draw Performed By: #### 0 0121, 88944 ####[facility] [facility] [place] [address], [facility] MAGNESIUM BLOODon 08-14-2017 Magnesium 1.9 mg/dL Normal 1.9-2.7 [facility] Comment on above: Order Comment: No: D o not add to previous draw Performed By: #### 0 0121, 93598 ####[facility] [facility] [place] [address], [facility] PHOSPHORUS BLOODon 8 Phosphate 2.5 mg/dL Normal 2.5-5.0 [facility] Comment on above: Order Comment: No: D o not add to previous draw Performed By: #### 0 0121, 38281 ####[facility] [facility] [place] [address], [facility] PORTABLE CHEST 1 VIEWon PORTABLE CHEST 1 VIEW [facility] Wtboamzau[address] [place], [place] [id number] Patient Name: JUDITH KHAN : 1945Sex: FAge: Race: WhiteMRN: [id number]. Location: [id number] Status: IVisit #: [id number] Date: 08/14/2017 8:00:00 AMCompleted Date: 08/14/2017 08:34 AMRequesting Provider: JOSH PALMER Attending Provider: ALEXANDER OLSON Report Copy To: Signs & Symptoms: O2 DesaturationHistory: Patient history not availableComments: R/O AtelectasisExam: PORTABLE CHEST 1 VIEWAccession #: [id number] POR TABLE CHEST 1 VIEW 08/14/2017 8:34 [...] findings. Electronically signed by:Kristian Nascimento. Transcribed by: [email or web address], User Resident: JAZMIN MARElectronically Signed by: KRISTIAN NASCIMENTO @ 08/14/2017 09:18 PMI personally read this/these film(s) with this resident Normal [facility] Comment on above: Order Comment: R/O A telectasis BASIC METABOLIC PANELon 03-0 Calcium 8.4 mg/dL Low 8.6-10.3 [facility] Comment on above: Order Comment: No: D o not add to previous draw Performed By: #### 0 0121, 28453 ####[facility] [facility] [place] [place] [address], [facility] Chloride 109 mmol/L High 98-107 [facility] Comment on above: Order Comment: No: D o not add to previous draw Performed By: #### 0 0121, 41330 ####[facility] [facility] [place] [place] [address], [facility] CO2 30 mmol/L Normal 21-31 [facility] Comment on above: Order Comment: No: D o not add to previous draw Performed By: #### 0 0121, 92955 ####[facility] [facility] [place] [place] [address], [facility] Creatinine 0.62 mg/dL Normal 0.60-1.20 [facility] Comment on above: Order Comment: No: D o not add to previous draw Performed By: #### 0 0121, 27355 ####[facility] [place] [address], [facility] eGFR (black) mL/min/{1.73_m2} Normal >60 [facility] Comment on above: Order Comment: No: D o not add to previous draw Result Comment: Calc ulation may not be valid for patients over 70 years Performed By: #### 0 0121, 73835 ####[facility] [facility].[address] eGFR (non-black) mL/min/{1.73_m2} Normal >60 [facility] Comment on above: Order Comment: No: D o not add to previous draw Result Comment: Calc ulation may not be valid for patients over 70 years Performed By: #### 0 0121, 24107 ####[facility] [facility] [place] [place] [address], [facility] Glucose mass conc 99 mg/dL Normal 70-100 [facility] Comment on above: Order Comment: No: D o not add to previous draw Performed By: #### 0 0121, 77046 ####[facility] [facility] [place] [place] [address], [facility] Potassium molar conc 3.2 mmol/L Low 3.5-5.1 [facility] Comment on above: Order Comment: No: D o not add to previous draw Performed By: #### 0 0121, 78073 ####[facility] [id number], [facility] Sodium 143 mmol/L Normal 136-145 [facility] Comment on above: Order Comment: No: D o not add to previous draw Performed By: #### 0 0121, 16133 ####[facility] [facility].[address] Urea nitrogen 14 mg/dL Normal 7-25 [facility] Comment on above: Order Comment: No: D o not add to previous draw Performed By: #### 0 0121, 03371 ####[facility] [facility].[address] CBC COMPLETE BLOOD COUNTon 0 08-13-2017 Erythrocyte distribution width Auto Ratio (RBC) 15.9 % High 11.5-15.0 [facility] Comment on above: Order Comment: No: D o not add to previous draw Performed By: #### 0 0121, 41471 ####[facility] [facility].[address] Erythrocytes (RBC) 0 % Normal 0-0 [facility] Comment on above: Order Comment: No: D o not add to previous draw Performed By: #### 0 0121, 51974 ####[facility] [facility].[address] Erythrocytes (RBC) 3.76 10*6/uL Low 3.80-5.00 [facility] Comment on above: Order Comment: No: D o not add to previous draw Performed By: #### 0 0121, 48963 ####[facility] [facility].[address] Hematocrit (HCT) 34.3 % Low 36.0-45.0 [facility] Comment on above: Order Comment: No: D o not add to previous draw Performed By: #### 0 0121, 00389 ####[facility] Hemoglobin mass conc (Bld) 11.4 g/dL Low 12.0-15.0 [facility] Comment on above: Order Comment: No: D o not add to previous draw Performed By: #### 0 0121, 84472 ####[facility] MCH 30.3 pg Normal 27.0-33.0 [facility] Comment on above: Order Comment: No: D o not add to previous draw Performed By: #### 0 0121, 24154 ####[facility] MCHC mass conc (RBC) 33.2 g/dL Normal 32.0-35.0 [facility] Comment on above: Order Comment: No: D o not add to previous draw Performed By: #### 0 0121, 12382 ####[facility] MCV 91.2 fL Normal 82.0-98.0 [facility] Comment on above: Order Comment: No: D o not add to previous draw Performed By: #### 0 0121, 82280 ####[facility] PLAT CNT 95 10*3/uL Low 150-400 [facility] Comment on above: Order Comment: No: D o not add to previous draw Performed By: #### 0 0121, 89962 ####[facility] [facility].[address] WBC (Leukocytes) 9.1 10*3/uL Normal 4.0-10.6 [facility] Comment on above: Order Comment: No: D o not add to previous draw Performed By: #### 0 0121, 42374 ####[facility] MAGNESIUM BLOODon 08-13-2017 Magnesium 1.8 mg/dL Low 1.9-2.7 [facility] Comment on above: Order Comment: No: D o not add to previous draw Performed By: #### 0 0121, 01382 ####[facility] [place] [address], [facility] PHOSPHORUS BLOODon 8 Phosphate 1.9 mg/dL Low 2.5-5.0 [facility] Comment on above: Order Comment: No: D o not add to previous draw Performed By: #### 0 0121, 28961 ####[facility] BASIC METABOLIC PANELon Calcium 8.4 mg/dL Low 8.6-10.3 [facility] Comment on above: Order Comment: No: D o not add to previous draw Performed By: #### 0 0121, 28327 ####[facility] Chloride 113 mmol/L High 98-107 [facility] Comment on above: Order Comment: No: D o not add to previous draw Performed By: #### 0 0121, 96769 ####[facility] CO2 25 mmol/L Normal 21-31 [facility] Comment on above: Order Comment: No: D o not add to previous draw Performed By: #### 0 0121, 67121 ####[facility] Creatinine 0.75 mg/dL Normal 0.60-1.20 [facility] Comment on above: Order Comment: No: D o not add to previous draw Performed By: #### 0 0121, 29926 ####[facility] eGFR (black) mL/min/{1.73_m2} Normal >60 [facility] Comment on above: Order Comment: No: D o not add to previous draw Result Comment: Calc ulation may not be valid for patients over 70 years Performed By: #### 0 0121, 39250 ####[facility] [facility].[address] eGFR (non-black) mL/min/{1.73_m2} Normal >60 [facility] Comment on above: Order Comment: No: D o not add to previous draw Result Comment: Calc ulation may not be valid for patients over 70 years Performed By: #### 0 0121, 41597 ####[facility] [facility].[address] Glucose mass conc 116 mg/dL High 70-100 [facility] Comment on above: Order Comment: No: D o not add to previous draw Performed By: #### 0 0121, 15537 ####[place] [address] [facility].[address] Potassium molar conc 3.6 mmol/L Normal 3.5-5.1 [facility] Comment on above: Order Comment: No: D o not add to previous draw Performed By: #### 0 0121, 14761 ####[facility] [facility].[address] Sodium 144 mmol/L Normal 136-145 [facility] Comment on above: Order Comment: No: D o not add to previous draw Performed By: #### 0 0121, 26187 ####[facility] [facility] [place] [address], [facility] Urea nitrogen 16 mg/dL Normal 7-25 [facility] Comment on above: Order Comment: No: D o not add to previous draw Performed By: #### 0 0121, 94842 ####[facility] [facility].[address] CBC COMPLETE BLOOD COUNTon 0 - Erythrocyte distribution width Auto Ratio (RBC) 16.3 % High 11.5-15.0 [facility] Comment on above: Order Comment: No: D o not add to previous draw Performed By: #### 0 0121, 01307 ####[facility] Erythrocytes (RBC) 4.15 10*6/uL Normal 3.80-5.00 [facility] Comment on above: Order Comment: No: D o not add to previous draw Performed By: #### 0 0121, 68069 ####[facility] [place] [address], [facility] Erythrocytes (RBC) 0 % Normal 0-0 [facility] Comment on above: Order Comment: No: D o not add to previous draw Performed By: #### 0 0121, 03082 ####[facility] [facility].[address] Hematocrit (HCT) 37.6 % Normal 36.0-45.0 [facility] Comment on above: Order Comment: No: D o not add to previous draw Performed By: #### 0 0121, 39194 ####[facility] [facility].[address] Hemoglobin mass conc (Bld) 12.5 g/dL Normal 12.0-15.0 [facility] Comment on above: Order Comment: No: D o not add to previous draw Performed By: #### 0 0121, 49981 ####[facility] [facility].[address] MCH 30.1 pg Normal 27.0-33.0 [facility] Comment on above: Order Comment: No: D o not add to previous draw Performed By: #### 0 0121, 58882 ####[facility] [place] [address], [facility] MCHC mass conc (RBC) 33.2 g/dL Normal 32.0-35.0 [facility] Comment on above: Order Comment: No: D o not add to previous draw Performed By: #### 0 0121, 03973 ####[facility] [facility].[address] MCV 90.6 fL Normal 82.0-98.0 [facility] Comment on above: Order Comment: No: D o not add to previous draw Performed By: #### 0 0121, 07376 ####[facility] PLAT CNT 89 10*3/uL Low 150-400 [facility] Comment on above: Order Comment: No: D o not add to previous draw Performed By: #### 0 0121, 19879 ####[facility] WBC (Leukocytes) 13.5 10*3/uL High 4.0-10.6 [facility] Comment on above: Order Comment: No: D o not add to previous draw Performed By: #### 0 0121, 48747 ####[facility] HEMATOCRITon 08-12-2017 Hematocrit (HCT) 37.6 % Normal 36.0-45.0 [facility] Comment on above: Order Comment: No: D o not add to previous draw Performed By: #### 0 0121, 01349 ####[facility] [facility].[address] HEMOGLOBINon 08-12-2017 Hemoglobin mass conc (Bld) 12.6 g/dL Normal 12.0-15.0 [facility] Comment on above: Order Comment: No: D o not add to previous drawLAB DRAW NOW - PER CECY MCELROY Performed By: #### 0 0121, 64455 ####[facility] [place] [address], [facility] MAGNESIUM BLOODon 08-12-2017 Magnesium 1.9 mg/dL Normal 1.9-2.7 [facility] Comment on above: Order Comment: No: D o not add to previous draw Performed By: #### 0 0121, 35813 ####[facility] [place], [place] [address] [place] [address] PHOSPHORUS BLOODon 8 Phosphate 2.1 mg/dL Low 2.5-5.0 [facility] Comment on above: Order Comment: No: D o not add to previous draw Performed By: #### 0 0121, 57283 ####[facility] [place], [place] [address] [place] [address] PORTABLE CHEST 1 VIEWon PORTABLE CHEST 1 VIEW [facility] Xnjavafbt[address] [place], [place] [address] Patient Name: JUDITH KHAN : 1945Sex: FAge: Race: WhiteMRN: [id number]. Location: [id number] Status: IVisit #: [id number] Date: 08/12/2017 7:00:00 AMCompleted Date: 08/12/2017 09:16 AMRequesting Provider: SHANON HERNANDEZ Attending Provider: ALEXANDER OLSON Report Copy To: Signs & Symptoms: O2 DesaturationHistory: Patient history not availableComments: R/O AtelectasisExam: PORTABLE CHEST 1 VIEWAccession #: [id number] POR TABLE CHEST 1 VIEW 08/12/2017 9:16 [...] findings. Electronically signed by:Kristian Nascimento. Transcribed by: [email or web address], User Resident: ANDRZEJ TORRESElectronically Signed by: KRISTIAN NASCIMENTO @ 08/12/2017 12:27 PMI personally read this/these film(s) with this resident Normal [facility] Comment on above: Order Comment: R/O A telectasis ALCOHOLon 08-11-2017 Ethanol NONE DETECTED Normal [facility] Comment on above: Result Comment: Divi de by 1000 to convert mg/dL to percent. Example: 100mg/dL = 0.1%. Performed By: #### 1 53, ####[facility] APTTon 08-11-2017 aPTT 42.8 s High 25.0-35.0 [facility] Comment on above: Order Comment: [...] THIS PURPOSE. Performed By: #### 1 53, ####[facility] aPTT 27.2 s Normal 25.0-35.0 [facility] Comment on [...] THIS PURPOSE. Performed By: #### 5 6101, 34311 ####[facility] ARTERIAL BLOOD GAS WITH ICAo n 08-11-2017 BASE EXCESS -7 mmol/L Low -2-2 [facility] Comment on above: Performed By: #### 1 ####[facility] Bicarbonate (HCO3) 18 mmol/L Low 23-27 [facility] Comment on above: Performed By: #### 1 ####[facility] [facility] CO2 34 mmHg Low 35-45 [facility] Comment on above: Performed By: #### 1 ####[facility] DELIVERY SYSTEMS MV Normal [facility] Comment on above: Performed By: #### 1 ####[place] [address] [place] [address], [facility] FIO2 40 % Normal 21-100 [facility] Comment on above: Performed By: #### 1 ####[facility] IONIZED CALCIUM 1.13 mmol/L Normal 1.13-1.32 [facility] Comment on above: Performed By: #### 1 53, ####[facility] [place] [address], [facility] MIN VOLUME 7.2 Normal [facility] Comment on above: Performed By: #### 1 53, ####[facility] [place] [address], [facility] HOSPITAL MODALITY AC Normal [facility] Comment on above: Performed By: #### 1 53, ####[facility] [place] [address], [facility] O2 saturation 95.5 % Normal 94.0-97.0 [facility] Comment on above: Performed By: #### 1 53, ####[facility] [place] [address], [facility] Oxygen in arterial blood 161 mm[Hg] Critically high 75-100 [facility] Comment on above: Performed By: #### 1 53, ####[facility] [place] [address], [facility] PEEP 5.0 CMH20 Normal [facility] Comment on above: Performed By: #### 1 53, ####[facility] [place] [address], [place] PF RATIO 403 mmHg High 50-400 [facility] Comment on above: Performed By: #### 1 53, ####[facility] [place] [address], [place] pH of blood 7.33 [pH] Low 7.35-7.45 [facility] Comment on above: Performed By: #### 1 53, ####[facility] [place] [address], [place] Respiratory rate 16 /min Normal [facility] Comment on above: Performed By: #### 1 53, ####[facility]3000 [facility].[address] TIDAL VOLUME (VT) CC 450 Normal [facility] Comment on above: Performed By: #### 1 53, ####[facility]3000 [facility].[address] BASE EXCESS -9 mmol/L Low -2-2 [facility] Comment on above: Order Comment: RESUL TS CHECKED AND CALLED. ACCURATELY READ BACK BY DAT Performed By: #### 1 53, ####[place] [id number] [facility].[address] Bicarbonate (HCO3) 18 mmol/L Low 23-27 [facility] Comment on above: Order Comment: RESUL TS CHECKED AND CALLED. ACCURATELY READ BACK BY DAT Performed By: #### 1 53, ####[facility]3000 [facility].[address] CO2 44 mmHg Normal 35-45 [facility] Comment on above: Order Comment: RESUL TS CHECKED AND CALLED. ACCURATELY READ BACK BY DAT Performed By: #### 1 53, ####[facility]3000 [facility].[address] IONIZED CALCIUM 1.05 mmol/L Low 1.13-1.32 [facility] Comment on above: Order Comment: RESUL TS CHECKED AND CALLED. ACCURATELY READ BACK BY DAT Performed By: #### 1 53, ####[facility]3000 [facility].[address] O2 saturation 96.9 % Normal 94.0-97.0 [facility] Comment on above: Order Comment: RESUL TS CHECKED AND CALLED. ACCURATELY READ BACK BY DAT Performed By: #### 1 53, ####[facility] [place] [address], [facility] Oxygen in arterial blood 532 mm[Hg] Critically high 75-100 [facility] Comment on above: Order Comment: RESUL TS CHECKED AND CALLED. ACCURATELY READ BACK BY DAT Performed By: #### 1 53, ####[facility] [place] [address], [facility] pH of blood 7.22 [pH] Critically low 7.35-7.45 [facility] Comment on above: Order Comment: RESUL TS CHECKED AND CALLED. ACCURATELY READ BACK BY DAT Performed By: #### 1 53, ####[place] [address] [facility] [place] [address], [facility] BASIC METABOLIC PANELon 03-0 Calcium 8.1 mg/dL Low 8.6-10.3 [facility] Comment on above: Order Comment: No: D o not add to previous draw Performed By: #### 1 53, ####[facility] [facility] [place] [place] [address], [facility] Chloride 116 mmol/L High 98-107 [facility] Comment on above: Order Comment: No: D o not add to previous draw Performed By: #### 1 53, ####[place] [address] [facility] [place] [place] [address], [facility] Creatinine 0.85 mg/dL Normal 0.60-1.20 [facility] Comment on above: Order Comment: No: D o not add to previous draw Performed By: #### 1 53, ####[facility] [place] [address], [facility] Glucose mass conc 109 mg/dL High 70-100 [facility] Comment on above: Order Comment: No: D o not add to previous draw Performed By: #### 1 53, ####[facility] [place] [address], [facility] Potassium molar conc 4.9 mmol/L Normal 3.5-5.1 [facility] Comment on above: Order Comment: No: D o not add to previous draw Performed By: #### 1 53, ####[facility] [place] [address], [place] Sodium 142 mmol/L Normal 136-145 [facility] Comment on above: Order Comment: No: D o not add to previous draw Performed By: #### 1 53, ####[facility] [place] [address], [facility] Urea nitrogen 16 mg/dL Normal 7-25 [facility] Comment on above: Order Comment: No: D o not add to previous draw Performed By: #### 1 53, ####[facility] [id number], [facility] Calcium 7.9 mg/dL Low 8.6-10.3 [facility] Comment on above: Order Comment: No: D o not add to previous draw Performed By: #### 1 53, ####[facility] [place] [address], [facility] Chloride 113 mmol/L High 98-107 [facility] Comment on above: Order Comment: No: D o not add to previous draw Performed By: #### 1 53, ####[facility] [place] [address], [place] CO2 22 mmol/L Normal 21-31 [facility] Comment on above: Order Comment: No: D o not add to previous draw Performed By: #### 1 53, ####[facility] [place] [address], [place] Creatinine 0.68 mg/dL Normal 0.60-1.20 [facility] Comment on above: Order Comment: No: D o not add to previous draw Performed By: #### 1 53, ####[facility] [place] [address], [facility] eGFR (black) mL/min/{1.73_m2} Normal >60 [facility] Comment on above: Order Comment: No: D o not add to previous draw Result Comment: Calc ulation may not be valid for patients over 70 years Performed By: #### 1 53, ####[facility] [place] [address], [facility] eGFR (non-black) mL/min/{1.73_m2} Normal >60 [facility] Comment on above: Order Comment: No: D o not add to previous draw Result Comment: Calc ulation may not be valid for patients over 70 years Performed By: #### 1 53, ####[facility] [place] [address], [facility] Glucose mass conc 141 mg/dL High 70-100 [facility] Comment on above: Order Comment: No: D o not add to previous draw Performed By: #### 1 53, ####[facility] [place] [address], [facility] Potassium molar conc 3.3 mmol/L Low 3.5-5.1 [facility] Comment on above: Order Comment: No: D o not add to previous draw Performed By: #### 1 53, ####[facility] [place] [address], [facility] Sodium 139 mmol/L Normal 136-145 [facility] Comment on above: Order Comment: No: D o not add to previous draw Performed By: #### 1 53, ####[facility] [place] [address], [facility] Urea nitrogen 12 mg/dL Normal 7-25 [facility] Comment on above: Order Comment: No: D o not add to previous draw Performed By: #### 1 53, ####[facility]3000 [facility].[address] CBC W/DIFFon 08-11-2017 ABS BASOPHILS 0.0 10*3/uL Normal 0.0-0.2 [facility] Comment on above: Performed By: #### 1 53, ####[facility]3000 [facility].[address] ABS IMM GRANS 0.0 10*3/uL Normal 0.0-0.2 [facility] Comment on above: Performed By: #### 1 53, ####[facility]3000 [facility].[address] Basophils Auto #/vol (Bld) 0.1 % Normal 0.0-1.0 [facility] Comment on above: Performed By: #### 1 53, ####[facility]3000 [facility].[address] Eosinophils 0.0 10*3/uL Normal 0.0-0.5 [facility] Comment on above: Performed By: #### 1 53, ####[facility]3000 [facility].[address] Eosinophils/100 leukocytes 0.1 % Normal 0.0-6.0 [facility] Comment on above: Performed By: #### 1 53, ####[facility]3000 [facility].[address] Erythrocyte distribution width Auto Ratio (RBC) 15.1 % High 11.5-15.0 [facility] Comment on above: Performed By: #### 1 53, ####[facility] Erythrocytes (RBC) 0 % Normal 0-0 [facility] Comment on above: Performed By: #### 1 ####[facility] Erythrocytes (RBC) 4.46 10*6/uL Normal 3.80-5.00 [facility] Comment on above: Performed By: #### 1 ####[facility]3000 [facility].[address] Hematocrit (HCT) 40.3 % Normal 36.0-45.0 [facility] Comment on above: Performed By: #### 1 ####[place] [address] [address] Hemoglobin mass conc (Bld) 13.5 g/dL Normal 12.0-15.0 [facility] Comment on above: Performed By: #### 1 ####[facility] IMMATURE GRANS 0.2 % Normal 0.0-1.0 [facility] Comment on above: Performed By: #### 1 ####[place] [address] [address] Lymphocytes 0.9 10*3/uL Low 1.2-4.0 [facility] Comment on above: Performed By: #### 1 ####[facility] Lymphocytes/100 leukocytes 5.8 % Low 20.0-45.0 [facility] Comment on above: Performed By: #### 1 ####[place] [address] [address] MCH 30.3 pg Normal 27.0-33.0 [facility] Comment on above: Performed By: #### 1 ####[facility]3000 [facility].[address] MCHC mass conc (RBC) 33.5 g/dL Normal 32.0-35.0 [facility] Comment on above: Performed By: #### 1 ####[facility] MCV 90.4 fL Normal 82.0-98.0 [facility] Comment on above: Performed By: #### 1 ####[facility] Monocytes 0.7 10*3/uL Normal 0.1-1.0 [facility] Comment on above: Performed By: #### 1 ####[facility] [place] [address] MONOS 4.6 % Low 5.0-12.0 [facility] Comment on above: Performed By: #### 1 ####[place] [address] [address] Neutrophils 13.6 10*3/uL High 1.6-7.6 [facility] Comment on above: Performed By: #### 1 ####[facility] Neutrophils/100 leukocytes 89.2 % High 40.0-72.0 [facility] Comment on above: Performed By: #### 1 ####[facility] PLAT CNT 94 10*3/uL Low 150-400 [facility] Comment on above: Result Comment: P = 126 Performed By: #### 1 ####[facility] WBC (Leukocytes) 15.2 10*3/uL High 4.0-10.6 [facility] Comment on above: Performed By: #### 1 ####[facility] ABS BASOPHILS 0.0 10*3/uL Normal 0.0-0.2 [facility] Comment on above: Performed By: #### 5 0103 ####[facility] ABS IMM GRANS 0.1 10*3/uL Normal 0.0-0.2 [facility] Comment on above: Performed By: #### 5 0103 ####[facility] Basophils Auto #/vol (Bld) 0.3 % Normal 0.0-1.0 [facility] Comment on above: Performed By: #### 5 0103 ####[facility] Eosinophils 0.0 10*3/uL Normal 0.0-0.5 [facility] Comment on above: Performed By: #### 5 0103 ####[facility]3000 [facility].[address] Eosinophils/100 leukocytes 0.2 % Normal 0.0-6.0 [facility] Comment on above: Performed By: #### 5 0103 ####[facility] Erythrocyte distribution width Auto Ratio (RBC) 14.3 % Normal 11.5-15.0 [facility] Comment on above: Performed By: #### 5 0103 ####[facility] Erythrocytes (RBC) 3.50 10*6/uL Low 3.80-5.00 [facility] Comment on above: Performed By: #### 5 0103 ####[facility]3000 [facility].[address] Erythrocytes (RBC) 0 % Normal 0-0 [facility] Comment on above: Performed By: #### 5 0103 ####[facility]3000 [facility].[address] Hematocrit (HCT) 32.5 % Low 36.0-45.0 [facility] Comment on above: Performed By: #### 5 0103 ####[facility] Hemoglobin mass conc (Bld) 10.9 g/dL Low 12.0-15.0 [facility] Comment on above: Performed By: #### 5 0103 ####[facility] IMMATURE GRANS 0.4 % Normal 0.0-1.0 [facility] Comment on above: Performed By: #### 5 0103 ####[facility] Lymphocytes 2.3 10*3/uL Normal 1.2-4.0 [facility] Comment on above: Performed By: #### 5 0103 ####[facility] Lymphocytes/100 leukocytes 17.6 % Low 20.0-45.0 [facility] Comment on above: Performed By: #### 5 0103 ####[facility] MCH 31.1 pg Normal 27.0-33.0 [facility] Comment on above: Performed By: #### 5 0103 ####[facility]3000 [facility].[address] MCHC mass conc (RBC) 33.5 g/dL Normal 32.0-35.0 [facility] Comment on above: Performed By: #### 5 0103 ####[facility] MCV 92.9 fL Normal 82.0-98.0 [facility] Comment on above: Performed By: #### 5 0103 ####[facility] Monocytes 0.8 10*3/uL Normal 0.1-1.0 [facility] Comment on above: Performed By: #### 5 0103 ####[facility] MONOS 6.1 % Normal 5.0-12.0 [facility] Comment on above: Performed By: #### 5 0103 ####[facility] Neutrophils 9.7 10*3/uL High 1.6-7.6 [facility] Comment on above: Performed By: #### 5 0103 ####[facility] Neutrophils/100 leukocytes 75.4 % High 40.0-72.0 [facility] Comment on above: Performed By: #### 5 0103 ####[facility] PLAT CNT 126 10*3/uL Low 150-400 [facility] Comment on above: Performed By: #### 5 0103 ####[facility] WBC (Leukocytes) 12.9 10*3/uL High 4.0-10.6 [facility] Comment on above: Performed By: #### 5 0103 ####[facility]3000 [facility] [place] [address], [facility] COMP METABOLIC PANELon 08-11 Alanine aminotransferase (ALT) 8 U/L Normal 7-52 [facility] Comment on above: Performed By: #### 0 0121, 05404 ####[facility], [place] [id number] [place] [address] Albumin 2.6 g/dL Low 3.5-5.7 [facility] Comment on above: Performed By: #### 0 0121, 55126 ####[facility]3000 [facility], [place] [id number] [place] [address] ALKALINE PHOSPH 34 IU/L Normal 34-104 [facility] Comment on above: Performed By: #### 0 0121, 22078 ####[facility]3000 [facility].[address] Aspartate aminotransferase (AST) 11 U/L Low 13-39 [facility] Comment on above: Performed By: #### 0 0121, 95547 ####[facility]3000 [facility], [place] [address] Bilirubin (total) 0.7 mg/dL Normal 0.3-1.0 [facility] Comment on above: Performed By: #### 0 0121, 76869 ####[facility] [facility] [place] [address], [facility] Calcium 7.4 mg/dL Low 8.6-10.3 [facility] Comment on above: Performed By: #### 0 0121, 52212 ####[facility]3000 [facility] [place] [address], [facility] Chloride 112 mmol/L High 98-107 [facility] Comment on above: Performed By: #### 0 0121, 63048 ####[facility] [place] [address], [facility] CO2 22 mmol/L Normal 21-31 [facility] Comment on above: Performed By: #### 0 0121, 52456 ####[facility] [place] [address], [facility] Creatinine 0.83 mg/dL Normal 0.60-1.20 [facility] Comment on above: Performed By: #### 0 0121, 04162 ####[facility] [place] [address], [facility] eGFR (black) mL/min/{1.73_m2} Normal >60 [facility] Comment on above: Result Comment: Calc ulation may not be valid for patients over 70 years Performed By: #### 0 0121, 76487 ####[facility] [place] [address], [facility] eGFR (non-black) mL/min/{1.73_m2} Normal >60 [facility] Comment on above: Result Comment: Calc ulation may not be valid for patients over 70 years Performed By: #### 0 0121, 33890 ####[facility] [place] [address], [facility] Glucose mass conc 138 mg/dL High 70-100 [facility] Comment on above: Performed By: #### 0 0121, 74660 ####[facility] [place] [address], [facility] Potassium molar conc 4.0 mmol/L Normal 3.5-5.1 [facility] Comment on above: Performed By: #### 0 0121, 23252 ####[facility] [place] [address], [facility] Protein 4.1 g/dL Low 6.0-8.3 [facility] Comment on above: Performed By: #### 0 0121, 29691 ####[facility] [place] [address], [facility] Sodium 138 mmol/L Normal 136-145 [facility] Comment on above: Performed By: #### 0 0121, 89695 ####[facility] [place] [address], [facility] Urea nitrogen 16 mg/dL Normal 7-25 [facility] Comment on above: Performed By: #### 0 0121, 09283 ####[facility]3000 [facility].[address] Consultationon 08-11-2017 Consultation MR#: [id number] Pt. Name: Judith Khan Date of Service: 08/10/2017 Room #: [id number] [id number] Birthdate: 1945 Referring Physician: JAYE FOR CONSULTATION: Critical care management status post splenectomy,ventilatory management.HISTORY OF PRESENT ILLNESS: Ms. Judith Khan is a 72-year-old female witha history of hypertension, hyperlipidemia, diabetes, and COPD, whopresented as a transfer from [place], [place] with a traumatic brain injury.The patient reportedly fell, as reported by her daughter, [facility] on 07/22/2017, in her home. She had [...] days. She presented to the hospital in [place], [place], and aCT abdomen and pelvis was obtained that demonstrated a grade 5 spleniclaceration. The patient was initially hemodynamically stable per reportsfrom the outside facility, however she became markedly hypotensive,unresponsive to multiple fluid boluses, and was transferred to [facility] as a level 1 trauma. When [place], she had received 3 L of crystalloid and 4 units of blood atthat time and only transiently responded to this fluid resuscitation. Shewas hypotensive in the [place] and an emergent right femoral Cordis wasplaced [...] chronic obstructivepulmonary disease, not on home O2; rzb-aysoetb-hadarqyxl diabetes mellitus,type 2; anxiety.PAST SURGICAL HISTORY: Hysterectomy, [...] surgicaldressing, clean, dry, and intact with left-sided WOEN drain withbloody/serosanguineous output.PELVIS: Stable. Monroe catheter in [...] outside facilityreviewed with attending surgeon in [place] with evidence of rupturedspleen with blood products [...] past. GCS is 15reported in the [place], currently GCS is 3T, intubated and sedated.She [...] the setting ofcritical care status.Endocrine: History of whq-lqbpjrl-tuuejqqkd diabetes mellitus, type 2, onhome metformin. We [...] was placed in emergent setting [place], this will be removed/replaced within 24 hours [...] Dict: 08/11/2017/04:38 A/Pippa Gutierrez Trans: 08/11/2017 02:22 [id number] Normal [facility] FRESH FROZEN PLASMA 2 UNITSo n 08-11-2017 PRODUCT CODE 1 E2701 Normal [facility] Comment on above: Order Comment: INR: 1.22 ,PTT: 27.2 at the time of order ;Indication: Activebleeding/invasive procedure with prolonged PT/PTT or INR > 1.6 Performed By: #### 1 7224, 53597 ####[facility] PRODUCT CODE 2 E2701 Normal [facility] Comment on above: Order Comment: INR: 1.22 ,PTT: 27.2 at the time of order ;Indication: Activebleeding/invasive procedure with prolonged PT/PTT or INR > 1.6 Performed By: #### 1 53, ####[facility] PRODUCT STATUS 1 PT Normal [facility] Comment on above: Order Comment: INR: 1.22 ,PTT: 27.2 at the time of order ;Indication: Activebleeding/invasive procedure with prolonged PT/PTT or INR > 1.6 Result Comment: Resu lt changed by IF on 08/11/2017 00:27. The previous value was XX.Result changed by IF on 08/12/2017 02:00. The previous value was IS. Performed By: #### 1 53, ####[facility] PRODUCT STATUS 2 PT Normal [facility] Comment on above: Order Comment: INR: 1.22 ,PTT: 27.2 at the time of order ;Indication: Activebleeding/invasive procedure with prolonged PT/PTT or INR > 1.6 Result Comment: Resu lt changed by IF on 08/11/2017 03:17. The previous value was XM.Result changed by IF on 08/13/2017 02:00. The previous value was IS. Performed By: #### 1 53, ####[facility] UNIT ABO 1 O Normal [facility] Comment on above: Order Comment: INR: 1.22 ,PTT: 27.2 at the time of order ;Indication: Activebleeding/invasive procedure with prolonged PT/PTT or INR > 1.6 Performed By: #### 1 53, ####[facility] UNIT ABO 2 O Normal [facility] Comment on above: Order Comment: INR: 1.22 ,PTT: 27.2 at the time of order ;Indication: Activebleeding/invasive procedure with prolonged PT/PTT or INR > 1.6 Performed By: #### 1 53, ####[facility] UNIT ID 1 [id number] Normal [facility] Comment on above: Order Comment: INR: 1.22 ,PTT: 27.2 at the time of order ;Indication: Activebleeding/invasive procedure with prolonged PT/PTT or INR > 1.6 Performed By: #### 1 53, ####[facility]3000 [facility].[address] UNIT ID 2 [id number] Normal [facility] Comment on above: Order Comment: INR: 1.22 ,PTT: 27.2 at the time of order ;Indication: Activebleeding/invasive procedure with prolonged PT/PTT or INR > 1.6 Performed By: #### 1 53, ####[facility]3000 [facility].[address] UNIT RH 1 Positive Normal [facility] Comment on above: Order Comment: INR: 1.22 ,PTT: 27.2 at the time of order ;Indication: Activebleeding/invasive procedure with prolonged PT/PTT or INR > 1.6 Performed By: #### 1 53, ####[facility]3000 [facility].[address] UNIT RH 2 Negative Normal [facility] Comment on above: Order Comment: INR: 1.22 ,PTT: 27.2 at the time of order ;Indication: Activebleeding/invasive procedure with prolonged PT/PTT or INR > 1.6 Performed By: #### 1 53, ####[facility]3000 [facility].[address] HEMATOCRITon 08-11-2017 Hematocrit (HCT) 37.7 % Normal 36.0-45.0 [facility] Comment on above: Order Comment: No: D o not add to previous draw Performed By: #### 1 53, ####[facility]3000 [facility] Hematocrit (HCT) 34.8 % Low 36.0-45.0 [facility] Comment on above: Order Comment: No: D o not add to previous draw Performed By: #### 1 53, ####[facility] HEMOGLOBINon 08-11-2017 Hemoglobin mass conc (Bld) 12.7 g/dL Normal 12.0-15.0 [facility] Comment on above: Order Comment: No: D o not add to previous drawLAB DRAW NOW - PER CECY MCELROY Performed By: #### 1 53, ####[facility]3000 [facility] Hemoglobin mass conc (Bld) 11.8 g/dL Low 12.0-15.0 [facility] Comment on above: Order Comment: No: D o not add to previous draw Performed By: #### 1 53, ####[facility]3000 [facility].[address] History and Physicalon 08-11 History and Physical MR#: [id number] Pt. Name: Judith Khan Admitted: 08/11/2017 Date of : 1945 Attending Physician: Alexander Olson M.D. Room #: SIC [id number] Discharge Date: HISTORY AND PHYSICALCHIEF COMPLAINT: Trauma [...] any other blood products. [facility] [...] they were fluctuating while in the Trauma [place],stabilized with fluid.GENERAL: Alert and oriented, no acute [...] Dict: 08/11/2017/12:27 A/Pippa Delgado Trans: 08/11/2017 08:41 A/Izabela_JN:[id number] Normal [facility] LACTATE BLOODon 08-11-2017 Lactate 1.1 mmol/L Normal .5-2.2 [facility] Comment on above: Order Comment: No: D o not add to previous draw Performed By: #### 1 53, ####[facility]3000 [facility] [place] [address], [facility] Lactate 1.3 mmol/L Normal .5-2.2 [facility] Comment on above: Performed By: #### 1 53, ####[facility]3000 [facility] [place] [address], [facility] LIPASE BLOODon 08-11-2017 Lipase 13 Units/L Normal 11-82 [facility] Comment on above: Performed By: #### 0 0121, 73419 ####[facility]3000 [facility] [place] [address], [facility] LIVER BATTERYon 08-11-2017 Alanine aminotransferase (ALT) 18 U/L Normal 7-52 [facility] Comment on above: Order Comment: No: D o not add to previous draw Performed By: #### 1 53, ####[facility] [place] [address], [facility] Albumin 2.8 g/dL Low 3.5-5.7 [facility] Comment on above: Order Comment: No: D o not add to previous draw Performed By: #### 1 53, ####[facility] [place] [address], [facility] ALKALINE PHOSPH 36 IU/L Normal 34-104 [facility] Comment on above: Order Comment: No: D o not add to previous draw Performed By: #### 1 53, ####[facility] [place] [address], [facility] Aspartate aminotransferase (AST) 30 U/L Normal 13-39 [facility] Comment on above: Order Comment: No: D o not add to previous draw Performed By: #### 1 53, ####[facility] [place] [address], [place] Bilirubin (direct) 0.2 mg/dL Normal 0.0-0.2 [facility] Comment on above: Order Comment: No: D o not add to previous draw Performed By: #### 1 53, ####[facility] [place] [address], [place] Bilirubin (total) 0.9 mg/dL Normal 0.3-1.0 [facility] Comment on above: Order Comment: No: D o not add to previous draw Performed By: #### 1 53, ####[facility] [place] [address], [place] Protein 4.0 g/dL Low 6.0-8.3 [facility] Comment on above: Order Comment: No: D o not add to previous draw Performed By: #### 1 53, ####[facility]3000 [facility].[address] MAGNESIUM BLOODon 08-11-2017 Magnesium 1.4 mg/dL Low 1.9-2.7 [facility] Comment on above: Order Comment: No: D o not add to previous draw Performed By: #### 1 53, ####[facility]3000 [facility].[address] Operative Reporton 8 Operative Report MR#: [id number] [facility] Room #: SIC [id number] Discharge Date: Birthdate: 1945 OPERATIVE REPORTDATE OF SURGERY: 08/11/2017SURGEON: Alexander Olson M.D.ASSISTANTS: Aldo Villasenor M.D. PhD; ALEXANDER GutierrezREOPERATIVE DIAGNOSES: Traumatic splenic rupture.POSTOPERATIVE DIAGNOSIS: Traumatic splenic rupture.PROCEDURE: Splenectomy for trauma.INDICATION: This is a 72-year-old white female, [facility] having been evaluated for a [...] 08/11/2017/06:29 A/Aldo Villasenor, MDDate Trans: 08/11/2017 03:54 P/mmoDN_JN:[id number] Normal [facility] PHOSPHORUS BLOODon 8 Phosphate 3.1 mg/dL Normal 2.5-5.0 [facility] Comment on above: Order Comment: No: D o not add to previous draw Performed By: #### 1 53, ####[facility] PLATELET APHERESIS 1 UNITon 08-11-2017 PRODUCT CODE 1 E7006 Normal [facility] Comment on above: Order Comment: Plt c ount at the time of order: 126 ;Indication: Platelet-inhibitingdrug therapy with invasive procedure/bleeding Performed By: #### 1 53, ####[facility] PRODUCT STATUS 1 PT Normal [facility] Comment on above: Order Comment: Plt c ount at the time of order: 126 ;Indication: Platelet-inhibitingdrug therapy with invasive procedure/bleeding Result Comment: Resu lt changed by IF on 08/11/2017 00:20. The previous value was XM.Result changed by IF on 08/12/2017 02:00. The previous value was IS. Performed By: #### 1 53, ####[facility]3000 [facility].[address] UNIT ABO 1 O Normal [facility] Comment on above: Order Comment: Plt c ount at the time of order: 126 ;Indication: Platelet-inhibitingdrug therapy with invasive procedure/bleeding Performed By: #### 1 53, ####[address] UNIT ID 1 [id number] Normal [facility] Comment on above: Order Comment: Plt c ount at the time of order: 126 ;Indication: Platelet-inhibitingdrug therapy with invasive procedure/bleeding Performed By: #### 1 53, ####[address] UNIT RH 1 Positive Normal [facility] Comment on above: Order Comment: Plt c ount at the time of order: 126 ;Indication: Platelet-inhibitingdrug therapy with invasive procedure/bleeding Performed By: #### 1 53, ####[address] POC GLUCOSE LABon 08-11-2017 Glucose mass conc 100 mg/dL Normal 70-100 [facility] Comment on above: Performed By: #### 1 53, ####[address] PORTABLE ABDOMENon 8 PORTABLE ABDOMEN [facility] [address] [place] [address] Patient Name: JUDITH KHAN : 1945Sex: FAge: Race: WhiteMRN: [id number]. Location: EMERPatient Status: IVisit #: [id number] Date: 08/11/2017 12:35:00 AMCompleted Date: 08/11/2017 01:07 AMRequesting Provider: ALEXANDER OLSON Attending Provider: ALEXANDER OLSON Report Copy To: Signs & Symptoms: Intra-op portable abdomenHistory: R/O foreign bodyComments: R/O foreign bodyExam: PORTABLE ABDOMENAccession #: [id number] POR TABLE ABDOMEN 08/11/2017 1:07 AM EST [...] findings. Electronically signed by:Kristian Nascimento. Transcribed by: [email or web address], User Resident: NICOLETTE TOTHANElectronically Signed by: KRISTIAN NASCIMENTO @ 08/11/2017 12:16 PMI personally read this/these film(s) with this resident Normal [facility] Comment on above: Order Comment: R/O f oreign body PORTABLE CHEST 1 VIEWon 03-0 PORTABLE CHEST 1 VIEW [facility] [address] [place] [address] Patient Name: JUDITH KHAN : 1945Sex: FAge: Race: WhiteMRN: [id number]. Location: [id number] Status: IVisit #: [id number] Date: 08/11/2017 1:45:00 AMCompleted Date: 08/11/2017 02:13 AMRequesting Provider: CARMENZA WINTER Attending Provider: ALEXANDER OLSON Report Copy To: Signs & Symptoms: Post OPHistory: Patient history not availableComments: Check E.T. Position, also to chest OGT placementExam: PORTABLE CHEST 1 VIEWAccession #: [id number] POR TABLE CHEST 1 VIEW 08/11/2017 2:13 [...] findings. Electronically signed by:Kristian Nascimento. Transcribed by: [email or web address], User Resident: NICOLETTE TOTHANElectronically Signed by: KRISTIAN NASCIMENTO @ 08/11/2017 12:17 PMI personally read this/these film(s) with this resident Normal [facility] Comment on above: Order Comment: Check E.T. Position, also to chest OGT placement PROTHROMBIN TIMEon 8 INR Coag RelTime (PPP) 1.44 {INR} High 0.91-1.16 [facility] Comment on above: Order Comment: [...] OF ACTION, CLINICALEFFECTIVENESS, AND OPTIMAL THERAPEUTIC RANGE. [id number];108:231S-246S. Performed By: #### 1 6751, 83889 ####[facility] Prothrombin time (PT) Coag time (PPP) 17.7 s High 12.3-14.8 [facility] Comment on above: Order Comment: No: D o not add to previous draw Result Comment: ALL RESULTS MUST BE INTERPRETED WITH RESPECT TO BLOOD DRAWING ARTIFACTOR DILUTION ERROR OF ANTICOAGULANT AT THE TIME OF SAMPLING. Performed By: #### 1 0054, 60699 ####[facility] [place] [address], [facility] INR Coag RelTime (PPP) 1.22 {INR} High 0.91-1.16 [facility] Comment on [...] OF ACTION, CLINICALEFFECTIVENESS, AND OPTIMAL THERAPEUTIC RANGE. [id number];108:231S-246S. Performed By: #### 5 6101, 49666 ####[facility] [place] [address], [facility] Prothrombin time (PT) Coag time (PPP) 15.5 s High 12.3-14.8 [facility] Comment on above: Result Comment: ALL RESULTS MUST BE INTERPRETED WITH RESPECT TO BLOOD DRAWING ARTIFACTOR DILUTION ERROR OF ANTICOAGULANT AT THE TIME OF SAMPLING. Performed By: #### 5 6101, 22018 ####[facility] [place] [address], [facility] RBC'S 4 UNITSon 08-11-2017 CROSSMATCH INTERP 1 COMP Normal [facility] Comment on above: Performed By: #### 8 6004 ####[facility] [place] [address], [place] CROSSMATCH INTERP 2 COMP Normal [facility] Comment on above: Performed By: #### 8 6004 ####[facility] [place] [address], [place] CROSSMATCH INTERP 3 COMP Normal [facility] Comment on above: Performed By: #### 8 6004 ####[facility] [place] [address], [place] CROSSMATCH INTERP 4 COMP Normal [facility] Comment on above: Performed By: #### 8 6004 ####[facility] [place] [address], [place] PRODUCT CODE 1 E0686 Normal [facility] Comment on above: Performed By: #### 8 6004 ####[facility] [place] [address], [place] PRODUCT CODE 2 E0336 Normal [facility] Comment on above: Performed By: #### 8 6004 ####[facility] [place] [address], [place] PRODUCT CODE 3 E0336 Normal [facility] Comment on above: Performed By: #### 8 6004 ####[facility] [place] [address], [place] PRODUCT CODE 4 E0336 Normal [facility] Comment on above: Performed By: #### 8 6004 ####[facility] [place] [address], [facility] PRODUCT STATUS 1 RE Normal [facility] Comment on above: Result Comment: Resu lt changed by IF on 08/11/2017 00:26. The previous value was XM.Result changed by IF on 08/11/2017 01:42. The previous value was IS.Result changed by IF on 08/14/2017 07:03. The previous value was XM. Performed By: #### 8 6004 ####[facility] [facility] [place] [address], [facility] PRODUCT STATUS 2 PT Normal [facility] Comment on above: Result Comment: Resu lt changed by IF on 08/11/2017 00:26. The previous value was XM.Result changed by IF on 08/12/2017 02:00. The previous value was IS. Performed By: #### 8 6004 ####[facility] [facility] [place] [address], [facility] PRODUCT STATUS 3 RE Normal [facility] Comment on above: Result Comment: Resu lt changed by IF on 08/12/2017 15:16. The previous value was XX. Performed By: #### 8 6004 ####[facility]3000 [facility] [place] [address], [facility] PRODUCT STATUS 4 RE Normal [facility] Comment on above: Result Comment: Resu lt changed by IF on 08/11/2017 00:26. The previous value was XM.Result changed by IF on 08/11/2017 01:42. The previous value was IS.Result changed by IF on 08/14/2017 07:03. The previous value was XM. Performed By: #### 8 6004 ####[facility] [facility] [place] [address], [facility] UNIT ABO 1 O Normal [facility] Comment on above: Performed By: #### 8 6004 ####[facility] [place] [address], [facility] UNIT ABO 2 O Normal [facility] Comment on above: Performed By: #### 8 6004 ####[facility] [place] [address], [facility] UNIT ABO 3 O Normal [facility] Comment on above: Performed By: #### 8 6004 ####[facility] [place] [address], [place] UNIT ABO 4 O Normal [facility] Comment on above: Performed By: #### 8 6004 ####[facility] [place] [address], [facility] UNIT ID 1 [id number] Normal [facility] Comment on above: Performed By: #### 8 6004 ####[facility] [place] [address], [facility] UNIT ID 2 [id number] Normal [facility] Comment on above: Performed By: #### 8 6004 ####[facility] [place] [address], [facility] UNIT ID 3 [id number] Normal [facility] Comment on above: Performed By: #### 8 6004 ####[facility] [place] [address], [facility] UNIT ID 4 [id number] Normal [facility] Comment on above: Performed By: #### 8 6004 ####[facility] [place] [address], [place] UNIT RH 1 Negative Normal [facility] Comment on above: Performed By: #### 8 6004 ####[facility] [place] [address], [place] UNIT RH 2 Negative Normal [facility] Comment on above: Performed By: #### 8 6004 ####[facility] [place] [address], [facility] UNIT RH 3 Negative Normal [facility] Comment on above: Performed By: #### 8 6004 ####[facility] [place] [address], [facility] UNIT RH 4 Negative Normal [facility] Comment on above: Performed By: #### 8 6004 ####[facility] [place] [address], [facility] SERUM TESTon 08-11 TEST Negative Normal [facility] Comment on above: Performed By: #### 4 6473 ####[facility] TYPE AND CROSSMATCHon 2017 ABO INTERPRETATION O Normal [facility] Comment on above: Performed By: #### 6 2594 ####[facility] ANTIBODY SCREEN Negative Normal [facility] Comment on above: Performed By: #### 6 2594 ####[facility] [place] [address], [facility] RH INTERPRETATION Negative Normal [facility] Comment on above: Performed By: #### 6 2594 ####[facility] Vital Signs Date Time Vital Sign Value Performing Clinician Facility 07-16-2024 14:51-0500 Diastolic blood pressure 71 mm[Hg] Mariola Montes PA-C Work Phone: [facility] 07-16-2024 14:51-0500 Heart rate 97 /min Mariola Montes PA-C Work Phone: [facility] 07-16-2024 14:51-0500 SaO2% (BldA) [Mass fraction] 97 % Mariola Montes PA-C Work Phone: [facility] 07-16-2024 14:51-0500 Systolic blood pressure 149 mm[Hg] Mariola HANSONC Work Phone: [facility] 05-21-2024 12:59-0500 Body mass index (BMI) [Ratio] 17.97 kg/m2 Giovanni Gill COMMUNITY OUTREACH DIRECTOR Work Phone: [facility] 05-21-2024 12:59-0500 Body weight 48.99 kg Giovanni Gill COMMUNITY OUTREACH DIRECTOR Work Phone: [facility] 05-21-2024 12:59-0500 Diastolic blood pressure 76 mm[Hg] Giovanni Franklin COMMUNITY OUTREACH DIRECTOR Work Phone: [facility] 05-21-2024 12:59-0500 Heart rate 68 /min Giovanni Franklin COMMUNITY OUTREACH DIRECTOR Work Phone: [facility] 05-21-2024 12:59-0500 Systolic blood pressure 125 mm[Hg] Giovanni Franklin COMMUNITY OUTREACH DIRECTOR Work Phone: [facility] 04-21-2024 08:39-0500 Body mass index (BMI) [Ratio] 18.64 kg/m2 Giovanni Gill COMMUNITY OUTREACH DIRECTOR Work Phone: [facility] 04-21-2024 08:39-0500 Body weight 50.8 kg Giovanni Gill COMMUNITY OUTREACH DIRECTOR Work Phone: [facility] 04-21-2024 08:39-0500 Diastolic blood pressure 75 mm[Hg] Giovanni Franklin COMMUNITY OUTREACH DIRECTOR Work Phone: [facility] 04-21-2024 08:39-0500 Heart rate 76 /min Giovanni Franklin COMMUNITY OUTREACH DIRECTOR Work Phone: [facility] 04-21-2024 08:39-0500 Systolic blood pressure 128 mm[Hg] Giovanni Franklin COMMUNITY OUTREACH DIRECTOR Work Phone: [facility] 02-22-2024 14:35-0400 SaO2% (BldA) [Mass fraction] 95 % Mariola HANSONC Work Phone: [facility] 02-22-2024 14:33-0400 Diastolic blood pressure 73 mm[Hg] Mariola Montes PA-C Work Phone: [facility] 02-22-2024 14:33-0400 Heart rate 92 /min Mariola Simon PA-C Work Phone: [facility] 02-22-2024 14:33-0400 Systolic blood pressure 133 mm[Hg] Mariola Simon PA-C Work Phone: [facility] 01-14-2024 13:40-0400 Body height 167.6 cm Mariola Simon PA-C Work Phone: [facility] 01-14-2024 13:40-0400 Body mass index (BMI) [Ratio] 19.21 kg/m2 Mariola Simon PA-C Work Phone: [facility] 01-14-2024 13:40-0400 Body weight 53.98 kg Mariola Simon PA-C Work Phone: [facility] 01-14-2024 13:40-0400 Diastolic blood pressure 63 mm[Hg] Mariola Simon PA-C Work Phone: [facility] 01-14-2024 13:40-0400 Heart rate 92 /min Mariola Simon PA-C Work Phone: [facility] 01-14-2024 13:40-0400 SaO2% (BldA) [Mass fraction] 92 % Mariola Simon PA-C Work Phone: [facility] 01-14-2024 13:40-0400 Systolic blood pressure 144 mm[Hg] Mariola Simon PA-C Work Phone: [facility] 10-07-2023 09:46-0400 Diastolic blood pressure 70 mm[Hg] Mri (I-Stat/1.5t/3t) Work Phone: [facility] 10-07-2023 09:46-0400 Heart rate 103 /min Mri (I-Stat/1.5t/3t) Work Phone: [facility] 10-07-2023 09:46-0400 Respiratory rate 16 /min Mri (I-Stat/1.5t/3t) Work Phone: [facility] 10-07-2023 09:46-0400 SaO2% (BldA) [Mass fraction] 93 % Mri (I-Stat/1.5t/3t) Work Phone: [facility] Comment on above: RA 10-07-2023 09:46-0400 Systolic blood pressure 144 mm[Hg] Mri (I-Stat/1.5t/3t) Work Phone: [facility] 09-13-2023 09:23-0400 Body height 167.6 cm David Valente MD Work Phone: [facility] 09-13-2023 09:23-0400 Body weight 55.79 kg David Valente MD Work Phone: [facility] 09-13-2023 09:23-0400 Diastolic blood pressure 71 mm[Hg] David Valente MD Work Phone: [facility] 09-13-2023 09:23-0400 Heart rate 85 /min David Valente MD Work Phone: [facility] 09-13-2023 09:23-0400 SaO2% (BldA) [Mass fraction] 95 % David Valente MD Work Phone: [facility] 09-13-2023 09:23-0400 Systolic blood pressure 132 mm[Hg] David Valente MD Work Phone: [facility] 07-16-2023 15:42-0500 Heart rate 117 /min [facility] 07-16-2023 15:42-0500 Respiratory rate 19 /min [facility] 07-16-2023 15:42-0500 SaO2% (BldA) [Mass fraction] 94 % [facility] 07-16-2023 15:00-0500 Diastolic blood pressure 99 mm[Hg] [facility] 07-16-2023 15:00-0500 Mean blood pressure 121 mm[Hg] [facility] 07-16-2023 15:00-0500 Respiratory rate 33 /min [facility] 07-16-2023 15:00-0500 Systolic blood pressure 166 mm[Hg] [facility] 07-16-2023 14:30-0500 Diastolic blood pressure 77 mm[Hg] [facility] 07-16-2023 14:30-0500 Heart rate 103 /min [facility] 07-16-2023 14:30-0500 Mean blood pressure 100 mm[Hg] [facility] 07-16-2023 14:30-0500 Respiratory rate 14 /min [facility] 07-16-2023 14:30-0500 SaO2% (BldA) [Mass fraction] 93 % [facility] 07-16-2023 14:30-0500 Systolic blood pressure 147 mm[Hg] [facility] 07-16-2023 13:30-0500 Body temperature 97.88 [degF] [facility] 07-16-2023 13:30-0500 Diastolic blood pressure 84 mm[Hg] [facility] 07-16-2023 13:30-0500 Mean blood pressure 105 mm[Hg] [facility] 07-16-2023 13:30-0500 Systolic blood pressure 146 mm[Hg] [facility] 07-16-2023 11:37-0500 Body temperature 97.16 [degF] [facility] 07-16-2023 11:37-0500 Heart rate 119 /min [facility] 07-16-2023 11:37-0500 Respiratory rate 18 /min [facility] 06-23-2023 14:00-0500 Hourly [facility] 06-23-2023 14:00-0500 Promise to Return [facility] 06-23-2023 13:00-0500 [facility] 06-23-2023 13:00-0500 Promise to Return [facility] 06-23-2023 12:00-0500 Hour[facility] Round[facility] 06-23-2023 12:00-0500 Promise to Return [facility] 06-23-2023 11:22-0500 Heart rate 107 /min [facility] 06-23-2023 11:22-0500 SaO2% (BldA) [Mass fraction] 94 % [facility] 06-23-2023 11:21-0500 Diastolic blood pressure 82 mm[Hg] [facility] 06-23-2023 11:21-0500 Mean blood pressure 108 mm[Hg] [facility] 06-23-2023 11:21-0500 Systolic blood pressure 162 mm[Hg] [facility] 06-23-2023 11:20-0500 Body temperature 97.7 [degF] [facility] 06-23-2023 08:20-0500 SaO2% (BldA) [Mass fraction] 98 % [facility] 06-23-2023 07:19-0500 Heart rate 84 /min [facility] 06-23-2023 07:19-0500 SaO2% (BldA) [Mass fraction] 100 % [facility] 06-23-2023 07:18-0500 Body temperature 97.52 [degF] [facility] 06-23-2023 07:18-0500 Diastolic blood pressure 81 mm[Hg] [facility] 06-23-2023 07:18-0500 Mean blood pressure 99 mm[Hg] [facility] 06-23-2023 07:18-0500 Systolic blood pressure 137 mm[Hg] [facility] 06-23-2023 06:17-0500 Blood Pressure Location [facility] 06-23-2023 06:17-0500 Body temperature 97.52 [degF] [facility] 06-23-2023 06:17-0500 Diastolic blood pressure 74 mm[Hg] [facility] 06-23-2023 06:17-0500 Heart rate 99 /min [facility] 06-23-2023 06:17-0500 Respiratory rate 17 /min [facility] 06-23-2023 06:17-0500 Systolic blood pressure 159 mm[Hg] [facility] 06-23-2023 05:01-0500 Heart rate 102 /min [facility] 06-23-2023 05:01-0500 Mean blood pressure 98 mm[Hg] [facility] 06-23-2023 05:01-0500 Respiratory rate 19 /min [facility] 06-23-2023 04:30-0500 Mean blood pressure 95 mm[Hg] [facility] 06-23-2023 04:30-0500 Respiratory rate 16 /min [facility] 06-23-2023 03:00-0500 Mean blood pressure 121 mm[Hg] [facility] 06-23-2023 03:00-0500 Respiratory rate 20 /min [facility] 06-23-2023 02:43-0500 Respiratory rate 18 /min [facility] 06-23-2023 02:30-0500 Respiratory rate 18 /min [facility] 06-23-2023 01:40-0500 gluc 96 mg/dL [facility] 06-23-2023 01:40-0500 gluc [facility] 06-23-2023 01:38-0500 gluc 96 mg/dL [facility] 06-23-2023 01:38-0500 gluc [facility] 06-23-2023 01:37-0500 Heart rate 117 /min [facility] 05-15-2023 13:50-0500 Body height 167.64 cm MD Rodrick Sams Work Phone: [facility] 05-15-2023 13:50-0500 Body weight 57.15 kg MD Rodrick Sams Work Phone: [facility] Encounters Encounter Date Encounter Type Care Provider Facility Start: 07-16-2024 End: 07-16-2024 ambulatory MARIOLA MONTES Facility:[facility] Start: 07-16-2024 End: 07-16-2024 Office outpatient visit 40 minutes Mariola Montes PA-C Work Phone: [facility] Comment on above: Parkinson's disease with dyskinesia and fluctuating manifestations (HCC) (Primary Dx); Anxiety disorder due to known physiological condition; Hypophonia with hoarseness Start: 05-21-2024 End: 05-21-2024 Bamboo flowsheet Giovanni Gill COMMUNITY OUTREACH DIRECTOR Work Phone: [facility] Start: 05-21-2024 End: 05-21-2024 Bamboo flowsheet Giovanni Gill COMMUNITY OUTREACH DIRECTOR Work Phone: [facility] Start: 05-21-2024 End: 05-21-2024 Office outpatient visit 25 minutes Giovanni Gill COMMUNITY OUTREACH DIRECTOR [facility] Comment on above: Parkinson's disease, unspecified whether dyskinesia present, unspecified whether manifestations fluctuate (CMS/HCC) (Primary Dx); RLS (restless legs syndrome); Cerebral infarction, chronic; Other chronic pain; Carpal tunnel syndrome of right wrist Start: 05-21-2024 End: 05-21-2024 ambulatory GIOVANNI GILL Not Available Start: 05-03-2024 End: 05-03-2024 ambulatory GIOVANNI GILL Not Available Start: 04-21-2024 End: 04-21-2024 Bamboo flowsheet Giovanni Gill COMMUNITY OUTREACH DIRECTOR [facility] Start: 04-21-2024 End: 04-21-2024 Bamboo chelseaheet Giovanni Gill COMMUNITY OUTREACH DIRECTOR [facility] Start: 04-21-2024 End: 04-21-2024 Office outpatient visit 25 minutes Giovanni Gill COMMUNITY OUTREACH DIRECTOR [facility] Comment on above: Parkinson's disease, unspecified whether dyskinesia present, unspecified whether manifestations fluctuate (CMS/HCC) (Primary Dx); Dyskinesia; RLS (restless legs syndrome); Cerebral infarction, chronic; Bilateral carotid artery stenosis Start: 04-21-2024 End: 04-21-2024 ambulatory GIOVANNI GILL Not Available Start: 02-23-2024 End: 02-25-2024 Refill Mariola Montes PA-C Work Phone: [facility] Comment on above: Refill Request Start: 02-22-2024 End: 02-22-2024 Office outpatient visit 40 minutes Mariola Montes PA-C Work Phone: [facility] Comment on above: Parkinson's disease with dyskinesia and fluctuating manifestations (HCC) (Primary Dx) Start: 02-22-2024 End: 02-22-2024 ambulatory MARIOLA MONTES Facility:[facility] Start: 01-14-2024 End: [facility]14[facility] Start: 01-14-2024 End: 01-14-2024 Office outpatient visit 40 minutes Mariola Montes PA-C Work Phone: [facility] Comment on above: Parkinson's disease with dyskinesia and fluctuating manifestations (HCC) (Primary Dx) Start: 12-20-2023 End: 12-20-2023 ambulatory STEPHENIE PRECIADO [facility] Start: 11-27-2023 End: 11-27-2023 ambulatory VERENA SHEEHAN [facility] Start: 11-19-2023 End: 11-19-2023 ambulatory Rafa Abebe MD Facility:[facility] Start: 11-08-2023 Telephone encounter David Valente MD Work Phone: [facility] Comment on above: Medication Update/Am antadine Start: 10-29-2023 End: 10-29-2023 ambulatory GIOVANNI GILL Not Available Start: 10-22-2023 End: 10-22-2023 ambulatory Rafa Abebe MD Facility: [facility] Start: 10-17-2023 Refill Neelima SegundoFOREST PATROLMAN Work Phone: [facility] Comment on above: Med Change Request Start: 10-17-2023 Telephone encounter David Valente MD Work Phone: [facility] Comment on above: Results (MRI) Start: 10-15-2023 End: 10-15-2023 ambulatory Neelima Ortega APRN.[facility] Work Phone: Neurology Comment on above: Parkinson's disease with dyskinesia and fluctuating manifestations (HCC) (Primary Dx) Start: 10-15-2023 End: 10-15-2023 Telemedicine consultation with patient Neelima Ortega APRN.[facility] Work Phone: Neurology Start: 10-09-2023 Telephone encounter David Valente MD Work Phone: [facility] Start: 10-07-2023 End: 10-07-2023 [facility] Facility:[facility] Start: 10-07-2023 End: 10-07-2023 [facility] Facility:[facility] Start: 10-07-2023 End: 10-07-2023 Subsequent hospital visit by physician Mri 4 Radio Main Q (I-Stat/1.5t/3t) Work Phone: MRI Q Comment on above: Spinal stenosis of c ervical region [M48.02] Abnormal posture [R2 9.3] 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 [M48.062] Start: 09-26-2023 End: 09-26-2023 ambulatory [facility] Start: 09-18-2023 Evaluation and manag ement of inpatient JOSH MCLER [facility] Start: 09-17-2023 End: 09-18-2023 Evaluation and management of inpatient [facility] Start: 09-13-2023 End: 09-13-2023 ambulatory [facility] Facility:[facility] Start: 09-13-2023 End: 09-13-2023 [facility] Facility:[facility] Start: 09-13-2023 End: 09-13-2023 Patient encounter procedure David Valente MD Work Phone: [facility] Comment on above: Hyperreflexia (Prima ry Dx); Spinal stenosis of cervical region; Abnormal posture; Spinal stenosis of lumbar region with neurogenic claudication; Neuropathy; Hypertension, unspecified type; Degenerative myopia with other maculopathy, bilateral eye; Parkinson's disease, unspecified whether dyskinesia present, unspecified whether manifestations fluctuate (HCC); Memory changes Start: 09-03-2023 End: 09-03-2023 ambulatory Rafa Abebe MD Facility: [facility] Start: 08-22-2023 End: 08-22-2023 ambulatory [facility] Start: 08-20-2023 End: 08-20-2023 ambulatory Rafa Abebe MD Facility: [facility] Start: 08-14-2023 End: 08-14-2023 ambulatory Giovanni Gill Facility:[facility] Start: 08-13-2023 End: 08-13-2023 ambulatory [facility] Start: 08-13-2023 End: 08-13-2023 ambulatory [facility] Start: 08-07-2023 End: 08-07-2023 ambulatory [facility] Start: 07-30-2023 End: 07-30-2023 ambulatory Rafa Abebe MD Facility: [facility] Start: 07-16-2023 End: 07-16-2023 Emergency department patient visit Demarco Beaver [facility] Start: 07-16-2023 End: 07-16-2023 Emergency department patient visit [facility]co [facility] Start: 07-06-2023 End: 07-06-2023 ambulatory [facility] Start: 06-23-2023 End: 06-23-2023 ambulatory Mela Espinal [facility] Start: 06-23-2023 End: 06-23-2023 Observation Mela Espinal [facility] Start: 05-15-2023 End: 05-15-2023 ambulatory Giovanni Gill Facility:[facility] Start: 05-15-2023 End: 05-15-2023 ambulatory MD Rodrick Sams Work Phone: [facility] Work Phone: Start: 05-15-2023 End: 05-15-2023 Patient encounter procedure MD Rodrick Sams Work Phone: [facility] [place] Work Phone: Start: 01-12-2023 End: 01-12-2023 ambulatory MILA ROWLEY [facility] Start: 10-09-2022 End: 10-10-[address] RODRICK SAMS . Facility: Start: 05-24-2022 End: 05-25-[address] RODRICK SAMS . Facility: Start: 05-08-2022 End: 05-10-2022 Evaluation and management of inpatient DR RODRICK SAMS . Facility: Start: 03-29-2022 End: 03-29-[address] MISAEL PEDRAZA . Facility: Start: 12-27-2021 End: 12-28-[address] RODRICK SAMS . Facility: Start: 08-13-2017 End: 08-14-2017 Ambulatory DEFAULT PHYSICIAN Facility:[facility] Start: 08-11-2017 End: 08-15-2017 Evaluation and management of inpatient REFERRED SELF Facility:[facility] Start: 07-02-2013 EKG myocardial ischemia David Valente MD Work Phone: [facility] Work Phone: Procedures Date Procedure Procedure Detail Performing Clinician Start: 10-07-2023 Mri spinal canal cer vical w/o contrast matrl David Valente MD Work Phone: Start: 05-15-2023 MRI of head MD Rodrick [...] TRANSFUSE NONAUT HARRY TELETS IN PERIPH VEIN, [facility] SU[facility] MELENDEZIDBob Start: 08-11-2017 TRANSFUSE NONAUT RED BLOOD CELLS IN PERIPH VEIN, [facility] SUPA MELENDEZIDT Appendectomy Mela Espinal Cataract (morphologi c abnormality) Melaterrie Espinal Hysterectomy Mela Espinal Splenectomy Mela Espinal Plan of Treatment Date Care Activity Detail Author Start: 09-17-2026 Diabetes Screening Diabetes Screenin [facility] Start: 09-12-2026 Diabetes Screening Diabetes Screenin g [facility] Start: 09-08-2024 End: 09-08-2024 Patient encounter procedure 09/08/2024 9:40 AM EDT [facility] [address] [address] Giovanni Gill NP [address] [place] [address] [id number] [facility] Start: 06-11-2024 Advance Directive Discussion Advance Directive Discussion [facility] Start: 05-21-2024 End: 05-21-2024 Patient encounter procedure [facility] Comment on above: Arrived Start: 05-03-2024 End: 05-03-2024 Professional / ancillary services management 05/03/2024 3:20 PM EST Ancillary Procedure [facility] [address] [id number] Cerebral infarction, chronic; Bilateral carotid artery stenosis [facility] Comment on above: Cerebral infarction, chronic; Bilateral carotid artery stenosis Start: 04-21-2024 End: 04-21-2024 Patient encounter procedure 04/21/2024 8:40 AM EST [facility] [address] [address] Giovanni Gill NP [address] [facility] [address] [place], [place] [id number] [facility] Comment on above: Arrived Start: 02-22-2024 End: 02-22-2024 Patient encounter procedure 02/22/2024 3:00 PM EDT Office Visit [facility] [address] [place] [address] Mariola Montes PA-C [address] [place] [address] [facility] Start: 02-10-2024 Covid-19 Vaccine ( season) Covid-19 Vaccine () [facility] Start: 02-10-2024 Covid-19 Vaccine ( season) Covid-19 Vaccine () [facility] Start: 02-10-2024 Influenza vaccination [facility] Start: 01-14-2024 End: 01-14-2024 Patient encounter procedure 01/14/2024 2:00 PM EDT Office Visit [facility] [address] [place] [address] Mariola Montes PA-C [address] [place] [address] 3 mo f/u [facility] Comment on above: 3 mo f/u Start: 10-15-2023 End: 10-15-2023 Follow-up encounter 10/15/2023 10:30 AM EDT [facility] [address] [place] [address] Neelima Ortega APRN.[facility] [address] [place] [address] Follow up Neurology Comment on above: Follow up Start: 09-13-2023 End: 12-13-2023 SUJEY BY IFA WITH REFLEX [facility] Work Phone: Comment on above: Expected: 09/13/2023 , Expires: 12/13/2023 Start: 09-13-2023 End: 12-13-2023 Methylmalonate [Moles/volume] in Serum or Plasma [facility] Work Phone: Comment on above: Expected: 09/13/2023 , Expires: 12/13/2023 Start: 09-13-2023 End: 12-13-2023 PROTEIN ELECT RND UR W/INTERP [facility] Work Phone: Comment on above: Expected: 09/13/2023 , Expires: 12/13/2023 Start: 09-13-2023 End: 12-13-2023 PROTEIN ELECTROPHORESIS SERUM W/INTERP [facility] Work Phone: Comment on above: Expected: 09/13/2023 , Expires: 12/13/2023 Start: 06-11-2023 Advance Directive Discussion Advance Directive Discussion [facility] Start: 02-09-2023 Covid-19 Vaccine () Covid-19 Vaccine ( season) [facility] Start: 2021 RSV Vaccine (1 - 1-d ose 75+ series) RSV Vaccine (1 - 1-dose 75+ series) [facility] Start: 10-28-2020 Pneumococcal Vaccine : 50+ (2 of 2 - PCV) Pneumococcal Vaccine: 50+ (2 of 2 - PCV) [facility] Start: 10-28-2020 Pneumococcal Vaccine : 65+ (2 of 2 - PCV) Pneumococcal Vaccine: 65+ (2 of 2 - PCV) [facility] Start: 2011 Screening for osteoporosis Bone Density Screening [facility] Start: 2006 RSV Vaccine (1 - 1-d ose 60+ series) RSV Vaccine (1 - 1-dose 60+ series) [facility] Start: 02-09-1996 Shingrix Vaccine (1 of 2) Avelar grix Vaccine (1 of 2) [facility] Start: 1965 Urine microalbumin profile DTaP,Tdap,Td Vaccine (1 - Tdap) [facility] Start: 02-09-1964 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 mary alice Disease Visit Annual PCP Team Chronic Disease Visit [facility] Start: 02-09-1964 Anxiety Screening Anxiety Screening [facility] Start: 02-09-1964 BP Controlled (<130/80) BP Con trolled (<130/80) [facility] Start: 02-09-1964 Depression Screening Depression Scre ening [facility] Start: 02-09-1964 Hepatitis C screening Hepatitis C Buzz guzman [facility] End: 10-12-2024 MR Cervical spine WO contrast MRI CERVICAL SPINE WO IVCON Radiology Routine Spinal stenosis of cervical region 1 Occurrences starting 09/13/2023 until 10/12/2024 [facility] Work Phone: Comment on above: 1 Occurrences starti ng 09/13/2023 until 10/12/2024 End: 10-12-2024 MR Lumbar spine WO contrast MRI LUMBAR SPINE WO IVCON Radiology Routine Spinal stenosis of lumbar region with neurogenic claudication 1 Occurrences starting 09/13/2023 until 10/12/2024 [facility] Work Phone: Comment on above: 1 Occurrences starti ng 09/13/2023 until 10/12/2024 End: 10-12-2024 MR Thoracic spine WO contrast MRI THORACIC SPINE WO IVCON Radiology Routine Abnormal posture 1 Occurrences starting 09/13/2023 until 10/12/2024 [facility] Work Phone: Comment on above: 1 Occurrences starti ng 09/13/2023 until 10/12/2024 [facility] Immunizations Immunization Date Immunization Notes Care Provider Fa [facility] 03-14-2021 influenza virus vacc ine, unspecified formulation David Valente MD Work Phone: [facility] Payers Date Payer Category Payer Medicare [id number] 2023 Private Health Insurance [employer] SUPPLEMENT [id number] 2023 Unknown 2023 Self-pay [id number] 2011 Medicare [id number] 1959 Medicare [id number] 1959 Unknown [id number] 1946 Unknown [id number] 2.16.840.1.649262.3.579.2 .593 1946 Unknown [id number] 2.16.840.1.589441.3.579.2 .593 1946 Unknown [id number] 2.16.840.1.410980.3.579.2 .593 1946 Unknown [id number] 2.16.840.1.806728.3.579.2 .593 1946 Unknown [id number] 2.16.840.1.027617.3.579.2 .593 1946 Unknown [id number] 2.16.840.1.839474.3.579.2 .727 1946 Unknown [id number] 2.16.840.1.197905.3.579.2 .727 1946 Unknown [id number] 2.16.840.1.546729.3.579.2 .196 1946 Unknown [id number] 2.16.840.1.502933.3.579.2 .196 1946 Unknown [id number] 2.16.840.1.860904.3.579.2 .196 1946 Unknown [id number] 2.16.840.1.728048.3.579.2 .196 1946 Unknown [id number] 2.16.840.1.904433.3.579.2 .196 1946 Unknown [id number] 2.16.840.1.094999.3.579.2 .1259 1946 Unknown [id number] 2.16.840.1.461240.3.579.2 .1259 1946 Unknown [id number] 2.16.840.1.414029.3.579.2 .1259 1946 Unknown [id number] 2.16.840.1.593495.3.579.2 .1259 Medicare [id number] Unknown [id number] 2.16.840.1.334858.3.579.2 .531 Unknown [id number] 2.16.840.1.886932.3.579.2 .531 Social History Date Type Detail Facility Tobacco smoking stat [facility] Unknown if ever smoked [facility] Work Phone: Start: 1945 Sex Assigned At Female [facility] Start: 03-04-2020 End: 02-22-2024 Tobacco smoking status Ex-smoker (finding) [facility] Start: 09-06-2023 End: 09-13-2023 Sex Assigned At Female [facility] Start: [birth year]-02-1957 End: 04-30-2019 History of tobacco use Current smoker [facility] Start: [birth year]02-1957 End: 04-30-2019 History of tobacco use Cigarette Smoker [facility] Start: 09-06-2023 End: 09-13-2023 Cigarettes smoked current (pack per day) - Reported 0.5 [facility] Start: 09-13-2023 End: 02-22-2024 Tobacco use and exposure Smokeless tobacco non-user [facility] Start: 09-13-2023 End: 07-16-2024 Alcohol intake Current non-drinker of alcohol (finding) [facility] Adult Depression Screening Assessment 0 [facility] Start: 1945 Sex Assigned At Not on file [facility] Start: 10-25-2023 [facility] Start: 10-29-2023 End: 05-21-2024 Alcoholic beverage intake Lifetime non-drinker (finding) [facility] Start: 10-25-2023 Alcohol Comment caffeine: 1-2 cups per day [facility] Healthcare Functional Status Date Assessment Result Facility 07-16-2023 Functional Status N/A [facility] 06-23-2023 Functional Status N/A [facility] 06-23-2023 Functional Status [facility] Clinical Notes 01-12-2023 to 07-16-2024 Patient InstructionsMariola Montes PA-C - 07/16/2024 3:00 PM ESTIanGa rayo ABHISHEK - 07/16/2024 2:40 PM Smooth Gill NP - 04/21/2024 8:40 AM Mariola Brewer PA-C - 02/22/2024 3:00 PM EDT Note Date & Type Note Facility 07-16-2024 Instructions Mariola Montes PA-C - 07/16/2024 3:36 PM EST It was a pleasure to see you today. We addressed the following diagnoses Parkinson's disease with dyskinesia and fluctuating manifestations (hcc) (primary encounter diagnosis) My recommendations are as follows: 07/16/2024 Visit: Parkinson's Disease - I am so glad that you have continued to do well. We will add a third amantadine with your evening dose to help with the jerking movements Balance and strength - keep up your home exercises from Parkinson's Disease therpay Look into Parkinson's Disease Exercise Class at your local [facility] Voice - The [employer] makes daily videos with voice exercises to help keep your voice loud and clear. This is free on [employer] Handwriting - take a look at [employer] Pens for tremor. This often will help people write easier I would like to see you back in about 7 months, before next winter. If you need assistance with scheduling, please call [phone], option 2 to speak with one of our scheduling team members. Movement Disorders Medication Schedule: Medications breakfast lunch bedtime ropinerole 0.25mg 1 azilect 1mg 1 sinemet CR 25/100mg 1 1 1 amantadine 100 mg 1 1 1 Return at or around: 01/13/25 If there are any concerns before your next visit, please call or you can send a message through [employer]. You can also now schedule and select appointments through [employer]. Mariola Montes PA-C documented in this encounter [facility] 07-16-2024 History of Present illness Narrative [facility] - FOLLOW UP EVALUATION Primary Movement Disorders Neurologist: David Valente MD Primary Movement Disorders BRUCE: STEPHON oCe Md (Inactive) No address on file Dear Md Rodrick Sams (Inactive): I had the pleasure of seeing Ms. Khan for follow-up today. As you know she is a 79 year old right-handed female with a history of parkinson disease since 2014. She is seen with a daughter. Subjective Previous Plan-02/22/2024 Visit with myself Parkinson's Disease - I am so pleased to hear that your medication change was beneficial. Please continue medications as prescribed below. Continue daily walking Please follow-up in 6 to 8 months, or sooner with any new concerns Interval History: Judith presents to the office for Parkinson's disease follow-up. She has felt very pleased with her condition recently. As recommended she completed Parkinson's disease physical therapy, Occupational Therapy, and speech therapy. She still works on her home exercises religiously with her grand daughter. She is happy with her medication schedule. Until about 2 weeks ago she did not have any dyskinesia at all. More recently she started to experience some dyskinesias in the late evening. Her restless legs are well-controlled with ropinirole. Endorses some frustrations about not being able to do the activities that she used to do before Parkinson's disease. She has strong family support with her daughter and granddaughter. Movement Disorders Medications Schedule - as of the start of the visit: Medications breakfast lunch bedtime ropinerole 0.25mg 1 azilect 1mg 1 sinemet CR 25/100mg 1 1 1 amantadine 100 mg 1 1 Prior Anti-Parkinson Therapies Carbidopa/Levodopa Rasagiline Ropinirole ALLERGIES Allergen Reactions Aleve [Naproxen Sod* Unknown Sulfa (Sulfonamide * Anaphylaxis Current Outpatient Medications Medication Sig carbidopa-levodopa CR (SINEMET CR) 25-100 mg per tablet TAKE 1 TABLET BY MOUTH THREE TIMES A DAY AT 7AM, 12PM, AND 5PM gabapentin (NEURONTIN) 300 mg capsule TAKE 1 CAPSULE BY MOUTH ONCE DAILY X3DAYS, 1 CAPSULE TWICE DAILY X3DAYS THEN 1 CAPSULE 3 TIMES DAILY rasagiline (AZILECT) 1 mg tab Take by mouth. KLOR-CON M20 20 mEq tablet Take 1 tablet by mouth every 12 hours. cyclobenzaprine (FLEXERIL) 10 mg tablet Take 10 [...] Take 1 tablet by mouth once daily. AMLODIPINE BESYLATE (AMLODIPINE ORAL) Take 10 mg by mouth once daily. Cholecalciferol, Vitamin D3, (D3 DOTS) 2,000 unit tab Take 2,000 Units by mouth once daily. MULTIVITAMIN (VITAMIN DAILY ORAL) Take by mouth once daily. amantadine HCl (SYMMETREL) 100 mg tablet Take 1 tablet by mouth three times a day. With each dose of sinemet. ALPRAZolam (XANAX) 1 mg tablet Take 1 mg by mouth at bedtime as needed. potassium chloride (KLOR-CON 10) 10 mEq tablet Take 20 mEq by mouth once daily. No current facility-administered medications for this visit. Objective Vital Signs: BP 149/71 (BP Site: Left Arm, BP Position: Sitting, BP Cuff Size: Regular Adult) Pulse 97 SpO2 97% General Physical Examination: Awake, alert, interactive, no acute distress, normal development, well-kept woman. Mild dyskinesias. MDS-UPDRS Motor subscale condition of exam Medication Off/On/Naiive ON Time of UPDRS Time of Last Medication Last Medication Taken DBS Right N/A DBS Left N/A MDS-UPDRS Motor subscale scores Speech 2-Mild. Loss of modulation, diction, or volume, with a few words unclear, but the overall sentences easy to follow. Facial Expression 1-Slight. Minimal masked facies manifested only by decreased frequency of blinking. Rigidity Neck 1-Slight. Rigidity only detected with activation maneuver. Rigidity Right Upper Extremity 1-Slight. Rigidity only detected with activation maneuver. Rigidity Left Upper Extremity 1-Slight. Rigidity only detected with activation maneuver. Rigidity Right Lower Extremity 0-Normal. No rigidity. Rigidity Left Lower Extremity 0-Normal. No rigidity. Finger Taps Right 0-Normal. No problems. ` Finger Taps Left 0-Normal. No problems. Hand Movements Right 0-Normal. No problem. Hand Movements Left 0-Normal. No problem. Arm Movements Right 0-Normal. No problems. Arm Movements Left 1-Slight. a) the regular rhythm is broken with one or two interruptions or hesitations of the movement, b) slight slowing, c) the amplitude decrements near the end of the sequence. Toe Taps Right 0-Normal. No problem. Toe Taps Left 1-Slight. a) the regular rhythm is broken with one or two interruptions or hesitations of the tapping movement, b) slight slowing, c) the amplitude decrements near the end of the ten taps. Leg Agility Right 0-Normal. No problems. Leg Agility Left 0-Normal. No problems. Arise From Chair 1-Slight. Arising is slower than normal, or may need more than one attempt, or may need to move forward in the chair to arise. No need to use the arms of the chair. Gait 1-Slight. Independent walking with minor gait impairment. Gait Freezing 0-Normal. No freezing. Posture Stability 1-Slight. 3-5 steps, but subject recovers unaided. Posture 2-Mild. Definite flexion, scoliosis or leaning to one side, but patient can correct posture to normal posture when asked to do so. Body Bradykinesia 0-Normal. No problems. Postural Tremor Hand Right 1-Slight. Tremor is present but less than 1cm in amplitude. Postural Tremor Hand Left 1-Slight. Tremor is present but less than 1cm in amplitude. Kinetic Tremor Right 1-Slight. Tremor is present but less than 1cm in amplitude. Kinetic Tremor Left 1-Slight. Tremor [...] tremor. MDS-UPDRS Motor subscale totals Left Total 5 Right Total 3 Midline Total 9 Tremor Total / 10 4 PIGD Total / 3 2 Overall Total 17 Change Better/Worse Better % Change Compared to Last Filed Total -46.87 Assessment and Plan: Assessment Ms. Khan is [...] 1 tablet TID, she notes remarkable improvement. She continues to to do quite well on Sinemet CR. More recently she does endorse some increasing dyskinesias in the early evening. We agreed to add amantadine to her third Sinemet dose. Overall her functional ability has greatly increased after completing Parkinson's disease speech therapy, Occupational Therapy, physical therapy recently. She has been working hard to complete home exercises. This shows in her UPDRS improvement and improved gait today. I encouraged continued exercise, and mentioned the possibility of Parkinson's disease class at the [facility]. The following are the current problems noted and addressed during this visit: Parkinson's disease with dyskinesia and fluctuating manifestations (hcc) (primary encounter diagnosis) Anxiety disorder due to known physiological condition Hypophonia with hoarseness Plan 07/16/2024 Visit: Parkinson's Disease - I am so glad that you have continued to do well. We will add a third amantadine with your evening dose to help with the jerking movements Balance and strength - keep up your home exercises from Parkinson's Disease therpay Look into Parkinson's Disease Exercise Class at your local [facility] Voice - The Parkinson Voice Project makes daily videos with voice exercises to help keep your voice loud and clear. This is free on Youtube Handwriting - take a look at [employer] for tremor. This often will help people write easier I would like to see you back in about 7 months, before next winter. If you need assistance with scheduling, please call [phone], option 2 to speak with one of our scheduling team members. Interested in clinical research? Not currently Updated Movement Disorders Medication Schedule: Medications breakfast lunch bedtime ropinerole 0.25mg 1 azilect 1mg 1 sinemet CR 25/100mg 1 1 1 amantadine 100 mg 1 1 1 Return at or around: 01/13/25 Level of service : 96846 (40-68 min). Time spent 43 min on the day of service, which included preparing to see the patient, [id number] patient care, completing clinical documentation, obtaining and/or [...] WROTF Tablet to not get completed: Patient refused because declined all tablets documented in this encounter [facility] 07-16-2024 Note HNO ID: [id number] Author: MARIOLA MONTES PA-C Service: ? Author Type: Physician Paint Supervisor Type: Progress Notes Filed: 07/16/2024 17:27 Note Text: [facility] - FOLLOW UP EVALUATION Primary Movement Disorders Neurologist: David Valente MD Primary Movement Disorders BRUCE: STEPHON Coe Md (Inactive) No address on file Dear Md Rodrick Sams (Inactive): I had the pleasure of seeing Ms. Khan for follow-up today. As you know she is a 79 year old right-handed female with a history of parkinson disease since 2014. She is seen with a daughter. Subjective Previous Plan-02/22/2024 Visit with myself Parkinson's Disease - I am so pleased to hear that your medication change was beneficial. Please continue medications as prescribed below. Continue daily walking Please follow-up in 6 to 8 months, or sooner with any new concerns Interval History: Judith presents to the office for Parkinson's disease follow-up. She has felt very pleased with her condition recently. As recommended she completed Parkinson's disease physical therapy, Occupational Therapy, and speech therapy. She still works on her home exercises religiously with her grand daughter. She is happy with her medication schedule. Until about 2 weeks ago she did not have any dyskinesia at all. More recently she started to experience some dyskinesias in the late evening. Her restless legs are well-controlled with ropinirole. Endorses some frustrations about not being able to do the activities that she used to do before Parkinson's disease. She has strong family support with her daughter and granddaughter. Movement Disorders Medications Schedule - as of the start of the visit: Medications breakfast lunch bedtime ropinerole 0.25mg 1 azilect 1mg 1 sinemet CR 25/100mg 1 1 1 amantadine 100 mg 1 1 Prior Anti-Parkinson Therapies Carbidopa/Levodopa Rasagiline Ropinirole ALLERGIES Allergen Reactions Aleve [Naproxen Sod* Unknown Sulfa (Sulfonamide * Anaphylaxis Current Outpatient Medications Medication Sig carbidopa-levodopa CR (SINEMET CR) 25-100 mg per tablet TAKE 1 TABLET BY MOUTH THREE TIMES A DAY AT 7AM, 12PM, AND 5PM gabapentin (NEURONTIN) 300 mg capsule TAKE 1 CAPSULE BY MOUTH ONCE DAILY X3DAYS, 1 CAPSULE TWICE DAILY X3DAYS THEN 1 CAPSULE 3 TIMES DAILY rasagiline (AZILECT) 1 mg tab Take by mouth. KLOR-CON M20 20 mEq tablet Take 1 tablet by mouth every 12 hours. cyclobenzaprine (FLEXERIL) 10 mg tablet Take 10 [...] Take 1 tablet by mouth once daily. AMLODIPINE BESYLATE (AMLODIPINE ORAL) Take 10 mg by mouth once daily. Cholecalciferol, Vitamin D3, (D3 DOTS) 2,000 unit tab Take 2,000 Units by mouth once daily. MULTIVITAMIN (VITAMIN DAILY ORAL) Take by mouth once daily. amantadine HCl (SYMMETREL) 100 mg tablet Take 1 tablet by mouth three times a day. With each dose of sinemet. ALPRAZolam (XANAX) 1 mg tablet Take 1 mg by mouth at bedtime as needed. potassium chloride (KLOR-CON 10) 10 mEq tablet Take 20 mEq by mouth once daily. No current facility-administered medications for this visit. Objective Vital Signs: BP 149/71 (BP Site: Left Arm, BP Position: Sitting, BP Cuff Size: Regular Adult) Pulse 97 SpO2 97% General Physical Examination: Awake, alert, interactive, no acute distress, normal development, well-kept woman. Mild dyskinesias. MDS-UPDRS Motor subscale condition of exam Medication Off/On/Naiive ON Time of UPDRS Time of Last Medication Last Medication Taken DBS Right N/A DBS Left N/A MDS-UPDRS Motor subscale scores Speech 2-Mild. Loss of modulation, diction, or volume, with a few words unclear, but the overall sentences easy to follow. Facial Expression 1-Slight. Minimal masked facies manifested only by decreased frequency of blinking. Rigidity Neck 1-Slight. Rigidity only detected with activation maneuver. Rigidity Right Upper Extremity 1-Slight. Rigidity only detected with activation maneuver. Rigidity Left Upper Extremity 1-Slight. Rigidity only detected with activation maneuver. Rigidity Right Lower Extremity 0-Normal. No rigidity. Rigidity Left Lower Extremity 0-Normal. No rigidity. Finger Taps Right 0-Normal. No problems. ` Finger Taps Left 0-Normal. No problems. Hand Movements Right 0-Normal. No problem. Hand Movements Left 0-Normal. No problem. Arm Movements Right 0-Normal. No problems. Arm Movements Left 1-Slight. a) the regular rhythm is broken with one or two (more content not included)... [facility] 07-16-2024 Note HNO ID: [id number] Author: GA SHAW MA Service: ? Author Type: Calculation Reviewer Type: Progress Notes Filed: 07/16/2024 17:27 Note Text: Reason for WROTF Tablet to not get completed: Patient refused because declined all tablets [facility] 04-21-2024 History of Present illness Narrative Images from the original note were not included. Chief Complaint Patient presents with Parkinson's Disease Insomnia Carpal Tunnel Subjective Judith Khan, 79 y.o., female Patient presents today for a follow up to Parkinson's. She presents with a family member, Jaimee. She admits ED visit at [facility] recently for fall, states she was diagnosed with a UTI. Currently on Cipro for this and she states she is feeling much better.. She follows with [facility] and [facility] and admits visits. She continues [...] wrist extensors , wrist flexor 5/5 , meat and seafood manager strength 4/5. LUE Strength deltoid , biceps , triceps , wrist extensors , wrist flexor , meat and seafood manager strength 5/5. RLE Strength illopsoas, quadriceps, tibialis [...] knee reflex 2+. Dangelo's Sign negative. Coordination: Bpfyfv-of-tjze testing is normal Gait: Normal Review and [...] the brain with and without contrast at [facility] on 08/14/2023: No acute intracranial abnormality. No significant change in brain findings compared to the 05/15/2023 study. MRI of the cervical/thoracic/lumbar spine (ordered by [facility]) on 10/07/23: Degenerative changes at the cervical [...] the brain with and without contrast at [facility], on 05/15/23: no acute intracranial pathology or [...] whether dyskinesia present, unspecified whether manifestations fluctuate (CMS/[facility]) It is my impression the patient has [...] some improvement. She is now following with [facility] movement clinic and is now taking Sinemet CR along with amantadine with substantial improvement in her symptoms. PLAN: - Continue follow up with [facility] movement clinic as per their recommendations. - [...] on the right including pain and decreased meat and seafood manager strength. She admits to previous use of [...] pain management Service was performed by Giovanni JEROME in collaboration with Dr. Rao who is [...] 10:10 AM EST documented in this encounter [facility] 02-22-2024 History of Present illness Narrative [facility] - FOLLOW UP EVALUATION Md Rodrick Sams (Inactive) No address on file Dear Md Rodrick Sams (Inactive): I had the pleasure of [...] some every day Dry mouth - please metal pickling equipment operator some OTC spray to help Please come [...] that she is going to travel to [place] to see her friends, which prior to [...] or around: 11/21/24 Level of service : 82986 (40-54 min). Time spent 41 min on the day of service, which included preparing to see the patient, [id number] patient care, completing clinical documentation, obtaining and/or [...] of stress/struggling or is interrupted by their pipe finisher. documented in this encounter [facility] 02-22-2024 Note HNO ID: [id number] Author: MARIOLA MONTES PA-C Service: ? Author Type: Physician Paint Supervisor Type: Progress Notes Filed: 02/22/2024 16:46 Note Text: [facility] - FOLLOW UP EVALUATION Md Rodrick Sams (Inactive) No address on file Dear Md Rodrick Sams (Inactive): I had the pleasure of [...] some every day Dry mouth - please metal pickling equipment operator some OTC spray to help Please come [...] that she is going to travel to [place] to see her friends, which prior to [...] mild slowing, c) (more content not included)... [facility] 02-22-2024 Note HNO ID: [id number] Author: GA SHAW MA Service: ? Author Type: Calculation Reviewer Type: Progress Notes Filed: 02/22/2024 16:46 Note Text: Reason for WROTF Tablet to not get completed: Patient wishes to abort because of stress/struggling or is interrupted by their pipe finisher. [facility] 01-14-2024 Instructions Mariola Montes PA-C - [...] some every day Dry mouth - please metal pickling equipment operator some OTC spray to help Please come [...] or you can send a message through [employer]. You can also now schedule and select appointments through [employer]. Mariola Montes PA-C documented in this encounter [facility] 01-14-2024 History of Present illness Narrative [facility] - FOLLOW UP EVALUATION Md Rodrick Sams (Inactive) No address on file Dear Md Rodrick Sams (Inactive): I had the pleasure of [...] the amplitude decrements starting after the 1st [id number]-[id number] sequence. Arm Movements Right 1-Slight. a) the [...] some every day Dry mouth - please metal pickling equipment operator some OTC spray to help Please come back to see me February 21 at 3:00PM Interested in clinical research? Not currently Updated Movement Disorders Medication Schedule: Medications breakfast lunch bedtime ropinerole 0.25mg 1 azilect 1mg 1 sinemet CR 25/100mg 1 1 1 amantadine 100 mg 1 Return at or around: 02/14/24 Level of service : 59322 + 2 units 07666 ( > 55 min, [id number] for each 15 min > 40). Time spent 75 min on the day of service, which included preparing to see the patient, [id number] patient care, completing clinical documentation, obtaining and/or [...] Mariola Montes PA-C documented in this encounter [facility] 01-14-2024 Note HNO ID: [id number] Author: MARIOLA MONTES PA-C Service: ? Author Type: Physician Paint Supervisor Type: Progress Notes Filed: 01/14/2024 20:44 Note Text: [facility] - FOLLOW UP EVALUATION Md Rodrick Sams (Inactive) No address on file Dear Md Rodrick Sams (Inactive): I had the pleasure of [...] the amplitude decrement (more content not included)... [facility] 12-20-2023 Note Cardiology Clinic No te [...] without perforation, COPD (chronic obstructive pulmonary disease) ([facility]), Emphysema lung ([facility]), Hiatal hernia (05/2023), Hyperlipidemia, Hypertension, Parkinson disease ([facility]), Renal stones, TIA (transient ischemic attack) (06/2023), [...] rubs, No gallops. (more content not included)... [facility] 11-27-2023 Note Subjective Patient ID: [...] past 36 hour(s)). No follow-ups on file. [facility] 11-08-2023 Note Addended by: Madison VALENTE on: 11/08/2023 03:27 PM Modules accepted: Orders [facility] 11-08-2023 Miscellaneous Notes Addended by: DAVID [...] 24 and first week medication helped dyskinesia. [phone] 09/13/23 DARRYL w/Dr. Valente documented in this encounter [facility] 11-08-2023 Note Addended by: DULCE JONES on: 11/08/2023 02:48 PM Modules accepted: Orders [facility] 11-08-2023 Telephone encounter Note Spoke with Jaimee. Instructed her to increase the Amantadine to 100mg BID (to be taken with the first 2 daily doses of Sinemet). Jaimee verbalized understanding and is in agreement with POC. [facility] 11-08-2023 Telephone encounter Note Ok, if no side effects can she please increase to 100mg in morning and 100mg at noon? I will update the prescription. [facility] 11-08-2023 Telephone encounter Note Spoke with Jaimee. Reports that pt is experiencing right sided dyskinesia (arm/shoulder). Pt has been taking 100mg Amantadine daily. She initially had relief from the dyskinesia but now they have returned. [facility] 11-08-2023 Telephone encounter Note Jaimee (pt' granddaughter) called to report this week pt's back to experiencing jerking movement. Pt started Amantadine 100 mg week of October 24 and first week medication helped dyskinesia. [phone] 09/13/23 DARRYL w/Dr. Valente T [facility] 10-17-2023 Note HNO ID: [id number] Author: NEELIMA ORTEGA APRN.[employer] Service: ? Author Type: Nurse Practitioner Type: Progress Notes Filed: 10/17/2023 17:38 Note Text: [facility] - FOLLOW UP EVALUATION - TELEPHONE VISIT Md Rodrick Sams (Inactive) No address on file Dear Md Rodrick Sams (Inactive): I had the pleasure of [...] visit. Questionnaires: Assessment and Plan: Assessment Ms. Kahn is a right-handed 78 year old female [...] 100 mg 1 Level of service : 74681 (20-29 min). Time spent 25 min on [...] with any questions. Sincerely, Neelima Ortega APRN.[facility] 10-17-2023 Note Addended by: Gerardo ORTEGA on: 10/17/2023 05:29 PM Modules accepted: Orders T [facility] 10-17-2023 History of Present illness Narrative [facility] - FOLLOW UP EVALUATION - TELEPHONE VISIT Md Rodrick Sams (Inactive) No address on file Dear Md Rodrick Sams (Inactive): I had the pleasure of [...] 100 mg 1 Level of service : 88750 (20-29 min). Time spent 25 min on [...] Neelima Ortega APRN.[facility] documented in this encounter [facility] 10-17-2023 Miscellaneous Notes Addended by: NEELIMA [...] still having this issue. Kathie Calvillo (Daughter) [phone] (Home Phone) documented in this encounter [facility] 10-17-2023 Telephone encounter Note Spoke with pt. 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 She is agreeable to discussing in more detail at next office visit. [facility] 10-17-2023 Miscellaneous Notes Spoke with pt. [...] [facility] and would like a return call. 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 We can discuss at her next in person visit and show her the images then. Thanks, -David [facility] 10-17-2023 Telephone encounter Note Judith phoned for results of MRI done on 10/06. She does not use [facility] and would like a return call. [phone] [facility] 10-17-2023 Telephone encounter Note Dear Neelima, If she lives alone, I'd prefer the zonisamide. If she lives with someone who can monitor for the possible cognitive side effects of amantadine, I'd prefer amantadine. Thanks! -David [facility] 10-09-2023 Telephone encounter Note Patients daughter calling to say there was medication discussed during last OV for dyskinesia. They want to know what it was and if it can be prescribed because she's still having this issue. MaheshKathie hurt (Daughter) [phone] (Home Phone) [facility] 10-07-2023 History of Present illness Narrative [...] PATIENT PRESENTS WITH AN IMPLANTABLE OR ATTACHED MANAGER LINE: No RADIOLOGY DEPARTMENT: MR; Exam(s) Completed: Spine: Cervical spine, Thoracic spine, and Lumbar spine PERIPHERAL IV DATA: Not applicable SIGNED BY: RT Alec(Yajaira) October 07, 2023 5:53 PM documented in this encounter [facility] 10-07-2023 Note HNO ID: [id number] Author: MYA JENNINGS RT(R) Service: Radiology Author [...] PATIENT PRESENTS WITH AN IMPLANTABLE OR ATTACHED MANAGER LINE: No RADIOLOGY DEPARTMENT: MR; Exam(s) Completed: Spine: Cervical spine, Thoracic spine, and Lumbar spine PERIPHERAL IV DATA: Not applicable SIGNED BY: RT Alec(Yajaira) October 07, 2023 5:53 PM [facility] 09-26-2023 Note Subjective Patient ID: Judiht Khan is a 78 y.o. female who [...] past 36 hour(s)). No follow-ups on file. [facility] 09-26-2023 Note Subjective Patient ID: Judith Khan is a 78 y.o. female who presents for Post-op (Judith is here today for a post op visit for an incisional hernia, s/p 09/17/23 DaVinci incisional hernia repair. ). HPI Ms. Khna is a 78 year old female presenting [...] up, unless patient desires Gamaliel Jarvis, MS3 [facility] 09/26/23 [facility] 09-18-2023 Note 09/18/23 1216 Home [...] $ Pulse Oximetry Multiple (home oxygen eval) [facility] 09-18-2023 Note ---- Attestation signed by Verena Sheehan MD at 09/20/2023 10:36 AM Attending Physician Statement I have discussed the case, including pertinent history and exam findings with Dr. Serrano, surgical aide and have personally seen the patient. I agree with the assessment, plan and orders as documented. [phone] pager [phone] phone ---- [facility] General Surgery DAILY PROGRESS NOTE Subjective Overnight patient had R sided weakness but patient has weakness at baseline. Evaluated by PA. Patient seen at bedside today. Says she's doing fine . Endorses adequate urination but denies having a BM since admission and is not passing gas. Denies fever/chills/N/V. Reports abdominal pain /10 in severity and mild SOB. Says she [...] Resident, PGY-3 I can be reached via [employer] 6a-6p [facility] 09-18-2023 Note Physical Therapy Physical [...] Level of Function Prior Function Level of [place]: Independent with ADLs and functional transfers, Needs assistance with homemaking Prior Functional Mobility: Independent with rolling walker Receives Help From: Family ADL Assistance: Independent (assist for socks) Homemaking Assistance: Needs assistance Driving: Total Prior Function Comments: Currently getting [facility] therapies in [place]: FOOD SAFETY COORDINATOR/OT/PT Vision Basic Assessment Vision - Basic Assessment [...] Distant supervision Static (more content not included)... [facility] 09-18-2023 Note Occupational Therapy Occupational [...] Level of Function Prior Function Level of [place]: Independent with ADLs and functional transfers, Needs [...] Eating meals?: None (Independent) Total Score OT [facility]: 21 Assessment/Plan OT Assessment OT Impairments: Decreased [...] Therapy) Active Probl (more content not included)... [facility] 09-18-2023 Note 09/18/23 1001 Admission Assessment Questions Verify insurance with patient Yes Do you understand medical disease or what brought you into the hospital? Yes Who is your current PCP? Rodrick Sams MD Can I schedule a follow [...] Discharge? No Does the patient have a medical case manager assigned to them through their insurance? No [...] to send link and activate MyChart? Yes [facility] 09-18-2023 Note [facility] General Surgery DAILY PROGRESS NOTE Subjective [...] lactated Ringer's, 30 mL/hr, Last Rate: Stopped (09/17/231436) Imaging: ECG 12 lead Sinus tachycardia Left [...] David Conner MS3 General Surgery Resident, PGY- [phone] I can be reached via [employer] 6a6s [facility] 09-17-2023 Note Patient: Judith stoner Procedure Summary Date: 09/17/23 Room / Location: [facility] OPERATING ROOM 13 / [facility] Operating Room Anesthesia Start: 1039 [...] slow to emerge. No notable events documented. [facility] 09-17-2023 Note Patient: Judith stoner Procedure Summary Date: 09/17/23 Room / Location: [facility] OPERATING ROOM 13 / [facility] Operating Room Anesthesia Start: 1039 [...] observation Transport: uneventful Patient condition is: stable [facility] 09-17-2023 Note Airway Date/Time: 09/17/2023 10:53 AM Urgency: elective General Information and Staff Patient location during procedure: OR Anesthesiologist: Jon Sunshine MD Resident/LOAD MIXER/CAA: ABDIFATAH Patton Performed: resident/LOAD MIXER/CAA Indications and Patient Condition Indications for airway [...] 1 Number of other approaches attempted: 0 [facility] 09-17-2023 Note Patient: Judith stoner Procedure Information Date/Time: 09/17/23 1100 Procedure: REPAIR, HERNIA, INCISIONAL, DAVINCI - DaVinci Location: [facility] OPERATING ROOM 13 / [facility] Operating Room Surgeons: Verena Sheehan [...] Plan discussed with CAA. Additional Equipment Requests [facility] 09-13-2023 Instructions David Valente MD [...] > left sensory loss. Continue PT, OT, FOOD SAFETY COORDINATOR Follow up in 1 month with [facility]. Patient's perception of importance for healthcare provider to let them know of research trials for which they may be eligible? Not at all important Return at or around: 10/13/23 If there are any concerns before your next visit, please call or you can send a message through [employer]. You can also now schedule and select appointments through [employer]. David Valente MD documented in this encounter [facility] 09-13-2023 History of Present illness Narrative [...] and was started on sinemet, in the 90s. Then, end of 2022, the sinemet dose [...] Row Office Visit from 09/13/2023 in [facility] T Score 39.8 Global [...] Suprapatellar present. Crossed adductor absent. Coordination Right: Wdpm-wv-oysl normal.Left: Ppyb-ov-fvgv normal. See UPDRS. Gait Casual gait: Hesitant [...] Spine, concern for right sided [facility] radiculopathy [facility] (MRIs ordered at [facility], with radiology to administer anxiolytics) Neuropathy labwork In future, consider EMG right leg to work up right > left sensory loss. Continue PT, OT, FOOD SAFETY COORDINATOR Follow up in 1 month with [facility]. Patient's perception of importance for healthcare provider to let them know of research trials for which they may be eligible? Not at all important Updated Parkinson's Medication Schedule: Medications breakfast lunch bedtime ropinerole 0.25mg 1 azilect 1mg 1 sinemet 25/100mg 1 1 1 Level of service : 00805 + 1 units 10856 ( > 75 min, [id number] for each 15 min > 60 min). Time spent 80 min on the day of service, which included preparing to see the patient, ihwg-bu-jdwh patient care, completing clinical documentation, obtaining and/or [...] David Valente MD documented in this encounter [facility] 09-13-2023 Note HNO ID: [id number] Author: DAVID VALENTE MD Service: ? Author [...] Row Office Visit from 09/13/2023 in [facility] T Score 39.8 Global [...] 5pm.. rOPINIRole (REQUIP (more content not included)... [facility] 09-12-[address] Haresh nicole the Pantoprazole. [facility] 08-27-2023 Note Pre op Cardiovascula r risk stratification RCRI: 1 points Class II Risk 6.0 % 30-day risk of , [place], or cardiac arrest From a cardiology perspective pt may proceed with planned hernia surgery, she is low risk for a moderate- high risk abdominal surgery. Please monitor hemodynamics and prevent any major fluid shifts please. Mila ANTONIO CT Cardiology Available 7a-5pm via [employer] Chat Pager [phone] 05/2022 Abnormal stress with EKG changes but no perfusion defects as per report. No cardiac complaints TTE 06/01/23 v [facility] 08-22-2023 Note Subjective Patient ID: [...] time. (ESOPHAGOGASTRODUODENOSCOPY) Operative Note Date: 08/13/2023 Location: [facility] OR Name: Judith Khan, : 1945, Diagnosis Pre-op Diagnosis * Hiatal hernia [K44.9] Post-op Diagnosis * Chronic gastric ulcer without hemorrhage and without perforation [K25.7] Procedures EGD (ESOPHAGOGASTRODUODENOSCOPY) 32183 - [place] ESOPHAGOGASTRODUODENOSCOPY [facility] Surgeons * Verena Sheehan - Primary Procedure Summary Anesthesia: Monitor Anesthesia Care ASA: III Estimated Blood Loss: Minimal Total IV Fluids: 500 mL Drains: * None in log * Staff: Hand Tufter: Jian Kat RN Scrub Person: Eva Zambrano [...] NOTE Patient: Judith Khan : 1945 Facility: [facility] Referring/PCP: Rodrick Sams MD Procedure: Esophagogastroduodenoscopy --diagnostic Date: 08/13/2023 [...] 1. -Follow up with me. 2. -PPIs [phone] pager [phone] Assessment/Plan Incisional hernia Gastric ulcer Robotic incisional hernia repair with mesh Cardiac clearance PPIs No diagnosis found. No orders of the defined types were placed in this encounter. No results found for this or any previous visit (from the past 36 hour(s)). No follow-ups on file. [facility] 08-13-2023 Note Patient: Judith stoner Procedure Summary Date: 08/13/23 Room / Location: [facility] OPERATING ROOM 01 / [facility] Operating Room Anesthesia Start: 731 Anesthesia Stop: 08 Procedure: EGD (ESOPHAGOGASTRODUODENOSCOPY) Diagnosis: Chronic gastric ulcer [...] per anesthesia protocol. No notable events documented. [facility] 08-13-2023 Note [facility] General Surgery HISTORY AND PHYSICAL Reason for Admission: EGD History of Present Illness: Judith Khan is a 78 y.o. female with a hiatal hernia. Here today for elective EGD. No changes since prior exam no new acute concerns. Past Medical History: Diagnosis Date COPD (chronic obstructive pulmonary disease) (CMS/HCC) Emphysema lung ([facility]/HCC) HISTORY OF Hiatal hernia 05/2023 Hyperlipidemia Hypertension [...] PROTIME Imaging: XR chest 1 view Narrative: [facility] Department of Radiology [address] [place] [id number] Patient Name: JUDITH KHAN : 1945 Sex: F Age: Race: White^White Pt. Location: [id number] Patient Status: I Ordered Date: 08/15/2017 7:05:00 AM Completed Date: 08/15/2017 07:54 AM Requesting Provider: JOSH PALMER Attending Provider: ALEXANDER OLSON Report Copy To: Signs & Symptoms: O2 Desaturation History: Patient history not available Comments: R/O Effusion Exam: PORTABLE CHEST 1 VIEW PORTABLE CHEST 1 VIEW 08/15/2017 7:54 AM EST SIGNS AND SYMPTOMS: O2 Desaturation TECHNOLOGIST COMMENTS: SOB Q (more content not included)... [facility] 08-13-2023 Note Patient: Judith stoner Procedure Information Date/Time: 08/13/23729 Procedure: EGD (ESOPHAGOGASTRODUODENOSCOPY) Location: [facility] OPERATING ROOM 01 / [facility] Operating Room Surgeons: Verena Sheehan [...] with attending and resident. 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 Do not wear perfume, make-up, nail lebanese, or lotions on the day of your [...] need to make any changes, please call [phone]. Notify your surgeon if you develop any illness such as a cold, cough, fever, sore throat or vomiting between now and your surgery. Thank you for entrusting us with your care. [facility] Surgical Services Team [facility] 08-07-2023 Note Subjective Patient ID: [...] past 36 hour(s)). No follow-ups on file. [facility] 07-16-2023 Hospital Discharge instructions Patient [...] Consider working with a physical therapist or monkey trainer who can develop an exercise plan to help you gain muscle strength. General instructions Take pfgw-wnx-kxjaqfj and prescription medicines only as told by [...] provider. Document Revised: 04/30/2022 Document Reviewed: 04/30/2022 [employer] Patient Education 2022 Urge. Follow Up Care 07/16/2023 11:34:57 With:Rodrick Sams Address: [address] [place] [address]- Business (1) When:07/19/2023 15:32:04 [facility] 07-16-2023 Evaluation + Plan note Extrac ej from: Title:ED Note Author:Leighton Fernandes PA-C te:07/16/23 Weakness (R53.1: Weakness) Diagnostic Tests Pending * Urine Culture 07/16/23 [facility]01-28-2024 NoteAdmission and Discharge Information Admitting Physician - [...] JOANNA Kauffman Within 1 to 2 weeks [place] [address]- Additional Instructions: Patient Education Weakness, Mlvh-xu-Zbkr Urinary Tract Infection, [facility] HospitalComment on above:Result Comment: Electronically Signed By: MATTHEW HERRERA, Haile\.br\Date and Time Signed: 07/08/23 16:[id number] NoteHypertension is stable and well controlled Continue all meds as prescribed- norvasc, lisinopril- hydrochlorothiazide, metoprololUnBrown [facility]01-26-2024 NoteHiatal hernia with compression on Lt atrium noted on TTE Referral to general surgery orderedUnBrown Memorial Hospital01-26-2024 NotePatient here for 6 mo follow up fatigue, hypertension, and hyperlipidemia. Metoprolol was put on hold at last apt in Jan 2023 to see if fatigue improved. A few weeks later she was admitted to [facility] for chest pain. Had another echo in May 2023, which showed hiatal hernia. Daughter states was admitted to [facility] recently for TIA symptoms and daughter states she was treated for UTI. She's still not taking metoprolol and feels less tired without it. She denies chest pain, SOB, lightheadedness/syncope, and palpitations. Review of Systems Constitutional: Positive for malaise/fatigue (improving). Musculoskeletal: Positive for arthritis, back pain and joint pain. Neurological: Positive for tremors. All other systems reviewed and are negative.[facility] 07-06-2023 NoteUTP CARDIOLOGY PROGRESS NOTE HPI: Judith Khan is a 78 y.o. female here for review echocardiogram Patient here for 6 mo follow up fatigue, hypertension, and hyperlipidemia. Metoprolol was put on hold at last apt in Jan 2023 to see if fatigue improved. A few weeks later she was admitted to [facility] for chest pain. Had another echo in May 2023, which showed hiatal hernia. Daughter states was admitted to [facility] recently for TIA symptoms and daughter states [...] Plt Count 355 (150-450) 10^3/uL Emergency Department [id number] [facility] 5 Patient name: JUDITH KHAN MPV 11.2 (9.5-13.5) fL Neut % (Auto) 22.9 L (43.0-75.0) % Lymph % (Auto) 55.8 (20.5-60.0) % [place] % (Auto) 13.5 H (1.7-12.0) % Eos % (Auto) 6.4 (0.9-7.0) % Baso % (Auto) 1.3 (0.2-2.0) % Neut # (Auto) 1.9 (1.4-6.5) 10^3/uL Lymph # (Auto) 4.6 H (1.2-3.8) 10^3/uL [place] # (Auto) 1.1 H (0.3-0.8) 10^3/uL Eos [...] Amer) >60 (>=60) Est (more content not included)...[facility]01-20-2024 NoteMicrobiology PROCEDURE: Blood Culture Charcoal [...] test was performed at: [facility], [address] [place] [address], [address] [place] [address], Sfnijt[address] Thomas StreetComment on above:Performed By: #### [id number] ####[place] [place], [place] [phone] NoteMicrobiology PROCEDURE: Blood Culture Charcoal [R1] SOURCE: Blood BODY SITE: Arm R COLLECTED DATE/TIME: 06/23/2023 02:56 EST RECEIVED DATE/TIME: 06/23/2023 05:50 EST START DATE/TIME: 06/23/2023 05:50 EST FREE TEXT SOURCE: rt nathaniel Sidhu M.D., Augie Sidhu M.D., Augie Charlton FINAL REPORTS Final Report [] Verified Date/Time: 06/30/2023 07:00 EST No growth at 7 days. Performing Locations R1: [facility] performed at[facility], [address] [place] [address], [address] [place] [address], [address] [place], [place] [address]Comment on above:Performed By: #### [id number], [id number] #### [facility] [address] [place] [address] [phone] NoteChief Complaint weakness Reason for Consultation Right [...] says she had an open MRI in [place] within the past few months which she [...] but reportedly she has MRI images in [place] within the past few months that did [...] List/Past Medical History On (more content not included)...[facility] on above: Result Comment: Electronically Signed By: Tony Fuentes DO\Date and Time Signed: 06/24/23 09:29 [id number] Hospital Discharge instructions Patient Education 06/23/2023 16:31:59 Weakness, Ynui-da-Dzfp Weakness Weakness is a lack of strength. [...] about working with a physical therapist or monkey trainer to help you get stronger. General instructions Take jubq-rzl-jfcvvvb and prescription medicines only as told by [...] provider. Document Revised: 04/30/2022 Document Reviewed: 04/30/2022 [employer] Patient Education 2022 Urge. 06/23/2023 16:31:55 Urinary Tract Infection, Adult Urinary [...] Treatment for this condition includes: Antibiotic medicine. Grsz-wcl-hhgvzym medicines to treat discomfort. Drinking enough water [...] Follow these instructions at home: Medicines Take amrn-tjs-awpwzmg and prescription medicines only as told by [...] provider. Document Revised: 01/07/2021 Document Reviewed: 01/07/2021 [employer] Patient Education 2022 Urge. Follow Up Care 06/23/2023 01:35:45 With:Dani HERRERA, JOANNA Kauffman Address: [place] [address] [address] [id number]- When:1 to 2 weeks [facility]01-13-2024 NoteChief Complaint states went to the bathroom [...] out of bed to go the bathroom. [place] weak all over and just felt like [...] 01:55:00) Lymph Auto: 15.1 % (06/23/23 01:55:00) [place] Auto: 11.3 % (06/23/23 01:55:00) Eos Auto: 0.8 % (06/23/23 01:55:00) Basophil Auto: 0.4 % (06/23/23 01:55:00) Neutro Absolute: 10.5 E9/L High (06/23/23 01:55:00) Lymph Absolute: 2.2 E9/L (06/23/23 01:55:00) [place] Absolute: 1.6 E9/L High (06/23/23 01:55:00) Eos [...] Magnesium: 1.8 mg/dL (06/23/23 (more content not included)...[facility]Comment on above:Result Comment: Electronically Signed By: Haile CASTRO MD\.andreia\Date and Time Signed: 06/23/23 15:[id number] NoteCRM entered the room to discuss dc planning. PCP, DME and insurance discussed. Patient is alert andinvolved in plan of care. Contact information provided and whiteboard updated. PT rec OPPT, pt is agreeable. Medicare Rights form discussed. Copy provided. Pt's family will transport. Ant dc 06/23 or 06/24. CRM to follow.[facility] DaytonComment on above:Result Comment: Electronically Signed By: Haydee Melendez\Date and Time Signed: 06/23/23 14:05 [id number] Evaluation + Plan noteExtracted from: Title:Consult Note [...] but reportedly she has MRI images in [place] within the past few months that did [...] just had an MRI in Dec at [facility]. Consult Neurology PT Eval ordered 2. [...] Blood Culture Charcoal CBC w/ Auto Diff [place] Stroke Scale Communication Order Physician to Nursing Continuous Pulse Oximetry CT Head or Brain w/o Contrast ECG 12 Lead Adult ED Cardiac Monitoring ED Physician consult Hospitalist for continued care eGFR Hepatic Function Panel Lactic Acid Magnesium Level NPO Diet Oxygen Therapy PT & PTT Rapid COVID Antigen [place] Routine Capillary Glucose POC Saline Lock Insert Stroke Quality Measures Troponin 0 Hr. Troponin 3 Hr. Troponin 6 Hr. Troponin 9 Hr. TSH With T4fr Reflex UA With Cult Reflex Urine Culture Vital Signs XR Chest Single View Diagnostic Tests Pending * Blood Culture Charcoal 06/23/23 * Blood Culture Charcoal 06/23/23 * Urine Culture 06/23/23 [facility]01-13-2024 NotePT Evaluation done this date. Pt. with on AM-PAC this date. She feels she is at her baseline at this time, Recommend she uses her FWW at home as needed. She may benefit from outpatient PT for her Parkinson's. No further acute PT needs.[facility] 01-12-2023 NoteContinue statinUnBrown [facility] Hospital08-04-2023 Note Hypertension is elevated in office most likely r/t white coat syndrome States b/p at home is typically 120's/70'[facility] 01-12-2023 NoteWill have pt hold metoprolol and see if her fatigue improves Continue to monitor b/p at home and call office for b/p increase greater than 130/80 or for any concerns.[facility]08-04-2023 Note Patient here for 6 [...] tremors. All other systems reviewed and are negative.[facility] 01-12-2023 NoteUTP CARDIOLOGY PROGRESS NOTE [...] statin RTC 3-6 months or earlier if neededAdena Fayette Medical CenterEvaluation noteNo assessment information availableShelby Memorial [facility]tr Work Phone: Evaluation note* Diagnosis [...] changes Memory loss [facility] Diagnosis Spinal stenosis of cervical region Spinal stenosis in cervical region [facility]* Diagnosis Abnormal posture documented in this [facility]* Diagnosis Spinal stenosis of lumbar region with neurogenic claudication Spinal stenosis, lumbar region, with neurogenic claudication documented in this encounter [facility]* Diagnosis Parkinson's disease with dyskinesia and fluctuating manifestations (HCC)- Primary [facility] encounter [facility]* Diagnosis Parkinson's disease with dyskinesia and fluctuating manifestations (HCC)- Primary documented in this encounter [facility]* Diagnosis Parkinson's disease with dyskinesia and fluctuating manifestations (HCC) documented in this encounter [facility]* Diagnosis Parkinson's disease with dyskinesia and fluctuating manifestations (HCC) documented in this encounter [facility]* Diagnosis Parkinson's disease with dyskinesia and fluctuating manifestations (HCC)- Primary documented in this encounter [facility]* Diagnosis Parkinson's disease with dyskinesia and fluctuating manifestations (HCC)- Primary documented in this encounter [facility]* Diagnosis Parkinson's disease with dyskinesia and fluctuating manifestations (HCC) documented in this encounter [facility]* Diagnosis Parkinson's disease, unspecified whether dyskinesia [...] of cerebral infarction documented in this encounter [facility]* Diagnosis Parkinson's disease, unspecified whether dyskinesia present, unspecified whether manifestations fluctuate (CMS/HCC)- Primary RLS (restless legs syndrome) Restless legs syndrome (RLS) Cerebral infarction, chronic Transient ischemic attack (TIA), and cerebral infarction without residual deficits Other chronic pain Carpal tunnel syndrome of right wrist documented in this encounter [facility] note* Diagnosis Parkinson's disease with dyskinesia and fluctuating manifestations (HCC)- Primary Anxiety disorder due to known physiological condition Anxiety state, unspecified Hypophonia with hoarseness documented in this encounter [facility] course Narrative No data available for this section [facility] No data available for this section [facility] Summary Purpose Family History No Family [...] Referral Specialty Diagnoses / Procedures Referred By Contac t Referred To Contact Diagnoses Parkinson's disease with dyskinesia and fluctuating manifestations (HCC) Procedures PROVIDER ORDERED FOLLOW UP OFFICE/OUTPATIENT [facility] 60 MINUTES Mariola Montes PA-C [address] [place] [address] Referral ID Status Reason Start Date Expiration Date Visits Requested Visits Authorized [id number] Authorized PCP Requested Referral 02/14/2024 01/13/2025 1 1 Specialty Diagnoses / Procedures Referred By Contac t Referred To Contact Diagnoses Parkinson's disease, unspecified whether dyskinesia present, unspecified whether manifestations fluctuate (HCC) Procedures PROVIDER ORDERED FOLLOW UP OFFICE/OUTPATIENT [facility] 60 MINUTES David Valente MD [address] [place] [address] Referral ID Status Reason Start Date Expiration Date Visits Requested Visits Authorized [id number] Authorized PCP Requested Referral 10/13/2023 09/12/2024 1 1 Specialty Diagnoses / Procedures Referred By Contac t Referred To Contact MR IMAGING Diagnoses Spinal stenosis of lumbar region with neurogenic claudication Procedures MRI LUMBAR SPINE WO IVCON MRI SPINAL CANAL LUMBAR W/O CONTRAST MATERIAL David Valente MD [address] [place] [address] Mr Imaging [place] [address] Referral ID Status Reason Start Date Expiration Date Visits Requested Visits Authorized [id number] Authorized Auto-Generat ed Referral 09/13/2023 10/12/2024 1 1 Specialty Diagnoses / Procedures Referred By Contac t Referred To Contact MR IMAGING Diagnoses Abnormal posture Procedures MRI THORACIC SPINE WO IVCON MRI SPINAL CANAL THORACIC W/O CONTRAST David Andrea MD [address] [place] [address] Mr Imaging [place] [address] Referral ID Status Reason Start Date Expiration Date Visits Requested Visits Authorized [id number] Authorized Auto-Generat ed Referral 09/13/2023 10/12/2024 1 1 Specialty Diagnoses / Procedures Referred By Contac t Referred To Contact MR IMAGING Diagnoses Spinal stenosis of cervical region Procedures MRI CERVICAL SPINE WO IVCON MRI SPINAL CANAL CERVICAL W/O CONTRAST David Andrea MD [address] [place] [address] Mr Imaging [place] [address] Referral ID Status Reason Start Date Expiration Date Visits Requested Visits Authorized [id number] Authorized Auto-Generat ed Referral 09/13/2023 10/12/2024 1 1 Additional Source Comments INFORMATION SOURCE (unrecogn ized section and content) DATE CREATED AUTHOR 11/30/2017 [facility] DATE CREATED AUTHOR AUTHOR'S ORGANIZ ATION 10/13/2022 [facility] DATE CREATED AUTHOR AUTHOR'S ORGANIZ ATION 07/19/2023 [facility] DATE CREATED AUTHOR AUTHOR'S ORGANIZ ATION 08/21/2023 [facility] DATE CREATED AUTHOR AUTHOR'S ORGANIZ ATION 10/19/2023 [facility] DATE CREATED AUTHOR AUTHOR'S ORGANIZ ATION 12/02/2023 [facility] DATE CREATED AUTHOR AUTHOR'S ORGANIZ ATION 12/26/2023 [facility] DATE CREATED AUTHOR AUTHOR'S ORGANIZ ATION 05/24/2024 [facility] DATE CREATED AUTHOR AUTHOR'S ORGANIZ ATION 07/18/2024 [facility] Care Teams (unrecognized sec tion and content) Team Status: Active Member Role Status Dates Rodrick Sams MD Primary Care Provider Active Team Status: Inactive Member Role Status Dates Rodrick Sams MD Primary Care Provider Active Giovanni Gill COMMUNITY OUTREACH DIRECTOR-C Attending Provider Active Primary Care Nurse Relationship Specialty Start Date End Date Rodrick Sams Md PCP - General Family Medicine 03/23/20 Rodrick Sams MD Physician Family Medicine 02/20/20 Primary Care Nurse Relationship Specialty Start Date End Date Rodrick Sams Md PCP - General Family Medicine 03/23/20 Rodrick Sams MD Physician Family Medicine 02/20/20 Primary Care Nurse Relationship Specialty Start Date End Date Rodrick Sams Md PCP - General Family Medicine 03/23/20 Rodrick Sams MD Physician Family Medicine 02/20/20 Primary Care Nurse Relationship Specialty Start Date End Date Rodrick Sams Md PCP - General Family Medicine 03/23/20 Rodrick Sams MD Physician Family Medicine 02/20/20 Primary Care Nurse Relationship Specialty Start Date End Date Rodrick Sams Md PCP - General Family Medicine 03/23/20 Rodrick Sams MD Physician Family Medicine 02/20/20 Primary Care Nurse Relationship Specialty Start Date End Date Rodrick Sams Md PCP - General Family Medicine 03/23/20 Rodrick Sams MD Physician Family Medicine 02/20/20 Primary Care Nurse Relationship Specialty Start Date End Date Rodrick Sams Md PCP - General Family Medicine 03/23/20 Rodrick Sams MD Physician Family Medicine 02/20/20 Primary Care Nurse Relationship Specialty Start Date End Date Rodrick Sams Md PCP - General Family Medicine 03/23/20 Rodrick Sams MD Physician Family Medicine 02/20/20 Primary Care Nurse Relationship Specialty Start Date End Date Rodrick Sams Md PCP - General Family Medicine 03/23/20 Rodrick Sams MD Physician Family Medicine 02/20/20 Primary Care Nurse Relationship Specialty Start Date End Date Rodrick Sams Md PCP - General Family Medicine 03/23/20 Rodrick Sams MD Physician Family Medicine 02/20/20 Primary Care Nurse Relationship Specialty Start Date End Date Rodrick Sams Md PCP - General Family Medicine 03/23/20 Rodrick Sams MD Physician Family Medicine 02/20/20 Primary Care Nurse Relationship Specialty Start Date End Date Rodrick Sams MD [address] [place] [address] PCP - General Family Medicine 08/15/23 Primary Care Nurse Relationship Specialty Start Date End Date Rodrick Sams MD [address] [place] [address] PCP - General Family Medicine 08/15/23 Primary Care Nurse Relationship Specialty Start Date End Date Rodrick Sams MD [address] [place] [address] PCP - General Family Medicine 08/15/23 Primary Care Nurse Relationship Specialty Start Date End Date Rodrick Sams Md PCP - General Family Medicine 03/23/20 Rodrick Sams MD Physician Family Medicine 02/20/20 Goals [...] or prosecute any alcohol or drug abuse patient.[facility] the event this information is protected by the Federal Confidentiality of Alcohol and Drug Abuse Patient Records regulations: The Federal rules restrict any use of the information to criminally investigate or prosecute any alcohol or drug abuse patient.[facility] the event this information is protected by the Federal Confidentiality of Alcohol and Drug Abuse Patient Records regulations: The Federal rules restrict any use of the information to criminally investigate or prosecute any alcohol or drug abuse patient.[facility] the event this information is protected by the Federal Confidentiality of Alcohol and Drug Abuse Patient Records regulations: The Federal rules restrict any use of the information to criminally investigate or prosecute any alcohol or drug abuse patient.[facility] the event this information is protected by the Federal Confidentiality of Alcohol and Drug Abuse Patient Records regulations: The Federal rules restrict any use of the information to criminally investigate or prosecute any alcohol or drug abuse patient.[facility] the event this information is protected by the Federal Confidentiality of Alcohol and Drug Abuse Patient Records regulations: The Federal rules restrict any use of the information to criminally investigate or prosecute any alcohol or drug abuse patient.[facility] the event this information is protected by the Federal Confidentiality of Alcohol and Drug Abuse Patient Records regulations: The Federal rules restrict any use of the information to criminally investigate or prosecute any alcohol or drug abuse patient.[facility] the event this information is protected by the Federal Confidentiality of Alcohol and Drug Abuse Patient Records regulations: The Federal rules restrict any use of the information to criminally investigate or prosecute any alcohol or drug abuse patient.[facility] the event this information is protected by the Federal Confidentiality of Alcohol and Drug Abuse Patient Records regulations: The Federal rules restrict any use of the information to criminally investigate or prosecute any alcohol or drug abuse patient.[facility] the event this information is protected by the Federal Confidentiality of Alcohol and Drug Abuse Patient Records regulations: The Federal rules restrict any use of the information to criminally investigate or prosecute any alcohol or drug abuse patient.[facility] the event this information is protected by the Federal Confidentiality of Alcohol and Drug Abuse Patient Records regulations: The Federal rules restrict any use of the information to criminally investigate or prosecute any alcohol or drug abuse patient.[facility] the event this information is protected by the Federal Confidentiality of Alcohol and Drug Abuse Patient Records regulations: The Federal rules restrict any use of the information to criminally investigate or prosecute any alcohol or drug abuse patient.[facility] the event this information is protected by the Federal Confidentiality of Alcohol and Drug Abuse Patient Records regulations: The Federal rules restrict any use of the information to criminally investigate or prosecute any alcohol or drug abuse patient.[facility] Reason for Visit (unrecogniz ed section and content) Reason Comments New Patient Reason Comments Radiology MRI Specialty Diagnoses / Procedures Referred By Contac t Referred To Contact MR IMAGING Diagnoses Spinal stenosis of cervical region Procedures MRI CERVICAL SPINE WO IVCON MRI SPINAL CANAL CERVICAL W/O CONTRAST David Andrea MD [address] [place], [place] [address] [place] [address] [place] [address] Referral ID Status Reason Start Date Expiration Date V isits Requested Visits Authorized [id number] Closed Auto-Generate d Referral 09/13/2023 10/12/2024 1 1 Specialty Diagnoses / Procedures Referred By Contac t Referred To Contact MR IMAGING Diagnoses Abnormal posture Procedures MRI THORACIC SPINE WO IVCON MRI SPINAL CANAL THORACIC W/O CONTRAST MATRL David Valente MD [address] [place] [address] Mr Imaging [place] [address] Referral ID Status Reason Start Date Expiration Date V isits Requested Visits Authorized [id number] Closed Auto-Generate d Referral 09/13/2023 10/12/2024 1 1 Specialty Diagnoses / Procedures Referred By Contac t Referred To Contact MR IMAGING Diagnoses Spinal stenosis of lumbar region with neurogenic claudication Procedures MRI LUMBAR SPINE WO IVCON MRI SPINAL CANAL LUMBAR W/O CONTRAST MATERIAL David Valente MD [address] [place] [address] Mr Imaging [place] [address] Referral ID Status Reason Start Date Expiration Date V isits Requested Visits Authorized [id number] Closed Auto-Generate d Referral 09/13/2023 10/12/2024 1 1 Reason Comments Results MRI Reason Comments Parkinson's Disease Specialty Diagnoses / Procedures Referred By Contac t Referred To Contact Diagnoses Parkinson's disease, unspecified whether dyskinesia present, unspecified whether manifestations fluctuate (HCC) Procedures PROVIDER ORDERED FOLLOW UP OFFICE/OUTPATIENT [facility] 60 MINUTES David Valente MD [address] [place] [address] Referral ID Status Reason Start Date Expiration Date Visits Requested Visits Authorized [id number] Authorized PCP Requested Referral 10/13/2023 09/12/2024 1 1 Reason Comments Med Change Request Reason Comments Medication Update/Amantadine Reason Comments Established Patient Follow Up Reason Comments Established Patient Follow up Specialty Diagnoses / Procedures Referred By Contac t Referred To Contact Diagnoses Parkinson's disease with dyskinesia and fluctuating manifestations (HCC) Procedures PROVIDER ORDERED FOLLOW UP OFFICE/OUTPATIENT [facility] 60 MINUTES Mariola Montes PA-C [address] [place] [address] Referral ID Status Reason Start Date Expiration Date V isits Requested Visits Authorized [id number] Closed PCP Requested Referral 02/14/2024 01/13/2025 1 1 Reason Comments Refill Request Reason Comments Parkinson's Disease Insomnia Carpal Tunnel Reason Comments Parkinson's Disease Restless Legs Carpal Tunnel R History of Stroke Reason Comments Established Patient Follow up declined a ll tablets Specialty Diagnoses / Procedures Referred By Reyna t Referred To [facility] Diagnoses Parkinson's disease with dyskinesia and fluctuating manifestations (HCC) Procedures PROVIDER ORDERED FOLLOW UP OFFICE/OUTPATIENT [facility] 60 MINUTES Mariola Montes PA-C [address] [place] [address] [address] [place] [address] Referral ID Status Reason Start Date Expiration Date V isits Requested Visits Authorized [id number] Closed PCP Requested Referral 07/15/2024 02/21/2025 1 1 FOR RECORDS PERTAINING TO PATIENTS WHO ARE [...] BE BASED ON THE PRIMARY CLINICAL RECORDS. [facility] [employer] [facility]. provides no warranty or guarantee of the accuracy or completeness of information in this document.
[2024-07-22 12:11] LABS: Hematocrit 42.8 % (36.0-48.0); Hemoglobin 13.9 g/dL (12.0-16.0); Mean Corpuscular HGB Conc 32.5 g/dL (29.9-35.2); Mean Corpuscular Hemoglobin 31.2 pg (26.7-34.0); Mean Corpuscular Volume 96.2 fL (81.0-99.0); Mean Platelet Volume 10.6 fL (9.5-13.5); Platelet Count 307 10^3/uL (150-450); Red Blood Count 4.45 10^6/uL (4.20-5.40); Red Cell Distribution Width 15.1 % (11.0-15.0); White Blood Count 7.2 10^3/uL (4.0-11.0)
[2024-07-22 12:31] LABS: Band Neutrophils Absolute 0.1 10^3/uL (0.0-0.3); Basophils Abs Manual 0.21 10^3/uL (0.00-0.10); Eosinophils Absolute Manual 0.43 10^3/uL (0.00-0.70); Lymphocytes Absolute Manual 2.59 10^3/uL (1.20-3.80); Segmented Neut Absolute Manual 3.16 10^3/uL (1.4-6.5)
[2024-07-22 12:32] LABS: Anisocytosis 1+
[2024-07-22 14:05] LABS: Free T4 0.92 ng/dL (0.76-1.46)
[2024-07-22 14:08] LABS: Alanine Aminotransferase 16 U/L (14-59); Albumin Globulin Ratio 1.3; Albumin Level 3.8 g/dL (3.4-5.0); Alkaline Phosphatase 127 U/L (46-116); Anion Gap 13.2; Aspartate Amino Transferase 14 U/L (15-37); BUN Creatinine Ratio 24.4; Bilirubin Total 0.3 mg/dL (0.2-1.0); Calcium 10.4 mg/dL (8.5-10.1); Chloride 105 mmol/L (98-107); Estimated GFR (African America 51 (>=60 mL/min/1.73m^2); Estimated GFR (Non-African Ame 42 (>=60 mL/min/1.73m^2); Glucose 96 mg/dL (74-106); Potassium 4.2 mmol/L (3.5-5.1); Sodium 143 mmol/L (136-145); Total Protein 6.8 g/dL (6.4-8.2); Troponin I High Sensitivity 14.8 pg/mL (4.0-51.3)
== END 2024-07-22 11:47 | disposition home or self-care (01) ==
LOC: LAB 11:50
PROVIDERS: PCP Family Medicine; Visit Provider Family Medicine
DX: E05.90 Thyrotoxicosis, unspecified without thyrotoxic crisis or storm (principal); R60.9 Edema, unspecified; I50.30 Unspecified diastolic (congestive) heart failure; I11.0 Hypertensive heart disease with heart failure
CPT/HCPCS: 36415; 80053; 83880; 84439; 84443; 84484; 85007; 85027

== ENCOUNTER 2024-07-24 14:16 | Outpatient (OUT) | payer MEDICARE, OTHER, SELFPAY ==
[2024-07-24 14:50] LABS: Bilirubin Urine NEGATIVE (NEGATIVE); Blood Urine LARGE (NEGATIVE); Clarity Urine CLEAR (CLEAR); Color Urine LT. YELLOW (YELLOW); Glucose Urine UA NEGATIVE (NEGATIVE); Ketones Urine NEGATIVE (NEGATIVE); Leukocyte Esterase Urine MODERATE (NEGATIVE); Nitrite Urine NEGATIVE (NEGATIVE); Protein Urine TRACE mg/dL (NEG/TRACE); Specific Gravity Urine 1.015 (1.005-1.025); Urobilinogen Urine 0.2 EU/dL (0.2-1.0); pH Urine 6.5 (5.0-9.0)
[2024-07-24 14:58] LABS: Bacteria Urine TRACE #/HPF (NONE SEEN); Cast Seen? SEEN #/LPF (NONE SEEN); Crystals Seen? None Seen #/HPF (None Seen); Hyaline Casts Urine FEW; Mucus Urine NONE SEEN (NONE SEEN); Squamous Epithelial Cell Urine FEW #/LPF (NONE/RARE)
[2024-07-24 14:59] LABS: Urine Culture Indicated ALREADY ORDERED
== END 2024-07-24 14:17 | disposition home or self-care (01) ==
LOC: LAB 14:18
PROVIDERS: PCP Family Medicine; Visit Provider Family Medicine
DX: N39.0 Urinary tract infection, site not specified (principal)
CPT/HCPCS: 81001; 87086

== ENCOUNTER 2024-08-06 11:36 | Emergency (ER) | payer MEDICARE, OTHER, SELFPAY ==
[2024-08-06 11:42] VITALS: BP 142/81; PULSE 88; TEMP 36.6; O2SAT 98; BMI 19.2
--- NOTE | 2024-08-06 11:55 | ED_ITS ---
HPI HPI - General Adult General Chief complaint: Urogenital-Female Stated complaint: UTI DR LEARY SENT OVER Time Seen by Provider: 08/06/24 11:37 Source: family Mode of arrival: walk-in History of Present Illness HPI narrative: Patient presents to ED for evaluation of not feeling well. Family states she has had increased confusion that was much worse this morning. They said she could not figure out how to get out of her room and that is not like her. She does not have any formal diagnosis of dementia. She does have a history of Parkinson's. Family states she has been very unsteady more than normal. She h as had a urinary tract infection and has been in the ER the past 2 Sundays. She has been on 2 different rounds of antibiotics and does not seem to be improving. Patient denies any fevers or vomiting. No abdominal pain or back pain. She denies any chest pain or shortness of breath. She denies any neurological deficits just complains of generalized weakness fatigue and overall not feeling well. They called Dr. Leary's office and were to come over here for further evaluation. Vital signs stable, afebrile. Related Data Home Medications ?Medication ?Instructions ?Recorded ?Confirmed alprazolam 1 mg tablet 1.5 mg PO BEDTIME PRN sleep 02/08/23 08/06/24 amlodipine 5 mg tablet 5 mg PO DAILY 02/08/23 08/06/24 potassium chloride 20 mEq 20 meq PO BID 02/08/23 08/06/24 tablet,extended release(part/cryst) (Klor-Con M) pravastatin 20 mg tablet 20 mg PO DAILY 02/08/23 08/06/24 ascorbic acid (vitamin C) 1,000 mg 1 g PO DAILY 07/30/23 08/06/24 capsule cholecalciferol (vitamin D3) 125 125 mcg PO DAILY 07/30/23 08/06/24 mcg (5,000 unit) capsule cyclobenzaprine 10 mg tablet 10 mg PO BID PRN muscle spasm 07/30/23 08/06/24 ropinirole 0.25 mg tablet 0.5 mg PO TID 07/30/23 08/06/24 aspirin 81 mg chewable tablet 81 mg PO DAILY 08/10/23 08/06/24 lutein 25 mg-zeaxanthin 5 mg 1 cap PO DAILY 08/10/23 08/06/24 capsule rasagiline 1 mg tablet 1 mg PO DAILY 08/10/23 08/06/24 amantadine HCl 100 mg tablet 100 mg PO BID 04/09/24 08/06/24 carbidopa ER 25 mg-levodopa 100 mg 1 tab PO .7am, 12pm, 5pm 04/09/24 08/06/24 tablet,extended release lisinopril 20 1 tab PO DAILY 04/09/24 08/06/24 mg-hydrochlorothiazide 25 mg tablet pantoprazole 40 mg tablet,delayed 40 mg PO DAILY 04/09/24 08/06/24 release Previous Rx's ?Medication ?Instructions ?Recorded gabapentin 300 mg capsule 300 mg PO BID #60 caps 07/23/24 Allergies Allergy/AdvReac Type Severity Reaction Status Date / Time Sulfa (Sulfonamide Allergy Severe Anaphylaxis Verified 08/06/24 11:40 Antibiotics) Opioid HPI Opioid Management Most Recent Opioid Data: Last Pain Scale 3 09/03/23 10:28 09/03/23 Last Pain Intensity 0 08/11/23 10:28 08/11/23 Review of Systems ROS Status of ROS 10 or more systems reviewed and unremark able except as noted in history and below [facility] Medical History Acute diarrhea ?R19.7 - Diarrhea, unspecified (ICD-10) Acute kidney injury ?N17.9 - Acute kidney failure, unspecified (ICD-10) Hiatal hernia ?K44.9 - Diaphragmatic hernia without obstruction or gangrene (ICD-10) COPD (chronic obstructive pulmonary disease) ?J44.9 - Chronic obstructive pulmonary disease, unspecified (ICD-10) Parkinsons ?G20 - Parkinson's disease (ICD-10) Hypertension ?I10 - Essential (primary) hypertension (ICD-10) Surgical History History of appendectomy ?Z90.49 - Acquired absence of other specified parts of digestive tract (ICD- 10) H/O: hysterectomy ?Z90.710 - Acquired absence of both cervix and uterus (ICD-10) H/O splenectomy ?Z90.81 - Acquired absence of spleen (ICD-10) Family History Brother Family history of stroke Family history of hypertension Mother Family history of stroke Family history of hypertension Father Family history of cancer Social History Within the past year, how often did you have a drink containing alcohol: never Within the past year, how many standard drinks containing alcohol did you have on a typical day: 1 or 2 Within the past year, how often did you have six or more drinks on one occasion: never Total score: 0 Score interpretation: A score less than 3 is consistent with normal alcohol consumption. Smoking status: Former smoker Non-prescribed substance use: denies use Previous occupational history: retired Highest level of school completed/degree received: high school graduate Are you now , , , , never or living with a partner: In a typical week, how many times do you talk on the telephone with family, friends, or neighbors: 3 or more times per week How often do you get together with friends or relatives: 3 or more times per week How often do you attend zoroastrianism or jehovah's witness services: 4 or more times per year Do you belong to any clubs or organizations such as zoroastrianism groups unions, [employer] or athletic groups, or school groups: no Total score: 2 Score interpretation: A score of greater than or equal to 2 indicates the lowest level of social isolation. Little interest or pleasure in doing things: not at all Feeling down, depressed, or hopeless: not at all Feel stressed/tense/nervous/anxious/difficulty sleeping: not at all Gender Identity: female Exam Narrative Exam Narrative: Time Seen: [] Vital Signs: [Per nurse's notes.] General: [Alert] shaky, tremorous Skin: [Warm, dry, no rash.] Head: [Normocephalic, atraumatic.] Neck: [Supple, trachea midline.] Eye: [Pupils are equal, round and reactive to light, extraocular movements are intact, normal conjunctiva.] Ears, nose, mouth and throat: oral mucosa moist. Cardiovascular: [Regular rate and rhythm, no murmur.] Respiratory: [Lungs are clear to auscultation, respirations are non-labored, breath sounds are equal.] Chest wall: [No tenderness, no deformity.] Gastrointestinal: [Soft, nontender, non distended, normal bowel sounds.] MSK: 5 out of 5 muscle strength x 4 extremities no calf pain or edema Lymphatics: [No lymphadenopathy.] Psychiatric: [Cooperative, appropriate mood & affect.] Neurological: [Alert and oriented to person, place, time, and situation, no focal neurological deficit observed.] Constitutional Vital Signs, click to edit/add: Last Vital Signs Temp 97.9 F 08/06/24 11:42 Pulse 88 08/06/24 11:42 Resp 16 08/06/24 11:42 BP 142/81 H 08/06/24 11:42 Pulse Ox 98 08/06/24 11:42 O2 Del Method Room Air 08/06/24 11:42 Course Vital Signs Vital signs: Vital Signs Temperature 97.9 F 08/06/24 11:42 Pulse Rate 88 08/06/24 11:42 Respiratory Rate 16 08/06/24 11:42 Blood Pressure 142/81 H 08/06/24 11:42 Pulse Oximetry 98 08/06/24 11:42 Oxygen Delivery Method Room Air 08/06/24 11:42 Temperature 97.9 F 08/06/24 11:42 Pulse Rate 88 08/06/24 11:42 Respiratory Rate 16 08/06/24 11:42 Blood Pressure 142/81 H 08/06/24 11:42 Pulse Oximetry 98 08/06/24 11:42 Oxygen Delivery Method Room Air 08/06/24 11:42 Medical Decision Making MDM Narrative Medical decision making narrative: Patient's labs are negative for acute findings. There is no urinary tract infection. CT brain negative for acute findings as well. I do not see any indication for admission at this time. No signs of stroke. No signs of infection. I called and spoke to Dr. Leary who knows the patient well. He states he can see her in the office tomorrow for close follow-up and further evaluation of the confusion, possibly an onset of dementia or worsening Parkinson's. Patient and family are comfortable with care plan for home. Return to ED if worsening symptoms or concerns. Differential Diagnosis Differential Diagnosis: UTI, sepsis, stroke, dementia, Parkinson's Lab Data Lab results reviewed: Yes I reviewed the patient's lab results Labs: Lab Results 08/06/24 08/06/24 08/06/24 Range/Units 12:15 12:20 12:24 WBC 8.9 (4.0-11.0) 10^3/uL RBC 4.49 (4.20-5.40) 10^6/uL Hgb 14.1 (12.0-16.0) g/dL Hct 42.4 (36.0-48.0) % MCV 94.4 (81.0-99.0) fL MCH 31.4 (26.7-34.0) pg MCHC 33.3 (29.9-35.2) g/dL RDW 15.2 H (11.0-15.0) % Plt Count 363 (150-450) 10^3/uL MPV 10.5 (9.5-13.5) fL Seg Neuts % (Manual) 48.0 (43.0-75.0) Lymphocytes % (Manual) 28.0 (20.5-60.0) % Monocytes % (Manual) 20.0 H (1.7-12.0) % Eosinophils % (Manual) 1.0 (0.9-7.0) % Basophils % (Manual) 3.0 H (0.2-2.0) % Neutrophils # (Manual) 4.27 (1.4-6.5) 10^3/uL Lymphocytes # (Manual) 2.49 (1.20-3.80) 10^3/uL Monocytes # (Manual) 1.78 H (0.30-0.80) 10^3/uL Eosinophils # (Manual) 0.08 (0.00-0.70) 10^3/uL Basophils # (Manual) 0.26 H (0.00-0.10) 10^3/uL Sodium 139 (136-145) mmol/L Potassium 4.2 (3.5-5.1) mmol/L Chloride 104 (98-107) mmol/L Carbon Dioxide 28.2 (21.0-32.0) mmol/L Anion Gap 11.0 BUN 32.0 H (7.0-18.0) mg/dL Creatinine 1.33 H (0.55-1.02) mg/dL Est GFR ( Amer) 47 L (>=60 mL/min/1.73m^2) Est GFR (Non-Af Amer) 39 L (>=60 mL/min/1.73m^2) BUN/Creatinine Ratio 24.1 Glucose 90 (74-106) mg/dL Calcium 11.4 H (8.5-10.1) mg/dL Total Bilirubin 0.4 (0.2-1.0) mg/dL AST 17 (15-37) U/L ALT 10 L (14-59) U/L Alkaline Phosphatase 133 H (46-116) U/L Troponin I High Sens 19.8 (4.0-51.3) pg/mL Total Protein 7.2 (6.4-8.2) g/dL Albumin 4.0 (3.4-5.0) g/dL Globulin 3.2 g/dL Albumin/Globulin Ratio 1.3 Urine Color Lt. yellow (YELLOW) Urine Clarity Clear (CLEAR) Urine pH 6.5 (5.0-9.0) Ur Specific [place] 1.020 (1.005-1.025) Urine Protein Negative (NEG/TRACE) mg/dL Urine Glucose (UA) Negative (NEGATIVE) mg/dL Urine Ketones Negative (NEGATIVE) mg/dL Urine Occult Blood Trace-i (NEGATIVE) Urine Nitrite Negative (NEGATIVE) Urine Bilirubin Negative (NEGATIVE) Urine Urobilinogen 0.2 (0.2-1.0) EU/dL Ur Leukocyte Esterase Negative (NEGATIVE) Urine RBC 5-10 A (0-2) #/HPF Urine WBC 2-5 A (NONE SEEN) #/HPF Ur Squamous Epith Cells None seen (NONE/RARE) #/LPF Urine Crystals None seen (None Seen) #/HPF Urine Bacteria Trace A (NONE SEEN) #/HPF Urine Casts None seen (NONE SEEN) #/LPF Urine Mucus None seen (NONE SEEN) Ur Culture Indicated? Yes[facility] Influenza Type A Ag Negative Influenza Type B Ag Negative SARS-CoV-2 Ag (CV2AG) Negative (NEGATIVE) Imaging Data Chest x-ray: Attestation: I have reviewed the pertinent imaging results. Discharge Plan Discharge Chief Complaint: Urogenital-Female Clinical Impression: Weakness generalized Patient Disposition: Home, Self-Care Time of Disposition Decision: 13:31 Condition: Good Mode of Transportation: Private Vehicle Prescriptions / Home Meds: No Action alprazolam 1 mg tablet 1.5 mg PO BEDTIME PRN (Reason: sleep) amlodipine 5 mg tablet 5 mg PO DAILY potassium chloride [Klor-Con M20] 20 mEq tablet,ER particles/crystals 20 meq PO BID pravastatin 20 mg tablet 20 mg PO DAILY ropinirole 0.25 mg tablet 0.5 mg PO TID ascorbic acid (vitamin C) 1,000 mg capsule 1 g PO DAILY cholecalciferol (vitamin D3) 125 mcg (5,000 unit) capsule 125 mcg PO DAILY cyclobenzaprine 10 mg tablet 10 mg PO BID PRN (Reason: muscle spasm) aspirin 81 mg tablet,chewable 81 mg PO DAILY lutein-zeaxanthin 25-5 mg capsule 1 cap PO DAILY rasagiline 1 mg tablet 1 mg PO DAILY amantadine HCl 100 mg tablet 100 mg PO BID carbidopa-levodopa 25-100 mg tablet extended release 1 tab PO .7am, 12pm, 5pm pantoprazole 40 mg tablet,delayed release (DR/EC) 40 mg PO DAILY lisinopril-hydrochlorothiazide 20-25 mg tablet 1 tab PO DAILY gabapentin 300 mg capsule 300 mg PO BID Qty: 60 0RF Rx Instructions: DO NOT FILL TILL 07/24/24 Print Language: Korean Instructions: Weakness (ED) Referrals: Kavon Leary MD [Primary Care Provider] - 1 week Discharge Date/Time: 08/06/24 13:40
[2024-08-06] MEDS: 0.9 % SODIUM CHLORIDE 500 ML IV (12:28)
[2024-08-06 12:33] LABS: Hematocrit 42.4 % (36.0-48.0); Hemoglobin 14.1 g/dL (12.0-16.0); Mean Corpuscular HGB Conc 33.3 g/dL (29.9-35.2); Mean Corpuscular Hemoglobin 31.4 pg (26.7-34.0); Mean Corpuscular Volume 94.4 fL (81.0-99.0); Mean Platelet Volume 10.5 fL (9.5-13.5); Platelet Count 363 10^3/uL (150-450); Red Blood Count 4.49 10^6/uL (4.20-5.40); Red Cell Distribution Width 15.2 % (11.0-15.0); White Blood Count 8.9 10^3/uL (4.0-11.0)
[2024-08-06 12:35] LABS: Bilirubin Urine NEGATIVE (NEGATIVE); Blood Urine TRACE-I (NEGATIVE); Clarity Urine CLEAR (CLEAR); Color Urine LT. YELLOW (YELLOW); Glucose Urine UA NEGATIVE (NEGATIVE); Ketones Urine NEGATIVE (NEGATIVE); Leukocyte Esterase Urine NEGATIVE (NEGATIVE); Nitrite Urine NEGATIVE (NEGATIVE); Protein Urine NEGATIVE (NEG/TRACE); Urobilinogen Urine 0.2 EU/dL (0.2-1.0); pH Urine 6.5 (5.0-9.0)
[2024-08-06 12:37] LABS: Urine Microscopic Indicated YES
[2024-08-06 12:42] LABS: Influenza Virus A Antigen Negative; Influenza Virus B Antigen Negative; Internal Control Within Normal Limits; SARS-CoV-2 Ag NEGATIVE (NEGATIVE)
[2024-08-06 12:43] LABS: Bacteria Urine TRACE #/HPF (NONE SEEN)
[2024-08-06 12:44] LABS: Cast Seen? NONE SEEN #/LPF (NONE SEEN); Crystals Seen? None Seen #/HPF (None Seen); Mucus Urine NONE SEEN (NONE SEEN); Squamous Epithelial Cell Urine NONE SEEN #/LPF (NONE/RARE); Urine Culture Indicated YES-FRMC
[2024-08-06 12:51] LABS: Alanine Aminotransferase 10 U/L (14-59); Albumin Globulin Ratio 1.3; Alkaline Phosphatase 133 U/L (46-116); Aspartate Amino Transferase 17 U/L (15-37); BUN Creatinine Ratio 24.1; Bilirubin Total 0.4 mg/dL (0.2-1.0); Calcium 11.4 mg/dL (8.5-10.1); Carbon Dioxide 28.2 mmol/L (21.0-32.0); Chloride 104 mmol/L (98-107); Estimated GFR (African America 47 (>=60 mL/min/1.73m^2); Estimated GFR (Non-African Ame 39 (>=60 mL/min/1.73m^2); Globulin 3.2 g/dL; Glucose 90 mg/dL (74-106); Potassium 4.2 mmol/L (3.5-5.1); Sodium 139 mmol/L (136-145); Total Protein 7.2 g/dL (6.4-8.2)
[2024-08-06 12:53] LABS: Troponin I High Sensitivity 19.8 pg/mL (4.0-51.3)
[2024-08-06 12:55] LABS: Basophils Abs Manual 0.26 10^3/uL (0.00-0.10); Eosinophils Absolute Manual 0.08 10^3/uL (0.00-0.70); Lymphocytes Absolute Manual 2.49 10^3/uL (1.20-3.80); Monocytes Absolute Manual 1.78 10^3/uL (0.30-0.80); Segmented Neut Absolute Manual 4.27 10^3/uL (1.4-6.5)
== END 2024-08-06 13:40 | disposition home or self-care (01) ==
PROVIDERS: Emergency Provider Emergency Medicine; PCP Family Medicine
DX: R53.1 Weakness (principal); R41.0 Disorientation, unspecified; G20.A1 Parkinson's disease without dyskinesia, without mention of fluctuations; Z90.710 Acquired absence of both cervix and uterus; Z90.81 Acquired absence of spleen; Z90.49 Acquired absence of other specified parts of digestive tract; Z87.891 Personal history of nicotine dependence
CPT/HCPCS: 36415; 70450; 71045; 80053; 81001; 84484; 85007; 85027; 87086; 87804; 87811; 99285

== ENCOUNTER 2024-08-13 11:19 | Observation (INO) | payer MEDICARE, OTHER, SELFPAY ==
[2024-08-13] VITALS (20 sets, daily range): BP systolic 137–168; BP diastolic 59–79; PULSE 68–93; TEMP 36.3–36.8; O2SAT 72–96; BMI 18.9; BMI 19.2
--- NOTE | 2024-08-13 11:42 | ECG_ITS ---
[facility] Test Date: 2024-08-13 Pat Name: NANCY KHAN Department: Room: - Gender: Female Insurance Administrative Assistant: : [id number] Requested By: [id number] Order Number: [id number] Reading MD: ANDREW MARISCAL M.D. Measurements Intervals [place] Rate: 71 P: 76 AL: 168 QRS: -17 QRSD: 94 T: 66 QT: 372 QTc: 394 Interpretive Statements 1100 Sinus rhythm 3434 Septal myocardial infarction, age undetermined 9150 abnormal ECG Compared to ECG 04/09/2024 08:19:39 No significant changes Electronically Signed On 08-14-2024 6:28:12 EST by ANDREW MARISCAL M.D.
--- OUTSIDE RECORDS SUMMARY | 2024-08-13 11:44 | XMS_ITS | CCD ---
Author Organization [facility] Care Team Providers Care Transfer And Pumphouse Operator Chief Name Role Phone SELF, REFERRED Unavailable Unavailable SELF, REFERRED Unavailable Unavailable BRAMOS, ATHANASIOS Unavailable Unavailable SUPA MAY Unavailable Unavailable [place] Unavailable Unavailable BRAMOS, ATHANASIOS Unavailable Unavailable [place] Unavailable Unavailable SUPA MAY Unavailable Unavailable PHYSICIAN, [...] HOGaurang ., DR MENSAH Primary Care Unavailable ZIEBER, DR RAMIRO Gates Consulting Unavailable ALBA TROTTER Consulting Unavailable LANDY SEHRMAN Consulting Unavailable YULISSA TALBERT Consulting Unavailable SUPA [...] Primary Care Provider DIXIE Gill Attending Provider Rodrick Sams Primary Care Physician Elian Quigley Unavailable Unavailable Rodrick Sams MD Unavailable Rodrick Sams Md Primary Care Provider Rodrick Sams Md Primary Care Provider Gimaulik HERRERA, Andrius Nath Attending Unavailable Giedraitis , Andrius Pham Attending Unavailable Giedraitis , Andrius Valla Attending Unavailable Giedraitis , Andrius Vytautas Attending Unavailable Giedraitis , Andrius Vytautchuck Attending Unavailable SHEEHAN, JIANLIN Admitting Unavailable SHEEHAN, JIANLIN Attending Unavailable SHEEHAN, JIANLIN Admitting Unavailable AMRIK, MILA Referring Unavailable SHEEHAN, JIANLIN Attending Unavailable AMRIK, MILA Attending Unavailable ALGHOTHSTEPHENIE MORENO Attending Unavailable MORELIA JOSH Referring Unavailable SHEEHAN, JIANLIN Attending Unavailable AMRIK, MILA Referring Unavailable SHEEHAN, JIANLIN Attending Unavailable SHEEHAN, JIANLIN Referring Unavailable SHEEHAN, JIANLIN Attending Unavailable SHEEHAN, JIANLIN Attending Unavailable AMRIK, MILA Attending Unavailable Rodrick Sams MD Primary Care Provider [phone] Rodrick Sams MD Attending Provider [phone] Jazmin Morfin Attending Unavailable Jazmin Morfin Attending Unavailable Augie Sidhu Attending Unavailable Mila Mao M Unavailable Unavailable Christopher Sales Attending Unavailable Christopher Sales Attending Unavailable SIDRADAVID Referring Unavailable SIDRA, DAVID Referring Unavailable SIDRA, DAVID Attending Unavailable SIMON, MARIOLA Attending Unavailable SIMON, MARIOLA Referring Unavailable SIMON, MARIOLA Attending Unavailable SIMON, MARIOLA Referring Unavailable SIMON, MARIOLA Attending Unavailable SIDRA, DAVID Referring Unavailable SIDRA, DAVID Referring Unavailable Meghan Ramachandran DO Attending Provider POCOS, SUPA Davis Attending Unavailable POCOS, SUPA Davis Referring Unavailable POCOS, SUPA Davis Referring Unavailable POCOS, SUPA Davis Referring Unavailable POCOS, SUPA Davis Attending Unavailable GIOVANNI GILL Attending Unavailable GIOVANNI GILL Attending Unavailable GIOVANNI GILL Referring Unavailable GIOVANNI GILL Attending Unavailable Demarco Beaver. Attending Unavailable Rodrick Sams Admitting Unavailable Rodrick Sams Attending Unavailable Meghan Ramachandran Admitting Unavailable Meghan Ramachandran Attending Unavailable Giovanni Gill Admitting Unavailable Giovanni Gill Attending Unavailable Rodrick Sams Primary Care Unavailable Allergies Allergy Classification Reported Allergen(s) Allergy Type Date of Onset Reaction(s) Facility Sulfonamides (antibiotic) (1 source) Sulfonamides (Antibiotic); Translations: [sulfa drugs] Drug Allergy Unknown (qualifier value) [facility] (5 sources) Sulfonamides (Antibiotic); Translations: [SULFA (SULFONAMIDE ANTIBIOTICS)] Drug allergy (disorder) 4 [facility] (1 source) Cephalexin Drug Allergy 2 [facility] (10 sources) Sulfonamides (Antibiotic); Translations: [sulfa drugs] Drug allergy Unknown (qualifier value) [facility] (15 sources) Naproxen; Translations: [NAPROXEN SODIUM] Drug Allergy 4 Unknown [facility] (20 sources) Sulfonamides (Antibiotic) Drug Allergy 4 Anaphylaxis [facility] (1 source) traZODone; Translations: [TRAZODONE] Drug Allergy 4 [facility] (1 source) Unable to Assess Drug allergy (disorder) 3 [facility] Medications Current Medications Medication Drug Class(es) Dates Sig (Normalized) Sig (Original) acetaminophen 500 mg oral tablet (10 sources) Start: 09-18-2023 take 1 tablet by mouth every six hours as needed [facility] Acetaminophen Ex St 500 MG tablet Take 500 mg by mouth every 6 (six) hours if needed 09/18/2023 Active acetaminophen 325 mg / HYDROcodone bitartrate 5 mg oral tablet (1 source) Opioid Agonist Start: 08-12-2024 [place] 325 mg-5 mg oral tablet See Instructions, for pain, 30 tab(s), Refill(s) 0, 1 - 2 po q4-6h prn pain Dx: S52.501D Duration: 7 days, [id number], 167, cm, 08/07/24 6:28:00 EST, Height/Length Dosing, 54.2, kg, 08/07/24 6:28:00 EST, Weight Dosing Start Date: 08/12/24 Status: Ordered acetaminophen 325 mg / oxyCODONE hydrochloride 5 mg oral tablet (5 sources) Opioid Agonist Start: 07-25-2024 oxyCODONE-acetamino phen (Percocet) 5-325 MG tablet 07/25/2024 Active Start: 07-24-2024 End: 07-27-2024 take 1 tablet by mouth every six hours as needed for pain oxyCODONE-acetaminophen (Percocet) 5-325 MG tablet TAKE 1 TABLET BY MOUTH EVERY 6 HOURS NEEDED FOR PAIN (8-10) FOR 3 DAYS 07/25/2024 Active ALPRAZolam 1 mg oral tablet (20 sources) Benzodiazepine Start: 02-10-2020 alprazolam 1 mg Tab 1 mg = 1 tab(s), Oral, PRN for anxiety Start Date: 02/10/20 Status: Ordered Comment on above: Take 1 mg by mouth a t bedtime as needed. amantadine hydrochloride 100 mg oral tablet (20 sources) Influenza A M2 Protein Inhibitor Start: 10-22-2023 End: 10-14-2024 take 1 tablet by mouth three times daily amantadine 100 mg Tab 100 mg = 1 tab(s), Oral, TID, Refills(s) 0, Other (see comment) Start Date: 08/11/24 Status: Ordered Start: 10-22-2023 End: 11-07-2024 take 1 tablet [...] 1 tablet by mouth once daily amLODIPine 5 mg Tab 5 mg = 1 tab(s), Oral, Daily, Refills(s) 0, High blood pressure Start Date: 08/07/24 Status: Ordered Start: 02-10-2020 take 1 tablet by clyde [...] Start: 06-18-2014 take 1 tablet by clyde once daily aspirin, enteric coated (ASPIR-LOW) 81 mg EC tablet Take 1 tablet by mouth once daily. 0 06/18/2014 Active Comment on above: Take 1 tablet by clyde once daily. Calcium Carbonate-Vit D-Min (Calcium 600+D Plus Minerals) 600-400 MG-UNIT tablet (10 sources) Calcium Carbonate-Vit D-Min (Calcium 600+D Plus Minerals) 600-400 MG-UNIT tablet 1 (one) time each day at the same time Active carbidopa 25 mg / levodopa 100 mg extended release oral tablet (20 sources) Aromatic Amino Acid Decarboxylation Inhibitor, Aromatic Amino Acid Start: 08-11-2024 take 1 tablet by mouth three times daily carbidopa-levodo pa 25 mg-100 mg ER Tab 1 tab(s), Oral, TID, Refill(s) 0, Other (see comment) Start Date: 08/11/24 Status: Ordered Start: 06-06-2024 take 1 tablet by clyde th three times daily carbidopa-levodopa CR (Sinemet CR) 25-100 MG ER tablet TAKE 1 TABLET BY MOUTH 3 TIMES A DAY (7AM, 12PM AND 5PM) 06/06/2024 Active Start: 01-14-2024 End: 03-04-2024 take 1 tablet by mouth three times [...] once daily. cephalexin 500 mg oral capsule (4 sources) Cephalosporin Antibacterial Start: 08-03-2024 End: 08-08-2024 take 1 capsule by mouth every twelve hours Keflex 500 mg Cap 500 mg = 1 cap(s), Oral, q12hr, X 5 day(s), # 10 cap(s), Refills(s) 0, [id number], cm, 08/03/24 19:04:00 EST, Height/Length Dosing, 54.2, kg, 08/03/24 19:04:00 EST, Weight Dosing Start Date: 08/03/24 Stop Date: 08/08/24 Status: Ordered Start: 06-23-2023 End: 06-28-2023 take 1 capsule by mouth three times daily Keflex 500 mg Cap 500 mg = 1 cap(s), Oral, TID, X 5 day(s), # 15 cap(s), Refills(s) 0, [id number] 167, cm, 06/23/23 1:52:00 EST, Height/Length Dosing, 56.3, kg, 06/23/23 1:52:00 EST, Weight Dosing Start Date: 06/23/23 Stop Date: 06/28/23 Status: Ordered cholecalciferol 0.05 mg oral tablet (14 sources) Vitamin D take 1 tablet by mouth once daily Cholecalciferol, Vitamin D3, (D3 DOTS) 2,000 unit tab Take 2,000 Units by mouth once daily. Active Comment on above: Take 2,000 Units by mouth once daily. ciprofloxacin 500 mg oral tablet (10 sources) Quinolone Antimicrobial Start: End: take 1 tablet by mouth twice daily Cipro 500 mg Tab 500 mg = 1 tab(s), Oral, BID, # 14 tab(s), Refills(s) 0, [id number] 167, cm, 07/26/24 16:07:00 EST, Height/Length Dosing, 54, kg, 07/26/24 16:07:00 EST, Weight Dosing Start Date: 07/26/24 Status: Ordered Start: 02-25-2020 Cipro 500 mg T ab See Instructions, Take 1 tab day prior to procedure and 1 tab day of procdure - afterwards, # 2 tab(s), Refills(s) 0, [id number] 167, cm, 02/10/20 14:06:00 EDT, Height/Length Dosing, 52, kg, 02/10/20 14:06:00 EDT, Weight Dosing Start Date: 02/25/20 Status: Ordered cyclobenzaprine hydrochloride 10 mg oral tablet (20 sources) Muscle Relaxant Start: 07-30-2023 cyclobenzaprine (FLEXERIL) 10 mg tablet Take 10 mg by mouth. 07/30/2023 Active Comment on above: Take 10 mg by mouth. Daily Multiple for Women 50+ oral tablet (5 sources) Start: 02-10-2020 take 1 tablet by mouth once daily Daily Multiple for Women 50+ oral tablet 1 tab(s), Oral, Daily Start Date: 02/10/20 Status: Ordered gabapentin 300 mg oral capsule (20 sources) Anti-epileptic Agent Start: 08-11-2024 take 1 capsule by mouth once daily in the evening gabapentin 300 mg Cap 300 mg = 1 cap(s), Oral, qPM, Refills(s) 0 Start Date: 08/11/24 Status: Ordered Start: 07-30-2023 take 1 capsule by mo uth once daily, then take 1 capsule by mouth twice daily, then take 1 capsule by mouth three times daily gabapentin (NEURONTIN) 300 mg capsule TAKE 1 CAPSULE BY MOUTH ONCE DAILY X3DAYS, 1 CAPSULE TWICE DAILY X3DAYS THEN 1 CAPSULE 3 TIMES DAILY 07/30/2023 Active Comment on above: TAKE 1 CAPSULE BY MO UTH ONCE DAILY X3DAYS, 1 CAPSULE TWICE DAILY X3DAYS THEN 1 CAPSULE 3 TIMES DAILY hydroCHLOROthiazide 25 mg / lisinopril 20 mg oral tablet (20 sources) Thiazide Diuretic, Angiotensin Converting Enzyme Inhibitor Start: take 1 tablet by mouth once daily hydrochlorothiazide -lisinopril 25 mg-20 mg Tab 1 tab(s), Oral, Daily, High blood pressure Start Date: 02/10/20 Status: Ordered Comment on above: Take 1 tablet by clyde once daily. metoprolol tartrate 100 mg oral tablet (17 sources) beta-Adrenergic Ayo End: take 1 tablet by mouth in the morning metoprolol tartrate (Lopressor) 100 MG tablet Take 100 mg by mouth in the morning and 100 mg before bedtime. Active Comment on above: Take 100 mg by mouth twice daily. Misc Medication (5 sources) Start: Misc Medication calcium +D3 Start Date: 02/10/20 Status: Ordered Multivitamin preparation (14 sources) MULTIVITAMIN (VITAMIN DAILY ORAL) Take by mouth once daily. Active MULTIVITAMIN ( TAMIN DAILY ORAL) Take by mouth once daily. 0 Active Comment on above: Take by mouth once d aily. omeprazole 20 mg delayed release oral capsule (10 sources) Proton Pump Inhibitor Start: 4 take 1 capsule by mouth before mealtime omeprazole (PriLOSEC) [address] capsule Take 20 mg by mouth in the morning. Take before meals. 09/11/2023 Active pantoprazole 40 mg delayed release oral tablet (11 sources) Proton Pump Inhibitor Start: 5 take 1 tablet by mouth twice daily Pantoprazole [address] Tab 40 mg = 1 tab(s), Oral, BID, Refills(s) 0, Indigestion Start Date: 08/11/24 Status: Ordered take 1 tablet by mouth before me altime pantoprazole (ProtoNix) 40 MG EC tablet Take 40 mg by mouth in the morning. Take before meals. Active phenazopyridine hydrochloride 200 mg delayed release oral tablet (10 sources) Start: 09-07-2023 phenazopyridin e (Pyridium) 200 MG tablet Take 200 mg by mouth in the morning and 200 mg at noon and 200 mg in the evening. Take with meals. 09/07/2023 Active microencapsulated potassium chloride 20 meq extended release oral tablet (20 sources) Start: 06-30-2023 take 1 tablet by mouth in the morning KLOR-CON 20 MEQ ER tablet Take 1 tablet by mouth in the morning and 1 tablet in the evening. Take with meals. 06/30/2023 Active Start: 06-30-2023 take 1 tablet by clyde every twelve hours KLOR-CON M20 20 mEq tablet Take 1 tablet by mouth every 12 hours. 06/30/2023 Active Start: 02-10-2020 take 1 tablet by clyde twice daily potassium chloride 20 mEq ER Tab 20 mEq = 1 tab(s), Oral, BID, Prophylaxis Start Date: 02/10/20 Status: Ordered Start: 02-10-2020 take 2 tablets by mo [facility] once daily potassium chloride 20 mEq ER Tab 40 mEq = 2 tab(s), Oral, Daily Start Date: 02/10/20 Status: Ordered take 2 tablets by mo [facility] in the morning potassium chloride CR (Klor-Con) [...] Tab 20 mg = 1 tab(s), Oral, Daily, High cholesterol Start Date: 02/10/20 Status: Ordered Comment on above: Take 20 mg by mouth once daily. rasagiline 1 mg oral tablet (20 sources) Monoamine Oxidase Inhibitor Start: 08-11-2024 take 1 tablet by mouth once daily rasagiline 1 mg oral tablet 1 mg = 1 tab(s), Oral, Daily, Refills(s) 0, Other (see comment) Start Date: 08/11/24 Status: Ordered Start: 07-20-2023 take 1 tablet by clyde th once daily rasagiline (Azilect) 1 MG tablet Indications: Parkinson's disease ([facility]) TAKE 1 TABLET BY MOUTH EVERY DAY 90 tablet 1 03/27/2024 Active Comment on above: Take by mouth. rOPINIRole 0.25 mg oral tablet (20 sources) Nonergot Dopamine Agonist Start: 08-11-2024 take 1 tablet by mouth at bedtime ropinirole 0.25 mg Tab 0.25 mg = 1 tab(s), Oral, Bedtime, Refills(s) 0, Other (see comment) Start Date: 08/11/24 Status: Ordered Start: 09-13-2023 take 1 tablet by clyde [...] at night. Continue on that dose thereafter. spironolactone 50 mg oral tablet (3 sources) Aldosterone Antagonist Start: 07-22-19 take 1 tablet by mouth once daily spironolactone (Aldactone) 50 MG tablet TAKE 1 TABLET BY MOUTH EVERY DAY FOR 3 DAYS 07/22/2024 Active sucralfate 1000 mg oral tablet (4 sources) Aluminum Complex Start: 08-12-19 take 1 tablet by mouth once daily sucralfate 1 g Tab 1 gm = 1 tab(s), Oral, Daily, Refills(s) 0 Start Date: 08/11/24 Status: Ordered Start: 07-10-2024 take 1 tablet by clyde th four times daily sucralfate (Carafate) 1 g tablet TAKE 1 TABLET BY MOUTH 4 TIMES A DAY ON AN EMPTY STOMACH FOR 7 DAYS 07/10/2024 Active UNABLE TO FIND (10 sources) UNABLE TO FIND H PA BASHIR Active Vitamin D (1 source) Start: 08-11-2024 Vitamin D Refi lls(s) 0 Start Date: 08/11/24 Status: Ordered Completed/Discontinued Medications Medication Drug Class(es) [...] Take 800 mg by mouth once daily. lisinopril 20 mg oral tablet (8 sources) Angiotensin Converting Enzyme Inhibitor End: take 1 tablet by mouth once daily lisinopril 20 MG tablet Take 1 tablet by mouth Daily 07/30/2024 Discontinued OMEGA-3 FATTY ACIDS/FISH OIL (OMEGA 3 FISH OIL ORAL) (7 sources) End: OMEGA-3 FATTY ACIDS/FISH OIL (OMEGA 3 FISH [...] Episodic Chronic obstructive pulmonary disease and bronchiectasis (14 sources) Chronic obstructive pulmonary disease, unspecified; Translations: [...] Translations: [Pure hypercholesterolemia, unspecified] Onset: 06-18-2014 Chronic E Codes: Fall (1 source) Fall; Translations: [Unspecified fall, initial encounter] Onset: 07-24-2024 Episodic Essential hypertension (20 sources) Essential (primary) hypertension; Translations: [Essential hypertension] Onset: 07-02-2013 Chronic External Injury - Fall (1 source) Unspecified fall, initial encounter; Translations: [UNSPECIFIED FALL, INITIAL ENCOUNTER] Onset: 08-11-2017 Fluid and electrolyte disorders (3 sources) Hypokalemia; Translations: [Dehydration] Onset: 08-11-2017 Episodic Fracture of upper limb (7 sources) Closed fracture of distal end of radius; Translations: [Unspecified fracture of the lower end of unspecified radius, initial encounter for closed fracture] Onset: 07-24-2024 Episodic Hypertension with complications and secondary hypertension (1 source) Hypertensive heart disease with heart failure; Translations: [HTN HEART DISEASE W/HEART FAIL] Onset: 10-12-2022 Chronic Miscellaneous mental health disorders (10 sources) Primary insomnia; Translations: [Primary insomnia] Onset: 10-25-2023 10-25-2023 Chronic Nutritional deficiencies (3 sources) Unspecified protein-calorie malnutrition; Translations: [Vitamin D deficiency, unspecified] Onset: 08-11-2017 Chronic Occlusion or stenosis of precerebral arteries (4 sources) Bilateral stenosis of carotid arteries; Translations: [Occlusion and stenosis of bilateral carotid arteries] 04-23-2024 Chronic Other circulatory disease (6 sources) History of cerebrovascular accident; Translations: [Personal history of transient ischemic attack (TIA), and cerebral infarction without residual deficits] 04-23-2024 Episodic Other diseases of kidney and ureters (6 sources) Hydronephrosis 02-10-2020 Episodic Other diseases of kidney and ureters (6 sources) Kidney disease 02-10-2020 Episodic Other diseases of kidney and ureters (20 sources) Obstruction of pelviureteric junction; Translations: [Crossing vessel and stricture of ureter without hydronephrosis] Onset: 02-20-2020 02-10-2020 Episodic Other eye disorders (1 source) Degenerative disorder of eye; 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, bilateral eye] 09-13-2023 Chronic Other eye disorders (1 source) Degenerative myopia with other maculopathy, bilateral eye; 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, bilateral eye] Onset: 09-13-2023 Chronic Other hereditary and degenerative nervous system conditions (10 sources) Intention tremor; Translations: [Other specified forms of tremor] Onset: 10-25-2023 10-25-2023 Chronic Other hereditary and degenerative nervous system conditions (14 sources) Restless legs; Translations: [Restless legs syndrome] Onset: 10-25-2023 10-25-2023 Chronic Other hereditary and degenerative nervous system conditions (12 sources) Dyskinesia; Translations: [Dystonia, unspecified] Onset: 10-25-2023 10-25-2023 Chronic Other injuries and conditions due to external causes (1 source) Injury of upper extremity; Translations: [Unspecified injury of unspecified wrist, hand and finger(s), initial encounter] Onset: 07-24-2024 Episodic Other lower respiratory disease (1 source) Hypoxemia; Translations: [Hypoxemia] Onset: 06-23-2023 Episodic Other lower respiratory disease (6 sources) History of chronic lung disease 02-10-2020 Episodic Other nervous system disorders (15 sources) Neuropathy; Translations: [Polyneuropathy, unspecified] Onset: 09-13-2023 09-13-2023 Chronic Other nervous system disorders (12 sources) Carpal tunnel syndrome of right wrist; Translations: [Carpal tunnel syndrome, right upper limb] Onset: 10-25-2023 10-25-2023 Chronic Other nervous system disorders (12 sources) Chronic pain; Translations: [Other chronic pain] Onset: 10-25-2023 10-25-2023 Chronic Other nervous system disorders (1 source) Polyneuropathy, unspecified; Translations: [Neuropathy] Onset: 09-13-2023 Chronic Other non-traumatic joint disorders (3 sources) Pain of right wrist; Translations: [Pain in right wrist] 07-30-2024 Episodic Other nutritional; endocrine; and metabolic disorders (2 sources) Hypocalcemia; Translations: [Other disorders of phosphorus metabolism] Onset: 08-11-2017 Chronic Other nutritional; endocrine; and metabolic disorders (1 source) Underweight; Translations: [Underweight] 07-30-2024 Episodic Other screening for suspected conditions (not mental disorders or infectious disease) (1 source) Blood chemistry abnormal; Translations: [Other specified abnormal findings of blood chemistry] Onset: 06-23-2023 Episodic Other upper respiratory disease (1 source) Hoarse; Translations: [Dysphonia] 07-16-2024 Episodic Paralysis (10 sources) Right hemiplegia; Translations: [Hemiplegia, unspecified affecting right dominant side] Onset: 10-25-2023 10-25-2023 Chronic Parkinson's disease (8 sources) Parkinson's disease; Translations: [Parkinson's disease] Onset: 08-11-2017 06-23-2023 Chronic Parkinson`s disease (1 source) Parkinson`s disease; Translations: [Parkinson's disease with dyskinesia and fluctuating manifestations (HCC)] Onset: 09-13-2023 Residual codes; unclassified (1 source) Insomnia, unspecified; Translations: [INSOMNIA UNSPECIFIED] Onset: 10-12-2022 Episodic Residual codes; unclassified (1 source) Altered mental status; Translations: [Altered mental status, unspecified] Onset: 07-26-2024 Episodic Respiratory failure; insufficiency; arrest (adult) (1 source) Dependence on supplemental oxygen; Translations: [DEPENDENCE ON SUPPLEMENTAL OXYGEN] Onset: 05-22-2022 Chronic Retinal detachments; defects; vascular occlusion; and retinopathy (4 sources) 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-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 Chronic Spondylosis; intervertebral disc disorders; other back [...] fluctuations] Onset: 06-23-2023 Chronic 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) senior living (current) use of oral hypoglycemic drugs; 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: [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 ORAL HYPOGLYCEMIC DRUGS] Onset: [...] Translations: [Post-op] Onset: 11-27-2023 Urinary tract infections (4 sources) Urinary tract infection, site not specified; [...] Onset: 08-11-2017 Episodic Calculus of urinary tract (14 sources) Kidney stone; Translations: [Calculus of kidney] Onset: 02-20-2020 02-20-2020 Episodic Coagulation and hemorrhagic disorders (2 sources) Spontaneous ecchymoses; Translations: [Spontaneous ecchymoses] Onset: 08-22-2023 Episodic Crushing injury or internal injury (3 sources) Unspecified injury of spleen, initial encounter; Translations: [Major laceration of spleen, initial encounter] Onset: 08-11-2017 Episodic Gastroduodenal ulcer (except hemorrhage) (2 sources) Acute gastric ulcer without hemorrhage or perforation; Translations: [Acute gastric ulcer without hemorrhage or perforation] Onset: 08-13-2023 Episodic Genitourinary symptoms and ill-defined conditions (15 sources) Personal history of urinary (tract) infections; [...] Onset: 05-24-2022 Episodic Other aftercare (2 sources) senior living (current) use of aspirin; Translations: [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 ASPIRIN] Onset: 08-11-2017 Episodic Other aftercare (1 source) Other long-term (current) drug therapy; Translations: [OTH WEIGHBRIDGE OPERATOR CURRENT DRUG THERAPY] Onset: 05-22-2022 Episodic Other circulatory disease (1 source) Personal history of transient ischemic attack (TIA), and cerebral infarction without residual deficits; Translations: [Personal history of transient ischemic attack (TIA), and cerebral infarction without residual deficits] Onset: 08-14-2023 Episodic Other connective tissue disease (16 sources) Abnormal posture; Translations: [Abnormal posture] Onset: 09-13-2023 09-13-2023 Episodic Other connective tissue disease (1 source) Abnormal posture; Translations: [Abnormal posture] Onset: 09-13-2023 Episodic Other diseases of kidney and ureters (14 sources) Stricture of ureter; Translations: [Crossing vessel [...] Onset: 12-27-2021 Episodic Other nervous system disorders (15 sources) Hyperreflexia; Translations: [Abnormal reflex] Onset: 09-13-2023 09-13-2023 Episodic Other nervous system disorders (2 sources) Other acute postprocedural pain; Translations: [Other acute postprocedural pain] Onset: 09-17-2023 Episodic Other nervous system disorders (10 sources) Ataxia; Translations: [Ataxia, unspecified] Onset: 05-16-2024 05-16-2024 Episodic Other nervous system disorders (10 sources) Paresthesia; Translations: [Paresthesia of skin] Onset: [...] SPLEEN] Onset: 05-22-2022 Episodic Residual codes; unclassified (15 sources) Memory impairment; Translations: [Other amnesia] Onset: [...] Test Name Value Interpretation Reference Range Facility Urine Cultureon 08-06-2024 Bacteria identified Cx Nom (U) Results may be affected due to sample being received beyond acceptable limits. 15,000 colonies/ml mixed bacterial skin contaminants 2 Days PERFORMED BY: [facility] [place] [address] PATHOLOGIST MANAGING PARTNER ANNE OLGUIN M.D. Normal [facility] Group Comment on above: Performed By: #### C UU #### [facility] [address] [id number] [facility] C Urineon 08-05-2024 Bacteria identified Cx Nom (U) Microbiology PROCEDURE: Urine Culture [R1] SOURCE: U CleanCatch BODY SITE: COLLECTED DATE/TIME: 08/03/2024 19:52 EST RECEIVED DATE/TIME: 08/03/2024 20:22 EST START DATE/TIME: 08/03/2024 20:22 EST FREE TEXT SOURCE: Demarco Beaver DO, DO, Kevin M. FINAL REPORTS Final Report [] Verified Date/Time: 08/05/2024 09:18 EST 2,000 cfu/ml Mixed skin contaminants Performing Locations R1: This test was performed at: [facility], [address] [place] [address], [id number] , [place], [facility] Comment on above: Performed By: #### 2 [id number] #### [facility] [address] [place] [address] CT Head or Brain w/o Contras ton 08-04-2024 CT Head or Brain w/o Contrast Exam Date/Time: 08/03/2024 20:45 EST Reason for Exam: Mental status change, unknown cause;Altered mental status Report IMPRESSION: NO ACUTE INTRACRANIAL PROCESS IDENTIFIED. EXAM: CT Head or Brain w/o Contrast DATE: 08/03/2024 8:40 PM CLINICAL HISTORY: Altered mental status, Mental status change, unknown cause. COMPARISON: 07/26/2024. TECHNIQUE: Routine. All CT scans at this facility use dose modulation, iterative reconstruction, and/or weight based dosing when appropriate to reduce radiation dose to as low as reasonably achievable. FINDINGS: There is no intracranial hemorrhage, mass effect, midline shift, extra-axial collection, evidence of hydrocephalus, skull fracture, or a recent ischemic infarct identified. 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 The mastoid air cells and visualized paranasal sinuses are essentially clear. Ordering Provider: Demarco Beaver FINAL REPORT Dictated: 08/04/2024 9:47 am William Carl MD Signed (Electronic Signature): 08/04/2024 9:47 am Signed by: William Carl MD Transcribed by: OTONIEL Technologist: LEONARDA Ojeda [facility] ANA CRISTINAon 08-03-2024 Anion gap [Moles/Vol] 10 mmol/L Normal 6-16 [facility] Comment on above: Performed By: #### 2 [id number] #### [facility] [address] [place] [address] Calcium [Mass/Vol] 10.9 mg/dL Normal 8.9-11.1 [facility] Comment on above: Performed By: #### 2 [id number] #### [facility] [address] [place] [address] Chloride [Moles/Vol] 105 mmol/L Normal 101-111 [facility] Comment on above: Performed By: #### 2 [id number] #### [facility] [address] [place] [address] CO2 [Moles/Vol] 28 mmol/L Normal 21-31 [facility] Comment on above: Performed By: #### 2 [id number] #### [facility] [address] [place] [address] Creatinine [Mass/Vol] 1.3 mg/dL Normal 0.5-1.3 [facility] Comment on above: Performed By: #### 2 [id number] #### [facility] [address] [place] [address] Glucose [Mass/Vol] 123 mg/dL Normal 55-199 [facility] Comment on above: Performed By: #### 2 [id number] #### [facility] [address] [place] [address] Potassium [Moles/Vol] 3.9 mmol/L Normal 3.5-5.3 [facility] Comment on above: Performed By: #### 2 [id number] #### [facility] [address] [place] [address] Sodium [Moles/Vol] 139 mmol/L Normal 135-145 [facility] Comment on above: Performed By: #### 2 [id number] #### [facility] [address] [place] [address] Urea nitrogen [Mass/Vol] 30 mg/dL High 5-21 [facility] Comment on above: Performed By: #### 2 [id number] #### [facility] [address] [place] [address] Urea nitrogen/Creatinine [Mass ratio] 23 No Units High 10-20 [facility] Comment on above: Performed By: #### 2 [id number] #### [facility] [address] [place] [address] CBC w/ Auto Diffon 5 Basophils/100 WBC (Bld) 1.0 % Normal 0.0-2.0 [facility] Comment on above: Performed By: #### 2 [id number] #### [facility] [address] [place] [address] Basophils/Leukocytes Auto (Bld) [Pure # fraction] 0.1 E9/L Normal 0.0-0.2 [facility] Comment on above: Performed By: #### 2 [id number] #### [facility] [address] [place] [address] Eosinophils (Bld) [#/Vol] 0.5 E9/L Normal 0.0-0.5 [facility] Comment on above: Performed By: #### 2 [id number] #### [facility] [address] [place] [address] Eosinophils/100 WBC (Bld) 6.1 % Normal 0.0-8.0 [facility] Comment on above: Performed By: #### 2 [id number] #### [facility] [address] [place] [address] Erythrocyte distribution width (RBC) [Ratio] 14.9 % High 10.9-14.2 [facility] Comment on above: Performed By: #### 2 [id number] #### [facility] [address] [place] [address] Hematocrit (Bld) [Volume fraction] 40.4 % Normal 34.0-46.0 [facility] Comment on above: Performed By: #### 2 [id number] #### [facility] [address] [place] [address] Hemoglobin (Bld) [Mass/Vol] 13.8 g/dL Normal 12.0-16.0 [facility] Comment on above: Performed By: #### 2 [id number] #### [facility] [address] [place] [address] Lymphocytes (Bld) [#/Vol] 2.2 E9/L Normal 1.0-4.0 [facility] Comment on above: Performed By: #### 2 [id number] #### [facility] [address] [place] [address] Lymphocytes/100 WBC (Bld) 26.2 % Normal 14.0-50.0 [facility] Comment on above: Performed By: #### 2 [id number] #### [facility] [address] [place] [address] MCH (RBC) [Entitic mass] 31.8 pg Normal 27.0-34.0 [facility] Comment on above: Performed By: #### 2 [id number] #### [facility] [address] [place] [address] MCHC (RBC) [Mass/Vol] 34.1 g/dL Normal 31.4-36.0 [facility] Comment on above: Performed By: #### 2 [id number] #### [facility] [address] [place] [address] MCV (RBC) [Entitic vol] 93.4 fL Normal 80.0-100.0 [facility] Comment on above: Performed By: #### 2 [id number] #### [facility] [address] [place] [address] Monocytes (Bld) [#/Vol] 0.9 E9/L Normal 0.2-1.0 [facility] Comment on above: Performed By: #### 2 [id number] #### [facility] [address] [place] [address] Neutrophils (Bld) [#/Vol] 4.6 E9/L Normal 2.0-7.5 [facility] Comment on above: Performed By: #### 2 [id number] #### [facility] [address] [place] [address] Neutrophils/100 WBC (Bld) 55.5 % Normal 36.0-75.0 [facility] Comment on above: Performed By: #### 2 [id number] #### [facility] [address] [place] [address] Platelet 357.0 E9/L Normal 150.0-500.0 [facility] Comment on above: Performed By: #### 2 [id number] #### [facility] [address] [place] [address] Platelet mean volume (Bld) [Entitic vol] 9.0 fL Normal 6.4-10.8 [facility] Comment on above: Performed By: #### 2 [id number] #### [facility] [address] [place] [address] RBC (Bld) [#/Vol] 4.3 E12/L Normal 4.3-5.9 [facility] Comment on above: Performed By: #### 2 [id number] #### [facility] [address] [place] [address] WBC corrected for nucl RBC Auto (Bld) [#/Vol] 8.3 E9/L Normal 4.0-11.0 [facility] Comment on above: Performed By: #### 2 [id number] #### [facility] [address] [place] [address] CHEMISTRYOrdered By: SYSTEM SYSTEM on 08-03-2024 Anion gap [Moles/Vol] 10 mmol/L Normal 6 - 16 mEq/L [facility] Calcium [Mass/Vol] 10.9 mg/dL Normal 8.9 - 11. 1 mg/dL [facility] Chloride [Moles/Vol] 105 mmol/L Normal 101 - 1 11 mmol/L [facility] CO2 [Moles/Vol] 28 mmol/L Normal 21 - 31 mmol/L [facility] Creatinine [Mass/Vol] 1.3 mg/dL Normal 0.5 - 1.3 mg/dL [facility] eGFR 42 mL/min/1.73 m2 Low >=59mL/min / 1.73 m2 [facility] Glucose [Mass/Vol] 123 mg/dL Normal 55 - 199 mg/dL [facility] Potassium [Moles/Vol] 3.9 mmol/L Normal 3.5 - 5.3 mmol/L [facility] Sodium [Moles/Vol] 139 mmol/L Normal 135 - 145 mmol/L [facility] Urea nitrogen [Mass/Vol] 30 mg/dL High 5 - 21 mg/dL [facility] Urea nitrogen/Creatinine [Mass ratio] 23 mg/mg High 10 - 20 [facility] ED Clinical Summaryon 2024 ED Clinical Summary ED Clinical Summary [address] [place] [address] ED Clinical Summary Person Information Name: JUDITH KHAN [facility] Age: 79 Years : 1945 Sex: Female Language: Russian PCP: Rodrick Sams MD Marital Status: Visit Id: Visit Reason: Dysuria; Altered mental status; CONFUSION, UNSTEADY, SNIPPY Speciality: Acuity: 3 Enc Type: Emergency Med Service: Emergency Arrival: 08/03/2024 18:49:35 Discharge: 08/03/2024 21:56:12 LOS: 000 03:07 Checkin: 08/03/2024 18:49:35 Checkout: 08/03/2024 21:56:12 Dispo Type: Home (Routine DC) EVENTS: Event Name Event Status Request Date/Time Start Date/Time Complete Date/Time Arrive Complete 08/03/2024 18:49:35 08/03/2024 18:49:35 08/03/2024 18:49:35 Document Home Meds Request 08/03/2024 18:49:35 Triage Complete 08/03/2024 18:49:35 08/03/2024 19:04:22 08/03/2024 19:04:22 Registration Complete 08/03/2024 18:55:22 08/03/2024 18:55:22 08/03/2024 18:55:22 Reg Complete Request 08/03/2024 18:55:22 Reg Bed Request Complete 08/03/2024 18:55:22 08/03/2024 18:55:22 08/03/2024 18:55:22 EKG Complete 08/03/2024 19:02:59 08/03/2024 19:46:03 Bed Assign Complete 08/03/2024 19:31:36 08/03/2024 19:31:36 08/03/2024 19:31:36 Dr Exam Complete 08/03/2024 19:31:36 08/03/2024 19:43:18 08/03/2024 19:43:18 RN Exam Complete 08/03/2024 19:31:36 08/03/2024 19:50:30 08/03/2024 19:50:30 Registration Request 08/03/2024 19:43:18 Fall Risk Request 08/03/2024 19:50:30 Pending Labs Complete 08/03/2024 19:51:39 08/03/2024 20:14:46 CT Complete 08/03/2024 20:08:52 08/03/2024 20:16:23 08/03/2024 20:45:18 Pending Labs Complete 08/03/2024 20:08:52 08/03/2024 20:46:44 Lab Complete 08/03/2024 20:08:52 08/03/2024 20:46:44 Pending Labs Inlab 08/03/2024 20:14:46 08/03/2024 20:14:46 Lab Inlab 08/03/2024 20:14:46 08/03/2024 20:14:46 Pending Labs Complete 08/03/2024 20:21:46 08/03/2024 20:21:46 08/03/2024 20:46:44 Lab Complete 08/03/2024 20:21:46 08/03/2024 20:21:46 08/03/2024 20:46:44 Pending Labs Complete 08/03/2024 21:11:44 08/03/2024 21:11:44 08/03/2024 21:11:45 Meds Admin Complete 08/03/2024 21:45:33 08/03/2024 21:55:40 Discharge Complete 08/03/2024 21:45:43 08/03/2024 21:56:18 08/03/2024 21:56:18 Transfer Complete 08/03/2024 21:56:18 08/03/2024 21:56:18 08/03/2024 21:56:18 ADDRESS: [address] [place] [id number] PHYS DOC NOTES: MEDICAL INFORMATION: Prescriptions Given: New Medications [id number], [address] [place], [place] [id number], [phone] cephalexin (Keflex 500 mg Cap) 1 Capsules By Mouth every 12 hours for 5 Days. Refills: 0. Medications to Continue with No Changes Other Medications ciprofloxacin (Cipro 500 mg Tab) 1 Tablets By Mouth 2 times a day. Refills: 0. PATIENT EDUCATION INFORMATION: Instructions: Urinary Tract Infection, Adult Follow up: With: Address: When: Rodrick Sams [address] [place] [address], [facility] [address] [id number] Business (1) In 3 days 08/06/2024 Comments: Call the office of your primary care doctor to arrange for follow-up within the above-stated timeframe. Follow-up with your primary care doctor about this ED visit. You should review your labs, imaging, and diagnoses from this ED visit with your primary care physician. There are occasionally non-emergent findings that require additional follow-up after your ED visit. If you were prescribed medications you should discuss possible side-effects and drug interactions with your pharmacist. Call 911 or go to the nearest Emergency Department if you develop any new or worsening symptoms. DIAGNOSIS: Acute UTI Normal [facility] ED Note-Physicianon 08-03-19 ED Note-Physician ED Note-Physician Basic Information Time Seen: Demarco Beaver DO 08/03/2024 19:43 Chief Complaint pt reports AMS for 1-2 days. Mild dysuria. Just finisihed Cipro for UTI, dx in ED last week. no fevers/chills. no n/v. hx of parkinsons. Daughter reports urine is dark and odorous again. History of Present Illness 79-year-old female to the emergency department chief plaint of dysuria. Patient reports that for the last few days she has had increased urgency, frequency and burning with urination. Recently got off a course of Cipro for a UTI. Daughter reports her urine is dark and malodorous. She reports she has had some intermittent confusion. Review of Systems A 10 point review of systems is negative except as noted above. Medical and Surgical History: Reviewed and noted Social history: Lives at home Tobacco: Denies Physical Exam Vitals & Measurements T: 36.3 ???C(Oral) HR: 86(Monitored) RR: 16 BP: 146/79 SpO2: 97% HT: 167 cm WT: 54.2 kg BMI: 19.43 VITALS: I have reviewed the triage vital signs. GENERAL: Well developed, well appearing adult in no acute distress. Sling on the right arm NEURO: Alert and oriented. Moves all extremities. Face is symmetric and expressive. EYES: PERRL. No scleral icterus or conjunctival injection. No discharge. HENT: Normocephalic, atraumatic. Hearing is grossly intact. Nares grossly patent and without discharge. Mucous membranes moist. NECK: No JVD. Patient moves neck without restriction. CARDIO: Rhythm regular. Normal rate. No murmur, rub, or gallop. Pulses equal bilaterally in the upper and lower extremity. No lower extremity edema. PULM: Lungs clear to auscultation in all calderon. No wheezes, rales, or rhonchi. No conversational dyspnea. No splinting, stridor, or accessory muscle use. GI/: Abdomen is soft and non-tender. Normoactive bowel sounds. EXTREMITIES: Symmetric muscle bulk. No joint swelling. No clubbing, cyanosis, or deformity. SKIN: Warm and dry. Normal turgor. No rash or lesions appreciated. PSYCH: Mood, affect, and interaction is appropriate to the setting. Medical Decision Making 79-year-old female to the emergency department chief complaint of intermittent confusion and dysuria. Vital stable, the patient is afebrile. Basic labs, CT head are ordered. Patient agrees with this plan. Lab work reviewed and noted. No significant abnormalities. UA is concerning for urinary tract infection. CT head without acute findings. Discussed findings with the patient and her daughter. They are comfortable plan for discharge home. Keflex was prescribed. First dose was given in the ER. Return precautions were discussed. All questions were answered. The patient was discharged home Assessment/Plan Acute UTI (N39.0: Urinary tract infection, site not specified) Orders: cephalexin, 500 mg = 1 cap(s), Cap, Oral, Once, Stop date 08/03/24 21:45:00 EST, STAT, Start date 08/03/24 21:45:00 EST, 08/03/24 21:45:00 EST cephalexin, 500 mg = 1 cap(s), Oral, q12hr, X 5 day(s), # 10 cap(s), Refills(s) 0, Pharmacy: [id number], 167, cm, 08/03/24 19:04:00 EST, Height/Length Dosing, 54.2, kg, 08/03/24 19:04:00 EST, Weight Dosing Basic Metabolic Panel CBC w/ Auto Diff CT Head or Brain w/o Contrast ED Cardiac Monitoring eGFR Extra Blue Tube Routine Capillary Glucose POC UA with Cult Rflx Urine Culture Medications Administered Given Keflex 500 mg Cap, 500 mg, Oral Disposition Plan Patient Discharge Condition Stable Home Discharge Prescription List Prescriptions Keflex 500 mg Cap, 500 mg= 1 cap(s), Oral, q12hr Follow-up With When Contact Information Rodrick Sams In 3 days 08/06/[address] [place], [place] [id number]- Business (1) Additional Instructions: Call the office of your primary care doctor to arrange for follow-up within the above-stated timeframe. Follow-up with your primary care doctor about this ED visit. You should review your labs, imaging, and diagnoses from this ED visit with your primary care physician. There are occasionally non-emergent findings that require additional follow-up after your ED visit. If you were prescribed medications you should discuss possible side-effects and drug interactions with your pharmacist. Call 911 or go to the nearest Emergency Department if you develop any new or worsening symptoms. Patient Education Urinary Tract Infection, Adult Problem List/Past Medical History Ongoing H/O emphysema High cholesterol Hydronephrosis, right Hypertension Kidney disease Ureteropelvic junction (UPJ) obstruction, right Historical COPD - Chronic obstructive pulmonary disease Hyperlipidemia Hypertension Macular degeneration of both eyes Parkinson's disease Procedure/Surgical History Removal of stent (03/04/2020), Appendectomy, Cataract, Hysterectomy, Splenectomy. Medications Inpatient No active inpatient medications Home alprazolam 1 mg Tab, 1 mg= 1 tab(s), Oral, PRN amLODIPine (more content not included)... Normal [facility] Comment on above: Result Comment: Elec tronically Signed By: Demarco Beaver DO\.br\Date and Time Signed: 08/03/24 22:07 EST ED Patient Summaryon 025 ED Patient Summary ED Patient Summary [address] [address] Patient Discharge Instructions Person Information Name: JUDITH KHAN Age: 79 Years Arrival Date: 08/03/2024 18:49:35 Discharge Diagnosis: Acute UTI Primary Care Physician: Rodrick Sams MD Provider Information Primary Provider: Demarco Beaver DO Advanced Washing Machine Loader:None The exam and treatment you received in the Emergency Department were for an urgent problem and are not intended as complete care. It is important that you follow up with a doctor, nurse practitioner, or physician???s educational assistant for ongoing care. If your symptoms [...] Instructions: With: Address: When: Rodrick Sams [address] [place] [address], [place] [address] Business (1) In 3 days 08/06/2024 Comments: Call the office of your primary care doctor to arrange for follow-up within the above-stated timeframe. Follow-up with your primary care doctor about this ED visit. You should review your labs, imaging, and diagnoses from this ED visit with your primary care physician. There are occasionally non-emergent findings that require additional follow-up after your ED visit. If you were prescribed medications you should discuss possible side-effects and drug interactions with your pharmacist. Call 911 or go to the nearest Emergency Department if you develop any new or worsening symptoms. In the event that this physician does not participate in your insurance network, please consult with your insurance company to find a nearby participating provider. Patient Education Materials: Urinary Tract Infection, Adult A MESSAGE TO ALL PATIENTS REGARDING OPIOIDS PRESCRIPTION OPIOIDS: WHAT YOU NEED TO KNOW Prescription opioids can be used to help relieve [id number]-pb-[id number] pain and are often prescribed following a [...] as well, even when taken as directed: ??? Tolerance???meaning you might need to take more of the medication for the same pain relief ??? Physical dependence???meaning you have symptoms of withdrawal when a medication is stopped ??? Increased sensitivity to pain ??? Constipation ??? Nausea, vomiting, and dry mouth ??? Sleepiness and dizziness ??? Confusion ??? Depression ??? Low levels of testosterone that can result in lower sex drive, energy, and strength ??? Itching and sweating RISKS ARE GREATER WITH: ??? History of drug misuse, substance use disorder, or overdose ??? Mental health conditions (such as depression or anxiety) ??? Sleep apnea ??? Older age (65 years and older) ??? Avoid alcohol while taking prescription opioids. Also, unless specifically advised by your health care provider, medications to avoid include: ??? Benzodiazepines (such as Xanax or Valium) ??? Muscle relaxants (such as Soma or Flexeril) ??? Hypnotics (such as Ambien or Lunesta) ??? Other prescription opioids KNOW YOUR OPTIONS Talk to your health care provider about ways to manage your pain that don???t involve prescription opioids. Some of these options may actually work better and have fewer risks and side effects. Options may include: ??? Pain relievers such as acetaminophen, ibuprofen, and naproxen ??? Some medication that are also used for depression or seizures ??? Physical therapy and exercise ??? Cognitive behavioral therapy, a psychological, goal-directed approach, in which patients learn how to modify physical, behavioral, and emotional triggers of pain and stress. IF YOU ARE PRESCRIBED OPIOIDS FOR PAIN: ??? Never take opioids in greater amounts or more often than prescribed. ??? Follow up with your primary health care provider. o Work together to create a plan on how to manage your pain. o Talk about ways to help manage your pain that don???t involve prescription opioids. o Talk about any and all concerns and side effects. ??? Help prevent misuse and abuse o Never sell or share prescription opioids. o Never use another person???s prescription op (more content not included)... Normal [facility] Extra Blueon 08-03-2024 Tube Collected Plasma Yes Invalid Interpretation Code [facility] Comment on above: Performed By: #### 1 [id number] #### [facility] [address] [place] [address] HEMATOLOGYOrdered By: SYSTEM SYSTEM on 08-03-2024 Basophils/100 WBC (Bld) 1.0 % Normal 0.0 - 2.0 % Remisol Heme Basophils/Leukocytes Auto (Bld) [Pure # fraction] 0.1 E9/L Normal 0.0 - 0.2 E9/L [facility] Heme Eosinophils (Bld) [#/Vol] 0.5 E9/L Normal 0.0 - 0.5 E9/L [facility] Heme Eosinophils/100 WBC (Bld) 6.1 % Normal 0.0 - 8.0 % Rem[facility] Heme Erythrocyte distribution width (RBC) [Ratio] 14.9 % High 10.9 - 14.2 % [facility] Heme Hematocrit (Bld) [Volume fraction] 40.4 % Normal 34.0 - 46.0 % [facility] Heme Hemoglobin (Bld) [Mass/Vol] 13.8 g/dL Normal 12.0 - 16.0 gm/dL [facility] Heme Lymphocytes (Bld) [#/Vol] 2.2 E9/L Normal 1.0 - 4.0 E9/L [facility]e Lymphocytes/100 WBC (Bld) 26.2 % Normal 14.0 - 50.0 % [facility] Heme MCH (RBC) [Entitic mass] 31.8 pg Normal 27.0 - 34.0 pg [facility] Heme MCHC (RBC) [Mass/Vol] 34.1 g/dL Normal 31.4 - 36.0 gm/dL [facility] Heme MCV (RBC) [Entitic vol] 93.4 fL Normal 80.0 - 100.0 fL [facility] Heme Monocytes (Bld) [#/Vol] 0.9 E9/L Normal 0.2 - 1.0 E9/L [facility] Heme Monocytes/100 WBC (Bld) 11.2 % Normal 4.0 - 14.0 % [facility] Heme Neutrophils (Bld) [#/Vol] 4.6 E9/L Normal 2.0 - 7.5 E9/L [facility] Heme Neutrophils/100 WBC (Bld) 55.5 % Normal 36.0 - 75.0 % [facility] Heme Platelet 357.0 E9/L Normal 150.0 - 500.0 E9/L [facility] Heme Platelet mean volume (Bld) [Entitic vol] 9.0 fL Normal 6.4 - 10.8 fL [facility] Heme RBC (Bld) [#/Vol] 4.3 E12/L Normal 4.3 - 5.9 E12/L [facility] Heme WBC corrected for nucl RBC Auto (Bld) [#/Vol] 8.3 E9/L Normal 4.0 - 11.0 E9/L Rem[facility] Heme UA with Cult Rflxon 08-03-19 25 Bilirubin Ql (U) Negative Normal Negative [facility] Comment on above: Performed By: #### 4 [id number] #### [facility] [address] [place] [address] Clarity (U) Clear Normal Clear [facility] Comment on above: Performed By: #### 4 [id number] #### [facility] [address] [place] [address] Color (U) Light-Yellow Normal Yellow [facility] Comment on above: Result Comment: Micr oscopic readings are only performed on those samples that meet specific criteria set forth by [facility]. Performed By: #### 4 [id number] #### [facility] [address] [place] [address] Epithelial cells.squamous Auto (Urine sed) [#/Area] 0-2 Invalid Interpretation Code [facility] Comment on above: Performed By: #### 4 [id number] #### [facility] [address] [place] [address] Glucose Ql (U) Negative Normal Negative [facility] Comment on above: Performed By: #### 4 [id number] #### [facility] [address] [place] [address] Hemoglobin Auto test strip (U) [Mass/Vol] 2+ mg/dL Abnormal Negative [facility] Comment on above: Performed By: #### 4 [id number] #### [facility] [address] [place] [address] Ketones Auto test strip Ql (U) Negative Normal Negative [facility] Comment on above: Performed By: #### 4 [id number] #### [facility] [address] [place] [address] Leukocyte esterase Auto test strip Ql (U) 75 Veronique/uL Abnormal Negative [facility] Comment on above: Performed By: #### 4 [id number] #### [facility] [address] [place] [address] Mucus Auto Ql (U) Negative Normal Negative [facility] Comment on above: Performed By: #### 4 [id number] #### [facility] [address] [place] [address] Nitrite Auto test strip Ql (U) Negative Normal Negative [facility] Comment on above: Performed By: #### 4 [id number] #### [facility] [address] [place] [address] pH (U) 6.0 [pH] Invalid Interpretation Code 5.0-9.0 [facility] Comment on above: Performed By: #### 4 [id number] #### [facility] [address] [place] [address] Protein Ql (U) Negative Normal Negative [facility] Comment on above: Performed By: #### 4 [id number] #### [facility] [address] [place] [address] RBC Ql (U) 31-75 Abnormal 0-3 [facility] Comment on above: Performed By: #### 4 [id number] #### [facility] [address] [place] [address] Specific gravity (U) [Rel density] 1.013 Invalid Interpretation Code 1.005-1.030 [facility] Comment on above: Performed By: #### 4 [id number] #### [facility] [address] [place] [address] Urobilinogen (U) [Mass/Vol] Negative Normal Negative [facility] Comment on above: Performed By: #### 4 [id number] #### [facility] [address] [place] [address] WBC Auto (Urine sed) [#/Area] 6-15 Abnormal 0-5 [facility] Comment on above: Performed By: #### 4 [id number] #### [facility] [address] [place] [address] Type of Urine collection method Clean Catch Normal [facility] Comment on above: Performed By: #### 4 [id number] #### [facility] [address] [place] [address] URINALYSISOrdered By: SYSTEM SYSTEM on 08-03-2024 Bilirubin Ql (U) Negative Normal Negativemg/ dL [facility] UA Auto SS Clarity (U) Clear (08/03/24 7:52 PM) Normal Clear [facility] UA Auto SS Color (U) Light-Yellow 1 (08/03/24 7:52 PM) Normal Yellow [facility] UA Auto SS Comment on above: Interpretive Data: M icroscopic readings are only performed on those samples that meet specific criteria set forth by [facility]. Epithelial cells.squamous Auto (Urine sed) [#/Area] 0-2 graded/HPF Invalid Interpretation Code [facility] Auto SS Glucose Ql (U) Negative Normal Negativemg/ dL [facility] Auto SS Hemoglobin Auto test strip (U) [Mass/Vol] 2+ mg/dL Invalid Interpretation Code Negativemg/ dL [facility] UA Auto SS Ketones Auto test strip Ql (U) Negative Normal Negativemg/ dL [facility] UA Auto SS Leukocyte esterase Auto test strip Ql (U) 75 Veronique/uL Veronique/uL Invalid Interpretation Code NegativeLeu /uL [facility] UA Auto SS Mucus Auto Ql (U) Negative Normal Negativegr a ded/LPF [facility] UA Auto SS Nitrite Auto test strip Ql (U) Negative Normal Negativemg/ dL [facility] UA Auto SS pH (U) 6.0 *NA* (08/03/24 7:52 PM) Invalid Interpretation Code 5.0 - 9.0 [facility] UA Auto SS Protein Ql (U) Negative Normal Negativemg/ dL [facility] UA Auto SS RBC Ql (U) 31-75 graded/HPF Invalid Interpretation Code 0-3graded/H PF [facility] UA Auto SS Specific gravity (U) [Rel density] 1.013 *NA* (08/03/24 7:52 PM) Invalid Interpretation Code 1.005 - 1.030 [facility] UA Auto SS Urobilinogen (U) [Mass/Vol] Negative Normal Negativemg/ dL [facility] UA Auto SS WBC Auto (Urine sed) [#/Area] 6-15 graded/HPF Invalid Interpretation Code 0-5graded/H PF [facility] UA Auto SS URINALYSISOrdered By: Gillian Seay on 08-03-2024 UA Spec Desc Clean Catch (08/03/24 7:52 PM) Normal [facility]A Auto SS eGFRon 08-03-2024 eGFR 42 mL/min/1.73 m2 Low >=59 [facility] Comment on above: Performed By: #### 1 [id number] #### [facility] [address] [place] [address] Fay 07-30-2024 CALEB Telephone (NREUS2) JUDITH KHAN ([id number]) 1945 F Date Time Provider Department 07/30/24 MARIOLA MONTES NREUS2 During your visit today, we recorded the following information about you: Ashwindolores MillerGabbi 07/30/2024 1:[address] Owen office phoned - patient fell an broke her ulna and will need surgery. They would like to discuss with Mariola from PD standpoint if ok for surgery. [phone] She will also fax over a generic form for completion. Can either call or complete form. Lenoshree Benyzachary Gabbi 07/30/2024 2:03 PM Signed Form received via fax. Not really anything for RN's to complete. Sent via [employer] to Mariola. Sabino SwanzacharyGabbi 08/05/2024 7:46 AM Signed Looks like I had faxed to the incorrect number. Refaxed to [facility]. Allergies As of Date: 07/30/2024 Noted Allergy Reaction ALEVE (NAPROXEN SODIUM) 07/02/2013 16 - Unknown SULFA (SULFONAMIDE ANTIBIOTICS) 07/02/2013 10 - Anaphylaxis Date Reviewed: 07/16/2024 Reviewed by: Ga Shaw MA - Fully Assessed Reason for Visit: Surgical Clearance [Other] Prescriptions as of 08/05/2024 - amantadine HCl (SYMMETREL) 100 mg tablet Take 1 tablet by mouth three times a day. With each dose of sinemet. - carbidopa-levodopa CR (SINEMET CR) 25-100 mg per tablet TAKE 1 TABLET BY MOUTH THREE TIMES A DAY AT 7AM, 12PM, AND 5PM - gabapentin (NEURONTIN) 300 mg capsule TAKE 1 CAPSULE BY MOUTH ONCE DAILY X3DAYS, 1 CAPSULE TWICE DAILY X3DAYS THEN 1 CAPSULE 3 TIMES DAILY - rasagiline (AZILECT) 1 mg tab Take by mouth. - KLOR-CON M20 20 mEq tablet Take 1 tablet by mouth every 12 hours. - cyclobenzaprine (FLEXERIL) 10 mg tablet Take 10 mg by mouth. - rOPINIRole (REQUIP) 0.25 mg tablet Reduce [...] once daily. Problem List As Of Date 07/30/2024 Noted Resolved Hypertension [I10] 07/02/2013 Pre-operative cardiovascular exam, new EKG abno*07/02/2013 Hyperlipidemia [E78.5] 06/18/2014 UPJ (ureteropelvic junction) obstruction [N13.5]02/20/2020 Renal stone [N20.0] 02/20/2020 Ureteral stricture [N13.5] 03/23/2020 History of recurrent UTI (urinary tract infecti*03/23/2020 Hyperreflexia [R29.2] 09/13/2023 Abnormal posture [R29.3] 09/13/2023 Neuropathy [G62.9] 09/13/2023 Parkinson's disease (HCC) [G20.A1] 09/13/2023 Memory changes [R41.3] 09/13/2023 Encounter Status:Closed by GABBI LU on 07/30/24 Normal [facility] Urineon 07-28-2024 Bacteria identified Cx Nom (U) Microbiology PROCEDURE: Urine Culture [R1] SOURCE: U Random BODY SITE: COLLECTED DATE/TIME: 07/26/2024 17:10 EST RECEIVED DATE/TIME: 07/26/2024 18:08 EST START DATE/TIME: 07/26/2024 18:08 EST FREE TEXT SOURCE: Jazmin Morfin DO, DO, John FINAL REPORTS Final Report [] Verified Date/Time: 07/28/2024 10:44 EST 4,000 cfu/ml Mixed skin contaminants Performing Locations R1: This test was performed at: [facility], [address] [place] [address], [id number] , [place], Normal [facility] Comment on above: Performed By: #### 2 [id number] #### [facility] [address] [place] [address] Head or Brain w/o Contras ton 07-27-2024 CT Head or Brain w/o Contrast Exam Date/Time: 07/26/2024 16:32 EST Reason for Exam: Delirium;Altered mental status Report IMPRESSION: REMOTE RIGHT BASAL GANGLIA LACUNAR INFARCT. REMOTE LEFT CEREBELLAR INFARCTS. MILD CEREBRAL ATROPHY. CHRONIC ISCHEMIC WHITE MATTER DISEASE. NO ACUTE FINDINGS. CT BRAIN. CONTRAST MEDIUM: WITHOUT CONTRAST.. HISTORY: FALL. SUBSEQUENT EXPRESSIVE APHASIA.. TECHNICAL FACTORS: CT imaging of the brain was obtained and formatted as 5 mm contiguous axial images. 2.5 mm contiguous axial images were obtained through the osseous structures. Sagittal and coronal reconstruction obtained during postprocessing. Comparison: CT brain, July 24, 2024, June 23, 2023 Findings: Extra-axial spaces: Normal. Intracranial hemorrhage: None. Ventricular system: Ventricles mildly enlarged. Sulci mildly prominent.. Basal Cisterns: Normal. Cerebral Parenchyma: Bilateral symmetric periventricular areas decreased attenuation. 3 mm area decreased attenuation right basal ganglia, exerting no mass effect, unchanged. Midline Shift: None. Cerebellum: Left cerebellar hemisphere shows 2 areas decreased attenuation each measuring 5 mm, exerting no mass effect, unchanged. Paranasal sinuses and mastoid air cells: Normal. Visualized Orbits: Normal. Report All CT scans at this facility use dose modulation, iterative reconstruction, and/or weight based dosing when appropriate to reduce radiation dose to as low as reasonably achievable. Ordering Provider: Jazmin Morfin FINAL REPORT Dictated: 07/27/2024 11:05 am Jori Colon MD Signed (Electronic Signature): 07/27/2024 11:05 am Signed by: Jori Colon MD Transcribed by: OTONIEL Technologist: SAJAN Ojeda [facility] XR Chest Single Viewon 07-27 XR Chest Single View Exam Date/Time: 07/26/2024 16:38 EST Reason for Exam: Shortness of breath (SOB) Report IMPRESSION: NO ACUTE CARDIOPULMONARY DISEASE. CLINICAL HISTORY: Shortness of breath (SOB) COMPARISON: 06/23/2023 FINDINGS: Osseous structures intact. Cardiopericardial silhouette normal. Pulmonary vasculature normal. Lungs clear. Ordering Provider: Jazmin Morfin FINAL REPORT Dictated: 07/27/2024 11:38 am Jori Colon MD Signed (Electronic Signature): 07/27/2024 11:38 am Signed by: Jori Colon MD Transcribed by: OTONIEL Technologist: PARISH Ojeda [facility] BMPon 07-26-2024 Anion gap [Moles/Vol] 13 mmol/L Normal 6-16 [facility] Comment on above: Performed By: #### 2 [id number] #### [facility] [address] [place] [address] Calcium [Mass/Vol] 10.8 mg/dL Normal 8.9-11.1 [facility] Comment on above: Performed By: #### 2 [id number] #### [facility] [address] [place] [address] Chloride [Moles/Vol] 103 mmol/L Normal 101-111 [facility] Comment on above: Performed By: #### 2 [id number] #### [facility] [address] [place] [address] CO2 [Moles/Vol] 27 mmol/L Normal 21-31 [facility] Comment on above: Performed By: #### 2 [id number] #### [facility] [address] [place] [address] Creatinine [Mass/Vol] 1.3 mg/dL Normal 0.5-1.3 [facility] Comment on above: Performed By: #### 2 [id number] #### [facility] [address] [place] [address] Glucose [Mass/Vol] 94 mg/dL Normal 55-199 [facility] Comment on above: Performed By: #### 2 [id number] #### [facility] [address] [place] [address] Potassium [Moles/Vol] 4.7 mmol/L Normal 3.5-5.3 [facility] Comment on above: Performed By: #### 2 [id number] #### [facility] [address] [place] [address] Sodium [Moles/Vol] 138 mmol/L Normal 135-145 [facility] Comment on above: Performed By: #### 2 [id number] #### [facility] [address] [place] [address] Urea nitrogen [Mass/Vol] 31 mg/dL High 5-21 [facility] Comment on above: Performed By: #### 2 [id number] #### [facility] [address] [place] [address] Urea nitrogen/Creatinine [Mass ratio] 24 No Units High 10-20 [facility] Comment on above: Performed By: #### 2 [id number] #### [facility] [address] [place] [address] CBC w/ Auto Diffon 5 Basophils/100 WBC (Bld) 1.0 % Normal 0.0-2.0 [facility] Comment on above: Performed By: #### 2 [id number] #### [facility] [address] [place] [address] Basophils/Leukocytes Auto (Bld) [Pure # fraction] 0.1 E9/L Normal 0.0-0.2 [facility] Comment on above: Performed By: #### 2 [id number] #### [facility] [address] [place] [address] Eosinophils (Bld) [#/Vol] 0.7 E9/L High 0.0-0.5 [facility] Comment on above: Performed By: #### 2 [id number] #### [facility] [address] [place] [address] Eosinophils/100 WBC (Bld) 7.4 % Normal 0.0-8.0 [facility] Comment on above: Performed By: #### 2 [id number] #### [facility] [address] [place] [address] Erythrocyte distribution width (RBC) [Ratio] 15.1 % High 10.9-14.2 [facility] Comment on above: Performed By: #### 2 [id number] #### [facility] [address] [place] [address] Hematocrit (Bld) [Volume fraction] 41.5 % Normal 34.0-46.0 [facility] Comment on above: Performed By: #### 2 [id number] #### [facility] [address] [place] [address] Hemoglobin (Bld) [Mass/Vol] 14.0 g/dL Normal 12.0-16.0 [facility] Comment on above: Performed By: #### 2 [id number] #### [facility] [address] [place] [address] Lymphocytes (Bld) [#/Vol] 2.7 E9/L Normal 1.0-4.0 [facility] Comment on above: Performed By: #### 2 [id number] #### [facility] [address] [place] [address] Lymphocytes/100 WBC (Bld) 26.2 % Normal 14.0-50.0 [facility] Comment on above: Performed By: #### 2 [id number] #### [facility] [address] [place] [address] MCH (RBC) [Entitic mass] 31.5 pg Normal 27.0-34.0 [facility] Comment on above: Performed By: #### 2 [id number] #### [facility] [address] [place] [address] MCHC (RBC) [Mass/Vol] 33.7 g/dL Normal 31.4-36.0 [facility] Comment on above: Performed By: #### 2 [id number] #### [facility] [address] [place] [address] MCV (RBC) [Entitic vol] 93.5 fL Normal 80.0-100.0 [facility] Comment on above: Performed By: #### 2 [id number] #### [facility] [address] [place] [address] Monocytes (Bld) [#/Vol] 1.4 E9/L High 0.2-1.0 [facility] Comment on above: Performed By: #### 2 [id number] #### [facility] [address] [place] [address] Neutrophils (Bld) [#/Vol] 5.3 E9/L Normal 2.0-7.5 [facility] Comment on above: Performed By: #### 2 [id number] #### [facility] [address] [place] [address] Neutrophils/100 WBC (Bld) 52.0 % Normal 36.0-75.0 [facility] Comment on above: Performed By: #### 2 [id number] #### [facility] [address] [place] [address] Platelet 300.0 E9/L Normal 150.0-500.0 [facility] Comment on above: Performed By: #### 2 [id number] #### [facility] [address] [place] [address] Platelet mean volume (Bld) [Entitic vol] 9.5 fL Normal 6.4-10.8 [facility] Comment on above: Performed By: #### 2 [id number] #### [facility] [address] [place] [address] RBC (Bld) [#/Vol] 4.4 E12/L Normal 4.3-5.9 [facility] Comment on above: Performed By: #### 2 [id number] #### [facility] [address] [place] [address] WBC corrected for nucl RBC Auto (Bld) [#/Vol] 10.2 E9/L Normal 4.0-11.0 [facility] Comment on above: Result Comment: Evelyne pheral smear review performed. Performed By: #### 2 [id number] #### [facility] [address] [place] [address] CHEMISTRYOrdered By: SYSTEM SYSTEM on 07-26-2024 Troponin HS 10.10 pg/mL Normal 10.10 - 27.10 pg/mL [facility] Comment on above: Interpretive Data: T he 95% CI (Confidence Interval) PPV (Positive Predictive Value) for myocardial infarction in females is 38 pg/mL, in males 51 pg/mL. The results should be used in conjunction with clinical conditions of myocardial infarction. (Access High Sensitivity Troponin I Instructions For Use, [employer], January 2018) Anion gap [Moles/Vol] 13 mmol/L Normal 6 - 16 mEq/L [facility] Calcium [Mass/Vol] 10.8 mg/dL Normal 8.9 - 11. 1 mg/dL [facility] Chloride [Moles/Vol] 103 mmol/L Normal 101 - 1 11 mmol/L [facility] CO2 [Moles/Vol] 27 mmol/L Normal 21 - 31 mmol/L [facility] Creatinine [Mass/Vol] 1.3 mg/dL Normal 0.5 - 1.3 mg/dL [facility] eGFR 42 mL/min/1.73 m2 Low >=59mL/min / 1.73 m2 [facility] Glucose [Mass/Vol] 94 mg/dL Normal 55 - 199 mg/dL [facility] Potassium [Moles/Vol] 4.7 mmol/L Normal 3.5 - 5.3 mmol/L [facility] Sodium [Moles/Vol] 138 mmol/L Normal 135 - 145 mmol/L [facility] Troponin HS 11.10 pg/mL Normal 10.10 - 27.10 pg/mL [facility] Comment on above: Interpretive Data: T he 95% CI (Confidence Interval) PPV (Positive Predictive Value) for myocardial infarction in females is 38 pg/mL, in males 51 pg/mL. The results should be used in conjunction with clinical conditions of myocardial infarction. (Access High Sensitivity Troponin I Instructions For Use, [employer], January 2018) Urea nitrogen [Mass/Vol] 31 mg/dL High 5 - 21 mg/dL [facility] Urea nitrogen/Creatinine [Mass ratio] 24 mg/mg High 10 - 20 [facility] ED Clinical Summaryon 2024 ED Clinical Summary ED Clinical Summary [address] [address] ED Clinical Summary Person Information Name: JUDITH KHAN/[facility] Age: 79 Years : 1945 Sex: Female Language: Russian PCP: Rodrick Sams MD Marital Status: Visit Id: Visit Reason: Hand pain-swelling; Altered mental status; FALL, NO FEELING IN RIGHT FINGERS, DISORIENTED, BALANCE ISSUES. Speciality: Acuity: 2 Enc Type: Emergency Med Service: Emergency Arrival: 07/26/2024 15:51:40 Discharge: 07/26/2024 18:34:11 LOS: 000 02:43 Checkin: 07/26/2024 15:51:40 Checkout: 07/26/2024 18:34:11 Dispo Type: Home (Routine DC) EVENTS: Event Name Event Status Request Date/Time Start Date/Time Complete Date/Time Arrive Complete 07/26/2024 15:51:40 07/26/2024 15:51:40 07/26/2024 15:51:40 Document Home Meds Request 07/26/2024 15:51:40 Triage Complete 07/26/2024 15:51:40 07/26/2024 16:07:22 07/26/2024 16:07:22 Registration Complete 07/26/2024 15:57:55 07/26/2024 15:57:55 07/26/2024 15:57:55 Reg Complete Request 07/26/2024 15:57:55 Reg Bed Request Complete 07/26/2024 15:57:55 07/26/2024 15:57:55 07/26/2024 15:57:55 Bed Assign Complete 07/26/2024 16:01:19 07/26/2024 16:01:19 07/26/2024 16:01:19 Dr Exam Complete 07/26/2024 16:01:19 07/26/2024 16:02:30 07/26/2024 16:02:30 RN Exam Complete 07/26/2024 16:01:19 07/26/2024 17:00:33 07/26/2024 17:00:33 Registration Complete 07/26/2024 16:02:30 07/26/2024 16:18:53 07/26/2024 16:18:53 EKG Complete 07/26/2024 16:05:40 07/26/2024 16:44:51 Meds Admin Cancel 07/26/2024 16:13:19 07/26/2024 16:15:21 Pending Labs Complete 07/26/2024 16:13:19 07/26/2024 18:17:29 Lab Complete 07/26/2024 16:13:19 07/26/2024 16:51:47 CT Complete 07/26/2024 16:13:19 07/26/2024 16:21:09 07/26/2024 16:32:22 X-Ray Complete 07/26/2024 16:13:19 07/26/2024 16:24:51 07/26/2024 16:38:43 Pending Labs Complete 07/26/2024 16:28:35 07/26/2024 16:28:35 07/26/2024 16:51:47 Lab Complete 07/26/2024 16:28:35 07/26/2024 16:28:35 07/26/2024 16:51:47 Wet Read Complete 07/26/2024 16:38:43 07/26/2024 16:47:56 07/26/2024 16:47:56 Fall Risk Request 07/26/2024 17:00:33 Meds Admin Request 07/26/2024 17:05:17 Pending Labs Inlab 07/26/2024 17:25:55 07/26/2024 17:25:55 Lab Inlab 07/26/2024 17:25:55 07/26/2024 17:25:55 Meds Admin Complete 07/26/2024 18:25:55 07/26/2024 18:33:19 Discharge Complete 07/26/2024 18:25:57 07/26/2024 18:34:16 07/26/2024 18:34:16 Transfer Complete 07/26/2024 18:34:16 07/26/2024 18:34:16 07/26/2024 18:34:16 ADDRESS: [address] [facility] [id number] PHYS DOC NOTES: MEDICAL INFORMATION: Prescriptions Given: Medications to Continue Taking That Have Changed [id number], [address] [place], [place] [id number], [phone] START: ciprofloxacin (Cipro 500 mg Tab) 1 Tablets By Mouth 2 times a day. Refills: 0. Other Medications START: ciprofloxacin (Cipro 500 mg Tab) Take 1 tab day prior to procedure and 1 tab day of procdure - afterwards. Refills: 0. Medications to Continue with No Changes Other Medications acetaminophen-oxycodone (Percocet 5 mg-325 mg oral tablet) 1 Tablets By Mouth every 6 hours as needed Pain 8-10 for 3 Days. Refills: 0. alprazolam (alprazolam 1 mg Tab) 1 Tablets By Mouth as needed for anxiety. amlodipine (amLODIPine 10 mg Tab) 1 Tablets By Mouth every day. aspirin (aspirin 81 mg oral tablet) 1 Tablets By Mouth every day. hydrochlorothiazide-lisinopr il (hydrochlorothiazide-lisinop ril 25 mg-20 mg [...] day. PATIENT EDUCATION INFORMATION: Instructions: Follow up: With: Address: When: Rodrick Sams [address] [facility] [facility], [place] [address] Business (1) In 3 days DIAGNOSIS: Altered mental status; Dehydration; UTI (urinary tract infection) Normal [facility] ED Note-Physicianon 07-26-19 ED Note-Physician ED Note-Physician Basic Information Time Seen: Jazmin Morfin DO 07/26/2024 16:02 Chief Complaint Pt had fall on . has had speech and trouble getting words out since then. declining. parkinsons History of Present Illness 79 female presents emergency department for evaluation of altered mental status. Family states that over the last 3 days the patient has had the symptoms where she has had some trouble getting her words out. She did sustain a mechanical fall on and had a right radius fracture and was splinted and seen here did have a negative CT at that time. Despite this patient has been declining at home family states that she has been weak somewhat confused did not really know where she was. She does have history of Parkinson's has been taking Percocet as needed for pain but has not taken any in the last 24 hours. She reports no chest pain difficulty breathing no cough or fevers no nausea vomiting or diarrhea no urinary symptoms. Family also states that she had a urinalysis dropped off at the [facility] on but they do not have the results of this and they are wondering if maybe she has a UTI. No other aggravating or relieving factors no other associated symptoms no other prior treatments or complaints. Family: Reviewed and noncontributory Social: lives at home Review of systems negative unless otherwise specified in the HPI. Physical Exam Vitals & Measurements T: 36.5 ???C(Oral) HR: 89(Peripheral) RR: 18 BP: 167/87 SpO2: 96% HT: 167 cm WT: 54 kg BMI: 19.36 General: The patient appears well and in no apparent distress. Patient is resting comfortably on cart. Skin: Warm, dry, no pallor noted. Head: Normocephalic, atraumatic Neck: No JVD Eye: PERRLA, EOMI ENT: Moist mucus membranes Cardiovascular: Regular rate normal peripheral perfusion Respiratory: No respiratory distress no accessory muscle use no obvious audible wheezing Chest Wall: no deformity Musculoskeletal: There is a large splint on the right upper extremity consistent with stated history of recent fall with fracture and injury. GI: Soft no obvious distention. No rebound or rigidity. No guarding. No tenderness. Neurological: A&O moves all extremities equal strength and symmetry stroke scale score is 0 to the best of my ability at 1600. No obvious dysarthria no aphasia. Somewhat of a limited exam on the right upper extremities patient had recent fracture however I do not appreciate any gross focal neurological deficits. Psychiatric: Cooperative and appropriate Medical Decision Making Workup in the ER has been reviewed and noted. CT read by the radiologist as no acute pathology. Patient has mild elevation of BUN which could be suggestive of some dehydration so therefore she was treated with IV fluids here and educated on this. Patient does have evidence of UTI I did review prior cultures it does look like she had Pseudomonas about 1 year ago therefore will be discharged home on Cipro. I did offer admission to the hospital family declined stating they will keep an eye on her at home and if she gets any worse then they will return to the emergency department. Assessment/Plan Altered mental status (R41.82: Altered mental status, unspecified) Dehydration (E86.0: Dehydration) UTI (urinary tract infection) (N39.0: Urinary tract infection, site not specified) Orders: ciprofloxacin, 500 mg = 1 tab(s), Tab, Oral, Once, Stop date 07/26/24 18:25:00 EST, STAT, Start date 07/26/24 18:25:00 EST, 07/26/24 18:25:00 EST ciprofloxacin, 500 mg = 1 tab(s), Oral, BID, # 14 tab(s), Refills(s) 0, Pharmacy: [facility]/pharmacy #[id number], 167, cm, 07/26/24 16:07:00 EST, Height/Length Dosing, 54, kg, 07/26/24 16:07:00 EST, Weight Dosing Sodium Chloride 0.9% intravenous solution 1,000 mL, 1,000 mL, IV, 1,000 mL/hr, STAT, Start date 07/26/24 17:05:00 EST, 1 hour(s), Total volume (mL): 1,000, 54 kg, 1.58, m2 Basic Metabolic Panel CBC w/ Auto Diff CT Head or Brain w/o Contrast eGFR Troponin 0 Hr. Troponin 1 Hr. UA with Cult Rflx Urine Culture XR Chest Single View Medications Administered Given Sodium Chloride 0.9% IV Michaelle 1000 mL 1,000 mL, 1000 mL, IV Disposition Plan Discharge Prescription List Prescriptions Cipro 500 mg Tab, 500 mg= 1 tab(s), Oral, BID Follow-up With When Contact Information Rodrick Sams In 3 days [address] [facility] [place] [address]- Business (1) Additional Instructions: Problem List/Past Medical History Ongoing H/O emphysema High cholesterol Hydronephrosis, right Hypertension Kidney disease Ureteropelvic junction (UPJ) obstruction, right Historical COPD - Chronic obstructive pulmonary disease Hyperlipidemia Hypertension Macular degeneration of both eyes Parkinson's disease Procedure/Surgical History Removal of stent (03/04/2020), Appendectomy, Cataract, Hysterectomy, Splenectomy. Medications Inpatient No active inpatient medications Home alprazolam 1 mg Tab, 1 (more content not included)... Normal [facility] Comment on above: Result Comment: Elec tronically Signed By: Jazmin Morfin DO\.br\Date and Time Signed: 07/26/24 18:26 EST ED Patient Education Noteon 07-26-2024 ED Patient Education Note ED Patient Education Note Normal [facility] ED Patient Summaryon 025 ED Patient Summary ED Patient Summary [address] [address] Patient Discharge Instructions Person Information Name: JUDITH KHAN Age: 79 Years Arrival Date: 07/26/2024 15:51:40 Discharge Diagnosis: Altered mental status; Dehydration; UTI (urinary tract infection) Primary Care Physician: Rodrick Sams MD Provider Information Primary Provider: Jazmin Morfin DO Advanced Washing Machine Loader:None The exam and treatment you received in the Emergency Department were for an urgent problem and are not intended as complete care. It is important that you follow up with a doctor, nurse practitioner, or physician???s educational assistant for ongoing care. If your symptoms [...] Instructions: With: Address: When: Rodrick Sams [address] [place] [address], [place] [address] Business (1) In 3 days In the event that this physician does not participate in your insurance network, please consult with your insurance company to find a nearby participating provider. Patient Education Materials: A MESSAGE TO ALL PATIENTS REGARDING OPIOIDS PRESCRIPTION OPIOIDS: WHAT YOU NEED TO KNOW Prescription opioids can be used to help relieve njcbfasb-sd-fcgprm pain and are often prescribed following a [...] as well, even when taken as directed: ??? Tolerance???meaning you might need to take more of the medication for the same pain relief ??? Physical dependence???meaning you have symptoms of withdrawal when a medication is stopped ??? Increased sensitivity to pain ??? Constipation ??? Nausea, vomiting, and dry mouth ??? Sleepiness and dizziness ??? Confusion ??? Depression ??? Low levels of testosterone that can result in lower sex drive, energy, and strength ??? Itching and sweating RISKS ARE GREATER WITH: ??? History of drug misuse, substance use disorder, or overdose ??? Mental health conditions (such as depression or anxiety) ??? Sleep apnea ??? Older age (65 years and older) ??? Avoid alcohol while taking prescription opioids. Also, unless specifically advised by your health care provider, medications to avoid include: ??? Benzodiazepines (such as Xanax or Valium) ??? Muscle relaxants (such as Soma or Flexeril) ??? Hypnotics (such as Ambien or Lunesta) ??? Other prescription opioids KNOW YOUR OPTIONS Talk to your health care provider about ways to manage your pain that don???t involve prescription opioids. Some of these options may actually work better and have fewer risks and side effects. Options may include: ??? Pain relievers such as acetaminophen, ibuprofen, and naproxen ??? Some medication that are also used for depression or seizures ??? Physical therapy and exercise ??? Cognitive behavioral therapy, a psychological, goal-directed approach, in which patients learn how to modify physical, behavioral, and emotional triggers of pain and stress. IF YOU ARE PRESCRIBED OPIOIDS FOR PAIN: ??? Never take opioids in greater amounts or more often than prescribed. ??? Follow up with your primary health care provider. o Work together to create a plan on how to manage your pain. o Talk about ways to help manage your pain that don???t involve prescription opioids. o Talk about any and all concerns and side effects. ??? Help prevent misuse and abuse o Never sell or share prescription opioids. o Never use another person???s prescription opioids. ??? Store prescription opioids in a secure place and out of reach of others (this may include visitors, children, friends, and family). ??? Safely dispose of unused prescription opioids: Find your community drug take-back program or your pharmacy mail-back program, or flush them down the toilet, following guidance from the Food and Drug Administration (www.fda.gov/Drugs/Resources ForYou). ??? Visit www.cdc.gov/drugoverdose to learn about the risks of opioids abuse and overdose. ??? If you believe you may be struggling with addiction, tell your health patient centered care specialist and a (more content not included)... Normal [facility] HEMATOLOGYOrdered By: SYSTEM SYSTEM on 07-26-2024 Basophils/100 WBC (Bld) 1.0 % Normal 0.0 - 2.0 % Remisol Heme Basophils/Leukocytes Auto (Bld) [Pure # fraction] 0.1 E9/L Normal 0.0 - 0.2 E9/L Remisol Heme Eosinophils (Bld) [#/Vol] 0.7 E9/L High 0.0 - 0.5 E9/L Remisol Heme Eosinophils/100 WBC (Bld) 7.4 % Normal 0.0 - 8.0 % Remisol Heme Erythrocyte distribution width (RBC) [Ratio] 15.1 % High 10.9 - 14.2 % Remisol Heme Hematocrit (Bld) [Volume fraction] 41.5 % Normal 34.0 - 46.0 % Remisol Heme Hemoglobin (Bld) [Mass/Vol] 14.0 g/dL Normal 12.0 - 16.0 gm/dL Remisol Heme Lymphocytes (Bld) [#/Vol] 2.7 E9/L Normal 1.0 - 4.0 E9/L Remisol Heme Lymphocytes/100 WBC (Bld) 26.2 % Normal 14.0 - 50.0 % Remisol Heme MCH (RBC) [Entitic mass] 31.5 pg Normal 27.0 - 34.0 pg Remisol Heme MCHC (RBC) [Mass/Vol] 33.7 g/dL Normal 31.4 - 36.0 gm/dL Remisol Heme MCV (RBC) [Entitic vol] 93.5 fL Normal 80.0 - 100.0 fL Remisol Heme Monocytes (Bld) [#/Vol] 1.4 E9/L High 0.2 - 1.0 E9/L Remisol Heme Monocytes/100 WBC (Bld) 13.4 % Normal 4.0 - 14.0 % Remisol Heme Neutrophils (Bld) [#/Vol] 5.3 E9/L Normal 2.0 - 7.5 E9/L Remisol Heme Neutrophils/100 WBC (Bld) 52.0 % Normal 36.0 - 75.0 % Remisol Heme Platelet 300.0 E9/L Normal 150.0 - 500.0 E9/L Remisol Heme Platelet mean volume (Bld) [Entitic vol] 9.5 fL Normal 6.4 - 10.8 fL Remisol Heme RBC (Bld) [#/Vol] 4.4 E12/L Normal 4.3 - 5.9 E12/L Rem[facility] Heme WBC corrected for nucl RBC Auto (Bld) [#/Vol] 10.2 E9/L Normal 4.0 - 11.0 E9/L [facility] Comment on above: Result Comment: Evelyne pheral smear review performed. Troponin 0 Hr.on 07-26-2024 Troponin HS 11.10 pg/mL Normal 10.10-27.10 [facility] Comment on above: Result Comment: The 95% CI (Confidence Interval) PPV (Positive Predictive Value) for myocardial infarction in females is 38 pg/mL, in males 51 pg/mL. The results should be used in conjunction with clinical conditions of myocardial infarction. (Access High Sensitivity Troponin I Instructions For Use, Jacques Whitetruffle, January 2018) Performed By: #### 1 [id number] #### [facility] [address] [place] [address] Troponin 1 Hr.on 07-26-2024 Troponin HS 10.10 pg/mL Normal 10.10-27.10 [facility] Comment on above: Order Comment: 1709 Result Comment: The 95% CI (Confidence Interval) PPV (Positive Predictive Value) for myocardial infarction in females is 38 pg/mL, in males 51 pg/mL. The results should be used in conjunction with clinical conditions of myocardial infarction. (Access High Sensitivity Troponin I Instructions For Use, Jacques Ceci, January 2018) Performed By: #### 1 [id number] #### [facility] [address] [place] [address] UA with Cult Rflxon 07-26-19 25 Bilirubin Ql (U) Negative Normal Negative [facility] Comment on above: Performed By: #### 4 [id number] #### [facility] [address] [place] [address] Clarity (U) Clear Normal Clear [facility] Comment on above: Performed By: #### 4 [id number] #### [facility] [address] [place] [address] Color (U) Light-Yellow Normal Yellow [facility] Comment on above: Result Comment: Micr oscopic readings are only performed on those samples that meet specific criteria set forth by [facility]. Performed By: #### 4 [id number] #### [facility] [address] [place] [address] Epithelial cells.squamous Auto (Urine sed) [#/Area] 0-2 Invalid Interpretation Code [facility] Comment on above: Performed By: #### 4 [id number] #### [facility] [address] [place] [address] Glucose Ql (U) Negative Normal Negative [facility] Comment on above: Performed By: #### 4 [id number] #### [facility] [address] [place] [address] Hemoglobin Auto test strip (U) [Mass/Vol] 3+ mg/dL Abnormal Negative [facility] Comment on above: Performed By: #### 4 [id number] #### [facility] [address] [place] [address] Ketones Auto test strip Ql (U) Negative Normal Negative [facility] Comment on above: Performed By: #### 4 [id number] #### [facility] [address] [place] [address] Leukocyte esterase Auto test strip Ql (U) 75 Veronique/uL Abnormal Negative [facility] Comment on above: Performed By: #### 4 [id number] #### [facility] [address] [place] [address] Mucus Auto Ql (U) Negative Normal Negative [facility] Comment on above: Performed By: #### 4 [id number] #### [facility] [address] [place] [address] Nitrite Auto test strip Ql (U) Negative Normal Negative [facility] Comment on above: Performed By: #### 4 [id number] #### [facility] [address] [place] [address] pH (U) 6.5 [pH] Invalid Interpretation Code 5.0-9.0 [facility] Comment on above: Performed By: #### 4 [id number] #### [facility] [address] [place] [address] Protein Ql (U) Negative Normal Negative [facility] Comment on above: Performed By: #### 4 [id number] #### [facility] [address] [place] [address] RBC Ql (U) 4-20 Abnormal 0-3 [facility] Comment on above: Performed By: #### 4 [id number] #### [facility] [address] [place] [address] Specific gravity (U) [Rel density] 1.010 Invalid Interpretation Code 1.005-1.030 [facility] Comment on above: Performed By: #### 4 [id number] #### [facility] [address] [place] [address] Urobilinogen (U) [Mass/Vol] Negative Normal Negative [facility] Comment on above: Performed By: #### 4 [id number] #### [facility] [address] [place] [address] WBC Auto (Urine sed) [#/Area] 0-5 Normal 0-5 [facility] Comment on above: Performed By: #### 4 [id number] #### [facility] [address] [place] [address] Type of Urine collection method Clean Catch Normal [facility] Comment on above: Performed By: #### 4 [id number] #### [facility] [address] [place] [address] URINALYSISOrdered By: SYSTEM SYSTEM on 07-26-2024 Bilirubin Ql (U) Negative Normal Negativemg/ dL [facility] UA Auto SS Clarity (U) Clear (07/26/24 5:10 PM) Normal Clear [facility] UA Auto SS Color (U) Light-Yellow 1 (07/26/24 5:10 PM) Normal Yellow [facility] UA Auto SS Comment on above: Interpretive Data: M icroscopic readings are only performed on those samples that meet specific criteria set forth by [facility]. Epithelial cells.squamous Auto (Urine sed) [#/Area] 0-2 graded/HPF Invalid Interpretation Code [facility] UA Auto SS Glucose Ql (U) Negative Normal Negativemg/ dL [facility] UA Auto SS Hemoglobin Auto test strip (U) [Mass/Vol] 3+ mg/dL Invalid Interpretation Code Negativemg/ dL [facility] UA Auto SS Ketones Auto test strip Ql (U) Negative Normal Negativemg/ dL [facility] UA Auto SS Leukocyte esterase Auto test strip Ql (U) 75 Veronique/uL Veronique/uL Invalid Interpretation Code NegativeLeu /uL [facility] UA Auto SS Mucus Auto Ql (U) Negative Normal Negativegr a ded/LPF [facility] UA Auto SS Nitrite Auto test strip Ql (U) Negative Normal Negativemg/ dL [facility] UA Auto SS pH (U) 6.5 *NA* (07/26/24 5:10 PM) Invalid Interpretation Code 5.0 - 9.0 [facility] UA Auto SS Protein Ql (U) Negative Normal Negativemg/ dL [facility] UA Auto SS RBC Ql (U) 4-20 graded/HPF Invalid Interpretation Code 0-3graded/H PF [facility] UA Auto SS Specific gravity (U) [Rel density] 1.010 *NA* (07/26/24 5:10 PM) Invalid Interpretation Code 1.005 - 1.030 [facility] UA Auto SS Urobilinogen (U) [Mass/Vol] Negative Normal Negativemg/ dL [facility] UA Auto SS WBC Auto (Urine sed) [#/Area] 0-5 graded/HPF Normal 0-5graded/H PF [facility] UA Auto SS URINALYSISOrdered By: Jazmin ballesteros on 07-26-2024 UA Spec Desc Clean Catch (07/26/24 5:10 PM) Normal [facility] UA Auto SS Work Phone: eGFRon 07-26-2024 eGFR 42 mL/min/1.73 m2 Low >=59 [facility] Comment on above: Performed By: #### 1 [id number] #### [facility] [address] [place] [address] CT Head or Brain w/o Contras ton 07-25-2024 CT Head or Brain w/o Contrast Exam Date/Time: 07/24/2024 20:09 EST Reason for Exam: HEAD TRAUMA, MOD-SEVERE;Other (please specify) Report Impression: No acute intracranial process. CT Brain. Contrast medium: without contrast.. History: . Technical factors: CT imaging of the brain was obtained and formatted as 5 mm contiguous axial images. 2.5 mm contiguous axial images were obtained through the osseous structures. Sagittal and coronal reconstruction obtained during postprocessing. Comparison: June 23, 2023. Findings: Extra-axial spaces: Normal. Intracranial hemorrhage: None. Ventricular system: Without anomaly. Basal Cisterns: Normal. Cerebral Parenchyma: Without anomaly. Midline Shift: None. Cerebellum: Normal. Paranasal sinuses and mastoid air cells: Normal. Visualized Orbits: Normal. All CT scans at this facility use dose modulation, iterative reconstruction, and/or weight based dosing when appropriate to reduce radiation dose to as low as reasonably achievable. Report Ordering Provider: Demarco Beaver FINAL REPORT Dictated: 07/25/2024 10:37 am Jori Colon MD Signed (Electronic Signature): 07/25/2024 10:37 am Signed by: Jori Colon MD Transcribed by: OTONIEL Technologist: GURU Normal [facility] CT Spine Cervical w/o Contra ston 07-25-2024 CT Spine Cervical w/o Contrast Exam Date/Time: 07/24/2024 20:09 EST Reason for Exam: NECK TRAUMA, DANGEROUS INJURY MECHANISM;Trauma Report IMPRESSION: NO FRACTURE. NO MALALIGNMENT. MULTILEVEL DEGENERATIVE CHANGE CERVICAL SPINE. LOSS CERVICAL LORDOSIS MAY BE SECONDARY TO MULTILEVEL DEGENERATIVE CHANGE, MUSCLE SPASM, PATIENT POSITIONING. OTHER FINDINGS DISCUSSED. CT CERVICAL SPINE WITHOUT INTRAVENOUS CONTRAST MEDIUM. HISTORY: Fell onto carpet. Receives daily aspirin. Trauma, NECK TRAUMA, DANGEROUS INJURY MECHANISM TECHNICAL FACTORS: CT cervical spine obtained and formatted as 2.5 mm contiguous axial images from skull base to the level of. Sagittal and coronal reconstructions were obtained during postprocessing. No contrast medium was utilized. COMPARISON: None FINDINGS: Cervical vertebral bodies are normal in height and alignment. Loss cervical lordosis. Atlantooccipital articulation maintained. Atlantoaxial interval preserved. Neural foraminal narrowing left C5-C6. Disc space narrowing C3-C4 through C6-C7. Small anterior posterior osteophytes cervical spine. No fractures, dislocations, bone lesions. Limited imaging lung apices without anomaly. Bilateral carotid calcification. 6 mm nodule, left lobe thyroid. All CT scans at this facility use dose modulation, iterative reconstruction, and/or weight based dosing when appropriate to reduce radiation dose to as low as reasonably achievable. Report Ordering Provider: Demarco Beaver FINAL REPORT Dictated: 07/25/2024 10:57 am Jori Colon MD Signed (Electronic Signature): 07/25/2024 10:57 am Signed by: Jori Colon MD Transcribed by: OTONIEL Technologist: GURU Ojeda [facility] XR Wrist 2 Views Righton XR Wrist 2 Views Right Exam Date/Time: 07/24/2024 20:16 EST Reason for Exam: Pain, Traumatic Report IMPRESSION: Acute fractures of the distal radius and ulnar styloid. EXAMINATION/TECHNIQUE: XR Wrist 2 Views Right HISTORY: Fall with right wrist pain. COMPARISON: None RESULT: Acute impacted mildly angulated, mildly displaced, fracture of the distal radius. Acute fracture involving the ulnar styloid. Underlying decreased bone mineral density. No evidence for fracture elsewhere. Alignment is grossly maintained at the wrist within limits of positioning. Soft tissue edema about the wrist. Degenerative changes about the wrist, especially involving the thumb CMC and triscaphe joints. No other significant abnormality. Ordering Provider: Demarco Beaver FINAL REPORT Dictated: 07/25/2024 9:18 am Lauro Moya MD Signed (Electronic Signature): 07/25/2024 9:18 am Signed by: Lauro Moya MD Transcribed by: OTONIEL Technologist: SAJAN Ojeda [facility] ED Clinical Summaryon 2024 ED Clinical Summary ED Clinical Summary [address] [address] ED Clinical Summary Person Information Name: JUDITH KHAN [place] Age: 79 Years : 1945 Sex: Female Language: Russian PCP: Rodrick Sams MD Marital Status: Visit Id: Visit Reason: Fall; Wrist injury - Major; Wrist pain-swelling; FALL Speciality: Acuity: 2 Enc Type: Emergency Med Service: Emergency Arrival: 07/24/2024 18:45:15 Discharge: 07/24/2024 21:56:06 LOS: 000 03:11 Checkin: 07/24/2024 18:45:15 Checkout: 07/24/2024 21:56:06 Dispo Type: Home (Routine DC) EVENTS: Event Name Event Status Request Date/Time Start Date/Time Complete Date/Time Arrive Complete 07/24/2024 18:45:15 07/24/2024 18:45:15 07/24/2024 18:45:15 Document Home Meds Request 07/24/2024 18:45:15 Triage Complete 07/24/2024 18:45:15 07/24/2024 18:51:52 07/24/2024 18:51:52 Bed Assign Complete 07/24/2024 18:47:52 07/24/2024 18:47:52 07/24/2024 18:47:52 Dr Exam Complete 07/24/2024 18:47:52 07/24/2024 18:55:13 07/24/2024 18:55:13 RN Exam Complete 07/24/2024 18:47:52 07/24/2024 19:01:00 07/24/2024 19:01:00 Registration Complete 07/24/2024 18:51:00 07/24/2024 18:51:00 07/24/2024 18:51:00 Reg Complete Request 07/24/2024 18:51:00 Reg Bed Request Complete 07/24/2024 18:51:00 07/24/2024 18:51:00 07/24/2024 18:51:00 Registration Request 07/24/2024 18:55:13 Fall Risk Request 07/24/2024 19:01:01 NPO Request 07/24/2024 19:26:44 RT Request 07/24/2024 19:26:44 Patient Care Request 07/24/2024 19:26:44 CT Complete 07/24/2024 19:26:44 07/24/2024 19:35:38 07/24/2024 20:09:08 X-Ray Cancel 07/24/2024 19:26:44 07/24/2024 19:46:36 07/24/2024 20:16:35 X-Ray Complete 07/24/2024 20:16:34 07/24/2024 20:16:35 07/24/2024 20:16:53 Wet Read Request 07/24/2024 20:16:53 Meds Admin Complete 07/24/2024 20:27:29 07/24/2024 20:37:21 Trauma II Request 07/24/2024 20:30:56 Discharge Complete 07/24/2024 21:32:15 07/24/2024 21:56:11 07/24/2024 21:56:11 Meds Admin Complete 07/24/2024 21:34:37 07/24/2024 21:44:36 Patient Care Request 07/24/2024 21:44:31 Transfer Complete 07/24/2024 21:56:11 07/24/2024 21:56:11 07/24/2024 21:56:11 ADDRESS: [address] [place] [id number] PHYS DOC NOTES: MEDICAL INFORMATION: Prescriptions Given: New Medications [id number], [address] [place], [place] [id number], [phone] acetaminophen-oxycodone (Percocet 5 mg-325 mg oral tablet) 1 Tablets By Mouth every 6 hours as needed Pain 8-10 for 3 Days. Refills: 0. Medications to Continue with No Changes Other [...] Mouth every day. PATIENT EDUCATION INFORMATION: Instructions: Colles Fracture; Cast or Splint Care, Adult Follow up: With: Address: When: Rodrick Sams [address] [place] [address] [place] [id number] Zapproved (1) In 3 days 07/27/2024 Comments: Call the office of your primary care doctor to arrange for follow-up within the above-stated timeframe. Follow-up with your primary care doctor about this ED visit. You should review your labs, imaging, and diagnoses from this ED visit with your primary care physician. There are occasionally non-emergent findings that require additional follow-up after your ED visit. If you were prescribed medications you should discuss possible side-effects and drug interactions with your pharmacist. Call 911 or go to the nearest Emergency Department if you develop any new or worsening symptoms. With: Address: When: Supa Owen [address] [place], [place] [id number] Zapproved (1) In 3 days 07/27/2024 Comments: Call office tomorrow to arrange for short-term follow-up for your distal radius fracture. Take pain medication as prescribed. DIAGNOSIS: Accidental fall; Distal radius fracture; Wrist injury Normal [facility] ED Note-Physicianon 07-24-19 ED Note-Physician ED Note-Physician Basic Information Time Seen: Demarco Beaver DO 07/24/2024 18:55 Chief Complaint pt was at home when she tripped and fell onto carpet. pt lended on right wrist, squad states obvious deformity. pt does take daily asa. denies hitting head, denies LOC, denies head/neck pain. History of Present Illness 79-year-old female to the emergency department with a chief complaint of accidental fall. Patient reports that she tripped at home and fell onto her right wrist. She is unsure if she hit her head. She denies any neck or back pain. No other injuries. She reports some pain about her right wrist. Family called 911. She was noted to have a deformity of the right wrist by EMS. She does take aspirin daily. No other blood thinners. She was given fentanyl en route for pain. Review of Systems A 10 point review of systems is negative except as noted above. Medical and Surgical History: Reviewed and noted Social history: Lives at home Tobacco: Denies Physical Exam Vitals & Measurements T: 36.4 ???C(Oral) HR: 76(Peripheral) RR: 18 BP: 170/88 SpO2: 96% HT: 167 cm WT: 54 kg BMI: 19.36 Primary Survey Airway Intact Lung sounds clear and equal bilaterally Pulses full and equal to femoral, radial, and dorsalis pedis bilaterally Heart regular rate and rhythm Skin warm, dry, pink GCS 15 Movement and sensation intact to all extremities Patient Fully Exposed. Secondary Survey General: GCS 15; Alert HEENT: Head atraumatic; Facial bones stable; Eyes normal inspection, Pupils round, 4-2mm blt; No evidence of oropharyngeal trauma; No blood in the nares or septal hematoma; Tympanic Membranes intact, no hemotympanum or drainage Neck: Normal inspection; no midline cervical tenderness; No tracheal deviation; No JVD Resp: Normal breath sounds, no wheeze or crackles; No chest wall tenderness, crepitus, or subcutaneous emphysema; No visible evidence of chest wall trauma; Chest rise symmetric; No respiratory distress Heart: Heart rate and rhythm regular; Carotid, radial, femoral, dorsalis pedis pulses +2 and equal bilaterally; No Murmurs Abdomen: Soft; Non-tender No ecchymosis or visible wounds to abdominal wall; No distention, guarding, rigidity, or rebound; Pelvis stable, no pain on compression MSK: Tenderness about the distal radius on the right. Otherwise all major joints with normal ROM. No deformities. No bony tenderness. No tenderness or step-offs to palpation of thoracic or lumbar spine; No ecchymosis or wounds to upper or lower back Neuro: Alert and oriented; Sensation intact and symmetric bilaterally; muscle strengths symmetric bilaterally in the upper and lower extremities. Skin: Color normal; No rash; Warm; Dry Procedure Splinting Indication: Both bone fracture of the forearm Contraindication: None Splint type: Sugar-tong Limb was neurovascularly intact before placement. Right sugar-tong custom molded fiberglass splint. Limb is neurovascularly intact after placement. Demarco Beaver, DO Medical Decision Making 79-year-old female to the emergency department chief complaint of right wrist pain. Vital stable, the patient is afebrile. She did have mechanical fall. Given her advanced age CT imaging of the head and neck are ordered. No other traumatic injuries were identified. X-ray imaging of the right wrist. Percocet for pain CT head: No acute CT cervical spine: No acute findings Follow-up with PCP for incidental findings. X-ray imaging shows a minimally displaced distal radius fracture on the right. Minimal deformity. Gentle traction/reduction performed along with splinting. Patient tolerated it well. She will follow-up with orthopedic surgery. Percocet for pain. Return precautions were discussed. All questions were answered. Patient was discharged home. Assessment/Plan Accidental fall (W19.XXXA: Unspecified fall, initial encounter) Wrist injury (S69.90XA: Unspecified injury of unspecified wrist, hand and finger(s), initial encounter) Orders: CT Head or Brain w/o Contrast CT Spine Cervical w/o Contrast ED Cardiac Monitoring NPO Diet Oxygen Therapy Pulse Oximetry Continuous Saline Lock Insert XR Wrist 3+ Views Right Disposition Plan Patient Discharge Condition Stable Discharge Disposition Home Discharge Prescription List Prescriptions Percocet 5 mg-325 mg oral tablet, 1 tab(s), Oral, q6hr, PRN Follow-up With When Contact Information Supa Owne In 3 days 07/27/2024 EST [address] [place] [address]- Business (1) Additional Instructions: Call office tomorrow to arrange for short-term follow-up for your distal radius fracture. Take pain medication as prescribed. 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 Normal [facility] Comment on above: Result Comment: Elec tronically Signed By: Demarco Beaver DO\.br\Date and Time Signed: 07/24/24 21:44 EST ED Patient Summaryon 025 ED Patient Summary ED Patient Summary [facility] [address] [place], [place] [address] Patient Discharge Instructions Person Information Name: JUDITH KHAN Age: 79 Years Arrival Date: 07/24/2024 18:45:15 Discharge Diagnosis: Accidental fall; Distal radius fracture; Wrist injury Primary Care Physician: Rodrick Sams MD Provider Information Primary Provider: Demarco Beaver DO Advanced Washing Machine Loader:Maki The exam and treatment you received in the Emergency Department were for an urgent problem and are not intended as complete care. It is important that you follow up with a doctor, nurse practitioner, or physician???s educational assistant for ongoing care. If your symptoms [...] Follow-up Instructions: With: Address: When: Rodrick Sams [address] [place] [address] [place] [address] Business (1) In 3 days 07/27/2024 Comments: Call the office of your primary care doctor to arrange for follow-up within the above-stated timeframe. Follow-up with your primary care doctor about this ED visit. You should review your labs, imaging, and diagnoses from this ED visit with your primary care physician. There are occasionally non-emergent findings that require additional follow-up after your ED visit. If you were prescribed medications you should discuss possible side-effects and drug interactions with your pharmacist. Call 911 or go to the nearest Emergency Department if you develop any new or worsening symptoms. With: Address: When: Supa Owen [address] [place] [address] Business (1) In 3 days 07/27/2024 Comments: Call office tomorrow to arrange for short-term follow-up for your distal radius fracture. Take pain medication as prescribed. In the event that this physician does not participate in your insurance network, please consult with your insurance company to find a nearby participating provider. Patient Education Materials: Colles Fracture; Cast or Splint Care, Adult A MESSAGE TO ALL PATIENTS REGARDING OPIOIDS PRESCRIPTION OPIOIDS: WHAT YOU NEED TO KNOW Prescription opioids can be used to help relieve tayikvqo-by-bsfxsn pain and are often prescribed following a [...] as well, even when taken as directed: ??? Tolerance???meaning you might need to take more of the medication for the same pain relief ??? Physical dependence???meaning you have symptoms of withdrawal when a medication is stopped ??? Increased sensitivity to pain ??? Constipation ??? Nausea, vomiting, and dry mouth ??? Sleepiness and dizziness ??? Confusion ??? Depression ??? Low levels of testosterone that can result in lower sex drive, energy, and strength ??? Itching and sweating RISKS ARE GREATER WITH: ??? History of drug misuse, substance use disorder, or overdose ??? Mental health conditions (such as depression or anxiety) ??? Sleep apnea ??? Older age (65 years and older) ??? Avoid alcohol while taking prescription opioids. Also, unless specifically advised by your health care provider, medications to avoid include: ??? Benzodiazepines (such as Xanax or Valium) ??? Muscle relaxants (such as Soma or Flexeril) ??? Hypnotics (such as Ambien or Lunesta) ??? Other prescription opioids KNOW YOUR OPTIONS Talk to your health care provider about ways to manage your pain that don???t involve prescription opioids. Some of these options may actually work better and have fewer risks and side effects. Options may include: ??? Pain relievers such as acetaminophen, ibuprofen, and naproxen ??? Some medication that are also used for depression or seizures ??? Physical therapy and exercise ??? Cognitive behavioral therapy, a psychological, goal-directed approach, in which patients learn how to modify physical, behavioral, and emotional triggers of pain and stress. IF YOU ARE PRESCRIBED OPIOIDS FOR PAIN: ??? Never take opioids in greater amounts or more often than prescribed. ??? Follow up with your primary health care provider. liyah russ (more content not included)... Normal [facility] Pre-Arrival Noteon Pre-Arrival Note Pre-Arrival Note Pre-Arrival Summary Name: , [facility] Current Date: 07/24/2024 18:52:03 EST Gender: Female Date of : Age: 79 Pre-Arrival Type: EMS ETA: 07/24/2024 19:03:00 EST Primary Care Physician: Presenting Problem: fall; r wrist deformity, hit head; thinners Pre-Arrival User: Caden SAM, Jacquelyn Fontaine Referring Source: Location: [place] Completion Date/Time: 07/24/2024 18:33:00 [facility] Emergency Department Pre-Hospital Report Form Vital Signs: Pre-Hospital Report: Treatment in Route: Response to Treatment: Misc. Issues: Normal [facility] Urine Cultureon 07-24-2024 Bacteria identified Cx Nom (U) <9,000 colonies/ml mixed bacterial skin contaminants 2 Days PERFORMED BY: [place] [address] PATHOLOGIST MANAGING PARTNER ANNE OLGUIN M.D. Normal [facility] Comment on above: Performed By: #### C UU #### [address] Urine cultureOrdered By: Cristian Sams on 07-24-2024 Bacteria identified Cx Nom (U) Urine culture [facility] CNOVon 07-16-2024 CNOV Office Visit (NREUS2 ) JUDITH KHAN ([id number]) 1945 F Date Time Provider Department 07/16/24 3:00 PM MARIOLA MONTES NREUS2 During your visit today, we recorded the following information about you: Pulse Blood pressure 97/minute 149/71 Ga Shaw MA 07/16/2024 5:27 PM Signed Reason for WROTF Tablet to not get completed: Patient refused because declined all tablets Mariola Montes PA-C 07/16/2024 5:27 PM Signed [facility] - FOLLOW UP EVALUATION Primary [...] 0-Normal. No (more content not included)... 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 Mariola Montes PA-C 02/22/2024 4:46 PM Signed [...] some every day Dry mouth - please coal picker some OTC spray to help Please [...] that she is going to travel to [place] to see her friends, which prior to [...] spontaneous s (more content not included)... Normal [facility] CNOVon 01-14-2024 CNOV Office Visit (NREUS2 ) JUDITH KHAN ([id number]) 1945 F Date Time Provider Department 01/14/24 [...] or a (more content not included)... Normal [facility] Office Visiton 12-20-2023 Follow-up visit [id number] Donato Khan A 1945 Date Provider Department Center 12/20/2023 3848-STEPHENIE PRECIADO SANTA Muñiz [facility] Family History Problem Relation Age of Onset Stroke Mother Stroke Brother Other Mother's Sister Coronary artery disease Mother's Sister Stroke Maternal Grandmother Family Status - Relation Status Age at Mother Brother Mother's Sister Maternal Grandmother Level of Service:38633 [place] OFFICE/OUTPATIENT ESTABLISHED MOD MDM 30 MIN Normal [facility] 36on 12-04-2023 36 . Normal [facility] Office Visiton 11-27-2023 Follow-up visit [id number] Donato Khan en A 1945 Date Provider Department Center 11/27/2023 454-VERENA SHEEHAN [facility] [place] Family History Problem Relation Age of Onset Stroke Mother Stroke Brother Other Mother's Sister Coronary artery disease Mother's Sister Stroke Maternal Grandmother Family Status - Relation Status Age at Mother Brother Mother's Sister Maternal Grandmother Level of Service:51403 [place] POSTOP FOLLOW UP VISIT RELATED TO ORIGINAL PX Reason for Visit and Comments: Post-op [483] - Judith is here today for a post op visit for an incisional hernia, s/p 09/17/23 Delfinainci incisional hernia repair. [facility] CNPKarissa 11-08-2023 CNPN Telephone (NREUS2) BILLJUDITH ([id number]) 1945 F Date Time Provider Department 11/08/23 DAVID VALENTE NREUS2 During your visit today, we recorded the following information about you: Camacho Leonora Miller 11/08/2023 12:01 PM Addendum Jaimee (pt' granddaughter) called to report this week pt's back to experiencing jerking movement. Pt started Amantadine 100 mg week of October 24 and first week medication helped dyskinesia. [phone] 09/13/23 FUJose w/Dulce Mariano RN 11/08/2023 12:57 PM Signed [...] Encounter Statu (more content not included)... Normal [facility] 10-17-2023 [facility] (NREUS2) BILLJUDITH ([id number]) 1945 F Date Time Provider Department 10/17/23 DAVID VALENTE NREUS2 During your visit today, we recorded the following information about you: Gabbi Lu 10/17/2023 10:17 AM Signed Judith phoned for results of MRI done on 10/06. She does not use and would like a return call. [phone] David Valente MD 10/17/2023 10:25 AM Signed [...] Please call daughter Kathie only to discuss [phone]. I also updated all of the phone number in her chart to reflect only Kathie's. Dulce Melgar RN 10/22/2023 10:24 AM Signed Spoke with Kathie. As of 10/17/23 pt was supposed to start 100mg Amantadine daily for increased dyskinesia. Pt has not yet started, they would like the script sent to [facility] in [place] (instead of [facility]). Script sent as requested. Also reviewed [...] mouth once daily. Cosign required by DAVID VAELNTE[[id number]] Medications Discontinued During This Encounter Prescriptions - amantadine HCl (SYMMETREL) 100 mg tablet (Discontinued) Take 1 tablet by mouth once daily. (more content not included)... [facility] Telephone (NREUS2) JUDITH KHAN ([id number]) 1945 F Date Time Provider Department 10/09/23 DAVID VALENTE NREUS2 During your visit today, we recorded the following information about you: Mila Jin 10/09/2023 11:41 AM Signed Patients daughter calling to say there was medication discussed during last OV for dyskinesia. They want to know what it was and if it can be prescribed because she's still having this issue. Kathie Calvillo (Daughter) [phone] (Home Phone) David Valente MD 10/17/2023 9:43 AM Signed Dear Neelima, If she lives alone, I'd prefer the zonisamide. If she lives with someone who can monitor for the possible cognitive side effects of amantadine, I'd prefer amantadine. Thanks! -Neelima Miguel, MIGUEL.GLUER MACHINE SETUP OPERATOR 10/17/2023 5:29 PM Signed Addended by: NEELIMA [...] Status:Closed by GABBI LU on 10/17/23 Normal [facility] MR Cervical spine WO contras ton [...] are otherwise unremarkable. DIVISION OF RADIOLOGY Provider, [facility] 10/07/2023 * * *Final Report* [...] lumbar spine wi (more content not included)... [facility] MR Lumbar spine WO contrasto n [...] the cervical, thor (more content not included)... [facility] Radiology Study observation (narrative) [facility] MR Thoracic spine WO contras ton [...] are otherwise unremarkable. DIVISION OF RADIOLOGY Provider, [facility] - 10/07/2023 * * *Final Report* [...] spine without contrast. (more content not included)... [facility] MRI CERVICAL SPINE WO IVCONo n [...] L4-5 i (more content not included)... Normal [facility] MRI LUMBAR SPINE WO IVCONon 10-07-2023 [...] Anatomic Thoracic/L (more content not included)... Normal [facility] MRI THORACIC SPINE WO IVCONo n [...] the l (more content not included)... Normal [facility] No Panel Informationon 10-06 IMPRESSION: Degenerative [...] and assume there are 5 lumbar-type vertebrae. Broadcast News Producer: [facility] Transcribe Date/Time: Oct 07 2023 12:07P Dictated by : YANETH SALDAÑA MD This examination was interpreted and the report reviewed and electronically signed by: YANETH SALDAÑA MD on Oct 07 2023 12:21PM EST DIVISION OF RADIOLOGY Radiology Study observation (narrative) [facility] No Panel InformationOrdered By: Ccf Provider on 10-07-2023 [facility] Office Visiton 09-26-2023 Follow-up visit [id number] Donato Khan 1945 F Date Provider Department Center 09/26/2023 VERENA TANNER [facility] Family History Problem Relation Age of Onset Stroke Mother Stroke Brother Other Mother's Sister Coronary artery disease Mother's Sister Stroke Maternal Grandmother Family Status - Relation Status Age at Mother Brother Mother's Sister Maternal Grandmother Level of Service:91994 [place] POSTOP FOLLOW UP VISIT RELATED TO ORIGINAL PX Reason for Visit and Comments: Post-op [483] - Judith is here today for a post op visit for an incisional hernia, s/p 09/17/23 DaVinci incisional hernia repair. Normal [facility] 30on 09-18-2023 30 The patient is Moder [...] Free from fall injury Outcome: Progressing Normal [facility] BASIC METABOLIC PANELon 04- Anion gap [Moles/Vol] 11 mmol/L Normal 7-20 [facility] Comment on above: Performed By: #### L [id number] #### [facility] ([facility]) [address] [place] [address] Calcium [Mass/Vol] 9.0 mg/dL Normal 8.6-10.3 [facility] [place] Comment on above: Performed By: #### L [id number] #### [facility] ([facility]) [address] [place] [address] Chloride [Moles/Vol] 107 mmol/L Normal 98-107 [facility] Comment on above: Performed By: #### L [id number] #### [facility] ([facility]) [address] [place] [address] CO2 [Moles/Vol] 25 mmol/L Normal 21-31 [facility] Comment on above: Performed By: #### L [id number] #### [facility] ([facility]) [address] [place] [address] Creatinine [Mass/Vol] 0.93 mg/dL Normal 0.60-1.20 [facility] Comment on above: Performed By: #### L [id number] #### [facility] ([facility]) [address] [place] [address] GLOMERULAR FILTRATION RATE ML/MIN/1.73 SQ M.PREDICTED 63.3 mL/min/1.73m*2 Normal >60.0 [facility] Comment on above: Result Comment: [facility]???s estimated glomerular filtration rate (eGFR) will no [...] individuals. Performed By: #### L [id number] #### [facility] ([facility]) [address] [place] [address] Glucose [Mass/Vol] 112 mg/dL High 70-100 [facility] [place] Comment on above: Performed By: #### L [id number] #### [facility] ([facility]) [address] [place] [address] Potassium [Moles/Vol] 4.5 mmol/L Normal 3.5-5.1 [facility] Comment on above: Performed By: #### L [id number] #### [facility] ([facility]) [address] [place] [address] Sodium [Moles/Vol] 138 mmol/L Normal 136-145 [facility] [place] Comment on above: Performed By: #### L [id number] #### [facility] ([facility]) [address] [place] [address] Urea nitrogen [Mass/Vol] 21 mg/dL Normal 7-25 [facility] Comment on above: Performed By: #### L [id number] #### [facility] (BEAKER) [address] [place] [address] UREA NITROGEN/CREATININE (MASS RATIO) IN SER/PLAS 22.6 Normal [facility] Comment on above: Performed By: #### L [id number] #### [facility] (BEAKER) [address] [place] [address] Anion gap [Moles/Vol] 10 mmol/L Normal 7-20 [facility] Comment on above: Performed By: #### L [id number] #### [facility] (BEAKER) [address] [place] [address] Calcium [Mass/Vol] 9.1 mg/dL Normal 8.6-10.3 [facility] [place] Comment on above: Performed By: #### L [id number] #### [facility] (BEAKER) [address] [place] [address] Chloride [Moles/Vol] 106 mmol/L Normal 98-107 [facility] Comment on above: Performed By: #### L [id number] #### [facility] (BEAKER) [address] [place] [address] CO2 [Moles/Vol] 26 mmol/L Normal 21-31 [facility] Comment on above: Performed By: #### L [id number] #### [facility] (BEAKER) [address] [place] [address] Creatinine [Mass/Vol] 0.96 mg/dL Normal 0.60-1.20 [facility] Comment on above: Performed By: #### L [id number] #### [facility] (BEAKER) [address] [place] [address] GLOMERULAR FILTRATION RATE ML/MIN/1.73 SQ M.PREDICTED 60.9 mL/min/1.73m*2 Normal >60.0 [facility] Comment on above: Result Comment: [facility]???s estimated glomerular filtration rate (eGFR) will no [...] individuals. Performed By: #### L [id number] #### [facility] ([facility]) [address] [facility] [place] [address] Glucose [Mass/Vol] 126 mg/dL High 70-100 [facility] [place] Comment on above: Performed By: #### L [id number] #### [facility] ([facility]) [address] [facility] [place] [address] Potassium [Moles/Vol] 4.2 mmol/L Normal 3.5-5.1 [facility] Comment on above: Performed By: #### L [id number] #### [facility] ([facility]) [address] [place] [address] Sodium [Moles/Vol] 138 mmol/L Normal 136-145 [facility] [place] Comment on above: Performed By: #### L [id number] #### [facility] ([facility]) [address] [place] [address] Urea nitrogen [Mass/Vol] 22 mg/dL Normal 7-25 [facility] Comment on above: Performed By: #### L [id number] #### [facility] ([facility]) [address] [place] [address] UREA NITROGEN/CREATININE (MASS RATIO) IN SER/PLAS 22.9 Normal [facility] Comment on above: Performed By: #### L [id number] #### [facility] ([facility]) [address] [place] [address] CBCon 09-18-2023 Erythrocyte distribution width (RBC) [Ratio] 14.5 % Normal 11.5-15.0 [facility] Comment on above: Performed By: #### L [id number] #### [facility] ([facility]) [address] [facility] [place] [address] ERYTHROCYTE MEAN CORPUSCULAR HEMOGLOBIN CONCENTRATION (G/DL) BY AUTOMATED 32.1 g/dL Normal 32.0-35.0 [facility] Comment on above: Performed By: #### L [id number] #### [facility] ([facility] [address] [place] [address] Hematocrit (Bld) [Volume fraction] 40.5 % Normal 36.0-48.0 [facility] Comment on above: Performed By: #### L [id number] #### [facility] [address] [place] [address] Hemoglobin (Bld) [Mass/Vol] 13.0 g/dL Normal 12.0-15.0 [facility] Comment on above: Performed By: #### L [id number] #### [facility] [address] [place] [address] MCH (RBC) [Entitic mass] 30.8 pg Normal 27.0-33.0 [facility] Comment on above: Performed By: #### L [id number] #### [facility] ([facility]) [address] [place] [address] MCV (RBC) [Entitic vol] 96.0 fL Normal 82.0-98.0 [facility] Comment on above: Performed By: #### L [id number] #### [facility] ([facility]) [address] [place] [address] PLATELETS (10*3/UL) IN BLOOD AUTOMATED COUNT 309 10*3/uL Normal 150-400 [facility] Comment on above: Performed By: #### L [id number] #### [facility] [address] [place] [address] RBC (Bld) [#/Vol] 4.22 10*6/uL Normal 3.80-5.00 [facility] Comment on above: Performed By: #### L [id number] #### [facility] [address] [place] [address] WBC (Bld) [#/Vol] 6.97 10*3/uL Normal 4.00-10.60 [facility] Comment on above: Performed By: #### L [id number] #### [facility] ([facility]) [address] [place] [address] CBC WITH AUTO DIFFERENTIALon 09-18-2023 Erythrocyte distribution width (RBC) [Ratio] 14.4 % Normal 11.5-15.0 [facility] Comment on above: Performed By: #### L [id number] #### [facility] ([facility]) [address] [place] [address] ERYTHROCYTE MEAN CORPUSCULAR HEMOGLOBIN CONCENTRATION (G/DL) BY AUTOMATED 33.0 g/dL Normal 32.0-35.0 [facility] Comment on above: Performed By: #### L [id number] #### [facility] ([facility]) [address] [place] [address] Hematocrit (Bld) [Volume fraction] 39.7 % Normal 36.0-48.0 [facility] Comment on above: Performed By: #### L [id number] #### [facility] ([facility]) [address] [place] [address] Hemoglobin (Bld) [Mass/Vol] 13.1 g/dL Normal 12.0-15.0 [facility] Comment on above: Performed By: #### L [id number] #### [facility] ([facility]) [address] [place] [address] MCH (RBC) [Entitic mass] 31.3 pg Normal 27.0-33.0 [facility] Comment on above: Performed By: #### L [id number] #### [facility] ([facility] [address] [place] [address] MCV (RBC) [Entitic vol] 95.0 fL Normal 82.0-98.0 [facility] Comment on above: Performed By: #### L [id number] #### [facility] ([facility] [address] [place] [address] NRBC (PER 100 WBCS) BY AUTOMATED COUNT 0.0 % Normal 0 [facility] Comment on above: Performed By: #### L [id number] #### [facility] ([facility]) [address] [place] [address] PLATELETS (10*3/UL) IN BLOOD AUTOMATED COUNT 301 10*3/uL Normal 150-400 [facility] Comment on above: Performed By: #### L [id number] #### [facility] ([facility]) [address] [place] [address] RBC (Bld) [#/Vol] 4.18 10*6/uL Normal 3.80-5.00 [facility] Comment on above: Performed By: #### L [id number] #### [facility] ([facility]) [address] [place] [address] WBC (Bld) [#/Vol] 6.49 10*3/uL Normal 4.00-10.60 [facility] Comment on above: Performed By: #### L [id number] #### [facility] ([facility]) [address] [place] [address] MAGNESIUMon 09-18-2023 Magnesium [Mass/Vol] 1.8 mg/dL Low 1.9-2.7 [facility] Comment on above: Performed By: #### L [id number] #### [facility] ([facility]) [address] [place] [address] MANUAL DIFFERENTIALon 2023 BASOPHILS (10*3/UL) IN BLOOD BY CALCULATION 0.01 10*3/uL Normal 0.00-0.20 [facility] Comment on above: Performed By: #### L [id number] ####[facility] ([facility])[address] [place] [address] BASOPHILS/100 LEUKOCYTES IN BLOOD BY AUTOMATED COUNT 0.2 % Normal 0.0-1.0 [facility] Comment on above: Performed By: #### L [id number] ####[facility] ([facility] [place] [address] EOSINOPHILS (10*3/UL) IN BLOOD BY CALCULATION 0.00 10*3/uL Normal 0.00-0.50 [facility] Comment on above: Performed By: #### L [id number] ####[facility] ([facility])[address] [place] [address] EOSINOPHILS/100 LEUKOCYTES IN BLOOD BY AUTOMATED COUNT 0.0 % Normal 0.0-6.0 [facility] Comment on above: Performed By: #### L [id number] ####[facility] ([facility])[address] [place] [address] IMMATURE GRANULOCYTES (10*3/UL) IN BLOOD BY CALCULATION 0.02 10*3/uL Normal 0.00-0.20 [facility] Comment on above: Performed By: #### L [id number] ####[facility] ([facility])[address] [place] [address] IMMATURE GRANULOCYTES/100 LEUKOCYTES IN BLOOD BY AUTOMATED COUNT 0.3 % Normal 0.0-1.0 [facility] Comment on above: Performed By: #### L [id number] ####[facility] ([facility])[address] [place] [address] LYMPHOCYTES (10*3/UL) IN BLOOD BY CALCULATION 0.77 10*3/uL Low 1.20-4.00 [facility] Comment on above: Performed By: #### L [id number] ####[facility] ([facility])[address] [place] [address] LYMPHOCYTES/100 LEUKOCYTES IN BLOOD BY AUTOMATED COUNT 11.9 % Low 20.0-45.0 [facility] Comment on above: Performed By: #### L [id number] ####[facility] ([facility])[address] [place] [address] MONOCYTES (10*3/UL) IN BLOOD BY CALCUATION 0.36 10*3/uL Normal 0.10-1.00 [facility] Comment on above: Performed By: #### L [id number] ####[facility] ([facility]ER)[address] [facility] [address] MONOCYTES/100 LEUKOCYTES IN BLOOD BY AUTOMATED COUNT 5.5 % Normal 5.0-12.0 [facility] Comment on above: Performed By: #### L [id number] ####[facility] ([facility])[address] [place] [address] NEUTROPHILS (10*3/UL) IN BLOOD BY CALCULATION 5.3 10*3/uL Normal 1.6-7.6 [facility] Comment on above: Performed By: #### L [id number] ####[facility] ([facility])[address] [facility] [address] NEUTROPHILS/100 LEUKOCYTES IN BLOOD BY AUTOMATED COUNT 82.1 % High 40.0-72.0 [facility] Comment on above: Performed By: #### L [id number] ####[facility] ([facility])[address] [place] [address] 30on 09-17-2023 30 The patient is Moder ately Stable - Low risk of patient condition declining or worsening The patient's goals for the shift include COMFORT The clinical goals for the shift include VSS Problem: Pain - Adult Goal: Verbalizes/displays adequate comfort level or baseline comfort level Outcome: Progressing Problem: Safety - Adult Goal: Free from fall injury Outcome: Progressing Normal [facility] 30 The patient is Moder ately Stable - Low risk of patient condition declining or worsening The patient's goals for the shift include COMFORT The clinical goals for the shift include VSS Normal [facility] HPon 09-17-2023 HP H&P reviewed. The pa eric was examined and there are no changes to the H&P. Normal [facility] MRSA/MSSA DNA NASALon 2023 MRSA DNA Negative Normal Negative [facility] Comment on above: Order Comment: Testi ng [...] preclude nasal colonization. Performed By: #### L [id number] ####[facility] (BEAKER)[address] [place] [address] MSSA DNA Negative Normal Negative [facility] Comment on above: Order Comment: Testi ng [...] preclude nasal colonization. Performed By: #### L [id number] ####[facility] (BEAKER)[address] [place] [address] OPNOTEon 09-17-2023 OPNOTE DAVINCI INCISIONAL H ERNIA [...] Name Action Serial No. Mesh MESH,SURCIGAL,PROGRIP,[id number] - [id number] Implanted Staff: Leather Grader: Angelic Conrad RN Relief Leather Grader: Gay Barnard RN Scrub Person: Carola Chatman [...] was desuf (more content not included)... Normal [facility] POCT GLUCOSE METER UNSOLICIT ED RESULTSon 09-17-2023 Glucose [Mass/Vol] 71 mg/dL Normal 70-105 [facility] Comment on above: Order Comment: Waive d Testing in the ED is performed under the ED CLIA certificate #[id number]. Result Comment: jhag eman Performed By: #### L [id number] ####[facility] (BEAKER)[address] [place] [address] SUJEY BY IFA WITH REFLEXon Nuclear Ab Ql (S) Negative Normal Negative [facility] Comment on above: Order Comment: Speci men Type: BLOOD SPECIMENOrdering Facility: [facility] Address: [address] [place] [address] Result Comment: Anti -nuclear antibody test is used as an aid in diagnosis of systemic autoimmune diseases. Where positive and clinically warranted, follow-up using disease-specific testing is recommended. Low positive titers are not uncommon with advanced age, certain chronic infections, and malignancies among others. Test methodology: Indirect fluorescence immunoassay (IFA) using HEp-2 cells. Performed By: #### A NAIFR ####[facility] [id number] [place] [id number] [place] CBC W Auto Differential pane l (Bld)on 09-13-2023 Basophils (Bld) [#/Vol] 0.10 10*3/uL <0.11 k/uL [facility] Basophils/100 WBC (Bld) 1.3 % [facility] Differential cell count method Nom (Bld) Auto [facility] Eosinophils (Bld) [#/Vol] 0.67 10*3/uL High <0.46 k/uL [facility] Eosinophils/100 WBC (Bld) 8.4 % [facility] Erythrocyte distribution width (RBC) [Ratio] 14.1 % 11.5 - 15.0 % [facility] Hematocrit (Bld) [Volume fraction] 46.3 % High 36.0 - 46.0 % [facility] Hemoglobin (Bld) [Mass/Vol] 15.3 g/dL 11.5 - 15.5 g/dL [facility] Immature granulocytes (Bld) [#/Vol] <0.10 k/uL [facility] Immature granulocytes/100 WBC (Bld) 0.0 % [facility] Lymphocytes (Bld) [#/Vol] 3.14 10*3/uL 1.00 - 4.00 k/uL [facility] Lymphocytes/100 WBC (Bld) 39.3 % [facility] MCH (RBC) [Entitic mass] 31.4 pg 26.0 - 34.0 pg [facility] MCHC (RBC) [Mass/Vol] 33.0 g/dL 30.5 - 36.0 g/dL [facility] MCV (RBC) [Entitic vol] 94.9 fL 80.0 - 100.0 fL [facility] Monocytes (Bld) [#/Vol] 0.83 10*3/uL <0.87 k/uL [facility] Monocytes/100 WBC (Bld) 10.4 % [facility] Neutrophils (Bld) [#/Vol] 3.26 10*3/uL 1.45 - 7.50 k/uL [facility] Neutrophils/100 WBC (Bld) 40.6 % [facility] Nucleated RBC (Bld) [#/Vol] <0.01 k/uL [facility] Nucleated RBC/100 WBC (Bld) [Ratio] 0.0 /100 WBC [facility] Platelet mean volume (Bld) [Entitic vol] 11.7 fL 9.0 - 12.7 fL [facility] Platelets (Bld) [#/Vol] 296 10*3/uL 150 - 400 k/uL [facility] RBC (Bld) [#/Vol] 4.88 10*6/uL 3.90 - 5.2 0 m/uL [facility] WBC (Bld) [#/Vol] 8.00 10*3/uL 3.70 - 11.00 k/uL [facility] Basophils (Bld) [#/Vol] 0.10 10*3/uL Normal <0.11 [facility] Comment on above: Order Comment: Speci men Type: BLOOD SPECIMENOrdering Facility: [facility] Address: [address] [place] [address] Performed By: #### 5 7021-8, 4537-7 ####[facility] [id number] [place] [address] [place] Basophils/100 WBC (Bld) 1.3 % Normal [facility] Comment on above: Order Comment: Speci men Type: BLOOD SPECIMENOrdering Facility: [facility] Address: [address] [place] [address] Performed By: #### 5 7021-8, 4536-7 ####[facility] [id number] [place] [address] [place] Differential cell count method Nom (Bld) Auto Normal [facility] Comment on above: Order Comment: Speci men Type: BLOOD SPECIMENOrdering Facility: [facility] Address: [address] [place] [address] Performed By: #### 5 7021-8, 4537-7 ####[facility] [id number] [place] [address] [place] Eosinophils (Bld) [#/Vol] 0.67 10*3/uL High <0.46 [facility] Comment on above: Order Comment: Speci men Type: BLOOD SPECIMENOrdering Facility: [facility] Address: [address] [place] [address] Performed By: #### 5 7021-8, 4537-7 ####[facility] [id number] [place] [address] [place] Eosinophils/100 WBC (Bld) 8.4 % Normal [facility] Comment on above: Order Comment: Speci men Type: BLOOD SPECIMENOrdering Facility: [facility] Address: [address] [place] [address] Performed By: #### 5 7021-8, 4536-7 ####[facility] [id number] [place] [address] [place] Erythrocyte distribution width (RBC) [Ratio] 14.1 % Normal 11.5-15.0 [facility] Comment on above: Order Comment: Speci men Type: BLOOD SPECIMENOrdering Facility: [facility] Address: [address] [place] [address] Performed By: #### 5 7021-8, 4537-7 ####[facility] [id number] [place] [address] [place] Hematocrit (Bld) [Volume fraction] 46.3 % High 36.0-46.0 [facility] Comment on above: Order Comment: Speci men Type: BLOOD SPECIMENOrdering Facility: [facility] Address: [address] [place] [address] Performed By: #### 5 7021-8, 4537-7 ####[facility] [id number] [place] [address] [place] Hemoglobin (Bld) [Mass/Vol] 15.3 g/dL Normal 11.5-15.5 [facility] Comment on above: Order Comment: Speci men Type: BLOOD SPECIMENOrdering Facility: [facility] Address: [address] [place] [address] Performed By: #### 5 7021-8, 4537-7 ####[facility] [id number] [place] [address] [place] Immature granulocytes (Bld) [#/Vol] 10*3/uL Normal <0.10 [facility] Comment on above: Order Comment: Speci men Type: BLOOD SPECIMENOrdering Facility: [facility] Address: [address] [place] [address] Performed By: #### 5 7021-8, 4536-7 ####[facility] [id number] [place] [address] [place] Immature granulocytes/100 WBC (Bld) 0.0 % Normal [facility] Comment on above: Order Comment: Speci men Type: BLOOD SPECIMENOrdering Facility: [facility] Address: [address] [place] [address] Performed By: #### 5 7021-8, 4536-7 ####[facility] [id number] [place] [address] [place] Lymphocytes (Bld) [#/Vol] 3.14 10*3/uL Normal 1.00-4.00 [facility] Comment on above: Order Comment: Speci men Type: BLOOD SPECIMENOrdering Facility: [facility] Address: [address] [place] [address] Performed By: #### 5 7021-8, 4536-7 ####[facility] [id number] [place] [address] [place] Lymphocytes/100 WBC (Bld) 39.3 % Normal [facility] Comment on above: Order Comment: Speci men Type: BLOOD SPECIMENOrdering Facility: [facility] Address: [address] [place] [address] Performed By: #### 5 7021-8, 4537-7 ####[facility] [id number] [place] [address] [place] MCH (RBC) [Entitic mass] 31.4 pg Normal 26.0-34.0 [facility] Comment on above: Order Comment: Speci men Type: BLOOD SPECIMENOrdering Facility: [facility] Address: [address] [place] [address] Performed By: #### 5 7021-8, 4537-7 ####[facility] [id number] [place] [address] [place] MCHC (RBC) [Mass/Vol] 33.0 g/dL Normal 30.5-36.0 [facility] Comment on above: Order Comment: Speci men Type: BLOOD SPECIMENOrdering Facility: [facility] Address: [address] [place] [address] Performed By: #### 5 7021-8, 4537-7 ####[facility] [id number] [place] [address] [place] MCV (RBC) [Entitic vol] 94.9 fL Normal 80.0-100.0 [facility] Comment on above: Order Comment: Speci men Type: BLOOD SPECIMENOrdering Facility: [facility] Address: [address] [place] [address] Performed By: #### 5 7021-8, 4537-7 ####[facility] [id number] [place] [address] [place] Monocytes (Bld) [#/Vol] 0.83 10*3/uL Normal <0.87 [facility] Comment on above: Order Comment: Speci men Type: BLOOD SPECIMENOrdering Facility: [facility] Address: [address] [place] [address] Performed By: #### 5 7021-8, 4537-7 ####[facility] [id number] [place] [address] [place] Monocytes/100 WBC (Bld) 10.4 % Normal [facility] Comment on above: Order Comment: Speci men Type: BLOOD SPECIMENOrdering Facility: [facility] Address: [address] [place] [address] Performed By: #### 5 7021-8, 4536-7 ####[facility] [id number] [place] [address] [place] Neutrophils (Bld) [#/Vol] 3.26 10*3/uL Normal 1.45-7.50 [facility] Comment on above: Order Comment: Speci men Type: BLOOD SPECIMENOrdering Facility: [facility] Address: [address] [place] [address] Performed By: #### 5 7021-8, 4536-7 ####[facility] [id number] [place] [address] [place] Neutrophils/100 WBC (Bld) 40.6 % Normal [facility] Comment on above: Order Comment: Speci men Type: BLOOD SPECIMENOrdering Facility: [facility] Address: [address] [place] [address] Performed By: #### 5 7021-8, 4536-7 ####[facility] [id number] [place] [address] [place] Nucleated RBC (Bld) [#/Vol] 10*3/uL Normal <0.01 [facility] Comment on above: Order Comment: Speci men Type: BLOOD SPECIMENOrdering Facility: [facility] Address: [address] [place] [address] Performed By: #### 5 7021-8, 4536-7 ####[facility] [id number] [place] [address] [place] Nucleated RBC/100 WBC (Bld) [Ratio] 0.0 /100 WBC Normal [facility] Comment on above: Order Comment: Speci men Type: BLOOD SPECIMENOrdering Facility: [facility] Address: [address] [place], [place] [address] Performed By: #### 5 7021-8, 7-7 ####[facility] LABIA [id number] [place] [id number] [place] Platelet mean volume (Bld) [Entitic vol] 11.7 fL Normal 9.0-12.7 [facility] Comment on above: Order Comment: Speci men Type: BLOOD SPECIMENOrdering Facility: [facility] Address: [address] [place] [address] Performed By: #### 5 7021-8, 453-7 ####[facility]IA [id number] [place] [address] [place] Platelets (Bld) [#/Vol] 296 10*3/uL Normal 150-400 [facility] Comment on above: Order Comment: Speci men Type: BLOOD SPECIMENOrdering Facility: [facility] Address: [address] [place] [address] Performed By: #### 5 7021-8, 4536-7 ####[facility] LABIA [id number] [place] [address] [place] RBC (Bld) [#/Vol] 4.88 10*6/uL Normal 3.90-5.20 [facility] Comment on above: Order Comment: Speci men Type: BLOOD SPECIMENOrdering Facility: [facility] Address: [address] [place] [address] Performed By: #### 5 7021-8, 7-7 ####[facility] LABIA [id number] [place] [address] [place] WBC (Bld) [#/Vol] 8.00 10*3/uL Normal 3.70-11.00 [facility] Comment on above: Order Comment: Speci men Type: BLOOD SPECIMENOrdering Facility: [facility] Address: [address] [place] [address] Performed By: #### 5 7021-8, 4537-7 ####[facility] LABPERRY [id number] [address] [place] [facility] CNOVon 09-13-2023 CNOV Office Visit (NREUS2 ) JUDITH KHAN ([id number]) 1945 F Date Time Provider Department 09/13/23 [...] and was started on sinemet, in the 90. Then, end of 2022, the sinemet dose [...] Row Office Visit from 09/13/2023 in [facility] T Score 39.8 [facility] [...] tablet by (more content not included)... Normal [facility] metabolic 2000 panelon 09-13-2023 Albumin [Mass/Vol] 4.3 g/dL 3.9 - 4.9 g/dL [facility] ALP [Catalytic activity/Vol] 92 U/L 34 - 123 U/L [facility] ALT [Catalytic activity/Vol] 14 U/L 7 - 38 U/L [facility] Anion gap [Moles/Vol] 13 mmol/L 9 - 18 mmol/L [facility] AST [Catalytic activity/Vol] 24 U/L 13 - 35 U/L [facility] Bilirubin [Mass/Vol] 0.3 mg/dL 0.2 - 1 .3 mg/dL [facility] Calcium [Mass/Vol] 11.0 mg/dL High 8.5 - 10. 2 mg/dL [facility] Chloride [Moles/Vol] 102 mmol/L 97 - 10 5 mmol/L [facility] CO2 [Moles/Vol] 25 mmol/L 22 - 30 mmol/L [facility] Creatinine [Mass/Vol] 0.95 mg/dL 0.58 - 0.96 mg/dL [facility] Estimated Glomerular Filtration Rate 62 mL/min/1.73m >=60 mL/min/1.73 m [facility] Glucose [Mass/Vol] 84 mg/dL 74 - 99 mg/dL [facility] Potassium [Moles/Vol] 4.0 mmol/L 3.7 - 5.1 mmol/L [facility] Protein [Mass/Vol] 6.7 g/dL 6.3 - 8.0 g/dL [facility] Sodium [Moles/Vol] 140 mmol/L 136 - 144 mmol/L [facility] Urea nitrogen [Mass/Vol] 20 mg/dL 7 - 21 mg/dL [facility] Albumin [Mass/Vol] 4.3 g/dL Normal 3.9-4.9 [facility] Comment on above: Order Comment: Speci men Type: BLOOD SPECIMENOrdering Facility: [facility] Address: [address] [place] [address] Performed By: #### 2 4323-8, 6-3 ####[facility] LAB[facility]IA [id number] [place] [address] [place] ALP [Catalytic activity/Vol] 92 U/L Normal 34-123 [facility] Comment on above: Order Comment: Speci men Type: BLOOD SPECIMENOrdering Facility: [facility] Address: [address] [place] [address] Performed By: #### 2 4323-8, 6-3 ####[facility]IA [id number] [place] [address] [place] ALT [Catalytic activity/Vol] 14 U/L Normal 7-38 [facility] Comment on above: Order Comment: Speci men Type: BLOOD SPECIMENOrdering Facility: [facility] Address: [address] [place] [address] Performed By: #### 2 4323-8, 6-3 ####[facility]CLIA [id number] [place] [address] [place] Anion gap [Moles/Vol] 13 mmol/L Normal 9-18 [facility] Comment on above: Order Comment: Speci men Type: BLOOD SPECIMENOrdering Facility: [facility] Address: [address] [place] [id number] Performed By: #### 2 4323-8, 6-3 ####[facility]CLIA [id number] [place] [id number] [place] AST [Catalytic activity/Vol] 24 U/L Normal 13-35 [facility] Comment on above: Order Comment: Speci men Type: BLOOD SPECIMENOrdering Facility: [facility] Address: [address] [place], [place] [address] Performed By: #### 2 4323-8, 3015-3 ####[facility] LABIA [id number] [place] [address] [place] Bilirubin [Mass/Vol] 0.3 mg/dL Normal 0.2-1.3 [facility] Comment on above: Order Comment: Speci men Type: BLOOD SPECIMENOrdering Facility: [facility] Address: [address] [place], [place] [address] Performed By: #### 2 4323-8, 3 ####[facility] LABIA [id number] [place] [address] [place] Calcium [Mass/Vol] 11.0 mg/dL High 8.5-10.2 [facility] Comment on above: Order Comment: Speci men Type: BLOOD SPECIMENOrdering Facility: [facility] Address: [address] [id number] Performed By: #### 2 4323-8, 6-3 ####[facility] LABIA [id number] [place] [id number] [place] Chloride [Moles/Vol] 102 mmol/L Normal 97-105 [facility] Comment on above: Order Comment: Speci men Type: BLOOD SPECIMENOrdering Facility: [facility] Address: [address] [place], [place] [id number] Performed By: #### 2 4323-8, 3015-3 ####[facility] LABCLIA [id number] [place] [id number] [place] CO2 [Moles/Vol] 25 mmol/L Normal 22-30 [facility] Comment on above: Order Comment: Speci men Type: BLOOD SPECIMENOrdering Facility: [facility] Address: [address] [place] [address] Performed By: #### 2 4323-8, 3 ####[facility] LABIA [id number] [place] [address] [place] Creatinine [Mass/Vol] 0.95 mg/dL Normal 0.58-0.96 [facility] Comment on above: Order Comment: Speci men Type: BLOOD SPECIMENOrdering Facility: [facility] Address: [address] [place] [address] Performed By: #### 2 4323-8, 3 ####[facility] LABIA [id number] [place] [address] [place] Creatinine and Glomerular filtration rate.predicted panel (S/P/Bld) 62 mL/min/1.73m??? Normal >=60 [facility] Comment on above: Order Comment: Speci men Type: BLOOD SPECIMENOrdering Facility: [facility] Address: [address] [place] [address] Result Comment: Adrienne mated Glomerular Filtration Rate [...] actual GFR. Performed By: #### 2 4323-8, 3015-3 ####[facility] LABIA [id number] [place] [id number] [place] Glucose [Mass/Vol] 84 mg/dL Normal 74-99 [facility] Comment on above: Order Comment: Speci men Type: BLOOD SPECIMENOrdering Facility: [facility] Address: [address] [place] [address] Result Comment: The Indian Diabetes Association (ADA) provides guidance for cutoff [...] Standards of Medical Care in Diabetes 2016, Indian Diabetes Association. Diabetes Care. 2016.39(Suppl 1). Performed By: #### 2 4323-8, 3015-3 ####[facility] LABCLIA [id number] [place] [address] [place] Potassium [Moles/Vol] 4.0 mmol/L Normal 3.7-5.1 [facility] Comment on above: Order Comment: Mery goodwin Type: BLOOD SPECIMENOrdering Facility: [facility] Address: [address] [place] [address] Performed By: #### 2 4323-8, 3015-3 ####[facility] LABCLIA [id number] [place] [address] [place] Protein [Mass/Vol] 6.7 g/dL Normal 6.3-8.0 [facility] Comment on above: Order Comment: Speci men Type: BLOOD SPECIMENOrdering Facility: [facility] Address: [address] [place] [address] Performed By: #### 2 4323-8, 6-3 ####[facility] LABCLIA [id number] [place] [address] [place] Sodium [Moles/Vol] 140 mmol/L Normal 136-144 [facility] Comment on above: Order Comment: Speci men Type: BLOOD SPECIMENOrdering Facility: [facility] Address: [address] [place] [address] Performed By: #### 2 4323-8, 3016-3 ####[facility] LABCLIA [id number] [place] [address] [place] Urea nitrogen [Mass/Vol] 20 mg/dL Normal 7-21 [facility] Comment on above: Order Comment: Speci men Type: BLOOD SPECIMENOrdering Facility: [facility] Address: [address] [place] [address] Performed By: #### 2 4323-8, 3016-3 ####[facility] LABCLIA [id number] [place] [address] [place] ESR Westergren method (Bld) [Velocity]on 09-13-2023 ESR (Bld) [Velocity] 10 mm/h 0 - 20 mm/hr [facility] ESR (Bld) [Velocity] 10 mm/h Normal 0-20 [facility] Comment on above: Order Comment: Speci men Type: BLOOD SPECIMENOrdering Facility: [facility] Address: [address] [place] [address] Performed By: #### 5 7021-8, 4537-7 ####[facility] LABIA [id number] [place] [address] [place] FOLATE SERUMon 09-13-2023 Folate [Mass/Vol] >4.7 ng/mL [facility] Folate SerPl-mCncon 09-13-19 Folate [Mass/Vol] ng/mL Normal >4.7 [facility] Comment on above: Order Comment: Speci men Type: BLOOD SPECIMENOrdering Facility: [facility] Address: [address] [place] [address] Result Comment: A re sult of > 20 ng/mL is not necessarily indicative of a pathologic or treatable condition: it reflects a limitation of the test methodology. Assay reference range: 4.8 to 24.2 ng/mL. Suitable for detection of folate deficiency. Reference: Folate III (Folate III) [package insert V 1.0 Russian]. [facility], [place], [place]: April 2015. Performed By: #### 2 885-2, 2132-9, 2284-8 ####[facility] LABIA [id number] [place] [address] [place] HOMOCYSTEINEon 09-13-2023 Homocysteine [Moles/Vol] 11.3 umol/L <15.1 umol/L [facility] HbA1c (Bld)on 09-13-2023 Average glucose Estimated from glycated hemoglobin (Bld) [Mass/Vol] 103 mg/dL [facility] HbA1c (Bld) [Mass fraction] 5.2 % 4.3 - 5.6 % [facility] Average glucose Estimated from glycated hemoglobin (Bld) [Mass/Vol] 103 mg/dL Normal [facility] Comment on above: Order Comment: Speci men Type: BLOOD SPECIMENOrdering Facility: [facility] Address: [address] [place] [address] Result Comment: eAG: (Estimated average glucose) is a calculated value from HgbA1c and is automobile sales representative of the average blood glucose level in the last 2-3 month period. Performed By: #### 5 5454-3 ####[facility] LABIA [id number] [place] [address] [place] HbA1c (Bld) [Mass fraction] 5.2 % Normal 4.3-5.6 [facility] Comment on above: Order Comment: Mery [facility] Type: BLOOD SPECIMENOrdering Facility: [facility] Address: [address] [place] [address] Result Comment: Amer ican Diabetes Association guidelines indicate that patients with HgbA1c in the range 5.7-6.4% are at increased risk for development of diabetes, and intervention by lifestyle modification may be beneficial. HgbA1c greater or equal to 6.5% is considered diagnostic of diabetes. Performed By: #### 5 5454-3 ####[facility] LABIA [id number] [place] [address] [place] Hcys SerPl-sCncon 09-13-2023 Homocysteine [Moles/Vol] 11.3 umol/L Normal <15.1 [facility] Comment on above: Order Comment: Speci men Type: BLOOD SPECIMENOrdering Facility: [facility] Address: [address] [place] [address] Performed By: #### 1 3965-9 ####[facility] LABIA [id number] [place] [address] [place] Methylmalonate SerPl-sCncon 09-13-2023 Methylmalonate [Moles/Vol] 0.19 umol/L Normal <=0.40 [facility] Comment on above: Order Comment: [facility] Type: BLOOD SPECIMENOrdering Facility: [facility] Address: [address] [place] [address] Result Comment: This test was developed and its performance characteristics determined by [facility]'s Dale JRatna [facility] Pathology and Laboratory Medicine [place] (-PLMI). It has not been cleared or approved by the FDA. RT-PLNV is regulated under CLIA as qualified to perform high-complexity testing. This test is used for clinical purposes. It should not be regarded as investigational or for research. Performed By: #### 1 3964-2 ####[facility] [id number] [place] [address] [place] PROTEIN ELECTROPHORESIS SERU M (P)on 09-13-2023 Albumin [Mass/Vol] 4.07 g/dL Normal 3.43-5.41 [facility] Comment on above: Order Comment: Speci men Type: BLOOD SPECIMENOrdering Facility: [facility] Address: [address] [place] [address] Performed By: #### L [id number] ####[facility] [id number] [place] [address] [place] Alpha 1 globulin Elph [Mass/Vol] 0.37 g/dL Normal 0.18-0.43 [facility] Comment on above: Order Comment: Speci men Type: BLOOD SPECIMENOrdering Facility: [facility] Address: [address] [place] [address] Performed By: #### L [id number] ####[facility] LABCLIA [id number] [place] [address] [place] Alpha 2 globulin Elph [Mass/Vol] 0.70 g/dL Normal 0.42-0.98 [facility] Comment on above: Order Comment: Speci men Type: BLOOD SPECIMENOrdering Facility: [facility] Address: [address] [place] [address] Performed By: #### L [id number] ####[facility] LABIA [id number] [place] [address] [place] Beta globulin Elph [Mass/Vol] 0.69 g/dL Normal 0.61-1.17 [facility] Comment on above: Order Comment: Speci men Type: BLOOD SPECIMENOrdering Facility: [facility] Address: [address] [place] [address] Performed By: #### L [id number] ####[facility] LABIA [id number] [place] [address] [place] Gamma globulin Elph [Mass/Vol] 0.57 g/dL Normal 0.53-1.51 [facility] Comment on above: Order Comment: Speci men Type: BLOOD SPECIMENOrdering Facility: [facility] Address: [address] [place] [address] Performed By: #### L [id number] ####[facility] LABIA [id number] [place] [address] [place] M-PROTEIN LOCATION Normal [facility] Comment on above: Order Comment: Speci men Type: BLOOD SPECIMENOrdering Facility: [facility] Address: [address] [place] [address] Result Comment: Not Applicable. Performed By: #### L [id number] ####[facility] LABIA [id number] [place] [address] [place] Protein Fractions [Interp] No definitive M protein is identified on protein electrophoresis. Normal No definitive M protein is identified on protein electrophor esis. [facility] Comment on above: Order Comment: Speci men Type: BLOOD SPECIMENOrdering Facility: [facility] Address: [address] [place] [address] Performed By: #### L [id number] ####[facility] [id number] [place] [address] [place] Protein.monoclonal Elph [Mass/Vol] 0.00 g/dL Normal <=0.00 [facility] Comment on above: Order Comment: Speci men Type: BLOOD SPECIMENOrdering Facility: [facility] Address: [address] [place] [address] Performed By: #### L [id number] ####[facility] [id number] [place] [address] [place] SPE STAFF REVIEW Reviewed by Dr. Lelo Santiago MD [facility] Comment on above: Order Comment: Speci men Type: BLOOD SPECIMENOrdering Facility: [facility] Address: [address] [place] [address] Performed By: #### L [id number] ####[facility] LABIA [id number] [place] [address] [place] Prot SerPl-mCncon 09-13-2023 Protein [Mass/Vol] 6.4 g/dL Normal 6.3-8.0 [facility] Comment on above: Order Comment: Speci men Type: BLOOD SPECIMENOrdering Facility: [facility] Address: [address] [place] [address] Performed By: #### 2 885-2, 2132-9, 2284-8 ####[facility] LABIA [id number] [place] [id number] [place] Prot Ur-mCncon 09-13-2023 Protein (U) [Mass/Vol] 6 mg/dL Normal 0-20 [facility] Comment on above: Order Comment: Speci men Type: URINE SPECIMENOrdering Facility: [facility] Address: [address] [place] [address] Performed By: #### 2 888-6 ####[facility] LABIA [id number] [place] [address] [place] TSH BLDon 09-13-2023 TSH Qn 0.911 m[IU]/L 0.270 - 4.200 mIU/L [facility] TSH SerPl-aCncon 09-13-2023 TSH Qn 0.911 m[IU]/L Normal 0.270-4.200 [facility] Comment on above: Order Comment: Speci men Type: BLOOD SPECIMENOrdering Facility: [facility] Address: [address] [place] [address] Performed By: #### 2 4323-8, 3016-3 ####[facility] [id number] [place] [address] [place] URINE PROTEIN ELECTROPHORESI S RANDOM (P)on 09-13-2023 Albumin Elph (U) [Mass fraction] 42.54 % Normal [facility] Comment on above: Order Comment: Speci men Type: URINE SPECIMENOrdering Facility: [facility] Address: [address] [place] [address] Performed By: #### L [id number] ####[facility] [id number] [place] [address] [place] Alpha 1 globulin Elph (U) [Mass fraction] 5.38 % Normal [facility] Comment on above: Order Comment: Speci men Type: URINE SPECIMENOrdering Facility: [facility] Address: [address] [place] [address] Performed By: #### L [id number] ####[facility] LABCLIA [id number] [place] [address] [place] Alpha 2 globulin Elph (U) [Mass fraction] 16.91 % Normal [facility] Comment on above: Order Comment: Speci men Type: URINE SPECIMENOrdering Facility: [facility] Address: [address] [place] [address] Performed By: #### L [id number] ####[facility] LABCLIA [id number] [place] [address] [place] Beta globulin Elph (U) [Mass fraction] 24.59 % Normal [facility] Comment on above: Order Comment: Speci men Type: URINE SPECIMENOrdering Facility: [facility] Address: [address] [place] [address] Performed By: #### L [id number] ####[facility] LABCLIA [id number] [place] [address] [place] Gamma globulin Elph (U) [Mass fraction] 10.58 % Normal [facility] Comment on above: Order Comment: Speci men Type: URINE SPECIMENOrdering Facility: [facility] Address: [address] [place] [address] Performed By: #### L [id number] ####[facility] LABIA [id number] [place] [address] [place] INTERPRETATION COMMENT FOR PROTEIN ELECTROPHORESIS The absence of M-protein on urine protein electrophoresis does not entirely exclude the presence of monoclonal gammopathy in urine. Monoclonal protein analysis (immunofixation), a more definitive test to exclude monoclonal gammopathy, may be requested on this specimen if clinically indicated. Normal [facility] Comment on above: Order Comment: Speci men Type: URINE SPECIMENOrdering Facility: [facility] Address: [address] [place] [address] Performed By: #### L [id number] ####[facility] LABCLIA [id number] [place] [address] [place] Protein Fractions Elph Brandt (U) [Interp] No definitive M protein is identified on protein electrophoresis. Normal No definitive M protein is identified on protein electrophor esis. [facility] Comment on above: Order Comment: Speci men Type: URINE SPECIMENOrdering Facility: [facility] Address: [address] [place] [address] Performed By: #### L [id number] ####[facility] LABIA [id number] [address] [facility] STAFF REVIEW (URINE ELECTRO) Reviewed by Dr. Richard Santiago MD [facility] Comment on above: Order Comment: Speci men Type: URINE SPECIMENOrdering Facility: [facility] Address: [address] [place] [address] Performed By: #### L [id number] ####[facility] [id number] [place] [address] [place] VITAMIN B12 BLOODon 09-13-19 24 Cobalamin (Vitamin B12) [Mass/Vol] 939 pg/mL 232 - 1,245 pg/mL [facility] Vit B12 SerPl-mCncon 024 Cobalamin (Vitamin B12) [Mass/Vol] 939 pg/mL Normal 232-1245 [facility] Comment on above: Order Comment: Speci men Type: BLOOD SPECIMENOrdering Facility: [facility] Address: [address] [place] [address] Performed By: #### 2 885-2, 2132-9, 2284-8 ####[facility] LABIA [id number] [place] [address] [place] Orders Onlyon 09-11-2023 Orders Only [id number] Donato Khan 1945 F Date Provider Department Center 09/11/2023 [facility]-VERENA SHEEHAN [facility] SURG [facility] Family History Problem Relation Age of Onset Stroke Mother Stroke Brother Other Mother's Sister Coronary artery disease Mother's Sister Stroke Maternal Grandmother Family Status - Relation Status Age at Mother Brother Mother's Sister Maternal Grandmother [facility] [id number] 09-10-2023 [id number] PT HOLDING ASPIRIN P ER DR SHEEHAN ON 09/09 MEDICATIONS TO TAKE DAY OF SURGERY WITH SIP OF WATER XANAX AMLODIPINE GABAPENTIN ISOSORBIDE PROTONIX PT DAUGHTER AGREES TO TAKE PT TO [facility] FOR LABS ON 09/10 LAB ORDERS FAXED TO [phone] HOLD VITAMINS AND SUPPLEMENTS 5 DAYS PRIOR TO PROCEDURE HOLD ALL ANTI INFLAMMATORIES ETC:MOTRIN, ADVIL, ALEVE, FOR 5 DAYS PRIOR TO PROCEDURE IF YOU ARE GOING HOME AFTER YOUR SURGERY OR PROCEDURE, FOR YOUR SAFETY, YOUR SURGERY WILL BE CANCELLED IF BOTH OF THE FOLLOWING ARE NOT AVAILABLE: 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 Do not wear perfume, make-up, nail belarusian, or lotions on the day of your [...] need to make any changes, please call [phone]. Notify your surgeon if you develop any illness such as a cold, cough, fever, sore throat or vomiting between now and your surgery. Thank you for entrusting us with your care. [facility] Surgical Services Team Normal [facility] Telephoneon 09-10-2023 Telephone [id number] Donato Khan en A 1945 F Date Provider Department Center 09/10/2023 KERWIN ABDI [facility] SURG [place] Family History Problem Relation Age of Onset Stroke Mother Stroke Brother Other Mother's Sister Coronary artery disease Mother's Sister Stroke Maternal Grandmother Family Status - Relation Status Age at Mother Brother Mother's Sister Maternal Grandmother Reason for Visit and Comments: telephone [Other] Normal [facility] Documentationon 08-27-2023 Documentation [id number] Donato Khan en A 1945 Date Provider Department Center 08/27/2023 MILA SORIA [facility] Family History Problem Relation Age of Onset Stroke Mother Stroke Brother Other Mother's Sister Coronary artery disease Mother's Sister Stroke Maternal Grandmother Family Status - Relation Status Age at Mother Brother Mother's Sister Maternal Grandmother [facility] HPon 08-22-2023 HP Subjective Patient ID: Judith [...] and without perforation [K25.7] Procedures EGD (ESOPHAGOGASTRODUODENOSCOPY) 85276 - [place] ESOPHAGOGASTRODUODENOSCOPY [facility] * Verena Sheehan - Primary Procedure Summary Anesthesia: Monitor Anesthesia Care ASA: III Estimated Blood Loss: Minimal Total IV Fluids: 500 mL Drains: * None in log * Staff: Leather Grader: Jian Kat RN Scrub Person: Eva Zambrano [...] NOTE Patient: Judith Khan : 1945 Facility: [facility] Referring/PCP: Rodrick Sams MD Procedure: Esophagogastroduodenoscopy [...] 1. -Follow up with me. 2. -PPIs [phone] pager [phone] Assessment/Plan Incisional hernia Gastric ulcer Robotic incisional hernia repair with mesh Cardiac clearance PPIs No diagnosis found. No orders of the defined types were placed in this encounter. No results found for this or any previous visit (from the past 36 hour(s)). No follow-ups on file. Normal [facility] Office Visiton 08-22-2023 Follow-up visit [id number] Donato Khan 1945 F Date Provider Department Center 08/22/2023 [facility]-VERENA SHEEHAN [facility] SURG [place] Family History Problem Relation Age of Onset Stroke Mother Stroke Brother Other Mother's Sister Coronary artery disease Mother's Sister Stroke Maternal Grandmother Family Status - Relation Status Age at Mother Brother Mother's Sister Maternal Grandmother Level of Service:16441 [place] OFFICE/OUTPATIENT ESTABLISHED MOD MDM 30 MIN Reason for Visit and Comments: Post-op [483] - Judith is here today for a post op visit for a hiatal hernia, s/p 08/13/[address] Normal [facility] MR head/brain wo/w conon MR head/brain wo/w con [facility] Main [place] [address] [place] [address] MRI Report Signed Patient: Judith Khan MR#: [id number] : 1945 Acct:[id number] Age/Sex: 78 / F ADM Date: 08/14/23 Loc: [facility] Room: Type: [facility] Attending Dr: Giovanni COLIN Copies to: DIXIE [...] Guerrero Jr., D.O.08/14/2023 3:44 PM Dictation Location: [place] [address] Transcribed By: [facility] 08/14/23 1544 Dictated By: Ramsey Guerrero Jr, DO 08/14/23 1536 Signed By: 08/14/23 1544 Normal [facility] CT ABDOMEN WO IV CONTRASTon 08-13-2023 CT [...] Ernie Guerin. Not Vldtd Invalid Interpretation Code [facility] Comment on above: Order Comment: With oral contrast OPNOTEon 08-13-2023 OPNOTE EGD (ESOPHAGOGASTRODUODENOSCOPY) Operative Note Date: 08/13/2023 Location: [facility] OR Name: Judith Khan, : 1945, Diagnosis Pre-op Diagnosis * Hiatal hernia [K44.9] Post-op Diagnosis * Chronic gastric ulcer without hemorrhage and without perforation [K25.7] Procedures EGD (ESOPHAGOGASTRODUODENOSCOPY) 46547 - [place] ESOPHAGOGASTRODUODENOSCOPY [facility] * Verena Sheehan - Primary Procedure Summary Anesthesia: Monitor Anesthesia Care ASA: III Estimated Blood Loss: Minimal Total IV Fluids: 500 mL Drains: * None in log * Staff: Leather Grader: Jian Kat RN Scrub Person: Eva Zambrano [...] NOTE Patient: Judith Khan : 1945 Facility: [facility] Referring/PCP: Rodrick Sams MD Procedure: Esophagogastroduodenoscopy [...] particles Recommendations: 1. -Follow up with me. [phone] pager [phone] Normal [facility] OPNOTE EGD (ESOPHAGOGASTRODUODENOSCOPY) Operative Note Date: 08/13/2023 Location: [facility] OR Name: Judith Khan, : 1945, Diagnosis Pre-op Diagnosis * Hiatal hernia [K44.9] Post-op Diagnosis * Chronic gastric ulcer without hemorrhage and without perforation [K25.7] Procedures EGD (ESOPHAGOGASTRODUODENOSCOPY) 13959 - [place] ESOPHAGOGASTRODUODENOSCOPY [facility] * Verena Sheehan - Primary Procedure Summary Anesthesia: Monitor Anesthesia Care ASA: III Estimated Blood Loss: Minimal Total IV Fluids: 500 mL Drains: * None in log * Staff: Leather Grader: Jian Kat RN Scrub Person: Eva Zambrano [...] NOTE Patient: Judith Khan : 1945 Facility: [facility] Referring/PCP: Rodrick Sams MD Procedure: Esophagogastroduodenoscopy [...] 1. -Follow up with me. 2. -PPIs [phone] pager [phone] Normal [facility] POCT GLUCOSE METER UNSOLICIT ED RESULTSon 08-13-2023 Glucose [Mass/Vol] 85 mg/dL Normal 70-105 [facility] Comment on above: Order Comment: Waive d Testing in the ED is performed under the ED CLIA certificate #[id number]. Result Comment: [facility] jamar Performed By: #### L [id number] #### [facility] H[facility]PITAL LAB (BEAKER) [address] [place] [address] Office Visiton 08-07-2023 Follow-up visit [id number] Donato Khan 1945 F Date Provider Department Center 08/07/2023 [facility]-VERENA SHEEHAN [facility] SURG Second Fl Family History Problem Relation Age of Onset Stroke Mother Stroke Brother Other Mother's Sister Coronary artery disease Mother's Sister Stroke Maternal Grandmother Family Status - Relation Status Age at Mother Brother Mother's Sister Maternal Grandmother Level of Service:80388 [place] OFFICE/OUTPATIENT NEW LOW MDM 30 MINUTES Reason for Visit and Comments: New Patient [632] Louise Wong is here as a new patient for hiatal hernia, s/p ecko Normal [facility] CHEMISTRYOrdered By: SYSTEM SYSTEM on 07-16-2023 Troponin [...] High Sensitivity Troponin I Instructions For Use, Onovative, January 2018) Anion gap [Moles/Vol] 14 mmol/L [...] High Sensitivity Troponin I Instructions For Use, [facility], January 2018) Urea nitrogen [Mass/Vol] 20 mg/dL Normal 5 - 21 mg/dL Remisol Chem Urea nitrogen/Creatinine [Mass ratio] 22 mg/mg High 10 - 20 Remisol Chem HEMATOLOGYOrdered By: SYSTEM SYSTEM on 07-16-2023 Basophil [...] Normal 80.0 - 100.0 fL Remisol Heme Aurora Absolute 1.2 E9/L High 0.2 - 1.0 [...] Normal 4.0 - 11.0 E9/L Remisol Heme URINALYSISOrdered By: Ravi Guzman on 07-16-2023 Bacteria [...] PM) Normal Negative [facility] UA Auto SS [place].plasma/Lithi um.RBC (Bld) [Mass ratio] 0-3 /HPF Normal [...] [facility] UA Auto SS Urobilinogen Qn (U) [id number] {Phoebe'U}/dL Normal 0.0 - 1.0 EU/dL [facility] UA Auto SS WBC Auto Ql (U) 1+ *ABN* (07/16/23 12:49 PM) Invalid Interpretation Code Negative [facility] UA Auto SS WBC LM.HPF (Urine sed) [#/Area] 0-5 /HPF Normal 0-5/HPF [facility] UA Auto SS Office Visiton 07-06-2023 Follow-up visit [id number] Donato Khan 1945 F Date Provider Department Center 07/06/2023 MILA SORIA [facility] Family History Problem Relation Age of Onset Stroke Mother Stroke Brother Other Mother's Sister Coronary artery disease Mother's Sister Stroke Maternal Grandmother Family Status - Relation Status Age at Mother Brother Mother's Sister Maternal Grandmother Level of Service:79814 [place] OFFICE/OUTPATIENT ESTABLISHED MOD MDM 30 MIN Normal [facility] CHEMISTRYOrdered By: SYSTEM SYSTEM on 06-23-2023 Troponin 187.00 pg/mL Invalid Interpretation Code 10.10 - 27.10 pg/mL Remisol Chem Comment on above: Result Comment: Crit ical Result Verified by Previous Result Critical Result I_TnIHS:187.0 Called to and read back by: ANGEL RESTREPO at: 06/23/2023 12:10:53 by:JULIANNAK Interpretive Data: T he 95% CI (Confidence Interval) PPV (Positive Predictive Value) for myocardial infarction in females is 38 pg/mL, in males 51 pg/mL. The results should be used in conjunction with clinical conditions of myocardial infarction. (Access High Sensitivity Troponin I Instructions For Use, [facility], January 2018) Troponin 183.20 pg/mL Invalid Interpretation [...] High Sensitivity Troponin I Instructions For Use, [facility], January 2018) Troponin 116.80 pg/mL Invalid Interpretation [...] Sensitivity Troponin I Instructions For Use, Jacques [place], January 2018) Lactic Acid Lvl 1.1 mmol/L [...] 96 mg/dL Normal 55 - 99 mg/dL [facility] POC Subsection Comment on above: Result Comment: Bonnie jamil RN/ POC Device SN [id number] 1 Invalid Interpretation Code [facility] POC Subsection POC User ID [id number] 1 Invalid Interpretation Code [facility] POC Subsection POC Username JOSH GERONIMO Invalid Interpretation Code [facility] POC Subsection COAGULATIONOrdered By: Hoang Chris on 06-23-2023 aPTT Coag (PPP) [Time] 30.4 s Normal 25.1 - 36.5 second(s) [facility] Auto Coag Comment on above: Interpretive Data: P jorgemeter 15 days - 4 weeks 1 - 5 months 6 - 11 months 1 - 5 years 6 - 10 years 11 - 17 years PTT Mean: 35.4 (27.6-45.6) Mean: 33.5 (24.8-40.7) Mean: 32.4 (25.1-40.7) Mean: 31.6 (24.0-39.2) Mean: 31.6 (26.9-38.7) Mean: 31.0 (24.6-38.4) Pediatric Reference ranges were obtained from a study by jaylen Abraham. prepared from 1437 samples obtained at 7 different centers using the same coagulation reagent and instrumentation as [facility]. Currently there are no coagulation studies available worldwide for children to 14 days, and no normal ranges. Heparin therapeutic range (represented by Anti-Factor Xa activity of 0.2 - 0.4 U/mL) corresponds to PTT of 56.6 - 109.0 sec. INR Coag (PPP) [Relative time] 1.0 {INR} Invalid Interpretation Code [facility] Auto Coag Comment on above: Interpretive Data: I NR results are specifically intended to assess patients stabilized on long-term Anticoagulation therapy suggested INR s Less Intensive Anticoagulation 2.0 3.0 Conventional Range 3.0 4.5 PT Coag (PPP) [Time] 11.7 s Normal 9.4 - 1 2.5 second(s) [facility] Auto Coag Comment on above: Interpretive Data: [...] the same coagulation reagent and instrumentation as [facility]. Currently there are no coagulation studies available worldwide for children to 14 days, and no normal ranges. HEMATOLOGYOrdered By: SYSTEM SYSTEM on 06-23-2023 Basophils/100 WBC (Bld) 0.4 % Normal 0.0 - 2.0 % FT HemeAutoSS Basophils/Leukocytes Auto (Bld) [Pure # fraction] 0.1 E9/L Normal 0.0 - 0.2 E9/L [facility] HemeAutoSS Eosinophils/100 WBC (Bld) 0.8 % Normal 0.0 - 8.0 % FT HemeAutoSS Eosinophils/Leukocyt es Auto (Bld) [Pure # [...] 14.5 E9/L High 4.0 - 11.0 E9/L [facility] HemeAutoSS MICRO OTHER TESTSOrdered By: Hoang Chris on 06-23-2023 Rapid COV Int NEG Ctl Pass (06/23/23 2:12 AM) Normal [facility] Man Sero Rapid COV Int POS Ctl Pass (06/23/23 2:12 AM) Normal [facility] Man Sero SARS-CoV+SARS-CoV-2 (COVID-19) Ag IA.rapid Ql (Resp) Not Detected 11 (06/23/23 2:12 AM) Normal Not Detected [facility] Man Sero Comment on above: Interpretive Data: Bob melendez [employer] Veritor System for Rapid Detection of [...] the authorization is terminated or revoked sooner. URINALYSISOrdered By: Hoang Chris on 06-23-2023 Bacteria [...] AM) Normal Negative [facility] UA Auto SS [place].plasma/Lithi um.RBC (Bld) [Mass ratio] 0-3 /HPF Normal [...] [facility] UA Auto SS Urobilinogen Qn (U) [id number] {Phoebe'U}/dL Normal 0.0 - 1.0 EU/dL [facility] UA Auto SS WBC Auto Ql (U) 1+ *ABN* (06/23/23 3:01 AM) Invalid Interpretation Code Negative [facility] UA Auto SS WBC LM.HPF (Urine sed) [#/Area] 6-15 /HPF Invalid Interpretation Code 0-5/HPF [facility] UA Auto SS Creatinine (Bld) [Mass/Vol]O rdered By: Giovanni Gill on 05-15-2023 Creatinine [Mass/Vol] 1.0 mg/dL 0.6-1.3 [facility] Comment on above: ER/ESD physician is notified/shown all ISTAT results.Critical values may be confirmed by laboratory testing ifdeemed necessary by ER attending doctor. No Panel InformationOrdered By: Giovanni Gill on 05-15-2023 Bedside Estimated GFR (eGFR) 58.023 [facility] 37on 01-12-2023 37 Hold metoprolol and see if fatigue levels improve Continue all other medications Monitor blood pressure 1-2 times a day and if it increases greater than 130/80 please call the office for medication adjustment, or for tachycardia/palpitations Normal [facility] Office Visiton 01-12-2023 Follow-up visit [id number] Donato Khan 1945 F Date Provider Department Center 01/12/2023 MILA SORIA [facility] Family History Problem Relation Age of Onset Stroke Mother Stroke Brother Other Mother's Sister Coronary artery disease Mother's Sister Stroke Maternal Grandmother Family Status - Relation Status Age at Mother Brother Mother's Sister Maternal Grandmother Level of Service:60945 [place] OFFICE/OUTPATIENT ESTABLISHED LOW MDM 20-29 MIN Normal [facility] BNPon 10-09-2022 Natriuretic peptide B (Bld) [Mass/Vol] 90.0 pg/mL Normal <=1,800.0 [facility] Comment on above: Performed By: #### M G, CMP, TSH, T7, BNP #### [facility] [address] [place], [place] [address] Dr. Glenys Holly CBC AUTO DIFFon 10-09-2022 BASO # 0.1 103/ul Normal 0.0-0.1 [facility] Comment on above: Performed By: #### M G, CMP, TSH, T7, BNP #### [facility] [address] [place], [place] [address] Dr. Glenys Holly Basophils/100 WBC (Bld) 1.0 % Normal 0.2-2.0 [facility] Comment on above: Performed By: #### M G, CMP, TSH, T7, BNP #### [facility] [address] [place] [address] Dr. Glenys Holly EO # 0.5 103/ul Normal 0.0-0.7 [facility] Comment on above: Performed By: #### M G, CMP, TSH, T7, BNP #### [facility] [address] [place] [address] Dr. Glenys Holly Eosinophils/100 WBC (Bld) 6.4 % Normal 0.9-7.0 [facility] Comment on above: Performed By: #### M G, CMP, TSH, T7, BNP #### [facility] [address] [place] [address] Dr. Glenys Holly Erythrocyte distribution width (RBC) [Ratio] 15.4 % Critically high 11.0-15.0 [facility] Comment on above: Performed By: #### M G, CMP, TSH, T7, BNP #### [facility] [address] [place] [address] Dr. Glenys Holly Hematocrit (Bld) [Volume fraction] 42.8 % Normal 36.0-48.0 [facility] Comment on above: Performed By: #### M G, CMP, TSH, T7, BNP #### [facility] [address] [place] [address] Dr. Glenys Holly Hemoglobin (Bld) [Mass/Vol] 14.1 g/dL Normal 12.0-16.0 [facility] Comment on above: Performed By: #### M G, CMP, TSH, T7, BNP #### [facility] [address] [place] [address] Dr. Glenys Holly IG # 0.01 10e3/ul Normal 0.00-0.03 [facility] Comment on above: Performed By: #### M G, CMP, TSH, T7, BNP #### [facility] [address] [place] [address] Dr. Glenys Holly IG % 0.1 % Normal 0.0-0.5 [facility] Comment on above: Performed By: #### M G, CMP, TSH, T7, BNP #### [facility] [address] [place] [address] Dr. Glenys Holly LYMPH # 3.3 103/ul Normal 1.2-3.8 [facility] Comment on above: Performed By: #### M G, CMP, TSH, T7, BNP #### [facility] [address] [place] [address] Dr. Glenys Holly Lymphocytes/100 WBC (Bld) 44.2 % Normal 20.5-60.0 [facility] Comment on above: Performed By: #### M G, CMP, TSH, T7, BNP #### [facility] [address] [place] [address] Dr. Glenys Holly MANUAL DIFF REQ NO Normal [facility] Comment on above: Performed By: #### M G, CMP, TSH, T7, BNP #### [facility] [address] [place] [address] Dr. Glenys Holly MCH (RBC) [Entitic mass] 30.3 pg Normal 26.7-34.0 [facility] Comment on above: Performed By: #### M G, CMP, TSH, T7, BNP #### [facility] [address] [place] [address] Dr. Glenys Holly MCHC (RBC) [Mass/Vol] 32.9 g/dL Normal 29.9-35.2 [facility] Comment on above: Performed By: #### M G, CMP, TSH, T7, BNP #### [facility] [address] [place] [address] Dr. Glenys Holly MCV (RBC) [Entitic vol] 92.0 fL Normal 81.0-99.0 [facility] Comment on above: Performed By: #### M G, CMP, TSH, T7, BNP #### [facility] [address] [place] [address] Dr. Glenys Holly MONO # 1.2 103/ul Critically high 0.3-0.8 [facility] Comment on above: Performed By: #### M G, CMP, TSH, T7, BNP #### [facility] [address] [place] [address] Dr. Glenys Holly Monocytes/100 WBC (Bld) 16.4 % Critically high 1.7-12.0 [facility] Comment on above: Performed By: #### M G, CMP, TSH, T7, BNP #### [facility] [address] [place] [address] Dr. Glenys Holly NEUT # 2.4 103/ul Normal 1.4-6.5 [facility] Comment on above: Performed By: #### M G, CMP, TSH, T7, BNP #### [facility] [address] [place] [address] Dr. Glenys Holly Neutrophils/100 WBC (Bld) 31.9 % Critically low 43.0-75.0 [facility] Comment on above: Performed By: #### M G, CMP, TSH, T7, BNP #### [facility] [address] [place] [address] Dr. Glenys Holly Platelet mean volume (Bld) [Entitic vol] 10.3 fL Normal 9.5-13.5 [facility] Comment on above: Performed By: #### M G, CMP, TSH, T7, BNP #### [facility] [address] [place] [address] Dr. Glenys Holly PLT 379 103/ul Normal 150-450 [facility] Comment on above: Performed By: #### M G, CMP, TSH, T7, BNP #### [facility] [address] [place] [address] Dr. Glenys Holly RBC 4.65 106/ul Normal 4.20-5.40 [facility] Comment on above: Performed By: #### M G, CMP, TSH, T7, BNP #### [facility] [address] [place] [address] Dr. Glenys Holly WBC 7.4 103/ul Normal 4.0-11.0 [facility] Comment on above: Performed By: #### M G, CMP, TSH, T7, BNP #### [facility] [address] [place] [address] Dr. Glenys Holly FERRITINon 10-09-2022 Ferritin [Mass/Vol] 68.0 ng/mL Normal 8.0-252.0 [facility] Comment on above: Performed By: #### F ERR, IRON, VITAD ####[facility] [id number] [place] [address]Dr. Glenys Holly FREE THYROXINE INDEX T7on FTI 3.10 Normal 1.30-4.50 [facility] Comment on above: Performed By: #### M G, CMP, TSH, T7, BNP #### [facility] [address] [place] [address] [address] Glenys Holly T3U 36.0 % Normal 30.0-39.0 [facility] Comment on above: Performed By: #### M G, CMP, TSH, T7, BNP #### [facility] [address] [place] [address] Dr. Glenys Holly T4 [Mass/Vol] 8.60 ug/dL Normal 4.80-13.90 [facility] Comment on above: Performed By: #### M G, CMP, TSH, T7, BNP #### [facility] [address] [place] [address] [address] Glenys Holly IRONon 10-09-2022 Iron [Mass/Vol] 52.0 ug/dL Normal 50.0-170.0 [facility] Comment on above: Performed By: #### F ERR, IRON, VITAD ####[facility] [id number] [place] [address]Dr. Glenys Holly MAGNESIUMon 10-09-2022 Magnesium [Mass/Vol] 2.0 mg/dL Normal 1.8-2.4 [facility] Comment on above: Performed By: #### M G, CMP, TSH, T7, BNP #### [facility] [address] [place] [address] Dr. Glenys Holly PROF 14(COMP METB)on 023 Albumin [Mass/Vol] 3.5 g/dL Normal 3.4-5.0 [facility] Comment on above: Performed By: #### M G, CMP, TSH, T7, BNP #### [facility] [address] [place] [address] Dr. Glenys Holly Albumin/Globulin [Mass ratio] 1.0 {ratio} Normal [facility] Comment on above: Performed By: #### M G, CMP, TSH, T7, BNP #### [facility] [address] [place] [address] Dr. Glenys Holly ALP [Catalytic activity/Vol] 134 U/L Critically high 46-116 [facility] Comment on above: Performed By: #### M G, CMP, TSH, T7, BNP #### [facility] [address] [place] [address] Dr. Glenys Holly ALT [Catalytic activity/Vol] 34 U/L Normal 14-59 [facility] Comment on above: Performed By: #### M G, CMP, TSH, T7, BNP #### [facility] [address] [place] [address] Dr. Glenys Holly Anion gap [Moles/Vol] 8.8 mmol/L Normal [facility] Comment on above: Performed By: #### M G, CMP, TSH, T7, BNP #### [facility] [address] [place] [address] Dr. Glenys Holly AST [Catalytic activity/Vol] 19 U/L Normal 15-37 [facility] Comment on above: Performed By: #### M G, CMP, TSH, T7, BNP #### [facility] [address] [place] [address] Dr. Glenys Holly Bilirubin [Mass/Vol] 0.2 mg/dL Normal 0.2-1.0 [facility] Comment on above: Performed By: #### M G, CMP, TSH, T7, BNP #### [facility] [address] [place] [address] Dr. Glenys Holly Calcium [Mass/Vol] 10.6 mg/dL Critically high 8.5-10.1 [facility] Comment on above: Performed By: #### M G, CMP, TSH, T7, BNP #### [facility] [address] [place] [address] Dr. Glenys Holly Chloride [Moles/Vol] 105 mmol/L Normal 98-107 [facility] Comment on above: Performed By: #### M G, CMP, TSH, T7, BNP #### [facility] [address] [place] [address] [address] Glenys Holly CO2 [Moles/Vol] 30.0 mmol/L Normal 21.0-32.0 [facility] Comment on above: Performed By: #### M G, CMP, TSH, T7, BNP #### [facility] [address] [place] [address] Dr. Glenys Holly Creatinine [Mass/Vol] 0.86 mg/dL Normal 0.55-1.02 [facility] Comment on above: Performed By: #### M G, CMP, TSH, T7, BNP #### [facility] [address] [place] [address] Dr. Glenys Holly EGFR-AF CITIZEN [place] >60 Normal >=60 [facility] Comment on above: Performed By: #### M G, CMP, TSH, T7, BNP #### [facility] [address] [place] [address] Dr. Glenys Holly EGFR-NON AF CITIZEN OF [place] >60 Normal >=60 [facility] Comment on above: Performed By: #### M G, CMP, TSH, T7, BNP #### [facility] [address] [place] [address] Dr. Glenys Holly Globulin (S) [Mass/Vol] 3.5 g/dL Normal [facility] Comment on above: Performed By: #### M G, CMP, TSH, T7, BNP #### [facility] [address] [place] [address] [address] Glenys Holly Glucose [Mass/Vol] 99 mg/dL Normal 74-106 [facility] Comment on above: Performed By: #### M G, CMP, TSH, T7, BNP #### [facility] [address] [place] [address] [address] Glenys Holly Potassium [Moles/Vol] 3.8 mmol/L Normal 3.5-5.1 [facility] Comment on above: Performed By: #### M G, CMP, TSH, T7, BNP #### [facility] [address] [place] [address] [address] Glenys Holly Protein [Mass/Vol] 7.0 g/dL Normal 6.4-8.2 [facility] Comment on above: Performed By: #### M G, CMP, TSH, T7, BNP #### [facility] [address] [place] [address] [address] Glenys Holly Sodium [Moles/Vol] 140 mmol/L Normal 136-145 [facility] Comment on above: Performed By: #### M G, CMP, TSH, T7, BNP #### [facility] [address] [place] [address] [address] Glenys Holly Urea nitrogen [Mass/Vol] 25.0 mg/dL Critically high 7.0-18.0 [facility] Comment on above: Performed By: #### M G, CMP, TSH, T7, BNP #### [facility] [address] [place] [address] [address] Glenys Holly Urea nitrogen/Creatinine [Mass ratio] 29.1 mg/mg Normal [facility] Comment on above: Performed By: #### M G, CMP, TSH, T7, BNP #### [facility] [address] [place] [address] [address] Glenys Holly TSHon 10-09-2022 TSH 1.720 uIU/mL Normal 0.358-3.740 [facility] Comment on above: Performed By: #### M G, CMP, TSH, T7, BNP #### [facility] [address] [place] [address] [address] Glenys Holly VITAMIN D 25 OHon 10-09-2022 VIT D 25-OH 89.3 ng/mL Normal [facility] Comment on above: Performed By: #### F ERR, IRON, VITAD ####[facility] [id number] [place] [address]Dr. Glenys Holly VIT D RANGES SEE BELOW Normal [facility] Comment on above: Result Comment: <20 ng/mL Vit D deficient 20 - <30 ng/mL Vit D insufficient 30 - 100 ng/mL Vit D sufficient >100 ng/mL Potential Toxicity Performed By: #### F ERR, IRON, VITAD ####[facility] [id number] [place], [place] [address]Fi. Glenys Holly NM STRESS/REST MULTIon 05-24 NM STRESS/REST MULTI Patient: Shana KHAN Exam Date: 05/24/2022 : 1945 Gender:F Ordering : DR RODRICK SAMS . Admission #: [id number] Family : Order #: [id number] CLICK HERE TO VIEW EXAM RADIOLOGY REPORT [...] M.D. on 05/24/2022 at 16:02 Normal [facility] BNPon 05-10-2022 Natriuretic peptide B (Bld) [Mass/Vol] 1305.0 pg/mL Normal <=1,800.0 [facility] Comment on above: Performed By: #### M G, CMP, TSH, T7, BNP #### [facility] [address] [place] [address] Dr. Glenys Holly CBC AUTO DIFFon 05-10-2022 BASO # 0.0 103/ul Normal 0.0-0.1 [facility] Comment on above: Performed By: #### M G, CMP, TSH, T7, BNP #### [facility] [address] [place] [address] Dr. Glenys Holly Basophils/100 WBC (Bld) 0.3 % Normal 0.2-2.0 [facility] Comment on above: Performed By: #### M G, CMP, TSH, T7, BNP #### [facility] [address] [place] [address] Dr. Glenys Holly EO # 0.0 103/ul Normal 0.0-0.7 [facility] Comment on above: Performed By: #### M G, CMP, TSH, T7, BNP #### [facility] [address] [place] [address] Dr. Glenys Holly Eosinophils/100 WBC (Bld) 0.1 % Critically low 0.9-7.0 [facility] Comment on above: Performed By: #### M G, CMP, TSH, T7, BNP #### [facility] [address] [place] [address] Dr. Glenys Holly Erythrocyte distribution width (RBC) [Ratio] 15.1 % Critically high 11.0-15.0 [facility] Comment on above: Performed By: #### M G, CMP, TSH, T7, BNP #### [facility] [address] [place] [address] Dr. Glenys Holly Hematocrit (Bld) [Volume fraction] 42.9 % Normal 36.0-48.0 [facility] Comment on above: Performed By: #### M G, CMP, TSH, T7, BNP #### [facility] [address] [place] [address] Dr. Glenys Holly Hemoglobin (Bld) [Mass/Vol] 14.6 g/dL Normal 12.0-16.0 [facility] Comment on above: Performed By: #### M G, CMP, TSH, T7, BNP #### [facility] [address] [place] [address] Dr. Glenys Holly IG # 0.05 10e3/ul Critically high 0.00-0.03 [facility] Comment on above: Performed By: #### M G, CMP, TSH, T7, BNP #### [facility] [address] [place] [address] Dr. Glenys Holly IG % 0.7 % Critically high 0.0-0.5 [facility] Comment on above: Performed By: #### M G, CMP, TSH, T7, BNP #### [facility] [address] [place] [address] Dr. Glenys Holly LYMPH # 1.6 103/ul Normal 1.2-3.8 [facility] Comment on above: Performed By: #### M G, CMP, TSH, T7, BNP #### [facility] [address] [place] [address] Dr. Glenys Holly Lymphocytes/100 WBC (Bld) 20.4 % Critically low 20.5-60.0 [facility] Comment on above: Performed By: #### M G, CMP, TSH, T7, BNP #### [facility] [address] [place] [address] Dr. Glenys Holly MANUAL DIFF REQ NO Normal [facility] Comment on above: Performed By: #### M G, CMP, TSH, T7, BNP #### [facility] [address] [place] [address] Dr. Glenys Holly MCH (RBC) [Entitic mass] 29.9 pg Normal 26.7-34.0 [facility] Comment on above: Performed By: #### M G, CMP, TSH, T7, BNP #### [facility] [address] [place] [address] Dr. Glenys Holly MCHC (RBC) [Mass/Vol] 34.0 g/dL Normal 29.9-35.2 [facility] Comment on above: Performed By: #### M G, CMP, TSH, T7, BNP #### [facility] [address] [place] [address] Dr. Glenys Holly MCV (RBC) [Entitic vol] 87.9 fL Normal 81.0-99.0 [facility] Comment on above: Performed By: #### M G, CMP, TSH, T7, BNP #### [facility] [address] [place] [address] Dr. Glenys Holly MONO # 0.7 103/ul Normal 0.3-0.8 [facility] Comment on above: Performed By: #### M G, CMP, TSH, T7, BNP #### [facility] [address] [place] [address] Dr. Glenys Holly Monocytes/100 WBC (Bld) 9.5 % Normal 1.7-12.0 [facility] Comment on above: Performed By: #### M G, CMP, TSH, T7, BNP #### [facility] [address] [place] [address] Dr. Glenys Holly NEUT # 5.2 103/ul Normal 1.4-6.5 [facility] Comment on above: Performed By: #### M G, CMP, TSH, T7, BNP #### [facility] [address] [place] [address] Dr. Glenys Holly Neutrophils/100 WBC (Bld) 69.0 % Normal 43.0-75.0 [facility] Comment on above: Performed By: #### M G, CMP, TSH, T7, BNP #### [facility] [address] [place] [address] Dr. Glenys Holly Platelet mean volume (Bld) [Entitic vol] 11.2 fL Normal 9.5-13.5 [facility] Comment on above: Performed By: #### M G, CMP, TSH, T7, BNP #### [facility] [address] [place] [address] Dr. Glenys Holly PLT 349 103/ul Normal 150-450 [facility] Comment on above: Performed By: #### M G, CMP, TSH, T7, BNP #### [facility] [address] [place] [address] Dr. Glenys Holly RBC 4.88 106/ul Normal 4.20-5.40 [facility] Comment on above: Performed By: #### M G, CMP, TSH, T7, BNP #### [facility] [address] [address] [address] Glenys Holly WBC 7.6 103/ul Normal 4.0-11.0 [facility] Comment on above: Performed By: #### M G, CMP, TSH, T7, BNP #### [facility] [address] [address] [address] Glenys Holly PROF 14(COMP METB)on 022 Albumin [Mass/Vol] 3.3 g/dL Critically low 3.4-5.0 [facility] Comment on above: Performed By: #### H STROPN, BNP, CMP ####[facility] [address] [address]DrRatna Holly Albumin/Globulin [Mass ratio] 1.1 {ratio} Normal [facility] Comment on above: Performed By: #### H STROPN, BNP, CMP ####[facility] [address] [address]DrRatna Holly ALP [Catalytic activity/Vol] 78 U/L Normal 46-116 [facility] Comment on above: Performed By: #### H STROPN, BNP, CMP ####[facility] [address] [address]DrRatna Holly ALT [Catalytic activity/Vol] 10 U/L Critically low 14-59 [facility] Comment on above: Performed By: #### H STROPN, BNP, CMP ####[facility] [address] [address]DrRatna Holly Anion gap [Moles/Vol] 11.2 mmol/L Normal [facility] Comment on above: Performed By: #### H STROPN, BNP, CMP ####[facility] [address] [address]DrRatna Holly AST [Catalytic activity/Vol] 15 U/L Normal 15-37 [facility] Comment on above: Performed By: #### H STROPN, BNP, CMP ####[facility] [address] [address]Dr. Glenys Holly Bilirubin [Mass/Vol] 0.4 mg/dL Normal 0.2-1.0 [facility] Comment on above: Performed By: #### H STROPN, BNP, CMP ####[facility] [address] [address]Dr. Glenys Holly Calcium [Mass/Vol] 8.9 mg/dL Normal 8.5-10.1 [facility] Comment on above: Performed By: #### H STROPN, BNP, CMP ####[facility] [address] [place], [place] [address]Dr. Glenys Holly Chloride [Moles/Vol] 98 mmol/L Normal 98-107 [facility] Comment on above: Performed By: #### H STROPN, BNP, CMP ####[facility] [address] [place], [place] [address]Dr. Glenys Holly CO2 [Moles/Vol] 31.1 mmol/L Normal 21.0-32.0 [facility] Comment on above: Performed By: #### H STROPN, BNP, CMP ####[facility] [address] [place], [place] [address]Dr. Glenys Holly Creatinine [Mass/Vol] 1.15 mg/dL Critically high 0.55-1.02 [facility] Comment on above: Performed By: #### H STROPN, BNP, CMP ####[facility] [address] [place], [place] [address]Dr. Glenys Holly EGFR-AF CITIZEN OF [place] 56 mL/min/1.73m2 Critically low >=60 [facility] Comment on above: Performed By: #### H STROPN, BNP, CMP ####[facility] [address] [place], [place] [address]Dr. Glenys oHlly EGFR-NON AF CITIZEN OF [place] 46 mL/min/1.73m2 Critically low >=60 [facility] Comment on above: Performed By: #### H STROPN, BNP, CMP ####[facility] [address] [address]Dr. Glenys Holly Globulin (S) [Mass/Vol] 3.0 g/dL Normal [facility] Comment on above: Performed By: #### H STROPN, BNP, CMP ####[facility] [address] [address]Dr. Glenys Holly Glucose [Mass/Vol] 107 mg/dL Critically high 74-106 [facility] [place] Comment on above: Performed By: #### H STROPN, BNP, CMP ####[facility] [address] [address]Dr. Glenys Holly Potassium [Moles/Vol] 3.3 mmol/L Critically low 3.5-5.1 [facility] Comment on above: Performed By: #### H STROPN, BNP, CMP ####[facility] [address] [address]Dr. Glenys Holly Protein [Mass/Vol] 6.3 g/dL Critically low 6.4-8.2 [facility] Comment on above: Performed By: #### H STROPN, BNP, CMP ####[facility] [address] [address]Dr. Glenys Holly Sodium [Moles/Vol] 137 mmol/L Normal 136-145 [facility] Comment on above: Performed By: #### H STROPN, BNP, CMP ####[facility] [address] [address]Dr. Glenys Holly Urea nitrogen [Mass/Vol] 29.0 mg/dL Critically high 7.0-18.0 [facility] Comment on above: Performed By: #### H STROPN, BNP, CMP ####[facility] [address] [address]Dr. Glenys Holly Urea nitrogen/Creatinine [Mass ratio] 25.2 mg/mg Normal [facility] Comment on above: Performed By: #### H STROPN, BNP, CMP ####[facility] [address] [address]Dr. Karinaparmjit Holly TROPONIN, HIGH SENSITIVITYon 05-10-2022 HSTROP 50.5 pg/mL Normal 4.0-51.3 [facility] Comment on above: Result Comment: CUT- OFF POINTS HAVE BEEN ESTABLISHED BASED ON THE FOURTH UNIVERSAL DEFINITIONS OF MYOCARDIAL INFARCTION. THE UPPER REFERENCE LIMIT (URL) OF TROPONIN, DEFINED THE 99TH PERCENTILE OF cTnI DISTRIBUTION IN A REFERENCE POPULATION, HAS BEEN CONFIRMED THE DECISION THRESHOLD FOR [place] DIAGNOSIS. Performed By: #### H STROPN, BNP, CMP ####[facility] [address] [place], [place] [address]XyDr. Glenys Holly XR CHEST 2 Von 05-10-2022 [...] RAMIRO SPENCER Date: 2022-05-10 08:10 Normal [facility] BNPon 05-09-2022 Natriuretic peptide B (Bld) [Mass/Vol] 1975.0 pg/mL Critically high <=1,800.0 [facility] Comment on above: Performed By: #### M G, CMP, TSH, T7, BNP #### [facility] [address] [address] [address] Glenys Holly CBC AUTO DIFFon 05-09-2022 BASO # 0.0 103/ul Normal 0.0-0.1 [facility] Comment on above: Performed By: #### M G, CMP, TSH, T7, BNP #### [facility] [address] [place], [place] [address] Dr. Glenys Holly Basophils/100 WBC (Bld) 0.4 % Normal 0.2-2.0 [facility] Comment on above: Performed By: #### M G, CMP, TSH, T7, BNP #### [facility] [address] [place] [address] Dr. Glenys Holly EO # 0.0 103/ul Normal 0.0-0.7 [facility] Comment on above: Performed By: #### M G, CMP, TSH, T7, BNP #### [facility] [address] [place] [address] Dr. Glenys Holly Eosinophils/100 WBC (Bld) 0.0 % Critically low 0.9-7.0 [facility] Comment on above: Performed By: #### M G, CMP, TSH, T7, BNP #### [facility] [address] [place] [address] Dr. Glenys Holly Erythrocyte distribution width (RBC) [Ratio] 15.2 % Critically high 11.0-15.0 [facility] Comment on above: Performed By: #### M G, CMP, TSH, T7, BNP #### [facility] [address] [place] [address] Dr. Glenys Holly Hematocrit (Bld) [Volume fraction] 41.7 % Normal 36.0-48.0 [facility] Comment on above: Performed By: #### M G, CMP, TSH, T7, BNP #### [facility] [address] [place] [address] Dr. Glenys Holly Hemoglobin (Bld) [Mass/Vol] 14.1 g/dL Normal 12.0-16.0 [facility] Comment on above: Performed By: #### M G, CMP, TSH, T7, BNP #### [facility] [address] [place] [address] Dr. Glenys Holly IG # 0.12 10e3/ul Critically high 0.00-0.03 [facility] Comment on above: Performed By: #### M G, CMP, TSH, T7, BNP #### [facility] [address] [place] [address] Dr. Glenys Holly IG % 1.2 % Critically high 0.0-0.5 [facility] Comment on above: Performed By: #### M G, CMP, TSH, T7, BNP #### [facility] [address] [place] [address] Dr. Glenys Holly LYMPH # 1.6 103/ul Normal 1.2-3.8 [facility] Comment on above: Performed By: #### M G, CMP, TSH, T7, BNP #### [facility] [address] [place] [address] Dr. Glenys Holly Lymphocytes/100 WBC (Bld) 16.0 % Critically low 20.5-60.0 [facility] Comment on above: Performed By: #### M G, CMP, TSH, T7, BNP #### [facility] [address] [place] [address] Dr. Glenys Holly MANUAL DIFF REQ NO Normal [facility] Comment on above: Performed By: #### M G, CMP, TSH, T7, BNP #### [facility] [address] [place] [address] Dr. Glenys Holly MCH (RBC) [Entitic mass] 30.0 pg Normal 26.7-34.0 [facility] Comment on above: Performed By: #### M G, CMP, TSH, T7, BNP #### [facility] [address] [place] [address] Dr. Glenys Holly MCHC (RBC) [Mass/Vol] 33.8 g/dL Normal 29.9-35.2 [facility] Comment on above: Performed By: #### M G, CMP, TSH, T7, BNP #### [facility] [address] [place] [address] Dr. Glenys Holly MCV (RBC) [Entitic vol] 88.7 fL Normal 81.0-99.0 [facility] Comment on above: Performed By: #### M G, CMP, TSH, T7, BNP #### [facility] [address] [place] [address] Dr. Glenys Holly MONO # 1.3 103/ul Critically high 0.3-0.8 [facility] Comment on above: Performed By: #### M G, CMP, TSH, T7, BNP #### [facility] [address] [place] [address] Dr. Glenys Holly Monocytes/100 WBC (Bld) 13.2 % Critically high 1.7-12.0 [facility] Comment on above: Performed By: #### M G, CMP, TSH, T7, BNP #### [facility] [address] [address] [address] Glenys Holly NEUT # 6.8 103/ul Critically high 1.4-6.5 [facility] Comment on above: Performed By: #### M G, CMP, TSH, T7, BNP #### [facility] [address] [address] [address] Glenys Holly Neutrophils/100 WBC (Bld) 69.2 % Normal 43.0-75.0 [facility] Comment on above: Performed By: #### M G, CMP, TSH, T7, BNP #### [facility] [address] [place] [address] Dr. Glenys Holly Platelet mean volume (Bld) [Entitic vol] 11.6 fL Normal 9.5-13.5 [facility] Comment on above: Performed By: #### M G, CMP, TSH, T7, BNP #### [facility] [address] [address] [address] Glenys Holly PLT 329 103/ul Normal 150-450 [facility] Comment on above: Performed By: #### M G, CMP, TSH, T7, BNP #### [facility] [address] [address] [address] Glenys Holly RBC 4.70 106/ul Normal 4.20-5.40 [facility] Comment on above: Performed By: #### M G, CMP, TSH, T7, BNP #### [facility] [address] [address] [address] Glenys Holly WBC 9.9 103/ul Normal 4.0-11.0 [facility] Comment on above: Performed By: #### M G, CMP, TSH, T7, BNP #### [facility] [address] [address] [address] Glenys Holly PROF 14(COMP METB)on 022 Albumin [Mass/Vol] 3.0 g/dL Critically low 3.4-5.0 Th e [facility] Comment on above: Performed By: #### M G, CMP, TSH, T7, BNP #### [facility] [address] [place] [address] Dr. Glenys Holly Albumin/Globulin [Mass ratio] 1.1 {ratio} Normal [facility] Comment on above: Performed By: #### M G, CMP, TSH, T7, BNP #### [facility] [address] [place] [address] Dr. Glenys Holly ALP [Catalytic activity/Vol] 78 U/L Normal 46-116 [facility] Comment on above: Performed By: #### M G, CMP, TSH, T7, BNP #### [facility] [address] [place] [address] Dr. Glenys Holly ALT [Catalytic activity/Vol] 10 U/L Critically low 14-59 [facility] Comment on above: Performed By: #### M G, CMP, TSH, T7, BNP #### [facility] [address] [place] [address] Dr. Glenys Holly Anion gap [Moles/Vol] 9.6 mmol/L Normal [facility] Comment on above: Performed By: #### M G, CMP, TSH, T7, BNP #### [facility] [address] [place] [address] Dr. Glenys Holly AST [Catalytic activity/Vol] 18 U/L Normal 15-37 [facility] Comment on above: Performed By: #### M G, CMP, TSH, T7, BNP #### [facility] [address] [place] [address] Dr. Glenys Holly Bilirubin [Mass/Vol] 0.3 mg/dL Normal 0.2-1.0 [facility] Comment on above: Performed By: #### M G, CMP, TSH, T7, BNP #### [facility] [address] [place] [address] Dr. Glenys Holly Calcium [Mass/Vol] 9.1 mg/dL Normal 8.5-10.1 [facility] Comment on above: Performed By: #### M G, CMP, TSH, T7, BNP #### [facility] [address] [address] [address] Glenys Holly Chloride [Moles/Vol] 102 mmol/L Normal 98-107 [facility] Comment on above: Performed By: #### M G, CMP, TSH, T7, BNP #### [facility] [address] [address] [address] Glenys Holly CO2 [Moles/Vol] 30.3 mmol/L Normal 21.0-32.0 [facility] Comment on above: Performed By: #### M G, CMP, TSH, T7, BNP #### [facility] [address] [place] [address] Dr. Glenys Holly Creatinine [Mass/Vol] 0.83 mg/dL Normal 0.55-1.02 [facility] Comment on above: Performed By: #### M G, CMP, TSH, T7, BNP #### [facility] [address] [place] [address] Dr. Glenys Holly EGFR-AF CITIZEN [place] >60 Normal >=60 [facility] Comment on above: Performed By: #### M G, CMP, TSH, T7, BNP #### [facility] [address] [place] [address] Dr. Glenys Holly EGFR-NON AF CITIZEN OF [place] >60 Normal >=60 [facility] Comment on above: Performed By: #### M G, CMP, TSH, T7, BNP #### [facility] [address] [place] [address] Dr. Glenys Holly Globulin (S) [Mass/Vol] 2.8 g/dL Normal [facility] Comment on above: Performed By: #### M G, CMP, TSH, T7, BNP #### [facility] [address] [place] [address] Dr. Glenys Holly Glucose [Mass/Vol] 105 mg/dL Normal 74-106 [facility] Comment on above: Performed By: #### M G, CMP, TSH, T7, BNP #### [facility] [address] [place] [address] Dr. Glenys Holly Potassium [Moles/Vol] 2.9 mmol/L Critically low 3.5-5.1 [facility] Comment on above: Performed By: #### M G, CMP, TSH, T7, BNP #### [facility] [address] [address] [address] Glenys Holly Protein [Mass/Vol] 5.8 g/dL Critically low 6.4-8.2 [facility] Comment on above: Performed By: #### M G, CMP, TSH, T7, BNP #### [facility] [address] [address] [address] Glenys Holly Sodium [Moles/Vol] 138 mmol/L Normal 136-145 [facility] Comment on above: Performed By: #### M G, CMP, TSH, T7, BNP #### [facility] [address] [address] [address] Glenys Holly Urea nitrogen [Mass/Vol] 21.0 mg/dL Critically high 7.0-18.0 [facility] Comment on above: Performed By: #### M G, CMP, TSH, T7, BNP #### [facility] [address] [address] [address] Glenys Holly Urea nitrogen/Creatinine [Mass ratio] 25.3 mg/mg Normal [facility] Comment on above: Performed By: #### M G, CMP, TSH, T7, BNP #### [facility] [address] [address] [address] Glenys Holly TROPONIN, HIGH SENSITIVITYon 05-09-2022 HSTROP 49.8 pg/mL Normal 4.0-51.3 [facility] Comment on above: Result Comment: CUT- OFF POINTS HAVE BEEN ESTABLISHED BASED ON THE FOURTH UNIVERSAL DEFINITIONS OF MYOCARDIAL INFARCTION. THE UPPER REFERENCE LIMIT (URL) OF TROPONIN, DEFINED THE 99TH PERCENTILE OF cTnI DISTRIBUTION IN A REFERENCE POPULATION, HAS BEEN CONFIRMED THE DECISION THRESHOLD FOR [place] DIAGNOSIS. Performed By: #### M G, CMP, TSH, T7, BNP #### [facility] [address] [address] [address] Glenys Holly BNPon 05-08-2022 Natriuretic peptide B (Bld) [Mass/Vol] 2723.0 pg/mL Critically high <=1,800.0 [facility] Comment on above: Performed By: #### C MP, HSTROPN, BNP ####[facility] [address] [address]Dr. Glenys Holly CBC AUTO DIFFon 05-08-2022 BASO # 0.0 103/ul Normal 0.0-0.1 [facility] Comment on above: Performed By: #### M G, CMP, TSH, T7, BNP #### [facility] [address] [address] [address] Glenys Holly Basophils/100 WBC (Bld) 0.2 % Normal 0.2-2.0 [facility] Comment on above: Performed By: #### M G, CMP, TSH, T7, BNP #### [facility] [address] [place] [address] Dr. Glenys Holly EO # 0.0 103/ul Normal 0.0-0.7 [facility] Comment on above: Performed By: #### M G, CMP, TSH, T7, BNP #### [facility] [address] [place] [address] Dr. Glenys Holly Eosinophils/100 WBC (Bld) 0.1 % Critically low 0.9-7.0 [facility] Comment on above: Performed By: #### M G, CMP, TSH, T7, BNP #### [facility] [address] [place] [address] Dr. Glenys Holly Erythrocyte distribution width (RBC) [Ratio] 15.9 % Critically high 11.0-15.0 [facility] Comment on above: Performed By: #### M G, CMP, TSH, T7, BNP #### [facility] [address] [place] [address] Dr. Glenys Holly Hematocrit (Bld) [Volume fraction] 38.0 % Normal 36.0-48.0 [facility] Comment on above: Performed By: #### M G, CMP, TSH, T7, BNP #### [facility] [address] [place] [address] Dr. Glenys Holly Hemoglobin (Bld) [Mass/Vol] 12.5 g/dL Normal 12.0-16.0 [facility] Comment on above: Performed By: #### M G, CMP, TSH, T7, BNP #### [facility] [address] [place] [address] Dr. Glenys Holly IG # 0.17 10e3/ul Critically high 0.00-0.03 [facility] Comment on above: Performed By: #### M G, CMP, TSH, T7, BNP #### [facility] [address] [place] [address] Dr. Glenys Holly IG % 1.1 % Critically high 0.0-0.5 [facility] Comment on above: Performed By: #### M G, CMP, TSH, T7, BNP #### [facility] [address] [place] [address] Dr. Glenys Holly LYMPH # 1.0 103/ul Critically low 1.2-3.8 [facility] Comment on above: Performed By: #### M G, CMP, TSH, T7, BNP #### [facility] [address] [place] [address] Dr. Glenys Holly Lymphocytes/100 WBC (Bld) 6.2 % Critically low 20.5-60.0 [facility] Comment on above: Performed By: #### M G, CMP, TSH, T7, BNP #### [facility] [address] [place] [address] Dr. Glenys Holly MANUAL DIFF REQ NO Normal [facility] Comment on above: Performed By: #### M G, CMP, TSH, T7, BNP #### [facility] [address] [place] [address] Dr. Glenys Holly MCH (RBC) [Entitic mass] 30.1 pg Normal 26.7-34.0 [facility] Comment on above: Performed By: #### M G, CMP, TSH, T7, BNP #### [facility] [address] [place] [address] Dr. Glenys Holly MCHC (RBC) [Mass/Vol] 32.9 g/dL Normal 29.9-35.2 [facility] Comment on above: Performed By: #### M G, CMP, TSH, T7, BNP #### [facility] [address] [place] [address] Dr. Glenys Holly MCV (RBC) [Entitic vol] 91.6 fL Normal 81.0-99.0 [facility] Comment on above: Performed By: #### M G, CMP, TSH, T7, BNP #### [facility] [address] [place] [address] Dr. Glenys Holly MONO # 0.8 103/ul Normal 0.3-0.8 [facility] Comment on above: Performed By: #### M G, CMP, TSH, T7, BNP #### [facility] [address] [place] [address] Dr. Glenys Holly Monocytes/100 WBC (Bld) 5.2 % Normal 1.7-12.0 [facility] Comment on above: Performed By: #### M G, CMP, TSH, T7, BNP #### [facility] [address] [place] [address] Dr. Glenys Holly NEUT # 14.0 103/ul Critically high 1.4-6.5 [facility] Comment on above: Performed By: #### M G, CMP, TSH, T7, BNP #### [facility] [address] [place] [address] Dr. Glenys Holly Neutrophils/100 WBC (Bld) 87.2 % Critically high 43.0-75.0 [facility] Comment on above: Performed By: #### M G, CMP, TSH, T7, BNP #### [facility] [address] [place] [address] Dr. Glenys Holly Platelet mean volume (Bld) [Entitic vol] 11.7 fL Normal 9.5-13.5 [facility] Comment on above: Performed By: #### M G, CMP, TSH, T7, BNP #### [facility] [address] [place] [address] Dr. Glenys Holly PLT 285 103/ul Normal 150-450 [facility] Comment on above: Performed By: #### M G, CMP, TSH, T7, BNP #### [facility] [address] [place] [address] Dr. Glenys Holly RBC 4.15 106/ul Critically low 4.20-5.40 [facility] Comment on above: Performed By: #### M G, CMP, TSH, T7, BNP #### [facility] [address] [place] [address] Dr. Glenys Holly WBC 16.0 103/ul Critically high 4.0-11.0 [facility] Comment on above: Performed By: #### M G, CMP, TSH, T7, BNP #### [facility] [address] [place] [address] Dr. Glenys Holly PROF 14(COMP METB)on 022 Albumin [Mass/Vol] 2.7 g/dL Critically low 3.4-5.0 [facility] Comment on above: Performed By: #### C MP, HSTROPN, BNP #### [facility] [address] [place] [address] Dr. Glenys Holly Albumin/Globulin [Mass ratio] 1.0 {ratio} Normal [facility] Comment on above: Performed By: #### C MP, HSTROPN, BNP #### [facility] [address] [place] [address] Dr. Glenys Holly ALP [Catalytic activity/Vol] 73 U/L Normal 46-116 [facility] Comment on above: Performed By: #### C MP, HSTROPN, BNP #### [facility] [address] [place] [address] Dr. Glenys Holly ALT [Catalytic activity/Vol] 11 U/L Critically low 14-59 [facility] Comment on above: Performed By: #### C MP, HSTROPN, BNP #### [facility] [address] [place] [address] Dr. Glenys Holly Anion gap [Moles/Vol] 10.5 mmol/L Normal [facility] Comment on above: Performed By: #### C MP, HSTROPN, BNP #### [facility] [address] [place] [address] Dr. Glenys Holly AST [Catalytic activity/Vol] 21 U/L Normal 15-37 [facility] Comment on above: Performed By: #### C MP, HSTROPN, BNP #### [facility] [address] [place] [address] Dr. Glenys Holly Bilirubin [Mass/Vol] 0.3 mg/dL Normal 0.2-1.0 [facility] Comment on above: Performed By: #### C MP, HSTROPN, BNP #### [facility] [address] [place] [address] Dr. Glenys Holly Calcium [Mass/Vol] 8.6 mg/dL Normal 8.5-10.1 [facility] Comment on above: Performed By: #### C MP, HSTROPN, BNP #### [facility] [address] [place] [address] Dr. Glenys Holly Chloride [Moles/Vol] 106 mmol/L Normal 98-107 [facility] Comment on above: Performed By: #### C MP, HSTROPN, BNP #### [facility] [address] [place] [address] Dr. Glenys Holly CO2 [Moles/Vol] 29.0 mmol/L Normal 21.0-32.0 [facility] Comment on above: Performed By: #### C MP, HSTROPN, BNP #### [facility] [address] [place] [address] Dr. Glenys Holly Creatinine [Mass/Vol] 0.88 mg/dL Normal 0.55-1.02 [facility] Comment on above: Performed By: #### C MP, HSTROPN, BNP #### [facility] [address] [place] [address] Dr. Glenys Holly EGFR-AF CITIZEN OF [place] >60 Normal >=60 [facility] Comment on above: Performed By: #### C MP, HSTROPN, BNP #### [facility] [address] [place] [address] Dr. Glenys Holly EGFR-NON AF CITIZEN OF [place] >60 Normal >=60 [facility] Comment on above: Performed By: #### C MP, HSTROPN, BNP #### [facility] [address] [address] [address] Glenys Holly Globulin (S) [Mass/Vol] 2.6 g/dL Normal [facility] Comment on above: Performed By: #### C MP, HSTROPN, BNP #### [facility] [address] [address] [address] Glenys Holly Glucose [Mass/Vol] 116 mg/dL Critically high 74-106 [facility] Comment on above: Performed By: #### C MP, HSTROPN, BNP #### [facility] [address] [place] [address] Dr. Glenys Holly Potassium [Moles/Vol] 3.5 mmol/L Normal 3.5-5.1 [facility] Comment on above: Performed By: #### C MP, HSTROPN, BNP #### [facility] [address] [place] [address] Dr. Glenys Holly Protein [Mass/Vol] 5.3 g/dL Critically low 6.4-8.2 [facility] Comment on above: Performed By: #### C MP, HSTROPN, BNP #### [facility] [address] [place] [address] Dr. Glenys Holly Sodium [Moles/Vol] 142 mmol/L Normal 136-145 [facility] Comment on above: Performed By: #### C MP, HSTROPN, BNP #### [facility] [address] [place] [address] Dr. Glenys Holly Urea nitrogen [Mass/Vol] 23.0 mg/dL Critically high 7.0-18.0 [facility] Comment on above: Performed By: #### C MP, HSTROPN, BNP #### [facility] [address] [place] [address] Dr. Glenys Holly Urea nitrogen/Creatinine [Mass ratio] 26.1 mg/mg Normal [facility] Comment on above: Performed By: #### C MP, HSTROPN, BNP #### [facility] [address] [address] [address] Glenys Holly TROPONIN, HIGH SENSITIVITYon 05-08-2022 HSTROP 60.8 pg/mL Critically high 4.0-51.3 [facility] Comment on above: Result Comment: CUT- OFF POINTS HAVE BEEN ESTABLISHED BASED ON THE FOURTH UNIVERSAL DEFINITIONS OF MYOCARDIAL INFARCTION. THE UPPER REFERENCE LIMIT (URL) OF TROPONIN, DEFINED THE 99TH PERCENTILE OF cTnI DISTRIBUTION IN A REFERENCE POPULATION, HAS BEEN CONFIRMED THE DECISION THRESHOLD FOR [place] DIAGNOSIS. Performed By: #### C MP, HSTROPN, BNP ####[facility] [id number] [address]Dr. Glenys Holly BNPon 05-07-2022 Natriuretic peptide B (Bld) [Mass/Vol] 1476.0 pg/mL Normal <=1,800.0 [facility] Comment on above: Performed By: #### C MP, HSTROPN, BNP ####[facility] [address] [address]Dr. Glenys Holly CBC AUTO DIFFon 05-07-2022 BASO # 0.0 103/ul Normal 0.0-0.1 [facility] Comment on above: Performed By: #### M G, CMP, TSH, T7, BNP #### [facility] [address] [address] [address] Glenys Holly Basophils/100 WBC (Bld) 0.1 % Critically low 0.2-2.0 [facility] Comment on above: Performed By: #### M G, CMP, TSH, T7, BNP #### [facility] [address] [address] [address] Glenys Holly EO # 0.0 103/ul Normal 0.0-0.7 [facility] Comment on above: Performed By: #### M G, CMP, TSH, T7, BNP #### [facility] [address] [address] [address] Glenys Holly Eosinophils/100 WBC (Bld) 0.0 % Critically low 0.9-7.0 [facility] Comment on above: Performed By: #### M G, CMP, TSH, T7, BNP #### [facility] [address] [place] [address] Dr. Glenys Holly Erythrocyte distribution width (RBC) [Ratio] 16.3 % Critically high 11.0-15.0 [facility] Comment on above: Performed By: #### M G, CMP, TSH, T7, BNP #### [facility] [address] [place] [address] Dr. Glenys Holly Hematocrit (Bld) [Volume fraction] 34.1 % Critically low 36.0-48.0 [facility] Comment on above: Performed By: #### M G, CMP, TSH, T7, BNP #### [facility] [address] [place] [address] Dr. Glenys Holly Hemoglobin (Bld) [Mass/Vol] 11.2 g/dL Critically low 12.0-16.0 [facility] Comment on above: Performed By: #### M G, CMP, TSH, T7, BNP #### [facility] [address] [place] [address] Dr. Glenys Holly IG # 0.22 10e3/ul Critically high 0.00-0.03 [facility] Comment on above: Performed By: #### M G, CMP, TSH, T7, BNP #### [facility] [address] [place] [address] Dr. Glenys Holly IG % 1.0 % Critically high 0.0-0.5 [facility] Comment on above: Performed By: #### M G, CMP, TSH, T7, BNP #### [facility] [address] [place] [address] Dr. Glenys Holly LYMPH # 1.3 103/ul Normal 1.2-3.8 [facility] Comment on above: Performed By: #### M G, CMP, TSH, T7, BNP #### [facility] [address] [place] [address] Dr. Glenys Holly Lymphocytes/100 WBC (Bld) 6.0 % Critically low 20.5-60.0 [facility] Comment on above: Performed By: #### M G, CMP, TSH, T7, BNP #### [facility] [address] [place] [address] Dr. Glenys Holly MANUAL DIFF REQ NO Normal [facility] Comment on above: Performed By: #### M G, CMP, TSH, T7, BNP #### [facility] [address] [place] [address] Dr. Glenys Holly MCH (RBC) [Entitic mass] 30.7 pg Normal 26.7-34.0 [facility] Comment on above: Performed By: #### M G, CMP, TSH, T7, BNP #### [facility] [address] [place] [address] Dr. Glenys Holly MCHC (RBC) [Mass/Vol] 32.8 g/dL Normal 29.9-35.2 [facility] Comment on above: Performed By: #### M G, CMP, TSH, T7, BNP #### [facility] [address] [place] [address] Dr. Glenys Holly MCV (RBC) [Entitic vol] 93.4 fL Normal 81.0-99.0 [facility] Comment on above: Performed By: #### M G, CMP, TSH, T7, BNP #### [facility] [address] [place] [address] Dr. Glenys Holly MONO # 1.1 103/ul Critically high 0.3-0.8 [facility] Comment on above: Performed By: #### M G, CMP, TSH, T7, BNP #### [facility] [address] [place] [address] Dr. Glenys Holly Monocytes/100 WBC (Bld) 4.8 % Normal 1.7-12.0 [facility] Comment on above: Performed By: #### M G, CMP, TSH, T7, BNP #### [facility] [address] [place] [address] Dr. Glenys Holly NEUT # 19.4 103/ul Critically high 1.4-6.5 [facility] Comment on above: Performed By: #### M G, CMP, TSH, T7, BNP #### [facility] [address] [address] [address] Glenys Holly Neutrophils/100 WBC (Bld) 88.1 % Critically high 43.0-75.0 [facility] Comment on above: Performed By: #### M G, CMP, TSH, T7, BNP #### [facility] [address] [address] [address] Glenys Holly Platelet mean volume (Bld) [Entitic vol] 11.6 fL Normal 9.5-13.5 [facility] Comment on above: Performed By: #### M G, CMP, TSH, T7, BNP #### [facility] [address] [place] [address] Dr. Glenys Holly PLT 309 103/ul Normal 150-450 [facility] Comment on above: Performed By: #### M G, CMP, TSH, T7, BNP #### [facility] [address] [place] [address] Dr. Glenys Holly RBC 3.65 106/ul Critically low 4.20-5.40 [facility] Comment on above: Performed By: #### M G, CMP, TSH, T7, BNP #### [facility] [address] [place] [address] Dr. Glenys Holly WBC 22.0 103/ul Critically high 4.0-11.0 [facility] Comment on above: Performed By: #### M G, CMP, TSH, T7, BNP #### [facility] [address] [address] [address] Glenys Holly PROF 14(COMP METB)on 05-07- 022 Albumin [Mass/Vol] 2.5 g/dL Critically low 3.4-5.0 [facility] Comment on above: Performed By: #### C MP, HSTROPN, BNP ####[facility] [address] [address]Dr. Glenys Holly Albumin/Globulin [Mass ratio] 1.0 {ratio} Normal [facility] Comment on above: Performed By: #### C MP, HSTROPN, BNP ####[facility] [address] [address]Dr. Glenys Holly ALP [Catalytic activity/Vol] 69 U/L Normal 46-116 [facility] Comment on above: Performed By: #### C MP, HSTROPN, BNP ####[facility] [address] [address]Dr. Glenys Holly ALT [Catalytic activity/Vol] 12 U/L Critically low 14-59 [facility] Comment on above: Performed By: #### C MP, HSTROPN, BNP ####[facility] [address] [address]Dr. Glenys Holly Anion gap [Moles/Vol] 10.9 mmol/L Normal [facility] Comment on above: Performed By: #### C MP, HSTROPN, BNP ####[facility] [address] [place], [place] [address]Dr. Glenys Holly AST [Catalytic activity/Vol] 25 U/L Normal 15-37 [facility] Comment on above: Performed By: #### C MP, HSTROPN, BNP ####[facility] [address] [place], [place] [address]Dr. Glenys Holly Bilirubin [Mass/Vol] 0.1 mg/dL Critically low 0.2-1.0 [facility] Comment on above: Performed By: #### C MP, HSTROPN, BNP ####[facility] [address] [place], [place] [address]Dr. Glenys Holly Calcium [Mass/Vol] 9.1 mg/dL Normal 8.5-10.1 [facility] Comment on above: Performed By: #### C MP, HSTROPN, BNP ####[facility] [address] [place], [place] [address]Dr. Glenys Holly Chloride [Moles/Vol] 110 mmol/L Critically high 98-107 [facility] Comment on above: Performed By: #### C MP, HSTROPN, BNP ####[facility] [address] [address]Dr. Yilan Holly CO2 [Moles/Vol] 24.8 mmol/L Normal 21.0-32.0 [facility] Comment on above: Performed By: #### C MP, HSTROPN, BNP ####[facility] [address] [address]Dr. Glenys Holly Creatinine [Mass/Vol] 0.87 mg/dL Normal 0.55-1.02 [facility] Comment on above: Performed By: #### C MP, HSTROPN, BNP ####[facility] [address] [place], [place] [address]Dr. Glenys Holly EGFR-AF CITIZEN OF [place] >60 Normal >=60 [facility] Comment on above: Performed By: #### C MP, HSTROPN, BNP ####[facility] [address] [place], [place] [address]Dr. Glenys Holly EGFR-NON AF CITIZEN OF [place] >60 Normal >=60 [facility] Comment on above: Performed By: #### C MP, HSTROPN, BNP ####[facility] [address] [place], [place] [address]Dr. Glenys Holly Globulin (S) [Mass/Vol] 2.5 g/dL Normal [facility] Comment on above: Performed By: #### C MP, HSTROPN, BNP ####[facility] [address] [address]Dr. Glenys Holly Glucose [Mass/Vol] 128 mg/dL Critically high 74-106 [facility] Comment on above: Performed By: #### C MP, HSTROPN, BNP ####[facility] [address] [address]Dr. Glenys Holly Potassium [Moles/Vol] 4.7 mmol/L Normal 3.5-5.1 [facility] Comment on above: Performed By: #### C MP, HSTROPN, BNP ####[facility] [address] [place], [place] [address]Dr. Glenys Holly Protein [Mass/Vol] 5.0 g/dL Critically low 6.4-8.2 Th [facility] Comment on above: Performed By: #### C MP, HSTROPN, BNP ####[facility] [address] [address]Dr. Glenys Holly Sodium [Moles/Vol] 141 mmol/L Normal 136-145 [facility] Comment on above: Performed By: #### C MP, HSTROPN, BNP ####[facility] [address] [address]Dr. Glenys Holly Urea nitrogen [Mass/Vol] 28.0 mg/dL Critically high 7.0-18.0 [facility] Comment on above: Performed By: #### C MP, HSTROPN, BNP ####[facility] [address] [address]Dr. Glenys Holly Urea nitrogen/Creatinine [Mass ratio] 32.2 mg/mg Normal [facility] Comment on above: Performed By: #### C MP, HSTROPN, BNP ####[facility] [address] [address]Dr. Glenys Holly TROPONIN, HIGH SENSITIVITYon 05-07-2022 HSTROP 78.5 pg/mL Critically high 4.0-51.3 [facility] Comment on above: Result Comment: CUT- OFF POINTS HAVE BEEN ESTABLISHED BASED ON THE FOURTH UNIVERSAL DEFINITIONS OF MYOCARDIAL INFARCTION. THE UPPER REFERENCE LIMIT (URL) OF TROPONIN, DEFINED THE 99TH PERCENTILE OF cTnI DISTRIBUTION IN A REFERENCE POPULATION, HAS BEEN CONFIRMED THE DECISION THRESHOLD FOR [place] DIAGNOSIS. Performed By: #### C MP, HSTROPN, BNP ####[facility] [address] [address]Dr. Glenys Holly XR CHEST 2 Von 05-07-2022 [...] SUPA [place]AN Date: 2022-05-07 10:34 Normal [facility] BNPon 05-06-2022 Natriuretic peptide B (Bld) [Mass/Vol] 1143.0 pg/mL Normal <=1,800.0 [facility] Comment on above: Performed By: #### C MP, BNP ####[facility] [address] [address]Dr. Glenys Holly CBC AUTO DIFFon 05-06-2022 BASO # 0.0 103/ul Normal 0.0-0.1 [facility] Comment on above: Performed By: #### M G, CMP, TSH, T7, BNP #### [facility] [address] [address] [address] Glenys Holly Basophils/100 WBC (Bld) 0.1 % Critically low 0.2-2.0 [facility] Comment on above: Performed By: #### M G, CMP, TSH, T7, BNP #### [facility] [address] [address] [address] Glenys Holly EO # 0.0 103/ul Normal 0.0-0.7 [facility] Comment on above: Performed By: #### M G, CMP, TSH, T7, BNP #### [facility] [address] [address] [address] Glenys Holly Eosinophils/100 WBC (Bld) 0.0 % Critically low 0.9-7.0 [facility] Comment on above: Performed By: #### M G, CMP, TSH, T7, BNP #### [facility] [address] [address] [address] Glenys Holly Erythrocyte distribution width (RBC) [Ratio] 15.8 % Critically high 11.0-15.0 [facility] Comment on above: Performed By: #### M G, CMP, TSH, T7, BNP #### [facility] [address] [place] [address] Dr. Glenys Holly Hematocrit (Bld) [Volume fraction] 36.7 % Normal 36.0-48.0 [facility] Comment on above: Performed By: #### M G, CMP, TSH, T7, BNP #### [facility] [address] [place] [address] Dr. Glenys Holly Hemoglobin (Bld) [Mass/Vol] 12.3 g/dL Normal 12.0-16.0 [facility] Comment on above: Performed By: #### M G, CMP, TSH, T7, BNP #### [facility] [address] [place] [address] Dr. Glenys Holly IG # 0.10 10e3/ul Critically high 0.00-0.03 [facility] Comment on above: Performed By: #### M G, CMP, TSH, T7, BNP #### [facility] [address] [place] [address] Dr. Glenys Holly IG % 0.5 % Normal 0.0-0.5 [facility] Comment on above: Performed By: #### M G, CMP, TSH, T7, BNP #### [facility] [address] [place] [address] Dr. Glenys Holly LYMPH # 1.4 103/ul Normal 1.2-3.8 [facility] Comment on above: Performed By: #### M G, CMP, TSH, T7, BNP #### [facility] [address] [place] [address] Dr. Glenys Holly Lymphocytes/100 WBC (Bld) 7.2 % Critically low 20.5-60.0 [facility] Comment on above: Performed By: #### M G, CMP, TSH, T7, BNP #### [facility] [address] [place] [address] Dr. Glenys Holly MANUAL DIFF REQ NO Normal [facility] Comment on above: Performed By: #### M G, CMP, TSH, T7, BNP #### [facility] [address] [place] [address] Dr. Glenys Holly MCH (RBC) [Entitic mass] 30.9 pg Normal 26.7-34.0 [facility] Comment on above: Performed By: #### M G, CMP, TSH, T7, BNP #### [facility] [address] [place] [address] Dr. Glenys Holly MCHC (RBC) [Mass/Vol] 33.5 g/dL Normal 29.9-35.2 [facility] Comment on above: Performed By: #### M G, CMP, TSH, T7, BNP #### [facility] [address] [place] [address] Dr. Glenys Holly MCV (RBC) [Entitic vol] 92.2 fL Normal 81.0-99.0 [facility] Comment on above: Performed By: #### M G, CMP, TSH, T7, BNP #### [facility] [address] [place] [address] Dr. Glenys Holly MONO # 0.9 103/ul Critically high 0.3-0.8 [facility] Comment on above: Performed By: #### M G, CMP, TSH, T7, BNP #### [facility] [address] [place] [address] Dr. Glenys Holly Monocytes/100 WBC (Bld) 4.6 % Normal 1.7-12.0 [facility] Comment on above: Performed By: #### M G, CMP, TSH, T7, BNP #### [facility] [address] [place] [address] Dr. Glenys Holly NEUT # 17.4 103/ul Critically high 1.4-6.5 [facility] Comment on above: Performed By: #### M G, CMP, TSH, T7, BNP #### [facility] [address] [place] [address] Dr. Glenys Holly Neutrophils/100 WBC (Bld) 87.6 % Critically high 43.0-75.0 [facility] Comment on above: Performed By: #### M G, CMP, TSH, T7, BNP #### [facility] [address] [address] [address] Glenys Holly Platelet mean volume (Bld) [Entitic vol] 11.2 fL Normal 9.5-13.5 [facility] Comment on above: Performed By: #### M G, CMP, TSH, T7, BNP #### [facility] [address] [address] [address] Glenys Holly PLT 310 103/ul Normal 150-450 [facility] Comment on above: Performed By: #### M G, CMP, TSH, T7, BNP #### [facility] [address] [place] [address] Dr. Glenys Holly RBC 3.98 106/ul Critically low 4.20-5.40 [facility] Comment on above: Performed By: #### M G, CMP, TSH, T7, BNP #### [facility] [address] [place] [address] Dr. Glenys Holly WBC 19.8 103/ul Critically high 4.0-11.0 [facility] Comment on above: Performed By: #### M G, CMP, TSH, T7, BNP #### [facility] [address] [place] [address] Dr. Glenys Holly LACTATE/LACTIC ACIDon 2021 Lactate [Moles/Vol] 1.1 mmol/L Normal 0.4-1.9 [facility] Comment on above: Performed By: #### M G, CMP, TSH, T7, BNP #### [facility] [address] [place] [address] Dr. Glenys Holly POINT OF CARE GLUCOSEon 04-12 Glucose [Mass/Vol] 164 mg/dL Critically high 74-106 [facility] [place] Comment on above: Performed By: #### M G, CMP, TSH, T7, BNP #### [facility] [address] [place] [address] Dr. Glenys Holly PROF 14(COMP METB)on 022 Albumin [Mass/Vol] 2.6 g/dL Critically low 3.4-5.0 [facility] Comment on above: Performed By: #### C MP, BNP ####[facility] [address] [address]Dr. Glenys Holly Albumin/Globulin [Mass ratio] 1.0 {ratio} Normal [facility] Comment on above: Performed By: #### C MP, BNP ####[facility] [address] [address]Dr. Glenys Holly ALP [Catalytic activity/Vol] 88 U/L Normal 46-116 [facility] Comment on above: Performed By: #### C MP, BNP ####[facility] [address] [address]Dr. Glenys Holly ALT [Catalytic activity/Vol] 1 U/L Critically low 14-59 [facility] Comment on above: Performed By: #### C MP, BNP ####[facility] [address] [address]Dr. Glenys Holly Anion gap [Moles/Vol] 9.9 mmol/L Normal [facility] Comment on above: Performed By: #### C MP, BNP ####[facility] [address] [address]Dr. Glenys Holly AST [Catalytic activity/Vol] 19 U/L Normal 15-37 [facility] Comment on above: Performed By: #### C MP, BNP ####[facility] [address] [address]Dr. Glenys Holly Bilirubin [Mass/Vol] 0.2 mg/dL Normal 0.2-1.0 [facility] Comment on above: Performed By: #### C MP, BNP ####[facility] [address] [address]Dr. Glenys Holly Calcium [Mass/Vol] 8.7 mg/dL Normal 8.5-10.1 [facility] Comment on above: Performed By: #### C MP, BNP ####[facility] [address] [address]Dr. Glenys Holly Chloride [Moles/Vol] 108 mmol/L Critically high 98-107 [facility] Comment on above: Performed By: #### C MP, BNP ####[facility] [address] [address]Dr. Glenys Holly CO2 [Moles/Vol] 25.2 mmol/L Normal 21.0-32.0 [facility] Comment on above: Performed By: #### C MP, BNP ####[facility] [address] [address]Dr. Glenys Holly Creatinine [Mass/Vol] 0.80 mg/dL Normal 0.55-1.02 [facility] Comment on above: Performed By: #### C MP, BNP ####[facility] [address] [address]Dr. Glenys Holly EGFR-AF CITIZEN OF [place] >60 Normal >=60 [facility] Comment on above: Performed By: #### C MP, BNP ####[facility] [address] [place], [place] [address]Dr. Glenys Avni EGFR-NON AF CITIZEN OF [place] >60 Normal >=60 [facility] Comment on above: Performed By: #### C MP, BNP ####[facility] [address] [address]Dr. Glenys Holly Globulin (S) [Mass/Vol] 2.7 g/dL Normal [facility] Comment on above: Performed By: #### C MP, BNP ####[facility] [address] [address]Dr. Glenys Holly Glucose [Mass/Vol] 123 mg/dL Critically high 74-106 [facility] Comment on above: Performed By: #### C MP, BNP ####[facility] [address] [address]Dr. Glenys Holly Potassium [Moles/Vol] 4.1 mmol/L Normal 3.5-5.1 [facility] Comment on above: Performed By: #### C MP, BNP ####[facility] [address] [address]Dr. Karinaparmjit Avni Protein [Mass/Vol] 5.3 g/dL Critically low 6.4-8.2 [facility] Comment on above: Performed By: #### C MP, BNP ####[facility] [address] [id number] Holly Sodium [Moles/Vol] 139 mmol/L Normal 136-145 [facility] Comment on above: Performed By: #### C MP, BNP ####[facility] [address] [id number] Holly Urea nitrogen [Mass/Vol] 22.0 mg/dL Critically high 7.0-18.0 [facility] Comment on above: Performed By: #### C MP, BNP ####[facility] [address] [address]Dr. Glenys Holly Urea nitrogen/Creatinine [Mass ratio] 27.5 mg/mg Normal [facility] Comment on above: Performed By: #### C MP, BNP ####[facility] [address] [address]Dr. Glenys Holly T3, TOTAL (TRIIODOTHYRONINE) on 05-06-2022 T3, TOTAL 69 ng/dL Critically low 71-180 [facility] Comment on above: Performed By: #### M G, CMP, TSH, T7, BNP #### [facility] [address] [address] [address] Glenys Holly TROPONIN, HIGH SENSITIVITYon 05-06-2022 HSTROP 141.0 pg/mL Critically high 4.0-51.3 [facility] Comment on above: Result Comment: CUT- OFF POINTS HAVE BEEN ESTABLISHED BASED ON THE FOURTH UNIVERSAL DEFINITIONS OF MYOCARDIAL INFARCTION. THE UPPER REFERENCE LIMIT (URL) OF TROPONIN, DEFINED THE 99TH PERCENTILE OF cTnI DISTRIBUTION IN A REFERENCE POPULATION, HAS BEEN CONFIRMED THE DECISION THRESHOLD FOR [place] DIAGNOSIS. Performed By: #### M G, CMP, TSH, T7, BNP #### [facility] [address] [address] [address] Glenys Holly AMYLASEon 05-05-2022 Amylase [Catalytic activity/Vol] 26 U/L Normal 25-115 [facility] Comment on above: Performed By: #### M G, CMP, TSH, T7, BNP #### [facility] [address] [address] [address] Glenys Holly BNPon 05-05-2022 Natriuretic peptide B (Bld) [Mass/Vol] 811.0 pg/mL Normal <=1,800.0 [facility] Comment on above: Performed By: #### M G, CMP, TSH, T7, BNP #### [facility] [address] [address] [address] Glenys Holly CARDIAC ADEEL 3-6on 2 CK [Catalytic activity/Vol] 33 U/L Normal 26-192 [facility] Comment on above: Performed By: #### C MREP ####[facility] [address] [address]Dr. Glenys Holly CK.MB [Mass/Vol] 1.13 ng/mL Normal <=3.60 [facility] Comment on above: Performed By: #### C MREP ####[facility] [address] [place], [place] [address]Dr. Glenys Holly HSTROP 164.3 pg/mL Critically high 4.0-51.3 [facility] Comment on above: Result Comment: CUT- OFF POINTS HAVE BEEN ESTABLISHED BASED ON THE FOURTH UNIVERSAL DEFINITIONS OF MYOCARDIAL INFARCTION. THE UPPER REFERENCE LIMIT (URL) OF TROPONIN, DEFINED THE 99TH PERCENTILE OF cTnI DISTRIBUTION IN A REFERENCE POPULATION, HAS BEEN CONFIRMED THE DECISION THRESHOLD FOR [place] DIAGNOSIS. Performed By: #### C MREP ####[facility] [address] [address]Dr. Glenys Holly CK [Catalytic activity/Vol] 38 U/L Normal 26-192 [facility] Comment on above: Performed By: #### M G, CMP, TSH, T7, BNP #### [facility] [address] [place] [address] Dr. Glenys Holly CK.MB [Mass/Vol] 0.91 ng/mL Normal <=3.60 [facility] Comment on above: Performed By: #### M G, CMP, TSH, T7, BNP #### [facility] [address] [place] [address] Dr. Glenys Holly HSTROP 178.2 pg/mL Critically high 4.0-51.3 [facility] Comment on above: Result Comment: CUT- OFF POINTS HAVE BEEN ESTABLISHED BASED ON THE FOURTH UNIVERSAL DEFINITIONS OF MYOCARDIAL INFARCTION. THE UPPER REFERENCE LIMIT (URL) OF TROPONIN, DEFINED THE 99TH PERCENTILE OF cTnI DISTRIBUTION IN A REFERENCE POPULATION, HAS BEEN CONFIRMED THE DECISION THRESHOLD FOR [place] DIAGNOSIS. Performed By: #### M G, CMP, TSH, T7, BNP #### [facility] [address] [address] [address] Glenys Holly CARDIAC ADEEL ADMITon 022 CK [Catalytic activity/Vol] 29 U/L Normal 26-192 [facility] Comment on above: Performed By: #### M G, CMP, TSH, T7, BNP #### [facility] [address] [place] [address] Dr. Glenys Holly CK.MB [Mass/Vol] 0.73 ng/mL Normal <=3.60 [facility] Comment on above: Performed By: #### M G, CMP, TSH, T7, BNP #### [facility] [address] [address] [address] Glenys Holly HSTROP 191.6 pg/mL Critically high 4.0-51.3 [facility] Comment on above: Result Comment: CUT- OFF POINTS HAVE BEEN ESTABLISHED BASED ON THE FOURTH UNIVERSAL DEFINITIONS OF MYOCARDIAL INFARCTION. THE UPPER REFERENCE LIMIT (URL) OF TROPONIN, DEFINED THE 99TH PERCENTILE OF cTnI DISTRIBUTION IN A REFERENCE POPULATION, HAS BEEN CONFIRMED THE DECISION THRESHOLD FOR [place] DIAGNOSIS. Performed By: #### M G, CMP, TSH, T7, BNP #### [facility] [address] [place] [address] Dr. Glenys Holly NEO 79 ng/mL Normal 9-82 [facility] Comment on above: Performed By: #### M G, CMP, TSH, T7, BNP #### [facility] [address] [place] [address] Dr. Glenys Holly CBC W MANUAL DIFFon 05-05-20 22 ANISOCYTOSIS 1+ Normal [facility] Comment on above: Performed By: #### M G, CMP, TSH, T7, BNP #### [facility] [address] [address] [address] Glenys Holly ATYPICAL LYMPH # Normal [facility] Comment on above: Performed By: #### M G, CMP, TSH, T7, BNP #### [facility] [address] [address] [address] Glenys Holly ATYPICAL LYMPH % Normal [facility] Comment on above: Performed By: #### M G, CMP, TSH, T7, BNP #### [facility] [address] [address] [address] Glenys Holly BAND # 0.2 103/ul Normal 0.0-0.3 [facility] Comment on above: Performed By: #### M G, CMP, TSH, T7, BNP #### [facility] [address] [place] [address] Dr. Glenys Holly BAND % 1 % Normal 0-5 [facility] Comment on above: Performed By: #### M G, CMP, TSH, T7, BNP #### [facility] [address] [place] [address] Dr. Glenys Holly BASOM # 0.00 103/ul Normal 0.00-0.10 [facility] Comment on above: Performed By: #### M G, CMP, TSH, T7, BNP #### [facility] [address] [place] [address] Dr. Glenys Holly BASOM % 0.0 % Critically low 0.2-2.0 [facility] Comment on above: Performed By: #### M G, CMP, TSH, T7, BNP #### [facility] [address] [place] [address] Dr. Glenys Holly BLAST # Normal [facility] Comment on above: Performed By: #### M G, CMP, TSH, T7, BNP #### [facility] [address] [place] [address] Dr. Glenys Holly BLAST % Normal [facility] Comment on above: Performed By: #### M G, CMP, TSH, T7, BNP #### [facility] [address] [place] [address] Dr. Glenys Holly CORRECTED WBC Normal 4.0-11.0 [facility] Comment on above: Performed By: #### M G, CMP, TSH, T7, BNP #### [facility] [address] [place] [address] Dr. Glenys Holly EOS # 0.00 103/ul Normal 0.00-0.70 [facility] Comment on above: Performed By: #### M G, CMP, TSH, T7, BNP #### [facility] [address] [place] [address] Dr. Glenys Holly EOS% 0.0 % Critically low 0.9-7.0 [facility] Comment on above: Performed By: #### M G, CMP, TSH, T7, BNP #### [facility] [address] [place] [address] Dr. Glenys Holly HCT 41.5 % Normal 36.0-48.0 [facility] Comment on above: Performed By: #### M G, CMP, TSH, T7, BNP #### [facility] [address] [place] [address] Dr. Glenys Holly HGB 14.2 g/dl Normal 12.0-16.0 [facility] Comment on above: Performed By: #### M G, CMP, TSH, T7, BNP #### [facility] [address] [place] [address] Dr. Glenys Holly LYMPHM # 0.96 103/ul Critically low 1.20-3.80 [facility] Comment on above: Performed By: #### M G, CMP, TSH, T7, BNP #### [facility] [address] [place] [address] Dr. Glenys Holly LYMPHM% 6.0 % Critically low 20.5-60.0 [facility] Comment on above: Performed By: #### M G, CMP, TSH, T7, BNP #### [facility] [address] [place] [address] Dr. Glenys Holly MCH 31.0 pg Normal 26.7-34.0 [facility] Comment on above: Performed By: #### M G, CMP, TSH, T7, BNP #### [facility] [address] [address] [address] Glenys Holly MCHC 34.2 g/dl Normal 29.9-35.2 [facility] Comment on above: Performed By: #### M G, CMP, TSH, T7, BNP #### [facility] [address] [address] [address] Glenys Holly MCV 90.6 fL Normal 81.0-99.0 [facility] Comment on above: Performed By: #### M G, CMP, TSH, T7, BNP #### [facility] [address] [place] [address] Dr. Glenys Holly METAMYELOCYTE # Normal [facility] Comment on above: Performed By: #### M G, CMP, TSH, T7, BNP #### [facility] [address] [place] [address] Dr. Glenys Holly METAMYELOCYTE % Normal [facility] Comment on above: Performed By: #### M G, CMP, TSH, T7, BNP #### [facility] [address] [address] [address] Glenys Holly MONOM# 2.56 103/ul Critically high 0.30-0.80 [facility] Comment on above: Performed By: #### M G, CMP, TSH, T7, BNP #### [facility] [address] [place] [address] Dr. Glenys Holly MONOM% 16.0 % Critically high 1.7-12.0 [facility] Comment on above: Performed By: #### M G, CMP, TSH, T7, BNP #### [facility] [address] [place] [address] Dr. Glenys Holly MPV 11.1 fL Normal 9.5-13.5 [facility] Comment on above: Performed By: #### M G, CMP, TSH, T7, BNP #### [facility] [address] [address] [address] Glenys Holly MYELOCYTE # Normal [facility] Comment on above: Performed By: #### M G, CMP, TSH, T7, BNP #### [facility] [address] [address] [address] Glenys Holly MYELOCYTE % Normal [facility] Comment on above: Performed By: #### M G, CMP, TSH, T7, BNP #### [facility] [address] [address] [address] Glenys Holly NRBC Normal [facility] Comment on above: Performed By: #### M G, CMP, TSH, T7, BNP #### [facility] [address] [address] [address] Glenys Holly PLT 352 103/ul Normal 150-450 [facility] Comment on above: Performed By: #### M G, CMP, TSH, T7, BNP #### [facility] [address] [place] [address] Dr. Glenys Holly RBC 4.58 106/ul Normal 4.20-5.40 [facility] Comment on above: Performed By: #### M G, CMP, TSH, T7, BNP #### [facility] [address] [place] [address] Dr. Glenys Holly RDW 15.2 % Critically high 11.0-15.0 [facility] Comment on above: Performed By: #### M G, CMP, TSH, T7, BNP #### [facility] [address] [place] [address] Dr. Glenys Holly SEG # 12.32 103/ul Critically high 1.40-6.50 [facility] Comment on above: Performed By: #### M G, CMP, TSH, T7, BNP #### [facility] [address] [address] [address] Glenys Holly SEG % 77.0 % Critically high 43.0-75.0 [facility] Comment on above: Performed By: #### M G, CMP, TSH, T7, BNP #### [facility] [address] [address] [address] Glenys Holly WBC 16.0 103/ul Critically high 4.0-11.0 [facility] Comment on above: Performed By: #### M G, CMP, TSH, T7, BNP #### [facility] [address] [place], [place] [address] Dr. Glenys Holly CTA CHEST WO W [...] YULISSA TALBERT Date: 2022-05-05 09:32 Normal [facility] CULTURE BLOODon 05-05-2022 Microscopic examination of blood, culture Culture Observations: NO GROWTH AT 5 DAYS. Normal [facility] Comment on above: Performed By: #### B LDCX2 ####[facility] [address] [place], [place] [address]CzDr. Glenys Holly Microscopic examination of blood, culture Culture Observations: NO GROWTH AT 5 DAYS. Normal [facility] Comment on above: Performed By: #### B LDCX1 ####[facility] [address] [place], [place] [address]Wk. Glenys Holly CULTURE URINEon 05-05-2022 CULTURE URINE Culture Observations : LIGHT GROWTH OF MIXED GENITAL NIDA. NO POTENTIAL PATHOGENS SEEN. Normal [facility] Comment on above: Performed By: #### U RCX ####[facility] [address] [place], [place] [address]Rp. Glenys Holly Covid-19 PCR (CVDTB)on 04-12 SARS-CoV-2 (COVID-19) RNA KINZA+probe Ql (Unsp spec) Not detected Normal NOT DETECTED [facility] Comment on above: Result Comment: [...] for this test is supported by the [employer] Manager of Health and Human Service's declaration that [...] used). Performed By: #### C VDTBH #### [facility] [id number] Glenys Holly ECHOCARDIO M/2D COMPLETEon 1 07-05-2021 ECHOCARDIO M/2D COMPLETE Patient: JUDITH KHAN Exam Date: 05/05/2022 : 1945 Gender:F Ordering : DR RODRICK SAMS . Admission #: [id number] Family : Order #: [id number] CLICK HERE TO VIEW EXAM ECHOCARDIOGRAM REPORT [...] M.D. on 05/10/2022 at 13:12 Normal [facility] INFLUENZA A AND B AGon 05-05 INFLUANEGH SEE BELOW Normal [facility] Comment on above: Result Comment: Nega tive for Flu A protein angiten. Infection due to Flu A cannot be ruled out. Flu A angiten in the sample may be below the detection limit of the test. Performed By: #### M G, CMP, TSH, T7, BNP #### [facility] [address] [place] [address] Dr. Glenys Holly [facility] SEE BELOW Normal [facility] Comment on above: Result Comment: Nega tive for Flu B protein antigen. Infection due to Flu B cannot be ruled out. Flu B antigen in the sample may be below the detection limit of the test. Performed By: #### M G, CMP, TSH, T7, BNP #### [facility] [address] [place] [address] Dr. Glenys Holly INFLUENZA A AG Negative Normal NEGATIVE SEE COMMENT [facility] Comment on above: Performed By: #### M G, CMP, TSH, T7, BNP #### [facility] [address] [place] [address] Dr. Glenys Holly INFLUENZA B AG Negative Normal NEGATIVE SEE COMMENT [facility] Comment on above: Performed By: #### M G, CMP, TSH, T7, BNP #### [facility] [address] [place] [address] Dr. Glenys Holly INTERNAL CONTROLS Within Normal Limits Normal Wi thin Normal Limits [facility] Comment on above: Performed By: #### M G, CMP, TSH, T7, BNP #### [facility] [address] [place] [address] Dr. Glenys Holly LACTATE/LACTIC ACIDon 2021 Lactate [Moles/Vol] 5.2 mmol/L Critically high 0.4-1.9 [facility] Comment on above: Performed By: #### M G, CMP, TSH, T7, BNP #### [facility] [address] [place] [address] Dr. Glenys Holly Lactate [Moles/Vol] 4.8 mmol/L Critically high 0.4-1.9 [facility] Comment on above: Performed By: #### M G, CMP, TSH, T7, BNP #### [facility] [address] [place] [address] Dr. Glenys Holly LIPASEon 05-05-2022 Lipase [Catalytic activity/Vol] 64.0 U/L Critically low 73.0-393.0 [facility] Comment on above: Performed By: #### M G, CMP, TSH, T7, BNP #### [facility] [address] [place] [address] Dr. Glenys Holly PROF CHEM 8 (BAS METB)on Anion gap [Moles/Vol] 12.6 mmol/L Normal [facility] Comment on above: Performed By: #### M G, CMP, TSH, T7, BNP #### [facility] [address] [place] [address] Dr. Glenys Holly Calcium [Mass/Vol] 9.6 mg/dL Normal 8.5-10.1 [facility] Comment on above: Performed By: #### M G, CMP, TSH, T7, BNP #### [facility] [address] [place] [address] Dr. Glenys Holly Chloride [Moles/Vol] 102 mmol/L Normal 98-107 [facility] Comment on above: Performed By: #### M G, CMP, TSH, T7, BNP #### [facility] [address] [place] [address] Dr. Glenys Holly CO2 [Moles/Vol] 26.3 mmol/L Normal 21.0-32.0 [facility] Comment on above: Performed By: #### M G, CMP, TSH, T7, BNP #### [facility] [address] [place] [address] Dr. Glenys Holly Creatinine [Mass/Vol] 1.00 mg/dL Normal 0.55-1.02 [facility] Comment on above: Performed By: #### M G, CMP, TSH, T7, BNP #### [facility] [address] [place] [address] Dr. Glenys Holly EGFR-AF CITIZEN OF [place] >60 Normal >=60 [facility] Comment on above: Performed By: #### M G, CMP, TSH, T7, BNP #### [facility] [address] [place] [address] Dr. Glenys Holly EGFR-NON AF CITIZEN OF [place] 54 mL/min/1.73m2 Critically low >=60 [facility] Comment on above: Performed By: #### M G, CMP, TSH, T7, BNP #### [facility] [address] [place] [address] Dr. Glenys Holly Glucose [Mass/Vol] 128 mg/dL Critically high 74-106 [facility] Comment on above: Performed By: #### M G, CMP, TSH, T7, BNP #### [facility] [address] [place] [address] Dr. Glenys Holly Potassium [Moles/Vol] 2.9 mmol/L Critically low 3.5-5.1 [facility] Comment on above: Performed By: #### M G, CMP, TSH, T7, BNP #### [facility] [address] [place] [address] Dr. Glenys Holly Sodium [Moles/Vol] 138 mmol/L Normal 136-145 [facility] Comment on above: Performed By: #### M G, CMP, TSH, T7, BNP #### [facility] [address] [place] [address] Dr. Glenys Holly Urea nitrogen [Mass/Vol] 20.0 mg/dL Critically high 7.0-18.0 [facility] Comment on above: Performed By: #### M G, CMP, TSH, T7, BNP #### [facility] [address] [place] [address] Dr. Glenys Holly Urea nitrogen/Creatinine [Mass ratio] 20.0 mg/mg Normal [facility] Comment on above: Performed By: #### M G, CMP, TSH, T7, BNP #### [facility] [address] [place] [address] Dr. Glenys Holly T4on 05-05-2022 T4 [Mass/Vol] 7.40 ug/dL Normal 4.80-13.90 [facility] Comment on above: Performed By: #### M G, CMP, TSH, T7, BNP #### [facility] [address] [address] [address] Glenys Holly TSHon 05-05-2022 TSH 0.198 uIU/mL Critically low 0.358-3.740 [facility] Comment on above: Performed By: #### M G, CMP, TSH, T7, BNP #### [facility] [address] [place] [address] Dr. Glenys Holly UA RANDOM W/MICROSCOPICon BACTERIA NONE SEEN Normal NONE SEEN [facility] Comment on above: Performed By: #### M G, CMP, TSH, T7, BNP #### [facility] [address] [place] [address] Dr. Glenys Holly Bilirubin Ql (U) Negative Normal NEGATIVE [facility] Comment on above: Performed By: #### M G, CMP, TSH, T7, BNP #### [facility] [address] [place] [address] Dr. Glenys Holly CAST NONE SEEN Normal NONE SEEN [facility] Comment on above: Performed By: #### M G, CMP, TSH, T7, BNP #### [facility] [address] [place] [address] Dr. Glenys Holly Clarity (U) SL CLOUDY Abnormal CLEAR [facility] Comment on above: Performed By: #### M G, CMP, TSH, T7, BNP #### [facility] [address] [place] [address] Dr. Glenys Holly Color (U) LT. YELLOW Normal YELLOW [facility] Comment on above: Performed By: #### M G, CMP, TSH, T7, BNP #### [facility] [address] [place] [address] Dr. Glenys Holly Crystals LM Nom (Urine sed) NONE SEEN Normal NONE SEEN [facility] Comment on above: Performed By: #### M G, CMP, TSH, T7, BNP #### [facility] [address] [place] [address] Dr. Glenys Holly Epithelial cells LM Ql (Urine sed) FEW Abnormal NONE SEEN /RARE [facility] Comment on above: Performed By: #### M G, CMP, TSH, T7, BNP #### [facility] [address] [address] [address] Glenys Holly Glucose Ql (U) Negative Normal NEGATIVE [facility] Comment on above: Performed By: #### M G, CMP, TSH, T7, BNP #### [facility] [address] [address] [address] Glenys Holly Hemoglobin Ql (U) MODERATE Abnormal NEGATIVE [facility] Comment on above: Performed By: #### M G, CMP, TSH, T7, BNP #### [facility] [address] [address] [address] Glenys Holly Ketones Ql (U) Negative Normal NEGATIVE [facility] Comment on above: Performed By: #### M G, CMP, TSH, T7, BNP #### [facility] [address] [place] [address] Dr. Glenys oHlly LEUKOCYTES Negative Normal NEGATIVE [facility] Comment on above: Performed By: #### M G, CMP, TSH, T7, BNP #### [facility] [address] [place] [address] Dr. Glenys Holly MUCOUS NONE SEEN Normal NONE SEEN [facility] Comment on above: Performed By: #### M G, CMP, TSH, T7, BNP #### [facility] [address] [place] [address] Dr. Glenys Holly Nitrite Ql (U) Negative Normal NEGATIVE [facility] Comment on above: Performed By: #### M G, CMP, TSH, T7, BNP #### [facility] [address] [place] [address] Dr. Glenys Holly pH (U) 6.0 [pH] Normal 5-9 [facility] Comment on above: Performed By: #### M G, CMP, TSH, T7, BNP #### [facility] [address] [place] [address] Dr. Glenys Holly RBC 2-5 Abnormal 0-2 [facility] Comment on above: Performed By: #### M G, CMP, TSH, T7, BNP #### [facility] [address] [place] [address] Dr. Glenys Holly SPEC GRAVITY 1.010 Normal 1.005-<=1.0 25 [facility] Comment on above: Performed By: #### M G, CMP, TSH, T7, BNP #### [facility] [address] [address] [address] Glenys Holly UA PROTEIN TRACE Normal NEGATIVE/ TRACE [facility] Comment on above: Performed By: #### M G, CMP, TSH, T7, BNP #### [facility] [address] [address] [address] Glenys Holly Urobilinogen Qn (U) 0.2 {Phoebe'U}/dL Normal 0.2 - 1. 0 [facility] Comment on above: Performed By: #### M G, CMP, TSH, T7, BNP #### [facility] [address] [address] [address] Glenys Holly WBC NONE SEEN Normal NONE SEEN [facility] Comment on above: Performed By: #### M G, CMP, TSH, T7, BNP #### [facility] [address] [address] [address] Glenys Holly XR CHEST 1 Von [...] SUPA LOZANO Date: 2022-05-05 07:41 Normal [facility] CULTURE URINEon 03-30-2022 CULTURE URINE Culture Observations : GREATER THAN 4 ORGANISMS PRESENT. PLEASE RESUBMIT CLEAN CATCH MID-STREAM URINE IF CLINICALLY INDICATED. Normal [facility] Comment on above: Performed By: #### U RCX ####[facility] [id number] [id number]. Glenys Holly CBC W MANUAL DIFFon 03-29-20 22 ATYPICAL LYMPH # Normal [facility] Comment on above: Performed By: #### M G, CMP, TSH, T7, BNP #### [facility] [address] [place] [address] Dr. Glenys Holly ATYPICAL LYMPH % Normal [facility] Comment on above: Performed By: #### M G, CMP, TSH, T7, BNP #### [facility] [address] [address] [address] Glenys Holly BAND # Normal 0.0-0.3 [facility] Comment on above: Performed By: #### M G, CMP, TSH, T7, BNP #### [facility] [address] [place] [address] Dr. Glenys Holly BAND % Normal 0-5 [facility] Comment on above: Performed By: #### M G, CMP, TSH, T7, BNP #### [facility] [address] [place] [address] Dr. Glenys Holly BASOM # 0.20 103/ul Critically high 0.00-0.10 [facility] Comment on above: Performed By: #### M G, CMP, TSH, T7, BNP #### [facility] [address] [place] [address] Dr. Glenys Holly BASOM % 1.0 % Normal 0.2-2.0 [facility] Comment on above: Performed By: #### M G, CMP, TSH, T7, BNP #### [facility] [address] [place] [address] Dr. Glenys Holly BLAST # Normal [facility] Comment on above: Performed By: #### M G, CMP, TSH, T7, BNP #### [facility] [address] [place] [address] Dr. Glenys Holly BLAST % Normal [facility] Comment on above: Performed By: #### M G, CMP, TSH, T7, BNP #### [facility] [address] [place] [address] Dr. Glenys Holly CORRECTED WBC Normal 4.0-11.0 [facility] Comment on above: Performed By: #### M G, CMP, TSH, T7, BNP #### [facility] [address] [place] [address] Dr. Glenys Holly EOS # 0.00 103/ul Normal 0.00-0.70 [facility] Comment on above: Performed By: #### M G, CMP, TSH, T7, BNP #### [facility] [address] [place] [address] Dr. Glenys Holly EOS% 0.0 % Critically low 0.9-7.0 [facility] Comment on above: Performed By: #### M G, CMP, TSH, T7, BNP #### [facility] [address] [place] [address] Dr. Glenys Holly HCT 45.0 % Normal 36.0-48.0 [facility] Comment on above: Performed By: #### M G, CMP, TSH, T7, BNP #### [facility] [address] [place] [address] Dr. Glenys Holly HGB 15.2 g/dl Normal 12.0-16.0 [facility] Comment on above: Performed By: #### M G, CMP, TSH, T7, BNP #### [facility] [address] [place] [address] Dr. Glenys Holly LYMPHM # 2.80 103/ul Normal 1.20-3.80 [facility] Comment on above: Performed By: #### M G, CMP, TSH, T7, BNP #### [facility] [address] [place] [address] Dr. Glenys Holly LYMPHM% 14.0 % Critically low 20.5-60.0 [facility] Comment on above: Performed By: #### M G, CMP, TSH, T7, BNP #### [facility] [address] [place] [address] Dr. Glenys Holly MCH 30.6 pg Normal 26.7-34.0 [facility] Comment on above: Performed By: #### M G, CMP, TSH, T7, BNP #### [facility] [address] [place] [address] Dr. Glenys Holly MCHC 33.8 g/dl Normal 29.9-35.2 [facility] Comment on above: Performed By: #### M G, CMP, TSH, T7, BNP #### [facility] [address] [address] [address] Glenys Holly MCV 90.7 fL Normal 81.0-99.0 [facility] Comment on above: Performed By: #### M G, CMP, TSH, T7, BNP #### [facility] [address] [address] [address] Glenys Holly METAMYELOCYTE # Normal [facility] Comment on above: Performed By: #### M G, CMP, TSH, T7, BNP #### [facility] [address] [place] [address] Dr. Glenys Holly METAMYELOCYTE % Normal [facility] Comment on above: Performed By: #### M G, CMP, TSH, T7, BNP #### [facility] [address] [place] [address] Dr. Glenys Holly MONOM# 2.40 103/ul Critically high 0.30-0.80 [facility] Comment on above: Performed By: #### M G, CMP, TSH, T7, BNP #### [facility] [address] [place] [address] Dr. Glenys Holly MONOM% 12.0 % Normal 1.7-12.0 [facility] Comment on above: Performed By: #### M G, CMP, TSH, T7, BNP #### [facility] [address] [place] [address] Dr. Glenys Holly MPV 11.5 fL Normal 9.5-13.5 [facility] Comment on above: Performed By: #### M G, CMP, TSH, T7, BNP #### [facility] [address] [place] [address] Dr. Glenys Holly MYELOCYTE # Normal [facility] Comment on above: Performed By: #### M G, CMP, TSH, T7, BNP #### [facility] [address] [place] [address] Dr. Glenys Holly MYELOCYTE % Normal [facility] Comment on above: Performed By: #### M G, CMP, TSH, T7, BNP #### [facility] [address] [place] [address] Dr. Glenys Holly NR Normal [facility] Comment on above: Performed By: #### M G, CMP, TSH, T7, BNP #### [facility] [address] [address] [address] Glenys Holly PLT 323 103/ul Normal 150-450 [facility] Comment on above: Performed By: #### M G, CMP, TSH, T7, BNP #### [facility] [address] [place] [address] Dr. Glenys Holly RBC 4.96 106/ul Normal 4.20-5.40 [facility] Comment on above: Performed By: #### M G, CMP, TSH, T7, BNP #### [facility] [address] [place] [address] Dr. Glenys Holly RDW 14.4 % Normal 11.0-15.0 [facility] Comment on above: Performed By: #### M G, CMP, TSH, T7, BNP #### [facility] [address] [place] [address] Dr. Glenys Holly SEG # 14.60 103/ul Critically high 1.40-6.50 [facility] Comment on above: Performed By: #### M G, CMP, TSH, T7, BNP #### [facility] [address] [place] [address] Dr. Glenys Holly SEG % 73.0 % Normal 43.0-75.0 [facility] Comment on above: Performed By: #### M G, CMP, TSH, T7, BNP #### [facility] [address] [place] [address] Dr. Glenys Holly WBC 20.0 103/ul Critically high 4.0-11.0 [facility] Comment on above: Performed By: #### M G, CMP, TSH, T7, BNP #### [facility] [address] [place] [address] ABD/PELV W CONon [...] RAMIRO SPENCER Date: 2022-03-29 11:27 Normal [facility] ER URINE PROFILEon 2 Bilirubin Ql (U) Negative Normal NEGATIVE [facility] Comment on above: Performed By: #### M G, CMP, TSH, T7, BNP #### [facility] [address] [address] [address] Glenys Holly Clarity (U) CLEAR Normal CLEAR [facility] Comment on above: Performed By: #### M G, CMP, TSH, T7, BNP #### [facility] [address] [place], [place] [address] Dr. Glenys Holly Color (U) LT. YELLOW Normal YELLOW [facility] Comment on above: Performed By: #### M G, CMP, TSH, T7, BNP #### [facility] [address] [address] [address] Glenys WILLIAMSON A micrscopic examina tion will be performed if indicated. Normal [facility] Comment on above: Performed By: #### M G, CMP, TSH, T7, BNP #### [facility] [address] [address] [address] Glenys Holly Glucose Ql (U) Negative Normal NEGATIVE [facility] Comment on above: Performed By: #### M G, CMP, TSH, T7, BNP #### [facility] [address] [place] [address] Dr. Glenys Holly Hemoglobin Ql (U) MODERATE Abnormal NEGATIVE [facility] Comment on above: Performed By: #### M G, CMP, TSH, T7, BNP #### [facility] [address] [place] [address] Dr. Glenys Holly Ketones Ql (U) 15 mg/dl Abnormal NEGATIVE [facility] Comment on above: Performed By: #### M G, CMP, TSH, T7, BNP #### [facility] [address] [place] [address] Dr. Glenys Holly LEUKOCYTES LARGE Abnormal NEGATIVE [facility] Comment on above: Performed By: #### M G, CMP, TSH, T7, BNP #### [facility] [address] [address] [address] Glenys Holly Nitrite Ql (U) Negative Normal NEGATIVE [facility] Comment on above: Performed By: #### M G, CMP, TSH, T7, BNP #### [facility] [address] [address] [address] Glenys Holly pH (U) 6.5 [pH] Normal 5-9 [facility] Comment on above: Performed By: #### M G, CMP, TSH, T7, BNP #### [facility] [address] [place] [address] Dr. Glenys Holly SPEC GRAVITY 1.015 Normal 1.005-<=1.0 25 [facility] Comment on above: Performed By: #### M G, CMP, TSH, T7, BNP #### [facility] [address] [place] [address] Dr. Glenys Holly UA PROTEIN TRACE Normal NEGATIVE/ TRACE [facility] Comment on above: Performed By: #### M G, CMP, TSH, T7, BNP #### [facility] [address] [place] [address] Dr. Glenys Holly UR MICRO IND INDICATED Normal [facility] Comment on above: Performed By: #### M G, CMP, TSH, T7, BNP #### [facility] [address] [place] [address] Dr. Glenys Holly Urobilinogen Qn (U) 0.2 {Phoebe'U}/dL Normal 0.2 - 1. 0 [facility] Comment on above: Performed By: #### M G, CMP, TSH, T7, BNP #### [facility] [address] [place] [address] Dr. Glenys Holly LIPASEon 03-29-2022 Lipase [Catalytic activity/Vol] 62.0 U/L Critically low 73.0-393.0 [facility] Comment on above: Performed By: #### M G, CMP, TSH, T7, BNP #### [facility] [address] [place] [address] Dr. Glenys Holly PROF 14(COMP METB)on 022 Albumin [Mass/Vol] 3.7 g/dL Normal 3.4-5.0 [facility] Comment on above: Performed By: #### M G, CMP, TSH, T7, BNP #### [facility] [address] [place] [address] Dr. Glenys Holly Albumin/Globulin [Mass ratio] 1.2 {ratio} Normal [facility] Comment on above: Performed By: #### M G, CMP, TSH, T7, BNP #### [facility] [address] [place] [address] Dr. Glenys Holly ALP [Catalytic activity/Vol] 106 U/L Normal 46-116 [facility] Comment on above: Performed By: #### M G, CMP, TSH, T7, BNP #### [facility] [address] [place] [address] Dr. Glenys Holly ALT [Catalytic activity/Vol] 17 U/L Normal 14-59 [facility] Comment on above: Performed By: #### M G, CMP, TSH, T7, BNP #### [facility] [address] [place] [address] Dr. Glenys Holly Anion gap [Moles/Vol] 11.8 mmol/L Normal [facility] Comment on above: Performed By: #### M G, CMP, TSH, T7, BNP #### [facility] [address] [place] [address] Dr. Glenys Holly AST [Catalytic activity/Vol] 19 U/L Normal 15-37 [facility] Comment on above: Performed By: #### M G, CMP, TSH, T7, BNP #### [facility] [address] [place] [address] Dr. Glenys Holly Bilirubin [Mass/Vol] 0.8 mg/dL Normal 0.2-1.0 [facility] Comment on above: Performed By: #### M G, CMP, TSH, T7, BNP #### [facility] [address] [place] [address] Dr. Glenys Holly Calcium [Mass/Vol] 9.8 mg/dL Normal 8.5-10.1 [facility] Comment on above: Performed By: #### M G, CMP, TSH, T7, BNP #### [facility] [address] [place] [address] Dr. Glenys Holly Chloride [Moles/Vol] 101 mmol/L Normal 98-107 [facility] Comment on above: Performed By: #### M G, CMP, TSH, T7, BNP #### [facility] [address] [place] [address] Dr. Glenys Holly CO2 [Moles/Vol] 26.2 mmol/L Normal 21.0-32.0 [facility] Comment on above: Performed By: #### M G, CMP, TSH, T7, BNP #### [facility] [address] [address] [address] Glenys Holly Creatinine [Mass/Vol] 0.76 mg/dL Normal 0.55-1.02 [facility] Comment on above: Performed By: #### M G, CMP, TSH, T7, BNP #### [facility] [address] [address] [address] Glenys Holly EGFR-AF CITIZEN OF [place] >60 Normal >=60 [facility] Comment on above: Performed By: #### M G, CMP, TSH, T7, BNP #### [facility] [address] [address] [address] Glenys Holly EGFR-NON AF CITIZEN OF [place] >60 Normal >=60 [facility] Comment on above: Performed By: #### M G, CMP, TSH, T7, BNP #### [facility] [address] [place] [address] Dr. Glenys Holly Globulin (S) [Mass/Vol] 3.2 g/dL Normal [facility] Comment on above: Performed By: #### M G, CMP, TSH, T7, BNP #### [facility] [address] [place] [address] Dr. Glenys Holly Glucose [Mass/Vol] 103 mg/dL Normal 74-106 [facility] Comment on above: Performed By: #### M G, CMP, TSH, T7, BNP #### [facility] [address] [place] [address] Dr. Glenys Holly Potassium [Moles/Vol] 3.0 mmol/L Critically low 3.5-5.1 [facility] Comment on above: Performed By: #### M G, CMP, TSH, T7, BNP #### [facility] [address] [place] [address] Dr. Glenys Holly Protein [Mass/Vol] 6.9 g/dL Normal 6.4-8.2 [facility] Comment on above: Performed By: #### M G, CMP, TSH, T7, BNP #### [facility] [address] [place] [address] Dr. Glenys Holly Sodium [Moles/Vol] 136 mmol/L Normal 136-145 [facility] Comment on above: Performed By: #### M G, CMP, TSH, T7, BNP #### [facility] [address] [address] [address] Glenys Holly Urea nitrogen [Mass/Vol] 16.0 mg/dL Normal 7.0-18.0 [facility] Comment on above: Performed By: #### M G, CMP, TSH, T7, BNP #### [facility] [address] [place] [address] Dr. Glenys Holly Urea nitrogen/Creatinine [Mass ratio] 21.1 mg/mg Normal [facility] Comment on above: Performed By: #### M G, CMP, TSH, T7, BNP #### [facility] [address] [place] [address] Dr. Glenys Holly TROPONIN, HIGH SENSITIVITYon 03-29-2022 HSTROP 30.7 pg/mL Normal 4.0-51.3 [facility] Comment on above: Result Comment: CUT- OFF POINTS HAVE BEEN ESTABLISHED BASED ON THE FOURTH UNIVERSAL DEFINITIONS OF MYOCARDIAL INFARCTION. THE UPPER REFERENCE LIMIT (URL) OF TROPONIN, DEFINED THE 99TH PERCENTILE OF cTnI DISTRIBUTION IN A REFERENCE POPULATION, HAS BEEN CONFIRMED THE DECISION THRESHOLD FOR [place] DIAGNOSIS. Performed By: #### M G, CMP, TSH, T7, BNP #### [facility] [address] [place] [address] Dr. Glenys Holly URINE MICROSCOPIC ONLYon BACTERIA MODERATE Abnormal NONE SEEN [facility] Comment on above: Performed By: #### M G, CMP, TSH, T7, BNP #### [facility] [address] [place] [address] Dr. Glenys Holly Bacteria identified Cx Nom (U) INDICATED Normal [facility] Comment on above: Performed By: #### M G, CMP, TSH, T7, BNP #### [facility] [address] [place] [address] Dr. Glenys Holly CA OX CRYSTALS MODERATE Normal [facility] Comment on above: Performed By: #### M G, CMP, TSH, T7, BNP #### [facility] [address] [place] [address] Dr. Glenys Holly CAST NONE SEEN Normal NONE SEEN [facility] Comment on above: Performed By: #### M G, CMP, TSH, T7, BNP #### [facility] [address] [address] [address] Glenys Holly Crystals LM Nom (Urine sed) SEEN Abnormal NONE SEEN [facility] Comment on above: Performed By: #### M G, CMP, TSH, T7, BNP #### [facility] [address] [address] [address] Glenys Holly Epithelial cells LM Ql (Urine sed) FEW Abnormal NONE SEEN /RARE [facility] Comment on above: Performed By: #### M G, CMP, TSH, T7, BNP #### [facility] [address] [place] [address] Dr. Glenys Holly MUCOUS NONE SEEN Normal NONE SEEN [facility] Comment on above: Performed By: #### M G, CMP, TSH, T7, BNP #### [facility] [address] [address] [address] Glenys Holly RBC 5-10 Abnormal 0-2 [facility] Comment on above: Performed By: #### M G, CMP, TSH, T7, BNP #### [facility] [address] [place] [address] Dr. Glenys Holly WBC 20-50 Abnormal NONE SEEN [facility] Comment on above: Performed By: #### M G, CMP, TSH, T7, BNP #### [facility] [address] [place] [address] Dr. Glenys Holly XR ABD FLAT UP_PA [...] RAMIRO SPENCER Date: 2022-03-29 09:27 Normal [facility] CT HEAD WO CONon 12-27-2021 [...] RAMIRO SPENCER Date: 2021-12-27 12:48 Normal [facility] Discharge Summaryon 08-18-19 18 Discharge Summary MR#: [id number] [facility] Pt. Name: Judith Khan Admitted: 08/11/2017 [...] the outside facility.Upon arrival to the [facility], no other injuries were noted. The patientwas [...] 4-6 hours as needed for pain and Rnrioh149 mg b.i.d. for opioid related constipation.Electronically Signed by:Supa May M.D. 08/29/2017 12:01 P Supa May M.D. I personally saw this patient on the day of the encounter, performed thekey portion(s) of the service and participated in the management andconfirm the resident's documentation. Please note there may be anadditional personal documentation from me. Date Dict: 08/16/2017/10:11 A/Josh Palmer, MDDate Trans: 08/17/2017 06:00 A/[id number] Normal [facility] BASIC METABOLIC PANELon 03-0 Calcium 8.8 mg/dL Normal 8.6-10.3 [facility] Comment on above: Order Comment: No: D o not add to previous draw Performed By: #### 0 0121, 89984 ####[facility] [place] [address], [facility] Chloride 97 mmol/L Low 98-107 [facility] Comment on above: Order Comment: No: D o not add to previous draw Performed By: #### 0 0121, 63888 ####[facility] [facility] [place] [address], [facility] CO2 33 mmol/L High 21-31 [facility] Comment on above: Order Comment: No: D o not add to previous draw Performed By: #### 0 0121, 54743 ####[facility] [place] [address], [facility] Creatinine 0.75 mg/dL Normal 0.60-1.20 [facility] Comment on above: Order Comment: No: D o not add to previous draw Performed By: #### 0 0121, 84333 ####[facility] [place] [address], [facility] eGFR (black) mL/min/{1.73_m2} Normal >60 [facility] Comment on above: Order Comment: No: D o not add to previous draw Result Comment: Calc ulation may not be valid for patients over 70 years Performed By: #### 0 0121, 07118 ####[facility] [place] [address], [facility] eGFR (non-black) mL/min/{1.73_m2} Normal >60 [facility] Comment on above: Order Comment: No: D o not add to previous draw Result Comment: Calc ulation may not be valid for patients over 70 years Performed By: #### 0 0121, 58972 ####[facility] [place] [address], [facility] Glucose mass conc 91 mg/dL Normal 70-100 [facility] Comment on above: Order Comment: No: D o not add to previous draw Performed By: #### 0 0121, 58426 ####[facility] [place] [address], [facility] Potassium molar conc 2.8 mmol/L Low 3.5-5.1 [facility] Comment on above: Order Comment: No: D o not add to previous draw Performed By: #### 0 0121, 39829 ####[facility] [place] [address], [facility] Sodium 137 mmol/L Normal 136-145 [facility] Comment on above: Order Comment: No: D o not add to previous draw Performed By: #### 0 0121, 52975 ####[facility] [place] [address], [facility] Urea nitrogen 13 mg/dL Normal 7-25 [facility] Comment on above: Order Comment: No: D o not add to previous draw Performed By: #### 0 0121, 70591 ####[facility] [place] [address], [facility] CBC COMPLETE BLOOD COUNTon 0 08-15-2017 Erythrocyte distribution width Auto Ratio (RBC) 14.6 % Normal 11.5-15.0 [facility] Comment on above: Order Comment: No: D o not add to previous draw Performed By: #### 5 610, 35599 ####[facility] Erythrocytes (RBC) 4.05 10*6/uL Normal 3.80-5.00 [facility] Comment on above: Order Comment: No: D o not add to previous draw Performed By: #### 5 6100, 26268 ####[facility] Erythrocytes (RBC) 0 % Normal 0-0 [facility] Comment on above: Order Comment: No: D o not add to previous draw Performed By: #### 5 6100, 25929 ####[facility] Hematocrit (HCT) 36.8 % Normal 36.0-45.0 [facility] Comment on above: Order Comment: No: D o not add to previous draw Performed By: #### 5 6100, 27133 ####[facility] Hemoglobin mass conc (Bld) 12.3 g/dL Normal 12.0-15.0 [facility] Comment on above: Order Comment: No: D o not add to previous draw Performed By: #### 5 6100, 17372 ####[facility] [place] [address], [facility] MCH 30.4 pg Normal 27.0-33.0 [facility] Comment on above: Order Comment: No: D o not add to previous draw Performed By: #### 5 610, 36148 ####[facility] [place] [address], [facility] MCHC mass conc (RBC) 33.4 g/dL Normal 32.0-35.0 [facility] Comment on above: Order Comment: No: D o not add to previous draw Performed By: #### 5 6101, 16240 ####[address] MCV 90.9 fL Normal 82.0-98.0 [facility] Comment on above: Order Comment: No: D o not add to previous draw Performed By: #### 5 6101, 24618 ####[facility] PLAT CNT 196 10*3/uL Normal 150-400 [facility] Comment on above: Order Comment: No: D o not add to previous draw Performed By: #### 5 6101, 42991 ####[address] [address] [address] WBC (Leukocytes) 11.0 10*3/uL High 4.0-10.6 [facility] Comment on above: Order Comment: No: D o not add to previous draw Performed By: #### 5 6101, 53774 ####[address] PORTABLE CHEST 1 VIEWon 03-0 PORTABLE CHEST 1 VIEW [facility] [address] [place] [address] Patient Name: JUDITH KHAN : 1945Sex: FAge: Race: WhiteMRN: [id number]. Location: [id number] Status: IVisit #: [id number] Date: 08/15/2017 7:05:00 AMCompleted Date: 08/15/2017 07:54 AMRequesting Provider: JOSH PALMER Attending Provider: ALEXANDER OLSON Report Copy To: Signs & Symptoms: O2 DesaturationHistory: Patient history not availableComments: R/O EffusionExam: PORTABLE CHEST 1 VIEWAccession #: [id number] POR TABLE CHEST 1 VIEW 08/15/2017 7:54 [...] findings. Electronically signed by:Nina Beaver. Transcribed by: [email or web address], User Resident: JAZMIN MARElectronically Signed by: NINA BEAVER @ 08/15/2017 10:25 AMI personally read this/these film(s) with this resident Normal [facility] Comment on above: Order Comment: R/O E ffusion BASIC METABOLIC PANELon 03-0 Calcium 8.6 mg/dL Normal 8.6-10.3 [facility] Comment on above: Order Comment: No: D o not add to previous draw Performed By: #### 0 0121, 68478 ####[facility] [id number], [facility] Chloride 103 mmol/L Normal 98-107 [facility] Comment on above: Order Comment: No: D o not add to previous draw Performed By: #### 0 0121, 91533 ####[facility] [place] [address], [facility] CO2 30 mmol/L Normal 21-31 [facility] Comment on above: Order Comment: No: D o not add to previous draw Performed By: #### 0 0121, 55564 ####[facility] [place] [address], [facility] Creatinine 0.60 mg/dL Normal 0.60-1.20 [facility] Comment on above: Order Comment: No: D o not add to previous draw Performed By: #### 0 0121, 22235 ####[facility] [facility] [place] [address], [facility] eGFR (black) mL/min/{1.73_m2} Normal >60 [facility] Comment on above: Order Comment: No: D o not add to previous draw Result Comment: Calc ulation may not be valid for patients over 70 years Performed By: #### 0 0121, 69807 ####[facility] [facility] [place] [address], [facility] eGFR (non-black) mL/min/{1.73_m2} Normal >60 [facility] Comment on above: Order Comment: No: D o not add to previous draw Result Comment: Calc ulation may not be valid for patients over 70 years Performed By: #### 0 0121, 30297 ####[facility] [place] [address], [facility] Glucose mass conc 81 mg/dL Normal 70-100 [facility] Comment on above: Order Comment: No: D o not add to previous draw Performed By: #### 0 0121, 91724 ####[facility] Potassium molar conc 3.0 mmol/L Low 3.5-5.1 [facility] Comment on above: Order Comment: No: D o not add to previous draw Performed By: #### 0 0121, 32683 ####[facility] [facility].[address] Sodium 138 mmol/L Normal 136-145 [facility] Comment on above: Order Comment: No: D o not add to previous draw Performed By: #### 0 0121, 77966 ####[place] [address] [address] Urea nitrogen 12 mg/dL Normal 7-25 [facility] Comment on above: Order Comment: No: D o not add to previous draw Performed By: #### 0 0121, 94241 ####[place] [address] [facility].[address] CBC COMPLETE BLOOD COUNTon 0 08-14-2017 Erythrocyte distribution width Auto Ratio (RBC) 14.9 % Normal 11.5-15.0 [facility] Comment on above: Order Comment: No: D o not add to previous draw Performed By: #### 0 0121, 57187 ####[place] [address] [facility].[address] Erythrocytes (RBC) 3.80 10*6/uL Normal 3.80-5.00 [facility] Comment on above: Order Comment: No: D o not add to previous draw Performed By: #### 0 0121, 34112 ####[facility] [facility].[address] Erythrocytes (RBC) 0 % Normal 0-0 [facility] Comment on above: Order Comment: No: D o not add to previous draw Performed By: #### 0 0121, 58777 ####[facility] Hematocrit (HCT) 34.3 % Low 36.0-45.0 [facility] Comment on above: Order Comment: No: D o not add to previous draw Performed By: #### 0 0121, 49120 ####[facility] Hemoglobin mass conc (Bld) 11.7 g/dL Low 12.0-15.0 [facility] Comment on above: Order Comment: No: D o not add to previous draw Performed By: #### 0 0121, 78817 ####[facility] MCH 30.8 pg Normal 27.0-33.0 [facility] Comment on above: Order Comment: No: D o not add to previous draw Performed By: #### 0 0121, 94637 ####[facility] MCHC mass conc (RBC) 34.1 g/dL Normal 32.0-35.0 [facility] Comment on above: Order Comment: No: D o not add to previous draw Performed By: #### 0 0121, 62932 ####[facility] MCV 90.3 fL Normal 82.0-98.0 [facility] Comment on above: Order Comment: No: D o not add to previous draw Performed By: #### 0 0121, 02363 ####[facility] PLAT CNT 134 10*3/uL Low 150-400 [facility] Comment on above: Order Comment: No: D o not add to previous draw Performed By: #### 0 0121, 29516 ####[facility] WBC (Leukocytes) 11.5 10*3/uL High 4.0-10.6 [facility] Comment on above: Order Comment: No: D o not add to previous draw Performed By: #### 0 0121, 83581 ####[facility] MAGNESIUM BLOODon 08-14-2017 Magnesium 1.9 mg/dL Normal 1.9-2.7 [facility] Comment on above: Order Comment: No: D o not add to previous draw Performed By: #### 0 0121, 84524 ####[facility] [place] [address], [facility] PHOSPHORUS BLOODon 8 Phosphate 2.5 mg/dL Normal 2.5-5.0 [facility] Comment on above: Order Comment: No: D o not add to previous draw Performed By: #### 0 0121, 35811 ####[facility] [place] [address] PORTABLE CHEST 1 VIEWon PORTABLE CHEST 1 VIEW [facility] [address] [place] [address] Patient Name: JUDITH KHAN : 1945Sex: FAge: Race: WhiteMRN: [id number]. Location: [id number] Status: IVisit #: [id number] Date: 08/14/2017 8:00:00 AMCompleted Date: 08/14/2017 08:34 AMRequesting Provider: JOSH PALMER Attending Provider: ALEXANDER OLSON Report Copy To: Signs & Symptoms: O2 DesaturationHistory: Patient history not availableComments: R/O AtelectasisExam: PORTABLE CHEST 1 VIEWAccession #: [id number] POR TABLE CHEST 1 VIEW 08/14/2017 8:34 [...] findings. Electronically signed by:Kristian Nascimento. Transcribed by: [email or web address], User Resident: JAZMIN MARElectronically Signed by: KRISTIAN NASCIMENTO @ 08/14/2017 09:18 PMI personally read this/these film(s) with this resident Normal [facility] Comment on above: Order Comment: R/O A telectasis BASIC METABOLIC PANELon 03-0 Calcium 8.4 mg/dL Low 8.6-10.3 [facility] Comment on above: Order Comment: No: D o not add to previous draw Performed By: #### 0 0121, 71668 ####[facility] [place] [address], [facility] Chloride 109 mmol/L High 98-107 [facility] Comment on above: Order Comment: No: D o not add to previous draw Performed By: #### 0 0121, 52089 ####[facility] [facility] [place] [address], [facility] CO2 30 mmol/L Normal 21-31 [facility] Comment on above: Order Comment: No: D o not add to previous draw Performed By: #### 0 0121, 08123 ####[facility] [place] [address], [facility] Creatinine 0.62 mg/dL Normal 0.60-1.20 [facility] Comment on above: Order Comment: No: D o not add to previous draw Performed By: #### 0 0121, 87973 ####[facility] [place] [address], [facility] eGFR (black) mL/min/{1.73_m2} Normal >60 [facility] Comment on above: Order Comment: No: D o not add to previous draw Result Comment: Calc ulation may not be valid for patients over 70 years Performed By: #### 0 0121, 07097 ####[facility] [facility].[address] eGFR (non-black) mL/min/{1.73_m2} Normal >60 [facility] Comment on above: Order Comment: No: D o not add to previous draw Result Comment: Calc ulation may not be valid for patients over 70 years Performed By: #### 0 0121, 72930 ####[facility] [place] [address], [facility] Glucose mass conc 99 mg/dL Normal 70-100 [facility] Comment on above: Order Comment: No: D o not add to previous draw Performed By: #### 0 0121, 22793 ####[facility] [place] [address], [facility] Potassium molar conc 3.2 mmol/L Low 3.5-5.1 [facility] Comment on above: Order Comment: No: D o not add to previous draw Performed By: #### 0 0121, 83623 ####[facility] [facility].[address] Sodium 143 mmol/L Normal 136-145 [facility] Comment on above: Order Comment: No: D o not add to previous draw Performed By: #### 0 0121, 35170 ####[facility] Urea nitrogen 14 mg/dL Normal 7-25 [facility] Comment on above: Order Comment: No: D o not add to previous draw Performed By: #### 0 0121, 43971 ####[facility] CBC COMPLETE BLOOD COUNTon 0 - Erythrocyte distribution width Auto Ratio (RBC) 15.9 % High 11.5-15.0 [facility] Comment on above: Order Comment: No: D o not add to previous draw Performed By: #### 0 0121, 78683 ####[facility] Erythrocytes (RBC) 0 % Normal 0-0 [facility] Comment on above: Order Comment: No: D o not add to previous draw Performed By: #### 0 0121, 98759 ####[facility] [facility].[address] Erythrocytes (RBC) 3.76 10*6/uL Low 3.80-5.00 [facility] Comment on above: Order Comment: No: D o not add to previous draw Performed By: #### 0 0121, 36628 ####[facility] Hematocrit (HCT) 34.3 % Low 36.0-45.0 [facility] Comment on above: Order Comment: No: D o not add to previous draw Performed By: #### 0 0121, 06586 ####[facility] [facility].[address] Hemoglobin mass conc (Bld) 11.4 g/dL Low 12.0-15.0 [facility] Comment on above: Order Comment: No: D o not add to previous draw Performed By: #### 0 0121, [id number] ####[facility] [facility].[address] MCH 30.3 pg Normal 27.0-33.0 [facility] Comment on above: Order Comment: No: D o not add to previous draw Performed By: #### 0 0121, 97742 ####[facility] [facility].[address] MCHC mass conc (RBC) 33.2 g/dL Normal 32.0-35.0 [facility] Comment on above: Order Comment: No: D o not add to previous draw Performed By: #### 0 0121, 51476 ####[facility] [facility].[address] MCV 91.2 fL Normal 82.0-98.0 [facility] Comment on above: Order Comment: No: D o not add to previous draw Performed By: #### 0 0121, 34848 ####[facility] [facility].[address] PLAT CNT 95 10*3/uL Low 150-400 [facility] Comment on above: Order Comment: No: D o not add to previous draw Performed By: #### 0 0121, 71720 ####[facility] [place] [address], [facility] WBC (Leukocytes) 9.1 10*3/uL Normal 4.0-10.6 [facility] Comment on above: Order Comment: No: D o not add to previous draw Performed By: #### 0 0121, 15861 ####[facility] [facility] [place] [address], [facility] MAGNESIUM BLOODon 08-13-2017 Magnesium 1.8 mg/dL Low 1.9-2.7 [facility] Comment on above: Order Comment: No: D o not add to previous draw Performed By: #### 0 0121, 57209 ####[facility] [place] [address], [facility] PHOSPHORUS BLOODon 8 Phosphate 1.9 mg/dL Low 2.5-5.0 [facility] Comment on above: Order Comment: No: D o not add to previous draw Performed By: #### 0 0121, 88676 ####[place] [address] [facility].[address] BASIC METABOLIC PANELon Calcium 8.4 mg/dL Low 8.6-10.3 [facility] Comment on above: Order Comment: No: D o not add to previous draw Performed By: #### 0 0121, 12988 ####[facility] [place] [address], [facility] Chloride 113 mmol/L High 98-107 [facility] Comment on above: Order Comment: No: D o not add to previous draw Performed By: #### 0 0121, 43637 ####[facility] [place] [address], [facility] CO2 25 mmol/L Normal 21-31 [facility] Comment on above: Order Comment: No: D o not add to previous draw Performed By: #### 0 0121, 12033 ####[facility] [place] [address], [facility] Creatinine 0.75 mg/dL Normal 0.60-1.20 [facility] Comment on above: Order Comment: No: D o not add to previous draw Performed By: #### 0 0121, 42002 ####[facility] eGFR (black) mL/min/{1.73_m2} Normal >60 [facility] Comment on above: Order Comment: No: D o not add to previous draw Result Comment: Calc ulation may not be valid for patients over 70 years Performed By: #### 0 0121, 17726 ####[facility] [place] [address], [facility] eGFR (non-black) mL/min/{1.73_m2} Normal >60 [facility] Comment on above: Order Comment: No: D o not add to previous draw Result Comment: Calc ulation may not be valid for patients over 70 years Performed By: #### 0 0121, 68872 ####[facility] [place] [address], [facility] Glucose mass conc 116 mg/dL High 70-100 [facility] Comment on above: Order Comment: No: D o not add to previous draw Performed By: #### 0 0121, 52270 ####[facility] [place] [address], [facility] Potassium molar conc 3.6 mmol/L Normal 3.5-5.1 [facility] Comment on above: Order Comment: No: D o not add to previous draw Performed By: #### 0 0121, 61424 ####[facility] [place] [address], [facility] Sodium 144 mmol/L Normal 136-145 [facility] Comment on above: Order Comment: No: D o not add to previous draw Performed By: #### 0 0121, 48735 ####[facility] [place] [address], [facility] Urea nitrogen 16 mg/dL Normal 7-25 [facility] Comment on above: Order Comment: No: D o not add to previous draw Performed By: #### 0 0121, 69702 ####[facility] CBC COMPLETE BLOOD COUNTon 0 08-12-2017 Erythrocyte distribution width Auto Ratio (RBC) 16.3 % High 11.5-15.0 [facility] Comment on above: Order Comment: No: D o not add to previous draw Performed By: #### 0 0121, 43076 ####[facility]3000 [facility].[address] Erythrocytes (RBC) 4.15 10*6/uL Normal 3.80-5.00 [facility] Comment on above: Order Comment: No: D o not add to previous draw Performed By: #### 0 0121, 93680 ####[place] [address] [address] Erythrocytes (RBC) 0 % Normal 0-0 [facility] Comment on above: Order Comment: No: D o not add to previous draw Performed By: #### 0 0121, 03546 ####[facility] [facility].[address] Hematocrit (HCT) 37.6 % Normal 36.0-45.0 [facility] Comment on above: Order Comment: No: D o not add to previous draw Performed By: #### 0 0121, 07967 ####[place] [address] [address] Hemoglobin mass conc (Bld) 12.5 g/dL Normal 12.0-15.0 [facility] Comment on above: Order Comment: No: D o not add to previous draw Performed By: #### 0 0121, 58206 ####[place] [address] [facility].[address] MCH 30.1 pg Normal 27.0-33.0 [facility] Comment on above: Order Comment: No: D o not add to previous draw Performed By: #### 0 0121, 64211 ####[place] [address] MCHC mass conc (RBC) 33.2 g/dL Normal 32.0-35.0 [facility] Comment on above: Order Comment: No: D o not add to previous draw Performed By: #### 0 0121, 56784 ####[address] MCV 90.6 fL Normal 82.0-98.0 [facility] Comment on above: Order Comment: No: D o not add to previous draw Performed By: #### 0 0121, 47043 ####[address] PLAT CNT 89 10*3/uL Low 150-400 [facility] Comment on above: Order Comment: No: D o not add to previous draw Performed By: #### 0 0121, 08808 ####[address] WBC (Leukocytes) 13.5 10*3/uL High 4.0-10.6 [facility] Comment on above: Order Comment: No: D o not add to previous draw Performed By: #### 0 0121, 39520 ####[address] HEMATOCRITon 08-12-2017 Hematocrit (HCT) 37.6 % Normal 36.0-45.0 [facility] Comment on above: Order Comment: No: D o not add to previous draw Performed By: #### 0 0121, 66576 ####[place] [address] [facility].[address] HEMOGLOBINon 08-12-2017 Hemoglobin mass conc (Bld) 12.6 g/dL Normal 12.0-15.0 [facility] Comment on above: Order Comment: No: D o not add to previous drawLAB DRAW NOW - PER CECY MCELROY Performed By: #### 0 0121, 66252 ####[facility] [place] [address], [facility] MAGNESIUM BLOODon 08-12-2017 Magnesium 1.9 mg/dL Normal 1.9-2.7 [facility] Comment on above: Order Comment: No: D o not add to previous draw Performed By: #### 0 0121, 12013 ####[facility] [facility] [place] [address], [facility] PHOSPHORUS BLOODon 8 Phosphate 2.1 mg/dL Low 2.5-5.0 [facility] Comment on above: Order Comment: No: D o not add to previous draw Performed By: #### 0 0121, 81495 ####[facility] [place] [address], [facility] PORTABLE CHEST 1 VIEWon PORTABLE CHEST 1 VIEW [facility] Alcwsktra[address] [place], [place] [id number] Patient Name: JUDITH KHAN : 1945Sex: FAge: Race: WhiteMRN: [id number]. Location: [id number] Status: IVisit #: [id number] Date: 08/12/2017 7:00:00 AMCompleted Date: 08/12/2017 09:16 AMRequesting Provider: SHANON HERNANDEZ Attending Provider: ALEXANDER OLSON Report Copy To: Signs & Symptoms: O2 DesaturationHistory: Patient history not availableComments: R/O AtelectasisExam: PORTABLE CHEST 1 VIEWAccession #: [id number] POR TABLE CHEST 1 VIEW 08/12/2017 9:16 [...] findings. Electronically signed by:Kristian Nascimento. Transcribed by: [email or web address], User Resident: [email or web address] TORRESElectronically Signed by: KRISTIAN NASCIMENTO @ 08/12/2017 12:27 PMI personally read this/these film(s) with this resident Normal [facility] Comment on above: Order Comment: R/O A telectasis ALCOHOLon 08-11-2017 Ethanol NONE DETECTED Normal [facility] Comment on above: Result Comment: Divi de by 1000 to convert mg/dL to percent. Example: 100mg/dL = 0.1%. Performed By: #### 1 0054, 62039 ####[facility] [place] [address], [facility] APTTon 08-11-2017 aPTT 42.8 s High 25.0-35.0 [facility] Comment on above: Order Comment: No: D [...] FOR THIS PURPOSE. Performed By: #### 1 ####[facility] aPTT 27.2 s Normal 25.0-35.0 [facility] Comment on above: Result Comment: ALL RESULTS [...] THIS PURPOSE. Performed By: #### 5 6101, 91202 ####[facility] ARTERIAL BLOOD GAS WITH ICAo n 08-11-2017 BASE EXCESS -7 mmol/L Low -2-2 [facility] Comment on above: Performed By: #### 1 ####[facility] Bicarbonate (HCO3) 18 mmol/L Low 23-27 [facility] Comment on above: Performed By: #### 1 ####[facility] CO2 34 mmHg Low 35-45 [facility] Comment on above: Performed By: #### 1 ####[facility] [place] [address], [facility] DELIVERY SYSTEMS MV Normal [facility] Comment on above: Performed By: #### 1 ####[facility] [place] [address], [facility] FIO2 40 % Normal 21-100 [facility] Comment on above: Performed By: #### 1 ####[facility] [place] [address], [place] IONIZED CALCIUM 1.13 mmol/L Normal 1.13-1.32 [facility] Comment on above: Performed By: #### 1 53, ####[facility] [place] [address], [place] MIN VOLUME 7.2 Normal [facility] Comment on above: Performed By: #### 1 ####[facility] [place] [address], [place] MODALITY AC Normal [facility] Comment on above: Performed By: #### 1 ####[facility] [place] [address], [place] O2 saturation 95.5 % Normal 94.0-97.0 [facility] Comment on above: Performed By: #### 1 ####[facility] [place] [address], [place] Oxygen in arterial blood 161 mm[Hg] Critically high 75-100 [facility] Comment on above: Performed By: #### 1 ####[facility] [place] [address], [place] PEEP 5.0 CMH20 Normal [facility] Comment on above: Performed By: #### ####[facility] [place] [address], [place] PF RATIO 403 mmHg High 50-400 [facility] Comment on above: Performed By: #### ####[facility] [place] [address], [place] pH of blood 7.33 [pH] Low 7.35-7.45 [facility] Comment on above: Performed By: #### 1 53, ####[facility] [place] [address], [facility] Respiratory rate 16 /min Normal [facility] Comment on above: Performed By: #### 1 53, ####[facility] [place] [address], [facility] TIDAL VOLUME (VT) CC 450 Normal [facility] Comment on above: Performed By: #### 1 53, ####[facility] [place] [address], [facility] BASE EXCESS -9 mmol/L Low -2-2 [facility] Comment on above: Order Comment: RESUL TS CHECKED AND CALLED. ACCURATELY READ BACK BY ADT Performed By: #### 1 53, ####[facility] [place] [address], [facility] Bicarbonate (HCO3) 18 mmol/L Low 23-27 [facility] Comment on above: Order Comment: RESUL TS CHECKED AND CALLED. ACCURATELY READ BACK BY DAT Performed By: #### 1 ####[facility] [place] [address], [facility] CO2 44 mmHg Normal 35-45 [facility] Comment on above: Order Comment: RESUL TS CHECKED AND CALLED. ACCURATELY READ BACK BY DAT Performed By: #### 1 ####[facility] [place] [address], [facility] IONIZED CALCIUM 1.05 mmol/L Low 1.13-1.32 [facility] Comment on above: Order Comment: RESUL TS CHECKED AND CALLED. ACCURATELY READ BACK BY DAT Performed By: #### 1 53, ####[facility] [place] [address], [place] O2 saturation 96.9 % Normal 94.0-97.0 [facility] Comment on above: Order Comment: RESUL TS CHECKED AND CALLED. ACCURATELY READ BACK BY DAT Performed By: #### 1 53, ####[facility] [place] [address], [facility] Oxygen in arterial blood 532 mm[Hg] Critically high 75-100 [facility] Comment on above: Order Comment: RESUL TS CHECKED AND CALLED. ACCURATELY READ BACK BY DAT Performed By: #### 1 53, ####[facility] [place] [address], [facility] pH of blood 7.22 [pH] Critically low 7.35-7.45 [facility] Comment on above: Order Comment: RESUL TS CHECKED AND CALLED. ACCURATELY READ BACK BY DAT Performed By: #### 1 53, ####[facility] [facility] [place] [address], [facility] BASIC METABOLIC PANELon 03-0 Calcium 8.1 mg/dL Low 8.6-10.3 [facility] Comment on above: Order Comment: No: D o not add to previous draw Performed By: #### 1 53, ####[facility] [facility] [place] [address], [facility] Chloride 116 mmol/L High 98-107 [facility] Comment on above: Order Comment: No: D o not add to previous draw Performed By: #### 1 53, ####[facility] [facility] [place] [address], [facility] Creatinine 0.85 mg/dL Normal 0.60-1.20 [facility] Comment on above: Order Comment: No: D o not add to previous draw Performed By: #### 1 53, ####[facility] [place] [address], [facility] Glucose mass conc 109 mg/dL High 70-100 [facility] Comment on above: Order Comment: No: D o not add to previous draw Performed By: #### 1 53, ####[facility] [place] [address], [facility] Potassium molar conc 4.9 mmol/L Normal 3.5-5.1 [facility] Comment on above: Order Comment: No: D o not add to previous draw Performed By: #### 1 53, ####[facility] [place] [address], [facility] Sodium 142 mmol/L Normal 136-145 [facility] Comment on above: Order Comment: No: D o not add to previous draw Performed By: #### 1 53, ####[facility] [place] [address], [facility] Urea nitrogen 16 mg/dL Normal 7-25 [facility] Comment on above: Order Comment: No: D o not add to previous draw Performed By: #### 1 53, ####[facility] [place] [address], [facility] Calcium 7.9 mg/dL Low 8.6-10.3 [facility] Comment on above: Order Comment: No: D o not add to previous draw Performed By: #### 1 53, ####[facility] [place] [address], [facility] Chloride 113 mmol/L High 98-107 [facility] Comment on above: Order Comment: No: D o not add to previous draw Performed By: #### 1 53, ####[facility] [place] [address], [facility] CO2 22 mmol/L Normal 21-31 [facility] Comment on above: Order Comment: No: D o not add to previous draw Performed By: #### 1 53, ####[facility] Creatinine 0.68 mg/dL Normal 0.60-1.20 [facility] Comment on above: Order Comment: No: D o not add to previous draw Performed By: #### 1 53, ####[facility] eGFR (black) mL/min/{1.73_m2} Normal >60 [facility] Comment on above: Order Comment: No: D o not add to previous draw Result Comment: Calc ulation may not be valid for patients over 70 years Performed By: #### 1 53, ####[facility] [facility].[address] eGFR (non-black) mL/min/{1.73_m2} Normal >60 [facility] Comment on above: Order Comment: No: D o not add to previous draw Result Comment: Calc ulation may not be valid for patients over 70 years Performed By: #### 1 53, ####[facility] Glucose mass conc 141 mg/dL High 70-100 [facility] Comment on above: Order Comment: No: D o not add to previous draw Performed By: #### 1 53, ####[facility] [place] [address], [facility] Potassium molar conc 3.3 mmol/L Low 3.5-5.1 [facility] Comment on above: Order Comment: No: D o not add to previous draw Performed By: #### 1 53, ####[facility] [place] [address], [facility] Sodium 139 mmol/L Normal 136-145 [facility] Comment on above: Order Comment: No: D o not add to previous draw Performed By: #### 1 53, ####[facility] Urea nitrogen 12 mg/dL Normal 7-25 [facility] Comment on above: Order Comment: No: D o not add to previous draw Performed By: #### 1 53, ####[place] [address] [address] CBC W/DIFFon 08-11-2017 ABS BASOPHILS 0.0 10*3/uL Normal 0.0-0.2 [facility] Comment on above: Performed By: #### 1 53, ####[facility] ABS IMM GRANS 0.0 10*3/uL Normal 0.0-0.2 [facility] Comment on above: Performed By: #### 1 53, ####[address] Basophils Auto #/vol (Bld) 0.1 % Normal 0.0-1.0 [facility] Comment on above: Performed By: #### 1 ####[place] [address] [address] Eosinophils 0.0 10*3/uL Normal 0.0-0.5 [facility] Comment on above: Performed By: #### 1 53, ####[place] [address] [address] Eosinophils/100 leukocytes 0.1 % Normal 0.0-6.0 [facility] Comment on above: Performed By: #### 1 53, ####[address] Erythrocyte distribution width Auto Ratio (RBC) 15.1 % High 11.5-15.0 [facility] Comment on above: Performed By: #### 1 ####[facility] [facility].[address] Erythrocytes (RBC) 0 % Normal 0-0 [facility] Comment on above: Performed By: #### 1 ####[facility] [facility].[address] Erythrocytes (RBC) 4.46 10*6/uL Normal 3.80-5.00 [facility] Comment on above: Performed By: #### 1 ####[facility] Hematocrit (HCT) 40.3 % Normal 36.0-45.0 [facility] Comment on above: Performed By: #### 1 ####[facility] Hemoglobin mass conc (Bld) 13.5 g/dL Normal 12.0-15.0 [facility] Comment on above: Performed By: #### 1 ####[place] [address] [address] IMMATURE GRANS 0.2 % Normal 0.0-1.0 [facility] Comment on above: Performed By: #### 1 ####[facility]3000 [facility].[address] Lymphocytes 0.9 10*3/uL Low 1.2-4.0 [facility] Comment on above: Performed By: #### 1 ####[facility] Lymphocytes/100 leukocytes 5.8 % Low 20.0-45.0 [facility] Comment on above: Performed By: #### 1 ####[facility] [facility].[address] MCH 30.3 pg Normal 27.0-33.0 [facility] Comment on above: Performed By: #### 1 ####[facility] [facility].[address] MCHC mass conc (RBC) 33.5 g/dL Normal 32.0-35.0 [facility] Comment on above: Performed By: #### 1 53, ####[facility] [facility].[address] MCV 90.4 fL Normal 82.0-98.0 [facility] Comment on above: Performed By: #### 1 ####[facility] [facility].[address] Monocytes 0.7 10*3/uL Normal 0.1-1.0 [facility] Comment on above: Performed By: #### 1 ####[facility] [facility].[address] MONOS 4.6 % Low 5.0-12.0 [facility] Comment on above: Performed By: #### 1 ####[facility] [facility].[address] Neutrophils 13.6 10*3/uL High 1.6-7.6 [facility] Comment on above: Performed By: #### 1 53, ####[facility] [facility].[address] Neutrophils/100 leukocytes 89.2 % High 40.0-72.0 [facility] Comment on above: Performed By: #### 1 53, ####[facility] [facility].[address] PLAT CNT 94 10*3/uL Low 150-400 [facility] Comment on above: Result Comment: P = 126 Performed By: #### 1 53, ####[facility] WBC (Leukocytes) 15.2 10*3/uL High 4.0-10.6 [facility] Comment on above: Performed By: #### 1 ####[facility] ABS BASOPHILS 0.0 10*3/uL Normal 0.0-0.2 [facility] Comment on above: Performed By: #### 5 102 ####[facility] ABS IMM GRANS 0.1 10*3/uL Normal 0.0-0.2 [facility] Comment on above: Performed By: #### 5 010 ####[facility] Basophils Auto #/vol (Bld) 0.3 % Normal 0.0-1.0 [facility] Comment on above: Performed By: #### 102 ####[facility]3000 [facility].[address] Eosinophils 0.0 10*3/uL Normal 0.0-0.5 [facility] Comment on above: Performed By: #### 5 102 ####[facility] Eosinophils/100 leukocytes 0.2 % Normal 0.0-6.0 [facility] Comment on above: Performed By: #### 5 102 ####[facility] Erythrocyte distribution width Auto Ratio (RBC) 14.3 % Normal 11.5-15.0 [facility] Comment on above: Performed By: #### 5 0103 ####[facility] Erythrocytes (RBC) 3.50 10*6/uL Low 3.80-5.00 [facility] Comment on above: Performed By: #### 5 0103 ####[facility] [place] [address] Erythrocytes (RBC) 0 % Normal 0-0 [facility] Comment on above: Performed By: #### 5 0103 ####[place] [address] [address] Hematocrit (HCT) 32.5 % Low 36.0-45.0 [facility] Comment on above: Performed By: #### 5 0103 ####[place] [address] [address] Hemoglobin mass conc (Bld) 10.9 g/dL Low 12.0-15.0 [facility] Comment on above: Performed By: #### 5 0103 ####[address] IMMATURE GRANS 0.4 % Normal 0.0-1.0 [facility] Comment on above: Performed By: #### 5 0103 ####[facility] Lymphocytes 2.3 10*3/uL Normal 1.2-4.0 [facility] Comment on above: Performed By: #### 5 0103 ####[facility] Lymphocytes/100 leukocytes 17.6 % Low 20.0-45.0 [facility] Comment on above: Performed By: #### 5 0103 ####[facility] MCH 31.1 pg Normal 27.0-33.0 [facility] Comment on above: Performed By: #### 5 0103 ####[facility] MCHC mass conc (RBC) 33.5 g/dL Normal 32.0-35.0 [facility] Comment on above: Performed By: #### 5 0103 ####[facility] [facility].[address] MCV 92.9 fL Normal 82.0-98.0 [facility] Comment on above: Performed By: #### 5 0103 ####[facility] [facility].[address] Monocytes 0.8 10*3/uL Normal 0.1-1.0 [facility] Comment on above: Performed By: #### 5 0103 ####[facility]3000 [facility].[address] MONOS 6.1 % Normal 5.0-12.0 [facility] Comment on above: Performed By: #### 5 0103 ####[facility] [facility].[address] Neutrophils 9.7 10*3/uL High 1.6-7.6 [facility] Comment on above: Performed By: #### 5 0103 ####[facility] [facility].[address] Neutrophils/100 leukocytes 75.4 % High 40.0-72.0 [facility] Comment on above: Performed By: #### 5 0103 ####[facility] [place] [address], [facility] PLAT CNT 126 10*3/uL Low 150-400 [facility] Comment on above: Performed By: #### 5 0103 ####[facility] [facility].[address] WBC (Leukocytes) 12.9 10*3/uL High 4.0-10.6 [facility] Comment on above: Performed By: #### 5 0103 ####[facility] [facility].[address] COMP METABOLIC PANELon 08-11 Alanine aminotransferase (ALT) 8 U/L Normal 7-52 [facility] Comment on above: Performed By: #### 0 0121, 18132 ####[facility] Albumin 2.6 g/dL Low 3.5-5.7 [facility] Comment on above: Performed By: #### 0 0121, 68260 ####[facility] ALKALINE PHOSPH 34 IU/L Normal 34-104 [facility] Comment on above: Performed By: #### 0 0121, 83937 ####[facility] Aspartate aminotransferase (AST) 11 U/L Low 13-39 [facility] Comment on above: Performed By: #### 0 0121, 48515 ####[facility] [facility].[address] Bilirubin (total) 0.7 mg/dL Normal 0.3-1.0 [facility] Comment on above: Performed By: #### 0 0121, 52808 ####[facility] Calcium 7.4 mg/dL Low 8.6-10.3 [facility] Comment on above: Performed By: #### 0 0121, 62365 ####[facility] [place] [address], [facility] Chloride 112 mmol/L High 98-107 [facility] Comment on above: Performed By: #### 0 0121, 11227 ####[facility] [place] [address], [facility] CO2 22 mmol/L Normal 21-31 [facility] Comment on above: Performed By: #### 0 0121, 92825 ####[facility] [place] [address], [facility] Creatinine 0.83 mg/dL Normal 0.60-1.20 [facility] Comment on above: Performed By: #### 0 0121, 16070 ####[facility] [facility] [place] [address], [facility] eGFR (black) mL/min/{1.73_m2} Normal >60 [facility] Comment on above: Result Comment: Calc ulation may not be valid for patients over 70 years Performed By: #### 0 0121, 50663 ####[facility] [facility] [place] [place] [address], [facility] eGFR (non-black) mL/min/{1.73_m2} Normal >60 [facility] Comment on above: Result Comment: Calc ulation may not be valid for patients over 70 years Performed By: #### 0 0121, 72554 ####[facility] [place] [address], [place] Glucose mass conc 138 mg/dL High 70-100 [facility] Comment on above: Performed By: #### 0 0121, 79452 ####[facility] [place] [address], [place] Potassium molar conc 4.0 mmol/L Normal 3.5-5.1 [facility] Comment on above: Performed By: #### 0 0121, 19828 ####[id number] [place] [address], [facility] Protein 4.1 g/dL Low 6.0-8.3 [facility] Comment on above: Performed By: #### 0 0121, 07712 ####[facility] [place] [address], [facility] Sodium 138 mmol/L Normal 136-145 [facility] Comment on above: Performed By: #### 0 0121, 68798 ####[facility] [place] [address], [facility] Urea nitrogen 16 mg/dL Normal 7-25 [facility] Comment on above: Performed By: #### 0 0121, 31095 ####[facility] [facility].[address] Consultationon 08-11-2017 Consultation MR#: [id number] [place] Pt. Name: Judith Khan Date of Service: 08/10/2017 Room #: SIC [id number] Birthdate: 1945 Referring Physician: JAYE FOR CONSULTATION: Critical care management status post splenectomy,ventilatory management.HISTORY OF PRESENT ILLNESS: Ms. Judith Khan is a 72-year-old female witha history of hypertension, hyperlipidemia, diabetes, and COPD, whopresented as a transfer from [place], [place] with a traumatic brain injury.The patient reportedly fell, as reported by her [facility], [facility] on 07/22/[facility], in her home. She had [...] days. She presented to the hospital in [place], [place], and aCT abdomen and pelvis was obtained that demonstrated a grade 5 spleniclaceration. The patient was initially hemodynamically stable per reportsfrom the outside facility, however she became markedly hypotensive,unresponsive to multiple fluid boluses, and was transferred to [facility] as a level 1 trauma. When [facility], she had received 3 L of crystalloid and 4 units of blood atthat time and only transiently responded to this fluid resuscitation. Shewas hypotensive in the [facility] and an emergent right femoral Cordis wasplaced [...] chronic obstructivepulmonary disease, not on home O2; yqq-hqxnveu-yhercwwms diabetes mellitus,type 2; anxiety.PAST SURGICAL HISTORY: Hysterectomy, [...] outside facilityreviewed with attending surgeon in [facility] with evidence of rupturedspleen with blood products [...] past. GCS is 15reported in the [facility], currently GCS is 3T, intubated and sedated.She [...] the setting ofcritical care status.Endocrine: History of umn-ordnfwd-yhsncjjel diabetes mellitus, type 2, onhome metformin. We [...] was placed in emergent setting in [facility], this will be removed/replaced within 24 hours [...] Dict: 08/11/2017/04:38 A/Pippa Gutierrez Trans: 08/11/2017 02:22 P/mmoDN_JN:[id number] Normal [facility] FRESH FROZEN PLASMA 2 UNITSo n 08-11-2017 PRODUCT CODE 1 E2701 Normal [facility] Comment on above: Order Comment: INR: 1.22 ,PTT: 27.2 at the time of order ;Indication: Activebleeding/invasive procedure with prolonged PT/PTT or INR > 1.6 Performed By: #### 1 0054, 73988 ####[place] [address] PRODUCT CODE 2 E2701 Normal [facility] Comment on above: Order Comment: INR: 1.22 ,PTT: 27.2 at the time of order ;Indication: Activebleeding/invasive procedure with prolonged PT/PTT or INR > 1.6 Performed By: #### 1 53, ####[facility] PRODUCT STATUS 1 PT Normal [facility] Comment on above: Order Comment: INR: 1.22 ,PTT: 27.2 at the time of order ;Indication: Activebleeding/invasive procedure with prolonged PT/PTT or INR > 1.6 Result Comment: Resu lt changed by IF on 08/11/2017 00:27. The previous value was XX.Result changed by IF on 08/12/2017 02:00. The previous value was IS. Performed By: #### 1 53, ####[address] PRODUCT STATUS 2 PT Normal [facility] Comment on above: Order Comment: INR: 1.22 ,PTT: 27.2 at the time of order ;Indication: Activebleeding/invasive procedure with prolonged PT/PTT or INR > 1.6 Result Comment: Resu lt changed by IF on 08/11/2017 03:17. The previous value was XM.Result changed by IF on 08/13/2017 02:00. The previous value was IS. Performed By: #### 1 53, ####[facility] [facility].[address] UNIT ABO 1 O Normal [facility] Comment on above: Order Comment: INR: 1.22 ,PTT: 27.2 at the time of order ;Indication: Activebleeding/invasive procedure with prolonged PT/PTT or INR > 1.6 Performed By: #### 1 53, ####[facility] [place] [address], [facility] UNIT ABO 2 O Normal [facility] Comment on above: Order Comment: INR: 1.22 ,PTT: 27.2 at the time of order ;Indication: Activebleeding/invasive procedure with prolonged PT/PTT or INR > 1.6 Performed By: #### 1 53, ####[facility] UNIT ID 1 [id number] Normal [facility] Comment on above: Order Comment: INR: 1.22 ,PTT: 27.2 at the time of order ;Indication: Activebleeding/invasive procedure with prolonged PT/PTT or INR > 1.6 Performed By: #### 1 53, ####[facility] UNIT ID 2 [id number] Normal [facility] Comment on above: Order Comment: INR: 1.22 ,PTT: 27.2 at the time of order ;Indication: Activebleeding/invasive procedure with prolonged PT/PTT or INR > 1.6 Performed By: #### 1 53, ####[facility] UNIT RH 1 Positive Normal [facility] Comment on above: Order Comment: INR: 1.22 ,PTT: 27.2 at the time of order ;Indication: Activebleeding/invasive procedure with prolonged PT/PTT or INR > 1.6 Performed By: #### 1 53, ####[facility] [facility].[address] UNIT RH 2 Negative Normal [facility] Comment on above: Order Comment: INR: 1.22 ,PTT: 27.2 at the time of order ;Indication: Activebleeding/invasive procedure with prolonged PT/PTT or INR > 1.6 Performed By: #### 1 53, ####[facility] HEMATOCRITon 08-11-2017 Hematocrit (HCT) 37.7 % Normal 36.0-45.0 [facility] Comment on above: Order Comment: No: D o not add to previous draw Performed By: #### 1 53, ####[facility] Hematocrit (HCT) 34.8 % Low 36.0-45.0 [facility] Comment on above: Order Comment: No: D o not add to previous draw Performed By: #### 1 53, ####[facility] HEMOGLOBINon 08-11-2017 Hemoglobin mass conc (Bld) 12.7 g/dL Normal 12.0-15.0 [facility] Comment on above: Order Comment: No: D o not add to previous drawLAB DRAW NOW - PER CECY MCELROY Performed By: #### 1 53, ####[facility] Hemoglobin mass conc (Bld) 11.8 g/dL Low 12.0-15.0 [facility] Comment on above: Order Comment: No: D o not add to previous draw Performed By: #### 1 53, ####[facility] History and Physicalon 08-11 History and Physical MR#: [id number] Pt. Name: Judith Khan Admitted: 08/11/2017 Date of : 1945 Attending Physician: Alexander Olson M.D. Room #: SIC [id number] Discharge Date: HISTORY AND PHYSICALCHIEF COMPLAINT: Trauma [...] they were fluctuating while in the [facility],stabilized with fluid.GENERAL: Alert and oriented, no acute [...] Dict: 08/11/2017/12:27 A/SUKHJINDER Delgadoate Trans: 08/11/2017 08:41 A/Izabela_JN:[id number] Normal [facility] LACTATE BLOODon 08-11-2017 Lactate 1.1 mmol/L Normal .5-2.2 [facility] Comment on above: Order Comment: No: D o not add to previous draw Performed By: #### 1 53, ####[facility] [place] [address], [facility] Lactate 1.3 mmol/L Normal .5-2.2 [facility] Comment on above: Performed By: #### 1 53, ####[facility] [place] [address], [facility] LIPASE BLOODon 08-11-2017 Lipase 13 Units/L Normal 11-82 [facility] Comment on above: Performed By: #### 0 0121, 66748 ####[facility] [place] [address], [facility] LIVER BATTERYon 08-11-2017 Alanine aminotransferase (ALT) 18 U/L Normal 7-52 [facility] Comment on above: Order Comment: No: D o not add to previous draw Performed By: #### 1 53, ####[facility] [place] [address], [facility] Albumin 2.8 g/dL Low 3.5-5.7 [facility] Comment on above: Order Comment: No: D o not add to previous draw Performed By: #### 1 53, ####[facility] [id number], [facility] ALKALINE PHOSPH 36 IU/L Normal 34-104 [facility] Comment on above: Order Comment: No: D o not add to previous draw Performed By: #### 1 53, ####[facility] [place] [address], [facility] Aspartate aminotransferase (AST) 30 U/L Normal 13-39 [facility] Comment on above: Order Comment: No: D o not add to previous draw Performed By: #### 1 53, ####[facility] [place] [address], [place] Bilirubin (direct) 0.2 mg/dL Normal 0.0-0.2 [facility] Comment on above: Order Comment: No: D o not add to previous draw Performed By: #### 1 53, ####[facility] [place] [address], [place] Bilirubin (total) 0.9 mg/dL Normal 0.3-1.0 [facility] Comment on above: Order Comment: No: D o not add to previous draw Performed By: #### 1 53, ####[facility] Protein 4.0 g/dL Low 6.0-8.3 [facility] Comment on above: Order Comment: No: D o not add to previous draw Performed By: #### 1 53, ####[facility] [facility].[address] MAGNESIUM BLOODon 08-11-2017 Magnesium 1.4 mg/dL Low 1.9-2.7 [facility] Comment on above: Order Comment: No: D o not add to previous draw Performed By: #### 1 53, ####[facility] [facility].[address] Operative Reporton 8 Operative Report MR#: [id number] [facility] Room #: SIC [id number] Discharge Date: Birthdate: 1945 OPERATIVE REPORTDATE OF SURGERY: 08/11/2017SURGEON: Alexander Olson M.D.ASSISTANTS: Aldo Villasenor M.D. PhD; ALEXANDER GutierrezREOPERATIVE DIAGNOSES: Traumatic splenic rupture.POSTOPERATIVE DIAGNOSIS: Traumatic splenic rupture.PROCEDURE: Splenectomy for trauma.INDICATION: This is a 72-year-old white [facility], [facility] been [facility] for a [facility] [...] 08/11/2017/06:29 A/Aldo Villasenor, MDDate Trans: 08/11/2017 03:54 P/mmoDN_JN:[id number] Normal [facility] PHOSPHORUS BLOODon 8 Phosphate 3.1 mg/dL Normal 2.5-5.0 [facility] Comment on above: Order Comment: No: D o not add to previous draw Performed By: #### 1 ####[facility] PLATELET APHERESIS 1 UNITon 08-11-2017 PRODUCT CODE 1 E7006 Normal [facility] Comment on above: Order Comment: Plt c ount at the time of order: 126 ;Indication: Platelet-inhibitingdrug therapy with invasive procedure/bleeding Performed By: #### 1 53, ####[facility] PRODUCT STATUS 1 PT Normal [facility] Comment on above: Order Comment: Plt c ount at the time of order: 126 ;Indication: Platelet-inhibitingdrug therapy with invasive procedure/bleeding Result Comment: Resu lt changed by IF on 08/11/2017 00:20. The previous value was XM.Result changed by IF on 08/12/2017 02:00. The previous value was IS. Performed By: #### 1 53, ####[facility] [facility].[address] UNIT ABO 1 O Normal [facility] Comment on above: Order Comment: Plt c ount at the time of order: 126 ;Indication: Platelet-inhibitingdrug therapy with invasive procedure/bleeding Performed By: #### 1 53, ####[facility] [place] [address].[address] UNIT ID 1 [id number] Normal [facility] Comment on above: Order Comment: Plt c ount at the time of order: 126 ;Indication: Platelet-inhibitingdrug therapy with invasive procedure/bleeding Performed By: #### 1 53, ####[facility] UNIT RH 1 Positive Normal [facility] Comment on above: Order Comment: Plt c ount at the time of order: 126 ;Indication: Platelet-inhibitingdrug therapy with invasive procedure/bleeding Performed By: #### 1 53, ####[place] [address] [facility].[address] POC GLUCOSE LABon 08-11-2017 Glucose mass conc 100 mg/dL Normal 70-100 [facility] Comment on above: Performed By: #### 1 53, ####[address] PORTABLE ABDOMENon 8 PORTABLE ABDOMEN [facility] [address] [place] [id number] Patient Name: JUDITH KHAN : 1945Sex: FAge: Race: WhiteMRN: [id number]. Location: EMERPatient Status: IVisit #: [id number] Date: 08/11/2017 12:35:00 AMCompleted Date: 08/11/2017 01:07 AMRequesting Provider: ALEXANDER OLSON Attending Provider: ALEXANDER OLSON Report Copy To: Signs & Symptoms: Intra-op portable abdomenHistory: R/O foreign bodyComments: R/O foreign bodyExam: PORTABLE ABDOMENAccession #: [id number] POR TABLE ABDOMEN 08/11/2017 1:07 AM EST [...] findings. Electronically signed by:Kristian Nascimento. Transcribed by: [email or web address], User Resident: NICOLETTE ELLIE CABATINGANElectronically Signed by: KRISTIAN NASCIMENTO @ 08/11/2017 12:16 PMI personally read this/these film(s) with this resident Normal [facility] Comment on above: Order Comment: R/O f oreign body PORTABLE CHEST 1 VIEWon 03- PORTABLE CHEST 1 VIEW [facility] [address] [place] [address] Patient Name: JUDITH KHAN : 1945Sex: FAge: Race: WhiteMRN: [id number]. Location: [id number] Status: IVisit #: [id number] Date: 08/11/2017 1:45:00 AMCompleted Date: 08/11/2017 02:13 AMRequesting Provider: CARMENZA WINTER Attending Provider: ALEXANDER OLSON Report Copy To: Signs & Symptoms: Post OPHistory: Patient history not availableComments: Check E.T. Position, also to chest OGT placementExam: PORTABLE CHEST 1 VIEWAccession #: [id number] POR TABLE CHEST 1 VIEW 08/11/2017 2:13 [...] findings. Electronically signed by:Kristian Nascimento. Transcribed by: [email or web address], User Resident: NICOLETTE TOTHANElectronically Signed by: KRISTIAN NASCIMENTO @ 08/11/2017 12:17 PMI personally read this/these film(s) with this resident Normal [facility] Comment on above: Order Comment: Check E.T. Position, also to chest OGT placement PROTHROMBIN TIMEon 8 INR Coag RelTime (PPP) 1.44 {INR} High 0.91-1.16 [facility] Comment on above: Order Comment: No: D [...] OF ACTION, CLINICALEFFECTIVENESS, AND OPTIMAL THERAPEUTIC RANGE. [id number];108:231S-246S. Performed By: #### 1 53, ####[facility] Prothrombin time (PT) Coag time (PPP) 17.7 s High 12.3-14.8 [facility] Comment on above: Order Comment: No: D o not add to previous draw Result Comment: ALL RESULTS MUST BE INTERPRETED WITH RESPECT TO BLOOD DRAWING ARTIFACTOR DILUTION ERROR OF ANTICOAGULANT AT THE TIME OF SAMPLING. Performed By: #### 1 53, ####[facility] INR Coag RelTime (PPP) 1.22 {INR} High 0.91-1.16 [facility] Comment on above: Result Comment: ACCC P RECOMMENDED INR FOR WARFARIN THERAPY CONDITION INRPROPHYLAXIS OF VENOUS THROMBOSIS 2-3(HIGH-RISK SURGERY)TREATMENT OF VENOUS THROMBOSIS 2-3TREATMENT OF PULMONARY EMBOLISM 2-3PREVENTION OF SYSTEMIC EMBOLISM: 2-3 ACUTE MYOCARDIAL INFARCTION TISSUE HEART VALVES VALVULAR HEART DISEASE ATRIAL FIBRILLATION RECURRENT SYSTEMIC EMBOLISMMECHANICAL HEART VALVE 2.5-3.5 FROM: ORAL ANTICOAGULANTS. MECHANISM OF ACTION, CLINICALEFFECTIVENESS, AND OPTIMAL THERAPEUTIC RANGE. [id number];108:231S-246S. Performed By: #### 5 6101, 12171 ####[facility] [place] [address], [facility] Prothrombin time (PT) Coag time (PPP) 15.5 s High 12.3-14.8 [facility] Comment on above: Result Comment: ALL RESULTS MUST BE INTERPRETED WITH RESPECT TO BLOOD DRAWING ARTIFACTOR DILUTION ERROR OF ANTICOAGULANT AT THE TIME OF SAMPLING. Performed By: #### 5 6101, 19813 ####[facility] [place] [address], [place] RBC'S 4 UNITSon 08-11-2017 CROSSMATCH INTERP 1 COMP Normal [facility] Comment on above: Performed By: #### 8 6004 ####[facility] [place] [address], [place] CROSSMATCH INTERP 2 COMP Normal [facility] Comment on above: Performed By: #### 8 6004 ####[facility] [place] [address], [place] CROSSMATCH INTERP 3 COMP Normal [facility] Comment on above: Performed By: #### 8 [id number] ####[facility] [place] [address], [place] [employer]OS[employer]ATCH INTERP 4 COMP Normal [facility] Comment on above: Performed By: #### 8 6004 ####[facility] [place] [address], [place] PRODUCT CODE 1 [id number] Normal [facility] Comment on above: Performed By: #### 8 6004 ####[facility] [place] [address], [place] PRODUCT CODE 2 E0336 Normal [facility] Comment on above: Performed By: #### 8 6004 ####[facility] [place] [address], [place] PRODUCT CODE 3 E0336 Normal [facility] Comment on above: Performed By: #### 8 6004 ####[facility] [place] [address], [place] PRODUCT CODE 4 E0336 Normal [facility] Comment on above: Performed By: #### 8 6004 ####[facility] [place] [address], [facility] PRODUCT STATUS 1 RE Normal [facility] Comment on above: Result Comment: Resu lt changed by IF on 08/11/2017 00:26. The previous value was XM.Result changed by IF on 08/11/2017 01:42. The previous value was IS.Result changed by IF on 08/14/2017 07:03. The previous value was XM. Performed By: #### 8 [id number] ####[facility] [place] [address], [facility] PRODUCT STATUS 2 PT Normal [facility] Comment on above: Result Comment: Resu lt changed by IF on 08/11/2017 00:26. The previous value was XM.Result changed by IF on 08/12/2017 02:00. The previous value was IS. Performed By: #### 8 [id number] ####[facility] [place] [address], [facility] PRODUCT STATUS 3 RE Normal [facility] Comment on above: Result Comment: Resu lt changed by IF on 08/12/2017 15:16. The previous value was XX. Performed By: #### 8 [id number] ####[facility] [place] [address], [facility] PRODUCT STATUS 4 RE Normal [facility] Comment on above: Result Comment: Resu lt changed by IF on 08/11/2017 00:26. The previous value was XM.Result changed by IF on 08/11/2017 01:42. The previous value was IS.Result changed by IF on 08/14/2017 07:03. The previous value was XM. Performed By: #### 8 [id number] ####[facility] [place] [address], [facility] UNIT ABO 1 O Normal [facility] Comment on above: Performed By: #### 8 6004 ####[facility] [facility] [place] [address], [facility] UNIT ABO 2 O Normal [facility] Comment on above: Performed By: #### 8 6004 ####[facility] [place] [address], [facility] UNIT ABO 3 O Normal [facility] Comment on above: Performed By: #### 8 6004 ####[facility] [place] [address], [facility] UNIT ABO 4 O Normal [facility] Comment on above: Performed By: #### 8 6004 ####[facility] [place] [address], [facility] UNIT ID 1 [id number] Normal [facility] Comment on above: Performed By: #### 8 6004 ####[facility] [place] [address], [facility] UNIT ID 2 [id number] Normal [facility] Comment on above: Performed By: #### 8 6004 ####[facility] [place] [address], [facility] UNIT ID 3 [id number] Normal [facility] Comment on above: Performed By: #### 8 6004 ####[facility] [place] [address], [facility] UNIT ID 4 [id number] Normal [facility] Comment on above: Performed By: #### 8 6004 ####[facility] [place] [address], [facility] UNIT RH 1 Negative Normal [facility] Comment on above: Performed By: #### 8 6004 ####[facility] [place] [address], [facility] UNIT RH 2 Negative Normal [facility] Comment on above: Performed By: #### 8 6004 ####[facility] [place] [address], [facility] UNIT RH 3 Negative Normal [facility] Comment on above: Performed By: #### 8 6004 ####[facility] [place] [address], [facility] UNIT RH 4 Negative Normal [facility] Comment on above: Performed By: #### 8 6004 ####[facility] [place] [address], [facility] SERUM TESTon 08-11 TEST Negative Normal [facility] Comment on above: Performed By: #### 4 [id number] ####[facility] [place] [address], [facility] TYPE AND CROSSMATCHon 2017 ABO INTERPRETATION O Normal [facility] Comment on above: Performed By: #### 6 2594 ####[facility] [place] [address], [place] ANTIBODY SCREEN Negative Normal [facility] Comment on above: Performed By: #### 6 2594 ####[facility] [place] [address], [facility] RH INTERPRETATION Negative Normal [facility] Comment on above: Performed By: #### 6 2594 ####[facility] [place] [address], [facility] Vital Signs Date Time Vital Sign Value Performing Clinician Facility 08-12-2024 12:12-0500 Heart rate 96 /min Supa Owen [facility] 08-12-2024 12:12-0500 SaO2% (BldA) [Mass fraction] 94 % Supa Owen [facility] 08-12-2024 12:09-0500 Respiratory rate 20 /min Supa Pocos [facility] 08-12-2024 12:09-0500 Blood Pressure Location Supa Pocos [facility] 08-12-2024 12:09-0500 Diastolic blood pressure 57 mm[Hg] Supa Pocos [facility] 08-12-2024 12:09-0500 Mean blood pressure 78 mm[Hg] Supa Pocos [facility] 08-12-2024 12:09-0500 Systolic blood pressure 120 mm[Hg] Supa Pocos [facility] 08-12-2024 11:17-0500 Heart rate 86 /min Supa Pocos [facility] 08-12-2024 11:17-0500 SaO2% (BldA) [Mass fraction] 97 % Supa Pocos [facility] 08-12-2024 11:15-0500 Diastolic blood pressure 54 mm[Hg] Supa Pocos [facility] 08-12-2024 11:15-0500 Mean blood pressure 74 mm[Hg] Supa Pocos [facility] 08-12-2024 11:15-0500 Systolic blood pressure 113 mm[Hg] Supa Pocos [facility] 08-12-2024 10:48-0500 Heart rate 77 /min Supa Pocos [facility] 08-12-2024 10:48-0500 SaO2% (BldA) [Mass fraction] 92 % Supa Pocos [facility] 08-12-2024 10:48-0500 Blood Pressure Location Supa Pocos [facility] 08-12-2024 10:48-0500 Diastolic blood pressure 52 mm[Hg] Supa Pocos [facility] 08-12-2024 10:48-0500 Mean blood pressure 66 mm[Hg] Supa Pocos [facility] 08-12-2024 10:48-0500 Systolic blood pressure 94 mm[Hg] Supa Pocos [facility] 08-12-2024 10:41-0500 Respiratory rate 18 /min Supa Pocos [facility] 08-12-2024 10:38-0500 Mean blood pressure 65 mm[Hg] Supa Pocos [facility] 08-12-2024 10:38-0500 Respiratory rate 19 /min Supa Pocos [facility] 08-12-2024 10:30-0500 Mean blood pressure 73 mm[Hg] Supa Pocos [facility] 08-12-2024 10:30-0500 Respiratory rate 12 /min Supa Pocos [facility] 08-12-2024 10:20-0500 Mean blood pressure 77 mm[Hg] Supa Pocos [facility] 08-12-2024 10:20-0500 Respiratory rate 12 /min Supa Pocos [facility] 08-12-2024 10:08-0500 Body temperature 97.52 [degF] Supa Pocos [facility] 08-12-2024 10:00-0500 Respiratory rate 11 /min Supa Pocos [facility] 08-12-2024 07:50-0500 Blood Pressure Location Supa Pocos [facility] 08-12-2024 07:50-0500 Heart rate 82 /min Supa Pocos [facility] 08-12-2024 07:48-0500 Body temperature 97.88 [degF] Supa Pocos [facility] 08-06-2024 10:07-0500 Body height 165.1 cm Supa Pocos DO Work Phone: [facility] 08-06-2024 10:07-0500 Body mass index (BMI) [Ratio] 17.97 kg/m2 Supa Pocos DO Work Phone: [facility] 08-06-2024 10:07-0500 Body weight 48.99 kg Supa Pocos DO Work Phone: [facility] 08-03-2024 20:00-0500 Diastolic blood pressure 79 mm[Hg] Christopher Henrry [facility] 08-03-2024 20:00-0500 Heart rate 86 /min Christopher Henrry [facility] 08-03-2024 20:00-0500 Mean blood pressure 101 mm[Hg] Christopher Henrry [facility] 08-03-2024 20:00-0500 SaO2% (BldA) [Mass fraction] 97 % Christopher Henrry [facility] 08-03-2024 20:00-0500 Systolic blood pressure 146 mm[Hg] Christopher Henrry [facility] 08-03-2024 18:59-0500 Body temperature 97.34 [degF] Christopher Henrry [facility] 08-03-2024 18:59-0500 Diastolic blood pressure 82 mm[Hg] Christopher Henrry [facility] 08-03-2024 18:59-0500 Heart rate 92 /min Christopher Henrry [facility] 08-03-2024 18:59-0500 Respiratory rate 16 /min Christopher Henrry [facility] 08-03-2024 18:59-0500 SaO2% (BldA) [Mass fraction] 94 % Christopher Sales [facility] 08-03-2024 18:59-0500 Systolic blood pressure 171 mm[Hg] Christopher Sales [facility] 07-30-2024 07:57-0500 Body height 165.1 cm Supa Pocos DO Work Phone: [facility] 07-30-2024 07:57-0500 Body mass index (BMI) [Ratio] 17.97 kg/m2 Supa Pocos DO Work Phone: [facility] 07-30-2024 07:57-0500 Body weight 48.99 kg Supa Pocos DO Work Phone: [facility] 07-26-2024 18:33-0500 Diastolic blood pressure 91 mm[Hg] Jazmin Morfin [facility] 07-26-2024 18:33-0500 Heart rate 76 /min Jazmin Morfin [facility] 07-26-2024 18:33-0500 Mean blood pressure 104 mm[Hg] Jazmin Morfin [facility] 07-26-2024 18:33-0500 Respiratory rate 14 /min Jazmin Morfin [facility] 07-26-2024 18:33-0500 SaO2% (BldA) [Mass fraction] 94 % Jazmin Morfin [facility] 07-26-2024 18:33-0500 Systolic blood pressure 130 mm[Hg] Jazmin Morfin [facility] 07-26-2024 18:14-0500 Hourly Rounding Jazmin Morfin [facility] 07-26-2024 18:00-0500 Mean blood pressure 107 mm[Hg] Jazmin Rochae [facility] 07-26-2024 18:00-0500 Respiratory rate 13 /min Jazmin Rochae [facility] 07-26-2024 18:00-0500 SaO2% (BldA) [Mass fraction] 95 % Jazmin Navjot [facility] 07-26-2024 18:00-0500 Systolic blood pressure 139 mm[Hg] Jazmin Rochae [facility] 07-26-2024 17:10-0500 Diastolic blood pressure 93 mm[Hg] Jazmin Rohcae [facility] 07-26-2024 17:10-0500 Heart rate 75 /min Jazmin Rochae [facility] 07-26-2024 17:10-0500 Hourly Rounding Jazmin Rochae [facility] 07-26-2024 17:10-0500 Mean blood pressure 115 mm[Hg] Jazmin Rochae [facility] 07-26-2024 17:10-0500 Respiratory rate 18 /min Jazmin Rochae [facility] 07-26-2024 17:10-0500 SaO2% (BldA) [Mass fraction] 93 % Jazmin Navjot [facility] 07-26-2024 17:10-0500 Systolic blood pressure 160 mm[Hg] Jazmin Navjot [facility] 07-26-2024 16:02-0500 Body temperature 97.7 [degF] Jazmin Navjot [facility] 07-26-2024 16:02-0500 Heart rate 89 /min Jazmin Rochae [facility] 07-26-2024 16:02-0500 Respiratory rate 18 /min Jazmin Morfin [facility] 07-24-2024 21:00-0500 Diastolic blood pressure 88 mm[Hg] [facility] 07-24-2024 21:00-0500 Heart rate 81 /min [facility] 07-24-2024 21:00-0500 Mean blood pressure 113 mm[Hg] [facility] 07-24-2024 21:00-0500 Respiratory rate 19 /min [facility] 07-24-2024 21:00-0500 SaO2% (BldA) [Mass fraction] 96 % [facility] 07-24-2024 21:00-0500 Systolic blood pressure 164 mm[Hg] [facility] 07-24-2024 20:30-0500 Diastolic blood pressure 77 mm[Hg] [facility] 07-24-2024 20:30-0500 Heart rate 85 /min [facility] 07-24-2024 20:30-0500 Mean blood pressure 105 mm[Hg] [facility] 07-24-2024 20:30-0500 Respiratory rate 15 /min [facility] 07-24-2024 20:30-0500 SaO2% (BldA) [Mass fraction] 93 % [facility] 07-24-2024 20:30-0500 Systolic blood pressure 160 mm[Hg] [facility] 07-24-2024 19:30-0500 Diastolic blood pressure 92 mm[Hg] [facility] 07-24-2024 19:30-0500 Heart rate 78 /min [facility] 07-24-2024 19:30-0500 Mean blood pressure 117 mm[Hg] [facility] 07-24-2024 19:30-0500 Respiratory rate 18 /min [facility] 07-24-2024 19:30-0500 SaO2% (BldA) [Mass fraction] 95 % [facility] 07-24-2024 19:30-0500 Systolic blood pressure 167 mm[Hg] [facility] 07-24-2024 19:02-0500 Body temperature 97.52 [degF] [facility] 07-24-2024 19:02-0500 Heart rate 76 /min [facility] 07-24-2024 19:02-0500 Respiratory rate 18 /min [facility] 07-24-2024 18:46-0500 Body temperature 97.52 [degF] [facility] 07-24-2024 18:46-0500 Heart rate 78 /min [facility] 07-24-2024 18:46-0500 Respiratory rate 18 /min [facility] 07-16-2024 14:51-0500 Diastolic blood pressure 71 mm[Hg] Mariola Montes PA-C Work Phone: [facility] 07-16-2024 14:51-0500 Heart rate 97 /min Mariola Simon PA-C Work Phone: [facility] 07-16-2024 14:51-0500 SaO2% (BldA) [Mass fraction] 97 % Mariola Montes PA-C Work Phone: [facility] 07-16-2024 14:51-0500 Systolic blood pressure 149 mm[Hg] Mariola Simon PA-C Work Phone: [facility] 05-21-2024 12:59-0500 Body mass index (BMI) [Ratio] 17.97 kg/m2 Giovanni Gill NP Work Phone: [facility] 05-21-2024 12:59-0500 Body weight 48.99 kg Giovanni Gill [employer]ENT [employer] SUPERVISOR Work Phone: [facility] 05-21-2024 12:59-0500 Diastolic blood pressure 76 mm[Hg] Giovanni Gill COMPONENT ASSEMBLER SUPERVISOR Work Phone: [facility] 05-21-2024 12:59-0500 Heart rate 68 /min Giovanni Gill COMPONENT ASSEMBLER SUPERVISOR Work Phone: [facility] 05-21-2024 12:59-0500 Systolic blood pressure 125 mm[Hg] Giovanni Gill COMPONENT ASSEMBLER SUPERVISOR Work Phone: [facility] 04-21-2024 08:39-0500 Body mass index (BMI) [Ratio] 18.64 kg/m2 Giovanni Gill COMPONENT ASSEMBLER SUPERVISOR Work Phone: [facility] 04-21-2024 08:39-0500 Body weight 50.8 kg Giovanni Gill COMPONENT ASSEMBLER SUPERVISOR Work Phone: [facility] 04-21-2024 08:39-0500 Diastolic blood pressure 75 mm[Hg] Giovanni Gill COMPONENT ASSEMBLER SUPERVISOR Work Phone: [facility] 04-21-2024 08:39-0500 Heart rate 76 /min Giovanni Gill COMPONENT ASSEMBLER SUPERVISOR Work Phone: [facility] 04-21-2024 08:39-0500 Systolic blood pressure 128 mm[Hg] Giovanni Gill COMPONENT ASSEMBLER SUPERVISOR Work Phone: [facility] 02-22-2024 14:35-0400 SaO2% (BldA) [Mass fraction] 95 % Mariola Montes PA-C Work Phone: [facility] 02-22-2024 14:33-0400 Diastolic blood pressure 73 mm[Hg] Mariola Montes PA-C Work Phone: [facility] 02-22-2024 14:33-0400 Heart rate 92 /min Mariola Montes PA-C Work Phone: [facility] 02-22-2024 14:33-0400 Systolic blood pressure 133 mm[Hg] Mariola Montes PA-C Work Phone: [facility] 01-14-2024 13:40-0400 Body height 167.6 cm Mariola Mittalwig PA-C Work Phone: [facility] 01-14-2024 13:40-0400 Body mass index (BMI) [Ratio] 19.21 kg/m2 Mariola Simon PA-C Work Phone: [facility] 01-14-2024 13:40-0400 Body weight 53.98 kg Mariola Simon PA-C Work Phone: [facility] 01-14-2024 13:40-0400 Diastolic blood pressure 63 mm[Hg] Mariola Simon PA-C Work Phone: [facility] 01-14-2024 13:40-0400 Heart rate 92 /min Mariola Simon PA-C Work Phone: [facility] 01-14-2024 13:40-0400 SaO2% (BldA) [Mass fraction] 92 % Mariola Simon PA-C Work Phone: [facility] 01-14-2024 13:40-0400 Systolic blood pressure 144 mm[Hg] Mariola Simon PA-C Work Phone: [facility] 10-07-2023 09:46-0400 Diastolic blood pressure 70 mm[Hg] Mri (I-Stat/1.5t/3t) Work Phone: [facility] 10-07-2023 09:46-0400 Heart rate 103 /min Mri (I-Stat/1.5t/3t) Work Phone: [facility] 10-07-2023 09:46-0400 Respiratory rate 16 /min Mri (I-Stat/1.5t/3t) Work Phone: [facility] 10-07-2023 09:46-0400 SaO2% (BldA) [Mass fraction] 93 % Mri (I-Stat/1.5t/3t) Work Phone: [facility] Comment on above: RA 10-07-2023 09:46-0400 Systolic blood pressure 144 mm[Hg] Mri (I-Stat/1.5t/3t) Work Phone: [facility] 09-13-2023 09:23-0400 Body height 167.6 cm David Valente MD Work Phone: [facility] 09-13-2023 09:23-0400 Body weight 55.79 kg David Valente MD Work Phone: [facility] 09-13-2023 09:23-0400 Diastolic blood pressure 71 mm[Hg] David Valente MD Work Phone: [facility] 09-13-2023 09:23-0400 Heart rate 85 /min David Valente MD Work Phone: [facility] 09-13-2023 09:23-0400 SaO2% (BldA) [Mass fraction] 95 % David Valente MD Work Phone: [facility] 09-13-2023 09:23-0400 Systolic blood pressure 132 mm[Hg] David Valente MD Work Phone: [facility] 07-16-2023 15:42-0500 Heart rate 117 /min Demarco Beaver [facility] 07-16-2023 15:42-0500 Respiratory rate 19 /min Demarco Beaver [facility] 07-16-2023 15:42-0500 SaO2% (BldA) [Mass fraction] 94 % Demarco Beaver [facility] 07-16-2023 15:00-0500 Diastolic blood pressure 99 mm[Hg] Demarco Beaver [facility] 07-16-2023 15:00-0500 Mean blood pressure 121 mm[Hg] Demarco Beaver [facility] 07-16-2023 15:00-0500 Respiratory rate 33 /min Demarco Beaver [facility] 07-16-2023 15:00-0500 Systolic blood pressure 166 mm[Hg] Demarco Sd [facility] 07-16-2023 14:30-0500 Diastolic blood pressure 77 mm[Hg] Demarco Sd [facility] 07-16-2023 14:30-0500 Heart rate 103 /min Demarco Sd [facility] 07-16-2023 14:30-0500 Mean blood pressure 100 mm[Hg] Demarco Sd [facility] 07-16-2023 14:30-0500 Respiratory rate 14 /min Demarco Sd [facility] 07-16-2023 14:30-0500 SaO2% (BldA) [Mass fraction] 93 % Demarco Sd [facility] 07-16-2023 14:30-0500 Systolic blood pressure 147 mm[Hg] Demarco Sd [facility] 07-16-2023 13:30-0500 Body temperature 97.88 [degF] Demarco Sd [facility] 07-16-2023 13:30-0500 Diastolic blood pressure 84 mm[Hg] Demarco Sd [facility] 07-16-2023 13:30-0500 Mean blood pressure 105 mm[Hg] Demarco Sd [facility] 07-16-2023 13:30-0500 Systolic blood pressure 146 mm[Hg] Demarco Sd [facility] 07-16-2023 11:37-0500 Body temperature 97.16 [degF] Demarco Sd [facility] 07-16-2023 11:37-0500 Heart rate 119 /min Demarco Sd [facility] 07-16-2023 11:37-0500 Respiratory rate 18 /min Demarco Beaver [facility] 06-23-2023 14:00-0500 Hourly Rounding [facility] 06-23-2023 14:00-0500 Promise to Return [facility] 06-23-2023 13:00-0500 Hourly Rounding [facility] 06-23-2023 13:00-0500 Promise to Return [facility] 06-23-2023 12:00-0500 Hourly Rounding [facility] 06-23-2023 12:00-0500 Promise to Return [facility] 06-23-2023 11:22-0500 Heart rate 107 /min [facility] 06-23-2023 11:22-0500 SaO2% (BldA) [Mass fraction] 94 % [facility] 06-23-2023 11:21-0500 Diastolic blood pressure 82 mm[Hg] [facility] 06-23-2023 11:21-0500 Mean blood pressure 108 mm[Hg] [facility] 06-23-2023 11:21-0500 Systolic blood pressure 162 mm[Hg] [facility] 06-23-2023 11:20-0500 Body temperature 97.7 [degF] [facility] 06-23-2023 08:20-0500 SaO2% (BldA) [Mass fraction] 98 % [facility] 06-23-2023 07:19-0500 Heart rate 84 /min [facility] 06-23-2023 07:19-0500 SaO2% (BldA) [Mass fraction] 100 % [facility] 07:18-0500 Body temperature 97.52 [degF] [facility] 06-23-2023 07:18-0500 Diastolic blood pressure 81 mm[Hg] [facility] 06-23-2023 07:18-0500 Mean blood pressure 99 mm[Hg] [facility] 06-23-2023 07:18-0500 Systolic blood pressure 137 mm[Hg] [facility] 06-23-2023 06:17-0500 Blood Pressure Location [facility] 06-23-2023 06:17-0500 Body temperature 97.52 [degF] [facility] 06-23-2023 06:17-0500 Diastolic blood pressure 74 mm[Hg] [facility] 06-23-2023 06:17-0500 Heart rate 99 /min [facility] 06-23-2023 06:17-0500 Respiratory rate 17 /min [facility] 06-23-2023 06:17-0500 Systolic blood pressure 159 mm[Hg] [facility] 06-23-2023 05:01-0500 Heart rate 102 /min [facility] 06-23-2023 05:01-0500 Mean blood pressure 98 mm[Hg] [facility] 06-23-2023 05:01-0500 Respiratory rate 19 /min [facility] 06-23-2023 04:30-0500 Mean blood pressure 95 mm[Hg] [facility] 06-23-2023 04:30-0500 Respiratory rate 16 /min [facility] 06-23-2023 03:00-0500 Mean blood pressure 121 mm[Hg] [facility] 06-23-2023 03:00-0500 Respiratory rate 20 /min [facility] 06-23-2023 02:43-0500 Respiratory rate 18 /min [facility] 06-23-2023 02:30-0500 Respiratory rate 18 /min [facility] 06-23-2023 01:40-0500 gluc 96 mg/dL [facility] 06-23-2023 01:40-0500 gluc [facility] 06-23-2023 01:38-0500 gluc 96 mg/dL [facility] 06-23-2023 01:38-0500 gluc [facility] 06-23-2023 01:37-0500 Heart rate 117 /min [facility] 05-15-2023 13:50-0500 Body height 167.64 cm MD Rodrick Sams Work Phone: [facility] 05-15-2023 13:50-0500 Body weight 57.15 kg MD Rodrick Sams Work Phone: [facility] Encounters Encounter Date Encounter Type Care Provider Facility Start: 08-12-2024 End: 08-12-2024 Admission to same day surgery center Supa Owen [facility] Start: 08-06-2024 End: 08-06-2024 ambulatory Meghan Ramachandran [facility] Work Phone: Start: 08-06-2024 End: 08-06-2024 Departed Referred Rodrick Sams MD Work Phone: [facility] Start: 08-06-2024 End: 08-06-2024 Patient encounter procedure Supa Davis Pocos DO Work Phone: [facility] Comment on above: Right wrist pain (Pr imary Dx); Closed Colles' fracture of right radius with routine healing; Other closed fracture of distal end of right ulna with routine healing, subsequent encounter Start: 08-06-2024 End: 08-06-2024 ambulatory SUPA Davis POCOS Not Available Start: 08-06-2024 End: 08-06-2024 ambulatory SUPA Davis POCOS Not Available Start: 08-03-2024 End: 08-03-2024 Emergency department patient visit Christopher Sales [facility] Start: 07-30-2024 End: 07-30-2024 Bamboo flowsheet Supa Davis Pocos DO Work Phone: [facility] Start: 07-30-2024 End: 07-30-2024 Bamboo flowsheet Supa Davis Pocos DO Work Phone: [facility] Start: 07-30-2024 End: 07-30-2024 Telephone encounter Mariola Montes PA-C Work Phone: [facility] Comment on above: Surgical Clearance Start: 07-30-2024 End: 07-30-2024 Patient encounter procedure Supa Davis Pocmalika DO Work Phone: [facility] Comment on above: Right wrist pain (Pr imary Dx); Closed Colles' fracture of right radius, initial encounter; Other closed fracture of distal end of right ulna, initial encounter; Parkinson's disease with dyskinesia, unspecified whether manifestations fluctuate (CMS/[facility]); Underweight Start: 07-30-2024 End: 07-30-2024 ambulatory SUPA Davis POCOS Not Available Start: 07-26-2024 End: 07-26-2024 Emergency department patient visit [facility] Facility:[facility] Start: 07-24-2024 End: 07-24-2024 Emergency department patient visit Augie Spearsharper [facility] Start: 07-24-2024 End: 07-24-2024 ambulatory Rodrick Sams [facility] Work Phone: Start: 07-24-2024 End: 07-24-2024 Departed Referred Rodrick Sams MD Work Phone: [facility] Start: 07-16-2024 End: 07-16-2024 ambulatory MARIOLA SIMON Facility:[facility] Start: 07-16-2024 End: 07-16-2024 Office outpatient visit 40 minutes Mariola Montes PA-C Work Phone: [facility] Comment on above: Parkinson's disease with dyskinesia and fluctuating manifestations (HCC) (Primary Dx); Anxiety disorder due to known physiological condition; Hypophonia with hoarseness Start: 05-21-2024 End: 05-21-2024 Bamboo flowsheet Giovanni Gill COMPONENT ASSEMBLER SUPERVISOR Work Phone: [facility] Start: 05-21-2024 End: 05-21-2024 Bamboo flowsheet Giovanni Gill COMPONENT ASSEMBLER SUPERVISOR Work Phone: [facility] Start: 05-21-2024 End: 05-21-2024 Office outpatient visit 25 minutes Giovanni Gill COMPONENT ASSEMBLER SUPERVISOR Work Phone: [facility] Comment on above: Parkinson's disease, unspecified whether dyskinesia present, unspecified whether manifestations fluctuate (CMS/HCC) (Primary Dx); RLS (restless legs syndrome); Cerebral infarction, chronic; Other chronic pain; Carpal tunnel syndrome of right wrist Start: 05-21-2024 End: 05-21-2024 ambulatory GIOVANNI GILL Not Available Start: 05-03-2024 End: 05-03-2024 ambulatory GIOVANNI GILL Not Available Start: 04-21-2024 End: 04-21-2024 Bamboo flowsheet Giovanni Gill COMPONENT ASSEMBLER SUPERVISOR Work Phone: [facility] Start: 04-21-2024 End: 04-21-2024 Bamboo flowsheet Giovanni Gill COMPONENT ASSEMBLER SUPERVISOR Work Phone: [facility] Start: 04-21-2024 End: 04-21-2024 Office outpatient visit 25 minutes Giovanni Gill COMPONENT ASSEMBLER SUPERVISOR Work Phone: [facility] Comment on above: Parkinson's disease, unspecified whether dyskinesia present, unspecified whether manifestations fluctuate (CMS/HCC) (Primary Dx); Dyskinesia; RLS (restless legs syndrome); Cerebral infarction, chronic; Bilateral carotid artery stenosis Start: 04-21-2024 End: 04-21-2024 ambulatory GIOVANNI GILL Not Available Start: 02-23-2024 End: 02-25-2024 Refill MariolaAbiquo PA-C Work Phone: [facility] Comment on above: Refill Request Start: 02-22-2024 End: 02-22-2024 Office outpatient visit 40 minutes Colored Solar PA-C Work Phone: [facility] Comment on above: Parkinson's disease with dyskinesia and fluctuating manifestations (HCC) (Primary Dx) Start: 02-22-2024 End: 02-22-2024 ambulatory MARIOLA TwinStrata Facility:[facility] Start: 01-14-2024 End: 01-14-2024 ambulatory MARIOLA SIMON Facility:[facility] Start: 01-14-2024 End: 01-14-2024 Office outpatient visit 40 minutes Colored Solar PA-C Work Phone: [facility] Comment on above: Parkinson's disease with dyskinesia and fluctuating manifestations (HCC) (Primary Dx) Start: 12-20-2023 End: 12-20-2023 ambulatory STEPHENIE PRECIADO [facility] Start: 11-27-2023 End: 11-27-2023 ambulatory EFRENSAMMYARI AGUILA [facility] Start: 11-19-2023 End: 11-19-2023 ambulatory Rafa Abebe MD Facility:[facility] Start: 11-08-2023 Telephone encounter David Valente MD Work Phone: [facility] Comment on above: Medication Update/Am antadine Start: 10-29-2023 End: 10-29-2023 ambulatory GIOVANNI GILL Not Available Start: 10-22-2023 End: 10-22-2023 ambulatory Rafa Abebe MD Facility:[facility] [place] Start: 10-17-2023 Refill Neelima Ortega APRN, .CNP Work Phone: [facility] Comment on above: Med Change Request Start: 10-17-2023 Telephone encounter David Valente MD Work Phone: [facility] Comment on above: Results (MRI) Start: 10-15-2023 End: 10-15-2023 ambulatory Neelima Ortega APRN.GLUER MACHINE SETUP OPERATOR Work Phone: Neurology Comment on above: Parkinson's disease with dyskinesia and fluctuating manifestations (HCC) (Primary Dx) Start: 10-15-2023 End: 10-15-2023 Telemedicine consultation with patient Neelima Ortega APRN.GLUER MACHINE SETUP OPERATOR Work Phone: Neurology Start: 10-09-2023 Telephone encounter David Valente MD Work Phone: [facility] Start: 10-07-2023 End: 10-07-2023 ambulatory [facility] Facility:[facility] Start: 10-07-2023 End: 10-07-2023 [facility] Facility:[facility] Start: 10-07-2023 End: 10-07-2023 Subsequent hospital visit by physician Mri 4 Radio Main Q (I-Stat/1.5t/3t) Work Phone: MRI Q Comment on above: Spinal stenosis of c ervical region [M48.02] Abnormal posture [R2 9.3] 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 [M48.062] Start: 09-26-2023 End: 09-26-2023 ambulatory [facility] Start: 09-18-2023 Evaluation and manag ement of inpatient [facility] MOR[facility] Start: 09-17-2023 End: 09-18-2023 Evaluation and management of inpatient [facility] Start: 09-13-2023 End: 09-13-2023 ambulatory [facility] Facility:[facility] Start: 09-13-2023 End: 09-13-2023 ambulatory [facility] Facility:[facility] Start: 09-13-2023 End: 09-13-2023 Patient encounter procedure David Valente MD Work Phone: [facility] Comment on above: Hyperreflexia (Prima ry Dx); Spinal stenosis of cervical region; Abnormal posture; Spinal stenosis of lumbar region with neurogenic claudication; Neuropathy; Hypertension, unspecified type; Degenerative myopia with other maculopathy, bilateral eye; Parkinson's disease, unspecified whether dyskinesia present, unspecified whether manifestations fluctuate (HCC); Memory changes Start: 09-03-2023 End: 09-03-2023 ambulatory Rafa Abebe MD Facility: [facility] Start: 08-22-2023 End: 08-22-[facility] Start: 08-20-2023 End: 08-20-2023 ambulatory Rafa Abebe MD Facility: [facility] Start: 08-14-2023 End: 08-14-2023 ambulatory Giovanni Gill Facility:[facility] Start: 08-13-2023 End: 08-13-2023 ambulatory [facility] Start: 08-13-2023 End: 08-13-2023 ambulatory [facility] Start: 08-07-2023 End: 08-07-2023 ambulatory [facility] Start: 07-30-2023 End: 07-30-2023 ambulatory Rafa Abebe MD Facility: [facility] Start: 07-16-2023 End: 07-16-2023 Emergency department patient visit Demarco Beaver [facility] Start: 07-06-2023 End: 07-06-2023 ambulatory [facility] Start: 06-23-2023 End: 06-23-2023 Observation Mela Espinal [facility] Start: 05-15-2023 End: 05-15-2023 ambulatory MD Rodrick Sams Work Phone: [facility] Work Phone: Start: 05-15-2023 End: 05-15-2023 Patient encounter procedure MD Rodrick Sams Work Phone: [facility] [place] Work Phone: Start: 01-12-2023 End: 01-12-2023 ambulatory MILA ROWLEY [facility] Start: 10-09-2022 End: 10-10-[address] RODRICK [...] myocardial ischemia David Valente MD Work Phone: [facility] Work Phone: Procedures Date Procedure Procedure Detail Performing Clinician Start: 08-12-2024 Open reduction of fr acture with internal fixation Supa Owen Start: 08-06-2024 Radex wrist complete minimum 3 views Herbie Pocos DO Work Phone: Start: 07-30-2024 Radex wrist complete minimum 3 views Herbie Pocos DO Work Phone: Start: 07-24-2024 Urine culture Rodrick malone MD Work Phone: Start: 10-07-2023 Mri spinal canal cer vical w/o contrast matrl David Valente MD Work Phone: Start: 05-15-2023 MRI of head MD Rodrick Sams Work Phone: Start: 03-04-2020 Removal of stent Magda Espinal Start: 08-14-2017 INTRODUCTION OF SERUM/TOX/VACCINE INTO MUSCLE, PERC APPROACH SUPA Irving HEIDT Start: 08-11-2017 MEASURE OF ARTERIAL SATURATION, PERIPHERAL, PERC APPROACH SUPA Irving HEIDT Start: 08-11-2017 RESECTION OF SPLEEN, OPEN APPROACH ALEXANDER OLSON Start: 08-11-2017 TRANSFUSE NONAUT FRO KRYSTYNA PLASMA IN PERIPH VEIN, PERC SUPA Irving HEIDT Start: 08-11-2017 TRANSFUSE NONAUT HARRY TELETS IN PERIPH VEIN, [facility] SUPA Irving HEIDT Start: 08-11-2017 TRANSFUSE NONAUT RED BLOOD CELLS IN PERIPH VEIN, PERC SUPA Irving HEIDT Appendectomy Mela Espinal Cataract (morphologi c abnormality) Mela Espinal History of repair of inguinal hernia Supa Owen Hysterectomy Mela Espinal Splenectomy Mela Espinal Plan of Treatment Date Care Activity Detail Author Start: 09-17-2026 [facility] Start: 09-12-2026 Diabetes Screening [facility] Start: 09-17-2024 End: 09-17-2024 Patient encounter procedure 09/17/2024 4:00 PM EDT Office Visit SUJEY DAWN [address] [address] [place] [phone] Carol Ann Palacios NP [address] [place] [phone] SUJEY DAWN Start: 09-08-2024 End: 09-08-2024 Patient encounter procedure 09/08/2024 9:40 AM EDT [facility] [address] [place] [phone] Giovanni Gill NP [address] [place] [address] [facility] Start: 08-06-2024 Bacteria identified in Urine by Culture Urine Culture [facility] Start: 08-06-2024 Urine culture [facility] Start: 08-06-2024 End: 08-06-2024 Patient encounter procedure 08/06/2024 10:30 AM EST Office Visit [facility] [address] [place] [phone] PocosSupa A, DO [address] [place] [address] [facility] Start: 07-30-2024 End: 07-30-2024 Patient encounter procedure 07/30/2024 8:00 AM EST Office Visit [facility] [address] [place] [phone] Pocos, Herbie, DO [address] [address] Arrived [facility] Comment on above: Arrived Start: 07-24-2024 Urine culture [facility] Start: 07-24-2024 Bacteria identified in Urine by Culture Urine Culture [facility] Start: 06-11-2024 Advance Directive Discussion Advance Directive Discussion [facility] Start: 05-21-2024 End: 05-21-2024 Patient encounter procedure [facility] Comment on above: Arrived Start: 05-03-2024 End: 05-03-2024 Professional / ancillary services management 05/03/2024 3:20 PM EST Ancillary Procedure [facility] [address] [place] [phone] Cerebral infarction, chronic; Bilateral carotid artery stenosis [facility] Comment on above: Cerebral infarction, chronic; Bilateral carotid artery stenosis Start: 04-21-2024 End: 04-21-2024 Patient encounter procedure 04/21/2024 8:40 AM EST Office Visit [facility] [address] [place] [address] Giovanni Gill NP [address] [place], [place] [phone] Arrived [facility] [address] [facility] Comment on above: Arrived Start: 02-22-2024 End: 02-22-2024 Patient encounter procedure 02/22/2024 3:00 PM EDT Office Visit [facility] [address] [place] [place] [address] Mariola Montes PA-C [address] [place] [address] [facility] Start: 02-10-2024 Covid-19 Vaccine () Covid-19 Vaccine () [facility] Start: 02-10-2024 Covid-19 Vaccine ( season) Covid-19 Vaccine () [facility] Start: 02-10-2024 Influenza vaccination [facility] Start: 01-14-2024 End: 01-14-2024 Patient encounter procedure 01/14/2024 2:00 PM EDT Office Visit [facility] [address] [place] [address] Mariola Montes PA-C [address] [place] [address] 3 mo f/u [facility] Comment on above: 3 mo f/u Start: 10-15-2023 End: 10-15-2023 Follow-up encounter 10/15/2023 10:30 AM EDT [facility] Neurology [address] [place] [address] Neelima Ortega, MIGUEL.GLUER MACHINE SETUP OPERATOR [address] [place] [address] Follow up Neurology Comment on above: Follow up Start: 09-13-2023 End: 12-13-2023 SUJEY BY IFA WITH REFLEX [facility] Work Phone: Comment on above: Expected: 09/13/2023 , Expires: 12/13/2023 Start: 09-13-2023 End: 12-13-2023 Methylmalonate [Moles/volume] in Serum or Plasma [facility] Work Phone: Comment on above: Expected: 09/13/2023 , Expires: 12/13/2023 Start: 09-13-2023 End: 12-13-2023 PROTEIN ELECT RND UR W/INTERP [facility] Work Phone: Comment on above: Expected: 09/13/2023 , Expires: 12/13/2023 Start: 09-13-2023 End: 12-13-2023 PROTEIN ELECTROPHORESIS SERUM W/INTERP [facility] Work Phone: Comment on above: Expected: 09/13/2023 , Expires: 12/13/2023 Start: 06-11-2023 Advance Directive Discussion Advance Directive Discussion [facility] Start: 02-09-2023 Covid-19 Vaccine () Covid-19 Vaccine ( season) [facility] Start: 2021 RSV Vaccine (1 - 1-d ose 75+ series) RSV Vaccine (1 - 1-dose 75+ series) [facility] Start: 10-28-2020 Pneumococcal Vaccine : 50+ (2 of 2 - PCV) Pneumococcal Vaccine: 50+ (2 of 2 - PCV) [facility] Start: 10-28-2020 Pneumococcal Vaccine : 65+ (2 of 2 - PCV) Pneumococcal Vaccine: 65+ (2 of 2 - PCV) [facility] Start: 2011 Screening for osteoporosis Bone Density Screening [facility] Start: 2006 RSV Vaccine (1 - 1-d ose 60+ series) RSV Vaccine (1 - 1-dose 60+ series) [facility] Start: 02-09-1996 Shingrix Vaccine (1 of 2) Avelar grix Vaccine (1 of 2) [facility] Start: 1965 Urine microalbumin profile DTaP,Tdap,Td Vaccine (1 - Tdap) [facility] Start: 02-09-1964 Annual PCP Team [employer] mary alice Disease Visit Annual PCP Team Chronic Disease Visit [facility] Start: 02-09-1964 Anxiety Screening Anxiety Screening [facility] Start: 02-09-1964 BP Controlled (<130/80) BP Con trolled (<130/80) [facility] Start: 02-09-1964 Depression Screening Depression Scre ening [facility] Start: 02-09-1964 Hepatitis C screening Hepatitis C [facility] End: 10-12-2024 MR Cervical spine WO contrast MRI CERVICAL SPINE WO IVCON Radiology Routine Spinal stenosis of cervical region 1 Occurrences starting 09/13/2023 until 10/12/2024 [facility] Work Phone: Comment on above: 1 Occurrences starti ng 09/13/2023 until 10/12/2024 End: 10-12-2024 MR Lumbar spine WO contrast MRI LUMBAR SPINE WO IVCON Radiology Routine Spinal stenosis of lumbar region with neurogenic claudication 1 Occurrences starting 09/13/2023 until 10/12/2024 [facility] Work Phone: Comment on above: 1 Occurrences starti ng 09/13/2023 until 10/12/2024 End: 10-12-2024 MR Thoracic spine WO contrast MRI THORACIC SPINE WO IVCON Radiology Routine Abnormal posture 1 Occurrences starting 09/13/2023 until 10/12/2024 [facility] Work Phone: Comment on above: 1 Occurrences starti ng 09/13/2023 until 10/12/2024 XR Wrist - right 3 Views XR wris t 3+ views right Imaging Routine Right wrist pain 07/30/2024 7:58 AM EST [facility] Work Phone: XR Wrist - right 3 Views XR wris t 3+ views right Imaging Routine Right wrist pain 08/06/2024 8:11 AM EST [facility] Work Phone: [facility] Immunizations Immunization Date Immunization Notes Care Provider Fa [facility] 03-14-2021 influenza virus vacc ine, unspecified formulation David Valente MD Work Phone: [facility] Payers Date Payer Category Payer Medicare [id number] 2023 Self-pay [id number] 2023 Unknown 2020 Private Health Insurance [id number] 2011 Medicare [id number] 1959 Medicare [id number] 1959 Unknown [id number] 1946 Unknown [id number] 2.16.84 0.1.953634.3.579.2.593 1946 Unknown [id number] 2.16.84 0.1.331848.3.579.2.593 1946 Unknown [id number] 2.16.84 0.1.038544.3.579.2.593 1946 Unknown [id number] 2.16.84 0.1.472039.3.579.2.593 1946 Unknown [id number] 2.16.84 0.1.864107.3.579.2.593 1946 Unknown [id number] 2.16. 840.1.928491.3.579.2.196 1946 Unknown [id number] 2.16. 840.1.081143.3.579.2.196 1946 Unknown [id number] 2.16. 840.1.387322.3.579.2.196 1946 Unknown [id number] 2.16. 840.1.349796.3.579.2.196 1946 Unknown [id number] 2.16. 840.1.641510.3.579.2.196 1946 Unknown [id number] 2.16.8 40.1.131189.3.579.2.727 1946 Unknown [id number] 2.16.8 40.1.855596.3.579.2.727 1946 Unknown [id number] 2.16.8 40.1.823390.3.579.2.727 1946 Unknown [id number] 2.16.8 40.1.041138.3.579.2.727 1946 Unknown [id number] 2.16.8 40.1.247190.3.579.2.727 1946 Unknown [id number] 2.16.84 0.1.906561.3.579.2.1259 1946 Unknown [id number] 2.16.84 0.1.402950.3.579.2.1259 1946 Unknown [id number] 2.16.84 0.1.839665.3.579.2.1259 1946 Unknown [id number] 2.16.84 0.1.877655.3.579.2.1259 1946 Unknown [id number] 2.16.84 0.1.721537.3.579.2.1259 1946 Unknown [id number] 2.16.84 0.1.432340.3.579.2.1259 1946 Unknown [id number] 2.16.84 0.1.875316.3.579.2.1259 1946 Unknown [id number] 2.16.84 0.1.663679.3.579.2.1259 1946 Unknown [id number] 2.16.8 40.1.083609.3.579.2.727 Medicare [id number] Unknown [id number] 2.16.8 40.1.432962.3.579.2.531 Unknown [id number] 2.16.8 40.1.692119.3.579.2.531 Unknown [id number] 2.16.8 40.1.238861.3.579.2.531 Social History Date Type Detail [facility] Work Phone: Start: 1945 Sex Assigned At Female F [facility] Start: 03-04-2020 End: 08-03-2024 Tobacco smoking status Ex-smoker (finding) [facility] Start: 09-13-2023 End: 08-06-2024 Sex Assigned At Female Adnerson Swan [facility] Start: [birth year]-02-1957 End: 04-30-2019 History of tobacco use Current smoker [facility] Start: [birth year]-02-1957 End: 04-30-2019 History of tobacco use Cigarette Smoker [facility] Start: 09-13-2023 End: 08-06-2024 Cigarettes smoked current (pack per day) - Reported 0.5 [facility] Start: 09-13-2023 End: 07-30-2024 Tobacco use and exposure Smokeless tobacco non-user [facility] Start: 09-13-2023 End: 07-16-2024 Alcohol intake Current non-drinker of alcohol (finding) [facility] Adult Depression Screening Assessment 0 [facility] Start: 1945 Sex Assigned At Not on file [facility] Start: 10-25-2023 End: 07-30-2024 Tobacco smoking status ILIS Never smoked tobacco [facility] Start: 10-29-2023 End: 08-06-2024 Alcoholic beverage intake Lifetime non-drinker (finding) [facility] Start: 10-25-2023 Alcohol Comment caffeine: 1-2 cups per day [facility] Tobacco smoking stat us ILIS Unknown if ever smoked [facility] Work Phone: Start: 07-26-2024 End: 08-07-2024 Sex Female (finding) [facility] Medical Equipment Procedure Code Equipment Code Equipment Origin al Text Equipment Identifier Dates WRIST FRACTURE O RIF Pocos DO, Herbie 08/12/24 Non Biological Wrist R FDA Start: 08-12-2024 WRIST FRACTURE O RIF Pocos DO, Herbie 08/12/24 Non Biological Wrist R FDA Start: 08-12-2024 WRIST FRACTURE O RIF Pocos DO, Herbie 08/12/24 Non Biological Wrist R FDA Start: 08-12-2024 WRIST FRACTURE O RIF Pocos DO, Herbie 08/12/24 Non Biological Wrist R FDA Start: 08-12-2024 WRIST FRACTURE O RIF Pocos DO, Herbie 08/12/24 Non Biological Wrist R FDA Start: 08-12-2024 WRIST FRACTURE O RIF Pocos DO, Herbie 08/12/24 Non Biological Wrist R FDA Start: 08-12-2024 Functional Status Date Assessment Result Facility 08-07-2024 Functional Status No [facility] 08-03-2024 Functional Status N/A [facility] 07-26-2024 Functional Status N/A [facility] 07-24-2024 Functional Status N/A [facility] 07-16-2023 Functional Status N/A [facility] 06-23-2023 Functional Status N/A [facility] 06-23-2023 Functional Status [facility] 08-20-2014 Are you deaf, or do you have serious difficulty hearing No 08/20/2014 7:00 AM Felicia Guillory LPN [facility] 08-20-2014 Are you blind, or do you have serious difficulty seeing, even when wearing glasses No 08/20/2014 7:00 AM Felicia Guillory LPN [facility] 08-20-2014 Do you have serious difficulty walking or climbing stairs No 08/20/2014 7:00 AM Felicia Guillory LPN [facility] 08-20-2014 Do you have difficul ty dressing or bathing No 08/20/2014 7:00 AM Felicia Guillory LPN [facility] 08-20-2014 Because of a physica l, mental, or emotional condition, do you have difficulty doing errands alone such as visiting a physician's office or shopping No 08/20/2014 7:00 AM Felicia Guillory LPN [facility] Mental Status Date Assessment Result Facility 08-20-2014 Because of a physica l, mental, or emotional condition, do you have serious difficulty concentrating, remembering, or making decisions No 08/20/2014 7:00 AM Felicia Guillory LPN No [facility] Clinical Notes 01-12-2023 to 08-12-2024 Note Date & Type Note Facility 08-12-2024 Evaluation + Plan note Extrac ej from: Title:ANES Post-operative No te---General [facility] Author:Yulissa Benton MD Date:08/12/24 Plan Transfer/Discharge: Transfer/Discharge Discharge when meets criteria ( From PACU to floor ). Extracted from: Title:ANES Pre-operative Note Author:Yulissa Benton MD. Date:08/12/24 Plan [employer] (ASA) physical status classification: Class III. Anesthetic Preoperative Plan: Anesthesia General. [facility] 03-04-2025 Hospital Discharge instructions Patient Education 08/12/2024 10:26:35 Post Op Patient Instructions - FT (Custom) (CUSTOM) 08/08/2024 17:00:07 [place] - Home Care Instructions (Custom) [place], [place] [facility] OUTPATIENT SURGERY Home Care Instructions Medications You will be given a prescription for pain medication. Please notify the office immediately if you have any allergies to pain medications. About Your Surgical Site Do not remove your bandages or splint. Do not get the incision wet until suture removal. Use brace/splint at all times. Activity You may gradually progress your activities as comfortably tolerated. Continue to ice and elevate your surgical site for the next 48 hours and continue restricted use. Remain off work until your first office visit. Diet You may resume your regular diet as tolerated. Please remember to take your pain medication with food to avoid stomach upset. Increased liquid intake is encouraged for 48 hours after discharged home. Anesthesia Precautions Do not operate a vehicle (automobile, bicycle, motorcycle), machinery or power tools, or drink alcohol beverages for 24 hours. Do not drink any alcohol beverages while you are taking your pain medication. Arrange for a responsible adult to remain with you for at least 24 hours, possibly longer. You may be drowsy and light-headed from the anesthesia and possibly from your pain medication as well. Expectations of Surgery You may have mild to moderate discomfort for the first several days. This should gradually decrease. Any increased discomfort should be reported to the office. Call the office with any of the following: any persistent or heavy bleeding, temperature above 101.5 degrees, increasing redness, swelling or drainage at the operative site, severe and increasing pain at the operative site, persistent vomiting. About your follow-up office visit You will be given a card with your post-operative date and time for this appointment. Report any problems prior to that time. Driving: Do not drive. Supa Owen DO [facility] [address] [place] [address] [id number] Reviewed: 4-08 Follow Up Care 08/06/2024 11:32:31 With:Supa Owen DO, ORT Address: [address] [place] [address]- When:08/25/2024 13:15:00 [facility] 02-28-2025 NotePatient Education - Text [place], [place] [facility] OUTPATIENT SURGERY Home Care Instructions Medications You will be given a prescription for pain medication. Please notify the office immediately if you have any allergies to pain medications. About Your Surgical Site Do not remove your bandages or splint. Do not get the incision wet until suture removal. Use brace/splint at all times. Activity You may gradually progress your activities as comfortably tolerated. Continue to ice and elevate your surgical site for the next 48 hours and continue restricted use. Remain off work until your first office visit. Diet You may resume your regular diet as tolerated. Please remember to take your pain medication with food to avoid stomach upset. Increased liquid intake is encouraged for 48 hours after discharged home. Anesthesia Precautions Do not operate a vehicle (automobile, bicycle, motorcycle), machinery or power tools, or drink alcohol beverages for 24 hours. Do not drink any alcohol beverages while you are taking your pain medication. Arrange for a responsible adult to remain with you for at least 24 hours, possibly longer. You may be drowsy and light-headed from the anesthesia and possibly from your pain medication as well. Expectations of Surgery You may have mild to moderate discomfort for the first several days. This should gradually decrease. Any increased discomfort should be reported to the office. Call the office with any of the following: any persistent or heavy bleeding, temperature above 101.5 degrees, increasing redness, swelling or drainage at the operative site, severe and increasing pain at the operative site, persistent vomiting. About your follow-up office visit You will be given a card with your post-operative date and time for this appointment. Report any problems prior to that time. Driving: Do not drive. Supa Owen, DO [facility] [address] [place] [address] Reviewed: 09-16[facility]02-26-2025 History of Present illness Narrative* Teodora David - 08/06/2024 10:30 AM EST Images from the original note were not included. GENERAL HISTORY AND PHYSICAL: NAME: Judith Khan : 1945 CHIEF COMPLAINT: Right distal radius and ulnar fracture. HISTORY OF PRESENT ILLNESS: This is a 79 y.o. female who presents for a pre-op H&P. Judith is a 79-year-old white female who presents complaining of pain and difficulty about her right wrist. She did have the mechanical fall. She was seen here last. We did recommend watching this for a week and getting some comment from her neurology team regarding fitness for surgery. Her daughter did feel vu t we were planning a surgery for her. We did explain that there must be some misunderstanding with that. Either way, the patient feels she would like to go ahead with surgery. Her daughter certainly feels she should have a surgery as the most predictable outcome. As such, the focus quickly shifts to that discussion here today. She has apparently been disoriented, confused and they feel she may have sepsis from a urinary tract infection ongoing. She was at [facility] and the discussion was that it did not warrant admission to the hospital. [facility] [place] [facility] this visit here today. PAST MEDICAL HISTORY: Past Medical History: Diagnosis Date COPD (chronic obstructive pulmonary disease) (CMS/HCC) H/O splenectomy Hypertension (CMS/HCC) Parkinson disease (CMS/HCC) Recurrent UTI Ruptured spleen PAST SURGICAL HISTORY: Past Surgical History: Procedure Laterality Date SPLENECTOMY, TOTAL SOCIAL HISTORY: Social History Occupational History Not on file Tobacco Use Smoking status: Never Smokeless tobacco: Never Substance and Sexual Activity Alcohol use: Never Comment: caffeine: 1-2 cups per day Drug use: Never Sexual activity: Defer ALLERGIES: Allergies Allergen Reactions Sulfa Antibiotics MEDICATIONS: Current Outpatient Medications Medication Instructions ALPRAZolam (XANAX) 1 mg, Nightly amantadine (SYMMETREL) 100 mg, 2 times daily amLODIPine (Norvasc) 5 MG tablet TAKE 1 TABLET BY MOUTH ONCE A DAY DIRECTED aspirin 81 mg, Daily Calcium Carbonate-Vit D-Min (Calcium 600+D Plus Minerals) 600-400 MG-UNIT tablet Every 24 hours carbidopa-levodopa CR (Sinemet CR) 25-100 MG ER tablet TAKE 1 TABLET BY MOUTH 3 TIMES A DAY (7AM, 12PM AND 5PM) cephalexin (KEFLEX) 500 [address] [facility] Acetaminophen Ex St 500 mg, Every 6 hours PRN cyclobenzaprine (FLEXERIL) 10 mg, 2 times daily PRN gabapentin (NEURONTIN) 300 mg, 3 times daily KLOR-CON 20 MEQ ER tablet 1 tablet, 2 times daily with meals lisinopril-hydroCHLOROthiazide 20-25 MG tablet 1 tablet, Daily metoprolol tartrate (LOPRESSOR) 100 mg, 2 times daily omeprazole (PRILOSEC) 20 mg, Daily before breakfast oxyCODONE-acetaminophen (Percocet) 5-325 MG tablet pantoprazole (PROTONIX) 40 mg, Daily before breakfast phenazopyridine (PYRIDIUM) 200 mg, 3 times daily with meals potassium chloride CR (Klor-Con) 10 MEQ ER tablet 20 mEq, 2 times daily pravastatin (PRAVACHOL) 20 mg, Daily rasagiline (AZILECT) 1 mg, Oral, Daily rOPINIRole (REQUIP) 0.25 mg, Nightly Sinemet 25-100 MG tablet 1 tablet, 3 times daily spironolactone (Aldactone) 50 MG tablet TAKE 1 TABLET BY MOUTH EVERY DAY FOR 3 DAYS sucralfate (Carafate) 1 g tablet TAKE 1 TABLET BY MOUTH 4 TIMES A DAY ON AN EMPTY STOMACH FOR 7 DAYS UNABLE TO FIND HANDICAP PLACARD REVIEW OF SYSTEMS: The review of systems, history and current medications list are all reviewed today. Vitals: Visit Vitals Ht 5' 5 Wt 108 lb BMI 17.97 kg/m Smoking Status Never BSA 1.5 m PHYSICAL EXAM: Her exam here today does show swelling to be down. She does have the ecchymosis. Shedoes have tenderness to palpation over the fracture site into the fingers. The fingers are very stiff as she is not using them. Her neurocirculatory status is otherwise grossly intact. Examination of the contralateral left wrist and hand are benign here today. X-rays are done AP, lateral and oblique of the right wrist, total of three views, does show the dorsally angulated, slightly dorsally displaced distal radius fracture with significant osteopenia, questionably osteoporosis. She does have the associated ulnar styloid. This is an intraarticular fracture pattern. Surgical History and Physical: GENERAL AND PSYCHOLOGICAL: The patient is alert and oriented for age. HEAD AND E.E.N.T.: The skull is normocephalic. There is no mass or sign of trauma. NECK: The neck is supple. There is good range of motion. There is no mass or adenopathy appreciated. The thyroid is not enlarged. CARDIAC: The heart is regular. There is no murmur or ectopy appreciated. LUNGS: Inspiratory and expiratory excursions are symmetrical. The lung calderon are clear in all quadrants. ABDOMEN: The texture is soft. Bowel sounds are heard well in all quadrants. There is no tenderness to palpation. There is no organomegaly appreciated. OSTEOPATHIC AND STRUCTURAL: There is no gross evidence of kyphosis, lordosis, scoliosis, or apparent leg length discrepancy, with no acute tissue texture changes in sitting or standing positions. ASSESSMENT: Right distal radius and ulnar fracture, status post fall. History of Parkinson's disease. PLAN: The findings are discussed. We did outline the findings here today. The groups wishes to are move forward with surgical intervention. We did explain at this point and just based upon her bone quality, the most definitive likely would be that of open reduction and internal fixation. We did discuss some of exam here today downfalls of this procedure including bone quality. This unfortunately wouldn't be completely understood until manipulation of the bone. We did discuss risks, complications, and reasonable expectations of this procedure. These include but are not limited to infection which may necessitate further surgery, nerve or blood vessel injury, wound healing difficulty and dehiscence, stiffness, failure, plate migration, malunion as well as the time frame of healing. Routine testing will be done based upon age and gender. Her neurologist from [facility] has [place] such as this. We did outline the fact that we will need to define her current disease and she is going to the [facility]. We did explain to the family that someone will need to let us know her medical fitness and ability to have surgery. Vipul tentatively plan this into next week on 08-12-2024. We will have a window to perform this. If her illness does take her outside that window, the recommendation would clearly shift to conservative care. All questions are otherwise answered. Follow up letter sent to Dr. Sams. Supa Owen D.O. Cosigned by Supa Owen DO at 08/07/2024 10:39 AM EST documented in this encounterPike County Memorial [id number] Hospital Discharge instructions Patient Education 08/03/2024 21:46:36 Urinary Tract Infection, Adult Urinary Tract Infection, [...] Treatment for this condition includes: Antibiotic medicine. Uutg-nfs-timhbdb medicines to treat discomfort. Drinking enough water [...] Follow these instructions at home: Medicines Take ufgp-ump-lwhmkae and prescription medicines only as told by [...] with your health care provider. Document Revised: 01/02/2021 Document Reviewed: 01/07/2021 Curbside Patient Education 2023 Tendril. Follow Up Care 08/03/2024 18:52:10 With:Rodrick Sams Address: [address] [place] [address] Business (1) When:08/06/2024 21:45:46 Comments:Call the office of your primary care doctor to arrange for follow-up within the above-stated timeframe. Follow-up with your primary care doctor about this ED visit. You should review your labs, imaging, and diagnoses from this ED visit with your primary care physician. There are occasionally non-emergent findings that require additional follow-up after your ED visit. If you were prescribed medications you should discuss possible side-effects and drug interactions with your pharmacist. Call 911 or go to the nearest Emergency Department if you develop any new or worsening symptoms. [facility] 02-23-2025 NoteED Patient Education Note Obstetrics and Gynecology Urinary Tract Infection, Adult [...] more likely to develop this condition if: ??? You have a urinary catheter that stays in place. ??? You are not able to control when you urinate or have a bowel movement (incontinence). ??? You are female and you: ? Use a spermicide or diaphragm for control. ? Have low estrogen levels. ? Are . ??? You have certain genes that increase your risk. ??? You are sexually active. ??? You take antibiotic medicines. ??? You have a condition that causes your flow of urine to slow down, such as: ? An enlarged prostate, if you are male. ? Blockage in your urethra. ? A kidney stone. ? A nerve condition that affects your bladder control (neurogenic bladder). ? Not getting enough to drink, or not urinating often. ??? You have certain medical conditions, such as: ? Diabetes. ? A weak disease-fighting system (immunesystem). ? Sickle cell disease. ? Gout. ? Spinal cord injury. What are the signs or symptoms? Symptoms of this condition include: ??? Needing to urinate right away (urgency). ??? Frequent urination. This may include small amounts of urine each time you urinate. ??? Pain or burning with urination. ??? Blood in the urine. ??? Urine that smells bad or unusual. ??? Trouble urinating. ??? Cloudy urine. ??? Vaginal discharge, if you are female. ??? Pain in the abdomen or the lower back. You may also have: ??? Vomiting or a decreased appetite. ??? Confusion. ??? Irritability or tiredness. ??? A fever or chills. ??? Diarrhea. The first symptom in older adults may be confusion. In some cases, they may not have any symptoms until the infection has worsened. How is this diagnosed? This condition is diagnosed based on your medical history and a physical exam. You may also have other tests, including: ??? Urine tests. ??? Blood tests. ??? Tests for STIs (sexually transmitted infections). If you have had more than one UTI, a cystoscopy or imaging studies may be done to determine the cause of the infections. How is this treated? Treatment for this condition includes: ??? Antibiotic medicine. ??? Syad-vhv-lqoeypl medicines to treat discomfort. ??? Drinking enough water to stay hydrated. If [...] medicines. Follow these instructions at home: Medicines ??? Take vtaw-bro-acttllt and prescription medicines only as told by your health care provider. ??? If you were prescribed an antibiotic medicine, take it as told by your health care provider. Donot stop using the antibiotic even if you start to feel better. General instructions ??? Make sure you: ? Empty your bladder often and completely. Do not hold urine for long periods of time. ? Empty your bladder after sex. ? Wipe from front to back after urinating or having a bowel movement if you are female. Use each tissue only one time when you wipe. ??? Drink enough fluid to keep your urine pale yellow. ??? Keep all follow-up visits. This is important. Contact a health care provider if: ??? Your symptoms do not get better after 1?2 days. ??? Your symptoms go away and then return. Get help right away if: ??? You have severe pain in your back or your lower abdomen. ??? You have a fever or chills. ??? You have nausea or vomiting. Summary ??? A urinary tract infection (UTI) is an infection of any part of the urinary tract, which includes the kidneys, ureters, bladder, and urethra. ??? Most urinary tract infections are caused by bacteria in your genital area. ??? Treatment for this condition often includes antibiotic medicines. ??? If you were prescribed an antibiotic medicine, take it as told by your health care provider. Donot stop using the antibiotic even if you start to feel better. ??? Keep all follow-up visits. This is important. This information is not intended to replace advice given to you by your health care provider. Make tracy (more content not included)...[facility]02-23-2025 Evaluation + Plan noteExtracted from: Title:ED Note Author:Demarco Beaver DO Date: Acute UTI (N39.0: Urinary tr act infection, site not specified) Orders: cephalexin, 500 mg = 1 cap(s), Cap, Oral, Once, Stop date 08/03/24 21:45:00 EST, STAT, Start date 08/03/24 21:45:00 EST, 08/03/24 21:45:00 EST cephalexin, 500 mg = 1 cap(s), Oral, q12hr, X 5 day(s), # 10 cap(s), Refills(s) 0, Pharmacy: [facility]/pharmacy #[id number], 167, cm, 08/03/24 19:04:00 EST, Height/Length Dosing, 54.2, kg, 08/03/24 19:04:00 EST, Weight Dosing Basic Metabolic Panel CBC w/ Auto Diff CT Head or Brain w/o Contrast ED Cardiac Monitoring eGFR Extra Blue Tube Routine Capillary Glucose POC UA with Cult Rflx Urine Culture Diagnostic Tests Pending * Urine Culture 08/03/24 [facility] [id number] Telephone encounter Note* Telephone Encounter - Gabbi Lu - 07/30/2024 1:57 PM EST Form received via fax. Not really anything for RN's to complete. Sent via [employer] to Mariola. [facility]02-19-2025 Miscellaneous Notes* Telephone Encounter - Gabbi Lu - 07/30/2024 1:57 PM EST Form received via fax. Not really anything for RN's to complete. Sent via [employer] to Mariola. * Telephone Encounter - Gabbi Lu - 07/30/2024 1:[address] Owen office phoned - patient fell an broke her ulna and will need surgery. They would like to discuss with [place] from PD standpoint if ok for surgery. [phone] She will also fax over a generic form for completion. Can either call or complete form. [facility] Telephone encounter Note * Telephone Encounter - Gabbi Lu - 07/30/2024 1:[address] Owen office phoned - patient fell an broke her ulna and will need surgery. They would like to discuss with [place]ola from PD standpoint if ok for surgery. [phone] She will also fax over a generic form for completion. Can either call or complete form. [facility]02-19-2025 History of Present illness Narrative* Teodora David - 07/30/2024 8:00 AM EST Images from the original note were not included. GENERAL HISTORY AND PHYSICAL: NAME: Judith Khan : 1945 CHIEF COMPLAINT: Right wrist fracture. HISTORY OF PRESENT ILLNESS: This is a 79 y.o. female who presents for a pre-op H&P. Judith is a 79-year-old right hand dominant white female seen here today with her daughter for evaluation of herright wrist. She fell in her toy room at home with her grandkids apparently. This was on 07-24-2024. She wound up in the Emergency Department the same day where she is diagnosed with a fracture. She is now being seen here for follow up of this. She does have advanced Parkinson's disease. She deniesany numbness or tingling. No new or interval symptoms. She has been advancing her activities as is otherwise tolerated. PAST MEDICAL HISTORY: Past Medical History: Diagnosis Date COPD (chronic obstructive pulmonary disease) (CMS/HCC) H/O splenectomy Hypertension (CMS/HCC) Parkinson disease (CMS/HCC) Recurrent UTI Ruptured spleen PAST SURGICAL HISTORY: Past Surgical History: Procedure Laterality Date SPLENECTOMY, TOTAL SOCIAL HISTORY: Social History Occupational History Not on file Tobacco Use Smoking status: Never Smokeless tobacco: Never Substance and Sexual Activity Alcohol use: Never Comment: caffeine: 1-2 cups per day Drug use: Never Sexual activity: Defer ALLERGIES: Allergies Allergen Reactions Sulfa Antibiotics MEDICATIONS: Current Outpatient Medications Medication Instructions ALPRAZolam (XANAX) 1 mg, Nightly amantadine (SYMMETREL) 100 mg, 2 times daily amLODIPine (Norvasc) 5 MG tablet TAKE 1 TABLET BY MOUTH ONCE A DAY DIRECTED aspirin 81 mg, Daily Calcium Carbonate-Vit D-Min (Calcium 600+D Plus Minerals) 600-400 MG-UNIT tablet Every 24 hours carbidopa-levodopa CR (Sinemet CR) 25-100 MG ER tablet TAKE 1 TABLET BY MOUTH 3 TIMES A DAY (7AM, 12PM AND 5PM) ciprofloxacin (Cipro) 500 MG tablet Oral [facility] Acetaminophen Ex St 500 mg, Every 6 hours PRN cyclobenzaprine (FLEXERIL) 10 mg, 2 times daily PRN gabapentin (NEURONTIN) 300 mg, 3 times daily KLOR-CON 20 MEQ ER tablet 1 tablet, 2 times daily with meals lisinopril-hydroCHLOROthiazide 20-25 MG tablet 1 tablet, Daily metoprolol tartrate (LOPRESSOR) 100 mg, 2 times daily omeprazole (PRILOSEC) 20 mg, Daily before breakfast oxyCODONE-acetaminophen (Percocet) 5-325 MG tablet TAKE 1 TABLET BY MOUTH EVERY 6 HOURS NEEDED FOR PAIN (8-10) FOR 3 DAYS pantoprazole (PROTONIX) 40 mg, Daily before breakfast phenazopyridine (PYRIDIUM) 200 mg, 3 times daily with meals potassium chloride CR (Klor-Con) 10 MEQ ER tablet 20 mEq, 2 times daily pravastatin (PRAVACHOL) 20 mg, Daily rasagiline (AZILECT) 1 mg, Oral, Daily rOPINIRole (REQUIP) 0.25 mg, Nightly Sinemet 25-100 MG tablet 1 tablet, 3 times daily spironolactone (Aldactone) 50 MG tablet TAKE 1 TABLET BY MOUTH EVERY DAY FOR 3 DAYS sucralfate (Carafate) 1 g tablet TAKE 1 TABLET BY MOUTH 4 TIMES A DAY ON AN EMPTY STOMACH FOR 7 DAYS UNABLE TO FIND HANDICAP PLACARD REVIEW OF SYSTEMS: The review of systems, history and current medications list are all reviewed today. Vitals: Visit Vitals Ht 5' 5 Wt 108 lb BMI 17.97 kg/m Smoking Status Never BSA 1.5 m PHYSICAL EXAM: Her orthopedic exam here today shows obvious swelling, some ecchymosis. Her neurocirculatory status is overall grossly intact to all distributions. Her pulses are otherwise brisk. Examination of the contralateral left wrist reveals arc of motion without difficulty. Neurocirculatory status is overall grossly intact. Her pulses are otherwise brisk. X-rays AP, lateral and oblique of the right wrist here today total of three views with permanent images are saved to the record does show a dorsally angulated, slightly dorsally displaced distal radius fracture. There is an associated ulnar styloid fracture. She does have neutral variance noted because of this. No evidence of new or further finding of significance. Surgical History and Physical: GENERAL AND PSYCHOLOGICAL: The patient is alert and oriented for age. HEAD AND E.E.N.T.: The skull is normocephalic. There is no mass or sign of trauma. NECK: The neck is supple. There is good range of motion. There is no mass or adenopathy appreciated. The thyroid is not enlarged. CARDIAC: The heart is regular. There is no murmur or ectopy appreciated. LUNGS: Inspiratory and expiratory excursions are symmetrical. The lung calderon are clear in all quadrants. ABDOMEN: The texture is soft. Bowel sounds are heard well in all quadrants. There is no tenderness to palpation. There is no organomegaly appreciated. OSTEOPATHIC AND STRUCTURAL: There is no gross evidence of kyphosis, lordosis, scoliosis, or apparent leg length discrepancy, with no acute tissue texture changes in sitting or standing positions. ASSESSMENT: Right distal radius fracture and ulnar fracture with history of Parkinson's, underweight. PLAN: The findings are discussed. We did discuss the options available to her and did discuss surgical intervention as being the most predictable. We did outline the option of conservative care and watchful observation with letting this heal, followed by going ahead with more aggressive physical therapy thereafter. She does voice understanding of this. After a lengthy discussion here today, both she and her daughter do decide they would like to go through the surgical discussion and planning. This patient does have advanced Parkinson's. She has now been referred to the [facility] on this. We will go ahead and obtain comment as to whether she is physically fit and medically stable withregard to the Parkinson's for surgery as well as [place] [facility] [place] neurology service 01/01. We did discuss the risks, complications, and reasonable expectations of the procedure. These include but are not limited to infection which may necessitate further surgery, nerveor blood vessel injury, wound healing difficulty and dehiscence, the expectations with regard to recovery, stiffness, physical therapy, failure. We did outline closed reduction and percutaneous pin fixation with the possibility of open reduction and internal fixation. She does voice understanding of this. Routine testing will be done. She just had some testing in the Emergency Room. We will see her back in the postoperative period. Follow up letter sent to Dr. Sams. Supa Owen D.O. Cosigned by Supa Owen DO at 08/03/2024 4:35 PM EST documented in this encounterP[facility] [id number] Hospital Discharge instructions Follow Up Care 07/26/2024 15:54:15 With:Rodrick Sams Address: [address] [place] [address] Business (1) When:Within 3 Day(s) [facility] [id number] Evaluation + Plan noteExtracted from: Title:ED Note Author:Jazmin Morfin DO Date:07/12 11/02 Altered mental status (R41.8 2: Altered mental status, unspecified) Dehydration (E86.0: Dehydration) UTI (urinary tract infection) (N39.0: Urinary tract infection, site not specified) Orders: ciprofloxacin, 500 mg = 1 tab(s), Tab, Oral, Once, Stop date 07/26/24 18:25:00 EST, STAT, Start date 07/26/24 18:25:00 EST, 07/26/24 18:25:00 EST ciprofloxacin, 500 mg = 1 tab(s), Oral, BID, # 14 tab(s), Refills(s) 0, Pharmacy: [facility]/pharmacy #[id number], 167, cm, 07/26/24 16:07:00 EST, Height/Length Dosing, 54, kg, 07/26/24 16:07:00 EST, Weight Dosing Sodium Chloride 0.9% intravenous solution 1,000 mL, 1,000 mL, IV, 1,000 mL/hr, STAT, Start date 07/26/24 17:05:00 EST, 1 hour(s), Total volume (mL): 1,000, 54 kg, 1.58, m2 Basic Metabolic Panel CBC w/ Auto Diff CT Head or Brain w/o Contrast eGFR Troponin 0 Hr. Troponin 1 Hr. UA with Cult Rflx Urine Culture XR Chest Single View Diagnostic Tests Pending * Urine Culture 07/26/24 [facility] 02-13-2025 Hospital Discharge instructions Patient Education 07/24/2024 21:34:14 Colles Fracture Colles Fracture A Colles fracture is a type of broken wrist. It means that the radius bone is broken or cracked near the wrist joint. The radius is one of two bones in the forearm. It is on the same side as the thumb. The other forearm bone is called the ulna. Often, when someone has a Colles fracture, the ulna isalso broken. As this injury heals, a splint or a cast is used to prevent the injured bone from moving (keep it immobilized). What are the causes? Common causes of this type of fracture include: A hard, direct hit to the wrist. Injuries, such as a car crash or falling on an outstretched hand. What increases the risk? The following factors may make you more likely to develop this condition: Playing contact sports or high-risk sports, such as skiing, biking, or ice-skating. Smoking. Drinking more than three alcoholic beverages a day. Having low or lowered bone density (osteoporosis or osteopenia). Being an older adult. Young children also have a higher risk. Being a woman who has gone through menopause. Having a history of bone fractures. Not getting enough (having a deficiency in) calcium or vitamin D. What are the signs or symptoms? Symptoms of this condition include: Tenderness, bruising, and swelling over the fracture, which is usually near the wrist. The wrist hanging in an odd position or looking misshapen (deformed). Difficulty moving the wrist. How is this diagnosed? This condition may be diagnosed based on: A physical exam. Your symptoms and medical history. An X-ray of the forearm and wrist. How is this treated? Treatment depends on many factors, including your age, your activity level, and how severe your fracture is. Treatment may include: Immobilizing the wrist with a splint or a cast for several weeks. Before a splint or cast is placedon the arm, the health care provider may move the fractured bone or bones back into place (realignment). Surgery. This may be done if the bone is completely out of place (displaced). Metal pins or other devices may be used to help hold the bone in place while it heals. After surgery, the arm is put in asplint or cast. Physical therapy. Pain medicine. Follow these instructions at home: If you have a splint: Wear the splint as told by your health care provider. Remove it only as told by your health care provider. Loosen the splint if your fingers tingle, become numb, or turn cold and blue. Keep the splint clean. If your splint is not waterproof: ?Do not let it get wet. ?Cover it with a watertight covering when you take a bath or a shower. If you have a cast: Do not stick anything inside the cast to scratch your skin. Doing that increases your risk for infection. Check the skin around the cast every day. Tell your health care provider about any concerns. You may put lotion on dry skin around the edges of the cast. Do not put lotion on the skin underneath the cast. Keep the cast clean. If the cast is not waterproof: ?Do not let it get wet. ?Cover it with a watertight covering when you take a bath or a shower. Managing pain, stiffness, and swelling If directed, put ice on the injured area. To do this: ?If you have a removable splint, remove it as told by your health care provider. ?Put ice in a plastic bag. ?Place a towel between your skin and the bag, or between your cast and the bag. ?Leave the ice on for 20 minutes, 2 3 times a day. ?Remove the ice if your skin turns bright red. This is very important. If you cannot feel pain, heat, or cold, you have a greater risk of damage to the area. Move your fingers often to reduce stiffness and swelling. Raise (elevate) your wrist above the level of your heart while you are sitting or lying down. Activity Do not lift anything that is heavier than 10 lb (4.5 kg), or the limit that you are told, until your health care provider says that it is safe. Do not use your arm to support your body weight until your health care provider says that you can. Ask your health care provider when it is safe to drive if you have a splint or cast on your arm. Return to your normal activities as told by your health care provider. Ask your health care provider what activities are safe for you. If physical therapy was prescribed, do exercises as told by your health care provider. Medicines Take wqmy-ebv-uxycxpw and prescription medicines only as told by your health care provider. Ask your health care provider if the medicine prescribed to you: ?Requires you to avoid driving or using machinery. ?Can cause constipation. You may need to take these actions to prevent or treat constipation: ?Drink enough fluid to keep your urine pale yellow. ?Take sube-eda-zytqfph or prescription medicines. ?Eat foods that are high in fiber, such as beans, whole grains, and fresh fruits and vegetables. ?Limit foods that are high in fat and processed sugars, such as fried or sweet foods. General instructions Do not put pressure on any part of the splint or cast until it is fully hardened. This may take several hours. Do not use any products that contain nicotine or tobacco, such as cigarettes, e- cigarettes, and chewing tobacco. These can delay bone healing. If you need help quitting, ask your health care provider. Keep all follow-up visits. This is important. Contact a health care provider if: Your splint or cast: ?Gets wet or damaged. ?Suddenly feels too tight. You have a fever or chills. You have pain that does not get better with medicine. You have swelling that gets worse. Get help right away if: Your hand or fingers become numb or turn cold, blue, or mueller. You have tingling or numbness in your fingers, even after you loosen your splint (if this applies). Summary A Colles fracture is a type of broken wrist. It often involves both of the bones in the forearm (radius and ulna). Fractures are common in people who play contact sports or high-risk sports. They are also common inolder people who are at risk for osteoporosis. This injury is diagnosed with a physical exam and X-rays. Your wrist will need to be held in place (immobilized) with a splint or cast for several weeks. Youmay need surgery for a more severe fracture. This information is not intended to replace advice given to you by your health care provider. Make sure you discuss any questions you have with your health care provider. Document Revised: 09/06/2020 Document Reviewed: 09/06/2020 [employer] Patient Education 2023 [employer] 07/24/2024 21:34:14 Cast or Splint Care, Adult Cast or Splint Care, Adult Casts and splints are supports that are worn to protect broken bones and other injuries. A cast or splint may hold a bone still and in the correct position while it heals. Casts and splints may also help with pain, swelling, and muscle spasms. A cast is a hardened support that is usually made of fiberglass or plaster. It is custom-fit to thebody and offers more protection than a splint. Most casts cannot be taken off and put back on. A splint is a type of soft support that is usually made from cloth and elastic. It can be adjusted or taken off as needed. Often, when a bone is broken, a splint is put on until the swelling goes down, and then the splint is replaced by a cast. You may need a cast or a splint if you: Have a broken bone. Have a soft-tissue injury. Need to keep an injured body part from moving (keep it immobile) after surgery. What are the risks? In some cases, wearing a cast or splint can cause a reduced blood supply to the wrist or hand or tothe foot and toes. This can happen if there is a lot of swelling or if the cast or splint is too tight. Limited blood supply results in a condition called compartment syndrome and can cause permanentdamage. Symptoms include: Pain that is getting worse. Numbness and tingling. Changes in skin color, including paleness or a bluish color. Cold fingers or toes. Other complications of wearing a cast or splint can include: Skin irritation that can cause itching, rash, skin sores, or skin infection. Limb stiffness or weakness. How to care for a nonremovable cast or splint Do not put pressure on any part of the cast or splint until it is fully hardened. This may take several hours. Check the skin around the cast or splint every day. Tell your health care provider about any concerns. Do not stick anything inside the cast or splint to scratch your skin. Doing that increases your risk of infection. You may put lotion on dry skin around the edges of the cast or splint. Do not put lotion on the skin underneath the cast or splint. Keep the cast or splint clean and dry. How to care for a removable splint Wear the splint as told by your health care provider. Remove it only as told by your health care provider. Check the skin around the splint every day. Tell your health care provider about any concerns. Loosen the splint if your fingers tingle, become numb, or turn cold and blue. Keep the splint clean and dry. Clean your splint as told by your health care provider. Use mild soap and water and let it air-dry. Do not use heat on your splint. Follow these instructions at home: Bathing Do not take baths, swim, or use a hot tub until your health care provider approves. Ask your healthcare provider if you may take showers. You may only be allowed to take sponge baths. If your cast or splint is not waterproof: ?Do not let it get wet. ?Cover it with a watertight covering when you take a bath or shower. Managing pain, stiffness, and swelling If directed, put ice on the affected area. To do this: ?If you have a removable cast or splint, remove it as told by your health care provider. ?Put ice in a plastic bag. ?Place a towel between your skin and the bag or between your cast and the bag. ?Leave the ice on for 20 minutes, 2 3 times a day. ?Remove the ice if your skin turns bright red. This is very important. If you cannot feel pain, heat, or cold, you have a greater risk of damage to the area. Move your fingers or toes often to reduce stiffness and swelling. Raise (elevate) the injured area above the level of your heart while you are sitting or lying down. Safety Do not use the injured limb to support your body weight until your health care provider says that you can. Use crutches or other assistive devices as told by your health care provider. Ask your health care provider when it is safe to drive if you have a cast or splint on part of yourbody. General instructions Take eliv-yer-umuudrn and prescription medicines only as told by your health care provider. Return to your normal activities as told by your health care provider. Ask your health care provider what activities are safe for you. Keep all follow-up visits. This is important. Contact a health care provider if: The skin around the cast or splint gets red or raw. The skin under the cast is extremely itchy or painful. Your cast or splint: ?Gets damaged. ?Feels very uncomfortable. ?Is too tight or too loose. Your cast becomes wet or develops a soft spot or area. You notice a bad smell coming from under your cast. You get an object stuck under your cast. There is fluid leaking through the cast. Get help right away if: You develop any symptoms of compartment syndrome, such as: ?Severe pain or pressure under the cast. ?Numbness, tingling, coldness, or pale or bluish skin. The part of your body above or below the cast is swollen and discolored. You cannot feel or move your fingers or toes. You have trouble breathing or shortness of breath. You have chest pain. Your pain gets worse. These symptoms may represent a serious problem that is an emergency. Do not wait to see if the symptoms will go away. Get medical help right away. Call your local emergency services (911 in the [place] Do not drive yourself to the hospital. Summary Casts and splints are worn to protect broken bones and other injuries. Casts and splints should remain clean and dry. Remove your cast or splint only as told by your health care provider. Get help right away if your pain gets worse, or if you have numbness, tingling, or skin that turns cold, blue, or discolored. This information is not intended to replace advice given to you by your health care provider. Make sure you discuss any questions you have with your health care provider. Document Revised: 11/22/2021 Document Reviewed: 11/22/2021 [employer] Patient Education 2023 [employer]. Follow Up Care 07/24/2024 18:45:49 With:Rodrick Sams Address: [facility] [place] [address]- Business (1) When:07/27/2024 21:43:51 Comments:Call the office of your primary care doctor to arrange for follow-up within the above-stated timeframe. Follow-up with your primary care doctor about this ED visit. You should review your labs, imaging, and diagnoses from this ED visit with your primary care physician. There are occasionally non-emergent findings that require additional follow-up after your ED visit. If you were prescribed medications you should discuss possible side-effects and drug interactions with your pharmacist. Call 911 or go to the nearest Emergency Department if you develop any new or worsening symptoms. With:Supa Owen Address: [address] [place] [phone]- Business (1) When:07/27/2024 21:32:22 Comments:Call office tomorrow to arrange for short-term follow-up for your distal radius fracture.Take pain medication as prescribed. [facility] 02-13-2025 NoteED Patient Education Note Orthopedics Colles Fracture A Colles fracture is a type of broken wrist. It means that the radius bone is broken or cracked near the wrist joint. The radius is one of two bones in the forearm. It is on the same side as the thumb. The other forearm bone is called the ulna. Often, when someone has a Colles fracture, the ulna isalso broken. As this injury heals, a splint or a cast is used to prevent the injured bone from moving (keep it immobilized). What are the causes? Common causes of this type of fracture include: ??? A hard, direct hit to the wrist. ??? Injuries, such as a car crash or falling on an outstretched hand. What increases the risk? The following factors may make you more likely to develop this condition: ??? Playing contact sports or high-risk sports, such as skiing, biking, or ice-skating. ??? Smoking. ??? Drinking more than three alcoholic beverages a day. ??? Having low or lowered bone density (osteoporosis or osteopenia). ??? Being an older adult. Young children also have a higher risk. ??? Being a woman who has gone through menopause. ??? Having a history of bone fractures. ??? Not getting enough (having a deficiency in) calcium or vitamin D. What are the signs or symptoms? Symptoms of this condition include: ??? Tenderness, bruising, and swelling over the fracture, which is usually near the wrist. ??? The wrist hanging in an odd position or looking misshapen (deformed). ??? Difficulty moving the wrist. How is this diagnosed? This condition may be diagnosed based on: ??? A physical exam. ??? Your symptoms and medical history. ??? An X-ray of the forearm and wrist. How is this treated? Treatment depends on many factors, including your age, your activity level, and how severe your fracture is. Treatment may include: ??? Immobilizing the wrist with a splint or a cast for several weeks. Before a splint or cast is placed on the arm, the health care provider may move the fractured bone or bones back into place (realignment). ??? Surgery. This may be done if the bone is completely out of place (displaced). Metal pins or other devices may be used to help hold the bone in place while it heals. After surgery, the arm is put in a splint or cast. ??? Physical therapy. ??? Pain medicine. Follow these instructions at home: If you have a splint: ??? Wear the splint as told by your health care provider. Remove it only as told by your health care provider. ??? Loosen the splint if your fingers tingle, become numb, or turn cold and blue. ??? Keep the splint clean. ??? If your splint is not waterproof: ? Do not let it get wet. ? Cover it with a watertight covering when you take a bath or a shower. If you have a cast: ??? Do not stick anything inside the cast to scratch your skin. Doing that increases your risk for infection. ??? Check the skin around the cast every day. Tell your health care provider about any concerns. ??? You may put lotion on dry skin around the edges of the cast. Do not put lotion on the skin underneath the cast. ??? Keep the cast clean. ??? If the cast is not waterproof: ? Do not let it get wet. ? Cover it with a watertight covering when you take a bath or a shower. Managing pain, stiffness, and swelling ??? If directed, put ice on the injured area. To do this: ? If you have a removable splint, remove it as told by your health care provider. ? Put ice in a plastic bag. ? Place a towel between your skin and the bag, or between your cast and the bag. ? Leave the ice on for 20 minutes, 2?3 times a day. ? Remove the ice if your skin turns bright red. This is very important. If you cannot feel pain, heat, or cold, you have a greater risk of damage to the area. ??? Move your fingers often to reduce stiffness and swelling. ??? Raise (elevate) your wrist above the level of your heart while you are sitting or lying down. Activity ??? Do not lift anything that is heavier than 10 lb (4.5 kg), or the limit that you are told, untilyour health care provider says that it is safe. ??? Do not use your arm to support your body weight until your health care provider says that you can. ??? Ask your health care provider when it is safe to drive if you have a splint or cast on your arm. ??? Return to your normal activities as told by your health care provider. Ask your health care provider what activities are safe for you. ??? If physical therapy was prescribed, do exercises as told by your health care provider. Medicines ??? Take cftg-xle-eszkmqo and prescription medicines only as told by your health care provider. ??? Ask your health care provider if the medicine prescribed to you: ? Requires you to avoid driving or using machinery. ? Can cause constipation. You may need to take these actions to prevent or treat constipation: ? Drink enough fluid to keep your urine (more content not included)...[facility]02-13-2025 Evaluation + Plan noteExtracted from: Title:ED Note Author:Demarco Beaver DORatna Date: Accidental fall (W19.XXXA: U nspecified fall, initial encounter) Wrist injury (S69.90XA: Unspecified injury of unspecified wrist, hand and finger(s), initial encounter) Orders: CT Head or Brain w/o Contrast CT Spine Cervical w/o Contrast ED Cardiac Monitoring NPO Diet Oxygen Therapy Pulse Oximetry Continuous Saline Lock Insert XR Wrist 3+ Views Right [facility] 02-05-2025 Instructions* Patient Instructions* Mariola Montes PA-C - 07/16/2024 3:36 PM [...] Parkinson's Disease Exercise Class at your local [facility] Voice - The Parkinson [employer] makes daily videos with voice exercises to help keep your voiceloud and clear. This is free on [employer] Handwriting - take a look at [employer] for tremor. This often will help people write easier I would like to see you back in about 7 months, before next winter. If you need assistance with scheduling, please call [phone], option 2 to speak with one of our scheduling team members. Movement Disorders Medication Schedule: Medications breakfast lunch bedtime ropinerole 0.25mg 1 azilect 1mg 1 sinemet CR 25/100mg 1 1 1 amantadine 100 mg 1 1 1 Return at or around: 01/13/25 If there are any concerns before your next visit, please call or you can send a message through [employer]. You can also now schedule and select appointments through [employer]. Mariola Montes PA-C [facility] History of Present illness Narrative* Mariola Montes PA-C - 07/16/2024 3:00 PM EST [facility] - FOLLOW UP EVALUATION [...] She has strong family support with her franky sullivaner and granddaughter. Movement Disorders Medications Schedule - [...] TABLET BY MOUTH THREE TIMES A DAY AT7AM, 12PM, AND 5PM gabapentin (NEURONTIN) 300 mg [...] may need more than one attempt, or mayneed to move forward in the chair to arise. No need to use the arms of the chair. Gait 1-Slight. Independent walking with minor gait impairment. Gait Freezing 0-Normal. No freezing. Posture Stability 1-Slight. 3-5 steps, but subject recovers unaided. Posture 2-Mild. Definite flexion, scoliosis or leaning to one side, but patient can correct postureto normal posture when asked to do so. [...] Parkinson's Disease since 2014. She presents to [facility] spring for care after many years [...] possibility of Parkinson's disease class at the [facility]. The following are the current problems [...] Parkinson's Disease Exercise Class at your local [facility] Voice - The Parkinson Voice Project makes daily videos with voice exercises to help keep your voiceloud and clear. This is free on Youtube Handwriting - take a look at Fat Pens for tremor. This often will help people write easier I would like to see you back in about 7 months, before next winter. If you need assistance with scheduling, please call [phone], option 2 to speak with one of our scheduling team members. Interested in clinical research? Not currently Updated Movement Disorders Medication Schedule: Medications breakfast lunch bedtime ropinerole 0.25mg 1 azilect 1mg 1 sinemet CR 25/100mg 1 1 1 amantadine 100 mg 1 1 1 Return at or around: 01/13/25 Level of service : 99056 (40-68 min). Time spent 43 min on the day of service, which included preparing to see the patient, [id number] patient care, completing clinical documentation, obtaining and/or [...] with any questions. Sincerely, Mariola Montes PA-C * Ga Shaw MA - 07/16/2024 2:40 PM EST Reason for WROTF Tablet to not get completed: Patient refused because declined all tablets documented in this encounterDayton Osteopathic Hospital02-05-2025 NoteHNO ID: [id number] Author: MARILOA MONTES PA-C Service: ? Author Type: Physician Wheel Presser Type: Progress Notes Filed: 07/16/2024 17:27 Note [...] with one or two (more content not included)...[facility]02-05-2025 NoteHNO ID: [id number] Author: GA SHAW MA Service: ? Author Type: Political Analyst Type: Progress Notes Filed: 07/16/2024 17:27 Note Text: Reason for WROTF Tablet to not get completed: Patient refused because declined all tabletsProtestant [facility]11-11-[facility] History of Present illness Narrative* Giovanni Gill, COMPONENT ASSEMBLER SUPERVISOR - 04/21/2024 8:40 AM EST Images from the original note were not included. Chief Complaint Patient presents with Parkinson's Disease Insomnia Carpal Tunnel Subjective Judith Khan, 79 y.o., female Patient presents today for a follow up to Parkinson's. She presents with a family member, Jaimee. She admits ED visit at [facility] recently for fall, states she was [...] CN II: Visual acuity is normal. Visual cadleron full to confrontation. CN III, IV, : [...] wrist extensors , wrist flexor 5/5 , mycologist strength 4/5. LUE Strength deltoid , biceps , triceps , wrist extensors , wrist flexor , mycologist strength 5/5. RLE Strength illopsoas, quadriceps, tibialis [...] knee reflex 2+. Dangelo's Sign negative. Coordination: Lzirbh-sz-ttey testing is normal Gait: Normal Review and [...] the brain with and without contrast at [facility] on 08/14/2023: No acute intracranial abnormality. No [...] the brain with and without contrast at [facility], on 05/15/23: no acute intracranial pathology or [...] acute abnormality to account for patient's symptoms. Oldlacunar infarctions within right basal ganglia. Age consistent atrophy and chronic small vessel ischemic changes. Assessment/Plan Diagnoses and all orders for this visit: Parkinson's disease, unspecified whether dyskinesia present, unspecified whether manifestations fluctuate (CMS/[facility]) It is my impression the patient has Parkinson's disease. Evidence of bradykinesia, mild rigidity onthe right, and unilateral rest tremor on right. [...] some improvement. She is now following with [facility] movement clinic and is now taking Sinemet CR along with amantadine with substantial improvement in her symptoms. PLAN: - Continue follow up with [facility] movement clinic as per their recommendations. [...] in the putamen bilaterally. Given the bilateral natureof the infarcts there is concern for a [...] on the right including pain and decreased mycologist strength. She admits to previous use of [...] 04/21/2024 10:10 AM EST documented in this encounterPike County Memorial [id number] History of Present illness Narrative* Mariola Montes PA-C - 02/22/2024 3:00 PM EDT [facility] - FOLLOW UP EVALUATION Md Rodrick Sams (Inactive) No address on file Dear Md Rodrick Sams (Inactive): I had the pleasure of seeing Ms. Khan for follow-up today. As you know she is a 79 year old right-handed female with a history of parkinson disease since 2015. She is seen with her daughter.. Subjective Previous Plan-01/14/2024 Visit: 'Jerking' AKA Dyskinesias - this got significantly worse when you increased from 1/2 tablet Sinemetthree times per day up to 1 full tablet Sinemet three times per day. Amantadine helped temporarily,but now your dyskinesias are bad again. You may STOP regular Sinemet You may START Sinemet controlled release (CR) on the same schedule Please CONTINUE amantadine 2x per day Parkinson's Disease - please keep up your physical therapy and occupational therapy exercises at home! Try to do some every day Dry mouth - please coal picker some OTC spray to help Please [...] that she is going to travel to [place] to see her friends, which prior to [...] the mouth, such as less spontaneous smiling, butlips not parted. Rigidity Neck 1-Slight. Rigidity only detected with activation maneuver. Rigidity Right Upper Extremity 0-Normal. No rigidity. Rigidity Left Upper Extremity 0-Normal. No rigidity. Rigidity Right Lower Extremity 0-Normal. No rigidity. Rigidity Left Lower Extremity 0-Normal. No rigidity. Finger Taps Right 2-Mild. a) 3 to 5 interruptions during tapping, b) mild slowing, c) the amplitudedecrements midway in the 10-tap sequence. Finger Taps [...] during the tapping movements or at least onelonger arrest (freeze) in ongoing movement, b) moderate [...] Parkinson's Disease since 2014. She presents to [facility] spring for care after many years of local care. Sinemet was reinitiated, as it had been discontinued prior to consult with our team. After changing Sinemet IR to Sinemet CR due to severe dyskinesias on 1 tablet TID, she notes remarkable improvement. UPDRS shows notable improvement (32%) and the patient is significantly less dyskinetic. States that her tremor is well- controlled and her dyskinesias are all but gone. Judith finds that she sleeps much better after this medication change and has improvement in her mood. She has beenstaying active with daily walks. She has decided [...] or around: 11/21/24 Level of service : 57425 (40-54 min). Time spent 41 min on the day of service, which included preparing to see the patient, xkui-kz-[id number] patient care, completing clinical documentation, obtaining and/or [...] with any questions. Sincerely, Mariola Montes PA-C * Ga Shaw MA - 02/22/2024 2:44 PM EDT Reason for WROTF Tablet to not get completed: Patient wishes to abort because of stress/struggling or is interrupted by their material combiner. documented in this encounterDayton Osteopathic Hospital09-13-2024 NoteHNO ID: [id number] Author: MARIOLA MONTES PA-C Service: ? Author Type: Physician Wheel Presser Type: Progress Notes Filed: 02/22/2024 16:46 Note [...] some every day Dry mouth - please coal picker some OTC spray to help Please [...] that she is going to travel to [place] to see her friends, which prior to [...] b) mild slowing, c) (more content not included)...[facility]09-13-2024 NoteHNO ID: [id number] Author: GA SHAW MA Service: ? Author Type: Political Analyst Type: Progress Notes Filed: 02/22/2024 16:46 Note Text: Reason for WROTF Tablet to not get completed: Patient wishes to abort because of stress/struggling or is interrupted by their material combiner.[facility]08-05-2024 Instructions* Patient Instructions* Mariola Montes PA-C - 01/14/2024 2:43 PM EDT It was a pleasure to see you today. We addressed the following diagnoses: Parkinson's disease with dyskinesia and fluctuating manifestations (hcc) (primary encounter diagnosis) My recommendations are as follows: 01/14/2024 Visit: 'Jerking' AKA Dyskinesias - this got significantly worse when you increased from 1/2 tablet Sinemetthree times per day up to 1 full tablet Sinemet three times per day. Amantadine helped temporarily,but now your dyskinesias are bad again. You may STOP regular Sinemet You may START Sinemet controlled release (CR) on the same schedule Please CONTINUE amantadine 2x per day Parkinson's Disease - please keep up your physical therapy and occupational therapy exercises at home! Try to do some every day Dry mouth - please coal picker some OTC spray to help Please [...] or you can send a message through Phantom. You can also now schedule and select appointments through Ph[employer]. Mariola Montes PA-C documented in this encounterDayton Osteopathic Hospital08-05-2024 History of Present illness Narrative* Mariola Montes PA-C - 01/14/2024 2:00 PM EDT [facility] - FOLLOW UP EVALUATION [...] directed. This was very helpful for her tremor.She now takes 1 tablet TID. While increasing [...] the amplitude decrements starting after the 1st igoh-noa-jhezc sequence. Arm Movements Right 1-Slight. a) the [...] during the tapping movements or at least onelonger arrest (freeze) in ongoing movement, b) moderate [...] Parkinson's Disease since 2014. She presents to [facility] spring for care after many years [...] worse when you increased from 1/2 tablet Sinemetthree times per day up to 1 full tablet Sinemet three times per day. Amantadine helped temporarily,but now your dyskinesias are bad again. You may STOP regular Sinemet You may START Sinemet controlled release (CR) on the same schedule Please CONTINUE amantadine 2x per day Parkinson's Disease - please keep up your physical therapy and occupational therapy exercises at home! Try to do some every day Dry mouth - please coal picker some OTC spray to help Please come back to see me February 21 at 3:00PM Interested in clinical research? Not currently Updated Movement Disorders Medication Schedule: Medications breakfast lunch bedtime ropinerole 0.25mg 1 azilect 1mg 1 sinemet CR 25/100mg 1 1 1 amantadine 100 mg 1 Return at or around: 02/14/24 Level of service : 82191 + 2 units 08453 ( > 55 min, [id number] for each 15 min > 40). Time spent 75 min on the day of service, which included preparing to see the patient, wjsi-nb-nzfh patient care, completing clinical documentation, obtaining and/or [...] Sincerely, Mariola Montes PA-C documented in this encounterDayton Osteopathic Hospital08-05-2024 NoteHNO ID: [id number] Author: MARIOLA MONTES PA-C Service: ? Author Type: Physician Wheel Presser Type: Progress Notes Filed: 01/14/2024 20:44 Note [...] c) the amplitude decrement (more content not included)...[facility]07-11-2024 NoteCardiology Clinic Note Chief Complaint: New patient [...] without perforation, COPD (chronic obstructive pulmonary disease) ([facility]), Emphysema lung ([facility]), Hiatal hernia (05/2023), Hyperlipidemia, Hypertension, Parkinson disease ([facility]), Renal stones, TIA (transient ischemic attack) (06/2023), [...] No rubs, No gallops. (more content not included)...[facility] Subjective Patient ID: Judith Khan is a 78 y.o. female who presents for Post-op (Judith is here today for a post op visit for an incisional hernia, [facility] HPI 78 years [...] the past 36 hour(s)). No follow-ups on file.[facility]05-30-20[facility] Note* Addendum Note - David Valente MD - 11/08/2023 3:27 PM EDTAddended by: DAVID VALENTE on: 11/08/2023 03:27 PM Modules accepted: Orders [facility]05-30-2024 Miscellaneous Notes* Addendum Note - David Valente MD - 11/08/2023 3:27 PM EDTAddended by: DAVID VALENTE on: 11/08/2023 03:27 PM Modules accepted: Orders * Addendum Note - Dulce Melgar RN - 11/08/2023 2:48 PM EDTAddended by: DULCE MELGAR on: 11/08/2023 02:48 PM Modules accepted: Orders * Telephone Encounter - Dulce Melgar RN - 11/08/2023 2:44 PM EDT Spoke with Jaimee. Instructed her to increase the Amantadine to 100mg BID (to be taken with the first 2 daily doses of Sinemet). Jaimee verbalized understanding and is in agreement with POC. * Telephone Encounter - David Valente MD - 11/08/2023 2:34 PM EDT Ok, if no side effects can she please increase to 100mg in morning and 100mg at noon? I will updatethe prescription. * Telephone Encounter - Dulce Melgar RN - 11/08/2023 12:53 PM EDT Spoke with Jaimee. Reports that pt is experiencing right sided dyskinesia (arm/shoulder). Pt has been taking 100mg Amantadine daily. She initially had relief from the dyskinesia but now they have returned. * Telephone Encounter - CamachoLeonora Huntley - 11/08/2023 11:52 AM EDT Jaimee (pt' granddaughter) called to report this week pt's back to experiencing jerking movement. Pt started Amantadine 100 mg week of October 24 and first week medication helped dyskinesia. [phone] 09/13/23 FUJose w/Dr. Valente documented in this encounterDayton Osteopathic Hospital05-30-2024 Note* Addendum Note - Dulce Melgar RN - 11/08/2023 2:48 PM EDTAddended by: DULCE MELGAR on: 11/08/2023 02:48 PM Modules accepted: Orders [facility]05-30-2024 Telephone encounter Note* Telephone Encounter - Dulce Melgar RN - 11/08/2023 2:44 PM EDT Spoke with Jaimee. Instructed her to increase the Amantadine to 100mg BID (to be taken with the first 2 daily doses of Sinemet). Jaimee verbalized understanding and is in agreement with POC. [facility]05-30-2024 Telephone encounter Note* Telephone Encounter - David Valente MD - 11/08/2023 2:34 PM EDT Ok, if no side effects can she please increase to 100mg in morning and 100mg at noon? I will updatethe prescription. [facility]05-30-2024 Telephone encounter Note* Telephone Encounter - Dulce Melgar RN - 11/08/2023 12:53 PM EDT Spoke with Jaimee. Reports that pt is experiencing right sided dyskinesia (arm/shoulder). Pt has been taking 100mg Amantadine daily. She initially had relief from the dyskinesia but now they have returned. [facility]05-30-2024 Telephone encounter Note* Telephone Encounter - CamachoLeonora Huntley - 11/08/2023 11:52 AM EDT Jaimee (pt' granddaughter) called to report this week pt's back to experiencing jerking movement. Pt started Amantadine 100 mg week of October 24 and first week medication helped dyskinesia. [phone] 09/13/23 DARRYL w/Dr. Valente [facility]05-08-2024 NoteHNO ID: [id number] Author: NEELIMA ORTEGA APRN.GLUER MACHINE SETUP OPERATOR Service: ? Author Type: Nurse Practitioner Type: [...] 100 mg 1 Level of service : 68404 (20-29 min). Time spent 25 min on [...] call with any questions. Sincerely, Neelima Ortega APRN.[facility]05-08-2024 Note* Addendum Note - Neelima Ortega APRN.CNP - 10/17/2023 5:29 PM EDTAddended by: NEELIMA ORTEGA on: 10/17/2023 05:29 PM Modules accepted: Orders [facility]05-08-2024 History of Present illness Narrative* Neelima Ortega APRN.CNP - 10/17/2023 5:29 PM EDT [facility] - FOLLOW UP EVALUATION [...] by mouth three times a day for 7days, THEN 1 tablet three times a day. [...] 100 mg 1 Level of service : 30385 (20-29 min). Time spent 25 min on [...] call with any questions. Sincerely, Neelima Ortega APRN.GLUER MACHINE SETUP OPERATOR documented in this encounterDayton Osteopathic Hospital05-08-2024 Miscellaneous Notes* Addendum Note - Neelima Ortega APRN.CNP - 10/17/2023 5:29 PM EDTAddended by: NEELIMA ORTEGA on: 10/17/2023 05:29 PM Modules accepted: Orders * Telephone Encounter - David Valente MD - 10/17/2023 9:43 AM EDT Dear Neelima, If she lives alone, I'd prefer the zonisamide. If she lives with someone who can monitor for the possible cognitive side effects of amantadine, I'd prefer amantadine. Thanks! -David * Telephone Encounter - Mila Jin - 10/09/2023 11:39 AM EDT Patients daughter calling to say there was medication discussed during last OV for dyskinesia. Theywant to know what it was and if it can be prescribed because she's still having this issue. Kathie Calvillo (Daughter) [phone] (Home Phone) documented in this encounterDayton Osteopathic Hospital05-08-2024 Telephone encounter Note * Telephone Encounter - Dulce Melgar RN - 10/17/2023 11:15 AM EDT Spoke with pt. Informed her that the MRI of the spine showed arthritis-related degenerative changesto the spine, but not serious. She is agreeable to discussing in more detail at next office visit. [facility]05-08-2024 Miscellaneous Notes* Telephone Encounter - Dulce Melgar RN - 10/17/2023 11:15 AM EDT Spoke with pt. Informed her that the MRI of the spine showed arthritis-related degenerative changesto the spine, but not serious. She is agreeable to discussing in more detail at next office visit. * Telephone Encounter - David Valente MD - 10/17/2023 10:25 AM EDT Dear Team, Can we please let her know that the MRI of the spine showed arthritis-related degenerative changes to the spine, but not serious. We can discuss at her next in person visit and show her the images then. Yossi, -David * Telephone Encounter - Gabbi Lu - 10/17/2023 10:15 AM EDT Judith phoned for results of MRI done on 10/06. She does not use [facility] and would like a return call. [phone] documented in this encounterDayton Osteopathic Hospital05-08-2024 Telephone encounter Note * Telephone Encounter - David Valente MD - 10/17/2023 10:25 AM EDT Dear Team, Can we please let her know that the MRI of the spine showed arthritis-related degenerative changes to the spine, but not serious. We can discuss at her next in person visit and show her the images then. Thanks, -David [facility]05-08-2024 Telephone encounter Note* Telephone Encounter - Gabbi Lu - 10/17/2023 10:15 AM EDT Judith phoned for results of MRI done on 10/06. She does not use [facility] and would like a return call. [phone] [facility]05-08-2024 Telephone encounter Note* Telephone Encounter - David Valente MD - 10/17/2023 9:43 AM EDT Dear Neelima, If she lives alone, I'd prefer the zonisamide. If she lives with someone who can monitor for the possible cognitive side effects of amantadine, I'd prefer amantadine. Thanks! -David [facility]04-30-2024 Telephone encounter Note* Telephone Encounter - Mila Jin - 10/09/2023 11:39 AM EDT Patients daughter calling to say there was medication discussed during last OV for dyskinesia. Theywant to know what it was and if it can be prescribed because she's still having this issue. Kathie Calvillo (Daughter) [phone] (Home Phone) [facility]04-28-2024 History of Present illness Narrative* Mya Jennings RT(R) - 10/07/2023 11:40 AM EDT Radiology Service Progress Note PATIENT NAME: Judith Khan DATE OF SERVICE: October 07, 2023 TIME: 5:53 PM PATIENT IDENTITY VERIFICATION COMPLETED USING TWO (2) IDENTIFIERS: Name and Date of confirmedby patient verbally and Name and Date of confirmed by identification band. FALL SCREENING: Has the patient had 2 falls in the last year or 1 fall with injury or currently using an Ambulatory Assistive Device (Walker, Cane, Wheelchair, Crutches, etc.)? No PATIENT GENDER DATA: Female. status: : No status: NO. PATIENT RELEVANT IMPLANT DATA REVIEWED: Yes PATIENT PRESENTS WITH AN IMPLANTABLE OR ATTACHED SPACE AND MISSILE OPERATIONS SPACELIFT: No RADIOLOGY DEPARTMENT: MR; Exam(s) Completed: Spine: Cervical spine, Thoracic spine, and Lumbar spine PERIPHERAL IV DATA: Not applicable SIGNED BY: RT Alec(R) October 07, 2023 5:53 PM documented in this encounterDayton Osteopathic Hospital04-28-2024 NoteHNO ID: [id number] Author: MYA JENNINGS RT(R) Service: Radiology Author [...] PATIENT PRESENTS WITH AN IMPLANTABLE OR ATTACHED SPACE AND MISSILE OPERATIONS SPACELIFT: No RADIOLOGY DEPARTMENT: MR; Exam(s) Completed: Spine: Cervical spine, Thoracic spine, and Lumbar spine PERIPHERAL IV DATA: Not applicable SIGNED BY: RT Alec(R) October 07, 2023 5:53 [facility]04-17-2024 NoteSubjective Patient ID: Judith Khan is a 78 [...] the past 36 hour(s)). No follow-ups on file.[facility]04-17-2024 Note Subjective Patient ID: Judith Khan is [...] seen for follow up, unless patient desires Ellie Simona, MS3 [facility]24 Note09/18/23 1216 Home Oxygen Therapy Evaluation Pulse Oximetry on room air at Rest 88 Pulse Ox on O2 with nasal cannula while at rest 93 (on 3lpm via nasal cannula) Pulse Ox on O2 with nasal cannula while walking 92 (on 3lpm via nasal cannula while walking) Patient Qualification for home oxygen Qualifies $ Pulse Oximetry Multiple (home oxygen eval)[facility]04-09-2024 Note Attestation signed by Verena Sheehan MD at 09/20/2023 10:36 AM Attending Physician Statement I have discussed the case, including pertinent history and exam findings with Dr. Serrano, medical or surgical instrument maker and have personally seen the patient. I agree with the assessment, plan and orders as documented. [phone] pager [phone] phone [facility] General Surgery DAILY PROGRESS NOTE Subjective [...] hypertrophy with repolarization abnormality ( Sokolow-Miguel , Sylvester product ) Abnormal ECG No previous ECGs [...] Resident, PGY-3 I can be reached via [facility] 6a-6[facility]04-09-2024 NotePhysical Therapy Physical Therapy Evaluation Patient Name: Judith [...] Hiatal hernia 05/2023 Hyperlipidemia Hypertension Parkinson disease ([facility]) Renal stones TIA (transient ischemic attack) 06/2023 [...] Level of Function Prior Function Level of [place]: Independent with ADLs and functional transfers, Needs assistance with homemaking Prior Functional Mobility: Independent with rolling walker Receives Help From: Family ADL Assistance: Independent (assist for socks) Homemaking Assistance: Needs assistance Driving: Total Prior Function Comments: Currently getting [facility] therapies in [place]: DOUGH MIXER/OT/PT Vision Basic Assessment Vision - Basic Assessment [...] Assistance: Distant supervision Static (more content not included)...[facility] 09-18-2023 NoteOccupational Therapy Occupational Therapy Evaluation Patient Name: Judith [...] without perforation COPD (chronic obstructive pulmonary disease) ([facility]) Emphysema lung ([facility]) HISTORY OF Hiatal hernia 05/2023 Hyperlipidemia Hypertension Parkinson disease ([facility]) Renal stones TIA (transient ischemic attack) 06/2023 [...] Level of Function Prior Function Level of [place]: Independent with ADLs and functional transfers, Needs [...] Eating meals?: None (Independent) Total Score OT [facility]: 21 Assessment/Plan OT Assessment OT Impairments: Decreased [...] Occupational Therapy) Active Probl (more content not included)...[facility] 09-18-2023 Note09/18/23 1001 Admission Assessment Questions Verify insurance with [...] Discharge? No Does the patient have a counter caser assigned to them through their insurance? No [...] able to send link and activate MyChart? Yes[facility] [id number] [facility] DAILY PROGRESS NOTE Subjective Overnight [...] at this time. Objective Vitals: Vitals: 09/18/23 040 BP: 135/65 Pulse: 110 Resp: 14 Temp: [...] hypertrophy with repolarization abnormality ( Sokolow-Miguel , Sylvester product ) Abnormal ECG No previous ECGs [...] David Conner MS3 General Surgery Resident, PGY- [phone] I can be reached via Nitch 6a-6[facility]04[facility]08[facility] NotePatient: Judith Khan Procedure Summary Date: 09/17/23 Room / Location: [facility] OPERATING ROOM 13 / [facility] Operating Room Anesthesia Start: 9 Anesthesia Stop: 1436 Procedure: DAVINCI INCISIONAL HERNIA [...] Patient slow to emerge. No notable events documented.[facility]04-08-2024 Note Patient: Judith Khan Procedure Summary Date: 09/17/23 Room / Location: [facility] OPERATING ROOM 13 / [facility] Operating Room Anesthesia Start: 1039 Anesthesia Stop: [...] direct observation Transport: uneventful [facility] condition [facility] Note Airway Date/Time: 09/17/2023 10:53 AM Urgency: elective General Information and Staff Patient location during procedure: OR Anesthesiologist: Jon Sunshine MD Resident/CORRESPONDENCE REVIEW CLERK/CAA: [id number] Patton Performed: resident/CORRESPONDENCE REVIEW CLERK/CAA Indications and Patient Condition Indications for airway [...] approach: 1 Number of other approaches attempted: 0UnThe [facility] 09-17-2023 NotePatient: Judith Khan Procedure Information Date/Time: 09/17/23 1100 Procedure: REPAIR, HERNIA, INCISIONAL, DAVINCI - DaVinci Location: [facility] OPERATING ROOM 13 / [facility] Operating Room Surgeons: Verena Sheehan MD Relevant [...] products. Plan discussed with CAA. Additional Equipment RequestsMemorial [facility] System04-04-2024 Instructions* Patient Instructions* David Valente MD - 09/13/2023 10:41 AM [...] 25/100, immediate release. After a week increase itto 1 tablet three times/day. Take at 7am, [...] > left sensory loss. Continue PT, OT, DOUGH MIXER Follow up in 1 month with [facility]. Patient's perception of importance for healthcare provider to let them know of research trials for which they may be eligible? Not at all important Return at or around: 10/13/23 If there are any concerns before your next visit, please call or you can send a message through Phantom. You can also now schedule and select appointments through Phantom. David Valente MD documented [facility] History of Present illness Narrative* David Valente MD - 09/13/2023 9:30 AM EDT [facility] - NEW PATIENT EVALUATION [...] with mod chronic microvasuclar ischemic changes , lacunarinfarcts of both putamen, and possible additional infarct [...] Row Office Visit from 09/13/2023 in [facility] T Score 39.8 Global [...] by mouth three times a day for 7days, THEN 1 tablet three times a day. [...] hysterectomy hx; extensive foot surgery; and cardiac cath(08/02/2000). Social History Tobacco Use Smoking status: Former [...] no acute distress, good nutritional status, normal development,well-kept Extremities: 2+ pitting edema of feet. Heart: [...] Left visual acuity: Counts fingers. Right normal visualfield. Left normal visual field. CN III, IV, [...] Suprapatellar present. Crossed adductor absent. Coordination Right: Cwwc-pj-ucfe normal.Left: Ombm-hy-wnqg normal. See UPDRS. Gait Casual gait: Hesitant [...] amplitude decrements near the end of the 10taps. Finger Taps Left 3-Moderate. a) more than [...] freezing. Dyskinesias may be problem, she may needamantadine, or, slightly lower dose sinemet + zonisamide, [...] 25/100, immediate release. After a week increase itto 1 tablet three times/day. At same time, [...] Spine, concern for right sided lumbar radiculopathy [facility] (MRIs ordered at [facility], with radiology to administer anxiolytics) Neuropathy labwork In future, consider EMG right leg to work up right > left sensory loss. Continue PT, OT, DOUGH MIXER Follow up in 1 month with [facility]. Patient's perception of importance for healthcare provider to let them know of research trials for which they may be eligible? Not at all important Updated Parkinson's Medication Schedule: Medications breakfast lunch bedtime ropinerole 0.25mg 1 azilect 1mg 1 sinemet 25/100mg 1 1 1 Level of service : 80687 + 1 units 18253 ( > 75 min, [id number] for each 15 min > 60 min). Time spent 80 min on the day of service, which included preparing to see the patient, fsrk-bi-rxkq patient care, completing clinical documentation, obtaining and/or [...] Sincerely, David Valente MD documented in this encounterDayton [facility]04-04-2024 NoteHNO ID: [id number] Author: DAVID VALENTE MD Service: ? Author [...] Row Office Visit from 09/13/2023 in [facility] T Score 39.8 Global [...] and 5pm.. rOPINIRole (REQUIP (more content not included)...[facility] 09-12-[address] Aguila MACIAS to refill the Pantoprazole.[facility]03-18-2024 NotePre op Cardiovascular risk stratification RCRI: 1 points Class II Risk 6.0 % 30-day risk of , NV, or cardiac arrest From a cardiology perspective pt may proceed with planned hernia surgery, she is low risk for a moderate- high risk abdominal surgery. Please monitor hemodynamics and prevent any major fluid shifts please. Mila ANTONIO IN Cardiology Available 7a-5pm via PeptiVir Chat Pager [phone] 05/2022 Abnormal stress with EKG changes but no perfusion defects as per report. No cardiac complaints TTE 06/01/23 [facility] NoteSubjective Patient ID: Judith Khan is a 78 [...] and without perforation [K25.7] Procedures EGD (ESOPHAGOGASTRODUODENOSCOPY) 34543 - [place] ESOPHAGOGASTRODUODENOSCOPY [facility]AGNOSTIC Surgeons * Verena Sheehan - Primary Procedure Summary Anesthesia: Monitor Anesthesia Care ASA: III Estimated Blood Loss: Minimal Total IV Fluids: 500 mL Drains: * None in log * Staff: Leather Grader: Jian Kat RN Scrub Person: Eva Zambrano [...] NOTE Patient: Judith Khan : 1945 Facility: [facility] Referring/PCP: Rodrick Sams MD Procedure: Esophagogastroduodenoscopy [...] 1. -Follow up with me. 2. -PPIs [phone] pager [phone] Assessment/Plan Incisional hernia Gastric ulcer Robotic incisional hernia repair with mesh Cardiac clearance PPIs No diagnosis found. No orders of the defined types were placed in this encounter. No results found for this or any previous visit (from the past 36 hour(s)). No follow-ups on file.[facility]03-04-2024 NotePatient: Judith Khan Procedure Summary Date: 08/13/23 Room / Location: [facility] OPERATING ROOM 01 / [facility] Operating Room Anesthesia Start: 731 Anesthesia Stop: [...] PACU per anesthesia protocol. No notable events documented.[facility]03-04-2024 Note [facility] General Surgery HISTORY AND PHYSICAL Reason for Admission: EGD History of Present Illness: Judith Khan is a 78 y.o. female with a hiatal hernia. Here today for elective EGD. No changes since prior exam no new acute concerns. Past Medical History: Diagnosis Date COPD (chronic obstructive pulmonary disease) ([facility]) Emphysema lung ([facility]) HISTORY OF Hiatal hernia 05/2023 Hyperlipidemia Hypertension [...] PROTIME Imaging: XR chest 1 view Narrative: [facility] Department of Radiology [address] [place] [address] Patient Name: JUDITH KHAN : 1945 Sex: F Age: Race: White^White Pt. Location: [id number] Patient Status: I Ordered Date: 08/15/2017 7:05:00 AM Completed Date: 08/15/2017 07:54 AM Requesting Provider: JOSH PALMER Attending Provider: ALEXANDER OLSON Report Copy To: Signs & Symptoms: O2 Desaturation History: Patient history not available Comments: R/O Effusion Exam: PORTABLE CHEST 1 VIEW PORTABLE CHEST 1 VIEW 08/15/2017 7:54 AM EST SIGNS AND SYMPTOMS: O2 Desaturation TECHNOLOGIST COMMENTS: SOB Q (more content not included)...[facility]03-04-2024 NotePatient: Judith Khan Procedure Information Date/Time: 08/13/23 0730 Procedure: EGD (ESOPHAGOGASTRODUODENOSCOPY) Location: [facility] OPERATING ROOM 01 / [facility] Operating Room Surgeons: Verena Sheehan MD Relevant [...] discussed with attending and resident. 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 Do not wear perfume, make-up, nail belarusian, or lotions on the day of your [...] need to make any changes, please call [phone]. Notify your surgeon if you develop any illness such as a cold, cough, fever, sore throat or vomiting between now and your surgery. Thank you for entrusting us with your care. [facility] Surgical Services TeamUnThe Jewish Hospital02-27-2024 Note Subjective Patient ID: Judith Khan is [...] the past 36 hour(s)). No follow-ups on file.[facility]02-05-2024 Hospital Discharge instructions Patient Education 07/16/2023 15:44:31 [...] days a week or as told byyour health care provider. This helps build muscle strength. Consider working with a physical therapist or sports medicine trainer who can develop an exercise plan to help you gain muscle strength. General instructions Take apeu-sgm-frxukjo and prescription medicines only as told by [...] provider. Document Revised: 04/30/2022 Document Reviewed: 04/30/2022 Curbside Patient Education 2022 Tendril. Follow Up Care 07/16/2023 11:34:57 With:Rodrick Sams Address: [address] [place] [id number] Business (1) When:07/19/2023 15:32:04 [facility]02-05-2024 Evaluation + Plan noteExtracted from: Title:ED Note Author:Leighton Fernandes PA-C te:07/16/23 Weakness (R53.1: Weakness) Diagnostic Tests Pending * Urine Culture 07/16/23 [facility]01-26-2024 NoteHypertension is stable and well controlled Continue all meds as prescribed- norvasc, lisinopril- hydrochlorothiazide, metoprololMemorial Health System01-26-2024 NoteHiatal hernia with compression on Lt [facility] noted on TTE Referral to general surgery orderedUnThe Jewish Hospital01-26-2024 NotePatient here for 6 mo follow up fatigue, hypertension, and hyperlipidemia. Metoprolol was put on hold at last apt in Jan 2023 to see if fatigue improved. A few weeks later she was admitted to [facility] for chest pain. Had another echo in May 2023, which showed hiatal hernia. Daughter states was admitted to [facility] recently for TIA symptoms and daughter states she was treated for UTI. She's still not taking metoprolol and feels less tired without it. She denies chest pain, SOB, lightheadedness/syncope, and palpitations. Review of Systems Constitutional: Positive for malaise/fatigue (improving). Musculoskeletal: Positive for arthritis, back pain and joint pain. Neurological: Positive for tremors. All other systems reviewed and are negative.[facility] 07-06-2023 NoteUTP CARDIOLOGY PROGRESS NOTE HPI: Judith Khan is a 78 y.o. female here for review echocardiogram Patient here for 6 mo follow up fatigue, hypertension, and hyperlipidemia. Metoprolol was put on hold at last apt in Jan 2023 to see if fatigue improved. A few weeks later she was admitted to [facility] for chest pain. Had another echo in May 2023, which showed hiatal hernia. Daughter states was admitted to [facility] recently for TIA symptoms and daughter [...] Plt Count 355 (150-450) 10^3/uL Emergency Department [id number] [facility] 5 Patient name: JUDITH KHAN MPV 11.2 (9.5-13.5) fL Neut % (Auto) 22.9 L (43.0-75.0) % Lymph % (Auto) 55.8 (20.5-60.0) % Aurora % (Auto) 13.5 H (1.7-12.0) % Eos % (Auto) 6.4 (0.9-7.0) % Baso % (Auto) 1.3 (0.2-2.0) % Neut # (Auto) 1.9 (1.4-6.5) 10^3/uL Lymph # (Auto) 4.6 H (1.2-3.8) 10^3/uL Aurora # (Auto) 1.1 H (0.3-0.8) 10^3/uL Eos [...] Amer) >60 (>=60) Est (more content not included)...[facility]01-13[facility]24 Hospital Discharge instructions Patient Education 06/23/2023 16:31:59 Weakness, Xyeh-og-Eagl Weakness Weakness is a lack of strength. [...] about working with a physical therapist or sports medicine trainer to help you get stronger. General instructions Take cliq-fsp-mvizhhg and prescription medicines only as told by [...] provider. Document Revised: 04/30/2022 Document Reviewed: 04/30/2022 Curbside Patient Education 2022 Tendril. 06/23/2023 16:31:55 Urinary Tract Infection, Adult Urinary [...] Treatment for this condition includes: Antibiotic medicine. Xtko-ygr-tfgcgkj medicines to treat discomfort. Drinking enough water [...] Follow these instructions at home: Medicines Take yish-sas-hoezekg and prescription medicines only as told by [...] provider. Document Revised: 01/07/2021 Document Reviewed: 01/07/2021 Curbside Patient Education 2022 Tendril. Follow Up Care 06/23/2023 01:35:45 With:Ramiro Louise MD, NEU Address: [place] [id number]- When:1 to 2 weeks [facility]01-13-2024 Evaluation + Plan noteExtracted from: Title:Consult Note [...] but reportedly she has MRI images in [place] within the past few months that did [...] just had an MRI in May at [facility]. Consult Neurology PT Eval ordered 2. [...] Blood Culture Charcoal CBC w/ Auto Diff [place] Stroke Scale Communication Order Physician to Nursing Continuous Pulse Oximetry CT Head or Brain w/o Contrast ECG 12 Lead Adult ED Cardiac Monitoring ED Physician consult Hospitalist for continued care eGFR Hepatic Function Panel Lactic Acid Magnesium Level NPO Diet Oxygen Therapy PT & PTT Rapid COVID Antigen ([facility]) Routine Capillary Glucose POC Saline Lock Insert Stroke Quality Measures Troponin 0 Hr. Troponin 3 Hr. Troponin 6 Hr. Troponin 9 Hr. TSH With T4fr Reflex UA With Cult Reflex Urine Culture Vital Signs XR Chest Single View Diagnostic Tests Pending * Blood Culture Charcoal 06/23/23 * Blood Culture Charcoal 06/23/23 * Urine Culture 06/23/23 [facility]08-04-2023 NoteContinue statinMemorial Health System08-04-2023 NoteHypertension is elevated in office most likely r/t white coat syndrome States b/p at home is typically 120's/70'[facility]-12[facility] NoteWill have pt hold metoprolol and see if her fatigue improves Continue to monitor b/p at home and call office for b/p increase greater than 130/80 or for any concerns.[facility]08-04-2023 Note Patient here for 6 mo follow [...] tremors. All other systems reviewed and are negative.[facility] 01-12-2023 NoteUTP CARDIOLOGY PROGRESS NOTE HPI: Judith [...] statin RTC 3-6 months or earlier if neededMemorial Health SystemEvaluation noteNo assessment information availableFulton County Health [facility] Ctr Work Phone: Evaluation note* Diagnosis Hyperreflexia- [...] changes Memory loss [facility] Diagnosis Spinal stenosis of cervical region Spinal stenosis in cervical region [facility] Diagnosis Abnormal posture [facility] Diagnosis Spinal stenosis of lumbar region with neurogenic claudication Spinal stenosis, lumbar region, with neurogenic claudication [facility] [...] fluctuating manifestations (HCC) [facility] Diagnosis Parkinson's disease, unspecified whether dyskinesia [...] of cerebral infarction documented in this encounter [facility]* Diagnosis Parkinson's disease, unspecified whether dyskinesia present, unspecified whether manifestations fluctuate (CMS/HCC)- Primary RLS (restless legs syndrome) Restless legs syndrome (RLS) Cerebral infarction, chronic Transient ischemic attack (TIA), and cerebral infarction without residual deficits Other chronic pain Carpal tunnel syndrome of right wrist documented in this encounter [facility] HealthcareEvaluation note* Diagnosis Parkinson's disease with dyskinesia and fluctuating manifestations (HCC)- Primary Anxiety disorder due to known physiological condition Anxiety state, unspecified Hypophonia with hoarseness [facility] Diagnosis Right wrist pain- Primary Pain in joint, forearm Closed Colles' fracture of right radius, initial encounter Other closed fracture of distal end of right ulna, initial encounter Parkinson's disease with dyskinesia, unspecified whether manifestations fluctuate (CMS/HCC) Underweight documented in this encounter [facility] HealthcareEvaluation note* Diagnosis Right wrist pain- Primary Pain in joint, forearm Closed Colles' fracture of right radius with routine healing Other closed fracture of distal end of right ulna with routine healing, subsequent encounter documented in this encounter [facility] HealthcareHospital course Narrative No data available for this section [facility] No data available for this section [facility] Summary Purpose Family History No Family History Records FoundNo Family History Records FoundNo Family History Records Found No data available for this section No Family History Records Found No data available [...] Found No data available for this section Advance Directives Advance Directive Response Recorded Date/ Time Advance Directives No November 12 1:56pm Chief Complaint and Reason for Visit Chief Complaint G24.9 R27.0 Chief Complaint Admit Date Unknown July 24, 2024 2:21pm Chief Complaint Admit Date Unknown July 24, 2024 2:21pm Unknown August 06, 2024 12:15pm Reason for Referral Specialty Diagnoses / Procedures Referred By Contac t Referred To Contact Diagnoses Parkinson's disease with dyskinesia and fluctuating manifestations (HCC) Procedures PROVIDER ORDERED FOLLOW UP OFFICE/OUTPATIENT CARE ONE AT [facility] 60 MINUTES Mariola Montes PA-C [address] [place] [address] Referral ID Status Reason Start Date Expiration Date Visits Requested Visits Authorized [id number] Authorized PCP Requested Referral 02/14/2024 01/13/2025 1 1 Specialty Diagnoses / Procedures Referred By Contac t Referred To Contact Diagnoses Parkinson's disease, unspecified whether dyskinesia present, unspecified whether manifestations fluctuate (HCC) Procedures PROVIDER ORDERED FOLLOW UP OFFICE/OUTPATIENT CARE ONE AT [facility] 60 MINUTES David Valente MD [address] [place] [address] Referral ID Status Reason Start Date Expiration Date Visits Requested Visits Authorized [id number] Authorized PCP Requested Referral 10/13/2023 09/12/2024 1 1 Specialty Diagnoses / Procedures Referred By Contac t Referred To Contact MR IMAGING Diagnoses Spinal stenosis of lumbar region with neurogenic claudication Procedures MRI LUMBAR SPINE WO IVCON MRI SPINAL CANAL LUMBAR W/O CONTRAST MATERIAL David Valente MD [address] [place] [id number] Mr Imaging [place] [address] Referral ID Status Reason Start Date Expiration Date Visits Requested Visits Authorized [id number] Authorized Auto-Generat ed Referral 09/13/2023 10/12/2024 1 1 Specialty Diagnoses / Procedures Referred By Contac t Referred To Contact MR IMAGING Diagnoses Abnormal posture Procedures MRI THORACIC SPINE WO IVCON MRI SPINAL CANAL THORACIC W/O CONTRAST David Andrea MD [address] [place] [address] Mr Imaging [facility] Referral ID Status Reason Start Date Expiration Date Visits Requested Visits Authorized [id number] Authorized Auto-Generat ed Referral 09/13/2023 10/12/2024 1 1 Specialty Diagnoses / Procedures Referred By Contac t Referred To Contact MR IMAGING Diagnoses Spinal stenosis of cervical region Procedures MRI CERVICAL SPINE WO IVCON MRI SPINAL CANAL CERVICAL W/O CONTRAST David Andrea MD [address] [place] [address] Mr Imaging [facility] Referral ID Status Reason Start Date Expiration Date Visits Requested Visits Authorized [id number] Authorized Auto-Generat ed Referral 09/13/2023 10/12/2024 1 1 Additional Source Comments INFORMATION SOURCE (unrecogn ized section and content) DATE CREATED AUTHOR 11/30/2017 [facility] DATE CREATED AUTHOR AUTHOR'S ORGANIZ ATION 10/13/2022 [facility] DATE CREATED AUTHOR AUTHOR'S ORGANIZ ATION 10/19/2023 [facility] DATE CREATED AUTHOR AUTHOR'S ORGANIZ ATION 12/02/2023 [facility] DATE CREATED AUTHOR AUTHOR'S ORGANIZ ATION 12/26/2023 [facility] DATE CREATED AUTHOR AUTHOR'S ORGANIZ ATION 07/28/2024 [facility] DATE CREATED AUTHOR AUTHOR'S ORGANIZ ATION 07/29/2024 [facility] DATE CREATED AUTHOR AUTHOR'S ORGANIZ ATION 08/04/2024 [facility] DATE CREATED AUTHOR AUTHOR'S ORGANIZ ATION 08/06/2024 [facility] DATE CREATED AUTHOR AUTHOR'S ORGANIZ ATION 08/07/2024 [facility] DATE CREATED AUTHOR AUTHOR'S ORGANIZ ATION 08/10/2024 [facility] DATE CREATED AUTHOR AUTHOR'S ORGANIZ ATION 08/10/2024 [facility] Care Teams (unrecognized sec tion and content) Personnel Name: Rodrick Sams MD Address: Address: [address] [place] [address] Name: Mila Mao Name: Elian Quigley LPN Team Status: Active Member Role Status Dates Rodrick Sams MD Primary Care Provider Active Team Status: Inactive Member Role Status Dates Rodrick Sams MD Primary Care Provider Active Giovanni Gill COMPONENT ASSEMBLER SUPERVISOR-C Attending Provider Active Transfer And Pumphouse Operator Chief Relationship Specialty Start Date End Date Rodrick Sams Md PCP - General Family Medicine 03/23/20 Rodrick Sams MD Physician Family Medicine 02/20/20 Transfer And Pumphouse Operator Chief Relationship Specialty Start Date End Date Rodrick Sams Md PCP - General Family Medicine 03/23/20 Rodrick Sams MD Physician Family Medicine 02/20/20 Transfer And Pumphouse Operator Chief Relationship Specialty Start Date End Date Rodrick Sams Md PCP - General Family Medicine 03/23/20 Rodrick Sams MD Physician Family Medicine 02/20/20 Transfer And Pumphouse Operator Chief Relationship Specialty Start Date End Date Rodrick Sams Md PCP - General Family Medicine 03/23/20 Rodrick Sams MD Physician Family Medicine 02/20/20 Transfer And Pumphouse Operator Chief Relationship Specialty Start Date End Date Rodrick Sams Md PCP - General Family Medicine 03/23/20 Rodrick Sams MD Physician Family Medicine 02/20/20 Transfer And Pumphouse Operator Chief Relationship Specialty Start Date End Date Rodrick Sams Md PCP - General Family Medicine 03/23/20 Rodrick Sams MD Physician Family Medicine 02/20/20 Transfer And Pumphouse Operator Chief Relationship Specialty Start Date End Date Rodrick Sams Md PCP - General Family Medicine 03/23/20 Rodrick Sams MD Physician Family Medicine 02/20/20 Transfer And Pumphouse Operator Chief Relationship Specialty Start Date End Date Rodrick Sams Md PCP - General Family Medicine 03/23/20 Rodrick Sams MD Physician Family Medicine 02/20/20 Transfer And Pumphouse Operator Chief Relationship Specialty Start Date End Date Rodrick Sams Md PCP - General Family Medicine 03/23/20 Rodrick Sams MD Physician Family Medicine 02/20/20 Transfer And Pumphouse Operator Chief Relationship Specialty Start Date End Date Rodrick Sams Md PCP - General Family Medicine 03/23/20 Rodrick Sams MD Physician Family Medicine 02/20/20 Transfer And Pumphouse Operator Chief Relationship Specialty Start Date End Date Rodrick Sams Md PCP - General Family Medicine 03/23/20 Rodrick Sams MD Physician Family Medicine 02/20/20 Transfer And Pumphouse Operator Chief Relationship Specialty Start Date End Date Rodrick Sams MD [address] [facility] [place] [address] PCP - General Family Medicine 08/15/23 Transfer And Pumphouse Operator Chief Relationship Specialty Start Date End Date Rodrick Sams MD [address] [facility] [place] [address] PCP - General Family Medicine 08/15/23 Transfer And Pumphouse Operator Chief Relationship Specialty Start Date End Date Rodrick Sams MD [address] [facility] [place] [address] PCP - General Family Medicine 08/15/23 Transfer And Pumphouse Operator Chief Relationship Specialty Start Date End Date Rodrick Sams Md PCP - General Family Medicine 03/23/20 Rodrick Sams MD Physician Family Medicine 02/20/20 Team Status: Inactive Member Role Status Dates Rodrick Sams MD Attending Provider Active Sta rt: July 24, 2024 End: July 24, 2024 Transfer And Pumphouse Operator Chief Relationship Specialty Start Date End Date Rodrick Sams MD [address] [facility] [place] [address] PCP - General Family Medicine 08/15/23 Transfer And Pumphouse Operator Chief Relationship Specialty Start Date End Date Rodrick Sams Md PCP - General Family Medicine 03/23/20 Rodrick Sams MD Physician Family Medicine 02/20/20 Transfer And Pumphouse Operator Chief Relationship Specialty Start Date End Date Rodrick Sams MD [address] [facility] [place] [address] PCP - General Family Medicine 08/15/23 Team Status: Inactive Member Role Status Dates Meghan Shree Ramachandran DO Attending Provider Active Sta rt: August 06, 2024 End: August 06, 2024 Transfer And Pumphouse Operator Chief Relationship Specialty Start Date End Date Rodrick Sams MD [address] [facility] [place] [address] PCP - General Family Medicine 08/15/23 Goals (unrecognized section and content) Goals may be documented in a n alternate section No data available for this section No data available for this section No data available for this sectionGoals may be documented in an alternate section No data available for this section No data available for this sectionGoals may be documented in an alternate section No data available for this section Source Comments (unrecognize d section and content) In the event this informatio n is protected by the Federal Confidentiality of Alcohol and Drug Abuse Patient Records regulations: The Federal rules restrict any use of the information to criminally investigate or prosecute any alcohol or drug abuse patient.[facility] the event this information is protected by the Federal Confidentiality of Alcohol and Drug Abuse Patient Records regulations: The Federal rules restrict any use of the information to criminally investigate or prosecute any alcohol or drug abuse patient.[facility] the event this information is protected by the Federal Confidentiality of Alcohol and Drug Abuse Patient Records regulations: The Federal rules restrict any use of the information to criminally investigate or prosecute any alcohol or drug abuse patient.[facility] the event this information is protected by the Federal Confidentiality of Alcohol and Drug Abuse Patient Records regulations: The Federal rules restrict any use of the information to criminally investigate or prosecute any alcohol or drug abuse patient.[facility] the event this information is protected by the Federal Confidentiality of Alcohol and Drug Abuse Patient Records regulations: The Federal rules restrict any use of the information to criminally investigate or prosecute any alcohol or drug abuse patient.[facility] the event this information is protected by the Federal Confidentiality of Alcohol and Drug Abuse Patient Records regulations: The Federal rules restrict any use of the information to criminally investigate or prosecute any alcohol or drug abuse patient.[facility] the event this information is protected by the Federal Confidentiality of Alcohol and Drug Abuse Patient Records regulations: The Federal rules restrict any use of the information to criminally investigate or prosecute any alcohol or drug abuse patient.[facility] the event this information is protected by the Federal Confidentiality of Alcohol and Drug Abuse Patient Records regulations: The Federal rules restrict any use of the information to criminally investigate or prosecute any alcohol or drug abuse patient.[facility] the event this information is protected by the Federal Confidentiality of Alcohol and Drug Abuse Patient Records regulations: The Federal rules restrict any use of the information to criminally investigate or prosecute any alcohol or drug abuse patient.[facility] the event this information is protected by the Federal Confidentiality of Alcohol and Drug Abuse Patient Records regulations: The Federal rules restrict any use of the information to criminally investigate or prosecute any alcohol or drug abuse patient.[facility] the event this information is protected by the Federal Confidentiality of Alcohol and Drug Abuse Patient Records regulations: The Federal rules restrict any use of the information to criminally investigate or prosecute any alcohol or drug abuse patient.[facility] the event this information is protected by the Federal Confidentiality of Alcohol and Drug Abuse Patient Records regulations: The Federal rules restrict any use of the information to criminally investigate or prosecute any alcohol or drug abuse patient.[facility] the event this information is protected by the Federal Confidentiality of Alcohol and Drug Abuse Patient Records regulations: The Federal rules restrict any use of the information to criminally investigate or prosecute any alcohol or drug abuse patient.[facility] the event this information is protected by the Federal Confidentiality of Alcohol and Drug Abuse Patient Records regulations: The Federal rules restrict any use of the information to criminally investigate or prosecute any alcohol or drug abuse patient.[facility] Reason for Visit (unrecogniz ed section and content) Reason Comments New Patient Reason Comments Radiology MRI Specialty Diagnoses / Procedures Referred By Contac t Referred To Contact MR IMAGING Diagnoses Spinal stenosis of cervical region Procedures MRI CERVICAL SPINE WO IVCON MRI SPINAL CANAL CERVICAL W/O CONTRAST David Andrea MD [address] [place] [address] Mr Imaging [id number] Referral ID Status Reason Start Date Expiration Date V isits Requested Visits Authorized [id number] Closed Auto-Generate d Referral 09/13/2023 10/12/2024 1 1 Specialty Diagnoses / Procedures Referred By Contac t Referred To Contact MR IMAGING Diagnoses Abnormal posture Procedures MRI THORACIC SPINE WO IVCON MRI SPINAL CANAL THORACIC W/O CONTRAST David Andrea MD [address] [place] [address] Mr Imaging [place] [id number] Referral ID Status Reason Start Date Expiration Date V isits Requested Visits Authorized [id number] Closed Auto-Generate d Referral 09/13/2023 10/12/2024 1 1 Specialty Diagnoses / Procedures Referred By Contac t Referred To Contact MR IMAGING Diagnoses Spinal stenosis of lumbar region with neurogenic claudication Procedures MRI LUMBAR SPINE WO IVCON MRI SPINAL CANAL LUMBAR W/O CONTRAST MATERIAL Dvaid Valente MD [address] [place] [address] Mr Imaging [id number] Referral ID Status Reason Start Date Expiration Date V isits Requested Visits Authorized [id number] Closed Auto-Generate d Referral 09/13/2023 10/12/2024 1 1 Reason Comments Results MRI Reason Comments Parkinson's Disease Specialty Diagnoses / Procedures Referred By Contac t Referred To Contact Diagnoses Parkinson's disease, unspecified whether dyskinesia present, unspecified whether manifestations fluctuate (HCC) Procedures PROVIDER ORDERED FOLLOW UP OFFICE/OUTPATIENT [facility] AT [facility] 60 MINUTES David Valente MD [address] [place] [address] Referral ID Status Reason Start Date Expiration Date Visits Requested Visits Authorized [id number] Authorized PCP Requested Referral 10/13/2023 09/12/2024 1 1 Reason Comments Med Change Request Reason Comments Medication Update/Amantadine Reason Comments Established Patient Follow Up Reason Comments Established Patient Follow up Specialty Diagnoses / Procedures Referred By Contac t Referred To Contact Diagnoses Parkinson's disease with dyskinesia and fluctuating manifestations (HCC) Procedures PROVIDER ORDERED FOLLOW UP OFFICE/OUTPATIENT NEW HIGH MDM 60 MINUTES Mariola Montes PA-C [address] [place] [address] Referral ID Status Reason Start Date Expiration Date V isits Requested Visits Authorized [id number] Closed PCP Requested Referral 02/14/2024 01/13/2025 1 1 Reason Comments Refill Request Reason Comments Parkinson's Disease Insomnia Carpal Tunnel Reason Comments Parkinson's Disease Restless Legs Carpal Tunnel R History of Stroke Reason Comments Established Patient Follow up declined a ll tablets Specialty Diagnoses / Procedures Referred By Contac t Referred To [facility] Diagnoses Parkinson's disease with dyskinesia and fluctuating manifestations (HCC) Procedures PROVIDER ORDERED FOLLOW UP OFFICE/OUTPATIENT NEW HIGH MDM 60 MINUTES Mariola Montes PA-C [address] [place] [address] [facility] [address] [place] [id number] Referral ID Status Reason Start Date Expiration Date V isits Requested Visits Authorized [id number] Closed PCP Requested Referral 07/15/2024 02/21/2025 1 1 Reason Comments Surgical Clearance Reason Comments Fracture FOR RECORDS PERTAINING TO PATIENTS WHO ARE [...] BE BASED ON THE PRIMARY CLINICAL RECORDS. [facility]. provides no warranty or guarantee of the accuracy or completeness of information in this document.
--- NOTE | 2024-08-13 11:53 | PC.NURSE ---
pt brought over by antique clock repairer for low SpO2 reading of 87%-89% on RA. pt does not wear oxygen normally. she appears to be in no distress, she does not have any complaints, she states I feel completely fine . Pt did have wrist surgery on R arm yesterday with Dr Cooper in [place]. Ear SpO2 reading up and down from 87%-94% on RA with good waveform. Dr Ramachandran present to witness this. Pt lungs are clear, no congestion, wheezing or rhonchi assessed. No coughing.
[2024-08-13 12:07] LABS: Basophils Absolute Auto 0.1 10^3/uL (0.0-0.1); Basophils Percent Auto 0.5 % (0.2-2.0); Eosinophils Absolute Auto 0.1 10^3/uL (0.0-0.7); Hemoglobin 12.8 g/dL (12.0-16.0); Immature Granulocytes Abs Auto 0.02 10^3/uL (0.00-0.03); Immature Granulocytes Pct Auto 0.2 % (0.0-0.5); Lymphocytes Absolute Auto 1.8 10^3/uL (1.2-3.8); Lymphocytes Percent Auto 15.5 % (20.5-60.0); Mean Corpuscular HGB Conc 32.8 g/dL (29.9-35.2); Mean Corpuscular Hemoglobin 31.8 pg (26.7-34.0); Mean Corpuscular Volume 96.8 fL (81.0-99.0); Mean Platelet Volume 11.2 fL (9.5-13.5); Monocytes Absolute Auto 1.5 10^3/uL (0.3-0.8); Neutrophils Absolute Auto 8.1 10^3/uL (1.4-6.5); Neutrophils Percent Auto 69.8 % (43.0-75.0); Platelet Count 315 10^3/uL (150-450); Red Blood Count 4.03 10^6/uL (4.20-5.40); Red Cell Distribution Width 15.6 % (11.0-15.0); White Blood Count 11.6 10^3/uL (4.0-11.0)
[2024-08-13] MEDS: PREDNISONE 20 MG TABLET 40 MG PO (12:11)
[2024-08-13 12:31] LABS: Alanine Aminotransferase 8 U/L (14-59); Albumin Globulin Ratio 1.2; Albumin Level 3.8 g/dL (3.4-5.0); Alkaline Phosphatase 152 U/L (46-116); Anion Gap 13.9; Aspartate Amino Transferase 17 U/L (15-37); BUN Creatinine Ratio 15.6; Bilirubin Total 0.5 mg/dL (0.2-1.0); Calcium 11.2 mg/dL (8.5-10.1); Carbon Dioxide 25.9 mmol/L (21.0-32.0); Chloride 106 mmol/L (98-107); Estimated GFR (African America 49 (>=60 mL/min/1.73m^2); Estimated GFR (Non-African Ame 40 (>=60 mL/min/1.73m^2); Globulin 3.1 g/dL; Glucose 99 mg/dL (74-106); Potassium 3.8 mmol/L (3.5-5.1); Sodium 142 mmol/L (136-145); Total Protein 6.9 g/dL (6.4-8.2); Troponin I High Sensitivity 30.4 pg/mL (4.0-51.3)
[2024-08-13] MEDS: IPRATROPIUM/ALBUTEROL SULFATE 3 ML AMPUL.NEB IH (12:46)
--- NOTE | 2024-08-13 12:52 | ED_ITS ---
HPI HPI - General Adult General Chief complaint: Shortness of Breath/Dyspnea Stated complaint: LOW O2 LEVEL -SENT FROM CARDIO Time Seen by Provider: 08/13/24 11:24 Source: patient Mode of arrival: walk-in Limitations: no limitations History of Present Illness HPI narrative: Patient presents to ED for evaluation of hypoxia. She was sent over from cardio office for evaluation of low oxygen. They said they checked their vital signs over there and her oxygen saturation was in the mid 80s. Upon arrival here she was in the 90s. She does have a history of pulmonary fibrosis and runs around 94 to 95% anyway per patient and daughter. She just had surgery yesterday on her arm and she said she has been feeling great. She did get anesthesia and some IV fluids yesterday at surgery. She has no complaints of chest pain or shortness of breath. She said she is fine. She does not have any increased dyspnea or increased work of breathing. Pulse ox was not picking up very well on the finger so we switched it to her ear and she did have consistently good waveforms with readings at 86, 87% sometimes 92%. No fever no productive cough. Patient is resting comfortably in bed no acute distress Related Data Home Medications ?Medication ?Instructions ?Recorded ?Confirmed alprazolam 1 mg tablet 1.5 mg PO BEDTIME PRN sleep 02/08/23 08/06/24 amlodipine 5 mg tablet 5 mg PO DAILY 02/08/23 08/06/24 potassium chloride 20 mEq 20 meq PO BID 02/08/23 08/06/24 tablet,extended release(part/cryst) (Klor-Con M) pravastatin 20 mg tablet 20 mg PO DAILY 02/08/23 08/06/24 ascorbic acid (vitamin C) 1,000 mg 1 g PO DAILY 07/30/23 08/06/24 capsule cholecalciferol (vitamin D3) 125 125 mcg PO DAILY 07/30/23 08/06/24 mcg (5,000 unit) capsule cyclobenzaprine 10 mg tablet 10 mg PO BID PRN muscle spasm 07/30/23 08/06/24 ropinirole 0.25 mg tablet 0.5 mg PO TID 07/30/23 08/06/24 aspirin 81 mg chewable tablet 81 mg PO DAILY 08/10/23 08/06/24 lutein 25 mg-zeaxanthin 5 mg 1 cap PO DAILY 08/10/23 08/06/24 capsule rasagiline 1 mg tablet 1 mg PO DAILY 08/10/23 08/06/24 amantadine HCl 100 mg tablet 100 mg PO BID 04/09/24 08/06/24 carbidopa ER 25 mg-levodopa 100 mg 1 tab PO .7am, 12pm, 5pm 04/09/24 08/06/24 tablet,extended release lisinopril 20 1 tab PO DAILY 04/09/24 08/06/24 mg-hydrochlorothiazide 25 mg tablet pantoprazole 40 mg tablet,delayed 40 mg PO DAILY 04/09/24 08/06/24 release Previous Rx's ?Medication ?Instructions ?Recorded gabapentin 300 mg capsule 300 mg PO BID #60 caps 07/23/24 Allergies Allergy/AdvReac Type Severity Reaction Status Date / Time Sulfa (Sulfonamide Allergy Severe Anaphylaxis Verified 08/06/24 11:40 Antibiotics) Opioid HPI Opioid Management Most Recent Opioid Data: Last Pain Scale 3 09/03/23 10:28 09/03/23 Last Pain Intensity 0 08/11/23 10:28 08/11/23 Review of Systems ROS Status of ROS 10 or more systems reviewed and unremark able except as noted in history and below [facility] Medical History Acute diarrhea ?R19.7 - Diarrhea, unspecified (ICD-10) Acute kidney injury ?N17.9 - Acute kidney failure, unspecified (ICD-10) Hiatal hernia ?K44.9 - Diaphragmatic hernia without obstruction or gangrene (ICD-10) COPD (chronic obstructive pulmonary disease) ?J44.9 - Chronic obstructive pulmonary disease, unspecified (ICD-10) Parkinsons ?G20 - Parkinson's disease (ICD-10) Hypertension ?I10 - Essential (primary) hypertension (ICD-10) Surgical History History of appendectomy ?Z90.49 - Acquired absence of other specified parts of digestive tract (ICD- 10) H/O: hysterectomy ?Z90.710 - Acquired absence of both cervix and uterus (ICD-10) H/O splenectomy ?Z90.81 - Acquired absence of spleen (ICD-10) Family History Brother Family history of stroke Family history of hypertension Mother Family history of stroke Family history of hypertension Father Family history of cancer Social History Within the past year, how often did you have a drink containing alcohol: never Within the past year, how many standard drinks containing alcohol did you have on a typical day: 1 or 2 Within the past year, how often did you have six or more drinks on one occasion: never Total score: 0 Score interpretation: A score less than 3 is consistent with normal alcohol consumption. Smoking status: Former smoker Non-prescribed substance use: denies use Previous occupational history: retired Highest level of school completed/degree received: high school graduate Are you now , , , , never or living with a partner: In a typical week, how many times do you talk on the telephone with family, friends, or neighbors: 3 or more times per week How often do you get together with friends or relatives: 3 or more times per week How often do you attend rastafari or bahai services: 4 or more times per year Do you belong to any clubs or organizations such as rastafari groups unions, fraternal or athletic groups, or school groups: no Total score: 2 Score interpretation: A score of greater than or equal to 2 indicates the lowest level of social isolation. Little interest or pleasure in doing things: not at all Feeling down, depressed, or hopeless: not at all Feel stressed/tense/nervous/anxious/difficulty sleeping: not at all Gender Identity: female Exam Narrative Exam Narrative: Time Seen: [] Vital Signs: [Per nurse's notes.] General: [Alert] Skin: [Warm, dry, no rash.] Head: [Normocephalic, atraumatic.] Neck: [Supple, trachea midline.] Eye: [Pupils are equal, round and reactive to light, extraocular movements are intact, normal conjunctiva.] Ears, nose, mouth and throat: oral mucosa moist. Cardiovascular: [Regular rate and rhythm, no murmur.] Respiratory: Diminished breath sounds bilaterally respirations are non-labored, breath sounds are equal.] Gastrointestinal: [Soft, nontender, non distended, normal bowel sounds.] MSK: 5 out of 5 muscle strength x 4 extremities no calf pain or edema. Right arm in a cast Psychiatric: [Cooperative, appropriate mood & affect.] Neurological: [Alert and oriented to person, place, time, and situation, no focal neurological deficit observed.] Constitutional Vital Signs, click to edit/add: Last Vital Signs Temp 97.6 F 08/13/24 11:23 Pulse 70 08/13/24 12:20 Resp 17 08/13/24 12:20 BP 150/63 H 08/13/24 12:17 Pulse Ox 86 L 08/13/24 12:20 O2 Del Method Room Air 08/13/24 11:33 Course Vital Signs Vital signs: Vital Signs Temperature 97.6 F 08/13/24 11:23 Pulse Rate 84 08/13/24 11:23 Respiratory Rate 20 08/13/24 11:23 Blood Pressure 137/59 08/13/24 11:23 Pulse Oximetry 87 L 08/13/24 11:23 Oxygen Delivery Method Room Air 08/13/24 11:23 Temperature 97.6 F 08/13/24 11:23 Pulse Rate 70 08/13/24 12:20 Respiratory Rate 17 08/13/24 12:20 Blood Pressure 150/63 H 08/13/24 12:17 Pulse Oximetry 86 L 08/13/24 12:20 Oxygen Delivery Method Room Air 08/13/24 11:33 Medical Decision Making MDM Narrative Medical decision making narrative: Patient's labs show an elevated BNP at almost 1300. Her previous BNP was 57. This may be accounting for the increased interstitial findings on the chest x- ray. Most likely fibrosis changes and fluid overload, I am less concerned about pneumonia with no fever no elevated white count no tachycardia no productive cough. I spoke to Dr. Leary who will admit the patient for diuresis, she will stay observation overnight. She is receiving a breathing treatment at this time which did improve her oxygenation. She also received steroids as well. Dr. Leary will put in diuretic orders. Patient comfortable with care plan for admission. Differential Diagnosis Differential Diagnosis: COPD emphysema hypoxia pneumonia CHF Medical Records Medical records reviewed: Yes I reviewed the patient's medical records Lab Data Lab results reviewed: Yes I reviewed the patient's lab results Labs: Lab Results 08/13/24 Range/Units 11:48 WBC 11.6 H (4.0-11.0) 10^3/uL RBC 4.03 L (4.20-5.40) 10^6/uL Hgb 12.8 (12.0-16.0) g/dL Hct 39.0 (36.0-48.0) % MCV 96.8 (81.0-99.0) fL MCH 31.8 (26.7-34.0) pg MCHC 32.8 (29.9-35.2) g/dL RDW 15.6 H (11.0-15.0) % Plt Count 315 (150-450) 10^3/uL MPV 11.2 (9.5-13.5) fL Neut % (Auto) 69.8 (43.0-75.0) % Lymph % (Auto) 15.5 L (20.5-60.0) % [place] % (Auto) 13.0 H (1.7-12.0) % Eos % (Auto) 1.0 (0.9-7.0) % Baso % (Auto) 0.5 (0.2-2.0) % Neut # (Auto) 8.1 H (1.4-6.5) 10^3/uL Lymph # (Auto) 1.8 (1.2-3.8) 10^3/uL [place] # (Auto) 1.5 H (0.3-0.8) 10^3/uL Eos # (Auto) 0.1 (0.0-0.7) 10^3/uL Baso # (Auto) 0.1 (0.0-0.1) 10^3/uL Abs Immat Gran (auto) 0.02 (0.00-0.03) 10^3/uL Imm/Tot Granulo (auto) 0.2 (0.0-0.5) % Sodium 142 (136-145) mmol/L Potassium 3.8 (3.5-5.1) mmol/L Chloride 106 (98-107) mmol/L Carbon Dioxide 25.9 (21.0-32.0) mmol/L Anion Gap 13.9 BUN 20.0 H (7.0-18.0) mg/dL Creatinine 1.28 H (0.55-1.02) mg/dL Est GFR ( Amer) 49 L (>=60 mL/min/1.73m^2) Est GFR (Non-Af Amer) 40 L (>=60 mL/min/1.73m^2) BUN/Creatinine Ratio 15.6 Glucose 99 (74-106) mg/dL Calcium 11.2 H (8.5-10.1) mg/dL Total Bilirubin 0.5 (0.2-1.0) mg/dL AST 17 (15-37) U/L ALT 8 L (14-59) U/L Alkaline Phosphatase 152 H (46-116) U/L Troponin I High Sens 30.4 (4.0-51.3) pg/mL NT-Pro-B Natriuret Pep 1283.0 (<=1800.0) pg/mL Total Protein 6.9 (6.4-8.2) g/dL Albumin 3.8 (3.4-5.0) g/dL Globulin 3.1 g/dL Albumin/Globulin Ratio 1.2 Imaging Data Chest x-ray: Attestation: I have reviewed the pertinent imaging results. ECG Data Attestation: ?I have reviewed the pertinent ECG results. Interpretation: EKG INTERPRETATION Time: [] 121 Rate: [] 71 Rhythm: _ [] Normal sinus rhythm ST segments: _ [] No acute ST elevation or depression T waves: _ [] Ectopy: _ [] P wave/SC interval: _ [] QRS interval: _ [] QT interval: _ [] Comparison: _ [] Comparison EKG date: [] Performed by: [self] Discharge Plan Discharge Chief Complaint: Shortness of Breath/Dyspnea Clinical Impression: Congestive heart failure, Hypoxia Patient Disposition: Admitted as Observation Time of Disposition Decision: 12:58 Condition: Fair Prescriptions / Home Meds: No Action alprazolam 1 mg tablet 1.5 mg PO BEDTIME PRN (Reason: sleep) amlodipine 5 mg tablet 5 mg PO DAILY potassium chloride [Klor-Con M20] 20 mEq tablet,ER particles/crystals 20 meq PO BID pravastatin 20 mg tablet 20 mg PO DAILY ropinirole 0.25 mg tablet 0.5 mg PO TID ascorbic acid (vitamin C) 1,000 mg capsule 1 g PO DAILY cholecalciferol (vitamin D3) 125 mcg (5,000 unit) capsule 125 mcg PO DAILY cyclobenzaprine 10 mg tablet 10 mg PO BID PRN (Reason: muscle spasm) aspirin 81 mg tablet,chewable 81 mg PO DAILY lutein-zeaxanthin 25-5 mg capsule 1 cap PO DAILY rasagiline 1 mg tablet 1 mg PO DAILY amantadine HCl 100 mg tablet 100 mg PO BID carbidopa-levodopa 25-100 mg tablet extended release 1 tab PO .7am, 12pm, 5pm pantoprazole 40 mg tablet,delayed release (DR/EC) 40 mg PO DAILY lisinopril-hydrochlorothiazide 20-25 mg tablet 1 tab PO DAILY gabapentin 300 mg capsule 300 mg PO BID Qty: 60 0RF Rx Instructions: DO NOT FILL TILL 07/24/24 Print Language: Urdu Referrals: Kavon Leary MD [Primary Care Provider] - 1 week
[2024-08-13 13:50] LABS: Lactate/Lactic Acid 1.2 mmol/L (0.4-2.0)
[2024-08-13] MEDS: ROPINIROLE HCL 0.25 MG TABLET 0.5 MG PO ×2 (14:23→21:36)
[2024-08-13] MEDS: FUROSEMIDE 40 MG/4 ML VIAL IVP (14:23)
[2024-08-13 15:10] LABS: Influenza Virus A Antigen Negative; Influenza Virus B Antigen Negative; Internal Control Within Normal Limits
[2024-08-13 15:11] LABS: Internal Control Within Normal Limits; Respiratory Syncytial Virus Not Detected (NOT DETECTE); SARS-CoV-2 Ag NEGATIVE (NEGATIVE)
--- NOTE | 2024-08-13 16:02 | SWNOTE1 ---
SW consulted for Advanced Directives. SW stopped in room. Daughter was in room as well. Pt and daughter stated pt has already completed HCPOA. Pt voiced she was interested or thinking about switching to DNR status. SW explained that she is a full code now and that there us DNRCCA and DNRCC. Pt unsure at this time. SW advised that SW will leave a form by her chart and message doctor to converse with her about it tomorrow. SW let nurse know.
[2024-08-13 16:03] LABS: Bilirubin Urine NEGATIVE (NEGATIVE); Blood Urine NEGATIVE (NEGATIVE); Clarity Urine CLEAR (CLEAR); Color Urine LT. YELLOW (YELLOW); Glucose Urine UA NEGATIVE (NEGATIVE); Ketones Urine NEGATIVE (NEGATIVE); Leukocyte Esterase Urine SMALL (NEGATIVE); Nitrite Urine NEGATIVE (NEGATIVE); Protein Urine NEGATIVE (NEG/TRACE); Specific Gravity Urine 1.015 (1.005-1.025); Urobilinogen Urine 0.2 EU/dL (0.2-1.0)
[2024-08-13 16:17] LABS: Bacteria Urine NONE SEEN #/HPF (NONE SEEN); Calcium Oxalate Crystals Urine RARE; Cast Seen? NONE SEEN #/LPF (NONE SEEN); Crystals Seen? Seen #/HPF (None Seen); Mucus Urine NONE SEEN (NONE SEEN); RBC Urine 0-2 #/HPF (0-2); Squamous Epithelial Cell Urine RARE #/LPF (NONE/RARE); Urine Culture Indicated ALREADY ORDERED
[2024-08-13] MEDS: CARBIDOPA/LEVODOPA CR 25-100 MG TABLET 1 TAB PO (16:24)
[2024-08-13] MEDS: POTASSIUM CHLORIDE 10 MEQ ER TABLET 20 MEQ PO (16:24)
--- NOTE | 2024-08-13 19:41 | P.HP_ITS ---
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, her BNP is not outside the normal range but is 20 times higher than her previous levels Opioid HPI Opioid Management Most Recent Pain and Opioid Data: Last Pain Scale 1 08/13/24 14:00 08/13/24 Last Pain Intensity 0 08/11/23 10:28 08/11/23 Last Pain Assessment 08/13/24 17:48 Last ORT Total Score 0 08/13/24 13:44 08/13/24 Last ORT Risk Category Low Risk 08/13/24 13:44 08/13/24 Review of Systems ROS Status of ROS 10 or more systems reviewed and unremark able except as noted in history and below PFS PFS Medical History Acute diarrhea ?R19.7 - Diarrhea, unspecified (ICD-10) Acute kidney injury ?N17.9 - Acute kidney failure, unspecified (ICD-10) Hiatal hernia ?K44.9 - Diaphragmatic hernia without obstruction or gangrene (ICD-10) COPD (chronic obstructive pulmonary disease) ?J44.9 - Chronic obstructive pulmonary disease, unspecified (ICD-10) Parkinsons ?G20 - Parkinson's disease (ICD-10) Hypertension ?I10 - Essential (primary) hypertension (ICD-10) Surgical History History of appendectomy ?Z90.49 - Acquired absence of other specified parts of digestive tract (ICD- 10) H/O: hysterectomy ?Z90.710 - Acquired absence of both cervix and uterus (ICD-10) H/O splenectomy ?Z90.81 - Acquired absence of spleen (ICD-10) Family History Brother Family history of stroke Family history of hypertension Mother Family history of stroke Family history of hypertension Father Family history of cancer Social History Within the past year, how often did you have a drink containing alcohol: never Within the past year, how many standard drinks containing alcohol did you have on a typical day: 1 or 2 Within the past year, how often did you have six or more drinks on one occasion: never Total score: 0 Score interpretation: A score less than 3 is consistent with normal alcohol consumption. Smoking status: Former smoker Non-prescribed substance use: denies use Previous occupational history: retired Highest level of school completed/degree received: high school graduate Are you now , , , , never or living with a partner: In a typical week, how many times do you talk on the telephone with family, friends, or neighbors: 3 or more times per week How often do you get together with friends or relatives: 3 or more times per week How often do you attend druze or sikhism services: 4 or more times per year Do you belong to any clubs or organizations such as druze groups unions, [employer] or athletic groups, or school groups: no Total score: 2 Score interpretation: A score of greater than or equal to 2 indicates the lowest level of social isolation. Little interest or pleasure in doing things: not at all Feeling down, depressed, or hopeless: not at all Feel stressed/tense/nervous/anxious/difficulty sleeping: not at all Gender Identity: female Meds Home Medications and Allergies Home Medications ?Medication ?Instructions ?Recorded ?Confirmed ?Type alprazolam 1 mg tablet 1.5 mg PO BEDTIME PRN sleep 02/08/23 08/13/24 History amlodipine 5 mg tablet 5 mg PO DAILY 02/08/23 08/13/24 History potassium chloride 20 mEq 20 meq PO BID 02/08/23 08/13/24 History tablet,extended release(part/cryst) (Klor-Con M) ascorbic acid (vitamin C) 1,000 mg 1 g PO DAILY 07/30/23 08/13/24 History capsule cholecalciferol (vitamin D3) 125 125 mcg PO DAILY 07/30/23 08/13/24 History mcg (5,000 unit) capsule cyclobenzaprine 10 mg tablet 10 mg PO BID PRN muscle spasm 07/30/23 08/13/24 History ropinirole 0.25 mg tablet 0.5 mg PO TID 07/30/23 08/13/24 History aspirin 81 mg chewable tablet 81 mg PO DAILY 08/10/23 08/13/24 History lutein 25 mg-zeaxanthin 5 mg 1 cap PO DAILY 08/10/23 08/13/24 History capsule rasagiline 1 mg tablet 1 mg PO DAILY 08/10/23 08/13/24 History amantadine HCl 100 mg tablet 100 mg PO BID@0700,1200 04/09/24 08/13/24 History carbidopa ER 25 mg-levodopa 100 mg 1 tab PO .7am, 12pm, 5pm 04/09/24 08/13/24 History tablet,extended release lisinopril 20 1 tab PO DAILY 04/09/24 08/13/24 History mg-hydrochlorothiazide 25 mg tablet pantoprazole 40 mg tablet,delayed 40 mg PO BID 04/09/24 08/13/24 History release gabapentin 300 mg capsule 300 mg PO BID 08/13/24 08/13/24 History hydrocodone 5 mg-acetaminophen 325 1 - 2 tab PO .Q4-6H PRN pain 08/13/24 08/13/24 History mg tablet Allergies Allergy/AdvReac Type Severity Reaction Status Date / Time Sulfa (Sulfonamide Allergy Severe Anaphylaxis Verified 08/06/24 11:40 Antibiotics) Exam Constitutional Vital Signs, click to edit/add: Last Vital Signs Temp 97.4 F L 08/13/24 13:44 Pulse 81 08/13/24 17:48 Resp 20 08/13/24 13:44 BP 151/79 H 08/13/24 13:44 Pulse Ox 96 08/13/24 16:12 O2 Del Method Nasal Cannula 08/13/24 16:12 O2 Flow Rate 2 08/13/24 16:12 Documenting provider has reviewed patient's vital signs: yes Common normals: no apparent distress Chest Common normals: inspection of chest normal Respiratory Common normals: normal respiratory effort and no retractions Auscultation: rales (Minimal in bases) Cardio Common normals: regular rate and regular rhythm Extremity Common normals: full ROM; abnormal to inspection (Trace edema) Results Labs Labs: Short CBC 08/13/24 Range/Units 11:48 WBC 11.6 H (4.0-11.0) 10^3/uL Hgb 12.8 (12.0-16.0) g/dL Hct 39.0 (36.0-48.0) % Plt Count 315 (150-450) 10^3/uL BMP 08/13/24 11:48 Sodium 142 Potassium 3.8 Chloride 106 Carbon Dioxide 25.9 BUN 20.0 H Creatinine 1.28 H Glucose 99 Calcium 11.2 H Liver Function 08/13/24 Range/Units 11:48 Total Bilirubin 0.5 (0.2-1.0) mg/dL AST 17 (15-37) U/L ALT 8 L (14-59) U/L Alkaline Phosphatase 152 H (46-116) U/L Albumin 3.8 (3.4-5.0) g/dL Urine 08/13/24 Range/Units 15:20 Urine Color Lt. yellow (YELLOW) Urine Clarity Clear (CLEAR) Urine pH 6.0 (5.0-9.0) Ur Specific [place] 1.015 (1.005-1.025) Urine Protein Negative (NEG/TRACE) mg/dL Urine Glucose (UA) Negative (NEGATIVE) mg/dL Assessment and Plan Assessment and Plan (1) Hypoxia: (2) Congestive heart failure: (3) Weakness generalized: (4) Acute UTI: Plan Admission findings: Hypoxia requiring 3 L of supplemental oxygen, uncontrolled hypertension elevated BNP from her baseline mild acute elevation in BUN and creatinine secondary to 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 Hypertension-Continue with home medications Back pain-continue with home medications Tremor-continue with home medications L GERD-continue with home medications Admission status: Patient with acute combined congestive heart failure but mild, suspect was may be affected anesthesia from the previous day, medically nece ssary treatment will likely only span 1 midnight, observation status
[2024-08-13] MEDS: PANTOPRAZOLE SODIUM 40 MG TABLET.DR PO (21:36)
[2024-08-13] MEDS: GABAPENTIN 300 MG CAPSULE PO (21:36)
[2024-08-13] MEDS: ATORVASTATIN CALCIUM 10 MG TABLET PO (21:36)
[2024-08-13] MEDS: ALPRAZOLAM 1 MG TABLET 1.5 MG PO (23:13)
[2024-08-14] VITALS (10 sets, daily range): BP systolic 150–161; BP diastolic 57–75; PULSE 73–96; TEMP 36.3–36.8; O2SAT 92–94
[2024-08-14] MEDS: ROPINIROLE HCL 0.25 MG TABLET 0.5 MG PO (05:24)
[2024-08-14] MEDS: AMANTADINE HCL 100 MG CAPSULE PO ×2 (06:03→11:42)
[2024-08-14] MEDS: CARBIDOPA/LEVODOPA CR 25-100 MG TABLET 1 TAB PO ×2 (06:03→11:42)
[2024-08-14 06:05] LABS: Basophils Percent Auto 0.3 % (0.2-2.0); Hematocrit 36.8 % (36.0-48.0); Immature Granulocytes Abs Auto 0.02 10^3/uL (0.00-0.03); Immature Granulocytes Pct Auto 0.2 % (0.0-0.5); Lymphocytes Absolute Auto 1.6 10^3/uL (1.2-3.8); Lymphocytes Percent Auto 17.8 % (20.5-60.0); Mean Corpuscular HGB Conc 32.6 g/dL (29.9-35.2); Mean Corpuscular Hemoglobin 30.9 pg (26.7-34.0); Mean Corpuscular Volume 94.8 fL (81.0-99.0); Mean Platelet Volume 11.3 fL (9.5-13.5); Monocytes Absolute Auto 1.1 10^3/uL (0.3-0.8); Monocytes Percent Auto 12.2 % (1.7-12.0); Neutrophils Absolute Auto 6.2 10^3/uL (1.4-6.5); Neutrophils Percent Auto 69.5 % (43.0-75.0); Platelet Count 314 10^3/uL (150-450); Red Blood Count 3.88 10^6/uL (4.20-5.40); Red Cell Distribution Width 15.4 % (11.0-15.0); White Blood Count 8.9 10^3/uL (4.0-11.0)
[2024-08-14 06:25] LABS: Anion Gap 9.7; BUN Creatinine Ratio 20.2; Calcium 10.7 mg/dL (8.5-10.1); Carbon Dioxide 30.4 mmol/L (21.0-32.0); Chloride 107 mmol/L (98-107); Estimated GFR (African America 56 (>=60 mL/min/1.73m^2); Estimated GFR (Non-African Ame 46 (>=60 mL/min/1.73m^2); Glucose 100 mg/dL (74-106); Potassium 4.1 mmol/L (3.5-5.1); Sodium 143 mmol/L (136-145)
--- NOTE | 2024-08-14 07:05 | P.DS_ITS ---
DS: Providers Provider Date of admission: 08/13/24 13:30 Primary care physician: Kavon Leary MD Consults: 08/13/24 Consult to [facility] Routine Reason for consult:: Advanced Directives 08/13/24 13:08 Consult to Pharmacy Routine Consulting Provider: Reason for consultation: Please Lagrange me when Med Rec is Updated Has provider been notified: No Occupational Therapy Eval and Treat Routine Reason for consultation: Only if needed for Rehab Has provider been notified: No Physical Therapy Eval and Treat Routine Reason for consultation: Eval and Treat Has provider been notified: No DS: Diagnosis Discharge Diagnosis (1) Hypoxia: (2) Congestive heart failure: (3) Weakness generalized: (4) Acute UTI: Plan Admission findings: Hypoxia requiring 3 L of supplemental oxygen, uncontrolled hypertension elevated BNP from her baseline mild acute elevation in BUN and creatinine secondary to 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 Hypertension-Continue with home medications acute UTI -0 cx pending Back pain-continue with home medications Tremor-continue with home medications GERD-continue with home medications Admission status: Patient with acute combined congestive heart failure but mild, suspect was may be affected anesthesia from the previous day, medically necessary treatment will likely only span 1 midnight, observation status ? DS: Summary Hospital Course Hospital Course: Patient was sent to the emergency room with acute hypoxia, found to have acute combined congestive heart failure, given IV Lasix overnight diuresed over 3 L, still hypoxic with ambulation but patient refused supplemental oxygen her oxygen does return to baseline at rest, give 1 more dose of IV Lasix prior to discharge. She will follow-up with me closely in the office within the next 1 to 4 days, medications list Status at Discharge Overall status at discharge: patient is not back to baseline Time Spent with Patient Time attestation: Total time spent providing and/or coordinating discharge services: Time spent: greater than 30 minutes Exam Constitutional Vital Signs, click to edit/add: Last Vital Signs Temp 98.3 F 08/14/24 05:00 Pulse 85 08/14/24 06:00 Resp 20 08/14/24 05:00 BP 161/75 H 08/14/24 05:00 Pulse Ox 94 L 08/14/24 05:00 O2 Del Method Nasal Cannula 08/14/24 05:00 O2 Flow Rate 1 08/14/24 05:00 Documenting provider has reviewed patient's vital signs: yes Common normals: no apparent distress Chest Common normals: inspection of chest normal Respiratory Common normals: normal respiratory effort and no retractions Auscultation: rales (Minimal in bases) Cardio Common normals: regular rate, regular rhythm and no murmurs Extremity Common normals: normal to inspection, full ROM and no clubbing, cyanosis or edema DS: Data Data Completed and Pending Labs on day of discharge: Labs from last 24 hours 08/14/24 08/13/24 08/13/24 05:23 15:20 14:22 WBC 8.9 RBC 3.88 L Hgb 12.0 Hct 36.8 MCV 94.8 MCH 30.9 MCHC 32.6 RDW 15.4 H Plt Count 314 MPV 11.3 Neut % (Auto) 69.5 Lymph % (Auto) 17.8 L [place] % (Auto) 12.2 H Eos % (Auto) 0.0 L Baso % (Auto) 0.3 Neut # (Auto) 6.2 Lymph # (Auto) 1.6 [place] # (Auto) 1.1 H Eos # (Auto) 0.0 Baso # (Auto) 0.0 Abs Immat Gran (auto) 0.02 Imm/Tot Granulo (auto) 0.2 Sodium 143 Potassium 4.1 Chloride 107 Carbon Dioxide 30.4 Anion Gap 9.7 BUN 23.0 H Creatinine 1.14 H Est GFR ( Amer) 56 L Est GFR (Non-Af Amer) 46 L BUN/Creatinine Ratio 20.2 Glucose 100 Lactate Calcium 10.7 H Magnesium Total Bilirubin AST ALT Alkaline Phosphatase Troponin I High Sens NT-Pro-B Natriuret Pep 931.0 Total Protein Albumin Globulin Albumin/Globulin Ratio Urine Color Lt. yellow Urine Clarity Clear Urine pH 6.0 Ur Specific [place] 1.015 Urine Protein Negative Urine Glucose (UA) Negative Urine Ketones Negative Urine Occult Blood Negative Urine Nitrite Negative Urine Bilirubin Negative Urine Urobilinogen 0.2 Ur Leukocyte Esterase Small A Urine RBC 0-2 Urine WBC 5-10 A Ur Squamous Epith Cells Rare Urine Crystals Seen A Calcium Oxalate Crystal Rare Urine Bacteria None seen Urine Casts None seen Urine Mucus None seen Ur Culture Indicated? Already ordered Influenza Type A Ag Negative Influenza Type B Ag Negative RSV Antigen Not detected SARS-CoV-2 Ag (CV2AG) Negative 08/13/24 11:48 WBC 11.6 H RBC 4.03 L Hgb 12.8 Hct 39.0 MCV 96.8 MCH 31.8 MCHC 32.8 RDW 15.6 H Plt Count 315 MPV 11.2 Neut % (Auto) 69.8 Lymph % (Auto) 15.5 L [place] % (Auto) 13.0 H Eos % (Auto) 1.0 Baso % (Auto) 0.5 Neut # (Auto) 8.1 H Lymph # (Auto) 1.8 [place] # (Auto) 1.5 H Eos # (Auto) 0.1 Baso # (Auto) 0.1 Abs Immat Gran (auto) 0.02 Imm/Tot Granulo (auto) 0.2 Sodium 142 Potassium 3.8 Chloride 106 Carbon Dioxide 25.9 Anion Gap 13.9 BUN 20.0 H Creatinine 1.28 H Est GFR ( Amer) 49 L Est GFR (Non-Af Amer) 40 L BUN/Creatinine Ratio 15.6 Glucose 99 Lactate 1.2 Calcium 11.2 H Magnesium 2.0 Total Bilirubin 0.5 AST 17 ALT 8 L Alkaline Phosphatase 152 H Troponin I High Sens 30.4 NT-Pro-B Natriuret Pep 1283.0 Total Protein 6.9 Albumin 3.8 Globulin 3.1 Albumin/Globulin Ratio 1.2 Urine Color Urine Clarity Urine pH Ur Specific [place] Urine Protein Urine Glucose (UA) Urine Ketones Urine Occult Blood Urine Nitrite Urine Bilirubin Urine Urobilinogen Ur Leukocyte Esterase Urine RBC Urine WBC Ur Squamous Epith Cells Urine Crystals Calcium Oxalate Crystal Urine Bacteria Urine Casts Urine Mucus Ur Culture Indicated? Influenza Type A Ag Influenza Type B Ag RSV Antigen SARS-CoV-2 Ag (CV2AG) Discharge Plan Discharge Disposition: Home, Self-Care Condition: Fair Discharge Medications: New cefdinir 300 mg Capsule 600 mg PO QD Qty: 20 0RF Continued alprazolam 1 mg tablet 1.5 mg PO BEDTIME PRN (Reason: sleep) amlodipine 5 mg tablet 5 mg PO DAILY potassium chloride [Klor-Con M20] 20 mEq tablet,ER particles/crystals 20 meq PO BID ropinirole 0.25 mg tablet 0.5 mg PO TID ascorbic acid (vitamin C) 1,000 mg capsule 1 g PO DAILY cholecalciferol (vitamin D3) 125 mcg (5,000 unit) capsule 125 mcg PO DAILY cyclobenzaprine 10 mg tablet 10 mg PO BID PRN (Reason: muscle spasm) aspirin 81 mg tablet,chewable 81 mg PO DAILY lutein-zeaxanthin 25-5 mg capsule 1 cap PO DAILY rasagiline 1 mg tablet 1 mg PO DAILY amantadine HCl 100 mg tablet 100 mg PO BID@0700,1200 carbidopa-levodopa 25-100 mg tablet extended release 1 tab PO .7am, 12pm, 5pm pantoprazole 40 mg tablet,delayed release (DR/EC) 40 mg PO BID lisinopril-hydrochlorothiazide 20-25 mg tablet 1 tab PO DAILY gabapentin 300 mg capsule 300 mg PO BID hydrocodone-acetaminophen 5-325 mg tablet 1 - 2 tab PO .Q4-6H PRN (Reason: pain) Rx Instructions: FILLED 08/12/24 FOR POST OP PAIN X7 DAYS Print Language: Turkmen Patient Instructions: Cefdinir (By mouth) (Omnicef), Urinary Tract Infection in Older Adults (GEN) Forms: Portal Instructions Follow Up Appointments: August 19 @ 10:45am with Dr. Leary [phone] Discharge Date/Time: 08/14/24 14:37
[2024-08-14] MEDS: LISINOPRIL 20 MG TABLET PO (09:09)
[2024-08-14] MEDS: AMLODIPINE BESYLATE 5 MG TABLET PO (09:09)
[2024-08-14] MEDS: HYDROCHLOROTHIAZIDE 25 MG TABLET PO (09:09)
[2024-08-14] MEDS: ASPIRIN 81 MG TAB.CHEW PO (09:09)
[2024-08-14] MEDS: GABAPENTIN 300 MG CAPSULE PO (09:09)
[2024-08-14] MEDS: POTASSIUM CHLORIDE 10 MEQ ER TABLET 20 MEQ PO (09:09)
[2024-08-14] MEDS: CEFDINIR 300 MG CAPSULE 600 MG PO (09:10)
[2024-08-14] MEDS: PANTOPRAZOLE SODIUM 40 MG TABLET.DR PO (09:10)
--- NOTE | 2024-08-14 09:41 | CM.NOTE ---
Rounds made with Dr. Leary, RN has pt on RA this AM. Dr. Leary discussed with pt about discharge to home today and f/u with PCP.
[2024-08-14] MEDS: FUROSEMIDE 40 MG/4 ML VIAL IVP (11:46)
--- NOTE | 2024-08-14 11:47 | CM.NOTE ---
Medicare Outpatient Observation Notice discussed with pt, pt verbalizes understanding and signs paper. Original given to pt and copy placed on pt's chart
--- NOTE | 2024-08-15 15:31 | CM.DCFOLLOWU ---
Person spoke with:patient How are you feeling?well How is your pain?none Did you understand your discharge instructions?yes Do you have any questions about your discharge instructions?no Were you given any prescriptions at discharge?yes Were you able to get your prescriptions filled?yes Do you understand how to take your medications as ordered?yes Do you have any questions about your follow up appointment and do you plan to keep your follow up appointment? no questions, reviewed follow up Is there anything else that you would like to discuss?no Questions/Comments/Concerns/Other:none
--- NOTE | 2024-08-18 13:40 | CM.NOTE ---
Urine culture results faxed to Dr. Leary's office after speaking to office staff. Appointment 08/19/24 @ [phone].
== END 2024-08-14 14:37 | disposition home or self-care (01) ==
LOC: ER 13:32 → MS 13:36
PROVIDERS: Admitting Provider Family Medicine; Emergency Provider Emergency Medicine; PCP Family Medicine; Visit Provider Family Medicine
DX: I11.0 Hypertensive heart disease with heart failure (principal); I50.41 Acute combined systolic (congestive) and diastolic (congestive) heart failure; R09.02 Hypoxemia; Z87.891 Personal history of nicotine dependence; R53.1 Weakness; N39.0 Urinary tract infection, site not specified; M54.9 Dorsalgia, unspecified; R25.1 Tremor, unspecified; Z79.899 Other long term (current) drug therapy; K21.9 Gastro-esophageal reflux disease without esophagitis; Z98.890 Other specified postprocedural states; Z90.710 Acquired absence of both cervix and uterus; Z90.49 Acquired absence of other specified parts of digestive tract; Z90.81 Acquired absence of spleen
CPT/HCPCS: 36415; 71046; 80048; 80053; 81001; 83605; 83735; 83880; 84484; 85025; 87070; 87086; 87150; 87186; 87205; 87420; 87804; 87811; 93005; 94640; 94667; 94668; 94761; 94762; 96374; 96376; 97162; 97165; 99285; G0378; J1940; J7512

== ENCOUNTER 2024-10-22 19:07 | Inpatient (IN) | payer MEDICARE, OTHER, SELFPAY ==
[2024-10-22 20:14] VITALS: BP 169/84; PULSE 81; TEMP 36.3; O2SAT 96; BMI 16.5
--- NOTE | 2024-10-22 20:35 | ED_ITS ---
<Statement entered by Kun Jensen MD - 10/23/24 06:46> This documentation has been reviewed and approved. patient admitted to obs hospitalist service Documented by User: Sai Hercules NP 10/22/24 21:20 HPI HPI - General Adult General Chief complaint: Abdominal Pain Stated complaint: SEVERE ABDOMINAL PAIN, TROUBLE BREATHING Time Seen by Provider: 10/22/24 20:20 Source: patient Mode of arrival: walk-in Limitations: no limitations History of Present Illness HPI narrative: The patient is a 79-year-old female who presents to the emergency department today for evaluation of concerns for abdominal pain. She endorses her pain suddenly began this afternoon and reports it to be across the entirety of her mid abdominal region. She believes she is constipated and states her last bowel movement was 2 to 3 days ago. She has any significant history of constipation. She states she took a Fleet enema earlier today with no improvement in pain and no subsequent bowel movement. Some nausea without vomiting. No fever/chills, chest pain, shortness of breath. No urinary symptoms or back/flank pain. She reports a history of a hernia repair 1 year prior. Otherwise denies any significant surgical history. Malignancy but she does endorse a history of Parkinson's. Related Data Home Medications ?Medication ?Instructions ?Recorded ?Confirmed alprazolam 1 mg tablet 1.5 mg PO BEDTIME PRN sleep 02/08/23 10/23/24 amlodipine 5 mg tablet 5 mg PO DAILY 02/08/2310/22 potassium chloride 20 mEq 20 meq PO BID 02/08/2310/22 tablet,extended release(part/cryst) (Klor-Con M) cholecalciferol (vitamin D3) 125 125 mcg PO DAILY 07/1210/22/24 mcg (5,000 unit) capsule aspirin 81 mg chewable tablet 81 mg PO DAILY 08/10/23 10/22/24 lutein 25 mg-zeaxanthin 5 mg 1 cap PO DAILY 08/10/23 0 10/22/24 capsule rasagiline 1 mg tablet 1 mg PO DAILY 08/10/2310/22 amantadine HCl 100 mg tablet 100 mg PO BID@0700,1200 1 10/22/24 carbidopa ER 25 mg-levodopa 100 mg 1 tab PO .7am, 12pm , 5pm 04/09/24 10/22/24 tablet,extended release pantoprazole 40 mg tablet,delayed 40 mg PO BID 4 10/22/24 release hydralazine 25 mg tablet 25 mg PO Q12H 10/22/2410/22 ropinirole 0.5 mg tablet 0.5 mg PO .QHS 10/23/2410/09 sucralfate 1 gram tablet 1 g PO QID 10/23/24 10/23/24 Allergies Allergy/AdvReac Type Severity Reaction Status Date / Time Sulfa (Sulfonamide Allergy Severe Anaphylaxis Verified 10/22/24 20:20 Antibiotics) Opioid HPI Opioid Management Most Recent Opioid Data: Last Pain Scale 3 10/23/24, 09:41 Last Pain Intensity 3 10/23/24, 09:41 Last Pain Assessment 10/23/24, 00:00 Last ORT Total Score 0 10/22/24, 23:53 Last ORT Risk Category Low Risk 10/22/24, 23:53 Review of Systems ROS Status of ROS 10 or more systems reviewed and unremark able except as noted in history and below [facility] Medical History (Updated 10/23/24 @ 08:26 by Kavon Leary MD) Visit for PT (physical therapy) Right wrist fracture ?S62.101A - Fracture of unspecified carpal bone, right wrist, initial encou nter for closed fracture (ICD-10) Hypoxia ?R09.02 - Hypoxemia (ICD-10) Congestive heart failure ?I50.9 - Heart failure, unspecified (ICD-10) Weakness generalized ?R53.1 - Weakness (ICD-10) Acute UTI ?N39.0 - Urinary tract infection, site not specified (ICD-10) Acute diarrhea ?R19.7 - Diarrhea, unspecified (ICD-10) Acute kidney injury ?N17.9 - Acute kidney failure, unspecified (ICD-10) Hiatal hernia ?K44.9 - Diaphragmatic hernia without obstruction or gangrene (ICD-10) COPD (chronic obstructive pulmonary disease) ?J44.9 - Chronic obstructive pulmonary disease, unspecified (ICD-10) Parkinsons ?G20 - Parkinson's disease (ICD-10) Hypertension ?I10 - Essential (primary) hypertension (ICD-10) Surgical History History of appendectomy ?Z90.49 - Acquired absence of other specified parts of digestive tract (ICD- 10) H/O: hysterectomy ?Z90.710 - Acquired absence of both cervix and uterus (ICD-10) H/O splenectomy ?Z90.81 - Acquired absence of spleen (ICD-10) Family History Brother Family history of stroke Family history of hypertension Mother Family history of stroke Family history of hypertension Father Family history of cancer Social History (Updated 10/23/24 @ 00:40 by Rachelle Kimble) Within the past year, how often did you have a drink containing alcohol: never Within the past year, how many standard drinks containing alcohol did you have on a typical day: 1 or 2 Within the past year, how often did you have six or more drinks on one occasion: never Total score: 0 Score interpretation: A score less than 3 is consistent with normal alcohol consumption. Smoking status: Former smoker Non-prescribed substance use: denies use Previous occupational history: retired Highest level of school completed/degree received: high school graduate Are you now , , , , never or living with a partner: In a typical week, how many times do you talk on the telephone with family, friends, or neighbors: 3 or more times per week How often do you get together with friends or relatives: 3 or more times per week How often do you attend spiritism or sabianist services: 4 or more times per year Do you belong to any clubs or organizations such as spiritism groups unions, fraternal or athletic groups, or school groups: no Total score: 2 Score interpretation: A score of greater than or equal to 2 indicates the lowest level of social isolation. Little interest or pleasure in doing things: not at all Feeling down, depressed, or hopeless: not at all Feel stressed/tense/nervous/anxious/difficulty sleeping: not at all Do you think of yourself as: straight/heterosexual Gender Identity: female Exam Narrative Exam Narrative: Constituational: Awake/ alert, no apparent distress, thin appearing, otherwise hydrated HENMT: normocephalic, external ears normal, moist oral mucous membranes and oropharynx normal Eyes: EOMI and conjunctivae normal Neck: ROM intact Chest: inspection of chest normal Respiratory: Normal respiratory effort, clear to auscultation bilaterally Cardio: regular rate and regular rhythm GI: + Mild abdominal distention, diffuse tenderness across the mid abdominal region with guarding, slightly hyperactive bowel sounds Back: nontender MSK: ROM intact, +NVI Skin: no rashes or petechiae Neuro: no focal deficits Psych: mental status grossly normal Constitutional Vital Signs, click to edit/add: Last Vital Signs Temp 98.0 F 10/24/24 12:33 Pulse 87 10/24/24 13:53 Resp 20 10/24/24 12:33 BP 142/69 H 10/24/24 12:33 Pulse Ox 92 L 10/24/24 16:57 O2 Del Method Nasal Cannula 10/24/24 16:57 O2 Flow Rate 2 10/24/24 16:57 Course Vital Signs Vital signs: Vital Signs Temperature 97.4 F L 10/22/24 20:14 Pulse Rate 81 10/22/24 20:14 Respiratory Rate 18 10/22/24 20:14 Blood Pressure 169/84 H 10/22/24 20:14 Pulse Oximetry 96 10/22/24 20:14 Oxygen Delivery Method Room Air 10/22/24 20:14 Temperature 98.0 F 10/24/24 12:33 Pulse Rate 87 10/24/24 13:53 Respiratory Rate 20 10/24/24 12:33 Blood Pressure 142/69 H 10/24/24 12:33 Pulse Oximetry 92 L 10/24/24 16:57 Oxygen Delivery Method Nasal Cannula 10/24/24 16:57 Oxygen Delivery Flow Rate 2 10/24/24 16:57 Medical Decision Making [facility] Narrative Medical decision making narrative: Patient is a nontoxic-appearing 79-year-old female who presented to the ER today for evaluation concerns for acute onset of abdominal pain. Initial examination patient noted to have acute abdominal findings of diffuse tenderness across the mid abdominal region with guarding and some distention with hyperactive bowel sounds. Patient received initial supportive measures of IV fluids and morphine and on reevaluation she reported some improvement in discomfort. Labs showed no significant leukocytosis, anemia, thrombocytopenia. Electrolytes including renal and hepatic function stable. Normal lipase. Normal lactic. Without acute changes and troponin negative x 1. CT imaging of abdomen pelvis is pending. Care endorsed to provider Dr. Jensen (ER attending) 2200p-> to follow-up on pending imaging results and further determine dis position of patient. Medical Records Medical records reviewed: Yes I reviewed the patient's medical records Lab Data Lab results reviewed: Yes I reviewed the patient's lab results Labs: Lab Results 10/22/24 10/23/24 Range/Units 20:32 04:47 WBC 9.1 8.2 (4.0-11.0) 10^3/uL RBC 3.90 L 3.83 L (4.20-5.40) 10^6/uL Hgb 12.2 11.9 L (12.0-16.0) g/dL Hct 37.1 37.1 (36.0-48.0) % MCV 95.1 96.9 (81.0-99.0) fL MCH 31.3 31.1 (26.7-34.0) pg MCHC 32.9 32.1 (29.9-35.2) g/dL RDW 15.6 H 15.8 H (11.0-15.0) % Plt Count 445 404 (150-450) 10^3/uL MPV 11.2 11.0 (9.5-13.5) fL Neut % (Auto) 65.3 61.2 (43.0-75.0) % Lymph % (Auto) 17.9 L 21.3 (20.5-60.0) % Mineral % (Auto) 12.5 H 14.1 H (1.7-12.0) % Eos % (Auto) 2.7 2.3 (0.9-7.0) % Baso % (Auto) 1.3 0.9 (0.2-2.0) % Neut # (Auto) 6.0 5.0 (1.4-6.5) 10^3/uL Lymph # (Auto) 1.6 1.8 (1.2-3.8) 10^3/uL Mineral # (Auto) 1.1 H 1.2 H (0.3-0.8) 10^3/uL Eos # (Auto) 0.3 0.2 (0.0-0.7) 10^3/uL Baso # (Auto) 0.1 0.1 (0.0-0.1) 10^3/uL Abs Immat Gran (auto) 0.03 0.02 (0.00-0.03) 10^3/uL Imm/Tot Granulo (auto) 0.3 0.2 (0.0-0.5) % Sodium 140 137 (136-145) mmol/L Potassium 4.3 3.9 (3.5-5.1) mmol/L Chloride 105 106 (98-107) mmol/L Carbon Dioxide 25.4 25.3 (21.0-32.0) mmol/L Anion Gap 13.9 9.6 BUN 28.0 H 21.0 H (7.0-18.0) mg/dL Creatinine 1.08 H 0.87 (0.55-1.02) mg/dL Est GFR ( Amer) 59 L >60 (>=60 mL/min/1.73m^2) Est GFR (Non-Af Amer) 49 L >60 (>=60 mL/min/1.73m^2) BUN/Creatinine Ratio 25.9 24.1 Glucose 112 H 93 (74-106) mg/dL Lactate 1.5 (0.4-2.0) mmol/L Calcium 11.5 H 10.6 H (8.5-10.1) mg/dL Magnesium 2.0 (1.8-2.4) mg/dL Total Bilirubin 0.5 0.4 (0.2-1.0) mg/dL Direct Bilirubin 0.1 (0.0-0.2) mg/dL AST 13 L 12 L (15-37) U/L ALT 8 L 9 L (14-59) U/L Alkaline Phosphatase 221 H 207 H (46-116) U/L Troponin I High Sens 17.9 (4.0-51.3) pg/mL Total Protein 6.8 6.3 L (6.4-8.2) g/dL Albumin 3.9 3.5 (3.4-5.0) g/dL Globulin 2.9 2.8 g/dL Albumin/Globulin Ratio 1.3 1.3 Lipase 20.0 (16.0-77.0) U/L Discharge Plan Discharge Chief Complaint: Abdominal Pain Clinical Impression: Abdominal pain, Enteritis Patient Disposition: Admitted as Observation Discharge Date/Time: 10/22/24 23:39 Documented by User: Kun Jensen MD 10/24/24 20:07 HPI HPI - General Adult General Chief complaint: Abdominal Pain Stated complaint: SEVERE ABDOMINAL PAIN, TROUBLE BREATHING Time Seen by Provider: 10/22/24 20:20 Related Data Home Medications ?Medication ?Instructions ?Recorded ?Confirmed alprazolam 1 mg tablet 1.5 mg PO BEDTIME PRN sleep 02/08/23 10/23/24 amlodipine 5 mg tablet 5 mg PO DAILY 02/08/2310/22 potassium chloride 20 mEq 20 meq PO BID 02/08/2310/22 tablet,extended release(part/cryst) (Klor-Con M) cholecalciferol (vitamin D3) 125 125 mcg PO DAILY 07/1210/22/24 mcg (5,000 unit) capsule aspirin 81 mg chewable tablet 81 mg PO DAILY 08/10/23 10/22/24 lutein 25 mg-zeaxanthin 5 mg 1 cap PO DAILY 08/10/23 0 10/22/24 capsule rasagiline 1 mg tablet 1 mg PO DAILY 08/10/2310/22 amantadine HCl 100 mg tablet 100 mg PO BID@0700,1200 1 10/22/24 carbidopa ER 25 mg-levodopa 100 mg 1 tab PO .7am, 12pm , 5pm 04/09/24 10/22/24 tablet,extended release pantoprazole 40 mg tablet,delayed 40 mg PO BID 4 10/22/24 release hydralazine 25 mg tablet 25 mg PO Q12H 10/22/2410/22 ropinirole 0.5 mg tablet 0.5 mg PO .QHS 10/23/2410/09 sucralfate 1 gram tablet 1 g PO QID 10/23/24 10/23/24 Allergies Allergy/AdvReac Type Severity Reaction Status Date / Time Sulfa (Sulfonamide Allergy Severe Anaphylaxis Verified 10/22/24 20:20 Antibiotics) Opioid HPI Opioid Management Most Recent Opioid Data: Last Pain Scale 3 10/23/24, 09:41 Last Pain Intensity 3 10/23/24, 09:41 Last Pain Assessment 10/23/24, 00:00 Last ORT Total Score 0 10/22/24, 23:53 Last ORT Risk Category Low Risk 10/22/24, 23:53 [facility] Medical History (Updated 10/23/24 @ 08:26 by Kavon Leary MD) Visit for PT (physical therapy) Right wrist fracture ?S62.101A - Fracture of unspecified carpal bone, right wrist, initial encounter for closed fracture (ICD-10) Hypoxia ?R09.02 - Hypoxemia (ICD-10) Congestive heart failure ?I50.9 - Heart failure, unspecified (ICD-10) Weakness generalized ?R53.1 - Weakness (ICD-10) Acute UTI ?N39.0 - Urinary tract infection, site not specified (ICD-10) Acute diarrhea ?R19.7 - Diarrhea, unspecified (ICD-10) Acute kidney injury ?N17.9 - Acute kidney failure, unspecified (ICD-10) Hiatal hernia ?K44.9 - Diaphragmatic hernia without obstruction or gangrene (ICD-10) COPD (chronic obstructive pulmonary disease) ?J44.9 - Chronic obstructive pulmonary disease, unspecified (ICD-10) Parkinsons ?G20 - Parkinson's disease (ICD-10) Hypertension ?I10 - Essential (primary) hypertension (ICD-10) Surgical History History of appendectomy ?Z90.49 - Acquired absence of other specified parts of digestive tract (ICD- 10) H/O: hysterectomy ?Z90.710 - Acquired absence of both cervix and uterus (ICD-10) H/O splenectomy ?Z90.81 - Acquired absence of spleen (ICD-10) Family History Brother Family history of stroke Family history of hypertension Mother Family history of stroke Family history of hypertension Father Family history of cancer Social History (Updated 10/23/24 @ 00:40 by Rachelle Kimble) Within the past year, how often did you have a drink containing alcohol: never Within the past year, how many standard drinks containing alcohol did you have on a typical day: 1 or 2 Within the past year, how often did you have six or more drinks on one occasion: never Total score: 0 Score interpretation: A score less than 3 is consistent with normal alcohol consumption. Smoking status: Former smoker Non-prescribed substance use: denies use Previous occupational history: retired Highest level of school completed/degree received: high school graduate Are you now , , , , never or living with a partner: In a typical week, how many times do you talk on the telephone with family, friends, or neighbors: 3 or more times per week How often do you get together with friends or relatives: 3 or more times per week How often do you attend spiritism or sabianist services: 4 or more times per year Do you belong to any clubs or organizations such as spiritism groups unions, [employer] or athletic groups, or school groups: no Total score: 2 Score interpretation: A score of greater than or equal to 2 indicates the lowest level of social isolation. Little interest or pleasure in doing things: not at all Feeling down, depressed, or hopeless: not at all Feel stressed/tense/nervous/anxious/difficulty sleeping: not at all Do you think of yourself as: straight/heterosexual Gender Identity: female Exam Constitutional Vital Signs, click to edit/add: Last Vital Signs Temp 98.0 F 10/24/24 12:33 Pulse 87 10/24/24 13:53 Resp 20 10/24/24 12:33 BP 142/69 H 10/24/24 12:33 Pulse Ox 92 L 10/24/24 16:57 O2 Del Method Nasal Cannula 10/24/24 16:57 O2 Flow Rate 2 10/24/24 16:57 Course Vital Signs Vital signs: Vital Signs Temperature 97.4 F L 10/22/24 20:14 Pulse Rate 81 10/22/24 20:14 Respiratory Rate 18 10/22/24 20:14 Blood Pressure 169/84 H 10/22/24 20:14 Pulse Oximetry 96 10/22/24 20:14 Oxygen Delivery Method Room Air 10/22/24 20:14 Temperature 98.0 F 10/24/24 12:33 Pulse Rate 87 10/24/24 13:53 Respiratory Rate 20 10/24/24 12:33 Blood Pressure 142/69 H 10/24/24 12:33 Pulse Oximetry 92 L 10/24/24 16:57 Oxygen Delivery Method Nasal Cannula 10/24/24 16:57 Oxygen Delivery Flow Rate 2 10/24/24 16:57 Medical Decision Making MDM Narrative Medical decision making narrative: Patient is a nontoxic-appearing 79-year-old female who presented to the ER today for evaluation concerns for acute onset of abdominal pain. Initial examination patient noted to have acute abdominal findings of diffuse tenderness across the mid abdominal region with guarding and some distention with hyperactive bowel sounds. Patient received initial supportive measures of IV fluids and morphine and on reevaluation she reported some improvement in discomfort. Labs showed no significant leukocytosis, anemia, thrombocytopenia. Electrolytes including renal and hepatic function stable. Normal lipase. Normal lactic. Without acute changes and troponin negative x 1. CT imaging of abdomen pelvis is pending. Care endorsed to provider Dr. Jensen (ER attending) 2200p-> to follow-up on pending imaging results and further determine disposition of patient. patient again is complaining of pain and nausea after receiving morphine earlier. Given dose of zofran and 50mcg fentanyl IVP and this has help her pain. CT returned with findings of distended large and small bowel c/w enteritis. Patient and family informed. Family concerned about taking her back home tonight given the amount of pain she was in and the need for repeated doses of IV narcotics. Discussed with the hospitaist and will plan obs admission for IV hydration and management of her pain thru the night Lab Data Labs: Lab Results 10/22/24 10/23/24 Range/Units 20:32 04:47 WBC 9.1 8.2 (4.0-11.0) 10^3/uL RBC 3.90 L 3.83 L (4.20-5.40) 10^6/uL Hgb 12.2 11.9 L (12.0-16.0) g/dL Hct 37.1 37.1 (36.0-48.0) % MCV 95.1 96.9 (81.0-99.0) fL MCH 31.3 31.1 (26.7-34.0) pg MCHC 32.9 32.1 (29.9-35.2) g/dL RDW 15.6 H 15.8 H (11.0-15.0) % Plt Count 445 404 (150-450) 10^3/uL MPV 11.2 11.0 (9.5-13.5) fL Neut % (Auto) 65.3 61.2 (43.0-75.0) % Lymph % (Auto) 17.9 L 21.3 (20.5-60.0) % Mineral % (Auto) 12.5 H 14.1 H (1.7-12.0) % Eos % (Auto) 2.7 2.3 (0.9-7.0) % Baso % (Auto) 1.3 0.9 (0.2-2.0) % Neut # (Auto) 6.0 5.0 (1.4-6.5) 10^3/uL Lymph # (Auto) 1.6 1.8 (1.2-3.8) 10^3/uL Mineral # (Auto) 1.1 H 1.2 H (0.3-0.8) 10^3/uL Eos # (Auto) 0.3 0.2 (0.0-0.7) 10^3/uL Baso # (Auto) 0.1 0.1 (0.0-0.1) 10^3/uL Abs Immat Gran (auto) 0.03 0.02 (0.00-0.03) 10^3/uL Imm/Tot Granulo (auto) 0.3 0.2 (0.0-0.5) % Sodium 140 137 (136-145) mmol/L Potassium 4.3 3.9 (3.5-5.1) mmol/L Chloride 105 106 (98-107) mmol/L Carbon Dioxide 25.4 25.3 (21.0-32.0) mmol/L Anion Gap 13.9 9.6 BUN 28.0 H 21.0 H (7.0-18.0) mg/dL Creatinine 1.08 H 0.87 (0.55-1.02) mg/dL Est GFR ( Amer) 59 L >60 (>=60 mL/min/1.73m^2) Est GFR (Non-Af Amer) 49 L >60 (>=60 mL/min/1.73m^2) BUN/Creatinine Ratio 25.9 24.1 Glucose 112 H 93 (74-106) mg/dL Lactate 1.5 (0.4-2.0) mmol/L Calcium 11.5 H 10.6 H (8.5-10.1) mg/dL Magnesium 2.0 (1.8-2.4) mg/dL Total Bilirubin 0.5 0.4 (0.2-1.0) mg/dL Direct Bilirubin 0.1 (0.0-0.2) mg/dL AST 13 L 12 L (15-37) U/L ALT 8 L 9 L (14-59) U/L Alkaline Phosphatase 221 H 207 H (46-116) U/L Troponin I High Sens 17.9 (4.0-51.3) pg/mL Total Protein 6.8 6.3 L (6.4-8.2) g/dL Albumin 3.9 3.5 (3.4-5.0) g/dL Globulin 2.9 2.8 g/dL Albumin/Globulin Ratio 1.3 1.3 Lipase 20.0 (16.0-77.0) U/L Discharge Plan Discharge Chief Complaint: Abdominal Pain Clinical Impression: Abdominal pain, Enteritis Patient Disposition: Admitted as Observation Discharge Date/Time: 10/22/24 23:39
[2024-10-22] MEDS: 0.9 % SODIUM CHLORIDE 1,000 ML 100 ML IV (20:38)
[2024-10-22] MEDS: MORPHINE SULFATE 2 MG/ML SYRINGE IV (20:38)
--- NOTE | 2024-10-22 20:47 | ECG_ITS ---
[facility] Test Date: 2024-10-22 Pat Name: NANCY KHAN Department: Room: - Gender: Female Plugman: : 1945 Requested By: [id number] Order Number: [id number] Reading MD: ANDREW MARISCAL M.D. Measurements Intervals [place] Rate: 91 P: -[id number] IA: 135 QRS: 10 QRSD: 90 T: 60 QT: 374 QTc: 422 Interpretive Statements NORMAL SINUS RHYTHM 3434 Septal myocardial infarction, age undetermined 9150 abnormal ECG Compared to ECG 08/13/2024 12:15:56 No significant changes Electronically Signed On 10-22-2024 23:09:01 EDT by ANDREW MARISCAL M.D.
[2024-10-22 20:57] LABS: Basophils Absolute Auto 0.1 10^3/uL (0.0-0.1); Basophils Percent Auto 1.3 % (0.2-2.0); Eosinophils Absolute Auto 0.3 10^3/uL (0.0-0.7); Eosinophils Percent Auto 2.7 % (0.9-7.0); Hematocrit 37.1 % (36.0-48.0); Hemoglobin 12.2 g/dL (12.0-16.0); Immature Granulocytes Abs Auto 0.03 10^3/uL (0.00-0.03); Immature Granulocytes Pct Auto 0.3 % (0.0-0.5); Lymphocytes Absolute Auto 1.6 10^3/uL (1.2-3.8); Lymphocytes Percent Auto 17.9 % (20.5-60.0); Mean Corpuscular HGB Conc 32.9 g/dL (29.9-35.2); Mean Corpuscular Hemoglobin 31.3 pg (26.7-34.0); Mean Corpuscular Volume 95.1 fL (81.0-99.0); Mean Platelet Volume 11.2 fL (9.5-13.5); Monocytes Absolute Auto 1.1 10^3/uL (0.3-0.8); Monocytes Percent Auto 12.5 % (1.7-12.0); Neutrophils Percent Auto 65.3 % (43.0-75.0); Platelet Count 445 10^3/uL (150-450); Red Cell Distribution Width 15.6 % (11.0-15.0); White Blood Count 9.1 10^3/uL (4.0-11.0)
[2024-10-22 21:13] LABS: Lactate/Lactic Acid 1.5 mmol/L (0.4-2.0)
[2024-10-22 21:14] LABS: Alanine Aminotransferase 8 U/L (14-59); Albumin Globulin Ratio 1.3; Albumin Level 3.9 g/dL (3.4-5.0); Alkaline Phosphatase 221 U/L (46-116); Anion Gap 13.9; Aspartate Amino Transferase 13 U/L (15-37); BUN Creatinine Ratio 25.9; Bilirubin Total 0.5 mg/dL (0.2-1.0); Calcium 11.5 mg/dL (8.5-10.1); Carbon Dioxide 25.4 mmol/L (21.0-32.0); Chloride 105 mmol/L (98-107); Estimated GFR (African America 59 (>=60 mL/min/1.73m^2); Estimated GFR (Non-African Ame 49 (>=60 mL/min/1.73m^2); Globulin 2.9 g/dL; Glucose 112 mg/dL (74-106); Potassium 4.3 mmol/L (3.5-5.1); Sodium 140 mmol/L (136-145); Total Protein 6.8 g/dL (6.4-8.2); Troponin I High Sensitivity 17.9 pg/mL (4.0-51.3)
[2024-10-22] MEDS: FENTANYL CITRATE/PF 100 MCG/2 ML VIAL 50 MCG IV (22:13)
[2024-10-22] MEDS: ONDANSETRON PF 4 MG/2 ML VIAL IV (22:13)
[2024-10-22 22:31] VITALS: O2SAT 96
--- NOTE | 2024-10-22 22:31 | PC.NURSE ---
Patient was medicated for pain with Fentanyl. 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 She was sleeping, obvious rise and fall of chest observed. Patient is placed on 3L oxygen per n/c and sp02 recovers to 95%. Daughter remains at bedside.
--- OUTSIDE RECORDS SUMMARY | 2024-10-22 23:50 | XMS_ITS | CCD ---
Author Organization [facility] Care Team Providers Care Iron Pourer Name Role Phone SELF, REFERRED Unavailable Unavailable SELF, REFERRED Unavailable Unavailable BRAMOS, ATHANASIOS Unavailable Unavailable SUPA BRANCH Unavailable Unavailable [place] Unavailable Unavailable BRAMOS, ATHANASIOS Unavailable Unavailable [place] Unavailable Unavailable SUPA BRANCH Unavailable Unavailable PHYSICIAN, DEFAULT Unavailable Unavailable PHYSICIAN, [...] Unavailable HOY ., DR MENSAH Consulting Unavailable HOChirag ., DR MENSAH Primary Care Unavailable ZIEBFESTUS, [...] Unavailable MD Kavon Sams Primary Care Provider [phone] DIXIE Gill Attending Provider [phone] Kavon Sams Primary Care Physician Rod Yu Unavailable Unavailable Kavon Sams MD Unavailable Kavon Sams Md Primary Care Provider Kavon Sams Md Primary Care Provider Andrae HERRERA, Andrius Pham Attending Unavailable Gicamilararuma HERRERA, Andrius Valla Attending Unavailable Andrae HERRERA, Andrius Valla Attending Unavailable Andrae HERRERA, Andrius Vyterlinda Attending Unavailable Andrae HERRERA, Andrius Vyterlinda Attending Unavailable Kavon Sams MD Primary Care Provider [phone] Kavon Sams MD Attending Provider [phone] Sae Morfin Attending Unavailable Navjot, Sae Attending Unavailable Augie Sidhu Attending Unavailable Cooper Mao Unavailable Unavailable Henrry, Christopher Attending Unavailable Henrry, Christopher Attending Unavailable SIDRA, DAVID Referring Unavailable SIDRA, DAVID Referring Unavailable SIDRA, DAVID Attending Unavailable WILIAN, CHERIE Attending Unavailable WILIAN, CHERIE Referring Unavailable WILIAN, CHERIE Attending Unavailable WILIAN, CHERIE Referring Unavailable WILIAN, CHERIE Attending Unavailable SIDRA, DAVID Referring Unavailable SIDRA, DAVID Referring Unavailable Meghan Ramachandran DO Attending Provider [phone] VERENA HUTSON Attending Unavailable VERENA HUTSON Attending Unavailable VERENA HUTSON Attending Unavailable JOSH THIBODEAUX Referring Unavailable VERENA HUTSON Admitting Unavailable VERENA HUTSON Attending Unavailable JOE PRECIADO Attending Unavailable SOPHIE LEON Attending Unavailable PocSupa daly Attending Unavailable PocSupa daly Referring Unavailable PocSupa daly Admitting Unavailable Demarco Beaver Attending Unavailable Kavon Sams MD Attending Provider [phone] Meghan Ramachandran DO Attending Provider Damaso Charlton DO Emergency Provider Kavon Sams MD Primary Care Provider [phone] Lauro Garvey MD Admit Provider [phone] Lauro Garvey MD Attending Provider Tima HERRERA, Mariajose Monae Attending Provider Dwight HERRERA, Mago Other Provider Fer HERRERA, Ramsey Other Provider Didi Navarro APRN Other Provider Belrafa DO, Dani Segovia Other Provider Jolynn HERRERA, Pa Wilkins Other Provider Tony Fuentes DO Other Provider Jolynn HERRERA, Pa Wilkins Admit Provider Jolynn HERRERA, Pa Wilkins Attending Provider [phone] Harsh RN, Gloria Other Provider Unavailable Gila RN, Andra Other Provider Unavailable Shanice RN, Kimberlyn Other Provider Unavailable Hina RN, Tequila Other Provider Unavailable Alex RN, Yvrose Other Provider Unavailable Trish Christensen MD Other Provider Barney Quan DO Other Provider Margarita HERRERA, Clyde Other Provider Connor Dumont DO Other Provider Evleio Smith MD Other Provider Faith Mccoy MD Other Provider Yulissa Shelby DO Other Provider Ludwin Cuadra MD Other Provider Unavailable Baylee Ho APRN Other Provider Carie Blunt MD Other Provider [phone] Easton Galeano MD Other Provider Yanique Echevarria MD Other Provider Unavailable Bobby Luz MD Other Provider Yulissa Lemon DO Other Provider Paxton Sparks MD Other Provider Ulysses Valenzuela MD Other Provider Mumtaz LINING IRONER-C, Meghana J Other Provider Kelvin RIVERA, Sofia Monae Other Provider Unavailable Ton Conti MD Other Provider Jordan Ortega MD Other Provider Abner Lazar MD Other Provider Giana HERRERA, Nikko Other Provider Unavailable Jair Mejia MD Other Provider Carolina Mccoy DO Other Provider Hema DOTy Other Provider Katarzyna Major APRN Other Provider Sanjay DOAndrew Other Provider Tima HERRERA, Mariajose Monae Other Provider Ebony Scott APRN Other Provider Sameera Diaz APRN Other Provider Amanda HERRERA, Haile Other Provider Unavailable Lauro Garvey MD Other Provider Ambrosio DO, Niranjan T Other Provider Dilan DOAristeo Other Provider Cady HERRERA, Leonardo Mark Other Provider Addy Johns MD Other Provider Haydee Cornejo APRN Other Provider Unavailable Joe Coleman MD Other Provider Awais Shafer MD Other Provider Ramsey Dillon MD Other Provider Ludwin Barry MD Other Provider Bogdan Harris MD Other Provider Anaid Borrero APRN Other Provider Gi Liz APRN Other Provider Aliya SAM, Lanny Other Provider Unavailable Alyson [place] Other Provider Unavailable Joshua PhD, Jose R Other Provider [phone] Christina Vasquez DO Other Provider Dani HERRERA, Ramiro Other Provider [phone] Maira BRIGGS, Baljeet Monae Other Provider Haydee Farris APRN Other Provider [phone] Franklin LINING IRONER-C, Cathie Martin Other Provider [phone] Manuel G[employer] DOCUMENTS LIBRARIAN-DIETARY SUPERVISOR-C, Shaun Carrillo Other Provider [phone] Dontrell HERRERA, Henrry Other Provider Renny HERRERA, Naye Gates Other Provider [phone] Ricky LINING IRONER-C, Shayy Segovia Other Provider Unavail able Breanna BRIGGS, Ashwin Davis Other Provider [phone] Lyle HERRERA, Dale Monae Other Provider Demarco Segal DO Other Provider [phone] POCOS, SUPA Davis Attending Unavailable POCOS, SUPA Davis Referring Unavailable POCOS, SUPA Davis Referring Unavailable POCOS, SUPA Davis Referring Unavailable POCOS, SUPA Davis Attending Unavailable POCOS, SUPA Davis Referring Unavailable CATHIE GILL Attending Unavailable CATHIE GILL Attending Unavailable POCOS, SUPA Davis Attending Unavailable SHAUN JACKSON Attending Unavailable POCOS, SUPA Davis Referring Unavailable POCOS, SUPA Davis Referring Unavailable POCOS, SUPA Davis Attending Unavailable CATHIE GILL Referring Unavailable CATHIE GILL Attending Unavailable Kavon Sams M Attending Unavailable Flaquita, Kavon M Admitting Unavailable Hochirag, Kavon M Attending Unavailable Flaquita, Kavon M Admitting Unavailable Lauro Garvey Admitting Unavailable Flaquita, Kavon M Primary Care Unavailable Mariajose Alfred Attending Unavailable Mago Quintanilla Consulting Unavailable Ramsey Monroe Consulting Unavailable Didi Navarro Consulting Unavailable Dani Bah Jr Consulting UnavailPa Bowser Consulting Unavaila Tony Navarro Consulting Unavailable Pa Neil Admitting Unavaila Ramsey Blank Attending Unavailable Kavon Sams Primary Care Unavailable Gloria House Consulting Unavailable Andra Uriostegui Consulting Unavailable Kimberlyn Prasad Consulting Unavailable Tequila Santamaria Consulting Unavailable Yvrose Johnson Consulting Unavailable Trish Christensen Consulting Unavailable Barney Quan Consulting Unavailable Clyde Avila Consulting Unavailable Connor Dumont Consulting UnavailEvelio Hair Consulting Unavailable Faith Mccoy Consulting Unavailable Yulissa Shelby Consulting Unavailable Ludwin Cuadra Consulting Unavailable Baylee Ho Consulting UnavailCarie Nixon Consulting Unavailable Easton Galeano Consulting Unavailable Yanique Echevarria Consulting Unavailable Bobby Luz Consulting Unavailable Yulissa eLmon Consulting Unavailable Paxton Sparks Consulting Unavailable Ulysses Valenzuela Consulting Unavailable Meghana Pandya Consulting Unavailable Sofia Warern Consulting Unavailable Ton Conti Consulting Unavailab Jordan Gee Consulting Unavailable Abner Lazar Consulting Unavailable Nikko Faria Consulting Unavailable Jair Mejia Consulting Unavailable Carolina Mccoy Consulting Unavailable Ty Garrido Consulting Unavailable Katarzyna Major Consulting Unavailable Andrew Grace Consulting Unavailable Mariajose Alfred Consulting Unavailable Ebony Scott Consulting Unavailable Sameera Diaz Consulting Unavailable Haile Patel Consulting Unavailable Lauro Garvey Consulting Unavailable Niranjan Ambrosio Consulting Unavailable Aristeo Kong Consulting Unavailable Leonardo Lazar Consulting Unavailable Addy Johns Consulting Unava Haydee Torres Consulting Unavailable Joe Coleman Consulting Unavailable Awais Shafer Consulting Unavailable Ramsey Dillon Consulting Unavailable Ludwin Barry S Consulting Unavailable Bogdan Harris Consulting Unavailable Anaid Borrero Consulting Unavailable Bolzamiguelangel-AnitraGi Consulting Unavaila Lanny Donald Consulting Unavailable [place] Consulting Unavailable Jose R Lewis Consulting Unavailable Christina Vasquez Consulting Unavailable Ramiro Louise Consulting Unavailable Baljeet Rao Consulting Unavailab Tony Coombs Consulting Unavailable Haydee Farris Consulting Unavailable Cathie Gill Consulting Unavailable Shaun Jackson Consulting Unavailable Henrry Jon Consulting Unavailable Naye Lawson Consulting Unavailable Shyay García Consulting Unavailable Ashwin Carlos Consulting Unavailable Dale Alvarenga II Consulting UnavailDemarco Mtz Consulting Unavailable Meghan Ramachandran Admitting Unavailable Meghan Ramachandran Attending Unavailable Allergies Allergy Classification Reported Allergen(s) Allergy Type Date of Onset Reaction(s) Facility Sulfonamides (antibiotic) (1 source) Sulfonamides (Antibiotic); Translations: [sulfa drugs] Drug Allergy Unknown (qualifier value) [facility] (8 sources) Sulfonamides (Antibiotic); Translations: [SULFA (SULFONAMIDE ANTIBIOTICS)] Drug allergy (disorder) 4 AOF, Difficulty Breathing [facility] (1 source) Cephalexin Drug Allergy 2 [facility] (10 sources) Sulfonamides (Antibiotic); Translations: [sulfa drugs] Drug allergy Unknown (qualifier value) [facility] (16 sources) Naproxen; Translations: [NAPROXEN SODIUM] Drug Allergy 4 Unknown [facility] (20 sources) Sulfonamides (Antibiotic) Drug Allergy 4 Anaphylaxis [facility] (1 source) traZODone; Translations: [TRAZODONE] Drug Allergy 4 [facility] (4 sources) Sulfamethoxazole; Translations: [sulfamethoxazole ] Drug Allergy 5 Difficulty Breathing [facility] (10 sources) Trimethoprim; Translations: [trimethoprim] Drug Allergy 5 Shortness of breath [facility] (1 source) Sulfonamides (Antibiotic) Drug allergy (disorder) 5 [facility] (1 source) Unable to Assess Drug allergy (disorder) 3 [facility] Medications Current Medications Medication Drug Class(es) Dates Sig (Normalized) Sig (Original) acetaminophen 500 mg oral tablet (17 sources) Start: 09-05-2024 take 1 tablet by mouth every eight hours Acetaminophen 500 mg Tablet Active 500 MG PO Q8H 0 September 05, 2024 12:00am Start: 09-18-2023 take 1 tablet by clyde th every six hours as needed [facility] Acetaminophen [facility] 500 MG tablet Take 500 mg by mouth every 6 (six) hours if needed 09/18/2023 Active acetaminophen 325 mg / oxyCODONE hydrochloride 5 mg oral tablet (11 sources) Opioid Agonist Start: 07-25-2024 oxyCODONE-acet aminophen (Percocet) 5-325 MG tablet 07/25/2024 Active Start: 07-24-2024 End: 07-27-2024 take 1 tablet by mouth every six hours as needed for pain oxyCODONE-acetaminophen (Percocet) 5-325 MG tablet TAKE 1 TABLET BY MOUTH EVERY 6 HOURS NEEDED FOR PAIN (8-10) FOR 3 DAYS 07/25/2024 Active ALPRAZolam 1 mg oral tablet (20 sources) Benzodiazepine Start: 02-10-2020 take 1 tablet by mouth once daily at bedtime as needed for sleep Alprazolam (Xanax) 1 mg tablet Active 1 MG PO Daily at bedtime as needed for sleep August 20, 2024 12:00am Comment on above: Take 1 mg by mouth a t bedtime as needed. amLODIPine 5 mg oral tablet (20 sources) [...] Take 10 mg by mouth once daily. ascorbic acid 1000 mg oral tablet (3 sources) Vitamin C Start: 08-21-2024 take 1 g by mouth once daily Ascorbic Acid (Vitamin C) 1,000 mg capsule Active 1 GM PO Daily August 21, 2024 12:00am aspirin 81 mg chewable tablet (20 sources) Platelet Aggregation Inhibitor, Nonsteroidal Anti-inflammatory Drug Start: 08-21-2024 take 1 tablet by mouth once daily Aspirin 81 mg tablet,chewable Active 81 MG PO Daily August 21, 2024 12:00am Start: 02-10-2020 take 1 tablet by mouth once da aiden aspirin 81 mg oral tablet 81 mg = 1 tab(s), Oral, Daily Start Date: 02/10/20 Status: Ordered Start: 06-18-2014 take 1 tablet by mouth once da aiden aspirin, enteric coated (ASPIR-LOW) 81 mg EC tablet Take 1 tablet by mouth once daily. 0 06/18/2014 Active Comment on above: Take 1 tablet by clyde th once daily. Calcium Carbonate-Vit D-Min (Calcium 600+D Plus Minerals) 600-400 MG-UNIT tablet (16 sources) Calcium Carbonate-Vit D-Min (Calcium 600+D Plus Minerals) 600-400 MG-UNIT tablet 1 (one) time each day at the same time Active carbidopa 10 mg / levodopa 100 mg oral tablet (20 sources) Aromatic Amino Acid Decarboxylation Inhibitor, Aromatic Amino Acid Start: 08-21-2024 take 1 tablet by mouth three times daily Carbidopa-Levodo pa (Sinemet) 10-100 mg tablet Active 1 TAB PO Three times daily August 21, 2024 12:00am Start: 01-14-2024 End: 03-04-2024 take 1 tablet by mouth three times daily carbidopa-levodopa CR (Sinemet CR) 25-100 MG ER tablet TAKE 1 TABLET BY MOUTH 3 TIMES A DAY (7AM, 12PM AND 5PM) 06/06/2024 Active Start: 01-02-2024 End: 01-14-2024 take 1 [...] day(s), # 10 cap(s), Refills(s) 0, Pharmacy: [facility]/pharmacy #[id number], 167, cm, 08/03/24 19:04:00 EST, Height/Length Dosing, 54.2, kg, 08/03/24 19:04:00 EST, Weight Dosing Start Date: 08/03/24 Stop Date: 08/08/24 Status: Ordered Start: 06-23-2023 End: 06-28-2023 take 1 capsule by mouth three times daily Keflex 500 mg Cap 500 mg = 1 cap(s), Oral, TID, X 5 day(s), # 15 cap(s), Refills(s) 0, Pharmacy: [facility]/pharmacy #[id number], 167, cm, 06/23/23 1:52:00 EST, Height/Length Dosing, 56.3, kg, 06/23/23 1:52:00 EST, Weight Dosing Start Date: 06/23/23 Stop Date: 06/28/23 Status: Ordered cholecalciferol 0.125 mg oral capsule (18 sources) Vitamin D Start: 08-21-2024 take 1 capsule by mouth once daily Cholecalciferol (Vitamin D3) 125 mcg (5,000 unit) capsule Active 125 MCG PO Daily August 21, 2024 12:00am take 1 tablet by mouth once alex y Cholecalciferol, Vitamin D3, (D3 DOTS) 2,000 unit tab Take 2,000 Units by mouth once daily. Active Comment on above: Take 2,000 Units by mouth once daily. ciprofloxacin 500 mg oral tablet (10 sources) Quinolone Antimicrobial Start: End: take 1 tablet by mouth twice daily Cipro 500 mg Tab 500 mg = 1 tab(s), Oral, BID, # 14 tab(s), Refills(s) 0, Pharmacy: [facility]/pharmacy #[id number], 167, cm, 07/26/24 16:07:00 EST, Height/Length Dosing, 54, kg, 07/26/24 16:07:00 EST, Weight Dosing Start Date: 07/26/24 Status: Ordered Start: 02-25-2020 Cipro 500 mg T ab See Instructions, Take 1 tab day prior to procedure and 1 tab day of procdure - afterwards, # 2 tab(s), Refills(s) 0, [id number] 167, cm, 02/10/20 14:06:00 EDT, [...] Oral, Daily Start Date: 02/10/20 Status: Ordered hydrALAZINE hydrochloride 50 mg oral tablet (7 sources) Arteriolar Vasodilator Start: 09-15-2024 take 1 tablet by mouth twice daily at mealtime hydrALAZINE (Apresoline) 50 MG tablet TAKE 1 TABLET BY MOUTH TWICE A DAY WITH FOOD FOR 30 DAYS 09/15/2024 Active Start: 08-25-2024 End: 10-01-2024 take 1 tablet by mouth in the morning hydrALAZINE (Apresoline) 25 MG tablet Take 25 mg by mouth in the morning and 25 mg before bedtime. 08/25/2024 10/01/2024 Discontinued hydroCHLOROthiazide 25 mg oral tablet (2 sources) Thiazide Diuretic Start: 08-13-2024 End: 08-13-2025 take 1 tablet by mouth in the morning hydroCHLOROthiazide (HYDRODiuril) 25 MG tablet Take 25 mg by mouth in the morning. 08/13/2024 08/13/2025 Active lisinopril 40 mg oral tablet (10 sources) Angiotensin Converting Enzyme Inhibitor Start: 08-13-2024 End: 08-13-2025 take 1 tablet by mouth in the morning lisinopril 40 MG tablet Take 40 mg by mouth in the morning. 08/13/2024 08/13/2025 Active End: 07-30-2024 take 1 tablet by mouth once daily lisinopril 20 MG tablet Take 1 tablet by mouth Daily 07/30/2024 Discontinued lutein 25 mg / zeaxanthin 5 mg oral capsule (5 sources) Start: 08-21-2024 Lutein-Zeaxant hin 25-5 MG capsule 1 capsule 08/21/2024 Active Start: 08-21-2024 take 1 capsule by mo uth once daily Lutein-Zeaxanthin 25-5 mg capsule Active 1 CAP PO Daily August 21, 2024 12:00am metoprolol tartrate 100 mg oral tablet (20 sources) beta-Adrenergic Ayo End: 10-17-2023 take 1 tablet by mouth in the morning metoprolol tartrate (Lopressor) 100 MG tablet Take 100 mg by mouth in the morning and 100 mg before bedtime. Active Comment on above: Take 100 mg by mouth twice [place] [facility] [place] Start: 02-10-2020 Mis Medication calcium +D3 Start Date: 02/10/20 Status: Ordered Mis. Devices (Platform Walker Attachment) misc (6 sources) Start: 09-10-2024 Misc. Devices (Platform Walker Attachment) [facility] [place] Indications: Right wrist pain , Other closed intra-articular fracture of distal end of right radius with routine healing, subsequent encounter 1 Device Daily Patient requires RIGHT Platform for FWW d/t R wrist Fx 1 each 09/10/2024 Active Multivitamin preparation (15 sources) MULTIVITAMIN (VITAMIN DAILY ORAL) Take by mouth once daily. Active MULTIVITAMIN ( TAMIN DAILY ORAL) Take by mouth once daily. 0 Active Comment on above: Take by mouth once d aily. Multivitamin tablet (3 sources) Start: take 1 tablet by mouth once daily Multivitamin tablet Active 1 TAB PO Daily August 21, 2024 12:00am omeprazole 20 mg delayed release oral capsule (16 sources) Proton Pump Inhibitor Start: 4 take 1 capsule by mouth before mealtime omeprazole (PriLOSEC) [address] capsule Take 20 mg by mouth in the morning. Take before meals. 09/11/2023 Active pantoprazole 40 mg delayed release oral tablet (20 sources) Proton Pump Inhibitor Start: 5 take 1 tablet by mouth once daily in the morning Pantoprazole 40 mg tablet,delayed release (DR/EC) Active 40 MG PO Every morning August 21, 2024 12:00am Start: 08-11-2024 take 1 tablet by clyde th twice daily Pantoprazole [address] Tab 40 mg = 1 tab(s), Oral, BID, Refills(s) 0, Indigestion Start Date: 08/11/24 Status: Ordered phenazopyridine hydrochloride 200 mg delayed release oral tablet (16 sources) Start: 09-07-2023 phenazopyridin e (Pyridium) 200 [...] with meals. 06/30/2023 Active Start: 02-10-2020 take 1 tablet by clyde th twice daily potassium chloride 20 mEq ER [...] daily. Active take 2 tablets by mo ut in the morning potassium chloride CR (Klor-Con) 10 MEQ ER tablet Take 20 mEq by mouth in the morning and 20 mEq before bedtime. Active Comment on above: Take 20 mEq by mouth once daily. Take 1 tablet by clyde every 12 hours. rasagiline 1 mg oral tablet (20 sources) Monoamine Oxidase Inhibitor Start: 07-20-2023 rasagiline (AZILECT) 1 mg tab Take by mouth. 07/20/2023 Active Comment on above: Take by mouth. rOPINIRole 0.5 mg oral tablet (20 sources) Nonergot Dopamine Agonist Start: 09-15-2024 take 1 tablet by mouth at bedtime rOPINIRole (Requip) 0.5 MG tablet Take 0.5 mg by mouth at bedtime 09/15/2024 Active Start: 09-13-2023 rOPINIRole (RE QUIP) 0.25 mg tablet Reduce to 2 tablets, twice/day. After a week, reduce it to 1 tablet in morning and 2 tabs at night. After a week, reduce to only 2 tabs at night. After a week, reduce it to 1 tab at night. Continue on that dose thereafter. 70 tablet 2 09/13/2023 Active Start: 09-13-2023 End: 10-01-2024 take 1 tablet by mouth at bedtime rOPINIRole (Requip) 0.25 MG tablet Take 0.25 mg by mouth at bedtime 09/13/2023 10/01/2024 Discontinued Start: 09-13-2023 take 1 tablet by clyde once daily at bedtime Ropinirole 0.25 mg Tablet Active 0.25 MG PO Daily at bedtime 0 August 25, 2024 12:00am Comment on above: Reduce to 2 tablets, twice/day. After a week, reduce it to 1 tablet in morning and 2 tabs at night. After a week, reduce to only 2 tabs at night. After a week, reduce it to 1 tab at night. Continue on that dose thereafter. Rx Discharge Order Notice (1 source) Start: 09-06-19 Rx Discharge Order Notice Active 1 ea miscellaneous Once September 05, 2024 12:00am spironolactone 50 mg oral tablet (9 sources) Aldosterone Antagonist Start: 07-22-19 take 1 tablet by mouth once daily spironolactone (Aldactone) 50 MG tablet TAKE 1 TABLET BY MOUTH EVERY DAY FOR 3 DAYS 07/22/2024 Active sucralfate 1000 mg oral tablet (10 sources) Aluminum Complex Start: 08-12-19 take 1 tablet by mouth once daily sucralfate 1 g Tab 1 gm = 1 tab(s), Oral, Daily, Refills(s) 0 Start Date: 08/11/24 Status: Ordered Start: 07-10-2024 take 1 tablet by clyde four times daily sucralfate (Carafate) 1 g tablet TAKE 1 TABLET BY MOUTH 4 TIMES A DAY ON AN EMPTY STOMACH FOR 7 DAYS 07/10/2024 Active UNABLE TO FIND (16 sources) UNABLE TO FIND H ANDBRENNENP STACIARD Active Vitamin D (1 source) Start: 08-11-2024 Vitamin D Refi lls(s) 0 Start Date: 08/11/24 Status: Ordered zinc gluconate 50 mg oral ta blet (5 sources) Start: 08-21-2024 zinc gluconate 50 MG tablet Daily 08/21/2024 Active Completed/Discontinued Medications Medication Drug Class(es) Dates Sig (Normalized) Sig (Original) acetaminophen 325 mg / HYDROcodone bitartrate 5 mg oral tablet (4 sources) Opioid Agonist Start: 09-25-2024 End: 10-02-2024 take 1 tablet by mouth every six hours for pain, then take 2 tablets by mouth every six hours for pain HYDROcodone-aceta minophen ([place]) 5-325 MG tablet Indications: Closed fracture of superior ramus of left pubis, initial encounter (CMS/[facility]) May take 1 tablet by mouth every 6 (six) hours if needed for severe pain. May also take 2 tablets every 6 (six) hours if needed for severe pain. Do all this for 7 days. 30 tablet 09/25/2024 10/02/2024 Start: 08-12-2024 [place] 325 mg-5 mg oral tablet See Instructions, for pain, 30 tab(s), Refill(s) 0, 1 - 2 po q4-6h prn pain Dx: S52.501D Duration: 7 days, [facility]/pharmacy #[id number], 167, cm, 08/07/24 6:28:00 EST, Height/Length Dosing, 54.2, kg, 08/07/24 6:28:00 EST, Weight Dosing Start Date: 08/12/24 Status: Ordered amantadine hydrochloride 100 mg oral tablet (20 sources) Influenza A M2 Protein Inhibitor Start: 10-22-2023 End: 10-14-2024 take 1 tablet by mouth three times daily amantadine HCl (SYMMETREL) 100 mg tablet Indications: Parkinson's disease with dyskinesia and fluctuating manifestations (HCC) Take 1 tablet by mouth three times a day. With each dose of sinemet. 270 tablet 07/16/2024 10/07/2024 Discontinued Start: 10-22-2023 End: 11-07-2024 take 1 tablet [...] tablet 2 10/17/2023 10/18/2023 Discontinued (Dosage adjustment) Calcium Carbonate (7 sources) End: 10-17-2023 CALCIUM CARBONATE (CALCIUM 6 00 ORAL) Take by mouth twice daily. 0 [...] Take 800 mg by mouth once daily. gabapentin 300 mg oral capsule (20 sources) Anti-epileptic Agent Start: 08-21-2024 End: 08-25-2024 take 1 capsule by mouth three times daily Gabapentin 300 mg capsule Discontinued 300 MG PO Three times daily August 21, 2024 12:00am August 25, 2024 12:12pm Start: 07-30-2023 take 1 capsule by mo ut once daily in the evening gabapentin 300 mg Cap 300 mg = 1 cap(s), Oral, qPM, Refills(s) 0 Start Date: 08/11/24 Status: Ordered Comment on above: TAKE 1 CAPSULE BY MO UTH ONCE DAILY X3DAYS, 1 CAPSULE TWICE DAILY X3DAYS THEN 1 CAPSULE 3 TIMES DAILY hydroCHLOROthiazide 25 mg / lisinopril 20 mg oral tablet (20 sources) Thiazide Diuretic, Angiotensin Converting Enzyme Inhibitor Start: 2019 End: 2024 take 1 tablet by mouth once daily Lisinopril-Hydroc hlorothiazide 20-25 mg tablet Discontinued 1 TAB PO Daily August 21, 2024 12:00am August 25, 2024 12:12pm Comment on above: Take 1 tablet by [facility] once daily. meropenem 1000 mg injection (2 sources) Penem Antibacterial Start: 2024 End: 2024 take 1 g intravenously every twelve hours Meropenem 1 gram Recon Soln Discontinued 1 GM IV Q12H 0 1 August 25, 2024 12:00am September 05, 2024 9:01am OMEGA-3 FATTY ACIDS/FISH OIL (OMEGA 3 FISH OIL ORAL) (7 sources) End: 2023 OMEGA-3 FATTY ACIDS/FISH OIL (OMEGA 3 FISH [...] 1,200 mg by clyde th twice daily. pravastatin sodium 20 mg oral tablet (20 sources) HMG-CoA Reductase Inhibitor Start: 02-10-20 End: 08-26-19 take 1 tablet by mouth once daily Pravastatin 20 mg tablet Discontinued 20 MG PO Daily August 21, 2024 12:00am August 25, 2024 12:12pm Comment on above: Take 20 mg by mouth once daily. QUEtiapine 25 mg oral tablet (2 sources) Atypical Antipsychotic Start: 08-26-19 End: 09-06-19 take 1 tablet by mouth once daily at bedtime Quetiapine 25 mg Tablet Discontinued 25 MG PO Daily at bedtime 0 August 25, 2024 12:00am September 05, 2024 9:01am Problems Active Problems Problem Classification Problem Date Documented Date Episodic/Chronic Abdominal pain (6 sources) Unspecified abdominal pain; Translations: [Pain in pelvis] Onset: 03-29-2022 Episodic Acute and unspecified renal failure (5 sources) Acute renal failure syndrome; Translations: [Acute kidney failure, unspecified] Onset: 08-20-2024 08-21-2024 Episodic Administrative/social admission (3 sources) Other reduced mobility; Translations: [Impaired mobility and activities of daily living] Onset: 08-25-2024 08-26-2024 Episodic Anxiety disorders (7 sources) Anxiety disorder, unspecified; Translations: [Anxiety] Onset: 08-11-2017 08-22-2024 Chronic Anxiety disorders (1 source) Organic anxiety [...] Onset: 08-11-2017 Episodic Fracture of upper limb (11 sources) Closed fracture of distal end of radius; Translations: [Unspecified fracture of the lower end of unspecified radius, initial encounter for closed fracture] Onset: 07-24-2024 Episodic Hypertension with complications and secondary hypertension (1 source) Hypertensive heart disease with heart failure; Translations: [HTN HEART DISEASE W/HEART FAIL] Onset: 10-12-2022 Chronic Miscellaneous mental health disorders (16 sources) Primary insomnia; Translations: [Primary insomnia] Onset: [...] (6 sources) Kidney disease 02-10-2020 Episodic Other eye disorders (1 source) Degenerative disorder of eye; 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, bilateral eye] 09-13-2023 Chronic Other eye disorders (1 source) Degenerative myopia with other maculopathy, bilateral eye; 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, bilateral eye] Onset: 09-13-2023 Chronic Other fractures (6 sources) Fracture of superior pubic ramus; Translations: [Fracture of superior rim of left pubis, initial encounter for closed fracture] 09-03-2024 Episodic Other fractures (2 sources) Fracture of superior rim of left pubis, initial encounter for closed fracture; Translations: [Closed fracture of pubis] Onset: 08-25-2024 09-05-2024 Episodic Other hereditary and degenerative nervous system conditions (16 sources) Intention tremor; Translations: [Other specified forms of tremor] Onset: 10-25-2023 10-25-2023 Chronic Other hereditary and degenerative nervous system conditions (20 sources) Restless legs; Translations: [Restless legs syndrome] Onset: 10-25-2023 10-25-2023 Chronic Other hereditary and degenerative nervous system conditions (18 sources) Dyskinesia; Translations: [Dystonia, unspecified] Onset: 10-25-2023 [...] disease 02-10-2020 Episodic Other nervous system disorders (16 sources) Neuropathy; Translations: [Polyneuropathy, unspecified] Onset: 09-13-2023 09-13-2023 Chronic Other nervous system disorders (18 sources) Carpal tunnel syndrome of right wrist; Translations: [Carpal tunnel syndrome, right upper limb] Onset: 10-25-2023 10-25-2023 Chronic Other nervous system disorders (18 sources) Chronic pain; Translations: [Other chronic pain] Onset: 10-25-2023 10-25-2023 Chronic Other nervous system disorders (1 source) Polyneuropathy, unspecified; Translations: [Neuropathy] Onset: 09-13-2023 Chronic Other nervous system disorders (2 sources) Metabolic encephalopathy; Translations: [Metabolic encephalopathy] 08-21-2024 Chronic Other nervous system disorders (4 sources) Metabolic encephalopathy; Translations: [Metabolic encephalopathy] Onset: 08-20-2024 08-25-2024 Chronic Other non-traumatic joint disorders (5 sources) Pain of right wrist; Translations: [Pain in right wrist] 07-30-2024 Episodic Other nutritional; endocrine; and metabolic disorders (2 sources) Hypocalcemia; Translations: [Other disorders of phosphorus metabolism] Onset: 08-11-2017 Chronic Other nutritional; endocrine; and metabolic disorders (2 sources) Hypercalcemia; Translations: [Hypercalcemia] 08-22-2024 Chronic Other nutritional; endocrine; and metabolic disorders (3 sources) Hypercalcemia; Translations: [Hypercalcemia] Onset: 08-20-2024 08-25-2024 Chronic Other nutritional; endocrine; and metabolic disorders (1 source) Underweight; Translations: [Underweight] 07-30-2024 Episodic Other screening for suspected conditions (not mental disorders or infectious disease) (1 source) Blood chemistry abnormal; Translations: [Other specified abnormal findings of blood chemistry] Onset: 06-23-2023 Episodic Other upper respiratory disease (1 source) Hoarse; Translations: [Dysphonia] 07-16-2024 Episodic Paralysis (16 sources) Right hemiplegia; Translations: [Hemiplegia, unspecified affecting right dominant side] Onset: 10-25-2023 10-25-2023 Chronic Parkinson's disease (8 sources) Parkinson's disease; Translations: [Parkinson's disease] Onset: 08-11-2017 06-23-2023 Chronic Parkinson`s disease (2 sources) Parkinson`s disease; Translations: [Parkinson's disease with dyskinesia and fluctuating manifestations (HCC)] Onset: 09-13-2023 Residual codes; unclassified (1 source) Insomnia, unspecified; Translations: [INSOMNIA UNSPECIFIED] Onset: 10-12-2022 Episodic Residual codes; unclassified (4 sources) Altered mental status; Translations: [Altered mental status, unspecified] Onset: 07-26-2024 Episodic Residual codes; unclassified (3 sources) Altered mental status, unspecified; Translations: [Altered mental status] 08-20-2024 Episodic Residual codes; unclassified (1 source) Other specified health status; Translations: [Other specified health status] Onset: 08-25-2024 Episodic Residual codes; unclassified (1 source) Disorientation, unspecified; Translations: [Disorientation, unspecified] Onset: 08-20-2024 Episodic Respiratory failure; insufficiency; arrest (adult) (1 [...] fluctuations] Onset: 06-23-2023 Chronic 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) [facility] (current) use of oral hypoglycemic drugs; 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 This puts you at a higher risk for infection, illness, falls, and other injuries. Here are four ways to help you reduce your risk of frailty: 1. IDENTIFY EARLY SIGNS OF FRAILTY Discuss contributing factors and concerns with your doctor 2. BE ACTIVE Walking and light strengthening exercises will help reduce weakness 3. EAT WELL Aim for three healthy meals a day that are high in protein 4. THINK POSITIVE Keep your mind active by being sociable and continuing to learn References: Stay Strong: Four Ways to Beat the Frailty Risk [email or web address]-lgrzac-aapx-ways -yu-rqqp-lkf-fra ilty-risk 08-25-2024 Urinary tract infections (17 sources) Urinary tract infection, site not specified; Translations: [Urinary tract infectious disease] Onset: 03-31-2022 Episodic Past or Other Problems Problem Classification Problem Date Documented Date Episodic/Chronic Abdominal hernia (2 sources) Incisional hernia without obstruction or gangrene; Translations: [Incisional hernia without obstruction or gangrene] Onset: 09-17-2023 Episodic Acute bronchitis (1 source) Acute bronchitis, unspecified; Translations: [ACUTE BRONCHITIS UNSPECIFIED] Onset: 05-22-2022 Episodic Acute posthemorrhagic anemia (1 source) Acute posthemorrhagic anemia; Translations: [ACUTE POSTHEMORRHAGIC ANEMIA] Onset: 08-11-2017 Episodic Calculus of urinary tract (15 sources) Kidney stone; Translations: [Calculus of kidney] Onset: 02-20-2020 02-20-2020 Episodic Coagulation and hemorrhagic disorders (2 sources) Spontaneous ecchymoses; Translations: [Spontaneous ecchymoses] Onset: 08-22-2023 Episodic Crushing injury or internal injury (3 sources) Unspecified injury of spleen, initial encounter; Translations: [Major laceration of spleen, initial encounter] Onset: 08-11-2017 Episodic Genitourinary symptoms and ill-defined conditions (16 sources) Personal history of urinary (tract) infections; [...] Onset: 05-24-2022 Episodic Other aftercare (2 sources) 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; 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 ASPIRIN] Onset: 08-11-2017 Episodic Other aftercare (1 source) Other intermediate (current) drug therapy; Translations: [OTH CARE HOME CURRENT DRUG THERAPY] Onset: 05-22-2022 Episodic Other connective tissue disease (17 sources) Abnormal posture; Translations: [Abnormal posture] Onset: 09-13-2023 09-13-2023 Episodic Other connective tissue disease (1 source) Abnormal posture; Translations: [Abnormal posture] Onset: 09-13-2023 Episodic Other diseases of kidney and ureters (20 sources) Obstruction of pelviureteric junction; Translations: [Crossing vessel and stricture of ureter without hydronephrosis] Onset: 02-20-2020 02-10-2020 Episodic Other diseases of kidney and ureters (15 sources) Stricture of ureter; Translations: [Crossing vessel [...] Onset: 12-27-2021 Episodic Other nervous system disorders (16 sources) Hyperreflexia; Translations: [Abnormal reflex] Onset: 09-13-2023 09-13-2023 Episodic Other nervous system disorders (16 sources) Ataxia; Translations: [Ataxia, unspecified] Onset: 10-25-2023 10-25-2023 Episodic Other nervous system disorders (16 sources) Paresthesia; Translations: [Paresthesia of skin] Onset: 10-25-2023 10-25-2023 Episodic Other nervous system disorders (2 sources) [...] SPLEEN] Onset: 05-22-2022 Episodic Residual codes; unclassified (16 sources) Memory impairment; Translations: [Other amnesia] Onset: [...] Test Name Value Interpretation Reference Range Facility XR Pelvis 1 or 2 [facility] Result: Examination of the x-ray AP pelvis done here today single view with permanent images are saved to the record does show the superior pubic rami fracture. There is some slight displacement noted. Some comminution noted. The bone is osteopenic, likely osteoporotic. No evidence of further fracture or other osseous abnormality. [facility] XR Wrist - right 3 [facility] 0 09-12-2024 Imaging Result: X-ray of the right wrist AP, lateral and oblique total of three views with permanent images are saved to the record does show the evidence of the distal radius fracture. It does appear to be fixated accordingly. No evidence of displacement or further finding of significance. No change in the hardware is noted. [facility] No Panel Informationon 09-10 Radiology Study observation (narrative) [facility] Basic Metabolic Panelon 08-10 Anion gap [Moles/Vol] 12.1 mmol/L Normal 6.0-15.0 [facility] e [facility] Comment on above: Performed By: #### C UU, ADDONUAPLUS #### [address] Calcium [Mass/Vol] 10.9 mg/dL High 8.6-10.3 [facility] Comment on above: Performed By: #### C UU, ADDONUAPLUS #### [place] [address] [place] Chloride [Moles/Vol] 108 mmol/L High 98-107 [facility] Comment on above: Performed By: #### C UU, ADDONUAPLUS #### [place] [address] [place] CO2 [Moles/Vol] 24.7 mmol/L Normal 21.0-31.0 [facility] Comment on above: Performed By: #### C UU, ADDONUAPLUS #### [place] [address] [place] Creatinine [Mass/Vol] 1.22 mg/dL High 0.60-1.20 [facility] Comment on above: Performed By: #### C UU, ADDONUAPLUS #### [place] [address] [place] Creatinine Clr Calc Pharmacy 28.68 Normal [facility] Comment on above: Result Comment: PERF ORMED BY: [place] [address] PATHOLOGIST [employer] ANNE OLGUIN M.D. Performed By: #### C UU, ADDONUAPLUS #### [place] [address] [place] Estimated GFR 45.423 mL/Min Normal [facility] Comment on above: Performed By: #### C UU, ADDONUAPLUS #### [facility] [address] [place] [address] [place] Glucose [Mass/Vol] 80 mg/dL Normal 70-100 [facility] Comment on above: Result Comment: [place] Glucose Reference Range is dependent on time and content of last meal. Glucose of more than 200 mg/dL in a nonstressed, ambulatory subject supports the diagnosis of Diabetes Mellitus. ADA recommended reference range Performed By: #### C UU, ADDONUAPLUS #### [facility] [address] Potassium [Moles/Vol] 4.8 mmol/L Normal 3.5-5.1 [facility] Comment on above: Performed By: #### C UU, ADDONUAPLUS #### [facility] [address] [place] [address] [place] Sodium [Moles/Vol] 140 mmol/L Normal 136-145 [facility] Comment on above: Performed By: #### C UU, ADDONUAPLUS #### [facility] [address] [place] [address] [place] Urea nitrogen [Mass/Vol] 34 mg/dL High 7-25 [facility] Comment on above: Performed By: #### C UU, ADDONUAPLUS #### [facility] [address] [place] [id number] [facility] Calcium [Mass/volume] in Ser um or PlasmaOrdered By: Baylee Ho on 09-03-2024 Calcium [Mass/Vol] Calcium [Mass/volume ] in Serum or Plasma High 8.6-10.3 [facility] Carbon dioxide, total [Moles /volume] in Serum or PlasmaOrdered By: Baylee Ho on 09-03-2024 CO2 [Moles/Vol] Carbon dioxide, tota l [Moles/volume] in Serum or Plasma 21.0-31.0 [facility] Chloride [Moles/volume] in S sonya or PlasmaOrdered By: Baylee Ho on 09-03-2024 Chloride [Moles/Vol] Chloride [Moles/vol ume] in Serum or Plasma High 98-107 [facility] Creatinine [Mass/volume] in Serum or PlasmaOrdered By: Baylee Ho on 09-03-2024 Creatinine [Mass/Vol] Creatinine [Mass/v olume] in Serum or Plasma High 0.60-1.20 [facility] Glucose [Mass/volume] in Ser um or PlasmaOrdered By: Baylee Ho on 09-03-2024 Glucose [Mass/Vol] Glucose [Mass/volume ] in Serum or Plasma 70-100 [facility] Comment on above: ADA recommended refe rence rangeRandom Glucose Reference Range is dependent on time and content of last meal. Glucose of more than 200 mg/dL in a nonstressed, ambulatory subject supports the diagnosis of Diabetes Mellitus. No Panel InformationOrdered By: Baylee Ho on 09-03-2024 Estimated GFR (CKD-EPI) 45.423 mL/Min [facility] Creatinine Clearance (Chem 28.68 [facility] Potassium [Moles/volume] in Serum or PlasmaOrdered By: Baylee Ho on 09-03-2024 Potassium [Moles/Vol] Potassium [Moles/v olume] in Serum or Plasma 3.5-5.1 [facility] Serum or plasma anion gap de terminationOrdered By: Baylee Ho on 09-03-2024 Anion gap [Moles/Vol] Serum or plasma an ion gap determination 6.0-15.0 [facility] Sodium [Moles/volume] in Ser um or PlasmaOrdered By: Baylee Ho on 09-03-2024 Sodium [Moles/Vol] Sodium [Moles/volume ] in Serum or Plasma 136-145 [facility] Urea nitrogen [Mass/volume] in Serum or PlasmaOrdered By: Baylee Ho on 09-03-2024 Urea nitrogen [Mass/Vol] Urea nitrogen [Mass/volume] in Serum or Plasma High 7-25 [facility] Basic Metabolic Panelon 08-10 Anion gap [Moles/Vol] 9.7 mmol/L Normal 6.0-15.0 [facility] Comment on above: Performed By: #### S CAN CBC, BMP #### [facility] [address] [place] [address] [place] Calcium [Mass/Vol] 11.1 mg/dL High 8.6-10.3 [facility] Comment on above: Performed By: #### S CAN CBC, BMP #### [facility] [address] [place] [address] [place] Chloride [Moles/Vol] 105 mmol/L Normal 98-107 [facility] Comment on above: Performed By: #### S CAN CBC, BMP #### [facility] [address] [place] [address] [place] CO2 [Moles/Vol] 25.9 mmol/L Normal 21.0-31.0 [facility] Comment on above: Performed By: #### S CAN CBC, BMP #### [place] [address] [place] Creatinine [Mass/Vol] 1.29 mg/dL High 0.60-1.20 [facility] Comment on above: Performed By: #### S CAN CBC, BMP #### [facility] [address] [place] [address] [place] Creatinine Clr Calc Pharmacy 27.12 Normal [facility] Comment on above: Result Comment: PERF ORMED BY: [place] [address] PATHOLOGIST [employer]ISTR[employer] ANNE OLGUIN M.D. Performed By: #### S CAN CBC, BMP #### [address] Estimated GFR 42.482 mL/Min Normal [facility] Comment on above: Performed By: #### S CAN CBC, BMP #### [place] [address] [place] Glucose [Mass/Vol] 86 mg/dL Normal 70-100 [facility] Comment on above: Result Comment: [place] om Glucose Reference Range is dependent on time and content of last meal. Glucose of more than 200 mg/dL in a nonstressed, ambulatory subject supports the diagnosis of Diabetes Mellitus. ADA recommended reference range Performed By: #### S CAN CBC, BMP #### [facility] [address] Potassium [Moles/Vol] 4.6 mmol/L Normal 3.5-5.1 [facility] Comment on above: Performed By: #### S CAN CBC, BMP #### [facility] [address] Sodium [Moles/Vol] 136 mmol/L Significant change down 136-145 [facility] Comment on above: Performed By: #### S CAN CBC, BMP #### [facility] [address] Urea nitrogen [Mass/Vol] 31 mg/dL High 7-25 [facility] Comment on above: Performed By: #### S CAN CBC, BMP #### [facility] [address] Basophils Auto (Bld) [#/Vol] Ordered By: Baylee Ho on 09-02-2024 Basophils (Bld) [#/Vol] Automated basophil count 0.0-0.2 [facility] Basophils/100 WBC Auto (Bld) Ordered By: Baylee Ho on 09-02-2024 Basophils/100 WBC (Bld) Automated basophil % . [facility] [place] cells [Presence] in Blo od by Light microscopyOrdered By: Baylee Witt on 09-02-2024 [place] cells LM Ql (Bld) [place] cells [Prese nce] in Blood by Light microscopy [facility] Eosinophils Auto (Bld) [#/Vo l]Ordered By: Baylee Ho on 09-02-2024 Eosinophils (Bld) [#/Vol] Automated eosinophil count 0.0-0.45 [facility] Eosinophils/100 WBC Auto (Bl d)Ordered By: Baylee Ho on 09-02-2024 Eosinophils/100 WBC (Bld) Automated eosinophil % . [facility] Erythrocyte distribution wid th Auto (RBC) [Ratio]Ordered By: Baylee Witt on 09-02-2024 Erythrocyte distribution width (RBC) [Ratio] Erythrocyte distribution width [Ratio] by Automated count 11.9-15.3 [facility] Erythrocyte morphology findi ng [Identifier] in BloodOrdered By: Baylee Witt on 09-02-2024 RBC morphology finding Nom (Bld) RBC morphology [facility] Hematocrit Auto (Bld) [Volum e fraction]Ordered By: Baylee Ho on 09-02-2024 Hematocrit (Bld) [Volume fraction] Hematocrit [Volume Fraction] of Blood by Automated count 34.0-46.4 [facility] Hemoglobin [Mass/volume] in BloodOrdered By: Baylee Ho on 09-02-2024 Hemoglobin (Bld) [Mass/Vol] Hemoglobin [Mass/volume] in Blood 11.8-15.4 [facility] Leukocytes [#/volume] correc ej for nucleated erythrocytes in Blood by Automated counOrdered By: Baylee Ho on 09-02-2024 WBC corrected for nucl RBC Auto (Bld) [#/Vol] Leukocytes [#/volume] corrected for nucleated erythrocytes in Blood by Automated coun 3.8-11.6 [facility] Lymphocytes Auto (Bld) [#/Vo l]Ordered By: Baylee Ho on 09-02-2024 Lymphocytes (Bld) [#/Vol] Lymphocytes [#/volume] in Blood by Automated count 1.00-4.8 [facility] Lymphocytes/100 WBC Auto (Bl d)Ordered By: Baylee Ho on 09-02-2024 Lymphocytes/100 WBC (Bld) Lymphocytes/100 leukocytes in Blood by Automated count . [facility] MCH Auto (RBC) [Entitic mass ]Ordered By: Baylee Ho on 09-02-2024 MCH (RBC) [Entitic mass] MCH [Entitic mass] by Automated count 24.7-34.3 [facility] MCHC Auto (RBC) [Mass/Vol]Or dered By: Baylee Ho on 09-02-2024 MCHC (RBC) [Mass/Vol] MCHC [Mass/volume] by Automated count 32.0-35.0 [facility] MCV Auto (RBC) [Entitic vol] Ordered By: Baylee Ho on 09-02-2024 MCV (RBC) [Entitic vol] MCV [Entitic volume] by Automated count 80-100 [facility] Monocytes Auto (Bld) [#/Vol] Ordered By: Baylee Ho on 09-02-2024 Monocytes (Bld) [#/Vol] Automated blood monocyte count High 0.0-0.8 [facility] Monocytes/100 WBC Auto (Bld) Ordered By: Baylee Ho on 09-02-2024 Monocytes/100 WBC (Bld) Automated monocyte % . [facility] Neutrophils Auto (Bld) [#/Vo l]Ordered By: Baylee Ho on 09-02-2024 Neutrophils (Bld) [#/Vol] Neutrophils [#/volume] in Blood by Automated count 1.8-7.7 [facility] Neutrophils/100 WBC Auto (Bl d)Ordered By: Baylee Ho on 09-02-2024 Neutrophils/100 WBC (Bld) Automated neutrophil % . [facility] Nucleated erythrocytes [Pres ence] in Blood by Automated countOrdered By: Baylee Ho on 09-02-2024 Nucleated RBC Auto Ql (Bld) Nucleated erythrocytes [Presence] in Blood by Automated count 0-0.5 [facility] Ovalocytes [Presence] in Blo od by Light microscopyOrdered By: Baylee Witt on 09-02-2024 Ovalocytes LM Ql (Bld) Ovalocyte detection [facility] Platelet adequacy [Presence] in Blood by Light microscopyOrdered By: Baylee Ho on 09-02-2024 Platelets LM Ql (Bld) Platelet adequacy [Presence] in Blood by Light microscopy Normal [facility] Platelet mean volume Auto (B ld) [Entitic vol]Ordered By: Baylee Ho on 09-02-2024 Platelet mean volume (Bld) [Entitic vol] Platelet mean volume [Entitic volume] in Blood by Automated count High 6.3-10.7 [facility] Platelet morphology finding [Identifier] in BloodOrdered By: Baylee Witt on 09-02-2024 Platelet morphology finding Nom (Bld) Platelet morphology finding [Identifier] in Blood [facility] Platelets Auto (Bld) [#/Vol] Ordered By: Baylee Ho on 09-02-2024 Platelets (Bld) [#/Vol] Platelets [#/volume] in Blood by Automated count Significant change down 150-450 [facility] Comment on above: [place]: 254 on -1057 Platelets Large [Presence] i n Blood by Light microscopyOrdered By: Baylee Ho on 09-02-2024 Platelets Large LM Ql (Bld) Platelets Large [Presence] in Blood by Light microscopy [facility] Poikilocytosis [Presence] in Blood by Light microscopyOrdered By: Baylee Ho on 09-02-2024 Poikilocytosis LM Ql (Bld) Poikilocytosis [Presence] in Blood by Light microscopy [facility] RBC Auto (Bld) [#/Vol]Ordere d By: Baylee Ho on 09-02-2024 RBC (Bld) [#/Vol] Erythrocytes [#/volu me] in Blood by Automated count 3.60-5.00 [facility] Scan and CBCon 09-02-2024 Basophils (Bld) [#/Vol] 0.1 10*3/uL Normal 0.0-0.2 [facility] Comment on above: Result Comment: PERF ORMED BY: [place] [address] PATHOLOGIST [employer] ANNE OLGUIN M.D. Performed By: #### S CAN CBC, BMP #### [facility] [address] [place] [address] [place] Basophils/100 WBC (Bld) 0.7 % Normal . [facility] Physician Group Comment on above: Performed By: #### S CAN CBC, BMP #### [facility] [address] [place] [address] [place] Crenated RBC Slight Normal [facility] Comment on above: Performed By: #### S CAN CBC, BMP #### [facility] [address] [place] [address] [place] Eosinophils (Bld) [#/Vol] 0.1 10*3/uL Normal 0.0-0.45 [facility] Comment on above: Performed By: #### S CAN CBC, BMP #### [address] Eosinophils/100 WBC (Bld) 1.1 % Normal . [facility] Comment on above: Performed By: #### S CAN CBC, BMP #### [address] Erythrocyte distribution width (RBC) [Ratio] 15.0 % Normal 11.9-15.3 [facility] Comment on above: Performed By: #### S CAN CBC, BMP #### [address] Hematocrit (Bld) [Volume fraction] 37.2 % Normal 34.0-46.4 [facility] Comment on above: Performed By: #### S CAN CBC, BMP #### [address] Hemoglobin (Bld) [Mass/Vol] 12.6 g/dL Normal 11.8-15.4 [facility] Comment on above: Performed By: #### S CAN CBC, BMP #### [address] Large Platelets Slight Normal [facility] Comment on above: Result Comment: PERF ORMED BY: [place] [address] PATHOLOGIST [employer] ANNE OLGUIN M.D. Performed By: #### S CAN CBC, BMP #### [address] Lymphocytes (Bld) [#/Vol] 1.4 10*3/uL Normal 1.00-4.8 [facility] Comment on above: Performed By: #### S CAN CBC, BMP #### [address] Lymphocytes/100 WBC (Bld) 15.8 % Normal . [facility] Comment on above: Performed By: #### S CAN CBC, BMP #### [facility] [address] MCH (RBC) [Entitic mass] 31.8 pg Normal 24.7-34.3 [facility] Comment on above: Performed By: #### S CAN CBC, BMP #### [address] MCV (RBC) [Entitic vol] 94.1 fL Normal 80-100 [facility] Comment on above: Performed By: #### S CAN CBC, BMP #### [address] Mean Corpuscular HGB Conc 33.8 g/dL Normal 32.0-35.0 [facility] Comment on above: Performed By: #### S CAN CBC, BMP #### [address] Monocytes (Bld) [#/Vol] 1.5 10*3/uL High 0.0-0.8 [facility] Comment on above: Performed By: #### S CAN CBC, BMP #### [place] [address] [place] Monocytes/100 WBC (Bld) 17.1 % Normal . [facility] Comment on above: Performed By: #### S CAN CBC, BMP #### [address] Neutrophils (Bld) [#/Vol] 5.7 10*3/uL Normal 1.8-7.7 [facility] Comment on above: Performed By: #### S CAN CBC, BMP #### [place] [address] [place] Neutrophils/100 WBC (Bld) 65.3 % Normal . [facility] Comment on above: Performed By: #### S CAN CBC, BMP #### [address] NRBC% 0.2 /100{WBC} Normal 0-0.5 [facility] Comment on above: Performed By: #### S CAN CBC, BMP #### [address] Ovalocytes Slight Normal [facility] Comment on above: Performed By: #### S CAN CBC, BMP #### [address] Platelet Estimate Normal Normal Normal [facility] Comment on above: Performed By: #### S CAN CBC, BMP #### [address] Platelet mean volume (Bld) [Entitic vol] 11.2 fL High 6.3-10.7 [facility] Comment on above: Performed By: #### S CAN CBC, BMP #### [address] Platelets (Bld) [#/Vol] 194 10*3/uL Significant change down 150-450 [facility] Comment on above: Performed By: #### S CAN CBC, BMP #### [address] Poikilocytosis Slight Normal [facility] Comment on above: Performed By: #### S CAN CBC, BMP #### [address] RBC (Bld) [#/Vol] 3.95 10*6/uL Normal 3.60-5.00 [facility] Comment on above: Performed By: #### S CAN CBC, BMP #### [address] Target Cells Slight Normal [facility] Comment on above: Performed By: #### S CAN CBC, BMP #### [address] WBC (Bld) [#/Vol] 8.7 10*3/uL Normal 3.8-11.6 [facility] Comment on above: Performed By: #### S CAN CBC, BMP #### [address] Target cells [Presence] in B lood by Light microscopyOrdered By: Baylee Witt on 09-02-2024 Target cells LM Ql (Bld) Target cells [facility] WBC Auto (Bld) [#/Vol]Ordere d By: Bayleemiguelangel Ho on 09-02-2024 WBC (Bld) [#/Vol] Leukocytes [#/volume ] in Blood by Automated count 3.8-11.6 [facility] X-ray reportOrdered By: Apollo Guerrero on 09-02-2024 Study report [facility] Main [place] [address] [place] [address] XRay Report Signed Patient: Judith Land MR#: [id number] : 1945 Acct:[id number] Age/Sex: 79 / F ADM Date: 5 Loc: Room: [address] [place] [address] Type: ADM IN Attending Dr: Pa Neil MD Copies to: Pa Neil MD~ Ordering Provider: Pa Neil MD Date of Service: 09/02/24 XR/XR hip LT min 2V(w/wo pelvis)*: L groin pain s/p fall LEFT HIP - 2 views: CLINICAL HISTORY: Fall yesterday. Left hip pain. COMPARISON: None FINDINGS: There appears be fractures involving the left superior and inferior pubic ramus. Hip appears intact with mild degenerative change. Bones are grossly demineralized. Degenerative changes involving the visualized lower lumbar spine, SI joints and pubic symphysis. XR/XR hip LT min 2V(w/wo pelvis)* IMPRESSION: THERE APPEARS BE FRACTURES INVOLVING THE LEFT SUPERIOR AND INFERIOR PUBIC RAMUS.. Impression dictated by: Ramsey Guerrero Jr., D.O.09/02/2024 5:54 PM Dictation Location: [facility] [address] Transcribed By: JOSELO 09/02/241753 Dictated By: Ramsey Guerrero Jr, DO 09/02/241753 Signed By: 09/02/241753 [facility] XR hip LT min 2V(w/wo pelvis )*on 09-02-2024 XR hip LT min 2V(w/wo pelvis)* [facility] Main [place] [address] [place] [id number] XRay Report Signed Patient: Judith Land MR#: [id number] : 1945 Acct:[id number] Age/Sex: 79 / F ADM Date: 08/25/24 Loc: Room: [address] [place] [address] Type: ADM IN Attending Dr: Pa Neil MD Copies to: Pa Neil MD Ordering Provider: Pa Neil MD Date of Service: 09/02/24 XR/XR hip LT min 2V(w/wo pelvis)*: L groin pain s/p fall LEFT HIP - 2 views: CLINICAL HISTORY: Fall yesterday. Left hip pain. COMPARISON: None FINDINGS: There appears be fractures involving the left superior and inferior pubic ramus. Hip appears intact with mild degenerative change. Bones are grossly demineralized. Degenerative changes involving the visualized lower lumbar spine, SI joints and pubic symphysis. XR/XR hip LT min 2V(w/wo pelvis)* IMPRESSION: THERE APPEARS BE FRACTURES INVOLVING THE LEFT SUPERIOR AND INFERIOR PUBIC RAMUS.. Impression dictated by: Ramsey Guerrero Jr., DRatnaORatna09/02/2024 5:54 PM Dictation Location: [place] [address] Transcribed By: [facility] 09/02/241753 Dictated By: Ramsey Guerrero Jr, DO 09/02/241753 Signed By: 09/02/241753 Normal [facility] CT head/brain wo mannie 09-01 CT head/brain wo [facility] Main [address] [address] [address] Scan Report Signed Patient: Judith Land MR#: [id number] : 1945 Acct:[id number] Age/Sex: 79 / F ADM Date: 08/25/24 Loc: Room: [address] [place] [address] Type: ADM IN Attending Dr: Pa Neil MD Copies to: Pa Neil MD Ordering Provider: Pa Neil MD Date of Service: 09/01/24 CT/CT head/brain wo con: Altered mental status CT BRAIN WITHOUT CONTRAST: CLINICAL HISTORY: Altered mental status. COMPARISON: CT brain 12/27/2021 TECHNIQUE: Contiguous axial unenhanced images were obtained through the brain. This CT exam was performed using one or more following dose reduction techniques: Automated exposure control, adjustment of the mA and/or kV according to patient size, or use of iterative reconstruction technique. FINDINGS: There is no evidence of midline shift, intra or extra-axial fluid collection, hemorrhage or CT evidence of stroke. Cortical atrophy with chronic microvascular ischemic changes similar to the prior study. Posterior fossa appears unremarkable. Visualized intraorbital contents demonstrate no acute findings. Visualized paranasal sinuses are clear. The surrounding soft tissues are normal. CT/CT head/brain wo con IMPRESSION: NO ACUTE INTRACRANIAL ABNORMALITY. Impression dictated by: Ramsey Guerrero Jr., D.ORatna09/01/2024 4:29 PM Dictation Location: [place] [address] Transcribed By: [facility] 09/01/24 1629 Dictated By: Ramsey Guerrero Jr, DO 09/01/24 1627 Signed By: 09/01/24 1629 Normal [facility] Acanthocytes [Presence] in B lood by Light microscopyOrdered By: Pa Neil on 08-31-2024 Acanthocytes LM Ql (Bld) Acanthocytes [Presence] in Blood by Light microscopy [facility] Anisocytosis LM Ql (Bld)Orde red By: Pa Neil on 08-31-2024 Anisocytosis Ql (Bld) Anisocytosis [Pres ence] in Blood by Light microscopy [facility] Basic Metabolic Panelon 08-10 Anion gap [Moles/Vol] 13.0 mmol/L Normal 6.0-15.0 [facility] Comment on above: Performed By: #### P TH #### [facility] [address] [place] [address] Calcium [Mass/Vol] 11.6 mg/dL High 8.6-10.3 [facility] Comment on above: Performed By: #### P TH #### [address] Chloride [Moles/Vol] 112 mmol/L High 98-107 [facility] Comment on above: Performed By: #### P TH #### [address] CO2 [Moles/Vol] 23.9 mmol/L Normal 21.0-31.0 [facility] Comment on above: Performed By: #### P TH #### [address] Creatinine [Mass/Vol] 1.34 mg/dL High 0.60-1.20 [facility] Comment on above: Performed By: #### P TH #### [address] Creatinine Clr Calc Pharmacy 26.11 Normal [facility] Comment on above: Result Comment: PERF ORMED BY: [place] [address] PATHOLOGIST [employer] ANNE OLGUIN M.D. Performed By: #### P TH #### [address] Estimated GFR 40.587 mL/Min Normal [facility] Comment on above: Performed By: #### P TH #### [address] Glucose [Mass/Vol] 94 mg/dL Normal 70-100 [facility] Comment on above: Result Comment: [place] Glucose Reference Range is dependent on time and content of last meal. Glucose of more than 200 mg/dL in a nonstressed, ambulatory subject supports the diagnosis of Diabetes Mellitus. ADA recommended reference range Performed By: #### P TH #### [address] Potassium [Moles/Vol] 4.9 mmol/L Normal 3.5-5.1 [facility] Comment on above: Performed By: #### P TH #### [address] Sodium [Moles/Vol] 144 mmol/L Normal 136-145 [facility] Comment on above: Performed By: #### P TH #### [address] Urea nitrogen [Mass/Vol] 33 mg/dL High 7-25 [facility] Comment on above: Performed By: #### P TH #### [address] Scan and CBCon 08-31-2024 Acanthocytes Slight Normal [facility] Comment on above: Performed By: #### P TH #### [address] Anisocytosis Ql (Bld) Slight Normal [facility] Comment on above: Performed By: #### P TH #### [address] Basophils (Bld) [#/Vol] 0.0 10*3/uL Normal 0.0-0.2 [facility] Comment on above: Performed By: #### P TH #### [address] Basophils/100 WBC (Bld) 0.5 % Normal . [facility] Comment on above: Performed By: #### P TH #### [address] Eosinophils (Bld) [#/Vol] 0.0 10*3/uL Normal 0.0-0.45 [facility] Comment on above: Performed By: #### P TH #### [address] Eosinophils/100 WBC (Bld) 0.7 % Normal . [facility] Comment on above: Performed By: #### P TH #### [address] Erythrocyte distribution width (RBC) [Ratio] 15.4 % High 11.9-15.3 [facility] Comment on above: Performed By: #### P TH #### [address] Hematocrit (Bld) [Volume fraction] 39.8 % Normal 34.0-46.4 [facility] Comment on above: Performed By: #### P TH #### [address] Hemoglobin (Bld) [Mass/Vol] 13.6 g/dL Normal 11.8-15.4 [facility] Comment on above: Performed By: #### P TH #### [address] Large Platelets Slight Normal [facility] Comment on above: Result Comment: PERF ORMED BY: [place] [address] PATHOLOGIST [employer] ANNE OLGUIN M.D. Performed By: #### P TH #### [address] Lymphocytes (Bld) [#/Vol] 1.4 10*3/uL Normal 1.00-4.8 [facility] Comment on above: Performed By: #### P TH #### [address] Lymphocytes/100 WBC (Bld) 20.6 % Normal . [facility] Comment on above: Performed By: #### P TH #### [address] MCH (RBC) [Entitic mass] 31.7 pg Normal 24.7-34.3 [facility] Comment on above: Performed By: #### P TH #### [address] MCV (RBC) [Entitic vol] 92.9 fL Normal 80-100 [facility] Comment on above: Performed By: #### P TH #### [address] Mean Corpuscular HGB Conc 34.2 g/dL Normal 32.0-35.0 [facility] Comment on above: Performed By: #### P TH #### [address] Monocytes (Bld) [#/Vol] 0.9 10*3/uL High 0.0-0.8 [facility] Comment on above: Performed By: #### P TH #### [address] Monocytes/100 WBC (Bld) 13.4 % Normal . [facility] Comment on above: Performed By: #### P TH #### [address] Neutrophils (Bld) [#/Vol] 4.3 10*3/uL Normal 1.8-7.7 [facility] Comment on above: Performed By: #### P TH #### [address] Neutrophils/100 WBC (Bld) 64.8 % Normal . [facility] Comment on above: Performed By: #### P TH #### [address] NRBC% 0.1 /100{WBC} Normal 0-0.5 [facility] Comment on above: Performed By: #### P TH #### [address] Ovalocytes Slight Normal [facility] Comment on above: Performed By: #### P TH #### [address] Platelet Estimate Normal Normal Normal [facility] Comment on above: Performed By: #### P TH #### [address] Platelet mean volume (Bld) [Entitic vol] 10.7 fL Normal 6.3-10.7 [facility] Comment on above: Performed By: #### P TH #### [address] Platelet Morphology Normal Normal Normal [facility] Comment on above: Performed By: #### P TH #### [address] Platelets (Bld) [#/Vol] 254 10*3/uL Normal 150-450 [facility] Comment on above: Performed By: #### P TH #### [address] Poikilocytosis Slight Normal [facility] Comment on above: Performed By: #### P TH #### [address] RBC (Bld) [#/Vol] 4.29 10*6/uL Normal 3.60-5.00 [facility] Comment on above: Performed By: #### P TH #### [address] Target Cells Slight Normal [facility] Comment on above: Performed By: #### P TH #### [address] WBC (Bld) [#/Vol] 6.6 10*3/uL Normal 3.8-11.6 [facility] Comment on above: Performed By: #### P TH #### [address] Appearance of UrineOrdered B y: Pa Neil on 08-30-2024 Appearance (U) Urine appearance Clear [facility] Bacteria [Presence] in Urine by AutomatedOrdered By: Pa Neil on 08-30-2024 Bacteria Auto Ql (U) Bacteria [Presence] in Urine by Automated None Seen [facility] Bilirubin Test strip Ql (U)O rdered By: Pa Neil on 08-30-2024 Bilirubin Ql (U) Bilirubin.total [Pre sence] in Urine by Test strip Negative [facility] Color Auto (U)Ordered By: Jacques Neil on 08-30-2024 Color (U) Color of Urine by Auto Yellow Fi [facility] Dipstick and Microscopicon 0 08-30-2024 Appearance (U) Clear Normal Clear [facility] Comment on above: Order Comment: Comme nt add Performed By: #### P TH #### [address] Bacteria,Urine None Seen Normal None Seen [facility] Comment on above: Order Comment: Comme nt add Performed By: #### P TH #### [address] Bilirubin,Urine Negative Normal Negative [facility] Comment on above: Order Comment: Comme nt add Performed By: #### P TH #### [address] Color (U) Light-Yellow Normal Yellow [facility] Comment on above: Order Comment: Comme nt add Performed By: #### P TH #### [address] Glucose Ql (U) Normal Normal Normal [facility] Comment on above: Order Comment: Comme nt add Performed By: #### P TH #### [address] Hyaline Casts,Urine None Normal 0-8 [facility] Comment on above: Order Comment: Comme nt add Performed By: #### P TH #### [address] Ketones Ql (U) Negative Normal Negative [facility] Comment on above: Order Comment: Comme nt add Performed By: #### P TH #### [address] Leukocyte esterase Test strip Ql (U) 2+ High Negative [facility] Comment on above: Order Comment: Comme nt add Performed By: #### P TH #### [place] [address] [place] Mucus,Urine Rare Normal [facility] Comment on above: Order Comment: Comme nt add Result Comment: PERF ORMED BY: [place] [address] PATHOLOGIST [employer] ANNE OLGUIN M.D. Performed By: #### P TH #### [address] Nitrite,Urine Negative Normal Negative [facility] Comment on above: Order Comment: Comme nt add Performed By: #### P TH #### [address] Occult Blood,Urine Negative Normal Negative [facility] Comment on above: Order Comment: Comme nt add Result Comment: PERF ORMED BY: [place] [address] PATHOLOGIST [employer] ANNE OLGUIN M.D. Performed By: #### P TH #### [address] pH (U) 6.5 [pH] Normal 5.0-9.0 [facility] Comment on above: Order Comment: Comme nt add Performed By: #### P TH #### [address] Protein (U) [Mass/Vol] 50 mg/dL High Negative Th e [facility] Comment on above: Order Comment: Comme nt add Performed By: #### P TH #### [address] RBC,Urine 10-19 High 0-4 [facility] Comment on above: Order Comment: Comme nt add Performed By: #### P TH #### [address] Specificy [place],Urine 1.013 Normal 1.001-1.030 [facility] Comment on above: Order Comment: Comme nt add Performed By: #### P TH #### [address] Squamous Epithelial Cell,Urine 1-2 Normal 0-2 [facility] Comment on above: Order Comment: Comme nt add Performed By: #### P TH #### [address] Urobilinogen,Urine Normal Normal Normal [facility] Comment on above: Order Comment: Comme nt add Performed By: #### P TH #### [address] WBC,Urine 10-19 High 0-4 [facility] Comment on above: Order Comment: Comme nt add Performed By: #### P TH #### [facility] [address] Epithelial cells.squamous [# /area] in Urine sediment by Automated countOrdered By: Pa Neil on 08-30-2024 Epithelial cells.squamous Auto (Urine sed) [#/Area] Epithelial cells.squamous [#/area] in Urine sediment by Automated count 0-2 [facility] Erythrocytes [#/area] in Uri ne sediment by Automated countOrdered By: Pa Neil on 08-30-2024 RBC Auto (Urine sed) [#/Area] Erythrocytes [#/area] in Urine sediment by Automated count High 0-4 [facility] Glucose [Mass/volume] in Uri ne by Test stripOrdered By: Pa Neil on 08-30-2024 Glucose Test strip (U) [Mass/Vol] Glucose [Mass/volume] in Urine by Test strip Normal [facility] Hemoglobin Test strip Ql (U) Ordered By: Pa Neil on 08-30-2024 Hemoglobin Ql (U) Hemoglobin [Presence ] in Urine by Test strip Negative [facility] Hyaline casts [#/area] in Ur ine sediment by Automated countOrdered By: Pa Neil on 08-30-2024 Hyaline casts Auto (Urine sed) [#/Area] Hyaline casts [#/area] in Urine sediment by Automated count 0-8 [facility] Ketones Test strip Ql (U)Ord ered By: Pa Neil on 08-30-2024 Ketones Ql (U) Ketones [Presence] i n Urine by Test strip Negative [facility] Leukocyte esterase [Presence ] in Urine by Test stripOrdered By: Pa Neil on 08-30-2024 Leukocyte esterase Test strip Ql (U) Leukocyte esterase [Presence] in Urine by Test strip High Negative [facility] Leukocytes [#/area] in Urine sediment by Automated countOrdered By: Pa Neil on 08-30-2024 WBC Auto (Urine sed) [#/Area] Leukocytes [#/area] in Urine sediment by Automated count High 0-4 [facility] Mucus [Presence] in Urine by AutomatedOrdered By: Pa Neil on 08-30-2024 Mucus Auto Ql (U) Mucus [Presence] in Urine by Automated [facility] Nitrite Test strip Ql (U)Ord ered By: Pa Neil on 08-30-2024 Nitrite Ql (U) Nitrite [Presence] i n Urine by Test strip Negative [facility] Protein Test strip (U) [Mass /Vol]Ordered By: Pa Neil on 08-30-2024 Protein (U) [Mass/Vol] Protein [Mass/vol ume] in Urine by Test strip High Negative [facility] Specific gravity Test strip (U) [Rel density]Ordered By: Pa Neil on 08-30-2024 Specific gravity (U) [Rel density] Specific gravity of Urine by Test strip 1.001-1.030 [facility] Urine Cultureon 08-30-2024 Bacteria identified Cx Nom (U) 50,000 colonies/ml mixed bacterial skin contaminants 2 Days PERFORMED BY: [place] [address] PATHOLOGIST [employer] ANNE OLGUIN M.D. Normal [facility] Comment on above: Performed By: #### P TH #### [address] Urine cultureOrdered By: Fe Neil on 08-30-2024 Bacteria identified Cx Nom (U) Urine culture [facility] Urobilinogen Test strip (U) [Mass/Vol]Ordered By: Pa Neil on 08-30-2024 Urobilinogen (U) [Mass/Vol] Urobilinogen [Mass/volume] in Urine by Test strip Normal [facility] pH Test strip (U)Ordered By: Pa Neil on 08-30-2024 pH (U) pH of Urine by Test strip 5.0-9.0 [facility] ECG 12 lead ECGon 08-27-2024 ECG 12 lead ECG [facility] [place] [address] Electrocardiograph Report Signed Patient: Judith Land MR#: [id number] : 1945 Acct:[id number] Age/Sex: 79 / F ADM Date: 08/25/24 Loc: Room: 0V6130-5 Type: ADM IN Attending Dr: Pa Neil MD Ordering Provider: Didi Navarro APRN Date of Service: 08/27/24 ECG/ECG 12 lead ECG: irregular Copies to: Test Reason : Blood Pressure : */* mmHG Vent. Rate : 101 BPM Atrial Rate : 101 BPM P-R Int : 138 ms QRS Dur : 82 ms QT Int : 346 ms P-R-T Axes : 78 -11 111 degrees QTcB Int : 448 ms Sinus tachycardia with premature supraventricular complexes Minimal voltage criteria for LVH, may be normal variant ( Sokolow-Miguel ) Septal infarct , age undetermined Abnormal ECG No previous ECGs available Confirmed by ANA VEGA MD ([id number]) on 08/27/2024 11:20:45 AM Referred By: Electronically Signed By: ANA VEGA MD Transcribed By: MUS Signed By Ana Vega MD 0 08/27/24 1120 Normal [facility] Alanine aminotransferase [En zymatic activity/volume] in Serum or PlasmaOrdered By: Pa Neil on 08-26-2024 ALT [Catalytic activity/Vol] Alanine aminotransferase [Enzymatic activity/volume] in Serum or Plasma Low 7-52 [facility] Albumin [Mass/volume] in Ser um or Plasma by Bromocresol green (BCG) dye binding methoOrdered By: Pa Neil on 08-26-2024 Albumin BCG dye [Mass/Vol] Albumin [Mass/volume] in Serum or Plasma by Bromocresol green (BCG) dye binding metho 3.5-5.7 [facility] Alkaline phosphatase [Enzyma tic activity/volume] in Serum or PlasmaOrdered By: Pa Neil on 08-26-2024 ALP [Catalytic activity/Vol] Alkaline phosphatase [Enzymatic activity/volume] in Serum or Plasma High 34-104 [facility] Aspartate aminotransferase [ Enzymatic activity/volume] in Serum or PlasmaOrdered By: Pa Neil on 08-26-2024 AST [Catalytic activity/Vol] Aspartate aminotransferase [Enzymatic activity/volume] in Serum or Plasma 13-39 [facility] Basophils/100 WBC Manual cnt (Bld)Ordered By: Pa Neil on 08-26-2024 Basophils/100 WBC (Bld) Basophils/100 leukocytes in Blood by Manual count 0-2 [facility] Bilirubin.total [Mass/volume ] in Serum or PlasmaOrdered By: Pa Neil on 08-26-2024 Bilirubin [Mass/Vol] Bilirubin.total [Mass/volume] in Serum or Plasma 0.3-1.0 [facility] Comprehensive Metabolic Pane santo 08-26-2024 Albumin [Mass/Vol] 3.8 g/dL Normal 3.5-5.7 [facility] Comment on above: Performed By: #### C UU, ADDONUAPLUS #### [facility] [address] Albumin/Globulin [Mass ratio] 1.7 {ratio} Normal [facility] Comment on above: Performed By: #### C UU, ADDONUAPLUS #### [facility] [address] [place] [address] [place] ALP [Catalytic activity/Vol] 107 U/L High 34-104 [facility] Comment on above: Performed By: #### C UU, ADDONUAPLUS #### [facility] [address] [place] [id number] [place] ALT [Catalytic activity/Vol] 4 U/L Low 7-52 [facility] Comment on above: Performed By: #### C UU, ADDONUAPLUS #### [facility] [address] [place] [id number] [place] Anion gap [Moles/Vol] 10.2 mmol/L Normal 6.0-15.0 [facility] Comment on above: Performed By: #### C UU, ADDONUAPLUS #### [facility] [address] [place] [id number] [place] AST [Catalytic activity/Vol] 15 U/L Normal 13-39 [facility] Comment on above: Performed By: #### C UU, ADDONUAPLUS #### [address] Bilirubin [Mass/Vol] 0.5 mg/dL Normal 0.3-1.0 [facility] Comment on above: Performed By: #### C UU, ADDONUAPLUS #### [address] Calcium [Mass/Vol] 11.0 mg/dL High 8.6-10.3 [facility] Comment on above: Performed By: #### C UU, ADDONUAPLUS #### [address] Chloride [Moles/Vol] 108 mmol/L High 98-107 [facility] Comment on above: Performed By: #### C UU, ADDONUAPLUS #### [address] CO2 [Moles/Vol] 29.5 mmol/L Normal 21.0-31.0 [facility] Comment on above: Performed By: #### C UU, ADDONUAPLUS #### [address] Creatinine [Mass/Vol] 1.14 mg/dL Normal 0.60-1.20 [facility] Comment on above: Performed By: #### C UU, ADDONUAPLUS #### [address] Creatinine Clr Calc Pharmacy 31.08 Normal [facility] Comment on above: Performed By: #### C UU, ADDONUAPLUS #### [address] Estimated GFR 49.274 mL/Min Normal [facility] Comment on above: Performed By: #### C UU, ADDONUAPLUS #### [address] Globulin (S) [Mass/Vol] 2.2 g/dL Normal [facility] Comment on above: Performed By: #### C UU, ADDONUAPLUS #### [address] Glucose [Mass/Vol] 86 mg/dL Normal 70-100 [facility] Comment on above: Result Comment: [facility] [place] Glucose Reference Range is dependent on time and content of last meal. Glucose of more than 200 mg/dL in a nonstressed, ambulatory subject supports the diagnosis of Diabetes Mellitus. ADA recommended reference range Performed By: #### C UU, ADDONUAPLUS #### [address] Potassium [Moles/Vol] 3.7 mmol/L Normal 3.5-5.1 [facility] Comment on above: Performed By: #### C UU, ADDONUAPLUS #### [address] Protein [Mass/Vol] 6.0 g/dL Low 6.4-8.9 [facility] Comment on above: Performed By: #### C UU, ADDONUAPLUS #### [address] Sodium [Moles/Vol] 144 mmol/L Normal 136-145 [facility] Comment on above: Performed By: #### C UU, ADDONUAPLUS #### [address] Urea nitrogen [Mass/Vol] 22 mg/dL Normal 7-25 [facility] Comment on above: Performed By: #### C UU, ADDONUAPLUS #### [place] [address] [place] Diff and CBCon 08-26-2024 Acanthocytes Slight Normal [facility] Comment on above: Performed By: #### C UU, ADDONUAPLUS #### [place] [address] [place] Basophils/100 WBC (Bld) 1 % Normal 0-2 [facility] Comment on above: Performed By: #### C UU, ADDONUAPLUS #### [place] [address] [place] Crenated RBC Moderate Normal [facility] Comment on above: Performed By: #### C UU, ADDONUAPLUS #### [address] Eosinophils/100 WBC (Bld) 3 % Normal 1-3 [facility] Comment on above: Performed By: #### C UU, ADDONUAPLUS #### [address] Erythrocyte distribution width (RBC) [Ratio] 14.9 % Normal 11.9-15.3 [facility] Comment on above: Performed By: #### C UU, ADDONUAPLUS #### [address] Giant Platelet Tally 1 /100{WBC} Normal [facility] Comment on above: Performed By: #### C UU, ADDONUAPLUS #### [address] Hematocrit (Bld) [Volume fraction] 38.7 % Normal 34.0-46.4 [facility] Comment on above: Performed By: #### C UU, ADDONUAPLUS #### [address] Hemoglobin (Bld) [Mass/Vol] 13.0 g/dL Normal 11.8-15.4 [facility] Comment on above: Performed By: #### C UU, ADDONUAPLUS #### [address] Large Platelets Slight Normal [facility] Comment on above: Result Comment: PERF ORMED BY: [place] [address] PATHOLOGIST [employer] ANNE OLGUIN M.D. Performed By: #### C UU, ADDONUAPLUS #### [address] Lymphocytes/100 WBC (Bld) 28 % Normal 18-42 [facility] Comment on above: Performed By: #### C UU, ADDONUAPLUS #### [address] MCH (RBC) [Entitic mass] 31.1 pg Normal 24.7-34.3 [facility] Comment on above: Performed By: #### C UU, ADDONUAPLUS #### [address] MCV (RBC) [Entitic vol] 92.3 fL Normal 80-100 [facility] Comment on above: Performed By: #### C UU, ADDONUAPLUS #### [address] Mean Corpuscular HGB Conc 33.7 g/dL Normal 32.0-35.0 [facility] Comment on above: Performed By: #### C UU, ADDONUAPLUS #### [address] Monocytes/100 WBC (Bld) 12 % High 2-11 [facility] Comment on above: Performed By: #### C UU, ADDONUAPLUS #### [address] Myelocytes 1 % High 0-0 [facility] Comment on above: Performed By: #### C UU, ADDONUAPLUS #### [address] Ovalocytes Moderate Normal [facility] Comment on above: Performed By: #### C UU, ADDONUAPLUS #### [address] Platelet Estimate Normal Normal Normal [facility] Comment on above: Performed By: #### C UU, ADDONUAPLUS #### [address] Platelet mean volume (Bld) [Entitic vol] 9.9 fL Normal 6.3-10.7 [facility] Comment on above: Result Comment: PERF ORMED BY: [place] [address] PATHOLOGIST [employer] ANNE OLGUIN M.D. Performed By: #### C UU, ADDONUAPLUS #### [address] Platelets (Bld) [#/Vol] 254 10*3/uL Normal 150-450 [facility] Comment on above: Performed By: #### C UU, ADDONUAPLUS #### [address] Poikilocytosis Moderate Normal [facility] Comment on above: Performed By: #### C UU, ADDONUAPLUS #### [address] RBC (Bld) [#/Vol] 4.19 10*6/uL Normal 3.60-5.00 [facility] Comment on above: Performed By: #### C UU, ADDONUAPLUS #### [address] Reactive Lymphocytes 2 % Normal 0-12 [facility] Comment on above: Performed By: #### C UU, ADDONUAPLUS #### [address] Schistocytes Slight Normal [facility] Comment on above: Performed By: #### C UU, ADDONUAPLUS #### [address] Segmented neutrophils/100 WBC (Bld) 53 % Normal 50-70 [facility] Comment on above: Performed By: #### C UU, ADDONUAPLUS #### [address] Target Cells Slight Normal [facility] Comment on above: Performed By: #### C UU, ADDONUAPLUS #### [address] WBC (Bld) [#/Vol] 8.9 10*3/uL Normal 3.8-11.6 [facility] Comment on above: Performed By: #### C UU, ADDONUAPLUS #### [address] [place] [address] [place] Eosinophils/100 WBC Manual c nt (Bld)Ordered By: Pa Neil on 08-26-2024 Eosinophils/100 WBC (Bld) Eosinophils/100 leukocytes in Blood by Manual count 1-3 [facility] Giant platelets/100 leukocyt es [Ratio] in Blood by Manual countOrdered By: Pa Neil on 08-26-2024 Giant platelets/100 WBC Manual cnt (Bld) [Ratio] Giant platelets/100 leukocytes [Ratio] in Blood by Manual count [facility] Globulin Calc (S) [Mass/Vol] Ordered By: Pa Neil on 08-26-2024 Globulin (S) [Mass/Vol] Serum globulin measurement by calculation (mass/volume) [facility] Lymphocytes/100 WBC Manual c nt (Bld)Ordered By: Pa Neil on 08-26-2024 Lymphocytes/100 WBC (Bld) Lymphocytes/100 leukocytes in Blood by Manual count 18- [facility] Monocytes/100 WBC Manual cnt (Bld)Ordered By: Pa Neil on 08-26-2024 Monocytes/100 WBC (Bld) Monocytes/100 leukocytes in Blood by Manual count High 2-11 [facility] Myelocytes/100 WBC Manual cn t (Bld)Ordered By: Pa Neil on 08-26-2024 Myelocytes/100 WBC (Bld) Myelocytes/100 leukocytes in Blood by Manual count High 0-0 [facility] Prealbuminon 08-26-2024 Prealbumin [Mass/Vol] 15.9 mg/dL Low 17.0-34.0 [facility] Comment on above: Result Comment: PERF ORMED BY: [place] [address] PATHOLOGIST [employer] ANNE OLGUIN M.D. Performed By: #### C DIANNA STREETER #### [facility] [address] [place] [address] [place] Prealbumin [Mass/volume] in Serum or PlasmaOrdered By: Pa Neil on 08-26-2024 Prealbumin [Mass/Vol] Prealbumin [Mass/v olume] in Serum or Plasma Low 17.0-34.0 [facility] Protein [Mass/volume] in Ser um or PlasmaOrdered By: Pa Neil on 08-26-2024 Protein [Mass/Vol] Protein [Mass/volume ] in Serum or Plasma Low 6.4-8.9 [facility] Schistocytes [Presence] in B lood by Light microscopyOrdered By: Pa Neil on 08-26-2024 Schistocytes LM Ql (Bld) Schistocytes [Presence] in Blood by Light microscopy [facility] Segmented neutrophils/100 WB C Manual cnt (Bld)Ordered By: Pa Neil on 08-26-2024 Segmented neutrophils/100 WBC (Bld) Manual blood segmented neutrophils/100 leukocytes 50-70 [facility] Serum or plasma albumin/glob ulin mass ratioOrdered By: Pa Neil on 08-26-2024 Albumin/Globulin [Mass ratio] Serum or plasma albumin/globulin mass ratio [facility] Variant lymphocytes/100 WBC Manual cnt (Bld)Ordered By: Pa Neil on 08-26-2024 Variant lymphocytes/100 WBC (Bld) Variant lymphocytes/100 leukocytes in Blood by Manual count 0-12 [facility] Alanine aminotransferase [En zymatic activity/volume] in Serum or PlasmaOrdered By: Mariajose Alfred on 08-25-2024 ALT [Catalytic activity/Vol] Alanine aminotransferase [Enzymatic activity/volume] in Serum or Plasma Low 7-52 [facility] Albumin [Mass/volume] in Ser um or Plasma by Bromocresol green (BCG) dye binding methoOrdered By: Mariajose Alfred on 08-25-2024 Albumin BCG dye [Mass/Vol] Albumin [Mass/volume] in Serum or Plasma by Bromocresol green (BCG) dye binding metho 3.5-5.7 [facility] Alkaline phosphatase [Enzyma tic activity/volume] in Serum or PlasmaOrdered By: Mariajose Alfred on 08-25-2024 ALP [Catalytic activity/Vol] Alkaline phosphatase [Enzymatic activity/volume] in Serum or Plasma High 34-104 [facility] Aspartate aminotransferase [ Enzymatic activity/volume] in Serum or PlasmaOrdered By: Mariajose Morenor on 08-25-2024 AST [Catalytic activity/Vol] Aspartate aminotransferase [Enzymatic activity/volume] in Serum or Plasma 13-39 [facility] Bilirubin.total [Mass/volume ] in Serum or PlasmaOrdered By: Obmaynor Wagneromar on 08-25-2024 Bilirubin [Mass/Vol] Bilirubin.total [Mass/volume] in Serum or Plasma 0.3-1.0 [facility] Calcium [Mass/volume] in Ser um or PlasmaOrdered By: Obmaynor Wagneromar on 08-25-2024 Calcium [Mass/Vol] Calcium [Mass/volume ] in Serum or Plasma High 8.6-10.3 [facility] Carbon dioxide, total [Moles /volume] in Serum or PlasmaOrdered By: Mariajose Morenor on 08-25-2024 CO2 [Moles/Vol] Carbon dioxide, tota l [Moles/volume] in Serum or Plasma 21.0-31.0 [facility] Chloride [Moles/volume] in S sonya or PlasmaOrdered By: Mariajose Alfred on 08-25-2024 Chloride [Moles/Vol] Chloride [Moles/vol ume] in Serum or Plasma 98-107 [facility] Comprehensive Metabolic Pane santo 08-25-2024 Albumin [Mass/Vol] 3.8 g/dL Normal 3.5-5.7 [facility] Comment on above: Performed By: #### C UU, ADDONUAPLUS #### [facility] [address] Albumin/Globulin [Mass ratio] 1.6 {ratio} Normal [facility] Comment on above: Performed By: #### C UU, ADDONUAPLUS #### [facility] [address] [place] [id number] [place] ALP [Catalytic activity/Vol] 114 U/L High 34-104 [facility] Comment on above: Performed By: #### C UU, ADDONUAPLUS #### [facility] [address] [place] [id number] [place] ALT [Catalytic activity/Vol] 6 U/L Low 7-52 [facility] Comment on above: Performed By: #### C UU, ADDONUAPLUS #### [facility] [address] Anion gap [Moles/Vol] 9.6 mmol/L Normal 6.0-15.0 [facility] Comment on above: Performed By: #### C UU, ADDONUAPLUS #### [address] AST [Catalytic activity/Vol] 16 U/L Normal 13-39 [facility] Comment on above: Performed By: #### C UU, ADDONUAPLUS #### [address] Bilirubin [Mass/Vol] 0.4 mg/dL Normal 0.3-1.0 [facility] Comment on above: Performed By: #### C UU, ADDONUAPLUS #### [place] [address] [place] Calcium [Mass/Vol] 10.7 mg/dL High 8.6-10.3 [facility] Comment on above: Performed By: #### C UU, ADDONUAPLUS #### [place] [address] [place] Chloride [Moles/Vol] 107 mmol/L Normal 98-107 [facility] Comment on above: Performed By: #### C UU, ADDONUAPLUS #### [place] [address] [place] CO2 [Moles/Vol] 28.8 mmol/L Normal 21.0-31.0 [facility] Comment on above: Performed By: #### C UU, ADDONUAPLUS #### [place] [address] [place] Creatinine [Mass/Vol] 0.92 mg/dL Normal 0.60-1.20 [facility] Comment on above: Performed By: #### C UU, ADDONUAPLUS #### [place] [address] [place] Creatinine Clr Calc Pharmacy 39.22 Normal [facility] Comment on above: Result Comment: PERF ORMED BY: [place] [address] PATHOLOGIST [employer] ANNE OLGUIN M.D. Performed By: #### C UU, ADDONUAPLUS #### [place] [address] [place] GFR/1.73 sq M.predicted MDRD (S/P/Bld) [Vol rate/Area] mL/min/{1.73_m2} Normal [facility] Comment on above: Performed By: #### C UU, ADDONUAPLUS #### [address] Globulin (S) [Mass/Vol] 2.4 g/dL Normal [facility] Comment on above: Performed By: #### C UU, ADDONUAPLUS #### [address] Glucose [Mass/Vol] 92 mg/dL Normal 70-100 [facility] Comment on above: Result Comment: [place] Glucose Reference Range is dependent on time and content of last meal. Glucose of more than 200 mg/dL in a nonstressed, ambulatory subject supports the diagnosis of Diabetes Mellitus. ADA recommended reference range Performed By: #### C UU, ADDONUAPLUS #### [place] [address] [place] Potassium [Moles/Vol] 3.4 mmol/L Low 3.5-5.1 [facility] Comment on above: Performed By: #### C UU, ADDONUAPLUS #### [place] [address] [place] Protein [Mass/Vol] 6.2 g/dL Low 6.4-8.9 [facility] Comment on above: Performed By: #### C UU, ADDONUAPLUS #### [address] Sodium [Moles/Vol] 142 mmol/L Normal 136-145 [facility] Comment on above: Performed By: #### C UU, ADDONUAPLUS #### [facility] [address] Urea nitrogen [Mass/Vol] 21 mg/dL Normal 7-25 [facility] Comment on above: Performed By: #### C RAMON STREETERONUAPLUS #### [facility] [address] Creatinine [Mass/volume] in Serum or PlasmaOrdered By: Mariajose Alfred on 08-25-2024 Creatinine [Mass/Vol] Creatinine [Mass/v olume] in Serum or Plasma 0.60-1.20 [facility] Globulin Calc (S) [Mass/Vol] Ordered By: Mariajose Alfred on 08-25-2024 Globulin (S) [Mass/Vol] Serum globulin measurement by calculation (mass/volume) [facility] Glucose [Mass/volume] in Ser um or PlasmaOrdered By: Mariajose Alfred on 08-25-2024 Glucose [Mass/Vol] Glucose [Mass/volume ] in Serum or Plasma 70-100 [facility] Comment on above: ADA recommended refe rence rangeRandom Glucose Reference Range is dependent on time and content of last meal. Glucose of more than 200 mg/dL in a nonstressed, ambulatory subject supports the diagnosis of Diabetes Mellitus. No Panel InformationOrdered By: Mariajose Alfred on 08-25-2024 Estimated GFR (CKD-EPI) > 60.0 mL/Min [facility] Creatinine Clearance (Chem 39.22 [facility] Potassium [Moles/volume] in Serum or PlasmaOrdered By: Mariajose Alfred on 08-25-2024 Potassium [Moles/Vol] Potassium [Moles/v olume] in Serum or Plasma Low 3.5-5.1 [facility] Protein [Mass/volume] in Ser um or PlasmaOrdered By: Mariajose Alfred on 08-25-2024 Protein [Mass/Vol] Protein [Mass/volume ] in Serum or Plasma Low 6.4-8.9 [facility] Serum or plasma albumin/glob ulin mass ratioOrdered By: Mariajose Alfred on 08-25-2024 Albumin/Globulin [Mass ratio] Serum or plasma albumin/globulin mass ratio [facility] Serum or plasma anion gap de terminationOrdered By: Mariajose Wagneromar on 08-25-2024 Anion gap [Moles/Vol] Serum or plasma an ion gap determination 6.0-15.0 [facility] Sodium [Moles/volume] in Ser um or PlasmaOrdered By: Mariajose Wagneromar on 08-25-2024 Sodium [Moles/Vol] Sodium [Moles/volume ] in Serum or Plasma 136-145 [facility] Urea nitrogen [Mass/volume] in Serum or PlasmaOrdered By: Mariajose Wagneromar on 08-25-2024 Urea nitrogen [Mass/Vol] Urea nitrogen [Mass/volume] in Serum or Plasma 7-25 [facility] Appearance of UrineOrdered B y: Mariajose Morenor on 08-24-2024 Appearance (U) Urine appearance Abnormal Clear [facility] Bacteria [Presence] in Urine by AutomatedOrdered By: Mariajose Alfred on 08-24-2024 Bacteria Auto Ql (U) Bacteria [Presence] in Urine by Automated None Seen [facility] Basic Metabolic Panelon 08-09 Anion gap [Moles/Vol] 9.6 mmol/L Normal 6.0-15.0 [facility] Comment on above: Performed By: #### B RONA HALE #### [facility] [address] [place] [address] [place] Calcium [Mass/Vol] 10.4 mg/dL High 8.6-10.3 [facility] Comment on above: Performed By: #### B TREVA HALENO #### [facility] [address] [place] [id number] [place] Chloride [Moles/Vol] 107 mmol/L Normal 98-107 [facility] Comment on above: Performed By: #### B GEOFFREY CBCNO #### [facility] [address] [place] [id number] [place] CO2 [Moles/Vol] 28.9 mmol/L Normal 21.0-31.0 [facility] Comment on above: Performed By: #### B MP, CBCNO #### [facility] [address] Creatinine [Mass/Vol] 1.30 mg/dL High 0.60-1.20 [facility] Comment on above: Performed By: #### B GEOFFREY, CBCNO #### [address] Creatinine Clr Calc Pharmacy 27.42 Normal [facility] Comment on above: Result Comment: PERF ORMED BY: [place] [address] PATHOLOGIST [employer] ANNE OLGUIN M.D. Performed By: #### B GEOFFREY CBCNO #### [address] Estimated GFR 42.090 mL/Min Normal [facility] Comment on above: Performed By: #### B GEOFFREY CBCNO #### [address] Glucose [Mass/Vol] 95 mg/dL Normal 70-100 [facility] Comment on above: Result Comment: [facility] [place] Glucose Reference Range is dependent on time and content of last meal. Glucose of more than 200 mg/dL in a nonstressed, ambulatory subject supports the diagnosis of Diabetes Mellitus. ADA recommended reference range Performed By: #### B GEOFFREY, CBCNO #### [address] Potassium [Moles/Vol] 3.5 mmol/L Normal 3.5-5.1 [facility] Comment on above: Performed By: #### B GEOFFREY, CBCNO #### [place] [address] [place] Sodium [Moles/Vol] 142 mmol/L Normal 136-145 [facility] Comment on above: Performed By: #### B GEOFFREY, CBCNO #### [address] Urea nitrogen [Mass/Vol] 28 mg/dL High 7-25 [facility] Comment on above: Performed By: #### B GEOFFREY, CBCNO #### [address] Bilirubin Test strip Ql (U)O rdered By: Mariajose Alfred on 08-24-2024 Bilirubin Ql (U) Bilirubin.total [Pre sence] in Urine by Test strip Negative [facility] Color Auto (U)Ordered By: Lance Alfred on 08-24-2024 Color (U) Color of Urine by Auto Yellow Fi [facility] Dipstick and Microscopicon 0 08-24-2024 Appearance (U) Cloudy Critically abnormal Clear [facility] Comment on above: Order Comment: Name Collection Type:: Clean-Voided Midstream Performed By: #### A DDONUAPLUS #### [place] [address] [place] Bacteria,Urine None Seen Normal None Seen [facility] Comment on above: Order Comment: Name Collection Type:: Clean-Voided Midstream Performed By: #### A DDONUAPLUS #### [place] [address] [place] Bilirubin,Urine Negative Normal Negative [facility] Comment on above: Order Comment: Name Collection Type:: Clean-Voided Midstream Performed By: #### A DDONUAPLUS #### [place] [address] [place] Color (U) Light-Yellow Normal Yellow [facility] Comment on above: Order Comment: Name Collection Type:: Clean-Voided Midstream Performed By: #### A DDONUAPLUS #### [address] Glucose Ql (U) Normal Normal Normal [facility] Comment on above: Order Comment: Name Collection Type:: Clean-Voided Midstream Performed By: #### A DDONUAPLUS #### [place] [address] [place] Hyaline Casts,Urine 0-8 Normal 0-8 [facility] Comment on above: Order Comment: Name Collection Type:: Clean-Voided Midstream Performed By: #### A DDONUAPLUS #### [address] [address] [place] Ketones Ql (U) Trace High Negative [facility] Comment on above: Order Comment: Name Collection Type:: Clean-Voided Midstream Performed By: #### A DDONUAPLUS #### [address] Leukocyte esterase Test strip Ql (U) Negative Normal Negative [facility] Comment on above: Order Comment: Name Collection Type:: Clean-Voided Midstream Performed By: #### A DDONUAPLUS #### [place] [address] [place] Mucus,Urine Rare Normal [facility] Comment on above: Order Comment: Name Collection Type:: Clean-Voided Midstream Result Comment: PERF ORMED BY: [place] [address] PATHOLOGIST [employer] ANNE OLGUIN M.D. Performed By: #### A DDONUAPLUS #### [address] Nitrite,Urine Negative Normal Negative [facility] Comment on above: Order Comment: Name Collection Type:: Clean-Voided Midstream Performed By: #### A DDONUAPLUS #### [address] Occult Blood,Urine 2+ High Negative [facility] Comment on above: Order Comment: Name Collection Type:: Clean-Voided Midstream Result Comment: PERF ORMED BY: [place] [address] PATHOLOGIST [employer] ANNE OLGUIN M.D. Performed By: #### A DDONUAPLUS #### [place] [address] [place] pH (U) 6.5 [pH] Normal 5.0-9.0 [facility] Comment on above: Order Comment: Name Collection Type:: Clean-Voided Midstream Performed By: #### A DDONUAPLUS #### [place] [address] [place] Protein (U) [Mass/Vol] 30 mg/dL High Negative [facility] Comment on above: Order Comment: Name Collection Type:: Clean-Voided Midstream Performed By: #### A DDONUAPLUS #### [address] RBC,Urine Innumerable High 0-4 [facility] Comment on above: Order Comment: Name Collection Type:: Clean-Voided Midstream Performed By: #### A DDONUAPLUS #### [address] Specificy [place],Urine 1.018 Normal 1.001-1.030 [facility] Comment on above: Order Comment: Name Collection Type:: Clean-Voided Midstream Performed By: #### A DDONUAPLUS #### [address] Urobilinogen,Urine Normal Normal Normal [facility] Comment on above: Order Comment: Name Collection Type:: Clean-Voided Midstream Performed By: #### A DDONUAPLUS #### [address] WBC,Urine 5-9 High 0-4 [facility] Comment on above: Order Comment: Name Collection Type:: Clean-Voided Midstream Performed By: #### A DDONUAPLUS #### [address] Epithelial cells.squamous [# /area] in Urine sediment by Automated countOrdered By: Mariajose Alfred on 08-24-2024 Epithelial cells.squamous Auto (Urine sed) [#/Area] Epithelial cells.squamous [#/area] in Urine sediment by Automated count [facility] Erythrocyte distribution wid th Auto (RBC) [Ratio]Ordered By: Mariajose Alfred on 08-24-2024 Erythrocyte distribution width (RBC) [Ratio] Erythrocyte distribution width [Ratio] by Automated count 11.9-15.3 [facility] Erythrocytes [#/area] in Uri ne sediment by Automated countOrdered By: Mariajose Alfred on 08-24-2024 RBC Auto (Urine sed) [#/Area] Erythrocytes [#/area] in Urine sediment by Automated count High 0-4 [facility] Glucose [Mass/volume] in Uri ne by Test stripOrdered By: Mariajose Alfred on 08-24-2024 Glucose Test strip (U) [Mass/Vol] Glucose [Mass/volume] in Urine by Test strip Normal [facility] Hematocrit Auto (Bld) [Volum e fraction]Ordered By: Obmaynor Wagneromar on 08-24-2024 Hematocrit (Bld) [Volume fraction] Hematocrit [Volume Fraction] of Blood by Automated count 34.0-46.4 [facility] Hemoglobin Test strip Ql (U) Ordered By: Mariajose Alfred on 08-24-2024 Hemoglobin Ql (U) Hemoglobin [Presence ] in Urine by Test strip High Negative [facility] Hemoglobin [Mass/volume] in BloodOrdered By: Mariajose Morenor on 08-24-2024 Hemoglobin (Bld) [Mass/Vol] Hemoglobin [Mass/volume] in Blood 11.8-15.4 [facility] Hemogram CBC Without Diffon 08-24-2024 Erythrocyte distribution width (RBC) [Ratio] 14.7 % Normal 11.9-15.3 [facility] Comment on above: Performed By: #### B RONA HALE #### [address] Hematocrit (Bld) [Volume fraction] 39.6 % Normal 34.0-46.4 [facility] Comment on above: Performed By: #### B RONA HALE #### [address] Hemoglobin (Bld) [Mass/Vol] 13.6 g/dL Normal 11.8-15.4 [facility] Comment on above: Performed By: #### B TREVA HALENO #### [address] MCH (RBC) [Entitic mass] 31.3 pg Normal 24.7-34.3 [facility] Comment on above: Performed By: #### B GEOFFREY CBCNO #### [address] MCV (RBC) [Entitic vol] 91.6 fL Normal 80-100 [facility] Comment on above: Performed By: #### B GEOFFREY, CBCNO #### [address] Mean Corpuscular HGB Conc 34.2 g/dL Normal 32.0-35.0 [facility] Comment on above: Performed By: #### B GEOFFREY, CBCNO #### [address] Platelet mean volume (Bld) [Entitic vol] 9.7 fL Normal 6.3-10.7 [facility] Comment on above: Result Comment: PERF ORMED BY: [place] [address] PATHOLOGIST [employer] ANNE OLGUIN M.D. Performed By: #### B GEOFFREY, CBCNO #### [address] Platelets (Bld) [#/Vol] 286 10*3/uL Normal 150-450 [facility] Comment on above: Performed By: #### B GEOFFREY CBCNO #### [address] RBC (Bld) [#/Vol] 4.33 10*6/uL Normal 3.60-5.00 [facility] Comment on above: Performed By: #### B GEOFFREY, CBCNO #### [address] WBC (Bld) [#/Vol] 9.9 10*3/uL Normal 3.8-11.6 [facility] Comment on above: Performed By: #### B GEOFFREY, CBCNO #### [address] Hyaline casts [#/area] in Ur ine sediment by Automated countOrdered By: Mariajose Alfred on 08-24-2024 Hyaline casts Auto (Urine sed) [#/Area] Hyaline casts [#/area] in Urine sediment by Automated count 0-8 [facility] Ketones Test strip Ql (U)Ord ered By: Obbraxtondazoltan Wagneromar on 08-24-2024 Ketones Ql (U) Ketones [Presence] i n Urine by Test strip High Negative [facility] Leukocyte esterase [Presence ] in Urine by Test stripOrdered By: Obbraxtondazoltan Wagneromar on 08-24-2024 Leukocyte esterase Test strip Ql (U) Leukocyte esterase [Presence] in Urine by Test strip Negative [facility] Leukocytes [#/area] in Urine sediment by Automated countOrdered By: Obbraxtondazoltan Wagneromar on 08-24-2024 WBC Auto (Urine sed) [#/Area] Leukocytes [#/area] in Urine sediment by Automated count High 0-4 [facility] Leukocytes [#/volume] correc ej for nucleated erythrocytes in Blood by Automated counOrdered By: Obbraxtondazoltan Wagneromar on 08-24-2024 WBC corrected for nucl RBC Auto (Bld) [#/Vol] Leukocytes [#/volume] corrected for nucleated erythrocytes in Blood by Automated coun 3.8-11.6 [facility] MCH Auto (RBC) [Entitic mass ]Ordered By: Obbraxtondazoltan Wagneromar on 08-24-2024 MCH (RBC) [Entitic mass] MCH [Entitic mass] by Automated count 24.7-34.3 [facility] MCHC Auto (RBC) [Mass/Vol]Or dered By: Obbraxtondazoltan Wagneromar on 08-24-2024 MCHC (RBC) [Mass/Vol] MCHC [Mass/volume] by Automated count 32.0-35.0 [facility] MCV Auto (RBC) [Entitic vol] Ordered By: Obbraxtondah Bernardomar on 08-24-2024 MCV (RBC) [Entitic vol] MCV [Entitic volume] by Automated count 80-100 [facility] Mucus [Presence] in Urine by AutomatedOrdered By: Obbraxtondazoltan Wagneromar on 08-24-2024 Mucus Auto Ql (U) Mucus [Presence] in Urine by Automated [facility] Nitrite Test strip Ql (U)Ord ered By: Obbraxtondah Bernardomar on 08-24-2024 Nitrite Ql (U) Nitrite [Presence] i n Urine by Test strip Negative [facility] Platelet mean volume Auto (B ld) [Entitic vol]Ordered By: Mariajose Alfred on 08-24-2024 Platelet mean volume (Bld) [Entitic vol] Platelet mean volume [Entitic volume] in Blood by Automated count 6.3-10.7 [facility] Platelets Auto (Bld) [#/Vol] Ordered By: Mariajose Alfred on 08-24-2024 Platelets (Bld) [#/Vol] Platelets [#/volume] in Blood by Automated count 150-450 [facility] Protein Test strip (U) [Mass /Vol]Ordered By: Mariajose Alfred on 08-24-2024 Protein (U) [Mass/Vol] Protein [Mass/vol ume] in Urine by Test strip High Negative [facility] RBC Auto (Bld) [#/Vol]Ordere d By: Mariajose Alfred on 08-24-2024 RBC (Bld) [#/Vol] Erythrocytes [#/volu me] in Blood by Automated count 3.60-5.00 [facility] Specific gravity Test strip (U) [Rel density]Ordered By: Mariajose Alfred on 08-24-2024 Specific gravity (U) [Rel density] Specific gravity of Urine by Test strip 1.001-1.030 [facility] Urobilinogen Test strip (U) [Mass/Vol]Ordered By: Mariajose Alfred on 08-24-2024 Urobilinogen (U) [Mass/Vol] Urobilinogen [Mass/volume] in Urine by Test strip Normal [facility] pH Test strip (U)Ordered By: Mariajose Alfred on 08-24-2024 pH (U) pH of Urine by Test strip 5.0-9.0 [facility] Comprehensive Metabolic Pane santo 08-23-2024 Albumin [Mass/Vol] 4.4 g/dL Normal 3.5-5.7 [facility] Comment on above: Performed By: #### P TH #### [address] Albumin/Globulin [Mass ratio] 1.8 {ratio} Normal [facility] Comment on above: Performed By: #### P TH #### [address] ALP [Catalytic activity/Vol] 125 U/L High 34-104 [facility] Comment on above: Performed By: #### P TH #### [address] ALT [Catalytic activity/Vol] 4 U/L Low 7-52 [facility] Comment on above: Performed By: #### P TH #### [address] Anion gap [Moles/Vol] 15.4 mmol/L High 6.0-15.0 [facility] Comment on above: Performed By: #### P TH #### [address] AST [Catalytic activity/Vol] 26 U/L Normal 13-39 [facility] Comment on above: Performed By: #### P TH #### [address] Bilirubin [Mass/Vol] 0.7 mg/dL Normal 0.3-1.0 [facility] Comment on above: Performed By: #### P TH #### [address] Calcium [Mass/Vol] 9.9 mg/dL Normal 8.6-10.3 [facility] Comment on above: Performed By: #### P TH #### [address] Chloride [Moles/Vol] 107 mmol/L Normal 98-107 [facility] Comment on above: Performed By: #### P TH #### [address] CO2 [Moles/Vol] 25.0 mmol/L Normal 21.0-31.0 [facility] Comment on above: Performed By: #### P TH #### [address] Creatinine [Mass/Vol] 0.95 mg/dL Normal 0.60-1.20 [facility] Comment on above: Performed By: #### P TH #### [address] Creatinine Clr Calc Pharmacy 36.60 Normal [facility] Comment on above: Performed By: #### P TH #### [place] [address] [place] GFR/1.73 sq M.predicted MDRD (S/P/Bld) [Vol rate/Area] mL/min/{1.73_m2} Normal [facility] Comment on above: Performed By: #### P TH #### [address] Globulin (S) [Mass/Vol] 2.4 g/dL Normal [facility] Comment on above: Performed By: #### P TH #### [address] Glucose [Mass/Vol] 87 mg/dL Normal 70-100 [facility] Comment on above: Result Comment: [facility] [place] Glucose Reference Range is dependent on time and content of last meal. Glucose of more than 200 mg/dL in a nonstressed, ambulatory subject supports the diagnosis of Diabetes Mellitus. ADA recommended reference range Performed By: #### P TH #### [address] Potassium [Moles/Vol] 3.4 mmol/L Low 3.5-5.1 [facility] Comment on above: Performed By: #### P TH #### [address] Protein [Mass/Vol] 6.8 g/dL Normal 6.4-8.9 [facility] Comment on above: Performed By: #### P TH #### [address] Sodium [Moles/Vol] 144 mmol/L Normal 136-145 [facility] Comment on above: Performed By: #### P TH #### [address] Urea nitrogen [Mass/Vol] 20 mg/dL Normal 7-25 [facility] Comment on above: Performed By: #### P TH #### [address] Folate [Mass/volume] in Seru m or PlasmaOrdered By: Obaydah Daromar on 08-23-2024 Folate [Mass/Vol] Folate [Mass/volume] in Serum or Plasma >5.9 [facility] Comment on above: Folate reference ran ge: >5.9 ng/mlThe WHO technical consultation on folate and vitamin [id number] has determined that folate concentrations lessthan 4 ng/ml are considered deficient. Magnesiumon 08-23-2024 Magnesium [Mass/Vol] 1.8 mg/dL Low 1.9-2.7 [facility] Comment on above: Performed By: #### P TH #### [address] Magnesium [Mass/volume] in S sonya or PlasmaOrdered By: Obaydah Daromar on 08-23-2024 Magnesium [Mass/Vol] Magnesium [Mass/vol ume] in Serum or Plasma Low 1.9-2.7 [facility] Thyroid Stimulating Hormoneo n 08-23-2024 TSH Qn 0.86 m[IU]/L Normal 0.45-5.33 [facility] Comment on above: Result Comment: PERF ORMED BY: [address] [place] [address] PATHOLOGIST [employer] ANNE OLGUIN M.D. Performed By: #### C UU, ADDONUAPLUS #### [address] Thyrotropin [Units/volume] i n Serum or PlasmaOrdered By: Obaydah Daromar on 08-23-2024 TSH Qn Thyrotropin [Units/v olume] in Serum or Plasma 0.45-5.33 [facility] Vit. B12/Folate Profileon Cobalamin (Vitamin B12) [Mass/Vol] 590 pg/mL Normal 180-914 [facility] Comment on above: Performed By: #### C USteffany ADDONUAPLUS #### [facility] [address] Folate 37.0 ng/mL Normal >5.9 [facility] Comment on above: Result Comment: Mirella te reference range: >5.9 ng/ml The WHO technical consultation on folate and vitamin b12 deficiencies has determined that folate concentrations less than 4 ng/ml are considered deficient. Performed By: #### C UU, ADDONUAPLUS #### [address] Vitamin B12 ser/plasOrdered By: Mariajose Alfred on 08-23-2024 Cobalamin (Vitamin B12) [Mass/Vol] Vitamin B12 ser/plas 180-914 [facility] Basic Metabolic Panelon 08-09 Anion gap [Moles/Vol] 14.5 mmol/L Normal 6.0-15.0 [facility] Comment on above: Order Comment: Comme nt add Performed By: #### P TH #### [address] Calcium [Mass/Vol] 11.1 mg/dL High 8.6-10.3 [facility] Comment on above: Order Comment: Comme nt add Performed By: #### P TH #### [place] [address] [place] Chloride [Moles/Vol] 107 mmol/L Normal 98-107 [facility] Comment on above: Order Comment: Comme nt add Performed By: #### P TH #### [address] CO2 [Moles/Vol] 24.0 mmol/L Normal 21.0-31.0 [facility] Comment on above: Order Comment: Comme nt add Performed By: #### P TH #### [address] Creatinine [Mass/Vol] 1.17 mg/dL Normal 0.60-1.20 [facility] Comment on above: Order Comment: Comme nt add Performed By: #### P TH #### [address] Creatinine Clr Calc Pharmacy 33.53 Normal [facility] Comment on above: Order Comment: Comme nt add Result Comment: PERF ORMED BY: [place] [address] PATHOLOGIST [employer] ANNE OLGUIN M.D. Performed By: #### P TH #### [address] Estimated GFR 47.762 mL/Min Normal [facility] Comment on above: Order Comment: Comme nt add Performed By: #### P TH #### [address] Glucose [Mass/Vol] 72 mg/dL Normal 70-100 [facility] Comment on above: Order Comment: Comme nt add Result Comment: [place] Glucose Reference Range is dependent on time and content of last meal. Glucose of more than 200 mg/dL in a nonstressed, ambulatory subject supports the diagnosis of Diabetes Mellitus. ADA recommended reference range Performed By: #### P TH #### [address] Potassium [Moles/Vol] 3.5 mmol/L Normal 3.5-5.1 [facility] Comment on above: Order Comment: Comme nt add Performed By: #### P TH #### [address] Sodium [Moles/Vol] 142 mmol/L Normal 136-145 [facility] Comment on above: Order Comment: Comme nt add Performed By: #### P TH #### [address] Urea nitrogen [Mass/Vol] 16 mg/dL Normal 7-25 [facility] Comment on above: Order Comment: Comme nt add Performed By: #### P TH #### [address] Hemogram CBC Without Diffon 08-22-2024 Erythrocyte distribution width (RBC) [Ratio] 14.5 % Normal 11.9-15.3 [facility] Comment on above: Order Comment: Comme nt add Performed By: #### P TH #### [address] Hematocrit (Bld) [Volume fraction] 38.9 % Normal 34.0-46.4 [facility] Comment on above: Order Comment: Comme nt add Performed By: #### P TH #### [address] Hemoglobin (Bld) [Mass/Vol] 13.3 g/dL Normal 11.8-15.4 [facility] Comment on above: Order Comment: Comme nt add Performed By: #### P TH #### [address] MCH (RBC) [Entitic mass] 31.3 pg Normal 24.7-34.3 [facility] Comment on above: Order Comment: Comme nt add Performed By: #### P TH #### [address] MCV (RBC) [Entitic vol] 91.8 fL Normal 80-100 [facility] Comment on above: Order Comment: Comme nt add Performed By: #### P TH #### [address] Mean Corpuscular HGB Conc 34.1 g/dL Normal 32.0-35.0 [facility] Comment on above: Order Comment: Comme nt add Performed By: #### P TH #### [address] Platelet mean volume (Bld) [Entitic vol] 9.5 fL Normal 6.3-10.7 [facility] Comment on above: Order Comment: Comme nt add Result Comment: PERF ORMED BY: [address] [place] [address] PATHOLOGIST [employer] ANNE OLGUIN M.D. Performed By: #### P TH #### [address] Platelets (Bld) [#/Vol] 319 10*3/uL Normal 150-450 [facility] Comment on above: Order Comment: Comme nt add Performed By: #### P TH #### [address] RBC (Bld) [#/Vol] 4.24 10*6/uL Normal 3.60-5.00 [facility] Comment on above: Order Comment: Comme nt add Performed By: #### P TH #### [address] WBC (Bld) [#/Vol] 9.7 10*3/uL Normal 3.8-11.6 [facility] Comment on above: Order Comment: Comme nt add Performed By: #### P TH #### [address] Parathyrin.intact [Mass/volu me] in Serum or PlasmaOrdered By: Mariajose Alfred on 08-22-2024 Parathyrin.intact [Mass/Vol] Parathyrin.intact [Mass/volume] in Serum or Plasma [facility] Parathyroid Hormone Intacton 08-22-2024 Parathyroid Hormone Intact 56.2 pg/mL Normal [facility] Comment on above: Order Comment: Comme nt add Result Comment: PERF ORMED BY: [place] [address] PATHOLOGIST [employer] ANNE OLGUIN M.D. Performed By: #### P TH #### [address] Acanthocytes [Presence] in B lood by Light microscopyOrdered By: Ebony Scott on 08-21-2024 Acanthocytes LM Ql (Bld) Acanthocytes [Presence] in Blood by Light microscopy [facility] Basic Metabolic Panelon 08-09 Anion gap [Moles/Vol] 10.9 mmol/L Normal 6.0-15.0 [facility] Comment on above: Performed By: #### M G, BMP, SCAN CBC #### [facility] [address] [place] [address] [place] Calcium [Mass/Vol] 10.6 mg/dL High 8.6-10.3 [facility] Comment on above: Performed By: #### M G, BMP, SCAN CBC #### [facility] [address] [place] [address] [place] Chloride [Moles/Vol] 108 mmol/L High 98-107 [facility] Comment on above: Performed By: #### M G, BMP, SCAN CBC #### [address] CO2 [Moles/Vol] 23.8 mmol/L Normal 21.0-31.0 [facility] Comment on above: Performed By: #### M G, BMP, SCAN CBC #### [place] [address] [place] Creatinine [Mass/Vol] 1.15 mg/dL Normal 0.60-1.20 [facility] Comment on above: Performed By: #### M G, BMP, SCAN CBC #### [place] [address] [place] Creatinine Clr Calc Pharmacy 33.54 Normal [facility] Comment on above: Performed By: #### M G, BMP, SCAN CBC #### [place] [address] [place] Estimated GFR 48.760 mL/Min Normal [facility] Comment on above: Performed By: #### M G, BMP, SCAN CBC #### [place] [address] [place] Glucose [Mass/Vol] 89 mg/dL Normal 70-100 [facility] Comment on above: Result Comment: [place] Glucose Reference Range is dependent on time and content of last meal. Glucose of more than 200 mg/dL in a nonstressed, ambulatory subject supports the diagnosis of Diabetes Mellitus. ADA recommended reference range Performed By: #### M G, BMP, SCAN CBC #### [address] Potassium [Moles/Vol] 3.7 mmol/L Normal 3.5-5.1 [facility] Comment on above: Performed By: #### M G, BMP, SCAN CBC #### [facility] [address] [place] [address] [place] Sodium [Moles/Vol] 139 mmol/L Normal 136-145 [facility] Comment on above: Performed By: #### M G, BMP, SCAN CBC #### [facility] [address] [place] [address] [place] Urea nitrogen [Mass/Vol] 19 mg/dL Normal 7-25 [facility] Comment on above: Performed By: #### M G, BMP, SCAN CBC #### [facility] [address] [place] [address] [place] Basophils Auto (Bld) [#/Vol] Ordered By: Ebony Scott on 08-21-2024 Basophils (Bld) [#/Vol] Automated basophil count 0.0-0.2 [facility] Basophils/100 WBC Auto (Bld) Ordered By: Ebony Scott on 08-21-2024 Basophils/100 WBC (Bld) Automated basophil % . [facility] Blood Cultureon 08-21-2024 Bacteria identified Cx Nom (Bld) NO GROWTH 5 DAYS PERFORMED BY: [place] [address] PATHOLOGIST [employer] ANNE OLGUIN M.D. Normal [facility] Comment on above: Performed By: #### C UU, ADDONUAPLUS #### [place] [address] [place] cells [Presence] in Blo od by Light microscopyOrdered By: Ebony Scott on 08-21-2024 [place] cells LM Ql (Bld) [place] cells [Prese nce] in Blood by Light microscopy [facility] Eosinophils Auto (Bld) [#/Vo l]Ordered By: Ebony Scott on 08-21-2024 Eosinophils (Bld) [#/Vol] Automated eosinophil count 0.0-0.45 [facility] Eosinophils/100 WBC Auto (Bl d)Ordered By: Ebony Scott on 08-21-2024 Eosinophils/100 WBC (Bld) Automated eosinophil % . [facility] Erythrocyte morphology findi ng [Identifier] in BloodOrdered By: Ebony Scott on 08-21-2024 RBC morphology finding Nom (Bld) RBC morphology [facility] Laboratory - Microbiology an d Antimicrobial susceptibilityOrdered By: Damaso Charlton on 08-21-2024 Bacteria identified Cx Nom (Bld) NO GROWTH 5 DAYS [facility] Lymphocytes Auto (Bld) [#/Vo l]Ordered By: Ebony Scott on 08-21-2024 Lymphocytes (Bld) [#/Vol] Lymphocytes [#/volume] in Blood by Automated count 1.00-4.8 [facility] Lymphocytes/100 WBC Auto (Bl d)Ordered By: Ebony Scott on 08-21-2024 Lymphocytes/100 WBC (Bld) Lymphocytes/100 leukocytes in Blood by Automated count . [facility] Magnesiumon 08-21-2024 Magnesium [Mass/Vol] 1.7 mg/dL Low 1.9-2.7 [facility] Comment on above: Result Comment: PERF ORMED BY: [place] [address] PATHOLOGIST [employer] ANNE OLGUIN M.D. Performed By: #### P TH #### [address] Monocytes Auto (Bld) [#/Vol] Ordered By: Ebony Scott on 08-21-2024 Monocytes (Bld) [#/Vol] Automated blood monocyte count High 0.0-0.8 [facility] Monocytes/100 WBC Auto (Bld) Ordered By: Ebony Scott on 08-21-2024 Monocytes/100 WBC (Bld) Automated monocyte % . [facility] Neutrophils Auto (Bld) [#/Vo l]Ordered By: Ebony Scott on 08-21-2024 Neutrophils (Bld) [#/Vol] Neutrophils [#/volume] in Blood by Automated count 1.8-7.7 [facility] Neutrophils/100 WBC Auto (Bl d)Ordered By: Ebony Scott on 08-21-2024 Neutrophils/100 WBC (Bld) Automated neutrophil % . [facility] Nucleated erythrocytes [Pres ence] in Blood by Automated countOrdered By: Ebony Scott on 08-21-2024 Nucleated RBC Auto Ql (Bld) Nucleated erythrocytes [Presence] in Blood by Automated count 0-0.5 [facility] Platelet adequacy [Presence] in Blood by Light microscopyOrdered By: Ebony Scott on 08-21-2024 Platelets LM Ql (Bld) Platelet adequacy [Presence] in Blood by Light microscopy Normal [facility] Platelet morphology finding [Identifier] in BloodOrdered By: Ebony Scott on 08-21-2024 Platelet morphology finding Nom (Bld) Platelet morphology finding [Identifier] in Blood [facility] Platelets Large [Presence] i n Blood by Light microscopyOrdered By: Ebony Scott on 08-21-2024 Platelets Large LM Ql (Bld) Platelets Large [Presence] in Blood by Light microscopy [facility] Poikilocytosis [Presence] in Blood by Light microscopyOrdered By: Ebony Scott on 08-21-2024 Poikilocytosis LM Ql (Bld) Poikilocytosis [Presence] in Blood by Light microscopy [facility] Scan and CBCon 08-21-2024 Acanthocytes Slight Normal [facility] Comment on above: Performed By: #### P TH #### [address] Basophils (Bld) [#/Vol] 0.1 10*3/uL Normal 0.0-0.2 [facility] Comment on above: Performed By: #### P TH #### [place] [address] [place] Basophils/100 WBC (Bld) 1.4 % Normal . [facility] Comment on above: Performed By: #### P TH #### [place] [address] [place] Crenated RBC Slight Normal [facility] Comment on above: Performed By: #### P TH #### [place] [address] [place] Eosinophils (Bld) [#/Vol] 0.2 10*3/uL Normal 0.0-0.45 [facility] Comment on above: Performed By: #### P TH #### [address] Eosinophils/100 WBC (Bld) 3.3 % Normal . [facility] Comment on above: Performed By: #### P TH #### [address] Erythrocyte distribution width (RBC) [Ratio] 14.7 % Normal 11.9-15.3 [facility] Comment on above: Performed By: #### P TH #### [address] Hematocrit (Bld) [Volume fraction] 38.8 % Normal 34.0-46.4 [facility] Comment on above: Performed By: #### P TH #### [address] Hemoglobin (Bld) [Mass/Vol] 13.2 g/dL Normal 11.8-15.4 [facility] Comment on above: Performed By: #### P TH #### [address] Large Platelets Slight Normal [facility] Comment on above: Result Comment: PERF ORMED BY: [place] [address] PATHOLOGIST [employer] ANNE OLGUIN M.D. Performed By: #### P TH #### [address] Lymphocytes (Bld) [#/Vol] 2.4 10*3/uL Normal 1.00-4.8 [facility] Comment on above: Performed By: #### P TH #### [address] Lymphocytes/100 WBC (Bld) 34.8 % Normal . [facility] Comment on above: Performed By: #### P TH #### [address] MCH (RBC) [Entitic mass] 31.7 pg Normal 24.7-34.3 [facility] Comment on above: Performed By: #### P TH #### [address] MCV (RBC) [Entitic vol] 93.3 fL Normal 80-100 [facility] Comment on above: Performed By: #### P TH #### [address] Mean Corpuscular HGB Conc 34.0 g/dL Normal 32.0-35.0 [facility] Comment on above: Performed By: #### P TH #### [address] Monocytes (Bld) [#/Vol] 1.2 10*3/uL High 0.0-0.8 [facility] Comment on above: Performed By: #### P TH #### [address] Monocytes/100 WBC (Bld) 17.1 % Normal . [facility] Comment on above: Performed By: #### P TH #### [address] Neutrophils (Bld) [#/Vol] 3.0 10*3/uL Normal 1.8-7.7 [facility] Comment on above: Performed By: #### P TH #### [address] Neutrophils/100 WBC (Bld) 43.4 % Normal . [facility] Comment on above: Performed By: #### P TH #### [address] NRBC% 0.1 /100{WBC} Normal 0-0.5 [facility] Comment on above: Performed By: #### P TH #### [address] Platelet Estimate Normal Normal Normal [facility] Comment on above: Performed By: #### P TH #### [address] [place] [address] [place] Platelet mean volume (Bld) [Entitic vol] 9.5 fL Normal 6.3-10.7 [facility] Comment on above: Performed By: #### P TH #### [address] Platelets (Bld) [#/Vol] 307 10*3/uL Normal 150-450 [facility] Comment on above: Performed By: #### P TH #### [address] Poikilocytosis Slight Normal [facility] Comment on above: Performed By: #### P TH #### [address] RBC (Bld) [#/Vol] 4.16 10*6/uL Normal 3.60-5.00 [facility] Comment on above: Performed By: #### P TH #### [address] WBC (Bld) [#/Vol] 6.9 10*3/uL Normal 3.8-11.6 [facility] Comment on above: Performed By: #### P TH #### [address] WBC Auto (Bld) [#/Vol]Ordere d By: Ebony Scott on 08-21-2024 WBC (Bld) [#/Vol] Leukocytes [#/volume ] in Blood by Automated count 3.8-11.6 [facility] Alanine aminotransferase [En zymatic activity/volume] in Serum or PlasmaOrdered By: Damaso Charlton on 08-20-2024 ALT [Catalytic activity/Vol] Alanine aminotransferase [Enzymatic activity/volume] in Serum or Plasma Low 7-52 [facility] Albumin [Mass/volume] in Ser um or Plasma by Bromocresol green (BCG) dye binding methoOrdered By: aDmaso Charlton on 08-20-2024 Albumin BCG dye [Mass/Vol] Albumin [Mass/volume] in Serum or Plasma by Bromocresol green (BCG) dye binding metho 3.5-5.7 [facility] Alkaline phosphatase [Enzyma tic activity/volume] in Serum or PlasmaOrdered By: Damaso Charlton on 08-20-2024 ALP [Catalytic activity/Vol] Alkaline phosphatase [Enzymatic activity/volume] in Serum or Plasma High 34-104 [facility] Appearance of UrineOrdered B y: Damaso Charlton on 08-20-2024 Appearance (U) Urine appearance Abnormal Clear [facility] Aspartate aminotransferase [ Enzymatic activity/volume] in Serum or PlasmaOrdered By: Damaso Charlton on 08-20-2024 AST [Catalytic activity/Vol] Aspartate aminotransferase [Enzymatic activity/volume] in Serum or Plasma 13-39 [facility] Bacteria [Presence] in Urine by AutomatedOrdered By: Damaso Charlton on 08-20-2024 Bacteria Auto Ql (U) Bacteria [Presence] in Urine by Automated None Seen [facility] Basophils Auto (Bld) [#/Vol] Ordered By: Damaso Charlton on 08-20-2024 Basophils (Bld) [#/Vol] Automated basophil count 0.0-0.2 [facility] Basophils/100 WBC Auto (Bld) Ordered By: Damaso Charlton on 08-20-2024 Basophils/100 WBC (Bld) Automated basophil % . [facility] Bilirubin Test strip Ql (U)O rdered By: Damaso Charlton on 08-20-2024 Bilirubin Ql (U) Bilirubin.total [Pre sence] in Urine by Test strip Negative [facility] Bilirubin.total [Mass/volume ] in Serum or PlasmaOrdered By: Damaso Charlton on 08-20-2024 Bilirubin [Mass/Vol] Bilirubin.total [Mass/volume] in Serum or Plasma 0.3-1.0 [facility] Blood Cultureon 08-20-2024 Bacteria identified Cx Nom (Bld) NO GROWTH 5 DAYS PERFORMED BY: [facility] [address] [place] [address] PATHOLOGIST [employer] ANNE OLGUIN M.D. Normal [facility] Comment on above: Performed By: #### C UU, ADDONUAPLUS #### [facility] [address] [place] [address] [place] Calcium [Mass/volume] in Ser um or PlasmaOrdered By: Damaso Charlton on 08-20-2024 Calcium [Mass/Vol] Calcium [Mass/volume ] in Serum or Plasma High 8.6-10.3 [facility] Calcium oxalate crystals [Pr esence] in Urine by Computer assisted methodOrdered By: Damaso Charlton on 08-20-2024 Calcium oxalate crystals Computer assisted Ql (U) Calcium oxalate crystals [Presence] in Urine by Computer assisted method [facility] Carbon dioxide, total [Moles /volume] in Serum or PlasmaOrdered By: Damaso Charlton on 08-20-2024 CO2 [Moles/Vol] Carbon dioxide, tota l [Moles/volume] in Serum or Plasma 21.0-31.0 [facility] Chloride [Moles/volume] in S sonya or PlasmaOrdered By: Damaso Charlton on 08-20-2024 Chloride [Moles/Vol] Chloride [Moles/vol ume] in Serum or Plasma 98-107 [facility] Color Auto (U)Ordered By: Tyler Charlton on 08-20-2024 Color (U) Color of Urine by Auto Yellow Fi [facility] Comprehensive Metabolic Pane santo 08-20-2024 Albumin [Mass/Vol] 4.4 g/dL Normal 3.5-5.7 [facility] Comment on above: Performed By: #### C UU, ADDONUAPLUS #### [facility] [address] Albumin/Globulin [Mass ratio] 1.8 {ratio} Normal [facility] Comment on above: Performed By: #### C UU, ADDONUAPLUS #### [facility] [address] [place] [id number] [place] ALP [Catalytic activity/Vol] 122 U/L High 34-104 [facility] Comment on above: Performed By: #### C UU, ADDONUAPLUS #### [facility] [address] [place] [id number] [place] ALT [Catalytic activity/Vol] U/L Low 7-52 [facility] Comment on above: Performed By: #### C UU, ADDONUAPLUS #### [facility] [address] [place] [address] Anion gap [Moles/Vol] 11.9 mmol/L Normal 6.0-15.0 [facility] Comment on above: Performed By: #### C UU, ADDONUAPLUS #### [facility] [address] [place] [address] AST [Catalytic activity/Vol] 14 U/L Normal 13-39 [facility] Comment on above: Performed By: #### C UU, ADDONUAPLUS #### [address] Bilirubin [Mass/Vol] 0.5 mg/dL Normal 0.3-1.0 [facility] Comment on above: Performed By: #### C UU, ADDONUAPLUS #### [address] Calcium [Mass/Vol] 11.5 mg/dL High 8.6-10.3 [facility] Comment on above: Performed By: #### C UU, ADDONUAPLUS #### [address] Chloride [Moles/Vol] 103 mmol/L Normal 98-107 [facility] Comment on above: Performed By: #### C UU, ADDONUAPLUS #### [address] CO2 [Moles/Vol] 24.2 mmol/L Normal 21.0-31.0 [facility] Comment on above: Performed By: #### C UU, ADDONUAPLUS #### [address] Creatinine [Mass/Vol] 1.43 mg/dL High 0.60-1.20 [facility] Comment on above: Performed By: #### C UU, ADDONUAPLUS #### [address] Creatinine Clr Calc Pharmacy 25.07 Normal [facility] Comment on above: Result Comment: PERF ORMED BY: [address] [place] [address] PATHOLOGIST [employer] ANNE OLGUIN M.D. Performed By: #### C UU, ADDONUAPLUS #### [address] Estimated GFR 37.541 mL/Min Normal [facility] Comment on above: Performed By: #### C UU, ADDONUAPLUS #### [address] Globulin (S) [Mass/Vol] 2.4 g/dL Normal [facility] Comment on above: Performed By: #### C UU, ADDONUAPLUS #### [address] Glucose [Mass/Vol] 90 mg/dL Normal 70-100 [facility] Comment on above: Result Comment: [facility] [place] Glucose Reference Range is dependent on time and content of last meal. Glucose of more than 200 mg/dL in a nonstressed, ambulatory subject supports the diagnosis of Diabetes Mellitus. ADA recommended reference range Performed By: #### C UU, ADDONUAPLUS #### [address] Potassium [Moles/Vol] 4.1 mmol/L Normal 3.5-5.1 [facility] Comment on above: Performed By: #### C UU, ADDONUAPLUS #### [address] Protein [Mass/Vol] 6.8 g/dL Normal 6.4-8.9 [facility] Comment on above: Performed By: #### C UU, ADDONUAPLUS #### [address] Sodium [Moles/Vol] 135 mmol/L Low 136-145 [facility] Comment on above: Performed By: #### C UU, ADDONUAPLUS #### [address] Urea nitrogen [Mass/Vol] 26 mg/dL High 7-25 [facility] Comment on above: Performed By: #### C UU, ADDONUAPLUS #### [facility] [address] [place] [address] Creatinine [Mass/volume] in Serum or PlasmaOrdered By: Damaso Charlton on 08-20-2024 Creatinine [Mass/Vol] Creatinine [Mass/v olume] in Serum or Plasma High 0.60-1.20 [facility] Dipstick and Microscopicon 0 08-20-2024 Appearance (U) Cloudy Critically abnormal Clear [facility] Comment on above: Order Comment: Name Collection Type:: Clean-Voided Midstream Performed By: #### C UU, ADDONUAPLUS #### [address] Bacteria,Urine Rare Normal None Seen [facility] Comment on above: Order Comment: Name Collection Type:: Clean-Voided Midstream Performed By: #### C UU, ADDONUAPLUS #### [address] Bilirubin,Urine Negative Normal Negative [facility] Comment on above: Order Comment: Name Collection Type:: Clean-Voided Midstream Performed By: #### C UU, ADDONUAPLUS #### [address] Calcium Oxalate Crystals,Urine 2+ Normal [facility] Comment on above: Order Comment: Name Collection Type:: Clean-Voided Midstream Performed By: #### C UU, ADDONUAPLUS #### [address] Color (U) Light-Yellow Normal Yellow [facility] Comment on above: Order Comment: Name Collection Type:: Clean-Voided Midstream Performed By: #### C UU, ADDONUAPLUS #### [address] Glucose Ql (U) Normal Normal Normal [facility] Comment on above: Order Comment: Name Collection Type:: Clean-Voided Midstream Performed By: #### C UU, ADDONUAPLUS #### [address] [place] [address] [place] Hyaline Casts,Urine 0-8 Normal 0-8 [facility] Comment on above: Order Comment: Name Collection Type:: Clean-Voided Midstream Performed By: #### C UU, ADDONUAPLUS #### [address] Ketones Ql (U) Trace High Negative [facility] Comment on above: Order Comment: Name Collection Type:: Clean-Voided Midstream Performed By: #### C UU, ADDONUAPLUS #### [address] Leukocyte esterase Test strip Ql (U) 4+ High Negative [facility] Comment on above: Order Comment: Name Collection Type:: Clean-Voided Midstream Performed By: #### C UU, ADDONUAPLUS #### [place] [address] [place] Mucus,Urine Rare Normal [facility] Comment on above: Order Comment: Name Collection Type:: Clean-Voided Midstream Result Comment: PERF ORMED BY: [place] [address] PATHOLOGIST [employer] ANNE OLGUIN M.D. Performed By: #### C UU, ADDONUAPLUS #### [place] [address] [place] Nitrite,Urine Negative Normal Negative [facility] Comment on above: Order Comment: Name Collection Type:: Clean-Voided Midstream Performed By: #### C UU, ADDONUAPLUS #### [place] [address] [place] Occult Blood,Urine Negative Normal Negative [facility] Comment on above: Order Comment: Name Collection Type:: Clean-Voided Midstream Result Comment: PERF ORMED BY: [place] [address] PATHOLOGIST [employer] ANNE OLGUIN M.D. Performed By: #### C UU, ADDONUAPLUS #### [address] pH (U) 6.0 [pH] Normal 5.0-9.0 [facility] Comment on above: Order Comment: Name Collection Type:: Clean-Voided Midstream Performed By: #### C UU, ADDONUAPLUS #### [address] Protein,Urine Trace High Negative [facility] Comment on above: Order Comment: Name Collection Type:: Clean-Voided Midstream Performed By: #### C UU, ADDONUAPLUS #### [address] RBC,Urine 5-9 High 0-4 [facility] Comment on above: Order Comment: Name Collection Type:: Clean-Voided Midstream Performed By: #### C UU, ADDONUAPLUS #### [address] Specificy [place],Urine 1.014 Normal 1.001-1.030 [facility] Comment on above: Order Comment: Name Collection Type:: Clean-Voided Midstream Performed By: #### C UU, ADDONUAPLUS #### [address] Squamous Epithelial Cell,Urine 3-4 High 0-2 [facility] Comment on above: Order Comment: Name Collection Type:: Clean-Voided Midstream Performed By: #### C UU, ADDONUAPLUS #### [address] Urobilinogen,Urine Normal Normal Normal [facility] Comment on above: Order Comment: Name Collection Type:: Clean-Voided Midstream Performed By: #### C UU, ADDONUAPLUS #### [address] WBC CLUMP, Urine Few High None Seen [facility] Comment on above: Order Comment: Name Collection Type:: Clean-Voided Midstream Performed By: #### C UU, ADDONUAPLUS #### [address] WBC,Urine 50-100 High 0-4 [facility] Comment on above: Order Comment: Name Collection Type:: Clean-Voided Midstream Performed By: #### C UU, DIANNA #### [facility] [address] Eosinophils Auto (Bld) [#/Vo l]Ordered By: Damaso Charlton on 08-20-2024 Eosinophils (Bld) [#/Vol] Automated eosinophil count 0.0-0.45 [facility] Eosinophils/100 WBC Auto (Bl d)Ordered By: Damaso Charlton on 08-20-2024 Eosinophils/100 WBC (Bld) Automated eosinophil % . [facility] Epithelial cells.squamous [# /area] in Urine sediment by Automated countOrdered By: Damaso Charlton on 08-20-2024 Epithelial cells.squamous Auto (Urine sed) [#/Area] Epithelial cells.squamous [#/area] in Urine sediment by Automated count High 0-2 [facility] Erythrocyte distribution wid th Auto (RBC) [Ratio]Ordered By: Damaso Charlton on 08-20-2024 Erythrocyte distribution width (RBC) [Ratio] Erythrocyte distribution width [Ratio] by Automated count 11.9-15.3 [facility] Erythrocyte morphology findi ng [Identifier] in BloodOrdered By: Damaso Charlton on 08-20-2024 RBC morphology finding Nom (Bld) RBC morphology [facility] Erythrocytes [#/area] in Uri ne sediment by Automated countOrdered By: Damaso Charlton on 08-20-2024 RBC Auto (Urine sed) [#/Area] Erythrocytes [#/area] in Urine sediment by Automated count High 0-4 [facility] Globulin Calc (S) [Mass/Vol] Ordered By: Damaso Charlton on 08-20-2024 Globulin (S) [Mass/Vol] Serum globulin measurement by calculation (mass/volume) [facility] Glucose [Mass/volume] in Ser um or PlasmaOrdered By: Damaso Charlton on 08-20-2024 Glucose [Mass/Vol] Glucose [Mass/volume ] in Serum or Plasma 70-100 [facility] Comment on above: ADA recommended refe rence rangeRandom Glucose Reference Range is dependent on time and content of last meal. Glucose of more than 200 mg/dL in a nonstressed, ambulatory subject supports the diagnosis of Diabetes Mellitus. Glucose [Mass/volume] in Uri ne by Test stripOrdered By: Damaso Charlton on 08-20-2024 Glucose Test strip (U) [Mass/Vol] Glucose [Mass/volume] in Urine by Test strip Normal [facility] Hematocrit Auto (Bld) [Volum e fraction]Ordered By: Damaso Charlton on 08-20-2024 Hematocrit (Bld) [Volume fraction] Hematocrit [Volume Fraction] of Blood by Automated count 34.0-46.4 [facility] Hemoglobin Test strip Ql (U) Ordered By: Damaso Charlton on 08-20-2024 Hemoglobin Ql (U) Hemoglobin [Presence ] in Urine by Test strip Negative [facility] Hemoglobin [Mass/volume] in BloodOrdered By: Damaso Charlton on 08-20-2024 Hemoglobin (Bld) [Mass/Vol] Hemoglobin [Mass/volume] in Blood 11.8-15.4 [facility] Hyaline casts [#/area] in Ur ine sediment by Automated countOrdered By: Damaso Charlton on 08-20-2024 Hyaline casts Auto (Urine sed) [#/Area] Hyaline casts [#/area] in Urine sediment by Automated count 0-8 [facility] Ketones Test strip Ql (U)Ord ered By: Damaso Charlton on 08-20-2024 Ketones Ql (U) Ketones [Presence] i n Urine by Test strip High Negative [facility] Laboratory - Microbiology an d Antimicrobial susceptibilityOrdered By: Damaso Charlton on 08-20-2024 Bacteria identified Cx Nom (Bld) NO GROWTH 5 DAYS [facility] Lactate [Moles/volume] in Se rum or PlasmaOrdered By: Damaso Charlton on 08-20-2024 Lactate [Moles/Vol] Lactate [Moles/volum e] in Serum or Plasma 0.5-1.9 [facility] Comment on above: Lactic Acid referenc e range has been updated to 0.5 1.9 mmol/L and the critical range of 2.0 or greater. Lactic Acidon 08-20-2024 Lactate [Moles/Vol] 0.9 mmol/L Normal 0.5-1.9 [facility] Comment on above: Result Comment: Lact ic Acid reference range has been updated to 0.5 ? 1.9 mmol/L and the critical range of 2.0 or greater. PERFORMED BY: [place] [address] PATHOLOGIST [employer] ANNE OLGUIN M.D. Performed By: #### C UU, DIANNA #### [address] Leukocyte clumps [Presence] in Urine by AutomatedOrdered By: Damaso Charlton on 08-20-2024 Leukocyte clumps Auto Ql (U) Leukocyte clumps [Presence] in Urine by Automated High None Seen [facility] Leukocyte esterase [Presence ] in Urine by Test stripOrdered By: Damaso Charlton on 08-20-2024 Leukocyte esterase Test strip Ql (U) Leukocyte esterase [Presence] in Urine by Test strip High Negative [facility] Leukocytes [#/area] in Urine sediment by Automated countOrdered By: Damaso Charlton on 08-20-2024 WBC Auto (Urine sed) [#/Area] Leukocytes [#/area] in Urine sediment by Automated count High 0-4 [facility] Leukocytes [#/volume] correc ej for nucleated erythrocytes in Blood by Automated counOrdered By: Damaso Charlton on 08-20-2024 WBC corrected for nucl RBC Auto (Bld) [#/Vol] Leukocytes [#/volume] corrected for nucleated erythrocytes in Blood by Automated coun 3.8-11.6 [facility] Lymphocytes Auto (Bld) [#/Vo l]Ordered By: Damaso Charlton on 08-20-2024 Lymphocytes (Bld) [#/Vol] Lymphocytes [#/volume] in Blood by Automated count 1.00-4.8 [facility] Lymphocytes/100 WBC Auto (Bl d)Ordered By: Damaso Charlton on 08-20-2024 Lymphocytes/100 WBC (Bld) Lymphocytes/100 leukocytes in Blood by Automated count . [facility] MCH Auto (RBC) [Entitic mass ]Ordered By: Damaso Charlton on 08-20-2024 MCH (RBC) [Entitic mass] MCH [Entitic mass] by Automated count 24.7-34.3 [facility] MCHC Auto (RBC) [Mass/Vol]Or dered By: Damaso Charlton on 08-20-2024 MCHC (RBC) [Mass/Vol] MCHC [Mass/volume] by Automated count 32.0-35.0 [facility] MCV Auto (RBC) [Entitic vol] Ordered By: Damaso Charlton on 08-20-2024 MCV (RBC) [Entitic vol] MCV [Entitic volume] by Automated count 80-100 [facility] Monocyte distribution width [Entitic volume] in Blood by AutomatedOrdered By: Damaso Charlton on 08-20-2024 Monocyte distribution width Auto (Bld) [Entitic vol] Monocyte distribution width [Entitic volume] in Blood by Automated 0.00-20.00 [facility] Monocytes Auto (Bld) [#/Vol] Ordered By: Damaso Charlton on 08-20-2024 Monocytes (Bld) [#/Vol] Automated blood monocyte count High 0.0-0.8 [facility] Monocytes/100 WBC Auto (Bld) Ordered By: Damaso Charlton on 08-20-2024 Monocytes/100 WBC (Bld) Automated monocyte % . [facility] Mucus [Presence] in Urine by AutomatedOrdered By: Damaso Charlton on 08-20-2024 Mucus Auto Ql (U) Mucus [Presence] in Urine by Automated [facility] Neutrophils Auto (Bld) [#/Vo l]Ordered By: Damaso Charlton on 08-20-2024 Neutrophils (Bld) [#/Vol] Neutrophils [#/volume] in Blood by Automated count 1.8-7.7 [facility] Neutrophils/100 WBC Auto (Bl d)Ordered By: Damaso Charlton on 08-20-2024 Neutrophils/100 WBC (Bld) Automated neutrophil % . [facility] Nitrite Test strip Ql (U)Ord ered By: Damaso Charlton on 08-20-2024 Nitrite Ql (U) Nitrite [Presence] i n Urine by Test strip Negative [facility] No Panel InformationOrdered By: Damaso Charlton on 08-20-2024 Estimated GFR (CKD-EPI) 37.541 mL/Min [facility] Creatinine Clearance (Chem 25.07 [facility] Nucleated erythrocytes [Pres ence] in Blood by Automated countOrdered By: Damaso Charlton on 08-20-2024 Nucleated RBC Auto Ql (Bld) Nucleated erythrocytes [Presence] in Blood by Automated count 0-0.5 [facility] Platelet adequacy [Presence] in Blood by Light microscopyOrdered By: Damaso Charlton on 08-20-2024 Platelets LM Ql (Bld) Platelet adequacy [Presence] in Blood by Light microscopy Normal [facility] Platelet mean volume Auto (B ld) [Entitic vol]Ordered By: Damaso Charlton on 08-20-2024 Platelet mean volume (Bld) [Entitic vol] Platelet mean volume [Entitic volume] in Blood by Automated count 6.3-10.7 [facility] Platelet morphology finding [Identifier] in BloodOrdered By: Damaso Charlton on 08-20-2024 Platelet morphology finding Nom (Bld) Platelet morphology finding [Identifier] in Blood [facility] Platelets Auto (Bld) [#/Vol] Ordered By: Damaso Charlton on 08-20-2024 Platelets (Bld) [#/Vol] Platelets [#/volume] in Blood by Automated count 150-450 [facility] Platelets Large [Presence] i n Blood by Light microscopyOrdered By: Damaso Charlton on 08-20-2024 Platelets Large LM Ql (Bld) Platelets Large [Presence] in Blood by Light microscopy [facility] Potassium [Moles/volume] in Serum or PlasmaOrdered By: Damaso Charlton on 08-20-2024 Potassium [Moles/Vol] Potassium [Moles/v olume] in Serum or Plasma 3.5-5.1 [facility] Protein Test strip (U) [Mass /Vol]Ordered By: Damaso Charlton 08-20-2024 Protein (U) [Mass/Vol] Protein [Mass/vol ume] in Urine by Test strip High Negative [facility] Protein [Mass/volume] in Ser um or PlasmaOrdered By: Damaso Charlton 08-20-2024 Protein [Mass/Vol] Protein [Mass/volume ] in Serum or Plasma 6.4-8.9 [facility] RBC Auto (Bld) [#/Vol]Ordere d By: Damaso Charlton on 08-20-2024 RBC (Bld) [#/Vol] Erythrocytes [#/volu me] in Blood by Automated count 3.60-5.00 [facility] Scan and CBCon 08-20-2024 Basophils (Bld) [#/Vol] 0.1 10*3/uL Normal 0.0-0.2 [facility] Comment on above: Result Comment: PERF ORMED BY: [place] [address] PATHOLOGIST [employer] ANNE OLGUIN M.D. Performed By: #### C UU, ADDONUAPLUS #### [address] Basophils/100 WBC (Bld) 1.7 % Normal . [facility] Comment on above: Performed By: #### C UU, ADDONUAPLUS #### [address] Eosinophils (Bld) [#/Vol] 0.2 10*3/uL Normal 0.0-0.45 [facility] Comment on above: Performed By: #### C UU, ADDONUAPLUS #### [address] Eosinophils/100 WBC (Bld) 2.1 % Normal . [facility] Comment on above: Performed By: #### C UU, ADDONUAPLUS #### [address] Erythrocyte distribution width (RBC) [Ratio] 14.6 % Normal 11.9-15.3 [facility] Comment on above: Performed By: #### C UU, ADDONUAPLUS #### [address] Hematocrit (Bld) [Volume fraction] 38.4 % Normal 34.0-46.4 [facility] Comment on above: Performed By: #### C UU, ADDONUAPLUS #### [address] Hemoglobin (Bld) [Mass/Vol] 13.1 g/dL Normal 11.8-15.4 [facility] Comment on above: Performed By: #### C UU, ADDONUAPLUS #### [address] Large Platelets Slight Normal [facility] Comment on above: Result Comment: PERF ORMED BY: [place] [address] PATHOLOGIST [employer] ANNE OLGUIN M.D. Performed By: #### C USteffany ADDONUAPLUS #### [address] Lymphocytes (Bld) [#/Vol] 2.7 10*3/uL Normal 1.00-4.8 [facility] Comment on above: Performed By: #### Tha STREETER ADDONUAPLUS #### [address] Lymphocytes/100 WBC (Bld) 34.8 % Normal . [facility] Comment on above: Performed By: #### C FERDINAND ADDONUAPLUS #### [address] MCH (RBC) [Entitic mass] 31.4 pg Normal 24.7-34.3 [facility] Comment on above: Performed By: #### C USteffany ADDONUAPLUS #### [address] MCV (RBC) [Entitic vol] 92.2 fL Normal 80-100 [facility] Comment on above: Performed By: #### C USteffany ADDONUAPLUS #### [address] Mean Corpuscular HGB Conc 34.1 g/dL Normal 32.0-35.0 [facility] Comment on above: Performed By: #### C USteffany ADDONUAPLUS #### [place] [address] [place] Monocytes (Bld) [#/Vol] 1.0 10*3/uL High 0.0-0.8 [facility] Comment on above: Performed By: #### C UU, ADDONUAPLUS #### [address] Monocytes/100 WBC (Bld) 15.03 % Normal 0.00-20.00 [facility] Comment on above: Performed By: #### C UU, ADDONUAPLUS #### [address] Monocytes/100 WBC (Bld) 13.1 % Normal . [facility] Comment on above: Performed By: #### C UU, ADDONUAPLUS #### [address] Neutrophils (Bld) [#/Vol] 3.8 10*3/uL Normal 1.8-7.7 [facility] Comment on above: Performed By: #### C UU, ADDONUAPLUS #### [address] Neutrophils/100 WBC (Bld) 48.3 % Normal . [facility] Comment on above: Performed By: #### C UU, ADDONUAPLUS #### [address] NRBC% 0.2 /100{WBC} Normal 0-0.5 [facility] Comment on above: Performed By: #### C UU, ADDONUAPLUS #### [address] Platelet Estimate Normal Normal Normal [facility] Comment on above: Performed By: #### C UU, ADDONUAPLUS #### [address] Platelet mean volume (Bld) [Entitic vol] 9.4 fL Normal 6.3-10.7 [facility] Comment on above: Performed By: #### C UU, ADDONUAPLUS #### [facility] [address] Platelets (Bld) [#/Vol] 314 10*3/uL Normal 150-450 [facility] Comment on above: Performed By: #### C UU, ADDONUAPLUS #### [facility] [address] RBC (Bld) [#/Vol] 4.16 10*6/uL Normal 3.60-5.00 [facility] Comment on above: Performed By: #### C UU, ADDONUAPLUS #### [facility] [address] WBC (Bld) [#/Vol] 7.9 10*3/uL Normal 3.8-11.6 [facility] Comment on above: Performed By: #### C UU, ADDONUAPLUS #### [facility] [address] [place] [address] Serum or plasma albumin/glob ulin mass ratioOrdered By: Damaso Charlton on 08-20-2024 Albumin/Globulin [Mass ratio] Serum or plasma albumin/globulin mass ratio [facility] Serum or plasma anion gap de terminationOrdered By: Damaso Charlton on 08-20-2024 Anion gap [Moles/Vol] Serum or plasma an ion gap determination 6.0-15.0 [facility] Sodium [Moles/volume] in Ser um or PlasmaOrdered By: Damaso Charlton on 08-20-2024 Sodium [Moles/Vol] Sodium [Moles/volume ] in Serum or Plasma Low 136-145 [facility] Specific gravity Test strip (U) [Rel density]Ordered By: Damaso Charlton on 08-20-2024 Specific gravity (U) [Rel density] Specific gravity of Urine by Test strip 1.001-1.030 [facility] Urea nitrogen [Mass/volume] in Serum or PlasmaOrdered By: Damaso Charlton on 08-20-2024 Urea nitrogen [Mass/Vol] Urea nitrogen [Mass/volume] in Serum or Plasma High 7-25 [facility] Urine Cultureon 08-20-2024 Bacteria identified Cx Nom (U) ORGANISM: Pseudomonas aeruginosa (O:PSEAER) [place] Count 50,000 Aerobic ROSALIND Charge (NMIC56) SUSCEPTIBILITY ORGANISM: O:PSEAER ANTIBIOTIC INTERPRETATION ROSALIND Amikacin S <16 Aztreonam IB <4 Cefepime S <2 Ceftazidime IB <1 Ceftazidime/Avibactam S <4 Ceftolozane/Tazobactam S <2 Ciprofloxacin S 0.5 Gentamicin S <2 Levofloxacin I 2 Meropenem S <1 Piperacillin/Tazobactam IB <8 Tobramycin S <2 S = SUSCEPTIBLE I = INTERMEDIATE R = RESISTANT BLANK = DATA NOT AVAILABLE, OR DRUG NOT ADVISABLE OR TESTED R* = RESISTANCE DUE TO EXTENDED SPECTRUM BETA-LACTAMASES ESBL = EXTENDED SPECTRUM BETA-LACTAMASE TFG = THYMIDINE-DEPENDENT STRAIN SVEN = BETA-LACTAMASE POSITIVE IB = INDUCIBLE BETA-LACTAMASE. APPEARS IN PLACE OF 'S' WITH SPECIES KNOWN TO POSSESS INDUCIBLE BETA-LACTAMASES. POTENTIALLY THEY MAY BECOME RESISTANT TO ALL B-LACTAM DRUGS. PERFORMED BY: [place] [address] PATHOLOGIST [employer] ANNE OLGUIN M.D. Normal [facility] Comment on above: Performed By: #### C UU, ADDONUAPLUS #### [address] Urine cultureOrdered By: Bushra Charlton on 08-20-2024 Bacteria identified Cx Nom (U) Abnormal [facility] Urobilinogen Test strip (U) [Mass/Vol]Ordered By: Damaso Charlton on 08-20-2024 Urobilinogen (U) [Mass/Vol] Urobilinogen [Mass/volume] in Urine by Test strip Normal [facility] WBC Auto (Bld) [#/Vol]Ordere d By: Damaso Charlton on 08-20-2024 WBC (Bld) [#/Vol] Leukocytes [#/volume ] in Blood by Automated count 3.8-11.6 [facility] X-ray reportOrdered By: Jared Henson on 08-20-2024 Study report [facility] Main [address] [address] XRay Report Signed Patient: Judith Land MR#: [id number] : 1945 Acct:[id number] Age/Sex: 79 / F ADM Date: 5 Loc: ER Room: Type: [facility] ER Attending Dr: Copies to: Damaso Charlton DO~ Ordering Provider: Damaso Charlton DO Date of Service: 08/20/24 XR/XR chest 2V*: Urogenital Plain film chest 2 view HISTORY: Increased confusion COMPARISON: None FINDINGS: SUPPORT DEVICES: None POSTSURGICAL CHANGES: None HEART: Within normal limits PULMONARY FAIZA: Within normal limits MEDIASTINUM: Atherosclerosis of thoracic aorta LUNGS AND PLEURA: No acute lung process, pleural effusion or pneumothorax identified. Minor interstitial changes with hyperinflation BONY STRUCTURES: Intact ADDITIONAL FINDINGS None XR/XR chest 2V* IMPRESSION: No acute process. Impression dictated by: Andrew Henson M.D.08/20/2024 9:48 PM Dictation Location: [place] [address] Transcribed By: [facility] 08/20/242147 Dictated By: Andrew Henson DO 08/20/242147 Signed By: 08/20/242147 [facility] XR chest 2V*on 08-20-2024 XR chest 2V* [facility] Main [address] [address] XRay Report Signed Patient: Judith Land MR#: [id number] : 1945 Acct:[id number] Age/Sex: 79 / F ADM Date: 08/20/24 Loc: ER Room: Type: [facility] ER Attending Dr: Copies to: Damaso Charlton DO Ordering Provider: Damaso Charlton DO Date of Service: 08/20/24 XR/XR chest 2V*: Urogenital Plain film chest 2 view HISTORY: Increased confusion COMPARISON: None FINDINGS: SUPPORT DEVICES: None POSTSURGICAL CHANGES: None HEART: Within normal limits PULMONARY FAIZA: Within normal limits MEDIASTINUM: Atherosclerosis of thoracic aorta LUNGS AND PLEURA: No acute lung process, pleural effusion or pneumothorax identified. Minor interstitial changes with hyperinflation BONY STRUCTURES: Intact ADDITIONAL FINDINGS None XR/XR chest 2V* IMPRESSION: No acute process. Impression dictated by: Andrew Henson M.D.08/20/2024 9:48 PM Dictation Location: [place] [address] Transcribed By: [facility] 08/20/242147 Dictated By: Andrew Henson DO 08/20/242147 Signed By: 08/20/242147 Normal [facility] pH Test strip (U)Ordered By: Damaso Charlton on 08-20-2024 pH (U) pH of Urine by Test strip 5.0-9.0 [facility] Main OR Intraoperative Recor don 08-14-2024 Main OR Intraoperative Record Main OR Intraoperative Record IntraOp Document Type FT Summary Primary Physician: Supa Owen DO Finalized Date/Time: 08/14/24 07:53:51 Pt. Name: JUDITH LAND/Sex: 1945 Female Med Rec #: [id number] Physician: Supa Owen DO Financial #: [id number] Pt. Type: A Room/Bed: [place] [address] Admit/Disch: 08/12/24 07:26:35 - 08/12/24 12:30:00 Institution: Case Times FT Entry 1 Patient Times In Room 08/12/24 08:49:00 Out Room 08/12/24 10:06:00 Procedure Times Start 08/12/24 09:14:00 Stop 08/12/24 10:01:00 Anesthesia Times Start 08/12/24 08:49:00 Stop 08/12/24 10:06:00 Last Modified By: Eli Ho RN 08/12/24 10:40:59 Case Attendance FT Entry 1 Entry 2 Entry 3 Case Attendee Oren Sánchez CRNA, DO, David A Roth CST, Liane E Role Performed ANNETTE Surgeon - Primary Staff - Other Time In 08/12/24 08:48:00 08/12/24 09:07:00 08/12/24 08:48:00 Time Out 08/12/24 10:06:00 08/12/24 10:04:00 08/12/24 09:07:00 Procedure WRIST FRACTURE WRIST FRACTURE WRIST FRACTURE ORIF(Right) ORIF(Right) ORIF(Right) Comments DR. DIETRICH SUPERVISING ROOM ASSIST Last Modified By: Vic SAM, Eli Ho RN, Eli Bryson RN 08/12/24 10:10:00 08/12/24 10:10:00 08/12/24 10:10:00 Entry 4 Entry 5 Case Attendee Eli Ho RN, Sydney A Role Performed Room Service Server - Primary Scrub - Primary Time In 08/12/24 08:48:00 08/12/24 08:48:00 Time Out 08/12/24 10:06:00 08/12/24 10:06:00 Procedure WRIST FRACTURE WRIST FRACTURE ORIF(Right) ORIF(Right) Comments Last Modified By: Eli Ho RN, RN, Leann E 08/12/24 10:10:00 08/12/24 10:10:00 General Comments: JUAN CALVILLO NP SCRUBBED IN FOR THIS CASE. 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 Protocols FT Pre-Care Text: Implements protective measures prior to operative or invasive procedure, confirms identity before the operative or invasive procedure, verifies operative procedure, surgical site, and laterality Entry 1 Procedure(s) WRIST FRACTURE Patient Identity Birthday, ID Band ORIF(Right) Verified (select at Check, Patient least 2): Participation Consents / H and P Anesthesia Consent, Operative Site Present Verified H&P, Surgery/Procedure Marking Verified Consent Surgical Site Yes Laterality Verified Yes Verified Procedure Verified Yes Correct Patient Yes Position Verified Availability Equipment, Implant, Prep Dry Yes Verified (If Medication, X-ray Applicable) PreOp Antibiotic Yes Time Out Oren Sánchez CRNA Given Participants Pocos DO, Vic Stoner RN, Junior Wayne Sydney A Time Out Complete 08/12/24 09:08:00 Outcomes Met? Yes Last Modified By: Eli Ho RN 08/12/24 09:26:40 Post-Care Text: The patient is free from signs and symptoms of injury caused by extraneous objects Allergy Information FT Pre-Care Text: Verifies allergies Entry 1 Allergies Reviewed? Yes Allergies Reviewed Self/Patient With Outcomes Met? Yes Last Modified By: Eli Ho RN 08/12/24 09:26:49 Post-Care Text: The patient received appropriate medication(s) safely administered during the perioperative period Surgical Procedures FT Entry 1 Procedure Description Procedure WRIST FRACTURE ORIF Modifiers Right Surgeon Description RIGHT WRIST ORIF Primary Procedure Yes Primary Surgeon Supa Owen DO Start 08/12/24 09:14:00 Stop 08/12/24 10:01:00 Anesthesia Type General Surgical Service Orthopedics Wound Class 1 - Clean Last Modified By: Eli Ho RN 08/12/24 10:09:52 General Case Data FT Pre-Care Text: Classifies surgical wound, implements aseptic technique, initiates traffic control Entry 1 Case Information OR OR 7 FT Case Level Level 4 Wound Class 1 - Clean Specialty Orthopedics ASA Class 3 Preop Diagnosis RIGHT WRIST FRACTURE Postop Same As Preop Yes Postop Diagnosis RIGHT WRIST FRACTURE Outcomes Met? Yes Last Modified By: Eli Ho RN 08/12/24 09:30:25 Post-Care Text: The patient is free from signs and symptoms of infection Skin Assessment (Pre Procedure) FT Pre-Care Text: Implements protective measures to prevent skin/ tissue injury due to thermal or mechanical sources Evaluates for signs and symptoms of physical injury to skin and tissue Entry 1 Skin Integrity Bruised, Other/See Skin Abnormality Yes Comments Abnormality Location RIGHT WRIST AND RIGHT Abnormality Type WRIST: BRUISING, HIP SWELLING. HIP: BRUISING Outcomes Met? Yes Last Modified By: Eli Ho RN 08/12/24 09:31:00 Post-Care Text: The patient is free from signs and symptoms of injury caused by extraneous objects Patient Positioning FT Pre-Care Text: Identifies physical alterations that require additional precautions for procedure-specific positioning, verifies presence of prosthetics or corrective devices, positions the patient, evaluates the patient for signs and symptoms of injury as a result of positioning Entry 1 Procedure WRIST FRACTURE Body Positi (more content not included)... Normal [facility] 37on 08-13-2024 37 *we will discontinue amlodipine to see if this will help with your leg swelling. *We are splitting lisinopril and hydrochlorothiazide. *We increased lisinopril to 40mg daily. Continue hydrochlorothiazide 25mg daily. *Have lab work done in 2 weeks. *Write down blood pressure readings 2 hours after BP medications. Normal [facility] Office Visiton 08-13-2024 Follow-up visit [id number] Donato Land 1945 F Date Provider Department Center 08/13/2024 [facility] Family History Problem Relation Age of Onset Stroke Mother Stroke Brother Other Mother's Sister Coronary artery disease Mother's Sister Stroke Maternal Grandmother Family Status - Relation Status Age at Mother Brother Mother's Sister Maternal Grandmother Level of Service:[address] [place] OFFICE/OUTPATIENT ESTABLISHED MOD MDM 30 MIN Reason for Visit and Comments: Cardiac Stress Test [489] Hyperlipidemia [182] Hypertension [373916] Edema [[id number]] Normal [facility] Operative Reporton Operative Report Operative Report SURGERY DATE: 08/12/2024 CANAL SUPERINTENDENT: Juan Calvillo APRN, LINING [employer]-C PREOPERATIVE DIAGNOSIS: Right distal radius and ulna fracture POSTOPERATIVE DIAGNOSIS: Right distal radius and ulna fracture OPERATION: Right wrist open reduction and internal fixation of the distal radius ANESTHESIA: General ANESTHESIOLOGIST: Sylvie Cline.NGiana ESTIMATED BLOOD LOSS: None SPECIMEN: None COMPLICATIONS: None IMPLANTS: The [employer] volar wrist plating system. Please see the operative record for plate size and screw size and number. HISTORY/OPERATIVE INDICATIONS: Judith is a 79-year-old white female status post fall who presents with a displaced angulated distal radius and associated ulnar styloid fracture. We did discuss the above procedure as being the most predictable. She does opt for the same. Procedure is undertaken this day. INTRAOPERATIVE PATHOLOGY: Upon closed reduction of the wrist, adequate reduction is achieved with the wrist open. Volar plating system is utilized by [employer]. The screws are placed by drilling, measuring for depth, and placement individually. Adequate stabilization throughout the general arc of motion is performed. The patient did tolerate the procedure well under general anesthetic here today. PROCEDURE: After informed consent is obtained, the risks, complications, reasonable expectations of the above procedure are discussed at length. The patient is taken to the Operative Suite and placed on the operating room table in the supine position. At this point she is given a general anesthetic. A well-padded tourniquet is applied to the right arm. The hand, wrist, forearm sterilely prepped and draped in the usual surgical fashion at which time site verification process is undertaken with a time-out procedure. Mini C-arm intensification is utilized to verify fracture position. A longitudinal incision is made overlying the volar distal radius area. Dissection is carried sharply through skin with careful attention to all bleeding vessels, which are electrocauterized. Dissection is carried bluntly down to the level of the distal radius. Elevation of the muscular tissue and periosteum at the fracture site is realized. The fracture is reduced and visualized with the C-arm intensifier. The patient is then fashioned to the volar radius. The slotted hole is placed first for adjustment. This is adjusted accordingly and further secured. Next, the distalmost row is placed by drilling, measuring for depth, and placement individually. This is visualized in two planes with the C-arm intensifier. After all screws are placed in the plates for stabilization, the procedure is deemed adequate and complete. Final C-arm intensification films are taken. The area is thoroughly irrigated. Subcutaneous tissue is closed with 3-0 Vicryl. Skin is closed with 4-0 nylon. Wound is injected with several cc of 0.25% Marcaine plain, dressed with bacitracin, Adaptic, sterile 4x4, sterile web roll, and a well-padded, well-molded volar Ortho-Glass splint is applied, further dressed with web roll and an Mitchel wrap. The patient is subsequently extubated, transferred to [facility], and taken to Postanesthesia Care Unit in stable condition. She will be discharged this day. Niya Torres Dictated: 08/12/2024 [id number] Transcribed: 08/12/2024 [facility] Comment on above: Result Comment: Elec tronically Signed By: Supa Owen DO\\.br\\Date and Time Signed: 08/13/24 07:21 EST Urine Cultureon 08-13-2024 Bacteria identified Cx Nom (U) ORGANISM: Pseudomonas aeruginosa (O:PSEAER) [place] Count <10,000 Aerobic ROSALIND Charge (NMIC56) SUSCEPTIBILITY ORGANISM: O:PSEAER ANTIBIOTIC INTERPRETATION ROSALIND Amikacin S <16 Aztreonam IB <4 Cefepime S <2 Ceftazidime IB <1 Ceftazidime/Avibactam S <4 Ceftolozane/Tazobactam S <2 Ciprofloxacin S 0.5 Gentamicin S <2 Levofloxacin S 1 Meropenem S <1 Piperacillin/Tazobactam IB <8 Tobramycin S <2 S = SUSCEPTIBLE I = INTERMEDIATE R = RESISTANT BLANK = DATA NOT AVAILABLE, OR DRUG NOT ADVISABLE OR TESTED R* = RESISTANCE DUE TO EXTENDED SPECTRUM BETA-LACTAMASES ESBL = EXTENDED SPECTRUM BETA-LACTAMASE TFG = THYMIDINE-DEPENDENT STRAIN SVEN = BETA-LACTAMASE POSITIVE IB = INDUCIBLE BETA-LACTAMASE. APPEARS IN PLACE OF 'S' WITH SPECIES KNOWN TO POSSESS INDUCIBLE BETA-LACTAMASES. POTENTIALLY THEY MAY BECOME RESISTANT TO ALL B-LACTAM DRUGS. PERFORMED BY: [place] [address] PATHOLOGIST [employer]MENT[employer] REGISTRAR ANNE OLGUIN M.D. Normal [facility] Comment on above: Performed By: #### C DES STREETERPLUS #### [address] Urine cultureOrdered By: Cristian Sams on 08-13-2024 Bacteria identified Cx Nom (U) Abnormal [facility] Discharge Instructionson Discharge Instructions Discharge Instruc tions JUDITH LAND :1945 Visit Date:08/12/2024 Inpatient Discharge Instructions Your Care Team Admitting Physician - Supa Owen DO Referring Physician - Supa Owen DO Reason for Your Visit RIGHT WRIST FRACTURE Tests Performed XR Wrist 2 Views Right -- Results Pending -- Please visit your patient portal for your results or contact your primary care physician. This Is Your Medications List acetaminophen-hydrocodone ([place] 325 mg-5 mg oral tablet) alprazolam (alprazolam 1 mg Tab) amantadine (amantadine 100 mg Tab) amlodipine (amLODIPine 5 mg Tab) aspirin (aspirin 81 mg oral tablet) carbidopa-levodopa (carbidopa-levodopa 25 mg-100 mg ER Tab) ergocalciferol (Vitamin D) gabapentin (gabapentin 300 mg Cap) hydrochlorothiazide-lisino pril (hydrochlorothiazide-lisin opril 25 mg-20 mg Tab) pantoprazole (Pantoprazole [address] Tab) potassium chloride (potassium chloride 20 mEq ER Tab) pravastatin (Pravachol 20 mg Tab) rasagiline (rasagiline 1 mg oral tablet) ropinirole (ropinirole 0.25 mg Tab) sucralfate (sucralfate 1 g Tab) Procedure History Removal of stent (03/04/2020), Appendectomy, Cataract, History of inguinal hernia surgery, Hysterectomy, Splenectomy. What to do next New Follow Up Appointments after Discharge Follow Up with Supa Owen DO, ORT When: 08/25/2024 01:15 PM EDT Where: [address] [place] [address] Medications What How Much When Instructions Next Dose Unchanged acetaminophen-hydrocodone ([place] 325 mg-5 mg oral tablet) See instructions 1 - 2 po q4-6h prn pain Dx: S52.501D Duration: 7 days Pickup at [facility]/pharmacy #[id number] Unchanged alprazolam (alprazolam 1 mg Tab) 1 Tablets By Mouth As needed for for anxiety Unchanged amantadine (amantadine 100 mg Tab) 1 Tablets By Mouth 3 times a day Unchanged amlodipine (amLODIPine 5 mg Tab) 1 Tablets By Mouth Every day Unchanged aspirin (aspirin 81 mg oral tablet) 1 Tablets By Mouth Every day Unchanged carbidopa-levodopa (carbidopa-levodopa 25 mg-100 mg ER Tab) 1 Tablets By Mouth 3 times a day Unchanged ergocalciferol (Vitamin D) Unchanged gabapentin (gabapentin 300 mg Cap) 1 Capsules By Mouth Once a day (in the evening) Unchanged hydrochlorothiazide-lisino pril (hydrochlorothiazide-lisin opril 25 mg-20 mg Tab) 1 Tablets By Mouth Every day Unchanged pantoprazole (Pantoprazole [address] Tab) 1 Tablets By Mouth 2 times a day Unchanged potassium chloride (potassium chloride 20 mEq ER Tab) 1 Tablets By Mouth 2 times a day Unchanged pravastatin (Pravachol 20 mg Tab) 1 Tablets By Mouth Every day Unchanged rasagiline (rasagiline 1 mg oral tablet) 1 Tablets By Mouth Every day Unchanged ropinirole (ropinirole 0.25 mg Tab) 1 Tablets By Mouth At bedtime Unchanged sucralfate (sucralfate 1 g Tab) 1 Tablets By Mouth Every day Pharmacy Information [facility]/pharmacy #[id number]: [address], [place] [id number] [phone] Allergies sulfa drugs (Unknown) Education Materials [place], [place] [facility] OUTPATIENT SURGERY Home Care [...] be given a card with your post-operative (more content not included)... Normal [facility] Comment on above: Result Comment: Elec tronically Signed By: Marjan SAM, Sofia Blair.andreia\\Date and Time Signed: 08/12/24 10:27 EST Main OR PACU I Recordon 03-0 Main OR PACU I Record Main OR PACU I Rec ord PACU Phase I Document Type FT Summary Primary Physician: Supa Owen DO Finalized Date/Time: 08/12/24 11:56:10 Pt. Name: EMERYJUDITH/Sex: 1945 Female Med Rec #: [id number] Physician: Supa Owen DO Financial #: [id number] Pt. Type: A Room/Bed: [place] [address] Admit/Disch: 08/12/24 07:26:35 - Institution: Case Times PACU I FT Pre-Care Text: Identifies barriers to communication and implements measures to provide psychological support Develops individualized plan of care, and ensures continuity of care Maintains patient's dignity and privacy, and maintains patient confidentiality Identifies and reports philosophical, cultural, and spiritual beliefs and values Identifies individual values and wishes concerning care Implements aseptic technique, and administers prescribed antibiotic therapy and immunizing agents as ordered Evaluates postoperative tissue perfusion Implements thermoregulation measures, and monitors body temperature Evaluates postoperative respiratory status Evaluates postoperative cardiac status Evaluates postoperative neurological status Assesses pain control, collaborated in initiating patient-controlled analgesia and implements alternative methods of pain control Verifies allergies, administers prescribed medications and solutions, evaluates response to medications Entry 1 In PACU I 08/12/24 10:08:00 Discharge from PACU 08/12/24 10:40:00 I Outcomes Met? Yes Last Modified By: Genesis Roberts RN 08/12/24 10:52:20 Post-Care Text: The patient demonstrates knowledge of the expected response to the operative or invasive procedure The patient's care is consistent with the individualized perioperative plan of care The patient's right to privacy is maintained The patient's value system, lifestyle, ethnicity, and culture are considered, respected, and incorporated into the perioperative plan of care The patient participates in decisions affecting his or her perioperative plan of care The patient is free from signs and symptoms of infection The patient has wound/tissue perfusion consistent with or improved from baseline levels established preoperatively The patient is at or returning to normothermia at the conclusion of the immediate postoperative period The patient's respiratory function is consistent with or improved from baseline levels established preoperatively The patient's cardiovascular status is consistent with or improved from baseline levels established preoperatively The patient's cardiovascular status is consistent with or improved from baseline levels established preoperatively The patient demonstrates and/or reports adequate pain control throughout the perioperative period The patient received appropriate medication(s), safely administered during the perioperative period Acuity Level PACU I FT Entry 1 Start Time 08/12/24 10:08:00 Stop Time 08/12/24 10:40:00 Acuity Level Acuity Level I Last Modified By: Genesis Roberts RN 08/12/24 10:52:33 Finalized By: Genesis Roberts RN Document Signatures Signed By: Genesis Roberts RN 08/12/24 10:52 Genesis Roberts RN 08/12/24 10:52 Genesis Roberts RN 08/12/24 11:56 Normal [facility] Main OR PACU II Recordon Main OR PACU II Record Main OR PACU II R ecord PACU Phase II Document Type FT Summary Primary Physician: Supa Owen DO Finalized Date/Time: 08/12/24 12:35:27 Pt. Name: RAULHarshilJUDITH/Sex: 1945 Female Med Rec #: [id number] Physician: Supa Owen DO Financial #: [id number] Pt. Type: A Room/Bed: [place] [address] Admit/Disch: 08/12/24 07:26:35 - Institution: Case Times PACU II FT Pre-Care Text: Identifies barriers to communication and implements measures to provide psychological support and determines knowledge level Develops individualized plan of care, and ensures continuity of care Maintains patient's dignity and privacy, and maintains patient confidentiality Identifies and reports philosophical, cultural, and spiritual beliefs and values Identifies individual values and wishes concerning care administers prescribed antibiotic therapy and immunizing agents as ordered, Evaluates postoperative tissue perfusion Implements thermoregulation measures, and monitors body temperature Evaluates postoperative respiratory status Evaluates postoperative cardiac status Evaluates postoperative neurological status Assesses pain control, collaborated in initiating patient-controlled analgesia and implements alternative methods of pain control Verifies allergies, administers prescribed medications and solutions, evaluates response to medications Entry 1 In PACU II 08/12/24 10:45:00 Discharge from PACU 08/12/24 12:30:00 II Outcomes Met? Yes Last Modified By: Sofia Phillip RN 08/12/24 12:35:26 Post-Care Text: The patient demonstrates knowledge of the expected response to the operative or invasive procedure The patient's care is consistent with the individualized perioperative plan of care The patient's right to privacy is maintained The patient's value system, lifestyle, ethnicity, and culture are considered, respected, and incorporated into the perioperative plan of care The patient participates in decisions affecting his or her perioperative plan of care. The patient is free from signs and symptoms of infection The patient has wound/tissue perfusion consistent with or improved from baseline levels established preoperatively The patient is at or returning to normothermia at the conclusion of the immediate postoperative period The patient's respiratory function is consistent with or improved from baseline levels established preoperatively The patient's cardiovascular status is consistent with or improved from baseline levels established preoperatively The patient's neurological status is consistent with or improved from baseline levels established preoperatively The patient demonstrates and/or reports adequate pain control throughout the perioperative period The patient received appropriate medication(s), safely administered during the perioperative period Finalized By: Sofia Phillip RN Document Signatures Signed By: Sofia Phillip RN 08/12/24 12:35 [facility] Main OR Preoperative Recordo n 08-12-2024 Main OR Preoperative Record Main OR Preoperative Record PreOp Document Type FT Summary Primary Physician: Supa Owen DO Finalized Date/Time: 08/12/24 09:25:02 Pt. Name: JUDITH LAND/Sex: 1945 Female Med Rec #: [id number] Physician: Supa Owen DO Financial #: [id number] Pt. Type: A Room/Bed: 01/09 Admit/Disch: 08/12/24 07:26:35 - Institution: Case Times PreOp FT Pre-Care Text: Verifies consent for planned procedure, identifies individual values and wishes concerning care, includes family members in perioperative teaching Entry 1 Patient Times. In Pre Surgery 08/12/24 07:30:00 Out Pre Surgery 08/12/24 08:46:00 Outcomes Met? Yes Last Modified By: Eli Ho RN 08/12/24 09:25:00 Post-Care Text: The patient participates in decisions affecting his or her perioperative plan of care Finalized By: Eli Ho RN Document Signatures Signed By: Eli Ho RN 08/12/24 09:25 Normal [facility] Urine Cultureon 08-06-2024 Bacteria identified Cx Nom (U) Results may be affected due to sample being received beyond acceptable limits. 15,000 colonies/ml mixed bacterial skin contaminants 2 Days PERFORMED BY: [address] [address] PATHOLOGIST [employer] REGIST[employer] ANNE OLGUIN M.D. Normal [facility] Comment on above: Performed By: #### C UU #### [address] [address] [facility] Urine cultureOrdered By: Alexis Ramachandran on 08-06-2024 Bacteria identified Cx Nom (U) Urine culture [facility] C Urineon 08-05-2024 Bacteria identified Cx Nom [...] Locations R1: This test was performed at: [facility], [address] [place] [address], [address] , [place], Normal [facility] Comment on above: Performed By: #### 2 [id number] ####[facility] [address] [place] [address] Head or Brain w/o Contras ton [...] MD Transcribed by: OTONIEL Technologist: LEONARDA Ojeda [facility] BMPon 08-03-2024 Anion gap [Moles/Vol] 10 mmol/L Normal 6-16 [facility] Comment on above: Performed By: #### 2 [id number] #### [facility] [address] [place] [address] Calcium [Mass/Vol] 10.9 mg/dL Normal 8.9-11.1 [facility] Comment on above: Performed By: #### 2 [id number] #### [facility] [address] [place] [address] Chloride [Moles/Vol] 105 mmol/L Normal 101-111 [facility] Comment on above: Performed By: #### 2 [id number] #### [facility] [address] [place] [address] CO2 [Moles/Vol] 28 mmol/L Normal 21-31 [facility] Comment on above: Performed By: #### 2 [id number] #### [facility] [address] [place] [address] Creatinine [Mass/Vol] 1.3 mg/dL Normal 0.5-1.3 [facility] Comment on above: Performed By: #### 2 [id number] #### [facility] [address] [place] [address] Glucose [Mass/Vol] 123 mg/dL Normal 55-199 [facility] Comment on above: Performed By: #### 2 [id number] #### [facility] [address] [place] [address] Potassium [Moles/Vol] 3.9 mmol/L Normal 3.5-5.3 [facility] Comment on above: Performed By: #### 2 660109 #### [facility] [address] [place] [address] Sodium [Moles/Vol] 139 mmol/L Normal 135-145 [facility] Comment on above: Performed By: #### 2 [id number] #### [facility] [address] [place] [address] Urea nitrogen [Mass/Vol] 30 mg/dL High 5-21 [facility] Comment on above: Performed By: #### 2 [id number] #### [facility] [address] [place] [address] Urea nitrogen/Creatinine [Mass ratio] 23 No Units High 10-20 [facility] Comment on above: Performed By: #### 2 [id number] #### [facility] [address] [place] [address] CBC w/ Auto Diffon 5 Basophils/100 WBC (Bld) 1.0 % Normal 0.0-2.0 [facility] Comment on above: Performed By: #### 2 [id number] #### [facility] [address] [place] [address] Basophils/Leukocytes Auto (Bld) [Pure # fraction] 0.1 E9/L Normal 0.0-0.2 [facility] Comment on above: Performed By: #### 2 604751 #### [facility] [address] [place] [address] Eosinophils (Bld) [#/Vol] 0.5 E9/L Normal 0.0-0.5 [facility] Comment on above: Performed By: #### 2 [id number] #### [facility] [address] [place] [address] Eosinophils/100 WBC (Bld) 6.1 % Normal 0.0-8.0 [facility] Comment on above: Performed By: #### 2 [id number] #### [facility] [address] [place] [address] Erythrocyte distribution width (RBC) [Ratio] 14.9 % High 10.9-14.2 [facility] Comment on above: Performed By: #### 2 [id number] #### [facility] [address] [place] [address] Hematocrit (Bld) [Volume fraction] 40.4 % Normal 34.0-46.0 [facility] Comment on above: Performed By: #### 2 [id number] #### [facility] [address] [place] [address] Hemoglobin (Bld) [Mass/Vol] 13.8 g/dL Normal 12.0-16.0 [facility] Comment on above: Performed By: #### 2 795723 #### [facility] [address] [place] [address] Lymphocytes (Bld) [#/Vol] 2.2 E9/L Normal 1.0-4.0 [facility] Comment on above: Performed By: #### 2 157323 #### [facility] [address] [place] [address] Lymphocytes/100 WBC (Bld) 26.2 % Normal 14.0-50.0 [facility] Comment on above: Performed By: #### 2 180291 #### [facility] [address] [place] [address] MCH (RBC) [Entitic mass] 31.8 pg Normal 27.0-34.0 [facility] Comment on above: Performed By: #### 2 [id number] #### [facility] [address] [place] [address] MCHC (RBC) [Mass/Vol] 34.1 g/dL Normal 31.4-36.0 [facility] Comment on above: Performed By: #### 2 [id number] #### [facility] [address] [place] [address] MCV (RBC) [Entitic vol] 93.4 fL Normal 80.0-100.0 [facility] Comment on above: Performed By: #### 2 [id number] #### [facility] [address] [place] [address] Monocytes (Bld) [#/Vol] 0.9 E9/L Normal 0.2-1.0 [facility] Comment on above: Performed By: #### 2 292115 #### [facility] [address] [place] [address] Neutrophils (Bld) [#/Vol] 4.6 E9/L Normal 2.0-7.5 [facility] Comment on above: Performed By: #### 2 578901 #### [facility] [address] [place] [address] Neutrophils/100 WBC (Bld) 55.5 % Normal 36.0-75.0 [facility] Comment on above: Performed By: #### 2 [id number] #### [facility] [address] [place] [address] Platelet 357.0 E9/L Normal 150.0-500.0 [facility] Comment on above: Performed By: #### 2 497275 #### [facility] [address] [place] [address] Platelet mean volume (Bld) [Entitic vol] 9.0 fL Normal 6.4-10.8 [facility] Comment on above: Performed By: #### 2 [id number] #### [facility] [address] [place] [address] RBC (Bld) [#/Vol] 4.3 E12/L Normal 4.3-5.9 [facility] Comment on above: Performed By: #### 2 [id number] #### [facility] [address] [place] [address] WBC corrected for nucl RBC Auto (Bld) [#/Vol] 8.3 E9/L Normal 4.0-11.0 [facility] Comment on above: Performed By: #### 2 [id number] #### [facility] [address] [place] [address] CHEMISTRYOrdered By: SYSTEM SYSTEM on 08-03-2024 Anion [...] 2024 ED Clinical Summary ED Clinical Summary [address] [address] ED Clinical Summary Person Information Name: JUDITH LAND [place] Age: 79 Years : 1945 Sex: Female Language: [place] Islander PCP: Kavon Sams MD Marital Status: Visit [...] 08/03/2024 21:56:18 08/03/2024 21:56:18 08/03/2024 21:56:18 ADDRESS: [address] [place] [id number] PHYS DOC NOTES: MEDICAL INFORMATION: Prescriptions Given: New Medications [facility]/pharmacy #[id number], [address], [place] [id number], [phone] cephalexin (Keflex 500 mg Cap) 1 Capsules By Mouth every 12 hours for 5 Days. Refills: 0. Medications to Continue with No Changes Other Medications ciprofloxacin (Cipro 500 mg Tab) 1 Tablets By Mouth 2 times a day. Refills: 0. PATIENT EDUCATION INFORMATION: Instructions: Urinary Tract Infection, Adult Follow up: With: Address: When: Kavon Sams [facility], [place] [address] [place] [address] Business (1) In 3 days [...] or worsening symptoms. DIAGNOSIS: Acute UTI Normal [facility] ED Note-Physicianon 08-03-19 ED Note-Physician ED Note-Physician [...] day(s), # 10 cap(s), Refills(s) 0, Pharmacy: [facility]/pharmacy #[id number], 167, cm, 08/03/24 19:04:00 EST, Height/Length [...] Oral, q12hr Follow-up With When Contact Information Kavon Flaquita In 3 days 08/06/[address] Business (1) Additional Instructions: Call the office [...] PRN amLODIPine (more content not included)... Normal [facility] Comment on above: Result Comment: Elec tronically Signed By: Demarco Beaver DO\\.br\\Date and Time Signed: 08/03/24 22:07 EST ED Patient Summaryon 025 ED Patient Summary ED Patient Summary [place] [id number] Patient Discharge Instructions Person Information Name: JUDITH LAND Age: 79 Years Arrival Date: 08/03/2024 18:49:35 Discharge Diagnosis: Acute UTI Primary Care Physician: Kavon Sams MD Provider Information Primary Provider: Demarco Beaver DO Advanced Director Video:None The exam and treatment you received in the Emergency Department were for an urgent problem and are not intended as complete care. It is important that you follow up with a doctor, nurse practitioner, or physician???s assistant basketball coach for ongoing care. If your symptoms become worse or you do not improve as expected and you are unable to reach your usual health care provider, you should return to the Emergency Department. We are available 24 hours a day. JUDITH LAND has been given the following list of patient education materials, prescriptions and follow-up instructions: Follow-up Instructions: With: Address: When: Kavon Sams [facility] [address] [place] [id number] Business (1) In 3 days 08/06/2024 Comments: [...] opioids can be used to help relieve qpmwasnb-pj-twxvkc pain and are often prescribed following a [...] prescription op (more content not included)... Normal [facility] Extra Blueon 08-03-2024 Tube Collected Plasma Yes Invalid Interpretation Code [facility] Comment on above: Performed By: #### 1 [id number] #### [facility] [address] [place] [address] HEMATOLOGYOrdered By: SYSTEM SYSTEM on 08-03-2024 Basophils/100 [...] 25 Bilirubin Ql (U) Negative Normal Negative [facility] Comment on above: Performed By: #### 4 [id number] #### [facility] [address] [place] [address] Clarity (U) Clear Normal Clear [facility] Comment on above: Performed By: #### 4 [id number] #### [facility] [address] [place] [address] Color (U) Light-Yellow Normal Yellow [facility] Comment on above: Result Comment: Micr oscopic readings are only performed on those samples that meet specific criteria set forth by [facility]. Performed By: #### 4 [id number] #### [facility] [address] [place] [address] Epithelial cells.squamous Auto (Urine sed) [#/Area] 0-2 Invalid Interpretation Code [facility] Comment on above: Performed By: #### 4 [id number] #### [facility] [address] [place] [address] Glucose Ql (U) Negative Normal Negative [facility] Comment on above: Performed By: #### 4 [id number] #### [facility] [address] [place] [address] Hemoglobin Auto test strip (U) [Mass/Vol] 2+ mg/dL Abnormal Negative [facility] Comment on above: Performed By: #### 4 [id number] #### [facility] [address] [place] [address] Ketones Auto test strip Ql (U) Negative Normal Negative [facility] Comment on above: Performed By: #### 4 [id number] #### [facility] [address] [place] [address] Leukocyte esterase Auto test strip Ql (U) 75 Veronique/uL Abnormal Negative [facility] Comment on above: Performed By: #### 4 [id number] #### [facility] [address] [place] [address] Mucus Auto Ql (U) Negative Normal Negative [facility] Comment on above: Performed By: #### 4 [id number] #### [facility] [address] [place] [address] Nitrite Auto test strip Ql (U) Negative Normal Negative [facility] Comment on above: Performed By: #### 4 [id number] #### [facility] [address] [place] [address] pH (U) 6.0 [pH] Invalid Interpretation Code 5.0-9.0 [facility] Comment on above: Performed By: #### 4 [id number] #### [facility] [address] [place] [address] Protein Ql (U) Negative Normal Negative [facility] Comment on above: Performed By: #### 4 [id number] #### [facility] [address] [place] [address] RBC Ql (U) 31-75 Abnormal 0-3 [facility] Comment on above: Performed By: #### 4 [id number] #### [facility] [address] [place] [address] Specific gravity (U) [Rel density] 1.013 Invalid Interpretation Code 1.005-1.030 [facility] Comment on above: Performed By: #### 4 [id number] #### [facility] [address] [place] [address] Urobilinogen (U) [Mass/Vol] Negative Normal Negative [facility] Comment on above: Performed By: #### 4 [id number] #### [facility] [address] [place] [address] WBC Auto (Urine sed) [#/Area] 6-15 Abnormal 0-5 [facility] Comment on above: Performed By: #### 4 [id number] #### [facility] [address] [place] [address] Type of Urine collection method Clean Catch Normal [facility] Comment on above: Performed By: #### 4 [id number] #### [facility] [address] [place] [address] URINALYSISOrdered By: SYSTEM SYSTEM on 08-03-2024 Bilirubin Ql (U) Negative Normal Negativemg/ dL [facility] UA Auto SS Clarity (U) Clear (08/03/24 7:52 PM) Normal Clear [facility] UA Auto SS Color (U) Light-Yellow 1 (08/03/24 7:52 PM) Normal Yellow [facility] UA Auto SS Comment on above: Interpretive Data: M icroscopic readings are only performed on those samples that meet specific criteria set forth by [facility]. Epithelial cells.squamous Auto (Urine sed) [#/Area] [...] Desc Clean Catch (08/03/24 7:52 PM) Normal [facility] UA Auto SS eGFRon 08-03-2024 eGFR 42 mL/min/1.73 m2 Low >=59 [facility] Comment on above: Performed By: #### 1 [id number] #### [facility] [address] [place] [address] Fay 07-30-2024 CNPN Telephone (NREUS2) -- JUDITH LAND ([id number]) 1945 F Date Time Provider Department 07/30/24 CHERIE CEDENO NREUS2 During your visit today, we recorded the following information about you: Gabbi Ennis 07/30/2024 1:[address] Owen office phoned - patient fell an broke her ulna and will need surgery. They would like to discuss with Cherie from PD standpoint if ok for surgery. [phone] She will also fax over a generic form for completion. Can either call or complete form. Gabbi Ennis 07/30/2024 2:03 PM Signed Form received via fax. Not really anything for RN's to complete. Sent via [employer] to Cherie. Gabbi Ennis 08/05/2024 7:46 AM Signed Looks like I had faxed to the incorrect number. Refaxed to [facility]. Allergies As of Date: 07/30/2024 Noted Allergy Reaction ALEVE (NAPROXEN SODIUM) 07/02/2013 16 - Unknown SULFA (SULFONAMIDE ANTIBIOTICS) 07/02/2013 10 - Anaphylaxis Date Reviewed: 07/16/2024 Reviewed by: Ga Bob MA - Fully Assessed Reason for Visit: [...] 20 mg by mouth once daily. - lisinopril-hydrochlorothia zide 20-25 mg per tablet Take 1 tablet [...] changes [R41.3] 09/13/2023 Encounter Status:Closed by GABBI ENNIS on 07/30/24 Normal [facility] Urineon 07-28-2024 Bacteria identified Cx Nom (U) Microbiology PROCEDURE: Urine Culture [R1] SOURCE: U Random BODY SITE: COLLECTED DATE/TIME: 07/26/2024 17:10 EST RECEIVED DATE/TIME: 07/26/2024 18:08 EST START DATE/TIME: 07/26/2024 18:08 EST FREE TEXT SOURCE: Sae Morfin DO, DO, Sae FINAL REPORTS Final Report [] Verified Date/Time: 07/28/2024 10:44 EST 4,000 cfu/ml Mixed skin contaminants Performing Locations R1: This test was performed at: [facility], [address] [place] [address], [facility] , , [facility] Comment on above: Performed By: #### 2 [id number] #### [facility] [address] [place] [address] CT Head or Brain w/o Contras ton [...] as low as reasonably achievable. Ordering Provider: Sae Morfin FINAL REPORT Dictated: 07/27/2024 11:05 am Jori Colon MD Signed (Electronic Signature): 07/27/2024 11:05 am Signed by: Jori Colon MD Transcribed by: OTONIEL Technologist: SAJAN Ojeda [facility] XR Chest Single Viewon 07-27 XR Chest Single View Exam Date/Time: 07/26/2024 16:38 EST Reason for Exam: Shortness of breath (SOB) Report IMPRESSION: NO ACUTE CARDIOPULMONARY DISEASE. CLINICAL HISTORY: Shortness of breath (SOB) COMPARISON: 06/23/2023 FINDINGS: Osseous structures intact. Cardiopericardial silhouette normal. Pulmonary vasculature normal. Lungs clear. Ordering Provider: Sae Morfin FINAL REPORT Dictated: 07/27/2024 11:38 am Jori Colon MD Signed (Electronic Signature): 07/27/2024 11:38 am Signed by: Jori Colon MD Transcribed by: OTONIEL Technologist: PARISH Normal [facility] BMPon 07-26-2024 Anion gap [Moles/Vol] 13 mmol/L Normal 6-16 [facility] Comment on above: Performed By: #### 2 [id number] #### [facility] [address] [place] [address] Calcium [Mass/Vol] 10.8 mg/dL Normal 8.9-11.1 [facility] Comment on above: Performed By: #### 2 [id number] #### [facility] [address] [place] [address] Chloride [Moles/Vol] 103 mmol/L Normal 101-111 [facility] Comment on above: Performed By: #### 2 [id number] #### [facility] [address] [place] [address] CO2 [Moles/Vol] 27 mmol/L Normal 21-31 [facility] Comment on above: Performed By: #### 2 [id number] #### [facility] [address] [place] [address] Creatinine [Mass/Vol] 1.3 mg/dL Normal 0.5-1.3 [facility] Comment on above: Performed By: #### 2 [id number] #### [facility] [address] [place] [address] Glucose [Mass/Vol] 94 mg/dL Normal 55-199 [facility] Comment on above: Performed By: #### 2 [id number] #### [facility] [address] [place] [address] Potassium [Moles/Vol] 4.7 mmol/L Normal 3.5-5.3 [facility] Comment on above: Performed By: #### 2 [id number] #### [facility] [address] [place] [address] Sodium [Moles/Vol] 138 mmol/L Normal 135-145 [facility] Comment on above: Performed By: #### 2 [id number] #### [facility] [address] [place] [address] Urea nitrogen [Mass/Vol] 31 mg/dL High 5-21 [facility] Comment on above: Performed By: #### 2 [id number] #### [facility] [address] [place] [address] Urea nitrogen/Creatinine [Mass ratio] 24 No Units High 10-20 [facility] Comment on above: Performed By: #### 2 [id number] #### [facility] [address] [place] [address] CBC w/ Auto Diffon 5 Basophils/100 WBC (Bld) 1.0 % Normal 0.0-2.0 [facility] Comment on above: Performed By: #### 2 [id number] #### [facility] [address] [place] [address] Basophils/Leukocytes Auto (Bld) [Pure # fraction] 0.1 E9/L Normal 0.0-0.2 [facility] Comment on above: Performed By: #### 2 [id number] #### [facility] [address] [place] [address] Eosinophils (Bld) [#/Vol] 0.7 E9/L High 0.0-0.5 [facility] Comment on above: Performed By: #### 2 [id number] #### [facility] [address] [place] [address] Eosinophils/100 WBC (Bld) 7.4 % Normal 0.0-8.0 [facility] Comment on above: Performed By: #### 2 [id number] #### [facility] [address] [place] [address] Erythrocyte distribution width (RBC) [Ratio] 15.1 % High 10.9-14.2 [facility] Comment on above: Performed By: #### 2 [id number] #### [facility] [address] [place] [address] Hematocrit (Bld) [Volume fraction] 41.5 % Normal 34.0-46.0 [facility] Comment on above: Performed By: #### 2 [id number] #### [facility] [address] [place] [address] Hemoglobin (Bld) [Mass/Vol] 14.0 g/dL Normal 12.0-16.0 [facility] Comment on above: Performed By: #### 2 [id number] #### [facility] [address] [place] [address] Lymphocytes (Bld) [#/Vol] 2.7 E9/L Normal 1.0-4.0 [facility] Comment on above: Performed By: #### 2 [id number] #### [facility] [address] [place] [address] Lymphocytes/100 WBC (Bld) 26.2 % Normal 14.0-50.0 [facility] Comment on above: Performed By: #### 2 [id number] #### [facility] [address] [place] [address] MCH (RBC) [Entitic mass] 31.5 pg Normal 27.0-34.0 [facility] Comment on above: Performed By: #### 2 [id number] #### [facility] [address] [place] [address] MCHC (RBC) [Mass/Vol] 33.7 g/dL Normal 31.4-36.0 [facility] Comment on above: Performed By: #### 2 [id number] #### [facility] [address] [place] [address] MCV (RBC) [Entitic vol] 93.5 fL Normal 80.0-100.0 [facility] Comment on above: Performed By: #### 2 [id number] #### [facility] [address] [place] [address] Monocytes (Bld) [#/Vol] 1.4 E9/L High 0.2-1.0 [facility] Comment on above: Performed By: #### 2 [id number] #### [facility] [address] [place] [address] Neutrophils (Bld) [#/Vol] 5.3 E9/L Normal 2.0-7.5 [facility] Comment on above: Performed By: #### 2 [id number] #### [facility] [address] [place] [address] Neutrophils/100 WBC (Bld) 52.0 % Normal 36.0-75.0 [facility] Comment on above: Performed By: #### 2 [id number] #### [facility] [address] [place] [address] Platelet 300.0 E9/L Normal 150.0-500.0 [facility] Comment on above: Performed By: #### 2 [id number] #### [facility] [address] [place] [address] Platelet mean volume (Bld) [Entitic vol] 9.5 fL Normal 6.4-10.8 [facility] Comment on above: Performed By: #### 2 [id number] #### [facility] [address] [place] [address] RBC (Bld) [#/Vol] 4.4 E12/L Normal 4.3-5.9 [facility] Comment on above: Performed By: #### 2 [id number] #### [facility] [address] [place] [address] WBC corrected for nucl RBC Auto (Bld) [#/Vol] 10.2 E9/L Normal 4.0-11.0 [facility] Comment on above: Result Comment: Evelyne pheral smear review performed. Performed By: #### 2 [id number] #### [facility] [address] [place] [address] CHEMISTRYOrdered By: SYSTEM SYSTEM on 07-26-2024 Troponin [...] Jacques Ceci, January 2018) Anion gap [Moles/Vol] 13 mmol/L [...] Sensitivity Troponin I Instructions For Use, Jacques Vesper, January 2018) Urea nitrogen [Mass/Vol] 31 mg/dL High 5 - 21 mg/dL Remisol Chem Urea nitrogen/Creatinine [Mass ratio] 24 mg/mg High 10 - 20 Remisol Chem ED Clinical Summaryon 2024 ED Clinical Summary ED Clinical Summary [place] [address] ED Clinical Summary Person Information Name: JUDITH LAND [facility] Age: 79 Years : 1945 Sex: Female Language: [place] Islander PCP: Kavon Sams MD Marital Status: Visit [...] 07/26/2024 18:34:16 07/26/2024 18:34:16 07/26/2024 18:34:16 ADDRESS: [address] [place] [id number] PHYS DOC NOTES: MEDICAL INFORMATION: Prescriptions Given: Medications to Continue Taking That Have Changed [id number], [address] [place], [place] [id number], [phone] START: ciprofloxacin (Cipro 500 mg Tab) 1 [...] tablet) 1 Tablets By Mouth every day. hydrochlorothiazide-lisino pril (hydrochlorothiazide-lisin opril 25 mg-20 mg [...] INFORMATION: Instructions: Follow up: With: Address: When: Kavon Sams [address] [facility], [place] [address] Business (1) In 3 days DIAGNOSIS: Altered mental status; Dehydration; UTI (urinary tract infection) Normal [facility] ED Note-Physicianon 07-26-19 ED Note-Physician ED Note-Physician Basic Information Time Seen: Sae Morfin DO 07/26/2024 16:02 Chief Complaint Pt [...] had a urinalysis dropped off at the [facility] on but they do not have the [...] BID, # 14 tab(s), Refills(s) 0, Pharmacy: [id number], 167, cm, 07/26/24 16:07:00 EST, Height/Length [...] Oral, BID Follow-up With When Contact Information Kavon Sams In 3 days [address] [facility] [address] [place] [id number]- Business (1) Additional Instructions: Problem List/Past Medical [...] Tab, 1 (more content not included)... Normal [facility] Comment on above: Result Comment: Elec tronically Signed By: Sae Morfin DO\\.br\\Date and Time Signed: 07/26/24 18:26 EST ED Patient Education Noteon 07-26-2024 ED Patient Education Note ED Patient Education Note Normal [facility] ED Patient Summaryon 025 ED Patient Summary ED Patient Summary [address] [address] Patient Discharge Instructions Person Information Name: JUDITH LAND Age: 79 Years Arrival Date: 07/26/2024 15:51:40 Discharge Diagnosis: Altered mental status; Dehydration; UTI (urinary tract infection) Primary Care Physician: Kavon Sams MD Provider Information Primary Provider: Sae Morfin DO Advanced Director Video:None The exam and treatment you received in the Emergency Department were for an urgent problem and are not intended as complete care. It is important that you follow up with a doctor, nurse practitioner, or physician???s assistant basketball coach for ongoing care. If your symptoms become worse or you do not improve as expected and you are unable to reach your usual health care provider, you should return to the Emergency Department. We are available 24 hours a day. JUDITH LAND has been given the following list of patient education materials, prescriptions and follow-up instructions: Follow-up Instructions: With: Address: When: Kavon Sams [facility], [address] [place] [id number] Business (1) In 3 days In the event that this physician does not participate in your insurance network, please consult with your insurance company to find a nearby participating provider. Patient Education Materials: A MESSAGE TO ALL PATIENTS REGARDING OPIOIDS PRESCRIPTION OPIOIDS: WHAT YOU NEED TO KNOW Prescription opioids can be used to help relieve loebfszz-bj-ywniqp pain and are often prescribed following a [...] the Food and Drug Administration (www.fda.gov/Drugs/Resourc esForYou). ??? Visit www.cdc.gov/drugoverdose to learn about the risks of opioids abuse and overdose. ??? If you believe you may be struggling with addiction, tell your health career advisor and a (more content not included)... Normal [facility] HEMATOLOGYOrdered By: SYSTEM SYSTEM on 07-26-2024 Basophils/100 [...] 07-26-2024 Troponin HS 11.10 pg/mL Normal 10.10-27.10 [facility] Comment on above: Result Comment: The 95% CI (Confidence Interval) PPV (Positive Predictive Value) for myocardial infarction in females is 38 pg/mL, in males 51 pg/mL. The results should be used in conjunction with clinical conditions of myocardial infarction. (Access High Sensitivity Troponin I Instructions For Use, [employer] January 2018) Performed By: #### 1 [id number] #### [facility] [address] [place] [address] Troponin 1 Hr.on 07-26-2024 Troponin HS 10.10 pg/mL Normal 10.10-27.10 [facility] Comment on above: Order Comment: 1709 Result Comment: The 95% CI (Confidence Interval) PPV (Positive Predictive Value) for myocardial infarction in females is 38 pg/mL, in males 51 pg/mL. The results should be used in conjunction with clinical conditions of myocardial infarction. (Access High Sensitivity Troponin I Instructions For Use, [employer] January 2018) Performed By: #### 1 [id number] #### [facility] [address] [place] [address] UA with Cult Rflxon 07-26-19 25 Bilirubin Ql (U) Negative Normal Negative [facility] Comment on above: Performed By: #### 4 [id number] #### [facility] [address] [place] [address] Clarity (U) Clear Normal Clear [facility] Comment on above: Performed By: #### 4 [id number] #### [facility] [address] [place] [address] Color (U) Light-Yellow Normal Yellow [facility] Comment on above: Result Comment: Micr oscopic readings are only performed on those samples that meet specific criteria set forth by [facility]. Performed By: #### 4 [id number] #### [facility] [address] [place] [address] Epithelial cells.squamous Auto (Urine sed) [#/Area] 0-2 Invalid Interpretation Code [facility] Comment on above: Performed By: #### 4 [id number] #### [facility] [address] [place] [address] Glucose Ql (U) Negative Normal Negative [facility] Comment on above: Performed By: #### 4 [id number] #### [facility] [address] [place] [address] Hemoglobin Auto test strip (U) [Mass/Vol] 3+ mg/dL Abnormal Negative [facility] Comment on above: Performed By: #### 4 [id number] #### [facility] [address] [place] [address] Ketones Auto test strip Ql (U) Negative Normal Negative [facility] Comment on above: Performed By: #### 4 [id number] #### [facility] [address] [place] [address] Leukocyte esterase Auto test strip Ql (U) 75 Veronique/uL Abnormal Negative [facility] Comment on above: Performed By: #### 4 [id number] #### [facility] [address] [place] [address] Mucus Auto Ql (U) Negative Normal Negative [facility] Comment on above: Performed By: #### 4 [id number] #### [facility] [address] [place] [address] Nitrite Auto test strip Ql (U) Negative Normal Negative [facility] Comment on above: Performed By: #### 4 [id number] #### [facility] [address] [place] [address] pH (U) 6.5 [pH] Invalid Interpretation Code 5.0-9.0 [facility] Comment on above: Performed By: #### 4 [id number] #### [facility] [address] [place] [address] Protein Ql (U) Negative Normal Negative [facility] Comment on above: Performed By: #### 4 [id number] #### [facility] [address] [place] [address] RBC Ql (U) 4-20 Abnormal 0-3 [facility] Comment on above: Performed By: #### 4 [id number] #### [facility] [address] [place] [address] Specific gravity (U) [Rel density] 1.010 Invalid Interpretation Code 1.005-1.030 [facility] Comment on above: Performed By: #### 4 [id number] #### [facility] [address] [place] [address] Urobilinogen (U) [Mass/Vol] Negative Normal Negative [facility] Comment on above: Performed By: #### 4 [id number] #### [facility] [address] [place] [address] WBC Auto (Urine sed) [#/Area] 0-5 Normal 0-5 [facility] Comment on above: Performed By: #### 4 [id number] #### [facility] [address] [place] [address] Type of Urine collection method Clean Catch Normal [facility] Comment on above: Performed By: #### 4 [id number] #### [facility] [address] [place] [address] URINALYSISOrdered By: SYSTEM SYSTEM on 07-26-2024 Bilirubin Ql (U) Negative Normal Negativemg/ dL [facility] UA Auto SS Clarity (U) Clear (07/26/24 5:10 PM) Normal Clear [facility] UA Auto SS Color (U) Light-Yellow 1 (07/26/24 5:10 PM) Normal Yellow [facility] UA Auto SS Comment on above: Interpretive Data: M icroscopic readings are only performed on those samples that meet specific criteria set forth by [facility]. Epithelial cells.squamous Auto (Urine sed) [#/Area] 0-2 graded/HPF Invalid Interpretation Code [facility] UA Auto SS Glucose Ql (U) Negative Normal Negativemg/ dL [facility] UA Auto SS Hemoglobin Auto test strip (U) [Mass/Vol] 3+ mg/dL Invalid Interpretation Code Negativemg/ dL [facility] UA Auto SS Ketones Auto test strip Ql (U) Negative Normal Negativemg/ dL [facility] UA Auto SS Leukocyte esterase Auto test strip Ql (U) 75 Veroinque/uL Veronique/uL Invalid Interpretation Code NegativeLeu /uL [facility] UA Auto SS Mucus Auto Ql (U) [...] Urobilinogen (U) [Mass/Vol] Negative Normal Negativemg/ dL [facility] UA Auto SS WBC Auto (Urine sed) [#/Area] 0-5 graded/HPF Normal 0-5graded/H PF [facility] UA Auto SS URINALYSISOrdered By: Sae ballesteros on 07-26-2024 UA Spec Desc Clean Catch (07/26/24 5:10 PM) Normal [facility] UA Auto SS Work Phone: eGFRon 07-26-2024 eGFR 42 mL/min/1.73 m2 Low >=59 [facility] Comment on above: Performed By: #### 1 [id number] #### [facility] [address] [place] [address] CT Head or Brain w/o Contras ton [...] Jori Colon MD Transcribed by: OTONIEL Technologist: [facility] [place] Normal [facility] CT Spine Cervical w/o Contra ston 07-25-2024 [...] Jori Colon MD Transcribed by: OTONIEL Technologist: CML Normal [facility] XR Wrist 2 Views Righton XR Wrist [...] Moya MD Transcribed by: OTONIEL Technologist: SAJAN Normal [facility] ED Clinical Summaryon 2024 ED Clinical Summary ED Clinical Summary [place] [address] ED Clinical Summary Person Information Name: JUDITH LAND/[facility] Age: 79 Years : 1945 Sex: Female Language: [place] Islander PCP: Kavon Sams MD Marital Status: Visit [...] 07/24/2024 21:56:11 07/24/2024 21:56:11 07/24/2024 21:56:11 ADDRESS: [address] [place] [id number] PHYS DOC NOTES: MEDICAL INFORMATION: Prescriptions Given: New Medications [id number], [address] [place], [place] [id number], [phone] acetaminophen-oxycodone (Percocet 5 mg-325 mg oral tablet) [...] Care, Adult Follow up: With: Address: When: Kavon Sams [address] [place] [address], [place] [address] Business (1) In 3 days [...] worsening symptoms. With: Address: When: Supa Owen [address] [place], [place] [id number] AptDeco (1Scope 5 In 3 days 07/27/2024 Comments: Call office tomorrow to arrange for short-term follow-up for your distal radius fracture. Take pain medication as prescribed. DIAGNOSIS: Accidental fall; Distal radius fracture; Wrist injury Normal [facility] ED Note-Physicianon 07-24-19 ED Note-Physician ED Note-Physician Basic Information Time Seen: Sd BRIGGS Demarco MonaeRatna 07/24/2024 18:55 Chief Complaint pt was at [...] is neurovascularly intact after placement. Demarco Beaver, Medical Decision Making 79-year-old female to the [...] PRN Follow-up With When Contact Information Supa Owen In 3 days 07/27/2024 EST [address] [place] [address]- Business (1) Additional Instructions: Call office tomorrow to arrange for short-term follow-up for your distal radius fracture. Take pain medication as prescribed. 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 Normal [facility] Comment on above: Result Comment: Elec tronically Signed By: Demarco Beaver DO\\.br\\Date and Time Signed: 07/24/24 21:44 EST ED Patient Summaryon 025 ED Patient Summary ED Patient Summary [facility] [address] [place], [place] [address] Patient Discharge Instructions Person Information Name: JUDITH LAND Age: 79 Years Arrival Date: 07/24/2024 18:45:15 Discharge Diagnosis: Accidental fall; Distal radius fracture; Wrist injury Primary Care Physician: Kavon Sams MD Provider Information Primary Provider: Demarco Beaver DO Advanced Director Video:None The exam and treatment you received in the Emergency Department were for an urgent problem and are not intended as complete care. It is important that you follow up with a doctor, nurse practitioner, or physician???s assistant basketball coach for ongoing care. If your symptoms become worse or you do not improve as expected and you are unable to reach your usual health care provider, you should return to the Emergency Department. We are available 24 hours a day. JUDITH LAND has been given the following list of patient education materials, prescriptions and follow-up instructions: Follow-up Instructions: With: Address: When: Kavon Sams [address] [facility], [facility] [place] [address] Business (1) In 3 days [...] worsening symptoms. With: Address: When: Supa Owen [address] [place] [address] Business (1) In 3 days 07/27/2024 [...] opioids can be used to help relieve xtjdlbvs-us-qoioog pain and are often prescribed following a [...] with your primary health care provider. o Xiomy russ (more content not included)... Normal [facility] Pre-Arrival Noteon Pre-Arrival Note Pre-Arrival Note Pre-Arrival Summary Name: , [facility] Current Date: 07/24/2024 18:52:03 EST Gender: Female Date of : Age: 79 Pre-Arrival Type: EMS ETA: 07/24/2024 19:03:00 EST Primary Care Physician: Presenting Problem: fall; r wrist deformity, hit head; thinners Pre-Arrival User: Jacquelyn Negrete RN Referring Source: Location: [place] Completion Date/Time: 07/24/2024 18:33:00 [facility] Emergency Department Pre-Hospital Report Form _ Vital Signs: Pre-Hospital Report: Treatment in Route: Response to Treatment: Misc. Issues: Normal [facility] Urine Cultureon 07-24-2024 Bacteria identified Cx Nom (U) <9,000 colonies/ml mixed bacterial skin contaminants 2 Days PERFORMED BY: [place] [address] PATHOLOGIST [employer]IST[employer] ANNE OLGUIN M.D. Normal [facility] Comment on above: Performed By: #### C FERDINAND ADDANISAUAPLUS #### [address] Urine cultureOrdered By: Cristian Sams on 07-24-2024 Bacteria identified Cx Nom (U) Urine culture [facility] Bacteria identified Cx Nom (U) Urine culture [facility] CNOVon 07-16-2024 CNOV Office Visit (NREUS2 ) -- JUDITH LAND ([id number]) 1945 F Date Time Provider Department 07/16/24 3:00 PM CHERIE CEDENO NREUS2 During your visit today, we recorded the following information about you: Pulse Blood pressure 97/minute 149/71 Ga Bob MA 07/16/2024 5:27 PM Signed Reason for WROTF Tablet to not get completed: Patient refused because declined all tablets Cherie Cedeno PA-C 07/16/2024 5:27 PM Signed [facility] - FOLLOW UP EVALUATION Primary Movement Disorders Neurologist: David Valente MD Primary Movement Disorders BRUCE: STEPHON Coe Md. Hoy (Inactive) No address on file Dear Md Kavon Sams (Inactive): I had the pleasure of seeing Ms. Land for follow-up today. As you know she [...] Take 20 mg by mouth once daily. lisinopril-hydrochlorothia zide 20-25 mg per tablet Take 1 tablet [...] 0-Normal. No (more content not included)... Normal [facility] CNOVon 02-22-2024 CNOV Office Visit (NREUS2 ) -- JUDITH LAND ([id number]) 1945 F Date Time Provider Department 02/22/24 3:00 PM CHERIE CEDENO NREUS2 During your visit today, we recorded the following information about you: Pulse Blood pressure 92/minute 133/73 Ga Bob MA 02/22/2024 4:46 PM Signed Reason for WROTF Tablet to not get completed: Patient wishes to abort because of stress/struggling or is interrupted by their injection mold technician. Cherie Cedeno PA-C 02/22/2024 4:46 PM Signed [facility] - FOLLOW UP EVALUATION Md Kavon Sams (Inactive) No address on file Dear Md Kavon Sams (Inactive): I had the pleasure of seeing Ms. Land for follow-up today. As you know she [...] some every day Dry mouth - please hand picker some OTC spray to help Please [...] that she is going to travel to [place] to see her friends, which prior to [...] Take 20 mg by mouth once daily. lisinopril-hydrochlorothia zide 20-25 mg per tablet Take 1 tablet [...] spontaneous s (more content not included)... Normal [facility] CNOVon 01-14-2024 CNOV Office Visit (NREUS2 ) -- JUDITH LAND ([id number]) 1945 F Date Time Provider Department 01/14/24 2:00 PM CHERIE CEDENO NREUS2 During your visit today, we recorded the following information about you: Pulse Blood pressure Weight Height 92/minute 144/63 54 kg 1.676 m Cherie Cedeno PA-C 01/14/2024 8:44 PM Signed [facility] - FOLLOW UP EVALUATION Md Kavon Sams (Inactive) No address on file Dear Md Kavon Sams (Inactive): I had the pleasure of seeing Ms. Land for follow-up today. As you know she [...] Take 20 mg by mouth once daily. lisinopril-hydrochlorothia zide 20-25 mg per tablet Take 1 tablet [...] or a (more content not included)... Normal [facility] Office Visiton 12-20-2023 Follow-up visit [id number] Donato Land en A 1945 F Date Provider Department Center 12/20/2023 3848-[facility]E [facility] Family History Problem Relation Age of Onset Stroke Mother Stroke Brother Other Mother's Sister Coronary artery disease Mother's Sister Stroke Maternal Grandmother Family Status - Relation Status Age at Mother Brother Mother's Sister Maternal Grandmother Level of Service:16025 [place] OFFICE/OUTPATIENT ESTABLISHED MOD MDM 30 MIN [facility] 36on 12-04-2023 36 . Normal [facility] Office Visiton 11-27-2023 Follow-up visit [id number] Donato Ladn A 1945 F Date Provider Department Center 11/27/2023 454-[facility] SURG Second [place] Family History Problem Relation Age of Onset Stroke Mother Stroke Brother Other Mother's Sister Coronary artery disease Mother's Sister Stroke Maternal Grandmother Family Status - Relation Status Age at Mother Brother Mother's Sister Maternal Grandmother Level of Service:74343 [place] POSTOP FOLLOW UP VISIT RELATED TO ORIGINAL PX Reason for Visit and Comments: Post-op [483] - Judith is here today for a post op visit for an incisional hernia, s/p 09/17/23 DaVinci incisional hernia repair. [facility] Fay 11-08-2023 CNPN Telephone (NREUS2) -- JUDITH LAND ([id number]) 1945 F Date Time Provider Department 11/08/23 DAVID VALENTE NRMIKES2 During your visit today, we recorded the following information about you: Leonora Cisneros 11/08/2023 12:01 PM Addendum Jaimee (pt' granddaughter) called to report this week pt's back to experiencing jerking movement. Pt started Amantadine 100 mg week of October 24 and first week medication helped dyskinesia. [phone] 09/13/23 FUJose w/Dulce Mariano RN 11/08/2023 12:57 [...] 20 mg by mouth once daily. - lisinopril-hydrochlorothia zide 20-25 mg per tablet Take 1 tablet [...] Encounter Statu (more content not included)... Normal [facility] 10-17-2023 [facility] Telephone (NREUS2) -- JUDITH LAND ([id number]) 1945 F Date Time Provider Department 10/17/23 DAVID VALENTE NREUS2 During your visit today, we recorded the following information about you: Gabbi Ennis 10/17/2023 10:17 AM Signed Judith phoned for results of MRI done on 10/06. She does not use and would like a return call. [phone] David Valente MD 10/17/2023 10:25 AM Signed [...] more detail at next office visit. Sabino Paul Gabbi 10/22/2023 9:39 AM Signed Pt's daughter phoned stating that her mother was supposed to have called regarding the increased dyskinesias that she has been experiencing. She also does not recall the discuss of the MRI results. Please call daughter Kathie only to discuss [phone]. I also updated all of the phone number in her chart to reflect only Kathie's. Dulce Melgar RN 10/22/2023 10:24 AM Signed Spoke with Kathie. As of 10/17/23 pt was supposed to start 100mg Amantadine daily for increased dyskinesia. Pt has not yet started, they would like the script sent to [facility] in [place] (instead of [facility]). Script sent as requested. Also reviewed MRI results with Kathie. She verbalizes understanding. No additional questions at this time. Dulce Melgar RN 10/22/2023 10:24 AM Signed Addended by: DULCE MELGAR on: 10/22/2023 10:24 AM Modules accepted: Orders Colon, Elesia 10/22/2023 10:30 AM Signed First Attempt - [...] 20 mg by mouth once daily. - lisinopril-hydrochlorothia zide 20-25 mg per tablet Take 1 tablet [...] mouth once daily. Cosign required by DAVID VALENTE[[id number]] Medications Discontinued During This Encounter Prescriptions - amantadine HCl (SYMMETREL) 100 mg tablet (Discontinued) Take 1 tablet by mouth once daily. (more content not included)... Normal [facility] -- JUDITH LAND ([id number]) 1945 F Date Time Provider Department 10/09/23 DAVID VALENTE NRMIKES2 During your visit today, we recorded the following information about you: Cooper Jin 10/09/2023 11:41 AM Signed Patients daughter calling to say there was medication discussed during last OV for dyskinesia. They want to know what it was and if it can be prescribed because she's still having this issue. Kathie Calvillo (Daughter) [phone] (Home Phone) David Valente MD 10/17/2023 9:43 AM Signed Dear Hiral, If she lives alone, I'd prefer the zonisamide. If she lives with someone who can monitor for the possible cognitive side effects of amantadine, I'd prefer amantadine. Thanks! -Hiral Miguel APRN.FIELD ASSISTANT 10/17/2023 5:29 PM Signed Addended by: HIRAL ORTEGA on: 10/17/2023 05:29 PM Modules accepted: [...] 20 mg by mouth once daily. - lisinopril-hydrochlorothia zide 20-25 mg per tablet Take 1 tablet [...] times a day. Encounter Status:Closed by GABBI ENNIS on 10/17/23 Normal [facility] MR Cervical spine WO contras ton 10-07-2023 [...] are otherwise unremarkable. DIVISION OF RADIOLOGY Provider, [facility] - 10/07/2023 * * *Final [...] lumbar spine wi (more content not included)... [facility] MR Lumbar spine WO contrasto n [...] are otherwise unremarkable. DIVISION OF RADIOLOGY Provider, [facility] - 10/07/2023 * * *Final [...] the cervical, thor (more content not included)... [facility] Radiology Study observation (narrative) [facility] MR Thoracic spine WO contras ton [...] are otherwise unremarkable. DIVISION OF RADIOLOGY Provider, [facility] - 10/07/2023 * * *Final Report* * * DATE OF EXAM: Oct 07 2023 11:41[facility] - MRI THORACIC SPINE WO IVCON [...] spine without contrast. (more content not included)... [facility] MRI CERVICAL SPINE WO IVCONo n [...] L4-5 i (more content not included)... Normal [facility] MRI LUMBAR SPINE WO IVCONon 10-07-2023 MRI [...] Anatomic Thoracic/L (more content not included)... Normal [facility] MRI THORACIC SPINE WO IVCONo n 10-07-2023 [...] the l (more content not included)... Normal [facility] No Panel Informationon 10-06 IMPRESSION: Degenerative changes [...] and assume there are 5 lumbar-type vertebrae. Clothing Supervisor: PSCB Transcribe Date/Time: Oct 07 2023 12:07P Dictated by : YANETH SALDAÑA MD This examination was interpreted and the report reviewed and electronically signed by: YANETH SALDAÑA MD on Oct 07 2023 12:21PM [facility] DIVISION OF RADIOLOGY Radiology Study observation (narrative) [facility] No Panel InformationOrdered By: [facility]cf Provider on 10-07-2023 [facility] Office Visiton 09-26-2023 Follow-up visit [id number] EmeryDonato raffy Davis 1945 F Date Provider Department Center 09/26/2023 Corazon-[facility] Second Fl Family History Problem Relation Age of Onset Stroke Mother Stroke Brother Other Mother's Sister Coronary artery disease Mother's Sister Stroke Maternal Grandmother Family Status - Relation Status Age at Mother Brother Mother's Sister Maternal Grandmother Level of Service:30215 [place] POSTOP FOLLOW UP VISIT RELATED TO ORIGINAL PX Reason for Visit and Comments: Post-op [483] - Judith is here today for a post op visit for an incisional hernia, s/p 09/17/23 DaVinci incisional hernia repair. Normal [facility] 30on 09-18-2023 30 The patient [...] Free from fall injury Outcome: Progressing Normal [facility] BASIC METABOLIC PANELon - Anion gap [Moles/Vol] 11 mmol/L Normal 7-20 [facility] Comment on above: Performed By: #### L [id number] #### [facility] ([facility]) [address] [place] [address] Calcium [Mass/Vol] 9.0 mg/dL Normal 8.6-10.3 [facility] Comment on above: Performed By: #### L [id number] #### [facility] ([facility]) [address] [place] [address] Chloride [Moles/Vol] 107 mmol/L Normal 98-107 [facility] Comment on above: Performed By: #### L [id number] #### [facility] ([facility]) [address] [place] [address] CO2 [Moles/Vol] 25 mmol/L Normal 21-31 [facility] Comment on above: Performed By: #### L [id number] #### [facility] ([facility]) [address] [place] [address] Creatinine [Mass/Vol] 0.93 mg/dL Normal 0.60-1.20 [facility] Comment on above: Performed By: #### L [id number] #### [facility] ([facility]) [address] [place] [address] GLOMERULAR FILTRATION RATE ML/MIN/1.73 SQ M.PREDICTED 63.3 mL/min/1.73m*2 Normal >60.0 [facility] Comment on above: Result Comment: [facility]???s estimated glomerular filtration rate (eGFR) [...] individuals. Performed By: #### L [id number] #### [facility] ([facility]) [address] [place] [address] Glucose [Mass/Vol] 112 mg/dL High 70-100 [facility] Comment on above: Performed By: #### L [id number] #### [facility] ([facility] [address] [place] [address] Potassium [Moles/Vol] 4.5 mmol/L Normal 3.5-5.1 [facility] Comment on above: Performed By: #### L [id number] #### [facility] ([facility]) [address] [place] [address] Sodium [Moles/Vol] 138 mmol/L Normal 136-145 [facility] Comment on above: Performed By: #### L [id number] #### [facility] ([facility]) [address] [place] [address] Urea nitrogen [Mass/Vol] 21 mg/dL Normal 7-25 [facility] Comment on above: Performed By: #### L [id number] #### [facility] ([facility]) [address] [place] [address] UREA NITROGEN/CREATININE (MASS RATIO) IN SER/PLAS 22.6 Normal [facility] Comment on above: Performed By: #### L [id number] #### [facility] ([facility]) [address] [place] [address] Anion gap [Moles/Vol] 10 mmol/L Normal 7-20 [facility] Comment on above: Performed By: #### L [id number] #### [facility] ([facility]) [address] [place] [address] Calcium [Mass/Vol] 9.1 mg/dL Normal 8.6-10.3 [facility] Comment on above: Performed By: #### L [id number] #### [facility] ([facility]) [address] [place] [address] Chloride [Moles/Vol] 106 mmol/L Normal 98-107 [facility] Comment on above: Performed By: #### L [id number] #### [facility] ([facility]) [address] [place] [address] CO2 [Moles/Vol] 26 mmol/L Normal 21-31 [facility] Comment on above: Performed By: #### L [id number] #### [facility] ([facility]) [address] [place] [address] Creatinine [Mass/Vol] 0.96 mg/dL Normal 0.60-1.20 [facility] Comment on above: Performed By: #### L [id number] #### [facility] ([facility]) [address] [place] [address] GLOMERULAR FILTRATION RATE ML/MIN/1.73 SQ M.PREDICTED 60.9 mL/min/1.73m*2 Normal >60.0 [facility] Comment on above: Result Comment: [facility]???s estimated glomerular filtration rate (eGFR) [...] individuals. Performed By: #### L [id number] #### [facility] ([facility]) [address] [place] [address] Glucose [Mass/Vol] 126 mg/dL High 70-100 [facility] Comment on above: Performed By: #### L [id number] #### [facility] ([facility] [address] [place] [address] Potassium [Moles/Vol] 4.2 mmol/L Normal 3.5-5.1 [facility] Comment on above: Performed By: #### L [id number] #### [facility] ([facility] [address] [place] [address] Sodium [Moles/Vol] 138 mmol/L Normal 136-145 [facility] Comment on above: Performed By: #### L [id number] #### [facility] ([facility]) [address] [place] [address] Urea nitrogen [Mass/Vol] 22 mg/dL Normal 7-25 [facility] Comment on above: Performed By: #### L [id number] #### [facility] ([facility] [address] [place] [address] UREA NITROGEN/CREATININE (MASS RATIO) IN SER/PLAS 22.9 Normal [facility] Comment on above: Performed By: #### L [id number] #### [facility] ([facility]) [address] [place] [address] CBCon 09-18-2023 Erythrocyte distribution width (RBC) [Ratio] 14.5 % Normal 11.5-15.0 [facility] Comment on above: Performed By: #### L [id number] #### [facility] ([facility]) [address] [place] [address] ERYTHROCYTE MEAN CORPUSCULAR HEMOGLOBIN CONCENTRATION (G/DL) BY AUTOMATED 32.1 g/dL Normal 32.0-35.0 [facility] Comment on above: Performed By: #### L [id number] #### [facility] ([facility]) [address] [place] [address] Hematocrit (Bld) [Volume fraction] 40.5 % Normal 36.0-48.0 [facility] Comment on above: Performed By: #### L [id number] #### [facility] ([facility]) [address] [place] [address] Hemoglobin (Bld) [Mass/Vol] 13.0 g/dL Normal 12.0-15.0 [facility] Comment on above: Performed By: #### L [id number] #### [facility] ([facility]) [address] [place] [address] MCH (RBC) [Entitic mass] 30.8 pg Normal 27.0-33.0 [facility] Comment on above: Performed By: #### L [id number] #### [facility] ([facility]) [address] [place] [address] MCV (RBC) [Entitic vol] 96.0 fL Normal 82.0-98.0 [facility] Comment on above: Performed By: #### L [id number] #### [facility] ([facility]) [address] [address] PLATELETS (10*3/UL) IN BLOOD AUTOMATED COUNT 309 10*3/uL Normal 150-400 [facility] Comment on above: Performed By: #### L [id number] #### [facility] ([facility]) [address] [address] RBC (Bld) [#/Vol] 4.22 10*6/uL Normal 3.80-5.00 [facility] Comment on above: Performed By: #### L [id number] #### [facility] ([facility] [address] [place] [address] WBC (Bld) [#/Vol] 6.97 10*3/uL Normal 4.00-10.60 [facility] Comment on above: Performed By: #### L [id number] #### [facility] ([facility]) [address] [place] [address] CBC WITH AUTO DIFFERENTIALon 09-18-2023 Erythrocyte distribution width (RBC) [Ratio] 14.4 % Normal 11.5-15.0 [facility] Comment on above: Performed By: #### L [id number] ####[facility] ([facility])[address] [place] [address] ERYTHROCYTE MEAN CORPUSCULAR HEMOGLOBIN CONCENTRATION (G/DL) BY AUTOMATED 33.0 g/dL Normal 32.0-35.0 [facility] Comment on above: Performed By: #### L [id number] ####[facility] ([facility])[address] [place] [address] Hematocrit (Bld) [Volume fraction] 39.7 % Normal 36.0-48.0 [facility] Comment on above: Performed By: #### L [id number] ####[facility] ([facility] [place] [address] Hemoglobin (Bld) [Mass/Vol] 13.1 g/dL Normal 12.0-15.0 [facility] Comment on above: Performed By: #### L [id number] ####[facility] ([facility])[address] [place] [address] MCH (RBC) [Entitic mass] 31.3 pg Normal 27.0-33.0 [facility] Comment on above: Performed By: #### L [id number] ####[facility] ([facility] [place])[address] [place] [address] MCV (RBC) [Entitic vol] 95.0 fL Normal 82.0-98.0 [facility] Comment on above: Performed By: #### L [id number] ####[facility] ([facility])[address] [place] [address] NRBC (PER 100 WBCS) BY AUTOMATED COUNT 0.0 % Normal 0 [facility] Comment on above: Performed By: #### L [id number] ####[facility] ([facility])[address] [place] [address] PLATELETS (10*3/UL) IN BLOOD AUTOMATED COUNT 301 10*3/uL Normal 150-400 [facility] Comment on above: Performed By: #### L [id number] ####[facility] ([facility])[address] [place] [address] RBC (Bld) [#/Vol] 4.18 10*6/uL Normal 3.80-5.00 [facility] Comment on above: Performed By: #### L [id number] ####[facility] ([facility])[address] [place] [address] WBC (Bld) [#/Vol] 6.49 10*3/uL Normal 4.00-10.60 [facility] Comment on above: Performed By: #### L [id number] ####[facility] ([facility])[address] [place] [address] MAGNESIUMon 09-18-2023 Magnesium [Mass/Vol] 1.8 mg/dL Low 1.9-2.7 [facility] Comment on above: Performed By: #### L [id number] #### [facility] ([facility]) [address] [place] [address] MANUAL DIFFERENTIALon 2023 BASOPHILS (10*3/UL) IN BLOOD BY CALCULATION 0.01 10*3/uL Normal 0.00-0.20 [facility] Comment on above: Performed By: #### L [id number] ####[facility] ([facility])[address] [place] [address] BASOPHILS/100 LEUKOCYTES IN BLOOD BY AUTOMATED COUNT 0.2 % Normal 0.0-1.0 [facility] Comment on above: Performed By: #### L [id number] ####[facility] ([facility])[address] [place] [address] EOSINOPHILS (10*3/UL) IN BLOOD BY CALCULATION 0.00 10*3/uL Normal 0.00-0.50 [facility] Comment on above: Performed By: #### L [id number] ####[facility] ([facility])[address] [place] [address] EOSINOPHILS/100 LEUKOCYTES IN BLOOD BY AUTOMATED COUNT 0.0 % Normal 0.0-6.0 [facility] Comment on above: Performed By: #### L [id number] ####[facility] ([facility])[address] [place] [address] IMMATURE GRANULOCYTES (10*3/UL) IN BLOOD BY CALCULATION 0.02 10*3/uL Normal 0.00-0.20 [facility] Comment on above: Performed By: #### L [id number] ####[facility] ([facility])[address] [place] [address] IMMATURE GRANULOCYTES/100 LEUKOCYTES IN BLOOD BY AUTOMATED COUNT 0.3 % Normal 0.0-1.0 [facility] Comment on above: Performed By: #### L [id number] ####[facility] ([facility])[address] [place] [address] LYMPHOCYTES (10*3/UL) IN BLOOD BY CALCULATION 0.77 10*3/uL Low 1.20-4.00 [facility] Comment on above: Performed By: #### L [id number] ####[facility] ([facility])[address] [place] [address] LYMPHOCYTES/100 LEUKOCYTES IN BLOOD BY AUTOMATED COUNT 11.9 % Low 20.0-45.0 [facility] Comment on above: Performed By: #### L [id number] ####[facility] ([facility])[address] [place] [address] MONOCYTES (10*3/UL) IN BLOOD BY CALCUATION 0.36 10*3/uL Normal 0.10-1.00 [facility] Comment on above: Performed By: #### L [id number] ####[facility] ([facility])[address] [place] [address] MONOCYTES/100 LEUKOCYTES IN BLOOD BY AUTOMATED COUNT 5.5 % Normal 5.0-12.0 [facility] Comment on above: Performed By: #### L [id number] ####[facility] ([facility])[address] [place] [address] NEUTROPHILS (10*3/UL) IN BLOOD BY CALCULATION 5.3 10*3/uL Normal 1.6-7.6 [facility] Comment on above: Performed By: #### L [id number] ####[facility] ([facility])[address] [place] [address] NEUTROPHILS/100 LEUKOCYTES IN BLOOD BY AUTOMATED COUNT 82.1 % High 40.0-72.0 [facility] Comment on above: Performed By: #### L [id number] ####[facility] [place] [address] 30on 09-17-2023 30 The patient is Moder ately Stable - Low risk of patient condition declining or worsening The patient's goals for the shift include COMFORT The clinical goals for the shift include VSS Problem: Pain - Adult Goal: Verbalizes/displays adequate comfort level or baseline comfort level Outcome: Progressing Problem: Safety - Adult Goal: Free from fall injury Outcome: Progressing Normal [facility] 30 The patient is Moder ately Stable - Low risk of patient condition declining or worsening The patient's goals for the shift include COMFORT The clinical goals for the shift include VSS Normal [facility] HPon 09-17-2023 HP H&P reviewed. The tyler reyes was examined and there are no changes to the H&P. Normal [facility] MRSA/MSSA DNA NASALon 2023 MRSA DNA Negative Normal Negative [facility] Comment on above: Order Comment: [...] preclude nasal colonization. Performed By: #### L [id number] ####[facility] ([facility])[address] [place] [address] MSSA DNA Negative Normal Negative [facility] Comment on above: Order Comment: [...] preclude nasal colonization. Performed By: #### L [id number] ####[facility] ([facility])[address] [place] [address] OPNOTEon 09-17-2023 OPNOTE DAVINCI INCISIONAL H ERNIA REPAIR WITH MESH Operative Note Date: 09/17/2023 Location: [facility] OR Name: Judith Land, : 1945, Diagnosis Pre-op Diagnosis * Incisional hernia, without obstruction or gangrene [K43.2] Post-op Diagnosis * Incisional hernia, without obstruction or gangrene [K43.2] Procedures * DAVINCI INCISIONAL HERNIA REPAIR WITH MESH Surgeons * Verena Hutson - Primary Procedure Summary Anesthesia: General ASA: III Estimated Blood Loss: 10 mL Total IV Fluids: 1500 mL Drains: [REMOVED] Urethral Catheter 16 Fr. (Removed) Implants Type Name Action Serial No. Mesh MESH,SURCIGAL,PROGRIP,[id number] CM - [id number] Implanted Staff: Room Service Server: Angelic Conrad RN Relief Room Service Server: Gay Barnard RN Scrub Person: Carola Chatman CST; Rosana Rubi CST Indications: Judith Land is an 78 y.o. female who is [...] was desuf (more content not included)... Normal [facility] POCT GLUCOSE METER UNSOLICIT ED RESULTSon 09-17-2023 Glucose [Mass/Vol] 71 mg/dL Normal 70-105 [facility] Comment on above: Order Comment: Waive d Testing in the ED is performed under the ED CLIA certificate #[id number]. Result Comment: jhag eman Performed By: #### L [id number] #### [facility] ([facility]) [address] [place] [address] SUJEY BY IFA WITH REFLEXon Nuclear Ab Ql (S) Negative Normal Negative [facility] Comment on above: Order Comment: Speci men Type: BLOOD SPECIMENOrdering Facility: [facility] Address: [address] [place] [address] Result Comment: Anti -nuclear antibody test is used as an aid in diagnosis of systemic autoimmune diseases. Where positive and clinically warranted, follow-up using disease-specific testing is recommended. Low positive titers are not uncommon with advanced age, certain chronic infections, and malignancies among others. Test methodology: Indirect fluorescence immunoassay (IFA) using HEp-2 cells. Performed By: #### A NAIFR ####[facility] [id number] [place] [address] [place] CBC W Auto Differential pane l (Bld)on 09-13-2023 Basophils (Bld) [#/Vol] 0.10 10*3/uL <0.11 k/uL [facility] Basophils/100 WBC (Bld) 1.3 % [facility] Differential cell count method Nom (Bld) Auto [facility] Eosinophils (Bld) [#/Vol] 0.67 10*3/uL High <0.46 k/uL [facility] Eosinophils/100 WBC (Bld) 8.4 % [facility] Erythrocyte distribution width (RBC) [Ratio] 14.1 % 11.5 - 15.0 % [facility] Hematocrit (Bld) [Volume fraction] 46.3 % High 36.0 - 46.0 % [facility] Hemoglobin (Bld) [Mass/Vol] 15.3 g/dL 11.5 - 15.5 g/dL [facility] Immature granulocytes (Bld) [#/Vol] <0.10 k/uL [facility] Immature granulocytes/100 WBC (Bld) 0.0 % [facility] Lymphocytes (Bld) [#/Vol] 3.14 10*3/uL 1.00 - 4.00 k/uL [facility] Lymphocytes/100 WBC (Bld) 39.3 % [facility] MCH (RBC) [Entitic mass] 31.4 pg 26.0 - 34.0 pg [facility] MCHC (RBC) [Mass/Vol] 33.0 g/dL 30.5 - 36.0 g/dL [facility] MCV (RBC) [Entitic vol] 94.9 fL 80.0 - 100.0 fL [facility] Monocytes (Bld) [#/Vol] 0.83 10*3/uL <0.87 k/uL [facility] Monocytes/100 WBC (Bld) 10.4 % [facility] Neutrophils (Bld) [#/Vol] 3.26 10*3/uL 1.45 - 7.50 k/uL [facility] Neutrophils/100 WBC (Bld) 40.6 % [facility] Nucleated RBC (Bld) [#/Vol] <0.01 k/uL [facility] Nucleated RBC/100 WBC (Bld) [Ratio] 0.0 /100 WBC [facility] Platelet mean volume (Bld) [Entitic vol] 11.7 fL 9.0 - 12.7 fL [facility] Platelets (Bld) [#/Vol] 296 10*3/uL 150 - 400 k/uL [facility] RBC (Bld) [#/Vol] 4.88 10*6/uL 3.90 - 5.2 0 m/uL [facility] WBC (Bld) [#/Vol] 8.00 10*3/uL 3.70 - 11.00 k/uL [facility] Basophils (Bld) [#/Vol] 0.10 10*3/uL Normal <0.11 [facility] Comment on above: Order Comment: Speci men Type: BLOOD SPECIMENOrdering Facility: [facility] Address: [facility] [place] [address] Performed By: #### 5 7021-8, 4537-7 ####[facility] [id number] [address] [place] Basophils/100 WBC (Bld) 1.3 % Normal [facility] Comment on above: Order Comment: Speci men Type: BLOOD SPECIMENOrdering Facility: [facility] Address: [address] [place] [address] Performed By: #### 5 7021-8, 4537-7 ####[facility] [id number] [place] [address] [place] Differential cell count method Nom (Bld) Auto Normal [facility] Comment on above: Order Comment: Speci men Type: BLOOD SPECIMENOrdering Facility: [facility] Address: [address] [place] [address] Performed By: #### 5 7021-8, 4536-7 ####[facility] [id number] [place] [address] [place] Eosinophils (Bld) [#/Vol] 0.67 10*3/uL High <0.46 [facility] Comment on above: Order Comment: Speci men Type: BLOOD SPECIMENOrdering Facility: [facility] Address: [address] [place] [address] Performed By: #### 5 7021-8, 4536-7 ####[facility] [id number] [place] [address] [place] Eosinophils/100 WBC (Bld) 8.4 % Normal [facility] Comment on above: Order Comment: Speci men Type: BLOOD SPECIMENOrdering Facility: [facility] Address: [address] [place] [address] Performed By: #### 5 7021-8, 7-7 ####[facility] [id number] [place] [address] [place] Erythrocyte distribution width (RBC) [Ratio] 14.1 % Normal 11.5-15.0 [facility] Comment on above: Order Comment: Speci men Type: BLOOD SPECIMENOrdering Facility: [facility] Address: [address] [place] [address] Performed By: #### 5 7021-8, 4536-7 ####[facility] [id number] [place] [address] [place] Hematocrit (Bld) [Volume fraction] 46.3 % High 36.0-46.0 [facility] Comment on above: Order Comment: Speci men Type: BLOOD SPECIMENOrdering Facility: [facility] Address: [address] [place] [address] Performed By: #### 5 7021-8, 4536-7 ####[facility] [id number] [place] [address] [place] Hemoglobin (Bld) [Mass/Vol] 15.3 g/dL Normal 11.5-15.5 [facility] Comment on above: Order Comment: Speci men Type: BLOOD SPECIMENOrdering Facility: [facility] Address: [address] [place] [address] Performed By: #### 5 7021-8, 4536-7 ####[facility] [id number] [place] [address] [place] Immature granulocytes (Bld) [#/Vol] 10*3/uL Normal <0.10 [facility] Comment on above: Order Comment: Speci men Type: BLOOD SPECIMENOrdering Facility: [facility] Address: [address] [place] [address] Performed By: #### 5 7021-8, 4536-7 ####[facility] [id number] [place] [address] [place] Immature granulocytes/100 WBC (Bld) 0.0 % Normal [facility] Comment on above: Order Comment: Speci men Type: BLOOD SPECIMENOrdering Facility: [facility] Address: [address] [place] [address] Performed By: #### 5 7021-8, 4536-7 ####[facility] [id number] [place] [address] [place] Lymphocytes (Bld) [#/Vol] 3.14 10*3/uL Normal 1.00-4.00 [facility] Comment on above: Order Comment: Speci men Type: BLOOD SPECIMENOrdering Facility: [facility] Address: [address] [place] [address] Performed By: #### 5 7021-8, 4537-7 ####[facility] [id number] [place] [address] [place] Lymphocytes/100 WBC (Bld) 39.3 % Normal [facility] Comment on above: Order Comment: Speci men Type: BLOOD SPECIMENOrdering Facility: [facility] Address: [address] [place] [address] Performed By: #### 5 7021-8, 4537-7 ####[facility] [id number] [place] [address] [place] MCH (RBC) [Entitic mass] 31.4 pg Normal 26.0-34.0 [facility] Comment on above: Order Comment: Speci men Type: BLOOD SPECIMENOrdering Facility: [facility] Address: [address] [place] [address] Performed By: #### 5 7021-8, 4537-7 ####[facility] [id number] [place] [address] [place] MCHC (RBC) [Mass/Vol] 33.0 g/dL Normal 30.5-36.0 [facility] Comment on above: Order Comment: Speci men Type: BLOOD SPECIMENOrdering Facility: [facility] Address: [address] [place] [address] Performed By: #### 5 7021-8, 4537-7 ####[facility] [id number] [place] [address] [place] MCV (RBC) [Entitic vol] 94.9 fL Normal 80.0-100.0 [facility] Comment on above: Order Comment: Speci men Type: BLOOD SPECIMENOrdering Facility: [facility] Address: [address] [place] [address] Performed By: #### 5 7021-8, 7 ####[facility] [id number] [place] [address] [place] Monocytes (Bld) [#/Vol] 0.83 10*3/uL Normal <0.87 [facility] Comment on above: Order Comment: Speci men Type: BLOOD SPECIMENOrdering Facility: [facility] Address: [address] [place] [address] Performed By: #### 5 7021-8, 7 ####[facility] [id number] [place] [address] [place] Monocytes/100 WBC (Bld) 10.4 % Normal [facility] Comment on above: Order Comment: Speci men Type: BLOOD SPECIMENOrdering Facility: [facility] Address: [address] [place] [address] Performed By: #### 5 7021-8, 7 ####[facility] [id number] [place] [address] [place] Neutrophils (Bld) [#/Vol] 3.26 10*3/uL Normal 1.45-7.50 [facility] Comment on above: Order Comment: Speci men Type: BLOOD SPECIMENOrdering Facility: [facility] Address: [address] [place] [address] Performed By: #### 5 7021-8, 7 ####[facility] [id number] [place] [address] [place] Neutrophils/100 WBC (Bld) 40.6 % Normal [facility] Comment on above: Order Comment: Speci men Type: BLOOD SPECIMENOrdering Facility: [facility] Address: [address] [place] [address] Performed By: #### 5 7021-8, 4536-7 ####[facility]IA [id number] [place] [address] [place] Nucleated RBC (Bld) [#/Vol] 10*3/uL Normal <0.01 [facility] Comment on above: Order Comment: Speci men Type: BLOOD SPECIMENOrdering Facility: [facility] Address: [address] [place] [address] Performed By: #### 5 7021-8, 4536-7 ####[facility]IA [id number] [place] [address] [place] Nucleated RBC/100 WBC (Bld) [Ratio] 0.0 /100 WBC Normal [facility] Comment on above: Order Comment: Speci men Type: BLOOD SPECIMENOrdering Facility: [facility] Address: [address] [place] [address] Performed By: #### 5 7021-8, 4536-7 ####[facility] [id number] [place] [address] [place] Platelet mean volume (Bld) [Entitic vol] 11.7 fL Normal 9.0-12.7 [facility] Comment on above: Order Comment: Speci men Type: BLOOD SPECIMENOrdering Facility: [facility] Address: [address] [place] [address] Performed By: #### 5 7021-8, 4536-7 ####[facility]IA [id number] [place] [address] [place] Platelets (Bld) [#/Vol] 296 10*3/uL Normal 150-400 [facility] Comment on above: Order Comment: Speci men Type: BLOOD SPECIMENOrdering Facility: [facility] Address: [address] [place] [address] Performed By: #### 5 7021-8, 4537-7 ####[facility] [id number] [place] [address] [place] RBC (Bld) [#/Vol] 4.88 10*6/uL Normal 3.90-5.20 [facility] Comment on above: Order Comment: Speci men Type: BLOOD SPECIMENOrdering Facility: [facility] Address: [address] [place] [address] Performed By: #### 5 7021-8, 4537-7 ####[facility] [id number] [place] [address] [place] WBC (Bld) [#/Vol] 8.00 10*3/uL Normal 3.70-11.00 [facility] Comment on above: Order Comment: Speci men Type: BLOOD SPECIMENOrdering Facility: [facility] Address: [address] [place] [address] Performed By: #### 5 7021-8, 4537-7 ####[facility] [id number] [address] [place] CNOVon 09-13-2023 CNOV Office Visit (NREUS2 ) -- JUDITH LAND ([id number]) 1945 F Date Time Provider Department 09/13/23 9:30 AM DAVID VALENTE NREUS2 During your visit today, we recorded the following information about you: Pulse Blood pressure Weight Height 85/minute 132/71 55.8 kg 1.676 m David Valente MD 09/13/2023 9:36 PM Signed [facility] - NEW PATIENT EVALUATION thank you for referring Ms. Land to our clinic today. As you know [...] Row Office Visit from 09/13/2023 in [facility] T Score 39.8 Global [...] Take 20 mg by mouth once daily. lisinopril-hydrochlorothia zide 20-25 mg per tablet Take 1 tablet [...] tablet by (more content not included)... Normal [facility] metabolic 2000 panelon 09-13-2023 Albumin [Mass/Vol] 4.3 g/dL 3.9 - 4.9 g/dL [facility] ALP [Catalytic activity/Vol] 92 U/L 34 - 123 U/L [facility] ALT [Catalytic activity/Vol] 14 U/L 7 - 38 U/L [facility] Anion gap [Moles/Vol] 13 mmol/L 9 - 18 mmol/L [facility] AST [Catalytic activity/Vol] 24 U/L 13 - 35 U/L [facility] Bilirubin [Mass/Vol] 0.3 mg/dL 0.2 - 1 .3 mg/dL [facility] Calcium [Mass/Vol] 11.0 mg/dL High 8.5 - 10. 2 mg/dL [facility] Chloride [Moles/Vol] 102 mmol/L 97 - 10 5 mmol/L [facility] CO2 [Moles/Vol] 25 mmol/L 22 - 30 mmol/L [facility] Creatinine [Mass/Vol] 0.95 mg/dL 0.58 - 0.96 mg/dL [facility] Estimated Glomerular Filtration Rate 62 mL/min/1.73m >=60 mL/min/1.73 m [facility] Glucose [Mass/Vol] 84 mg/dL 74 - 99 mg/dL [facility] Potassium [Moles/Vol] 4.0 mmol/L 3.7 - 5.1 mmol/L [facility] Protein [Mass/Vol] 6.7 g/dL 6.3 - 8.0 g/dL [facility] Sodium [Moles/Vol] 140 mmol/L 136 - 144 mmol/L [facility] Urea nitrogen [Mass/Vol] 20 mg/dL 7 - 21 mg/dL [facility] Albumin [Mass/Vol] 4.3 g/dL Normal 3.9-4.9 [facility] Comment on above: Order Comment: Speci men Type: BLOOD SPECIMENOrdering Facility: [facility] Address: [address] [place] [address] Performed By: #### 2 4323-8, 3016-3 ####[facility] [id number] [address] [address] [id number] [address] [place] ALP [Catalytic activity/Vol] 92 U/L Normal 34-123 [facility] Comment on above: Order Comment: Speci men Type: BLOOD SPECIMENOrdering Facility: [facility] Address: [address] [place] [address] Performed By: #### 2 4323-8, 6-3 ####[facility] [id number] [place] [address] [place] ALT [Catalytic activity/Vol] 14 U/L Normal 7-38 [facility] Comment on above: Order Comment: Speci men Type: BLOOD SPECIMENOrdering Facility: [facility] Address: [address] [place] [address] Performed By: #### 2 4323-8, 3015-3 ####[facility] [id number] [place] [address] [place] Anion gap [Moles/Vol] 13 mmol/L Normal 9-18 [facility] Comment on above: Order Comment: Speci men Type: BLOOD SPECIMENOrdering Facility: [facility] Address: [address] [place] [address] Performed By: #### 2 4323-8, 3 ####[facility] [id number] [place] [address] [place] AST [Catalytic activity/Vol] 24 U/L Normal 13-35 [facility] Comment on above: Order Comment: Speci men Type: BLOOD SPECIMENOrdering Facility: [facility] Address: [address] [place] [address] Performed By: #### 2 4323-8, 6-3 ####[facility] [id number] [place] [id number] [place] Bilirubin [Mass/Vol] 0.3 mg/dL Normal 0.2-1.3 [facility] Comment on above: Order Comment: Speci men Type: BLOOD SPECIMENOrdering Facility: [facility] Address: [address] [place] [id number] Performed By: #### 2 4323-8, 3015-3 ####[facility] [id number] [address] [address] [place] Calcium [Mass/Vol] 11.0 mg/dL High 8.5-10.2 [facility] Comment on above: Order Comment: Speci men Type: BLOOD SPECIMENOrdering Facility: [facility] Address: [address] [place], [place] [address] Performed By: #### 2 4323-8, 3015-3 ####[facility] [id number] [place] [address] [place] Chloride [Moles/Vol] 102 mmol/L Normal 97-105 [facility] Comment on above: Order Comment: Speci men Type: BLOOD SPECIMENOrdering Facility: [facility] Address: [address] [place] [address] Performed By: #### 2 4323-8, 3015-3 ####[facility] LABCLIA [id number] [place] [address] [place] CO2 [Moles/Vol] 25 mmol/L Normal 22-30 [facility] Comment on above: Order Comment: Speci men Type: BLOOD SPECIMENOrdering Facility: [facility] [facility] Address: [address] [place], [place] [address] Performed By: #### 2 4323-8, 3015-3 ####[facility] LABCLIA [id number] [place] [id number] [place] Creatinine [Mass/Vol] 0.95 mg/dL Normal 0.58-0.96 [facility] Comment on above: Order Comment: Speci men Type: BLOOD SPECIMENOrdering Facility: [facility] Address: [address] [place], [place] [address] Performed By: #### 2 4323-8, 3015-3 ####[facility]CL[facility] [id number] [place] [address] [place] Creatinine and Glomerular filtration rate.predicted panel (S/P/Bld) 62 mL/min/1.73m??? Normal >=60 [facility] Comment on above: Order Comment: Mery goodwin Type: BLOOD SPECIMENOrdering Facility: [facility] Address: [address] [place] [address] Result Comment: Adrienne mated Glomerular Filtration Rate [...] GFR. Performed By: #### 2 4323-8, 3015-3 ####[facility] LABIA [id number] [place] [address] [place] Glucose [Mass/Vol] 84 mg/dL Normal 74-99 [facility] Comment on above: Order Comment: Mery goodwin Type: BLOOD SPECIMENOrdering Facility: [facility] Address: [address] [place] [address] Result Comment: The British Diabetes Association (ADA) provides guidance for cutoff [...] Standards of Medical Care in Diabetes 2016, British Diabetes Association. Diabetes Care. 2016.39(Suppl 1). Performed By: #### 2 4323-8, 3015-3 ####[facility]CLIA [id number] [place] [address] [place] Potassium [Moles/Vol] 4.0 mmol/L Normal 3.7-5.1 [facility] Comment on above: Order Comment: Speci men Type: BLOOD SPECIMENOrdering Facility: [facility] Address: [address] [place] [address] Performed By: #### 2 4323-8, 3016-3 ####[facility]CLIA [id number] [place] [address] [place] Protein [Mass/Vol] 6.7 g/dL Normal 6.3-8.0 [facility] Comment on above: Order Comment: Speci men Type: BLOOD SPECIMENOrdering Facility: [facility] Address: [address] [place] [address] Performed By: #### 2 4323-8, 6-3 ####[facility] LABIA [id number] [place] [address] [place] Sodium [Moles/Vol] 140 mmol/L Normal 136-144 [facility] Comment on above: Order Comment: Speci men Type: BLOOD SPECIMENOrdering Facility: [facility] Address: [address] [place] [address] Performed By: #### 2 4323-8, 3016-3 ####[facility] LABIA [id number] [place] [address] [place] Urea nitrogen [Mass/Vol] 20 mg/dL Normal 7-21 [facility] Comment on above: Order Comment: Speci men Type: BLOOD SPECIMENOrdering Facility: [facility] Address: [address] [place] [address] Performed By: #### 2 4323-8, 3016-3 ####[facility] LABCLIA [id number] [place] [id number] [place] ESR Westergren method (Bld) [Velocity]on 09-13-2023 ESR (Bld) [Velocity] 10 mm/h 0 - 20 mm/hr [facility] ESR (Bld) [Velocity] 10 mm/h Normal 0-20 [facility] Comment on above: Order Comment: Speci men Type: BLOOD SPECIMENOrdering Facility: [facility] Address: [address] [place] [address] Performed By: #### 5 7021-8, 4537-7 ####[facility]CLIA [id number] [place] [address] [place] FOLATE SERUMon 09-13-2023 Folate [Mass/Vol] >4.7 ng/mL [facility] Folate SerPl-mCncon 09-13-19 24 Folate [Mass/Vol] ng/mL Normal >4.7 [facility] Comment on above: Order Comment: Speci men Type: BLOOD SPECIMENOrdering Facility: [facility] Address: [address] [place] [address] Result Comment: A re sult of > 20 ng/mL is not necessarily indicative of a pathologic or treatable condition: it reflects a limitation of the test methodology. Assay reference range: 4.8 to 24.2 ng/mL. Suitable for detection of folate deficiency. Reference: Folate III (Folate III) [package insert V 1.0 [place]]. [facility], [place], [place]: April 2015. Performed By: #### 2 885-2, 2132-9, 2284-8 ####[facility]CL[facility] [id number] [place] [address] [place] HOMOCYSTEINEon 09-13-2023 Homocysteine [Moles/Vol] 11.3 umol/L <15.1 umol/L [facility] HbA1c (Bld)on 09-13-2023 Average glucose Estimated from glycated hemoglobin (Bld) [Mass/Vol] 103 mg/dL [facility] HbA1c (Bld) [Mass fraction] 5.2 % 4.3 - 5.6 % [facility] Average glucose Estimated from glycated hemoglobin (Bld) [Mass/Vol] 103 mg/dL Normal [facility] Comment on above: Order Comment: Speci men Type: BLOOD SPECIMENOrdering Facility: [facility] Address: [address] [place] [address] Result Comment: eAG: (Estimated average glucose) is a calculated value from HgbA1c and is associate financial representative of the average blood glucose level in the last 2-3 month period. Performed By: #### 5 5454-3 ####[facility] LABIA [id number] [place] [address] [place] HbA1c (Bld) [Mass fraction] 5.2 % Normal 4.3-5.6 [facility] Comment on above: Order Comment: Speci [facility] Type: BLOOD SPECIMENOrdering Facility: [facility] Address: [address] [place] [address] Result Comment: Amer ican Diabetes Association guidelines indicate that patients with HgbA1c in the range 5.7-6.4% are at increased risk for development of diabetes, and intervention by lifestyle modification may be beneficial. HgbA1c greater or equal to 6.5% is considered diagnostic of diabetes. Performed By: #### 5 5454-3 ####[facility] LABIA [id number] [place] [address] [place] Hcys SerPl-sCncon 09-13-2023 Homocysteine [Moles/Vol] 11.3 umol/L Normal <15.1 [facility] Comment on above: Order Comment: Speci [facility] Type: BLOOD SPECIMENOrdering Facility: [facility] Address: [address] [place] [address] Performed By: #### 1 3965-9 ####[facility] LABCLIA [id number] [place] [address] [place] Methylmalonate SerPl-sCncon 09-13-2023 Methylmalonate [Moles/Vol] 0.19 umol/L Normal <=0.40 [facility] Comment on above: Order Comment: Speci [facility] Type: BLOOD SPECIMENOrdering Facility: [facility] Address: [address] [place] [address] Result Comment: This test was developed and its performance characteristics determined by [facility]'s [facility] Pathology and Laboratory Medicine [place] ([facility]). It has not been cleared or approved by the FDA. [facility] is regulated under CLIA as qualified to perform high-complexity testing. This test is used for clinical purposes. It should not be regarded as investigational or for research. Performed By: #### 1 3964-2 ####[facility] LABIA [id number] [place] [address] [place] PROTEIN ELECTROPHORESIS SERU M (P)on 09-13-2023 Albumin [Mass/Vol] 4.07 g/dL Normal 3.43-5.41 [facility] Comment on above: Order Comment: Speci men Type: BLOOD SPECIMENOrdering Facility: [facility] Address: [address] [place] [address] Performed By: #### L [id number] ####[facility] [id number] [place] [address] [place] Alpha 1 globulin Elph [Mass/Vol] 0.37 g/dL Normal 0.18-0.43 [facility] Comment on above: Order Comment: Speci men Type: BLOOD SPECIMENOrdering Facility: [facility] Address: [address] [place] [address] Performed By: #### L [id number] ####[facility] LABIA [id number] [place] [address] [place] Alpha 2 globulin Elph [Mass/Vol] 0.70 g/dL Normal 0.42-0.98 [facility] Comment on above: Order Comment: Speci men Type: BLOOD SPECIMENOrdering Facility: [facility] Address: [address] [place] [address] Performed By: #### L [id number] ####[facility] LABIA [id number] [place] [address] [place] Beta globulin Elph [Mass/Vol] 0.69 g/dL Normal 0.61-1.17 [facility] Comment on above: Order Comment: Speci men Type: BLOOD SPECIMENOrdering Facility: [facility] Address: [address] [place] [address] Performed By: #### L [id number] ####[facility] LABCLIA [id number] [place] [address] [place] Gamma globulin Elph [Mass/Vol] 0.57 g/dL Normal 0.53-1.51 [facility] Comment on above: Order Comment: Speci men Type: BLOOD SPECIMENOrdering Facility: [facility] Address: [address] [place] [address] Performed By: #### L [id number] ####[facility]CL[facility] [id number] [place] [address] [place] M-PROTEIN LOCATION Normal [facility] Comment on above: Order Comment: Speci men Type: BLOOD SPECIMENOrdering Facility: [facility] Address: [address] [place] [address] Result Comment: Not Applicable. Performed By: #### L [id number] ####[facility] LABIA [id number] [place] [address] [place] Protein Fractions [Interp] No definitive M protein is identified on protein electrophoresis. Normal No definitive M protein is identified on protein electrophor esis. [facility] Comment on above: Order Comment: Speci men Type: BLOOD SPECIMENOrdering Facility: [facility] Address: [address] [place] [address] Performed By: #### L [id number] ####[facility] LABIA [id number] [place] [address] [place] Protein.monoclonal Elph [Mass/Vol] 0.00 g/dL Normal <=0.00 [facility] Comment on above: Order Comment: Speci men Type: BLOOD SPECIMENOrdering Facility: [facility] Address: [address] [place] [address] Performed By: #### L [id number] ####[facility] LABIA [id number] [place] [id number] [place] SPE STAFF REVIEW Reviewed by Dr. Lelo Santiago MD [facility] Comment on above: Order Comment: Speci men Type: BLOOD SPECIMENOrdering Facility: [facility] Address: [address] [place] [address] Performed By: #### L [id number] ####[facility] LABIA [id number] [place] [id number] [place] Prot SerPl-mCncon 09-13-2023 Protein [Mass/Vol] 6.4 g/dL Normal 6.3-8.0 [facility] Comment on above: Order Comment: Speci men Type: BLOOD SPECIMENOrdering Facility: [facility] Address: [address] [place] [address] Performed By: #### 2 885-2, 2132-9, 2284-8 ####[facility] [id number] [place] [address] [place] Prot Ur-mCncon 09-13-2023 Protein (U) [Mass/Vol] 6 mg/dL Normal 0-20 [facility] Comment on above: Order Comment: Speci men Type: URINE SPECIMENOrdering Facility: [facility] Address: [address] [place] [address] Performed By: #### 2 888-6 ####[facility] [id number] [place] [id number] [place] TSH BLDon 09-13-2023 TSH Qn 0.911 m[IU]/L 0.270 - 4.200 mIU/L [facility] TSH SerPl-aCncon 09-13-2023 TSH Qn 0.911 m[IU]/L Normal 0.270-4.200 [facility] Comment on above: Order Comment: Speci men Type: BLOOD SPECIMENOrdering Facility: [facility] Address: [address] [place] [address] Performed By: #### 2 4323-8, 3016-3 ####[facility] LABCLIA [id number] [place] [address] [place] URINE PROTEIN ELECTROPHORESI S RANDOM (P)on 09-13-2023 Albumin Elph (U) [Mass fraction] 42.54 % Normal [facility] Comment on above: Order Comment: Speci men Type: URINE SPECIMENOrdering Facility: [facility] Address: [address] [place] [address] Performed By: #### L [id number] ####[facility] LABIA [id number] [place] [address] [place] Alpha 1 globulin Elph (U) [Mass fraction] 5.38 % Normal [facility] Comment on above: Order Comment: Speci men Type: URINE SPECIMENOrdering Facility: [facility] Address: [address] [place] [address] Performed By: #### L [id number] ####[facility] LABCLIA [id number] [place] [address] [place] Alpha 2 globulin Elph (U) [Mass fraction] 16.91 % Normal [facility] Comment on above: Order Comment: Speci men Type: URINE SPECIMENOrdering Facility: [facility] Address: [address] [place] [address] Performed By: #### L [id number] ####[facility] LABCLIA [id number] [place] [address] [place] Beta globulin Elph (U) [Mass fraction] 24.59 % Normal [facility] Comment on above: Order Comment: Speci men Type: URINE SPECIMENOrdering Facility: [facility] Address: [address] [place] [address] Performed By: #### L [id number] ####[facility] LABCLIA [id number] [place] [address] [place] Gamma globulin Elph (U) [Mass fraction] 10.58 % Normal [facility] Comment on above: Order Comment: Speci men Type: URINE SPECIMENOrdering Facility: [facility] Address: [address] [place] [address] Performed By: #### L [id number] ####[facility] [id number] [address] [place] INTERPRETATION COMMENT FOR PROTEIN ELECTROPHORESIS The absence of M-protein on urine protein electrophoresis does not entirely exclude the presence of monoclonal gammopathy in urine. Monoclonal protein analysis (immunofixation), a more definitive test to exclude monoclonal gammopathy, may be requested on this specimen if clinically indicated. Normal [facility] Comment on above: Order Comment: Speci men Type: URINE SPECIMENOrdering Facility: [facility] Address: [address] [place] [address] Performed By: #### L [id number] ####[facility] [id number] [place] [address] [place] Protein Fractions Elph Brandt (U) [Interp] No definitive M protein is identified on protein electrophoresis. Normal No definitive M protein is identified on protein electrophor esis. [facility] Comment on above: Order Comment: Speci men Type: URINE SPECIMENOrdering Facility: [facility] Address: [address] [place] [address] Performed By: #### L [id number] ####[facility] LABIA [id number] [address] [place] STAFF REVIEW (URINE ELECTRO) Reviewed by Dr. Azeem Santiago MD Normal [facility] Comment on above: Order Comment: Speci men Type: URINE SPECIMENOrdering Facility: [facility] Address: [address] [place] [address] Performed By: #### L [id number] ####[facility] LABIA [id number] [address] [address] [place] VITAMIN B12 BLOODon 09-13-19 24 Cobalamin (Vitamin B12) [Mass/Vol] 939 pg/mL 232 - 1,245 pg/mL [facility] Vit B12 SerPl-mCncon 024 Cobalamin (Vitamin B12) [Mass/Vol] 939 pg/mL Normal 232-1245 [facility] Comment on above: Order Comment: Speci men Type: BLOOD SPECIMENOrdering Facility: [facility] Address: [address] [place] [address] Performed By: #### 2 885-2, 2132-9, 2284-8 ####[facility] LABCL[facility] [id number] [place] [id number] [place] Orders Onlyon 09-11-2023 Orders Only [id number] Donato Land 1945 F Date Provider Department Center 09/11/2023 VERENA TANNER [facility] Family History Problem Relation Age of Onset Stroke Mother Stroke Brother Other Mother's Sister Coronary artery disease Mother's Sister Stroke Maternal Grandmother Family Status - Relation Status Age at Mother Brother Mother's Sister Maternal Grandmother [facility] [id number] 09-10-2023 [id number] PT HOLDING ASPIRIN P ER DR HUTSON ON 09/09 MEDICATIONS TO TAKE DAY OF SURGERY WITH SIP OF WATER XANAX AMLODIPINE GABAPENTIN ISOSORBIDE PROTONIX PT DAUGHTER AGREES TO TAKE PT TO [facility] FOR LABS ON 09/10 LAB ORDERS FAXED TO [phone] HOLD VITAMINS AND SUPPLEMENTS 5 DAYS PRIOR TO PROCEDURE HOLD ALL ANTI INFLAMMATORIES ETC:MOTRIN, ADVIL, ALEVE, FOR 5 DAYS PRIOR TO PROCEDURE IF YOU ARE GOING HOME AFTER YOUR SURGERY OR PROCEDURE, FOR YOUR SAFETY, YOUR SURGERY WILL BE CANCELLED IF BOTH OF THE FOLLOWING ARE NOT AVAILABLE: An adult new car driver over the age of 18, 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 Do not wear perfume, make-up, nail yi, or lotions on the day of your [...] need to make any changes, please call [phone]. Notify your surgeon if you develop any illness such as a cold, cough, fever, sore throat or vomiting between now and your surgery. Thank you for entrusting us with your care. [facility] Surgical Services Team [facility] Telephoneon 09-10-2023 Telephone [id number] Donato Land 1945 F Date Provider Department Center 09/10/2023 KERWIN ABDI [facility] [place] Family History Problem Relation Age of Onset Stroke Mother Stroke Brother Other Mother's Sister Coronary artery disease Mother's Sister Stroke Maternal Grandmother Family Status - Relation Status Age at Mother Brother Mother's Sister Maternal Grandmother Reason for Visit and Comments: telephone [Other] [facility] Documentationon 08-27-2023 Documentation [id number] Donato Land 1945 F Date Provider Department Center 08/27/2023 COOPER SORIA [facility] Family History Problem Relation Age of Onset Stroke Mother Stroke Brother Other Mother's Sister Coronary artery disease Mother's Sister Stroke Maternal Grandmother Family Status - Relation Status Age at Mother Brother Mother's Sister Maternal Grandmother [facility] HPon 08-22-2023 HP Subjective Patient ID: Judith Land is a 78 y.o. female who presents [...] and oriented to person, place, and time. (ESOPHAGOGASTRODUODENOSCOP Y) Operative Note Date: 08/13/2023 Location: [facility] OR Name: Judith Land, : 1945, Diagnosis Pre-op Diagnosis * Hiatal hernia [K44.9] Post-op Diagnosis * Chronic gastric ulcer without hemorrhage and without perforation [K25.7] Procedures EGD (ESOPHAGOGASTRODUODENOSCOP Y) 12095 - [place] ESOPHAGOGASTRODUODENOSCOPY [facility] Surgeons * Verena Hutson - Primary Procedure Summary Anesthesia: Monitor Anesthesia Care ASA: III Estimated Blood Loss: Minimal Total IV Fluids: 500 mL Drains: * None in log * Staff: Room Service Server: Jian Kat RN Scrub Person: Eva Zambrano CST Indications: Judith Land is an 78 y.o. female who is [...] sequential compression devices EGD NOTE Patient: Judith Land : 1945 Facility: [facility] Referring/PCP: Kavon Sams MD Procedure: Esophagogastroduodenoscopy --diagnostic Date: 08/13/2023 Endoscopist: Verena Hutson MD, MD Preoperative Diagnosis: 1. Hiatal hernia [...] 1. -Follow up with me. 2. -PPIs [phone] pager [phone] Assessment/Plan Incisional hernia Gastric ulcer Robotic incisional hernia repair with mesh Cardiac clearance PPIs No diagnosis found. No orders of the defined types were placed in this encounter. No results found for this or any previous visit (from the past 36 hour(s)). No follow-ups on file. [facility] Office Visiton 08-22-2023 Follow-up visit [id number] Donato Land Susan 1945 F Date Provider Department Center 08/22/2023 454-VERENA HUTSON [facility] [place] Family History Problem Relation Age of Onset Stroke Mother Stroke Brother Other Mother's Sister Coronary artery disease Mother's Sister Stroke Maternal Grandmother Family Status - Relation Status Age at Mother Brother Mother's Sister Maternal Grandmother Level of Service:86707 [place] OFFICE/OUTPATIENT ESTABLISHED MOD MDM 30 MIN Reason for Visit and Comments: Post-op [483] - Judith is here today for a post op visit for a hiatal hernia, s/p 08/13/[address] [facility] CHEMISTRYOrdered By: SYSTEM SYSTEM on 07-16-2023 Troponin [...] Sensitivity Troponin I Instructions For Use, Jacques Vesper, January 2018) Anion gap [Moles/Vol] 14 mmol/L [...] Normal 80.0 - 100.0 fL Remisol Heme [place] Absolute 1.2 E9/L High 0.2 - 1.0 [...] [Mass/Vol] Negative (07/16/23 12:49 PM) Normal Negative [facility] Auto SS Zinc.plasma/Zinc .RBC (Bld) [Mass ratio] 0-3 /HPF Normal 0-3/HPF [...] Desc Clean Catch (07/16/23 12:49 PM) Normal [facility] UA Auto SS Urobilinogen Qn (U) 0.3160351 {Phoebe'U}/dL Normal 0.0 - 1.0 EU/dL [facility] UA Auto SS WBC Auto Ql (U) 1+ *ABN* (07/16/23 12:49 PM) Invalid Interpretation Code Negative [facility] UA Auto SS WBC LM.HPF (Urine sed) [#/Area] 0-5 /HPF Normal 0-5/HPF [facility] UA Auto SS CHEMISTRYOrdered By: SYSTEM SYSTEM on 06-23-2023 Troponin 187.00 pg/mL Invalid Interpretation Code 10.10 - 27.10 pg/mL Remisol Chem Comment on above: Result Comment: Crit ical Result Verified by Previous Result Critical Result I_TnIHS:187.0 Called to and read back by: ANGEL RESTREPO at: 06/23/2023 12:10:53 by:SYDNI Interpretive Data: T he 95% CI (Confidence Interval) PPV (Positive Predictive Value) for myocardial infarction in females is 38 pg/mL, in males 51 pg/mL. The results should be used in conjunction with clinical conditions of myocardial infarction. (Access High Sensitivity Troponin I Instructions For Use, Jacques Ceci, January 2018) Troponin 183.20 pg/mL Invalid Interpretation Code 10.10 - 27.10 pg/mL Remisol Chem Comment on above: Result Comment: Crit ical Result Verified by Previous Result Critical Result I_TnIHS:183.2 Called to and read back by: JAIMEE MUNSON at: 06/23/2023 09:12:46 by:SYDNI Interpretive Data: T he 95% CI (Confidence Interval) PPV (Positive Predictive Value) for myocardial infarction in females is 38 pg/mL, in males 51 pg/mL. The results should be used in conjunction with clinical conditions of myocardial infarction. (Access High Sensitivity Troponin I Instructions For Use, [employer] January 2018) Troponin 116.80 pg/mL Invalid Interpretation Code 10.10 - 27.10 pg/mL Remisol Chem Comment on above: Result Comment: Crit ical Result Verified by Repeat Analysis Critical Result I_TnIHS:116.8 Called to and read back by: ROD YU at: 06/23/2023 06:19:20 by:CMK Interpretive Data: T he 95% CI (Confidence Interval) PPV (Positive Predictive Value) for myocardial infarction in females is 38 pg/mL, in males 51 pg/mL. The results should be used in conjunction with clinical conditions of myocardial infarction. ([employer] High Sensitivity Troponin I Instructions For Use, [employer] January 2018) Lactic Acid Lvl 1.1 mmol/L [...] 96 mg/dL Normal 55 - 99 mg/dL [facility] POC Subsection Comment on above: Result Comment: Bonnie jamil RN/ POC Device SN [id number] 1 Invalid Interpretation Code [facility] POC Subsection POC User ID [id number] 1 Invalid Interpretation Code [facility] POC Subsection POC Username JOSH GERONIMO Invalid Interpretation Code [facility] POC Subsection COAGULATIONOrdered By: Hoang Chris on 06-23-2023 aPTT Coag (PPP) [Time] 30.4 s Normal 25.1 - 36.5 second(s) [facility] Auto Coag Comment on [...] the same coagulation reagent and instrumentation as [facility]. Currently there are no coagulation studies available worldwide for children to 14 days, and no normal ranges. Heparin therapeutic range (represented by Anti-Factor Xa activity of 0.2 - 0.4 U/mL) corresponds to PTT of 56.6 - 109.0 sec. INR Coag (PPP) [Relative time] 1.0 {INR} Invalid Interpretation Code [facility] Auto Coag Comment on above: Interpretive Data: I NR results are specifically intended to assess patients stabilized on long-term Anticoagulation therapy suggested INR s Less Intensive Anticoagulation 2.0 3.0 Conventional Range 3.0 4.5 PT Coag (PPP) [Time] 11.7 s Normal 9.4 - 1 2.5 second(s) [facility] Auto Coag Comment on [...] the same coagulation reagent and instrumentation as [facility]. Currently there are no [...] Normal 0.0 - 8.0 % [facility] HemeAutoSS Eosinophils/Leukocytes Auto (Bld) [Pure # fraction] 0.1 E9/L Normal 0.0 - 0.5 E9/L [facility] HemeAutoSS Lymphocytes/100 WBC (Bld) 15.1 % Normal 14.0 - 50.0 % [facility] HemeAutoSS Lymphocytes/Leukocytes Auto (Bld) [Pure # fraction] 2.2 E9/L Normal 1.0 - 4.0 E9/L [facility] HemeAutoSS Monocytes/100 WBC (Bld) 11.3 % Normal 4.0 - 14.0 % [facility] HemeAutoSS Monocytes/Leukocytes Auto (Bld) [Pure # fraction] 1.6 E9/L High 0.2 - 1.0 E9/L [facility] HemeAutoSS Neutrophils/100 WBC (Bld) 72.4 % Normal 36.0 - 75.0 % [facility] HemeAutoSS Neutrophils/Leukocytes Auto (Bld) [Pure # fraction] 10.5 E9/L [...] NEG Ctl Pass (06/23/23 2:12 AM) Normal [facility] Man Sero Rapid COV Int POS Ctl Pass (06/23/23 2:12 AM) Normal [facility] Man Sero SARS-CoV+SARS-CoV-2 (COVID-19) Ag IA.rapid Ql (Resp) Not Detected 11 (06/23/23 2:12 AM) Normal Not Detected [facility] Man Sero Comment on above: Interpretive Data: Bob melendez [employer] Veritor System for Rapid Detection of SARS-CoV-2 [...] AM) Normal Negative [facility] UA Auto SS Zinc.plasma/Zinc .RBC (Bld) [Mass ratio] 0-3 /HPF Normal 0-3/HPF [...] AM) Invalid Interpretation Code 1.005 - 1.030 [facility] UA Auto SS UA Spec Desc Clean Catch (06/23/23 3:01 AM) Normal [facility] UA Auto SS Urobilinogen Qn (U) [id number] {Phoebe'U}/dL Normal 0.0 - 1.0 EU/dL [facility] UA Auto SS WBC Auto Ql (U) 1+ *ABN* (06/23/23 3:01 AM) Invalid Interpretation Code Negative [facility] UA Auto SS WBC LM.HPF (Urine sed) [#/Area] 6-15 /HPF Invalid Interpretation Code 0-5/HPF [facility] UA Auto SS Creatinine (Bld) [Mass/Vol]O rdered By: Cathie Gill on 05-15-2023 Creatinine [Mass/Vol] 1.0 mg/dL 0.6-1.3 [facility] Comment on above: ER/ESD physician is notified/shown all ISTAT results.Critical values may be confirmed by laboratory testing ifdeemed necessary by ER attending doctor. No Panel InformationOrdered By: Cathie Gill on 05-15-2023 Bedside Estimated GFR (eGFR) 58.023 [facility] BNPon 10-09-2022 Natriuretic peptide B (Bld) [Mass/Vol] 90.0 pg/mL Normal <=1,800.0 [facility] Comment on above: Performed By: #### M G, CMP, TSH, T7, BNP #### [facility] [address] [address] [address] Glenys Holly CBC AUTO DIFFon 10-09-2022 BASO # 0.1 103/ul Normal 0.0-0.1 [facility] Comment on above: Performed By: #### M G, CMP, TSH, T7, BNP #### [facility] [address], [place] [address] Dr. Glenys Holly Basophils/100 WBC (Bld) 1.0 % Normal 0.2-2.0 [facility] Comment on above: Performed By: #### M G, CMP, TSH, T7, BNP #### [facility] [address] [address] [address] Glenys Holly EO # 0.5 103/ul Normal 0.0-0.7 [facility] Comment on above: Performed By: #### M G, CMP, TSH, T7, BNP #### [facility] [address] [place] [address] Dr. Glenys Holly Eosinophils/100 WBC (Bld) 6.4 % Normal 0.9-7.0 [facility] Comment on above: Performed By: #### M G, CMP, TSH, T7, BNP #### [facility] [address] [place] [address] Dr. Glenys Holly Erythrocyte distribution width (RBC) [Ratio] 15.4 % Critically high 11.0-15.0 [facility] Comment on above: Performed By: #### M G, CMP, TSH, T7, BNP #### [facility] [address] [place] [address] Dr. Glenys Holly Hematocrit (Bld) [Volume fraction] 42.8 % Normal 36.0-48.0 [facility] Comment on above: Performed By: #### M G, CMP, TSH, T7, BNP #### [facility] [address] [place] [address] Dr. Glenys Holly Hemoglobin (Bld) [Mass/Vol] 14.1 g/dL Normal 12.0-16.0 [facility] Comment on above: Performed By: #### M G, CMP, TSH, T7, BNP #### [facility] [address] [place] [address] Dr. Glenys Holly IG # 0.01 10e3/ul Normal 0.00-0.03 [facility] Comment on above: Performed By: #### M G, CMP, TSH, T7, BNP #### [facility] [address] [place] [address] Dr. Glenys Holly IG % 0.1 % Normal 0.0-0.5 [facility] Comment on above: Performed By: #### M G, CMP, TSH, T7, BNP #### [facility] [address] [place] [address] Dr. Glenys Holly LYMPH # 3.3 103/ul Normal 1.2-3.8 [facility] Comment on above: Performed By: #### M G, CMP, TSH, T7, BNP #### [facility] [address] [place] [address] Dr. Glenys Holly Lymphocytes/100 WBC (Bld) 44.2 % Normal 20.5-60.0 [facility] Comment on above: Performed By: #### M G, CMP, TSH, T7, BNP #### [facility] [address] [place] [address] Dr. Glenys Holly MANUAL DIFF REQ NO Normal [facility] Comment on above: Performed By: #### M G, CMP, TSH, T7, BNP #### [facility] [address] [place] [address] Dr. Glenys Holly MCH (RBC) [Entitic mass] 30.3 pg Normal 26.7-34.0 [facility] Comment on above: Performed By: #### M G, CMP, TSH, T7, BNP #### [facility] [address] [place] [address] Dr. Glenys Holly MCHC (RBC) [Mass/Vol] 32.9 g/dL Normal 29.9-35.2 [facility] Comment on above: Performed By: #### M G, CMP, TSH, T7, BNP #### [facility] [address] [place] [address] Dr. Glenys Holly MCV (RBC) [Entitic vol] 92.0 fL Normal 81.0-99.0 [facility] Comment on above: Performed By: #### M G, CMP, TSH, T7, BNP #### [facility] [address] [place] [address] Dr. Glenys Holly MONO # 1.2 103/ul Critically high 0.3-0.8 [facility] Comment on above: Performed By: #### M G, CMP, TSH, T7, BNP #### [facility] [address] [place] [address] Dr. Glenys Holly Monocytes/100 WBC (Bld) 16.4 % Critically high 1.7-12.0 [facility] Comment on above: Performed By: #### M G, CMP, TSH, T7, BNP #### [facility] [address] [place] [address] Dr. Glenys Holly NEUT # 2.4 103/ul Normal 1.4-6.5 [facility] Comment on above: Performed By: #### M G, CMP, TSH, T7, BNP #### [facility] [address] [place] [address] Dr. Glenys Holly Neutrophils/100 WBC (Bld) 31.9 % Critically low 43.0-75.0 [facility] Comment on above: Performed By: #### M G, CMP, TSH, T7, BNP #### [facility] [address] [place] [address] Dr. Glenys Holly Platelet mean volume (Bld) [Entitic vol] 10.3 fL Normal 9.5-13.5 [facility] Comment on above: Performed By: #### M G, CMP, TSH, T7, BNP #### [facility] [address] [place] [address] Dr. Glenys Holly PLT 379 103/ul Normal 150-450 [facility] Comment on above: Performed By: #### M G, CMP, TSH, T7, BNP #### [facility] [address] [place] [address] Dr. Glenys Holly RBC 4.65 106/ul Normal 4.20-5.40 [facility] Comment on above: Performed By: #### M G, CMP, TSH, T7, BNP #### [facility] [address] [place] [address] Dr. Glenys Holly WBC 7.4 103/ul Normal 4.0-11.0 [facility] Comment on above: Performed By: #### M G, CMP, TSH, T7, BNP #### [facility] [address] [place] [address] Dr. Glenys Holly FERRITINon 10-09-2022 Ferritin [Mass/Vol] 68.0 ng/mL Normal 8.0-252.0 [facility] Comment on above: Performed By: #### F ERR, IRON, VITAD ####[facility] [address] [address]Dr. Glenys Holly FREE THYROXINE INDEX T7on FTI 3.10 Normal 1.30-4.50 [facility] Comment on above: Performed By: #### M G, CMP, TSH, T7, BNP #### [facility] [address] [address] [address] Glenys Holly T3U 36.0 % Normal 30.0-39.0 [facility] Comment on above: Performed By: #### M G, CMP, TSH, T7, BNP #### [facility] [address] [address] [address] Glenys Holly T4 [Mass/Vol] 8.60 ug/dL Normal 4.80-13.90 [facility] Comment on above: Performed By: #### M G, CMP, TSH, T7, BNP #### [facility] [address] [place] [address] Dr. Glenys Holly IRONon 10-09-2022 Iron [Mass/Vol] 52.0 ug/dL Normal 50.0-170.0 [facility] Comment on above: Performed By: #### F ERR, IRON, VITAD ####[facility] [address] [address]Dr. Glenys Holly MAGNESIUMon 10-09-2022 Magnesium [Mass/Vol] 2.0 mg/dL Normal 1.8-2.4 [facility] Comment on above: Performed By: #### M G, CMP, TSH, T7, BNP #### [facility] [address] [place] [address] Dr. Glenys Holly PROF 14(COMP METB)on 023 Albumin [Mass/Vol] 3.5 g/dL Normal 3.4-5.0 [facility] Comment on above: Performed By: #### M G, CMP, TSH, T7, BNP #### [facility] [address] [place] [address] Dr. Glenys Holly Albumin/Globulin [Mass ratio] 1.0 {ratio} Normal [facility] Comment on above: Performed By: #### M G, CMP, TSH, T7, BNP #### [facility] [address] [place] [address] Dr. Glenys Holly ALP [Catalytic activity/Vol] 134 U/L Critically high 46-116 [facility] Comment on above: Performed By: #### M G, CMP, TSH, T7, BNP #### [facility] [address] [place] [address] Dr. Glenys Holly ALT [Catalytic activity/Vol] 34 U/L Normal 14-59 [facility] Comment on above: Performed By: #### M G, CMP, TSH, T7, BNP #### [facility] [address] [place] [address] Dr. Glenys Holly Anion gap [Moles/Vol] 8.8 mmol/L Normal [facility] Comment on above: Performed By: #### M G, CMP, TSH, T7, BNP #### [facility] [address] [place] [address] Dr. Glenys Holly AST [Catalytic activity/Vol] 19 U/L Normal 15-37 [facility] Comment on above: Performed By: #### M G, CMP, TSH, T7, BNP #### [facility] [address] [place] [address] Dr. Glenys Holly Bilirubin [Mass/Vol] 0.2 mg/dL Normal 0.2-1.0 [facility] Comment on above: Performed By: #### M G, CMP, TSH, T7, BNP #### [facility] [address] [place] [address] Dr. Glenys Holly Calcium [Mass/Vol] 10.6 mg/dL Critically high 8.5-10.1 [facility] Comment on above: Performed By: #### M G, CMP, TSH, T7, BNP #### [facility] [address] [place] [address] Dr. Glenys Holly Chloride [Moles/Vol] 105 mmol/L Normal 98-107 [facility] Comment on above: Performed By: #### M G, CMP, TSH, T7, BNP #### [facility] [address] [place] [address] Dr. Glenys Holly CO2 [Moles/Vol] 30.0 mmol/L Normal 21.0-32.0 [facility] Comment on above: Performed By: #### M G, CMP, TSH, T7, BNP #### [facility] [address] [address] [address] Glenys Holly Creatinine [Mass/Vol] 0.86 mg/dL Normal 0.55-1.02 [facility] Comment on above: Performed By: #### M G, CMP, TSH, T7, BNP #### [facility] [address] [address] [address] Glenys Holly EGFR-AF FAROESE >60 Normal >=60 [facility] Comment on above: Performed By: #### M G, CMP, TSH, T7, BNP #### [facility] [address] [address] [address] Glenys Holly EGFR-NON AF FAROESE >60 Normal >=60 [facility] Comment on above: Performed By: #### M G, CMP, TSH, T7, BNP #### [facility] [address] [address] [address] Glenys Holly Globulin (S) [Mass/Vol] 3.5 g/dL Normal [facility] Comment on above: Performed By: #### M G, CMP, TSH, T7, BNP #### [facility] [address] [place] [address] Dr. Glenys Holly Glucose [Mass/Vol] 99 mg/dL Normal 74-106 [facility] Comment on above: Performed By: #### M G, CMP, TSH, T7, BNP #### [facility] [address] [address] [address] Glenys Holly Potassium [Moles/Vol] 3.8 mmol/L Normal 3.5-5.1 [facility] Comment on above: Performed By: #### M G, CMP, TSH, T7, BNP #### [facility] [address] [address] [address] Glenys Holly Protein [Mass/Vol] 7.0 g/dL Normal 6.4-8.2 [facility] Comment on above: Performed By: #### M G, CMP, TSH, T7, BNP #### [facility] [address] [address] [address] Glenys Holly Sodium [Moles/Vol] 140 mmol/L Normal 136-145 [facility] Comment on above: Performed By: #### M G, CMP, TSH, T7, BNP #### [facility] [address] [address] [address] Glenys Holly Urea nitrogen [Mass/Vol] 25.0 mg/dL Critically high 7.0-18.0 [facility] Comment on above: Performed By: #### M G, CMP, TSH, T7, BNP #### [facility] [address] [address] [address] Glenys Holly Urea nitrogen/Creatinine [Mass ratio] 29.1 mg/mg Normal [facility] Comment on above: Performed By: #### M G, CMP, TSH, T7, BNP #### [facility] [address] [address] [address] Glenys Holly TSHon 10-09-2022 TSH 1.720 uIU/mL Normal 0.358-3.740 [facility] Comment on above: Performed By: #### M G, CMP, TSH, T7, BNP #### [facility] [address] [address] [address] Glenys Holly VITAMIN D 25 OHon 10-09-2022 VIT D 25-OH 89.3 ng/mL Normal [facility] Comment on above: Performed By: #### F ERR, IRON, VITAD ####[facility] [address] [address]Dr. Glenys Holly VIT D RANGES SEE BELOW Normal [facility] Comment on above: Result Comment: <20 ng/mL Vit D deficient 20 - <30 ng/mL Vit D insufficient 30 - 100 ng/mL Vit D sufficient >100 ng/mL Potential Toxicity Performed By: #### F ERR, IRON, VITAD ####[facility] [address] [address]Dr. Glenys Holly NM STRESS/REST MULTIon 1214 2022 NM STRESS/REST MULTI Patient: Shana ALND Exam Date: 05/24/2022 : 1945 Gender:F Ordering : DR KAVON SAMS . Admission #: [id number] Family : Order #: [id number] CLICK HERE TO VIEW EXAM RADIOLOGY REPORT [...] M.D. on 05/24/2022 at 16:02 Normal [facility] BNPon 05-10-2022 Natriuretic peptide B (Bld) [Mass/Vol] 1305.0 pg/mL Normal <=1,800.0 [facility] Comment on above: Performed By: #### M G, CMP, TSH, T7, BNP #### [facility] [address] [place] [address] Dr. Glenys Holly CBC AUTO DIFFon 05-10-2022 BASO # 0.0 103/ul Normal 0.0-0.1 [facility] Comment on above: Performed By: #### M G, CMP, TSH, T7, BNP #### [facility] [address] [place] [address] Dr. Glenys Holly Basophils/100 WBC (Bld) 0.3 % Normal 0.2-2.0 [facility] Comment on above: Performed By: #### M G, CMP, TSH, T7, BNP #### [facility] [address] [place] [address] Dr. Glenys Holly EO # 0.0 103/ul Normal 0.0-0.7 [facility] Comment on above: Performed By: #### M G, CMP, TSH, T7, BNP #### [facility] [address] [place] [address] Dr. Glenys Holly Eosinophils/100 WBC (Bld) 0.1 % Critically low 0.9-7.0 [facility] Comment on above: Performed By: #### M G, CMP, TSH, T7, BNP #### [facility] [address] [place] [address] Dr. Glenys Holly Erythrocyte distribution width (RBC) [Ratio] 15.1 % Critically high 11.0-15.0 [facility] Comment on above: Performed By: #### M G, CMP, TSH, T7, BNP #### [facility] [address] [place] [address] Dr. Glenys Holly Hematocrit (Bld) [Volume fraction] 42.9 % Normal 36.0-48.0 [facility] Comment on above: Performed By: #### M G, CMP, TSH, T7, BNP #### [facility] [address] [place] [address] Dr. Glenys Holly Hemoglobin (Bld) [Mass/Vol] 14.6 g/dL Normal 12.0-16.0 [facility] Comment on above: Performed By: #### M G, CMP, TSH, T7, BNP #### [facility] [address] [place] [address] Dr. Glenys Holly IG # 0.05 10e3/ul Critically high 0.00-0.03 [facility] Comment on above: Performed By: #### M G, CMP, TSH, T7, BNP #### [facility] [address] [place] [address] Dr. Glenys Holly IG % 0.7 % Critically high 0.0-0.5 [facility] Comment on above: Performed By: #### M G, CMP, TSH, T7, BNP #### [facility] [address] [place] [address] Dr. Glenys Holly LYMPH # 1.6 103/ul Normal 1.2-3.8 [facility] Comment on above: Performed By: #### M G, CMP, TSH, T7, BNP #### [facility] [address] [place] [address] Dr. Glenys Holly Lymphocytes/100 WBC (Bld) 20.4 % Critically low 20.5-60.0 [facility] Comment on above: Performed By: #### M G, CMP, TSH, T7, BNP #### [facility] [address] [place] [address] Dr. Glenys Holly MANUAL DIFF REQ NO Normal [facility] Comment on above: Performed By: #### M G, CMP, TSH, T7, BNP #### [facility] [address] [place] [address] Dr. Glenys Holly MCH (RBC) [Entitic mass] 29.9 pg Normal 26.7-34.0 [facility] Comment on above: Performed By: #### M G, CMP, TSH, T7, BNP #### [facility] [address] [place] [address] Dr. Glenys Holly MCHC (RBC) [Mass/Vol] 34.0 g/dL Normal 29.9-35.2 [facility] Comment on above: Performed By: #### M G, CMP, TSH, T7, BNP #### [facility] [address] [place] [address] Dr. Glenys Holly MCV (RBC) [Entitic vol] 87.9 fL Normal 81.0-99.0 [facility] Comment on above: Performed By: #### M G, CMP, TSH, T7, BNP #### [facility] [address] [place] [address] Dr. Glenys Holly MONO # 0.7 103/ul Normal 0.3-0.8 [facility] Comment on above: Performed By: #### M G, CMP, TSH, T7, BNP #### [facility] [address] [place] [address] Dr. Glenys Holly Monocytes/100 WBC (Bld) 9.5 % Normal 1.7-12.0 [facility] Comment on above: Performed By: #### M G, CMP, TSH, T7, BNP #### [facility] [address] [place] [address] Dr. Glenys Holly NEUT # 5.2 103/ul Normal 1.4-6.5 [facility] Comment on above: Performed By: #### M G, CMP, TSH, T7, BNP #### [facility] [address] [place] [address] Dr. Glenys Holly Neutrophils/100 WBC (Bld) 69.0 % Normal 43.0-75.0 [facility] Comment on above: Performed By: #### M G, CMP, TSH, T7, BNP #### [facility] [address] [place] [address] Dr. Glenys Holly Platelet mean volume (Bld) [Entitic vol] 11.2 fL Normal 9.5-13.5 [facility] Comment on above: Performed By: #### M G, CMP, TSH, T7, BNP #### [facility] [address] [place] [address] Dr. Glenys Holly PLT 349 103/ul Normal 150-450 [facility] Comment on above: Performed By: #### M G, CMP, TSH, T7, BNP #### [facility] [address] [place] [address] Dr. Glenys Holly RBC 4.88 106/ul Normal 4.20-5.40 [facility] Comment on above: Performed By: #### M G, CMP, TSH, T7, BNP #### [facility] [address] [place] [address] Dr. Glenys Holly WBC 7.6 103/ul Normal 4.0-11.0 [facility] Comment on above: Performed By: #### M G, CMP, TSH, T7, BNP #### [facility] [address] [address] [address] Glenys Holly PROF 14(COMP METB)on 022 Albumin [Mass/Vol] 3.3 g/dL Critically low 3.4-5.0 [facility] Comment on above: Performed By: #### H STROPN, BNP, CMP ####[facility] [address] [address]DrRatna Holly Albumin/Globulin [Mass ratio] 1.1 {ratio} Normal [facility] Comment on above: Performed By: #### H STROPN, BNP, CMP ####[facility] [address] [address]DrRatna Holly ALP [Catalytic activity/Vol] 78 U/L Normal 46-116 [facility] Comment on above: Performed By: #### H STROPN, BNP, CMP ####[facility] [address] [address]DrRatna Holly ALT [Catalytic activity/Vol] 10 U/L Critically low 14-59 [facility] Comment on above: Performed By: #### H STROPN, BNP, CMP ####[facility] [address] [address]DrRatna Holly Anion gap [Moles/Vol] 11.2 mmol/L Normal [facility] Comment on above: Performed By: #### H STROPN, BNP, CMP ####[facility] [address] [address]DrRatna Holly AST [Catalytic activity/Vol] 15 U/L Normal 15-37 [facility] Comment on above: Performed By: #### H STROPN, BNP, CMP ####[facility] [address] [address]DrRatna Holly Bilirubin [Mass/Vol] 0.4 mg/dL Normal 0.2-1.0 [facility] Comment on above: Performed By: #### H STROPN, BNP, CMP ####[facility] [address] [address]Dr. Glenys Holly Calcium [Mass/Vol] 8.9 mg/dL Normal 8.5-10.1 [facility] Comment on above: Performed By: #### H STROPN, BNP, CMP ####[facility] [address] [address]Dr. Glenys Holly Chloride [Moles/Vol] 98 mmol/L Normal 98-107 [facility] Comment on above: Performed By: #### H STROPN, BNP, CMP ####[facility] [address] [address]Dr. Glenys Holly CO2 [Moles/Vol] 31.1 mmol/L Normal 21.0-32.0 [facility] Comment on above: Performed By: #### H STROPN, BNP, CMP ####[facility] [address] [place], [place] [address]Dr. Glenys Holly Creatinine [Mass/Vol] 1.15 mg/dL Critically high 0.55-1.02 [facility] Comment on above: Performed By: #### H STROPN, BNP, CMP ####[facility] [address] [place], [place] [address]Dr. Glenys Holly EGFR-AF FAROESE 56 mL/min/1.73m2 Critically low >=60 [facility] Comment on above: Performed By: #### H STROPN, BNP, CMP ####[facility] [address] [place], [place] [address]Dr. Glenys Holly EGFR-NON AF FAROESE 46 mL/min/1.73m2 Critically low >=60 [facility] Comment on above: Performed By: #### H STROPN, BNP, CMP ####[facility] [address] [address]Dr. Glenys Holly Globulin (S) [Mass/Vol] 3.0 g/dL Normal [facility] Comment on above: Performed By: #### H STROPN, BNP, CMP ####[facility] [address] [id number][address] Glenys Holly Glucose [Mass/Vol] 107 mg/dL Critically high 74-106 T [facility] Comment on above: Performed By: #### H STROPN, BNP, CMP ####[facility] [address] [address]Dr. Glenys Holly Potassium [Moles/Vol] 3.3 mmol/L Critically low 3.5-5.1 [facility] Comment on above: Performed By: #### H STROPN, BNP, CMP ####[facility] [address] [address]Dr. Glenys Holly Protein [Mass/Vol] 6.3 g/dL Critically low 6.4-8.2 [facility] Comment on above: Performed By: #### H STROPN, BNP, CMP ####[facility] [address] [address]Dr. Glenys Holly Sodium [Moles/Vol] 137 mmol/L Normal 136-145 [facility] Comment on above: Performed By: #### H STROPN, BNP, CMP ####[facility] [address] [address]Dr. Glenys Holly Urea nitrogen [Mass/Vol] 29.0 mg/dL Critically high 7.0-18.0 [facility] Comment on above: Performed By: #### H STROPN, BNP, CMP ####[facility] [address] [address]Dr. Glenys Holly Urea nitrogen/Creatinine [Mass ratio] 25.2 mg/mg Normal [facility] Comment on above: Performed By: #### H STROPN, BNP, CMP ####[facility] [address] [address]Dr. Glenys Holly TROPONIN, HIGH SENSITIVITYon 05-10-2022 HSTROP 50.5 pg/mL Normal 4.0-51.3 [facility] Comment on above: Result Comment: CUT- OFF POINTS HAVE BEEN ESTABLISHED BASED ON THE FOURTH UNIVERSAL DEFINITIONS OF MYOCARDIAL INFARCTION. THE UPPER REFERENCE LIMIT (URL) OF TROPONIN, DEFINED THE 99TH PERCENTILE OF cTnI DISTRIBUTION IN A REFERENCE POPULATION, HAS BEEN CONFIRMED THE DECISION THRESHOLD FOR [place] DIAGNOSIS. Performed By: #### H STROPN, BNP, CMP ####[facility] [id number] [place], [place] [address]LlDr. Glenys Holly XR CHEST 2 Von 05-10-2022 [...] RAMIRO SPENCER Date: 2022-05-10 08:10 Normal [facility] BNPon 05-09-2022 Natriuretic peptide B (Bld) [Mass/Vol] 1975.0 pg/mL Critically high <=1,800.0 [facility] Comment on above: Performed By: #### M G, CMP, TSH, T7, BNP #### [facility] [address] [address] [address] Glenys Holly CBC AUTO DIFFon 05-09-2022 BASO # 0.0 103/ul Normal 0.0-0.1 [facility] Comment on above: Performed By: #### M G, CMP, TSH, T7, BNP #### [facility] [address] [address] [address] Glenys Holly Basophils/100 WBC (Bld) 0.4 % Normal 0.2-2.0 [facility] Comment on above: Performed By: #### M G, CMP, TSH, T7, BNP #### [facility] [address] [address] [address] Glenys Holly EO # 0.0 103/ul Normal 0.0-0.7 [facility] Comment on above: Performed By: #### M G, CMP, TSH, T7, BNP #### [facility] [address] [place] [address] Dr. Glenys Holly Eosinophils/100 WBC (Bld) 0.0 % Critically low 0.9-7.0 [facility] Comment on above: Performed By: #### M G, CMP, TSH, T7, BNP #### [facility] [address] [place] [address] Dr. Glenys Holly Erythrocyte distribution width (RBC) [Ratio] 15.2 % Critically high 11.0-15.0 [facility] Comment on above: Performed By: #### M G, CMP, TSH, T7, BNP #### [facility] [address] [place] [address] Dr. Glenys Holly Hematocrit (Bld) [Volume fraction] 41.7 % Normal 36.0-48.0 [facility] Comment on above: Performed By: #### M G, CMP, TSH, T7, BNP #### [facility] [address] [place] [address] Dr. Glenys Holly Hemoglobin (Bld) [Mass/Vol] 14.1 g/dL Normal 12.0-16.0 [facility] Comment on above: Performed By: #### M G, CMP, TSH, T7, BNP #### [facility] [address] [place] [address] Dr. Glenys Holly IG # 0.12 10e3/ul Critically high 0.00-0.03 [facility] Comment on above: Performed By: #### M G, CMP, TSH, T7, BNP #### [facility] [address] [place] [address] Dr. Glenys Holly IG % 1.2 % Critically high 0.0-0.5 [facility] Comment on above: Performed By: #### M G, CMP, TSH, T7, BNP #### [facility] [address] [place] [address] Dr. Glenys Holly LYMPH # 1.6 103/ul Normal 1.2-3.8 [facility] Comment on above: Performed By: #### M G, CMP, TSH, T7, BNP #### [facility] [address] [place] [address] Dr. Glenys Holly Lymphocytes/100 WBC (Bld) 16.0 % Critically low 20.5-60.0 [facility] Comment on above: Performed By: #### M G, CMP, TSH, T7, BNP #### [facility] [address] [place] [address] Dr. Glenys Holly MANUAL DIFF REQ NO Normal [facility] Comment on above: Performed By: #### M G, CMP, TSH, T7, BNP #### [facility] [address] [place] [address] Dr. Glenys Holly MCH (RBC) [Entitic mass] 30.0 pg Normal 26.7-34.0 [facility] Comment on above: Performed By: #### M G, CMP, TSH, T7, BNP #### [facility] [address] [place] [address] Dr. Glenys Holly MCHC (RBC) [Mass/Vol] 33.8 g/dL Normal 29.9-35.2 [facility] Comment on above: Performed By: #### M G, CMP, TSH, T7, BNP #### [facility] [address] [place] [address] Dr. Glenys Holly MCV (RBC) [Entitic vol] 88.7 fL Normal 81.0-99.0 [facility] Comment on above: Performed By: #### M G, CMP, TSH, T7, BNP #### [facility] [address] [place] [address] Dr. Glenys Holly MONO # 1.3 103/ul Critically high 0.3-0.8 [facility] Comment on above: Performed By: #### M G, CMP, TSH, T7, BNP #### [facility] [address] [place] [address] Dr. Glenys Holly Monocytes/100 WBC (Bld) 13.2 % Critically high 1.7-12.0 [facility] Comment on above: Performed By: #### M G, CMP, TSH, T7, BNP #### [facility] [address] [address] [address] Glenys Holly NEUT # 6.8 103/ul Critically high 1.4-6.5 [facility] Comment on above: Performed By: #### M G, CMP, TSH, T7, BNP #### [facility] [address] [address] [address] Glenys Holly Neutrophils/100 WBC (Bld) 69.2 % Normal 43.0-75.0 [facility] Comment on above: Performed By: #### M G, CMP, TSH, T7, BNP #### [facility] [address] [place] [address] Dr. Glenys Holly Platelet mean volume (Bld) [Entitic vol] 11.6 fL Normal 9.5-13.5 [facility] Comment on above: Performed By: #### M G, CMP, TSH, T7, BNP #### [facility] [address] [place] [address] Dr. Glenys Holly PLT 329 103/ul Normal 150-450 [facility] Comment on above: Performed By: #### M G, CMP, TSH, T7, BNP #### [facility] [address] [address] [address] Glenys Holly RBC 4.70 106/ul Normal 4.20-5.40 [facility] Comment on above: Performed By: #### M G, CMP, TSH, T7, BNP #### [facility] [address] [address] [address] Glenys Holly WBC 9.9 103/ul Normal 4.0-11.0 [facility] Comment on above: Performed By: #### M G, CMP, TSH, T7, BNP #### [facility] [address] [place] [address] Dr. Glenys Holly PROF 14(COMP METB)on 022 Albumin [Mass/Vol] 3.0 g/dL Critically low 3.4-5.0 [facility] Comment on above: Performed By: #### M G, CMP, TSH, T7, BNP #### [facility] [address] [address] [address] Glenys Holly Albumin/Globulin [Mass ratio] 1.1 {ratio} Normal [facility] Comment on above: Performed By: #### M G, CMP, TSH, T7, BNP #### [facility] [address] [place] [address] Dr. Glenys Holly ALP [Catalytic activity/Vol] 78 U/L Normal 46-116 [facility] Comment on above: Performed By: #### M G, CMP, TSH, T7, BNP #### [facility] [address] [place] [address] Dr. Glenys Holly ALT [Catalytic activity/Vol] 10 U/L Critically low 14-59 [facility] Comment on above: Performed By: #### M G, CMP, TSH, T7, BNP #### [facility] [address] [place] [address] Dr. Glenys Holly Anion gap [Moles/Vol] 9.6 mmol/L Normal [facility] Comment on above: Performed By: #### M G, CMP, TSH, T7, BNP #### [facility] [address] [place] [address] Dr. Glenys Holly AST [Catalytic activity/Vol] 18 U/L Normal 15-37 [facility] Comment on above: Performed By: #### M G, CMP, TSH, T7, BNP #### [facility] [address] [place] [address] Dr. Glenys Holly Bilirubin [Mass/Vol] 0.3 mg/dL Normal 0.2-1.0 [facility] Comment on above: Performed By: #### M G, CMP, TSH, T7, BNP #### [facility] [address] [place] [address] Dr. Glenys Holly Calcium [Mass/Vol] 9.1 mg/dL Normal 8.5-10.1 [facility] Comment on above: Performed By: #### M G, CMP, TSH, T7, BNP #### [facility] [address] [place] [address] Dr. Glenys Holly Chloride [Moles/Vol] 102 mmol/L Normal 98-107 [facility] Comment on above: Performed By: #### M G, CMP, TSH, T7, BNP #### [facility] [address] [address] [address] Glenys Holly CO2 [Moles/Vol] 30.3 mmol/L Normal 21.0-32.0 [facility] Comment on above: Performed By: #### M G, CMP, TSH, T7, BNP #### [facility] [address] [place] [address] Dr. Glenys Holly Creatinine [Mass/Vol] 0.83 mg/dL Normal 0.55-1.02 [facility] Comment on above: Performed By: #### M G, CMP, TSH, T7, BNP #### [facility] [address] [place] [address] Dr. Glenys Holly EGFR-AF FAROESE >60 Normal >=60 [facility] Comment on above: Performed By: #### M G, CMP, TSH, T7, BNP #### [facility] [address] [place] [address] Dr. Glenys Holly EGFR-NON AF FAROESE >60 Normal >=60 [facility] Comment on above: Performed By: #### M G, CMP, TSH, T7, BNP #### [facility] [address] [place] [address] Dr. Glenys Holly Globulin (S) [Mass/Vol] 2.8 g/dL Normal [facility] Comment on above: Performed By: #### M G, CMP, TSH, T7, BNP #### [facility] [address] [place] [address] Dr. Glenys Holly Glucose [Mass/Vol] 105 mg/dL Normal 74-106 [facility] Comment on above: Performed By: #### M G, CMP, TSH, T7, BNP #### [facility] [address] [place] [address] Dr. Glenys Holly Potassium [Moles/Vol] 2.9 mmol/L Critically low 3.5-5.1 [facility] Comment on above: Performed By: #### M G, CMP, TSH, T7, BNP #### [facility] [address] [address] [address] Glenys Holly Protein [Mass/Vol] 5.8 g/dL Critically low 6.4-8.2 [facility] Comment on above: Performed By: #### M G, CMP, TSH, T7, BNP #### [facility] [address] [address] [address] Glenys Holly Sodium [Moles/Vol] 138 mmol/L Normal 136-145 [facility] Comment on above: Performed By: #### M G, CMP, TSH, T7, BNP #### [facility] [address] [address] [address] Glenys Holly Urea nitrogen [Mass/Vol] 21.0 mg/dL Critically high 7.0-18.0 [facility] Comment on above: Performed By: #### M G, CMP, TSH, T7, BNP #### [facility] [address] [address] [address] Glenys Holly Urea nitrogen/Creatinine [Mass ratio] 25.3 mg/mg Normal [facility] Comment on above: Performed By: #### M G, CMP, TSH, T7, BNP #### [facility] [address] [place] [address] Dr. Glenys Holly TROPONIN, HIGH SENSITIVITYon 05-09-2022 HSTROP 49.8 pg/mL Normal 4.0-51.3 [facility] Comment on above: Result Comment: CUT- OFF POINTS HAVE BEEN ESTABLISHED BASED ON THE FOURTH UNIVERSAL DEFINITIONS OF MYOCARDIAL INFARCTION. THE UPPER REFERENCE LIMIT (URL) OF TROPONIN, DEFINED THE 99TH PERCENTILE OF cTnI DISTRIBUTION IN A REFERENCE POPULATION, HAS BEEN CONFIRMED THE DECISION THRESHOLD FOR [place] DIAGNOSIS. Performed By: #### M G, CMP, TSH, T7, BNP #### [facility] [address] [address] [address] Glenys Holly BNPon 05-08-2022 Natriuretic peptide B (Bld) [Mass/Vol] 2723.0 pg/mL Critically high <=1,800.0 [facility] Comment on above: Performed By: #### C MP, HSTROPN, BNP ####[facility] [id number] [address]Dr. Glenys Holly CBC AUTO DIFFon 05-08-2022 BASO # 0.0 103/ul Normal 0.0-0.1 [facility] Comment on above: Performed By: #### M G, CMP, TSH, T7, BNP #### [facility] [address] [place] [address] Dr. Glenys Holly Basophils/100 WBC (Bld) 0.2 % Normal 0.2-2.0 [facility] Comment on above: Performed By: #### M G, CMP, TSH, T7, BNP #### [facility] [address] [place] [address] Dr. Glenys Holly EO # 0.0 103/ul Normal 0.0-0.7 [facility] Comment on above: Performed By: #### M G, CMP, TSH, T7, BNP #### [facility] [address] [place] [address] Dr. Glenys Holly Eosinophils/100 WBC (Bld) 0.1 % Critically low 0.9-7.0 [facility] Comment on above: Performed By: #### M G, CMP, TSH, T7, BNP #### [facility] [address] [place] [address] Dr. Glenys Holly Erythrocyte distribution width (RBC) [Ratio] 15.9 % Critically high 11.0-15.0 [facility] Comment on above: Performed By: #### M G, CMP, TSH, T7, BNP #### [facility] [address] [place] [address] Dr. Glenys Holly Hematocrit (Bld) [Volume fraction] 38.0 % Normal 36.0-48.0 [facility] Comment on above: Performed By: #### M G, CMP, TSH, T7, BNP #### [facility] [address] [place] [address] Dr. Glenys Holly Hemoglobin (Bld) [Mass/Vol] 12.5 g/dL Normal 12.0-16.0 [facility] Comment on above: Performed By: #### M G, CMP, TSH, T7, BNP #### [facility] [address] [place] [address] Dr. Glenys Holly IG # 0.17 10e3/ul Critically high 0.00-0.03 [facility] Comment on above: Performed By: #### M G, CMP, TSH, T7, BNP #### [facility] [address] [place] [address] Dr. Glenys Holly IG % 1.1 % Critically high 0.0-0.5 [facility] Comment on above: Performed By: #### M G, CMP, TSH, T7, BNP #### [facility] [address] [place] [address] Dr. Glenys Holly LYMPH # 1.0 103/ul Critically low 1.2-3.8 [facility] Comment on above: Performed By: #### M G, CMP, TSH, T7, BNP #### [facility] [address] [place] [address] Dr. Glenys Holly Lymphocytes/100 WBC (Bld) 6.2 % Critically low 20.5-60.0 [facility] Comment on above: Performed By: #### M G, CMP, TSH, T7, BNP #### [facility] [address] [place] [address] Dr. Glenys Holly MANUAL DIFF REQ NO Normal [facility] Comment on above: Performed By: #### M G, CMP, TSH, T7, BNP #### [facility] [address] [place] [address] Dr. Glenys Holly MCH (RBC) [Entitic mass] 30.1 pg Normal 26.7-34.0 [facility] Comment on above: Performed By: #### M G, CMP, TSH, T7, BNP #### [facility] [address] [place] [address] Dr. Glenys Holly MCHC (RBC) [Mass/Vol] 32.9 g/dL Normal 29.9-35.2 [facility] Comment on above: Performed By: #### M G, CMP, TSH, T7, BNP #### [facility] [address] [place] [address] Dr. Glenys Holly MCV (RBC) [Entitic vol] 91.6 fL Normal 81.0-99.0 [facility] Comment on above: Performed By: #### M G, CMP, TSH, T7, BNP #### [facility] [address] [place] [address] Dr. Glenys Holly MONO # 0.8 103/ul Normal 0.3-0.8 [facility] Comment on above: Performed By: #### M G, CMP, TSH, T7, BNP #### [facility] [address] [place] [address] Dr. Glenys Holly Monocytes/100 WBC (Bld) 5.2 % Normal 1.7-12.0 [facility] Comment on above: Performed By: #### M G, CMP, TSH, T7, BNP #### [facility] [address] [place] [address] Dr. Glenys Holly NEUT # 14.0 103/ul Critically high 1.4-6.5 [facility] Comment on above: Performed By: #### M G, CMP, TSH, T7, BNP #### [facility] [address] [place] [address] Dr. Glenys Holly Neutrophils/100 WBC (Bld) 87.2 % Critically high 43.0-75.0 [facility] Comment on above: Performed By: #### M G, CMP, TSH, T7, BNP #### [facility] [address] [place] [address] Dr. Glenys Holly Platelet mean volume (Bld) [Entitic vol] 11.7 fL Normal 9.5-13.5 [facility] Comment on above: Performed By: #### M G, CMP, TSH, T7, BNP #### [facility] [address] [place] [address] Dr. Glenys Holly PLT 285 103/ul Normal 150-450 [facility] Comment on above: Performed By: #### M G, CMP, TSH, T7, BNP #### [facility] [address] [place] [address] Dr. Glenys Holly RBC 4.15 106/ul Critically low 4.20-5.40 [facility] Comment on above: Performed By: #### M G, CMP, TSH, T7, BNP #### [facility] [address] [place] [address] Dr. Glenys Holly WBC 16.0 103/ul Critically high 4.0-11.0 [facility] Comment on above: Performed By: #### M G, CMP, TSH, T7, BNP #### [facility] [address] [place] [address] Dr. Glenys Holly PROF 14(COMP METB)on 022 Albumin [Mass/Vol] 2.7 g/dL Critically low 3.4-5.0 [facility] Comment on above: Performed By: #### C MP, HSTROPN, BNP #### [facility] [address] [place] [address] Dr. Glenys Holly Albumin/Globulin [Mass ratio] 1.0 {ratio} Normal [facility] Comment on above: Performed By: #### C MP, HSTROPN, BNP #### [facility] [address] [place] [address] Dr. Glenys Holly ALP [Catalytic activity/Vol] 73 U/L Normal 46-116 [facility] Comment on above: Performed By: #### C MP, HSTROPN, BNP #### [facility] [address] [place] [address] Dr. Glenys Holly ALT [Catalytic activity/Vol] 11 U/L Critically low 14-59 [facility] Comment on above: Performed By: #### C MP, HSTROPN, BNP #### [facility] [address] [place] [address] Dr. Glenys Holly Anion gap [Moles/Vol] 10.5 mmol/L Normal [facility] Comment on above: Performed By: #### C MP, HSTROPN, BNP #### [facility] [address] [place] [address] Dr. Glenys Holly AST [Catalytic activity/Vol] 21 U/L Normal 15-37 [facility] Comment on above: Performed By: #### C MP, HSTROPN, BNP #### [facility] [address] [place] [address] Dr. Glenys Holly Bilirubin [Mass/Vol] 0.3 mg/dL Normal 0.2-1.0 [facility] Comment on above: Performed By: #### C MP, HSTROPN, BNP #### [facility] [address] [place] [address] Dr. Glenys Holly Calcium [Mass/Vol] 8.6 mg/dL Normal 8.5-10.1 [facility] Comment on above: Performed By: #### C MP, HSTROPN, BNP #### [facility] [address] [place] [address] Dr. Glenys Holly Chloride [Moles/Vol] 106 mmol/L Normal 98-107 [facility] Comment on above: Performed By: #### C MP, HSTROPN, BNP #### [facility] [address] [place] [address] Dr. Glenys Holly CO2 [Moles/Vol] 29.0 mmol/L Normal 21.0-32.0 [facility] Comment on above: Performed By: #### C MP, HSTROPN, BNP #### [facility] [address] [place] [address] Dr. Glenys Holly Creatinine [Mass/Vol] 0.88 mg/dL Normal 0.55-1.02 [facility] Comment on above: Performed By: #### C MP, HSTROPN, BNP #### [facility] [address] [place] [address] Dr. Glenys Holly EGFR-AF FAROESE >60 Normal >=60 [facility] Comment on above: Performed By: #### C MP, HSTROPN, BNP #### [facility] [address] [place] [address] Dr. Glenys Holly EGFR-NON AF FAROESE >60 Normal >=60 [facility] Comment on above: Performed By: #### C MP, HSTROPN, BNP #### [facility] [address] [place] [address] Dr. Glenys Holly Globulin (S) [Mass/Vol] 2.6 g/dL Normal [facility] Comment on above: Performed By: #### C MP, HSTROPN, BNP #### [facility] [address] [place] [address] Dr. Glenys Holly Glucose [Mass/Vol] 116 mg/dL Critically high 74-106 [facility] Comment on above: Performed By: #### C MP, HSTROPN, BNP #### [facility] [address] [place] [address] Dr. Glenys Holly Potassium [Moles/Vol] 3.5 mmol/L Normal 3.5-5.1 [facility] Comment on above: Performed By: #### C MP, HSTROPN, BNP #### [facility] [address] [place] [address] Dr. Glenys Holly Protein [Mass/Vol] 5.3 g/dL Critically low 6.4-8.2 [facility] Comment on above: Performed By: #### C MP, HSTROPN, BNP #### [facility] [address] [place] [address] Dr. Glenys Holly Sodium [Moles/Vol] 142 mmol/L Normal 136-145 [facility] Comment on above: Performed By: #### C MP, HSTROPN, BNP #### [facility] [address] [place] [address] Dr. Glenys Holly Urea nitrogen [Mass/Vol] 23.0 mg/dL Critically high 7.0-18.0 [facility] Comment on above: Performed By: #### C MP, HSTROPN, BNP #### [facility] [address] [place] [address] Dr. Glenys Holly Urea nitrogen/Creatinine [Mass ratio] 26.1 mg/mg Normal [facility] Comment on above: Performed By: #### C MP, HSTROPN, BNP #### [facility] [address] [place] [address] Dr. Glenys Holly TROPONIN, HIGH SENSITIVITYon 05-08-2022 HSTROP 60.8 pg/mL Critically high 4.0-51.3 [facility] Comment on above: Result Comment: CUT- OFF POINTS HAVE BEEN ESTABLISHED BASED ON THE FOURTH UNIVERSAL DEFINITIONS OF MYOCARDIAL INFARCTION. THE UPPER REFERENCE LIMIT (URL) OF TROPONIN, DEFINED THE 99TH PERCENTILE OF cTnI DISTRIBUTION IN A REFERENCE POPULATION, HAS BEEN CONFIRMED THE DECISION THRESHOLD FOR [place] DIAGNOSIS. Performed By: #### C MP, HSTROPN, BNP ####[facility] [id number] [address]Dr. Glenys Holly BNPon 05-07-2022 Natriuretic peptide B (Bld) [Mass/Vol] 1476.0 pg/mL Normal <=1,800.0 [facility] Comment on above: Performed By: #### C MP, HSTROPN, BNP ####[facility] [id number] [address]Dr. Glenys Holly CBC AUTO DIFFon 05-07-2022 BASO # 0.0 103/ul Normal 0.0-0.1 [facility] Comment on above: Performed By: #### M G, CMP, TSH, T7, BNP #### [facility] [address] [address] [address] Glenys Holly Basophils/100 WBC (Bld) 0.1 % Critically low 0.2-2.0 [facility] Comment on above: Performed By: #### M G, CMP, TSH, T7, BNP #### [facility] [address] [address] [address] Glenys Holly EO # 0.0 103/ul Normal 0.0-0.7 [facility] Comment on above: Performed By: #### M G, CMP, TSH, T7, BNP #### [facility] [address] [address] [address] Glenys Holly Eosinophils/100 WBC (Bld) 0.0 % Critically low 0.9-7.0 [facility] Comment on above: Performed By: #### M G, CMP, TSH, T7, BNP #### [facility] [address] [address] [address] Glenys Holly Erythrocyte distribution width (RBC) [Ratio] 16.3 % Critically high 11.0-15.0 [facility] Comment on above: Performed By: #### M G, CMP, TSH, T7, BNP #### [facility] [address] [place] [address] Dr. Glenys Holly Hematocrit (Bld) [Volume fraction] 34.1 % Critically low 36.0-48.0 [facility] Comment on above: Performed By: #### M G, CMP, TSH, T7, BNP #### [facility] [address] [place] [address] Dr. Glenys Holly Hemoglobin (Bld) [Mass/Vol] 11.2 g/dL Critically low 12.0-16.0 [facility] Comment on above: Performed By: #### M G, CMP, TSH, T7, BNP #### [facility] [address] [place] [address] Dr. Glenys Holly IG # 0.22 10e3/ul Critically high 0.00-0.03 [facility] Comment on above: Performed By: #### M G, CMP, TSH, T7, BNP #### [facility] [address] [place] [address] Dr. Glenys Holly IG % 1.0 % Critically high 0.0-0.5 [facility] Comment on above: Performed By: #### M G, CMP, TSH, T7, BNP #### [facility] [address] [place] [address] Dr. Glenys Holly LYMPH # 1.3 103/ul Normal 1.2-3.8 [facility] Comment on above: Performed By: #### M G, CMP, TSH, T7, BNP #### [facility] [address] [place] [address] Dr. Glenys Holly Lymphocytes/100 WBC (Bld) 6.0 % Critically low 20.5-60.0 [facility] Comment on above: Performed By: #### M G, CMP, TSH, T7, BNP #### [facility] [address] [place] [address] Dr. Glenys Holly MANUAL DIFF REQ NO Normal [facility] Comment on above: Performed By: #### M G, CMP, TSH, T7, BNP #### [facility] [address] [place] [place] [address] Dr. Glenys Holly MCH (RBC) [Entitic mass] 30.7 pg Normal 26.7-34.0 [facility] Comment on above: Performed By: #### M G, CMP, TSH, T7, BNP #### [facility] [address] [place] [address] Dr. Glenys Holly MCHC (RBC) [Mass/Vol] 32.8 g/dL Normal 29.9-35.2 [facility] Comment on above: Performed By: #### M G, CMP, TSH, T7, BNP #### [facility] [address] [place] [address] Dr. Glenys Holly MCV (RBC) [Entitic vol] 93.4 fL Normal 81.0-99.0 [facility] Comment on above: Performed By: #### M G, CMP, TSH, T7, BNP #### [facility] [address] [place] [address] Dr. Glenys Holly MONO # 1.1 103/ul Critically high 0.3-0.8 [facility] Comment on above: Performed By: #### M G, CMP, TSH, T7, BNP #### [facility] [address] [place] [address] Dr. Glenys Holly Monocytes/100 WBC (Bld) 4.8 % Normal 1.7-12.0 [facility] Comment on above: Performed By: #### M G, CMP, TSH, T7, BNP #### [facility] [address] [place] [address] Dr. Glenys Holly NEUT # 19.4 103/ul Critically high 1.4-6.5 [facility] Comment on above: Performed By: #### M G, CMP, TSH, T7, BNP #### [facility] [address] [place] [address] Dr. Glenys Holly Neutrophils/100 WBC (Bld) 88.1 % Critically high 43.0-75.0 [facility] Comment on above: Performed By: #### M G, CMP, TSH, T7, BNP #### [facility] [address] [address] [address] Glenys Holly Platelet mean volume (Bld) [Entitic vol] 11.6 fL Normal 9.5-13.5 [facility] Comment on above: Performed By: #### M G, CMP, TSH, T7, BNP #### [facility] [address] [address] [address] Glenys Holly PLT 309 103/ul Normal 150-450 [facility] Comment on above: Performed By: #### M G, CMP, TSH, T7, BNP #### [facility] [address] [place] [address] Dr. Glenys Holly RBC 3.65 106/ul Critically low 4.20-5.40 [facility] Comment on above: Performed By: #### M G, CMP, TSH, T7, BNP #### [facility] [address] [address] [address] Glenys Holly WBC 22.0 103/ul Critically high 4.0-11.0 [facility] Comment on above: Performed By: #### M G, CMP, TSH, T7, BNP #### [facility] [address] [address] [address] Glenys Holly PROF 14(COMP METB)on 05-07- 022 Albumin [Mass/Vol] 2.5 g/dL Critically low 3.4-5.0 [facility] Comment on above: Performed By: #### C GEOFFREY, HSTROPN, BNP ####[facility] [address] [address]Dr. Glenys Holly Albumin/Globulin [Mass ratio] 1.0 {ratio} Normal [facility] Comment on above: Performed By: #### C GEOFFREY, HSTROPN, BNP ####[facility] [address] [address]Dr. Glenys Holly ALP [Catalytic activity/Vol] 69 U/L Normal 46-116 [facility] Comment on above: Performed By: #### C GEOFFREY, HSTROPN, BNP ####[facility] [address] [address]Dr. Glenys Holly ALT [Catalytic activity/Vol] 12 U/L Critically low 14-59 [facility] Comment on above: Performed By: #### C MP, HSTROPN, BNP ####[facility] [address] [address]Dr. Glenys Holly Anion gap [Moles/Vol] 10.9 mmol/L Normal [facility] Comment on above: Performed By: #### C MP, HSTROPN, BNP ####[facility] [address] [place], [place] [address]Dr. Glenys Holly AST [Catalytic activity/Vol] 25 U/L Normal 15-37 [facility] Comment on above: Performed By: #### C MP, HSTROPN, BNP ####[facility] [address] [place], [place] [address]Dr. Glenys Holly Bilirubin [Mass/Vol] 0.1 mg/dL Critically low 0.2-1.0 [facility] Comment on above: Performed By: #### C MP, HSTROPN, BNP ####[facility] [address] [place], [place] [address]Dr. Gleyns Holly Calcium [Mass/Vol] 9.1 mg/dL Normal 8.5-10.1 [facility] Comment on above: Performed By: #### C MP, HSTROPN, BNP ####[facility] [address] [address]Dr. Glenys Holly Chloride [Moles/Vol] 110 mmol/L Critically high 98-107 [facility] Comment on above: Performed By: #### C MP, HSTROPN, BNP ####[facility] [address] [place], [place] [address]Dr. Glenys Holly CO2 [Moles/Vol] 24.8 mmol/L Normal 21.0-32.0 [facility] Comment on above: Performed By: #### C MP, HSTROPN, BNP ####[facility] [address] [address]Dr. Glenys Holly Creatinine [Mass/Vol] 0.87 mg/dL Normal 0.55-1.02 [facility] Comment on above: Performed By: #### C MP, HSTROPN, BNP ####[facility] [address] [address]Dr. Glenys Holly EGFR-AF FAROESE >60 Normal >=60 [facility] Comment on above: Performed By: #### C MP, HSTROPN, BNP ####[facility] [address] [address]Dr. Glenys Holly EGFR-NON AF FAROESE >60 Normal >=60 [facility] Comment on above: Performed By: #### C MP, HSTROPN, BNP ####[facility] [address] [address]Dr. Glenys Holly Globulin (S) [Mass/Vol] 2.5 g/dL Normal [facility] Comment on above: Performed By: #### C MP, HSTROPN, BNP ####[facility] [address] [address]Dr. Glenys Holly Glucose [Mass/Vol] 128 mg/dL Critically high 74-106 [facility] Comment on above: Performed By: #### C MP, HSTROPN, BNP ####[facility] [address] [address]Dr. Glenys Holly Potassium [Moles/Vol] 4.7 mmol/L Normal 3.5-5.1 [facility] Comment on above: Performed By: #### C MP, HSTROPN, BNP ####[facility] [address] [address]Dr. Glenys Holly Protein [Mass/Vol] 5.0 g/dL Critically low 6.4-8.2 [facility] Comment on above: Performed By: #### C MP, HSTROPN, BNP ####[facility] [address] [place], [place] [address]Dr. Glenys Holly Sodium [Moles/Vol] 141 mmol/L Normal 136-145 [facility] Comment on above: Performed By: #### C MP, HSTROPN, BNP ####[facility] [address] [address]Dr. Glenys Holly Urea nitrogen [Mass/Vol] 28.0 mg/dL Critically high 7.0-18.0 [facility] Comment on above: Performed By: #### C MP, HSTROPN, BNP ####[facility] [address] [id number]. Glenys Holly Urea nitrogen/Creatinine [Mass ratio] 32.2 mg/mg Normal [facility] Comment on above: Performed By: #### C MP, HSTROPN, BNP ####[facility] [address] [address]Dr. Glenys Holly TROPONIN, HIGH SENSITIVITYon 05-07-2022 HSTROP 78.5 pg/mL Critically high 4.0-51.3 [facility] Comment on above: Result Comment: CUT- OFF POINTS HAVE BEEN ESTABLISHED BASED ON THE FOURTH UNIVERSAL DEFINITIONS OF MYOCARDIAL INFARCTION. THE UPPER REFERENCE LIMIT (URL) OF TROPONIN, DEFINED THE 99TH PERCENTILE OF cTnI DISTRIBUTION IN A REFERENCE POPULATION, HAS BEEN CONFIRMED THE DECISION THRESHOLD FOR [place] DIAGNOSIS. Performed By: #### C MP, HSTROPN, BNP ####[facility] [address] [phone]. Glenys Holly XR CHEST 2 Von 05-07-2022 [...] [place] Date: 2022-05-07 10:34 Normal [facility] BNPon 05-06-2022 Natriuretic peptide B (Bld) [Mass/Vol] 1143.0 pg/mL Normal <=1,800.0 [facility] Comment on above: Performed By: #### C MP, BNP ####[facility] [address] [address]Dr. Glenys Holly CBC AUTO DIFFon 05-06-2022 BASO # 0.0 103/ul Normal 0.0-0.1 [facility] Comment on above: Performed By: #### M G, CMP, TSH, T7, BNP #### [facility] [address] [address] [address] Glenys Holly Basophils/100 WBC (Bld) 0.1 % Critically low 0.2-2.0 [facility] Comment on above: Performed By: #### M G, CMP, TSH, T7, BNP #### [facility] [address] [address] [address] Glenys Holly EO # 0.0 103/ul Normal 0.0-0.7 [facility] Comment on above: Performed By: #### M G, CMP, TSH, T7, BNP #### [facility] [address] [address] [address] Glenys Holly Eosinophils/100 WBC (Bld) 0.0 % Critically low 0.9-7.0 [facility] Comment on above: Performed By: #### M G, CMP, TSH, T7, BNP #### [facility] [address] [address] [address] Glenys Holly Erythrocyte distribution width (RBC) [Ratio] 15.8 % Critically high 11.0-15.0 [facility] Comment on above: Performed By: #### M G, CMP, TSH, T7, BNP #### [facility] [address] [address] [address] Glenys Holly Hematocrit (Bld) [Volume fraction] 36.7 % Normal 36.0-48.0 [facility] Comment on above: Performed By: #### M G, CMP, TSH, T7, BNP #### [facility] [address] [place] [address] Dr. Glenys Holly Hemoglobin (Bld) [Mass/Vol] 12.3 g/dL Normal 12.0-16.0 [facility] Comment on above: Performed By: #### M G, CMP, TSH, T7, BNP #### [facility] [address] [place] [address] Dr. Glenys Holly IG # 0.10 10e3/ul Critically high 0.00-0.03 [facility] Comment on above: Performed By: #### M G, CMP, TSH, T7, BNP #### [facility] [address] [place] [address] Dr. Glenys Holly IG % 0.5 % Normal 0.0-0.5 [facility] Comment on above: Performed By: #### M G, CMP, TSH, T7, BNP #### [facility] [address] [place] [address] Dr. Glenys Holly LYMPH # 1.4 103/ul Normal 1.2-3.8 [facility] Comment on above: Performed By: #### M G, CMP, TSH, T7, BNP #### [facility] [address] [place] [address] Dr. Glenys Holly Lymphocytes/100 WBC (Bld) 7.2 % Critically low 20.5-60.0 [facility] Comment on above: Performed By: #### M G, CMP, TSH, T7, BNP #### [facility] [address] [place] [address] Dr. Glenys Holly MANUAL DIFF REQ NO Normal [facility] Comment on above: Performed By: #### M G, CMP, TSH, T7, BNP #### [facility] [address] [place] [address] Dr. Glenys Holly MCH (RBC) [Entitic mass] 30.9 pg Normal 26.7-34.0 [facility] Comment on above: Performed By: #### M G, CMP, TSH, T7, BNP #### [facility] [address] [place] [address] Dr. Glenys Holly [facility] ([facility] [Mass/Vol] 33.5 g/dL Normal 29.9-35.2 [facility] Comment on above: Performed By: #### M G, CMP, TSH, T7, BNP #### [facility] [address] [place] [address] Dr. Glenys Holly MCV (RBC) [Entitic vol] 92.2 fL Normal 81.0-99.0 [facility] Comment on above: Performed By: #### M G, CMP, TSH, T7, BNP #### [facility] [address] [place] [address] Dr. Glenys Holly MONO # 0.9 103/ul Critically high 0.3-0.8 [facility] Comment on above: Performed By: #### M G, CMP, TSH, T7, BNP #### [facility] [address] [place] [address] Dr. Glenys Holly Monocytes/100 WBC (Bld) 4.6 % Normal 1.7-12.0 [facility] Comment on above: Performed By: #### M G, CMP, TSH, T7, BNP #### [facility] [address] [place] [address] Dr. Glenys Holly NEUT # 17.4 103/ul Critically high 1.4-6.5 [facility] Comment on above: Performed By: #### M G, CMP, TSH, T7, BNP #### [facility] [address] [place] [address] Dr. Glenys Holly Neutrophils/100 WBC (Bld) 87.6 % Critically high 43.0-75.0 [facility] Comment on above: Performed By: #### M G, CMP, TSH, T7, BNP #### [facility] [address] [place] [address] Dr. Glenys Holly Platelet mean volume (Bld) [Entitic vol] 11.2 fL Normal 9.5-13.5 [facility] Comment on above: Performed By: #### M G, CMP, TSH, T7, BNP #### [facility] [address] [address] [address] Glenys Holly PLT 310 103/ul Normal 150-450 [facility] Comment on above: Performed By: #### M G, CMP, TSH, T7, BNP #### [facility] [address] [address] [address] Glenys Holly RBC 3.98 106/ul Critically low 4.20-5.40 [facility] Comment on above: Performed By: #### M G, CMP, TSH, T7, BNP #### [facility] [address] [address] [address] Glenys Holly WBC 19.8 103/ul Critically high 4.0-11.0 [facility] Comment on above: Performed By: #### M G, CMP, TSH, T7, BNP #### [facility] [address] [address] [address] Glenys Holly LACTATE/LACTIC ACIDon 2021 Lactate [Moles/Vol] 1.1 mmol/L Normal 0.4-1.9 [facility] Comment on above: Performed By: #### M G, CMP, TSH, T7, BNP #### [facility] [address] [address] [address] Glenys Holly POINT OF CARE GLUCOSEon 04-12 Glucose [Mass/Vol] 164 mg/dL Critically high 74-106 [facility] Comment on above: Performed By: #### M G, CMP, TSH, T7, BNP #### [facility] [address] [address] [address] Glenys Holly PROF 14(COMP METB)on 022 Albumin [Mass/Vol] 2.6 g/dL Critically low 3.4-5.0 [facility] Comment on above: Performed By: #### C MP, BNP ####[facility] [address] [address]Dr. Glenys Holly Albumin/Globulin [Mass ratio] 1.0 {ratio} Normal [facility] Comment on above: Performed By: #### C MP, BNP ####[facility] [address] [address]Dr. Glenys Holly ALP [Catalytic activity/Vol] 88 U/L Normal 46-116 [facility] Comment on above: Performed By: #### C MP, BNP ####[facility] [address] [address]Dr. Glenys Holly ALT [Catalytic activity/Vol] 1 U/L Critically low 14-59 [facility] Comment on above: Performed By: #### C MP, BNP ####[facility] [address] [address]Dr. Glenys Avni Anion gap [Moles/Vol] 9.9 mmol/L Normal [facility] Comment on above: Performed By: #### C MP, BNP ####[facility] [address] [place], [place] [address]Dr. Glenys Avni AST [Catalytic activity/Vol] 19 U/L Normal 15-37 [facility] Comment on above: Performed By: #### C MP, BNP ####[facility] [address] [address]Dr. Glenys Avni Bilirubin [Mass/Vol] 0.2 mg/dL Normal 0.2-1.0 [facility] Comment on above: Performed By: #### C MP, BNP ####[facility] [address] [place], [place] [address]Dr. Glenys Avni Calcium [Mass/Vol] 8.7 mg/dL Normal 8.5-10.1 [facility] Comment on above: Performed By: #### C MP, BNP ####[facility] [address] [address]Dr. Glenys Holly Chloride [Moles/Vol] 108 mmol/L Critically high 98-107 [facility] Comment on above: Performed By: #### C MP, BNP ####[facility] [address] [address]Dr. Glenys Holly CO2 [Moles/Vol] 25.2 mmol/L Normal 21.0-32.0 [facility] Comment on above: Performed By: #### C MP, BNP ####[facility] [address] [address]Dr. Glenys Holly Creatinine [Mass/Vol] 0.80 mg/dL Normal 0.55-1.02 [facility] Comment on above: Performed By: #### C MP, BNP ####[facility] [address] [address]Dr. Glenys Avni EGFR-AF FAROESE >60 Normal >=60 [facility] Comment on above: Performed By: #### C MP, BNP ####[facility] [address] [address]Dr. Glenys Avni EGFR-NON AF FAROESE >60 Normal >=60 [facility] Comment on above: Performed By: #### C MP, BNP ####[facility] [address] [address]Dr. Glenys Avni Globulin (S) [Mass/Vol] 2.7 g/dL Normal [facility] Comment on above: Performed By: #### C MP, BNP ####[facility] [address] [address]Dr. Glenys Avni Glucose [Mass/Vol] 123 mg/dL Critically high 74-106 [facility] Comment on above: Performed By: #### C MP, BNP ####[facility] [address] [address]Dr. Glenys Avni Potassium [Moles/Vol] 4.1 mmol/L Normal 3.5-5.1 [facility] Comment on above: Performed By: #### C MP, BNP ####[facility] [address] [id number]. Glenys Avni Protein [Mass/Vol] 5.3 g/dL Critically low 6.4-8.2 [facility] Comment on above: Performed By: #### C MP, BNP ####[facility] [address] [address]Dr. Glenys Avni Sodium [Moles/Vol] 139 mmol/L Normal 136-145 [facility] Comment on above: Performed By: #### C MP, BNP ####[facility] [address] [phone]. Glenys Holly Urea nitrogen [Mass/Vol] 22.0 mg/dL Critically high 7.0-18.0 [facility] Comment on above: Performed By: #### C MP, BNP ####[facility] [address] [id number] Holly Urea nitrogen/Creatinine [Mass ratio] 27.5 mg/mg Normal [facility] Comment on above: Performed By: #### C MP, BNP ####[facility] [address] [address]DrRatna Holly T3, TOTAL (TRIIODOTHYRONINE) on 05-06-2022 T3, TOTAL 69 ng/dL Critically low 71-180 [facility] Comment on above: Performed By: #### M G, CMP, TSH, T7, BNP #### [facility] [address] [address] [address] Glenys Holly TROPONIN, HIGH SENSITIVITYon 05-06-2022 HSTROP 141.0 pg/mL Critically high 4.0-51.3 [facility] Comment on above: Result Comment: CUT- OFF POINTS HAVE BEEN ESTABLISHED BASED ON THE FOURTH UNIVERSAL DEFINITIONS OF MYOCARDIAL INFARCTION. THE UPPER REFERENCE LIMIT (URL) OF TROPONIN, DEFINED THE 99TH PERCENTILE OF cTnI DISTRIBUTION IN A REFERENCE POPULATION, HAS BEEN CONFIRMED THE DECISION THRESHOLD FOR [place] DIAGNOSIS. Performed By: #### M G, CMP, TSH, T7, BNP #### [facility] [address] [address] [address] Glenys Holly AMYLASEon 05-05-2022 Amylase [Catalytic activity/Vol] 26 U/L Normal 25-115 [facility] Comment on above: Performed By: #### M G, CMP, TSH, T7, BNP #### [facility] [address] [address] [address] Glenys Holly BNPon 05-05-2022 Natriuretic peptide B (Bld) [Mass/Vol] 811.0 pg/mL Normal <=1,800.0 [facility] Comment on above: Performed By: #### M G, CMP, TSH, T7, BNP #### [facility] [address] [address] [address] Glenys Holly CARDIAC ADEEL 3-6on 2 CK [Catalytic activity/Vol] 33 U/L Normal 26-192 [facility] Comment on above: Performed By: #### C MREP ####[facility] [address] [id number]. Glenys Holly CK.MB [Mass/Vol] 1.13 ng/mL Normal <=3.60 [facility] Comment on above: Performed By: #### C MREP ####[facility] [address] [address]Dr. Glenys Holly HSTROP 164.3 pg/mL Critically high 4.0-51.3 [facility] Comment on above: Result Comment: CUT- OFF POINTS HAVE BEEN ESTABLISHED BASED ON THE FOURTH UNIVERSAL DEFINITIONS OF MYOCARDIAL INFARCTION. THE UPPER REFERENCE LIMIT (URL) OF TROPONIN, DEFINED THE 99TH PERCENTILE OF cTnI DISTRIBUTION IN A REFERENCE POPULATION, HAS BEEN CONFIRMED THE DECISION THRESHOLD FOR [place] DIAGNOSIS. Performed By: #### C MREP ####[facility] [address] [address]Dr. Glenys Holly CK [Catalytic activity/Vol] 38 U/L Normal 26-192 [facility] Comment on above: Performed By: #### M G, CMP, TSH, T7, BNP #### [facility] [address] [address] [address] Glenys Holly CK.MB [Mass/Vol] 0.91 ng/mL Normal <=3.60 [facility] Comment on above: Performed By: #### M G, CMP, TSH, T7, BNP #### [facility] [address] [address] [address] Glenys Holly HSTROP 178.2 pg/mL Critically high 4.0-51.3 [facility] Comment on above: Result Comment: CUT- OFF POINTS HAVE BEEN ESTABLISHED BASED ON THE FOURTH UNIVERSAL DEFINITIONS OF MYOCARDIAL INFARCTION. THE UPPER REFERENCE LIMIT (URL) OF TROPONIN, DEFINED THE 99TH PERCENTILE OF cTnI DISTRIBUTION IN A REFERENCE POPULATION, HAS BEEN CONFIRMED THE DECISION THRESHOLD FOR [place] DIAGNOSIS. Performed By: #### M G, CMP, TSH, T7, BNP #### [facility] [address] [place] [address] Dr. Glenys Holly CARDIAC ADEEL ADMITon 022 CK [Catalytic activity/Vol] 29 U/L Normal 26-192 [facility] Comment on above: Performed By: #### M G, CMP, TSH, T7, BNP #### [facility] [address] [place] [address] Dr. Glenys Holly CK.MB [Mass/Vol] 0.73 ng/mL Normal <=3.60 [facility] Comment on above: Performed By: #### M G, CMP, TSH, T7, BNP #### [facility] [address] [place] [address] Dr. Glenys Holly HSTROP 191.6 pg/mL Critically high 4.0-51.3 [facility] Comment on above: Result Comment: CUT- OFF POINTS HAVE BEEN ESTABLISHED BASED ON THE FOURTH UNIVERSAL DEFINITIONS OF MYOCARDIAL INFARCTION. THE UPPER REFERENCE LIMIT (URL) OF TROPONIN, DEFINED THE 99TH PERCENTILE OF cTnI DISTRIBUTION IN A REFERENCE POPULATION, HAS BEEN CONFIRMED THE DECISION THRESHOLD FOR [place] DIAGNOSIS. Performed By: #### M G, CMP, TSH, T7, BNP #### [facility] [address] [place] [address] Dr. Glenys Holly NEO 79 ng/mL Normal 9-82 [facility] Comment on above: Performed By: #### M G, CMP, TSH, T7, BNP #### [facility] [address] [place] [address] Dr. Glenys Holly CBC W MANUAL DIFFon 05-05-20 22 ANISOCYTOSIS 1+ Normal [facility] Comment on above: Performed By: #### M G, CMP, TSH, T7, BNP #### [facility] [address] [place] [address] Dr. Glenys Holly ATYPICAL LYMPH # Normal [facility] Comment on above: Performed By: #### M G, CMP, TSH, T7, BNP #### [facility] [address] [place] [address] Dr. Glenys Holly ATYPICAL LYMPH % Normal [facility] Comment on above: Performed By: #### M G, CMP, TSH, T7, BNP #### [facility] [address] [place] [address] Dr. Glenys Holly BAND # 0.2 103/ul Normal 0.0-0.3 [facility] Comment on above: Performed By: #### M G, CMP, TSH, T7, BNP #### [facility] [address] [place] [address] Dr. Glenys Holly BAND % 1 % Normal 0-5 [facility] Comment on above: Performed By: #### M G, CMP, TSH, T7, BNP #### [facility] [address] [place] [address] Dr. Glenys Holly BASOM # 0.00 103/ul Normal 0.00-0.10 [facility] Comment on above: Performed By: #### M G, CMP, TSH, T7, BNP #### [facility] [address] [place] [address] Dr. Glenys Holly BASOM % 0.0 % Critically low 0.2-2.0 [facility] Comment on above: Performed By: #### M G, CMP, TSH, T7, BNP #### [facility] [address] [place] [address] Dr. Glenys Holly BLAST # Normal [facility] Comment on above: Performed By: #### M G, CMP, TSH, T7, BNP #### [facility] [address] [place] [address] Dr. Glenys Holly BLAST % Normal [facility] Comment on above: Performed By: #### M G, CMP, TSH, T7, BNP #### [facility] [address] [place] [address] Dr. Glenys Holly CORRECTED WBC Normal 4.0-11.0 [facility] Comment on above: Performed By: #### M G, CMP, TSH, T7, BNP #### [facility] [address] [place] [address] Dr. Glenys Holly EOS # 0.00 103/ul Normal 0.00-0.70 [facility] Comment on above: Performed By: #### M G, CMP, TSH, T7, BNP #### [facility] [address] [place] [address] Dr. Glenys Holly EOS% 0.0 % Critically low 0.9-7.0 [facility] Comment on above: Performed By: #### M G, CMP, TSH, T7, BNP #### [facility] [address] [place] [address] Dr. Glenys Holly HCT 41.5 % Normal 36.0-48.0 [facility] Comment on above: Performed By: #### M G, CMP, TSH, T7, BNP #### [facility] [address] [place] [address] Dr. Glenys Holly HGB 14.2 g/dl Normal 12.0-16.0 [facility] Comment on above: Performed By: #### M G, CMP, TSH, T7, BNP #### [facility] [facility] [address] [place] [address] Dr. Glenys Holly LYMPHM # 0.96 103/ul Critically low 1.20-3.80 [facility] Comment on above: Performed By: #### M G, CMP, TSH, T7, BNP #### [facility] [address] [place] [address] Dr. Glenys Holly LYMPHM% 6.0 % Critically low 20.5-60.0 [facility] Comment on above: Performed By: #### M G, CMP, TSH, T7, BNP #### [facility] [address] [place] [address] Dr. Glenys Holly MCH 31.0 pg Normal 26.7-34.0 [facility] Comment on above: Performed By: #### M G, CMP, TSH, T7, BNP #### [facility] [address] [place] [address] Dr. Glenys Holly MCHC 34.2 g/dl Normal 29.9-35.2 [facility] Comment on above: Performed By: #### M G, CMP, TSH, T7, BNP #### [facility] [address] [address] [address] Glenys Holly MCV 90.6 fL Normal 81.0-99.0 [facility] Comment on above: Performed By: #### M G, CMP, TSH, T7, BNP #### [facility] [address] [address] [address] Glenys Holly METAMYELOCYTE # Normal [facility] Comment on above: Performed By: #### M G, CMP, TSH, T7, BNP #### [facility] [address] [address] [address] Glenys Holly METAMYELOCYTE % Normal [facility] Comment on above: Performed By: #### M G, CMP, TSH, T7, BNP #### [facility] [address] [address] [address] Glenys Holly MONOM# 2.56 103/ul Critically high 0.30-0.80 [facility] Comment on above: Performed By: #### M G, CMP, TSH, T7, BNP #### [facility] [address] [address] [address] Glenys Holly MONOM% 16.0 % Critically high 1.7-12.0 [facility] Comment on above: Performed By: #### M G, CMP, TSH, T7, BNP #### [facility] [address] [address] [address] Glenys Holly MPV 11.1 fL Normal 9.5-13.5 [facility] Comment on above: Performed By: #### M G, CMP, TSH, T7, BNP #### [facility] [address] [place] [address] Dr. Glenys Holly MYELOCYTE # Normal [facility] Comment on above: Performed By: #### M G, CMP, TSH, T7, BNP #### [facility] [address] [address] [address] Glenys Holly MYELOCYTE % Normal [facility] Comment on above: Performed By: #### M G, CMP, TSH, T7, BNP #### [facility] [address] [address] [address] Glenys Holly NRBC Normal [facility] Comment on above: Performed By: #### M G, CMP, TSH, T7, BNP #### [facility] [address] [address] [address] Glenys Holly PLT 352 103/ul Normal 150-450 [facility] Comment on above: Performed By: #### M G, CMP, TSH, T7, BNP #### [facility] [address] [address] [address] Glenys Holly RBC 4.58 106/ul Normal 4.20-5.40 [facility] Comment on above: Performed By: #### M G, CMP, TSH, T7, BNP #### [facility] [address] [place] [address] Dr. Glenys Holly RDW 15.2 % Critically high 11.0-15.0 [facility] Comment on above: Performed By: #### M G, CMP, TSH, T7, BNP #### [facility] [address] [address] [address] Glenys Holly SEG # 12.32 103/ul Critically high 1.40-6.50 [facility] Comment on above: Performed By: #### M G, CMP, TSH, T7, BNP #### [facility] [address] [place] [address] Dr. Glenys Holly SEG % 77.0 % Critically high 43.0-75.0 [facility] Comment on above: Performed By: #### M G, CMP, TSH, T7, BNP #### [facility] [address] [address] [address] Glenys Holly WBC 16.0 103/ul Critically high 4.0-11.0 [facility] Comment on above: Performed By: #### M G, CMP, TSH, T7, BNP #### [facility] [address] [address] [address] Glenys Holly CTA CHEST WO W [...] YULISSA TALBERT Date: 2022-05-05 09:32 Normal [facility] CULTURE BLOODon 05-05-2022 Microscopic examination of blood, culture Culture Observations: NO GROWTH AT 5 DAYS. Normal [facility] Comment on above: Performed By: #### B [id number] ####[facility] [id number] [place], [place] [address]Na. Glenys Holly Microscopic examination of blood, culture Culture Observations: NO GROWTH AT 5 DAYS. Normal [facility] Comment on above: Performed By: #### B [id number] ####[facility] [id number] [place], [place] [address]GmRatna Holly CULTURE URINEon 05-05-2022 CULTURE URINE Culture Observations : LIGHT GROWTH OF MIXED GENITAL NIDA. NO POTENTIAL PATHOGENS SEEN. Normal [facility] Comment on above: Performed By: #### U RCX ####[facility] [id number] [place], [place] [address]JgDr. Glenys Holly Covid-19 PCR (CVDTB)on 04-12 SARS-CoV-2 (COVID-19) RNA KINZA+probe Ql (Unsp spec) Not detected Normal NOT DETECTED [facility] Comment on above: Result Comment: When [...] for this test is supported by the [employer] of Health and Human Service's declaration that [...] used). Performed By: #### C VDTBH #### [facility] [address] [place], [place] [address] Dr. Glenys Holly ECHOCARDIO M/2D COMPLETEon 1 07-05-2021 ECHOCARDIO M/2D COMPLETE Patient: JUDITH LAND Exam Date: 05/05/2022 : 1945 Gender:F Ordering : DR KAVON SAMS . Admission #: [id number] Family : Order #: [id number] CLICK HERE TO VIEW EXAM ECHOCARDIOGRAM REPORT [...] M.D. on 05/10/2022 at 13:12 Normal [facility] INFLUENZA A AND B AGon 05-05 INFLUANEGH SEE BELOW Normal [facility] Comment on above: Result Comment: Nega tive for Flu A protein angiten. Infection due to Flu A cannot be ruled out. Flu A angiten in the sample may be below the detection limit of the test. Performed By: #### M G, CMP, TSH, T7, BNP #### [facility] [address] [address] [address] Glenys Holly [facility] SEE BELOW Normal [facility] Comment on above: Result Comment: Nega tive for Flu B protein antigen. Infection due to Flu B cannot be ruled out. Flu B antigen in the sample may be below the detection limit of the test. Performed By: #### M G, CMP, TSH, T7, BNP #### [facility] [address] [address] [address] Glenys Holly INFLUENZA A AG Negative Normal NEGATIVE SEE COMMENT [facility] Comment on above: Performed By: #### M G, CMP, TSH, T7, BNP #### [facility] [address] [address] [address] Glenys Holly INFLUENZA B AG Negative Normal NEGATIVE SEE COMMENT [facility] Comment on above: Performed By: #### M G, CMP, TSH, T7, BNP #### [facility] [address] [address] [address] Glenys Holly INTERNAL CONTROLS Within Normal Limits Normal Wi thin Normal Limits [facility] Comment on above: Performed By: #### M G, CMP, TSH, T7, BNP #### [facility] [address] [address] [address] Glenys Holly LACTATE/LACTIC ACIDon 2021 Lactate [Moles/Vol] 5.2 mmol/L Critically high 0.4-1.9 [facility] Comment on above: Performed By: #### M G, CMP, TSH, T7, BNP #### [facility] [address] [address] [address] Glenys Holly Lactate [Moles/Vol] 4.8 mmol/L Critically high 0.4-1.9 [facility] Comment on above: Performed By: #### M G, CMP, TSH, T7, BNP #### [facility] [address] [place] [address] Dr. Glenys Holly LIPASEon 05-05-2022 Lipase [Catalytic activity/Vol] 64.0 U/L Critically low 73.0-393.0 [facility] Comment on above: Performed By: #### M G, CMP, TSH, T7, BNP #### [facility] [address] [address] [address] Glenys Holly PROF CHEM 8 (BAS METB)on Anion gap [Moles/Vol] 12.6 mmol/L Normal Th e [facility] Comment on above: Performed By: #### M G, CMP, TSH, T7, BNP #### [facility] [address] [address] [address] Glenys Holly Calcium [Mass/Vol] 9.6 mg/dL Normal 8.5-10.1 [facility] Comment on above: Performed By: #### M G, CMP, TSH, T7, BNP #### [facility] [address] [place] [address] Dr. Glenys Holly Chloride [Moles/Vol] 102 mmol/L Normal 98-107 [facility] Comment on above: Performed By: #### M G, CMP, TSH, T7, BNP #### [facility] [address] [address] [address] Glenys Holly CO2 [Moles/Vol] 26.3 mmol/L Normal 21.0-32.0 [facility] Comment on above: Performed By: #### M G, CMP, TSH, T7, BNP #### [facility] [address] [place] [address] Dr. Glenys Holly Creatinine [Mass/Vol] 1.00 mg/dL Normal 0.55-1.02 [facility] Comment on above: Performed By: #### M G, CMP, TSH, T7, BNP #### [facility] [address] [place] [address] Dr. Glenys Holly EGFR-AF FAROESE >60 Normal >=60 [facility] Comment on above: Performed By: #### M G, CMP, TSH, T7, BNP #### [facility] [address] [address] [address] Glenys Holly EGFR-NON AF FAROESE 54 mL/min/1.73m2 Critically low >=60 [facility] Comment on above: Performed By: #### M G, CMP, TSH, T7, BNP #### [facility] [address] [address] [address] Glenys Holly Glucose [Mass/Vol] 128 mg/dL Critically high 74-106 T [facility] Comment on above: Performed By: #### M G, CMP, TSH, T7, BNP #### [facility] [address] [place] [address] Dr. Glenys Holly Potassium [Moles/Vol] 2.9 mmol/L Critically low 3.5-5.1 [facility] Comment on above: Performed By: #### M G, CMP, TSH, T7, BNP #### [facility] [address] [place] [address] Dr. Glenys Holly Sodium [Moles/Vol] 138 mmol/L Normal 136-145 [facility] Comment on above: Performed By: #### M G, CMP, TSH, T7, BNP #### [facility] [address] [place] [address] Dr. Glenys Holly Urea nitrogen [Mass/Vol] 20.0 mg/dL Critically high 7.0-18.0 [facility] Comment on above: Performed By: #### M G, CMP, TSH, T7, BNP #### [facility] [address] [place] [address] Dr. Glenys Holly Urea nitrogen/Creatinine [Mass ratio] 20.0 mg/mg Normal [facility] Comment on above: Performed By: #### M G, CMP, TSH, T7, BNP #### [facility] [address] [place] [address] Dr. Glenys Holly T4on 05-05-2022 T4 [Mass/Vol] 7.40 ug/dL Normal 4.80-13.90 [facility] Comment on above: Performed By: #### M G, CMP, TSH, T7, BNP #### [facility] [address] [place] [address] Dr. Glenys Holly TSHon 05-05-2022 TSH 0.198 uIU/mL Critically low 0.358-3.740 [facility] Comment on above: Performed By: #### M G, CMP, TSH, T7, BNP #### [facility] [address] [address] [address] Glenys Holly UA RANDOM W/MICROSCOPICon BACTERIA NONE SEEN Normal NONE SEEN [facility] Comment on above: Performed By: #### M G, CMP, TSH, T7, BNP #### [facility] [address] [address] [address] Glenys Holly Bilirubin Ql (U) Negative Normal NEGATIVE [facility] Comment on above: Performed By: #### M G, CMP, TSH, T7, BNP #### [facility] [address] [address] [address] Glenys Holly CAST NONE SEEN Normal NONE SEEN [facility] Comment on above: Performed By: #### M G, CMP, TSH, T7, BNP #### [facility] [address] [address] [address] Glenys Holly Clarity (U) SL CLOUDY Abnormal CLEAR [facility] Comment on above: Performed By: #### M G, CMP, TSH, T7, BNP #### [facility] [address] [address] [address] Glenys Holly Color (U) LT. YELLOW Normal YELLOW [facility] Comment on above: Performed By: #### M G, CMP, TSH, T7, BNP #### [facility] [address] [address] [address] Glenys Holly Crystals LM Nom (Urine sed) NONE SEEN Normal NONE SEEN [facility] Comment on above: Performed By: #### M G, CMP, TSH, T7, BNP #### [facility] [address] [address] [address] Glenys Holly Epithelial cells LM Ql (Urine sed) FEW Abnormal NONE SEEN /RARE [facility] Comment on above: Performed By: #### M G, CMP, TSH, T7, BNP #### [facility] [address] [address] [address] Glenys Holly Glucose Ql (U) Negative Normal NEGATIVE [facility] Comment on above: Performed By: #### M G, CMP, TSH, T7, BNP #### [facility] [address] [place] [address] Dr. Glenys Holly Hemoglobin Ql (U) MODERATE Abnormal NEGATIVE [facility] Comment on above: Performed By: #### M G, CMP, TSH, T7, BNP #### [facility] [address] [place] [address] Dr. Glenys Holly Ketones Ql (U) Negative Normal NEGATIVE [facility] Comment on above: Performed By: #### M G, CMP, TSH, T7, BNP #### [facility] [address] [place] [address] Dr. Glenys Holly LEUKOCYTES Negative Normal NEGATIVE [facility] Comment on above: Performed By: #### M G, CMP, TSH, T7, BNP #### [facility] [address] [place] [address] Dr. Glenys Holly MUCOUS NONE SEEN Normal NONE SEEN [facility] Comment on above: Performed By: #### M G, CMP, TSH, T7, BNP #### [facility] [address] [place] [address] Dr. Glenys Holly Nitrite Ql (U) Negative Normal NEGATIVE [facility] Comment on above: Performed By: #### M G, CMP, TSH, T7, BNP #### [facility] [address] [place] [address] Dr. Glenys Holly pH (U) 6.0 [pH] Normal 5-9 [facility] Comment on above: Performed By: #### M G, CMP, TSH, T7, BNP #### [facility] [address] [place] [address] Dr. Glenys Holly RBC 2-5 Abnormal 0-2 [facility] Comment on above: Performed By: #### M G, CMP, TSH, T7, BNP #### [facility] [address] [place] [address] Dr. Glenys Holly SPEC GRAVITY 1.010 Normal 1.005-<=1.[address] [facility] Comment on above: Performed By: #### M G, CMP, TSH, T7, BNP #### [facility] [address] [address] [address] Glenys Holly UA PROTEIN TRACE Normal NEGATIVE/ TRACE [facility] Comment on above: Performed By: #### M G, CMP, TSH, T7, BNP #### [facility] [address] [address] [address] Glenys Holly Urobilinogen Qn (U) 0.2 {Phoebe'U}/dL Normal 0.2 - 1. 0 [facility] Comment on above: Performed By: #### M G, CMP, TSH, T7, BNP #### [facility] [address] [address] [address] Glenys Holly WBC NONE SEEN Normal NONE SEEN [facility] Comment on above: Performed By: #### M G, CMP, TSH, T7, BNP #### [facility] [address] [address] [address] Glenys Holly XR CHEST 1 Von [...] SUPA LOZANO Date: 2022-05-05 07:41 Normal [facility] CULTURE URINEon 03-30-2022 CULTURE URINE Culture Observations : GREATER THAN 4 ORGANISMS PRESENT. PLEASE RESUBMIT CLEAN CATCH MID-STREAM URINE IF CLINICALLY INDICATED. Normal [facility] Comment on above: Performed By: #### U RCX ####[facility] [id number] [id number][address] Glenys Holly CBC W MANUAL DIFFon 03-29-20 22 ATYPICAL LYMPH # Normal [facility] Comment on above: Performed By: #### M G, CMP, TSH, T7, BNP #### [facility] [address] [address] [address] Glenys Holly ATYPICAL LYMPH % Normal [facility] Comment on above: Performed By: #### M G, CMP, TSH, T7, BNP #### [facility] [address] [place] [address] Dr. Glenys Holly BAND # Normal 0.0-0.3 [facility] Comment on above: Performed By: #### M G, CMP, TSH, T7, BNP #### [facility] [address] [place] [address] Dr. Glenys Holly BAND % Normal 0-5 [facility] Comment on above: Performed By: #### M G, CMP, TSH, T7, BNP #### [facility] [address] [place] [address] Dr. Glenys Holly BASOM # 0.20 103/ul Critically high 0.00-0.10 [facility] Comment on above: Performed By: #### M G, CMP, TSH, T7, BNP #### [facility] [address] [place] [address] Dr. Glenys Holly BASOM % 1.0 % Normal 0.2-2.0 [facility] Comment on above: Performed By: #### M G, CMP, TSH, T7, BNP #### [facility] [address] [place] [address] Dr. Glenys Holly BLAST # Normal [facility] Comment on above: Performed By: #### M G, CMP, TSH, T7, BNP #### [facility] [address] [place] [address] Dr. Glenys Holly BLAST % Normal [facility] Comment on above: Performed By: #### M G, CMP, TSH, T7, BNP #### [facility] [address] [place] [address] Dr. Glenys Holly CORRECTED WBC Normal 4.0-11.0 [facility] Comment on above: Performed By: #### M G, CMP, TSH, T7, BNP #### [facility] [address] [place] [address] Dr. Glenys Holly EOS # 0.00 103/ul Normal 0.00-0.70 [facility] Comment on above: Performed By: #### M G, CMP, TSH, T7, BNP #### [facility] [address] [address] [address] Glenys Holly EOS% 0.0 % Critically low 0.9-7.0 [facility] Comment on above: Performed By: #### M G, CMP, TSH, T7, BNP #### [facility] [address] [place] [address] Dr. Glenys Holly HCT 45.0 % Normal 36.0-48.0 [facility] Comment on above: Performed By: #### M G, CMP, TSH, T7, BNP #### [facility] [address] [place] [address] Dr. Glenys Holly HGB 15.2 g/dl Normal 12.0-16.0 [facility] Comment on above: Performed By: #### M G, CMP, TSH, T7, BNP #### [facility] [address] [place] [address] Dr. Glenys Holly LYMPHM # 2.80 103/ul Normal 1.20-3.80 [facility] Comment on above: Performed By: #### M G, CMP, TSH, T7, BNP #### [facility] [address] [place] [address] Dr. Glenys Holly LYMPHM% 14.0 % Critically low 20.5-60.0 [facility] Comment on above: Performed By: #### M G, CMP, TSH, T7, BNP #### [facility] [address] [place] [address] Dr. Glenys Holly MCH 30.6 pg Normal 26.7-34.0 [facility] Comment on above: Performed By: #### M G, CMP, TSH, T7, BNP #### [facility] [address] [place] [address] Dr. Glenys Holly MCHC 33.8 g/dl Normal 29.9-35.2 [facility] Comment on above: Performed By: #### M G, CMP, TSH, T7, BNP #### [facility] [address] [place] [address] Dr. Glenys Holly MCV 90.7 fL Normal 81.0-99.0 [facility] Comment on above: Performed By: #### M G, CMP, TSH, T7, BNP #### [facility] [address] [place] [address] Dr. Glenys Holly METAMYELOCYTE # Normal [facility] Comment on above: Performed By: #### M G, CMP, TSH, T7, BNP #### [facility] [address] [place] [address] Dr. Glenys Holly METAMYELOCYTE % Normal [facility] Comment on above: Performed By: #### M G, CMP, TSH, T7, BNP #### [facility] [address] [place] [address] Dr. Glenys Holly MONOM# 2.40 103/ul Critically high 0.30-0.80 [facility] Comment on above: Performed By: #### M G, CMP, TSH, T7, BNP #### [facility] [address] [place] [address] Dr. Glenys Holly MONOM% 12.0 % Normal 1.7-12.0 [facility] Comment on above: Performed By: #### M G, CMP, TSH, T7, BNP #### [facility] [address] [place] [address] Dr. Glenys Holly MPV 11.5 fL Normal 9.5-13.5 [facility] Comment on above: Performed By: #### M G, CMP, TSH, T7, BNP #### [facility] [address] [place] [address] Dr. Glenys Holly MYELOCYTE # Normal [facility] Comment on above: Performed By: #### M G, CMP, TSH, T7, BNP #### [facility] [address] [place] [address] Dr. Glenys Holly MYELOCYTE % Normal [facility] Comment on above: Performed By: #### M G, CMP, TSH, T7, BNP #### [facility] [address] [place] [address] Dr. Glenys Holly NRBC Normal [facility] Comment on above: Performed By: #### M G, CMP, TSH, T7, BNP #### [facility] [address] [address] [address] Glenys Holly PLT 323 103/ul Normal 150-450 [facility] Comment on above: Performed By: #### M G, CMP, TSH, T7, BNP #### [facility] [address] [place] [address] Dr. Glenys Holly RBC 4.96 106/ul Normal 4.20-5.40 [facility] Comment on above: Performed By: #### M G, CMP, TSH, T7, BNP #### [facility] [address] [place] [address] Dr. Glenys Holly RDW 14.4 % Normal 11.0-15.0 [facility] Comment on above: Performed By: #### M G, CMP, TSH, T7, BNP #### [facility] [address] [place] [address] Dr. Glenys Holly SEG # 14.60 103/ul Critically high 1.40-6.50 [facility] Comment on above: Performed By: #### M G, CMP, TSH, T7, BNP #### [facility] [address] [place] [address] Dr. Glenys Holly SEG % 73.0 % Normal 43.0-75.0 [facility] Comment on above: Performed By: #### M G, CMP, TSH, T7, BNP #### [facility] [address] [place] [address] Dr. Glenys Holly WBC 20.0 103/ul Critically high 4.0-11.0 [facility] Comment on above: Performed By: #### M G, CMP, TSH, T7, BNP #### [facility] [address] [place] [address] ABD/PELV W CONon [...] RAMIRO SPENCER Date: 2022-03-29 11:27 Normal [facility] ER URINE PROFILEon 2 Bilirubin Ql (U) Negative Normal NEGATIVE [facility] Comment on above: Performed By: #### M G, CMP, TSH, T7, BNP #### [facility] [address] [address] [address] Glenys Holly Clarity (U) CLEAR Normal CLEAR [facility] Comment on above: Performed By: #### M G, CMP, TSH, T7, BNP #### [facility] [address] [address] [address] Glenys Holly Color (U) LT. YELLOW Normal YELLOW [facility] Comment on above: Performed By: #### M G, CMP, TSH, T7, BNP #### [facility] [address] [address] [address] Glenys Holly ERUAHD A micrscopic examina tion will be performed if indicated. Normal [facility] Comment on above: Performed By: #### M G, CMP, TSH, T7, BNP #### [facility] [address] [address] [address] Glenys Holly Glucose Ql (U) Negative Normal NEGATIVE [facility] Comment on above: Performed By: #### M G, CMP, TSH, T7, BNP #### [facility] [address] [address] [address] Glenys Holly Hemoglobin Ql (U) MODERATE Abnormal NEGATIVE [facility] Comment on above: Performed By: #### M G, CMP, TSH, T7, BNP #### [facility] [address] [address] [address] Glenys Holly Ketones Ql (U) 15 mg/dl Abnormal NEGATIVE [facility] Comment on above: Performed By: #### M G, CMP, TSH, T7, BNP #### [facility] [address] [address] [address] Glenys Holly LEUKOCYTES LARGE Abnormal NEGATIVE [facility] Comment on above: Performed By: #### M G, CMP, TSH, T7, BNP #### [facility] [address] [address] [address] Glenys Holly Nitrite Ql (U) Negative Normal NEGATIVE [facility] Comment on above: Performed By: #### M G, CMP, TSH, T7, BNP #### [facility] [address] [address] [address] Glenys Holly pH (U) 6.5 [pH] Normal 5-9 [facility] Comment on above: Performed By: #### M G, CMP, TSH, T7, BNP #### [facility] [address] [address] [address] Glenys Holly SPEC GRAVITY 1.015 Normal 1.005-<=1.[address] [facility] Comment on above: Performed By: #### M G, CMP, TSH, T7, BNP #### [facility] [address] [address] [address] Glenys Holly UA PROTEIN TRACE Normal NEGATIVE/ TRACE [facility] Comment on above: Performed By: #### M G, CMP, TSH, T7, BNP #### [facility] [address] [address] [address] Glenys Holly UR MICRO IND INDICATED Normal [facility] Comment on above: Performed By: #### M G, CMP, TSH, T7, BNP #### [facility] [address] [address] [address] Glenys Holly Urobilinogen Qn (U) 0.2 {Phoebe'U}/dL Normal 0.2 - 1. 0 [facility] Comment on above: Performed By: #### M G, CMP, TSH, T7, BNP #### [facility] [address] [place] [address] Dr. Glenys Holly LIPASEon 03-29-2022 Lipase [Catalytic activity/Vol] 62.0 U/L Critically low 73.0-393.0 [facility] Comment on above: Performed By: #### M G, CMP, TSH, T7, BNP #### [facility] [address] [place] [address] Dr. Glenys Holly PROF 14(COMP METB)on 022 Albumin [Mass/Vol] 3.7 g/dL Normal 3.4-5.0 [facility] Comment on above: Performed By: #### M G, CMP, TSH, T7, BNP #### [facility] [address] [place] [address] Dr. Glenys Holly Albumin/Globulin [Mass ratio] 1.2 {ratio} Normal [facility] Comment on above: Performed By: #### M G, CMP, TSH, T7, BNP #### [facility] [address] [place] [address] Dr. Glenys Holly ALP [Catalytic activity/Vol] 106 U/L Normal 46-116 [facility] Comment on above: Performed By: #### M G, CMP, TSH, T7, BNP #### [facility] [address] [place] [address] Dr. Glenys Holly ALT [Catalytic activity/Vol] 17 U/L Normal 14-59 [facility] Comment on above: Performed By: #### M G, CMP, TSH, T7, BNP #### [facility] [address] [address] [address] Glenys Holly Anion gap [Moles/Vol] 11.8 mmol/L Normal [facility] Comment on above: Performed By: #### M G, CMP, TSH, T7, BNP #### [facility] [address] [place] [address] Dr. Glenys Holly AST [Catalytic activity/Vol] 19 U/L Normal 15-37 [facility] Comment on above: Performed By: #### M G, CMP, TSH, T7, BNP #### [facility] [address] [place] [address] Dr. Glenys Holly Bilirubin [Mass/Vol] 0.8 mg/dL Normal 0.2-1.0 [facility] Comment on above: Performed By: #### M G, CMP, TSH, T7, BNP #### [facility] [address] [place] [address] Dr. Glenys Holly Calcium [Mass/Vol] 9.8 mg/dL Normal 8.5-10.1 [facility] Comment on above: Performed By: #### M G, CMP, TSH, T7, BNP #### [facility] [address] [place] [address] Dr. Glenys Holly Chloride [Moles/Vol] 101 mmol/L Normal 98-107 [facility] Comment on above: Performed By: #### M G, CMP, TSH, T7, BNP #### [facility] [address] [place] [address] Dr. Glenys Holly CO2 [Moles/Vol] 26.2 mmol/L Normal 21.0-32.0 [facility] Comment on above: Performed By: #### M G, CMP, TSH, T7, BNP #### [facility] [address] [place] [address] Dr. Glenys Holly Creatinine [Mass/Vol] 0.76 mg/dL Normal 0.55-1.02 [facility] Comment on above: Performed By: #### M G, CMP, TSH, T7, BNP #### [facility] [address] [address] [address] Glenys Holly EGFR-AF FAROESE >60 Normal >=60 [facility] Comment on above: Performed By: #### M G, CMP, TSH, T7, BNP #### [facility] [address] [address] [address] Glenys Holly EGFR-NON AF FAROESE >60 Normal >=60 [facility] Comment on above: Performed By: #### M G, CMP, TSH, T7, BNP #### [facility] [address] [address] [address] Glenys Holly Globulin (S) [Mass/Vol] 3.2 g/dL Normal [facility] Comment on above: Performed By: #### M G, CMP, TSH, T7, BNP #### [facility] [address] [address] [address] Glenys Holly Glucose [Mass/Vol] 103 mg/dL Normal 74-106 [facility] Comment on above: Performed By: #### M G, CMP, TSH, T7, BNP #### [facility] [address] [address] [address] Glenys Holly Potassium [Moles/Vol] 3.0 mmol/L Critically low 3.5-5.1 [facility] Comment on above: Performed By: #### M G, CMP, TSH, T7, BNP #### [facility] [address] [address] [address] Glenys Holly Protein [Mass/Vol] 6.9 g/dL Normal 6.4-8.2 [facility] Comment on above: Performed By: #### M G, CMP, TSH, T7, BNP #### [facility] [address] [address] [address] Glenys Holly Sodium [Moles/Vol] 136 mmol/L Normal 136-145 [facility] Comment on above: Performed By: #### M G, CMP, TSH, T7, BNP #### [facility] [address] [address] [address] Glenys Holly Urea nitrogen [Mass/Vol] 16.0 mg/dL Normal 7.0-18.0 [facility] Comment on above: Performed By: #### M G, CMP, TSH, T7, BNP #### [facility] [address] [place] [address] Dr. Glenys Holly Urea nitrogen/Creatinine [Mass ratio] 21.1 mg/mg Normal [facility] Comment on above: Performed By: #### M G, CMP, TSH, T7, BNP #### [facility] [address] [address] [address] Glenys Holly TROPONIN, HIGH SENSITIVITYon 03-29-2022 HSTROP 30.7 pg/mL Normal 4.0-51.3 [facility] Comment on above: Result Comment: CUT- OFF POINTS HAVE BEEN ESTABLISHED BASED ON THE FOURTH UNIVERSAL DEFINITIONS OF MYOCARDIAL INFARCTION. THE UPPER REFERENCE LIMIT (URL) OF TROPONIN, DEFINED THE 99TH PERCENTILE OF cTnI DISTRIBUTION IN A REFERENCE POPULATION, HAS BEEN CONFIRMED THE DECISION THRESHOLD FOR [place] DIAGNOSIS. Performed By: #### M G, CMP, TSH, T7, BNP #### [facility] [address] [place] [address] Dr. Glenys Holly URINE MICROSCOPIC ONLYon BACTERIA MODERATE Abnormal NONE SEEN [facility] Comment on above: Performed By: #### M G, CMP, TSH, T7, BNP #### [facility] [address] [place] [address] Dr. Glenys Holly Bacteria identified Cx Nom (U) INDICATED Normal [facility] Comment on above: Performed By: #### M G, CMP, TSH, T7, BNP #### [facility] [address] [place] [address] Dr. Glenys Holly CA OX CRYSTALS MODERATE Normal [facility] Comment on above: Performed By: #### M G, CMP, TSH, T7, BNP #### [facility] [address] [place] [address] Dr. Glenys Holly CAST NONE SEEN Normal NONE SEEN [facility] Comment on above: Performed By: #### M G, CMP, TSH, T7, BNP #### [facility] [address] [place] [address] Dr. Glenys Holly Crystals LM Nom (Urine sed) SEEN Abnormal NONE SEEN [facility] Comment on above: Performed By: #### M G, CMP, TSH, T7, BNP #### [facility] [address] [address] [address] Glenys Holly Epithelial cells LM Ql (Urine sed) FEW Abnormal NONE SEEN /RARE [facility] Comment on above: Performed By: #### M G, CMP, TSH, T7, BNP #### [facility] [address] [address] [address] Glenys Holly MUCOUS NONE SEEN Normal NONE SEEN [facility] Comment on above: Performed By: #### M G, CMP, TSH, T7, BNP #### [facility] [address] [address] [address] Glenys Holly RBC 5-10 Abnormal 0-2 [facility] Comment on above: Performed By: #### M G, CMP, TSH, T7, BNP #### [facility] [address] [address] [address] Glenys Holly WBC 20-50 Abnormal NONE SEEN [facility] Comment on above: Performed By: #### M G, CMP, TSH, T7, BNP #### [facility] [address] [address] [address] Glenys Holly XR ABD FLAT UP_PA [...] RAMIRO SPENCER Date: 2022-03-29 09:27 Normal [facility] CT HEAD WO CONon 12-27-2021 CT [...] RAMIRO SPENCER Date: 2021-12-27 12:48 Normal [facility] Discharge Summaryon 08-18-19 18 Discharge Summary [id number] Admitted: 08/11/2017 Discharged: 08/15/2017 Date of : 1945 Physician: Supa Branch M.D. DISCHARGE SUMMARYADMITTING DIAGNOSIS: Mechanical fall with [...] the outside facility.Upon arrival to the [facility], no other injuries were noted. The patientwas [...] 4-6 hours as needed for pain and [id number] mg b.i.d. for opioid related constipation.Electronicall y Signed by:Supa Branch M.D. 08/29/2017 12:01 P David G. Heidt, M.D. I personally saw this patient on the day of the encounter, performed thekey portion(s) of the service and participated in the management andconfirm the resident's documentation. Please note there may be anadditional personal documentation from me. Date Dict: 08/16/2017/10:11 A/Josh Palmer MDDate Trans: 08/17/2017 06:00 A/[id number] Normal [facility] BASIC METABOLIC PANELon 03-0 Calcium 8.8 mg/dL Normal 8.6-10.3 [facility] Comment on above: Order Comment: No: D o not add to previous draw Performed By: #### 0 0121, 56667 ####[facility] [facility] [address], [facility] Chloride 97 mmol/L Low 98-107 [facility] Comment on above: Order Comment: No: D o not add to previous draw Performed By: #### 0 0121, 37816 ####[facility] [facility] [address], [facility] CO2 33 mmol/L High 21-31 [facility] Comment on above: Order Comment: No: D o not add to previous draw Performed By: #### 0 0121, 88637 ####[facility] [facility] [address], [facility] Creatinine 0.75 mg/dL Normal 0.60-1.20 [facility] Comment on above: Order Comment: No: D o not add to previous draw Performed By: #### 0 0121, 40578 ####[facility] [facility] [place] [address], [facility] eGFR (black) mL/min/{1.73_m2} Normal >60 [facility] Comment on above: Order Comment: No: D o not add to previous draw Result Comment: Calc ulation may not be valid for patients over 70 years Performed By: #### 0 0121, 50427 ####[facility] [address] eGFR (non-black) mL/min/{1.73_m2} Normal >60 [facility] Comment on above: Order Comment: No: D o not add to previous draw Result Comment: Calc ulation may not be valid for patients over 70 years Performed By: #### 0 0121, 48292 ####[facility] [place] [address], [facility] Glucose mass conc 91 mg/dL Normal 70-100 [facility] Comment on above: Order Comment: No: D o not add to previous draw Performed By: #### 0 0121, 14967 ####[facility] [place] [address], [facility] Potassium molar conc 2.8 mmol/L Low 3.5-5.1 [facility] Comment on above: Order Comment: No: D o not add to previous draw Performed By: #### 0 0121, 77457 ####[facility] [place] [address], [facility] Sodium 137 mmol/L Normal 136-145 [facility] Comment on above: Order Comment: No: D o not add to previous draw Performed By: #### 0 0121, 48505 ####[facility] [place] [address], [facility] Urea nitrogen 13 mg/dL Normal 7-25 [facility] Comment on above: Order Comment: No: D o not add to previous draw Performed By: #### 0 0121, 61825 ####[facility] [place] [address], [facility] CBC COMPLETE BLOOD COUNTon 0 - Erythrocyte distribution width Auto Ratio (RBC) 14.6 % Normal 11.5-15.0 [facility] Comment on above: Order Comment: No: D o not add to previous draw Performed By: #### 5 6101, 11152 ####[facility] [facility].[address] Erythrocytes (RBC) 4.05 10*6/uL Normal 3.80-5.00 [facility] Comment on above: Order Comment: No: D o not add to previous draw Performed By: #### 5 6100, 05267 ####[facility] [facility].[address] Erythrocytes (RBC) 0 % Normal 0-0 [facility] Comment on above: Order Comment: No: D o not add to previous draw Performed By: #### 5 6100, 97788 ####[address] Hematocrit (HCT) 36.8 % Normal 36.0-45.0 [facility] Comment on above: Order Comment: No: D o not add to previous draw Performed By: #### 5 6100, 81053 ####[facility] [facility].[address] Hemoglobin mass conc (Bld) 12.3 g/dL Normal 12.0-15.0 [facility] Comment on above: Order Comment: No: D o not add to previous draw Performed By: #### 5 6100, 09603 ####[address] [facility].[address] MCH 30.4 pg Normal 27.0-33.0 [facility] Comment on above: Order Comment: No: D o not add to previous draw Performed By: #### 5 6100, 99419 ####[facility] [facility].[address] MCHC mass conc (RBC) 33.4 g/dL Normal 32.0-35.0 [facility] Comment on above: Order Comment: No: D o not add to previous draw Performed By: #### 5 6100, 60065 ####[facility] MCV 90.9 fL Normal 82.0-98.0 [facility] Comment on above: Order Comment: No: D o not add to previous draw Performed By: #### 5 6101, 13573 ####[address] PLAT CNT 196 10*3/uL Normal 150-400 [facility] Comment on above: Order Comment: No: D o not add to previous draw Performed By: #### 5 6101, 51450 ####[address] [address] [address] WBC (Leukocytes) 11.0 10*3/uL High 4.0-10.6 [facility] Comment on above: Order Comment: No: D o not add to previous draw Performed By: #### 5 6101, 38795 ####[address] PORTABLE CHEST 1 VIEWon PORTABLE CHEST 1 VIEW [facility] [address] [place] [address] Sera ent Name: JUDITH LAND : 1945Sex: FAge: Race: WhiteMRN: [id number]. Location: [id number] Status: IVisit #: [id number] Date: 08/15/2017 7:05:00 AMCompleted Date: 08/15/2017 07:54 AMRequesting Provider: JOSH PALMER Attending Provider: ALEXANDER CABALLERO Report Copy To: Signs & Symptoms: O2 DesaturationHistory: Patient history not availableComments: R/O EffusionExam: PORTABLE CHEST 1 VIEWAccession #: [id number] ===PORTABLE CHEST 1 VIEW 08/15/2017 7:54 AM [...] lower lung pneumonia cannot be excluded Approved by:Sae Mar on 08/15/2017 8:20 AM EST. I, Nina Beaver, have reviewed the images and report and concur with these findings. Electronically signed by:Nina Beaver. Transcribed by: [email or web address], User Resident: SAE MARElectronically Signed by: NINA BEAVER @ 08/15/2017 10:25 AMI personally read this/these film(s) with this resident Normal [facility] Comment on above: Order Comment: R/O E ffusion BASIC METABOLIC PANELon 03-0 Calcium 8.6 mg/dL Normal 8.6-10.3 [facility] Comment on above: Order Comment: No: D o not add to previous draw Performed By: #### 0 0121, 15853 ####[facility] [place] [address], [facility] Chloride 103 mmol/L Normal 98-107 [facility] Comment on above: Order Comment: No: D o not add to previous draw Performed By: #### 0 0121, 17598 ####[facility] [facility] [address], [facility] CO2 30 mmol/L Normal 21-31 [facility] Comment on above: Order Comment: No: D o not add to previous draw Performed By: #### 0 0121, 06690 ####[facility] [facility] [address], [facility] Creatinine 0.60 mg/dL Normal 0.60-1.20 [facility] Comment on above: Order Comment: No: D o not add to previous draw Performed By: #### 0 0121, 40425 ####[facility] [facility] [address], [facility] eGFR (black) mL/min/{1.73_m2} Normal >60 [facility] Comment on above: Order Comment: No: D o not add to previous draw Result Comment: Calc ulation may not be valid for patients over 70 years Performed By: #### 0 0121, 55763 ####[facility] [facility] [address], [facility] eGFR (non-black) mL/min/{1.73_m2} Normal >60 [facility] Comment on above: Order Comment: No: D o not add to previous draw Result Comment: Calc ulation may not be valid for patients over 70 years Performed By: #### 0 0121, 07717 ####[facility] [facility] [address], [facility] Glucose mass conc 81 mg/dL Normal 70-100 [facility] Comment on above: Order Comment: No: D o not add to previous draw Performed By: #### 0 0121, 15292 ####[facility] [facility] [address], [facility] Potassium molar conc 3.0 mmol/L Low 3.5-5.1 [facility] Comment on above: Order Comment: No: D o not add to previous draw Performed By: #### 0 0121, 30186 ####[facility] Sodium 138 mmol/L Normal 136-145 [facility] Comment on above: Order Comment: No: D o not add to previous draw Performed By: #### 0 0121, 98714 ####[facility] [facility].[address] Urea nitrogen 12 mg/dL Normal 7-25 [facility] Comment on above: Order Comment: No: D o not add to previous draw Performed By: #### 0 0121, 53583 ####[facility] [facility].[address] CBC COMPLETE BLOOD COUNTon 0 08-14-2017 Erythrocyte distribution width Auto Ratio (RBC) 14.9 % Normal 11.5-15.0 [facility] Comment on above: Order Comment: No: D o not add to previous draw Performed By: #### 0 0121, 71115 ####[facility] [facility].[address] Erythrocytes (RBC) 3.80 10*6/uL Normal 3.80-5.00 [facility] Comment on above: Order Comment: No: D o not add to previous draw Performed By: #### 0 0121, 46693 ####[facility] [facility].[address] Erythrocytes (RBC) 0 % Normal 0-0 [facility] Comment on above: Order Comment: No: D o not add to previous draw Performed By: #### 0 0121, 44639 ####[facility] [facility].[address] Hematocrit (HCT) 34.3 % Low 36.0-45.0 [facility] Comment on above: Order Comment: No: D o not add to previous draw Performed By: #### 0 0121, 84230 ####[facility] Hemoglobin mass conc (Bld) 11.7 g/dL Low 12.0-15.0 [facility] Comment on above: Order Comment: No: D o not add to previous draw Performed By: #### 0 0121, 30916 ####[facility] MCH 30.8 pg Normal 27.0-33.0 [facility] Comment on above: Order Comment: No: D o not add to previous draw Performed By: #### 0 0121, 58882 ####[facility] MCHC mass conc (RBC) 34.1 g/dL Normal 32.0-35.0 [facility] Comment on above: Order Comment: No: D o not add to previous draw Performed By: #### 0 0121, 66883 ####[facility] MCV 90.3 fL Normal 82.0-98.0 [facility] Comment on above: Order Comment: No: D o not add to previous draw Performed By: #### 0 0121, 01694 ####[facility] PLAT CNT 134 10*3/uL Low 150-400 [facility] Comment on above: Order Comment: No: D o not add to previous draw Performed By: #### 0 0121, 28809 ####[facility] WBC (Leukocytes) 11.5 10*3/uL High 4.0-10.6 [facility] Comment on above: Order Comment: No: D o not add to previous draw Performed By: #### 0 0121, 30724 ####[facility] [place] [address], [facility] MAGNESIUM BLOODon 08-14-2017 Magnesium 1.9 mg/dL Normal 1.9-2.7 [facility] Comment on above: Order Comment: No: D o not add to previous draw Performed By: #### 0 0121, 21005 ####[address] [address], [facility] PHOSPHORUS BLOODon 8 Phosphate 2.5 mg/dL Normal 2.5-5.0 [facility] Comment on above: Order Comment: No: D o not add to previous draw Performed By: #### 0 0121, 83635 ####[address] [place] [address] PORTABLE CHEST 1 VIEWon PORTABLE CHEST 1 VIEW [facility] Ebsreehin[address] [place] [address] Sera ent Name: JUDITH LAND : 1945Sex: FAge: Race: WhiteMRN: [id number]. Location: [id number] Status: IVisit #: [id number] Date: 08/14/2017 8:00:00 AMCompleted Date: 08/14/2017 08:34 AMRequesting Provider: JOSH PALMER Attending Provider: ALEXANDER CABALLERO Report Copy To: Signs & Symptoms: O2 DesaturationHistory: Patient history not availableComments: R/O AtelectasisExam: PORTABLE CHEST 1 VIEWAccession #: [id number] ===PORTABLE CHEST 1 VIEW 08/14/2017 8:34 AM [...] hemidiaphragm. Underlying pneumonia is not excluded. Approved by:Sae Mar on 08/14/2017 9:09 AM EST. I, Yeimi Nascimento, have reviewed the images and report and concur with these findings. Electronically signed by:Yeimi Nascimento. Transcribed by: [email or web address], User Resident: SAE MARElectronically Signed by: YEIMI NASCIMENTO @ 08/14/2017 09:18 PMI personally read this/these film(s) with this resident Normal [facility] Comment on above: Order Comment: R/O A telectasis BASIC METABOLIC PANELon 03-0 Calcium 8.4 mg/dL Low 8.6-10.3 [facility] Comment on above: Order Comment: No: D o not add to previous draw Performed By: #### 0 0121, 67760 ####[facility] [place] [address], [facility] Chloride 109 mmol/L High 98-107 [facility] Comment on above: Order Comment: No: D o not add to previous draw Performed By: #### 0 0121, 96495 ####[facility] [place] [address], [facility] CO2 30 mmol/L Normal 21-31 [facility] Comment on above: Order Comment: No: D o not add to previous draw Performed By: #### 0 0121, 91720 ####[facility] [place] [address], [facility] Creatinine 0.62 mg/dL Normal 0.60-1.20 [facility] Comment on above: Order Comment: No: D o not add to previous draw Performed By: #### 0 0121, 47217 ####[facility] [place] [address], [facility] eGFR (black) mL/min/{1.73_m2} Normal >60 [facility] Comment on above: Order Comment: No: D o not add to previous draw Result Comment: Calc ulation may not be valid for patients over 70 years Performed By: #### 0 0121, 56106 ####[facility] [facility] [place] [address], [facility] eGFR (non-black) mL/min/{1.73_m2} Normal >60 [facility] Comment on above: Order Comment: No: D o not add to previous draw Result Comment: Calc ulation may not be valid for patients over 70 years Performed By: #### 0 0121, 58560 ####[facility] [facility] [place] [address], [facility] Glucose mass conc 99 mg/dL Normal 70-100 [facility] Comment on above: Order Comment: No: D o not add to previous draw Performed By: #### 0 0121, [id number] ####[facility] [place] [address], [facility] Potassium molar conc 3.2 mmol/L Low 3.5-5.1 [facility] Comment on above: Order Comment: No: D o not add to previous draw Performed By: #### 0 0121, 93378 ####[facility] [place] [address], [facility] Sodium 143 mmol/L Normal 136-145 [facility] Comment on above: Order Comment: No: D o not add to previous draw Performed By: #### 0 0121, 84444 ####[facility] Urea nitrogen 14 mg/dL Normal 7-25 [facility] Comment on above: Order Comment: No: D o not add to previous draw Performed By: #### 0 0121, 56000 ####[facility] CBC COMPLETE BLOOD COUNTon 0 - Erythrocyte distribution width Auto Ratio (RBC) 15.9 % High 11.5-15.0 [facility] Comment on above: Order Comment: No: D o not add to previous draw Performed By: #### 0 0121, 80646 ####[facility] Erythrocytes (RBC) 0 % Normal 0-0 [facility] Comment on above: Order Comment: No: D o not add to previous draw Performed By: #### 0 0121, 27458 ####[facility] Erythrocytes (RBC) 3.76 10*6/uL Low 3.80-5.00 [facility] Comment on above: Order Comment: No: D o not add to previous draw Performed By: #### 0 0121, 36380 ####[facility] Hematocrit (HCT) 34.3 % Low 36.0-45.0 [facility] Comment on above: Order Comment: No: D o not add to previous draw Performed By: #### 0 0121, 07232 ####[facility] Hemoglobin mass conc (Bld) 11.4 g/dL Low 12.0-15.0 [facility] Comment on above: Order Comment: No: D o not add to previous draw Performed By: #### 0 0121, 02836 ####[facility] MCH 30.3 pg Normal 27.0-33.0 [facility] Comment on above: Order Comment: No: D o not add to previous draw Performed By: #### 0 0121, 06232 ####[facility] [facility].[address] MCHC mass conc (RBC) 33.2 g/dL Normal 32.0-35.0 [facility] Comment on above: Order Comment: No: D o not add to previous draw Performed By: #### 0 0121, 36487 ####[facility] MCV 91.2 fL Normal 82.0-98.0 [facility] Comment on above: Order Comment: No: D o not add to previous draw Performed By: #### 0 0121, 37083 ####[facility] PLAT CNT 95 10*3/uL Low 150-400 [facility] Comment on above: Order Comment: No: D o not add to previous draw Performed By: #### 0 0121, 25505 ####[facility] WBC (Leukocytes) 9.1 10*3/uL Normal 4.0-10.6 [facility] Comment on above: Order Comment: No: D o not add to previous draw Performed By: #### 0 0121, 84284 ####[facility] MAGNESIUM BLOODon 08-13-2017 Magnesium 1.8 mg/dL Low 1.9-2.7 [facility] Comment on above: Order Comment: No: D o not add to previous draw Performed By: #### 0 0121, 89844 ####[facility] PHOSPHORUS BLOODon 8 Phosphate 1.9 mg/dL Low 2.5-5.0 [facility] Comment on above: Order Comment: No: D o not add to previous draw Performed By: #### 0 0121, 50633 ####[facility] BASIC METABOLIC PANELon Calcium 8.4 mg/dL Low 8.6-10.3 [facility] Comment on above: Order Comment: No: D o not add to previous draw Performed By: #### 0 0121, 64644 ####[facility]3000 [facility].[address] Chloride 113 mmol/L High 98-107 [facility] Comment on above: Order Comment: No: D o not add to previous draw Performed By: #### 0 0121, 20529 ####[facility] [facility].[address] CO2 25 mmol/L Normal 21-31 [facility] Comment on above: Order Comment: No: D o not add to previous draw Performed By: #### 0 0121, 32336 ####[facility] Creatinine 0.75 mg/dL Normal 0.60-1.20 [facility] Comment on above: Order Comment: No: D o not add to previous draw Performed By: #### 0 0121, 46860 ####[facility]3000 [facility].[address] eGFR (black) mL/min/{1.73_m2} Normal >60 [facility] Comment on above: Order Comment: No: D o not add to previous draw Result Comment: Calc ulation may not be valid for patients over 70 years Performed By: #### 0 0121, 98670 ####[facility] eGFR (non-black) mL/min/{1.73_m2} Normal >60 [facility] Comment on above: Order Comment: No: D o not add to previous draw Result Comment: Calc ulation may not be valid for patients over 70 years Performed By: #### 0 0121, 94619 ####[facility] Glucose mass conc 116 mg/dL High 70-100 [facility] Comment on above: Order Comment: No: D o not add to previous draw Performed By: #### 0 0121, 02899 ####[facility] [facility].[address] Potassium molar conc 3.6 mmol/L Normal 3.5-5.1 [facility] Comment on above: Order Comment: No: D o not add to previous draw Performed By: #### 0 0121, 89308 ####[facility] [facility].[address] Sodium 144 mmol/L Normal 136-145 [facility] Comment on above: Order Comment: No: D o not add to previous draw Performed By: #### 0 0121, 03486 ####[facility] [facility].[address] Urea nitrogen 16 mg/dL Normal 7-25 [facility] Comment on above: Order Comment: No: D o not add to previous draw Performed By: #### 0 0121, 09728 ####[facility] [facility].[address] CBC COMPLETE BLOOD COUNTon 0 - Erythrocyte distribution width Auto Ratio (RBC) 16.3 % High 11.5-15.0 [facility] Comment on above: Order Comment: No: D o not add to previous draw Performed By: #### 0 0121, 30697 ####[facility] [facility].[address] Erythrocytes (RBC) 4.15 10*6/uL Normal 3.80-5.00 [facility] Comment on above: Order Comment: No: D o not add to previous draw Performed By: #### 0 0121, 04738 ####[facility] [facility].[address] Erythrocytes (RBC) 0 % Normal 0-0 [facility] Comment on above: Order Comment: No: D o not add to previous draw Performed By: #### 0 0121, 52309 ####[facility] [facility].[address] Hematocrit (HCT) 37.6 % Normal 36.0-45.0 [facility] Comment on above: Order Comment: No: D o not add to previous draw Performed By: #### 0 0121, 41807 ####[facility] [facility].[address] Hemoglobin mass conc (Bld) 12.5 g/dL Normal 12.0-15.0 [facility] Comment on above: Order Comment: No: D o not add to previous draw Performed By: #### 0 0121, 50735 ####[facility] [facility].[address] MCH 30.1 pg Normal 27.0-33.0 [facility] Comment on above: Order Comment: No: D o not add to previous draw Performed By: #### 0 0121, 86615 ####[facility] MCHC mass conc (RBC) 33.2 g/dL Normal 32.0-35.0 [facility] Comment on above: Order Comment: No: D o not add to previous draw Performed By: #### 0 0121, 97817 ####[facility] MCV 90.6 fL Normal 82.0-98.0 [facility] Comment on above: Order Comment: No: D o not add to previous draw Performed By: #### 0 0121, 80484 ####[facility]3000 [facility].[address] PLAT CNT 89 10*3/uL Low 150-400 [facility] Comment on above: Order Comment: No: D o not add to previous draw Performed By: #### 0 0121, 27353 ####[facility] WBC (Leukocytes) 13.5 10*3/uL High 4.0-10.6 [facility] Comment on above: Order Comment: No: D o not add to previous draw Performed By: #### 0 0121, 47045 ####[facility] [facility].[address] HEMATOCRITon 08-12-2017 Hematocrit (HCT) 37.6 % Normal 36.0-45.0 [facility] Comment on above: Order Comment: No: D o not add to previous draw Performed By: #### 0 0121, 89750 ####[facility]3000 [facility].[address] HEMOGLOBINon 08-12-2017 Hemoglobin mass conc (Bld) 12.6 g/dL Normal 12.0-15.0 [facility] Comment on above: Order Comment: No: D o not add to previous drawLAB DRAW NOW - PER CECY MCELROY Performed By: #### 0 0121, 25164 ####[facility] MAGNESIUM BLOODon 08-12-2017 Magnesium 1.9 mg/dL Normal 1.9-2.7 [facility] Comment on above: Order Comment: No: D o not add to previous draw Performed By: #### 0 0121, 07446 ####[facility] [place], [place] [id number] [place] [address] PHOSPHORUS BLOODon 8 Phosphate 2.1 mg/dL Low 2.5-5.0 [facility] Comment on above: Order Comment: No: D o not add to previous draw Performed By: #### 0 0121, 30405 ####[facility] [place], [place] [id number] [place] [address] PORTABLE CHEST 1 VIEWon PORTABLE CHEST 1 VIEW [facility] [place], [place] [address] Sera ent Name: JUDITH LAND : 1945Sex: FAge: Race: WhiteMRN: [id number]. Location: [id number] Status: IVisit #: [id number] Date: 08/12/2017 7:00:00 AMCompleted Date: 08/12/2017 09:16 AMRequesting Provider: SHANON HERNANDEZ Attending Provider: ALEXANDER CABALLERO Report Copy To: Signs & Symptoms: O2 DesaturationHistory: Patient history not availableComments: R/O AtelectasisExam: PORTABLE CHEST 1 VIEWAccession #: [id number] ===PORTABLE CHEST 1 VIEW 08/12/2017 9:16 AM [...] Taylor on 08/12/2017 11:08 AM EST. I, Yeimi Nascimento, have reviewed the images and report and concur with these findings. Electronically signed by:Yeimi Nascimento. Transcribed by: [email or web address], User Resident: [email or web address] TAYLORElectronically Signed by: YEIMI NASCIMENTO @ 08/12/2017 12:27 PMI personally read this/these film(s) with this resident Normal [facility] Comment on above: Order Comment: R/O A telectasis ALCOHOLon 08-11-2017 Ethanol NONE DETECTED Normal [facility] Comment on above: Result Comment: Divi de by 1000 to convert mg/dL to percent. Example: 100mg/dL = 0.1%. Performed By: #### 1 53, ####[facility] [facility].[address] APTTon 08-11-2017 aPTT 42.8 s High 25.0-35.0 [facility] Comment on above: Order Comment: [...] THIS PURPOSE. Performed By: #### 1 53, ####[facility] [facility].[address] aPTT 27.2 s Normal 25.0-35.0 [facility] Comment on above: Result [...] THIS PURPOSE. Performed By: #### 5 6101, 72387 ####[facility] ARTERIAL BLOOD GAS WITH ICAo n 08-11-2017 BASE EXCESS -7 mmol/L Low -2-2 [facility] Comment on above: Performed By: #### 1 53, ####[facility] Bicarbonate (HCO3) 18 mmol/L Low 23-27 [facility] Comment on above: Performed By: #### 1 53, ####[facility] [facility].[address] CO2 34 mmHg Low 35-45 [facility] Comment on above: Performed By: #### 1 53, ####[facility] DELIVERY SYSTEMS MV Normal [facility] Comment on above: Performed By: #### 1 53, ####[facility] [facility] [place] [address], [facility] FIO2 40 % Normal 21-100 [facility] Comment on above: Performed By: #### 1 53, ####[facility] IONIZED CALCIUM 1.13 mmol/L Normal 1.13-1.32 [facility] Comment on above: Performed By: #### 1 ####[facility] [place] [address], [place] MIN VOLUME 7.2 Normal [facility] Comment on above: Performed By: #### 1 ####[facility] [place] [address], [place] MODALITY AC Normal [facility] Comment on above: Performed By: #### 1 ####[facility] [place] [address], [place] O2 saturation 95.5 % Normal 94.0-97.0 [facility] Comment on above: Performed By: #### 1 ####[facility] [place] [address], [place] Oxygen in arterial blood 161 mm[Hg] Critically high 75-100 [facility] Comment on above: Performed By: #### 1 ####[facility] [place] [address], [place] PEEP 5.0 CMH20 Normal [facility] Comment on above: Performed By: #### 1 ####[facility] [place] [address], [place] PF RATIO 403 mmHg High 50-400 [facility] Comment on above: Performed By: #### 1 ####[facility] [place] [address], [place] pH of blood 7.33 [pH] Low 7.35-7.45 [facility] Comment on above: Performed By: #### 1 ####[facility] [place] [address], [place] Respiratory rate 16 /min Normal [facility] Comment on above: Performed By: #### 1 53, ####[facility] [place] [address], [facility] TIDAL VOLUME (VT) CC 450 Normal [facility] Comment on above: Performed By: #### 1 53, ####[facility] [place] [address], [facility] BASE EXCESS -9 mmol/L Low -2-2 [facility] Comment on above: Order Comment: RESUL TS CHECKED AND CALLED. ACCURATELY READ BACK BY DAT Performed By: #### 1 53, ####[facility] [place] [address], [facility] Bicarbonate (HCO3) 18 mmol/L Low 23-27 [facility] Comment on above: Order Comment: RESUL TS CHECKED AND CALLED. ACCURATELY READ BACK BY DAT Performed By: #### 1 53, ####[facility] [place] [address], [facility] CO2 44 mmHg Normal 35-45 [facility] Comment on above: Order Comment: RESUL TS CHECKED AND CALLED. ACCURATELY READ BACK BY DAT Performed By: #### 1 53, ####[facility] [place] [address], [facility] IONIZED CALCIUM 1.05 mmol/L Low 1.13-1.32 [facility] Comment on above: Order Comment: RESUL TS CHECKED AND CALLED. ACCURATELY READ BACK BY DAT Performed By: #### 1 53, ####[facility] [place] [address], [facility] O2 saturation 96.9 % Normal 94.0-97.0 [facility] Comment on above: Order Comment: RESUL TS CHECKED AND CALLED. ACCURATELY READ BACK BY DAT Performed By: #### 1 53, ####[facility] [place] [address], [facility] Oxygen in arterial blood 532 mm[Hg] Critically high 75-100 [facility] Comment on above: Order Comment: RESUL TS CHECKED AND CALLED. ACCURATELY READ BACK BY DAT Performed By: #### 1 53, ####[facility] [place] [address], [facility] pH of blood 7.22 [pH] Critically low 7.35-7.45 [facility] Comment on above: Order Comment: RESUL TS CHECKED AND CALLED. ACCURATELY READ BACK BY DAT Performed By: #### 1 53, ####[facility] [place] [address], [facility] BASIC METABOLIC PANELon 03-0 Calcium 8.1 mg/dL Low 8.6-10.3 [facility] Comment on above: Order Comment: No: D o not add to previous draw Performed By: #### 1 53, ####[facility] [place] [address], [facility] Chloride 116 mmol/L High 98-107 [facility] Comment on above: Order Comment: No: D o not add to previous draw Performed By: #### 1 53, ####[facility] [place] [address], [facility] Creatinine 0.85 mg/dL Normal 0.60-1.20 [facility] Comment on above: Order Comment: No: D o not add to previous draw Performed By: #### 1 53, ####[facility] [place] [address], [facility] Glucose mass conc 109 mg/dL High 70-100 [facility] Comment on above: Order Comment: No: D o not add to previous draw Performed By: #### 1 53, ####[facility] [id number], [facility] Potassium molar conc 4.9 mmol/L Normal 3.5-5.1 [facility] Comment on above: Order Comment: No: D o not add to previous draw Performed By: #### 1 53, ####[facility] [place] [address], [facility] Sodium 142 mmol/L Normal 136-145 [facility] Comment on above: Order Comment: No: D o not add to previous draw Performed By: #### 1 53, ####[facility] [place] [address], [facility] Urea nitrogen 16 mg/dL Normal 7-25 [facility] Comment on above: Order Comment: No: D o not add to previous draw Performed By: #### 1 53, ####[facility] [place] [address], [facility] Calcium 7.9 mg/dL Low 8.6-10.3 [facility] Comment on above: Order Comment: No: D o not add to previous draw Performed By: #### 1 ####[facility] [place] [address], [facility] Chloride 113 mmol/L High 98-107 [facility] Comment on above: Order Comment: No: D o not add to previous draw Performed By: #### 1 53, ####[facility] [place] [address], [facility] CO2 22 mmol/L Normal 21-31 [facility] Comment on above: Order Comment: No: D o not add to previous draw Performed By: #### 1 53, ####[facility] [place] [address], [facility] Creatinine 0.68 mg/dL Normal 0.60-1.20 [facility] Comment on above: Order Comment: No: D o not add to previous draw Performed By: #### 1 ####[facility] [place] [address], [facility] eGFR (black) mL/min/{1.73_m2} Normal >60 [facility] Comment on above: Order Comment: No: D o not add to previous draw Result Comment: Calc ulation may not be valid for patients over 70 years Performed By: #### 1 53, ####[facility] [place] [address], [facility] eGFR (non-black) mL/min/{1.73_m2} Normal >60 [facility] Comment on above: Order Comment: No: D o not add to previous draw Result Comment: Calc ulation may not be valid for patients over 70 years Performed By: #### 1 53, ####[facility] [place] [address], [facility] Glucose mass conc 141 mg/dL High 70-100 [facility] Comment on above: Order Comment: No: D o not add to previous draw Performed By: #### 1 53, ####[facility] [place] [address], [facility] Potassium molar conc 3.3 mmol/L Low 3.5-5.1 [facility] Comment on above: Order Comment: No: D o not add to previous draw Performed By: #### 1 53, ####[facility] [place] [address], [facility] Sodium 139 mmol/L Normal 136-145 [facility] Comment on above: Order Comment: No: D o not add to previous draw Performed By: #### 1 53, ####[facility] [place] [address], [facility] Urea nitrogen 12 mg/dL Normal 7-25 [facility] Comment on above: Order Comment: No: D o not add to previous draw Performed By: #### 1 53, ####[facility] [facility].[address] CBC W/DIFFon 08-11-2017 ABS BASOPHILS 0.0 10*3/uL Normal 0.0-0.2 [facility] Comment on above: Performed By: #### 1 53, ####[facility] [facility].[address] ABS IMM GRANS 0.0 10*3/uL Normal 0.0-0.2 [facility] Comment on above: Performed By: #### 1 53, ####[facility] [facility].[address] Basophils Auto #/vol (Bld) 0.1 % Normal 0.0-1.0 [facility] Comment on above: Performed By: #### 1 ####[facility] [facility].[address] Eosinophils 0.0 10*3/uL Normal 0.0-0.5 [facility] Comment on above: Performed By: #### 1 ####[facility] [facility].[address] Eosinophils/100 leukocytes 0.1 % Normal 0.0-6.0 [facility] Comment on above: Performed By: #### 1 ####[facility] [facility].[address] Erythrocyte distribution width Auto Ratio (RBC) 15.1 % High 11.5-15.0 [facility] Comment on above: Performed By: #### 1 ####[facility] [facility].[address] Erythrocytes (RBC) 0 % Normal 0-0 [facility] Comment on above: Performed By: #### 1 ####[facility] [facility].[address] Erythrocytes (RBC) 4.46 10*6/uL Normal 3.80-5.00 [facility] Comment on above: Performed By: #### 1 ####[facility] [facility].[address] Hematocrit (HCT) 40.3 % Normal 36.0-45.0 [facility] Comment on above: Performed By: #### 1 ####[place] [address] [facility].[address] Hemoglobin mass conc (Bld) 13.5 g/dL Normal 12.0-15.0 [facility] Comment on above: Performed By: #### 1 ####[facility] [facility].[address] IMMATURE GRANS 0.2 % Normal 0.0-1.0 [facility] Comment on above: Performed By: #### 1 ####[place] [address] [facility].[address] Lymphocytes 0.9 10*3/uL Low 1.2-4.0 [facility] Comment on above: Performed By: #### 1 ####[facility] [facility].[address] Lymphocytes/100 leukocytes 5.8 % Low 20.0-45.0 [facility] Comment on above: Performed By: #### 1 ####[facility] [facility].[address] MCH 30.3 pg Normal 27.0-33.0 [facility] Comment on above: Performed By: #### 1 ####[facility] MCHC mass conc (RBC) 33.5 g/dL Normal 32.0-35.0 [facility] Comment on above: Performed By: #### 1 ####[facility] [facility].[address] MCV 90.4 fL Normal 82.0-98.0 [facility] Comment on above: Performed By: #### 1 ####[facility] [facility].[address] Monocytes 0.7 10*3/uL Normal 0.1-1.0 [facility] Comment on above: Performed By: #### 1 ####[facility] [facility].[address] MONOS 4.6 % Low 5.0-12.0 [facility] Comment on above: Performed By: #### 1 ####[place] [address] [facility].[address] Neutrophils 13.6 10*3/uL High 1.6-7.6 [facility] Comment on above: Performed By: #### 1 ####[facility] [facility].[address] Neutrophils/100 leukocytes 89.2 % High 40.0-72.0 [facility] Comment on above: Performed By: #### 1 ####[facility] [facility].[address] PLAT CNT 94 10*3/uL Low 150-400 [facility] Comment on above: Result Comment: P = 126 Performed By: #### 1 ####[facility] WBC (Leukocytes) 15.2 10*3/uL High 4.0-10.6 [facility] Comment on above: Performed By: #### 1 0054, 15590 ####[facility] ABS BASOPHILS 0.0 10*3/uL Normal 0.0-0.2 [facility] Comment on above: Performed By: #### 5 0103 ####[facility] ABS IMM GRANS 0.1 10*3/uL Normal 0.0-0.2 [facility] Comment on above: Performed By: #### 5 0103 ####[place] [address] [address] Basophils Auto #/vol (Bld) 0.3 % Normal 0.0-1.0 [facility] Comment on above: Performed By: #### 5 0103 ####[facility] Eosinophils 0.0 10*3/uL Normal 0.0-0.5 [facility] Comment on above: Performed By: #### 5 0103 ####[place] [address] [address] Eosinophils/100 leukocytes 0.2 % Normal 0.0-6.0 [facility] Comment on above: Performed By: #### 5 0103 ####[place] [address] [address] Erythrocyte distribution width Auto Ratio (RBC) 14.3 % Normal 11.5-15.0 [facility] Comment on above: Performed By: #### 5 0103 ####[facility] Erythrocytes (RBC) 3.50 10*6/uL Low 3.80-5.00 [facility] Comment on above: Performed By: #### 5 0103 ####[facility] [facility].[address] Erythrocytes (RBC) 0 % Normal 0-0 [facility] Comment on above: Performed By: #### 5 0103 ####[facility] [facility].[address] Hematocrit (HCT) 32.5 % Low 36.0-45.0 [facility] Comment on above: Performed By: #### 5 0103 ####[facility] Hemoglobin mass conc (Bld) 10.9 g/dL Low 12.0-15.0 [facility] Comment on above: Performed By: #### 5 0103 ####[facility] IMMATURE GRANS 0.4 % Normal 0.0-1.0 [facility] Comment on above: Performed By: #### 5 0103 ####[facility] Lymphocytes 2.3 10*3/uL Normal 1.2-4.0 [facility] Comment on above: Performed By: #### 5 0103 ####[facility] Lymphocytes/100 leukocytes 17.6 % Low 20.0-45.0 [facility] Comment on above: Performed By: #### 5 0103 ####[facility] MCH 31.1 pg Normal 27.0-33.0 [facility] Comment on above: Performed By: #### 5 0103 ####[facility] [facility].[address] MCHC mass conc (RBC) 33.5 g/dL Normal 32.0-35.0 [facility] Comment on above: Performed By: #### 5 0103 ####[facility] [facility] [address], [facility] MCV 92.9 fL Normal 82.0-98.0 [facility] Comment on above: Performed By: #### 5 0103 ####[facility] [facility] [address], [facility] Monocytes 0.8 10*3/uL Normal 0.1-1.0 [facility] Comment on above: Performed By: #### 5 0103 ####[facility] [facility].[address] MONOS 6.1 % Normal 5.0-12.0 [facility] Comment on above: Performed By: #### 5 0103 ####[facility] [facility].[address] Neutrophils 9.7 10*3/uL High 1.6-7.6 [facility] Comment on above: Performed By: #### 5 0103 ####[facility] [facility].[address] Neutrophils/100 leukocytes 75.4 % High 40.0-72.0 [facility] Comment on above: Performed By: #### 5 0103 ####[facility] [facility] [address], [facility] PLAT CNT 126 10*3/uL Low 150-400 [facility] Comment on above: Performed By: #### 5 0103 ####[facility] [facility].[address] WBC (Leukocytes) 12.9 10*3/uL High 4.0-10.6 [facility] Comment on above: Performed By: #### 5 0103 ####[facility] COMP METABOLIC PANELon 08-11 Alanine aminotransferase (ALT) 8 U/L Normal 7-52 [facility] Comment on above: Performed By: #### 0 0121, 47271 ####[facility] Albumin 2.6 g/dL Low 3.5-5.7 [facility] Comment on above: Performed By: #### 0 0121, 18664 ####[facility] ALKALINE PHOSPH 34 IU/L Normal 34-104 [facility] Comment on above: Performed By: #### 0 0121, 68162 ####[facility] Aspartate aminotransferase (AST) 11 U/L Low 13-39 [facility] Comment on above: Performed By: #### 0 0121, 53824 ####[facility] Bilirubin (total) 0.7 mg/dL Normal 0.3-1.0 [facility] Comment on above: Performed By: #### 0 0121, 46026 ####[facility] Calcium 7.4 mg/dL Low 8.6-10.3 [facility] Comment on above: Performed By: #### 0 0121, 47683 ####[facility] Chloride 112 mmol/L High 98-107 [facility] Comment on above: Performed By: #### 0 0121, 55114 ####[facility] [place] [address], [facility] CO2 22 mmol/L Normal 21-31 [facility] Comment on above: Performed By: #### 0 0121, 60220 ####[facility] [place] [address], [facility] Creatinine 0.83 mg/dL Normal 0.60-1.20 [facility] Comment on above: Performed By: #### 0 0121, 52023 ####[facility] [place] [address], [facility] eGFR (black) mL/min/{1.73_m2} Normal >60 [facility] Comment on above: Result Comment: Calc ulation may not be valid for patients over 70 years Performed By: #### 0 0121, 80302 ####[facility] [place] [address], [facility] eGFR (non-black) mL/min/{1.73_m2} Normal >60 [facility] Comment on above: Result Comment: Calc ulation may not be valid for patients over 70 years Performed By: #### 0 0121, 73352 ####[facility] [place] [address], [facility] Glucose mass conc 138 mg/dL High 70-100 [facility] Comment on above: Performed By: #### 0 0121, 52926 ####[facility] [place] [address], [place] Potassium molar conc 4.0 mmol/L Normal 3.5-5.1 [facility] Comment on above: Performed By: #### 0 0121, 60995 ####[facility] [place] [address], [facility] Protein 4.1 g/dL Low 6.0-8.3 [facility] Comment on above: Performed By: #### 0 0121, 97995 ####[facility] [facility] [address], [facility] Sodium 138 mmol/L Normal 136-145 [facility] Comment on above: Performed By: #### 0 0121, 02997 ####[facility] [facility] [address], [facility] Urea nitrogen 16 mg/dL Normal 7-25 [facility] Comment on above: Performed By: #### 0 0121, 62974 ####[facility] [facility], [place] [address] [place] [address] Consultationon 08-11-2017 Consultation MR#: [id number] Pt. Name: Judith Land Date of Service: 08/10/2017 Room #: SIC [id number] Birthdate: 1945 Referring Physician: JAYE FOR CONSULTATION: Critical care management status post splenectomy,ventilatory management.HISTORY OF PRESENT ILLNESS: Ms. Judith Land is a 72-year-old female witha history of hypertension, hyperlipidemia, diabetes, and COPD, whopresented as a transfer from [place], [place] with a traumatic brain injury.The patient reportedly fell, as reported by her daughter, [facility] on 07/22/2017, in her home. She [...] days. She presented to the hospital in [place], [place], and aCT abdomen and pelvis was obtained that demonstrated a grade 5 spleniclaceration. The patient was initially hemodynamically stable per reportsfrom the outside facility, however she became markedly hypotensive,unresponsive to multiple fluid boluses, and was transferred to [facility] as a level 1 trauma. When [place], she had received 3 L of crystalloid and 4 units of blood atthat time and only transiently responded to this fluid resuscitation. Shewas hypotensive in the [place] and an emergent right femoral Cordis wasplaced [...] chronic obstructivepulmonary disease, not on home O2; nls-ikdrcvs-ptuhgvfkw diabetes mellitus,type 2; anxiety.PAST SURGICAL HISTORY: Hysterectomy, [...] outside facilityreviewed with attending surgeon in [place] with evidence of rupturedspleen with blood products [...] past. GCS is 15reported in the [place] [place], currently GCS is 3T, intubated and sedated.She [...] the setting ofcritical care status.Endocrine: History of dbv-gmrevgr-ddnpqnbsx diabetes mellitus, type 2, onhome metformin. We [...] was placed in emergent setting in the[place], this will be removed/replaced within 24 hours [...] Dict: 08/11/2017/04:38 A/Pippa Gutierrez Trans: 08/11/2017 02:22 [id number] Normal [facility] FRESH FROZEN PLASMA 2 UNITSo n 08-11-2017 PRODUCT CODE 1 E2701 [facility] Comment on above: Order Comment: INR: 1.22 ,PTT: 27.2 at the time of order ;Indication: Activebleeding/invasive procedure with prolonged PT/PTT or INR > 1.6 Performed By: #### 1 8142, 36789 ####[place] [address] [address] PRODUCT CODE 2 E2701 Normal [facility] Comment on above: Order Comment: INR: 1.22 ,PTT: 27.2 at the time of order ;Indication: Activebleeding/invasive procedure with prolonged PT/PTT or INR > 1.6 Performed By: #### 1 53, ####[facility] PRODUCT STATUS 1 PT Normal [facility] Comment on above: Order Comment: INR: 1.22 ,PTT: 27.2 at the time of order ;Indication: Activebleeding/invasive procedure with prolonged PT/PTT or INR > 1.6 Result Comment: Resu lt changed by IF on 08/11/2017 00:27. The previous value was XX.Result changed by IF on 08/12/2017 02:00. The previous value was IS. Performed By: #### 1 53, ####[facility] PRODUCT STATUS 2 PT Normal [facility] Comment on above: Order Comment: INR: 1.22 ,PTT: 27.2 at the time of order ;Indication: Activebleeding/invasive procedure with prolonged PT/PTT or INR > 1.6 Result Comment: Resu lt changed by IF on 08/11/2017 03:17. The previous value was XM.Result changed by IF on 08/13/2017 02:00. The previous value was IS. Performed By: #### 1 53, ####[facility] UNIT ABO 1 O Normal [facility] Comment on above: Order Comment: INR: 1.22 ,PTT: 27.2 at the time of order ;Indication: Activebleeding/invasive procedure with prolonged PT/PTT or INR > 1.6 Performed By: #### 1 53, ####[facility] UNIT ABO 2 O Normal [facility] Comment on above: Order Comment: INR: 1.22 ,PTT: 27.2 at the time of order ;Indication: Activebleeding/invasive procedure with prolonged PT/PTT or INR > 1.6 Performed By: #### 1 53, ####[facility] UNIT ID 1 [id number] Normal [facility] Comment on above: Order Comment: INR: 1.22 ,PTT: 27.2 at the time of order ;Indication: Activebleeding/invasive procedure with prolonged PT/PTT or INR > 1.6 Performed By: #### 1 53, ####[facility] UNIT ID 2 [id number] Normal [facility] Comment on above: Order Comment: INR: 1.22 ,PTT: 27.2 at the time of order ;Indication: Activebleeding/invasive procedure with prolonged PT/PTT or INR > 1.6 Performed By: #### 1 53, ####[facility] UNIT RH 1 Positive Normal [facility] Comment on above: Order Comment: INR: 1.22 ,PTT: 27.2 at the time of order ;Indication: Activebleeding/invasive procedure with prolonged PT/PTT or INR > 1.6 Performed By: #### 1 53, ####[facility] UNIT RH 2 Negative Normal [facility] Comment on above: Order Comment: INR: 1.22 ,PTT: 27.2 at the time of order ;Indication: Activebleeding/invasive procedure with prolonged PT/PTT or INR > 1.6 Performed By: #### 1 53, ####[facility] HEMATOCRITon 08-11-2017 Hematocrit (HCT) 37.7 % Normal 36.0-45.0 [facility] Comment on above: Order Comment: No: D o not add to previous draw Performed By: #### 1 53, ####[facility] Hematocrit (HCT) 34.8 % Low 36.0-45.0 [facility] Comment on above: Order Comment: No: D o not add to previous draw Performed By: #### 1 53, ####[facility] HEMOGLOBINon 08-11-2017 Hemoglobin mass conc (Bld) 12.7 g/dL Normal 12.0-15.0 [facility] Comment on above: Order Comment: No: D o not add to previous drawLAB DRAW NOW - PER CECY MCELROY Performed By: #### 1 53, ####[address] Hemoglobin mass conc (Bld) 11.8 g/dL Low 12.0-15.0 [facility] Comment on above: Order Comment: No: D o not add to previous draw Performed By: #### 1 53, ####[address] History and Physicalon 08-11 History and Physical MR#: [id number] Pt. Name: Judith Land Admitted: 08/11/2017 Date of : 1945 Attending Physician: Alexander Caballero M.D. Room #: SIC [id number] Discharge Date: HISTORY AND PHYSICALCHIEF COMPLAINT: Trauma [...] they were fluctuating while in the [place],stabilized with fluid.GENERAL: Alert and oriented, no acute [...] personal documentation from me. Date Dict: 08/11/2017/12:27 A/Antony Contreras, SUKHJINDERate Trans: 08/11/2017 08:41 A/LaurelN_JN:[id number] Normal [facility] LACTATE BLOODon 08-11-2017 Lactate 1.1 mmol/L Normal .5-2.2 [facility] Comment on above: Order Comment: No: D o not add to previous draw Performed By: #### 1 53, ####[facility] [facility] [address], [facility] Lactate 1.3 mmol/L Normal .5-2.2 [facility] Comment on above: Performed By: #### 1 53, ####[facility] [facility] [place] [address], [facility] LIPASE BLOODon 08-11-2017 Lipase 13 Units/L Normal 11-82 [facility] Comment on above: Performed By: #### 0 0121, 26129 ####[facility] [facility] [address], [facility] LIVER BATTERYon 08-11-2017 Alanine aminotransferase (ALT) 18 U/L Normal 7-52 [facility] Comment on above: Order Comment: No: D o not add to previous draw Performed By: #### 1 53, ####[facility] [place] [address], [facility] Albumin 2.8 g/dL Low 3.5-5.7 [facility] Comment on above: Order Comment: No: D o not add to previous draw Performed By: #### 1 53, ####[facility] [place] [address], [facility] ALKALINE PHOSPH 36 IU/L Normal 34-104 [facility] Comment on above: Order Comment: No: D o not add to previous draw Performed By: #### 1 53, ####[facility] [place] [address], [facility] Aspartate aminotransferase (AST) 30 U/L Normal 13-39 [facility] Comment on above: Order Comment: No: D o not add to previous draw Performed By: #### 1 53, ####[facility] [place] [address], [place] Bilirubin (direct) 0.2 mg/dL Normal 0.0-0.2 [facility] Comment on above: Order Comment: No: D o not add to previous draw Performed By: #### 1 53, ####[facility] [place] [address], [place] Bilirubin (total) 0.9 mg/dL Normal 0.3-1.0 [facility] Comment on above: Order Comment: No: D o not add to previous draw Performed By: #### 1 53, ####[facility] [place] [address], [place] Protein 4.0 g/dL Low 6.0-8.3 [facility] Comment on above: Order Comment: No: D o not add to previous draw Performed By: #### 1 ####[facility] MAGNESIUM BLOODon 08-11-2017 Magnesium 1.4 mg/dL Low 1.9-2.7 [facility] Comment on above: Order Comment: No: D o not add to previous draw Performed By: #### 1 53, ####[facility] Operative Reporton 8 Operative Report MR#: [id number] [facility] Room #: SIC [id number] Discharge Date: Birthdate: 1945 OPERATIVE REPORTDATE OF [...] 08/11/2017/06:29 A/Aldo Villasenor, MDDate Trans: 08/11/2017 03:54 [id number] Normal [facility] PHOSPHORUS BLOODon 8 Phosphate 3.1 mg/dL Normal 2.5-5.0 [facility] Comment on above: Order Comment: No: D o not add to previous draw Performed By: #### 1 53, ####[facility] PLATELET APHERESIS 1 UNITon 08-11-2017 PRODUCT CODE 1 E7006 Normal [facility] Comment on above: Order Comment: Plt c ount at the time of order: 126 ;Indication: Platelet-inhibitingdrug therapy with invasive procedure/bleeding Performed By: #### 1 53, ####[facility] PRODUCT STATUS 1 PT Normal [facility] Comment on above: Order Comment: Plt c ount at the time of order: 126 ;Indication: Platelet-inhibitingdrug therapy with invasive procedure/bleeding Result Comment: Resu lt changed by IF on 08/11/2017 00:20. The previous value was XM.Result changed by IF on 08/12/2017 02:00. The previous value was IS. Performed By: #### 1 53, ####[facility] [facility] [address], [facility] UNIT ABO 1 O Normal [facility] Comment on above: Order Comment: Plt c ount at the time of order: 126 ;Indication: Platelet-inhibitingdrug therapy with invasive procedure/bleeding Performed By: #### 1 53, ####[facility] [place] [address].[address] UNIT ID 1 [id number] Normal [facility] Comment on above: Order Comment: Plt c ount at the time of order: 126 ;Indication: Platelet-inhibitingdrug therapy with invasive procedure/bleeding Performed By: #### 1 53, ####[address] UNIT RH 1 Positive Normal [facility] Comment on above: Order Comment: Plt c ount at the time of order: 126 ;Indication: Platelet-inhibitingdrug therapy with invasive procedure/bleeding Performed By: #### 1 53, ####[address] POC GLUCOSE LABon 08-11-2017 Glucose mass conc 100 mg/dL Normal 70-100 [facility] Comment on above: Performed By: #### 1 53, ####[address] PORTABLE ABDOMENon 8 PORTABLE ABDOMEN [facility] Emvysflxs[address] [place] [address] Sera ent Name: JUDITH LAND : 1945Sex: FAge: Race: WhiteMRN: [id number]. Location: EMERPatient Status: IVisit #: [id number] Date: 08/11/2017 12:35:00 AMCompleted Date: 08/11/2017 01:07 AMRequesting Provider: ALEXANDER CABALLERO Attending Provider: ALEXANDER CABALLERO Report Copy To: Signs & Symptoms: Intra-op portable abdomenHistory: R/O foreign bodyComments: R/O foreign bodyExam: PORTABLE ABDOMENAccession #: [id number] ===PORTABLE ABDOMEN 08/11/2017 1:07 AM EST SIGNS [...] tube and left upper quadrant drain. Approved by:Kd Mcneill on 08/11/2017 1:12 AM EST. I, Yeimi Nascimento, have reviewed the images and report and concur with these findings. Electronically signed by:Yeimi Nascimento. Transcribed by: [email or web address], User Resident: KD TOTHANElectronically Signed by: YEIMI NASCIMENTO @ 08/11/2017 12:16 PMI personally read this/these film(s) with this resident Normal [facility] Comment on above: Order Comment: R/O f oreign body PORTABLE CHEST 1 VIEWon 03-0 PORTABLE CHEST 1 [facility]IEW [facility] [address] [place] [address] Sera ent Name: JUDITH LAND : 1945Sex: FAge: Race: WhiteMRN: [id number]. Location: [id number] Status: IVisit #: [id number] Date: 08/11/2017 1:45:00 AMCompleted Date: 08/11/2017 02:13 AMRequesting Provider: CARMENZA WINTER Attending Provider: ALEXANDER CABALLERO Report Copy To: Signs & Symptoms: Post OPHistory: Patient history not availableComments: Check E.T. Position, also to chest OGT placementExam: PORTABLE CHEST 1 VIEWAccession #: [id number] ===PORTABLE CHEST 1 VIEW 08/11/2017 2:13 AM [...] evidence of an acute cardiopulmonary process. Approved by:Kd Mcneill on 08/11/2017 3:25 AM EST. I, Yeimi Nascimento, have reviewed the images and report and concur with these findings. Electronically signed by:Yeimi Nascimento. Transcribed by: [email or web address], User Resident: KD TOTHANElectronically Signed by: YEIMI NASCIMENTO @ 08/11/2017 12:17 PMI personally read this/these film(s) with this resident Normal [facility] Comment on above: Order Comment: Check E.T. Position, also to chest OGT placement PROTHROMBIN TIMEon 8 INR Coag RelTime (PPP) 1.44 {INR} High 0.91-1.16 [facility] Comment on above: Order Comment: [...] OF ACTION, CLINICALEFFECTIVENESS, AND OPTIMAL THERAPEUTIC RANGE. [id number]. Performed By: #### 1 7111, [address] ####[place] [address] [address] Prothrombin time (PT) Coag time (PPP) 17.7 s High 12.3-14.8 [facility] Comment on above: Order Comment: No: D o not add to previous draw Result Comment: ALL RESULTS MUST BE INTERPRETED WITH RESPECT TO BLOOD DRAWING ARTIFACTOR DILUTION ERROR OF ANTICOAGULANT AT THE TIME OF SAMPLING. Performed By: #### 1 0054, [id number] ####[facility] [address], [facility] INR Coag RelTime (PPP) 1.22 {INR} High 0.91-1.16 [facility] Comment on above: Result Comment: ACCC P RECOMMENDED INR FOR WARFARIN THERAPY CONDITION INRPROPHYLAXIS OF VENOUS THROMBOSIS 2-3(HIGH-RISK SURGERY)TREATMENT OF VENOUS THROMBOSIS 2-3TREATMENT OF PULMONARY EMBOLISM 2-3PREVENTION OF SYSTEMIC EMBOLISM: 2-3 ACUTE MYOCARDIAL INFARCTION TISSUE HEART VALVES VALVULAR HEART DISEASE ATRIAL FIBRILLATION RECURRENT SYSTEMIC EMBOLISMMECHANICAL HEART VALVE 2.5-3.5 FROM: ORAL ANTICOAGULANTS. MECHANISM OF ACTION, CLINICALEFFECTIVENESS, AND OPTIMAL THERAPEUTIC RANGE. [id number]. Performed By: #### 5 6101, [id number] ####[facility] [address], [facility] Prothrombin time (PT) Coag time (PPP) 15.5 s High 12.3-14.8 [facility] Comment on above: Result Comment: ALL RESULTS MUST BE INTERPRETED WITH RESPECT TO BLOOD DRAWING ARTIFACTOR DILUTION ERROR OF ANTICOAGULANT AT THE TIME OF SAMPLING. Performed By: #### 5 [id number], [id number] ####[facility] [place] [address], [place] RBC'S 4 UNITSon 08-11-2017 CROSSMATCH INTERP 1 COMP Normal [facility] Comment on above: Performed By: #### 8 6004 ####[facility] [place] [address], [place] CROSSMATCH INTERP 2 COMP Normal [facility] Comment on above: Performed By: #### 8 6004 ####[facility] [place] [address], [place] CROSSMATCH INTERP 3 COMP Normal [facility] Comment on above: Performed By: #### 8 6004 ####[facility] [place] [address], [place] CROSSMATCH INTERP 4 COMP Normal [facility] Comment on above: Performed By: #### 8 6004 ####[facility] [place] [address], [place] PRODUCT CODE 1 [id number] Normal [facility] Comment on above: Performed By: #### 8 6004 ####[facility] [place] [address], [place] PRODUCT CODE 2 [id number] Normal [facility] Comment on above: Performed By: #### 8 6004 ####[facility] [place] [address], [place] PRODUCT CODE 3 [id number] Normal [facility] Comment on above: Performed By: #### 8 6004 ####[facility] [place] [address], [place] PRODUCT CODE 4 E0336 Normal [facility] Comment on above: Performed By: #### 8 6004 ####[facility] [place] [address], [place] PRODUCT STATUS 1 RE Normal [facility] Comment on above: Result Comment: Resu lt changed by IF on 08/11/2017 00:26. The previous value was XM.Result changed by IF on 08/11/2017 01:42. The previous value was IS.Result changed by IF on 08/14/2017 07:03. The previous value was XM. Performed By: #### 8 6004 ####[facility] [place] [address], [place] PRODUCT STATUS 2 PT Normal [facility] Comment on above: Result Comment: Resu lt changed by IF on 08/11/2017 00:26. The previous value was XM.Result changed by IF on 08/12/2017 02:00. The previous value was IS. Performed By: #### 8 6004 ####[facility] [place] [address], [place] PRODUCT STATUS 3 RE Normal [facility] Comment on above: Result Comment: Resu lt changed by IF on 08/12/2017 15:16. The previous value was XX. Performed By: #### 8 6004 ####[facility] [place] [address], [place] PRODUCT STATUS 4 RE Normal [facility] Comment on above: Result Comment: Resu lt changed by IF on 08/11/2017 00:26. The previous value was XM.Result changed by IF on 08/11/2017 01:42. The previous value was IS.Result changed by IF on 08/14/2017 07:03. The previous value was XM. Performed By: #### 8 6004 ####[facility] [place] [address], [place] UNIT ABO 1 O Normal [facility] Comment on above: Performed By: #### 8 6004 ####[facility] [place] [address], [place] UNIT ABO 2 O Normal [facility] Comment on above: Performed By: #### 8 6004 ####[facility] [place] [address], [facility] UNIT ABO 3 O Normal [facility] Comment on above: Performed By: #### 8 6004 ####[facility] [place] [address], [place] UNIT ABO 4 O Normal [facility] Comment on above: Performed By: #### 8 6004 ####[facility] [place] [address], [facility] UNIT ID 1 [id number] Normal [facility] Comment on above: Performed By: #### 8 6004 ####[facility] [place] [address], [facility] UNIT ID 2 [id number] Normal [facility] Comment on above: Performed By: #### 8 6004 ####[facility] [place] [address], [facility] UNIT ID 3 [id number] Normal [facility] Comment on above: Performed By: #### 8 6004 ####[facility] [place] [address], [facility] UNIT ID 4 [id number] Normal [facility] Comment on above: Performed By: #### 8 6004 ####[facility] [place] [address], [place] UNIT RH 1 Negative Normal [facility] Comment on above: Performed By: #### 8 6004 ####[facility] [place] [address], [place] UNIT RH 2 Negative Normal [facility] Comment on above: Performed By: #### 8 6004 ####[facility] [place] [address], [place] UNIT RH 3 Negative Normal [facility] Comment on above: Performed By: #### 8 6004 ####[facility] [place] [address], [place] UNIT RH 4 Negative Normal [facility] Comment on above: Performed By: #### 8 6004 ####[facility] [place] [address], [facility] SERUM TESTon 08-11 TEST Negative Normal [facility] Comment on above: Performed By: #### 4 6473 ####[facility] [place] [address], [facility] TYPE AND CROSSMATCHon 2017 ABO INTERPRETATION O Normal [facility] Comment on above: Performed By: #### 6 2594 ####[facility] [place] [address], [place] ANTIBODY SCREEN Negative Normal [facility] Comment on above: Performed By: #### 6 2594 ####[facility] [place] [address], [place] RH INTERPRETATION Negative Normal [facility] Comment on above: Performed By: #### 6 2594 ####[facility] [facility] [place] [address], [facility] Vital Signs Date Time Vital Sign Value Performing Clinician Facility 10-01-2024 09:49-0400 Body height 165.1 cm Supa Pocos DO Work Phone: [facility] 10-01-2024 09:49-0400 Body mass index (BMI) [Ratio] 17.97 kg/m2 Supa Pocos DO Work Phone: [facility] 10-01-2024 09:49-0400 Body weight 48.99 kg Supa Pocos DO Work Phone: [facility] 09-10-2024 14:30-0400 Body height 165.1 cm Supa Pocos DO Work Phone: [facility] 09-10-2024 14:30-0400 Body mass index (BMI) [Ratio] 17.97 kg/m2 Supa Pocos DO Work Phone: [facility] 09-10-2024 14:30-0400 Body weight 48.99 kg Supa Pocos DO Work Phone: [facility] 09-05-2024 06:55-0400 Body temperature 98.4 [degF] Damaso Tupa DO Work Phone: [facility] 09-05-2024 06:55-0400 Heart rate 104 /min Damaso Tupa DO Work Phone: [facility] 09-05-2024 06:55-0400 Respiratory rate 16 /min Damaso Tupa DO Work Phone: [facility] 09-05-2024 06:55-0400 SaO2% (BldA) [Mass fraction] 95 % Damaso Tupa DO Work Phone: [facility] 09-04-2024 14:58-0400 Diastolic blood pressure 66 mm[Hg] Damaso Tupa DO Work Phone: [facility] 09-04-2024 14:58-0400 Systolic blood pressure 116 mm[Hg] Damaso Tupa DO Work Phone: [facility] 09-03-2024 12:27-0400 Body height 167.64 cm Damaso Tupa DO Work Phone: [facility] 08-31-2024 05:54-0400 Body weight 47.8 kg Damaso Tupa DO Work Phone: [facility] 08-25-2024 14:14-0400 Diastolic blood pressure 84 mm[Hg] Damaso Tupa DO Work Phone: [facility] 08-25-2024 14:14-0400 Systolic blood pressure 157 mm[Hg] Damaso Tupa DO Work Phone: [facility] 08-25-2024 07:20-0400 Body temperature 97.7 [degF] Damaso Tupa DO Work Phone: [facility] 08-25-2024 07:20-0400 Heart rate 99 /min Damaso Tupa DO Work Phone: [facility] 08-25-2024 07:20-0400 Respiratory rate 16 /min Damaso Tupa DO Work Phone: [facility] 08-25-2024 07:20-0400 SaO2% (BldA) [Mass fraction] 93 % Damaso Tupa DO Work Phone: [facility] 08-25-2024 04:34-0400 Body weight 49.3 kg Damaso Tupa DO Work Phone: [facility] 08-22-2024 14:20-0400 Body height 167.64 cm Damaso Tupa DO Work Phone: [facility] 08-20-2024 21:23-0400 Diastolic blood pressure 78 mm[Hg] Damaso Tupa DO Work Phone: [facility] 08-20-2024 21:23-0400 Heart rate 70 /min Damaso Tupa DO Work Phone: [facility] 08-20-2024 21:23-0400 Respiratory rate 18 /min Damaso Tupa DO Work Phone: [facility] 08-20-2024 21:23-0400 SaO2% (BldA) [Mass fraction] 94 % Damaso Tupa DO Work Phone: [facility] 08-20-2024 21:23-0400 Systolic blood pressure 163 mm[Hg] Damaso Tupa DO Work Phone: [facility] 08-20-2024 19:33-0400 Body height 167.64 cm Damaso Tupa DO Work Phone: [facility] 08-20-2024 19:33-0400 Body temperature 97.5 [degF] Damaso Charlton DO Work Phone: [facility] 08-20-2024 19:33-0400 Body weight 48.98 kg Damaso Charlton DO Work Phone: [facility] 08-12-2024 12:12-0500 Heart rate 96 /min Supa Pocos [facility] 08-12-2024 12:12-0500 SaO2% (BldA) [Mass fraction] 94 % Supa Pocos [facility] 08-12-2024 12:09-0500 Respiratory rate 20 /min Supa Pocos [facility] 08-12-2024 12:09-0500 Blood Pressure Location Supa Pocos [facility] 08-12-2024 12:09-0500 Diastolic blood pressure 57 mm[Hg] Supa Pocos [facility] 08-12-2024 12:09-0500 Mean blood pressure 78 mm[Hg] Supa Pocos [facility] 08-12-2024 12:09-0500 Systolic blood pressure 120 mm[Hg] Supa Pocos [facility] 08-12-2024 11:17-0500 Heart rate 86 /min Supa Pocos [facility] 08-12-2024 11:17-0500 SaO2% (BldA) [Mass fraction] 97 % Supa Pocos [facility] 08-12-2024 11:15-0500 Diastolic blood pressure 54 mm[Hg] Supa Pocos [facility] 08-12-2024 11:15-0500 Mean blood pressure 74 mm[Hg] Supa Pocos [facility] 08-12-2024 11:15-0500 Systolic blood pressure 113 mm[Hg] Supa Pocos [facility] 08-12-2024 10:48-0500 Heart rate 77 /min Supa Pocos [facility] 08-12-2024 10:48-0500 SaO2% (BldA) [Mass fraction] 92 % Supa Pocos [facility] 08-12-2024 10:48-0500 Blood Pressure Location Supa Pocos [facility] 08-12-2024 10:48-0500 Diastolic blood pressure 52 mm[Hg] Supa Pocos [facility] 08-12-2024 10:48-0500 Mean blood pressure 66 mm[Hg] Supa Pocos [facility] 08-12-2024 10:48-0500 Systolic blood pressure 94 mm[Hg] Supa Pocos [facility] 08-12-2024 10:41-0500 Respiratory rate 18 /min Supa Pocos [facility] 08-12-2024 10:38-0500 Mean blood pressure 65 mm[Hg] Supa Pocos [facility] 08-12-2024 10:38-0500 Respiratory rate 19 /min Supa Pocos [facility] 08-12-2024 10:30-0500 Mean blood pressure 73 mm[Hg] Supa Pocos [facility] 08-12-2024 10:30-0500 Respiratory rate 12 /min Supa Pocos [facility] 08-12-2024 10:20-0500 Mean blood pressure 77 mm[Hg] Supa Pocos [facility] 08-12-2024 10:20-0500 Respiratory rate 12 /min Supa Pocos [facility] 08-12-2024 10:08-0500 Body temperature 97.52 [degF] Supa Pocos [facility] 08-12-2024 10:00-0500 Respiratory rate 11 /min Supa Pocos [facility] 08-12-2024 07:50-0500 Blood Pressure Location Supa Pocos [facility] 08-12-2024 07:50-0500 Heart rate 82 /min Supa Pocos [facility] 08-12-2024 07:48-0500 Body temperature 97.88 [degF] Supa Pocos [facility] 08-06-2024 10:07-0500 Body height 165.1 cm Supa Pocos DO Work Phone: [facility] 08-06-2024 10:07-0500 Body mass index (BMI) [Ratio] 17.97 kg/m2 Supa Pocos DO Work Phone: [facility] 08-06-2024 10:07-0500 Body weight 48.99 kg Supa Pocos DO Work Phone: [facility] 08-03-2024 20:00-0500 Diastolic blood pressure 79 mm[Hg] Christopher Sales [facility] 08-03-2024 20:00-0500 Heart rate 86 /min Christopher Sales [facility] 08-03-2024 20:00-0500 Mean blood pressure 101 mm[Hg] Christopher Sales [facility] 08-03-2024 20:00-0500 SaO2% (BldA) [Mass fraction] 97 % Christopher Sales [facility] 08-03-2024 20:00-0500 Systolic blood pressure 146 mm[Hg] Christopher Sales [facility] 08-03-2024 18:59-0500 Body temperature 97.34 [degF] Christopher Sales [facility] 08-03-2024 18:59-0500 Diastolic blood pressure 82 mm[Hg] Christopher Sales [facility] 08-03-2024 18:59-0500 Heart rate 92 /min Christopher Sales [facility] 08-03-2024 18:59-0500 Respiratory rate 16 /min Christopher Sales [facility] 08-03-2024 18:59-0500 SaO2% (BldA) [Mass fraction] 94 % Christopher Sales [facility] 08-03-2024 18:59-0500 Systolic blood pressure 171 mm[Hg] Christopher Sales [facility] 07-30-2024 07:57-0500 Body height 165.1 cm Supa Pocos DO Work Phone: [facility] 07-30-2024 07:57-0500 Body mass index (BMI) [Ratio] 17.97 kg/m2 Supa Pocos DO Work Phone: [facility] 07-30-2024 07:57-0500 Body weight 48.99 kg Supa Pocos DO Work Phone: [facility] 07-26-2024 18:33-0500 Diastolic blood pressure 91 mm[Hg] Sae Morfin [facility] 07-26-2024 18:33-0500 Heart rate 76 /min Sae Morfin [facility] 07-26-2024 18:33-0500 Mean blood pressure 104 mm[Hg] Sae Navjot [facility] 07-26-2024 18:33-0500 Respiratory rate 14 /min Sae Navjot [facility] 07-26-2024 18:33-0500 SaO2% (BldA) [Mass fraction] 94 % Sae Navjot [facility] 07-26-2024 18:33-0500 Systolic blood pressure 130 mm[Hg] Sae Navjot [facility] 07-26-2024 18:14-0500 Hourly Rounding Sae Navjot [facility] 07-26-2024 18:00-0500 Mean blood pressure 107 mm[Hg] Sae Navjot [facility] 07-26-2024 18:00-0500 Respiratory rate 13 /min Sae Navjot [facility] 07-26-2024 18:00-0500 SaO2% (BldA) [Mass fraction] 95 % Sae Navjot [facility] 07-26-2024 18:00-0500 Systolic blood pressure 139 mm[Hg] Sae Navjot [facility] 07-26-2024 17:10-0500 Diastolic blood pressure 93 mm[Hg] Sae Navjot [facility] 07-26-2024 17:10-0500 Heart rate 75 /min Sae Navjot [facility] 07-26-2024 17:10-0500 Hourly Rounding Sae Navjot [facility] 07-26-2024 17:10-0500 Mean blood pressure 115 mm[Hg] Sae Navjot [facility] 07-26-2024 17:10-0500 Respiratory rate 18 /min Sae Morfin [facility] 07-26-2024 17:10-0500 SaO2% (BldA) [Mass fraction] 93 % Sae Morfin [facility] 07-26-2024 17:10-0500 Systolic blood pressure 160 mm[Hg] Sae Morfin [facility] 07-26-2024 16:02-0500 Body temperature 97.7 [degF] Sae Morfin [facility] 07-26-2024 16:02-0500 Heart rate 89 /min Sae Morfin [facility] 07-26-2024 16:02-0500 Respiratory rate 18 /min Sae Morfin [facility] 07-24-2024 21:00-0500 Diastolic blood pressure 88 mm[Hg] [facility] 07-24-2024 21:00-0500 Heart rate 81 /min [facility] 07-24-2024 21:00-0500 Mean blood pressure 113 mm[Hg] [facility] 07-24-2024 21:00-0500 Respiratory rate 19 /min [facility] 07-24-2024 21:00-0500 SaO2% (BldA) [Mass fraction] 96 % [facility] 07-24-2024 21:00-0500 Systolic blood pressure 164 mm[Hg] [facility] 07-24-2024 20:30-0500 Diastolic blood pressure 77 mm[Hg] [facility] 07-24-2024 20:30-0500 Heart rate 85 /min [facility] 07-24-2024 20:30-0500 Mean blood pressure 105 mm[Hg] [facility] 07-24-2024 20:30-0500 Respiratory rate 15 /min [facility] 07-24-2024 20:30-0500 SaO2% (BldA) [Mass fraction] 93 % [facility] 07-24-2024 20:30-0500 Systolic blood pressure 160 mm[Hg] [facility] 07-24-2024 19:30-0500 Diastolic blood pressure 92 mm[Hg] [facility] 07-24-2024 19:30-0500 Heart rate 78 /min [facility] 07-24-2024 19:30-0500 Mean blood pressure 117 mm[Hg] [facility] 07-24-2024 19:30-0500 Respiratory rate 18 /min [facility] 07-24-2024 19:30-0500 SaO2% (BldA) [Mass fraction] 95 % [facility] 07-24-2024 19:30-0500 Systolic blood pressure 167 mm[Hg] [facility] 07-24-2024 19:02-0500 Body temperature 97.52 [degF] [facility] 07-24-2024 19:02-0500 Heart rate 76 /min [facility] 07-24-2024 19:02-0500 Respiratory rate 18 /min [facility] 07-24-2024 18:46-0500 Body temperature 97.52 [degF] [facility] 07-24-2024 18:46-0500 Heart rate 78 /min [facility] 07-24-2024 18:46-0500 Respiratory rate 18 /min [facility] 07-16-2024 14:51-0500 Diastolic blood pressure 71 mm[Hg] Cherie Cedeno PA-C Work Phone: [facility] 07-16-2024 14:51-0500 Heart rate 97 /min Cherie Cedeno PA-C Work Phone: [facility] 07-16-2024 14:51-0500 SaO2% (BldA) [Mass fraction] 97 % Cherie Cedeno PA-C Work Phone: [facility] 07-16-2024 14:51-0500 Systolic blood pressure 149 mm[Hg] Cherie Cedeno PA-C Work Phone: [facility] 05-21-2024 12:59-0500 Body mass index (BMI) [Ratio] 17.97 kg/m2 Cathie Gill [employer] Work Phone: [facility] 05-21-2024 12:59-0500 Body weight 48.99 kg Cathie Gill [employer] Work Phone: [facility] 05-21-2024 12:59-0500 Diastolic blood pressure 76 mm[Hg] Cathie Franklin [employer] Work Phone: [facility] 05-21-2024 12:59-0500 Heart rate 68 /min Cathie Gill [employer] Work Phone: [facility] 05-21-2024 12:59-0500 Systolic blood pressure 125 mm[Hg] Cathie Franklin [employer] Work Phone: [facility] 04-21-2024 08:39-0500 Body mass index (BMI) [Ratio] 18.64 kg/m2 Cathiechirag Gill [employer] Work Phone: [facility] 04-21-2024 08:39-0500 Body weight 50.8 kg Cathiechirag Gill [employer] Work Phone: [facility] 04-21-2024 08:39-0500 Diastolic blood pressure 75 mm[Hg] Cathie Franklin [employer] Work Phone: [facility] 04-21-2024 08:39-0500 Heart rate 76 /min Cathie Franklin [employer] Work Phone: [facility] 04-21-2024 08:39-0500 Systolic blood pressure 128 mm[Hg] Cathie Franklin [employer] Work Phone: [facility] 02-22-2024 14:35-0400 SaO2% (BldA) [Mass fraction] 95 % Cherie Wilian PA-C Work Phone: [facility] 02-22-2024 14:33-0400 Diastolic blood pressure 73 mm[Hg] Cherie Wilian PA-C Work Phone: [facility] 02-22-2024 14:33-0400 Heart rate 92 /min Cherie Wilian PA-C Work Phone: [facility] 02-22-2024 14:33-0400 Systolic blood pressure 133 mm[Hg] Cherie Wliian PA-C Work Phone: [facility] 01-14-2024 13:40-0400 Body height 167.6 cm Cherie Wilian PA-C Work Phone: [facility] 01-14-2024 13:40-0400 Body mass index (BMI) [Ratio] 19.21 kg/m2 Cherie Wilian PA-C Work Phone: [facility] 01-14-2024 13:40-0400 Body weight 53.98 kg Cherie Wilian PA-C Work Phone: [facility] 01-14-2024 13:40-0400 Diastolic blood pressure 63 mm[Hg] Cherie Wilian PA-C Work Phone: [facility] 01-14-2024 13:40-0400 Heart rate 92 /min Cherie Wilian PA-C Work Phone: [facility] 01-14-2024 13:40-0400 SaO2% (BldA) [Mass fraction] 92 % Cherie Wilian PA-C Work Phone: [facility] 01-14-2024 13:40-0400 Systolic blood pressure 144 mm[Hg] Cherie Wilian PA-C Work Phone: [facility] 10-07-2023 09:46-0400 Diastolic blood pressure 70 mm[Hg] Mri (I-Stat/1.5t/3t) Work Phone: [facility] 10-07-2023 09:46-0400 Heart rate 103 /min Mri (I-Stat/1.5t/3t) Work Phone: [facility] 10-07-2023 09:46-0400 Respiratory rate 16 /min Mri (I-Stat/1.5t/3t) Work Phone: [facility] 10-07-2023 09:46-0400 SaO2% (BldA) [Mass fraction] 93 % Mri (I-Stat/1.5t/3t) Work Phone: [facility] Comment on above: RA 10-07-2023 09:46-0400 Systolic blood pressure 144 mm[Hg] Mri (I-Stat/1.5t/3t) Work Phone: [facility] 09-13-2023 09:23-0400 Body height 167.6 cm David Valente MD Work Phone: [facility] 09-13-2023 09:23-0400 Body weight 55.79 kg David Valente MD Work Phone: [facility] 09-13-2023 09:23-0400 Diastolic blood pressure 71 mm[Hg] David Valente MD Work Phone: [facility] 09-13-2023 09:23-0400 Heart rate 85 /min David Valente MD Work Phone: [facility] 09-13-2023 09:23-0400 SaO2% (BldA) [Mass fraction] 95 % David Valente MD Work Phone: [facility] 09-13-2023 09:23-0400 Systolic blood pressure 132 mm[Hg] David Valente MD Work Phone: [facility] 07-16-2023 15:42-0500 Heart rate 117 /min Demarco Beaver [facility] 07-16-2023 15:42-0500 Respiratory rate 19 /min Demarco Beaver [facility] 07-16-2023 15:42-0500 SaO2% (BldA) [Mass fraction] 94 % Demarco Sd [facility] 07-16-2023 15:00-0500 Diastolic blood pressure 99 mm[Hg] Demarco Sd [facility] 07-16-2023 15:00-0500 Mean blood pressure 121 mm[Hg] Demarco Sd [facility] 07-16-2023 15:00-0500 Respiratory rate 33 /min Demarco Sd [facility] 07-16-2023 15:00-0500 Systolic blood pressure 166 mm[Hg] Demarco Sd [facility] 07-16-2023 14:30-0500 Diastolic blood pressure 77 mm[Hg] Demarco Sd [facility] 07-16-2023 14:30-0500 Heart rate 103 /min Demarco Sd [facility] 07-16-2023 14:30-0500 Mean blood pressure 100 mm[Hg] Demarco Sd [facility] 07-16-2023 14:30-0500 Respiratory rate 14 /min Demarco Sd [facility] 07-16-2023 14:30-0500 SaO2% (BldA) [Mass fraction] 93 % Demarco Sd [facility] 07-16-2023 14:30-0500 Systolic blood pressure 147 mm[Hg] Demarco Sd [facility] 07-16-2023 13:30-0500 Body temperature 97.88 [degF] Demarco Sd [facility] 07-16-2023 13:30-0500 Diastolic blood pressure 84 mm[Hg] Demarco Beaver [facility] 07-16-2023 13:30-0500 Mean blood pressure 105 mm[Hg] Demarco Beaver [facility] 07-16-2023 13:30-0500 Systolic blood pressure 146 mm[Hg] Demarco Beaver [facility] 07-16-2023 11:37-0500 Body temperature 97.16 [degF] Demarco Beaver [facility] 07-16-2023 11:37-0500 Heart rate 119 /min Demarco Beaver [facility] 07-16-2023 11:37-0500 Respiratory rate 18 /min Demarco Beaver [facility] 06-23-2023 14:00-0500 Hourly Rounding [facility] 06-23-2023 14:00-0500 Promise to Return [facility] 06-23-2023 13:00-0500 Hourly Rounding [facility] 06-23-2023 13:00-0500 Promise to Return [facility] 06-23-2023 12:00-0500 Hourly Rounding [facility] 06-23-2023 12:00-0500 Promise to Return [facility] 06-23-2023 11:22-0500 Heart rate 107 /min [facility] 06-23-2023 11:22-0500 SaO2% (BldA) [Mass fraction] 94 % [facility] 06-23-2023 11:21-0500 Diastolic blood pressure 82 mm[Hg] [facility] 06-23-2023 11:21-0500 Mean blood pressure 108 mm[Hg] [facility] 06-23-2023 11:21-0500 Systolic blood pressure 162 mm[Hg] [facility] 06-23-2023 11:20-0500 Body temperature 97.7 [degF] [facility] 06-23-2023 08:20-0500 SaO2% (BldA) [Mass fraction] 98 % [facility] 06-23-2023 07:19-0500 Heart rate 84 /min [facility] 06-23-2023 07:19-0500 SaO2% (BldA) [Mass fraction] 100 % [facility] 06-23-2023 07:18-0500 Body temperature 97.52 [degF] [facility] 06-23-2023 07:18-0500 Diastolic blood pressure 81 mm[Hg] [facility] 06-23-2023 07:18-0500 Mean blood pressure 99 mm[Hg] [facility] 06-23-2023 07:18-0500 Systolic blood pressure 137 mm[Hg] [facility] 06-23-2023 06:17-0500 Blood Pressure Location [facility] 06-23-2023 06:17-0500 Body temperature 97.52 [degF] [facility] 06-23-2023 06:17-0500 Diastolic blood pressure 74 mm[Hg] [facility] 06-23-2023 06:17-0500 Heart rate 99 /min [facility] 06-23-2023 06:17-0500 Respiratory rate 17 /min [facility] 06-23-2023 06:17-0500 Systolic blood pressure 159 mm[Hg] [facility] 06-23-2023 05:01-0500 Heart rate 102 /min [facility] 06-23-2023 05:01-0500 Mean blood pressure 98 mm[Hg] M[facility] 06-23-2023 05:01-0500 Respiratory rate 19 /min [facility] 06-23-2023 04:30-0500 Mean blood pressure 95 mm[Hg] Mela [facility] 06-23-2023 04:30-0500 Respiratory rate 16 /min [facility] 06-23-2023 03:00-0500 Mean blood pressure 121 mm[Hg] [facility] 06-23-2023 03:00-0500 Respiratory rate 20 /min [facility] 06-23-2023 02:43-0500 Respiratory rate 18 /min [facility] 06-23-2023 02:30-0500 Respiratory rate 18 /min [facility] 06-23-2023 01:40-0500 gluc 96 mg/dL [facility] 06-23-2023 01:40-0500 gluc [facility] 06-23-2023 01:38-0500 gluc 96 mg/dL [facility] 06-23-2023 01:38-0500 gluc [facility] 06-23-2023 01:37-0500 Heart rate 117 /min [facility] 05-15-2023 13:50-0500 Body height 167.64 cm MD Kavon Sams Work Phone: [facility] 05-15-2023 13:50-0500 Body weight 57.15 kg MD Kavon Sams Work Phone: [facility] Encounters Encounter Date Encounter Type Care Provider Facility Start: 10-07-2024 End: 10-07-2024 Refill Cherie Cedeno PA-C Work Phone: [facility] Comment on above: Refill Request Start: 10-01-2024 End: 10-01-2024 Patient encounter procedure Supa Owen DO Work Phone: [facility] Comment on above: Closed fracture of s uperior ramus of left pubis, initial encounter ([facility]) (Primary Dx); Other closed intra-articular fracture of distal end of right radius with routine healing, subsequent encounter Start: 10-01-2024 End: 10-01-2024 ambulatory SUPA Davis POCOS Not Available Start: 09-24-2024 End: 09-25-2024 Telephone encounter Kimmy Jaramillo RN [facility] Comment on above: Med Refill Start: 09-17-2024 End: 09-17-2024 ambulatory SHAUN MANUEL Not Available Start: 09-17-2024 End: 09-17-2024 Bamboo flowsheet Shaun Manuel [employer] Work Phone: [facility] Start: 09-17-2024 End: 09-17-2024 Bamboo flowsheet Shaun Manuel [employer] Work Phone: [facility] Start: 09-10-2024 End: 09-10-2024 Patient encounter procedure Supa Sheridanos DO Work Phone: [facility] Comment on above: Right wrist pain (Pr imary Dx); Pelvic pain; Other closed intra-articular fracture of distal end of right radius with routine healing, subsequent encounter; Closed fracture of superior ramus of left pubis, initial encounter ([facility]) Start: 09-10-2024 End: 09-10-2024 ambulatory SUPA Davis POCOS Not Available Start: 09-10-2024 End: 09-10-2024 ambulatory SUPA Davis POCOS Not Available Start: 09-03-2024 Non-patient / Non-visit Micheal Charlton DO Work Phone: [facility] Work Phone: Start: 09-02-2024 Non-patient / Non-visit Micheal Charlton DO Work Phone: [facility] Physician [facility] Work Phone: Start: 08-26-2024 Non-patient / Non-visit Micheal Charlton DO Work Phone: [facility] Physician [facility] Work Phone: Start: 08-25-2024 End: 09-05-2024 Evaluation and management of inpatient Damaso Charlton DO Work Phone: [facility] Work Phone: Start: 08-22-2024 Non-patient / Non-visit Micheal Charlton DO Work Phone: [facility] Physician [facility] Work Phone: Start: 08-20-2024 End: 08-25-2024 Evaluation and management of inpatient Damaso Charlton DO Work Phone: [facility] Work Phone: Start: 08-13-2024 End: 08-13-2024 ambulatory Kavon Sams [facility] Work Phone: Start: 08-13-2024 End: 08-13-2024 Departed Referred Kavon Sams MD Work Phone: [facility] Start: 08-13-2024 End: 08-13-2024 ambulatory [facility] Start: 08-12-2024 End: 08-12-2024 Admission to same day surgery center Supa Owen [facility] Start: 08-12-2024 End: 08-12-2024 ambulatory Supa Owen Facility:[facility] Start: 08-06-2024 End: 08-06-2024 ambulatory Meghan Ramachandran [facility] Work Phone: Start: 08-06-2024 End: 08-06-2024 Departed Referred Kavon Sams MD Work Phone: [facility] Start: 08-06-2024 End: 08-06-2024 Patient encounter [...] End: 08-03-2024 Emergency department patient visit Christopher Henrry [facility] Start: 07-30-2024 End: 07-30-2024 Bamboo flowsheet Supa Davis Pocmalika DO Work Phone: [facility] Start: 07-30-2024 End: 07-30-2024 Bamboo flowsheet Supa Davis Pocos DO Work Phone: [facility] Start: 07-30-2024 End: 07-30-2024 Telephone encounter Cherie Cedeno PA-C Work Phone: [facility] Comment on above: Surgical Clearance Start: 07-30-2024 End: 07-30-2024 Patient encounter procedure Supa Davis Pocmalika DO Work Phone: [facility] Comment on above: Right wrist pain (Pr imary Dx); Closed Colles' fracture of right radius, initial encounter; Other closed fracture of distal end of right ulna, initial encounter; Parkinson's disease with dyskinesia, unspecified whether manifestations fluctuate (CMS/HCC); Underweight Start: 07-30-2024 End: 07-30-2024 ambulatory SUPA Davis POCOS Not Available Start: 07-26-2024 End: 07-26-2024 Emergency department patient visit [facility] Start: 07-24-2024 End: 07-24-2024 Emergency department patient visit Augie Sidhu [facility] Start: 07-24-2024 End: 07-24-2024 ambulatory Kavon Sams [facility] Work Phone: Start: 07-24-2024 End: 07-24-2024 Departed Referred Kavon Sams MD Work Phone: [facility] Start: 07-16-2024 End: 07-16-2024 ambulatory CHEIRE CEDENO Facility:[facility] Start: 07-16-2024 End: 07-16-2024 Office outpatient visit 40 minutes Cherie HUDSON-C Work Phone: [facility] Comment on above: Parkinson's disease with dyskinesia and fluctuating manifestations (HCC) (Primary Dx); Anxiety disorder due to known physiological condition; Hypophonia with hoarseness Start: 05-21-2024 End: 05-21-2024 Bamboo flowsheet Cathie Gill [employer] Work Phone: [facility] Start: 05-21-2024 End: 05-21-2024 Bamboo flowsheet Cathie Gill [employer] Work Phone: [facility] Start: 05-21-2024 End: 05-21-2024 Office outpatient visit 25 minutes Cathie Gill [employer] Work Phone: [facility] Comment on above: Parkinson's disease, unspecified whether dyskinesia present, unspecified whether manifestations fluctuate (CMS/HCC) (Primary Dx); RLS (restless legs syndrome); Cerebral infarction, chronic; Other chronic pain; Carpal tunnel syndrome of right wrist Start: 05-21-2024 End: 05-21-2024 ambulatory CATHIE GILL Not Available Start: 05-03-2024 End: 05-03-2024 ambulatory CATHIE GILL Not Available Start: 04-21-2024 End: 04-21-2024 Bamboo flowsheet Cathie Gill [employer] Work Phone: [facility] Start: 04-21-2024 End: 04-21-2024 Bamboo flowsheet Cathie Gill [employer] [facility] Start: 04-21-2024 End: 04-21-2024 Office outpatient visit 25 minutes Cathie Gill [employer] Work Phone: [facility] Comment on above: Parkinson's disease, unspecified whether dyskinesia present, unspecified whether manifestations fluctuate (CMS/HCC) (Primary Dx); Dyskinesia; RLS (restless legs syndrome); Cerebral infarction, chronic; Bilateral carotid artery stenosis Start: 04-21-2024 End: 04-21-2024 ambulatory CATHIE GILL Not Available Start: 02-23-2024 End: 02-25-2024 Refill [employer] - innovate | mentor | invest Work Phone: [facility] Comment on above: Refill Request Start: 02-22-2024 End: 02-22-2024 Office outpatient visit 40 minutes [employer] Work Phone: [facility] Comment on above: Parkinson's disease with dyskinesia and fluctuating manifestations (HCC) (Primary Dx) Start: 02-22-2024 End: 02-22-2024 [facility] Facility[facility] Start: 01-14-2024 End: 01-14-2024 ambulatory [facility] Facility:[facility] Start: 01-14-2024 End: 01-14-2024 Office outpatient visit 40 minutes [employer] - innovate | mentor | invest Work Phone: [facility] Comment on above: Parkinson's disease with dyskinesia and fluctuating manifestations (HCC) (Primary Dx) Start: 12-20-2023 End: 12-20-2023 ambulatory JOE PRECIADO [facility] Start: 11-27-2023 End: 11-27-2023 ambulatory VERENA HUTSON [facility] Start: 11-19-2023 End: 11-19-2023 ambulatory Rafa Abebe MD Facility: [facility] Start: 11-08-2023 Telephone encounter David Valente MD Work Phone: [facility] Comment on above: Medication Update/Am antadine Start: 10-29-2023 End: 10-29-2023 ambulatory CATHIE GILL Not Available Start: 10-22-2023 End: 10-22-2023 ambulatory Rafa bAebe MD Facility:[facility] Start: 10-17-2023 Refill Hiral Roxana RIVERA .FIELD ASSISTANT Work Phone: [facility] Comment on above: Med Change Request Start: 10-17-2023 Telephone encounter David Valente MD Work Phone: [facility] Comment on above: Results (MRI) Start: 10-15-2023 End: 10-15-2023 ambulatory Hiral Ortega APRN.FIELD ASSISTANT Work Phone: Neurology Comment on above: Parkinson's disease with dyskinesia and fluctuating manifestations (HCC) (Primary Dx) Start: 10-15-2023 End: 10-15-2023 Telemedicine consultation with patient Hiral Ortega MIGUEL.FIELD ASSISTANT Work Phone: Neurology Start: 10-09-2023 Telephone encounter David Valente MD Work Phone: [facility] Start: 10-07-2023 End: 10-07-2023 ambulatory DAVID VALENTE Facility:[facility] Start: 10-07-2023 End: 10-07-2023 ambulatory DAVID [facility] Facility:[facility] Start: 10-07-2023 End: 10-07-2023 Subsequent hospital visit by physician Mri 4 Radio Main Q (I-Stat/1.5t/3t) Work Phone: MRI Q Comment on above: Spinal stenosis of c ervical region [M48.02] Abnormal posture [R2 9.3] 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 [M48.062] Start: 09-26-2023 End: 09-26-2023 ambulatory [facility] Start: 09-18-2023 Evaluation and manag ement of inpatient JOSH THIBODEAUX [facility] Start: 09-17-2023 End: 09-18-2023 Evaluation and management of inpatient [facility] Start: 09-13-2023 End: 09-13-2023 ambulatory DAVID SIDRA Facility:[facility] Start: 09-13-2023 End: 09-13-2023 ambulatory DAVID VALENTE Facility:[facility] Start: 09-13-2023 End: 09-13-2023 Patient encounter procedure David Valente MD Work Phone: [facility] Comment on above: Hyperreflexia (Prima ry Dx); Spinal stenosis of cervical region; Abnormal posture; Spinal stenosis of lumbar region with neurogenic claudication; Neuropathy; Hypertension, unspecified type; Degenerative myopia with other maculopathy, bilateral eye; Parkinson's disease, unspecified whether dyskinesia present, unspecified whether manifestations fluctuate (HCC); Memory changes Start: 09-03-2023 End: 09-03-2023 ambulatory Rafa Abebe MD Facility:[facility] Start: 08-22-2023 End: 08-22-2023 ambulatory [facility] Start: 08-20-2023 End: 08-20-2023 ambulatory [facility] MD [facility] Start: 07-30-2023 End: 07-30-2023 ambulatory Rafa Abebe MD Facility:[facility] Start: 07-16-2023 End: 07-16-2023 Emergency department patient visit Demarco Beaver [facility] Start: 06-23-2023 End: 06-23-2023 Observation Mela Espinal [facility] Start: 05-15-2023 End: 05-15-2023 ambulatory MD Kavon Sams Work Phone: [facility] Work Phone: Start: 05-15-2023 End: 05-15-2023 Patient encounter procedure MD Kavon Sams Work Phone: [facility] [place] Work Phone: Start: 10-09-2022 End: 10-10-[address] KAVON SAMS . Facility: Start: 05-24-2022 End: 05-25-[address] KAVON SAMS . Facility: Start: 05-08-2022 End: 05-10-2022 Evaluation and management of inpatient DR KAVON SAMS . Facility: Start: 03-29-2022 End: 03-29-[address] ANDREW PEDRAZA . Facility: Start: 12-27-2021 End: 12-28-[address] KAVON SAMS . Facility: Start: 08-13-2017 End: 08-14-2017 Ambulatory DEFAULT PHYSICIAN Facility:[facility] Start: 08-11-2017 End: 08-15-2017 Evaluation and management of inpatient REFERRED SELF Facility:[facility] Start: 07-02-2013 EKG myocardial ischemia David Valente MD Work Phone: [facility] Work Phone: Procedures Date Procedure Procedure Detail Performing Clinician Start: 10-01-2024 Radex wrist complete minimum 3 views Supa Davis Pocos DO Work Phone: Start: 10-01-2024 Radiologic examinati on pelvis 1/2 views Supa Davis Pocos DO Work Phone: Start: 09-10-2024 Radex wrist complete minimum 3 views Herbie Pocos DO Work Phone: Start: 09-02-2024 Plain X-ray of left hip Damaso Tupa DO Work Phone: Start: 09-01-2024 CT of head without contrast Damaso Tupa DO Work Phone: Start: 08-30-2024 Urine culture Damaso T upa DO Work Phone: Start: 08-21-2024 Bacteria identified in Blood by Culture Damaso Tupa DO Work Phone: Start: 08-20-2024 Plain chest X-ray Pattyrel Hernandezpa DO Work Phone: Start: 08-20-2024 Bacteria identified in Blood by Culture Damaso Tupa DO Work Phone: Start: 08-20-2024 Urine culture Damaso Medina upa DO Work Phone: Start: 08-13-2024 Urine culture Damaso Medina upa DO Work Phone: Start: 08-12-2024 Open reduction of fr acture with internal fixation Supa Owen Start: 08-06-2024 Urine culture Kavon malone MD Work Phone: Start: 08-06-2024 Radex wrist complete minimum 3 views Supa Davis Pocos DO Work Phone: Start: 07-30-2024 Radex wrist complete minimum 3 views Supa Davis Pocos DO Work Phone: Start: 07-24-2024 Urine culture Kavon malone MD Work Phone: Start: 10-07-2023 Mri [...] TRANSFUSE NONAUT HARRY TELETS IN PERIPH VEIN, [facility] SUPA Irving HEIDT Start: 08-11-2017 TRANSFUSE NONAUT RED BLOOD CELLS IN PERIPH VEIN, [facility] SUPA Irving HEIDT Appendectomy Mela Espinal Cataract (morphologi c abnormality) Mela Espinal History of repair of inguinal hernia Supa Owen Hysterectomy Mela Espinal Splenectomy Mela Espinal Plan of Treatment Date Care Activity Detail Author Start: 09-17-2026 Diabetes Screening Diabetes Screenin g [facility] Start: 09-12-2026 Diabetes Screening Diabetes Screenin g [facility] Start: 09-29-2025 End: 09-29-2025 Patient encounter procedure 09/29/2025 11:00 AM EDT Office Visit [facility] [address] [place] [phone] Shaun Jackson NP [address] [place] [phone] [facility] Start: 01-01-2025 End: 01-01-2025 Patient encounter procedure 01/01/2025 2:30 PM EDT Office Visit Geriatrics [address] [facility] [place] [address] Emiliano Faulkner MD [address] [place], [place] [id number] [facility] Comment on above: [facility] Start: 11-10-2024 End: 11-10-2024 Patient encounter procedure 11/10/2024 10:30 AM EDT Office Visit [facility] [address] [place] [phone] PocSupa daly, DO [address] [place] [address] [facility] Start: 10-01-2024 End: 10-01-2024 Patient encounter procedure 10/01/2024 9:45 AM EDT Office Visit [facility] [address] [place] [phone] Supa Owen, DO [address] [place] [address] [facility] Start: 09-17-2024 End: 09-17-2024 Patient encounter procedure SUJEY CARRENO Comment on above: Arrived Start: 09-08-2024 End: 09-08-2024 Patient encounter procedure 09/08/2024 9:40 AM EDT Office Visit [facility] [address] [place], [place] [address], [place] [phone] Cathie Gill, MIRELLA [address] [place], [place] [address] [address] [facility] [address] Start: 09-05-2024 [facility] Start: 09-02-2024 Consultation [facility] Start: 09-01-2024 [facility] Start: 09-01-2024 Referral to neurologist [facility] Start: 08-26-2024 [facility] Start: 08-25-2024 Hospital admission [facility] Start: 08-25-2024 Referral to clinical airplane flight attendant [facility] Start: 08-25-2024 [facility] Start: 08-22-2024 Administration of prophylactic treatment [facility] Start: 08-22-2024 Referral to neurologist [facility] Start: 08-21-2024 Referral to rehabilitation physician [facility] Start: 08-21-2024 Bacteria identified in Blood by Culture Blood Culture [facility] Start: 08-21-2024 [facility] Start: 08-21-2024 Physical therapy procedure [facility] Start: 08-21-2024 Referral to occupati onal therapist [facility] Start: 08-21-2024 End: 08-21-2024 [facility] Start: 08-20-2024 Hospital admission [facility] Start: 08-20-2024 Urine culture [facility] Start: 08-20-2024 [facility] Start: 08-20-2024 Bacteria identified in Blood by Culture Blood Culture [facility] Start: 08-20-2024 Bacteria identified in Urine by Culture Urine Culture [facility] Start: 08-13-2024 Urine culture [facility] Start: 08-13-2024 Bacteria identified in Urine by Culture Urine Culture [facility] Start: 08-06-2024 Bacteria identified in Urine by Culture Urine Culture [facility] Start: 08-06-2024 Urine culture [facility] Start: 08-06-2024 End: 08-06-2024 Patient encounter procedure 08/06/2024 10:30 AM EST Office Visit [facility] [address] [place] [phone] PocosSupa A, DO [address] [place] [address] [facility] Start: 07-30-2024 End: 07-30-2024 Patient encounter procedure 07/30/2024 8:00 AM EST Office Visit [facility] [address] [place] [phone] PocosSupa A, DO [address] [place] [address] Arrived [facility] Comment on above: Arrived Start: 07-24-2024 Urine culture [facility] Start: 07-24-2024 Bacteria identified in Urine by Culture Urine Culture [facility] Start: 06-11-2024 Advance Directive Discussion Advance Directive Discussion [facility] Start: 05-21-2024 End: 05-21-2024 Patient encounter procedure [facility] [address] [facility] Comment on above: Arrived Start: 05-03-2024 End: 05-03-2024 Professional / ancillary services management 05/03/2024 3:20 PM EST Ancillary Procedure [facility] [address] [place] [phone] Cerebral infarction, chronic; Bilateral carotid artery stenosis [facility] [address] [facility] Comment on above: Cerebral infarction, chronic; Bilateral carotid artery stenosis Start: 04-21-2024 End: 04-21-2024 Patient encounter procedure 04/21/2024 8:40 AM EST Office Visit [facility] [place] [address] [place] [address] Cathie Gill NP [address] [place], [place] [id number] Arrived [facility] [address] [address] Comment on above: Arrived Start: 02-22-2024 End: 02-22-2024 Patient encounter procedure 02/22/2024 3:00 PM EDT Office Visit [facility] [address] [place] [address] Cherie Cedeno PA-C [address] [place] [address] [facility] Start: 02-10-2024 Covid-19 Vaccine ( season) Covid-19 Vaccine () [facility] Start: 02-10-2024 Covid-19 Vaccine ( season) Covid-19 Vaccine () [facility] Start: 02-10-2024 Influenza vaccination [facility] Start: 01-14-2024 End: 01-14-2024 Patient encounter procedure 01/14/2024 2:00 PM EDT Office Visit [facility] [address] [facility] [place] [place] [address] Cherie Cedeno PA-C [address] [place] [address] 3 mo f/u [facility] Comment on above: 3 mo f/u Start: 10-15-2023 End: 10-15-2023 Follow-up encounter 10/15/2023 10:30 AM EDT [facility] [address] [place] [address] Hiral Ortega APRN.FIELD ASSISTANT [address] [place] [address] Follow up Neurology Comment on above: Follow up Start: 09-13-2023 End: 12-13-2023 SUJEY BY IFA WITH REFLEX [facility] Work Phone: Comment on above: Expected: 09/13/2023 , Expires: 12/13/2023 Start: 09-13-2023 End: 12-13-2023 Methylmalonate [Moles/volume] in Serum or Plasma [facility] Work Phone: Comment on above: Expected: 09/13/2023 , Expires: 12/13/2023 Start: 09-13-2023 End: 12-13-2023 PROTEIN ELECT RND UR W/INTERP [facility] Work Phone: Comment on above: Expected: 09/13/2023 , Expires: 12/13/2023 Start: 09-13-2023 End: 12-13-2023 PROTEIN ELECTROPHORESIS SERUM W/BANNERP [facility] Work Phone: Comment on above: Expected: 09/13/2023 , Expires: 12/13/2023 Start: 06-11-2023 Advance Directive Discussion Advance Directive Discussion [facility] Start: 02-09-2023 Covid-19 Vaccine () Covid-19 Vaccine ( season) [facility] Start: 2021 RSV Vaccine (1 - 1-d ose 75+ series) RSV Vaccine (1 - 1-dose 75+ series) [facility] Start: 10-28-2020 Pneumococcal Vaccine : 50+ (2 of 2 - PCV) Pneumococcal Vaccine: 50+ (2 of 2 - PCV) [facility] Start: 10-28-2020 Pneumococcal Vaccine : 65+ (2 of 2 - PCV) Pneumococcal Vaccine: 65+ (2 of 2 - PCV) [facility] Start: 2011 Screening for osteoporosis Bone Density Screening [facility] Start: 2006 RSV Vaccine (1 - 1-d ose 60+ series) RSV Vaccine (1 - 1-dose 60+ series) [facility] Start: 02-09-1996 Shingrix Vaccine (1 of 2) Avelar grix Vaccine (1 of 2) [facility] Start: 1965 Urine microalbumin profile DTaP,Tdap,Td Vaccine (1 - Tdap) [facility] Start: 02-09-1964 Annual PCP Team Drama Professor [place] Disease Visit Annual PCP Team Chronic Disease Visit [facility] Start: 02-09-1964 Anxiety Screening Anxiety Screening [facility] Start: 02-09-1964 BP Controlled (<130/80) BP Con trolled (<130/80) [facility] Start: 02-09-1964 Depression Screening Depression Scre ening [facility] Start: 02-09-1964 [facility] Basophils [#/volume] in Blood by Automated count [facility] Basophils/100 leukoc ytes in Blood by Automated count [facility] Eosinophils/100 leukocytes in Blood by Automated count [facility] Erythrocyte distribu tion width [Ratio] by Automated count [facility] Erythrocytes [#/volu me] in Blood [facility] Hematocrit [Volume Fraction] of Blood [facility] Hemoglobin [Mass/vol ume] in Blood [facility] Leukocytes [#/volume ] corrected for nucleated erythrocytes in Blood by Automated coun [facility] Leukocytes [#/volume ] in Blood [facility] Lymphocytes [#/volum e] in Blood by Automated count [facility] Lymphocytes/100 leukocytes in Blood by Automated count [facility] MCH [Entitic mass] b y Automated count [facility] MCHC [Mass/volume] b y Automated count [facility] MCV [Entitic volume] by Automated count [facility] Monocytes [#/volume] in Blood by Automated count [facility] Monocytes/100 leukoc ytes in Blood by Automated count [facility] End: 10-12-2024 MR Cervical spine WO contrast MRI CERVICAL SPINE WO IVCON Radiology Routine Spinal stenosis of cervical region 1 Occurrences starting 09/13/2023 until 10/12/2024 [facility] Work Phone: Comment on above: 1 Occurrences starti ng 09/13/2023 until 10/12/2024 End: 10-12-2024 MR Lumbar spine WO contrast MRI LUMBAR SPINE WO IVCON Radiology Routine Spinal stenosis of lumbar region with neurogenic claudication 1 Occurrences starting 09/13/2023 until 10/12/2024 [facility] Work Phone: Comment on above: 1 Occurrences starti ng 09/13/2023 until 10/12/2024 End: 10-12-2024 MR Thoracic spine WO contrast MRI THORACIC SPINE WO IVCON Radiology Routine Abnormal posture 1 Occurrences starting 09/13/2023 until 10/12/2024 [facility] Work Phone: Comment on above: 1 Occurrences starti ng 09/13/2023 until 10/12/2024 Neutrophils [#/volum e] in Blood by Automated count [facility] Neutrophils/100 leukocytes in Blood by Automated count [facility] Nucleated erythrocyt es [Presence] in Blood by Automated count [facility] Patient Education Know your Meds [facility] Work Phone: Patient referral [facility] Work Phone: Platelet mean volume [Entitic volume] in Blood by Automated count [facility] Platelets [#/volume] in Blood [facility] XR Pelvis 1 or 2 Views XR pelvis 1 or 2 views Imaging Routine Closed fracture of superior ramus of left pubis, initial encounter ([facility]) 10/01/2024 8:32 AM EDT [facility] XR Wrist - right 3 Views XR wris t 3+ views right Imaging Routine Right wrist pain 07/30/2024 7:58 AM EST [facility] Work Phone: XR Wrist - right 3 Views XR wris t 3+ views right Imaging Routine Right wrist pain 08/06/2024 8:11 AM EST [facility] Work Phone: XR Wrist - right 3 Views XR wris t 3+ views right Imaging Routine Other closed intra-articular fracture of distal end of right radius with routine healing, subsequent encounter 10/01/2024 8:32 AM EDT [facility] Work Phone: [facility] Immunizations Immunization Date Immunization Notes Care Provider Fa [facility] 03-14-2021 influenza virus vacc ine, unspecified formulation David Valente MD Work Phone: [facility] Payers Date Payer Category Payer Medicare [id number] 2024 Self-pay [id number] 2023 Unknown 2020 Private Health Insurance [id number] 2011 Medicare [id number] 1959 Medicare [id number] 1959 Unknown [id number] 1946 Unknown [id number] 2.16.84 0.1.384533.3.579.2.593 1946 Unknown [id number] 2.16.84 0.1.044516.3.579.2.593 1946 Unknown [id number] 2.16.84 0.1.439529.3.579.2.593 1946 Unknown [id number] 2.16.84 0.1.256524.3.579.2.593 1946 Unknown [id number] 2.16.84 0.1.995005.3.579.2.593 1946 Unknown [id number] 2.16. 840.1.315414.3.579.2.196 1946 Unknown [id number] 2.16. 840.1.021093.3.579.2.196 1946 Unknown [id number] 2.16. 840.1.642451.3.579.2.196 1946 Unknown [id number] 2.16. 840.1.556121.3.579.2.196 1946 Unknown [id number] 2.16. 840.1.669304.3.579.2.196 1946 Unknown [id number] 2.16.8 40.1.553588.3.579.2.727 1946 Unknown [id number] 2.16.8 40.1.334938.3.579.2.727 1946 Unknown [id number] 2.16.8 40.1.229868.3.579.2.727 1946 Unknown [id number] 2.16.8 40.1.185598.3.579.2.727 1946 Unknown [id number] 2.16.8 40.1.805301.3.579.2.727 1946 Unknown [id number] 2.16.8 40.1.580448.3.579.2.727 1946 Unknown [id number] 2.16.8 40.1.814098.3.579.2.727 1946 Unknown [id number] 2.16.84 0.1.937461.3.579.2.1259 1946 Unknown [id number] 2.16.84 0.1.122501.3.579.2.1259 1946 Unknown [id number] 2.16.84 0.1.289510.3.579.2.1259 1946 Unknown [id number] 2.16.84 0.1.662330.3.579.2.1259 1946 Unknown [id number] 2.16.84 0.1.885919.3.579.2.1259 1946 Unknown [id number] 2.16.84 0.1.364560.3.579.2.1259 1946 Unknown [id number] 2.16.84 0.1.128855.3.579.2.1259 1946 Unknown [id number] 2.16.84 0.1.375959.3.579.2.1259 1946 Unknown [id number] 2.16.84 0.1.465513.3.579.2.1259 1946 Unknown [id number] 2.16.84 0.1.417066.3.579.2.1259 1946 Unknown [id number] 2.16.84 0.1.269224.3.579.2.1259 1946 Unknown [id number] 2.16.84 0.1.769577.3.579.2.1259 1946 Unknown [id number] 2.16.84 0.1.434504.3.579.2.1259 1946 Unknown [id number] 2.16.84 0.1.306105.3.579.2.1259 1946 Unknown [id number] 2.16.84 0.1.802384.3.579.2.1259 1946 Unknown [id number] 2.16.84 0.1.515237.3.579.2.1259 Medicare [id number] Unknown [id number] 2.16.8 40.1.070220.3.579.2.531 Unknown [id number] 2.16.8 40.1.422839.3.579.2.531 Unknown [id number] 2.16.8 40.1.978213.3.579.2.531 Unknown [id number] 2.16.8 40.1.674593.3.579.2.531 Unknown [id number] 2.16.8 40.1.195927.3.579.2.531 Social History Date Type Detail [facility] Work Phone: Start: 1945 Sex Assigned At Female [facility] Start: 03-04-2020 End: 02-22-2024 Tobacco smoking status Ex-smoker (finding) [facility] Start: 09-06-2023 End: 09-13-2023 Sex Assigned At Female [facility] Start: 07-02-1958 End: 04-30-2019 History of tobacco use Current smoker [facility] Start: [birth year]-02-1957 End: 04-30-2019 History of tobacco use Cigarette Smoker [facility] Start: 09-06-2023 End: 09-13-2023 Cigarettes smoked current (pack per day) - Reported 0.5 [facility] Start: 09-13-2023 End: 02-22-2024 Tobacco use and exposure Smokeless tobacco non-user [facility] Start: 09-13-2023 End: 07-16-2024 Alcohol intake Current non-drinker of alcohol (finding) [facility] Adult Depression Screening Assessment 0 [facility] Start: 1945 Sex Assigned At Not on file [facility] Start: 10-25-2023 End: 07-30-2024 Tobacco smoking status NHIS Never smoked tobacco [facility] Start: 10-29-2023 End: 10-01-2024 Alcoholic beverage intake Lifetime non-drinker (finding) [facility] Start: 10-25-2023 Alcohol Comment caffeine: 1-2 cups per day [facility] Tobacco smoking stat us ALIS Unknown if ever smoked [facility] Work Phone: Start: 07-26-2024 End: 09-05-2024 Sex Female (finding) [facility] Start: 09-04-2024 SDOH Follow up SDOH Follow up [facility] Work Phone: Medical Equipment Procedure Code Equipment Code Equipment [...] Non Biological Wrist R FDA Start: 08-12-2024 Goals Date Patient Goal Desired Activity /State Functional Status Date Assessment Result Facility 09-05-2024 Functional status Patient at Baseline [facility] Work Phone: 08-25-2024 Functional status Patient at Baseline [facility] Work Phone: 08-07-2024 Functional Status No [facility] 08-03-2024 Functional Status N/A [facility] 07-26-2024 Functional Status N/A [facility] 07-24-2024 Functional Status N/A [facility] 07-16-2023 Functional Status N/A [facility] 06-23-2023 Functional Status N/A [facility] 06-23-2023 Functional Status [facility] 08-20-2014 Are you deaf, or do you have serious difficulty hearing No 08/20/2014 7:00 AM Felicia Guillory LPN No [facility] 08-20-2014 Are you blind, or do you have serious difficulty seeing, even when wearing glasses No 08/20/2014 7:00 AM EDFelicia Perrin LPN No [facility] 08-20-2014 Do you have serious difficulty walking or climbing stairs No 08/20/2014 7:00 AM Felicia Guillory LPN No [facility] 08-20-2014 Do you have difficul ty dressing or bathing No 08/20/2014 7:00 AM Felicia Guillory LPN No [facility] 08-20-2014 Because of a physica l, mental, or emotional condition, do you have difficulty doing errands alone such as visiting a physician's office or shopping No 08/20/2014 7:00 AM Felicia Guillory LPN No [facility] Mental Status Date Assessment Result Facility 09-05-2024 Cognitive function Cognitive Sta tus Patient at Baseline [facility] Work Phone: 08-25-2024 Cognitive function Cognitive Sta tus Patient at Baseline [facility] Work Phone: 08-20-2014 Because of a physica l, mental, or emotional condition, do you have serious difficulty concentrating, remembering, or making decisions No 08/20/2014 7:00 AM Felicia Guillory LPN No [facility] Clinical Notes 06-23-2023 to 10-01-2024 Teodora David - 10/01/2024 9:45 AM EDTTelephone Encounter - Kimmy Jaramillo RN - 09/24/2024 12:38 PM EDTTelephone Encounter - Kimmy Jaramillo RN - 09/24/2024 12:38 PM EDT Note Date & Type Note Facility 10-01-2024 History of Presen t illness Narrative Images from the original note were not included. [place] is a 79 y.o. female presents with chief complaint of right wrist open reduction and internal fixation with left superior pubic rami fracture. HPI: Judith returns here today with her granddaughter once again. She is doing well with regard to the wrist. She reports no new or interval symptoms. She has been advancing her activities as is otherwise tolerated. SUBJECTIVE: MEDICATIONS: Current Outpatient Medications Medication Instructions ALPRAZolam [...] TIMES A DAY (7AM, 12PM AND 5PM) [facility] Acetaminophen Ex St 500 mg, Every 6 hours PRN cyclobenzaprine (FLEXERIL) 10 mg, 2 times daily PRN gabapentin (NEURONTIN) 300 mg, 3 times daily hydrALAZINE (Apresoline) 50 MG tablet TAKE 1 TABLET BY MOUTH TWICE A DAY WITH FOOD FOR 30 DAYS hydroCHLOROthiazide (HYDRODIURIL) 25 mg, Daily RT KLOR-CON 20 MEQ ER tablet 1 tablet, 2 times daily with meals lisinopril 40 mg, Daily RT Lutein-Zeaxanthin 25-5 MG capsule 1 capsule metoprolol tartrate (LOPRESSOR) 100 mg, 2 times daily Misc. Devices (Platform Walker Attachment) misc 1 Device, Does not apply, Daily, Patient requires RIGHT Platform for FWW d/t R wrist Fx omeprazole (PRILOSEC) 20 mg, Daily before breakfast oxyCODONE-acetaminophen (Percocet) 5-325 MG tablet pantoprazole (PROTONIX) 40 mg, Daily before breakfast phenazopyridine (PYRIDIUM) 200 mg, 3 times daily with meals potassium chloride CR (Klor-Con) 10 MEQ ER tablet 20 mEq, 2 times daily pravastatin (PRAVACHOL) 20 mg, Daily rasagiline (AZILECT) 1 mg, Oral, Daily rOPINIRole (REQUIP) 0.5 mg, Nightly Sinemet 25-100 MG tablet 1 tablet, 3 times daily spironolactone (Aldactone) 50 MG tablet TAKE 1 TABLET BY MOUTH EVERY DAY FOR 3 DAYS sucralfate (Carafate) 1 g tablet TAKE 1 TABLET BY MOUTH 4 TIMES A DAY ON AN EMPTY STOMACH FOR 7 DAYS UNABLE TO FIND HANDICAP PLACARD zinc gluconate 50 MG tablet Daily ALLERGIES: Allergies Allergen Reactions Trimethoprim Shortness of breath Sulfa Antibiotics SURGICAL HISTORY: Past Surgical History: Procedure Laterality Date ORIF WRIST FRACTURE Right 08/12/2024 DAP SPLENECTOMY, TOTAL FAMILY HISTORY: Family History Problem Relation Name Age of Onset Hypertension Mother Stroke Mother Cancer Father Other (hearing deficiency) Other Cancer Sibling Stroke Sibling SOCIAL HISTORY: Social History Tobacco Use Smoking status: Never Smokeless tobacco: Never Vaping Use Vaping status: Never Used Substance Use Topics Alcohol use: Never Comment: caffeine: 1-2 cups per day Drug use: Never Depression: Not at risk (11/27/2023) Received from [facility] PHQ-2 Patient Health Questionnaire-2 Score: 0 REVIEW OF SYMPTOMS: The review of systems, history and current medications list are all reviewed today. OBJECTIVE: Visit Vitals Ht 5' 5 Wt 108 lb BMI 17.97 kg/m Smoking Status Never BSA 1.5 m Physical Exam Her orthopedic exam here today shows no tenderness to palpation at the wrist. Swelling is down. Range of motion is approaching full. Her neurocirculatory status is overall grossly intact. With regard to the hip, internal and external rotation is without a lot of difficulty. She has no pain with axial compression on either side. The calf and thigh are supple. X-ray AP, lateral and oblique of the right wrist total of three views with permanent images are saved to the record does show abundant healing and consolidation over the wrist fracture. There is no change in position or alignment of the plate or screws. No new or further fracture noted. X-rays AP pelvis does show some apparent change at the superior ramus. This does appear to have shifted both superiorly and medially versus fairly comparable films. Difficult to ascertain for healing. She does have the osteopenia, likely clinical osteoporosis. ASSESSMENT AND PLAN: Assessment/Plan Status post right wrist open reduction and internal fixation with left superior pubic rami fracture. The findings are discussed. The treatment alternatives are outlined. We did recommend supportive care for her. She may come out of the brace and has no restrictions at the wrist. This is delineated on a script for the home health individuals. She may bear weight as tolerated through the wrist. We did discuss the pelvis. The change on pelvis x-ray and clinically she is doing well and we would not evaluate this any further. We will see her back in another month for likely a final x-ray and check of the pelvis. She may take it off her platform walker. We did encourage her granddaughter to define this with Jannette Ornelas. They also describe that she was given a bariatric walker. This lady is very thin and petite in stature, that is an appropriate device. They will also confer with Jannette on this. Her return here with myself is as described. Cosigned by Supa Owen DO at 10/06/2024 7:10 AM EDT documented in this encounter [facility] 09-24-2024 Telephone encount er Note ORIF R wrist 08/12/24,Fx pubic rami 09/02/24, JIMI 09/10/24 Patricia [place]. Would like refill pain Percocet, only has a couple left. She is using them at night, and the pain in her pelvis is bothering her to the point where I do not know that the Tylenol and Ibuprofen Are really touching that pain. [facility] 09-24-2024 Miscellaneous Notes Formattin g of this note might be different from the original. ORIF R wrist 08/12/24,Fx pubic rami 09/02/24, JIMI 09/10/24 Patricia [place]. Would like refill pain Percocet, only has a couple left. She is using them at night, and the pain in her pelvis is bothering her to the point where I do not know that the Tylenol and Ibuprofen Are really touching that pain. documented in this encounter [facility] 09-10-2024 History of Presen t illness Narrative Patient will require the use of a front wheeled walker for ADLs and safety both within the home and for community distances. Patient requires the use of the walker to decrease fall risk and improve safety. Images from the original note were not included. Judith Land is a 79 y.o. female presents with chief complaint of follow up right wrist open reduction and internal fixation with new complaint of left hemipelvic fracture. HPI: Judith is a 79-year-old white female accompanied by her granddaughter here today for evaluation and follow up of her right wrist. She did have her wrist cared for in an open reduction and internal fixation format roughly one month ago. She has had no follow up or care related to this. It sounds as if she has been in and out of the hospital with a urinary tract infection. She then did sustain a fall where she actually broke her pelvis. She was in a nursing facility for a period of time, relatively poor history on all of this. She is still falling at home. This is happening on occasion. She has had no further care or treatment to speak of. SUBJECTIVE: MEDICATIONS: Current Outpatient Medications Medication Instructions ALPRAZolam [...] TIMES A DAY (7AM, 12PM AND 5PM) [facility] Acetaminophen Ex St 500 mg, Every 6 hours PRN cyclobenzaprine (FLEXERIL) 10 mg, 2 times daily PRN gabapentin (NEURONTIN) 300 mg, 3 times daily KLOR-CON 20 MEQ ER tablet 1 tablet, 2 times daily with meals lisinopril-hydroCHLOROthiazide 20-25 MG tablet 1 tablet, Daily metoprolol tartrate (LOPRESSOR) 100 mg, 2 times daily Misc. Devices (Platform Walker Attachment) misc 1 Device, Does not apply, Daily, Patient requires RIGHT Platform for FWW d/t R wrist Fx omeprazole (PRILOSEC) 20 mg, Daily before breakfast [...] 7 DAYS UNABLE TO FIND HANDICAP PLACARD ALLERGIES: Allergies Allergen Reactions Trimethoprim Shortness of breath Sulfa Antibiotics SURGICAL HISTORY: Past Surgical History: Procedure Laterality Date ORIF WRIST FRACTURE Right 08/12/2024 DAP SPLENECTOMY, TOTAL FAMILY HISTORY: Family History Problem Relation Name Age of Onset Hypertension Mother Stroke Mother Cancer Father Other (hearing deficiency) Other Cancer Sibling Stroke Sibling SOCIAL HISTORY: Social History Tobacco Use Smoking status: Never Smokeless tobacco: Never Vaping Use Vaping status: Never Used Substance Use Topics Alcohol use: Never Comment: caffeine: 1-2 cups per day Drug use: Never Depression: Not at risk (11/27/2023) Received from [facility] PHQ-2 Patient Health Questionnaire-2 Score: 0 REVIEW OF SYMPTOMS: The review of systems, history and current medications list are all reviewed today. OBJECTIVE: Visit Vitals Ht 5' 5 Wt 108 lb BMI 17.97 kg/m Smoking Status Never BSA 1.5 m Physical Exam Her orthopedic exam reveals general deconditioning. She has no deformity at the level of the wrist. No ecchymosis. Swelling is down. She does still have retained nylon sutures from the time of her surgical care. No findings of the left upper extremity. With regard to her hips, gentle internal and external rotation is without significant pain, a little bit of discomfort with axial compression. This is minimal in nature. Her neurocirculatory status is overall grossly intact. The calf and thigh are supple. Examination of the x-ray AP pelvis done here today single view with permanent images are saved to the record does show the superior pubic rami fracture. There is some slight displacement noted. Some comminution noted. The bone is osteopenic, likely osteoporotic. No evidence of further fracture or other osseous abnormality. X-ray of the right wrist AP, lateral and oblique total of three views with permanent images are saved to the record does show the evidence of the distal radius fracture. It does appear to be fixated accordingly. No evidence of displacement or further finding of significance. No change in the hardware is noted. ASSESSMENT AND PLAN: Assessment/Plan Status post right wrist open reduction and internal fixation with left superior pubic rami fracture, status post fall. Osteopenia. The findings are discussed. We did define things here today for her and did recommend supportive care overall. With regard to her wrist area, we did place her in a L3908 removable Velcro wrist splint. This does appear to be clinically indicated and cost effective. A right L3908 Wrist Hand Orthosis, Wrist Extension Control Cock-Up, non-molded, prefabricated, off the shelf brace was applied. This brace will be used to immobilize the wrist and allow for full and complete healing of the wrist. The function of the device is to provide support, decrease edema, control motion at wrist joint. The goals of the device are to decrease pain decrease inflammation, increase stability and to allow the patient to continue to use hand and wrist to complete ADLs. The device is medically necessary for the condition, symptoms and diagnosis. It was dispensed and fitted for the patient, and it fit properly. The patient was educated as to proper use and care, and this was reviewed in detail. Written instructions and warranty information were given with the device. A receipt for the device is on file. The current supplier standards were given to the patient. [employer] patient agreement was completed at time of dispensement. The patient stated that the device was comfortable when fitted in the office. At the time of dispensement, the device was suitable and not substandard. She may have the brace off for routine easy gentle range of motion such as eating a meal, handling a drinking utensil including hygiene as well as showering. We did discuss the alternative of formal therapy for the hand. She apparently has home health coming in, but it is not defined as to whether this is physical, occupational or both. We did give indication of some range of motion exercise gently on a script pad for the home health individuals. We did discuss the hip area, hemipelvic fracture. With this, we would recommend weight bearing as tolerated but protected with a standard walker. We would use a platform to the right side. We will go ahead and get this set up for her through DME provider. This device will be used to aid in safety as this individual has had multiple falls. This would allow taoism of ambulation in a safe manner while protecting the wrist fracture and open reduction and internal fixation. The length of time needed for this would likely be approximately a three month course overall. She does voice understanding of this. We will see her back in three weeks for x-ray and recheck of both areas once again. They will call or return should she have any escalating pain or difficulty to speak of whatsoever. All questions are otherwise answered at length. We did explain to the patient and her granddaughter that all of this information will be in the medical record through [facility] [employer] for the patient's multiple family members to view at their discretion with the patient's consent. All questions are again answered. Follow up letter sent to Dr. Sams. Cosigned by Supa Owen DO at 09/12/2024 12:33 PM EDT documented in this encounter [facility] 09-05-2024 Discharge summary Note Date/Time September 05, 2024 1:01pm [facility] [address] [place] [address] Discharge Summary Signed Patient: Judith Land MR#: [id number] : 1945 Acct:[id number] Age/Sex: 79 / F Adm Date: 5 Loc: Room: 0B1657-[address]: Pa Neil MD Copies to: MD Kavon Champion MD Elena Turovskaya, APRN Joseph Riley, MD~ Providers Date of Discharge: 09/05/24 Discharging Provider: Didi Navarro Primary Care Provider: Kavon Sams Consults: 08/25/24 15:48 Consult to Adult Hospitalist Routine Comment: Consulting Provider: Community Hospitalist (Adult) Reason For Exam: HTN Has Provider Been Notified: Yes Date of Notification: 08/25/24 Time of Notification: 15:55 Consult to Dietitian Routine Comment: Reason for Consult: PO Supplement Eval&Order Consult to Occupational Therapy Routine Comment: Physician Instructions: Consult to OT for:: Evaluation and Treat Consult to Physical Therapy Routine Comment: Physician Instructions: Consult to PT for:: Evaluation and Treat Speech Admit Screen Routine Comment: 08/25/24 17:22 Consult to Speech Therapy Routine Comment: Reason for ST Consult: Bedside Swallow Eval & Tx Cognitive Eval & Tx Speech/Language Eval & Tx Diet per ST Recommendations: Yes Modified Barium Swallow Study, If Recommended: Yes 09/01/24 09:57 Consult to Neurology Routine Comment: Consulting Provider: [facility] Reason For Exam: Altered mental status. H/o Parkinsons Has Provider Been Notified: Yes Date of Notification: 09/01/24 Time of Notification: 10:18 09/02/24 20:58 Consult to Orthopedic Surgery Routine Comment: Consulting Provider: [facility] Reason For Exam: L inferior and superior pubic rami fx Has Provider Been Notified: Yes Date of Notification: 09/03/24 Time of Notification: 08:15 Discharge Diagnosis (1) Parkinsons disease: (2) Metabolic encephalopathy: (3) Acute UTI: (4) HTN (hypertension): (5) Anxiety: (6) Impaired mobility and activities of daily living: (7) Fracture of left superior pubic ramus: Final Diagnosis Final Discharge Diagnosis: As above Summary Hospital Course Hospital course: Ms. Land is a 79 year old female with a PMH of Parkinson disease, HTN, HLD, CAD, anxiety, RLS, chronic pain who was admitted to acute rehab due to multifactorial functional decline in the setting of an acute UA with hospital course complicated by metabolic encephalopathy. She initially presented to the hospital due to confusion for several days. She had been treated outpatient for about a month for a UTI without resolution of her infection. While hospitalized,she became acutely agitated requiring sedatives and 1:1. Gradually improved. Urine culture grew Pseudomonas for which she was started on Meropenem. Of note, the patient had a recent fall with fracture of the right arm and is in a splint. Rehab course was complicated by continued confusion and impulsiveness requiring supervision. Obtain a head CT on 09/01/2024 which demonstrated no acute intracranial pathology. Patient did sustain a fall over the weekend and subsequently started complaining of some groin pain with ambulation. Hip x-ray was obtained demonstrating fractures involving the left superior and inferior pubic ramus. Orthopedic surgery recommended conservative management with range of motion and weightbearing as tolerated. Functionally she did well while up here. At discharge she is ambulatory short distances with about an assistive device and mod assist from therapy. Min to mod with transfers and bed mobility. Patient will be discharged home with [facility] health services. No additional DME is needed at discharge. Condition Condition at Discharge: Stable Time Spent with Patient Time spent providing/coordinating discharge services (# min): 35 Specific discharge activities: Total time spent discharging this patient > 30 minutes Greater than 30 minutes spent preparing the patient for discharge including the following: Discussion of the hospital stay with patient and/or family Instructions for continuing care to all relevant caregivers Reviewing discharge plan with medical staff, social work, care management, and nursing staff Supervision of discharge paperwork, medication reconciliation, prescriptions, and outpatient appointments Prescribed necessary DME at discharge when indicated Discharge Plan Discharge Plan Patient Disposition: Home Instructions: Know your Meds Prescriptions: New acetaminophen 500 mg Tablet 500 mg PO Q8H Qty: 0 0RF Rx Discharge Order Notice 1 ea miscellaneous ONCE Qty: 0 0RF Continued alprazolam [Xanax] 1 mg tablet 1 mg PO QHS PRN (Reason: sleep) carbidopa-levodopa [Sinemet] 10-100 mg tablet 1 tab PO TID potassium chloride [Klor-Con M20] 20 mEq tablet,ER particles/crystals 20 meq PO BID ascorbic acid (vitamin C) 1,000 mg capsule 1 g PO DAILY cholecalciferol (vitamin D3) 125 mcg (5,000 unit) capsule 125 mcg PO DAILY zinc gluconate 50 mg tablet 50 mg PO DAILY aspirin 81 mg tablet,chewable 81 mg PO DAILY lutein-zeaxanthin 25-5 mg capsule 1 cap PO DAILY multivitamin Tablet 1 tab PO DAILY rasagiline 1 mg tablet 1 mg PO DAILY pantoprazole 40 mg tablet,delayed release (DR/EC) 40 mg PO QAM amantadine HCl 100 mg tablet 100 mg PO TID hydralazine 25 mg Tablet 25 mg PO BID Qty: 60 0RF amlodipine 5 mg Tablet 5 mg PO DAILY Qty: 0 0RF ropinirole 0.25 mg Tablet 0.25 mg PO QHS Qty: 0 0RF Discontinued quetiapine 25 mg Tablet 25 mg PO QHS Qty: 0 0RF meropenem 1 gram Recon Soln 1 g IV Q12H 1 Days Qty: 0 0RF Other Ambulatory Orders: Initiate Home Health (Routine) Timeframe: 1 Day Location: Determined by Patient Ordered By: Pa Neil Follow Up: [facility] [Outside] (Call to schedule follow up appointment with Neurology after discharge) Henrry Jon MD [Active Staff] - (can see in 4 weeks in office, for left superior inferior pubic rami fracture (non-surgical)) Supa Owen DO [Courtesy/Consulting Physician] - (Call to schedule follow-up after discharged from rehab (original f/u was 08/25). ) Kavon Sams MD [Primary Care Provider] - 09/11/24 10:45 am (Primary Care Provider) Pa Neil MD [Active Staff] - (Follow up with rehab physician as needed) Continuity of Care Document Health Concerns: A [facility] screening has identified you as FRAIL or AT RISK FOR FRAILTY. This puts you at a higher risk for infection, illness, falls,and other injuries. Here are four ways to help you reduce your risk of frailty: 1. IDENTIFY EARLY SIGNS OF FRAILTY ? Discuss contributing factors and concerns with your doctor 2. BE ACTIVE ? Walking and light strengthening exercises will help reduce weakness 3. EAT WELL ? Aim for three healthy meals a day that are high in protein 4. THINK POSITIVE ? Keep your mind active by being sociable and continuing to learn References: Stay Strong: Four Ways to Beat the Frailty Riskhttps://www.[facility].org/health/wellness- and-prevention/clob-atotvd-jcsc-befo-vs-ynpb-the -frailty-risk Exam Physical Exam Vital Signs: Temp Pulse Resp BP Pulse Ox O2 Del Method 98.4 F 104 H 16 116/66 95 Room Air 09/05/24 06:55 09/05/24 06:55 09/05/24 06:55 09/04/24 14:58 09/05/24 06:55 09/05/24 07:30 Narrative: General: Awake, alert, oriented x3 HENT: Normal to inspection, normocephalic, atraumatic Eyes: PERRL, normal conjunctiva and sclera Neck: Normal ROM, normal visual inspection. Trachea midline. Cardio: Regular, tachycardic Respiratory: Clear to auscultation bilaterally. Normal respiratory effort. No respiratory distress. GI: Abdomen soft, nontender, nondistended, active bowel sounds x4 quadrants Neuro: CN II-XII intact. Strength 5/5, equal bilaterally Extremities: Upper extremity tremors. Right upper extremity cast intact. Normal perfusion to the fingertips. No complaints of numbness or tingling. No edema, erythema, cyanosis in upper or lower extremities Psych: Mood and affect appropriate. Normal speech. <Statement entered by Ramsey Monroe MD - 09/05/24 13:01> This documentation has been reviewed and approved. Documented By: Didi Navarro APRN 09/05/24 1 718 Signed By: <Electronically signed by MIGUEL Navarro> 09/05/24 1253 <Electronically signed by Ramsey Monroe MD> 09/05/24 1300 [facility] Work Phone: [phone]) 516-858103-28-2025 [place] [id number] Discharge Summary Signed Patient: Judith Land MR#: [id number] : 1945 Acct:[id number] Age/Sex: 79 / F Adm Date: 5 Loc: Room: 6R3653-[address]: Pa Neil MD Copies to: MD Kavon Champion MD Elena Turovskaya, MIGUEL Monroe MD~ Providers Date of Discharge: 09/05/24 Discharging Provider: Didi Navarro Primary Care Provider: Kavon Sams Consults: 08/25/24 15:48 Consult to Adult Hospitalist Routine Comment: Consulting Provider: [facility] Hospital[facility] (Adult) Reason For Exam: HTN Has Provider Been Notified: Yes Date of Notification: 08/25/24 Time of Notification: 15:55 Consult to Dietitian Routine Comment: Reason for Consult: PO Supplement Eval&Order Consult to Occupational Therapy Routine Comment: Physician Instructions: Consult to OT for:: Evaluation and Treat Consult to Physical Therapy Routine Comment: Physician Instructions: Consult to PT for:: Evaluation and Treat Speech Admit Screen Routine Comment: 08/25/24 17:22 Consult to Speech Therapy Routine Comment: Reason for ST Consult: Bedside Swallow Eval & Tx Cognitive Eval & Tx Speech/Language Eval & Tx Diet per ST Recommendations: Yes Modified Barium Swallow Study, If Recommended: Yes 09/01/24 09:57 Consult to Neurology Routine Comment: Consulting Provider: [facility] Reason For Exam: Altered mental status. H/o Parkinsons Has Provider Been Notified: Yes Date of Notification: 09/01/24 Time of Notification: 10:18 09/02/24 20:58 Consult to Orthopedic Surgery Routine Comment: Consulting Provider: [facility] Reason For Exam: L inferior and superior pubic rami fx Has Provider Been Notified: Yes Date of Notification: 09/03/24 Time of Notification: 08:15 Discharge Diagnosis (1) Parkinsons disease: (2) Metabolic encephalopathy: (3) Acute UTI: (4) HTN (hypertension): (5) Anxiety: (6) Impaired mobility and activities of daily living: (7) Fracture of left superior pubic ramus: Final Diagnosis Final Discharge Diagnosis: As above Summary Hospital Course Hospital course: Ms. Land is a 79 year old female with a PMH of Parkinson disease, HTN, HLD, CAD, anxiety, RLS, chronic pain who was admitted to acute rehab due to multifactorial functional decline in the setting of an acute UA with hospital course complicated by metabolic encephalopathy. She initially presentedto the hospital due to confusion for several days. She had been treated outpatient for about a month for a UTI without resolution of her infection. While hospitalized,she became acutely agitated requiring sedatives and 1:1. Gradually improved. Urine culture grew Pseudomonas for which she was started on Meropenem. Of note, the patient had a recent fall with fracture of the right arm and is in a splint. Rehab course was complicated by continued confusion and impulsiveness requiring supervision. Obtaina head CT on 09/01/2024 which demonstrated no acute intracranial pathology. Patient did sustain a fall over the weekend and subsequently started complaining of some groin pain with ambulation. Hip x-ray was obtained demonstrating fractures involving the left superior and inferior pubic ramus. Orthopedic surgery recommended conservative management with range of motion and weightbearing as tolerated. Functionally she did well while up here. At discharge she is ambulatory short distances with about an assistive device and mod assist from therapy. Min to mod with transfers and bed mobility. Patient will be discharged home with [facility] services. No additional DME is needed atdischarge. Condition Condition at Discharge: Stable Time Spent with Patient Time spent providing/coordinating discharge services (# min): 35 Specific discharge activities: Total time spent discharging this patient > 30 minutes Greater than 30 minutes spent preparing the patient for discharge including the following: Discussion of the hospital stay with patient and/or family Instructions for continuing care to all relevant caregivers Reviewing discharge plan with medical staff, social work, care management, and nursing staff Supervision of discharge paperwork, medication reconciliation, prescriptions, and outpatient appointments Prescribed necessary DME at discharge when indicated Discharge Plan Discharge Plan Patient Disposition: Home Instructions: Know your Meds Prescriptions: New acetaminophen 500 mg Tablet 500 mg PO Q8H Qty: 0 0RF Rx Discharge Order Notice 1 ea miscellaneous ONCE Qty: 0 0RF Continued alprazolam [Xanax] 1 mg tablet 1 mg PO QHS PRN (Reason: sleep) carbidopa-levodopa [Sinemet] 10-100 mg tablet 1 tab PO TID potassium chloride [Klor-Con M20] 20 mEq tablet,ER particles/crystals 20 meq PO BID ascorbic acid (vitamin C) 1,000 mg capsule 1 g PO DAILY cholecalciferol (vitamin D3) 125 mcg (5,000 unit) capsule 125 mcg PO DAILY zinc gluconate 50 mg tablet 50 mg PO DAILY aspirin 81 mg tablet,chewable 81 mg PO DAILY lutein-zeaxanthin 25-5 mg capsule 1 cap PO DAILY multivitamin Tablet 1 tab PO DAILY rasagiline 1 mg tablet 1 mg PO DAILY pantoprazole 40 mg tablet,delayed release (DR/EC) 40 mg PO QAM amantadine HCl 100 mg tablet 100 mg PO TID hydralazine 25 mg Tablet 25 mg PO BID Qty: 60 0RF amlodipine 5 mg Tablet 5 mg PO DAILY Qty: 0 0RF ropinirole 0.25 mg Tablet 0.25 mg PO QHS Qty: 0 0RF Discontinued quetiapine 25 mg Tablet 25 mg PO QHS Qty: 0 0RF meropenem 1 gram Recon Soln 1 g IV Q12H 1 Days Qty: 0 0RF Other Ambulatory Orders: Initiate Home Health (Routine) Timeframe: 1 Day Location: Determined by Patient Ordered By: Pa Neil Follow Up: [facility] [Outside] (Call to schedule follow up appointment with Neurology after discharge) Henrry Jon MD [Active Staff] - (can see in 4 weeks in office, for left superior inferior pubic rami fracture (non-surgical)) Supa Owen DO [Courtesy/Consulting Physician] - (Call to schedule follow-up after discharged fromrehab (original f/u was 08/25). ) Kavon Sams MD [Primary Care Provider] - 09/11/24 10:45 am (Primary Care Provider) Pa Neil MD [Active Staff] - (Follow up with rehab physician as needed) Continuity of Care Document Health Concerns: A [facility] screening has identified you as FRAIL or AT RISK FOR FRAILTY. This puts you at a higher risk for infection, illness, falls,and other injuries. Here are four ways to help you reduce your risk of frailty: 1. IDENTIFY EARLY SIGNS OF FRAILTY ? Discuss contributing factors and concerns with your doctor 2. BE ACTIVE ? Walking and light strengthening exercises will help reduce weakness 3. EAT WELL ? Aim for three healthy meals a day that are high in protein 4. THINKPOSITIVE ? Keep your mind active by being sociable and continuing to learn References: Stay Strong:Four Ways to Beat the Frailty Riskhttps://www.[facility].org/health/kpgceuym-iaa-xctatscfsu/sta r-sbgtfq-yguw-dvmb-rw-xjrt-the -frailty-risk Exam Physical Exam Vital Signs: Temp Pulse Resp BP Pulse Ox O2 Del Method 98.4 F 104 H 16 116/66 95 Room Air 09/05/24 06:55 09/05/24 06:55 09/05/24 06:55 09/04/24 14:58 09/05/24 06:55 09/05/24 07:30 Narrative: General: Awake, alert, oriented x3 HENT: Normal to inspection, normocephalic, atraumatic Eyes: PERRL, normal conjunctiva and sclera Neck: Normal ROM, normal visual inspection. Trachea midline. Cardio: Regular, tachycardic Respiratory: Clear to auscultation bilaterally. Normal respiratory effort. No respiratory distress. GI: Abdomen soft, nontender, nondistended, active bowel sounds x4 quadrants Neuro: CN II-XII intact. Strength 5/5, equal bilaterally Extremities: Upper extremity tremors. Right upper extremity cast intact. Normal perfusion to the fingertips. No complaints of numbness or tingling. No edema, erythema, cyanosis in upper or lower extremities Psych: Mood and affect appropriate. Normal speech. This documentation has been reviewed and approved. Documented By: Didi Navarro, MIGUEL 09/05/24 1 245 Signed By: 09/05/24 1253 09/05/24 1301 [facility]03-28-2025 Progress note Author Pa Neil [facility] Note Date/Time September 05, 2024 10: 11am [facility] [address] [place] [address] Physiatry(Rehab) Progress Note Signed Patient: Judtih Land MR#: [id number] : 1945 Acct:[id number] Age/Sex: 79 / F Adm Date: 5 Loc: Room: 2C8470-9 Type: ADM IN Attending Dr: Pa Neil MD Copies to: ~ Date of Service: 09/04/2024 Subjective Subjective Narrative: Ms. Land is a 79 year old female with a PMH of Parkinson disease, HTN, HLD, CAD, anxiety, RLS, chronic pain who presents to the rehab unit due to multifactorial functional decline in the setting of an acute UA with hospital course complicated by metabolic encephalopathy. She initially presented to the hospital due confusion for several days. She had been treated outpatient for about a month for a UTI without resolution of her infection. While hospitalized,she became acutely agitated requiring sedatives and 1:1. Gradually improved. Urine culture grew Pseudomonas for which she was started on Meropenem. OF note, the patient had a recent fall with fracture of the right arm and is in a splint. The patient lives with her daughter in a condo with 1 step to enter. Does not use an assistive device. This patient was seen and evaluated today. Family at bedside. She appears in no distress. Family had some questions today regarding patients recurrent UTIs. Gave advice including hydration, emptying bladder completely, proper hygiene. The patient is otherwise doing well. She does have a fracture of the radius and ulna on the right and family tells me that this was just recently repaired on August 12. They note that she was NWB post op but have not had follow up yet with Dr. Lyn. Interval history: Patient was seen and evaluated today. Sitting up in bed. She appears in no distress. Improving. Family at bedside. FI yesterday went well. Plan is for DC home tomorrow with family. Review of Systems Review of Systems All other systems reviewed & are negative unless noted below or in HPI Exam Physical Exam Vital Signs: Temp Pulse Resp BP Pulse Ox O2 Del Method 98.4 F 104 H 16 116/66 95 Room Air 09/05/24 06:55 09/05/24 06:55 09/05/24 06:55 09/04/24 14:58 09/05/24 06:55 09/05/24 06:55 Narrative: NAD. Sitting up in chair. Appears less confused today. answers questions appropriately Extremities well perfused No respiratory distress RRR Abdomen soft, non distended DELMER. Tremor appreciated in all 4 extremities Speech is normal, fluent Objective Labs 09/02/24 05:23 09/03/24 05:31 Medications and Allergies Allergies and Active Meds: Allergies Sulfa (Sulfonamide Antibiotics) Allergy (Verified 08/20/24 19:40) Difficulty Breathing sulfamethoxazole (From Bactrim) Allergy (Verified 08/20/24 19:40) Difficulty Breathing trimethoprim (From Bactrim) Allergy (Verified 08/20/24 19:40) Difficulty Breathing Active Medications Generic Name Dose Route Start Last Admin Trade Name Freq PRN Reason Stop Dose Admin Acetaminophen 1,000 mg 09/03/24 13:00 09/05/24 06:44 Acetaminophen 500 Mg Tablet PO 09/03/25 12:59 1,000 mg Q8H LLOYD Administration Al Hydrox/Mg Hydrox/Simethicone 30 ml 08/25/24 15:48 Mag Hydrox/Al Hydrox/Simeth 30 Ml Udc PO 08/25/25 15:47 Q4H PRN Indigestion Alprazolam 1 mg 08/25/24 15:53 09/04/24 20:29 Alprazolam 0.5 Mg Tablet PO 1 mg QHS PRN Administration sleep Amantadine HCl 100 mg 08/25/24 22:00 09/05/24 09:12 Amantadine 100 Mg Capsule PO 08/25/25 21:59 100 mg TID LLOYD Administration Amlodipine Besylate 10 mg 08/27/24 09:00 09/05/24 09:12 Amlodipine 10 Mg Tablet PO 08/27/25 08:59 10 mg DAILY LLOYD Administration Ascorbic Acid 1,000 mg 08/26/24 09:00 09/05/24 09:12 Ascorbic Acid 500 Mg Tablet PO 08/26/25 08:59 1,000 mg DAILY LLOYD Administration Aspirin 81 mg 08/26/24 09:00 09/05/24 09:11 Aspirin 81 Mg Tab.Chew PO 08/26/25 08:59 81 mg DAILY LLOYD Administration Bisacodyl 10 mg 08/25/24 15:48 Bisacodyl 10 Mg Supp.Rect WI 08/25/25 15:47 DAILY PRN Constipation Carbidopa/Levodopa 1 tab 09/01/24 12:00 09/05/24 06:44 Carbidopa/Levodopa 10-100 Mg 1 Tab Tablet PO 09/01/25 11:59 1 tab TID@0700,1200,1700 LLOYD Administration Docusate Sodium 100 mg 08/25/24 15:48 09/03/24 21:30 Docusate 100 Mg Capsule PO 08/25/25 15:47 100 mg BID PRN Administration Constipation Docusate Sodium 283 mg 08/25/24 15:48 Docusate Enema 283 Mg/5 Ml Enema WI 08/25/25 15:47 DAILY PRN Constipation Heparin Sodium (Porcine) 5,000 unit 08/25/24 21:00 09/05/24 09:12 Heparin 5,000 Unit/Ml Vial SUBCUT 08/25/25 20:59 5,000 unit Q12HR LLOYD Administration Hydralazine HCl 25 mg 08/25/24 21:00 09/05/24 09:12 Hydralazine 25 Mg Tablet PO 08/25/25 20:59 25 mg BID LLOYD Administration Lactulose 30 gm 08/25/24 15:48 Lactulose 20 Gm/30 Ml Udc PO 08/25/25 15:47 DAILY PRN Constipation Megestrol Acetate 400 mg 09/03/24 09:00 09/05/24 09:11 Megestrol Susp 400 Mg/10 Ml Udc PO 09/02/25 08:59 400 mg QAM LLOYD Administration Multivitamins 1 tab 08/26/24 09:00 09/05/24 09:12 Multivitamin 1 Tab Tablet PO 08/26/25 08:59 1 tab DAILY LLOYD Administration Ondansetron HCl 4 mg 09/01/24 14:16 09/01/24 14:21 Ondansetron Odt 4 Mg Tab.Rapdis PO 09/01/25 14:15 4 mg Q6HR PRN Administration Nausea And Vomiting Pantoprazole Sodium 40 mg 08/26/24 09:00 09/05/24 09:12 Pantoprazole 40 Mg Tablet.Dr PO 08/26/25 08:59 40 mg QAM LLOYD Administration Potassium Chloride 20 meq 08/25/24 21:00 09/05/24 09:33 Potassium Chloride Er 20 Meq Tab.Er.Prt PO 08/25/25 20:59 20 meq BID LLOYD Administration Rasagiline 1 mg 08/26/24 09:00 09/05/24 09:12 Rasagiline 1 Mg Tablet PO 08/26/25 08:59 1 mg DAILY LLOYD Administration Ropinirole HCl 0.25 mg 08/25/24 22:00 09/04/24 20:30 Ropinirole 0.25 Mg Tablet PO 08/25/25 21:59 0.25 mg QHS LLOYD Administration Sennosides 17.2 mg 08/26/24 12:00 09/03/24 21:30 Sennosides 8.6 Mg Tablet PO 08/26/25 11:59 17.2 mg DAILY@12 PRN Administration If no BM in 2 days Sodium Chloride 0 ml 08/25/24 15:48 08/27/24 05:40 Sodium Chloride 0.9 % 10 Ml Syringe IV-PUSH 08/25/25 15:47 10 ml PRN PRN Administration Flush Vitamin D 125 mcg 08/26/24 09:00 09/05/24 09:12 Cholecalciferol 125 Mcg (5,000 Units) Capsule PO 08/26/25 08:59 125 mcg DAILY LLOYD Administration Zinc Gluconate 50 mg 08/26/24 09:00 09/05/24 09:12 Zinc Gluconate 50 Mg Tablet PO 08/26/25 08:59 50 mg DAILY LLOYD Administration Assessment/Plan Assessment/Plan (1) Parkinsons disease: Qualifiers: Dyskinesia presence: without dyskinesia Fluctuating manifestations: without fluctuating manifestations Qualified Code(s): G20.A1 - Parkinson's disease without dyskinesia, without mention of fluctuations (2) Metabolic encephalopathy: (3) Acute UTI: (4) HTN (hypertension): (5) Anxiety: (6) Impaired mobility and activities of daily living: Plan This is a 79-year-old female who presents to [facility] due to multifactorial functional decline in the setting of acute UTI with metabolic encephalopathy in the setting of Parkinsons Disease. She has continued impaired mobility and impaired independence with ADLs and IADLs requiring PT/OT/DRY JANITOR 5-7 days/week 3 hours/day to maximize safety and independence with functional ability and self-care. -PT to improve patient's strength, endurance, bed mobility, transfers (sit- stand), standing balance, gait quality on level surfaces and stairs, coordination and functional ADL skills. We will also work to improve patient's safety awareness during transfers and ambulation. -OT for basic ADL retraining (bathing, dressing, toileting, continence, grooming, feeding, transferring), to increase activity tolerance and functional mobility to evaluate for adaptive assistive device. We will work to improve patient's endurance and educate patient on fall prevention and energy conservation techniques-pacing strategies and proper breathing techniques duringfunctional tasks. -Patient education -Pressure ulcer prophylaxis; encourage mobilization, frequent postural changes, pressure-relief techniques -DVT prophylaxis -Encourage deep breathing exercise incentive spirometry. -Monitor bladder. Toileting schedule. Continue current bladder management, with scans as needed and CIC if needed. Start bowel care program every day to obtain continence, prevent ileus. -Maintain fall precautions -Gait and balance retraining -Provision of the necessary gait aids and functional adaptive equipment to enhance the patient's a functional taoism -Encourage deep breathing exercises and incentive spirometry -RD evaluation -Ensure adequate nutrition and hydration -Discharge planning. #. UPDATES -Overall improving. -Conservative treatment for pubic ramus fracture with continued range of motion and weightbearing as tolerated. Follow-up in outpatient settings in about 4 weeks. -NWMitch RUE per patients orthopedic surgeon -Completed meropenem. -Continue home medications for chronic medical conditions -PD: Sinemet 10-100 TID, Azilect daily, Requip 0.25 mg qhs, Amantadine 100 mgTID -HTN: Norvasc 5 mg daily, Hydralazine 25 mg BID -Anxiety: Xanax 1 mg qhs PRN -Continue PT/OT/St -Hospitalist to assist with management of comorbid medical conditions #. Pain control: Tylenol PRN, #. Bowel and bladder: Continent of Bowel/bladder #. Skin: (pressure ulcer/surgical site) Pressure ulcer prophylaxis; encourage mobilization, frequent postural changes, pressure-relief techniques #. Sleep: Optimize sleep/wake cycle DVT prophylaxis: Heparin 5000 units q12hr Functional status: Impaired. Limited by pain, weakness Discharge planning: ELOS 1-2 weeks I spent 27 minutes for services, including aqsq-tl-[id number] encounter with the patient, discussion of the case, plan of care, and exam; and ckernok-jv-qorl activities, such as reviewing pertinent integrity consultant documentation, recent therapynotes, laboratory and radiology studies, and discussion of case with care team including physician, nursing, caser, and therapists. More than 50 % of time was spent on patient/family counseling or coordination ofcare. Documented By: Pa Neil MD [id number] Signed By: <Electronically signed by Pa Neil MD> 09/05/24 1011 [facility] Work Phone: [phone] Progress note Author Didi Navarro [facility] Note Date/Time September 05, 2024 10: 09am [facility] [address] [place] [address] Physiatry(Rehab) Progress Note Signed Patient: Judith Land MR#: [id number] : 1945 Acct:[id number] Age/Sex: 79 / F Adm Date: 5 Loc: Room: 4L0517-5 Type: ADM IN Attending Dr: Pa Neil MD Copies to: ~ <Didi Navarro APRN - Last Filed: 09/03/24 12:38> Date of Service: 09/03/2024 Subjective <Didi Navarro APRN - Last Filed: 09/03/24 12:38> Subjective Narrative: Ms. Land is a 79 year old female with a PMH of Parkinson disease, HTN, HLD, CAD, anxiety, RLS, chronic pain who presents to the rehab unit due to multifactorial functional decline in the setting of an acute UA with hospital course complicated by metabolic encephalopathy. She initially presented to the hospital due confusion for several days. She had been treated outpatient for about a month for a UTI without resolution of her infection. While hospitalized,she became acutely agitated requiring sedatives and 1:1. Gradually improved. Urine culture grew Pseudomonas for which she was started on Meropenem. OF note, the patient had a recent fall with fracture of the right arm and is in a splint. The patient lives with her daughter in a condo with 1 step to enter. Does not use an assistive device. This patient was seen and evaluated today. Family at bedside. She appears in no distress. Family had some questions today regarding patients recurrent UTIs. Gave advice including hydration, emptying bladder completely, proper hygiene. The patient is otherwise doing well. She does have a fracture of the radius and ulna on the right and family tells me that this was just recently repaired on August 12. They note that she was NWB post op but have not had follow up yet with Dr. Lyn. Interval history: Patient was seen and evaluated in her room while up in the chair eating breakfast with supervision. She is alert and confused. Voices no complaints atthis time time although per report admits to groin pain with ambulation. I did review imaging findings from yesterday. It appears that the patient had sustained left superior and inferior pubic ramus fractures. I did discuss the findings with the patient's daughter. We did also consult orthopedic surgery Dr. Jon who recommends progressive weightbearing as tolerated and continued range of motion. She is to follow-up in outpatient clinic in 4 weeks. <Pa Neil MD - Last Filed: 09/05/24 10:09> Subjective Narrative: Ms. Land is a 79 year old female with a PMH of Parkinson disease, HTN, HLD, CAD, anxiety, RLS, chronic pain who presents to the rehab unit due to multifactorial functional decline in the setting of an acute UA with hospital course complicated by metabolic encephalopathy. She initially presented to the hospital due confusion for several days. She had been treated outpatient for about a month for a UTI without resolution of her infection. While hospitalized,she became acutely agitated requiring sedatives and 1:1. Gradually improved. Urine culture grew Pseudomonas for which she was started on Meropenem. OF note, the patient had a recent fall with fracture of the right arm and is in a splint. The patient lives with her daughter in a condo with 1 step to enter. Does not use an assistive device. This patient was seen and evaluated today. Family at bedside. She appears in no distress. Family had some questions today regarding patients recurrent UTIs. Gave advice including hydration, emptying bladder completely, proper hygiene. The patient is otherwise doing well. She does have a fracture of the radius and ulna on the right and family tells me that this was just recently repaired on August 12. They note that she was NWB post op but have not had follow up yet with Dr. Lyn. Interval history: Patient was seen and evaluated in her room while up in the chair eating breakfast with supervision. She is alert and confused. Voices no complaints atthis time time although per report admits to groin pain with ambulation. I did review imaging findings from yesterday. It appears that the patient had sustained left superior and inferior pubic ramus fractures. I did discuss the findings with the patient's daughter. We did also consult orthopedic surgery Dr. Jon who recommends progressive weightbearing as tolerated and continued range of motion. She is to follow-up in outpatient clinic in 4 weeks. Review of Systems <Didi Navarro APRN - Last Filed: 09/03/24 12:38> Review of Systems All other systems reviewed & are negative unless noted below or in HPI <Pa Neil MD - Last Filed: 09/05/24 10:09> Review of Systems All other systems reviewed & are negative unless noted below or in HPI Exam <Didi Navarro APRN - Last Filed: 09/03/24 12:38> Physical Exam Vital Signs: Temp Pulse Resp BP Pulse Ox O2 Del Method 97.9 F 84 16 108/62 95 Room Air 09/03/24 07:34 09/03/24 11:17 09/03/24 11:17 09/03/24 11:17 09/03/24 11:17 09/03/24 11:34 Narrative: General: Awake, alert, oriented x3 HENT: Normal to inspection, normocephalic, atraumatic Eyes: PERRL, normal conjunctiva and sclera Neck: Normal ROM, normal visual inspection. Trachea midline. Cardio: Regular, tachycardic Respiratory: Clear to auscultation bilaterally. Normal respiratory effort. No respiratory distress. GI: Abdomen soft, nontender, nondistended, active bowel sounds x4 quadrants Neuro: CN II-XII intact. Strength 5/5, equal bilaterally Extremities: Upper extremity tremors. Right upper extremity cast intact. Normal perfusion to the fingertips. No complaints of numbness or tingling. No edema, erythema, cyanosis in upper or lower extremities Psych: Mood and affect appropriate. Normal speech. Objective <Didi Navarro APRN - Last Filed: 09/03/24 12:38> Labs 09/02/24 05:23 09/03/24 05:31 Labs: Laboratory Results - last 24 hr 09/03/24 05:31 PHA Creatinine Clear 28.68 Sodium 140 Potassium 4.8 Chloride 108 H Carbon Dioxide 24.7 Anion Gap 12.1 BUN 34 H Creatinine 1.22 H Est GFR (CKD-EPI) 45.423 Glucose 80 Calcium 10.9 H Medications and Allergies Allergies and Active Meds: Allergies Sulfa (Sulfonamide Antibiotics) Allergy (Verified 08/20/24 19:40) Difficulty Breathing sulfamethoxazole (From Bactrim) Allergy (Verified 08/20/24 19:40) Difficulty Breathing trimethoprim (From Bactrim) Allergy (Verified 08/20/24 19:40) Difficulty Breathing Active Medications Generic Name Dose Route Start Last Admin Trade Name Freq PRN Reason Stop Dose Admin Acetaminophen 500 mg 08/25/24 15:48 09/03/24 09:59 Acetaminophen 500 Mg Tablet PO 08/25/25 15:47 500 mg Q4H PRN Administration Pain Al Hydrox/Mg Hydrox/Simethicone 30 ml 08/25/24 15:48 Mag Hydrox/Al Hydrox/Simeth 30 Ml Udc PO 08/25/25 15:47 Q4H PRN Indigestion Alprazolam 1 mg 08/25/24 15:53 09/02/24 22:02 Alprazolam 0.5 Mg Tablet PO 1 mg QHS PRN Administration sleep Amantadine HCl 100 mg 08/25/24 22:00 09/03/24 09:57 Amantadine 100 Mg Capsule PO 08/25/25 21:59 100 mg TID LLOYD Administration Amlodipine Besylate 10 mg 08/27/24 09:00 09/03/24 09:58 Amlodipine 10 Mg Tablet PO 08/27/25 08:59 10 mg DAILY LLOYD Administration Ascorbic Acid 1,000 mg 08/26/24 09:00 09/03/24 09:58 Ascorbic Acid 500 Mg Tablet PO 08/26/25 08:59 1,000 mg DAILY LLOYD Administration Aspirin 81 mg 08/26/24 09:00 09/03/24 09:58 Aspirin 81 Mg Tab.Chew PO 08/26/25 08:59 81 mg DAILY LLOYD Administration Bisacodyl 10 mg 08/25/24 15:48 Bisacodyl 10 Mg Supp.Rect WI 08/25/25 15:47 DAILY PRN Constipation Carbidopa/Levodopa 1 tab 09/01/24 12:00 09/03/24 06:22 Carbidopa/Levodopa 10-100 Mg 1 Tab Tablet PO 09/01/25 11:59 1 tab TID@0700,1200,1700 LLOYD Administration Docusate Sodium 100 mg 08/25/24 15:48 09/03/24 06:22 Docusate 100 Mg Capsule PO 08/25/25 15:47 100 mg BID PRN Administration Constipation Docusate Sodium 283 mg 08/25/24 15:48 Docusate Enema 283 Mg/5 Ml Enema WI 08/25/25 15:47 DAILY PRN Constipation Heparin Sodium (Porcine) 5,000 unit 08/25/24 21:00 09/03/24 09:59 Heparin 5,000 Unit/Ml Vial SUBCUT 08/25/25 20:59 5,000 unit Q12HR LLOYD Administration Hydralazine HCl 25 mg 08/25/24 21:00 09/03/24 09:58 Hydralazine 25 Mg Tablet PO 08/25/25 20:59 25 mg BID LLOYD Administration Lactulose 30 gm 08/25/24 15:48 Lactulose 20 Gm/30 Ml Udc PO 08/25/25 15:47 DAILY PRN Constipation Megestrol Acetate 400 mg 09/03/24 09:00 09/03/24 09:58 Megestrol Susp 400 Mg/10 Ml Udc PO 09/02/25 08:59 400 mg QAM LLOYD Administration Multivitamins 1 tab 08/26/24 09:00 09/03/24 09:58 Multivitamin 1 Tab Tablet PO 08/26/25 08:59 1 tab DAILY LLOYD Administration Ondansetron HCl 4 mg 09/01/24 14:16 09/01/24 14:21 Ondansetron Odt 4 Mg Tab.Rapdis PO 09/01/25 14:15 4 mg Q6HR PRN Administration Nausea And Vomiting Pantoprazole Sodium 40 mg 08/26/24 09:00 09/03/24 09:58 Pantoprazole 40 Mg Tablet.Dr PO 08/26/25 08:59 40 mg QAM LLOYD Administration Potassium Chloride 20 meq 08/25/24 21:00 09/03/24 09:58 Potassium Chloride Er 20 Meq Tab.Er.Prt PO 08/25/25 20:59 20 meq BID LLOYD Administration Rasagiline 1 mg 08/26/24 09:00 09/03/24 09:57 Rasagiline 1 Mg Tablet PO 08/26/25 08:59 1 mg DAILY LLOYD Administration Ropinirole HCl 0.25 mg 08/25/24 22:00 09/02/24 22:03 Ropinirole 0.25 Mg Tablet PO 08/25/25 21:59 0.25 mg QHS LLOYD Administration Sennosides 17.2 mg 08/26/24 12:00 08/31/24 08:42 Sennosides 8.6 Mg Tablet PO 08/26/25 11:59 17.2 mg DAILY@12 PRN Administration If no BM in 2 days Sodium Chloride 0 ml 08/25/24 15:48 08/27/24 05:40 Sodium Chloride 0.9 % 10 Ml Syringe IV-PUSH 08/25/25 15:47 10 ml PRN PRN Administration Flush Vitamin D 125 mcg 08/26/24 09:00 09/03/24 09:58 Cholecalciferol 125 Mcg (5,000 Units) Capsule PO 08/26/25 08:59 125 mcg DAILY LLOYD Administration Zinc Gluconate 50 mg 08/26/24 09:00 09/03/24 09:57 Zinc Gluconate 50 Mg Tablet PO 08/26/25 08:59 50 mg DAILY LLOYD Administration Assessment/Plan <Didi Navarro, [employer]IAN - Last Filed: 09/03/24 12:38> Assessment/Plan (1) Parkinsons disease: Qualifiers: Dyskinesia presence: without dyskinesia Fluctuating manifestations: without fluctuating manifestations Qualified Code(s): G20.A1 - Parkinson's disease without dyskinesia, without mention of fluctuations (2) Metabolic encephalopathy: (3) Acute UTI: (4) HTN (hypertension): (5) Anxiety: (6) Impaired mobility and activities of daily living: Plan This is a 79-year-old female who presents to [facility] due to multifactorial functional decline in the setting of acute UTI with metabolic encephalopathy in the setting of Parkinsons Disease. She has continued impaired mobility and impaired independence with ADLs and IADLs requiring PT/OT/DRY JANITOR 5-7 days/week 3 hours/day to maximize safety and independence with functional ability and self-care. -PT to improve patient's strength, endurance, bed mobility, transfers (sit- stand), standing balance, gait quality on level surfaces and stairs, coordination and functional ADL skills. We will also work to improve patient's safety awareness during transfers and ambulation. -OT for basic ADL retraining (bathing, dressing, toileting, continence, grooming, feeding, transferring), to increase activity tolerance and functional mobility to evaluate for adaptive assistive device. We will work to improve patient's endurance and educate patient on fall prevention and energy conservation techniques-pacing strategies and proper breathing techniques duringfunctional tasks. -Patient education -Pressure ulcer prophylaxis; encourage mobilization, frequent postural changes, pressure-relief techniques -DVT prophylaxis -Encourage deep breathing exercise incentive spirometry. -Monitor bladder. Toileting schedule. Continue current bladder management, with scans as needed and CIC if needed. Start bowel care program every day to obtain continence, prevent ileus. -Maintain fall precautions -Gait and balance retraining -Provision of the necessary gait aids and functional adaptive equipment to enhance the patient's a functional taoism -Encourage deep breathing exercises and incentive spirometry -RD evaluation -Ensure adequate nutrition and hydration -Discharge planning. #. UPDATES -Hip x-ray notable for fractures involving the left superior and inferior pubic ramus. Orthopedic surgery was consulted, conservative treatment with continued range of motion and weightbearing as tolerated. Follow-up in outpatient settings in about 4 weeks. -FI with daughter today, hopefully DC home -NWB RUE per patients orthopedic surgeon -Completed meropenem. -Continue home medications for chronic medical conditions -PD: Sinemet 10-100 TID, Azilect daily, Requip 0.25 mg qhs, Amantadine 100 mgTID -HTN: Norvasc 5 mg daily, Hydralazine 25 mg BID -Anxiety: Xanax 1 mg qhs PRN -Continue PT/OT/St -Hospitalist to assist with management of comorbid medical conditions #. Pain control: Tylenol PRN, #. Bowel and bladder: Continent of Bowel/bladder #. Skin: (pressure ulcer/surgical site) Pressure ulcer prophylaxis; encourage mobilization, frequent postural changes, pressure-relief techniques #. Sleep: Optimize sleep/wake cycle DVT prophylaxis: Heparin 5000 units q12hr Functional status: Impaired. Limited by pain, weakness Discharge planning: ELOS 1-2 weeks I spent 17 minutes for services, including gqrr-ri-[id number] encounter with the patient, discussion of the case, plan of care, and exam; and imidllb-ge-akfz activities, such as reviewing pertinent integrity consultant documentation, recent therapynotes, laboratory and radiology studies, and discussion of case with care team including physician, nursing, caser, and therapists. More than 50 % of time was spent on patient/family counseling or coordination ofcare. <Pa Neil MD - Last Filed: 09/05/24 10:09> Assessment/Plan (1) Parkinsons disease: (2) Metabolic encephalopathy: (3) Acute UTI: (4) HTN (hypertension): (5) Anxiety: (6) Impaired mobility and activities of daily living: Plan This is a 79-year-old female who presents to [facility] due to multifactorial functional decline in the setting of acute UTI with metabolic encephalopathy in the setting of Parkinsons Disease. She has continued impaired mobility and impaired independence with ADLs and IADLs requiring PT/OT/DRY JANITOR 5-7 days/week 3 hours/day to maximize safety and independence with functional ability and self-care. -PT to improve patient's strength, endurance, bed mobility, transfers (sit- stand), standing balance, gait quality on level surfaces and stairs, coordination and functional ADL skills. We will also work to improve patient's safety awareness during transfers and ambulation. -OT for basic ADL retraining (bathing, dressing, toileting, continence, grooming, feeding, transferring), to increase activity tolerance and functional mobility to evaluate for adaptive assistive device. We will work to improve patient's endurance and educate patient on fall prevention and energy conservation techniques-pacing strategies and proper breathing techniques duringfunctional tasks. -Patient education -Pressure ulcer prophylaxis; encourage mobilization, frequent postural changes, pressure-relief techniques -DVT prophylaxis -Encourage deep breathing exercise incentive spirometry. -Monitor bladder. Toileting schedule. Continue current bladder management, with scans as needed and CIC if needed. Start bowel care program every day to obtain continence, prevent ileus. -Maintain fall precautions -Gait and balance retraining -Provision of the necessary gait aids and functional adaptive equipment to enhance the patient's a functional taoism -Encourage deep breathing exercises and incentive spirometry -RD evaluation -Ensure adequate nutrition and hydration -Discharge planning. #. UPDATES -Hip x-ray notable for fractures involving the left superior and inferior pubic ramus. Orthopedic surgery was consulted, conservative treatment with continued range of motion and weightbearing as tolerated. Follow-up in outpatient settings in about 4 weeks. -FI with daughter today, hopefully DC home -VINNY SALMERON per patients orthopedic surgeon -Completed meropenem. -Continue home medications for chronic medical conditions -PD: Sinemet 10-100 TID, Azilect daily, Requip 0.25 mg qhs, Amantadine 100 mgTID -HTN: Norvasc 5 mg daily, Hydralazine 25 mg BID -Anxiety: Xanax 1 mg qhs PRN -Continue PT/OT/St -Hospitalist to assist with management of comorbid medical conditions #. Pain control: Tylenol PRN, #. Bowel and bladder: Continent of Bowel/bladder #. Skin: (pressure ulcer/surgical site) Pressure ulcer prophylaxis; encourage mobilization, frequent postural changes, pressure-relief techniques #. Sleep: Optimize sleep/wake cycle DVT prophylaxis: Heparin 5000 units q12hr Functional status: Impaired. Limited by pain, weakness Discharge planning: JOSE LUIS 1-2 weeks I spent 17 minutes for services, including iqjc-sa-[id number] encounter with the patient, discussion of the case, plan of care, and exam; and qzjtsnv-fm-kxij activities, such as reviewing pertinent integrity consultant documentation, recent therapynotes, laboratory and radiology studies, and discussion of case with care team including physician, nursing, caser, and therapists. More than 50 % of time was spent on patient/family counseling or coordination ofcare. I agree with above. I, Dr. Neil, did see the patient on the day of evaluation. She was found to have a left superior and inferior puibic ramus fx. Can be treated non operatively. She is doing well. I will schedule Tylenol 1000 mg TID for pain relief. Documented By: Didi Navarro APRN 09/03/24 1 206 Signed By: <Electronically signed by MIGUEL Navarro> 09/03/24 1238 <Electronically signed by Pa Neil MD> 09/05/24 1007 [facility] Work Phone: [phone]) [phone] [place] [address] Physiatry(Rehab) Progress Note Signed Patient: Judith Land MR#: [id number] : 1945 Acct:[id number] Age/Sex: 79 / F Adm Date: 5 Loc: Room: 0T8942-1 Type: ADM IN Attending Dr: Pa Neil MD Copies to: ~ Date of Service: 09/04/2024 Subjective Subjective Narrative: Ms. Land is a 79 year old female with a PMH of Parkinson disease, HTN, HLD, CAD, anxiety, RLS, chronic pain who presents to the rehab unit due to multifactorial functional decline in the setting of an acute UA with hospital course complicated by metabolic encephalopathy. She initially presented to the hospital due confusion for several days. She had been treated outpatient for about a month for a UTI without resolution of her infection. While hospitalized,she became acutely agitated requiring sedatives and 1:1. Gradually improved. Urine culture grew Pseudomonas for which she was started onMeropenem. OF note, the patient had a recent fall with fracture of the right arm and is in a splint. The patient lives with her daughter in a condo with 1 step to enter. Does not use an assistive device. This patient was seen and evaluated today. Family at bedside. She appears in no distress. Family had some questions today regarding patients recurrent UTIs. Gave advice including hydration, emptying bladder completely, proper hygiene. The patient is otherwise doing well. She does have a fracture ofthe radius and ulna on the right and family tells me that this was just recently repaired on August 12. They note that she was NWB post op but have not had follow up yet with Dr. Lyn. Interval history: Patient was seen and evaluated today. Sitting up in bed. She appears in no distress. Improving. Family at bedside. FI yesterday went well. Plan is for DC home tomorrow with family. Review of Systems Review of Systems All other systems reviewed & are negative unless noted below or in HPI Exam Physical Exam Vital Signs: Temp Pulse Resp BP Pulse Ox O2 Del Method 98.4 F 104 H 16 116/66 95 Room Air 09/05/24 06:55 09/05/24 06:55 09/05/24 06:55 09/04/24 14:58 09/05/24 06:55 09/05/24 06:55 Narrative: NAD. Sitting up in chair. Appears less confused today. answers questions appropriately Extremities well perfused No respiratory distress RRR Abdomen soft, non distended DELMER. Tremor appreciated in all 4 extremities Speech is normal, fluent Objective Labs 09/02/24 05:23 09/03/24 05:31 Medications and Allergies Allergies and Active Meds: Allergies Sulfa (Sulfonamide Antibiotics) Allergy (Verified 08/20/24 19:40) Difficulty Breathing sulfamethoxazole (From Bactrim) Allergy (Verified 08/20/24 19:40) Difficulty Breathing trimethoprim (From Bactrim) Allergy (Verified 08/20/24 19:40) Difficulty Breathing Active Medications Generic Name Dose Route Start Last Admin Trade Name Freq PRN Reason Stop Dose Admin Acetaminophen 1,000 mg 09/03/24 13:00 09/05/24 06:44 Acetaminophen 500 Mg Tablet PO 09/03/25 12:59 1,000 mg Q8H LLOYD Administration Al Hydrox/Mg Hydrox/Simethicone 30 ml 08/25/24 15:48 Mag Hydrox/Al Hydrox/Simeth 30 Ml Udc PO 08/25/25 15:47 Q4H PRN Indigestion Alprazolam 1 mg 08/25/24 15:53 09/04/24 20:29 Alprazolam 0.5 Mg Tablet PO 1 mg QHS PRN Administration sleep Amantadine HCl 100 mg 08/25/24 22:00 09/05/24 09:12 Amantadine 100 Mg Capsule PO 08/25/25 21:59 100 mg TID LLOYD Administration Amlodipine Besylate 10 mg 08/27/24 09:00 09/05/24 09:12 Amlodipine 10 Mg Tablet PO 08/27/25 08:59 10 mg DAILY LLOYD Administration Ascorbic Acid 1,000 mg 08/26/24 09:00 09/05/24 09:12 Ascorbic Acid 500 Mg Tablet PO 08/26/25 08:59 1,000 mg DAILY LLOYD Administration Aspirin 81 mg 08/26/24 09:00 09/05/24 09:11 Aspirin 81 Mg Tab.Chew PO 08/26/25 08:59 81 mg DAILY LLOYD Administration Bisacodyl 10 mg 08/25/24 15:48 Bisacodyl 10 Mg Supp.Rect WI 08/25/25 15:47 DAILY PRN Constipation Carbidopa/Levodopa 1 tab 09/01/24 12:00 09/05/24 06:44 Carbidopa/Levodopa 10-100 Mg 1 Tab Tablet PO 09/01/25 11:59 1 tab TID@0700,1200,1700 LLOYD Administration Docusate Sodium 100 mg 08/25/24 15:48 09/03/24 21:30 Docusate 100 Mg Capsule PO 08/25/25 15:47 100 mg BID PRN Administration Constipation Docusate Sodium 283 mg 08/25/24 15:48 Docusate Enema 283 Mg/5 Ml Enema [place] 08/25/25 15:47 DAILY PRN Constipation Heparin Sodium (Porcine) 5,000 unit 08/25/24 21:00 09/05/24 09:12 Heparin 5,000 Unit/Ml Vial SUBCUT 08/25/25 20:59 5,000 unit Q12HR LLOYD Administration Hydralazine HCl 25 mg 08/25/24 21:00 09/05/24 09:12 Hydralazine 25 Mg Tablet PO 08/25/25 20:59 25 mg BID LLOYD Administration Lactulose 30 gm 08/25/24 15:48 Lactulose 20 Gm/30 Ml Udc PO 08/25/25 15:47 DAILY PRN Constipation Megestrol Acetate 400 mg 09/03/24 09:00 09/05/24 09:11 Megestrol Susp 400 Mg/10 Ml Udc PO 09/02/25 08:59 400 mg QAM LLOYD Administration Multivitamins 1 tab 08/26/24 09:00 09/05/24 09:12 Multivitamin 1 Tab Tablet PO 08/26/25 08:59 1 tab DAILY LLOYD Administration Ondansetron HCl 4 mg 09/01/24 14:16 09/01/24 14:21 Ondansetron Odt 4 Mg Tab.Rapdis PO 09/01/25 14:15 4 mg Q6HR PRN Administration Nausea And Vomiting Pantoprazole Sodium 40 mg 08/26/24 09:00 09/05/24 09:12 Pantoprazole 40 Mg Tablet.Dr PO 08/26/25 08:59 40 mg QAM LLOYD Administration Potassium Chloride 20 meq 08/25/24 21:00 09/05/24 09:33 Potassium Chloride Er 20 Meq Tab.Er.Prt PO 08/25/25 20:59 20 meq BID LLOYD Administration Rasagiline 1 mg 08/26/24 09:00 09/05/24 09:12 Rasagiline 1 Mg Tablet PO 08/26/25 08:59 1 mg DAILY LLOYD Administration Ropinirole HCl 0.25 mg 08/25/24 22:00 09/04/24 20:30 Ropinirole 0.25 Mg Tablet PO 08/25/25 21:59 0.25 mg QHS LLOYD Administration Sennosides 17.2 mg 08/26/24 12:00 09/03/24 21:30 Sennosides 8.6 Mg Tablet PO 08/26/25 11:59 17.2 mg DAILY@12 PRN Administration If no BM in 2 days Sodium Chloride 0 ml 08/25/24 15:48 08/27/24 05:40 Sodium Chloride 0.9 % 10 Ml Syringe IV-PUSH 08/25/25 15:47 10 ml PRN PRN Administration Flush Vitamin D 125 mcg 08/26/24 09:00 09/05/24 09:12 Cholecalciferol 125 Mcg (5,000 Units) Capsule PO 08/26/25 08:59 125 mcg DAILY LLOYD Administration Zinc Gluconate 50 mg 08/26/24 09:00 09/05/24 09:12 Zinc Gluconate 50 Mg Tablet PO 08/26/25 08:59 50 mg DAILY LLOYD Administration Assessment/Plan Assessment/Plan (1) Parkinsons disease: Qualifiers: Dyskinesia presence: without dyskinesia Fluctuating manifestations: without fluctuating manifestations Qualified Code(s): G20.A1 - Parkinson's disease without dyskinesia, without mention of fluctuations (2) Metabolic encephalopathy: (3) Acute UTI: (4) HTN (hypertension): (5) Anxiety: (6) Impaired mobility and activities of daily living: Plan This is a 79-year-old female who presents to [facility] due to multifactorial functional decline in the setting of acute UTI with metabolic encephalopathy in the setting ofParkinsons Disease. She has continued impaired mobility and impaired independence with ADLs and IADLs requiring PT/OT/DRY JANITOR 5-7 days/week 3 hours/day to maximize safety and independence with functionalability and self-care. -PT to improve patient's strength, endurance, bed mobility, transfers (sit- stand), standing balance, gait quality on level surfaces and stairs, coordination and functional ADL skills. We will also work to improve patient's safety awareness during transfers and ambulation. -OT for basic ADL retraining (bathing, dressing, toileting, continence, grooming, feeding, transferring), to increase activity tolerance and functional mobility to evaluate for adaptive assistive device. We will work to improve patient's endurance and educate patient on fall prevention and energy co nservation techniques-pacing strategies and proper breathing techniques duringfunctional tasks. -Patient education -Pressure ulcer prophylaxis; encourage mobilization, frequent postural changes, pressure-relief techniques -DVT prophylaxis -Encourage deep breathing exercise incentive spirometry. -Monitor bladder. Toileting schedule. Continue current bladder management, with scans as needed andCIC if needed. Start bowel care program every day to obtain continence, prevent ileus. -Maintain fall precautions -Gait and balance retraining -Provision of the necessary gait aids and functional adaptive equipment to enhance the patient's a functional taoism -Encourage deep breathing exercises and incentive spirometry -RD evaluation -Ensure adequate nutrition and hydration -Discharge planning. #. UPDATES -Overall improving. -Conservative treatment for pubic ramus fracture with continued range of motion and weightbearing as tolerated. Follow-up in outpatient settings in about 4 weeks. -VINNY SALMERON per patients orthopedic surgeon -Completed meropenem. -Continue home medications for chronic medical conditions -PD: Sinemet 10-100 TID, Azilect daily, Requip 0.25 mg qhs, Amantadine 100 mgTID -HTN: Norvasc 5 mg daily, Hydralazine 25 mg BID -Anxiety: Xanax 1 mg qhs PRN -Continue PT/OT/St -Hospitalist to assist with management of comorbid medical conditions #. Pain control: Tylenol PRN, #. Bowel and bladder: Continent of Bowel/bladder #. Skin: (pressure ulcer/surgical site) Pressure ulcer prophylaxis; encourage mobilization, frequent postural changes, pressure-relief techniques #. Sleep: Optimize sleep/wake cycle DVT prophylaxis: Heparin 5000 units q12hr Functional status: Impaired. Limited by pain, weakness Discharge planning: ELOS 1-2 weeks I spent 27 minutes for services, including [id number] encounter with the patient, discussion of the case, plan of care, and exam; and [id number] activities, such as reviewing pertinent integrity consultant documentation, recent therapynotes, laboratory and radiology studies, and discussion of case with care team including physician, nursing, caser, and therapists. More than 50 % of time was spent on patient/family counseling or coordination ofcare. Documented By: Pa Neil MD [id number] Signed By: 09/05/24 1011 [facility]03-28-2025 [place] [address] Physiatry(Rehab) Progress Note Signed Patient: Judith Land MR#: [id number] : 1945 Acct:[id number] Age/Sex: 79 / F Adm Date: 5 Loc: Room: [address] [place] [address] Type: ADM IN Attending Dr: Pa Neil MD Copies to: ~ Date of Service: 09/03/2024 Subjective Subjective Narrative: Ms. Land is a 79 year old female with a PMH of Parkinson disease, HTN, HLD, CAD, anxiety, RLS, chronic pain who presents to the rehab unit due to multifactorial functional decline in the setting of an acute UA with hospital course complicated by metabolic encephalopathy. She initially presented to the hospital due confusion for several days. She had been treated outpatient for about a month for a UTI without resolution of her infection. While hospitalized,she became acutely agitated requiring sedatives and 1:1. Gradually improved. Urine culture grew Pseudomonas for which she was started onMeropenem. OF note, the patient had a recent fall with fracture of the right arm and is in a splint. The patient lives with her daughter in a condo with 1 step to enter. Does not use an assistive device. This patient was seen and evaluated today. Family at bedside. She appears in no distress. Family had some questions today regarding patients recurrent UTIs. Gave advice including hydration, emptying bladder completely, proper hygiene. The patient is otherwise doing well. She does have a fracture ofthe radius and ulna on the right and family tells me that this was just recently repaired on August 12. They note that she was NWB post op but have not had follow up yet with Dr. Lyn. Interval history: Patient was seen and evaluated in her room while up in the chair eating breakfast with supervision.She is alert and confused. Voices no complaints atthis time time although per report admits to groin pain with ambulation. I did review imaging findings from yesterday. It appears that the patient had sustained left superior and inferior pubic ramus fractures. I did discuss the findings with the patient's daughter. We did also consult orthopedic surgery Dr. Jon who recommends progressive weightbearing as tolerated and continued range of motion. She is to follow-up in outpatient clinic in 4 weeks. Subjective Narrative: Ms. Land is a 79 year old female with a PMH of Parkinson disease, HTN, HLD, CAD, anxiety, RLS, chronic pain who presents to the rehab unit due to multifactorial functional decline in the setting of an acute UA with hospital course complicated by metabolic encephalopathy. She initially presented to the hospital due confusion for several days. She had been treated outpatient for about a month for a UTI without resolution of her infection. While hospitalized,she became acutely agitated requiring sedatives and 1:1. Gradually improved. Urine culture grew Pseudomonas for which she was started onMeropenem. OF note, the patient had a recent fall with fracture of the right arm and is in a splint. The patient lives with her daughter in a condo with 1 step to enter. Does not use an assistive device. This patient was seen and evaluated today. Family at bedside. She appears in no distress. Family had some questions today regarding patients recurrent UTIs. Gave advice including hydration, emptying bladder completely, proper hygiene. The patient is otherwise doing well. She does have a fracture ofthe radius and ulna on the right and family tells me that this was just recently repaired on August 12. They note that she was NWB post op but have not had follow up yet with Dr. Lyn. Interval history: Patient was seen and evaluated in her room while up in the chair eating breakfast with supervision.She is alert and confused. Voices no complaints atthis time time although per report admits to groin pain with ambulation. I did review imaging findings from yesterday. It appears that the patient had sustained left superior and inferior pubic ramus fractures. I did discuss the findings with the patient's daughter. We did also consult orthopedic surgery Dr. Jon who recommends progressive weightbearing as tolerated and continued range of motion. She is to follow-up in outpatient clinic in 4 weeks. Review of Systems Review of Systems All other systems reviewed & are negative unless noted below or in HPI Review of Systems All other systems reviewed & are negative unless noted below or in HPI Exam Physical Exam Vital Signs: Temp Pulse Resp BP Pulse Ox O2 Del Method 97.9 F 84 16 108/62 95 Room Air 09/03/24 07:34 09/03/24 11:17 09/03/24 11:17 09/03/24 11:17 09/03/24 11:17 09/03/24 11:34 Narrative: General: Awake, alert, oriented x3 HENT: Normal to inspection, normocephalic, atraumatic Eyes: PERRL, normal conjunctiva and sclera Neck: Normal ROM, normal visual inspection. Trachea midline. Cardio: Regular, tachycardic Respiratory: Clear to auscultation bilaterally. Normal respiratory effort. No respiratory distress. GI: Abdomen soft, nontender, nondistended, active bowel sounds x4 quadrants Neuro: CN II-XII intact. Strength 5/5, equal bilaterally Extremities: Upper extremity tremors. Right upper extremity cast intact. Normal perfusion to the fingertips. No complaints of numbness or tingling. No edema, erythema, cyanosis in upper or lower extremities Psych: Mood and affect appropriate. Normal speech. Objective Labs 09/02/24 05:23 09/03/24 05:31 Labs: Laboratory Results - last 24 hr 09/03/24 05:31 PHA Creatinine Clear 28.68 Sodium 140 Potassium 4.8 Chloride 108 H Carbon Dioxide 24.7 Anion Gap 12.1 BUN 34 H Creatinine 1.22 H Est GFR (CKD-EPI) 45.423 Glucose 80 Calcium 10.9 H Medications and Allergies Allergies and Active Meds: Allergies Sulfa (Sulfonamide Antibiotics) Allergy (Verified 08/20/24 19:40) Difficulty Breathing sulfamethoxazole (From Bactrim) Allergy (Verified 08/20/24 19:40) Difficulty Breathing trimethoprim (From Bactrim) Allergy (Verified 08/20/24 19:40) Difficulty Breathing Active Medications Generic Name Dose Route Start Last Admin Trade Name Freq PRN Reason Stop Dose Admin Acetaminophen 500 mg 08/25/24 15:48 09/03/24 09:59 Acetaminophen 500 Mg Tablet PO 08/25/25 15:47 500 mg Q4H PRN Administration Pain Al Hydrox/Mg Hydrox/Simethicone 30 ml 08/25/24 15:48 Mag Hydrox/Al Hydrox/Simeth 30 Ml Udc PO 08/25/25 15:47 Q4H PRN Indigestion Alprazolam 1 mg 08/25/24 15:53 09/02/24 22:02 Alprazolam 0.5 Mg Tablet PO 1 mg QHS PRN Administration sleep Amantadine HCl 100 mg 08/25/24 22:00 09/03/24 09:57 Amantadine 100 Mg Capsule PO 08/25/25 21:59 100 mg TID LLOYD Administration Amlodipine Besylate 10 mg 08/27/24 09:00 09/03/24 09:58 Amlodipine 10 Mg Tablet PO 08/27/25 08:59 10 mg DAILY LLOYD Administration Ascorbic Acid 1,000 mg 08/26/24 09:00 09/03/24 09:58 Ascorbic Acid 500 Mg Tablet PO 08/26/25 08:59 1,000 mg DAILY LLOYD Administration Aspirin 81 mg 08/26/24 09:00 09/03/24 09:58 Aspirin 81 Mg Tab.Chew PO 08/26/25 08:59 81 mg DAILY LLOYD Administration Bisacodyl 10 mg 08/25/24 15:48 Bisacodyl 10 Mg Supp.Rect WI 08/25/25 15:47 DAILY PRN Constipation Carbidopa/Levodopa 1 tab 09/01/24 12:00 09/03/24 06:22 Carbidopa/Levodopa 10-100 Mg 1 Tab Tablet PO 09/01/25 11:59 1 tab TID@0700,1200,1700 LLOYD Administration Docusate Sodium 100 mg 08/25/24 15:48 09/03/24 06:22 Docusate 100 Mg Capsule PO 08/25/25 15:47 100 mg BID PRN Administration Constipation Docusate Sodium 283 mg 08/25/24 15:48 Docusate Enema 283 Mg/5 Ml Enema WI 08/25/25 15:47 DAILY PRN Constipation Heparin Sodium (Porcine) 5,000 unit 08/25/24 21:00 09/03/24 09:59 Heparin 5,000 Unit/Ml Vial SUBCUT 08/25/25 20:59 5,000 unit Q12HR LLOYD Administration Hydralazine HCl 25 mg 08/25/24 21:00 09/03/24 09:58 Hydralazine 25 Mg Tablet PO 08/25/25 20:59 25 mg BID LLOYD Administration Lactulose 30 gm 08/25/24 15:48 Lactulose 20 Gm/30 Ml Udc PO 08/25/25 15:47 DAILY PRN Constipation Megestrol Acetate 400 mg 09/03/24 09:00 09/03/24 09:58 Megestrol Susp 400 Mg/10 Ml Udc PO 09/02/25 08:59 400 mg QAM LLOYD Administration Multivitamins 1 tab 08/26/24 09:00 09/03/24 09:58 Multivitamin 1 Tab Tablet PO 08/26/25 08:59 1 tab DAILY LLOYD Administration Ondansetron HCl 4 mg 09/01/24 14:16 09/01/24 14:21 Ondansetron Odt 4 Mg Tab.Rapdis PO 09/01/25 14:15 4 mg Q6HR PRN Administration Nausea And Vomiting Pantoprazole Sodium 40 mg 08/26/24 09:00 09/03/24 09:58 Pantoprazole 40 Mg Tablet.Dr PO 08/26/25 08:59 40 mg QAM LLOYD Administration Potassium Chloride 20 meq 08/25/24 21:00 09/03/24 09:58 Potassium Chloride Er 20 Meq Tab.Er.Prt PO 08/25/25 20:59 20 meq BID LLOYD Administration Rasagiline 1 mg 08/26/24 09:00 09/03/24 09:57 Rasagiline 1 Mg Tablet PO 08/26/25 08:59 1 mg DAILY LLOYD Administration Ropinirole HCl 0.25 mg 08/25/24 22:00 09/02/24 22:03 Ropinirole 0.25 Mg Tablet PO 08/25/25 21:59 0.25 mg QHS LLOYD Administration Sennosides 17.2 mg 08/26/24 12:00 08/31/24 08:42 Sennosides 8.6 Mg Tablet PO 08/26/25 11:59 17.2 mg DAILY@12 PRN Administration If no BM in 2 days Sodium Chloride 0 ml 08/25/24 15:48 08/27/24 05:40 Sodium Chloride 0.9 % 10 Ml Syringe IV-PUSH 08/25/25 15:47 10 ml PRN PRN Administration Flush Vitamin D 125 mcg 08/26/24 09:00 09/03/24 09:58 Cholecalciferol 125 Mcg (5,000 Units) Capsule PO 08/26/25 08:59 125 mcg DAILY LLOYD Administration Zinc Gluconate 50 mg 08/26/24 09:00 09/03/24 09:57 Zinc Gluconate 50 Mg Tablet PO 08/26/25 08:59 50 mg DAILY LLOYD Administration Assessment/Plan Assessment/Plan (1) Parkinsons disease: Qualifiers: Dyskinesia presence: without dyskinesia Fluctuating manifestations: without fluctuating manifestations Qualified Code(s): G20.A1 - Parkinson's disease without dyskinesia, without mention of fluctuations (2) Metabolic encephalopathy: (3) Acute UTI: (4) HTN (hypertension): (5) Anxiety: (6) Impaired mobility and activities of daily living: Plan This is a 79-year-old female who presents to [facility] due to multifactorial functional decline in the setting of acute UTI with metabolic encephalopathy in the setting ofParkinsons Disease. She has continued impaired mobility and impaired independence with ADLs and IADLs requiring PT/OT/DRY JANITOR 5-7 days/week 3 hours/day to maximize safety and independence with functionalability and self-care. -PT to improve patient's strength, endurance, bed mobility, transfers (sit- stand), standing balance, gait quality on level surfaces and stairs, coordination and functional ADL skills. We will also work to improve patient's safety awareness during transfers and ambulation. -OT for basic ADL retraining (bathing, dressing, toileting, continence, grooming, feeding, transferring), to increase activity tolerance and functional mobility to evaluate for adaptive assistive device. We will work to improve patient's endurance and educate patient on fall prevention and energy co nservation techniques-pacing strategies and proper breathing techniques duringfunctional tasks. -Patient education -Pressure ulcer prophylaxis; encourage mobilization, frequent postural changes, pressure-relief techniques -DVT prophylaxis -Encourage deep breathing exercise incentive spirometry. -Monitor bladder. Toileting schedule. Continue current bladder management, with scans as needed andCIC if needed. Start bowel care program every day to obtain continence, prevent ileus. -Maintain fall precautions -Gait and balance retraining -Provision of the necessary gait aids and functional adaptive equipment to enhance the patient's a functional taoism -Encourage deep breathing exercises and incentive spirometry -RD evaluation -Ensure adequate nutrition and hydration -Discharge planning. #. UPDATES -Hip x-ray notable for fractures involving the left superior and inferior pubic ramus. Orthopedic surgery was consulted, conservative treatment with continued range of motion and weightbearing as tolerated. Follow-up in outpatient settings in about 4 weeks. -FI with daughter today, hopefully DC home -NWMitch RUE per patients orthopedic surgeon -Completed meropenem. -Continue home medications for chronic medical conditions -PD: Sinemet 10-100 TID, Azilect daily, Requip 0.25 mg qhs, Amantadine 100 mgTID -HTN: Norvasc 5 mg daily, Hydralazine 25 mg BID -Anxiety: Xanax 1 mg qhs PRN -Continue PT/OT/St -Hospitalist to assist with management of comorbid medical conditions #. Pain control: Tylenol PRN, #. Bowel and bladder: Continent of Bowel/bladder #. Skin: (pressure ulcer/surgical site) Pressure ulcer prophylaxis; encourage mobilization, frequent postural changes, pressure-relief techniques #. Sleep: Optimize sleep/wake cycle DVT prophylaxis: Heparin 5000 units q12hr Functional status: Impaired. Limited by pain, weakness Discharge planning: ELOS 1-2 weeks I spent 17 minutes for services, including [id number] encounter with the patient, discussion of the case, plan of care, and exam; and [id number] activities, such as reviewing pertinent integrity consultant documentation, recent therapynotes, laboratory and radiology studies, and discussion of case with care team including physician, nursing, caser, and therapists. More than 50 % of time was spent on patient/family counseling or coordination ofcare. Assessment/Plan (1) Parkinsons disease: (2) Metabolic encephalopathy: (3) Acute UTI: (4) HTN (hypertension): (5) Anxiety: (6) Impaired mobility and activities of daily living: Plan This is a 79-year-old female who presents to [facility] due to multifactorial functional decline in the setting of acute UTI with metabolic encephalopathy in the setting ofParkinsons Disease. She has continued impaired mobility and impaired independence with ADLs and IADLs requiring PT/OT/DRY JANITOR 5-7 days/week 3 hours/day to maximize safety and independence with functionalability and self-care. -PT to improve patient's strength, endurance, bed mobility, transfers (sit- stand), standing balance, gait quality on level surfaces and stairs, coordination and functional ADL skills. We will also work to improve patient's safety awareness during transfers and ambulation. -OT for basic ADL retraining (bathing, dressing, toileting, continence, grooming, feeding, transferring), to increase activity tolerance and functional mobility to evaluate for adaptive assistive device. We will work to improve patient's endurance and educate patient on fall prevention and energy co nservation techniques-pacing strategies and proper breathing techniques duringfunctional tasks. -Patient education -Pressure ulcer prophylaxis; encourage mobilization, frequent postural changes, pressure-relief techniques -DVT prophylaxis -Encourage deep breathing exercise incentive spirometry. -Monitor bladder. Toileting schedule. Continue current bladder management, with scans as needed andCIC if needed. Start bowel care program every day to obtain continence, prevent ileus. -Maintain fall precautions -Gait and balance retraining -Provision of the necessary gait aids and functional adaptive equipment to enhance the patient's a functional taoism -Encourage deep breathing exercises and incentive spirometry -RD evaluation -Ensure adequate nutrition and hydration -Discharge planning. #. UPDATES -Hip x-ray notable for fractures involving the left superior and inferior pubic ramus. Orthopedic surgery was consulted, conservative treatment with continued range of motion and weightbearing as tolerated. Follow-up in outpatient settings in about 4 weeks. -FI with daughter today, hopefully DC home -NWB RUE per patients orthopedic surgeon -Completed meropenem. -Continue home medications for chronic medical conditions -PD: Sinemet 10-100 TID, Azilect daily, Requip 0.25 mg qhs, Amantadine 100 mgTID -HTN: Norvasc 5 mg daily, Hydralazine 25 mg BID -Anxiety: Xanax 1 mg qhs PRN -Continue PT/OT/St -Hospitalist to assist with management of comorbid medical conditions #. Pain control: Tylenol PRN, #. Bowel and bladder: Continent of Bowel/bladder #. Skin: (pressure ulcer/surgical site) Pressure ulcer prophylaxis; encourage mobilization, frequent postural changes, pressure-relief techniques #. Sleep: Optimize sleep/wake cycle DVT prophylaxis: Heparin 5000 units q12hr Functional status: Impaired. Limited by pain, weakness Discharge planning: ELOS 1-2 weeks I spent 17 minutes for services, including [id number] encounter with the patient, discussion of the case, plan of care, and exam; and [id number] activities, such as reviewing pertinent integrity consultant documentation, recent therapynotes, laboratory and radiology studies, and discussion of case with care team including physician, nursing, caser, and therapists. More than 50 % of time was spent on patient/family counseling or coordination ofcare. I agree with above. I, Dr. Neil, did see the patient on the day of evaluation. She was found to have a left superior and inferior puibic ramus fx. Can be treated non operatively. She is doing well. I will schedule Tylenol 1000 mg TID for pain relief. Documented By: Didi Navarro APRN 09/03/24 1 206 Signed By: 09/03/24 1238 09/05/24 1009 [facility]03-26-2025 Consult note Author Henrry Jon [facility] Note Date/Time September 03, 2024 11: 59am [facility] [address] [place] [address] Orthopedic Consult Note Signed Patient: Judith Land MR#: [id number] : 1945 Acct:[id number] Age/Sex: 79 / F Adm Date: 5 Loc: Room: 9H1683-4 Type: ADM IN Attending Dr: Pa Neil MD Copies to: MD Kavon Champion MD Thomas A Olexa, MD~ History of Present Illness HPI Consult date: 09/03/2024 Requesting provider: Pa Neil MD History of present illness: 71-year-old female currently in the rehab facility. She states that she fell onto her left side and has been having left hip pain. X-rays readings have demonstrated left superior inferior pubic ramus fracture. Orthopedics will be consulted for evaluation. She states that she did recently fall and sustained aright wrist fracture for which she underwent fixation in [place]. 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 Family History Mother Stroke Father Cancer Lung Son Cancer Lymphoma Social History Smoking Status: Former smoker Tobacco Type: cigarettes Substance Use Type: None Allergies & Medications Medications and Allergies Allergies Sulfa (Sulfonamide Antibiotics) Allergy (Verified 08/20/24 19:40) Difficulty Breathing sulfamethoxazole (From Bactrim) Allergy (Verified 08/20/24 19:40) Difficulty Breathing trimethoprim (From Bactrim) Allergy (Verified 08/20/24 19:40) Difficulty Breathing Home Medications alprazolam 1 mg tablet (Xanax) 1 mg PO QHS PRN sleep 08/20/24 [History Confirmed 08/25/24] ascorbic acid (vitamin C) 1,000 mg capsule 1 g PO DAILY 08/21/24 [History Confirmed 08/25/24] aspirin 81 mg chewable tablet 81 mg PO DAILY 08/21/24 [History Confirmed 08/25/24] carbidopa 10 mg-levodopa 100 mg tablet (Sinemet) 1 tab PO TID 08/21/24 [History Confirmed 08/25/24] cholecalciferol (vitamin D3) 125 mcg (5,000 unit) capsule 125 mcg PO DAILY 08/21/24 [History Confirmed 08/25/24] lutein 25 mg-zeaxanthin 5 mg capsule 1 cap PO DAILY 08/21/24 [History Confirmed 08/25/24] multivitamin 1 tab PO DAILY 08/21/24 [History Confirmed 08/25/24] pantoprazole 40 mg tablet,delayed release 40 mg PO QAM 08/21/24 [History Confirmed 08/25/24] potassium chloride 20 mEq tablet,extended release(part/cryst) (Klor-Con M) 20 meq PO BID 08/21/24 [History Confirmed 08/25/24] rasagiline 1 mg tablet 1 mg PO DAILY 08/21/24 [History Confirmed 08/25/24] zinc gluconate 50 mg tablet 50 mg PO DAILY 08/21/24 [History Confirmed 08/25/24] amantadine HCl 100 mg tablet 100 mg PO TID 08/24/24 [History Confirmed 08/25/24] amlodipine 5 mg tablet 5 mg PO DAILY #0 tabs 08/25/24 [Rx Confirmed 08/25/24] hydralazine 25 mg tablet 25 mg PO BID #60 tabs 08/25/24 [Rx Confirmed 08/25/24] meropenem 1 gram intravenous solution 1 g IV Q12H 1 day #0 ea 08/25/24 [Rx Confirmed 08/25/24] quetiapine 25 mg tablet 25 mg PO QHS #0 tabs 08/25/24 [Rx Confirmed 08/25/24] ropinirole 0.25 mg tablet 0.25 mg PO QHS #0 tabs 08/25/24 [Rx Confirmed 08/25/24] Exam Physical Exam Vital Signs: Temp Pulse Resp BP Pulse Ox O2 Del Method 97.9 F 84 16 108/62 95 Room Air 09/03/24 07:34 09/03/24 11:17 09/03/24 11:17 09/03/24 11:17 09/03/24 11:17 09/03/24 11:34 Narrative: The patient is sitting up in a chair with family. She states that she does haveleft hip pain at times when attempting to get up however does not have pain at this point. Const General: cooperative and no acute distress HEENT Head: normal to inspection and atraumatic Neck Neck: normal visual inspection and full ROM Resp Effort & Inspection: normal respiratory effort Extrem Other: Right upper extremity: There is a splint in place over the right hand and forearm from recent surgery. Moving fingers well. Nonpainful active motion left shoulder elbow and wrist. Patient is demonstrating nonpainful active rotation of the left hip as well as nonpainful passive motion of the hip in flexion and extension as well as rotation. Moving knee and ankle actively without difficulty. Both legs are well- vascularized. Skin intact bilaterally Painful passive and active motion right hip, knee and ankle nonpainful. Results - Orthopedics Lab Results 09/02/24 05:23 09/03/24 05:31 Labs: Laboratory Results - Last 48 hrs. 09/03/24 05:31: PHA Creatinine Clear 28.68, Sodium 140, Potassium 4.8, Chloride 108 H, Carbon Dioxide 24.7, Anion Gap 12.1, BUN 34 H, Creatinine 1.22 H, Est GFR(CKD-EPI) 45.423, Glucose 80, Calcium 10.9 H 09/02/24 05:23: Corrected WBC 8.7, Uncorrected WBC Count 8.7, RBC 3.95, Hgb 12.6, Hct 37.2, MCV 94.1, MCH 31.8, MCHC 33.8, RDW 15.0, Plt Count 194 D, MPV 11.2 H, Neut % (Auto) 65.3, Lymph % (Auto) 15.8, [place] % (Auto) 17.1, Eos % (Auto) 1.1, Baso % (Auto) 0.7, Nucleat RBC Rel Count 0.2, Neut # (Auto) 5.7, Lymph # (Auto) 1.4, [place] # (Auto) 1.5 H, Eos # (Auto) 0.1, Baso # (Auto) 0.1, Platelet Estimate Normal, Large Platelets Slight, Plt Morphology Comment N/A, RBC Morphology N/A, Poikilocytosis Slight, Target Cells Slight, Ovalocytes Slight, Crenated Cell Slight, PHA Creatinine Clear 27.12, Sodium 136 D, Potassium 4.6, Chloride 105, Carbon Dioxide 25.9, Anion Gap 9.7, BUN 31 H, Creatinine 1.29 H, Est GFR (CKD-EPI) 42.482, Glucose 86, Calcium 11.1 H H & H 08/26/24 08/31/24 09/02/24 Range/Units 05:02 10:57 05:23 Hgb 13.0 13.6 12.6 (11.8-15.4) g/dL Hct 38.7 39.8 37.2 (34.0-46.4) % All other labs are normal. Microbiology Results Microbiology: Microbiology - Results from entire visit 08/30/24 09:30 Urine - Clean-Voided Midstream Urine Culture - Final 50,000 colonies/ml mixed bacterial skin contaminants 2 Days Imaging & Diagnostic Results Imaging/Diagnostics: AP pelvis and lateral x-rays of the left hip demonstrate nondisplaced superior and inferior pubic ramus fracture. Assessment/Plan (1) Fracture of left superior pubic ramus: Code(s): S32.512A - Fracture of superior rim of left pubis, initial encounter for closed fracture Plan Patient appears to have sustained left superior and inferior pubic ramus fracture. These are stable fractures. She is doing quite well. We will allow continued range of motion exercises and progressive weightbearing as pain allowswith a walker. I would expect approximately 6 weeks healing. Will be happy to see her in the office in about 4 weeks after discharge from rehab. Documented By: Henrry Jon MD 09/03/24 1147 Signed By: <Electronically signed by MD Henrry Jon> 09/03/24 1156 [facility] Work Phone: [phone]) 787-710203-26-2025 [place] [address] Orthopedic Consult Note Signed Patient: Judith Land MR#: [id number] : 1945 Acct:[id number] Age/Sex: 79 / F Adm Date: 5 Loc: Room: 0R4857-8 Type: ADM IN Attending Dr: Pa Neil MD Copies to: MD Kavon Champion MD Thomas A Olexa, MD~ History of Present Illness HPI Consult date: 09/03/2024 Requesting provider: Pa Neil MD History of present illness: 71-year-old female currently in the rehab facility. She states that she fell onto her left side andhas been having left hip pain. X-rays readings have demonstrated left superior inferior pubic ramusfracture. Orthopedics will be consulted for evaluation. She states that she did recently fall and sustained aright wrist fracture for which she underwent fixation in [place]. 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 Family History Mother Stroke Father Cancer Lung Son Cancer Lymphoma Social History Smoking Status: Former smoker Tobacco Type: cigarettes Substance Use Type: None Allergies & Medications Medications and Allergies Allergies Sulfa (Sulfonamide Antibiotics) Allergy (Verified 08/20/24 19:40) Difficulty Breathing sulfamethoxazole (From Bactrim) Allergy (Verified 08/20/24 19:40) Difficulty Breathing trimethoprim (From Bactrim) Allergy (Verified 08/20/24 19:40) Difficulty Breathing Home Medications alprazolam 1 mg tablet (Xanax) 1 mg PO QHS PRN sleep 08/20/24 [History Confirmed 08/25/24] ascorbic acid (vitamin C) 1,000 mg capsule 1 g PO DAILY 08/21/24 [History Confirmed 08/25/24] aspirin 81 mg chewable tablet 81 mg PO DAILY 08/21/24 [History Confirmed 08/25/24] carbidopa 10 mg-levodopa 100 mg tablet (Sinemet) 1 tab PO TID 08/21/24 [History Confirmed 08/25/24] cholecalciferol (vitamin D3) 125 mcg (5,000 unit) capsule 125 mcg PO DAILY 08/21/24 [History Confirmed 08/25/24] lutein 25 mg-zeaxanthin 5 mg capsule 1 cap PO DAILY 08/21/24 [History Confirmed 08/25/24] multivitamin 1 tab PO DAILY 08/21/24 [History Confirmed 08/25/24] pantoprazole 40 mg tablet,delayed release 40 mg PO QAM 08/21/24 [History Confirmed 08/25/24] potassium chloride 20 mEq tablet,extended release(part/cryst) (Klor-Evan M) 20 meq PO BID 08/21/24 [History Confirmed 08/25/24] rasagiline 1 mg tablet 1 mg PO DAILY 08/21/24 [History Confirmed 08/25/24] zinc gluconate 50 mg tablet 50 mg PO DAILY 08/21/24 [History Confirmed 08/25/24] amantadine HCl 100 mg tablet 100 mg PO TID 08/24/24 [History Confirmed 08/25/24] amlodipine 5 mg tablet 5 mg PO DAILY #0 tabs 08/25/24 [Rx Confirmed 08/25/24] hydralazine 25 mg tablet 25 mg PO BID #60 tabs 08/25/24 [Rx Confirmed 08/25/24] meropenem 1 gram intravenous solution 1 g IV Q12H 1 day #0 ea 08/25/24 [Rx Confirmed 08/25/24] quetiapine 25 mg tablet 25 mg PO QHS #0 tabs 08/25/24 [Rx Confirmed 08/25/24] ropinirole 0.25 mg tablet 0.25 mg PO QHS #0 tabs 08/25/24 [Rx Confirmed 08/25/24] Exam Physical Exam Vital Signs: Temp Pulse Resp BP Pulse Ox O2 Del Method 97.9 F 84 16 108/62 95 Room Air 09/03/24 07:34 09/03/24 11:17 09/03/24 11:17 09/03/24 11:17 09/03/24 11:17 09/03/24 11:34 Narrative: The patient is sitting up in a chair with family. She states that she does haveleft hip pain at times when attempting to get up however does not have pain at this point. Const General: cooperative and no acute distress HEENT Head: normal to inspection and atraumatic Neck Neck: normal visual inspection and full ROM Resp Effort & Inspection: normal respiratory effort Extrem Other: Right upper extremity: There is a splint in place over the right hand and forearm from recent surgery. Moving fingers well. Nonpainful active motion left shoulder elbow and wrist. Patient is demonstrating nonpainful active rotation of the left hip as well as nonpainful passive motion of the hip in flexion and extension as well as rotation. Moving knee and ankle actively without difficulty. Both legs are well- vascularized. Skin intact bilaterally Painful passive and active motion right hip, knee and ankle nonpainful. Results - Orthopedics Lab Results 09/02/24 05:23 09/03/24 05:31 Labs: Laboratory Results - Last 48 hrs. 09/03/24 05:31: PHA Creatinine Clear 28.68, Sodium 140, Potassium 4.8, Chloride 108 H, Carbon Dioxide 24.7, Anion Gap 12.1, BUN 34 H, Creatinine 1.22 H, Est GFR(CKD-EPI) 45.423, Glucose 80, Calcium 10.9 H 09/02/24 05:23: Corrected WBC 8.7, Uncorrected WBC Count 8.7, RBC 3.95, Hgb 12.6, Hct 37.2, MCV 94.1, MCH 31.8, MCHC 33.8, RDW 15.0, Plt Count 194 D, MPV 11.2 H, Neut % (Auto) 65.3, Lymph % (Auto) 15.8, [place] % (Auto) 17.1, Eos % (Auto) 1.1, Baso % (Auto) 0.7, Nucleat RBC Rel Count 0.2, Neut # (Auto) 5.7, Lymph # (Auto) 1.4, [place] # (Auto) 1.5 H, Eos # (Auto) 0.1, Baso # (Auto) 0.1, Platelet Estimate Normal, Large Platelets Slight, Plt Morphology Comment N/A, RBC Morphology N/A, Poikilocytosis Slight, Target Cells Slight, Ovalocytes Slight, Crenated Cell Slight, PHA Creatinine Clear 27.12, Sodium 136 D, Potassium 4.6, Chloride 105, Carbon Dioxide 25.9, Anion Gap 9.7, BUN 31 H, Creatinine 1.29H, Est GFR (CKD-EPI) 42.482, Glucose 86, Calcium 11.1 H H & H 08/26/24 08/31/24 09/02/24 Range/Units 05:02 10:57 05:23 Hgb 13.0 13.6 12.6 (11.8-15.4) g/dL Hct 38.7 39.8 37.2 (34.0-46.4) % All other labs are normal. Microbiology Results Microbiology: Microbiology - Results from entire visit 08/30/24 09:30 Urine - Clean-Voided Midstream Urine Culture - Final 50,000 colonies/ml mixed bacterial skin contaminants 2 Days Imaging & Diagnostic Results Imaging/Diagnostics: AP pelvis and lateral x-rays of the left hip demonstrate nondisplaced superior and inferior pubic ramus fracture. Assessment/Plan (1) Fracture of left superior pubic ramus: Code(s): S32.512A - Fracture of superior rim of left pubis, initial encounter for closed fracture Plan Patient appears to have sustained left superior and inferior pubic ramus fracture. These are stablefractures. She is doing quite well. We will allow continued range of motion exercises and progressive weightbearing as pain allowswith a walker. I would expect approximately 6 weeks healing. Will be happy to see her in the office in about 4 weeks after discharge from rehab. Documented By: Henrry Jon MD 09/03/24 1147 Signed By: 09/03/24 1159 [facility]03-26-2025 Progress note Author Pa Neil [facility] Note Date/Time September 02, 2024 10: 14pm [facility] [address] [place] [address] Physiatry(Rehab) Progress Note Signed Patient: Judith Land MR#: [id number] : 1945 Acct:[id number] Age/Sex: 79 / F Adm Date: 5 Loc: Room: 0Y0055-5 Type: ADM IN Attending Dr: Pa Neil MD Copies to: ~ Date of Service: 09/02/2024 Subjective Subjective Narrative: Ms. Land is a 79 year old female with a PMH of Parkinson disease, HTN, HLD, CAD, anxiety, RLS, chronic pain who presents to the rehab unit due to multifactorial functional decline in the setting of an acute UA with hospital course complicated by metabolic encephalopathy. She initially presented to the hospital due confusion for several days. She had been treated outpatient for about a month for a UTI without resolution of her infection. While hospitalized,she became acutely agitated requiring sedatives and 1:1. Gradually improved. Urine culture grew Pseudomonas for which she was started on Meropenem. OF note, the patient had a recent fall with fracture of the right arm and is in a splint. The patient lives with her daughter in a condo with 1 step to enter. Does not use an assistive device. This patient was seen and evaluated today. Family at bedside. She appears in no distress. Family had some questions today regarding patients recurrent UTIs. Gave advice including hydration, emptying bladder completely, proper hygiene. The patient is otherwise doing well. She does have a fracture of the radius and ulna on the right and family tells me that this was just recently repaired on August 12. They note that she was NWB post op but have not had follow up yet with Dr. Lyn. Interval history: Patient examined in her room today. Lying in bed. She appears in no distress. She notes that her tremors seem worse today. Does not appears confused today. Nochest pain, SOB, fever, chills. CT head negative for acute intracranial abnormality. Seen by neurology, recommending correction of ANTONIO. Otherwise continue current care. Discussed during team meeting. Will have another FI this week. Plan for DC home this weekend. Review of Systems Review of Systems All other systems reviewed & are negative unless noted below or in HPI Exam Physical Exam Vital Signs: Temp Pulse Resp BP Pulse Ox O2 Del Method 97.3 F L 89 16 111/51 L 93 L Room Air 09/02/24 13:58 09/02/24 13:58 09/02/24 13:58 09/02/24 13:58 09/02/24 13:58 09/02/24 13:58 Narrative: NAD. Sitting up in chair. Appears less confused today. answers questions appropriately Extremities well perfused No respiratory distress RRR Abdomen soft, non distended DELMER. Tremor appreciated in all 4 extremities Speech is normal, fluent Objective Labs 09/02/24 05:23 09/02/24 05:23 Labs: Laboratory Results - last 24 hr 09/02/24 05:23 Corrected WBC 8.7 Uncorrected WBC Count 8.7 RBC 3.95 Hgb 12.6 Hct 37.2 MCV 94.1 MCH 31.8 MCHC 33.8 RDW 15.0 Plt Count 194 D MPV 11.2 H Neut % (Auto) 65.3 Lymph % (Auto) 15.8 [place] % (Auto) 17.1 Eos % (Auto) 1.1 Baso % (Auto) 0.7 Nucleat RBC Rel Count 0.2 Neut # (Auto) 5.7 Lymph # (Auto) 1.4 [place] # (Auto) 1.5 H Eos # (Auto) 0.1 Baso # (Auto) 0.1 Platelet Estimate Normal Large Platelets Slight Plt Morphology Comment N/A RBC Morphology N/A Poikilocytosis Slight Target Cells Slight Ovalocytes Slight Crenated Cell Slight PHA Creatinine Clear 27.12 Sodium 136 D Potassium 4.6 Chloride 105 Carbon Dioxide 25.9 Anion Gap 9.7 BUN 31 H Creatinine 1.29 H Est GFR (CKD-EPI) 42.482 Glucose 86 Calcium 11.1 H Medications and Allergies Allergies and Active Meds: Allergies Sulfa (Sulfonamide Antibiotics) Allergy (Verified 08/20/24 19:40) Difficulty Breathing sulfamethoxazole (From Bactrim) Allergy (Verified 08/20/24 19:40) Difficulty Breathing trimethoprim (From Bactrim) Allergy (Verified 08/20/24 19:40) Difficulty Breathing Active Medications Generic Name Dose Route Start Last Admin Trade Name Freq PRN Reason Stop Dose Admin Acetaminophen 500 mg 08/25/24 15:48 Acetaminophen 500 Mg Tablet PO 08/25/25 15:47 Q4H PRN Pain Al Hydrox/Mg Hydrox/Simethicone 30 ml 08/25/24 15:48 Mag Hydrox/Al Hydrox/Simeth 30 Ml Udc PO 08/25/25 15:47 Q4H PRN Indigestion Alprazolam 1 mg 08/25/24 15:53 09/02/24 22:02 Alprazolam 0.5 Mg Tablet PO 1 mg QHS PRN Administration sleep Amantadine HCl 100 mg 08/25/24 22:00 09/02/24 22:02 Amantadine 100 Mg Capsule PO 08/25/25 21:59 100 mg TID LLYOD Administration Amlodipine Besylate 10 mg 08/27/24 09:00 09/02/24 09:31 Amlodipine 10 Mg Tablet PO 08/27/25 08:59 10 mg DAILY LLOYD Administration Ascorbic Acid 1,000 mg 08/26/24 09:00 09/02/24 09:31 Ascorbic Acid 500 Mg Tablet PO 08/26/25 08:59 1,000 mg DAILY LLOYD Administration Aspirin 81 mg 08/26/24 09:00 09/02/24 09:31 Aspirin 81 Mg Tab.Chew PO 08/26/25 08:59 81 mg DAILY LLOYD Administration Bisacodyl 10 mg 08/25/24 15:48 Bisacodyl 10 Mg Supp.Rect WI 08/25/25 15:47 DAILY PRN Constipation Carbidopa/Levodopa 1 tab 09/01/24 12:00 09/02/24 17:51 Carbidopa/Levodopa 10-100 Mg 1 Tab Tablet PO 09/01/25 11:59 1 tab TID@0700,1200,1700 LLOYD Administration Docusate Sodium 100 mg 08/25/24 15:48 09/02/24 22:01 Docusate 100 Mg Capsule PO 08/25/25 15:47 100 mg BID PRN Administration Constipation Docusate Sodium 283 mg 08/25/24 15:48 Docusate Enema 283 Mg/5 Ml Enema WI 08/25/25 15:47 DAILY PRN Constipation Heparin Sodium (Porcine) 5,000 unit 08/25/24 21:00 09/02/24 22:03 Heparin 5,000 Unit/Ml Vial SUBCUT 08/25/25 20:59 5,000 unit Q12HR LLOYD Administration Hydralazine HCl 25 mg 08/25/24 21:00 09/02/24 22:02 Hydralazine 25 Mg Tablet PO 08/25/25 20:59 25 mg BID LLOYD Administration Lactulose 30 gm 08/25/24 15:48 Lactulose 20 Gm/30 Ml Udc PO 08/25/25 15:47 DAILY PRN Constipation Megestrol Acetate 400 mg 09/03/24 09:00 Megestrol Susp 400 Mg/10 Ml Udc PO 09/02/25 08:59 QAM LLOYD Multivitamins 1 tab 08/26/24 09:00 09/02/24 09:31 Multivitamin 1 Tab Tablet PO 08/26/25 08:59 1 tab DAILY LLOYD Administration Ondansetron HCl 4 mg 09/01/24 14:16 09/01/24 14:21 Ondansetron Odt 4 Mg Tab.Rapdis PO 09/01/25 14:15 4 mg Q6HR PRN Administration Nausea And Vomiting Pantoprazole Sodium 40 mg 08/26/24 09:00 09/02/24 09:32 Pantoprazole 40 Mg Tablet.Dr PO 08/26/25 08:59 40 mg QAM LLOYD Administration Potassium Chloride 20 meq 08/25/24 21:00 09/02/24 22:02 Potassium Chloride Er 20 Meq Tab.Er.Prt PO 08/25/25 20:59 20 meq BID LLOYD Administration Rasagiline 1 mg 08/26/24 09:00 09/02/24 09:31 Rasagiline 1 Mg Tablet PO 08/26/25 08:59 1 mg DAILY LLOYD Administration Ropinirole HCl 0.25 mg 08/25/24 22:00 09/02/24 22:03 Ropinirole 0.25 Mg Tablet PO 08/25/25 21:59 0.25 mg QHS LLOYD Administration Sennosides 17.2 mg 08/26/24 12:00 08/31/24 08:42 Sennosides 8.6 Mg Tablet PO 08/26/25 11:59 17.2 mg DAILY@12 PRN Administration If no BM in 2 days Sodium Chloride 0 ml 08/25/24 15:48 08/27/24 05:40 Sodium Chloride 0.9 % 10 Ml Syringe IV-PUSH 08/25/25 15:47 10 ml PRN PRN Administration Flush Vitamin D 125 mcg 08/26/24 09:00 09/02/24 09:31 Cholecalciferol 125 Mcg (5,000 Units) Capsule PO 08/26/25 08:59 125 mcg DAILY LLOYD Administration Zinc Gluconate 50 mg 08/26/24 09:00 09/02/24 09:31 Zinc Gluconate 50 Mg Tablet PO 08/26/25 08:59 50 mg DAILY LLOYD Administration Assessment/Plan Assessment/Plan (1) Parkinsons disease: Qualifiers: Dyskinesia presence: without dyskinesia Fluctuating manifestations: without fluctuating manifestations Qualified Code(s): G20.A1 - Parkinson's disease without dyskinesia, without mention of fluctuations (2) Metabolic encephalopathy: (3) Acute UTI: (4) HTN (hypertension): (5) Anxiety: (6) Impaired mobility and activities of daily living: Plan This is a 79-year-old female who presents to [facility] due to multifactorial functional decline in the setting of acute UTI with metabolic encephalopathy in the setting of Parkinsons Disease. She has continued impaired mobility and impaired independence with ADLs and IADLs requiring PT/OT/DRY JANITOR 5-7 days/week 3 hours/day to maximize safety and independence with functional ability and self-care. -PT to improve patient's strength, endurance, bed mobility, transfers (sit- stand), standing balance, gait quality on level surfaces and stairs, coordination and functional ADL skills. We will also work to improve patient's safety awareness during transfers and ambulation. -OT for basic ADL retraining (bathing, dressing, toileting, continence, grooming, feeding, transferring), to increase activity tolerance and functional mobility to evaluate for adaptive assistive device. We will work to improve patient's endurance and educate patient on fall prevention and energy conservation techniques-pacing strategies and proper breathing techniques duringfunctional tasks. -Patient education -Pressure ulcer prophylaxis; encourage mobilization, frequent postural changes, pressure-relief techniques -DVT prophylaxis -Encourage deep breathing exercise incentive spirometry. -Monitor bladder. Toileting schedule. Continue current bladder management, with scans as needed and CIC if needed. Start bowel care program every day to obtain continence, prevent ileus. -Maintain fall precautions -Gait and balance retraining -Provision of the necessary gait aids and functional adaptive equipment to enhance the patient's a functional taoism -Encourage deep breathing exercises and incentive spirometry -RD evaluation -Ensure adequate nutrition and hydration -Discharge planning. #. UPDATES -Cognition seems to be improving -Discussed adequate hydration with the patient. Will recheck labs in AM -Continue current care. Will have another FI this week with hopeful DC home thisweekend -NWB RUE per patients orthopedic surgeon -Completed meropenem. -Continue home medications for chronic medical conditions -PD: Sinemet 10-100 TID, Azilect daily, Requip 0.25 mg qhs, Amantadine 100 mgTID -HTN: Norvasc 5 mg daily, Hydralazine 25 mg BID -Anxiety: Xanax 1 mg qhs PRN -Continue PT/OT/St -Hospitalist to assist with management of comorbid medical conditions #. Pain control: Tylenol PRN, #. Bowel and bladder: Continent of Bowel/bladder #. Skin: (pressure ulcer/surgical site) Pressure ulcer prophylaxis; encourage mobilization, frequent postural changes, pressure-relief techniques #. Sleep: Optimize sleep/wake cycle DVT prophylaxis: Heparin 5000 units q12hr Functional status: Impaired. Limited by pain, weakness Discharge planning: [facility] 1-2 weeks I spent 25 minutes for services, including [id number] encounter with the patient, discussion of the case, plan of care, and exam; and bfiaire-wj-[id number] activities, such as reviewing pertinent integrity consultant documentation, recent therapynotes, laboratory and radiology studies, and discussion of case with care team including physician, nursing, caser, and therapists. More than 50 % of time was spent on patient/family counseling or coordination ofcare. Documented By: Pa Neil MD [id number] Signed By: <Electronically signed by Pa Neil MD> 09/02/242213 [facility] Work Phone: [phone]) 413-236203-25-2025 [place] [address] Physiatry(Rehab) Progress Note Signed Patient: Judith Land MR#: [id number] : 1945 Acct:[id number] Age/Sex: 79 / F Adm Date: 5 Loc: Room: [address] [place] [address] Type: ADM IN Attending Dr: Pa Neil MD Copies to: ~ Date of Service: 09/02/2024 Subjective Subjective Narrative: Ms. Land is a 79 year old female with a PMH of Parkinson disease, HTN, HLD, CAD, anxiety, RLS, chronic pain who presents to the rehab unit due to multifactorial functional decline in the setting of an acute UA with hospital course complicated by metabolic encephalopathy. She initially presented to the hospital due confusion for several days. She had been treated outpatient for about a month for a UTI without resolution of her infection. While hospitalized,she became acutely agitated requiring sedatives and 1:1. Gradually improved. Urine culture grew Pseudomonas for which she was started onMeropenem. OF note, the patient had a recent fall with fracture of the right arm and is in a splint. The patient lives with her daughter in a condo with 1 step to enter. Does not use an assistive device. This patient was seen and evaluated today. Family at bedside. She appears in no distress. Family had some questions today regarding patients recurrent UTIs. Gave advice including hydration, emptying bladder completely, proper hygiene. The patient is otherwise doing well. She does have a fracture ofthe radius and ulna on the right and family tells me that this was just recently repaired on August 12. They note that she was NWB post op but have not had follow up yet with Dr. Lyn. Interval history: Patient examined in her room today. Lying in bed. She appears in no distress. She notes that her tremors seem worse today. Does not appears confused today. Nochest pain, SOB, fever, chills. CT head negative for acute intracranial abnormality. Seen by neurology, recommending correction of ANTONIO. Otherwise continue current care. Discussed during team meeting. Will have another FI this week. Plan for DC home this weekend. Review of Systems Review of Systems All other systems reviewed & are negative unless noted below or in HPI Exam Physical Exam Vital Signs: Temp Pulse Resp BP Pulse Ox O2 Del Method 97.3 F L 89 16 111/51 L 93 L Room Air 09/02/24 13:58 09/02/24 13:58 09/02/24 13:58 09/02/24 13:58 09/02/24 13:58 09/02/24 13:58 Narrative: NAD. Sitting up in chair. Appears less confused today. answers questions appropriately Extremities well perfused No respiratory distress RRR Abdomen soft, non distended DELMER. Tremor appreciated in all 4 extremities Speech is normal, fluent Objective Labs 09/02/24 05:23 09/02/24 05:23 Labs: Laboratory Results - last 24 hr 09/02/24 05:23 Corrected WBC 8.7 Uncorrected WBC Count 8.7 RBC 3.95 Hgb 12.6 Hct 37.2 MCV 94.1 MCH 31.8 MCHC 33.8 RDW 15.0 Plt Count 194 D MPV 11.2 H Neut % (Auto) 65.3 Lymph % (Auto) 15.8 [place] % (Auto) 17.1 Eos % (Auto) 1.1 Baso % (Auto) 0.7 Nucleat RBC Rel Count 0.2 Neut # (Auto) 5.7 Lymph # (Auto) 1.4 [place] # (Auto) 1.5 H Eos # (Auto) 0.1 Baso # (Auto) 0.1 Platelet Estimate Normal Large Platelets Slight Plt Morphology Comment N/A RBC Morphology N/A Poikilocytosis Slight Target Cells Slight Ovalocytes Slight Crenated Cell Slight PHA Creatinine Clear 27.12 Sodium 136 D Potassium 4.6 Chloride 105 Carbon Dioxide 25.9 Anion Gap 9.7 BUN 31 H Creatinine 1.29 H Est GFR (CKD-EPI) 42.482 Glucose 86 Calcium 11.1 H Medications and Allergies Allergies and Active Meds: Allergies Sulfa (Sulfonamide Antibiotics) Allergy (Verified 08/20/24 19:40) Difficulty Breathing sulfamethoxazole (From Bactrim) Allergy (Verified 08/20/24 19:40) Difficulty Breathing trimethoprim (From Bactrim) Allergy (Verified 08/20/24 19:40) Difficulty Breathing Active Medications Generic Name Dose Route Start Last Admin Trade Name Freq PRN Reason Stop Dose Admin Acetaminophen 500 mg 08/25/24 15:48 Acetaminophen 500 Mg Tablet PO 08/25/25 15:47 Q4H PRN Pain Al Hydrox/Mg Hydrox/Simethicone 30 ml 08/25/24 15:48 Mag Hydrox/Al Hydrox/Simeth 30 Ml Udc PO 08/25/25 15:47 Q4H PRN Indigestion Alprazolam 1 mg 08/25/24 15:53 09/02/24 22:02 Alprazolam 0.5 Mg Tablet PO 1 mg QHS PRN Administration sleep Amantadine HCl 100 mg 08/25/24 22:00 09/02/24 22:02 Amantadine 100 Mg Capsule PO 08/25/25 21:59 100 mg TID LLOYD Administration Amlodipine Besylate 10 mg 08/27/24 09:00 09/02/24 09:31 Amlodipine 10 Mg Tablet PO 08/27/25 08:59 10 mg DAILY LLOYD Administration Ascorbic Acid 1,000 mg 08/26/24 09:00 09/02/24 09:31 Ascorbic Acid 500 Mg Tablet PO 08/26/25 08:59 1,000 mg DAILY LLOYD Administration Aspirin 81 mg 08/26/24 09:00 09/02/24 09:31 Aspirin 81 Mg Tab.Chew PO 08/26/25 08:59 81 mg DAILY LLOYD Administration Bisacodyl 10 mg 08/25/24 15:48 Bisacodyl 10 Mg Supp.Rect WI 08/25/25 15:47 DAILY PRN Constipation Carbidopa/Levodopa 1 tab 09/01/24 12:00 09/02/24 17:51 Carbidopa/Levodopa 10-100 Mg 1 Tab Tablet PO 09/01/25 11:59 1 tab TID@0700,1200,1700 LLOYD Administration Docusate Sodium 100 mg 08/25/24 15:48 09/02/24 22:01 Docusate 100 Mg Capsule PO 08/25/25 15:47 100 mg BID PRN Administration Constipation Docusate Sodium 283 mg 08/25/24 15:48 Docusate Enema 283 Mg/5 Ml Enema WI 08/25/25 15:47 DAILY PRN Constipation Heparin Sodium (Porcine) 5,000 unit 08/25/24 21:00 09/02/24 22:03 Heparin 5,000 Unit/Ml Vial SUBCUT 08/25/25 20:59 5,000 unit Q12HR LLOYD Administration Hydralazine HCl 25 mg 08/25/24 21:00 09/02/24 22:02 Hydralazine 25 Mg Tablet PO 08/25/25 20:59 25 mg BID LLOYD Administration Lactulose 30 gm 08/25/24 15:48 Lactulose 20 Gm/30 Ml Udc PO 08/25/25 15:47 DAILY PRN Constipation Megestrol Acetate 400 mg 09/03/24 09:00 Megestrol Susp 400 Mg/10 Ml Udc PO 09/02/25 08:59 QAM LLOYD Multivitamins 1 tab 08/26/24 09:00 09/02/24 09:31 Multivitamin 1 Tab Tablet PO 08/26/25 08:59 1 tab DAILY LLOYD Administration Ondansetron HCl 4 mg 09/01/24 14:16 09/01/24 14:21 Ondansetron Odt 4 Mg Tab.Rapdis PO 09/01/25 14:15 4 mg Q6HR PRN Administration Nausea And Vomiting Pantoprazole Sodium 40 mg 08/26/24 09:00 09/02/24 09:32 Pantoprazole 40 Mg Tablet.Dr PO 08/26/25 08:59 40 mg QAM LLOYD Administration Potassium Chloride 20 meq 08/25/24 21:00 09/02/24 22:02 Potassium Chloride Er 20 Meq Tab.Er.Prt PO 08/25/25 20:59 20 meq BID LLOYD Administration Rasagiline 1 mg 08/26/24 09:00 09/02/24 09:31 Rasagiline 1 Mg Tablet PO 08/26/25 08:59 1 mg DAILY LLOYD Administration Ropinirole HCl 0.25 mg 08/25/24 22:00 09/02/24 22:03 Ropinirole 0.25 Mg Tablet PO 08/25/25 21:59 0.25 mg QHS LLOYD Administration Sennosides 17.2 mg 08/26/24 12:00 08/31/24 08:42 Sennosides 8.6 Mg Tablet PO 08/26/25 11:59 17.2 mg DAILY@12 PRN Administration If no BM in 2 days Sodium Chloride 0 ml 08/25/24 15:48 08/27/24 05:40 Sodium Chloride 0.9 % 10 Ml Syringe IV-PUSH 08/25/25 15:47 10 ml PRN PRN Administration Flush Vitamin D 125 mcg 08/26/24 09:00 09/02/24 09:31 Cholecalciferol 125 Mcg (5,000 Units) Capsule PO 08/26/25 08:59 125 mcg DAILY LLOYD Administration Zinc Gluconate 50 mg 08/26/24 09:00 09/02/24 09:31 Zinc Gluconate 50 Mg Tablet PO 08/26/25 08:59 50 mg DAILY LLOYD Administration Assessment/Plan Assessment/Plan (1) Parkinsons disease: Qualifiers: Dyskinesia presence: without dyskinesia Fluctuating manifestations: without fluctuating manifestations Qualified Code(s): G20.A1 - Parkinson's disease without dyskinesia, without mention of fluctuations (2) Metabolic encephalopathy: (3) Acute UTI: (4) HTN (hypertension): (5) Anxiety: (6) Impaired mobility and activities of daily living: Plan This is a 79-year-old female who presents to [facility] due to multifactorial functional decline in the setting of acute UTI with metabolic encephalopathy in the setting ofParkinsons Disease. She has continued impaired mobility and impaired independence with ADLs and IADLs requiring PT/OT/DRY JANITOR 5-7 days/week 3 hours/day to maximize safety and independence with functionalability and self-care. -PT to improve patient's strength, endurance, bed mobility, transfers (sit- stand), standing balance, gait quality on level surfaces and stairs, coordination and functional ADL skills. We will also work to improve patient's safety awareness during transfers and ambulation. -OT for basic ADL retraining (bathing, dressing, toileting, continence, grooming, feeding, transferring), to increase activity tolerance and functional mobility to evaluate for adaptive assistive device. We will work to improve patient's endurance and educate patient on fall prevention and energy co nservation techniques-pacing strategies and proper breathing techniques duringfunctional tasks. -Patient education -Pressure ulcer prophylaxis; encourage mobilization, frequent postural changes, pressure-relief techniques -DVT prophylaxis -Encourage deep breathing exercise incentive spirometry. -Monitor bladder. Toileting schedule. Continue current bladder management, with scans as needed andCIC if needed. Start bowel care program every day to obtain continence, prevent ileus. -Maintain fall precautions -Gait and balance retraining -Provision of the necessary gait aids and functional adaptive equipment to enhance the patient's a functional taoism -Encourage deep breathing exercises and incentive spirometry -RD evaluation -Ensure adequate nutrition and hydration -Discharge planning. #. UPDATES -Cognition seems to be improving -Discussed adequate hydration with the patient. Will recheck labs in AM -Continue current care. Will have another FI this week with hopeful DC home thisweekend -NWB RUE per patients orthopedic surgeon -Completed meropenem. -Continue home medications for chronic medical conditions -PD: Sinemet 10-100 TID, Azilect daily, Requip 0.25 mg qhs, Amantadine 100 mgTID -HTN: Norvasc 5 mg daily, Hydralazine 25 mg BID -Anxiety: Xanax 1 mg qhs PRN -Continue PT/OT/St -Hospitalist to assist with management of comorbid medical conditions #. Pain control: Tylenol PRN, #. Bowel and bladder: Continent of Bowel/bladder #. Skin: (pressure ulcer/surgical site) Pressure ulcer prophylaxis; encourage mobilization, frequent postural changes, pressure-relief techniques #. Sleep: Optimize sleep/wake cycle DVT prophylaxis: Heparin 5000 units q12hr Functional status: Impaired. Limited by pain, weakness Discharge planning: ELOS 1-2 weeks I spent 25 minutes for services, including [id number] encounter with the patient, discussion of the case, plan of care, and exam; and mwuonpj-sg-wush activities, such as reviewing pertinent integrity consultant documentation, recent therapynotes, laboratory and radiology studies, and discussion of case with care team including physician, nursing, caser, and therapists. More than 50 % of time was spent on patient/family counseling or coordination ofcare. Documented By: Pa Neil MD [id number] Signed By: 09/02/242213 [facility]03-24-2025 Progress note Author Baylee Ho [facility] Note Date/Time September 01, 2024 5:4 2pm [facility] [address] [place] [address] Hospitalist Progress Note Signed Patient: Judith Land MR#: [id number] : 1945 Acct:[id number] Age/Sex: 79 / F Adm Date: 5 Loc: Room: [address] [place] [address] Type: ADM IN Attending Dr: Pa Neil MD Copies to: ~ Date of Service: 09/01/2024 Subjective Subjective Narrative: Patient seen and examined. Daughter at bedside. She just returned from CT head. quite shaky getting from wheelchair to bed. Encouraged fluid and discussed yesterday labs. Staff indicates poor sleep and confusion. She is oriented to date, initially thought she was at home but quickly reoriented. Daughter concerned ongoing weight loss Exam Physical Exam Vital Signs: Temp Pulse Resp BP Pulse Ox O2 Del Method 97.4 F L 105 H 20 152/69 H 94 L Room Air 08/31/24 14:09 09/01/24 04:35 09/01/24 04:35 09/01/24 04:35 09/01/24 04:35 09/01/24 08:00 Narrative: CONST- alert, in bed, frail elderly female, mild confusion oriented x2-3 CARD- RRR no abnormal heart tones PULM- dimin without wheeze or rhonchi, RA ABD- S/NT, NABS, cachectic EXTREM- no edema BLE, calves nontender NEURO- generalized tremulousness Objective Lab Results 08/31/24 10:57 08/31/24 10:57 Microbiology Results Microbiology 08/30/24 09:30 Urine - Clean-Voided Midstream Urine Culture - Final 50,000 colonies/ml mixed bacterial skin contaminants 2 Days Meds Allergies and Active Meds Allergies Sulfa (Sulfonamide Antibiotics) Allergy (Verified 08/20/24 19:40) Difficulty Breathing sulfamethoxazole (From Bactrim) Allergy (Verified 08/20/24 19:40) Difficulty Breathing trimethoprim (From Bactrim) Allergy (Verified 08/20/24 19:40) Difficulty Breathing Active Meds: Active Medications Generic Name Dose Route Start Last Admin Trade Name Freq PRN Reason Stop Dose Admin Acetaminophen 500 mg 08/25/24 15:48 Acetaminophen 500 Mg Tablet PO 08/25/25 15:47 Q4H PRN Pain Al Hydrox/Mg Hydrox/Simethicone 30 ml 08/25/24 15:48 Mag Hydrox/Al Hydrox/Simeth 30 Ml Udc PO 08/25/25 15:47 Q4H PRN Indigestion Alprazolam 1 mg 08/25/24 15:53 08/31/24 21:33 Alprazolam 0.5 Mg Tablet PO 1 mg QHS PRN Administration sleep Amantadine HCl 100 mg 08/25/24 22:00 09/01/24 13:28 Amantadine 100 Mg Capsule PO 08/25/25 21:59 100 mg TID LLOYD Administration Amlodipine Besylate 10 mg 08/27/24 09:00 09/01/24 09:30 Amlodipine 10 Mg Tablet PO 08/27/25 08:59 10 mg DAILY LLOYD Administration Ascorbic Acid 1,000 mg 08/26/24 09:00 09/01/24 09:29 Ascorbic Acid 500 Mg Tablet PO 08/26/25 08:59 1,000 mg DAILY LLOYD Administration Aspirin 81 mg 08/26/24 09:00 09/01/24 09:29 Aspirin 81 Mg Tab.Chew PO 08/26/25 08:59 81 mg DAILY LLOYD Administration Bisacodyl 10 mg 08/25/24 15:48 Bisacodyl 10 Mg Supp.Rect WI 08/25/25 15:47 DAILY PRN Constipation Carbidopa/Levodopa 1 tab 09/01/24 12:00 09/01/24 13:28 Carbidopa/Levodopa 10-100 Mg 1 Tab Tablet PO 09/01/25 11:59 1 tab TID@0700,1200,1700 LLOYD Administration Docusate Sodium 100 mg 08/25/24 15:48 08/31/24 08:43 Docusate 100 Mg Capsule PO 08/25/25 15:47 100 mg BID PRN Administration Constipation Docusate Sodium 283 mg 08/25/24 15:48 Docusate Enema 283 Mg/5 Ml Enema WI 08/25/25 15:47 DAILY PRN Constipation Heparin Sodium (Porcine) 5,000 unit 08/25/24 21:00 09/01/24 09:30 Heparin 5,000 Unit/Ml Vial SUBCUT 08/25/25 20:59 5,000 unit Q12HR LLOYD Administration Hydralazine HCl 25 mg 08/25/24 21:00 09/01/24 09:29 Hydralazine 25 Mg Tablet PO 08/25/25 20:59 25 mg BID LLOYD Administration Lactulose 30 gm 08/25/24 15:48 Lactulose 20 Gm/30 Ml Udc PO 08/25/25 15:47 DAILY PRN Constipation Multivitamins 1 tab 08/26/24 09:00 09/01/24 09:30 Multivitamin 1 Tab Tablet PO 08/26/25 08:59 1 tab DAILY LLOYD Administration Ondansetron HCl 4 mg 09/01/24 14:16 09/01/24 14:21 Ondansetron Odt 4 Mg Tab.Rapdis PO 09/01/25 14:15 4 mg Q6HR PRN Administration Nausea And Vomiting Pantoprazole Sodium 40 mg 08/26/24 09:00 09/01/24 09:29 Pantoprazole 40 Mg Tablet.Dr PO 08/26/25 08:59 40 mg QAM LLOYD Administration Potassium Chloride 20 meq 08/25/24 21:00 09/01/24 09:30 Potassium Chloride Er 20 Meq Tab.Er.Prt PO 08/25/25 20:59 20 meq BID LLOYD Administration Quetiapine Fumarate 12.5 mg 09/01/24 21:00 Quetiapine Fumarate 12.5 Mg Tablet PO 09/01/24 21:01 ONCE@2100 ONE Rasagiline 1 mg 08/26/24 09:00 09/01/24 09:30 Rasagiline 1 Mg Tablet PO 08/26/25 08:59 1 mg DAILY LLOYD Administration Ropinirole HCl 0.25 mg 08/25/24 22:00 08/31/24 21:33 Ropinirole 0.25 Mg Tablet PO 08/25/25 21:59 0.25 mg QHS LLOYD Administration Sennosides 17.2 mg 08/26/24 12:00 08/31/24 08:42 Sennosides 8.6 Mg Tablet PO 08/26/25 11:59 17.2 mg DAILY@12 PRN Administration If no BM in 2 days Sodium Chloride 0 ml 08/25/24 15:48 08/27/24 05:40 Sodium Chloride 0.9 % 10 Ml Syringe IV-PUSH 08/25/25 15:47 10 ml PRN PRN Administration Flush Vitamin D 125 mcg 08/26/24 09:00 09/01/24 09:30 Cholecalciferol 125 Mcg (5,000 Units) Capsule PO 08/26/25 08:59 125 mcg DAILY LLOYD Administration Zinc Gluconate 50 mg 08/26/24 09:00 09/01/24 09:29 Zinc Gluconate 50 Mg Tablet PO 08/26/25 08:59 50 mg DAILY LLOYD Administration A&P - Hospitalist Assessment/Plan (1) Metabolic encephalopathy: (2) Impaired mobility and activities of daily living: Plan Acute Pseudomonas UTI, resolved Metabolic encephalopathy Sleep/Wake cycle disturbance Impaired mobility and activities of daily living Parkinsons ?Plan of care for rehabilitation, PT/OT, DVT prophylaxis, bowel regimen per PM&Rteam. -amantadine quetiapine carbidopa levodopa rasagiline, ropinirole weight loss Cachexia -megace initiated -supplement and dietitian Chronic conditions: 1. HTN? amlodipine, hydralazine, BP improved 2. Dementia with parkinsons 3. Anxiety- alprazolam Documented By: Baylee Ho APRN 08/10 Signed By: <Electronically signed by MIGUEL Ho> 09/01/24 1742 [facility] Work Phone: [phone] Progress note Author Baljeet Rao [facility] Note Date/Time September 01, 2024 3:5 2pm [facility] [address] [place] [address] Neurology Progress Note Signed Patient: Judith Land MR#: [id number] : 1945 Acct:[id number] Age/Sex: 79 / F Adm Date: 5 Loc: Room: 8R7929-0 Type: ADM IN Attending Dr: Pa Neil MD Copies to: ~ Date of Service: 09/01/2024 Subjective Subjective Narrative: I was asked to see this 79-year-old patient in consultation at the request of the physical medicine and rehabilitation service. The patient presented to the rehab unit with multifactorial functional decline in the setting of urinalysis and metabolic encephalopathy. I actually saw the patient 9 days ago in the hospital. She had been treated in the outpatient setting for UTI without resolution of infection and became agitated when she was hospitalized requiring sedative medication and a sitter. Ultimately cultures grew Pseudomonas and she was started on meropenem. She also had a right arm fracture due to a recent fall. Patient lives with her daughter in a condo and does not use an assistive device at baseline. Patient was evaluated today and was sitting up in the chair with family very concerned about the patient's confusion per the primary team's notes. To the rehab team she appeared actually more lucid today. She did not sleep well last night. In general has not slept well and would like to go home. Urine culture appears noninfectious and laboratory workup is largely unremarkable other than amild elevation in BUN and creatinine. Patient has been free of fever Repeat CT scan of the brain has been obtained. Review of Systems Review of Systems Unobtainable due to mental status Exam Physical Exam Vital Signs: Temp Pulse Resp BP Pulse Ox O2 Del Method 97.4 F L 105 H 20 152/69 H 94 L Room Air 08/31/24 14:09 09/01/24 04:35 09/01/24 04:35 09/01/24 04:35 09/01/24 04:35 09/01/24 08:00 Narrative: Narrative: GENERAL EXAM: Patient is alert and oriented x2. Patient is quite tremulous. However, she is sitting up in a chair and attempting to eat. This is certainly better than what I witnessed 9 days ago when I saw her NEURO EXAM: Cranial nerve II. Vision is intact. Pupils are equal Cranial nerve III, IV and . Extraocular muscles are intact. No nystagmus is appreciated Cranial nerve V and VII. No facial asymmetry is appreciated. Temperature and pinprick is equal bilaterally Cranial nerve VIII hearing is intact Cranial nerve IX and X speech is clear fluent. Palate elevates symmetrically Cranial nerve XI head turn side to side full range of motion. Shoulder shrug isequal bilaterally Cranial nerve XII tongue is midline full range of motion MOTOR EXAM: Strength is 5/5 throughout. No pronator drift was appreciated Muscle tone and bulk are normal SENSORY EXAM: Denies paresthesias CEREBELLAR EXAM: Alternating movements are intact. Finger to nose normal Gait not assessed Objective Vital Signs Vital Signs: Vital Signs - 24 hr 08/31/24 14:09 08/31/24 21:30 08/31/24 21:32 Temperature 97.4 F L Pulse Rate 130 H 100 Respiratory Rate 16 20 Blood Pressure 132/64 202/82 H 02 Sat by Pulse Oximetry 94 L 94 L Oxygen Delivery Method Room Air Room Air Room Air 08/31/24 22:25 09/01/24 04:35 09/01/24 08:00 Temperature Pulse Rate 95 105 H Respiratory Rate 18 20 Blood Pressure 156/76 H 152/69 H 02 Sat by Pulse Oximetry 94 L 94 L Oxygen Delivery Method Room Air Room Air Room Air Labs 08/31/24 10:57 08/31/24 10:57 Therapy Recommendations Therapy Recommendations: ST Recommendations Level of Supervision Independent Self Feeding Liquid Consistency Thin Liquids Recommendation Solid Consistency Regular Solids Recommendations Meat Consistency Whole Meats Recommendations Medication Administration Whole Pills,Give Pills with Water Dysphagia Swallow Precautions/ Sitting Upright (90 deg),Small Bites/Sips, Strategies Alternate Liquids/Solids,Pacing/Slow-Rate,Sit Upright [address] Recommended Services at Speech Therapy Discharge Assessment/Plan (1) Parkinsons disease: Qualifiers: Dyskinesia presence: without dyskinesia Fluctuating manifestations: without fluctuating manifestations Qualified Code(s): G20.A1 - Parkinson's disease without dyskinesia, without mention of fluctuations (2) Metabolic encephalopathy: (3) UTI (urinary tract infection): Qualifiers: Hematuria presence: without hematuria Urinary tract infection type: site unspecified Qualified Code(s): N39.0 - Urinary tract infection, site not specified (4) Anxiety: Plan It is my impression that the patient has metabolic encephalopathy which is likely multifactorial superimposed on her baseline neurodegenerative condition of Parkinson's. Being in her unfamiliar setting with recent infection and with small elevations in BUN and creatinine, I feel that this is led to a metabolic encephalopathy. I suspect the more recent confusion may be related to a subtle acute kidney injury. DATA REVIEW: BUN and creatinine were seen to rise from 08/26/2024 to 08/31/2024. There were noted to be 33 and 1.34 respectively yesterday. -Other labs reviewed -Patient recently treated for Pseudomonas UTI. 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 Plan: I would suggest continuation of Xanax given its extremely addictive nature I would suggest continuation of the patient's Parkinson's medication with assurance that is not given right before bedtime and is given at appropriate timings as stated I would suggest continuing to hold any muscle relaxer or gabapentin I would suggest correction of the acute kidney injury is overall I feel this is the most likely culprit, along with altered sleep-wake cycle and being out of her normal environment, for the more recent downturn in mental condition The patient previously required Haldol and higher doses of Seroquel I would suggest increasing Seroquel to 25 mg p.o. nightly this evening to hopefully allow for a more comfortable night of sleep for the patient. I would try to hold off on utilization of Haldol Neurology can follow with the patient in the outpatient setting for further recommendations. We will peripherally follow report of CT scan of the brain. Please call with any other questions or concerns Documented By: Baljeet Rao DO [id number] Signed By: <Electronically signed by Baljeet Rao DO> 09/01/24 7309 [facility] Work Phone: [phone]) 602-411503-24-20[place] [address] Hospitalist Progress Note Signed Patient: Judith Land MR#: [id number] : 1945 Acct:[id number] Age/Sex: 79 / F Adm Date: 5 Loc: Room: [address] [place] [address] Type: ADM IN Attending Dr: Pa Neil MD Copies to: ~ Date of Service: 09/01/2024 Subjective Subjective Narrative: Patient seen and examined. Daughter at bedside. She just returned from CT head. quite shaky gettingfrom wheelchair to bed. Encouraged fluid and discussed yesterday labs. Staff indicates poor sleep and confusion. She is oriented to date, initially thought she was at home but quickly reoriented. Daughter concerned ongoing weight loss Exam Physical Exam Vital Signs: Temp Pulse Resp BP Pulse Ox O2 Del Method 97.4 F L 105 H 20 152/69 H 94 L Room Air 08/31/24 14:09 09/01/24 04:35 09/01/24 04:35 09/01/24 04:35 09/01/24 04:35 09/01/24 08:00 Narrative: CONST- alert, in bed, frail elderly female, mild confusion oriented x2-3 CARD- RRR no abnormal heart tones PULM- dimin without wheeze or rhonchi, RA ABD- S/NT, NABS, cachectic EXTREM- no edema BLE, calves nontender NEURO- generalized tremulousness Objective Lab Results 08/31/24 10:57 08/31/24 10:57 Microbiology Results Microbiology 08/30/24 09:30 Urine - Clean-Voided Midstream Urine Culture - Final 50,000 colonies/ml mixed bacterial skin contaminants 2 Days Meds Allergies and Active Meds Allergies Sulfa (Sulfonamide Antibiotics) Allergy (Verified 08/20/24 19:40) Difficulty Breathing sulfamethoxazole (From Bactrim) Allergy (Verified 08/20/24 19:40) Difficulty Breathing trimethoprim (From Bactrim) Allergy (Verified 08/20/24 19:40) Difficulty Breathing Active Meds: Active Medications Generic Name Dose Route Start Last Admin Trade Name Freq PRN Reason Stop Dose Admin Acetaminophen 500 mg 08/25/24 15:48 Acetaminophen 500 Mg Tablet PO 08/25/25 15:47 Q4H PRN Pain Al Hydrox/Mg Hydrox/Simethicone 30 ml 08/25/24 15:48 Mag Hydrox/Al Hydrox/Simeth 30 Ml Udc PO 08/25/25 15:47 Q4H PRN Indigestion Alprazolam 1 mg 08/25/24 15:53 08/31/24 21:33 Alprazolam 0.5 Mg Tablet PO 1 mg QHS PRN Administration sleep Amantadine HCl 100 mg 08/25/24 22:00 09/01/24 13:28 Amantadine 100 Mg Capsule PO 08/25/25 21:59 100 mg TID LLOYD Administration Amlodipine Besylate 10 mg 08/27/24 09:00 09/01/24 09:30 Amlodipine 10 Mg Tablet PO 08/27/25 08:59 10 mg DAILY LLOYD Administration Ascorbic Acid 1,000 mg 08/26/24 09:00 09/01/24 09:29 Ascorbic Acid 500 Mg Tablet PO 08/26/25 08:59 1,000 mg DAILY LLOYD Administration Aspirin 81 mg 08/26/24 09:00 09/01/24 09:29 Aspirin 81 Mg Tab.Chew PO 08/26/25 08:59 81 mg DAILY LLOYD Administration Bisacodyl 10 mg 08/25/24 15:48 Bisacodyl 10 Mg Supp.Rect WI 08/25/25 15:47 DAILY PRN Constipation Carbidopa/Levodopa 1 tab 09/01/24 12:00 09/01/24 13:28 Carbidopa/Levodopa 10-100 Mg 1 Tab Tablet PO 09/01/25 11:59 1 tab TID@0700,1200,1700 LLOYD Administration Docusate Sodium 100 mg 08/25/24 15:48 08/31/24 08:43 Docusate 100 Mg Capsule PO 08/25/25 15:47 100 mg BID PRN Administration Constipation Docusate Sodium 283 mg 08/25/24 15:48 Docusate Enema 283 Mg/5 Ml Enema WI 08/25/25 15:47 DAILY PRN Constipation Heparin Sodium (Porcine) 5,000 unit 08/25/24 21:00 09/01/24 09:30 Heparin 5,000 Unit/Ml Vial SUBCUT 08/25/25 20:59 5,000 unit Q12HR LLOYD Administration Hydralazine HCl 25 mg 08/25/24 21:00 09/01/24 09:29 Hydralazine 25 Mg Tablet PO 08/25/25 20:59 25 mg BID LLOYD Administration Lactulose 30 gm 08/25/24 15:48 Lactulose 20 Gm/30 Ml Udc PO 08/25/25 15:47 DAILY PRN Constipation Multivitamins 1 tab 08/26/24 09:00 09/01/24 09:30 Multivitamin 1 Tab Tablet PO 08/26/25 08:59 1 tab DAILY LLOYD Administration Ondansetron HCl 4 mg 09/01/24 14:16 09/01/24 14:21 Ondansetron Odt 4 Mg Tab.Rapdis PO 09/01/25 14:15 4 mg Q6HR PRN Administration Nausea And Vomiting Pantoprazole Sodium 40 mg 08/26/24 09:00 09/01/24 09:29 Pantoprazole 40 Mg Tablet.Dr PO 08/26/25 08:59 40 mg QAM LLOYD Administration Potassium Chloride 20 meq 08/25/24 21:00 09/01/24 09:30 Potassium Chloride Er 20 Meq Tab.Er.Prt PO 08/25/25 20:59 20 meq BID LLOYD Administration Quetiapine Fumarate 12.5 mg 09/01/24 21:00 Quetiapine Fumarate 12.5 Mg Tablet PO 09/01/24 21:01 ONCE@2100 ONE Rasagiline 1 mg 08/26/24 09:00 09/01/24 09:30 Rasagiline 1 Mg Tablet PO 08/26/25 08:59 1 mg DAILY LLOYD Administration Ropinirole HCl 0.25 mg 08/25/24 22:00 08/31/24 21:33 Ropinirole 0.25 Mg Tablet PO 08/25/25 21:59 0.25 mg QHS LLOYD Administration Sennosides 17.2 mg 08/26/24 12:00 08/31/24 08:42 Sennosides 8.6 Mg Tablet PO 08/26/25 11:59 17.2 mg DAILY@12 PRN Administration If no BM in 2 days Sodium Chloride 0 ml 08/25/24 15:48 08/27/24 05:40 Sodium Chloride 0.9 % 10 Ml Syringe IV-PUSH 08/25/25 15:47 10 ml PRN PRN Administration Flush Vitamin D 125 mcg 08/26/24 09:00 09/01/24 09:30 Cholecalciferol 125 Mcg (5,000 Units) Capsule PO 08/26/25 08:59 125 mcg DAILY LLOYD Administration Zinc Gluconate 50 mg 08/26/24 09:00 09/01/24 09:29 Zinc Gluconate 50 Mg Tablet PO 08/26/25 08:59 50 mg DAILY LLOYD Administration A&P - Hospitalist Assessment/Plan (1) Metabolic encephalopathy: (2) Impaired mobility and activities of daily living: Plan Acute Pseudomonas UTI, resolved Metabolic encephalopathy Sleep/Wake cycle disturbance Impaired mobility and activities of daily living Parkinsons ?Plan of care for rehabilitation, PT/OT, DVT prophylaxis, bowel regimen per PM&Rteam. -amantadine quetiapine carbidopa levodopa rasagiline, ropinirole weight loss Cachexia -megace initiated -supplement and dietitian Chronic conditions: 1. HTN? amlodipine, hydralazine, BP improved 2. Dementia with parkinsons 3. Anxiety- alprazolam Documented By: Baylee Ho, MIGUEL 08/10 10/03 6671 Signed By: 09/01/24 4280 [facility]03-24-2025 Radiology Diagnostic study note [facility] Main [place] [address] [place] [address] CT Scan Report Signed Patient: Judith Land MR#: [id number] : 1945 Acct:[id number] Age/Sex: 79 / F ADM Date: 5 Loc: 5T Room: [address] [place] [address] Type: ADM IN Attending Dr: Pa Neil MD Copies to: Pa Neil MD~ Ordering Provider: Pa Neil MD Date of Service: 09/01/24 CT/CT head/brain wo con: Altered mental status CT BRAIN WITHOUT CONTRAST: CLINICAL HISTORY: Altered mental status. COMPARISON: CT brain 12/27/2021 TECHNIQUE: Contiguous axial unenhanced images were obtained through the brain. This CT exam was performed using one or more following dose reduction techniques: Automated exposure control, adjustmentof the mA and/or kV accordingto patient size, or use of iterative reconstruction technique. FINDINGS: There is no evidence of midline shift, intra or extra-axial fluid collection, hemorrhage or CT evidence of stroke. Cortical atrophy with chronic microvascular ischemic changes similar to the prior study. Posterior fossa appears unremarkable. Visualized intraorbital contents demonstrate no acute findings. Visualized paranasal sinuses are clear. The surrounding soft tissues are normal. CT/CT head/brain wo con IMPRESSION: NO ACUTE INTRACRANIAL ABNORMALITY. Impression dictated by: Ramsey Guerrero Jr., D.O.09/01/2024 4:29 PM Dictation Location: [place] [address] Transcribed By: [facility] 09/01/24 162 Dictated By: Ramsey Guerrero Jr, DO 09/01/24 1627 Signed By: 09/01/24 162 [facility]03-24-2025 [place] [address] Neurology Progress Note Signed Patient: Judith Land MR#: [id number] : 1945 Acct:[id number] Age/Sex: 79 / F Adm Date: 5 Loc: 5T Room: [address] [place] [address] Type: ADM IN Attending Dr: Pa Neil MD Copies to: ~ Date of Service: 09/01/2024 Subjective Subjective Narrative: I was asked to see this 79-year-old patient in consultation at the request of the physical medicineand rehabilitation service. The patient presented to the rehab unit with multifactorial functional decline in the setting of urinalysis and metabolic encephalopathy. I actually saw the patient 9 daysago in the hospital. She had been treated in the outpatient setting for UTI without resolution of infection and became agitated when she was hospitalized requiring sedative medication and a sitter. Ultimately cultures grew Pseudomonas and she was started on meropenem. She also had a right arm fracture due to a recent fall. Patient lives with her daughter in a condo and does not use an assistive device at baseline. Patient was evaluated today and was sitting up in the chair with family very concerned about the patient's confusion per the primary team's notes. To the rehab team she appeared actually more lucid today. She did not sleep well last night. In general has not slept well and would like to go home. Urine culture appears noninfectious and laboratory workup is largely unremarkable other than amild elevation in BUN and creatinine. Patient has been free of fever Repeat CT scan of the brain has been obtained. Review of Systems Review of Systems Unobtainable due to mental status Exam Physical Exam Vital Signs: Temp Pulse Resp BP Pulse Ox O2 Del Method 97.4 F L 105 H 20 152/69 H 94 L Room Air 08/31/24 14:09 09/01/24 04:35 09/01/24 04:35 09/01/24 04:35 09/01/24 04:35 09/01/24 08:00 Narrative: Narrative: GENERAL EXAM: Patient is alert and oriented x2. Patient is quite tremulous. However, she is sitting up in a chair and attempting to eat. This is certainly better than what I witnessed 9 days ago when I saw her NEURO EXAM: Cranial nerve II. Vision is intact. Pupils are equal Cranial nerve III, IV and . Extraocular muscles are intact. No nystagmus is appreciated Cranial nerve V and VII. No facial asymmetry is appreciated. Temperature and pinprick is equal bilaterally Cranial nerve VIII hearing is intact Cranial nerve IX and X speech is clear fluent. Palate elevates symmetrically Cranial nerve XI head turn side to side full range of motion. Shoulder shrug isequal bilaterally Cranial nerve XII tongue is midline full range of motion MOTOR EXAM: Strength is 5/5 throughout. No pronator drift was appreciated Muscle tone and bulk are normal SENSORY EXAM: Denies paresthesias CEREBELLAR EXAM: Alternating movements are intact. Finger to nose normal Gait not assessed Objective Vital Signs Vital Signs: Vital Signs - 24 hr 08/31/24 14:09 08/31/24 21:30 08/31/24 21:32 Temperature 97.4 F L Pulse Rate 130 H 100 Respiratory Rate 16 20 Blood Pressure 132/64 202/82 H 02 Sat by Pulse Oximetry 94 L 94 L Oxygen Delivery Method Room Air Room Air Room Air 08/31/24 22:25 09/01/24 04:35 09/01/24 08:00 Temperature Pulse Rate 95 105 H Respiratory Rate 18 20 Blood Pressure 156/76 H 152/69 H 02 Sat by Pulse Oximetry 94 L 94 L Oxygen Delivery Method Room Air Room Air Room Air Labs 08/31/24 10:57 08/31/24 10:57 Therapy Recommendations Therapy Recommendations: ST Recommendations Level of Supervision Independent Self Feeding Liquid Consistency Thin Liquids Recommendation Solid Consistency Regular Solids Recommendations Meat Consistency Whole Meats Recommendations Medication Administration Whole Pills,Give Pills with Water Dysphagia Swallow Precautions/ Sitting Upright (90 deg),Small Bites/Sips, Strategies Alternate Liquids/Solids,Pacing/Slow-Rate,Sit Upright [address] Recommended Services at Speech Therapy Discharge Assessment/Plan (1) Parkinsons disease: Qualifiers: Dyskinesia presence: without dyskinesia Fluctuating manifestations: without fluctuating manifestations Qualified Code(s): G20.A1 - Parkinson's disease without dyskinesia, without mention of fluctuations (2) Metabolic encephalopathy: (3) UTI (urinary tract infection): Qualifiers: Hematuria presence: without hematuria Urinary tract infection type: site unspecified Qualified Code(s): N39.0 - Urinary tract infection, site not specified (4) Anxiety: Plan It is my impression that the patient has metabolic encephalopathy which is likely multifactorial superimposed on her baseline neurodegenerative condition of Parkinson's. Being in her unfamiliar setting with recent infection and with small elevations in BUN and creatinine, I feel that this is led toa metabolic encephalopathy. I suspect the more recent confusion may be related to a subtle acute kidney injury. DATA REVIEW: BUN and creatinine were seen to rise from 08/26/2024 to 08/31/2024. There were noted to be 33 and 1.34 respectively yesterday. -Other labs reviewed -Patient recently treated for Pseudomonas UTI. 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 Plan: I would suggest continuation of Xanax given its extremely addictive nature I would suggest continuation of the patient's Parkinson's medication with assurance that is not given right before bedtime and is given at appropriate timings as stated I would suggest continuing to hold any muscle relaxer or gabapentin I would suggest correction of the acute kidney injury is overall I feel this is the most likely culprit, along with altered sleep-wake cycle and being out of her normal environment, for the more recent downturn in mental condition The patient previously required Haldol and higher doses of Seroquel I would suggest increasing Seroquel to 25 mg p.o. nightly this evening to hopefully allow for a more comfortable night of sleep for the patient. I would try to hold off on utilization of Haldol Neurology can follow with the patient in the outpatient setting for further recommendations. We will peripherally follow report of CT scan of the brain. Please call with any other questions or concerns Documented By: Baljeet Rao DO 5 [id number] Signed By: 09/01/24 1552 [facility]03-24-2025 Progress note Author Pa Neil [facility] Note Date/Time September 01, 2024 12: 06pm [facility] [address] [place] [address] Physiatry(Rehab) Progress Note Signed Patient: Judith Land MR#: [id number] : 1945 Acct:[id number] Age/Sex: 79 / F Adm Date: 5 Loc: Room: 9K0080-5 Type: ADM IN Attending Dr: Pa Neil MD Copies to: ~ Date of Service: 09/01/2024 Subjective Subjective Narrative: Ms. Land is a 79 year old female with a PMH of Parkinson disease, HTN, HLD, CAD, anxiety, RLS, chronic pain who presents to the rehab unit due to multifactorial functional decline in the setting of an acute UA with hospital course complicated by metabolic encephalopathy. She initially presented to the hospital due confusion for several days. She had been treated outpatient for about a month for a UTI without resolution of her infection. While hospitalized,she became acutely agitated requiring sedatives and 1:1. Gradually improved. Urine culture grew Pseudomonas for which she was started on Meropenem. OF note, the patient had a recent fall with fracture of the right arm and is in a splint. The patient lives with her daughter in a condo with 1 step to enter. Does not use an assistive device. This patient was seen and evaluated today. Family at bedside. She appears in no distress. Family had some questions today regarding patients recurrent UTIs. Gave advice including hydration, emptying bladder completely, proper hygiene. The patient is otherwise doing well. She does have a fracture of the radius and ulna on the right and family tells me that this was just recently repaired on August 12. They note that she was NWB post op but have not had follow up yet with Dr. Lyn. Interval history: Patient examined in her room today. Sitting up in chair. Family at bedside. Family very concerned that the patient is confused. To me she appears more lucidtoday. She reports that she did not sleep well last night. Only got a few hours.In general has not slept well. She wants to go home. Urine culture appears non infectious. Lab workup is mostly normal, although slight increase in Cr/BUN. No fever, chills. Review of Systems Review of Systems All other systems reviewed & are negative unless noted below or in HPI Exam Physical Exam Vital Signs: Temp Pulse Resp BP Pulse Ox O2 Del Method 97.4 F L 105 H 20 152/69 H 94 L Room Air 08/31/24 14:09 09/01/24 04:35 09/01/24 04:35 09/01/24 04:35 09/01/24 04:35 09/01/24 08:00 Narrative: NAD. Sitting up in chair. Appears less confused today. answers questions appropriately Extremities well perfused No respiratory distress RRR Abdomen soft, non distended DELMER. Tremor appreciated in all 4 extremities Speech is normal, fluent Objective Labs 08/31/24 10:57 08/31/24 10:57 Labs: Laboratory Results - last 24 hr 08/31/24 10:57 Corrected WBC 6.6 Uncorrected WBC Count 6.6 RBC 4.29 Hgb 13.6 Hct 39.8 MCV 92.9 MCH 31.7 MCHC 34.2 RDW 15.4 H Plt Count 254 MPV 10.7 Neut % (Auto) 64.8 Lymph % (Auto) 20.6 [place] % (Auto) 13.4 Eos % (Auto) 0.7 Baso % (Auto) 0.5 Nucleat RBC Rel Count 0.1 Neut # (Auto) 4.3 Lymph # (Auto) 1.4 [place] # (Auto) 0.9 H Eos # (Auto) 0.0 Baso # (Auto) 0.0 Platelet Estimate Normal Large Platelets Slight Plt Morphology Comment Normal RBC Morphology N/A Poikilocytosis Slight Anisocytosis Slight Target Cells Slight Ovalocytes Slight Acanthocytes (Spur) Slight Medications and Allergies Allergies and Active Meds: Allergies Sulfa (Sulfonamide Antibiotics) Allergy (Verified 08/20/24 19:40) Difficulty Breathing sulfamethoxazole (From Bactrim) Allergy (Verified 08/20/24 19:40) Difficulty Breathing trimethoprim (From Bactrim) Allergy (Verified 08/20/24 19:40) Difficulty Breathing Active Medications Generic Name Dose Route Start Last Admin Trade Name Freq PRN Reason Stop Dose Admin Acetaminophen 500 mg 08/25/24 15:48 Acetaminophen 500 Mg Tablet PO 08/25/25 15:47 Q4H PRN Pain Al Hydrox/Mg Hydrox/Simethicone 30 ml 08/25/24 15:48 Mag Hydrox/Al Hydrox/Simeth 30 Ml Udc PO 08/25/25 15:47 Q4H PRN Indigestion Alprazolam 1 mg 08/25/24 15:53 08/31/24 21:33 Alprazolam 0.5 Mg Tablet PO 1 mg QHS PRN Administration sleep Amantadine HCl 100 mg 08/25/24 22:00 09/01/24 09:30 Amantadine 100 Mg Capsule PO 08/25/25 21:59 100 mg TID LLOYD Administration Amlodipine Besylate 10 mg 08/27/24 09:00 09/01/24 09:30 Amlodipine 10 Mg Tablet PO 08/27/25 08:59 10 mg DAILY LLOYD Administration Ascorbic Acid 1,000 mg 08/26/24 09:00 09/01/24 09:29 Ascorbic Acid 500 Mg Tablet PO 08/26/25 08:59 1,000 mg DAILY LLOYD Administration Aspirin 81 mg 08/26/24 09:00 09/01/24 09:29 Aspirin 81 Mg Tab.Chew PO 08/26/25 08:59 81 mg DAILY LLOYD Administration Bisacodyl 10 mg 08/25/24 15:48 Bisacodyl 10 Mg Supp.Rect WI 08/25/25 15:47 DAILY PRN Constipation Carbidopa/Levodopa 1 tab 09/01/24 12:00 Carbidopa/Levodopa 10-100 Mg 1 Tab Tablet PO 09/01/25 11:59 TID@0700,1200,1700 LLOYD Docusate Sodium 100 mg 08/25/24 15:48 08/31/24 08:43 Docusate 100 Mg Capsule PO 08/25/25 15:47 100 mg BID PRN Administration Constipation Docusate Sodium 283 mg 08/25/24 15:48 Docusate Enema 283 Mg/5 Ml Enema WI 08/25/25 15:47 DAILY PRN Constipation Heparin Sodium (Porcine) 5,000 unit 08/25/24 21:00 09/01/24 09:30 Heparin 5,000 Unit/Ml Vial SUBCUT 08/25/25 20:59 5,000 unit Q12HR LLOYD Administration Hydralazine HCl 25 mg 08/25/24 21:00 09/01/24 09:29 Hydralazine 25 Mg Tablet PO 08/25/25 20:59 25 mg BID LLOYD Administration Lactulose 30 gm 08/25/24 15:48 Lactulose 20 Gm/30 Ml Udc PO 08/25/25 15:47 DAILY PRN Constipation Multivitamins 1 tab 08/26/24 09:00 09/01/24 09:30 Multivitamin 1 Tab Tablet PO 08/26/25 08:59 1 tab DAILY LLOYD Administration Pantoprazole Sodium 40 mg 08/26/24 09:00 09/01/24 09:29 Pantoprazole 40 Mg Tablet.Dr PO 08/26/25 08:59 40 mg QAM LLOYD Administration Potassium Chloride 20 meq 08/25/24 21:00 09/01/24 09:30 Potassium Chloride Er 20 Meq Tab.Er.Prt PO 08/25/25 20:59 20 meq BID LLOYD Administration Rasagiline 1 mg 08/26/24 09:00 09/01/24 09:30 Rasagiline 1 Mg Tablet PO 08/26/25 08:59 1 mg DAILY LLOYD Administration Ropinirole HCl 0.25 mg 08/25/24 22:00 08/31/24 21:33 Ropinirole 0.25 Mg Tablet PO 08/25/25 21:59 0.25 mg QHS LLOYD Administration Sennosides 17.2 mg 08/26/24 12:00 08/31/24 08:42 Sennosides 8.6 Mg Tablet PO 08/26/25 11:59 17.2 mg DAILY@12 PRN Administration If no BM in 2 days Sodium Chloride 0 ml 08/25/24 15:48 08/27/24 05:40 Sodium Chloride 0.9 % 10 Ml Syringe IV-PUSH 08/25/25 15:47 10 ml PRN PRN Administration Flush Vitamin D 125 mcg 08/26/24 09:00 09/01/24 09:30 Cholecalciferol 125 Mcg (5,000 Units) Capsule PO 08/26/25 08:59 125 mcg DAILY LLOYD Administration Zinc Gluconate 50 mg 08/26/24 09:00 09/01/24 09:29 Zinc Gluconate 50 Mg Tablet PO 08/26/25 08:59 50 mg DAILY LLOYD Administration Assessment/Plan Assessment/Plan (1) Parkinsons disease: Qualifiers: Dyskinesia presence: without dyskinesia Fluctuating manifestations: without fluctuating manifestations Qualified Code(s): G20.A1 - Parkinson's disease without dyskinesia, without mention of fluctuations (2) Metabolic encephalopathy: (3) Acute UTI: (4) HTN (hypertension): (5) Anxiety: (6) Impaired mobility and activities of daily living: Plan This is a 79-year-old female who presents to [facility] due to multifactorial functional decline in the setting of acute UTI with metabolic encephalopathy in the setting of Parkinsons Disease. She has continued impaired mobility and impaired independence with ADLs and IADLs requiring PT/OT/DRY JANITOR 5-7 days/week 3 hours/day to maximize safety and independence with functional ability and self-care. -PT to improve patient's strength, endurance, bed mobility, transfers (sit- stand), standing balance, gait quality on level surfaces and stairs, coordination and functional ADL skills. We will also work to improve patient's safety awareness during transfers and ambulation. -OT for basic ADL retraining (bathing, dressing, toileting, continence, grooming, feeding, transferring), to increase activity tolerance and functional mobility to evaluate for adaptive assistive device. We will work to improve patient's endurance and educate patient on fall prevention and energy conservation techniques-pacing strategies and proper breathing techniques duringfunctional tasks. -Patient education -Pressure ulcer prophylaxis; encourage mobilization, frequent postural changes, pressure-relief techniques -DVT prophylaxis -Encourage deep breathing exercise incentive spirometry. -Monitor bladder. Toileting schedule. Continue current bladder management, with scans as needed and CIC if needed. Start bowel care program every day to obtain continence, prevent ileus. -Maintain fall precautions -Gait and balance retraining -Provision of the necessary gait aids and functional adaptive equipment to enhance the patient's a functional taoism -Encourage deep breathing exercises and incentive spirometry -RD evaluation -Ensure adequate nutrition and hydration -Discharge planning. #. UPDATES -I will get a CT head given some continued alteration in mental status. I suspect that she is having some hospital delirium and also some alterations in sleep wake cycle which are contributing to this. -Neurology consult given her Parkinson's disease and altered mentation. -NWB RUE per patients orthopedic surgeon -Completed meropenem. -Continue home medications for chronic medical conditions -PD: Sinemet 10-100 TID, Azilect daily, Requip 0.25 mg qhs, Amantadine 100 mgTID -HTN: Norvasc 5 mg daily, Hydralazine 25 mg BID -Anxiety: Xanax 1 mg qhs PRN -Continue PT/OT/St -Hospitalist to assist with management of comorbid medical conditions #. Pain control: Tylenol PRN, #. Bowel and bladder: Continent of Bowel/bladder #. Skin: (pressure ulcer/surgical site) Pressure ulcer prophylaxis; encourage mobilization, frequent postural changes, pressure-relief techniques #. Sleep: Optimize sleep/wake cycle DVT prophylaxis: Heparin 5000 units q12hr Functional status: Impaired. Limited by pain, weakness Discharge planning: RAMAOS 1-2 weeks I spent 30 minutes for services, including [id number] encounter with the patient, discussion of the case, plan of care, and exam; and [id number] activities, such as reviewing pertinent integrity consultant documentation, recent therapynotes, laboratory and radiology studies, and discussion of case with care team including physician, nursing, caser, and therapists. More than 50 % of time was spent on patient/family counseling or coordination ofcare. Documented By: Pa Neil MD 1200 Signed By: <Electronically signed by Pa Neil MD> 09/01/24 120 [facility] [facility] Work Phone: [phone]) 495-106003-24-2025 [place] [address] Physiatry(Rehab) Progress Note Signed Patient: Judith Land MR#: [id number] : 1945 Acct:[id number] Age/Sex: 79 / F Adm Date: 5 Loc: Room: 9O1786-1 Type: ADM IN Attending Dr: Pa Neil MD Copies to: ~ Date of Service: 09/01/2024 Subjective Subjective Narrative: Ms. Land is a 79 year old female with a PMH of Parkinson disease, HTN, HLD, CAD, anxiety, RLS, chronic pain who presents to the rehab unit due to multifactorial functional decline in the setting of an acute UA with hospital course complicated by metabolic encephalopathy. She initially presented to the hospital due confusion for several days. She had been treated outpatient for about a month for a UTI without resolution of her infection. While hospitalized,she became acutely agitated requiring sedatives and 1:1. Gradually improved. Urine culture grew Pseudomonas for which she was started onMeropenem. OF note, the patient had a recent fall with fracture of the right arm and is in a splint. The patient lives with her daughter in a condo with 1 step to enter. Does not use an assistive device. This patient was seen and evaluated today. Family at bedside. She appears in no distress. Family had some questions today regarding patients recurrent UTIs. Gave advice including hydration, emptying bladder completely, proper hygiene. The patient is otherwise doing well. She does have a fracture ofthe radius and ulna on the right and family tells me that this was just recently repaired on August 12. They note that she was NWB post op but have not had follow up yet with Dr. Lyn. Interval history: Patient examined in her room today. Sitting up in chair. Family at bedside. Family very concerned that the patient is confused. To me she appears more lucidtoday. She reports that she did not sleep well last night. Only got a few hours.In general has not slept well. She wants to go home. Urine culture appears non infectious. Lab workup is mostly normal, although slight increase in Cr/BUN. No fever, chills. Review of Systems Review of Systems All other systems reviewed & are negative unless noted below or in HPI Exam Physical Exam Vital Signs: Temp Pulse Resp BP Pulse Ox O2 Del Method 97.4 F L 105 H 20 152/69 H 94 L Room Air 08/31/24 14:09 09/01/24 04:35 09/01/24 04:35 09/01/24 04:35 09/01/24 04:35 09/01/24 08:00 Narrative: NAD. Sitting up in chair. Appears less confused today. answers questions appropriately Extremities well perfused No respiratory distress RRR Abdomen soft, non distended DELMER. Tremor appreciated in all 4 extremities Speech is normal, fluent Objective Labs 08/31/24 10:57 08/31/24 10:57 Labs: Laboratory Results - last 24 hr 08/31/24 10:57 Corrected WBC 6.6 Uncorrected WBC Count 6.6 RBC 4.29 Hgb 13.6 Hct 39.8 MCV 92.9 MCH 31.7 MCHC 34.2 RDW 15.4 H Plt Count 254 MPV 10.7 Neut % (Auto) 64.8 Lymph % (Auto) 20.6 [place] % (Auto) 13.4 Eos % (Auto) 0.7 Baso % (Auto) 0.5 Nucleat RBC Rel Count 0.1 Neut # (Auto) 4.3 Lymph # (Auto) 1.4 [place] # (Auto) 0.9 H Eos # (Auto) 0.0 Baso # (Auto) 0.0 Platelet Estimate Normal Large Platelets Slight Plt Morphology Comment Normal RBC Morphology N/A Poikilocytosis Slight Anisocytosis Slight Target Cells Slight Ovalocytes Slight Acanthocytes (Spur) Slight Medications and Allergies Allergies and Active Meds: Allergies Sulfa (Sulfonamide Antibiotics) Allergy (Verified 08/20/24 19:40) Difficulty Breathing sulfamethoxazole (From Bactrim) Allergy (Verified 08/20/24 19:40) Difficulty Breathing trimethoprim (From Bactrim) Allergy (Verified 08/20/24 19:40) Difficulty Breathing Active Medications Generic Name Dose Route Start Last Admin Trade Name Freq PRN Reason Stop Dose Admin Acetaminophen 500 mg 08/25/24 15:48 Acetaminophen 500 Mg Tablet PO 08/25/25 15:47 Q4H PRN Pain Al Hydrox/Mg Hydrox/Simethicone 30 ml 08/25/24 15:48 Mag Hydrox/Al Hydrox/Simeth 30 Ml Udc PO 08/25/25 15:47 Q4H PRN Indigestion Alprazolam 1 mg 08/25/24 15:53 08/31/24 21:33 Alprazolam 0.5 Mg Tablet PO 1 mg QHS PRN Administration sleep Amantadine HCl 100 mg 08/25/24 22:00 09/01/24 09:30 Amantadine 100 Mg Capsule PO 08/25/25 21:59 100 mg TID LLOYD Administration Amlodipine Besylate 10 mg 08/27/24 09:00 09/01/24 09:30 Amlodipine 10 Mg Tablet PO 08/27/25 08:59 10 mg DAILY LLOYD Administration Ascorbic Acid 1,000 mg 08/26/24 09:00 09/01/24 09:29 Ascorbic Acid 500 Mg Tablet PO 08/26/25 08:59 1,000 mg DAILY LLOYD Administration Aspirin 81 mg 08/26/24 09:00 09/01/24 09:29 Aspirin 81 Mg Tab.Chew PO 08/26/25 08:59 81 mg DAILY LLOYD Administration Bisacodyl 10 mg 08/25/24 15:48 Bisacodyl 10 Mg Supp.Rect WI 08/25/25 15:47 DAILY PRN Constipation Carbidopa/Levodopa 1 tab 09/01/24 12:00 Carbidopa/Levodopa 10-100 Mg 1 Tab Tablet PO 09/01/25 11:59 TID@0700,1200,1700 LLOYD Docusate Sodium 100 mg 08/25/24 15:48 08/31/24 08:43 Docusate 100 Mg Capsule PO 08/25/25 15:47 100 mg BID PRN Administration Constipation Docusate Sodium 283 mg 08/25/24 15:48 Docusate Enema 283 Mg/5 Ml Enema WI 08/25/25 15:47 DAILY PRN Constipation Heparin Sodium (Porcine) 5,000 unit 08/25/24 21:00 09/01/24 09:30 Heparin 5,000 Unit/Ml Vial SUBCUT 08/25/25 20:59 5,000 unit Q12HR LLOYD Administration Hydralazine HCl 25 mg 08/25/24 21:00 09/01/24 09:29 Hydralazine 25 Mg Tablet PO 08/25/25 20:59 25 mg BID LLOYD Administration Lactulose 30 gm 08/25/24 15:48 Lactulose 20 Gm/30 Ml Udc PO 08/25/25 15:47 DAILY PRN Constipation Multivitamins 1 tab 08/26/24 09:00 09/01/24 09:30 Multivitamin 1 Tab Tablet PO 08/26/25 08:59 1 tab DAILY LLOYD Administration Pantoprazole Sodium 40 mg 08/26/24 09:00 09/01/24 09:29 Pantoprazole 40 Mg Tablet.Dr PO 08/26/25 08:59 40 mg QAM LLOYD Administration Potassium Chloride 20 meq 08/25/24 21:00 09/01/24 09:30 Potassium Chloride Er 20 Meq Tab.Er.Prt PO 08/25/25 20:59 20 meq BID LLOYD Administration Rasagiline 1 mg 08/26/24 09:00 09/01/24 09:30 Rasagiline 1 Mg Tablet PO 08/26/25 08:59 1 mg DAILY LLOYD Administration Ropinirole HCl 0.25 mg 08/25/24 22:00 08/31/24 21:33 Ropinirole 0.25 Mg Tablet PO 08/25/25 21:59 0.25 mg QHS LLOYD Administration Sennosides 17.2 mg 08/26/24 12:00 08/31/24 08:42 Sennosides 8.6 Mg Tablet PO 08/26/25 11:59 17.2 mg DAILY@12 PRN Administration If no BM in 2 days Sodium Chloride 0 ml 08/25/24 15:48 08/27/24 05:40 Sodium Chloride 0.9 % 10 Ml Syringe IV-PUSH 08/25/25 15:47 10 ml PRN PRN Administration Flush Vitamin D 125 mcg 08/26/24 09:00 09/01/24 09:30 Cholecalciferol 125 Mcg (5,000 Units) Capsule PO 08/26/25 08:59 125 mcg DAILY LLOYD Administration Zinc Gluconate 50 mg 08/26/24 09:00 03/24/25 09:29 Zinc Gluconate 50 Mg Tablet PO 08/26/25 08:59 50 mg DAILY LLOYD Administration Assessment/Plan Assessment/Plan (1) Parkinsons disease: Qualifiers: Dyskinesia presence: without dyskinesia Fluctuating manifestations: without fluctuating manifestations Qualified Code(s): G20.A1 - Parkinson's disease without dyskinesia, without mention of fluctuations (2) Metabolic encephalopathy: (3) Acute UTI: (4) HTN (hypertension): (5) Anxiety: (6) Impaired mobility and activities of daily living: Plan This is a 79-year-old female who presents to [facility] IRF due to multifactorial functional decline in the setting of acute UTI with metabolic encephalopathy in the setting ofParkinsons Disease. She has continued impaired mobility and impaired independence with ADLs and IADLs requiring PT/OT/DRY JANITOR 5-7 days/week 3 hours/day to maximize safety and independence with functionalability and self-care. -PT to improve patient's strength, endurance, bed mobility, transfers (sit- stand), standing balance, gait quality on level surfaces and stairs, coordination and functional ADL skills. We will also work to improve patient's safety awareness during transfers and ambulation. -OT for basic ADL retraining (bathing, dressing, toileting, continence, grooming, feeding, transferring), to increase activity tolerance and functional mobility to evaluate for adaptive assistive device. We will work to improve patient's endurance and educate patient on fall prevention and energy co nservation techniques-pacing strategies and proper breathing techniques duringfunctional tasks. -Patient education -Pressure ulcer prophylaxis; encourage mobilization, frequent postural changes, pressure-relief techniques -DVT prophylaxis -Encourage deep breathing exercise incentive spirometry. -Monitor bladder. Toileting schedule. Continue current bladder management, with scans as needed andCIC if needed. Start bowel care program every day to obtain continence, prevent ileus. -Maintain fall precautions -Gait and balance retraining -Provision of the necessary gait aids and functional adaptive equipment to enhance the patient's a functional taoism -Encourage deep breathing exercises and incentive spirometry -RD evaluation -Ensure adequate nutrition and hydration -Discharge planning. #. UPDATES -I will get a CT head given some continued alteration in mental status. I suspect that she is having some hospital delirium and also some alterations in sleep wake cycle which are contributing to this. -Neurology consult given her Parkinson's disease and altered mentation. -NWB RUE per patients orthopedic surgeon -Completed meropenem. -Continue home medications for chronic medical conditions -PD: Sinemet 10-100 TID, Azilect daily, Requip 0.25 mg qhs, Amantadine 100 mgTID -HTN: Norvasc 5 mg daily, Hydralazine 25 mg BID -Anxiety: Xanax 1 mg qhs PRN -Continue PT/OT/St -Hospitalist to assist with management of comorbid medical conditions #. Pain control: Tylenol PRN, #. Bowel and bladder: Continent of Bowel/bladder #. Skin: (pressure ulcer/surgical site) Pressure ulcer prophylaxis; encourage mobilization, frequent postural changes, pressure-relief techniques #. Sleep: Optimize sleep/wake cycle DVT prophylaxis: Heparin 5000 units q12hr Functional status: Impaired. Limited by pain, weakness Discharge planning: ELOS 1-2 weeks I spent 30 minutes for services, including [id number] encounter with the patient, discussion of the case, plan of care, and exam; and [id number] activities, such as reviewing pertinent integrity consultant documentation, recent therapynotes, laboratory and radiology studies, and discussion of case with care team including physician, nursing, caser, and therapists. More than 50 % of time was spent on patient/family counseling or coordination ofcare. Documented By: Pa Neil MD 1200 Signed By: 09/01/24 1206 [facility]03-24-2025 Progress note Author Pa Neil [facility] Note Date/Time August 31, 2024 10: 13pm [facility] [address] [place] [address] Physiatry(Rehab) Progress Note Signed Patient: Judith Land MR#: [id number] : 1945 Acct:[id number] Age/Sex: 79 / F Adm Date: 5 Loc: Room: 3F2894-6 Type: ADM IN Attending Dr: Pa Neil MD Copies to: ~ Date of Service: 08/31/2024 Subjective Subjective Narrative: Ms. Land is a 79 year old female with a PMH of Parkinson disease, HTN, HLD, CAD, anxiety, RLS, chronic pain who presents to the rehab unit due to multifactorial functional decline in the setting of an acute UA with hospital course complicated by metabolic encephalopathy. She initially presented to the hospital due confusion for several days. She had been treated outpatient for about a month for a UTI without resolution of her infection. While hospitalized,she became acutely agitated requiring sedatives and 1:1. Gradually improved. Urine culture grew Pseudomonas for which she was started on Meropenem. OF note, the patient had a recent fall with fracture of the right arm and is in a splint. The patient lives with her daughter in a condo with 1 step to enter. Does not use an assistive device. This patient was seen and evaluated today. Family at bedside. She appears in no distress. Family had some questions today regarding patients recurrent UTIs. Gave advice including hydration, emptying bladder completely, proper hygiene. The patient is otherwise doing well. She does have a fracture of the radius and ulna on the right and family tells me that this was just recently repaired on August 12. They note that she was NWB post op but have not had follow up yet with Dr. Lyn. Interval history: Patient examined in her room while lying in bed. She is confused. Family at bedside. Pending Urine culture at time of note. Family with concern about patients cognition. Review of Systems Review of Systems All other systems reviewed & are negative unless noted below or in HPI Exam Physical Exam Vital Signs: Temp Pulse Resp BP Pulse Ox O2 Del Method 97.4 F L 100 20 202/82 H 94 L Room Air 08/31/24 14:09 08/31/24 21:32 08/31/24 21:32 08/31/24 21:32 08/31/24 21:32 08/31/24 21:32 Narrative: NAD. Lying in bed. Confused Extremities well perfused No respiratory distress RRR Abdomen soft, non distended DELMER. Tremor appreciated in all 4 extremities Speech is normal, fluent Objective Labs 08/31/24 10:57 08/31/24 10:57 Labs: Laboratory Results - last 24 hr 08/31/24 10:57 Corrected WBC 6.6 Uncorrected WBC Count 6.6 RBC 4.29 Hgb 13.6 Hct 39.8 MCV 92.9 MCH 31.7 MCHC 34.2 RDW 15.4 H Plt Count 254 MPV 10.7 Neut % (Auto) 64.8 Lymph % (Auto) 20.6 [place] % (Auto) 13.4 Eos % (Auto) 0.7 Baso % (Auto) 0.5 Nucleat RBC Rel Count 0.1 Neut # (Auto) 4.3 Lymph # (Auto) 1.4 [place] # (Auto) 0.9 H Eos # (Auto) 0.0 Baso # (Auto) 0.0 Platelet Estimate Normal Large Platelets Slight Plt Morphology Comment Normal RBC Morphology N/A Poikilocytosis Slight Anisocytosis Slight Target Cells Slight Ovalocytes Slight Acanthocytes (Spur) Slight PHA Creatinine Clear 26.11 Sodium 144 Potassium 4.9 Chloride 112 H Carbon Dioxide 23.9 Anion Gap 13.0 BUN 33 H Creatinine 1.34 H Est GFR (CKD-EPI) 40.587 Glucose 94 Calcium 11.6 H Medications and Allergies Allergies and Active Meds: Allergies Sulfa (Sulfonamide Antibiotics) Allergy (Verified 08/20/24 19:40) Difficulty Breathing sulfamethoxazole (From Bactrim) Allergy (Verified 08/20/24 19:40) Difficulty Breathing trimethoprim (From Bactrim) Allergy (Verified 08/20/24 19:40) Difficulty Breathing Active Medications Generic Name Dose Route Start Last Admin Trade Name Freq PRN Reason Stop Dose Admin Acetaminophen 500 mg 08/25/24 15:48 Acetaminophen 500 Mg Tablet PO 08/25/25 15:47 Q4H PRN Pain Al Hydrox/Mg Hydrox/Simethicone 30 ml 08/25/24 15:48 Mag Hydrox/Al Hydrox/Simeth 30 Ml Udc PO 08/25/25 15:47 Q4H PRN Indigestion Alprazolam 1 mg 08/25/24 15:53 08/31/24 21:33 Alprazolam 0.5 Mg Tablet PO 1 mg QHS PRN Administration sleep Amantadine HCl 100 mg 08/25/24 22:00 08/31/24 21:33 Amantadine 100 Mg Capsule PO 08/25/25 21:59 100 mg TID LLOYD Administration Amlodipine Besylate 10 mg 08/27/24 09:00 08/31/24 08:43 Amlodipine 10 Mg Tablet PO 08/27/25 08:59 10 mg DAILY LLOYD Administration Ascorbic Acid 1,000 mg 08/26/24 09:00 08/31/24 08:43 Ascorbic Acid 500 Mg Tablet PO 08/26/25 08:59 1,000 mg DAILY LLOYD Administration Aspirin 81 mg 08/26/24 09:00 08/31/24 08:40 Aspirin 81 Mg Tab.Chew PO 08/26/25 08:59 81 mg DAILY LLOYD Administration Bisacodyl 10 mg 08/25/24 15:48 Bisacodyl 10 Mg Supp.Rect WI 08/25/25 15:47 DAILY PRN Constipation Carbidopa/Levodopa 1 tab 08/25/24 22:00 08/31/24 21:33 Carbidopa/Levodopa 10-100 Mg 1 Tab Tablet PO 08/25/25 21:59 1 tab TID LLOYD Administration Docusate Sodium 100 mg 08/25/24 15:48 08/31/24 08:43 Docusate 100 Mg Capsule PO 08/25/25 15:47 100 mg BID PRN Administration Constipation Docusate Sodium 283 mg 08/25/24 15:48 Docusate Enema 283 Mg/5 Ml Enema WI 08/25/25 15:47 DAILY PRN Constipation Heparin Sodium (Porcine) 5,000 unit 08/25/24 21:00 08/31/24 21:34 Heparin 5,000 Unit/Ml Vial SUBCUT 08/25/25 20:59 5,000 unit Q12HR LLOYD Administration Hydralazine HCl 25 mg 08/25/24 21:00 08/31/24 21:33 Hydralazine 25 Mg Tablet PO 08/25/25 20:59 25 mg BID LLOYD Administration Lactulose 30 gm 08/25/24 15:48 Lactulose 20 Gm/30 Ml Udc PO 08/25/25 15:47 DAILY PRN Constipation Multivitamins 1 tab 08/26/24 09:00 08/31/24 08:40 Multivitamin 1 Tab Tablet PO 08/26/25 08:59 1 tab DAILY LLOYD Administration Nitrofurantoin Macrocrystals 100 mg 08/31/24 17:00 08/31/24 17:00 Nitrofurantoin Monohyd/M-Cryst 100 Mg Capsule PO 09/05/24 16:59 100 mg BID.WITH.MEALS LLOYD Administration Pantoprazole Sodium 40 mg 08/26/24 09:00 08/31/24 08:39 Pantoprazole 40 Mg Tablet.Dr PO 08/26/25 08:59 40 mg QAM LLOYD Administration Potassium Chloride 20 meq 08/25/24 21:00 08/31/24 21:33 Potassium Chloride Er 20 Meq Tab.Er.Prt PO 08/25/25 20:59 20 meq BID LLOYD Administration Rasagiline 1 mg 08/26/24 09:00 08/31/24 08:39 Rasagiline 1 Mg Tablet PO 08/26/25 08:59 1 mg DAILY LLOYD Administration Ropinirole HCl 0.25 mg 08/25/24 22:00 08/31/24 21:33 Ropinirole 0.25 Mg Tablet PO 08/25/25 21:59 0.25 mg QHS LLOYD Administration Sennosides 17.2 mg 08/26/24 12:00 08/31/24 08:42 Sennosides 8.6 Mg Tablet PO 08/26/25 11:59 17.2 mg DAILY@12 PRN Administration If no BM in 2 days Sodium Chloride 0 ml 08/25/24 15:48 08/27/24 05:40 Sodium Chloride 0.9 % 10 Ml Syringe IV-PUSH 08/25/25 15:47 10 ml PRN PRN Administration Flush Vitamin D 125 mcg 08/26/24 09:00 08/31/24 08:40 Cholecalciferol 125 Mcg (5,000 Units) Capsule PO 08/26/25 08:59 125 mcg DAILY LLOYD Administration Zinc Gluconate 50 mg 08/26/24 09:00 08/31/24 08:42 Zinc Gluconate 50 Mg Tablet PO 08/26/25 08:59 50 mg DAILY LLOYD Administration Assessment/Plan Assessment/Plan (1) Parkinsons disease: Qualifiers: Dyskinesia presence: without dyskinesia Fluctuating manifestations: without fluctuating manifestations Qualified Code(s): G20.A1 - Parkinson's disease without dyskinesia, without mention of fluctuations (2) Metabolic encephalopathy: (3) Acute UTI: (4) HTN (hypertension): (5) Anxiety: (6) Impaired mobility and activities of daily living: Plan This is a 79-year-old female who presents to [facility] IR[facility] due to multifactorial functional decline in the setting of acute UTI with metabolic encephalopathy in the setting of Parkinsons Disease. She has continued impaired mobility and impaired independence with ADLs and IADLs requiring PT/OT/DRY JANITOR 5-7 days/week 3 hours/day to maximize safety and independence with functional ability and self-care. -PT to improve patient's strength, endurance, bed mobility, transfers (sit- stand), standing balance, gait quality on level surfaces and stairs, coordination and functional ADL skills. We will also work to improve patient's safety awareness during transfers and ambulation. -OT for basic ADL retraining (bathing, dressing, toileting, continence, grooming, feeding, transferring), to increase activity tolerance and functional mobility to evaluate for adaptive assistive device. We will work to improve patient's endurance and educate patient on fall prevention and energy conservation techniques-pacing strategies and proper breathing techniques duringfunctional tasks. -Patient education -Pressure ulcer prophylaxis; encourage mobilization, frequent postural changes, pressure-relief techniques -DVT prophylaxis -Encourage deep breathing exercise incentive spirometry. -Monitor bladder. Toileting schedule. Continue current bladder management, with scans as needed and CIC if needed. Start bowel care program every day to obtain continence, prevent ileus. -Maintain fall precautions -Gait and balance retraining -Provision of the necessary gait aids and functional adaptive equipment to enhance the patient's a functional taoism -Encourage deep breathing exercises and incentive spirometry -RD evaluation -Ensure adequate nutrition and hydration -Discharge planning. #. UPDATES -Urine culture demonstrating mixed bacterial skin contaminants -I will stop Seroquel. Possible that dopamine depleting effects are worsening symptoms -Labs appear stable -NWB RUE per patients orthopedic surgeon -Completed meropenem. -Continue home medications for chronic medical conditions -PD: Sinemet 10-100 TID, Azilect daily, Requip 0.25 mg qhs, Amantadine 100 mgTID -HTN: Norvasc 5 mg daily, Hydralazine 25 mg BID -Anxiety: Xanax 1 mg qhs PRN -Continue PT/OT/St -Hospitalist to assist with management of comorbid medical conditions #. Pain control: Tylenol PRN, #. Bowel and bladder: Continent of Bowel/bladder #. Skin: (pressure ulcer/surgical site) Pressure ulcer prophylaxis; encourage mobilization, frequent postural changes, pressure-relief techniques #. Sleep: Optimize sleep/wake cycle DVT prophylaxis: Heparin 5000 units q12hr Functional status: Impaired. Limited by pain, weakness Discharge planning: ELOS 1-2 weeks I spent 30 minutes for services, including [id number] encounter with the patient, discussion of the case, plan of care, and exam; and ocfeild-hd-stdy activities, such as reviewing pertinent integrity consultant documentation, recent therapynotes, laboratory and radiology studies, and discussion of case with care team including physician, nursing, caser, and therapists. More than 50 % of time was spent on patient/family counseling or coordination ofcare. Documented By: Pa Neil MD [id number] Signed By: <Electronically signed by Pa Neil MD> 08/31/242212 [facility] Work Phone: [phone]) 869-809103-23-2025 [place] [address] Physiatry(Rehab) Progress Note Signed Patient: Judith Land MR#: [id number] : 1945 Acct:[id number] Age/Sex: 79 / F Adm Date: 5 Loc: Room: [address] [place] [address] Type: ADM IN Attending Dr: Pa Neil MD Copies to: ~ Date of Service: 08/31/2024 Subjective Subjective Narrative: Ms. Land is a 79 year old female with a PMH of Parkinson disease, HTN, HLD, CAD, anxiety, RLS, chronic pain who presents to the rehab unit due to multifactorial functional decline in the setting of an acute UA with hospital course complicated by metabolic encephalopathy. She initially presented to the hospital due confusion for several days. She had been treated outpatient for about a month for a UTI without resolution of her infection. While hospitalized,she became acutely agitated requiring sedatives and 1:1. Gradually improved. Urine culture grew Pseudomonas for which she was started onMeropenem. OF note, the patient had a recent fall with fracture of the right arm and is in a splint. The patient lives with her daughter in a condo with 1 step to enter. Does not use an assistive device. This patient was seen and evaluated today. Family at bedside. She appears in no distress. Family had some questions today regarding patients recurrent UTIs. Gave advice including hydration, emptying bladder completely, proper hygiene. The patient is otherwise doing well. She does have a fracture ofthe radius and ulna on the right and family tells me that this was just recently repaired on August 12. They note that she was NWB post op but have not had follow up yet with Dr. Lyn. Interval history: Patient examined in her room while lying in bed. She is confused. Family at bedside. Pending Urine culture at time of note. Family with concern about patients cognition. Review of Systems Review of Systems All other systems reviewed & are negative unless noted below or in HPI Exam Physical Exam Vital Signs: Temp Pulse Resp BP Pulse Ox O2 Del Method 97.4 F L 100 20 202/82 H 94 L Room Air 08/31/24 14:09 08/31/24 21:32 08/31/24 21:32 08/31/24 21:32 08/31/24 21:32 08/31/24 21:32 Narrative: NAD. Lying in bed. Confused Extremities well perfused No respiratory distress RRR Abdomen soft, non distended DELMER. Tremor appreciated in all 4 extremities Speech is normal, fluent Objective Labs 08/31/24 10:57 08/31/24 10:57 Labs: Laboratory Results - last 24 hr 08/31/24 10:57 Corrected WBC 6.6 Uncorrected WBC Count 6.6 RBC 4.29 Hgb 13.6 Hct 39.8 MCV 92.9 MCH 31.7 MCHC 34.2 RDW 15.4 H Plt Count 254 MPV 10.7 Neut % (Auto) 64.8 Lymph % (Auto) 20.6 [place] % (Auto) 13.4 Eos % (Auto) 0.7 Baso % (Auto) 0.5 Nucleat RBC Rel Count 0.1 Neut # (Auto) 4.3 Lymph # (Auto) 1.4 [place] # (Auto) 0.9 H Eos # (Auto) 0.0 Baso # (Auto) 0.0 Platelet Estimate Normal Large Platelets Slight Plt Morphology Comment Normal RBC Morphology N/A Poikilocytosis Slight Anisocytosis Slight Target Cells Slight Ovalocytes Slight Acanthocytes (Spur) Slight PHA Creatinine Clear 26.11 Sodium 144 Potassium 4.9 Chloride 112 H Carbon Dioxide 23.9 Anion Gap 13.0 BUN 33 H Creatinine 1.34 H Est GFR (CKD-EPI) 40.587 Glucose 94 Calcium 11.6 H Medications and Allergies Allergies and Active Meds: Allergies Sulfa (Sulfonamide Antibiotics) Allergy (Verified 08/20/24 19:40) Difficulty Breathing sulfamethoxazole (From Bactrim) Allergy (Verified 08/20/24 19:40) Difficulty Breathing trimethoprim (From Bactrim) Allergy (Verified 08/20/24 19:40) Difficulty Breathing Active Medications Generic Name Dose Route Start Last Admin Trade Name Erick PRN Reason Stop Dose Admin Acetaminophen 500 mg 08/25/24 15:48 Acetaminophen 500 Mg Tablet PO 08/25/25 15:47 Q4H PRN Pain Al Hydrox/Mg Hydrox/Simethicone 30 ml 08/25/24 15:48 Mag Hydrox/Al Hydrox/Simeth 30 Ml Udc PO 08/25/25 15:47 Q4H PRN Indigestion Alprazolam 1 mg 08/25/24 15:53 08/31/24 21:33 Alprazolam 0.5 Mg Tablet PO 1 mg QHS PRN Administration sleep Amantadine HCl 100 mg 08/25/24 22:00 08/31/24 21:33 Amantadine 100 Mg Capsule PO 08/25/25 21:59 100 mg TID LLOYD Administration Amlodipine Besylate 10 mg 08/27/24 09:00 08/31/24 08:43 Amlodipine 10 Mg Tablet PO 08/27/25 08:59 10 mg DAILY LLOYD Administration Ascorbic Acid 1,000 mg 08/26/24 09:00 08/31/24 08:43 Ascorbic Acid 500 Mg Tablet PO 08/26/25 08:59 1,000 mg DAILY LLOYD Administration Aspirin 81 mg 08/26/24 09:00 08/31/24 08:40 Aspirin 81 Mg Tab.Chew PO 08/26/25 08:59 81 mg DAILY LLOYD Administration Bisacodyl 10 mg 08/25/24 15:48 Bisacodyl 10 Mg Supp.Rect WI 08/25/25 15:47 DAILY PRN Constipation Carbidopa/Levodopa 1 tab 08/25/24 22:00 08/31/24 21:33 Carbidopa/Levodopa 10-100 Mg 1 Tab Tablet PO 08/25/25 21:59 1 tab TID LLOYD Administration Docusate Sodium 100 mg 08/25/24 15:48 08/31/24 08:43 Docusate 100 Mg Capsule PO 08/25/25 15:47 100 mg BID PRN Administration Constipation Docusate Sodium 283 mg 08/25/24 15:48 Docusate Enema 283 Mg/5 Ml Enema WI 08/25/25 15:47 DAILY PRN Constipation Heparin Sodium (Porcine) 5,000 unit 08/25/24 21:00 08/31/24 21:34 Heparin 5,000 Unit/Ml Vial SUBCUT 08/25/25 20:59 5,000 unit Q12HR LLOYD Administration Hydralazine HCl 25 mg 08/25/24 21:00 08/31/24 21:33 Hydralazine 25 Mg Tablet PO 08/25/25 20:59 25 mg BID LLOYD Administration Lactulose 30 gm 08/25/24 15:48 Lactulose 20 Gm/30 Ml Udc PO 08/25/25 15:47 DAILY PRN Constipation Multivitamins 1 tab 08/26/24 09:00 08/31/24 08:40 Multivitamin 1 Tab Tablet PO 08/26/25 08:59 1 tab DAILY LLOYD Administration Nitrofurantoin Macrocrystals 100 mg 08/31/24 17:00 08/31/24 17:00 Nitrofurantoin Monohyd/M-Cryst 100 Mg Capsule PO 09/05/24 16:59 100 mg BID.WITH.MEALS LLOYD Administration Pantoprazole Sodium 40 mg 08/26/24 09:00 08/31/24 08:39 Pantoprazole 40 Mg Tablet.Dr PO 08/26/25 08:59 40 mg QAM LLOYD Administration Potassium Chloride 20 meq 08/25/24 21:00 08/31/24 21:33 Potassium Chloride Er 20 Meq Tab.Er.Prt PO 08/25/25 20:59 20 meq BID LLOYD Administration Rasagiline 1 mg 08/26/24 09:00 08/31/24 08:39 Rasagiline 1 Mg Tablet PO 08/26/25 08:59 1 mg DAILY LLOYD Administration Ropinirole HCl 0.25 mg 08/25/24 22:00 08/31/24 21:33 Ropinirole 0.25 Mg Tablet PO 08/25/25 21:59 0.25 mg QHS LLOYD Administration Sennosides 17.2 mg 08/26/24 12:00 08/31/24 08:42 Sennosides 8.6 Mg Tablet PO 08/26/25 11:59 17.2 mg DAILY@12 PRN Administration If no BM in 2 days Sodium Chloride 0 ml 08/25/24 15:48 08/27/24 05:40 Sodium Chloride 0.9 % 10 Ml Syringe IV-PUSH 08/25/25 15:47 10 ml PRN PRN Administration Flush Vitamin D 125 mcg 08/26/24 09:00 08/31/24 08:40 Cholecalciferol 125 Mcg (5,000 Units) Capsule PO 08/26/25 08:59 125 mcg DAILY LLOYD Administration Zinc Gluconate 50 mg 08/26/24 09:00 08/31/24 08:42 Zinc Gluconate 50 Mg Tablet PO 08/26/25 08:59 50 mg DAILY LLOYD Administration Assessment/Plan Assessment/Plan (1) Parkinsons disease: Qualifiers: Dyskinesia presence: without dyskinesia Fluctuating manifestations: without fluctuating manifestations Qualified Code(s): G20.A1 - Parkinson's disease without dyskinesia, without mention of fluctuations (2) Metabolic encephalopathy: (3) Acute UTI: (4) HTN (hypertension): (5) Anxiety: (6) Impaired mobility and activities of daily living: Plan This is a 79-year-old female who presents to [facility] IRF due to multifactorial functional decline in the setting of acute UTI with metabolic encephalopathy in the setting ofParkinsons Disease. She has continued impaired mobility and impaired independence with ADLs and IADLs requiring PT/OT/DRY JANITOR 5-7 days/week 3 hours/day to maximize safety and independence with functionalability and self-care. -PT to improve patient's strength, endurance, bed mobility, transfers (sit- stand), standing balance, gait quality on level surfaces and stairs, coordination and functional ADL skills. We will also work to improve patient's safety awareness during transfers and ambulation. -OT for basic ADL retraining (bathing, dressing, toileting, continence, grooming, feeding, transferring), to increase activity tolerance and functional mobility to evaluate for adaptive assistive device. We will work to improve patient's endurance and educate patient on fall prevention and energy co nservation techniques-pacing strategies and proper breathing techniques duringfunctional tasks. -Patient education -Pressure ulcer prophylaxis; encourage mobilization, frequent postural changes, pressure-relief techniques -DVT prophylaxis -Encourage deep breathing exercise incentive spirometry. -Monitor bladder. Toileting schedule. Continue current bladder management, with scans as needed andCIC if needed. Start bowel care program every day to obtain continence, prevent ileus. -Maintain fall precautions -Gait and balance retraining -Provision of the necessary gait aids and functional adaptive equipment to enhance the patient's a functional taoism -Encourage deep breathing exercises and incentive spirometry -RD evaluation -Ensure adequate nutrition and hydration -Discharge planning. #. UPDATES -Urine culture demonstrating mixed bacterial skin contaminants -I will stop Seroquel. Possible that dopamine depleting effects are worsening symptoms -Labs appear stable -NWB RUE per patients orthopedic surgeon -Completed meropenem. -Continue home medications for chronic medical conditions -PD: Sinemet 10-100 TID, Azilect daily, Requip 0.25 mg qhs, Amantadine 100 mgTID -HTN: Norvasc 5 mg daily, Hydralazine 25 mg BID -Anxiety: Xanax 1 mg qhs PRN -Continue PT/OT/St -Hospitalist to assist with management of comorbid medical conditions #. Pain control: Tylenol PRN, #. Bowel and bladder: Continent of Bowel/bladder #. Skin: (pressure ulcer/surgical site) Pressure ulcer prophylaxis; encourage mobilization, frequent postural changes, pressure-relief techniques #. Sleep: Optimize sleep/wake cycle DVT prophylaxis: Heparin 5000 units q12hr Functional status: Impaired. Limited by pain, weakness Discharge planning: ELOS 1-2 weeks I spent 30 minutes for services, including [id number] encounter with the patient, discussion of the case, plan of care, and exam; and [id number] activities, such as reviewing pertinent integrity consultant documentation, recent therapynotes, laboratory and radiology studies, and discussion of case with care team including physician, nursing, caser, and therapists. More than 50 % of time was spent on patient/family counseling or coordination ofcare. Documented By: Pa Neil MD [id number] Signed By: 08/31/242212 [facility]03-22-2025 Progress note Author Didi Navarro [facility] Note Date/Time August 29, 2024 11: 00pm [facility] [address] [place] [address] Physiatry(Rehab) Progress Note Signed Patient: Judith Land MR#: [id number] : 1945 Acct:[id number] Age/Sex: 79 / F Adm Date: 5 Loc: Room: [address] [place] [address] Type: ADM IN Attending Dr: Pa Neil MD Copies to: ~ Date of Service: 08/29/2024 Subjective Subjective Narrative: Ms. Land is a 79 year old female with a PMH of Parkinson disease, HTN, HLD, CAD, anxiety, RLS, chronic pain who presents to the rehab unit due to multifactorial functional decline in the setting of an acute UA with hospital course complicated by metabolic encephalopathy. She initially presented to the hospital due confusion for several days. She had been treated outpatient for about a month for a UTI without resolution of her infection. While hospitalized,she became acutely agitated requiring sedatives and 1:1. Gradually improved. Urine culture grew Pseudomonas for which she was started on Meropenem. OF note, the patient had a recent fall with fracture of the right arm and is in a splint. The patient lives with her daughter in a condo with 1 step to enter. Does not use an assistive device. This patient was seen and evaluated today. Family at bedside. She appears in no distress. Family had some questions today regarding patients recurrent UTIs. Gave advice including hydration, emptying bladder completely, proper hygiene. The patient is otherwise doing well. She does have a fracture of the radius and ulna on the right and family tells me that this was just recently repaired on August 12. They note that she was NWB post op but have not had follow up yet with Dr. Lyn. Interval history: Patient examined in her room while sitting up in bed. She is alert, pleasant and oriented x 2. She is feeling well and offers no concerns. Asking to go home soon. I explained that we will have to arrange an FI with patient's daughter who lives with the patient and assists with daily activities, to ensureshe is happy with her progress. I encouraged the patient to continue working with physical/occupational therapy to improve her strength and endurance. At this time she is still requiring CGA/min assist with transfers and CGA/mod with ambulation. I will have CM contact patient's daughter to arrange an FI early next week. On assessment patient noted to have an elevated heart rate, although regular. She had just returned from physical therapy, so we will have nursing staff recheck heart rate in 30 to 40 minutes and if remains elevated will obtain an EKG. Review of Systems Review of Systems All other systems reviewed & are negative unless noted below or in HPI Exam Physical Exam Vital Signs: Temp Pulse Resp BP Pulse Ox O2 Del Method 97.3 F L 88 18 159/70 H 95 Room Air 08/29/24 05:50 08/29/24 09:43 08/29/24 09:43 08/29/24 09:43 08/29/24 09:43 08/29/24 09:43 Narrative: General: Awake, alert, oriented x3 HENT: Normal to inspection, normocephalic, atraumatic Eyes: PERRL, normal conjunctiva and sclera Neck: Normal ROM, normal visual inspection. Trachea midline. Cardio: Regular, tachycardic Respiratory: Clear to auscultation bilaterally. Normal respiratory effort. No respiratory distress. GI: Abdomen soft, nontender, nondistended, active bowel sounds x4 quadrants Neuro: CN II-XII intact. Strength 5/5, equal bilaterally Extremities: Upper extremity tremors. Right upper extremity cast intact. Normal perfusion to the fingertips. No complaints of numbness or tingling. No edema, erythema, cyanosis in upper or lower extremities Psych: Mood and affect appropriate. Normal speech. Objective Labs 08/26/24 05:02 08/26/24 05:02 Medications and Allergies Allergies and Active Meds: Allergies Sulfa (Sulfonamide Antibiotics) Allergy (Verified 08/20/24 19:40) Difficulty Breathing sulfamethoxazole (From Bactrim) Allergy (Verified 08/20/24 19:40) Difficulty Breathing trimethoprim (From Bactrim) Allergy (Verified 08/20/24 19:40) Difficulty Breathing Active Medications Generic Name Dose Route Start Last Admin Trade Name Freq PRN Reason Stop Dose Admin Acetaminophen 500 mg 08/25/24 15:48 Acetaminophen 500 Mg Tablet PO 08/25/25 15:47 Q4H PRN Pain Al Hydrox/Mg Hydrox/Simethicone 30 ml 08/25/24 15:48 Mag Hydrox/Al Hydrox/Simeth 30 Ml Udc PO 08/25/25 15:47 Q4H PRN Indigestion Alprazolam 1 mg 08/25/24 15:53 08/28/24 20:19 Alprazolam 0.5 Mg Tablet PO 1 mg QHS PRN Administration sleep Amantadine HCl 100 mg 08/25/24 22:00 08/29/24 11:10 Amantadine 100 Mg Capsule PO 08/25/25 21:59 100 mg TID LLOYD Administration Amlodipine Besylate 10 mg 08/27/24 09:00 08/29/24 11:11 Amlodipine 10 Mg Tablet PO 08/27/25 08:59 10 mg DAILY LLOYD Administration Ascorbic Acid 1,000 mg 08/26/24 09:00 08/29/24 11:10 Ascorbic Acid 500 Mg Tablet PO 08/26/25 08:59 1,000 mg DAILY LLOYD Administration Aspirin 81 mg 08/26/24 09:00 08/29/24 11:10 Aspirin 81 Mg Tab.Chew PO 08/26/25 08:59 81 mg DAILY LLOYD Administration Bisacodyl 10 mg 08/25/24 15:48 Bisacodyl 10 Mg Supp.Rect WI 08/25/25 15:47 DAILY PRN Constipation Carbidopa/Levodopa 1 tab 08/25/24 22:00 08/29/24 11:10 Carbidopa/Levodopa 10-100 Mg 1 Tab Tablet PO 08/25/25 21:59 1 tab TID LLOYD Administration Docusate Sodium 100 mg 08/25/24 15:48 08/28/24 20:20 Docusate 100 Mg Capsule PO 08/25/25 15:47 100 mg BID PRN Administration Constipation Docusate Sodium 283 mg 08/25/24 15:48 Docusate Enema 283 Mg/5 Ml Enema WI 08/25/25 15:47 DAILY PRN Constipation Heparin Sodium (Porcine) 5,000 unit 08/25/24 21:00 08/29/24 11:11 Heparin 5,000 Unit/Ml Vial SUBCUT 08/25/25 20:59 5,000 unit Q12HR LLOYD Administration Hydralazine HCl 25 mg 08/25/24 21:00 08/29/24 11:10 Hydralazine 25 Mg Tablet PO 08/25/25 20:59 25 mg BID LLOYD Administration Lactulose 30 gm 08/25/24 15:48 Lactulose 20 Gm/30 Ml Udc PO 08/25/25 15:47 DAILY PRN Constipation Multivitamins 1 tab 08/26/24 09:00 08/29/24 11:10 Multivitamin 1 Tab Tablet PO 08/26/25 08:59 1 tab DAILY LLOYD Administration Pantoprazole Sodium 40 mg 08/26/24 09:00 08/29/24 11:10 Pantoprazole 40 Mg Tablet.Dr PO 08/26/25 08:59 40 mg QAM LLOYD Administration Potassium Chloride 20 meq 08/25/24 21:00 08/29/24 11:10 Potassium Chloride Er 20 Meq Tab.Er.Prt PO 08/25/25 20:59 20 meq BID LLOYD Administration Quetiapine Fumarate 25 mg 08/25/24 15:48 Quetiapine Fumarate 25 Mg Tablet PO 08/25/25 20:59 BID PRN Agitation Quetiapine Fumarate 25 mg 08/25/24 22:00 08/28/24 20:20 Quetiapine Fumarate 25 Mg Tablet PO 08/25/25 21:59 25 mg QHS LLOYD Administration Rasagiline 1 mg 08/26/24 09:00 08/29/24 11:16 Rasagiline 1 Mg Tablet PO 08/26/25 08:59 1 mg DAILY LLOYD Administration Ropinirole HCl 0.25 mg 08/25/24 22:00 08/28/24 20:19 Ropinirole 0.25 Mg Tablet PO 08/25/25 21:59 0.25 mg QHS LLOYD Administration Sennosides 17.2 mg 08/26/24 12:00 08/28/24 20:20 Sennosides 8.6 Mg Tablet PO 08/26/25 11:59 17.2 mg DAILY@12 PRN Administration If no BM in 2 days Sodium Chloride 0 ml 08/25/24 15:48 08/27/24 05:40 Sodium Chloride 0.9 % 10 Ml Syringe IV-PUSH 08/25/25 15:47 10 ml PRN PRN Administration Flush Vitamin D 125 mcg 08/26/24 09:00 08/29/24 11:10 Cholecalciferol 125 Mcg (5,000 Units) Capsule PO 08/26/25 08:59 125 mcg DAILY LLOYD Administration Zinc Gluconate 50 mg 08/26/24 09:00 08/29/24 11:10 Zinc Gluconate 50 Mg Tablet PO 08/26/25 08:59 50 mg DAILY LLOYD Administration Assessment/Plan Assessment/Plan (1) Parkinsons disease: Qualifiers: Dyskinesia presence: without dyskinesia Fluctuating manifestations: without fluctuating manifestations Qualified Code(s): G20.A1 - Parkinson's disease without dyskinesia, without mention of fluctuations (2) Metabolic encephalopathy: (3) Acute UTI: (4) HTN (hypertension): (5) Anxiety: (6) Impaired mobility and activities of daily living: Plan This is a 79-year-old female who presents to [facility] IR[facility] due to multifactorial functional decline in the setting of acute UTI with metabolic encephalopathy in the setting of Parkinsons Disease. She has continued impaired mobility and impaired independence with ADLs and IADLs requiring PT/OT/DRY JANITOR 5-7 days/week 3 hours/day to maximize safety and independence with functional ability and self-care. -PT to improve patient's strength, endurance, bed mobility, transfers (sit- stand), standing balance, gait quality on level surfaces and stairs, coordination and functional ADL skills. We will also work to improve patient's safety awareness during transfers and ambulation. -OT for basic ADL retraining (bathing, dressing, toileting, continence, grooming, feeding, transferring), to increase activity tolerance and functional mobility to evaluate for adaptive assistive device. We will work to improve patient's endurance and educate patient on fall prevention and energy conservation techniques-pacing strategies and proper breathing techniques duringfunctional tasks. -Patient education -Pressure ulcer prophylaxis; encourage mobilization, frequent postural changes, pressure-relief techniques -DVT prophylaxis -Encourage deep breathing exercise incentive spirometry. -Monitor bladder. Toileting schedule. Continue current bladder management, with scans as needed and CIC if needed. Start bowel care program every day to obtain continence, prevent ileus. -Maintain fall precautions -Gait and balance retraining -Provision of the necessary gait aids and functional adaptive equipment to enhance the patient's a functional taoism -Encourage deep breathing exercises and incentive spirometry -RD evaluation -Ensure adequate nutrition and hydration -Discharge planning. #. UPDATES -Continue to monitor for cardiac arrhythmias. She is tachycardic today, although regular rhythm. -Patient wants to discharge soon. We will need to arrange an FI with patient's daughter which will be done early next week. Daughter will patient to stay up here as long as possible . -NWB RUE per patients orthopedic surgeon -Completed meropenem. -Continue home medications for chronic medical conditions -PD: Sinemet 10-100 TID, Azilect daily, Requip 0.25 mg qhs, Amantadine 100 mgTID -HTN: Norvasc 5 mg daily, Hydralazine 25 mg BID -Anxiety: Xanax 1 mg qhs PRN -Seroquel 25 mg qhs for sleep/agitation. Monitor for worsening PD symptoms -Continue PT/OT/St -Hospitalist to assist with management of comorbid medical conditions #. Pain control: Tylenol PRN, #. Bowel and bladder: Continent of Bowel/bladder #. Skin: (pressure ulcer/surgical site) Pressure ulcer prophylaxis; encourage mobilization, frequent postural changes, pressure-relief techniques #. Sleep: Optimize sleep/wake cycle DVT prophylaxis: Heparin 5000 units q12hr Functional status: Impaired. Limited by pain, weakness Discharge planning: ELOS 1-2 weeks I spent 23 minutes for services, including [id number] encounter with the patient, discussion of the case, plan of care, and exam; and [id number] activities, such as reviewing pertinent integrity consultant documentation, recent therapynotes, laboratory and radiology studies, and discussion of case with care team including physician, nursing, caser, and therapists. More than 50 % of time was spent on patient/family counseling or coordination ofcare. <Statement entered by Pa Neil MD - 08/29/24 23:00> This documentation has been reviewed and approved. Documented By: Didi Navarro APRN 08/29/24 1 328 Signed By: <Electronically signed by MIGUEL Navarro> 08/29/24 1335 <Electronically signed by Pa Neil MD> 08/29/24 2300 [facility] Work Phone: [phone]) 484-418603-21-2025 [place] [address] Physiatry(Rehab) Progress Note Signed Patient: Judith Land MR#: [id number] : 1945 Acct:[id number] Age/Sex: 79 / F Adm Date: 5 Loc: Room: 9Q1151-6 Type: ADM IN Attending Dr: Pa Neil MD Copies to: ~ Date of Service: 08/29/2024 Subjective Subjective Narrative: Ms. Land is a 79 year old female with a PMH of Parkinson disease, HTN, HLD, CAD, anxiety, RLS, chronic pain who presents to the rehab unit due to multifactorial functional decline in the setting of an acute UA with hospital course complicated by metabolic encephalopathy. She initially presented to the hospital due confusion for several days. She had been treated outpatient for about a month for a UTI without resolution of her infection. While hospitalized,she became acutely agitated requiring sedatives and 1:1. Gradually improved. Urine culture grew Pseudomonas for which she was started onMeropenem. OF note, the patient had a recent fall with fracture of the right arm and is in a splint. The patient lives with her daughter in a condo with 1 step to enter. Does not use an assistive device. This patient was seen and evaluated today. Family at bedside. She appears in no distress. Family had some questions today regarding patients recurrent UTIs. Gave advice including hydration, emptying bladder completely, proper hygiene. The patient is otherwise doing well. She does have a fracture ofthe radius and ulna on the right and family tells me that this was just recently repaired on August 12. They note that she was NWB post op but have not had follow up yet with Dr. Lyn. Interval history: Patient examined in her room while sitting up in bed. She is alert, pleasant and oriented x 2. She is feeling well and offers no concerns. Asking to go home soon. I explained that we will have to arrange an FI with patient's daughter who lives with the patient and assists with daily activities, to ensureshe is happy with her progress. I encouraged the patient to continue working with physical/occupational therapy to improve her strength and endurance. At this time she is still requiring CGA/minassist with transfers and CGA/mod with ambulation. I will have CM contact patient's daughter to arrange an FI early next week. On assessment patient noted to have an elevated heart rate, although regular. She had just returnedfrom physical therapy, so we will have nursing staff recheck heart rate in 30 to 40 minutes and if remains elevated will obtain an EKG. Review of Systems Review of Systems All other systems reviewed & are negative unless noted below or in HPI Exam Physical Exam Vital Signs: Temp Pulse Resp BP Pulse Ox O2 Del Method 97.3 F L 88 18 159/70 H 95 Room Air 08/29/24 05:50 08/29/24 09:43 08/29/24 09:43 08/29/24 09:43 08/29/24 09:43 08/29/24 09:43 Narrative: General: Awake, alert, oriented x3 HENT: Normal to inspection, normocephalic, atraumatic Eyes: PERRL, normal conjunctiva and sclera Neck: Normal ROM, normal visual inspection. Trachea midline. Cardio: Regular, tachycardic Respiratory: Clear to auscultation bilaterally. Normal respiratory effort. No respiratory distress. GI: Abdomen soft, nontender, nondistended, active bowel sounds x4 quadrants Neuro: CN II-XII intact. Strength 5/5, equal bilaterally Extremities: Upper extremity tremors. Right upper extremity cast intact. Normal perfusion to the fingertips. No complaints of numbness or tingling. No edema, erythema, cyanosis in upper or lower extremities Psych: Mood and affect appropriate. Normal speech. Objective Labs 08/26/24 05:02 08/26/24 05:02 Medications and Allergies Allergies and Active Meds: Allergies Sulfa (Sulfonamide Antibiotics) Allergy (Verified 08/20/24 19:40) Difficulty Breathing sulfamethoxazole (From Bactrim) Allergy (Verified 08/20/24 19:40) Difficulty Breathing trimethoprim (From Bactrim) Allergy (Verified 08/20/24 19:40) Difficulty Breathing Active Medications Generic Name Dose Route Start Last Admin Trade Name Freq PRN Reason Stop Dose Admin Acetaminophen 500 mg 08/25/24 15:48 Acetaminophen 500 Mg Tablet PO 08/25/25 15:47 Q4H PRN Pain Al Hydrox/Mg Hydrox/Simethicone 30 ml 08/25/24 15:48 Mag Hydrox/Al Hydrox/Simeth 30 Ml Udc PO 08/25/25 15:47 Q4H PRN Indigestion Alprazolam 1 mg 08/25/24 15:53 08/28/24 20:19 Alprazolam 0.5 Mg Tablet PO 1 mg QHS PRN Administration sleep Amantadine HCl 100 mg 08/25/24 22:00 08/29/24 11:10 Amantadine 100 Mg Capsule PO 08/25/25 21:59 100 mg TID LLOYD Administration Amlodipine Besylate 10 mg 08/27/24 09:00 08/29/24 11:11 Amlodipine 10 Mg Tablet PO 08/27/25 08:59 10 mg DAILY LLOYD Administration Ascorbic Acid 1,000 mg 08/26/24 09:00 08/29/24 11:10 Ascorbic Acid 500 Mg Tablet PO 08/26/25 08:59 1,000 mg DAILY LLOYD Administration Aspirin 81 mg 08/26/24 09:00 08/29/24 11:10 Aspirin 81 Mg Tab.Chew PO 08/26/25 08:59 81 mg DAILY LLOYD Administration Bisacodyl 10 mg 08/25/24 15:48 Bisacodyl 10 Mg Supp.Rect WI 08/25/25 15:47 DAILY PRN Constipation Carbidopa/Levodopa 1 tab 08/25/24 22:00 08/29/24 11:10 Carbidopa/Levodopa 10-100 Mg 1 Tab Tablet PO 08/25/25 21:59 1 tab TID LLOYD Administration Docusate Sodium 100 mg 08/25/24 15:48 08/28/24 20:20 Docusate 100 Mg Capsule PO 08/25/25 15:47 100 mg BID PRN Administration Constipation Docusate Sodium 283 mg 08/25/24 15:48 Docusate Enema 283 Mg/5 Ml Enema WI 08/25/25 15:47 DAILY PRN Constipation Heparin Sodium (Porcine) 5,000 unit 08/25/24 21:00 08/29/24 11:11 Heparin 5,000 Unit/Ml Vial SUBCUT 08/25/25 20:59 5,000 unit Q12HR LLOYD Administration Hydralazine HCl 25 mg 08/25/24 21:00 08/29/24 11:10 Hydralazine 25 Mg Tablet PO 08/25/25 20:59 25 mg BID LLOYD Administration Lactulose 30 gm 08/25/24 15:48 Lactulose 20 Gm/30 Ml Udc PO 08/25/25 15:47 DAILY PRN Constipation Multivitamins 1 tab 08/26/24 09:00 08/29/24 11:10 Multivitamin 1 Tab Tablet PO 08/26/25 08:59 1 tab DAILY LLOYD Administration Pantoprazole Sodium 40 mg 08/26/24 09:00 08/29/24 11:10 Pantoprazole 40 Mg Tablet.Dr PO 08/26/25 08:59 40 mg QAM LLOYD Administration Potassium Chloride 20 meq 08/25/24 21:00 08/29/24 11:10 Potassium Chloride Er 20 Meq Tab.Er.Prt PO 08/25/25 20:59 20 meq BID LLOYD Administration Quetiapine Fumarate 25 mg 08/25/24 15:48 Quetiapine Fumarate 25 Mg Tablet PO 08/25/25 20:59 BID PRN Agitation Quetiapine Fumarate 25 mg 08/25/24 22:00 08/28/24 20:20 Quetiapine Fumarate 25 Mg Tablet PO 08/25/25 21:59 25 mg QHS LLOYD Administration Rasagiline 1 mg 08/26/24 09:00 08/29/24 11:16 Rasagiline 1 Mg Tablet PO 08/26/25 08:59 1 mg DAILY LLOYD Administration Ropinirole HCl 0.25 mg 08/25/24 22:00 08/28/24 20:19 Ropinirole 0.25 Mg Tablet PO 08/25/25 21:59 0.25 mg QHS LLOYD Administration Sennosides 17.2 mg 08/26/24 12:00 08/28/24 20:20 Sennosides 8.6 Mg Tablet PO 08/26/25 11:59 17.2 mg DAILY@12 PRN Administration If no BM in 2 days Sodium Chloride 0 ml 08/25/24 15:48 08/27/24 05:40 Sodium Chloride 0.9 % 10 Ml Syringe IV-PUSH 08/25/25 15:47 10 ml PRN PRN Administration Flush Vitamin D 125 mcg 08/26/24 09:00 08/29/24 11:10 Cholecalciferol 125 Mcg (5,000 Units) Capsule PO 08/26/25 08:59 125 mcg DAILY LLOYD Administration Zinc Gluconate 50 mg 08/26/24 09:00 08/29/24 11:10 Zinc Gluconate 50 Mg Tablet PO 08/26/25 08:59 50 mg DAILY LLOYD Administration Assessment/Plan Assessment/Plan (1) Parkinsons disease: Qualifiers: Dyskinesia presence: without dyskinesia Fluctuating manifestations: without fluctuating manifestations Qualified Code(s): G20.A1 - Parkinson's disease without dyskinesia, without mention of fluctuations (2) Metabolic encephalopathy: (3) Acute UTI: (4) HTN (hypertension): (5) Anxiety: (6) Impaired mobility and activities of daily living: Plan This is a 79-year-old female who presents to [facility] due to multifactorial functional decline in the setting of acute UTI with metabolic encephalopathy in the setting ofParkinsons Disease. She has continued impaired mobility and impaired independence with ADLs and IADLs requiring PT/OT/DRY JANITOR 5-7 days/week 3 hours/day to maximize safety and independence with functionalability and self-care. -PT to improve patient's strength, endurance, bed mobility, transfers (sit- stand), standing balance, gait quality on level surfaces and stairs, coordination and functional ADL skills. We will also work to improve patient's safety awareness during transfers and ambulation. -OT for basic ADL retraining (bathing, dressing, toileting, continence, grooming, feeding, transferring), to increase activity tolerance and functional mobility to evaluate for adaptive assistive device. We will work to improve patient's endurance and educate patient on fall prevention and energy co nservation techniques-pacing strategies and proper breathing techniques duringfunctional tasks. -Patient education -Pressure ulcer prophylaxis; encourage mobilization, frequent postural changes, pressure-relief techniques -DVT prophylaxis -Encourage deep breathing exercise incentive spirometry. -Monitor bladder. Toileting schedule. Continue current bladder management, with scans as needed andCIC if needed. Start bowel care program every day to obtain continence, prevent ileus. -Maintain fall precautions -Gait and balance retraining -Provision of the necessary gait aids and functional adaptive equipment to enhance the patient's a functional taoism -Encourage deep breathing exercises and incentive spirometry -RD evaluation -Ensure adequate nutrition and hydration -Discharge planning. #. UPDATES -Continue to monitor for cardiac arrhythmias. She is tachycardic today, although regular rhythm. -Patient wants to discharge soon. We will need to arrange an FI with patient's daughter which will be done early next week. Daughter will patient to stay up here as long as possible . -NWB RUE per patients orthopedic surgeon -Completed meropenem. -Continue home medications for chronic medical conditions -PD: Sinemet 10-100 TID, Azilect daily, Requip 0.25 mg qhs, Amantadine 100 mgTID -HTN: Norvasc 5 mg daily, Hydralazine 25 mg BID -Anxiety: Xanax 1 mg qhs PRN -Seroquel 25 mg qhs for sleep/agitation. Monitor for worsening PD symptoms -Continue PT/OT/St -Hospitalist to assist with management of comorbid medical conditions #. Pain control: Tylenol PRN, #. Bowel and bladder: Continent of Bowel/bladder #. Skin: (pressure ulcer/surgical site) Pressure ulcer prophylaxis; encourage mobilization, frequent postural changes, pressure-relief techniques #. Sleep: Optimize sleep/wake cycle DVT prophylaxis: Heparin 5000 units q12hr Functional status: Impaired. Limited by pain, weakness Discharge planning: ELOS 1-2 weeks I spent 23 minutes for services, including [id number] encounter with the patient, discussion of the case, plan of care, and exam; and [id number] activities, such as reviewing pertinent integrity consultant documentation, recent therapynotes, laboratory and radiology studies, and discussion of case with care team including physician, nursing, caser, and therapists. More than 50 % of time was spent on patient/family counseling or coordination ofcare. This documentation has been reviewed and approved. Documented By: Didi Navarro APRN 08/29/24 1 328 Signed By: 08/29/24 1335 08/29/24 2300 [facility]03-20-2025 Consult note Author Katarzyna Major [facility] Note Date/Time August 28, 2024 2:2 9pm [facility] [address] [place] [address] Hospitalist Consult Note Signed Patient: Judiht Land MR#: [id number] : 1945 Acct:[id number] Age/Sex: 79 / F Adm Date: 5 Loc: Room: [address] [place] [address] Type: ADM IN Attending Dr: Pa Neil MD Copies to: MD Kavon Champion MD Linda Obika, MIGUEL Alberts Dilan, DO~ HPI DATE OF CONSULTATION: 08/26/24 REQUESTING PROVIDER: Pa Neil Consult Narrative Reason for Consult: Hypertension HPI: Ms. Land is a 79 year old female with a PMH of Parkinson disease, HTN, HLD, CAD, anxiety, RLS, chronic pain who presented emergency department on August 20, 2024 with altered mental status for 4 to 5 days. She had reportedly been treated for UTI for the past 2 months and was having nausea, dry heaves with loose stools. Urinalysis was positive for leukocyte esterase, WBCs and rare bacteria. She was continued on antibiotic with cefepime as previous urine culture was positive for Pseudomonas. She was also noted to have acute kidney injury, with creatinine at 1.43 which was treated with IV fluids and resolved. Her home lisinopril and HCTZ was initially put on hold due to ANTONIO and was eventually discontinued and started on amlodipine 5 mg daily. She was seen and evaluated by neurology who started her on Seroquel 25 mg for agitated as needed and recommended to optimize sleep/wake. Her mentation improved during hospital stay and urine culture grew Pseudomonas once again. She was on antibiotics to complete 1 more day of IV antibiotics. She was seen and evaluated by physical therapy and Occupational Therapy and recommended acuteinpatient rehabilitation. Hospitalist team has been consulted for medical management of hypertension. Patient seen and examined with family in room. Sheis alert she is oriented x 3. Denies chest pain or palpitation. No cough, dyspnea, or pain with inspiration. No abdominal pain or indigestion, constipation or diarrhea, nausea or vomiting. No dysuria or retention. No headache or dizziness. 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 Family History Mother Stroke Father Cancer Lung Son Cancer Lymphoma Social History Smoking Status: Former smoker Tobacco Type: cigarettes Substance Use Type: None Meds Medications and Allergies Allergies Sulfa (Sulfonamide Antibiotics) Allergy (Verified 08/20/24 19:40) Difficulty Breathing sulfamethoxazole (From Bactrim) Allergy (Verified 08/20/24 19:40) Difficulty Breathing trimethoprim (From Bactrim) Allergy (Verified 08/20/24 19:40) Difficulty Breathing Home Medications alprazolam 1 mg tablet (Xanax) 1 mg PO QHS PRN sleep 08/20/24 [History Confirmed 08/25/24] ascorbic acid (vitamin C) 1,000 mg capsule 1 g PO DAILY 08/21/24 [History Confirmed 08/25/24] aspirin 81 mg chewable tablet 81 mg PO DAILY 08/21/24 [History Confirmed 08/25/24] carbidopa 10 mg-levodopa 100 mg tablet (Sinemet) 1 tab PO TID 08/21/24 [History Confirmed 08/25/24] cholecalciferol (vitamin D3) 125 mcg (5,000 unit) capsule 125 mcg PO DAILY 08/21/24 [History Confirmed 08/25/24] lutein 25 mg-zeaxanthin 5 mg capsule 1 cap PO DAILY 08/21/24 [History Confirmed 08/25/24] multivitamin 1 tab PO DAILY 08/21/24 [History Confirmed 08/25/24] pantoprazole 40 mg tablet,delayed release 40 mg PO QAM 08/21/24 [History Confirmed 08/25/24] potassium chloride 20 mEq tablet,extended release(part/cryst) (Klor-Con M) 20 meq PO BID 08/21/24 [History Confirmed 08/25/24] rasagiline 1 mg tablet 1 mg PO DAILY 08/21/24 [History Confirmed 08/25/24] zinc gluconate 50 mg tablet 50 mg PO DAILY 08/21/24 [History Confirmed 08/25/24] amantadine HCl 100 mg tablet 100 mg PO TID 08/24/24 [History Confirmed 08/25/24] amlodipine 5 mg tablet 5 mg PO DAILY #0 tabs 08/25/24 [Rx Confirmed 08/25/24] hydralazine 25 mg tablet 25 mg PO BID #60 tabs 08/25/24 [Rx Confirmed 08/25/24] meropenem 1 gram intravenous solution 1 g IV Q12H 1 day #0 ea 08/25/24 [Rx Confirmed 08/25/24] quetiapine 25 mg tablet 25 mg PO QHS #0 tabs 08/25/24 [Rx Confirmed 08/25/24] ropinirole 0.25 mg tablet 0.25 mg PO QHS #0 tabs 08/25/24 [Rx Confirmed 08/25/24] Active Medications: Active Medications Generic Name Dose Route Start Last Admin Trade Name Freq PRN Reason Stop Dose Admin Acetaminophen 500 mg 08/25/24 15:48 Acetaminophen 500 Mg Tablet PO 08/25/25 15:47 Q4H PRN Pain Al Hydrox/Mg Hydrox/Simethicone 30 ml 08/25/24 15:48 Mag Hydrox/Al Hydrox/Simeth 30 Ml Udc PO 08/25/25 15:47 Q4H PRN Indigestion Alprazolam 1 mg 08/25/24 15:53 08/25/24 21:26 Alprazolam 0.5 Mg Tablet PO 1 mg QHS PRN Administration sleep Amantadine HCl 100 mg 08/25/24 22:00 08/26/24 09:05 Amantadine 100 Mg Capsule PO 08/25/25 21:59 100 mg TID LLOYD Administration Amlodipine Besylate 5 mg 08/26/24 09:00 08/26/24 09:08 Amlodipine 5 Mg Tablet PO 08/26/25 08:59 5 mg DAILY LLOYD Administration Ascorbic Acid 1,000 mg 08/26/24 09:00 08/26/24 09:08 Ascorbic Acid 500 Mg Tablet PO 08/26/25 08:59 1,000 mg DAILY LLOYD Administration Aspirin 81 mg 08/26/24 09:00 08/26/24 09:05 Aspirin 81 Mg Tab.Chew PO 08/26/25 08:59 81 mg DAILY LLOYD Administration Bisacodyl 10 mg 08/25/24 15:48 Bisacodyl 10 Mg Supp.Rect WI 08/25/25 15:47 DAILY PRN Constipation Carbidopa/Levodopa 1 tab 08/25/24 22:00 08/26/24 09:05 Carbidopa/Levodopa 10-100 Mg 1 Tab Tablet PO 08/25/25 21:59 1 tab TID LLOYD Administration Docusate Sodium 100 mg 08/25/24 15:48 Docusate 100 Mg Capsule PO 08/25/25 15:47 BID PRN Constipation Docusate Sodium 283 mg 08/25/24 15:48 Docusate Enema 283 Mg/5 Ml Enema WI 08/25/25 15:47 DAILY PRN Constipation Heparin Sodium (Porcine) 5,000 unit 08/25/24 21:00 08/26/24 09:06 Heparin 5,000 Unit/Ml Vial SUBCUT 08/25/25 20:59 5,000 unit Q12HR LLOYD Administration Hydralazine HCl 25 mg 08/25/24 21:00 08/26/24 09:08 Hydralazine 25 Mg Tablet PO 08/25/25 20:59 25 mg BID LLOYD Administration Meropenem 1 gm in 100 mls @ 200 mls/hr 08/25/24 20:00 08/26/24 08:55 Merrem IV 08/26/24 20:29 200 mls/hr Q12H LLOYD Administration Lactulose 30 gm 08/25/24 15:48 Lactulose 20 Gm/30 Ml Udc PO 08/25/25 15:47 DAILY PRN Constipation Multivitamins 1 tab 08/26/24 09:00 08/26/24 09:06 Multivitamin 1 Tab Tablet PO 08/26/25 08:59 1 tab DAILY LLOYD Administration Pantoprazole Sodium 40 mg 08/26/24 09:00 08/26/24 09:06 Pantoprazole 40 Mg Tablet.Dr PO 08/26/25 08:59 40 mg QAM LLOYD Administration Potassium Chloride 20 meq 08/25/24 21:00 08/26/24 09:08 Potassium Chloride Er 20 Meq Tab.Er.Prt PO 08/25/25 20:59 20 meq BID LLOYD Administration Quetiapine Fumarate 25 mg 08/25/24 15:48 Quetiapine Fumarate 25 Mg Tablet PO 08/25/25 20:59 BID PRN Agitation Quetiapine Fumarate 25 mg 08/25/24 22:00 08/25/24 21:27 Quetiapine Fumarate 25 Mg Tablet PO 08/25/25 21:59 25 mg QHS LLOYD Administration Rasagiline 1 mg 08/26/24 09:00 08/26/24 09:09 Rasagiline 1 Mg Tablet PO 08/26/25 08:59 1 mg DAILY LLOYD Administration Ropinirole HCl 0.25 mg 08/25/24 22:00 08/25/24 21:27 Ropinirole 0.25 Mg Tablet PO 08/25/25 21:59 0.25 mg QHS LLOYD Administration Sennosides 17.2 mg 08/26/24 12:00 Sennosides 8.6 Mg Tablet PO 08/26/25 11:59 DAILY@12 PRN If no BM in 2 days Sodium Chloride 0 ml 08/25/24 15:48 Sodium Chloride 0.9 % 10 Ml Syringe IV-PUSH 08/25/25 15:47 PRN PRN Flush Sodium Chloride 10 ml 08/25/24 22:00 08/26/24 05:41 Sodium Chloride 0.9 % 10 Ml Syringe IV-PUSH 08/25/25 21:59 10 ml Q8H LLOYD Administration Vitamin D 125 mcg 08/26/24 09:00 08/26/24 09:06 Cholecalciferol 125 Mcg (5,000 Units) Capsule PO 08/26/25 08:59 125 mcg DAILY LLOYD Administration Zinc Gluconate 50 mg 08/26/24 09:00 08/26/24 09:06 Zinc Gluconate 50 Mg Tablet PO 08/26/25 08:59 50 mg DAILY LLOYD Administration Exam Physical Exam Vital Signs: Temp Pulse Resp BP Pulse Ox O2 Del Method 98.2 F 73 16 157/93 H 95 Room Air 08/26/24 05:40 08/26/24 05:40 08/26/24 05:40 08/26/24 05:40 08/26/24 05:40 08/26/24 09:00 Narrative: CONST-thin, alert, awake, cooperative, comfortable HEAD - Normocephalic and atraumatic EENT?Sclera nonicteric and conjunctive are nonerythemic, moist oral mucosa, pharynx clear NECK?Supple, no cervical lymphadenopathy CARDIAC?normal rate, regular rhythm, normal S1 & S2. PULM?diminished without wheeze or rhonchi, RA, no accessory muscle use or cough noted ABD ? Soft. Bowel sounds are normal. No distention No tenderness EXTREM?no edema BLE calves nontender. Dressing to right upper arm intact SKIN?fair skin turgor, bruising to left upper extremity MS- MAEX4 spontaneously with equal with equal strength NEURO? A&Ox3 speech clear and tongue midline, equal facial symmetry no focal motor deficits PSYCH?Mood, affect and behavior appropriate Results - Hospitalist Consult Lab Results Labs: Laboratory Results - last 72 hr 08/26/24 05:02: Corrected WBC 8.9, Uncorrected WBC Count 8.9, RBC 4.19, Hgb 13.0, Hct 38.7, MCV 92.3, MCH 31.1, MCHC 33.7, RDW 14.9, Plt Count 254, MPV 9.9,Neut % (Auto) N/A, Lymph % (Auto) N/A, [place] % (Auto) N/A, Eos % (Auto) N/A, Baso% (Auto) N/A, Nucleat RBC Rel Count N/A, Neut # (Auto) N/A, Lymph # (Auto) N/A, [place] # (Auto) N/A, Eos # (Auto) N/A, Baso # (Auto) N/A, Lymphocytes % 28, Monocytes % 12 H, Eosinophils % 3, Basophils % 1, Myelocytes % 1 H, Segmented Neutrophils 53, Reactive Lymphocytes 2, Platelet Estimate Normal, Large Platelets Slight, Giant Platelets 1, Plt Morphology Comment N/A, RBC Morphology N/A, Poikilocytosis Moderate, Target Cells Slight, Ovalocytes Moderate, CrenatedCell Moderate, Acanthocytes (Spur) Slight, Schistocytes Slight, PHA Creatinine Clear 31.08, Sodium 144, Potassium 3.7, Chloride 108 H, Carbon Dioxide 29.5, Anion Gap 10.2, BUN 22, Creatinine 1.14, Est GFR (CKD-EPI) 49.274, Glucose 86, Calcium 11.0 H, Total Bilirubin 0.5, AST 15, ALT 4 L, Alkaline Phosphatase 107 H, Total Protein 6.0 L, Albumin 3.8, Globulin 2.2, Albumin/Globulin Ratio 1.7, Prealbumin 15.9 L, Slides for Path Review Cancelled Assessment & Plan Assessment/Plan (1) UTI (urinary tract infection): (2) Metabolic encephalopathy: (3) Impaired mobility and activities of daily living: Plan Acute Pseudomonas UTI Metabolic encephalopathy?resolved Impaired mobility and activities of daily living ?Plan of care for rehabilitation, PT/OT, DVT prophylaxis, bowel regimen per PM&Rteam. ?On meropenem IV 1 g x 3 doses ?On amantadine and Seroquel Chronic conditions: 1.HTN?on amlodipine, hydralazine, blood pressure uncontrolled, will increase amlodipine and continue to monitor 2.Parkinson's disease?carbidopa levodopa, rasagiline 3.RLS?ropinirole 4.Depression?on Rasagiline Documented By: Katarzyna Major APRN 08/26/24 1445 Signed By: <Electronically signed by MIGUEL Major> 08/26/24 1546 <Electronically signed by Aristeo Kong DO> 08/28/24 1423 [facility] Work Phone: [phone] 412-936003-20-2025 Progress note Author Pa Neil [facility] Note Date/Time August 28, 2024 12: 42pm [facility] [address] [place] [address] Physiatry(Rehab) Progress Note Signed Patient: Judith Land MR#: [id number] : 1945 Acct:[id number] Age/Sex: 79 / F Adm Date: Loc: 5T Room: 2U8737-2 Type: ADM IN Attending Dr: Pa Neil MD Copies to: ~ Date of Service: 08/28/2024 Subjective Subjective Narrative: Ms. Land is a 79 year old female with a PMH of Parkinson disease, HTN, HLD, CAD, anxiety, RLS, chronic pain who presents to the rehab unit due to multifactorial functional decline in the setting of an acute UA with hospital course complicated by metabolic encephalopathy. She initially presented to the hospital due confusion for several days. She had been treated outpatient for about a month for a UTI without resolution of her infection. While hospitalized,she became acutely agitated requiring sedatives and 1:1. Gradually improved. Urine culture grew Pseudomonas for which she was started on Meropenem. OF note, the patient had a recent fall with fracture of the right arm and is in a splint. The patient lives with her daughter in a condo with 1 step to enter. Does not use an assistive device. This patient was seen and evaluated today. Family at bedside. She appears in no distress. Family had some questions today regarding patients recurrent UTIs. Gave advice including hydration, emptying bladder completely, proper hygiene. The patient is otherwise doing well. She does have a fracture of the radius and ulna on the right and family tells me that this was just recently repaired on August 12. They note that she was NWB post op but have not had follow up yet with Dr. Lyn. Interval history: This patient was seen and examined at bedside today. She appears in no distress.She denies chest pain, SOB, fever, chills. Requesting to come off telemetry which was added yesterday due to some concern for irregular HR. EKG demonstratedtachycardia with occasional premature supraventricular complexes. On exam, her HR is regular. No reported events on telemetry. Review of Systems Review of Systems All other systems reviewed & are negative unless noted below or in HPI Exam Physical Exam Vital Signs: Temp Pulse Resp BP Pulse Ox O2 Del Method 97.5 F L 88 18 151/76 H 94 L Room Air 03/20/25 05:00 08/28/24 05:00 08/28/24 05:00 08/28/24 05:57 08/28/24 05:00 08/28/24 09:47 Narrative: NAD. Sitting up in chair. Cachectic Extremities well perfused No respiratory distress RRR Abdomen soft, non distended DELMER. Tremor appreciated in all 4 extremities Speech is normal, fluent Objective Labs 08/26/24 05:02 08/26/24 05:02 Medications and Allergies Allergies and Active Meds: Allergies Sulfa (Sulfonamide Antibiotics) Allergy (Verified 08/20/24 19:40) Difficulty Breathing sulfamethoxazole (From Bactrim) Allergy (Verified 08/20/24 19:40) Difficulty Breathing trimethoprim (From Bactrim) Allergy (Verified 08/20/24 19:40) Difficulty Breathing Active Medications Generic Name Dose Route Start Last Admin Trade Name Freq PRN Reason Stop Dose Admin Acetaminophen 500 mg 08/25/24 15:48 Acetaminophen 500 Mg Tablet PO 08/25/25 15:47 Q4H PRN Pain Al Hydrox/Mg Hydrox/Simethicone 30 ml 08/25/24 15:48 Mag Hydrox/Al Hydrox/Simeth 30 Ml Udc PO 08/25/25 15:47 Q4H PRN Indigestion Alprazolam 1 mg 08/25/24 15:53 08/27/24 20:45 Alprazolam 0.5 Mg Tablet PO 1 mg QHS PRN Administration sleep Amantadine HCl 100 mg 08/25/24 22:00 08/28/24 08:39 Amantadine 100 Mg Capsule PO 08/25/25 21:59 100 mg TID LLOYD Administration Amlodipine Besylate 10 mg 08/27/24 09:00 08/28/24 08:39 Amlodipine 10 Mg Tablet PO 08/27/25 08:59 10 mg DAILY LLOYD Administration Ascorbic Acid 1,000 mg 08/26/24 09:00 08/28/24 08:39 Ascorbic Acid 500 Mg Tablet PO 08/26/25 08:59 1,000 mg DAILY LLOYD Administration Aspirin 81 mg 08/26/24 09:00 08/28/24 08:39 Aspirin 81 Mg Tab.Chew PO 08/26/25 08:59 81 mg DAILY LLOYD Administration Bisacodyl 10 mg 08/25/24 15:48 Bisacodyl 10 Mg Supp.Rect WI 08/25/25 15:47 DAILY PRN Constipation Carbidopa/Levodopa 1 tab 08/25/24 22:00 08/28/24 08:39 Carbidopa/Levodopa 10-100 Mg 1 Tab Tablet PO 08/25/25 21:59 1 tab TID LLOYD Administration Docusate Sodium 100 mg 08/25/24 15:48 Docusate 100 Mg Capsule PO 08/25/25 15:47 BID PRN Constipation Docusate Sodium 283 mg 08/25/24 15:48 Docusate Enema 283 Mg/5 Ml Enema WI 08/25/25 15:47 DAILY PRN Constipation Heparin Sodium (Porcine) 5,000 unit 08/25/24 21:00 08/28/24 08:39 Heparin 5,000 Unit/Ml Vial SUBCUT 08/25/25 20:59 5,000 unit Q12HR LLOYD Administration Hydralazine HCl 25 mg 08/25/24 21:00 08/28/24 08:39 Hydralazine 25 Mg Tablet PO 08/25/25 20:59 25 mg BID LLOYD Administration Lactulose 30 gm 08/25/24 15:48 Lactulose 20 Gm/30 Ml Udc PO 08/25/25 15:47 DAILY PRN Constipation Multivitamins 1 tab 08/26/24 09:00 08/28/24 08:39 Multivitamin 1 Tab Tablet PO 08/26/25 08:59 1 tab DAILY LLOYD Administration Pantoprazole Sodium 40 mg 08/26/24 09:00 08/28/24 08:39 Pantoprazole 40 Mg Tablet.Dr PO 08/26/25 08:59 40 mg QAM LLOYD Administration Potassium Chloride 20 meq 08/25/24 21:00 08/28/24 08:39 Potassium Chloride Er 20 Meq Tab.Er.Prt PO 08/25/25 20:59 20 meq BID LLOYD Administration Quetiapine Fumarate 25 mg 08/25/24 15:48 Quetiapine Fumarate 25 Mg Tablet PO 08/25/25 20:59 BID PRN Agitation Quetiapine Fumarate 25 mg 08/25/24 22:00 08/27/24 20:45 Quetiapine Fumarate 25 Mg Tablet PO 08/25/25 21:59 25 mg QHS LLOYD Administration Rasagiline 1 mg 08/26/24 09:00 08/28/24 08:38 Rasagiline 1 Mg Tablet PO 08/26/25 08:59 1 mg DAILY LLOYD Administration Ropinirole HCl 0.25 mg 08/25/24 22:00 08/27/24 20:45 Ropinirole 0.25 Mg Tablet PO 08/25/25 21:59 0.25 mg QHS LLOYD Administration Sennosides 17.2 mg 08/26/24 12:00 Sennosides 8.6 Mg Tablet PO 08/26/25 11:59 DAILY@12 PRN If no BM in 2 days Sodium Chloride 0 ml 08/25/24 15:48 08/27/24 05:40 Sodium Chloride 0.9 % 10 Ml Syringe IV-PUSH 08/25/25 15:47 10 ml PRN PRN Administration Flush Sodium Chloride 10 ml 08/25/24 22:00 08/28/24 05:26 Sodium Chloride 0.9 % 10 Ml Syringe IV-PUSH 08/25/25 21:59 10 ml Q8H LLOYD Administration Vitamin D 125 mcg 08/26/24 09:00 08/28/24 08:39 Cholecalciferol 125 Mcg (5,000 Units) Capsule PO 08/26/25 08:59 125 mcg DAILY LLOYD Administration Zinc Gluconate 50 mg 08/26/24 09:00 08/28/24 08:39 Zinc Gluconate 50 Mg Tablet PO 08/26/25 08:59 50 mg DAILY LLOYD Administration Assessment/Plan Assessment/Plan (1) Parkinsons disease: Qualifiers: Dyskinesia presence: without dyskinesia Fluctuating manifestations: without fluctuating manifestations Qualified Code(s): G20.A1 - Parkinson's disease without dyskinesia, without mention of fluctuations (2) Metabolic encephalopathy: (3) Acute UTI: (4) HTN (hypertension): (5) Anxiety: (6) Impaired mobility and activities of daily living: Plan This is a 79-year-old female who presents to [facility] due to multifactorial functional decline in the setting of acute UTI with metabolic encephalopathy in the setting of Parkinsons Disease. She has continued impaired mobility and impaired independence with ADLs and IADLs requiring PT/OT/DRY JANITOR 5-7 days/week 3 hours/day to maximize safety and independence with functional ability and self-care. -PT to improve patient's strength, endurance, bed mobility, transfers (sit- stand), standing balance, gait quality on level surfaces and stairs, coordination and functional ADL skills. We will also work to improve patient's safety awareness during transfers and ambulation. -OT for basic ADL retraining (bathing, dressing, toileting, continence, grooming, feeding, transferring), to increase activity tolerance and functional mobility to evaluate for adaptive assistive device. We will work to improve patient's endurance and educate patient on fall prevention and energy conservation techniques-pacing strategies and proper breathing techniques duringfunctional tasks. -Patient education -Pressure ulcer prophylaxis; encourage mobilization, frequent postural changes, pressure-relief techniques -DVT prophylaxis -Encourage deep breathing exercise incentive spirometry. -Monitor bladder. Toileting schedule. Continue current bladder management, with scans as needed and CIC if needed. Start bowel care program every day to obtain continence, prevent ileus. -Maintain fall precautions -Gait and balance retraining -Provision of the necessary gait aids and functional adaptive equipment to enhance the patient's a functional taoism -Encourage deep breathing exercises and incentive spirometry -RD evaluation -Ensure adequate nutrition and hydration -Discharge planning. #. UPDATES -Rhythm regular today. Can DC Telemetry -NWB RUE per patients orthopedic surgeon -Completed meropenem. -Continue home medications for chronic medical conditions -PD: Sinemet 10-100 TID, Azilect daily, Requip 0.25 mg qhs, Amantadine 100 mgTID -HTN: Norvasc 5 mg daily, Hydralazine 25 mg BID -Anxiety: Xanax 1 mg qhs PRN -Seroquel 25 mg qhs for sleep/agitation. Monitor for worsening PD symptoms -Continue PT/OT/St -Hospitalist to assist with management of comorbid medical conditions #. Pain control: Tylenol PRN, #. Bowel and bladder: Continent of Bowel/bladder #. Skin: (pressure ulcer/surgical site) Pressure ulcer prophylaxis; encourage mobilization, frequent postural changes, pressure-relief techniques #. Sleep: Optimize sleep/wake cycle DVT prophylaxis: Heparin 5000 units q12hr Functional status: Impaired. Limited by pain, weakness Discharge planning: JOSE LUIS 1-2 weeks I spent 25 minutes for services, including [id number] encounter with the patient, discussion of the case, plan of care, and exam; and [id number] activities, such as reviewing pertinent integrity consultant documentation, recent therapynotes, laboratory and radiology studies, and discussion of case with care team including physician, nursing, caser, and therapists. More than 50 % of time was spent on patient/family counseling or coordination ofcare. Documented By: Pa Neil MD [id number] Signed By: <Electronically signed by Pa Neil MD> 08/28/24 1242 [facility] Work Phone: [phone] 370-440603-20-2025 Consult note[place] [id number] Hospitalist Consult Note Signed Patient: Judith Land MR#: [id number] : 1945 Acct:[id number] Age/Sex: 79 / F Adm Date: 5 Loc: Room: [address] [place] [address] Type: ADM IN Attending Dr: Pa Neil MD Copies to: MD Kavon Champion MD Linda Obika, MIGUEL Kong, DO~ HPI DATE OF CONSULTATION: 08/26/24 REQUESTING PROVIDER: Pa Neil Consult Narrative Reason for Consult: Hypertension HPI: Ms. Land is a 79 year old female with a PMH of Parkinson disease, HTN, HLD, CAD, anxiety, RLS, chronic pain who presented emergency department on August 20, 2024 with altered mental status for 4 to5 days. She had reportedly been treated for UTI for the past 2 months and was having nausea, dry heaves with loose stools. Urinalysis was positive for leukocyte esterase, WBCs and rare bacteria. She was continued on antibiotic with cefepime as previous urine culture was positive for Pseudomonas. She was also noted to have acute kidney injury, with creatinine at 1.43 which was treated with IV fluids and resolved. Her home lisinopril and HCTZ was initially put on hold due to ANTONIO and was eventually discontinued and started on amlodipine 5 mg daily. She was seen and evaluated by neurology who started her on Seroquel 25 mg for agitated as needed and recommended to optimize sleep/wake. Her mentation improved during hospital stay and urine culture grew Pseudomonas once again. She was on antibiotics to complete 1 more day of IV antibiotics. She was seen and evaluated by physical therapy and Occupational Therapy and recommended acuteinpatient rehabilitation. Hospitalist team has been consulted for medical management of hypertension. Patient seen and examined with family in room. Sheis alert she is oriented x 3. Denies chest pain or palpitation. No cough, dyspnea, or pain with inspiration. No abdominal pain or indigestion, constipation or gilmer rrhea, nausea or vomiting. No dysuria or retention. No headache or dizziness. 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 Family History Mother Stroke Father Cancer Lung Son Cancer Lymphoma Social History Smoking Status: Former smoker Tobacco Type: cigarettes Substance Use Type: None Meds Medications and Allergies Allergies Sulfa (Sulfonamide Antibiotics) Allergy (Verified 08/20/24 19:40) Difficulty Breathing sulfamethoxazole (From Bactrim) Allergy (Verified 08/20/24 19:40) Difficulty Breathing trimethoprim (From Bactrim) Allergy (Verified 08/20/24 19:40) Difficulty Breathing Home Medications alprazolam 1 mg tablet (Xanax) 1 mg PO QHS PRN sleep 08/20/24 [History Confirmed 08/25/24] ascorbic acid (vitamin C) 1,000 mg capsule 1 g PO DAILY 08/21/24 [History Confirmed 08/25/24] aspirin 81 mg chewable tablet 81 mg PO DAILY 08/21/24 [History Confirmed 08/25/24] carbidopa 10 mg-levodopa 100 mg tablet (Sinemet) 1 tab PO TID 08/21/24 [History Confirmed 08/25/24] cholecalciferol (vitamin D3) 125 mcg (5,000 unit) capsule 125 mcg PO DAILY 08/21/24 [History Confirmed 08/25/24] lutein 25 mg-zeaxanthin 5 mg capsule 1 cap PO DAILY 08/21/24 [History Confirmed 08/25/24] multivitamin 1 tab PO DAILY 08/21/24 [History Confirmed 08/25/24] pantoprazole 40 mg tablet,delayed release 40 mg PO QAM 08/21/24 [History Confirmed 08/25/24] potassium chloride 20 mEq tablet,extended release(part/cryst) (Klor-Con M) 20 meq PO BID 08/21/24 [History Confirmed 08/25/24] rasagiline 1 mg tablet 1 mg PO DAILY 08/21/24 [History Confirmed 08/25/24] zinc gluconate 50 mg tablet 50 mg PO DAILY 08/21/24 [History Confirmed 08/25/24] amantadine HCl 100 mg tablet 100 mg PO TID 08/24/24 [History Confirmed 08/25/24] amlodipine 5 mg tablet 5 mg PO DAILY #0 tabs 08/25/24 [Rx Confirmed 08/25/24] hydralazine 25 mg tablet 25 mg PO BID #60 tabs 08/25/24 [Rx Confirmed 08/25/24] meropenem 1 gram intravenous solution 1 g IV Q12H 1 day #0 ea 08/25/24 [Rx Confirmed 08/25/24] quetiapine 25 mg tablet 25 mg PO QHS #0 tabs 08/25/24 [Rx Confirmed 08/25/24] ropinirole 0.25 mg tablet 0.25 mg PO QHS #0 tabs 08/25/24 [Rx Confirmed 08/25/24] Active Medications: Active Medications Generic Name Dose Route Start Last Admin Trade Name Erick PRN Reason Stop Dose Admin Acetaminophen 500 mg 08/25/24 15:48 Acetaminophen 500 Mg Tablet PO 08/25/25 15:47 Q4H PRN Pain Al Hydrox/Mg Hydrox/Simethicone 30 ml 08/25/24 15:48 Mag Hydrox/Al Hydrox/Simeth 30 Ml Udc PO 08/25/25 15:47 Q4H PRN Indigestion Alprazolam 1 mg 08/25/24 15:53 08/25/24 21:26 Alprazolam 0.5 Mg Tablet PO 1 mg QHS PRN Administration sleep Amantadine HCl 100 mg 08/25/24 22:00 08/26/24 09:05 Amantadine 100 Mg Capsule PO 08/25/25 21:59 100 mg TID LLOYD Administration Amlodipine Besylate 5 mg 08/26/24 09:00 08/26/24 09:08 Amlodipine 5 Mg Tablet PO 08/26/25 08:59 5 mg DAILY LLOYD Administration Ascorbic Acid 1,000 mg 08/26/24 09:00 08/26/24 09:08 Ascorbic Acid 500 Mg Tablet PO 08/26/25 08:59 1,000 mg DAILY LLOYD Administration Aspirin 81 mg 08/26/24 09:00 08/26/24 09:05 Aspirin 81 Mg Tab.Chew PO 08/26/25 08:59 81 mg DAILY LLOYD Administration Bisacodyl 10 mg 08/25/24 15:48 Bisacodyl 10 Mg Supp.Rect WI 08/25/25 15:47 DAILY PRN Constipation Carbidopa/Levodopa 1 tab 08/25/24 22:00 08/26/24 09:05 Carbidopa/Levodopa 10-100 Mg 1 Tab Tablet PO 08/25/25 21:59 1 tab TID LLOYD Administration Docusate Sodium 100 mg 08/25/24 15:48 Docusate 100 Mg Capsule PO 08/25/25 15:47 BID PRN Constipation Docusate Sodium 283 mg 08/25/24 15:48 Docusate Enema 283 Mg/5 Ml Enema WI 08/25/25 15:47 DAILY PRN Constipation Heparin Sodium (Porcine) 5,000 unit 08/25/24 21:00 08/26/24 09:06 Heparin 5,000 Unit/Ml Vial SUBCUT 08/25/25 20:59 5,000 unit Q12HR LLOYD Administration Hydralazine HCl 25 mg 08/25/24 21:00 08/26/24 09:08 Hydralazine 25 Mg Tablet PO 08/25/25 20:59 25 mg BID LLOYD Administration Meropenem 1 gm in 100 mls @ 200 mls/hr 08/25/24 20:00 08/26/24 08:55 Merrem IV 08/26/24 20:29 200 mls/hr Q12H LLOYD Administration Lactulose 30 gm 08/25/24 15:48 Lactulose 20 Gm/30 Ml Udc PO 08/25/25 15:47 DAILY PRN Constipation Multivitamins 1 tab 08/26/24 09:00 08/26/24 09:06 Multivitamin 1 Tab Tablet PO 08/26/25 08:59 1 tab DAILY LLOYD Administration Pantoprazole Sodium 40 mg 08/26/24 09:00 08/26/24 09:06 Pantoprazole 40 Mg Tablet.Dr PO 08/26/25 08:59 40 mg QAM LLOYD Administration Potassium Chloride 20 meq 08/25/24 21:00 08/26/24 09:08 Potassium Chloride Er 20 Meq Tab.Er.Prt PO 08/25/25 20:59 20 meq BID LLOYD Administration Quetiapine Fumarate 25 mg 08/25/24 15:48 Quetiapine Fumarate 25 Mg Tablet PO 08/25/25 20:59 BID PRN Agitation Quetiapine Fumarate 25 mg 08/25/24 22:00 08/25/24 21:27 Quetiapine Fumarate 25 Mg Tablet PO 08/25/25 21:59 25 mg QHS LLOYD Administration Rasagiline 1 mg 08/26/24 09:00 08/26/24 09:09 Rasagiline 1 Mg Tablet PO 08/26/25 08:59 1 mg DAILY LLOYD Administration Ropinirole HCl 0.25 mg 08/25/24 22:00 08/25/24 21:27 Ropinirole 0.25 Mg Tablet PO 08/25/25 21:59 0.25 mg QHS LLOYD Administration Sennosides 17.2 mg 08/26/24 12:00 Sennosides 8.6 Mg Tablet PO 08/26/25 11:59 DAILY@12 PRN If no BM in 2 days Sodium Chloride 0 ml 08/25/24 15:48 Sodium Chloride 0.9 % 10 Ml Syringe IV-PUSH 08/25/25 15:47 PRN PRN Flush Sodium Chloride 10 ml 08/25/24 22:00 08/26/24 05:41 Sodium Chloride 0.9 % 10 Ml Syringe IV-PUSH 08/25/25 21:59 10 ml Q8H LLOYD Administration Vitamin D 125 mcg 08/26/24 09:00 08/26/24 09:06 Cholecalciferol 125 Mcg (5,000 Units) Capsule PO 08/26/25 08:59 125 mcg DAILY LLOYD Administration Zinc Gluconate 50 mg 08/26/24 09:00 08/26/24 09:06 Zinc Gluconate 50 Mg Tablet PO 08/26/25 08:59 50 mg DAILY LLOYD Administration Exam Physical Exam Vital Signs: Temp Pulse Resp BP Pulse Ox O2 Del Method 98.2 F 73 16 157/93 H 95 Room Air 08/26/24 05:40 08/26/24 05:40 08/26/24 05:40 08/26/24 05:40 08/26/24 05:40 08/26/24 09:00 Narrative: CONST-thin, alert, awake, cooperative, comfortable HEAD - Normocephalic and atraumatic EENT?Sclera nonicteric and conjunctive are nonerythemic, moist oral mucosa, pharynx clear NECK?Supple, no cervical lymphadenopathy CARDIAC?normal rate, regular rhythm, normal S1 & S2. PULM?diminished without wheeze or rhonchi, RA, no accessory muscle use or cough noted ABD ? Soft. Bowel sounds are normal. No distention No tenderness EXTREM?no edema BLE calves nontender. Dressing to right upper arm intact SKIN?fair skin turgor, bruising to left upper extremity MS- MAEX4 spontaneously with equal with equal strength NEURO? A&Ox3 speech clear and tongue midline, equal facial symmetry no focal motor deficits PSYCH?Mood, affect and behavior appropriate Results - Hospitalist Consult Lab Results Labs: Laboratory Results - last 72 hr 08/26/24 05:02: Corrected WBC 8.9, Uncorrected WBC Count 8.9, RBC 4.19, Hgb 13.0, Hct 38.7, MCV 92.3, MCH 31.1, MCHC 33.7, RDW 14.9, Plt Count 254, MPV 9.9,Neut % (Auto) N/A, Lymph % (Auto) N/A, [place]% (Auto) N/A, Eos % (Auto) N/A, Baso% (Auto) N/A, Nucleat RBC Rel Count N/A, Neut # (Auto) N/A, Lymph # (Auto) N/A, [place] # (Auto) N/A, Eos # (Auto) N/A, Baso # (Auto) N/A, Lymphocytes % 28, Monocytes% 12 H, Eosinophils % 3, Basophils % 1, Myelocytes % 1 H, Segmented Neutrophils 53, Reactive Lymphocytes 2, Platelet Estimate Normal, Large Platelets Slight, Giant Platelets 1, Plt Morphology CommentN/A, RBC Morphology N/A, Poikilocytosis Moderate, Target Cells Slight, Ovalocytes Moderate, Crenated Cell Moderate, Acanthocytes (Spur) Slight, Schistocytes Slight, PHA Creatinine Clear 31.08, Sodium 144, Potassium 3.7, Chloride 108 H, Carbon Dioxide 29.5, Anion Gap 10.2, BUN 22, Creatinine 1.14, Est GFR (CKD-EPI) 49.274, Glucose 86, Calcium 11.0 H, Total Bilirubin 0.5, AST 15, ALT 4 L, Alkaline Phosphatase 107 H, Total Protein 6.0 L, Albumin 3.8, Globulin 2.2, Albumin/Globulin Ratio 1.7, Prealbumin 15.9 L, Slides for Path Review Cancelled Assessment & Plan Assessment/Plan (1) UTI (urinary tract infection): (2) Metabolic encephalopathy: (3) Impaired mobility and activities of daily living: Plan Acute Pseudomonas UTI Metabolic encephalopathy?resolved Impaired mobility and activities of daily living ?Plan of care for rehabilitation, PT/OT, DVT prophylaxis, bowel regimen per PM&Rteam. ?On meropenem IV 1 g x 3 doses ?On amantadine and Seroquel Chronic conditions: 1.HTN?on amlodipine, hydralazine, blood pressure uncontrolled, will increase amlodipine and continue to monitor 2.Parkinson's disease?carbidopa levodopa, rasagiline 3.RLS?ropinirole 4.Depression?on Rasagiline Documented By: Katarzyna Major APRN 08/26/24 1445 Signed By: 08/26/24 1546 08/28/24 1429 [facility]03-20-2025 [place] [address] Physiatry(Rehab) Progress Note Signed Patient: Judith Land MR#: [id number] : 1945 Acct:[id number] Age/Sex: 79 / F Adm Date: 5 Loc: Room: 7H3105-4 Type: ADM IN Attending Dr: Pa Neil MD Copies to: ~ Date of Service: 08/28/2024 Subjective Subjective Narrative: Ms. Land is a 79 year old female with a PMH of Parkinson disease, HTN, HLD, CAD, anxiety, RLS, chronic pain who presents to the rehab unit due to multifactorial functional decline in the setting of an acute UA with hospital course complicated by metabolic encephalopathy. She initially presented to the hospital due confusion for several days. She had been treated outpatient for about a month for a UTI without resolution of her infection. While hospitalized,she became acutely agitated requiring sedatives and 1:1. Gradually improved. Urine culture grew Pseudomonas for which she was started onMeropenem. OF note, the patient had a recent fall with fracture of the right arm and is in a splint. The patient lives with her daughter in a condo with 1 step to enter. Does not use an assistive device. This patient was seen and evaluated today. Family at bedside. She appears in no distress. Family had some questions today regarding patients recurrent UTIs. Gave advice including hydration, emptying bladder completely, proper hygiene. The patient is otherwise doing well. She does have a fracture ofthe radius and ulna on the right and family tells me that this was just recently repaired on August 12. They note that she was NWB post op but have not had follow up yet with Dr. Lyn. Interval history: This patient was seen and examined at bedside today. She appears in no distress.She denies chest pain, SOB, fever, chills. Requesting to come off telemetry which was added yesterday due to some concern for irregular HR. EKG demonstratedtachycardia with occasional premature supraventricular complexes. On exam, her HR is regular. No reported events on telemetry. Review of Systems Review of Systems All other systems reviewed & are negative unless noted below or in HPI Exam Physical Exam Vital Signs: Temp Pulse Resp BP Pulse Ox O2 Del Method 97.5 F L 88 18 151/76 H 94 L Room Air 08/28/24 05:00 08/28/24 05:00 08/28/24 05:00 08/28/24 05:57 08/28/24 05:00 08/28/24 09:47 Narrative: NAD. Sitting up in chair. Cachectic Extremities well perfused No respiratory distress RRR Abdomen soft, non distended DELMER. Tremor appreciated in all 4 extremities Speech is normal, fluent Objective Labs 08/26/24 05:02 08/26/24 05:02 Medications and Allergies Allergies and Active Meds: Allergies Sulfa (Sulfonamide Antibiotics) Allergy (Verified 08/20/24 19:40) Difficulty Breathing sulfamethoxazole (From Bactrim) Allergy (Verified 08/20/24 19:40) Difficulty Breathing trimethoprim (From Bactrim) Allergy (Verified 08/20/24 19:40) Difficulty Breathing Active Medications Generic Name Dose Route Start Last Admin Trade Name Erick PRN Reason Stop Dose Admin Acetaminophen 500 mg 08/25/24 15:48 Acetaminophen 500 Mg Tablet PO 08/25/25 15:47 Q4H PRN Pain Al Hydrox/Mg Hydrox/Simethicone 30 ml 08/25/24 15:48 Mag Hydrox/Al Hydrox/Simeth 30 Ml Udc PO 08/25/25 15:47 Q4H PRN Indigestion Alprazolam 1 mg 08/25/24 15:53 08/27/24 20:45 Alprazolam 0.5 Mg Tablet PO 1 mg QHS PRN Administration sleep Amantadine HCl 100 mg 08/25/24 22:00 08/28/24 08:39 Amantadine 100 Mg Capsule PO 08/25/25 21:59 100 mg TID LLOYD Administration Amlodipine Besylate 10 mg 08/27/24 09:00 08/28/24 08:39 Amlodipine 10 Mg Tablet PO 08/27/25 08:59 10 mg DAILY LLOYD Administration Ascorbic Acid 1,000 mg 08/26/24 09:00 08/28/24 08:39 Ascorbic Acid 500 Mg Tablet PO 08/26/25 08:59 1,000 mg DAILY LLOYD Administration Aspirin 81 mg 08/26/24 09:00 08/28/24 08:39 Aspirin 81 Mg Tab.Chew PO 08/26/25 08:59 81 mg DAILY LLOYD Administration Bisacodyl 10 mg 08/25/24 15:48 Bisacodyl 10 Mg Supp.Rect WI 08/25/25 15:47 DAILY PRN Constipation Carbidopa/Levodopa 1 tab 08/25/24 22:00 08/28/24 08:39 Carbidopa/Levodopa 10-100 Mg 1 Tab Tablet PO 08/25/25 21:59 1 tab TID LLOYD Administration Docusate Sodium 100 mg 08/25/24 15:48 Docusate 100 Mg Capsule PO 08/25/25 15:47 BID PRN Constipation Docusate Sodium 283 mg 08/25/24 15:48 Docusate Enema 283 Mg/5 Ml Enema WI 08/25/25 15:47 DAILY PRN Constipation Heparin Sodium (Porcine) 5,000 unit 08/25/24 21:00 08/28/24 08:39 Heparin 5,000 Unit/Ml Vial SUBCUT 08/25/25 20:59 5,000 unit Q12HR LLOYD Administration Hydralazine HCl 25 mg 08/25/24 21:00 08/28/24 08:39 Hydralazine 25 Mg Tablet PO 08/25/25 20:59 25 mg BID LLOYD Administration Lactulose 30 gm 08/25/24 15:48 Lactulose 20 Gm/30 Ml Udc PO 08/25/25 15:47 DAILY PRN Constipation Multivitamins 1 tab 08/26/24 09:00 08/28/24 08:39 Multivitamin 1 Tab Tablet PO 08/26/25 08:59 1 tab DAILY LLOYD Administration Pantoprazole Sodium 40 mg 08/26/24 09:00 08/28/24 08:39 Pantoprazole 40 Mg Tablet.Dr PO 08/26/25 08:59 40 mg QAM LLOYD Administration Potassium Chloride 20 meq 08/25/24 21:00 08/28/24 08:39 Potassium Chloride Er 20 Meq Tab.Er.Prt PO 08/25/25 20:59 20 meq BID LLOYD Administration Quetiapine Fumarate 25 mg 08/25/24 15:48 Quetiapine Fumarate 25 Mg Tablet PO 08/25/25 20:59 BID PRN Agitation Quetiapine Fumarate 25 mg 08/25/24 22:00 08/27/24 20:45 Quetiapine Fumarate 25 Mg Tablet PO 08/25/25 21:59 25 mg QHS LLOYD Administration Rasagiline 1 mg 08/26/24 09:00 08/28/24 08:38 Rasagiline 1 Mg Tablet PO 08/26/25 08:59 1 mg DAILY LLOYD Administration Ropinirole HCl 0.25 mg 08/25/24 22:00 08/27/24 20:45 Ropinirole 0.25 Mg Tablet PO 08/25/25 21:59 0.25 mg QHS LLOYD Administration Sennosides 17.2 mg 08/26/24 12:00 Sennosides 8.6 Mg Tablet PO 08/26/25 11:59 DAILY@12 PRN If no BM in 2 days Sodium Chloride 0 ml 08/25/24 15:48 08/27/24 05:40 Sodium Chloride 0.9 % 10 Ml Syringe IV-PUSH 03/17/26 15:47 10 ml PRN PRN Administration Flush Sodium Chloride 10 ml 08/25/24 22:00 08/28/24 05:26 Sodium Chloride 0.9 % 10 Ml Syringe IV-PUSH 08/25/25 21:59 10 ml Q8H LLOYD Administration Vitamin D 125 mcg 08/26/24 09:00 08/28/24 08:39 Cholecalciferol 125 Mcg (5,000 Units) Capsule PO 08/26/25 08:59 125 mcg DAILY LLOYD Administration Zinc Gluconate 50 mg 08/26/24 09:00 08/28/24 08:39 Zinc Gluconate 50 Mg Tablet PO 08/26/25 08:59 50 mg DAILY LLOYD Administration Assessment/Plan Assessment/Plan (1) Parkinsons disease: Qualifiers: Dyskinesia presence: without dyskinesia Fluctuating manifestations: without fluctuating manifestations Qualified Code(s): G20.A1 - Parkinson's disease without dyskinesia, without mention of fluctuations (2) Metabolic encephalopathy: (3) Acute UTI: (4) HTN (hypertension): (5) Anxiety: (6) Impaired mobility and activities of daily living: Plan This is a 79-year-old female who presents to [facility] due to multifactorial functional decline in the setting of acute UTI with metabolic encephalopathy in the setting ofParkinsons Disease. She has continued impaired mobility and impaired independence with ADLs and IADLs requiring PT/OT/DRY JANITOR 5-7 days/week 3 hours/day to maximize safety and independence with functionalability and self-care. -PT to improve patient's strength, endurance, bed mobility, transfers (sit- stand), standing balance, gait quality on level surfaces and stairs, coordination and functional ADL skills. We will also work to improve patient's safety awareness during transfers and ambulation. -OT for basic ADL retraining (bathing, dressing, toileting, continence, grooming, feeding, transferring), to increase activity tolerance and functional mobility to evaluate for adaptive assistive device. We will work to improve patient's endurance and educate patient on fall prevention and energy co nservation techniques-pacing strategies and proper breathing techniques duringfunctional tasks. -Patient education -Pressure ulcer prophylaxis; encourage mobilization, frequent postural changes, pressure-relief techniques -DVT prophylaxis -Encourage deep breathing exercise incentive spirometry. -Monitor bladder. Toileting schedule. Continue current bladder management, with scans as needed andCIC if needed. Start bowel care program every day to obtain continence, prevent ileus. -Maintain fall precautions -Gait and balance retraining -Provision of the necessary gait aids and functional adaptive equipment to enhance the patient's a functional taoism -Encourage deep breathing exercises and incentive spirometry -RD evaluation -Ensure adequate nutrition and hydration -Discharge planning. #. UPDATES -Rhythm regular today. Can DC Telemetry -NWB RUE per patients orthopedic surgeon -Completed meropenem. -Continue home medications for chronic medical conditions -PD: Sinemet 10-100 TID, Azilect daily, Requip 0.25 mg qhs, Amantadine 100 mgTID -HTN: Norvasc 5 mg daily, Hydralazine 25 mg BID -Anxiety: Xanax 1 mg qhs PRN -Seroquel 25 mg qhs for sleep/agitation. Monitor for worsening PD symptoms -Continue PT/OT/St -Hospitalist to assist with management of comorbid medical conditions #. Pain control: Tylenol PRN, #. Bowel and bladder: Continent of Bowel/bladder #. Skin: (pressure ulcer/surgical site) Pressure ulcer prophylaxis; encourage mobilization, frequent postural changes, pressure-relief techniques #. Sleep: Optimize sleep/wake cycle DVT prophylaxis: Heparin 5000 units q12hr Functional status: Impaired. Limited by pain, weakness Discharge planning: ELOS 1-2 weeks I spent 25 minutes for services, including [id number] encounter with the patient, discussion of the case, plan of care, and exam; and [id number] activities, such as reviewing pertinent integrity consultant documentation, recent therapynotes, laboratory and radiology studies, and discussion of case with care team including physician, nursing, caser, and therapists. More than 50 % of time was spent on patient/family counseling or coordination ofcare. Documented By: Pa Neil MD [id number] Signed By: 08/28/24 1242 [facility]03-19-2025 Progress note Author Didi Navarro [facility] Note Date/Time August 27, 2024 8:5 4pm [facility] [address] [place] [address] Physiatry(Rehab) Progress Note Signed Patient: Judith Land MR#: [id number] : 1945 Acct:[id number] Age/Sex: 79 / F Adm Date: 5 Loc: 5T Room: 6M4437-6 Type: ADM IN Attending Dr: Pa Neil MD Copies to: ~ Date of Service: 08/27/2024 Subjective Subjective Narrative: Ms. Land is a 79 year old female with a PMH of Parkinson disease, HTN, HLD, CAD, anxiety, RLS, chronic pain who presents to the rehab unit due to multifactorial functional decline in the setting of an acute UA with hospital course complicated by metabolic encephalopathy. She initially presented to the hospital due confusion for several days. She had been treated outpatient for about a month for a UTI without resolution of her infection. While hospitalized,she became acutely agitated requiring sedatives and 1:1. Gradually improved. Urine culture grew Pseudomonas for which she was started on Meropenem. OF note, the patient had a recent fall with fracture of the right arm and is in a splint. The patient lives with her daughter in a condo with 1 step to enter. Does not use an assistive device. This patient was seen and evaluated today. Family at bedside. She appears in no distress. Family had some questions today regarding patients recurrent UTIs. Gave advice including hydration, emptying bladder completely, proper hygiene. The patient is otherwise doing well. She does have a fracture of the radius and ulna on the right and family tells me that this was just recently repaired on August 12. They note that she was NWB post op but have not had follow up yet with Dr. Lyn. Interval history: This patient was seen and examined in her room while sitting up in a wheelchair,granddaughter is at the bedside. Patient is alert, pleasant, oriented x 3. Shehas no acute concerns or complaints. On assessment she has an irregular heart rhythm but denies any palpitations or other cardiopulmonary complaints. We did obtain an EKG but at the time that was completed, patient was in sinus rhythm with supraventricular complexes. She has been tachycardic on and off since admission. Denies any past history of tachyarrhythmias. We can monitor her symptoms for now, additional EKGs if warranted. Therapy jade she feels she is doing pretty good. She is walking for distances without an assistive device with SBA/CGA. Does have questions about weightbearing restrictions for the right upper extremity. Will get a hold of patient's orthopedic surgeon to clarify this. Review of Systems Review of Systems All other systems reviewed & are negative unless noted below or in HPI Exam Physical Exam Vital Signs: Temp Pulse Resp BP Pulse Ox O2 Del Method 97.2 F L 106 H 16 135/75 95 Room Air 08/27/24 14:43 08/27/24 14:43 08/27/24 14:43 08/27/24 14:43 08/27/24 14:43 08/27/24 14:43 Narrative: General: Awake, alert, oriented x3 HENT: Normal to inspection, normocephalic, atraumatic Eyes: PERRL, normal conjunctiva and sclera Neck: Normal ROM, normal visual inspection. Trachea midline. Cardio: Irregular heart rate and rhythm Respiratory: Clear to auscultation bilaterally. Normal respiratory effort. No respiratory distress. GI: Abdomen soft, nontender, nondistended, active bowel sounds x4 quadrants Neuro: CN II-XII intact. Strength 5/5, equal bilaterally Extremities: Upper extremity tremors. Right upper extremity cast intact. Normal perfusion to the fingertips. No complaints of numbness or tingling. No edema, erythema, cyanosis in upper or lower extremities Psych: Mood and affect appropriate. Normal speech. Objective Labs 08/26/24 05:02 08/26/24 05:02 Additional Results Results Comments: I reviewed clinical lab tests, radiology reports and obtained and summated medical records and have ordered follow up lab tests and imaging studies as needed for rehabilitation care. Medications and Allergies Allergies and Active Meds: Allergies Sulfa (Sulfonamide Antibiotics) Allergy (Verified 08/20/24 19:40) Difficulty Breathing sulfamethoxazole (From Bactrim) Allergy (Verified 08/20/24 19:40) Difficulty Breathing trimethoprim (From Bactrim) Allergy (Verified 08/20/24 19:40) Difficulty Breathing Active Medications Generic Name Dose Route Start Last Admin Trade Name Freq PRN Reason Stop Dose Admin Acetaminophen 500 mg 08/25/24 15:48 Acetaminophen 500 Mg Tablet PO 08/25/25 15:47 Q4H PRN Pain Al Hydrox/Mg Hydrox/Simethicone 30 ml 08/25/24 15:48 Mag Hydrox/Al Hydrox/Simeth 30 Ml Udc PO 08/25/25 15:47 Q4H PRN Indigestion Alprazolam 1 mg 08/25/24 15:53 08/26/24 21:46 Alprazolam 0.5 Mg Tablet PO 1 mg QHS PRN Administration sleep Amantadine HCl 100 mg 08/25/24 22:00 08/27/24 14:43 Amantadine 100 Mg Capsule PO 08/25/25 21:59 100 mg TID LLOYD Administration Amlodipine Besylate 10 mg 08/27/24 09:00 08/27/24 09:11 Amlodipine 10 Mg Tablet PO 08/27/25 08:59 10 mg DAILY LLOYD Administration Ascorbic Acid 1,000 mg 08/26/24 09:00 08/27/24 09:11 Ascorbic Acid 500 Mg Tablet PO 08/26/25 08:59 1,000 mg DAILY LLOYD Administration Aspirin 81 mg 08/26/24 09:00 08/27/24 09:11 Aspirin 81 Mg Tab.Chew PO 08/26/25 08:59 81 mg DAILY LLOYD Administration Bisacodyl 10 mg 08/25/24 15:48 Bisacodyl 10 Mg Supp.Rect WI 08/25/25 15:47 DAILY PRN Constipation Carbidopa/Levodopa 1 tab 08/25/24 22:00 08/27/24 14:43 Carbidopa/Levodopa 10-100 Mg 1 Tab Tablet PO 08/25/25 21:59 1 tab TID LLOYD Administration Docusate Sodium 100 mg 08/25/24 15:48 Docusate 100 Mg Capsule PO 08/25/25 15:47 BID PRN Constipation Docusate Sodium 283 mg 08/25/24 15:48 Docusate Enema 283 Mg/5 Ml Enema WI 08/25/25 15:47 DAILY PRN Constipation Heparin Sodium (Porcine) 5,000 unit 08/25/24 21:00 08/27/24 09:12 Heparin 5,000 Unit/Ml Vial SUBCUT 08/25/25 20:59 5,000 unit Q12HR LLOYD Administration Hydralazine HCl 25 mg 08/25/24 21:00 08/27/24 09:11 Hydralazine 25 Mg Tablet PO 08/25/25 20:59 25 mg BID LLOYD Administration Lactulose 30 gm 08/25/24 15:48 Lactulose 20 Gm/30 Ml Udc PO 08/25/25 15:47 DAILY PRN Constipation Multivitamins 1 tab 08/26/24 09:00 08/27/24 09:11 Multivitamin 1 Tab Tablet PO 08/26/25 08:59 1 tab DAILY LLOYD Administration Pantoprazole Sodium 40 mg 08/26/24 09:00 08/27/24 09:11 Pantoprazole 40 Mg Tablet.Dr PO 08/26/25 08:59 40 mg QAM LLOYD Administration Potassium Chloride 20 meq 08/25/24 21:00 08/27/24 09:11 Potassium Chloride Er 20 Meq Tab.Er.Prt PO 08/25/25 20:59 20 meq BID LLOYD Administration Quetiapine Fumarate 25 mg 08/25/24 15:48 Quetiapine Fumarate 25 Mg Tablet PO 08/25/25 20:59 BID PRN Agitation Quetiapine Fumarate 25 mg 08/25/24 22:00 08/26/24 21:46 Quetiapine Fumarate 25 Mg Tablet PO 08/25/25 21:59 25 mg QHS LLOYD Administration Rasagiline 1 mg 08/26/24 09:00 08/27/24 09:11 Rasagiline 1 Mg Tablet PO 08/26/25 08:59 1 mg DAILY LLOYD Administration Ropinirole HCl 0.25 mg 08/25/24 22:00 08/26/24 21:46 Ropinirole 0.25 Mg Tablet PO 08/25/25 21:59 0.25 mg QHS LLOYD Administration Sennosides 17.2 mg 08/26/24 12:00 Sennosides 8.6 Mg Tablet PO 08/26/25 11:59 DAILY@12 PRN If no BM in 2 days Sodium Chloride 0 ml 08/25/24 15:48 08/27/24 05:40 Sodium Chloride 0.9 % 10 Ml Syringe IV-PUSH 08/25/25 15:47 10 ml PRN PRN Administration Flush Sodium Chloride 10 ml 08/25/24 22:00 08/27/24 14:43 Sodium Chloride 0.9 % 10 Ml Syringe IV-PUSH 08/25/25 21:59 10 ml Q8H LLOYD Administration Vitamin D 125 mcg 08/26/24 09:00 08/27/24 09:11 Cholecalciferol 125 Mcg (5,000 Units) Capsule PO 08/26/25 08:59 125 mcg DAILY LLOYD Administration Zinc Gluconate 50 mg 08/26/24 09:00 08/27/24 09:11 Zinc Gluconate 50 Mg Tablet PO 08/26/25 08:59 50 mg DAILY LLOYD Administration Assessment/Plan Assessment/Plan (1) Parkinsons disease: Qualifiers: Dyskinesia presence: without dyskinesia Fluctuating manifestations: without fluctuating manifestations Qualified Code(s): G20.A1 - Parkinson's disease without dyskinesia, without mention of fluctuations (2) Metabolic encephalopathy: (3) Acute UTI: (4) HTN (hypertension): (5) Anxiety: (6) Impaired mobility and activities of daily living: Plan This is a 79-year-old female who presents to [facility] IRF due to multifactorial functional decline in the setting of acute UTI with metabolic encephalopathy in the setting of Parkinsons Disease. She has continued impaired mobility and impaired independence with ADLs and IADLs requiring PT/OT/DRY JANITOR 5-7 days/week 3 hours/day to maximize safety and independence with functional ability and self-care. -PT to improve patient's strength, endurance, bed mobility, transfers (sit- stand), standing balance, gait quality on level surfaces and stairs, coordination and functional ADL skills. We will also work to improve patient's safety awareness during transfers and ambulation. -OT for basic ADL retraining (bathing, dressing, toileting, continence, grooming, feeding, transferring), to increase activity tolerance and functional mobility to evaluate for adaptive assistive device. We will work to improve patient's endurance and educate patient on fall prevention and energy conservation techniques-pacing strategies and proper breathing techniques duringfunctional tasks. -Patient education -Pressure ulcer prophylaxis; encourage mobilization, frequent postural changes, pressure-relief techniques -DVT prophylaxis -Encourage deep breathing exercise incentive spirometry. -Monitor bladder. Toileting schedule. Continue current bladder management, with scans as needed and CIC if needed. Start bowel care program every day to obtain continence, prevent ileus. -Maintain fall precautions -Gait and balance retraining -Provision of the necessary gait aids and functional adaptive equipment to enhance the patient's a functional taoism -Encourage deep breathing exercises and incentive spirometry -RD evaluation -Ensure adequate nutrition and hydration -Discharge planning. #. UPDATES -Irregular heart rhythm noted on assessment today. EKG demonstrates sinus tachycardia with premature supraventricular complexes. Patient reports no symptoms associated with this. Monitor for now, obtain an additional EKG if shedevelops any new cardiopulmonary symptoms. -Completed meropenem. -Continue home medications for chronic medical conditions -PD: Sinemet 10-100 TID, Azilect daily, Requip 0.25 mg qhs, Amantadine 100 mgTID -HTN: Norvasc 5 mg daily, Hydralazine 25 mg BID -Anxiety: Xanax 1 mg qhs PRN -Seroquel 25 mg qhs for sleep/agitation. Monitor for worsening PD symptoms -Continue PT/OT/St -Hospitalist to assist with management of comorbid medical conditions #. Pain control: Tylenol PRN, #. Bowel and bladder: Continent of Bowel/bladder #. Skin: (pressure ulcer/surgical site) Pressure ulcer prophylaxis; encourage mobilization, frequent postural changes, pressure-relief techniques #. Sleep: Optimize sleep/wake cycle DVT prophylaxis: Heparin 5000 units q12hr Functional status: Impaired. Limited by pain, weakness Discharge planning: ELOS 1-2 weeks I spent 25 minutes for services, including [id number] encounter with the patient, discussion of the case, plan of care, and exam; and [id number] activities, such as reviewing pertinent integrity consultant documentation, recent therapynotes, laboratory and radiology studies, and discussion of case with care team including physician, nursing, caser, and therapists. More than 50 % of time was spent on patient/family counseling or coordination ofcare. <Statement entered by Pa Neil MD - 08/27/24 20:54> This documentation has been reviewed and approved. Documented By: Didi Navarro APRN 08/27/24 1 203 Signed By: <Electronically signed by MIGUEL Navarro> 08/27/24 1603 <Electronically signed by Pa Neil MD> 08/27/242053 [facility] Work Phone: [phone]) 524-451203-19-2025 [place] [address] Physiatry(Rehab) Progress Note Signed Patient: Judith Land MR#: [id number] : 1945 Acct:[id number] Age/Sex: 79 / F Adm Date: 5 Loc: Room: [address] [place] [address] Type: ADM IN Attending Dr: Pa Neil MD Copies to: ~ Date of Service: 08/27/2024 Subjective Subjective Narrative: Ms. Land is a 79 year old female with a PMH of Parkinson disease, HTN, HLD, CAD, anxiety, RLS, chronic pain who presents to the rehab unit due to multifactorial functional decline in the setting of an acute UA with hospital course complicated by metabolic encephalopathy. She initially presented to the hospital due confusion for several days. She had been treated outpatient for about a month for a UTI without resolution of her infection. While hospitalized,she became acutely agitated requiring sedatives and 1:1. Gradually improved. Urine culture grew Pseudomonas for which she was started onMeropenem. OF note, the patient had a recent fall with fracture of the right arm and is in a splint. The patient lives with her daughter in a condo with 1 step to enter. Does not use an assistive device. This patient was seen and evaluated today. Family at bedside. She appears in no distress. Family had some questions today regarding patients recurrent UTIs. Gave advice including hydration, emptying bladder completely, proper hygiene. The patient is otherwise doing well. She does have a fracture ofthe radius and ulna on the right and family tells me that this was just recently repaired on August 12. They note that she was NWB post op but have not had follow up yet with Dr. Lyn. Interval history: This patient was seen and examined in her room while sitting up in a wheelchair,granddaughter is atthe bedside. Patient is alert, pleasant, oriented x 3. Shehas no acute concerns or complaints. On assessment she has an irregular heart rhythm but denies any palpitations or other cardiopulmonary complaints. We did obtain an EKG but at the time that was completed, patient was in sinus rhythm with supraventricular complexes. She has been tachycardic on and off since admission. Denies any past history of tachyarrhythmias. We can monitor her symptoms for now, additional EKGs if warranted. Therapy jade she feels she is doing pretty good. She is walking for distances without an assistive device with SBA/CGA. Does have questions about weightbearing restrictions for the right upper extremity. Will get a hold of patient's orthopedic surgeon to clarify this. Review of Systems Review of Systems All other systems reviewed & are negative unless noted below or in HPI Exam Physical Exam Vital Signs: Temp Pulse Resp BP Pulse Ox O2 Del Method 97.2 F L 106 H 16 135/75 95 Room Air 08/27/24 14:43 08/27/24 14:43 08/27/24 14:43 08/27/24 14:43 08/27/24 14:43 08/27/24 14:43 Narrative: General: Awake, alert, oriented x3 HENT: Normal to inspection, normocephalic, atraumatic Eyes: PERRL, normal conjunctiva and sclera Neck: Normal ROM, normal visual inspection. Trachea midline. Cardio: Irregular heart rate and rhythm Respiratory: Clear to auscultation bilaterally. Normal respiratory effort. No respiratory distress. GI: Abdomen soft, nontender, nondistended, active bowel sounds x4 quadrants Neuro: CN II-XII intact. Strength 5/5, equal bilaterally Extremities: Upper extremity tremors. Right upper extremity cast intact. Normal perfusion to the fingertips. No complaints of numbness or tingling. No edema, erythema, cyanosis in upper or lower extremities Psych: Mood and affect appropriate. Normal speech. Objective Labs 08/26/24 05:02 08/26/24 05:02 Additional Results Results Comments: I reviewed clinical lab tests, radiology reports and obtained and summated medical records and haveordered follow up lab tests and imaging studies as needed for rehabilitation care. Medications and Allergies Allergies and Active Meds: Allergies Sulfa (Sulfonamide Antibiotics) Allergy (Verified 08/20/24 19:40) Difficulty Breathing sulfamethoxazole (From Bactrim) Allergy (Verified 08/20/24 19:40) Difficulty Breathing trimethoprim (From Bactrim) Allergy (Verified 08/20/24 19:40) Difficulty Breathing Active Medications Generic Name Dose Route Start Last Admin Trade Name Freq PRN Reason Stop Dose Admin Acetaminophen 500 mg 08/25/24 15:48 Acetaminophen 500 Mg Tablet PO 08/25/25 15:47 Q4H PRN Pain Al Hydrox/Mg Hydrox/Simethicone 30 ml 08/25/24 15:48 Mag Hydrox/Al Hydrox/Simeth 30 Ml Udc PO 08/25/25 15:47 Q4H PRN Indigestion Alprazolam 1 mg 08/25/24 15:53 08/26/24 21:46 Alprazolam 0.5 Mg Tablet PO 1 mg QHS PRN Administration sleep Amantadine HCl 100 mg 08/25/24 22:00 08/27/24 14:43 Amantadine 100 Mg Capsule PO 08/25/25 21:59 100 mg TID LLOYD Administration Amlodipine Besylate 10 mg 08/27/24 09:00 08/27/24 09:11 Amlodipine 10 Mg Tablet PO 08/27/25 08:59 10 mg DAILY LLOYD Administration Ascorbic Acid 1,000 mg 08/26/24 09:00 08/27/24 09:11 Ascorbic Acid 500 Mg Tablet PO 08/26/25 08:59 1,000 mg DAILY LLOYD Administration Aspirin 81 mg 08/26/24 09:00 08/27/24 09:11 Aspirin 81 Mg Tab.Chew PO 08/26/25 08:59 81 mg DAILY LLOYD Administration Bisacodyl 10 mg 08/25/24 15:48 Bisacodyl 10 Mg Supp.Rect WI 08/25/25 15:47 DAILY PRN Constipation Carbidopa/Levodopa 1 tab 08/25/24 22:00 08/27/24 14:43 Carbidopa/Levodopa 10-100 Mg 1 Tab Tablet PO 08/25/25 21:59 1 tab TID LLOYD Administration Docusate Sodium 100 mg 08/25/24 15:48 Docusate 100 Mg Capsule PO 08/25/25 15:47 BID PRN Constipation Docusate Sodium 283 mg 08/25/24 15:48 Docusate Enema 283 Mg/5 Ml Enema WI 08/25/25 15:47 DAILY PRN Constipation Heparin Sodium (Porcine) 5,000 unit 08/25/24 21:00 08/27/24 09:12 Heparin 5,000 Unit/Ml Vial SUBCUT 08/25/25 20:59 5,000 unit Q12HR LLOYD Administration Hydralazine HCl 25 mg 08/25/24 21:00 08/27/24 09:11 Hydralazine 25 Mg Tablet PO 08/25/25 20:59 25 mg BID LLOYD Administration Lactulose 30 gm 08/25/24 15:48 Lactulose 20 Gm/30 Ml Udc PO 08/25/25 15:47 DAILY PRN Constipation Multivitamins 1 tab 08/26/24 09:00 08/27/24 09:11 Multivitamin 1 Tab Tablet PO 08/26/25 08:59 1 tab DAILY LLOYD Administration Pantoprazole Sodium 40 mg 08/26/24 09:00 08/27/24 09:11 Pantoprazole 40 Mg Tablet.Dr PO 08/26/25 08:59 40 mg QAM LLOYD Administration Potassium Chloride 20 meq 08/25/24 21:00 08/27/24 09:11 Potassium Chloride Er 20 Meq Tab.Er.Prt PO 08/25/25 20:59 20 meq BID LLOYD Administration Quetiapine Fumarate 25 mg 08/25/24 15:48 Quetiapine Fumarate 25 Mg Tablet PO 08/25/25 20:59 BID PRN Agitation Quetiapine Fumarate 25 mg 08/25/24 22:00 08/26/24 21:46 Quetiapine Fumarate 25 Mg Tablet PO 08/25/25 21:59 25 mg QHS LLOYD Administration Rasagiline 1 mg 08/26/24 09:00 08/27/24 09:11 Rasagiline 1 Mg Tablet PO 08/26/25 08:59 1 mg DAILY LLOYD Administration Ropinirole HCl 0.25 mg 08/25/24 22:00 08/26/24 21:46 Ropinirole 0.25 Mg Tablet PO 08/25/25 21:59 0.25 mg QHS LLOYD Administration Sennosides 17.2 mg 08/26/24 12:00 Sennosides 8.6 Mg Tablet PO 08/26/25 11:59 DAILY@12 PRN If no BM in 2 days Sodium Chloride 0 ml 08/25/24 15:48 08/27/24 05:40 Sodium Chloride 0.9 % 10 Ml Syringe IV-PUSH 08/25/25 15:47 10 ml PRN PRN Administration Flush Sodium Chloride 10 ml 08/25/24 22:00 08/27/24 14:43 Sodium Chloride 0.9 % 10 Ml Syringe IV-PUSH 08/25/25 21:59 10 ml Q8H LLOYD Administration Vitamin D 125 mcg 08/26/24 09:00 08/27/24 09:11 Cholecalciferol 125 Mcg (5,000 Units) Capsule PO 08/26/25 08:59 125 mcg DAILY LLOYD Administration Zinc Gluconate 50 mg 08/26/24 09:00 08/27/24 09:11 Zinc Gluconate 50 Mg Tablet PO 08/26/25 08:59 50 mg DAILY LLOYD Administration Assessment/Plan Assessment/Plan (1) Parkinsons disease: Qualifiers: Dyskinesia presence: without dyskinesia Fluctuating manifestations: without fluctuating manifestations Qualified Code(s): G20.A1 - Parkinson's disease without dyskinesia, without mention of fluctuations (2) Metabolic encephalopathy: (3) Acute UTI: (4) HTN (hypertension): (5) Anxiety: (6) Impaired mobility and activities of daily living: Plan This is a 79-year-old female who presents to [facility] IR[facility] due to multifactorial functional decline in the setting of acute UTI with metabolic encephalopathy in the setting ofParkinsons Disease. She has continued impaired mobility and impaired independence with ADLs and IADLs requiring PT/OT/DRY JANITOR 5-7 days/week 3 hours/day to maximize safety and independence with functionalability and self-care. -PT to improve patient's strength, endurance, bed mobility, transfers (sit- stand), standing balance, gait quality on level surfaces and stairs, coordination and functional ADL skills. We will also work to improve patient's safety awareness during transfers and ambulation. -OT for basic ADL retraining (bathing, dressing, toileting, continence, grooming, feeding, transferring), to increase activity tolerance and functional mobility to evaluate for adaptive assistive device. We will work to improve patient's endurance and educate patient on fall prevention and energy co nservation techniques-pacing strategies and proper breathing techniques duringfunctional tasks. -Patient education -Pressure ulcer prophylaxis; encourage mobilization, frequent postural changes, pressure-relief techniques -DVT prophylaxis -Encourage deep breathing exercise incentive spirometry. -Monitor bladder. Toileting schedule. Continue current bladder management, with scans as needed andCIC if needed. Start bowel care program every day to obtain continence, prevent ileus. -Maintain fall precautions -Gait and balance retraining -Provision of the necessary gait aids and functional adaptive equipment to enhance the patient's a functional taoism -Encourage deep breathing exercises and incentive spirometry -RD evaluation -Ensure adequate nutrition and hydration -Discharge planning. #. UPDATES -Irregular heart rhythm noted on assessment today. EKG demonstrates sinus tachycardia with premature supraventricular complexes. Patient reports no symptoms associated with this. Monitor for now, obtain an additional EKG if shedevelops any new cardiopulmonary symptoms. -Completed meropenem. -Continue home medications for chronic medical conditions -PD: Sinemet 10-100 TID, Azilect daily, Requip 0.25 mg qhs, Amantadine 100 mgTID -HTN: Norvasc 5 mg daily, Hydralazine 25 mg BID -Anxiety: Xanax 1 mg qhs PRN -Seroquel 25 mg qhs for sleep/agitation. Monitor for worsening PD symptoms -Continue PT/OT/St -Hospitalist to assist with management of comorbid medical conditions #. Pain control: Tylenol PRN, #. Bowel and bladder: Continent of Bowel/bladder #. Skin: (pressure ulcer/surgical site) Pressure ulcer prophylaxis; encourage mobilization, frequent postural changes, pressure-relief techniques #. Sleep: Optimize sleep/wake cycle DVT prophylaxis: Heparin 5000 units q12hr Functional status: Impaired. Limited by pain, weakness Discharge planning: ELOS 1-2 weeks I spent 25 minutes for services, including [id number] encounter with the patient, discussion of the case, plan of care, and exam; and [id number] activities, such as reviewing pertinent integrity consultant documentation, recent therapynotes, laboratory and radiology studies, and discussion of case with care team including physician, nursing, caser, and therapists. More than 50 % of time was spent on patient/family counseling or coordination ofcare. This documentation has been reviewed and approved. Documented By: Didi Navarro APRN 08/27/24 1 203 Signed By: 08/27/24 1603 08/27/242053 [facility]03-18-2025 History and physical note Author Pa Neil [facility] Note Date/Time August 26, 2024 12: 58pm [facility] [address] [place] [address] Physiatry (Rehab) H&P Signed Patient: Judith Land MR#: [id number] : 1945 Acct:[id number] Age/Sex: 79 / F Adm Date: 5 Loc: Room: [address] [place] [address] Type: ADM IN Attending Dr: Pa Neil MD Copies to: MD Kavon Champion MD~ Date of Service: 08/26/2024 HPI The patient was seen and examined on: 08/26/24 Chief complaint: Weakness History of Present Illness: Ms. Land is a 79 year old female with a PMH of Parkinson disease, HTN, HLD, CAD, anxiety, RLS, chronic pain who presents to the rehab unit due to multifactorial functional decline in the setting of an acute UA with hospital course complicated by metabolic encephalopathy. She initially presented to the hospital due confusion for several days. She had been treated outpatient for about a month for a UTI without resolution of her infection. While hospitalized,she became acutely agitated requiring sedatives and 1:1. Gradually improved. Urine culture grew Pseudomonas for which she was started on Meropenem. OF note, the patient had a recent fall with fracture of the right arm and is in a splint. The patient lives with her daughter in a condo with 1 step to enter. Does not use an assistive device. This patient was seen and evaluated today. Family at bedside. She appears in no distress. Family had some questions today regarding patients recurrent UTIs. Gave advice including hydration, emptying bladder completely, proper hygiene. The patient is otherwise doing well. She does have a fracture of the radius and ulna on the right and family tells me that this was just recently repaired on August 12. They note that she was NWB post op but have not had follow up yet with Dr. Lyn. The patient lives with her family. She reports that she was doing really well prior to developing the UTI but her Parkinsons symptoms have been much worse over the past month. 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 Family History Mother Stroke Father Cancer Lung Son Cancer Lymphoma Social History Smoking Status: Former smoker Tobacco Type: cigarettes Substance Use Type: None Review of Systems Review of Systems All other systems reviewed & are negative unless noted below or in HPI Meds Medications and Allergies Allergies Sulfa (Sulfonamide Antibiotics) Allergy (Verified 08/20/24 19:40) Difficulty Breathing sulfamethoxazole (From Bactrim) Allergy (Verified 08/20/24 19:40) Difficulty Breathing trimethoprim (From Bactrim) Allergy (Verified 08/20/24 19:40) Difficulty Breathing Home and Active Meds: Home Medications alprazolam 1 mg tablet (Xanax) 1 mg PO QHS PRN sleep 08/20/24 [History Confirmed 08/25/24] ascorbic acid (vitamin C) 1,000 mg capsule 1 g PO DAILY 08/21/24 [History Confirmed 08/25/24] aspirin 81 mg chewable tablet 81 mg PO DAILY 08/21/24 [History Confirmed 08/25/24] carbidopa 10 mg-levodopa 100 mg tablet (Sinemet) 1 tab PO TID 08/21/24 [History Confirmed 08/25/24] cholecalciferol (vitamin D3) 125 mcg (5,000 unit) capsule 125 mcg PO DAILY 08/21/24 [History Confirmed 08/25/24] lutein 25 mg-zeaxanthin 5 mg capsule 1 cap PO DAILY 08/21/24 [History Confirmed 08/25/24] multivitamin 1 tab PO DAILY 08/21/24 [History Confirmed 08/25/24] pantoprazole 40 mg tablet,delayed release 40 mg PO QAM 08/21/24 [History Confirmed 08/25/24] potassium chloride 20 mEq tablet,extended release(part/cryst) (Klor-Con M) 20 meq PO BID 08/21/24 [History Confirmed 08/25/24] rasagiline 1 mg tablet 1 mg PO DAILY 08/21/24 [History Confirmed 08/25/24] zinc gluconate 50 mg tablet 50 mg PO DAILY 08/21/24 [History Confirmed 08/25/24] amantadine HCl 100 mg tablet 100 mg PO TID 08/24/24 [History Confirmed 08/25/24] amlodipine 5 mg tablet 5 mg PO DAILY #0 tabs 08/25/24 [Rx Confirmed 08/25/24] hydralazine 25 mg tablet 25 mg PO BID #60 tabs 08/25/24 [Rx Confirmed 08/25/24] meropenem 1 gram intravenous solution 1 g IV Q12H 1 day #0 ea 08/25/24 [Rx Confirmed 08/25/24] quetiapine 25 mg tablet 25 mg PO QHS #0 tabs 08/25/24 [Rx Confirmed 08/25/24] ropinirole 0.25 mg tablet 0.25 mg PO QHS #0 tabs 08/25/24 [Rx Confirmed 08/25/24] Active Medications Acetaminophen (Acetaminophen 500 Mg Tablet) 500 mg PO Q4H PRN PRN Reason: Pain Stop: 08/25/25 15:47 Al Hydrox/Mg Hydrox/Simethicone (Mag Hydrox/Al Hydrox/Simeth 30 Ml Udc) 30 ml PO Q4H PRN PRN Reason: Indigestion Stop: 08/25/25 15:47 Alprazolam (Alprazolam 0.5 Mg Tablet) 1 mg PO QHS PRN PRN Reason: sleep Last Admin: 08/25/24 21:26 Dose: 1 mg Amantadine HCl (Amantadine 100 Mg Capsule) 100 mg PO TID [facility] Stop: 08/25/25 21:59 Last Admin: 08/26/24 09:05 Dose: 100 mg Amlodipine Besylate (Amlodipine 5 Mg Tablet) 5 mg PO DAILY [facility] Stop: 08/26/25 08:59 Last Admin: 08/26/24 09:08 Dose: 5 mg Ascorbic Acid (Ascorbic Acid 500 Mg Tablet) 1,000 mg PO DAILY [facility] Stop: 08/26/25 08:59 Last Admin: 08/26/24 09:08 Dose: 1,000 mg Aspirin (Aspirin 81 Mg Tab.Chew) 81 mg PO DAILY [facility] Stop: 08/26/25 08:59 Last Admin: 08/26/24 09:05 Dose: 81 mg Bisacodyl (Bisacodyl 10 Mg Supp.Rect) 10 mg WI DAILY PRN PRN Reason: Constipation Stop: 08/25/25 15:47 Carbidopa/Levodopa (Carbidopa/Levodopa 10-100 Mg 1 Tab Tablet) 1 tab PO TID [facility] Stop: 08/25/25 21:59 Last Admin: 08/26/24 09:05 Dose: 1 tab Docusate Sodium (Docusate 100 Mg Capsule) 100 mg PO BID PRN PRN Reason: Constipation Stop: 08/25/25 15:47 Docusate Sodium (Docusate Enema 283 Mg/5 Ml Enema) 283 mg WI DAILY PRN PRN Reason: Constipation Stop: 08/25/25 15:47 Heparin Sodium (Porcine) (Heparin 5,000 Unit/Ml Vial) 5,000 unit SUBCUT Q12HR [facility] Stop: 08/25/25 20:59 Last Admin: 08/26/24 09:06 Dose: 5,000 unit Hydralazine HCl (Hydralazine 25 Mg Tablet) 25 mg PO BID [facility] Stop: 08/25/25 20:59 Last Admin: 08/26/24 09:08 Dose: 25 mg Meropenem (Merrem) 1 gm in 100 mls @ 200 mls/hr IV Q12H [facility] Stop: 08/26/24 20:29 Last Admin: 08/26/24 08:55 Dose: 200 mls/hr Lactulose (Lactulose 20 Gm/30 Ml Udc) 30 gm PO DAILY PRN PRN Reason: Constipation Stop: 08/25/25 15:47 Multivitamins (Multivitamin 1 Tab Tablet) 1 tab PO DAILY [facility] Stop: 08/26/25 08:59 Last Admin: 08/26/24 09:06 Dose: 1 tab Pantoprazole Sodium (Pantoprazole 40 Mg Tablet.Dr) [facility] Stop: 08/26/25 08:59 Last Admin: 08/26/24 09:06 Dose: 40 mg Potassium Chloride (Potassium Chloride Er 20 Meq Tab.Er.Prt) 20 meq PO BID [facility] Stop: 08/25/25 20:59 Last Admin: 08/26/24 09:08 Dose: 20 meq Quetiapine Fumarate (Quetiapine Fumarate 25 Mg Tablet) 25 mg PO BID PRN PRN Reason: Agitation Stop: 08/25/25 20:59 Quetiapine Fumarate (Quetiapine Fumarate 25 Mg Tablet) 25 mg PO QHS [facility] Stop: 08/25/25 21:59 Last Admin: 08/25/24 21:27 Dose: 25 mg Rasagiline (Rasagiline 1 Mg Tablet) 1 mg PO DAILY [facility] Stop: 08/26/25 08:59 Last Admin: 08/26/24 09:09 Dose: 1 mg Ropinirole HCl (Ropinirole 0.25 Mg Tablet) 0.25 mg PO QHS [facility] Stop: 08/25/25 21:59 Last Admin: 08/25/24 21:27 Dose: 0.25 mg Sennosides (Sennosides 8.6 Mg Tablet) 17.2 mg PO DAILY@12 PRN PRN Reason: If no BM in 2 days Stop: 08/26/25 11:59 Sodium Chloride (Sodium Chloride 0.9 % 10 Ml Syringe) 0 ml IV-PUSH PRN PRN PRN Reason: Flush Stop: 08/25/25 15:47 Sodium Chloride (Sodium Chloride 0.9 % 10 Ml Syringe) 10 ml IV-PUSH Q8H [facility] Stop: 08/25/25 21:59 Last Admin: 08/26/24 05:41 Dose: 10 ml Vitamin D (Cholecalciferol 125 Mcg (5,000 Units) Capsule) 125 mcg PO DAILY [facility] Stop: 08/26/25 08:59 Last Admin: 08/26/24 09:06 Dose: 125 mcg Zinc Gluconate (Zinc Gluconate 50 Mg Tablet) 50 mg PO DAILY [facility] Stop: 08/26/25 08:59 Last Admin: 08/26/24 09:06 Dose: 50 mg Exam Physical Exam Vital Signs: Temp Pulse Resp BP Pulse Ox O2 Del Method 98.2 F 73 16 157/93 H 95 Room Air 08/26/24 05:40 08/26/24 05:40 08/26/24 05:40 08/26/24 05:40 08/26/24 05:40 08/26/24 05:40 Narrative: NAD. Sitting up in chair. Cachectic Extremities well perfused No respiratory distress Abdomen soft, non distended DELMER. Tremor appreciated in all 4 extremities Speech is normal, fluent Results - Phys. Rehab Labs Labs: Laboratory Results - last 24 hr 08/26/24 05:02 Corrected WBC 8.9 Uncorrected WBC Count 8.9 RBC 4.19 Hgb 13.0 Hct 38.7 MCV 92.3 MCH 31.1 MCHC 33.7 RDW 14.9 Plt Count 254 MPV 9.9 Neut % (Auto) N/A Lymph % (Auto) N/A [place] % (Auto) N/A Eos % (Auto) N/A Baso % (Auto) N/A Nucleat RBC Rel Count N/A Neut # (Auto) N/A Lymph # (Auto) N/A [place] # (Auto) N/A Eos # (Auto) N/A Baso # (Auto) N/A Lymphocytes % 28 Monocytes % 12 H Eosinophils % 3 Basophils % 1 Myelocytes % 1 H Segmented Neutrophils 53 Reactive Lymphocytes 2 Platelet Estimate Normal Large Platelets Slight Giant Platelets 1 Plt Morphology Comment N/A RBC Morphology N/A Poikilocytosis Moderate Target Cells Slight Ovalocytes Moderate Crenated Cell Moderate Acanthocytes (Spur) Slight Schistocytes Slight PHA Creatinine Clear 31.08 Sodium 144 Potassium 3.7 Chloride 108 H Carbon Dioxide 29.5 Anion Gap 10.2 BUN 22 Creatinine 1.14 Est GFR (CKD-EPI) 49.274 Glucose 86 Calcium 11.0 H Total Bilirubin 0.5 AST 15 ALT 4 L Alkaline Phosphatase 107 H Total Protein 6.0 L Albumin 3.8 Globulin 2.2 Albumin/Globulin Ratio 1.7 Prealbumin 15.9 L Slides for Path Review Cancelled Additional Results Results Comment: I reviewed clinical lab tests, radiology reports and obtained and summated medical records and have ordered follow up lab tests and imaging studies as needed for rehabilitation care. Individualized Plan of Care Individualized Plan of Care Plan of Care: Individualized Overall Plan of Care: Admit Date/Time: 08/25/24 Expected LOS: 2 weeks Expected Discharge Destination: Home Rehabilitation C: 3.2 Primary Diagnosis: Psdeuoexacerbation of Parkinsons Disease 2/2 UTI To have patient become more independent and to return home. Medical/ Functional Prognosis: Good Anticipated Functional Outcomes/Goals and Interventions: -Therapy Functional Outcome/Goal: Mobility/Locomotion: Patient likely to be CGA with ambulation with assistive device. Anticipated interventions: Physician management, PT, OT, Dietitian, Rehab Nursing - Therapy Functional Outcome/Goal: Self Care: Patient likely to be functionally CGA for activities of daily living using assistive / adaptive equipment as needed. Anticipated interventions: Physician management, PT, OT, Dietitian, Rehab Nursing - Therapy Functional Outcome/Goal: Bladder/Bowel Management: Patient likely to be CGA with bladder care and independent with bowel care. Anticipated interventions: Physician management, PT, OT, Dietitian, Rehab Nursing -Therapy Functional Outcome/Goal: Communication/Cognition: Patient will be able to communicate fully and be safe cognitively. Anticipated interventions: Physician management, PT, OT,DRY JANITOR Dietitian, Rehab Nursing -Therapy Functional Outcome/Goal: Patient will be CGA for bed mobility and transfers Anticipated interventions: Physician management, PT, OT, Dietitian, Rehab Nursing -Therapy Functional Outcome/Goal: Patient will improve endurance to be able to tolerate all daily self care activities and avocational activities. Anticipated interventions: Physician management, PT, OT, Nutrition, Rehab Nursing -Therapy Functional Outcome/Goal: Patient will understand and assimilate / integrate education regarding management of their medical conditions to maintainhealth and wellbeing. Anticipated interventions: Physician management, PT, OT, Dietitian, Rehab Nursing Required Therapy PT: 1 hour per day at least 5 days per week with additional therapy on as neededbasis. Comments: PT to improve pt's strength, endurance, bed mobility, transfers (sit-stand), standing balance, gait quality on level surfaces and stairs, coordination and functional ADL skills. Will also work to improve pt's safety awareness during transfers and ambulation. OT: 1 hour per day at least 5 days per week with additional therapy on as neededbasis. Comments: OT for basic ADL re-training (bathing, dressing, toileting, continence, grooming, feeding, transferring), to increase activity tolerance andfunctional mobility and to evaluate for adaptive and assistive devices. Will work to improve pt's endurance and educate pt on fall prevention and energy conservation techniques-pacing strategies and proper breathing techniques duringfunctional tasks. Speech/Language - 1 hour per day at least 5 days per week with additional therapy on as needed basis. Comments: DRY JANITOR to evaluate and treat patient?s cognition, language and communication skills, assess swallow function. Other: Dietitian, Rehab nursing, Wound, P&O, Neuropsychology as needed RATIONALE FOR IRF ADMISSION: Patient has both medical and functional complexities that require 24 hour daily monitoring and intervention from Commercial [employer] as well as other consulting physicians including internal medicine as well as 24 hour daily veneer marker nursing - for medical safe / optimal management. Patient requires interdisciplinary therapy team rehabilitation care including OT, PT, DRY JANITOR, SW, Psychology, Rehab Nursing, requires and can tolerate at least 3 hours of daily OT and PT therapy at least 5 days weekly. The following medical conditions significantly impact the rehabilitation process and are being addressed daily and can not be managed at home or in a lesser intense medical setting: Refer to above problem oriented plan of care Assessment/Plan (1) Parkinsons disease: Qualifiers: Dyskinesia presence: without dyskinesia Fluctuating manifestations: without fluctuating manifestations Qualified Code(s): G20.A1 - Parkinson's disease without dyskinesia, without mention of fluctuations (2) Metabolic encephalopathy: (3) Acute UTI: (4) HTN (hypertension): (5) Anxiety: (6) Impaired mobility and activities of daily living: Plan This is a 79-year-old female who presents to [facility] IRF due to multifactorial functional decline in the setting of acute UTI with metabolic encephalopathy in the setting of Parkinsons Disease. She has continued impaired mobility and impaired independence with ADLs and IADLs requiring PT/OT/DRY JANITOR 5-7 days/week 3 hours/day to maximize safety and independence with functional ability and self-care. -PT to improve patient's strength, endurance, bed mobility, transfers (sit- stand), standing balance, gait quality on level surfaces and stairs, coordination and functional ADL skills. We will also work to improve patient's safety awareness during transfers and ambulation. -OT for basic ADL retraining (bathing, dressing, toileting, continence, grooming, feeding, transferring), to increase activity tolerance and functional mobility to evaluate for adaptive assistive device. We will work to improve patient's endurance and educate patient on fall prevention and energy conservation techniques-pacing strategies and proper breathing techniques duringfunctional tasks. -Patient education -Pressure ulcer prophylaxis; encourage mobilization, frequent postural changes, pressure-relief techniques -DVT prophylaxis -Encourage deep breathing exercise incentive spirometry. -Monitor bladder. Toileting schedule. Continue current bladder management, with scans as needed and CIC if needed. Start bowel care program every day to obtain continence, prevent ileus. -Maintain fall precautions -Gait and balance retraining -Provision of the necessary gait aids and functional adaptive equipment to enhance the patient's a functional taoism -Encourage deep breathing exercises and incentive spirometry -RD evaluation -Ensure adequate nutrition and hydration -Discharge planning. #. UPDATES -Admission labs reviewed. Labs appears non acute -Vitals stable -Continue Meropenem for 1 additional day to complete Abx course -Continue home medications for chronic medical conditions -PD: Sinemet 10-100 TID, Azilect daily, Requip 0.25 mg qhs, Amantadine 100 mgTID -HTN: Norvasc 5 mg daily, Hydralazine 25 mg BID -Anxiety: Xanax 1 mg qhs PRN -Seroquel 25 mg qhs for sleep/agitation. Monitor for worsening PD symptoms -Continue PT/OT/St -Hospitalist to assist with management of comorbid medical conditions #. Pain control: Tylenol PRN, #. Bowel and bladder: Continent of Bowel/bladder #. Skin: (pressure ulcer/surgical site) Pressure ulcer prophylaxis; encourage mobilization, frequent postural changes, pressure-relief techniques #. Sleep: Optimize sleep/wake cycle DVT prophylaxis: Heparin 5000 units q12hr Functional status: Impaired. Limited by pain, weakness Discharge planning: ELOS 1-2 weeks Patient was personally seen by me, Dr. Neil, on the day of encounter, within 24 hours of rehab admission, reviewed the history and the relevant portions of the chart, including current orders, allied health and integrity consultant notes, labs/imaging and performed moss elements of exam and I formulated the planof care and facilitated the medical decision making. I completed a substantive portion of this encounter, the medical decision makingportion of this note in its entirety, including Allied health note review, nursing note review, integrity consultant note review, discussion with nursing and case management, and more than 50% of my time was spent on counseling and coordination of care, time spent 75 minutes Documented By: Pa Neil MD [id number] Signed By: <Electronically signed by Pa Neil MD> 08/26/24 [facility] Work Phone: [phone] [place] [address] Physiatry (Rehab) H&P Signed Patient: Judith Land MR#: [id number] : 1945 Acct:[id number] Age/Sex: 79 / F Adm Date: 5 Loc: Room: [address] [place] [address] Type: ADM IN Attending Dr: Pa Neil MD Copies to: MD Kavon Champion MD~ Date of Service: 08/26/2024 HPI The patient was seen and examined on: 08/26/24 Chief complaint: Weakness History of Present Illness: Ms. Land is a 79 year old female with a PMH of Parkinson disease, HTN, HLD, CAD, anxiety, RLS, chronic pain who presents to the rehab unit due to multifactorial functional decline in the setting of an acute UA with hospital course complicated by metabolic encephalopathy. She initially presented to the hospital due confusion for several days. She had been treated outpatient for about a month for a UTI without resolution of her infection. While hospitalized,she became acutely agitated requiring sedatives and 1:1. Gradually improved. Urine culture grew Pseudomonas for which she was started onMeropenem. OF note, the patient had a recent fall with fracture of the right arm and is in a splint. The patient lives with her daughter in a condo with 1 step to enter. Does not use an assistive device. This patient was seen and evaluated today. Family at bedside. She appears in no distress. Family had some questions today regarding patients recurrent UTIs. Gave advice including hydration, emptying bladder completely, proper hygiene. The patient is otherwise doing well. She does have a fracture ofthe radius and ulna on the right and family tells me that this was just recently repaired on August 12. They note that she was NWB post op but have not had follow up yet with Dr. Lyn. The patient lives with her family. She reports that she was doing really well prior to developing the UTI but her Parkinsons symptoms have been much worse over the past month. 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 Family History Mother Stroke Father Cancer Lung Son Cancer Lymphoma Social History Smoking Status: Former smoker Tobacco Type: cigarettes Substance Use Type: None Review of Systems Review of Systems All other systems reviewed & are negative unless noted below or in HPI Meds Medications and Allergies Allergies Sulfa (Sulfonamide Antibiotics) Allergy (Verified 08/20/24 19:40) Difficulty Breathing sulfamethoxazole (From Bactrim) Allergy (Verified 08/20/24 19:40) Difficulty Breathing trimethoprim (From Bactrim) Allergy (Verified 08/20/24 19:40) Difficulty Breathing Home and Active Meds: Home Medications alprazolam 1 mg tablet (Xanax) 1 mg PO QHS PRN sleep 08/20/24 [History Confirmed 08/25/24] ascorbic acid (vitamin C) 1,000 mg capsule 1 g PO DAILY 08/21/24 [History Confirmed 08/25/24] aspirin 81 mg chewable tablet 81 mg PO DAILY 08/21/24 [History Confirmed 08/25/24] carbidopa 10 mg-levodopa 100 mg tablet (Sinemet) 1 tab PO TID 08/21/24 [History Confirmed 08/25/24] cholecalciferol (vitamin D3) 125 mcg (5,000 unit) capsule 125 mcg PO DAILY 08/21/24 [History Confirmed 08/25/24] lutein 25 mg-zeaxanthin 5 mg capsule 1 cap PO DAILY 08/21/24 [History Confirmed 08/25/24] multivitamin 1 tab PO DAILY 08/21/24 [History Confirmed 08/25/24] pantoprazole 40 mg tablet,delayed release 40 mg PO QAM 08/21/24 [History Confirmed 08/25/24] potassium chloride 20 mEq tablet,extended release(part/cryst) (Klor-Con M) 20 meq PO BID 08/21/24 [History Confirmed 08/25/24] rasagiline 1 mg tablet 1 mg PO DAILY 08/21/24 [History Confirmed 08/25/24] zinc gluconate 50 mg tablet 50 mg PO DAILY 08/21/24 [History Confirmed 08/25/24] amantadine HCl 100 mg tablet 100 mg PO TID 08/24/24 [History Confirmed 08/25/24] amlodipine 5 mg tablet 5 mg PO DAILY #0 tabs 08/25/24 [Rx Confirmed 08/25/24] hydralazine 25 mg tablet 25 mg PO BID #60 tabs 08/25/24 [Rx Confirmed 08/25/24] meropenem 1 gram intravenous solution 1 g IV Q12H 1 day #0 ea 08/25/24 [Rx Confirmed 08/25/24] quetiapine 25 mg tablet 25 mg PO QHS #0 tabs 08/25/24 [Rx Confirmed 08/25/24] ropinirole 0.25 mg tablet 0.25 mg PO QHS #0 tabs 08/25/24 [Rx Confirmed 08/25/24] Active Medications Acetaminophen (Acetaminophen 500 Mg Tablet) 500 mg PO Q4H PRN PRN Reason: Pain Stop: 08/25/25 15:47 Al Hydrox/Mg Hydrox/Simethicone (Mag Hydrox/Al Hydrox/Simeth 30 Ml Udc) 30 ml PO Q4H PRN PRN Reason: Indigestion Stop: 08/25/25 15:47 Alprazolam (Alprazolam 0.5 Mg Tablet) 1 mg PO QHS PRN PRN Reason: sleep Last Admin: 08/25/24 21:26 Dose: 1 mg Amantadine HCl (Amantadine 100 Mg Capsule) 100 mg PO TID [facility] Stop: 08/25/25 21:59 Last Admin: 08/26/24 09:05 Dose: 100 mg Amlodipine Besylate (Amlodipine 5 Mg Tablet) 5 mg PO DAILY [facility] Stop: 08/26/25 08:59 Last Admin: 08/26/24 09:08 Dose: 5 mg Ascorbic Acid (Ascorbic Acid 500 Mg Tablet) 1,000 mg PO DAILY [facility] Stop: 08/26/25 08:59 Last Admin: 08/26/24 09:08 Dose: 1,000 mg Aspirin (Aspirin 81 Mg Tab.Chew) 81 mg PO DAILY [facility] Stop: 08/26/25 08:59 Last Admin: 08/26/24 09:05 Dose: 81 mg Bisacodyl (Bisacodyl 10 Mg Supp.Rect) 10 mg WI DAILY PRN PRN Reason: Constipation Stop: 08/25/25 15:47 Carbidopa/Levodopa (Carbidopa/Levodopa 10-100 Mg 1 Tab Tablet) 1 tab PO TID [facility] Stop: 08/25/25 21:59 Last Admin: 08/26/24 09:05 Dose: 1 tab Docusate Sodium (Docusate 100 Mg Capsule) 100 mg PO BID PRN PRN Reason: Constipation Stop: 08/25/25 15:47 Docusate Sodium (Docusate Enema 283 Mg/5 Ml Enema) 283 mg WI DAILY PRN PRN Reason: Constipation Stop: 08/25/25 15:47 Heparin Sodium (Porcine) (Heparin 5,000 Unit/Ml Vial) 5,000 unit SUBCUT Q12HR [facility] Stop: 08/25/25 20:59 Last Admin: 08/26/24 09:06 Dose: 5,000 unit Hydralazine HCl (Hydralazine 25 Mg Tablet) 25 mg PO BID [facility] Stop: 08/25/25 20:59 Last Admin: 08/26/24 09:08 Dose: 25 mg Meropenem (Merrem) 1 gm in 100 mls @ 200 mls/hr IV Q12H [facility] Stop: 08/26/24 20:29 Last Admin: 08/26/24 08:55 Dose: 200 mls/hr Lactulose (Lactulose 20 Gm/30 Ml Udc) 30 gm PO DAILY PRN PRN Reason: Constipation Stop: 08/25/25 15:47 Multivitamins (Multivitamin 1 Tab Tablet) 1 tab PO DAILY [facility] Stop: 08/26/25 08:59 Last Admin: 08/26/24 09:06 Dose: 1 tab Pantoprazole Sodium (Pantoprazole 40 Mg Tablet.Dr) 40 mg PO QAM [facility] Stop: 08/26/25 08:59 Last Admin: 08/26/24 09:06 Dose: 40 mg Potassium Chloride (Potassium Chloride Er 20 Meq Tab.Er.Prt) 20 meq PO BID [facility] Stop: 08/25/25 20:59 Last Admin: 08/26/24 09:08 Dose: 20 meq Quetiapine Fumarate (Quetiapine Fumarate 25 Mg Tablet) 25 mg PO BID PRN PRN Reason: Agitation Stop: 08/25/25 20:59 Quetiapine Fumarate (Quetiapine Fumarate 25 Mg Tablet) 25 mg PO QHS [facility] Stop: 08/25/25 21:59 Last Admin: 08/25/24 21:27 Dose: 25 mg Rasagiline (Rasagiline 1 Mg Tablet) 1 mg PO DAILY [facility] Stop: 08/26/25 08:59 Last Admin: 08/26/24 09:09 Dose: 1 mg Ropinirole HCl (Ropinirole 0.25 Mg Tablet) 0.25 mg PO QHS [facility] Stop: 08/25/25 21:59 Last Admin: 08/25/24 21:27 Dose: 0.25 mg Sennosides (Sennosides 8.6 Mg Tablet) 17.2 mg PO DAILY@12 PRN PRN Reason: If no BM in 2 days Stop: 08/26/25 11:59 Sodium Chloride (Sodium Chloride 0.9 % 10 Ml Syringe) 0 ml IV-PUSH PRN PRN PRN Reason: Flush Stop: 08/25/25 15:47 Sodium Chloride (Sodium Chloride 0.9 % 10 Ml Syringe) 10 ml IV-PUSH Q8H [facility] Stop: 08/25/25 21:59 Last Admin: 08/26/24 05:41 Dose: 10 ml Vitamin D (Cholecalciferol 125 Mcg (5,000 Units) Capsule) 125 mcg PO DAILY [facility] Stop: 08/26/25 08:59 Last Admin: 08/26/24 09:06 Dose: 125 mcg Zinc Gluconate (Zinc Gluconate 50 Mg Tablet) 50 mg PO DAILY [facility] Stop: 08/26/25 08:59 Last Admin: 08/26/24 09:06 Dose: 50 mg Exam Physical Exam Vital Signs: Temp Pulse Resp BP Pulse Ox O2 Del Method 98.2 F 73 16 157/93 H 95 Room Air 08/26/24 05:40 08/26/24 05:40 08/26/24 05:40 08/26/24 05:40 08/26/24 05:40 08/26/24 05:40 Narrative: NAD. Sitting up in chair. Cachectic Extremities well perfused No respiratory distress Abdomen soft, non distended DELMER. Tremor appreciated in all 4 extremities Speech is normal, fluent Results - Phys. Rehab Labs Labs: Laboratory Results - last 24 hr 08/26/24 05:02 Corrected WBC 8.9 Uncorrected WBC Count 8.9 RBC 4.19 Hgb 13.0 Hct 38.7 MCV 92.3 MCH 31.1 MCHC 33.7 RDW 14.9 Plt Count 254 MPV 9.9 Neut % (Auto) N/A Lymph % (Auto) N/A [place] % (Auto) N/A Eos % (Auto) N/A Baso % (Auto) N/A Nucleat RBC Rel Count N/A Neut # (Auto) N/A Lymph # (Auto) N/A [place] # (Auto) N/A Eos # (Auto) N/A Baso # (Auto) N/A Lymphocytes % 28 Monocytes % 12 H Eosinophils % 3 Basophils % 1 Myelocytes % 1 H Segmented Neutrophils 53 Reactive Lymphocytes 2 Platelet Estimate Normal Large Platelets Slight Giant Platelets 1 Plt Morphology Comment N/A RBC Morphology N/A Poikilocytosis Moderate Target Cells Slight Ovalocytes Moderate Crenated Cell Moderate Acanthocytes (Spur) Slight Schistocytes Slight PHA Creatinine Clear 31.08 Sodium 144 Potassium 3.7 Chloride 108 H Carbon Dioxide 29.5 Anion Gap 10.2 BUN 22 Creatinine 1.14 Est GFR (CKD-EPI) 49.274 Glucose 86 Calcium 11.0 H Total Bilirubin 0.5 AST 15 ALT 4 L Alkaline Phosphatase 107 H Total Protein 6.0 L Albumin 3.8 Globulin 2.2 Albumin/Globulin Ratio 1.7 Prealbumin 15.9 L Slides for Path Review Cancelled Additional Results Results Comment: I reviewed clinical lab tests, radiology reports and obtained and summated medical records and haveordered follow up lab tests and imaging studies as needed for rehabilitation care. Individualized Plan of Care Individualized Plan of Care Plan of Care: Individualized Overall Plan of Care: Admit Date/Time: 08/25/24 Expected LOS: 2 weeks Expected Discharge Destination: Home Rehabilitation IGC: 3.2 Primary Diagnosis: Psdeuoexacerbation of Parkinsons Disease 2/2 UTI To have patient become more independent and to return home. Medical/ Functional Prognosis: Good Anticipated Functional Outcomes/Goals and Interventions: -Therapy Functional Outcome/Goal: Mobility/Locomotion: Patient likely to be CGA with ambulation with assistive device. Anticipated interventions: Physician management, PT, OT, Dietitian, Rehab Nursing - Therapy Functional Outcome/Goal: Self Care: Patient likely to be functionally CGA for activities of daily living using assistive / adaptive equipment as needed. Anticipated interventions: Physician management, PT, OT, Dietitian, Rehab Nursing - Therapy Functional Outcome/Goal: Bladder/Bowel Management: Patient likely to be CGA with bladder care and independent with bowel care. Anticipated interventions: Physician management, PT, OT, Dietitian, Rehab Nursing -Therapy Functional Outcome/Goal: Communication/Cognition: Patient will be able to communicate fully and be safe cognitively. Anticipated interventions: Physician management, PT, OT,DRY JANITOR Dietitian, Rehab Nursing -Therapy Functional Outcome/Goal: Patient will be CGA for bed mobility and transfers Anticipated interventions: Physician management, PT, OT, Dietitian, Rehab Nursing -Therapy Functional Outcome/Goal: Patient will improve endurance to be able to tolerate all daily self care activities and avocational activities. Anticipated interventions: Physician management, PT, OT, Nutrition, Rehab Nursing -Therapy Functional Outcome/Goal: Patient will understand and assimilate / integrate education regarding management of their medical conditions to maintainhealth and wellbeing. Anticipated interventions: Physician management, PT, OT, Dietitian, Rehab Nursing Required Therapy PT: 1 hour per day at least 5 days per week with additional therapy on as neededbasis. Comments: PT to improve pt's strength, endurance, bed mobility, transfers (sit- stand), standing balance, gait quality on level surfaces and stairs, coordination and functional ADL skills. Will also work to improve pt's safety awareness during transfers and ambulation. OT: 1 hour per day at least 5 days per week with additional therapy on as neededbasis. Comments: OT for basic ADL re-training (bathing, dressing, toileting, continence, grooming, feeding, transferring), to increase activity tolerance andfunctional mobility and to evaluate for adaptive and assistive devices. Will work to improve pt's endurance and educate pt on fall prevention and energy conservation techniques-pacing strategies and proper breathing techniques duringfunctional tasks. Speech/Language - 1 hour per day at least 5 days per week with additional therapy on as needed basis. Comments: DRY JANITOR to evaluate and treat patient?s cognition, language and communication skills, assess swallow function. Other: Dietitian, Rehab nursing, Wound, P&O, Neuropsychology as needed RATIONALE FOR IRF ADMISSION: Patient has both medical and functional complexities that require 24 hour daily monitoring and intervention from [employer] as well as other consulting physicians including internal medicine as well as 24 hour daily veneer marker nursing - for medical safe / optimal manageme nt. Patient requires interdisciplinary therapy team rehabilitation care including OT, PT, DRY JANITOR, SW, Psychology, Rehab Nursing, requires and can tolerate at least 3 hours of daily OT and PT therapy at least 5 days weekly. The following medical conditions significantly impact the rehabilitation process and are being addressed daily and can not be managed at home or in a lesser intense medical setting: Refer to above problem oriented plan of care Assessment/Plan (1) Parkinsons disease: Qualifiers: Dyskinesia presence: without dyskinesia Fluctuating manifestations: without fluctuating manifestations Qualified Code(s): G20.A1 - Parkinson's disease without dyskinesia, without mention of fluctuations (2) Metabolic encephalopathy: (3) Acute UTI: (4) HTN (hypertension): (5) Anxiety: (6) Impaired mobility and activities of daily living: Plan This is a 79-year-old female who presents to [facility] IRF due to multifactorial functional decline in the setting of acute UTI with metabolic encephalopathy in the setting ofParkinsons Disease. She has continued impaired mobility and impaired independence with ADLs and IADLs requiring PT/OT/DRY JANITOR 5-7 days/week 3 hours/day to maximize safety and independence with functionalability and self-care. -PT to improve patient's strength, endurance, bed mobility, transfers (sit- stand), standing balance, gait quality on level surfaces and stairs, coordination and functional ADL skills. We will also work to improve patient's safety awareness during transfers and ambulation. -OT for basic ADL retraining (bathing, dressing, toileting, continence, grooming, feeding, transferring), to increase activity tolerance and functional mobility to evaluate for adaptive assistive device. We will work to improve patient's endurance and educate patient on fall prevention and energy co nservation techniques-pacing strategies and proper breathing techniques duringfunctional tasks. -Patient education -Pressure ulcer prophylaxis; encourage mobilization, frequent postural changes, pressure-relief techniques -DVT prophylaxis -Encourage deep breathing exercise incentive spirometry. -Monitor bladder. Toileting schedule. Continue current bladder management, with scans as needed andCIC if needed. Start bowel care program every day to obtain continence, prevent ileus. -Maintain fall precautions -Gait and balance retraining -Provision of the necessary gait aids and functional adaptive equipment to enhance the patient's a functional taoism -Encourage deep breathing exercises and incentive spirometry -RD evaluation -Ensure adequate nutrition and hydration -Discharge planning. #. UPDATES -Admission labs reviewed. Labs appears non acute -Vitals stable -Continue Meropenem for 1 additional day to complete Abx course -Continue home medications for chronic medical conditions -PD: Sinemet 10-100 TID, Azilect daily, Requip 0.25 mg qhs, Amantadine 100 mgTID -HTN: Norvasc 5 mg daily, Hydralazine 25 mg BID -Anxiety: Xanax 1 mg qhs PRN -Seroquel 25 mg qhs for sleep/agitation. Monitor for worsening PD symptoms -Continue PT/OT/St -Hospitalist to assist with management of comorbid medical conditions #. Pain control: Tylenol PRN, #. Bowel and bladder: Continent of Bowel/bladder #. Skin: (pressure ulcer/surgical site) Pressure ulcer prophylaxis; encourage mobilization, frequent postural changes, pressure-relief techniques #. Sleep: Optimize sleep/wake cycle DVT prophylaxis: Heparin 5000 units q12hr Functional status: Impaired. Limited by pain, weakness Discharge planning: ELOS 1-2 weeks Patient was personally seen by me, Dr. Neil, on the day of encounter, within 24 hours of rehab admission, reviewed the history and the relevant portions of the chart, including current orders, allied health and integrity consultant notes, labs/imaging and performed moss elements of exam and I formulatedthe planof care and facilitated the medical decision making. I completed a substantive portion of this encounter, the medical decision makingportion of this note in its entirety, including Allied health note review, nursing note review, integrity consultant note review,discussion with nursing and case management, and more than 50% of my time was spent on counseling and coordination of care, time spent 75 minutes Documented By: Pa Neil MD 1024 Signed By: 08/26/24 1258 [facility]03-17-2025 Discharge summary Author Mariajose Alfred [facility] Note Date/Time August 25, 2024 12: 22pm [facility] [address] [place] [address] Discharge Summary Signed Patient: Judith Land MR#: [id number] : 1945 Acct:[id number] Age/Sex: 79 / F Adm Date: 5 Loc: Room: [address] [place] [address]: Mariajose Alfred MD Copies to: MD Mariajose Arroyo MD~ Providers Date of Discharge: 08/25/24 Discharging Provider: Mariajose Alfred Primary Care Provider: Kavon Sams Consults: 08/21/24 00:10 Consult to Occupational Therapy Routine Comment: Physician Instructions: Consult to OT for:: Evaluation and Treat Consult to Physical Therapy Routine Comment: Physician Instructions: Consult to PT for:: Evaluation and Treat 08/21/24 14:46 Consult to Physiatry Routine Comment: Consulting Provider: [facility] - Phys Med - Rehab Reason For Exam: Rehab eval/post acute care needs Has Provider Been Notified: Yes Date of Notification: 08/21/24 Time of Notification: 14:47 08/22/24 07:29 Consult to Neurology Routine Comment: Consulting Provider: Tony Fuentes Reason For Exam: parkinison with delirium Has Provider Been Notified: Yes Date of Notification: 08/22/24 Time of Notification: 07:30 Discharge Diagnosis (1) Metabolic encephalopathy: (2) ANTONIO (acute kidney injury): (3) UTI (urinary tract infection): (4) Hypercalcemia: (5) Parkinsons disease: Final Diagnosis Final Discharge Diagnosis: as above Summary Hospital Course Hospital course: Patient is a 79-year-old female with a PMH of Parkinson disease, HTN, HLD, CAD, anxiety, RLS, chronic pain that presented to the emergency room for UTI. She has been on 3 antibiotics, Cipro, cephalexin and cefdinir as outpatient for thisUTI. She completed the Cipro and cephalexin, was not able to complete cefdinir due to nausea. She states that she has been dealing with this UTI for about a month now. Daughter states that she has noticed some confusion in the last 4 to5 days. She was started on IV cefepime, she responded well on day 1 here and did good with improvement in her mentation. Later that day, she became confused,hallucinating, violent, for which she required sedatives, telesitter, 1:1, neurology consulted for meds reconciliation, advised to continue medications. We stopped gabapentin as pt has been off of it. Xanax resumed since its chronic medfor her and to avoid withdrawal from benzodiazepine. Urine cx grew pseudomonas 50K partially treated. She failed treatment for UTI outpatient with oral AB. Discussed with patient's daughter Kathie at bedside at length regarding updates and treatment plan. Patient slept well last night and feels much better this morning, ate breakfast, she is AOx3. We also discussed about UTI, pseudomonas infection and how it requires special AB to cover and concern for resistance with continues to have UTIs. We discussed preventive measures of UTI. Also explained about patient's ANTONIO and hypercalcemia which are risks to deteriorate her clinical condition in case of any infection or can be risky for meds clearance as well. switched her BP meds at this point to other agents. Discontinued Lisinopril and HCTZ. Start Amlodipine 5 mg daily for now, added hydralazine 25 mg BID for better BP control. Discussed with patient and daughter Kathie at bedside, all question answered, they are in agreement and comfortable with discharge plan at this time. Patient has been accepted to our inpatient rehab and stable for discharge at this time, will continue with 1 moreday of IV antibiotics to complete course of treatment. Condition Condition at Discharge: Stable Status at Discharge Overall status at discharge: patient is back to baseline Time Spent with Patient Time spent providing/coordinating discharge services (# min): 42 Discharge Plan Discharge Plan Patient Disposition: Rehab [facility] Activity: Ambulate as Tolerated Diet: Regular Additional Instructions: Rehab to manage: -PT/OT to eval and treat -Monitor VS per protocol -High fall risk precautions -Routine assessments -Routine skin care and assessments -Monitor intake and output -Monitor for increased signs of infection -Optimize sleep and wake cycle -Dietitian recommendations: *Ensure plus, 1 container, BID with meals -Care to be managed by rehab providers. -Continue antibiotics with meropenem for 1 more day Prescriptions: New quetiapine 25 mg Tablet 25 mg PO QHS Qty: 0 0RF hydralazine 25 mg Tablet 25 mg PO BID Qty: 60 0RF amlodipine 5 mg Tablet 5 mg PO DAILY Qty: 0 0RF ropinirole 0.25 mg Tablet 0.25 mg PO QHS Qty: 0 0RF meropenem 1 gram Recon Soln 1 g IV Q12H 1 Days Qty: 0 0RF Continued alprazolam [Xanax] 1 mg tablet 1 mg PO QHS carbidopa-levodopa [Sinemet] 10-100 mg tablet 1 tab PO TID potassium chloride [Klor-Con M20] 20 mEq tablet,ER particles/crystals 20 meq PO BID ascorbic acid (vitamin C) 1,000 mg capsule 1 g PO DAILY cholecalciferol (vitamin D3) 125 mcg (5,000 unit) capsule 125 mcg PO DAILY zinc gluconate 50 mg tablet 50 mg PO DAILY aspirin 81 mg tablet,chewable 81 mg PO DAILY lutein-zeaxanthin 25-5 mg capsule 1 cap PO DAILY multivitamin Tablet 1 tab PO DAILY rasagiline 1 mg tablet 1 mg PO DAILY pantoprazole 40 mg tablet,delayed release (DR/EC) 40 mg PO QAM amantadine HCl 100 mg tablet 100 mg PO TID Discontinued ropinirole 0.25 mg tablet 0.25 mg PO TID pravastatin 20 mg tablet 20 mg PO DAILY gabapentin 300 mg capsule 300 mg PO TID lisinopril-hydrochlorothiazide 20-25 mg tablet 1 tab PO DAILY Follow Up: [facility] [place] [Outside] (Please arrange a follow-up appointment once discharged from rehab. ) Kavon Sams MD [Primary Care Provider] - (Please arrange a follow-up appointment once discharged from rehab. ) Continuity of Care Document Health Concerns: A [facility] screening has identified you as FRAIL or AT RISK FOR FRAILTY. This puts you at a higher risk for infection, illness, falls,and other injuries. Here are four ways to help you reduce your risk of frailty: 1. IDENTIFY EARLY SIGNS OF FRAILTY ? Discuss contributing factors and concerns with your doctor 2. BE ACTIVE ? Walking and light strengthening exercises will help reduce weakness 3. EAT WELL ? Aim for three healthy meals a day that are high in protein 4. THINK POSITIVE ? Keep your mind active by being sociable and continuing to learn References: Stay Strong: Four Ways to Beat the Frailty Risk [email or web address] Exam Physical Exam Vital Signs: Temp Pulse Resp BP Pulse Ox O2 Del Method 97.7 F 99 16 156/90 H 93 L Room Air 08/25/24 07:20 08/25/24 07:20 08/25/24 07:20 08/25/24 07:20 08/25/24 07:20 08/25/24 07:20 Narrative: Const General: cooperative HEENT Normal oropharyngeal mucosa without any ulcers or exudates Eyes: Conjunctiva normal Pulmonary Auscultation: clear to auscultation , no crackles, no wheezes Cardiovascular Rate: normal rate Rhythm: regular rhythm Heart Sounds: S1 normal, S2 normal and no murmurs GI Inspection: non-distended Palpation: soft, not firm and nontender. No rigidity or rebound. Deferred Neuro General: alert, awake and oriented x 3, back to baseline. No obvious new focal deficit Musculoskeletal: cast on R UE, recent fracture from fall at home (was present onadmission) Extrem General: no cyanosis, no pedal edema Psych Appearance: calm and cooperative. Diagnostic Studies Completed and Pending Studies Pending studies at discharge: 08/21/24 00:57 Blood Culture Stat Preliminary micro results at discharge 08/21/24 00:57 Blood Culture - Preliminary Blood - Right Antecubital No Growth 4 Days 08/20/24 21:19 Blood Culture - Preliminary Blood - Left Antecubital No Growth 4 Days Labs on day of discharge: 08/25/24 06:06: PHA Creatinine Clear 39.22, Sodium 142, Potassium 3.4 L, Chloride 107, Carbon Dioxide 28.8, Anion Gap 9.6, BUN 21, Creatinine 0.92, Est GFR (CKD- EPI) > 60.0, Glucose 92, Calcium 10.7 H, Total Bilirubin 0.4, AST 16, ALT 6 L, Alkaline Phosphatase 114 H, Total Protein 6.2 L, Albumin 3.8, Globulin 2.4, Albumin/Globulin Ratio 1.6 Documented By: Mariajose Alfred MD 08/25/24 12 15 Signed By: <Electronically signed by Mariajose Alfred MD> 08/25/24 1222 [facility] Work Phone: [phone] [place] [address] Discharge Summary Signed Patient: Judith Land MR#: [id number] : 1945 Acct:[id number] Age/Sex: 79 / F Adm Date: 5 Loc: Room: [address] [place] [address]: Mariajose Alfred MD Copies to: MD Mariajose Arroyo MD~ Providers Date of Discharge: 08/25/24 Discharging Provider: Mariajose Alfred Primary Care Provider: Kavon Sams Consults: 08/21/24 00:10 Consult to Occupational Therapy Routine Comment: Physician Instructions: Consult to OT for:: Evaluation and Treat Consult to Physical Therapy Routine Comment: Physician Instructions: Consult to PT for:: Evaluation and Treat 08/21/24 14:46 Consult to Physiatry Routine Comment: Consulting Provider: [facility] - Phys Med - Rehab Reason For Exam: Rehab eval/post acute care needs Has Provider Been Notified: Yes Date of Notification: 08/21/24 Time of Notification: 14:47 08/22/24 07:29 Consult to Neurology Routine Comment: Consulting Provider: Tony Fuentes Reason For Exam: parkinison with delirium Has Provider Been Notified: Yes Date of Notification: 08/22/24 Time of Notification: 07:30 Discharge Diagnosis (1) Metabolic encephalopathy: (2) ANTONIO (acute kidney injury): (3) UTI (urinary tract infection): (4) Hypercalcemia: (5) Parkinsons disease: Final Diagnosis Final Discharge Diagnosis: as above Summary Hospital Course Hospital course: Patient is a 79-year-old female with a PMH of Parkinson disease, HTN, HLD, CAD, anxiety, RLS, chronic pain that presented to the emergency room for UTI. She has been on 3 antibiotics, Cipro, cephalexin and cefdinir as outpatient for thisUTI. She completed the Cipro and cephalexin, was not able to complete cefdinir due to nausea. She states that she has been dealing with this UTI for about a monthnow. Daughter states that she has noticed some confusion in the last 4 to5 days. She was started onIV cefepime, she responded well on day 1 here and did good with improvement in her mentation. Laterthat day, she became confused,hallucinating, violent, for which she required sedatives, telesitter,1:1, neurology consulted for meds reconciliation, advised to continue medications. We stopped gabapentin as pt has been off of it. Xanax resumed since its chronic medfor her and to avoid withdrawal from benzodiazepine. Urine cx grew pseudomonas 50K partially treated. She failed treatment for UTI outpatient with oral AB. Discussed with patient's daughter Kathie at bedside at length regarding updatesand treatment plan. Patient slept well last night and feels much better this morning, ate breakfast, she is AOx3. We also discussed about UTI, pseudomonas infection and how it requires special AB to cover and concern for resistance with continues to have UTIs. We discussed preventive measures of UTI. Also explained about patient's ANTONIO and hypercalcemia which are risks to deteriorate her clinical c ondition in case of any infection or can be risky for meds clearance as well. switched her BP meds at this point to other agents. Discontinued Lisinopril and HCTZ. Start Amlodipine 5 mg daily for now, added hydralazine 25 mg BID for better BP control. Discussed with patient and daughter Kathie at bedside, all question answered, they are in agreement and comfortable with discharge plan at this time.Patient has been accepted to our inpatient rehab and stable for discharge at this time, will continue with 1 moreday of IV antibiotics to complete course of treatment. Condition Condition at Discharge: Stable Status at Discharge Overall status at discharge: patient is back to baseline Time Spent with Patient Time spent providing/coordinating discharge services (# min): 42 Discharge Plan Discharge Plan Patient Disposition: Rehab [facility] Activity: Ambulate as Tolerated Diet: Regular Additional Instructions: Rehab to manage: -PT/OT to eval and treat -Monitor VS per protocol -High fall risk precautions -Routine assessments -Routine skin care and assessments -Monitor intake and output -Monitor for increased signs of infection -Optimize sleep and wake cycle -Dietitian recommendations: *Ensure plus, 1 container, BID with meals -Care to be managed by rehab providers. -Continue antibiotics with meropenem for 1 more day Prescriptions: New quetiapine 25 mg Tablet 25 mg PO QHS Qty: 0 0RF hydralazine 25 mg Tablet 25 mg PO BID Qty: 60 0RF amlodipine 5 mg Tablet 5 mg PO DAILY Qty: 0 0RF ropinirole 0.25 mg Tablet 0.25 mg PO QHS Qty: 0 0RF meropenem 1 gram Recon Soln 1 g IV Q12H 1 Days Qty: 0 0RF Continued alprazolam [Xanax] 1 mg tablet 1 mg PO QHS carbidopa-levodopa [Sinemet] 10-100 mg tablet 1 tab PO TID potassium chloride [Klor-Con M20] 20 mEq tablet,ER particles/crystals 20 meq PO BID ascorbic acid (vitamin C) 1,000 mg capsule 1 g PO DAILY cholecalciferol (vitamin D3) 125 mcg (5,000 unit) capsule 125 mcg PO DAILY zinc gluconate 50 mg tablet 50 mg PO DAILY aspirin 81 mg tablet,chewable 81 mg PO DAILY lutein-zeaxanthin 25-5 mg capsule 1 cap PO DAILY multivitamin Tablet 1 tab PO DAILY rasagiline 1 mg tablet 1 mg PO DAILY pantoprazole 40 mg tablet,delayed release (DR/EC) 40 mg PO QAM amantadine HCl 100 mg tablet 100 mg PO TID Discontinued ropinirole 0.25 mg tablet 0.25 mg PO TID pravastatin 20 mg tablet 20 mg PO DAILY gabapentin 300 mg capsule 300 mg PO TID lisinopril-hydrochlorothiazide 20-25 mg tablet 1 tab PO DAILY Follow Up: [facility] [place] [Outside] (Please arrange a follow-up appointment once discharged from rehab. ) Kavon Sams MD [Primary Care Provider] - (Please arrange a follow-up appointment once dischargedfrom rehab. ) Continuity of Care Document Health Concerns: A [facility] screening has identified you as FRAIL or AT RISK FOR FRAILTY. This puts you at a higher risk for infection, illness, falls,and other injuries. Here are four ways to help you reduce your risk of frailty: 1. IDENTIFY EARLY SIGNS OF FRAILTY ? Discuss contributing factors and concerns with your doctor 2. BE ACTIVE ? Walking and light strengthening exercises will help reduce weakness 3. EAT WELL ? Aim for three healthy meals a day that are high in protein 4. THINKPOSITIVE ? Keep your mind active by being sociable and continuing to learn References: Stay Strong:Four Ways to Beat the Frailty Risk [email or web address] Exam Physical Exam Vital Signs: Temp Pulse Resp BP Pulse Ox O2 Del Method 97.7 F 99 16 156/90 H 93 L Room Air 08/25/24 07:20 08/25/24 07:20 08/25/24 07:20 08/25/24 07:20 08/25/24 07:20 08/25/24 07:20 Narrative: Const General: cooperative HEENT Normal oropharyngeal mucosa without any ulcers or exudates Eyes: Conjunctiva normal Pulmonary Auscultation: clear to auscultation , no crackles, no wheezes Cardiovascular Rate: normal rate Rhythm: regular rhythm Heart Sounds: S1 normal, S2 normal and no murmurs GI Inspection: non-distended Palpation: soft, not firm and nontender. No rigidity or rebound. Deferred Neuro General: alert, awake and oriented x 3, back to baseline. No obvious new focal deficit Musculoskeletal: cast on R UE, recent fracture from fall at home (was present onadmission) Extrem General: no cyanosis, no pedal edema Psych Appearance: calm and cooperative. Diagnostic Studies Completed and Pending Studies Pending studies at discharge: 08/21/24 00:57 Blood Culture Stat Preliminary micro results at discharge 08/21/24 00:57 Blood Culture - Preliminary Blood - Right Antecubital No Growth 4 Days 08/20/24 21:19 Blood Culture - Preliminary Blood - Left Antecubital No Growth 4 Days Labs on day of discharge: 08/25/24 06:06: PHA Creatinine Clear 39.22, Sodium 142, Potassium 3.4 L, Chloride 107, Carbon Dioxide 28.8, Anion Gap 9.6, BUN 21, Creatinine 0.92, Est GFR (CKD-EPI) > 60.0, Glucose 92, Calcium 10.7 H, Total Bilirubin 0.4, AST 16, ALT 6 L, Alkaline Phosphatase 114 H, Total Protein 6.2 L, Albumin3.8, Globulin 2.4, Albumin/Globulin Ratio 1.6 Documented By: Mariajose Alfred MD 08/25/24 12 15 Signed By: 08/25/24 1222 [facility]03-16-2025 Progress note Author Mariajose Alfred [facility] Note Date/Time August 24, 2024 12: 10pm [facility] [address] [place] [address] Hospitalist Progress Note Signed Patient: Judith Land MR#: [id number] : 1945 Acct:[id number] Age/Sex: 79 / F Adm Date: 5 Loc: Room: [address] [place] [address] Type: ADM IN Attending Dr: Mariajose Alfred MD Copies to: ~ Date of Service: 08/24/2024 Subjective Subjective Narrative: Patient was seen and examined at bedside. She remained afebrile, no leukocytosis, signs of dehydration on chemistry, ANTONIO again and mild hypercalcemia. Clinically she seems to be doing great so far, did not sleep welllast night though, however no events of agitation or hallucinations as prior nights. She is sitting in the chair, drapes open, conversant, seem happy and cooperative. Alert, awake, oriented to year, time, was not sure much about the place (said [place]), she lives in [place]. Family members come and spend timewith her here, tells me she had fun last night here with family talk. She is excited about her new table with 6 chairs that she got. Doing well overall. Continue current management. Exam Physical Exam Vital Signs: Temp Pulse Resp BP Pulse Ox O2 Del Method 97.4 F L 76 20 162/89 H 96 Room Air 08/24/24 07:25 08/24/24 07:25 08/24/24 07:25 08/24/24 07:25 08/24/24 07:08/24/24 07:25 Narrative: Const General: cooperative HEENT Normal oropharyngeal mucosa without any ulcers or exudates Eyes: Conjunctiva normal Pulmonary Auscultation: clear to auscultation , no crackles, no wheezes Cardiovascular Rate: normal rate Rhythm: regular rhythm Heart Sounds: S1 normal, S2 normal and no murmurs GI Inspection: non-distended Palpation: soft, not firm and nontender. No rigidity or rebound. Deferred Neuro General: alert, awake and oriented, close to baseline. No obvious new focal deficit Musculoskeletal: cast on R UE, recent fracture from fall at home (was present onadmission) Extrem General: no cyanosis, no pedal edema Psych Appearance: calm and cooperative. Objective Lab Results 08/24/24 04:40 08/24/24 04:40 Microbiology Results Microbiology 08/21/24 00:57 Blood - Right Antecubital Blood Culture - Preliminary No Growth 3 Days 08/20/24 21:19 Blood - Left Antecubital Blood Culture - Preliminary No Growth 3 Days 08/20/24 21:36 Urine - Clean-Voided Midstream Urine Culture - Final Pseudomonas aeruginosa Meds Allergies and Active Meds Allergies Sulfa (Sulfonamide Antibiotics) Allergy (Verified 08/20/24 19:40) Difficulty Breathing sulfamethoxazole (From Bactrim) Allergy (Verified 08/20/24 19:40) Difficulty Breathing trimethoprim (From Bactrim) Allergy (Verified 08/20/24 19:40) Difficulty Breathing Active Meds: Active Medications Generic Name Dose Route Start Last Admin Trade Name Freq PRN Reason Stop Dose Admin Acetaminophen 1,000 mg 08/21/24 00:05 08/24/24 04:51 Acetaminophen 500 Mg Tablet PO 08/21/25 00:04 1,000 mg Q6HR PRN Administration Pain Scale 1 - 3 or fever Alprazolam 1 mg 08/23/24 22:00 08/23/24 22:20 Alprazolam 0.5 Mg Tablet PO 02/19/25 21:59 1 mg QHS LLOYD Administration Amlodipine Besylate 5 mg 08/24/24 09:00 08/24/24 08:04 Amlodipine 5 Mg Tablet PO 08/24/25 08:59 5 mg DAILY LLOYD Administration Aspirin 81 mg 08/21/24 09:00 08/24/24 08:04 Aspirin 81 Mg Tab.Chew PO 08/21/25 08:59 81 mg DAILY LLOYD Administration Carbidopa/Levodopa 1 tab 08/21/24 09:00 08/24/24 08:04 Carbidopa/Levodopa 10-100 Mg 1 Tab Tablet PO 08/21/25 08:59 1 tab TID LLOYD Administration Heparin Sodium (Porcine) 5,000 unit 08/21/24 09:00 08/24/24 08:04 Heparin 5,000 Unit/Ml Vial SUBCUT 08/21/25 08:59 5,000 unit Q12HR LLOYD Administration Hydralazine HCl 10 mg 08/23/24 07:08 Hydralazine 20 Mg/Ml Vial IV-PUSH 08/23/25 07:07 Q4H PRN if SBP > 185 Hydrochlorothiazide 25 mg 08/22/24 09:00 08/24/24 08:04 Hydrochlorothiazide 25 Mg Tablet PO 08/22/25 08:59 25 mg DAILY LLOYD Administration Meropenem 1 gm in 100 mls @ 33.333 mls/hr 08/23/24 02:00 08/24/24 06:01 Merrem IV Infused Q12H LLOYD Infusion Lactated Ringer's 1,000 mls @ 75 mls/hr 08/24/24 07:30 08/24/24 08:05 Lactated Ringers IV 08/25/24 10:09 75 mls/hr .[id number] LLOYD Administration Lisinopril 20 mg 08/22/24 09:00 08/23/24 09:19 Lisinopril 20 Mg Tablet PO 08/22/25 08:59 20 mg DAILY LLOYD Administration Ondansetron HCl 4 mg 08/21/24 00:05 Ondansetron 4 Mg/2 Ml Vial IV-PUSH 08/21/25 00:04 Q6H PRN Nausea And Vomiting Pantoprazole Sodium 40 mg 08/21/24 09:00 08/24/24 08:04 Pantoprazole 40 Mg Tablet.Dr PO 08/21/25 08:59 40 mg QAM LLOYD Administration Potassium Chloride 20 meq 08/22/24 09:00 08/24/24 08:04 Potassium Chloride Er 20 Meq Tab.Er.Prt PO 08/22/25 08:59 20 meq DAILY LLOYD Administration Quetiapine Fumarate 25 mg 08/23/24 22:00 08/23/24 22:20 Quetiapine Fumarate 25 Mg Tablet PO 08/23/25 21:59 25 mg QHS LLOYD Administration Quetiapine Fumarate 25 mg 08/23/24 14:01 Quetiapine Fumarate 25 Mg Tablet PO 08/23/25 20:59 BID PRN Agitation Rasagiline 1 mg 08/21/24 09:00 08/24/24 08:04 Rasagiline 1 Mg Tablet PO 08/21/25 08:59 1 mg DAILY LLOYD Administration Ropinirole HCl 0.25 mg 08/21/24 22:00 08/23/24 22:20 Ropinirole 0.25 Mg Tablet PO 08/21/25 21:59 0.25 mg QHS LLOYD Administration Sodium Chloride 0 ml 08/20/24 19:40 08/24/24 02:11 Sodium Chloride 0.9 % 10 Ml Syringe IV-PUSH 08/20/25 19:39 10 ml PRN PRN Administration Flush Sodium Chloride 0 ml 08/21/24 06:00 08/24/24 06:01 Sodium Chloride 0.9 % 10 Ml Syringe IV-PUSH 08/21/25 05:59 10 ml QSHIFT LLOYD Administration A&P - Hospitalist Assessment/Plan (1) ANTONIO (acute kidney injury): (2) Metabolic encephalopathy: (3) UTI (urinary tract infection): (4) Hypercalcemia: Plan 1. Acute kidney injury 2. Metabolic encephalopathy 3. Urinary tract infection 4. Hypercalcemia Acute kidney injury * Start IV hydration again, encourage oral intake * Continue to monitor CBC, BMP, magnesium, potassium * Supplements as needed * Hold Lisinopril. Hold HCTZ. Start Amlodipine 5 mg daily for BP control for now, will adjust as needed. Metabolic encephalopathy-much improving * Continue Xanax 1 mg * Continue quetiapine 25 mg QHS, and keep PRN BID as directed * Avoid Haldol and Ativan at this point as she seems stable on this regimen. * Regulate daytime and sleep cycles, open drapes during the day, and follow other measures. Urinary tract infection due to pseudomonal infection * Continue Meropenem * Blood cx negative to date, urine cx did show pseudomonas * Ordered repeat UA which looks better, continue current regimen for now. Hypercalcemia-Calcium has decreased from 11.1 mg/dL to 9.9 mg/dL. * Continue to monitor calcium Chronic conditions HTN?Hydralazine PRN; Would stop HCTZ and lisinopril due to obvious risk of UTI and HCTZ causing ANTONIO and hypercalcemia. Parkinson's disease?Continue carbidopa, levodopa, and rasagiline RLS?Continue ropinirole HLD?Continue use of pravastatin DVT Prophylaxis?Coninue on heparin Diet order?regular diet -Discussed with patient's daughter Kathie at bedside at length for about 25 minutes regarding updates and treatment plan. We did talk about how Judith did not sleep well but she is more calm and cooperative, Seroquel seems to be helpful, will titrate it as tolerated. We also discussed about UTI, pseudomonas infection and how it requires special AB to cover and concern for resistance with continues to have UTIs. We discussed preventive measures of UTI. Also explained about patient's ANTONIO and hypercalcemia which are risks to deteriorate her clinical condition in case of any infection or can be risky for meds clearance as well. I would switch her BP meds at this point to other agents. Discontinue Lisinopril and HCTZ. Start Amlodipine 5 mg daily for now, will titrate and add other agents as needed as tolerated. Plan is inpatient rehab if qualifies. Pt and daughter in agreement with plan. All questions answered. Documented By: Mariajose Alfred MD 08/24/24 10 36 Signed By: <Electronically signed by Mariajose Alfred MD> 08/24/[address] [place] [address] Work Phone: [phone] [place] [address] Hospitalist Progress Note Signed Patient: Judith Land MR#: [id number] : 1945 Acct:[id number] Age/Sex: 79 / F Adm Date: 5 Loc: Room: [address] [place] [address] Type: ADM IN Attending Dr: Mariajose Alfred MD Copies to: ~ Date of Service: 08/24/2024 Subjective Subjective Narrative: Patient was seen and examined at bedside. She remained afebrile, no leukocytosis, signs of dehydration on chemistry, ANTONIO again and mild hypercalcemia. Clinically she seems to be doing great so far, did not sleep welllast night though, however no events of agitation or hallucinations as prior nights. She is sitting in the chair, drapes open, conversant, seem happy and cooperative. Alert, awake, oriented to year, time, was not sure much about the place (said [place]), she lives in [place]. Family members come and spend timewith her here, tells me she had fun last night here with family talk. She is excited about her new table with 6 chairs that she got. Doing well overall. Continue current management. Exam Physical Exam Vital Signs: Temp Pulse Resp BP Pulse Ox O2 Del Method 97.4 F L 76 20 162/89 H 96 Room Air 08/24/24 07:25 08/24/24 07:25 08/24/24 07:25 08/24/24 07:25 08/24/24 07:08/24/24 07:25 Narrative: Const General: cooperative HEENT Normal oropharyngeal mucosa without any ulcers or exudates Eyes: Conjunctiva normal Pulmonary Auscultation: clear to auscultation , no crackles, no wheezes Cardiovascular Rate: normal rate Rhythm: regular rhythm Heart Sounds: S1 normal, S2 normal and no murmurs GI Inspection: non-distended Palpation: soft, not firm and nontender. No rigidity or rebound. Deferred Neuro General: alert, awake and oriented, close to baseline. No obvious new focal deficit Musculoskeletal: cast on R UE, recent fracture from fall at home (was present onadmission) Extrem General: no cyanosis, no pedal edema Psych Appearance: calm and cooperative. Objective Lab Results 08/24/24 04:40 08/24/24 04:40 Microbiology Results Microbiology 08/21/24 00:57 Blood - Right Antecubital Blood Culture - Preliminary No Growth 3 Days 08/20/24 21:19 Blood - Left Antecubital Blood Culture - Preliminary No Growth 3 Days 08/20/24 21:36 Urine - Clean-Voided Midstream Urine Culture - Final Pseudomonas aeruginosa Meds Allergies and Active Meds Allergies Sulfa (Sulfonamide Antibiotics) Allergy (Verified 08/20/24 19:40) Difficulty Breathing sulfamethoxazole (From Bactrim) Allergy (Verified 08/20/24 19:40) Difficulty Breathing trimethoprim (From Bactrim) Allergy (Verified 08/20/24 19:40) Difficulty Breathing Active Meds: Active Medications Generic Name Dose Route Start Last Admin Trade Name Freq PRN Reason Stop Dose Admin Acetaminophen 1,000 mg 08/21/24 00:05 08/24/24 04:51 Acetaminophen 500 Mg Tablet PO 08/21/25 00:04 1,000 mg Q6HR PRN Administration Pain Scale 1 - 3 or fever Alprazolam 1 mg 08/23/24 22:00 08/23/24 22:20 Alprazolam 0.5 Mg Tablet PO 02/19/25 21:59 1 mg QHS LLOYD Administration Amlodipine Besylate 5 mg 08/24/24 09:00 08/24/24 08:04 Amlodipine 5 Mg Tablet PO 08/24/25 08:59 5 mg DAILY LLOYD Administration Aspirin 81 mg 08/21/24 09:00 08/24/24 08:04 Aspirin 81 Mg Tab.Chew PO 08/21/25 08:59 81 mg DAILY LLOYD Administration Carbidopa/Levodopa 1 tab 08/21/24 09:00 08/24/24 08:04 Carbidopa/Levodopa 10-100 Mg 1 Tab Tablet PO 08/21/25 08:59 1 tab TID LLOYD Administration Heparin Sodium (Porcine) 5,000 unit 08/21/24 09:00 08/24/24 08:04 Heparin 5,000 Unit/Ml Vial SUBCUT 08/21/25 08:59 5,000 unit Q12HR LLOYD Administration Hydralazine HCl 10 mg 08/23/24 07:08 Hydralazine 20 Mg/Ml Vial IV-PUSH 08/23/25 07:07 Q4H PRN if SBP > 185 Hydrochlorothiazide 25 mg 08/22/24 09:00 08/24/24 08:04 Hydrochlorothiazide 25 Mg Tablet PO 08/22/25 08:59 25 mg DAILY LLOYD Administration Meropenem 1 gm in 100 mls @ 33.333 mls/hr 08/23/24 02:00 08/24/24 06:01 Merrem IV Infused Q12H LLOYD Infusion Lactated Ringer's 1,000 mls @ 75 mls/hr 08/24/24 07:30 08/24/24 08:05 Lactated Ringers IV 08/25/24 10:09 75 mls/hr .[id number] LLOYD Administration Lisinopril 20 mg 08/22/24 09:00 08/23/24 09:19 Lisinopril 20 Mg Tablet PO 08/22/25 08:59 20 mg DAILY LLOYD Administration Ondansetron HCl 4 mg 08/21/24 00:05 Ondansetron 4 Mg/2 Ml Vial IV-PUSH 08/21/25 00:04 Q6H PRN Nausea And Vomiting Pantoprazole Sodium 40 mg 08/21/24 09:00 08/24/24 08:04 Pantoprazole 40 Mg Tablet.Dr PO 08/21/25 08:59 40 mg QAM LLOYD Administration Potassium Chloride 20 meq 08/22/24 09:00 08/24/24 08:04 Potassium Chloride Er 20 Meq Tab.Er.Prt PO 08/22/25 08:59 20 meq DAILY LLOYD Administration Quetiapine Fumarate 25 mg 08/23/24 22:00 08/23/24 22:20 Quetiapine Fumarate 25 Mg Tablet PO 08/23/25 21:59 25 mg QHS LLOYD Administration Quetiapine Fumarate 25 mg 08/23/24 14:01 Quetiapine Fumarate 25 Mg Tablet PO 08/23/25 20:59 BID PRN Agitation Rasagiline 1 mg 08/21/24 09:00 08/24/24 08:04 Rasagiline 1 Mg Tablet PO 08/21/25 08:59 1 mg DAILY LLOYD Administration Ropinirole HCl 0.25 mg 08/21/24 22:00 08/23/24 22:20 Ropinirole 0.25 Mg Tablet PO 08/21/25 21:59 0.25 mg QHS LLOYD Administration Sodium Chloride 0 ml 08/20/24 19:40 08/24/24 02:11 Sodium Chloride 0.9 % 10 Ml Syringe IV-PUSH 08/20/25 19:39 10 ml PRN PRN Administration Flush Sodium Chloride 0 ml 08/21/24 06:00 08/24/24 06:01 Sodium Chloride 0.9 % 10 Ml Syringe IV-PUSH 08/21/25 05:59 10 ml QSHIFT LLOYD Administration A&P - Hospitalist Assessment/Plan (1) ANTONIO (acute kidney injury): (2) Metabolic encephalopathy: (3) UTI (urinary tract infection): (4) Hypercalcemia: Plan 1. Acute kidney injury 2. Metabolic encephalopathy 3. Urinary tract infection 4. Hypercalcemia Acute kidney injury * Start IV hydration again, encourage oral intake * Continue to monitor CBC, BMP, magnesium, potassium * Supplements as needed * Hold Lisinopril. Hold HCTZ. Start Amlodipine 5 mg daily for BP control for now, will adjust as needed. Metabolic encephalopathy-much improving * Continue Xanax 1 mg * Continue quetiapine 25 mg QHS, and keep PRN BID as directed * Avoid Haldol and Ativan at this point as she seems stable on this regimen. * Regulate daytime and sleep cycles, open drapes during the day, and follow other measures. Urinary tract infection due to pseudomonal infection * Continue Meropenem * Blood cx negative to date, urine cx did show pseudomonas * Ordered repeat UA which looks better, continue current regimen for now. Hypercalcemia-Calcium has decreased from 11.1 mg/dL to 9.9 mg/dL. * Continue to monitor calcium Chronic conditions HTN?Hydralazine PRN; Would stop HCTZ and lisinopril due to obvious risk of UTI and HCTZ causing AKIand hypercalcemia. Parkinson's disease?Continue carbidopa, levodopa, and rasagiline RLS?Continue ropinirole HLD?Continue use of pravastatin DVT Prophylaxis?Coninue on heparin Diet order?regular diet -Discussed with patient's daughter Kathie at bedside at length for about 25 minutes regarding updatesand treatment plan. We did talk about how Judith did not sleep well but she is more calm and cooperative, Seroquel seems to be helpful, will titrate it as tolerated. We also discussed about UTI, pseudomonas infection and how it requires special AB to cover and concern for resistance with continues to have UTIs. We discussed preventive measures of UTI. Also explained about patient's ANTONIO and hypercalcemia which are risks to deteriorate her clinical condition in case of any infection or can be risky for meds clearance as well. I would switch her BP meds at this point to other agents. Discontinue L isinopril and HCTZ. Start Amlodipine 5 mg daily for now, will titrate and add other agents as needed as tolerated. Plan is inpatient rehab if qualifies. Pt and daughter in agreement with plan. All questions answered. Documented By: Mariajose Alfred MD 08/24/24 10 36 Signed By: 08/24/[address] [place], [place] [id number] Progress note Author Mariajose Alfred [facility] Note Date/Time August 23, 2024 9:2 6pm [facility] [address] [place] [address] Hospitalist Progress Note Signed Patient: Judith Land MR#: [id number] : 1945 Acct:[id number] Age/Sex: 79 / F Adm Date: 5 Loc: 3T Room: [address] [place] [address] Type: ADM IN Attending Dr: Mariajose Alfred MD Copies to: ~ Date of Service: 08/23/2024 Subjective Subjective Narrative: Patient was examined near bedside. Patient's daughter was present as well. Patient shows improvement regarding altered mental status. Patient does state that she feels foggy at times. She is oriented to her name and year. Patient denies fever but has been feeling chills. Patient denies urinary urgency, pain, and burning. Patient had a bowel movement yesterday. She denies abdominal pain. Denies dizziness and fatigue. Exam Physical Exam Vital Signs: Temp Pulse Resp BP Pulse Ox O2 Del Method 98.2 F 81 16 187/79 H 95 Room Air 08/23/24 12:33 08/23/24 12:33 08/23/24 12:33 08/23/24 12:33 08/23/24 12:33 08/23/24 12:33 Const General: cooperative, no acute distress and not combative Orientation: not confused HEENT Head: normal to inspection, normocephalic and atraumatic Resp Effort & Inspection: normal respiratory effort Auscultation: clear to auscultation bilaterally, no crackles, no rales, no rhonchi and no wheezes Cardio Jugular venous pressure: no JVD Rate: regular rate Rhythm: regular rhythm Heart Sounds: no gallops, no murmurs and no rubs GI Inspection: normal to inspection Palpation: no guarding and nontender Auscultation: normal bowel sounds Neuro General: patient alert and moves all extremities Cognition: normal cognition Objective Lab Results 08/22/24 09:55 08/23/24 06:42 Microbiology Results Microbiology 08/20/24 21:36 Urine - Clean-Voided Midstream Urine Culture - Final Pseudomonas aeruginosa 08/21/24 00:57 Blood - Right Antecubital Blood Culture - Preliminary No Growth 2 Days 08/20/24 21:19 Blood - Left Antecubital Blood Culture - Preliminary No Growth 2 Days Meds Allergies and Active Meds Allergies Sulfa (Sulfonamide Antibiotics) Allergy (Verified 08/20/24 19:40) Difficulty Breathing sulfamethoxazole (From Bactrim) Allergy (Verified 08/20/24 19:40) Difficulty Breathing trimethoprim (From Bactrim) Allergy (Verified 08/20/24 19:40) Difficulty Breathing Active Meds: Active Medications Generic Name Dose Route Start Last Admin Trade Name Freq PRN Reason Stop Dose Admin Acetaminophen 1,000 mg 08/21/24 00:05 08/23/24 11:02 Acetaminophen 500 Mg Tablet PO 08/21/25 00:04 1,000 mg Q6HR PRN Administration Pain Scale 1 - 3 or fever Alprazolam 1 mg 08/23/24 22:00 Alprazolam 0.5 Mg Tablet PO 02/19/25 21:59 QHS LLOYD Aspirin 81 mg 08/21/24 09:00 08/23/24 09:19 Aspirin 81 Mg Tab.Chew PO 08/21/25 08:59 81 mg DAILY LLOYD Administration Carbidopa/Levodopa 1 tab 08/21/24 09:00 08/23/24 09:19 Carbidopa/Levodopa 10-100 Mg 1 Tab Tablet PO 08/21/25 08:59 1 tab TID LLOYD Administration Gabapentin 300 mg 08/21/24 09:00 08/22/24 12:11 Gabapentin 300 Mg Capsule PO 08/21/25 08:59 Not Given BID LLOYD Heparin Sodium (Porcine) 5,000 unit 08/21/24 09:00 08/23/24 09:19 Heparin 5,000 Unit/Ml Vial SUBCUT 08/21/25 08:59 5,000 unit Q12HR LLOYD Administration Hydralazine HCl 10 mg 08/23/24 07:08 Hydralazine 20 Mg/Ml Vial IV-PUSH 08/23/25 07:07 Q4H PRN if SBP > 185 Hydrochlorothiazide 25 mg 08/22/24 09:00 08/23/24 09:19 Hydrochlorothiazide 25 Mg Tablet PO 08/22/25 08:59 25 mg DAILY LLOYD Administration Meropenem 1 gm in 100 mls @ 33.333 mls/hr 08/23/24 02:00 08/23/24 01:51 Merrem IV 33.33 mls/hr Q12H LLOYD Administration Lisinopril 20 mg 08/22/24 09:00 08/23/24 09:19 Lisinopril 20 Mg Tablet PO 08/22/25 08:59 20 mg DAILY LLOYD Administration Ondansetron HCl 4 mg 08/21/24 00:05 Ondansetron 4 Mg/2 Ml Vial IV-PUSH 08/21/25 00:04 Q6H PRN Nausea And Vomiting Pantoprazole Sodium 40 mg 08/21/24 09:00 08/23/24 09:19 Pantoprazole 40 Mg Tablet.Dr PO 08/21/25 08:59 40 mg QAM LLOYD Administration Potassium Chloride 20 meq 08/22/24 09:00 08/23/24 09:19 Potassium Chloride Er 20 Meq Tab.Er.Prt PO 08/22/25 08:59 20 meq DAILY LLOYD Administration Quetiapine Fumarate 25 mg 08/23/24 22:00 Quetiapine Fumarate 25 Mg Tablet PO 08/23/25 21:59 QHS LLOYD Rasagiline 1 mg 08/21/24 09:00 08/23/24 09:19 Rasagiline 1 Mg Tablet PO 08/21/25 08:59 1 mg DAILY LLOYD Administration Ropinirole HCl 0.25 mg 08/21/24 22:00 08/22/24 21:40 Ropinirole 0.25 Mg Tablet PO 08/21/25 21:59 0.25 mg QHS LLOYD Administration Sodium Chloride 0 ml 08/20/24 19:40 Sodium Chloride 0.9 % 10 Ml Syringe IV-PUSH 08/20/25 19:39 PRN PRN Flush Sodium Chloride 0 ml 08/21/24 06:00 08/23/24 05:25 Sodium Chloride 0.9 % 10 Ml Syringe IV-PUSH 08/21/25 05:59 Not Given QSHIFT LLOYD A&P - Hospitalist Assessment/Plan (1) ANTONIO (acute kidney injury): (2) Metabolic encephalopathy: (3) UTI (urinary tract infection): (4) Hypercalcemia: Plan 1. Acute kidney injury 2. Metabolic encephalopathy 3. Urinary tract infection 4. Hypercalcemia Acute kidney injury-Patient's potassium has decreased to 3.4 L. Anion gap has increased to 15.4 mEq/L. Patient has a decreased magnesium of 1.8 L. * Continue sodium chloride 0.9% saline * Continue to monitor CBC, BMP, magnesium, potassium * Continue Magnesium 2 gm * Continue Potassium chloride 20 meq Metabolic encephalopathy-Patient has had improving mentation. Shows decreased confusion. * Monitor urine and blood culture * Continue Xanax 1 mg * Add quetiapine 25 mg for agitation Urinary tract infection * Meropenem 1 gm in 100 mls * Continue to monitor urine and blood culture * Continue acetaminophen 1000 mg for fever reduction Hypercalcemia-Calcium has decreased from 11.1 mg/dL to 9.9 mg/dL. * Continue to monitor calcium Chronic conditions HTN?Hydralazine 10 mg; Continue HCTZ 25 mg daily; Continue lisinopril 20 mg Parkinson's disease?Continue carbidopa, levodopa, and rasagiline RLS?Continue ropinirole HLD?Continue use of pravastatin Chronic pain?Ketorolac 15 mg DVT Prophylaxis?Coninue on heparin Diet order?regular diet Attending Physician Attestation: I personally reviewed the history, performed the moss elements of the exam, formulated the plan of care and confirmed the written note. I agree with the findings and plan as documented in this note and have edited it if needed to reflect my findings and plan. Case was discussed with daughter at bedside, addressed concerns, neurologist also joined over encounter and plan of care was discussed with neurology team atbedside in the presence of daughter Kathie. Plan as outlined above. Continue to maintain to ensure stability in her condition and no relapse in mentation or worsening behaviors. Rehab has been consulted for evaluation. Mariajose Ortega MD Documented By: Mariajose Alfred MD 08/23/24 12 51 Signed By: <Electronically signed by Mariajose Alfred MD> 08/23/[address] [facility] Work Phone: 1(329) 773-259303-15-2025 [place] [address] Hospitalist Progress Note Signed Patient: Judith Land MR#: [id number] : 1945 Acct:[id number] Age/Sex: 79 / F Adm Date: 5 Loc: Room: [address] [place] [address] Type: ADM IN Attending Dr: Mariajose Alfred MD Copies to: ~ Date of Service: 08/23/2024 Subjective Subjective Narrative: Patient was examined near bedside. Patient's daughter was present as well. Patient shows improvement regarding altered mental status. Patient does state that she feels foggy at times. She is orientedto her name and year. Patient denies fever but has been feeling chills. Patient denies urinary urgency, pain, and burning. Patient had a bowel movement yesterday. She denies abdominal pain. Denies dizziness and fatigue. Exam Physical Exam Vital Signs: Temp Pulse Resp BP Pulse Ox O2 Del Method 98.2 F 81 16 187/79 H 95 Room Air 08/23/24 12:33 08/23/24 12:33 08/23/24 12:33 08/23/24 12:33 08/23/24 12:33 08/23/24 12:33 Const General: cooperative, no acute distress and not combative Orientation: not confused HEENT Head: normal to inspection, normocephalic and atraumatic Resp Effort & Inspection: normal respiratory effort Auscultation: clear to auscultation bilaterally, no crackles, no rales, no rhonchi and no wheezes Cardio Jugular venous pressure: no JVD Rate: regular rate Rhythm: regular rhythm Heart Sounds: no gallops, no murmurs and no rubs GI Inspection: normal to inspection Palpation: no guarding and nontender Auscultation: normal bowel sounds Neuro General: patient alert and moves all extremities Cognition: normal cognition Objective Lab Results 08/22/24 09:55 08/23/24 06:42 Microbiology Results Microbiology 08/20/24 21:36 Urine - Clean-Voided Midstream Urine Culture - Final Pseudomonas aeruginosa 08/21/24 00:57 Blood - Right Antecubital Blood Culture - Preliminary No Growth 2 Days 08/20/24 21:19 Blood - Left Antecubital Blood Culture - Preliminary No Growth 2 Days Meds Allergies and Active Meds Allergies Sulfa (Sulfonamide Antibiotics) Allergy (Verified 08/20/24 19:40) Difficulty Breathing sulfamethoxazole (From Bactrim) Allergy (Verified 08/20/24 19:40) Difficulty Breathing trimethoprim (From Bactrim) Allergy (Verified 08/20/24 19:40) Difficulty Breathing Active Meds: Active Medications Generic Name Dose Route Start Last Admin Trade Name Freq PRN Reason Stop Dose Admin Acetaminophen 1,000 mg 08/21/24 00:05 08/23/24 11:02 Acetaminophen 500 Mg Tablet PO 08/21/25 00:04 1,000 mg Q6HR PRN Administration Pain Scale 1 - 3 or fever Alprazolam 1 mg 08/23/24 22:00 Alprazolam 0.5 Mg Tablet PO 02/19/25 21:59 QHS LLOYD Aspirin 81 mg 08/21/24 09:00 08/23/24 09:19 Aspirin 81 Mg Tab.Chew PO 08/21/25 08:59 81 mg DAILY L[facility]D Administration Carbidopa/Levodopa 1 tab 08/21/24 09:00 08/23/24 09:19 Carbidopa/Levodopa 10-100 Mg 1 Tab Tablet PO 08/21/25 08:59 1 tab TID L[facility]D Administration Gabapentin 300 mg 08/21/24 09:00 08/22/24 12:11 Gabapentin 300 Mg Capsule PO 08/21/25 08:59 Not Given BID L[facility]D Heparin Sodium (Porcine) 5,000 unit 08/21/24 09:00 08/23/24 09:19 Heparin 5,000 Unit/Ml Vial SUBCUT 08/21/25 08:59 5,000 unit Q12HR L[facility]D Administration Hydralazine HCl 10 mg 08/23/24 07:08 Hydralazine 20 Mg/Ml Vial IV-PUSH 08/23/25 07:07 Q4H PRN if SBP > 185 Hydrochlorothiazide 25 mg 08/22/24 09:00 08/23/24 09:19 Hydrochlorothiazide 25 Mg Tablet PO 08/22/25 08:59 25 mg DAILY L[facility]D Administration Meropenem 1 gm in 100 mls @ 33.333 mls/hr 08/23/24 02:00 08/23/24 01:51 Merrem IV 33.33 mls/hr Q12H L[facility]D Administration Lisinopril 20 mg 08/22/24 09:00 08/23/24 09:19 Lisinopril 20 Mg Tablet PO 08/22/25 08:59 20 mg DAILY L[facility]D Administration Ondansetron HCl 4 mg 08/21/24 00:05 Ondansetron 4 Mg/2 Ml Vial IV-PUSH 08/21/25 00:04 Q6H PRN Nausea And Vomiting Pantoprazole Sodium 40 mg 08/21/24 09:00 08/23/24 09:19 Pantoprazole 40 Mg Tablet.Dr PO 08/21/25 08:59 40 mg QAM L[facility]YD Administration Potassium Chloride 20 meq 08/22/24 09:00 08/23/24 09:19 Potassium Chloride Er 20 Meq Tab.Er.Prt PO 08/22/25 08:59 20 meq DAILY L[facility]YD Administration Quetiapine Fumarate 25 mg 08/23/24 22:00 Quetiapine Fumarate 25 Mg Tablet PO 08/23/25 21:59 QHS L[facility]D Rasagiline 1 mg 08/21/24 09:00 08/23/24 09:19 Rasagiline 1 Mg Tablet PO 08/21/25 08:59 1 mg DAILY L[facility]D Administration Ropinirole HCl 0.25 mg 08/21/24 22:00 08/22/24 21:40 Ropinirole 0.25 Mg Tablet PO 08/21/25 21:59 0.25 mg QHS L[facility]D Administration Sodium Chloride 0 ml 08/20/24 19:40 Sodium Chloride 0.9 % 10 Ml Syringe IV-PUSH 08/20/25 19:39 PRN PRN Flush Sodium Chloride 0 ml 08/21/24 06:00 08/23/24 05:25 Sodium Chloride 0.9 % 10 Ml Syringe IV-PUSH 08/21/25 05:59 Not Given QSHIFT [facility] - Hospitalist Assessment/Plan (1) ANTONIO (acute kidney injury): (2) Metabolic encephalopathy: (3) UTI (urinary tract infection): (4) Hypercalcemia: Plan 1. Acute kidney injury 2. Metabolic encephalopathy 3. Urinary tract infection 4. Hypercalcemia Acute kidney injury-Patient's potassium has decreased to 3.4 L. Anion gap has increased to 15.4 mEq/L. Patient has a decreased magnesium of 1.8 L. * Continue sodium chloride 0.9% saline * Continue to monitor CBC, BMP, magnesium, potassium * Continue Magnesium 2 gm * Continue Potassium chloride 20 meq Metabolic encephalopathy-Patient has had improving mentation. Shows decreased confusion. * Monitor urine and blood culture * Continue Xanax 1 mg * Add quetiapine 25 mg for agitation Urinary tract infection * Meropenem 1 gm in 100 mls * Continue to monitor urine and blood culture * Continue acetaminophen 1000 mg for fever reduction Hypercalcemia-Calcium has decreased from 11.1 mg/dL to 9.9 mg/dL. * Continue to monitor calcium Chronic conditions HTN?Hydralazine 10 mg; Continue HCTZ 25 mg daily; Continue lisinopril 20 mg Parkinson's disease?Continue carbidopa, levodopa, and rasagiline RLS?Continue ropinirole HLD?Continue use of pravastatin Chronic pain?Ketorolac 15 mg DVT Prophylaxis?Coninue on heparin Diet order?regular diet Attending Physician Attestation: I personally reviewed the history, performed the moss elements of the exam, formulated the plan of care and confirmed the written note. I agree with the findings and plan as documented in this note and have edited it if needed to reflect my findings and plan. Case was discussed with daughter at bedside, addressed concerns, neurologist also joined over encounter and plan of care was discussed with neurology team atbedside in the presence of daughter Kathie. Plan as outlined above. Continue to maintain to ensure stability in her condition and no relapse in mentation or worsening behaviors. Rehab has been consulted for evaluation. Mariajose Ortega MD Documented By: Mariajose Alfred MD 08/23/24 12 51 Signed By: 08/23/[address] [place], [place] [id number] Progress note Author Baljeet Rao [facility] Note Date/Time August 23, 2024 9:4 2am [facility] [address] [place] [address] Neurology Progress Note Signed Patient: Judith Land MR#: [id number] : 1945 Acct:[id number] Age/Sex: 79 / F Adm Date: 5 Loc: Room: [address] [place] [address] Type: ADM IN Attending Dr: Mariajose Alfred MD Copies to: ~ Date of Service: 08/23/2024 Subjective Subjective Narrative: To be agitated frustrated and restless yesterday evening. The patient was notedto have a recommendation of as needed Seroquel by both Dr. Fuentes and Dr. Monroe for agitation which I think was reasonable idea. Patient told to continue Parkinson's medication. Source of delirium likely related to altered sleep-wakecycle, neurodegenerative condition and recurrent UTIs. No other acute abnormalities overnight. Patient did get some doses of Haldol yesterday which seem to allow her to get some rest as well. Her daughter is in the room today and provides history. Patient doing much better this morning as compared to yesterday. Review of Systems Review of Systems Unobtainable due to mental status Exam Physical Exam Vital Signs: Temp Pulse Resp BP Pulse Ox O2 Del Method 97.5 F L 79 18 183/76 H 94 L Room Air 08/23/24 07:36 08/23/24 07:36 08/23/24 07:36 08/23/24 07:36 08/23/24 07:36 08/23/24 07:36 Narrative: EXAMINATION: Blood pressure has been quite elevated, 189/74 last check. Intermittently tachycardic, 125 earlier today and then 104 last check. She is uncomfortable and in some distress. Restless in bed, kicking the sheets off, family members putting damp rags on her face. No significant limb edema. Work of breathing appears normal. Visualized skin shows age-related findings. She is alert. Attention is severely impaired. She is mumbling but most her speech is intelligible. Pupils appear equal. Hearing is okay. I do not detect significant facial weakness. Muscle bulk is moderately globally reduced. Muscle tone is mildly increased in all limbs. I cannot tell if she has resting tremors because she is constantly moving. She seems to have full strength in all extremities, not formally tested but she is pulling herself around the bed with all her limbs. Light touch is intact. None of her limbs appear to be ataxic. Objective Vital Signs Vital Signs: Vital Signs - 24 hr 08/22/24 10:30 08/22/24 16:00 08/22/24 20:00 Temperature 99.5 F H 98.1 F 98.5 F Pulse Rate 125 H 104 H 106 H Respiratory Rate 18 16 18 Blood Pressure 148/92 H 189/74 H 192/83 H 02 Sat by Pulse Oximetry 92 L 92 L 92 L Oxygen Delivery Method Room Air Room Air Room Air 08/22/24 20:00 08/23/24 00:00 08/23/24 04:34 Temperature 99.6 F H 98.4 F Pulse Rate 72 98 Respiratory Rate 18 18 Blood Pressure 177/80 H 162/77 H 02 Sat by Pulse Oximetry 95 92 L Oxygen Delivery Method Room Air Room Air Room Air 08/23/24 04:35 08/23/24 07:01 08/23/24 07:36 Temperature 97.5 F L Pulse Rate 79 Respiratory Rate 18 Blood Pressure 183/76 H 02 Sat by Pulse Oximetry 94 L Oxygen Delivery Method Room Air Room Air Room Air Labs 08/22/24 09:55 08/23/24 06:42 Therapy Recommendations Therapy Recommendations: OT Recommendations OT Recommended Discharge Inpatient Rehab Unit Location PT Recommendations PT Recommended Discharge Inpatient Rehab Unit Location PT Recommended Services at Physical Therapy,Occupational Therapy,01/01 Discharge Supervision Assessment/Plan (1) Parkinsons disease: Qualifiers: Dyskinesia presence: without dyskinesia Fluctuating manifestations: without fluctuating manifestations Qualified Code(s): G20.A1 - Parkinson's disease without dyskinesia, without mention of fluctuations (2) Altered mental status: Qualifiers: Altered mental status type: delirium Qualified Code(s): R41.0 - Disorientation, unspecified Plan ASSESSMENT: 79-year-old woman with advanced Parkinson's disease. Currently she has acute hyperactive delirium. I think this is mostly related tosleep deprivation and the hospital setting her unfamiliar surroundings. She would be at risk for this given her neurodegenerative disorder. She has not been febrile. Her previous Pseudomonas urinary tract infection has presumably been treated. Do not suspect cefepime induced neurotoxicity because I think sheonly got a dose or two of it. Mild hypercalcemia is her only metabolic derangement. 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 PLAN: 1. optimize sleep/wake cycle 2. Can continue her home parkinsonian medications: Carbidopa?levodopa 10-100 mg3 times daily, ropinirole 0.25 mg 3 times daily, rasagiline 1 mg daily 3. A sitter or family member who was able to calm her would be preferred to medications for the agitation. If necessary, can use small doses of benzodiazepine or neuroleptic medication (eg seroquel 25 mg po qhs). I would suggest 25 mg of Seroquel p.o. twice daily as needed for agitation. I would suggest resumption of as needed Xanax given her longstanding history of utilization of this medication. I would suggest discontinuation of gabapentin and muscle relaxers. Extensive discussion had today with the patient, daughter and primary care team. Patient noticed to be improving substantially. We did talk about the fact thatthere would likely be fluctuations throughout the next couple of days and weeks. Given her improvement we are hopeful she can get to rehab. Neurology will sign off. Please call with any questions or concerns. Thank youfor consultation. Documented By: Baljeet Rao DO [id number] Signed By: <Electronically signed by Baljeet Rao DO> 08/23/24 0942 [facility] Work Phone: 1(113) [phone] [place] [address] Neurology Progress Note Signed Patient: Judith Land MR#: [id number] : 1945 Acct:[id number] Age/Sex: 79 / F Adm Date: 5 Loc: Room: [address] [place] [address] Type: ADM IN Attending Dr: Mariajose Alfred MD Copies to: ~ Date of Service: 08/23/2024 Subjective Subjective Narrative: To be agitated frustrated and restless yesterday evening. The patient was notedto have a recommendation of as needed Seroquel by both Dr. Fuentes and Dr. Monroe for agitation which I think was reasonable idea. Patient told to continue Parkinson's medication. Source of delirium likely related to altered sleep- wakecycle, neurodegenerative condition and recurrent UTIs. No other acute abnormalities overnight. Patient did get some doses of Haldol yesterday which seem to allow her to get some rest as well. Her daughter is in the room today and provides history. Patient doing much better this morning as compared to yesterday. Review of Systems Review of Systems Unobtainable due to mental status Exam Physical Exam Vital Signs: Temp Pulse Resp BP Pulse Ox O2 Del Method 97.5 F L 79 18 183/76 H 94 L Room Air 08/23/24 07:36 08/23/24 07:36 08/23/24 07:36 08/23/24 07:36 08/23/24 07:36 08/23/24 07:36 Narrative: EXAMINATION: Blood pressure has been quite elevated, 189/74 last check. Intermittently tachycardic, 125 earlier today and then 104 last check. She is uncomfortable and in some distress. Restless in bed, kicking the sheets off, family members putting damp rags on her face. No significant limb edema. Work of breathing appears normal. Visualized skin shows age-related findings. She is alert. Attention is severely impaired. She is mumbling but most her speech is intelligible. Pupils appear equal. Hearing is okay. I do not detect significant facial weakness. Muscle bulk is moderately globally reduced. Muscle tone is mildly increased in all limbs. I cannot tell if she has resting tremors because she is constantly moving. She seems to have full strength in all extremities, not formally tested but she is pulling herself around the bed with all her limbs. Light touch is intact. None of her limbs appear to beataxic. Objective Vital Signs Vital Signs: Vital Signs - 24 hr 08/22/24 10:30 08/22/24 16:00 08/22/24 20:00 Temperature 99.5 F H 98.1 F 98.5 F Pulse Rate 125 H 104 H 106 H Respiratory Rate 18 16 18 Blood Pressure 148/92 H 189/74 H 192/83 H 02 Sat by Pulse Oximetry 92 L 92 L 92 L Oxygen Delivery Method Room Air Room Air Room Air 08/22/24 20:00 08/23/24 00:00 08/23/24 04:34 Temperature 99.6 F H 98.4 F Pulse Rate 72 98 Respiratory Rate 18 18 Blood Pressure 177/80 H 162/77 H 02 Sat by Pulse Oximetry 95 92 L Oxygen Delivery Method Room Air Room Air Room Air 08/23/24 04:35 08/23/24 07:01 08/23/24 07:36 Temperature 97.5 F L Pulse Rate 79 Respiratory Rate 18 Blood Pressure 183/76 H 02 Sat by Pulse Oximetry 94 L Oxygen Delivery Method Room Air Room Air Room Air Labs 08/22/24 09:55 08/23/24 06:42 Therapy Recommendations Therapy Recommendations: OT Recommendations OT Recommended Discharge Inpatient Rehab Unit Location PT Recommendations PT Recommended Discharge Inpatient Rehab Unit Location PT Recommended Services at Physical Therapy,Occupational Therapy,01/01 Discharge Supervision Assessment/Plan (1) Parkinsons disease: Qualifiers: Dyskinesia presence: without dyskinesia Fluctuating manifestations: without fluctuating manifestations Qualified Code(s): G20.A1 - Parkinson's disease without dyskinesia, without mention of fluctuations (2) Altered mental status: Qualifiers: Altered mental status type: delirium Qualified Code(s): R41.0 - Disorientation, unspecified Plan ASSESSMENT: 79-year-old woman with advanced Parkinson's disease. Currently she has acute hyperactive delirium. I think this is mostly related tosleep deprivation and the hospital setting her unfamiliar surroundings. She would be at risk for this given her neurodegenerative disorder. She has not been febrile. Her previous Pseudomonas urinary tract infection has presumably been treated. Do not suspect cefepime induced neurotoxicity because I think sheonly got a dose or two of it. Mild hypercalcemia is her only metabolic derangement. 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 PLAN: 1. optimize sleep/wake cycle 2. Can continue her home parkinsonian medications: Carbidopa?levodopa 10-100 mg3 times daily, ropinirole 0.25 mg 3 times daily, rasagiline 1 mg daily 3. A sitter or family member who was able to calm her would be preferred to medications for the agitation. If necessary, can use small doses of benzodiazepine or neuroleptic medication (eg seroquel 25 mg po qhs). I would suggest 25 mg of Seroquel p.o. twice daily as needed for agitation. I would sug gest resumption of as needed Xanax given her longstanding history of utilization of this medication. I would suggest discontinuation of gabapentin and muscle relaxers. Extensive discussion had today with the patient, daughter and primary care team. Patient noticed yannick improving substantially. We did talk about the fact thatthere would likely be fluctuations throughout the next couple of days and weeks. Given her improvement we are hopeful she can get to rehab. Neurology will sign off. Please call with any questions or concerns. Thank youfor consultation. Documented By: Baljeet Rao DO 5 [id number] Signed By: 08/23/24 0942 [facility]03-15-2025 Consult note Author Ramsey Monroe [facility] Note Date/Time August 23, 2024 7:3 1am [facility] [address] [place] [address] Physiatry (Rehab) Consult Note Signed Patient: Judith Land MR#: [id number] : 1945 Acct:[id number] Age/Sex: 79 / F Adm Date: 5 Loc: Room: [address] [place] [address] Type: ADM IN Attending Dr: Mariajose Alfred MD Copies to: MD Ramsey Arroyo MD Obaydah M Daromar, MD~ Etiologic Dx/Impairment Group Narrative Narrative: PD HPI Consult Date: 08/22/24 Requesting Physician: Mariajose Alfred MD Primary Care Provider: Kavon Sams MD Consult Narrative Reason for consult: decline, agitated HPI: Ms. Land is a 79 year old female PMH as below including PD presenting with multifactorial functional decline. Has had UTI and on/off several antibiotics over past month or so with waxing and waning of her mental status. UA repeated on presentation, previous cultures + pseudomonas and placed on cefepime. This morning she has 1:1 at bedside. She is confused and disoriented. She is not redirectable and is agitated. 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 Family History Mother Stroke Father Cancer Lung Son Cancer Lymphoma Social History Smoking Status: Former smoker (quit in 2018) Tobacco Type: cigarettes Substance Use Type: None Meds Medications and Allergies Allergies Sulfa (Sulfonamide Antibiotics) Allergy (Verified 08/20/24 19:40) Difficulty Breathing sulfamethoxazole (From Bactrim) Allergy (Verified 08/20/24 19:40) Difficulty Breathing trimethoprim (From Bactrim) Allergy (Verified 08/20/24 19:40) Difficulty Breathing Home Medications alprazolam 1 mg tablet (Xanax) 1 mg PO QHS 08/20/24 [History Confirmed 08/20/24] ropinirole 0.25 mg tablet 0.25 mg PO TID 08/20/24 [History Confirmed 08/20/24] ascorbic acid (vitamin C) 1,000 mg capsule 1 g PO DAILY 08/21/24 [History Confirmed 08/21/24] aspirin 81 mg chewable tablet 81 mg PO DAILY 08/21/24 [History Confirmed 08/21/24] carbidopa 10 mg-levodopa 100 mg tablet (Sinemet) 1 tab PO TID 08/21/24 [History Confirmed 08/21/24] cholecalciferol (vitamin D3) 125 mcg (5,000 unit) capsule 125 mcg PO DAILY 08/21/24 [History Confirmed 08/21/24] gabapentin 300 mg capsule 300 mg PO TID 08/21/24 [History Confirmed 08/21/24] lisinopril 20 mg-hydrochlorothiazide 25 mg tablet 1 tab PO DAILY 08/21/24 [History Confirmed 08/21/24] lutein 25 mg-zeaxanthin 5 mg capsule 1 cap PO DAILY 08/21/24 [History Confirmed 08/21/24] multivitamin 1 tab PO DAILY 08/21/24 [History Confirmed 08/21/24] pantoprazole 40 mg tablet,delayed release 40 mg PO QAM 08/21/24 [History Confirmed 08/21/24] potassium chloride 20 mEq tablet,extended release(part/cryst) (Klor-Con M) 20 meq PO BID 08/21/24 [History Confirmed 08/21/24] pravastatin 20 mg tablet 20 mg PO DAILY 08/21/24 [History Confirmed 08/21/24] rasagiline 1 mg tablet 1 mg PO DAILY 08/21/24 [History Confirmed 08/21/24] zinc gluconate 50 mg tablet 50 mg PO DAILY 08/21/24 [History Confirmed 08/21/24] Exam Physical Exam Vital Signs: Temp Pulse Resp BP Pulse Ox O2 Del Method 99.5 F H 125 H 18 148/92 H 92 L Room Air 08/22/24 10:30 08/22/24 10:30 08/22/24 10:30 08/22/24 10:30 08/22/24 10:30 08/22/24 10:30 Narrative: Restless and agitated Trying to get up out of bed 1:1 at bedside Tangential Moves extremities against gravity Results - Phys. Rehab Labs Labs: Laboratory Results - last 24 hr 08/22/24 09:55 Corrected WBC 9.7 RBC 4.24 Hgb 13.3 Hct 38.9 MCV 91.8 MCH 31.3 MCHC 34.1 RDW 14.5 Plt Count 319 MPV 9.5 PHA Creatinine Clear 33.53 Sodium 142 Potassium 3.5 Chloride 107 Carbon Dioxide 24.0 Anion Gap 14.5 BUN 16 Creatinine 1.17 Est GFR (CKD-EPI) 47.762 Glucose 72 Calcium 11.1 H PTH Intact 56.2 Assessment/Plan (1) Hypercalcemia: (2) Parkinsons disease: (3) Metabolic encephalopathy: (4) UTI (urinary tract infection): (5) ANTONIO (acute kidney injury): (6) HTN (hypertension): (7) Anxiety: Plan Ms. Land is a 79 year old female PMH as below including PD presenting with multifactorial functional decline. -Unclear etiology of current agitation, likely multifactorial, unfamiliar setting, ? cefepime, poor sleep/wake cycle, PD. -Consider seroquel as needed if will take oral meds. avoid haldol with PD. -Will f/u Sunday for IRF admit if can participate in therapy Patient was personally seen by me, Dr. Monroe, on the day of encounter, reviewed the history and the relevant portions of the chart, including current orders, allied health and integrity consultant notes, labs/imaging and performed moss elements of exam and I formulated the plan of care and facilitated the medical decision making. I completed a substantive portion of this encounter, the medical decision makingportion of this note in its entirety, including Allied health note review, nursing note review, integrity consultant note review, discussion with nursing and case management, and more than 50% of my time was spent on counseling and coordination of care, time spent 40 minutes Documented By: Ramsey Monroe MD 08/22/24 4305 Signed By: <Electronically signed by Ramsey Monroe MD> 08/23/24 0731 [facility] Work Phone: [phone] [place] [address] Physiatry (Rehab) Consult Note Signed Patient: Judith Land MR#: [id number] : 1945 Acct:[id number] Age/Sex: 79 / F Adm Date: 5 Loc: Room: [address] [place] [address] Type: ADM IN Attending Dr: Mariajose Alfred MD Copies to: MD Ramsey Arroyo MD Obaydah M Daromar, MD~ Etiologic Dx/Impairment Group Narrative Narrative: PD HPI Consult Date: 08/22/24 Requesting Physician: Mariajose Alfred MD Primary Care Provider: Kavon Sams MD Consult Narrative Reason for consult: decline, agitated HPI: Ms. Land is a 79 year old female PMH as below including PD presenting with multifactorial functional decline. Has had UTI and on/off several antibiotics over past month or so with waxing and waning of her mental status. UA repeated on presentation, previous cultures + pseudomonas and placed on cefepime. This morning she has 1:1 at bedside. She is confused and disoriented. She is not redirectable and is agitated. 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 Family History Mother Stroke Father Cancer Lung Son Cancer Lymphoma Social History Smoking Status: Former smoker (quit in 2018) Tobacco Type: cigarettes Substance Use Type: None Meds Medications and Allergies Allergies Sulfa (Sulfonamide Antibiotics) Allergy (Verified 08/20/24 19:40) Difficulty Breathing sulfamethoxazole (From Bactrim) Allergy (Verified 08/20/24 19:40) Difficulty Breathing trimethoprim (From Bactrim) Allergy (Verified 08/20/24 19:40) Difficulty Breathing Home Medications alprazolam 1 mg tablet (Xanax) 1 mg PO QHS 08/20/24 [History Confirmed 08/20/24] ropinirole 0.25 mg tablet 0.25 mg PO TID 08/20/24 [History Confirmed 08/20/24] ascorbic acid (vitamin C) 1,000 mg capsule 1 g PO DAILY 08/21/24 [History Confirmed 08/21/24] aspirin 81 mg chewable tablet 81 mg PO DAILY 08/21/24 [History Confirmed 08/21/24] carbidopa 10 mg-levodopa 100 mg tablet (Sinemet) 1 tab PO TID 08/21/24 [History Confirmed 08/21/24] cholecalciferol (vitamin D3) 125 mcg (5,000 unit) capsule 125 mcg PO DAILY 08/21/24 [History Confirmed 08/21/24] gabapentin 300 mg capsule 300 mg PO TID 08/21/24 [History Confirmed 08/21/24] lisinopril 20 mg-hydrochlorothiazide 25 mg tablet 1 tab PO DAILY 08/21/24 [History Confirmed 08/21/24] lutein 25 mg-zeaxanthin 5 mg capsule 1 cap PO DAILY 08/21/24 [History Confirmed 08/21/24] multivitamin 1 tab PO DAILY 08/21/24 [History Confirmed 08/21/24] pantoprazole 40 mg tablet,delayed release 40 mg PO QAM 08/21/24 [History Confirmed 08/21/24] potassium chloride 20 mEq tablet,extended release(part/cryst) (Klor-Con M) 20 meq PO BID 08/21/24 [History Confirmed 08/21/24] pravastatin 20 mg tablet 20 mg PO DAILY 08/21/24 [History Confirmed 08/21/24] rasagiline 1 mg tablet 1 mg PO DAILY 08/21/24 [History Confirmed 08/21/24] zinc gluconate 50 mg tablet 50 mg PO DAILY 08/21/24 [History Confirmed 08/21/24] Exam Physical Exam Vital Signs: Temp Pulse Resp BP Pulse Ox O2 Del Method 99.5 F H 125 H 18 148/92 H 92 L Room Air 08/22/24 10:30 08/22/24 10:30 08/22/24 10:30 08/22/24 10:30 08/22/24 10:30 08/22/24 10:30 Narrative: Restless and agitated Trying to get up out of bed 1:1 at bedside Tangential Moves extremities against gravity Results - Phys. Rehab Labs Labs: Laboratory Results - last 24 hr 08/22/24 09:55 Corrected WBC 9.7 RBC 4.24 Hgb 13.3 Hct 38.9 MCV 91.8 MCH 31.3 MCHC 34.1 RDW 14.5 Plt Count 319 MPV 9.5 PHA Creatinine Clear 33.53 Sodium 142 Potassium 3.5 Chloride 107 Carbon Dioxide 24.0 Anion Gap 14.5 BUN 16 Creatinine 1.17 Est GFR (CKD-EPI) 47.762 Glucose 72 Calcium 11.1 H PTH Intact 56.2 Assessment/Plan (1) Hypercalcemia: (2) Parkinsons disease: (3) Metabolic encephalopathy: (4) UTI (urinary tract infection): (5) ANTONIO (acute kidney injury): (6) HTN (hypertension): (7) Anxiety: Plan Ms. Land is a 79 year old female PMH as below including PD presenting with multifactorial functional decline. -Unclear etiology of current agitation, likely multifactorial, unfamiliar setting, ? cefepime, poorsleep/wake cycle, PD. -Consider seroquel as needed if will take oral meds. avoid haldol with PD. -Will f/u Sunday for IRF admit if can participate in therapy Patient was personally seen by me, Dr. Monroe, on the day of encounter, reviewed the history and therelevant portions of the chart, including current orders, allied health and integrity consultant notes, labs/imaging and performed moss elements of exam and I formulated the plan of care and facilitated the medical decision making. I completed a substantive portion of this encounter, the medical decision makingportion of this note in its entirety, including Allied health note review, nursing note review, integrity consultant note review,discussion with nursing and case management, and more than 50% of my time was spent on counseling and coordination of care, time spent 40 minutes Documented By: Ramsey Monroe MD 08/22/24 1734 Signed By: 08/23/[address] [place], [place] [id number] Consult note Author Tony Fuentes [facility] Note Date/Time August 22, 2024 6:[facility] [address] [place] [address] Neurology Consult Note Signed Patient: Judith Land MR#: [id number] : 1945 Acct:[id number] Age/Sex: 79 / F Adm Date: 5 Loc: Room: [address] [place] [address] Type: ADM IN Attending Dr: Mariajose Alfred MD Copies to: DO Kavon Cramer MD Obaydah M Daromar, MD~ HPI Consult Date: 08/22/24 [place] Tender: Tony Fuentes DO [facility] Medical History (Updated 08/22/24 @ 18:15 by Tony Fuentes DO) RLS (restless legs syndrome) CAD (coronary artery disease) TIA (transient ischemic attack) HLD (hyperlipidemia) HTN (hypertension) Parkinsons disease Anxiety Surgical History H/O right wrist surgery fall on 08/15/24 and fractured wrist History of hysterectomy 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 Family History Mother Stroke Father Cancer Lung Son Cancer Lymphoma Social History Smoking Status: Former smoker (quit in 2018) Tobacco Type: cigarettes Substance Use Type: None Meds Medications and Allergies Allergies Sulfa (Sulfonamide Antibiotics) Allergy (Verified 08/20/24 19:40) Difficulty Breathing sulfamethoxazole (From Bactrim) Allergy (Verified 08/20/24 19:40) Difficulty Breathing trimethoprim (From Bactrim) Allergy (Verified 08/20/24 19:40) Difficulty Breathing Home Medications alprazolam 1 mg tablet (Xanax) 1 mg PO QHS 08/20/24 [History Confirmed 08/20/24] ropinirole 0.25 mg tablet 0.25 mg PO TID 08/20/24 [History Confirmed 08/20/24] ascorbic acid (vitamin C) 1,000 mg capsule 1 g PO DAILY 08/21/24 [History Confirmed 08/21/24] aspirin 81 mg chewable tablet 81 mg PO DAILY 08/21/24 [History Confirmed 08/21/24] carbidopa 10 mg-levodopa 100 mg tablet (Sinemet) 1 tab PO TID 08/21/24 [History Confirmed 08/21/24] cholecalciferol (vitamin D3) 125 mcg (5,000 unit) capsule 125 mcg PO DAILY 08/21/24 [History Confirmed 08/21/24] gabapentin 300 mg capsule 300 mg PO TID 08/21/24 [History Confirmed 08/21/24] lisinopril 20 mg-hydrochlorothiazide 25 mg tablet 1 tab PO DAILY 08/21/24 [History Confirmed 08/21/24] lutein 25 mg-zeaxanthin 5 mg capsule 1 cap PO DAILY 08/21/24 [History Confirmed 08/21/24] multivitamin 1 tab PO DAILY 08/21/24 [History Confirmed 08/21/24] pantoprazole 40 mg tablet,delayed release 40 mg PO QAM 08/21/24 [History Confirmed 08/21/24] potassium chloride 20 mEq tablet,extended release(part/cryst) (Klor-Con M) 20 meq PO BID 08/21/24 [History Confirmed 08/21/24] pravastatin 20 mg tablet 20 mg PO DAILY 08/21/24 [History Confirmed 08/21/24] rasagiline 1 mg tablet 1 mg PO DAILY 08/21/24 [History Confirmed 08/21/24] zinc gluconate 50 mg tablet 50 mg PO DAILY 08/21/24 [History Confirmed 08/21/24] Exam Physical Exam Vital Signs: Temp Pulse Resp BP Pulse Ox O2 Del Method 99.5 F H 125 H 18 148/92 H 92 L Room Air 08/22/24 10:30 08/22/24 10:30 08/22/24 10:30 08/22/24 10:30 08/22/24 10:30 08/22/24 10:30 Results - Neuro Laboratory Findings 08/22/24 09:55 08/22/24 09:55 Diagnostic Findings Imaging/Impressions: ITS Impressions Chest X-Ray 08/20/24 20:54 IMPRESSION: No acute process. Impression dictated by: Andrew Henson M.D.08/20/2024 9:48 PM Dictation Location: [place] [address] Therapy Recommendations Therapy Recommendations: OT Recommendations OT Recommended Discharge Inpatient Rehab Unit Location PT Recommendations PT Recommended Discharge Inpatient Rehab Unit Location PT Recommended Services at Physical Therapy,Occupational Therapy,01/01 Discharge Supervision Assessment/Plan (1) Parkinsons disease: Qualifiers: Dyskinesia presence: without dyskinesia Fluctuating manifestations: without fluctuating manifestations Qualified Code(s): G20.A1 - Parkinson's disease without dyskinesia, without mention of fluctuations (2) Altered mental status: Qualifiers: Altered mental status type: delirium Qualified Code(s): R41.0 - Disorientation, unspecified Plan CONSULT REASON: Parkinson's with delirium HPI: 79-year-old woman who came to the emergency department on August 20, 2024. She had reportedly been being treated for UTI for the last 2 months. There were concerns with medication interactions. She was feeling a little confused. Confused for the past 4 5 days according to the daughter. She has been having some nausea and dry heaving and loose stools. Yesterday she was said to be sitting comfortably, without any significant symptoms, and no signs of delirium. Today she has been confused, delirious, and impulsive. And said to be combative towards staff. She has multiple family members in the room at the time of my encounter. They have been attending to her throughout the afternoon. She has been restless, fidgety, snappy, and agitated. They have been trying to get her to sleep all day. The blinds are closed. They think she has been febrile. They are puttingdamp rags on her face which seems to have some alleviating effect for her. Her family members tell me they do not think she has slept in 3 days Home medications include alprazolam 1 mg nightly, ropinirole 0.25 mg 3 times daily, aspirin 81 mg daily, carbidopa?levodopa 10-100 mg 3 times daily, gabapentin 300 mg 3 times daily, rasagiline 1 mg daily, pravastatin 20 mg daily,among others. EXAMINATION: Blood pressure has been quite elevated, 189/74 last check. Intermittently tachycardic, 125 earlier today and then 104 last check. She is uncomfortable and in some distress. Restless in bed, kicking the sheets off, family members putting damp rags on her face. No significant limb edema. Work of breathing appears normal. Visualized skin shows age-related findings. She is alert. Attention is severely impaired. She is mumbling but most her speech is intelligible. Pupils appear equal. Hearing is okay. I do not detect significant facial weakness. Muscle bulk is moderately globally reduced. Muscle tone is mildly increased in all limbs. I cannot tell if she has resting tremors because she is constantly moving. She seems to have full strength in all extremities, not formally tested but she is pulling herself around the bed with all her limbs. Light touch is intact. None of her limbs appear to be ataxic. 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 Currently she has acute hyperactive delirium. I think this is mostly related tosleep deprivation and the hospital setting her unfamiliar surroundings. She would be at risk for this given her neurodegenerative disorder. She has not been febrile. Her previous Pseudomonas urinary tract infection has presumably been treated. Do not suspect cefepime induced neurotoxicity because I think sheonly got a dose or two of it. Mild hypercalcemia is her only metabolic derangement. PLAN: 1. Her family members have been trying to get her to sleep all day, unsuccessfully. At this point in the day I instructed them to open the shades and let the sunlight on her and redirect her and try to keep her comfortable andthen closer to bedtime close the shades and minimize distractions. 2. Can continue her home parkinsonian medications: Carbidopa?levodopa 10-100 mg3 times daily, ropinirole 0.25 mg 3 times daily, rasagiline 1 mg daily 3. A sitter or family member who was able to calm her would be preferred to medications for the agitation. If necessary, can use small doses of benzodiazepine or neuroleptic medication. Any neuroleptic medication would be expected to worsen her underlying parkinsonism. Documented By: Tony Fuentes DO 08/22/24 1235 Signed By: <Electronically signed by Tony Fuentes DO> 08/22/24 9652 [facility] Work Phone: [phone] [phone] [place] [address] Neurology Consult Note Signed Patient: Judith Land MR#: [id number] : 1945 Acct:[id number] Age/Sex: 79 / F Adm Date: 5 Loc: Room: [address] [place] [address] Type: ADM IN Attending Dr: Mariajose Alfred MD Copies to: DO Kavon Cramer MD Obaydah M Daromar, MD~ HPI Consult Date: 08/22/24 [place] Tender: Tony Fuentes DO [facility] Medical History (Updated 08/22/24 @ 18:15 by Tony Fuentes DO) RLS (restless legs syndrome) CAD (coronary artery disease) TIA (transient ischemic attack) HLD (hyperlipidemia) HTN (hypertension) Parkinsons disease Anxiety Surgical History H/O right wrist surgery fall on 08/15/24 and fractured wrist History of hysterectomy 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 Family History Mother Stroke Father Cancer Lung Son Cancer Lymphoma Social History Smoking Status: Former smoker (quit in 2018) Tobacco Type: cigarettes Substance Use Type: None Meds Medications and Allergies Allergies Sulfa (Sulfonamide Antibiotics) Allergy (Verified 08/20/24 19:40) Difficulty Breathing sulfamethoxazole (From Bactrim) Allergy (Verified 08/20/24 19:40) Difficulty Breathing trimethoprim (From Bactrim) Allergy (Verified 08/20/24 19:40) Difficulty Breathing Home Medications alprazolam 1 mg tablet (Xanax) 1 mg PO QHS 08/20/24 [History Confirmed 08/20/24] ropinirole 0.25 mg tablet 0.25 mg PO TID 08/20/24 [History Confirmed 08/20/24] ascorbic acid (vitamin C) 1,000 mg capsule 1 g PO DAILY 08/21/24 [History Confirmed 08/21/24] aspirin 81 mg chewable tablet 81 mg PO DAILY 08/21/24 [History Confirmed 08/21/24] carbidopa 10 mg-levodopa 100 mg tablet (Sinemet) 1 tab PO TID 08/21/24 [History Confirmed 08/21/24] cholecalciferol (vitamin D3) 125 mcg (5,000 unit) capsule 125 mcg PO DAILY 08/21/24 [History Confirmed 08/21/24] gabapentin 300 mg capsule 300 mg PO TID 08/21/24 [History Confirmed 08/21/24] lisinopril 20 mg-hydrochlorothiazide 25 mg tablet 1 tab PO DAILY 08/21/24 [History Confirmed 08/21/24] lutein 25 mg-zeaxanthin 5 mg capsule 1 cap PO DAILY 08/21/24 [History Confirmed 08/21/24] multivitamin 1 tab PO DAILY 08/21/24 [History Confirmed 08/21/24] pantoprazole 40 mg tablet,delayed release 40 mg PO QAM 08/21/24 [History Confirmed 08/21/24] potassium chloride 20 mEq tablet,extended release(part/cryst) (Klor-Con M) 20 meq PO BID 08/21/24 [History Confirmed 08/21/24] pravastatin 20 mg tablet 20 mg PO DAILY 08/21/24 [History Confirmed 08/21/24] rasagiline 1 mg tablet 1 mg PO DAILY 08/21/24 [History Confirmed 08/21/24] zinc gluconate 50 mg tablet 50 mg PO DAILY 08/21/24 [History Confirmed 08/21/24] Exam Physical Exam Vital Signs: Temp Pulse Resp BP Pulse Ox O2 Del Method 99.5 F H 125 H 18 148/92 H 92 L Room Air 08/22/24 10:30 08/22/24 10:30 08/22/24 10:30 08/22/24 10:30 08/22/24 10:30 08/22/24 10:30 Results - Neuro Laboratory Findings 08/22/24 09:55 08/22/24 09:55 Diagnostic Findings Imaging/Impressions: ITS Impressions Chest X-Ray 08/20/24 20:54 IMPRESSION: No acute process. Impression dictated by: Andrew Henson M.D.08/20/2024 9:48 PM Dictation Location: [place] [address] Therapy Recommendations Therapy Recommendations: OT Recommendations OT Recommended Discharge Inpatient Rehab Unit Location PT Recommendations PT Recommended Discharge Inpatient Rehab Unit Location PT Recommended Services at Physical Therapy,Occupational Therapy,01/01 Discharge Supervision Assessment/Plan (1) Parkinsons disease: Qualifiers: Dyskinesia presence: without dyskinesia Fluctuating manifestations: without fluctuating manifestations Qualified Code(s): G20.A1 - Parkinson's disease without dyskinesia, without mention of fluctuations (2) Altered mental status: Qualifiers: Altered mental status type: delirium Qualified Code(s): R41.0 - Disorientation, unspecified Plan CONSULT REASON: Parkinson's with delirium HPI: 79-year-old woman who came to the emergency department on August 20, 2024. She had reportedly been being treated for UTI for the last 2 months. There were concerns with medication interactions. She was feeling a little confused. Confused for the past 4 5 days according to the daughter. She has been having some nausea and dry heaving and loose stools. Yesterday she was said to be sitting comfortably, without any significant symptoms, and no signs ofdelirium. Today she has been confused, delirious, and impulsive. And said to be combative towards staff. She has multiple family members in the room at the time of my encounter. They have been attending to her throughout the afternoon. She has been restless, fidgety, snappy, and agitated. They have beentrying to get her to sleep all day. The blinds are closed. They think she has been febrile. They are puttingdamp rags on her face which seems to have some alleviating effect for her. Her family members tell me they do not think she has slept in 3 days Home medications include alprazolam 1 mg nightly, ropinirole 0.25 mg 3 times daily, aspirin 81 mg daily, carbidopa?levodopa 10-100 mg 3 times daily, gabapentin 300 mg 3 times daily, rasagiline 1 mg daily, pravastatin 20 mg daily,among others. EXAMINATION: Blood pressure has been quite elevated, 189/74 last check. Intermittently tachycardic, 125 earlier today and then 104 last check. She is uncomfortable and in some distress. Restless in bed, kicking the sheets off, family members putting damp rags on her face. No significant limb edema. Work of breathing appears normal. Visualized skin shows age-related findings. She is alert. Attention is severely impaired. She is mumbling but most her speech is intelligible. Pupils appear equal. Hearing is okay. I do not detect significant facial weakness. Muscle bulk is moderately globally reduced. Muscle tone is mildly increased in all limbs. I cannot tell if she has resting tremors because she is constantly moving. She seems to have full strength in all extremities, not formally tested but she is pulling herself around the bed with all her limbs. Light touch is intact. None of her limbs appear to beataxic. 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 Currently she has acute hyperactive delirium. I think this is mostly related tosleep deprivation and the hospital setting her unfamiliar surroundings. She would be at risk for this given her neurodegenerative disorder. She has not been febrile. Her previous Pseudomonas urinary tract infection has presumably been treated. Do not suspect cefepime induced neurotoxicity because I think sheonly got a dose or two of it. Mild hypercalcemia is her only metabolic derangement. PLAN: 1. Her family members have been trying to get her to sleep all day, unsuccessfully. At this point in the day I instructed them to open the shades and let the sunlight on her and redirect her and try to keep her comfortable andthen closer to bedtime close the shades and minimize distractions. 2. Can continue her home parkinsonian medications: Carbidopa?levodopa 10-100 mg3 times daily, ropinirole 0.25 mg 3 times daily, rasagiline 1 mg daily 3. A sitter or family member who was able to calm her would be preferred to medications for the agitation. If necessary, can use small doses of benzodiazepine or neuroleptic medication. Any neuroleptic medication would be expected to worsen her underlying parkinsonism. Documented By: Tony Fuentes DO 08/22/24 1235 Signed By: 08/22/241814 [facility]03-14-2025 Progress note Author Mariajose Alfred [facility] Note Date/Time August 22, 2024 2:5 6pm [facility] ENTER [address] [place] [address] Hospitalist Progress Note Signed Patient: Judith Land MR#: [id number] : 1945 Acct:[id number] Age/Sex: 79 / F Adm Date: 5 Loc: Room: [address] [place] [address] Type: ADM IN Attending Dr: Mariajose Alfred MD Copies to: ~ Date of Service: 08/22/2024 Subjective Subjective Narrative: Patient was seen and examined at bedside. She was moved to [facility] for a private room. Patient was confused, delirious, and attempted to climb out of bed. Patient was combative towards staff. Patient was given IV Ativan for agitation. Exam Physical Exam Vital Signs: Temp Pulse Resp BP Pulse Ox O2 Del Method 99.5 F H 125 H 18 148/92 H 92 L Room Air 08/22/24 10:30 08/22/24 10:30 08/22/24 10:30 08/22/24 10:30 08/22/24 10:30 08/22/24 10:30 Const General: uncooperative and combative HEENT Head: normal to inspection, normocephalic and atraumatic Eyes Conjunctivae: conjunctivae normal Sclera: sclerae normal Resp Effort & Inspection: normal respiratory effort Auscultation: clear to auscultation bilaterally, no rales, no rhonchi and no wheezes Cardio Jugular venous pressure: no JVD Rate: regular rate Rhythm: regular rhythm Heart Sounds: no gallops, no murmurs and no rubs GI Inspection: normal to inspection Palpation: no guarding, no masses and nontender Auscultation: normal bowel sounds Neuro General: patient alert, moves all extremities and patient confused Cognition: abnormal cognition Objective Lab Results 08/22/24 09:55 08/22/24 09:55 Microbiology Results Microbiology 08/20/24 21:36 Urine - Clean-Voided Midstream Urine Culture - Preliminary Pseudomonas aeruginosa 08/21/24 00:57 Blood - Right Antecubital Blood Culture - Preliminary No Growth 1 Day 08/20/24 21:19 Blood - Left Antecubital Blood Culture - Preliminary No Growth 1 Day Meds Allergies and Active Meds Allergies Sulfa (Sulfonamide Antibiotics) Allergy (Verified 08/20/24 19:40) Difficulty Breathing sulfamethoxazole (From Bactrim) Allergy (Verified 08/20/24 19:40) Difficulty Breathing trimethoprim (From Bactrim) Allergy (Verified 08/20/24 19:40) Difficulty Breathing Active Meds: Active Medications Generic Name Dose Route Start Last Admin Trade Name Freq PRN Reason Stop Dose Admin Acetaminophen 1,000 mg 08/21/24 00:05 Acetaminophen 500 Mg Tablet PO 08/21/25 00:04 Q6HR PRN Pain Scale 1 - 3 or fever Alprazolam 1 mg 08/21/24 00:57 08/21/24 20:09 Alprazolam 0.5 Mg Tablet PO 02/17/25 00:56 1 mg QHS PRN Administration Sleep Aspirin 81 mg 08/21/24 09:00 08/21/24 08:31 Aspirin 81 Mg Tab.Chew PO 08/21/25 08:59 81 mg DAILY LLOYD Administration Carbidopa/Levodopa 1 tab 08/21/24 09:00 08/21/24 21:24 Carbidopa/Levodopa 10-100 Mg 1 Tab Tablet PO 08/21/25 08:59 1 tab TID LLOYD Administration Gabapentin 300 mg 08/21/24 09:00 08/21/24 21:24 Gabapentin 300 Mg Capsule PO 08/21/25 08:59 300 mg BID LLOYD Administration Heparin Sodium (Porcine) 5,000 unit 08/21/24 09:00 08/22/24 10:21 Heparin 5,000 Unit/Ml Vial SUBCUT 08/21/25 08:59 5,000 unit Q12HR LLOYD Administration Hydrochlorothiazide 25 mg 08/22/24 09:00 Hydrochlorothiazide 25 Mg Tablet PO 08/22/25 08:59 DAILY LLOYD Cefepime HCl 1 gm in 50 mls @ 100 mls/hr 08/21/24 23:00 08/21/24 23:53 Maxipime IV 100 mls/hr Q24H LLOYD Administration Lisinopril 20 mg 08/22/24 09:00 Lisinopril 20 Mg Tablet PO 08/22/25 08:59 DAILY LLOYD Ondansetron HCl 4 mg 08/21/24 00:05 Ondansetron 4 Mg/2 Ml Vial IV-PUSH 08/21/25 00:04 Q6H PRN Nausea And Vomiting Pantoprazole Sodium 40 mg 08/21/24 09:00 08/21/24 08:31 Pantoprazole 40 Mg Tablet.Dr PO 08/21/25 08:59 40 mg QAM LLOYD Administration Potassium Chloride 20 meq 08/22/24 09:00 Potassium Chloride Er 20 Meq Tab.Er.Prt PO 08/22/25 08:59 DAILY LLOYD Rasagiline 1 mg 08/21/24 09:00 08/21/24 08:31 Rasagiline 1 Mg Tablet PO 08/21/25 08:59 1 mg DAILY LLOYD Administration Ropinirole HCl 0.25 mg 08/21/24 22:00 08/21/24 21:24 Ropinirole 0.25 Mg Tablet PO 08/21/25 21:59 0.25 mg QHS LLOYD Administration Sodium Chloride 0 ml 08/20/24 19:40 Sodium Chloride 0.9 % 10 Ml Syringe IV-PUSH 08/20/25 19:39 PRN PRN Flush Sodium Chloride 0 ml 08/21/24 06:00 08/22/24 07:38 Sodium Chloride 0.9 % 10 Ml Syringe IV-PUSH 08/21/25 05:59 10 ml QSHIFT LLOYD Administration A&P - Hospitalist Assessment/Plan (1) ANTONIO (acute kidney injury): (2) Metabolic encephalopathy: (3) UTI (urinary tract infection): (4) Hypercalcemia: Plan 1. Metabolic encephalopathy 2. Acute kidney injury Plan Metabolic encephalopathy-Patient is currently delirious and confused. * Monitor urine and blood culture * Give IV Ativan for agitation * Meropenem 1 gm in 100 mls Acute kidney injury-Calcium has increased from 10.6 to 11.1 mg/dL. * Continue sodium chloride 0.9% saline * Continue to monitor CBC, BMP, calcium, magnesium Chronic conditions HTN?Continue to hold lisinopril and hydrochlorothiazide due to ANTONIO Parkinson's disease?Continue carbidopa, levodopa, and rasagiline Anxiety?Continue alprazolam RLS?Continue ropinirole HLD?Continue use of pravastatin Chronic pain?hold gabapentin DVT Prophylaxis?Coninue on heparin Diet order?regular diet Attending Physician Attestation: I personally reviewed the history, performed the moss elements of the exam, formulated the plan of care and confirmed the written note. I agree with the findings and plan as documented in this note and have edited it if needed to reflect my findings and plan. Overnight, patient became agitated and combative, kicking medical staff and being aggressive, called family members to come and get her, apparently she was confused, delirious and hallucinating. Given Ativan IV for sedation, placed on 1:1 for safety. Patient was evaluated at bedside, she is definitely altered fromwhen I saw her yesterday AAOx3. having a nice conversation, she did tell me about her new dinning table she ordered. Today she is completed disoriented and combative. I did have discussion with family members at bedside at length. spoke with granddaughter Jaimee as well at bedside and she told me about patient's confusion even at home, stated she has good days and bad days , it can get scary sometimes when she becomes confused and hallucinating . Family kept concerning about UTI causing her confusion as she tried multiple AB as outpatient. Patient was doing well after got IV Cefepime on admission, she was completely fine, but this relapse cannot be explained by UTI as she did get better. Neurology was consulted for input regarding medications. Concern for Cefepime toxicity? I am wondering if this is an issue was also at home as per family pt was having good days and bad days or this is new issue rising from medications, we are trying to figure this out but excluding possibilities and treating conditions. Neurology input appreciated regarding meds. I switched her to Meropenem and stopped Cefepime. Placed on IV fluids. Given a dose of Calcitonin due to hypercalcemia which is unclear in etiology. Continue management as mentioned and Watchful monitoring at this time. Discussed with family members at bedside, all questions answered. Mariajose Ortega MD Documented By: Mariajose Alfred MD 08/22/24 11 36 Signed By: <Electronically signed by Mariajose Alfred MD> 08/22/24 1456 [facility] Work Phone: [phone]) [phone] [place] [address] Hospitalist Progress Note Signed Patient: Judith Land MR#: [id number] : 1945 Acct:[id number] Age/Sex: 79 / F Adm Date: 5 Loc: Room: [address] [place] [address] Type: ADM IN Attending Dr: Mariajose Alfred MD Copies to: ~ Date of Service: 08/22/2024 Subjective Subjective Narrative: Patient was seen and examined at bedside. She was moved to room [facility] for a private room. Patient was confused, delirious, and attempted to climb out of bed. Patient was combative towards staff. Patient was given IV Ativan for agitation. Exam Physical Exam Vital Signs: Temp Pulse Resp BP Pulse Ox O2 Del Method 99.5 F H 125 H 18 148/92 H 92 L Room Air 08/22/24 10:30 08/22/24 10:30 08/22/24 10:30 08/22/24 10:30 08/22/24 10:30 08/22/24 10:30 Const General: uncooperative and combative HEENT Head: normal to inspection, normocephalic and atraumatic Eyes Conjunctivae: conjunctivae normal Sclera: sclerae normal Resp Effort & Inspection: normal respiratory effort Auscultation: clear to auscultation bilaterally, no rales, no rhonchi and no wheezes Cardio Jugular venous pressure: no JVD Rate: regular rate Rhythm: regular rhythm Heart Sounds: no gallops, no murmurs and no rubs GI Inspection: normal to inspection Palpation: no guarding, no masses and nontender Auscultation: normal bowel sounds Neuro General: patient alert, moves all extremities and patient confused Cognition: abnormal cognition Objective Lab Results 08/22/24 09:55 08/22/24 09:55 Microbiology Results Microbiology 08/20/24 21:36 Urine - Clean-Voided Midstream Urine Culture - Preliminary Pseudomonas aeruginosa 08/21/24 00:57 Blood - Right Antecubital Blood Culture - Preliminary No Growth 1 Day 08/20/24 21:19 Blood - Left Antecubital Blood Culture - Preliminary No Growth 1 Day Meds Allergies and Active Meds Allergies Sulfa (Sulfonamide Antibiotics) Allergy (Verified 08/20/24 19:40) Difficulty Breathing sulfamethoxazole (From Bactrim) Allergy (Verified 08/20/24 19:40) Difficulty Breathing trimethoprim (From Bactrim) Allergy (Verified 08/20/24 19:40) Difficulty Breathing Active Meds: Active Medications Generic Name Dose Route Start Last Admin Trade Name Freq PRN Reason Stop Dose Admin Acetaminophen 1,000 mg 08/21/24 00:05 Acetaminophen 500 Mg Tablet PO 08/21/25 00:04 Q6HR PRN Pain Scale 1 - 3 or fever Alprazolam 1 mg 08/21/24 00:57 08/21/24 20:09 Alprazolam 0.5 Mg Tablet PO 02/17/25 00:56 1 mg QHS PRN Administration Sleep Aspirin 81 mg 08/21/24 09:00 08/21/24 08:31 Aspirin 81 Mg Tab.Chew PO 08/21/25 08:59 81 mg DAILY LLOYD Administration Carbidopa/Levodopa 1 tab 08/21/24 09:00 08/21/24 21:24 Carbidopa/Levodopa 10-100 Mg 1 Tab Tablet PO 08/21/25 08:59 1 tab TID LLOYD Administration Gabapentin 300 mg 08/21/24 09:00 08/21/24 21:24 Gabapentin 300 Mg Capsule PO 08/21/25 08:59 300 mg BID LLOYD Administration Heparin Sodium (Porcine) 5,000 unit 08/21/24 09:00 08/22/24 10:21 Heparin 5,000 Unit/Ml Vial SUBCUT 08/21/25 08:59 5,000 unit Q12HR LLOYD Administration Hydrochlorothiazide 25 mg 08/22/24 09:00 Hydrochlorothiazide 25 Mg Tablet PO 08/22/25 08:59 DAILY LLOYD Cefepime HCl 1 gm in 50 mls @ 100 mls/hr 08/21/24 23:00 08/21/24 23:53 Maxipime IV 100 mls/hr Q24H LLOYD Administration Lisinopril 20 mg 08/22/24 09:00 Lisinopril 20 Mg Tablet PO 08/22/25 08:59 DAILY LLOYD Ondansetron HCl 4 mg 08/21/24 00:05 Ondansetron 4 Mg/2 Ml Vial IV-PUSH 08/21/25 00:04 Q6H PRN Nausea And Vomiting Pantoprazole Sodium 40 mg 08/21/24 09:00 08/21/24 08:31 Pantoprazole 40 Mg Tablet.Dr PO 08/21/25 08:59 40 mg QAM LLOYD Administration Potassium Chloride 20 meq 08/22/24 09:00 Potassium Chloride Er 20 Meq Tab.Er.Prt PO 08/22/25 08:59 DAILY LLOYD Rasagiline 1 mg 08/21/24 09:00 08/21/24 08:31 Rasagiline 1 Mg Tablet PO 08/21/25 08:59 1 mg DAILY LLOYD Administration Ropinirole HCl 0.25 mg 08/21/24 22:00 08/21/24 21:24 Ropinirole 0.25 Mg Tablet PO 08/21/25 21:59 0.25 mg QHS LLOYD Administration Sodium Chloride 0 ml 08/20/24 19:40 Sodium Chloride 0.9 % 10 Ml Syringe IV-PUSH 08/20/25 19:39 PRN PRN Flush Sodium Chloride 0 ml 08/21/24 06:00 08/22/24 07:38 Sodium Chloride 0.9 % 10 Ml Syringe IV-PUSH 08/21/25 05:59 10 ml QSHIFT LLOYD Administration A&P - Hospitalist Assessment/Plan (1) ANTONIO (acute kidney injury): (2) Metabolic encephalopathy: (3) UTI (urinary tract infection): (4) Hypercalcemia: Plan 1. Metabolic encephalopathy 2. Acute kidney injury Plan Metabolic encephalopathy-Patient is currently delirious and confused. * Monitor urine and blood culture * Give IV Ativan for agitation * Meropenem 1 gm in 100 mls Acute kidney injury-Calcium has increased from 10.6 to 11.1 mg/dL. * Continue sodium chloride 0.9% saline * Continue to monitor CBC, BMP, calcium, magnesium Chronic conditions HTN?Continue to hold lisinopril and hydrochlorothiazide due to ANTONIO Parkinson's disease?Continue carbidopa, levodopa, and rasagiline Anxiety?Continue alprazolam RLS?Continue ropinirole HLD?Continue use of pravastatin Chronic pain?hold gabapentin DVT Prophylaxis?Coninue on heparin Diet order?regular diet Attending Physician Attestation: I personally reviewed the history, performed the moss elements of the exam, formulated the plan of care and confirmed the written note. I agree with the findings and plan as documented in this note and have edited it if needed to reflect my findings and plan. Overnight, patient became agitated and combative, kicking medical staff and being aggressive, called family members to come and get her, apparently she was confused, delirious and hallucinating. Given Ativan IV for sedation, placed on 1:1 for safety. Patient was evaluated at bedside, she is definitely altered fromwhen I saw her yesterday AAOx3. having a nice conversation, she did tell me about her new dinning table she ordered. Today she is completed disoriented and combative. I did have discussion with family members at bedside at length. spoke with granddaughter Jaimee mandujano at bedside and she told me about patient's confusion even at home, stated she has good days and bad days , it can get scary sometimes when she becomes confused and hallucinating . Family kept concerning about UTI causing her confusion as she tried multiple AB as outpatient. Patient was doing well after got IV Cefepime on admission, she was completely fine, but this relapse cannot be explained by UTI as she did get better. Neurology was consulted for input regarding medications. Concernfor Cefepime toxicity? I am wondering if this is an issue was also at home as per family pt was having good days and bad days or this is new issue rising from medications, we are trying to figure this out but excluding possibilities and treating conditions. Neurology input appreciated regarding meds. I switched her to Meropenem and stopped Cefepime. Placed on IV fluids. Given a dose of Calcitonindue to hypercalcemia which is unclear in etiology. Continue management as mentioned and Watchful monitoring at this time. Discussed with family members at bedside, all questions answered. Obaydah Bernard Jordan, MD Documented By: Mariajose Alfred MD 08/22/24 11 36 Signed By: 08/22/24 1456 [facility]03-13-2025 Progress note Author Mariajose Alfred [facility] Note Date/Time August 21, 2024 4:0 8pm [facility] [address] [place] [address] Hospitalist Progress Note Signed Patient: Judith Land MR#: [id number] : 1945 Acct:[id number] Age/Sex: 79 / F Adm Date: 5 Loc: 3T Room: [address] [place] [address] Type: ADM IN Attending Dr: Mariajose Alfred MD Copies to: ~ Date of Service: 08/21/2024 Subjective Subjective Narrative: Patient was seen sitting comfortably today. Patient's two granddaughters were present as well. Patient has been able to eat well. Patient has had a bowel movement yesterday. She denies fever, chills, night sweats, and vomiting. She denies urinary urgency and pain with urination. Patient shows no signs of delirium. Exam Physical Exam Vital Signs: Temp Pulse Resp BP Pulse Ox O2 Del Method 98.7 F 88 20 181/79 H 94 L Room Air 08/21/24 08:27 08/21/24 08:27 08/21/24 08:27 08/21/24 08:27 08/21/24 08:27 08/21/24 08:27 Const General: cooperative, no acute distress and does not appear intoxicated HEENT Head: normal to inspection, normocephalic and atraumatic Neck Neck: normal visual inspection, no lymphadenopathy and no anterior neck swelling Resp Effort & Inspection: normal respiratory effort and no cough Auscultation: no rales, no rhonchi and no wheezes Cardio Jugular venous pressure: no JVD Rate: regular rate Rhythm: regular rhythm Heart Sounds: no gallops, no murmurs and no rubs GI Inspection: normal to inspection Palpation: no guarding and nontender Auscultation: normal bowel sounds General: bimanual renal exam normal bilaterally Skin General: no rashes or lesions noted, no erythema and no jaundice Neuro General: patient alert, patient awake and patient oriented x3 Objective Lab Results 08/21/24 06:21 08/21/24 06:21 Microbiology Results Microbiology 08/20/24 21:36 Urine - Clean-Voided Midstream Urine Culture - Preliminary No Growth 1 Day Meds Allergies and Active Meds Allergies Sulfa (Sulfonamide Antibiotics) Allergy (Verified 08/20/24 19:40) Difficulty Breathing sulfamethoxazole (From Bactrim) Allergy (Verified 08/20/24 19:40) Difficulty Breathing trimethoprim (From Bactrim) Allergy (Verified 08/20/24 19:40) Difficulty Breathing Active Meds: Active Medications Generic Name Dose Route Start Last Admin Trade Name Freq PRN Reason Stop Dose Admin Acetaminophen 1,000 mg 08/21/24 00:05 Acetaminophen 500 Mg Tablet PO 08/21/25 00:04 Q6HR PRN Pain Scale 1 - 3 or fever Alprazolam 1 mg 08/21/24 00:57 08/21/24 01:34 Alprazolam 0.5 Mg Tablet PO 02/17/25 00:56 1 mg QHS PRN Administration Sleep Aspirin 81 mg 08/21/24 09:00 08/21/24 08:31 Aspirin 81 Mg Tab.Chew PO 08/21/25 08:59 81 mg DAILY LLOYD Administration Carbidopa/Levodopa 1 tab 08/21/24 09:00 08/21/24 08:31 Carbidopa/Levodopa 10-100 Mg 1 Tab Tablet PO 08/21/25 08:59 1 tab TID LLOYD Administration Gabapentin 300 mg 08/21/24 09:00 08/21/24 08:31 Gabapentin 300 Mg Capsule PO 08/21/25 08:59 300 mg BID LLOYD Administration Heparin Sodium (Porcine) 5,000 unit 08/21/24 09:00 08/21/24 08:31 Heparin 5,000 Unit/Ml Vial SUBCUT 08/21/25 08:59 5,000 unit Q12HR LLOYD Administration Sodium Chloride 1,000 mls @ 75 mls/hr 08/21/24 01:00 08/21/24 01:38 0.9% Sodium Chloride 1,000 Ml IV 08/21/24 14:19 75 mls/hr .[id number] LLOYD Administration Cefepime HCl 1 gm in 50 mls @ 100 mls/hr 08/21/24 23:00 Maxipime IV Q24H LLOYD Ondansetron HCl 4 mg 08/21/24 00:05 Ondansetron 4 Mg/2 Ml Vial IV-PUSH 08/21/25 00:04 Q6H PRN Nausea And Vomiting Pantoprazole Sodium 40 mg 08/21/24 09:00 08/21/24 08:31 Pantoprazole 40 Mg Tablet. PO 08/21/25 08:59 40 mg QAM LLOYD Administration Pravastatin Sodium 20 mg 08/21/24 09:00 Pravastatin 20 Mg Tablet PO 08/21/25 08:59 DAILY LLOYD Rasagiline 1 mg 08/21/24 09:00 08/21/24 08:31 Rasagiline 1 Mg Tablet PO 08/21/25 08:59 1 mg DAILY LLOYD Administration Ropinirole HCl 0.25 mg 08/21/24 00:50 Ropinirole 0.25 Mg Tablet PO 08/21/25 00:49 TID LLOYD Sodium Chloride 0 ml 08/20/24 19:40 Sodium Chloride 0.9 % 10 Ml Syringe IV-PUSH 08/20/25 19:39 PRN PRN Flush Sodium Chloride 0 ml 08/21/24 06:00 08/21/24 06:24 Sodium Chloride 0.9 % 10 Ml Syringe IV-PUSH 08/21/25 05:59 Not Given QSHIFT [facility] A&P - Hospitalist Assessment/Plan (1) ANTONIO (acute kidney injury): (2) Metabolic encephalopathy: (3) UTI (urinary tract infection): Plan Assessment/Plan 1. Acute kidney injury 2. Urinary tract infection Plan Acute kidney injury-Patient's creatinine has decreased from 1.43 to 1.15 mg/dL. Magnesium is currently 1.7 L. Calcium has decreased from 11.5 to 10.6 mg/dL. * Continue sodium chloride 0.9% saline * Continue to monitor CBC, BMP, calcium, magnesium * Renal ultrasound for ANTONIO Urinary tract infection-Urine appears cloudy with a light yellow appearance. Patient has trace amounts of protein and ketones. Leukocyte esterase is 4+, urine RBC is 5-9 HPF, urine WBC is 50-100 HPF, there are few urine WBC clumps, and urine squamous epithelial cells are 3-4 HPF. * Continue cefepime 1 gm in 50 ml * Continue to monitor urine and blood culture Chronic conditions HTN?Continue to hold lisinopril and hydrochlorothiazide due to ANTONIO Parkinson's disease?Continue carbidopa, levodopa, and rasagiline Anxiety?Continue alprazolam RLS?Continue ropinirole HLD?Continue use of pravastatin Chronic pain?Continue use of gabapentin DVT Prophylaxis?Coninue on heparin Diet order?regular diet Attending Physician Attestation: I personally reviewed the history, performed the moss elements of the exam, formulated the plan of care and confirmed the written note. I agree with the findings and plan as documented in this note and have edited it if needed to reflect my findings and plan. Acute metabolic encephalopathy secondary to UTI likely due to pseudomonas infection Concern for AB resistance, failed outpatient AB Continue IV AB for now for at least 48 hours Mentation improved today, back to baseline. PT/OT Mariajose Ortega MD Documented By: Mariajose Alfred MD 08/21/24 11 18 Signed By: <Electronically signed by Mariajose Alfred MD> 08/21/24 [facility] Work Phone: 1(226) 520-693403-13-2025 [place] [address] Hospitalist Progress Note Signed Patient: Judith Land MR#: [id number] : 1945 Acct:[id number] Age/Sex: 79 / F Adm Date: 5 Loc: 3T Room: [address] [place] [address] Type: ADM IN Attending Dr: Mariajose Alfred MD Copies to: ~ Date of Service: 08/21/2024 Subjective Subjective Narrative: Patient was seen sitting comfortably today. Patient's two granddaughters were present as well. Patient has been able to eat well. Patient has had a bowel movement yesterday. She denies fever, chills,night sweats, and vomiting. She denies urinary urgency and pain with urination. Patient shows no signs of delirium. Exam Physical Exam Vital Signs: Temp Pulse Resp BP Pulse Ox O2 Del Method 98.7 F 88 20 181/79 H 94 L Room Air 08/21/24 08:27 08/21/24 08:27 08/21/24 08:27 08/21/24 08:27 08/21/24 08:27 08/21/24 08:27 Const General: cooperative, no acute distress and does not appear intoxicated HEENT Head: normal to inspection, normocephalic and atraumatic Neck Neck: normal visual inspection, no lymphadenopathy and no anterior neck swelling Resp Effort & Inspection: normal respiratory effort and no cough Auscultation: no rales, no rhonchi and no wheezes Cardio Jugular venous pressure: no JVD Rate: regular rate Rhythm: regular rhythm Heart Sounds: no gallops, no murmurs and no rubs GI Inspection: normal to inspection Palpation: no guarding and nontender Auscultation: normal bowel sounds General: bimanual renal exam normal bilaterally Skin General: no rashes or lesions noted, no erythema and no jaundice Neuro General: patient alert, patient awake and patient oriented x3 Objective Lab Results 08/21/24 06:21 08/21/24 06:21 Microbiology Results Microbiology 08/20/24 21:36 Urine - Clean-Voided Midstream Urine Culture - Preliminary No Growth 1 Day Meds Allergies and Active Meds Allergies Sulfa (Sulfonamide Antibiotics) Allergy (Verified 08/20/24 19:40) Difficulty Breathing sulfamethoxazole (From Bactrim) Allergy (Verified 08/20/24 19:40) Difficulty Breathing trimethoprim (From Bactrim) Allergy (Verified 08/20/24 19:40) Difficulty Breathing Active Meds: Active Medications Generic Name Dose Route Start Last Admin Trade Name Freq PRN Reason Stop Dose Admin Acetaminophen 1,000 mg 08/21/24 00:05 Acetaminophen 500 Mg Tablet PO 08/21/25 00:04 Q6HR PRN Pain Scale 1 - 3 or fever Alprazolam 1 mg 08/21/24 00:57 08/21/24 01:34 Alprazolam 0.5 Mg Tablet PO 02/17/25 00:56 1 mg QHS PRN Administration Sleep Aspirin 81 mg 08/21/24 09:00 08/21/24 08:31 Aspirin 81 Mg Tab.Chew PO 08/21/25 08:59 81 mg DAILY LLOYD Administration Carbidopa/Levodopa 1 tab 08/21/24 09:00 08/21/24 08:31 Carbidopa/Levodopa 10-100 Mg 1 Tab Tablet PO 08/21/25 08:59 1 tab TID LLOYD Administration Gabapentin 300 mg 08/21/24 09:00 08/21/24 08:31 Gabapentin 300 Mg Capsule PO 08/21/25 08:59 300 mg BID LLOYD Administration Heparin Sodium (Porcine) 5,000 unit 08/21/24 09:00 08/21/24 08:31 Heparin 5,000 Unit/Ml Vial SUBCUT 08/21/25 08:59 5,000 unit Q12HR LLOYD Administration Sodium Chloride 1,000 mls @ 75 mls/hr 08/21/24 01:00 08/21/24 01:38 0.9% Sodium Chloride 1,000 Ml IV 08/21/24 14:19 75 mls/hr .[id number] LLOYD Administration Cefepime HCl 1 gm in 50 mls @ 100 mls/hr 08/21/24 23:00 Maxipime IV Q24H LLOYD Ondansetron HCl 4 mg 08/21/24 00:05 Ondansetron 4 Mg/2 Ml Vial IV-PUSH 08/21/25 00:04 Q6H PRN Nausea And Vomiting Pantoprazole Sodium 40 mg 08/21/24 09:00 08/21/24 08:31 Pantoprazole 40 Mg Tablet.Dr PO 08/21/25 08:59 40 mg QAM LLOYD Administration Pravastatin Sodium 20 mg 08/21/24 09:00 Pravastatin 20 Mg Tablet PO 08/21/25 08:59 DAILY LLOYD Rasagiline 1 mg 08/21/24 09:00 08/21/24 08:31 Rasagiline 1 Mg Tablet PO 08/21/25 08:59 1 mg DAILY LLOYD Administration Ropinirole HCl 0.25 mg 08/21/24 00:50 Ropinirole 0.25 Mg Tablet PO 08/21/25 00:49 TID LLOYD Sodium Chloride 0 ml 08/20/24 19:40 Sodium Chloride 0.9 % 10 Ml Syringe IV-PUSH 08/20/25 19:39 PRN PRN Flush Sodium Chloride 0 ml 08/21/24 06:00 08/21/24 06:24 Sodium Chloride 0.9 % 10 Ml Syringe IV-PUSH 08/21/25 05:59 Not Given QSHIFT [facility] A&P - Hospitalist Assessment/Plan (1) ANTONIO (acute kidney injury): (2) Metabolic encephalopathy: (3) UTI (urinary tract infection): Plan Assessment/Plan 1. Acute kidney injury 2. Urinary tract infection Plan Acute kidney injury-Patient's creatinine has decreased from 1.43 to 1.15 mg/dL. Magnesium is currently 1.7 L. Calcium has decreased from 11.5 to 10.6 mg/dL. * Continue sodium chloride 0.9% saline * Continue to monitor CBC, BMP, calcium, magnesium * Renal ultrasound for ANTONIO Urinary tract infection-Urine appears cloudy with a light yellow appearance. Patient has trace amounts of protein and ketones. Leukocyte esterase is 4+, urine RBC is 5-9 HPF, urine WBC is 50-100 HPF,there are few urine WBC clumps, and urine squamous epithelial cells are 3-4 HPF. * Continue cefepime 1 gm in 50 ml * Continue to monitor urine and blood culture Chronic conditions HTN?Continue to hold lisinopril and hydrochlorothiazide due to ANTONIO Parkinson's disease?Continue carbidopa, levodopa, and rasagiline Anxiety?Continue alprazolam RLS?Continue ropinirole HLD?Continue use of pravastatin Chronic pain?Continue use of gabapentin DVT Prophylaxis?Coninue on heparin Diet order?regular diet Attending Physician Attestation: I personally reviewed the history, performed the moss elements of the exam, formulated the plan of care and confirmed the written note. I agree with the findings and plan as documented in this note and have edited it if needed to reflect my findings and plan. Acute metabolic encephalopathy secondary to UTI likely due to pseudomonas infection Concern for AB resistance, failed outpatient AB Continue IV AB for now for at least 48 hours Mentation improved today, back to baseline. PT/OT Mariajose Ortega MD Documented By: Mariajose Alfred MD 08/21/24 18 Signed By: 08/21/24 1608 [facility]03-13-2025 History and physical note Author Ebony Scott [facility] Note Date/Time August 21, 2024 6:1 1am [facility] [address] [place] [address] Hospitalist H&P Signed Patient: Judith Land MR#: [id number] : 1945 Acct:[id number] Age/Sex: 79 / F Adm Date: 5 Loc: Room: [address] [place] [address] Type: ADM IN Attending Dr: Lauro Garvey MD Copies to: MD Kavon Potter MD Paula G Smith, APRN~ HPI DATE OF EXAMINATION: 08/20/24 CHIEF COMPLAINT: UTI HISTORY OF PRESENT ILLNESS: Ms. Land is a 79-year-old female with a PMH of Parkinson disease, HTN, HLD, CAD, anxiety, RLS, chronic pain that presented to the emergency room [facility]. She has been on 3 antibiotics, Cipro, cephalexin and cefdinir as outpatient for this UTI. She completed the Cipro and cephalexin, was not able to complete cefdinir due to nausea. She states that she has been dealing with this UTI for about a month now. Daughter states that she has noticed some confusion in the last 4 to 5 days. Patient denies any fever, chills, chest pain, shortness of breath. States she was nauseous, had been dry heaving and having loose stools. She denies any pain or burning with urination, denies foulodor. Assisted to the bedside commode with the daughter's assistance, patient is weak, shaky. She does void a small amount of yellow urine. Assisted back tothe cart +2 again. Patient states that she quit smoking in 2018, denies alcoholor illicit drug use. Urine sample with cloudy, yellow urine with a trace of protein, trace ketones, 4+ leukocytes, 50-100 WBCs, rare amount of bacteria, culture is pending. BMP with sodium 135, creatinine 1.43, calcium 11.5, ALP 122. CBC is unremarkable. There is a urine culture from 08/13/2024 was positive for Pseudomonas aeruginosa. Blood cultures [facility] and these are pending. She received 1 g of cefepime and 1 L saline bolus. She will be admitted as inpatient to the [facility] telemetry floor. Review of Systems Review of Systems Review of systems: A 10 point review of systems was obtained, negative unless noted in the HPI or below. 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 Family History (Updated 08/21/24 @ 00:37 by Ebony Scott APRN) Mother Stroke Father Cancer Lung Son Cancer Lymphoma Social History Household Members: children Smoking Status: Former smoker (quit in 2018) Tobacco Type: cigarettes Substance Use Type: None Meds Medications and Allergies Allergies Sulfa (Sulfonamide Antibiotics) Allergy (Verified 08/20/24 19:40) Difficulty Breathing sulfamethoxazole (From Bactrim) Allergy (Verified 08/20/24 19:40) Difficulty Breathing trimethoprim (From Bactrim) Allergy (Verified 08/20/24 19:40) Difficulty Breathing Home Medications alprazolam 1 mg tablet (Xanax) 1 mg PO QHS 08/20/24 [History Confirmed 08/20/24] ropinirole 0.25 mg tablet 0.25 mg PO TID 08/20/24 [History Confirmed 08/20/24] ascorbic acid (vitamin C) 1,000 mg capsule 1 g PO DAILY 08/21/24 [History Confirmed 08/21/24] aspirin 81 mg chewable tablet 81 mg PO DAILY 08/21/24 [History Confirmed 08/21/24] carbidopa 10 mg-levodopa 100 mg tablet (Sinemet) 1 tab PO TID 08/21/24 [History Confirmed 08/21/24] cholecalciferol (vitamin D3) 125 mcg (5,000 unit) capsule 125 mcg PO DAILY 08/21/24 [History Confirmed 08/21/24] gabapentin 300 mg capsule 300 mg PO TID 08/21/24 [History Confirmed 08/21/24] lisinopril 20 mg-hydrochlorothiazide 25 mg tablet 1 tab PO DAILY 08/21/24 [History Confirmed 08/21/24] lutein 25 mg-zeaxanthin 5 mg capsule 1 cap PO DAILY 08/21/24 [History Confirmed 08/21/24] multivitamin 1 tab PO DAILY 08/21/24 [History Confirmed 08/21/24] pantoprazole 40 mg tablet,delayed release 40 mg PO QAM 08/21/24 [History Confirmed 08/21/24] potassium chloride 20 mEq tablet,extended release(part/cryst) (Klor-Con M) 20 meq PO BID 08/21/24 [History Confirmed 08/21/24] pravastatin 20 mg tablet 20 mg PO DAILY 08/21/24 [History Confirmed 08/21/24] rasagiline 1 mg tablet 1 mg PO DAILY 08/21/24 [History Confirmed 08/21/24] zinc gluconate 50 mg tablet 50 mg PO DAILY 08/21/24 [History Confirmed 08/21/24] Exam Physical Exam Vital Signs: Temp Pulse Resp BP Pulse Ox O2 Del Method 97.5 F L 70 18 163/78 H 94 L Room Air 08/20/24 19:33 08/20/24 21:23 08/20/24 21:23 08/20/24 21:23 08/20/24 21:23 08/20/24 21:23 Narrative: CONST- Appears well -developed, frail, cachectic, bitemporal wasting HEAD - Normocephalic and atraumatic EENT-Sclera nonicteric, conjunctive are non-erythemic, dry oral mucosa, pharynx clear NECK-Supple, no cervical lymphadenopathy CARDIAC-normal rate, regular rhythm, S1 & S2. PULM-diminished without wheeze or rhonchi, RA, no accessory muscle use or cough noted ABD - Soft. Bowel sounds are normal. No distention. No tenderness EXTREM-no edema BLE calves, nontender SKIN- W/D good turgor MS- MAEX4 spontaneously with equal with equal strength?generalized weakness, right forearm in splint from recent fall and fracture NEURO- A&Ox3 speech clear and tongue midline, equal facial symmetry, no focal motor deficits PSYCH-Mood, affect, and behavior appropriate, slightly anxious Results - Hospitalist H&P Lab Results Labs: Laboratory Last Values Corrected WBC 7.9 X10E3/uL (3.8-11.6) 08/20/24 21:19 Uncorrected WBC Count 7.9 x10E3/uL (3.8-11.6) 08/20/24 21:19 RBC 4.16 x10E6/uL (3.60-5.00) 08/20/24 21:19 Hgb 13.1 g/dL (11.8-15.4) 08/20/24 21:19 Hct 38.4 % (34.0-46.4) 08/20/24 21:19 MCV 92.2 fl (80-100) 08/20/24 21:19 MCH 31.4 pg (24.7-34.3) 08/20/24 21:19 MCHC 34.1 g/dL (32.0-35.0) 08/20/24 21:19 RDW 14.6 % (11.9-15.3) 08/20/24 21:19 Plt Count 314 x10E3/uL (150-450) 08/20/24 21:19 MPV 9.4 fl (6.3-10.7) 08/20/24 21:19 Neut % (Auto) 48.3 % (.) 08/20/24 21:19 Lymph % (Auto) 34.8 % (.) 08/20/24 21:19 [place] % (Auto) 13.1 % (.) 08/20/24 21:19 Eos % (Auto) 2.1 % (.) 08/20/24 21:19 Baso % (Auto) 1.7 % (.) 08/20/24 21:19 Nucleat RBC Rel Count 0.2 /100 WBC (0-0.5) 08/20/24 21:19 Neut # (Auto) 3.8 x10E3/uL (1.8-7.7) 08/20/24 21:19 Lymph # (Auto) 2.7 x10E3/uL (1.00-4.8) 08/20/24 21:19 [place] # (Auto) 1.0 x10E3/uL (0.0-0.8) H 08/20/24 21:19 Eos # (Auto) 0.2 x10E3/uL (0.0-0.45) 08/20/24 21:19 Baso # (Auto) 0.1 x10E3/uL (0.0-0.2) 08/20/24 21:19 Monocyte Dist Width 15.03 % (0.00-20.00) 08/20/24 21:19 Platelet Estimate Normal (Normal) 08/20/24 21: Large Platelets Slight 08/20/24 21:19 Plt Morphology Comment N/A 08/20/24 21:19 RBC Morphology N/A 08/20/24 21:19 PHA Creatinine Clear 25.07 08/20/24 21:19 Sodium 135 mmol/L (136-145) L 08/20/24 21:19 Potassium 4.1 mmol/L (3.5-5.1) 08/20/24 21:19 Chloride 103 mmol/L (98-107) 08/20/24 21:19 Carbon Dioxide 24.2 mmol/L (21.0-31.0) 08/20/24 21:19 Anion Gap 11.9 mEq/L (6.0-15.0) 08/20/24 21:19 BUN 26 mg/dL (7-25) H 08/20/24 21:19 Creatinine 1.43 mg/dL (0.60-1.20) H 08/20/24 21:19 Est GFR (CKD-EPI) 37.541 mL/Min 08/20/24 21:19 Glucose 90 mg/dL (70-100) 08/20/24 21:19 Lactic Acid 0.9 mmol/L (0.5-1.9) 08/20/24 21:19 Calcium 11.5 mg/dL (8.6-10.3) H 08/20/24 21:19 Total Bilirubin 0.5 mg/dl (0.3-1.0) 08/20/24 21:19 AST 14 U/L (13-39) 08/20/24 21:19 ALT < 3 U/L (7-52) L 08/20/24 21:19 Alkaline Phosphatase 122 U/L (34-104) H 08/20/24 21:19 Total Protein 6.8 gm/dL (6.4-8.9) 08/20/24 21:19 Albumin 4.4 gm/dL (3.5-5.7) 08/20/24 21:19 Globulin 2.4 gm/dL 08/20/24 21: Albumin/Globulin Ratio 1.8 08/20/24 21:19 Urine Color Light-yellow (Yellow) 08/20/24 21:36 Urine Appearance Cloudy (Clear) A 08/20/24 21:36 Urine pH 6.0 (5.0-9.0) 08/20/24 21:36 Ur Specific [place] 1.014 (1.001-1.030) 08/20/24 21:36 Urine Protein Trace mg/dL (Negative) H 08/20/24 21:36 Urine Glucose (UA) Normal mg/dL (Normal) 08/20/24 21:36 Urine Ketones Trace (Negative) H 08/20/24 21:36 Urine Occult Blood Negative (Negative) 08/20/24 21:36 Urine Nitrite Negative (Negative) 08/20/24 21:36 Urine Bilirubin Negative (Negative) 08/20/24 21:36 Urine Urobilinogen Normal mg/dL (Normal) 08/20/24 21:36 Ur Leukocyte Esterase 4+ (Negative) H 08/20/24 21:36 Urine RBC 5-9 /HPF (0-4) H 08/20/24 21:36 Urine WBC 50-100 /HPF (0-4) H 08/20/24 21:36 Urine WBC Clumps Few /LPF (None Seen) H 08/20/24 21:36 Ur Squamous Epith Cells 3-4 /HPF (0-2) H 08/20/24 21:36 Calcium Oxalate Crystal 2+ /HPF 08/20/24 21:36 Urine Bacteria Rare /HPF (None Seen) 08/20/24 21:36 Hyaline Casts 0-8 /LPF (0-8) 08/20/24 21:36 Urine Mucus Rare /LPF 08/20/24 21:36 Assessment & Plan Assessment/Plan (1) ANTONIO (acute kidney injury): (2) Metabolic encephalopathy: (3) UTI (urinary tract infection): Plan ANTONIO?current creatinine 1.43, spoke with nursing carpet finishing supervisor at the [facility] who found last creatinine on 08/14/2024 of 1.14 ?Received 1 L saline bolus in the emergency room, will hydrate overnight?0.9NS @75cc/hr x 1L ?CBC, BMP, magnesium in a.m. ?Hold nephrotoxic medications Metabolic encephalopathy?currently alert and oriented, daughter reported confusion for the last 4 to 5 days, likely due to UTI UTI?previous culture positive for Pseudomonas, failed outpatient treatment ? Continue cefepime ?Follow current urine culture, blood cultures Chronic conditions HTN?hold lisinopril HCTZ for now due to ANTONIO Parkinson's disease?carbidopa levodopa, rasagiline Anxiety?OARRS report checked, alprazolam nightly RLS?ropinirole HLD?pravastatin Chronic pain?gabapentin, OARRS report checked and she receives a quantity of 60 for 30 days, will change order to twice daily DVT PPx?heparin Diet order?regular CODE STATUS?DNR CCA without intubation as discussed with patient and daughter IP vs OBS Justification Based on differential dx, clinical care plan, and risk of adverse events, if untreated, in my clinical judgement this patient requires an acute care setting as: INPATIENT because of an expectation of an over 2 midnight stay. Estimated length of stay (# of days): 3 Documented By: Ebony Scott APRN 08/20/24 7814 Signed By: <Electronically signed by MIGUEL Scott> 08/21/24 0048 <Electronically signed by Lauro Garvey MD> 08/21/24 0611 [facility] Work Phone: [phone] 999-689203-13-2025 [place] [address] Hospitalist H&P Signed Patient: Judith Land MR#: [id number] : 1945 Acct:[id number] Age/Sex: 79 / F Adm Date: 5 Loc: Room: [address] [place] [address] Type: ADM IN Attending Dr: Lauro Garvey MD Copies to: MD Kavon Potter MD Paula G Smith, MIGUEL~ HPI DATE OF EXAMINATION: 08/20/24 CHIEF COMPLAINT: UTI HISTORY OF PRESENT ILLNESS: Ms. Land is a 79-year-old female with a PMH of Parkinson disease, HTN, HLD, CAD, anxiety, RLS, chronic pain that presented to the emergency room silv[facility] Rod[facility]guez. She has been on 3 antibiotics, Cipro, cephalexin and cefdinir as outpatient for this UTI. She completed the Cipro and cephalexin, was not able to complete cefdinir due to nausea. She states that she has been dealing with this UTI for about a month now. Daughter states that she has noticed some confusion in the last 4 to 5 days. Patient denies any fever, chills, chest pain, shortness of breath. States she was nauseous, had been dry heaving and having loose stools. She denies any pain or burning with urination, denies foulodor. Assisted to the bedside commode with the daughter's assistance, patient is weak, shaky. She does void asmall amount of yellow urine. Assisted back tothe cart +2 again. Patient states that she quit smoking in 2018, denies alcoholor illicit drug use. Urine sample with cloudy, yellow urine with a trace of protein, trace ketones, 4+ leukocytes, 50-100 WBCs, rare amount of bacteria, culture is pending. BMP with sodium 135, creatinine 1.43, calcium 11.5, ALP 122. CBC is unremarkable. There is a urine culture from 08/13/2024 was positive for Pseudomonas aeruginosa. Blood cultures were also drawn tonight and these are pending. She received 1 g of cefepime and 1 L saline bolus. She will be admitted as inpatient to the [facility] telemetry floor. Review of Systems Review of Systems Review of systems: A 10 point review of systems was obtained, negative unless noted in the HPI or below. 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 Family History (Updated 08/21/24 @ 00:37 by Ebony Scott APRN) Mother Stroke Father Cancer Lung Son Cancer Lymphoma Social History Household Members: children Smoking Status: Former smoker (quit in 2018) Tobacco Type: cigarettes Substance Use Type: None Meds Medications and Allergies Allergies Sulfa (Sulfonamide Antibiotics) Allergy (Verified 08/20/24 19:40) Difficulty Breathing sulfamethoxazole (From Bactrim) Allergy (Verified 08/20/24 19:40) Difficulty Breathing trimethoprim (From Bactrim) Allergy (Verified 08/20/24 19:40) Difficulty Breathing Home Medications alprazolam 1 mg tablet (Xanax) 1 mg PO QHS 08/20/24 [History Confirmed 08/20/24] ropinirole 0.25 mg tablet 0.25 mg PO TID 08/20/24 [History Confirmed 08/20/24] ascorbic acid (vitamin C) 1,000 mg capsule 1 g PO DAILY 08/21/24 [History Confirmed 08/21/24] aspirin 81 mg chewable tablet 81 mg PO DAILY 08/21/24 [History Confirmed 08/21/24] carbidopa 10 mg-levodopa 100 mg tablet (Sinemet) 1 tab PO TID 08/21/24 [History Confirmed 08/21/24] cholecalciferol (vitamin D3) 125 mcg (5,000 unit) capsule 125 mcg PO DAILY 08/21/24 [History Confirmed 08/21/24] gabapentin 300 mg capsule 300 mg PO TID 08/21/24 [History Confirmed 08/21/24] lisinopril 20 mg-hydrochlorothiazide 25 mg tablet 1 tab PO DAILY 08/21/24 [History Confirmed 08/21/24] lutein 25 mg-zeaxanthin 5 mg capsule 1 cap PO DAILY 08/21/24 [History Confirmed 08/21/24] multivitamin 1 tab PO DAILY 08/21/24 [History Confirmed 08/21/24] pantoprazole 40 mg tablet,delayed release 40 mg PO QAM 08/21/24 [History Confirmed 08/21/24] potassium chloride 20 mEq tablet,extended release(part/cryst) (Klor-Con M) 20 meq PO BID 08/21/24 [History Confirmed 08/21/24] pravastatin 20 mg tablet 20 mg PO DAILY 08/21/24 [History Confirmed 08/21/24] rasagiline 1 mg tablet 1 mg PO DAILY 08/21/24 [History Confirmed 08/21/24] zinc gluconate 50 mg tablet 50 mg PO DAILY 08/21/24 [History Confirmed 08/21/24] Exam Physical Exam Vital Signs: Temp Pulse Resp BP Pulse Ox O2 Del Method 97.5 F L 70 18 163/78 H 94 L Room Air 08/20/24 19:33 08/20/24 21:23 08/20/24 21:23 08/20/24 21:23 08/20/24 21:23 08/20/24 21:23 Narrative: CONST- Appears well -developed, frail, cachectic, bitemporal wasting HEAD - Normocephalic and atraumatic EENT-Sclera nonicteric, conjunctive are non-erythemic, dry oral mucosa, pharynx clear NECK-Supple, no cervical lymphadenopathy CARDIAC-normal rate, regular rhythm, S1 & S2. PULM-diminished without wheeze or rhonchi, RA, no accessory muscle use or cough noted ABD - Soft. Bowel sounds are normal. No distention. No tenderness EXTREM-no edema BLE calves, nontender SKIN- W/D good turgor MS- MAEX4 spontaneously with equal with equal strength?generalized weakness, right forearm in splint from recent fall and fracture NEURO- A&Ox3 speech clear and tongue midline, equal facial symmetry, no focal motor deficits PSYCH-Mood, affect, and behavior appropriate, slightly anxious Results - Hospitalist H&P Lab Results Labs: Laboratory Last Values Corrected WBC 7.9 X10E3/uL (3.8-11.6) 08/20/24 21:19 Uncorrected WBC Count 7.9 x10E3/uL (3.8-11.6) 08/20/24 21: RBC 4.16 x10E6/uL (3.60-5.00) 08/20/24 21:19 Hgb 13.1 g/dL (11.8-15.4) 08/20/24 21:19 Hct 38.4 % (34.0-46.4) 08/20/24 21:19 MCV 92.2 fl (80-100) 08/20/24 21: MCH 31.4 pg (24.7-34.3) 08/20/24 21: MCHC 34.1 g/dL (32.0-35.0) 08/20/24 21: RDW 14.6 % (11.9-15.3) 08/20/24 21:19 Plt Count 314 x10E3/uL (150-450) 08/20/24 21:19 MPV 9.4 fl (6.3-10.7) 08/20/24 21: Neut % (Auto) 48.3 % (.) 08/20/24: Lymph % (Auto) 34.8 % (.) 08/20/24 21: [place] % (Auto) 13.1 % (.) 08/20/24 21: Eos % (Auto) 2.1 % (.) 08/20/24 21: Baso % (Auto) 1.7 % (.) 08/20/24 21:19 Nucleat RBC Rel Count 0.2 /100 WBC (0-0.5) 08/20/24 21:19 Neut # (Auto) 3.8 x10E3/uL (1.8-7.7) 08/20/24 21:19 Lymph # (Auto) 2.7 x10E3/uL (1.00-4.8) 08/20/24 21:19 [place] # (Auto) 1.0 x10E3/uL (0.0-0.8) H 08/20/24 21:19 Eos # (Auto) 0.2 x10E3/uL (0.0-0.45) 08/20/24 21:19 Baso # (Auto) 0.1 x10E3/uL (0.0-0.2) 08/20/24 21:19 Monocyte Dist Width 15.03 % (0.00-20.00) 08/20/24 21:19 Platelet Estimate Normal (Normal) 08/20/24 21:19 Large Platelets Slight 08/20/24 21:19 Plt Morphology Comment N/A 08/20/24 21:19 RBC Morphology N/A 08/20/24 21:19 PHA Creatinine Clear 25.07 08/20/24 21:19 Sodium 135 mmol/L (136-145) L 08/20/24 21:19 Potassium 4.1 mmol/L (3.5-5.1) 08/20/24 21:19 Chloride 103 mmol/L (98-107) 08/20/24 21:19 Carbon Dioxide 24.2 mmol/L (21.0-31.0) 08/20/24 21:19 Anion Gap 11.9 mEq/L (6.0-15.0) 08/20/24 21:19 BUN 26 mg/dL (7-25) H 08/20/24 21:19 Creatinine 1.43 mg/dL (0.60-1.20) H 08/20/24 21:19 Est GFR (CKD-EPI) 37.541 mL/Min 08/20/24 21:19 Glucose 90 mg/dL (70-100) 08/20/24 21:19 Lactic Acid 0.9 mmol/L (0.5-1.9) 08/20/24 21:19 Calcium 11.5 mg/dL (8.6-10.3) H 08/20/24 21:19 Total Bilirubin 0.5 mg/dl (0.3-1.0) 08/20/24 21: AST 14 U/L (13-39) 08/20/24 21:19 ALT < 3 U/L (7-52) L 08/20/24 21: Alkaline Phosphatase 122 U/L (34-104) H 08/20/24 21:19 Total Protein 6.8 gm/dL (6.4-8.9) 08/20/24 21: Albumin 4.4 gm/dL (3.5-5.7) 08/20/24 21: Globulin 2.4 gm/dL 08/20/24 21: Albumin/Globulin Ratio 1.8 08/20/24 21:19 Urine Color Light-yellow (Yellow) 08/20/24 21:36 Urine Appearance Cloudy (Clear) A 08/20/24 21:36 Urine pH 6.0 (5.0-9.0) 08/20/24 21:36 Ur Specific [place] 1.014 (1.001-1.030) 08/20/24 21:36 Urine Protein Trace mg/dL (Negative) H 08/20/24 21:36 Urine Glucose (UA) Normal mg/dL (Normal) 08/20/24 21:36 Urine Ketones Trace (Negative) H 08/20/24 21:36 Urine Occult Blood Negative (Negative) 08/20/24 21:36 Urine Nitrite Negative (Negative) 08/20/24 21:36 Urine Bilirubin Negative (Negative) 08/20/24 21:36 Urine Urobilinogen Normal mg/dL (Normal) 08/20/24 21:36 Ur Leukocyte Esterase 4+ (Negative) H 08/20/24 21:36 Urine RBC 5-9 /HPF (0-4) H 08/20/24 21:36 Urine WBC 50-100 /HPF (0-4) H 08/20/24 21:36 Urine WBC Clumps Few /LPF (None Seen) H 08/20/24 21:36 Ur Squamous Epith Cells 3-4 /HPF (0-2) H 08/20/24 21:36 Calcium Oxalate Crystal 2+ /HPF 08/20/24 21:36 Urine Bacteria Rare /HPF (None Seen) 08/20/24 21:36 Hyaline Casts 0-8 /LPF (0-8) 08/20/24 21:36 Urine Mucus Rare /LPF 08/20/24 21:36 Assessment & Plan Assessment/Plan (1) ANTONIO (acute kidney injury): (2) Metabolic encephalopathy: (3) UTI (urinary tract infection): Plan ANTONIO?current creatinine 1.43, spoke with nursing carpet finishing supervisor at the [facility] who found last creatinine on 08/14/2024 of 1.14 ?Received 1 L saline bolus in the emergency room, will hydrate overnight?0.9NS @75cc/hr x 1L ?CBC, BMP, magnesium in a.m. ?Hold nephrotoxic medications Metabolic encephalopathy?currently alert and oriented, daughter reported confusion for the last 4 to 5 days, likely due to UTI UTI?previous culture positive for Pseudomonas, failed outpatient treatment ? Continue cefepime ?Follow current urine culture, blood cultures Chronic conditions HTN?hold lisinopril HCTZ for now due to ANTONIO Parkinson's disease?carbidopa levodopa, rasagiline Anxiety?OARRS report checked, alprazolam nightly RLS?ropinirole HLD?pravastatin Chronic pain?gabapentin, OARRS report checked and she receives a quantity of 60 for 30 days, will change order to twice daily DVT PPx?heparin Diet order?regular CODE STATUS?DNR CCA without intubation as discussed with patient and daughter IP vs OBS Justification Based on differential dx, clinical care plan, and risk of adverse events, if untreated, in my clinical judgement this patient requires an acute care setting as: INPATIENT because of an expectation ofan over 2 midnight stay. Estimated length of stay (# of days): 3 Documented By: Ebony Scott APRN 08/20/24 2729 Signed By: 08/21/24 0048 08/21/24 0611 [facility]03-13-2025 Evaluation note* Diagnosis Onset Date Resolution Status Admit Date Acute UTI acute August 20 10:48pm ANTONIO (acute kidney injury) acute August 20, 2024 10:48pm Altered mental status acute Aug 10:48pm Anxiety acute August 20 10:48pm HTN (hypertension) acute August 20, 2024 10:48pm Hypercalcemia acute August 20, 2024 10:48pm Metabolic encephalopathy acute August 20, 2024 10:48pm Parkinsons disease acute August 20, 2024 10:48pm UTI (urinary tract infection) acute August 20, 2024 10:48pm [facility] Work Phone: [phone]) 935-522103-13-2025 Evaluation note* Diagnosis Onset Date Resolution Status Admit Date Acute UTI inactive August 20 10:48pm ANTONIO (acute kidney injury) inactive August 20, 2024 10:48pm Altered mental status inactive Aug 10:48pm Anxiety inactive August 20 10:48pm HTN (hypertension) inactive August 20, 2024 10:48pm Hypercalcemia inactive August 20, 2024 10:48pm Metabolic encephalopathy inactive August 20, 2024 10:48pm Parkinsons disease inactive August 20, 2024 10:48pm UTI (urinary tract infection) inacti ve August 20, 2024 10:48pm Fracture of left superior pu bic ramus acute August 25, 2024 3:46pm Impaired mobility and activi ties of daily living acute August 25, 2024 3:46pm Acute UTI inactive August 25 3:46pm Anxiety inactive August 25 3:46pm HTN (hypertension) inactive August 25, 2024 3:46pm Metabolic encephalopathy inactive August 25, 2024 3:46pm Parkinsons disease inactive August 25, 2024 3:46pm UTI (urinary tract infection) inacti ve August 25, 2024 3:46pm [facility] Work Phone: [phone]) 380-146503-05-2025 [facility] SUBJECTIVE Chief Complaint Patient presents with Cardiac Stress Test Hyperlipidemia Hypertension Edema Judith Land is a 79 y.o. female here for follow-up. Her daughter Kathie accompanied her today. HPI PMHx: HTN, HLD, COPD, Parkinson's Patient here for 6 mo follow up hypertension and hyperlipidemia. Had labs last week, and lipid panel in Apr 2024. Had surgery on her wrist yesterday s/p wrist fracture. Denies chest pain, SOB, and palpitations. Has had some LE edema lately. Dr. Sams gave her RX for compression stockings. He also have her RX for spironolactone 50mg x3 days, which did help some daughter says. Her edema has been going on for the past couple of months. Worsens as the day goes on, will be better in the morning. Compression stockings are helping. Weight has been stable. Patient Active Problem List Diagnosis History of recurrent UTI (urinary tract infection) Hyperlipidemia Hypertension Pre-operative cardiovascular exam, new EKG abnormalities c/w ischemia Renal stone UPJ (ureteropelvic junction) obstruction Ureteral stricture Other fatigue H/O emphysema ([facility]) Kidney disease Hiatal hernia Parkinson's disease ([facility]) Incisional hernia, without obstruction or gangrene Postoperative incisional hernia Incisional hernia without obstruction or gangrene Hyperreflexia Abnormal posture Memory changes Neuropathy Ataxia Carpal tunnel syndrome of right wrist Dyskinesia Intention tremor Other chronic pain Paresthesia Primary insomnia Right hemiplegia ([facility]) RLS (restless legs syndrome) Past Medical History: Diagnosis Date Chronic gastric ulcer without hemorrhage and without perforation COPD (chronic obstructive pulmonary disease) ([facility]) Emphysema lung ([facility]) HISTORY OF Hiatal hernia 05/2023 Hyperlipidemia Hypertension Parkinson disease ([facility]) Renal stones TIA (transient ischemic attack) 06/2023 SYMPTOMS UPJ obstruction, acquired UTI (urinary tract infection) 06/2023 Family History Problem Relation Name Age of Onset Stroke Mother Stroke Brother Other (cabg) Mother's Sister Coronary artery disease Mother's Sister Stroke Maternal Grandmother Social History Tobacco Use Smoking status: Former Current packs/day: 0.00 Types: Cigarettes Quit date: 2017 Years since quittin.1 Smokeless tobacco: Never Substance Use Topics Alcohol use: Never Drug use: Never Allergies Allergen Reactions Sulfa (Sulfonamide Antibiotics) Anaphylaxis Trazodone Other reaction(s): Shaking/ Tremors ROS Cardiovascular: Positive for leg swelling. Musculoskeletal: Positive for arthritis, back pain and joint pain. Neurological: Positive for light-headedness and tremors. All other systems reviewed and are negative. OBJECTIVE Visit Vitals BP 130/70 (BP Location: Left arm, Patient Position: Sitting) Pulse 77 Ht 1.676 m (5' 6 ) Wt 53.1 kg (117 lb) SpO2 (!) 88% BMI 18.88 kg/m??? OB Status Postmenopausal Smoking Status Former BSA 1.57 m??? Medications: Current Outpatient Medications: ALPRAZolam (Xanax) 1 mg tablet, Take 1 tablet by mouth in the morning., Disp: , Rfl: amantadine (Symmetrel) 100 mg tablet, TAKE 1 TABLET BY MOUTH TWO TIMES A DAY. TAKE WITH FIRST AND SECOND DOSE OF SINEMET., Disp: , Rfl: aspirin 81 mg EC tablet, 1 (one) time each day at the same time., Disp: , Rfl: carbidopa-levodopa (Sinemet) 25-100 mg tablet, TAKE 1/2 TABLET BY MOUTH 3 TIMES A DAY FOR 7 DAYS THEN 1 TABLET 3 TIMES A DAY *7AM, NOON AND 5PM*, Disp: , Rfl: gabapentin (Neurontin) 300 mg capsule, TAKE 1 CAPSULE BY MOUTH ONCE DAILY X3DAYS, 1 CAPSULE TWICE DAILY X3DAYS THEN 1 CAPSULE 3 TIMES DAILY, Disp: , Rfl: isosorbide mononitrate ER (Imdur) 60 mg 24 hr tablet, Take 60 mg by mouth in the morning., Disp: , Rfl: Klor-Con M20 20 mEq ER tablet, Take 20 mEq by mouth in the morning and at bedtime., Disp: , Rfl: pantoprazole (ProtoNix) 40 mg EC tablet, TAKE 1 TABLET BY MOUTH ONCE A DAY BEFORE BREAKFAST *DO NOT CRUSH/CHEW/SPLIT*, Disp: 90 tablet, Rfl: 11 pravastatin (Pravachol) 20 mg tablet, Take 20 mg by mouth at bedtime., Disp: , Rfl: rasagiline (Azilect) 1 mg tablet, 1 mg 1 (one) time each day., Disp: , Rfl: rOPINIRole (Requip) 0.5 mg tablet, every 8 (eight) hours., Disp: , Rfl: cholecalciferol (Vitamin D-3) 50 MCG (2000 UT) tablet, Take 2,000 Units by mouth in the morning., Disp: , Rfl: cyclobenzaprine (Flexeril) 10 mg tablet, Take 10 mg by mouth if needed in the morning and at bedtime., Disp: , Rfl: hydroCHLOROthiazide (HYDRODiuril) 25 mg tablet, Take 1 tablet (25 mg) by mouth in the morning., Disp: 30 tablet, Rfl: 11 lisinopril 40 mg tablet, Take 1 tablet (40 mg) by mouth in the morning., Disp: 30 tablet, Rfl: 11 sucralfate (Carafate) 1 gram tablet, Take 1 g by mouth in the morning., Disp: , Rfl: Physical Exam Vitals reviewed. Constitutional: Appe (more content not included)...[facility]03-05-2025 NotePatient here for 6 mo follow up hypertension and hyperlipidemia. Had labs last week, and lipid panel in Apr 2024. Had surgery on her wrist yesterday s/p wrist fracture. Denies chest pain, SOB, and palpitations. Has had some LE edema lately. Dr. Sams gave her RX for compression stockings. He also have her RX for spironolactone 50mg x3 days, which did help some daughter says. Review of Systems Cardiovascular: Positive for leg swelling. Musculoskeletal: Positive for arthritis, back pain and joint pain. Neurological: Positive for light-headedness and tremors. All other systems reviewed and are negative.[facility] 08-12-2024 Evaluation + Plan noteExtracted from: Title:ANES Post-operative No te---General Serenity Author:Yulissa Dietrich MD. Date:08/12/24 Plan Transfer/Discharge: Transfer/Discharge Discharge when meets criteria ( From PACU to floor ). Extracted from: Title:ANES Pre-operative Note Author:Yulissa Dietrich MD Date:08/12/24 Plan [employer] Anesthesiologists (ASA) physical status classification: Class III. Anesthetic Preoperative Plan: Anesthesia General. [facility] [id number] Hospital Discharge instructions Patient Education 08/12/2024 10:26:35 Post Op Patient Instructions - FT (Custom) (CUSTOM) 08/08/2024 17:00:07 [place] - Home Care Instructions (Custom) [place], [place] [facility] OUTPATIENT SURGERY Home Care [...] not drive. Supa Owen DO [facility] [address] [place], [place] [id number] Reviewed: 09-16 Follow Up Care 08/06/2024 11:32:31 With:Supa Owen DO ORBob Address: [address] [place] [address]- When:08/25/2024 13:15:00 [facility] 03-04-2025 NoteProgress Note-Physician Patient: JUDITH LAND Age: 79 years Sex: Female : 1945 Associated Diagnoses: None Author: Serenity HERRERA, Yulissa W. Postoperative Information Postoperative disposition: Postoperative disposition: To PACU. Optimetrix number: Optimetrix number [id number]. Anesthetic utilized: General. Health Status Allergies: Allergic Reactions (Selected) Severity Not Documented Sulfa drugs- Unknown. Physical Examination Vital Signs 08/12/2024 11:17 EST Heart Rate Monitored 86 bpm SpO2 97 % 08/12/2024 11:15 EST Systolic Blood Pressure 113 mmHg Diastolic Blood Pressure 54 mmHg LOW Mean Arterial Pressure, Monitered 74 mmHg 08/12/2024 10:48 EST Heart Rate Monitored 77 bpm SpO2 92 % 08/12/2024 10:48 EST Systolic Blood Pressure 94 mmHg Diastolic Blood Pressure 52 mmHg LOW Blood Pressure Location Left arm Mean Arterial Pressure, Monitered 66 mmHg 08/12/2024 10:45 EST SpO2 85 % LOW 08/12/2024 10:41 EST Respiratory Rate 18 br/min 08/12/2024 10:38 EST Heart Rate Monitored 91 bpm Respiratory Rate Monitored 19 br/min Systolic Blood Pressure 102 mmHg Diastolic Blood Pressure 47 mmHg LOW Mean Arterial Pressure, Cuff 65 mmHg SpO2 94 % 08/12/2024 10:30 EST Heart Rate Monitored 87 bpm Respiratory Rate Monitored 12 br/min Systolic Blood Pressure 111 mmHg Diastolic Blood Pressure 54 mmHg LOW Mean Arterial Pressure, Cuff 73 mmHg SpO2 98 % 08/12/2024 10:29 EST SpO2 99 % 08/12/2024 10:20 EST Heart Rate Monitored 89 bpm Respiratory Rate Monitored 12 br/min Systolic Blood Pressure 124 mmHg Diastolic Blood Pressure 54 mmHg LOW Mean Arterial Pressure, Cuff 77 mmHg SpO2 99 % 08/12/2024 10:15 EST Heart Rate Monitored 90 bpm Respiratory Rate Monitored 12 br/min Systolic Blood Pressure 116 mmHg Diastolic Blood Pressure 54 mmHg LOW Mean Arterial Pressure, Cuff 75 mmHg SpO2 99 % 08/12/2024 10:10 EST Heart Rate Monitored 89 bpm Respiratory Rate Monitored 10 br/min Systolic Blood Pressure 121 mmHg Diastolic Blood Pressure 53 mmHg LOW Mean Arterial Pressure, Cuff 76 mmHg SpO2 99 % 08/12/2024 10:08 EST Temperature Temporal Artery 36.4 DegC Heart Rate Monitored 91 bpm Respiratory Rate Monitored 12 br/min Systolic Blood Pressure 119 mmHg Diastolic Blood Pressure 52 mmHg LOW Mean Arterial Pressure, Cuff 74 mmHg SpO2 98 % 08/12/2024 7:50 EST Heart Rate Monitored 83 bpm Systolic Blood Pressure 172 mmHg HI Diastolic Blood Pressure 74 mmHg Blood Pressure Location Left arm Mean Arterial Pressure, Monitered 106 mmHg 08/12/2024 7:50 EST Apical Heart Rate 82 bpm 08/12/2024 7:49 EST Heart Rate Monitored 89 bpm SpO2 96 % 08/12/2024 7:48 EST Respiratory Rate 16 br/min 08/12/2024 7:48 EST Systolic Blood Pressure 174 mmHg HI Diastolic Blood Pressure 79 mmHg Blood Pressure Location Right arm Mean Arterial Pressure, Monitered 110 mmHg 08/12/2024 7:48 EST Temperature Axillary 36.6 DegC Pain Assessment: Controlled. General: Awake, Alert, Appropriate. Respiratory: Adequate air exchange. Cardiovascular: Stable, Normal peripheral perfusion. Neurological: Normal sensory function, Normal motor function. Assessment Anesthetic outcome No anesthetic complications noted. Adequate pain relief. able to void without difficulty, able to ambulate with assist, tolerating PO intake, no N/V. Review / Management Condition: Stable. Plan Transfer/Discharge: Transfer/Discharge Discharge when meets criteria ( From PACU to floor ).[facility]:Result Comment: Electronically Signed By: Serenity HERRERA, Yulissa Lott\\.br\\Date and Time Signed: 08/12/2510:30 [id number] NotePatient Education - Text [place], [place] [facility] OUTPATIENT SURGERY Home Care [...] not drive. Supa Owen DO [facility] [address] [place] [address] Reviewed: 09-16[facility]03-04-[facility] NoteProgress Note-Physician Patient: JUDITH LAND Age: 79 years Sex: Female : 1945 Associated Diagnoses: None Author: Supa Owen DO Postoperative Information Procedure: L wrist ORIF Preoperative Diagnosis: L distal rad /ulna fx. Postoperative Diagnosis: same. Performed by: Lexie. Sous Chef Kitchen Manager: Ingrid. Specimens Removed: none. Prosthesis: Arthrex. . Estimated Blood Loss: 0 ml. Complications: None. Anesthesia type: General.[facility] HospitalComment on above:Result Comment: Electronically Signed By: Supa Owen DO\\.br\\Date and Time Signed: 08/12/24 10:14 [id number] NoteProgress Note-Physician Patient: JUDITH LAND Age: 79 years Sex: Female : 1945 Associated Diagnoses: None Author: Serenity HERRERA, Yulissa Lott Preoperative Information Anesthesia history: Patient history: No prior anesthetic problems. Informed consent: Signed by patient. Re-evaluation prior to induction: Initial evaluation reviewed: No significant change. Review of Systems Respiratory: Negative except as documented in history of present illness. Cardiovascular: Negative except as documented in history of present illness. Health Status Allergies: Allergic Reactions (Selected) Severity Not Documented Sulfa drugs- Unknown., Allergies (1) Active Severity Reaction sulfa drugs Unknown Current medications: (Selected) Inpatient Medications Ordered Lactated Ringers IV Michaelle 1000 mL 1,000 mL: 1,000 mL, IV, 80 mL/hr, Routine, Start date 08/12/24 7:31:00 EST, 12.5 hour(s), Total volume (mL): 1,000, 54.2 kg, 1.59, m2 Sodium Chloride 0.9% IV Michaelle 1000 mL 1,000 mL: 1,000 mL, IV, 150 mL/hr, Routine, Start date :45:00 EST, 6.7 hour(s), Total volume (mL): 1,000, 54.2 kg, 1.59, m2 Zofran 4 mg/2 mL Injection: 4 mg = 2 mL, Injection, IV Push, q4hr PRN Nausea/Vomiting, Routine, Start date 08/12/24 7:31:00 EST, 08/12/24 7:31:00 EST acetaminophen 325 mg Tab: 650 mg = 2 tab(s), Tab, Oral, q4hr PRN Pain/Fever, Routine, Start date 08/12/24 7:31:00 EST, 08/12/24 7:31:00 EST acetaminophen-hydrocodone 325 mg-5 mg oral tablet: 1 tab(s), Tab, Oral, q4hr PRN Pain 4-7 for 5 day(s), Stop date 08/17/24 7:30:00 EDT, Routine, Start date 08/12/24 7:31:00 EST cefazolin additive + Sodium Chloride 0.9% intravenous solution 50 mL: 2 gm = 1 EA, Powder-Inj, IV Piggyback, PREOP, Routine, Start date 08/12/24 7:45:00 EST, 100 mL/hr, Infuse over 30 minute(s) Prescriptions Prescribed Colace 100 mg Cap: 100 mg = 1 cap(s), Oral, BID, PRN for constipation, # 40 cap(s), Refills(s) 0, Pharmacy: [facility]/pharmacy #[id number], 167, cm, 08/07/24 6:28:00 EST, Height/Length Dosing, 54.2, kg, 256:28:00 EST, Weight Dosing [place] 325 mg-5 mg oral tablet: See Instructions, for pain, 30 tab(s), Refill(s) 0, 1 - 2 po q4-6h prn pain Dx: S52.501D Duration: 7 days, [facility]/pharmacy #[id number], 167, cm, 08/07/24 6:28:00 EST, Height/Length Dosing, 54.2, kg, 08/07/24 6:28:00 EST, Weight Dosing Documented Medications Documented Pantoprazole [address] Tab: 40 mg = 1 tab(s), Oral, BID, Refills(s) 0, Indigestion Pravachol 20 mg Tab: 20 mg = 1 tab(s), Oral, Daily, High cholesterol Vitamin D: Refills(s) 0 alprazolam 1 mg Tab: 1 mg = 1 tab(s), Oral, PRN for anxiety amLODIPine 5 mg Tab: 5 mg = 1 tab(s), Oral, Daily, Refills(s) 0, High blood pressure amantadine 100 mg Tab: 100 mg = 1 tab(s), Oral, TID, Refills(s) 0, Other (see comment) aspirin 81 mg oral tablet: 81 mg = 1 tab(s), Oral, Daily carbidopa-levodopa 25 mg-100 mg ER Tab: 1 tab(s), Oral, TID, Refill(s) 0, Other (see comment) gabapentin 300 mg Cap: 300 mg = 1 cap(s), Oral, qPM, Refills(s) 0 hydrochlorothiazide-lisinopril 25 mg-20 mg Tab: 1 tab(s), Oral, Daily, High blood pressure potassium chloride 20 mEq ER Tab: 20 mEq = 1 tab(s), Oral, BID, Prophylaxis rasagiline 1 mg oral tablet: 1 mg = 1 tab(s), Oral, Daily, Refills(s) 0, Other (see comment) ropinirole 0.25 mg Tab: 0.25 mg = 1 tab(s), Oral, Bedtime, Refills(s) 0, Other (see comment) sucralfate 1 g Tab: 1 gm = 1 tab(s), Oral, Daily, Refills(s) 0, Home Medications (16) Active alprazolam 1 mg Tab 1 mg = 1 tab(s), PRN, Oral amantadine 100 mg Tab 100 mg = 1 tab(s), Oral, TID amLODIPine 5 mg Tab 5 mg = 1 tab(s), Oral, Daily aspirin 81 mg oral tablet 81 mg = 1 tab(s), Oral, Daily carbidopa-levodopa 25 mg-100 mg ER Tab 1 tab(s), Oral, TID Colace 100 mg Cap 100 mg = 1 cap(s), PRN, Oral, BID gabapentin 300 mg Cap 300 mg = 1 cap(s), Oral, qPM hydrochlorothiazide-lisinopril 25 mg-20 mg Tab 1 tab(s), Oral, Daily [place] 325 mg-5 mg oral tablet See Instructions, PRN Pantoprazole [address] Tab 40 mg = 1 tab(s), Oral, BID potassium chloride 20 mEq ER Tab 20 mEq = 1 tab(s), Oral, BID Pravachol 20 mg Tab 20 mg = 1 tab(s), Oral, Daily rasagiline 1 mg oral tablet 1 mg = 1 tab(s), Oral, Daily ropinirole 0.25 mg Tab 0.25 mg = 1 tab(s), Oral, Bedtime sucralfate 1 g Tab 1 gm = 1 tab(s), Oral, Daily Vitamin D , Medications (6) Active Scheduled: (1) ceFAZolin + Sodium Chloride 0.9% Minibag 50 mL 2 gm 1 EA, IV Piggyback, PREOP Continuous: (2) Lactated Ringers 1,000 mL 1,000 mL, IV, 80 mL/hr Sodium Chloride 0.9% 1,000 mL 1,000 mL, IV, 150 mL/hr PRN: (3) acetaminophen 325 mg Tab UD [F] 650 mg 2 tab(s), Oral, q4hr acetaminophen-HYDROcodone 325 mg-5 mg Tab [F] 1 tab(s), Oral, q4hr ondansetron 2 mg/mL Inj [F] 4 mg 2 mL, IV Push, q4hr Problem list: All Problems H/O emphysema / SNOMED CT 6013289769 / Confirmed High cholesterol / SNOMED CT 83076146 / Confirmed Hydronephrosis, right / SNOMED CT 82461956 / Confirmed (more content not included)...[facility]:Result Comment: Electronically Signed By: Serenity HERRERA, Yulissa Richter.br\\Date and Time Signed: 08/12/2506:43 [id number] History of Present illness Narrative* Teodora David - 08/06/2024 10:30 AM EST Images from the original note were not included. GENERAL HISTORY AND PHYSICAL: NAME: Judith Land : 1945 CHIEF COMPLAINT: Right distal radius [...] urinary tract infection ongoing. She was at [facility] and the discussion was that it did not warrant admission to the hospital. [facility] [place] [facility] [...] upon age and gender. Her neurologist from [facility] has deemed thisindividual safe in the [facility] setting for surgery such as this. We did outline the fact that we will need to define her current disease and she is going to the [facility]. We did explain to the family that [...] 08/07/2024 10:39 AM EST documented in this encounterUniversity Health Lakewood Medical [id number] Hospital Discharge instructions Patient Education 08/03/2024 21:46:36 [...] Treatment for this condition includes: Antibiotic medicine. Qdar-rsk-kzgjtfo medicines to treat discomfort. Drinking enough water [...] Follow these instructions at home: Medicines Take zbge-nbj-xarqmiz and prescription medicines only as told by [...] provider. Document Revised: 01/02/2021 Document Reviewed: 01/07/2021 [employer] A[employer] Patient Education 2023 [employer]. Follow Up Care 08/03/2024 18:52:10 With:Kavon Flaquita Address: [address] [place], [place] [id number] Business (1) When:08/06/2024 21:45:46 Comments:Call the office [...] you develop any new or worsening symptoms. [facility] [id number] NoteED Patient Education Note Obstetrics and Gynecology [...] this condition includes: ??? Antibiotic medicine. ??? Udkd-uba-skvlypa medicines to treat discomfort. ??? Drinking enough [...] these instructions at home: Medicines ??? Take tjxa-vxb-axvrjfo and prescription medicines only as told by [...] care provider. Make tracy (more content not included)...[facility]02-[facility] Evaluation + Plan noteExtracted from: Title:ED Note Author:Demarco Beaver DO Date: Acute UTI (N39.0: Urinary tr act infection, site not specified) Orders: cephalexin, 500 mg = 1 cap(s), Cap, Oral, Once, Stop date 08/03/24 21:45:00 EST, STAT, Start date 08/03/24 21:45:00 EST, 08/03/24 21:45:00 EST cephalexin, 500 mg = 1 cap(s), Oral, q12hr, X 5 day(s), # 10 cap(s), Refills(s) 0, Pharmacy: [facility]/pharmacy #[id number], 167, cm, 08/03/24 19:04:00 EST, Height/Length Dosing, 54.2, kg, 08/03/24 19:04:00 EST, Weight Dosing Basic Metabolic Panel CBC w/ Auto Diff CT Head or Brain w/o Contrast ED Cardiac Monitoring eGFR Extra Blue Tube Routine Capillary Glucose POC UA with Cult Rflx Urine Culture Diagnostic Tests Pending * Urine Culture 08/03/24 [facility] [id number] Telephone encounter Note* Telephone Encounter - Gabbi Ennis - 07/30/2024 1:57 PM EST Form received via fax. Not really anything for RN's to complete. Sent via Flowboard to Cherie. [facility]02-19-2025 Miscellaneous Notes* Telephone Encounter - Gabbi Ennis - 07/30/2024 1:57 PM EST Form received via fax. Not really anything for RN's to complete. Sent via Flowboard to Cherie. * Telephone Encounter - Gabbi Ennis - 07/30/2024 1:[address] Owen office phoned - patient fell an broke her ulna and will need surgery. They would like to discuss with Cherie from PD standpoint if ok for surgery. [phone] She will also fax over a generic form for completion. Can either call or complete form. documented in this encounterFort [facility] Hospital02-[facility] Telephone encounter Note * Telephone Encounter - Gabbi Ennis - 07/30/2024 1:[address] Owen office phoned - patient fell an broke her ulna and will need surgery. They would like to discuss with Cherie from PD standpoint if ok for surgery. [phone] She will also fax over a generic form for completion. Can either call or complete form. [facility]02-19-2025 History of Present illness Narrative* Teodora David - 07/30/2024 8:00 AM EST Images from the original note were not included. GENERAL HISTORY AND PHYSICAL: NAME: Judith Land : 1945 CHIEF COMPLAINT: Right wrist fracture. [...] She has now been referred to the [facility] on this. We will go ahead [...] 08/03/2024 4:35 PM EST documented in this encounterUniversity Health Lakewood Medical [id number] Hospital Discharge instructions Follow Up Care 07/26/2024 15:54:15 With:Kavon Sams Address: [address] [place] [phone] Business (1) When:Within 3 Day(s) [facility] [id number] Evaluation + Plan noteExtracted from: Title:ED Note Author:Sae Morfin DO Date:07/12 11/02 Altered mental status [...] BID, # 14 tab(s), Refills(s) 0, Pharmacy: [facility]/pharmacy #[id number], 167, cm, 07/26/24 16:07:00 EST, Height/Length [...] Diagnostic Tests Pending * Urine Culture 07/26/24 [facility] 02-13-2025 Hospital Discharge instructions Patient Education 07/24/2024 [...] by your health care provider. Medicines Take rvex-rih-sxoorlv and prescription medicines only as told by your health care provider. Ask your health care provider if the medicine prescribed to you: ?Requires you to avoid driving or using machinery. ?Can cause constipation. You may need to take these actions to prevent or treat constipation: ?Drink enough fluid to keep your urine pale yellow. ?Take evln-znr-hfrhxtc or prescription medicines. ?Eat foods that are [...] provider. Document Revised: 09/06/2020 Document Reviewed: 09/06/2020 [employer] ASA Patient Education 2023 [employer]. 07/24/2024 21:34:14 Cast or Splint Care, Adult [...] on part of yourbody. General instructions Take bnmh-jgy-xyxyaxb and prescription medicines only as told by [...] provider. Document Revised: 11/22/2021 Document Reviewed: 11/22/2021 [employer] ASA Patient Education 2023 [employer]. Follow Up Care 07/24/2024 18:45:49 With:Kavon Sams Address: [address] [place] [phone] Business (1) When:07/27/2024 21:43:51 Comments:Call the office [...] or worsening symptoms. With:Supa Owen Address: [address] [place] [phone]- Business (1) When:07/27/2024 21:32:22 Comments:Call office tomorrow to arrange for short-term follow-up for your distal radius fracture.Take pain medication as prescribed. [facility] 02-13-2025 NoteED Patient Education Note Orthopedics Colles [...] your health care provider. Medicines ??? Take kpay-ibh-bfetdya and prescription medicines only as told by your health care provider. ??? Ask your health care provider if the medicine prescribed to you: ? Requires you to avoid driving or using machinery. ? Can cause constipation. You may need to take these actions to prevent or treat constipation: ? Drink enough fluid to keep your urine (more content not included)...[facility] Evaluation + Plan noteExtracted from: Title:ED Note Author:Demarco Beaver DO Date: Accidental fall (W19.XXXA: U nspecified fall, initial encounter) Wrist injury (S69.90XA: Unspecified injury of unspecified wrist, hand and finger(s), initial encounter) Orders: CT Head or Brain w/o Contrast CT Spine Cervical w/o Contrast ED Cardiac Monitoring NPO Diet Oxygen Therapy Pulse Oximetry Continuous Saline Lock Insert XR Wrist 3+ Views Right [facility] [id number] Instructions* Patient Instructions* Cherie Cedeno PA-C - 07/16/2024 3:36 PM EST It [...] Parkinson's Disease Exercise Class at your local [facility] [employer] makes daily videos with voice exercises to help keep your voiceloud and clear. This is free on [employer] Hand[employer] - take a look at [employer] for tremor. This often will help people write easier I would like to see you back in about 7 months, before next winter. If you need assistance with scheduling, please call [phone], option 2 to speak with one of our scheduling team members. Movement Disorders Medication Schedule: Medications breakfast lunch bedtime ropinerole 0.25mg 1 azilect 1mg 1 sinemet CR 25/100mg 1 1 1 amantadine 100 mg 1 1 1 Return at or around: 01/13/25 If there are any concerns before your next visit, please call or you can send a message through [employer]. You can also now schedule and select appointments through [employer]. Cherie Cedeno PA-C documented in this encounterFort [facility] Hospital02-05-2025 History of Present illness Narrative* Cherie Cedeno PA-C - 07/16/2024 3:00 PM EST [facility] - FOLLOW UP EVALUATION Primary Movement Disorders Neurologist: David Valente MD Primary Movement Disorders BRUCE: STEPHON Coe Md (Inactive) No address on file Dear Md Kavon Sams (Inactive): I had the pleasure of seeing Ms. Land for follow-up today. As you know she [...] She has strong family support with her d poppyhter and granddaughter. Movement Disorders Medications Schedule - [...] Total -46.87 Assessment and Plan: Assessment Ms. Land is a right-handed 79 year old female with Parkinson's Disease since 2014. She presents to [facility] for care after many years of [...] possibility of Parkinson's disease class at the [facility]. The following are the current problems [...] Parkinson's Disease Exercise Class at your local [facility] Voice - The Parkinson Voice Project [...] you need assistance with scheduling, please call [phone], option 2 to speak with one of our scheduling team members. Interested in clinical research? Not currently Updated Movement Disorders Medication Schedule: Medications breakfast lunch bedtime ropinerole 0.25mg 1 azilect 1mg 1 sinemet CR 25/100mg 1 1 1 amantadine 100 mg 1 1 1 Return at or around: 01/13/25 Level of service : 04046 (40-68 min). Time spent 43 min on the day of service, which included preparing to see the patient, [id number] patient care, completing clinical documentation, obtaining and/or [...] hesitate to call with any questions. Sincerely, Cherie Cedeno PA-C * Ga Bob MA - 07/16/2024 2:40 PM EST Reason for WROTF Tablet to not get completed: Patient refused because declined all tablets documented in this encounterFort Hamilton Hospital02-05-2025 NoteHNO ID: [id number] Author: CHERIE CEDENO PA-C Service: ? Author Type: Physician Sous Chef Kitchen Manager Type: Progress Notes Filed: 07/16/2024 17:27 Note Text: [facility] - FOLLOW UP EVALUATION Primary Movement Disorders Neurologist: David Valente MD Primary Movement Disorders BRUCE: STEPHON Coe Md (Inactive) No address on file Dear Md Kavon Sams (Inactive): I had the pleasure of seeing Ms. Land for follow-up today. As you know she [...] with one or two (more content not included)...[facility]02-05-2025 NoteHNO ID: [id number] Author: GA BOB MA Service: ? Author Type: Tailings Dam Laborer Type: Progress Notes Filed: 07/16/2024 17:27 Note Text: Reason for WROTF Tablet to not get completed: Patient refused because declined all tabletsC[facility] Clinic11-11-2024 History of Present illness Narrative* Cathie Gill NP - 04/21/2024 8:40 AM EST Images from the original note were not included. Chief Complaint Patient presents with Parkinson's Disease Insomnia Carpal Tunnel Subjective Judith Land, 79 y.o., female Patient presents today for a follow up to Parkinson's. She presents with a family member, Jaimee. She admits ED visit at [facility] recently for fall, states she was diagnosed with a UTI. Currently on Cipro for this and she states she is feeling much better.. She follows with [facility] movement clinic and F pain management and [...] wrist extensors , wrist flexor 5/5 , rn acute care strength 4/5. LUE Strength deltoid , biceps , triceps , wrist extensors , wrist flexor , rn acute care strength 5/5. RLE Strength illopsoas, quadriceps, tibialis [...] knee reflex 2+. Dangelo's Sign negative. Coordination: Wgxcsb-xk-wfgb testing is normal Gait: Normal Review and summary of old records: Cardio note (Dr. Joe Preciado) on 12/20/23: Abnormal stress test with EKG changes but no perfusion defects as per report. No cardiac complaints. COPD, hypertension, hyperlipidemia. Again discussed invasive ischemic evaluation with patient. Patient understands risks and declined evaluation. Continue aspirin, statin, beta-ayo. Follow-up in 3 months MRI of the brain with and without contrast at [facility] on 08/14/2023: No acute intracranial abnormality. No [...] the brain with and without contrast at [facility], on 05/15/23: no acute intracranial pathology or [...] whether dyskinesia present, unspecified whether manifestations fluctuate (CMS/[facility]) It is my impression the patient [...] some improvement. She is now following with [facility] movement clinic and is now taking Sinemet CR along with amantadine with substantial improvement in her symptoms. PLAN: - Continue follow up with [facility] movement clinic as per their recommendations. - [...] these concerns along with ECHO results (Dr. Joe Preciado). Per most recent cardio note in [...] on the right including pain and decreased rn acute care strength. She admits to previous use of [...] with pain management Service was performed by Cathie JEROME in collaboration with Dr. Rao who [...] 04/21/2024 10:10 AM EST documented in this encounterUniversity Health Lakewood Medical [id number] History of Present illness Narrative* Cherie Cedeno PA-C - 02/22/2024 3:00 PM EDT [facility] - FOLLOW UP EVALUATION Md Kavon Sams (Inactive) No address on file Dear Md Kavon Sams (Inactive): I had the pleasure of seeing Ms. Land for follow-up today. As you know she [...] some every day Dry mouth - please hand picker some OTC spray to help Please [...] that she is going to travel to [place] to see her friends, which prior to [...] Total -31.91 Assessment and Plan: Assessment Ms. Land is a right-handed 79 year old female with Parkinson's Disease since 2014. She presents to [facility] spring for care after many years of [...] or around: 11/21/24 Level of service : 86975 (40-54 min). Time spent 41 min on the day of service, which included preparing to see the patient, nobq-kv-wokh patient care, completing clinical documentation, obtaining and/or [...] hesitate to call with any questions. Sincerely, Cherie Cedeno PA-C * Ga Bob MA - 02/22/2024 2:44 PM EDT Reason for WROTF Tablet to not get completed: Patient wishes to abort because of stress/struggling or is interrupted by their injection mold technician. documented in this encounterFort Hamilton Hospital09-13-2024 NoteHNO ID: [id number] Author: CHERIE CEDENO PA-C Service: ? Author Type: Physician Sous Chef Kitchen Manager Type: Progress Notes Filed: 02/22/2024 16:46 Note Text: [facility] - FOLLOW UP EVALUATION Md Kavon Sams (Inactive) No address on file Dear Md Kavon Sams (Inactive): I had the pleasure of seeing Ms. Land for follow-up today. As you know she [...] some every day Dry mouth - please hand picker some OTC spray to help Please [...] that she is going to travel to [place] to see her friends, which prior to [...] b) mild slowing, c) (more content not included)...[facility]09-13-2024 NoteHNO ID: [id number] Author: GA BOB MA Service: ? Author Type: Tailings Dam Laborer Type: Progress Notes Filed: 02/22/2024 16:46 Note Text: Reason for WROTF Tablet to not get completed: Patient wishes to abort because of stress/struggling or is interrupted by their injection mold technician.[facility]08-05-2024 Instructions* Patient Instructions* Cherie Cedeno PA-C - 01/14/2024 2:43 PM EDT It [...] some every day Dry mouth - please hand picker some OTC spray to help Please [...] or you can send a message through [employer]. You can also now schedule and select appointments through [employer]. Cherie Cedeno PA-C documented in this encounterFort Hamilton Hospital08-05-2024 History of Present illness Narrative* Cherie Cedeno PA-C - 01/14/2024 2:00 PM EDT [facility] - FOLLOW UP EVALUATION Md Kavon Sams (Inactive) No address on file Dear Md Kavon Sams (Inactive): I had the pleasure of seeing Ms. Land for follow-up today. As you know she [...] the amplitude decrements starting after the 1st kkfw-uyr-yskcc sequence. Arm Movements Right 1-Slight. a) the [...] Filed Total Assessment and Plan: Assessment Ms. Land is a right-handed 78 year old female with Parkinson's Disease since 2014. She presents to [facility] spring for care after many years of [...] some every day Dry mouth - please hand picker some OTC spray to help Please come back to see me February 21 at 3:00PM Interested in clinical research? Not currently Updated Movement Disorders Medication Schedule: Medications breakfast lunch bedtime ropinerole 0.25mg 1 azilect 1mg 1 sinemet CR 25/100mg 1 1 1 amantadine 100 mg 1 Return at or around: 02/14/24 Level of service : 17618 + 2 units 52109 ( > 55 min, [id number] for each 15 min > 40). Time spent 75 min on the day of service, which included preparing to see the patient, yxyt-ld-etjy patient care, completing clinical documentation, obtaining and/or [...] hesitate to call with any questions. Sincerely, Cherie Cedeno PA-C documented in this encounterFort Hamilton Hospital08-05-2024 NoteHNO ID: [id number] Author: CHERIE CEDENO PA-C Service: ? Author Type: Physician Sous Chef Kitchen Manager Type: Progress Notes Filed: 01/14/2024 20:44 Note Text: [facility] - FOLLOW UP EVALUATION Md Kavon Sams (Inactive) No address on file Dear Md Kavon Sams (Inactive): I had the pleasure of seeing Ms. Land for follow-up today. As you know she [...] c) the amplitude decrement (more content not included)...[facility]07-11-2024 NoteCardiology Clinic Note Chief Complaint: New patient for abnormal stress test HPI: Judith Land is a 78 y.o. female with a [...] without perforation, COPD (chronic obstructive pulmonary disease) ([facility]), Emphysema lung ([facility]), Hiatal hernia (05/2023), Hyperlipidemia, Hypertension, Parkinson disease ([facility]), Renal stones, TIA (transient ischemic attack) [...] No rubs, No gallops. (more content not included)...[facility]06-18-2024 Note Subjective Patient ID: Judith Land is a 78 y.o. female who presents for Post-op (Judith is here today for a post op visit for an incisional hernia, [facility] ). HPI 78 years [...] the past 36 hour(s)). No follow-ups on file.[facility]05-30-2024 Note* Addendum Note - David Valente MD - 11/08/2023 3:27 PM EDTAddended by: DAVID VALENTE on: 11/08/2023 03:27 PM Modules accepted: Orders [facility]05-30-2024 Miscellaneous Notes* Addendum Note - David [...] they have returned. * [facility] 11/08/2023 11:52 AM EDT Jaimee (pt' granddaughter) called to report this week pt's back to experiencing jerking movement. Pt started Amantadine 100 mg week of October 24 and first week medication helped dyskinesia. [phone] 09/13/23 FUJose w/Dr. Valente documented in this encounterFort Hamilton Hospital05-30-2024 Note* Addendum Note - Dulce Melgar RN - 11/08/2023 2:48 PM EDTAddended by: DULCE MELGAR on: 11/08/2023 02:48 PM Modules accepted: Orders [facility]05-30-[facility] Telephone encounter Note* Telephone Encounter - Dulce Melgar RN - 11/08/2023 2:44 PM EDT Spoke with Jaimee. Instructed her to increase the Amantadine to 100mg BID (to be taken with the first 2 daily doses of Sinemet). Jaimee verbalized understanding and is in agreement with POC. [facility]05-30-[facility] Telephone encounter Note* Telephone Encounter - David Valente MD - 11/08/2023 2:34 PM EDT Ok, if no side effects can she please increase to 100mg in morning and 100mg at noon? I will updatethe prescription. [facility]05-30-20[facility] Telephone encounter Note* Telephone Encounter - Dulce Melgar RN - 11/08/2023 12:53 PM EDT Spoke with Jaimee. Reports that pt is experiencing right sided dyskinesia (arm/shoulder). Pt has been taking 100mg Amantadine daily. She initially had relief from the dyskinesia but now they have returned. [facility]-30-[facility] Telephone encounter Note* Telephone Encounter - Leonora Cisneros - 11/08/2023 11:52 AM EDT Jaimee (pt' granddaughter) called to report this week pt's back to experiencing jerking movement. Pt started Amantadine 100 mg week of October 24 and first week medication helped dyskinesia. [phone] 09/13/23 DARRYL w/Dr. Valente [facility]05-08-2024 NoteHNO ID: [id number] Author: HIRAL ORTEGA APRN.FIELD ASSISTANT Service: ? Author Type: Nurse Practitioner Type: Progress Notes Filed: 10/17/2023 17:38 Note Text: [facility] - FOLLOW UP EVALUATION - TELEPHONE VISIT Md Kavon Sams (Inactive) No address on file Dear Md Kavon Sams (Inactive): I had the pleasure of seeing Ms. Land for follow-up today. As you know she [...] visit. Questionnaires: Assessment and Plan: Assessment Ms. Land is a right-handed 78 year old female [...] 100 mg 1 Level of service : 34972 (20-29 min). Time spent 25 min on [...] hesitate to call with any questions. Sincerely, Hiral Ortega APRN.[facility]05-08-2024 Note* Addendum Note - Hiral Ortega APRN.CNP - 10/17/2023 5:29 PM EDTAddended by: HIRAL ORTEGA on: 10/17/2023 05:29 PM Modules accepted: Orders [facility]05-08-2024 History of Present illness Narrative* Hiral Ortega APRN.CNP - 10/17/2023 5:29 PM EDT [facility] - FOLLOW UP EVALUATION - TELEPHONE VISIT Md Kavon Sams (Inactive) No address on file Dear Md Kavon Sams (Inactive): I had the pleasure of seeing Ms. Land for follow-up today. As you know she [...] visit. Questionnaires: Assessment and Plan: Assessment Ms. Land is a right-handed 78 year old female [...] 100 mg 1 Level of service : 33753 (20-29 min). Time spent 25 min on [...] hesitate to call with any questions. Sincerely, Hiral Ortega APRN.HUGH documented in this encounterFort Hamilton Hospital05-08-2024 Miscellaneous Notes* Addendum Note - Hiral Ortega APRN.CNP - 10/17/2023 5:29 PM EDTAddended by: HIRAL ORTEGA on: 10/17/2023 05:29 PM Modules accepted: Orders * Telephone Encounter - David Valente MD - 10/17/2023 9:43 AM EDT Dear Hiral, If she lives alone, I'd prefer the zonisamide. If she lives with someone who can monitor for the possible cognitive side effects of amantadine, I'd prefer amantadine. Thanks! -David * Telephone Encounter - Cooper Jin - 10/09/2023 11:39 AM EDT Patients daughter calling to say there was medication discussed during last OV for dyskinesia. Theywant to know what it was and if it can be prescribed because she's still having this issue. Kathie Calvillo (Daughter) [phone] (Home Phone) documented in this encounterFort Hamilton Hospital05-08-2024 Telephone encounter Note * Telephone Encounter - Dulce Melgar RN - 10/17/2023 11:15 AM EDT Spoke with pt. Informed her that the MRI of the spine showed arthritis-related degenerative changesto the spine, but not serious. She is agreeable to discussing in more detail at next office visit. [facility]05-08-[facility] Miscellaneous Notes* Telephone Encounter - Dulce [...] show her the images then. Thanks, -David * Telephone Encounter - Gabbi Ennis - 10/17/2023 10:15 AM EDT Judith phoned for results of MRI done on 10/06. She does not use [facility] and would like a return call. [phone] documented in this encounterFort Hamilton Hospital05-08-2024 Telephone encounter Note * Telephone Encounter - David Valente MD - 10/17/2023 10:25 AM EDT Dear Team, Can we please let her know that the MRI of the spine showed arthritis-related degenerative changes to the spine, but not serious. We can discuss at her next in person visit and show her the images then. Thanks, -David [facility]05-08-2024 Telephone encounter Note* Telephone Encounter - Gabbi Ennis - 10/17/2023 10:15 AM EDT Judith phoned for results of MRI done on 10/06. She does not use [facility] and would like a return call. [phone] [facility]05-08-2024 Telephone encounter Note* Telephone Encounter - David Valente MD - 10/17/2023 9:43 AM EDT Dear Hiral, If she lives alone, I'd prefer the zonisamide. If she lives with someone who can monitor for the possible cognitive side effects of amantadine, I'd prefer amantadine. Thanks! -David [facility]04-30-2024 Telephone encounter Note* Telephone Encounter - Cooper Jin - 10/09/2023 11:39 AM EDT Patients daughter calling to say there was medication discussed during last OV for dyskinesia. Theywant to know what it was and if it can be prescribed because she's still having this issue. Kathie Calvillo (Daughter) [phone] (Home Phone) [facility]04-28-2024 History of Present illness Narrative* Mya Jennings RT(R) - 10/07/2023 11:40 AM EDT Radiology Service Progress Note PATIENT NAME: Judith Land DATE OF SERVICE: October 07, 2023 TIME: [...] PATIENT PRESENTS WITH AN IMPLANTABLE OR ATTACHED PROFESSIONAL NURSING ASSISTANT: No RADIOLOGY DEPARTMENT: MR; Exam(s) Completed: Spine: Cervical spine, Thoracic spine, and Lumbar spine PERIPHERAL IV DATA: Not applicable SIGNED BY: RT Alec(R) October 07, 2023 5:53 PM documented in this encounterFort Hamilton Hospital04-28-2024 NoteHNO ID: [id number] Author: MYA JENNINGS RT(R) Service: Radiology Author Type: Technologist Type: Progress Notes Filed: 10/07/2023 17:54 Note Text: Radiology Service Progress Note PATIENT NAME: Judith Land DATE OF SERVICE: October 07, 2023 TIME: [...] PATIENT PRESENTS WITH AN IMPLANTABLE OR ATTACHED PROFESSIONAL NURSING ASSISTANT: No RADIOLOGY DEPARTMENT: MR; Exam(s) Completed: Spine: Cervical spine, Thoracic spine, and Lumbar spine PERIPHERAL IV DATA: Not applicable SIGNED BY: RT Alec(R) October 07, 2023 5:53 [facility]04-17-2024 NoteSubjective Patient ID: Judith Land is a 78 y.o. female who presents for Post-op (Judith is here today for a post op visit for an incisional hernia, s/p 09/17/23 [facility] incisional hernia repair. ). HPI Ms. Land is a 78 year old female presenting [...] content normal. Judgment: Judgment normal. Assessment/Plan Ms. Land is a 78 year old female presenting [...] up, unless patient desires Gamaliel Jarvis, MS3 [facility] 09/26/23[facility]04-17-2024 NoteSubjective Patient ID: Judith Land is a 78 y.o. female who presents [...] the past 36 hour(s)). No follow-ups on file.[facility]04-09-2024 Note09/18/23 1216 Home Oxygen Therapy Evaluation Pulse Oximetry on room air at Rest 88 Pulse Ox on O2 with nasal cannula while at rest 93 (on 3lpm via nasal cannula) Pulse Ox on O2 with nasal cannula while walking 92 (on 3lpm via nasal cannula while walking) Patient Qualification for home oxygen Qualifies $ Pulse Oximetry Multiple (home oxygen eval)[facility]04-09-2024 Note Attestation signed by Verena Hutson MD at 09/20/2023 10:36 AM Attending Physician Statement I have discussed the case, including pertinent history and exam findings with Dr. Serrano, surgical rn and have personally seen the patient. I agree with the assessment, plan and orders as documented. [phone] pager [phone] phone [facility] General Surgery DAILY PROGRESS NOTE Subjective Overnight [...] hypertrophy with repolarization abnormality ( Sokolow-Miguel , [place] product ) Abnormal ECG No previous ECGs available Confirmed by Regis BALLARD, AZEEM Ervin ([id number]) on 09/18/2023 9:49:44 AM Assessment/Plan Judith Land is a 78 y.o. female with PMH [...] Resident, PGY-3 I can be reached via [employer] [id number]-[id number]04-09-2024 NotePhysical Therapy Physical Therapy Evaluation Patient Name: Judith Land : 1945 Today's Date: 09/18/2023 HX: 78 [...] Level of Function Prior Function Level of [place]: Independent with ADLs and functional transfers, Needs assistance with homemaking Prior Functional Mobility: Independent with rolling walker Receives Help From: Family ADL Assistance: Independent (assist for socks) Homemaking Assistance: Needs assistance Driving: Total Prior Function Comments: Currently getting [employer] therapies in [place]: DRY JANITOR/OT/PT Vision Basic Assessment Vision - Basic Assessment [...] Assistance: Distant supervision Static (more content not included)...[facility] 09-18-2023 NoteOccupational Therapy Occupational Therapy Evaluation Patient Name: Judith Land : 1945 Today's Date: 09/18/2023 Time In: 946 Time Out: 1003 Judith Land is a 78 y.o. female who presents [...] Level of Function Prior Function Level of [place]: Independent with ADLs and functional transfers, Needs [...] Eating meals?: None (Independent) Total Score OT [facility]: 21 Assessment/Plan OT Assessment OT Impairments: Decreased [...] Occupational Therapy) Active Probl (more content not included)...[facility] 09-18-2023 Note09/18/23 1001 Admission Assessment Questions Verify [...] Discharge? No Does the patient have a caser assigned to them through their insurance? [...] able to send link and activate MyChart? YesUnVan [facility]ert [facility]04-[facility]Un[facility] General Surgery DAILY PROGRESS NOTE [...] hypertrophy with repolarization abnormality ( Sokolow-Miguel , [place] product ) Abnormal ECG No previous ECGs available Assessment/Plan Judith Land is a 78 y.o. female with PMH [...] David Conner MS3 General Surgery Resident, PGY- [phone] I can be reached via [employer] [id number]04-08-2024 NotePatient: Judith Land Procedure Summary Date: 09/17/23 Room / Location: [facility] OPERATING ROOM / [facility] Operating Room Anesthesia Start: 1039 Anesthesia Stop: 1436 Procedure: DAVINCI INCISIONAL HERNIA REPAIR WITH MESH (Abdomen) Diagnosis: Incisional hernia, without obstruction or gangrene (Incisional hernia, without obstruction or gangrene [K43.2]) Surgeons: Verena Hutson MD Responsible Provider: Jon Sunshine MD Anesthesia [...] Patient slow to emerge. No notable events documented.[facility]04-08-2024 Note Patient: Judith Land Procedure Summary Date: 09/17/23 Room / Location: [facility] OPERATING ROOM 13 / [facility] Operating Room Anesthesia Start: 1039 Anesthesia Stop: Procedure: DAVINCI INCISIONAL HERNIA REPAIR WITH MESH (Abdomen) Diagnosis: Incisional hernia, without obstruction or gangrene (Incisional hernia, without obstruction or gangrene [K43.2]) Surgeons: Verena Hutson MD Responsible Provider: Jon Sunshine MD Anesthesia Type: general ASA Status: 3 Anesthesia Post Transport Note Transport to: PACU O2 Route: T-piece Oxygen Flow (L/min): 10 Patient Monitor: direct observation Transport: uneventful Patient condition is: stableCommunity [facility] Center04-08-2024 Note Airway Date/Time: 09/17/2023 10:53 AM Urgency: elective General Information and Staff Patient location during procedure: OR Anesthesiologist: Jon Sunshine MD Resident/RELIABILITY TECHNOLOGIST/CAA: ABDIFATAH Patton Performed: resident/RELIABILITY TECHNOLOGIST/CAA Indications and Patient Condition Indications for airway [...] approach: 1 Number of other approaches attempted: 0[facility] 09-17-2023 NotePatient: Judith Land Procedure Information Date/Time: 09/17/23 1100 Procedure: REPAIR, HERNIA, INCISIONAL, DAVINCI - DaVinci Location: [facility] OPERATING ROOM 13 / [facility] Operating Room Surgeons: Verena Hutson MD Relevant Problems Cardio (+) Hypertension GI [...] products. Plan discussed with CAA. Additional Equipment RequestsCommunity Regional Medical Center04-04-2024 Instructions* Patient Instructions* David Valente MD - [...] > left sensory loss. Continue PT, OT, DRY JANITOR Follow up in 1 month with BRU[facility]. Patient's perception of importance for healthcare provider to let them know of research trials for which they may be eligible? Not at all important Return at or around: 10/13/23 If there are any concerns before your next visit, please call or you can send a message through [employer]. You can also now schedule and select appointments through [employer]. David Valente MD documented in this encounterFort Hamilton Hospital04-04-2024 History of Present illness Narrative* David Valente MD - 09/13/2023 9:30 AM EDT [facility] - NEW PATIENT EVALUATION thank you for referring Ms. Land to our clinic today. As you know [...] not have actually happened. Started maybe in 2023. Hallucinations: denies She has MRI report with [...] Row Office Visit from 09/13/2023 in [facility] Physical [facility] T Score 39.8 Global [...] Suprapatellar present. Crossed adductor absent. Coordination Right: Tkrx-no-rgfq normal.Left: Ewsj-fs-nona normal. See UPDRS. Gait Casual gait: Hesitant [...] Filed Total Assessment and Plan: Assessment Ms. Land is a right-handed 78 year old year [...] for MRI claustrophobia planned (MRIs ordered at [facility], with radiology to administer anxiolytics) Neuropathy labwork In future, consider EMG right leg to work up right > left sensory loss. Continue PT, OT, DRY JANITOR Follow up in 1 month with [facility]. Patient's perception of importance for healthcare provider to let them know of research trials for which they may be eligible? Not at all important Updated Parkinson's Medication Schedule: Medications breakfast lunch bedtime ropinerole 0.25mg 1 azilect 1mg 1 sinemet 25/100mg 1 1 1 Level of service : 62454 + 1 units 30075 ( > 75 min, [id number] for each 15 min > 60 min). Time spent 80 min on the day of service, which included preparing to see the patient, gvqb-up-hqob patient care, completing clinical documentation, obtaining and/or [...] Sincerely, David Valente MD [facility] NoteHNO ID: [id number] Author: DAVID VALENTE MD Service: ? Author Type: Physician Type: Progress Notes Filed: 09/13/2023 21:36 Note Text: [facility] - NEW PATIENT EVALUATION thank you for referring Ms. Land to our clinic today. As you know [...] Row Office Visit from 09/13/2023 in Neurological [facility] Global Physical Health T Score 39.8 Global [...] and 5pm.. rOPINIRole (REQUIP (more content not included)...[facility] 09-12-[address] Haresh MACIAS to refill the Pantoprazole.[facility]03-18-2024 NotePre op Cardiovascular risk stratification RCRI: 1 points Class II Risk 6.0 % 30-day risk of , [place], or cardiac arrest From a cardiology perspective pt may proceed with planned hernia surgery, she is low risk for a moderate- high risk abdominal surgery. Please monitor hemodynamics and prevent any major fluid shifts please. Cooper Schultz [facility] Cardiology Available 7a-5pm via [facility] Chat Pager [phone] 05/2022 Abnormal stress with EKG changes but no perfusion defects as per report. No cardiac complaints TTE [facility] NoteSubjective Patient ID: Judith Land is a 78 y.o. female who presents [...] time. (ESOPHAGOGASTRODUODENOSCOPY) Operative Note Date: 08/13/2023 Location: [facility] OR Name: Judith Land, : 1945, Diagnosis Pre-op Diagnosis * Hiatal hernia [K44.9] Post-op Diagnosis * Chronic gastric ulcer without hemorrhage and without perforation [K25.7] Procedures EGD (ESOPHAGOGASTRODUODENOSCOPY) [address] - [place] ESOPHAGOGASTRODUODENOSCOPY [facility] * Verena Hutson - Primary Procedure Summary Anesthesia: Monitor Anesthesia Care ASA: III Estimated Blood Loss: Minimal Total IV Fluids: 500 mL Drains: * None in log * Staff: Room Service Server: Jian Kat RN Scrub Person: Eva Zambrano CST Indications: Jduith Land is an 78 y.o. female who is [...] sequential compression devices EGD NOTE Patient: Judith Land : 1945 Facility: [facility] Referring/PCP: Kavon Sams MD Procedure: Esophagogastroduodenoscopy --diagnostic Date: 08/13/2023 Endoscopist: Verena Hutson MD, MD Preoperative Diagnosis: 1. Hiatal hernia [...] 1. -Follow up with me. 2. -PPIs [phone] pager [phone] Assessment/Plan Incisional hernia Gastric ulcer Robotic incisional hernia repair with mesh Cardiac clearance PPIs No diagnosis found. No orders of the defined types were placed in this encounter. No results found for this or any previous visit (from the past 36 hour(s)). No follow-ups on file.[facility]02-05-2024 Hospital Discharge instructions Patient Education 07/16/2023 15:44:31 [...] Consider working with a physical therapist or human resources trainer who can develop an exercise plan to help you gain muscle strength. General instructions Take pxga-rso-jcphama and prescription medicines only as told by [...] provider. Document Revised: 04/30/2022 Document Reviewed: 04/30/2022 [employer] ASA Patient Education 2022 [employer]. Follow Up Care 07/16/2023 11:34:57 With:Kavon Sams Address: [address] [place], [place] [id number] Business (1) When:07/19/2023 15:32:04 [facility]02-05-2024 Evaluation + Plan noteExtracted from: Title:ED Note Author:Leighton Fernandes PA-C te:07/16/23 Weakness (R53.1: Weakness) Diagnostic Tests Pending * Urine Culture 07/16/23 [facility]01-13-2024 Hospital Discharge instructions Patient Education 06/23/2023 16:31:59 Weakness, Mqog-pl-Qnll Weakness Weakness is a lack of strength. [...] about working with a physical therapist or human resources trainer to help you get stronger. General instructions Take hmie-nly-datlhpb and prescription medicines only as told by [...] provider. Document Revised: 04/30/2022 Document Reviewed: 04/30/2022 [employer] Patient Education 2022 [employer]. 06/23/2023 16:31:55 Urinary Tract Infection, Adult Urinary [...] Treatment for this condition includes: Antibiotic medicine. Njwa-nml-ualgyzj medicines to treat discomfort. Drinking enough water [...] Follow these instructions at home: Medicines Take rymo-pih-rijtxzn and prescription medicines only as told by [...] provider. Document Revised: 01/07/2021 Document Reviewed: 01/07/2021 [employer] Patient Education 2022 [employer]. Follow Up Care 06/23/2023 01:35:45 With:Dani HERRERA, JOANNA Kauffman Address: [address] [address] When:1 to 2 weeks [facility]01-13-2024 Evaluation + Plan noteExtracted from: Title:Consult Note [...] but reportedly she has MRI images in [place] within the past few months that did [...] had an MRI in May at [facility]. Consult Neurology PT Eval ordered [...] mention of fluctuations) Sinemet Addendum by Haile PATEL MD on June 23, 2023 15:54:36 EST [...] Blood Culture Charcoal CBC w/ Auto Diff [place] Stroke Scale Communication Order Physician to Nursing Continuous Pulse Oximetry CT Head or Brain w/o Contrast ECG 12 Lead Adult ED Cardiac Monitoring ED Physician consult Hospitalist for continued care eGFR Hepatic Function Panel Lactic Acid Magnesium Level NPO Diet Oxygen Therapy PT & PTT Rapid COVID Antigen ([facility]) Routine Capillary Glucose POC Saline Lock Insert Stroke Quality Measures Troponin 0 Hr. Troponin 3 Hr. Troponin 6 Hr. Troponin 9 Hr. TSH With T4fr Reflex UA With Cult Reflex Urine Culture Vital Signs XR Chest Single View Diagnostic Tests Pending * Blood Culture Charcoal 06/23/23 * Blood Culture Charcoal 06/23/23 * Urine Culture 06/23/23 [facility] noteNo assessment information available [facility] Work Phone: Evaluation note* Diagnosis Hyperreflexia- Primary [...] changes Memory loss [facility] Diagnosis Spinal stenosis of cervical region Spinal stenosis in cervical region [facility] Diagnosis Abnormal posture [facility] Diagnosis Spinal stenosis of lumbar region with neurogenic claudication Spinal stenosis, lumbar region, with neurogenic claudication [facility] Diagnosis Parkinson's disease with dyskinesia and fluctuating manifestations (HCC)- [facility] Diagnosis Parkinson's disease with dyskinesia and fluctuating manifestations (HCC)- Primary [facility] Diagnosis Parkinson's disease with dyskinesia and fluctuating manifestations (HCC) [facility] Diagnosis Parkinson's disease with dyskinesia and fluctuating manifestations (HCC) [facility] Diagnosis Parkinson's disease with dyskinesia and fluctuating manifestations (HCC)- Primary [facility]* Diagnosis Parkinson's disease with dyskinesia and fluctuating manifestations (HCC)- Primary [facility] Parkinson's disease with dyskinesia and fluctuating manifestations (HCC) [facility] Diagnosis Parkinson's disease, unspecified whether [...] of cerebral infarction documented in [facility] encounter [facility]* Diagnosis Parkinson's disease, unspecified whether dyskinesia present, unspecified whether manifestations fluctuate (CMS/HCC)- Primary RLS (restless legs syndrome) Restless legs syndrome (RLS) Cerebral infarction, chronic Transient ischemic attack (TIA), and cerebral infarction without residual deficits Other chronic pain Carpal tunnel syndrome of right wrist documented in this encounter [facility]* Diagnosis Parkinson's disease with dyskinesia and fluctuating manifestations (HCC)- Primary Anxiety disorder due to known physiological condition Anxiety state, unspecified Hypophonia with hoarseness [facility] Diagnosis Right wrist pain- Primary Pain in joint, forearm Closed Colles' fracture of right radius, initial encounter Other closed fracture of distal end of right ulna, initial encounter Parkinson's disease with dyskinesia, unspecified whether manifestations fluctuate (CMS/HCC) Underweight documented in this encounter [facility]* Diagnosis Right wrist pain- Primary Pain in joint, forearm Closed Colles' fracture of right radius with routine healing Other closed fracture of distal end of right ulna with routine healing, subsequent encounter documented in this encounter [facility]* Diagnosis Onset Date Resolution Status Admit Date Acute UTI acute August 20 10:48pm Altered mental status acute Aug 10:48pm [facility] Work Phone: Evaluation note* Diagnosis Right wrist pain- Primary Pain in joint, forearm Pelvic pain Other closed intra-articular fracture of distal end of right radius with routine healing, subsequent encounter Closed fracture of superior ramus of left pubis, initial encounter ([facility]/HCC) documented in this encounter [facility]* Diagnosis Closed fracture of superior ramus of left pubis, initial encounter (CMS/HCC)- Primary documented in this encounter [facility]* Diagnosis Closed fracture of superior ramus of left pubis, initial encounter (CMS/HCC)- Primary Other closed intra-articular fracture of distal end of right radius with routine healing, subsequent encounter documented in this encounter [facility] Healthcare[facility] course Narrative No data available for this section [facility] No data available for this section [facility] Summary Purpose Family History Relationship Condition Age at Onset Recorded Date/T dorys mother Cerebrovascular accident (CVA) Unknown father Malignant neoplasm Unknown son Malignant neoplasm Unknown Advance Directives Advance Directive Response Recorded Date/ Time Advance Directives No November 12 1:56pm Advance Directive Response Recorded Date/ Time Advance Directives No November 12 2:56pm Advance Directive Response Recorded Date/ Time Advance Directives No September 02, 025 10:15pm Chief Complaint and Reason for Visit Chief Complaint G24.9 R27.0 Chief Complaint Admit Date Unknown July 24, 2024 2:21pm Chief Complaint Admit Date Unknown July 24, 2024 2:21pm Unknown August 06, 2024 12:15pm Chief Complaint Admit Date Unknown July 24, 2024 2:21pm Unknown August 06, 2024 12:15pm Unknown August 13, 2024 3:20 pm Chief Complaint Admit Date Unknown July 24, 2024 2:21pm Unknown August 06, 2024 12:15pm Unknown August 13, 2024 3:20 pm uti symptoms August 20, 2024 10: 48pm Reason for Visit Admit Date Acute UTI August 20, 2024 10: 48pm Altered mental status August 20, 2024 1 0:48pm Chief Complaint Admit Date Unknown July 24, 2024 2:21pm Unknown August 06, 2024 12:15pm Unknown August 13, 2024 3:20 pm uti symptoms August 20, 2024 10: 48pm uti symptoms August 22, 2024 5:3 4pm Reason for Visit Admit Date Acute UTI August 20, 2024 10: 48pm ANTONIO (acute kidney injury) August 20 10:48pm Altered mental status August 20, 2024 1 0:48pm Anxiety August 20, 2024 10: 48pm HTN (hypertension) August 20, 2024 10: 48pm Hypercalcemia August 20, 2024 10: 48pm Metabolic encephalopathy August 20 10:48pm Parkinsons disease August 20, 2024 10: 48pm UTI (urinary tract infection) August 10:48pm Chief Complaint Admit Date Unknown July 24, 2024 2:21pm Unknown August 06, 2024 12:15pm Unknown August 13, 2024 3:20 pm uti symptoms August 20, 2024 10: 48pm uti symptoms August 22, 2024 5:3 4pm Parkinsons August 25, 2024 3:4 6pm Parkinsons August 26, 2024 10: 24am Parkinsons September 02, 2024 10: 08pm Parkinsons September 03, 2024 11: 47am Reason for Visit Admit Date Acute UTI August 20, 2024 10: 48pm ANTONIO (acute kidney injury) August 20 10:48pm Altered mental status August 20, 2024 1 0:48pm Anxiety August 20, 2024 10: 48pm HTN (hypertension) August 20, 2024 10: 48pm Hypercalcemia August 20, 2024 10: 48pm Metabolic encephalopathy August 20 10:48pm Parkinsons disease August 20, 2024 10: 48pm UTI (urinary tract infection) August 10:48pm Fracture of left superior pubic ramus [facility] 2024 3:46pm Impaired mobility and activities of alex y living August 25, 2024 3:46pm Acute UTI August 25, 2024 3:4 6pm Anxiety August 25, 2024 3:4 6pm HTN (hypertension) August 25, 2024 3:4 6pm Metabolic encephalopathy August 25 3:46pm Parkinsons disease August 25, 2024 3:4 6pm UTI (urinary tract infection) August 3:46pm Reason for Referral Specialty Diagnoses / Procedures Referred By Reyna medina Referred To Contact Diagnoses Parkinson's disease with dyskinesia and fluctuating manifestations (HCC) Procedures PROVIDER ORDERED FOLLOW UP OFFICE/OUTPATIENT [facility] 60 MINUTES Cherie Cedeno PA-C [address] [id number] Referral ID Status Reason Start Date Expiration Date Visits Requested Visits Authorized [id number] Authorized PCP Requested Referral 02/14/2024 01/13/2025 1 1 Specialty Diagnoses / Procedures Referred By Reyna medina Referred To Contact Diagnoses Parkinson's disease, unspecified whether dyskinesia present, unspecified whether manifestations fluctuate (HCC) Procedures PROVIDER ORDERED FOLLOW UP OFFICE/OUTPATIENT NEW [facility] 60 MINUTES David Valente MD [address], [place] [address] [place] [address] Referral ID Status Reason Start Date Expiration Date Visits Requested Visits Authorized [id number] Authorized PCP Requested Referral 10/13/2023 09/12/2024 1 1 Specialty Diagnoses / Procedures Referred By Contac t Referred To Contact MR IMAGING Diagnoses Spinal stenosis of lumbar region with neurogenic claudication Procedures MRI LUMBAR SPINE WO IVCON MRI SPINAL CANAL LUMBAR W/O CONTRAST MATERIAL David Valente MD [address] [place] [address] Mr [place] [facility] Referral ID Status Reason Start Date Expiration Date Visits Requested Visits Authorized [id number] Authorized Auto-Generat ed Referral 09/13/2023 10/12/2024 1 1 Specialty Diagnoses / Procedures Referred By Contac t Referred To Contact MR IMAGING Diagnoses Abnormal posture Procedures MRI THORACIC SPINE WO IVCON MRI SPINAL CANAL THORACIC W/O CONTRAST David Andrea MD [address] [place] [address] Mr Imaging [place] [address] Referral ID Status Reason Start Date Expiration Date Visits Requested Visits Authorized [id number] Authorized Auto-Generat ed Referral 09/13/2023 10/12/2024 1 1 Specialty Diagnoses / Procedures Referred By Contac t Referred To Contact MR IMAGING Diagnoses Spinal stenosis of cervical region Procedures MRI CERVICAL SPINE WO IVCON MRI SPINAL CANAL CERVICAL W/O CONTRAST David Andrea MD [address] [place] [address] Mr Imaging [facility] Referral ID Status Reason Start Date Expiration Date Visits Requested Visits Authorized [id number] Authorized Auto-Generat ed Referral 09/13/2023 10/12/2024 1 1 Additional Source Comments INFORMATION SOURCE (unrecogn ized section and content) DATE CREATED AUTHOR 11/30/[address] [facility] DATE CREATED AUTHOR AUTHOR'S ORGANIZ ATION 10/13/2022 [facility] DATE CREATED AUTHOR AUTHOR'S ORGANIZ ATION 10/19/2023 [facility] DATE CREATED AUTHOR AUTHOR'S ORGANIZ ATION 12/02/2023 [facility] DATE CREATED AUTHOR AUTHOR'S ORGANIZ ATION 07/28/2024 [facility] DATE CREATED AUTHOR AUTHOR'S ORGANIZ ATION 07/29/2024 [facility] DATE CREATED AUTHOR AUTHOR'S ORGANIZ ATION 08/04/2024 [facility] DATE CREATED AUTHOR AUTHOR'S ORGANIZ ATION 08/06/2024 [facility] DATE CREATED AUTHOR AUTHOR'S ORGANIZ ATION 08/15/2024 [facility] DATE CREATED AUTHOR AUTHOR'S ORGANIZ ATION 08/16/2024 [facility] DATE CREATED AUTHOR AUTHOR'S ORGANIZ ATION 10/02/2024 [facility] DATE CREATED AUTHOR AUTHOR'S ORGANIZ ATION 10/04/2024 [facility] Care Teams (unrecognized sec tion and content) Team Status: Active Member Role Status Dates Kavon Sams MD Primary Care Provider Active Team Status: Inactive Member Role Status Dates Kavon Sams MD Primary Care Provider Active Cathie Gill NP-C Attending Provider Active Iron Pourer Relationship Specialty Start Date End Date Kavon Sams Md PCP - General Family Medicine 03/23/20 Kavon Sams MD Physician Family Medicine 02/20/20 Iron Pourer Relationship Specialty Start Date End Date Kavon Sams Md PCP - General Family Medicine 03/23/20 Kavon Sams MD Physician Family Medicine 02/20/20 Iron Pourer Relationship Specialty Start Date End Date Kavon Sams Md PCP - General Family Medicine 03/23/20 Kavon Sams MD Physician Family Medicine 02/20/20 Iron Pourer Relationship Specialty Start Date End Date Kavon Sams Md PCP - General Family Medicine 03/23/20 Kavon Sams MD Physician Family Medicine 02/20/20 Iron Pourer Relationship Specialty Start Date End Date Kavon Sams Md PCP - General Family Medicine 03/23/20 Kavon Sams MD Physician Family Medicine 02/20/20 Iron Pourer Relationship Specialty Start Date End Date Kavon Sams Md PCP - General Family Medicine 03/23/20 Kavon Sams MD Physician Family Medicine 02/20/20 Iron Pourer Relationship Specialty Start Date End Date Kavon Sams Md PCP - General Family Medicine 03/23/20 Kavon Sams MD Physician Family Medicine 02/20/20 Iron Pourer Relationship Specialty Start Date End Date Kavon Sams Md PCP - General Family Medicine 03/23/20 Kavon Sams MD Physician Family Medicine 02/20/20 Iron Pourer Relationship Specialty Start Date End Date Kavon Sams Md PCP - General Family Medicine 03/23/20 Kavon Sams MD Physician Family Medicine 02/20/20 Iron Pourer Relationship Specialty Start Date End Date Kavon Sams Md PCP - General Family Medicine 03/23/20 Kavon Sams MD Physician Family Medicine 02/20/20 Iron Pourer Relationship Specialty Start Date End Date Kavon Sams Md PCP - General Family Medicine 03/23/20 Kavon Sams MD Physician Family Medicine 02/20/20 Iron Pourer Relationship Specialty Start Date End Date Kavon Sams MD [address] [place] [address] PCP - General Family Medicine 08/15/23 Iron Pourer Relationship Specialty Start Date End Date Kavon Sams MD [address] [place] [address] PCP - General Family Medicine 08/15/23 Iron Pourer Relationship Specialty Start Date End Date Kavon Sams MD [address] [place] [address] PCP - General Family Medicine 08/15/23 Iron Pourer Relationship Specialty Start Date End Date Kavon Sams Md PCP - General Family Medicine 03/23/20 Kavon Sams MD Physician Family Medicine 02/20/20 Team Status: Inactive Member Role Status Dates Kavon Sams MD Attending Provider Active Sta rt: July 24, 2024 End: July 24, 2024 Iron Pourer Relationship Specialty Start Date End Date Kavon Sams MD [address] [place] [address] PCP - General Family Medicine 08/15/23 Iron Pourer Relationship Specialty Start Date End Date Kavon Sams Md PCP - General Family Medicine 03/23/20 Kavon Sams MD Physician Family Medicine 02/20/20 Iron Pourer Relationship Specialty Start Date End Date Kavon Sams MD [address] [place] [address] PCP - General Family Medicine 08/15/23 Team Status: Inactive Member Role Status Dates Meghan Ramachandran DO Attending Provider Active Sta rt: August 06, 2024 End: August 06, 2024 Iron Pourer Relationship Specialty Start Date End Date Kavon Sams MD [address] [place] [address] PCP - General Family Medicine 08/15/23 Team Status: Inactive Member Role Status Dates Kavon Sams MD Attending Provider Active Sta rt: August 13, 2024 End: August 13, 2024 Team Status: Active Member Role Status Dates Damaso Charlton DO Emergency Provider Active St art: August 20, 2024 Kavon Sams MD Primary Care Provider Active Start: August 20, 2024 Lauro Garvey MD Admit Provider, Attending Provider Active Start: August 20, 2024 Team Status: Inactive Member Role Status Dates Damaso Charlton DO Emergency Provider Active St art: August 20, 2024 End: August 25, 2024 Kavon Sams MD Primary Care Provider Active Start: August 20, 2024 End: August 25, 2024 Lauro Garvey MD Admit Provider Active S tart: August 20, 2024 End: August 25, 2024 Mariajose Alfred MD Attending Provider Active Start: August 20, 2024 End: August 25, 2024 Mago Quintanilla MD Other Provider Active Start: [facility] 2024 End: August 25, 2024 Ramsey Monroe MD Other Provider Active Start: Letha silva 2024 End: August 25, 2024 Didi Navarro APRN Other Provider Active St art: August 20, 2024 End: August 25, 2024 Dani Bah Jr, DO Other Provider Active S tart: August 20, 2024 End: August 25, 2024 Pa Neil MD Other Provider Active Start: August 20, 2024 End: August 25, 2024 Tony Fuentes DO Other Provider Active Start: August 20, 2024 End: August 25, 2024 Team Status: Active Member Role Status Dates Damaso Charlton , Emergency Provider Active St art: August 22, 2024 Kavon Sams MD Primary Care Provider Active Start: August 22, 2024 Lauro Garvey MD Admit Provider Active S tart: August 22, 2024 Mariajose Alfred MD Other Provider Active Sta rt: August 22, 2024 Mago Quintanilla MD Other Provider Active Start: [facility] 2024 Ramsey Monroe MD Attending Provider, Other Provider Active Start: August 22, 2024 Didi Navarro APRN Other Provider Active St art: August 22, 2024 Dani Bah , DO Other Provider Active S tart: August 22, 2024 Pa Neil MD Other Provider Active Start: August 22, 2024 Tony Fuentes DO Other Provider Active Start: August 22, 2024 Team Status: Inactive Member Role Status Dates Kavon Sams MD Primary Care Provider Active Start: August 25, 2024 End: September 05, 2024 Pa Neil MD Admit Provid er, Attending Provider Active Start: August 25, 2024 End: September 05, 2024 Gloria House RN Other Provider Active Star t: August 25, 2024 End: September 05, 2024 Andra Uriostegui , CECY Other Provider Active Start : August 25, 2024 End: September 05, 2024 Kimberlyn Prasad , CECY Other Provider Active Star t: August 25, 2024 End: September 05, 2024 Tequila Santamaria , CECY Other Provider Active Start: [facility] 2024 End: September 05, 2024 Yvrose Johnson , CECY Other Provider Active Start: [facility] 2024 End: September 05, 2024 Trish Christensen MD Other Provider Active Start: August 25, 2024 End: September 05, 2024 Barney Quan DO Other Provider Active Start : August 25, 2024 End: September 05, 2024 Clyde Avila MD Other Provider Active Start : August 25, 2024 End: September 05, 2024 Connor Dumont DO Other Provider Active Start: August 25, 2024 End: September 05, 2024 Evelio Smith MD Other Provider Active Start: August 25, 2024 End: September 05, 2024 Faith Mccoy MD Other Provider Active Start : August 25, 2024 End: September 05, 2024 Yulissa Shelby DO Other Provider Active St art: August 25, 2024 End: September 05, 2024 Ludwin Cuadra MD Other Provider Active Start: [facility] 2024 End: September 05, 2024 Baylee Ho APRN Other Provider Active Start: August 25, 2024 End: September 05, 2024 Carie Blunt MD Other Provider Active Start: August 25, 2024 End: September 05, 2024 Easton Galeano MD Other Provider Active Start: [facility] 2024 End: September 05, 2024 Yanique Echevarria MD Other Provider Active Start: August 25, 2024 End: September 05, 2024 Bobby Luz MD Other Provider Active Start: August 25, 2024 End: September 05, 2024 Yulissa Lemon DO Other Provider Active Start: August 25, 2024 End: September 05, 2024 Paxton Sparks MD Other Provider Active Start: [facility] 2024 End: September 05, 2024 Ulysses Valenzuela MD Other Provider Active Start: [facility] 2024 End: September 05, 2024 DIXIE Harman Other Provider Active St art: August 25, 2024 End: September 05, 2024 Sofia Warren APRN Other Provider Active Star t: August 25, 2024 End: September 05, 2024 Ton Conti MD Other Provider Active Start: August 25, 2024 End: September 05, 2024 Jordan Ortega MD Other Provider Active Start: [facility] 2024 End: September 05, 2024 Abner Lazar MD Other Provider Active Start: [facility] 2024 End: September 05, 2024 Nikko Faria MD Other Provider Active Star t: August 25, 2024 End: September 05, 2024 Jair Mejia MD Other Provider Active Start: [facility] 2024 End: September 05, 2024 Carolina Mccoy DO Other Provider Active Start: [facility] 2024 End: September 05, 2024 Ty Garrido DO Other Provider Active Start : August 25, 2024 End: September 05, 2024 Katarzyna Major APRN Other Provider Active Start: August 25, 2024 End: September 05, 2024 Andrew Grace DO Other Provider Active Start: August 25, 2024 End: September 05, 2024 Mariajose Alfred MD Other Provider Active Sta rt: August 25, 2024 End: September 05, 2024 Ebony Scott APRN Other Provider Active Start : August 25, 2024 End: September 05, 2024 Sameera Diaz APRN Other Provider Active St art: August 25, 2024 End: September 05, 2024 Haile Patel MD Other Provider Active Start: [facility] 2024 End: September 05, 2024 Lauro Garvey MD Other Provider Active S tart: August 25, 2024 End: September 05, 2024 Niranjan Ambrosio DO Other Provider Active Star t: August 25, 2024 End: September 05, 2024 Aristeo Kong DO Other Provider Active Start: August 25, 2024 End: September 05, 2024 Leonardo Lazar MD Other Provider Active Start: August 25, 2024 End: September 05, 2024 Addy Johns MD Other Provider Active Start: August 25, 2024 End: September 05, 2024 Haydee Cornejo APRN Other Provider Active Star t: August 25, 2024 End: September 05, 2024 Joe Coleman MD Other Provider Active Start: [facility] 2024 End: September 05, 2024 Awais Shafer MD Other Provider Active Start: [facility] 2024 End: September 05, 2024 Ramsey Dillon MD Other Provider Active Start: August 25, 2024 End: September 05, 2024 Ludwin Barry MD Other Provider Active Start : August 25, 2024 End: September 05, 2024 Bogdan Harris MD Other Provider Active Start: [facility] 2024 End: September 05, 2024 Anaid Borrero APRN Other Provider Active Sta rt: August 25, 2024 End: September 05, 2024 Gi Liz APRN Other Provider Active Start: August 25, 2024 End: September 05, 2024 Lanny Pisano RN Other Provider Active Start: [facility] 2024 End: September 05, 2024 Alyson [place] Other Provider Active Start: August 25, 2024 End: September 05, 2024 Jose R Lewis , Other Provider Active S tart: August 25, 2024 End: September 05, 2024 Christina Vasquez DO Other Provider Active Start: August 25, 2024 End: September 05, 2024 Ramiro Louise MD Other Provider Active Start : August 25, 2024 End: September 05, 2024 Baljeet Rao DO Other Provider Active Start: August 25, 2024 End: September 05, 2024 Tony Fuentes DO Other Provider Active Start: August 25, 2024 End: September 05, 2024 Haydee Farris APRN Other Provider Active St art: August 25, 2024 End: September 05, 2024 Cathie Gill NP-C Other Provider Active Sta rt: August 25, 2024 End: September 05, 2024 Shaun Jackson APRN-DIETARY SUPERVISOR-C Other Provider Active Start: August 25, 2024 End: September 05, 2024 Henrry Jon MD Other Provider Active Start: [facility] 2024 End: September 05, 2024 Naye Lawson MD Other Provider Active Star t: August 25, 2024 End: September 05, 2024 DIXEI Sanford Other Provider Active Start: August 25, 2024 End: September 05, 2024 Ashwin Carlos , Other Provider Active Start : August 25, 2024 End: September 05, 2024 Dale Alvarenga II, MD Other Provider Active S tart: August 25, 2024 End: September 05, 2024 Demarco Segal , Other Provider Active Start: August 25, 2024 End: September 05, 2024 Team Status: Active Member Role Status Dates Kavon Sams MD Primary Care Provider Active Start: August 26, 2024 Pa Neil MD Admit Provid er, Attending Provider, Other Provider Active Start: August 26, 2024 Gloria House , CECY Other Provider Active Star t: August 26, 2024 Andra Uriostegui , CECY Other Provider Active Start : August 26, 2024 Kimberlyn Prasad , CECY Other Provider Active Star t: August 26, 2024 Tequila Santamaria , CECY Other Provider Active Start: [facility] 2024 Yvrose Johnson RN Other Provider Active Start: [facility] 2024 Trish Christensen MD Other Provider Active Start: August 26, 2024 Barney Quan DO Other Provider Active Start : August 26, 2024 Clyde Avila MD Other Provider Active Start : August 26, 2024 Connor Dumont DO Other Provider Active Start: August 26, 2024 Evelio Smith MD Other Provider Active Start: August 26, 2024 Faith Mccoy MD Other Provider Active Start : August 26, 2024 Yulissa Shelby DO Other Provider Active St art: August 26, 2024 Ludwin Cuadra MD Other Provider Active Start: [facility] 2024 Baylee Ho APRN Other Provider Active Start: August 26, 2024 Carie Blunt MD Other Provider Active Start: August 26, 2024 Easton Galeano MD Other Provider Active Start: [facility] 2024 Yanique Echevarria MD Other Provider Active Start: August 26, 2024 Bobby Luz MD Other Provider Active Start: August 26, 2024 Yulissa Lemon DO Other Provider Active Start: August 26, 2024 Paxton Sparks MD Other Provider Active Start: [facility] 2024 Ulysses Valenzuela MD Other Provider Active Start: [facility] 2024 Meghana Pandya , LINING IRONER-C Other Provider Active St art: August 26, 2024 Sofia Warren APRN Other Provider Active Star t: August 26, 2024 Ton Conti MD Other Provider Active Start: August 26, 2024 Jordan Ortega MD Other Provider Active Start: [facility] 2024 Abner Lazar MD Other Provider Active Start: [facility] 2024 Nikko Faria MD Other Provider Active Star t: August 26, 2024 Jair Mejia MD Other Provider Active Start: [facility] 2024 Carolina Mccoy DO Other Provider Active Start: [facility] 2024 Ty Garrido DO Other Provider Active Start : August 26, 2024 Katarzyna Major APRN Other Provider Active Start: August 26, 2024 Andrew Grace DO Other Provider Active Start: August 26, 2024 Mariajose Alfred MD Other Provider Active Sta rt: August 26, 2024 Ebony Scott APRN Other Provider Active Start : August 26, 2024 Sameera Diaz APRN Other Provider Active St art: August 26, 2024 Haile Patel MD Other Provider Active Start: [facility] 2024 Lauro Garvey MD Other Provider Active S tart: August 26, 2024 Niranjan Ambrosio DO Other Provider Active Star t: August 26, 2024 Aristeo Kong DO Other Provider Active Start: August 26, 2024 Leonardo Lazar MD Other Provider Active Start: August 26, 2024 Addy Johns MD Other Provider Active Start: August 26 Haydee Cornejo APRN Other Provider Active Star t: August 26, 2024 Joe Coleman MD Other Provider Active Start: [facility] 2024 Awais Shafer MD Other Provider Active Start: [facility] 2024 Ramsey Dillon MD Other Provider Active Start: August 26, 2024 Ludwin Barry MD Other Provider Active Start : August 26, 2024 Bogdan Harris MD Other Provider Active Start: [facility] 2024 Anadi Borrero APRN Other Provider Active Sta rt: August 26, 2024 Gi Liz APRN Other Provider Active Start: August 26 Lanny Pisano RN Other Provider Active Start: [facility] 2024 Team Status: Active Member Role Status Dates Kavon Sams MD Primary Care Provider Active Start: September 02, 2024 Pa Neil MD Admit Provid er, Attending Provider, Other Provider Active Start: September 02, 2024 Gloria House RN Other Provider Active Star t: September 02, 2024 Andra Uriostegui , CECY Other Provider Active Start : September 02, 2024 Kimberlyn Prasad , CECY Other Provider Active Star t: September 02, 2024 Tequila Santamaria RN Other Provider Active Start: [facility] 2024 Yvrose Johnson RN Other Provider Active Start: [facility] 2024 Trish Christensen MD Other Provider Active Start: September 02, 2024 Barney Quan DO Other Provider Active Start : September 02, 2024 Clyde Avila MD Other Provider Active Start : September 02, 2024 Connor Dumont DO Other Provider Active Start: September 02, 2024 Evelio Smith MD Other Provider Active Start: September 02, 2024 Faith Mccoy MD Other Provider Active Start : September 02, 2024 Yulissa Shelby DO Other Provider Active St art: September 02, 2024 Ludwin Cuadra MD Other Provider Active Start: [facility] 2024 Baylee Ho APRN Other Provider Active Start: September 02, 2024 Carie Blunt MD Other Provider Active Start: September 02, 2024 Easton Galeano MD Other Provider Active Start: [facility] 2024 Yanique Echevarria MD Other Provider Active Start: September 02, 2024 Bobby Luz MD Other Provider Active Start: September 02, 2024 Yulissa Frings , DO Other Provider Active Start: September 02, 2024 Paxton Sparks MD Other Provider Active Start: [facility] 2024 Ulysses Valenzuela MD Other Provider Active Start: [facility] 2024 KIARA HarmanC Other Provider Active St art: September 02, 2024 Sofia Warren APRN Other Provider Active Star t: September 02, 2024 Ton Conti MD Other Provider Active Start: September 02, 2024 Jordan Ortega MD Other Provider Active Start: [facility] 2024 Abner Lazar MD Other Provider Active Start: [facility] 2024 Nikko Faria MD Other Provider Active Star t: September 02, 2024 Jair Mejia MD Other Provider Active Start: [facility] 2024 Carolina Mccoy , Other Provider Active Start: [facility] 2024 Ty Garrido , Other Provider Active Start : September 02, 2024 Katarzyna Major APRN Other Provider Active Start: September 02, 2024 Andrew Grace , Other Provider Active Start: September 02, 2024 Mariajose Alfred MD Other Provider Active Sta rt: September 02, 2024 Ebony Scott APRN Other Provider Active Start : September 02, 2024 Sameera Diaz APRN Other Provider Active St art: September 02, 2024 Haile Patel MD Other Provider Active Start: [facility] 2024 Lauro Garvey MD Other Provider Active S tart: September 02, 2024 Niranjan Ambrosio , Other Provider Active Star t: September 02, 2024 Aristeo Kong , Other Provider Active Start: September 02, 2024 Leonardo Lazar MD Other Provider Active Start: September 02, 2024 Addy Johns MD Other Provider Active Start: September 02, 2024 Haydee Cornejo APRN Other Provider Active Star t: September 02, 2024 Joe Coleman MD Other Provider Active Start: [facility] 2024 Awais Shafer MD Other Provider Active Start: [facility] 2024 Ramsey Dillon MD Other Provider Active Start: September 02, 2024 Ludwin Barry MD Other Provider Active Start : September 02, 2024 Bogdan Harris MD Other Provider Active Start: [facility] 2024 Anaid Borrero APRN Other Provider Active Sta rt: September 02, 2024 Gi Liz APRN Other Provider Active Start: September 02, 2024 Lanny Pisano , CECY Other Provider Active Start: [facility] 2024 [place] Other Provider Active Start: September 02, 2024 Jose R Lewis , PhD Other Provider Active S tart: September 02, 2024 Christina Vasquez , Other Provider Active Start: September 02, 2024 Ramiro Louise MD Other Provider Active Start : September 02, 2024 Baljeet Rao , Other Provider Active Start: September 02, 2024 Tony Fuentes DO Other Provider Active Start: September 02, 2024 Haydee Farris APRN Other Provider Active St art: September 02, 2024 Cathie Gill , LINING IRONER-C Other Provider Active Sta rt: September 02, 2024 Shaun Jackson APRN-DIETARY SUPERVISOR-C Other Provider Active Start: September 02, 2024 Team Status: Active Member Role Status Dates Kavon Sams MD Primary Care Provider Active Start: September 03, 2024 Pa Neil MD Admit Provid er, Other Provider Active Start: September 03, 2024 Gloria House , CECY Other Provider Active Star t: September 03, 2024 Andra Uriostegui , CECY Other Provider Active Start : September 03, 2024 Kimberlyn Prasad , CECY Other Provider Active Star t: September 03, 2024 Tequila Santamaria , CECY Other Provider Active Start: [facility] 2024 Yvrose Johnson , CECY Other Provider Active Start: [facility] 2024 Trish Christensen MD Other Provider Active Start: September 03, 2024 Barney Quan DO Other Provider Active Start : September 03, 2024 Clyde Avila MD Other Provider Active Start : September 03, 2024 Connor Dumont DO Other Provider Active Start: September 03, 2024 Evelio Smith MD Other Provider Active Start: September 03, 2024 Faith Mccoy MD Other Provider Active Start : September 03, 2024 Yulissa Shelby DO Other Provider Active St art: September 03, 2024 Ludwin Cuadra MD Other Provider Active Start: [facility] 2024 Baylee Ho APRN Other Provider Active Start: September 03, 2024 Carie Blunt MD Other Provider Active Start: September 03, 2024 Easton Galeano MD Other Provider Active Start: [facility] 2024 Yanique Echevarria MD Other Provider Active Start: September 03, 2024 Bobby Luz MD Other Provider Active Start: September 03, 2024 Yulissa Lemon DO Other Provider Active Start: September 03, 2024 Paxton Sparks MD Other Provider Active Start: [facility] 2024 Ulysses Valenzuela MD Other Provider Active Start: [facility] 2024 Meghana Pandya NP-C Other Provider Active St art: September 03, 2024 Sofia Warren APRN Other Provider Active Star t: September 03, 2024 Ton Conti MD Other Provider Active Start: September 03, 2024 Jordan Ortega MD Other Provider Active Start: [facility] 2024 Abner Lazar MD Other Provider Active Start: [facility] 2024 Nikko Faria MD Other Provider Active Star t: September 03, 2024 Jair Mejia MD Other Provider Active Start: [facility] 2024 Carolina Mccoy DO Other Provider Active Start: [facility] 2024 Ty Garrido DO Other Provider Active Start : September 03, 2024 Katarzyna Major APRN Other Provider Active Start: September 03, 2024 Andrew Grace DO Other Provider Active Start: September 03, 2024 Mariajose Alfred MD Other Provider Active Sta rt: September 03, 2024 Ebony Scott APRN Other Provider Active Start : September 03, 2024 Sameera Diaz APRN Other Provider Active St art: September 03, 2024 Haile Patel MD Other Provider Active Start: [facility] 2024 Lauro Garvey MD Other Provider Active S tart: September 03, 2024 Niranjan Ambrosio , DO Other Provider Active Star t: September 03, 2024 Aristeo Kong , DO Other Provider Active Start: September 03, 2024 Leonardo Lazar MD Other Provider Active Start: September 03, 2024 Addy Johns MD Other Provider Active Start: September 03, 2024 Haydee Cornejo APRN Other Provider Active Star t: September 03, 2024 Joe Coleman MD Other Provider Active Start: [facility] 2024 Awais Shafer MD Other Provider Active Start: [facility] 2024 Ramsey Dillon MD Other Provider Active Start: September 03, 2024 Ludwin Barry MD Other Provider Active Start : September 03, 2024 Bogdan Harris MD Other Provider Active Start: [facility] 2024 Anaid Borrero APRN Other Provider Active Sta rt: September 03, 2024 Gi Liz APRN Other Provider Active Start: September 03, 2024 Lanny Pisano RN Other Provider Active Start: [facility] 2024 [place] Other Provider Active Start: September 03, 2024 Jose R Lewis , PhD Other Provider Active S tart: September 03, 2024 Christina Vasquez DO Other Provider Active Start: September 03, 2024 Ramiro Louise MD Other Provider Active Start : September 03, 2024 Baljeet Rao , Other Provider Active Start: September 03, 2024 Tony Fuentes DO Other Provider Active Start: September 03, 2024 Haydee Farris APRN Other Provider Active St art: September 03, 2024 Cathie Gill , MIRELLA-C Other Provider Active Sta rt: September 03, 2024 Shaun Jackson APRN-DIETARY SUPERVISOR-C Other Provider Active Start: September 03, 2024 Henrry Jon MD Attending Provider, Other Provider Active Start: September 03, 2024 Naye Lawson MD Other Provider Active Star t: September 03, 2024 Shayy García NP-C Other Provider Active Start: September 03, 2024 Ashwin Carlos DO Other Provider Active Start : September 03, 2024 Dale Alvarenga II, MD Other Provider Active S tart: September 03, 2024 Demarco Segal DO Other Provider Active Start: September 03, 2024 Iron Pourer Relationship Specialty Start Date End Date Kavon Sams MD [address] [place] [address] PCP - General Family Medicine 08/15/23 Iron Pourer Relationship Specialty Start Date End Date Kavon Sams MD [address] [place] [address] PCP - General Family Medicine 08/15/23 Iron Pourer Relationship Specialty Start Date End Date Kavon Sams MD [address] [place] [address] PCP - General Family Medicine 08/15/23 Iron Pourer Relationship Specialty Start Date End Date Kavon Sams MD [address] [place] [address] PCP - General Family Medicine 08/15/23 Goals [...] alternate section No data available for this sectionGoals may be documented in an alternate sectionGoals may be documented in an alternate section Source Comments (unrecognize d section and content) In the event this informatio n is protected by the Federal Confidentiality of Alcohol and Drug Abuse Patient Records regulations: The Federal rules restrict any use of the information to criminally investigate or prosecute any alcohol or drug abuse patient.[facility] the event this information is protected by the Federal Confidentiality of Alcohol and Drug Abuse Patient Records regulations: The Federal rules restrict any use of the information to criminally investigate or prosecute any alcohol or drug abuse patient.[facility] the event this information is protected by the Federal Confidentiality of Alcohol and Drug Abuse Patient Records regulations: The Federal rules restrict any use of the information to criminally investigate or prosecute any alcohol or drug abuse patient.[facility] the event this information is protected by the Federal Confidentiality of Alcohol and Drug Abuse Patient Records regulations: The Federal rules restrict any use of the information to criminally investigate or prosecute any alcohol or drug abuse patient.[facility] the event this information is protected by the Federal Confidentiality of Alcohol and Drug Abuse Patient Records regulations: The Federal rules restrict any use of the information to criminally investigate or prosecute any alcohol or drug abuse patient.[facility] the event this information is protected by the Federal Confidentiality of Alcohol and Drug Abuse Patient Records regulations: The Federal rules restrict any use of the information to criminally investigate or prosecute any alcohol or drug abuse patient.[facility] the event this information is protected by the Federal Confidentiality of Alcohol and Drug Abuse Patient Records regulations: The Federal rules restrict any use of the information to criminally investigate or prosecute any alcohol or drug abuse patient.[facility] the event this information is protected by the Federal Confidentiality of Alcohol and Drug Abuse Patient Records regulations: The Federal rules restrict any use of the information to criminally investigate or prosecute any alcohol or drug abuse patient.[facility] the event this information is protected by the Federal Confidentiality of Alcohol and Drug Abuse Patient Records regulations: The Federal rules restrict any use of the information to criminally investigate or prosecute any alcohol or drug abuse patient.[facility] the event this information is protected by the Federal Confidentiality of Alcohol and Drug Abuse Patient Records regulations: The Federal rules restrict any use of the information to criminally investigate or prosecute any alcohol or drug abuse patient.[facility] the event this information is protected by the Federal Confidentiality of Alcohol and Drug Abuse Patient Records regulations: The Federal rules restrict any use of the information to criminally investigate or prosecute any alcohol or drug abuse patient.[facility] the event this information is protected by the Federal Confidentiality of Alcohol and Drug Abuse Patient Records regulations: The Federal rules restrict any use of the information to criminally investigate or prosecute any alcohol or drug abuse patient.[facility] the event this information is protected by the Federal Confidentiality of Alcohol and Drug Abuse Patient Records regulations: The Federal rules restrict any use of the information to criminally investigate or prosecute any alcohol or drug abuse patient.[facility] the event this information is protected by the Federal Confidentiality of Alcohol and Drug Abuse Patient Records regulations: The Federal rules restrict any use of the information to criminally investigate or prosecute any alcohol or drug abuse patient.[facility] the event this information is protected by the Federal Confidentiality of Alcohol and Drug Abuse Patient Records regulations: The Federal rules restrict any use of the information to criminally investigate or prosecute any alcohol or drug abuse patient.[facility] Reason for Visit (unrecogniz ed section and content) Reason Comments New Patient Reason Comments Radiology MRI Specialty Diagnoses / Procedures Referred By Contac t Referred To Contact MR IMAGING Diagnoses Spinal stenosis of cervical region Procedures MRI CERVICAL SPINE WO IVCON MRI SPINAL CANAL CERVICAL W/O CONTRAST David Andrea MD [address], [place] [address] [place] [address] [place] [address] Referral ID Status Reason Start Date Expiration Date V isits Requested Visits Authorized [id number] Closed Auto-Generate d Referral 09/13/2023 10/12/2024 1 1 Specialty Diagnoses / Procedures Referred By Contac t Referred To Contact MR IMAGING Diagnoses Abnormal posture Procedures MRI THORACIC SPINE WO IVCON MRI SPINAL CANAL THORACIC W/O CONTRAST MATRL David Valente MD [address] [place] [address] [facility] [place] [id number] Referral ID Status Reason Start Date Expiration Date V isits Requested Visits Authorized [id number] Closed Auto-Generate d Referral 09/13/2023 10/12/2024 1 1 Specialty Diagnoses / Procedures Referred By Contac t Referred To Contact MR IMAGING Diagnoses Spinal stenosis of lumbar region with neurogenic claudication Procedures MRI LUMBAR SPINE WO IVCON MRI SPINAL CANAL LUMBAR W/O CONTRAST MATERIAL David Valente MD [address] [place] [address] [facility] [place] [id number] Referral ID Status Reason Start Date Expiration Date V isits Requested Visits Authorized [id number] Closed Auto-Generate d Referral 09/13/2023 10/12/2024 1 1 Reason Comments Results MRI Reason Comments Parkinson's Disease Specialty Diagnoses / Procedures Referred By Contac t Referred To Contact Diagnoses Parkinson's disease, unspecified whether dyskinesia present, unspecified whether manifestations fluctuate (HCC) Procedures PROVIDER ORDERED FOLLOW UP OFFICE/OUTPATIENT NEW HIGH MDM 60 MINUTES David Valente MD [address] [place] [address] Referral ID Status Reason Start Date Expiration Date Visits Requested Visits Authorized [id number] Authorized PCP Requested Referral 10/13/2023 09/12/2024 1 1 Reason Comments Med Change Request Reason Comments Medication Update/Amantadine Reason Comments Established Patient Follow Up Reason Comments Established Patient Follow up Specialty Diagnoses / Procedures Referred By Contac t Referred To Contact Diagnoses Parkinson's disease with dyskinesia and fluctuating manifestations (HCC) Procedures PROVIDER ORDERED FOLLOW UP OFFICE/OUTPATIENT NEW HIGH MDM 60 MINUTES Cherie Cedeno PA-C [address] [id number] Referral ID Status Reason Start Date Expiration Date V isits Requested Visits Authorized [id number] Closed PCP Requested Referral 02/14/2024 01/13/2025 1 [...] (HCC) Procedures PROVIDER ORDERED FOLLOW UP OFFICE/OUTPATIENT [facility]3] 60 MINUTES Cherie Cedeno PA-C [address] [place] [address] [facility] [address] [place] [address] Referral ID Status Reason Start Date Expiration Date V isits Requested Visits Authorized [id number] Closed PCP Requested Referral 07/15/2024 02/21/2025 1 1 Reason Comments Surgical Clearance Reason Comments Fracture Reason Comments Fracture Sx 08/12/24 Fracture DOI 09/02/24 Reason Onset Date Comments Med Refill 09/24/2024 FOR RECORDS PERTAINING TO PATIENTS WHO ARE [...] BE BASED ON THE PRIMARY CLINICAL RECORDS. [employer] provides no warranty or guarantee of the accuracy or completeness of information in this document."
[2024-10-22 23:53] VITALS: BMI 16.9
[2024-10-22 23:57] VITALS: BP 177/80; PULSE 110; TEMP 36.4; O2SAT 93
[2024-10-23] VITALS (16 sets, daily range): BP systolic 126–184; BP diastolic 67–86; PULSE 79–114; TEMP 36.1–37.3; O2SAT 86–98
[2024-10-23] MEDS: MORPHINE SULFATE 2 MG/ML SYRINGE IV ×2 (00:06→06:38)
[2024-10-23] MEDS: 0.9 % SODIUM CHLORIDE 1,000 ML 125 ML IV ×2 (00:06→07:04)
[2024-10-23 05:05] LABS: Basophils Absolute Auto 0.1 10^3/uL (0.0-0.1); Basophils Percent Auto 0.9 % (0.2-2.0); Eosinophils Absolute Auto 0.2 10^3/uL (0.0-0.7); Eosinophils Percent Auto 2.3 % (0.9-7.0); Hematocrit 37.1 % (36.0-48.0); Hemoglobin 11.9 g/dL (12.0-16.0); Immature Granulocytes Abs Auto 0.02 10^3/uL (0.00-0.03); Immature Granulocytes Pct Auto 0.2 % (0.0-0.5); Lymphocytes Absolute Auto 1.8 10^3/uL (1.2-3.8); Lymphocytes Percent Auto 21.3 % (20.5-60.0); Mean Corpuscular HGB Conc 32.1 g/dL (29.9-35.2); Mean Corpuscular Hemoglobin 31.1 pg (26.7-34.0); Mean Corpuscular Volume 96.9 fL (81.0-99.0); Monocytes Absolute Auto 1.2 10^3/uL (0.3-0.8); Monocytes Percent Auto 14.1 % (1.7-12.0); Neutrophils Percent Auto 61.2 % (43.0-75.0); Platelet Count 404 10^3/uL (150-450); Red Blood Count 3.83 10^6/uL (4.20-5.40); Red Cell Distribution Width 15.8 % (11.0-15.0); White Blood Count 8.2 10^3/uL (4.0-11.0)
[2024-10-23 05:23] LABS: Anion Gap 9.6; BUN Creatinine Ratio 24.1; Calcium 10.6 mg/dL (8.5-10.1); Carbon Dioxide 25.3 mmol/L (21.0-32.0); Chloride 106 mmol/L (98-107); Estimated GFR (African America >60 (>=60 mL/min/1.73m^2); Estimated GFR (Non-African Ame >60 (>=60 mL/min/1.73m^2); Glucose 93 mg/dL (74-106); Potassium 3.9 mmol/L (3.5-5.1); Sodium 137 mmol/L (136-145)
[2024-10-23] MEDS: HYDRALAZINE HCL 20 MG/ML VIAL 10 MG IVP ×2 (06:12→21:49)
[2024-10-23] MEDS: CARBIDOPA/LEVODOPA CR 25-100 MG TABLET 1 TAB PO ×2 (06:13→11:24)
[2024-10-23] MEDS: ROPINIROLE HCL 0.25 MG TABLET 0.5 MG PO (06:13)
[2024-10-23] MEDS: AMANTADINE HCL 100 MG CAPSULE PO ×2 (06:16→11:24)
[2024-10-23 07:52] LABS: Alanine Aminotransferase 9 U/L (14-59); Albumin Level 3.5 g/dL (3.4-5.0); Aspartate Amino Transferase 12 U/L (15-37); Bilirubin Direct 0.1 mg/dL (0.0-0.2)
--- NOTE | 2024-10-23 07:55 | P.HP_ITS ---
HPI H&P: HPI History of Present Illness Chief complaint: ABDOMINAL PAIN, ENTERITIS Narrative: Patient presented to the emergency room with increasing abdominal pain, feels like she is constipated, had not had a bowel movement for 2 to 3 days but not usually getting that much pain when she has her constipation issues in the past. Lab workup was unremarkable, CT findings consistent with enteritis but patient without any enteritis symptoms, no fever, no chills no diarrhea no emesis When I saw patient up in the medical surgical floor, sleeping, awakened easily, seems to be in moderate pain, Opioid HPI Opioid Management Most Recent Pain and Opioid Data: Last Pain Scale 2 Today, 07:36 Last Pain Intensity 0 08/11/23, 10:28 Last Pain Assessment Today, 00:00 Last ORT Total Score 0 10/22/24, 23:53 Last ORT Risk Category Low Risk 10/22/24, 23:53 Review of Systems ROS Status of ROS 10 or more systems reviewed and unremark able except as noted in history and below [facility] Medical History (Updated 10/23/24 @ 08:26 by Kavon Leary MD) Visit for PT (physical therapy) Right wrist fracture ?S62.101A - Fracture of unspecified carpal bone, right wrist, initial encounter for closed fracture (ICD-10) Hypoxia ?R09.02 - Hypoxemia (ICD-10) Congestive heart failure ?I50.9 - Heart failure, unspecified (ICD-10) Weakness generalized ?R53.1 - Weakness (ICD-10) Acute UTI ?N39.0 - Urinary tract infection, site not specified (ICD-10) Acute diarrhea ?R19.7 - Diarrhea, unspecified (ICD-10) Acute kidney injury ?N17.9 - Acute kidney failure, unspecified (ICD-10) Hiatal hernia ?K44.9 - Diaphragmatic hernia without obstruction or gangrene (ICD-10) COPD (chronic obstructive pulmonary disease) ?J44.9 - Chronic obstructive pulmonary disease, unspecified (ICD-10) Parkinsons ?G20 - Parkinson's disease (ICD-10) Hypertension ?I10 - Essential (primary) hypertension (ICD-10) Surgical History History of appendectomy ?Z90.49 - Acquired absence of other specified parts of digestive tract (ICD- 10) H/O: hysterectomy ?Z90.710 - Acquired absence of both cervix and uterus (ICD-10) H/O splenectomy ?Z90.81 - Acquired absence of spleen (ICD-10) Family History Brother Family history of stroke Family history of hypertension Mother Family history of stroke Family history of hypertension Father Family history of cancer Social History (Updated 10/23/24 @ 00:40 by Rachelle Kimble) Within the past year, how often did you have a drink containing alcohol: never Within the past year, how many standard drinks containing alcohol did you have on a typical day: 1 or 2 Within the past year, how often did you have six or more drinks on one occasion: never Total score: 0 Score interpretation: A score less than 3 is consistent with normal alcohol consumption. Smoking status: Former smoker Non-prescribed substance use: denies use Previous occupational history: retired Highest level of school completed/degree received: high school graduate Are you now , , , , never or living with a partner: In a typical week, how many times do you talk on the telephone with family, friends, or neighbors: 3 or more times per week How often do you get together with friends or relatives: 3 or more times per week How often do you attend denominational or mu-ism services: 4 or more times per year Do you belong to any clubs or organizations such as denominational groups unions, fraternal or athletic groups, or school groups: no Total score: 2 Score interpretation: A score of greater than or equal to 2 indicates the lowest level of social isolation. Little interest or pleasure in doing things: not at all Feeling down, depressed, or hopeless: not at all Feel stressed/tense/nervous/anxious/difficulty sleeping: not at all Do you think of yourself as: straight/heterosexual Gender Identity: female Meds Home Medications and Allergies Home Medications ?Medication ?Instructions ?Recorded ?Confirmed ?Type alprazolam 1 mg tablet 1.5 mg PO BEDTIME PRN sleep 02/08/23 10/23/24 History amlodipine 5 mg tablet 5 mg PO DAILY 02/08/2310/22 History potassium chloride 20 mEq 20 meq PO BID 02/08/2310/22 History tablet,extended release(part/cryst) (Klor-Con M) cholecalciferol (vitamin D3) 125 125 mcg PO DAILY 07/1210/22/24 History mcg (5,000 unit) capsule aspirin 81 mg chewable tablet 81 mg PO DAILY 08/10/23 10/22/24 History lutein 25 mg-zeaxanthin 5 mg 1 cap PO DAILY 08/10/23 0 10/22/24 History capsule rasagiline 1 mg tablet 1 mg PO DAILY 08/10/2310/22 History amantadine HCl 100 mg tablet 100 mg PO BID@0700,1200 1 10/22/24 History carbidopa ER 25 mg-levodopa 100 mg 1 tab PO .7am, 12pm , 5pm 04/09/24 10/22/24 History tablet,extended release pantoprazole 40 mg tablet,delayed 40 mg PO BID 4 10/22/24 History release hydralazine 25 mg tablet 25 mg PO Q12H 10/22/2410/22 History ropinirole 0.5 mg tablet 0.5 mg PO .QHS 10/23/2410/09 History sucralfate 1 gram tablet 1 g PO QID 10/23/24 10/23/24 History Allergies Allergy/AdvReac Type Severity Reaction Status Date / Time Sulfa (Sulfonamide Allergy Severe Anaphylaxis Verified 10/22/24 20:20 Antibiotics) Exam Constitutional Vital Signs, click to edit/add: Last Vital Signs Temp 97.0 F L 10/23/24 05:31 Pulse 79 10/23/24 05:31 Resp 18 10/23/24 05:31 BP 171/86 H 10/23/24 06:12 Pulse Ox 91 L 10/23/24 05:44 O2 Del Method Nasal Cannula 10/23/24 05:44 O2 Flow Rate 1 10/23/24 05:44 Documenting provider has reviewed patient's vital signs: yes Common normals: apparent distress (Moderate painful distress) Chest Common normals: inspection of chest normal Respiratory Common normals: normal respiratory effort and no retractions Cardio Common normals: regular rate and regular rhythm GI Common normals: Normal to inspection, nondistended, normoactive bowel sounds present; negative for soft to palpation (Moderately firm) and tender (Significant tenderness to light palpation and positive rebound tenderness) Extremity Common normals: normal to inspection and full ROM Neuro Common normals: oriented x3, CN's II-XII intact bilaterally and moves all extremities Other: Stiffness and tremor consistent with her diagnosis of Parkinson's Results Labs Labs: Short CBC 10/22/24 10/23/24 Range/Units 20:32 04:47 WBC 9.1 8.2 (4.0-11.0) 10^3/uL Hgb 12.2 11.9 L (12.0-16.0) g/dL Hct 37.1 37.1 (36.0-48.0) % Plt Count 445 404 (150-450) 10^3/uL BMP 10/22/24 10/23/24 20:32 04:47 Sodium 140 137 Potassium 4.3 3.9 Chloride 105 106 Carbon Dioxide 25.4 25.3 BUN 28.0 H 21.0 H Creatinine 1.08 H 0.87 Glucose 112 H 93 Calcium 11.5 H 10.6 H Liver Function 10/22/24 Range/Units 20:32 Total Bilirubin 0.5 (0.2-1.0) mg/dL AST 13 L (15-37) U/L ALT 8 L (14-59) U/L Alkaline Phosphatase 221 H (46-116) U/L Albumin 3.9 (3.4-5.0) g/dL Assessment and Plan Assessment and Plan (1) Abdominal pain: (2) Lumbar spondylosis: (3) Congestive heart failure: (4) COPD (chronic obstructive pulmonary disease): (5) Hypertension: (6) Parkinsons: Plan Admission findings: Sinus tachycardia and uncontrolled hypertension with mild hypoxia, laboratory result are unremarkable other than elevated liver function test, CT scan with dilated biliary ducts, CT findings consistent with enteritis, exam not consistent with enteritis, and symptoms not consistent with enteritis, pain out of proportion to physical findings Acute abdomen-on my exam she has definite rebound tenderness, diffusely so, white blood cell count normal but with age could be suppressed, starting antibiotics for acute abdomen, CTA for possible ischemic colitis, findings on CT in ER were enteritis but patient does not have enteritis symptoms, no fever, no chills no emesis no diarrhea Elevated liver function test and elevated intra and extra biliary ducts-repeat liver profile today Uncontrolled hypertension-improved this morning General Anxiety disorder continue with home medications GERD-IV Protonix while awaiting CTA as outlined above Parkinson's-continue with oral Parkinson's medications Admission status: Patient initially placed in observation bed, no improvement in symptoms overnight, with acute abdominal findings as outlined above, patient will remain n.p.o., medically necessary treatment will span 2 midnights. Inpatient status
[2024-10-23 08:04] LABS: Albumin Globulin Ratio 1.3; Alkaline Phosphatase 207 U/L (46-116); Bilirubin Total 0.4 mg/dL (0.2-1.0); Globulin 2.8 g/dL; Total Protein 6.3 g/dL (6.4-8.2)
[2024-10-23] MEDS: ENOXAPARIN SODIUM 40 MG/0.4 ML SYRINGE SUBQ (08:38)
[2024-10-23] MEDS: LACTATED RINGER'S SOLUTION 1,000 ML 50 ML IV (08:39)
[2024-10-23] MEDS: AMLODIPINE BESYLATE 5 MG TABLET PO (08:39)
[2024-10-23] MEDS: HYDRALAZINE HCL 25 MG TABLET PO (08:39)
[2024-10-23] MEDS: ASPIRIN 81 MG TAB.CHEW PO (08:39)
[2024-10-23] MEDS: LEVOFLOXACIN IN DEXTROSE 5 % 750 MG/150 ML PREMIX 100 MG IV (08:39)
[2024-10-23] MEDS: PANTOPRAZOLE SODIUM 40 MG VIAL IV (08:40)
--- NOTE | 2024-10-23 09:46 | SWNOTE1 ---
SW spoke to PT/OT in [facility], they just worked with pt and recommending SNF. SW to speak with family. SW spoke with daughter in [facility]. SW let her know recommendation of SNF. SW asked if she thought pt would be agreeable. She stated she will likely do whatever family recommends she does. She stated she has not been to SNF before, but does feel she needs it this time. SW provided daughter with list from Medicare.gov with star ratings. She would like [facility]. SW explained the Medicare guidelines for SNF and as long as she has medical necessity to be here 3 midnights, Medicare will pay. She voiced understanding. SW to send referral. SW did review IMM form with daughter as well, SW asked daughter if pt was alert and oriented at this time, she stated she is in and out. SW had daughter sign IMM. SW to speak with pt later this morning in regards to SNF and IMM form. Important Message from Medicare reviewed and discussed with patient's daughter. Pt's daughter verbalized understanding and signed the form. Original placed in pt's room and copy placed in patient?s chart. Referral sent to [facility]. Referral included face sheet, ED note, H&P, provider notes, case management report, nursing notes, diagnostic imaging, med list, and PT/OT notes.
[2024-10-23] MEDS: PIPERACILLIN SODIUM/TAZOBACTAM 3.375 GM in 0.9 % SODIUM CHLORIDE 50 ML IV ×2 (10:00→17:41)
[2024-10-23] MEDS: HYOSCYAMINE SULFATE 0.125 MG TAB.SUBL 0.25 MG SL (11:24)
--- NOTE | 2024-10-23 11:27 | SWNOTE1 ---
[facility] is able to accept. They are asking about secondary insurance. VANESSA sent the copy of card in chart. VANESSA also sent HCPOA and DNR paperwork to Rhonda at [facility].
[2024-10-23] MEDS: ONDANSETRON PF 4 MG/2 ML VIAL IV (11:56)
[2024-10-23 14:00] LABS: Bilirubin Urine NEGATIVE (NEGATIVE); Blood Urine TRACE-I (NEGATIVE); Clarity Urine CLEAR (CLEAR); Color Urine LT. YELLOW (YELLOW); Glucose Urine UA NEGATIVE (NEGATIVE); Ketones Urine NEGATIVE (NEGATIVE); Leukocyte Esterase Urine NEGATIVE (NEGATIVE); Nitrite Urine NEGATIVE (NEGATIVE); Protein Urine NEGATIVE (NEG/TRACE); Specific Gravity Urine 1.015 (1.005-1.025); Urobilinogen Urine 0.2 EU/dL (0.2-1.0)
[2024-10-23 14:13] LABS: Bacteria Urine TRACE #/HPF (NONE SEEN); Cast Seen? NONE SEEN #/LPF (NONE SEEN); Crystals Seen? None Seen #/HPF (None Seen); Mucus Urine NONE SEEN (NONE SEEN); Squamous Epithelial Cell Urine RARE #/LPF (NONE/RARE); Urine Culture Indicated ALREADY ORDERED
[2024-10-23] MEDS: IPRATROPIUM/ALBUTEROL SULFATE 3 ML AMPUL.NEB IH ×2 (16:50→22:02)
[2024-10-23 21:19] LABS: Glucometer 92 mg/dL (74-106)
[2024-10-23 23:05] LABS: Basophils Absolute Auto 0.1 10^3/uL (0.0-0.1); Basophils Percent Auto 0.6 % (0.2-2.0); Eosinophils Percent Auto 0.2 % (0.9-7.0); Hematocrit 37.2 % (36.0-48.0); Hemoglobin 12.3 g/dL (12.0-16.0); Immature Granulocytes Abs Auto 0.01 10^3/uL (0.00-0.03); Immature Granulocytes Pct Auto 0.1 % (0.0-0.5); Lymphocytes Absolute Auto 1.3 10^3/uL (1.2-3.8); Lymphocytes Percent Auto 13.8 % (20.5-60.0); Mean Corpuscular HGB Conc 33.1 g/dL (29.9-35.2); Mean Corpuscular Hemoglobin 31.9 pg (26.7-34.0); Mean Corpuscular Volume 96.6 fL (81.0-99.0); Mean Platelet Volume 11.2 fL (9.5-13.5); Neutrophils Absolute Auto 6.9 10^3/uL (1.4-6.5); Neutrophils Percent Auto 74.3 % (43.0-75.0); Platelet Count 439 10^3/uL (150-450); Red Blood Count 3.85 10^6/uL (4.20-5.40); Red Cell Distribution Width 15.9 % (11.0-15.0); White Blood Count 9.4 10^3/uL (4.0-11.0)
[2024-10-23 23:13] LABS: Ammonia <10 umol/L (11-32)
[2024-10-23] MEDS: NALOXONE HCL 0.4 MG/ML VIAL IV (23:13)
[2024-10-23 23:15] LABS: Alanine Aminotransferase <6 U/L (14-59); Albumin Globulin Ratio 1.1; Albumin Level 3.3 g/dL (3.4-5.0); Alkaline Phosphatase 200 U/L (46-116); Anion Gap 14.2; Aspartate Amino Transferase 8 U/L (15-37); BUN Creatinine Ratio 17.6; Bilirubin Total 0.5 mg/dL (0.2-1.0); C Reactive Protein 0.59 mg/dL (<=0.50); Calcium 10.5 mg/dL (8.5-10.1); Carbon Dioxide 25.2 mmol/L (21.0-32.0); Chloride 107 mmol/L (98-107); Estimated GFR (African America >60 (>=60 mL/min/1.73m^2); Estimated GFR (Non-African Ame 52 (>=60 mL/min/1.73m^2); Glucose 99 mg/dL (74-106); Magnesium 1.9 mg/dL (1.8-2.4); Potassium 3.4 mmol/L (3.5-5.1); Sodium 143 mmol/L (136-145); Total Protein 6.3 g/dL (6.4-8.2)
[2024-10-23 23:17] LABS: Lactate/Lactic Acid 1.7 mmol/L (0.4-2.0)
[2024-10-23 23:30] LABS: ABG PCO2 39.3 mmHg (35.0-45.0); Allen Test POSITIVE (POSITIVE); Base Excess ABG -1.6 mmol/L (-2.0-2.0); HCO3 ABG 23.4 mmol/L (22.0-26.0); O2 Mode Nasal cannula; PO2 ABG 75.1 mmHg (80.0-100.0); pH ABG 7.384 (7.350-7.450)
[2024-10-23 23:31] LABS: Liters per Minute 2; Puncture Site RR
[2024-10-23 23:45] LABS: Bilirubin Urine NEGATIVE (NEGATIVE); Blood Urine NEGATIVE (NEGATIVE); Clarity Urine CLEAR (CLEAR); Color Urine LT. YELLOW (YELLOW); Glucose Urine UA NEGATIVE (NEGATIVE); Ketones Urine TRACE mg/dL (NEGATIVE); Leukocyte Esterase Urine SMALL (NEGATIVE); Nitrite Urine NEGATIVE (NEGATIVE); Protein Urine 30 mg/dL (NEG/TRACE); Urobilinogen Urine 0.2 EU/dL (0.2-1.0)
[2024-10-23 23:52] LABS: Bacteria Urine SMALL #/HPF (NONE SEEN); Calcium Oxalate Crystals Urine RARE; Cast Seen? NONE SEEN #/LPF (NONE SEEN); Crystals Seen? Seen #/HPF (None Seen); Mucus Urine NONE SEEN (NONE SEEN); RBC Urine 0-2 #/HPF (0-2); Squamous Epithelial Cell Urine RARE #/LPF (NONE/RARE)
[2024-10-23 23:53] LABS: Urine Culture Indicated YES-FRMC
[2024-10-24] VITALS (13 sets, daily range): BP systolic 142–166; BP diastolic 62–70; PULSE 73–126; TEMP 36.7–37.6; O2SAT 90–98; BMI 16.9
[2024-10-24] MEDS: ACETAMINOPHEN 1,000 MG/100 ML PREMIX 400 MG IV (00:09)
[2024-10-24] MEDS: MAGNESIUM SULFATE IN WATER 2 GM/50 ML PREMIX IV (00:09)
--- NOTE | 2024-10-24 01:41 | PC.NURSE ---
0- pt lethargic and obtunded at this time. Pt did not react to vital signs being taken, blood glucose check, or sternal rub. BP 184/78; HR 114; RR 18; O2 sat 91% on 1 L nasal cannula; temp 99.1. Glucose 92. Abdominal tenderness and hypoactive bowel sounds throughout. Right side more firm than the left with slight distention. Pt reacted with a grunt to abdominal palpitation. Night hospitalist made aware and orders placed. 2225- labs drawn and pt down to radiology with aide and nurse retail chain store area supervisor. 2229- narcan given per order and ABGs drawn 2316- RN bladder scanned patient for >831 mLs; night hospitalist made aware and order for murguia catheter. Catheter placed by RN. Temp increased to 99.6 and order placed for IV tylenol. 2333- catheter draining and initially removed 800 mLs; UA sent down to lab. 2336- CT head results sent to night hospitalist 2351- HR 127; O2 sats 95% 2 Liters nasal cannula; BP 163/69 2344- RN sent hospitalist abd scan results 0017- BP 171/71; HR 128 0034- RN asked night hospitalist if she wanted blood cultures; order was placed and cultures were drawn. 0036- BP 172/70; HR 127 0105- Night hospitalist made aware patient was having full body tremors to the point they were shaking her bed. Night hospitalist asked for patient to be bladder scanned again to ensure murguia catheter is draining. RN scanned bladder and showed 4mls. 0116- BP 158/65; HR 127; 98.9
[2024-10-24] MEDS: PIPERACILLIN SODIUM/TAZOBACTAM 3.375 GM in 0.9 % SODIUM CHLORIDE 50 ML IV ×3 (02:12→18:00)
[2024-10-24] MEDS: LORAZEPAM 2 MG/ML VIAL 1 MG IV (02:12)
--- NOTE | 2024-10-24 02:59 | PC.NURSE ---
pt stripped her socks off and pulled off her cath secure. RN in room at bedside and patient states she wants water. RN tried to explain to patient she is NPO, pt said to sneak her an ice cube and no one will know. RN again tried to explain to the patient why she is NPO. 0345- patient set off the bed alarm stating she was looking for her kids upstairs and stated she was cold. Temp at this time is 97.6. New linens on bed and clean gown on patient. Pt then began asking where her mom is. RN told patient she would let her know if RN saw patient's mom.
[2024-10-24] MEDS: IPRATROPIUM/ALBUTEROL SULFATE 3 ML AMPUL.NEB IH ×4 (05:06→22:34)
[2024-10-24] MEDS: LACTATED RINGER'S SOLUTION 1,000 ML 50 ML IV (06:05)
[2024-10-24] MEDS: CARBIDOPA/LEVODOPA CR 25-100 MG TABLET 1 TAB PO ×3 (06:06→17:57)
[2024-10-24] MEDS: HYOSCYAMINE SULFATE 0.125 MG TAB.SUBL 0.25 MG SL ×4 (06:06→21:43)
[2024-10-24] MEDS: AMANTADINE HCL 100 MG CAPSULE PO ×2 (06:06→12:28)
[2024-10-24 06:22] LABS: Basophils Percent Auto 0.4 % (0.2-2.0); Hematocrit 37.1 % (36.0-48.0); Hemoglobin 12.2 g/dL (12.0-16.0); Immature Granulocytes Abs Auto 0.01 10^3/uL (0.00-0.03); Immature Granulocytes Pct Auto 0.1 % (0.0-0.5); Mean Corpuscular HGB Conc 32.9 g/dL (29.9-35.2); Mean Corpuscular Hemoglobin 31.6 pg (26.7-34.0); Mean Corpuscular Volume 96.1 fL (81.0-99.0); Monocytes Absolute Auto 1.2 10^3/uL (0.3-0.8); Monocytes Percent Auto 13.4 % (1.7-12.0); Neutrophils Absolute Auto 6.7 10^3/uL (1.4-6.5); Neutrophils Percent Auto 75.1 % (43.0-75.0); Platelet Count 420 10^3/uL (150-450); Red Blood Count 3.86 10^6/uL (4.20-5.40); Red Cell Distribution Width 15.9 % (11.0-15.0)
[2024-10-24 06:30] LABS: Alanine Aminotransferase 15 U/L (14-59); Albumin Globulin Ratio 1.2; Albumin Level 3.5 g/dL (3.4-5.0); Alkaline Phosphatase 200 U/L (46-116); Anion Gap 16.1; Aspartate Amino Transferase 13 U/L (15-37); BUN Creatinine Ratio 14.9; Bilirubin Total 0.4 mg/dL (0.2-1.0); Calcium 10.8 mg/dL (8.5-10.1); Carbon Dioxide 25.4 mmol/L (21.0-32.0); Chloride 107 mmol/L (98-107); Estimated GFR (African America 56 (>=60 mL/min/1.73m^2); Estimated GFR (Non-African Ame 46 (>=60 mL/min/1.73m^2); Globulin 2.9 g/dL; Glucose 110 mg/dL (74-106); Potassium 3.5 mmol/L (3.5-5.1); Sodium 145 mmol/L (136-145); Total Protein 6.4 g/dL (6.4-8.2)
[2024-10-24] MEDS: SUCRALFATE 1 GM TABLET PO ×3 (07:46→21:43)
[2024-10-24] MEDS: 0.9 % SODIUM CHLORIDE 1,000 ML 500 ML IV (07:46)
--- NOTE | 2024-10-24 07:53 | P.PN_ITS ---
Progress Note: Subjective Subjective Interval history: Patient has an episode last night of altered mental status, unable to arouse, even with sternal rub, CT scan of head obtained was negative, Narcan given without any significant improvement, patient finally slowly over the course of the evening woke up, when I saw her this morning she was sleeping but awakened easily, wanting to try to go home today, told her she has lots of hurdles to get over in terms of eating and ambulating Exam Constitutional Vital Signs, click to edit/add: Last Vital Signs Temp 98.1 F 10/24/24 07:40 Pulse 119 H 10/24/24 07:40 Resp 20 10/24/24 07:40 BP 166/70 H 10/24/24 07:40 Pulse Ox 95 10/24/24 07:40 O2 Del Method Nasal Cannula 10/24/24 07:40 O2 Flow Rate 2 10/24/24 07:40 Documenting provider has reviewed patient's vital signs: yes Common normals: apparent distress (No real distress but real distress but sleepy no real distress but sleepy) Exam limitations: no altered mental status HENMT Common normals: normocephalic Chest Common normals: inspection of chest normal Respiratory Common normals: normal respiratory effort, no retractions and clear to auscultation bilaterally Cardio Common normals: regular rhythm; irregular rate Rate: tachycardic GI Common normals: Normal to inspection, nondistended, normoactive bowel sounds present, soft to palpation and non-tender (10 tenderness resolved, including rebound tenderness) Extremity Common normals: normal to inspection Progress Note: Objective Labs Labs: Short CBC 10/23/24 10/24/24 Range/Units 22:42 05:27 WBC 9.4 9.0 (4.0-11.0) 10^3/uL Hgb 12.3 12.2 (12.0-16.0) g/dL Hct 37.2 37.1 (36.0-48.0) % Plt Count 439 420 (150-450) 10^3/uL BMP 10/23/24 10/24/24 22:42 05:27 Sodium 143 145 Potassium 3.4 L 3.5 Chloride 107 107 Carbon Dioxide 25.2 25.4 BUN 18.0 17.0 Creatinine 1.02 1.14 H Glucose 99 110 H Calcium 10.5 H 10.8 H Liver Function 10/23/24 10/23/24 10/24/24 Range/Units 04:47 22:42 05:27 Total Bilirubin 0.4 0.5 0.4 (0.2-1.0) mg/dL Direct Bilirubin 0.1 (0.0-0.2) mg/dL AST 12 L 8 L 13 L (15-37) U/L ALT 9 L <6 L 15 (14-59) U/L Alkaline Phosphatase 207 H 200 H 200 H (46-116) U/L Albumin 3.5 3.3 L 3.5 (3.4-5.0) g/dL Urine 10/23/24 10/23/24 Range/Units 13:45 23:30 Urine Color Lt. yellow Lt. yellow (YELLOW) Urine Clarity Clear Clear (CLEAR) Urine pH 6.0 6.0 (5.0-9.0) Ur Specific [place] 1.015 1.020 (1.005-1.025) Urine Protein Negative 30 A (NEG/TRACE) mg/dL Urine Glucose (UA) Negative Negative (NEGATIVE) mg/dL Progress Note: A&P Assessment and Plan (1) Abdominal pain: (2) Lumbar spondylosis: (3) Congestive heart failure: (4) COPD (chronic obstructive pulmonary disease): (5) Hypertension: (6) Parkinsons: Plan Admission findings: Sinus tachycardia and uncontrolled hypertension with mild hypoxia, laboratory result are unremarkable other than elevated liver function test, CT scan with dilated biliary ducts, CT findings consistent with enteritis, exam not consistent with enteritis, and symptoms not consistent with enteritis, pain out of proportion to physical findings Acute abdomen-rebound tenderness resolved, CT scan including CTA unremarkable, patient denies pain at rest also. Much improved from previous day, will advance diet, if she does tolerate diet and without increase in pain and able to am bulate she will likely be discharged to home later today Altered mental status-overnight difficult to arouse despite Narcan sternal rub, CT scan negative, awake this morning, no complaints, no focal neurological deficits this morning, and discontinued morphine, could be combination of the morphine and her nighttime benzodiazepine Bladder outlet obstruction-Monroe placed overnight, remove Monroe this morning, bladder scan later in the day Elevated liver function test and elevated intra and extra biliary ducts-improved Hypokalemia-improved Acute UTI-continue with current antibiotic regiment Uncontrolled hypertension and tachycardia-fluid bolus this morning, increased hydralazine General Anxiety disorder continue with home medications GERD-IV Protonix while awaiting CTA as outlined above Parkinson's-continue with oral Parkinson's medications Rehab potential: Patient mark she wants to try going home today, told her she needs to ambulate safely with walker and be weaned off of supplemental oxygen and then possible discharge to home later today otherwise she is excellent rehabilitation candidate 1 who is highly motivated for returning to home CODE [id number] Admission status: Patient initially placed in observation bed, no improvement in symptoms overnight, with acute abdominal findings as outlined above, patient will remain n.p.o., medically necessary treatment will span 2 midnights. Inpatient status ? Urinary Catheter Management Urinary Catheter Management Urethral: Cath placed during this visit: yes Urethral indwelling: Yes Reason for continuing: acute urinary retention Insertion date: 10/24/24 Insertion time: 23:30
--- NOTE | 2024-10-24 08:13 | PT.DAILY ---
Physical Therapy Daily Note PT Daily Note/Assess Start: 10/23/24 09:39 Freq: Status: Active Protocol: Document 10/24/24 08:00 KOTA (Rec: 10/24/24 08:13 KOTA [id number]) Visit Not Completed Visit Not Completed Visit Not Completed Pt refusing Due to: Other Reason Visit Attempted to wake patient for ambulation, patient Not Completed declines to get up stating I am tired, leave me alone. Educated patient that stated she could go home if she got up and walked with PT, and she continued to refuse. Notified Nursing, and we will re-attempt later today. Physical Therapy Daily Note/Assessment Time In/Time Out Time In 08:00 Time Out 08:00 GG. Functional Abilities and Goals-Complete for Swing Bed Patients Only [id number]. Self-Care [id number]. Mobility
--- NOTE | 2024-10-24 09:05 | SWNOTE1 ---
SW stopped in pt's room. Pt's daughter in room. Pt was sleeping, daughter sitting beside her, playing music for her on phone. VANESSA did ask pt's daughter about the night last night. Daughter did voiced that it could have been from the Fentanyl or infection? SW did advise daughter that pt had voiced to doctor that she wants to go home. Daughter stated she always says that and there is no way pt can return home like this. VANESSA did let daughter know that therapy came in to work with her and she did not want to at this time. Therapy going to stop back later. VANESSA expressed to daughter that we will take it a day at a time and SW will send updates to [facility]. Daughter still wants her to go to rehab at this time. VANESSA to update Dr. Leary.
--- NOTE | 2024-10-24 10:10 | SWNOTE1 ---
VANESSA faxed updates to Teodora at [facility]. Updates included physician note from today, PT/OT attempts to see pt, nursing notes vu showed pt's confusion last night and this am, vitals, labs, and medication list.
[2024-10-24] MEDS: PANTOPRAZOLE SODIUM 40 MG VIAL IV (10:20)
[2024-10-24] MEDS: AMLODIPINE BESYLATE 5 MG TABLET PO (10:20)
[2024-10-24] MEDS: HYDRALAZINE HCL 50 MG TABLET PO ×2 (10:20→21:43)
[2024-10-24] MEDS: ASPIRIN 81 MG TAB.CHEW PO (10:20)
[2024-10-24] MEDS: ENOXAPARIN SODIUM 40 MG/0.4 ML SYRINGE SUBQ (10:20)
--- NOTE | 2024-10-24 10:43 | SWNOTE1 ---
VANESSA did speak with pt's daughter again and pt is current with [facility]. SW to updates [facility] with discharge plans of SNF. VANESSA faxed [facility] pt's face sheet and H&P to update them.
--- NOTE | 2024-10-24 11:18 | SWNOTE1 ---
SW did complete HENS online in case of discharge over the weekend.
[2024-10-24] MEDS: ONDANSETRON PF 4 MG/2 ML VIAL IV (12:11)
[2024-10-24] MEDS: ACETAMINOPHEN 500 MG TABLET 1000 MG PO (12:28)
[2024-10-24 13:05] LABS: Basophils Absolute Auto 0.1 10^3/uL (0.0-0.1); Basophils Percent Auto 1.2 % (0.2-2.0); Eosinophils Percent Auto 0.6 % (0.9-7.0); Hemoglobin 11.4 g/dL (12.0-16.0); Immature Granulocytes Abs Auto 0.01 10^3/uL (0.00-0.03); Immature Granulocytes Pct Auto 0.2 % (0.0-0.5); Lymphocytes Absolute Auto 0.9 10^3/uL (1.2-3.8); Mean Corpuscular HGB Conc 33.5 g/dL (29.9-35.2); Mean Corpuscular Volume 95.5 fL (81.0-99.0); Mean Platelet Volume 10.4 fL (9.5-13.5); Monocytes Absolute Auto 0.9 10^3/uL (0.3-0.8); Monocytes Percent Auto 13.4 % (1.7-12.0); Neutrophils Absolute Auto 4.7 10^3/uL (1.4-6.5); Neutrophils Percent Auto 70.6 % (43.0-75.0); Platelet Count 385 10^3/uL (150-450); Red Blood Count 3.56 10^6/uL (4.20-5.40); Red Cell Distribution Width 15.9 % (11.0-15.0); White Blood Count 6.6 10^3/uL (4.0-11.0)
[2024-10-24] MEDS: LACTULOSE 10 GM/15 ML UD CUP 30 GM PO ×2 (13:12→17:57)
[2024-10-24 13:19] LABS: Ammonia <10 umol/L (11-32); C Reactive Protein 0.54 mg/dL (<=0.50)
--- NOTE | 2024-10-24 13:42 | PC.NURSE ---
enema and lactulose given. patient tolerated well
--- NOTE | 2024-10-24 14:04 | SWNOTE1 ---
SW took packet to the med/surge floor in case pt is discharged over the weekend.
--- NOTE | 2024-10-24 18:08 | PC.NURSE ---
rn attempted to give lactulose, patient adamant she is not taking it again. Very much more alert than earlier today but still a bit confused
--- NOTE | 2024-10-24 18:33 | DIETREC ---
Recommend 237 mL Ensure Clear BID d/t poor PO intakes and significant weight loss.
--- NOTE | 2024-10-24 19:24 | PC.NURSE ---
dr houser notified that pt refuses lactulose
[2024-10-24] MEDS: ROPINIROLE HCL 0.25 MG TABLET 0.5 MG PO (21:43)
[2024-10-24] MEDS: ALPRAZOLAM 1 MG TABLET 1.5 MG PO (21:43)
[2024-10-24] MEDS: POLYETHYLENE GLYCOL 3350 17 GM POWDER PACKET PO (21:43)
[2024-10-25] VITALS (9 sets, daily range): BP systolic 157–185; BP diastolic 69–85; PULSE 73–125; TEMP 36.7–37.1; O2SAT 90–94
[2024-10-25] MEDS: IPRATROPIUM/ALBUTEROL SULFATE 3 ML AMPUL.NEB IH ×2 (04:59→11:19)
[2024-10-25] MEDS: HYOSCYAMINE SULFATE 0.125 MG TAB.SUBL 0.25 MG SL ×3 (06:06→19:50)
[2024-10-25] MEDS: CARBIDOPA/LEVODOPA CR 25-100 MG TABLET 1 TAB PO ×3 (06:06→19:50)
[2024-10-25] MEDS: AMANTADINE HCL 100 MG CAPSULE PO ×2 (06:06→14:29)
[2024-10-25 06:13] LABS: Basophils Absolute Auto 0.1 10^3/uL (0.0-0.1); Basophils Percent Auto 0.8 % (0.2-2.0); Eosinophils Percent Auto 0.1 % (0.9-7.0); Hematocrit 35.8 % (36.0-48.0); Hemoglobin 11.6 g/dL (12.0-16.0); Immature Granulocytes Abs Auto 0.01 10^3/uL (0.00-0.03); Immature Granulocytes Pct Auto 0.1 % (0.0-0.5); Lymphocytes Absolute Auto 0.9 10^3/uL (1.2-3.8); Lymphocytes Percent Auto 10.7 % (20.5-60.0); Mean Corpuscular HGB Conc 32.4 g/dL (29.9-35.2); Mean Corpuscular Hemoglobin 31.2 pg (26.7-34.0); Mean Corpuscular Volume 96.2 fL (81.0-99.0); Monocytes Absolute Auto 0.8 10^3/uL (0.3-0.8); Neutrophils Absolute Auto 6.7 10^3/uL (1.4-6.5); Neutrophils Percent Auto 79.3 % (43.0-75.0); Platelet Count 344 10^3/uL (150-450); Red Blood Count 3.72 10^6/uL (4.20-5.40); White Blood Count 8.4 10^3/uL (4.0-11.0)
[2024-10-25 06:54] LABS: Alanine Aminotransferase 14 U/L (14-59); Albumin Globulin Ratio 1.3; Albumin Level 3.7 g/dL (3.4-5.0); Alkaline Phosphatase 188 U/L (46-116); Anion Gap 15.1; Aspartate Amino Transferase 22 U/L (15-37); Bilirubin Total 0.4 mg/dL (0.2-1.0); Calcium 10.7 mg/dL (8.5-10.1); Chloride 106 mmol/L (98-107); Estimated GFR (African America >60 (>=60 mL/min/1.73m^2); Estimated GFR (Non-African Ame 50 (>=60 mL/min/1.73m^2); Globulin 2.8 g/dL; Glucose 113 mg/dL (74-106); Potassium 3.1 mmol/L (3.5-5.1); Sodium 145 mmol/L (136-145); Total Protein 6.5 g/dL (6.4-8.2)
--- NOTE | 2024-10-25 08:48 | P.PN_ITS ---
Progress Note: Subjective Subjective Interval history: Patient up awake and alert and, knows where she is at today, very difficult to really focus on her needs though she pulled her IV out Exam Constitutional Vital Signs, click to edit/add: Last Vital Signs Temp 98.1 F 10/25/24 07:33 Pulse 83 10/25/24 07:33 Resp 18 10/25/24 08:38 BP 174/73 H 10/25/24 07:33 Pulse Ox 91 L 10/25/24 07:33 O2 Del Method Nasal Cannula 10/25/24 07:33 O2 Flow Rate 2 10/25/24 07:33 Documenting provider has reviewed patient's vital signs: yes Common normals: no apparent distress Respiratory Common normals: normal respiratory effort and no retractions Cardio Common normals: regular rate and regular rhythm GI Common normals: Normal to inspection, nondistended, normoactive bowel sounds present, soft to palpation and non-tender Extremity Common normals: normal to inspection and full ROM Progress Note: Objective Labs Labs: Short CBC 10/24/24 10/25/24 Range/Units 13:00 05:37 WBC 6.6 8.4 (4.0-11.0) 10^3/uL Hgb 11.4 L 11.6 L (12.0-16.0) g/dL Hct 34.0 L 35.8 L (36.0-48.0) % Plt Count 385 344 (150-450) 10^3/uL BMP 10/25/24 06:35 Sodium 145 Potassium 3.1 L Chloride 106 Carbon Dioxide 27.0 BUN 17.0 Creatinine 1.06 H Glucose 113 H Calcium 10.7 H Liver Function 10/25/24 Range/Units 06:35 Total Bilirubin 0.4 (0.2-1.0) mg/dL AST 22 (15-37) U/L ALT 14 (14-59) U/L Alkaline Phosphatase 188 H (46-116) U/L Albumin 3.7 (3.4-5.0) g/dL Progress Note: A&P Assessment and Plan (1) Abdominal pain: (2) Lumbar spondylosis: (3) Congestive heart failure: (4) COPD (chronic obstructive pulmonary disease): (5) Hypertension: (6) Parkinsons: Plan Admission findings: Sinus tachycardia and uncontrolled hypertension with mild hypoxia, laboratory result are unremarkable other than elevated liver function test, CT scan with dilated biliary ducts, CT findings consistent with enteritis, exam not consistent with enteritis, and symptoms not consistent with enteritis, pain out of proportion to physical findings Acute abdomen-tenderness still resolved, continue with oral antibiotics for the enteritis as we have lost IV access Altered mental status-improved although still confused at times, she is definitely awake and alert Bladder outlet obstruction-catheter removed, continue to monitor Elevated liver function test and elevated intra and extra biliary ducts-improved Hypokalemia-improved Acute UTI-culture pending Hypokalemia-supplement Uncontrolled hypertension and tachycardia-fluid bolus this morning, increased hydralazine General Anxiety disorder continue with home medications-adjust medications for acute altered mental status GERD-IV Protonix while awaiting CTA as outlined above Parkinson's-continue with oral Parkinson's medications Rehab potential: Patient mark she wants to try going home today, told her she needs to ambulate safely with walker and be weaned off of supplemental oxygen and then possible discharge to home later today otherwise she is excellent rehabilitation candidate 1 who is highly motivated for returning to home, if remains stable today likely discharge to rehab tomorrow CODE [id number] Admission status: Patient initially placed in observation bed, no improvement in symptoms overnight, with acute abdominal findings as outlined above, patient will remain n.p.o., medically necessary treatment will span 2 midnights. Inpatient status ? Urinary Catheter Management Urinary Catheter Management Urethral: Cath placed during this visit: yes, but has since been removed by the nurse Urethral indwelling: Yes Insertion date: 10/24/24 Insertion time: 23:30 Removal date: 10/24/24 Removal time: 10:50
[2024-10-25] MEDS: WATER FOR INJECTION, STERILE 20 ML VIAL INJ ×2 (09:23→15:11)
[2024-10-25] MEDS: ZIPRASIDONE MESYLATE 20 MG VIAL IM ×2 (09:23→15:12)
[2024-10-25] MEDS: AMLODIPINE BESYLATE 5 MG TABLET PO (09:24)
[2024-10-25] MEDS: POLYETHYLENE GLYCOL 3350 17 GM POWDER PACKET PO (09:24)
[2024-10-25] MEDS: ASPIRIN 81 MG TAB.CHEW PO (09:24)
[2024-10-25] MEDS: HYDRALAZINE HCL 50 MG TABLET PO ×2 (09:24→19:50)
[2024-10-25] MEDS: OLANZapine 5 MG TABLET PO (09:24)
[2024-10-25] MEDS: POTASSIUM CHLORIDE 10 MEQ ER TABLET 20 MEQ PO ×2 (09:24→19:49)
[2024-10-25] MEDS: ALPRAZOLAM 0.5 MG TABLET PO (09:24)
[2024-10-25] MEDS: ENOXAPARIN SODIUM 40 MG/0.4 ML SYRINGE SUBQ (09:25)
[2024-10-25] MEDS: CIPROFLOXACIN HCL 500 MG TABLET PO ×2 (09:32→19:49)
--- NOTE | 2024-10-25 10:15 | PT.DAILY ---
Physical Therapy Daily Note PT Daily Note/Assess Start: 10/23/24 09:39 Freq: Status: Active Protocol: Document 10/25/24 10:04 LICO (Rec: 10/25/24 10:14 LICO [id number]) Physical Therapy Daily Note/Assessment Time In/Time Out Time In 09:05 Time Out 09:25 Pain In Pain N/A Pain Out Pain N/A Subjective Subjective Pt attempting to exit bed as I arrive in her room - bed alarm sound. Pt demonstrates impulsive behaviors as she's trying to get out of bed unassisted while arm rail is up. Sitting towards foot of bed. Pt verbalizes she needs to use restroom but becomes aggressive when approached. Pt swings her arms at me and cont to attempt to exit bed. Pt is redirected and educated on how to safely transfer from bed to commode. I remain in room until nursing is present to ensure safety of pt. Therapeutic Activity Time Therapeutic Activity 8 Minutes (minutes) Therapeutic Activity 1 Units Therapeutic Activity Treatment Bed Mobility Ability Contact Guard Assist Chair Transfer Contact Guard Assist Ability Therapeutic Activity Sit>stand from EOB CGA for safety. Pt is impulsive and Comments makes sudden movements in attempts to walk around room. Pt pushes walker away that was placed in front of her. Pt is safely directed to sit on couch in room - Alicia. Pt reports needing to use restroom and finally agrees to use commode that is readily available next to her couch. Sit>stand CGA. Cont to refuse to use RW safely. Assistance provided to alexandro sánchez. Sits on commode Alicia to guide her to sit safely. Pt requires assistance for pericare - when she was handed toilet paper she threw it on the ground. Sit>stand CGA. Static standing 30 sec holding walker this time while pericare performed. Pt stand pivots to sit on EOB. Sit>supine SBA. Nursing is present at this time and pt is left under her care. Total Physical Therapy Time Total Therapy 8 Minutes Total Physical 1 Therapy Units Summary Daily Note Summary Impulsive and agitated on this date. Requires Alicia for safe transfers/guiding her to redirect her to sit on couch/commode.
[2024-10-25 12:12] LABS: A. calcoaceticus-baumannii Cpx NOT DETECTED (NOT DETECTE); Bacteroides fragilis NOT DETECTED (NOT DETECTE); Candida albicans NOT DETECTED (NOT DETECTE); Candida auris NOT DETECTED (NOT DETECTE); Candida glabrata NOT DETECTED (NOT DETECTE); Candida krusei NOT DETECTED (NOT DETECTE); Candida parapsilosis NOT DETECTED (NOT DETECTE); Candida tropicalis NOT DETECTED (NOT DETECTE); Cryptococcus neoformans/gattii NOT DETECTED (NOT DETECTE); Enterobacter cloacae complex NOT DETECTED (NOT DETECTE); Enterobacterales NOT DETECTED (NOT DETECTE); Enterococcus faecalis NOT DETECTED (NOT DETECTE); Enterococcus faecium NOT DETECTED (NOT DETECTE); Haemophilus influenzae NOT DETECTED (NOT DETECTE); Klebsiella aerogenes NOT DETECTED (NOT DETECTE); Klebsiella pneumoniae group NOT DETECTED (NOT DETECTE); Listeria monocytogenes NOT DETECTED (NOT DETECTE); Neisseria meningitidis NOT DETECTED (NOT DETECTE); Proteus spp. NOT DETECTED (NOT DETECTE); Pseudomonas aeruginosa NOT DETECTED (NOT DETECTE); Salmonella spp. NOT DETECTED (NOT DETECTE); Serratia marcescens NOT DETECTED (NOT DETECTE); Staphylococcus epidermidis NOT DETECTED (NOT DETECTE); Staphylococcus lugdunensis NOT DETECTED (NOT DETECTE); Staphylococcus spp. NOT DETECTED (NOT DETECTE); Stenotrophomonas maltophilia NOT DETECTED (NOT DETECTE); Streptococcus agalactiae NOT DETECTED (NOT DETECTE); Streptococcus pneumoniae NOT DETECTED (NOT DETECTE); Streptococcus pyogenes NOT DETECTED (NOT DETECTE); Streptococcus spp. NOT DETECTED (NOT DETECTE)
[2024-10-25 14:16] LABS: Source BLOOD
[2024-10-25] MEDS: METRONIDAZOLE 250 MG TABLET 500 MG PO ×2 (14:29→19:49)
[2024-10-25] MEDS: SUCRALFATE 1 GM TABLET PO ×2 (14:29→19:49)
[2024-10-25] MEDS: ROPINIROLE HCL 0.25 MG TABLET 0.5 MG PO (19:49)
[2024-10-25] MEDS: ALPRAZOLAM 1 MG TABLET 1.5 MG PO (19:50)
[2024-10-26] VITALS (12 sets, daily range): BP systolic 158–183; BP diastolic 84–99; PULSE 89–125; TEMP 36.7–37.6; O2SAT 90–93
[2024-10-26 06:33] LABS: Hematocrit 37.2 % (36.0-48.0); Hemoglobin 12.5 g/dL (12.0-16.0); Mean Corpuscular HGB Conc 33.6 g/dL (29.9-35.2); Mean Corpuscular Hemoglobin 31.6 pg (26.7-34.0); Mean Corpuscular Volume 94.2 fL (81.0-99.0); Mean Platelet Volume 11.6 fL (9.5-13.5); Platelet Count 376 10^3/uL (150-450); Red Blood Count 3.95 10^6/uL (4.20-5.40); Red Cell Distribution Width 15.3 % (11.0-15.0); White Blood Count 10.8 10^3/uL (4.0-11.0)
[2024-10-26] MEDS: SUCRALFATE 1 GM TABLET PO ×4 (06:37→21:32)
[2024-10-26] MEDS: PANTOPRAZOLE SODIUM 40 MG TABLET.DR PO (06:37)
[2024-10-26] MEDS: METRONIDAZOLE 250 MG TABLET 500 MG PO ×2 (06:37→15:10)
[2024-10-26] MEDS: AMANTADINE HCL 100 MG CAPSULE PO ×2 (06:37→11:25)
[2024-10-26] MEDS: CARBIDOPA/LEVODOPA CR 25-100 MG TABLET 1 TAB PO ×3 (06:37→16:22)
[2024-10-26] MEDS: ALPRAZOLAM 0.5 MG TABLET PO ×2 (06:37→16:17)
[2024-10-26] MEDS: HYOSCYAMINE SULFATE 0.125 MG TAB.SUBL 0.25 MG SL ×4 (06:38→21:33)
[2024-10-26 06:46] LABS: Alanine Aminotransferase 10 U/L (14-59); Albumin Globulin Ratio 1.3; Albumin Level 3.7 g/dL (3.4-5.0); Alkaline Phosphatase 181 U/L (46-116); Anion Gap 13.3; Aspartate Amino Transferase 38 U/L (15-37); BUN Creatinine Ratio 24.3; Bilirubin Total 0.6 mg/dL (0.2-1.0); Calcium 11.2 mg/dL (8.5-10.1); Carbon Dioxide 29.1 mmol/L (21.0-32.0); Chloride 106 mmol/L (98-107); Estimated GFR (African America >60 (>=60 mL/min/1.73m^2); Estimated GFR (Non-African Ame 52 (>=60 mL/min/1.73m^2); Globulin 2.9 g/dL; Glucose 90 mg/dL (74-106); Potassium 3.4 mmol/L (3.5-5.1); Sodium 145 mmol/L (136-145); Total Protein 6.6 g/dL (6.4-8.2)
[2024-10-26 06:56] LABS: Lymphocytes Absolute Manual 1.18 10^3/uL (1.20-3.80); Monocytes Absolute Manual 1.51 10^3/uL (0.30-0.80); Segmented Neut Absolute Manual 7.99 10^3/uL (1.4-6.5)
[2024-10-26] MEDS: POLYETHYLENE GLYCOL 3350 17 GM POWDER PACKET PO (08:34)
[2024-10-26] MEDS: POTASSIUM CHLORIDE 10 MEQ ER TABLET 20 MEQ PO ×2 (08:35→21:33)
[2024-10-26] MEDS: CIPROFLOXACIN HCL 500 MG TABLET PO (08:35)
[2024-10-26] MEDS: ENOXAPARIN SODIUM 40 MG/0.4 ML SYRINGE SUBQ ×2 (08:35→21:31)
[2024-10-26] MEDS: AMLODIPINE BESYLATE 5 MG TABLET PO (08:35)
[2024-10-26] MEDS: HYDRALAZINE HCL 50 MG TABLET PO ×2 (08:35→21:32)
[2024-10-26] MEDS: ACETAMINOPHEN 500 MG TABLET 1000 MG PO ×2 (08:35→15:10)
[2024-10-26] MEDS: OLANZapine 5 MG TABLET PO (08:35)
[2024-10-26] MEDS: ASPIRIN 81 MG TAB.CHEW PO (08:35)
--- NOTE | 2024-10-26 09:01 | P.PN_ITS ---
Progress Note: Subjective Subjective Interval history: Patient is awake, still confused, she did not recall my name, was able to reorient some, her memory really is not too bad as she recalls having the rebound tenderness early in the stay Exam Constitutional Vital Signs, click to edit/add: Last Vital Signs Temp 98.5 F 10/26/24 07:59 Pulse 116 H 10/26/24 07:59 Resp 18 10/26/24 08:46 BP 178/99 H 10/26/24 07:59 Pulse Ox 90 L 10/26/24 07:59 O2 Del Method Nasal Cannula 10/26/24 07:59 O2 Flow Rate 2 10/26/24 07:59 Documenting provider has reviewed patient's vital signs: yes Common normals: apparent distress (Anxious) Respiratory Common normals: normal respiratory effort and no retractions Cardio Common normals: regular rate and regular rhythm GI Common normals: Normal to inspection, nondistended, normoactive bowel sounds present, soft to palpation and non-tender Extremity Common normals: normal to inspection, full ROM and normal capillary refill Neuro Common normals: CN's II-XII intact bilaterally, moves all extremities and no focal motor deficits; not oriented x3 Progress Note: Objective Labs Labs: Short CBC 10/26/24 Range/Units 05:37 WBC 10.8 (4.0-11.0) 10^3/uL Hgb 12.5 (12.0-16.0) g/dL Hct 37.2 (36.0-48.0) % Plt Count 376 (150-450) 10^3/uL BMP 10/26/24 05:37 Sodium 145 Potassium 3.4 L Chloride 106 Carbon Dioxide 29.1 BUN 25.0 H Creatinine 1.03 H Glucose 90 Calcium 11.2 H Liver Function 10/26/24 Range/Units 05:37 Total Bilirubin 0.6 (0.2-1.0) mg/dL AST 38 H (15-37) U/L ALT 10 L (14-59) U/L Alkaline Phosphatase 181 H (46-116) U/L Albumin 3.7 (3.4-5.0) g/dL Progress Note: A&P Assessment and Plan (1) Abdominal pain: (2) Lumbar spondylosis: (3) Congestive heart failure: (4) COPD (chronic obstructive pulmonary disease): (5) Hypertension: (6) Parkinsons: Plan Admission findings: Sinus tachycardia and uncontrolled hypertension with mild hypoxia, laboratory result are unremarkable other than elevated liver function test, CT scan with dilated biliary ducts, CT findings consistent with enteritis, exam not consistent with enteritis, and symptoms not consistent with enteritis, pain out of proportion to physical findings Acute abdomen-tenderness still resolved, acute abdominal series consistent with possible ileus, patient without emesis despite taking oral medications, working on diet today, checking on x-ray, consider repeat CT scan, but no emesis and no abdominal tenderness Altered mental status-worse again today, has not slept at least 48 hours, will adjust medications at nighttime, consult to teleneurology for altered mental status Bladder outlet obstruction-catheter removed, continue to monitor Elevated liver function test and elevated intra and extra biliary ducts- improving Hypokalemia-improved Acute UTI-culture pending-check on later today Uncontrolled hypertension and tachycardia-stable, off IV fluids, no IV access General Anxiety disorder continue with home medications-consult to teleneurology for altered mental status and Parkinson's patient GERD-on oral Protonix Parkinson's-continue with oral Parkinson's medications-see above Rehab potential: Patient mark she wants to try going home today, told her she needs to ambulate safely with walker and be weaned off of supplemental oxygen and then possible discharge to home later today otherwise she is excellent rehabilitation candidate 1 who is highly motivated for returning to home, if remains stable today likely discharge to rehab tomorrow CODE [id number] Admission status: Patient initially placed in observation bed, no improvement in symptoms overnight, with acute abdominal findings as outlined above, patient will remain n.p.o., medically necessary treatment will span 2 midnights. Inpatient status-unable to send to rehab due to altered mental status ? Urinary Catheter Management Urinary Catheter Management Urethral: Cath placed during this visit: yes, but has since been removed by the nurse Urethral indwelling: Yes Insertion date: 10/24/24 Insertion time: 23:30 Removal date: 10/24/24 Removal time: 10:50
[2024-10-26] MEDS: ENSURE HP 237 ML LIQUID PO ×2 (10:04→21:34)
--- NOTE | 2024-10-26 12:34 | ECG_ITS ---
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 Measurements Intervals [place] Rate: 123 P: NM: QRS: 5 QRSD: 90 T: 53 QT: 284 QTc: 406 Interpretive Statements Sinus rhythm with frequent premature supraventricular complexes and a run of atrial tachycardia MINIMAL VOLTAGE CRITERIA FOR LVH, CONSIDER NORMAL VARIANT [MEETS CRITERIA IN ONE OF: R(aVL), S(V1), R(V5), R(V5/V6)+S(V1)] SEPTAL MYOCARDIAL INFARCTION [40+ ms Q WAVE IN V1/V2], OF INDETERMINATE AGE Compared to ECG 10/22/2024 20:47:35 Premature supraventricular complexes are now present Atrial tachycardia is now present Electronically Signed On 10-26-2024 17:16:25 EDT by ANDREW MARISCAL M.D.
[2024-10-26 14:29] LABS: Ammonia <10 umol/L (11-32)
[2024-10-26 14:36] LABS: Lactate/Lactic Acid 1.2 mmol/L (0.4-2.0)
[2024-10-26 14:37] LABS: Anion Gap 11.4; BUN Creatinine Ratio 27.3; Calcium 11.4 mg/dL (8.5-10.1); Chloride 108 mmol/L (98-107); Estimated GFR (African America 52 (>=60 mL/min/1.73m^2); Estimated GFR (Non-African Ame 43 (>=60 mL/min/1.73m^2); Glucose 95 mg/dL (74-106); Magnesium 2.4 mg/dL (1.8-2.4); Potassium 3.4 mmol/L (3.5-5.1); Sodium 144 mmol/L (136-145)
[2024-10-26 14:40] LABS: Troponin I High Sensitivity 194.6 pg/mL (4.0-51.3)
[2024-10-26] MEDS: 0.9 % SODIUM CHLORIDE 1,000 ML 75 ML IV (16:09)
[2024-10-26] MEDS: 0.9 % SODIUM CHLORIDE 500 ML 250 ML IV (16:10)
[2024-10-26] MEDS: MAGNESIUM HYDROXIDE 2,400 MG/10 ML ORAL.SUSP 2400 MG PO (16:22)
[2024-10-26] MEDS: PIPERACILLIN SODIUM/TAZOBACTAM 3.375 GM in 0.9 % SODIUM CHLORIDE 50 ML IV ×2 (16:22→23:15)
[2024-10-26 16:39] LABS: Troponin I High Sensitivity 191.3 pg/mL (4.0-51.3)
[2024-10-26 16:50] LABS: Bilirubin Urine NEGATIVE (NEGATIVE); Blood Urine MODERATE (NEGATIVE); Clarity Urine CLEAR (CLEAR); Color Urine LT. YELLOW (YELLOW); Glucose Urine UA NEGATIVE (NEGATIVE); Ketones Urine 15 mg/dL (NEGATIVE); Leukocyte Esterase Urine NEGATIVE (NEGATIVE); Nitrite Urine NEGATIVE (NEGATIVE); Protein Urine 30 mg/dL (NEG/TRACE); Specific Gravity Urine 1.015 (1.005-1.025); Urobilinogen Urine 0.2 EU/dL (0.2-1.0)
[2024-10-26] MEDS: METOPROLOL TARTRATE 25 MG TABLET PO ×2 (18:00→21:31)
[2024-10-26 19:07] LABS: Troponin I High Sensitivity 188.6 pg/mL (4.0-51.3)
[2024-10-26] MEDS: ALPRAZOLAM 1 MG TABLET 1.5 MG PO (21:31)
[2024-10-26] MEDS: QUETIAPINE FUMARATE 25 MG TABLET 50 MG PO (21:32)
[2024-10-26] MEDS: ROPINIROLE HCL 0.25 MG TABLET 0.5 MG PO (21:32)
[2024-10-26] MEDS: LACTULOSE 10 GM/15 ML BOTTLE 237 ML 30 GM PO (21:33)
[2024-10-26] MEDS: IPRATROPIUM/ALBUTEROL SULFATE 3 ML AMPUL.NEB IH (22:00)
[2024-10-27] VITALS (32 sets, daily range): BP systolic 137–182; BP diastolic 60–87; PULSE 72–109; TEMP 36.3–37.2; O2SAT 80–98
[2024-10-27 01:21] LABS: Glucometer 96 mg/dL (74-106)
[2024-10-27] MEDS: IPRATROPIUM/ALBUTEROL SULFATE 3 ML AMPUL.NEB IH ×4 (05:17→22:27)
[2024-10-27] MEDS: 0.9 % SODIUM CHLORIDE 1,000 ML 75 ML IV (05:51)
--- NOTE | 2024-10-27 05:52 | P.PN_ITS ---
Progress Note: Subjective Subjective Interval history: Patient sedated this morning, does awaken difficult to understand speech Exam Constitutional Vital Signs, click to edit/add: Last Vital Signs Temp 98.9 F 10/27/24 05:35 Pulse 75 10/27/24 05:20 Resp 18 10/27/24 05:35 BP 166/73 H 10/27/24 05:35 Pulse Ox 90 L 10/27/24 05:35 O2 Del Method Nasal Cannula 10/27/24 05:35 O2 Flow Rate 2 10/27/24 05:35 Documenting provider has reviewed patient's vital signs: yes Common normals: no apparent distress (Sedated) Respiratory Common normals: normal respiratory effort and no retractions Auscultation: rhonchi Cardio Common normals: no murmurs; irregular rate and irregular rhythm Rate: tachycardic Rhythm: abnormal rhythm Neuro Common normals: CN's II-XII intact bilaterally and moves all extremities; not oriented x3 (Sedated) Progress Note: Objective Labs Labs: Short CBC 10/26/24 Range/Units 05:37 WBC 10.8 (4.0-11.0) 10^3/uL Hgb 12.5 (12.0-16.0) g/dL Hct 37.2 (36.0-48.0) % Plt Count 376 (150-450) 10^3/uL BMP 10/26/24 10/26/24 05:37 14:12 Sodium 145 144 Potassium 3.4 L 3.4 L Chloride 106 108 H Carbon Dioxide 29.1 28.0 BUN 25.0 H 33.0 H Creatinine 1.03 H 1.21 H Glucose 90 95 Calcium 11.2 H 11.4 H Liver Function 10/26/24 Range/Units 05:37 Total Bilirubin 0.6 (0.2-1.0) mg/dL AST 38 H (15-37) U/L ALT 10 L (14-59) U/L Alkaline Phosphatase 181 H (46-116) U/L Albumin 3.7 (3.4-5.0) g/dL Urine 10/26/24 Range/Units 16:10 Urine Color Lt. yellow (YELLOW) Urine Clarity Clear (CLEAR) Urine pH 6.0 (5.0-9.0) Ur Specific [place] 1.015 (1.005-1.025) Urine Protein 30 A (NEG/TRACE) mg/dL Urine Glucose (UA) Negative (NEGATIVE) mg/dL Progress Note: A&P Assessment and Plan (1) Abdominal pain: (2) Lumbar spondylosis: (3) Congestive heart failure: (4) COPD (chronic obstructive pulmonary disease): (5) Hypertension: (6) Parkinsons: Plan Admission findings: Sinus tachycardia and uncontrolled hypertension with mild hypoxia, laboratory result are unremarkable other than elevated liver function test, CT scan with dilated biliary ducts, CT findings consistent with enteritis, exam not consistent with enteritis, and symptoms not consistent with enteritis, pain out of proportion to physical findings Acute abdomen due to colitis and now with possible ileus and constipation- tenderness has been improving over the last several days, acute abdominal series is pending Acute atrial fibrillation with rapid ventricular response-on Lovenox, adjusted dose yesterday, acute NSTEMI with elevated troponin type II-consult cardiology, echocardiogram pending, converted to normal sinus after but this morning appears to be back in A-fib Altered mental status-telemetry neurovisit pending, MRI scan brain pending, sedated this morning, likely combination of the Seroquel and benzodiazepine, cut back on Seroquel, patient had not slept for several days prior Bladder outlet obstruction-catheter placed to monitor fluid output Acute hypoxia-check chest x-ray, cut back on fluids to saline lock and 1 dose of IV Lasix, chest x-ray saudingFREDDIE pending Elevated liver function test and elevated intra and extra biliary ducts- improving continues Hypokalemia-improved Hypernatremia-changing IV fluids but then changed to saline lock, repeat CHEM 8 at 10 AM Acute UTI-culture pending-check on later today again Uncontrolled hypertension and tachycardia-stable, off IV fluids, no IV access General Anxiety disorder continue with home medications-consult to teleneurology for altered mental status and Parkinson's patient-this is pending GERD-on oral Protonix Parkinson's-continue with oral Parkinson's medications-see above Severe protein calorie malnutrition-diet supplement, significant muscle wasting Rehab potential: Patient mark she wants to try going home today, told her she needs to ambulate safely with walker and be weaned off of supplemental oxygen and then possible discharge to home later today otherwise she is excellent rehabilitation candidate 1 who is highly motivated for returning to home, if remains stable today likely discharge to rehab tomorrow CODE [id number] Admission status: Patient initially placed in observation bed, no improvement in symptoms overnight, with acute abdominal findings as outlined above, patient will remain n.p.o., medically necessary treatment will span 2 midnights. Inpatient status-unable to send to rehab due to altered mental status ? Urinary Catheter Management Urinary Catheter Management Urethral: Cath placed during this visit: yes, but has since been removed by the nurse Urethral indwelling: Yes Insertion date: 10/24/24 Insertion time: 23:30 Removal date: 10/24/24 Removal time: 10:50
[2024-10-27 05:54] LABS: Basophils Percent Auto 0.3 % (0.2-2.0); Eosinophils Percent Auto 0.1 % (0.9-7.0); Hematocrit 38.5 % (36.0-48.0); Immature Granulocytes Abs Auto 0.02 10^3/uL (0.00-0.03); Immature Granulocytes Pct Auto 0.2 % (0.0-0.5); Lymphocytes Absolute Auto 0.9 10^3/uL (1.2-3.8); Lymphocytes Percent Auto 10.3 % (20.5-60.0); Mean Corpuscular HGB Conc 33.8 g/dL (29.9-35.2); Mean Corpuscular Volume 94.8 fL (81.0-99.0); Mean Platelet Volume 11.2 fL (9.5-13.5); Monocytes Absolute Auto 1.2 10^3/uL (0.3-0.8); Neutrophils Absolute Auto 6.9 10^3/uL (1.4-6.5); Neutrophils Percent Auto 76.1 % (43.0-75.0); Platelet Count 377 10^3/uL (150-450); Red Blood Count 4.06 10^6/uL (4.20-5.40); Red Cell Distribution Width 15.5 % (11.0-15.0); White Blood Count 9.1 10^3/uL (4.0-11.0)
--- NOTE | 2024-10-27 06:00 | MR_ITS ---
The [address] [address] Patient Name: NANCY KHAN MRN: [id number] date: 1945 Sex: F Assigned Patient Location: [place] Current Patient Location: [place] Accession/Order Number: [id number] Exam Date: 10/27/2024 12:19 Report Date: 10/27/2024 12:21 At the request of: RODRICK SAMS MD Procedure: MR head/brain wo con MR head/brain wo con 10/27/2024 11:59 AM SIGN AND SYMPTOMS: ^AMS, Afib PROTOCOL: Multiplanar multisequence MR images of the brain without IV contrast COMPARISON: 10/23/2024 FINDINGS: Motion artifact degrades image quality. Extra axial spaces: There is age-related cortical atrophy. Hemorrhage: None. Ventricular system: Within normal limits. Basal cisterns: Within normal limits and not effaced. Cerebral parenchyma: Periventricular and subcortical white matter T2 and T2 FLAIR hyperintense signal is noted consistent with chronic microvascular ischemic change. No evidence of acute or subacute ischemia. Midline shift: None.. Cerebellum: Within normal limits. Brainstem: Within normal limits. OTHER: Calvarium: Normal marrow signal. Vascular system: Satisfactory flow voids within the anterior and posterior circulation. Visualized Paranasal sinuses: Within normal limits. Visualized Orbits: Within normal limits. Visualized upper cervical spine: Within normal limits. Sella and skull base: Within normal limits. MR/MR head/brain wo con IMPRESSION: No evidence of acute or subacute ischemia. 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 Impression dictated by: Caleb Meyer M.D. 10/27/2024 12:21 PM Dictation Location: [place] [address] Electronically authenticated by: [id number] Y Date: 10/27/2024 12:21
[2024-10-27 06:02] LABS: Ammonia <10 umol/L (11-32)
[2024-10-27 06:13] LABS: Alanine Aminotransferase 9 U/L (14-59); Albumin Globulin Ratio 1.3; Albumin Level 3.5 g/dL (3.4-5.0); Alkaline Phosphatase 168 U/L (46-116); Anion Gap 13.4; Aspartate Amino Transferase 29 U/L (15-37); BUN Creatinine Ratio 30.6; Bilirubin Total 0.6 mg/dL (0.2-1.0); Calcium 11.1 mg/dL (8.5-10.1); Carbon Dioxide 28.9 mmol/L (21.0-32.0); Chloride 113 mmol/L (98-107); Estimated GFR (African America 52 (>=60 mL/min/1.73m^2); Estimated GFR (Non-African Ame 43 (>=60 mL/min/1.73m^2); Globulin 2.7 g/dL; Glucose 102 mg/dL (74-106); Potassium 3.3 mmol/L (3.5-5.1); Sodium 152 mmol/L (136-145); Total Protein 6.2 g/dL (6.4-8.2)
[2024-10-27 06:28] LABS: Troponin I High Sensitivity 152.7 pg/mL (4.0-51.3)
--- NOTE | 2024-10-27 07:06 | CA_ITS ---
Patient Name: NANCY KHAN MR#: [id number] : 1945 Exam Date: 10/27/2024 Ordering Doctor: DR RODRICK SAMS . ECHOCARDIOGRAM REPORT PROCEDURE: CA ECHO DOPPLER COMPLETE INDICATIONS: a fib COMPARISON: None. DESCRIPTION: COMPLETE ECHOCARDIOGRAM Real-time transthoracic echocardiography with 2D, M-mode, spectral and color flow Doppler performed. QUALITY: Technical quality was good. LEFT VENTRICLE: Normal chamber size. Mild concentric left ventricular hypertrophy. Global left ventricular systolic function is normal. LV EF: Calculated left ventricular ejection fraction is 62%. Unchanged from previous study of 06/02/23. DIASTOLIC: Diastolic function is indeterminate. ATRIAL SEPTUM: LEFT ATRIUM: Moderate dilatation. RIGHT ATRIUM: Normal chamber size. RIGHT VENTRICLE: Normal chamber size. Normal right ventricular systolic function. TRICUSPID VALVE: Normal mobility and thickness. No stenosis with mild regurgitation. Moderate pulmonary hypertension. RVSP 46 mmHg MITRAL VALVE: Normal mobility and thickness. No evidence of mitral valve stenosis. There is no mitral annular calcification. Mild mitral regurgitation. AORTIC VALVE: Normal trileaflet appearance. Thickened aortic valve. Normal leaflet mobility. No evidence of aortic valve stenosis. No aortic regurgitation. AORTIC ROOT: Normal diameter and appearance, measuring 3.2 cm. PULMONIC VALVE: Normal thickness and mobility. No stenosis. No regurgitation. PERICARDIUM: No evidence of pericardial effusion. IVC: Collapses with inspirations. Normal size. PLEURA: CONCLUSION: 1. Mild concentric left ventricular hypertrophy with normal systolic function. Estimated LVEF is 60 to 65%. 2. Normal right ventricular size and systolic function. 3. Mild mitral and tricuspid regurgitation. 4. Moderately dilated left atrium. 5. Moderately elevated right-sided pressures. RVSP is 46 mmHg. Adult Echocardiography Procedure Report Left Ventricle LVEDD (3.7 - 5.6 cm): 4.12 cm LVESD (2.2 - 4.0 cm): 3.01 cm LVIVS thickness (0.6 - 1.2 cm): 1.37 cm LVPW thickness (0.5 - 1.0 cm): 1.23 cm e': 0.10 m/s E - e': 3.70 LVOT Max Gradient: 2.46 mm[Hg] LVOT Area (cm2): 0.78 m/s Peak Velocity (LVOT): 0.78 m/s Mean Velocity (LVOT): 0.47 m/s LVOT Diameter 2.09 cm Left Ventricular Ejection Fraction: 61.82 % Left Atrium LA Volume Index (2D A2C): 48.94 ml/m2 Left Atrium Systolic Dimension: 3.14 cm Mitral Valve MV E to A Ratio: 0.54 Mitral Valve A-Wave Peak Velocity: 0.70 m/s Mitral Valve E-Wave Peak Velocity: 0.38 m/s Right Ventricle RV Internal Diastolic Dimension: 3.15 cm Aorta AO Root Diam: 3.21 cm Aortic Valve AoV Area (Peak Noe): 1.68 cm2, 1.68 cm2 AoV Area (VTI): 1.72 cm2, 1.72 cm2 Peak Velocity(Antegrade Flow): 1.59 m/s Peak Gradient(Antegrade Flow): 10.14 mm[Hg] Mean Velocity(Antegrade Flow): 1.01 m/s Mean Gradient(Antegrade Flow): 4.78 mm[Hg] Velocity Time Integral: 29.06 cm Tricuspid Valve Peak Velocity (Regurgitant Flow): 2.51 m/s, 3.26 m/s, 3.08 m/s, 3.16 m/s, 2.88 m/s Pulmonic Valve Peak Velocity: 1.19 m/s Peak Gradient: 6.23 mm[Hg], 5.20 mm[Hg] Right Atrium Right Atrium Systolic Pressure: 20.41 ml, 20.41 ml Dictated by: Brian Pulido M.D. on 10/27/2024 at 17:59 Approved by: Brian Pulido M.D. on 10/27/2024 at 18:03
--- NOTE | 2024-10-27 07:12 | ECG_ITS ---
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 Measurements Intervals [place] Rate: 96 P: 11 UT: 142 QRS: 4 QRSD: 89 T: 62 QT: 357 QTc: 453 Interpretive Statements SINUS RHYTHM WITH FREQUENT SUPRAVENTRICULAR PREMATURE COMPLEXES MINIMAL VOLTAGE CRITERIA FOR LVH, CONSIDER NORMAL VARIANT [MEETS CRITERIA IN ONE OF: R(aVL), S(V1), R(V5), R(V5/V6)+S(V1)] SEPTAL MYOCARDIAL INFARCTION [40+ ms Q WAVE IN V1/V2], OF INDETERMINATE AGE Compared to ECG 10/26/2024 13:25:54 No significant changes Electronically Signed On 10-27-2024 17:51:52 EDT by ANDREW MARISCAL M.D.
--- NOTE | 2024-10-27 08:17 | CM.NOTE ---
Rounds made with Dr. Leary. Remains confused at this time. Consults ordered.
[2024-10-27 09:19] LABS: Allen Test POSITIVE (POSITIVE); Base Excess ABG 3.9 mmol/L (-2.0-2.0); HCO3 ABG 27.9 mmol/L (22.0-26.0); Liters per Minute 4; O2 Mode NASAL CANNULA; Oxygen Saturation ABG 89.8 %; pH ABG 7.452 (7.350-7.450)
[2024-10-27 09:20] LABS: Puncture Site RT RADIAL
[2024-10-27 09:22] LABS: PO2 ABG 54.8 mmHg (80.0-100.0)
--- NOTE | 2024-10-27 09:33 | XR_ITS ---
The [address] [address] Patient Name: NANCY KHAN MRN: [id number] date: 1945 Sex: F Assigned Patient Location: MS Current Patient Location: [place] Accession/Order Number: [id number] Exam Date: 10/27/2024 09:59 Report Date: 10/27/2024 10:01 At the request of: RODRICK SAMS MD Procedure: XR acute abdomen series XR acute abdomen series 10/27/2024 9:33 AM SIGNS AND SYMPTOMS: ^ileus, constipation, atelectatis follow up ^N PROTOCOL: Frontal radiograph of the chest with frontal radiographs of the abdomen and pelvis COMPARISON: 10/26/2024 FINDINGS: The trachea is midline. Atherosclerotic changes are noted in the thoracic aorta. The heart and mediastinal structures are within normal limits. The lung parenchyma is clear. The bony thorax is intact. Degenerative changes are noted in the shoulders and thoracic spine. Mildly distended loops of air-filled bowel are noted with a moderate amount stool in the colon similar to the prior exam. No radiographic evidence of free air. XR/XR acute abdomen series IMPRESSION: No acute cardiopulmonary pathology. Mildly distended loops of air-filled bowel are noted with a moderate amount stool in the colon similar to the prior exam. No radiographic evidence of free air. Impression dictated by: Caelb Meyer M.D. 10/27/2024 10:01 AM Dictation Location: [place] [address] Electronically authenticated by: [id number] Y Date: 10/27/2024 10:01
--- NOTE | 2024-10-27 09:34 | PT.DAILY ---
Physical Therapy Daily Note PT Daily Note/Assess Start: 10/23/24 09:39 Freq: Status: Active Protocol: Document 10/27/24 09:28 LICO (Rec: 10/27/24 09:34 LICO [id number]) Physical Therapy Daily Note/Assessment Time In/Time Out Time In 09:10 Time Out 09:18 Pain In Pain N/A Pain Out Pain N/A Subjective Subjective Nursing OK'd session. Pt supine upon arrival. Lethargic . Unable to respond to questions appropriately. Therapeutic Exercise Time Therapeutic Exercise 8 Minutes (minutes) Therapeutic Exercise 1 Units Therapeutic Exercise Treatment Therapeutic Exercise PROM to bilat LE's to maintain mobility and improve Treatment circulation. Radiology enters room at this time for xrays. Left under their care. Total Physical Therapy Time Total Therapy 8 Minutes Total Physical 1 Therapy Units Summary Daily Note Summary Decline in medical status. PROM complete today - little to no response to treatment.
[2024-10-27] MEDS: PIPERACILLIN SODIUM/TAZOBACTAM 3.375 GM in 0.9 % SODIUM CHLORIDE 50 ML IV ×3 (09:55→23:36)
[2024-10-27] MEDS: FUROSEMIDE 40 MG/4 ML VIAL IVP (09:57)
[2024-10-27] MEDS: ENOXAPARIN SODIUM 40 MG/0.4 ML SYRINGE SUBQ (09:57)
[2024-10-27] MEDS: HYDRALAZINE HCL 50 MG TABLET PO ×2 (10:00→21:19)
[2024-10-27] MEDS: ASPIRIN 81 MG TAB.CHEW PO (10:00)
[2024-10-27] MEDS: METOPROLOL TARTRATE 50 MG TABLET PO ×2 (10:00→21:18)
[2024-10-27] MEDS: POTASSIUM CHLORIDE 10 MEQ ER TABLET 20 MEQ PO ×2 (10:00→21:19)
[2024-10-27] MEDS: AMLODIPINE BESYLATE 5 MG TABLET PO (10:00)
[2024-10-27] MEDS: POLYETHYLENE GLYCOL 3350 17 GM POWDER PACKET PO (10:00)
[2024-10-27 10:22] LABS: Anion Gap 14.7; BUN Creatinine Ratio 31.6; Calcium 10.9 mg/dL (8.5-10.1); Carbon Dioxide 27.6 mmol/L (21.0-32.0); Chloride 113 mmol/L (98-107); Estimated GFR (African America 54 (>=60 mL/min/1.73m^2); Estimated GFR (Non-African Ame 45 (>=60 mL/min/1.73m^2); Glucose 102 mg/dL (74-106); Potassium 3.3 mmol/L (3.5-5.1); Sodium 152 mmol/L (136-145)
--- NOTE | 2024-10-27 11:19 | SWNOTE1 ---
VANESSA sent updates to Teodora at [facility]. Updates included physician notes from weekend PT note from weekend, labs, vitals, and nursing notes.
--- NOTE | 2024-10-27 13:09 | SWNOTE1 ---
SW sent PT note, MRI, and other diagnostic imaging to Teodora at [facility].
[2024-10-27] MEDS: CARBIDOPA/LEVODOPA CR 25-100 MG TABLET 1 TAB PO ×2 (13:22→16:36)
[2024-10-27] MEDS: HYOSCYAMINE SULFATE 0.125 MG TAB.SUBL 0.25 MG SL ×2 (13:22→17:23)
[2024-10-27] MEDS: LACTULOSE 10 GM/15 ML BOTTLE 237 ML 30 GM PO ×3 (13:23→21:15)
[2024-10-27] MEDS: MAGNESIUM HYDROXIDE 2,400 MG/10 ML ORAL.SUSP 4800 MG PO ×2 (13:23→20:20)
[2024-10-27] MEDS: SUCRALFATE 1 GM TABLET PO ×3 (13:23→21:15)
[2024-10-27] MEDS: AMANTADINE HCL 100 MG CAPSULE PO (13:23)
[2024-10-27] MEDS: POTASSIUM CHLORIDE 40 MEQ in 0.9 % SODIUM CHLORIDE 250 ML 67.5 MEQ IV (13:56)
--- NOTE | 2024-10-27 19:23 | PM.CACN ---
History of Present Illness History of Present Illness Consult date: 10/27/24 Requesting physician: Kavon Leary Consult reason: atrial fibrillation Chief complaint: ABDOMINAL PAIN, ENTERITIS Narrative: This is a 79-year-old woman with prior history of hypertension, hyperlipidemia, COPD and Parkinson's. She is admitted with abdominal pain and is found to have severe constipation and is being treated for that. During the course of the admission she was found to have irregular heart rate on EKG raising the suspicion of atrial fibrillation. I am consulted because of that. Currently she is being treated with laxatives and had a small bowel movement today first time in several days. She denies chest pain and does not feel palpitations. Her breathing at rest is okay and she is maintained on oxygen. She has no significant leg edema. She was noted to have mild elevation of high-sensitivity troponin. Her BNP was within normal limits. Her echocardiogram today showed normal ventricular function with no significant valvular dysfunction and mildly elevated right-sided pressures. Review of her ECG and rhythm strips show sinus rhythm with PACs and 1 run of atrial tachycardia. Telemetry strip today showed atrial fibrillation. Review of Systems ROS Status of ROS 10 or more systems reviewed and unremarkable except as noted in history and below Cardiovascular Reports: edema and shortness of breath with exertion; Denies: chest pain or palpitations Respiratory Reports: shortness of breath Gastrointestinal Reports: abdominal pain and constipation [facility] Medical History (Updated 10/27/24 @ 19:39 by ANDREW MARISCAL) Visit for PT (physical therapy) Right wrist fracture ?S62.101A - Fracture of unspecified carpal bone, right wrist, initial encounter for closed fracture (ICD-10) Hypoxia ?R09.02 - Hypoxemia (ICD-10) Congestive heart failure ?I50.9 - Heart failure, unspecified (ICD-10) Weakness generalized ?R53.1 - Weakness (ICD-10) Acute UTI ?N39.0 - Urinary tract infection, site not specified (ICD-10) Acute diarrhea ?R19.7 - Diarrhea, unspecified (ICD-10) Acute kidney injury ?N17.9 - Acute kidney failure, unspecified (ICD-10) Hiatal hernia ?K44.9 - Diaphragmatic hernia without obstruction or gangrene (ICD-10) COPD (chronic obstructive pulmonary disease) ?J44.9 - Chronic obstructive pulmonary disease, unspecified (ICD-10) Parkinsons ?G20 - Parkinson's disease (ICD-10) Hypertension ?I10 - Essential (primary) hypertension (ICD-10) Surgical History History of appendectomy ?Z90.49 - Acquired absence of other specified parts of digestive tract (ICD-10) H/O: hysterectomy ?Z90.710 - Acquired absence of both cervix and uterus (ICD-10) H/O splenectomy ?Z90.81 - Acquired absence of spleen (ICD-10) Family History Brother Family history of stroke Family history of hypertension Mother Family history of stroke Family history of hypertension Father Family history of cancer Social History (Updated 10/23/24 @ 00:40 by Rachelle Kimble) Within the past year, how often did you have a drink containing alcohol: never Within the past year, how many standard drinks containing alcohol did you have on a typical day: 1 or 2 Within the past year, how often did you have six or more drinks on one occasion: never Total score: 0 Score interpretation: A score less than 3 is consistent with normal alcohol consumption. Smoking status: Former smoker Non-prescribed substance use: denies use Previous occupational history: retired Highest level of school completed/degree received: high school graduate Are you now , , , , never or living with a partner: In a typical week, how many times do you talk on the telephone with family, friends, or neighbors: 3 or more times per week How often do you get together with friends or relatives: 3 or more times per week How often do you attend protestant or anglican services: 4 or more times per year Do you belong to any clubs or organizations such as protestant groups unions, fraternal or athletic groups, or school groups: no Total score: 2 Score interpretation: A score of greater than or equal to 2 indicates the lowest level of social isolation. Little interest or pleasure in doing things: not at all Feeling down, depressed, or hopeless: not at all Feel stressed/tense/nervous/anxious/difficulty sleeping: not at all Do you think of yourself as: straight/heterosexual Gender Identity: female Meds Home Medications and Allergies Home Medications ?Medication ?Instructions ?Recorded ?Confirmed ?Type amlodipine 5 mg tablet 5 mg PO DAILY 02/08/23 10/22/24 History potassium chloride 20 mEq 20 meq PO BID 02/08/23 10/22/24 History tablet,extended release(part/cryst) (Klor-Con M) cholecalciferol (vitamin D3) 125 125 mcg PO DAILY 07/30/23 10/22/24 History mcg (5,000 unit) capsule aspirin 81 mg chewable tablet 81 mg PO DAILY 08/10/23 10/22/24 History lutein 25 mg-zeaxanthin 5 mg 1 cap PO DAILY 08/10/23 10/22/24 History capsule rasagiline 1 mg tablet 1 mg PO DAILY 08/10/23 10/22/24 History amantadine HCl 100 mg tablet 100 mg PO BID@0700,1200 04/09/24 10/22/24 History carbidopa ER 25 mg-levodopa 100 mg 1 tab PO .7am, 12pm, 5pm 04/09/24 10/22/24 History tablet,extended release pantoprazole 40 mg tablet,delayed 40 mg PO BID 04/09/24 10/22/24 History release hydralazine 25 mg tablet 25 mg PO Q12H 10/22/24 10/22/24 History ropinirole 0.5 mg tablet 0.5 mg PO .QHS 10/23/24 10/23/24 History sucralfate 1 gram tablet 1 g PO QID 10/23/24 10/23/24 History alprazolam 0.5 mg tablet 0.5 mg PO TID PRN anxiety #90 tabs 10/26/24 Rx alprazolam 1 mg tablet 1.5 mg (1.5 x 1 mg) PO HS PRN 10/26/24 Rx Sleep #30 tabs ciprofloxacin HCl 500 mg tablet 500 mg PO BID #14 tabs 10/26/24 Rx hyoscyamine sulfate 0.125 mg 0.25 mg (2 x 0.125 mg) sublingual 10/26/24 Rx sublingual tablet QID PRN dyspepsia #30 tabs metronidazole 250 mg tablet 500 mg (2 x 250 mg) PO TID #60 tabs 10/26/24 Rx olanzapine 5 mg tablet 5 mg PO QD #30 tabs 10/26/24 Rx Allergies Allergy/AdvReac Type Severity Reaction Status Date / Time Sulfa (Sulfonamide Allergy Severe Anaphylaxis Verified 10/22/24 20:20 Antibiotics) Exam Constitutional Vital Signs, click to edit/add: Last Vital Signs Temp 98.0 F 10/27/24 14:06 Pulse 107 H 10/27/24 17:49 Resp 18 10/27/24 16:41 BP 182/87 H 10/27/24 16:41 Pulse Ox 90 L 10/27/24 16:35 O2 Del Method Nasal Cannula 10/27/24 16:35 O2 Flow Rate 4 10/27/24 16:35 Common normals: oriented x3 and alert General appearance: ill appearing and frail appearing Orientation/consciousness: Yes awake, Yes oriented to person, Yes oriented to place and Yes oriented to time HENMT Common normals: normocephalic Eye Common normals: conjunctivae normal Respiratory Auscultation: diminished lung sounds; no crackles and no rales Cardio Common normals: S1 normal heart sound and S2 normal heart sound Rhythm: abnormal rhythm regularly irregular and other Heart sounds: no murmurs Peripheral pulses: radial pulses present GI Auscultation: hypoactive bowel sounds Palpation: firm and other (distended abdomen); non-tender Extremity Common normals: no clubbing, cyanosis or edema and no pedal edema Neuro Common normals: oriented x3, no focal motor deficits and no sensory deficits noted Psych Appearance: grossly normal Speech: normal speech Insight: insight good Judgement: judgment good Results Labs and Meds Lab results: Cardiac Enzymes 10/27/24 Range/Units 05:11 AST 29 (15-37) U/L CBC 10/27/24 Range/Units 05:11 WBC 9.1 (4.0-11.0) 10^3/uL RBC 4.06 L (4.20-5.40) 10^6/uL Hgb 13.0 (12.0-16.0) g/dL Hct 38.5 (36.0-48.0) % Plt Count 377 (150-450) 10^3/uL Neut # (Auto) 6.9 H (1.4-6.5) 10^3/uL Lymph # (Auto) 0.9 L (1.2-3.8) 10^3/uL [place] # (Auto) 1.2 H (0.3-0.8) 10^3/uL Eos # (Auto) 0.0 (0.0-0.7) 10^3/uL Baso # (Auto) 0.0 (0.0-0.1) 10^3/uL Comprehensive Metabolic Panel 10/27/24 10/27/24 Range/Units 05:11 10:07 Sodium 152 H 152 H (136-145) mmol/L Potassium 3.3 L 3.3 L (3.5-5.1) mmol/L Chloride 113 H 113 H (98-107) mmol/L Carbon Dioxide 28.9 27.6 (21.0-32.0) mmol/L BUN 37.0 H 37.0 H (7.0-18.0) mg/dL Creatinine 1.21 H 1.17 H (0.55-1.02) mg/dL Glucose 102 102 (74-106) mg/dL Calcium 11.1 H 10.9 H (8.5-10.1) mg/dL AST 29 (15-37) U/L ALT 9 L (14-59) U/L Alkaline Phosphatase 168 H (46-116) U/L Total Protein 6.2 L (6.4-8.2) g/dL Albumin 3.5 (3.4-5.0) g/dL Intake and Output 10/27/24 10/27/24 10/27/24 07:59 15:59 23:59 Intake Total 1050 / 1600 292.5 / 972.5 680 / 972.5 Output Total 725 / 1625 1800 / 2100 300 / 2100 Balance 325 / -25 -1507.5 / -1127.5 380 / -1127.5 Intake: Oral 360 / 360 IV 1050 / 1600 292.5 / 612.5 320 / 612.5 0.9 % Sodium Chloride 1,000 ml 1000 / 1000 242.5 / 242.5 @ 75 mls/hr IV .[id number] [facility] Rx# :[id number] Piperacillin Sodium/Tazobactam 50 / 100 50 / 100 50 / 100 3.375 gm In 0.9 % Sodium Chloride 50 ml @ 12.5 mls/hr IV Q8H [facility] Rx#:[id number] Potassium Chloride 40 meq In 0. 270 / 270 9 % Sodium Chloride 250 ml @ 67 .5 mls/hr IV ONCE ONE Rx#: [id number] Output: Urine Amount (Catheter) 725 / 1625 1800 / 2100 300 / 2100 Urethral 725 / 1625 1800 / 2100 300 / 2100 Other: # Bowel Movements 1 EKG Interpretation ECG shows: sinus rhythm and atrial fibrillation Assessment and Plan Assessment and Plan (1) PAF (paroxysmal atrial fibrillation): (2) PAC (premature atrial contraction): (3) Hypertension: Qualifiers: Hypertension type: primary hypertension Qualified Code(s): I10 - Essential (primary) hypertension (4) Elevated troponin: (5) Congestive heart failure: Qualifiers: Heart failure type: diastolic Heart failure chronicity: chronic Qualified Code(s): I50.32 - Chronic diastolic (congestive) heart failure (6) Abdominal pain: (7) Lumbar spondylosis: (8) COPD (chronic obstructive pulmonary disease): (9) Parkinsons: Plan 1. Paroxysmal atrial fibrillation: This was demonstrated only today on a strip from telemetry. I reviewed all the prior telemetry strips and ECGs that are available and they all show sinus rhythm with PACs. I think she has a tendency to go into atrial fibrillation given her chronic illness, respiratory COPD status as well as high burden of PACs. The family has mentioned that at another hospital she did have an episode of atrial fibrillation. At this time I am recommending rate control with increasing metoprolol dosage from 50 mg twice daily to 100 mg twice daily. This will also help control her blood pressure. I discussed with her family members that anticoagulation would carry a high risk given her frailty, excessive bruising and high risk of bleeding. Given that the send of atrial fibrillation is low, we can withhold anticoagulation for the time being. For the time being she can be treated with aspirin 81 mg daily. Following discharge she can be provided with an event monitor to look for the burden of atrial fibrillation and depending on the overall clinical progress she could be recommended low-dose anticoagulation. 2. Hypertension: This is not controlled. I am recommending increasing metoprolol dosage which will help control it better. 3. Elevated right-sided pressures on today's echocardiogram: I think this is partly related to her COPD. I do not think she needs active diuretic therapy at this time. 4. Mildly elevated troponin: I think this represents type II myocardial infarction in the setting of stress. She does not give symptoms of acute coronary syndrome. I recommend aspirin therapy only at this time.
[2024-10-27] MEDS: QUETIAPINE FUMARATE 25 MG TABLET PO (21:19)
[2024-10-27] MEDS: ROPINIROLE HCL 0.25 MG TABLET 0.5 MG PO (21:19)
[2024-10-27] MEDS: ENSURE HP 237 ML LIQUID PO (21:19)
--- NOTE | 2024-10-27 22:40 | PC.NURSE ---
2205-nurse aide tells nurse spo2 78-80%. Nurse takes portable pulse ox into room, spo2 83%. Oxygen turned up to 6L/nc. oxygen moved to patient's mouth as she is mouth breathing. Mottling observed to bilateral thighs and upper arms. Sp02 upto 95%. oxygen turned back down to 4L/nc. 221 cardiopulmonary into do treatment. Spo2 90% on 4L. Treatment given. Venture mask at 55% placed on patient. Spo2 only 83%. 2240 patient placed on vapotherm 40L 100% oxygen, spo2 93% lung sounds are clear and diminished.
[2024-10-28] VITALS (19 sets, daily range): BP systolic 135–161; BP diastolic 67–68; PULSE 83–113; TEMP 36.7–36.9; O2SAT 83–100
[2024-10-28] MEDS: IPRATROPIUM/ALBUTEROL SULFATE 3 ML AMPUL.NEB IH ×2 (05:16→10:39)
[2024-10-28 05:45] LABS: Basophils Percent Auto 0.1 % (0.2-2.0); Hematocrit 41.2 % (36.0-48.0); Hemoglobin 13.6 g/dL (12.0-16.0); Immature Granulocytes Abs Auto 0.03 10^3/uL (0.00-0.03); Immature Granulocytes Pct Auto 0.3 % (0.0-0.5); Lymphocytes Absolute Auto 0.5 10^3/uL (1.2-3.8); Lymphocytes Percent Auto 4.6 % (20.5-60.0); Mean Corpuscular Hemoglobin 32.1 pg (26.7-34.0); Mean Corpuscular Volume 97.2 fL (81.0-99.0); Mean Platelet Volume 11.3 fL (9.5-13.5); Monocytes Absolute Auto 0.7 10^3/uL (0.3-0.8); Monocytes Percent Auto 6.6 % (1.7-12.0); Neutrophils Absolute Auto 9.4 10^3/uL (1.4-6.5); Neutrophils Percent Auto 88.4 % (43.0-75.0); Platelet Count 370 10^3/uL (150-450); Red Blood Count 4.24 10^6/uL (4.20-5.40); White Blood Count 10.7 10^3/uL (4.0-11.0)
[2024-10-28 06:01] LABS: Ammonia <10 umol/L (11-32)
[2024-10-28 06:02] LABS: Alanine Aminotransferase 16 U/L (14-59); Albumin Level 3.1 g/dL (3.4-5.0); Alkaline Phosphatase 157 U/L (46-116); Anion Gap 12.4; Aspartate Amino Transferase 26 U/L (15-37); BUN Creatinine Ratio 30.7; Bilirubin Total 0.6 mg/dL (0.2-1.0); Calcium 11.3 mg/dL (8.5-10.1); Carbon Dioxide 33.1 mmol/L (21.0-32.0); Chloride 120 mmol/L (98-107); Estimated GFR (African America 36 (>=60 mL/min/1.73m^2); Estimated GFR (Non-African Ame 30 (>=60 mL/min/1.73m^2); Glucose 120 mg/dL (74-106); Potassium 3.5 mmol/L (3.5-5.1); Total Protein 6.1 g/dL (6.4-8.2)
[2024-10-28 06:28] LABS: Sodium 162 mmol/L (136-145); Troponin I High Sensitivity 89.5 pg/mL (4.0-51.3)
--- NOTE | 2024-10-28 06:42 | PM.PN ---
Progress Note: Subjective Subjective Interval history: Patient sedated this morning, does awaken difficult to understand speech Exam Constitutional Vital Signs, click to edit/add: Last Vital Signs Temp 98.4 F 10/28/24 06:00 Pulse 92 H 10/28/24 06:00 Resp 20 10/28/24 06:00 BP 135/67 10/28/24 06:00 Pulse Ox 94 L 10/28/24 06:00 O2 Del Method Nonrebreather 10/28/24 06:00 O2 Flow Rate 15 10/28/24 06:00 FiO2 100 10/28/24 05:17 Progress Note: Objective Labs Labs: Short CBC 10/28/24 Range/Units 05:37 WBC 10.7 (4.0-11.0) 10^3/uL Hgb 13.6 (12.0-16.0) g/dL Hct 41.2 (36.0-48.0) % Plt Count 370 (150-450) 10^3/uL BMP 10/27/24 10/28/24 10:07 05:37 Sodium 152 H 162 H* Potassium 3.3 L 3.5 Chloride 113 H 120 H Carbon Dioxide 27.6 33.1 H BUN 37.0 H 51.0 H Creatinine 1.17 H 1.66 H Glucose 102 120 H Calcium 10.9 H 11.3 H Liver Function 10/28/24 Range/Units 05:37 Total Bilirubin 0.6 (0.2-1.0) mg/dL AST 26 (15-37) U/L ALT 16 (14-59) U/L Alkaline Phosphatase 157 H (46-116) U/L Albumin 3.1 L (3.4-5.0) g/dL Progress Note: A&P Assessment and Plan (1) PAF (paroxysmal atrial fibrillation): (2) PAC (premature atrial contraction): (3) Hypertension: Qualifiers: Hypertension type: primary hypertension Qualified Code(s): I10 - Essential (primary) hypertension (4) Elevated troponin: (5) Congestive heart failure: Qualifiers: Heart failure chronicity: chronic Heart failure type: diastolic Qualified Code(s): I50.32 - Chronic diastolic (congestive) heart failure (6) Abdominal pain: (7) Lumbar spondylosis: (8) COPD (chronic obstructive pulmonary disease): (9) Parkinsons: Urinary Catheter Management Urinary Catheter Management Urethral: Cath placed during this visit: yes, but has since been removed by the nurse Urethral indwelling: Yes Insertion date: 10/24/24 Insertion time: 23:30 Removal date: 10/24/24 Removal time: 10:50
[2024-10-28 07:04] LABS: PCO2 VBG 47.8 mmHg (40.0-52.0); pH VBG 7.444 (7.330-7.430)
[2024-10-28 07:07] LABS: Magnesium 2.9 mg/dL (1.8-2.4)
[2024-10-28] MEDS: DEXTROSE 5 %-0.45 % SOD CHLORD 1,000 ML 100 ML IV (07:14)
--- NOTE | 2024-10-28 08:11 | CM.NOTE ---
Rounds made with Dr. Leary. Dr. Leary discusses plan of care with family. Possible transfer to another facility. Family in agreement.
--- NOTE | 2024-10-28 08:44 | P.DS_ITS ---
DS: Providers Provider Date of admission: 10/23/24 07:52 Primary care physician: Kavon Leary MD Consults: 10/23/24 07:20 Occupational Therapy Eval and Treat Routine Reason for consultation: Only if needed for Rehab Has provider been notified: No Physical Therapy Eval and Treat Routine Reason for consultation: Eval and Treat Has provider been notified: No 10/24/24 07:00 Occupational Therapy Eval and Treat Routine Reason for consultation: re-eval for need for rehab Has provider been notified: No Physical Therapy Eval and Treat Routine Reason for consultation: re-eval for need for rehab Has provider been notified: No 10/26/24 08:51 Consult to TeleNeurology Routine Reason for consultation: AMS, Parkinsons - need done today please Has provider been notified: No 10/26/24 15:26 Consult to Cardiology Routine Reason for consultation: a-fib Has provider been notified: No DS: Diagnosis Discharge Diagnosis (1) PAF (paroxysmal atrial fibrillation): (2) PAC (premature atrial contraction): (3) Hypertension: Qualifiers: Hypertension type: primary hypertension Qualified Code(s): I10 - Essential (primary) hypertension (4) Elevated troponin: (5) Congestive heart failure: Qualifiers: Heart failure chronicity: chronic Heart failure type: diastolic Qualified Code(s): I50.32 - Chronic diastolic (congestive) heart failure (6) Abdominal pain: (7) Lumbar spondylosis: (8) COPD (chronic obstructive pulmonary disease): (9) Parkinsons: Plan Admission findings: Sinus tachycardia and uncontrolled hypertension with mild hypoxia, laboratory result are unremarkable other than elevated liver function test, CT scan with dilated biliary ducts, CT findings consistent with enteritis, exam not consistent with enteritis, and symptoms not consistent with enteritis, pain out of proportion to physical findings - CTA abd neg for ischemia Acute abdomen due to colitis and constipation, possible ileus but no emesis, small bowel movement last 2 days Acute atrial fibrillation with rapid ventricular response resulting in acute NSTEMI type II-troponin improving--and preventive doses of Lovenox for DVT, discussed with cardiology no higher anticoagulation recommended at this time, patient in and out of atrial fibrillation Enlarged left atrium-likely leading to the atrial fibrillation as outlined above Moderate pulmonary hypertension-maintained better blood pressure control ann pherally should improve Altered mental status-likely combination of the above plus lack of sleep for 3 days improved this morning compared to previous days Bladder outlet obstruction-catheter placed to monitor fluid output Acute hypoxia-deteriorated last night, on Vapotherm stable CTA pending Elevated liver function test and elevated intra and extra biliary ducts- improving continues Hypokalemia-improved Hypernatremia-deteriorated this morning suspect from dehydration with elevated creatinine today repeat labs pending Acute UTI-on admission with culture-negative Uncontrolled hypertension and tachycardia-increased beta-ayo to 75 twice daily metoprolol General Anxiety disorder continue with home medications-teleneurology recommending staying off of benzodiazepines Insomnia with sundowning-so far do well with Seroquel 25 mg GERD-on Protonix Hypomagnesemia-repeat level to follow Parkinson's-continue with oral Parkinson's medications-see above Severe protein calorie malnutrition-diet supplement, significant muscle wasting Rehab potential: Patient mark she wants to try going home today, told her she needs to ambulate safely with walker and be weaned off of supplemental oxygen and then possible discharge to home later today otherwise she is excellent rehabilitation candidate 1 who is highly motivated for returning to home, if remains stable today likely discharge to rehab tomorrow CODE [id number] Admission status: Patient initially placed in observation bed, no improvement in symptoms overnight, with acute abdominal findings as outlined above, patient will remain n.p.o., medically necessary treatment will span 2 midnights. Inpatient status-unable to send to rehab due to altered mental status ? DS: Summary Hospital Course Hospital Course: Patient was admitted with lower abdominal pain, thought possibly related to constipation, CT scan said colitis but patient without diarrhea, no emesis to be consistent with bowel obstruction, x-ray has been maintained stable with mild dilation constipation persisting, she did have 2 bowel movements in the last couple days although small. Starting with 3 days ago patient started having more altered mental status, more agitation, she has not slept for 48 hours when this started, MRI scan was obtained and was negative, telemetry neurology consulted recommended EEG that result is pending, they also recommended avoiding benzodiazepines as patient was hypersomnolent when I saw her. Did well so far with Seroquel 25 mg at at bedtime 2 days ago patient started having tachycardia, EKG was obtained which was suspected to be atrial fibrillation with rapid ventricular sponsor but is P waves are clearly present, she was placed on telemetry there are telemetry strips now noted to demonstrate atrial fibrillation in and out, metoprolol doses were adjusted as recommended by cardiology, cardiology did not recommend anticoagulation other than DVT preventative doses of Lovenox. High risk for bleed echocardiogram unremarkable with good ejection fraction, moderate pulmonary hypertension and mild elevation in left atrial size. Overnight last night patient had acute hypoxic respiratory failure resulting in need for Vapotherm with 100%, her O2 sats did improve with that, CT scan obtained this morning and is still pending at this time, with acute hypoxia and others as outlined above discussed with family and will transfer patient to [facility] when a bed becomes available. Hypernatremia this morning-this is likely secondary to dehydration, patient had acute hypoxia yesterday morning going from 2 L to 4 L and is with suspected fluid overload she was diuresed and saline lock, in retrospect it was more likely mucous secretions and later in the day that was cleared. Restarted D5 half-normal, repeat Chem-8 prior to discharge Hypermagnesemia noted this morning-this is likely secondary to supplementation- will discontinue milk of magnesia and improved hydration should resolve Case will be discussed with [facility] hospitalist program, other specialist as requested by hospitalist there, CTA is pending at this time, repeat labs for hypernatremia are pending at this time Time Spent with Patient Time attestation: Total time spent providing and/or coordinating discharge services: Exam Constitutional Vital Signs, click to edit/add: Last Vital Signs Temp 98.4 F 05/20/25 06:00 Pulse 98 H 10/28/24 07:59 Resp 20 10/28/24 06:00 BP 135/67 10/28/24 06:00 Pulse Ox 95 10/28/24 07:59 O2 Del Method Vapotherm 10/28/24 07:22 O2 Flow Rate 40 10/28/24 07:22 FiO2 80 10/28/24 07:22 Documenting provider has reviewed patient's vital signs: yes Common normals: no apparent distress (Awakens easily) Chest Common normals: inspection of chest normal Respiratory Common normals: normal respiratory effort and no use of accessory muscles; not clear to ascultation bilaterally Auscultation: diminished lung sounds Cardio Common normals: regular rate and no murmurs; irregular rhythm GI Common normals: Normal to inspection, nondistended, normoactive bowel sounds present, soft to palpation and non-tender Extremity Common normals: abnormal to inspection (Muscle wasting noted) Neuro Common normals: moves all extremities and no focal motor deficits DS: Data Data Completed and Pending Labs on day of discharge: Labs from last 24 hours 10/28/24 10/28/24 10/27/24 06:55 05:37 10:07 WBC 10.7 RBC 4.24 Hgb 13.6 Hct 41.2 MCV 97.2 MCH 32.1 MCHC 33.0 RDW 16.0 H Plt Count 370 MPV 11.3 Neut % (Auto) 88.4 H Lymph % (Auto) 4.6 L [place] % (Auto) 6.6 Eos % (Auto) 0.0 L Baso % (Auto) 0.1 L Neut # (Auto) 9.4 H Lymph # (Auto) 0.5 L [place] # (Auto) 0.7 Eos # (Auto) 0.0 Baso # (Auto) 0.0 Abs Immat Gran (auto) 0.03 Imm/Tot Granulo (auto) 0.3 Puncture Site ABG pH ABG pCO2 ABG pO2 ABG HCO3 ABG O2 Saturation ABG Base Excess Twan Test VBG pH 7.444 H VBG pCO2 47.8 O2 Liters/Min Sodium 162 H* 152 H Potassium 3.5 3.3 L Chloride 120 H 113 H Carbon Dioxide 33.1 H 27.6 Anion Gap 12.4 14.7 BUN 51.0 H 37.0 H Creatinine 1.66 H 1.17 H Est GFR ( Amer) 36 L 54 L Est GFR (Non-Af Amer) 30 L 45 L BUN/Creatinine Ratio 30.7 31.6 Glucose 120 H 102 Calcium 11.3 H 10.9 H Magnesium 2.9 H Total Bilirubin 0.6 AST 26 ALT 16 Alkaline Phosphatase 157 H Ammonia <10 L Troponin I High Sens 89.5 H* NT-Pro-B Natriuret Pep 1349.0 1449.0 Total Protein 6.1 L Albumin 3.1 L Globulin 3.0 Albumin/Globulin Ratio 1.0 10/27/24 09:08 WBC RBC Hgb Hct MCV MCH MCHC RDW Plt Count MPV Neut % (Auto) Lymph % (Auto) [place] % (Auto) Eos % (Auto) Baso % (Auto) Neut # (Auto) Lymph # (Auto) [place] # (Auto) Eos # (Auto) Baso # (Auto) Abs Immat Gran (auto) Imm/Tot Granulo (auto) Puncture Site Rt radial ABG pH 7.452 H ABG pCO2 40.0 ABG pO2 54.8 L* ABG HCO3 27.9 H ABG O2 Saturation 89.8 ABG Base Excess 3.9 H Twan Test Positive VBG pH VBG pCO2 O2 Liters/Min 4 Sodium Potassium Chloride Carbon Dioxide Anion Gap BUN Creatinine Est GFR ( Amer) Est GFR (Non-Af Amer) BUN/Creatinine Ratio Glucose Calcium Magnesium Total Bilirubin AST ALT Alkaline Phosphatase Ammonia Troponin I High Sens NT-Pro-B Natriuret Pep Total Protein Albumin Globulin Albumin/Globulin Ratio Preliminary micro results at discharge 10/24/24 00:52 Aerobic Susc Result 2 - Preliminary Blood Anaerobe Identification - Preliminary 10/23/24 23:30 Urine Culture - Preliminary Urine,Clean Catch 10/24/24 01:00 Blood Culture Result 2 - Preliminary Blood - Right Forearm NO GROWTH AT 36-48 HOURS. FINAL TO FOLLOW. 10/24/24 00:52 Blood Culture Result 1 - Preliminary Blood - Left Forearm Discharge Plan Discharge Disposition: Xfer SNF Discharge Medications: New alprazolam 1 mg Tablet 1.5 mg PO HS PRN (Reason: Sleep) Qty: 30 0RF olanzapine 5 mg Tablet 5 mg PO QD Qty: 30 11RF metronidazole 250 mg Tablet 500 mg PO TID Qty: 60 0RF ciprofloxacin HCl 500 mg Tablet 500 mg PO BID Qty: 14 0RF hyoscyamine sulfate 0.125 mg Tablet, Sublingual 0.25 mg sublingual QID PRN (Reason: dyspepsia) Qty: 30 11RF alprazolam 0.5 mg tablet 0.5 mg PO TID PRN (Reason: anxiety) Qty: 90 0RF Continued amlodipine 5 mg tablet 5 mg PO DAILY potassium chloride [Klor-Con M20] 20 mEq tablet,ER particles/crystals 20 meq PO BID cholecalciferol (vitamin D3) 125 mcg (5,000 unit) capsule 125 mcg PO DAILY aspirin 81 mg tablet,chewable 81 mg PO DAILY lutein-zeaxanthin 25-5 mg capsule 1 cap PO DAILY rasagiline 1 mg tablet 1 mg PO DAILY amantadine HCl 100 mg tablet 100 mg PO BID@0700,1200 carbidopa-levodopa 25-100 mg tablet extended release 1 tab PO .7am, 12pm, 5pm pantoprazole 40 mg tablet,delayed release (DR/EC) 40 mg PO BID hydralazine 25 mg tablet 25 mg PO Q12H sucralfate 1 gram tablet 1 g PO QID ropinirole 0.5 mg tablet 0.5 mg PO .QHS Discontinued alprazolam 1 mg tablet 1.5 mg PO BEDTIME PRN (Reason: sleep) Print Language: Turkmen Forms: Portal Instructions
[2024-10-28] MEDS: PIPERACILLIN SODIUM/TAZOBACTAM 3.375 GM in 0.9 % SODIUM CHLORIDE 50 ML IV (08:50)
--- NOTE | 2024-10-28 11:28 | XR_ITS ---
The [address] [address] Patient Name: NANCY KHAN MRN: [id number] date: 1945 Sex: F Assigned Patient Location: MS Current Patient Location: Accession/Order Number: [id number] Exam Date: 10/28/2024 12:07 Report Date: 10/28/2024 12:09 At the request of: RODRICK SAMS MD Procedure: XR abdomen 1V XR abdomen 1V 10/28/2024 11:52 AM SIGNS AND SYMPTOMS: ^NG placement ^Y PROTOCOL: Frontal radiographs of the abdomen COMPARISON: 10/22/2024 FINDINGS: An enteric tube is present with the tip near the expected location of the gastroesophageal junction. This tube could be advanced approximately 6 cm for more adequate positioning. Dilated loops of air-filled bowel are redemonstrated. Contrast is noted in the renal collecting systems. XR/XR abdomen 1V IMPRESSION: An enteric tube is present with the tip near the expected location of the gastroesophageal junction. This tube could be advanced approximately 6 cm for more adequate positioning. Impression dictated by: Caleb Meyer M.D. 10/28/2024 12:09 PM Dictation Location: [place] [address] Electronically authenticated by: [id number] Y Date: 10/28/2024 12:09
[2024-10-28] MEDS: PANTOPRAZOLE SODIUM 40 MG VIAL IV (11:34)
[2024-10-28] MEDS: ENOXAPARIN SODIUM 30 MG/0.3 ML SYRINGE SUBQ (11:34)
[2024-10-28 11:41] LABS: Anion Gap 11.5; BUN Creatinine Ratio 27.7; Chloride 119 mmol/L (98-107); Estimated GFR (African America 30 (>=60 mL/min/1.73m^2); Estimated GFR (Non-African Ame 25 (>=60 mL/min/1.73m^2); Glucose 158 mg/dL (74-106); Potassium 3.5 mmol/L (3.5-5.1); Sodium 160 mmol/L (136-145)
--- NOTE | 2024-10-28 12:30 | SWNOTE1 ---
VANESSA notified Teodora at [facility] that pt is being transferred to [facility] for higher level of care.
--- NOTE | 2024-10-28 13:32 | PC.NURSE ---
report given to pankaj at [facility], all questions answered
--- NOTE | 2024-10-28 13:52 | NUTR.NU ---
Pt w/new dx PNA and NGT placement. Pt experienced emesis last evening r/t suspected aspiration. Planned transfer to [facility] today for higher level of care.
== END 2024-10-28 13:32 | disposition short-term general hospital (02) | DRG 391 ==
LOC: ER 23:20 → MS 23:46
PROVIDERS: Internal Medicine; Nurse Practitioner; Registered Nurse; Admitting Provider Family Medicine; Emergency Provider Internal Medicine; PCP Family Medicine; Visit Provider Family Medicine
DX: K52.89 Other specified noninfective gastroenteritis and colitis (principal); E43 Unspecified severe protein-calorie malnutrition; I21.A1 Myocardial infarction type 2; J69.0 Pneumonitis due to inhalation of food and vomit; J96.01 Acute respiratory failure with hypoxia; I50.32 Chronic diastolic (congestive) heart failure; K56.7 Ileus, unspecified; E87.0 Hyperosmolality and hypernatremia; N39.0 Urinary tract infection, site not specified; F05 Delirium due to known physiological condition; Z68.1 Body mass index [BMI] 19.9 or less, adult; J44.0 Chronic obstructive pulmonary disease with (acute) lower respiratory infection; K59.00 Constipation, unspecified; I48.0 Paroxysmal atrial fibrillation; I49.1 Atrial premature depolarization; I11.0 Hypertensive heart disease with heart failure; M47.816 Spondylosis without myelopathy or radiculopathy, lumbar region; G20.A1 Parkinson's disease without dyskinesia, without mention of fluctuations; I27.20 Pulmonary hypertension, unspecified; N32.0 Bladder-neck obstruction; E87.6 Hypokalemia; E86.0 Dehydration; R41.1 Anterograde amnesia; G47.00 Insomnia, unspecified; K21.9 Gastro-esophageal reflux disease without esophagitis; E83.42 Hypomagnesemia; Z66 Do not resuscitate; Z87.891 Personal history of nicotine dependence; Z79.899 Other long term (current) drug therapy; Z79.82 Long term (current) use of aspirin; R79.89 Other specified abnormal findings of blood chemistry; Z88.2 Allergy status to sulfonamides
CPT/HCPCS: 36415; 36600; 51702; 70450; 70551; 71046; 71275; 74018; 74022; 74174; 74177; 80048; 80053; 80076; 81001; 81003; 82140; 82800; 82805; 83605; 83690; 83735; 83880; 84484; 85007; 85025; 85027; 86140; 87040; 87086; 87150; 93005; 93306; 94640; 94667; 94668; 94761; 94799; 95816; 96374; 96375; 96376; 97110; 97161; 97165; 97530; 97535; 99285; G0378; J0131; J0360; J1230; J1650; J1938; J2060; J2270; J2405; J2543; J3010; J3475; J3480; J3486; Q9967

== ENCOUNTER 2025-01-06 14:52 | Outpatient (OUT) | payer MEDICARE, OTHER, SELFPAY ==
--- OUTSIDE RECORDS SUMMARY | 2024-10-30 10:28 | XMS_ITS ---
Author Organization The [facility] in [place] Address [address] [place] [address] Care Team Providers Care Auto Wash Buffer Name Role Phone None, Unknown or Primary Care Provider Unavailab Austin Ring Unavailable [phone] REASON FOR VISIT Call Son Angelo- Call after hours Encounters Encounter Location Date Provider Diagnosis [facility] [address] [place] [address] 10/30/2024 Austin Leary Plan Of Treatment No Information Progress Notes * Judith LAND ADOB:[birth year] (79 yo F)Acc No.[id number]:10/30/2024 Patient: Donato ANGELOraffy Davis :1945 A ge:79 Y S ex:Female Address:[address] [place] [phone] * true * Date: Generated for Danii monroe/Akanksha/eTransmitting on: 0 01/06/2025 02:55 PM EDT
--- OUTSIDE RECORDS SUMMARY | 2024-12-18 09:29 | XMS_ITS ---
Author Organization [facility] in [place] Address [address] [place] [address] Care Team Providers Care Landscape And Yardwork Laborer Name Role Phone None, Unknown or Primary Care Provider Unavailab Austin Ring Unavailable [phone] REASON FOR VISIT [facility]- CALL SUNDAY Encounters Encounter Location Date Provider Diagnosis [facility] [address] [place] [address] 12/18/2024 Austin Leary Plan Of Treatment No Information Progress Notes * Judiht LAND ADOB:[birth year] (79 yo F)Acc No.[id number]:12/18/2024 Patient: Donato ANGELOraffy Davis :1945 A ge:79 Y S ex:Female Address:[address] [place] [phone] * true * Date: Generated for Danii monroe/Akanksha/eTransmitting on: 0 01/06/2025 02:56 PM EDT
--- OUTSIDE RECORDS SUMMARY | 2024-12-23 07:15 | XMS_ITS ---
Author Organization The [facility] in [place] Address [address] [place] [address] Care Team Providers Care Retail Mortgage Banker Name Role Phone None, Unknown or Primary Care Provider Unavailab Austin Ring Unavailable [phone] REASON FOR VISIT [facility] Encounters Encounter Location Date Provider Diagnosis [facility] [address] [place] [address] 12/23/2024 Austin Leary Plan Of Treatment No Information Progress Notes * Judith LAND ADOB:[birth year] (79 yo F)Acc No.[id number]:12/23/2024 UNLOCKED PROGRESS NOTE Progress Note Patient: Judith ANGEOL Provider: Franky Leary MD (TTC) :1945 A ge:79 Y S ex:Female Date:12/23/2024 Address:[address] [place], [place] [id number] Pcp:Unknown or None Subjective: * Chief Complaints: * 1 . [facility]. * Medical History: Objective: * Vitals: Assessment: Plan: * Treatment: * * Electronic signature of Austin Leary MD, [id number] on 01/06/2025 at 02:15 PM EDT Sign off status: Pending Visit Status: C ANC (Cancelled) * Provider: Franky Leary MD (TTC) Date: 0 12/23/2024 Generated for Printi ng/Faxing/eTransmitting on: 0 01/06/2025 02:15 PM EDT
[2025-01-06 15:49] LABS: Hematocrit 37.9 % (36.0-48.0); Hemoglobin 12.2 g/dL (12.0-16.0); Immature Granulocytes Abs Auto 0.01 10^3/uL (0.00-0.03); Immature Granulocytes Pct Auto 0.1 % (0.0-0.5); Lymphocytes Absolute Auto 1.9 10^3/uL (1.2-3.8); Mean Corpuscular HGB Conc 32.2 g/dL (29.9-35.2); Mean Corpuscular Hemoglobin 31.0 pg (26.7-34.0); Mean Corpuscular Volume 96.4 fL (81.0-99.0); Platelet Count 341 10^3/uL (150-450); Red Blood Count 3.93 10^6/uL (4.20-5.40); White Blood Count 7.0 10^3/uL (4.0-11.0)
[2025-01-06 16:29] LABS: Alanine Aminotransferase 11 U/L (14-59); Albumin Globulin Ratio 1.3; Albumin Level 3.9 g/dL (3.4-5.0); Alkaline Phosphatase 159 U/L (46-116); Anion Gap 12.1; Aspartate Amino Transferase 15 U/L (15-37); Blood Urea Nitrogen 22.0 mg/dL (7.0-18.0); Calcium 10.8 mg/dL (8.5-10.1); Carbon Dioxide 28.3 mmol/L (21.0-32.0); Chloride 104 mmol/L (98-107); Estimated GFR (African America 57 (>=60 mL/min/1.73m^2); Estimated GFR (Non-African Ame 47 (>=60 mL/min/1.73m^2); Globulin 3.0 g/dL; Glucose 90 mg/dL (74-106); NT Pro B Type Natriuretic Pept 194.0 pg/mL (<=1800.0); Potassium 4.4 mmol/L (3.5-5.1); Sodium 140 mmol/L (136-145); Total Protein 6.9 g/dL (6.4-8.2)
== END 2025-01-06 14:53 | disposition home or self-care (01) ==
LOC: LAB 14:54
PROVIDERS: PCP Nurse Practitioner Family
DX: I50.32 Chronic diastolic (congestive) heart failure (principal)
CPT/HCPCS: 36415; 80053; 83880; 85025

== ENCOUNTER 2025-01-30 12:49 | Outpatient (OUT) | payer MEDICARE, OTHER, SELFPAY ==
--- OUTSIDE RECORDS SUMMARY | 2025-01-30 13:00 | XMS_ITS | CCD ---
Author Organization [facility] Care Team Providers Care Security Site Supervisor Name Role Phone SELF, REFERRED Unavailable Unavailable SELF, REFERRED Unavailable Unavailable BRAMOS, ATHANASIOS Unavailable Unavailable SUPA BRANCH Unavailable Unavailable SD Unavailable Unavailable BRAMOS, ATHANASIOS Unavailable Unavailable SD Unavailable Unavailable SUPA BRANCH Unavailable Unavailable PHYSICIAN, [...] Consulting Unavailable YULISSA TALBERT Consulting Unavailable SUPA LERMA Consulting Unavailable SHAIKH Zoltan TOM Consulting Unavailable SUPA DEAN Consulting Unavailable FLAQUITA ., DR MENSAH Primary Care Unavailable ZIMARC, DR RAMIRO Gates Consulting Unavailable BALJEET RAO Attending Unavailable BALJEET RAO Admitting Unavailable BALJEET RAO Consulting Unavailable FLAQUITA ., DR MENSAH Admitting Unavailable HOY ., DR MENSAH Attending Unavailable HOY ., DR MENSAH Consulting Unavailable HOY ., DR MENSAH Primary Care Unavailable HOY ., DR MENSAH Admitting Unavailable HOY ., DR MENSAH Attending Unavailable HOY ., DR MENSAH Consulting Unavailable HOY ., DR MENSAH Primary Care Unavailable ZIMARC, DR RAMIRO Gates Consulting Unavailable MD Kavon Sams Primary Care Provider DIXIE Gill Attending Provider [phone] Kavon Sams Primary Care Physician Rod Yu Unavailable Unavailable Kavon Sams MD Unavailable Kavon Sams Md Primary Care Provider Kavon Sams Md Primary Care Provider Andrae HERRERA, Andrius Nath Attending Unavailable Andrae HERRERA, Andrius Valla Attending Unavailable Andrae HERRERA, Andrius Vytautchuck Attending Unavailable Andrae HERRERA, Andrius Vytautchuck Attending Unavailable Andrae HERRERA, Andrius Vytautchuck Attending Unavailable Kavon Sams MD Primary Care Provider Kavon Sams MD Attending Provider Sae Morfin Attending Unavailable Sae Morfin Attending Unavailable Augie Sidhu Attending Unavailable Mila Mao Unavailable Unavailable Christopher Sales Attending Unavailable Christopher Sales Attending Unavailable Meghan Ramachandran DO Attending Provider PocSupa daly Attending Unavailable PocSupa daly Referring Unavailable PocSupa daly Admitting Unavailable Demarco Beaver Attending Unavailable Kavon Sams MD Attending Provider Meghan Ramachandran DO Attending Provider [phone] Damaso Charlton DO Emergency Provider Kavon Sams MD Primary Care Provider [phone] Lauro Garvey MD Admit Provider [phone] Lauro Garvey MD Attending Provider Mariajose Alfred MD Attending Provider Mago Quintanilla MD Other Provider Ramsey Monroe MD Other Provider Didi Navarro APRN Other Provider Dani Bah DO Other Provider Pa eNil MD Other Provider Tony Fuentes DO Other Provider Pa Neil MD Admit Provider Jolynn HERRERA, Pa Wilkins Attending Provider Harsh RN, Gloria Other Provider Unavailable Gila RN, Andra Other Provider Unavailable Shanice RN, Kimberlyn Other Provider Unavailable Hina RN, Tequila Other Provider Unavailable Alex RN, Yvrose Other Provider Unavailable Ferimn HERRERA, Trish Other Provider Barney Quan DO Other Provider Clyde Avila MD Other Provider Connor Dumont DO Other Provider Luis HERRERA, Evelio Other Provider Faith Mccoy MD Other Provider Yulissa Shelby DO Other Provider [phone] Khalif HERRERA, Ludwin Other Provider Unavailable Baylee Ho APRN Other Provider Jose Raul HERRERA, Carie Other Provider [phone] Easton Galeano MD Other Provider Yanique Echevarria MD Other Provider Unavailable Natty HERRERA, Bobby Other Provider Yulissa Lemon DO Other Provider Paxton Sparks MD Other Provider Ulysses Valenzuela MD Other Provider Mumtaz SMOKE ROOM OPERATOR-C, Meghana Wallace Other Provider Kelvin RIVERA, Sofia Monae Other Provider Unavailable Ton Conti MD Other Provider Jordan Ortega MD Other Provider Abner Lazar MD Other Provider Giana HERRERA, Nikko Other Provider Unavailable Jair Mejia MD Other Provider Carolina Mccoy DO Other Provider Hema BRIGGS, Ty Gates Other Provider Katarzyna Major APRN Other Provider Andrew Grace DO Other Provider Tima HERRERA, Mariajose Monae Other Provider Ebony Scott APRN Other Provider Sameera Diaz APRN Other Provider Amanda HERRERA, Haile Other Provider Unavailable Mare HERRERA, Lauro Wallace Other Provider Ambrosio DO, Niranjan Medina Other Provider Aristeo Kong DO Other Provider Cady HERRERA, Leonardo Mark Other Provider Addy Johns MD Other Provider [phone] Haydee Cornejo APRN Other Provider Unavailable Jaerd HERRERA, Joe Other Provider Awais Shafer MD Other Provider Santana HERRERA, Ramsey Saldana Other Provider Ludwin Barry MD Other Provider Bogdan Harris MD Other Provider Anaid Borrero APRN Other Provider [phone] Gi Liz APRN Other Provider Aliya SAM, Lanny Other Provider Unavailable Alyson Park Other Provider Unavailable Joshua PhD, Jose R Other Provider Christina Vasquez DO Other Provider Ramiro Louise MD Other Provider Baljeet Rao DO Other Provider Haydee Farris APRN Other Provider [phone] Bridget SMOKE ROOM OPERATOR-C, Cathie Martin Other Provider Philip RIVERA-SEWER BRICKLAYER-C, Shaun Carrillo Other Provider Dontrell HERRERA, Henrry Other Provider Renny HERRERA, Naye Gates Other Provider Ricky SMOKE ROOM OPERATOR-C, Shayy Segovia Other Provider Unavail able Ashwin Carlos DO Other Provider Lyle HERREAR, Dale Monae Other Provider Demarco Segal DO Other Provider BRENNA HELTON Consulting Unavailable Kavon Sams MD Primary Care Provider Kavon Sams MD Primary Care Provider Kavon Sams MD Attending Provider Trish Christensen MD Admit Provider Trish Christensen MD Attending Provider NO FAMILY, PHYSICIAN Primary Care Provider Unava ilable Alyson Park Other Provider Unavailable Joshua PhD, Jose R Other Provider Christina Vasquez DO Other Provider Ramiro Louise MD Other Provider Baljeet Rao DO Other Provider Tony Fuentes DO Other Provider Haydee Farris APRN Other Provider Bridget SMOKE ROOM OPERATOR-C, Cathie Martin Other Provider Philip RIVERA-SEWER BRICKLAYER-C, Shaun Carrillo Other Provider Trish Christensen MD Other Provider Kavon Sams MD Primary Care Provider José Antonio Lerma DO Attending Provider José Antonio Lerma DO Other Provider Damaso Charlton DO Emergency Provider Linda Minaya MD Primary Care Provider [phone] Jen Downing MD Emergency Provider Clint VU-C, Daniela Almazan Primary Care Provider [phone] Nadine HERRERA, Faith Admit Provider Nadine HERRERA, Faith Attending Provider Nadine HERRERA, Faith Other Provider [phone] Radha SAM, Candida Other Provider Unavailable David Leach MD Other Provider Harry HERRERA, Brian Navarro Attending Provider Harry HERRERA, Brian Navarro Other Provider Abiodun HERRERA, Katarzyna Other Provider Spring Chisholm APRN Other Provider Kavon Sams MD Primary Care Provider [phone] Anders HERRERA, Lauro Meyer Primary Care Provider Clint SMOKE ROOM OPERATOR, Daniela Almazan Unavailable POCOS, SUPA Davis Attending Unavailable POCOS, SUPA Davis Referring Unavailable POCOS, SUPA Davis Referring Unavailable POCOS, SUPA Davis Referring Unavailable POCOS, SUPA Davis Attending Unavailable POCOS, SUPA Davis Referring Unavailable POCOS, SUPA Davis Attending Unavailable JACKSONSHAUN Attending Unavailable POCOS, SUPA Davis Referring Unavailable POCOS, SUPA Davis Referring Unavailable POCOS, SUPA Davis Attending Unavailable DANIELA JARAMILLO Attending Unavailable HEMMERJUDITH Attending Unavailable BRIDGET, CATHIE Attending Unavailable BRIDGET, CATHIE Referring Unavailable BRIDGET, CATHIE Attending Unavailable WILIAN, CHERIE Attending Unavailable WILIAN, CHERIE Referring Unavailable WILIAN, CHERIE Attending Unavailable WILIAN, CHERIE Referring Unavailable WILIAN, CHERIE Attending Unavailable WILIAN, CHERIE Attending Unavailable WILIAN, CHERIE Referring Unavailable SOPHIE MORRIS Attending Unavailable TONY BERRY Attending Unavailable Kavon Sams Admitting Unavailable Kavon Sams Attending Unavailable Meghan Ramachandran Attending Unavailable Meghan Ramachandran Admitting Unavailable Sciaraannie Alyson Consulting Unavailable Trish Christensen Attending Unavailable NO FAMILY, PHYSICIAN Primary Care Unavailable Trish Christensen Admitting Unavailable DenJose R giraldo Consulting Unavailable Christina Vasquez Consulting Unavailable EustisRamiro Consulting Unavailable Baljeet Rao Consulting UnavailTony Cardona Consulting Unavailable Haydee Farris Consulting Unavailable Cathie Gill Consulting Unavailable Shaun Jackson Consulting Unavailable Mariajose Alfred Attending Unavailable Mago Quintanilla Consulting Unavailable Kavon Sasm M Primary Care Unavailable Lauro Garvey Admitting Unavailable Ramsey Monroe Consulting Unavailable Didi Navarro Consulting Unavailable Dani Bah Jr Consulting UnavailPa Bowser Consulting Unavaila Tony Navarro Consulting Unavailable SciaraLin valenciaAlyson Consulting Unavailable Kavon Sams M Primary Care Unavailable Semaskiene, Faith Admitting Unavailable Nadine Faith Attending Unavailable Christina Vasquez Consulting Unavailable Ramiro Louise Consulting Unavailable Baljeet Rao Consulting Unavailab Tony Coombs Consulting Unavailable Haydee Farris Consulting Unavailable Cathie Gill Consulting Unavailable Shaun Jackson Consulting Unavailable Kavon Sams Primary Care Unavailable Gloria House Consulting Unavailable Ramsey Monroe Attending Unavailable Pa Neil Admitting Unavaila Andra Mensah Consulting Unavailable Kimberlyn Prasad Consulting Unavailable Tequila Santamaria Consulting Unavailable Yvrose Johnson Consulting Unavailable Trish Christensne Consulting Unavailable Barney Quan Consulting Unavailable Clyde Avila Consulting Unavailable Connor Dumont Consulting UnavailEvelio Hair Consulting Unavailable Nadine, Faith Consulting Unavailable Yulissa Shelby Consulting Unavailable Ludwin Cuadra Consulting Unavailable Baylee Ho Consulting UnavailCarie Nixon Consulting Unavailable Easton Galeano Consulting Unavailable Yanique Echevarria Consulting Unavailable Bobby Luz Consulting Unavailable Yulissa Lemon Consulting Unavailable Paxton Sparks Consulting Unavailable Ulysses Valenzuela Consulting Unavailable Meghana Pandya Consulting Unavailable Sofia Warren Consulting Unavailable Ton Conti Consulting Unavailab Jordan [...] Leonardo Lazar Consulting Unavailable Addy Johns Consulting UnaHaydee Cabrera Consulting Unavailable Joe Coleman Consulting Unavailable Awais Shafer Consulting Unavailable Ramsey Dillon Consulting Unavailable Ludwin Barry Consulting Unavailable Bogdan Harris Consulting Unavailable Anaid Borrero Consulting Unavailable BolGi Bustillo Consulting Unavaila Lanny Donald Consulting Unavailable Alyson Park Consulting Unavailable Jose R Lewis Consulting Unavailable Christina Vasquez Consulting Unavailable Ramiro Louise Consulting Unavailable Baljeet Rao Consulting UnavailTony Cardona Consulting Unavailable Haydee Farris Consulting Unavailable Cathie Gill Consulting Unavailable Shaun Jackson Consulting Unavailable Henrry Jon Consulting Unavailable Naye Lawson Consulting Unavailable Shayy García Consulting Unavailable Ashwin Carlos Consulting Unavailable Dale Alvarenga II Consulting UnavailDemarco Mtz Consulting Unavailable Linda Mianya Primary Care Unavailable Damaso Charlton Attending Unavailable Damaso Charlton Admitting Unavailable Kavon Sams Admitting Unavailable Kavon Sams Attending Unavailable Kavon Sams Attending Unavailable Kavon Sams Admitting Unavailable Baljeet Rao DO Attending Provider [phone] Allergies Allergy Classification Reported Allergen(s) Allergy Type Date of Onset Reaction(s) Facility Sulfonamides (antibiotic) (1 source) Sulfonamides (Antibiotic); Translations: [sulfa drugs] Drug Allergy Unknown (qualifier value) [facility] (12 sources) Sulfonamides (Antibiotic); Translations: [SULFA (SULFONAMIDE ANTIBIOTICS)] Drug allergy (disorder) 4 AOF, Difficulty Breathing [facility] (1 source) Cephalexin Drug Allergy 2 [facility] (10 sources) Sulfonamides (Antibiotic); Translations: [sulfa drugs] Drug allergy Unknown (qualifier value) [facility] (17 sources) Naproxen; Translations: [NAPROXEN SODIUM] Drug Allergy 4 Unknown [facility] (20 sources) Sulfonamides (Antibiotic) Drug Allergy 4 Anaphylaxis [facility] (8 sources) Sulfamethoxazole; Translations: [sulfamethoxazole ] Drug Allergy 5 Difficulty Breathing [facility] (20 sources) Trimethoprim; Translations: [trimethoprim] Drug Allergy 5 Shortness of breath [facility] (3 sources) Ciprofloxacin Drug Allergy 5 [facility] (1 source) traZODone; Translations: [TRAZODONE] Drug Allergy 4 [facility] (1 source) Sulfonamides (Antibiotic) Drug allergy (disorder) 5 [facility] (1 source) Unable to Assess Drug allergy (disorder) 3 [facility] Medications Current Medications Medication Drug Class(es) Dates Sig (Normalized) Sig (Original) acetaminophen 500 mg oral tablet (20 sources) Start: 09-05-2024 take 1 tablet by [...] / oxyCODONE hydrochloride 5 mg oral tablet (14 sources) Opioid Agonist Start: 07-25-2024 oxyCODONE-acet aminophen (Percocet) 5-325 MG tablet 07/25/2024 Active Start: 07-24-2024 End: 07-27-2024 take 1 tablet by mouth every six hours as needed for pain oxyCODONE-acetaminophen (Percocet) 5-325 MG tablet TAKE 1 TABLET BY MOUTH EVERY 6 HOURS NEEDED FOR PAIN (8-10) FOR 3 DAYS 07/25/2024 Active albuterol 0.833 mg/ml / ipratropium bromide 0.167 mg/ml inhalation solution (6 sources) Anticholinergic, beta2-Adrenergic Agonist Start: 11-02-2024 ipratropium-albuterol (Duo-Neb) 0.5-2.5 mg/3 mL nebulizer solution Three times daily as needed for wheezing 11/02/2024 Active Start: 11-02-2024 End: 12-15-2024 take 1 mL by inhalation three times daily as needed for wheezing Ipratropium-Albuterol 0.5 mg-3 mg(2.5 mg base)/3 mL Solution For Nebulization Discontinued 3 ML INHALATION Three times daily as needed for wheezing November 02, 2024 12:00am December 15, 2024 6:32pm ALPRAZolam 1 mg oral tablet (20 sources) Benzodiazepine Start: 12-15-2024 ALPRAZolam (Xa nax) 1 MG tablet Indications: Parkinson's disease, unspecified whether dyskinesia present, unspecified whether manifestations fluctuate (HCC) Take 1.5 tablets (1.5 mg) by mouth at bedtime 1.5 tab 45 tablet 12/15/2024 Active Start: 10-28-2024 End: 11-02-2024 take 1 tablet by mouth three times daily as needed for anxiety Start: 08-20-2024 End: 11-02-2024 take 1.5 mg by mouth once daily at bedtime as needed for sleep Alprazolam (Xanax) 1 mg tablet Discontinued 1.5 MG PO Daily at bedtime as needed for sleep August 20, 2024 12:00am November 02, 2024 8:33am Start: 02-10-2020 take 1 tablet by clyde th at bedtime Alprazolam 1 mg tablet Active 1 MG PO Bedtime December 15, 2024 12:00am Complies with drug therapy Comment on above: Take 1 mg by mouth a t bedtime as needed. amantadine hydrochloride 100 mg oral tablet (20 sources) Influenza A M2 Protein Inhibitor Start: 01-29-2025 take 1 tablet by mouth three times daily Start: 12-18-2024 End: 01-29-2025 take 1 tablet by mouth once daily Amantadine Hcl 100 mg tablet Discontinued 100 MG PO Daily December 18, 2024 11:09am January 29, 2025 9:58am Start: 10-22-2023 End: 12-18-2024 take 1 tablet by mouth three times daily Amantadine Hcl 100 mg tablet Discontinued 100 MG PO Three times daily August 24, 2024 12:00am December 18, 2024 11:09am Start: 10-22-2023 End: 11-07-2024 take 1 tablet by mouth twice daily Start: 10-17-2023 End: 01-15-2024 take 1 tablet by mouth once daily Start: 10-17-2023 End: 10-18-2023 take 1 tablet by mouth twice daily amantadine HCl (SYMMETREL) 100 mg tablet Indications: Parkinson's disease with dyskinesia and fluctuating manifestations (HCC) Take 1 tablet by mouth two times a day. 30 tablet 2 10/17/2023 10/18/2023 Discontinued (Dosage adjustment) ascorbic acid 1000 mg oral tablet (3 sources) Vitamin C Start: 08-21-2024 take 1 g by mouth once daily Ascorbic Acid (Vitamin C) 1,000 mg capsule Active 1 GM PO Daily August 21, 2024 12:00am aspirin 81 mg oral tablet (20 sources) Platelet Aggregation Inhibitor, Nonsteroidal Anti-inflammatory Drug Start: 12-18-2024 take 1 tablet by mouth once daily Aspirin 81 mg tablet Active 81 MG PO Daily December 18, 2024 11:09am Complies with drug therapy Start: 11-02-2024 End: 12-18-2024 take 1 tablet by mouth in the evening Aspirin 325 mg Tablet Discontinued 325 MG PO .PM December 15, 2024 12:00am December 18, 2024 11:09am Start: 08-21-2024 End: 11-02-2024 take 1 tablet by mouth once daily Aspirin 81 mg tablet,chewable Discontinued 81 MG PO Daily August 21, 2024 12:00am November 02, 2024 8:33am Start: 02-10-2020 take 1 tablet by clyde th once daily aspirin 81 mg oral tablet [...] (Calcium 600+D Plus Minerals) 600-400 MG-UNIT tablet (19 sources) Calcium Carbonate-Vit D-Min (Calcium 600+D Plus Minerals) 600-400 MG-UNIT tablet 1 (one) time each day at the same time Active carbidopa 10 mg / levodopa 100 mg oral tablet (20 sources) Aromatic Amino Acid Decarboxylation Inhibitor, Aromatic Amino Acid Start: take 1 tablet by mouth four times daily Carbidopa-Levodop a (Sinemet) 10-100 mg tablet Active 1 TAB PO Four times daily January 29, 2025 9:57am Complies with drug therapy Start: 12-29-2024 take 1 tablet by clyde th four times daily at bedtime carbidopa-levodopa CR (SINEMET CR) 25-100 mg per tablet Indications: Parkinson's disease with dyskinesia and fluctuating manifestations (HCC) Take 1 tablet by mouth four times daily. Take at 8am, 12pm, 5pm, and bedtime. 270 tablet 3 12/29/2024 Active Start: 08-21-2024 End: 01-29-2025 take 1 tablet by mouth three times daily Carbidopa-Levodopa (Sinemet) 10-100 mg tablet Discontinued 1 TAB PO Three times daily August 21, 2024 12:00am January 29, 2025 9:58am Start: 01-14-2024 End: 12-29-2024 take 1 tablet by mouth three times [...] day(s), # 10 cap(s), Refills(s) 0, Pharmacy: [facility]/pharmacy #[id number], 167, cm, 08/03/24 19:04:00 EST, Height/Length Dosing, 54.2, kg, 08/03/24 19:04:00 EST, Weight Dosing Start Date: 08/03/24 Stop Date: 08/08/24 Status: Ordered Start: 06-23-2023 End: 06-28-2023 take 1 capsule by mouth three times daily Keflex 500 mg Cap 500 mg = 1 cap(s), Oral, TID, X 5 day(s), # 15 cap(s), Refills(s) 0, Pharmacy: [facility]/pharmacy #[id number], 167, cm, 06/23/23 1:52:00 EST, Height/Length Dosing, 56.3, kg, 06/23/23 1:52:00 EST, Weight Dosing Start Date: 06/23/23 Stop Date: 06/28/23 Status: Ordered cyclobenzaprine hydrochloride 10 mg oral [...] Oral, Daily Start Date: 02/10/20 Status: Ordered 24 hr dilTIAZem hydrochloride 180 mg extended release oral capsule (8 sources) Calcium Channel Ayo Start: 11-02-2024 take 1 capsule by mouth once daily dilTIAZem CD (Cardizem CD) 180 MG 24 hr capsule Indications: Stage 2 chronic kidney disease Take 1 capsule (180 mg) by mouth Daily 100 capsule 3 12/22/2024 Active hydroCHLOROthiazide 25 mg oral tablet (3 sources) Thiazide Diuretic Start: 08-13-2024 End: 08-13-2025 take 1 tablet by mouth in the morning hydroCHLOROthiazide (HYDRODiuril) 25 MG tablet Take 25 mg by mouth in the morning. 08/13/2024 08/13/2025 Active L. Acidophilus/Bifid. Animalis (Probiotic) 5 billion cell capsule, sprinkle (4 sources) Start: 11-02-2024 L. Acidophilus/Bifid. Animalis (Probiotic) 5 billion cell capsule, sprinkle Active 1 CAP PO Daily November 02, 2024 12:00am Complies with drug therapy Start: 11-02-2024 lutein 25 mg / zeaxanthin 5 mg oral capsule (14 sources) Start: 08-21-2024 Lutein-Zeaxant hin 25-5 MG capsule 1 capsule 08/21/2024 Active Start: 08-21-2024 End: 11-02-2024 take 1 capsule by mouth once daily Lutein-Zeaxanthin 25-5 mg capsule Discontinued 1 CAP PO Daily August 21, 2024 12:00am November 02, 2024 8:33am metoprolol tartrate 100 mg oral tablet (20 sources) beta-Adrenergic Ayo End: 10-17-2023 take 1 tablet by mouth in the morning metoprolol tartrate (Lopressor) 100 MG tablet Take 100 mg by mouth in the morning and 100 mg before bedtime. Active Comment on above: Take 100 mg by mouth twice daily. Misc Medication (5 sources) [place]: [place] [facility] [place]D3 Start Date: 02/10/20 Status: [place] [facility] [place] Attachment[place] [facility] [place] (9 sources) Start: 09-10-[place] [facility] [place] [facility] [place] Indications: Right wrist pain , Other closed intra-articular fracture of distal end of right radius with routine healing, subsequent encounter 1 Device Daily Patient requires RIGHT Platform for FWW d/t R wrist Fx 1 each 09/10/2024 Active Multivitamin preparation (16 sources) MULTIVITAMIN (VITAMIN DAILY ORAL) Take by mouth once daily. Active MULTIVITAMIN ( TAMIN DAILY ORAL) Take by mouth once daily. 0 Active Comment on above: Take by mouth once d aily. Multivitamin tablet (3 sources) Start: 5 take 1 tablet by mouth once daily Multivitamin tablet Active 1 TAB PO Daily August 21, 2024 12:00am omeprazole 20 mg delayed release oral capsule (19 sources) Proton Pump Inhibitor Start: 4 take [...] 0, Indigestion Start Date: 08/11/24 Status: Ordered Start: 08-13-2023 take 1 tablet by clyde once daily in the morning Pantoprazole 40 mg tablet,delayed release (DR/EC) Active 40 MG PO Every morning August 21, 2024 12:00am Complies with drug therapy phenazopyridine hydrochloride 200 mg delayed release oral tablet (19 sources) Start: 09-07-2023 phenazopyridine (Pyridium) 200 MG tablet Take 200 mg by mouth in the morning and 200 mg at noon and 200 mg in the evening. Take with meals. 09/07/2023 Active polyethylene glycol 3350 05732 mg powder for oral solution (3 sources) Osmotic Laxative Start: 12-18-2024 Polyethylene Glycol 3350 (Healthylax) 17 gram Powder In Packet Active 17 GM PO Daily December 18, 2024 12:00am Complies with drug therapy QUEtiapine 25 mg oral tablet (10 sources) Atypical Antipsychotic Start: 12-18-2024 take 1 tablet by mouth once daily at bedtime Quetiapine 25 mg Tablet Active 25 MG PO Daily at bedtime December 18, 2024 12:00am Complies with drug therapy Start: 08-25-2024 End: 09-05-2024 take 1 tablet by mouth once daily at bedtime Quetiapine 25 mg Tablet Discontinued 25 MG PO Daily at bedtime August 25, 2024 12:00am September 05, 2024 9:01am rasagiline 1 mg oral tablet (20 sources) Monoamine Oxidase Inhibitor Start: 07-20-2023 End: 01-14-2025 take 1 tablet by mouth once daily Rasagiline 1 mg tablet Active 1 MG PO Daily January 14, 2025 1:52pm Complies with drug therapy Comment on above: Take by mouth. rOPINIRole 0.25 mg oral tablet (20 sources) Nonergot Dopamine Agonist Start: 09-15-2024 take 1 tablet by mouth at bedtime rOPINIRole (Requip) 0.5 MG tablet Take 0.5 mg by mouth at bedtime 09/15/2024 Active Start: 09-13-2023 take 2 tablets by mo ut once daily at bedtime Ropinirole 0.25 mg Tablet Active 0.5 MG PO Daily at bedtime October 28, 2024 12:00am Complies with drug therapy Start: 09-13-2023 End: 10-01-2024 take 1 tablet by mouth three times daily Ropinirole 0.25 mg tablet Discontinued 0.25 MG PO Three times daily August 20, 2024 12:00am August 25, 2024 12:12pm Start: 09-13-2023 End: 10-28-2024 take 1 tablet by mouth once daily at bedtime Ropinirole 0.25 mg Tablet Discontinued 0.25 MG PO Daily at bedtime August 25, 2024 12:00am October 28, 2024 4:15pm Comment on above: Reduce to 2 tablets, [...] Order Notice Active 1 ea miscellaneous Once 0 September 05, 2024 12:00am sennosides, long-term 8.6 mg oral tablet (5 sources) Start: 12-19-19 take 2 tablets by mouth twice daily as needed for constipation Sennosides (Senna Lax) 8.6 mg Tablet Active 17.2 MG PO Twice daily as needed for constipation 60 December 18, 2024 12:00am Complies with drug therapy take 1 tablet by clyde th every twelve hours as needed senna (SENOKOT) 8.6 mg tab Take 8.6 mg b y mouth two times a day as needed for constipation. Active spironolactone 50 mg oral tablet (12 sources) Aldosterone Antagonist Start: 07-22-2024 take 1 tablet by mouth once daily spironolactone (Aldactone) 50 MG tablet TAKE 1 TABLET BY MOUTH EVERY DAY FOR 3 DAYS 07/22/2024 Active UNABLE TO FIND (20 sources) End: 12-25-2024 UNABLE TO FIND HANDICAP PLACARD 12/25/2024 Discontinued (Other) UNABLE TO FIND H ANDICAP PLACARD Active Vitamin D (1 source) Start: 08-11-2024 Vitamin D Refi lls(s) 0 Start Date: 08/11/24 Status: Ordered zinc gluconate 50 mg oral tablet (6 sources) Start: 08-21-2024 zinc gluconate 50 MG tablet Daily 08/21/2024 Active Completed/Discontinued Medications Medication Drug Class(es) Dates Sig (Normalized) Sig (Original) acetaminophen 325 mg / HYDROcodone bitartrate 5 mg oral tablet (4 sources) Opioid Agonist Start: 09-25-2024 End: 10-02-2024 take 1 tablet by mouth every six hours for pain, then take 2 tablets by mouth every six hours for pain HYDROcodone-aceta minophen (Boyd) 5-325 MG tablet Indications: Closed fracture of superior ramus of left pubis, initial encounter (CMS/[facility]) May take 1 tablet by mouth every 6 (six) hours if needed for severe pain. May also take 2 tablets every 6 (six) hours if needed for severe pain. Do all this for 7 days. 30 tablet 09/25/2024 10/02/2024 Start: 08-12-2024 Boyd 325 mg-5 mg oral tablet See Instructions, for pain, 30 tab(s), Refill(s) 0, 1 - 2 po q4-6h prn pain Dx: S52.501D Duration: 7 days, [id number], 167, cm, 08/07/24 6:28:00 EST, Height/Length Dosing, 54.2, kg, 08/07/24 6:28:00 EST, Weight Dosing Start Date: 08/12/24 Status: Ordered amLODIPine 5 mg oral tablet (20 sources) Dihydropyridine Calcium Channel Ayo Start: 07-02-2023 End: 12-25-2024 take 1 tablet by mouth once daily Amlodipine 5 mg tablet Discontinued 5 MG PO Daily October 28, 2024 12:00am November 02, 2024 8:33am Start: 02-10-2020 take 1 tablet by clyde once daily amLODIPine 10 mg Tab 10 mg = 1 tab(s), Oral, Daily Start Date: 02/10/20 Status: Ordered Comment on above: Take 10 mg by mouth once daily. amoxicillin 875 mg / clavulanate 125 mg oral tablet (4 sources) Penicillin-class Antibacterial Start: End: take 1 tablet by mouth twice daily Amoxicillin-Pot Clavulanate 875-125 mg tablet Discontinued 1 TAB PO Twice daily 22 12November 02, 2024 12:00am December 15, 2024 6:06pm Calcium Carbonate (7 sources) End: CALCIUM CARBONATE (CALCIUM 600 ORAL) Take by mouth twice daily. 0 10/17/2023 Discontinued CALCIUM CARBONAT E (CALCIUM 600 ORAL) Take by mouth twice daily. 0 Active Comment on above: Take by mouth twice daily. cholecalciferol 0.125 mg oral capsule (20 sources) Vitamin D Start: 10-29-19 End: 12-19-19 take 1 capsule by mouth in the evening Cholecalciferol (Vitamin D3) 125 mcg (5,000 unit) capsule Discontinued 125 MCG PO .PM October 28, 2024 12:00am December 18, 2024 11:12am Start: 08-21-2024 take 1 capsule by mo [facility] once daily Cholecalciferol (Vitamin D3) 125 mcg (5,000 unit) capsule Active 125 MCG PO Daily August 21, 2024 12:00am take 1 tablet by clyde th once daily Cholecalciferol, Vitamin D3, (D3 DOTS) 2,000 unit tab Take 2,000 Units by mouth once daily. Active Comment on above: Take 2,000 Units by mouth once daily. ciprofloxacin 500 mg oral tablet (14 sources) Quinolone Antimicrobial Start: 10-29-19 End: 11-03-19 take 1 tablet by mouth twice daily Ciprofloxacin Hcl (Cipro) 500 mg tablet Discontinued 500 MG PO Twice daily October 28, 2024 12:00am November 02, 2024 8:33am Start: 07-26-2024 End: 08-06-2024 take 1 tablet by mouth twice daily Cipro 500 mg Tab 500 mg = 1 tab(s), Oral, BID, # 14 tab(s), Refills(s) 0, Pharmacy: [id number], 167, cm, 07/26/24 16:07:00 EST, Height/Length Dosing, 54, kg, 07/26/24 16:07:00 EST, Weight Dosing Start Date: 07/26/24 Status: Ordered Start: 02-25-2020 Cipro 500 mg T ab See Instructions, Take 1 tab day prior to procedure and 1 tab day of procdure - afterwards, # 2 tab(s), Refills(s) 0, Pharmacy: [facility] #[id number], 167, cm, 02/10/20 14:06:00 EDT, Height/Length Dosing, 52, kg, 02/10/20 14:06:00 EDT, Weight Dosing Start Date: 02/25/20 Status: Ordered Folic Acid (7 sources) End: 10-17-2023 take [...] take 1 capsule by mo ut once daily, then take 1 capsule by [...] X3DAYS THEN 1 CAPSULE 3 TIMES DAILY hydrALAZINE hydrochloride 25 mg oral tablet (20 sources) Arteriolar Vasodilator Start: End: take 1 tablet by mouth twice daily Hydralazine 25 mg tablet Discontinued 25 MG PO Twice daily December 15, 2024 12:00am December 18, 2024 11:09am Start: 09-15-2024 End: 12-25-2024 take 1 tablet by mouth twice daily Hydralazine 50 mg tablet Active 50 MG PO Twice daily 60 December 18, 2024 11:09am Complies with drug therapy Start: 08-25-2024 End: 11-02-2024 take 1 tablet by mouth twice daily Hydralazine 25 mg Tablet Discontinued 25 MG PO Twice daily 60 August 25, 2024 12:00am November 02, 2024 8:33am hydroCHLOROthiazide 25 mg / lisinopril 20 mg oral tablet (20 sources) Thiazide Diuretic, Angiotensin Converting Enzyme Inhibitor Start: 02-10-2020 End: 10-01-2024 take 1 tablet by mouth once daily Lisinopril-Hydrochlorothiazide 20-25 mg tablet Discontinued 1 TAB PO Daily August 21, 2024 12:00am August 25, 2024 12:12pm Comment on above: Take 1 tablet by [facility] once daily. hyoscyamine sulfate 0.125 mg oral tablet (4 sources) Start: 10-28-2024 End: 11-02-2024 take 2 tablets by mouth four times daily as needed Hyoscyamine Sulfate 0.125 mg tablet Discontinued 0.25 MG PO Four times daily as needed for dyspepsia October 28, 2024 12:00am November 02, 2024 8:33am lisinopril 10 mg oral tablet (17 sources) Angiotensin Converting Enzyme Inhibitor Start: 11-02-2024 End: 12-25-2024 take 1 tablet by mouth once daily Lisinopril 10 mg Tablet Discontinued 10 MG PO Daily 0 November 02, 2024 12:00am December 15, 2024 6:33pm Start: 08-13-2024 End: 08-13-2025 take 1 tablet by mouth in the morning lisinopril 40 MG tablet Take 40 mg by mouth in the morning. 08/13/2024 08/13/2025 Active End: 07-30-2024 take 1 tablet by mouth once daily lisinopril 20 MG tablet Take 1 tablet by mouth Daily 07/30/2024 Discontinued meropenem 1000 mg injection (6 sources) Penem Antibacterial Start: 08-25-2024 End: 09-05-2024 take 1 g intravenously every twelve hours Meropenem 1 gram Recon Soln Discontinued 1 GM IV Q12H 0 August 25, 2024 12:00am September 05, 2024 9:01am metroNIDAZOLE 500 mg oral tablet (4 sources) Nitroimidazole Antimicrobial Start: 10-28-2024 End: 11-02-2024 take 1 tablet by mouth three times daily Metronidazole 500 mg tablet Discontinued 500 MG PO Three times daily October 28, 2024 12:00am November 02, 2024 8:33am OLANZapine 5 mg oral tablet (4 sources) Atypical Antipsychotic Start: 10-28-2024 End: 11-02-2024 take 1 tablet by mouth once daily Olanzapine 5 mg tablet Discontinued 5 MG PO Daily October 28, 2024 12:00am November 02, 2024 8:33am OMEGA-3 FATTY ACIDS/FISH OIL (OMEGA 3 FISH [...] on above: Take 1,200 mg by clyde twice daily. microencapsulated potassium chloride 20 meq extended release oral tablet (20 sources) Start: 06-30-2023 End: 11-02-2024 Potassium Chloride (Klor-Con M20) 20 mEq tablet,ER particles/crystals Discontinued 20 MEQ PO Twice daily October 28, 2024 12:00am November 02, 2024 8:33am Start: 06-30-2023 take 1 tablet by clyde every twelve hours KLOR-CON M20 20 mEq tablet Take 1 tablet by mouth every 12 hours. 06/30/2023 Active Start: 02-10-2020 take 1 tablet by clyde twice daily potassium chloride 20 mEq ER Tab 20 mEq = 1 tab(s), Oral, BID, Prophylaxis Start Date: 02/10/20 Status: Ordered Start: 02-10-2020 take 2 tablets by mo [facility] once daily potassium chloride 20 mEq ER Tab 40 mEq = 2 tab(s), Oral, Daily Start Date: 02/10/20 Status: Ordered potassium chlori de (KLOR-CON 10) 10 mEq tablet Take 20 mEq by mouth once daily. Active take 2 tablets by mo [facility] in the morning potassium chloride CR (Klor-Con) 10 MEQ ER tablet Take 20 mEq by mouth in the morning and 20 mEq before bedtime. Active Comment on above: Take 20 mEq by mouth once daily. Take 1 tablet by clyde every 12 hours. pravastatin sodium 20 mg oral tablet (20 sources) HMG-CoA Reductase Inhibitor Start: 0 End: 5 take 1 tablet by mouth once daily Pravastatin 20 mg tablet Discontinued 20 MG PO Daily August 21, 2024 12:00am August 25, 2024 12:12pm Comment on above: Take 20 mg by mouth once daily. sucralfate 1000 mg oral tablet (17 sources) Aluminum Complex Start: 5 take 1 tablet by mouth once daily sucralfate 1 g Tab 1 gm = 1 tab(s), Oral, Daily, Refills(s) 0 Start Date: 08/11/24 Status: Ordered Start: 07-10-2024 End: 11-02-2024 take 1 tablet by mouth four times daily Sucralfate 1 gram tablet Discontinued 1 GM PO Four times daily October 28, 2024 12:00am November 02, 2024 8:33am Problems Active Problems Problem Classification Problem Date Documented Da te Episodic/Chronic Abdominal pain (6 sources) Unspecified abdominal pain; Translations: [Pain in pelvis] Onset: 2 Episodic Acute and unspecified renal failure (20 sources) Acute renal failure syndrome; Translations: [Acute kidney failure, unspecified] Onset: 5 Resolved: 5 08-21-2024 Episodic Administrative/social admission (10 sources) Other reduced mobility; Translations: [Impaired mobility and activities of daily living] Onset: 5 08-26-2024 Episodic Anxiety disorders (19 sources) Anxiety disorder, unspecified; Translations: [Anxiety] Onset: 4 08-22-2024 Chronic Anxiety disorders (1 source) Organic anxiety disorder; 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] 07-16-2024 Episodic Aspiration pneumonitis; food/vomitus (12 sources) Aspiration pneumonia; Translations: [Pneumonitis due to inhalation of food and vomit] Onset: 5 10-29-2024 Episodic Blindness and vision defects (5 sources) Visual hallucinations; Translations: [Visual hallucinations] Onset: 5 12-16-2024 Episodic Chronic kidney disease (4 sources) Chronic kidney disease stage 3B ; Translations: [Stage 3b chronic kidney disease ([facility])] Onset: 5 12-25-2024 Chronic Chronic obstructive pulmonary disease and bronchiectasis (20 sources) Chronic obstructive pulmonary disease, unspecified; Translations: [Chronic obstructive pulmonary disease with (acute) exacerbation] Onset: 8 Chronic Congestive heart failure; nonhypertensive (7 sources) Unspecified diastolic (congestive) heart failure; Translations: [Acute systolic (congestive) heart failure] Onset: 2 12-25-2024 Chronic Deficiency and other anemia (1 source) Anemia, unspecified; Translations: [ANEMIA UNSPECIFIED] Onset: 3 Episodic Diabetes mellitus without complication (1 source) Type 2 diabetes mellitus without complications; Translations: [TYPE 2 DIABETES MELLITUS WITHOUT COMPLICATIONS] Onset: 8 Chronic Disorders of lipid metabolism (20 sources) Hyperlipidemia, unspecified; Translations: [Pure hypercholesterolemia, unspecified] Onset: 5 Chronic E Codes: Fall (1 source) Fall; Translations: [Unspecified fall, initial encounter] Onset: 5 Episodic Esophageal disorders (3 sources) Gastroesophageal reflux disease; Translations: [Gastro-esophageal reflux disease without esophagitis] Onset: 5 12-25-2024 Chronic Essential hypertension (20 sources) Essential (primary) hypertension; Translations: [Essential hypertension] Onset: 4 Chronic External Injury - Fall (1 source) Unspecified fall, initial encounter; Translations: [UNSPECIFIED FALL, INITIAL ENCOUNTER] Onset: 8 Fluid and electrolyte disorders (18 sources) Hypokalemia; Translations: [Dehydration] Onset: 8 Episodic Fracture of upper limb (14 sources) Closed fracture of distal end of radius; Translations: [Unspecified fracture of the lower end of unspecified radius, initial encounter for closed fracture] Onset: 5 Episodic Hypertension with complications and secondary hypertension (8 sources) Hypertensive heart disease with heart failure; Translations: [Hypertensive emergency] Onset: 3 12-15-2024 Chronic Malaise and fatigue (10 sources) Weakness; Translations: [Asthenia] Onset: 2 Episodic Miscellaneous mental health disorders (20 sources) Primary insomnia; Translations: [Primary insomnia] Onset: 4 10-25-2023 Chronic Noninfectious gastroenteritis (3 sources) Acute gastroenteritis; Translations: [Noninfective gastroenteritis and colitis, unspecified] Onset: 5 12-25-2024 Episodic Nutritional deficiencies (3 sources) Unspecified protein-calorie malnutrition; Translations: [Vitamin D deficiency, unspecified] Onset: 8 Chronic Nutritional deficiencies (12 sources) Cachexia; Translations: [Cachexia] Onset: 5 10-28-2024 Episodic Occlusion or stenosis of precerebral arteries (4 sources) Bilateral stenosis of carotid arteries; Translations: [Occlusion and stenosis of bilateral carotid arteries] 04-23-2024 Chronic Other circulatory disease (8 sources) History of cerebrovascular accident; Translations: [Personal history of transient ischemic attack (TIA), and cerebral infarction without residual deficits] 04-23-2024 Episodic Other connective tissue disease (11 sources) Muscle atrophy; Translations: [Muscle wasting and atrophy, not elsewhere classified, unspecified site] Onset: 5 10-28-2024 Episodic Other connective tissue disease (1 source) Muscle wasting and atrophy, not elsewhere classified, unspecified site; Translations: [Muscle wasting and atrophy, not elsewhere classified, unspecified site] Onset: 5 Episodic Other diseases of kidney and ureters (6 sources) Hydronephrosis 02-10-2020 Episodic Other eye disorders (1 source) Degenerative disorder of eye; 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, bilateral eye] 09-13-2023 Chronic Other fractures (13 sources) Fracture of superior pubic ramus; Translations: [Fracture of superior rim of left pubis, initial encounter for closed fracture] Onset: 5 09-03-2024 Episodic Other gastrointestinal disorders (1 source) Slow transit constipation; Translations: [Slow transit constipation] 12-29-2024 Episodic Other gastrointestinal disorders (1 source) Slow transit constipation; Translations: [Slow transit constipation] Onset: 5 Episodic Other hereditary and degenerative nervous system conditions (20 sources) Intention tremor; Translations: [Other specified forms of tremor] Onset: 4 10-25-2023 Chronic Other hereditary and degenerative nervous system conditions (20 sources) Restless legs; Translations: [Restless legs syndrome] Onset: 4 10-25-2023 Chronic Other hereditary and degenerative nervous system conditions (20 sources) Dyskinesia; Translations: [Dystonia, unspecified] Onset: 4 10-25-2023 Chronic Other injuries and conditions due to external causes (1 source) Injury of upper extremity; Translations: [Unspecified injury of unspecified wrist, hand and finger(s), initial encounter] Onset: 5 Episodic Other lower respiratory disease (1 source) Hypoxemia; Translations: [Hypoxemia] Onset: 4 Episodic Other lower respiratory disease (6 sources) History of chronic lung disease 02-10-2020 Episodic Other nervous system disorders (20 sources) Neuropathy; Translations: [Polyneuropathy, unspecified] Onset: 4 09-13-2023 Chronic Other nervous system disorders (20 sources) Carpal tunnel syndrome of right wrist; Translations: [Carpal tunnel syndrome, right upper limb] Onset: 4 10-25-2023 Chronic Other nervous system disorders (20 sources) Chronic pain; Translations: [Other chronic pain] Onset: 4 10-25-2023 Chronic Other nervous system disorders (14 sources) Metabolic encephalopathy; Translations: [Metabolic encephalopathy] Onset: 5 08-21-2024 Chronic Other nervous system disorders (4 sources) Metabolic encephalopathy; Translations: [Metabolic encephalopathy] Onset: 5 08-25-2024 Chronic Other nervous system disorders (8 sources) Abnormal circadian rhythm; Translations: [Circadian rhythm sleep disorder, unspecified type] 10-29-2024 Chronic Other nervous system disorders (11 sources) Disorder of brain; Translations: [Encephalopathy, unspecified] Onset: 5 10-28-2024 Chronic Other nervous system disorders (1 source) Encephalopathy, unspecified; Translations: [Encephalopathy, unspecified] Onset: 5 Chronic Other nervous system disorders (1 source) Circadian rhythm sleep disorder, unspecified type; Translations: [Circadian rhythm sleep disorder, unspecified type] Onset: 5 Chronic Other nervous system disorders (1 source) Abnormal gait; Translations: [Unsteadiness on feet] 12-29-2024 Episodic Other nervous system disorders (1 source) Unsteadiness on feet; Translations: [Gait instability] Onset: 5 Episodic Other non-traumatic joint disorders (5 sources) Pain of right wrist; Translations: [Pain in right wrist] 07-30-2024 Episodic Other nutritional; endocrine; and metabolic disorders (2 sources) Hypocalcemia; Translations: [Other disorders of phosphorus metabolism] Onset: 8 Chronic Other nutritional; endocrine; and metabolic disorders (6 sources) Hypercalcemia; Translations: [Hypercalcemia] 08-22-2024 Chronic Other nutritional; endocrine; and metabolic disorders (3 sources) Hypercalcemia; Translations: [Hypercalcemia] Onset: 5 08-25-2024 Chronic Other nutritional; endocrine; and metabolic disorders (1 source) Underweight; Translations: [Underweight] 07-30-2024 Episodic Other nutritional; endocrine; and metabolic disorders (4 sources) Abnormal weight loss; Translations: [Abnormal weight loss] Onset: 5 12-25-2024 Episodic Other screening for suspected conditions (not mental disorders or infectious disease) (6 sources) Blood chemistry abnormal; Translations: [Other specified abnormal findings of blood chemistry] Onset: 4 Episodic Other upper respiratory disease (1 source) Hoarse; Translations: [Dysphonia] 07-16-2024 Episodic Paralysis (20 sources) Right hemiplegia; Translations: [Hemiplegia, unspecified affecting right dominant side] Onset: 4 10-25-2023 Chronic Parkinson's disease (9 sources) Parkinson's disease; Translations: [Parkinson's disease] Onset: 8 06-23-2023 Chronic Parkinson`s disease (3 sources) Parkinson`s disease; Translations: [Parkinson's disease with dyskinesia and fluctuating manifestations (HCC)] Onset: 4 Residual codes; unclassified (1 source) Insomnia, unspecified; Translations: [INSOMNIA UNSPECIFIED] Onset: 3 Episodic Residual codes; unclassified (8 sources) Altered mental status; Translations: [Altered mental status, unspecified] Onset: 5 Episodic Residual codes; unclassified (4 sources) Altered mental status, unspecified; Translations: [Altered mental status] Onset: 5 08-20-2024 Episodic Residual codes; unclassified (1 source) Pain, unspecified; Translations: [Pain, unspecified] Onset: 5 Episodic Residual codes; unclassified (15 sources) Delirium; Translations: [Disorientation, unspecified] Onset: 5 10-29-2024 Episodic Residual codes; unclassified (6 sources) Acute confusion; Translations: [Disorientation, unspecified] 12-15-2024 Episodic Residual codes; unclassified (3 sources) Edema; Translations: [Edema, unspecified] Onset: 5 12-25-2024 Episodic Residual codes; unclassified (4 sources) Bilateral lower limb edema; Translations: [Localized edema] Onset: 5 12-25-2024 Episodic Residual codes; unclassified (1 source) Disorientation, unspecified; Translations: [Disorientation, unspecified] Onset: 5 Episodic Respiratory failure; insufficiency; arrest (adult) (1 source) Dependence on supplemental oxygen; Translations: [DEPENDENCE ON SUPPLEMENTAL OXYGEN] Onset: 2 Chronic Respiratory failure; insufficiency; arrest (adult) (10 sources) Acute respiratory failure with hypoxia; Translations: [Acute respiratory failure] Onset: 2 10-28-2024 Episodic Retinal detachments; defects; vascular occlusion; and retinopathy (7 sources) Bilateral degeneration of macula; 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] Onset: 5 07-24-2024 Chronic Spondylosis; intervertebral disc disorders; other back problems (4 sources) Other intervertebral disc degeneration, lumbar region; Translations: [Lumbar spondylosis] Onset: 2 12-25-2024 Chronic Spondylosis; intervertebral disc disorders; other back problems (4 sources) Spinal stenosis in cervical region; Translations: [Spinal stenosis, cervical region] 09-13-2023 Episodic Substance-related disorders (1 source) Nicotine dependence, cigarettes, with other nicotine-induced disorders; Translations: [NICOTINE DEPENDENCE, CIGARETTES, W OTH DISORDERS] Onset: 8 Chronic Unclassified (20 sources) Parkinson's disease; Translations: [Parkinson's disease without dyskinesia, without mention of fluctuations] Onset: 4 Chronic 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) 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; Translations: [[facility] (CURRENT) USE OF ORAL HYPOGLYCEMIC DRUGS] Onset: 8 Unclassified (2 sources) Unknown / UNK(Unknown) Onset: 8 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) PERSONAL HISTORY OF COVID-19; Translations: [PERSONAL HISTORY OF COVID-19] Onset: 2 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) UNVACCINATED FOR COVID-19; Translations: [UNVACCINATED FOR COVID-19] Onset: 2 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) CONTACT W/AND (SUSP) EXPOS COVID-19; Translations: [CONTACT W/AND (SUSP) EXPOS COVID-19] Onset: 2 Unclassified (3 sources) A [facility] screening has identified you as FRAIL or [...] Four Ways to Beat the Frailty Risk [email or web address] 08-25-2024 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) Altered Mental Status - [place] Onset: 5 Unclassified (8 sources) Call office on Sunday to schedule follow-up with Neurology. Unclassified (8 sources) Follow-up with Pulmonology if needed Unclassified (4 sources) Centralized Scheduling will call you to schedule a outpatient stress test Unclassified (4 sources) Post hospital appointment. Please call to reschedule if needed. Unclassified (4 sources) 6-8 weeks after you complete Stress testing Urinary tract infections (20 sources) Urinary tract infection, site not specified; Translations: [Urinary tract infectious disease] Onset: 2 Resolved: 5 Episodic Past or Other Problems Problem Classification Problem Date Documented Date Episodic/Chronic Abdominal hernia (3 sources) Incisional hernia; Translations: [Incisional hernia without obstruction or gangrene] Onset: 08-28-2023 12-25-2024 Episodic Acute bronchitis (1 source) Acute bronchitis, unspecified; Translations: [ACUTE BRONCHITIS UNSPECIFIED] Onset: 05-22-2022 Episodic Acute posthemorrhagic anemia (1 source) Acute posthemorrhagic anemia; Translations: [ACUTE POSTHEMORRHAGIC ANEMIA] Onset: 08-11-2017 Episodic Calculus of urinary tract (16 sources) Kidney stone; Translations: [Calculus of kidney] Onset: 02-20-2020 02-20-2020 Episodic Crushing injury or internal injury (3 sources) Unspecified injury of spleen, initial encounter; Translations: [Major laceration of spleen, initial encounter] Onset: 08-11-2017 Episodic Genitourinary symptoms and ill-defined conditions (20 sources) Personal history of urinary (tract) infections; [...] 05-24-2022 Episodic Other aftercare (2 sources) 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; Translations: [BRICKLAYER HELPER (CURRENT) USE OF ASPIRIN] Onset: 08-11-2017 Episodic Other aftercare (1 source) Other termite exterminator 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) drug therapy; Translations: [OTH BRICKLAYER HELPER CURRENT DRUG THERAPY] Onset: 05-22-2022 Episodic Other connective tissue disease (18 sources) Abnormal posture; Translations: [Abnormal posture] Onset: 09-13-2023 09-13-2023 Episodic Other diseases of kidney and ureters (9 sources) Kidney disease; Translations: [Disorder of kidney and ureter, unspecified] Onset: 07-06-2023 Resolved: 12-25-2024 02-10-2020 Episodic Other diseases of kidney and ureters (20 sources) Obstruction of pelviureteric junction; Translations: [Crossing vessel and stricture of ureter without hydronephrosis] Onset: 02-20-2020 02-10-2020 Episodic Other diseases of kidney and ureters (16 sources) Stricture of ureter; Translations: [Crossing vessel and stricture of ureter without hydronephrosis] Onset: 03-23-2020 03-23-2020 Episodic Other fractures (2 sources) Fracture of superior rim of left pubis, initial encounter for closed fracture; Translations: [Closed fracture of pubis] Onset: 08-25-2024 09-05-2024 Episodic Other hematologic conditions (1 source) Other [...] Onset: 12-27-2021 Episodic Other nervous system disorders (20 sources) Hyperreflexia; Translations: [Abnormal reflex] Onset: 09-13-2023 09-13-2023 Episodic Other nervous system disorders (20 sources) Ataxia; Translations: [Ataxia, unspecified] Onset: 10-25-2023 10-25-2023 Episodic Other nervous system disorders (20 sources) Paresthesia; Translations: [Paresthesia of skin] Onset: [...] SPLEEN] Onset: 05-22-2022 Episodic Residual codes; unclassified (20 sources) Memory impairment; Translations: [Other amnesia] Onset: 09-13-2023 09-13-2023 Episodic Residual codes; unclassified (1 source) Other specified health status; Translations: [Other specified health status] Onset: 08-25-2024 Episodic Screening and history of mental health [...] Test Name Value Interpretation Reference Range Facility 2901-06-2025 29 Addended by: TONY BERRY on: 01/07/2025 01:07 PM Modules accepted: Orders Normal [facility] Office Visiton 01-06-2025 Follow-up visit [id number] Donato Land Susan 1945 F Date Provider Department Center 01/06/2025 [id number], ADAM CARD [facility] Family History Problem Relation Age of Onset Stroke Mother Stroke Brother Other Mother's Sister Coronary artery disease Mother's Sister Stroke Maternal Grandmother Family Status - Relation Status Age at Mother Brother Mother's Sister Maternal Grandmother Level of Service:53058 SD OFFICE/OUTPATIENT NEW MODERATE MDM 45 MINUTES Normal [facility] CNOVon 12-29-2024 CN Office Visit (NREUS2 ) ----- JUDITH LAND ([id number]) 1945 F Date Time Provider Department 12/29/24 9:00 AM CHERIE CEDENO NREUS2 During your visit today, we recorded the following information about you: Pulse Blood pressure Weight 83/minute 146/82 46.4 kg Cherie Cedeno PA-C 12/29/2024 10:02 AM Signed [facility] - FOLLOW UP EVALUATION Md Kavon Sams (Inactive) No address on file Dear Md Kavon Sams (Inactive): I had the pleasure of seeing Ms. Land for follow-up today. As you know she is a 79 year old right-handed female with a history of parkinson disease since 2014. Subjective Previous Plan 07/16/2024 Visit: Parkinson's Disease - I am so glad that you have continued to do well. We will add a third amantadine with your evening dose to help with the jerking movements Balance and strength - keep up your home exercises from Parkinson's Disease therpay Look into Parkinson's Disease Exercise Class at your local [facility] Voice - The Parkinson Voice Project [...] you need assistance with scheduling, please call [phone], option 2 to speak with one of our scheduling team members. Interval History: Judith Land is a 79-year-old female with a history of Parkinson's disease, presenting for follow-up. She is accompanied by her daughter, who provides additional history. Judith has experienced a challenging year, marked by multiple hospitalizations and falls. In June, she developed a UTI, followed by a fall in July that resulted in a wrist fracture, necessitating surgery in early August. During a subsequent 16-day hospital stay, she fell again, fracturing her pubic bone. These incidents have significantly impacted her mobility and overall health. She was recently hospitalized for five days due to elevated blood pressure and confusion. During this stay, the staff neurologist reduced her amantadine from three times daily to once daily, leading to significant dyskinesias. Her daughter has since resumed the original dosing schedule, noting improvement in symptoms. Judith reports persistent difficulty with mobility, particularly when rising from a chair and navigating stairs, which she finds terrifying. She uses a rollator walker as needed for stability, but not frequently. She also experiences worsening constipation, managed with Senna-Lax and Miralax. She is currently receiving home health services, including occupational and physical therapy twice weekly, with plans to initiate speech therapy due to emerging speech and cognitive difficulties. She does not endorse dysphagia. Her current medication regimen includes Sinemet CR at breakfast (7-8 AM), lunch (12 PM), and dinner (5 PM), amantadine three times daily, rasagiline in the morning, and pramipexole at night. She reports that her medications generally take effect within 15-20 minutes and provide symptom relief for several hours. Movement Disorders Medications Schedule - as of the start of the visit: Medications breakfast lunch bedtime ropinerole 0.25mg 1 azilect 1mg 1 sinemet CR 25/100mg 1 1 1 amantadine 100 mg 1 1 1 Prior Anti-Parkinson Therapies Carbidopa/Levodopa Rasagiline Ropinirole ALLERGIES Allergen Reactions Aleve [Naproxen Sod* Unknown Sulfa (Sulfonamide * Anaphylaxis Current Outpatient Medications Medication Sig polyethylene glycol 3350 (MIRALAX) 17 gram/dose powder Take 17 g by mouth once daily. Dissolve dose in 4 - 8 ounces of liquid and take as directed. senna (SENOKOT) 8.6 mg tab Take 8.6 mg by mouth two times a day as needed for constipation. pantoprazole DR (PROTONIX) 40 mg tablet Take 40 mg by mouth once daily. Every Morning dilTIAZem CD (CARDIZEM CD, CARTIA XT) 180 mg 24 hr capsule Take 180 mg by mouth once daily. amantadine HCl (SYMMETREL) 100 mg tablet TAKE 1 TABLET BY MOUTH 3 TIMES A DAY WITH EACH DOSE OF SINEMET rasagiline (AZILECT) 1 mg tab Take by mouth. rOPINIRole (REQUIP) 0.25 mg tablet [...] mg by mouth at bedtime as needed. Cholecalciferol, Vitamin D3, (D3 DOTS) 2,000 unit tab Take 2,000 Units by mouth once daily. MULTIVITAMIN (VITAMIN DAILY ORAL) Take by mouth once daily. carbidopa-levodopa CR (SINEMET CR) 25-100 mg per tablet Take 1 tablet by mouth four time (more content not included)... Normal [facility] Basic Metabolic Panelon 07- Anion gap [Moles/Vol] 9.0 mmol/L Normal 6.0-15.0 [facility] Comment on above: Performed By: #### D IFF CBC, BMP ####[facility] [id number] [place] [address] [facility] Calcium [Mass/Vol] 10.0 mg/dL Normal 8.6-10.3 [facility] Comment on above: Performed By: #### D IFF CBC, BMP ####[facility] [place] [address] [place] Chloride [Moles/Vol] 111 mmol/L High 98-107 [facility] Comment on above: Performed By: #### D IFF CBC, BMP ####[place] [place] [address] [facility] CO2 [Moles/Vol] 24.9 mmol/L Normal 21.0-31.0 [facility] Comment on above: Performed By: #### D IFF CBC, BMP ####[address] [place] [address] [facility] Creatinine [Mass/Vol] 0.98 mg/dL Normal 0.60-1.20 [facility] Comment on above: Performed By: #### D IFF CBC, BMP ####[address] [place] [address] [place] Creatinine Clr Calc Pharmacy 33.54 Normal [facility] Comment on above: Result Comment: PERF ORMED BY:[address] [place] [id number] MEDICAL LUÍS PIERSON M.D. Performed By: #### D IFF CBC, BMP ####[address] [place] [address] [place] GFR/1.73 sq M.predicted MDRD (S/P/Bld) [Vol rate/Area] 59.079 mL/min/{1.73_m2} Normal [facility] Comment on above: Performed By: #### D IFF CBC, BMP ####[address] [place] [address] [facility] Glucose [Mass/Vol] 94 mg/dL Normal 70-100 [facility] Comment on above: Result Comment: [facility] Glucose Reference Range is dependent on time and content of last meal. Glucose of more than 200 mg/dL in a nonstressed, ambulatory subject supports the diagnosis of Diabetes Mellitus. ADA recommended reference range Performed By: #### D IFF CBC, BMP ####[place] [address] Potassium [Moles/Vol] 3.9 mmol/L Normal 3.5-5.1 [facility] Comment on above: Performed By: #### D IFF CBC, BMP ####[address] Sodium [Moles/Vol] 141 mmol/L Normal 136-145 [facility] Comment on above: Performed By: #### D IFF CBC, BMP ####[address] Urea nitrogen [Mass/Vol] 25 mg/dL Normal 7-25 [facility] Comment on above: Performed By: #### D IFF CBC, BMP ####[address] Diff and CBCon 12-18-2024 Acanthocytes Slight Normal [facility] Comment on above: Performed By: #### D IFF CBC, BMP ####[address] Basophils/100 WBC (Bld) 2 % Normal 0-2 [facility] Comment on above: Performed By: #### D IFF CBC, BMP ####[address] Crenated RBC Moderate Normal [facility] Comment on above: Performed By: #### D IFF CBC, BMP ####[address] Eosinophils/100 WBC (Bld) 6 % High 1-3 [facility] Comment on above: Performed By: #### D IFF CBC, BMP ####[address] Erythrocyte distribution width (RBC) [Ratio] 14.5 % Normal 11.9-15.3 [facility] Comment on above: Performed By: #### D IFF CBC, BMP ####[address] Giant Platelet Tally 20 /100{WBC} Normal Th e [facility] Comment on above: Performed By: #### D IFF CBC, BMP ####[place] [id number] [facility] Hematocrit (Bld) [Volume fraction] 35.6 % Normal 34.0-46.4 [facility] Comment on above: Performed By: #### D IFF CBC, BMP ####[place] [id number] [facility] Hemoglobin (Bld) [Mass/Vol] 11.8 g/dL Normal 11.8-15.4 [facility] Comment on above: Performed By: #### D IFF CBC, BMP ####[address] Large Platelets Moderate Normal [facility] Comment on above: Result Comment: PERF ORMED BY:[address] [place], [place] [id number] MEDICAL DIRECTORSHANON PIERSON M.D. Performed By: #### D IFF CBC, BMP ####[place] [id number] [facility] Lymphocytes/100 WBC (Bld) 28 % Normal 18-42 [facility] Comment on above: Performed By: #### D IFF CBC, BMP ####[place] [id number] [facility] MCH (RBC) [Entitic mass] 31.2 pg Normal 24.7-34.3 [facility] Comment on above: Performed By: #### D IFF CBC, BMP ####[place] [id number] [facility] MCV (RBC) [Entitic vol] 94.2 fL Normal 80-100 T [facility] Comment on above: Performed By: #### D IFF CBC, BMP ####[place] [id number] [facility] Mean Corpuscular HGB Conc 33.1 g/dL Normal 32.0-35.0 [facility] Comment on above: Performed By: #### D IFF CBC, BMP ####[address] Monocytes/100 WBC (Bld) 11 % Normal 2-11 T he [facility] Comment on above: Performed By: #### D IFF CBC, BMP ####[address] Platelet Estimate Normal Normal Normal [facility] Comment on above: Performed By: #### D IFF CBC, BMP ####[address] Platelet mean volume (Bld) [Entitic vol] 10.3 fL Normal 6.3-10.7 [facility] Comment on above: Performed By: #### D IFF CBC, BMP ####[address] Platelets (Bld) [#/Vol] 257 10*3/uL Normal 150-450 [facility] Comment on above: Performed By: #### D IFF CBC, BMP ####[address] Poikilocytosis Moderate Normal [facility] Comment on above: Performed By: #### D IFF CBC, BMP ####[address] RBC (Bld) [#/Vol] 3.78 10*6/uL Normal 3.60-5.00 [facility] Comment on above: Performed By: #### D IFF CBC, BMP ####[address] Reactive Lymphocytes 1 % Normal 0-12 [facility] Comment on above: Performed By: #### D IFF CBC, BMP ####[place] [id number] [facility] Segmented neutrophils/100 WBC (Bld) 52 % Normal 50-70 [facility] Comment on above: Performed By: #### D IFF CBC, BMP ####[address] WBC (Bld) [#/Vol] 8.7 10*3/uL Normal 3.8-11.6 [facility] Comment on above: Performed By: #### D IFF CBC, BMP ####[place] [id number] [facility] White Blood Count 8.7 [CFU]/mL Normal 3.8-11.6 [facility] Comment on above: Performed By: #### D IFF CBC, BMP ####[place] [id number] [facility] Basic Metabolic Panelon 07-0 Anion gap [Moles/Vol] 13.9 mmol/L Normal 6.0-15.0 e [facility] Comment on above: Performed By: #### S CAN CBC, BMP ####[address] Calcium [Mass/Vol] 10.6 mg/dL High 8.6-10.3 [facility] Comment on above: Performed By: #### S CAN CBC, BMP ####[address] Chloride [Moles/Vol] 110 mmol/L High 98-107 [facility] Comment on above: Performed By: #### S CAN CBC, BMP ####[address] CO2 [Moles/Vol] 21.8 mmol/L Normal 21.0-31.0 [facility] Comment on above: Performed By: #### S CAN CBC, BMP ####[place] [id number] [facility] Creatinine [Mass/Vol] 1.26 mg/dL High 0.60-1.20 [facility] Comment on above: Performed By: #### S CAN CBC, BMP ####[place] [id number] [facility] Creatinine Clr Calc Pharmacy 25.85 Normal [facility] Comment on above: Result Comment: PERF ORMED BY:[address] [place], [place] [id number] MEDICAL DIRECTORMAROKLBY S DANGELO M.D. Performed By: #### S CAN CBC, BMP ####[place] [address] GFR/1.73 sq M.predicted MDRD (S/P/Bld) [Vol rate/Area] 43.698 mL/min/{1.73_m2} Normal [facility] Comment on above: Performed By: #### S CAN CBC, BMP ####[place] [address] Glucose [Mass/Vol] 56 mg/dL Low 70-100 [facility] Comment on above: Result Comment: [facility] Glucose Reference Range is dependent on time and content of last meal. Glucose of more than 200 mg/dL in a nonstressed, ambulatory subject supports the diagnosis of Diabetes Mellitus. ADA recommended reference range Performed By: #### S CAN CBC, BMP ####[place] [address] Potassium [Moles/Vol] 3.7 mmol/L Normal 3.5-5.1 [facility] Comment on above: Performed By: #### S CAN CBC, BMP ####[place] [address] Sodium [Moles/Vol] 142 mmol/L Normal 136-145 [facility] Comment on above: Performed By: #### S CAN CBC, BMP ####[place] [address] Urea nitrogen [Mass/Vol] 31 mg/dL High 7-25 [facility] Comment on above: Performed By: #### S CAN CBC, BMP ####[place] [id number] [facility] MR head/brain wo conon 12-17 MR head/brain wo con Normal [facility] Scan and CBCon 12-17-2024 Acanthocytes Slight Normal [facility] Comment on above: Performed By: #### S CAN CBC, BMP ####[address] Basophils (Bld) [#/Vol] 0.3 10*3/uL High 0.0-0.2 [facility] Comment on above: Performed By: #### S CAN CBC, BMP ####[address] Basophils/100 WBC (Bld) 3.5 % Normal . T al [facility] Comment on above: Performed By: #### S CAN CBC, BMP ####[address] Crenated RBC Slight Normal [facility] Comment on above: Performed By: #### S CAN CBC, BMP ####[address] Eosinophils (Bld) [#/Vol] 0.3 10*3/uL Normal 0.0-0.45 [facility] Comment on above: Performed By: #### S CAN CBC, BMP ####[address] Eosinophils/100 WBC (Bld) 3.4 % Normal . [facility] Comment on above: Performed By: #### S CAN CBC, BMP ####[address] Erythrocyte distribution width (RBC) [Ratio] 14.6 % Normal 11.9-15.3 [facility] Comment on above: Performed By: #### S CAN CBC, BMP ####[address] Hematocrit (Bld) [Volume fraction] 33.4 % Low 34.0-46.4 [facility] Comment on above: Performed By: #### S CAN CBC, BMP ####[address] Hemoglobin (Bld) [Mass/Vol] 11.1 g/dL Low 11.8-15.4 [facility] Comment on above: Performed By: #### S CAN CBC, BMP ####[address] Large Platelets Slight Normal [facility] Comment on above: Result Comment: PERF ORMED BY:[address] [place], [place] [id number] MEDICAL DIRECTORSHANON PIERSON M.D. Performed By: #### S CAN CBC, BMP ####[place] [id number] [facility] Lymphocytes (Bld) [#/Vol] 2.3 10*3/uL Normal 1.00-4.8 [facility] Comment on above: Performed By: #### S CAN CBC, BMP ####[address] Lymphocytes/100 WBC (Bld) 27.2 % Normal . [facility] Comment on above: Performed By: #### S CAN CBC, BMP ####[address] MCH (RBC) [Entitic mass] 31.9 pg Normal 24.7-34.3 [facility] Comment on above: Performed By: #### S CAN CBC, BMP ####[address] MCV (RBC) [Entitic vol] 95.6 fL Normal 80-100 T [facility] Comment on above: Performed By: #### S CAN CBC, BMP ####[address] Mean Corpuscular HGB Conc 33.4 g/dL Normal 32.0-35.0 [facility] Comment on above: Performed By: #### S CAN CBC, BMP ####[place] [id number] [facility] Monocytes (Bld) [#/Vol] 1.1 10*3/uL High 0.0-0.8 [facility] Comment on above: Performed By: #### S CAN CBC, BMP ####[place] [id number] [facility] Monocytes/100 WBC (Bld) 13.1 % Normal . [facility] Comment on above: Performed By: #### S CAN CBC, BMP ####[address] Neutrophils (Bld) [#/Vol] 4.4 10*3/uL Normal 1.8-7.7 [facility] Comment on above: Performed By: #### S CAN CBC, BMP ####[address] Neutrophils/100 WBC (Bld) 52.8 % Normal . [facility] Comment on above: Performed By: #### S CAN CBC, BMP ####[address] NRBC% 0.2 /100{WBC} Normal 0-0.5 [facility] Comment on above: Performed By: #### S CAN CBC, BMP ####[address] Ovalocytes Slight Normal [facility] Comment on above: Performed By: #### S CAN CBC, BMP ####[address] Platelet Estimate Normal Normal Normal [facility] Comment on above: Performed By: #### S CAN CBC, BMP ####[address] Platelet mean volume (Bld) [Entitic vol] 9.6 fL Normal 6.3-10.7 [facility] Comment on above: Performed By: #### S CAN CBC, BMP ####[address] Platelets (Bld) [#/Vol] 231 10*3/uL Normal 150-450 [facility] Comment on above: Performed By: #### S CAN CBC, BMP ####[address] Poikilocytosis Slight Normal [facility] Comment on above: Performed By: #### S CAN CBC, BMP ####[address] RBC (Bld) [#/Vol] 3.50 10*6/uL Low 3.60-5.00 [facility] Comment on above: Performed By: #### S CAN CBC, BMP ####[address] WBC (Bld) [#/Vol] 8.3 10*3/uL Normal 3.8-11.6 [facility] Comment on above: Performed By: #### S CAN CBC, BMP ####[address] White Blood Count 8.3 [CFU]/mL Normal 3.8-11.6 [facility] Comment on above: Performed By: #### S CAN CBC, BMP ####[address] Basic Metabolic Panelon 07-0 Anion gap [Moles/Vol] 16.5 mmol/L High 6.0-15.0 [facility] Comment on above: Performed By: #### B MP, PHOS, LIPID, DIFF CBC ####[address] Calcium [Mass/Vol] 11.4 mg/dL High 8.6-10.3 [facility] Comment on above: Performed By: #### B MP, PHOS, LIPID, DIFF CBC ####[address] Chloride [Moles/Vol] 106 mmol/L Normal 98-107 [facility] Comment on above: Performed By: #### B MP, PHOS, LIPID, DIFF CBC ####[address] CO2 [Moles/Vol] 22.0 mmol/L Normal 21.0-31.0 [facility] Comment on above: Performed By: #### B MP, PHOS, LIPID, DIFF CBC ####[address] Creatinine [Mass/Vol] 1.48 mg/dL High 0.60-1.20 [facility] Comment on above: Performed By: #### B MP, PHOS, LIPID, DIFF CBC ####[address] Creatinine Clr Calc Pharmacy 21.98 Normal [facility] Comment on above: Performed By: #### B MP, PHOS, LIPID, DIFF CBC ####[address] GFR/1.73 sq M.predicted MDRD (S/P/Bld) [Vol rate/Area] 36.024 mL/min/{1.73_m2} Normal [facility] Comment on above: Performed By: #### B MP, PHOS, LIPID, DIFF CBC ####[address] Glucose [Mass/Vol] 70 mg/dL Normal 70-100 [facility] Comment on above: Result Comment: [facility] Glucose Reference Range is dependent on time and content of last meal. Glucose of more than 200 mg/dL in a nonstressed, ambulatory subject supports the diagnosis of Diabetes Mellitus. ADA recommended reference range Performed By: #### B MP, PHOS, LIPID, DIFF CBC ####[address] Potassium [Moles/Vol] 4.5 mmol/L Normal 3.5-5.1 [facility] Comment on above: Performed By: #### B MP, PHOS, LIPID, DIFF CBC ####[address] Sodium [Moles/Vol] 140 mmol/L Normal 136-145 [facility] Comment on above: Performed By: #### B MP, PHOS, LIPID, DIFF CBC ####[address] Urea nitrogen [Mass/Vol] 27 mg/dL High 7-25 [facility] Comment on above: Performed By: #### B MP, PHOS, LIPID, DIFF CBC ####[address] Diff and CBCon 07-08-2025 Acanthocytes Slight Normal [facility] Comment on above: Performed By: #### B MP, PHOS, LIPID, DIFF CBC ####[address] Basophils/100 WBC (Bld) 2 % Normal 0-2 T he [facility] Comment on above: Performed By: #### B MP, PHOS, LIPID, DIFF CBC ####[address] Eosinophils/100 WBC (Bld) 2 % Normal 1-3 [facility] Comment on above: Performed By: #### B MP, PHOS, LIPID, DIFF CBC ####[address] Erythrocyte distribution width (RBC) [Ratio] 14.5 % Normal 11.9-15.3 [facility] [facility] Comment on above: Performed By: #### B MP, PHOS, LIPID, DIFF CBC ####[address] Giant Platelet Tally 13 /100{WBC} Normal [facility] Comment on above: Performed By: #### B MP, PHOS, LIPID, DIFF CBC ####[address] Hematocrit (Bld) [Volume fraction] 37.5 % Normal 34.0-46.4 [facility] Comment on above: Performed By: #### B MP, PHOS, LIPID, DIFF CBC ####[address] Hemoglobin (Bld) [Mass/Vol] 12.5 g/dL Normal 11.8-15.4 [facility] Comment on above: Performed By: #### B MP, PHOS, LIPID, DIFF CBC ####[address] Large Platelets Slight Normal [facility] Comment on above: Result Comment: PERF ORMED BY:[address] [place], [place] [id number] MEDICAL LUÍS PIERSON M.D. Performed By: #### B MP, PHOS, LIPID, DIFF CBC ####[address] Lymphocytes/100 WBC (Bld) 32 % Normal 18-42 [facility] Comment on above: Performed By: #### B MP, PHOS, LIPID, DIFF CBC ####[address] MCH (RBC) [Entitic mass] 31.5 pg Normal 24.7-34.3 [facility] Comment on above: Performed By: #### B MP, PHOS, LIPID, DIFF CBC ####[address] MCV (RBC) [Entitic vol] 94.8 fL Normal 80-100 T [facility] Comment on above: Performed By: #### B MP, PHOS, LIPID, DIFF CBC ####[address] Mean Corpuscular HGB Conc 33.2 g/dL Normal 32.0-35.0 [facility] Comment on above: Performed By: #### B MP, PHOS, LIPID, DIFF CBC ####[address] Monocytes/100 WBC (Bld) 10 % Normal 2-11 T [facility] Comment on above: Performed By: #### B MP, PHOS, LIPID, DIFF CBC ####[address] Ovalocytes Slight Normal [facility] Comment on above: Performed By: #### B MP, PHOS, LIPID, DIFF CBC ####[address] Plasma Cells 1 % High 0-0 [facility] Comment on above: Performed By: #### B MP, PHOS, LIPID, DIFF CBC ####[address] Platelet Estimate Normal Normal Normal [facility] Comment on above: Performed By: #### B MP, PHOS, LIPID, DIFF CBC ####[address] Platelet mean volume (Bld) [Entitic vol] 9.9 fL Normal 6.3-10.7 [facility] Comment on above: Performed By: #### B MP, PHOS, LIPID, DIFF CBC ####[address] Platelet Morphology Normal Normal Normal [facility] Comment on above: Performed By: #### B MP, PHOS, LIPID, DIFF CBC ####[address] Platelets (Bld) [#/Vol] 276 10*3/uL Normal 150-450 [facility] Comment on above: Performed By: #### B MP, PHOS, LIPID, DIFF CBC ####[address] Poikilocytosis Slight Normal [facility] Comment on above: Performed By: #### B MP, PHOS, LIPID, DIFF CBC ####[address] RBC (Bld) [#/Vol] 3.96 10*6/uL Normal 3.60-5.00 [facility] Comment on above: Performed By: #### B MP, PHOS, LIPID, DIFF CBC ####[address] Segmented neutrophils/100 WBC (Bld) 53 % Normal 50-70 [facility] Comment on above: Performed By: #### B MP, PHOS, LIPID, DIFF CBC ####[address] WBC (Bld) [#/Vol] 8.4 10*3/uL Normal 3.8-11.6 [facility] Comment on above: Performed By: #### B MP, PHOS, LIPID, DIFF CBC ####[address] White Blood Count 8.4 [CFU]/mL Normal 3.8-11.6 [facility] Comment on above: Performed By: #### B MP, PHOS, LIPID, DIFF CBC ####[place] [id number] [facility] ECG 12 lead ECGon 12-16-2024 ECG 12 lead ECG Normal [facility] ECH echo transthoracicon ECH echo transthoracic Normal Th e [facility] Lipid Panelon 12-16-2024 Cholesterol [Mass/Vol] 194 mg/dL Normal 140-200 [facility] Comment on above: Result Comment: Chol less than 200 mg/dl low risk Chol 201-239 mg/dl borderline risk Chol 240 mg/dl and greater high risk Performed By: #### B MP, PHOS, LIPID, DIFF CBC ####[address] Cholesterol in HDL [Mass/Vol] 87 mg/dL Normal 23-92 [facility] Comment on above: Result Comment: HDL CHOL ATP-III CLASSIFICATION Cardiovascular Risk HDL > or equal to 60 mg/dL LOW HDL < 40 mg/dL HIGH Performed By: #### B MP, PHOS, LIPID, DIFF CBC ####[address] Cholesterol.total/Jovanna sterol in HDL [Mass ratio] 2.2 {ratio} Normal <5.0 [facility] Comment on above: Result Comment: PERF ORMED BY:[address] [place], [place] [phone] [facility]S PIERSON M.D. Performed By: #### B MP, PHOS, LIPID, DIFF CBC ####[address] [address] [facility] LDL Cholesterol,Calculated 89 mg/dL Normal 0-100 [facility] Comment on above: Result Comment: LDL ATP III CLASSIFICATION LDL less than 100 mg/dL Optimal LDL 100-129 mg/dL Near or above optimal LDL 130-159 mg/dL Borderline high LDL 160-189 mg/dL High LDL greater than 189 mg/dL Very high Performed By: #### B MP, PHOS, LIPID, DIFF CBC ####[place] [id number] [place] [id number] [facility] Triglyceride w/Reflex 92 mg/dL Normal 0-149 [facility] Comment on above: Result Comment: TRIG ATP III CLASSIFICATION TRIG less than 150 mg/dL Normal TRIG 150-199 mg/dL Borderline high TRIG 200-500 mg/dL High TRIG greater than 500 mg/dL Very high Standard traceable to the Center for Disease Conrtrol and Prevention (CDC) test method. Performed By: #### B MP, PHOS, LIPID, DIFF CBC ####[place] [id number] [facility] VLDL CHOLESTEROL 18 mg/dL Normal [facility] Comment on above: Performed By: #### B MP, PHOS, LIPID, DIFF CBC ####[address] Phosphoruson 12-16-2024 Phosphate [Mass/Vol] 3.0 mg/dL Normal 2.5-4.5 [facility] Comment on above: Performed By: #### B MP, PHOS, LIPID, DIFF CBC ####[place] [id number] [facility] Troponin I High Sensitivityo n 12-16-2024 Troponin I High Sensitivity 103 Off scale high 0-15 [facility] Comment on above: Result Comment: Crit ical Result : Called to and read back by: MYRTLE DUGAN at: 12/16/2024 01:38:46 by:MACRINA The Troponin units of report have been changed to meet the Chest Pain Accreditation requirement, element EC5.M1l2. Troponin units are changed from pg/ml to ng/L. Also, the decimal is removed and results are in whole numbers.PERFORMED BY:[address] [place], [place] [phone] MEDICAL DIRECTORSHANON PIERSON M.D. Performed By: #### H S TROP ####[place] [id number] [facility] Urine Cultureon 12-16-2024 Bacteria identified Cx Nom (U) Normal [facility] Comment on above: Performed By: #### C UU ####[address] [address] [facility] XR abdomen min 2Von 12-17-19 25 XR abdomen min 2V Normal [facility] Acetaminophen [Mass/volume] in Serum or PlasmaOrdered By: Jen Downing on 12-15-2024 Acetaminophen [Mass/Vol] ug/mL Low 10.0-30.0 [facility] Comment on above: Result Comment: PERF ORMED BY:[address] [place], [place] [phone] [facility]ICAL LU[facility]S PIERSON M.D. Performed By: #### T SH3, YUMIKO, T4F, SCAN CBC, HS TROP, PHOS, ACET, CK, BNP, CMP, ETOH, AMM, MG ####[address] [address] [facility] Alanine aminotransferase [En zymatic activity/volume] in Serum or PlasmaOrdered By: Jen Downing on 12-15-2024 ALT [Catalytic activity/Vol] U/L Low 7-52 [facility] Comment on above: Performed By: #### T SH3, YUMIKO, T4F, SCAN CBC, HS TROP, PHOS, ACET, CK, BNP, CMP, ETOH, AMM, MG ####[address] [address] [facility] Albumin [Mass/volume] in Ser um or Plasma by Bromocresol green (BCG) dye binding methoOrdered By: Jen Downing on 12-15-2024 Albumin BCG dye [Mass/Vol] 4.4 g/dL 3.5-5.7 [facility] Alkaline phosphatase [Enzyma tic activity/volume] in Serum or PlasmaOrdered By: Jen Downing on 12-15-2024 ALP [Catalytic activity/Vol] 136 U/L High 34-104 [facility] Comment on above: Performed By: #### T SH3, YUMIKO, T4F, SCAN CBC, HS TROP, PHOS, ACET, CK, BNP, CMP, ETOH, AMM, MG ####[address] [address] [place] Ammonia [Moles/volume] in Pl asmaOrdered By: Jen Downing on 12-15-2024 Ammonia (P) [Moles/Vol] 47 umol/L High 11-35 [facility] Comment on above: Result Comment: PERF ORMED BY:[place] [address] [address] [place]ACHRatna[place], [place] [phone] [facility] PIERSON M.D. Performed By: #### T SH3, YUMIKO, T4F, SCAN CBC, HS TROP, PHOS, ACET, CK, BNP, CMP, ETOH, AMM, MG ####[address] [address] [facility] Appearance of UrineOrdered B y: Jen Downing on 12-15-2024 Appearance (U) Clear Normal Clear [facility] Comment on above: Order Comment: Name Collection Type:: Clean-Voided Midstream Performed By: #### A DDONUAPLUS ####[place] [id number] [facility] Aspartate aminotransferase [ Enzymatic activity/volume] in Serum or PlasmaOrdered By: Jen Downing on 12-15-2024 AST [Catalytic activity/Vol] 12 U/L Low 13-39 [facility] Comment on above: Performed By: #### T SH3, YUMIKO, T4F, SCAN CBC, HS TROP, PHOS, ACET, CK, BNP, CMP, ETOH, AMM, MG ####[place] [id number] [facility] BNP ser/plasOrdered By: Joanna Downing on 12-15-2024 Natriuretic peptide B (Bld) [Mass/Vol] 176.0 pg/mL High 5-100 [facility] Comment on above: Result Comment: PERF ORMED BY:[place] [address] [address]IGGSGerardoSHIRLEYVERO [place]ACH, [place] [phone] [facility] PIERSON M.D. Performed By: #### T SH3, YUMIKO, T4F, SCAN CBC, HS TROP, PHOS, ACET, CK, BNP, CMP, ETOH, AMM, MG ####[place] [id number] [facility] Bacteria [Presence] in Urine by AutomatedOrdered By: Jen Downing on 12-15-2024 Bacteria Auto Ql (U) Rare [HPF] None Seen [facility] Basophils [#/volume] in Bloo d by Automated countOrdered By: Jen Downing on 12-15-2024 Basophils (Bld) [#/Vol] 0.1 10*3/uL Normal 0.0-0.2 [facility] Comment on above: Performed By: #### T SH3, YUMIKO, T4F, SCAN CBC, HS TROP, PHOS, ACET, CK, BNP, CMP, ETOH, AMM, MG ####[place] [id number] Basophils/100 leukocytes in Blood by Automated countOrdered By: Jen Downing on 12-15-2024 Basophils/100 WBC (Bld) 0.8 % Normal . [facility] Comment on above: Performed By: #### T SH3, YUMIKO, T4F, SCAN CBC, HS TROP, PHOS, ACET, CK, BNP, CMP, ETOH, AMM, MG ####[place] [id number] [place] [id number] [facility] Bilirubin Test strip Ql (U)O rdered By: Jen Downing on 12-15-2024 Bilirubin Ql (U) Negative Negative [facility] Bilirubin.total [Mass/volume ] in Serum or PlasmaOrdered By: Jen Downing on 12-15-2024 Bilirubin [Mass/Vol] 0.5 mg/dL Normal 0.3-1.0 [facility] Comment on above: Performed By: #### T SH3, YUMIKO, T4F, SCAN CBC, HS TROP, PHOS, ACET, CK, BNP, CMP, ETOH, AMM, MG ####[address] head/brain wo conon 12-15 CT head/brain wo con Normal [facility] Calcium [Mass/volume] in Ser um or PlasmaOrdered By: Jen Downing on 12-15-2024 Calcium [Mass/Vol] 11.2 mg/dL High 8.6-10.3 [facility] Comment on above: Performed By: #### T SH3, YUMIKO, T4F, SCAN CBC, HS TROP, PHOS, ACET, CK, BNP, CMP, ETOH, AMM, MG ####[address] Carbon dioxide, total [Moles /volume] in Serum or PlasmaOrdered By: Jen Downing on 12-15-2024 CO2 [Moles/Vol] 23.7 mmol/L Normal 21.0-31.0 [facility] Comment on above: Performed By: #### T SH3, YUMIKO, T4F, SCAN CBC, HS TROP, PHOS, ACET, CK, BNP, CMP, ETOH, AMM, MG ####[address] Chloride [Moles/volume] in S sonya or PlasmaOrdered By: Jen Downing on 12-15-2024 Chloride [Moles/Vol] 105 mmol/L Normal 98-107 [facility] Comment on above: Performed By: #### T SH3, YUMIKO, T4F, SCAN CBC, HS TROP, PHOS, ACET, CK, BNP, CMP, ETOH, AMM, MG ####[address] Color of Urine by AutoOrdere d By: Jen Downing on 12-15-2024 Color (U) Light-yellow Normal Yellow [facility] Comment on above: Order Comment: Name Collection Type:: Clean-Voided Midstream Performed By: #### A DDONUAPLUS ####[place] [id number] [facility] Comprehensive Metabolic Pane rm 12-15-2024 Albumin [Mass/Vol] 4.4 g/dL Normal 3.5-5.7 [facility] Comment on above: Performed By: #### T SH3, YUMIKO, T4F, SCAN CBC, HS TROP, PHOS, ACET, CK, BNP, CMP, ETOH, AMM, MG ####[place] [id number] [place] [id number] [facility] Creatinine Clr Calc Pharmacy 25.62 Normal [facility] Comment on above: Performed By: #### T SH3, YUMIKO, T4F, SCAN CBC, HS TROP, PHOS, ACET, CK, BNP, CMP, ETOH, AMM, MG ####[place] [id number] [facility] GFR/1.73 sq M.predicted MDRD (S/P/Bld) [Vol rate/Area] 43.286 mL/min/{1.73_m2} Normal [facility] Comment on above: Performed By: #### T SH3, YUMIKO, T4F, SCAN CBC, HS TROP, PHOS, ACET, CK, BNP, CMP, ETOH, AMM, MG ####[address] Creatine kinase [Enzymatic a ctivity/volume] in Serum or PlasmaOrdered By: Jen Downing on 12-15-2024 CK [Catalytic activity/Vol] 28 U/L Low 30-223 [facility] Comment on above: Performed By: #### T SH3, YUMIKO, T4F, SCAN CBC, HS TROP, PHOS, ACET, CK, BNP, CMP, ETOH, AMM, MG ####[place] [id number] [facility] Creatinine [Mass/volume] in Serum or PlasmaOrdered By: Jen Downing on 12-15-2024 Creatinine [Mass/Vol] 1.27 mg/dL High 0.60-1.20 [facility] Comment on above: Performed By: #### T SH3, YUMIKO, T4F, SCAN CBC, HS TROP, PHOS, ACET, CK, BNP, CMP, ETOH, AMM, MG ####[place] [id number] [facility] Dipstick and Microscopicon 0 12-15-2024 Bacteria,Urine Rare Normal None Seen [facility] Comment on above: Order Comment: Name Collection Type:: Clean-Voided Midstream Performed By: #### A DDONUAPLUS ####[place] [id number] [facility] Bilirubin,Urine Negative Normal Negative [facility] Comment on above: Order Comment: Name Collection Type:: Clean-Voided Midstream Performed By: #### A DDONUAPLUS ####[address] [address] [facility] Glucose Ql (U) Normal Normal Normal [facility] Comment on above: Order Comment: Name Collection Type:: Clean-Voided Midstream Performed By: #### A DDONUAPLUS ####[address] [address] [facility] Hyaline Casts,Urine None Normal 0-8 [facility] Comment on above: Order Comment: Name Collection Type:: Clean-Voided Midstream Performed By: #### A DDONUAPLUS ####[address] [address] [facility] Mucus,Urine Rare Normal [facility] Comment on above: Order Comment: Name Collection Type:: Clean-Voided Midstream Result Comment: PERF ORMED BY:[address] ROACHRatnaEV, [place] [phone] MEDICAL LUÍS PIERSON M.D. Performed By: #### A DDONUAPLUS ####[address] [address] [facility] Nitrite,Urine Negative Normal Negative [facility] Comment on above: Order Comment: Name Collection Type:: Clean-Voided Midstream Performed By: #### A DDONUAPLUS ####[place] [id number] [facility] Occult Blood,Urine 2+ Normal Negative [facility] Comment on above: Order Comment: Name Collection Type:: Clean-Voided Midstream Result Comment: PERF ORMED BY:[address] ROACHRatnaEV, [place] [phone] [facility]ICAL LUÍS PIERSON M.D. Performed By: #### A DDONUAPLUS ####[address] [address] [facility] RBC,Urine Innumerable Normal 0-4 [facility] Comment on above: Order Comment: Name Collection Type:: Clean-Voided Midstream Performed By: #### A DDONUAPLUS ####[address] [place] [address] [place] Specificy [place],Urine 1.012 Normal 1.00 1-1.03 0 [facility] Comment on above: Order Comment: Name Collection Type:: Clean-Voided Midstream Performed By: #### A DDONUAPLUS ####[address] Squamous Epithelial Cell,Urine 1-2 Normal 0-2 [facility] Comment on above: Order Comment: Name Collection Type:: Clean-Voided Midstream Performed By: #### A DDONUAPLUS ####[address] Urobilinogen,Urine Normal Normal Normal [facility] Comment on above: Order Comment: Name Collection Type:: Clean-Voided Midstream Performed By: #### A DDONUAPLUS ####[address] WBC,Urine 10-19 Normal 0-4 [facility] Comment on above: Order Comment: Name Collection Type:: Clean-Voided Midstream Performed By: #### A DDONUAPLUS ####[address] ECG 12 lead ECGon 12-15-2024 ECG 12 lead ECG Normal [facility] ECG 12 lead ECG Normal [facility] Eosinophils [#/volume] in Bl ood by Automated countOrdered By: Jen Downing on 12-15-2024 Eosinophils (Bld) [#/Vol] 0.0 10*3/uL Normal 0.0-0.45 [facility] Comment on above: Performed By: #### T SH3, YUMIKO, T4F, SCAN CBC, HS TROP, PHOS, ACET, CK, BNP, CMP, ETOH, AMM, MG ####[address] Eosinophils/100 leukocytes i n Blood by Automated countOrdered By: Jen Downing on 12-15-2024 Eosinophils/100 WBC (Bld) 0.5 % Normal . [facility] Comment on above: Performed By: #### T SH3, YUMIKO, T4F, SCAN CBC, HS TROP, PHOS, ACET, CK, BNP, CMP, ETOH, AMM, MG ####[address] Epithelial cells.squamous [# /area] in Urine sediment by Automated countOrdered By: Jen Downing on 12-15-2024 Epithelial cells.squamous Auto (Urine sed) [#/Area] 1-2 [HPF] 0-2 [facility] Erythrocyte distribution wid th [Ratio] by Automated countOrdered By: Jen Downing on 12-15-2024 Erythrocyte distribution width (RBC) [Ratio] 14.2 % Normal 11.9-15.3 [facility] Comment on above: Performed By: #### T SH3, YUMIKO, T4F, SCAN CBC, HS TROP, PHOS, ACET, CK, BNP, CMP, ETOH, AMM, MG ####[address] Erythrocyte morphology findi ng [Identifier] in BloodOrdered By: Jen Downing on 12-15-2024 RBC morphology finding Nom (Bld) Normal Normal Normal [facility] Comment on above: Performed By: #### T SH3, YUMIKO, T4F, SCAN CBC, HS TROP, PHOS, ACET, CK, BNP, CMP, ETOH, AMM, MG ####[address] Erythrocytes [#/area] in Uri ne sediment by Automated countOrdered By: Jen Downing on 12-15-2024 RBC Auto (Urine sed) [#/Area] Innumerable [HPF] High 0-4 [facility] Erythrocytes [#/volume] in B lood by Automated countOrdered By: Jen Downing on 12-15-2024 RBC (Bld) [#/Vol] 3.98 10*6/uL Normal 3.60-5.00 [facility] Comment on above: Performed By: #### T SH3, YUMIKO, T4F, SCAN CBC, HS TROP, PHOS, ACET, CK, BNP, CMP, ETOH, AMM, MG ####[address] Ethanol [Mass/volume] in Ser um or PlasmaOrdered By: Jen Downing on 12-15-2024 Ethanol [Mass/Vol] mg/dL Normal [facility] Comment on above: Performed By: #### T SH3, YUMIKO, T4F, SCAN CBC, HS TROP, PHOS, ACET, CK, BNP, CMP, ETOH, AMM, MG ####[facility] [place] [address] [facility] Ethyl Alcohol Profileon Percent Ethanol Not performed Normal [facility] Comment on above: Result Comment: PERF ORMED BY:[address] [place], [place] [phone] MEDICAL DIRECTORSHANON PIERSON M.D. Performed By: #### T SH3, YUMIKO, T4F, SCAN CBC, HS TROP, PHOS, ACET, CK, BNP, CMP, ETOH, AMM, MG ####[place] [id number] [place] [id number] [facility] Glucose [Mass/volume] in Ser um or PlasmaOrdered By: Jen Downing on 12-15-2024 Glucose [Mass/Vol] 86 mg/dL Normal 70-100 [facility] Comment on above: ADA recommended refe rence rangeRandom Glucose Reference Range is dependent on time and content of last meal. Glucose of more than 200 mg/dL in a nonstressed, ambulatory subject supports the diagnosis of Diabetes Mellitus. Result Comment: [place] om Glucose Reference Range is dependent on time and content of last meal. Glucose of more than 200 mg/dL in a nonstressed, ambulatory subject supports the diagnosis of Diabetes Mellitus. ADA recommended reference range Performed By: #### T SH3, YUMIKO, T4F, SCAN CBC, HS TROP, PHOS, ACET, CK, BNP, CMP, ETOH, AMM, MG ####[place] [id number] [place] [id number] [facility] Glucose [Mass/volume] in Uri ne by Test stripOrdered By: Jen Downing on 12-15-2024 Glucose Test strip (U) [Mass/Vol] Normal mg/dL Normal [facility] Hematocrit [Volume Fraction] of Blood by Automated countOrdered By: Jen Downing on 12-15-2024 Hematocrit (Bld) [Volume fraction] 37.7 % Normal 34.0-46.4 [facility] Comment on above: Performed By: #### T SH3, YUMIKO, T4F, SCAN CBC, HS TROP, PHOS, ACET, CK, BNP, CMP, ETOH, AMM, MG ####[place] [id number] [facility] Hemoglobin Test strip Ql (U) Ordered By: Jen Downing on 12-15-2024 Hemoglobin Ql (U) 2+ High Negative [facility] Hemoglobin [Mass/volume] in BloodOrdered By: Jen Downing on 12-15-2024 Hemoglobin (Bld) [Mass/Vol] 12.4 g/dL Normal 11.8-15.4 [facility] Comment on above: Performed By: #### T SH3, YUMIKO, T4F, SCAN CBC, HS TROP, PHOS, ACET, CK, BNP, CMP, ETOH, AMM, MG ####[address] Hyaline casts [#/area] in Ur ine sediment by Automated countOrdered By: Jen Downing on 12-15-2024 Hyaline casts Auto (Urine sed) [#/Area] None [LPF] 0-8 [facility] Ketones [Presence] in Urine by Test stripOrdered By: Jen Downing on 12-15-2024 Ketones Ql (U) Trace Normal Negative [facility] Comment on above: Order Comment: Name Collection Type:: Clean-Voided Midstream Performed By: #### A DDONUAPLUS ####[place] [id number] [facility] Leukocyte esterase [Presence ] in Urine by Test stripOrdered By: Jen Downing on 12-15-2024 Leukocyte esterase Test strip Ql (U) Negative Normal Negative [facility] [facility] Comment on above: Order Comment: Name Collection Type:: Clean-Voided Midstream Performed By: #### A DDONUAPLUS ####[place] [id number] [place] Leukocytes [#/area] in Urine sediment by Automated countOrdered By: Jen Downing on 12-15-2024 WBC Auto (Urine sed) [#/Area] 10-19 [HPF] High 0-4 [facility] Leukocytes [#/volume] correc ej for nucleated erythrocytes in Blood by Automated counOrdered By: Jen Downing on 12-15-2024 WBC corrected for nucl RBC Auto (Bld) [#/Vol] 7.3 10*3/uL 3.8-11.6 [facility] Leukocytes [#/volume] in Blo od by Automated countOrdered By: Jen Downing on 12-15-2024 WBC (Bld) [#/Vol] 7.3 10*3/uL Normal 3.8-11.6 [facility] Comment on above: Performed By: #### T SH3, YUMIKO, T4F, SCAN CBC, HS TROP, PHOS, ACET, CK, BNP, CMP, ETOH, AMM, MG ####[facility] [address] [place] [id number] [place] Lymphocytes [#/volume] in Bl ood by Automated countOrdered By: Jen Downing on 12-15-2024 Lymphocytes (Bld) [#/Vol] 1.9 10*3/uL Normal 1.00-4.8 [facility] Comment on above: Performed By: #### T SH3, YUMIKO, T4F, SCAN CBC, HS TROP, PHOS, ACET, CK, BNP, CMP, ETOH, AMM, MG ####[facility] [place] [id number] [place] Lymphocytes/100 leukocytes i n Blood by Automated countOrdered By: Jen Downing on 12-15-2024 Lymphocytes/100 WBC (Bld) 25.4 % Normal . [facility] Comment on above: Performed By: #### T SH3, YUMIKO, T4F, SCAN CBC, HS TROP, PHOS, ACET, CK, BNP, CMP, ETOH, AMM, MG ####[facility] [id number] [place] [address] [place] MCH [Entitic mass] by Automa ej countOrdered By: Jen Downing on 12-15-2024 MCH (RBC) [Entitic mass] 31.1 pg Normal 24.7-34.3 [facility] Comment on above: Performed By: #### T SH3, YUMIKO, T4F, SCAN CBC, HS TROP, PHOS, ACET, CK, BNP, CMP, ETOH, AMM, MG ####[address] MCHC Auto (RBC) [Mass/Vol]Or dered By: Jen Downing on 12-15-2024 MCHC (RBC) [Mass/Vol] 32.9 g/dL 32.0-35.0 [facility] MCV [Entitic volume] by Auto mated countOrdered By: Jen Downing on 12-15-2024 MCV (RBC) [Entitic vol] 94.6 fL Normal 80-100 [facility] Comment on above: Performed By: #### T SH3, YUMIKO, T4F, SCAN CBC, HS TROP, PHOS, ACET, CK, BNP, CMP, ETOH, AMM, MG ####[address] Magnesiumon 12-15-2024 Magnesium [Mass/Vol] 2.1 mg/dL Normal 1.9-2.7 [facility] Comment on above: Performed By: #### T SH3, YUMIKO, T4F, SCAN CBC, HS TROP, PHOS, ACET, CK, BNP, CMP, ETOH, AMM, MG ####[address] Monocyte distribution width [Entitic volume] in Blood by AutomatedOrdered By: Jen Downing on 12-15-2024 Monocyte distribution width Auto (Bld) [Entitic vol] 18.52 % 0.00-20.00 [facility] Monocytes [#/volume] in Bloo d by Automated countOrdered By: Jen Downing on 12-15-2024 Monocytes (Bld) [#/Vol] 0.9 10*3/uL High 0.0-0.8 [facility] Comment on above: Performed By: #### T SH3, YUMIKO, T4F, SCAN CBC, HS TROP, PHOS, ACET, CK, BNP, CMP, ETOH, AMM, MG ####[place] [address] [place] [id number] [facility] Monocytes/100 leukocytes in Blood by Automated countOrdered By: Jen Downing on 12-15-2024 Monocytes/100 WBC (Bld) 12.3 % Normal . [facility] Comment on above: Performed By: #### T SH3, YUMIKO, T4F, SCAN CBC, HS TROP, PHOS, ACET, CK, BNP, CMP, ETOH, AMM, MG ####[place] [id number] [facility] Mucus [Presence] in Urine by AutomatedOrdered By: Jen Downing on 12-15-2024 Mucus Auto Ql (U) Rare [LPF] [facility] Neutrophils [#/volume] in Bl ood by Automated countOrdered By: Jen Downing on 12-15-2024 Neutrophils (Bld) [#/Vol] 4.5 10*3/uL Normal 1.8-7.7 [facility] Comment on above: Performed By: #### T SH3, YUMIKO, T4F, SCAN CBC, HS TROP, PHOS, ACET, CK, BNP, CMP, ETOH, AMM, MG ####[place] [address] [place] [id number] [facility] Neutrophils/100 leukocytes i n Blood by Automated countOrdered By: Jen Downing on 12-15-2024 Neutrophils/100 WBC (Bld) 61.0 % Normal . [facility] Comment on above: Performed By: #### T SH3, YUMIKO, T4F, SCAN CBC, HS TROP, PHOS, ACET, CK, BNP, CMP, ETOH, AMM, MG ####[place] [id number] [facility] Nitrite Test strip Ql (U)Ord ered By: Jen Downing on 12-15-2024 Nitrite Ql (U) Negative Negative [facility] No Panel InformationOrdered By: Jen Downing on 12-15-2024 Estimated GFR (CKD-EPI) 43.286 mL/Min [facility] Creatinine Clearance (Chem 25.62 [facility] Nucleated erythrocytes [Pres ence] in Blood by Automated countOrdered By: Jen Downing on 12-15-2024 Nucleated RBC Auto Ql (Bld) 0.1 /100{WBC} 0-0.5 [facility] Parathyroid Hormone Intacton 12-15-2024 Parathyroid Hormone Intact 61.0 pg/mL Normal 12-88 [facility] Comment on above: Result Comment: PERF ORMED BY:[address] [place], [place] [phone] MEDICAL DIRECTORSHANON PIERSON M.D. Performed By: #### P TH ####[address] [address] [facility] Phosphoruson 12-15-2024 Phosphate [Mass/Vol] 3.0 mg/dL Normal 2.5-4.5 [facility] Comment on above: Performed By: #### T SH3, YUMIKO, T4F, SCAN CBC, HS TROP, PHOS, ACET, CK, BNP, CMP, ETOH, AMM, MG ####[address] [address] [facility] Platelet adequacy [Presence] in Blood by Light microscopyOrdered By: Jen Downnig on 12-15-2024 Platelets LM Ql (Bld) Normal Normal [facility] Platelet mean volume [Entiti c volume] in Blood by Automated countOrdered By: Jen Downing on 12-15-2024 Platelet mean volume (Bld) [Entitic vol] 9.9 fL Normal 6.3-10.7 [facility] Comment on above: Performed By: #### T SH3, YUMIKO, T4F, SCAN CBC, HS TROP, PHOS, ACET, CK, BNP, CMP, ETOH, AMM, MG ####[address] [address] [facility] Platelet morphology finding [Identifier] in BloodOrdered By: Jen Downign on 12-15-2024 Platelet morphology finding Nom (Bld) N/A [facility] Platelets Large [Presence] i n Blood by Light microscopyOrdered By: Jen Downing on 12-15-2024 Platelets Large LM Ql (Bld) Slight [facility] Platelets [#/volume] in Bloo d by Automated countOrdered By: Jen Downing on 12-15-2024 Platelets (Bld) [#/Vol] 276 10*3/uL Normal 150-450 [facility] Comment on above: Performed By: #### T SH3, YUMIKO, T4F, SCAN CBC, HS TROP, PHOS, ACET, CK, BNP, CMP, ETOH, AMM, MG ####[address] [address] [facility] Potassium [Moles/volume] in Serum or PlasmaOrdered By: Jen Downing on 12-15-2024 Potassium [Moles/Vol] 4.3 mmol/L Normal 3.5-5.1 [facility] Comment on above: Performed By: #### T SH3, YUMIKO, T4F, SCAN CBC, HS TROP, PHOS, ACET, CK, BNP, CMP, ETOH, AMM, MG ####[place] [id number] [facility] Protein [Mass/volume] in Ser um or PlasmaOrdered By: Jen Downing on 12-15-2024 Protein [Mass/Vol] 6.8 g/dL Normal 6.4-8.9 [facility] Comment on above: Performed By: #### T SH3, YUMIKO, T4F, SCAN CBC, HS TROP, PHOS, ACET, CK, BNP, CMP, ETOH, AMM, MG ####[place] [id number] [facility] Protein [Mass/volume] in Uri ne by Test stripOrdered By: Jen Downing on 12-15-2024 Protein (U) [Mass/Vol] 50 mg/dL Normal Negative [facility] Comment on above: Order Comment: Name Collection Type:: Clean-Voided Midstream Performed By: #### A DDONUAPLUS ####[address] [address] [facility] Salicylateon 12-15-2024 Salicylate <1.5 Low 15.0-30.0 [facility] Comment on above: Result Comment: Sera ents treated with Sulfasalazine may generate a false high result for Salicylate. Performed By: #### T SH3, YUMIKO, T4F, SCAN CBC, HS TROP, PHOS, ACET, CK, BNP, CMP, ETOH, AMM, MG ####[address] Salicylates [Mass/volume] in Serum or PlasmaOrdered By: Jen Downing on 12-15-2024 Salicylates [Mass/Vol] mg/dL Low 15.0-30.0 [facility] Comment on above: Patients treated wit h Sulfasalazine may generate a false high result for Salicylate. Scan and CBCon 12-15-2024 Large Platelets Slight Normal [facility] Comment on above: Result Comment: PERF ORMED BY:[address] [place], [place] [phone] MEDICAL DIRECTORSHANON PIERSON M.D. Performed By: #### T SH3, YUMIKO, T4F, SCAN CBC, HS TROP, PHOS, ACET, CK, BNP, CMP, ETOH, AMM, MG ####[address] Mean Corpuscular HGB Conc 32.9 g/dL Normal 32.0-35.0 [facility] Comment on above: Performed By: #### T SH3, YUMIKO, T4F, SCAN CBC, HS TROP, PHOS, ACET, CK, BNP, CMP, ETOH, AMM, MG ####[address] Monocytes/100 WBC (Bld) 18.52 % Normal 0.00-20.00 [facility] Comment on above: Performed By: #### T SH3, YUMIKO, T4F, SCAN CBC, HS TROP, PHOS, ACET, CK, BNP, CMP, ETOH, AMM, MG ####[address] NRBC% 0.1 /100{WBC} Normal 0-0.5 [facility] Comment on above: Performed By: #### T SH3, YUMIKO, T4F, SCAN CBC, HS TROP, PHOS, ACET, CK, BNP, CMP, ETOH, AMM, MG ####[address] Platelet Estimate Normal Normal Normal [facility] Comment on above: Performed By: #### T SH3, YUMIKO, T4F, SCAN CBC, HS TROP, PHOS, ACET, CK, BNP, CMP, ETOH, AMM, MG ####[place] [address] White Blood Count 7.3 [CFU]/mL Normal 3.8-11.6 [facility] Comment on above: Performed By: #### T SH3, YUMIKO, T4F, SCAN CBC, HS TROP, PHOS, ACET, CK, BNP, CMP, ETOH, AMM, MG ####[address] Serum globulin measurement b y calculation (mass/volume)Ordered By: Jen Downing on 12-15-2024 Globulin (S) [Mass/Vol] 2.4 g/dL Normal [facility] Comment on above: Performed By: #### T SH3, YUMIKO, T4F, SCAN CBC, HS TROP, PHOS, ACET, CK, BNP, CMP, ETOH, AMM, MG ####[address] Serum or plasma albumin/glob ulin mass ratioOrdered By: Jen Downing on 12-15-2024 Albumin/Globulin [Mass ratio] 1.8 {ratio} Normal [facility] Comment on above: Performed By: #### T SH3, YUMIKO, T4F, SCAN CBC, HS TROP, PHOS, ACET, CK, BNP, CMP, ETOH, AMM, MG ####[address] Serum or plasma anion gap de terminationOrdered By: Jen Downing on 12-15-2024 Anion gap [Moles/Vol] 12.6 mmol/L Normal 6.0-15.0 [facility] Comment on above: Performed By: #### T SH3, YUMIKO, T4F, SCAN CBC, HS TROP, PHOS, ACET, CK, BNP, CMP, ETOH, AMM, MG ####[address] Serum or plasma ethanol rossy urement (mass/volume)Ordered By: Jen Downing on 12-15-2024 Ethanol [Mass/Vol] TNP [facility] Comment on above: Test not performed Sodium [Moles/volume] in Ser um or PlasmaOrdered By: Jen Downing on 12-15-2024 Sodium [Moles/Vol] 137 mmol/L Normal 136-145 [facility] Comment on above: Performed By: #### T SH3, YUMIKO, T4F, SCAN CBC, HS TROP, PHOS, ACET, CK, BNP, CMP, ETOH, AMM, MG ####[place] [address] [place] [address] [facility] Specific gravity Test strip (U) [Rel density]Ordered By: Jen Downing on 12-15-2024 Specific gravity (U) [Rel density] 1.012 1.001-1.03 0 [facility] Thyrotropin [Units/volume] i n Serum or PlasmaOrdered By: Jen Downing on 12-15-2024 TSH Qn 0.81 m[IU]/L Normal 0.45-5.33 [facility] Comment on above: Result Comment: PERF ORMED BY:[address] [place], [place] [phone] MEDICAL DIRECTORSHANON PIERSON M.D. Performed By: #### T SH3, YUMIKO, T4F, SCAN CBC, HS TROP, PHOS, ACET, CK, BNP, CMP, ETOH, AMM, MG ####[place] [id number] [facility] Thyroxine (T4) free [Mass/vo lume] in Serum or PlasmaOrdered By: Jen Downing on 12-15-2024 Free T4 [Mass/Vol] 1.45 ng/dL High 0.61-1.12 [facility] Comment on above: Performed By: #### T SH3, YUMIKO, T4F, SCAN CBC, HS TROP, PHOS, ACET, CK, BNP, CMP, ETOH, AMM, MG ####[place] [id number] [facility] Troponin I High Sensitivityo n 12-15-2024 Troponin I High Sensitivity 102 Off scale high 0-15 [facility] Comment on above: Result Comment: Crit ical Result : Called to and read back by: MYRTLE DUGAN at: 12/15/2024 21:26:49 by:DERICK The Troponin units of report have been changed to meet the Chest Pain Accreditation requirement, element EC5.M1l2. Troponin units are changed from pg/ml to ng/L. Also, the decimal is removed and results are in whole numbers.PERFORMED BY:[address] [place], [place] [phone] MEDICAL DIRECTORSHANON PIERSON M.D. Performed By: #### H S TROP ####[address] [address] [facility] Troponin I High Sensitivity 113 Off scale high 0-15 [facility] Comment on above: Result Comment: Crit ical Result : Called to and read back by: DARRIUS CALDERA at: 12/15/2024 17:51:56 by:DERICK The Troponin units of report have been changed to meet the Chest Pain Accreditation requirement, element EC5.M1l2. Troponin units are changed from pg/ml to ng/L. Also, the decimal is removed and results are in whole numbers.PERFORMED BY:[address] [place], [place] [phone] MEDICAL DIRECTORSHANON PIERSON M.D. Performed By: #### H S TROP ####[address] [address] [facility] Troponin I High Sensitivity 108 Off scale high 0-15 [facility] Comment on above: Result Comment: Crit ical Result : Called to and read back by: GUS TRIANA at: 12/15/2024 14:03:36 by:MACRINA The Troponin units of report have been changed to meet the Chest Pain Accreditation requirement, element EC5.M1l2. Troponin units are changed from pg/ml to ng/L. Also, the decimal is removed and results are in whole numbers.PERFORMED BY:[address] [place], [place] [phone] MEDICAL DIRECTORSHANON PIERSON M.D. Performed By: #### H S TROP ####[address] [address] [facility] Troponin I High Sensitivity 111 Off scale high 0-15 [facility] Comment on above: Result Comment: Rishabh icashree Result : Called to and read back by: GUS TRIANA at: 12/15/2024 12:25:41 by:M The Troponin units of report have been changed to meet the Chest Pain Accreditation requirement, element EC5.M1l2. Troponin units are changed from pg/ml to ng/L. Also, the decimal is removed and results are in whole numbers.PERFORMED BY:[address], [place] [phone] MEDICAL LUÍS PIERSON M.D. Performed By: #### T SH3, YUMIKO, T4F, SCAN CBC, HS TROP, PHOS, ACET, CK, BNP, CMP, ETOH, AMM, MG ####[place] [address] [place] [address] [facility] Troponin I.cardiac [Mass/vol ume] in Serum or Plasma by Detection limit <= 0.01 ng/mLOrdered By: Jen Downing on 12-15-2024 Troponin I.cardiac DL <= 0.01 ng/mL [Mass/Vol] 108 ng/L Critically high 0-15 [facility] Comment on above: Critical Result : Ca lled to and read back by: GUS TRIANA at: 12/15/2024 14:03:36 by:MLGThe Troponin units of report have been changed to meet the Chest Pain Accreditation requirement, element EC5.M1l2. Troponin units are changed from pg/ml to ng/L. Also, the decimal is removed and results are in whole numbers. Urea nitrogen [Mass/volume] in Serum or PlasmaOrdered By: Jen Downing on 12-15-2024 Urea nitrogen [Mass/Vol] 21 mg/dL Normal 7-25 [facility] Comment on above: Performed By: #### T SH3, YUMIKO, T4F, SCAN CBC, HS TROP, PHOS, ACET, CK, BNP, CMP, ETOH, AMM, MG ####[facility] [id number] [place] [address] [facility] Urobilinogen Test strip (U) [Mass/Vol]Ordered By: Jen Downing on 12-15-2024 Urobilinogen (U) [Mass/Vol] Normal mg/dL Normal [facility] X-ray reportOrdered By: Jared Henson on 12-15-2024 Study report [facility] [address] [place] [address] [place] [address] XRay Report Signed Patient: Judith Land MR#: [id number] : 1945 Acct:[id number] Age/Sex: 79 / F ADM Date: 5 Loc: ER Room: Type: [facility] ER Attending Dr: Copies to: Jen Downing MD~ Ordering Provider: Jen Downing MD Date of Service: 12/15/24 XR/XR chest 2V*: Altered Mental Status Plain film chest 2 view HISTORY: Confusion. COMPARISON: 12/14/2024 FINDINGS: SUPPORT DEVICES: None POSTSURGICAL CHANGES: None HEART: Within normal limits PULMONARY FAIZA: Within normal limits MEDIASTINUM: Unremarkable LUNGS AND PLEURA: No acute lung process, pleural effusion or pneumothorax identified. Minor interstitial changes BONY STRUCTURES: Intact ADDITIONAL FINDINGS None XR/XR chest 2V* IMPRESSION: No acute process. Impression dictated by: Andrew Henson M.D. 12/15/2024 12:20 PM Dictation Location: [place] [address] Transcribed By: [facility] 12/15/24 1220 Dictated By: Andrew Henson DO 12/15/24 1219 Signed By: 12/15/24 1220 [facility] XR chest 2V*on 12-15-2024 XR chest 2V* Normal [facility] pH of Urine by Test stripOrd ered By: Jen Downing on 12-15-2024 pH (U) 6.5 [pH] Normal 5.0-9.0 [facility] Comment on above: Order Comment: Name Collection Type:: Clean-Voided Midstream Performed By: #### A DDONUAPLUS ####[place] [address] Acanthocytes [Presence] in B lood by Light microscopyOrdered By: Damaso Charlton on 12-14-2024 Acanthocytes LM Ql (Bld) Slight [facility] Alanine aminotransferase [En zymatic activity/volume] in Serum or PlasmaOrdered By: Damaso Charlton on 12-14-2024 ALT [Catalytic activity/Vol] 4 U/L Low 7-52 [facility] Comment on above: Performed By: #### C MP, SCAN CBC ####[address] Albumin [Mass/volume] in Ser um or Plasma by Bromocresol green (BCG) dye binding methoOrdered By: Damaso Charlton on 12-14-2024 Albumin BCG dye [Mass/Vol] 4.5 g/dL 3.5-5.7 [facility] Alkaline phosphatase [Enzyma tic activity/volume] in Serum or PlasmaOrdered By: Damaso Charlton on 12-14-2024 ALP [Catalytic activity/Vol] 148 U/L High 34-104 [facility] Comment on above: Performed By: #### C MP, SCAN CBC ####[address] Appearance of UrineOrdered B y: Damaso Charlton on 12-14-2024 Appearance (U) Clear Clear [facility] Comment on above: Order Comment: Name Collection Type:: Clean-Voided Midstream Performed By: #### U A ####[address] Aspartate aminotransferase [ Enzymatic activity/volume] in Serum or PlasmaOrdered By: Damaso Charlton on 12-14-2024 AST [Catalytic activity/Vol] 13 U/L 13-39 [facility] Comment on above: Performed By: #### C MP, SCAN CBC ####[place] [address] [place] Basophils [#/volume] in Bloo d by Automated countOrdered By: Damaso Charlton on 12-14-2024 Basophils (Bld) [#/Vol] 0.1 10*3/uL 0.0-0.2 [facility] Comment on above: Performed By: #### C MP, SCAN CBC ####[place] [address] Basophils/100 leukocytes in Blood by Automated countOrdered By: Damaso Charlton on 12-14-2024 Basophils/100 WBC (Bld) 0.9 % . [facility] Comment on above: Performed By: #### C MP, SCAN CBC ####[place] [address] Bilirubin Test strip Ql (U)O rdered By: Damaso Charlton on 12-14-2024 Bilirubin Ql (U) Negative Negative [facility] Bilirubin.total [Mass/volume ] in Serum or PlasmaOrdered By: Damaso Charlton on 12-14-2024 Bilirubin [Mass/Vol] 0.5 mg/dL 0.3-1.0 [facility] Comment on above: Performed By: #### C MP, SCAN CBC ####[address] cervical spine wo conon 0 12-14-2024 CT cervical spine wo con Normal [facility] Calcium [Mass/volume] in Ser um or PlasmaOrdered By: Damaso Charlton on 12-14-2024 Calcium [Mass/Vol] 11.1 mg/dL High 8.6-10.3 [facility] Comment on above: Performed By: #### C MP, SCAN CBC ####[address] Capillary blood glucose rossy urement by glucometer (mass/volume)Ordered By: Damaso Charlton on 12-14-2024 Glucose [Mass/Vol] 84 mg/dL [facility] Comment on above: Random Glucose Refer ence Range is dependent on time and content of last meal. Glucose of more than 200 mg/dL in a nonstressed, ambulatory subject supports the diagnosis of Diabetes Mellitus. Result Comment: [place] om Glucose Reference Range is dependent on time and content of last meal. Glucose of more than 200 mg/dL in a nonstressed, ambulatory subject supports the diagnosis of Diabetes Mellitus.PERFORMED BY:[place] [address] [place], [place] [phone] MEDICAL LUÍS PIERSON M.D. Performed By: #### G NIDHI ####Point of Care testing, Carbon dioxide, total [Moles /volume] in Serum or PlasmaOrdered By: Damaso Charlton on 12-14-2024 CO2 [Moles/Vol] 25.5 mmol/L 21.0-31.0 [facility] Comment on above: Performed By: #### C MP, SCAN CBC ####[address] [address] [place] Chloride [Moles/volume] in S sonya or PlasmaOrdered By: Damaso Charlton on 12-14-2024 Chloride [Moles/Vol] 106 mmol/L 98-107 [facility] Comment on above: Performed By: #### C MP, SCAN CBC ####[address] [address] [facility] Color of Urine by AutoOrdere d By: Damaso Charlton on 12-14-2024 Color (U) Colorless Yellow [facility] Comment on above: Order Comment: Name Collection Type:: Clean-Voided Midstream Performed By: #### U A ####[address] [address] [facility] Comprehensive Metabolic Pane rm 12-14-2024 Albumin [Mass/Vol] 4.5 g/dL Normal 3.5-5.7 [facility] Comment on above: Performed By: #### C MP, SCAN CBC ####[address] [address] [facility] Creatinine Clr Calc Pharmacy 23.34 Normal [facility] Comment on above: Result Comment: PERF ORMED BY:[place] [address] [place], [place] [phone] LAUREANO PIERSON M.D. Performed By: #### C MP, SCAN CBC ####[address] [address] [place] GFR/1.73 sq M.predicted MDRD (S/P/Bld) [Vol rate/Area] 39.179 mL/min/{1.73_m2} Normal [facility] Comment on above: Performed By: #### C MP, SCAN CBC ####[place] [address] Creatinine [Mass/volume] in Serum or PlasmaOrdered By: Damaso Charlton on 12-14-2024 Creatinine [Mass/Vol] 1.38 mg/dL High 0.60-1.20 [facility] Comment on above: Performed By: #### C MP, SCAN CBC ####[place] [address] ECG 12 lead ECGon 12-14-2024 ECG 12 lead ECG Normal [facility] Eosinophils [#/volume] in Bl ood by Automated countOrdered By: Damaso Charlton on 12-14-2024 Eosinophils (Bld) [#/Vol] 0.2 10*3/uL 0.0-0.45 [facility] Comment on above: Performed By: #### C MP, SCAN CBC ####[address] Eosinophils/100 leukocytes i n Blood by Automated countOrdered By: Damaso Charlton on 12-14-2024 Eosinophils/100 WBC (Bld) 2.3 % . [facility] Comment on above: Performed By: #### C MP, SCAN CBC ####[address] Erythrocyte distribution wid th [Ratio] by Automated countOrdered By: Damaso Charlton on 12-14-2024 Erythrocyte distribution width (RBC) [Ratio] 14.4 % 11.9-15.3 [facility] Comment on above: Performed By: #### C MP, SCAN CBC ####[address] Erythrocyte morphology findi ng [Identifier] in BloodOrdered By: Damaso Charlton on 12-14-2024 RBC morphology finding Nom (Bld) N/A [facility] Erythrocytes [#/volume] in B lood by Automated countOrdered By: Damaso Charlton on 12-14-2024 RBC (Bld) [#/Vol] 4.11 10*6/uL 3.60-5.00 [facility] Comment on above: Performed By: #### C MP, SCAN CBC ####[facility] [address] [place] [address] [facility] Glucose [Mass/volume] in Ser um or PlasmaOrdered By: Damaso Charlton on 12-14-2024 Glucose [Mass/Vol] 95 mg/dL 70-100 [facility] Comment on above: ADA recommended refe rence rangeRandom Glucose Reference Range is dependent on time and content of last meal. Glucose of more than 200 mg/dL in a nonstressed, ambulatory subject supports the diagnosis of Diabetes Mellitus. Result Comment: [place] om Glucose Reference Range is dependent on time and content of last meal. Glucose of more than 200 mg/dL in a nonstressed, ambulatory subject supports the diagnosis of Diabetes Mellitus. ADA recommended reference range Performed By: #### C MP, SCAN CBC ####[facility] [id number] [place] [address] [facility] Glucose [Mass/volume] in Uri ne by Test stripOrdered By: Damaso Charlton on 12-14-2024 Glucose Test strip (U) [Mass/Vol] Normal mg/dL Normal [facility] Hematocrit [Volume Fraction] of Blood by Automated countOrdered By: Damaso Charlton on 12-14-2024 Hematocrit (Bld) [Volume fraction] 39.0 % 34.0-46.4 [facility] Comment on above: Performed By: #### C MP, SCAN CBC ####[facility] Tle[address] [place] [address] [facility] Hemoglobin Test strip Ql (U) Ordered By: Damaso Charlton on 12-14-2024 Hemoglobin Ql (U) Negative Negative [facility] Hemoglobin [Mass/volume] in BloodOrdered By: Damaso Charlton on 12-14-2024 Hemoglobin (Bld) [Mass/Vol] 12.7 g/dL 11.8-15.4 [facility] Comment on above: Performed By: #### C MP, SCAN CBC ####[address] [address] [facility] Ketones [Presence] in Urine by Test stripOrdered By: Damaso Charlton on 12-14-2024 Ketones Ql (U) Negative Negative [facility] Comment on above: Order Comment: Name Collection Type:: Clean-Voided Midstream Performed By: #### U A ####[place] [id number] [facility] Leukocyte esterase [Presence ] in Urine by Test stripOrdered By: Damaso Charlton on 12-14-2024 Leukocyte esterase Test strip Ql (U) Negative Negative [facility] Comment on above: Order Comment: Name Collection Type:: Clean-Voided Midstream Performed By: #### U A ####[place] [id number] [facility] Leukocytes [#/volume] correc ej for nucleated erythrocytes in Blood by Automated counOrdered By: Damaso Charlton on 12-14-2024 WBC corrected for nucl RBC Auto (Bld) [#/Vol] 6.5 10*3/uL 3.8-11.6 [facility] Leukocytes [#/volume] in Blo od by Automated countOrdered By: Damaso Charlton on 12-14-2024 WBC (Bld) [#/Vol] 6.5 10*3/uL 3.8-11.6 [facility] Comment on above: Performed By: #### C MP, SCAN CBC ####[place] [id number] [place] Lymphocytes [#/volume] in Bl ood by Automated countOrdered By: Damaso Charlton on 12-14-2024 Lymphocytes (Bld) [#/Vol] 1.0 10*3/uL 1.00-4.8 [facility] Comment on above: Performed By: #### C MP, SCAN CBC ####[place] [id number] [place] Lymphocytes/100 leukocytes i n Blood by Automated countOrdered By: Damaso Charlton on 12-14-2024 Lymphocytes/100 WBC (Bld) 15.7 % . [facility] Comment on above: Performed By: #### C MP, SCAN CBC ####[address] MCH [Entitic mass] by Automa ej countOrdered By: Damaso Charlton on 12-14-2024 MCH (RBC) [Entitic mass] 31.0 pg 24.7-34.3 [facility] Comment on above: Performed By: #### C MP, SCAN CBC ####[address] MCHC Auto (RBC) [Mass/Vol]Or dered By: Damaso Charlton on 12-14-2024 MCHC (RBC) [Mass/Vol] 32.6 g/dL 32.0-35.0 [facility] MCV [Entitic volume] by Auto mated countOrdered By: Damaso Charlton on 12-14-2024 MCV (RBC) [Entitic vol] 94.9 fL 80-100 [facility] Comment on above: Performed By: #### C MP, SCAN CBC ####[address] Monocyte distribution width [Entitic volume] in Blood by AutomatedOrdered By: Damaso Charlton on 12-14-2024 Monocyte distribution width Auto (Bld) [Entitic vol] 17.59 % 0.00-20.00 [facility] Monocytes [#/volume] in Bloo d by Automated countOrdered By: Damaso Charlton on 12-14-2024 Monocytes (Bld) [#/Vol] 0.7 10*3/uL 0.0-0.8 [facility] Comment on above: Performed By: #### C MP, SCAN CBC ####[address] Monocytes/100 leukocytes in Blood by Automated countOrdered By: Damaso Charlton on 12-14-2024 Monocytes/100 WBC (Bld) 9.9 % . [facility] Comment on above: Performed By: #### C MP, SCAN CBC ####[address] [address] [place] Neutrophils [#/volume] in Bl ood by Automated countOrdered By: Damaso Charlton on 12-14-2024 Neutrophils (Bld) [#/Vol] 4.7 10*3/uL 1.8-7.7 [facility] Comment on above: Performed By: #### C MP, SCAN CBC ####[facility] [id number] [address] Neutrophils/100 leukocytes i n Blood by Automated countOrdered By: Damaso Charlton on 12-14-2024 Neutrophils/100 WBC (Bld) 71.2 % . [facility] Comment on above: Performed By: #### C MP, SCAN CBC ####[facility] [id number] [address] Nitrite Test strip Ql (U)Ord ered By: Damaso Charlton on 12-14-2024 Nitrite Ql (U) Negative Negative [facility] No Panel InformationOrdered By: Damaso Charlton on 12-14-2024 Estimated GFR (CKD-EPI) 39.179 mL/Min [facility] Creatinine Clearance (Chem 23.34 [facility] Nucleated erythrocytes [Pres ence] in Blood by Automated countOrdered By: Damaso Charlton on 12-14-2024 Nucleated RBC Auto Ql (Bld) 0.2 /100{WBC} 0-0.5 [facility] Platelet adequacy [Presence] in Blood by Light microscopyOrdered By: Damaso Charlton on 12-14-2024 Platelets LM Ql (Bld) Normal Normal Fir [facility] Platelet mean volume [Entiti c volume] in Blood by Automated countOrdered By: Damaso Charlton on 12-14-2024 Platelet mean volume (Bld) [Entitic vol] 9.8 fL 6.3-10.7 [facility] Comment on above: Performed By: #### C MP, SCAN CBC ####[facility] [id number] Platelet morphology finding [Identifier] in BloodOrdered By: Damaso Charlton on 12-14-2024 Platelet morphology finding Nom (Bld) Normal Normal [facility] Platelets [#/volume] in Bloo d by Automated countOrdered By: Damaso Charlton on 12-14-2024 Platelets (Bld) [#/Vol] 303 10*3/uL 150-450 [facility] Comment on above: Performed By: #### C MP, SCAN CBC ####[address] Potassium [Moles/volume] in Serum or PlasmaOrdered By: Damaso Charlton on 12-14-2024 Potassium [Moles/Vol] 4.6 mmol/L 3.5-5.1 [facility] Comment on above: Performed By: #### C MP, SCAN CBC ####[address] Protein Test strip (U) [Mass /Vol]Ordered By: Damaso Charlton on 12-14-2024 Protein (U) [Mass/Vol] Negative Negative [facility] Protein [Mass/volume] in Ser um or PlasmaOrdered By: Damaso Charlton on 12-14-2024 Protein [Mass/Vol] 6.8 g/dL 6.4-8.9 [facility] Comment on above: Performed By: #### C MP, SCAN CBC ####[address] Scan and CBCon 12-14-2024 Acanthocytes Slight Normal [facility] Comment on above: Performed By: #### C MP, SCAN CBC ####[place] [id number] [facility] Mean Corpuscular HGB Conc 32.6 g/dL Normal 32.0-35.0 [facility] Comment on above: Performed By: #### C MP, SCAN CBC ####[place] [id number] [facility] Monocytes/100 WBC (Bld) 17.59 % Normal 0.00-20.00 [facility] Comment on above: Performed By: #### C MP, SCAN CBC ####[place] [id number] [facility] NRBC% 0.2 /100{WBC} Normal 0-0.5 [facility] Comment on above: Performed By: #### C MP, SCAN CBC ####[place] [id number] [place] [id number] [facility] Platelet Estimate Normal Normal Normal [facility] Comment on above: Performed By: #### C MP, SCAN CBC ####[place] [address] [place] [id number] [facility] Platelet Morphology Normal Normal Normal [facility] Comment on above: Result Comment: PERF ORMED BY:[address] [place], [place] [id number] MEDICAL DIRECTORSHANON PIERSON M.D. Performed By: #### C MP, SCAN CBC ####[address] White Blood Count 6.5 [CFU]/mL Normal 3.8-11.6 [facility] Comment on above: Performed By: #### C MP, SCAN CBC ####[address] Serum globulin measurement b y calculation (mass/volume)Ordered By: Damaso Charlton on 12-14-2024 Globulin (S) [Mass/Vol] 2.3 g/dL [facility] Comment on above: Performed By: #### C MP, SCAN CBC ####[address] Serum or plasma albumin/glob ulin mass ratioOrdered By: Damaso Charlton on 12-14-2024 Albumin/Globulin [Mass ratio] 2.0 {ratio} [facility] Comment on above: Performed By: #### C MP, SCAN CBC ####[address] Serum or plasma anion gap de terminationOrdered By: Damaso Charlton on 12-14-2024 Anion gap [Moles/Vol] 12.1 mmol/L 6.0-15.0 [facility] Comment on above: Performed By: #### C MP, SCAN CBC ####[place] [id number] [facility] Sodium [Moles/volume] in Ser um or PlasmaOrdered By: Damaso Charlton on 12-14-2024 Sodium [Moles/Vol] 139 mmol/L 136-145 [facility] Comment on above: Performed By: #### C MP, SCAN CBC ####[address] [address] [facility] Specific gravity Test strip (U) [Rel density]Ordered By: Damaso Charlton on 12-14-2024 Specific gravity (U) [Rel density] 1.010 1.001-1.03 0 [facility] Urea nitrogen [Mass/volume] in Serum or PlasmaOrdered By: Damaso Charlton on 12-14-2024 Urea nitrogen [Mass/Vol] 23 mg/dL 01-02 [facility] Comment on above: Performed By: #### C MP, SCAN CBC ####[place] [id number] [facility] Urinalysison 12-14-2024 Bilirubin,Urine Negative Normal Negative [facility] Comment on above: Order Comment: Name Collection Type:: Clean-Voided Midstream Performed By: #### U A ####[place] [id number] [facility] Glucose Ql (U) Normal Normal Normal [facility] Comment on above: Order Comment: Name Collection Type:: Clean-Voided Midstream Performed By: #### U A ####[place] [id number] [facility] Nitrite,Urine Negative Normal Negative [facility] Comment on above: Order Comment: Name Collection Type:: Clean-Voided Midstream Performed By: #### U A ####[address] [address] [facility] Occult Blood,Urine Negative Normal Negative [facility] Comment on above: Order Comment: Name Collection Type:: Clean-Voided Midstream Result Comment: PERF ORMED BY:[address] [place], [place] [phone] MEDICAL LUÍS PIERSON M.D. Performed By: #### U A ####[place] [address] [place] [id number] [facility] Protein,Urine Negative Normal Negative [facility] Comment on above: Order Comment: Name Collection Type:: Clean-Voided Midstream Performed By: #### U A ####[place] [address] [place] [address] [facility] Specificy [place],Urine 1.010 Normal 1.00 1-1.03 0 [facility] Comment on above: Order Comment: Name Collection Type:: Clean-Voided Midstream Performed By: #### U A ####[address] [address] [facility] Urobilinogen,Urine Normal Normal Normal [facility] Comment on above: Order Comment: Name Collection Type:: Clean-Voided Midstream Performed By: #### U A ####[address] Urobilinogen Test strip (U) [Mass/Vol]Ordered By: Damaso Charlton on 12-14-2024 Urobilinogen (U) [Mass/Vol] Normal mg/dL Normal [facility] X-ray reportOrdered By: Jared Henson on 12-14-2024 Study report [facility] [place] [address] XRay Report Signed Patient: Judith Land MR#: [id number] : 1945 Acct:[id number] Age/Sex: 79 / F ADM Date: 5 Loc: ER Room: Type: [facility] ER Attending Dr: Copies to: Damaso Charlton DO~ Ordering Provider: Damaso Charlton DO Date of Service: 12/14/24 XR/XR chest 2V*: Altered Mental Status Plain film chest 2 view HISTORY: Confusion. UTI. COMPARISON: 10/28/2024 FINDINGS: SUPPORT DEVICES: None POSTSURGICAL CHANGES: None HEART: Within normal limits PULMONARY FAIZA: Within normal limits MEDIASTINUM: Unremarkable LUNGS AND PLEURA: No acute lung process, pleural effusion or pneumothorax identified. Minor interstitial changes BONY STRUCTURES: Intact ADDITIONAL FINDINGS None XR/XR chest 2V* IMPRESSION: No acute process. Impression dictated by: Andrew Henson M.D. 12/14/2024 9:47 AM Dictation Location: [place] [address] Transcribed By: JOSELO 12/14/24946 Dictated By: Andrew Henson DO 12/14/24946 Signed By: 12/14/2447 [facility] XR chest 2V*on 12-14-2024 XR chest 2V* Normal [facility] pH of Urine by Test stripOrd ered By: Damaso Charlton on 12-14-2024 pH (U) 7.0 [pH] 5.0-9.0 [facility] Comment on above: Order Comment: Name Collection Type:: Clean-Voided Midstream Performed By: #### U A ####[facility] [id number] [place] [id number] [facility] CBC (H/H, RBC, INDICES, WBC, PLT)on 12-11-2024 Erythrocyte distribution width (RBC) [Ratio] 13.6 % Normal 11.0-15.0 [facility] Comment on above: Performed By: #### 1 023, 1759 #### [facility] [address] [place] [address] Helpdesk Specialist: Stefani Whyte Hematocrit (Bld) [Volume fraction] 39.5 % Normal 35.0-45.0 [facility] Comment on above: Performed By: #### 1 023, 1759 #### [facility] [address] [place] [address] Helpdesk Specialist: Stefani Wyhte Hemoglobin (Bld) [Mass/Vol] 12.9 g/dL Normal 11.7-15.5 [facility] Comment on above: Performed By: #### 1 023, 1759 #### [facility] [address] [place] [address] Helpdesk Specialist: Stefani Whyte MCH (RBC) [Entitic mass] 30.6 pg Normal 27.0-33.0 [facility] Comment on above: Performed By: #### 1 023, 1759 #### [facility] [address] [place] [address] Helpdesk Specialist: Stefani Whyte MCHC (RBC) [Mass/Vol] 32.7 g/dL Normal 32.0-36.[address] [facility] Comment on above: Result Comment: For adults, a slight decrease in the calculated MCHC value (in the range of 30 to 32 g/dL) is most likely not clinically significant; however, it should be interpreted with caution in correlation with other red cell parameters and the patient's clinical condition. Performed By: #### 1 230, 1758 #### [facility] [address] Helpdesk Specialist: Stefani Whyte MCV (RBC) [Entitic vol] 93.8 fL Normal 80.0-100.0 [facility] Comment on above: Performed By: #### 1 230, 1758 #### [facility] [address] [place] [address] Helpdesk Specialist: Stefani Whyte Platelet mean volume (Bld) [Entitic vol] 11.6 fL Normal 7.5-12.5 [facility] Comment on above: Performed By: #### 1 230, 175 #### [facility] [address] [place] [address] Helpdesk Specialist: Stefani Whyte Platelets (Bld) [#/Vol] 341 10*3/uL Normal 140-400 [facility] Comment on above: Performed By: #### 1 230, 175 #### [facility] [address] [place] [address] Helpdesk Specialist: Stefani Whyte RBC (Bld) [#/Vol] 4.21 10*6/uL Normal 3.80-5.10 [facility] Comment on above: Performed By: #### 1 230, 175 #### [facility] [address] [place] [address] Helpdesk Specialist: Stefani Whyte WBC (Bld) [#/Vol] 6.6 10*3/uL Normal 3.8-10.8 [facility] Comment on above: Performed By: #### 1 0231, 1759 #### [facility] [address] [place] [address] Helpdesk Specialist: Stefani Whyte COMPREHENSIVE METABOLIC PANE Rm 12-11-2024 Albumin [Mass/Vol] 4.2 g/dL Normal 3.6-5.1 [facility] Comment on above: Performed By: #### 1 230, 175 #### [facility] [address] [place] [address] Helpdesk Specialist: Stefani Whyte Albumin/Globulin [Mass ratio] 2.0 {ratio} Normal 1.0-2.5 [facility] Comment on above: Performed By: #### 1 230, 175 #### [facility] [address] Helpdesk Specialist: Stefani Whyte ALP [Catalytic activity/Vol] 149 U/L Normal 37-153 [facility] Comment on above: Performed By: #### 1 230, 175 #### [facility] [address] [place], [place] [id number] Helpdesk Specialist: Stefani Whyte ALT [Catalytic activity/Vol] 5 U/L Low 6-29 [facility] Comment on above: Performed By: #### 1 230, 175 #### [facility]-[address] Helpdesk Specialist: Stefani Whyte AST [Catalytic activity/Vol] 12 U/L Normal 10-35 [facility] Comment on above: Performed By: #### 1 023, 175 #### [facility] [address] [place], [place] [id number] Helpdesk Specialist: Stefani Whyte Bilirubin [Mass/Vol] 0.4 mg/dL Normal 0.2-1.2 [facility] Comment on above: Performed By: #### 1 230, 175 #### [facility]-[address] Helpdesk Specialist: Stefani Whyte Calcium [Mass/Vol] 10.8 mg/dL High 8.6-10.4 [facility] Comment on above: Performed By: #### 1 230, 175 #### [facility] [address] [place] [address] Helpdesk Specialist: Stefani Gates Flati Chloride [Moles/Vol] 106 mmol/L Normal 98-110 [facility] Comment on above: Performed By: #### 1 230, 175 #### [facility] [address] [place] [address] Helpdesk Specialist: Stefani Gates Flati CO2 [Moles/Vol] 24 mmol/L Normal 20-32 [facility] Comment on above: Performed By: #### 1 230, 175 #### [facility] [place] [address] Helpdesk Specialist: Stefani Gates Flati Creatinine [Mass/Vol] 1.34 mg/dL High 0.60-1.[address] [facility] Comment on above: Performed By: #### 1 230, 175 #### [facility] [address] [place] [address] Helpdesk Specialist: Stefani Aguilerai GFR/1.73 sq M.predicted among non-blacks MDRD (S/P/Bld) [Vol rate/Area] 41 mL/min/{1.73_m2} Low > OR = 60 [facility] Comment on above: Performed By: #### 1 230, 175 #### [facility] [address] [place] [address] Helpdesk Specialist: Stefani Gates Flati Globulin (S) [Mass/Vol] 2.1 g/dL Normal 1.9-3.7 [facility] Comment on above: Performed By: #### 1 230, 175 #### [facility] [address] [place] [address] Helpdesk Specialist: Stefani Gates Flati Glucose [Mass/Vol] 85 mg/dL Normal 65-99 [facility] Comment on above: Result Comment: Fasting reference interval Performed By: #### 1 230, 175 #### [facility] [address] [place], [place] [id number] Helpdesk Specialist: Stefani Aguilerai Potassium [Moles/Vol] 4.9 mmol/L Normal 3.5-5.[address] [facility] [address] [facility] Comment on above: Performed By: #### 1 0231, 1759 #### [facility] [address] [place], [place] [id number] Helpdesk Specialist: Stefani Gates Flati Protein [Mass/Vol] 6.3 g/dL Normal 6.1-8.1 [facility] Comment on above: Performed By: #### 1 0231, 1759 #### [facility] [address] [place], [place] [id number] Helpdesk Specialist: Stefani Gates Flati Sodium [Moles/Vol] 139 mmol/L Normal 135-146 [facility] Comment on above: Performed By: #### 1 0231, 1759 #### [facility] [address] [place], [place] [id number] Helpdesk Specialist: Stefani Gates Flati Urea nitrogen [Mass/Vol] 24 mg/dL Normal 7-25 [facility] Comment on above: Performed By: #### 1 0231, 1759 #### [facility] [address] [place], [place] [id number] Helpdesk Specialist: Stefani Gates Flati Urea nitrogen/Creatinine [Mass ratio] 18 mg/mg Normal 6-22 [facility] Comment on above: Performed By: #### 1 0231, 1759 #### [facility] [address] [place], [place] [id number] Helpdesk Specialist: Stefani Gates Flati Acanthocytes [Presence] in B lood by Light microscopyOrdered By: Trish Christensen on 11-02-2024 Acanthocytes LM Ql (Bld) Moderate [facility] Anisocytosis [Presence] in B lood by Light microscopyOrdered By: Trish Christensen on 11-02-2024 Anisocytosis Ql (Bld) Slight [facility] Comment on above: Performed By: #### B MP, DIFF CBC ####[facility] [id number] [place] [address] [facility] Basic Metabolic Panelon 05-2 5-2025 Creatinine Clr Calc Pharmacy 39.98 Normal [facility] Comment on above: Result Comment: PERF ORMED BY:[address] [place], [place] [phone] MEDICAL DIRECTORSHANON PIERSON M.D. Performed By: #### B MP, DIFF CBC ####[place] [id number] [place] [id number] [facility] GFR/1.73 sq M.predicted MDRD (S/P/Bld) [Vol rate/Area] mL/min/{1.73_m2} Normal [facility] Comment on above: Performed By: #### B MP, DIFF CBC ####[place] [address] [place] [id number] [facility] Basophils Auto (Bld) [#/Vol] Ordered By: Trish Christensen on 11-02-2024 Basophils (Bld) [#/Vol] N/A [facility] Basophils/100 WBC Auto (Bld) Ordered By: Trish Christensen on 11-02-2024 Basophils/100 WBC (Bld) N/A [facility] Calcium [Mass/volume] in Ser um or PlasmaOrdered By: Trish Christensen on 11-02-2024 Calcium [Mass/Vol] 10.4 mg/dL High 8.6-10.3 [facility] Comment on above: Performed By: #### B MP, DIFF CBC ####[place] [id number] [facility] Carbon dioxide, total [Moles /volume] in Serum or PlasmaOrdered By: Trish Christensen on 11-02-2024 CO2 [Moles/Vol] 29.6 mmol/L 21.0-31.0 [facility] Comment on above: Performed By: #### B MP, DIFF CBC ####[place] [id number] [facility] Chloride [Moles/volume] in S sonya or PlasmaOrdered By: Trish Christensen on 11-02-2024 Chloride [Moles/Vol] 110 mmol/L High 98-107 [facility] Comment on above: Performed By: #### B MP, DIFF CBC ####[address] Creatinine [Mass/volume] in Serum or PlasmaOrdered By: Trish Christensen on 11-02-2024 Creatinine [Mass/Vol] 0.91 mg/dL 0.60-1.20 [facility] Comment on above: Performed By: #### B MP, DIFF CBC ####[address] Diff and CBCon 11-02-2024 Acanthocytes Moderate Normal [facility] Comment on above: Performed By: #### B MP, DIFF CBC ####[address] Giant Platelet Tally 2 /100{WBC} Normal [facility] Comment on above: Performed By: #### B MP, DIFF CBC ####[address] Large Platelets Moderate Normal [facility] Comment on above: Result Comment: PERF ORMED BY:[address] [place], [place] [phone] MEDICAL LUÍS PIERSON M.D. Performed By: #### B MP, DIFF CBC ####[place] [id number] [facility] Mean Corpuscular HGB Conc 33.2 g/dL Normal 32.0-35.0 [facility] Comment on above: Performed By: #### B MP, DIFF CBC ####[place] [id number] [facility] Myelocytes 2 % High 0-0 [facility] Comment on above: Performed By: #### B MP, DIFF CBC ####[place] [id number] [facility] Platelet Estimate Normal Normal Normal [facility] Comment on above: Performed By: #### B MP, DIFF CBC ####[place] [address] [place] Eosinophils Auto (Bld) [#/Vo l]Ordered By: Trish Christensen on 11-02-2024 Eosinophils (Bld) [#/Vol] N/A [facility] Eosinophils/100 WBC Auto (Bl d)Ordered By: Trish Christensen on 11-02-2024 Eosinophils/100 WBC (Bld) N/A [facility] Eosinophils/100 leukocytes i n Blood by Manual countOrdered By: Trish Christensen on 11-02-2024 Eosinophils/100 WBC (Bld) 9 % High 1-3 [facility] Comment on above: Performed By: #### B MP, DIFF CBC ####[facility] [id number] [address] Erythrocyte distribution wid th [Ratio] by Automated countOrdered By: Trish Christensen on 11-02-2024 Erythrocyte distribution width (RBC) [Ratio] 14.8 % 11.9-15.3 [facility] Comment on above: Performed By: #### B MP, DIFF CBC ####[facility] [id number] [address] Erythrocyte morphology findi ng [Identifier] in BloodOrdered By: Trish Christensen on 11-02-2024 RBC morphology finding Nom (Bld) N/A [facility] Erythrocytes [#/volume] in B lood by Automated countOrdered By: Trish Christensen on 11-02-2024 RBC (Bld) [#/Vol] 3.70 10*6/uL 3.60-5.00 [facility] Comment on above: Performed By: #### B MP, DIFF CBC ####[facility] [id number] [address] Giant platelets/100 leukocyt es [Ratio] in Blood by Manual countOrdered By: Trish Christensen on 11-02-2024 Giant platelets/100 WBC Manual cnt (Bld) [Ratio] 2 /100{WBC} [facility] Glucose [Mass/volume] in Ser um or PlasmaOrdered By: Trish Christensen on 11-02-2024 Glucose [Mass/Vol] 101 mg/dL High 70-100 [facility] Comment on above: ADA recommended refe rence rangeRandom Glucose Reference Range is dependent on time and content of last meal. Glucose of more than 200 mg/dL in a nonstressed, ambulatory subject supports the diagnosis of Diabetes Mellitus. Result Comment: [place] om Glucose Reference Range is dependent on time and content of last meal. Glucose of more than 200 mg/dL in a nonstressed, ambulatory subject supports the diagnosis of Diabetes Mellitus. ADA recommended reference range Performed By: #### B MP, DIFF CBC ####[facility] [id number] [address] Hematocrit [Volume Fraction] of Blood by Automated countOrdered By: Trish Christensen on 11-02-2024 Hematocrit (Bld) [Volume fraction] 34.7 % 34.0-46.4 [facility] Comment on above: Performed By: #### B MP, DIFF CBC ####[place] [id number] Hemoglobin [Mass/volume] in BloodOrdered By: Trish Christensen on 11-02-2024 Hemoglobin (Bld) [Mass/Vol] 11.5 g/dL Low 11.8-15.4 [facility] Comment on above: Performed By: #### B MP, DIFF CBC ####[place] [id number] Leukocytes [#/volume] correc ej for nucleated erythrocytes in Blood by Automated counOrdered By: Trish Christensen on 11-02-2024 WBC corrected for nucl RBC Auto (Bld) [#/Vol] 10.5 10*3/uL 3.8-11.6 [facility] Leukocytes [#/volume] in Blo od by Automated countOrdered By: Trish Christensen on 11-02-2024 WBC (Bld) [#/Vol] 10.5 10*3/uL 3.8-11.6 [facility] Comment on above: Performed By: #### B MP, DIFF CBC ####[address] Lymphocytes Auto (Bld) [#/Vo l]Ordered By: Trish Christensen on 11-02-2024 Lymphocytes (Bld) [#/Vol] N/A [facility] Lymphocytes/100 WBC Auto (Bl d)Ordered By: Trish Christensen on 11-02-2024 Lymphocytes/100 WBC (Bld) N/A [facility] Lymphocytes/100 leukocytes i n Blood by Manual countOrdered By: Trish Christensen on 11-02-2024 Lymphocytes/100 WBC (Bld) 20 % 18-42 [facility] Comment on above: Performed By: #### B MP, DIFF CBC ####[facility] [id number] [place] [address] MCH [Entitic mass] by Automa ej countOrdered By: Trish Christensen on 11-02-2024 MCH (RBC) [Entitic mass] 31.1 pg 24.7-34.3 [facility] Comment on above: Performed By: #### B MP, DIFF CBC ####[facility] [id number] [place] [address] MCHC Auto (RBC) [Mass/Vol]Or dered By: Trish Christensen on 11-02-2024 MCHC (RBC) [Mass/Vol] 33.2 g/dL 32.0-35.0 [facility] MCV [Entitic volume] by Auto mated countOrdered By: Trish Christensen on 11-02-2024 MCV (RBC) [Entitic vol] 93.8 fL 80-100 [facility] Comment on above: Performed By: #### B MP, DIFF CBC ####[facility] [id number] [place] [address] Monocytes Auto (Bld) [#/Vol] Ordered By: Trish Christensen on 11-02-2024 Monocytes (Bld) [#/Vol] N/A [facility] Monocytes/100 WBC Auto (Bld) Ordered By: Trish Christensen on 11-02-2024 Monocytes/100 WBC (Bld) N/A [facility] Monocytes/100 leukocytes in Blood by Manual countOrdered By: Trish Christensen on 05-25-2025 Monocytes/100 WBC (Bld) 11 % 2-11 [facility] Comment on above: Performed By: #### B MP, DIFF CBC ####[facility] Rrd5081 [place] [address] [facility] Myelocytes/100 WBC Manual cn t (Bld)Ordered By: Trish Christensen on 11-02-2024 Myelocytes/100 WBC (Bld) 2 % High 0-0 [facility] Neutrophils Auto (Bld) [#/Vo l]Ordered By: Trish Christensen on 11-02-2024 Neutrophils (Bld) [#/Vol] N/A [facility] Neutrophils/100 WBC Auto (Bl d)Ordered By: Trish Christensen on 11-02-2024 Neutrophils/100 WBC (Bld) N/A [facility] No Panel InformationOrdered By: Trish Christensen on 11-02-2024 Estimated GFR (CKD-EPI) > 60.0 mL/Min [facility] Creatinine Clearance (Chem 39.98 [facility] Nucleated erythrocytes [Pres ence] in Blood by Automated countOrdered By: Trish Christensen on 11-02-2024 Nucleated RBC Auto Ql (Bld) N/A [facility] Platelet adequacy [Presence] in Blood by Light microscopyOrdered By: Trish Christensen on 11-02-2024 Platelets LM Ql (Bld) Normal Normal [facility] Platelet mean volume [Entiti c volume] in Blood by Automated countOrdered By: Trish Christensen on 11-02-2024 Platelet mean volume (Bld) [Entitic vol] 10.9 fL High 6.3-10.7 [facility] Comment on above: Result Comment: PERF ORMED BY:[address] [place], [place] [phone] MEDICAL DIRECTORSHANON PIERSON M.D. Performed By: #### B MP, DIFF CBC ####[facility] [id number] [place] [address] [facility] Platelet morphology finding [Identifier] in BloodOrdered By: Trish Christensen on 11-02-2024 Platelet morphology finding Nom (Bld) N/A [facility] Platelets Large [Presence] i n Blood by Light microscopyOrdered By: Trish Christensen on 11-02-2024 Platelets Large LM Ql (Bld) Moderate [facility] Platelets [#/volume] in Bloo d by Automated countOrdered By: Trish Christensen on 11-02-2024 Platelets (Bld) [#/Vol] 324 10*3/uL 150-450 [facility] Comment on above: Performed By: #### B MP, DIFF CBC ####[facility] [id number] [place] [address] Potassium [Moles/volume] in Serum or PlasmaOrdered By: Trish Christensen on 11-02-2024 Potassium [Moles/Vol] 3.7 mmol/L 3.5-5.1 [facility] Comment on above: Performed By: #### B MP, DIFF CBC ####[facility] [address] [place] [address] [place] Segmented neutrophils/100 le ukocytes in Blood by Manual countOrdered By: Trish Christensen on 11-02-2024 Segmented neutrophils/100 WBC (Bld) 58 % 50-70 [facility] Comment on above: Performed By: #### B MP, DIFF CBC ####[facility] [address] [place] [address] Serum or plasma anion gap de terminationOrdered By: Trish Christensen on 11-02-2024 Anion gap [Moles/Vol] 9.1 mmol/L 6.0-15.0 [facility] Comment on above: Performed By: #### B MP, DIFF CBC ####[facility] [id number] [place], [place] [id number] [place] Sodium [Moles/volume] in Ser um or PlasmaOrdered By: Trish Christensen on 11-02-2024 Sodium [Moles/Vol] 145 mmol/L 136-145 [facility] Comment on above: Performed By: #### B MP, DIFF CBC ####[facility] [id number] [place], [place] [id number] [facility] Urea nitrogen [Mass/volume] in Serum or PlasmaOrdered By: Trish Johniesandra on 11-02-2024 Urea nitrogen [Mass/Vol] 16 mg/dL 01-02 [facility] Comment on above: Performed By: #### B MP, DIFF CBC ####[address] Alanine aminotransferase [En zymatic activity/volume] in Serum or PlasmaOrdered By: Trish Johniewalker on 10-31-2024 ALT [Catalytic activity/Vol] 13 U/L [facility] Comment on above: Performed By: #### C MP, CBC ####[address] Albumin [Mass/volume] in Ser um or Plasma by Bromocresol green (BCG) dye binding methoOrdered By: Danniebrien Johniesandra on 10-31-2024 Albumin BCG dye [Mass/Vol] 3.1 g/dL Low 3.5-5.7 [facility] Alkaline phosphatase [Enzyma tic activity/volume] in Serum or PlasmaOrdered By: Danniebrien Johniesandra on 10-31-2024 ALP [Catalytic activity/Vol] 111 U/L High 34-104 [facility] Comment on above: Performed By: #### C MP, CBC ####[address] Aspartate aminotransferase [ Enzymatic activity/volume] in Serum or PlasmaOrdered By: Trish Johniesandra on 10-31-2024 AST [Catalytic activity/Vol] 14 U/L 13-39 [facility] Comment on above: Performed By: #### C MP, CBC ####[address] Bilirubin.total [Mass/volume ] in Serum or PlasmaOrdered By: Trish Johniesandra on 10-31-2024 Bilirubin [Mass/Vol] 0.5 mg/dL 0.3-1.0 [facility] Comment on above: Performed By: #### C MP, CBC ####[address] Complete Blood Count Auto Di ffon 10-31-2024 Basophils (Bld) [#/Vol] 0.1 10*3/uL Normal 0.0-0.2 [facility] Comment on above: Result Comment: PERF ORMED BY:[address] [place], [place] [phone] MEDICAL DIRECTORANNE OLGUIN M.D. Performed By: #### C MP, CBC ####[address] Basophils/100 WBC (Bld) 0.4 % Normal . [facility] Comment on above: Performed By: #### C MP, CBC ####[address] Eosinophils (Bld) [#/Vol] 0.6 10*3/uL High 0.0-0.45 [facility] Comment on above: Performed By: #### C MP, CBC ####[address] Eosinophils/100 WBC (Bld) 4.4 % Normal . [facility] Comment on above: Performed By: #### C MP, CBC ####[address] Erythrocyte distribution width (RBC) [Ratio] 15.0 % Normal 11.9-15.3 [facility] Comment on above: Performed By: #### C MP, CBC ####[address] Hematocrit (Bld) [Volume fraction] 32.1 % Low 34.0-46.4 [facility] Comment on above: Performed By: #### C MP, CBC ####[address] Hemoglobin (Bld) [Mass/Vol] 10.8 g/dL Low 11.8-15.4 [facility] Comment on above: Performed By: #### C MP, CBC ####[address] Lymphocytes (Bld) [#/Vol] 1.5 10*3/uL Normal 1.00-4.8 [facility] Comment on above: Performed By: #### C MP, CBC ####[address] Lymphocytes/100 WBC (Bld) 10.4 % Normal . [facility] Comment on above: Performed By: #### C MP, CBC ####[address] MCH (RBC) [Entitic mass] 31.6 pg Normal 24.7-34.3 [facility] Comment on above: Performed By: #### C MP, CBC ####[address] MCV (RBC) [Entitic vol] 94.4 fL Normal 80-100 [facility] Comment on above: Performed By: #### C MP, CBC ####[address] Mean Corpuscular HGB Conc 33.5 g/dL Normal 32.0-35.0 [facility] Comment on above: Performed By: #### C MP, CBC ####[address] Monocytes (Bld) [#/Vol] 1.3 10*3/uL High 0.0-0.8 [facility] Comment on above: Performed By: #### C MP, CBC ####[address] Monocytes/100 WBC (Bld) 8.6 % Normal . [facility] Comment on above: Performed By: #### C MP, CBC ####[address] Neutrophils (Bld) [#/Vol] 11.2 10*3/uL High 1.8-7.7 [facility] Comment on above: Performed By: #### C MP, CBC ####[address] Neutrophils/100 WBC (Bld) 76.2 % Normal . [facility] Comment on above: Performed By: #### C MP, CBC ####[address] NRBC% 0.3 /100{WBC} Normal 0-0.5 [facility] Comment on above: Performed By: #### C MP, CBC ####[address] Platelet mean volume (Bld) [Entitic vol] 10.6 fL Normal 6.3-10.7 [facility] Comment on above: Performed By: #### C MP, CBC ####[address] Platelets (Bld) [#/Vol] 253 10*3/uL Normal 150-450 [facility] Comment on above: Performed By: #### C MP, CBC ####[address] RBC (Bld) [#/Vol] 3.40 10*6/uL Low 3.60-5.00 [facility] Comment on above: Performed By: #### C MP, CBC ####[address] WBC (Bld) [#/Vol] 14.6 10*3/uL High 3.8-11.6 [facility] Comment on above: Performed By: #### C MP, CBC ####[address] Comprehensive Metabolic Pane rm 10-31-2024 Albumin [Mass/Vol] 3.1 g/dL Low 3.5-5.7 [facility] Comment on above: Performed By: #### C MP, CBC ####[address] Anion gap [Moles/Vol] 10.1 mmol/L Normal 6.0-15.0 [facility] Comment on above: Performed By: #### C MP, CBC ####[address] Calcium [Mass/Vol] 9.4 mg/dL Normal 8.6-10.3 [facility] Comment on above: Performed By: #### C MP, CBC ####[address] Chloride [Moles/Vol] 109 mmol/L High 98-107 [facility] Comment on above: Performed By: #### C MP, CBC ####[address] CO2 [Moles/Vol] 28.5 mmol/L Normal 21.0-31.0 [facility] Comment on above: Performed By: #### C MP, CBC ####[address] Creatinine [Mass/Vol] 0.99 mg/dL Normal 0.60-1.20 [facility] Comment on above: Performed By: #### C MP, CBC ####[address] Creatinine Clr Calc Pharmacy 36.97 Normal [facility] Comment on above: Result Comment: PERF ORMED BY:[address] [place], [place] [phone] MEDICAL DIRECTORANNE OLGUIN M.D. Performed By: #### C MP, CBC ####[place] [id number] [facility] Estimated GFR 58.364 mL/Min Normal [facility] Comment on above: Performed By: #### C MP, CBC ####[place] [id number] [facility] Glucose [Mass/Vol] 92 mg/dL Normal 70-100 [facility] Comment on above: Result Comment: [place] om Glucose Reference Range is dependent on time and content of last meal. Glucose of more than 200 mg/dL in a nonstressed, ambulatory subject supports the diagnosis of Diabetes Mellitus. ADA recommended reference range Performed By: #### C MP, CBC ####[facility] [address] Potassium [Moles/Vol] 3.6 mmol/L Normal 3.5-5.1 [facility] Comment on above: Performed By: #### C MP, CBC ####[address] Sodium [Moles/Vol] 144 mmol/L Normal 136-145 [facility] Comment on above: Performed By: #### C MP, CBC ####[address] Urea nitrogen [Mass/Vol] 21 mg/dL Normal 7-25 [facility] Comment on above: Performed By: #### C MP, CBC ####[address] Protein [Mass/volume] in Ser um or PlasmaOrdered By: Trish Christensen on 10-31-2024 Protein [Mass/Vol] 5.0 g/dL Low 6.4-8.9 [facility] Comment on above: Performed By: #### C MP, CBC ####[address] Serum globulin measurement b y calculation (mass/volume)Ordered By: Trish Christensen on 10-31-2024 Globulin (S) [Mass/Vol] 1.9 g/dL [facility] Comment on above: Performed By: #### C MP, CBC ####[address] Serum or plasma albumin/glob ulin mass ratioOrdered By: Trish Christensen on 10-31-2024 Albumin/Globulin [Mass ratio] 1.6 {ratio} [facility] Comment on above: Performed By: #### C MP, CBC ####[address] Basic Metabolic Panelon 10-10 Anion gap [Moles/Vol] 9.8 mmol/L Normal 6.0-15.0 [facility] Comment on above: Performed By: #### B MP ####[place] [id number] [facility] Calcium [Mass/Vol] 10.3 mg/dL Normal 8.6-10.3 [facility] Comment on above: Performed By: #### B MP ####[place] [id number] [facility] Chloride [Moles/Vol] 107 mmol/L Normal 98-107 [facility] Comment on above: Performed By: #### B MP ####[place] [id number] [facility] CO2 [Moles/Vol] 29.8 mmol/L Normal 21.0-31.0 [facility] Comment on above: Performed By: #### B MP ####[address] Creatinine [Mass/Vol] 1.03 mg/dL Normal 0.60-1.20 [facility] Comment on above: Performed By: #### B MP ####[place] [id number] [facility] Creatinine Clr Calc Pharmacy 35.53 Normal [facility] Comment on above: Result Comment: PERF ORMED BY:[address] [place], [place] [phone] MEDICAL DIRECTORANNE OLGUIN M.D. Performed By: #### B MP ####[place] [id number] [facility] Estimated GFR 55.655 mL/Min Normal [facility] Comment on above: Performed By: #### B MP ####[place] [id number] [facility] Glucose [Mass/Vol] 113 mg/dL High 70-100 [facility] Comment on above: Result Comment: [place] Glucose Reference Range is dependent on time and content of last meal. Glucose of more than 200 mg/dL in a nonstressed, ambulatory subject supports the diagnosis of Diabetes Mellitus. ADA recommended reference range Performed By: #### B MP ####[place] [id number] [facility] Potassium [Moles/Vol] 3.6 mmol/L Normal 3.5-5.1 [facility] Comment on above: Performed By: #### B MP ####[place] [id number] [facility] Sodium [Moles/Vol] 143 mmol/L Normal 136-145 [facility] Comment on above: Performed By: #### B MP ####[address] Urea nitrogen [Mass/Vol] 21 mg/dL Normal 7-25 [facility] Comment on above: Performed By: #### B MP ####[address] Cabrera cells [Presence] in Blo od by Light microscopyOrdered By: Trish Christensen on 10-30-2024 Cabrera cells LM Ql (Bld) Slight [facility] Comprehensive Metabolic Pane rm 10-30-2024 Albumin [Mass/Vol] 3.2 g/dL Low 3.5-5.7 [facility] Comment on above: Performed By: #### C MP, SCAN CBC ####[address] Albumin/Globulin [Mass ratio] 1.5 {ratio} Normal [facility] Comment on above: Performed By: #### C MP, SCAN CBC ####[place] [id number] [facility] ALP [Catalytic activity/Vol] 106 U/L High 34-104 [facility] Comment on above: Performed By: #### C MP, SCAN CBC ####[place] [id number] [facility] ALT [Catalytic activity/Vol] 13 U/L Normal 7-52 [facility] Comment on above: Performed By: #### C MP, SCAN CBC ####[place] [id number] [facility] Anion gap [Moles/Vol] 7.6 mmol/L Normal 6.0-15.0 [facility] Comment on above: Performed By: #### C MP, SCAN CBC ####[address] [address] [facility] AST [Catalytic activity/Vol] 12 U/L Low 13-39 [facility] Comment on above: Performed By: #### C MP, SCAN CBC ####[facility] [place] [address] [facility] Bilirubin [Mass/Vol] 0.4 mg/dL Normal 0.3-1.0 [facility] Comment on above: Performed By: #### C MP, SCAN CBC ####[address] [address] [facility] Calcium [Mass/Vol] 9.9 mg/dL Normal 8.6-10.3 [facility] Comment on above: Performed By: #### C MP, SCAN CBC ####[address] [address] [facility] Chloride [Moles/Vol] 108 mmol/L High 98-107 [facility] Comment on above: Performed By: #### C MP, SCAN CBC ####[address] [address] [facility] CO2 [Moles/Vol] 32.1 mmol/L High 21.0-31.0 [facility] Comment on above: Performed By: #### C MP, SCAN CBC ####[address] [address] [facility] Creatinine [Mass/Vol] 1.03 mg/dL Normal 0.60-1.20 [facility] Comment on above: Performed By: #### C MP, SCAN CBC ####[address] [address] [facility] Creatinine Clr Calc Pharmacy 33.75 Normal [facility] Comment on above: Result Comment: PERF ORMED BY:[address] [place], [place] [phone] MEDICAL DIRECTORANNE OLGUIN M.D. Performed By: #### C MP, SCAN CBC ####[address] [address] [facility] Estimated GFR 55.655 mL/Min Normal [facility] Comment on above: Performed By: #### C MP, SCAN CBC ####[place] [address] [place] [id number] [facility] Globulin (S) [Mass/Vol] 2.1 g/dL Normal T [facility] Comment on above: Performed By: #### C MP, SCAN CBC ####[place] [id number] [place] [id number] [facility] Glucose [Mass/Vol] 114 mg/dL High 70-100 [facility] Comment on above: Result Comment: [place] Glucose Reference Range is dependent on time and content of last meal. Glucose of more than 200 mg/dL in a nonstressed, ambulatory subject supports the diagnosis of Diabetes Mellitus. ADA recommended reference range Performed By: #### C MP, SCAN CBC ####[place] [id number] Potassium [Moles/Vol] 3.7 mmol/L Normal 3.5-5.1 [facility] Comment on above: Performed By: #### C MP, SCAN CBC ####[place] [id number] [place] [id number] [facility] Protein [Mass/Vol] 5.3 g/dL Low 6.4-8.9 [facility] Comment on above: Performed By: #### C MP, SCAN CBC ####[place] [id number] [facility] Sodium [Moles/Vol] 144 mmol/L Normal 136-145 [facility] Comment on above: Performed By: #### C MP, SCAN CBC ####[place] [address] [place] [id number] [facility] Urea nitrogen [Mass/Vol] 21 mg/dL Normal 7-25 [facility] Comment on above: Performed By: #### C MP, SCAN CBC ####[place] [id number] [place] [id number] [facility] Ovalocytes [Presence] in Blo od by Light microscopyOrdered By: Trish Christensen on 10-30-2024 Ovalocytes LM Ql (Bld) Slight [facility] Poikilocytosis [Presence] in Blood by Light microscopyOrdered By: Trish Christensen on 10-30-2024 Poikilocytosis LM Ql (Bld) Slight [facility] Polychromasia [Presence] in Blood by Light microscopyOrdered By: Trish Christensen on 10-30-2024 Polychromasia LM Ql (Bld) Slight [facility] Scan and CBCon 10-30-2024 Basophils (Bld) [#/Vol] 0.1 10*3/uL Normal 0.0-0.2 [facility] Comment on above: Performed By: #### C MP, SCAN CBC ####[address] Basophils/100 WBC (Bld) 0.4 % Normal . [facility] Comment on above: Performed By: #### C MP, SCAN CBC ####[address] Crenated RBC Slight Normal [facility] Comment on above: Performed By: #### C MP, SCAN CBC ####[address] Eosinophils (Bld) [#/Vol] 0.8 10*3/uL High 0.0-0.45 [facility] Comment on above: Performed By: #### C MP, SCAN CBC ####[address] Eosinophils/100 WBC (Bld) 4.3 % Normal . [facility] Comment on above: Performed By: #### C MP, SCAN CBC ####[address] Erythrocyte distribution width (RBC) [Ratio] 15.2 % Normal 11.9-15.3 [facility] Comment on above: Performed By: #### C MP, SCAN CBC ####[address] Hematocrit (Bld) [Volume fraction] 34.5 % Normal 34.0-46.4 [facility] Comment on above: Performed By: #### C MP, SCAN CBC ####[address] [address] [facility] Hemoglobin (Bld) [Mass/Vol] 11.2 g/dL Low 11.8-15.4 [facility] Comment on above: Performed By: #### C MP, SCAN CBC ####[address] [address] [facility] Large Platelets Slight Normal [facility] Comment on above: Result Comment: PERF ORMED BY:[address] [place] [phone] MEDICAL DIRECTORANNE OLGUIN M.D. Performed By: #### C MP, SCAN CBC ####[address] Lymphocytes (Bld) [#/Vol] 1.6 10*3/uL Normal 1.00-4.8 [facility] Comment on above: Performed By: #### C MP, SCAN CBC ####[address] Lymphocytes/100 WBC (Bld) 8.5 % Normal . [facility] Comment on above: Performed By: #### C MP, SCAN CBC ####[place] [id number] [facility] MCH (RBC) [Entitic mass] 31.1 pg Normal 24.7-34.3 [facility] Comment on above: Performed By: #### C MP, SCAN CBC ####[place] [id number] [facility] MCV (RBC) [Entitic vol] 95.4 fL Normal 80-100 T [facility] Comment on above: Performed By: #### C MP, SCAN CBC ####[place] [id number] [facility] Mean Corpuscular HGB Conc 32.6 g/dL Normal 32.0-35.0 [facility] Comment on above: Performed By: #### C MP, SCAN CBC ####[address] [place] [address] [place] Monocytes (Bld) [#/Vol] 1.4 10*3/uL High 0.0-0.8 [facility] Comment on above: Performed By: #### C MP, SCAN CBC ####[address] Monocytes/100 WBC (Bld) 7.1 % Normal . T al [facility] Comment on above: Performed By: #### C MP, SCAN CBC ####[address] Neutrophils (Bld) [#/Vol] 15.2 10*3/uL High 1.8-7.7 [facility] Comment on above: Performed By: #### C MP, SCAN CBC ####[address] Neutrophils/100 WBC (Bld) 79.7 % Normal . [facility] Comment on above: Performed By: #### C MP, SCAN CBC ####[address] NRBC% 0.2 /100{WBC} Normal 0-0.5 [facility] Comment on above: Performed By: #### C MP, SCAN CBC ####[address] Ovalocytes Slight Normal [facility] Comment on above: Performed By: #### C MP, SCAN CBC ####[address] Platelet Estimate Normal Normal Normal [facility] Comment on above: Performed By: #### C MP, SCAN CBC ####[address] Platelet mean volume (Bld) [Entitic vol] 10.7 fL Normal 6.3-10.7 [facility] Comment on above: Performed By: #### C MP, SCAN CBC ####[address] Platelets (Bld) [#/Vol] 263 10*3/uL Normal 150-450 [facility] Comment on above: Performed By: #### C MP, SCAN CBC ####[address] Poikilocytosis Slight Normal [facility] Comment on above: Performed By: #### C MP, SCAN CBC ####[place] [id number] [facility] Polychromasia Slight Normal [facility] Comment on above: Performed By: #### C MP, SCAN CBC ####[place] [id number] [facility] RBC (Bld) [#/Vol] 3.61 10*6/uL Normal 3.60-5.00 [facility] Comment on above: Performed By: #### C MP, SCAN CBC ####[address] Schistocytes Slight Normal [facility] Comment on above: Performed By: #### C MP, SCAN CBC ####[place] [id number] [facility] Stomatocytes Slight Normal [facility] Comment on above: Performed By: #### C MP, SCAN CBC ####[place] [id number] [facility] WBC (Bld) [#/Vol] 19.1 10*3/uL High 3.8-11.6 [facility] Comment on above: Performed By: #### C MP, SCAN CBC ####[address] Schistocytes [Presence] in B lood by Light microscopyOrdered By: Trish Christensen on 10-30-2024 Schistocytes LM Ql (Bld) [facility] Stomatocytes [Presence] in B lood by Light microscopyOrdered By: Trish Christensen on 10-30-2024 Stomatocytes LM Ql (Bld) [facility] Ammonia [Moles/volume] in Pl asmaOrdered By: José Antonio Lerma on 10-29-2024 Ammonia (P) [Moles/Vol] 29 umol/L 11-35 F [facility] Comment on above: Result Comment: PERF ORMED BY:[facility] [place], [place] [id number] MEDICAL DIRECTORANNE OLGUIN M.D. Performed By: #### A MM ####[facility] [place] [address] [facility] Arterial Blood Gason 025 ABG Base Excess 5.4 mmol/L High -3.0-3.0 [facility] Comment on above: Performed By: #### A BG ####Point of Care testing, ABG Frac Inspired O2 Normal [facility] Comment on above: Performed By: #### A BG ####Point of Care testing, ABG Liter Flow 5L Normal [facility] Comment on above: Performed By: #### A BG ####Point of Care testing, ABG Oxygen Content 7.0 mmol/L Normal 6.6-9.7 [facility] Comment on above: Performed By: #### A BG ####Point of Care testing, ABG Oxygen Saturation 92.1 % Low 95.0-100.0 [facility] Comment on above: Performed By: #### A BG ####Point of Care testing, ABG PCO2 44.3 mm[Hg] Normal 35.0-45.0 [facility] Comment on above: Performed By: #### A BG ####Point of Care testing, ABG PH 7.45 Normal 7.35-7.45 [facility] Comment on above: Performed By: #### A BG ####Point of Care testing, ABG PO2 61.0 mm[Hg] Low 80.0-100.0 [facility] Comment on above: Performed By: #### A BG ####Point of Care testing, Oxygen Device Nasal Cannula Normal [facility] Comment on above: Performed By: #### A BG ####Point of Care testing, Respiratory Critical Normal [facility] Comment on above: Result Comment: Crit ical Value called on: 10/29/2024 at 12:14PERFORMED BY:[place] [address] [place], [place] [phone] MEDICAL DIRECTORANNE OLGUIN M.D. Performed By: #### A BG ####Point of Care testing, VBG Draw Site Right Radial Normal [facility] Comment on above: Performed By: #### A BG ####Point of Care testing, Arterial Blood GasOrdered By : Trish Christensen on 10-29-2024 CO2 [Moles/Vol] 31.4 mmol/L High 23.0-27.0 [facility] Comment on above: Performed By: #### A BG ####Point of Care testing, HCO3 (Bld) [Moles/Vol] 30.0 mmol/L High 23.0-29.0 [facility] Comment on above: Performed By: #### A BG ####Point of Care testing, Basic Metabolic Panelon 10-10 Anion gap [Moles/Vol] 8.3 mmol/L Normal 6.0-15.0 [facility] Comment on above: Performed By: #### B MP ####[place] [id number] [facility] Calcium [Mass/Vol] 10.2 mg/dL Normal 8.6-10.3 [facility] Comment on above: Performed By: #### B MP ####[address] [address] [facility] Chloride [Moles/Vol] 111 mmol/L High 98-107 [facility] Comment on above: Performed By: #### B MP ####[address] [address] [facility] CO2 [Moles/Vol] 31.6 mmol/L High 21.0-31.0 [facility] Comment on above: Performed By: #### B MP ####[place] [id number] [facility] Creatinine [Mass/Vol] 1.06 mg/dL Normal 0.60-1.20 [facility] Comment on above: Performed By: #### B MP ####[address] [address] [facility] Creatinine Clr Calc Pharmacy 32.80 Normal [facility] Comment on above: Result Comment: PERF ORMED BY:[address] [place], [place] [phone] MEDICAL DIRECTORANNE OLGUIN M.D. Performed By: #### B MP ####[address] [address] [facility] Estimated GFR 53.770 mL/Min Normal [facility] Comment on above: Performed By: #### B MP ####[address] [address] [facility] Glucose [Mass/Vol] 123 mg/dL High 70-100 [facility] Comment on above: Result Comment: [place] Glucose Reference Range is dependent on time and content of last meal. Glucose of more than 200 mg/dL in a nonstressed, ambulatory subject supports the diagnosis of Diabetes Mellitus. ADA recommended reference range Performed By: #### B MP ####[address] [address] [facility] Potassium [Moles/Vol] 3.9 mmol/L Normal 3.5-5.1 [facility] Comment on above: Performed By: #### B MP ####[address] [address] [facility] Sodium [Moles/Vol] 147 mmol/L High 136-145 [facility] Comment on above: Performed By: #### B MP ####[address] [address] [facility] Urea nitrogen [Mass/Vol] 23 mg/dL Normal 7-25 [facility] Comment on above: Performed By: #### B MP ####[address] [address] [facility] Anion gap [Moles/Vol] 8.6 mmol/L Normal 6.0-15.0 [facility] Comment on above: Performed By: #### B MP ####[address] [address] [facility] Calcium [Mass/Vol] 10.2 mg/dL Normal 8.6-10.3 [facility] Comment on above: Performed By: #### B MP ####[place] [id number] [facility] Chloride [Moles/Vol] 114 mmol/L High 98-107 [facility] Comment on above: Performed By: #### B MP ####[place] [id number] [facility] CO2 [Moles/Vol] 31.4 mmol/L High 21.0-31.0 [facility] Comment on above: Performed By: #### B MP ####[place] [id number] [facility] Creatinine [Mass/Vol] 1.02 mg/dL Normal 0.60-1.20 [facility] Comment on above: Performed By: #### B MP ####[place] [id number] [facility] Creatinine Clr Calc Pharmacy 34.09 Normal [facility] Comment on above: Result Comment: PERF ORMED BY:[address] [place], [place] [id number] MEDICAL TYESHA OLGUIN M.D. Performed By: #### B MP ####[place] [id number] [facility] Estimated GFR 56.310 mL/Min Normal [facility] Comment on above: Performed By: #### B MP ####[place] [id number] [facility] Glucose [Mass/Vol] 122 mg/dL High 70-100 [facility] Comment on above: Result Comment: [place] Glucose Reference Range is dependent on time and content of last meal. Glucose of more than 200 mg/dL in a nonstressed, ambulatory subject supports the diagnosis of Diabetes Mellitus. ADA recommended reference range Performed By: #### B MP ####[address] Potassium [Moles/Vol] 4.0 mmol/L Normal 3.5-5.1 [facility] Comment on above: Performed By: #### B MP ####[address] Sodium [Moles/Vol] 150 mmol/L High 136-145 [facility] Comment on above: Performed By: #### B MP ####[address] Urea nitrogen [Mass/Vol] 24 mg/dL Normal 7-25 [facility] Comment on above: Performed By: #### B MP ####[address] Anion gap [Moles/Vol] 7.8 mmol/L Normal 6.0-15.0 [facility] Comment on above: Performed By: #### H ANA CRISTINA LOPEZ, TSH3 ####[address] Calcium [Mass/Vol] 10.2 mg/dL Normal 8.6-10.3 [facility] Comment on above: Performed By: #### H ANA CRISTINA LOPEZ, TSH3 ####[address] Chloride [Moles/Vol] 114 mmol/L High 98-107 [facility] Comment on above: Performed By: #### H ANA CRISTINA LOPEZ, TSH3 ####[address] CO2 [Moles/Vol] 32.2 mmol/L High 21.0-31.0 [facility] Comment on above: Performed By: #### H ANA CRISTINA LOPEZ, TSH3 ####[address] Creatinine [Mass/Vol] 1.11 mg/dL Normal 0.60-1.20 [facility] Comment on above: Performed By: #### H ANAC RISTINA LOPEZ, TSH3 ####[address] Creatinine Clr Calc Pharmacy 31.32 Normal [facility] Comment on above: Performed By: #### H ANA CRISTINA LOPEZ, TSH3 ####[address] Estimated GFR 50.876 mL/Min Normal [facility] Comment on above: Performed By: #### H ANA CRISTINA LOPEZ, TSH3 ####[address] Glucose [Mass/Vol] 149 mg/dL High 70-100 [facility] Comment on above: Result Comment: [facility] Glucose Reference Range is dependent on time and content of last meal. Glucose of more than 200 mg/dL in a nonstressed, ambulatory subject supports the diagnosis of Diabetes Mellitus. ADA recommended reference range Performed By: #### H ANA CRISTINA LOPEZ, TSH3 ####[address] Potassium [Moles/Vol] 4.0 mmol/L Normal 3.5-5.1 [facility] Comment on above: Performed By: #### H ANA CRISTINA LOPEZ, TSH3 ####[address] Sodium [Moles/Vol] 150 mmol/L Significant change up 136-145 [facility] Comment on above: Performed By: #### H ANA CRISTINA LOPEZ, TSH3 ####[address] Urea nitrogen [Mass/Vol] 26 mg/dL High 7-25 [facility] Comment on above: Performed By: #### H ANA CRISTINA LOPEZ, TSH3 ####[address] Bilirubin.direct [Mass/volum e] in Serum or PlasmaOrdered By: José Antonio Lerma on 10-29-2024 Bilirubin.direct [Mass/Vol] 0.10 mg/dL 0.03-0.18 [facility] CT head/brain wo conon 10-29 CT head/brain wo con Normal [facility] Comprehensive Metabolic Pane rm 10-29-2024 Albumin [Mass/Vol] 3.6 g/dL Normal 3.5-5.7 [facility] Comment on above: Performed By: #### C MP, DIFF CBC ####[address] Albumin/Globulin [Mass ratio] 1.6 {ratio} Normal [facility] Comment on above: Performed By: #### C MP, DIFF CBC ####[address] ALP [Catalytic activity/Vol] 126 U/L High 34-104 [facility] Comment on above: Performed By: #### C MP, DIFF CBC ####[address] ALT [Catalytic activity/Vol] 15 U/L Normal 7-52 [facility] Comment on above: Performed By: #### C MP, DIFF CBC ####[address] Anion gap [Moles/Vol] 10.8 mmol/L Normal 6.0-15.0 [facility] Comment on above: Performed By: #### C MP, DIFF CBC ####[address] AST [Catalytic activity/Vol] 18 U/L Normal 13-39 [facility] Comment on above: Performed By: #### C MP, DIFF CBC ####[address] Bilirubin [Mass/Vol] 0.5 mg/dL Normal 0.3-1.0 [facility] Comment on above: Performed By: #### C MP, DIFF CBC ####[place] [id number] [facility] Calcium [Mass/Vol] 10.6 mg/dL High 8.6-10.3 [facility] Comment on above: Performed By: #### C MP, DIFF CBC ####[address] Chloride [Moles/Vol] 120 mmol/L High 98-107 [facility] Comment on above: Performed By: #### C MP, DIFF CBC ####[place] [id number] [facility] CO2 [Moles/Vol] 28.7 mmol/L Normal 21.0-31.0 [facility] Comment on above: Performed By: #### C MP, DIFF CBC ####[place] [id number] [facility] Creatinine [Mass/Vol] 1.29 mg/dL High 0.60-1.20 [facility] Comment on above: Performed By: #### C MP, DIFF CBC ####[place] [id number] [facility] Creatinine Clr Calc Pharmacy 29.50 Normal [facility] Comment on above: Result Comment: PERF ORMED BY:[address] [place], [place] [id number] MEDICAL DIRECTORANNE OLGUIN M.D. Performed By: #### C MP, DIFF CBC ####[place] [id number] [facility] Estimated GFR 42.482 mL/Min Normal [facility] Comment on above: Performed By: #### C MP, DIFF CBC ####[place] [id number] [facility] Globulin (S) [Mass/Vol] 2.3 g/dL Normal T [facility] Comment on above: Performed By: #### C MP, DIFF CBC ####[place] [id number] [facility] Glucose [Mass/Vol] 112 mg/dL High 70-100 [facility] Comment on above: Result Comment: [place] Glucose Reference Range is dependent on time and content of last meal. Glucose of more than 200 mg/dL in a nonstressed, ambulatory subject supports the diagnosis of Diabetes Mellitus. ADA recommended reference range Performed By: #### C MP, DIFF CBC ####[place] [id number] [facility] Potassium [Moles/Vol] 3.5 mmol/L Normal 3.5-5.1 [facility] Comment on above: Performed By: #### C MP, DIFF CBC ####[address] Protein [Mass/Vol] 5.9 g/dL Low 6.4-8.9 [facility] Comment on above: Performed By: #### C MP, DIFF CBC ####[address] Sodium [Moles/Vol] 156 mmol/L Off scale high 136-145 [facility] Comment on above: Result Comment: Crit ical Result Called to and read back by: NOT FIRST CRITICAL at: 10/29/2024 05:59:08 by:JACOB Performed By: #### C MP, DIFF CBC ####[address] Urea nitrogen [Mass/Vol] 33 mg/dL High 7-25 [facility] Comment on above: Performed By: #### C MP, DIFF CBC ####[address] Diff and CBCon 10-29-2024 Acanthocytes Slight Normal [facility] Comment on above: Performed By: #### C MP, DIFF CBC ####[address] Eosinophils/100 WBC (Bld) 1 % Normal 1-3 [facility] Comment on above: Performed By: #### C MP, DIFF CBC ####[place] [id number] [facility] Erythrocyte distribution width (RBC) [Ratio] 15.9 % High 11.9-15.3 [facility] Comment on above: Performed By: #### C MP, DIFF CBC ####[place] [id number] [facility] Giant Platelet Tally 9 /100{WBC} Normal [facility] Comment on above: Performed By: #### C MP, DIFF CBC ####[place] [address] Hematocrit (Bld) [Volume fraction] 38.5 % Normal 34.0-46.4 [facility] Comment on above: Performed By: #### C MP, DIFF CBC ####[address] Hemoglobin (Bld) [Mass/Vol] 12.7 g/dL Normal 11.8-15.4 [facility] Comment on above: Performed By: #### C MP, DIFF CBC ####[address] Large Platelets Slight Normal [facility] Comment on above: Result Comment: PERF ORMED BY:[address] [place], [place] [phone] MEDICAL DIRECTORANNE OLGUIN M.D. Performed By: #### C MP, DIFF CBC ####[address] Lymphocytes/100 WBC (Bld) 4 % Low 18-42 [facility] Comment on above: Performed By: #### C MP, DIFF CBC ####[address] MCH (RBC) [Entitic mass] 31.5 pg Normal 24.7-34.3 [facility] Comment on above: Performed By: #### C MP, DIFF CBC ####[address] MCV (RBC) [Entitic vol] 95.9 fL Normal 80-100 T [facility] Comment on above: Performed By: #### C MP, DIFF CBC ####[address] Mean Corpuscular HGB Conc 32.9 g/dL Normal 32.0-35.0 [facility] Comment on above: Performed By: #### C MP, DIFF CBC ####[address] Monocytes/100 WBC (Bld) 4 % Normal 2-11 T [facility] Comment on above: Performed By: #### C MP, DIFF CBC ####[address] Ovalocytes Slight Normal [facility] Comment on above: Performed By: #### C MP, DIFF CBC ####[place] [id number] [facility] Platelet Estimate Normal Normal Normal [facility] Comment on above: Performed By: #### C MP, DIFF CBC ####[address] Platelet mean volume (Bld) [Entitic vol] 10.1 fL Normal 6.3-10.7 [facility] Comment on above: Result Comment: PERF ORMED BY:[address] [place], [place] [phone] MEDICAL DIRECTORANNE OLGUIN M.D. Performed By: #### C MP, DIFF CBC ####[address] Platelets (Bld) [#/Vol] 280 10*3/uL Normal 150-450 [facility] Comment on above: Performed By: #### C MP, DIFF CBC ####[address] Poikilocytosis Slight Normal [facility] Comment on above: Performed By: #### C MP, DIFF CBC ####[address] Polychromasia Slight Normal [facility] Comment on above: Performed By: #### C MP, DIFF CBC ####[address] RBC (Bld) [#/Vol] 4.01 10*6/uL Normal 3.60-5.00 [facility] Comment on above: Performed By: #### C MP, DIFF CBC ####[address] Segmented neutrophils/100 WBC (Bld) 91 % High 50-70 [facility] Comment on above: Performed By: #### C MP, DIFF CBC ####[address] Spherocytes Slight Normal [facility] Comment on above: Performed By: #### C MP, DIFF CBC ####[address] WBC (Bld) [#/Vol] 20.9 10*3/uL High 3.8-11.6 [facility] Comment on above: Performed By: #### C MP, DIFF CBC ####[address] Hepatic Panelon 10-29-2024 Albumin [Mass/Vol] 3.2 g/dL Low 3.5-5.7 [facility] Comment on above: Performed By: #### H EPATIC, BMP, TSH3 ####[address] Albumin/Globulin [Mass ratio] 1.6 {ratio} Normal [facility] Comment on above: Performed By: #### H EPATIC, BMP, TSH3 ####[address] ALP [Catalytic activity/Vol] 104 U/L Normal 34-104 [facility] Comment on above: Performed By: #### H EPATIC, BMP, TSH3 ####[address] ALT [Catalytic activity/Vol] 14 U/L Normal 7-52 [facility] Comment on above: Performed By: #### H EPATIC, BMP, TSH3 ####[address] AST [Catalytic activity/Vol] 16 U/L Normal 13-39 [facility] Comment on above: Performed By: #### H EPATIC, BMP, TSH3 ####[address] Bilirubin [Mass/Vol] 0.4 mg/dL Normal 0.3-1.0 [facility] Comment on above: Performed By: #### H EPATIC, BMP, TSH3 ####[address] Bilirubin,Indirect 0.3 mg/dL Normal [facility] Comment on above: Performed By: #### H EPATIC, BMP, TSH3 ####[address] Bilirubin.indirect [Mass/Vol] 0.10 mg/dL Normal 0.03-0.18 [facility] Comment on above: Performed By: #### H EPATIC, BMP, TSH3 ####[address] Globulin (S) [Mass/Vol] 2.0 g/dL Normal T [facility] Comment on above: Performed By: #### H EPATIC, BMP, TSH3 ####[address] Protein [Mass/Vol] 5.2 g/dL Low 6.4-8.9 [facility] Comment on above: Performed By: #### H EPATIC, BMP, TSH3 ####[address] No Panel InformationOrdered By: Trish Christensen on 10-29-2024 Arterial Blood Base Excess 5.4 mmol/L High -3.0-3.0 [facility] Arterial Blood Oxygen Content 7.0 mmol/L 6.6-9.7 [facility] Arterial Blood Oxygen Saturation 92.1 % Low 95.0-100.0 [facility] Arterial Blood Partial Pressure CO2 44.3 mm[Hg] 35.0-45.0 [facility] Arterial Blood Partial Pressure O2 61.0 mm[Hg] Low 80.0-100.0 [facility] Arterial Blood pH 7.45 7.35-7.45 [facility] Blood Gas Critical Value See comment [facility] Comment on above: Critical Value mendez d on: 10/29/2024 at 12:14 Blood Gas Liter Flow 5l L/min [facility] Blood Gas Sample Site Right radial F [facility] FiO2 Na % [facility] Oxygen Delivery Device Nasal cannula [facility] Serum or plasma non-glucuron idated bilirubin measurement (mass/volume)Ordered By: José Antonio Lerma on 10-29-2024 Bilirubin.indirect [Mass/Vol] 0.3 mg/dL [facility] Spherocytes [Presence] in Bl ood by Light microscopyOrdered By: Trish Christensen on 10-29-2024 Spherocytes LM Ql (Bld) Slight F [facility] Thyrotropin [Units/volume] i n Serum or PlasmaOrdered By: José Antonio Lerma on 10-29-2024 TSH Qn 1.15 m[IU]/L 0.45-5.33 [facility] Comment on above: Result Comment: PERF ORMED BY:[place] [address] [place], [place] [phone] MEDICAL DIRECTORANNE OLGUIN M.D. Performed By: #### H EPATIC, BMP, TSH3 ####[address] [address] [facility] Troponin I High Sensitivityo n 10-29-2024 Troponin I High Sensitivity 63 Off scale high 0-15 [facility] Comment on above: Order Comment: Comme nt CAD Result Comment: Crit ical Result : Called to and read back by: ALENA WORKMAN at: 10/29/2024 05:36:07 by: The Troponin units of report have been changed to meet the Chest Pain Accreditation requirement, element EC5.M1l2. Troponin units are changed from pg/ml to ng/L. Also, the decimal is removed and results are in whole numbers.PERFORMED BY:[address] [place], [place] [phone] MEDICAL DIRECTORANNE OLGUIN M.D. Performed By: #### H S TROP ####[address] [address] [facility] Troponin I.cardiac [Mass/vol ume] in Serum or Plasma by Detection limit <= 0.01 ng/mLOrdered By: Trish Christensen on 10-29-2024 Troponin I.cardiac DL <= 0.01 ng/mL [Mass/Vol] 63 ng/L Critically high 0-15 [facility] Comment on above: Critical Result : Ca lled to and read back by: ALENA WORKMAN at: 10/29/2024 05:36:07 by:DHThe Troponin units of report have been changed to meet the Chest Pain Accreditation requirement, element EC5.M1l2. Troponin units are changed from pg/ml to ng/L. Also, the decimal is removed and results are in whole numbers. Appearance of UrineOrdered B y: Trish Christensen on 10-28-2024 Appearance (U) Clear Clear [facility] Comment on above: Order Comment: Name Collection Type:: Monroe Catheter Performed By: #### A DDONUAPLUS ####[facility] [address] [place] [address] [facility] Arterial Blood Gason 025 ABG Base Excess 2.5 mmol/L Normal -3.0-3.0 [facility] Comment on above: Performed By: #### A BG ####Point of Care testing, ABG Frac Inspired O2 100 % Normal [facility] Comment on above: Performed By: #### A BG ####Point of Care testing, ABG Liter Flow 15 Normal [facility] Comment on above: Performed By: #### A BG ####Point of Care testing, ABG Oxygen Content 7.7 mmol/L Normal 6.6-9.7 [facility] Comment on above: Performed By: #### A BG ####Point of Care testing, ABG Oxygen Saturation 95.2 % Normal 95.0-100.0 [facility] Comment on above: Performed By: #### A BG ####Point of Care testing, ABG PCO2 47.8 mm[Hg] High 35.0-45.0 [facility] Comment on above: Performed By: #### A BG ####Point of Care testing, ABG PH 7.39 Normal 7.35-7.45 [facility] Comment on above: Performed By: #### A BG ####Point of Care testing, ABG PO2 79.7 mm[Hg] Low 80.0-100.0 [facility] Comment on above: Performed By: #### A BG ####Point of Care testing, CO2 [Moles/Vol] 29.6 mmol/L High 23.0-27.0 [facility] Comment on above: Performed By: #### A BG ####Point of Care testing, HCO3 (Bld) [Moles/Vol] 28.2 mmol/L Normal 23.0-29.0 [facility] Comment on above: Performed By: #### A BG ####Point of Care testing, Oxygen Device Nasal Cannula Normal [facility] Comment on above: Performed By: #### A BG ####Point of Care testing, Respiratory Critical Normal [facility] Comment on above: Result Comment: Crit ical Value called on: 10/28/2024 at 16:05PERFORMED BY:[facility] [place], [place] [phone] MEDICAL DIRECTORANNE OLGUIN M.D. Performed By: #### A BG ####Point of Care testing, VBG Draw Site Right Radial Normal [facility] Comment on above: Performed By: #### A BG ####Point of Care testing, Bacteria [Presence] in Urine by AutomatedOrdered By: Trish Christensen on 10-28-2024 Bacteria Auto Ql (U) Rare [HPF] None Seen [facility] Band form neutrophils/100 le ukocytes in Blood by Manual countOrdered By: Trish Christensen on 10-28-2024 Band form neutrophils/100 WBC (Bld) 2 % 0-5 [facility] Comment on above: Performed By: #### C UBLD, LACTIC, DIFF CBC ####[facility] [address] [place] [address] [facility] Basic Metabolic Panelon 10-10 Anion gap [Moles/Vol] 12.0 mmol/L Normal 6.0-15.0 [facility] e [facility] Comment on above: Performed By: #### B MP ####[address] [address] [facility] Calcium [Mass/Vol] 10.3 mg/dL Normal 8.6-10.3 [facility] Comment on above: Performed By: #### B MP ####[address] [address] [facility] Chloride [Moles/Vol] 122 mmol/L High 98-107 [facility] Comment on above: Performed By: #### B MP ####[place] [id number] [facility] CO2 [Moles/Vol] 27.9 mmol/L Normal 21.0-31.0 [facility] Comment on above: Performed By: #### B MP ####[place] [id number] [facility] Creatinine [Mass/Vol] 1.27 mg/dL High 0.60-1.20 [facility] Comment on above: Performed By: #### B MP ####[place] [id number] [facility] Creatinine Clr Calc Pharmacy 29.97 Normal [facility] Comment on above: Result Comment: PERF ORMED BY:[address] [place], [place] [phone] MEDICAL DIRECTORANNE OLGUIN M.D. Performed By: #### B MP ####[address] [address] [facility] Estimated GFR 43.286 mL/Min Normal [facility] Comment on above: Performed By: #### B MP ####[address] [address] [facility] Glucose [Mass/Vol] 114 mg/dL High 70-100 [facility] Comment on above: Result Comment: [place] Glucose Reference Range is dependent on time and content of last meal. Glucose of more than 200 mg/dL in a nonstressed, ambulatory subject supports the diagnosis of Diabetes Mellitus. ADA recommended reference range Performed By: #### B MP ####[address] [place] [address] [facility] Potassium [Moles/Vol] 3.9 mmol/L Normal 3.5-5.1 [facility] Comment on above: Performed By: #### B MP ####[address] Sodium [Moles/Vol] 158 mmol/L Off scale high 136-145 [facility] Comment on above: Result Comment: Crit ical Result Called to and read back by: NOT FIRST CRITICAL at: 10/28/2024 22:33:04 by:LFM Performed By: #### B MP ####[address] Urea nitrogen [Mass/Vol] 39 mg/dL High 7-25 [facility] Comment on above: Performed By: #### B MP ####[address] Bilirubin Test strip Ql (U)O rdered By: Trish Christensen on 10-28-2024 Bilirubin Ql (U) Negative Negative [facility] BioFire Not Detectedon 10-28 BioFire Not Detected Not detected Normal Not Detecte [facility] Comment on above: Result Comment: This is a duplicate RP2.1 COVID (PCR) result to be used for statistical tracking purpose only.PERFORMED BY:[address]ardoRatnaMU[place], [place] [phone] MEDICAL TYESHA OLGUIN M.D. Performed By: #### B IOFIRECOVNOTDE, RESP PANEL UPP. ####[place] [id number] [facility] Blood Cultureon 10-28-2024 Bacteria identified Cx Nom (Bld) NO GROWTH 5 DAYS PERFORMED BY: [facility] [address] [place] [address] PATHOLOGIST [employer] MA[employer]GER SHANON PIERSON M.D. Normal [facility] Comment on above: Performed By: #### C UBLD, LACTIC, DIFF CBC ####[address] [place] [address] [facility] Bacteria identified Cx Nom (Bld) NO GROWTH 5 DAYS PERFORMED BY: [facility] [address] [place] [address] PATHOLOGIST [employer] MANAGER SHANON PIERSON M.D. Normal [facility] Comment on above: Performed By: #### C UBLD, LACTIC, DIFF CBC ####[facility] [address] [place] [id number] [facility] COVID-19 Detected/Not Detect edOrdered By: Trish Christensen on 10-28-2024 SARS-CoV-2 (COVID-19) RNA KINZA+non-probe Ql (Nph) Not detected Not Detecte [facility] Comment on above: This is a duplicate RP2.1 COVID (PCR) result to be used for statistical tracking purpose only. Capillary blood glucose rossy urement by glucometer (mass/volume)Ordered By: Trish Christensen on 10-28-2024 Glucose [Mass/Vol] 122 mg/dL [facility] Comment on above: Random Glucose Refer ence Range is dependent on time and content of last meal. Glucose of more than 200 mg/dL in a nonstressed, ambulatory subject supports the diagnosis of Diabetes Mellitus. Result Comment: [place] Glucose Reference Range is dependent on time and content of last meal. Glucose of more than 200 mg/dL in a nonstressed, ambulatory subject supports the diagnosis of Diabetes Mellitus.PERFORMED BY:[facility] ROACHRatnaMUIR, [place] [phone] MEDICAL DIRECTORANNE OLGUIN M.D. Performed By: #### G LULS ####Point of Care testing, Cholesterol [Mass/volume] in Serum or PlasmaOrdered By: Trish Christensen on 10-28-2024 Cholesterol [Mass/Vol] 149 mg/dL 140-200 [facility] Comment on above: Chol less than 200 m g/dl low riskChol 201-239 mg/dl borderline riskChol 240 mg/dl and greater high risk Result Comment: Chol less than 200 mg/dl low risk Chol 201-239 mg/dl borderline risk Chol 240 mg/dl and greater high risk Performed By: #### M G, TSH3, CMP, HS TROP, LIPID ####[facility] [address] [place] [address] [place] Cholesterol in HDL [Mass/vol ume] in Serum or PlasmaOrdered By: Trish Christensen on 10-28-2024 Cholesterol in HDL [Mass/Vol] 72 mg/dL 23-92 [facility] Comment on above: HDL CHOL ATP-III CLA SSIFICATION Cardiovascular RiskHDL > or equal to 60 mg/dL LOWHDL < 40 mg/dL HIGH Result Comment: HDL CHOL ATP-III CLASSIFICATION Cardiovascular Risk HDL > or equal to 60 mg/dL LOW HDL < 40 mg/dL HIGH Performed By: #### M G, TSH3, CMP, HS TROP, LIPID ####[facility] [address] [place] [address] [place] Cholesterol in LDL Calc [Mas s/Vol]Ordered By: Trish Christensen on 10-28-2024 Cholesterol in LDL [Mass/Vol] 60 mg/dL 0-100 [facility] Comment on above: LDL ATP III CLASSIFI CATIONLDL less than 100 mg/dL OptimalLDL 100-129 mg/dL Near or above optimalLDL 130-159 mg/dL Borderline highLDL 160-189 mg/dL HighLDL greater than 189 mg/dL Very high Cholesterol in VLDL Calc [Ma ss/Vol]Ordered By: Trish Christensen on 10-28-2024 Cholesterol in VLDL [Mass/Vol] 17 mg/dL [facility] Clostridioides difficile tox in B tcdB gene [Presence] in Stool by KINZA with probe deteOrdered By: Trish Christensen on 10-28-2024 C. difficile toxin B tcdB gene KINZA+probe Ql (Stl) Negative Negative [facility] Comment on above: Testing performed by RT-PCR Clostridium Difficileon 10-10 Clostridium Difficile Negative Normal Negative [facility] Comment on above: Order Comment: > or = to 3 loose/watery stools in the last 24 HRS? Y Is patient on promotility agents or tube feeding? N Result Comment: Test ing performed by RT-PCRPERFORMED BY:[place] [address] [place], [place] [phone] MEDICAL DIRECTORANNE OLGUIN M.D. Performed By: #### C DT ####[place] [id number] [facility] Color of Urine by AutoOrdere d By: Trish Christensen on 10-28-2024 Color (U) Light-yellow Yellow [facility] Comment on above: Order Comment: Name Collection Type:: Monroe Catheter Performed By: #### A DDONUAPLUS ####[address] [address] [facility] Comprehensive Metabolic Pane rm 10-28-2024 Albumin [Mass/Vol] 3.9 g/dL Normal 3.5-5.7 [facility] Comment on above: Performed By: #### M G, TSH3, CMP, HS TROP, LIPID ####[address] [address] [facility] Albumin/Globulin [Mass ratio] 1.7 {ratio} Normal [facility] Comment on above: Performed By: #### M G, TSH3, CMP, HS TROP, LIPID ####[address] [address] [facility] ALP [Catalytic activity/Vol] 135 U/L High 34-104 [facility] Comment on above: Performed By: #### M G, TSH3, CMP, HS TROP, LIPID ####[address] [address] [facility] ALT [Catalytic activity/Vol] 13 U/L Normal 7-52 [facility] Comment on above: Performed By: #### M G, TSH3, CMP, HS TROP, LIPID ####[address] [address] [facility] Anion gap [Moles/Vol] 10.2 mmol/L Normal 6.0-15.0 [facility] e [facility] Comment on above: Performed By: #### M G, TSH3, CMP, HS TROP, LIPID ####[address] [address] [facility] AST [Catalytic activity/Vol] 21 U/L Normal 13-39 [facility] Comment on above: Performed By: #### M G, TSH3, CMP, HS TROP, LIPID ####[address] Bilirubin [Mass/Vol] 0.6 mg/dL Normal 0.3-1.0 [facility] Comment on above: Performed By: #### M G, TSH3, CMP, HS TROP, LIPID ####[address] Calcium [Mass/Vol] 10.9 mg/dL High 8.6-10.3 [facility] Comment on above: Performed By: #### M G, TSH3, CMP, HS TROP, LIPID ####[address] Chloride [Moles/Vol] 119 mmol/L High 98-107 [facility] Comment on above: Performed By: #### M G, TSH3, CMP, HS TROP, LIPID ####[address] CO2 [Moles/Vol] 31.5 mmol/L High 21.0-31.0 [facility] Comment on above: Performed By: #### M G, TSH3, CMP, HS TROP, LIPID ####[address] Creatinine [Mass/Vol] 1.50 mg/dL High 0.60-1.20 [facility] Comment on above: Performed By: #### M G, TSH3, CMP, HS TROP, LIPID ####[address] Creatinine Clr Calc Pharmacy 25.37 Normal [facility] Comment on above: Performed By: #### M G, TSH3, CMP, HS TROP, LIPID ####[address] Estimated GFR 35.448 mL/Min Normal [facility] Comment on above: Performed By: #### M G, TSH3, CMP, HS TROP, LIPID ####[address] [place] [address] [facility] Globulin (S) [Mass/Vol] 2.3 g/dL Normal T [facility] Comment on above: Performed By: #### M G, TSH3, CMP, HS TROP, LIPID ####[place] [id number] [facility] Glucose [Mass/Vol] 106 mg/dL High 70-100 [facility] Comment on above: Result Comment: [place] Glucose Reference Range is dependent on time and content of last meal. Glucose of more than 200 mg/dL in a nonstressed, ambulatory subject supports the diagnosis of Diabetes Mellitus. ADA recommended reference range Performed By: #### M G, TSH3, CMP, HS TROP, LIPID ####[address] Potassium [Moles/Vol] 3.7 mmol/L Normal 3.5-5.1 [facility] Comment on above: Performed By: #### M G, TSH3, CMP, HS TROP, LIPID ####[address] Protein [Mass/Vol] 6.2 g/dL Low 6.4-8.9 [facility] Comment on above: Performed By: #### M G, TSH3, CMP, HS TROP, LIPID ####[place] [id number] [facility] Sodium [Moles/Vol] 157 mmol/L Off scale high 136-145 [facility] Comment on above: Result Comment: Resu lts called at 1632 on 10/28/24 --- 10/28/24 2143 --- NA previously reported as: 157 *H mmol/L Performed By: #### M G, TSH3, CMP, HS TROP, LIPID ####[place] [id number] [facility] Urea nitrogen [Mass/Vol] 46 mg/dL High 7-25 [facility] Comment on above: Performed By: #### M G, TSH3, CMP, HS TROP, LIPID ####[place] [id number] [place] Diff and CBCon 10-28-2024 Erythrocyte distribution width (RBC) [Ratio] 15.6 % High 11.9-15.3 [facility] Comment on above: Performed By: #### C UBLD, LACTIC, DIFF CBC ####[address] Giant Platelet Tally 2 /100{WBC} Normal [facility] Comment on above: Performed By: #### C UBLD, LACTIC, DIFF CBC ####[address] Hematocrit (Bld) [Volume fraction] 40.6 % Normal 34.0-46.4 [facility] Comment on above: Performed By: #### C UBLD, LACTIC, DIFF CBC ####[address] Hemoglobin (Bld) [Mass/Vol] 13.2 g/dL Normal 11.8-15.4 [facility] Comment on above: Performed By: #### C UBLD, LACTIC, DIFF CBC ####[address] Lymphocytes/100 WBC (Bld) 7 % Low 18-42 [facility] Comment on above: Performed By: #### C UBLD, LACTIC, DIFF CBC ####[address] MCH (RBC) [Entitic mass] 31.2 pg Normal 24.7-34.3 [facility] Comment on above: Performed By: #### C UBLD, LACTIC, DIFF CBC ####[address] MCV (RBC) [Entitic vol] 95.8 fL Normal 80-100 T [facility] Comment on above: Performed By: #### C UBLD, LACTIC, DIFF CBC ####[address] Mean Corpuscular HGB Conc 32.5 g/dL Normal 32.0-35.0 [facility] Comment on above: Performed By: #### C UBLD, LACTIC, DIFF CBC ####[address] Monocytes/100 WBC (Bld) 10 % Normal 2-11 T [facility] Comment on above: Performed By: #### C UBLD, LACTIC, DIFF CBC ####[address] Ovalocytes Slight Normal [facility] Comment on above: Performed By: #### C UBLD, LACTIC, DIFF CBC ####[address] Platelet Estimate Normal Normal Normal [facility] Comment on above: Performed By: #### C UBLD, LACTIC, DIFF CBC ####[address] Platelet mean volume (Bld) [Entitic vol] 10.2 fL Normal 6.3-10.7 [facility] Comment on above: Performed By: #### C UBLD, LACTIC, DIFF CBC ####[address] Platelet Morphology Normal Normal Normal [facility] Comment on above: Result Comment: PERF ORMED BY:[address] [place], [place] [phone] MEDICAL DIRECTORANNE OLGUIN M.D. Performed By: #### C UBLD, LACTIC, DIFF CBC ####[address] Platelets (Bld) [#/Vol] 335 10*3/uL Normal 150-450 [facility] Comment on above: Performed By: #### C UBLD, LACTIC, DIFF CBC ####[address] RBC (Bld) [#/Vol] 4.24 10*6/uL Normal 3.60-5.00 [facility] Comment on above: Performed By: #### C UBLD, LACTIC, DIFF CBC ####[address] Schistocytes Slight Normal [facility] Comment on above: Performed By: #### C UBLD, LACTIC, DIFF CBC ####[place] [id number] [facility] Segmented neutrophils/100 WBC (Bld) 81 % High 50-70 [facility] Comment on above: Performed By: #### C UBLD, LACTIC, DIFF CBC ####[address] WBC (Bld) [#/Vol] 16.8 10*3/uL High 3.8-11.6 [facility] Comment on above: Performed By: #### C UBLD, LACTIC, DIFF CBC ####[address] Dipstick and Microscopicon 0 10-28-2024 Bacteria,Urine Rare Normal None Seen [facility] Comment on above: Order Comment: Name Collection Type:: Monroe Catheter Performed By: #### A DDONUAPLUS ####[address] Bilirubin,Urine Negative Normal Negative [facility] Comment on above: Order Comment: Name Collection Type:: Monroe Catheter Performed By: #### A DDONUAPLUS ####[address] Glucose Ql (U) Normal Normal Normal [facility] Comment on above: Order Comment: Name Collection Type:: Monroe Catheter Performed By: #### A DDONUAPLUS ####[place] [id number] [facility] Hyaline Casts,Urine None Normal 0-8 [facility] Comment on above: Order Comment: Name Collection Type:: Monroe Catheter Performed By: #### A DDONUAPLUS ####[place] [id number] [facility] Mucus,Urine Rare Normal [facility] Comment on above: Order Comment: Name Collection Type:: [place] Catheter Result Comment: PERF ORMED BY:[address] [place], [place] [phone] MEDICAL DIRECTORANNE ONTIVEROSROBERTO Stacy Performed By: #### A DDONUAPLUS ####[place] [id number] [facility] Nitrite,Urine Negative Normal Negative [facility] Comment on above: Order Comment: Name Collection Type:: Monroe Catheter Performed By: #### A DDONUAPLUS ####[place] [id number] [facility] Occult Blood,Urine 1+ High Negative [facility] Comment on above: Order Comment: Name Collection Type:: Monroe Catheter Result Comment: PERF ORMED BY:[address] [place], [place] [phone] MEDICAL DIRECTORANNE ONTIVEROSATRIUM HEALTH STANLYANA Stacy Performed By: #### A DDONUAPLUS ####[place] [id number] [facility] Protein,Urine Trace High Negative [facility] Comment on above: Order Comment: Name Collection Type:: Monroe Catheter Performed By: #### A DDONUAPLUS ####[place] [id number] [facility] RBC,Urine 5-9 High 0-4 [facility] Comment on above: Order Comment: Name Collection Type:: Monroe Catheter Performed By: #### A DDONUAPLUS ####[place] [id number] [facility] Specificy [place],Urine 1.037 High 1.00 1-1.03 0 [facility] Comment on above: Order Comment: Name Collection Type:: Monroe Catheter Performed By: #### A DDONUAPLUS ####[place] [id number] [facility] Squamous Epithelial Cell,Urine 1-2 Normal 0-2 [facility] Comment on above: Order Comment: Name Collection Type:: Monroe Catheter Performed By: #### A DDONUAPLUS ####[place] [id number] [facility] Urobilinogen,Urine Normal Normal Normal [facility] Comment on above: Order Comment: Name Collection Type:: Monroe Catheter Performed By: #### A DDONUAPLUS ####[place] [id number] WBC,Urine 10-19 High 0-4 [facility] Comment on above: Order Comment: Name Collection Type:: Monroe Catheter Performed By: #### A DDONUAPLUS ####[address] ECG 12 lead ECGon 10-28-2024 ECG 12 lead ECG Normal [facility] ECG 12 lead ECG Normal [facility] ECG 12 lead ECG Normal [facility] Epithelial cells.squamous [# /area] in Urine sediment by Automated countOrdered By: Trish Christensen on 10-28-2024 Epithelial cells.squamous Auto (Urine sed) [#/Area] 1-2 [HPF] 0-2 [facility] Erythrocytes [#/area] in Uri ne sediment by Automated countOrdered By: Trish Christensen on 10-28-2024 RBC Auto (Urine sed) [#/Area] 5-9 [HPF] High 0-4 [facility] Glucose [Mass/volume] in Uri ne by Test stripOrdered By: Trish Christensen on 10-28-2024 Glucose Test strip (U) [Mass/Vol] Normal mg/dL Normal [facility] Hemoglobin Test strip Ql (U) Ordered By: Trish Christensen on 10-28-2024 Hemoglobin Ql (U) 1+ High Negative [facility] Hyaline casts [#/area] in Ur ine sediment by Automated countOrdered By: Trish Christensen on 10-28-2024 Hyaline casts Auto (Urine sed) [#/Area] None [LPF] 0-8 [facility] Ketones [Presence] in Urine by Test stripOrdered By: Trish Christensen on 10-28-2024 Ketones Ql (U) Negative Negative [facility] Comment on above: Order Comment: Name Collection Type:: Monroe Catheter Performed By: #### A DDONUAPLUS ####[address] [place] [address] [facility] Laboratory - Microbiology an d Antimicrobial susceptibilityOrdered By: Trish Christensen on 10-28-2024 Bacteria identified Cx Nom (Bld) NO GROWTH 5 DAYS [facility] Bacteria identified Cx Nom (Bld) NO GROWTH 5 DAYS [facility] Lactate [Moles/volume] in Se rum or PlasmaOrdered By: Trish Christensen on 10-28-2024 Lactate [Moles/Vol] 1.6 mmol/L 0.5-1.9 [facility] Comment on above: Lactic Acid referenc e range has been updated to 0.5 1.9 mmol/L and the critical range of 2.0 or greater. Result Comment: Lact ic Acid reference range has been updated to 0.5 ? 1.9 mmol/L and the critical range of 2.0 or greater.PERFORMED BY:[address] [place], [place] [phone] MEDICAL DIRECTORANNE OLGUIN M.D. Performed By: #### C UBLD, LACTIC, DIFF CBC ####[place] [id number] [facility] Leukocyte esterase [Presence ] in Urine by Test stripOrdered By: Trish Christensen on 10-28-2024 Leukocyte esterase Test strip Ql (U) Negative Negative [facility] Comment on above: Order Comment: Name Collection Type:: Monroe Catheter Performed By: #### A DDONUAPLUS ####[address] Leukocytes [#/area] in Urine sediment by Automated countOrdered By: Trish Christensen on 10-28-2024 WBC Auto (Urine sed) [#/Area] 10-19 [HPF] High 0-4 [facility] Lipid Panelon 10-28-2024 LDL Cholesterol,Calculated 60 mg/dL Normal 0-100 [facility] Comment on above: Result Comment: LDL ATP III CLASSIFICATION LDL less than 100 mg/dL Optimal LDL 100-129 mg/dL Near or above optimal LDL 130-159 mg/dL Borderline high LDL 160-189 mg/dL High LDL greater than 189 mg/dL Very high Performed By: #### M G, TSH3, CMP, HS TROP, LIPID ####[place] [id number] Triglyceride w/Reflex 85 mg/dL Normal 0-149 [facility] Comment on above: Result Comment: TRIG ATP III CLASSIFICATION TRIG less than 150 mg/dL Normal TRIG 150-199 mg/dL Borderline high TRIG 200-500 mg/dL High TRIG greater than 500 mg/dL Very high Standard traceable to the Center for Disease Conrtrol and Prevention (CDC) test method. Performed By: #### M G, TSH3, CMP, HS TROP, LIPID ####[place] [id number] VLDL CHOLESTEROL 17 mg/dL Normal [facility] Comment on above: Performed By: #### M G, TSH3, CMP, HS TROP, LIPID ####[place] [id number] Magnesium [Mass/volume] in S sonya or PlasmaOrdered By: Trish Christensen on 10-28-2024 Magnesium [Mass/Vol] 2.8 mg/dL High 1.9-2.7 [facility] Comment on above: Performed By: #### M G, TSH3, CMP, HS TROP, LIPID ####[place] [id number] Mucus [Presence] in Urine by AutomatedOrdered By: Trish Christensen on 10-28-2024 Mucus Auto Ql (U) Rare [LPF] [facility] Nitrite Test strip Ql (U)Ord ered By: Trish Christensen on 10-28-2024 Nitrite Ql (U) Negative Negative [facility] Protein Test strip (U) [Mass /Vol]Ordered By: Trish Christensen on 10-28-2024 Protein (U) [Mass/Vol] Trace mg/dL High Negative [facility] Respiratory (Upper) Panel, P CRon 10-28-2024 Respiratory (Upper) Panel, PCR Normal [facility] Comment on above: Performed By: #### B IOFIRECOVNOTDE, RESP PANEL UPP. ####[place] [address] [place] [address] [facility] Respiratory pathogens DNA an d RNA panel - Nasopharynx by KINZA with non-probe detectionOrdered By: Trish Christensen on 10-28-2024 Respiratory pathogens DNA and RNA panel KINZA+non-probe (Nph) [facility] Serum or plasma total choles terol/high density lipoprotein (HDL) cholesterol mass ratOrdered By: Trish Christensen on 10-28-2024 Cholesterol.total/Jovanna sterol in HDL [Mass ratio] 2.1 {ratio} <5.0 [facility] Comment on above: Performed By: #### M G, TSH3, CMP, HS TROP, LIPID ####[place] [address] [place] [address] [facility] Specific gravity Test strip (U) [Rel density]Ordered By: Trish Christensen on 10-28-2024 Specific gravity (U) [Rel density] 1.037 High 1.001-1.03 0 [facility] Thyroid Stimulating Hormoneo n 10-28-2024 TSH Qn 0.87 m[IU]/L Normal 0.45-5.33 [facility] Comment on above: Result Comment: PERF ORMED BY:[address] [place], [place] [phone] MEDICAL DIRECTORANNE OLGUIN M.D. Performed By: #### M G, TSH3, CMP, HS TROP, LIPID ####[place] [address] [place] [address] [facility] Triglyceride [Mass/volume] i n Serum or PlasmaOrdered By: Trish Christensen on 10-28-2024 Triglyceride [Mass/Vol] 85 mg/dL 0-149 [facility] Comment on above: TRIG ATP III CLASSIF ICATIONTRIG less than 150 mg/dL NormalTRIG 150-199 mg/dL Borderline highTRIG 200-500 mg/dL High TRIG greater than 500 mg/dL Very highStandard traceable to the Center for Disease Conrtrol and Prevention (CDC) test method. Troponin I High Sensitivityo n 10-28-2024 Troponin I High Sensitivity 72 Off scale high 0-15 [facility] Comment on above: Result Comment: Crit ical Result : Called to and read back by: KOSTAS GARCIA at: 10/28/2024 22:34:32 by:JACOB The Troponin units of report have been changed to meet the Chest Pain Accreditation requirement, element EC5.M1l2. Troponin units are changed from pg/ml to ng/L. Also, the decimal is removed and results are in whole numbers.PERFORMED BY:[address] [id number] MEDICAL DIRECTORANNE RAMAROBERTO Stacy Performed By: #### H S TROP ####[address] [address] [facility] Troponin I High Sensitivity 87 Off scale high 0-15 [facility] Comment on above: Result Comment: Crit ical Result : Called to and read back by: CALVIN EASTON at: 10/28/2024 16:56:36 by:DERICK The Troponin units of report have been changed to meet the Chest Pain Accreditation requirement, element EC5.M1l2. Troponin units are changed from pg/ml to ng/L. Also, the decimal is removed and results are in whole numbers.PERFORMED BY:[address]MU[address], [place] [id number] MEDICAL DIRECTORANNE ONTIVEROSROBERTO Stacy Performed By: #### M G, TSH3, CMP, HS TROP, LIPID ####[address] [address] [facility] Urobilinogen Test strip (U) [Mass/Vol]Ordered By: Trish Christensen on 10-28-2024 Urobilinogen (U) [Mass/Vol] Normal mg/dL Normal [facility] XR abdomen 1Von 10-28-2024 XR abdomen 1V Normal [facility] XR chest 1V portableon 10-28 XR chest 1V portable Normal [facility] pH of Urine by Test stripOrd ered By: Trish Christensen on 10-28-2024 pH (U) 6.0 [pH] 5.0-9.0 [facility] Comment on above: Order Comment: Name Collection Type:: Monroe Catheter Performed By: #### A DDONUAPLUS ####[facility] [place] [id number] [facility] Urine Cultureon 10-23-2024 Bacteria identified Cx Nom (U) No Growth 2 Days PERFORMED BY: [facility] [address] [place] [address] PATHOLOGIST [employer] MANAGER ANNE OLGUIN M.D. Normal [facility] Comment on above: Performed By: #### C UU ####[place] [address] [place] [address] [facility] Urine cultureOrdered By: Cristian Sams on 10-23-2024 Bacteria identified Cx Nom (U) No Growth 2 Days [facility] XR Pelvis 1 or 2 [facility] Result: Examination of the x-ray AP pelvis done here today single view with permanent images are saved to the record does show the superior pubic rami fracture. There is some slight displacement noted. Some comminution noted. The bone is osteopenic, likely osteoporotic. No evidence of further fracture or other osseous abnormality. [facility] XR Wrist - right 3 [facility] [...] No change in the hardware is noted. [facility] No Panel Informationon 09-10 Radiology Study observation (narrative) [facility] Basic Metabolic Panelon - Anion gap [Moles/Vol] 12.1 mmol/L Normal 6.0-15.0 [facility] Comment on above: Performed By: #### B MP ####[facility] [place] [id number] [facility] Calcium [Mass/Vol] 10.9 mg/dL High 8.6-10.3 [facility] Comment on above: Performed By: #### B MP ####[address] Chloride [Moles/Vol] 108 mmol/L High 98-107 [facility] Comment on above: Performed By: #### B MP ####[address] CO2 [Moles/Vol] 24.7 mmol/L Normal 21.0-31.0 [facility] Comment on above: Performed By: #### B MP ####[address] Creatinine [Mass/Vol] 1.22 mg/dL High 0.60-1.20 [facility] Comment on above: Performed By: #### B MP ####[address] Creatinine Clr Calc Pharmacy 28.68 Normal [facility] Comment on above: Result Comment: PERF ORMED BY:[address] [place], [place] [phone] MEDICAL DIRECTORANNE OLGUIN M.D. Performed By: #### B MP ####[address] Estimated GFR 45.423 mL/Min Normal [facility] Comment on above: Performed By: #### B MP ####[address] Glucose [Mass/Vol] 80 mg/dL Normal 70-100 [facility] Comment on above: Result Comment: [place] Glucose Reference Range is dependent on time and content of last meal. Glucose of more than 200 mg/dL in a nonstressed, ambulatory subject supports the diagnosis of Diabetes Mellitus. ADA recommended reference range Performed By: #### B MP ####[address] Potassium [Moles/Vol] 4.8 mmol/L Normal 3.5-5.1 [facility] Comment on above: Performed By: #### B MP ####[address] Sodium [Moles/Vol] 140 mmol/L Normal 136-145 [facility] Comment on above: Performed By: #### B MP ####[facility] [id number] [place] [id number] [facility] Urea nitrogen [Mass/Vol] 34 mg/dL High 7-25 [facility] Comment on above: Performed By: #### B MP ####[facility] [id number] [place] [id number] [facility] Calcium [Mass/volume] in Ser um or PlasmaOrdered By: Baylee Ho on 09-03-2024 Calcium [Mass/Vol] Calcium [Mass/volume ] in Serum or Plasma High 8.6-10.3 [facility] Carbon dioxide, total [Moles /volume] in Serum or PlasmaOrdered By: Baylee Ho on 09-03-2024 CO2 [Moles/Vol] Carbon dioxide, tota l [Moles/volume] in Serum or Plasma 21.0-31.0 [facility] Chloride [Moles/volume] in S sonya or PlasmaOrdered By: Baylee Ho on 09-03-2024 Chloride [Moles/Vol] Chloride [Moles/vol ume] in Serum or Plasma High 98-107 [facility] Creatinine [Mass/volume] in Serum or PlasmaOrdered By: Baylee Ho on 09-03-2024 Creatinine [Mass/Vol] Creatinine [Mass/v olume] in Serum or Plasma High 0.60-1.20 [facility] Glucose [Mass/volume] in Ser um or PlasmaOrdered By: Baylee Ho on 09-03-2024 Glucose [Mass/Vol] Glucose [Mass/volume ] in Serum or Plasma 70-100 [facility] Comment on above: ADA recommended refe rence rangeRandom Glucose Reference Range is dependent on time and content of last meal. Glucose of more than 200 mg/dL in a nonstressed, ambulatory subject supports the diagnosis of Diabetes Mellitus. No Panel InformationOrdered By: Baylee Ho on 09-03-2024 Estimated GFR (CKD-EPI) 45.423 mL/Min [facility] Creatinine Clearance (Chem 28.68 [facility] Potassium [Moles/volume] in Serum or PlasmaOrdered By: Baylee Ho on 09-03-2024 Potassium [Moles/Vol] Potassium [Moles/v olume] in Serum or Plasma 3.5-5.1 [facility] Serum or plasma anion gap de terminationOrdered By: Baylee oH on 09-03-2024 Anion gap [Moles/Vol] Serum or plasma an ion gap determination 6.0-15.0 [facility] Sodium [Moles/volume] in Ser um or PlasmaOrdered By: Baylee Ho on 09-03-2024 Sodium [Moles/Vol] Sodium [Moles/volume ] in Serum or Plasma 136-145 [facility] Urea nitrogen [Mass/volume] in Serum or PlasmaOrdered By: Baylee Ho on 09-03-2024 Urea nitrogen [Mass/Vol] Urea nitrogen [Mass/volume] in Serum or Plasma High 7-25 [facility] Basic Metabolic Panelon 08-10 Anion gap [Moles/Vol] 9.7 mmol/L Normal 6.0-15.0 [facility] Comment on above: Performed By: #### S CAN CBC, BMP ####[address] Calcium [Mass/Vol] 11.1 mg/dL High 8.6-10.3 [facility] Comment on above: Performed By: #### S CAN CBC, BMP ####[address] Chloride [Moles/Vol] 105 mmol/L Normal 98-107 [facility] Comment on above: Performed By: #### S CAN CBC, BMP ####[place] [id number] [facility] CO2 [Moles/Vol] 25.9 mmol/L Normal 21.0-31.0 [facility] Comment on above: Performed By: #### S CAN CBC, BMP ####[place] [id number] [facility] Creatinine [Mass/Vol] 1.29 mg/dL High 0.60-1.20 [facility] Comment on above: Performed By: #### S CAN CBC, BMP ####[place] [id number] [facility] Creatinine Clr Calc Pharmacy 27.12 Normal [facility] Comment on above: Result Comment: PERF ORMED BY:[address] [place], [place] [phone] MEDICAL DIRECTORANNE OLGUIN M.D. Performed By: #### S CAN CBC, BMP ####[place] [id number] [facility] Estimated GFR 42.482 mL/Min Normal [facility] Comment on above: Performed By: #### S CAN CBC, BMP ####[address] Glucose [Mass/Vol] 86 mg/dL Normal 70-100 [facility] Comment on above: Result Comment: [place] Glucose Reference Range is dependent on time and content of last meal. Glucose of more than 200 mg/dL in a nonstressed, ambulatory subject supports the diagnosis of Diabetes Mellitus. ADA recommended reference range Performed By: #### S CAN CBC, BMP ####[address] Potassium [Moles/Vol] 4.6 mmol/L Normal 3.5-5.1 [facility] Comment on above: Performed By: #### S CAN CBC, BMP ####[address] Sodium [Moles/Vol] 136 mmol/L Significant change down 136-145 [facility] Comment on above: Performed By: #### S CAN CBC, BMP ####[place] [id number] [facility] Urea nitrogen [Mass/Vol] 31 mg/dL High 7-25 [facility] Comment on above: Performed By: #### S CAN CBC, BMP ####[place] [id number] [facility] Basophils Auto (Bld) [#/Vol] Ordered By: Baylee Ho on 09-02-2024 Basophils (Bld) [#/Vol] Automated basophil count 0.0-0.2 [facility] Basophils/100 WBC Auto (Bld) Ordered By: Baylee Ho on 09-02-2024 Basophils/100 WBC (Bld) Automated basophil % . [facility] [place] cells [Presence] in Blo od by Light microscopyOrdered By: Baylee Witt on 09-02-2024 [place] cells LM Ql (Bld) [place] cells [Prese nce] in Blood by Light microscopy [facility] Eosinophils Auto (Bld) [#/Vo l]Ordered By: Baylee Ho on 09-02-2024 Eosinophils (Bld) [#/Vol] Automated eosinophil count 0.0-0.45 [facility] Eosinophils/100 WBC Auto (Bl d)Ordered By: Baylee Ho on 09-02-2024 Eosinophils/100 WBC (Bld) Automated eosinophil % . [facility] Erythrocyte distribution wid th Auto (RBC) [Ratio]Ordered By: Baylee Witt on 09-02-2024 Erythrocyte distribution width (RBC) [Ratio] Erythrocyte distribution width [Ratio] by Automated count 11.9-15.3 [facility] Erythrocyte morphology findi ng [Identifier] in BloodOrdered By: Baylee Witt on 09-02-2024 RBC morphology finding Nom (Bld) RBC morphology [facility] Hematocrit Auto (Bld) [Volum e fraction]Ordered By: Baylee oH on 09-02-2024 Hematocrit (Bld) [Volume fraction] Hematocrit [Volume Fraction] of Blood by Automated count 34.0-46.4 [facility] Hemoglobin [Mass/volume] in BloodOrdered By: Baylee Ho on 09-02-2024 Hemoglobin (Bld) [Mass/Vol] Hemoglobin [Mass/volume] in Blood 11.8-15.4 [facility] Leukocytes [#/volume] correc ej for nucleated erythrocytes in Blood by Automated counOrdered By: Baylee Ho on 09-02-2024 WBC corrected for nucl RBC Auto (Bld) [#/Vol] Leukocytes [#/volume] corrected for nucleated erythrocytes in Blood by Automated coun 3.8-11.6 [facility] Lymphocytes Auto (Bld) [#/Vo l]Ordered By: Baylee Ho on 09-02-2024 Lymphocytes (Bld) [#/Vol] Lymphocytes [#/volume] in Blood by Automated count 1.00-4.8 [facility] Lymphocytes/100 WBC Auto (Bl d)Ordered By: Baylee Ho on 09-02-2024 Lymphocytes/100 WBC (Bld) Lymphocytes/100 leukocytes in Blood by Automated count . [facility] MCH Auto (RBC) [Entitic mass ]Ordered By: Baylee Ho on 09-02-2024 MCH (RBC) [Entitic mass] MCH [Entitic mass] by Automated count 24.7-34.3 [facility] MCHC Auto (RBC) [Mass/Vol]Or dered By: Baylee Ho on 09-02-2024 MCHC (RBC) [Mass/Vol] MCHC [Mass/volume] by Automated count 32.0-35.0 [facility] MCV Auto (RBC) [Entitic vol] Ordered By: Baylee Ho on 09-02-2024 MCV (RBC) [Entitic vol] MCV [Entitic vol ume] by Automated count 80-100 [facility] Monocytes Auto (Bld) [#/Vol] Ordered By: Baylee Ho on 09-02-2024 Monocytes (Bld) [#/Vol] Automated blood monocyte count High 0.0-0.8 [facility] Monocytes/100 WBC Auto (Bld) Ordered By: Baylee Ho on 09-02-2024 Monocytes/100 WBC (Bld) Automated monocyte % . [facility] Neutrophils Auto (Bld) [#/Vo l]Ordered By: Baylee Ho on 09-02-2024 Neutrophils (Bld) [#/Vol] Neutrophils [#/volume] in Blood by Automated count 1.8-7.7 [facility] Neutrophils/100 WBC Auto (Bl d)Ordered By: Baylee Ho on 09-02-2024 Neutrophils/100 WBC (Bld) Automated neutrophil % . [facility] Nucleated erythrocytes [Pres ence] in Blood by Automated countOrdered By: Baylee Ho on 09-02-2024 Nucleated RBC Auto Ql (Bld) Nucleated erythrocytes [Presence] in Blood by Automated count 0-0.5 [facility] Ovalocytes [Presence] in Blo od by Light microscopyOrdered By: Baylee Witt on 09-02-2024 Ovalocytes LM Ql (Bld) Ovalocyte detection [facility] Platelet adequacy [Presence] in Blood by Light microscopyOrdered By: Baylee Ho on 09-02-2024 Platelets LM Ql (Bld) Platelet adequacy [Presence] in Blood by Light microscopy Normal [facility] Platelet mean volume Auto (B ld) [Entitic vol]Ordered By: Baylee Ho on 09-02-2024 Platelet mean volume (Bld) [Entitic vol] Platelet mean volume [Entitic volume] in Blood by Automated count High 6.3-10.7 [facility] Platelet morphology finding [Identifier] in BloodOrdered By: Baylee Witt on 09-02-2024 Platelet morphology finding Nom (Bld) Platelet morphology finding [Identifier] in Blood [facility] Platelets Auto (Bld) [#/Vol] Ordered By: Baylee Ho on 09-02-2024 Platelets (Bld) [#/Vol] Platelets [#/vol ume] in Blood by Automated count Significant change down 150-450 [facility] Comment on above: [place]: 254 on -1057 Platelets Large [Presence] i n Blood by Light microscopyOrdered By: Baylee Ho on 09-02-2024 Platelets Large LM Ql (Bld) Platelets Large [Presence] in Blood by Light microscopy [facility] Poikilocytosis [Presence] in Blood by Light microscopyOrdered By: Baylee Ho on 09-02-2024 Poikilocytosis LM Ql (Bld) Poikilocytosis [Presence] in Blood by Light microscopy [facility] RBC Auto (Bld) [#/Vol]Ordere d By: Bayleemiguelangel HainesEduar on 09-02-2024 RBC (Bld) [#/Vol] Erythrocytes [#/volu me] in Blood by Automated count 3.60-5.00 [facility] Scan and CBCon 09-02-2024 Basophils (Bld) [#/Vol] 0.1 10*3/uL Normal 0.0-0.2 [facility] Comment on above: Result Comment: PERF ORMED BY:[address] [place], [place] [phone] MEDICAL DIRECTORANNE OLGUIN M.D. Performed By: #### S CAN CBC, BMP ####[address] Basophils/100 WBC (Bld) 0.7 % Normal . [facility] Comment on above: Performed By: #### S CAN CBC, BMP ####[address] Crenated RBC Slight Normal [facility] Comment on above: Performed By: #### S CAN CBC, BMP ####[address] Eosinophils (Bld) [#/Vol] 0.1 10*3/uL Normal 0.0-0.45 [facility] Comment on above: Performed By: #### S CAN CBC, BMP ####[address] Eosinophils/100 WBC (Bld) 1.1 % Normal . [facility] Comment on above: Performed By: #### S CAN CBC, BMP ####[address] Erythrocyte distribution width (RBC) [Ratio] 15.0 % Normal 11.9-15.3 [facility] Comment on above: Performed By: #### S CAN CBC, BMP ####[address] Hematocrit (Bld) [Volume fraction] 37.2 % Normal 34.0-46.4 [facility] Comment on above: Performed By: #### S CAN CBC, BMP ####[place] [id number] [facility] Hemoglobin (Bld) [Mass/Vol] 12.6 g/dL Normal 11.8-15.4 [facility] Comment on above: Performed By: #### S CAN CBC, BMP ####[place] [id number] [facility] Large Platelets Slight Normal [facility] Comment on above: Result Comment: PERF ORMED BY:[address] [place], [place] [phone] MEDICAL DIRECTORANNE OLGUIN M.D. Performed By: #### S CAN CBC, BMP ####[address] Lymphocytes (Bld) [#/Vol] 1.4 10*3/uL Normal 1.00-4.8 [facility] Comment on above: Performed By: #### S CAN CBC, BMP ####[place] [id number] [facility] Lymphocytes/100 WBC (Bld) 15.8 % Normal . [facility] Comment on above: Performed By: #### S CAN CBC, BMP ####[place] [id number] [facility] MCH (RBC) [Entitic mass] 31.8 pg Normal 24.7-34.3 [facility] Comment on above: Performed By: #### S CAN CBC, BMP ####[place] [id number] [facility] MCV (RBC) [Entitic vol] 94.1 fL Normal 80-100 [facility] Comment on above: Performed By: #### S CAN CBC, BMP ####[place] [id number] [facility] Mean Corpuscular HGB Conc 33.8 g/dL Normal 32.0-35.0 [facility] Comment on above: Performed By: #### S CAN CBC, BMP ####[address] Monocytes (Bld) [#/Vol] 1.5 10*3/uL High 0.0-0.8 [facility] Comment on above: Performed By: #### S CAN CBC, BMP ####[place] [id number] [facility] Monocytes/100 WBC (Bld) 17.1 % Normal . [facility] Comment on above: Performed By: #### S CAN CBC, BMP ####[address] Neutrophils (Bld) [#/Vol] 5.7 10*3/uL Normal 1.8-7.7 [facility] Comment on above: Performed By: #### S CAN CBC, BMP ####[address] Neutrophils/100 WBC (Bld) 65.3 % Normal . [facility] Comment on above: Performed By: #### S CAN CBC, BMP ####[address] NRBC% 0.2 /100{WBC} Normal 0-0.5 [facility] Comment on above: Performed By: #### S CAN CBC, BMP ####[address] Ovalocytes Slight Normal [facility] Comment on above: Performed By: #### S CAN CBC, BMP ####[place] [id number] [facility] Platelet Estimate Normal Normal Normal [facility] Comment on above: Performed By: #### S CAN CBC, BMP ####[place] [id number] [facility] Platelet mean volume (Bld) [Entitic vol] 11.2 fL High 6.3-10.7 [facility] Comment on above: Performed By: #### S CAN CBC, BMP ####[place] [id number] [facility] Platelets (Bld) [#/Vol] 194 10*3/uL Signific ant change down 150-450 [facility] Comment on above: Performed By: #### S CAN CBC, BMP ####[address] Poikilocytosis Slight Normal [facility] Comment on above: Performed By: #### S CAN CBC, BMP ####[place] [id number] RBC (Bld) [#/Vol] 3.95 10*6/uL Normal 3.60-5.00 [facility] Comment on above: Performed By: #### S CAN CBC, BMP ####[address] Target Cells Slight Normal [facility] Comment on above: Performed By: #### S CAN CBC, BMP ####[address] WBC (Bld) [#/Vol] 8.7 10*3/uL Normal 3.8-11.6 [facility] Comment on above: Performed By: #### S CAN CBC, BMP ####[address] Target cells [Presence] in B lood by Light microscopyOrdered By: Baylee Witt on 09-02-2024 Target cells LM Ql (Bld) Target cells [facility] WBC Auto (Bld) [#/Vol]Ordere d By: Baylee Ho on 09-02-2024 WBC (Bld) [#/Vol] Leukocytes [#/volume ] in Blood by Automated count 3.8-11.6 [facility] X-ray reportOrdered By: Apollo Guerrero on 09-02-2024 Study report [facility] [address] [place] [address] [place] [address] XRay Report Signed Patient: Judith Land MR#: [id number] : 1945 Acct:[id number] Age/Sex: 79 / F ADM Date: 5 Loc: Room: [address] [place] [address] Type: ADM IN Attending Dr: Pa Neil [...] RAMUS.. Impression dictated by: Ramsey Guerrero Jr., Niya09/02/2024 5:54 PM Dictation Location: [place] [address] Transcribed By: [facility] 09/02/241753 Dictated By: Ramsey Guerrero Jr, DO 09/02/241753 Signed By: 09/02/241753 [facility] XR hip LT min 2V(w/wo pelvis )*on 09-02-2024 XR hip LT min 2V(w/wo pelvis)* Normal [facility] CT head/brain wo conon 09-01 CT head/brain wo con Normal [facility] Acanthocytes [Presence] in B lood by Light microscopyOrdered By: Pa Neil on 08-31-2024 Acanthocytes LM Ql (Bld) Acanthocytes [Presence] in Blood by Light microscopy [facility] Anisocytosis LM Ql (Bld)Orde red By: Pa Neil on 08-31-2024 Anisocytosis Ql (Bld) Anisocytosis [Pres ence] in Blood by Light microscopy [facility] Basic Metabolic Panelon 08-10 Anion gap [Moles/Vol] 13.0 mmol/L Normal 6.0-15.0 [facility] Comment on above: Performed By: #### B MP, SCAN CBC ####[facility] [place] [address] [facility] Calcium [Mass/Vol] 11.6 mg/dL High 8.6-10.3 [facility] Comment on above: Performed By: #### B MP, SCAN CBC ####[place] [address] [place] [address] [place] Chloride [Moles/Vol] 112 mmol/L High 98-107 [facility] Comment on above: Performed By: #### B MP, SCAN CBC ####[address] [address] [place] CO2 [Moles/Vol] 23.9 mmol/L Normal 21.0-31.0 [facility] Comment on above: Performed By: #### B MP, SCAN CBC ####[place] [address] [place] [address] [place] Creatinine [Mass/Vol] 1.34 mg/dL High 0.60-1.20 [facility] Comment on above: Performed By: #### B MP, SCAN CBC ####[address] [address] [place] Creatinine Clr Calc Pharmacy 26.11 Normal [facility] Comment on above: Result Comment: PERF ORMED BY:[address] [place], [place] [phone] MEDICAL DIRECTORANNE OLGUIN M.D. Performed By: #### B MP, SCAN CBC ####[address] [address] [facility] Estimated GFR 40.587 mL/Min Normal [facility] Comment on above: Performed By: #### B MP, SCAN CBC ####[place] [address] [place] [address] [facility] Glucose [Mass/Vol] 94 mg/dL Normal 70-100 [facility] Comment on above: Result Comment: [place] Glucose Reference Range is dependent on time and content of last meal. Glucose of more than 200 mg/dL in a nonstressed, ambulatory subject supports the diagnosis of Diabetes Mellitus. ADA recommended reference range Performed By: #### B MP, SCAN CBC ####[address] Potassium [Moles/Vol] 4.9 mmol/L Normal 3.5-5.1 [facility] Comment on above: Performed By: #### B MP, SCAN CBC ####[address] Sodium [Moles/Vol] 144 mmol/L Normal 136-145 [facility] Comment on above: Performed By: #### B MP, SCAN CBC ####[address] Urea nitrogen [Mass/Vol] 33 mg/dL High 7-25 [facility] Comment on above: Performed By: #### B MP, SCAN CBC ####[address] Scan and CBCon 08-31-2024 Acanthocytes Slight Normal [facility] Comment on above: Performed By: #### B MP, SCAN CBC ####[address] Anisocytosis Ql (Bld) Slight Normal [facility] Comment on above: Performed By: #### B MP, SCAN CBC ####[address] Basophils (Bld) [#/Vol] 0.0 10*3/uL Normal 0.0-0.2 [facility] Comment on above: Performed By: #### B MP, SCAN CBC ####[address] Basophils/100 WBC (Bld) 0.5 % Normal . [facility] Comment on above: Performed By: #### B MP, SCAN CBC ####[address] Eosinophils (Bld) [#/Vol] 0.0 10*3/uL Normal 0.0-0.45 [facility] Comment on above: Performed By: #### B MP, SCAN CBC ####[place] [id number] [facility] Eosinophils/100 WBC (Bld) 0.7 % Normal . [facility] Comment on above: Performed By: #### B MP, SCAN CBC ####[address] Erythrocyte distribution width (RBC) [Ratio] 15.4 % High 11.9-15.3 [facility] Comment on above: Performed By: #### B MP, SCAN CBC ####[address] Hematocrit (Bld) [Volume fraction] 39.8 % Normal 34.0-46.4 [facility] Comment on above: Performed By: #### B MP, SCAN CBC ####[address] Hemoglobin (Bld) [Mass/Vol] 13.6 g/dL Normal 11.8-15.4 [facility] Comment on above: Performed By: #### B MP, SCAN CBC ####[address] Large Platelets Slight Normal [facility] Comment on above: Result Comment: PERF ORMED BY:[address] [place], [place] [phone] MEDICAL DIRECTORANNE OLGUIN M.D. Performed By: #### B MP, SCAN CBC ####[address] Lymphocytes (Bld) [#/Vol] 1.4 10*3/uL Normal 1.00-4.8 [facility] Comment on above: Performed By: #### B MP, SCAN CBC ####[address] Lymphocytes/100 WBC (Bld) 20.6 % Normal . [facility] Comment on above: Performed By: #### B MP, SCAN CBC ####[place] [id number] [facility] MCH (RBC) [Entitic mass] 31.7 pg Normal 24.7-34.3 [facility] Comment on above: Performed By: #### B MP, SCAN CBC ####[address] MCV (RBC) [Entitic vol] 92.9 fL Normal 80-100 [facility] Comment on above: Performed By: #### B MP, SCAN CBC ####[address] Mean Corpuscular HGB Conc 34.2 g/dL Normal 32.0-35.0 [facility] Comment on above: Performed By: #### B MP, SCAN CBC ####[address] Monocytes (Bld) [#/Vol] 0.9 10*3/uL High 0.0-0.8 [facility] Comment on above: Performed By: #### B MP, SCAN CBC ####[address] Monocytes/100 WBC (Bld) 13.4 % Normal . [facility] Comment on above: Performed By: #### B MP, SCAN CBC ####[address] Neutrophils (Bld) [#/Vol] 4.3 10*3/uL Normal 1.8-7.7 [facility] Comment on above: Performed By: #### B MP, SCAN CBC ####[address] Neutrophils/100 WBC (Bld) 64.8 % Normal . [facility] Comment on above: Performed By: #### B MP, SCAN CBC ####[address] NRBC% 0.1 /100{WBC} Normal 0-0.5 [facility] Comment on above: Performed By: #### B MP, SCAN CBC ####[place] [id number] [place] Ovalocytes Slight Normal [facility] Comment on above: Performed By: #### B MP, SCAN CBC ####[place] [id number] [facility] Platelet Estimate Normal Normal Normal [facility] Comment on above: Performed By: #### B MP, SCAN CBC ####[address] Platelet mean volume (Bld) [Entitic vol] 10.7 fL Normal 6.3-10.7 [facility] Comment on above: Performed By: #### B MP, SCAN CBC ####[address] Platelet Morphology Normal Normal Normal [facility] Comment on above: Performed By: #### B MP, SCAN CBC ####[address] Platelets (Bld) [#/Vol] 254 10*3/uL Normal 150-450 [facility] Comment on above: Performed By: #### B MP, SCAN CBC ####[address] Poikilocytosis Slight Normal [facility] Comment on above: Performed By: #### B MP, SCAN CBC ####[address] RBC (Bld) [#/Vol] 4.29 10*6/uL Normal 3.60-5.00 [facility] Comment on above: Performed By: #### B MP, SCAN CBC ####[address] Target Cells Slight Normal [facility] Comment on above: Performed By: #### B MP, SCAN CBC ####[address] WBC (Bld) [#/Vol] 6.6 10*3/uL Normal 3.8-11.6 [facility] Comment on above: Performed By: #### B MP, SCAN CBC ####[address] [place] [address] [place] Appearance of UrineOrdered B y: Pa Neil on 08-30-2024 Appearance (U) Urine appearance Clear [facility] Bacteria [Presence] in Urine by AutomatedOrdered By: Pa Neil on 08-30-2024 Bacteria Auto Ql (U) Bacteria [Presence] in Urine by Automated None Seen [facility] Bilirubin Test strip Ql (U)O rdered By: Pa Neil on 08-30-2024 Bilirubin Ql (U) Bilirubin.total [Presence] in Urine by Test strip Negative [facility] Color Auto (U)Ordered By: Jacques Neil on 08-30-2024 Color (U) Color of Urine by Auto Yellow [facility] Dipstick and Microscopicon 0 08-30-2024 Appearance (U) Clear Normal Clear [facility] Comment on above: Order Comment: Name Collection Type:: Clean-Voided Midstream Performed By: #### A DDONUAPLUS, CUU ####[place] [address] [place] [address] [place] Bacteria,Urine None Seen Normal None Seen [facility] Comment on above: Order Comment: Name Collection Type:: Clean-Voided Midstream Performed By: #### A DDONUAPLUS, CUU ####[place] [address] [place] [address] [place] Bilirubin,Urine Negative Normal Negative [facility] Comment on above: Order Comment: Name Collection Type:: Clean-Voided Midstream Performed By: #### A DDONUAPLUS, CUU ####[place] [address] [place] [address] [place] Color (U) Light-Yellow Normal Yellow [facility] Comment on above: Order Comment: Name Collection Type:: Clean-Voided Midstream Performed By: #### A DDONUAPLUS, CUU ####[place] [address] [place] [address] [place] Glucose Ql (U) Normal Normal Normal [facility] Comment on above: Order Comment: Name Collection Type:: Clean-Voided Midstream Performed By: #### A DDONUAPLUS, CUU ####[address] [address] [facility] Hyaline Casts,Urine None Normal 0-8 [facility] Comment on above: Order Comment: Name Collection Type:: Clean-Voided Midstream Performed By: #### A DDONUAPLUS, CUU ####[address] [address] [facility] Ketones Ql (U) Negative Normal Negative [facility] Comment on above: Order Comment: Name Collection Type:: Clean-Voided Midstream Performed By: #### A DDONUAPLUS, CUU ####[address] [address] [facility] Leukocyte esterase Test strip Ql (U) 2+ High Negative [facility] Comment on above: Order Comment: Name Collection Type:: Clean-Voided Midstream Performed By: #### A DDONUAPLUS, CUU ####[place] [id number] [facility] Mucus,Urine Rare Normal [facility] Comment on above: Order Comment: Name Collection Type:: Clean-Voided Midstream Result Comment: PERF ORMED BY:[address] [place], [place] [phone] MEDICAL DIRECTORANNE OLGUIN M.D. Performed By: #### A DDONUAPLUS, CUU ####[place] [id number] [facility] Nitrite,Urine Negative Normal Negative [facility] Comment on above: Order Comment: Name Collection Type:: Clean-Voided Midstream Performed By: #### A DDONUAPLUS, CUU ####[place] [id number] [facility] [facility] Occ[facility] Blood,Urine Negative Normal Negative [facility] Comment on above: Order Comment: Name Collection Type:: Clean-Voided Midstream Result Comment: PERF ORMED BY:[place] [address] [address] [place], [place] [id number] MEDICAL DIRECTORMOTRINO OLGUIN M.D. Performed By: #### A DDONUAPLUS, CUU ####[place] [id number] [facility] pH (U) 6.5 [pH] Normal 5.0-9.0 [facility] Comment on above: Order Comment: Name Collection Type:: Clean-Voided Midstream Performed By: #### A DDONUAPLUS, CUU ####[place] [id number] [facility] Protein (U) [Mass/Vol] 50 mg/dL High Negative [facility] Comment on above: Order Comment: Name Collection Type:: Clean-Voided Midstream Performed By: #### A DDONUAPLUS, CUU ####[place] [id number] [facility] RBC,Urine 10-19 High 0-4 [facility] Comment on above: Order Comment: Name Collection Type:: Clean-Voided Midstream Performed By: #### A DDONUAPLUS, CUU ####[place] [id number] [facility] Specificy [place],Urine 1.013 Normal 1.00 1-1.03 0 [facility] Comment on above: Order Comment: Name Collection Type:: Clean-Voided Midstream Performed By: #### A DDONUAPLUS, CUU ####[address] [address] [facility] Squamous Epithelial Cell,Urine 1-2 Normal 0-2 [facility] Comment on above: Order Comment: Name Collection Type:: Clean-Voided Midstream Performed By: #### A DDONUAPLUS, CUU ####[address] [address] [facility] Urobilinogen,Urine Normal Normal Normal [facility] Comment on above: Order Comment: Name Collection Type:: Clean-Voided Midstream Performed By: #### A DDONUAPLUS, CUU ####[place] [id number] [facility] WBC,Urine 10-19 High 0-4 [facility] Comment on above: Order Comment: Name Collection Type:: Clean-Voided Midstream Performed By: #### A VADIM ESPINOSA ####[facility] [id number] [place] [address] [facility] Epithelial cells.squamous [# /area] in Urine sediment by Automated countOrdered By: Pa Neil on 08-30-2024 Epithelial cells.squamous Auto (Urine sed) [#/Area] Epithelial cells.squamous [#/area] in Urine sediment by Automated count 0-2 [facility] Erythrocytes [#/area] in Uri ne sediment by Automated countOrdered By: Pa Neil on 08-30-2024 RBC Auto (Urine sed) [#/Area] Erythrocytes [#/area] in Urine sediment by Automated count High 0-4 [facility] Glucose [Mass/volume] in Uri ne by Test stripOrdered By: Pa Neil on 08-30-2024 Glucose Test strip (U) [Mass/Vol] Glucose [Mass/volume] in Urine by Test strip Normal [facility] Hemoglobin Test strip Ql (U) Ordered By: Pa Neil on 08-30-2024 Hemoglobin Ql (U) Hemoglobin [Presence ] in Urine by Test strip Negative [facility] Hyaline casts [#/area] in Ur ine sediment by Automated countOrdered By: Pa Neil on 08-30-2024 Hyaline casts Auto (Urine sed) [#/Area] Hyaline casts [#/area] in Urine sediment by Automated count 0-8 [facility] Ketones Test strip Ql (U)Ord ered By: Pa Neil on 08-30-2024 Ketones Ql (U) Ketones [Presence] i n Urine by Test strip Negative [facility] Leukocyte esterase [Presence ] in Urine by Test stripOrdered By: Pa Neil on 08-30-2024 Leukocyte esterase Test strip Ql (U) Leukocyte esterase [Presence] in Urine by Test strip High Negative [facility] Leukocytes [#/area] in Urine sediment by Automated countOrdered By: Pa Neil on 08-30-2024 WBC Auto (Urine sed) [#/Area] Leukocytes [#/area] in Urine sediment by Automated count High 0-4 [facility] Mucus [Presence] in Urine by AutomatedOrdered By: Pa Neil on 08-30-2024 Mucus Auto Ql (U) Mucus [Presence] in Urine by Automated [facility] Nitrite Test strip Ql (U)Ord ered By: Pa Neil on 08-30-2024 Nitrite Ql (U) Nitrite [Presence] i n Urine by Test strip Negative [facility] Protein Test strip (U) [Mass /Vol]Ordered By: Pa Neil on 08-30-2024 Protein (U) [Mass/Vol] Protein [Mass/vol ume] in Urine by Test strip High Negative [facility] Specific gravity Test strip (U) [Rel density]Ordered By: Pa Neil on 08-30-2024 Specific gravity (U) [Rel density] Specific gravity of Urine by Test strip 1.001-1.03 0 [facility] Urine Cultureon 08-30-2024 Bacteria identified Cx Nom (U) Normal [facility] Comment on above: Performed By: #### A DDONUANICA, CUU ####[facility] [id number] Urine cultureOrdered By: Fe Neil on 08-30-2024 Bacteria identified Cx Nom (U) Urine culture [facility] Urobilinogen Test strip (U) [Mass/Vol]Ordered By: Pa Neil on 08-30-2024 Urobilinogen (U) [Mass/Vol] Urobilinogen [Mass/volume] in Urine by Test strip Normal [facility] pH Test strip (U)Ordered By: Pa Neil on 08-30-2024 pH (U) pH of Urine by Test strip 5.0-9.0 [facility] ECG 12 lead ECGon 08-27-2024 ECG 12 lead ECG Normal [facility] Alanine aminotransferase [En zymatic activity/volume] in Serum or PlasmaOrdered By: Pa Neil on 08-26-2024 ALT [Catalytic activity/Vol] Alanine aminotransferase [Enzymatic activity/volume] in Serum or Plasma Low 7-52 [facility] Albumin [Mass/volume] in Ser um or Plasma by Bromocresol green (BCG) dye binding methoOrdered By: Pa Neil on 08-26-2024 Albumin BCG dye [Mass/Vol] Albumin [Mass/volume] in Serum or Plasma by Bromocresol green (BCG) dye binding metho 3.5-5.7 [facility] Alkaline phosphatase [Enzyma tic activity/volume] in Serum or PlasmaOrdered By: Pa Neil on 08-26-2024 ALP [Catalytic activity/Vol] Alkaline phosphatase [Enzymatic activity/volume] in Serum or Plasma High 34-104 [facility] Aspartate aminotransferase [ Enzymatic activity/volume] in Serum or PlasmaOrdered By: Pa Neil on 08-26-2024 AST [Catalytic activity/Vol] Aspartate aminotransferase [Enzymatic activity/volume] in Serum or Plasma 13-39 [facility] Basophils/100 WBC Manual cnt (Bld)Ordered By: Pa Neil on 08-26-2024 Basophils/100 WBC (Bld) Basophils/100 le ukocytes in Blood by Manual count 0-2 [facility] Bilirubin.total [Mass/volume ] in Serum or PlasmaOrdered By: Pa Neil on 08-26-2024 Bilirubin [Mass/Vol] Bilirubin.total [Mass/volume] in Serum or Plasma 0.3-1.0 [facility] Comprehensive Metabolic Pane rm 08-26-2024 Albumin [Mass/Vol] 3.8 g/dL Normal 3.5-5.7 [facility] Comment on above: Performed By: #### C MP, PAB, DIFF CBC ####[facility] [place] [id number] [facility] Albumin/Globulin [Mass ratio] 1.7 {ratio} Normal [facility] Comment on above: Performed By: #### C MP, PAB, DIFF CBC ####[facility] [place] [id number] [facility] ALP [Catalytic activity/Vol] 107 U/L High 34-104 [facility] Comment on above: Performed By: #### C MP, PAB, DIFF CBC ####[facility] [address] ALT [Catalytic activity/Vol] 4 U/L Low 7-52 [facility] Comment on above: Performed By: #### C MP, PAB, DIFF CBC ####[address] Anion gap [Moles/Vol] 10.2 mmol/L Normal 6.0-15.0 [facility] Comment on above: Performed By: #### C MP, PAB, DIFF CBC ####[address] AST [Catalytic activity/Vol] 15 U/L Normal 13-39 [facility] Comment on above: Performed By: #### C MP, PAB, DIFF CBC ####[address] Bilirubin [Mass/Vol] 0.5 mg/dL Normal 0.3-1.0 [facility] Comment on above: Performed By: #### C MP, PAB, DIFF CBC ####[address] Calcium [Mass/Vol] 11.0 mg/dL High 8.6-10.3 [facility] Comment on above: Performed By: #### C MP, PAB, DIFF CBC ####[address] Chloride [Moles/Vol] 108 mmol/L High 98-107 [facility] Comment on above: Performed By: #### C MP, PAB, DIFF CBC ####[address] CO2 [Moles/Vol] 29.5 mmol/L Normal 21.0-31.0 [facility] Comment on above: Performed By: #### C MP, PAB, DIFF CBC ####[address] Creatinine [Mass/Vol] 1.14 mg/dL Normal 0.60-1.20 [facility] Comment on above: Performed By: #### C MP, PAB, DIFF CBC ####[place] [id number] Creatinine Clr Calc Pharmacy 31.08 Normal [facility] Comment on above: Performed By: #### C MP, PAB, DIFF CBC ####[address] Estimated GFR 49.274 mL/Min Normal [facility] Comment on above: Performed By: #### C MP, PAB, DIFF CBC ####[address] Globulin (S) [Mass/Vol] 2.2 g/dL Normal [facility] Comment on above: Performed By: #### C MP, PAB, DIFF CBC ####[address] Glucose [Mass/Vol] 86 mg/dL Normal 70-100 [facility] Comment on above: Result Comment: [facility] Glucose Reference Range is dependent on time and content of last meal. Glucose of more than 200 mg/dL in a nonstressed, ambulatory subject supports the diagnosis of Diabetes Mellitus. ADA recommended reference range Performed By: #### C MP, PAB, DIFF CBC ####[address] Potassium [Moles/Vol] 3.7 mmol/L Normal 3.5-5.1 [facility] Comment on above: Performed By: #### C MP, PAB, DIFF CBC ####[address] Protein [Mass/Vol] 6.0 g/dL Low 6.4-8.9 [facility] Comment on above: Performed By: #### C MP, PAB, DIFF CBC ####[address] Sodium [Moles/Vol] 144 mmol/L Normal 136-145 [facility] Comment on above: Performed By: #### C MP, PAB, DIFF CBC ####[address] Urea nitrogen [Mass/Vol] 22 mg/dL Normal 7-25 [facility] Comment on above: Performed By: #### C MP, PAB, DIFF CBC ####[address] Diff and CBCon 08-26-2024 Acanthocytes Slight Normal [facility] Comment on above: Performed By: #### C MP, PAB, DIFF CBC ####[address] Basophils/100 WBC (Bld) 1 % Normal 0-2 [facility] Comment on above: Performed By: #### C MP, PAB, DIFF CBC ####[address] Crenated RBC Moderate Normal [facility] Comment on above: Performed By: #### C MP, PAB, DIFF CBC ####[address] Eosinophils/100 WBC (Bld) 3 % Normal 1-3 [facility] Comment on above: Performed By: #### C MP, PAB, DIFF CBC ####[address] Erythrocyte distribution width (RBC) [Ratio] 14.9 % Normal 11.9-15.3 [facility] Comment on above: Performed By: #### C MP, PAB, DIFF CBC ####[address] Giant Platelet Tally 1 /100{WBC} Normal [facility] Comment on above: Performed By: #### C MP, PAB, DIFF CBC ####[address] Hematocrit (Bld) [Volume fraction] 38.7 % Normal 34.0-46.4 [facility] Comment on above: Performed By: #### C MP, PAB, DIFF CBC ####[address] Hemoglobin (Bld) [Mass/Vol] 13.0 g/dL Normal 11.8-15.4 [facility] Comment on above: Performed By: #### C MP, PAB, DIFF CBC ####[address] Large Platelets Slight Normal [facility] Comment on above: Result Comment: PERF ORMED BY:[address] [place], [place] [id number] MEDICAL DIRECTORANNE OLGUIN M.D. Performed By: #### C MP, PAB, DIFF CBC ####[address] Lymphocytes/100 WBC (Bld) 28 % Normal 18-42 [facility] Comment on above: Performed By: #### C MP, PAB, DIFF CBC ####[address] MCH (RBC) [Entitic mass] 31.1 pg Normal 24.7-34.3 [facility] Comment on above: Performed By: #### C MP, PAB, DIFF CBC ####[address] MCV (RBC) [Entitic vol] 92.3 fL Normal 80-100 [facility] Comment on above: Performed By: #### C MP, PAB, DIFF CBC ####[address] Mean Corpuscular HGB Conc 33.7 g/dL Normal 32.0-35.0 [facility] Comment on above: Performed By: #### C MP, PAB, DIFF CBC ####[address] Monocytes/100 WBC (Bld) 12 % High 2-11 [facility] Comment on above: Performed By: #### C MP, PAB, DIFF CBC ####[address] Myelocytes 1 % High 0-0 [facility] Comment on above: Performed By: #### C MP, PAB, DIFF CBC ####[address] Ovalocytes Moderate Normal [facility] Comment on above: Performed By: #### C MP, PAB, DIFF CBC ####[place] [id number] [facility] Platelet Estimate Normal Normal Normal [facility] Comment on above: Performed By: #### C MP, PAB, DIFF CBC ####[place] [id number] [facility] Platelet mean volume (Bld) [Entitic vol] 9.9 fL Normal 6.3-10.7 [facility] Comment on above: Result Comment: PERF ORMED BY:[address] [place], [place] [phone] MEDICAL DIRECTORANNE OLGUIN M.D. Performed By: #### C MP, PAB, DIFF CBC ####[place] [id number] [facility] Platelets (Bld) [#/Vol] 254 10*3/uL Normal 150-450 [facility] Comment on above: Performed By: #### C MP, PAB, DIFF CBC ####[address] Poikilocytosis Moderate Normal [facility] Comment on above: Performed By: #### C MP, PAB, DIFF CBC ####[place] [id number] [facility] RBC (Bld) [#/Vol] 4.19 10*6/uL Normal 3.60-5.00 [facility] Comment on above: Performed By: #### C MP, PAB, DIFF CBC ####[place] [id number] [facility] Reactive Lymphocytes 2 % Normal 0-12 [facility] Comment on above: Performed By: #### C MP, PAB, DIFF CBC ####[place] [id number] [facility] Schistocytes Slight Normal [facility] Comment on above: Performed By: #### C MP, PAB, DIFF CBC ####[address] [place] [address] [place] Segmented neutrophils/100 WBC (Bld) 53 % Normal 50-70 [facility] Comment on above: Performed By: #### C MP, PAB, DIFF CBC ####[facility] Target Cells Slight Normal [facility] Comment on above: Performed By: #### C MP, PAB, DIFF CBC ####[place] [id number] WBC (Bld) [#/Vol] 8.9 10*3/uL Normal 3.8-11.6 [facility] Comment on above: Performed By: #### C MP, PAB, DIFF CBC ####[place] [id number] Eosinophils/100 WBC Manual c nt (Bld)Ordered By: Pa Neil on 08-26-2024 Eosinophils/100 WBC (Bld) Eosinophils/100 leukocytes in Blood by Manual count 1-3 [facility] Giant platelets/100 leukocyt es [Ratio] in Blood by Manual countOrdered By: Pa Neil on 08-26-2024 Giant platelets/100 WBC Manual cnt (Bld) [Ratio] Giant platelets/100 leukocytes [Ratio] in Blood by Manual count [facility] Globulin Calc (S) [Mass/Vol] Ordered By: Pa Neil on 08-26-2024 Globulin (S) [Mass/Vol] Serum globulin measurement by calculation (mass/volume) [facility] Lymphocytes/100 WBC Manual c nt (Bld)Ordered By: Pa Neil on 08-26-2024 Lymphocytes/100 WBC (Bld) Lymphocytes/100 leukocytes in Blood by Manual count 18-42 [facility] Monocytes/100 WBC Manual cnt (Bld)Ordered By: Pa Neil on 08-26-2024 Monocytes/100 WBC (Bld) Monocytes/100 le ukocytes in Blood by Manual count High 2-11 [facility] Myelocytes/100 WBC Manual cn t (Bld)Ordered By: Pa Neil on 08-26-2024 Myelocytes/100 WBC (Bld) Myelocytes/100 leukocytes in Blood by Manual count High 0-0 [facility] Prealbuminon 08-26-2024 Prealbumin [Mass/Vol] 15.9 mg/dL Low 17.0-34.0 [facility] Comment on above: Result Comment: PERF ORMED BY:[facility] [place], [place] [phone] MEDICAL DIRECTORANNE OLGUIN M.D. Performed By: #### C MP, PAB, DIFF CBC ####[facility] [place] [address] [facility] Prealbumin [Mass/volume] in Serum or PlasmaOrdered By: Pa Neil on 08-26-2024 Prealbumin [Mass/Vol] Prealbumin [Mass/v olume] in Serum or Plasma Low 17.0-34.0 [facility] Protein [Mass/volume] in Ser um or PlasmaOrdered By: Pa Neil on 08-26-2024 Protein [Mass/Vol] Protein [Mass/volume ] in Serum or Plasma Low 6.4-8.9 [facility] Schistocytes [Presence] in B lood by Light microscopyOrdered By: Pa Neil on 08-26-2024 Schistocytes LM Ql (Bld) Schistocytes [Presence] in Blood by Light microscopy [facility] Segmented neutrophils/100 WB C Manual cnt (Bld)Ordered By: Pa Neil on 08-26-2024 Segmented neutrophils/100 WBC (Bld) Manual blood segmented neutrophils/100 leukocytes 50-70 [facility] Serum or plasma albumin/glob ulin mass ratioOrdered By: aP Neil on 08-26-2024 Albumin/Globulin [Mass ratio] Serum or plasma albumin/globulin mass ratio [facility] Variant lymphocytes/100 WBC Manual cnt (Bld)Ordered By: Pa Neil on 08-26-2024 Variant lymphocytes/100 WBC (Bld) Variant lymphocytes/100 leukocytes in Blood by Manual count 0-12 [facility] Alanine aminotransferase [En zymatic activity/volume] in Serum or PlasmaOrdered By: Mariajose Alfred on 08-25-2024 ALT [Catalytic activity/Vol] Alanine aminotransferase [Enzymatic activity/volume] in Serum or Plasma Low 7-52 [facility] Albumin [Mass/volume] in Ser um or Plasma by Bromocresol green (BCG) dye binding methoOrdered By: Mariajose Alfred on 08-25-2024 Albumin BCG dye [Mass/Vol] Albumin [Mass/volume] in Serum or Plasma by Bromocresol green (BCG) dye binding metho 3.5-5.7 [facility] Alkaline phosphatase [Enzyma tic activity/volume] in Serum or PlasmaOrdered By: Mariajose Alfred on 08-25-2024 ALP [Catalytic activity/Vol] Alkaline phosphatase [Enzymatic activity/volume] in Serum or Plasma High 34-104 [facility] Aspartate aminotransferase [ Enzymatic activity/volume] in Serum or PlasmaOrdered By: Mariajose Morenor on 08-25-2024 AST [Catalytic activity/Vol] Aspartate aminotransferase [Enzymatic activity/volume] in Serum or Plasma 13-39 [facility] Bilirubin.total [Mass/volume ] in Serum or PlasmaOrdered By: Mariajose Alfred on 08-25-2024 Bilirubin [Mass/Vol] Bilirubin.total [Mass/volume] in Serum or Plasma 0.3-1.0 [facility] Calcium [Mass/volume] in Ser um or PlasmaOrdered By: Mariajose Alfred on 08-25-2024 Calcium [Mass/Vol] Calcium [Mass/volume ] in Serum or Plasma High 8.6-10.3 [facility] Carbon dioxide, total [Moles /volume] in Serum or PlasmaOrdered By: Mariajose Alfred on 08-25-2024 CO2 [Moles/Vol] Carbon dioxide, tota l [Moles/volume] in Serum or Plasma 21.0-31.0 [facility] Chloride [Moles/volume] in S sonya or PlasmaOrdered By: Mariajose Alfred on 08-25-2024 Chloride [Moles/Vol] Chloride [Moles/vol ume] in Serum or Plasma 98-107 [facility] Comprehensive Metabolic Pane rm 08-25-2024 Albumin [Mass/Vol] 3.8 g/dL Normal 3.5-5.7 [facility] Comment on above: Performed By: #### C MP ####[place] [id number] [facility] Albumin/Globulin [Mass ratio] 1.6 {ratio} Normal [facility] Comment on above: Performed By: #### C MP ####[place] [id number] [facility] ALP [Catalytic activity/Vol] 114 U/L High 34-104 [facility] Comment on above: Performed By: #### C MP ####[place] [id number] [facility] ALT [Catalytic activity/Vol] 6 U/L Low 7-52 [facility] Comment on above: Performed By: #### C MP ####[address] Anion gap [Moles/Vol] 9.6 mmol/L Normal 6.0-15.0 [facility] Comment on above: Performed By: #### C MP ####[address] AST [Catalytic activity/Vol] 16 U/L Normal 13-39 [facility] Comment on above: Performed By: #### C MP ####[address] Bilirubin [Mass/Vol] 0.4 mg/dL Normal 0.3-1.0 [facility] Comment on above: Performed By: #### C MP ####[place] [id number] [facility] Calcium [Mass/Vol] 10.7 mg/dL High 8.6-10.3 [facility] Comment on above: Performed By: #### C MP ####[place] [id number] [facility] Chloride [Moles/Vol] 107 mmol/L Normal 98-107 [facility] Comment on above: Performed By: #### C MP ####[place] [id number] [facility] CO2 [Moles/Vol] 28.8 mmol/L Normal 21.0-31.0 [facility] Comment on above: Performed By: #### C MP ####[address] Creatinine [Mass/Vol] 0.92 mg/dL Normal 0.60-1.20 [facility] Comment on above: Performed By: #### C MP ####[address] Creatinine Clr Calc Pharmacy 39.22 Normal [facility] Comment on above: Result Comment: PERF ORMED BY:[address] [place], [place] [phone] MEDICAL DIRECTORANNE OLGUIN M.D. Performed By: #### C MP ####[address] GFR/1.73 sq M.predicted MDRD (S/P/Bld) [Vol rate/Area] mL/min/{1.73_m2} Normal [facility] Comment on above: Performed By: #### C MP ####[address] Globulin (S) [Mass/Vol] 2.4 g/dL Normal T [facility] Comment on above: Performed By: #### C MP ####[address] Glucose [Mass/Vol] 92 mg/dL Normal 70-100 [facility] Comment on above: Result Comment: [facility] Glucose Reference Range is dependent on time and content of last meal. Glucose of more than 200 mg/dL in a nonstressed, ambulatory subject supports the diagnosis of Diabetes Mellitus. ADA recommended reference range Performed By: #### C MP ####[address] Potassium [Moles/Vol] 3.4 mmol/L Low 3.5-5.1 [facility] Comment on above: Performed By: #### C MP ####[place] [address] [address] Protein [Mass/Vol] 6.2 g/dL Low 6.4-8.9 [facility] Comment on above: Performed By: #### C MP ####[place] [id number] [address] Sodium [Moles/Vol] 142 mmol/L Normal 136-145 [facility] Comment on above: Performed By: #### C MP ####[address] Urea nitrogen [Mass/Vol] 21 mg/dL Normal 7-25 [facility] Comment on above: Performed By: #### C MP ####[address] Creatinine [Mass/volume] in Serum or PlasmaOrdered By: Mariajose Alfred on 08-25-2024 Creatinine [Mass/Vol] Creatinine [Mass/v olume] in Serum or Plasma 0.60-1.20 [facility] Globulin Calc (S) [Mass/Vol] Ordered By: Mariajose Alfred on 08-25-2024 Globulin (S) [Mass/Vol] Serum globulin measurement by calculation (mass/volume) [facility] Glucose [Mass/volume] in Ser um or PlasmaOrdered By: Mariajose Alfred on 08-25-2024 Glucose [Mass/Vol] Glucose [Mass/volume ] in Serum or Plasma 70-100 [facility] Comment on above: ADA recommended refe rence rangeRandom Glucose Reference Range is dependent on time and content of last meal. Glucose of more than 200 mg/dL in a nonstressed, ambulatory subject supports the diagnosis of Diabetes Mellitus. No Panel InformationOrdered By: Mariajose Alfred on 08-25-2024 Estimated GFR (CKD-EPI) > 60.0 mL/Min [facility] Creatinine Clearance (Chem 39.22 [facility] Potassium [Moles/volume] in Serum or PlasmaOrdered By: Mariajose Alfred on 08-25-2024 Potassium [Moles/Vol] Potassium [Moles/v olume] in Serum or Plasma Low 3.5-5.1 [facility] Protein [Mass/volume] in Ser um or PlasmaOrdered By: Obbraxtondah Daromar on 08-25-2024 Protein [Mass/Vol] Protein [Mass/volume ] in Serum or Plasma Low 6.4-8.9 [facility] Serum or plasma albumin/glob ulin mass ratioOrdered By: Obbraxtondah Daromar on 08-25-2024 Albumin/Globulin [Mass ratio] Serum or plasma albumin/globulin mass ratio [facility] Serum or plasma anion gap de terminationOrdered By: Obbraxtondah Daromar on 08-25-2024 Anion gap [Moles/Vol] Serum or plasma an ion gap determination 6.0-15.0 [facility] Sodium [Moles/volume] in Ser um or PlasmaOrdered By: Obbraxtondah Daromar on 08-25-2024 Sodium [Moles/Vol] Sodium [Moles/volume ] in Serum or Plasma 136-145 [facility] Urea nitrogen [Mass/volume] in Serum or PlasmaOrdered By: Obaydah Daromar on 08-25-2024 Urea nitrogen [Mass/Vol] Urea nitrogen [Mass/volume] in Serum or Plasma 7-25 [facility] Appearance of UrineOrdered B y: Obbraxtondah Daromar on 08-24-2024 Appearance (U) Urine appearance Abnormal Clear [facility] Bacteria [Presence] in Urine by AutomatedOrdered By: Obbraxtondazoltan Wagneromar on 08-24-2024 Bacteria Auto Ql (U) Bacteria [Presence] in Urine by Automated None Seen [facility] Basic Metabolic Panelon 08-09 Anion gap [Moles/Vol] 9.6 mmol/L Normal 6.0-15.0 [facility] Comment on above: Performed By: #### B RONA HALE ####[facility] [id number] Calcium [Mass/Vol] 10.4 mg/dL High 8.6-10.3 [facility] Comment on above: Performed By: #### B RONA HALE ####[facility] [id number] [address] Chloride [Moles/Vol] 107 mmol/L Normal 98-107 [facility] Comment on above: Performed By: #### B GEOFFREY, CBCNO ####[place] [id number] [facility] CO2 [Moles/Vol] 28.9 mmol/L Normal 21.0-31.0 [facility] Comment on above: Performed By: #### B GEOFFREY, CBCNO ####[address] Creatinine [Mass/Vol] 1.30 mg/dL High 0.60-1.20 [facility] Comment on above: Performed By: #### B GEOFFREY, CBCNO ####[address] Creatinine Clr Calc Pharmacy 27.42 Normal [facility] Comment on above: Result Comment: PERF ORMED BY:[address] [place], [place] [id number] MEDICAL DIRECTORANNE OLGUIN M.D. Performed By: #### B GEOFFREY, CBCNO ####[address] Estimated GFR 42.090 mL/Min Normal [facility] Comment on above: Performed By: #### B GEOFFREY, CBCNO ####[address] Glucose [Mass/Vol] 95 mg/dL Normal 70-100 [facility] Comment on above: Result Comment: [place] Glucose Reference Range is dependent on time and content of last meal. Glucose of more than 200 mg/dL in a nonstressed, ambulatory subject supports the diagnosis of Diabetes Mellitus. ADA recommended reference range Performed By: #### B GEOFFREY, CBCNO ####[address] Potassium [Moles/Vol] 3.5 mmol/L Normal 3.5-5.1 [facility] Comment on above: Performed By: #### B GEOFFREY, CBCNO ####[place] [address] Sodium [Moles/Vol] 142 mmol/L Normal 136-145 [facility] Comment on above: Performed By: #### B GEOFFREY, CBCNO ####[address] Urea nitrogen [Mass/Vol] 28 mg/dL High 7-25 [facility] Comment on above: Performed By: #### B GEOFFREY, CBCNO ####[address] Bilirubin Test strip Ql (U)O rdered By: Mariajose Alfred on 08-24-2024 Bilirubin Ql (U) Bilirubin.total [Presence] in Urine by Test strip Negative [facility] Color Auto (U)Ordered By: Lance Alfred on 08-24-2024 Color (U) Color of Urine by Auto Yellow [facility] Dipstick and Microscopicon 0 08-24-2024 Appearance (U) Cloudy Critically abnormal Clear [facility] Comment on above: Order Comment: Name Collection Type:: Clean-Voided Midstream Performed By: #### A DDONUAPLUS ####[address] Bacteria,Urine None Seen Normal None Seen [facility] Comment on above: Order Comment: Name Collection Type:: Clean-Voided Midstream Performed By: #### A DDONUAPLUS ####[address] Bilirubin,Urine Negative Normal Negative [facility] Comment on above: Order Comment: Name Collection Type:: Clean-Voided Midstream Performed By: #### A DDONUAPLUS ####[place] [id number] [facility] Color (U) Light-Yellow Normal Yellow [facility] Comment on above: Order Comment: Name Collection Type:: Clean-Voided Midstream Performed By: #### A DDONUAPLUS ####[place] [id number] [facility] Glucose Ql (U) Normal Normal Normal [facility] Comment on above: Order Comment: Name Collection Type:: Clean-Voided Midstream Performed By: #### A DDONUAPLUS ####[address] [address] [facility] Hyaline Casts,Urine 0-8 Normal 0-8 [facility] Comment on above: Order Comment: Name Collection Type:: Clean-Voided Midstream Performed By: #### A DDONUAPLUS ####[address] [address] [facility] Ketones Ql (U) Trace High Negative [facility] Comment on above: Order Comment: Name Collection Type:: Clean-Voided Midstream Performed By: #### A DDONUAPLUS ####[address] [address] [facility] Leukocyte esterase Test strip Ql (U) Negative Normal Negative [facility] Comment on above: Order Comment: Name Collection Type:: Clean-Voided Midstream Performed By: #### A DDONUAPLUS ####[address] [address] [facility] Mucus,Urine Rare Normal [facility] Comment on above: Order Comment: Name Collection Type:: Clean-Voided Midstream Result Comment: PERF ORMED BY:[address] [place], [place] [phone] MEDICAL TYESHA OLGUIN M.D. Performed By: #### A DDONUAPLUS ####[address] [address] [facility] Nitrite,Urine Negative Normal Negative [facility] Comment on above: Order Comment: Name Collection Type:: Clean-Voided Midstream Performed By: #### A DDONUAPLUS ####[place] [id number] [facility] Occult Blood,Urine 2+ High Negative [facility] Comment on above: Order Comment: Name Collection Type:: Clean-Voided Midstream Result Comment: PERF ORMED BY:[place] [address] [address] [place], [place] [phone] MEDICAL DIRECTORMOTRINO M EL-FAKHARANY M.D. Performed By: #### A DDONUAPLUS ####[place] [id number] [facility] pH (U) 6.5 [pH] Normal 5.0-9.0 [facility] Comment on above: Order Comment: Name Collection Type:: Clean-Voided Midstream Performed By: #### A DDONUAPLUS ####[place] [id number] [facility] Protein (U) [Mass/Vol] 30 mg/dL High Negative [facility] Comment on above: Order Comment: Name Collection Type:: Clean-Voided Midstream Performed By: #### A DDONUAPLUS ####[place] [id number] [facility] RBC,Urine Innumerable High 0-4 [facility] Comment on above: Order Comment: Name Collection Type:: Clean-Voided Midstream Performed By: #### A DDONUAPLUS ####[place] [id number] [facility] Specificy [place],Urine 1.018 Normal 1.00 1-1.03 0 [facility] Comment on above: Order Comment: Name Collection Type:: Clean-Voided Midstream Performed By: #### A DDONUAPLUS ####[address] [address] [facility] Urobilinogen,Urine Normal Normal Normal [facility] Comment on above: Order Comment: Name Collection Type:: Clean-Voided Midstream Performed By: #### A DDONUAPLUS ####[address] [address] [facility] WBC,Urine 5-9 High 0-4 [facility] Comment on above: Order Comment: Name Collection Type:: Clean-Voided Midstream Performed By: #### A DDONUAPLUS ####[address] [address] [facility] Epithelial cells.squamous [# /area] in Urine sediment by Automated countOrdered By: Mariajose Alfred on 08-24-2024 Epithelial cells.squamous Auto (Urine sed) [#/Area] Epithelial cells.squamous [#/area] in Urine sediment by Automated count [facility] Erythrocyte distribution wid th Auto (RBC) [Ratio]Ordered By: Mariajose Alfred on 08-24-2024 Erythrocyte distribution width (RBC) [Ratio] Erythrocyte distribution width [Ratio] by Automated count 11.9-15.3 [facility] Erythrocytes [#/area] in Uri ne sediment by Automated countOrdered By: Mariajose Alfred on 08-24-2024 RBC Auto (Urine sed) [#/Area] Erythrocytes [#/area] in Urine sediment by Automated count High 0-4 [facility] Glucose [Mass/volume] in Uri ne by Test stripOrdered By: Mariajose Alfred on 08-24-2024 Glucose Test strip (U) [Mass/Vol] Glucose [Mass/volume] in Urine by Test strip Normal [facility] Hematocrit Auto (Bld) [Volum e fraction]Ordered By: Mariajose Alfred on 08-24-2024 Hematocrit (Bld) [Volume fraction] Hematocrit [Volume Fraction] of Blood by Automated count 34.0-46.4 [facility] Hemoglobin Test strip Ql (U) Ordered By: Mariajose Moreno on 08-24-2024 Hemoglobin Ql (U) Hemoglobin [Presence ] in Urine by Test strip High Negative [facility] Hemoglobin [Mass/volume] in BloodOrdered By: Mariajose Alfred on 08-24-2024 Hemoglobin (Bld) [Mass/Vol] Hemoglobin [Mass/volume] in Blood 11.8-15.4 [facility] Hemogram CBC Without Diffon 08-24-2024 Erythrocyte distribution width (RBC) [Ratio] 14.7 % Normal 11.9-15.3 [facility] Comment on above: Performed By: #### B GEOFFREY CBCNO ####[facility] [id number] [place] [address] [facility] Hematocrit (Bld) [Volume fraction] 39.6 % Normal 34.0-46.4 [facility] Comment on above: Performed By: #### B MP, CBCNO ####[address] Hemoglobin (Bld) [Mass/Vol] 13.6 g/dL Normal 11.8-15.4 [facility] Comment on above: Performed By: #### B MP, CBCNO ####[place] [id number] [facility] MCH (RBC) [Entitic mass] 31.3 pg Normal 24.7-34.3 [facility] Comment on above: Performed By: #### B MP, CBCNO ####[place] [id number] [facility] MCV (RBC) [Entitic vol] 91.6 fL Normal 80-100 [facility] Comment on above: Performed By: #### B MP, CBCNO ####[address] Mean Corpuscular HGB Conc 34.2 g/dL Normal 32.0-35.0 [facility] Comment on above: Performed By: #### B MP, CBCNO ####[place] [id number] [facility] Platelet mean volume (Bld) [Entitic vol] 9.7 fL Normal 6.3-10.7 [facility] Comment on above: Result Comment: PERF ORMED BY:[address] [place], [place] [phone] MEDICAL DIRECTORANNE OLGUIN M.D. Performed By: #### B MP, CBCNO ####[address] Platelets (Bld) [#/Vol] 286 10*3/uL Normal 150-450 [facility] Comment on above: Performed By: #### B MP, CBCNO ####[place] [id number] [facility] RBC (Bld) [#/Vol] 4.33 10*6/uL Normal 3.60-5.00 [facility] Comment on above: Performed By: #### B MP, CBCNO ####[facility] [id number] [place] [id number] [facility] WBC (Bld) [#/Vol] 9.9 10*3/uL Normal 3.8-11.6 [facility] Comment on above: Performed By: #### B MP, CBCNO ####[facility] [id number] Hyaline casts [#/area] in Ur ine sediment by Automated countOrdered By: Mariajose Alfred on 08-24-2024 Hyaline casts Auto (Urine sed) [#/Area] Hyaline casts [#/area] in Urine sediment by Automated count 0-8 [facility] Ketones Test strip Ql (U)Ord ered By: Mariajose Alfred on 08-24-2024 Ketones Ql (U) Ketones [Presence] i n Urine by Test strip High Negative [facility] Leukocyte esterase [Presence ] in Urine by Test stripOrdered By: Mariajose Alfred on 08-24-2024 Leukocyte esterase Test strip Ql (U) Leukocyte esterase [Presence] in Urine by Test strip Negative [facility] Leukocytes [#/area] in Urine sediment by Automated countOrdered By: Mariajose Alfred on 08-24-2024 WBC Auto (Urine sed) [#/Area] Leukocytes [#/area] in Urine sediment by Automated count High 0-4 [facility] Leukocytes [#/volume] correc ej for nucleated erythrocytes in Blood by Automated counOrdered By: Mariajose Alfred on 08-24-2024 WBC corrected for nucl RBC Auto (Bld) [#/Vol] Leukocytes [#/volume] corrected for nucleated erythrocytes in Blood by Automated coun 3.8-11.6 [facility] MCH Auto (RBC) [Entitic mass ]Ordered By: Mariajose Alfred on 08-24-2024 MCH (RBC) [Entitic mass] MCH [Entitic mass] by Automated count 24.7-34.3 [facility] MCHC Auto (RBC) [Mass/Vol]Or dered By: Mariajose Alfred on 08-24-2024 MCHC (RBC) [Mass/Vol] MCHC [Mass/volume] by Automated count 32.0-35.0 [facility] MCV Auto (RBC) [Entitic vol] Ordered By: Mariajose Wagneromar on 08-24-2024 MCV (RBC) [Entitic vol] MCV [Entitic vol ume] by Automated count 80-100 [facility] Mucus [Presence] in Urine by AutomatedOrdered By: Mariajose Wagneromar on 08-24-2024 Mucus Auto Ql (U) Mucus [Presence] in Urine by Automated [facility] Nitrite Test strip Ql (U)Ord ered By: Mariajose Wagneromar on 08-24-2024 Nitrite Ql (U) Nitrite [Presence] i n Urine by Test strip Negative [facility] Platelet mean volume Auto (B ld) [Entitic vol]Ordered By: Mariajose Wagneromar on 08-24-2024 Platelet mean volume (Bld) [Entitic vol] Platelet mean volume [Entitic volume] in Blood by Automated count 6.3-10.7 [facility] Platelets Auto (Bld) [#/Vol] Ordered By: Mariajose Alfred on 08-24-2024 Platelets (Bld) [#/Vol] Platelets [#/vol ume] in Blood by Automated count 150-450 [facility] Protein Test strip (U) [Mass /Vol]Ordered By: Mariajose Alfred on 08-24-2024 Protein (U) [Mass/Vol] Protein [Mass/vol ume] in Urine by Test strip High Negative [facility] RBC Auto (Bld) [#/Vol]Ordere d By: Mariajose Wagneromar on 08-24-2024 RBC (Bld) [#/Vol] Erythrocytes [#/volu me] in Blood by Automated count 3.60-5.00 [facility] Specific gravity Test strip (U) [Rel density]Ordered By: Mariajose Wagneromar on 08-24-2024 Specific gravity (U) [Rel density] Specific gravity of Urine by Test strip 1.001-1.03 0 [facility] Urobilinogen Test strip (U) [Mass/Vol]Ordered By: Mariajose Alfred on 08-24-2024 Urobilinogen (U) [Mass/Vol] Urobilinogen [Mass/volume] in Urine by Test strip Normal [facility] pH Test strip (U)Ordered By: Mariajose Alfred on 08-24-2024 pH (U) pH of Urine by Test strip 5.0-9.0 [facility] Comprehensive Metabolic Pane rm 08-23-2024 Albumin [Mass/Vol] 4.4 g/dL Normal 3.5-5.7 [facility] Comment on above: Performed By: #### C MP, MG, TSH3, [id number] ####[address] Albumin/Globulin [Mass ratio] 1.8 {ratio} Normal [facility] Comment on above: Performed By: #### C MP, MG, TSH3, [id number] ####[address] ALP [Catalytic activity/Vol] 125 U/L High 34-104 [facility] Comment on above: Performed By: #### C MP, MG, TSH3, [id number] ####[address] ALT [Catalytic activity/Vol] 4 U/L Low 7-52 [facility] Comment on above: Performed By: #### C MP, MG, TSH3, [id number] ####[place] [id number] [facility] Anion gap [Moles/Vol] 15.4 mmol/L High 6.0-15.0 [facility] Comment on above: Performed By: #### C MP, MG, TSH3, [id number] ####[address] AST [Catalytic activity/Vol] 26 U/L Normal 13-39 [facility] Comment on above: Performed By: #### C MP, MG, TSH3, [id number] ####[place] [address] [place] Bilirubin [Mass/Vol] 0.7 mg/dL Normal 0.3-1.0 [facility] Comment on above: Performed By: #### C MP, MG, TSH3, [id number] ####[address] Calcium [Mass/Vol] 9.9 mg/dL Normal 8.6-10.3 [facility] Comment on above: Performed By: #### C MP, MG, TSH3, [id number] ####[address] Chloride [Moles/Vol] 107 mmol/L Normal 98-107 [facility] Comment on above: Performed By: #### C MP, MG, TSH3, [id number] ####[address] CO2 [Moles/Vol] 25.0 mmol/L Normal 21.0-31.0 [facility] Comment on above: Performed By: #### C MP, MG, TSH3, [id number] ####[address] Creatinine [Mass/Vol] 0.95 mg/dL Normal 0.60-1.20 [facility] Comment on above: Performed By: #### C MP, MG, TSH3, [id number] ####[address] Creatinine Clr Calc Pharmacy 36.60 Normal [facility] Comment on above: Performed By: #### C MP, MG, TSH3, [id number] ####[address] GFR/1.73 sq M.predicted MDRD (S/P/Bld) [Vol rate/Area] mL/min/{1.73_m2} Normal [facility] Comment on above: Performed By: #### C MP, MG, TSH3, [id number] ####[address] Globulin (S) [Mass/Vol] 2.4 g/dL Normal [facility] Comment on above: Performed By: #### C MP, MG, TSH3, [id number] ####[address] Glucose [Mass/Vol] 87 mg/dL Normal 70-100 [facility] Comment on above: Result Comment: [facility] Glucose Reference Range is dependent on time and content of last meal. Glucose of more than 200 mg/dL in a nonstressed, ambulatory subject supports the diagnosis of Diabetes Mellitus. ADA recommended reference range Performed By: #### C MP, MG, TSH3, [id number] ####[address] Potassium [Moles/Vol] 3.4 mmol/L Low 3.5-5.1 [facility] Comment on above: Performed By: #### C MP, MG, TSH3, [id number] ####[address] Protein [Mass/Vol] 6.8 g/dL Normal 6.4-8.9 [facility] Comment on above: Performed By: #### C MP, MG, TSH3, [id number] ####[address] Sodium [Moles/Vol] 144 mmol/L Normal 136-145 [facility] Comment on above: Performed By: #### C MP, MG, TSH3, [id number] ####[address] Urea nitrogen [Mass/Vol] 20 mg/dL Normal 7-25 [facility] Comment on above: Performed By: #### C MP, MG, TSH3, [id number] ####[address] Folate [Mass/volume] in Seru m or PlasmaOrdered By: Mariajose Alfred on 08-23-2024 Folate [Mass/Vol] Folate [Mass/volume] in Serum or Plasma >5.9 [facility] Comment on above: Folate reference ran ge: >5.9 ng/mlThe WHO technical consultation on folate and vitamin [id number] has determined that folate concentrations lessthan 4 ng/ml are considered deficient. Magnesiumon 08-23-2024 Magnesium [Mass/Vol] 1.8 mg/dL Low 1.9-2.7 [facility] Comment on above: Performed By: #### C MP, MG, TSH3, [id number] ####[address] [address] [facility] Magnesium [Mass/volume] in S sonya or PlasmaOrdered By: Mariajose Alfred on 08-23-2024 Magnesium [Mass/Vol] Magnesium [Mass/vol ume] in Serum or Plasma Low 1.9-2.7 [facility] Thyroid Stimulating Hormoneo n 08-23-2024 TSH Qn 0.86 m[IU]/L Normal 0.45-5.33 [facility] Comment on above: Result Comment: PERF ORMED BY:[address] [place], [place] [id number] MEDICAL DIRECTORANNE OLGUIN M.D. Performed By: #### C MP, MG, TSH3, [id number] ####[address] [address] [facility] Thyrotropin [Units/volume] i n Serum or PlasmaOrdered By: Mariajose Alfred on 08-23-2024 TSH Qn Thyrotropin [Units/volume] in Serum or Plasma 0.45-5.33 [facility] Vit. B12/Folate Profileon Cobalamin (Vitamin B12) [Mass/Vol] 590 pg/mL Normal 180-914 [facility] Comment on above: Performed By: #### C MP, MG, TSH3, [id number] ####[address] [id number] [facility] Folate 37.0 ng/mL Normal >5.9 [facility] Comment on above: Result Comment: Mirella te reference range: >5.9 ng/ml The WHO technical consultation on folate and vitamin b12 deficiencies has determined that folate concentrations less than 4 ng/ml are considered deficient. Performed By: #### C MP, MG, TSH3, [id number] ####[facility] [place] [address] [facility] Vitamin B12 ser/plasOrdered By: Mariajose Alfred on 08-23-2024 Cobalamin (Vitamin B12) [Mass/Vol] Vitamin B12 ser/plas 180-914 [facility] Basic Metabolic Panelon 08-09 Anion gap [Moles/Vol] 14.5 mmol/L Normal 6.0-15.0 [facility] Comment on above: Order Comment: need 2 people Performed By: #### C RUSLAN, BMP ####[place] [address] [place] [id number] [facility] Calcium [Mass/Vol] 11.1 mg/dL High 8.6-10.3 [facility] Comment on above: Order Comment: need 2 people Performed By: #### C RUSLAN, BMP ####[place] [address] [place] [id number] [facility] Chloride [Moles/Vol] 107 mmol/L Normal 98-107 [facility] Comment on above: Order Comment: need 2 people Performed By: #### C RUSLAN, BMP ####[place] [id number] [facility] CO2 [Moles/Vol] 24.0 mmol/L Normal 21.0-31.0 [facility] Comment on above: Order Comment: need 2 people Performed By: #### C RUSLAN, BMP ####[address] [address] [facility] Creatinine [Mass/Vol] 1.17 mg/dL Normal 0.60-1.20 [facility] Comment on above: Order Comment: need 2 people Performed By: #### C BCDEUCE, BMP ####[place] [id number] [place] Creatinine Clr Calc Pharmacy 33.53 Normal [facility] Comment on above: Order Comment: need 2 people Result Comment: PERF ORMED BY:[address] [place], [place] [phone] MEDICAL DIRECTORANNE OLGUIN M.D. Performed By: #### C RUSLAN, BMP ####[place] [address] [place] [address] [facility] Estimated GFR 47.762 mL/Min Normal [facility] Comment on above: Order Comment: need 2 people Performed By: #### C RUSLAN, BMP ####[place] [address] [place] [address] [facility] Glucose [Mass/Vol] 72 mg/dL Normal 70-100 [facility] Comment on above: Order Comment: need 2 people Result Comment: [place] Glucose Reference Range is dependent on time and content of last meal. Glucose of more than 200 mg/dL in a nonstressed, ambulatory subject supports the diagnosis of Diabetes Mellitus. ADA recommended reference range Performed By: #### C RUSLAN, BMP ####[address] [address] [facility] Potassium [Moles/Vol] 3.5 mmol/L Normal 3.5-5.1 [facility] Comment on above: Order Comment: need 2 people Performed By: #### C RUSLAN, BMP ####[address] [address] [facility] Sodium [Moles/Vol] 142 mmol/L Normal 136-145 [facility] Comment on above: Order Comment: need 2 people Performed By: #### C RUSLAN, BMP ####[address] [address] [facility] Urea nitrogen [Mass/Vol] 16 mg/dL Normal 7-25 [facility] Comment on above: Order Comment: need 2 people Performed By: #### C RUSLAN, BMP ####[address] [address] [facility] Hemogram CBC Without Diffon 08-22-2024 Erythrocyte distribution width (RBC) [Ratio] 14.5 % Normal 11.9-15.3 [facility] Comment on above: Order Comment: need 2 people Performed By: #### C BCNO, BMP ####[address] Hematocrit (Bld) [Volume fraction] 38.9 % Normal 34.0-46.4 [facility] Comment on above: Order Comment: need 2 people Performed By: #### C BCNO, BMP ####[address] Hemoglobin (Bld) [Mass/Vol] 13.3 g/dL Normal 11.8-15.4 [facility] Comment on above: Order Comment: need 2 people Performed By: #### C BCDEUCE, BMP ####[address] MCH (RBC) [Entitic mass] 31.3 pg Normal 24.7-34.3 [facility] Comment on above: Order Comment: need 2 people Performed By: #### C RUSLAN, BMP ####[address] MCV (RBC) [Entitic vol] 91.8 fL Normal 80-100 [facility] Comment on above: Order Comment: need 2 people Performed By: #### C RUSLAN, BMP ####[address] Mean Corpuscular HGB Conc 34.1 g/dL Normal 32.0-35.0 [facility] Comment on above: Order Comment: need 2 people Performed By: #### C BCNO, BMP ####[address] Platelet mean volume (Bld) [Entitic vol] 9.5 fL Normal 6.3-10.7 [facility] Comment on above: Order Comment: need 2 people Result Comment: PERF ORMED BY:[address] [place], [place] [phone] MEDICAL DIRECTORANNE OLGUIN M.D. Performed By: #### C RUSLAN, BMP ####[place] [id number] [facility] Platelets (Bld) [#/Vol] 319 10*3/uL Normal 150-450 [facility] Comment on above: Order Comment: need 2 people Performed By: #### C SARIAHNO, BMP ####[place] [address] [place] [id number] [facility] RBC (Bld) [#/Vol] 4.24 10*6/uL Normal 3.60-5.00 [facility] Comment on above: Order Comment: need 2 people Performed By: #### C BCNO, BMP ####[address] [address] [facility] WBC (Bld) [#/Vol] 9.7 10*3/uL Normal 3.8-11.6 [facility] Comment on above: Order Comment: need 2 people Performed By: #### C RUSLAN, BMP ####[address] Parathyrin.intact [Mass/volu me] in Serum or PlasmaOrdered By: Mariajose Alfred on 08-22-2024 Parathyrin.intact [Mass/Vol] Parathyrin.intact [Mass/volume] in Serum or Plasma [facility] Parathyroid Hormone Intacton 08-22-2024 Parathyroid Hormone Intact 56.2 pg/mL Normal [facility] Comment on above: Order Comment: Comme nt add Result Comment: PERF ORMED BY:[place] [address] [place], [place] [phone] MEDICAL DIRECTORANNE OLGUIN M.D. Performed By: #### P TH ####[place] [id number] [facility] Acanthocytes [Presence] in B lood by Light microscopyOrdered By: Ebony Scott on 08-21-2024 Acanthocytes LM Ql (Bld) Acanthocytes [Presence] in Blood by Light microscopy [facility] Basic Metabolic Panelon 08-09 Anion gap [Moles/Vol] 10.9 mmol/L Normal 6.0-15.0 [facility] Comment on above: Performed By: #### S CAN CBC, MG, BMP ####[address] Calcium [Mass/Vol] 10.6 mg/dL High 8.6-10.3 [facility] Comment on above: Performed By: #### S CAN CBC, MG, BMP ####[address] Chloride [Moles/Vol] 108 mmol/L High 98-107 [facility] Comment on above: Performed By: #### S CAN CBC, MG, BMP ####[address] CO2 [Moles/Vol] 23.8 mmol/L Normal 21.0-31.0 [facility] Comment on above: Performed By: #### S CAN CBC, MG, BMP ####[address] Creatinine [Mass/Vol] 1.15 mg/dL Normal 0.60-1.20 [facility] Comment on above: Performed By: #### S CAN CBC, MG, BMP ####[address] Creatinine Clr Calc Pharmacy 33.54 Normal [facility] Comment on above: Performed By: #### S CAN CBC, MG, BMP ####[address] Estimated GFR 48.760 mL/Min Normal [facility] Comment on above: Performed By: #### S CAN CBC, MG, BMP ####[address] Glucose [Mass/Vol] 89 mg/dL Normal 70-100 [facility] Comment on above: Result Comment: [place] Glucose Reference Range is dependent on time and content of last meal. Glucose of more than 200 mg/dL in a nonstressed, ambulatory subject supports the diagnosis of Diabetes Mellitus. ADA recommended reference range Performed By: #### S CAN CBC, MG, BMP ####[address] [place] [address] [facility] Potassium [Moles/Vol] 3.7 mmol/L Normal 3.5-5.1 [facility] Comment on above: Performed By: #### S CAN CBC, MG, BMP ####[place] [address] [place] [id number] [facility] Sodium [Moles/Vol] 139 mmol/L Normal 136-145 [facility] Comment on above: Performed By: #### S CAN CBC, MG, BMP ####[place] [address] Urea nitrogen [Mass/Vol] 19 mg/dL Normal 7-25 [facility] Comment on above: Performed By: #### S CAN CBC, MG, BMP ####[place] [address] [place] [id number] [facility] Basophils Auto (Bld) [#/Vol] Ordered By: Ebony Scott on 08-21-2024 Basophils (Bld) [#/Vol] Automated basophil count 0.0-0.2 [facility] Basophils/100 WBC Auto (Bld) Ordered By: Ebony Scott on 08-21-2024 Basophils/100 WBC (Bld) Automated basophil % . [facility] Blood Cultureon 08-21-2024 Bacteria identified Cx Nom (Bld) NO GROWTH 5 DAYS PERFORMED BY: [facility] [address] [place] [address] PATHOLOGIST [employer] MA[employer]GER ANNE OLGUIN M.D. Normal [facility] Comment on above: Performed By: #### C UBLD ####[place] [address] [place] [id number] [facility] [place] cells [Presence] in Blo od by Light microscopyOrdered By: Ebony Scott on 08-21-2024 [place]rera cells LM Ql (Bld) [place] cells [Prese nce] in Blood by Light microscopy [facility] Eosinophils Auto (Bld) [#/Vo l]Ordered By: Ebony Scott on 08-21-2024 Eosinophils (Bld) [#/Vol] Automated eosinophil count 0.0-0.45 [facility] Eosinophils/100 WBC Auto (Bl d)Ordered By: Ebony Scott on 08-21-2024 Eosinophils/100 WBC (Bld) Automated eosinophil % . [facility] Erythrocyte morphology findi ng [Identifier] in BloodOrdered By: Ebony Scott on 08-21-2024 RBC morphology finding Nom (Bld) RBC morphology [facility] Laboratory - Microbiology an d Antimicrobial susceptibilityOrdered By: Damaso Charlton on 08-21-2024 Bacteria identified Cx Nom (Bld) NO GROWTH 5 DAYS [facility] Lymphocytes Auto (Bld) [#/Vo l]Ordered By: Ebony Scott on 08-21-2024 Lymphocytes (Bld) [#/Vol] Lymphocytes [#/volume] in Blood by Automated count 1.00-4.8 [facility] Lymphocytes/100 WBC Auto (Bl d)Ordered By: Ebony Scott on 08-21-2024 Lymphocytes/100 WBC (Bld) Lymphocytes/100 leukocytes in Blood by Automated count . [facility] Magnesiumon 08-21-2024 Magnesium [Mass/Vol] 1.7 mg/dL Low 1.9-2.7 [facility] Comment on above: Result Comment: PERF ORMED BY:[facility] [place], [place] [phone] MEDICAL DIRECTORANNE OLGUIN M.D. Performed By: #### S CAN CBC, MG, BMP ####[facility] [place] [address] [facility] Monocytes Auto (Bld) [#/Vol] Ordered By: Ebony Scott on 08-21-2024 Monocytes (Bld) [#/Vol] Automated blood monocyte count High 0.0-0.8 [facility] Monocytes/100 WBC Auto (Bld) Ordered By: Ebony Scott on 08-21-2024 Monocytes/100 WBC (Bld) Automated monocyte % . [facility] Neutrophils Auto (Bld) [#/Vo l]Ordered By: Ebony Scott on 08-21-2024 Neutrophils (Bld) [#/Vol] Neutrophils [#/volume] in Blood by Automated count 1.8-7.7 [facility] Neutrophils/100 WBC Auto (Bl d)Ordered By: Ebony Scott on 08-21-2024 Neutrophils/100 WBC (Bld) Automated neutrophil % . [facility] Nucleated erythrocytes [Pres ence] in Blood by Automated countOrdered By: Ebony Scott on 08-21-2024 Nucleated RBC Auto Ql (Bld) Nucleated erythrocytes [Presence] in Blood by Automated count 0-0.5 [facility] Platelet adequacy [Presence] in Blood by Light microscopyOrdered By: Ebony Scott on 08-21-2024 Platelets LM Ql (Bld) Platelet adequacy [Presence] in Blood by Light microscopy Normal [facility] Platelet morphology finding [Identifier] in BloodOrdered By: Ebony Scott on 08-21-2024 Platelet morphology finding Nom (Bld) Platelet morphology finding [Identifier] in Blood [facility] Platelets Large [Presence] i n Blood by Light microscopyOrdered By: Ebony Scott on 08-21-2024 Platelets Large LM Ql (Bld) Platelets Large [Presence] in Blood by Light microscopy [facility] Poikilocytosis [Presence] in Blood by Light microscopyOrdered By: Ebony Scott on 08-21-2024 Poikilocytosis LM Ql (Bld) Poikilocytosis [Presence] in Blood by Light microscopy [facility] Scan and CBCon 08-21-2024 Acanthocytes Slight Normal [facility] Comment on above: Performed By: #### S CAN CBC, MG, BMP ####[facility] [id number] Basophils (Bld) [#/Vol] 0.1 10*3/uL Normal 0.0-0.2 [facility] Comment on above: Performed By: #### S CAN CBC, MG, BMP ####[facility] [id number] [place] [id number] [facility] Basophils/100 WBC (Bld) 1.4 % Normal . T [facility] Comment on above: Performed By: #### S CAN CBC, MG, BMP ####[facility] [id number] [place] [id number] [facility] Crenated RBC Slight Normal [facility] Comment on above: Performed By: #### S CAN CBC, MG, BMP ####[address] Eosinophils (Bld) [#/Vol] 0.2 10*3/uL Normal 0.0-0.45 [facility] Comment on above: Performed By: #### S CAN CBC, MG, BMP ####[address] Eosinophils/100 WBC (Bld) 3.3 % Normal . [facility] Comment on above: Performed By: #### S CAN CBC, MG, BMP ####[address] Erythrocyte distribution width (RBC) [Ratio] 14.7 % Normal 11.9-15.3 [facility] Comment on above: Performed By: #### S CAN CBC, MG, BMP ####[address] Hematocrit (Bld) [Volume fraction] 38.8 % Normal 34.0-46.4 [facility] Comment on above: Performed By: #### S CAN CBC, MG, BMP ####[address] Hemoglobin (Bld) [Mass/Vol] 13.2 g/dL Normal 11.8-15.4 [facility] Comment on above: Performed By: #### S CAN CBC, MG, BMP ####[address] Large Platelets Slight Normal [facility] Comment on above: Result Comment: PERF ORMED BY:[address] [place], [place] [phone] MEDICAL DIRECTORANNE OLGUIN M.D. Performed By: #### S CAN CBC, MG, BMP ####[address] Lymphocytes (Bld) [#/Vol] 2.4 10*3/uL Normal 1.00-4.8 [facility] Comment on above: Performed By: #### S CAN CBC, MG, BMP ####[address] Lymphocytes/100 WBC (Bld) 34.8 % Normal . [facility] Comment on above: Performed By: #### S CAN CBC, MG, BMP ####[address] MCH (RBC) [Entitic mass] 31.7 pg Normal 24.7-34.3 [facility] Comment on above: Performed By: #### S CAN CBC, MG, BMP ####[address] MCV (RBC) [Entitic vol] 93.3 fL Normal 80-100 [facility] Comment on above: Performed By: #### S CAN CBC, MG, BMP ####[address] Mean Corpuscular HGB Conc 34.0 g/dL Normal 32.0-35.0 [facility] Comment on above: Performed By: #### S CAN CBC, MG, BMP ####[address] Monocytes (Bld) [#/Vol] 1.2 10*3/uL High 0.0-0.8 [facility] Comment on above: Performed By: #### S CAN CBC, MG, BMP ####[address] Monocytes/100 WBC (Bld) 17.1 % Normal . [facility] Comment on above: Performed By: #### S CAN CBC, MG, BMP ####[address] Neutrophils (Bld) [#/Vol] 3.0 10*3/uL Normal 1.8-7.7 [facility] Comment on above: Performed By: #### S CAN CBC, MG, BMP ####[address] Neutrophils/100 WBC (Bld) 43.4 % Normal . [facility] Comment on above: Performed By: #### S CAN CBC, MG, BMP ####[address] NRBC% 0.1 /100{WBC} Normal 0-0.5 [facility] Comment on above: Performed By: #### S CAN CBC, MG, BMP ####[place] [id number] [facility] Platelet Estimate Normal Normal Normal [facility] Comment on above: Performed By: #### S CAN CBC, MG, BMP ####[place] [id number] [facility] Platelet mean volume (Bld) [Entitic vol] 9.5 fL Normal 6.3-10.7 [facility] Comment on above: Performed By: #### S CAN CBC, MG, BMP ####[address] Platelets (Bld) [#/Vol] 307 10*3/uL Normal 150-450 [facility] Comment on above: Performed By: #### S CAN CBC, MG, BMP ####[address] Poikilocytosis Slight Normal [facility] Comment on above: Performed By: #### S CAN CBC, MG, BMP ####[address] RBC (Bld) [#/Vol] 4.16 10*6/uL Normal 3.60-5.00 [facility] Comment on above: Performed By: #### S CAN CBC, MG, BMP ####[place] [id number] [facility] WBC (Bld) [#/Vol] 6.9 10*3/uL Normal 3.8-11.6 [facility] Comment on above: Performed By: #### S CAN CBC, MG, BMP ####[place] [id number] [facility] WBC Auto (Bld) [#/Vol]Ordere d By: Ebony Scott on 08-21-2024 WBC (Bld) [#/Vol] Leukocytes [#/volume ] in Blood by Automated count 3.8-11.6 [facility] Alanine aminotransferase [En zymatic activity/volume] in Serum or PlasmaOrdered By: Damaso Charlton on 08-20-2024 ALT [Catalytic activity/Vol] Alanine aminotransferase [Enzymatic activity/volume] in Serum or Plasma Low 7-52 [facility] Albumin [Mass/volume] in Ser um or Plasma by Bromocresol green (BCG) dye binding methoOrdered By: Damaso Charlton on 08-20-2024 Albumin BCG dye [Mass/Vol] Albumin [Mass/volume] in Serum or Plasma by Bromocresol green (BCG) dye binding metho 3.5-5.7 [facility] Alkaline phosphatase [Enzyma tic activity/volume] in Serum or PlasmaOrdered By: Damaso Charlton on 08-20-2024 ALP [Catalytic activity/Vol] Alkaline phosphatase [Enzymatic activity/volume] in Serum or Plasma High 34-104 [facility] Appearance of UrineOrdered B y: Damaso Charlton on 08-20-2024 Appearance (U) Urine appearance Abnormal Clear [facility] Aspartate aminotransferase [ Enzymatic activity/volume] in Serum or PlasmaOrdered By: Damaso Charlton on 08-20-2024 AST [Catalytic activity/Vol] Aspartate aminotransferase [Enzymatic activity/volume] in Serum or Plasma 13-39 [facility] Bacteria [Presence] in Urine by AutomatedOrdered By: Damaso Charlton on 08-20-2024 Bacteria Auto Ql (U) Bacteria [Presence] in Urine by Automated None Seen [facility] Basophils Auto (Bld) [#/Vol] Ordered By: Damaso Charlton on 08-20-2024 Basophils (Bld) [#/Vol] Automated basophil count 0.0-0.2 [facility] Basophils/100 WBC Auto (Bld) Ordered By: Damaso Charlton on 08-20-2024 Basophils/100 WBC (Bld) Automated basophil % . [facility] Bilirubin Test strip Ql (U)O rdered By: Damaso Charlton on 08-20-2024 Bilirubin Ql (U) Bilirubin.total [Presence] in Urine by Test strip Negative [facility] Bilirubin.total [Mass/volume ] in Serum or PlasmaOrdered By: Damaso Charlton on 08-20-2024 Bilirubin [Mass/Vol] Bilirubin.total [Mass/volume] in Serum or Plasma 0.3-1.0 [facility] Blood Cultureon 08-20-2024 Bacteria identified Cx Nom (Bld) NO GROWTH 5 DAYS PERFORMED BY: [facility] [address] [place] [address] PATHOLOGIST [employer] MANAGER ANNE OLGUIN M.D. Normal [facility] Comment on above: Performed By: #### C UBLD ####[place] [address] [place] [address] [facility] Calcium [Mass/volume] in Ser um or PlasmaOrdered By: Damaso Charlton on 08-20-2024 Calcium [Mass/Vol] Calcium [Mass/volume ] in Serum or Plasma High 8.6-10.3 [facility] Calcium oxalate crystals [Pr esence] in Urine by Computer assisted methodOrdered By: Damaso Charlton on 08-20-2024 Calcium oxalate crystals Computer assisted Ql (U) Calcium oxalate crystals [Presence] in Urine by Computer assisted method [facility] Carbon dioxide, total [Moles /volume] in Serum or PlasmaOrdered By: Damaso Charlton on 08-20-2024 CO2 [Moles/Vol] Carbon dioxide, tota l [Moles/volume] in Serum or Plasma 21.0-31.0 [facility] Chloride [Moles/volume] in S sonya or PlasmaOrdered By: Damaso Charlton on 08-20-2024 Chloride [Moles/Vol] Chloride [Moles/vol ume] in Serum or Plasma 98-107 [facility] Color Auto (U)Ordered By: Becca Charlton on 08-20-2024 Color (U) Color of Urine by Auto Yellow Fi [facility] Comprehensive Metabolic Pane rm 08-20-2024 Albumin [Mass/Vol] 4.4 g/dL Normal 3.5-5.7 [facility] Comment on above: Performed By: #### S CAN CBC, CMP ####[facility] [place] [address] [facility] Albumin/Globulin [Mass ratio] 1.8 {ratio} Normal [facility] Comment on above: Performed By: #### S CAN CBC, CMP ####[place] [id number] [facility] ALP [Catalytic activity/Vol] 122 U/L High 34-104 [facility] Comment on above: Performed By: #### S CAN CBC, CMP ####[place] [id number] [facility] ALT [Catalytic activity/Vol] U/L Low 7-52 [facility] Comment on above: Performed By: #### S CAN CBC, CMP ####[place] [id number] [facility] Anion gap [Moles/Vol] 11.9 mmol/L Normal 6.0-15.0 [facility] Comment on above: Performed By: #### S CAN CBC, CMP ####[address] AST [Catalytic activity/Vol] 14 U/L Normal 13-39 [facility] Comment on above: Performed By: #### S CAN CBC, CMP ####[address] Bilirubin [Mass/Vol] 0.5 mg/dL Normal 0.3-1.0 [facility] [facility] Comment on above: Performed By: #### S CAN CBC, CMP ####[address] Calcium [Mass/Vol] 11.5 mg/dL High 8.6-10.3 [facility] Comment on above: Performed By: #### S CAN CBC, CMP ####[place] [id number] [facility] Chloride [Moles/Vol] 103 mmol/L Normal 98-107 [facility] Comment on above: Performed By: #### S CAN CBC, CMP ####[place] [id number] [facility] CO2 [Moles/Vol] 24.2 mmol/L Normal 21.0-31.0 [facility] Comment on above: Performed By: #### S CAN CBC, CMP ####[address] [address] [facility] Creatinine [Mass/Vol] 1.43 mg/dL High 0.60-1.20 [facility] Comment on above: Performed By: #### S CAN CBC, CMP ####[address] [address] [facility] Creatinine Clr Calc Pharmacy 25.07 Normal [facility] Comment on above: Result Comment: PERF ORMED BY:[address] [place], [place] [phone] MEDICAL DIRECTORANNE OLGUIN M.D. Performed By: #### S CAN CBC, CMP ####[address] [address] [facility] Estimated GFR 37.541 mL/Min Normal [facility] Comment on above: Performed By: #### S CAN CBC, CMP ####[place] [id number] [facility] Globulin (S) [Mass/Vol] 2.4 g/dL Normal T [facility] Comment on above: Performed By: #### S CAN CBC, CMP ####[place] [id number] [facility] Glucose [Mass/Vol] 90 mg/dL Normal 70-100 [facility] Comment on above: Result Comment: [place] Glucose Reference Range is dependent on time and content of last meal. Glucose of more than 200 mg/dL in a nonstressed, ambulatory subject supports the diagnosis of Diabetes Mellitus. ADA recommended reference range Performed By: #### S CAN CBC, CMP ####[place] [id number] [facility] Potassium [Moles/Vol] 4.1 mmol/L Normal 3.5-5.1 [facility] Comment on above: Performed By: #### S CAN CBC, CMP ####[place] [id number] [facility] Protein [Mass/Vol] 6.8 g/dL Normal 6.4-8.9 [facility] Comment on above: Performed By: #### S CAN CBC, CMP ####[address] Sodium [Moles/Vol] 135 mmol/L Low 136-145 [facility] Comment on above: Performed By: #### S CAN CBC, CMP ####[address] Urea nitrogen [Mass/Vol] 26 mg/dL High 7-25 [facility] Comment on above: Performed By: #### S CAN CBC, CMP ####[address] Creatinine [Mass/volume] in Serum or PlasmaOrdered By: Damaso Charlton on 08-20-2024 Creatinine [Mass/Vol] Creatinine [Mass/v olume] in Serum or Plasma High 0.60-1.20 [facility] Dipstick and Microscopicon 0 08-20-2024 Appearance (U) Cloudy Critically abnormal Clear [facility] Comment on above: Order Comment: Name Collection Type:: Clean-Voided Midstream Performed By: #### C UU, ADDONUAPLUS ####[address] Bacteria,Urine Rare Normal None Seen [facility] Comment on above: Order Comment: Name Collection Type:: Clean-Voided Midstream Performed By: #### C UU, ADDONUAPLUS ####[address] Bilirubin,Urine Negative Normal Negative [facility] Comment on above: Order Comment: Name Collection Type:: Clean-Voided Midstream Performed By: #### C UU, ADDONUAPLUS ####[place] [id number] [facility] Calcium Oxalate Crystals,Urine 2+ Normal [facility] Comment on above: Order Comment: Name Collection Type:: Clean-Voided Midstream Performed By: #### C UU, ADDONUAPLUS ####[address] [address] [facility] Color (U) Light-Yellow Normal Yellow [facility] Comment on above: Order Comment: Name Collection Type:: Clean-Voided Midstream Performed By: #### C UU, ADDONUAPLUS ####[address] [address] [facility] Glucose Ql (U) Normal Normal Normal [facility] Comment on above: Order Comment: Name Collection Type:: Clean-Voided Midstream Performed By: #### C UU, ADDONUAPLUS ####[address] [address] [facility] Hyaline Casts,Urine 0-8 Normal 0-8 [facility] Comment on above: Order Comment: Name Collection Type:: Clean-Voided Midstream Performed By: #### C UU, ADDONUAPLUS ####[address] [address] [facility] Ketones Ql (U) Trace High Negative [facility] Comment on above: Order Comment: Name Collection Type:: Clean-Voided Midstream Performed By: #### C UU, ADDONUAPLUS ####[address] [address] [facility] Leukocyte esterase Test strip Ql (U) 4+ High Negative [facility] Comment on above: Order Comment: Name Collection Type:: Clean-Voided Midstream Performed By: #### C UU, ADDONUAPLUS ####[address] [address] [facility] Mucus,Urine Rare Normal [facility] Comment on above: Order Comment: Name Collection Type:: Clean-Voided Midstream Result Comment: PERF ORMED BY:[address] [place], [place] [phone] MEDICAL DIRECTORANNE OLGUIN M.D. Performed By: #### C UU, ADDONUAPLUS ####[address] [address] [facility] Nitrite,Urine Negative Normal Negative [facility] Comment on above: Order Comment: Name Collection Type:: Clean-Voided Midstream Performed By: #### C UU, ADDONUAPLUS ####[address] [address] [facility] Occult Blood,Urine Negative Normal Negative [facility] Comment on above: Order Comment: Name Collection Type:: Clean-Voided Midstream Result Comment: PERF ORMED BY:[address] [place], [place] [phone] MEDICAL DIRECTORANNE OLGUIN M.D. Performed By: #### C UU, ADDONUAPLUS ####[address] [address] [facility] pH (U) 6.0 [pH] Normal 5.0-9.0 [facility] Comment on above: Order Comment: Name Collection Type:: Clean-Voided Midstream Performed By: #### C UU, ADDONUAPLUS ####[place] [id number] [facility] Protein,Urine Trace High Negative [facility] Comment on above: Order Comment: Name Collection Type:: Clean-Voided Midstream Performed By: #### C UU, ADDONUAPLUS ####[place] [id number] [facility] RBC,Urine 5-9 High 0-4 [facility] Comment on above: Order Comment: Name Collection Type:: Clean-Voided Midstream Performed By: #### C UU, ADDONUAPLUS ####[place] [id number] [facility] Specificy [place],Urine 1.014 Normal 1.00 1-1.03 0 [facility] Comment on above: Order Comment: Name Collection Type:: Clean-Voided Midstream Performed By: #### C UU, ADDONUAPLUS ####[place] [id number] [facility] Squamous Epithelial Cell,Urine 3-4 High 0-2 [facility] Comment on above: Order Comment: Name Collection Type:: Clean-Voided Midstream Performed By: #### C UU, ADDONUAPLUS ####[facility] [id number] [address] Urobilinogen,Urine Normal Normal Normal [facility] Comment on above: Order Comment: Name Collection Type:: Clean-Voided Midstream Performed By: #### C UU, ADDONUAPLUS ####[place] [id number] WBC CLUMP, Urine Few High None Seen [facility] Comment on above: Order Comment: Name Collection Type:: Clean-Voided Midstream Performed By: #### C UU, ADDONUAPLUS ####[place] [id number] WBC,Urine 50-100 High 0-4 [facility] Comment on above: Order Comment: Name Collection Type:: Clean-Voided Midstream Performed By: #### C UU, ADDONUAPLUS ####[address] Eosinophils Auto (Bld) [#/Vo l]Ordered By: Damaso Charlton on 08-20-2024 Eosinophils (Bld) [#/Vol] Automated eosinophil count 0.0-0.45 [facility] Eosinophils/100 WBC Auto (Bl d)Ordered By: Damaso Charlton on 08-20-2024 Eosinophils/100 WBC (Bld) Automated eosinophil % . [facility] Epithelial cells.squamous [# /area] in Urine sediment by Automated countOrdered By: Damaso Charlton on 08-20-2024 Epithelial cells.squamous Auto (Urine sed) [#/Area] Epithelial cells.squamous [#/area] in Urine sediment by Automated count High 0-2 [facility] Erythrocyte distribution wid th Auto (RBC) [Ratio]Ordered By: Damaso Charlton on 08-20-2024 Erythrocyte distribution width (RBC) [Ratio] Erythrocyte distribution width [Ratio] by Automated count 11.9-15.3 [facility] Erythrocyte morphology findi ng [Identifier] in BloodOrdered By: Damaso Charlton on 08-20-2024 RBC morphology finding Nom (Bld) RBC morphology [facility] Erythrocytes [#/area] in Uri ne sediment by Automated countOrdered By: Damaso Charlton on 08-20-2024 RBC Auto (Urine sed) [#/Area] Erythrocytes [#/area] in Urine sediment by Automated count High 0-4 [facility] Globulin Calc (S) [Mass/Vol] Ordered By: Damaso Charlton on 08-20-2024 Globulin (S) [Mass/Vol] Serum globulin measurement by calculation (mass/volume) [facility] Glucose [Mass/volume] in Ser um or PlasmaOrdered By: Damaso Charlton on 08-20-2024 Glucose [Mass/Vol] Glucose [Mass/volume ] in Serum or Plasma 70-100 [facility] Comment on above: ADA recommended refe rence rangeRandom Glucose Reference Range is dependent on time and content of last meal. Glucose of more than 200 mg/dL in a nonstressed, ambulatory subject supports the diagnosis of Diabetes Mellitus. Glucose [Mass/volume] in Uri ne by Test stripOrdered By: Damaso Charlton on 08-20-2024 Glucose Test strip (U) [Mass/Vol] Glucose [Mass/volume] in Urine by Test strip Normal [facility] Hematocrit Auto (Bld) [Volum e fraction]Ordered By: aDmaso Charlton 08-20-2024 Hematocrit (Bld) [Volume fraction] Hematocrit [Volume Fraction] of Blood by Automated count 34.0-46.4 [facility] Hemoglobin Test strip Ql (U) Ordered By: Damaso Charlton on 08-20-2024 Hemoglobin Ql (U) Hemoglobin [Presence ] in Urine by Test strip Negative [facility] Hemoglobin [Mass/volume] in BloodOrdered By: Damaso Charlton 08-20-2024 Hemoglobin (Bld) [Mass/Vol] Hemoglobin [Mass/volume] in Blood 11.8-15.4 [facility] Hyaline casts [#/area] in Ur ine sediment by Automated countOrdered By: Damaso Charlton 08-20-2024 Hyaline casts Auto (Urine sed) [#/Area] Hyaline casts [#/area] in Urine sediment by Automated count 0-8 [facility] Ketones Test strip Ql (U)Ord ered By: Damaso Charlton on 08-20-2024 Ketones Ql (U) Ketones [Presence] i n Urine by Test strip High Negative [facility] Laboratory - Microbiology an d Antimicrobial susceptibilityOrdered By: Damaso Charlton on 08-20-2024 Bacteria identified Cx Nom (Bld) NO GROWTH 5 DAYS [facility] Lactate [Moles/volume] in Se rum or PlasmaOrdered By: Damaso Charlton on 08-20-2024 Lactate [Moles/Vol] Lactate [Moles/volum e] in Serum or Plasma 0.5-1.9 [facility] Comment on above: Lactic Acid referenc e range has been updated to 0.5 1.9 mmol/L and the critical range of 2.0 or greater. Lactic Acidon 08-20-2024 Lactate [Moles/Vol] 0.9 mmol/L Normal 0.5-1.9 [facility] Comment on above: Result Comment: Lact ic Acid reference range has been updated to 0.5 ? 1.9 mmol/L and the critical range of 2.0 or greater.PERFORMED BY:[facility] [place] [address] [place], [place] [phone] MEDICAL DIRECTORANNE OLGUIN M.D. Performed By: #### L ACTIC ####[facility] [place] [address] [facility] Leukocyte clumps [Presence] in Urine by AutomatedOrdered By: Damaso Charlton on 08-20-2024 Leukocyte clumps Auto Ql (U) Leukocyte clumps [Presence] in Urine by Automated High None Seen [facility] Leukocyte esterase [Presence ] in Urine by Test stripOrdered By: Damaso Charlton on 08-20-2024 Leukocyte esterase Test strip Ql (U) Leukocyte esterase [Presence] in Urine by Test strip High Negative [facility] Leukocytes [#/area] in Urine sediment by Automated countOrdered By: Damaso Charlton on 08-20-2024 WBC Auto (Urine sed) [#/Area] Leukocytes [#/area] in Urine sediment by Automated count High 0-4 [facility] Leukocytes [#/volume] correc ej for nucleated erythrocytes in Blood by Automated counOrdered By: Damaso Charlton on 08-20-2024 WBC corrected for nucl RBC Auto (Bld) [#/Vol] Leukocytes [#/volume] corrected for nucleated erythrocytes in Blood by Automated coun 3.8-11.6 [facility] Lymphocytes Auto (Bld) [#/Vo l]Ordered By: Damaso Charlton on 08-20-2024 Lymphocytes (Bld) [#/Vol] Lymphocytes [#/volume] in Blood by Automated count 1.00-4.8 [facility] Lymphocytes/100 WBC Auto (Bl d)Ordered By: Damaso Charlton on 08-20-2024 Lymphocytes/100 WBC (Bld) Lymphocytes/100 leukocytes in Blood by Automated count . [facility] MCH Auto (RBC) [Entitic mass ]Ordered By: Damaso Charlton on 08-20-2024 MCH (RBC) [Entitic mass] MCH [Entitic mass] by Automated count 24.7-34.3 [facility] MCHC Auto (RBC) [Mass/Vol]Or dered By: Damaso Charlton on 08-20-2024 MCHC (RBC) [Mass/Vol] MCHC [Mass/volume] by Automated count 32.0-35.0 [facility] MCV Auto (RBC) [Entitic vol] Ordered By: Damaso Charlton on 08-20-2024 MCV (RBC) [Entitic vol] MCV [Entitic vol ume] by Automated count 80-100 [facility] Monocyte distribution width [Entitic volume] in Blood by AutomatedOrdered By: Damaso Charlton on 08-20-2024 Monocyte distribution width Auto (Bld) [Entitic vol] Monocyte distribution width [Entitic volume] in Blood by Automated 0.00-20.00 [facility] Monocytes Auto (Bld) [#/Vol] Ordered By: Damaso Charlton on 08-20-2024 Monocytes (Bld) [#/Vol] Automated blood monocyte count High 0.0-0.8 [facility] Monocytes/100 WBC Auto (Bld) Ordered By: Damaso Charlton on 08-20-2024 Monocytes/100 WBC (Bld) Automated monocyte % . [facility] Mucus [Presence] in Urine by AutomatedOrdered By: Damaso Charlton on 08-20-2024 Mucus Auto Ql (U) Mucus [Presence] in Urine by Automated [facility] Neutrophils Auto (Bld) [#/Vo l]Ordered By: Damaso Charlton on 08-20-2024 Neutrophils (Bld) [#/Vol] Neutrophils [#/volume] in Blood by Automated count 1.8-7.7 [facility] Neutrophils/100 WBC Auto (Bl d)Ordered By: Damaso Charlton on 08-20-2024 Neutrophils/100 WBC (Bld) Automated neutrophil % . [facility] Nitrite Test strip Ql (U)Ord ered By: Damaso Charlton on 08-20-2024 Nitrite Ql (U) Nitrite [Presence] i n Urine by Test strip Negative [facility] No Panel InformationOrdered By: Damaso Charlton on 08-20-2024 Estimated GFR (CKD-EPI) 37.541 mL/Min [facility] Pharmacy Creatinine Clearance (Chem 25.07 [facility] Nucleated erythrocytes [Pres ence] in Blood by Automated countOrdered By: Damaso Charlton on 08-20-2024 Nucleated RBC Auto Ql (Bld) Nucleated erythrocytes [Presence] in Blood by Automated count 0-0.5 [facility] Platelet adequacy [Presence] in Blood by Light microscopyOrdered By: Damaso Charlton on 08-20-2024 Platelets LM Ql (Bld) Platelet adequacy [Presence] in Blood by Light microscopy Normal [facility] Platelet mean volume Auto (B ld) [Entitic vol]Ordered By: Damaso Charlton on 08-20-2024 Platelet mean volume (Bld) [Entitic vol] Platelet mean volume [Entitic volume] in Blood by Automated count 6.3-10.7 [facility] Platelet morphology finding [Identifier] in BloodOrdered By: Damaso Charlton on 08-20-2024 Platelet morphology finding Nom (Bld) Platelet morphology finding [Identifier] in Blood [facility] Platelets Auto (Bld) [#/Vol] Ordered By: Damaso Charlton on 08-20-2024 Platelets (Bld) [#/Vol] Platelets [#/vol ume] in Blood by Automated count 150-450 [facility] Platelets Large [Presence] i n Blood by Light microscopyOrdered By: Damaso Charlton on 08-20-2024 Platelets Large LM Ql (Bld) Platelets Large [Presence] in Blood by Light microscopy [facility] Potassium [Moles/volume] in Serum or PlasmaOrdered By: Damaso Charlton on 08-20-2024 Potassium [Moles/Vol] Potassium [Moles/v olume] in Serum or Plasma 3.5-5.1 [facility] Protein Test strip (U) [Mass /Vol]Ordered By: Damaso Charlton on 08-20-2024 Protein (U) [Mass/Vol] Protein [Mass/vol ume] in Urine by Test strip High Negative [facility] Protein [Mass/volume] in Ser um or PlasmaOrdered By: Damaso Charlton on 08-20-2024 Protein [Mass/Vol] Protein [Mass/volume ] in Serum or Plasma 6.4-8.9 [facility] RBC Auto (Bld) [#/Vol]Ordere d By: Damaso Charlton on 08-20-2024 RBC (Bld) [#/Vol] Erythrocytes [#/volu me] in Blood by Automated count 3.60-5.00 [facility] Scan and CBCon 08-20-2024 Basophils (Bld) [#/Vol] 0.1 10*3/uL Normal 0.0-0.2 [facility] Comment on above: Result Comment: PERF ORMED BY:[address] [place], [place] [phone] MEDICAL DIRECTORANNE OLGUIN M.D. Performed By: #### S CAN CBC, CMP ####[place] [id number] [facility] Basophils/100 WBC (Bld) 1.7 % Normal . [facility] Comment on above: Performed By: #### S CAN CBC, CMP ####[facility] [id number] [place], [place] [id number] [place] Eosinophils (Bld) [#/Vol] 0.2 10*3/uL Normal 0.0-0.45 [facility] Comment on above: Performed By: #### S CAN CBC, CMP ####[place] [id number] [place] Eosinophils/100 WBC (Bld) 2.1 % Normal . [facility] Comment on above: Performed By: #### S CAN CBC, CMP ####[address] Erythrocyte distribution width (RBC) [Ratio] 14.6 % Normal 11.9-15.3 [facility] Comment on above: Performed By: #### S CAN CBC, CMP ####[address] Hematocrit (Bld) [Volume fraction] 38.4 % Normal 34.0-46.4 [facility] Comment on above: Performed By: #### S CAN CBC, CMP ####[address] Hemoglobin (Bld) [Mass/Vol] 13.1 g/dL Normal 11.8-15.4 [facility] Comment on above: Performed By: #### S CAN CBC, CMP ####[address] Large Platelets Slight Normal [facility] Comment on above: Result Comment: PERF ORMED BY:[address] [place], [place] [phone] MEDICAL DIRECTORANNE OLGUIN M.D. Performed By: #### S CAN CBC, CMP ####[address] Lymphocytes (Bld) [#/Vol] 2.7 10*3/uL Normal 1.00-4.8 [facility] Comment on above: Performed By: #### S CAN CBC, CMP ####[address] Lymphocytes/100 WBC (Bld) 34.8 % Normal . [facility] Comment on above: Performed By: #### S CAN CBC, CMP ####[address] MCH (RBC) [Entitic mass] 31.4 pg Normal 24.7-34.3 [facility] Comment on above: Performed By: #### S CAN CBC, CMP ####[address] MCV (RBC) [Entitic vol] 92.2 fL Normal 80-100 [facility] Comment on above: Performed By: #### S CAN CBC, CMP ####[address] Mean Corpuscular HGB Conc 34.1 g/dL Normal 32.0-35.0 [facility] Comment on above: Performed By: #### S CAN CBC, CMP ####[address] Monocytes (Bld) [#/Vol] 1.0 10*3/uL High 0.0-0.8 [facility] Comment on above: Performed By: #### S CAN CBC, CMP ####[address] Monocytes/100 WBC (Bld) 15.03 % Normal 0.00-20.00 [facility] Comment on above: Performed By: #### S CAN CBC, CMP ####[address] Monocytes/100 WBC (Bld) 13.1 % Normal . [facility] Comment on above: Performed By: #### S CAN CBC, CMP ####[address] Neutrophils (Bld) [#/Vol] 3.8 10*3/uL Normal 1.8-7.7 [facility] Comment on above: Performed By: #### S CAN CBC, CMP ####[address] Neutrophils/100 WBC (Bld) 48.3 % Normal . [facility] Comment on above: Performed By: #### S CAN CBC, CMP ####[address] NRBC% 0.2 /100{WBC} Normal 0-0.5 [facility] Comment on above: Performed By: #### S CAN CBC, CMP ####[place] [id number] [facility] Platelet Estimate Normal Normal Normal [facility] Comment on above: Performed By: #### S CAN CBC, CMP ####[place] [id number] [facility] Platelet mean volume (Bld) [Entitic vol] 9.4 fL Normal 6.3-10.7 [facility] Comment on above: Performed By: #### S CAN CBC, CMP ####[place] [id number] [facility] Platelets (Bld) [#/Vol] 314 10*3/uL Normal 150-450 [facility] Comment on above: Performed By: #### S CAN CBC, CMP ####[address] RBC (Bld) [#/Vol] 4.16 10*6/uL Normal 3.60-5.00 [facility] Comment on above: Performed By: #### S CAN CBC, CMP ####[address] WBC (Bld) [#/Vol] 7.9 10*3/uL Normal 3.8-11.6 [facility] Comment on above: Performed By: #### S CAN CBC, CMP ####[address] Serum or plasma albumin/glob ulin mass ratioOrdered By: Damaso Charlton on 08-20-2024 Albumin/Globulin [Mass ratio] Serum or plasma albumin/globulin mass ratio [facility] Serum or plasma anion gap de terminationOrdered By: Damaso Charlton on 08-20-2024 Anion gap [Moles/Vol] Serum or plasma an ion gap determination 6.0-15.0 [facility] Sodium [Moles/volume] in Ser um or PlasmaOrdered By: Damaso Charlton on 08-20-2024 Sodium [Moles/Vol] Sodium [Moles/volume ] in Serum or Plasma Low 136-145 [facility] Specific gravity Test strip (U) [Rel density]Ordered By: Damaso Charlton on 08-20-2024 Specific gravity (U) [Rel density] Specific gravity of Urine by Test strip 1.001-1.03 0 [facility] Urea nitrogen [Mass/volume] in Serum or PlasmaOrdered By: Damaso Charlton on 08-20-2024 Urea nitrogen [Mass/Vol] Urea nitrogen [Mass/volume] in Serum or Plasma High 7-25 [facility] Urine Cultureon 08-20-2024 Bacteria identified Cx Nom (U) Normal [facility] Comment on above: Performed By: #### C UU, ADDONUAPLUS ####[facility] Urine cultureOrdered By: Bushra Charlton on 08-20-2024 Bacteria identified Cx Nom (U) Abnormal [facility] Urobilinogen Test strip (U) [Mass/Vol]Ordered By: Damaso Charlton on 08-20-2024 Urobilinogen (U) [Mass/Vol] Urobilinogen [Mass/volume] in Urine by Test strip Normal [facility] WBC Auto (Bld) [#/Vol]Ordere d By: Damaso Charlton on 08-20-2024 WBC (Bld) [#/Vol] Leukocytes [#/volume ] in Blood by Automated count 3.8-11.6 [facility] X-ray reportOrdered By: Jared Henson on 08-20-2024 Study report [facility] Main [place] [address] [place] [address] XRay Report Signed Patient: Judith Land MR#: [id number] : 1945 Acct:[id number] Age/Sex: 79 / F ADM Date: 5 Loc: ER Room: Type: [facility] ER Attending Dr: Copies to: Damaso Charlton [...] Andrew Henson M.D.08/20/2024 9:48 PM Dictation Location: [facility] Transcribed By: [facility] 08/20/242147 Dictated By: Andrew Henson DO 08/20/242147 Signed By: 08/20/242147 [facility] XR chest 2V*on 08-20-2024 XR chest 2V* Normal [facility] pH Test strip (U)Ordered By: Damaso Charlton on 08-20-2024 pH (U) pH of Urine by Test strip 5.0-9.0 [facility] Main [place] Intraoperative Recor don 08-14-2024 Main OR Intraoperative Record Main OR Intraoperative Record IntraOp Document Type FT Summary Primary Physician: Supa Owen DO Finalized Date/Time: 08/14/24 07:53:51 Pt. Name: JUDITH LAND/Sex: 1945 Female Med Rec #: [id number] Physician: Supa Owen DO Financial #: [id number] Pt. Type: A Room/Bed: [place] [address] Admit/Disch: 08/12/24 07:26:35 - 08/12/24 12:30:00 Institution: [...] DIETRICH SUPERVISING ROOM ASSIST Last Modified By: Eli Ho RN, RN, Leann E Ott RN, Leann E 08/12/24 10:10:00 08/12/24 10:10:00 08/12/24 10:10:00 Entry 4 Entry 5 Case Attendee Eli Ho RN, Sydney A Role Performed Residence Life Director - Primary Scrub - Primary Time In 08/12/24 08:48:00 08/12/24 08:48:00 Time Out 08/12/24 10:06:00 08/12/24 10:06:00 Procedure WRIST FRACTURE WRIST FRACTURE ORIF(Right) ORIF(Right) Comments Last Modified By: Eli Ho RN, RN, Leann E 08/12/24 10:10:00 08/12/24 10:10:00 General Comments: JUAN CALVILLO NP SCRUBBED IN FOR THIS CASE. 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 Normal [facility] 37on 08-13-2024 37 *we will discontinue amlodipine to see if this will help with your leg swelling. *We are splitting lisinopril and hydrochlorothiazide. *We increased lisinopril to 40mg daily. Continue hydrochlorothiazide 25mg daily. *Have lab work done in 2 weeks. *Write down blood pressure readings 2 hours after BP medications. Normal [facility] Office Visiton 08-13-2024 Follow-up visit [id number] Donato Land 1945 F Date Provider Department Center 08/13/2024 SOPHIE COLIN CARD [facility] Family History Problem Relation Age of Onset Stroke Mother Stroke Brother Other Mother's Sister Coronary artery disease Mother's Sister Stroke Maternal Grandmother Family Status - Relation Status Age at Mother Brother Mother's Sister Maternal Grandmother Level of Service:29588 SD OFFICE/OUTPATIENT ESTABLISHED MOD [facility] 30 MIN Reason for Visit and Comments: Cardiac Stress Test [489] Hyperlipidemia [182] Hypertension [980235] Edema [[id number]] Normal [facility] Operative Reporton Operative Report Operative Report SURGERY DATE: 08/12/2024 GUEST SERVICES MANAGER: Juan Calvillo APRN, SMOKE ROOM OPERATOR-C PREOPERATIVE DIAGNOSIS: Right distal radius and ulna fracture POSTOPERATIVE DIAGNOSIS: Right distal radius and ulna fracture OPERATION: Right wrist open reduction and internal fixation of the distal radius ANESTHESIA: General ANESTHESIOLOGIST: Oz ClineR.N.A. ESTIMATED BLOOD LOSS: None SPECIMEN: None COMPLICATIONS: [...] The patient is subsequently extubated, transferred to [facility], and taken to Postanesthesia Care Unit in stable condition. She will be discharged this day. Niya Torres Dictated: 08/12/2024 [id number] Transcribed: 08/12/2024 Normal [facility] Comment on above: Result Comment: Elec tronically Signed By: Supa Owen DO\.br\Date and Time Signed: 08/13/24 07:21 EST Urine Cultureon 08-13-2024 Bacteria identified Cx Nom (U) Normal [facility] Comment on above: Performed By: #### C UU ####[facility] [address] [place] [id number] [facility] Urine cultureOrdered By: Cristian Sams on 08-13-2024 Bacteria identified Cx Nom (U) Abnormal [facility] Discharge Instructionson Discharge Instructions Discharge Instruc tions DONATO LANDROSEMARY Davis :1945 Visit Date:08/12/2024 Inpatient Discharge Instructions Your Care Team Admitting Physician - Supa Owen DO Referring Physician - Supa Owen DO Reason for Your Visit RIGHT WRIST FRACTURE Tests Performed XR Wrist 2 Views Right -- Results Pending -- Please visit your patient portal for your results or contact your primary care physician. This Is Your Medications List acetaminophen-hydrocodone (Boyd 325 mg-5 mg oral tablet) alprazolam (alprazolam 1 mg Tab) amantadine (amantadine 100 mg Tab) amlodipine (amLODIPine 5 mg Tab) aspirin (aspirin 81 mg oral tablet) carbidopa-levodopa (carbidopa-levodopa 25 mg-100 mg ER Tab) ergocalciferol (Vitamin D) gabapentin (gabapentin 300 mg Cap) hydrochlorothiazide-lisin opril (hydrochlorothiazide-jose alejandro nopril 25 mg-20 mg Tab) pantoprazole (Pantoprazole 40 [...] after Discharge Follow Up with Supa Owen DO ORT When: 08/25/2024 01:15 PM EDT Where: [address] [place] [address]- Medications What How Much When Instructions Next Dose Unchanged acetaminophen-hydrocodone (Boyd 325 mg-5 mg oral tablet) See instructions 1 - 2 po q4-6h prn pain Dx: S52.501D Duration: 7 days Pickup at [facility]/pharmacy #[id number] Unchanged alprazolam (alprazolam 1 mg Tab) 1 [...] Once a day (in the evening) Unchanged hydrochlorothiazide-lisin opril (hydrochlorothiazide-jose alejandro nopril 25 mg-20 mg Tab) 1 Tablets By [...] Tablets By Mouth Every day Pharmacy Information [facility]/pharmacy #[id number]: [address], [place] [id number] [phone] Allergies sulfa drugs (Unknown) [employer] [place], [place] [facility] OUTPATIENT SURGERY Home Care [...] your post-operative (more content not included)... Normal [facility] Comment on above: Result Comment: Elec tronically Signed By: Marjan SAM, Sofia Wilkins\.andreia\Date and Time Signed: 08/12/24 10:27 EST Main OR PACU I Recordon 03 Main OR PACU I Record Main OR PACU I Rec ord PACU Phase I Document Type FT Summary Primary Physician: Supa Owen DO Finalized Date/Time: 08/12/24 11:56:10 Pt. Name: JUDITH LAND/Sex: 1945 Female Med Rec #: [id number] Physician: Supa Owen DO Financial #: [id number] Pt. Type: A Room/Bed: Admit/Disch: 08/12/24 07:26:35 - Institution: Case Times [...] 10:52 Genesis Roberts RN 08/12/24 11:56 Normal [facility] Main OR PACU II Recordon Main OR PACU II Record Main OR PACU II R ecord PACU Phase II Document Type FT Summary Primary Physician: Supa Owen DO Finalized Date/Time: 08/12/24 12:35:27 Pt. Name: JUDITH LAND Susan Damon./Sex: 1945 Female Med Rec #: [id number] Physician: Supa Owen DO Financial #: [id number] Pt. Type: A Room/Bed: [facility] Admit/Disch: 08/12/24 07:26:35 - Institution: Case Times [...] Signed By: Sofia Phillip RN 08/12/24 12:35 Normal [facility] Main OR Preoperative Recordo n 08-12-2024 Main OR Preoperative Record Main OR Preoperative Record PreOp Document Type FT Summary Primary Physician: Supa Owen DO Finalized Date/Time: 08/12/24 09:25:02 Pt. Name: DONATO LANDROSEMARY Davis D.O.B./Sex: 1945 Female Med Rec #: [id number] Physician: Supa Owen DO Financial #: [id number] Pt. Type: A Room/Bed: [facility]/ Admit/Disch: 08/12/24 07:26:35 - Institution: Case Times [...] By: Eli Ho RN 08/12/24 09:25 Normal [facility] Urine Cultureon 08-06-2024 Bacteria identified Cx Nom (U) Normal [facility] Comment on above: Performed By: #### C UU ####[facility] [address] [place] [address] [facility] Urine cultureOrdered By: Alexis Ramachandran on 08-06-2024 Bacteria identified Cx Nom (U) Urine culture [facility] C Urineon 08-05-2024 Bacteria identified Cx Nom [...] R1: This test was performed at: [facility], [address] [place] [address], [address] , [place], Normal [facility] Comment on above: Performed By: #### 2 [id number] ####[facility] [address] [place] [address] CT Head or Brain w/o Contras ton [...] MD Transcribed by: OTONIEL Technologist: LEONARDA Ojeda [facility] BMPon 08-03-2024 Anion gap [Moles/Vol] 10 mmol/L Normal 6-16 [facility] Comment on above: Performed By: #### 2 [id number] #### [facility] [address] [place] [address] Calcium [Mass/Vol] 10.9 mg/dL Normal 8.9-11.1 [facility] Comment on above: Performed By: #### 2 [id number] #### [facility] [address] [place] [address] Chloride [Moles/Vol] 105 mmol/L Normal 101-111 [facility] Comment on above: Performed By: #### 2 472103 #### [facility] [address] [place] [address] CO2 [Moles/Vol] 28 mmol/L Normal 21-31 [facility] Comment on above: Performed By: #### 2 [id number] #### [facility] [address] [place] [address] Creatinine [Mass/Vol] 1.3 mg/dL Normal 0.5-1.3 [facility] Comment on above: Performed By: #### 2 [id number] #### [facility] [address] [place] [address] Glucose [Mass/Vol] 123 mg/dL Normal 55-199 [facility] Comment on above: Performed By: #### 2 814474 #### [facility] [address] [place] [address] Potassium [Moles/Vol] 3.9 mmol/L Normal 3.5-5.3 [facility] Comment on above: Performed By: #### 2 [id number] #### [facility] [address] [place] [address] Sodium [Moles/Vol] 139 mmol/L Normal 135-145 [facility] Comment on above: Performed By: #### 2 [id number] #### [facility] [address] [place] [address] Urea nitrogen [Mass/Vol] 30 mg/dL High 5-21 [facility] Comment on above: Performed By: #### 2 230900 #### [facility] [address] [place] [address] Urea nitrogen/Creatinine [Mass ratio] 23 No Units High 10-20 [facility] Comment on above: Performed By: #### 2 [id number] #### [facility] [address] [place] [address] CBC w/ Auto Diffon 5 Basophils/100 WBC (Bld) 1.0 % Normal 0.0-2.0 [facility] Comment on above: Performed By: #### 2 032324 #### [facility] [address] [place] [address] Basophils/Leukocytes Auto (Bld) [Pure # fraction] 0.1 E9/L Normal 0.0-0.2 [facility] Comment on above: Performed By: #### 2 529102 #### [facility] [address] [place] [address] Eosinophils (Bld) [#/Vol] 0.5 E9/L Normal 0.0-0.5 [facility] Comment on above: Performed By: #### 2 107348 #### [facility] [address] [place] [address] Eosinophils/100 WBC (Bld) 6.1 % Normal 0.0-8.0 [facility] Comment on above: Performed By: #### 2 275079 #### [facility] [address] [place] [address] Erythrocyte distribution width (RBC) [Ratio] 14.9 % High 10.9-14.2 [facility] Comment on above: Performed By: #### 2 226174 #### [facility] [address] [place] [address] Hematocrit (Bld) [Volume fraction] 40.4 % Normal 34.0-46.0 [facility] Comment on above: Performed By: #### 2 906230 #### [facility] [address] [place] [address] Hemoglobin (Bld) [Mass/Vol] 13.8 g/dL Normal 12.0-16.0 [facility] Comment on above: Performed By: #### 2 388378 #### [facility] [address] [place] [address] Lymphocytes (Bld) [#/Vol] 2.2 E9/L Normal 1.0-4.0 [facility] Comment on above: Performed By: #### 2 635437 #### [facility] [address] [place] [address] Lymphocytes/100 WBC (Bld) 26.2 % Normal 14.0-50.0 [facility] Comment on above: Performed By: #### 2 284567 #### [facility] [address] [place] [address] MCH (RBC) [Entitic mass] 31.8 pg Normal 27.0-34.0 [facility] Comment on above: Performed By: #### 2 525471 #### [facility] [address] [place] [address] MCHC (RBC) [Mass/Vol] 34.1 g/dL Normal 31.4-36.0 [facility] Comment on above: Performed By: #### 2 199446 #### [facility] [address] [place] [address] MCV (RBC) [Entitic vol] 93.4 fL Normal 80.0-100.0 [facility] Comment on above: Performed By: #### 2 887406 #### [facility] [address] [place] [address] Monocytes (Bld) [#/Vol] 0.9 E9/L Normal 0.2-1.0 [facility] Comment on above: Performed By: #### 2 547814 #### [facility] [address] [place] [address] Neutrophils (Bld) [#/Vol] 4.6 E9/L Normal 2.0-7.5 [facility] Comment on above: Performed By: #### 2 945359 #### [facility] [address] [place] [address] Neutrophils/100 WBC (Bld) 55.5 % Normal 36.0-75.0 [facility] Comment on above: Performed By: #### 2 535700 #### [facility] [address] [place] [address] Platelet 357.0 E9/L Normal 150.0-500. 0 [facility] Comment on above: Performed By: #### 2 551161 #### [facility] [address] [place] [address] Platelet mean volume (Bld) [Entitic vol] 9.0 fL Normal 6.4-10.8 [facility] Comment on above: Performed By: #### 2 855168 #### [facility] [address] [place] [address] RBC (Bld) [#/Vol] 4.3 E12/L Normal 4.3-5.9 [facility] Comment on above: Performed By: #### 2 587255 #### [facility] [address] [place] [address] WBC corrected for nucl RBC Auto (Bld) [#/Vol] 8.3 E9/L Normal 4.0-11.0 [facility] Comment on above: Performed By: #### 2 589545 #### [facility] [address] [place] [address] CHEMISTRYOrdered By: SYSTEM SYSTEM on 08-03-2024 Anion [...] Chem eGFR 42 mL/min/1.73 m2 Low >=59mL/min /1.73 m2 Remisol Chem Glucose [Mass/Vol] 123 mg/dL [...] 2024 ED Clinical Summary ED Clinical Summary [place] [id number] ED Clinical Summary Person Information Name: JUDITH LAND [facility] Age: 79 Years : 1945 Sex: Female Language: Italian PCP: Kavon Sams MD Marital Status: Visit [...] 08/03/2024 21:56:18 08/03/2024 21:56:18 08/03/2024 21:56:18 AD[address]ESS: [address] [facility] [id number] PHYS DOC NOTES: MEDICAL INFORMATION: Prescriptions Given: New Medications [id number], [address], [place] [id number], [phone] cephalexin (Keflex 500 mg Cap) 1 Capsules By Mouth every 12 hours for 5 Days. Refills: 0. Medications to Continue with No Changes Other Medications ciprofloxacin (Cipro 500 mg Tab) 1 Tablets By Mouth 2 times a day. Refills: 0. PATIENT EDUCATION INFORMATION: Instructions: Urinary Tract Infection, Adult Follow up: With: Address: When: Kavon Sams [address] [facility], [address] [place] [phone] Business (1) In 3 days 08/06/2024 Comments: [...] or worsening symptoms. DIAGNOSIS: Acute UTI Normal [facility] ED Note-Physicianon 08-03-19 ED Note-Physician ED [...] day(s), # 10 cap(s), Refills(s) 0, Pharmacy: [facility]/pharmacy #[id number], 167, cm, 08/03/24 19:04:00 EST, Height/Length [...] q12hr Follow-up With When Contact Information Kavon Sams In 3 days 08/06/2024 EST [facility] [place] [id number]- Business (1) Additional Instructions: Call the office [...] PRN amLODIPine (more content not included)... Normal [facility] Comment on above: Result Comment: Elec tronically Signed By: Demarco Beaver DO\.br\Date and Time Signed: 08/03/24 22:07 EST ED Patient Summaryon 025 ED Patient Summary ED Patient Summary [place] [id number] Patient Discharge Instructions Person Information Name: JUDITH LAND Age: 79 Years Arrival Date: 08/03/2024 18:49:35 Discharge Diagnosis: Acute UTI Primary Care Physician: Kavon Sams MD Provider Information Primary Provider: Demarco Beaver DO Advanced Color Stripper:None The exam and treatment you received in the Emergency Department were for an urgent problem and are not intended as complete care. It is important that you follow up with a doctor, nurse practitioner, or physician???s assistant professor of anthropology for ongoing care. If your symptoms become worse or you do not improve as expected and you are unable to reach your usual health care provider, you should return to the Emergency Department. We are available 24 hours a day. JUDITH LAND has been given the following list of patient education materials, prescriptions and follow-up instructions: Follow-up Instructions: With: Address: When: Kavon Flaquita [address] [place] [address] [place] [phone] Business () In 3 days 08/06/2024 Comments: Call the [...] opioids can be used to help relieve jibxvtyi-fy-iyqgff pain and are often prescribed following a [...] prescription op (more content not included)... Normal [facility] Extra Blueon 08-03-2024 Tube Collected Plasma Yes Invalid Interpretation Code [facility] Comment on above: Performed By: #### 1 [id number] #### [facility] [address] [place] [address] HEMATOLOGYOrdered By: SYSTEM SYSTEM on 08-03-2024 Basophils/100 [...] 25 Bilirubin Ql (U) Negative Normal Negative [facility] Comment on above: Performed By: #### 4 [id number] #### [facility] [address] [place] [address] Clarity (U) Clear Normal Clear [facility] Comment on above: Performed By: #### 4 [id number] #### [facility] [address] [place] [address] Color (U) Light-Yellow Normal Yellow [facility] Comment on above: Result Comment: Micr oscopic readings are only performed on those samples that meet specific criteria set forth by [facility]. Performed By: #### 4 [id number] #### [facility] [address] [place] [address] Epithelial cells.squamous Auto (Urine sed) [#/Area] 0-2 Invalid Interpretation Code [facility] Comment on above: Performed By: #### 4 [id number] #### [facility] [address] [place] [address] Glucose Ql (U) Negative Normal Negative [facility] Comment on above: Performed By: #### 4 [id number] #### [facility] [address] [place] [address] Hemoglobin Auto test strip (U) [Mass/Vol] 2+ mg/dL Abnormal Negative [facility] Comment on above: Performed By: #### 4 [id number] #### [facility] [address] [place] [address] Ketones Auto test strip Ql (U) Negative Normal Negative [facility] Comment on above: Performed By: #### 4 [id number] #### [facility] [address] [place] [address] Leukocyte esterase Auto test strip Ql (U) 75 Veronique/uL Abnormal Negative [facility] Comment on above: Performed By: #### 4 [id number] #### [facility] [address] [place] [address] Mucus Auto Ql (U) Negative Normal Negative [facility] Comment on above: Performed By: #### 4 [id number] #### [facility] [address] [place] [address] Nitrite Auto test strip Ql (U) Negative Normal Negative [facility] Comment on above: Performed By: #### 4 [id number] #### [facility] [address] [place] [address] pH (U) 6.0 [pH] Invalid Interpretation Code 5.0-9.0 [facility] Comment on above: Performed By: #### 4 [id number] #### [facility] [address] [place] [address] Protein Ql (U) Negative Normal Negative [facility] Comment on above: Performed By: #### 4 [id number] #### [facility] [address] [place] [address] RBC Ql (U) 31-75 Abnormal 0-3 [facility] Comment on above: Performed By: #### 4 [id number] #### [facility] [address] [place] [address] Specific gravity (U) [Rel density] 1.013 Invalid Interpretation Code 1.005-1.03 0 [facility] Comment on above: Performed By: #### 4 [id number] #### [facility] [address] [place] [address] Urobilinogen (U) [Mass/Vol] Negative Normal Negative [facility] Comment on above: Performed By: #### 4 [id number] #### [facility] [address] [place] [address] WBC Auto (Urine sed) [#/Area] 6-15 Abnormal 0-5 [facility] Comment on above: Performed By: #### 4 [id number] #### [facility] [address] [place] [address] Type of Urine collection method Clean Catch Normal [facility] Comment on above: Performed By: #### 4 [id number] #### [facility] [address] [place] [address] URINALYSISOrdered By: SYSTEM SYSTEM on 08-03-2024 Bilirubin Ql (U) Negative Normal Negativemg /dL FT UA Auto SS Clarity (U) Clear (08/03/24 7:52 PM) Normal Clear [facility] UA Auto SS Color (U) Light-Yellow 1 (08/03/24 7:52 PM) Normal Yellow [facility] UA Auto SS Comment on above: Interpretive Data: M icroscopic readings are only performed on those samples that meet specific criteria set forth by [facility]. Epithelial cells.squamous Auto (Urine sed) [#/Area] 0-2 graded/HPF Invalid Interpretation Code [facility] UA Auto SS Glucose Ql (U) Negative Normal Negativemg /dL [facility] Auto SS Hemoglobin Auto test strip (U) [Mass/Vol] 2+ mg/dL Invalid Interpretation Code Negativemg /dL [facility] Auto SS Ketones Auto test strip Ql (U) Negative Normal Negativemg /dL [facility] UA Auto SS Leukocyte esterase Auto test strip Ql (U) 75 Veronique/uL Veronique/uL Invalid Interpretation Code NegativeLe u/uL [facility] UA Auto SS Mucus Auto Ql (U) Negative Normal Negativegr aded/LPF [facility] UA Auto SS Nitrite Auto test strip Ql (U) Negative Normal Negativemg /dL [facility] UA Auto SS pH (U) 6.0 *NA* (08/03/24 7:52 PM) Invalid Interpretation Code 5.0 - 9.0 [facility] UA Auto SS Protein Ql (U) Negative Normal Negativemg /dL [facility] UA Auto SS RBC Ql (U) 31-75 graded/HPF Invalid Interpretation Code 0-3graded/ HPF [facility] UA Auto SS Specific gravity (U) [Rel density] 1.013 *NA* (08/03/24 7:52 PM) Invalid Interpretation Code 1.005 - 1.030 [facility] UA Auto SS Urobilinogen (U) [Mass/Vol] Negative Normal Negativemg /dL [facility] UA Auto SS WBC Auto (Urine sed) [#/Area] 6-15 graded/HPF Invalid Interpretation Code 0-5graded/ HPF [facility] UA Auto SS URINALYSISOrdered By: Gillian Seay on 08-03-2024 UA Spec Desc Clean Catch (08/03/24 7:52 PM) Normal [facility] Auto SS eGFRon 08-03-2024 eGFR 42 mL/min/1.73 m2 Low >=59 [facility] Comment on above: Performed By: #### 1 [id number] #### [facility] [address] [place] [address] [facility]24 CNPN Telephone (NREUS2) ----- JUDITH LAND ([id number]) 1945 F Date Time Provider Department 07/30/24 CHERIE CEDENO NREUS2 During your visit today, we recorded the following information about you: Gabbi Ennis 07/30/2024 1:[address] Owen office phoned - patient fell an broke her ulna and will need surgery. They would like to discuss with Cherie from PD standpoint if ok for surgery. [phone] She will also fax over a generic form for completion. Can either call or complete form. Gabbi Ennis 07/30/2024 2:03 PM Signed Form received via fax. Not really anything for RN's to complete. [facility] [employer] [facility] 08/05/2024 7:46 AM Signed Looks like I [...] 20 mg by mouth once daily. - lisinopril-hydrochlorothi azide 20-25 mg per tablet Take 1 tablet [...] Status:Closed by GABBI ENNIS on 07/30/24 Normal [facility] Urineon 07-28-2024 Bacteria identified Cx Nom (U) Microbiology PROCEDURE: Urine Culture [R1] SOURCE: U Random BODY SITE: COLLECTED DATE/TIME: 07/26/2024 17:10 EST RECEIVED DATE/TIME: 07/26/2024 18:08 EST START DATE/TIME: 07/26/2024 18:08 EST FREE TEXT SOURCE: Sae Morfin DO, DO, John FINAL REPORTS Final Report [] Verified Date/Time: 07/28/2024 10:44 EST 4,000 cfu/ml Mixed skin contaminants Performing Locations R1: [facility] [address] [place] [address], [phone] , [place], Normal [facility] Comment on above: Performed By: #### 2 [id number] #### [facility] [address] [place] [address] Head or Brain w/o Contras ton [...] MD Transcribed by: OTONIEL Technologist: SAJAN Ojeda [facility] XR Chest Single Viewon 07-27 XR [...] MD Transcribed by: OTONIEL Technologist: PARISH Normal [facility] BMPon 07-26-2024 Anion gap [Moles/Vol] 13 mmol/L Normal 6-16 [facility] Comment on above: Performed By: #### 2 [id number] #### [facility] [address] [place] [address] Calcium [Mass/Vol] 10.8 mg/dL Normal 8.9-11.1 [facility] Comment on above: Performed By: #### 2 [id number] #### [facility] [address] [place] [address] Chloride [Moles/Vol] 103 mmol/L Normal 101-111 [facility] Comment on above: Performed By: #### 2 [id number] #### [facility] [address] [place] [address] CO2 [Moles/Vol] 27 mmol/L Normal 21-31 [facility] Comment on above: Performed By: #### 2 [id number] #### [facility] [address] [place] [address] Creatinine [Mass/Vol] 1.3 mg/dL Normal 0.5-1.3 [facility] Comment on above: Performed By: #### 2 [id number] #### [facility] [address] [place] [address] Glucose [Mass/Vol] 94 mg/dL Normal 55-199 [facility] Comment on above: Performed By: #### 2 [id number] #### [facility] [address] [place] [address] Potassium [Moles/Vol] 4.7 mmol/L Normal 3.5-5.3 [facility] Comment on above: Performed By: #### 2 [id number] #### [facility] [address] [place] [address] Sodium [Moles/Vol] 138 mmol/L Normal 135-145 [facility] Comment on above: Performed By: #### 2 [id number] #### [facility] [address] [place] [address] Urea nitrogen [Mass/Vol] 31 mg/dL High 5-21 [facility] Comment on above: Performed By: #### 2 [id number] #### [facility] [address] [place] [address] Urea nitrogen/Creatinine [Mass ratio] 24 No Units High 10-20 [facility] Comment on above: Performed By: #### 2 [id number] #### [facility] [address] [place] [address] CBC w/ Auto Diffon 5 Basophils/100 WBC (Bld) 1.0 % Normal 0.0-2.0 [facility] Comment on above: Performed By: #### 2 [id number] #### [facility] [address] [place] [address] Basophils/Leukocytes Auto (Bld) [Pure # fraction] 0.1 E9/L Normal 0.0-0.2 [facility] Comment on above: Performed By: #### 2 [id number] #### [facility] [address] [place] [address] Eosinophils (Bld) [#/Vol] 0.7 E9/L High 0.0-0.5 [facility] Comment on above: Performed By: #### 2 [id number] #### [facility] [address] [place] [address] Eosinophils/100 WBC (Bld) 7.4 % Normal 0.0-8.0 [facility] Comment on above: Performed By: #### 2 [id number] #### [facility] [address] [place] [address] Erythrocyte distribution width (RBC) [Ratio] 15.1 % High 10.9-14.2 [facility] Comment on above: Performed By: #### 2 [id number] #### [facility] [address] [place] [address] Hematocrit (Bld) [Volume fraction] 41.5 % Normal 34.0-46.0 [facility] Comment on above: Performed By: #### 2 [id number] #### [facility] [address] [place] [address] Hemoglobin (Bld) [Mass/Vol] 14.0 g/dL Normal 12.0-16.0 [facility] Comment on above: Performed By: #### 2 [id number] #### [facility] [address] [place] [address] Lymphocytes (Bld) [#/Vol] 2.7 E9/L Normal 1.0-4.0 [facility] Comment on above: Performed By: #### 2 [id number] #### [facility] [address] [place] [address] Lymphocytes/100 WBC (Bld) 26.2 % Normal 14.0-50.0 [facility] Comment on above: Performed By: #### 2 [id number] #### [facility] [address] [place] [address] MCH (RBC) [Entitic mass] 31.5 pg Normal 27.0-34.0 [facility] Comment on above: Performed By: #### 2 [id number] #### [facility] [address] [place] [address] MCHC (RBC) [Mass/Vol] 33.7 g/dL Normal 31.4-36.0 [facility] Comment on above: Performed By: #### 2 [id number] #### [facility] [address] [place] [address] MCV (RBC) [Entitic vol] 93.5 fL Normal 80.0-100.0 [facility] Comment on above: Performed By: #### 2 [id number] #### [facility] [address] [place] [address] Monocytes (Bld) [#/Vol] 1.4 E9/L High 0.2-1.0 [facility] Comment on above: Performed By: #### 2 654606 #### [facility] [address] [place] [address] Neutrophils (Bld) [#/Vol] 5.3 E9/L Normal 2.0-7.5 [facility] Comment on above: Performed By: #### 2 775351 #### [facility] [address] [place] [address] Neutrophils/100 WBC (Bld) 52.0 % Normal 36.0-75.0 [facility] Comment on above: Performed By: #### 2 [id number] #### [facility] [address] [place] [address] Platelet 300.0 E9/L Normal 150.0-500. 0 [facility] Comment on above: Performed By: #### 2 [id number] #### [facility] [address] [place] [address] Platelet mean volume (Bld) [Entitic vol] 9.5 fL Normal 6.4-10.8 [facility] Comment on above: Performed By: #### 2 [id number] #### [facility] [address] [place] [address] RBC (Bld) [#/Vol] 4.4 E12/L Normal 4.3-5.9 [facility] Comment on above: Performed By: #### 2 [id number] #### [facility] [address] [place] [address] WBC corrected for nucl RBC Auto (Bld) [#/Vol] 10.2 E9/L Normal 4.0-11.0 [facility] Comment on above: Result Comment: Evelyne pheral smear review performed. Performed By: #### 2 [id number] #### [facility] [address] [place] [address] CHEMISTRYOrdered By: SYSTEM SYSTEM on 07-26-2024 Troponin [...] High Sensitivity Troponin I Instructions For Use, BOLD Guidance, January 2018) Anion gap [Moles/Vol] 13 mmol/L [...] Chem eGFR 42 mL/min/1.73 m2 Low >=59mL/min /1.73 m2 Remisol Chem Glucose [Mass/Vol] 94 mg/dL [...] Sensitivity Troponin I Instructions For Use, [facility], January 2018) Urea nitrogen [Mass/Vol] 31 mg/dL High 5 - 21 mg/dL Remisol Chem Urea nitrogen/Creatinine [Mass ratio] 24 mg/mg High 10 - 20 Remisol Chem ED Clinical Summaryon 2024 ED Clinical Summary ED Clinical Summary [place] [address] ED Clinical Summary Person Information Name: JUDITH LAND [place] Age: 79 Years : 1945 Sex: Female Language: Italian PCP: Kavon Sams MD Marital Status: Visit [...] 07/26/2024 18:34:16 07/26/2024 18:34:16 07/26/2024 18:34:16 ADDRESS: [address] [place] [id number] PHYS DOC NOTES: MEDICAL INFORMATION: Prescriptions Given: Medications to Continue Taking That Have Changed [id number], [address], [place] [id number], [phone] START: ciprofloxacin (Cipro 500 mg Tab) 1 [...] tablet) 1 Tablets By Mouth every day. hydrochlorothiazide-lisin opril (hydrochlorothiazide-jose alejandro nopril 25 mg-20 mg Tab) 2 Tablets By [...] Follow up: With: Address: When: Kavon Sams [address] [place] [address], [address] [place] [phone] Business (1) In 3 days DIAGNOSIS: Altered mental status; Dehydration; UTI (urinary tract infection) Normal [facility] ED Note-Physicianon 07-26-19 ED Note-Physician ED [...] had a urinalysis dropped off at the [facility] on but they do not have the [...] BID, # 14 tab(s), Refills(s) 0, Pharmacy: [id number], 167, cm, 07/26/24 16:07:00 EST, Height/Length [...] Information Kavon Sams In 3 days [address] [facility] [address] [place] [phone]- Business (1) Additional Instructions: Problem List/Past Medical [...] Tab, 1 (more content not included)... Normal [facility] Comment on above: Result Comment: Elec tronically Signed By: Sae Morfin DO\.br\Date and Time Signed: 07/26/24 18:26 EST ED Patient Education Noteon 07-26-2024 ED Patient Education Note ED Patient Education Note Normal [facility] ED Patient Summaryon 025 ED Patient Summary ED Patient Summary [address] [address] Patient Discharge Instructions Person Information Name: JUDITH LAND Age: 79 Years Arrival Date: 07/26/2024 15:51:40 Discharge Diagnosis: Altered mental status; Dehydration; UTI (urinary tract infection) Primary Care Physician: Kavon Sams MD Provider Information Primary Provider: Sae Morfin DO Advanced Color Stripper:None The exam and treatment you received in the Emergency Department were for an urgent problem and are not intended as complete care. It is important that you follow up with a doctor, nurse practitioner, or physician???s assistant professor of anthropology for ongoing care. If your symptoms become worse or you do not improve as expected and you are unable to reach your usual health care provider, you should return to the Emergency Department. We are available 24 hours a day. JUDITH LAND has been given the following list of patient education materials, prescriptions and follow-up instructions: Follow-up Instructions: With: Address: When: Kavon Sams [address] [place] [address], [facility] [address] [place] [phone] [facility] (1) In 3 days In the event that this physician does not participate in your insurance network, please consult with your insurance company to find a nearby participating provider. Patient Education Materials: A MESSAGE TO ALL PATIENTS REGARDING OPIOIDS PRESCRIPTION OPIOIDS: WHAT YOU NEED TO KNOW Prescription opioids can be used to help relieve nkjwxayw-sh-xehkuo pain and are often prescribed following a [...] guidance from the Food and Drug Administration (www.fda.gov/Drugs/Resour cesForYou). ??? Visit www.cdc.gov/drugoverdose to learn about the risks of opioids abuse and overdose. ??? If you believe you may be struggling with addiction, tell your health critical care technician and a (more content not included)... Normal [facility] HEMATOLOGYOrdered By: SYSTEM SYSTEM on 07-26-2024 [...] Hr.on 07-26-2024 Troponin HS 11.10 pg/mL Normal 10.10-27.1 0 [facility] Comment on above: Result Comment: The 95% CI (Confidence Interval) PPV (Positive Predictive Value) for myocardial infarction in females is 38 pg/mL, in males 51 pg/mL. The results should be used in conjunction with clinical conditions of myocardial infarction. (Access High Sensitivity Troponin I Instructions For Use, BOLD Guidance, January 2018) Performed By: #### 1 [id number] #### [facility] [address] [place] [address] Troponin 1 Hr.on 07-26-2024 Troponin HS 10.10 pg/mL Normal 10.10-27.1 0 [facility] Comment on above: Order Comment: 1709 Result Comment: The 95% CI (Confidence Interval) PPV (Positive Predictive Value) for myocardial infarction in females is 38 pg/mL, in males 51 pg/mL. The results should be used in conjunction with clinical conditions of myocardial infarction. (Access High Sensitivity Troponin I Instructions For Use, BOLD Guidance, January 2018) Performed By: #### 1 [id number] #### [facility] [address] [place] [address] UA with Cult Rflxon 07-26-19 25 Bilirubin Ql (U) Negative Normal Negative [facility] Comment on above: Performed By: #### 4 [id number] #### [facility] [address] [place] [address] Clarity (U) Clear Normal Clear [facility] Comment on above: Performed By: #### 4 [id number] #### [facility] [address] [place] [address] Color (U) Light-Yellow Normal Yellow [facility] Comment on above: Result Comment: Micr oscopic readings are only performed on those samples that meet specific criteria set forth by [facility]. Performed By: #### 4 [id number] #### [facility] [address] [place] [address] Epithelial cells.squamous Auto (Urine sed) [#/Area] 0-2 Invalid Interpretation Code [facility] Comment on above: Performed By: #### 4 [id number] #### [facility] [address] [place] [address] Glucose Ql (U) Negative Normal Negative [facility] Comment on above: Performed By: #### 4 [id number] #### [facility] [address] [place] [address] Hemoglobin Auto test strip (U) [Mass/Vol] 3+ mg/dL Abnormal Negative [facility] Comment on above: Performed By: #### 4 [id number] #### [facility] [address] [place] [address] Ketones Auto test strip Ql (U) Negative Normal Negative [facility] Comment on above: Performed By: #### 4 [id number] #### [facility] [address] [place] [address] Leukocyte esterase Auto test strip Ql (U) 75 Veronique/uL Abnormal Negative [facility] Comment on above: Performed By: #### 4 [id number] #### [facility] [address] [place] [address] Mucus Auto Ql (U) Negative Normal Negative [facility] Comment on above: Performed By: #### 4 [id number] #### [facility] [address] [place] [address] Nitrite Auto test strip Ql (U) Negative Normal Negative [facility] Comment on above: Performed By: #### 4 [id number] #### [facility] [address] [place] [address] pH (U) 6.5 [pH] Invalid Interpretation Code 5.0-9.0 [facility] Comment on above: Performed By: #### 4 [id number] #### [facility] [address] [place] [address] Protein Ql (U) Negative Normal Negative [facility] Comment on above: Performed By: #### 4 [id number] #### [facility] [address] [place] [address] RBC Ql (U) 4-20 Abnormal 0-3 [facility] Comment on above: Performed By: #### 4 [id number] #### [facility] [address] [place] [address] Specific gravity (U) [Rel density] 1.010 Invalid Interpretation Code 1.005-1.03 0 [facility] Comment on above: Performed By: #### 4 [id number] #### [facility] [address] [place] [address] Urobilinogen (U) [Mass/Vol] Negative Normal Negative [facility] Comment on above: Performed By: #### 4 [id number] #### [facility] [address] [place] [address] WBC Auto (Urine sed) [#/Area] 0-5 Normal 0-5 [facility] Comment on above: Performed By: #### 4 [id number] #### [facility] [address] [place] [address] Type of Urine collection method Clean Catch Normal [facility] Comment on above: Performed By: #### 4 [id number] #### [facility] [address] [place] [address] URINALYSISOrdered By: SYSTEM SYSTEM on 07-26-2024 Bilirubin Ql (U) Negative Normal Negativemg /dL [facility] UA Auto SS Clarity (U) Clear (07/26/24 5:10 PM) Normal Clear [facility] UA Auto SS Color (U) Light-Yellow 1 (07/26/24 5:10 PM) Normal Yellow [facility] UA Auto SS Comment on above: Interpretive Data: M icroscopic readings are only performed on those samples that meet specific criteria set forth by [facility]. Epithelial cells.squamous Auto (Urine sed) [#/Area] 0-2 graded/HPF Invalid Interpretation Code [facility] UA Auto SS Glucose Ql (U) Negative Normal Negativemg /dL [facility] UA Auto SS Hemoglobin Auto test strip (U) [Mass/Vol] 3+ mg/dL Invalid Interpretation Code Negativemg /dL [facility] UA Auto SS Ketones Auto test strip Ql (U) Negative Normal Negativemg /dL [facility] UA Auto SS Leukocyte esterase Auto test strip Ql (U) 75 Veronique/uL Veronique/uL Invalid Interpretation Code NegativeLe u/uL [facility] UA Auto SS Mucus Auto Ql (U) Negative Normal Negativegr aded/LPF [facility] UA Auto SS Nitrite Auto test strip Ql (U) Negative Normal Negativemg /dL [facility] UA Auto SS pH (U) 6.5 *NA* (07/26/24 5:10 PM) Invalid Interpretation Code 5.0 - 9.0 [facility] UA Auto SS Protein Ql (U) Negative Normal Negativemg /dL [facility] UA Auto SS RBC Ql (U) 4-20 graded/HPF Invalid Interpretation Code 0-3graded/ HPF [facility] UA Auto SS Specific gravity (U) [Rel density] 1.010 *NA* (07/26/24 5:10 PM) Invalid Interpretation Code 1.005 - 1.030 [facility] UA Auto SS Urobilinogen (U) [Mass/Vol] Negative Normal Negativemg /dL [facility] UA Auto SS WBC Auto (Urine sed) [#/Area] 0-5 graded/HPF Normal 0-5graded/ HPF [facility] UA Auto SS URINALYSISOrdered By: Sae ballesteros on 07-26-2024 UA Spec Desc Clean Catch (07/26/24 5:10 PM) Normal [facility] UA Auto SS Work Phone: eGFRon 07-26-2024 eGFR 42 mL/min/1.73 m2 Low >=59 [facility] Comment on above: Performed By: #### 1 [id number] #### [facility] [address] [place] [address] CT Head or Brain w/o Contras ton [...] Colon MD Transcribed by: OTONIEL Technologist: GURU [facility] CT Spine Cervical w/o Contra ston 07-25-2024 [...] MD Transcribed by: OTONIEL Technologist: GURU Ojeda [facility] XR Wrist 2 Views Righton XR [...] MD Transcribed by: OTONIEL Technologist: SAJAN Ojeda [facility] ED Clinical Summaryon 2024 ED Clinical Summary ED Clinical Summary [address] [address] ED Clinical Summary Person Information Name: JUDITH LAND [place] Age: 79 Years : 1945 Sex: Female Language: Italian PCP: Kavon Sams MD Marital Status: Visit [...] 07/24/2024 21:56:11 07/24/2024 21:56:11 07/24/2024 21:56:11 ADDRESS: [address] [place] [id number] PHYS DOC NOTES: MEDICAL INFORMATION: Prescriptions Given: New Medications [id number], [address], [place] [id number], [phone] acetaminophen-oxycodone (Percocet 5 mg-325 mg oral tablet) [...] day of procdure - afterwards. Refills: 0. hydrochlorothiazide-lisin opril (hydrochlorothiazide-jose alejandro nopril 25 mg-20 mg Tab) 2 Tablets By [...] up: With: Address: When: Kavon Sams [address] [facility], [address] [place] [phone] Business (1) In 3 days 07/27/2024 Comments: [...] and drug interactions with your pharmacist. Call [facility] or go to the nearest Emergency Department if you develop any new or worsening symptoms. With: Address: When: Supa Owen [address] [place], [place] [id number] [place] (1) In 3 days 07/27/2024 Comments: Call office tomorrow to arrange for short-term follow-up for your distal radius fracture. Take pain medication as prescribed. DIAGNOSIS: Accidental fall; Distal radius fracture; Wrist injury Normal [facility] ED Note-Physicianon 07-24-19 ED Note-Physician ED [...] Limb is neurovascularly intact after placement. Demarco Beaver DO Medical Decision Making 79-year-old female to [...] Owen In 3 days 07/27/2024 EST [address] [place] [address]- Business (1) Additional Instructions: Call office tomorrow to arrange for short-term follow-up for your distal radius fracture. Take pain medication as prescribed. 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 Normal [facility] Comment on above: Result Comment: Elec tronically Signed By: Demarco Beaver DO\.andreia\Date and Time Signed: 07/24/24 21:44 EST ED Patient Summaryon 025 ED Patient Summary ED Patient Summary [address] [address] Patient Discharge Instructions Person Information Name: JUDITH LAND Age: 79 Years Arrival Date: 07/24/2024 18:45:15 Discharge Diagnosis: Accidental fall; Distal radius fracture; Wrist injury Primary Care Physician: Kavon Sams MD Provider Information Primary Provider: Demarco Beaver DO Advanced Color Stripper:None The exam and treatment you received in the Emergency Department were for an urgent problem and are not intended as complete care. It is important that you follow up with a doctor, nurse practitioner, or physician???s assistant professor of anthropology for ongoing care. If your symptoms become worse or you do not improve as expected and you are unable to reach your usual health care provider, you should return to the Emergency Department. We are available 24 hours a day. JUDITH LAND has been given the following list of patient education materials, prescriptions and follow-up instructions: Follow-up Instructions: With: Address: When: Kavon Sams [address] [place] [address] [address] [place] [id number] Xiaoying (1) In 3 days 07/27/2024 Comments: Call [...] worsening symptoms. With: Address: When: Supa Owen [address] [place], [place] [id number] Xiaoying (1) In 3 days 07/27/2024 Comments: Call [...] opioids can be used to help relieve njzedhhn-jb-ldtyio pain and are often prescribed following a [...] up with your primary health care provider. david russ (more content not included)... Normal [facility] Pre-Arrival Noteon Pre-Arrival Note Pre-Arrival Note Pre-Arrival Summary Name: ELA Current Date: 07/24/2024 18:52:03 EST Gender: Female Date of : Age: 79 Pre-Arrival Type: EMS ETA: 07/24/2024 19:03:00 EST Primary Care Physician: Presenting Problem: fall; r wrist deformity, hit head; thinners Pre-Arrival User: Caden SAM, Jacquelyn Fontaine Referring Source: Location: [place] Completion Date/Time: 07/24/2024 18:33:00 [facility] Emergency Department Pre-Hospital Report Form ____ Vital Signs: Pre-Hospital Report: Treatment in Route: Response to Treatment: Misc. Issues: Normal [facility] Urine Cultureon 07-24-2024 Bacteria identified Cx Nom (U) Normal [facility] Comment on above: Performed By: #### C UU ####[facility] [id number] [place] [address] [facility] Urine cultureOrdered By: Cristian Sams on 07-24-2024 Bacteria identified Cx Nom (U) Urine culture [facility] Bacteria identified Cx Nom (U) Urine culture [facility] CNOVon 07-16-2024 CNOV Office Visit (NREUS2 ) ----- JUDITH LAND ([id number]) 1945 F Date Time Provider Department 07/16/24 3:00 PM CHERIE CEDENO NREUS2 During your visit today, we recorded the following information about you: Pulse Blood pressure 97/minute 149/71 Ga oBb MA 07/16/2024 5:27 PM Signed Reason for [...] Take 20 mg by mouth once daily. lisinopril-hydrochlorothi azide 20-25 mg per tablet Take 1 tablet [...] (more content not included)... Normal [facility] CNOVon 02-22-2024 CNOV Office Visit (NREUS2 ) ----- JUDITH LAND ([id number]) 1945 F Date Time Provider Department 02/22/24 3:00 PM CHERIE CEDENO NREUS2 During your visit today, we recorded the following information about you: Pulse Blood pressure 92/minute 133/73 Ga Bob MA 02/22/2024 4:46 PM Signed Reason for WROTF Tablet to not get completed: Patient wishes to abort because of stress/struggling or is interrupted by their supervisor rolling room. Cherie Cedeno PA-C 02/22/2024 4:46 PM Signed [...] some every day Dry mouth - please package pick up some OTC spray to help Please come [...] that she is going to travel to [place] to see her friends, which prior to [...] Take 20 mg by mouth once daily. lisinopril-hydrochlorothi azide 20-25 mg per tablet Take 1 tablet [...] (more content not included)... Normal [facility] CNOVon 01-14-2024 CNOV Office Visit (NREUS2 ) ----- JUDITH LAND ([id number]) 1945 F Date Time Provider Department 01/14/24 2:00 PM CHERIE CEDENO NRMIKES2 During your visit today, we recorded [...] Take 20 mg by mouth once daily. lisinopril-hydrochlorothi azide 20-25 mg per tablet Take 1 tablet [...] (more content not included)... Normal [facility] MR Cervical spine WO contras ton 10-07-2023 [...] lumbar spine wi (more content not included)... [facility] MR Lumbar spine WO contrasto n 10-07-2023 [...] are otherwise unremarkable. DIVISION OF RADIOLOGY Provider, [facility] - 10/07/2023 * * *Final [...] the cervical, thor (more content not included)... [facility] Radiology Study observation (narrative) [facility] MR Thoracic spine WO dann ton 10-07-2023 * * *Final Report* * [...] are otherwise unremarkable. DIVISION OF RADIOLOGY Provider, [facility] - 10/07/2023 * * *Final [...] spine without contrast. (more content not included)... [facility] No Panel Informationon 10-06 IMPRESSION: Degenerative changes [...] and assume there are 5 lumbar-type vertebrae. Machine Precision Etcher: PSCB Transcribe Date/Time: Oct 07 2023 12:07P Dictated by : YANETH SALDAÑA MD This examination was interpreted and the report reviewed and electronically signed by: YANETH SALDAÑA MD on Oct 07 2023 12:21PM [facility] DIVISION OF RADIOLOGY Radiology Study observation (narrative) [facility] No Panel InformationOrdered By: Ccf Provider on 10-07-2023 [facility] CBC W Auto Differential pane l (Bld)on 09-13-2023 Basophils (Bld) [#/Vol] 0.10 10*3/uL <0.11 k/uL [facility] Basophils/100 WBC (Bld) 1.3 % [facility] Differential cell count method Nom (Bld) Auto [facility] Eosinophils (Bld) [#/Vol] 0.67 10*3/uL High <0.46 k/uL [facility] Eosinophils/100 WBC (Bld) 8.4 % [facility] Erythrocyte distribution width (RBC) [Ratio] 14.1 % 11.5 - 15.0 % [facility] Hematocrit (Bld) [Volume fraction] 46.3 % High 36.0 - 46.0 % [facility] Hemoglobin (Bld) [Mass/Vol] 15.3 g/dL 11.5 - 15.5 g/dL [facility] Immature granulocytes (Bld) [#/Vol] <0.10 k/uL [facility] Immature granulocytes/100 WBC (Bld) 0.0 % [facility] Lymphocytes (Bld) [#/Vol] 3.14 10*3/uL 1.00 - 4.00 k/uL [facility] Lymphocytes/100 WBC (Bld) 39.3 % [facility] MCH (RBC) [Entitic mass] 31.4 pg 26.0 - 34.0 pg [facility] MCHC (RBC) [Mass/Vol] 33.0 g/dL 30.5 - 36.0 g/dL [facility] MCV (RBC) [Entitic vol] 94.9 fL 80.0 - 100.0 fL [facility] Monocytes (Bld) [#/Vol] 0.83 10*3/uL <0.87 k/uL [facility] Monocytes/100 WBC (Bld) 10.4 % [facility] Neutrophils (Bld) [#/Vol] 3.26 10*3/uL 1.45 - 7.50 k/uL [facility] Neutrophils/100 WBC (Bld) 40.6 % [facility] Nucleated RBC (Bld) [#/Vol] <0.01 k/uL [facility] Nucleated RBC/100 WBC (Bld) [Ratio] 0.0 /100 WBC [facility] Platelet mean volume (Bld) [Entitic vol] 11.7 fL 9.0 - 12.7 fL [facility] Platelets (Bld) [#/Vol] 296 10*3/uL 150 - 400 k/uL [facility] RBC (Bld) [#/Vol] 4.88 10*6/uL 3.90 - 5.20 m/uL [facility] WBC (Bld) [#/Vol] 8.00 10*3/uL 3.70 - 11.00 k/uL [facility] Comprehensive metabolic 2000 panelon 09-13-2023 Albumin [Mass/Vol] 4.3 g/dL 3.9 - 4.9 g/dL [facility] ALP [Catalytic activity/Vol] 92 U/L 34 - 123 U/L [facility] ALT [Catalytic activity/Vol] 14 U/L 7 - 38 U/L [facility] Anion gap [Moles/Vol] 13 mmol/L 9 - 18 mmol/L [facility] AST [Catalytic activity/Vol] 24 U/L 13 - 35 U/L [facility] Bilirubin [Mass/Vol] 0.3 mg/dL 0.2 - 1 .3 mg/dL [facility] Calcium [Mass/Vol] 11.0 mg/dL High 8.5 - 10. 2 mg/dL [facility] Chloride [Moles/Vol] 102 mmol/L 97 - 10 5 mmol/L [facility] CO2 [Moles/Vol] 25 mmol/L 22 - 30 mmol/L [facility] Creatinine [Mass/Vol] 0.95 mg/dL 0.58 - 0.96 mg/dL [facility] Estimated Glomerular Filtration Rate 62 mL/min/1.73m >=60 mL/min/1.7 3m [facility] Glucose [Mass/Vol] 84 mg/dL 74 - 99 mg/dL [facility] Potassium [Moles/Vol] 4.0 mmol/L 3.7 - 5.1 mmol/L [facility] Protein [Mass/Vol] 6.7 g/dL 6.3 - 8.0 g/dL [facility] Sodium [Moles/Vol] 140 mmol/L 136 - 144 mmol/L [facility] Urea nitrogen [Mass/Vol] 20 mg/dL 7 - 21 mg/dL [facility] ESR Westergren method (Bld) [Velocity]on 09-13-2023 ESR (Bld) [Velocity] 10 mm/h 0 - 20 mm/hr [facility] FOLATE SERUMon 09-13-2023 Folate [Mass/Vol] >4.7 ng/mL [facility] HOMOCYSTEINEon 09-13-2023 Homocysteine [Moles/Vol] 11.3 umol/L <15.1 umol/L [facility] HbA1c (Bld)on 09-13-2023 Average glucose Estimated from glycated hemoglobin (Bld) [Mass/Vol] 103 mg/dL [facility] HbA1c (Bld) [Mass fraction] 5.2 % 4.3 - 5.6 % [facility] TSH BLDon 09-13-2023 TSH Qn 0.911 m[IU]/L 0.270 - 4.200 mIU/L [facility] VITAMIN B12 BLOODon 09-13-19 Cobalamin (Vitamin B12) [Mass/Vol] 939 pg/mL 232 - 1,245 pg/mL [facility] CHEMISTRYOrdered By: SYSTEM SYSTEM on 07-16-2023 [...] High Sensitivity Troponin I Instructions For Use, BOLD Guidance, January 2018) Anion gap [Moles/Vol] 14 mmol/L [...] Chem eGFR 66 mL/min/1.73 m2 Normal >=59mL/min /1.73 m2 Remisol Chem Glucose [Mass/Vol] 87 mg/dL [...] High Sensitivity Troponin I Instructions For Use, BOLD Guidance, January 2018) Urea nitrogen [Mass/Vol] 20 mg/dL [...] Normal 80.0 - 100.0 fL Remisol Heme [place] Absolute 1.2 E9/L High 0.2 - 1.0 [...] [#/Area] 0-2 /HPF Normal 0-2/HPF [facility] UA Aut o SS Glucose Test strip (U) [Mass/Vol] Negative (07/16/23 12:49 PM) Normal Negative [facility] UA Auto SS Hemoglobin Ql (U) Negative (07/16/23 12:49 PM) Normal Negative [facility] UA Auto SS Ketones (U) [Mass/Vol] Negative (07/16/23 12:49 PM) Normal Negative [facility] UA Auto SS Orrick.plasma/Orrick. RBC (Bld) [Mass ratio] 0-3 /HPF Normal 0-3/HPF [facility] UA A uto SS Nitrite Ql (U) Negative (07/16/23 12:49 [...] [facility] UA Auto SS Urobilinogen Qn (U) 0.1938500 {Phoebe'U}/dL Normal 0.0 - 1.0 EU/dL [facility] [...] conjunction with clinical conditions of myocardial infarction. ([place] High Sensitivity Troponin I Instructions For Use, BOLD Guidance, January 2018) Troponin 183.20 pg/mL Invalid Interpretation [...] conjunction with clinical conditions of myocardial infarction. ([place] High Sensitivity Troponin I Instructions For Use, BOLD Guidance, January 2018) Troponin 116.80 pg/mL Invalid Interpretation [...] conjunction with clinical conditions of myocardial infarction. ([place] High Sensitivity Troponin I Instructions For Use, BOLD Guidance, January 2018) Lactic Acid Lvl 1.1 mmol/L [...] 96 mg/dL Normal 55 - 99 mg/dL [facility] POC Subsection Comment on above: Result Comment: Bonnie jamil RN/ POC Device SN [id number] Invalid Interpretation Code [facility] POC Subsection POC User ID [id number] 1 Invalid Interpretation Code [facility] POC Subsection POC Username JOSH GERONIMO Invalid Interpretation Code [facility] POC Subsection COAGULATIONOrdered By: Hoang Chris on 06-23-2023 aPTT Coag (PPP) [Time] 30.4 s Normal 25.1 - 36.5 second(s) [facility] Auto Coag Comment on above: Interpretive [...] the same coagulation reagent and instrumentation as [facility]. Currently there are no coagulation studies available worldwide for children to 14 days, and no normal ranges. Heparin therapeutic range (represented by Anti-Factor Xa activity of 0.2 - 0.4 U/mL) corresponds to PTT of 56.6 - 109.0 sec. INR Coag (PPP) [Relative time] 1.0 {INR} Invalid Interpretation Code [facility] Auto Coag Comment on above: Interpretive Data: I NR results are specifically intended to assess patients stabilized on long-term Anticoagulation therapy suggested INR s Less Intensive Anticoagulation 2.0 3.0 Conventional Range 3.0 4.5 PT Coag (PPP) [Time] 11.7 s Normal 9.4 - 1 2.5 second(s) [facility] Auto Coag Comment on above: Interpretive [...] the same coagulation reagent and instrumentation as [facility]. Currently there are no coagulation studies [...] HemeAutoSS Platelets (Bld) [#/Vol] 301.0 E9/L Normal 150. 0 - 500.0 E9/L [facility] HemeAutoSS RBC (Bld) [#/Vol] 4.4 E12/L Normal 4.3 - 5.9 E12/L [facility] HemeAutoSS WBC corrected for nucl RBC Auto (Bld) [#/Vol] 14.5 E9/L High 4.0 - 11.0 E9/L [facility] HemeAutoSS MICRO OTHER TESTSOrdered By: Hoang Chris on 06-23-2023 Rapid COV Int NEG Ctl Pass (06/23/23 2:12 AM) Normal [facility] Man Sero Rapid COV Int POS Ctl Pass (06/23/23 2:12 AM) Normal [facility] Man Sero SARS-CoV+SARS-CoV-2 (COVID-19) Ag IA.rapid Ql (Resp) Not Detected 11 (06/23/23 2:12 AM) Normal Not Detected [facility] Man Sero Comment on above: Interpretive Data: Bob melendez [employer] Veritor System for Rapid Detection of SARS-CoV-2 [...] For in vitro diagnostic use. In the [facility], only for use under an Emergency Use [...] [#/Area] 0-2 /HPF Normal 0-2/HPF [facility] UA Aut o SS Glucose Test strip (U) [Mass/Vol] Negative (06/23/23 3:01 AM) Normal Negative [facility] UA Auto SS Hemoglobin Ql (U) Negative (06/23/23 3:01 AM) Normal Negative [facility] UA Auto SS Ketones (U) [Mass/Vol] Negative (06/23/23 3:01 AM) Normal Negative [facility] UA Auto SS Orrick.plasma/Orrick. RBC (Bld) [Mass ratio] 0-3 /HPF Normal 0-3/HPF [facility] UA A uto SS Nitrite Ql (U) Negative (06/23/23 3:01 [...] [facility] UA Auto SS Urobilinogen Qn (U) 0.4382114 {Phoebe'U}/dL Normal 0.0 - 1.0 EU/dL [facility] UA Auto SS WBC Auto Ql (U) 1+ *ABN* (06/23/23 3:01 AM) Invalid Interpretation Code Negative [facility] UA Auto SS WBC LM.HPF (Urine sed) [#/Area] 6-15 /HPF Invalid Interpretation Code 0-5/HPF [facility] UA Auto SS Creatinine (Bld) [Mass/Vol]O rdered By: Cathie Gill on 05-15-2023 Creatinine [Mass/Vol] 1.0 mg/dL 0.6-1.3 [facility] Comment on above: ER/ESD physician is notified/shown all ISTAT results.Critical values may be confirmed by laboratory testing ifdeemed necessary by ER attending doctor. No Panel InformationOrdered By: Cathie Gill on 05-15-2023 Bedside Estimated GFR (eGFR) 58.023 [facility] BNPon 10-09-2022 Natriuretic peptide B (Bld) [Mass/Vol] 90.0 pg/mL Normal <=1,800.0 [facility] Comment on above: Performed By: #### M G, CMP, TSH, T7, BNP #### [facility] [address] [address] [address] Glenys Holly CBC AUTO DIFFon 10-09-2022 BASO # 0.1 103/ul Normal 0.0-0.1 [facility] Comment on above: Performed By: #### M G, CMP, TSH, T7, BNP #### [facility] [address] [place] [address] Dr. Glenys Holly Basophils/100 WBC (Bld) 1.0 % Normal 0.2-2.0 [facility] Comment on above: Performed By: #### M G, CMP, TSH, T7, BNP #### [facility] [address] [place] [address] Dr. Glenys Holly EO # 0.5 103/ul Normal 0.0-0.7 [facility] Comment on above: Performed By: #### M G, CMP, TSH, T7, BNP #### [facility] [address] [place] [address] Dr. Glenys Holly Eosinophils/100 WBC (Bld) 6.4 % Normal 0.9-7.0 [facility] Comment on above: Performed By: #### M G, CMP, TSH, T7, BNP #### [facility] [address] [place] [address] Dr. Glenys Holly Erythrocyte distribution width (RBC) [Ratio] 15.4 % Critically high 11.0-15.0 [facility] Comment on above: Performed By: #### M G, CMP, TSH, T7, BNP #### [facility] [address] [place] [address] Dr. Glenys Holly Hematocrit (Bld) [Volume fraction] 42.8 % Normal 36.0-48.0 [facility] Comment on above: Performed By: #### M G, CMP, TSH, T7, BNP #### [facility] [address] [place] [address] Dr. Glenys Holly Hemoglobin (Bld) [Mass/Vol] 14.1 g/dL Normal 12.0-16.0 [facility] Comment on above: Performed By: #### M G, CMP, TSH, T7, BNP #### [facility] [address] [place] [address] Dr. Glenys Holly IG # 0.01 10e3/ul Normal 0.00-0.03 [facility] Comment on above: Performed By: #### M G, CMP, TSH, T7, BNP #### [facility] [address] [place] [address] Dr. Glenys Holly IG % 0.1 % Normal 0.0-0.5 [facility] Comment on above: Performed By: #### M G, CMP, TSH, T7, BNP #### [facility] [address] [place] [address] Dr. Glenys Holly LYMPH # 3.3 103/ul Normal 1.2-3.8 [facility] Comment on above: Performed By: #### M G, CMP, TSH, T7, BNP #### [facility] [address] [place] [address] Dr. Glenys Holly Lymphocytes/100 WBC (Bld) 44.2 % Normal 20.5-60.0 [facility] Comment on above: Performed By: #### M G, CMP, TSH, T7, BNP #### [facility] [address] [place] [address] Dr. Glenys Holly MANUAL DIFF REQ NO Normal [facility] Comment on above: Performed By: #### M G, CMP, TSH, T7, BNP #### [facility] [address] [place] [address] Dr. Glenys Holly MCH (RBC) [Entitic mass] 30.3 pg Normal 26.7-34.0 [facility] Comment on above: Performed By: #### M G, CMP, TSH, T7, BNP #### [facility] [address] [place] [address] Dr. Glenys Holly MCHC (RBC) [Mass/Vol] 32.9 g/dL Normal 29.9-35.2 [facility] Comment on above: Performed By: #### M G, CMP, TSH, T7, BNP #### [facility] [address] [place] [address] Dr. Glenys Holly MCV (RBC) [Entitic vol] 92.0 fL Normal 81.0-99.0 [facility] Comment on above: Performed By: #### M G, CMP, TSH, T7, BNP #### [facility] [address] [place] [address] Dr. Glenys Holly MONO # 1.2 103/ul Critically high 0.3-0.8 [facility] Comment on above: Performed By: #### M G, CMP, TSH, T7, BNP #### [facility] [address] [address] [address] Glenys Holly Monocytes/100 WBC (Bld) 16.4 % Critically high 1.7-12. 0 [facility] Comment on above: Performed By: #### M G, CMP, TSH, T7, BNP #### [facility] [address] [place] [address] Dr. Glenys Holly NEUT # 2.4 103/ul Normal 1.4-6.5 [facility] Comment on above: Performed By: #### M G, CMP, TSH, T7, BNP #### [facility] [address] [place] [address] Dr. Glenys Holly Neutrophils/100 WBC (Bld) 31.9 % Critically low 43.0-75.0 [facility] Comment on above: Performed By: #### M G, CMP, TSH, T7, BNP #### [facility] [address] [place] [address] Dr. Glenys Holly Platelet mean volume (Bld) [Entitic vol] 10.3 fL Normal 9.5-13.5 [facility] Comment on above: Performed By: #### M G, CMP, TSH, T7, BNP #### [facility] [address] [place] [address] Dr. Glenys Holly PLT 379 103/ul Normal 150-450 [facility] Comment on above: Performed By: #### M G, CMP, TSH, T7, BNP #### [facility] [address] [place] [address] Dr. Glenys Holly RBC 4.65 106/ul Normal 4.20-5.40 [facility] Comment on above: Performed By: #### M G, CMP, TSH, T7, BNP #### [facility] [address] [address] [address] Glenys Holly WBC 7.4 103/ul Normal 4.0-11.0 [facility] Comment on above: Performed By: #### M G, CMP, TSH, T7, BNP #### [facility] [address] [address] [address] Glenys Holly FERRITINon 10-09-2022 Ferritin [Mass/Vol] 68.0 ng/mL Normal 8.0-252.0 [facility] Comment on above: Performed By: #### F ERR, IRON, VITAD ####[facility] [id number] [address]Dr. Glenys Holly FREE THYROXINE INDEX T7on FTI 3.10 Normal 1.30-4.50 [facility] Comment on above: Performed By: #### M G, CMP, TSH, T7, BNP #### [facility] [address] [place] [address] Dr. Glenys Holly T3U 36.0 % Normal 30.0-39.0 [facility] Comment on above: Performed By: #### M G, CMP, TSH, T7, BNP #### [facility] [address] [address] [address] Glenys Holly T4 [Mass/Vol] 8.60 ug/dL Normal 4.80-13.90 [facility] Comment on above: Performed By: #### M G, CMP, TSH, T7, BNP #### [facility] [address] [place] [address] Dr. Glenys Holly IRONon 10-09-2022 Iron [Mass/Vol] 52.0 ug/dL Normal 50.0-170.0 [facility] Comment on above: Performed By: #### F ERR, IRON, VITAD ####[facility] [id number] [address]Dr. Glenys Holly MAGNESIUMon 10-09-2022 Magnesium [Mass/Vol] 2.0 mg/dL Normal 1.8-2.4 [facility] Comment on above: Performed By: #### M G, CMP, TSH, T7, BNP #### [facility] [address] [place] [address] Dr. Glenys Holly PROF 14(COMP METB)on 023 Albumin [Mass/Vol] 3.5 g/dL Normal 3.4-5.0 [facility] Comment on above: Performed By: #### M G, CMP, TSH, T7, BNP #### [facility] [address] [address] [address] Glenys Holly Albumin/Globulin [Mass ratio] 1.0 {ratio} Normal [facility] Comment on above: Performed By: #### M G, CMP, TSH, T7, BNP #### [facility] [address] [address] [address] Glenys Holly ALP [Catalytic activity/Vol] 134 U/L Critically high 46-116 [facility] Comment on above: Performed By: #### M G, CMP, TSH, T7, BNP #### [facility] [address] [address] [address] Glenys Holly ALT [Catalytic activity/Vol] 34 U/L Normal 14-59 [facility] Comment on above: Performed By: #### M G, CMP, TSH, T7, BNP #### [facility] [address] [address] [address] Glenys Holly Anion gap [Moles/Vol] 8.8 mmol/L Normal [facility] Comment on above: Performed By: #### M G, CMP, TSH, T7, BNP #### [facility] [address] [address] [address] Glenys Holly AST [Catalytic activity/Vol] 19 U/L Normal 15-37 [facility] Comment on above: Performed By: #### M G, CMP, TSH, T7, BNP #### [facility] [address] [address] [address] Glenys Holly Bilirubin [Mass/Vol] 0.2 mg/dL Normal 0.2-1.0 [facility] Comment on above: Performed By: #### M G, CMP, TSH, T7, BNP #### [facility] [address] [address] [address] Glenys Holly Calcium [Mass/Vol] 10.6 mg/dL Critically high 8.5-10.1 [facility] Comment on above: Performed By: #### M G, CMP, TSH, T7, BNP #### [facility] [address] [place] [address] Dr. Glenys Holly Chloride [Moles/Vol] 105 mmol/L Normal 98-107 [facility] Comment on above: Performed By: #### M G, CMP, TSH, T7, BNP #### [facility] [address] [address] [address] Glenys Holly CO2 [Moles/Vol] 30.0 mmol/L Normal 21.0-32.0 [facility] Comment on above: Performed By: #### M G, CMP, TSH, T7, BNP #### [facility] [address] [place] [address] Dr. Glenys Holly Creatinine [Mass/Vol] 0.86 mg/dL Normal 0.55-1.02 [facility] Comment on above: Performed By: #### M G, CMP, TSH, T7, BNP #### [facility] [address] [place] [address] Dr. Glenys Holly EGFR-AF VINCENTIAN >60 Normal >=60 [facility] Comment on above: Performed By: #### M G, CMP, TSH, T7, BNP #### [facility] [address] [place] [address] Dr. Glenys Holly EGFR-NON AF VINCENTIAN >60 Normal >=60 [facility] Comment on above: Performed By: #### M G, CMP, TSH, T7, BNP #### [facility] [address] [place] [address] Dr. Glenys Holly Globulin (S) [Mass/Vol] 3.5 g/dL Normal [facility] Comment on above: Performed By: #### M G, CMP, TSH, T7, BNP #### [facility] [address] [place] [address] Dr. Glenys Holly Glucose [Mass/Vol] 99 mg/dL Normal 74-106 [facility] Comment on above: Performed By: #### M G, CMP, TSH, T7, BNP #### [facility] [address] [address] [address] Glenys Holly Potassium [Moles/Vol] 3.8 mmol/L Normal 3.5-5.1 [facility] Comment on above: Performed By: #### M G, CMP, TSH, T7, BNP #### [facility] [address] [place] [address] Dr. Glenys Holly Protein [Mass/Vol] 7.0 g/dL Normal 6.4-8.2 [facility] Comment on above: Performed By: #### M G, CMP, TSH, T7, BNP #### [facility] [address] [place] [address] Dr. Glenys Holly Sodium [Moles/Vol] 140 mmol/L Normal 136-145 [facility] Comment on above: Performed By: #### M G, CMP, TSH, T7, BNP #### [facility] [address] [place] [address] Dr. Glenys Holly Urea nitrogen [Mass/Vol] 25.0 mg/dL Critically high 7.0-18.0 [facility] Comment on above: Performed By: #### M G, CMP, TSH, T7, BNP #### [facility] [address] [place] [address] Dr. Glenys Holly Urea nitrogen/Creatinine [Mass ratio] 29.1 mg/mg Normal [facility] Comment on above: Performed By: #### M G, CMP, TSH, T7, BNP #### [facility] [address] [place] [address] Dr. Glenys Holly TSHon 10-09-2022 TSH 1.720 uIU/mL Normal 0.358-3.74 0 [facility] Comment on above: Performed By: #### M G, CMP, TSH, T7, BNP #### [facility] [address] [place] [address] Dr. Glenys Holly VITAMIN D 25 OHon 10-09-2022 VIT D 25-OH 89.3 ng/mL Normal [facility] Comment on above: Performed By: #### F ERR, IRON, VITAD ####[facility] [id number] [place], [place] [address]Ym. Glenys Holly VIT D RANGES SEE BELOW Normal [facility] Comment on above: Result Comment: <20 ng/mL Vit D deficient 20 - <30 ng/mL Vit D insufficient 30 - 100 ng/mL Vit D sufficient >100 ng/mL Potential Toxicity Performed By: #### F ERR, IRON, VITAD ####[facility] [id number] [place], [place] [address]Bf. Glenys Holly NM STRESS/REST MULTIon 05-24 NM STRESS/REST MULTI Patient: Shana LAND Exam Date: 05/24/2022 : 1945 Gender:F Ordering : DR KAVON SAMS . Admission #: [id number] Family : Order #: [id number] CLICK HERE TO VIEW EXAM RADIOLOGY REPORT [...] M.D. on 05/24/2022 at 16:02 Normal [facility] BNPon 05-10-2022 Natriuretic peptide B (Bld) [Mass/Vol] 1305.0 pg/mL Normal <=1,800.0 [facility] Comment on above: Performed By: #### M G, CMP, TSH, T7, BNP #### [facility] [address] [place] [address] Dr. Glenys Holly CBC AUTO DIFFon 05-10-2022 BASO # 0.0 103/ul Normal 0.0-0.1 [facility] Comment on above: Performed By: #### M G, CMP, TSH, T7, BNP #### [facility] [address] [place] [address] Dr. Glenys Holly Basophils/100 WBC (Bld) 0.3 % Normal 0.2-2.0 [facility] Comment on above: Performed By: #### M G, CMP, TSH, T7, BNP #### [facility] [address] [place] [address] Dr. Glenys Holly EO # 0.0 103/ul Normal 0.0-0.7 [facility] Comment on above: Performed By: #### M G, CMP, TSH, T7, BNP #### [facility] [address] [place] [address] Dr. Glenys Holly Eosinophils/100 WBC (Bld) 0.1 % Critically low 0.9-7.0 [facility] Comment on above: Performed By: #### M G, CMP, TSH, T7, BNP #### [facility] [address] [place] [address] Dr. Glenys Holly Erythrocyte distribution width (RBC) [Ratio] 15.1 % Critically high 11.0-15.0 [facility] Comment on above: Performed By: #### M G, CMP, TSH, T7, BNP #### [facility] [address] [place] [address] Dr. Glenys Holly Hematocrit (Bld) [Volume fraction] 42.9 % Normal 36.0-48.0 [facility] Comment on above: Performed By: #### M G, CMP, TSH, T7, BNP #### [facility] [address] [place] [address] Dr. Glenys Holly Hemoglobin (Bld) [Mass/Vol] 14.6 g/dL Normal 12.0-16.0 [facility] Comment on above: Performed By: #### M G, CMP, TSH, T7, BNP #### [facility] [address] [place] [address] Dr. Glenys Holly IG # 0.05 10e3/ul Critically high 0.00-0.03 [facility] Comment on above: Performed By: #### M G, CMP, TSH, T7, BNP #### [facility] [address] [place] [address] Dr. Glenys Holly IG % 0.7 % Critically high 0.0-0.5 [facility] Comment on above: Performed By: #### M G, CMP, TSH, T7, BNP #### [facility] [address] [place] [address] Dr. Glenys Holly LYMPH # 1.6 103/ul Normal 1.2-3.8 [facility] Comment on above: Performed By: #### M G, CMP, TSH, T7, BNP #### [facility] [address] [place] [address] Dr. Glenys Holly Lymphocytes/100 WBC (Bld) 20.4 % Critically low 20.5-60.0 [facility] Comment on above: Performed By: #### M G, CMP, TSH, T7, BNP #### [facility] [address] [place] [address] Dr. Glenys Holly MANUAL DIFF REQ NO Normal [facility] Comment on above: Performed By: #### M G, CMP, TSH, T7, BNP #### [facility] [address] [place] [address] Dr. Glenys Holly MCH (RBC) [Entitic mass] 29.9 pg Normal 26.7-34.0 [facility] Comment on above: Performed By: #### M G, CMP, TSH, T7, BNP #### [facility] [address] [place] [address] Dr. Glenys Holly MCHC (RBC) [Mass/Vol] 34.0 g/dL Normal 29.9-35.2 [facility] Comment on above: Performed By: #### M G, CMP, TSH, T7, BNP #### [facility] [address] [place] [address] Dr. Glenys Holly MCV (RBC) [Entitic vol] 87.9 fL Normal 81.0-99.0 [facility] Comment on above: Performed By: #### M G, CMP, TSH, T7, BNP #### [facility] [address] [place] [address] Dr. Glenys Holly MONO # 0.7 103/ul Normal 0.3-0.8 [facility] Comment on above: Performed By: #### M G, CMP, TSH, T7, BNP #### [facility] [address] [place] [address] Dr. Glenys Holly Monocytes/100 WBC (Bld) 9.5 % Normal 1.7-12.0 [facility] Comment on above: Performed By: #### M G, CMP, TSH, T7, BNP #### [facility] [address] [place] [address] Dr. Glenys Holly NEUT # 5.2 103/ul Normal 1.4-6.5 [facility] Comment on above: Performed By: #### M G, CMP, TSH, T7, BNP #### [facility] [address] [place] [address] Dr. Glenys Holly Neutrophils/100 WBC (Bld) 69.0 % Normal 43.0-75.0 [facility] Comment on above: Performed By: #### M G, CMP, TSH, T7, BNP #### [facility] [address] [place] [address] Dr. Glenys Holly Platelet mean volume (Bld) [Entitic vol] 11.2 fL Normal 9.5-13.5 [facility] Comment on above: Performed By: #### M G, CMP, TSH, T7, BNP #### [facility] [address] [place] [address] Dr. Glenys Holly PLT 349 103/ul Normal 150-450 [facility] Comment on above: Performed By: #### M G, CMP, TSH, T7, BNP #### [facility] [address] [address] [address] Glenys Holly RBC 4.88 106/ul Normal 4.20-5.40 [facility] Comment on above: Performed By: #### M G, CMP, TSH, T7, BNP #### [facility] [address] [address] [address] Glenys Holly WBC 7.6 103/ul Normal 4.0-11.0 [facility] Comment on above: Performed By: #### M G, CMP, TSH, T7, BNP #### [facility] [address] [address] [address] Glenys Holly PROF 14(COMP METB)on 022 Albumin [Mass/Vol] 3.3 g/dL Critically low 3.4-5.0 [facility] [place] [facility] Comment on above: Performed By: #### H STROPN, BNP, CMP ####[facility] [id number] [address]DrRatna Holly Albumin/Globulin [Mass ratio] 1.1 {ratio} Normal [facility] Comment on above: Performed By: #### H STROPN, BNP, CMP ####[facility] [address] [address]DrRatna Holly ALP [Catalytic activity/Vol] 78 U/L Normal 46-116 [facility] Comment on above: Performed By: #### H STROPN, BNP, CMP ####[facility] [address] [address]DrRatna Holly ALT [Catalytic activity/Vol] 10 U/L Critically low 14-59 [facility] Comment on above: Performed By: #### H STROPN, BNP, CMP ####[facility] [address] [address]DrRatna Holly Anion gap [Moles/Vol] 11.2 mmol/L Normal [facility] [place] [facility] Comment on above: Performed By: #### H STROPN, BNP, CMP ####[facility] [address] [address]Dr. Glenys Holly AST [Catalytic activity/Vol] 15 U/L Normal 15-37 [facility] Comment on above: Performed By: #### H STROPN, BNP, CMP ####[facility] [address] [address]Dr. Glenys Holly Bilirubin [Mass/Vol] 0.4 mg/dL Normal 0.2-1.0 [facility] Comment on above: Performed By: #### H STROPN, BNP, CMP ####[facility] [address] [address]Dr. Glenys Holly Calcium [Mass/Vol] 8.9 mg/dL Normal 8.5-10.1 [facility] Comment on above: Performed By: #### H STROPN, BNP, CMP ####[facility] [id number] [place], [place] [address]Dr. Glenys Holly Chloride [Moles/Vol] 98 mmol/L Normal 98-107 [facility] Comment on above: Performed By: #### H STROPN, BNP, CMP ####[facility] [address] [place], [place] [address]Dr. Glenys Holly CO2 [Moles/Vol] 31.1 mmol/L Normal 21.0-32.0 [facility] Comment on above: Performed By: #### H STROPN, BNP, CMP ####[facility] [address] [address]Dr. Glenys Holly Creatinine [Mass/Vol] 1.15 mg/dL Critically high 0.55-1.02 [facility] Comment on above: Performed By: #### H STROPN, BNP, CMP ####[facility] [address] [address]Dr. Glenys Holly EGFR-AF VINCENTIAN 56 mL/min/1.73m2 Critically low >=60 [facility] Comment on above: Performed By: #### H STROPN, BNP, CMP ####[facility] [address] [address]Dr. Glenys Holly EGFR-NON AF VINCENTIAN 46 mL/min/1.73m2 Critically low >=60 [facility] Comment on above: Performed By: #### H STROPN, BNP, CMP ####[facility] [address] [address]Dr. Glenys Holly Globulin (S) [Mass/Vol] 3.0 g/dL Normal [facility] Comment on above: Performed By: #### H STROPN, BNP, CMP ####[facility] [address] [address]Dr. Glenys Holly Glucose [Mass/Vol] 107 mg/dL Critically high 74-106 [facility] Comment on above: Performed By: #### H STROPN, BNP, CMP ####[facility] [address] [address]Dr. Glenys Holly Potassium [Moles/Vol] 3.3 mmol/L Critically low 3.5-5.1 [facility] Comment on above: Performed By: #### H STROPN, BNP, CMP ####[facility] [address] [address]Dr. Glenys Holly Protein [Mass/Vol] 6.3 g/dL Critically low 6.4-8.2 [facility] [place] [facility] Comment on above: Performed By: #### H STROPN, BNP, CMP ####[facility] [address] [address]Dr. Glenys Holly Sodium [Moles/Vol] 137 mmol/L Normal 136-145 [facility] Comment on above: Performed By: #### H STROPN, BNP, CMP ####[facility] [address] [address]Dr. Glenys Holly Urea nitrogen [Mass/Vol] 29.0 mg/dL Critically high 7.0-18.0 [facility] Comment on above: Performed By: #### H STROPN, BNP, CMP ####[facility] [address] [address]Dr. Glenys Holly Urea nitrogen/Creatinine [Mass ratio] 25.2 mg/mg Normal [facility] Comment on above: Performed By: #### H STROPN, BNP, CMP ####[facility] [address] [address]Dr. Glenys Holly TROPONIN, HIGH SENSITIVITYon 05-10-2022 HSTROP 50.5 pg/mL Normal 4.0-51.3 [facility] Comment on above: Result Comment: CUT- OFF POINTS HAVE BEEN ESTABLISHED BASED ON THE FOURTH UNIVERSAL DEFINITIONS OF MYOCARDIAL INFARCTION. THE UPPER REFERENCE LIMIT (URL) OF TROPONIN, DEFINED THE 99TH PERCENTILE OF cTnI DISTRIBUTION IN A REFERENCE POPULATION, HAS BEEN CONFIRMED THE DECISION THRESHOLD FOR IN DIAGNOSIS. Performed By: #### H STROPN, BNP, CMP ####[facility] [id number] [id number][address] Glenys Holly XR CHEST 2 Von 05-10-2022 [...] RAMIRO SPENCER Date: 2022-05-10 08:10 Normal [facility] BNPon 05-09-2022 Natriuretic peptide B (Bld) [Mass/Vol] 1975.0 pg/mL Critically high <=1,800.0 [facility] Comment on above: Performed By: #### M G, CMP, TSH, T7, BNP #### [facility] [address] [address] [address] Glenys Holly CBC AUTO DIFFon 05-09-2022 BASO # 0.0 103/ul Normal 0.0-0.1 [facility] Comment on above: Performed By: #### M G, CMP, TSH, T7, BNP #### [facility] [address] [place] [address] Dr. Glenys Holly Basophils/100 WBC (Bld) 0.4 % Normal 0.2-2.0 [facility] Comment on above: Performed By: #### M G, CMP, TSH, T7, BNP #### [facility] [address] [place] [address] Dr. Glenys Holly EO # 0.0 103/ul Normal 0.0-0.7 [facility] Comment on above: Performed By: #### M G, CMP, TSH, T7, BNP #### [facility] [address] [place] [address] Dr. Glenys Holly Eosinophils/100 WBC (Bld) 0.0 % Critically low 0.9-7.0 [facility] Comment on above: Performed By: #### M G, CMP, TSH, T7, BNP #### [facility] [address] [place] [address] Dr. Glenys Holly Erythrocyte distribution width (RBC) [Ratio] 15.2 % Critically high 11.0-15.0 [facility] Comment on above: Performed By: #### M G, CMP, TSH, T7, BNP #### [facility] [address] [place] [address] Dr. Glenys Holly Hematocrit (Bld) [Volume fraction] 41.7 % Normal 36.0-48.0 [facility] Comment on above: Performed By: #### M G, CMP, TSH, T7, BNP #### [facility] [address] [place] [address] Dr. Glenys Holly Hemoglobin (Bld) [Mass/Vol] 14.1 g/dL Normal 12.0-16.0 [facility] Comment on above: Performed By: #### M G, CMP, TSH, T7, BNP #### [facility] [address] [place] [address] Dr. Glenys Holly IG # 0.12 10e3/ul Critically high 0.00-0.03 [facility] Comment on above: Performed By: #### M G, CMP, TSH, T7, BNP #### [facility] [address] [place] [address] Dr. Glenys Holly IG % 1.2 % Critically high 0.0-0.5 [facility] Comment on above: Performed By: #### M G, CMP, TSH, T7, BNP #### [facility] [address] [place] [address] Dr. Glenys Holly LYMPH # 1.6 103/ul Normal 1.2-3.8 [facility] Comment on above: Performed By: #### M G, CMP, TSH, T7, BNP #### [facility] [address] [place] [address] Dr. Glenys Holly Lymphocytes/100 WBC (Bld) 16.0 % Critically low 20.5-60.0 [facility] Comment on above: Performed By: #### M G, CMP, TSH, T7, BNP #### [facility] [address] [place] [address] Dr. Glenys Holly MANUAL DIFF REQ NO Normal [facility] Comment on above: Performed By: #### M G, CMP, TSH, T7, BNP #### [facility] [address] [place] [address] Dr. Glenys Holly MCH (RBC) [Entitic mass] 30.0 pg Normal 26.7-34.0 [facility] Comment on above: Performed By: #### M G, CMP, TSH, T7, BNP #### [facility] [address] [place] [address] Dr. Glenys Holly MCHC (RBC) [Mass/Vol] 33.8 g/dL Normal 29.9-35.2 [facility] Comment on above: Performed By: #### M G, CMP, TSH, T7, BNP #### [facility] [address] [place] [address] Dr. Glenys Holly MCV (RBC) [Entitic vol] 88.7 fL Normal 81.0-99.0 [facility] Comment on above: Performed By: #### M G, CMP, TSH, T7, BNP #### [facility] [address] [address] [address] Glenys Holly MONO # 1.3 103/ul Critically high 0.3-0.8 [facility] Comment on above: Performed By: #### M G, CMP, TSH, T7, BNP #### [facility] [address] [place] [address] Dr. Glenys Holly Monocytes/100 WBC (Bld) 13.2 % Critically high 1.7-12. 0 [facility] Comment on above: Performed By: #### M G, CMP, TSH, T7, BNP #### [facility] [address] [address] [address] Glenys Holly NEUT # 6.8 103/ul Critically high 1.4-6.5 [facility] Comment on above: Performed By: #### M G, CMP, TSH, T7, BNP #### [facility] [address] [place] [address] Dr. Glenys Holly Neutrophils/100 WBC (Bld) 69.2 % Normal 43.0-75.0 [facility] Comment on above: Performed By: #### M G, CMP, TSH, T7, BNP #### [facility] [address] [place] [address] Dr. Glenys Holly Platelet mean volume (Bld) [Entitic vol] 11.6 fL Normal 9.5-13.5 [facility] Comment on above: Performed By: #### M G, CMP, TSH, T7, BNP #### [facility] [address] [place] [address] Dr. Glenys Holly PLT 329 103/ul Normal 150-450 [facility] Comment on above: Performed By: #### M G, CMP, TSH, T7, BNP #### [facility] [address] [place] [address] Dr. Glenys Holly RBC 4.70 106/ul Normal 4.20-5.40 [facility] Comment on above: Performed By: #### M G, CMP, TSH, T7, BNP #### [facility] [address] [place] [address] Dr. Glenys Holly WBC 9.9 103/ul Normal 4.0-11.0 [facility] Comment on above: Performed By: #### M G, CMP, TSH, T7, BNP #### [facility] [address] [place] [address] Dr. Glenys Holly PROF 14(COMP METB)on 022 Albumin [Mass/Vol] 3.0 g/dL Critically low 3.4-5.0 [facility] Comment on above: Performed By: #### M G, CMP, TSH, T7, BNP #### [facility] [address] [place] [address] Dr. Glenys Holly Albumin/Globulin [Mass ratio] 1.1 {ratio} Normal [facility] Comment on above: Performed By: #### M G, CMP, TSH, T7, BNP #### [facility] [address] [place] [address] Dr. Glenys Holly ALP [Catalytic activity/Vol] 78 U/L Normal 46-116 [facility] Comment on above: Performed By: #### M G, CMP, TSH, T7, BNP #### [facility] [address] [place] [address] Dr. Glenys Holly ALT [Catalytic activity/Vol] 10 U/L Critically low 14-59 [facility] Comment on above: Performed By: #### M G, CMP, TSH, T7, BNP #### [facility] [address] [place] [address] Dr. Glenys Holly Anion gap [Moles/Vol] 9.6 mmol/L Normal [facility] Comment on above: Performed By: #### M G, CMP, TSH, T7, BNP #### [facility] [address] [place] [address] Dr. Glenys Holly AST [Catalytic activity/Vol] 18 U/L Normal 15-37 [facility] Comment on above: Performed By: #### M G, CMP, TSH, T7, BNP #### [facility] [address] [place] [address] Dr. Glenys Holly Bilirubin [Mass/Vol] 0.3 mg/dL Normal 0.2-1.0 [facility] Comment on above: Performed By: #### M G, CMP, TSH, T7, BNP #### [facility] [address] [address] [address] Glenys Holly Calcium [Mass/Vol] 9.1 mg/dL Normal 8.5-10.1 [facility] Comment on above: Performed By: #### M G, CMP, TSH, T7, BNP #### [facility] [address] [address] [address] Glenys Holly Chloride [Moles/Vol] 102 mmol/L Normal 98-107 [facility] Comment on above: Performed By: #### M G, CMP, TSH, T7, BNP #### [facility] [address] [place] [address] Dr. Glenys Holly CO2 [Moles/Vol] 30.3 mmol/L Normal 21.0-32.0 [facility] Comment on above: Performed By: #### M G, CMP, TSH, T7, BNP #### [facility] [address] [place] [address] Dr. Glenys Holly Creatinine [Mass/Vol] 0.83 mg/dL Normal 0.55-1.02 [facility] Comment on above: Performed By: #### M G, CMP, TSH, T7, BNP #### [facility] [address] [place] [address] Dr. Glenys Holly EGFR-AF VINCENTIAN >60 Normal >=60 [facility] Comment on above: Performed By: #### M G, CMP, TSH, T7, BNP #### [facility] [address] [place] [address] Dr. Glenys Holly EGFR-NON AF VINCENTIAN >60 Normal >=60 [facility] Comment on above: Performed By: #### M G, CMP, TSH, T7, BNP #### [facility] [address] [place] [address] Dr. Glenys Holly Globulin (S) [Mass/Vol] 2.8 g/dL Normal T [facility] Comment on above: Performed By: #### M G, CMP, TSH, T7, BNP #### [facility] [address] [address] [address] Glenys Holly Glucose [Mass/Vol] 105 mg/dL Normal 74-106 [facility] Comment on above: Performed By: #### M G, CMP, TSH, T7, BNP #### [facility] [address] [address] [address] Glenys Holly Potassium [Moles/Vol] 2.9 mmol/L Critically low 3.5-5.1 [facility] Comment on above: Performed By: #### M G, CMP, TSH, T7, BNP #### [facility] [address] [address] [address] Glenys Holly Protein [Mass/Vol] 5.8 g/dL Critically low 6.4-8.2 [facility] Comment on above: Performed By: #### M G, CMP, TSH, T7, BNP #### [facility] [address] [address] [address] Glenys Holly Sodium [Moles/Vol] 138 mmol/L Normal 136-145 [facility] Comment on above: Performed By: #### M G, CMP, TSH, T7, BNP #### [facility] [address] [address] [address] Glenys Holly Urea nitrogen [Mass/Vol] 21.0 mg/dL Critically high 7.0-18.0 [facility] Comment on above: Performed By: #### M G, CMP, TSH, T7, BNP #### [facility] [address] [address] [address] Glenys Holly Urea nitrogen/Creatinine [Mass ratio] 25.3 mg/mg Normal [facility] Comment on above: Performed By: #### M G, CMP, TSH, T7, BNP #### [facility] [address] [place] [address] Dr. Glenys Holly TROPONIN, HIGH SENSITIVITYon 05-09-2022 HSTROP 49.8 pg/mL Normal 4.0-51.3 [facility] Comment on above: Result Comment: CUT- OFF POINTS HAVE BEEN ESTABLISHED BASED ON THE FOURTH UNIVERSAL DEFINITIONS OF MYOCARDIAL INFARCTION. THE UPPER REFERENCE LIMIT (URL) OF TROPONIN, DEFINED THE 99TH PERCENTILE OF cTnI DISTRIBUTION IN A REFERENCE POPULATION, HAS BEEN CONFIRMED THE DECISION THRESHOLD FOR IN DIAGNOSIS. Performed By: #### M G, CMP, TSH, T7, BNP #### [facility] [address] [place] [address] Dr. Glenys Holly BNPon 05-08-2022 Natriuretic peptide B (Bld) [Mass/Vol] 2723.0 pg/mL Critically high <=1,800.0 [facility] Comment on above: Performed By: #### C MP, HSTROPN, BNP ####[facility] [id number] [address]Dr. Glenys Holly CBC AUTO DIFFon 05-08-2022 BASO # 0.0 103/ul Normal 0.0-0.1 [facility] Comment on above: Performed By: #### M G, CMP, TSH, T7, BNP #### [facility] [address] [place] [address] Dr. Glenys Holly Basophils/100 WBC (Bld) 0.2 % Normal 0.2-2.0 [facility] Comment on above: Performed By: #### M G, CMP, TSH, T7, BNP #### [facility] [address] [place] [address] Dr. Glenys Holly EO # 0.0 103/ul Normal 0.0-0.7 [facility] Comment on above: Performed By: #### M G, CMP, TSH, T7, BNP #### [facility] [address] [place] [address] Dr. Glenys Holly Eosinophils/100 WBC (Bld) 0.1 % Critically low 0.9-7.0 [facility] Comment on above: Performed By: #### M G, CMP, TSH, T7, BNP #### [facility] [address] [place] [address] Dr. Glenys Holly Erythrocyte distribution width (RBC) [Ratio] 15.9 % Critically high 11.0-15.0 [facility] Comment on above: Performed By: #### M G, CMP, TSH, T7, BNP #### [facility] [address] [place] [address] Dr. Glenys Holly Hematocrit (Bld) [Volume fraction] 38.0 % Normal 36.0-48.0 [facility] Comment on above: Performed By: #### M G, CMP, TSH, T7, BNP #### [facility] [address] [place] [address] Dr. Glenys Holly Hemoglobin (Bld) [Mass/Vol] 12.5 g/dL Normal 12.0-16.0 [facility] Comment on above: Performed By: #### M G, CMP, TSH, T7, BNP #### [facility] [address] [place] [address] Dr. Glenys Holly IG # 0.17 10e3/ul Critically high 0.00-0.03 [facility] Comment on above: Performed By: #### M G, CMP, TSH, T7, BNP #### [facility] [address] [place] [address] Dr. Glenys Holly IG % 1.1 % Critically high 0.0-0.5 [facility] Comment on above: Performed By: #### M G, CMP, TSH, T7, BNP #### [facility] [address] [place] [address] Dr. Glenys Holly LYMPH # 1.0 103/ul Critically low 1.2-3.8 [facility] Comment on above: Performed By: #### M G, CMP, TSH, T7, BNP #### [facility] [address] [place] [address] Dr. Glenys Holly Lymphocytes/100 WBC (Bld) 6.2 % Critically low 20.5-60.0 [facility] Comment on above: Performed By: #### M G, CMP, TSH, T7, BNP #### [facility] [address] [place] [address] Dr. Glenys Holly MANUAL DIFF REQ NO Normal [facility] Comment on above: Performed By: #### M G, CMP, TSH, T7, BNP #### [facility] [address] [place] [address] Dr. Glenys Holly MCH (RBC) [Entitic mass] 30.1 pg Normal 26.7-34.0 [facility] Comment on above: Performed By: #### M G, CMP, TSH, T7, BNP #### [facility] [address] [place] [address] Dr. Glenys Holly MCHC (RBC) [Mass/Vol] 32.9 g/dL Normal 29.9-35.2 [facility] Comment on above: Performed By: #### M G, CMP, TSH, T7, BNP #### [facility] [address] [place] [address] Dr. Glenys Holly MCV (RBC) [Entitic vol] 91.6 fL Normal 81.0-99.0 [facility] Comment on above: Performed By: #### M G, CMP, TSH, T7, BNP #### [facility] [address] [place] [address] Dr. Glenys Holly MONO # 0.8 103/ul Normal 0.3-0.8 [facility] Comment on above: Performed By: #### M G, CMP, TSH, T7, BNP #### [facility] [address] [place] [address] Dr. Glenys Holly Monocytes/100 WBC (Bld) 5.2 % Normal 1.7-12.0 [facility] Comment on above: Performed By: #### M G, CMP, TSH, T7, BNP #### [facility] [address] [place] [address] Dr. Glenys Holly NEUT # 14.0 103/ul Critically high 1.4-6.5 [facility] Comment on above: Performed By: #### M G, CMP, TSH, T7, BNP #### [facility] [address] [place] [address] Dr. Glenys Holly Neutrophils/100 WBC (Bld) 87.2 % Critically high 43.0-75.0 [facility] Comment on above: Performed By: #### M G, CMP, TSH, T7, BNP #### [facility] [address] [place] [address] Dr. Glenys Holly Platelet mean volume (Bld) [Entitic vol] 11.7 fL Normal 9.5-13.5 [facility] Comment on above: Performed By: #### M G, CMP, TSH, T7, BNP #### [facility] [address] [place] [address] Dr. Glenys Holly PLT 285 103/ul Normal 150-450 [facility] Comment on above: Performed By: #### M G, CMP, TSH, T7, BNP #### [facility] [address] [place] [address] Dr. Glenys Holly RBC 4.15 106/ul Critically low 4.20-5.40 [facility] Comment on above: Performed By: #### M G, CMP, TSH, T7, BNP #### [facility] [address] [place] [address] Dr. Glenys Holly WBC 16.0 103/ul Critically high 4.0-11.0 [facility] Comment on above: Performed By: #### M G, CMP, TSH, T7, BNP #### [facility] [address] [place] [address] Dr. Glenys Holly PROF 14(COMP METB)on 022 Albumin [Mass/Vol] 2.7 g/dL Critically low 3.4-5.0 [facility] Comment on above: Performed By: #### C MP, HSTROPN, BNP #### [facility] [address] [place] [address] Dr. Glenys Holly Albumin/Globulin [Mass ratio] 1.0 {ratio} Normal [facility] Comment on above: Performed By: #### C MP, HSTROPN, BNP #### [facility] [address] [place] [address] Dr. Glenys Holly ALP [Catalytic activity/Vol] 73 U/L Normal 46-116 [facility] Comment on above: Performed By: #### C MP, HSTROPN, BNP #### [facility] [address] [place] [address] Dr. Glenys Holly ALT [Catalytic activity/Vol] 11 U/L Critically low 14-59 [facility] Comment on above: Performed By: #### C MP, HSTROPN, BNP #### [facility] [address] [place] [address] Dr. Glenys Holly Anion gap [Moles/Vol] 10.5 mmol/L Normal [facility] Comment on above: Performed By: #### C MP, HSTROPN, BNP #### [facility] [address] [place] [address] Dr. Glenys Holly AST [Catalytic activity/Vol] 21 U/L Normal 15-37 [facility] Comment on above: Performed By: #### C MP, HSTROPN, BNP #### [facility] [address] [place] [address] Dr. Glenys Holly Bilirubin [Mass/Vol] 0.3 mg/dL Normal 0.2-1.0 [facility] Comment on above: Performed By: #### C MP, HSTROPN, BNP #### [facility] [address] [place] [address] Dr. Glenys Holly Calcium [Mass/Vol] 8.6 mg/dL Normal 8.5-10.1 [facility] Comment on above: Performed By: #### C MP, HSTROPN, BNP #### [facility] [address] [place] [address] Dr. Glenys Holly Chloride [Moles/Vol] 106 mmol/L Normal 98-107 [facility] Comment on above: Performed By: #### C MP, HSTROPN, BNP #### [facility] [address] [place] [address] Dr. Glenys Holly CO2 [Moles/Vol] 29.0 mmol/L Normal 21.0-32.0 [facility] Comment on above: Performed By: #### C MP, HSTROPN, BNP #### [facility] [address] [place] [address] Dr. Glenys Holly Creatinine [Mass/Vol] 0.88 mg/dL Normal 0.55-1.02 [facility] Comment on above: Performed By: #### C MP, HSTROPN, BNP #### [facility] [address] [address] [address] Glenys Holly EGFR-AF VINCENTIAN >60 Normal >=60 [facility] Comment on above: Performed By: #### C MP, HSTROPN, BNP #### [facility] [address] [address] [address] Glenys Holly EGFR-NON AF VINCENTIAN >60 Normal >=60 [facility] Comment on above: Performed By: #### C MP, HSTROPN, BNP #### [facility] [address] [address] [address] Glenys Holly Globulin (S) [Mass/Vol] 2.6 g/dL Normal [facility] Comment on above: Performed By: #### C MP, HSTROPN, BNP #### [facility] [address] [place] [address] Dr. Glenys Holly Glucose [Mass/Vol] 116 mg/dL Critically high 74-106 [facility] Comment on above: Performed By: #### C MP, HSTROPN, BNP #### [facility] [address] [address] [address] Glenys Holly Potassium [Moles/Vol] 3.5 mmol/L Normal 3.5-5.1 [facility] Comment on above: Performed By: #### C MP, HSTROPN, BNP #### [facility] [address] [address] [address] Glenys Holly Protein [Mass/Vol] 5.3 g/dL Critically low 6.4-8.2 [facility] Comment on above: Performed By: #### C MP, HSTROPN, BNP #### [facility] [address] [address] [address] Glenys Holly Sodium [Moles/Vol] 142 mmol/L Normal 136-145 [facility] Comment on above: Performed By: #### C MP, HSTROPN, BNP #### [facility] [address] [address] [address] Glenys Holly Urea nitrogen [Mass/Vol] 23.0 mg/dL Critically high 7.0-18.0 [facility] Comment on above: Performed By: #### C MP, HSTROPN, BNP #### [facility] [address] [address] [address] Glenys Holly Urea nitrogen/Creatinine [Mass ratio] 26.1 mg/mg Normal [facility] Comment on above: Performed By: #### C MP, HSTROPN, BNP #### [facility] [address] [address] [address] Glenys Holly TROPONIN, HIGH SENSITIVITYon 05-08-2022 HSTROP 60.8 pg/mL Critically high 4.0-51.3 [facility] Comment on above: Result Comment: CUT- OFF POINTS HAVE BEEN ESTABLISHED BASED ON THE FOURTH UNIVERSAL DEFINITIONS OF MYOCARDIAL INFARCTION. THE UPPER REFERENCE LIMIT (URL) OF TROPONIN, DEFINED THE 99TH PERCENTILE OF cTnI DISTRIBUTION IN A REFERENCE POPULATION, HAS BEEN CONFIRMED THE DECISION THRESHOLD FOR IN DIAGNOSIS. Performed By: #### C MP, HSTROPN, BNP ####[facility] [id number] [address]Dr. Glenys Holly BNPon 05-07-2022 Natriuretic peptide B (Bld) [Mass/Vol] 1476.0 pg/mL Normal <=1,800.0 [facility] Comment on above: Performed By: #### C MP, HSTROPN, BNP ####[facility] [id number] [address]Dr. Glenys Holly CBC AUTO DIFFon 05-07-2022 BASO # 0.0 103/ul Normal 0.0-0.1 [facility] Comment on above: Performed By: #### M G, CMP, TSH, T7, BNP #### [facility] [address] [address] [address] Glenys Holly Basophils/100 WBC (Bld) 0.1 % Critically low 0.2-2.0 [facility] Comment on above: Performed By: #### M G, CMP, TSH, T7, BNP #### [facility] [address] [address] [address] Glenys Holly EO # 0.0 103/ul Normal 0.0-0.7 [facility] Comment on above: Performed By: #### M G, CMP, TSH, T7, BNP #### [facility] [address] [place] [address] Dr. Glenys Holly Eosinophils/100 WBC (Bld) 0.0 % Critically low 0.9-7.0 [facility] Comment on above: Performed By: #### M G, CMP, TSH, T7, BNP #### [facility] [address] [place] [address] Dr. Glenys Holly Erythrocyte distribution width (RBC) [Ratio] 16.3 % Critically high 11.0-15.0 [facility] Comment on above: Performed By: #### M G, CMP, TSH, T7, BNP #### [facility] [address] [place] [address] Dr. Glenys Holly Hematocrit (Bld) [Volume fraction] 34.1 % Critically low 36.0-48.0 [facility] Comment on above: Performed By: #### M G, CMP, TSH, T7, BNP #### [facility] [address] [place] [address] Dr. Glenys Holly Hemoglobin (Bld) [Mass/Vol] 11.2 g/dL Critically low 12.0-16.0 [facility] Comment on above: Performed By: #### M G, CMP, TSH, T7, BNP #### [facility] [address] [place] [address] Dr. Glenys Holly IG # 0.22 10e3/ul Critically high 0.00-0.03 [facility] Comment on above: Performed By: #### M G, CMP, TSH, T7, BNP #### [facility] [address] [place] [address] Dr. Glenys Holly IG % 1.0 % Critically high 0.0-0.5 [facility] Comment on above: Performed By: #### M G, CMP, TSH, T7, BNP #### [facility] [address] [place] [address] Dr. Glenys Holly LYMPH # 1.3 103/ul Normal 1.2-3.8 [facility] Comment on above: Performed By: #### M G, CMP, TSH, T7, BNP #### [facility] [address] [place] [address] Dr. Glenys Holly Lymphocytes/100 WBC (Bld) 6.0 % Critically low 20.5-60.0 [facility] Comment on above: Performed By: #### M G, CMP, TSH, T7, BNP #### [facility] [address] [place] [address] Dr. Glenys Holly MANUAL DIFF REQ NO Normal [facility] Comment on above: Performed By: #### M G, CMP, TSH, T7, BNP #### [facility] [address] [place] [address] Dr. Glensy Holly MCH (RBC) [Entitic mass] 30.7 pg Normal 26.7-34.0 [facility] Comment on above: Performed By: #### M G, CMP, TSH, T7, BNP #### [facility] [address] [place] [address] Dr. Glenys Holly MCHC (RBC) [Mass/Vol] 32.8 g/dL Normal 29.9-35.2 [facility] Comment on above: Performed By: #### M G, CMP, TSH, T7, BNP #### [facility] [address] [place] [address] Dr. Glenys Holly MCV (RBC) [Entitic vol] 93.4 fL Normal 81.0-99.0 [facility] Comment on above: Performed By: #### M G, CMP, TSH, T7, BNP #### [facility] [address] [place] [address] Dr. Glenys Holly MONO # 1.1 103/ul Critically high 0.3-0.8 [facility] Comment on above: Performed By: #### M G, CMP, TSH, T7, BNP #### [facility] [address] [place] [address] Dr. Glenys Holly Monocytes/100 WBC (Bld) 4.8 % Normal 1.7-12.0 [facility] Comment on above: Performed By: #### M G, CMP, TSH, T7, BNP #### [facility] [address] [address] [address] Glenys Holly NEUT # 19.4 103/ul Critically high 1.4-6.5 [facility] Comment on above: Performed By: #### M G, CMP, TSH, T7, BNP #### [facility] [address] [address] [address] Glenys Holly Neutrophils/100 WBC (Bld) 88.1 % Critically high 43.0-75.0 [facility] Comment on above: Performed By: #### M G, CMP, TSH, T7, BNP #### [facility] [address] [place] [address] Dr. Glenys Holly Platelet mean volume (Bld) [Entitic vol] 11.6 fL Normal 9.5-13.5 [facility] Comment on above: Performed By: #### M G, CMP, TSH, T7, BNP #### [facility] [address] [place] [address] Dr. Glenys Holly PLT 309 103/ul Normal 150-450 [facility] Comment on above: Performed By: #### M G, CMP, TSH, T7, BNP #### [facility] [address] [place] [address] Dr. Glenys Holly RBC 3.65 106/ul Critically low 4.20-5.40 [facility] Comment on above: Performed By: #### M G, CMP, TSH, T7, BNP #### [facility] [address] [place] [address] Dr. Glenys Holly WBC 22.0 103/ul Critically high 4.0-11.0 [facility] Comment on above: Performed By: #### M G, CMP, TSH, T7, BNP #### [facility] [address] [place] [address] Dr. Glenys Holly PROF 14(COMP METB)on 022 Albumin [Mass/Vol] 2.5 g/dL Critically low 3.4-5.0 [facility] Comment on above: Performed By: #### C MP, HSTROPN, BNP ####[facility] [id number] [address]Dr. Glenys Holly Albumin/Globulin [Mass ratio] 1.0 {ratio} Normal [facility] Comment on above: Performed By: #### C MP, HSTROPN, BNP ####[facility] [id number] [address]Dr. Glenys Holly ALP [Catalytic activity/Vol] 69 U/L Normal 46-116 [facility] Comment on above: Performed By: #### C MP, HSTROPN, BNP ####[facility] [id number] [place], [place] [address]Dr. Glenys Holly ALT [Catalytic activity/Vol] 12 U/L Critically low 14-59 [facility] Comment on above: Performed By: #### C MP, HSTROPN, BNP ####[facility] [address] [place], [place] [address]Dr. Glenys Holly Anion gap [Moles/Vol] 10.9 mmol/L Normal [facility] Comment on above: Performed By: #### C MP, HSTROPN, BNP ####[facility] [address] [address]Dr. Glenys Holly AST [Catalytic activity/Vol] 25 U/L Normal 15-37 [facility] Comment on above: Performed By: #### C MP, HSTROPN, BNP ####[facility] [address] [address]Dr. Glenys Holly Bilirubin [Mass/Vol] 0.1 mg/dL Critically low 0.2-1.0 [facility] Comment on above: Performed By: #### C MP, HSTROPN, BNP ####[facility] [address] [address]Dr. Glenys Holly Calcium [Mass/Vol] 9.1 mg/dL Normal 8.5-10.1 [facility] Comment on above: Performed By: #### C MP, HSTROPN, BNP ####[facility] [address] [address]Dr. Glenys Holly Chloride [Moles/Vol] 110 mmol/L Critically high 98-107 [facility] Comment on above: Performed By: #### C MP, HSTROPN, BNP ####[facility] [address] [address]Dr. Glenys Holly CO2 [Moles/Vol] 24.8 mmol/L Normal 21.0-32.0 [facility] Comment on above: Performed By: #### C MP, HSTROPN, BNP ####[facility] [address] [address]Dr. Glenys Holly Creatinine [Mass/Vol] 0.87 mg/dL Normal 0.55-1.02 [facility] Comment on above: Performed By: #### C MP, HSTROPN, BNP ####[facility] [address] [place], [place] [address]Dr. Glenys Holly EGFR-AF VINCENTIAN >60 Normal >=60 [facility] Comment on above: Performed By: #### C MP, HSTROPN, BNP ####[facility] [address] [place], [place] [address]Dr. Glenys Holly EGFR-NON AF VINCENTIAN >60 Normal >=60 [facility] Comment on above: Performed By: #### C MP, HSTROPN, BNP ####[facility] [address] [address]Dr. Glenys Holly Globulin (S) [Mass/Vol] 2.5 g/dL Normal [facility] Comment on above: Performed By: #### C MP, HSTROPN, BNP ####[facility] [address] [address]Dr. Glenys Holly Glucose [Mass/Vol] 128 mg/dL Critically high 74-106 [facility] Comment on above: Performed By: #### C MP, HSTROPN, BNP ####[facility] [address] [address]Dr. Glenys Holly Potassium [Moles/Vol] 4.7 mmol/L Normal 3.5-5.1 [facility] Comment on above: Performed By: #### C MP, HSTROPN, BNP ####[facility] [address] [address]Dr. Glenys Holly Protein [Mass/Vol] 5.0 g/dL Critically low 6.4-8.2 [facility] Comment on above: Performed By: #### C MP, HSTROPN, BNP ####[facility] [address] [address]Dr. Glenys Holly Sodium [Moles/Vol] 141 mmol/L Normal 136-145 [facility] Comment on above: Performed By: #### C MP, HSTROPN, BNP ####[facility] [address] [address]Dr. Glenys Holly Urea nitrogen [Mass/Vol] 28.0 mg/dL Critically high 7.0-18.0 [facility] Comment on above: Performed By: #### C MP, HSTROPN, BNP ####[facility] [address] [address]Dr. Glenys Holly Urea nitrogen/Creatinine [Mass ratio] 32.2 mg/mg Normal [facility] Comment on above: Performed By: #### C MP, HSTROPN, BNP ####[facility] [address] [address]Dr. Glenys Holly TROPONIN, HIGH SENSITIVITYon 05-07-2022 HSTROP 78.5 pg/mL Critically high 4.0-51.3 [facility] Comment on above: Result Comment: CUT- OFF POINTS HAVE BEEN ESTABLISHED BASED ON THE FOURTH UNIVERSAL DEFINITIONS OF MYOCARDIAL INFARCTION. THE UPPER REFERENCE LIMIT (URL) OF TROPONIN, DEFINED THE 99TH PERCENTILE OF cTnI DISTRIBUTION IN A REFERENCE POPULATION, HAS BEEN CONFIRMED THE DECISION THRESHOLD FOR IN DIAGNOSIS. Performed By: #### C MP, HSTROPN, BNP ####[facility] [address] [address]Dr. Glenys Holly XR CHEST 2 Von 05-07-2022 [...] [place] Date: 2022-05-07 10:34 Normal [facility] BNPon 05-06-2022 Natriuretic peptide B (Bld) [Mass/Vol] 1143.0 pg/mL Normal <=1,800.0 [facility] Comment on above: Performed By: #### C MP, BNP ####[facility] [address] [address]Dr. Glenys Holly CBC AUTO DIFFon 05-06-2022 BASO # 0.0 103/ul Normal 0.0-0.1 [facility] Comment on above: Performed By: #### M G, CMP, TSH, T7, BNP #### [facility] [address] [address] [address] Glenys Holly Basophils/100 WBC (Bld) 0.1 % Critically low 0.2-2.0 [facility] Comment on above: Performed By: #### M G, CMP, TSH, T7, BNP #### [facility] [address] [address] [address] Glenys Holly EO # 0.0 103/ul Normal 0.0-0.7 [facility] Comment on above: Performed By: #### M G, CMP, TSH, T7, BNP #### [facility] [address] [address] [address] Glenys Holly Eosinophils/100 WBC (Bld) 0.0 % Critically low 0.9-7.0 [facility] Comment on above: Performed By: #### M G, CMP, TSH, T7, BNP #### [facility] [address] [place] [address] Dr. Glenys Holly Erythrocyte distribution width (RBC) [Ratio] 15.8 % Critically high 11.0-15.0 [facility] Comment on above: Performed By: #### M G, CMP, TSH, T7, BNP #### [facility] [address] [place] [address] Dr. Glenys Holly Hematocrit (Bld) [Volume fraction] 36.7 % Normal 36.0-48.0 [facility] Comment on above: Performed By: #### M G, CMP, TSH, T7, BNP #### [facility] [address] [place] [address] Dr. Glenys Holly Hemoglobin (Bld) [Mass/Vol] 12.3 g/dL Normal 12.0-16.0 [facility] Comment on above: Performed By: #### M G, CMP, TSH, T7, BNP #### [facility] [address] [place] [address] Dr. Glenys Holly IG # 0.10 10e3/ul Critically high 0.00-0.03 [facility] Comment on above: Performed By: #### M G, CMP, TSH, T7, BNP #### [facility] [address] [place] [address] Dr. Glenys Holly IG % 0.5 % Normal 0.0-0.5 [facility] Comment on above: Performed By: #### M G, CMP, TSH, T7, BNP #### [facility] [address] [place] [address] Dr. Glenys Holly LYMPH # 1.4 103/ul Normal 1.2-3.8 [facility] Comment on above: Performed By: #### M G, CMP, TSH, T7, BNP #### [facility] [address] [place] [address] Dr. Glenys Holly Lymphocytes/100 WBC (Bld) 7.2 % Critically low 20.5-60.0 [facility] Comment on above: Performed By: #### M G, CMP, TSH, T7, BNP #### [facility] [address] [place] [address] Dr. Glenys Holly MANUAL DIFF REQ NO Normal [facility] Comment on above: Performed By: #### M G, CMP, TSH, T7, BNP #### [facility] [address] [place] [address] Dr. Glenys Holly MCH (RBC) [Entitic mass] 30.9 pg Normal 26.7-34.0 [facility] Comment on above: Performed By: #### M G, CMP, TSH, T7, BNP #### [facility] [address] [place] [address] Dr. Glenys Holly MCHC (RBC) [Mass/Vol] 33.5 g/dL Normal 29.9-35.2 [facility] Comment on above: Performed By: #### M G, CMP, TSH, T7, BNP #### [facility] [address] [place] [address] Dr. Glenys Holly MCV (RBC) [Entitic vol] 92.2 fL Normal 81.0-99.0 [facility] Comment on above: Performed By: #### M G, CMP, TSH, T7, BNP #### [facility] [address] [place] [address] Dr. Glenys Holly MONO # 0.9 103/ul Critically high 0.3-0.8 [facility] Comment on above: Performed By: #### M G, CMP, TSH, T7, BNP #### [facility] [address] [place] [address] Dr. Glenys Holly Monocytes/100 WBC (Bld) 4.6 % Normal 1.7-12.0 [facility] Comment on above: Performed By: #### M G, CMP, TSH, T7, BNP #### [facility] [address] [place] [address] Dr. Glenys Holly NEUT # 17.4 103/ul Critically high 1.4-6.5 [facility] Comment on above: Performed By: #### M G, CMP, TSH, T7, BNP #### [facility] [address] [address] [address] Glenys Holly Neutrophils/100 WBC (Bld) 87.6 % Critically high 43.0-75.0 [facility] Comment on above: Performed By: #### M G, CMP, TSH, T7, BNP #### [facility] [address] [address] [address] Glenys Holly Platelet mean volume (Bld) [Entitic vol] 11.2 fL Normal 9.5-13.5 [facility] Comment on above: Performed By: #### M G, CMP, TSH, T7, BNP #### [facility] [address] [place] [address] Dr. Glenys Holly PLT 310 103/ul Normal 150-450 [facility] Comment on above: Performed By: #### M G, CMP, TSH, T7, BNP #### [facility] [address] [place] [address] Dr. Glenys Holly RBC 3.98 106/ul Critically low 4.20-5.40 [facility] Comment on above: Performed By: #### M G, CMP, TSH, T7, BNP #### [facility] [address] [address] [address] Glenys Holly WBC 19.8 103/ul Critically high 4.0-11.0 [facility] Comment on above: Performed By: #### M G, CMP, TSH, T7, BNP #### [facility] [address] [address] [address] Glenys Holly LACTATE/LACTIC ACIDon 2021 Lactate [Moles/Vol] 1.1 mmol/L Normal 0.4-1.9 [facility] Comment on above: Performed By: #### M G, CMP, TSH, T7, BNP #### [facility] [address] [place] [address] Dr. Glenys Holly POINT OF CARE GLUCOSEon 04-12 Glucose [Mass/Vol] 164 mg/dL Critically high 74-106 T [facility] Comment on above: Performed By: #### M G, CMP, TSH, T7, BNP #### [facility] [address] [place], [place] [address] Dr. Glenys Holly PROF 14(COMP METB)on 022 Albumin [Mass/Vol] 2.6 g/dL Critically low 3.4-5.0 [facility] Comment on above: Performed By: #### C MP, BNP ####[facility] [address] [address]Dr. Glenys Holly Albumin/Globulin [Mass ratio] 1.0 {ratio} Normal [facility] Comment on above: Performed By: #### C MP, BNP ####[facility] [address] [address]Dr. Glenys Holly ALP [Catalytic activity/Vol] 88 U/L Normal 46-116 [facility] Comment on above: Performed By: #### C GEOFFREY, BNP ####[facility] [address] [address]Dr. Glenys Holly ALT [Catalytic activity/Vol] 1 U/L Critically low 14-59 [facility] Comment on above: Performed By: #### C MP, BNP ####[facility] [address] [id number] Holly Anion gap [Moles/Vol] 9.9 mmol/L Normal [facility] Comment on above: Performed By: #### C MP, BNP ####[facility] [address] [address]Dr. Glenys Holly AST [Catalytic activity/Vol] 19 U/L Normal 15-37 [facility] Comment on above: Performed By: #### C MP, BNP ####[facility] [address] [address]Dr. Glenys Holly Bilirubin [Mass/Vol] 0.2 mg/dL Normal 0.2-1.0 [facility] Comment on above: Performed By: #### C MP, BNP ####[facility] [address] [address]Dr. Glenys Holly Calcium [Mass/Vol] 8.7 mg/dL Normal 8.5-10.1 [facility] Comment on above: Performed By: #### C MP, BNP ####[facility] [address] [address]Dr. Glenys Holly Chloride [Moles/Vol] 108 mmol/L Critically high 98-107 [facility] Comment on above: Performed By: #### C MP, BNP ####[facility] [address] [place], [place] [address]Dr. Glenys Holly CO2 [Moles/Vol] 25.2 mmol/L Normal 21.0-32.0 [facility] Comment on above: Performed By: #### C MP, BNP ####[facility] [address] [place], [place] [address]Dr. Glenys Holly Creatinine [Mass/Vol] 0.80 mg/dL Normal 0.55-1.02 [facility] Comment on above: Performed By: #### C MP, BNP ####[facility] [address] [place], [place] [address]Dr. Glenys Holly EGFR-AF VINCENTIAN >60 Normal >=60 [facility] Comment on above: Performed By: #### C MP, BNP ####[facility] [address] [place], [place] [address]Dr. Glenys Holly EGFR-NON AF VINCENTIAN >60 Normal >=60 [facility] Comment on above: Performed By: #### C MP, BNP ####[facility] [address] [place], [place] [address]Dr. Glenys Holly Globulin (S) [Mass/Vol] 2.7 g/dL Normal [facility] Comment on above: Performed By: #### C MP, BNP ####[facility] [address] [place], [place] [address]Dr. Glenys Holly Glucose [Mass/Vol] 123 mg/dL Critically high 74-106 [facility] Comment on above: Performed By: #### C MP, BNP ####[facility] [address] [address]Dr. Glenys Holly Potassium [Moles/Vol] 4.1 mmol/L Normal 3.5-5.1 [facility] Comment on above: Performed By: #### C MP, BNP ####[facility] [address] [id number]. Glenys Holly Protein [Mass/Vol] 5.3 g/dL Critically low 6.4-8.2 [facility] Comment on above: Performed By: #### C MP, BNP ####[facility] [address] [id number]. Glenys Holly Sodium [Moles/Vol] 139 mmol/L Normal 136-145 [facility] Comment on above: Performed By: #### C MP, BNP ####[facility] [address] [id number]. Glenys Holly Urea nitrogen [Mass/Vol] 22.0 mg/dL Critically high 7.0-18.0 [facility] Comment on above: Performed By: #### C MP, BNP ####[facility] [address] [id number]. Glenys Holly Urea nitrogen/Creatinine [Mass ratio] 27.5 mg/mg Normal [facility] Comment on above: Performed By: #### C MP, BNP ####[facility] [address] [address]DrRatna Holly T3, TOTAL (TRIIODOTHYRONINE) on 05-06-2022 T3, TOTAL 69 ng/dL Critically low 71-180 [facility] Comment on above: Performed By: #### M G, CMP, TSH, T7, BNP #### [facility] [address] [place], [place] [address] Dr. Glenys Holly TROPONIN, HIGH SENSITIVITYon 05-06-2022 HSTROP 141.0 pg/mL Critically high 4.0-51.3 [facility] Comment on above: Result Comment: CUT- OFF POINTS HAVE BEEN ESTABLISHED BASED ON THE FOURTH UNIVERSAL DEFINITIONS OF MYOCARDIAL INFARCTION. THE UPPER REFERENCE LIMIT (URL) OF TROPONIN, DEFINED THE 99TH PERCENTILE OF cTnI DISTRIBUTION IN A REFERENCE POPULATION, HAS BEEN CONFIRMED THE DECISION THRESHOLD FOR IN DIAGNOSIS. Performed By: #### M G, CMP, TSH, T7, BNP #### [facility] [address] [place] [address] Dr. Glenys Holly AMYLASEon 05-05-2022 Amylase [Catalytic activity/Vol] 26 U/L Normal 25-115 [facility] Comment on above: Performed By: #### M G, CMP, TSH, T7, BNP #### [facility] [address] [address] [address] Glenys Holly BNPon 05-05-2022 Natriuretic peptide B (Bld) [Mass/Vol] 811.0 pg/mL Normal <=1,800.0 [facility] Comment on above: Performed By: #### M G, CMP, TSH, T7, BNP #### [facility] [address] [place] [address] Dr. Glenys Holly CARDIAC ADEEL 3-6on 2 CK [Catalytic activity/Vol] 33 U/L Normal 26-192 [facility] Comment on above: Performed By: #### C MREP ####[facility] [address] [address]DrRatna Holly CK.MB [Mass/Vol] 1.13 ng/mL Normal <=3.60 [facility] Comment on above: Performed By: #### C MREP ####[facility] [address] [address]Dr. Glenys Holly HSTROP 164.3 pg/mL Critically high 4.0-51.3 [facility] Comment on above: Result Comment: CUT- OFF POINTS HAVE BEEN ESTABLISHED BASED ON THE FOURTH UNIVERSAL DEFINITIONS OF MYOCARDIAL INFARCTION. THE UPPER REFERENCE LIMIT (URL) OF TROPONIN, DEFINED THE 99TH PERCENTILE OF cTnI DISTRIBUTION IN A REFERENCE POPULATION, HAS BEEN CONFIRMED THE DECISION THRESHOLD FOR IN DIAGNOSIS. Performed By: #### C MREP ####[facility] [address] [address]Dr. Glenys Holly CK [Catalytic activity/Vol] 38 U/L Normal 26-192 [facility] Comment on above: Performed By: #### M G, CMP, TSH, T7, BNP #### [facility] [address] [address] [address] Glenys Holly CK.MB [Mass/Vol] 0.91 ng/mL Normal <=3.60 [facility] Comment on above: Performed By: #### M G, CMP, TSH, T7, BNP #### [facility] [address] [address] [address] Glenys Holly HSTROP 178.2 pg/mL Critically high 4.0-51.3 [facility] Comment on above: Result Comment: CUT- OFF POINTS HAVE BEEN ESTABLISHED BASED ON THE FOURTH UNIVERSAL DEFINITIONS OF MYOCARDIAL INFARCTION. THE UPPER REFERENCE LIMIT (URL) OF TROPONIN, DEFINED THE 99TH PERCENTILE OF cTnI DISTRIBUTION IN A REFERENCE POPULATION, HAS BEEN CONFIRMED THE DECISION THRESHOLD FOR IN DIAGNOSIS. Performed By: #### M G, CMP, TSH, T7, BNP #### [facility] [address] [place] [address] Dr. Glenys Holly CARDIAC ADEEL ADMITon 022 CK [Catalytic activity/Vol] 29 U/L Normal 26-192 [facility] Comment on above: Performed By: #### M G, CMP, TSH, T7, BNP #### [facility] [address] [address] [address] Glenys Holly CK.MB [Mass/Vol] 0.73 ng/mL Normal <=3.60 [facility] Comment on above: Performed By: #### M G, CMP, TSH, T7, BNP #### [facility] [address] [place] [address] Dr. Glenys Holly HSTROP 191.6 pg/mL Critically high 4.0-51.3 [facility] Comment on above: Result Comment: CUT- OFF POINTS HAVE BEEN ESTABLISHED BASED ON THE FOURTH UNIVERSAL DEFINITIONS OF MYOCARDIAL INFARCTION. THE UPPER REFERENCE LIMIT (URL) OF TROPONIN, DEFINED THE 99TH PERCENTILE OF cTnI DISTRIBUTION IN A REFERENCE POPULATION, HAS BEEN CONFIRMED THE DECISION THRESHOLD FOR IN DIAGNOSIS. Performed By: #### M G, CMP, TSH, T7, BNP #### [facility] [address] [place] [address] Dr. Glenys Holly NEO 79 ng/mL Normal 9-82 [facility] Comment on above: Performed By: #### M G, CMP, TSH, T7, BNP #### [facility] [address] [address] [address] Glenys Holly CBC W MANUAL DIFFon 05-05-20 22 ANISOCYTOSIS 1+ Normal [facility] Comment on above: Performed By: #### M G, CMP, TSH, T7, BNP #### [facility] [address] [address] [address] Glenys Holly ATYPICAL LYMPH # Normal [facility] Comment on above: Performed By: #### M G, CMP, TSH, T7, BNP #### [facility] [address] [address] [address] Glenys Holly ATYPICAL LYMPH % Normal [facility] Comment on above: Performed By: #### M G, CMP, TSH, T7, BNP #### [facility] [address] [address] [address] Glenys Holly BAND # 0.2 103/ul Normal 0.0-0.3 [facility] Comment on above: Performed By: #### M G, CMP, TSH, T7, BNP #### [facility] [address] [address] [address] Glenys Holly BAND % 1 % Normal 0-5 [facility] Comment on above: Performed By: #### M G, CMP, TSH, T7, BNP #### [facility] [address] [address] [address] Glenys Holly BASOM # 0.00 103/ul Normal 0.00-0.10 [facility] Comment on above: Performed By: #### M G, CMP, TSH, T7, BNP #### [facility] [address] [address] [address] Glenys Holly BASOM % 0.0 % Critically low 0.2-2.0 [facility] Comment on above: Performed By: #### M G, CMP, TSH, T7, BNP #### [facility] [address] [address] [address] Glenys Holly BLAST # Normal [facility] Comment on above: Performed By: #### M G, CMP, TSH, T7, BNP #### [facility] [address] [place] [address] Dr. Glenys Holly BLAST % Normal [facility] Comment on above: Performed By: #### M G, CMP, TSH, T7, BNP #### [facility] [address] [place] [address] Dr. Glenys Holly CORRECTED WBC Normal 4.0-11.0 [facility] Comment on above: Performed By: #### M G, CMP, TSH, T7, BNP #### [facility] [address] [place] [address] Dr. Glenys Holly EOS # 0.00 103/ul Normal 0.00-0.70 [facility] Comment on above: Performed By: #### M G, CMP, TSH, T7, BNP #### [facility] [address] [place] [address] Dr. Glenys Holly EOS% 0.0 % Critically low 0.9-7.0 [facility] Comment on above: Performed By: #### M G, CMP, TSH, T7, BNP #### [facility] [address] [place] [address] Dr. Glenys Holly HCT 41.5 % Normal 36.0-48.0 [facility] Comment on above: Performed By: #### M G, CMP, TSH, T7, BNP #### [facility] [address] [place] [address] Dr. Glenys Holly HGB 14.2 g/dl Normal 12.0-16.0 [facility] Comment on above: Performed By: #### M G, CMP, TSH, T7, BNP #### [facility] [address] [place] [address] Dr. Glenys Holly LYMPHM # 0.96 103/ul Critically low 1.20-3.80 [facility] Comment on above: Performed By: #### M G, CMP, TSH, T7, BNP #### [facility] [address] [address] [address] Glenys Holly LYMPHM% 6.0 % Critically low 20.5-60.0 [facility] Comment on above: Performed By: #### M G, CMP, TSH, T7, BNP #### [facility] [address] [address] [address] Glenys Holly MCH 31.0 pg Normal 26.7-34.0 [facility] Comment on above: Performed By: #### M G, CMP, TSH, T7, BNP #### [facility] [address] [address] [address] Glenys Holly MCHC 34.2 g/dl Normal 29.9-35.2 [facility] Comment on above: Performed By: #### M G, CMP, TSH, T7, BNP #### [facility] [address] [place] [address] Dr. Glenys Holly MCV 90.6 fL Normal 81.0-99.0 [facility] Comment on above: Performed By: #### M G, CMP, TSH, T7, BNP #### [facility] [address] [place] [address] Dr. Glenys Holly METAMYELOCYTE # Normal [facility] Comment on above: Performed By: #### M G, CMP, TSH, T7, BNP #### [facility] [address] [address] [address] Glenys Holly METAMYELOCYTE % Normal [facility] Comment on above: Performed By: #### M G, CMP, TSH, T7, BNP #### [facility] [address] [place] [address] Dr. Glenys Holly MONOM# 2.56 103/ul Critically high 0.30-0.80 [facility] Comment on above: Performed By: #### M G, CMP, TSH, T7, BNP #### [facility] [address] [place] [address] Dr. Glenys Holly MONOM% 16.0 % Critically high 1.7-12.0 [facility] Comment on above: Performed By: #### M G, CMP, TSH, T7, BNP #### [facility] [address] [address] [address] Glenys Holly MPV 11.1 fL Normal 9.5-13.5 [facility] Comment on above: Performed By: #### M G, CMP, TSH, T7, BNP #### [facility] [address] [address] [address] Glenys Holly MYELOCYTE # Normal [facility] Comment on above: Performed By: #### M G, CMP, TSH, T7, BNP #### [facility] [address] [address] [address] Glenys Holly MYELOCYTE % Normal [facility] Comment on above: Performed By: #### M G, CMP, TSH, T7, BNP #### [facility] [address] [place] [address] Dr. Glenys Holly NRBC Normal [facility] Comment on above: Performed By: #### M G, CMP, TSH, T7, BNP #### [facility] [address] [address] [address] Glenys Holly PLT 352 103/ul Normal 150-450 [facility] Comment on above: Performed By: #### M G, CMP, TSH, T7, BNP #### [facility] [address] [address] [address] Glenys Holly RBC 4.58 106/ul Normal 4.20-5.40 [facility] Comment on above: Performed By: #### M G, CMP, TSH, T7, BNP #### [facility] [address] [address] [address] Glenys Holly RDW 15.2 % Critically high 11.0-15.0 [facility] Comment on above: Performed By: #### M G, CMP, TSH, T7, BNP #### [facility] [address] [address] [address] Glenys Holly SEG # 12.32 103/ul Critically high 1.40-6.50 [facility] Comment on above: Performed By: #### M G, CMP, TSH, T7, BNP #### [facility] [address] [place], [place] [address] Dr. Glenys Holly SEG % 77.0 % Critically high 43.0-75.0 [facility] Comment on above: Performed By: #### M G, CMP, TSH, T7, BNP #### [facility] [address] [place], [place] [address] Dr. Glenys Holly WBC 16.0 103/ul Critically high 4.0-11.0 [facility] Comment on above: Performed By: #### M G, CMP, TSH, T7, BNP #### [facility] [address] [place], [place] [address] Dr. Glenys Holly CTA CHEST WO W [...] by: YULISSA TALBERT Date: 2022-05-05 09:32 Normal [facility] CULTURE BLOODon 05-05-2022 Microscopic examination of blood, culture Culture Observations: NO GROWTH AT 5 DAYS. Normal [facility] Comment on above: Performed By: #### B LDCX2 ####[facility] [address] [address]Dr. Glenys Holly Microscopic examination of blood, culture Culture Observations: NO GROWTH AT 5 DAYS. Normal [facility] Comment on above: Performed By: #### B LDCX1 ####[facility] [address] [address]Dr. Glenys Holly CULTURE URINEon 05-05-2022 CULTURE URINE Culture Observations : LIGHT GROWTH OF MIXED GENITAL NIDA. NO POTENTIAL PATHOGENS SEEN. Normal [facility] Comment on above: Performed By: #### U RCX ####[facility] [address] [address]DrRatna Holly Covid-19 PCR (CVDTB)on 04-12 SARS-CoV-2 (COVID-19) RNA KINZA+probe Ql (Unsp spec) Not detected Normal NOT DETECTED [facility] Comment on above: Result Comment: When diagnostic [...] for this test is supported by the Music Therapy Specialist of Health and Human Service's declaration that [...] used). Performed By: #### C VDTBH #### [facility] [address] [address] [address] Glenys Holly ECHOCARDIO M/2D COMPLETEon 1 07-05-2021 ECHOCARDIO M/2D COMPLETE Patient: JUDITH LAND Exam Date: 05/05/2022 : 1945 Gender:F Ordering : DR KAVON SAMS . Admission #: [id number] Family : Order #: [id number] CLICK HERE TO VIEW EXAM ECHOCARDIOGRAM REPORT [...] M.D. on 05/10/2022 at 13:12 Normal [facility] INFLUENZA A AND B AGon 05-05 INFLUANEGH SEE BELOW Normal [facility] Comment on above: Result Comment: Nega tive for Flu A protein angiten. Infection due to Flu A cannot be ruled out. Flu A angiten in the sample may be below the detection limit of the test. Performed By: #### M G, CMP, TSH, T7, BNP #### [facility] [address] [place] [address] Dr. Glenys Holly [facility] SEE BELOW Normal [facility] Comment on above: Result Comment: Nega tive for Flu B protein antigen. Infection due to Flu B cannot be ruled out. Flu B antigen in the sample may be below the detection limit of the test. Performed By: #### M G, CMP, TSH, T7, BNP #### [facility] [address] [place] [address] Dr. Glenys Holly INFLUENZA A AG Negative Normal NEGATIVE SEE COMMENT [facility] Comment on above: Performed By: #### M G, CMP, TSH, T7, BNP #### [facility] [address] [place] [address] Dr. Glenys Holly INFLUENZA B AG Negative Normal NEGATIVE SEE COMMENT [facility] Comment on above: Performed By: #### M G, CMP, TSH, T7, BNP #### [facility] [address] [place] [address] Dr. Glenys Holly INTERNAL CONTROLS Within Normal Limits Normal Wi thin Normal Limits [facility] Comment on above: Performed By: #### M G, CMP, TSH, T7, BNP #### [facility] [address] [place] [address] Dr. Glenys Holly LACTATE/LACTIC ACIDon 2021 Lactate [Moles/Vol] 5.2 mmol/L Critically high 0.4-1.9 [facility] Comment on above: Performed By: #### M G, CMP, TSH, T7, BNP #### [facility] [address] [place] [address] Dr. Glenys Holly Lactate [Moles/Vol] 4.8 mmol/L Critically high 0.4-1.9 [facility] Comment on above: Performed By: #### M G, CMP, TSH, T7, BNP #### [facility] [address] [place] [address] Dr. Glenys Holly LIPASEon 05-05-2022 Lipase [Catalytic activity/Vol] 64.0 U/L Critically low 73.0-393.0 [facility] Comment on above: Performed By: #### M G, CMP, TSH, T7, BNP #### [facility] [address] [place] [address] Dr. Glenys Holly PROF CHEM 8 (BAS METB)on Anion gap [Moles/Vol] 12.6 mmol/L Normal [facility] [place] [facility] Comment on above: Performed By: #### M G, CMP, TSH, T7, BNP #### [facility] [address] [place] [address] Dr. Glenys Holly Calcium [Mass/Vol] 9.6 mg/dL Normal 8.5-10.1 [facility] Comment on above: Performed By: #### M G, CMP, TSH, T7, BNP #### [facility] [address] [place] [address] Dr. Glenys Holly Chloride [Moles/Vol] 102 mmol/L Normal 98-107 [facility] Comment on above: Performed By: #### M G, CMP, TSH, T7, BNP #### [facility] [address] [place] [address] Dr. lGenys Holly CO2 [Moles/Vol] 26.3 mmol/L Normal 21.0-32.0 [facility] Comment on above: Performed By: #### M G, CMP, TSH, T7, BNP #### [facility] [address] [address] [address] Glenys Holly Creatinine [Mass/Vol] 1.00 mg/dL Normal 0.55-1.02 [facility] Comment on above: Performed By: #### M G, CMP, TSH, T7, BNP #### [facility] [address] [address] [address] Glenys Holly EGFR-AF VINCENTIAN >60 Normal >=60 [facility] Comment on above: Performed By: #### M G, CMP, TSH, T7, BNP #### [facility] [address] [address] [address] Glenys Holly EGFR-NON AF VINCENTIAN 54 mL/min/1.73m2 Critically low >=60 [facility] Comment on above: Performed By: #### M G, CMP, TSH, T7, BNP #### [facility] [address] [place] [address] Dr. Glenys Holly Glucose [Mass/Vol] 128 mg/dL Critically high 74-106 [facility] [facility] Comment on above: Performed By: #### M G, CMP, TSH, T7, BNP #### [facility] [address] [address] [address] Glenys Holly Potassium [Moles/Vol] 2.9 mmol/L Critically low 3.5-5.1 [facility] Comment on above: Performed By: #### M G, CMP, TSH, T7, BNP #### [facility] [address] [address] [address] Glenys Holly Sodium [Moles/Vol] 138 mmol/L Normal 136-145 [facility] Comment on above: Performed By: #### M G, CMP, TSH, T7, BNP #### [facility] [address] [address] [address] Glenys Holly Urea nitrogen [Mass/Vol] 20.0 mg/dL Critically high 7.0-18.0 [facility] Comment on above: Performed By: #### M G, CMP, TSH, T7, BNP #### [facility] [address] [place] [address] Dr. Glenys Holly Urea nitrogen/Creatinine [Mass ratio] 20.0 mg/mg Normal [facility] Comment on above: Performed By: #### M G, CMP, TSH, T7, BNP #### [facility] [address] [place] [address] Dr. Glenys Holly T4on 05-05-2022 T4 [Mass/Vol] 7.40 ug/dL Normal 4.80-13.90 [facility] Comment on above: Performed By: #### M G, CMP, TSH, T7, BNP #### [facility] [address] [address] [address] Glenys Holly TSHon 05-05-2022 TSH 0.198 uIU/mL Critically low 0.358-3.74 0 [facility] Comment on above: Performed By: #### M G, CMP, TSH, T7, BNP #### [facility] [address] [place] [address] Dr. Glenys Holly UA RANDOM W/MICROSCOPICon BACTERIA NONE SEEN Normal NONE SEEN [facility] Comment on above: Performed By: #### M G, CMP, TSH, T7, BNP #### [facility] [address] [place] [address] Dr. Glenys Holly Bilirubin Ql (U) Negative Normal NEGATIVE [facility] Comment on above: Performed By: #### M G, CMP, TSH, T7, BNP #### [facility] [address] [place] [address] Dr. Glenys Holly CAST NONE SEEN Normal NONE SEEN [facility] Comment on above: Performed By: #### M G, CMP, TSH, T7, BNP #### [facility] [address] [place] [address] Dr. Glenys Holly Clarity (U) SL CLOUDY Abnormal CLEAR [facility] Comment on above: Performed By: #### M G, CMP, TSH, T7, BNP #### [facility] [address] [place] [address] Dr. Glenys Holly Color (U) LT. YELLOW Normal YELLOW [facility] Comment on above: Performed By: #### M G, CMP, TSH, T7, BNP #### [facility] [address] [address] [address] Glenys Holly Crystals LM Nom (Urine sed) NONE SEEN Normal NONE SEEN [facility] Comment on above: Performed By: #### M G, CMP, TSH, T7, BNP #### [facility] [address] [address] [address] Glenys Holly Epithelial cells LM Ql (Urine sed) FEW Abnormal NONE SEEN /RARE [facility] Comment on above: Performed By: #### M G, CMP, TSH, T7, BNP #### [facility] [address] [address] [address] Glenys Holly Glucose Ql (U) Negative Normal NEGATIVE [facility] Comment on above: Performed By: #### M G, CMP, TSH, T7, BNP #### [facility] [address] [address] [address] Glenys Holly Hemoglobin Ql (U) MODERATE Abnormal NEGATIVE [facility] Comment on above: Performed By: #### M G, CMP, TSH, T7, BNP #### [facility] [address] [address] [address] Glenys Holly Ketones Ql (U) Negative Normal NEGATIVE [facility] Comment on above: Performed By: #### M G, CMP, TSH, T7, BNP #### [facility] [address] [address] [address] Glenys Holly LEUKOCYTES Negative Normal NEGATIVE [facility] Comment on above: Performed By: #### M G, CMP, TSH, T7, BNP #### [facility] [address] [address] [address] Glenys Holly MUCOUS NONE SEEN Normal NONE SEEN [facility] Comment on above: Performed By: #### M G, CMP, TSH, T7, BNP #### [facility] [address] [address] [address] Glenys Holly Nitrite Ql (U) Negative Normal NEGATIVE [facility] Comment on above: Performed By: #### M G, CMP, TSH, T7, BNP #### [facility] [address] [address] [address] Glenys Holly pH (U) 6.0 [pH] Normal 5-9 [facility] Comment on above: Performed By: #### M G, CMP, TSH, T7, BNP #### [facility] [address] [address] [address] Glenys Holly RBC 2-5 Abnormal 0-2 [facility] Comment on above: Performed By: #### M G, CMP, TSH, T7, BNP #### [facility] [address] [address] [address] Glenys Holly SPEC GRAVITY 1.010 Normal 1.005-<=1. 025 [facility] Comment on above: Performed By: #### M G, CMP, TSH, T7, BNP #### [facility] [address] [address] [address] Glenys Holly UA PROTEIN TRACE Normal NEGATIVE/ TRACE [facility] Comment on above: Performed By: #### M G, CMP, TSH, T7, BNP #### [facility] [address] [place] [address] Dr. Glenys Holly Urobilinogen Qn (U) 0.2 {Phoebe'U}/dL Normal 0.2 - 1. 0 [facility] Comment on above: Performed By: #### M G, CMP, TSH, T7, BNP #### [facility] [address] [address] [address] Glenys Holly WBC NONE SEEN Normal NONE SEEN [facility] Comment on above: Performed By: #### M G, CMP, TSH, T7, BNP #### [facility] [address] [place] [address] Dr. Glenys Holly XR CHEST 1 Von [...] lung disease identified. Electronically authenticated by: SUPA LERMA Date: 2022-05-05 07:41 Normal [facility] CULTURE URINEon 03-30-2022 CULTURE URINE Culture Observations : GREATER THAN 4 ORGANISMS PRESENT. PLEASE RESUBMIT CLEAN CATCH MID-STREAM URINE IF CLINICALLY INDICATED. Normal [facility] Comment on above: Performed By: #### U RCX ####[facility] [id number] [address] Glenys Holly CBC W MANUAL DIFFon 03-29-20 22 ATYPICAL LYMPH # Normal [facility] Comment on above: Performed By: #### M G, CMP, TSH, T7, BNP #### [facility] [address] [address] [address] Glenys Holly ATYPICAL LYMPH % Normal [facility] Comment on above: Performed By: #### M G, CMP, TSH, T7, BNP #### [facility] [address] [address] [address] Glenys Holly BAND # Normal 0.0-0.3 [facility] Comment on above: Performed By: #### M G, CMP, TSH, T7, BNP #### [facility] [address] [address] [address] Glenys Holly BAND % Normal 0-5 [facility] Comment on above: Performed By: #### M G, CMP, TSH, T7, BNP #### [facility] [address] [address] [address] Glenys Holly BASOM # 0.20 103/ul Critically high 0.00-0.10 [facility] Comment on above: Performed By: #### M G, CMP, TSH, T7, BNP #### [facility] [address] [address] [address] Glenys Holly BASOM % 1.0 % Normal 0.2-2.0 [facility] Comment on above: Performed By: #### M G, CMP, TSH, T7, BNP #### [facility] [address] [address] [address] Glenys Holly BLAST # Normal [facility] Comment on above: Performed By: #### M G, CMP, TSH, T7, BNP #### [facility] [address] [address] [address] Glenys Holly BLAST % Normal [facility] Comment on above: Performed By: #### M G, CMP, TSH, T7, BNP #### [facility] [address] [place] [address] Dr. Glenys Holly CORRECTED WBC Normal 4.0-11.0 [facility] Comment on above: Performed By: #### M G, CMP, TSH, T7, BNP #### [facility] [address] [place] [address] Dr. Glenys Holly EOS # 0.00 103/ul Normal 0.00-0.70 [facility] Comment on above: Performed By: #### M G, CMP, TSH, T7, BNP #### [facility] [address] [place] [address] Dr. Glenys Holly EOS% 0.0 % Critically low 0.9-7.0 [facility] Comment on above: Performed By: #### M G, CMP, TSH, T7, BNP #### [facility] [address] [place] [address] Dr. Glenys Holly HCT 45.0 % Normal 36.0-48.0 [facility] Comment on above: Performed By: #### M G, CMP, TSH, T7, BNP #### [facility] [address] [place] [address] Dr. Glenys Holly HGB 15.2 g/dl Normal 12.0-16.0 [facility] Comment on above: Performed By: #### M G, CMP, TSH, T7, BNP #### [facility] [address] [place] [address] Dr. Glenys Holly LYMPHM # 2.80 103/ul Normal 1.20-3.80 [facility] Comment on above: Performed By: #### M G, CMP, TSH, T7, BNP #### [facility] [address] [place] [address] Dr. Glenys Holly LYMPHM% 14.0 % Critically low 20.5-60.0 [facility] Comment on above: Performed By: #### M G, CMP, TSH, T7, BNP #### [facility] [address] [address] [address] Glenys Holly MCH 30.6 pg Normal 26.7-34.0 [facility] Comment on above: Performed By: #### M G, CMP, TSH, T7, BNP #### [facility] [address] [address] [address] Glenys Holly MCHC 33.8 g/dl Normal 29.9-35.2 [facility] Comment on above: Performed By: #### M G, CMP, TSH, T7, BNP #### [facility] [address] [place] [address] Dr. Glenys Holly MCV 90.7 fL Normal 81.0-99.0 [facility] Comment on above: Performed By: #### M G, CMP, TSH, T7, BNP #### [facility] [address] [place] [address] Dr. Glenys Holly METAMYELOCYTE # Normal [facility] Comment on above: Performed By: #### M G, CMP, TSH, T7, BNP #### [facility] [address] [address] [address] Glenys Holly METAMYELOCYTE % Normal [facility] Comment on above: Performed By: #### M G, CMP, TSH, T7, BNP #### [facility] [address] [address] [address] Glenys Holly MONOM# 2.40 103/ul Critically high 0.30-0.80 [facility] Comment on above: Performed By: #### M G, CMP, TSH, T7, BNP #### [facility] [address] [place] [address] Dr. Glenys Holly MONOM% 12.0 % Normal 1.7-12.0 [facility] Comment on above: Performed By: #### M G, CMP, TSH, T7, BNP #### [facility] [address] [place] [address] Dr. Glenys Holly MPV 11.5 fL Normal 9.5-13.5 [facility] Comment on above: Performed By: #### M G, CMP, TSH, T7, BNP #### [facility] [address] [address] [address] Glenys Holly MYELOCYTE # Normal [facility] Comment on above: Performed By: #### M G, CMP, TSH, T7, BNP #### [facility] [address] [address] [address] Glenys Holly MYELOCYTE % Normal [facility] Comment on above: Performed By: #### M G, CMP, TSH, T7, BNP #### [facility] [address] [place] [address] Dr. Glenys Holly NRBC Normal [facility] Comment on above: Performed By: #### M G, CMP, TSH, T7, BNP #### [facility] [address] [place] [address] Dr. Glenys Holly PLT 323 103/ul Normal 150-450 [facility] Comment on above: Performed By: #### M G, CMP, TSH, T7, BNP #### [facility] [address] [place] [address] Dr. Glenys Holly RBC 4.96 106/ul Normal 4.20-5.40 [facility] Comment on above: Performed By: #### M G, CMP, TSH, T7, BNP #### [facility] [address] [place] [address] Dr. Glenys Holly RDW 14.4 % Normal 11.0-15.0 [facility] Comment on above: Performed By: #### M G, CMP, TSH, T7, BNP #### [facility] [address] [address] [address] Glenys Holly SEG # 14.60 103/ul Critically high 1.40-6.50 [facility] Comment on above: Performed By: #### M G, CMP, TSH, T7, BNP #### [facility] [address] [place] [address] Dr. Glenys Holly SEG % 73.0 % Normal 43.0-75.0 [facility] Comment on above: Performed By: #### M G, CMP, TSH, T7, BNP #### [facility] [address] [place], [place] [address] Dr. Glenys Holly WBC 20.0 103/ul Critically high 4.0-11.0 [facility] Comment on above: Performed By: #### M G, CMP, TSH, T7, BNP #### [facility] [address] [place], [place] [address] ABD/PELV W CONon [...] RAMIRO SPENCER Date: 2022-03-29 11:27 Normal [facility] ER URINE PROFILEon 2 Bilirubin Ql (U) Negative Normal NEGATIVE [facility] Comment on above: Performed By: #### M G, CMP, TSH, T7, BNP #### [facility] [address] [place] [address] Dr. Glenys Holly Clarity (U) CLEAR Normal CLEAR [facility] Comment on above: Performed By: #### M G, CMP, TSH, T7, BNP #### [facility] [address] [address] [address] Glenys Holly Color (U) LT. YELLOW Normal YELLOW [facility] Comment on above: Performed By: #### M G, CMP, TSH, T7, BNP #### [facility] [address] [place] [address] Dr. Glenys Holly ERUAHD A micrscopic examina tion will be performed if indicated. Normal [facility] Comment on above: Performed By: #### M G, CMP, TSH, T7, BNP #### [facility] [address] [address] [address] Glenys Holly Glucose Ql (U) Negative Normal NEGATIVE [facility] Comment on above: Performed By: #### M G, CMP, TSH, T7, BNP #### [facility] [address] [address] [address] Glenys Holly Hemoglobin Ql (U) MODERATE Abnormal NEGATIVE [facility] Comment on above: Performed By: #### M G, CMP, TSH, T7, BNP #### [facility] [address] [address] [address] Glenys Holly Ketones Ql (U) 15 mg/dl Abnormal NEGATIVE [facility] Comment on above: Performed By: #### M G, CMP, TSH, T7, BNP #### [facility] [address] [address] [address] Glenys Holly LEUKOCYTES LARGE Abnormal NEGATIVE [facility] Comment on above: Performed By: #### M G, CMP, TSH, T7, BNP #### [facility] [address] [address] [address] Glenys Holly Nitrite Ql (U) Negative Normal NEGATIVE [facility] Comment on above: Performed By: #### M G, CMP, TSH, T7, BNP #### [facility] [address] [address] [address] Glenys Holly pH (U) 6.5 [pH] Normal 5-9 [facility] Comment on above: Performed By: #### M G, CMP, TSH, T7, BNP #### [facility] [address] [place] [address] Dr. Glenys Holly SPEC GRAVITY 1.015 Normal 1.005-<=1. 025 [facility] Comment on above: Performed By: #### M G, CMP, TSH, T7, BNP #### [facility] [address] [place] [address] Dr. Glenys Holly UA PROTEIN TRACE Normal NEGATIVE/ TRACE [facility] Comment on above: Performed By: #### M G, CMP, TSH, T7, BNP #### [facility] [address] [place] [address] Dr. Glenys Holly UR MICRO IND INDICATED Normal [facility] Comment on above: Performed By: #### M G, CMP, TSH, T7, BNP #### [facility] [address] [place] [address] Dr. Glenys Holly Urobilinogen Qn (U) 0.2 {Phoebe'U}/dL Normal 0.2 - 1. 0 [facility] Comment on above: Performed By: #### M G, CMP, TSH, T7, BNP #### [facility] [address] [place] [address] Dr. Glenys Holly LIPASEon 03-29-2022 Lipase [Catalytic activity/Vol] 62.0 U/L Critically low 73.0-393.0 [facility] Comment on above: Performed By: #### M G, CMP, TSH, T7, BNP #### [facility] [address] [place] [address] Dr. Glenys Holly PROF 14(COMP METB)on 022 Albumin [Mass/Vol] 3.7 g/dL Normal 3.4-5.0 [facility] Comment on above: Performed By: #### M G, CMP, TSH, T7, BNP #### [facility] [address] [address] [address] Glenys Holly Albumin/Globulin [Mass ratio] 1.2 {ratio} Normal [facility] Comment on above: Performed By: #### M G, CMP, TSH, T7, BNP #### [facility] [address] [place] [address] Dr. Glenys Holly ALP [Catalytic activity/Vol] 106 U/L Normal 46-116 [facility] Comment on above: Performed By: #### M G, CMP, TSH, T7, BNP #### [facility] [address] [address] [address] Glenys Holly ALT [Catalytic activity/Vol] 17 U/L Normal 14-59 [facility] Comment on above: Performed By: #### M G, CMP, TSH, T7, BNP #### [facility] [address] [place] [address] Dr. Glenys Holly Anion gap [Moles/Vol] 11.8 mmol/L Normal [facility] [place] [facility] Comment on above: Performed By: #### M G, CMP, TSH, T7, BNP #### [facility] [address] [place] [address] Dr. Glenys Holly AST [Catalytic activity/Vol] 19 U/L Normal 15-37 [facility] Comment on above: Performed By: #### M G, CMP, TSH, T7, BNP #### [facility] [address] [place] [address] Dr. Glenys Holly Bilirubin [Mass/Vol] 0.8 mg/dL Normal 0.2-1.0 [facility] Comment on above: Performed By: #### M G, CMP, TSH, T7, BNP #### [facility] [address] [place] [address] Dr. Glenys Holly Calcium [Mass/Vol] 9.8 mg/dL Normal 8.5-10.1 [facility] Comment on above: Performed By: #### M G, CMP, TSH, T7, BNP #### [facility] [address] [place], [place] [id number] Dr. Glenys Holly Chloride [Moles/Vol] 101 mmol/L Normal 98-107 [facility] Comment on above: Performed By: #### M G, CMP, TSH, T7, BNP #### [facility] [address] [place] [address] Dr. Glenys Holly CO2 [Moles/Vol] 26.2 mmol/L Normal 21.0-32.0 [facility] Comment on above: Performed By: #### M G, CMP, TSH, T7, BNP #### [facility] [address] [place] [address] Dr. Glenys Holly Creatinine [Mass/Vol] 0.76 mg/dL Normal 0.55-1.02 [facility] Comment on above: Performed By: #### M G, CMP, TSH, T7, BNP #### [facility] [address] [place] [address] Dr. Glenys Holly EGFR-AF VINCENTIAN >60 Normal >=60 [facility] Comment on above: Performed By: #### M G, CMP, TSH, T7, BNP #### [facility] [address] [place] [address] Dr. Glenys Holly EGFR-NON AF VINCENTIAN >60 Normal >=60 [facility] Comment on above: Performed By: #### M G, CMP, TSH, T7, BNP #### [facility] [address] [place] [address] Dr. Glenys Holly Globulin (S) [Mass/Vol] 3.2 g/dL Normal [facility] Comment on above: Performed By: #### M G, CMP, TSH, T7, BNP #### [facility] [address] [place] [address] Dr. Glenys Holly Glucose [Mass/Vol] 103 mg/dL Normal 74-106 [facility] Comment on above: Performed By: #### M G, CMP, TSH, T7, BNP #### [facility] [address] [place] [address] Dr. Glenys Holly Potassium [Moles/Vol] 3.0 mmol/L Critically low 3.5-5.1 [facility] Comment on above: Performed By: #### M G, CMP, TSH, T7, BNP #### [facility] [address] [address] [address] Glenys Holly Protein [Mass/Vol] 6.9 g/dL Normal 6.4-8.2 [facility] Comment on above: Performed By: #### M G, CMP, TSH, T7, BNP #### [facility] [address] [address] [address] Glenys Holly Sodium [Moles/Vol] 136 mmol/L Normal 136-145 [facility] Comment on above: Performed By: #### M G, CMP, TSH, T7, BNP #### [facility] [address] [address] [address] Glenys Holly Urea nitrogen [Mass/Vol] 16.0 mg/dL Normal 7.0-18.0 [facility] Comment on above: Performed By: #### M G, CMP, TSH, T7, BNP #### [facility] [address] [address] [address] Glenys Holly Urea nitrogen/Creatinine [Mass ratio] 21.1 mg/mg Normal [facility] Comment on above: Performed By: #### M G, CMP, TSH, T7, BNP #### [facility] [address] [place] [address] Dr. Glenys Holly TROPONIN, HIGH SENSITIVITYon 03-29-2022 HSTROP 30.7 pg/mL Normal 4.0-51.3 [facility] Comment on above: Result Comment: CUT- OFF POINTS HAVE BEEN ESTABLISHED BASED ON THE FOURTH UNIVERSAL DEFINITIONS OF MYOCARDIAL INFARCTION. THE UPPER REFERENCE LIMIT (URL) OF TROPONIN, DEFINED THE 99TH PERCENTILE OF cTnI DISTRIBUTION IN A REFERENCE POPULATION, HAS BEEN CONFIRMED THE DECISION THRESHOLD FOR IN DIAGNOSIS. Performed By: #### M G, CMP, TSH, T7, BNP #### [facility] [address] [place] [address] Dr. Glenys Holly URINE MICROSCOPIC ONLYon BACTERIA MODERATE Abnormal NONE SEEN [facility] Comment on above: Performed By: #### M G, CMP, TSH, T7, BNP #### [facility] [address] [address] [address] Glenys Holly Bacteria identified Cx Nom (U) INDICATED Normal [facility] Comment on above: Performed By: #### M G, CMP, TSH, T7, BNP #### [facility] [address] [address] [address] Glenys Holly CA OX CRYSTALS MODERATE Normal [facility] Comment on above: Performed By: #### M G, CMP, TSH, T7, BNP #### [facility] [address] [address] [address] Glenys Holly CAST NONE SEEN Normal NONE SEEN [facility] Comment on above: Performed By: #### M G, CMP, TSH, T7, BNP #### [facility] [address] [place] [address] Dr. Glenys Holly Crystals LM Nom (Urine sed) SEEN Abnormal NONE SEEN [facility] Comment on above: Performed By: #### M G, CMP, TSH, T7, BNP #### [facility] [address] [place] [address] Dr. Glenys Holly Epithelial cells LM Ql (Urine sed) FEW Abnormal NONE SEEN /RARE [facility] Comment on above: Performed By: #### M G, CMP, TSH, T7, BNP #### [facility] [address] [place] [address] Dr. Glenys Holly MUCOUS NONE SEEN Normal NONE SEEN [facility] Comment on above: Performed By: #### M G, CMP, TSH, T7, BNP #### [facility] [address] [place] [address] Dr. Glenys Holly RBC 5-10 Abnormal 0-2 [facility] Comment on above: Performed By: #### M G, CMP, TSH, T7, BNP #### [facility] [address] [place] [address] Dr. Glenys Holly WBC 20-50 Abnormal NONE SEEN [facility] Comment on above: Performed By: #### M G, CMP, TSH, T7, BNP #### [facility] [address] [place] [address] Dr. Glenys Holly XR ABD FLAT UP_PA [...] by: RAMIRO SPENCER Date: 2022-03-29 09:27 Normal [facility] CT HEAD WO CONon 12-27-2021 CT HEAD [...] by: RAMIRO SPENCER Date: 2021-12-27 12:48 Normal [facility] Discharge Summaryon 08-18-19 18 Discharge Summary MR#: [id number] Land Admitted: 08/11/2017 Discharged: [...] intraperitoneal bleeding. [facility].Upon arrival to the [facility], no other injuries were noted. The patientwas [...] 4-6 hours as needed for pain and Sytorr689 mg b.i.d. for opioid related constipation.Electronical ly Signed by:Supa Branch M.D. 08/29/2017 12:01 P Supa Branch M.D. I personally saw this patient on the day of the encounter, performed thekey portion(s) of the service and participated in the management andconfirm the resident's documentation. Please note there may be anadditional personal documentation from me. Date Dict: 08/16/2017/10:11 Susan/Josh Palmer, MDDate Trans: 08/17/2017 06:00 Susan/Izabela_JN:[id number] Normal [facility] BASIC METABOLIC PANELon 03-0 Calcium 8.8 mg/dL Normal 8.6-10.3 [facility] Comment on above: Order Comment: No: D o not add to previous draw Performed By: #### 0 0121, 75752 ####[facility] [place] [address], [facility] Chloride 97 mmol/L Low 98-107 [facility] Comment on above: Order Comment: No: D o not add to previous draw Performed By: #### 0 0121, 26776 ####[facility] [place] [address], [facility] CO2 33 mmol/L High 21-31 [facility] Comment on above: Order Comment: No: D o not add to previous draw Performed By: #### 0 0121, 66527 ####[facility] [place] [address], [facility] Creatinine 0.75 mg/dL Normal 0.60-1.20 [facility] Comment on above: Order Comment: No: D o not add to previous draw Performed By: #### 0 0121, 36526 ####[facility] [place] [address], [facility] eGFR (black) mL/min/{1.73_m2} Normal >60 [facility] Comment on above: Order Comment: No: D o not add to previous draw Result Comment: Calc ulation may not be valid for patients over 70 years Performed By: #### 0 0121, 09840 ####[facility] eGFR (non-black) mL/min/{1.73_m2} Normal >60 Th [facility] Comment on above: Order Comment: No: D o not add to previous draw Result Comment: Calc ulation may not be valid for patients over 70 years Performed By: #### 0 0121, 82646 ####[facility] [place] [address], [facility] Glucose mass conc 91 mg/dL Normal 70-100 [facility] Comment on above: Order Comment: No: D o not add to previous draw Performed By: #### 0 0121, 73593 ####[facility] [place] [address], [facility] Potassium molar conc 2.8 mmol/L Low 3.5-5.1 [facility] Comment on above: Order Comment: No: D o not add to previous draw Performed By: #### 0 0121, 96996 ####[facility] [place] [address], [facility] Sodium 137 mmol/L Normal 136-145 [facility] Comment on above: Order Comment: No: D o not add to previous draw Performed By: #### 0 0121, 94285 ####[facility] [facility].[address] Urea nitrogen 13 mg/dL Normal 7-25 [facility] Comment on above: Order Comment: No: D o not add to previous draw Performed By: #### 0 0121, 76309 ####[facility] [facility].[address] CBC COMPLETE BLOOD COUNTon 0 - Erythrocyte distribution width Auto Ratio (RBC) 14.6 % Normal 11.5-15.0 [facility] Comment on above: Order Comment: No: D o not add to previous draw Performed By: #### 5 6101, 07850 ####[facility] [facility].[address] Erythrocytes (RBC) 4.05 10*6/uL Normal 3.80-5.00 [facility] Comment on above: Order Comment: No: D o not add to previous draw Performed By: #### 5 610, 19622 ####[facility] [facility].[address] Erythrocytes (RBC) 0 % Normal 0-0 [facility] Comment on above: Order Comment: No: D o not add to previous draw Performed By: #### 5 610, 96082 ####[facility] [facility].[address] Hematocrit (HCT) 36.8 % Normal 36.0-45.0 [facility] Comment on above: Order Comment: No: D o not add to previous draw Performed By: #### 5 610, 86087 ####[facility] [place] [address], [facility] Hemoglobin mass conc (Bld) 12.3 g/dL Normal 12.0-15.0 [facility] Comment on above: Order Comment: No: D o not add to previous draw Performed By: #### 5 610, 82757 ####[facility] MCH 30.4 pg Normal 27.0-33.0 [facility] Comment on above: Order Comment: No: D o not add to previous draw Performed By: #### 5 6100, 22884 ####[facility] MCHC mass conc (RBC) 33.4 g/dL Normal 32.0-35.0 [facility] Comment on above: Order Comment: No: D o not add to previous draw Performed By: #### 5 610, 82325 ####[address] MCV 90.9 fL Normal 82.0-98.0 [facility] Comment on above: Order Comment: No: D o not add to previous draw Performed By: #### 5 6100, 51223 ####[place] [address] [address] PLAT CNT 196 10*3/uL Normal 150-400 [facility] Comment on above: Order Comment: No: D o not add to previous draw Performed By: #### 5 610, 64727 ####[address] WBC (Leukocytes) 11.0 10*3/uL High 4.0-10.6 [facility] Comment on above: Order Comment: No: D o not add to previous draw Performed By: #### 5 610, 82284 ####[address] PORTABLE CHEST 1 VIEWon 03-0 PORTABLE CHEST 1 VIEW [facility] [place] [address] P atient Name: JUDITH LAND : 1945Sex: FAge: Race: WhiteMRN: [id number]. Location: [id number] Status: IVisit #: [id number] Date: 08/15/2017 7:05:00 AMCompleted Date: 08/15/2017 07:54 AMRequesting Provider: JOSH PALMER Attending Provider: ALEXANDER CABALLERO Report Copy To: Signs & Symptoms: O2 DesaturationHistory: Patient history not availableComments: R/O EffusionExam: PORTABLE CHEST 1 VIEWAccession #: [id number] ======PORTABLE CHEST 1 VIEW 08/15/2017 7:54 AM EST [...] findings. Electronically signed by:Nina Beaver. Transcribed by: [email or web address], User Resident: SAE MARElectronically Signed by: NINA BEAVER @ 08/15/2017 10:25 AMI personally read this/these film(s) with this resident Normal [facility] Comment on above: Order Comment: R/O E ffusion BASIC METABOLIC PANELon - Calcium 8.6 mg/dL Normal 8.6-10.3 [facility] Comment on above: Order Comment: No: D o not add to previous draw Performed By: #### 0 0121, 65290 ####[facility] [place] [address], [facility] Chloride 103 mmol/L Normal 98-107 [facility] Comment on above: Order Comment: No: D o not add to previous draw Performed By: #### 0 0121, 65283 ####[facility] [place] [address], [facility] CO2 30 mmol/L Normal 21-31 [facility] Comment on above: Order Comment: No: D o not add to previous draw Performed By: #### 0 0121, 73625 ####[facility] [facility] [place] [address], [facility] Creatinine 0.60 mg/dL Normal 0.60-1.20 [facility] Comment on above: Order Comment: No: D o not add to previous draw Performed By: #### 0 0121, 06456 ####[facility] [place] [address], [facility] eGFR (black) mL/min/{1.73_m2} Normal >60 [facility] Comment on above: Order Comment: No: D o not add to previous draw Result Comment: Calc ulation may not be valid for patients over 70 years Performed By: #### 0 0121, 60876 ####[facility] [place] [address], [facility] eGFR (non-black) mL/min/{1.73_m2} Normal >60 Th e [facility] Comment on above: Order Comment: No: D o not add to previous draw Result Comment: Calc ulation may not be valid for patients over 70 years Performed By: #### 0 0121, 71112 ####[facility] [place] [address], [facility] Glucose mass conc 81 mg/dL Normal 70-100 [facility] Comment on above: Order Comment: No: D o not add to previous draw Performed By: #### 0 0121, 11405 ####[facility] [place] [address], [facility] Potassium molar conc 3.0 mmol/L Low 3.5-5.1 [facility] Comment on above: Order Comment: No: D o not add to previous draw Performed By: #### 0 0121, 27654 ####[facility] Sodium 138 mmol/L Normal 136-145 [facility] Comment on above: Order Comment: No: D o not add to previous draw Performed By: #### 0 0121, 24495 ####[facility] [facility].[address] Urea nitrogen 12 mg/dL Normal 7-25 [facility] Comment on above: Order Comment: No: D o not add to previous draw Performed By: #### 0 0121, 24760 ####[facility] CBC COMPLETE BLOOD COUNTon 0 - Erythrocyte distribution width Auto Ratio (RBC) 14.9 % Normal 11.5-15.0 [facility] Comment on above: Order Comment: No: D o not add to previous draw Performed By: #### 0 0121, 82550 ####[facility] [place] [address], [facility] Erythrocytes (RBC) 3.80 10*6/uL Normal 3.80-5.00 [facility] Comment on above: Order Comment: No: D o not add to previous draw Performed By: #### 0 0121, 89657 ####[facility] [facility].[address] Erythrocytes (RBC) 0 % Normal 0-0 [facility] Comment on above: Order Comment: No: D o not add to previous draw Performed By: #### 0 0121, 36796 ####[facility] [facility].[address] Hematocrit (HCT) 34.3 % Low 36.0-45.0 [facility] Comment on above: Order Comment: No: D o not add to previous draw Performed By: #### 0 0121, 73197 ####[facility] Hemoglobin mass conc (Bld) 11.7 g/dL Low 12.0-15.0 [facility] Comment on above: Order Comment: No: D o not add to previous draw Performed By: #### 0 0121, 25488 ####[facility] [facility].[address] MCH 30.8 pg Normal 27.0-33.0 [facility] Comment on above: Order Comment: No: D o not add to previous draw Performed By: #### 0 0121, 50106 ####[facility] MCHC mass conc (RBC) 34.1 g/dL Normal 32.0-35.0 [facility] Comment on above: Order Comment: No: D o not add to previous draw Performed By: #### 0 0121, 44845 ####[facility] MCV 90.3 fL Normal 82.0-98.0 [facility] Comment on above: Order Comment: No: D o not add to previous draw Performed By: #### 0 0121, 40345 ####[facility] PLAT CNT 134 10*3/uL Low 150-400 [facility] Comment on above: Order Comment: No: D o not add to previous draw Performed By: #### 0 0121, 32252 ####[address] WBC (Leukocytes) 11.5 10*3/uL High 4.0-10.6 [facility] Comment on above: Order Comment: No: D o not add to previous draw Performed By: #### 0 0121, 40221 ####[address] MAGNESIUM BLOODon 08-14-2017 Magnesium 1.9 mg/dL Normal 1.9-2.7 [facility] Comment on above: Order Comment: No: D o not add to previous draw Performed By: #### 0 0121, 18590 ####[address] PHOSPHORUS BLOODon 8 Phosphate 2.5 mg/dL Normal 2.5-5.0 [facility] Comment on above: Order Comment: No: D o not add to previous draw Performed By: #### 0 0121, 24041 ####[address] PORTABLE CHEST 1 VIEWon PORTABLE CHEST 1 VIEW [facility] Pdjghlcur[address] [place] [address] P atient Name: JUDITH LAND : 1945Sex: FAge: Race: WhiteMRN: [id number]. Location: [id number] Status: IVisit #: [id number] Date: 08/14/2017 8:00:00 AMCompleted Date: 08/14/2017 08:34 AMRequesting Provider: JOSH PALMER Attending Provider: ALEXANDER CABALLERO Report Copy To: Signs & Symptoms: O2 DesaturationHistory: Patient history not availableComments: R/O AtelectasisExam: PORTABLE CHEST 1 VIEWAccession #: [id number] ======PORTABLE CHEST 1 VIEW 08/14/2017 8:34 AM EST [...] findings. Electronically signed by:Yeimi Nascimento. Transcribed by: [email or web address], User Resident: SAE MARElectronically Signed by: YEIMI NASCIMENTO @ 08/14/2017 09:18 PMI personally read this/these film(s) with this resident Normal [facility] Comment on above: Order Comment: R/O A telectasis BASIC METABOLIC PANELon 03-0 Calcium 8.4 mg/dL Low 8.6-10.3 [facility] Comment on above: Order Comment: No: D o not add to previous draw Performed By: #### 0 0121, 55360 ####[facility] [place] [address], [facility] Chloride 109 mmol/L High 98-107 [facility] Comment on above: Order Comment: No: D o not add to previous draw Performed By: #### 0 0121, 01674 ####[facility] [place] [address], [facility] CO2 30 mmol/L Normal 21-31 [facility] Comment on above: Order Comment: No: D o not add to previous draw Performed By: #### 0 0121, 85473 ####[facility] [place] [address], [facility] Creatinine 0.62 mg/dL Normal 0.60-1.20 [facility] Comment on above: Order Comment: No: D o not add to previous draw Performed By: #### 0 0121, 98340 ####[facility] eGFR (black) mL/min/{1.73_m2} Normal >60 [facility] Comment on above: Order Comment: No: D o not add to previous draw Result Comment: Calc ulation may not be valid for patients over 70 years Performed By: #### 0 0121, 30983 ####[facility] [place] [address], [facility] eGFR (non-black) mL/min/{1.73_m2} Normal >60 Th e [facility] Comment on above: Order Comment: No: D o not add to previous draw Result Comment: Calc ulation may not be valid for patients over 70 years Performed By: #### 0 0121, 71532 ####[facility] [place] [address], [facility] Glucose mass conc 99 mg/dL Normal 70-100 [facility] Comment on above: Order Comment: No: D o not add to previous draw Performed By: #### 0 0121, 44001 ####[facility] [place] [address], [facility] Potassium molar conc 3.2 mmol/L Low 3.5-5.1 [facility] Comment on above: Order Comment: No: D o not add to previous draw Performed By: #### 0 0121, 52277 ####[facility] [place] [address], [facility] Sodium 143 mmol/L Normal 136-145 [facility] Comment on above: Order Comment: No: D o not add to previous draw Performed By: #### 0 0121, 36755 ####[facility] [place] [address], [facility] Urea nitrogen 14 mg/dL Normal 7-25 [facility] Comment on above: Order Comment: No: D o not add to previous draw Performed By: #### 0 0121, 02216 ####[facility] CBC COMPLETE BLOOD COUNTon 0 - Erythrocyte distribution width Auto Ratio (RBC) 15.9 % High 11.5-15.0 [facility] Comment on above: Order Comment: No: D o not add to previous draw Performed By: #### 0 0121, 03948 ####[facility] [place] [address], [facility] Erythrocytes (RBC) 0 % Normal 0-0 [facility] Comment on above: Order Comment: No: D o not add to previous draw Performed By: #### 0 0121, 89879 ####[facility] Erythrocytes (RBC) 3.76 10*6/uL Low 3.80-5.00 [facility] Comment on above: Order Comment: No: D o not add to previous draw Performed By: #### 0 0121, 22705 ####[facility] Hematocrit (HCT) 34.3 % Low 36.0-45.0 [facility] Comment on above: Order Comment: No: D o not add to previous draw Performed By: #### 0 0121, 10056 ####[facility] [facility].[address] Hemoglobin mass conc (Bld) 11.4 g/dL Low 12.0-15.0 [facility] Comment on above: Order Comment: No: D o not add to previous draw Performed By: #### 0 0121, 17801 ####[facility] [facility].[address] MCH 30.3 pg Normal 27.0-33.0 [facility] Comment on above: Order Comment: No: D o not add to previous draw Performed By: #### 0 0121, 08019 ####[facility] [facility].[address] MCHC mass conc (RBC) 33.2 g/dL Normal 32.0-35.0 [facility] Comment on above: Order Comment: No: D o not add to previous draw Performed By: #### 0 0121, 40298 ####[facility] [facility].[address] MCV 91.2 fL Normal 82.0-98.0 [facility] Comment on above: Order Comment: No: D o not add to previous draw Performed By: #### 0 0121, 48644 ####[facility] [place] [address], [place] PLAT CNT 95 10*3/uL Low 150-400 [facility] Comment on above: Order Comment: No: D o not add to previous draw Performed By: #### 0 0121, 62558 ####[facility] WBC (Leukocytes) 9.1 10*3/uL Normal 4.0-10.6 [facility] Comment on above: Order Comment: No: D o not add to previous draw Performed By: #### 0 0121, 15267 ####[facility] [facility].[address] MAGNESIUM BLOODon 08-13-2017 Magnesium 1.8 mg/dL Low 1.9-2.7 [facility] Comment on above: Order Comment: No: D o not add to previous draw Performed By: #### 0 0121, 27572 ####[facility] [facility].[address] PHOSPHORUS BLOODon 8 Phosphate 1.9 mg/dL Low 2.5-5.0 [facility] Comment on above: Order Comment: No: D o not add to previous draw Performed By: #### 0 0121, 69933 ####[facility] [facility].[address] BASIC METABOLIC PANELon Calcium 8.4 mg/dL Low 8.6-10.3 [facility] Comment on above: Order Comment: No: D o not add to previous draw Performed By: #### 0 0121, 63643 ####[facility] [facility].[address] Chloride 113 mmol/L High 98-107 [facility] Comment on above: Order Comment: No: D o not add to previous draw Performed By: #### 0 0121, 07614 ####[facility] [facility].[address] CO2 25 mmol/L Normal 21-31 [facility] Comment on above: Order Comment: No: D o not add to previous draw Performed By: #### 0 0121, 55762 ####[facility] [facility].[address] Creatinine 0.75 mg/dL Normal 0.60-1.20 [facility] Comment on above: Order Comment: No: D o not add to previous draw Performed By: #### 0 0121, 65875 ####[facility] [facility].[address] eGFR (black) mL/min/{1.73_m2} Normal >60 [facility] Comment on above: Order Comment: No: D o not add to previous draw Result Comment: Calc ulation may not be valid for patients over 70 years Performed By: #### 0 0121, 98908 ####[facility] [facility].[address] eGFR (non-black) mL/min/{1.73_m2} Normal >60 Th e [facility] Comment on above: Order Comment: No: D o not add to previous draw Result Comment: Calc ulation may not be valid for patients over 70 years Performed By: #### 0 0121, 76415 ####[facility] [facility].[address] Glucose mass conc 116 mg/dL High 70-100 [facility] Comment on above: Order Comment: No: D o not add to previous draw Performed By: #### 0 0121, 73774 ####[facility] [place] [address], [facility] Potassium molar conc 3.6 mmol/L Normal 3.5-5.1 [facility] Comment on above: Order Comment: No: D o not add to previous draw Performed By: #### 0 0121, 21208 ####[facility] [facility].[address] Sodium 144 mmol/L Normal 136-145 [facility] Comment on above: Order Comment: No: D o not add to previous draw Performed By: #### 0 0121, 77245 ####[facility] Urea nitrogen 16 mg/dL Normal 7-25 [facility] Comment on above: Order Comment: No: D o not add to previous draw Performed By: #### 0 0121, 87017 ####[facility] [facility].[address] CBC COMPLETE BLOOD COUNTon 0 08-12-2017 Erythrocyte distribution width Auto Ratio (RBC) 16.3 % High 11.5-15.0 [facility] Comment on above: Order Comment: No: D o not add to previous draw Performed By: #### 0 0121, 94491 ####[facility] [facility].[address] Erythrocytes (RBC) 4.15 10*6/uL Normal 3.80-5.00 [facility] Comment on above: Order Comment: No: D o not add to previous draw Performed By: #### 0 0121, 74661 ####[facility] [facility].[address] Erythrocytes (RBC) 0 % Normal 0-0 [facility] Comment on above: Order Comment: No: D o not add to previous draw Performed By: #### 0 0121, 19545 ####[facility] Hematocrit (HCT) 37.6 % Normal 36.0-45.0 [facility] Comment on above: Order Comment: No: D o not add to previous draw Performed By: #### 0 0121, 63118 ####[facility] Hemoglobin mass conc (Bld) 12.5 g/dL Normal 12.0-15.0 [facility] Comment on above: Order Comment: No: D o not add to previous draw Performed By: #### 0 0121, 58035 ####[facility] MCH 30.1 pg Normal 27.0-33.0 [facility] Comment on above: Order Comment: No: D o not add to previous draw Performed By: #### 0 0121, 83309 ####[facility] MCHC mass conc (RBC) 33.2 g/dL Normal 32.0-35.0 [facility] Comment on above: Order Comment: No: D o not add to previous draw Performed By: #### 0 0121, [id number] ####[facility] MCV 90.6 fL Normal 82.0-98.0 [facility] Comment on above: Order Comment: No: D o not add to previous draw Performed By: #### 0 0121, [id number] ####[facility] PLAT CNT 89 10*3/uL Low 150-400 [facility] Comment on above: Order Comment: No: D o not add to previous draw Performed By: #### 0 0121, [id number] ####[facility] WBC (Leukocytes) 13.5 10*3/uL High 4.0-10.6 [facility] Comment on above: Order Comment: No: D o not add to previous draw Performed By: #### 0 0121, 06309 ####[facility] [place] [address], [facility] HEMATOCRITon 08-12-2017 Hematocrit (HCT) 37.6 % Normal 36.0-45.0 [facility] Comment on above: Order Comment: No: D o not add to previous draw Performed By: #### 0 0121, 51979 ####[facility] HEMOGLOBINon 08-12-2017 Hemoglobin mass conc (Bld) 12.6 g/dL Normal 12.0-15.0 [facility] Comment on above: Order Comment: No: D o not add to previous drawLAB DRAW NOW - PER CECY MCELROY Performed By: #### 0 0121, [id number] ####[facility] MAGNESIUM BLOODon 08-12-2017 Magnesium 1.9 mg/dL Normal 1.9-2.7 [facility] Comment on above: Order Comment: No: D o not add to previous draw Performed By: #### 0 0121, 86121 ####[facility] PHOSPHORUS BLOODon 8 Phosphate 2.1 mg/dL Low 2.5-5.0 [facility] Comment on above: Order Comment: No: D o not add to previous draw Performed By: #### 0 0121, 95249 ####[address] PORTABLE CHEST 1 VIEWon PORTABLE CHEST 1 VIEW [facility] [id number] [place] [address] P atient Name: JUDITH LAND : 1945Sex: FAge: Race: WhiteMRN: [id number]. Location: [id number] Status: IVisit #: [id number] Date: 08/12/2017 7:00:00 AMCompleted Date: 08/12/2017 09:16 AMRequesting Provider: SHANON HERNANDEZ Attending Provider: ALEXANDER CABALLERO Report Copy To: Signs & Symptoms: O2 DesaturationHistory: Patient history not availableComments: R/O AtelectasisExam: PORTABLE CHEST 1 VIEWAccession #: [id number] ======PORTABLE CHEST 1 VIEW 08/12/2017 9:16 AM EST [...] findings. Electronically signed by:Yeimi Nascimento. Transcribed by: [email or web address], User Resident: ANDRZEJ TAYLORElectronically Signed by: YEIMI NASCIMENTO @ 08/12/2017 12:27 PMI personally read this/these film(s) with this resident Normal [facility] Comment on above: Order Comment: R/O A telectasis ALCOHOLon 08-11-2017 Ethanol NONE DETECTED Normal [facility] Comment on above: Result Comment: Divi de by 1000 to convert mg/dL to percent. Example: 100mg/dL = 0.1%. Performed By: #### 1 53, ####[facility] [facility].[address] APTTon 08-11-2017 aPTT 42.8 s High 25.0-35.0 [facility] Comment on above: Order Comment: No: [...] THIS PURPOSE. Performed By: #### 1 53, ####[facility] [facility].[address] aPTT 27.2 s Normal 25.0-35.0 [facility] Comment on above: Result Comment: ALL [...] THIS PURPOSE. Performed By: #### 5 6101, 72030 ####[facility] [facility].[address] ARTERIAL BLOOD GAS WITH ICAo n 08-11-2017 BASE EXCESS -7 mmol/L Low -2-2 [facility] Comment on above: Performed By: #### 1 53, ####[facility] [facility].[address] Bicarbonate (HCO3) 18 mmol/L Low 23-27 [facility] Comment on above: Performed By: #### 1 53, ####[facility] CO2 34 mmHg Low 35-45 [facility] Comment on above: Performed By: #### 1 53, ####[facility] [place] [address], [facility] [employer] MV Normal [facility] Comment on above: Performed By: #### 1 53, ####[facility] [place] [address], [facility] FIO2 40 % Normal 21-100 [facility] Comment on above: Performed By: #### 1 53, ####[facility] [place] [address], [facility] IONIZED CALCIUM 1.13 mmol/L Normal 1.13-1.32 [facility] Comment on above: Performed By: #### 1 53, ####[facility] [place] [address], [facility] MIN VOLUME 7.2 Normal [facility] Comment on above: Performed By: #### 1 ####[facility] [place] [address], [facility] MODALITY AC Normal [facility] Comment on above: Performed By: #### 1 ####[facility] [place] [address], [facility] O2 saturation 95.5 % Normal 94.0-97.0 [facility] Comment on above: Performed By: #### 1 ####[facility] [place] [address], [facility] Oxygen in arterial blood 161 mm[Hg] Critically high 75-100 [facility] Comment on above: Performed By: #### 1 53, ####[facility] [place] [address], [place] PEEP 5.0 CMH20 Normal [facility] Comment on above: Performed By: #### 1 53, ####[facility] [facility].[address] PF RATIO 403 mmHg High 50-400 [facility] Comment on above: Performed By: #### 1 53, ####[facility] [facility].[address] pH of blood 7.33 [pH] Low 7.35-7.45 [facility] Comment on above: Performed By: #### 1 53, ####[facility] [facility].[address] Respiratory rate 16 /min Normal [facility] Comment on above: Performed By: #### 1 53, ####[facility] [facility].[address] TIDAL VOLUME (VT) CC 450 Normal [facility] Comment on above: Performed By: #### 1 53, ####[facility] [facility].[address] BASE EXCESS -9 mmol/L Low -2-2 [facility] Comment on above: Order Comment: RESUL TS CHECKED AND CALLED. ACCURATELY READ BACK BY DAT Performed By: #### 1 53, ####[facility] [facility].[address] Bicarbonate (HCO3) 18 mmol/L Low 23-27 [facility] Comment on above: Order Comment: RESUL TS CHECKED AND CALLED. ACCURATELY READ BACK BY DAT Performed By: #### 1 ####[facility] [facility] [place] [address], [facility] CO2 44 mmHg Normal 35-45 [facility] Comment on above: Order Comment: RESUL TS CHECKED AND CALLED. ACCURATELY READ BACK BY DAT Performed By: #### 1 53, ####[facility] IONIZED CALCIUM 1.05 mmol/L Low 1.13-1.32 [facility] Comment on above: Order Comment: RESUL TS CHECKED AND CALLED. ACCURATELY READ BACK BY DAT Performed By: #### 1 53, ####[facility] O2 saturation 96.9 % Normal 94.0-97.0 [facility] Comment on above: Order Comment: RESUL TS CHECKED AND CALLED. ACCURATELY READ BACK BY DAT Performed By: #### 1 53, ####[facility] Oxygen in arterial blood 532 mm[Hg] Critically high 75-100 [facility] Comment on above: Order Comment: RESUL TS CHECKED AND CALLED. ACCURATELY READ BACK BY DAT Performed By: #### 1 53, ####[facility] pH of blood 7.22 [pH] Critically low 7.35-7.45 [facility] Comment on above: Order Comment: RESUL TS CHECKED AND CALLED. ACCURATELY READ BACK BY DAT Performed By: #### 1 53, ####[facility] BASIC METABOLIC PANELon 03-0 Calcium 8.1 mg/dL Low 8.6-10.3 [facility] Comment on above: Order Comment: No: D o not add to previous draw Performed By: #### 1 53, ####[facility] [place] [address], [facility] Chloride 116 mmol/L High 98-107 [facility] Comment on above: Order Comment: No: D o not add to previous draw Performed By: #### 1 53, ####[facility] [place] [address], [facility] Creatinine 0.85 mg/dL Normal 0.60-1.20 [facility] Comment on above: Order Comment: No: D o not add to previous draw Performed By: #### 1 53, ####[facility] [place] [address], [place] Glucose mass conc 109 mg/dL High 70-100 [facility] Comment on above: Order Comment: No: D o not add to previous draw Performed By: #### 1 53, ####[facility] [id number], [facility] Potassium molar conc 4.9 mmol/L Normal 3.5-5.1 [facility] Comment on above: Order Comment: No: D o not add to previous draw Performed By: #### 1 53, ####[facility] [place] [address], [facility] Sodium 142 mmol/L Normal 136-145 [facility] Comment on above: Order Comment: No: D o not add to previous draw Performed By: #### 1 53, ####[facility] [place] [address], [facility] Urea nitrogen 16 mg/dL Normal 7-25 [facility] Comment on above: Order Comment: No: D o not add to previous draw Performed By: #### 1 53, ####[facility] [id number], [place] Calcium 7.9 mg/dL Low 8.6-10.3 [facility] Comment on above: Order Comment: No: D o not add to previous draw Performed By: #### 1 53, ####[facility] [place] [address], [facility] Chloride 113 mmol/L High 98-107 [facility] Comment on above: Order Comment: No: D o not add to previous draw Performed By: #### 1 53, ####[facility] [id number], [facility] CO2 22 mmol/L Normal 21-31 [facility] Comment on above: Order Comment: No: D o not add to previous draw Performed By: #### 1 53, ####[facility] [place] [address], [facility] Creatinine 0.68 mg/dL Normal 0.60-1.20 [facility] Comment on above: Order Comment: No: D o not add to previous draw Performed By: #### 1 53, ####[facility] [facility] [place] [address], [facility] eGFR (black) mL/min/{1.73_m2} Normal >60 [facility] Comment on above: Order Comment: No: D o not add to previous draw Result Comment: Calc ulation may not be valid for patients over 70 years Performed By: #### 1 53, ####[place] [address] [facility] [place] [address], [facility] eGFR (non-black) mL/min/{1.73_m2} Normal >[address] [facility] Comment on above: Order Comment: No: D o not add to previous draw Result Comment: Calc ulation may not be valid for patients over 70 years Performed By: #### 1 53, ####[facility] [id number], [facility] Glucose mass conc 141 mg/dL High 70-100 [facility] Comment on above: Order Comment: No: D o not add to previous draw Performed By: #### 1 53, ####[facility] Potassium molar conc 3.3 mmol/L Low 3.5-5.1 [facility] Comment on above: Order Comment: No: D o not add to previous draw Performed By: #### 1 53, ####[facility] Sodium 139 mmol/L Normal 136-145 [facility] Comment on above: Order Comment: No: D o not add to previous draw Performed By: #### 1 53, ####[facility] Urea nitrogen 12 mg/dL Normal 7-25 [facility] Comment on above: Order Comment: No: D o not add to previous draw Performed By: #### 1 53, ####[facility] CBC W/DIFFon 08-11-2017 ABS BASOPHILS 0.0 10*3/uL Normal 0.0-0.2 [facility] Comment on above: Performed By: #### 1 53, ####[facility] ABS IMM GRANS 0.0 10*3/uL Normal 0.0-0.2 [facility] Comment on above: Performed By: #### 1 53, ####[facility] [facility].[address] Basophils Auto #/vol (Bld) 0.1 % Normal 0.0-1.0 [facility] Comment on above: Performed By: #### 1 53, ####[facility] Eosinophils 0.0 10*3/uL Normal 0.0-0.5 [facility] Comment on above: Performed By: #### 1 ####[facility] [facility].[address] Eosinophils/100 leukocytes 0.1 % Normal 0.0-6.0 [facility] Comment on above: Performed By: #### 1 ####[facility] [facility].[address] Erythrocyte distribution width Auto Ratio (RBC) 15.1 % High 11.5-15.0 [facility] Comment on above: Performed By: #### 1 ####[facility] Erythrocytes (RBC) 0 % Normal 0-0 [facility] Comment on above: Performed By: #### 1 ####[address] Erythrocytes (RBC) 4.46 10*6/uL Normal 3.80-5.00 [facility] Comment on above: Performed By: #### 1 ####[place] [id number] [facility].[address] Hematocrit (HCT) 40.3 % Normal 36.0-45.0 [facility] Comment on above: Performed By: #### 1 ####[facility] [facility].[address] Hemoglobin mass conc (Bld) 13.5 g/dL Normal 12.0-15.0 [facility] Comment on above: Performed By: #### 1 ####[facility] IMMATURE GRANS 0.2 % Normal 0.0-1.0 [facility] Comment on above: Performed By: #### 1 ####[facility] [facility].[address] Lymphocytes 0.9 10*3/uL Low 1.2-4.0 [facility] Comment on above: Performed By: #### 1 ####[facility] [facility].[address] Lymphocytes/100 leukocytes 5.8 % Low 20.0-45.0 [facility] Comment on above: Performed By: #### 1 ####[facility] [facility].[address] MCH 30.3 pg Normal 27.0-33.0 [facility] Comment on above: Performed By: #### 1 ####[facility] [facility].[address] MCHC mass conc (RBC) 33.5 g/dL Normal 32.0-35.0 [facility] Comment on above: Performed By: #### 1 ####[facility] [facility].[address] MCV 90.4 fL Normal 82.0-98.0 [facility] Comment on above: Performed By: #### 1 ####[facility] [facility].[address] Monocytes 0.7 10*3/uL Normal 0.1-1.0 [facility] Comment on above: Performed By: #### 1 ####[facility] [facility].[address] MONOS 4.6 % Low 5.0-12.0 [facility] Comment on above: Performed By: #### 1 ####[facility] [facility].[address] Neutrophils 13.6 10*3/uL High 1.6-7.6 [facility] Comment on above: Performed By: #### 1 53, ####[facility] Neutrophils/100 leukocytes 89.2 % High 40.0-72.0 [facility] Comment on above: Performed By: #### 1 53, ####[facility] PLAT CNT 94 10*3/uL Low 150-400 [facility] Comment on above: Result Comment: P = 126 Performed By: #### 1 53, ####[facility] WBC (Leukocytes) 15.2 10*3/uL High 4.0-10.6 [facility] Comment on above: Performed By: #### 1 53, ####[facility] ABS BASOPHILS 0.0 10*3/uL Normal 0.0-0.2 [facility] Comment on above: Performed By: #### 5 102 ####[facility] ABS IMM GRANS 0.1 10*3/uL Normal 0.0-0.2 [facility] Comment on above: Performed By: #### 5 102 ####[facility] Basophils Auto #/vol (Bld) 0.3 % Normal 0.0-1.0 [facility] Comment on above: Performed By: #### 5 102 ####[facility] Eosinophils 0.0 10*3/uL Normal 0.0-0.5 [facility] Comment on above: Performed By: #### 5 0103 ####[facility] Eosinophils/100 leukocytes 0.2 % Normal 0.0-6.0 [facility] Comment on above: Performed By: #### 5 0103 ####[facility] Erythrocyte distribution width Auto Ratio (RBC) 14.3 % Normal 11.5-15.0 [facility] Comment on above: Performed By: #### 5 0103 ####[facility] Erythrocytes (RBC) 3.50 10*6/uL Low 3.80-5.00 [facility] Comment on above: Performed By: #### 5 0103 ####[facility] Erythrocytes (RBC) 0 % Normal 0-0 [facility] Comment on above: Performed By: #### 5 0103 ####[facility] Hematocrit (HCT) 32.5 % Low 36.0-45.0 [facility] Comment on above: Performed By: #### 5 0103 ####[facility] Hemoglobin mass conc (Bld) 10.9 g/dL Low 12.0-15.0 [facility] Comment on above: Performed By: #### 5 0103 ####[facility] IMMATURE GRANS 0.4 % Normal 0.0-1.0 [facility] Comment on above: Performed By: #### 5 0103 ####[facility] [facility].[address] Lymphocytes 2.3 10*3/uL Normal 1.2-4.0 [facility] Comment on above: Performed By: #### 5 0103 ####[facility] [facility].[address] Lymphocytes/100 leukocytes 17.6 % Low 20.0-45.0 [facility] Comment on above: Performed By: #### 5 0103 ####[facility] [facility].[address] MCH 31.1 pg Normal 27.0-33.0 [facility] Comment on above: Performed By: #### 102 ####[facility] [facility].[address] MCHC mass conc (RBC) 33.5 g/dL Normal 32.0-35.0 [facility] Comment on above: Performed By: #### 5 0103 ####[facility] MCV 92.9 fL Normal 82.0-98.0 [facility] Comment on above: Performed By: #### 5 3 ####[facility] [facility].[address] Monocytes 0.8 10*3/uL Normal 0.1-1.0 [facility] Comment on above: Performed By: #### 5 3 ####[facility] MONOS 6.1 % Normal 5.0-12.0 [facility] Comment on above: Performed By: #### 5 3 ####[facility] [facility].[address] Neutrophils 9.7 10*3/uL High 1.6-7.6 [facility] Comment on above: Performed By: #### 5 102 ####[facility] Neutrophils/100 leukocytes 75.4 % High 40.0-72.0 [facility] Comment on above: Performed By: #### 5 0103 ####[facility] [facility].[address] PLAT CNT 126 10*3/uL Low 150-400 [facility] Comment on above: Performed By: #### 5 0103 ####[facility] WBC (Leukocytes) 12.9 10*3/uL High 4.0-10.6 [facility] Comment on above: Performed By: #### 5 0103 ####[address] COMP METABOLIC PANELon 08-11 Alanine aminotransferase (ALT) 8 U/L Normal 7-52 [facility] Comment on above: Performed By: #### 0 0121, [address]85 ####[place] [address] [address] Albumin 2.6 g/dL Low 3.5-5.7 [facility] Comment on above: Performed By: #### 0 0121, 00449 ####[facility] ALKALINE PHOSPH 34 IU/L Normal 34-104 [facility] Comment on above: Performed By: #### 0 0121, 19780 ####[facility] [facility].[address] Aspartate aminotransferase (AST) 11 U/L Low 13-39 [facility] Comment on above: Performed By: #### 0 0121, 88037 ####[facility] [place] [address], [facility] Bilirubin (total) 0.7 mg/dL Normal 0.3-1.0 [facility] Comment on above: Performed By: #### 0 0121, 55968 ####[facility] [place] [address], [facility] Calcium 7.4 mg/dL Low 8.6-10.3 [facility] Comment on above: Performed By: #### 0 0121, 64602 ####[facility] [place] [address], [facility] Chloride 112 mmol/L High 98-107 [facility] Comment on above: Performed By: #### 0 0121, 98059 ####[facility] [place] [address], [facility] CO2 22 mmol/L Normal 21-31 [facility] Comment on above: Performed By: #### 0 0121, 65218 ####[facility] [place] [address], [facility] Creatinine 0.83 mg/dL Normal 0.60-1.20 [facility] Comment on above: Performed By: #### 0 0121, 78148 ####[facility] [place] [address], [facility] eGFR (black) mL/min/{1.73_m2} Normal >60 [facility] Comment on above: Result Comment: Calc ulation may not be valid for patients over 70 years Performed By: #### 0 0121, 90287 ####[facility] [place] [address], [facility] eGFR (non-black) mL/min/{1.73_m2} Normal >60 Th e [facility] Comment on above: Result Comment: Calc ulation may not be valid for patients over 70 years Performed By: #### 0 0121, 60927 ####[facility] [place] [address], [facility] Glucose mass conc 138 mg/dL High 70-100 [facility] Comment on above: Performed By: #### 0 0121, 05352 ####[facility] [place] [address], [facility] Potassium molar conc 4.0 mmol/L Normal 3.5-5.1 [facility] Comment on above: Performed By: #### 0 0121, [id number] ####[facility] [place] [address], [facility] Protein 4.1 g/dL Low 6.0-8.3 [facility] Comment on above: Performed By: #### 0 0121, 32537 ####[facility] [facility] [place] [address], [facility] Sodium 138 mmol/L Normal 136-145 [facility] Comment on above: Performed By: #### 0 0121, 08514 ####[facility] [place] [address], [facility] Urea nitrogen 16 mg/dL Normal 7-25 [facility] Comment on above: Performed By: #### 0 0121, 71280 ####[facility] [facility] Consultationon 08-11-2017 Consultation MR#: [id number] Date of Service: 08/10/2017 Room #: [id number] [id number] Birthdate: 1945 Referring Physician: JAYE FOR CONSULTATION: Critical care management status post splenectomy,ventilatory management.HISTORY OF PRESENT ILLNESS: Ms. Judith Land is a 72-year-old female witha history of hypertension, hyperlipidemia, diabetes, and COPD, whopresented as a transfer from [place], [place] with a traumatic brain injury.The patient [...] days. She presented to the hospital in [place], [place], and aCT abdomen and pelvis was obtained that demonstrated a grade 5 spleniclaceration. The patient was initially hemodynamically stable per reportsfrom the outside facility, however she became markedly hypotensive,unresponsive to multiple fluid boluses, and was transferred [facility] as a level 1 trauma. When she arrived in theTrauma Drain, she had received 3 L of crystalloid and 4 units of blood atthat time and only transiently responded to this fluid resuscitation. Shewas hypotensive in the Trauma Drain and an emergent right femoral Cordis wasplaced [...] chronic obstructivepulmonary disease, not on home O2; ioj-whmkfbx-navcprasn diabetes mellitus,type 2; anxiety.PAST SURGICAL HISTORY: Hysterectomy, [...] dry, and intact with left-sided OWEN drain withbloody/serosanguineou s output.PELVIS: Stable. Monroe catheter in place with [...] outside facilityreviewed with attending surgeon in Trauma Drain with evidence of rupturedspleen with blood products [...] past. GCS is 15reported in the Trauma Drain, currently GCS is 3T, intubated and sedated.She [...] ventilator associated pneumonia: Peridex b.i.d., headof bed elevated.Gastrointestinal : Currently status post exploratory laparotomy andsplenectomy for [...] the setting ofcritical care status.Endocrine: History of lre-rofxcmd-mizhzlysf diabetes mellitus, type 2, onhome metformin. We [...] was placed in emergent setting in theTrauma Drain, this will be removed/replaced within 24 hours after placement.Peripheral IV x2. Monroe catheter for above listed indication.Gastrointestin al prophylaxis: Protonix 40 mg IV once daily for stressulcer prophylaxis.Venous thrombosis prophylaxis: External pneumatic compression devices areplaced, pharmacologic prophylaxis contraindicated at this time due to highrisk for bleed in setting of acute blood loss anemia. Ventilatorassociated pneumonia prophylaxis as listed above.The patient seen and examined with plan of care discussed with attending,Dr. Caballero.Electronically Signed by:Alexander Caballero M.D. 08/12/2017 05:12 P ___Alexander Caballero M.D. I personally saw this patient on the day of the encounter, performed thekey portion(s) of the service and participated in the management andconfirm the resident's documentation. Please note there may be anadditional personal documentation from me. Date Dict: 08/11/2017/04:38 Susan/Pippa Gutierrez Trans: 08/11/2017 02:22 P/mmoDN_[id number] Normal [facility] FRESH FROZEN PLASMA 2 UNITSo n 08-11-2017 PRODUCT CODE 1 E2701 Normal [facility] Comment on above: Order Comment: INR: 1.22 ,PTT: 27.2 at the time of order ;Indication: Activebleeding/invasive procedure with prolonged PT/PTT or INR > 1.6 Performed By: #### 1 53, ####[facility] PRODUCT CODE 2 E2701 Normal [facility] Comment on above: Order Comment: INR: 1.22 ,PTT: 27.2 at the time of order ;Indication: Activebleeding/invasive procedure with prolonged PT/PTT or INR > 1.6 Performed By: #### 1 53, ####[facility] [facility].[address] PRODUCT STATUS 1 PT Normal [facility] Comment on above: Order Comment: INR: 1.22 ,PTT: 27.2 at the time of order ;Indication: Activebleeding/invasive procedure with prolonged PT/PTT or INR > 1.6 Result Comment: Resu lt changed by IF on 08/11/2017 00:27. The previous value was XX.Result changed by IF on 08/12/2017 02:00. The previous value was IS. Performed By: #### 1 53, ####[facility] PRODUCT STATUS 2 PT Normal [facility] Comment on above: Order Comment: INR: 1.22 ,PTT: 27.2 at the time of order ;Indication: Activebleeding/invasive procedure with prolonged PT/PTT or INR > 1.6 Result Comment: Resu lt changed by IF on 08/11/2017 03:17. The previous value was XM.Result changed by IF on 08/13/2017 02:00. The previous value was IS. Performed By: #### 1 53, ####[facility] UNIT ABO 1 O Normal [facility] Comment on above: Order Comment: INR: 1.22 ,PTT: 27.2 at the time of order ;Indication: Activebleeding/invasive procedure with prolonged PT/PTT or INR > 1.6 Performed By: #### 1 ####[facility] UNIT ABO 2 O Normal [facility] Comment on above: Order Comment: INR: 1.22 ,PTT: 27.2 at the time of order ;Indication: Activebleeding/invasive procedure with prolonged PT/PTT or INR > 1.6 Performed By: #### 1 ####[facility] UNIT ID 1 [id number] Normal [facility] Comment on above: Order Comment: INR: 1.22 ,PTT: 27.2 at the time of order ;Indication: Activebleeding/invasive procedure with prolonged PT/PTT or INR > 1.6 Performed By: #### 1 ####[facility] UNIT ID 2 [id number] Normal [facility] Comment on above: Order Comment: INR: 1.22 ,PTT: 27.2 at the time of order ;Indication: Activebleeding/invasive procedure with prolonged PT/PTT or INR > 1.6 Performed By: #### 1 53, ####[facility] [place] [address], [facility] UNIT RH 1 Positive Normal [facility] Comment on above: Order Comment: INR: 1.22 ,PTT: 27.2 at the time of order ;Indication: Activebleeding/invasive procedure with prolonged PT/PTT or INR > 1.6 Performed By: #### 1 ####[facility] [place] [address], [facility] UNIT RH 2 Negative Normal [facility] Comment on above: Order Comment: INR: 1.22 ,PTT: 27.2 at the time of order ;Indication: Activebleeding/invasive procedure with prolonged PT/PTT or INR > 1.6 Performed By: #### 1 53, ####[facility] [place] [address], [facility] HEMATOCRITon 08-11-2017 Hematocrit (HCT) 37.7 % Normal 36.0-45.0 [facility] Comment on above: Order Comment: No: D o not add to previous draw Performed By: #### 1 53, ####[facility] Hematocrit (HCT) 34.8 % Low 36.0-45.0 [facility] Comment on above: Order Comment: No: D o not add to previous draw Performed By: #### 1 53, ####[facility] [place] [address], [facility] HEMOGLOBINon 08-11-2017 Hemoglobin mass conc (Bld) 12.7 g/dL Normal 12.0-15.0 [facility] Comment on above: Order Comment: No: D o not add to previous drawLAB DRAW NOW - PER CECY MCELROY Performed By: #### 1 53, ####[facility] [place] [address], [facility] Hemoglobin mass conc (Bld) 11.8 g/dL Low 12.0-15.0 [facility] Comment on above: Order Comment: No: D o not add to previous draw Performed By: #### 1 53, ####[facility] [place] [address], [facility] History and Physicalon 08-11 History and Physical MR#: [id number] Pt. Name: Judith Land Admitted: 08/11/2017 Date of : 1945 Attending Physician: Alexander Caballero M.D. Room #: SIC [id number] Discharge Date: HISTORY AND PHYSICALCHIEF COMPLAINT: Trauma [...] any other blood products. [facility] due to the concern for her instability. However,she was stable and round after receiving these blood products and fluid.The patient was unsure of what led up to the fall. Upon presenting to the here, patient was given more fluids and [...] they were fluctuating while in the Trauma Drain,stabilized with fluid.GENERAL: Alert and oriented, no acute [...] wall in the ED, expiratory wheezes noted bilaterally.CARDIOVASCULA R: Regular rate and rhythm, normal heart sounds, [...] Dict: 08/11/2017/12:27 A/Pippa Delgado Trans: 08/11/2017 08:41 A/[id number] Normal [facility] LACTATE BLOODon 08-11-2017 Lactate 1.1 mmol/L Normal .5-2.2 [facility] Comment on above: Order Comment: No: D o not add to previous draw Performed By: #### 1 53, ####[facility] [place] [address], [facility] Lactate 1.3 mmol/L Normal .5-2.2 [facility] Comment on above: Performed By: #### 1 53, ####[facility] [place] [address], [facility] LIPASE BLOODon 08-11-2017 Lipase 13 Units/L Normal 11-82 [facility] Comment on above: Performed By: #### 0 0121, 60157 ####[facility] [place] [address], [facility] LIVER BATTERYon 08-11-2017 Alanine aminotransferase (ALT) 18 U/L Normal 7-52 [facility] Comment on above: Order Comment: No: D o not add to previous draw Performed By: #### 1 53, ####[facility] [place] [address], [facility] Albumin 2.8 g/dL Low 3.5-5.7 [facility] Comment on above: Order Comment: No: D o not add to previous draw Performed By: #### 1 53, ####[facility] [place] [address], [facility] ALKALINE PHOSPH 36 IU/L Normal 34-104 [facility] Comment on above: Order Comment: No: D o not add to previous draw Performed By: #### 1 53, ####[facility] [place] [address], [place] Aspartate aminotransferase (AST) 30 U/L Normal 13-39 [facility] Comment on above: Order Comment: No: D o not add to previous draw Performed By: #### 1 53, ####[facility] [place] [address], [place] Bilirubin (direct) 0.2 mg/dL Normal 0.0-0.2 [facility] Comment on above: Order Comment: No: D o not add to previous draw Performed By: #### 1 53, ####[facility] [facility].[address] Bilirubin (total) 0.9 mg/dL Normal 0.3-1.0 [facility] Comment on above: Order Comment: No: D o not add to previous draw Performed By: #### 1 53, ####[facility] [facility].[address] Protein 4.0 g/dL Low 6.0-8.3 [facility] Comment on above: Order Comment: No: D o not add to previous draw Performed By: #### 1 53, ####[facility] [facility].[address] MAGNESIUM BLOODon 08-11-2017 Magnesium 1.4 mg/dL Low 1.9-2.7 [facility] Comment on above: Order Comment: No: D o not add to previous draw Performed By: #### 1 53, ####[facility] [facility].[address] Operative Reporton 8 Operative Report MR#: [id number] [facility] Land Room #: SIC [id number] Discharge Date: Birthdate: 1945 OPERATIVE REPORTDATE OF SURGERY: 08/11/2017SURGEON: Alexander Caballero M.D.ASSISTANTS: Aldo Villasenor M.D. PhD; ALEXANDER GutierrezREOPERATIVE DIAGNOSES: Traumatic splenic rupture.POSTOPERATIVE DIAGNOSIS: Traumatic splenic rupture.PROCEDURE: Splenectomy for trauma.INDICATION: This is a 72-year-old white female, [facility] [...] for the entire procedure. Date Dict: 08/11/2017/06:29 Susan/Aldo Villasenor MDDate Trans: 08/11/2017 03:54 P/[id number] Normal [facility] PHOSPHORUS BLOODon 8 Phosphate 3.1 mg/dL Normal 2.5-5.0 [facility] Comment on above: Order Comment: No: D o not add to previous draw Performed By: #### 1 5881, 05782 ####[facility] PLATELET APHERESIS 1 UNITon 08-11-2017 PRODUCT CODE 1 E7006 Normal [facility] Comment on above: Order Comment: Plt c ount at the time of order: 126 ;Indication: Platelet-inhibitingdrug therapy with invasive procedure/bleeding Performed By: #### 1 53, ####[facility] [facility].[address] PRODUCT STATUS 1 PT Normal [facility] Comment on above: Order Comment: Plt c ount at the time of order: 126 ;Indication: Platelet-inhibitingdrug therapy with invasive procedure/bleeding Result Comment: Resu lt changed by IF on 08/11/2017 00:20. The previous value was XM.Result changed by IF on 08/12/2017 02:00. The previous value was IS. Performed By: #### 1 53, ####[address] UNIT ABO 1 O Normal [facility] Comment on above: Order Comment: Plt c ount at the time of order: 126 ;Indication: Platelet-inhibitingdrug therapy with invasive procedure/bleeding Performed By: #### 1 53, ####[facility] [facility].[address] UNIT ID 1 [id number] Normal [facility] Comment on above: Order Comment: Plt c ount at the time of order: 126 ;Indication: Platelet-inhibitingdrug therapy with invasive procedure/bleeding Performed By: #### 1 53, ####[facility] [place] [address], [facility] UNIT RH 1 Positive Normal [facility] Comment on above: Order Comment: Plt c ount at the time of order: 126 ;Indication: Platelet-inhibitingdrug therapy with invasive procedure/bleeding Performed By: #### 1 53, ####[facility] [place] [address], [facility] POC GLUCOSE LABon 08-11-2017 Glucose mass conc 100 mg/dL Normal 70-100 [facility] Comment on above: Performed By: #### 1 0054, 45535 ####[facility] [place] [address], [facility] PORTABLE ABDOMENon 8 PORTABLE ABDOMEN [facility] Civkjemcs[address] [place] [address] P atient Name: JUDITH LAND : 1945Sex: FAge: Race: WhiteMRN: [id number]. Location: EMERPatient Status: IVisit #: [id number] Date: 08/11/2017 12:35:00 AMCompleted Date: 08/11/2017 01:07 AMRequesting Provider: ALEXANDER CABALLERO Attending Provider: ALEXANDER CABALLERO Report Copy To: Signs & Symptoms: Intra-op portable abdomenHistory: R/O foreign bodyComments: R/O foreign bodyExam: PORTABLE ABDOMENAccession #: [id number] ======PORTABLE ABDOMEN 08/11/2017 1:07 AM EST SIGNS AND [...] findings. Electronically signed by:Yeimi Nascimento. Transcribed by: [email or web address], User Resident: KD TOTHANElectronically Signed by: YEIMI NASCIMENTO @ 08/11/2017 12:16 PMI personally read this/these film(s) with this resident Normal [facility] Comment on above: Order Comment: R/O f oreign body PORTABLE CHEST 1 VIEWon PORTABLE CHEST 1 VIEW [facility] [address] [place] [address] P atient Name: JUDITH LAND : 1945Sex: FAge: Race: WhiteMRN: [id number]. Location: [id number] Status: IVisit #: [id number] Date: 08/11/2017 1:45:00 AMCompleted Date: 08/11/2017 02:13 AMRequesting Provider: CARMENZA WINTER Attending Provider: ALEXANDER CABALLERO Report Copy To: Signs & Symptoms: Post OPHistory: Patient history not availableComments: Check E.T. Position, also to chest OGT placementExam: PORTABLE CHEST 1 VIEWAccession #: [id number] ======PORTABLE CHEST 1 VIEW 08/11/2017 2:13 AM EST [...] findings. Electronically signed by:Yeimi Nascimento. Transcribed by: [email or web address], User Resident: KD TOTHANElectronically Signed by: YEIMI NASCIMENTO @ 08/11/2017 12:17 PMI personally read this/these film(s) with this resident Normal [facility] Comment on above: Order Comment: Check E.T. Position, also to chest OGT placement PROTHROMBIN TIMEon 8 INR Coag RelTime (PPP) 1.44 {INR} High 0.91-1.16 Th e [facility] Comment on above: Order Comment: No: [...] OF ACTION, CLINICALEFFECTIVENESS, AND OPTIMAL THERAPEUTIC RANGE. [id number];108:231S-246S. Performed By: #### 1 53, ####[facility] Prothrombin time (PT) Coag time (PPP) 17.7 s High 12.3-14.8 [facility] Comment on above: Order Comment: No: D o not add to previous draw Result Comment: ALL RESULTS MUST BE INTERPRETED WITH RESPECT TO BLOOD DRAWING ARTIFACTOR DILUTION ERROR OF ANTICOAGULANT AT THE TIME OF SAMPLING. Performed By: #### 1 53, ####[facility] INR Coag RelTime (PPP) 1.22 {INR} High 0.91-1.16 Th e [facility] Comment on above: Result Comment: ACCC P RECOMMENDED INR FOR WARFARIN THERAPY CONDITION INRPROPHYLAXIS OF VENOUS THROMBOSIS 2-3(HIGH-RISK SURGERY)TREATMENT OF VENOUS THROMBOSIS 2-3TREATMENT OF PULMONARY EMBOLISM 2-3PREVENTION OF SYSTEMIC EMBOLISM: 2-3 ACUTE MYOCARDIAL INFARCTION TISSUE HEART VALVES VALVULAR HEART DISEASE ATRIAL FIBRILLATION RECURRENT SYSTEMIC EMBOLISMMECHANICAL HEART VALVE 2.5-3.5 FROM: ORAL ANTICOAGULANTS. MECHANISM OF ACTION, CLINICALEFFECTIVENESS, AND OPTIMAL THERAPEUTIC RANGE. [id number];108:231S-246S. Performed By: #### 5 6101, 72532 ####[facility] Prothrombin time (PT) Coag time (PPP) 15.5 s High 12.3-14.8 [facility] Comment on above: Result Comment: ALL RESULTS MUST BE INTERPRETED WITH RESPECT TO BLOOD DRAWING ARTIFACTOR DILUTION ERROR OF ANTICOAGULANT AT THE TIME OF SAMPLING. Performed By: #### 5 6101, 73682 ####[facility] [place] [address], [facility] RBC'S 4 UNITSon 08-11-2017 CROSSMATCH INTERP 1 COMP Normal [facility] Comment on above: Performed By: #### 8 6004 ####[facility] [place] [address], [facility] CROSSMATCH INTERP 2 COMP Normal [facility] Comment on above: Performed By: #### 8 6004 ####[facility] [place] [address], [facility] CROSSMATCH INTERP 3 COMP Normal [facility] Comment on above: Performed By: #### 8 6004 ####[facility] [place] [address], [facility] CROSSMATCH INTERP 4 COMP Normal [facility] Comment on above: Performed By: #### 8 6004 ####[facility] [place] [address], [facility] PRODUCT CODE 1 E0686 Normal [facility] Comment on above: Performed By: #### 8 6004 ####[facility] [place] [address], [place] PRODUCT CODE 2 E0336 Normal [facility] Comment on above: Performed By: #### 8 6004 ####[facility] [place] [address], [place] PRODUCT CODE 3 E0336 Normal [facility] Comment on above: Performed By: #### 8 6004 ####[facility] [place] [address], [place] PRODUCT CODE 4 E0336 Normal [facility] Comment on above: Performed By: #### 8 6004 ####[facility] [place] [address], [place] PRODUCT STATUS 1 RE Normal [facility] Comment on above: Result Comment: Resu lt changed by IF on 08/11/2017 00:26. The previous value was XM.Result changed by IF on 08/11/2017 01:42. The previous value was IS.Result changed by IF on 08/14/2017 07:03. The previous value was XM. Performed By: #### 8 6004 ####[facility] [place] [address], [place] PRODUCT STATUS 2 PT Normal [facility] Comment on above: Result Comment: Resu lt changed by IF on 08/11/2017 00:26. The previous value was XM.Result changed by IF on 08/12/2017 02:00. The previous value was IS. Performed By: #### 8 6004 ####[facility] [place] [address], [place] PRODUCT STATUS 3 RE Normal [facility] Comment on above: Result Comment: Resu lt changed by IF on 08/12/2017 15:16. The previous value was XX. Performed By: #### 8 6004 ####[facility] [place] [address], [facility] PRODUCT STATUS 4 RE Normal [facility] Comment on above: Result Comment: Resu lt changed by IF on 08/11/2017 00:26. The previous value was XM.Result changed by IF on 08/11/2017 01:42. The previous value was IS.Result changed by IF on 08/14/2017 07:03. The previous value was XM. Performed By: #### 8 6004 ####[facility] [place] [address], [facility] UNIT ABO 1 O Normal [facility] Comment on above: Performed By: #### 8 6004 ####[facility] [place] [address], [facility] UNIT ABO 2 O Normal [facility] Comment on above: Performed By: #### 8 6004 ####[facility] [place] [address], [facility] UNIT ABO 3 O Normal [facility] Comment on above: Performed By: #### 8 6004 ####[facility] [place] [address], [facility] UNIT ABO 4 O Normal [facility] Comment on above: Performed By: #### 8 6004 ####[facility] [place] [address], [facility] UNIT ID 1 [id number] Normal [facility] Comment on above: Performed By: #### 8 6004 ####[facility] [place] [address], [facility] UNIT ID 2 [id number] Normal [facility] Comment on above: Performed By: #### 8 6004 ####[facility] [id number], [facility] UNIT ID 3 [id number] Normal [facility] Comment on above: Performed By: #### [id number] ####[facility] [place] [address], [facility] [id number] Normal [facility] Comment on above: Performed By: #### [id number] ####[facility] [place] [address], [facility] RH 1 Negative Normal [facility] Comment on above: Performed By: #### [id number] ####[facility] [place] [address], [facility] 2 Negative Normal [facility] Comment on above: Performed By: #### [id number] ####[facility] [place] [address], [facility] 3 Negative Normal [facility] Comment on above: Performed By: #### [id number] ####[facility] [facility] [place] [address], [facility] RH 4 Negative Normal [facility] Comment on above: Performed By: #### [id number] ####[facility] [place] [address], [facility] SERUM TESTon 08-11 TEST Negative Normal [facility] Comment on above: Performed By: #### [id number] ####[facility] [place] [address], [facility] TYPE AND CROSSMATCHon 2017 ABO INTERPRETATION O Normal [facility] Comment on above: Performed By: #### [id number] ####[facility] [place] [address], [facility] ANTIBODY SCREEN Negative Normal [facility] Comment on above: Performed By: #### [id number] ####[facility] [place] [address], [facility] RH INTERPRETATION Negative Normal [facility] Comment on above: Performed By: #### [id number] ####[facility] [place] [address], [facility] Vital Signs Date Time Vital Sign Value Performing Clinician Facility 01-29-2025 09:53-0400 Body weight 43.14 kg Trish Christensen MD Work Phone: [facility] 01-29-2025 09:53-0400 Diastolic blood pressure 68 mm[Hg] Trish Christensen MD Work Phone: [facility] 01-29-2025 09:53-0400 Heart rate 87 /min Trish Christensen MD Work Phone: [facility] 01-29-2025 09:53-0400 SaO2% (BldA) [Mass fraction] 92 % Trish Christensen MD Work Phone: [facility] 01-29-2025 09:53-0400 Systolic blood pressure 124 mm[Hg] Trish Christensen MD Work Phone: [facility] 12-29-2024 08:37-0400 Body mass index (BMI) [Ratio] 16.51 kg/m2 Cherie Cedeno PA-C Work Phone: [facility] 12-29-2024 08:37-0400 Body weight 46.4 kg Cherie Wilian PA-C Work Phone: [facility] 12-29-2024 08:37-0400 Diastolic blood pressure 82 mm[Hg] Cherie Cedeno PA-C Work Phone: [facility] 12-29-2024 08:37-0400 Heart rate 83 /min Cherie Cedeno PA-C Work Phone: [facility] 12-29-2024 08:37-0400 SaO2% (BldA) [Mass fraction] 96 % Cherie Cedeno PA-C Work Phone: [facility] 12-29-2024 08:37-0400 Systolic blood pressure 146 mm[Hg] Cherie Cedeno PA-C Work Phone: [facility] 12-25-2024 10:04-0400 Body height 165.1 cm Judith Joycemer PA Work Phone: [facility] 12-25-2024 10:04-0400 Body mass index (BMI) [Ratio] 16.14 kg/m2 Judith Hemmer PA Work Phone: [facility] 12-25-2024 10:04-0400 Body weight 44 kg Judith Hemmer PA Work Phone: [facility] 12-25-2024 10:04-0400 Diastolic blood pressure 78 mm[Hg] Judith Hemmer PA Work Phone: [facility] 12-25-2024 10:04-0400 Heart rate 84 /min Judith Hemmer PA Work Phone: [facility] 12-25-2024 10:04-0400 SaO2% (BldA) [Mass fraction] 95 % Judith Hemmer PA Work Phone: [facility] 12-25-2024 10:04-0400 Systolic blood pressure 136 mm[Hg] Judith Hemmer PA Work Phone: [facility] 12-18-2024 14:50-0400 Body temperature 97.4 [degF] Kavon Sams MD Work Phone: [facility] 12-18-2024 14:50-0400 Diastolic blood pressure 73 mm[Hg] Kavon Sams MD Work Phone: [facility] 12-18-2024 14:50-0400 Heart rate 70 /min Kavon Sams MD Work Phone: [facility] 12-18-2024 14:50-0400 Respiratory rate 16 /min Kavon Sams MD Work Phone: [facility] 12-18-2024 14:50-0400 SaO2% (BldA) [Mass fraction] 97 % Kavon Sams MD Work Phone: [facility] 12-18-2024 14:50-0400 Systolic blood pressure 168 mm[Hg] Kavon Sams MD Work Phone: [facility] 12-18-2024 03:55-0400 Body weight 44.9 kg Kavon Sams MD Work Phone: [facility] 12-17-2024 10:45-0400 Body height 167.64 cm Kavon Sams MD Work Phone: [facility] 12-15-2024 14:42-0400 Diastolic blood pressure 74 mm[Hg] Trish Christensen MD Work Phone: [facility] 12-15-2024 14:42-0400 Heart rate 62 /min Trish Christensen MD Work Phone: [facility] 12-15-2024 14:42-0400 Respiratory rate 18 /min Trish Christensen MD Work Phone: [facility] 12-15-2024 14:42-0400 SaO2% (BldA) [Mass fraction] 95 % Trish Christensen MD Work Phone: [facility] 12-15-2024 14:42-0400 Systolic blood pressure 164 mm[Hg] Trish Christensen MD Work Phone: [facility] 12-15-2024 10:49-0400 Body height 167.64 cm Trish Christensen MD Work Phone: [facility] 12-15-2024 10:49-0400 Body temperature 98.4 [degF] Trish Christensen MD Work Phone: [facility] 12-15-2024 10:49-0400 Body weight 44.45 kg Trish Christensen MD Work Phone: [facility] 12-14-2024 12:24-0400 Diastolic blood pressure 79 mm[Hg] Trish Christensen MD Work Phone: [facility] 12-14-2024 12:24-0400 Heart rate 82 /min Trish Christensen MD Work Phone: [facility] 12-14-2024 12:24-0400 Respiratory rate 18 /min Trish Christensen MD Work Phone: [facility] 12-14-2024 12:24-0400 SaO2% (BldA) [Mass fraction] 92 % Trish Christensen MD Work Phone: [facility] 12-14-2024 12:24-0400 Systolic blood pressure 177 mm[Hg] Trish Christensen MD Work Phone: [facility] 12-14-2024 08:30-0400 Body temperature 98.3 [degF] Trish Christensen MD Work Phone: [facility] 12-14-2024 08:24-0400 Body height 165.1 cm Trish Christensen MD Work Phone: [facility] 12-14-2024 08:24-0400 Body weight 44 kg Trish Christensen MD Work Phone: [facility] 11-02-2024 08:25-0400 Body temperature 97.9 [degF] Trish Christensen MD Work Phone: [facility] 11-02-2024 08:25-0400 Diastolic blood pressure 80 mm[Hg] Trish Christensen MD Work Phone: [facility] 11-02-2024 08:25-0400 Heart rate 66 /min Trish Christensen MD Work Phone: [facility] 11-02-2024 08:25-0400 Inhaled oxygen flow rate 3 L/min Trish Christensen MD Work Phone: [facility] 11-02-2024 08:25-0400 Respiratory rate 16 /min Trish Christensen MD Work Phone: [facility] 11-02-2024 08:25-0400 SaO2% (BldA) [Mass fraction] 95 % Trish Christensen MD Work Phone: [facility] 11-02-2024 08:25-0400 Systolic blood pressure 178 mm[Hg] Trish Christensen MD Work Phone: [facility] 11-02-2024 06:25-0400 Body weight 49.7 kg Trish Christensen MD Work Phone: [facility] 10-30-2024 16:00-0400 Inhaled oxygen concentration 100 % Trish Christensen MD Work Phone: [facility] 10-30-2024 15:19-0400 Body height 160.02 cm Trish Christensen MD Work Phone: [facility] 10-01-2024 09:49-0400 Body height 165.1 cm Supa Pocos DO Work Phone: [facility] 10-01-2024 09:49-0400 Body mass index (BMI) [Ratio] 17.97 kg/m2 Supa Pocos DO Work Phone: [facility] 10-01-2024 09:49-0400 Body weight 48.99 kg Supa Pocos DO Work Phone: [facility] 09-17-2024 15:43-0400 Body height 165.1 cm Shaun Jackson SMOKE ROOM OPERATOR Work Phone: [facility] 09-17-2024 15:43-0400 Diastolic blood pressure 90 mm[Hg] Shaun Jackson SMOKE ROOM OPERATOR Work Phone: [facility] 09-17-2024 15:43-0400 Systolic blood pressure 158 mm[Hg] Shaun Jackson SMOKE ROOM OPERATOR Work Phone: [facility] 09-10-2024 14:30-0400 Body height 165.1 cm Supa Pocos DO Work Phone: [facility] 09-10-2024 14:30-0400 Body mass index (BMI) [Ratio] 17.97 kg/m2 Supa Pocos DO Work Phone: [facility] 09-10-2024 14:30-0400 Body weight 48.99 kg Supa Pocos DO Work Phone: [facility] 09-05-2024 06:55-0400 Body temperature 98.4 [degF] Damaso Tupa DO Work Phone: [facility] 09-05-2024 06:55-0400 Heart rate 104 /min Damaso Tupa DO Work Phone: [facility] 09-05-2024 06:55-0400 Respiratory rate 16 /min Damaso Tupa DO Work Phone: [facility] 09-05-2024 06:55-0400 SaO2% (BldA) [Mass fraction] 95 % Damaso Tupa DO Work Phone: [facility] 09-04-2024 14:58-0400 Diastolic blood pressure 66 mm[Hg] Damaso Tupa DO Work Phone: [facility] 09-04-2024 14:58-0400 Systolic blood pressure 116 mm[Hg] Damaso Tupa DO Work Phone: [facility] 09-03-2024 12:27-0400 Body height 167.64 cm Damaso Tupa DO Work Phone: [facility] 08-31-2024 05:54-0400 Body weight 47.8 kg Damaso Tupa DO Work Phone: [facility] 08-25-2024 14:14-0400 Diastolic blood pressure 84 mm[Hg] Damaso Tupa DO Work Phone: [facility] 08-25-2024 14:14-0400 Systolic blood pressure 157 mm[Hg] Damaso Tupa DO Work Phone: [facility] 08-25-2024 07:20-0400 Body temperature 97.7 [degF] Damaso Tupa DO Work Phone: [facility] 08-25-2024 07:20-0400 Heart rate 99 /min Damaso Tupa DO Work Phone: [facility] 08-25-2024 07:20-0400 Respiratory rate 16 /min Damaso Tupa DO Work Phone: [facility] 08-25-2024 07:20-0400 SaO2% (BldA) [Mass fraction] 93 % Damaso Tupa DO Work Phone: [facility] 08-25-2024 04:34-0400 Body weight 49.3 kg Damaso Tupa DO Work Phone: [facility] 08-22-2024 14:20-0400 Body height 167.64 cm Damaso Tupa DO Work Phone: [facility] 08-20-2024 21:23-0400 Diastolic blood pressure 78 mm[Hg] Damaso Tupa DO Work Phone: [facility] 08-20-2024 21:23-0400 Heart rate 70 /min Damaso Tupa DO Work Phone: [facility] 08-20-2024 21:23-0400 Respiratory rate 18 /min Damaso Tupa DO Work Phone: [facility] 08-20-2024 21:23-0400 SaO2% (BldA) [Mass fraction] 94 % Damaso Tupa DO Work Phone: [facility] 08-20-2024 21:23-0400 Systolic blood pressure 163 mm[Hg] Damaso Tupa DO Work Phone: [facility] 08-20-2024 19:33-0400 Body height 167.64 cm Damaso Tupa DO Work Phone: [facility] 08-20-2024 19:33-0400 Body temperature 97.5 [degF] Damaso Charlton DO Work Phone: [facility] 08-20-2024 19:33-0400 Body weight 48.98 kg Damaso Charlton DO Work Phone: [facility] 08-12-2024 12:12-0500 Heart rate 96 /min Supa Pocos [facility] 08-12-2024 12:12-0500 SaO2% (BldA) [Mass fraction] 94 % Supa Pocos [facility] 08-12-2024 12:09-0500 Respiratory rate 20 /min Supa Pocos [facility] 08-12-2024 12:09-0500 Blood Pressure Location Supa Pocos [facility] 08-12-2024 12:09-0500 Diastolic blood pressure 57 mm[Hg] Supa Pocos [facility] 08-12-2024 12:09-0500 Mean blood pressure 78 mm[Hg] Supa Pocos [facility] 08-12-2024 12:09-0500 Systolic blood pressure 120 mm[Hg] Supa Pocos [facility] 08-12-2024 11:17-0500 Heart rate 86 /min Supa Pocos [facility] 08-12-2024 11:17-0500 SaO2% (BldA) [Mass fraction] 97 % Supa Pocos [facility] 08-12-2024 11:15-0500 Diastolic blood pressure 54 mm[Hg] Supa Pocos [facility] 08-12-2024 11:15-0500 Mean blood pressure 74 mm[Hg] Supa Pocos [facility] 08-12-2024 11:15-0500 Systolic blood pressure 113 mm[Hg] Supa Pocos [facility] 08-12-2024 10:48-0500 Heart rate 77 /min Supa Pocos [facility] 08-12-2024 10:48-0500 SaO2% (BldA) [Mass fraction] 92 % Supa Pocos [facility] 08-12-2024 10:48-0500 Blood Pressure Location Supa Pocos [facility] 08-12-2024 10:48-0500 Diastolic blood pressure 52 mm[Hg] Supa Pocos [facility] 08-12-2024 10:48-0500 Mean blood pressure 66 mm[Hg] Supa Pocos [facility] 08-12-2024 10:48-0500 Systolic blood pressure 94 mm[Hg] Supa Pocos [facility] 08-12-2024 10:41-0500 Respiratory rate 18 /min Supa Pocos [facility] 08-12-2024 10:38-0500 Mean blood pressure 65 mm[Hg] Supa Pocos [facility] 08-12-2024 10:38-0500 Respiratory rate 19 /min Supa Pocos [facility] 08-12-2024 10:30-0500 Mean blood pressure 73 mm[Hg] Supa Pocos [facility] 08-12-2024 10:30-0500 Respiratory rate 12 /min Supa Pocos [facility] 08-12-2024 10:20-0500 Mean blood pressure 77 mm[Hg] Supa Pocos [facility] 08-12-2024 10:20-0500 Respiratory rate 12 /min Supa Pocos [facility] 08-12-2024 10:08-0500 Body temperature 97.52 [degF] Supa Pocos [facility] 08-12-2024 10:00-0500 Respiratory rate 11 /min Supa Pocos [facility] 08-12-2024 07:50-0500 Blood Pressure Location Supa Pocos [facility] 08-12-2024 07:50-0500 Heart rate 82 /min Supa Pocos [facility] 08-12-2024 07:48-0500 Body temperature 97.88 [degF] Supa Pocos [facility] 08-06-2024 10:07-0500 Body height 165.1 cm Supa Pocos DO Work Phone: [facility] 08-06-2024 10:07-0500 Body mass index (BMI) [Ratio] 17.97 kg/m2 Supa Pocos DO Work Phone: [facility] 08-06-2024 10:07-0500 Body weight 48.99 kg Supa Pocos DO Work Phone: [facility] 08-03-2024 20:00-0500 Diastolic blood pressure 79 mm[Hg] Christopher Sales [facility] 08-03-2024 20:00-0500 Heart rate 86 /min Christopher Sales [facility] 08-03-2024 20:00-0500 Mean blood pressure 101 mm[Hg] Christopher Sales [facility] 08-03-2024 20:00-0500 SaO2% (BldA) [Mass fraction] 97 % Christopher Sales [facility] 08-03-2024 20:00-0500 Systolic blood pressure 146 mm[Hg] Christopher Sales [facility] 08-03-2024 18:59-0500 Body temperature 97.34 [degF] Christopher Sales [facility] 08-03-2024 18:59-0500 Diastolic blood pressure 82 mm[Hg] Christopher Sales [facility] 08-03-2024 18:59-0500 Heart rate 92 /min Christopher Sales [facility] 08-03-2024 18:59-0500 Respiratory rate 16 /min Christopher Sales [facility] 08-03-2024 18:59-0500 SaO2% (BldA) [Mass fraction] 94 % Christopher Sales [facility] 08-03-2024 18:59-0500 Systolic blood pressure 171 mm[Hg] Christopher Sales [facility] 07-30-2024 07:57-0500 Body height 165.1 cm Supa Pocos DO Work Phone: [facility] 07-30-2024 07:57-0500 Body mass index (BMI) [Ratio] 17.97 kg/m2 Supa Pocos DO Work Phone: [facility] 07-30-2024 07:57-0500 Body weight 48.99 kg Supa Pocos DO Work Phone: [facility] 07-26-2024 18:33-0500 Diastolic blood pressure 91 mm[Hg] Sae Morfin [facility] 07-26-2024 18:33-0500 Heart rate 76 /min Sae Morfin [facility] 07-26-2024 18:33-0500 Mean blood pressure 104 mm[Hg] Sae Morfin [facility] 07-26-2024 18:33-0500 Respiratory rate 14 /min Sae Navjot [facility] 07-26-2024 18:33-0500 SaO2% (BldA) [Mass fraction] 94 % Sae Navjot [facility] 07-26-2024 18:33-0500 Systolic blood pressure 130 mm[Hg] Sae Navjot [facility] 07-26-2024 18:14-0500 Hourly Rounding Sae Navjot [facility] 07-26-2024 18:00-0500 Mean blood pressure 107 mm[Hg] Sae Navjot [facility] 07-26-2024 18:00-0500 Respiratory rate 13 /min Sae Navjot [facility] 07-26-2024 18:00-0500 SaO2% (BldA) [Mass fraction] 95 % Sae Navjot [facility] 07-26-2024 18:00-0500 Systolic blood pressure 139 mm[Hg] Sae Navjot [facility] 07-26-2024 17:10-0500 Diastolic blood pressure 93 mm[Hg] Sae Navjot [facility] 07-26-2024 17:10-0500 Heart rate 75 /min Sae Navjot [facility] 07-26-2024 17:10-0500 Hourly Rounding Sae Navjot [facility] 07-26-2024 17:10-0500 Mean blood pressure 115 mm[Hg] Sae Navjot [facility] 07-26-2024 17:10-0500 Respiratory rate 18 /min Sae Navjot [facility] 07-26-2024 17:10-0500 SaO2% (BldA) [Mass fraction] 93 % Sae Morfin [facility] 07-26-2024 17:10-0500 Systolic blood pressure 160 mm[Hg] Sae Morfin [facility] 07-26-2024 16:02-0500 Body temperature 97.7 [degF] Sae Morfin [facility] 07-26-2024 16:02-0500 Heart rate 89 /min Sae Morfin [facility] 07-26-2024 16:02-0500 Respiratory rate 18 /min Sae Morfin [facility] 07-24-2024 21:00-0500 Diastolic blood pressure 88 mm[Hg] [facility] 07-24-2024 21:00-0500 Heart rate 81 /min [facility] 07-24-2024 21:00-0500 Mean blood pressure 113 mm[Hg] [facility] 07-24-2024 21:00-0500 Respiratory rate 19 /min [facility] 07-24-2024 21:00-0500 SaO2% (BldA) [Mass fraction] 96 % [facility] 07-24-2024 21:00-0500 Systolic blood pressure 164 mm[Hg] [facility] 07-24-2024 20:30-0500 Diastolic blood pressure 77 mm[Hg] [facility] 07-24-2024 20:30-0500 Heart rate 85 /min [facility] 07-24-2024 20:30-0500 Mean blood pressure 105 mm[Hg] [facility] 07-24-2024 20:30-0500 Respiratory rate 15 /min [facility] 07-24-2024 20:30-0500 SaO2% (BldA) [Mass fraction] 93 % [facility] 07-24-2024 20:30-0500 Systolic blood pressure 160 mm[Hg] [facility] 07-24-2024 19:30-0500 Diastolic blood pressure 92 mm[Hg] [facility] 07-24-2024 19:30-0500 Heart rate 78 /min [facility] 07-24-2024 19:30-0500 Mean blood pressure 117 mm[Hg] [facility] 07-24-2024 19:30-0500 Respiratory rate 18 /min [facility] 07-24-2024 19:30-0500 SaO2% (BldA) [Mass fraction] 95 % [facility] 07-24-2024 19:30-0500 Systolic blood pressure 167 mm[Hg] [facility] 07-24-2024 19:02-0500 Body temperature 97.52 [degF] [facility] 07-24-2024 19:02-0500 Heart rate 76 /min [facility] 07-24-2024 19:02-0500 Respiratory rate 18 /min [facility] 07-24-2024 18:46-0500 Body temperature 97.52 [degF] [facility] 07-24-2024 18:46-0500 Heart rate 78 /min [facility] 07-24-2024 18:46-0500 Respiratory rate 18 /min [facility] 07-16-2024 14:51-0500 Diastolic blood pressure 71 mm[Hg] Cherie Cedeno PA-C Work Phone: [facility] 07-16-2024 14:51-0500 Heart rate 97 /min Cherie Cedeno PA-C Work Phone: [facility] 07-16-2024 14:51-0500 SaO2% (BldA) [Mass fraction] 97 % Cherie Cedeno PA-C Work Phone: [facility] 07-16-2024 14:51-0500 Systolic blood pressure 149 mm[Hg] Cherie Cedeno PA-C Work Phone: [facility] 05-21-2024 12:59-0500 Body mass index (BMI) [Ratio] 17.97 kg/m2 Cathie Gill SMOKE ROOM OPERATOR Work Phone: [facility] 05-21-2024 12:59-0500 Body weight 48.99 kg Cathie Gill SMOKE ROOM OPERATOR Work Phone: [facility] 05-21-2024 12:59-0500 Diastolic blood pressure 76 mm[Hg] Cathie Gill SMOKE ROOM OPERATOR Work Phone: [facility] 05-21-2024 12:59-0500 Heart rate 68 /min Cathie Gill SMOKE ROOM OPERATOR Work Phone: [facility] 05-21-2024 12:59-0500 Systolic blood pressure 125 mm[Hg] Cathie Bridget SMOKE ROOM OPERATOR Work Phone: [facility] 04-21-2024 08:39-0500 Body mass index (BMI) [Ratio] 18.64 kg/m2 Cathie Gill SMOKE ROOM OPERATOR Work Phone: [facility] 04-21-2024 08:39-0500 Body weight 50.8 kg Cathie Gill SMOKE ROOM OPERATOR Work Phone: [facility] 04-21-2024 08:39-0500 Diastolic blood pressure 75 mm[Hg] Cathie Bridget SMOKE ROOM OPERATOR Work Phone: [facility] 04-21-2024 08:39-0500 Heart rate 76 /min Cathie Bridget SMOKE ROOM OPERATOR Work Phone: [facility] 04-21-2024 08:39-0500 Systolic blood pressure 128 mm[Hg] Cathie Bridget SMOKE ROOM OPERATOR Work Phone: [facility] 02-22-2024 14:35-0400 SaO2% (BldA) [Mass fraction] 95 % Cherie Wilian PA-C Work Phone: [facility] 02-22-2024 14:33-0400 Diastolic blood pressure 73 mm[Hg] Cherie Wilian PA-C Work Phone: [facility] 02-22-2024 14:33-0400 Heart rate 92 /min Cherie Wilian PA-C Work Phone: [facility] 02-22-2024 14:33-0400 Systolic blood pressure 133 mm[Hg] Cherie Wilian PA-C Work Phone: [facility] 01-14-2024 13:40-0400 Body height 167.6 cm Cherie Wilian PA-C Work Phone: [facility] 01-14-2024 13:40-0400 Body mass index (BMI) [Ratio] 19.21 kg/m2 Cherie Wilian PA-C Work Phone: [facility] 01-14-2024 13:40-0400 Body weight 53.98 kg Cherie Wilian PA-C Work Phone: [facility] 01-14-2024 13:40-0400 Diastolic blood pressure 63 mm[Hg] Cherie Wilian PA-C Work Phone: [facility] 01-14-2024 13:40-0400 Heart rate 92 /min Cherie Wilian PA-C Work Phone: [facility] 01-14-2024 13:40-0400 SaO2% (BldA) [Mass fraction] 92 % Cherie Wilian PA-C Work Phone: [facility] 01-14-2024 13:40-0400 Systolic blood pressure 144 mm[Hg] Cherie Wilian PA-C Work Phone: [facility] 10-07-2023 09:46-0400 Diastolic blood pressure 70 mm[Hg] Mri (I-Stat/1.5t/3t) Work Phone: [facility] 10-07-2023 09:46-0400 Heart rate 103 /min Mri (I-Stat/1.5t/3t) Work Phone: [facility] 10-07-2023 09:46-0400 Respiratory rate 16 /min Mri (I-Stat/1.5t/3t) Work Phone: [facility] 10-07-2023 09:46-0400 SaO2% (BldA) [Mass fraction] 93 % Mri (I-Stat/1.5t/3t) Work Phone: [facility] Comment on above: RA 10-07-2023 09:46-0400 Systolic blood pressure 144 mm[Hg] Mri (I-Stat/1.5t/3t) Work Phone: [facility] 09-13-2023 09:23-0400 Body height 167.6 cm David Valente MD Work Phone: [facility] 09-13-2023 09:23-0400 Body weight 55.79 kg David Valente MD Work Phone: [facility] 09-13-2023 09:23-0400 Diastolic blood pressure 71 mm[Hg] David Valente MD Work Phone: [facility] 09-13-2023 09:23-0400 Heart rate 85 /min David Valente MD Work Phone: [facility] 09-13-2023 09:23-0400 SaO2% (BldA) [Mass fraction] 95 % David Valente MD Work Phone: [facility] 09-13-2023 09:23-0400 Systolic blood pressure 132 mm[Hg] David Valente MD Work Phone: [facility] 07-16-2023 15:42-0500 Heart rate 117 /min Demarco Beaver [facility] 07-16-2023 15:42-0500 Respiratory rate 19 /min Demarco [facility] 07-16-2023 15:42-0500 SaO2% (BldA) [Mass fraction] 94 % [facility]arco [facility] 07-16-2023 15:00-0500 Diastolic blood pressure 99 mm[Hg] [facility] 07-16-2023 15:00-0500 Mean blood pressure 121 mm[Hg] [facility] 07-16-2023 15:00-0500 Respiratory rate 33 /min [facility] 07-16-2023 15:00-0500 Systolic blood pressure 166 mm[Hg] [facility] 07-16-2023 14:30-0500 Diastolic blood pressure 77 mm[Hg] [facility] 07-16-2023 14:30-0500 Heart rate 103 /min [facility] 07-16-2023 14:30-0500 Mean blood pressure 100 mm[Hg] [facility] 07-16-2023 14:30-0500 Respiratory rate 14 /min [facility] 07-16-2023 14:30-0500 SaO2% (BldA) [Mass fraction] 93 % [facility] 07-16-2023 14:30-0500 Systolic blood pressure 147 mm[Hg] [facility] 07-16-2023 13:30-0500 Body temperature 97.88 [degF] [facility] 07-16-2023 13:30-0500 Diastolic blood pressure 84 mm[Hg] Demarco [facility] 07-16-2023 13:30-0500 Mean blood pressure 105 mm[Hg] [facility] 07-16-2023 13:30-0500 Systolic blood pressure 146 mm[Hg] [facility] 07-16-2023 11:37-0500 Body temperature 97.16 [degF] [facility] 07-16-2023 11:37-0500 Heart rate 119 /min [facility] 07-16-2023 11:37-0500 Respiratory rate 18 /min [facility] 06-23-2023 14:00-0500 Hourly Rounding [facility] 06-23-2023 14:00-0500 Promise to Return [facility] 06-23-2023 13:00-0500 Hourly Rounding [facility] 06-23-2023 13:00-0500 Promise to Return [facility] 06-23-2023 12:00-0500 Hourly Rounding [facility] 06-23-2023 12:00-0500 Promise to Return [facility] 06-23-2023 11:22-0500 Heart rate 107 /min [facility] 06-23-2023 11:22-0500 SaO2% (BldA) [Mass fraction] 94 % [facility] 06-23-2023 11:21-0500 Diastolic blood pressure 82 mm[Hg] [facility] 06-23-2023 11:21-0500 Mean blood pressure 108 mm[Hg] [facility] 06-23-2023 11:21-0500 Systolic blood pressure 162 mm[Hg] [facility] 06-23-2023 11:20-0500 Body temperature 97.7 [degF] [facility] 06-23-2023 08:20-0500 SaO2% (BldA) [Mass fraction] 98 % [facility] 06-23-2023 07:19-0500 Heart rate 84 /min [facility] 06-23-2023 07:19-0500 SaO2% (BldA) [Mass fraction] 100 % [facility] 06-23-2023 07:18-0500 Body temperature 97.52 [degF] [facility] 06-23-2023 07:18-0500 Diastolic blood pressure 81 mm[Hg] [facility] 06-23-2023 07:18-0500 Mean blood pressure 99 mm[Hg] [facility] 06-23-2023 07:18-0500 Systolic blood pressure 137 mm[Hg] [facility] 06-23-2023 06:17-0500 Blood Pressure Location [facility] 06-23-2023 06:17-0500 Body temperature 97.52 [degF] [facility] 06-23-2023 06:17-0500 Diastolic blood pressure 74 mm[Hg] [facility] 06-23-2023 06:17-0500 Heart rate 99 /min [facility] 06-23-2023 06:17-0500 Respiratory rate 17 /min [facility] 06-23-2023 06:17-0500 Systolic blood pressure 159 mm[Hg] [facility] 06-23-2023 05:01-0500 Heart rate 102 /min [facility] 06-23-2023 05:01-0500 Mean blood pressure 98 mm[Hg] [facility] 06-23-2023 05:01-0500 Respiratory rate 19 /min [facility] 06-23-2023 04:30-0500 Mean blood pressure 95 mm[Hg] [facility] 06-23-2023 04:30-0500 Respiratory rate 16 /min [facility] 06-23-2023 03:00-0500 Mean blood pressure 121 mm[Hg] [facility] 06-23-2023 03:00-0500 Respiratory rate 20 /min [facility] 06-23-2023 02:43-0500 Respiratory rate 18 /min [facility] 06-23-2023 02:30-0500 Respiratory rate 18 /min [facility] 06-23-2023 01:40-0500 gluc 96 mg/dL [facility] 06-23-2023 01:40-0500 gluc [facility] 06-23-2023 01:38-0500 gluc 96 mg/dL [facility] 06-23-2023 01:38-0500 gluc [facility] 06-23-2023 01:37-0500 Heart rate 117 /min [facility] 05-15-2023 13:50-0500 Body height 167.64 cm MD Kavon Sams Work Phone: [facility] 05-15-2023 13:50-0500 Body weight 57.15 kg MD Kavon Sams Work Phone: [facility] Encounters Encounter Date Encounter Type Care Provider Facility Start: 01-29-2025 End: 01-29-2025 ambulatory Trish Christensen MD Work Phone: [facility] Work Phone: Start: 01-29-2025 End: 01-29-2025 Patient encounter procedure Baljeet Monae DO -[facility] [place] Work Phone: Start: 01-06-2025 End: 01-06-2025 ambulatory TONY KRISTI [facility] Start: 12-29-2024 End: 12-29-2024 Office outpatient visit 25 minutes Cherie Cedeno PA-C Work Phone: [facility] Comment on above: Parkinson's disease with dyskinesia and fluctuating manifestations (HCC) (Primary Dx); Slow transit constipation; Gait instability; Fear of falling Start: 12-29-2024 End: 12-29-2024 ambulatory CHERIE CEDENO Facility:[facility] Start: 12-25-2024 End: 12-25-2024 Office outpatient visit 25 minutes Judith HUDSON Work Phone: [facility] Comment on above: Abnormal weight loss (Primary Dx); Stage 3b chronic kidney disease (CMS-HCC); Parkinson's disease, unspecified whether dyskinesia present, unspecified whether manifestations fluctuate (HCC); Primary hypertension ; Hemiplegia, unspecified affecting right dominant side (HCC); Bilateral lower extremity edema Start: 12-25-2024 End: 12-25-2024 ambulatory JUDITH MURPHY Not Available Start: 12-24-2024 End: 12-25-2024 Telephone encounter Kavon Sams MD Work Phone: [facility] Start: 12-15-2024 End: 12-18-2024 Evaluation and management of inpatient Faith Mccoy MD -[address] [place] [address] Surgical Work Phone: Start: 12-15-2024 Non-patient / Non-visit Brian Mcdonald MD -[facility] Work Phone: Start: 12-14-2024 End: 12-14-2024 Emergency department patient visit Trish Christensen MD Work Phone: -Emergency Room Work Phone: Start: 11-27-2024 End: 12-01-2024 Telephone encounter Noms Provider Unallocated Work Phone: [facility] Start: 11-26-2024 End: 11-26-2024 ambulatory DANIELA JARAMILLO Not Available Start: 11-26-2024 End: 11-26-2024 Bamboo flowsheet Daniela Jaramillo SMOKE ROOM OPERATOR Work Phone: [facility] Start: 11-26-2024 End: 11-26-2024 Bamboo flowsheet Daniela Jaramillo SMOKE ROOM OPERATOR Work Phone: [facility] Start: 10-29-2024 Non-patient / Non-visit José Antonio Monae -[facility] Work Phone: Start: 10-29-[address] [facility] Start: 10-28-2024 End: 11-02-2024 Evaluation and management of inpatient Trish Christensen MD -[facility] [place] Work Phone: Start: 10-27-2024 End: 10-28-2024 Emergency department patient visit [facility] Start: 10-23-2024 End: 10-23-2024 ambulatory Kavon Sams Facility:[facility] Start: 10-23-2024 End: 10-23-2024 Departed Referred Kavon Monae MD -[facility] Start: 10-07-2024 End: 10-07-2024 Refill Cherie Cedeno PA-C Work Phone: [facility] Comment on above: Refill Request Start: 10-01-2024 End: 10-01-2024 Patient encounter procedure Supa Owen DO Work Phone: [facility] Comment on above: Closed fracture of s uperior ramus of left pubis, initial encounter ([facility]) (Primary Dx); Other closed intra-articular fracture of distal end of right radius with routine healing, subsequent encounter Start: 10-01-2024 End: 10-01-2024 ambulatory SUPA OWEN Not Available Start: 09-24-2024 End: 09-25-2024 Telephone encounter Kimmy Jaramillo RN [facility] Comment on above: Med Refill Start: 09-17-2024 End: 09-17-2024 Office outpatient visit 15 minutes Shaun Philip SMOKE ROOM OPERATOR Work Phone: [facility] Comment on above: Parkinson's disease, unspecified whether dyskinesia present, unspecified whether manifestations fluctuate ([facility]) (Primary Dx); RLS (restless legs syndrome); Cerebral infarction, chronic; Carpal tunnel syndrome of right wrist; Other chronic pain Start: 09-17-2024 End: 09-17-2024 ambulatory SHAUN JACKSON Not Available Start: 09-17-2024 End: 09-17-2024 Bamboo flowsheet Shaun Mccalloll SMOKE ROOM OPERATOR Work Phone: [facility] Start: 09-17-2024 End: 09-17-2024 Bamboo flowsheet Shaun Jackson SMOKE ROOM OPERATOR Work Phone: [facility] Start: 09-10-2024 End: 09-10-2024 Patient encounter procedure Arline Pocos DO Work Phone: [facility] Comment on above: Right wrist pain (Pr imary Dx); Pelvic pain; Other closed intra-articular fracture of distal end of right radius with routine healing, subsequent encounter; Closed fracture of superior ramus of left pubis, initial encounter ([facility]) Start: 09-10-2024 End: 09-10-2024 ambulatory ARLINE POCOS Not Available Start: 09-10-2024 End: 09-10-2024 ambulatory ARLINE POCOS Not Available Start: 09-03-2024 Non-patient / Non-visit Micheal Hernandezpa DO Work Phone: [facility] Work Phone: Start: 09-02-2024 Non-patient / Non-visit Micheal shana Tupa DO Work Phone: [facility] Work Phone: Start: 08-26-2024 Non-patient / Non-visit Micheal shana Tupa DO Work Phone: [facility] Phys[facility] Work Phone: Start: 08-25-2024 End: 09-05-2024 Evaluation and management of inpatient Damaso Charlton DO Work Phone: [facility] [place] [facility] Work Phone: Start: 08-22-2024 Non-patient / Non-visit Micheal Charlton DO Work Phone: [facility] Phys[facility] Work Phone: Start: 08-20-2024 End: 08-25-2024 Evaluation and management of inpatient Damaso Hernandezpa DO Work Phone: [facility] [place] [facility] Work Phone: Start: 08-13-2024 End: 08-13-2024 ambulatory Kavon Sams [facility] Work Phone: Start: 08-13-2024 End: 08-13-2024 Departed Referred Kavon Sams MD Work Phone: [facility] Start: 08-13-2024 End: 08-13-2024 ambulatory [facility] Start: 08-12-2024 End: 08-12-2024 Admission to same day surgery center Supa [facility] Start: 08-12-2024 End: 08-12-2024 ambulatory Supa Owen Facility:[facility] Start: 08-06-2024 End: 08-06-2024 ambulatory Meghan Ramachandran [facility] Work Phone: Start: 08-06-2024 End: 08-06-2024 Departed Referred Kavon Sams MD Work Phone: [facility] [...] 08-03-2024 Emergency department patient visit [facility] Start: 07-30-2024 End: 07-30-2024 Bamboo flowsheet Supa Davis Pocos DO Work Phone: [facility] Start: 07-30-2024 End: 07-30-2024 Bamboo flowsheet Supa Davis Pocos DO Work Phone: [facility] Start: 07-30-2024 End: 07-30-2024 Telephone encounter Cherie Cedeno PA-C Work Phone: [facility] Comment on above: Surgical Clearance Start: 07-30-2024 End: 07-30-2024 Patient encounter procedure Supa Owen DO Work Phone: [facility] Comment on above: Right wrist pain (Pr imary Dx); Closed Colles' fracture of right radius, initial encounter; Other closed fracture of distal end of right ulna, initial encounter; Parkinson's disease with dyskinesia, unspecified whether manifestations fluctuate (CMS/[facility]); Underweight Start: 07-30-2024 End: 07-30-2024 ambulatory SUPA Davis POCOS Not Available Start: 07-26-2024 End: 07-26-2024 Emergency department patient visit Sae Navjot Facility:[facility] Start: 07-24-2024 End: 07-24-2024 Emergency department patient visit Augie [facility] Start: 07-24-2024 End: 07-24-2024 ambulatory Kavon Sams [facility] Work Phone: Start: 07-24-2024 End: 07-24-2024 Departed Referred Kavon Sams MD Work Phone: [facility] Start: 07-16-2024 End: 07-16-2024 ambulatory CHERIE CEDENO Facility:[facility] Start: 07-16-2024 End: 07-16-2024 Office outpatient visit 40 minutes Cherie Cedeno PA-C Work Phone: [facility] Comment on above: Parkinson's disease with dyskinesia and fluctuating manifestations (HCC) (Primary Dx); Anxiety disorder due to known physiological condition; Hypophonia with hoarseness Start: 05-21-2024 End: 05-21-2024 Bamboo flowsheet Ctahie Gill SMOKE ROOM OPERATOR Work Phone: [facility] Start: 05-21-2024 End: 05-21-2024 Bamboo flowsheet Cathie Gill SMOKE ROOM OPERATOR Work Phone: [facility] Start: 05-21-2024 End: 05-21-2024 Office outpatient visit 25 minutes Cathie Gill SMOKE ROOM OPERATOR Work Phone: [facility] [...] 04-21-2024 End: 04-21-2024 Bamboo flowsheet Cathie Gill SMOKE ROOM OPERATOR Work Phone: [facility] Start: 04-21-2024 End: 04-21-2024 Bamboo flowsheet Cathie Gill SMOKE ROOM OPERATOR Work Phone: [facility] Start: 04-21-2024 End: 04-21-2024 Office outpatient visit 25 minutes Cathie Gill SMOKE ROOM OPERATOR Work Phone: [facility] Comment on above: Parkinson's disease, unspecified whether dyskinesia present, unspecified whether manifestations fluctuate (CMS/HCC) (Primary Dx); Dyskinesia; RLS (restless legs syndrome); Cerebral infarction, chronic; Bilateral carotid artery stenosis Start: 04-21-2024 End: 04-21-2024 ambulatory CATHIEGaurang GILL Not Available Start: 02-23-2024 End: 02-25-2024 Refill [employer]rie [employer] PA-C Work Phone: [facility] Comment on above: Refill Request Start: 02-22-2024 End: 02-22-2024 Office outpatient visit 40 minutes [employer] PA-C Work Phone: [facility] Comment on above: Parkinson's disease with dyskinesia and fluctuating manifestations (HCC) (Primary Dx) Start: 02-22-2024 End: 02-22-2024 ambulatory CHERIE WILIAN Facility:[facility] Start: 01-14-2024 End: 01-14-2024 [facility] Start: 01-14-2024 End: 01-14-2024 Office outpatient visit 40 minutes [email or web address] Work Phone: [facility] Comment on above: Parkinson's disease with dyskinesia and fluctuating manifestations (HCC) (Primary Dx) Start: 11-19-2023 End: 11-19-2023 ambulatory Rafa Abebe MD Facility:[facility] Start: 11-08-2023 Telephone encounter David Valente MD Work Phone: [facility] Comment on above: Medication Update/Am antadine Start: 10-22-2023 End: 10-22-2023 ambulatory Rafa Abebe MD Facility:[facility] Start: 10-17-2023 Refill Hiral Ortega APRN, .CNP Work Phone: [facility] Comment on above: Med Change Request Start: 10-17-2023 Telephone encounter David Valente MD Work Phone: [facility] Comment on above: Results (MRI) Start: 10-15-2023 End: 10-15-2023 ambulatory Hiral Ortega APRN.CORPORATE SAFETY DIRECTOR Work Phone: Neurology Comment on above: Parkinson's disease with dyskinesia and fluctuating manifestations (HCC) (Primary Dx) Start: 10-15-2023 End: 10-15-2023 Telemedicine consultation with patient Hiral Ortega APRN.CORPORATE SAFETY DIRECTOR Work Phone: Neurology Start: 10-09-2023 Telephone encounter David Valente MD Work Phone: [facility] Start: 10-07-2023 End: 10-07-2023 Subsequent hospital visit by physician Mri 4 Radio Main Q (I-Stat/1.5t/3t) Work Phone: MRI Q Comment on above: Spinal stenosis of c ervical region [M48.02] Abnormal posture [R2 9.3] 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 [M48.062] Start: 09-13-2023 End: 09-13-2023 Patient encounter procedure David Valente MD Work Phone: [facility] Comment on above: Hyperreflexia (Prima ry Dx); Spinal stenosis of cervical region; Abnormal posture; Spinal stenosis of lumbar region with neurogenic claudication; Neuropathy; Hypertension, unspecified type; Degenerative myopia with other maculopathy, bilateral eye; Parkinson's disease, unspecified whether dyskinesia present, unspecified whether manifestations fluctuate (HCC); Memory changes Start: 09-03-2023 End: 09-03-2023 ambulatory Rafa Abebe MD [facility]: [facility] Start: 08-20-2023 End: 08-20-2023 ambulatory Rafa Abebe MD Facility: [facility] Start: 07-30-2023 End: 07-30-2023 ambulatory Rafa Abebe MD Facility: [facility] Start: 07-16-2023 End: 07-16-2023 Emergency department patient visit [facility] Start: 06-23-2023 End: 06-23-2023 [facility] Start: 05-15-2023 End: 05-15-2023 ambulatory MD Kavon Sams Work Phone: [facility] Work Phone: Start: 05-15-2023 End: 05-15-2023 Patient encounter procedure MD Kavon Sams Work Phone: [facility] [place] Work Phone: Start: 10-09-2022 End: 10-10-[address] KAVON SAMS . Facility: Start: 05-24-2022 End: 05-25-[address] KAVON SAMS . Facility: Start: 05-08-2022 End: 05-10-2022 Evaluation and management of inpatient DR KAVON SAMS . Facility: Start: 03-29-2022 End: 03-29-[address] ANDREW PEDRAZA . Facility: Start: 12-27-2021 End: 12-28-[address] KAVON SAMS . Facility: Start: 08-13-2017 End: 08-14-2017 Ambulatory DEFAULT PHYSICIAN Facility:[facility] Start: 08-11-2017 End: 08-15-2017 Evaluation and management of inpatient REFERRED SELF Facility:[facility] Start: 07-02-2013 EKG myocardial ischemia David Valente MD Work Phone: [facility] Work Phone: Procedures Date Procedure Procedure Detail Performing Clinician Start: 12-15-2024 CT of head without contrast Trish Christensen MD Work Phone: Start: 12-15-2024 Plain chest X-ray Trish Christensen MD Work Phone: Start: 12-14-2024 CT cervical spine wi thout contrast Trish Christensen MD Work Phone: Start: 12-14-2024 CT of head without contrast Trish Christensen MD Work Phone: Start: 12-14-2024 Plain chest X-ray Trish Christensen MD Work Phone: Start: 10-29-2024 CT of head without contrast Trish Christensen MD Work Phone: Start: 10-28-2024 Plain X-ray abdomen Dannie Christensen MD Work Phone: Start: 10-28-2024 Plain chest X-ray Trish Christensen MD Work Phone: Start: 10-28-2024 Bacteria identified in Blood by Culture Trish Christensen MD Work Phone: Start: 10-28-2024 Respiratory Panel (PCR) Trish Christensen MD Work Phone: Start: 10-23-2024 Urine culture Trish navarrete MD Work Phone: Start: 10-01-2024 Radex wrist complete minimum 3 views Arline Pocos DO Work Phone: Start: 10-01-2024 Radiologic examinati on pelvis 1/2 views Arline Pocos DO Work Phone: Start: 09-10-2024 Radex wrist complete minimum 3 views Arline Pocos DO Work Phone: Start: 09-02-2024 Plain X-ray of left hip Damaso Tupa DO Work Phone: Start: 09-01-2024 CT of head without contrast Damaso Tupa DO Work Phone: Start: 08-30-2024 Urine culture Damaso T upa DO Work Phone: Start: 08-21-2024 Bacteria identified in Blood by Culture Damaso Tupa DO Work Phone: Start: 08-20-2024 Plain chest X-ray Patri ck Tupa DO Work Phone: Start: 08-20-2024 Bacteria identified in Blood by Culture Damaso Tupa DO Work Phone: Start: 08-20-2024 Urine culture Damaso Medina upa DO Work Phone: Start: 08-13-2024 Urine culture Damaso Medina upa DO Work Phone: Start: 08-12-2024 Open reduction of fr acture with internal fixation Supa Lexie Start: 08-06-2024 Urine culture Kavon malone MD [...] SERUM/TOX/VACCINE INTO MUSCLE, PERC APPROACH SUPA Irving HEJUANITO Start: 08-11-2017 MEASURE OF ARTERIAL SATURATION, PERIPHERAL, [...] Author Start: 09-17-2026 Diabetes Screening Diabetes Screenin [facility] Start: 09-12-2026 Diabetes Screening Diabetes Screenin g [facility] Start: 09-29-2025 End: 09-29-2025 Patient encounter procedure 09/29/2025 11:00 AM EDT Office Visit [facility] [address] [place] [address] Shaun Jackson NP [address] [place] [address] [facility] Start: 05-14-2025 End: 05-14-2025 Patient encounter procedure 05/14/2025 4:00 PM EST Office Visit [facility] [address] [place] [address] David Valente MD [address] [place] [address] [facility] Start: 02-26-2025 End: 02-26-2025 Patient encounter procedure 02/26/2025 10:30 AM EDT Office Visit [facility] [address] [facility] [address] [place] [address] Daniela Jaramillo NP [address] [facility] [address] [place] [address] [facility] Start: 02-09-2025 Influenza vaccination Influenza Vacc ine (#1) [facility] Start: 01-01-2025 End: 01-01-2025 Patient encounter procedure 01/01/2025 2:30 PM EDT Office Visit Geriatrics [address] [place], [place] [id number] Emiliano Faulkner MD [address] [place], [place] [id number] [facility] Comment on above: GEM Start: 12-25-2024 End: 12-25-2024 Patient encounter procedure 12/25/2024 10:00 AM EDT Office Visit [facility] [address] [place] [address] Judith Murphy PA [address] [place] [address] [facility] Start: 12-18-2024 [facility] Start: 12-16-2024 Referral to neurologist [facility] Start: 12-16-2024 Administration of prophylactic treatment [facility] Start: 12-15-2024 Hospital admission [facility] Start: 11-26-2024 End: 11-26-2024 Patient encounter procedure 11/26/2024 3:00 PM EDT Office Visit [facility] [address] [place] [address] Daniela Jaramillo NP [address] [place] [address] Arrived [facility] Comment on above: Arrived Start: 11-10-2024 End: 11-10-2024 Patient encounter procedure [facility] Start: 11-02-2024 [facility] Start: 10-31-2024 Administration of prophylactic treatment [facility] Start[facility]29[facility]: 10-28-[facility]24 Hospital admission [facility] Start: 10-01-2024 End: 10-01-2024 Patient encounter procedure 10/01/2024 9:45 AM EDT Office Visit [facility] [address] [place] [id number] Supa Owen, [address] [facility] [place] [id number] [facility] Start: 09-17-2024 End: 09-17-2024 Patient encounter procedure [facility] Comment on above: Arrived Start: 09-08-2024 End: 09-08-2024 Patient encounter procedure 09/08/2024 9:40 AM EDT Office Visit [facility] [address] [place] [id number] Cathie Gill NP [address] [place] [address] [facility] Start: 09-05-2024 [facility] Start: 09-02-2024 Consultation [facility] Start: 09-01-2024 [facility] Start: 09-01-2024 Referral to neurologist [facility] Start: 08-26-2024 [facility] Start: 08-25-2024 Hospital admission [facility] Start: 08-25-2024 Referral to clinical process manager [facility] Start: 08-25-2024 [facility] Start: 08-22-2024 Administration of prophylactic treatment [facility] Start: 08-22-2024 Referral to neurologist [facility] Start: 08-21-2024 Referral to rehabilitation physician [facility] Start: 08-21-2024 Bacteria identified in Blood by Culture Blood Culture [facility] Start: 08-21-2024 [facility] Start: 08-21-2024 Physical therapy procedure [facility] Start: 08-21-2024 Referral to occupati onal therapist [facility] Start: 08-21-2024 End: 08-21-2024 [facility] Start: 08-20-2024 Hospital admission [facility] Start: 08-20-2024 Urine culture [facility] Start: 08-20-2024 [facility] Start: 08-20-2024 Bacteria identified in Blood by Culture Blood Culture [facility] Start: 08-20-2024 Bacteria identified in Urine by Culture Urine Culture [facility] Start: 08-13-2024 Urine culture [facility] Start: 08-13-2024 Bacteria identified in Urine by Culture Urine Culture [facility] Start: 08-06-2024 Bacteria identified in Urine by Culture Urine Culture [facility] Start: 08-06-2024 Urine culture [facility] Start: 08-06-2024 End: 08-06-2024 Patient encounter procedure 08/06/2024 10:30 AM EST Office Visit [facility] [address] [place] [phone] Supa Owen DO [address] [place] [address] [facility] Start: 07-30-2024 End: 07-30-2024 Patient encounter procedure 07/30/2024 8:00 AM EST Office Visit NOELLE BUSBY [address] [place] [phone] Supa Owen DO [address] [facility] [place] [address] Arrived [facility] Comment on above: Arrived Start: 07-24-2024 Urine culture [facility] Start: 07-24-2024 Bacteria identified in Urine by Culture Urine Culture [facility] Start: 06-11-2024 Advance Directive Discussion Advance Directive Discussion [facility] Start: 05-21-2024 End: 05-21-2024 Patient encounter procedure [facility] [address] [address] Comment on above: Arrived Start: 05-03-2024 End: 05-03-2024 Professional / ancillary services management 05/03/2024 3:20 PM EST Ancillary Procedure [facility] [address] [place] [phone] Cerebral infarction, chronic; Bilateral carotid artery stenosis [facility] [address] [facility] Comment on above: Cerebral infarction, chronic; Bilateral carotid artery stenosis Start: 04-21-2024 End: 04-21-2024 Patient encounter procedure 04/21/2024 8:40 AM EST Office Visit [facility] [address] [place] [phone] Cathie Gill NP [address] [place] [address] Arrived [facility] [address] [facility] Comment on above: Arrived Start: 02-22-2024 End: 02-22-2024 Patient encounter procedure 02/22/2024 3:00 PM EDT Office Visit [facility] [address] [place] [address] Cherie Cedeno PA-C [address] [place], [place] [id number] [facility] Start: 02-10-2024 Covid-19 Vaccine ( season) Covid-19 Vaccine () [facility] Start: 02-10-2024 Covid-19 Vaccine () Covid-19 Vaccine () [facility] Start: 02-10-2024 Influenza vaccination [facility] Start: 01-14-2024 End: 01-14-2024 Patient encounter procedure 01/14/2024 2:00 PM EDT Office Visit [facility] [address] [place] [address] Cherie Cedeno PA-C [address] [place] [address] 3 mo f/u [facility] Comment on above: 3 mo f/u Start: 10-15-2023 End: 10-15-2023 Follow-up encounter 10/15/2023 10:30 AM EDT [facility] [address] [place] [address] Hiral Ortega APRN.CORPORATE SAFETY DIRECTOR [address] [place] [address] Follow up Neurology Comment on above: Follow up Start: 09-13-2023 End: 12-13-2023 SUJEY BY IFA WITH REFLEX [facility] Work Phone: Comment on above: Expected: 09/13/2023 , Expires: 12/13/2023 Start: 09-13-2023 End: 12-13-2023 Methylmalonate [Moles/volume] in Serum or Plasma [facility] Work Phone: Comment on above: Expected: 09/13/2023 , Expires: 12/13/2023 Start: 09-13-2023 End: 12-13-2023 PROTEIN ELECT RND UR W/INTERP [facility] Work Phone: Comment on above: Expected: 09/13/2023 , Expires: 12/13/2023 Start: 09-13-2023 End: 12-13-2023 PROTEIN ELECTROPHORESIS SERUM W/INTERP [facility] Work Phone: Comment on above: Expected: 09/13/2023 , Expires: 12/13/2023 Start: 06-11-2023 Advance Directive Discussion Advance Directive Discussion [facility] Start: 02-09-2023 Covid-19 Vaccine () Covid-19 Vaccine ( season) [facility] Start: 2021 RSV Vaccine (1 - 1-d ose 75+ series) RSV Vaccine (1 - 1-dose 75+ series) [facility] Start: 10-28-2020 Pneumococcal Vaccine : 50+ (2 of 2 - PCV) Pneumococcal Vaccine: 50+ (2 of 2 - PCV) [facility] Start: 10-28-2020 Pneumococcal Vaccine : 65+ (2 of 2 - PCV) Pneumococcal Vaccine: 65+ (2 of 2 - PCV) [facility] Start: 10-28-2020 Pneumococcal Vaccine : 65+ Years (2 of 2 - PCV) Pneumococcal Vaccine: 65+ Years (2 of 2 - PCV) [facility] Start: 2011 Screening for osteoporosis Bone Density Screening [facility] Start: 01-09-2011 Medicare Annual Well ness Visit Medicare Annual Wellness Visit [facility] Start: 2006 RSV Vaccine (1 - 1-d ose 60+ series) RSV Vaccine (1 - 1-dose 60+ series) [facility] Start: 02-09-1996 Shingrix Vaccine (1 of 2) Carepnter grix Vaccine (1 of 2) [facility] Start: 1965 Urine microalbumin profile DTaP,Tdap,Td Vaccine (1 - Tdap) [facility] Start: 02-09-1964 Annual PCP Team Filter Press Tender Head mary alice Disease Visit Annual PCP Team Chronic Disease Visit [facility] Start: 02-09-1964 Anxiety Screening Anxiety Screening [facility] Start: 02-09-1964 BP Controlled (<130/80) BP Con trolled (<130/80) [facility] Start: 02-09-1964 Depression Screening Depression Scre ening [facility] Start: 02-09-1964 Hepatitis C screening Hepatitis C Buzz guzman [facility] Anion gap measurement [facility] Basophils [#/volume] in Blood by Automated count [facility] Basophils/100 leukoc ytes in Blood by Automated count [facility] Eosinophils/100 leukocytes in Blood by Automated count [facility] Erythrocyte distribu tion width [Ratio] by Automated count [facility] Erythrocytes [#/volu me] in Blood [facility] Hematocrit [Volume Fraction] of Blood [facility] Hemoglobin [Mass/vol ume] in Blood [facility] Leukocytes [#/volume ] corrected for nucleated erythrocytes in Blood by Automated coun [facility] Leukocytes [#/volume ] in Blood [facility] Lymphocytes [#/volum e] in Blood by Automated count [facility] Lymphocytes/100 leukocytes in Blood by Automated count [facility] MCH [Entitic mass] b y Automated count [facility] MCHC [Mass/volume] b y Automated count [facility] MCV [Entitic volume] by Automated count [facility] Monocytes [#/volume] in Blood by Automated count [facility] Monocytes/100 leukoc ytes in Blood by Automated count [facility] End: 10-12-2024 MR Cervical spine WO contrast MRI CERVICAL SPINE WO IVCON Radiology Routine Spinal stenosis of cervical region 1 Occurrences starting 09/13/2023 until 10/12/2024 [facility] Work Phone: Comment on above: 1 Occurrences starti ng 09/13/2023 until 10/12/2024 End: 10-12-2024 MR Lumbar spine WO contrast MRI LUMBAR SPINE WO IVCON Radiology Routine Spinal stenosis of lumbar region with neurogenic claudication 1 Occurrences starting 09/13/2023 until 10/12/2024 [facility] Work Phone: Comment on above: 1 Occurrences starti ng 09/13/2023 until 10/12/2024 End: 10-12-2024 MR Thoracic spine WO contrast MRI THORACIC SPINE WO IVCON Radiology Routine Abnormal posture 1 Occurrences starting 09/13/2023 until 10/12/2024 [facility] Work Phone: Comment on above: 1 Occurrences starti ng 09/13/2023 until 10/12/2024 Neutrophils [#/volum e] in Blood by Automated count [facility] Neutrophils/100 leukocytes in Blood by Automated count [facility] Nucleated erythrocyt es [Presence] in Blood by Automated count [facility] Patient Education [facility] Work Phone: Patient referral [facility] Work Phone: Platelet mean volume [Entitic volume] in Blood by Automated count [facility] Platelets [#/volume] in Blood [facility] XR Pelvis 1 or 2 Views XR pelvis 1 or 2 views Imaging Routine Closed fracture of superior ramus of left pubis, initial encounter ([facility] 10/01/2024 8:32 AM EDT [facility] [employer] Wrist - right 3 Views XR wris t 3+ views right Imaging Routine Right wrist pain 07/30/2024 7:58 AM EST [facility]: XR Wrist - right 3 Views XR wris t 3+ views right Imaging Routine Right wrist pain 08/06/2024 8:11 AM EST [employer] Work Phone: XR Wrist - right 3 Views XR wris t 3+ views right Imaging Routine Other closed intra-articular fracture of distal end of right radius with routine healing, subsequent encounter 10/01/2024 8:32 AM EDT [employer] Work Phone: [facility] Immunizations Immunization Date Immunization Notes Care Provider [facility] 03-13-2022 unknown vaccine or i mmune globulin Kavon Sams MD Work Phone: [facility] 03-14-2021 Seasonal trivalent influenza vaccine, adjuvanted, preservative free Kavon Sams MD Work Phone: [facility] 03-14-2021 influenza virus vacc ine, unspecified formulation David Valente MD Work Phone: [facility] 03-18-2020 Seasonal trivalent influenza vaccine, adjuvanted, preservative free Kavon Sams MD Work Phone: [facility] 10-29-2019 pneumococcal polysaccharide vaccine, 23 valent Kavon Sams MD Work Phone: [facility] 04-08-2019 Seasonal trivalent influenza vaccine, adjuvanted, preservative free Kavon Sams MD Work Phone: [facility] 02-21-2018 influenza, high dose seasonal, preservative-free Kavon Sams MD Work Phone: [facility] Payers Date Payer Category Payer Medicare [id number] 2024 Self-pay [id number] 2023 Unknown 2020 Private Health Insurance [id number] 2011 Medicare [id number] 1959 Medicare [id number] 1959 Unknown [id number] 1946 Unknown [id number] 2.16.84 0.1.675215.3.579.2.593 1946 Unknown [id number] 2.16.84 0.1.242792.3.579.2.593 1946 Unknown [id number] 2.16.84 0.1.413599.3.579.2.593 1946 Unknown [id number] 2.16.84 0.1.996569.3.579.2.593 1946 Unknown [id number] 2.16.84 0.1.970129.3.579.2.593 1946 Unknown [id number] 2.16. 840.1.069279.3.579.2.196 1946 Unknown [id number] 2.16. 840.1.237990.3.579.2.196 1946 Unknown [id number] 2.16. 840.1.894759.3.579.2.196 1946 Unknown [id number] 2.16. 840.1.073085.3.579.2.196 1946 Unknown [id number] 2.16. 840.1.377635.3.579.2.196 1946 Unknown [id number] 2.16.8 40.1.790853.3.579.2.727 1946 Unknown [id number] 2.16.8 40.1.106478.3.579.2.727 1946 Unknown [id number] 2.16.8 40.1.390014.3.579.2.727 1946 Unknown [id number] 2.16.8 40.1.896436.3.579.2.727 1946 Unknown [id number] 2.16.8 40.1.595117.3.579.2.727 1946 Unknown [id number] 2.16.8 40.1.268501.3.579.2.727 1946 Unknown [id number] 2.16.8 40.1.327673.3.579.2.727 1946 Unknown [id number] 2.16.8 40.1.818461.3.579.2.1259 1946 Unknown [id number] 2.16.8 40.1.741994.3.579.2.1259 1946 Unknown [id number] 2.16.84 0.1.142583.3.579.2.1259 1946 Unknown [id number] 2.16.84 0.1.832710.3.579.2.1259 1946 Unknown [id number] 2.16.84 0.1.363209.3.579.2.1259 1946 Unknown [id number] 2.16.84 0.1.922124.3.579.2.1259 1946 Unknown [id number] 2.16.84 0.1.955353.3.579.2.1258 1946 Unknown [id number] 2.16.84 0.1.098959.3.579.2.1258 1946 Unknown [id number] 2.16.84 0.1.498686.3.579.2.1258 1946 Unknown [id number] 2.16.84 0.1.650268.3.579.2.1258 1946 Unknown [id number] 2.16.84 0.1.053151.3.579.2.1258 1946 Unknown [id number] 2.16.84 0.1.188760.3.579.2.1258 1946 Unknown [id number] 2.16.84 0.1.356405.3.579.2.1258 1946 Unknown [id number] 2.16.84 0.1.779873.3.579.2.1258 1946 Unknown [id number] 2.16.84 0.1.987945.3.579.2.1258 1946 Unknown [id number] 2.16.84 0.1.971986.3.579.2.1258 1946 Unknown [id number] 2.16.84 0.1.371875.3.579.2.1259 Medicare [id number] Unknown [id number] 2.16.8 40.1.774368.3.579.2.531 Unknown [id number] 2.16.8 40.1.077086.3.579.2.531 Unknown [id number] 2.16.8 40.1.287243.3.579.2.531 Unknown [id number] 2.16.8 40.1.341586.3.579.2.531 Unknown [id number] 2.16.8 40.1.748712.3.579.2.531 Unknown [id number] 2.16.8 40.1.076967.3.579.2.531 Unknown [id number] 2.16.8 40.1.072261.3.579.2.531 Unknown [id number] 2.16.8 40.1.260572.3.579.2.531 Unknown [id number] 2.16.8 40.1.033405.3.579.2.531 Social History Date Type Detail Facility [facility] Work Phone: Start: 1945 Sex Assigned At Female F [facility] Start: 03-04-2020 End: 12-17-2024 Tobacco smoking status Ex-smoker (finding) [facility] Start: 09-06-2023 End: 09-13-2023 Sex Assigned At Female [facility] Start: 07-02-1958 End: 04-30-2019 History of tobacco use Current smoker [facility] Start: [birth year]-02-1957 End: 04-30-2019 History of tobacco use Cigarette Smoker [facility] Start: 09-06-2023 End: 09-13-2023 Cigarettes smoked current (pack per day) - Reported 0.5 [facility] Start: 09-13-2023 End: 02-22-2024 Tobacco use and exposure Smokeless tobacco non-user [facility] Start: 09-13-2023 End: 07-16-2024 Alcohol intake Current non-drinker of alcohol (finding) [facility] Adult Depression Screening Assessment 0 [facility] Start: 1945 Sex Assigned At Not on file [facility] Start: 10-25-2023 End: 07-30-2024 Tobacco smoking status NHIS Never smoked tobacco [facility] Start: 10-29-2023 End: 12-25-2024 Alcoholic beverage intake Lifetime non-drinker (finding) [facility] Start: 10-25-2023 Alcohol Comment caffeine: 1-2 cups per day [facility] Tobacco smoking stat [place] [facility] Unknown if ever smoked [facility] Work Phone: Start: 07-26-2024 End: 09-05-2024 Sex Female (finding) [facility] Start: 09-04-2024 End: 11-02-2024 SDOH Follow up SDOH Follow up [facility] Work Phone: Medical Equipment Procedure Code Equipment Code Equipment Origin al Text Equipment Identifier Dates WRIST FRACTURE O RIF Pocos DO, Arline 08/12/24 Non Biological Wrist R FDA Start: 08-12-2024 WRIST FRACTURE O RIF Pocos DO, Arline 08/12/24 Non Biological Wrist R FDA Start: 08-12-2024 WRIST FRACTURE O RIF Pocos DO, Arline 08/12/24 Non Biological Wrist R FDA Start: 08-12-2024 WRIST FRACTURE O RIF Pocos DO, Arline 08/12/24 Non Biological Wrist R FDA Start: 08-12-2024 WRIST FRACTURE O RIF Pocos DO, Arline 08/12/24 Non Biological Wrist R FDA Start: 08-12-2024 WRIST FRACTURE O RIF Pocos DO, Arline 08/12/24 Non Biological Wrist R FDA Start: 08-12-2024 Goals Date Patient Goal Desired Activity /State Functional Status Date Assessment Result Facility 12-25-2024 Patient Health Quest ionnaire 2 item (PHQ-2) [Reported] [facility] 11-02-2024 Functional status Patient at Baseline [facility] Work Phone: 09-05-2024 Functional status Patient at Baseline [facility] Work Phone: 08-25-2024 Functional status Patient at Baseline [facility] Work Phone: 08-07-2024 Functional Status No [facility] 08-03-2024 Functional Status N/A [facility] 07-26-2024 Functional Status N/A [facility] 07-24-2024 Functional Status N/A [facility] 07-16-2023 Functional Status N/A [facility] 06-23-2023 Functional Status N/A [facility] 06-23-2023 Functional Status [facility] 08-20-2014 Are you deaf, or do you have serious difficulty hearing No 08/20/2014 7:00 AM Felicia Guillory LPN No [facility] 08-20-2014 Are you blind, or do you have serious difficulty seeing, even when wearing glasses No 08/20/2014 7:00 AM Felicia Guillory LPN No [facility] 08-20-2014 Do you have serious difficulty walking or climbing stairs No 08/20/2014 7:00 AM Felicia Guillory LPN No [facility] 08-20-2014 Do you have difficul ty dressing or bathing No 08/20/2014 7:00 AM Felicia Guillory LPN No [facility] 08-20-2014 Because of a physica l, mental, or emotional condition, do you have difficulty doing errands alone such as visiting a physician's office or shopping No 08/20/2014 7:00 AM Felicia Guillory LPN No [facility] Mental Status Date Assessment Result Facility 11-02-2024 Cognitive function Cognitive Sta tus Patient at Baseline [facility] Work Phone: 09-05-2024 Cognitive function Cognitive Sta tus Patient at Baseline [facility] Work Phone: 08-25-2024 Cognitive function Cognitive Sta tus Patient at Baseline [facility] Work Phone: 08-20-2014 Because of a physica l, mental, or emotional condition, do you have serious difficulty concentrating, remembering, or making decisions No 08/20/2014 7:00 AM Felicia Guillory LPN [facility] Clinical Notes 06-23-2023 to 01-06-2025 Patient InstructionsCherie Cedeno PA-C - 12/29/2024 9:00 AM BECCA Stone - 12/25/2024 10:00 AM EDTTelephone Krista - Shanae Burt - 12/24/2024 4:27 PM EDT Note Date & Type Note Facility 01-06-2025 Note SUBJECTIVE Reason for Visit: Judith Land is a 79 y.o. year old female patient being seen for LE edema. HPI: Judith Land is a 79 y.o. year old female with significant medical history of hypertension, hyperlipidemia, COPD, and Parkinson's. Recent emergency room visit 10/23/2024 reported eating dinner and had emesis episode, CTA was consistent with aspiration pneumonia. 01/06/2025 office visit: Patient seen and evaluated in the office today, accompanied by her daughter. Chief complaint is lower extremity edema. +2-3 on exam. LE edema started beginning of the year and has progressively worsened. She notes that spironolactone, hydrochlorothiazide, and lisinopril were discontinued at some point due to worsening renal function. Otherwise, she denies SOB, chest pain, palpitations, lightheadedness or dizziness. 08/13/2024 office visit (Sophie Morris): Judith Land is a 79 y.o. female [...] Compression stockings are helping. Weight has been stable Medical History[1] Surgical History[2] Problem List[3] family history includes Coronary artery disease in her mother's sister; Stroke in her brother, maternal grandmother, and mother; cabg in her mother's sister. Social History[4] OBJECTIVE Visit Vitals OB Status Postmenopausal Smoking Status Former Physical Exam Constitutional: General Appearance: well-developed, appears stated age. Level of Distress: no acute distress. Neck: Jugular Veins: normal jugular venous pressure. Lungs: Auscultation: no rales or rhonchi and normal breath sounds. Cardiovascular: Rate And Rhythm: regular Heart Sounds: normal S1 and s2; Systolic Murmur: not heard. Diastolic Murmur: not heard. Extremities: +2-3 LE edema Peripheral Pulses: Pulses: full and equal in all extremities except if noted. Abdomen: Inspection and Palpation: non distended or tender and soft. Musculoskeletal: Inspection: no joint tenderness or swelling. Neurologic: Gait: normal gait. Psychiatric: Mental Status: alert and normal affect. Skin: Inspection and Palpation: warm and dry. Allergies: Allergies[5] Outpatient Medications: Current Outpatient Medications Medication Instructions ALPRAZolam (Xanax) 1 mg tablet 1 tablet, oral, Every morning amantadine (Symmetrel) 100 mg tablet TAKE 1 TABLET BY MOUTH TWO TIMES A DAY. TAKE WITH FIRST AND SECOND DOSE OF SINEMET. aspirin 81 mg EC tablet Every 24 hours carbidopa-levodopa (Sinemet) 25-100 mg tablet TAKE 1/2 TABLET BY MOUTH 3 TIMES A DAY FOR 7 DAYS THEN 1 TABLET 3 TIMES A DAY *7AM, NOON AND 5PM* cholecalciferol (VITAMIN D-3) 2,000 Units, oral, Daily RT cyclobenzaprine (FLEXERIL) 10 mg, oral, 2 times daily PRN gabapentin (Neurontin) 300 mg capsule TAKE 1 CAPSULE BY MOUTH ONCE DAILY X3DAYS, 1 CAPSULE TWICE DAILY X3DAYS THEN 1 CAPSULE 3 TIMES DAILY hydroCHLOROthiazide (HYDRODIURIL) 25 mg, oral, Daily isosorbide mononitrate ER (IMDUR) 60 mg, oral, Daily Klor-Con M20 20 mEq ER tablet 20 mEq, oral, 2 times daily lisinopril 40 mg, oral, Daily pantoprazole (ProtoNix) 40 mg EC tablet TAKE 1 TABLET BY MOUTH ONCE A DAY BEFORE BREAKFAST *DO NOT CRUSH/CHEW/SPLIT* pravastatin (PRAVACHOL) 20 mg, oral, Nightly rasagiline (AZILECT) 1 mg, Daily rOPINIRole (Requip) 0.5 mg tablet Every 8 hours sucralfate (CARAFATE) 1 g, oral, Daily Recent Labs: No visits with results within 6 Month(s) from this visit. Latest known visit with results is: Admission on 09/17/2023, Discharged on 09/18/2023 Component Date Value MSSA DNA 09/17/2023 Negative MRSA DNA 09/17/2023 Negative Glucose POC 09/17/2023 71 Sodium 09/18/2023 138 Potassium 09/18/2023 4.2 Chloride 09/18/2023 106 CO2 09/18/2023 26 BUN 09/18/2023 22 Creatinine 09/18/2023 0.96 Glucose 09/18/2023 126 (H) Calcium 09/18/2023 9.1 Anion Gap 09/18/2023 10 eGFR 09/18/2023 60.9 BUN/Creatinine Ratio 09/18/2023 22.9 Magnesium 09/18/2023 1.8 (L) Auto WBC 09/18/2023 6.49 RBC 09/18/2023 4.18 Hemoglobin 09/18/2023 13.1 Hematocrit 09/18/2023 39.7 MCV 09/18/2023 95.0 MCH 09/18/2023 31.3 MCHC 09/18/2023 33.0 RDW 09/18/2023 14.4 Platelets 09/18/2023 301 nRBC % 09/18/2023 0.0 Ventricular Rate 09/18/2023 111 Atrial Rate 09/18/2023 111 SD Interval 09/18/2023 184 QRS DURATION 09/18/2023 88 QT Interval 09/18/2023 316 QTC CALCULATION(BAZETT) 09/18/2023 429 P [place] 09/18/2023 (more content not included)... [facility] 12-29-2024 Instructions Cherie Cedeno PA-C - 12/29/2024 9:46 AM EDT It was a pleasure to see you today. We addressed the following diagnoses: Parkinson's disease with dyskinesia and fluctuating manifestations (hcc) (primary encounter diagnosis) Slow transit constipation Gait instability Fear of falling My recommendations are as follows: 12/29/2024 Visit: - Carbidopa-levodopa (Sinemet CR): take 1 tablet by mouth four times daily--at breakfast (around 7-8 AM), at lunch (around 12 PM), at dinner (around 5 PM), and at bedtime. - Amantadine: take 1 tablet by mouth three times daily with breakfast, lunch, and dinner. NO CHANGE. - Rasagiline (Azilect): take 1 tablet by mouth every morning. NO CHANGE. - Senna: take 2 tablets by mouth in the morning and 2 tablets by mouth in the evening as needed for constipation. - Miralax: increase to 1 capfuls mixed in your morning coffee; adjust by a quarter-cap as needed to achieve soft, regular bowel movements. - Nutrition support: continue regular meals and add Gary Instant Breakfast (or similar) daily to help regain weight. - Home therapy services: continue physical therapy twice weekly and occupational therapy twice weekly for strength, balance, chair transfers, and stair practice. - Speech therapy: begin home visits to improve voice volume, clarity, and safe swallowing techniques. - Neurology follow-up: in-person appointment with Dr. Valente on May 14 at 4:00 PM. - Plan to follow up in spring with me after seeing Dr. Valente. Movement Disorders Medication Schedule: Medications 8am 12pm 5pm BED ropinerole 0.25mg 1 rasagiline 1mg 1 sinemet CR 25/100mg 1 1 1 1 amantadine 100 mg 1 1 1 Return at or around: 03/31/25 Your current [facility] Movement Disorders Team includes: Primary Movement Disorders Neurologist: David Valente MD Primary Movement Disorders Advanced Practice Provider: Cherie Cedeno PA-C If there are any concerns before your next visit, please call or you can send a message through [employer]. You can also now schedule and select appointments through [employer]. Cherie Cedeno PA-C documented in this encounter [facility] 12-29-2024 History of Presen t illness Narrative [facility] - FOLLOW UP EVALUATION Md Kavon Sams (Inactive) No address on file Dear Md Kavon Sams (Inactive): I had the pleasure of seeing Ms. Land for follow-up today. As you know she is a 79 year old right-handed female with a history of parkinson disease since 2015. Subjective Previous Plan 07/16/2024 Visit: Parkinson's Disease - I am so glad that you have continued to do well. We will add a third amantadine with your evening dose to help with the jerking movements Balance and strength - keep up your home exercises from Parkinson's Disease therpay Look into Parkinson's Disease Exercise Class at your local [facility] Voice - The Parkinson Voice Project makes daily videos with voice exercises to help keep your voice loud and clear. This is free on [employer] Handwriting - take a look at Fat Pens for tremor. This often will help people write easier I would like to see you back in about 7 months, before next winter. If you need assistance with scheduling, please call [phone], option 2 to speak with one of our scheduling team members. Interval History: Judith Land is a 79-year-old female with a history of Parkinson's disease, presenting for follow-up. She is accompanied by her daughter, who provides additional history. Judith has experienced a challenging year, marked by multiple hospitalizations and falls. In June, she developed a UTI, followed by a fall in July that resulted in a wrist fracture, necessitating surgery in early August. During a subsequent 16-day hospital stay, she fell again, fracturing her pubic bone. These incidents have significantly impacted her mobility and overall health. She was recently hospitalized for five days due to elevated blood pressure and confusion. During this stay, the staff neurologist reduced her amantadine from three times daily to once daily, leading to significant dyskinesias. Her daughter has since resumed the original dosing schedule, noting improvement in symptoms. Judith reports persistent difficulty with mobility, particularly when rising from a chair and navigating stairs, which she finds terrifying. She uses a rollator walker as needed for stability, but not frequently. She also experiences worsening constipation, managed with Senna-Lax and Miralax. She is currently receiving home health services, including occupational and physical therapy twice weekly, with plans to initiate speech therapy due to emerging speech and cognitive difficulties. She does not endorse dysphagia. Her current medication regimen includes Sinemet CR at breakfast (7-8 AM), lunch (12 PM), and dinner (5 PM), amantadine three times daily, rasagiline in the morning, and pramipexole at night. She reports that her medications generally take effect within 15-20 minutes and provide symptom relief for several hours. Movement Disorders Medications Schedule - as of the start of the visit: Medications breakfast lunch bedtime ropinerole 0.25mg 1 azilect 1mg 1 sinemet CR 25/100mg 1 1 1 amantadine 100 mg 1 1 1 Prior Anti-Parkinson Therapies Carbidopa/Levodopa Rasagiline Ropinirole ALLERGIES Allergen Reactions Aleve [Naproxen Sod* Unknown Sulfa (Sulfonamide * Anaphylaxis Current Outpatient Medications Medication Sig polyethylene glycol 3350 (MIRALAX) 17 gram/dose powder Take 17 g by mouth once daily. Dissolve dose in 4 - 8 ounces of liquid and take as directed. senna (SENOKOT) 8.6 mg tab Take 8.6 mg by mouth two times a day as needed for constipation. pantoprazole DR (PROTONIX) 40 mg tablet Take 40 mg by mouth once daily. Every Morning dilTIAZem CD (CARDIZEM CD, CARTIA XT) 180 mg 24 hr capsule Take 180 mg by mouth once daily. amantadine HCl (SYMMETREL) 100 mg tablet TAKE 1 TABLET BY MOUTH 3 TIMES A DAY WITH EACH DOSE OF SINEMET rasagiline (AZILECT) 1 mg tab Take by mouth. rOPINIRole (REQUIP) 0.25 mg tablet [...] mg by mouth at bedtime as needed. Cholecalciferol, Vitamin D3, (D3 DOTS) 2,000 unit tab Take 2,000 Units by mouth once daily. MULTIVITAMIN (VITAMIN DAILY ORAL) Take by mouth once daily. carbidopa-levodopa CR (SINEMET CR) 25-100 mg per tablet Take 1 tablet by mouth four times daily. Take at 8am, 12pm, 5pm, and bedtime. gabapentin (NEURONTIN) 300 mg capsule TAKE 1 CAPSULE BY MOUTH ONCE DAILY X3DAYS, 1 CAPSULE TWICE DAILY X3DAYS THEN 1 CAPSULE 3 TIMES DAILY KLOR-CON M20 20 mEq tablet Take 1 tablet by mouth every 12 hours. cyclobenzaprine (FLEXERIL) 10 mg tablet Take 10 mg by mouth. pravastatin 20 mg tablet Take 20 mg by mouth once daily. lisinopril-hydrochlorothiazide 20-25 mg per tablet Take 1 tablet by mouth once daily. potassium chloride (KLOR-CON 10) 10 mEq tablet Take 20 mEq by mouth once daily. AMLODIPINE BESYLATE (AMLODIPINE ORAL) Take 10 mg by mouth once daily. No current facility-administered medications for this visit. Objective Vital Signs: BP 146/82 (BP Site: Left Arm, BP Position: Sitting, BP Cuff Size: Regular Adult) Pulse 83 Wt 46.4 kg (102 lb 4.8 oz) SpO2 96% BMI 16.51 kg/m General Physical Examination: Awake, alert, interactive, no acute distress, well-kept woman. MDS-UPDRS Motor subscale condition of exam Medication Off/On/Naiive ON Time of UPDRS 0600 Time of Last Medication 0925 Last Medication Taken Sinemet CR 25-100 1 tab + Amantadine + Rasagiline DBS Right N/A DBS Left N/A MDS-UPDRS Motor subscale scores Speech 1-Slight. Loss of modulation, diction or volume, but still all words easy to understand. Facial Expression 1-Slight. Minimal masked facies manifested only by decreased frequency of blinking. Rigidity Neck 2-Mild. Rigidity detected without the activation maneuver, but full range of motion is easily achieved. Rigidity Right Upper Extremity 1-Slight. Rigidity only detected with activation maneuver. Rigidity Left Upper Extremity 1-Slight. Rigidity only detected with activation maneuver. Rigidity Right Lower Extremity 1-Slight. Rigidity only detected with activation maneuver. Rigidity Left Lower Extremity 0-Normal. No rigidity. Finger Taps Right 2-Mild. a) 3 to 5 interruptions during tapping, b) mild slowing, c) the amplitude decrements midway in the 10-tap sequence. Finger Taps Left 2-Mild. a) 3 to 5 interruptions during tapping, b) mild slowing, c) the amplitude decrements midway in the 10-tap sequence. Hand Movements Right 1-Slight. a) the regular rhythm is broken with one or two interruptions or hesitations of the movement, b) slight slowing, c) the amplitude decrements near the end of the task. Hand Movements Left 0-Normal. No problem. Arm Movements Right 1-Slight. a) the regular rhythm is broken with one or two interruptions or hesitations of the movement, b) slight slowing, c) the amplitude decrements near the end of the sequence. Arm Movements Left 2-Mild. a) 3 to 5 interruptions during the movements, b) mild slowing, c) the amplitude decrements midway in the sequence. Toe Taps Right 0-Normal. No [...] but with substantial gait impairment. Gait Freezing 1-Slight. Freezing on starting, turning, or walking through doorway with a single halt during any of these events, but then continues smoothly without freezing during straight walking. Posture Stability 3-Moderate. Stands safely, but with absence of postural response, falls if not caught by examiner. Posture 3-Moderate. Stooped posture, scoliosis or leaning to one side that cannot be corrected volitionally to a normal posture by the patient. Body Bradykinesia 1-Slight. Slight global slowness and poverty of spontaneous movements. Postural Tremor Hand Right 2-Mild. Tremor is at least 1 but less than 3 cm in amplitude. Postural Tremor Hand Left 2-Mild. Tremor is at least 1 but less than 3 cm in amplitude. Kinetic Tremor Right 2-Mild. Tremor is at least 1 but less than 3 cm in amplitude. Kinetic Tremor Left 2-Mild. Tremor is at least 1 but less than 3 cm in amplitude. Rest Tremor Amplitude Right Upper Extremity 1-Slight. < 1 cm in maximal amplitude. Rest Tremor Amplitude Left Upper Extremity 1-Slight. < 1 cm in maximal amplitude. Rest Tremor Amplitude Right Lower Extremity 0-Normal. No tremor. Rest Tremor Amplitude Left Lower Extremity 0-Normal. No tremor. Rest Tremor Amplitude Lip/Jaw 0-Normal. No tremor. Rest Tremor Constancy 0-Normal. No tremor. MDS-UPDRS Motor subscale totals Left Total 13 Right Total 12 Midline Total 17 Tremor Total / 10 10 PIGD Total / 3 6 Overall Total 42 Change Better/Worse WORSE % Change Compared to Last Filed Total (!) 147.05 Assessment and Plan: Assessment Ms. Land is a right-handed 79 year old female with Parkinson's Disease since 2014. She presents to [facility] spring for care after many years of local care. Sinemet was reinitiated, as it had been discontinued prior to consult with our team. After changing Sinemet IR to Sinemet CR due to severe dyskinesias on 1 tablet TID, she notes remarkable improvement. In 2024 she has experienced multiple hospitalizations, falls, fractures, and subsequent stays at rehabilitation facilities. Her daughter notes sizable weight loss and worsening gait instability, while the patient notes significant fear of falling. Home physical therapy and occupational therapy will be critical to helping her regain strength. Discussed that this is something that medication cannot fix. The following are the current problems noted and addressed during this visit: Parkinson's disease with dyskinesia and fluctuating manifestations (hcc) (primary encounter diagnosis) Slow transit constipation Gait instability Fear of falling Plan 12/29/2024 Visit: 1. Parkinson's disease with dyskinesia and fluctuating manifestations (HCC) (G20.B2) 2. Gait instability (R26.81) 3. Fear of falling (F40.298) - Multiple recent hospitalizations with medication changes have worsened tremors and functional status. - Reviewed recent medication changes made by local inpatient neurology at recent stay earlier this month; patient experienced significant worsening of dyskinesias when amantadine was reduced to once daily; symptoms improved after resuming amantadine TID. - Exam shows increased bradykinesia, motor fatigue, and gait instability. Notabaly deteriorated UPDRS. - Increase Sinemet CR to 1 tablet QID (add bedtime dose), as patient notes the morning is her most symptomatic time. - Discussed benefit of adding Sinemet IR in the future. - Continue home PT and OT; initiate speech therapy for dysarthria. - Follow-up with Dr. Valente on May 14 at 4:00 PM. 4. Slow transit constipation (K59.01) - Chronic issue, worsening recently. - Added Senna-Lax 2 tablets BID to schedule as of two weeks ago, and consistently taking Miralax 1 capful daily. - Advised to increase Miralax to 1.5 capfuls daily to improve stool consistency. Interested in clinical research? Not discussed Updated Movement Disorders Medication Schedule: Medications 8am 12pm 5pm BED ropinerole 0.25mg 1 rasagiline 1mg 1 sinemet CR 25/100mg 1 1 1 1 amantadine 100 mg 1 1 1 Thank you for allowing me to be part of the clinical care of this patient! I look forward to continued participation in the patient s care with you. Please do not hesitate to call with any questions. Sincerely, Cherie Cedeno PA-C documented in this encounter [facility] 12-29-2024 Note HNO ID: [id number] Author: CHERIE CEDENO PA-C Service: ? Author Type: Physician Manager Customer Service Type: Progress Notes Filed: 12/29/2024 10:02 Note Text: [facility] - FOLLOW UP EVALUATION Md Kavon Sams (Inactive) No address on file Dear Md Kavon Sams (Inactive): I had the pleasure of seeing Ms. Land for follow-up today. As you know she is a 79 year old right-handed female with a history of parkinson disease since 2014. Subjective Previous Plan 07/16/2024 Visit: Parkinson's Disease - I am so glad that you have continued to do well. We will add a third amantadine with your evening dose to help with the jerking movements Balance and strength - keep up your home exercises from Parkinson's Disease therpay Look into Parkinson's Disease Exercise Class at your local [facility] Voice - The Parkinson Voice Project makes daily videos with voice exercises to help keep your voice loud and clear. This is free on [employer] Handwriting - take a look at Fat Pens for tremor. This often will help people write easier I would like to see you back in about 7 months, before next winter. If you need assistance with scheduling, please call [phone], option 2 to speak with one of our scheduling team members. Interval History: Judith Land is a 79-year-old female with a history of Parkinson's disease, presenting for follow-up. She is accompanied by her daughter, who provides additional history. Judith has experienced a challenging year, marked by multiple hospitalizations and falls. In June, she developed a UTI, followed by a fall in July that resulted in a wrist fracture, necessitating surgery in early August. During a subsequent 16-day hospital stay, she fell again, fracturing her pubic bone. These incidents have significantly impacted her mobility and overall health. She was recently hospitalized for five days due to elevated blood pressure and confusion. During this stay, the staff neurologist reduced her amantadine from three times daily to once daily, leading to significant dyskinesias. Her daughter has since resumed the original dosing schedule, noting improvement in symptoms. Judith reports persistent difficulty with mobility, particularly when rising from a chair and navigating stairs, which she finds terrifying. She uses a rollator walker as needed for stability, but not frequently. She also experiences worsening constipation, managed with Senna-Lax and Miralax. She is currently receiving home health services, including occupational and physical therapy twice weekly, with plans to initiate speech therapy due to emerging speech and cognitive difficulties. She does not endorse dysphagia. Her current medication regimen includes Sinemet CR at breakfast (7-8 AM), lunch (12 PM), and dinner (5 PM), amantadine three times daily, rasagiline in the morning, and pramipexole at night. She reports that her medications generally take effect within 15-20 minutes and provide symptom relief for several hours. Movement Disorders Medications Schedule - as of the start of the visit: Medications breakfast lunch bedtime ropinerole 0.25mg 1 azilect 1mg 1 sinemet CR 25/100mg 1 1 1 amantadine 100 mg 1 1 1 Prior Anti-Parkinson Therapies Carbidopa/Levodopa Rasagiline Ropinirole ALLERGIES Allergen Reactions Aleve [Naproxen Sod* Unknown Sulfa (Sulfonamide * Anaphylaxis Current Outpatient Medications Medication Sig polyethylene glycol 3350 (MIRALAX) 17 gram/dose powder Take 17 g by mouth once daily. Dissolve dose in 4 - 8 ounces of liquid and take as directed. senna (SENOKOT) 8.6 mg tab Take 8.6 mg by mouth two times a day as needed for constipation. pantoprazole DR (PROTONIX) 40 mg tablet Take 40 mg by mouth once daily. Every Morning dilTIAZem CD (CARDIZEM CD, CARTIA XT) 180 mg 24 hr capsule Take 180 mg by mouth once daily. amantadine HCl (SYMMETREL) 100 mg tablet TAKE 1 TABLET BY MOUTH 3 TIMES A DAY WITH EACH DOSE OF SINEMET rasagiline (AZILECT) 1 mg tab Take by mouth. rOPINIRole (REQUIP) 0.25 mg tablet [...] mg by mouth at bedtime as needed. Cholecalciferol, Vitamin D3, (D3 DOTS) 2,000 unit tab Take 2,000 Units by mouth once daily. MULTIVITAMIN (VITAMIN DAILY ORAL) Take by mouth once daily. carbidopa-levodopa CR (SINEMET CR) 25-100 mg per tablet Take 1 tablet by mouth four times daily. Take at 8am, 12pm, 5pm, and bedtime. gabapentin (NEURONTIN) 300 mg capsule TAKE 1 CAPSULE BY MOUTH ONCE DAILY X3DAYS, 1 CAPSULE TWICE DAILY X3DAYS THEN 1 CAPSULE 3 TIMES DAILY KLOR-CON M20 20 mEq tablet Take 1 tablet by mo (more content not included)... [facility] 12-25-2024 History of Presen t illness Narrative Images from the original note were not included. Subjective Patient ID: Judith Land is a 79 y.o. female who presents for ER Follow-up. Pt went to Er on 12/14 due to altered mental state and weakness , BP was high. Here with daughter, Patricia. Pt is doing better since ER visit , she is losing weight she is drinking boost, carnation instant breakfast (just started within the last few days), and she is eating all and every meal. Drinks water all day and apple juice. Doesn't have a lot of energy. HH is going to start PT and OT Pt does have an appt with neurologist Sunday at [facility] Her ankles and feet are swelling , been going on for awhile she does use compression socks pt was on water pill but she was taken off this. Been going on over the last 6 months. Legs are not painful. Does have Home Health coming to the house. Has seen Nephrology in the past, but pt did not like that doctor. He wanted to do surgery for kidney stones and pt refused. It was a doctor at the [facility]. Does follow Dr. Viera at [facility]. Pt refuses stress test that was recommended due to awful experience with the last one, her heart rate went very high and they couldn't get it back down. Does have h/o A fib. Sees [facility] on [facility]. Over the past 2 weeks, how often have you been bothered by any of the following problems? Little interest or pleasure in doing things: Not at all Feeling down, depressed, or hopeless: Not at all Patient Health Questionnaire-2 Score: 0 Current Outpatient Medications on File Prior to Visit Medication Sig Dispense Refill [facility] Senna 8.6 MG tablet TAKE 2 TABLETS BY MOUTH TWICE A DAY NEEDED FOR CONSTIPATION hydrALAZINE (Apresoline) 25 MG tablet TAKE 1 TABLET BY MOUTH TWICE A DAY WITH FOOD FOR 30 DAYS ipratropium-albuterol (Duo-Neb) 0.5-2.5 mg/3 mL nebulizer solution Three times daily as needed for wheezing QUEtiapine (SEROquel) 25 MG tablet TAKE 1 TABLET BY MOUTH EVERY DAY AT BEDTIME FOR 30 DAYS [DISCONTINUED] lisinopril 10 MG tablet Daily ALPRAZolam (Xanax) 1 MG tablet Take 1.5 tablets (1.5 mg) by mouth at bedtime 1.5 tab 45 tablet 0 amantadine (Symmetrel) 100 MG tablet Take 100 mg by mouth in the morning and 100 mg in the evening and 100 mg before bedtime. aspirin 81 MG EC tablet Take 81 mg by mouth Daily carbidopa-levodopa CR (Sinemet CR) 25-100 MG ER tablet TAKE 1 TABLET BY MOUTH 3 TIMES A DAY (7AM, 12PM AND 5PM) [facility] Acetaminophen Ex St 500 MG tablet Take 500 mg by mouth every 6 (six) hours if needed dilTIAZem CD (Cardizem CD) 180 MG 24 hr capsule Take 1 capsule (180 mg) by mouth Daily 100 capsule 3 KLOR-CON 20 MEQ ER tablet Take 1 tablet by mouth in the morning and 1 tablet in the evening. Take with meals. Lutein-Zeaxanthin 25-5 MG capsule 1 capsule pantoprazole (ProtoNix) 40 MG EC tablet Take 40 mg by mouth in the morning. Take before meals. rasagiline (Azilect) 1 MG tablet TAKE 1 TABLET BY MOUTH EVERY DAY 90 tablet 1 rOPINIRole (Requip) 0.5 MG tablet Take 0.5 mg by mouth at bedtime [DISCONTINUED] amLODIPine (Norvasc) 5 MG tablet 1 (one) time each day at the same time [DISCONTINUED] dilTIAZem CD (Cardizem CD) 180 MG 24 hr capsule TAKE 1 CAPSULE BY MOUTH EVERY DAY 100 capsule 3 [DISCONTINUED] hydrALAZINE (Apresoline) 50 MG tablet TAKE 1 TABLET BY MOUTH TWICE A DAY WITH FOOD FOR 30 DAYS [DISCONTINUED] UNABLE TO FIND HANDICAP PLACARD No current facility-administered medications on file prior to visit. I have reviewed and reconciled the history and medication list with the patient today. Allergies Allergen Reactions Trimethoprim Shortness of breath Ciprofloxacin Other Reaction(s): Unknown Sulfa Antibiotics Social History Tobacco Use Smoking status: Former Types: Cigarettes Start date: 08/2017 Quit date: 1967 Years since quittin.5 Smokeless tobacco: Never Vaping Use Vaping status: Never Used Substance Use Topics Alcohol use: Never Comment: caffeine: 1-2 cups per day Drug use: Never Family History Problem Relation Name Age of Onset Hypertension Mother Stroke Mother Cancer Father Cancer Sibling Stroke Sibling Other (hearing deficiency) Other Past Medical History: Diagnosis Date COPD (chronic obstructive pulmonary disease) (HCC) H/O splenectomy Hypertension Parkinson disease (HCC) Recurrent UTI Ruptured spleen Past Surgical History: Procedure Laterality Date ORIF WRIST FRACTURE Right 08/12/2024 DAP SPLENECTOMY, TOTAL Visit Vitals BP 136/78 Pulse 84 Ht 5' 5 Wt 97 lb SpO2 95% BMI 16.14 kg/m Smoking Status Former BSA 1.42 m Review of Systems Constitutional: Positive for fatigue and unexpected weight change (Loss). Negative for appetite change, chills and fever. Respiratory: Negative for cough, shortness of breath and wheezing. Cardiovascular: Positive for leg swelling. Negative for chest pain and palpitations. Gastrointestinal: Negative for abdominal pain, constipation, diarrhea, nausea and vomiting. Skin: Negative for rash. Objective Physical Exam Constitutional: General: She is not in acute distress. Appearance: She is well-developed. Comments: Thin appearing HENT: Head: Normocephalic and atraumatic. Eyes: General: No scleral icterus. Conjunctiva/sclera: Conjunctivae normal. Cardiovascular: Rate and Rhythm: Normal rate and regular rhythm. Heart sounds: Normal heart sounds. No murmur heard. Pulmonary: Effort: Pulmonary effort is normal. No respiratory distress. Breath sounds: Normal breath sounds. No wheezing, rhonchi or rales. Musculoskeletal: Right lower le+ Edema present. Left lower le+ Edema present. Skin: General: Skin is warm and dry. Neurological: General: No focal deficit present. Mental Status: She is alert and oriented to person, place, and time. Motor: Tremor and atrophy present. Gait: Gait abnormal. Psychiatric: Mood and Affect: Mood normal. Behavior: Behavior normal. Assessment/Plan Diagnoses and all orders for this visit: Abnormal weight loss Her appetite is ok, but continue to have trouble gaining weight. Encouraged her to drink a meal supplement with every meal. Stage 3b chronic kidney disease ([facility]) Advised of caution regarding diuretic use in kidney disease. She no longer follows with nephrology. Encouraged pt to stay hydrated. Parkinson's disease, unspecified whether dyskinesia present, unspecified whether manifestations fluctuate ([facility]) The patient is seeing a medical review coordinator for this condition, treatment is deferred to that specialist. Correspondence from that specialist and any available testing were reviewed during today's visit. Primary hypertension Encouraged patient to schedule an appointment with Dr. Viera for follow up s/p recent ER visit. Her BP is much improved today. Continue Hydralazine and Diltiazem as prescribed. Hemiplegia, unspecified affecting right dominant side (HCC) Pt with abnormal gait, walks with assistance. Bilateral lower extremity edema Encouraged uses of compression stockings on in am and off in pm. They do help her when worn. Reviewed importance of regular use to support the circulation in the legs. The patient was seen today in follow up of recent hospital ER visit. All available hospital records/labs/diagnostics were reviewed and discussed with the patient. ER discharge meds were reviewed. Any changes to plan are as noted. Follow up for Appointment As Scheduled. documented in this encounter [facility] 12-24-2024 Telephone encounter Note Pt resumtion of care has been completed in home and they will be caring for her for about a month and then go from there on the following steps. [facility] 12-24-2024 Miscellaneous Notes Pt resumtion of care has been completed in home and they will be caring for her for about a month and then go from there on the following steps. documented in this encounter [facility] 12-17-2024 Hospital Discharg e instructions Ambulatory OrdersInitiate Home Health Time Frame: 12/17/24, Location: Determined By Patient Additional Instructions HOME HEALTH TO MANAGE: Nursing/PT/OT/Aide and warehouse insulation worker to eval and treat Monitor VS per protocol--HTN Monitor Neuro. assessment--Encephalopathy, Parkinson disease Monitor Cardiac assessment--Elevated troponin Dressing change every 3 days--Mepilex border foam to Coccyx for added protection Assist with medication management and provide medication education Provide education on high risk fall precautions [facility] Work Phone: 12-15-2024 Radiology Diagnostic study note [facility] Main [place] [address] [place] [address] CT Scan Report Signed Patient: Judith Land MR#: [id number] : 1945 Acct:[id number] Age/Sex: 79 / F ADM Date: 5 Loc: ER Room: Type: [facility] ER Attending Dr: Copies to: Jen Downing MD~ Ordering Provider: Jen Downing MD Date of Service: 12/15/24 CT/CT head/brain wo con: ams, worse than baseline Unenhanced head CT TECHNIQUE: Contiguous axial imaging of the head. The CT exam was performed usingone or more the following dose reduction techniques: Automated exposure control,adjustment of the MA and/or Kv according to patient size, or use of the iterative reconstruction technique. COMPARISON: 12/14/2024 HISTORY: Tremors. Confusion. VENTRICLES: Within normal limits ATROPHY: Similar atrophy BRAIN PARENCHYMA: Decreased density of the white matter is most consistent withchronic small vessel disease. HEMORRHAGE: None HERNIATION: No mass effect or herniation INFARCTION: No recent vascular distribution infarction is seen. EXTRA-AXIAL FLUID COLLECTIONS None MIDBRAIN: Unremarkable MADDY: Unremarkable MEDULLA: Unremarkable SINUSES: Unremarkable ORBITS: Grossly unremarkable MASTOIDS: Unremarkable BONY STRUCTURES Intact ADDITIONAL FINDINGS: CT/CT head/brain wo con IMPRESSION: No acute findings. Impression dictated by: Andrew Henson M.D. 12/15/2024 1:03 PM Dictation Location: [place] [address] Transcribed By: [facility] 12/15/24 1303 Dictated By: Andrew Henson DO 12/15/24 1302 Signed By: 12/15/24 1303 [facility] 12-14-2024 Radiology Diagnostic study note [facility] Main [place] [address] [place] [address] CT Scan Report Signed Patient: Judith Land MR#: [id number] : 1945 Acct:[id number] Age/Sex: 79 / F ADM Date: 5 Loc: ER Room: Type: [facility] ER Attending Dr: Copies to: Damaso Charlton DO~ Ordering Provider: Damaso Charlton DO Date of Service: 12/14/24 CT/CT cervical spine wo con: head inj ([id number]) CT/CT head/brain wo con: head inj Unenhanced head CT TECHNIQUE: Contiguous axial imaging of the head. The CT exam was performed usingone or more the following dose reduction techniques: Automated exposure control,adjustment of the MA and/or Kv according to patient size, or use of the iterative reconstruction technique. COMPARISON: 10/29/2024 HISTORY: Fell yesterday. Altered mental status. VENTRICLES: Within normal limits ATROPHY: Similar atrophy BRAIN PARENCHYMA: Decreased density of the white matter is most consistent withchronic small vessel disease. HEMORRHAGE: None HERNIATION: No mass effect or herniation INFARCTION: No recent vascular distribution infarction is seen. EXTRA-AXIAL FLUID COLLECTIONS None MIDBRAIN: Unremarkable MADDY: Unremarkable MEDULLA: Unremarkable SINUSES: Unremarkable ORBITS: Grossly unremarkable MASTOIDS: Unremarkable BONY STRUCTURES Intact ADDITIONAL FINDINGS: CT/CT head/brain wo con IMPRESSION: No acute findings. CT Cervical Spine withoutcontrast TECHNIQUE: Axial imaging with 2-D and 3-D reconstruction. The CT exam was performed using one or more the following dose reduction techniques: Automated exposure control, adjustment of the MA and/or Kv according to patient size, or use of the iterative reconstruction technique. COMPARISON: None POST SURGERY CHANGES: None BONY ALIGNMENT: Reversal BONY SPINAL CANAL: Patent central bony canal FRACTURE: None BONY LESIONS: None SOFT TISSUES: Unremarkable DEGENERATIVE CHANGES: Moderate degeneration LUNG APICES: Unremarkable ADDITIONAL FINDINGS: IMPRESSION: No acute process Impression dictated by: Andrew Henson M.D. 12/14/2024 9:47 AM Dictation Location: [facility] Transcribed By: [facility] 12/14/24946 Dictated By: Andrew Henson DO 12/14/2442 Signed By: 12/14/2447 [facility] 11-27-2024 Telephone encounter Note Patient was told to call back with some information they were unsure about at their appt yesterday. The medication Hydralazine she takes 50 mg 2x a day The medication cardizem is 180mg 1x a day. The lisinopril she is no longer taking and needs that off of her medication list. She will need a refill on the hydralazine, cardizem, and alprazalam sent to [facility] in [place]. [facility] 11-27-2024 Miscellaneous Notes Patient was told to call back with some information they were unsure about at their appt yesterday. The medication Hydralazine she takes 50 mg 2x a day The medication cardizem is 180mg 1x a day. The lisinopril she is no longer taking and needs that off of her medication list. She will need a refill on the hydralazine, cardizem, and alprazalam sent to [facility] in [place]. documented in this encounter [facility] 10-28-2024 Evaluation note Diagnosis Onset Date Resolution Acute delirium acute October 28, 2024 2:46pm Acute hypoxic respiratory failure acute October 28 2:46pm Acute kidney failure acute October 28, 2024 2:46pm Aspiration pneumonia acute October 28, 2024 2:46pm Cachexia acute October 28, 2024 2:46pm COPD (chronic obstructive pulmonary disease) acute October 28, 2024 2:46pm Encephalopathy acute October 28, 2024 2:46pm Hypernatremia acute October 28, 2 025 2:46pm Metabolic encephalopathy acute October 28, 2024 2:46pm Muscle wasting acute October 28, 2024 2:46pm Sleep-wake cycle disorder acute October 28, 2024 2:46pm [facility] Work Phone: 1(539) 471-113705-20-2025 Evaluation note* Diagnosis Onset Date Resolution Status Admit Date Acute delirium acute October 28, 2024 2:46pm Acute hypoxic respiratory failure ac rossy October 28, 2024 2:46pm Acute kidney failure acute October 28, 2024 2:46pm Aspiration pneumonia acute October 28, 2024 2:46pm Cachexia acute October 28, 2024 2:46pm COPD (chronic obstructive pulmonary disease) acute October 28 2:46pm Encephalopathy acute October 28, 2024 2:46pm Hypernatremia acute October 28, 2 025 2:46pm Metabolic encephalopathy acute October 28, 2024 2:46pm Muscle wasting acute October 28, 2024 2:46pm Sleep-wake cycle disorder acute October 28, 2024 2:46pm Acute confusion acute December 15, 2024 1:57pm Hypertensive emergency acute Ju 2024 1:57pm [facility] Work Phone: 1(360) 669-777805-20-2025 Evaluation note* Diagnosis Onset Date Resolution Status Admit Date Acute delirium acute October 28, 2024 2:46pm Acute hypoxic respiratory failure ac rossy October 28, 2024 2:46pm Acute kidney failure acute October 28, 2024 2:46pm Aspiration pneumonia acute October 28, 2024 2:46pm Cachexia acute October 28, 2024 2:46pm COPD (chronic obstructive pulmonary disease) acute October 28 2:46pm Encephalopathy acute October 28, 2024 2:46pm Hypernatremia acute October 28, 2 025 2:46pm Metabolic encephalopathy acute October 28, 2024 2:46pm Muscle wasting acute October 28, 2024 2:46pm Sleep-wake cycle disorder acute October 28, 2024 2:46pm Acute confusion acute December 15, 2024 1:57pm Acute kidney failure acute December 15, 2024 1:57pm Delirium acute December 15, 2024 1:57pm Elevated troponin level not due to acute coronary syndrome acute December 1:57pm Hypertensive emergency acute ly 2024 1:57pm Parkinson disease acute December 1:57pm Visual hallucinations acute Dec 1:57pm [facility] Work Phone: 1(698) 905-845205-20-2025 Evaluation note* Diagnosis Onset Date Resolution Status Admit Date Acute delirium acute October 28, 2024 2:46pm Acute hypoxic respiratory failure acute October 28, 2024 2 :46pm Aspiration pneumonia acute October 28, 2024 2:46pm Cachexia acute October 28, 2024 2:46pm COPD (chronic obstructive pulmonary disease) acute October 28 2:46pm Encephalopathy acute October 28, 2024 2:46pm Hypernatremia acute October 28, 2:46pm Metabolic encephalopathy acute October 28, 2024 2:46pm Muscle wasting acute October 28, 2024 2:46pm Sleep-wake cycle disorder acute October 28, 2024 2:46pm Acute kidney failure resolved October 28, 2024 2:46pm Acute confusion resolved December 15, 2024 1:57pm Acute kidney failure resolved December 15, 2024 1:57pm Delirium resolved December 15, 2024 1:57pm Elevated troponin level not due to acute coronary syndrome resolved December 15, 2024 1:57pm Hypertensive emergency resolved Ju 2024 1:57pm Visual hallucinations resolved Dec 1:57pm Parkinson disease inactive December 1:57pm Metabolic encephalopathy acute January 29, 2025 9:50am Parkinsons disease acute January 29, 2025 9:50am [facility] Work Phone: 1(111) 311-852504-23-2025 History of Present illness Narrative* Daniela Fuentesoney - 10/01/2024 9:45 AM EDT Images from the original note were not included. Judith Land is a 79 y.o. female presents with chief complaint of right wrist open reduction andinternal fixation with left superior pubic rami fracture. [...] Not at risk (11/27/2023) Received from [facility] PHQ-2 Patient Health Questionnaire-2 Score: 0 REVIEW [...] without a lot of difficulty. She has nopain with axial compression on either side. The [...] walker. We did encourage her granddaughter to definethis with Jannette Ornelas. They also describe that she was given a bariatric walker. This lady is very thin and petite in stature, that is an appropriate device. They will also confer with Jannette on this. Her return here with myself is as described. Cosigned by Supa Owen DO at 10/06/2024 7:10 AM EDT documented in this encounterSSM [id number] Telephone encounter Note* Telephone Encounter - Kimmy Jaramillo RN - 09/24/2024 12:38 PM EDT ORIF R wrist 08/12/24,Fx pubic rami 09/02/24, JIMI 09/10/24 Patricia Unsworth. Would like refill pain Percocet, only has a couple left. She is using them at night, and the pain in her pelvis is bothering her to the point where I do not know that the Tylenol andIbuprofen Are really touching that pain. [id number] Miscellaneous Notes* Telephone Encounter - Kimmy Jaramillo RN - 09/24/2024 12:38 PM EDT ORIF R wrist 08/12/24,Fx pubic rami 09/02/24, JIMI 09/10/24 Patricia Unsworth. Would like refill pain Percocet, only has a couple left. She is using them at night, and the pain in her pelvis is bothering her to the point where I do not know that the Tylenol andIbuprofen Are really touching that pain. documented in this [facility]04-09-2025 History of Present illness Narrative* Shaun Jackson NP - 09/17/2024 4:00 PM EDT Images from the original note were not included. Chief Complaint Patient presents with Parkinson's Disease Stroke Subjective Judith Land is a 79 y.o. female. History of Present Illness The patient presents today for follow-up. She is accompanied by her daughter, Patricia. She continuesto take her antiparkinson medications as prescribed. She is taking Sinemet CR 25-100 mg 3 times a day, rasagiline 1 mg daily, and amantadine 100 mg twice a day. These have been helpful for her symptoms. She states her tremors and movement have greatly improved with the current medication regimen. Some days are better than others. She follows with [facility] neurology in addition to our office. The patient is right-hand dominant. She has an intermittent upper extremity tremor which is fairly well controlled recently. She denies dyskinesias or freezing episodes. She denies difficulty standing up from chairs or her bed. She denies shuffling gait. Her daughter states she only has this, at times, in the middle of the night. She denies drooling or swallowing difficulty. Daughter states the patient was hospitalized at [facility] in August 2024 for urinary tract infection. She was not evaluated by neurology while inpatient. She did have a fall during her hospitalization on 08/21/2024 which resulted in the pubic bone fracture. She is following with Dr. Owen (orthopedic surgery) for management. She reports having some mild balance difficulty due to the fracture. Also reports some slownessof movement which she attributes to the fracture. She denies muscle stiffness, dream enactment behavior, or hallucinations. She is currently in physical therapy and occupational therapy via Home Health. Her restless leg symptoms are well controlled on ropinirole. She is taking 0.25 mg daily at bedtime. They deny any further new concerns. Review of Systems Constitutional: Negative for appetite change, chills, fatigue, fever and unexpected weight change. HENT: Negative for trouble swallowing and voice change. Eyes: Negative for visual change, double vision or loss of vision Respiratory: Negative for cough, shortness of breath and wheezing. Cardiovascular: Negative for chest pain and palpitations. Gastrointestinal: Negative for nausea and vomiting. Musculoskeletal: Positive for arthralgias, back pain and gait problem. Negative for myalgias. Neurological: Positive for tremors. Negative for dizziness, seizures, syncope, facial asymmetry, speech difficulty, weakness, light-headedness, numbness and headaches. Positive for slowness of movement Psychiatric/Behavioral: Negative for confusion, hallucinations and suicidal ideas. The patient is not nervous/anxious. Past Medical History: Diagnosis Date COPD (chronic obstructive pulmonary disease) ([facility]) H/O splenectomy Hypertension (CMS/HCC) Parkinson disease (CMS/HCC) Recurrent UTI Ruptured spleen Past Surgical History: Procedure Laterality Date ORIF WRIST FRACTURE Right 08/12/2024 DAP SPLENECTOMY, TOTAL Family History Problem Relation Name Age of Onset Hypertension Mother Stroke Mother Cancer Father Other (hearing deficiency) Other Cancer Sibling Stroke Sibling Social History Tobacco Use Smoking status: Never Smokeless tobacco: Never Substance Use Topics Alcohol use: Never Comment: caffeine: 1-2 cups per day Allergies: Trimethoprim and Sulfa antibiotics Vitals: 09/17/24 1543 BP: 158/90 Body mass index is 17.97 kg/m . Neurologic exam: Mental status and general appearance: Awake and alert with unlabored respirations. Oriented to person, place, and time. Recent and remotememory are intact. Speech is clear and fluent without aphasia. Speech is non-dysarthric. Attention and concentration are normal. Fund of knowledge is appropriate for level of education. Thin. Pleasant. Cranial nerves: CN II: Visual acuity is normal. Visual calderon full to confrontation. CN III, IV, : Pupils are equal, round, and reactive to light. Extraocular movements intact. No ptosis present. CN V: Facial sensation is normal. CN VII: Full and symmetric facial movement. CN VIII: Hearing is normal to finger rub bilaterally. CN IX and X: Palate elevates symmetrically. CN XI: Shoulder shrug is normal bilaterally. CN XII: Tongue is midline without atrophy or fasciculation. 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 RLE strength iliopsoas, quadriceps, tibialis anterior, and plantar flexion strength 5/5. LLE strength iliopsoas strength 4/5 due to giveway weakness. Quadriceps, tibialis anterior, and plantar flexion strength 5/5. Minimal rigidity of the bilateral upper extremities with activation. No tremor or dyskinesias observed. Sensory: Sensation is intact to light touch throughout all four extremities. Reflexes: RUE biceps reflex 2+ , brachioradialis reflex 2+. LUE biceps reflex 2+ , brachioradialis reflex 2+. RLE knee reflex 2+. LLE knee reflex 2+. Coordination: Iwuwpz-dv-buds testing normal. Rapid alternating movements minimal bradykinesia with finger tapping and pronation/supination of the bilateral hands. Gait: Not assessed, as the patient presents in a wheelchair today. Recent pubic bone fx reported by family. Review and summary of old records: Carotid US on 05/03/24: No hemodynamically significant stenosis. 1-29% stenosis right and left ICA.Focal areas of calcific plaque mid-dist left CCA extending into prox left ICA. Lipid panel on 05/01/24: LDL 74, cholesterol 180, triglycerides 99, HDL 87 Cardio note (Dr. Joe Luke) on 12/20/23: Abnormal stress test with EKG changes but no perfusion defects as per report. No cardiac complaints. COPD, hypertension, hyperlipidemia. Again discussed invasive ischemic evaluation with patient. Patient understands risks and declined evaluation. Continue aspirin, statin, beta-ayo. Follow-up in 3 months MRI of the brain with and without contrast at [facility] on 08/14/2023: No acute intracranial abnormality. No [...] and mild right foraminal narrowing at L3-L4. CT of the head/brain without contrast on 06/23/23: No acute intracranial changes. EKG on 06/23/23: Possible [...] cholesterol 194, HDL 89, LDL 91, ratio 2.2. MRI of the brain with and without contrast at [facility], on 05/15/23: no acute intracranial pathology or [...] whether dyskinesia present, unspecified whether manifestations fluctuate (CMS/[facility]) Ms. Land is a 79-year-old female with a history of Parkinson's disease initially diagnosed in 2014. She has cardinal features of rest tremor on the right, rigidity, and bradykinesia. She reports arecent pelvic fracture in August 2024 which has affected her gait. She is following with orthopedic surgery for this. The patient believes her Parkinson's symptoms are well controlled on the current regimen. She has some functional disability related to her pelvic fracture but otherwise reports doing fairly well. She previously experienced dyskinesias, but these have seemingly resolved since transition from Sinemet IR to Sinemet CR and increase in amantadine. She is following with [facility] neurology in addition to our office to help manage her Parkinson's. PLAN: - Follow up closely with [facility] neurology to assist with management of Parkinson's disease (the patient prefers to follow in our office locally and at [facility]) - Continue Sinemet 25-100 mg CR tablet - take 1 tablet by mouth 3 times a day - Continue rasagiline 1 mg by mouth daily - Continue amantadine 100 mg twice a day - Continue Home Health physical therapy and occupational therapy - Continue speech therapy exercises - I encouraged regular physical activity as tolerated (not to exceed any restrictions currently in place by ortho) - Fall prevention measures discussed Dyskinesias See above. No dyskinesias are observed on clinical exam today. RLS (restless legs syndrome) The patient has a diagnosis of RLS. Ferritin level on 10/09/2022 was 68 (ordered by PCP). Symptoms are well managed on ropinirole per patient report. PLAN: - Continue ropinirole 0.25 mg by mouth daily at bedtime Cerebral infarction, chronic CT of the head/brain in 2021 revealed old lacunar infarctions in right basal ganglia and some age-related ischemic changes. The patient has been maintained on aspirin 81 mg daily since this and was previously evaluated by cardiology. Repeat imaging with brain MRI on 05/15/2023 identified a remote infarct in the left cerebellar hemisphere and remote lacunar infarcts in the bilateral putamen. Giventhe bilateral nature of the infarcts, there is concern for a cardioembolic cause in relation to this. Small vessel risk factors also a consideration (history of CAD, hypertension, and hyperlipidemia). LDL in April 2024 was 74. Hemoglobin A1c on 09/13/2023 was 5.2%. ECHO was unremarkable. Carotidultrasound demonstrated no hemodynamically significant stenosis. PLAN: - Continue aspirin 81 mg by mouth once a day - Continue statin (management per primary care provider; goal LDL < 70) - Healthy diet - Avoid tobacco use and limit alcohol intake - Follow up closely with primary care provider for management of cerebrovascular risk factors to help reduce the risk of future stroke - I counseled the patient on signs and symptoms of stroke and educated the patient to seek emergentcare in the emergency department if she develops any of these in the future. She verbalizes understanding -The patient is reportedly following with cardiology for the above concerns (Dr. Joe Luke). 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 She admits to previous use of a cock up splint which has been intermittently beneficial. RUE EMG on 03/29/2023 was normal. PLAN: - Okay to continue cock-up wrist splint if helpful for symptoms Other chronic pain The patient reports diffuse and chronic pain of the bilateral arms, legs, and back in no single dermatomal distribution. PLAN: - Continue follow up with pain management Diagnosis and treatment options discussed in detail. All questions answered. The patient verbalizesunderstanding and is agreeable to the plan. Discussion in layman's terms. Follow up in the office within 1 year; sooner if needed for new or worsening symptoms. THE PATIENT REPORTS FOLLOWING WITH [facility] NEUROLOGY MORE FREQUENTLY (NEXT IN JANUARY 2025) AND STATES SHE WILL CHECKIN WITH OUR OFFICE LOCALLY IN 1 YEAR. Shaun Jackson NP [facility] documented in this encounterSSM [id number] History of Present illness Narrative* Jen Doyle MA - 09/10/2024 2:30 PM EDT Patient will require the use of a front wheeled walker for ADLs and safety both within the home andfor community distances. Patient requires the use of the walker to decrease fall risk and improve safety. * Daniela David - 09/10/2024 2:30 PM EDT Images from the original note were not [...] Not at risk (11/27/2023) Received from [facility] PHQ-2 Patient Health Questionnaire-2 Score: 0 REVIEW OF SYMPTOMS: The review of systems, history and current medications list are all reviewed today. OBJECTIVE: Visit Vitals Ht 5' 5 Wt 108 lb BMI 17.97 kg/m Smoking Status Never BSA 1.5 m Physical Exam Her orthopedic exam reveals general deconditioning. She has no deformity at the levelof the wrist. No ecchymosis. Swelling is down. [...] cost effective. A right L3908 Wrist Hand Orthosis,Wrist Extension Control Cock-Up, non-molded, prefabricated, off the [...] supplier standards were given to the patient. [employer] patient agreement was completed at time of dispensement. The patient stated that the device was comfortable when fitted in the office. Atthe time of dispensement, the device was suitable [...] has had multiple falls. This would allow lutheran of ambulation in a safe manner while protecting the wrist fracture and open reduction and internal fixation. The length of time needed for this would likely be approximately a three month course overall. [place] voice understanding of this. We will see her back in three weeks for x-ray and recheck of bothareas once again. They will call or return should she have any escalating pain or difficulty to speak of whatsoever. All questions are otherwise answered at length. We did explain to the patient and her granddaughter that all of this information will be in the medical record through [employer] for thepatient's multiple family members to view at their discretion with the patient's consent. All questions are again answered. Follow up letter sent to Dr. Sams. Cosigned by Supa Owen DO at 09/12/2024 12:33 PM EDT documented in this encounterSSM [id number] Discharge summary Author Didi Navarro [facility] Note Date/Time September 05, 2024 1:0 1pm [facility] [address] [place] [address] Discharge Summary Signed Patient: Judith Land MR#: [id number] : 1945 Acct:[id number] Age/Sex: 79 / F Adm Date: 5 Loc: Room: [address] [place] [address]: Pa Neil MD Copies to: [...] to Orthopedic Surgery Routine Comment: Consulting Provider: [facility] Orthopedics Reason For Exam: L inferior and [...] mobility. Patient will be discharged home with [facility] home health services. No additional DME is needed [...] Pa Neil Follow Up: [facility] [Outside] (Call to schedule follow up appointment [...] Continuity of Care Document Health Concerns: A [facility] screening has identified you as FRAIL or [...] Strong: Four Ways to Beat the Frailty [email or web address]/health/yyjntfiz-xje-uewwfolrqd/qbwu-vkyfui-q our-w xhs-tu-ushr-the -frailty-risk Exam Physical Exam Vital Signs: Temp [...] Documented By: Didi Navarro APRN 09/05/24 1 245 Signed By: <Electronically signed by MIGUEL Navarro> 09/05/24 1253 <Electronically signed by Ramsey Monroe MD> 09/05/24 1301 [facility] Work Phone: 1(205) 113-546703-28-2025 [place]charge [place] [id number] Discharge Summary Signed Patient: Judith Land MR#: [id number] : 1945 Acct:[id number] Age/Sex: 79 / F Adm Date: 5 Loc: Room: 3T7269-[address]: Pa Neil MD Copies to: [...] Patient will be discharged home with [facility] health services. No additional DME is needed atdischarge. [...] Pa Neil Follow Up: [facility] [Outside] (Call to schedule follow up appointment [...] Continuity of Care Document Health Concerns: A [facility] screening has identified you as FRAIL or [...] Stay Strong:Four Ways to Beat the Frailty [email or web address]/health/cuklwldn-suq-mskskuwbyr/sta p-pgnrbo-tsgx-jmrv-kv-gjzz-the -frailty-risk Exam Physical Exam Vital Signs: Temp [...] Documented By: Didi Navarro APRN 09/05/24 1 245 Signed By: 09/05/24 1253 09/05/24 1301 [facility]03-28-2025 Progress note Author Pa Neil [facility] Note Date/Time September 05, 2024 10: 11am [facility] [address] [place] [address] Physiatry(Rehab) Progress Note Signed Patient: Judith Land MR#: [id number] : 1945 Acct:[id number] Age/Sex: 79 / F Adm Date: 5 Loc: 5T Room: [address] [place] [address] Type: ADM IN Attending Dr: Pa Neil [...] mg 08/25/24 15:48 Bisacodyl 10 Mg Supp.Rect SD 08/25/25 15:47 DAILY PRN Constipation Carbidopa/Levodopa 1 tab 09/01/24 12:00 09/05/24 06:44 Carbidopa/Levodopa 10-100 Mg 1 Tab Tablet PO 09/01/25 11:59 1 tab TID@0700,1200,1700 LLOYD Administration Docusate Sodium 100 mg 08/25/24 15:48 09/03/24 21:30 Docusate 100 Mg Capsule PO 08/25/25 15:47 100 mg BID PRN Administration Constipation Docusate Sodium 283 mg 08/25/24 15:48 Docusate Enema 283 Mg/5 Ml Enema SD 08/25/25 15:47 DAILY PRN Constipation Heparin Sodium [...] female who presents to [facility] IRF due to multifactorial functional decline in the setting of acute UTI with metabolic encephalopathy in the setting of Parkinsons Disease. She has continued impaired mobility and impaired independence with ADLs and IADLs requiring PT/OT/COOKER MECHANIC 5-7 days/week 3 hours/day to maximize safety [...] equipment to enhance the patient's a functional lutheran -Encourage deep breathing exercises and incentive spirometry -RD evaluation -Ensure adequate nutrition and hydration -Discharge planning. #. UPDATES -Overall improving. -Conservative treatment for pubic ramus fracture with continued range of motion and weightbearing as tolerated. Follow-up in outpatient settings in about 4 weeks. -NWB RUE per patients orthopedic surgeon -Completed [...] I spent 27 minutes for services, including nlks-fx-mgmz encounter with the patient, discussion of the case, plan of care, and exam; and ppbugxh-ey-uvah activities, such as reviewing pertinent apple solutions consultant documentation, recent therapynotes, laboratory and radiology studies, and discussion of case with care team including physician, nursing, casework supervisor, and therapists. More than 50 % of time was spent on patient/family counseling or coordination ofcare. Documented By: Pa Neil MD 1009 Signed By: <Electronically signed by Pa Neil MD> 09/05/24 1011 [facility] Work Phone: 1(447) 452-323603-28-2025 Progress note Author Didi Navarro [facility] Note Date/Time September 05, 2024 10: 09am [facility] [address] [place] [address] Physiatry(Rehab) Progress Note Signed Patient: Judith Land MR#: [id number] : 1945 Acct:[id number] Age/Sex: 79 / F Adm Date: 5 Loc: Room: [address] [place] [address] Type: ADM IN Attending Dr: Pa Neil [...] mg 08/25/24 15:48 Bisacodyl 10 Mg Supp.Rect SD 08/25/25 15:47 DAILY PRN Constipation Carbidopa/Levodopa 1 tab 09/01/24 12:00 09/03/24 06:22 Carbidopa/Levodopa 10-100 Mg 1 Tab Tablet PO 09/01/25 11:59 1 tab TID@0700,1200,1700 LLOYD Administration Docusate Sodium 100 mg 08/25/24 15:48 09/03/24 06:22 Docusate 100 Mg Capsule PO 08/25/25 15:47 100 mg BID PRN Administration Constipation Docusate Sodium 283 mg 08/25/24 15:48 Docusate Enema 283 Mg/5 Ml Enema SD 08/25/25 15:47 DAILY PRN Constipation Heparin Sodium [...] 50 mg DAILY LLOYD Administration Assessment/Plan <Didi Navarro APRN - Last Filed: 09/03/24 12:38> Assessment/Plan (1) Parkinsons disease: Qualifiers: Dyskinesia presence: without dyskinesia Fluctuating manifestations: without fluctuating manifestations Qualified Code(s): G20.A1 - Parkinson's disease without dyskinesia, without mention of fluctuations (2) Metabolic encephalopathy: (3) Acute UTI: (4) HTN (hypertension): (5) Anxiety: (6) Impaired mobility and activities of daily living: Plan This is a 79-year-old female who presents to [facility] IRF due to multifactorial functional decline in the setting of acute UTI with metabolic encephalopathy in the setting of Parkinsons Disease. She has continued impaired mobility and impaired independence with ADLs and IADLs requiring PT/OT/COOKER MECHANIC 5-7 days/week 3 hours/day to maximize safety [...] equipment to enhance the patient's a functional lutheran -Encourage deep breathing exercises and incentive spirometry [...] I spent 17 minutes for services, including cgqm-va-ocvw encounter with the patient, discussion of the case, plan of care, and exam; and mbqokoi-rt-tmjp activities, such as reviewing pertinent apple solutions consultant documentation, recent therapynotes, laboratory and radiology studies, and discussion of case with care team including physician, nursing, casework supervisor, and therapists. More than 50 % of time was spent on patient/family counseling or coordination ofcare. <Pa Neil MD - Last Filed: 09/05/24 10:09> Assessment/Plan (1) Parkinsons disease: (2) Metabolic encephalopathy: (3) Acute UTI: (4) HTN (hypertension): (5) Anxiety: (6) Impaired mobility and activities of daily living: Plan This is a 79-year-old female who presents to [facility] IRF due to multifactorial functional decline in the setting of acute UTI with metabolic encephalopathy in the setting of Parkinsons Disease. She has continued impaired mobility and impaired independence with ADLs and IADLs requiring PT/OT/COOKER MECHANIC 5-7 days/week 3 hours/day to maximize safety [...] equipment to enhance the patient's a functional lutheran -Encourage deep breathing exercises and incentive spirometry [...] I spent 17 minutes for services, including qrjx-ru-wtuv encounter with the patient, discussion of the case, plan of care, and exam; and qthwgqp-ju-ypbd activities, such as reviewing pertinent apple solutions consultant documentation, recent therapynotes, laboratory and radiology studies, and discussion of case with care team including physician, nursing, casework supervisor, and therapists. More than 50 % of [...] <Electronically signed by Pa Neil MD> 09/05/24 1005 [facility] Work Phone: 1(366) 505-601503-28-2025 [place] [address] Physiatry(Rehab) Progress Note Signed Patient: Judith Land MR#: [id number] : 1945 Acct:[id number] Age/Sex: 79 / F Adm Date: 5 Loc: Room: 6D8436-9 Type: ADM IN Attending Dr: Pa Neil [...] mg 08/25/24 15:48 Bisacodyl 10 Mg Supp.Rect SD 08/25/25 15:47 DAILY PRN Constipation Carbidopa/Levodopa 1 tab 09/01/24 12:00 09/05/24 06:44 Carbidopa/Levodopa 10-100 Mg 1 Tab Tablet PO 09/01/25 11:59 1 tab TID@0700,1200,1700 LLOYD Administration Docusate Sodium 100 mg 08/25/24 15:48 09/03/24 21:30 Docusate 100 Mg Capsule PO 08/25/25 15:47 100 mg BID PRN Administration Constipation Docusate Sodium 283 mg 08/25/24 15:48 Docusate Enema 283 Mg/5 Ml Enema SD 08/25/25 15:47 DAILY PRN Constipation Heparin Sodium [...] female who presents to [facility] IRF due to multifactorial functional decline in the setting of acute UTI with metabolic encephalopathy in the setting ofParkinsons Disease. She has continued impaired mobility and impaired independence with ADLs and IADLs requiring PT/OT/COOKER MECHANIC 5-7 days/week 3 hours/day to maximize safety [...] equipment to enhance the patient's a functional lutheran -Encourage deep breathing exercises and incentive spirometry -RD evaluation -Ensure adequate nutrition and hydration -Discharge planning. #. UPDATES -Overall improving. -Conservative treatment for pubic ramus fracture with continued range of motion and weightbearing as tolerated. Follow-up in outpatient settings in about 4 weeks. -NWB RUE per patients orthopedic surgeon -Completed [...] I spent 27 minutes for services, including rvas-aq-hurg encounter with the patient, discussion of the case, plan of care, and exam; and wdtnhsw-sb-qoie activities, such as reviewing pertinent apple solutions consultant documentation, recent therapynotes, laboratory and radiology studies, and discussion of case with care team including physician, nursing, casework supervisor, and therapists. More than 50 % of time was spent on patient/family counseling or coordination ofcare. Documented By: Pa Neil MD 1009 Signed By: 09/05/24 1011 [facility]03-28-2025 [place] [address] Physiatry(Rehab) Progress Note Signed Patient: Judith Land MR#: [id number] : 1945 Acct:[id number] Age/Sex: 79 / F Adm Date: 5 Loc: Room: 8X8859-9 Type: ADM IN Attending Dr: Pa Neil [...] mg 08/25/24 15:48 Bisacodyl 10 Mg Supp.Rect SD 08/25/25 15:47 DAILY PRN Constipation Carbidopa/Levodopa 1 tab 09/01/24 12:00 09/03/24 06:22 Carbidopa/Levodopa 10-100 Mg 1 Tab Tablet PO 09/01/25 11:59 1 tab TID@0700,1200,1700 LLOYD Administration Docusate Sodium 100 mg 08/25/24 15:48 09/03/24 06:22 Docusate 100 Mg Capsule PO 08/25/25 15:47 100 mg BID PRN Administration Constipation Docusate Sodium 283 mg 08/25/24 15:48 Docusate Enema 283 Mg/5 Ml Enema SD 08/25/25 15:47 DAILY PRN Constipation Heparin Sodium [...] Tablet PO 08/26/25 08:59 1 mg DAILY LOLYD Administration Ropinirole HCl 0.25 mg 08/25/24 22:00 [...] is a 79-year-old female who presents to [facility] IRF due to multifactorial functional decline in the setting of acute UTI with metabolic encephalopathy in the setting ofParkinsons Disease. She has continued impaired mobility and impaired independence with ADLs and IADLs requiring PT/OT/COOKER MECHANIC 5-7 days/week 3 hours/day to maximize safety [...] equipment to enhance the patient's a functional lutheran -Encourage deep breathing exercises and incentive spirometry [...] I spent 17 minutes for services, including adkx-xt-bbpx encounter with the patient, discussion of the case, plan of care, and exam; and gzjavcs-bn-cigs activities, such as reviewing pertinent apple solutions consultant documentation, recent therapynotes, laboratory and radiology studies, and discussion of case with care team including physician, nursing, casework supervisor, and therapists. More than 50 % of time was spent on patient/family counseling or coordination ofcare. Assessment/Plan (1) Parkinsons disease: (2) Metabolic encephalopathy: (3) Acute UTI: (4) HTN (hypertension): (5) Anxiety: (6) Impaired mobility and activities of daily living: Plan This is a 79-year-old female who presents to [facility] IRF due to multifactorial functional decline in the setting of acute UTI with metabolic encephalopathy in the setting ofParkinsons Disease. She has continued impaired mobility and impaired independence with ADLs and IADLs requiring PT/OT/COOKER MECHANIC 5-7 days/week 3 hours/day to maximize safety [...] equipment to enhance the patient's a functional lutheran -Encourage deep breathing exercises and incentive spirometry [...] I spent 17 minutes for services, including sfdn-ob-qgif encounter with the patient, discussion of the case, plan of care, and exam; and jcmjsho-ef-okux activities, such as reviewing pertinent apple solutions consultant documentation, recent therapynotes, laboratory and radiology studies, and discussion of case with care team including physician, nursing, casework supervisor, and therapists. More than 50 % of [...] 206 Signed By: 09/03/24 1238 09/05/24 1009 [facility]03-26-2025 Consult note Author Henrry Jon [facility] Note Date/Time September 03, 2024 11: 59am [facility] [address] [place] [address] Orthopedic Consult Note Signed Patient: Judith Land MR#: [id number] : 1945 Acct:[id number] Age/Sex: 79 / F Adm Date: 5 Loc: Room: [address] [place] [address] Type: ADM IN Attending Dr: Pa Neil [...] fracture for which she underwent fixation in [place]. Review of Systems Review of Systems All other systems reviewed & are negative unless noted below or in HPI [facility] Medical History RLS (restless legs syndrome) CAD [...] % (Auto) 65.3, Lymph % (Auto) 15.8, [place] % (Auto) 17.1, Eos % (Auto) 1.1, Baso % (Auto) 0.7, Nucleat RBC Rel Count 0.2, Neut # (Auto) 5.7, Lymph # (Auto) 1.4, [place] # (Auto) 1.5 H, Eos # (Auto) [...] <Electronically signed by MD Henrry Jon> 09/03/24 3027 [facility] Work Phone: 1(118) 749-446903-26-2025 [place] [id number] Orthopedic Consult Note Signed Patient: Judith Land MR#: [id number] : 1945 Acct:[id number] Age/Sex: 79 / F Adm Date: 5 Loc: Room: 7K5741-5 Type: ADM IN Attending Dr: Pa Neil [...] fracture for which she underwent fixation in [place]. Review of Systems Review of Systems All other systems reviewed & are negative unless noted below or in HPI [facility] Medical History RLS (restless legs syndrome) CAD [...] % (Auto) 65.3, Lymph % (Auto) 15.8, [place] % (Auto) 17.1, Eos % (Auto) 1.1, Baso % (Auto) 0.7, Nucleat RBC Rel Count 0.2, Neut # (Auto) 5.7, Lymph # (Auto) 1.4, [place] # (Auto) 1.5 H, Eos # (Auto) [...] MD 09/03/24 1147 Signed By: 09/03/24 1159 [facility]03-26-2025 Progress note Author Pa Neil [facility] Note Date/Time September 02, 2024 10: 14pm [facility] [address] [place] [address] Physiatry(Rehab) Progress Note Signed Patient: Judith Land MR#: [id number] : 1945 Acct:[id number] Age/Sex: 79 / F Adm Date: 5 Loc: Room: [address] [place] [address] Type: ADM IN Attending Dr: Pa Neil [...] this week. Plan for DC home this . Review of Systems Review of Systems All [...] % (Auto) 65.3 Lymph % (Auto) 15.8 [place] % (Auto) 17.1 Eos % (Auto) 1.1 Baso % (Auto) 0.7 Nucleat RBC Rel Count 0.2 Neut # (Auto) 5.7 Lymph # (Auto) 1.4 [place] # (Auto) 1.5 H Eos # (Auto) [...] mg 08/25/24 15:48 Bisacodyl 10 Mg Supp.Rect SD 08/25/25 15:47 DAILY PRN Constipation Carbidopa/Levodopa 1 tab 09/01/24 12:00 09/02/24 17:51 Carbidopa/Levodopa 10-100 Mg 1 Tab Tablet PO 09/01/25 11:59 1 tab TID@0700,1200,1700 LLOYD Administration Docusate Sodium 100 mg 08/25/24 15:48 09/02/24 22:01 Docusate 100 Mg Capsule PO 08/25/25 15:47 100 mg BID PRN Administration Constipation Docusate Sodium 283 mg 08/25/24 15:48 Docusate Enema 283 Mg/5 Ml Enema SD 08/25/25 15:47 DAILY PRN Constipation Heparin Sodium [...] Mg/10 Ml Udc PO 09/02/25 08:59 [facility] Multivitamins 1 tab 08/26/24 09:00 09/02/24 09:31 [...] Capsule PO 08/26/25 08:59 125 mcg DAILY LLODY Administration Zinc Gluconate 50 mg 08/26/24 09:00 [...] female who presents to [facility] IRF due to multifactorial functional decline in the setting of acute UTI with metabolic encephalopathy in the setting of Parkinsons Disease. She has continued impaired mobility and impaired independence with ADLs and IADLs requiring PT/OT/COOKER MECHANIC 5-7 days/week 3 hours/day to maximize safety [...] equipment to enhance the patient's a functional lutheran -Encourage deep breathing exercises and incentive spirometry -RD evaluation -Ensure adequate nutrition and hydration -Discharge planning. #. UPDATES -Cognition seems to be improving -Discussed adequate hydration with the patient. Will recheck labs in AM -Continue current care. Will have another FI this week with hopeful DC home jackie -VINNY SALMERON per patients orthopedic surgeon -Completed [...] I spent 25 minutes for services, including nycz-bu-sqyg encounter with the patient, discussion of the case, plan of care, and exam; and jgkbbpn-nx-adfv activities, such as reviewing pertinent apple solutions consultant documentation, recent therapynotes, laboratory and radiology studies, and discussion of case with care team including physician, nursing, casework supervisor, and therapists. More than 50 % of time was spent on patient/family counseling or coordination ofcare. Documented By: Pa Neil MD 2207 Signed By: <Electronically signed by Pa Neil MD> 09/02/242213 [facility] Work Phone: 1(344) 906-261803-25-2025 [place] [address] Physiatry(Rehab) Progress Note Signed Patient: Judith Land MR#: [id number] : 1945 Acct:[id number] Age/Sex: 79 / F Adm Date: 5 Loc: Room: [address] [place] [address] Type: ADM IN Attending Dr: Pa Neil [...] % (Auto) 65.3 Lymph % (Auto) 15.8 [place] % (Auto) 17.1 Eos % (Auto) 1.1 Baso % (Auto) 0.7 Nucleat RBC Rel Count 0.2 Neut # (Auto) 5.7 Lymph # (Auto) 1.4 [place] # (Auto) 1.5 H Eos # (Auto) [...] mg 08/25/24 15:48 Bisacodyl 10 Mg Supp.Rect SD 08/25/25 15:47 DAILY PRN Constipation Carbidopa/Levodopa 1 tab 09/01/24 12:00 09/02/24 17:51 Carbidopa/Levodopa 10-100 Mg 1 Tab Tablet PO 09/01/25 11:59 1 tab TID@0700,1200,1700 LLOYD Administration Docusate Sodium 100 mg 08/25/24 15:48 09/02/24 22:01 Docusate 100 Mg Capsule PO 08/25/25 15:47 100 mg BID PRN Administration Constipation Docusate Sodium 283 mg 08/25/24 15:48 Docusate Enema 283 Mg/5 Ml Enema SD 08/25/25 15:47 DAILY PRN Constipation Heparin Sodium [...] 09/02/24 09:32 Pantoprazole 40 Mg Tablet.Dr PO 03/18/26 08:59 40 mg QAM LLOYD Administration Potassium [...] female who presents to [facility] IRF due to multifactorial functional decline in the setting of acute UTI with metabolic encephalopathy in the setting ofParkinsons Disease. She has continued impaired mobility and impaired independence with ADLs and IADLs requiring PT/OT/COOKER MECHANIC 5-7 days/week 3 hours/day to maximize safety [...] equipment to enhance the patient's a functional lutheran -Encourage deep breathing exercises and incentive spirometry -RD evaluation -Ensure adequate nutrition and hydration -Discharge planning. #. UPDATES -Cognition seems to be improving -Discussed adequate hydration with the patient. Will recheck labs in AM -Continue current care. Will have another FI this week with hopeful DC home [place] -VINNY SALMERON per patients orthopedic surgeon -Completed [...] I spent 25 minutes for services, including hesa-ll-tisb encounter with the patient, discussion of the case, plan of care, and exam; and rkpqbeu-sh-oocf activities, such as reviewing pertinent apple solutions consultant documentation, recent therapynotes, laboratory and radiology studies, and discussion of case with care team including physician, nursing, casework supervisor, and therapists. More than 50 % of time was spent on patient/family counseling or coordination ofcare. Documented By: Pa Neil MD 2207 Signed By: 09/02/242213 [facility]03-24-2025 Progress note Author Baylee Ho [facility] Note Date/Time September 01, 2024 5:4 2pm [facility] [address] [place] [address] Hospitalist Progress Note Signed Patient: Judith Land MR#: [id number] : 1945 Acct:[id number] Age/Sex: 79 / F Adm Date: 5 Loc: Room: [address] [place] [address] Type: ADM IN Attending Dr: Pa Neil [...] mg 08/25/24 15:48 Bisacodyl 10 Mg Supp.Rect SD 08/25/25 15:47 DAILY PRN Constipation Carbidopa/Levodopa 1 tab 09/01/24 12:00 09/01/24 13:28 Carbidopa/Levodopa 10-100 Mg 1 Tab Tablet PO 09/01/25 11:59 1 tab TID@0700,1200,1700 LLOYD Administration Docusate Sodium 100 mg 08/25/24 15:48 08/31/24 08:43 Docusate 100 Mg Capsule PO 08/25/25 15:47 100 mg BID PRN Administration Constipation Docusate Sodium 283 mg 08/25/24 15:48 Docusate Enema 283 Mg/5 Ml Enema SD 08/25/25 15:47 DAILY PRN Constipation Heparin Sodium [...] By: <Electronically signed by MIGUEL Ho> 09/01/24 7079 [facility] Work Phone: 1(192) 773-616903-24-2025 Progress note Author Baljeet Rao [facility] Note Date/Time September 01, 2024 3:5 2pm [facility] [address] [place] [address] Neurology Progress Note Signed Patient: Judith Land MR#: [id number] : 1945 Acct:[id number] Age/Sex: 79 / F Adm Date: 5 Loc: 5T Room: 9A0909-2 Type: ADM IN Attending Dr: Pa Neil [...] concerns Documented By: Baljeet Rao DO 5 [id number] Signed By: <Electronically signed by Baljeet Rao DO> 09/01/24 [facility] Work Phone: 1(927) 830-186303-24-2025 [place] [address] Hospitalist Progress Note Signed Patient: Judith Land MR#: [id number] : 1945 Acct:[id number] Age/Sex: 79 / F Adm Date: 5 Loc: Room: [address] [place] [address] Type: ADM IN Attending Dr: Pa Neil [...] mg 08/25/24 15:48 Bisacodyl 10 Mg Supp.Rect SD 08/25/25 15:47 DAILY PRN Constipation Carbidopa/Levodopa 1 tab 09/01/24 12:00 09/01/24 13:28 Carbidopa/Levodopa 10-100 Mg 1 Tab Tablet PO 09/01/25 11:59 1 tab TID@0700,1200,1700 LLOYD Administration Docusate Sodium 100 mg 08/25/24 15:48 08/31/24 08:43 Docusate 100 Mg Capsule PO 08/25/25 15:47 100 mg BID PRN Administration Constipation Docusate Sodium 283 mg 08/25/24 15:48 Docusate Enema 283 Mg/5 Ml Enema SD 08/25/25 15:47 DAILY PRN Constipation Heparin Sodium [...] alprazolam Documented By: Baylee Ho APRN 08/10 10/03 1425 Signed By: 09/01/24 1742 [facility]03-24-2025 Radiology Diagnostic study note [facility] [place] [address] [place] [address] CT Scan Report Signed Patient: Judith Land MR#: [id number] : 1945 Acct:[id number] Age/Sex: 79 / F ADM Date: 5 Loc: Room: 3D5391-9 Type: ADM IN Attending Dr: Pa Neil [...] Guerrero Jr., D.ORatna09/01/2024 4:29 PM Dictation Location: [facility]--18 Transcribed By: [facility] 09/01/241628 Dictated By: Ramsey Guerrero Jr, 09/01/241626 Signed By: 09/01/24 162 [facility]03-24-[address] [address] Neurology Progress Note Signed Patient: Judith Land MR#: [id number] : 1945 Acct:[id number] Age/Sex: 79 / F Adm Date: 5 Loc: Room: [address] [place] [address] Type: ADM IN Attending Dr: Pa Neil [...] or concerns Documented By: Baljeet Rao DO 6 1898 Signed By: 09/01/24 1552 [facility]03-24-2025 Progress note Author Pa Neil [facility] Note Date/Time September 01, 2024: 06pm [facility] [address] [place] [address] Physiatry(Rehab) Progress Note Signed Patient: Judith Land MR#: [id number] : 1945 Acct:[id number] Age/Sex: 79 / F Adm Date: Loc: Room: [address] [place] [address] Type: ADM IN Attending Dr: Pa Neil [...] % (Auto) 64.8 Lymph % (Auto) 20.6 [place] % (Auto) 13.4 Eos % (Auto) 0.7 Baso % (Auto) 0.5 Nucleat RBC Rel Count 0.1 Neut # (Auto) 4.3 Lymph # (Auto) 1.4 [place] # (Auto) 0.9 H Eos # (Auto) [...] mg 08/25/24 15:48 Bisacodyl 10 Mg Supp.Rect SD 08/25/25 15:47 DAILY PRN Constipation Carbidopa/Levodopa 1 tab 09/01/24 12:00 Carbidopa/Levodopa 10-100 Mg 1 Tab Tablet PO 09/01/25 11:59 TID@0700,1200,1700 LLOYD Docusate Sodium 100 mg 08/25/24 15:48 08/31/24 08:43 Docusate 100 Mg Capsule PO 08/25/25 15:47 100 mg BID PRN Administration Constipation Docusate Sodium 283 mg 08/25/24 15:48 Docusate Enema 283 Mg/5 Ml Enema SD 08/25/25 15:47 DAILY PRN Constipation Heparin Sodium [...] female who presents to [facility] IRF due to multifactorial functional decline in the setting of acute UTI with metabolic encephalopathy in the setting of Parkinsons Disease. She has continued impaired mobility and impaired independence with ADLs and IADLs requiring PT/OT/COOKER MECHANIC 5-7 days/week 3 hours/day to maximize safety [...] equipment to enhance the patient's a functional lutheran -Encourage deep breathing exercises and incentive spirometry [...] I spent 30 minutes for services, including cyqi-ru-fshi encounter with the patient, discussion of the case, plan of care, and exam; and gtorfqa-ir-dxii activities, such as reviewing pertinent apple solutions consultant documentation, recent therapynotes, laboratory and radiology studies, and discussion of case with care team including physician, nursing, casework supervisor, and therapists. More than 50 % of time was spent on patient/family counseling or coordination ofcare. Documented By: Pa Neil MD 1200 Signed By: <Electronically signed by Pa Neil MD> 09/01/24 [facility] Work Phone: 1(630) 552-354003-24-2025 [place] [address] Physiatry(Rehab) Progress Note Signed Patient: Judith Land MR#: [id number] : 1945 Acct:[id number] Age/Sex: 79 / F Adm Date: 5 Loc: Room: [address] [place] [address] Type: ADM IN Attending Dr: Pa Neil [...] % (Auto) 64.8 Lymph % (Auto) 20.6 [place] % (Auto) 13.4 Eos % (Auto) 0.7 Baso % (Auto) 0.5 Nucleat RBC Rel Count 0.1 Neut # (Auto) 4.3 Lymph # (Auto) 1.4 [place] # (Auto) 0.9 H Eos # (Auto) [...] mg 08/25/24 15:48 Bisacodyl 10 Mg Supp.Rect SD 08/25/25 15:47 DAILY PRN Constipation Carbidopa/Levodopa 1 tab 09/01/24 12:00 Carbidopa/Levodopa 10-100 Mg 1 Tab Tablet PO 09/01/25 11:59 TID@0700,1200,1700 L[place]YD Docusate Sodium 100 mg 08/25/24 15:48 08/31/24 08:43 Docusate 100 Mg Capsule PO 08/25/25 15:47 100 mg BID PRN Administration Constipation Docusate Sodium 283 mg 08/25/24 15:48 Docusate Enema 283 Mg/5 Ml Enema SD 08/25/25 15:47 DAILY PRN Constipation Heparin Sodium [...] female who presents to [facility] IRF due to multifactorial functional decline in the setting of acute UTI with metabolic encephalopathy in the setting ofParkinsons Disease. She has continued impaired mobility and impaired independence with ADLs and IADLs requiring PT/OT/COOKER MECHANIC 5-7 days/week 3 hours/day to maximize safety [...] equipment to enhance the patient's a functional lutheran -Encourage deep breathing exercises and incentive spirometry [...] I spent 30 minutes for services, including qmko-ce-tzrd encounter with the patient, discussion of the case, plan of care, and exam; and lhnvvpr-mq-oxwo activities, such as reviewing pertinent apple solutions consultant documentation, recent therapynotes, laboratory and radiology studies, and discussion of case with care team including physician, nursing, casework supervisor, and therapists. More than 50 % of time was spent on patient/family counseling or coordination ofcare. Documented By: Pa Neil MD 1200 Signed By: 09/01/24 1206 [facility]03-24-2025 Progress note Author Pa Neil [facility] Note Date/Time August 31, 2024 10: 13pm [facility] [address] [place] [address] Physiatry(Rehab) Progress Note Signed Patient: Judith Land MR#: [id number] : 1945 Acct:[id number] Age/Sex: 79 / F Adm Date: 5 Loc: Room: [address] [place] [address] Type: ADM IN Attending Dr: Pa Neil [...] % (Auto) 64.8 Lymph % (Auto) 20.6 [place] % (Auto) 13.4 Eos % (Auto) 0.7 Baso % (Auto) 0.5 Nucleat RBC Rel Count 0.1 Neut # (Auto) 4.3 Lymph # (Auto) 1.4 [place] # (Auto) 0.9 H Eos # (Auto) [...] mg 08/25/24 15:48 Bisacodyl 10 Mg Supp.Rect SD 08/25/25 15:47 DAILY PRN Constipation Carbidopa/Levodopa 1 tab 08/25/24 22:00 08/31/24 21:33 Carbidopa/Levodopa 10-100 Mg 1 Tab Tablet PO 08/25/25 21:59 1 tab TID L[place] Administration Docusate Sodium 100 mg 08/25/24 15:48 08/31/24 08:43 Docusate 100 Mg Capsule PO 08/25/25 15:47 100 mg BID PRN Administration Constipation Docusate Sodium 283 mg 08/25/24 15:48 Docusate Enema 283 Mg/5 Ml Enema SD 08/25/25 15:47 DAILY PRN Constipation Heparin Sodium [...] female who presents to [facility] IRF due to multifactorial functional decline in the setting of acute UTI with metabolic encephalopathy in the setting of Parkinsons Disease. She has continued impaired mobility and impaired independence with ADLs and IADLs requiring PT/OT/COOKER MECHANIC 5-7 days/week 3 hours/day to maximize safety [...] equipment to enhance the patient's a functional lutheran -Encourage deep breathing exercises and incentive spirometry [...] I spent 30 minutes for services, including plgk-jt-mwpv encounter with the patient, discussion of the case, plan of care, and exam; and ajsywvb-mi-tyai activities, such as reviewing pertinent apple solutions consultant documentation, recent therapynotes, laboratory and radiology studies, and discussion of case with care team including physician, nursing, casework supervisor, and therapists. More than 50 % of time was spent on patient/family counseling or coordination ofcare. Documented By: Pa Neil MD 2207 Signed By: <Electronically signed by Pa Neil MD> 08/31/242212 [facility] Work Phone: 1(341) 473-191403-23-2025 [place] [address] Physiatry(Rehab) Progress Note Signed Patient: Judith Land MR#: [id number] : 1945 Acct:[id number] Age/Sex: 79 / F Adm Date: 5 Loc: Room: [id number] Type: ADM IN Attending Dr: Pa Neil [...] % (Auto) 64.8 Lymph % (Auto) 20.6 [place] % (Auto) 13.4 Eos % (Auto) 0.7 Baso % (Auto) 0.5 Nucleat RBC Rel Count 0.1 Neut # (Auto) 4.3 Lymph # (Auto) 1.4 [place] # (Auto) 0.9 H Eos # (Auto) [...] mg 08/25/24 15:48 Bisacodyl 10 Mg Supp.Rect SD 08/25/25 15:47 DAILY PRN Constipation Carbidopa/Levodopa 1 tab 08/25/24 22:00 08/31/24 21:33 Carbidopa/Levodopa 10-100 Mg 1 Tab Tablet PO 08/25/25 21:59 1 tab TID L[place] Administration Docusate Sodium 100 mg 08/25/24 15:48 08/31/24 08:43 Docusate 100 Mg Capsule PO 08/25/25 15:47 100 mg BID PRN Administration Constipation Docusate Sodium 283 mg 08/25/24 15:48 Docusate Enema 283 Mg/5 Ml Enema SD 08/25/25 15:47 DAILY PRN Constipation Heparin Sodium [...] female who presents to [facility] IRF due to multifactorial functional decline in the setting of acute UTI with metabolic encephalopathy in the setting ofParkinsons Disease. She has continued impaired mobility and impaired independence with ADLs and IADLs requiring PT/OT/COOKER MECHANIC 5-7 days/week 3 hours/day to maximize safety [...] equipment to enhance the patient's a functional lutheran -Encourage deep breathing exercises and incentive spirometry [...] I spent 30 minutes for services, including ejxi-ju-pdku encounter with the patient, discussion of the case, plan of care, and exam; and ojcligx-in-wjlx activities, such as reviewing pertinent apple solutions consultant documentation, recent therapynotes, laboratory and radiology studies, and discussion of case with care team including physician, nursing, casework supervisor, and therapists. More than 50 % of time was spent on patient/family counseling or coordination ofcare. Documented By: Pa Neil MD 2207 Signed By: 08/31/24 2213 [facility]03-22-2025 Progress note Author Didi Navarro [facility] Note Date/Time August 29, 2024 11: 00pm [facility] [address] [place] [address] Physiatry(Rehab) Progress Note Signed Patient: Judith Land MR#: [id number] : 1945 Acct:[id number] Age/Sex: 79 / F Adm Date: 5 Loc: Room: [address] [place] [address] Type: ADM IN Attending Dr: Pa Neil [...] mg 08/25/24 15:48 Bisacodyl 10 Mg Supp.Rect SD 08/25/25 15:47 DAILY PRN Constipation Carbidopa/Levodopa 1 tab 08/25/24 22:00 08/29/24 11:10 Carbidopa/Levodopa 10-100 Mg 1 Tab Tablet PO 08/25/25 21:59 1 tab TID L[place] Administration Docusate Sodium 100 mg 08/25/24 15:48 08/28/24 20:20 Docusate 100 Mg Capsule PO 08/25/25 15:47 100 mg BID PRN Administration Constipation Docusate Sodium 283 mg 08/25/24 15:48 Docusate Enema 283 Mg/5 Ml Enema SD 08/25/25 15:47 DAILY PRN Constipation Heparin Sodium [...] female who presents to [facility] IRF due to multifactorial functional decline in the setting of acute UTI with metabolic encephalopathy in the setting of Parkinsons Disease. She has continued impaired mobility and impaired independence with ADLs and IADLs requiring PT/OT/COOKER MECHANIC 5-7 days/week 3 hours/day to maximize safety [...] equipment to enhance the patient's a functional lutheran -Encourage deep breathing exercises and incentive spirometry [...] I spent 23 minutes for services, including ujys-ph-lnku encounter with the patient, discussion of the case, plan of care, and exam; and xtuvkey-tz-pnyq activities, such as reviewing pertinent apple solutions consultant documentation, recent therapynotes, laboratory and radiology studies, and discussion of case with care team including physician, nursing, casework supervisor, and therapists. More than 50 % of time was spent on patient/family counseling or coordination ofcare. <Statement entered by Pa Neil MD - 08/29/24 23:00> This documentation has been reviewed and approved. Documented By: Didi Navarro APRN 08/29/24 1 328 Signed By: <Electronically signed by MIGUEL Navarro> 08/29/24 1335 <Electronically signed by Pa Neil MD> 08/29/24 2300 [facility] Work Phone: 1(608) 892-219903-21-2025 [place] [address] Physiatry(Rehab) Progress Note Signed Patient: Judith Land MR#: [id number] : 1945 Acct:[id number] Age/Sex: 79 / F Adm Date: 5 Loc: 5T Room: 1K5116-0 Type: ADM IN Attending Dr: Pa Neil [...] mg 08/25/24 15:48 Bisacodyl 10 Mg Supp.Rect SD 08/25/25 15:47 DAILY PRN Constipation Carbidopa/Levodopa 1 tab 08/25/24 22:00 08/29/24 11:10 Carbidopa/Levodopa 10-100 Mg 1 Tab Tablet PO 08/25/25 21:59 1 tab TID L[place] Administration Docusate Sodium 100 mg 08/25/24 15:48 08/28/24 20:20 Docusate 100 Mg Capsule PO 08/25/25 15:47 100 mg BID PRN Administration Constipation Docusate Sodium 283 mg 08/25/24 15:48 Docusate Enema 283 Mg/5 Ml Enema SD 08/25/25 15:47 DAILY PRN Constipation Heparin Sodium [...] female who presents to [facility] IRF due to multifactorial functional decline in the setting of acute UTI with metabolic encephalopathy in the setting ofParkinsons Disease. She has continued impaired mobility and impaired independence with ADLs and IADLs requiring PT/OT/COOKER MECHANIC 5-7 days/week 3 hours/day to maximize safety [...] equipment to enhance the patient's a functional lutheran -Encourage deep breathing exercises and incentive spirometry [...] I spent 23 minutes for services, including dtci-pn-yvds encounter with the patient, discussion of the case, plan of care, and exam; and scsdwlv-nc-wlua activities, such as reviewing pertinent apple solutions consultant documentation, recent therapynotes, laboratory and radiology studies, and discussion of case with care team including physician, nursing, casework supervisor, and therapists. More than 50 % of time was spent on patient/family counseling or coordination ofcare. This documentation has been reviewed and approved. Documented By: Didi Navarro APRN 08/29/24 1 328 Signed By: 08/29/24 1335 08/29/24 2300 [facility]03-20-2025 Consult note Author Katarzyna Major [facility] Note Date/Time August 28, 2024 2:2 9pm [facility] [address] [place] [address] Hospitalist Consult Note Signed Patient: Judith Land MR#: [id number] : 1945 Acct:[id number] Age/Sex: 79 / F Adm Date: 5 Loc: Room: 9X1859-0 Type: ADM IN Attending Dr: Pa Neil MD Copies to: MD Kavon Champion MD Linda Obika, APRN Yazid Hussein, DO~ HPI DATE OF CONSULTATION: 08/26/24 REQUESTING [...] negative unless noted in the HPI below PMFSH Source: Old Records Reviewed Medical History RLS [...] mg 08/25/24 15:48 Bisacodyl 10 Mg Supp.Rect SD 08/25/25 15:47 DAILY PRN Constipation Carbidopa/Levodopa 1 tab 08/25/24 22:00 08/26/24 09:05 Carbidopa/Levodopa 10-100 Mg 1 Tab Tablet PO 08/25/25 21:59 1 tab TID [place] Administration Docusate Sodium 100 mg 08/25/24 15:48 Docusate 100 Mg Capsule PO 08/25/25 15:47 BID PRN Constipation Docusate Sodium 283 mg 08/25/24 15:48 Docusate Enema 283 Mg/5 Ml Enema SD 08/25/25 15:47 DAILY PRN Constipation Heparin Sodium [...] % (Auto) N/A, Lymph % (Auto) N/A, [place] % (Auto) N/A, Eos % (Auto) N/A, Baso% (Auto) N/A, Nucleat RBC Rel Count N/A, Neut # (Auto) N/A, Lymph # (Auto) N/A, [place] # (Auto) N/A, Eos # (Auto) N/A, [...] <Electronically signed by Aristeo Kong DO> 08/28/24 1424 [facility] Work Phone: 1(445) 242-136103-20-2025 Progress note Author Pa Neil [facility] Note Date/Time August 28, 2024 12: 42pm [facility] [address] [place] [address] Physiatry(Rehab) Progress Note Signed Patient: Judith Land MR#: [id number] : 1945 Acct:[id number] Age/Sex: 79 / F Adm Date: 5 Loc: Room: [address] [place] [address] Type: ADM IN Attending Dr: Pa Neil [...] mg 08/25/24 15:48 Bisacodyl 10 Mg Supp.Rect SD 08/25/25 15:47 DAILY PRN Constipation Carbidopa/Levodopa 1 tab 08/25/24 22:00 08/28/24 08:39 Carbidopa/Levodopa 10-100 Mg 1 Tab Tablet PO 08/25/25 21:59 1 tab TID [place] Administration Docusate Sodium 100 mg 08/25/24 15:48 Docusate 100 Mg Capsule PO 08/25/25 15:47 BID PRN Constipation Docusate Sodium 283 mg 08/25/24 15:48 Docusate Enema 283 Mg/5 Ml Enema SD 08/25/25 15:47 DAILY PRN Constipation Heparin Sodium [...] female who presents to [facility] IRF due to multifactorial functional decline in the setting of acute UTI with metabolic encephalopathy in the setting of Parkinsons Disease. She has continued impaired mobility and impaired independence with ADLs and IADLs requiring PT/OT/COOKER MECHANIC 5-7 days/week 3 hours/day to maximize safety [...] equipment to enhance the patient's a functional lutheran -Encourage deep breathing exercises and incentive spirometry [...] sleep/agitation. Monitor for worsening PD symptoms -Continue PT/OT/ -[facility]ist to assist with management of comorbid medical [...] I spent 25 minutes for services, including zcbe-ps-pncg encounter with the patient, discussion of the case, plan of care, and exam; and gmtbgcc-os-ejtx activities, such as reviewing pertinent apple solutions consultant documentation, recent therapynotes, laboratory and radiology studies, and discussion of case with care team including physician, nursing, casework supervisor, and therapists. More than 50 % of time was spent on patient/family counseling or coordination ofcare. Documented By: Pa Neil MD 1239 Signed By: <Electronically signed by Pa Neil MD> 08/28/24 1249 [facility] Work Phone: 1(194) 885-697503-20-2025 [place] [address] Hospitalist Consult Note Signed Patient: Judith Land MR#: [id number] : 1945 Acct:[id number] Age/Sex: 79 / F Adm Date: 5 Loc: Room: [address] [place] [address] Type: ADM IN Attending Dr: Pa Neil MD Copies to: MD Kavon Champion MD Linda Obika, APRN Yazid Hussein, DO~ HPI DATE OF CONSULTATION: 08/26/24 REQUESTING [...] negative unless noted in the HPI below PMFSH Source: Old Records Reviewed Medical History RLS [...] mg 08/25/24 15:48 Bisacodyl 10 Mg Supp.Rect SD 08/25/25 15:47 DAILY PRN Constipation Carbidopa/Levodopa 1 tab 08/25/24 22:00 08/26/24 09:05 Carbidopa/Levodopa 10-100 Mg 1 Tab Tablet PO 08/25/25 21:59 1 tab TID [place] Administration Docusate Sodium 100 mg 08/25/24 15:48 Docusate 100 Mg Capsule PO 08/25/25 15:47 BID PRN Constipation Docusate Sodium 283 mg 08/25/24 15:48 Docusate Enema 283 Mg/5 Ml Enema SD 08/25/25 15:47 DAILY PRN Constipation Heparin Sodium [...] % (Auto) N/A, Lymph % (Auto) N/A, [place]% (Auto) N/A, Eos % (Auto) N/A, Baso% (Auto) N/A, Nucleat RBC Rel Count N/A, Neut # (Auto) N/A, Lymph # (Auto) N/A, [place] # (Auto) N/A, Eos # (Auto) N/A, [...] 1445 Signed By: 08/26/24 1546 08/28/24 1429 [facility]03-20-2025 [place] [address] Physiatry(Rehab) Progress Note Signed Patient: Judith Land MR#: [id number] : 1945 Acct:[id number] Age/Sex: 79 / F Adm Date: 5 Loc: 5T Room: 2L0384-8 Type: ADM IN Attending Dr: Pa Neil [...] mg 08/25/24 15:48 Bisacodyl 10 Mg Supp.Rect SD 08/25/25 15:47 DAILY PRN Constipation Carbidopa/Levodopa 1 tab 08/25/24 22:00 08/28/24 08:39 Carbidopa/Levodopa 10-100 Mg 1 Tab Tablet PO 08/25/25 21:59 1 tab TID [place] Administration Docusate Sodium 100 mg 08/25/24 15:48 Docusate 100 Mg Capsule PO 08/25/25 15:47 BID PRN Constipation Docusate Sodium 283 mg 08/25/24 15:48 Docusate Enema 283 Mg/5 Ml Enema SD 08/25/25 15:47 DAILY PRN Constipation Heparin Sodium [...] female who presents to [facility] IRF due to multifactorial functional decline in the setting of acute UTI with metabolic encephalopathy in the setting ofParkinsons Disease. She has continued impaired mobility and impaired independence with ADLs and IADLs requiring PT/OT/COOKER MECHANIC 5-7 days/week 3 hours/day to maximize safety [...] equipment to enhance the patient's a functional lutheran -Encourage deep breathing exercises and incentive spirometry [...] I spent 25 minutes for services, including oufz-yc-uwmh encounter with the patient, discussion of the case, plan of care, and exam; and lyokmdy-tj-bklk activities, such as reviewing pertinent apple solutions consultant documentation, recent therapynotes, laboratory and radiology studies, and discussion of case with care team including physician, nursing, casework supervisor, and therapists. More than 50 % of time was spent on patient/family counseling or coordination ofcare. Documented By: Pa Neil MD 1239 Signed By: 08/28/24 1242 [facility]03-19-2025 Progress note Author Didi Taylorgama [facility] Note Date/Time August 27, 2024 8:5 4pm [facility] [address] [place] [address] Physiatry(Rehab) Progress Note Signed Patient: Judith Land MR#: [id number] : 1945 Acct:[id number] Age/Sex: 79 / F Adm Date: 5 Loc: Room: 5H6311-3 Type: ADM IN Attending Dr: Pa Neil [...] mg 08/25/24 15:48 Bisacodyl 10 Mg Supp.Rect SD 08/25/25 15:47 DAILY PRN Constipation Carbidopa/Levodopa 1 tab 08/25/24 22:00 08/27/24 14:43 Carbidopa/Levodopa 10-100 Mg 1 Tab Tablet PO 08/25/25 21:59 1 tab TID L[place] Administration Docusate Sodium 100 mg 08/25/24 15:48 Docusate 100 Mg Capsule PO 08/25/25 15:47 BID PRN Constipation Docusate Sodium 283 mg 08/25/24 15:48 Docusate Enema 283 Mg/5 Ml Enema SD 08/25/25 15:47 DAILY PRN Constipation Heparin Sodium [...] female who presents to [facility] IRF due to multifactorial functional decline in the setting of acute UTI with metabolic encephalopathy in the setting of Parkinsons Disease. She has continued impaired mobility and impaired independence with ADLs and IADLs requiring PT/OT/COOKER MECHANIC 5-7 days/week 3 hours/day to maximize safety [...] equipment to enhance the patient's a functional lutheran -Encourage deep breathing exercises and incentive spirometry [...] I spent 25 minutes for services, including eonc-pl-ioxi encounter with the patient, discussion of the case, plan of care, and exam; and awwjudy-cn-bmyo activities, such as reviewing pertinent apple solutions consultant documentation, recent therapynotes, laboratory and radiology studies, and discussion of case with care team including physician, nursing, casework supervisor, and therapists. More than 50 % of time was spent on patient/family counseling or coordination ofcare. <Statement entered by Pa Neil MD - 08/27/24 20:54> This documentation has been reviewed and approved. Documented By: Didi Naavrro APRN 08/27/24 1 203 Signed By: <Electronically signed by MIGUEL Navarro> 08/27/24 1603 <Electronically signed by Pa Neil MD> 08/27/242053 [facility] Work Phone: 1(646) 874-810903-19-[address] [address] Physiatry(Rehab) Progress Note Signed Patient: Judith Land MR#: [id number] : 1945 Acct:[id number] Age/Sex: 79 / F Adm Date: 5 Loc: Room: [address] [place] [address] Type: ADM IN Attending Dr: Pa Neil [...] mg 08/25/24 15:48 Bisacodyl 10 Mg Supp.Rect SD 08/25/25 15:47 DAILY PRN Constipation Carbidopa/Levodopa 1 tab 08/25/24 22:00 08/27/24 14:43 Carbidopa/Levodopa 10-100 Mg 1 Tab Tablet PO 08/25/25 21:59 1 tab TID [place] Administration Docusate Sodium 100 mg 08/25/24 15:48 Docusate 100 Mg Capsule PO 08/25/25 15:47 BID PRN Constipation Docusate Sodium 283 mg 08/25/24 15:48 Docusate Enema 283 Mg/5 Ml Enema SD 08/25/25 15:47 DAILY PRN Constipation Heparin Sodium [...] female who presents to [facility] IRF due to multifactorial functional decline in the setting of acute UTI with metabolic encephalopathy in the setting ofParkinsons Disease. She has continued impaired mobility and impaired independence with ADLs and IADLs requiring PT/OT/COOKER MECHANIC 5-7 days/week 3 hours/day to maximize safety [...] equipment to enhance the patient's a functional lutheran -Encourage deep breathing exercises and incentive spirometry [...] I spent 25 minutes for services, including fnjm-ar-gist encounter with the patient, discussion of the case, plan of care, and exam; and zigvpxi-mr-dnvm activities, such as reviewing pertinent apple solutions consultant documentation, recent therapynotes, laboratory and radiology studies, and discussion of case with care team including physician, nursing, casework supervisor, and therapists. More than 50 % of time was spent on patient/family counseling or coordination ofcare. This documentation has been reviewed and approved. Documented By: Didi Navarro APRN 08/27/24 1 Signed By: 08/27/24 1603 08/27/242053 [facility]03-18-2025 History and physical note Author Pa Neil [facility] Note Date/Time August 26, 2024 12: 58pm [facility] [address] [place] [address] Physiatry (Rehab) H&P Signed Patient: Judith Land MR#: [id number] : 1945 Acct:[id number] Age/Sex: 79 / F Adm Date: 5 Loc: 5T Room: 1J2146-0 Type: ADM IN Attending Dr: Pa Neil [...] worse over the past month. [facility] Medical History RLS (restless legs syndrome) CAD [...] Bisacodyl (Bisacodyl 10 Mg Supp.Rect) 10 mg SD DAILY PRN PRN Reason: Constipation Stop: 08/25/25 15:47 Carbidopa/Levodopa (Carbidopa/Levodopa 10-100 Mg 1 Tab Tablet) 1 tab PO TID [facility] Stop: 08/25/25 21:59 Last Admin: 08/26/24 09:05 Dose: 1 tab Docusate Sodium (Docusate 100 Mg Capsule) 100 mg PO BID PRN PRN Reason: Constipation Stop: 08/25/25 15:47 Docusate Sodium (Docusate Enema 283 Mg/5 Ml Enema) 283 mg SD DAILY PRN PRN Reason: Constipation Stop: 08/25/25 [...] 20 Meq Tab.Er.Prt) 20 meq PO BID [place] Stop: 08/25/25 20:59 Last Admin: 08/26/24 09:08 Dose: 20 meq Quetiapine Fumarate (Quetiapine Fumarate 25 Mg Tablet) 25 mg PO BID PRN PRN Reason: Agitation Stop: 08/25/25 20:59 Quetiapine Fumarate (Quetiapine Fumarate 25 Mg Tablet) 25 mg PO QHS [place] Stop: 08/25/25 21:59 Last Admin: 08/25/24 21:27 Dose: 25 mg Rasagiline (Rasagiline 1 Mg Tablet) 1 mg PO DAILY [place] Stop: 08/26/25 08:59 Last Admin: 08/26/24 09:09 Dose: 1 mg Ropinirole HCl (Ropinirole 0.25 Mg Tablet) 0.25 mg PO QHS [place] Stop: 08/25/25 21:59 Last Admin: 08/25/24 21:27 [...] 10 Ml Syringe) 10 ml IV-PUSH Q8H [facility] Stop: 08/25/25 21:59 Last Admin: 08/26/24 05:41 Dose: 10 ml Vitamin D (Cholecalciferol 125 Mcg (5,000 Units) Capsule) 125 mcg PO DAILY [facility] Stop: 08/26/25 08:59 Last Admin: 08/26/24 09:06 Dose: 125 mcg Zinc Gluconate (Zinc Gluconate 50 Mg Tablet) 50 mg PO DAILY [facility] Stop: 08/26/25 08:59 Last Admin: 08/26/24 09:06 [...] % (Auto) N/A Lymph % (Auto) N/A Beau[place] % (Auto) N/A Eos % (Auto) N/A Baso % (Auto) N/A Nucleat RBC Rel Count N/A Neut # (Auto) N/A Lymph # (Auto) N/A Beau[place] # (Auto) N/A Eos # (Auto) N/A [...] safe cognitively. Anticipated interventions: Physician management, PT, OT,COOKER MECHANIC Dietitian, Rehab Nursing -Therapy Functional Outcome/Goal: Patient [...] additional therapy on as needed basis. Comments: COOKER MECHANIC to evaluate and treat patient?s cognition, language and communication skills, assess swallow function. Other: Dietitian, Rehab nursing, Wound, P&O, Neuropsychology as needed RATIONALE FOR IRF ADMISSION: Patient has both medical and functional complexities that require 24 hour daily monitoring and intervention from [facility]et as well as other consulting physicians including internal medicine as well as 24 hour daily utility mechanic nursing - for medical safe / optimal management. Patient requires interdisciplinary therapy team rehabilitation care including OT, PT, COOKER MECHANIC, SW, Psychology, Rehab Nursing, requires and can [...] female who presents to [facility] IRF due to multifactorial functional decline in the setting of acute UTI with metabolic encephalopathy in the setting of Parkinsons Disease. She has continued impaired mobility and impaired independence with ADLs and IADLs requiring PT/OT/COOKER MECHANIC 5-7 days/week 3 hours/day to maximize safety [...] equipment to enhance the patient's a functional lutheran -Encourage deep breathing exercises and incentive spirometry [...] chart, including current orders, allied health and apple solutions consultant notes, labs/imaging and performed moss elements of exam and I formulated the planof care and facilitated the medical decision making. I completed a substantive portion of this encounter, the medical decision makingportion of this note in its entirety, including Allied health note review, nursing note review, apple solutions consultant note review, discussion with nursing and case management, and more than 50% of my time was spent on counseling and coordination of care, time spent 75 minutes Documented By: Pa Neil MD 1024 Signed By: <Electronically signed by Pa Neil MD> 08/26/24 [facility] Work Phone: [phone]) 803-122203-18-2025 [place] [address] Physiatry (Rehab) H&P Signed Patient: Judith Land MR#: [id number] : 1945 Acct:[id number] Age/Sex: 79 / F Adm Date: 5 Loc: Room: [address] [place] [address] Type: ADM IN Attending Dr: Pa Neil [...] worse over the past month. [facility] Medical History RLS (restless legs syndrome) CAD [...] 100 Mg Capsule) 100 mg PO TID [facility] Stop: 08/25/25 21:59 Last Admin: 08/26/24 09:05 Dose: 100 mg Amlodipine Besylate (Amlodipine 5 Mg Tablet) 5 mg PO DAILY [facility] Stop: 08/26/25 08:59 Last Admin: 08/26/24 09:08 Dose: 5 mg Ascorbic Acid (Ascorbic Acid 500 Mg Tablet) 1,000 mg PO DAILY [facility] Stop: 08/26/25 08:59 Last Admin: 08/26/24 09:08 Dose: 1,000 mg Aspirin (Aspirin 81 Mg Tab.Chew) 81 mg PO DAILY [facility] Stop: 08/26/25 08:59 Last Admin: 08/26/24 09:05 Dose: 81 mg Bisacodyl (Bisacodyl 10 Mg Supp.Rect) 10 mg SD DAILY PRN PRN Reason: Constipation Stop: 08/25/25 15:47 Carbidopa/Levodopa (Carbidopa/Levodopa 10-100 Mg 1 Tab Tablet) 1 tab PO TID [facility] Stop: 08/25/25 21:59 Last Admin: 08/26/24 09:05 Dose: 1 tab Docusate Sodium (Docusate 100 Mg Capsule) 100 mg PO BID PRN PRN Reason: Constipation Stop: 08/25/25 15:47 Docusate Sodium (Docusate Enema 283 Mg/5 Ml Enema) 283 mg SD DAILY PRN PRN Reason: Constipation Stop: 08/25/25 [...] 20 Meq Tab.Er.Prt) 20 meq PO BID [facility] Stop: 08/25/25 20:59 Last Admin: 08/26/24 09:08 Dose: 20 meq Quetiapine Fumarate (Quetiapine Fumarate 25 Mg Tablet) 25 mg PO BID PRN PRN Reason: Agitation Stop: 08/25/25 20:59 Quetiapine Fumarate (Quetiapine Fumarate 25 Mg Tablet) 25 mg PO QHS [facility] Stop: 08/25/25 21:59 Last Admin: 08/25/24 21:27 Dose: 25 mg Rasagiline (Rasagiline 1 Mg Tablet) 1 mg PO DAILY [facility] Stop: 08/26/25 08:59 Last Admin: 08/26/24 09:09 Dose: 1 mg Ropinirole HCl (Ropinirole 0.25 Mg Tablet) 0.25 mg PO QHS [facility] Stop: 08/25/25 21:59 Last Admin: 08/25/24 21:27 [...] (5,000 Units) Capsule) 125 mcg PO DAILY [facility] Stop: 08/26/25 08:59 Last Admin: 08/26/24 09:06 [...] % (Auto) N/A Lymph % (Auto) N/A Beau[place] % (Auto) N/A Eos % (Auto) N/A Baso % (Auto) N/A Nucleat RBC Rel Count N/A Neut # (Auto) N/A Lymph # (Auto) N/A [place] # (Auto) N/A Eos # (Auto) N/A [...] safe cognitively. Anticipated interventions: Physician management, PT, OT,COOKER MECHANIC Dietitian, Rehab Nursing -Therapy Functional Outcome/Goal: Patient [...] additional therapy on as needed basis. Comments: COOKER MECHANIC to evaluate and treat patient?s cognition, language and communication skills, assess swallow function. Other: Dietitian, Rehab nursing, Wound, P&O, Neuropsychology as needed RATIONALE FOR IRF ADMISSION: Patient has both medical and functional complexities that require 24 hour daily monitoring and intervention from [employer] as well as other consulting physicians including internal medicine as well as 24 hour daily utility mechanic nursing - for medical safe / optimal manageme nt. Patient requires interdisciplinary therapy team rehabilitation care including OT, PT, COOKER MECHANIC, SW, Psychology, Rehab Nursing, requires and can [...] female who presents to [facility] IRF due to multifactorial functional decline in the setting of acute UTI with metabolic encephalopathy in the setting ofParkinsons Disease. She has continued impaired mobility and impaired independence with ADLs and IADLs requiring PT/OT/COOKER MECHANIC 5-7 days/week 3 hours/day to maximize safety [...] equipment to enhance the patient's a functional lutheran -Encourage deep breathing exercises and incentive spirometry [...] chart, including current orders, allied health and apple solutions consultant notes, labs/imaging and performed moss elements of exam and I formulatedthe planof care and facilitated the medical decision making. I completed a substantive portion of this encounter, the medical decision makingportion of this note in its entirety, including Allied health note review, nursing note review, apple solutions consultant note review,discussion with nursing and case management, and more than 50% of my time was spent on counseling and coordination of care, time spent 75 minutes Documented By: Pa Neil MD 1024 Signed By: 08/26/[address] [place], [place] [id number] Discharge summary Author Mariajose Alfred [facility] Note Date/Time August 25, 2024 12: 22pm [facility] [address] [place] [address] Discharge Summary Signed Patient: Judith Land MR#: [id number] : 1945 Acct:[id number] Age/Sex: 79 / F Adm Date: 5 Loc: Room: [address] [place] [address]: Mariajose Alfred MD Copies to: [...] Consult to Physiatry Routine Comment: Consulting Provider: [facility] - [facility] - Rehab Reason For Exam: Rehab [...] Discharge Plan Discharge Plan Patient Disposition: Rehab [facility] Activity: Ambulate as Tolerated Diet: Regular Additional [...] PO DAILY Follow Up: [facility] [place] [Outside] (Please arrange a follow-up appointment once discharged from rehab. ) Kavon Sams MD [Primary Care Provider] - (Please arrange a follow-up appointment once discharged from rehab. ) Continuity of Care Document Health Concerns: A [facility] screening has identified you as FRAIL or [...] Four Ways to Beat the Frailty Risk https://www.[facility].org/health/unhlkjhk-skk-msjjjhqtea/phsd-eloqxg-xozy- gxsb-qp-jsjy-tjn-rjqdtmu-kxxc Exam Physical Exam Vital Signs: Temp Pulse [...] <Electronically signed by Mariajose Alfred MD> 08/25/[address] [place] [address] Work Phone: [phone]) 287-823103-17-2025 [place] [address] Discharge Summary Signed Patient: Judith Land MR#: [id number] : 1945 Acct:[id number] Age/Sex: 79 / F Adm Date: 5 Loc: 3T Room: [address] [place] [address]: Mariajose Alfred MD Copies to: [...] Discharge Plan Discharge Plan Patient Disposition: Rehab [facility] Activity: Ambulate as Tolerated Diet: Regular Additional [...] Continuity of Care Document Health Concerns: A [facility] screening has identified you as FRAIL or [...] Strong:Four Ways to Beat the Frailty Risk https://www.[facility].org/health/xpdixpxp-ahq-tufkkilyjt/st nw-wemwzu-xvpr- bcjk-dx-mvms-lzf-dpgnboq-iuni Exam Physical Exam Vital Signs: Temp Pulse [...] 08/25/24 12 15 Signed By: 08/25/24 1222 [facility]03-16-2025 Progress note Author Mariajose Alfred [facility] Note Date/Time August 24, 2024 12: 10pm [facility] [address] [place] [address] Hospitalist Progress Note Signed Patient: Judith Land MR#: [id number] : 1945 Acct:[id number] Age/Sex: 79 / F Adm Date: 5 Loc: Room: [address] [place] [address] Type: ADM IN Attending Dr: Mariajose Alfred [...] place (said [place]), she lives in [place]. Family members come and spend timewith her [...] 07:25 08/24/24 07:25 08/24/24 07:25 08/24/24 07:25 Narrative: Const General: cooperative HEENT Normal [...] Lactated Ringers IV 08/25/24 10:09 75 mls/hr .[id number] [facility] Administration Lisinopril 20 mg 08/22/24 09:00 [...] <Electronically signed by Mariajose Alfred MD> 08/24/24 8582 [facility] Work Phone: 1(305) 699-636103-16-2025 [facility] [place] [address] Hospitalist Progress Note Signed Patient: Judith Land MR#: [id number] : 1945 Acct:[id number] Age/Sex: 79 / F Adm Date: 5 Loc: 3T Room: [address] [place] [address] Type: ADM IN Attending Dr: Mariajose Alfred [...] not sure much about the place (said [place]), she lives in [place]. Family members come and spend timewith her [...] 07:25 08/24/24 07:25 08/24/24 07:25 08/24/24 07:25 Narrative: Const General: cooperative HEENT Normal [...] Lactated Ringers IV 08/25/24 10:09 75 mls/hr .[id number] [facility] Administration Lisinopril 20 mg 08/22/24 09:00 [...] MD 08/24/24 10 36 Signed By: 08/24/24 1210 [facility]03-15-2025 Progress note Author Mariajose Alfred [facility] Note Date/Time August 23, 2024 9:2 6pm [facility] [address] [place] [address] Hospitalist Progress Note Signed Patient: Judith Land MR#: [id number] : 1945 Acct:[id number] Age/Sex: 79 / F Adm Date: 5 Loc: Room: [address] [place] [address] Type: ADM IN Attending Dr: Mariajose Alfred [...] 08/23/24 12:33 08/23/24 12:33 08/23/24 12:33 08/23/24 12:08/23/24 12:33 Const General: cooperative, no acute distress [...] By: <Electronically signed by Mariajose Alfred MD> 08/23/242125 [facility] Work Phone: 1(912) 717-549403-15-2025 [place] [address] Hospitalist Progress Note Signed Patient: Judith Land MR#: [id number] : 1945 Acct:[id number] Age/Sex: 79 / F Adm Date: 5 Loc: Room: [address] [place] [address] Type: ADM IN Attending Dr: Mariajose Alfred [...] Alfred MD 08/23/24 12 51 Signed By: 08/23/242125 [facility]03-15-2025 Progress note Author Baljeet Rao [facility] Note Date/Time August 23, 2024 9:4 2am [facility] [address] [place] [address] Neurology Progress Note Signed Patient: Judith Land#: [id number] : 1945 Acct:[id number] Age/Sex: 79 / F Adm Date: 5 Loc: 3T Room: [address] [place] [address] Type: ADM IN Attending Dr: Mariajose Alfred [...] consultation. Documented By: Baljeet Rao DO 5 4814 Signed By: <Electronically signed by Baljeet Rao DO> 08/23/24 0942 [facility] Work Phone: [phone]) 731-857503-15-[address] [address] Neurology Progress Note Signed Patient: Judith Land MR#: [id number] : 1945 Acct:[id number] Age/Sex: 79 / F Adm Date: 5 Loc: 3T Room: [address] [place] [address] Type: ADM IN Attending Dr: Mariajose Alfred [...] DO 5 0853 Signed By: 08/23/24 0942 [facility]03-15-2025 Consult note Author Ramsey Monroe [facility] Note Date/Time August 23, 2024 7:3 1am [facility] [address] [place] [address] Physiatry (Rehab) Consult Note Signed Patient: Judith Land MR#: [id number] : 1945 Acct:[id number] Age/Sex: 79 / F Adm Date: 5 Loc: Room: 2A3492-5 Type: ADM IN Attending Dr: Mariajose Alfred [...] noted below or in HPI [facility] Medical History (Updated 08/22/24 @ 18:15 by [...] chart, including current orders, allied health and apple solutions consultant notes, labs/imaging and performed moss elements of exam and I formulated the plan of care and facilitated the medical decision making. I completed a substantive portion of this encounter, the medical decision makingportion of this note in its entirety, including Allied health note review, nursing note review, apple solutions consultant note review, discussion with nursing and case management, and more than 50% of my time was spent on counseling and coordination of care, time spent 40 minutes Documented By: Ramsey Monroe MD 08/22/24 8832 Signed By: <Electronically signed by Ramsey Monroe MD> 08/23/24 0731 [facility] Work Phone: [phone]) 756-446903-15-2025 [place] [address] Physiatry (Rehab) Consult Note Signed Patient: Judith Land MR#: [id number] : 1945 Acct:[id number] Age/Sex: 79 / F Adm Date: 5 Loc: 3T Room: [address] [place] [address] Type: ADM IN Attending Dr: Mariajose Alfred [...] noted below or in HPI [facility] Medical History (Updated 08/22/24 @ 18:15 by [...] chart, including current orders, allied health and apple solutions consultant notes, labs/imaging and performed moss elements of exam and I formulated the plan of care and facilitated the medical decision making. I completed a substantive portion of this encounter, the medical decision makingportion of this note in its entirety, including Allied health note review, nursing note review, apple solutions consultant note review,discussion with nursing and case management, and more than 50% of my time was spent on counseling and coordination of care, time spent 40 minutes Documented By: Ramsey Monroe MD 08/22/24 1734 Signed By: 08/23/24 0731 [facility]03-14-2025 Consult note Author Tony Fuentes [facility] Note Date/Time August 22, 2024 6:1 5pm [facility] [address] [place] [address] Neurology Consult Note Signed Patient: Judith Land MR#: [id number] : 1945 Acct:[id number] Age/Sex: 79 / F Adm Date: 5 Loc: 3T Room: [address] [place] [address] Type: ADM IN Attending Dr: Mariajose Alfred MD Copies to: DO Kavon Cramer MD Obaydah M Daromar, MD~ HPI Consult Date: 08/22/24 Floor Hand: Tony Fuentes DO [facility] Medical History (Updated 08/22/24 @ 18:15 by [...] Andrew Henson M.D.08/20/2024 9:48 PM Dictation Location: [place] [address] Therapy Recommendations Therapy Recommendations: OT Recommendations OT [...] <Electronically signed by Tony Fuentes DO> 08/22/24 7619 [facility] Work Phone: [phone]) 560-286303-14-2025 [place] [address] Neurology Consult Note Signed Patient: Judith Land MR#: [id number] : 1945 Acct:[id number] Age/Sex: 79 / F Adm Date: 5 Loc: 3T Room: [address] [place] [address] Type: ADM IN Attending Dr: Mariajose Alfred MD Copies to: DO Kavon Cramer MD Obaydah M Daromar, MD~ HPI Consult Date: 08/22/24 Floor Hand: Tony Fuentes DO [facility] Medical History (Updated 08/22/24 @ 18:15 by [...] Andrew Henson M.D.08/20/2024 9:48 PM Dictation Location: [place] [address] Therapy Recommendations Therapy Recommendations: OT Recommendations OT [...] Tony Fuentes DO 08/22/24 1235 Signed By: 08/22/24 1815 [facility]03-14-2025 Progress note Author Mariajose Alfred [facility] Note Date/Time August 22, 2024 2:5 6pm [facility] [address] [place] [address] Hospitalist Progress Note Signed Patient: Judith Land MR#: [id number] : 1945 Acct:[id number] Age/Sex: 79 / F Adm Date: 5 Loc: 3T Room: [address] [place] [address] Type: ADM IN Attending Dr: Mariajose Alfred MD Copies to: ~ Date of Service: 08/22/2024 Subjective Subjective Narrative: Patient was seen and examined at bedside. She was moved to room [facility]0 for a private room. Patient was confused, [...] <Electronically signed by Mariajose Alfred MD> 08/22/[address] [place] [address] Work Phone: [phone]) 380-973303-14-2025 [place] [address] Hospitalist Progress Note Signed Patient: Judith Land MR#: [id number] : 1945 Acct:[id number] Age/Sex: 79 / F Adm Date: 5 Loc: Room: [address] [place] [address] Type: ADM IN Attending Dr: Mariajose Alfred MD Copies to: ~ Date of Service: 08/22/2024 Subjective Subjective Narrative: Patient was seen and examined at bedside. She was moved to room [facility]0 for a private room. Patient was confused, [...] 08/22/24 11 36 Signed By: 08/22/24 1456 [facility]03-13-2025 Progress note Author Mariajose Alfred [facility] Note Date/Time August 21, 2024 4:0 8pm [facility] [address] [place] [address] Hospitalist Progress Note Signed Patient: Judith Land MR#: [id number] : 1945 Acct:[id number] Age/Sex: 79 / F Adm Date: 5 Loc: 3T Room: [address] [place] [address] Type: ADM IN Attending Dr: Mariajose Alfred [...] Tab.Chew PO 08/21/25 08:59 81 mg DAILY [facility] Administration Carbidopa/Levodopa 1 tab 08/21/24 09:00 08/21/24 [...] 1,000 Ml IV 08/21/24 14:19 75 mls/hr .[id number] [facility] Administration Cefepime HCl 1 gm in [...] Ortega MD Documented By: Mariajose Alfred MD 08/21/2404 28 Signed By: <Electronically signed by Mariajose Alfred MD> 08/21/24 4415 [facility] Work Phone: [phone]) 431-171403-13-2025 [place] [id number] Hospitalist Progress Note Signed Patient: Judith Land MR#: [id number] : 1945 Acct:[id number] Age/Sex: 79 / F Adm Date: 03/12/2 5 Loc: 3T Room: [id number] Type: ADM IN Attending Dr: Mariajose Alfred [...] 1,000 Ml IV 08/21/24 14:19 75 mls/hr .[id number] [facility] Administration Cefepime HCl 1 gm in [...] Ortega MD Documented By: Mariajose Alfred MD 08/21/2404 28 Signed By: 08/21/24 1608 [facility]03-13-2025 History and physical note Author Ebony Scott [facility] Note Date/Time August 21, 2024 6:1 1am [facility] [address] [place] [address] Hospitalist H&P Signed Patient: Judith Land MR#: [id number] : 1945 Acct:[id number] Age/Sex: 79 / F Adm Date: 5 Loc: Room: [address] [place] [address] Type: ADM IN Attending Dr: Lauro Garvey MD Copies to: MD Kavon Potter MD Paula G Smith, [employer]MENT [employer]~ HPI DATE OF EXAMINATION: 08/20/24 CHIEF COMPLAINT: UTI HISTORY OF PRESENT ILLNESS: Ms. Land is a 79-year-old female with a PMH of Parkinson disease, HTN, HLD, CAD, anxiety, RLS, chronic pain that presented to the emergency room [facility]. She has been on 3 antibiotics, Cipro, [...] will be admitted as inpatient to the [facility] telemetry floor. Review of Systems Review of Systems Review of systems: A 10 point review of systems was obtained, negative unless noted in the HPI or below. [facility] Medical History (Updated 08/21/24 @ 00:36 by [...] 08/20/24 21:19 MCH 31.4 pg (24.7-34.3) 08/20/24 21: MCHC 34.1 g/dL (32.0-35.0) 08/20/24 21:19 RDW 14.6 % (11.9-15.3) 08/20/24 21:19 Plt Count 314 x10E3/uL (150-450) 08/20/24 21:19 MPV 9.4 fl (6.3-10.7) 08/20/24 21:19 Neut % (Auto) 48.3 % (.) 08/20/24 21:19 Lymph % (Auto) 34.8 % (.) 08/20/24 21:19 Beaufort % (Auto) 13.1 % (.) 08/20/24 21:19 Eos % (Auto) 2.1 % (.) 08/20/24 21:19 Baso % (Auto) 1.7 % (.) 08/20/24 21:19 Nucleat RBC Rel Count 0.2 /100 WBC (0-0.5) 08/20/24 21:19 Neut # (Auto) 3.8 x10E3/uL (1.8-7.7) 08/20/24 21:19 Lymph # (Auto) 2.7 x10E3/uL (1.00-4.8) 08/20/24 21:19 Beau[place] # (Auto) 1.0 x10E3/uL (0.0-0.8) H 08/20/24 [...] 08/20/24 21: Albumin 4.4 gm/dL (3.5-5.7) 08/20/24 21:19 Globulin 2.4 gm/dL 08/20/24 21:19 Albumin/Globulin Ratio 1.8 08/20/24 21:19 Urine Color Light-yellow (Yellow) 08/20/24 21:36 Urine Appearance Cloudy (Clear) A 08/20/24 21:36 Urine pH 6.0 (5.0-9.0) 08/20/24 21:36 Ur Specific St[place]ett 1.014 (1.001-1.030) 08/20/24 21:36 Urine Protein Trace [...] Plan ANTONIO?current creatinine 1.43, spoke with nursing mirror department supervisor at the [facility] who found last creatinine on 08/14/2024 of [...] 3 Documented By: Ebony Scott APRN 08/20/24 8019 Signed By: <Electronically signed by MIGUEL Scott> 08/21/24 0048 <Electronically signed by Lauro Garvey MD> 08/21/24 0611 [facility] Work Phone: 1(772) 483-435903-13-2025 [place] [address] Hospitalist H&P Signed Patient: Judith Land MR#: [id number] : 1945 Acct:[id number] Age/Sex: 79 / F Adm Date: 5 Loc: Room: [address] [place] [address] Type: ADM IN Attending Dr: Lauro Garvey MD Copies to: MD Kavon Potter MD Paula G Smith, APRN~ HPI DATE OF EXAMINATION: 08/20/24 CHIEF COMPLAINT: UTI HISTORY OF PRESENT ILLNESS: Ms. Land is a 79-year-old female with a PMH of Parkinson disease, HTN, HLD, CAD, anxiety, RLS, chronic pain [facility] She has been on 3 antibiotics, Cipro, [...] Pseudomonas aeruginosa. [facility]. She received 1 g of cefepime and 1 L saline bolus. She will be admitted as inpatient to the [facility] telemetry floor. Review of Systems Review of Systems Review of systems: A 10 point review of systems was obtained, negative unless noted in the HPI or below. [facility] Medical History (Updated 08/21/24 @ 00:36 by [...] 08/20/24 21:19 MCH 31.4 pg (24.7-34.3) 08/20/24 21: MCHC 34.1 g/dL (32.0-35.0) 08/20/24 21:19 RDW 14.6 % (11.9-15.3) 08/20/24 21:19 Plt Count 314 x10E3/uL (150-450) 08/20/24 21:19 MPV 9.4 fl (6.3-10.7) 08/20/24 21:19 Neut % (Auto) 48.3 % (.) 08/20/24 21:19 Lymph % (Auto) 34.8 % (.) 08/20/24 21:19 Beau[place] % (Auto) 13.1 % (.) 08/20/24 21:19 Eos % (Auto) 2.1 % (.) 08/20/24 21:19 Baso % (Auto) 1.7 % (.) 08/20/24 21: Nucleat RBC Rel Count 0.2 /100 WBC (0-0.5) 08/20/24 21:19 Neut # (Auto) 3.8 x10E3/uL (1.8-7.7) 08/20/24 21:19 Lymph # (Auto) 2.7 x10E3/uL (1.00-4.8) 08/20/24 21:19 [place] # (Auto) 1.0 x10E3/uL (0.0-0.8) H 08/20/24 [...] 21:19 Lactic Acid 0.9 mmol/L (0.5-1.9) 08/20/24 21: Calcium 11.5 mg/dL (8.6-10.3) H 08/20/24 21: Total Bilirubin 0.5 mg/dl (0.3-1.0) 08/20/24 21: AST 14 U/L (13-39) 08/20/24 21: ALT < 3 U/L (7-52) L 08/20/24 21:19 Alkaline Phosphatase 122 U/L (34-104) H 08/20/24 21:19 Total Protein 6.8 gm/dL (6.4-8.9) 08/20/24 21: Albumin 4.4 gm/dL (3.5-5.7) 08/20/24 21: Globulin 2.4 gm/dL 08/20/24 21: Albumin/Globulin Ratio 1.8 08/20/24 21: Urine Color Light-yellow (Yellow) 08/20/24 21:36 Urine Appearance Cloudy (Clear) A 08/20/24 21:36 Urine pH 6.0 (5.0-9.0) 08/20/24 21:36 Ur Specific [place] 1.014 (1.001-1.030) 08/20/24 21:36 Urine Protein Trace [...] Plan ANTONIO?current creatinine 1.43, spoke with nursing mirror department supervisor at the [facility] who found last creatinine on 08/14/2024 of [...] 3 Documented By: Ebony Scott APRN 08/20/24 2593 Signed By: 08/21/24 0048 08/21/24 0611 [facility]03-13-2025 Evaluation note* Diagnosis Onset Date Resolution Status [...] tract infection) acute August 20, 2024 10:48pm [facility] Work Phone: 1(356) 555-890603-13-2025 Evaluation note* Diagnosis Onset Date Resolution Status [...] infection) inacti ve August 25, 2024 3:46pm [facility] Work Phone: 1(626) 765-584903-05-2025 NoteCardiovascular Medicine [facility] SUBJECTIVE Chief Complaint Patient presents with Cardiac [...] chronic pain Paresthesia Primary insomnia Right hemiplegia (CMS/HCC) RLS (restless legs syndrome) Past Medical History: [...] , Rfl: cholecalciferol (Vitamin D-3) 50 MCG (1999 UT) tablet, Take 2,000 Units by mouth [...] Vitals reviewed. Constitutional: Appe (more content not included)...[facility]03-05-2025 NotePatient here for 6 mo follow up [...] tremors. All other systems reviewed and are negative.[facility] 08-12-2024 Evaluation + Plan noteExtracted from: Title:ANES Post-operative No te---General Serenity Author:Yulissa Dietrich MD Date:08/12/24 Plan Transfer/Discharge: Transfer/Discharge Discharge when meets criteria ( From PACU to floor ). Extracted from: Title:ANES Pre-operative Note Author:Yulissa Dietrich MD Date:08/12/24 Plan [place] [employer]esthesiologists (ASA) physical status classification: Class III. Anesthetic Preoperative Plan: Anesthesia General. [facility] [id number] Hospital Discharge instructions Patient Education 08/12/2024 10:26:35 Post Op Patient Instructions - FT (Custom) (CUSTOM) 08/08/2024 17:00:07 [place] - Home Care Instructions (Custom) [place], [place] [facility] OUTPATIENT SURGERY Home Care [...] not drive. Supa Owen, DO [facility] [address] [place] [address] [id number] Reviewed: 08 Follow Up Care 08/06/2024 11:32:31 With:Supa Owen DO, ORT Address: [address] [place] [phone]- When:08/25/2024 13:15:00 [facility] 03-04-2025 NoteProgress Note-Physician Patient: JUDITH LAND Age: 79 years Sex: Female : 1945 Associated Diagnoses: None Author: Serenity HERRERA, Yulissa Lott Postoperative Information Postoperative disposition: Postoperative disposition: To [...] meets criteria ( From PACU to floor ).[facility]Comment on above:Result Comment: Electronically Signed By: Serenity HERRERA, Yulissa Lott\.br\Date and Time Signed: 08/12/2510:30 [id number] NotePatient Education - Text [place], [place] [facility] OUTPATIENT SURGERY Home Care [...] not drive. Supa Owen DO [facility] [address] [place] [address] Reviewed: 09-16[facility]03-04-2025 NoteProgress Note-Physician Patient: JUDITH LAND Age: 79 years Sex: Female : 1945 Associated Diagnoses: None Author: Supa Owen DO Postoperative Information Procedure: L wrist ORIF Preoperative Diagnosis: L distal rad /ulna fx. Postoperative Diagnosis: same. Performed by: Lexie. Manager Customer Service: Ingrid. Specimens Removed: none. Prosthesis: Arthrex. . Estimated Blood Loss: 0 ml. Complications: None. Anesthesia type: General.[facility] HospitalComment on above:Result Comment: Electronically Signed By: Supa Owen DO\.br\Date and Time Signed: 08/12/24 10:14 [id number] NoteProgress Note-Physician Patient: JUDITH LAND Age: 79 [...] constipation, # 40 cap(s), Refills(s) 0, Pharmacy: [facility]/pharmacy #[id number], 167, cm, 08/07/24 6:28:00 EST, Height/Length Dosing, 54.2, kg, 256:28:00 EST, Weight Dosing Boyd 325 mg-5 mg oral tablet: See Instructions, for pain, 30 tab(s), Refill(s) 0, 1 - 2 po q4-6h prn pain Dx: S52.501D Duration: 7 days, [facility]/pharmacy #[id number], 167, cm, 08/07/24 6:28:00 EST, Height/Length [...] mg-20 mg Tab 1 tab(s), Oral, Daily Boyd 325 mg-5 mg oral tablet See Instructions, [...] All Problems H/O emphysema / SNOMED CT 4019898161 / Confirmed High cholesterol / SNOMED CT 83513175 / Confirmed Hydronephrosis, right / SNOMED CT 62642325 / Confirmed (more content not included)...[facility] HospitalComment on above:Result Comment: Electronically Signed By: Serenity HERRERA, Yulissa Lott\.br\Date and Time Signed: 08/12/2506:43 [id number] History of Present illness Narrative* Daniela David - 08/06/2024 10:30 AM EST Images [...] infection ongoing. She was at [facility] and the discussion was that it did not warrant admission to the hospital. They are planning [facility] after this visit [...] upon age and gender. Her neurologist from [facility] has deemed thisindividual safe in the [facility] hospital setting for surgery such as this. We did outline the fact that we will need to define her current disease and she is going to the [facility]. We did explain to the family that someone will need to let us know her medical fitness and ability to have surgery. Wewitata tentatively plan this into next week on 08-12-2024. We will have a window to perform this. If her illness does take her outside that window, the recommendation would clearly shift to conservative care. All questions are otherwise answered. Follow up letter sent to Dr. Sams. Supa Owen D.O. Cosigned by Supa Owen DO at 08/07/2024 10:39 AM EST documented in this encounterSSM [id number] Hospital Discharge instructions Patient Education 08/03/2024 21:46:36 [...] Treatment for this condition includes: Antibiotic medicine. Ldix-eot-lozcsdj medicines to treat discomfort. Drinking enough water [...] Follow these instructions at home: Medicines Take llvb-nlk-kgbxean and prescription medicines only as told by [...] provider. Document Revised: 01/02/2021 Document Reviewed: 01/07/2021 Nu3 Patient Education 2023 NitroPCR. Follow Up Care 08/03/2024 18:52:10 With:Kavon Sams Address: [address] [place] [phone]- Business (1) When:08/06/2024 21:45:46 Comments:Call the office [...] you develop any new or worsening symptoms. [facility] 02-23-2025 NoteED Patient Education Note Obstetrics and [...] this condition includes: ??? Antibiotic medicine. ??? Cyqt-wic-tqqizxt medicines to treat discomfort. ??? Drinking enough [...] these instructions at home: Medicines ??? Take hjec-mhq-vqttshd and prescription medicines only as told by [...] care provider. Make tracy (more content not included)...[facility]02-23-20[facility] Evaluation + Plan noteExtracted from: Title:ED Note Author:Demarco Beaver DO Date: Acute UTI (N39.0: Urinary tr act infection, site not specified) Orders: cephalexin, 500 mg = 1 cap(s), Cap, Oral, Once, Stop date 08/03/24 21:45:00 EST, STAT, Start date 08/03/24 21:45:00 EST, 08/03/24 21:45:00 EST cephalexin, 500 mg = 1 cap(s), Oral, q12hr, X 5 day(s), # 10 cap(s), Refills(s) 0, Pharmacy: [facility]/pharmacy #[id number], 167, cm, 08/03/24 19:04:00 EST, Height/Length Dosing, 54.2, kg, 08/03/24 19:04:00 EST, Weight Dosing Basic Metabolic Panel CBC w/ Auto Diff CT Head or Brain w/o Contrast ED Cardiac Monitoring eGFR Extra Blue Tube Routine Capillary Glucose POC UA with Cult Rflx Urine Culture Diagnostic Tests Pending * Urine Culture 08/03/24 [facility] 02-19-2025 Telephone encounter Note* Telephone Encounter - Gabbi Ennis - 07/30/2024 1:57 PM EST Form received via fax. Not really anything for RN's to complete. Sent via [employer] to Cherie. [place] 45505-19-2025 Miscellaneous Notes* Telephone Encounter - Gabbi Ennis - 07/30/2024 1:57 PM EST Form received via fax. Not really anything for RN's to complete. Sent via [employer] to Cherie. * Telephone Encounter - Gabbi Ennis - 07/30/2024 1:[address] Owen office phoned - patient fell an broke her ulna and will need surgery. They would like to discuss with Cherie from PD standpoint if ok for surgery. [phone] She will also fax over a generic form for completion. Can either call or complete form. documented in this encounterA[facility]02-[facility]-2025 Telephone encounter Note * Telephone Encounter - Gabbi Ennis - 07/30/2024 1:[address] Owen office phoned - patient fell an broke her ulna and will need surgery. They would like to discuss with Cherie from PD standpoint if ok for surgery. [phone] She will also fax over a generic form for completion. Can either call or complete form. [facility]02-19-20[facility] History of Present illness Narrative* Daniela David - 07/30/2024 8:00 AM EST Images [...] Diagnosis Date COPD (chronic obstructive pulmonary disease) ([facility]) H/O splenectomy Hypertension ([facility]/HCC) Parkinson disease ([facility]) Recurrent UTI Ruptured spleen PAST SURGICAL HISTORY: [...] She has now been referred to the [facility] on this. We will go ahead and [...] 08/03/2024 4:35 PM EST documented in this encounterSSM [id number] Hospital Discharge instructions Follow Up Care 07/26/2024 15:54:15 With:Kavon Sams Address: [address] [place] [address] Business (1) When:Within 3 Day(s) [facility] 02-15-2025 Evaluation + Plan noteExtracted from: Title:ED Note [...] BID, # 14 tab(s), Refills(s) 0, Pharmacy: [facility]/pharmacy #[id number], 167, cm, 07/26/24 16:07:00 EST, Height/Length [...] Diagnostic Tests Pending * Urine Culture 07/26/24 [facility] 02-13-2025 Hospital Discharge instructions Patient Education [...] by your health care provider. Medicines Take hukg-bzc-bnfyndv and prescription medicines only as told by your health care provider. Ask your health care provider if the medicine prescribed to you: ?Requires you to avoid driving or using machinery. ?Can cause constipation. You may need to take these actions to prevent or treat constipation: ?Drink enough fluid to keep your urine pale yellow. ?Take gmuw-vxx-cjwxxtn or prescription medicines. ?Eat foods that are [...] provider. Document Revised: 09/06/2020 Document Reviewed: 09/06/2020 Nu3 Patient Education 2023 NitroPCR. 07/24/2024 21:34:14 Cast or Splint Care, Adult [...] on part of yourbody. General instructions Take gsbx-reb-orlmhoe and prescription medicines only as told by [...] provider. Document Revised: 11/22/2021 Document Reviewed: 11/22/2021 Nu3 Patient Education 2023 NitroPCR. Follow Up Care 07/24/2024 18:45:49 With:Kavon Sams Address: [address] [place], [place] [phone]- Business (1) When:07/27/2024 21:43:51 Comments:Call the office [...] new or worsening symptoms. With:Supa Owen Address: [address] [place] [address]- Business (1) When:07/27/2024 21:32:22 Comments:Call office tomorrow to arrange for short-term follow-up for your distal radius fracture.Take pain medication as prescribed. [facility] 02-13-2025 NoteED Patient Education Note Orthopedics [...] your health care provider. Medicines ??? Take fnxa-pbj-tvpyayc and prescription medicines only as told by your health care provider. ??? Ask your health care provider if the medicine prescribed to you: ? Requires you to avoid driving or using machinery. ? Can cause constipation. You may need to take these actions to prevent or treat constipation: ? Drink enough fluid to keep your urine (more content not included)...[facility]02-13-2025 Evaluation + Plan noteExtracted from: Title:ED Note Author:Demarco Beaver DO Date: Accidental fall (W19.XXXA: U nspecified fall, initial encounter) Wrist injury (S69.90XA: Unspecified injury of unspecified wrist, hand and finger(s), initial encounter) Orders: CT Head or Brain w/o Contrast CT Spine Cervical w/o Contrast ED Cardiac Monitoring NPO Diet Oxygen Therapy Pulse Oximetry Continuous Saline Lock Insert XR Wrist 3+ Views Right [facility] [id number] Instructions* Patient Instructions* Cherie Cedeno PA-C - [...] Parkinson's Disease Exercise Class at your local [facility] Voice - The Parkinson Voice Project makes daily videos with voice exercises to help keep your voiceloud and clear. This is free on [employer] Handwriting - take a look at Fat Pens for tremor. This often will help people write easier I would like to see you back in about 7 months, before next winter. If you need assistance with scheduling, please call [phone], option 2 to speak with one of our scheduling team members. Movement Disorders Medication Schedule: Medications breakfast lunch bedtime ropinerole 0.25mg 1 azilect 1mg 1 sinemet CR 25/100mg 1 1 1 amantadine 100 mg 1 1 1 Return at or around: 01/13/25 If there are any concerns before your next visit, please call or you can send a message through Seclore. You can also now schedule and select appointments through Se[employer]. Cherie Cedeno PA-C documented in this encounterAcmc Healthcare System02-05-2025 History of Present illness Narrative* Cherie Ceedno PA-C - 07/16/2024 3:00 PM EST CNR-MOVEMENT [...] Parkinson's Disease since 2014. She presents to [facility] spring for care after many [...] possibility of Parkinson's disease class at the [facility]. The following are the current problems [...] Parkinson's Disease Exercise Class at your local [facility] Voice - The Parkinson Voice Project makes daily videos with voice exercises to help keep your voiceloud and clear. This is free on [employer] Handwriting - take a look at [employer] Pens for tremor. This often will help people write easier I would like to see you back in about 7 months, before next winter. If you need assistance with scheduling, please call [phone], option 2 to speak with one of our scheduling team members. Interested in clinical research? Not currently Updated Movement Disorders Medication Schedule: Medications breakfast lunch bedtime ropinerole 0.25mg 1 azilect 1mg 1 sinemet CR 25/100mg 1 1 1 amantadine 100 mg 1 1 1 Return at or around: 01/13/25 Level of service : 98968 (40-68 min). Time spent 43 min on the day of service, which included preparing to see the patient, gfja-gk-perm patient care, completing clinical documentation, obtaining and/or [...] because declined all tablets documented in this encounterAcmc Healthcare System02-05-2025 NoteHNO ID: [id number] Author: CHERIE CEDENO PA-C Service: ? Author Type: Physician Manager Customer Service Type: Progress Notes Filed: 07/16/2024 17:27 Note [...] one or two (more content not included)...[facility]02-05-2025 NoteHNO ID: [id number] Author: GA BOB MA Service: ? Author Type: Strategic Communications Manager Type: Progress Notes Filed: 07/16/2024 17:27 Note Text: Reason for WROTF Tablet to not get completed: Patient refused because declined all tabletsCleveland Clinic [facility]11-11-2024 History of Present illness Narrative* Cathie Gill NP - 04/21/2024 8:40 AM EST Images from the original note were not included. Chief Complaint Patient presents with Parkinson's Disease Insomnia Carpal Tunnel Subjective Judith Susan Land, 79 y.o., female Patient presents today for a follow up to Parkinson's. She presents with a family member, Jaimee. She admits ED visit at [facility] recently for fall, states she was [...] wrist extensors , wrist flexor 5/5 , snow plow tractor operator strength 4/5. LUE Strength deltoid , biceps , triceps , wrist extensors , wrist flexor , snow plow tractor operator strength 5/5. RLE Strength illopsoas, quadriceps, [...] knee reflex 2+. Dangelo's Sign negative. Coordination: Npgwmd-fi-dfuy testing is normal Gait: Normal Review and summary of old records: Cardio note (Dr. Joe Luke) on 12/20/23: Abnormal stress test with EKG changes but no perfusion defects as per report. No cardiac complaints. COPD, hypertension, hyperlipidemia. Again discussed invasive ischemic evaluation with patient. Patient understands risks and declined evaluation. Continue aspirin, statin, beta-ayo. Follow-up in 3 months MRI of the brain with and without contrast at [facility] on 08/14/2023: No acute intracranial abnormality. No [...] the brain with and without contrast at [facility], on 05/15/23: no acute intracranial pathology or [...] whether dyskinesia present, unspecified whether manifestations fluctuate ([facility]) It is my impression the patient has [...] some improvement. She is now following with [facility] movement clinic and is now taking Sinemet CR along with amantadine with substantial improvement in her symptoms. PLAN: - Continue follow up with [facility] movement clinic as per their recommendations. - [...] concerns along with ECHO results (Dr. Joe Luke). 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 She admits to previous use [...] 04/21/2024 10:10 AM EST documented in this encounterSSM [id number] History of Present illness Narrative* Cherie Cedeno [...] some every day Dry mouth - please package pick up some OTC spray to help Please come [...] that she is going to travel to [place] to see her friends, which prior to [...] Parkinson's Disease since 2014. She presents to [facility] spring for care after many [...] or around: 11/21/24 Level of service : 17007 (40-54 min). Time spent 41 min on the day of service, which included preparing to see the patient, xuaz-qb-xjkd patient care, completing clinical documentation, obtaining and/or [...] of stress/struggling or is interrupted by their supervisor rolling room. documented in this encounterAcmc Healthcare System09-13-2024 NoteHNO ID: [id number] Author: CHERIE CEDENO PA-C Service: ? Author Type: Physician Manager Customer Service Type: Progress Notes Filed: 02/22/2024 16:46 Note [...] some every day Dry mouth - please package pick up some OTC spray to help Please come [...] that she is going to travel to [place] to see her friends, which prior to [...] mild slowing, c) (more content not included)...[facility]09-13-2024 NoteHNO ID: [id number] Author: GA BOB MA Service: ? Author Type: Strategic Communications Manager Type: Progress Notes Filed: 02/22/2024 16:46 Note Text: Reason for WROTF Tablet to not get completed: Patient wishes to abort because of stress/struggling or is interrupted by their supervisor rolling room.[facility]08-05-2024 Instructions* Patient Instructions* Cherie Cedeno PA-C - [...] some every day Dry mouth - please package pick up some OTC spray to help Please come [...] or you can send a message through Se[employer]ore. You can also now schedule and select appointments through Se[employer]. Cherie Cedeno PA-C documented in this encounterAcmc Healthcare System08-05-2024 History of Present illness Narrative* Cherie Cedeno [...] the amplitude decrements starting after the 1st fyjw-ohc-udkii sequence. Arm Movements Right 1-Slight. a) the [...] Parkinson's Disease since 2014. She presents to [facility] spring for care after many [...] some every day Dry mouth - please package pick up some OTC spray to help Please come back to see me February 21 at 3:00PM Interested in clinical research? Not currently Updated Movement Disorders Medication Schedule: Medications breakfast lunch bedtime ropinerole 0.25mg 1 azilect 1mg 1 sinemet CR 25/100mg 1 1 1 amantadine 100 mg 1 Return at or around: 02/14/24 Level of service : 29186 + 2 units 66312 ( > 55 min, [id number] for each 15 min > 40). Time spent 75 min on the day of service, which included preparing to see the patient, fsos-lj-wirl patient care, completing clinical documentation, obtaining and/or [...] Sincerely, Cherie Cedeno PA-C documented in this encounterAcmc Healthcare System08-05-2024 NoteHNO ID: [id number] Author: CHERIE CEDENO PA-C Service: ? Author Type: Physician Manager Customer Service Type: Progress Notes Filed: 01/14/2024 20:44 Note [...] the amplitude decrement (more content not included)...[facility]05-30-2024 Note* Addendum Note - David Valente MD - 11/08/2023 3:27 PM EDTAddended by: DAVID VALENTE on: 11/08/2023 03:27 PM Modules accepted: Orders [facility]05-30-2024 Miscellaneous Notes* Addendum Note - David Valente MD - 11/08/2023 3:27 PM EDTAddended by: DAVID VALENTE on: 11/08/2023 03:27 PM Modules accepted: Orders * Addendum Note - Dulec Melgar RN - 11/08/2023 2:48 PM EDTAddended by: DULCE MELGAR on: 11/08/2023 02:48 PM Modules accepted: Orders * Telephone Encounter - Dluce Melgar RN - 11/08/2023 2:44 PM EDT [...] they have returned. * [facility] 11:52 AM EDT Jaimee (pt' granddaughter) called to report this week pt's back to experiencing jerking movement. Pt started Amantadine 100 mg week of October 24 and first week medication helped dyskinesia. [phone] 09/13/23 DARRYL w/Dr. Valente documented in this encounterAcmc Healthcare System05-30-2024 Note* Addendum Note - Dulce Melgar RN - 11/08/2023 2:48 PM EDTAddended by: DULCE MELGAR on: 11/08/2023 02:48 PM Modules accepted: Orders [facility]05-30-2024 Telephone encounter Note* Telephone Encounter - Dulce Melgar RN - 11/08/2023 2:44 PM EDT Spoke with Jaimee. Instructed her to increase the Amantadine to 100mg BID (to be taken with the first 2 daily doses of Sinemet). Jaimee verbalized understanding and is in agreement with POC. [facility]05-30-20[facility] Telephone encounter Note* Telephone Encounter - David Valente MD - 11/08/2023 2:34 PM EDT Ok, if no side effects can she please increase to 100mg in morning and 100mg at noon? I will updatethe prescription. [facility]05-30-2024 Telephone encounter Note* Telephone Encounter - Dulce Melgar RN - 11/08/2023 12:53 PM EDT Spoke with Jaimee. Reports that pt is experiencing right sided dyskinesia (arm/shoulder). Pt has been taking 100mg Amantadine daily. She initially had relief from the dyskinesia but now they have returned. [facility]05-30-2024 Telephone encounter Note* [facility] 11/08/2023 11:52 AM EDT Jaimee (pt' granddaughter) called to report this week pt's back to experiencing jerking movement. Pt started Amantadine 100 mg week of October 24 and first week medication helped dyskinesia. [phone] 09/13/23 DARRYL w/Dr. Valente [facility]05-08-2024 NoteHNO ID: [id number] Author: HIRAL ORTEGA APRN.CORPORATE SAFETY DIRECTOR Service: ? Author Type: Nurse Practitioner Type: [...] 100 mg 1 Level of service : 23492 (20-29 min). Time spent 25 min on [...] call with any questions. Sincerely, Hiral Ortega APRN.[facility]05-08-2024 Note* Addendum Note - Hiral Ortega APRN.CNP - 10/17/2023 5:29 PM EDTAddended by: HIRAL ORTEGA on: 10/17/2023 05:29 PM Modules accepted: Orders [facility]05-08-2024 History of Present illness Narrative* Hiral OrtegaMIGUEL.CORPORATE SAFETY DIRECTOR - 10/17/2023 5:29 PM EDT CNR-MOVEMENT DISORDERS [...] 100 mg 1 Level of service : 58379 (20-29 min). Time spent 25 min on [...] Sincerely, Hiral Ortega APRN.HUGH documented in this encounterAcmc Healthcare System05-08-2024 Miscellaneous Notes* Addendum Note - Hiral Ortega [...] still having this issue. Kathie Calvillo (Daughter) [phone] (Home Phone) documented in this encounterAcmc Healthcare System05-08-2024 Telephone encounter Note * Telephone Encounter - Dulce Melgar RN - 10/17/2023 11:15 AM EDT Spoke with pt. Informed her that the MRI of the spine showed arthritis-related degenerative changesto the spine, but not serious. She is agreeable to discussing in more detail at next office visit. [facility]05-08-[facility]24 Miscellaneous Notes* Telephone Encounter - Dulce Melgar [...] use and would like a return call. [phone] documented in this encounterA[facility] Telephone encounter Note * Telephone Encounter - David Valente MD - 10/17/2023 10:25 AM EDT Dear Team, Can we please let her know that the MRI of the spine showed arthritis-related degenerative changes to the spine, but not serious. We can discuss at her next in person visit and show her the images then. Thanks, -David [facility]05-08-2024 Telephone encounter Note* Telephone Encounter - Gabbi Ennis - 10/17/2023 10:15 AM EDT Judith phoned for results of MRI done on 10/06. She does not use and would like a return call. [phone] [facility]05-08-2024 Telephone encounter Note* Telephone Encounter - David Valente MD - 10/17/2023 9:43 AM EDT Dear Hiral, If she lives alone, I'd prefer the zonisamide. If she lives with someone who can monitor for the possible cognitive side effects of amantadine, I'd prefer amantadine. Thanks! -David [facility]04-30-2024 Telephone encounter Note* Telephone Encounter - Mila Jin - 10/09/2023 11:39 AM EDT Patients daughter calling to say there was medication discussed during last OV for dyskinesia. Theywant to know what it was and if it can be prescribed because she's still having this issue. Kathie Calvillo (Daughter) [phone] (Home Phone) [facility]04-28-2024 History of Present illness Narrative* Laura Spicer RT(R) - 10/07/2023 11:40 AM EDT Radiology [...] PATIENT PRESENTS WITH AN IMPLANTABLE OR ATTACHED PEDIATRIC HOSPITALIST: No RADIOLOGY DEPARTMENT: MR; Exam(s) Completed: Spine: Cervical spine, Thoracic spine, and Lumbar spine PERIPHERAL IV DATA: Not applicable SIGNED BY: RT Alec(R) October 07, 2023 5:53 PM documented in this encounterAcmc [facility] System04-04-2024 Instructions* Patient Instructions* David Valente MD [...] > left sensory loss. 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 Patient's perception of importance for healthcare provider to let them know of research trials for which they may be eligible? Not at all important Return at or around: 10/13/23 If there are any concerns before your next visit, please call or you can send a message through [employer]. You can also now schedule and select appointments through [employer]. David Valente MD documented in this encounterA[facility] History of Present illness Narrative* David Valente [...] Row Office Visit from 09/13/2023 in Neurological [facility] T Score 39.8 Global [...] Suprapatellar present. Crossed adductor absent. Coordination Right: Nmyu-qd-hyxn normal.Left: Adzc-mj-ghlk normal. See UPDRS. Gait Casual gait: Hesitant [...] Spine, concern for right sided lumbar radiculopathy [facility] for MRI claustrophobia planned (MRIs ordered at [facility], with radiology to administer anxiolytics) Neuropathy labwork In future, consider EMG right leg to work up right > left sensory loss. 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 Patient's perception of importance for healthcare provider to let them know of research trials for which they may be eligible? Not at all important Updated Parkinson's Medication Schedule: Medications breakfast lunch bedtime ropinerole 0.25mg 1 azilect 1mg 1 sinemet 25/100mg 1 1 1 Level of service : 92373 + 1 units 59850 ( > 75 min, [id number] for each 15 min > 60 min). Time spent 80 min on the day of service, which included preparing to see the patient, vlnt-zq-qhqb patient care, completing clinical documentation, obtaining and/or [...] Sincerely, David Valente MD documented in this encounterAcmc [facility] System[facility]24 Hospital Discharge instructions Patient Education 07/16/2023 [...] Consider working with a physical therapist or green jobs trainer who can develop an exercise plan to help you gain muscle strength. General instructions Take uaje-cht-muckvrk and prescription medicines only as told by [...] provider. Document Revised: 04/30/2022 Document Reviewed: 04/30/2022 [employer] Patient Education 2022 [employer]. Follow Up Care 07/16/2023 11:34:57 With:Kavon Flaquita Address: [address] [place] [id number] Business (1) When:07/19/2023 15:32:04 [facility]02-05-2024 Evaluation + Plan noteExtracted from: Title:ED Note Author:Leighton Fernandes PA-C te:07/16/23 Weakness (R53.1: Weakness) Diagnostic Tests Pending * Urine Culture 07/16/23 [facility]01-13-2024 Hospital Discharge instructions Patient Education 06/23/2023 16:31:59 Weakness, Thek-oc-Yqgs Weakness Weakness is a lack of strength. [...] about working with a physical therapist or green jobs trainer to help you get stronger. General instructions Take eenq-ruc-bzumqyq and prescription medicines only as told by [...] provider. Document Revised: 04/30/2022 Document Reviewed: 04/30/2022 [employer] Patient Education 2022 [employer] 06/23/2023 16:31:55 Urinary Tract Infection, Adult Urinary [...] Treatment for this condition includes: Antibiotic medicine. Qvnt-bnn-wrrxfmk medicines to treat discomfort. Drinking enough water [...] Follow these instructions at home: Medicines Take brod-qak-kytkeax and prescription medicines only as told by [...] provider. Document Revised: 01/07/2021 Document Reviewed: 01/07/2021 [employer] Patient Education 2022 [employer]. Follow Up Care 06/23/2023 01:35:45 With:Dani HERRERA, JOANNA Kauffman Address: [address] [address]- When:1 to 2 weeks [facility]01-13-2024 Evaluation + Plan noteExtracted from: Title:Consult [...] but reportedly she has MRI images in [place] within the past few months that did [...] just had an MRI in Dec at [facility]. Consult Neurology PT Eval ordered 2. [...] Blood Culture Charcoal CBC w/ Auto Diff [place] Stroke Scale Communication Order Physician to Nursing Continuous Pulse Oximetry CT Head or Brain w/o Contrast ECG 12 Lead Adult ED Cardiac Monitoring ED Physician consult Hospitalist for continued care eGFR Hepatic Function Panel Lactic Acid Magnesium Level NPO Diet Oxygen Therapy PT & PTT Rapid COVID Antigen ([facility]) Routine Capillary Glucose POC Saline Lock Insert Stroke Quality Measures Troponin 0 Hr. Troponin 3 Hr. Troponin 6 Hr. Troponin 9 Hr. TSH With T4fr Reflex UA With Cult Reflex Urine Culture Vital Signs XR Chest Single View Diagnostic Tests Pending * Blood Culture Charcoal 06/23/23 * Blood Culture Charcoal 06/23/23 * Urine Culture 06/23/23 [facility] noteNo assessment information available [facility] Work Phone: Evaluation note* Diagnosis Hyperreflexia- [...] changes Memory loss [facility] Diagnosis Spinal stenosis of cervical region Spinal stenosis in cervical region [facility] Diagnosis Abnormal posture documented in [...] fluctuating manifestations (HCC) [facility] Diagnosis Parkinson's disease, unspecified whether dyskinesia [...] of cerebral infarction [facility] Diagnosis Parkinson's disease, unspecified whether dyskinesia present, unspecified whether manifestations fluctuate (CMS/HCC)- Primary RLS (restless legs syndrome) Restless legs syndrome (RLS) Cerebral infarction, chronic Transient ischemic attack (TIA), and cerebral infarction without residual deficits Other chronic pain Carpal tunnel syndrome of right wrist [facility]* Diagnosis Parkinson's disease with dyskinesia and fluctuating manifestations (HCC)- Primary Anxiety disorder due to known physiological condition Anxiety state, unspecified Hypophonia with hoarseness [facility] Diagnosis Right wrist pain- Primary Pain in joint, forearm Closed Colles' fracture of right radius, initial encounter Other closed fracture of distal end of right ulna, initial encounter Parkinson's disease with dyskinesia, unspecified whether manifestations fluctuate (CMS/HCC) Underweight [facility]* Diagnosis Right wrist pain- Primary Pain in joint, forearm Closed Colles' fracture of right radius with routine healing Other closed fracture of distal end of right ulna with routine healing, subsequent encounter documented in this encounter [facility]* Diagnosis Onset Date Resolution Status Admit Date Acute UTI acute August 20 10:48pm Altered mental status acute Aug 10:48pm [facility] Work Phone: Evaluation note* Diagnosis Right wrist pain- Primary Pain in joint, forearm Pelvic pain Other closed intra-articular fracture of distal end of right radius with routine healing, subsequent encounter Closed fracture of superior ramus of left pubis, initial encounter (CMS/HCC) documented [facility]* Diagnosis Closed fracture of superior ramus of left pubis, initial encounter ([facility])- Primary documented in [facility] encounter [facility]* Diagnosis Closed fracture of superior ramus of left pubis, initial encounter ([facility])- Primary Other closed intra-articular fracture of distal end of right radius with routine healing, subsequent encounter documented [facility]* Diagnosis Parkinson's disease, unspecified whether dyskinesia present, unspecified whether manifestations fluctuate ([facility])- Primary RLS (restless legs syndrome) Restless legs syndrome (RLS) Cerebral infarction, chronic Transient ischemic attack (TIA), and cerebral infarction without residual deficits Carpal tunnel syndrome of right wrist Other chronic pain [facility]* Diagnosis Abnormal weight loss- Primary Loss of weight Stage 3b chronic kidney disease ([facility]) Parkinson's disease, unspecified whether dyskinesia present, unspecified whether manifestations fluctuate (HCC) Primary hypertension Unspecified essential hypertension Hemiplegia, unspecified affecting right dominant side (HCC) Bilateral lower extremity edema [facility]* Diagnosis Parkinson's disease with dyskinesia and fluctuating manifestations ([facility])- Primary Slow transit constipation Gait instability Abnormality of gait Fear of falling documented in this encounter [facility] course Narrative No data available for this section [facility] No data available for this section [facility] Summary Purpose Family History Relationship Condition Age at Onset Recorded Date/T dorys mother Cerebrovascular accident (CVA) Unknown father Malignant neoplasm Unknown son Malignant neoplasm Unknown Advance Directives Advance Directive Response Recorded Date/ Time Advance Directives No November 12 1:56pm Advance Directive Response Recorded Date/ Time Advance Directives No November 12 9 2:56pm Advance Directive Response Recorded Date/ Time Advance Directives No September 02 10:15pm Chief Complaint and Reason for Visit [...] 10:48pm Fracture of left superior pubic ramus [facility] 2024 3:46pm Impaired mobility and activities of alex y living August 25, 2024 3:46pm Acute UTI August 25, 2024 3:4 6pm Anxiety August 25, 2024 3:4 6pm HTN (hypertension) August 25, 2024 3:4 6pm Metabolic encephalopathy August 25 3:46pm Parkinsons disease August 25, 2024 3:4 6pm UTI (urinary tract infection) August 3:46pm Chief Complaint Admit Date Unknown October 23, 2024 1:45p m Respiratory Failure, Pneumonia October 28, 2024 2:46pm Respiratory Failure, Pneumonia October 29, 2024 12:16pm Infection December 14, 2024 7:54a m Reason for Visit Admit Date Acute delirium October 28, 2024 2:46p m Acute hypoxic respiratory failure October 282024 2:46pm Acute kidney failure October 28, 2024 2:46 pm Aspiration pneumonia October 28, 2024 2:46 pm Cachexia October 28, 2024 2:46p m COPD (chronic obstructive pulmonary dise ase) October 28, 2024 2:46pm Encephalopathy October 28, 2024 2:46p m Hypernatremia October 28, 2024 2:46p m Metabolic encephalopathy October 28, 2024 2:46pm Muscle wasting October 28, 2024 2:46p m 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, 2024 2:46pm Chief Complaint Admit Date Unknown October 23, 2024 1:45p m Respiratory Failure, Pneumonia October 28, 2024 2:46pm Respiratory Failure, Pneumonia October 29, 2024 12:16pm Infection December 14, 2024 7:54a m Confusion December 15, 2024 1:57p m Reason for Visit Admit Date Acute delirium October 28, 2024 2:46p m Acute hypoxic respiratory failure October 282024 2:46pm Acute kidney failure October 28, 2024 2:46 pm Aspiration pneumonia October 28, 2024 2:46 pm Cachexia October 28, 2024 2:46p m COPD (chronic obstructive pulmonary dise ase) October 28, 2024 2:46pm Encephalopathy October 28, 2024 2:46p m Hypernatremia October 28, 2024 2:46p m Metabolic encephalopathy October 28, 2024 2:46pm Muscle wasting October 28, 2024 2:46p m 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, 2024 2:46pm Acute confusion December 15, 2024 1:57p m Hypertensive emergency December 15, 2024 1: 57pm Reason for Visit Admit Date Acute delirium October 28, 2024 2:46p m Acute hypoxic respiratory failure October 282024 2:46pm Acute kidney failure October 28, 2024 2:46 pm Aspiration pneumonia October 28, 2024 2:46 pm Cachexia October 28, 2024 2:46p m COPD (chronic obstructive pulmonary dise ase) October 28, 2024 2:46pm Encephalopathy October 28, 2024 2:46p m Hypernatremia October 28, 2024 2:46p m Metabolic encephalopathy October 28, 2024 2:46pm Muscle wasting October 28, 2024 2:46p m 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, 2024 2:46pm Acute confusion December 15, 2024 1:57p m Acute kidney failure December 15, 2024 1:57 pm Delirium December 15, 2024 1:57p m Elevated troponin level not due to acute coronary syndrome December 15, 2024 1:57pm Hypertensive emergency December 15, 2024 1: 57pm Parkinson disease December 15, 2024 1:57p m Visual hallucinations December 15, 2024 1:5 7pm Chief Complaint Admit Date Respiratory Failure, Pneumonia October 28, 2024 2:46pm Infection December 14, 2024 7:54a m Confusion December 15, 2024 1:57p m Reason for Visit Admit Date Acute delirium October 28, 2024 2:46p m Acute hypoxic respiratory failure October 282024 2:46pm Aspiration pneumonia October 28, 2024 2:46 pm Cachexia October 28, 2024 2:46p m COPD (chronic obstructive pulmonary dise ase) October 28, 2024 2:46pm Encephalopathy October 28, 2024 2:46p m Hypernatremia October 28, 2024 2:46p m Metabolic encephalopathy October 28, 2024 2:46pm Muscle wasting October 28, 2024 2:46p m 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, 2024 2:46pm Acute kidney failure October 28, 2024 2:46 pm Acute confusion December 15, 2024 1:57p m Acute kidney failure December 15, 2024 1:57 pm Delirium December 15, 2024 1:57p m Elevated troponin level not due to acute coronary syndrome December 15, 2024 1:57pm Hypertensive emergency December 15, 2024 1: 57pm Visual hallucinations December 15, 2024 1:5 7pm Parkinson disease December 15, 2024 1:57p m Metabolic encephalopathy January 29 9:50am Parkinsons disease January 29, 2025 9: 50am Reason for Referral Specialty Diagnoses / Procedures Referred By Contac t Referred To Contact Diagnoses Parkinson's disease with dyskinesia and fluctuating manifestations (HCC) Procedures PROVIDER ORDERED FOLLOW UP OFFICE/OUTPATIENT NEW HIGH MDM 60 MINUTES Cherie Cedeno PA-C [address] [id number] Referral ID Status Reason Start Date Expiration Date Visits Requested Visits Authorized [id number] Authorized PCP Requested Referral 02/14/2024 01/13/2025 1 1 Specialty Diagnoses / Procedures Referred By Contac t Referred To Contact Diagnoses Parkinson's disease, unspecified whether dyskinesia present, unspecified whether manifestations fluctuate (HCC) Procedures PROVIDER ORDERED FOLLOW UP OFFICE/OUTPATIENT NEW HIGH MDM 60 MINUTES David Valente MD [address] [place] [address] Referral ID Status Reason Start Date Expiration Date Visits Requested Visits Authorized [id number] Authorized PCP Requested Referral 10/13/2023 09/12/2024 1 1 Specialty Diagnoses / Procedures Referred By Contac t Referred To Contact MR IMAGING Diagnoses Spinal stenosis of lumbar region with neurogenic claudication Procedures MRI LUMBAR SPINE WO IVCON MRI SPINAL CANAL LUMBAR W/O CONTRAST MATERIAL David Valente MD [address] [place] [address] Mr Imaging [place] [address] Referral ID Status Reason Start Date Expiration Date Visits Requested Visits Authorized [id number] Authorized Auto-Generat ed Referral 09/13/2023 10/12/2024 1 1 Specialty Diagnoses / Procedures Referred By Contac t Referred To Contact MR IMAGING Diagnoses Abnormal posture Procedures MRI THORACIC SPINE WO IVCON MRI SPINAL CANAL THORACIC W/O CONTRAST MATRL David Valente MD [address] [place] [address] [place] [address] Referral ID Status Reason Start Date Expiration Date Visits Requested Visits Authorized [id number] Authorized Auto-Generat ed Referral 09/13/2023 10/12/2024 1 1 Specialty Diagnoses / Procedures Referred By Contac t Referred To Contact MR IMAGING Diagnoses Spinal stenosis of cervical region Procedures MRI CERVICAL SPINE WO IVCON MRI SPINAL CANAL CERVICAL W/O CONTRAST David Andrea MD [address] [place], [place] [id number] [place], [place] [id number] [place] [address] Referral ID Status Reason Start Date Expiration Date Visits Requested Visits Authorized [id number] Authorized Auto-Generat ed Referral 09/13/2023 10/12/2024 1 1 Additional Source Comments INFORMATION SOURCE (unrecogn ized section and content) DATE CREATED AUTHOR 11/30/2017 [facility] DATE CREATED AUTHOR AUTHOR'S ORGANIZ ATION 10/13/2022 [facility] DATE CREATED AUTHOR AUTHOR'S ORGANIZ ATION 10/19/2023 [facility] DATE CREATED AUTHOR AUTHOR'S ORGANIZ ATION 12/02/2023 [facility] DATE CREATED AUTHOR AUTHOR'S ORGANIZ ATION 07/28/2024 [facility] DATE CREATED AUTHOR AUTHOR'S ORGANIZ ATION 07/29/2024 [facility] [place] [facility] DATE CREATED AUTHOR AUTHOR'S ORGANIZ ATION 08/04/2024 [facility] [place] [facility] DATE CREATED AUTHOR AUTHOR'S ORGANIZ ATION 08/16/2024 [facility] [place] [facility] DATE CREATED AUTHOR AUTHOR'S ORGANIZ ATION 10/30/2024 [facility] DATE CREATED AUTHOR AUTHOR'S ORGANIZ ATION 12/14/2024 [facility] DATE CREATED AUTHOR AUTHOR'S ORGANIZ ATION 12/28/2024 [facility] Special[facility] DATE CREATED AUTHOR AUTHOR'S ORGANIZ ATION 01/03/2025 [facility] DATE CREATED AUTHOR AUTHOR'S ORGANIZ ATION 01/08/2025 [facility] DATE CREATED AUTHOR AUTHOR'S ORGANIZ ATION 01/09/2025 [facility] Care Teams (unrecognized sec tion and content) Team Status: Active Member Role Status Dates Daniela Jaramillo SMOKE ROOM OPERATOR-C Primary Care Provider Active Team Status: Inactive Member Role Status Dates Kavon Sams MD Attending Provider Active Sta rt: October 23, 2024 End: October 23, 2024 Team Status: Inactive Member Role Status Dates Trish Christensen MD Admit Provider Active Start: October 28, 2024 End: November 02, 2024 Trish Christensen MD Attending Provider Active Sta rt: October 28, 2024 End: November 02, 2024 PHYSICIAN NO FAMILY Primary Care Provider Active Start: October 28, 2024 End: November 02, 2024 Alyson Park Other Provider Active Start: October 28, 2024 End: November 02, 2024 Jose R Lewis , PhD Other Provider Active S tart: October 28, 2024 End: November 02, 2024 Christina Vasquez , DO Other Provider Active Start: October 28, 2024 End: November 02, 2024 Ramiro Louise MD Other Provider Active Start : October 28, 2024 End: November 02, 2024 Baljeet Rao , DO Other Provider Active Start: October 28, 2024 End: November 02, 2024 Tony Fuentes , DO Other Provider Active Start: October 28, 2024 End: November 02, 2024 Haydee Farris APRN Other Provider Active St art: October 28, 2024 End: November 02, 2024 Cathie Gill NP-C Other Provider Active Sta rt: October 28, 2024 End: November 02, 2024 Shaun Jackson APRN-SEWER BRICKLAYER-C Other Provider Active Start: October 28, 2024 End: November 02, 2024 Team Status: Active Member Role Status Dates Trish Christensen MD Admit Provider Active Start: October 29, 2024 Trish Christensen MD Other Provider Active Start: October 29, 2024 Kavon Sams MD Primary Care Provider Active Start: October 29, 2024 José Antonio Lerma , DO Attending Provider Active Sta rt: October 29, 2024 José Antonio Lerma , DO Other Provider Active Start: October 29, 2024 Team Status: Inactive Member Role Status Dates Damaso Charlton , DO Emergency Provider Active St art: December 14, 2024 End: December 14, 2024 Linda Minaya MD Primary Care Provider Active S tart: December 14, 2024 End: December 14, 2024 Team Status: Active Member Role Status Dates Jen Downing MD Emergency Provider Active Start: December 15, 2024 Daniela Jaramillo NP-Tha Primary Care Provider Active Start: December 15, 2024 Faith Mccoy MD Admit Provider Active Start : December 15, 2024 Faith Mccoy MD Attending Provider Active S tart: December 15, 2024 Team Status: Active Member Role Status Dates Kavon Sams MD Primary Care Provider Active Team Status: Inactive Member Role Status Dates Kavon Sams MD Primary Care Provider Active Cathie Gill NP-Tha Attending Provider Active Security Site Supervisor Relationship Specialty Start Date End Date Kavon Sams Md PCP - General Family Medicine 03/23/20 Kavon Sams MD Physician Family Medicine 02/20/20 Security Site Supervisor Relationship Specialty Start Date End Date Kavon Sams Md PCP - General Family Medicine 03/23/20 Kavon Sams MD Physician Family Medicine 02/20/20 Security Site Supervisor Relationship Specialty Start Date End Date Kavon Sams Md PCP - General Family Medicine 03/23/20 Kavon Sams MD Physician Family Medicine 02/20/20 Security Site Supervisor Relationship Specialty Start Date End Date Kavon aSms Md PCP - General Family Medicine 03/23/20 Kavon Sams MD Physician Family Medicine 02/20/20 Security Site Supervisor Relationship Specialty Start Date End Date Kavon Sams Md PCP - General Family Medicine 03/23/20 Kavon Sams MD Physician Family Medicine 02/20/20 Security Site Supervisor Relationship Specialty Start Date End Date Kavon Sams Md PCP - General Family Medicine 03/23/20 Kavon Sams MD Physician Family Medicine 02/20/20 Security Site Supervisor Relationship Specialty Start Date End Date Kavon Sams Md PCP - General Family Medicine 03/23/20 Kavon Sams MD Physician Family Medicine 02/20/20 Security Site Supervisor Relationship Specialty Start Date End Date Kavon Sams Md PCP - General Family Medicine 03/23/20 Kavon Sams MD Physician Family Medicine 02/20/20 Security Site Supervisor Relationship Specialty Start Date End Date Kavon Sams Md PCP - General Family Medicine 03/23/20 Kavon Sams MD Physician Family Medicine 02/20/20 Security Site Supervisor Relationship Specialty Start Date End Date Kavon Sams Md PCP - General Family Medicine 03/23/20 Kavon Sams MD Physician Family Medicine 02/20/20 Security Site Supervisor Relationship Specialty Start Date End Date Kavon Sams Md PCP - General Family Medicine 03/23/20 Kavon Sams MD Physician Family Medicine 02/20/20 Security Site Supervisor Relationship Specialty Start Date End Date Kavon Sams MD [address] [facility] [place] [address] PCP - General Family Medicine 08/15/23 Security Site Supervisor Relationship Specialty Start Date End Date Kavon Sams MD [address] [place] [address] PCP - General Family Medicine 08/15/23 Security Site Supervisor Relationship Specialty Start Date End Date Kavon Sams MD [address] [facility] [place] [address] PCP - General Family Medicine 08/15/23 Security Site Supervisor Relationship Specialty Start Date End Date Kavon Sams Md PCP - General Family Medicine 03/23/20 Kavon Sams MD Physician Family Medicine 02/20/20 Team Status: Inactive Member Role Status Dates Kavon Sams MD Attending Provider Active Sta rt: July 24, 2024 End: July 24, 2024 Security Site Supervisor Relationship Specialty Start Date End Date Kavon Sams MD [address] [place] [address] PCP - General Family Medicine 08/15/23 Security Site Supervisor Relationship Specialty Start Date End Date Kavon Sams Md PCP - General Family Medicine 03/23/20 Kavon Sams MD Physician Family Medicine 02/20/20 Security Site Supervisor Relationship Specialty Start Date End Date Kavon Sams MD [address] [facility] [place] [address] (Fax) PCP - General Family Medicine 08/15/23 Team Status: Inactive Member Role Status Dates Meghan Ramachandran DO Attending Provider Active Sta rt: August 06, 2024 End: August 06, 2024 Security Site Supervisor Relationship Specialty Start Date End Date Kavon Sams MD [address] [facility] [place] [address] PCP - General Family Medicine 08/15/23 Team [...] Mago Quintanilla MD Other Provider Active Start: [facility] 2024 End: August 25, 2024 Ramsey Monroe MD Other Provider Active Start: eL[facility] silva 2024 End: August 25, 2024 Didi Navarro APRN Other Provider Active St art: August 20, 2024 End: August 25, 2024 Dani Bah Jr DO Other Provider Active S tart: August 20, 2024 End: August 25, 2024 Pa Neil MD Other Provider Active Start: August 20, 2024 End: August 25, 2024 Tony Fuentes DO Other Provider Active Start: August 20, 2024 End: August 25, 2024 Team Status: Active Member Role Status Dates Damaso Charlton DO Emergency Provider Active St art: August 22, 2024 Kavon Sams MD Primary Care Provider Active Start: August 22, 2024 Lauro Garvey MD Admit Provider Active S tart: August 22, 2024 Mariajose Alfred MD Other Provider Active Sta rt: August 22, 2024 Mago Quintanilla MD Other Provider Active Start: [facility] 2024 Ramsey Monroe MD Attending Provider, Other Provider Active Start: August 22, 2024 Didi Navarro APRN Other Provider Active St art: August 22, 2024 Dani Bah Jr, DO Other Provider Active S tart: August 22, 2024 Pa Neil MD Other Provider Active Start: August 22, 2024 Tony Fuentes , Other Provider Active Start: August 22, 2024 Team Status: Inactive Member Role Status Dates Kavon Sams MD Primary Care Provider Active Start: August 25, 2024 End: September 05, 2024 Pa Neil MD Admit Provid er, Attending Provider Active Start: August 25, 2024 End: September 05, 2024 Gloria House , CECY Other Provider Active Star t: August 25, 2024 End: September 05, 2024 Andra Uriostegui , CECY Other Provider Active Start : August 25, 2024 End: September 05, 2024 Kimberlyn Prasad , CECY Other Provider Active Star t: August 25, 2024 End: September 05, 2024 Tequila Santamaria , CECY Other Provider Active Start: [facility] 2024 End: September 05, 2024 Yvrose Johnson , CECY Other Provider Active Start: [facility] 2024 End: September 05, 2024 Trish [...] Ludwin Cuadra MD Other Provider Active Start: [facility] 2024 End: September 05, 2024 Baylee Ho APRN Other Provider Active Start: August 25, 2024 End: September 05, 2024 Carie Blunt MD Other Provider Active Start: August 25, 2024 End: September 05, 2024 Easton Galeano MD Other Provider Active Start: [facility] 2024 End: September 05, 2024 Yanique Echevarria MD Other Provider Active Start: August 25, 2024 End: September 05, 2024 Bobby Luz MD Other Provider Active Start: August 25, 2024 End: September 05, 2024 Yulissa Lemon DO Other Provider Active Start: August 25, 2024 End: September 05, 2024 Paxton Sparks MD Other Provider Active Start: [facility] 2024 End: September 05, 2024 Ulysses Valenzuela MD Other Provider Active Start: [facility] 2024 End: September 05, 2024 Meghana Pandya NP-Tha Other Provider Active St art: August 25, 2024 End: September 05, 2024 Sofia Warren APRN Other Provider Active Star t: August 25, 2024 End: September 05, 2024 Ton Conti MD Other Provider Active Start: August 25, 2024 End: September 05, 2024 Jordan Ortega MD Other Provider Active Start: [facility] 2024 End: September 05, 2024 Abner Lazar MD Other Provider Active Start: [facility] 2024 End: September 05, 2024 Nikko Faria MD Other Provider Active Star t: August 25, 2024 End: September 05, 2024 Jair Mejia MD Other Provider Active Start: [facility] 2024 End: September 05, 2024 Carolina Mccoy DO Other Provider Active Start: [facility] 2024 End: September 05, 2024 Ty [...] Haile Patel MD Other Provider Active Start: [facility] 2024 End: September 05, 2024 Lauro Garvey MD Other Provider Active S tart: August 25, 2024 End: September 05, 2024 Niranjan Ambrosio , Other Provider Active Star t: August 25, [...] Joe Coleman MD Other Provider Active Start: [facility] 2024 End: September 05, 2024 Awais Shafer MD Other Provider Active Start: [facility] 2024 End: September 05, 2024 Ramsey Dillon MD Other Provider Active Start: August 25, 2024 End: September 05, 2024 Ludwin Barry MD Other Provider Active Start : August 25, 2024 End: September 05, 2024 Bogdan Harris MD Other Provider Active Start: [facility] 2024 End: September 05, 2024 Anaid Borrero APRN Other Provider Active Sta rt: August 25, 2024 End: September 05, 2024 Gi Liz APRN Other Provider Active Start: August 25, 2024 End: September 05, 2024 Lanny Pisano RN Other Provider Active Start: [facility] 2024 End: September 05, 2024 Alyson Park Other Provider Active Start: August 25, 2024 End: September 05, 2024 Jose R Lewis , PhD Other Provider Active S tart: August 25, [...] 2024 End: September 05, 2024 Shaun Jackson APRN-SEWER BRICKLAYER-C Other Provider Active Start: August 25, 2024 End: September 05, 2024 Henrry Jon MD Other Provider Active Start: [facility] 2024 End: September 05, 2024 Naye Lawson MD Other Provider Active Star t: August 25, 2024 End: September 05, 2024 Shayy García NP-C Other Provider Active Start: August 25, 2024 End: September 05, 2024 Ashwin Carlos DO Other Provider Active Start : August 25, 2024 End: September 05, 2024 Dale Alvarenga II, MD Other Provider Active S tart: August 25, 2024 End: September 05, 2024 Demarco Segal DO Other Provider Active Start: August 25, 2024 End: September 05, 2024 Team Status: Active Member Role Status Dates Kavon Sams MD Primary Care Provider Active Start: August 26, 2024 Pa Neil MD Admit Provid er, Attending Provider, Other Provider Active Start: August 26, 2024 Gloria Huose , CECY Other Provider Active Star t: August 26, 2024 Andra Uriostegui , CECY Other Provider Active Start : August 26, 2024 Kimberlyn Prasad , CECY Other Provider Active Star t: August 26, 2024 Tequila Santamaria , CECY Other Provider Active Start: [facility] 2024 Yvrose Johnson RN Other Provider Active Start: [facility] 2024 Trihs Christensen MD Other Provider Active Start: August [...] Provider Active St art: August 26, 2024 Ludiwn Cuadra MD Other Provider Active Start: [facility] 2024 Baylee Ho APRN Other Provider Active Start: August 26, 2024 Carie Blunt MD Other Provider Active Start: August 26, 2024 Easton Galeano MD Other Provider Active Start: [facility] 2024 Yanique Echevarria MD Other Provider Active Start: August 26, 2024 Bobby Luz MD Other Provider Active Start: August 26, 2024 Yulissa Lemon DO Other Provider Active Start: August 26, 2024 Paxton Sparks MD Other Provider Active Start: [facility] 2024 Ulysses Valenzuela MD Other Provider Active Start: [facility] 2024 Meghana Pandya SMOKE ROOM OPERATOR-C Other Provider Active St art: August 26, 2024 Sofia Warren APRN Other Provider Active Star t: August 26, 2024 oTn Conti MD Other Provider Active Start: August 26, 2024 Jordan Ortega MD Other Provider Active Start: [facility] 2024 Abner Lazar MD Other Provider Active Start: [facility] 2024 Nikko Faria MD Other Provider Active Star t: August 26, 2024 Jair Mejia MD Other Provider Active Start: [facility] 2024 Carolina Mccoy , Other Provider Active Start: [facility] 2024 Ty Garrido , DO Other Provider Active Start : August 26, 2024 Katarzyna Major APRN Other Provider Active Start: August 26, 2024 Andrew Grace , Other Provider Active Start: August 26, 2024 Mariajose Alfred MD Other Provider Active Sta rt: August 26, 2024 Ebony Scott APRN Other Provider Active Start : August 26, 2024 Sameera Diaz APRN Other Provider Active St art: August 26, 2024 Haile Patel MD Other Provider Active Start: [facility] 2024 Lauro Garvey MD Other Provider Active S tart: August 26, 2024 Niranjan Ambrosio , Other Provider Active Star t: August 26, 2024 Aristeo Kong DO Other Provider Active Start: August 26, 2024 Leonardo Lazar MD Other Provider Active Start: August 26, 2024 Addy Johns MD Other Provider Active Start: August 26 Haydee Cornejo APRN Other Provider Active Star t: August 26, 2024 Joe Coleman MD Other Provider Active Start: [facility] 2024 Awais Shafer MD Other Provider Active Start: [facility] 2024 Ramsey Dillon MD Other Provider Active Start: August 26, 2024 Ludwin Barry MD Other Provider Active Start : August 26, 2024 Bogdan Harris MD Other Provider Active Start: [facility] 2024 Anaid Borrero APRN Other Provider Active Sta rt: August 26, 2024 Gi Liz APRN Other Provider Active Start: August 26 Lanny Pisano , CECY Other Provider Active Start: [facility] 2024 Team Status: Active Member Role Status Dates Kavon Sams MD Primary Care Provider Active Start: September 02, 2024 Pa Neil MD Admit Provid er, Attending Provider, Other Provider Active Start: September 02, 2024 Gloria House , CECY Other Provider Active Star t: September 02, 2024 Andra Uriostegui , CECY Other Provider Active Start : September 02, 2024 Kimberlyn Prasad , CECY Other Provider Active Star t: September 02, 2024 Tequila Santamaria , CECY Other Provider Active Start: [facility] 2024 Yvrose Johnson RN Other Provider Active Start: [facility] 2024 Trish Christensen MD Other Provider [...] Ludwin Cuadra MD Other Provider Active Start: [facility] 2024 Baylee Ho APRN Other Provider Active Start: September 02, 2024 Carie Blunt MD Other Provider Active Start: September 02, 2024 Easton Galeano MD Other Provider Active Start: [facility] 2024 Yanique Echevarria MD Other Provider Active Start: September 02, 2024 Bobby Luz MD Other Provider Active Start: September 02, 2024 Yulissa Lemon DO Other Provider Active Start: September 02, 2024 Paxton Sparks MD Other Provider Active Start: [facility] 2024 Ulysses Valenzuela MD Other Provider Active Start: [facility] 2024 Meghana Pandya , SMOKE ROOM OPERATOR-C Other Provider Active St art: September 02, 2024 Sofia Warren APRN Other Provider Active Star t: September 02, 2024 Ton Conti MD Other Provider Active Start: September 02, 2024 Jordan Ortega MD Other Provider Active Start: [facility] 2024 Abner Lazar MD Other Provider Active Start: [facility] 2024 Nikko Faria MD Other Provider Active Star t: September 02, 2024 Jair Mejia MD Other Provider Active Start: [facility] 2024 Carolina Mccoy , Other Provider Active Start: [facility] 2024 Ty Garrido , Other Provider [...] Haile Patel MD Other Provider Active Start: [facility] 2024 Lauro Garvey MD Other Provider Active S tart: September 02, 2024 Niranjan Ambrosio , Other Provider Active Star t: September 02, 2024 Aristeo Kong DO Other Provider Active Start: September 02, 2024 Leonardo Lazar MD Other Provider Active Start: September 02, 2024 Addy Johns MD Other Provider Active Start: September 02, 2024 Haydee Cornejo APRN Other Provider Active Star t: September 02, 2024 Joe Coleman MD Other Provider Active Start: [facility] 2024 Awais Shafer MD Other Provider Active Start: [facility] 2024 Ramsey Dillon MD Other Provider Active Start: September 02, 2024 Ludwin Barry MD Other Provider Active Start : September 02, 2024 Bogdan Harris MD Other Provider Active Start: [facility] 2024 Anaid Borrero APRN Other Provider Active Sta rt: September 02, 2024 Gi Liz APRN Other Provider Active Start: September 02, 2024 Lanny Pisano RN Other Provider Active Start: [facility] 2024 Alyson [place] Other Provider Active Start: September 02, 2024 Jose R Lewis , PhD Other Provider Active S tart: September 02, 2024 Christina Vasquez , DO Other Provider Active Start: September 02, 2024 Ramiro Louise MD Other Provider Active Start : September 02, 2024 Baljeet Rao , DO Other Provider Active Start: September 02, 2024 Tony Fuentes , DO Other Provider Active Start: September 02, 2024 Haydee Farris , MIGUEL Other Provider Active St art: September 02, 2024 Cathie Gill , SMOKE ROOM OPERATOR-C Other Provider Active Sta rt: September 02, 2024 Shaun Jackson , RETIREMENT 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 Other Provider Active Start: September 02, 2024 [...] Santamaria , CECY Other Provider Active Start: [facility] 2024 Yvrose Johnson , CECY Other Provider Active Start: [facility] 2024 Trish Christensen MD Other Provider Active Start: September 03, 2024 Barney Quan , Other Provider Active Start : September 03, 2024 Clyde Avila MD Other Provider Active Start : September 03, 2024 Connor Dumont , Other Provider Active Start: September 03, 2024 Evelio Smith MD Other Provider Active Start: September 03, 2024 Faith Mccoy MD Other Provider Active Start : September 03, 2024 Yulissa Shelby , Other Provider Active St art: September 03, 2024 Ludwin Cuadra MD Other Provider Active Start: [facility] 2024 Baylee Ho APRN Other Provider Active Start: September 03, 2024 Carie Blunt MD Other Provider Active Start: September 03, 2024 Easton Galeano MD Other Provider Active Start: [facility] 2024 Yanique Echevarria MD Other Provider Active Start: September 03, 2024 Bobby Luz MD Other Provider Active Start: September 03, 2024 Yulissa Lemon , Other Provider Active Start: September 03, 2024 Paxton Sparks MD Other Provider Active Start: [facility] 2024 Ulysses Valenzuela MD Other Provider Active Start: [facility] 2024 Meghana Pandya NP-C Other Provider Active St art: September 03, 2024 Sofia Warren APRN Other Provider Active Star t: September 03, 2024 Ton Conti MD Other Provider Active Start: September 03, 2024 Jordan Ortega MD Other Provider Active Start: [facility] 2024 Abner Lazar MD Other Provider Active Start: [facility] 2024 Nikko Faria MD Other Provider Active Star t: September 03, 2024 Jair Mejia MD Other Provider Active Start: [facility] 2024 Carolina Mccoy DO Other Provider Active Start: [facility] 2024 Ty Garrido , Other Provider Active Start : September 03, 2024 Katarzyna Major APRN Other Provider Active Start: September 03, 2024 Andrew Grace DO Other Provider Active Start: September 03, 2024 Mariajose Alfrde MD Other Provider Active Sta rt: September 03, 2024 Ebony Scott APRN Other Provider Active Start : September 03, 2024 Sameera Diaz APRN Other Provider Active St art: September 03, 2024 Haile Patel MD Other Provider Active Start: [facility] 2024 Lauro Garvey MD Other Provider Active S tart: September 03, 2024 Niranjan Ambrosio , Other Provider Active Star t: September 03, 2024 Aristeo Kong DO Other Provider Active Start: September 03, 2024 Leonardo Lazar MD Other Provider Active Start: September 03, 2024 Addy Johns MD Other Provider Active Start: September 03, 2024 Haydee Borisov , RETIREMENT ACTUARY Other Provider Active Star t: September 03, 2024 Joe Coleman MD Other Provider Active Start: [facility] 2024 Awais Shafer MD Other Provider Active Start: [facility] 2024 Ramsey Dillon MD Other Provider Active Start: September 03, 2024 Ludwin Barry MD Other Provider Active Start : September 03, 2024 Bogdan Harris MD Other Provider Active Start: [facility] 2024 Anaid Borrero APRN Other Provider Active Sta rt: September 03, 2024 Gi Liz APRN Other Provider Active Start: September 03, 2024 Lanny Pisano RN Other Provider Active Start: [facility] 2024 Alyson [place] Other Provider Active Start: September 03, 2024 Jose R Lewis , PhD Other Provider Active S tart: September 03, 2024 Christina Vasquez DO Other Provider Active Start: September 03, 2024 Ramiro Louise MD Other Provider Active Start : September 03, 2024 Baljeet Rao DO Other Provider Active Start: September 03, 2024 Tony Fuentes DO Other Provider Active Start: September 03, 2024 Haydee Farris APRN Other Provider Active St art: September 03, 2024 Cathie Gill NP-C Other Provider Active Sta rt: September 03, 2024 Shaun Jackson , RETIREMENT 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 Other Provider Active Start: September 03, 2024 [...] Other Provider Active Start: September 03, 2024 Security Site Supervisor Relationship Specialty Start Date End Date Kavon Sams MD [address] [place] [address] PCP - General Family Medicine 08/15/23 Security Site Supervisor Relationship Specialty Start Date End Date Kavon Sams MD [address] [facility] [place] [address] PCP - General Family Medicine 08/15/23 Security Site Supervisor Relationship Specialty Start Date End Date Kavon Sams MD [address] [place] [address] PCP - General Family Medicine 08/15/23 Security Site Supervisor Relationship Specialty Start Date End Date Kavon Sams MD [address] [place] [address] PCP - General Family Medicine 08/15/23 Security Site Supervisor Relationship Specialty Start Date End Date Kavon Sams MD PCP - General Family Medicine 08/15/23 Security Site Supervisor Relationship Specialty Start Date End Date Kavon Sams MD [address] [place] [address] PCP - General Family Medicine 11/20/24 Security Site Supervisor Relationship Specialty Start Date End Date Kavon Sams MD [address] [place] [address] PCP - General Family Medicine 11/20/24 Team Status: Active Member Role Status Dates Linda Minaya MD Primary Care Provider Active Team Status: Active Member Role Status Dates Jen Downing MD Emergency Provider Active Start: December 15, 2024 Daniela Jaramillo , SMOKE ROOM OPERATOR-C Primary Care Provider Active Start: December 15, 2024 Faith Mccoy MD Admit Provider Active Start : December 15, 2024 Faith Mccoy MD Other Provider Active Start : December 15, 2024 Alyson [place] Other Provider Active Start: December 15, 2024 Christina Vasquez , Other Provider Active Start: December 15, 2024 Ramiro Louise MD Other Provider Active Start : December 15, 2024 Baljeet Rao , Other Provider Active Start: December 15, 2024 Tony Fuentes , Other Provider Active Start: December 15, 2024 Haydee Farris APRN Other Provider Active St art: December 15, 2024 Cathie Gill , MIRELLA-C Other Provider Active Sta rt: December 15, 2024 Shaun Jackson , RETIREMENT 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 Other Provider Active Start: December 15, 2024 Candida Garcia RN Other Provider Active Star t: December 15, 2024 David Leach MD Other Provider Active Start: [facility] 2024 Brian Mcdonald MD Attending Provider Activ e Start: December 15, 2024 Brian Mcdonald MD Other Provider Active Start: December 15, 2024 Katarzyna Rascon MD Other Provider Active Start: December 15, 2024 Spring Chisholm APRN Other Provider Active Sta rt: December 15, 2024 Security Site Supervisor Relationship Specialty Start Date End Date Kavon Sams MD [address] [place] [address] PCP - General Family Medicine 11/20/24 12/24/24 Lauro Mcnamara MD [address] [facility] [address] [place] [address] PCP - General Internal Medicine 12/25/24 Daniela Jaramillo NP [address] [facility] [address] [place] [address] Nurse Practitioner Family Medicine 12/25/24 Security Site Supervisor Relationship Specialty Start Date End Date Lauro Mcnamara MD [address] [facility] [address] [place] [address] PCP - General Internal Medicine 12/25/24 Daniela Jaramillo NP [address] [address] Nurse Practitioner Family Medicine 12/25/24 Security Site Supervisor Relationship Specialty Start Date End Date Kavon Sams Md PCP - General Family Medicine 03/23/20 Kavon Sams MD Physician Family Medicine 02/20/20 Team Status: Inactive Member Role Status Dates Baljeet Rao DO Attending Provider Active Start: January 29, 2025 End: January 29, 2025 Daniela Jaramillo NP-C Primary Care Provider Active Start: January 29, 2025 End: January 29, 2025 Goals (unrecognized section and content) Goals may [...] or prosecute any alcohol or drug abuse patient.[facility] System[facility] the event this information is protected by the Federal Confidentiality of Alcohol and Drug Abuse Patient Records regulations: The Federal rules restrict any use of the information to criminally investigate or prosecute any alcohol or drug abuse patient.[facility] SystemIn the event this information is protected by the Federal Confidentiality of Alcohol and Drug Abuse Patient Records regulations: The Federal rules restrict any use of the information to criminally investigate or prosecute any alcohol or drug abuse patient.[facility] SystemIn the event this information is protected by the Federal Confidentiality of Alcohol and Drug Abuse Patient Records regulations: The Federal rules restrict any use of the information to criminally investigate or prosecute any alcohol or drug abuse patient.[facility] SystemIn the event this information is protected by the Federal Confidentiality of Alcohol and Drug Abuse Patient Records regulations: The Federal rules restrict any use of the information to criminally investigate or prosecute any alcohol or drug abuse patient.[facility] SystemIn the event this information is protected by the Federal Confidentiality of Alcohol and Drug Abuse Patient Records regulations: The Federal rules restrict any use of the information to criminally investigate or prosecute any alcohol or drug abuse patient.[facility] SystemIn the event this information is protected by the Federal Confidentiality of Alcohol and Drug Abuse Patient Records regulations: The Federal rules restrict any use of the information to criminally investigate or prosecute any alcohol or drug abuse patient.[facility] SystemIn the event this information is protected by the Federal Confidentiality of Alcohol and Drug Abuse Patient Records regulations: The Federal rules restrict any use of the information to criminally investigate or prosecute any alcohol or drug abuse patient.[facility] SystemIn the event this information is protected by the Federal Confidentiality of Alcohol and Drug Abuse Patient Records regulations: The Federal rules restrict any use of the information to criminally investigate or prosecute any alcohol or drug abuse patient.[facility] SystemIn the event this information is protected by the Federal Confidentiality of Alcohol and Drug Abuse Patient Records regulations: The Federal rules restrict any use of the information to criminally investigate or prosecute any alcohol or drug abuse patient.[facility] SystemIn the event this information is protected by the Federal Confidentiality of Alcohol and Drug Abuse Patient Records regulations: The Federal rules restrict any use of the information to criminally investigate or prosecute any alcohol or drug abuse patient.[facility] SystemIn the event this information is protected by the Federal Confidentiality of Alcohol and Drug Abuse Patient Records regulations: The Federal rules restrict any use of the information to criminally investigate or prosecute any alcohol or drug abuse patient.[facility] SystemIn the event this information is protected by the Federal Confidentiality of Alcohol and Drug Abuse Patient Records regulations: The Federal rules restrict any use of the information to criminally investigate or prosecute any alcohol or drug abuse patient.[facility] SystemIn the event this information is protected by the Federal Confidentiality of Alcohol and Drug Abuse Patient Records regulations: The Federal rules restrict any use of the information to criminally investigate or prosecute any alcohol or drug abuse patient.[facility] SystemIn the event this information is protected by the Federal Confidentiality of Alcohol and Drug Abuse Patient Records regulations: The Federal rules restrict any use of the information to criminally investigate or prosecute any alcohol or drug abuse patient.[facility] SystemIn the event this information is protected by the Federal Confidentiality of Alcohol and Drug Abuse Patient Records regulations: The Federal rules restrict any use of the information to criminally investigate or prosecute any alcohol or drug abuse patient.[facility] Reason for Visit (unrecogniz ed section and content) Reason Comments New Patient Reason Comments Radiology MRI Specialty Diagnoses / Procedures Referred By Amaliaac t Referred To Contact MR IMAGING Diagnoses Spinal stenosis of cervical region Procedures MRI CERVICAL SPINE WO IVCON MRI SPINAL CANAL CERVICAL W/O CONTRAST David Andrea MD [address] [place] [address] Mr Imaging [place] [address] Referral ID Status Reason Start Date Expiration Date V isits Requested Visits Authorized [id number] Closed Auto-Generate d Referral 09/13/2023 10/12/2024 1 1 Specialty Diagnoses / Procedures Referred By Contac t Referred To Contact MR IMAGING Diagnoses Abnormal posture Procedures MRI THORACIC SPINE WO IVCON MRI SPINAL CANAL THORACIC W/O CONTRAST MATRL David Valente MD [address] [place] [address] Mr Imaging [place] [address] Referral ID Status Reason Start Date Expiration Date V isits Requested Visits Authorized [id number] Closed Auto-Generate d Referral 09/13/2023 10/12/2024 1 1 Specialty Diagnoses / Procedures Referred By Contac t Referred To Contact MR IMAGING Diagnoses Spinal stenosis of lumbar region with neurogenic claudication Procedures MRI LUMBAR SPINE WO IVCON MRI SPINAL CANAL LUMBAR W/O CONTRAST MATERIAL David Valente MD [address] [place] [address] Mr Imaging [place] [address] Referral ID Status Reason Start Date Expiration Date V isits Requested Visits Authorized [id number] Closed Auto-Generate d Referral 09/13/2023 10/12/2024 1 1 Reason Comments Results MRI Reason Comments Parkinson's Disease Specialty Diagnoses / Procedures Referred By Contac t Referred To Contact Diagnoses Parkinson's disease, unspecified whether dyskinesia present, unspecified whether manifestations fluctuate (HCC) Procedures PROVIDER ORDERED FOLLOW UP OFFICE/OUTPATIENT NEW HIGH MDM 60 MINUTES David Valente MD [address] [place] [address] Referral ID Status Reason Start Date Expiration Date Visits Requested Visits Authorized [id number] Authorized PCP Requested Referral 10/13/2023 09/12/2024 1 1 Reason Comments Med Change Request Reason Comments Medication Update/Amantadine Reason Comments Established Patient Follow Up Reason Comments Established Patient Follow up Specialty Diagnoses / Procedures Referred By Contac t Referred To Contact Diagnoses Parkinson's disease with dyskinesia and fluctuating manifestations (HCC) Procedures PROVIDER ORDERED FOLLOW UP OFFICE/OUTPATIENT NEW HIGH MDM 60 MINUTES Cherie Cedeno PA-C [address] [place] [address] Referral ID Status Reason Start Date Expiration Date V isits Requested Visits Authorized [id number] Closed PCP Requested Referral 02/14/2024 01/13/2025 1 1 Reason Comments Refill Request Reason Comments Parkinson's Disease Insomnia Carpal Tunnel Reason Comments Parkinson's Disease Restless Legs Carpal Tunnel R History of Stroke Reason Comments Established Patient Follow up declined a ll tablets Specialty Diagnoses / Procedures Referred By Reyna medina Referred To Contact NEUROLOGICAL [facility] Diagnoses Parkinson's disease with dyskinesia and fluctuating manifestations (HCC) Procedures PROVIDER ORDERED FOLLOW UP OFFICE/OUTPATIENT NEW HIGH MDM 60 MINUTES Cherie Cedeno PA-C [id number] [place] [address] Referral ID Status Reason Start Date Expiration Date V isits Requested Visits Authorized [id number] Closed PCP Requested Referral 07/15/2024 02/21/2025 1 1 Reason Comments Surgical Clearance Reason Comments Fracture Reason Comments Fracture Sx 08/12/24 Fracture DOI 09/02/24 Reason Onset Date Comments Med Refill 09/24/2024 Reason Comments Parkinson's Disease Stroke Reason Comments ER Follow-up Reason Comments Established Patient Specialty Diagnoses / Procedures Referred By Reyna medina Referred To Contact NEUROLOGICAL BUR[facility] Diagnoses Parkinson's disease with dyskinesia and fluctuating manifestations (HCC) Procedures PROVIDER ORDERED FOLLOW UP OFFICE/OUTPATIENT NEW HIGH MDM 60 MINUTES Cherie Cedeno PA-C [id number] Phone: tel: fax: Neurology [address] [place] [address] Phone: tel:[phone] Referral ID Status Reason Start Date Expiration Date V isits Requested Visits Authorized [id number] Closed PCP Requested Referral 12/29/2024 07/16/2025 1 1 FOR RECORDS PERTAINING TO PATIENTS [...] BE BASED ON THE PRIMARY CLINICAL RECORDS. [facility]. provides no warranty or guarantee of the accuracy or completeness of information in this document.
[2025-01-30 13:22] LABS: Anion Gap 10.6; Blood Urea Nitrogen 27.0 mg/dL (7.0-18.0); Calcium 10.9 mg/dL (8.5-10.1); Carbon Dioxide 25.3 mmol/L (21.0-32.0); Chloride 108 mmol/L (98-107); Estimated GFR (African America 47 (>=60 mL/min/1.73m^2); Estimated GFR (Non-African Ame 39 (>=60 mL/min/1.73m^2); Glucose 98 mg/dL (74-106); Potassium 4.9 mmol/L (3.5-5.1); Sodium 139 mmol/L (136-145)
== END 2025-01-30 12:50 | disposition home or self-care (01) ==
LOC: LAB 12:50
PROVIDERS: PCP Nurse Practitioner Family
DX: I11.0 Hypertensive heart disease with heart failure (principal)
CPT/HCPCS: 36415; 80048

== ENCOUNTER 2025-03-31 13:33 | Outpatient (OUT) | payer MEDICARE, OTHER, SELFPAY ==
--- OUTSIDE RECORDS SUMMARY | 2024-12-23 07:15 | XMS_ITS ---
Author Organization [facility] in [place] Address [address] [place] [address] Care Team Providers Care Transit Proof Machine Operator Name Role Phone None, Unknown or Primary Care Provider Unavailab Austin Ring Unavailable [phone] REASON FOR VISIT [facility] Encounters Encounter Location Date Provider Diagnosis [facility] [address] [place] [address] 12/23/2024 Austin Leary Plan Of Treatment No Information Progress Notes * Judith LAND ADOB:[birth year] (80 yo F)Acc No.[id number]:12/23/2024 UNLOCKED PROGRESS NOTE Progress Note Patient: Judith ANGELO :?Kavon Leary (RENEA), MDDOB:1945???Age: 79 Y???Sex:FemaleDate:12/23/2024Phone:[phone]:[address] [place], [place] [address]Pcp:Unknown or None Subjective: * Chief Complaints: * 1 . [facility]. * Medical History: Objective: * Vitals: Assessment: Plan: * Treatment: * * Electronic signature of Austin Leary MD, [id number] on 03/31/2025 at 01:38 PM EDT Sign off status: PendingVisit Status:?CANC (Cancelled) * Provider: Franky YostTTCMD Gilbert Date: 0 12/23/2024 Generated for Printing/Faxing/eTransmitting on:?03/31/2025 01:38 PM EDT
--- OUTSIDE RECORDS SUMMARY | 2025-03-23 13:40 | XMS_ITS | Encounter Summary ---
Author Organization [facility] Address [address] [place] [address] Care Team Providers Care Wind Turbine Service Technician Name Role Phone Linda Minaya MD Primary Care Provider [phone] Reason for Visit * ReasonCommentsFollow-upPatient is here today for a 6 week follow appointment with labs. Patient was recently at [facility] for auti. 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 (CMS/HCC); Paroxysmal atrial fibrillation (CMS/HCC) Social History Tobacco UseTypesPacks/DayYears UsedDateSmoking Tobacco: FormerCigarettesQuit: 2018Smokeless Tobacco: Never Tobacco Cessation:Counseling Given: Not Answered Alcohol UseStandard Drinks/WeekCommentsNever0 (1 standard drink = 0.6 oz pure alcohol)[facility] UtilitiesAnswerDate RecordedIn the past 12 months has the electric, gas, oil, or water company threatened to shut off services in your home?No 09/17/2023Humiliation, Afraid, Rape, and Kick questionnaireAnswerDate Recorded Within the last year, have you been afraid of your partner or ex-partner?No 11/27/2023Emotionally AbusedNot on file11/27/2023hysically AbusedNot on file 11/27/2023Sexually AbusedNot on file11/27/2023Overall Financial Resource Strain (CARDIA)AnswerDate RecordedHow hard is it for you to pay for the very basics like food, housing, medical care, and heating?Not very hard09/17/2023HQ-2Answer Date RecordedPatient Health Questionnaire-2 Oxdhk831TransportationAnswer Date RecordedIn the past 12 months, has lack of transportation kept you from medical appointments or from getting medications?No09/17/2023Lack of Transportation (Non-Medical)Not on file09/17/2023Housing Stability Vital Sign AnswerDate RecordedUnable to Pay for Housing in the Last YearNot on file 09/17/2023Number of Places Lived in the Last YearNot on file09/17/2023In the last 12 months, was there a time when you did not have a steady place to sleep or slept in ashelter (including now)?No09/17/2023Hunger Vital SignAnswerDate RecordedWithin the past 12 months, you worried that your food would run out before you got the money to buymore.Never true09/17/2023an Out of Food in the Last YearNot on file09/17/2023CommentsNoSex and Gender InformationValue Date RecordedSex Assigned at NcyaxFoyrjb05/04/2024 5:42 AM ESTLegal SexFemale 12/07/2021 9:55 PM EDTGender IinxofykHmksho43/04/2024 5:42 AM ESTSexual OrientationHeterosexual or Hjffkqxh36/04/2024 5:42 AM ESTdocumented as of this encounter Last Filed Vital Signs Vital SignReadingTime TakenCommentsBlood Gphqgqah164/5810 1:49 PM EDT Gnxcu7897 1:49 PM EDTTemperature--Respiratory Rate--Oxygen Zjsjpngkaj78% 03/23/2025 1:49 PM EDTInhaled Oxygen Concentration--Opnfow45.9 kg (99 lb) 03/23/2025 1:49 PM YLSXnjmfb287.6 cm (5' 6 )03/23/2025 1:49 PM EDTBody Mass Index15.9803/23/2025 1:49 PM EDTdocumented in this encounter Functional Status * BPAnswerDate of DyvnxrvsmwZtgwlf717/5803/23/2025 1:49 PM EDAngy Gamez MA * PulseAnswerDate of VkisvuskovPegjhi6390/13/2025 1:49 PM EDAngy Gamez MA * Patient PositionAnswerDate of MescvenvilVhmntlAlyeyfd70/13/2025 1:49 PM EDT Angy Dolan MA * BPAnswerDate of EsczjbzixcMjhojv055/5803/23/2025 1:49 PM EDAngy Gamez MA * PulseAnswerDate of AykmpoxkyuHrzqif0421/13/2025 1:49 PM EDAngy Gamez MA * DaR0UpilneTtvl of QblfmdwbkpXrmpmi7631/13/2025 1:49 PM EDAngy Gamez MA * BP LocationAnswerDate of AssessmentAuthorLeft arm03/23/2025 1:49 PM EDT Angy Dolan MA * Patient PositionAnswerDate of YaqpgdrkrxJpqyksFjwbsuf34/13/2025 1:49 PM EDT Angy Dolan MA documented as of this encounter Progress Notes * Tony Crockett CNP - 03/23/2025 1:40 PM EDT Images from the original note were not included. SUBJECTIVE Reason for Visit: Judith Land is a 80 y.o. year old female patient being seen for 6-week follow-up. HPI: Judith Land is a 80 y.o. year old female with significant medical history of hypertension, hyperlipidemia, COPD, and Parkinson's. Recent emergency room visit 10/23/2024 reported eating dinner and had emesis episode, CTA was consistent with aspiration pneumonia. 03/18/2025 office visit: Patient was seen and evaluated in the office today. She reports doing well overall. Her lower extremity edema has resolved. Denies chest pain, shortness of breath, palpitations, lightheadedness or dizziness, or lower extremity edema. She notes that she was hospitalized in February for UTI for a few days. Will obtain records and labs. 01/06/2025 office visit: Patient seen and evaluated [...] palpitations, lightheadedness or dizziness. 08/13/2024 office visit (Rylie Morris): Judith Land is a 79 y.o. [...] Has had some LE edema lately. Dr. Leary gave her RX for compression stockings. He [...] not heard. Diastolic Murmur: not heard. Extremities: no edema Peripheral Pulses: Pulses: full and equal [...] ALPRAZolam (Xanax) 1 mg tablet 1 tablet, Every morning amantadine (Symmetrel) 100 mg tablet [...] AND 5PM* cholecalciferol (VITAMIN D-3) 2,000 Units, Daily RT cyclobenzaprine (FLEXERIL) 10 mg, 2 times daily PRN dilTIAZem CD (CARDIZEM CD) 180 mg, Daily RT gabapentin (Neurontin) 300 mg capsule TAKE 1 CAPSULE BY MOUTH ONCE DAILY X3DAYS, 1 CAPSULE TWICE DAILY X3DAYS THEN 1 CAPSULE 3 TIMES DAILY hydrALAZINE (APRESOLINE) 50 mg, 2 times daily hydroCHLOROthiazide (HYDRODIURIL) 25 mg, oral, Daily isosorbide mononitrate ER (IMDUR) 60 mg, Daily Klor-Con M20 20 mEq ER tablet 20 mEq, 2 times daily lisinopril 40 mg, oral, Daily pantoprazole (ProtoNix) 40 mg EC tablet TAKE 1 TABLET BY MOUTH ONCE A DAY BEFORE BREAKFAST *DO NOT CRUSH/CHEW/SPLIT* pravastatin (PRAVACHOL) 20 mg, Nightly QUEtiapine (SEROQUEL) 25 mg, Nightly rasagiline (AZILECT) 1 mg, Daily rOPINIRole (Requip) 0.5 mg tablet Every 8 hours spironolactone (ALDACTONE) 25 mg, oral, Daily sucralfate (CARAFATE) 1 g, Daily Recent Labs: No visits with results within 2 Month(s) from this visit. Latest known visit [...] 09/18/2023 316 QTC CALCULATION(BAZETT) 09/18/2023 429 P [place] 09/18/2023 69 R-[place] 09/18/2023 -10 T Wave [place] 09/18/2023 82 Immature Granulocytes % 09/18/2023 0.3 Neutrophils Absolute 09/18/2023 5.3 Lymphocytes Absolute 09/18/2023 0.77 (L) Monocytes Absolute 09/18/2023 0.36 Eosinophils Absolute 09/18/2023 0.00 Basophils Absolute 09/18/2023 0.01 Neutrophils % 09/18/2023 82.1 (H) Lymphocytes % 09/18/2023 11.9 (L) Monocytes % 09/18/2023 5.5 Eosinophils % 09/18/2023 0.0 Basophils % 09/18/2023 0.2 Immature Granulocytes Ab* 09/18/2023 0.02 Sodium 09/18/2023 138 Potassium 09/18/2023 4.5 Chloride 09/18/2023 107 CO2 09/18/2023 25 BUN 09/18/2023 21 Creatinine 09/18/2023 0.93 Glucose 09/18/2023 112 (H) Calcium 09/18/2023 9.0 Anion Gap 09/18/2023 11 eGFR 09/18/2023 63.3 BUN/Creatinine Ratio 09/18/2023 22.6 Auto WBC 09/18/2023 6.97 RBC 09/18/2023 4.22 Hemoglobin 09/18/2023 13.0 Hematocrit 09/18/2023 40.5 MCV 09/18/2023 96.0 MCH 09/18/2023 30.8 MCHC 09/18/2023 32.1 RDW 09/18/2023 14.5 Platelets 09/18/2023 309 I have personally reviewed and anaylzed the following laboratory results above. These findings havebeen analyzed in the context of the patient's clinical presentation. Cardiovascular Diagnostic Studies: TTE 10/27/2024: Conclusion: 1. Mild concentric LVH with normal systolic function. LVEF 60-65% 2. Normal right ventricular size systolic function. 3. Mild mitral and tricuspid regurgitation. 4. Moderately dilated left atrium. 5. Mildly elevated right-sided pressures. RVSP is 46 mmHg. ECHO 06/01/2023 1. Normal ventricular function. LVEF is 60%. 2. No significant valvular dysfunction. 3. Normal right-sided pressures. 4. There is evidence of compression of the lateral wall of the left atrium likely related to presence of a large hiatal hernia. Further dedicated imaging is recommended ECHO 2023 1. Normal ventricular systolic function. LVEF is 55 to 60%. 2. No significant valvular dysfunction.3. Mildly elevated right-sided pressures. CTA chest 2023 Cardiovascular: The heart is normal in size. Moderate scattered coronary artery calcifications are present. There is severe scattered atherosclerotic disease throughout the thoracic aorta. Multifocalectasia is present with dilation of the distal thoracic aorta measuring 3.0 cm in diameter. 1. No pulmonary embolus identified. 2. Severe emphysematous disease. 3. Stable right apical scarring and bibasilar atelectasis or scarring. Stress test 05/24/2022 Normal myocardial perfusion scan EKG showed inferolateral ST segment downsloping and 2mm ST segement depression. Pt was symptomatic during study. 12 Lead ECG 10/26/2024: 12 Lead ECG: No results found for this or any previous visit (from the past 4464 hours). I have personally reviewed and analyzed all available cardiac diagnostic tests and imaging reports.Findings have been analyzed in the context of the patient's clinical status. Assessment and Plan #HFpEF #Bilateral lower extremity edema NYHA I +2-3 LE edema Denies any SOB Weight today is 103 pounds Most recent TTE, 10/27/2024: EF 60 to 65%, mildly elevated right-sided pressures RVSP 46 mmHg. proBNP 894 Spironolactone along with lisinopril discontinued recently due to worsening kidney function History of multiple UTIs - not candidate for SGLT2 inhibitor Labs 03/02/2025: Sodium 138, potassium 4.2, BUN 24, creatinine 1.21, eGFR 45, glucose 98, calcium 11.6, albumin 4.5. Labs 01/30/2025: Sodium 139, potassium 4.9, glucose 98, BUN 27, creatinine 1.33, eGFR 39, calcium 10.9 GDMT: - Continue spironolactone 25 mg daily #Hypertension Blood pressure today is 138/58, heart rate 66 Elevated Per patient blood pressure at [facility] is controlled will request records Previously on spironolactone, amlodipine, lisinopril and discontinued sometime this year due to worsening renal function - Continue hydralazine 50 mg twice daily - Continue spironolactone 25 mg daily (initiated/resume 01/07/2025) #Paroxysmal A-fib [id number] = at least 4 (female, age, hypertension) During October visit our cardiology service was consulted and there is note of 1 strip showing A-fib. Family also mentions another hospital a singular episode of A-fib. Otherwise there is no documented A-fib It was advised at that time that anticoagulation would carry a high risk given her frailty, excessive bruising and high risk of bleeding. Given that the send of atrial fibrillation is low, we can withhold anticoagulation for the time being. - Continue diltiazem 180 mg daily - Continue aspirin 81 mg daily #Abnormal stress test Abnormal stress with EKG changes but no perfusion defects She continues to deny c/o chest pain. She reports METS >4. Discussed again ischemic eval with coronary angiogram as previously discussed with Dr. Luke. She continues to decline. - Continue aspirin 81 mg daily - Continue pravastatin 40 mg daily #Hyperlipidemia Lipid panel December 2024: LDL 89, HDL 87, triglycerides 92 Stable - Continue pravastatin 20 mg daily #CKD 3B Labs 01/30/2025: Sodium 139, potassium 4.9, glucose 98, BUN 27, creatinine 1.33, eGFR 39, calcium 10.9 Labs 01/06/2025: Sodium 140, potassium 4.4, glucose 90, BUN 22, creatinine 1.12, EGFR 47, proBNP 194, albumin 3.9, hemoglobin 12.2 Labs 10/28/2024: BUN 54, creatinine 1.95, EGFR 25, potassium 3.5, sodium 160 #COPD Plan Overview: Follow-up in 3 months This note was partially composed using voice recognition software. While every effort was made to ensure accuracy, some unintentional technical report writer errors may be present. Tony Crockett, [facility] Cardiovascular Medicine [1] Past Medical History: Diagnosis Date Chronic gastric ulcer without hemorrhage and without perforation COPD (chronic obstructive pulmonary disease) (CMS/HCC) Emphysema lung ([facility]/HCC) HISTORY OF Hiatal hernia 05/2023 Hyperlipidemia Hypertension Parkinson disease ([facility]/HCC) Renal stones TIA (transient ischemic attack) 06/2023 SYMPTOMS UPJ obstruction, acquired UTI (urinary tract infection) 06/2023 [2] Past Surgical History: Procedure Laterality Date CARDIAC CATHETERIZATION FOOT SURGERY HYSTERECTOMY UPPER GASTROINTESTINAL ENDOSCOPY [3] Patient Active Problem List Diagnosis History of [...] Right hemiplegia (CMS/HCC) RLS (restless legs syndrome) Abnormal weight loss Acute delirium Acute gastroenteritis Acute urinary tract infection Anxiety Aspiration pneumonia (CMS/HCC) Bilateral lower extremity edema Cachexia Acute exacerbation of chronic obstructive airways disease ([facility]/HCC) Closed fracture of carpal bone Congestive heart failure (CMS/HCC) Dysuria Elevated troponin I level Encephalopathy 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) Fracture of left superior pubic ramus (CMS/HCC) Generalized anxiety disorder Hypernatremia Hypokalemia Edema Impaired mobility and activities of daily living Lumbar spondylosis Metabolic encephalopathy Muscle wasting Personal history of transient ischemic attack (TIA), and 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 (CMS/HCC) [4] Social History Tobacco Use Smoking status: Former Current packs/day: 0.00 Types: Cigarettes Quit date: 2017 Years since quittin.7 Smokeless tobacco: Never Substance Use Topics Alcohol use: Never Drug use: Never [5] Allergies Allergen Reactions Sulfa (Sulfonamide Antibiotics) Anaphylaxis Trimethoprim Shortness of breath Ciprofloxacin Unknown Other Reaction(s): Unknown Trazodone Other reaction(s): Shaking/ Tremors documented in this encounter Plan of Treatment DateTypeDepartmentCare Team (Latest Contact Info)Elpieovpgrs26/21/2026 1:00 PM ESTOffice Visit [facility] [address] [place] [address] Tony Crockett CNP [address] [place] [address] documented as of this encounter Visit Diagnoses Diagnosis Chronic heart failure with preserved ejection fraction (CMS/HCC)- Primary Bilateral leg edema Edema 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
--- OUTSIDE RECORDS SUMMARY | 2025-03-31 13:37 | XMS_ITS | Encounter Summary ---
Author Organization [facility] Address [address] [place] [address] Care Team Providers Care Safety Council Director Name Role Phone Lauro Mcnamara MD Primary Care Provider [phone] Teodora Jaramillo RIB CLOTH KNITTER Unavailable Encounter Details DateTypeDepartmentCare Team (Latest Contact Info)Gbymtvoeibu41/10/2025bstract [facility] [place] [facility] [address] [place] [address] Lauro Mcnamara MD [address] [place] [address] Social History Tobacco UseTypesPacks/DayYears UsedDateSmoking Tobacco: ZpjmmnJbouuiqpcc73/2018 - 1968Smokeless Tobacco: NeverAlcohol UseStandard Drinks/WeekCommentsNever0 (1 standard drink = 0.6 oz pure alcohol)caffeine: 1-2 cups per dayPHQ-2AnswerDate RecordedPatient Health Questionnaire-2 Ibztg941CommentsUnknown Sex and Gender InformationValueDate RecordedSex Assigned at BirthNot on file Legal DfzKjjxll95/15/2023 7:18 PM EDTGender IdentityNot on fileSexual OrientationNot on filedocumented as of this encounter Plan of Treatment DateTypeDepartmentCare Team (Latest Contact Info)Chdlxnlvefh01/23/2025 10:30 AM EDTOffice Visit [facility] [place] [facility] [address] [place] [address] Teodora Jaramillo, RIB CLOTH KNITTER [address] [place] [address] 05/21/2025 11:30 AM ESTOffice Visit [facility] [place] [facility] [address] [place] [address] Teodora Jaramillo, RIB CLOTH KNITTER [address] [facility] [address] [place] [address] documented as of this encounter Visit Diagnoses Not on filedocumented in this encounter Care Teams Team MemberRelationshipSpecialtyStart DateEnd Date Lauro Mcnamara MD [address] [facility] [address] [place] [address] PCP - GeneralInternal Medicine12/25/24 Teodora Jaramillo, RIB CLOTH KNITTER [address] [place] [address] Nurse PractitionerFamily Medicine12/25/24documented as of this encounter
--- OUTSIDE RECORDS SUMMARY | 2025-03-31 13:37 | XMS_ITS | Encounter Summary ---
Author Organization [facility] Address [address] [place] [address] Care Team Providers Care Potato Peeling Machine Operator Name Role Phone Lauro Mcnamara MD Primary Care Provider [phone] Teodora Jaramillo CIGARETTE STAMPER Unavailable Encounter Details DateTypeDepartmentCare Team (Latest Contact Info)Popruduxcsc21/10/2025Patient Outreach [facility] [address] [place] [address] Jeni Bazzi LPN Social History Tobacco UseTypesPacks/DayYears UsedDateSmoking Tobacco: AxxgcxFeouuahzik33/2018 - 1967Smokeless Tobacco: NeverAlcohol UseStandard Drinks/WeekCommentsNever0 (1 standard drink = 0.6 oz pure alcohol)caffeine: 1-2 cups per dayPHQ-2AnswerDate RecordedPatient Health Questionnaire-2 Hdauq066CommentsUnknown Sex and Gender InformationValueDate RecordedSex Assigned at BirthNot on file Legal EowSxylet32/15/2023 7:18 PM EDTGender IdentityNot on fileSexual OrientationNot on filedocumented as of this encounter Progress Notes * Jeni Bazzi LPN - 03/20/2025 11:47 AM EDT <March 20, 2025, 11:51 - Jeni Bazzi LPN> Caled and spoke with her daughter Patricia and [facility]. She is still very weak the do take her down to the therapy gym she is working on leg strengthening now due to pt not able to stand or pivot she believes it might be the parkinsons advancing but she is trying. No dc date documented in this encounter Plan of Treatment DateTypeDepartmentCare Team (Latest Contact Info)Fliuiffdege09/23/2025 10:30 AM EDTOffice Visit [facility] [place] [facility] [address] [place] [address] Teodora Jaramillo, CIGARETTE STAMPER [address] [place] [address] 05/21/2025 11:30 AM ESTOffice Visit [facility] [place] [facility] [address] [place] [address] Teodora Jaramillo, CIGARETTE STAMPER [address] [place] [address] documented as of this encounter Visit Diagnoses Not on filedocumented in this encounter Care Teams Team MemberRelationshipSpecialtyStart DateEnd Date Lauro Mcnamara MD [address] [place] [address] PCP - GeneralInternal Medicine12/25/24 Teodora Jaramillo, CIGARETTE STAMPER [address] [place] [address] Nurse PractitionerFamily Medicine12/25/24documented as of this encounter
--- OUTSIDE RECORDS SUMMARY | 2025-03-31 13:37 | XMS_ITS | Encounter Summary ---
Author Organization [facility] Address [address] [place] [address] Care Team Providers Care Wedding Cake Designer Name Role Phone Lauro Mcnamara MD Primary Care Provider [phone] Teodora Jaramillo NEPHROLOGY SOCIAL WORKER Unavailable Encounter Details DateTypeDepartmentCare Team (Latest Contact Info)Gsfvdokkagc27/17/2025Patient Outreach [facility] [address] [place] [address] Jeni Bazzi LPN Social History Tobacco UseTypesPacks/DayYears UsedDateSmoking Tobacco: XursdbBetnkjlexm57/2018 - 1966Smokeless Tobacco: NeverAlcohol UseStandard Drinks/WeekCommentsNever0 (1 standard drink = 0.6 oz pure alcohol)caffeine: 1-2 cups per dayPHQ-2AnswerDate RecordedPatient Health Questionnaire-2 Ceisj688CommentsUnknown Sex and Gender InformationValueDate RecordedSex Assigned at BirthNot on file Legal FkmJbsiof12/15/2023 7:18 PM EDTGender IdentityNot on fileSexual OrientationNot on filedocumented as of this encounter Progress Notes * Jeni Bazzi LPN - 03/27/2025 12:16 PM EDT <March 27, 2025, 12:17 - Jeni Bazzi LPN> Called Patricia her daughter and she states that they are going over paperwork for her discharge hometoday. I advised her I will call her on Sunday to see how she is doing. LM for SW to send dc summary documented in this encounter Plan of Treatment DateTypeDepartmentCare Team (Latest Contact Info)Bdodruupjfo27/23/2025 10:30 AM EDTOffice Visit [facility] [place] [facility] [address] [place] [address] Teodora Jaramillo, NEPHROLOGY SOCIAL WORKER [address] [place] [address] 05/21/2025 11:30 AM ESTOffice Visit [facility] [place] [facility] [address] [place] [address] Teodora Jaramillo, NEPHROLOGY SOCIAL WORKER [address] [place] [address] documented as of this encounter Visit Diagnoses Not on filedocumented in this encounter Care Teams Team MemberRelationshipSpecialtyStart DateEnd Date Lauro Mcnamara MD [address] [place] [address] PCP - GeneralInternal Medicine12/25/24 Teodora Jaramillo, NEPHROLOGY SOCIAL WORKER [address] [place] [address] Nurse PractitionerFamily Medicine12/25/24documented as of this encounter
--- OUTSIDE RECORDS SUMMARY | 2025-03-31 13:37 | XMS_ITS | Clinical Summary ---
Author Organization [facility] Address [address] [place] [address] Care Team Providers Care Pigment Pumper Name Role Phone Lauro Mcnamara MD Primary Care Provider [phone] Teodora Jaramillo CHEMICAL PLANT OPERATOR Unavailable Allergies Active AllergyReactionsCriticalityNoted KxpmLcugjsbiUovqcdxkpfsys70/17/2025 Other Reaction(s): Unknown Sulfa Xjbkdgzmuks78/16/2024TrimethoprimShortness of ordotfTtat78/12/2025 Medications MedicationSigDispense QuantityRefillsLast FilledStart DateEnd DateStatus aspirin 81 MG EC tablet Take 81 mg by mouth DailyActive KLOR-CON 20 MEQ ER tablet Take 1 tablet by mouth in the morning and 1 tablet in the evening. Take with meals.06/30/2023ctive [facility] Acetaminophen Ex [facility] 500 MG tablet Take 500 mg by mouth every 6 (six) hours if tkjakd7609/18/2023ctive amantadine (Symmetrel) 100 MG tablet Take 100 mg by mouth in the morning and 100 mg in the evening and 100 mg before bedtime.10/22/2023ctive pantoprazole (ProtoNix) 40 MG EC tablet Take 40 mg by mouth in the morning. Take before meals.Active rasagiline (Azilect) 1 MG tablet Indications:Parkinson's disease (HCC)TAKE 1 TABLET BY MOUTH EVERY DAY 90 tablet ctive carbidopa-levodopa CR (Sinemet CR) 25-100 MG ER tablet TAKE 1 TABLET BY MOUTH 3 TIMES A DAY (7AM, 12PM AND 5PM)06/06/2024ctive Lutein-Zeaxanthin 25-5 MG capsule 1 zkiedvh36/13/2025Active rOPINIRole (Requip) 0.5 MG tablet Take 0.5 mg by mouth at csqlovb99/07/2025Active dilTIAZem CD (Cardizem CD) 180 MG 24 hr capsule Indications:Stage 2 chronic kidney diseaseTake 1 capsule (180 mg) by mouth Daily 100 capsule 5Active hydrALAZINE (Apresoline) 25 MG tablet TAKE 1 TABLET BY MOUTH TWICE A DAY WITH FOOD FOR 30 DAYS5Active ipratropium-albuterol (Duo-Neb) 0.5-2.5 mg/3 mL nebulizer solution Three times daily as needed for xdongylx24/25/2025Active QUEtiapine (SEROquel) 25 MG tablet Indications:AnxietyTake 1 tablet (25 mg) by mouth at bedtime 100 tablet 5Active sennosides ([facility] Senna) 8.6 MG tablet Indications:Constipation, unspecified constipation typeTake 2 tablets (17.2 mg) by mouth in the morning and 2 tablets (17.2 mg) before bedtime. 360 tablet 5Active ALPRAZolam (Xanax) 1 MG tablet Indications:Parkinson's disease, unspecified whether dyskinesia present, unspecified whether manifestations fluctuate (HCC)Take 1.5 tablets (1.5 mg) by mouth at bedtime 1.5 tab 45 tablet 5Active docusate sodium (Colace) 100 MG capsule Indications:Constipation, unspecified constipation typeTake 1 capsule (100 mg) by mouth 3 (three) times a day as needed for constipation 90 capsule 5Active Active Problems ProblemNoted DateDiagnosed DateAcute wlwfuorm71/17/2025ute gastroenteritis 12/25/20245064Erqcniqy16/17/2025Muscle prffqbi1512/25/2024Metabolic encephalopathy 12/25/2024Lumbar cjiihykoyey60/17/2025Impaired mobility and activities of daily sfehfg1112/25/20245375Hztbs90/17/8693Ghzctfprirg15/17/6569Dvcttflwkswfc66/17/2025High ljawoxtwtqi82/17/2025Gastroesophageal reflux vtfubgo9412/25/2024Generalized anxiety mtywhngw16/17/2025Fracture of left superior pubic ramus12/25/2024 Exudative age-related macular cxjobpkedbyk56/17/0470Uuqjrcnyrnyiun98/17/2025 Congestive heart udtuhji4112/25/2024losed fracture of carpal bone12/25/2024 Chronic obstructive pulmonary qbutbpk8812/25/2024achexia ([facility]-HCC)12/25/2024 Aspiration irnqqskvn27/17/2025ilateral lower extremity edema12/25/2024Stage 3b chronic kidney sdqezee9512/25/2024bnormal weight loss12/25/2024Intention tremor 10/25/2023rimary trzaxkpt85/16/2024 Overview (10/25/2023): Patient is following with PCP for this. She takes Xanax at night that helps her get to sleep. RLS (restless legs syndrome)10/25/2023 Overview (10/25/2023): The patient has a diagnosis of RLS. Ferritin level on 10/09/22 was 68 (ordered by PCP) PLAN: - Continue to monitor clinically, See plan as above Cyrixw0310/25/2023 Overview (10/25/2023): The patient demonstrates dyskinesias/choreiform movements and has ataxia with finger to nose testing further supporting the need for intracranial imaging. PLAN: MRI of the brain Carpal tunnel syndrome of right wrist10/25/2023 Overview (10/25/2023): The patient has symptoms concerning for CTS on the right including pain and decreased head refrigeration engineer strength. She admits to previous use of a cock up splint which has been intermittently beneficial. EMG of the RUE 03/29/23 was normal. PLAN: - Recommended continued use of cock up splint - Continue to monitor clinically Zuquofjynnu56/16/2325Dnvfzuftim32/16/2024Right iybnydmlno60/16/2024Other chronic pain10/25/2023 Overview (10/25/2023): The patient reports diffuse and chronic pain of the bilateral arms, legs, and back in no single dermatomal distribution. Symptoms not consistent with a neuropathic process. PLAN: - Referral to pain management Kqudokeetw21/04/2024Memory jchpatt6209/13/20236506Itfcsoxhyyude97/04/2024Incisional hernia, without obstruction or ystuxjnv52/19/2024arkinson's ekrjpmg2608/13/2023 Overview (10/25/2023): It is my impression the patient has [...] significant clinical of Parkinsons also became apparent. Previously mild to moderate tremor now significant along with worsening of other Parkinson's symptoms. We have even attempted smaller doses but again with dyskinesias. Ropinirole has not made a significant impact even with an increase in dose. She is here today following an IP stay for acute weakness thought to be the result ofa freezing episode, CT was nonacute though the patient did decline MRI with IP. Given difficulty thus far treating the patients symptoms I believe it to be reasonable for her to get a tertiary opinion. SHE DID IMPROVE WITH RASAGALINE. PLAN: - Referral to [facility] movement clinic - Continue rasagiline 1mg PO daily; side effects discussed in detail and the patient would like to proceed. Advised patient and family to monitor BP due to cardiovascular risks. - Continue ropinirole 0.25mg 2 PO TID for now - Stopped Sinemet (even at 10/100 mg it caused dyskinesias) - Could consider selegiline in the future given absence of other antidepressants. - I did give consideration to amantadine, though the patient does have motor symptoms as well H/O lqnqmqwiz95/26/2024History of recurrent UTI (urinary tract infection) 03/23/20202163Ezmfvzt54/16/2014Primary kgesdktrunmo96/16/2014 Resolved Problems ProblemNoted DateDiagnosed DateResolved DateAcute kidney igirdwy6312/25/2024 5Acute urinary tract gyvnnjeag08/17/774297/Kidney disease Encounters DateTypeDepartmentCare KlprKteiybsygnt20/20/2025bstract [facility] [place] [facility] [address] [place] [address] Lauro Mcnamara MD 03/27/2025Patient Outreach [facility] [address] [place] [address] Jeni Bazzi, WIRE PREPARATION MACHINE TENDER 03/20/2025Patient Outreach [facility] [address] [place] [address] Jeni Bazzi, WIRE PREPARATION MACHINE TENDER 03/20/2025bstract [facility] [place] [facility] [address] [place] [address] Lauro Mcnamara MD 03/12/2025Patient Outreach [facility] [address] [place] [address] Jeni Bazzi, WIRE PREPARATION MACHINE TENDER 03/12/2025bstract [facility] [place] [facility] [address] [place] [address] Lauro Mcnamara MD 03/06/2025Patient Outreach [facility] [address] [place] [address] Aisha Rodriguez, WIRE PREPARATION MACHINE TENDER 02/23/2025bstract [facility] [place] [facility] [address] [place] [address] Lauro Mcnamara MD 02/23/2025bstract [facility] [place] [facility] [address] [place] [address] Lauro Mcnamara MD 02/23/2025bstract [facility] [place] [facility] [address] [place] [address] Lauro Mcnamara MD 02/23/2025bstract [facility] [place] [facility] [address] [place] [address] Lauro Mcnamara MD 02/23/2025bstract [facility] [place] [facility] [address] [place] [address] Lauro Mcnamara MD 02/23/2025bstract [facility] [place] [facility] [address] [place] [address] Lauro Mcnamara MD 02/19/2025 11:30 AM EDTOffice Visit [facility] [place] [facility] [address] [place] [address] Teodora Jaramillo, CHEMICAL PLANT OPERATOR Parkinson's disease without dyskinesia or fluctuating manifestations (HCC) (Primary Dx); Constipation, unspecified constipation type; Stage 3b chronic kidney disease (CMS-HCC); Primary hypertension ; Bilateral lower extremity edema; Chronic diastolic congestive heart failure (HCC)02/19/2025amboo flowsheet [facility] [place] [facility] [address] [place] [address] Teodora Jaramillo, CHEMICAL PLANT OPERATOR 02/19/20257453Qzstyv59/04/2025bstract [facility] [place] [facility] [address] [place] [address] Lauro Mcnamara MD 02/12/2025bstract [facility] [place] [facility] [address] [place] [address] Lauro Mcnamara MD 02/10/2025bstract [facility] [place] [facility] [address] [place] [address] Lauro Mcnamara MD 02/10/2025bstract [facility] [place] [facility] [address] [place] [address] Lauro Mcnamara MD 02/10/2025bstract [facility] [place] [facility] [address] [place] [address] Lauro Mcnamara MD 02/10/2025bstract [facility] [place] [facility] [address] [place] [address] Lauro Mcnamara MD 02/03/2025Refill [facility] [place] [facility] [address] [place] [address] Lauro Mcnamara MD Parkinson's disease, unspecified whether dyskinesia present, unspecified whether manifestations fluctuate ([facility])02/02/2025bstract [facility] [place] [facility] [address] [place] [address] Lauro Mcnamara MD 01/15/2025Telephone [facility] [place] [facility] [address] [place] [address] Lauro Mcnamara MD 01/12/2025bstract [facility] [place] [facility] [address] [place] [address] Lauro Mcnamara MD 01/12/2025bstract [facility] [place] [facility] [address] [place] [address] Lauro Mcnamara MD 01/06/2025bstract [facility] [place] [facility] [address] [place] [address] Lauro Mcnamara MD 01/06/2025bstract [facility] [place] [facility] [address] [place] [address] Lauro Mcnamara MD 01/01/2025bstract [facility] [place] [facility] [address] [place] [address] Lauro Mcnamara MD 01/01/2025bstract [facility] [place] [facility] [address] [place] [address] Lauro Mcnamara MD 01/01/2025bstract [facility] [place] [facility] [address] [place] [address] Lauro Mcnamara MD 01/01/2025bstract [facility] [place] [facility] [address] [place] [address] Lauro Mcnamara MD from Last 3 Months Immunizations ImmunizationAdministration DatesNext DueInfluenza, High Dose Seasonal, Preservative Free02/21/2018Influenza, trivalent, /04/2021,03/18/2020 ,04/08/2019Pneumococcal Polysaccharide EZYY2953Unknown outside ircxdgccdfym21/03/2022 Family History Medical HistoryRelationNameCommentsCancerFatherHypertensionMotherStrokeMother hearing deficiencyOtherCancerSiblingStrokeSiblingRelationNameStatusComments FatherDeceasedMotherDeceasedOtherSibling Social History Tobacco UseTypesPacks/DayYears UsedDateSmoking Tobacco: HitjgtYwduxqyrri82/2018 - 1968Smokeless Tobacco: Never Tobacco Cessation:Counseling Given: Yes Alcohol UseStandard Drinks/WeekCommentsNever0 (1 standard drink = 0.6 oz pure alcohol)caffeine: 1-2 cups per dayPHQ-2AnswerDate RecordedPatient Health Questionnaire-2 Dekcf890CommentsUnknownSex and Gender InformationValueDate RecordedSex Assigned at BirthNot on fileLegal SexFemale 08/23/2022 7:18 PM EDTGender IdentityNot on fileSexual OrientationNot on file Last Filed Vital Signs Vital SignReadingTime TakenCommentsBlood Puufvyck530/62002/19/2025 11:33 AM EDT Dmucb3895/11/2025 11:33 AM EDTTemperature--Respiratory Zjwo598302/19/2025 11:33 AM EDTOxygen Pujvmrqmvr24%02/19/2025 11:33 AM EDTInhaled Oxygen Concentration-- Cpaedz50.5 kg (98 lb)02/19/2025 11:33 AM OKHCmwwta966.1 cm (5' 5 )02/19/2025 11:33 AM EDTBody Mass Index16.31002/19/2025 11:33 AM EDT Plan of Treatment DateTypeDepartmentCare Team (Latest Contact Info)Pgdrqaaasuk29/23/2025 10:30 AM EDTOffice Visit [facility] [place] [facility] [address] [place] [address] Teodora Jaramillo, CHEMICAL PLANT OPERATOR [address] [place] [address] 05/21/2025 11:30 AM ESTOffice Visit [facility] [place] [facility] [address] [place] [address] Teodora Jaramillo, CHEMICAL PLANT OPERATOR [address] [facility] [address] [place] [address] Health MaintenanceDue DateLast DoneCommentsPneumococcal Vaccine: 65+ Years (2 of 2 - PCV)/Influenza Vaccine (#1)/09/2020, 03/18/2020, 04/08/2019, Additional history exists Insurance Care Teams Team MemberRelationshipSpecialtyStart DateEnd Date Lauro Mcnamara MD [address] [facility] [address] [place] [address] PCP - GeneralInternal Medicine12/25/24 Teodora Jaramillo, MIRELLA [address] [facility] [address] [place] [address] Nurse PractitionerFami Medicine12/25/24
--- OUTSIDE RECORDS SUMMARY | 2025-03-31 13:38 | XMS_ITS | Encounter Summary ---
Author Organization [facility] Address [address] [place] [address] Care Team Providers Care Hvac Installer Name Role Phone Lauro Mcnamara MD Primary Care Provider [phone] Teodora Jaramillo MANAGER TRANSFUSION Unavailable Encounter Details DateTypeDepartmentCare Team (Latest Contact Info)Wnomvylwupf00/20/2025bstract [facility] [place] [facility] [address] [place] [address] Lauro Mcnamara MD [address] [place] [address] Social History Tobacco UseTypesPacks/DayYears UsedDateSmoking Tobacco: AxhycmKvkwmafbfg15/2018 - 1967Smokeless Tobacco: NeverAlcohol UseStandard Drinks/WeekCommentsNever0 (1 standard drink = 0.6 oz pure alcohol)caffeine: 1-2 cups per dayPHQ-2AnswerDate RecordedPatient Health Questionnaire-2 Wmeko295CommentsUnknown Sex and Gender InformationValueDate RecordedSex Assigned at BirthNot on file Legal LyoFrcsta35/15/2023 7:18 PM EDTGender IdentityNot on fileSexual OrientationNot on filedocumented as of this encounter Plan of Treatment DateTypeDepartmentCare Team (Latest Contact Info)Neuldjzllae45/23/2025 10:30 AM EDTOffice Visit [facility] [place] [facility] [address] [place] [address] Teodora Jaramillo, MANAGER TRANSFUSION [address] [place] [address] 05/21/2025 11:30 AM ESTOffice Visit [facility] [place] [facility] [address] [place] [address] Teodora Jaramillo, MANAGER TRANSFUSION [address] [facility] [address] [place] [address] documented as of this encounter Visit Diagnoses Not on filedocumented in this encounter Care Teams Team MemberRelationshipSpecialtyStart DateEnd Date Lauro Mcnamara MD [address] [facility] [address] [place] [address] PCP - GeneralInternal Medicine12/25/24 Teodora Jaramillo, MANAGER TRANSFUSION [address] [place] [address] Nurse PractitionerFamily Medicine12/25/24documented as of this encounter
--- OUTSIDE RECORDS SUMMARY | 2025-03-31 13:38 | XMS_ITS | Clinical Summary ---
Author Organization [facility] Address [address] [place] [address] Care Team Providers Care Food And Beverage Manager Name Role Phone Linda Minaya MD Primary Care Provider [phone] Allergies Active AllergyReactionsCriticalityNoted DateCommentsCiprofloxacinUnknown 12/25/2024 Other Reaction(s): Unknown Nitrofurantoin Monohyd/M-NysklGrxoVhe98/02/2025Sulfa (Sulfonamide Antibiotics) KgbxcmhzurmGfip37/22/2014Sulfamethoxazole-BtmtefztddlzYwtvycm98/25/2025Trazodone 09/26/2023 Other reaction(s): Shaking/ Tremors TrimethoprimShortness of dubknmXgtm95/12/2025 Medications MedicationSigDispense QuantityRefillsLast FilledStart DateEnd DateStatus cholecalciferol (Vitamin D-3) 50 MCG (1999 UT) tablet Take 2,000 Units by mouth in the morning.Active pravastatin (Pravachol) 20 mg tablet Take 20 mg by mouth at bedtime.Active Klor-Con M20 20 mEq ER tablet Take 20 mEq by mouth in the morning and at bedtime.05/05/2022ctive isosorbide mononitrate ER (Imdur) 60 mg 24 hr tablet Take 60 mg by mouth in the morning.05/10/2022ctive rOPINIRole (Requip) 0.5 mg tablet every 8 (eight) hours.Active rasagiline (Azilect) 1 mg tablet 1 mg 1 (one) time each day.07/20/2023ctive gabapentin (Neurontin) 300 mg capsule TAKE 1 CAPSULE BY MOUTH ONCE DAILY X3DAYS, 1 CAPSULE TWICE DAILY X3DAYS THEN 1 CAPSULE 3 TIMES DAILY07/30/2023ctive cyclobenzaprine (Flexeril) 10 mg tablet Take 10 mg by mouth if needed in the morning and at bedtime.07/30/2023ctive ALPRAZolam (Xanax) 1 mg tablet Take 1 tablet by mouth in the morning.02/10/2020Active carbidopa-levodopa (Sinemet) 25-100 mg tablet TAKE 1/2 TABLET BY MOUTH 3 TIMES A DAY FOR 7 DAYS THEN 1 TABLET 3 TIMES A DAY *7AM, NOON AND 5PM*09/13/2023ctive amantadine (Symmetrel) 100 mg tablet TAKE 1 TABLET BY MOUTH TWO TIMES A DAY. TAKE WITH FIRST AND SECOND DOSE OF SINEMET.Active aspirin 81 mg EC tablet 1 (one) time each day at the same time.Active pantoprazole (ProtoNix) 40 mg EC tablet Indications:Acute gastric ulcer without hemorrhage or perforationTAKE 1 TABLET BY MOUTH ONCE A DAY BEFORE BREAKFAST *DO NOT CRUSH/CHEW/SPLIT* 90 tablet 1105Active Additional Information Patient not taking.Reported on 03/23/2025 sucralfate (Carafate) 1 gram tablet Take 1 g by mouth in the morning.Active lisinopril 40 mg tablet Indications:Essential hypertensionTake 1 tablet (40 mg) by mouth in the morning. 30 tablet 11008/13/4179726Active Additional Information Patient not taking.Reported on 03/23/2025 hydroCHLOROthiazide (HYDRODiuril) 25 mg tablet Indications:Essential hypertensionTake 1 tablet (25 mg) by mouth in the morning. 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 30 tablet 11001/07/0344326Active cephalexin (Keflex) 500 mg capsule Take 1 capsule by mouth every 6 (six) hours during the day.02/27/2025tive methenamine hippurate (Hiprex) 1 gram tablet Take 1 g by mouth every 12 (twelve) hours.03/09/2025tive albuterol 0.63 mg/3 mL nebulizer solution Take 0.63 mg by nebulization every 4 (four) hours if needed. Active Problems ProblemNoted DateDiagnosed DateHistory of stroke without residual deficits 03/20/2025Encounter for bcphbzkwauzb92/26/2025onstipation, unspecified 03/05/2025Other speech xifoweqftjre94/25/2025Polyneuropathy, unspecified 03/05/2025therosclerotic heart disease of lower [place] coronary artery without angina tbvzhwic26/24/2025Hallucinations, ntlmzxwsikk87/24/2025Pseudomonas (aeruginosa) (mallei) (pseudomallei) as the cause of diseases classified njugkwrfo89/24/2025 Unspecified severe protein-calorie ctjxirzdqoyw23/24/2025ute urinary tract gvludoahm46/29/2025ute exacerbation of chronic obstructive airways disease 01/06/2025ongestive heart dqdpktv9901/06/20259247Paluhkc92/29/2025Elevated troponin I level01/06/2025Personal history of transient ischemic attack (TIA), and cerebral infarction without residual /29/2025bnormal weight loss12/25/2024 Acute ccqqxotk88/17/2025ute liozkrbrrzodgdv65/17/2025spiration pneumonia 12/25/2024ilateral lower extremity edema12/25/20240503Xdxnikut53/17/2025losed fracture of carpal bone12/25/20240285Djmykgnoenzyrk36/17/2025Exudative age-related macular smaveqwkblyi58/17/2025Fracture of left superior pubic ramus12/25/2024 Generalized anxiety dmhjybjb00/17/4869Znqekgxuhkksy56/17/2025Hypokalemia 12/25/20248547Dqfnj53/17/2025Impaired mobility and activities of daily living 12/25/2024Lumbar zxxrtcagnde83/17/2025Metabolic jhrumasbsrqyhp89/17/2025Muscle cywgggo1112/25/2024Stage 3b chronic kidney cbqrmtf0112/25/2024Nutritional deficiency, zlnvnpnihou45/27/2025Difficulty in walking, not elsewhere classified 11/03/2024Muscle weakness (generalized)5Cognitive communication deficit 11/02/2024Dysphagia, oropharyngeal phase5Acquired absence of both cervix and pgomzp9610/23/2024quired absence of other specified parts of digestive tract5Acquired absence of isqjih4510/23/2024ute kidney failure, uiffstlpcpu19/15/1361Oecclp70/16/2024 Overview (11/27/2023): The patient demonstrates dyskinesias/choreiform movements and has ataxia with finger to nose testing further supporting the need for intracranial imaging. PLAN: MRI of the brain Carpal tunnel syndrome of right wrist10/25/2023 Overview (11/27/2023): The patient has symptoms concerning for CTS on the right including pain and decreased elevator erector strength. She admits to previous use of a cock up splint which has been intermittently beneficial. EMG of the RUE 03/29/23 was normal. PLAN: - Recommended continued use of cock up splint - Continue to monitor clinically Voetqmifhf41/16/2024Intention xjvxfj8610/25/2023Other chronic pain10/25/2023 Overview (11/27/2023): The patient reports diffuse and chronic pain of the bilateral arms, legs, and back in no single dermatomal distribution. Symptoms not consistent with a neuropathic process. PLAN: - Referral to pain management Mnjillhezwc25/16/2024rimary /16/2024 Overview (11/27/2023): Patient is following with PCP for this. She takes Xanax at night that helps her get to sleep. Right itzdcykekn74/16/2024RLS (restless legs syndrome)10/25/2023 Overview (11/27/2023): The patient has a diagnosis of RLS. Ferritin level on 10/09/22 was 68 (ordered by PCP) PLAN: - Continue to monitor clinically, See plan as above Incisional hernia without obstruction or /09/2024ostoperative incisional hirxpn5509/17/20236625Skpyvdqwcrylk06bnormal posture Memory wavfpjy92Neuropathy09/13/2023 09/26/2023Incisional hernia, without obstruction or ditafgca63/19/2024 Parkinson's qeumvfq1808/13/2023H/O xpzleeyel63Kidney disease Hiatal qilgon2607/06/2023 Assessment & Plan (07/06/2023 8:28 PM EST): Hiatal hernia with compression on Lt atrium noted on TTE Referral to general surgery ordered Other yyrxypk5101/12/2023 Assessment & Plan (01/12/2023 1:36 PM EDT): Will have pt hold metoprolol and see if her fatigue improves Continue to monitor b/p at home and call office for b/p increase greater than 130/80 or for any concerns. History of recurrent UTI (urinary tract infection)03/23/2020Ureteral stricture 03/23/2020Renal stone02/20/2020UPJ (ureteropelvic junction) obstruction 02/20/20209348Jshboqgswxyzlf34/08/2015 Assessment & Plan (01/12/2023 1:37 PM EDT): Continue statin Dukbtilmynrm26/22/2014 Assessment & Plan (07/06/2023 8:28 PM EST): Hypertension is stable and well controlled Continue all meds as prescribed- norvasc, lisinopril- hydrochlorothiazide, metoprolol Assessment & Plan (01/12/2023 1:37 PM EDT): Hypertension is elevated in office most likely r/t white coat syndrome States b/p at home is typically 120's/70's Pre-operative cardiovascular exam, new EKG abnormalities c/w tycigkod02/22/2014 Veahnno7706/26/2013 Encounters DateTypeDepartmentCare GhtgKtyubjdaegn15/13/2025 1:40 PM EDTOffice Visit [facility] [address] [place] [address] Tony Crockett CNP Chronic heart failure with preserved ejection fraction (CMS/HCC) (Primary Dx); Bilateral leg edema; 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 (CMS/HCC); Paroxysmal atrial fibrillation (CMS/HCC)01/07/2025Orders Only [facility] [address] [place] [address] Carol Ann Jones MA Benign hypertensive heart disease with heart failure (CMS/HCC) (Primary Dx) 01/06/2025 2:40 PM EDTOffice Visit [facility] [address] [place] [address] Tony Crockett CNP 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 (CMS/HCC) (Primary Dx); Bilateral leg edema; Chronic heart failure with preserved ejection fraction (CMS/HCC); Paroxysmal atrial fibrillation (CMS/HCC); Mixed hyperlipidemia; Abnormal stress testfrom Last 3 Months Family History Medical HistoryRelationNameCommentsStrokeBrotherStrokeMaternal GrandmotherStroke MotherCoronary artery diseaseMother's SistercabgMother's SisterRelationName StatusCommentsBrotherFatherDeceasedMaternal GrandmotherMotherDeceasedMother's Sister Social History Tobacco UseTypesPacks/DayYears UsedDateSmoking Tobacco: FormerCigarettesQuit: 2018Smokeless Tobacco: Never Tobacco Cessation:Counseling Given: Not Answered Alcohol UseStandard Drinks/WeekCommentsNever0 (1 standard drink = 0.6 oz pure alcohol)[facility] UtilitiesAnswerDate RecordedIn the past 12 months [...] heating?Not very hard09/17/2023HQ-2Answer Date RecordedPatient Health Questionnaire-2 Emjud685TransportationAnswer Date RecordedIn the past 12 months, has [...] steady place to sleep or slept in andrewselter (including now)?No09/17/2023Hunger Vital SignAnswerDate RecordedWithin the past 12 months, you worried that your food would run out before you got the money to buymore.Never true09/17/2023an Out of Food in the Last YearNot on file09/17/2023CommentsNoSex and Gender InformationValue Date RecordedSex Assigned at UwhihOeewtt59/04/2024 5:42 AM ESTLegal SexFemale 12/07/2021 9:55 PM EDTGender HfzmhtrjRmzfya77/04/2024 5:42 AM ESTSexual OrientationHeterosexual or Sjfkyjam38/04/2024 5:42 AM EST Last Filed Vital Signs Vital SignReadingTime TakenCommentsBlood Yjsgkdup770/5803/23/2025 1:49 PM EDT Odysx066203/23/2025 1:49 PM QYSCdlmrqpqtzc53.3 ??C (97.4 ??F)11/27/2023 12:58 PM EDTRespiratory Qoog003309/18/2023 12:00 PM EDTOxygen Nkjfvzsjtz90%03/23/2025 1:49 PM EDTInhaled Oxygen Concentration--Zbsycj78.9 kg (99 lb)03/23/2025 1:49 PM EDT Vqcxcv090.6 cm (5' 6 )03/23/2025 1:49 PM EDTBody Mass Index15.9803/23/2025 1:49 PM EDT Plan of Treatment DateTypeDepartmentCare Team (Latest Contact Info)Spqmzhqmgfl84/21/2026 1:00 PM ESTOffice Visit [facility] [address] [place] [address] Tony Crockett, [employer] [address] [place] [address] Health MaintenanceDue DateLast DoneCommentsMedicare Annual Wellness (AWV) 1946Depression Jkyrrjdbr09/31/1958Adult Gpvxmlk1202/09/1968Zoster Vaccines (1 of 2)02/09/1996Fall Risk Melrkcbej48/31/2011Pneumococcal Vaccine: 50+ Years (2 of 2 - PCV)/COVID-19 Vaccine (1 - season) 2025Influenza Vaccine (#1)/09/2020, 03/18/2020, 04/08/2019, Additional history existsMeningococcal VaccineAged Out08/20/2017No longer eligible based on patient's age to complete this topicHIB VaccinesAged OutNo longer eligible based on patient's age to complete this topicHPV VaccinesAged OutNo longer eligible based on patient's age to complete this topicIPV Vaccines Aged OutNo longer eligible based on patient's age to complete this topic Meningococcal B VaccineAged OutNo longer eligible based on patient's age to complete this topicRotavirus VaccinesAged OutNo longer eligible based on patient's age to complete this topic Medical Devices ImplantedTypeAreaManufacturerDevice IdentifierShelf Expiration DateModel / Serial / Suzan,Coronagal,Cliffip,15x9cm - [id number] Implanted:Qty: 1 on 09/17/2023 by [facility]Mesh[facility]/A: AbdomenMEDTRONIC [id number]/31/2028 [id number] / / [id number] Insurance Advance Directives * Full Code (Latest Code Status on File) Date ActivatedDate InactivatedComments09/17/2023 9:27 AM09/18/2023 5:38 PM * Full Code Date ActivatedDate InactivatedComments08/13/2023 6:31 AM08/13/2023 11:28 AM Care Teams Team MemberRelationshipSpecialtyStart DateEnd Date Linda Minaya MD [address] [place] [address] PCP - GeneralInternal Medicine01/06/25
--- OUTSIDE RECORDS SUMMARY | 2025-03-31 13:38 | XMS_ITS | Clinical Summary ---
Author Organization [facility] Address [address] [place], [place] [address] Care Team Providers Care Mail Handler Name Role Phone Kavon Leary MD Unavailable [phone] Kavon Leary Md Primary Care Provider [phone] Allergies Active AllergyReactionsCriticalityNoted DateCommentsNaproxen SodiumUnknown 07/02/2013Sulfa (Sulfonamide Antibiotics)Qvtaddrlbsw01/22/2014 Medications MedicationSigDispense QuantityRefillsLast FilledStart DateEnd DateStatus pravastatin 20 mg tablet Take 20 mg by mouth once daily.Active lisinopril-hydrochlorothiazide 20-25 mg per tablet Take 1 tablet by mouth once daily.Active ALPRAZolam (XANAX) 1 mg tablet Take 1 mg by mouth at bedtime as needed.Active potassium chloride (KLOR-CON 10) 10 mEq tablet Take 20 mEq by mouth once daily. Active AMLODIPINE BESYLATE (AMLODIPINE ORAL) Take 10 mg by mouth once daily.Active Cholecalciferol, Vitamin D3, (D3 DOTS) 2,000 unit tab Take 2,000 Units by mouth once daily.Active MULTIVITAMIN (VITAMIN DAILY ORAL) Take by mouth once daily.Active aspirin, enteric coated (ASPIR-LOW) 81 mg EC tablet Take 1 tablet by mouth once daily.ctive gabapentin (NEURONTIN) 300 mg capsule TAKE 1 CAPSULE BY MOUTH ONCE DAILY X3DAYS, 1 CAPSULE TWICE DAILY X3DAYS THEN 1 CAPSULE 3 TIMES DAILY07/30/2023ctive rasagiline (AZILECT) 1 mg tab Take by mouth.07/20/2023ctive KLOR-CON M20 20 mEq tablet Take 1 tablet by mouth every 12 hours.06/30/2023ctive cyclobenzaprine (FLEXERIL) 10 mg tablet Take 10 mg by mouth.07/30/2023ctive rOPINIRole (REQUIP) 0.25 mg tablet Reduce to 2 tablets, twice/day. After a week, reduce it to 1 tablet in morning and 2 tabs at night.After a week, reduce to only 2 tabs at night. After a week, reduce it to 1 tab at night. Continue on that dose thereafter. 70 tablet ctive polyethylene glycol 3350 (MIRALAX) 17 gram/dose powder Take 17 g by mouth once daily. Dissolve dose in 4 - 8 ounces of liquid and take as directed.Active senna (SENOKOT) 8.6 mg tab Take 8.6 mg by mouth two times a day as needed for constipation.Active pantoprazole DR (PROTONIX) 40 mg tablet Take 40 mg by mouth once daily. Every Svvsfoq1908/13/2023ctive dilTIAZem CD (CARDIZEM CD, CARTIA XT) 180 mg 24 hr capsule Take 180 mg by mouth once daily.Active carbidopa-levodopa CR (SINEMET CR) 25-100 mg per tablet Indications:Parkinson's disease with dyskinesia and fluctuating manifestations (HCC)Take 1 tablet by mouth four times daily. Take at 8am, 12pm, 5pm, and bedtime. 270 tablet 5Active amantadine HCl (SYMMETREL) 100 mg tablet Indications:Parkinson's disease with dyskinesia and fluctuating manifestations (HCC)Take 1 tablet by mouth three times a day. 270 tablet 5Active Active Problems ProblemNoted DateDiagnosed SxasKautsjisffsur02/04/2024bnormal rugdyjk1809/13/2023 Zbcvirkndq05/04/2024arkinson's uselphz9709/13/2023Memory vwqyqsn5709/13/2023 Ureteral /13/2020History of recurrent UTI (urinary tract infection) 03/23/2020UPJ (ureteropelvic junction) umsugzhllnl97/11/2020Renal stone 02/20/20205655Qtbmiufpquufja19/08/4158Agiiofgqxtnt19/22/2014Pre-operative cardiovascular exam, new EKG abnormalities c/w dzkyrdhp08/22/2014 Encounters DateTypeDepartmentCare HeecGrslqwcpoku22/06/2025Refill [facility] [address] [address] Wellington Kirby MD Refill Wtwowiv6101/01/2025 Patient Msg Neurology [address] [place] [address] Provider, Karrie Am I an [place] Candidate for New Therapies in Parkinson's Disease?12/29/2024 9:00 AM EDTOffice Visit [facility] [address] [place] [address] Cherie Montes PA-C Parkinson's disease with dyskinesia and fluctuating manifestations (HCC) (Primary Dx); Slow transit constipation; Gait instability; Fear of pakicjh8112/29/2024Travelfrom Last 3 Months Family History Medical HistoryRelationCommentsStrokeBrother 4HeartBrother 5StrokeMotherCOPD Paternal GrandfatherRelationStatusCommentsBrother 1AliveBrother 2AliveBrother 3 (Age 70)strokeBrother 4Brother 5FatherDeceased (Age 72)pulmonary embolismMotherDeceased (Age 89)strokePaternal GrandfatherSisterAlive Social History Tobacco UseTypesPacks/DayYears UsedDateSmoking Tobacco: FormerCigarettes0.560.8 07/02/1958 - 04/30/2019Smokeless Tobacco: Never Tobacco Cessation:Counseling Given: Not Answered Alcohol UseStandard Drinks/WeekCommentsNo0 (1 standard drink = 0.6 oz pure alcohol)PHQ-2AnswerDate RecordedPHQ-2 vdcwd9234Area Deprivation Index AnswerDate RecordedNational Score (1-100), lower number is lower risk80 09/13/2023State Score (1-10), lower number is lower yilt94909/13/2023ata from: https://www.neighborhoodatlas.medicine.[facility].edu/. Last address used for SUE ST09/13/2023CommentsNoSex and Gender Information ValueDate RecordedSex Assigned at BirthNot on fileLegal CgoGltqjv44/02/2012 10:17 AM ESTGender IdentityNot on fileSexual OrientationNot on fileOccupation IndustryJob Start DateJob End DateHousewifeNot on fileNot on fileNot on file Last Filed Vital Signs Vital SignReadingTime TakenCommentsBlood Qyziefdi929/8207/ 8:37 AM EDT Lhpky726612/29/2024 8:37 AM EHSOdwbthqooin03.4 ??C (95.8 ??F)03/23/2020 2:12 PM EDTRespiratory Fmjg169910/07/2023 9:46 AM EDTOxygen Xwjgvdlvjw35%12/29/2024 8:37 AM EDTInhaled Oxygen Concentration--Beryau37.4 kg (102 lb 4.8 oz)12/29/2024 8:37 AM YNQOpbyby103.6 cm (5' 6 )01/14/2024 1:40 PM EDTBody Mass Index16.51001/14/2024 1:40 PM EDT Plan of Treatment DateTypeDepartmentCare Team (Latest Contact Info)Cmqrzzsjrgk30/04/2025 4:00 PM ESTOffice Visit [facility] [address] [address] [place] [id number] Wellington Kirby MD [address] [place] [address] Health MaintenanceDue DateLast DoneCommentsAnnual PCP Team Chronic Disease Visit 02/09/1964Anxiety Hwucivkbi84/31/1964Depression Yvwdpfptm93/31/1964DTaP,Tdap,Td Vaccine (1 - Tdap)1965Shingrix Vaccine (1 of 2)02/09/1996Medicare Annual Wellness Visit01/09/2011one Density Jplfnilqe61/31/2011Pneumococcal Vaccine: 50+ (2 of 2 - PCV)/RSV Vaccine (1 - 1-dose 75+ series) 2021dvance Directive Tlzwzylwwt66/01/2025ovid-19 Vaccine (1 - 2024- season)2025Influenza Vaccine (#1)2020, 03/18/2020, 04/08/2019, Additional history existsDiabetes Ehixzyggx15/02/2024, 09/18/2023, 09/13/2023, Additional history exists Procedures Procedure NamePriorityDate/TimeAssociated DiagnosisCommentsHEMOGLOBIN H0XKmuvfhg 09/13/2023 11:24 AM EDT Neuropathy Degenerative myopia with other maculopathy, bilateral eye from Last 3 Months or Most Recently Relevant to Health Maintenance Results * HGB A1C (09/13/2023 11:24 AM EDT)ComponentValueRef RangeTest MethodAnalysis TimePerformed AtPathologist SignatureHemoglobin A1C5.24.3 - 5.6 %09/13/2023 3:45 PM [facility] LABComment:[place] Diabetes Association guidelines indicate that patients with HgbA1c in the range 5.7- 6.4% are at increased risk for development of diabetes, and intervention by lifestyle modification may be beneficial. HgbA1c greater or equal to 6.5% is considered diagnostic of diabetes.Estimated Average Rzqrspu063qd/dL09/13/2023 3:45 PM [facility] LABComment:eAG: (Estimated average glucose) is a calculated value from HgbA1c and is housing management representative of the aver age blood glucose level in the last 2-3 month period.Specimen (Source) Anatomical Location / LateralityCollection Method / VolumeCollection Time Received TimeBloodBLOOD SPECIMEN / UnknownVenipuncture / Fxgnpwe8009/13/2023 11:24 AM EDT09/13/2023 11:24 AM EDT Narrative Authorizing ProviderResult TypeResult StatusWellington Kirby MDLABORATORYFinal Result Performing OrganizationAddressCity/State/ZIP CodePhone Number [facility] [address] [address], from Last 3 Months or Most Recently Relevant to Health Maintenance Insurance Care Teams Team MemberRelationshipSpecialtyStart DateEnd Date Kavon Leary Md PCP - GeneralFamily Qhjbiqpz25/13/20 Kavon Leary MD PhysicianFamily Medicine02/20/20
--- OUTSIDE RECORDS SUMMARY | 2025-03-31 13:39 | XMS_ITS | Patient Health Record ---
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 Name Role Phone None, Unknown or Primary Care Provider Unavailab rubén Austin Leary Armando [phone] Allergies Allergen (clinical drug ingredient) Drug/Non Drug Allergy documented on EMR Reaction Allergy Type Onset Date Status Substance with sulfonamide s tructure and antibacterial mechanism of action (substance) Sulfa Antibiotics anaphylaxis Drug Allergy ActiveciprofloxacinCiprofloxacinUnknownDrug AllergyActivetrazodoneTrazodone Shaking/ TremorsDrug AllergyActive Results Component Value Reference Range Notes BNP Reviewed date:07/22/2024 02:35:45 PM Interpretation: Performing Lab: Notes/Report: [facility] , NT Pro B Type Natriuretic Pept 57.0 <=1800.0 p g/mL Performing Lab:see noteML - [facility] LBCBC AUTO DIFF Reviewed date:07/22/2024 12:53:06 PM Interpretation: Performing Lab: Notes/Report: [facility] ,White Blood Count7.24.0-11.0 10 3/uLRed Blood Count4.454.20-5.40 10 6/uL Vfbmjmanuc47.912.0-16.0 g/sYFrsepxqhrw35.836.0-48.0 %Mean Corpuscular Ziaxsb64.2 81.0-99.0 fLMean Corpuscular Bzcrbqvsea30.226.7-34.0 pgMean Corpuscular HGB Conc 32.529.9-35.2 g/dLRed Cell Distribution Width15.111.0-15.0 %Platelet Aneei633 150-450 10 3/uLMean Platelet Jwldgx40.69.5-13.5 fLPerforming Lab:see noteML - [facility] 14(COMP METB) Reviewed date:07/22/2024 02:35:45 PM Interpretation: Performing Lab: Notes/Report: [facility] ,Onmqpe075461-780 mmol/LPotassium4.23.5-5.1 mmol/HNwyrjbed85752-663 mmol/LCarbon Wpttubm58.021.0-32.0 mmol/LAnion Gap13.0Jgijnbt3257-515 mg/dLBlood Urea Nitrogen 30.07.0-18.0 mg/dLCreatinine1.230.55-1.02 mg/dLEstimated GFR ( Pveoxul10 >=60 mL/min/1.73m 2Estimated GFR (Non- Ame42>=60 mL/min/1.73m 2BUN Creatinine Ratio24.9Rfhcekc28.48.5-10.1 mg/dLBilirubin Total0.30.2-1.0 mg/dL Aspartate Amino Gsjjhmzifls0882-76 U/LAlanine Aumtjnchbdwttyxb2739-26 U/L Alkaline Dkkkhrasjrh03327-352 U/LTotal Protein6.86.4-8.2 g/dLAlbumin Level3.8 3.4-5.0 g/dLGlobulin3.0Albumin Globulin Ratio1.3Performing Lab:see noteML - [facility] LBLACTATE or LACTIC ACID Reviewed date:04/09/2024 06:36:59 PM Interpretation: Performing Lab: Notes/Report: [facility] ,Lactate/Lactic Acid1.40.4-2.0 mmol/LPerforming Lab:see noteML - [facility] 14(COMP METB) Reviewed date:04/09/2024 06:36:59 PM Interpretation: Performing Lab: Notes/Report: [facility] ,Opaxgj067060-072 mmol/LPotassium3.73.5-5.1 mmol/SRxsqmweo57312-340 mmol/LCarbon Nbxxqgf20.121.0-32.0 mmol/LAnion Gap15.9Czdsjsc07502-462 mg/dLBlood Urea Tdspdfrf27.07.0-18.0 mg/dLCreatinine1.370.55-1.02 mg/dLEstimated GFR ( Nqoprbx08>=60 mL/min/1.73m 2Estimated GFR (Non- Ame37>=60 mL/min/1.73m 2 BUN Creatinine Ratio16.6Otaznro78.18.5-10.1 mg/dLBilirubin Total0.70.2-1.0 mg/dL Aspartate Amino Msqbsyqbmff4965-83 U/LAlanine Mcpmwaqxwpjsgxqo5303-84 U/L Alkaline Frsiapclkbk55506-177 U/LTotal Protein6.96.4-8.2 g/dLAlbumin Level3.9 3.4-5.0 g/dLGlobulin3.0Albumin Globulin Ratio1.3Performing Lab:see note - [facility] LBTroponin I High Sensitivity Reviewed date:04/09/2024 06:36:59 PM Interpretation: Performing Lab: Notes/Report: [facility] ,Troponin I High Lefyrdtmjve78.04.0-51.3 pg/mL CUT-OFF POINTS HAVE BEEN ESTABLISHED BASED ON THE FOURTH UNIVERSAL DEFINITION OF MYOCARDIAL INFARCTION. THE UPPER REFERENCE LIMIT (URL) OF TROPONIN, DEFINED THE 99TH PERCENTILE OF cTnI DISTRIBUTION IN A REFERENCE POPULATION, HAS BEEN CONFIRMED THE DECISION THRESHOLD FOR MO DIAGNOSIS. 99TH PERCENTILE = 51.4 PG/ML NOTE: HIGH-SENSITIVITY TROPONIN ASSAY IS NOT INTENDED TO BE USED IN ISOLATION BUT SHOULD BE INTERPRETED IN CONJUNCTION WITH OTHER DIAGNOSTIC AND CLINICAL INFORMATION. Performing Lab:see noteML - [facility] LBUrine Culture, Routine Reviewed date:04/13/2024 03:00:30 PM Interpretation: Performing Lab: Notes/Report: [facility] ,Urine Culture, RoutineSee Below For Report Urine Culture, Routine O:PSAV Isolated Organism: 1.1 Antibiotic Interpretation ROSALIND Status Urine Culture, RoutineSpecimen has been received and testing has been initiated. Urine Culture, Routine O:PSAV Isolated Organism: 1.1 Antibiotic Interpretation ROSALIND Status Urine Culture, RoutineOrganism: Pseudomonas aeruginosa.. : Urine Culture, Routine O:PSAV Isolated Organism: 1.1 Antibiotic Interpretation ROSALIND Status Urine Culture, Routine*ABNORMAL* Urine Culture, Routine O:PSAV Isolated Organism: 1.1 Antibiotic Interpretation ROSALIND Status Urine Culture, Dwvdyis67,000-100,000 colony forming units per mL Urine Culture, Routine O:PSAV Isolated Organism: 1.1 Antibiotic Interpretation ROSALIND Status Urine Culture, RoutinePseudomonas aeruginosa.. Urine Culture, Routine O:PSAV Isolated Organism: 1.1 Antibiotic Interpretation ROSALIND Status Urine Culture, RoutineSee Below For Report Urine Culture, Routine O:PSAV Isolated Organism: 1.1 Antibiotic Interpretation ROSALIND Status Urine Culture, RoutinePerformed at: - [facility] Urine Culture, Routine O:PSAV Isolated Organism: 1.1 Antibiotic Interpretation ROSALIND Status Urine Culture, [address] [place], [place] [id number] Urine Culture, Routine O:PSAV Isolated Organism: 1.1 Antibiotic Interpretation ROSALIND Status Urine Culture, RoutineLab Director: Dwaine Vazquez PhD, Phone: [phone] Urine Culture, Routine O:PSAV Isolated Organism: 1.1 Antibiotic Interpretation ROSALIND Status Urine Culture, RoutineSee Below For Report Urine Culture, Routine O:PSAV Isolated Organism: 1.1 Antibiotic Interpretation ROSALIND Status Urine Culture, RoutineAmikacin S F Urine Culture, Routine O:PSAV Isolated Organism: 1.1 Antibiotic Interpretation ROSALIND Status Urine Culture, RoutineCefepime S F Urine Culture, Routine O:PSAV Isolated Organism: 1.1 Antibiotic Interpretation ROSALIND Status Urine Culture, RoutineCeftazidime S F Urine Culture, Routine O:PSAV Isolated Organism: 1.1 Antibiotic Interpretation ROSALIND Status Urine Culture, RoutineCiprofloxacin S F Urine Culture, Routine O:PSAV Isolated Organism: 1.1 Antibiotic Interpretation ROSALIND Status Urine Culture, RoutineGentamicin S F Urine Culture, Routine O:PSAV Isolated Organism: 1.1 Antibiotic Interpretation ROSALIND Status Urine Culture, RoutineImipenem S F Urine Culture, Routine O:PSAV Isolated Organism: 1.1 Antibiotic Interpretation ROSALIND Status Urine Culture, RoutineLevofloxacin R F Urine Culture, Routine O:PSAV Isolated Organism: 1.1 Antibiotic Interpretation ROSALIND Status Urine Culture, RoutineMeropenem S F Urine Culture, Routine O:PSAV Isolated Organism: 1.1 Antibiotic Interpretation ROSALIND Status Urine Culture, RoutinePiperacillin S F Urine Culture, Routine O:PSAV Isolated Organism: 1.1 Antibiotic Interpretation ROSALIND Status Urine Culture, RoutineTicarcillin S F Urine Culture, Routine O:PSAV Isolated Organism: 1.1 Antibiotic Interpretation ROSALIND Status Urine Culture, RoutineTobramycin R F Urine Culture, Routine O:PSAV Isolated Organism: 1.1 Antibiotic Interpretation ROSALIND Status Performing Lab:see note LC - [facility] LB SEE REPORT - Produce Department Supervisor Id 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 not found for OBX-specific film reproducer legend XR hip LT 2V w/ pelvis Reviewed date:04/09/2024 06:36:59 PM Interpretation: Performing Lab: Notes/Report: Source Facility: [place] [address] XRay Report Signed Patient: JUDITH LAND MR#: [id number] : 1945 Acct:[id number] Age/Sex: 79 / F ADM Date: 04/09/24 Loc: ER Attending Dr: Ordering Physician: David Marsh Date of Service: 04/09/24 Procedure(s): XR hip LT 2V w/ pelvis Accession Number(s): [id number] cc: Rodrick Leary M.D.; David Marsh [place] [id number] Patient Name: JUDITH LAND MRN: [id number] date: 1945 Sex: F Assigned Patient Location: ER Current Patient Location: ER Accession/Order Number: [id number] Exam Date: 04/09/2024 09:01 Report Date: 04/09/2024 09:22 At the request of: DAVID MARSH Procedure: XR hip LT 2V w/ pelvis PROCEDURE: XR hip LT 2V w/ pelvis HISTORY: Fall , weakness COMPARISON: None. FINDINGS: BONES:Moderate degenerative change of the hip joints bilaterally. No fracture or dislocation. Stable sclerotic foci bone islands within left femoral head and neck. Degenerative changes of the lumbar spine. SOFT TISSUES:No visible soft tissue swelling. EFFUSION:None visible. OTHER: Negative. XR/XR hip LT 2V w/ pelvis IMPRESSION: 1. No appreciable acute abnormality. 2. Degenerative changes of the hip joints and spine. Electronically authenticated by: JAMARI EVANS Date: 04/09/2024 09:22 Dictated By: Jamari Evans M.D. Signed By: 04/09/24 0925 DD/ 1 TD/TT: Sander Wooden Pencils:ECG 12 lead Reviewed date:04/10/2024 08:43:21 PM Interpretation: Performing Lab: Notes/Report: Source Facility: [facility]-[address] [place] [address] [place] [address] Electrocardiograph Report Signed Patient: JUDITH LAND MR#: [id number] : 1945 Acct:[id number] Age/Sex: 79 / F ADM Date: 04/09/24 Loc: ER Attending Dr: Ordering Physician: David Marsh Date of Service: 04/09/24 Procedure(s): ECG 12 lead Accession Number(s): [id number] cc: [facility] Test Date: 2024-04-09 Pat Name: JUDITH LAND Department: Room: - 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 Signed By: 04/09/24 2324 DD/ TD/TT: Sander Wooden Pencils:LIPID PROFILE Reviewed date:05/01/2024 03:00:18 PM Interpretation: Performing Lab: Notes/Report: [facility] ,Huczieuoabxod12<=150 mg/yMEurboqntshj414<=200 mg/dLHDL Dsowtwnqjay2399-51 mg/dL > or =60 mg/dl - LOW CARDIOVASCULAR RISK <40 mg/dl - HIGH CARDIOVASCULAR RISK LDL Cholesterol Lqvqitfkwe37.0 <100 mg/dl OPTIMAL 100-129 mg/dl NEAR OR ABOVE OPTIMAL 130-159 mg/dl BORDERLINE HIGH 160-189 mg/dl HIGH >190 mg/dl VERY HIGH VLDL ZNXVHYGPJFL13.8Chol HDL Ratio2.1 3.3 - 4.4 LOW RISK 4.4 - 7.1 AVERAGE RISK 7.1 - 11.0 MODERATE RISK >11.0 HIGH RISK Performing Lab:see noteML - [facility] LBFREE T4 Reviewed date:07/22/2024 02:35:45 PM Interpretation: Performing Lab: Notes/Report: [facility] ,Free T40.920.76-1.46 ng/dLPerforming Lab:see noteML - [facility] LB TSH Reviewed date:07/22/2024 02:35:45 PM Interpretation: Performing Lab: Notes/Report: [facility] ,Thyroid Stimulating Hormone1.3000.358-3.740 uIU/mLPerforming Lab:see noteML - [facility] LBManual Differential Reviewed date:07/22/2024 12:53:06 PM Interpretation: Performing Lab: Notes/Report: [facility] ,Segmented Neutrophils % Iyagnb73.043.0-75.0Band Neutrophils %1.00-5 % Lymphocytes Percent Vdombo26.020.5-60.0 %Monocytes Percent Manual0.01.7-12.0 % Eosinophils Percent Manual6.00.9-7.0 %Basophils Percent Manual3.00.2-2.0 % Segmented Neut Absolute Manual3.161.4-6.5 10 3/uLBand Neutrophils Absolute0.1 0.0-0.3 10 3/uLLymphocytes Absolute Manual2.591.20-3.80 10 3/uLMonocytes Absolute Manual0.000.30-0.80 10 3/uLEosinophils Absolute Manual0.430.00-0.70 10 3/uLBasophils Abs Manual0.210.00-0.10 10 3/uLAnisocytosis1+Performing Lab:see noteML - [facility] LBTroponin I High Sensitivity Reviewed date:07/22/2024 02:35:45 PM Interpretation: Performing Lab: Notes/Report: [facility] ,Troponin I High Zinmjtmseap61.84.0-51.3 pg/mL CUT-OFF POINTS HAVE BEEN ESTABLISHED BASED ON THE FOURTH UNIVERSAL DEFINITION OF MYOCARDIAL INFARCTION. THE UPPER REFERENCE LIMIT (URL) OF TROPONIN, DEFINED THE 99TH PERCENTILE OF cTnI DISTRIBUTION IN A REFERENCE POPULATION, HAS BEEN CONFIRMED THE DECISION THRESHOLD FOR MO DIAGNOSIS. 99TH PERCENTILE = 51.4 PG/ML NOTE: HIGH-SENSITIVITY TROPONIN ASSAY IS NOT INTENDED TO BE USED IN ISOLATION BUT SHOULD BE INTERPRETED IN CONJUNCTION WITH OTHER DIAGNOSTIC AND CLINICAL INFORMATION. Performing Lab:see noteML - [facility] LBCBC AUTO DIFF Reviewed date:08/06/2024 08:35:07 PM Interpretation: Performing Lab: Notes/Report: [facility] ,White Blood Count8.94.0-11.0 10 3/uLRed Blood Count4.494.20-5.40 10 6/uL Wrudncnufg06.112.0-16.0 g/wZDvjfwynaho66.436.0-48.0 %Mean Corpuscular Sqqygr31.4 81.0-99.0 fLMean Corpuscular Vbqamrooat69.426.7-34.0 pgMean Corpuscular HGB Conc 33.329.9-35.2 g/dLRed Cell Distribution Width15.211.0-15.0 %Platelet Etpqq288 150-450 10 3/uLMean Platelet Pysrcu64.59.5-13.5 fLPerforming Lab:see noteML - [facility] LBPROF 14(COMP METB) Reviewed date:08/06/2024 08:35:07 PM Interpretation: Performing Lab: Notes/Report: [facility] ,Egkfdo597794-037 mmol/LPotassium4.23.5-5.1 mmol/JYkeoepga54554-916 mmol/LCarbon Bmpfozg22.221.0-32.0 mmol/LAnion Gap11.8Ehyqeir8529-699 mg/dLBlood Urea Nitrogen 32.07.0-18.0 mg/dLCreatinine1.330.55-1.02 mg/dLEstimated GFR ( Ypjnisq25 >=60 mL/min/1.73m 2Estimated GFR (Non- Ame39>=60 mL/min/1.73m 2BUN Creatinine Ratio24.9Rykeulz21.48.5-10.1 mg/dLBilirubin Total0.40.2-1.0 mg/dL Aspartate Amino Sknzbxvwpaz9353-70 U/LAlanine Kaqcmmaidurxfqdq3212-42 U/L Alkaline Idwiditdhra75902-758 U/LTotal Protein7.26.4-8.2 g/dLAlbumin Level4.0 3.4-5.0 g/dLGlobulin3.2Albumin Globulin Ratio1.3Performing Lab:see noteML - [facility] LBUA (CLEAN or CATCH) HIGH SCHOOL TEACHER or MICRO IF IND. Reviewed date:08/06/2024 08:35:07 PM Interpretation: Performing Lab: Notes/Report: [facility] ,Color UrineLT. YELLOWYELLOWClarity UrineCLEARCLEARSpecific [place] Urine1.020 1.005-1.025pH Urine6.55.0-9.0Protein UrineNEGATIVENEG/TRACE mg/dLGlucose Urine UANEGATIVENEGATIVE mg/dLBilirubin UrineNEGATIVENEGATIVEKetones UrineNEGATIVE NEGATIVE mg/dLBlood UrineTRACE-INEGATIVENitrite UrineNEGATIVENEGATIVE Urobilinogen Urine0.20.2-1.0 EU/dLLeukocyte Esterase UrineNEGATIVENEGATIVEUrine Microscopic IndicatedYESPerforming Lab:see noteML - [facility] LB Manual Differential Reviewed date:08/06/2024 08:35:07 PM Interpretation: Performing Lab: Notes/Report: [facility] ,Segmented Neutrophils % Lzzfki35.043.0-75.0Lymphocytes Percent Pogion44.020.5- 60.0 %Monocytes Percent Urhqjs70.01.7-12.0 %Eosinophils Percent Manual1.00.9-7.0 %Basophils Percent Manual3.00.2-2.0 %Segmented Neut Absolute Manual4.271.4-6.5 10 3/uLLymphocytes Absolute Manual2.491.20-3.80 10 3/uLMonocytes Absolute Manual 1.780.30-0.80 10 3/uLEosinophils Absolute Manual0.080.00-0.70 10 3/uLBasophils Abs Manual0.260.00-0.10 10 3/uLPerforming Lab:see noteML - [facility] LBTroponin I High Sensitivity Reviewed date:08/06/2024 08:35:07 PM Interpretation: Performing Lab: Notes/Report: [facility] ,Troponin I High Kblperekzmc19.84.0-51.3 pg/mL CUT-OFF POINTS HAVE BEEN ESTABLISHED BASED ON THE FOURTH UNIVERSAL DEFINITION OF MYOCARDIAL INFARCTION. THE UPPER REFERENCE LIMIT (URL) OF TROPONIN, DEFINED THE 99TH PERCENTILE OF cTnI DISTRIBUTION IN A REFERENCE POPULATION, HAS BEEN CONFIRMED THE DECISION THRESHOLD FOR MO DIAGNOSIS. 99TH PERCENTILE = 51.4 PG/ML NOTE: HIGH-SENSITIVITY TROPONIN ASSAY IS NOT INTENDED TO BE USED IN ISOLATION BUT SHOULD BE INTERPRETED IN CONJUNCTION WITH OTHER DIAGNOSTIC AND CLINICAL INFORMATION. Performing Lab:see noteML - [facility] KOLRQK-VaI-1 Ag* Reviewed date:08/06/2024 08:35:07 PM Interpretation: Performing Lab: Notes/Report: [facility] ,SARS-CoV-2 AgNEGATIVENEGATIVE This test has not been FDA cleared or approved, but has been authorized by the FDA under an Emergency Use Authorization (EUA) for use by authorized laboratories certified under CLIA that meet the requirements to perform moderate or high complexity testing. This test has been authorized only for the detection of proteins from SARS-CoV-2, not for any other viruses or pathogens. The emergency use of this test is authorized for the duration of the declaration that circumstances exist justifying the authorization of emergency use of in vitro diagnostic tests for detection and/or diagnosis of Covid-19 under section 564(b)(1) of the Act, 21 U.S.C. 360bbb-3(b)(1), unless the declaration is terminated or authorization is revoked sooner. Performing Lab:see noteML - [facility] LBUrine Culture - [facility] Reviewed date:08/10/2024 12:57:24 PM Interpretation: Performing Lab: Notes/Report: [facility] ,Urine Culture - [facility]MCSee Below For Report Urine Culture - [facility] 15,000 colonies/ml mixed Urine Culture - [facility]MCbacterial skin contaminants Urine Culture - [facility] 15,000 colonies/ml mixed Urine Culture - [facility]2 Days Urine Culture - [facility] 15,000 colonies/ml mixed Urine Culture - [facility] Urine Culture - [facility] 15,000 colonies/ml mixed Urine [facility] Urine [facility] - [facility] 15,000 colonies/ml mixed Urine Culture - [id number] [place] [address] Urine Culture - [facility] 15,000 colonies/ml mixed Performing Lab:see noteML - [facility] LBCBC AUTO DIFF Reviewed date:08/13/2024 09:36:29 PM Interpretation: Performing Lab: Notes/Report: [facility] ,White Blood Count11.64.0-11.0 10 3/uLRed Blood Count4.034.20-5.40 10 6/uL Lbfwhwpczg23.812.0-16.0 g/tHRifpsxogfo78.036.0-48.0 %Mean Corpuscular Nrmnec39.8 81.0-99.0 fLMean Corpuscular Aiwxsdstjx59.826.7-34.0 pgMean Corpuscular HGB Conc 32.829.9-35.2 g/dLRed Cell Distribution Width15.611.0-15.0 %Platelet Edfqn444 150-450 10 3/uLMean Platelet Slzirh67.29.5-13.5 fLNeutrophils Percent Auto69.8 43.0-75.0 %Lymphocytes Percent Auto15.520.5-60.0 %Monocytes Percent Auto13.01.7- 12.0 %Eosinophils Percent Auto1.00.9-7.0 %Basophils Percent Auto0.50.2-2.0 % Immature Granulocytes Pct Auto0.20.0-0.5 %Neutrophils Absolute Auto8.11.4-6.5 10 3/uLLymphocytes Absolute Auto1.81.2-3.8 10 3/uLMonocytes Absolute Auto1.50.3-0.8 10 3/uLEosinophils Absolute Auto0.10.0-0.7 10 3/uLBasophils Absolute Auto0.10.0- 0.1 10 3/uLImmature Granulocytes Abs Auto0.020.00-0.03 10 3/uLPerforming Lab:see noteML - [facility] LBINFLUENZA A AND B AG Reviewed date:08/13/2024 09:36:29 PM Interpretation: Performing Lab: Notes/Report: [facility] ,Influenza Virus A AntigenNegative Negative for Flu A protein antigen. Infection due to Flu A cannot be ruled out. Flu A antigen in the sample may be below the detection limit of the test. Influenza Virus B AntigenNegative Negative for Flu B protein antigen. Infection due to Flu B cannot be ruled out. Flu B antigen in the sample may be below the detection limit of the test. Performing Lab:see note - [facility] LBPROF 14(COMP METB) Reviewed date:08/13/2024 09:36:29 PM Interpretation: Performing Lab: Notes/Report: [facility] ,Dosipi824374-422 mmol/LPotassium3.83.5-5.1 mmol/YDaigrqvz16930-753 mmol/LCarbon Lzgxgri42.921.0-32.0 mmol/LAnion Gap13.9Vorxtsc1167-410 mg/dLBlood Urea Nitrogen 20.07.0-18.0 mg/dLCreatinine1.280.55-1.02 mg/dLEstimated GFR ( Bgjjrjq46 >=60 mL/min/1.73m 2Estimated GFR (Non- Ame40>=60 mL/min/1.73m 2BUN Creatinine Ratio15.0Notonpw16.28.5-10.1 mg/dLBilirubin Total0.50.2-1.0 mg/dL Aspartate Amino Luwzwqftwod2901-01 U/LAlanine Rgqkfgozrilgeouq788-13 U/LAlkaline Uqdttrrvhby74583-047 U/LTotal Protein6.96.4-8.2 g/dLAlbumin Level3.83.4-5.0 g/dL Globulin3.1Albumin Globulin Ratio1.2Performing Lab:see note - [facility] LBRSV Reviewed date:08/13/2024 09:36:29 PM Interpretation: Performing Lab: Notes/Report: [facility] ,Respiratory Syncytial VirusNot DetectedNOT DETECTEPerforming Lab:see note - [facility] LBUA RANDOM W or MICROSCOPIC Reviewed date:08/13/2024 09:36:29 PM Interpretation: Performing Lab: Notes/Report: [facility] ,Color UrineLT. YELLOWYELLOWClarity UrineCLEARCLEARSpecific [place] Urine1.015 1.005-1.025pH Urine6.05.0-9.0Protein UrineNEGATIVENEG/TRACE mg/dLGlucose Urine UANEGATIVENEGATIVE mg/dLBilirubin UrineNEGATIVENEGATIVEKetones UrineNEGATIVE NEGATIVE mg/dLBlood UrineNEGATIVENEGATIVENitrite UrineNEGATIVENEGATIVE Urobilinogen Urine0.20.2-1.0 EU/dLLeukocyte Esterase UrineSMALLNEGATIVEWBC Urine 5-10NONE SEEN #/HPFRBC Urine0-20-2 #/HPFBacteria UrineNONE SEENNONE SEEN #/HPF Mucus UrineNONE SEENNONE SEENSquamous Epithelial Cell UrineRARENONE/RARE #/LPF Crystals Seen?SeenNone Seen #/HPFCalcium Oxalate Crystals UrineRARECast Seen? NONE SEENNONE SEEN #/LPFUrine Culture IndicatedALREADY ORDEREDPerforming Lab:see noteML - [facility] LBTroponin I High Sensitivity Reviewed date:08/13/2024 09:36:29 PM Interpretation: Performing Lab: Notes/Report: [facility] ,Troponin I High Dqoflgacszf70.44.0-51.3 pg/mL CUT-OFF POINTS HAVE BEEN ESTABLISHED BASED ON THE FOURTH UNIVERSAL DEFINITION OF MYOCARDIAL INFARCTION. THE UPPER REFERENCE LIMIT (URL) OF TROPONIN, DEFINED THE 99TH PERCENTILE OF cTnI DISTRIBUTION IN A REFERENCE POPULATION, HAS BEEN CONFIRMED THE DECISION THRESHOLD FOR MO DIAGNOSIS. 99TH PERCENTILE = 51.4 PG/ML NOTE: HIGH-SENSITIVITY TROPONIN ASSAY IS NOT INTENDED TO BE USED IN ISOLATION BUT SHOULD BE INTERPRETED IN CONJUNCTION WITH OTHER DIAGNOSTIC AND CLINICAL INFORMATION. Performing Lab:see noteML - [facility] ZYNIRV-BdQ-0 Ag* Reviewed date:08/13/2024 09:36:29 PM Interpretation: Performing Lab: Notes/Report: [facility] ,SARS-CoV-2 AgNEGATIVENEGATIVE This test has not been FDA cleared or approved, but has been authorized by the FDA under an Emergency Use Authorization (EUA) for use by authorized laboratories certified under CLIA that meet the requirements to perform moderate or high complexity testing. This test has been authorized only for the detection of proteins from SARS-CoV-2, not for any other viruses or pathogens. The emergency use of this test is authorized for the duration of the declaration that circumstances exist justifying the authorization of emergency use of in vitro diagnostic tests for detection and/or diagnosis of Covid-19 under section 564(b)(1) of the Act, 21 U.S.C. 360bbb-3(b)(1), unless the declaration is terminated or authorization is revoked sooner. Performing Lab:see noteML - [facility] LBECG 12 lead Reviewed date:08/14/2024 09:14:57 PM Interpretation: Performing Lab: Notes/Report: Source Facility: [facility]-[address] [place] [address] [place] [address] Electrocardiograph Report Signed Patient: JUDITH LAND MR#: [id number] : 1945 Acct:[id number] Age/Sex: 79 / F ADM Date: 08/13/24 Loc: MS 214-[address]: Rodrick Leary M.D. Ordering Physician: Meghan Ramachandran D.O. 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 Measurements Intervals Starlight Rate: 71 P: 76 TN: 168 QRS: -17 QRSD: 94 T: 66 QT: 372 QTc: 394 Interpretive Statements 1100 Sinus rhythm 3434 Septal myocardial infarction, age undetermined 9150 abnormal ECG Compared to ECG 04/09/2024 08:19:39 No significant changes Electronically Signed On 08-14-2024 6:28:12 EST by ANDREW MARISCAL M.D. Dictated By: ANDREW MARISCAL Signed By: 08/14/24 0628 DD/ 1215 TD/TT: Sander Wooden Pencils:BNP Reviewed date:08/14/2024 09:14:57 PM Interpretation: Performing Lab: Notes/Report: [facility] ,NT Pro B Type Natriuretic Kxxq280.0<=1800.0 pg/mLPerforming Lab:see noteML - [facility] LBCBC AUTO DIFF Reviewed date:08/14/2024 09:14:57 PM Interpretation: Performing Lab: Notes/Report: [facility] ,White Blood Count8.94.0-11.0 10 3/uLRed Blood Count3.884.20-5.40 10 6/uL Ocikdjmvyd70.012.0-16.0 g/fLGfktvfzndc12.836.0-48.0 %Mean Corpuscular Yehpuc03.8 81.0-99.0 fLMean Corpuscular Jxzagjtvxs04.926.7-34.0 pgMean Corpuscular HGB Conc 32.629.9-35.2 g/dLRed Cell Distribution Width15.411.0-15.0 %Platelet Ekjdn223 150-450 10 3/uLMean Platelet Jicfwv55.39.5-13.5 fLNeutrophils Percent Auto69.5 43.0-75.0 %Lymphocytes Percent Auto17.820.5-60.0 %Monocytes Percent Auto12.21.7- 12.0 %Eosinophils Percent Auto0.00.9-7.0 %Basophils Percent Auto0.30.2-2.0 % Immature Granulocytes Pct Auto0.20.0-0.5 %Neutrophils Absolute Auto6.21.4-6.5 10 3/uLLymphocytes Absolute Auto1.61.2-3.8 10 3/uLMonocytes Absolute Auto1.10.3-0.8 10 3/uLEosinophils Absolute Auto0.00.0-0.7 10 3/uLBasophils Absolute Auto0.00.0- 0.1 10 3/uLImmature Granulocytes Abs Auto0.020.00-0.03 10 3/uLPerforming Lab:see noteML - [facility] LBPROF CHEM 8 (BAS METB) Reviewed date:08/14/2024 09:14:57 PM Interpretation: Performing Lab: Notes/Report: [facility] ,Soumfd664305-371 mmol/LPotassium4.13.5-5.1 mmol/BNtsmnizl69615-275 mmol/LCarbon Mgnaklq87.421.0-32.0 mmol/LAnion Gap9.9Tfhrbxy54321-100 mg/dLBlood Urea Nitrogen 23.07.0-18.0 mg/dLCreatinine1.140.55-1.02 mg/dLEstimated GFR ( Zzhoyyp93 >=60 mL/min/1.73m 2Estimated GFR (Non- Ame46>=60 mL/min/1.73m 2BUN Creatinine Ratio20.0Dhbnwjb61.78.5-10.1 mg/dLPerforming Lab:see noteML - [facility] LBTroponin I High Sensitivity Reviewed date:10/23/2024 02:24:58 PM Interpretation: Performing Lab: Notes/Report: [facility] ,Troponin I High Emmjweuekxo55.94.0-51.3 pg/mL CUT-OFF POINTS HAVE BEEN ESTABLISHED BASED ON THE FOURTH UNIVERSAL DEFINITION OF MYOCARDIAL INFARCTION. THE UPPER REFERENCE LIMIT (URL) OF TROPONIN, DEFINED THE 99TH PERCENTILE OF cTnI DISTRIBUTION IN A REFERENCE POPULATION, HAS BEEN CONFIRMED THE DECISION THRESHOLD FOR [place] DIAGNOSIS. 99TH PERCENTILE = 51.4 PG/ML NOTE: HIGH-SENSITIVITY TROPONIN ASSAY IS NOT INTENDED TO BE USED IN ISOLATION BUT SHOULD BE INTERPRETED IN CONJUNCTION WITH OTHER DIAGNOSTIC AND CLINICAL INFORMATION. 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 Measurements Intervals Starlight Rate: 91 P: -[id number] TN: 135 QRS: 10 QRSD: 90 T: 60 QT: 374 QTc: 422 Interpretive Statements NORMAL SINUS RHYTHM 3434 Septal myocardial infarction, age undetermined 9150 abnormal ECG Compared to ECG 08/13/2024 12:15:56 No significant changes Electronically Signed On 10-22-2024 23:09:01 EDT by ANDREW MARISCAL M.D. Dictated By: ANDREW MARISCAL Signed By: 10/22/242308 DD/ 46 TD/TT: Sander Wooden Pencils:AMMONIA Reviewed date:10/26/2024 03:26:04 PM Interpretation: Performing Lab: Notes/Report: [facility] ,Ammonia<1011-32 umol/LPerforming Lab:see noteML - [facility] LBBLOOD GASES BTY Reviewed date:10/26/2024 03:26:04 PM Interpretation: Performing Lab: Notes/Report: [facility] ,pH ABG7.3847.350-7.450ABG DWB001.335.0-45.0 mmHgPO2 ABG75.180.0-100.0 mmHgHCO3 ABG23.422.0-26.0 mmol/LBase Excess ABG-1.6-2.0-2.0 mmol/LOxygen Saturation ABG 96.0Allen TestPOSITIVEPOSITIVEO2 ModeNasal cannulaLiters per Aclvok4Jqckdrif SiteRRPerforming Lab:see noteML - [facility] LBCBC AUTO DIFF Reviewed date:10/23/2024 02:24:58 PM Interpretation: Performing Lab: Notes/Report: [facility] ,White Blood Count8.24.0-11.0 10 3/uLRed Blood Count3.834.20-5.40 10 6/uL Asajbdcwha12.912.0-16.0 g/lQDcxhlaavbm39.136.0-48.0 %Mean Corpuscular Icirxc90.9 81.0-99.0 fLMean Corpuscular Kepzksxabi68.126.7-34.0 pgMean Corpuscular HGB Conc 32.129.9-35.2 g/dLRed Cell Distribution Width15.811.0-15.0 %Platelet Oqzgw581 150-450 10 3/uLMean Platelet Oscibz64.09.5-13.5 fLNeutrophils Percent Auto61.2 43.0-75.0 %Lymphocytes Percent Auto21.320.5-60.0 %Monocytes Percent Auto14.11.7- 12.0 %Eosinophils Percent Auto2.30.9-7.0 %Basophils Percent Auto0.90.2-2.0 % Immature Granulocytes Pct Auto0.20.0-0.5 %Neutrophils Absolute Auto5.01.4-6.5 10 3/uLLymphocytes Absolute Auto1.81.2-3.8 10 3/uLMonocytes Absolute Auto1.20.3-0.8 10 3/uLEosinophils Absolute Auto0.20.0-0.7 10 3/uLBasophils Absolute Auto0.10.0- 0.1 10 3/uLImmature Granulocytes Abs Auto0.020.00-0.03 10 3/uLPerforming Lab:see noteML - [facility] LBCRP Reviewed date:10/26/2024 03:26:04 PM Interpretation: Performing Lab: Notes/Report: [facility] ,C Reactive Protein0.59<=0.50 mg/dLPerforming Lab:see noteML - [facility] LBLACTATE or LACTIC ACID Reviewed date:10/26/2024 03:26:04 PM Interpretation: Performing Lab: Notes/Report: [facility] ,Lactate/Lactic Acid1.70.4-2.0 mmol/LPerforming Lab:see noteML - [facility] LBLIPASE Reviewed date:10/26/2024 03:26:04 PM Interpretation: Performing Lab: Notes/Report: [facility] ,Uvkaul83.016.0-77.0 U/LPerforming Lab:see noteML - [facility] LB MAGNESIUM Reviewed date:10/23/2024 02:24:58 PM Interpretation: Performing Lab: Notes/Report: [facility] ,Magnesium2.01.8-2.4 mg/dLPerforming Lab:see noteML - [facility] LB PROF 14(COMP METB) Reviewed date:10/26/2024 03:26:04 PM Interpretation: Performing Lab: Notes/Report: [facility] ,Wqgttr752282-144 mmol/LPotassium3.43.5-5.1 mmol/ORyetbpvh75809-808 mmol/LCarbon Mstrnzk00.221.0-32.0 mmol/LAnion Gap14.8Mqkblhp2645-355 mg/dLBlood Urea Nitrogen 18.07.0-18.0 mg/dLCreatinine1.020.55-1.02 mg/dLEstimated GFR ( Alecia>60 >=60 mL/min/1.73m 2Estimated GFR (Non- Ame52>=60 mL/min/1.73m 2BUN Creatinine Ratio17.0Cejvyvi47.58.5-10.1 mg/dLBilirubin Total0.50.2-1.0 mg/dL Aspartate Amino Knebodjwrmk520-45 U/LAlanine Aminotransferase<614-59 U/LAlkaline Euuwjsevgmk46606-761 U/LTotal Protein6.36.4-8.2 g/dLAlbumin Level3.33.4-5.0 g/dL Globulin3.0Albumin Globulin Ratio1.1Performing Lab:see noteML - [facility] LBPROF CHEM 8 (BAS METB) Reviewed date:10/23/2024 02:24:58 PM Interpretation: Performing Lab: Notes/Report: [facility] ,Kqkbkp732025-273 mmol/LPotassium3.93.5-5.1 mmol/YTemeqrlo53912-235 mmol/LCarbon Vkjhdil53.321.0-32.0 mmol/LAnion Gap9.4Kadxfvf3357-009 mg/dLBlood Urea Nitrogen 21.07.0-18.0 mg/dLCreatinine0.870.55-1.02 mg/dLEstimated GFR ( Alecia>60 >=60 mL/min/1.73m 2Estimated GFR (Non- Zuleika>60>=60 mL/min/1.73m 2BUN Creatinine Ratio24.2Fneriqk16.68.5-10.1 mg/dLPerforming Lab:see noteML - [facility] LBUA RANDOM W or MICROSCOPIC Reviewed date:10/23/2024 03:34:50 PM Interpretation: Performing Lab: Notes/Report: [facility] ,Color UrineLT. YELLOWYELLOWClarity UrineCLEARCLEARSpecific [place] Urine1.015 1.005-1.025pH Urine6.05.0-9.0Protein UrineNEGATIVENEG/TRACE mg/dLGlucose Urine UANEGATIVENEGATIVE mg/dLBilirubin UrineNEGATIVENEGATIVEKetones UrineNEGATIVE NEGATIVE mg/dLBlood UrineTRACE-INEGATIVENitrite UrineNEGATIVENEGATIVE Urobilinogen Urine0.20.2-1.0 EU/dLLeukocyte Esterase UrineNEGATIVENEGATIVEWBC Urine2-5NONE SEEN #/HPFRBC Urine2-50-2 #/HPFBacteria UrineTRACENONE SEEN #/HPF Mucus UrineNONE SEENNONE SEENSquamous Epithelial Cell UrineRARENONE/RARE #/LPF Crystals Seen?None SeenNone Seen #/HPFCast Seen?NONE SEENNONE SEEN #/LPFUrine Culture IndicatedALREADY ORDEREDPerforming Lab:see noteML - [facility] LBUrine Culture - [facility] Reviewed date:10/28/2024 08:43:52 PM Interpretation: Performing Lab: Notes/Report: [facility] ,Urine Culture - FRMCSee Below For Report Urine Culture - [facility] No Growth 2 Days Urine Culture - [facility] Urine Culture - [facility] No Growth 2 Days Urine Culture - FRMCTesting performed [facility] Urine Culture - [facility] No Growth 2 Days Urine Culture - [id number] [place] [address] Urine Culture - [facility] No Growth 2 Days Urine Culture - [facility] Urine Culture - [facility] No Growth 2 Days Urine Culture - [facility]* This is a corrected result. * Urine Culture - [facility] No Growth 2 Days Urine Culture - [facility] Urine Culture - [facility] No Growth 2 Days Urine Culture - FR[facility]CA prior result that was reported as final has been changed. 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 legend CBC AUTO DIFF Reviewed date:10/26/2024 03:26:04 PM Interpretation: Performing Lab: Notes/Report: [facility] ,White Blood Count9.44.0-11.0 10 3/uLRed Blood Count3.854.20-5.40 10 6/uL Sqhahmouot18.312.0-16.0 g/bNHbyiiwmmkx88.236.0-48.0 %Mean Corpuscular Zoefra89.6 81.0-99.0 fLMean Corpuscular Gsnllkcnuc25.926.7-34.0 pgMean Corpuscular HGB Conc 33.129.9-35.2 g/dLRed Cell Distribution Width15.911.0-15.0 %Platelet Nqauj893 150-450 10 3/uLMean Platelet Eldejp66.29.5-13.5 fLNeutrophils Percent Auto74.3 43.0-75.0 %Lymphocytes Percent Auto13.820.5-60.0 %Monocytes Percent Auto11.01.7- 12.0 %Eosinophils Percent Auto0.20.9-7.0 %Basophils Percent Auto0.60.2-2.0 % Immature Granulocytes Pct Auto0.10.0-0.5 %Neutrophils Absolute Auto6.91.4-6.5 10 3/uLLymphocytes Absolute Auto1.31.2-3.8 10 3/uLMonocytes Absolute Auto1.00.3-0.8 10 3/uLEosinophils Absolute Auto0.00.0-0.7 10 3/uLBasophils Absolute Auto0.10.0- 0.1 10 3/uLImmature Granulocytes Abs Auto0.010.00-0.03 10 3/uLPerforming Lab:see noteML - [facility] LBMAGNESIUM Reviewed date:10/26/2024 03:26:04 PM Interpretation: Performing Lab: Notes/Report: [facility] ,Magnesium1.91.8-2.4 mg/dLPerforming Lab:see noteML - [facility] LBUA RANDOM W or MICROSCOPIC Reviewed date:10/26/2024 03:26:04 PM Interpretation: Performing Lab: Notes/Report: [facility] ,Color UrineLT. YELLOWYELLOWClarity UrineCLEARCLEARSpecific [place] Urine1.020 1.005-1.025pH Urine6.05.0-9.0Protein Fpcos93ZDF/TRACE mg/dLGlucose Urine UA NEGATIVENEGATIVE mg/dLBilirubin UrineNEGATIVENEGATIVEKetones UrineTRACENEGATIVE mg/dLBlood UrineNEGATIVENEGATIVENitrite UrineNEGATIVENEGATIVEUrobilinogen Urine 0.20.2-1.0 EU/dLLeukocyte Esterase UrineSMALLNEGATIVEWBC Urine5-10NONE SEEN #/HPFRBC Urine0-20-2 #/HPFBacteria UrineSMALLNONE SEEN #/HPFMucus UrineNONE SEEN NONE SEENSquamous Epithelial Cell UrineRARENONE/RARE #/LPFCrystals Seen?SeenNone Seen #/HPFCalcium Oxalate Crystals UrineRARECast Seen?NONE SEENNONE SEEN #/LPF Urine Culture IndicatedYES-FRMCPerforming Lab:see noteML - [facility] LBUrine Culture - [facility] Reviewed date:10/27/2024 12:42:29 PM Interpretation: Performing Lab: Notes/Report: [facility] ,Urine Culture - FRMCSee Below For Report Urine Culture - [facility] No Growth 2 Days Urine Culture - [facility] Urine Culture - [facility] No Growth 2 Days Urine Culture - FRMCTesting performed at [facility] Urine Culture - [facility] No Growth 2 Days Urine Culture - [id number] [place] [address] Urine Culture - [facility] No Growth 2 Days Performing Lab:see noteML - [facility] LBAMMONIA Reviewed date:10/26/2024 03:26:04 PM Interpretation: Performing Lab: Notes/Report: [facility] ,Ammonia<1011-32 umol/LPerforming Lab:see note - [facility] LBCRP Reviewed date:10/26/2024 03:26:04 PM Interpretation: Performing Lab: Notes/Report: [facility] ,C Reactive Protein0.54<=0.50 mg/dLPerforming Lab:see note - [facility] LBCBC AUTO DIFF Reviewed date:10/26/2024 03:26:04 PM Interpretation: Performing Lab: Notes/Report: [facility] ,White Blood Count6.64.0-11.0 10 3/uLRed Blood Count3.564.20-5.40 10 6/uL Wjfevgdizy13.412.0-16.0 g/vREakgxjnips39.036.0-48.0 %Mean Corpuscular Biqpzl51.5 81.0-99.0 fLMean Corpuscular Gxvifwkjnj19.026.7-34.0 pgMean Corpuscular HGB Conc 33.529.9-35.2 g/dLRed Cell Distribution Width15.911.0-15.0 %Platelet Zcxpf290 150-450 10 3/uLMean Platelet Vdciqo08.49.5-13.5 fLNeutrophils Percent Auto70.6 43.0-75.0 %Lymphocytes Percent Auto14.020.5-60.0 %Monocytes Percent Auto13.41.7- 12.0 %Eosinophils Percent Auto0.60.9-7.0 %Basophils Percent Auto1.20.2-2.0 % Immature Granulocytes Pct Auto0.20.0-0.5 %Neutrophils Absolute Auto4.71.4-6.5 10 3/uLLymphocytes Absolute Auto0.91.2-3.8 10 3/uLMonocytes Absolute Auto0.90.3-0.8 10 3/uLEosinophils Absolute Auto0.00.0-0.7 10 3/uLBasophils Absolute Auto0.10.0- 0.1 10 3/uLImmature Granulocytes Abs Auto0.010.00-0.03 10 3/uLPerforming Lab:see noteML - [facility] LBBLOOD CULTURE ID PANEL Reviewed date:10/26/2024 03:26:04 PM Interpretation: Performing Lab: Notes/Report: [facility] ,CTX-MNOT APPLICABLENOT DETECTEIMPNOT APPLICABLENOT DETECTEKPCNOT APPLICABLENOT DETECTEmcr-1NOT APPLICABLENOT DETECTEmecA/CNOT APPLICABLENOT DETECTEmecA/C and MREJ (MRSA)NOT APPLICABLENOT DETECTENDMNOT APPLICABLENOT FGKUWSIZET-51-vhazAZC APPLICABLENOT DETECTEvanA/BNOT APPLICABLENOT DETECTEVIMNOT APPLICABLENOT DETECTE SourceBLOODEnterococcus faecalisNOT DETECTEDNOT DETECTEEnterococcus faeciumNOT DETECTEDNOT DETECTEListeria monocytogenesNOT DETECTEDNOT DETECTEStaphylococcus spp.NOT DETECTEDNOT DETECTEStaphylococcus aureusNOT DETECTEDNOT DETECTE Staphylococcus epidermidisNOT DETECTEDNOT DETECTEStaphylococcus lugdunensisNOT DETECTEDNOT DETECTEStreptococcus spp.NOT DETECTEDNOT DETECTEStreptococcus agalactiaeNOT DETECTEDNOT DETECTEStreptococcus pneumoniaeNOT DETECTEDNOT DETECTE Streptococcus pyogenesNOT DETECTEDNOT DETECTEA. calcoaceticus-baumannii CpxNOT DETECTEDNOT DETECTEBacteroides fragilisNOT DETECTEDNOT DETECTEEnterobacterales NOT DETECTEDNOT DETECTEEnterobacter cloacae complexNOT DETECTEDNOT DETECTE Escherichia coliNOT DETECTEDNOT DETECTEKlebsiella aerogenesNOT DETECTEDNOT DETECTEKlebsiella oxytocaNOT DETECTEDNOT DETECTEKlebsiella pneumoniae groupNOT DETECTEDNOT DETECTEProteus spp.NOT DETECTEDNOT DETECTESalmonella spp.NOT DETECTEDNOT DETECTESerratia marcescensNOT DETECTEDNOT DETECTEHaemophilus influenzaeNOT DETECTEDNOT DETECTENeisseria meningitidisNOT DETECTEDNOT DETECTE Pseudomonas aeruginosaNOT DETECTEDNOT DETECTEStenotrophomonas maltophiliaNOT DETECTEDNOT DETECTECandida albicansNOT DETECTEDNOT DETECTECandida aurisNOT DETECTEDNOT DETECTECandida glabrataNOT DETECTEDNOT DETECTECandida kruseiNOT DETECTEDNOT DETECTECandida parapsilosisNOT DETECTEDNOT DETECTECandida tropicalis NOT DETECTEDNOT DETECTECryptococcus neoformans/gattiiNOT DETECTEDNOT DETECTE Performing Lab:see noteML - [facility] LBCBC AUTO DIFF Reviewed date:10/26/2024 03:26:04 PM Interpretation: Performing Lab: Notes/Report: [facility] ,White Blood Count8.44.0-11.0 10 3/uLRed Blood Count3.724.20-5.40 10 6/uL Ywabfzrhbo94.612.0-16.0 g/rXYgcuqrorkm85.836.0-48.0 %Mean Corpuscular Skxfio45.2 81.0-99.0 fLMean Corpuscular Opromqabbd76.226.7-34.0 pgMean Corpuscular HGB Conc 32.429.9-35.2 g/dLRed Cell Distribution Width16.011.0-15.0 %Platelet Gmudx465 150-450 10 3/uLMean Platelet Rhcfie47.09.5-13.5 fLNeutrophils Percent Auto79.3 43.0-75.0 %Lymphocytes Percent Auto10.720.5-60.0 %Monocytes Percent Auto9.01.7- 12.0 %Eosinophils Percent Auto0.10.9-7.0 %Basophils Percent Auto0.80.2-2.0 % Immature Granulocytes Pct Auto0.10.0-0.5 %Neutrophils Absolute Auto6.71.4-6.5 10 3/uLLymphocytes Absolute Auto0.91.2-3.8 10 3/uLMonocytes Absolute Auto0.80.3-0.8 10 3/uLEosinophils Absolute Auto0.00.0-0.7 10 3/uLBasophils Absolute Auto0.10.0- 0.1 10 3/uLImmature Granulocytes Abs Auto0.010.00-0.03 10 3/uLPerforming Lab:see noteML - [facility] LBPROF 14(COMP METB) Reviewed date:10/26/2024 03:26:04 PM Interpretation: Performing Lab: Notes/Report: [facility] ,Fgcqsq901558-482 mmol/LPotassium3.13.5-5.1 mmol/NAbmciegr18164-793 mmol/LCarbon Tolkyhc70.021.0-32.0 mmol/LAnion Gap15.9Qalbxck49285-946 mg/dLBlood Urea Zpiesmzu58.07.0-18.0 mg/dLCreatinine1.060.55-1.02 mg/dLEstimated GFR ( Alecia>60>=60 mL/min/1.73m 2Estimated GFR (Non- Ame50>=60 mL/min/1.73m 2 BUN Creatinine Ratio16.4Anfuckl22.78.5-10.1 mg/dLBilirubin Total0.40.2-1.0 mg/dL Aspartate Amino Oprvoytmzol4516-53 U/LAlanine Eimgjrinbrjjwzqm5238-28 U/L Alkaline Wsuvgpmvsdn05494-691 U/LTotal Protein6.56.4-8.2 g/dLAlbumin Level3.7 3.4-5.0 g/dLGlobulin2.8Albumin Globulin Ratio1.3Performing Lab:see noteML - [facility] LBCBC AUTO DIFF Reviewed date:10/26/2024 03:26:04 PM Interpretation: Performing Lab: Notes/Report: [facility] ,White Blood Count10.84.0-11.0 10 3/uLRed Blood Count3.954.20-5.40 10 6/uL Wnpnugvjrv92.512.0-16.0 g/pCQejmdntwau90.236.0-48.0 %Mean Corpuscular Mhejbc10.2 81.0-99.0 fLMean Corpuscular Txvqwdhqyz58.626.7-34.0 pgMean Corpuscular HGB Conc 33.629.9-35.2 g/dLRed Cell Distribution Width15.311.0-15.0 %Platelet Pjbop182 150-450 10 3/uLMean Platelet Fsnkfo25.69.5-13.5 fLPerforming Lab:see noteML - [facility] LBMAGNESIUM Reviewed date:10/26/2024 03:26:04 PM Interpretation: Performing Lab: Notes/Report: [facility] ,Magnesium2.41.8-2.4 mg/dLPerforming Lab:see note - [facility] LB PROF 14(COMP METB) Reviewed date:10/26/2024 03:26:04 PM Interpretation: Performing Lab: Notes/Report: [facility] ,Kvbpou870203-623 mmol/LPotassium3.43.5-5.1 mmol/UXugpeczp21252-613 mmol/LCarbon Uhyfvam05.121.0-32.0 mmol/LAnion Gap13.0Fholzkf8645-826 mg/dLBlood Urea Nitrogen 25.07.0-18.0 mg/dLCreatinine1.030.55-1.02 mg/dLEstimated GFR ( Alecia>60 >=60 mL/min/1.73m 2Estimated GFR (Non- Ame52>=60 mL/min/1.73m 2BUN Creatinine Ratio24.9Ltpipuk14.28.5-10.1 mg/dLBilirubin Total0.60.2-1.0 mg/dL Aspartate Amino Yspkyipatpj7583-38 U/LAlanine Pqfktapcxfhappvb9665-73 U/L Alkaline Zqqluphvsbk86230-413 U/LTotal Protein6.66.4-8.2 g/dLAlbumin Level3.7 3.4-5.0 g/dLGlobulin2.9Albumin Globulin Ratio1.3Performing Lab:see noteML - [facility] LBPROF CHEM 8 (BAS METB) Reviewed date:10/26/2024 03:26:04 PM Interpretation: Performing Lab: Notes/Report: [facility] ,Jjdgwj418938-412 mmol/LPotassium3.43.5-5.1 mmol/DImjvqsgx90924-722 mmol/LCarbon Terwhsx96.021.0-32.0 mmol/LAnion Gap11.7Unpqifx5274-961 mg/dLBlood Urea Nitrogen 33.07.0-18.0 mg/dLCreatinine1.210.55-1.02 mg/dLEstimated GFR ( Dpymsmr45 >=60 mL/min/1.73m 2Estimated GFR (Non- Ame43>=60 mL/min/1.73m 2BUN Creatinine Ratio27.7Ltndbvw94.48.5-10.1 mg/dLPerforming Lab:see noteML - [facility] LBUA RANDOM Reviewed date:10/26/2024 09:41:08 PM Interpretation: Performing Lab: Notes/Report: [facility] ,Color UrineLT. YELLOWYELLOWClarity UrineCLEARCLEARSpecific [place] Urine1.015 1.005-1.025pH Urine6.05.0-9.0Protein Argpp10HAP/TRACE mg/dLGlucose Urine UA NEGATIVENEGATIVE mg/dLBilirubin UrineNEGATIVENEGATIVEKetones Vagzr90MJKRTANJ mg/dLBlood UrineMODERATENEGATIVENitrite UrineNEGATIVENEGATIVEUrobilinogen Urine 0.20.2-1.0 EU/dLLeukocyte Esterase UrineNEGATIVENEGATIVEPerforming Lab:see note ML - [facility] LBManual Differential Reviewed date:10/26/2024 03:26:04 PM Interpretation: Performing Lab: Notes/Report: [facility] ,Segmented Neutrophils % Bvxkcu60.043.0-75.0Lymphocytes Percent Wiwcsg83.020.5- 60.0 %Monocytes Percent Omhxdk92.01.7-12.0 %Eosinophils Percent Manual1.00.9-7.0 %Basophils Percent Manual0.00.2-2.0 %Segmented Neut Absolute Manual7.991.4-6.5 10 3/uLLymphocytes Absolute Manual1.181.20-3.80 10 3/uLMonocytes Absolute Manual 1.510.30-0.80 10 3/uLEosinophils Absolute Manual0.100.00-0.70 10 3/uLBasophils Abs Manual0.000.00-0.10 10 3/uLPerforming Lab:see noteML - [facility] LBTroponin I High Sensitivity Reviewed date:10/26/2024 03:26:04 PM Interpretation: Performing Lab: Notes/Report: [facility] ,Troponin I High Obqbnphcebe346.64.0-51.3 pg/mL RESULTS CALLED TO DANIELA PEREZ RN CUT-OFF POINTS HAVE BEEN ESTABLISHED BASED ON THE FOURTH UNIVERSAL DEFINITION OF MYOCARDIAL INFARCTION. THE UPPER REFERENCE LIMIT (URL) OF TROPONIN, DEFINED THE 99TH PERCENTILE OF cTnI DISTRIBUTION IN A REFERENCE POPULATION, HAS BEEN CONFIRMED THE DECISION THRESHOLD FOR [place] DIAGNOSIS. 99TH PERCENTILE = 51.4 PG/ML NOTE: HIGH-SENSITIVITY TROPONIN ASSAY IS NOT INTENDED TO BE USED IN ISOLATION BUT SHOULD BE INTERPRETED IN CONJUNCTION WITH OTHER DIAGNOSTIC AND CLINICAL INFORMATION. Performing Lab:see note - [facility] LBECG 12 lead Reviewed date:10/26/2024 09:41:08 PM Interpretation: Performing Lab: Notes/Report: Source Facility: [place] [address] Electrocardiograph Report Signed Patient: JUDITH LAND MR#: [id number] : 1945 Acct:[id number] Age/Sex: 79 / F ADM Date: 10/22/24 Loc: MS 217-[address]: Rodrick Leary M.D. Ordering Physician: Rodrick Leary M.D. 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 Measurements Intervals Starlight Rate: 123 P: TN: QRS: 5 QRSD: 90 T: 53 QT: 284 QTc: 406 Interpretive Statements Sinus rhythm with frequent premature supraventricular complexes and a run of atrial tachycardia MINIMAL VOLTAGE CRITERIA FOR LVH, CONSIDER NORMAL VARIANT [MEETS CRITERIA IN ONE OF: R(aVL), S(V1), R(V5), R(V5/V6)+S(V1)] SEPTAL MYOCARDIAL INFARCTION [40+ ms Q WAVE IN V1/V2], OF INDETERMINATE AGE Compared to ECG 10/22/2024 20:47:35 Premature supraventricular complexes are now present Atrial tachycardia is now present Electronically Signed On 10-26-2024 17:16:25 EDT by ANDREW MARISCAL M.D. Dictated By: ANDREW MARISCAL Signed By: 10/26/24 1716 DD/ 1325 TD/TT: Sander [employer] Pencils:Troponin I High Sensitivity Reviewed date:10/26/2024 09:41:08 PM Interpretation: Performing Lab: Notes/Report: [facility] ,Troponin I High Ywcamfmeutz080.34.0-51.3 pg/mL RESULTS CALLED TO SHAUN ZAVALETA CUT-OFF POINTS HAVE BEEN ESTABLISHED BASED ON THE FOURTH UNIVERSAL DEFINITION OF MYOCARDIAL INFARCTION. THE UPPER REFERENCE LIMIT (URL) OF TROPONIN, DEFINED THE 99TH PERCENTILE OF cTnI DISTRIBUTION IN A REFERENCE POPULATION, HAS BEEN CONFIRMED THE DECISION THRESHOLD FOR MO DIAGNOSIS. 99TH PERCENTILE = 51.4 PG/ML NOTE: HIGH-SENSITIVITY TROPONIN ASSAY IS NOT INTENDED TO BE USED IN ISOLATION BUT SHOULD BE INTERPRETED IN CONJUNCTION WITH OTHER DIAGNOSTIC AND CLINICAL INFORMATION. Performing Lab:see noteML - [facility] LBTroponin I High Sensitivity Reviewed date:10/26/2024 09:41:08 PM Interpretation: Performing Lab: Notes/Report: [facility] ,Troponin I High Xtjqawadeiz820.64.0-51.3 pg/mL RESULTS CALLED TO VITO DEWITT RN @BY Alyson Rice at 1906 CUT-OFF POINTS HAVE BEEN ESTABLISHED BASED ON THE FOURTH UNIVERSAL DEFINITION OF MYOCARDIAL INFARCTION. THE UPPER REFERENCE LIMIT (URL) OF TROPONIN, DEFINED THE 99TH PERCENTILE OF cTnI DISTRIBUTION IN A REFERENCE POPULATION, HAS BEEN CONFIRMED THE DECISION THRESHOLD FOR MO DIAGNOSIS. 99TH PERCENTILE = 51.4 PG/ML NOTE: HIGH-SENSITIVITY TROPONIN ASSAY IS NOT INTENDED TO BE USED IN ISOLATION BUT SHOULD BE INTERPRETED IN CONJUNCTION WITH OTHER DIAGNOSTIC AND CLINICAL INFORMATION. Performing Lab:see noteML - [facility] LBAMMONIA Reviewed date:10/27/2024 12:42:29 PM Interpretation: Performing Lab: Notes/Report: [facility] ,Ammonia<1011-32 umol/LPerforming Lab:see note - [facility] LBBLOOD GASES BTY Reviewed date:10/27/2024 12:42:29 PM Interpretation: Performing Lab: Notes/Report: [facility] ,pH ABG7.4527.350-7.450ABG ZRT178.035.0-45.0 mmHgPO2 ABG54.880.0-100.0 mmHg RESULTS CALLED TO GENE BURRELL RN at [id number] ABG27.922.0-26.0 mmol/LBase Excess ABG3.9-2.0-2.0 mmol/LOxygen Saturation ABG89.8Allen TestPOSITIVEPOSITIVEO2 Mode NASAL CANNULALiters per Wsxmwg9Likwnhpo SiteRT RADIALPerforming Lab:see note - [facility] LBBNP Reviewed date:10/27/2024 12:42:29 PM Interpretation: Performing Lab: Notes/Report: [facility] ,NT Pro B Type Natriuretic Bzld1797.0<=1800.0 pg/mLPerforming Lab:see note - [facility] LBCBC AUTO DIFF Reviewed date:10/27/2024 12:42:29 PM Interpretation: Performing Lab: Notes/Report: [facility] ,White Blood Count9.14.0-11.0 10 3/uLRed Blood Count4.064.20-5.40 10 6/uL Lhrwncwaha51.012.0-16.0 g/gUOhjhwrjmkj01.536.0-48.0 %Mean Corpuscular Dgtzgm26.8 81.0-99.0 fLMean Corpuscular Udzjpndeca49.026.7-34.0 pgMean Corpuscular HGB Conc 33.829.9-35.2 g/dLRed Cell Distribution Width15.511.0-15.0 %Platelet Kscku272 150-450 10 3/uLMean Platelet Vifjzm04.29.5-13.5 fLNeutrophils Percent Auto76.1 43.0-75.0 %Lymphocytes Percent Auto10.320.5-60.0 %Monocytes Percent Auto13.01.7- 12.0 %Eosinophils Percent Auto0.10.9-7.0 %Basophils Percent Auto0.30.2-2.0 % Immature Granulocytes Pct Auto0.20.0-0.5 %Neutrophils Absolute Auto6.91.4-6.5 10 3/uLLymphocytes Absolute Auto0.91.2-3.8 10 3/uLMonocytes Absolute Auto1.20.3-0.8 10 3/uLEosinophils Absolute Auto0.00.0-0.7 10 3/uLBasophils Absolute Auto0.00.0- 0.1 10 3/uLImmature Granulocytes Abs Auto0.020.00-0.03 10 3/uLPerforming Lab:see noteML - [facility] LBPROF 14(COMP METB) Reviewed date:10/27/2024 12:42:29 PM Interpretation: Performing Lab: Notes/Report: [facility] ,Ptxchk938469-756 mmol/LPotassium3.33.5-5.1 mmol/HIhuxpxsx21443-768 mmol/LCarbon Flrvurs65.921.0-32.0 mmol/LAnion Gap13.7Thcnhyt51669-280 mg/dLBlood Urea Tswxvtia17.07.0-18.0 mg/dLCreatinine1.210.55-1.02 mg/dLEstimated GFR ( Kgkeozl79>=60 mL/min/1.73m 2Estimated GFR (Non- Ame43>=60 mL/min/1.73m 2 BUN Creatinine Ratio30.2Xlajaqq29.18.5-10.1 mg/dLBilirubin Total0.60.2-1.0 mg/dL Aspartate Amino Wcnoqrdnrow2761-17 U/LAlanine Krtgxrmxfqnipiun876-43 U/LAlkaline Mzckruicyjj00433-245 U/LTotal Protein6.26.4-8.2 g/dLAlbumin Level3.53.4-5.0 g/dL Globulin2.7Albumin Globulin Ratio1.3Performing Lab:see noteML - [facility] LBPROF CHEM 8 (BAS METB) Reviewed date:10/27/2024 12:42:29 PM Interpretation: Performing Lab: Notes/Report: [facility] ,Aytrqw312923-291 mmol/LPotassium3.33.5-5.1 mmol/LGcsustvh99514-135 mmol/LCarbon Iomyzut65.621.0-32.0 mmol/LAnion Gap14.3Chymbir25722-323 mg/dLBlood Urea Ejlfldtt80.07.0-18.0 mg/dLCreatinine1.170.55-1.02 mg/dLEstimated GFR ( Dtpiqqx66>=60 mL/min/1.73m 2Estimated GFR (Non- Ame45>=60 mL/min/1.73m 2 BUN Creatinine Ratio31.1Qmvrxmc46.98.5-10.1 mg/dLPerforming Lab:see note - [facility] LBTroponin I High Sensitivity Reviewed date:10/27/2024 12:42:29 PM Interpretation: Performing Lab: Notes/Report: [facility] ,Troponin I High Dffnrirnteq840.74.0-51.3 pg/mL RESULTS CALLED TO VITO DEWITT RN @BY Alyson Rice at 0628 CUT-OFF POINTS HAVE BEEN ESTABLISHED BASED ON THE FOURTH UNIVERSAL DEFINITION OF MYOCARDIAL INFARCTION. THE UPPER REFERENCE LIMIT (URL) OF TROPONIN, DEFINED THE 99TH PERCENTILE OF cTnI DISTRIBUTION IN A REFERENCE POPULATION, HAS BEEN CONFIRMED THE DECISION THRESHOLD FOR MO DIAGNOSIS. 99TH PERCENTILE = 51.4 PG/ML NOTE: HIGH-SENSITIVITY TROPONIN ASSAY IS NOT INTENDED TO BE USED IN ISOLATION BUT SHOULD BE INTERPRETED IN CONJUNCTION WITH OTHER DIAGNOSTIC AND CLINICAL INFORMATION. Performing Lab:see noteML - [facility] LBMR head/brain wo con Reviewed date:10/27/2024 12:42:29 PM Interpretation: Performing Lab: Notes/Report: Source Facility: [place] [address] Magnetic Resonance Report Signed Patient: JUDITH LAND MR#: [id number] : 1945 Acct:[id number] Age/Sex: 79 / F ADM Date: 10/22/24 Loc: [place] 217-[address]: Rodrick Leary M.D. Ordering Physician: Rodrick Leary M.D. Date of Service: 10/27/24 Procedure(s): MR head/brain wo con Accession Number(s): [id number] cc: Rodrick Leary M.D. [place] [address] Patient Name: JUDITH LAND MRN: [id number] date: 1945 Sex: F Assigned Patient Location: [place] Current Patient Location: [place] Accession/Order Number: [id number] Exam Date: 10/27/2024 12:19 Report Date: 10/27/2024 12:21 At the request of: RODRICK LEARY MD Procedure: MR head/brain wo con MR head/brain wo con 10/27/2024 11:59 AM SIGN AND SYMPTOMS: AMS, Afib PROTOCOL: Multiplanar multisequence MR images of the brain without IV contrast COMPARISON: 10/23/2024 FINDINGS: Motion artifact degrades image quality. Extra axial spaces: There is age-related cortical atrophy. Hemorrhage: None. Ventricular system: Within normal limits. Basal cisterns: Within normal limits and not effaced. Cerebral parenchyma: Periventricular and subcortical white matter T2 and T2 FLAIR hyperintense signal is noted consistent with chronic microvascular ischemic change. No evidence of acute or subacute ischemia. Midline shift: None.. Cerebellum: Within normal limits. Brainstem: Within normal limits. OTHER: Calvarium: Normal marrow signal. Vascular system: Satisfactory flow voids within the anterior and posterior circulation. Visualized Paranasal sinuses: Within normal limits. Visualized Orbits: Within normal limits. Visualized upper cervical spine: Within normal limits. Sella and skull base: Within normal limits. MR/MR head/brain wo con IMPRESSION: No evidence of acute or subacute ischemia. 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 Impression dictated by: Caleb Meyer M.D. 10/27/2024 12:21 PM Dictation Location: [place] [address] Electronically authenticated by: [id number] Y Date: 10/27/2024 12:21 Dictated By: Caleb Meyer M.D. Signed By: 10/27/24 1224 DD/ 1221 TD/TT: Sander Wooden Pencils:XR acute abdomen series Reviewed date:10/27/2024 12:42:29 PM Interpretation: Performing Lab: Notes/Report: Source Facility: [place] [address] XRay Report Signed Patient: JUDITH LAND MR#: [id number] : 1945 Acct:[id number] Age/Sex: 79 / F ADM Date: 10/22/24 Loc: [place] 217-[address]: Rodrick Leary M.D. Ordering Physician: Rodrick Leary M.D. Date of Service: 10/27/24 Procedure(s): XR acute abdomen series Accession Number(s): [id number] cc: Rodrick Leary M.D. [place] [address] Patient Name: JUDITH LAND MRN: [id number] date: 1945 Sex: F Assigned Patient Location: [place] Current Patient Location: [place] Accession/Order Number: [id number] Exam Date: 10/27/2024 09:59 Report Date: 10/27/2024 10:01 At the request of: RODRICK LEARY MD Procedure: XR acute abdomen series XR acute abdomen series 10/27/2024 9:33 AM SIGNS AND SYMPTOMS: ileus, constipation, atelectatis follow up N PROTOCOL: Frontal radiograph of the chest with frontal radiographs of the abdomen and pelvis COMPARISON: 10/26/2024 FINDINGS: The trachea is midline. Atherosclerotic changes are noted in the thoracic aorta. The heart and mediastinal structures are within normal limits. The lung parenchyma is clear. The bony thorax is intact. Degenerative changes are noted in the shoulders and thoracic spine. Mildly distended loops of air-filled bowel are noted with a moderate amount stool in the colon similar to the prior exam. No radiographic evidence of free air. XR/XR acute abdomen series IMPRESSION: No acute cardiopulmonary pathology. Mildly distended loops of air-filled bowel are noted with a moderate amount stool in the colon similar to the prior exam. No radiographic evidence of free air. Impression dictated by: Caleb Meyer M.D. 10/27/2024 10:01 AM Dictation Location[facility] Electron[facility] authenticated by: [id number] Y Date: 10/27/2024 10:01 Dictated By: Caleb Meyer M.D. Signed By: 10/27/24 1011 DD/ 1001 TD/TT: Sander Wooden Pencils:BNP Reviewed date:10/27/2024 12:42:29 PM Interpretation: Performing Lab: Notes/Report: [facility] ,NT Pro B Type Natriuretic Vrxu8676.0<=1800.0 pg/mLPerforming Lab:see noteML - [facility] LBAMMONIA Reviewed date:10/28/2024 08:43:52 PM Interpretation: Performing Lab: Notes/Report: [facility] ,Ammonia<1011-32 umol/LPerforming Lab:see note - [facility] LBBNP Reviewed date:10/28/2024 08:43:52 PM Interpretation: Performing Lab: Notes/Report: [facility] ,NT Pro B Type Natriuretic Fktg3352.0<=1800.0 pg/mLPerforming Lab:see noteML - [facility] LBCBC AUTO DIFF Reviewed date:10/28/2024 08:43:52 PM Interpretation: Performing Lab: Notes/Report: [facility] ,White Blood Count10.74.0-11.0 10 3/uLRed Blood Count4.244.20-5.40 10 6/uL Hcknqrpoqy53.612.0-16.0 g/aPPgjmodmtjv40.236.0-48.0 %Mean Corpuscular Jzlfdr10.2 81.0-99.0 fLMean Corpuscular Mcbkvfhcyy77.126.7-34.0 pgMean Corpuscular HGB Conc 33.029.9-35.2 g/dLRed Cell Distribution Width16.011.0-15.0 %Platelet Lkeck575 150-450 10 3/uLMean Platelet Ugpeam42.39.5-13.5 fLNeutrophils Percent Auto88.4 43.0-75.0 %Lymphocytes Percent Auto4.620.5-60.0 %Monocytes Percent Auto6.61.7- 12.0 %Eosinophils Percent Auto0.00.9-7.0 %Basophils Percent Auto0.10.2-2.0 % Immature Granulocytes Pct Auto0.30.0-0.5 %Neutrophils Absolute Auto9.41.4-6.5 10 3/uLLymphocytes Absolute Auto0.51.2-3.8 10 3/uLMonocytes Absolute Auto0.70.3-0.8 10 3/uLEosinophils Absolute Auto0.00.0-0.7 10 3/uLBasophils Absolute Auto0.00.0- 0.1 10 3/uLImmature Granulocytes Abs Auto0.030.00-0.03 10 3/uLPerforming Lab:see noteML - [facility] LBMAGNESIUM Reviewed date:10/28/2024 08:43:52 PM Interpretation: Performing Lab: Notes/Report: [facility] ,Magnesium2.91.8-2.4 mg/dLPerforming Lab:see noteML - [facility] LB PROF 14(COMP METB) Reviewed date:10/28/2024 08:43:52 PM Interpretation: Performing Lab: Notes/Report: [facility] ,Vhcjlj402274-732 mmol/L RESULTS CALLED TO STARR BOWDEN RN @BY Alyson Rice at 0628 Potassium3.53.5-5.1 mmol/CBaxizbhh03514-426 mmol/LCarbon Dxuorxm80.121.0-32.0 mmol/LAnion Gap12.3Vjgifxf62024-983 mg/dLBlood Urea Tyupvsqn69.07.0-18.0 mg/dL Creatinine1.660.55-1.02 mg/dLEstimated GFR ( Ccprdnq33>=60 mL/min/1.73m 2 Estimated GFR (Non- Ame30>=60 mL/min/1.73m 2BUN Creatinine Ratio30.7 Dbhbykg23.38.5-10.1 mg/dLBilirubin Total0.60.2-1.0 mg/dLAspartate Amino Mxmifnudgiq2163-14 U/LAlanine Efrvlptcjnokfzev3020-97 U/LAlkaline Pgxlfcfyhay517 46-116 U/LTotal Protein6.16.4-8.2 g/dLAlbumin Level3.13.4-5.0 g/dLGlobulin3.0 Albumin Globulin Ratio1.0Performing Lab:see noteML - [facility] LB Troponin I High Sensitivity Reviewed date:10/28/2024 08:43:52 PM Interpretation: Performing Lab: Notes/Report: [facility] ,Troponin I High Rqszmmqakem51.54.0-51.3 pg/mL RESULTS CALLED TO STARR BOWDEN RN @BY Alyson Rice at 0626 CUT-OFF POINTS HAVE BEEN ESTABLISHED BASED ON THE FOURTH UNIVERSAL DEFINITION OF MYOCARDIAL INFARCTION. THE UPPER REFERENCE LIMIT (URL) OF TROPONIN, DEFINED THE 99TH PERCENTILE OF cTnI DISTRIBUTION IN A REFERENCE POPULATION, HAS BEEN CONFIRMED THE DECISION THRESHOLD FOR MO DIAGNOSIS. 99TH PERCENTILE = 51.4 PG/ML NOTE: HIGH-SENSITIVITY TROPONIN ASSAY IS NOT INTENDED TO BE USED IN ISOLATION BUT SHOULD BE INTERPRETED IN CONJUNCTION WITH OTHER DIAGNOSTIC AND CLINICAL INFORMATION. Performing Lab:see noteML - [facility] LBVenous Blood Gas Reviewed date:10/28/2024 08:43:52 PM Interpretation: Performing Lab: Notes/Report: [facility] ,pH VBG7.4447.330-7.968MFB0 VBG47.840.0-52.0 mmHgPerforming Lab:see noteML - [facility] LBXR abdomen 1V Reviewed date:10/28/2024 08:43:52 PM Interpretation: Performing Lab: Notes/Report: Source Facility: [facility] [place] [address] [place] [address] XRay Report Signed Patient: JUDITH LAND MR#: [id number] : 1945 Acct:[id number] Age/Sex: 79 / F ADM Date: 10/22/24 Loc: [place] 217-[address]: Rodrick Leary M.D. Ordering Physician: Rodrick Leary M.D. Date of Service: 10/28/24 Procedure(s): XR abdomen 1V Accession Number(s): [id number] cc: Rodrick Leary M.D. [place] [address] Patient Name: JUDITH LAND MRN: [id number] date: 1945 Sex: F Assigned Patient Location: [place] Current Patient Location: [place] Accession/Order Number: [id number] Exam Date: 10/28/2024 12:07 Report Date: 10/28/2024 12:09 At the request of: RODRICK LEARY MD Procedure: XR abdomen 1V XR abdomen 1V 10/28/2024 11:52 AM SIGNS AND SYMPTOMS: NG placement Y PROTOCOL: Frontal radiographs of the abdomen COMPARISON: 10/22/2024 FINDINGS: An enteric tube is present with the tip near the expected location of the gastroesophageal junction. This tube could be advanced approximately 6 cm for more adequate positioning. Dilated loops of air-filled bowel are redemonstrated. Contrast is noted in the renal collecting systems. XR/XR abdomen 1V IMPRESSION: An enteric tube is present with the tip near the expected location of the gastroesophageal junction. This tube could be advanced approximately 6 cm for more adequate positioning. Impression dictated by: Caleb Meyer M.D. 10/28/2024 12:09 PM Dictation Location: [place] [address] Electronically authenticated by: [id number] Y Date: 10/28/2024 12:09 Dictated By: Caleb Meyer M.D. Signed By: 10/28/24 1211 DD/ 1209 TD/TT: Sander Wooden Pencils:ONUR echo doppler complete Reviewed date:10/27/2024 06:58:39 PM Interpretation: Performing Lab: Notes/Report: Source Facility: [facility]-[address] [place] [address] [place] [address] Cardiology Report Signed Patient: JUDITH LAND#: [id number] : 1945 Acct:[id number] Age/Sex: 79 / F ADM Date: 10/22/24 Loc: [place] 217-[address]: Rodrick Leary M.D. Ordering Physician: Rodrick Leary M.D. Date of Service: 10/27/24 Procedure(s): CA echo doppler complete Accession Number(s): [id number] cc: Rodrick Leary M.D. Patient Name: JUDITH LAND MR#: [id number] : 1945 Exam Date: 10/27/2024 Ordering Doctor: DR RODRICK LEARY . ECHOCARDIOGRAM REPORT PROCEDURE: CA ECHO DOPPLER COMPLETE INDICATIONS: a fib COMPARISON: None. DESCRIPTION: COMPLETE ECHOCARDIOGRAM Real-time transthoracic echocardiography with 2D, M-mode, spectral and color flow Doppler performed. QUALITY: Technical quality was good. LEFT VENTRICLE: Normal chamber size. Mild concentric left ventricular hypertrophy. Global left ventricular systolic function is normal. LV EF: Calculated left ventricular ejection fraction is 62%. Unchanged from previous study of 06/02/23. DIASTOLIC: Diastolic function is indeterminate. ATRIAL SEPTUM: LEFT ATRIUM: Moderate dilatation. RIGHT ATRIUM: Normal chamber size. RIGHT VENTRICLE: Normal chamber size. Normal right ventricular systolic function. TRICUSPID VALVE: Normal mobility and thickness. No stenosis with mild regurgitation. Moderate pulmonary hypertension. RVSP 46 mmHg MITRAL VALVE: Normal mobility and thickness. No evidence of mitral valve stenosis. There is no mitral annular calcification. Mild mitral regurgitation. AORTIC VALVE: Normal trileaflet appearance. Thickened aortic valve. Normal leaflet mobility. No evidence of aortic valve stenosis. No aortic regurgitation. AORTIC ROOT: Normal diameter and appearance, measuring 3.2 cm. PULMONIC VALVE: Normal thickness and mobility. No stenosis. No regurgitation. PERICARDIUM: No evidence of pericardial effusion. IVC: Collapses with inspirations. Normal size. PLEURA: CONCLUSION: 1. Mild concentric left ventricular hypertrophy with normal systolic function. Estimated LVEF is 60 to 65%. 2. Normal right ventricular size and systolic function. 3. Mild mitral and tricuspid regurgitation. 4. Moderately dilated left atrium. 5. Moderately elevated right-sided pressures. RVSP is 46 mmHg. Adult Echocardiography Procedure Report Left Ventricle LVEDD (3.7 - 5.6 cm): 4.12 cm LVESD (2.2 - 4.0 cm): 3.01 cm LVIVS thickness (0.6 - 1.2 cm): 1.37 cm LVPW thickness (0.5 - 1.0 cm): 1.23 cm e': 0.10 m/s E - e': 3.70 LVOT Max Gradient: 2.46 mm[Hg] LVOT Area (cm2): 0.78 m/s Peak Velocity (LVOT): 0.78 m/s Mean Velocity (LVOT): 0.47 m/s LVOT Diameter 2.09 cm Left Ventricular Ejection Fraction: 61.82 % Left Atrium LA Volume Index (2D A2C): 48.94 ml/m2 Left Atrium Systolic Dimension: 3.14 cm Mitral Valve MV E to A Ratio: 0.54 Mitral Valve A-Wave Peak Velocity: 0.70 m/s Mitral Valve E-Wave Peak Velocity: 0.38 m/s Right Ventricle RV Internal Diastolic Dimension: 3.15 cm Aorta AO Root Diam: 3.21 cm Aortic Valve AoV Area (Peak Noe): 1.68 cm2, 1.68 cm2 AoV Area (VTI): 1.72 cm2, 1.72 cm2 Peak Velocity(Antegrade Flow): 1.59 m/s Peak Gradient(Antegrade Flow): 10.14 mm[Hg] Mean Velocity(Antegrade Flow): 1.01 m/s Mean Gradient(Antegrade Flow): 4.78 mm[Hg] Velocity Time Integral: 29.06 cm Tricuspid Valve Peak Velocity (Regurgitant Flow): 2.51 m/s, 3.26 m/s, 3.08 m/s, 3.16 m/s, 2.88 m/s Pulmonic Valve Peak Velocity: 1.19 m/s Peak Gradient: 6.23 mm[Hg], 5.20 mm[Hg] Right Atrium Right Atrium Systolic Pressure: 20.41 ml, 20.41 ml Dictated by: Andrew Mariscal M.D. on 10/27/2024 at 17:59 Approved by: Andrew Mariscal M.D. on 10/27/2024 at 18:03 Dictated By: ANDREW MARISCAL Signed By: 10/27/241803 DD/ 02 TD/TT: Sander Wooden Pencils:ECG 12 lead Reviewed date:10/27/2024 06:58:39 PM Interpretation: Performing Lab: Notes/Report: Source Facility: [facility]-[address] [place] [address] Electrocardiograph Report Signed Patient: JUDITH LAND MR#: [id number] : 1945 Acct:[id number] Age/Sex: 79 / F ADM Date: 10/22/24 Loc: MS 217- Attending Dr: Rodrick Leary M.D. Ordering Physician: Rodrick Leary M.D. 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 Measurements Intervals Starlight Rate: 96 P: 11 TN: 142 QRS: 4 QRSD: 89 T: 62 QT: 357 QTc: 453 Interpretive Statements SINUS RHYTHM WITH FREQUENT SUPRAVENTRICULAR PREMATURE COMPLEXES MINIMAL VOLTAGE CRITERIA FOR LVH, CONSIDER NORMAL VARIANT [MEETS CRITERIA IN ONE OF: R(aVL), S(V1), R(V5), R(V5/V6)+S(V1)] SEPTAL MYOCARDIAL INFARCTION [40+ ms Q WAVE IN V1/V2], OF INDETERMINATE AGE Compared to ECG 10/26/2024 13:25:54 No significant changes Electronically Signed On 10-27-2024 17:51:52 EDT by ANDREW MARISCAL M.D. Dictated By: ANDREW MARISCAL Signed By: 10/27/24 175 DD/ 0817 TD/TT: Sander Wooden Pencils:Blood Culture 2 Reviewed date:11/01/2024 12:00:26 PM Interpretation: Performing Lab: Notes/Report: RIGHT AC [facility] ,Blood Culture 2See Below For Report Blood Culture 2 NG5D NO GROWTH AT 5 DAYS.^NO GROWTH AT 5 DAYS. Performing Lab:see noteML - [facility] LBBlood Culture 1 Reviewed date:11/01/2024 12:00:26 PM Interpretation: Performing Lab: Notes/Report: LEFT 4ARM [facility] ,Blood Culture 1See Below For Report Blood Culture 1 NG5D NO GROWTH AT 5 DAYS.^NO GROWTH AT 5 DAYS. Performing Lab:see note - [facility] LBLACTATE or LACTIC ACID Reviewed date:10/26/2024 03:26:04 PM Interpretation: Performing Lab: Notes/Report: [facility] ,Lactate/Lactic Acid1.20.4-2.0 mmol/LPerforming Lab:see note - [facility] LBAMMONIA Reviewed date:10/26/2024 03:26:04 PM Interpretation: Performing Lab: Notes/Report: [facility] ,Ammonia<1011-32 umol/LPerforming Lab:see noteML - [facility] LB Anaerobe Identification Only Reviewed date:10/30/2024 08:41:11 PM Interpretation: Performing Lab: Notes/Report: [facility] ,Anaerobe Identification OnlySee Below For Report Anaerobe Identification Only WILL FOLLOW Anaerobe Identification OnlySpecimen has been received and testing has been initiated. Anaerobe Identification Only WILL FOLLOW Anaerobe Identification Only Anaerobe Identification Only WILL FOLLOW Anaerobe Identification OnlySpecimen has been received and testing has been initiated. Anaerobe Identification Only WILL FOLLOW Anaerobe Identification Only Anaerobe Identification Only WILL FOLLOW Anaerobe Identification OnlyNo anaerobes recovered. 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 Aerobe ID + Suscept O:CORYTB Isolated Aerobe ID + SusceptOrganism: Corynebacterium tuberculostear : Aerobe ID + Suscept O:CORYTB Isolated Aerobe ID + Suscept*ABNORMAL* Aerobe ID + Suscept O:CORYTB Isolated Aerobe ID + SusceptReceived anaerobic bottle only. Aerobe ID + Suscept O:CORYTB Isolated Aerobe ID + SusceptSusceptibility not normally performed on this organism. Aerobe ID + Suscept O:CORYTB Isolated Aerobe ID + SusceptCorynebacterium tuberculostear Aerobe ID + Suscept O:CORYTB Isolated Aerobe ID + SusceptSee Below For Report Aerobe ID + Suscept O:CORYTB Isolated Performing Lab:see noteLC - [facility] LBBlood Culture 2 Reviewed date:10/29/2024 06:02:27 PM Interpretation: Performing Lab: Notes/Report: [facility] ,Blood Culture 2See Below For Report Blood Culture 2 NG5D NO GROWTH AT 5 DAYS.^NO GROWTH AT 5 DAYS. Performing Lab:see noteML - [facility] LBPROF 14(COMP METB) Reviewed date:10/26/2024 03:26:04 PM Interpretation: Performing Lab: Notes/Report: [facility] ,Sefxky408768-890 mmol/LPotassium3.53.5-5.1 mmol/WKjdbmafn87908-362 mmol/LCarbon Jtejuea02.421.0-32.0 mmol/LAnion Gap16.1Gzoacpi74255-061 mg/dLBlood Urea Apvrapgq50.07.0-18.0 mg/dLCreatinine1.140.55-1.02 mg/dLEstimated GFR ( Zxalmep57>=60 mL/min/1.73m 2Estimated GFR (Non- Ame46>=60 mL/min/1.73m 2 BUN Creatinine Ratio14.3Dlnhest98.88.5-10.1 mg/dLBilirubin Total0.40.2-1.0 mg/dL Aspartate Amino Xxgfwycpclm9403-11 U/LAlanine Mgtnqdsvyggydosr2571-55 U/L Alkaline Qjcfbcpyqit01658-852 U/LTotal Protein6.46.4-8.2 g/dLAlbumin Level3.5 3.4-5.0 g/dLGlobulin2.9Albumin Globulin Ratio1.2Performing Lab:see noteML - [facility] LBCBC AUTO DIFF Reviewed date:10/26/2024 03:26:04 PM Interpretation: Performing Lab: Notes/Report: [facility] ,White Blood Count9.04.0-11.0 10 3/uLRed Blood Count3.864.20-5.40 10 6/uL Awjywptvbo02.212.0-16.0 g/rJEolypiskaf61.136.0-48.0 %Mean Corpuscular Gbkwzu56.1 81.0-99.0 fLMean Corpuscular Cfvpahjldo85.626.7-34.0 pgMean Corpuscular HGB Conc 32.929.9-35.2 g/dLRed Cell Distribution Width15.911.0-15.0 %Platelet Rzanl155 150-450 10 3/uLMean Platelet Kufygu62.09.5-13.5 fLNeutrophils Percent Auto75.1 43.0-75.0 %Lymphocytes Percent Auto11.020.5-60.0 %Monocytes Percent Auto13.41.7- 12.0 %Eosinophils Percent Auto0.00.9-7.0 %Basophils Percent Auto0.40.2-2.0 % Immature Granulocytes Pct Auto0.10.0-0.5 %Neutrophils Absolute Auto6.71.4-6.5 10 3/uLLymphocytes Absolute Auto1.01.2-3.8 10 3/uLMonocytes Absolute Auto1.20.3-0.8 10 3/uLEosinophils Absolute Auto0.00.0-0.7 10 3/uLBasophils Absolute Auto0.00.0- 0.1 10 3/uLImmature Granulocytes Abs Auto0.010.00-0.03 10 3/uLPerforming Lab:see noteML - [facility] LBLIVER PROFILE Reviewed date:10/23/2024 02:24:58 PM Interpretation: Performing Lab: Notes/Report: [facility] ,Bilirubin Total0.40.2-1.0 mg/dLBilirubin Direct0.10.0-0.2 mg/dLAspartate Amino Pmpngikhusr4426-83 U/LAlanine Eaknuebbugncmkrm780-94 U/LAlkaline Xnpesmyqnal156 46-116 U/LTotal Protein6.36.4-8.2 g/dLAlbumin Level3.53.4-5.0 g/dLGlobulin2.8 Albumin Globulin Ratio1.3Performing Lab:see noteML - [facility] LB PROF 14(COMP METB) Reviewed date:10/23/2024 02:24:58 PM Interpretation: Performing Lab: Notes/Report: [facility] ,Admeyz924446-597 mmol/LPotassium4.33.5-5.1 mmol/XKbgwimto83695-710 mmol/LCarbon Yntmsja85.421.0-32.0 mmol/LAnion Gap13.9Hjjomim01157-103 mg/dLBlood Urea Gvmrmnmb60.07.0-18.0 mg/dLCreatinine1.080.55-1.02 mg/dLEstimated GFR ( Rnwprkd19>=60 mL/min/1.73m 2Estimated GFR (Non- Ame49>=60 mL/min/1.73m 2 BUN Creatinine Ratio25.7Kofmifw65.58.5-10.1 mg/dLBilirubin Total0.50.2-1.0 mg/dL Aspartate Amino Imzgqauxdpk5918-52 U/LAlanine Avxoodquveqdhpce414-86 U/LAlkaline Kzfrkcvzows56730-152 U/LTotal Protein6.86.4-8.2 g/dLAlbumin Level3.93.4-5.0 g/dL Globulin2.9Albumin Globulin Ratio1.3Performing Lab:see noteML - [facility] LBLIPASE Reviewed date:10/23/2024 02:24:58 PM Interpretation: Performing Lab: Notes/Report: [facility] ,Kjttzr30.016.0-77.0 U/LPerforming Lab:see noteML - [facility] LB LACTATE or LACTIC ACID Reviewed date:10/23/2024 02:24:58 PM Interpretation: Performing Lab: Notes/Report: [facility] ,Lactate/Lactic Acid1.50.4-2.0 mmol/LPerforming Lab:see noteML - [facility] LBCBC AUTO DIFF Reviewed date:10/23/2024 02:24:58 PM Interpretation: Performing Lab: Notes/Report: [facility] ,White Blood Count9.14.0-11.0 10 3/uLRed Blood Count3.904.20-5.40 10 6/uL Seuvmrjsls09.212.0-16.0 g/zCZtkpvgddjr52.136.0-48.0 %Mean Corpuscular Nacyrh41.1 81.0-99.0 fLMean Corpuscular Uyxwnlptnq64.326.7-34.0 pgMean Corpuscular HGB Conc 32.929.9-35.2 g/dLRed Cell Distribution Width15.611.0-15.0 %Platelet Tbiic073 150-450 10 3/uLMean Platelet Lsjdce15.29.5-13.5 fLNeutrophils Percent Auto65.3 43.0-75.0 %Lymphocytes Percent Auto17.920.5-60.0 %Monocytes Percent Auto12.51.7- 12.0 %Eosinophils Percent Auto2.70.9-7.0 %Basophils Percent Auto1.30.2-2.0 % Immature Granulocytes Pct Auto0.30.0-0.5 %Neutrophils Absolute Auto6.01.4-6.5 10 3/uLLymphocytes Absolute Auto1.61.2-3.8 10 3/uLMonocytes Absolute Auto1.10.3-0.8 10 3/uLEosinophils Absolute Auto0.30.0-0.7 10 3/uLBasophils Absolute Auto0.10.0- 0.1 10 3/uLImmature Granulocytes Abs Auto0.030.00-0.03 10 3/uLPerforming Lab:see noteML - [facility] LBUrine Culture - [facility] Reviewed date:08/14/2024 09:14:57 PM Interpretation: Performing Lab: Notes/Report: [facility] ,Urine Culture - FRMCSee Below For Report Urine Culture - [facility] Pending - Specimen sent to [facility]^Pending - Specimen sent to [facility] Performing Lab:see noteML - [facility] LBMAGNESIUM Reviewed date:08/13/2024 09:36:29 PM Interpretation: Performing Lab: Notes/Report: [facility] ,Magnesium2.01.8-2.4 mg/dLPerforming Lab:see noteML - [facility] LB LACTATE or LACTIC ACID Reviewed date:08/13/2024 09:36:29 PM Interpretation: Performing Lab: Notes/Report: [facility] ,Lactate/Lactic Acid1.20.4-2.0 mmol/LPerforming Lab:see noteML - [facility] LBBNP Reviewed date:08/13/2024 09:36:29 PM Interpretation: Performing Lab: Notes/Report: [facility] ,NT Pro B Type Natriuretic Fpur4364.0<=1800.0 pg/mLPerforming Lab:see noteML - [facility] LBURINE MICROSCOPIC ONLY Reviewed date:08/06/2024 08:35:07 PM Interpretation: Performing Lab: Notes/Report: [facility] ,WBC Urine2-5NONE SEEN #/HPFRBC Lfjxi5-839-9 #/HPFBacteria UrineTRACENONE SEEN #/HPFMucus UrineNONE SEENNONE SEENSquamous Epithelial Cell UrineNONE SEEN NONE/RARE #/LPFCrystals Seen?None SeenNone Seen #/HPFCast Seen?NONE SEENNONE SEEN #/LPFUrine Culture IndicatedYES-FRMCPerforming Lab:see noteML - [facility] LBINFLUENZA A AND B AG Reviewed date:08/06/2024 08:35:07 PM Interpretation: Performing Lab: Notes/Report: [facility] ,Influenza Virus A AntigenNegative Negative for Flu A protein antigen. Infection due to Flu A cannot be ruled out. Flu A antigen in the sample may be below the detection limit of the test. Influenza Virus B AntigenNegative Negative for Flu B protein antigen. Infection due to Flu B cannot be ruled out. Flu B antigen in the sample may be below the detection limit of the test. Performing Lab:see noteML - [facility] LBUrine Culture - [facility] Reviewed date:07/30/2024 07:22:07 PM Interpretation: Performing Lab: Notes/Report: [facility] ,Urine Culture - [facility]MCSee Below For Report Urine Culture - [facility] <9,000 colonies/ml mixed Urine Culture - FRMCbacterial skin contaminants Urine Culture - [facility] <9,000 colonies/ml mixed Urine Culture - [facility]2 Days Urine Culture - [facility] <9,000 colonies/ml mixed Urine Culture - [facility] Urine Culture - [facility] <9,000 colonies/ml mixed Urine Culture - [facility]MCTesting [facility] Urine Culture - [facility] <9,000 colonies/ml mixed Urine Culture - [id number] [place] [address] Urine Culture - [facility] <9,000 colonies/ml mixed Performing Lab:see noteML - [facility] LBUA RANDOM W or MICROSCOPIC Reviewed date:07/24/2024 08:09:42 PM Interpretation: Performing Lab: Notes/Report: [facility] ,Color UrineLT. YELLOWYELLOWClarity UrineCLEARCLEARSpecific [place] Urine1.015 1.005-1.025pH Urine6.55.0-9.0Protein UrineTRACENEG/TRACE mg/dLGlucose Urine UA NEGATIVENEGATIVE mg/dLBilirubin UrineNEGATIVENEGATIVEKetones UrineNEGATIVE NEGATIVE mg/dLBlood UrineLARGENEGATIVENitrite UrineNEGATIVENEGATIVEUrobilinogen Urine0.20.2-1.0 EU/dLLeukocyte Esterase UrineMODERATENEGATIVEWBC Urine5-10NONE SEEN #/HPFRBC Yaqsg60-961-8 #/HPFBacteria UrineTRACENONE SEEN #/HPFMucus Urine NONE SEENNONE SEENSquamous Epithelial Cell UrineFEWNONE/RARE #/LPFCrystals Seen? None SeenNone Seen #/HPFCast Seen?SEENNONE SEEN #/LPFHyaline Casts UrineFEWUrine Culture IndicatedALREADY ORDEREDPerforming Lab:see noteML - [facility] LBXR chest 1V Reviewed date:04/09/2024 06:36:59 PM Interpretation: Performing Lab: Notes/Report: Source Facility: [facility]-[address] [place] [address] [place] [address] XRay Report Signed Patient: JUDITH LAND MR#: [id number] : 1945 Acct:[id number] Age/Sex: 79 / F ADM Date: 04/09/24 Loc: ER Attending Dr: Ordering Physician: David Marsh Date of Service: 04/09/24 Procedure(s): XR chest 1V Accession Number(s): [id number] cc: Rodrick Leary M.D.; David Marsh [facility] [place] [id number] Patient Name: JUDITH LAND MRN: [id number] date: 1945 Sex: F Assigned Patient Location: ER Current Patient Location: ER Accession/Order Number: [id number] Exam Date: 04/09/2024 08:36 Report Date: 04/09/2024 09:02 At the request of: DAVID MARSH Procedure: XR chest 1V EXAMINATION: XR chest 1V HISTORY: Weakness COMPARISON: XR chest 2023 FINDINGS: LUNGS: Hyperexpanded lungs. No significant pulmonary parenchymal abnormalities. VASCULATURE: No increased pulmonary vasculature. PLEURA: No pneumothorax, effusion, or pleural thickening. CARDIAC: No cardiomegaly or cardiac silhouette abnormality. MEDIASTINUM: No visible mass or adenopathy. BONES: No fracture or visible bone lesion. OTHER: Negative. XR/XR chest 1V IMPRESSION: 1. Hyperexpanded lungs suggestive of COPD. 2. No acute cardiopulmonary process. Electronically authenticated by: JAMARI EVANS Date: 04/09/2024 09:02 Dictated By: Jamari Evans M.D. Signed By: 04/09/24903 DD/ 1 TD/TT: Sander Wooden Pencils:URINE MICROSCOPIC ONLY Reviewed date:04/09/2024 06:36:59 PM Interpretation: Performing Lab: Notes/Report: [facility] ,WBC Pkxid70-39DPIG SEEN #/HPFRBC Urine0-20-2 #/HPFBacteria UrineTRACENONE SEEN #/HPFMucus UrineNONE SEENNONE SEENSquamous Epithelial Cell UrineRARENONE/RARE #/LPFCrystals Seen?None SeenNone Seen #/HPFCast Seen?NONE SEENNONE SEEN #/LPF Urine Culture IndicatedYESPerforming Lab:see noteML - [facility] LBUA (CLEAN or CATCH) H[employer]CHO[employer] TE[employer]ER or MICRO IF IND. Reviewed date:04/09/2024 06:36:59 PM Interpretation: Performing Lab: Notes/Report: [facility] ,Color UrineLT. YELLOWYELLOWClarity UrineCLEARCLEARSpecific [place] Urine1.010 1.005-1.025pH Urine6.55.0-9.0Protein UrineNEGATIVENEG/TRACE mg/dLGlucose Urine UANEGATIVENEGATIVE mg/dLBilirubin UrineNEGATIVENEGATIVEKetones UrineNEGATIVE NEGATIVE mg/dLBlood UrineNEGATIVENEGATIVENitrite UrineNEGATIVENEGATIVE Urobilinogen Urine0.20.2-1.0 EU/dLLeukocyte Esterase UrineLARGENEGATIVEUrine Microscopic IndicatedYESPerforming Lab:see noteML - [facility] LBCBC AUTO DIFF Reviewed date:04/09/2024 06:36:59 PM Interpretation: Performing Lab: Notes/Report: [facility] ,White Blood Count11.04.0-11.0 10 3/uLRed Blood Count4.554.20-5.40 10 6/uL Wymepubtli16.312.0-16.0 g/gUVudtcysusx13.736.0-48.0 %Mean Corpuscular Dbomyn03.8 81.0-99.0 fLMean Corpuscular Uewcavidnk80.426.7-34.0 pgMean Corpuscular HGB Conc 33.529.9-35.2 g/dLRed Cell Distribution Width14.511.0-15.0 %Platelet Kuhdo080 150-450 10 3/uLMean Platelet Wjkpwa05.49.5-13.5 fLNeutrophils Percent Auto64.0 43.0-75.0 %Lymphocytes Percent Auto20.720.5-60.0 %Monocytes Percent Auto9.61.7- 12.0 %Eosinophils Percent Auto4.70.9-7.0 %Basophils Percent Auto0.80.2-2.0 % Immature Granulocytes Pct Auto0.20.0-0.5 %Neutrophils Absolute Auto7.01.4-6.5 10 3/uLLymphocytes Absolute Auto2.31.2-3.8 10 3/uLMonocytes Absolute Auto1.10.3-0.8 10 3/uLEosinophils Absolute Auto0.50.0-0.7 10 3/uLBasophils Absolute Auto0.10.0- 0.1 10 3/uLImmature Granulocytes Abs Auto0.020.00-0.03 10 3/uLPerforming Lab:see noteML - [facility] LBPROF CHEM 8 (BAS METB) Reviewed date:10/28/2024 08:43:52 PM Interpretation: Performing Lab: Notes/Report: [facility] ,Bgmbcf484326-309 mmol/LPotassium3.53.5-5.1 mmol/WCeuqjrij04603-063 mmol/LCarbon Kmtrycv28.021.0-32.0 mmol/LAnion Gap11.6Vqrizti52952-407 mg/dLBlood Urea Fkzmetir99.07.0-18.0 mg/dLCreatinine1.950.55-1.02 mg/dLEstimated GFR ( Ghfoxlf36>=60 mL/min/1.73m 2Estimated GFR (Non- Ame25>=60 mL/min/1.73m 2 BUN Creatinine Ratio27.2Dvssxdn22.08.5-10.1 mg/dLPerforming Lab:see noteML - [facility] LB Reason For Referral Reason Balance therapy Diagnosis 1 Ataxia (R27.0) Referral Organization [facility] Referring Provider First Name Austin Referring Provider Last Name [facility] Referring Provider Speciality Family Med icine Referred Provider [facility], Physical Therap y Referred Provider Specialty Physical Med icine and Rehabilitation Referral Priority Routine Diagnosis 1 Wrist fracture (S62. 109A) Referral Organization [facility] Referring Provider First Name Austin Referring Provider Last Name [place] Referring Provider Speciality Family Med icine Referred Provider [facility], Home [facility] Referred Provider Specialty Home Health Agency Referral Priority Routine Diagnosis 1 Parkinsonism, unspec ified (G20.C) Referral Organization [facility] Referring Provider First Name Austin Referring Provider Last Name [place] [facility] Referred Provider [facility], [facility] Referred Provider Specialty Home Health Agency Referral Priority Routine Medications Medication SIG (Take, Route, Frequency, Duration) Notes Start Date End Date Status Sucralfate 1 GM 1 tablet on an empty stomach Ora lly qid; Duration: 7 days 4ActiveCentrum Silver 50+Women -as directed Orally once dailyActive Acetaminophen 500 MG1 tablet as needed Orally every 8 hrs5ActiveCalcium 600+D Plus Minerals 600-400 MG-UNIT1 tablet Orally Once a dayActiveVitamin C ActiveZinc Gluconate 50 MG1 tablet Orally Once a day5ActivehydrALAZINE HCl 25 MG1 tablet with food Orally Twice a day; Duration: 30 days09/11/2024 ActivePotassium Chloride Kaitlin ER 20 MEQTAKE 1 TABLET BY MOUTH TWICE A DAY WITH FOOD; Duration: 90ActiveHYDROcodone-Acetaminophen 5-325 MG 1 tablet as needed Orally q4h; Duration: 7 days S62.109A 5ActiveALPRAZolam 1 MGTake 1.5 tablets Orally dx F51.01 at bedtime; Duration: 30 leaeEYV82/18/2025ActiveProtonix 40 MG1 tablet Orally bidActive Rasagiline Mesylate 1 MGTAKE 1 TABLET BY MOUTH EVERY DAY Oral; Duration: 90 Days ActiveAmantadine HCl 100 MG1 capsule Orally three times a day5Active Lutein-Zeaxanthin 25-5 MGas directed Yowamt505ActiveamLODIPine Besylate 5 MG1 tablet Orally Once a day; Duration: 90 daysActiverOPINIRole HCl 0.5 MG1 tablet Orally Once a day at bedtime; Duration: 30 daysActiveAspirin 81 81 MG1 tablet Orally Once a dayActiveSinemet 10-100 MG1 tablet Orally TIDActive Immunizations Vaccine Route Administration Date Status Comme nts Flu, Fluad (58081) 65 yrs + High Dose Seasonal (1323-9280) Unknown 02/21/2018 Administered Flu, Fluad (60763) 65 yrs and older, single-dose syringe (8580-8327)Unknown 04/08/2019AdministeredFlu, Fluad (96252) 65 yrs and older, single-dose syringe (4937-9370)Xmhpdrl2903/18/2020AdministeredFlu, Fluad (80782) 65 yrs and older, single-dose syringe (3338-1114)Wgowemx0203/14/2021dministeredPneumococcal (Pneumovax 23)Anrdnoc2310/29/2019Administered Social History Tobacco Use: Social History Observation Description Date Details (start date - stop date) Former Smoker 06/11/1960 - 06/11/2017 Tobacco Use/Smoking Question Answer Notes Patient is a former smoker When did you start smoking?06/11/1960When did you stop smoking?06/11/2017How long has it been since you last smoked?5-10 yearsAdditional Findings: Tobacco Vei-NhmmVh-pmlwh cigarette smoker (1-9/day)Alcohol Screen (Audit-C) Question Answer Notes Did you have a drink containing alcohol in the p ast year? No Uytjuo1ScgyrtgusszxbqZdtjqwkvNIHRQ-R (Standard) Question Answer Notes Did you have a drink containing alcohol in the p ast year? No Hwotbw5WgcexwkhefkhiuDhrzbwlm Problems Problem Type SNOMED Code ICD Code Onset Dates Problem Status W/U Status Risk Notes Problem Hypokalemia (57107473) Hypokalemia (E87.6 ) ActiveconfirmedProblemGeneralized anxiety disorder (69480275)Generalized anxiety disorder (F41.1)ActiveconfirmedProblemParkinson's disease (82207713)Parkinson's disease (G20)ActiveconfirmedProblemRestless legs syndrome (61082182)Restless legs syndrome (G25.81)ActiveconfirmedProblemMetabolic encephalopathy (95307355) Metabolic encephalopathy (G93.41)ActiveconfirmedProblemAcute exacerbation of chronic obstructive airways disease (778045791)Chronic obstructive pulmonary disease with (acute) exacerbation (J44.1)ActiveconfirmedProblemDysuria (00776961)Dysuria (R30.0)ActiveconfirmedProblemWeakness (81616453)Weakness (R53.1)ActiveconfirmedProblemHistory of cerebrovascular accident without residual deficits (139501487)Personal history of transient ischemic attack (TIA), and cerebral infarction without residual deficits (Z86.73)Activeconfirmed ProblemAtaxia (70941429)Ataxia (R27.0)ActiveconfirmedProblemHypertension (58093350)Hypertension (I10)ActiveconfirmedProblemCongestive heart failure (34267505)CHF (congestive heart failure) (I50.9)ActiveconfirmedProblem Gastroesophageal reflux disease (698123714)GERD (gastroesophageal reflux disease) (K21.9)ActiveconfirmedProblemParkinson disease (30190586)Parkinson disease (G20)ActiveconfirmedProblemEdema (49684095)Edema (R60.9)Activeconfirmed ProblemInsomnia (907414094)Insomnia (G47.00)ActiveconfirmedProblemGeneralized anxiety disorder (55940266)JONATHAN (generalized anxiety disorder) (F41.1)Active confirmedProblemRestless legs (74888469)RLS (restless legs syndrome) (G25.81) ActiveconfirmedProblemNephrolithiasis (99079252)Nephrolithiasis (N20.0)Active confirmedProblemGastritis (7287608)Gastritis (K29.70)ActiveconfirmedProblem Lumbar spondylosis (085127828)Lumbar spondylosis (M47.816)ActiveconfirmedProblem Closed fracture of carpal bone (5956241)Wrist fracture (S62.109A)Activeconfirmed ProblemAcute gastroenteritis (49014515)Acute gastroenteritis (K52.9)Active confirmedProblemIntention tremor (87959317)Intention tremor (G25.2)Active confirmedProblemChronic obstructive pulmonary disease (52528610)Advanced COPD (J44.9)ActiveconfirmedProblemAcute urinary tract infection (306297800)Acute UTI (N39.0)ActiveconfirmedProblemIdiopathic insomnia (0860071)Idiopathic insomnia (F51.01)ActiveconfirmedProblemEssential hypertension (15068158)BP (high blood pressure) (I10)ActiveconfirmedProblemPure hypercholesterolemia (582188964)Pure hypercholesterolemia, unspecified (E78.00)ActiveconfirmedProblemParkinson's disease (95791642)Parkinson''s disease (G20)ActiveconfirmedProblemTroponin I above reference range (finding) (062857402)Elevated troponin I level (R77.8) ActiveconfirmedProblemParkinson's disease with dyskinesia, with fluctuations (G20.B2)Activeconfirmed Vital Signs Blood pressure diastolic 82 mm Hg 09/11/2024 Izwgdo76 in09/11/2024lood pressure rqviclkt285 mm Hg09/11/20243490Sodzig739.0 lbs 09/11/2024BMI16.14 kg/m209/11/2024 Encounters Encounter Location Date Provider Diagnosis [facility] [address] [place] [address] 04/14/2024 Austin Hoy UTI (urinary tract infection), uncomplicated N39.0 and Dysuria R30.0 [facility] [address] [place] [address] 05/22/2024 Austin Hoy Gastritis K29.70 and Ataxia R27.[address] [address] 07/22/2024 Austin Hoy Edema R60.[address] [address] 08/07/2024 Austin Hoy Hypertension I10 ; Intention tremor G25.2 and Parkinson''s disease G20 [facility] [address] [place] [address] 08/19/2024 Austin Hoy Acute UTI N39.0 [address] [place] [address] 09/11/2024 Austin Hoy Chronic obstructive pulmonary disease with (acute) exacerbation J44.1 and Hypertension I10 [facility] [address] [place] [address] 08/01/2024 Austin Hoy Parkinson's disease with dyskinesia, with fluctuations G20.B2 and Wrist fracture S62.109A [facility] [address] [place] [address] 10/29/2024 Austin Hoy [facility] [place] [address] [facility] [place] [address]/10/2025Doug [facility] [place] [address]/12/2024Doug [facility] [place] [address]/01/2025Doug [facility] [place] [address]/04/2025Doug [facility] [place] [address]/ [facility] [place] [address]/07/2024Doug [facility] [place] [address]/Doug [facility] [place] [address]/07/2024Doug [facility] [place] [address]/10/2024Doug [facility] [place] [address]/11/2024 [facility] [place] [address]/Doug AniketyMEGAN (urinary tract infection), uncomplicated N39.0 [facility] [place] [address] 09/04/2024Doug [facility] [place] [address]/12/2024Doug [facility] [place] [address]/Doug [facility] [place] [address]/Doug [facility] [place] [address]/Doug HoyWrist fracture S62.109ABV[facility]ado [facility] [place] [address]/Doug [facility] [facility] [place] [address]/Doug HoyParkinsonism, unspecified G20.[facility] [facility] [place] [address]/ [facility] [facility] [place] [address] 06/16/2024Doug [facility] [facility] [place] [address]/08/2024Doug [facility] [facility] [place] [address]/03/2025Doug [facility] [facility] [place] [address]/04/2025Doug [facility] [facility] [place] [address]/05/2025Doug HoyUTI (urinary tract infection), uncomplicated N39.0[facility] [address] [facility] [place] [address]/05/2025Doug [facility] [facility] [place] [address]/oug Hoy [facility] [facility] [place] [address] 05/02/[address] En[facility] Date Diagnosis (ICD Code) Assessment Notes Treatment Notes Treatment Clinical Notes Section Notes 04/14/2024 UTI (urinary tract infection), u ncomplicated (ICD-10 - N39.0) Drink plenty of water. Avoid drinks like coffee, alcohol and soft frinks, as these can irritate your bladder and aggravate your frequent or urgent need to urinate. Apply a warm heating pad to your abdomen to minimize bladder pressure or discomfort. You have been prescribed antibiotics for a urinarytract infection. Antibiotics may bother your stomach, so try taking them with a light meal (unless instructed otherwise by your pharmacist). It is important to take them until they are finished. You can use fnmj-bfp-wfckrcy acetaminophen or ibuprofen if needed for pain. You should follow up with your Primary Care Physician or return to clinic if not improving in the next 3-5 days.05/22/2024 Ataxia (ICD-10 - R27.0)05/22/2024Gastritis (ICD-10 - K29.70)needs c t abd and pelvis if ont nvleqj9507/22/2024Edema (ICD-10 - R60.9)08/01/2024Wrist fracture (ICD-10 - S62.109A)08/01/2024Parkinson's disease with dyskinesia, with fluctuations (ICD-10 - G20.B2)Needs home health for Eval and jody nd PT/OT 08/07/2024Hypertension (ICD-10 - I10)08/07/2024Intention tremor (ICD-10 - G25.2) 5Acute UTI (ICD-10 - N39.0)09/11/2024hronic obstructive pulmonary disease with (acute) exacerbation (ICD-10 - J44.1)09/11/2024Hypertension (ICD-10 - I10)07/23/2024UTI (urinary tract infection), uncomplicated (ICD-10 - N39.0) 08/01/2024Wrist fracture (ICD-10 - S62.109A)08/07/2024Parkinsonism, unspecified (ICD-10 - G20.C)08/25/2024UTI (urinary tract infection), uncomplicated (ICD-10 - N39.0)08/07/2024Parkinson''s disease (ICD-10 - G20)skipping kg4sqffuc - if no change -sty off and try dec dose of the ga efbchazv55/04/2024Dysuria (ICD-10 - R30.0) Plan Of Treatment Pending Test Test Name Order Date UA (URINALYSIS, COMPLETE) 07/23/2024 Urinalysis Microscopic 08/19/2024 High Sensitivity Troponin 07/22/2024 CULTURE URINE 07/23/2024 CULTURE URINE 08/19/2024 THYROID PROFILE WITH TSH 07/22/2024 THYROID PANEL (T4/TSH/FREE T3) 3 Insurance Providers Payer Name Payer Address Payer Phone Subscriber Number Group Number Insured Name Patient Relationship to Insured Coverage Start Date Coverage End Date [place] [address] [place] [address] [id number] Miah Landf - patient is the [id number] [address] [address]ITY[address] [address] [place], [place] [id number] Judith Kraus Self - patient is the insured Medical (General) History Medical History History ICD Code Elevated troponin I level R77.8 Bronchitis J40 Idiopathic insomnia F51.01 Parkinson''s disease G20 Ataxia R27.0 Pneumonia due to Coronavirus disease 201 9 J12.82 Pharyngitis J02.9 Generalized anxiety disorder F41.1 Nephrolithiasis N20.0 Cerumen impaction H61.20 Intention tremor G25.2 Acute cystitis with hematuria N30.01 Hypokalemia E87.6 Chronic obstructive pulmonary disease wi th (acute) exacerbation J44.1 Acute bronchitis J20.9 Insomnia G47.00 Pure hypercholesterolemia, unspecified E 78.00 Hypertension I10 Surgical History Surgery Date(Month/Year) Splenectomy Hernia repairCystoscopy with Dr. Conn02/01/20Total HysterectomyRight wrist [id number] History Reason Date(Month/Year) UTI/ Fall 08/2024 hernia repair 10/02 Chest Pain/ Palpiations 02/2023
--- NOTE | 2025-03-31 13:41 | CT_ITS ---
The [address] [address] Patient Name: JUDITH KHAN MRN: [id number] date: 1945 Sex: F Assigned Patient Location: CT Current Patient Location: CT Accession/Order Number: [id number] Exam Date: 03/31/2025 13:45 Report Date: 03/31/2025 15:47 At the request of: KAYE GOFF Procedure: CT chest wo con CT CHEST WITHOUT CONTRAST CLINICAL DATA: History of COPD and failure. Former smoker COMPARISON: 10/28/2024 Spiral axial unenhanced images were obtained through the chest. Images were reviewed using both narrow and wide window settings. This CT exam was performed using one or more following dose reduction techniques: Automated exposure control, adjustment of the mA and/or kV according to patient size, or use of iterative reconstruction technique. The heart is within normal limits for size. No pericardial effusion is seen. There is coronary artery disease. There is atherosclerotic plaque at the aorta and imaged great vessels. No aortic aneurysm is visualized. There are similar small lymph nodes. The thoracic esophagus is no longer dilated. The thyroid lobes are mildly heterogeneous. Mild endplate spurring is seen at the spine. There is advanced obstructive lung disease with airspace lucencies and subpleural blebs. There is minor residual atelectasis and/or scarring. There is no current consolidation or pleural effusion. No pneumothorax is seen. There is calcification at the dome of the left hemidiaphragm. There may be tiny intrapulmonary lymph node with the major fissure on the left, also seen on the prior. Limited imaging through the upper abdomen shows additional atherosclerotic disease and ectasia of the imaged aorta. There is potential bilateral nephrolithiasis. There are also left renal hypodensities suggesting cysts. CT/CT chest wo con IMPRESSION: ADVANCED OBSTRUCTIVE LUNG DISEASE WITH MINOR RESIDUAL SCARRING AND/OR ATELECTASIS. MINOR CALCIFIED PLAQUE AT THE DOME OF THE LEFT HEMIDIAPHRAGM. INCIDENTAL SUSPECTED NEPHROLITHIASIS AND LEFT RENAL CYSTS. Impression dictated by: Judith Hoff M.D. 03/31/2025 3:47 PM Dictation Location: [place] [id number] Electronically authenticated by: [id number] Y Date: 03/31/2025 15:47
--- OUTSIDE RECORDS SUMMARY | 2025-03-31 13:44 | XMS_ITS | CCD ---
Author Organization [facility] CliniSymd Care Team Providers Care Supervisor Finishing Room Name Role Phone SELF, REFERRED Unavailable Unavailable SELF, REFERRED Unavailable Unavailable BRAMOS, ATHANASIOS Unavailable Unavailable SUPA BRANCH Unavailable Unavailable RI Unavailable Unavailable BRAMOS, ATHANASIOS Unavailable Unavailable RI Unavailable Unavailable SUPA BRANCH Unavailable Unavailable PHYSICIAN, [...] Unavailable YULISSA TALBERT Consulting Unavailable SUPA LERMA Unavailable SHAIKH Zoltan TOM Consulting Unavailable SUPA DEAN Consulting Unavailable FLAQUITA ., DR MENSAH Primary Care Unavailable ZIEBER, DR RAMIRO Gates Consulting Unavailable ALICIA CHRISTJUNIOR Attending Unavailable YURI RAOER Admitting Unavailable BALJEET RAO Consulting Unavailable MALATHIY [...] Primary Care Provider DIXIE Gill Attending Provider [phone] Kavon Sams Primary Care Physician Rod Yu Unavailable Unavailable Kavon Sams MD Unavailable Kavon Sams Md Primary Care Provider Kavon Sams Md Primary Care Provider Andrae HERRERA, Andrius Pham Attending Unavailable Giedraruma HERRERA, Andrius Vyterlinda Attending Unavailable Giedraruma HERRERA, Andrius Vytautchuck Attending Unavailable Andrae HERRERA, Andrius Vytautchuck Attending Unavailable Andrae HERRERA, Andrius Pham Attending Unavailable Kavon Sams MD Primary Care Provider Kavon Sams MD Attending Provider Sae Morfin Attending Unavailable Sae Morfin Attending Unavailable Augie Sidhu Attending Unavailable Mila Mao Unavailable Unavailable Christopher Sales Attending Unavailable Christopher Sales Attending Unavailable Meghan Ramachandran DO Attending Provider [phone] Pocos, Supa Davis Attending Unavailable Pocos, Supa Davis Referring Unavailable Pocmalika, Supa Davis Admitting Unavailable Demarco Beaver Attending Unavailable Kavon Sams MD Attending Provider Meghan Ramachandran DO Attending Provider Damaso Charlton DO Emergency Provider Kavon Sams MD Primary Care Provider [phone] Lauro Garvey MD Admit Provider Lauro Garvey MD Attending Provider [phone] Mariajose Alfred MD Attending Provider Mago Quintanilla MD Other Provider Ramsey Monroe MD Other Provider Didi Navarro APRN Other Provider Dani Bah DO Other Provider Pa Neil MD Other Provider Alfredo DO Tony Angelica Other Provider Jolynn HERRERA, Pa Wilkins Admit Provider Jolynn HERRERA, Pa Wilkins Attending Provider [phone] Harsh RN, Gloria Other Provider Unavailable Gila RN, Andra Other Provider Unavailable Shanice RN, Kimberlyn Other Provider Unavailable Hina RN, Tequila Other Provider Unavailable Alex RN, Yvrose Other Provider Unavailable Fermin HERRERA, Trish Other Provider Barney Quan DO Other Provider Clyde Avila MD Other Provider Connor Dumont DO Other Provider [phone] Luis HERRERA, Evelio Other Provider [phone] Faith Mccoy MD Other Provider Yulissa Shelby DO Other Provider [phone] Khalif HERRERA, Ludwin Other Provider Unavailable Baylee Ho APRN Other Provider Jose Raul HERRERA, Carie Other Provider Easton Galeano MD Other Provider Yanique Echevarria MD Other Provider Unavailable Bobby Luz MD Other Provider Yulissa Lemon DO Other Provider [phone] Paxton Sparks MD Other Provider Ulysses Valenzuela MD Other Provider Mumtaz PASTRY SOUS CHEF-C, Meghana Wallace Other Provider Sofia Warren APRN Other Provider Unavailable Ton Conti MD Other Provider Jordan Ortega MD Other Provider Abner Lazar MD Other Provider Giana HERRERA, Nikko Other Provider Unavailable Jair Mejia MD Other Provider Carolina Mccoy DO Other Provider Ty Garrido DO Other Provider Katarzyna Major APRN Other Provider Andrew Grace DO Other Provider Tima HERRERA, Mariajose Monae Other Provider Ebony Scott APRN Other Provider Sameera Diaz APRN Other Provider Amanda HERRERA, Haile Other Provider Unavailable Mare HERRERA, Lauro Wallace Other Provider Ambrosio DONiranjan Other Provider DilanAriseto kim DO Other Provider Cady HERRERA, Leonardo Mark Other Provider Addy Johns MD Other Provider [phone] Haydee Cornejo APRN Other Provider Unavailable Jared HERRERA, Joe Other Provider Hollis HERRERA, Awais Other Provider Santana HERRERA, Ramsey Saldana Other Provider Ludwin Barry MD Other Provider Bogdan Harris MD Other Provider Anaid Borrero APRN Other Provider Gi Liz APRN Other Provider Aliya RN, Lanny Other Provider Unavailable Alyson Park Other Provider Unavailable Joshua PhD, Jose R Other Provider [phone] Christina Vasquez DO Other Provider Ramiro Louise MD Other Provider Baljeet Rao DO Other Provider Haydee Farris APRN Other Provider Bridget PASTRY SOUS CHEF-C, Cathie Martin Other Provider Philip LOSS PREVENTION ANALYST-CATTLE DIPPER-C, Shaun Carrillo Other Provider Henrry Jon MD Other Provider Naye Lawson MD Other Provider Ricky PASTRY SOUS CHEF-C, Shayy Segovia Other Provider Unavail able Ashwin Carlos DO Other Provider Dale Alvarenga MD Other Provider Demarco Segal DO Other Provider [...] Provider Haydee Farris APRN Other Provider Bridget PASTRY SOUS CHEF-CCathie Other Provider Philip LOSS PREVENTION ANALYST-CATTLE DIPPER-C, Shaun Carrillo Other Provider Trish Christensen MD Other Provider Kavon Sams MD Primary Care Provider José Antonio Lerma DO Attending Provider [phone] José Antonio Lerma DO Other Provider Damaso Charlton DO Emergency Provider Linda Minaya MD Primary Care Provider Chang HERRERA, Jen Gates Emergency Provider Clint PASTRY SOUS CHEF-C, Daniela Almazan Primary Care Provider Nadine HERRERA, Faith Admit Provider Nadine HERRERA, Faith Attending Provider [phone] Nadine HERRERA, Faith Other Provider Radha SAM, Candida Other Provider Unavailable Haylee HERRERA, David Other Provider Harry HERRERA, Brian Navarro Attending Provider Harry HERRERA, Brian Navarro Other Provider Abiodun HERRERA, Katarzyna Other Provider Spring Chisholm APRN Other Provider Flaquita HERRERA, Kavon Monae Primary Care Provider [phone] Anders HERRERA, Lauro Meyer Primary Care Provider Clint VU, Daniela Almazan Unavailable WILIAN, CHERIE Attending Unavailable WILIAN, CHERIE Referring Unavailable WILIAN, CHERIE Attending Unavailable WILIAN, CHERIE Referring Unavailable WILIAN, CHERIE Attending Unavailable WILIAN, CHERIE Attending Unavailable WILIAN, CHERIE Referring Unavailable Baljeet Rao DO Attending Provider POCOS, SUPA Davis Attending Unavailable POCOS, SUPA Davis Referring Unavailable POCOS, SUPA Davis Referring Unavailable POCOS, SUPA Davis Referring Unavailable POCOS, SUPA Davis Attending Unavailable POCOS, SUPA Davis Referring Unavailable POCOS, SUPA Davis Attending Unavailable JACKSONSHAUN Attending Unavailable POCOS, SUPA Davis Referring Unavailable POCOS, SUPA Davis Referring Unavailable POCOS, SUPA Davis Attending Unavailable DANIELA JARAMILLO Attending Unavailable HEMJUDITH GARCIA Attending Unavailable BRIDGET, CATHIE Attending Unavailable BRIDGET, CATHIE Referring Unavailable BRIDGET, CATHIE Attending Unavailable DANIELA JARAMILLO Attending Unavailable SciAlyson andrade Other Provider Unavailable Christina Vasquez DO Other Provider Ramiro Louise MD Other Provider Baljeet Rao DO Other Provider Tony Fuentes DO Other Provider Haydee Farris APRN Other Provider Bridget PASTRY SOUS CHEF-C, Cathie Martin Other Provider Philip LOSS PREVENTION ANALYST-CATTLE DIPPER-C, Shaun Carrillo Other Provider [phone] Jacquelyn Segal APRN Attending Provider [phone] Henrry Roche MD Emergency Provider Tim BRIGGS, Connor Admit Provider Connor Dumont DO Attending Provider Yulissa Lemon DO Other Provider Yulissa Watt MD Attending Provider Yulissa Watt MD Other Provider Mago Quintanilla Consulting Unavailable Mariajose Alfred Attending Unavailable Kavon Sams Primary Care Unavailable Lauro Garvey Admitting Unavailable Ramsey Monroe Consulting Unavailable Didi Navarro Consulting Unavailable Dani Bah Jr Consulting UnavailPa Bowser Consulting UnavailTony Narvaez Consulting Unavailable Alyson Park Consulting Unavailable Kavon Sams Primary Care Unavailable Semasktylere, Faith Admitting Unavailable Siobhan Mccoya Attending Unavailable Christina Vasquez Consulting Unavailable Rmairo Louise Consulting Unavailable Baljeet Rao Consulting Unavailab Tony Coombs Consulting Unavailable Haydee Farris Consulting Unavailable Cathie Gill Consulting Unavailable Shaun Jackson Consulting Unavailable Pa Neil Admitting Unavaila Kavon Cunningham Primary Care Unavailable Gloria House Consulting Unavailable Ramsey Monroe Attending Unavailable Andra Uriostegui Consulting Unavailable Kimberlyn Prasad Consulting Unavailable Tequila Santamaria Consulting Unavailable Yvrose Johnson Consulting Unavailable Trish Christensen Consulting Unavailable Barney Quan Consulting Unavailable Clyde Avila Consulting Unavailable Maykel Dumontistopher Consulting UnavailEvelio Hair Consulting Unavailable Semaskiene, Faith Consulting Unavailable Yulissa Shelby Consulting Unavailable [...] Consulting Unavailable Ty Garrido Consulting Unavailable Katarzyna Maojr Consulting Unavailable Andrew Grace Consulting Unavailable Mariajose Alfred Consulting Unavailable Ebony Scott Consulting Unavailable Sameera Diaz Consulting Unavailable Haile Patel Consulting Unavailable Lauro Garvey Consulting Unavailable Niranjan Ambrosio Consulting Unavailable Aristeo Kong Consulting Unavailable Leonardo Lazar Consulting Unavailable Addy Johns Consulting Unava ilHaydee Blank Consulting Unavailable Joe Coleman Consulting Unavailable Awais Shafer Consulting Unavailable Ramsey Dillon Consulting Unavailable Ludwin Barry Consulting Unavailable Bogdan Harris Consulting Unavailable Anaid Borrero Consulting Unavailable Bolzan-Anitra Nicolettdavid Consulting Unavaila Lanny Donald Consulting Unavailable Alyson [...] II Consulting UnavailDemarco Mtz Consulting Unavailable Linda Minaya Primary Care Unavailable Damaso Charlton Attending Unavailable Damaso Charlton Admitting Unavailable Hoy, Kavon M Admitting Unavailable Kavon Sams M Attending Unavailable Meghan Ramachandran Admitting Unavailable Meghan Ramachandran Attending Unavailable Kavon Sams M Admitting Unavailable Kavon Sams M Attending Unavailable Kavon Sams M Attending Unavailable Flaquita, Kavon M Admitting Unavailable Jacquelyn Segal M Attending Unavailable Jacquelyn Segal Admitting Unavailable Alyson Park Consulting Unavailable NO FAMILY, PHYSICIAN Primary Care Unavailable Trish Christensen Admitting Unavailable Trish Christensen Attending Unavailable Jose R Lewis Consulting Unavailable Christina Vasquez Consulting Unavailable Ramiro Louise Consulting Unavailable Baljeet Rao Consulting Unavailab Tony Coombs Consulting Unavailable Haydee Farris Consulting Unavailable Cathie Gill Consulting Unavailable Shaun Jackson Consulting Unavailable Yulissa Watt Consulting Unavailable Daniela Jaramillo Primary Care Unavailable Connor Dumont Admitting UnavailYulissa Brice Attending Unavailable KRISTI, TONY Attending Unavailable KRISTI, TONY Attending Unavailable SOPHIE MORRIS Attending Unavailable Allergies Allergy ClassificationReported Allergen(s)Allergy TypeDate of OnsetReaction(s) FacilitySulfonamides (antibiotic) (1 source)Sulfonamides (Antibiotic); Translations: [sulfa drugs]Drug Allergy Unknown (qualifier value)[facility] (16 sources)Sulfonamides (Antibiotic); Translations: [SULFA (SULFONAMIDE ANTIBIOTICS)]Drug allergy (disorder)24-61-8646ZVA, Difficulty [facility]athing[facility] ([facility] source)CephalexinDrug Gypldfv36-59-3028[facility] (10 sources)Sulfonamides (Antibiotic); Translations: [sulfa drugs]Drug allergy Unknown (qualifier value)[facility] (17 sources)Naproxen; Translations: [NAPROXEN SODIUM]Drug Mlmgzjj76-47-0557 [facility] (20 sources)Sulfonamides (Antibiotic)Drug Eajxxtq72-59-5794PtsvtbioqqfAkdcdgaxg Clinic (12 sources)Sulfamethoxazole; Translations: [sulfamethoxazole]Drug Allergy 90-58-1598Yawomdtjiy BreathingMount [facility]. [facility] (20 sources)Trimethoprim; Translations: [trimethoprim]Drug Ktwgdqo28-88-[address] [facility] (10 sources)Ciprofloxacin; Translations: [CIPROFLOXACIN]Drug Hzcakix91-26-7928 [facility] (1 source)Sulfonamides (Antibiotic)Drug allergy (disorder)58-03-7135LcdedipeiMount St. [facility] (1 source)Unable to AssessDrug allergy (disorder)60-47-9158NyfilfdjrMount St. [facility] (1 source)Sulfamethoxazole / Trimethoprim; Translations: [SULFAMETHOXAZOLE-TRIMETHOPRIM]Drug Apukrpx82-96-0250CfhfkcealtSelect [facility] (1 source)traZODone; Translations: [TRAZODONE]Drug Xvoociy78-75-2341WxnukapxpqSelect [facility] (1 source)NITROFURANTOIN MONOHYD/M-CRYST; Translations: [NITROFURANTOIN MONOHYD/M-CRYST]Propensity to adverse reactions to drug (disorder)11-10-2024 [facility] Medications Current Medications MedicationDrug Class(es)DatesSig (Normalized)Sig (Original)acetaminophen 500 mg oral tablet (20 sources)Start: 16-51-9590xvwp 1 tablet by mouth every eight hours Acetaminophen 500 mg Tablet Active 500 MG PO Q8H 0 September 05, 2024 12:00am Start: 82-44-1349lsob 1 tablet by mouth every six hours as neededCVS Acetaminophen Ex St 500 MG tablet Take 500 mg by mouth every 6 (six) hours if needed 09/18/2023ctivealbuterol 0.833 mg/ml / ipratropium bromide 0.167 mg/ml inhalation solution (14 sources)Anticholinergic, beta2-Adrenergic AgonistStart: 11-02-2024 ipratropium-albuterol (Duo-Neb) 0.5-2.5 mg/3 mL nebulizer solution Three times daily as needed for wheezing 11/02/2024 ActiveStart: 11-02-2024 End: 96-21-8397jfcn 1 mL by inhalation three times daily as needed for wheezing Ipratropium-Albuterol 0.5 mg-3 mg(2.5 mg base)/3 mL Solution For Nebulization Discontinued 3 ML INHALATION Three times daily as needed for wheezing November 02, 2024 12:00am December 15, 2024 6:32pmALPRAZolam 1 mg oral tablet (20 sources)BenzodiazepineStart: 12-15-2024 End: 82-21-8464KOOFWCiztg (Xanax) 1 MG tablet Indications: Parkinson's disease, unspecified whether dyskinesia present, unspecified whether manifestations fluctuate (HCC) Take 1.5 tablets (1.5 mg) by mouth at bedtime 1.5 tab 45 tablet 02/03/2025 ActiveStart: 10-28-2024 End: 67-20-9454wepr 1 tablet by mouth three times daily as needed for anxiety Alprazolam 0.5 mg tablet Discontinued 0.5 MG PO Three times daily as needed for anxiety 04 09November 02, 2024 8:27am February 27, 2025 12:55pmStart: 08-20-2024 End: 33-61-3728nudh 1.5 mg by mouth once daily at bedtime as needed for sleep Alprazolam (Xanax) 1 mg tablet Discontinued 1.5 MG PO Daily at bedtime as needed for sleep August 20, 2024 12:00am November 02, 2024 8:33amStart: 02-10-2020 End: 92-60-6412ypvt 1 tablet by mouth at bedtimeComment on above:Take 1 mg by mouth at bedtime as needed.amantadine hydrochloride 100 mg oral tablet (20 sources)Influenza A M2 Protein InhibitorStart: 26-73-3566aerk 1 tablet by mouth three times dailyStart: 10-22-2023 End: 13-76-6720fjkz 1 tablet by mouth three times dailyAmantadine Hcl 100 mg tablet Discontinued 100 MG PO Three times daily August 24, 2024 12:00am December 18, 2024 11:09amStart: 10-22-2023 End: 66-55-0287dedw 1 tablet by mouth twice dailyStart: 10-17-2023 End: 91-43-3151scap 1 tablet by mouth once dailyAmantadine Hcl 100 mg tablet Discontinued 100 MG PO Daily December 18, 2024 11:09am January 29, 2025 9:58am Start: 10-17-2023 End: 06-93-9208xgkz 1 tablet by mouth twice dailyamantadine HCl (SYMMETREL) 100 mg tablet Indications: Parkinson's disease with dyskinesia and fluctuating manifestations (HCC) Take 1 tablet by mouth two times a day. 30 tablet 2 10/17/2023 10/18/2023 Discontinued (Dosage adjustment)ascorbic acid 1000 mg oral tablet (3 sources)Vitamin CStart: 09-57-2188ajop 1 g by mouth once dailyAscorbic Acid (Vitamin C) 1,000 mg capsule Active 1 GM PO Daily August 21, 2024 12:00am aspirin 81 mg oral tablet (20 sources)Platelet Aggregation Inhibitor, Nonsteroidal Anti-inflammatory Drug Start: 92-94-7362zkko 1 tablet by mouth once dailyStart: 11-02-2024 End: 97-50-4336esvg 1 tablet by mouth in the eveningAspirin 325 mg Tablet Discontinued 325 MG PO .PM December 15, 2024 12:00am December 18, 2024 11:09amStart: 08-21-2024 End: 99-77-8250idqr 1 tablet by mouth once dailyAspirin 81 mg tablet,chewable Discontinued 81 MG PO Daily August 21, 2024 12:00am November 02, 2024 8:33amStart: 00-17-6220prxl 1 tablet by mouth once dailyaspirin 81 mg oral tablet 81 mg = 1 tab(s), Oral, Daily Start Date: 02/10/20 Status: OrderedStart: 90-59-7489rvpk 1 tablet by mouth once dailyaspirin, enteric coated (ASPIR-LOW) 81 mg EC tablet Take 1 tablet by mouth once daily. 0 06/18/2014ctiveComment on above:Take 1 tablet by mouth once daily.carbidopa 25 mg / levodopa 100 mg extended release oral tablet (20 sources)Aromatic Amino Acid Decarboxylation Inhibitor, Aromatic Amino Acid Start: 26-05-9844wsxp 1 tablet by mouth four times dailyStart: 01-29-2025 End: 56-57-6896uvru 1 tablet by mouth four times dailyCarbidopa-Levodopa (Sinemet) 10-100 mg tablet Discontinued 1 TAB PO Four times daily January 29, 2025 9:57am March 02, 2025 6:17amStart: 42-48-5321cewx 1 tablet by mouth four times daily at bedtimecarbidopa-levodopa CR (SINEMET CR) 25-100 mg per tablet Indications: Parkinson's disease with dyskinesia and fluctuating manifestations (HCC) Take 1 tablet by mouth four times daily. Take at 8am, 12pm, 5pm, and bedtime. 270 tablet 3 12/29/2024 ActiveStart: 08-21-2024 End: 39-23-7574zanr 1 tablet by mouth three times dailyCarbidopa-Levodopa (Sinemet) 10-100 mg tablet Discontinued 1 TAB PO Three times daily August 21, 2024 12:00am January 29, 2025 9:58amStart: 01-14-2024 End: 81-25-5205clrq 1 tablet by mouth three times dailycarbidopa-levodopa CR (Sinemet CR) 25-100 MG ER tablet TAKE 1 TABLET BY MOUTH 3 TIMES A DAY (7AM, 12PM AND 5PM) 06/06/2024 ActiveStart: 01-02-2024 End: 64-97-0366hzbe 1 tablet by mouth three times dailycarbidopa-levodopa (SINEMET 25-100) 25-100 mg per tablet Take 1 tablet by mouth three times a day. 270 tablet 3 01/02/2024 01/14/2024 DiscontinuedStart: 09-13-2023 End: 00-74-5676iokn 1 tablet by mouth in the morning, then take 1 tablet by mouth in the evening, then take 1 tablet by mouth at bedtimeSinemet 25-100 MG tablet Take 1 tablet by mouth in the morning and 1 tablet in the evening and 1 tablet before bedtime. 09/13/2023 11/26/2024 Discontinued (Discontinued by another clinician)Start: 09-13-2023 End: 95-46-2922wfsp 0.5 tablet by mouth three times daily, then take 1 tablet by mouth three times dailycarbidopa-levodopa (SINEMET) 25-100 mg per tablet Take 0.5 tablets by mouth three times a day for 7days, THEN 1 tablet three times a day. Take at 7am, noon, and 5pm.. 101 tablet 2 09/13/2023 Active End: 31-20-9684wcsj 1 tablet by mouth once dailycarbidopa-levodopa CR (SINEMET CR) 25-100 mg per tablet Take 1 tablet by mouth once daily. 0 09/13/2023 Discontinued (Course of therapy completed)Comment on above:Take 0.5 tablets by mouth three times a day for 7 days, THEN 1 tablet three times a day. Take at 7am , noon, and 5pm..Take 1 tablet by mouth once daily.ciprofloxacin 500 mg oral tablet (19 sources)Quinolone AntimicrobialStart: 09-47-2576zocy 1 tablet by mouth twice dailyStart: 10-28-2024 End: 61-42-8474evdh 1 tablet by mouth twice dailyCiprofloxacin Hcl (Cipro) 500 mg tablet Discontinued 500 MG PO Twice daily October 28, 2024 12:00am November 02, 2024 8:33amStart: 07-26-2024 End: 32-78-0433nbya 1 tablet by mouth twice dailyCipro 500 mg Tab 500 mg = 1 tab(s), Oral, BID, # 14 tab(s), Refills(s) 0, Pharmacy: [facility]/pharmacy #[id number], 167, cm, 07/26/24 16:07:00 EST, Height/Length Dosing, 54, kg, 07/26/24 16:07:00 EST, Weight Dosing Start Date: 07/26/24 Status: OrderedStart: 70-33-1708Ascpz 500 mg Tab See Instructions, Take 1 tab day prior to procedure and 1 tab day of procdure - afterwards, # 2 tab(s), Refills(s) 0, Pharmacy: [facility]/pharmacy #[id number], 167, cm, 02/10/20 14:06:00 EDT, Height/Length Dosing, 52, kg, 02/10/20 14:06:00 EDT, Weight Dosing Start Date: 02/25/20 Status: Orderedcyclobenzaprine hydrochloride 10 mg oral tablet (20 sources)Muscle RelaxantStart: 07-30-2023 End: 23-41-2000mjfvbotvnnwkxuk (FLEXERIL) 10 mg tablet Take 10 mg by mouth. 07/30/2023 ActiveComment on above:Take 10 mg by mouth.Daily Multiple for Women 50+ oral tablet (5 sources)Start: 92-48-0454stky 1 tablet by mouth once dailyDaily Multiple for Women 50+ oral tablet 1 tab(s), Oral, Daily Start Date: 02/10/20 Status: Wrdaiej33 hr dilTIAZem hydrochloride 180 mg extended release oral capsule (17 sources)Calcium Channel BlockerStart: 23-46-3140jzbv 1 capsule by mouth twice dailyStart: 11-02-2024 End: 07-50-0231stiz 1 capsule by mouth once daily, then take 1 capsule by mouth every twenty-four hoursDiltiazem Hcl (Cardizem Cd) 180 mg capsule,extended release 24hr Discontinued 180 MG PO Daily November 02, 2024 12:00am March 05, 2025 12:21pmlutein 25 mg / zeaxanthin 5 mg oral capsule (20 sources)Start: 24-66-9051Kvpmbb-Zeaxanthin 25-5 MG capsule 1 capsule 08/21/2024 ActiveStart: 08-21-2024 End: 60-87-9030dhrr 1 capsule by mouth once dailyLutein-Zeaxanthin 25-5 mg capsule Discontinued 1 CAP PO Daily August 21, 2024 12:00am November 02, 2024 8:33amMisc Medication (5 sources)Start: 85-01-2682Szxh Medication calcium +D3 Start Date: 02/10/20 Status: OrderedMultivitamin preparation (16 sources)MULTIVITAMIN (VITAMIN DAILY ORAL) Take by mouth once daily. Active MULTIVITAMIN (VITAMIN DAILY ORAL) Take by mouth once daily. 0 ActiveComment on above:Take by mouth once daily.Multivitamin tablet (3 sources)Start: 27-44-3881ogjh 1 tablet by mouth once dailyMultivitamin tablet Active 1 TAB PO Daily August 21, 2024 12:00ampolyethylene glycol 3350 50421 mg powder for oral solution (7 sources)Osmotic LaxativeStart: 91-09-3631wmwuurafxwptmuoiv potassium chloride 20 meq extended release oral tablet (20 sources)Start: 46-62-2862cfen 1 tablet by mouth twice dailyStart: 06-30-2023 End: 43-63-2839Alwcqmght Chloride (Klor-Con M20) 20 mEq tablet,ER particles/crystals Discontinued 20 MEQ PO Twice daily October 28, 2024 12:00am November 02, 2024 8:33amStart: 15-70-1114mlcy 1 tablet by mouth every twelve hoursKLOR- CON M20 20 mEq tablet Take 1 tablet by mouth every 12 hours. 06/30/2023 Active Start: 35-80-4172iksl 1 tablet by mouth twice dailypotassium chloride 20 mEq ER Tab 20 mEq = 1 tab(s), Oral, BID, Prophylaxis Start Date: 02/10/20 Status: Ordered Start: 79-87-5141yvon 2 tablets by mouth once dailypotassium chloride 20 mEq ER Tab 40 mEq = 2 tab(s), Oral, Daily Start Date: 02/10/20 Status: Ordered End: 76-00-2195czqe 2 tablets by mouth in the morningpotassium chloride CR (Klor-Con) 10 MEQ ER tablet Take 20 mEq by mouth in the morning and 20 mEq bef ore bedtime. 11/26/2024 Discontinued (Discontinued by another clinician) potassium chloride (KLOR-CON 10) 10 mEq tablet Take 20 mEq by mouth once daily. ActiveComment on above:Take 20 mEq by mouth once daily. Take 1 tablet by mouth every 12 hours.QUEtiapine 25 mg oral tablet (20 sources)Atypical AntipsychoticStart: 24-88-6072kobt 1 tablet by mouth once daily at bedtimeStart: 08-25-2024 End: 07-42-9199xyrs 1 tablet by mouth once daily at bedtimeQuetiapine 25 mg Tablet Discontinued 25 MG PO Daily at bedtime 0 August 25, 2024 12:00am September 05, 2024 9:01amrOPINIRole 0.25 mg oral tablet (20 sources)Nonergot Dopamine AgonistStart: 59-38-9253rzeq 1 tablet by mouth at bedtimerOPINIRole (Requip) 0.5 MG tablet Take 0.5 mg by mouth at bedtime 09/15/2024 ActiveStart: 88-86-9583bnnl 2 tablets by mouth once daily at bedtime Start: 09-13-2023 End: 46-13-8923ejen 1 tablet by mouth three times dailyRopinirole 0.25 mg tablet Discontinued 0.25 MG PO Three times daily August 20, 2024 12:00am August 25, 2024 12:12pmStart: 09-13-2023 End: 92-12-9354vidz 1 tablet by mouth once daily at bedtimeRopinirole 0.25 mg Tablet Discontinued 0.25 MG PO Daily at bedtime 0 August 25, 2024 12:00am October 28, 2024 4:15pmComment on above:Reduce to 2 tablets, twice/day. After a week, reduce it to 1 tablet in morning and 2 tabs at night.After a week, reduce to only 2 tabs at night. After a week, reduce it to 1 tab at night. Continue on that dose thereafter.Rx Discharge Order Notice (1 source)Start: 70-71-1895Pw Discharge Order Notice Active 1 ea miscellaneous Once 0 September 05, 2024 12:00amsennosides, alf 8.6 mg oral tablet (14 sources)Start: 12-18-2024 End: 18-52-5081zisi 2 tablets by mouth twice dailytake 1 tablet by mouth every twelve hours as neededsenna (SENOKOT) 8.6 mg tab Take 8.6 mg by mouth two times a day as needed for constipation. Activespironolactone 25 mg oral tablet (18 sources)Aldosterone AntagonistStart: 35-72-7146crwo 1 tablet by mouth once daily in the morningStart: 07-22-2024 End: 86-72-5157okzm 1 tablet by mouth once dailyspironolactone (Aldactone) 50 MG tablet TAKE 1 TABLET BY MOUTH EVERY DAY FOR 3 DAYS 07/22/2024 11/26/2024 Discontinued (Discontinued by another clinician)Vitamin D (1 source)Start: 75-03-7754Tmwxppc D Refills(s) 0 Start Date: 08/11/24 Status: Ordered Completed/Discontinued Medications MedicationDrug Class(es)DatesSig (Normalized)Sig (Original)acetaminophen 325 mg / HYDROcodone bitartrate 5 mg oral tablet (4 sources)Opioid AgonistStart: 09-25-2024 End: 58-20-5860rlwg 1 tablet by mouth every six hours for pain, then take 2 tablets by mouth every six hours for painHYDROcodone-acetaminophen ([place]) 5-325 MG tablet Indications: Closed fracture of superior ramus ofleft pubis, initial encounter ([facility] May take 1 tablet by mouth every 6 (six) hours if needed for severe pain. May also take 2 tablets every 6 (six) hours if needed for severe pain. Do all this for 7 days. 30 tablet 09/25/2024 10/02/2024 ExpiredStart: 05-91-2600Ywiav 325 mg-5 mg oral tablet See Instructions, for pain, 30 tab(s), Refill(s) 0, 1 - 2 po q4-6h prn pain Dx: S52.501D Duration: 7 days, [facility]/pharmacy #[id number], 167, cm, 08/07/24 6:28:00 EST, Height/Length Dosing, 54.2, kg, 08/07/24 6:28:00 EST, Weight Dosing Start Date: 08/12/24 Status: Orderedacetaminophen 325 mg / oxyCODONE hydrochloride 5 mg oral tablet (16 sources)Opioid AgonistStart: 07-25-2024 End: 07-47-0820vciDXJNUE-acetaminophen (Percocet) 5-325 MG tablet 07/25/2024 11/26/2024 Discontinued (Discontinuedby another clinician)Start: 07-24-2024 End: 92-33-4095zakq 1 tablet by mouth every six hours as needed for pain oxyCODONE-acetaminophen (Percocet) 5-325 MG tablet TAKE 1 TABLET BY MOUTH EVERY 6 HOURS NEEDED FOR PAIN (8-10) FOR 3 DAYS 07/25/2024 ActiveamLODIPine 5 mg oral tablet (20 sources)Dihydropyridine Calcium Channel BlockerStart: 07-02-2023 End: 71-72-0376kzws 1 tablet by mouth once dailyAmlodipine 5 mg tablet Discontinued 5 MG PO Daily October 28, 2024 12:00am November 02, 2024 8:33amStart: 14-59-8957nrdh 1 tablet by mouth once dailyamLODIPine 10 mg Tab 10 mg = 1 tab(s), Oral, Daily Start Date: 02/10/20 Status: OrderedComment on above:Take 10 mg by mouth once daily.amoxicillin 875 mg / clavulanate 125 mg oral tablet (8 sources)Penicillin-class AntibacterialStart: 11-02-2024 End: 73-36-5623rhis 1 tablet by mouth twice dailyAmoxicillin-Pot Clavulanate 875-125 mg tablet Discontinued 1 TAB PO Twice daily 14 November 022:00am December 15, 2024 6:06pmCalcium Carbonate (7 sources) End: 16-74-3135KFFAYPL CARBONATE (CALCIUM 600 ORAL) Take by mouth twice daily. 0 10/17/2023 DiscontinuedCALCIUM CARBONATE (CALCIUM 600 ORAL) Take by mouth twice daily. 0 ActiveComment on above:Take by mouth twice daily.Calcium Carbonate-Vit D-Min (Calcium 600+D Plus Minerals) 600-400 MG-UNIT tablet (20 sources) End: 08-93-4699Jcnlpnl Carbonate-Vit D-Min (Calcium 600+D Plus Minerals) 600-400 MG-UNIT tablet 1 (one) time each day at the same time 11/26/2024 Discontinued (Discontinued by another clinician)Calcium Carbonate-Vit D-Min (Calcium 600+D Plus Minerals) 600-400 MG-UNIT tablet 1 (one) time each day at the same time Activecephalexin 500 mg oral capsule (9 sources)Cephalosporin AntibacterialStart: 02-27-2025 End: 29-70-6423eogl 1 capsule by mouth three times dailyCephalexin 500 mg capsule Discontinued 500 MG PO Three times daily March 02, 2025 12:00am March 05, 2025 12:21pm 7 daysStart: 08-03-2024 End: 41-36-6163xxmp 1 capsule by mouth every twelve hoursKeflex 500 mg Cap 500 mg = 1 cap(s), Oral, q12hr, X 5 day(s), # 10 cap(s), Refills(s) 0, Pharmacy: [facility]/pharmacy #[id number], 167, cm, 08/03/24 19:04:00 EST, Height/Length Dosing, 54.2, kg, 08/03/24 19:04:00 EST, Weight Dosing Start Date: 08/03/24 Stop Date: 08/08/24 Status: OrderedStart: 06-23-2023 End: 64-72-2698yvup 1 capsule by mouth three times dailyKeflex 500 mg Cap 500 mg = 1 cap(s), Oral, TID, X 5 day(s), # 15 cap(s), Refills(s) 0, Pharmacy: [facility] /pharmacy #[id number], 167, cm, 06/23/23 1:52:00 EST, Height/Length Dosing, 56.3, kg, 06/23/23 1:52:00 EST, Weight Dosing Start Date: 06/23/23 Stop Date: 06/28/23 Status: Orderedcholecalciferol 0.125 mg oral capsule (20 sources)Vitamin DStart: 10-28-2024 End: 90-33-6693wnxn 1 capsule by mouth in the eveningCholecalciferol (Vitamin D3) 125 mcg (5,000 unit) capsule Discontinued 125 MCG PO .PM October 28, 2024 12:00am December 18, 2024 11:12amStart: 92-20-4277tsuy 1 capsule by mouth once dailyCholecalciferol (Vitamin D3) 125 mcg (5,000 unit) capsule Active 125 MCG PO Daily August 21, 2024 12:00amtake 1 tablet by mouth once dailyCholecalciferol, Vitamin D3, (D3 DOTS) 2,000 unit tab Take 2,000 Units by mouth once daily. ActiveComment on above:Take 2,000 Units by mouth once daily.docusate sodium 100 mg oral capsule (7 sources)Start: 02-19-2025 End: 55-75-6505nqhy 1 capsule by mouth three times dailyDocusate Sodium 100 mg capsule Discontinued 100 MG PO Three times daily February 27, 2025 12:00am March 05, 2025 12:21pmFolic Acid (7 sources) End: 08-79-5177wdgr 800 mg by mouth once dailyFOLIC ACID ORAL Take 800 mg by mouth once daily. 0 10/17/2023 Discontinuedtake 800 mg by mouth once dailyFOLIC ACID ORAL Take 800 mg by mouth once daily. 0 ActiveComment on above:Take 800 mg by mouth once daily.gabapentin 300 mg oral capsule (20 sources)Anti-epileptic AgentStart: 08-21-2024 End: 61-82-3383clhn 1 capsule by mouth three times dailyGabapentin 300 mg capsule Discontinued 300 MG PO Three times daily August 21, 2024 12:00am August 25, 2024 12:12pmStart: 97-28-9141vday 1 capsule by mouth once daily, then take 1 capsule by mouth twice daily, then take 1 capsule by mouth three times daily gabapentin (NEURONTIN) 300 mg capsule TAKE 1 CAPSULE BY MOUTH ONCE DAILY X3DAYS, 1 CAPSULE TWICE DAILY X3DAYS THEN 1 CAPSULE 3 TIMES DAILY 07/30/2023 Active Comment on above:TAKE 1 CAPSULE BY MOUTH ONCE DAILY X3DAYS, 1 CAPSULE TWICE DAILY X3DAYS THEN 1 CAPSULE 3 TIMES DAILYhydrALAZINE hydrochloride 25 mg oral tablet (20 sources)Arteriolar VasodilatorStart: 12-12-2024 End: 64-53-6367wetc 1 tablet by mouth twice dailyHydralazine 25 mg tablet Discontinued 25 MG PO Twice daily December 15, 2024 12:00am December 18, 2024 11:09am Start: 09-15-2024 End: 09-66-3825rjyy 1 tablet by mouth twice dailyStart: 08-25-2024 End: 48-89-2424fpiy 1 tablet by mouth twice dailyHydralazine 25 mg Tablet Discontinued 25 MG PO Twice daily 60 August 25, 2024 12:00am November 02, 2024 8:33amhydroCHLOROthiazide 25 mg oral tablet (5 sources)Thiazide DiureticStart: 08-13-2024 End: 62-85-4685ipqn 1 tablet by mouth in the morninghydroCHLOROthiazide (HYDRODiuril) 25 MG tablet Take 25 mg by mouth in the morning. 08/13/20242024 Discontinued (Discontinued by another clinician)hydroCHLOROthiazide 25 mg / lisinopril 20 mg oral tablet (20 sources)Thiazide Diuretic, Angiotensin Converting Enzyme InhibitorStart: 02-10-2020 End: 89-11-7556ypwm 1 tablet by mouth once dailyLisinopril-Hydrochlorothiazide 20-25 mg tablet Discontinued 1 TAB PO Daily August 21, 2024 12:00amMa2024 12:12pmComment on above:Take 1 tablet by mouth once daily.hyoscyamine sulfate 0.125 mg oral tablet (8 sources)Start: 10-28-2024 End: 54-62-0809rpcn 2 tablets by mouth four times daily as neededHyoscyamine Sulfate 0.125 mg tablet Discontinued 0.25 MG PO Four times daily as needed for dyspepsia October 28, 2024 12:00am November 02, 2024 8:33amL. Acidophilus/Bifid. Animalis (Probiotic) 5 billion cell capsule, sprinkle (8 sources)Start: 11-02-2024 End: 02-27-2025L. Acidophilus/Bifid. Animalis (Probiotic) 5 billion cell capsule, sprinkle Discontinued 1 CAP PO Daily November 02, 2024 12:00am February 27, 2025 12:56pmStart: 11-02-2024L. Acidophilus/Bifid. Animalis (Probiotic) 5 billion cell capsule, sprinkle Active 1 CAP PO Daily November 02, 2024 12:00am Complies with drug therapyStart: 20-67-5519xihqqtzjbp 10 mg oral tablet (20 sources)Angiotensin Converting Enzyme InhibitorStart: 11-02-2024 End: 46-17-6212svuz 1 tablet by mouth once dailyLisinopril 10 mg Tablet Discontinued 10 MG PO Daily 0 November 02, 2024 12:00am December 15, 2024 6:33pmStart: 08-13-2024 End: 47-14-8788tstn 1 tablet by mouth in the morninglisinopril 40 MG tablet Take 40 mg by mouth in the morning. 08/13/2024 11/26/2024 Discontinued (Discontinued by another clinician) End: 09-42-8427zatl 1 tablet by mouth once dailylisinopril 20 MG tablet Take 1 tablet by mouth Daily 07/30/2024 Discontinuedmeropenem 1000 mg injection (10 sources)Penem AntibacterialStart: 08-25-2024 End: 49-87-4282zmty 1 g intravenously every twelve hoursMeropenem 1 gram Recon Soln Discontinued 1 GM IV Q12H 0 1 August 25, 2024 12:00am September 05, 2024 9:01ammetoprolol tartrate 100 mg oral tablet (20 sources)beta-Adrenergic Ayo End: 62-03-2252mgmp 1 tablet by mouth in the morningmetoprolol tartrate (Lopressor) 100 MG tablet Take 100 mg by mouth in the morning and 100 mg before bedtime. 11/26/2024 Discontinued (Discontinued by another clinician)Comment on above:Take 100 mg by mouth twice daily.metroNIDAZOLE 500 mg oral tablet (8 sources)Nitroimidazole AntimicrobialStart: 10-28-2024 End: 10-55-6635olxa 1 tablet by mouth three times dailyMetronidazole 500 mg tablet Discontinued 500 MG PO Three times daily October 28, 2024 12:00am November 02, 2024 8:33amMisc. Devices (Platform Walker Attachment) misc (11 sources)Start: 09-10-2024 End: 98-60-4797Aeux. Devices (Platform Walker Attachment) [facility] [place] Indications: Right wrist pain , Other closed intra-articular fracture of distal end of right radius with routine healing, subsequent encounter 1 DeviceDaily Patient requires RIGHT Platform for FWW d/t R wrist Fx 1 each 09/10/2024 11/26/2024 Discontinued (Discontinued by another clinician)Start: 15-29-5034Envm. Devices (Platform Walker Attachment) [facility] [place] Indications: Right wrist pain , Other closed intra-a rticular fracture of distal end of right radius with routine healing, subsequent encounter 1 DeviceDaily Patient requires RIGHT Platform for FWW d/t R wrist Fx 1 each 09/10/2024 ActiveOLANZapine 5 mg oral tablet (8 sources)Atypical AntipsychoticStart: 10-28-2024 End: 78-15-6792zwnd 1 tablet by mouth once dailyOlanzapine 5 mg tablet Discontinued 5 MG PO Daily October 28, 2024 12:00am November 02, 2024 8:33amOMEGA-3 FATTY ACIDS/FISH OIL (OMEGA 3 FISH OIL ORAL) (7 sources) End: 67-70-9118UZHPK-3 FATTY ACIDS/FISH OIL (OMEGA 3 FISH OIL ORAL) Take by mouth. 0 10/17/2023 DiscontinuedOMEGA-3 FATTY ACIDS/FISH OIL (OMEGA 3 FISH OIL ORAL) Take by mouth. 0 ActiveComment on above:Take by mouth.OMEGA-3/DHA/EPA/FISH OIL (OMEGA-3 FISH OIL ORAL) (7 sources) End: 79-74-6247MEVQU-3/DHA/EPA/FISH OIL (OMEGA-3 FISH OIL ORAL) Take 1,200 mg by mouth twice daily. 0 10/17/2023 DiscontinuedOMEGA-3/DHA/EPA/FISH OIL (OMEGA-3 FISH OIL ORAL) Take 1,200 mg by mouth twice daily. 0 ActiveComment on above:Take 1,200 mg by mouth twice daily.omeprazole 20 mg delayed release oral capsule (20 sources)Proton Pump InhibitorStart: 09-11-2023 End: 40-21-5901ffrl 1 capsule by mouth before mealtimeomeprazole (PriLOSEC) [address] capsule Take 20 mg by mouth in the morning. Take before meals. 09/11/2023 11/26/2024 Discontinued (Discontinued by another clinician)pantoprazole 40 mg delayed release oral tablet (20 sources)Proton Pump InhibitorStart: 11-55-1735bncw 1 tablet by mouth twice dailyPantoprazole [address] Tab 40 mg = 1 tab(s), Oral, BID, Refills(s) 0, Indigestion Start Date: 08/11/24Status: OrderedStart: 08-13-2023 End: 06-76-3939reuv 1 tablet by mouth once daily in the morningPantoprazole 40 mg tablet,delayed release (DR/EC) Discontinued 40 MG PO Every morning August 21, 2024 12:00am February 27, 2025 12:56pmphenazopyridine hydrochloride 200 mg delayed release oral tablet (20 sources)Start: 09-07-2023 End: 64-83-3971ufljnvibyvzncry (Pyridium) 200 MG tablet Take 200 mg by mouth in the morning and 200 mg at noon klc699 mg in the evening. Take with meals. 09/07/2023 11/26/2024 Discontinued (Discontinued by anotherclinician)pravastatin sodium 20 mg oral tablet (20 sources)HMG-CoA Reductase InhibitorStart: 02-10-2020 End: 29-56-7508ptdo 1 tablet by mouth once dailyPravastatin 20 mg tablet Discontinued 20 MG PO Daily August 21, 2024 12:00am August 25, 2024 12:12pm Comment on above:Take 20 mg by mouth once daily.rasagiline 1 mg oral tablet (20 sources)Monoamine Oxidase InhibitorStart: 07-20-2023 End: 47-28-9713wkqr 1 tablet by mouth once dailyRasagiline 1 mg tablet Discontinued 1 MG PO Daily August 21, 2024 12:00am January 14, 2025 1:52pm Comment on above:Take by mouth.sucralfate 1000 mg oral tablet (20 sources)Aluminum ComplexStart: 32-43-9898qbxu 1 tablet by mouth once daily sucralfate 1 g Tab 1 gm = 1 tab(s), Oral, Daily, Refills(s) 0 Start Date: 08/11/24 Status: OrderedStart: 07-10-2024 End: 43-18-2734hmfd 1 tablet by mouth four times dailySucralfate 1 gram tablet Discontinued 1 GM PO Four times daily October 28, 2024 12:00am November 02, 2024 8:33amUNABLE TO FIND (20 sources) End: 83-82-6397HBBHKE TO FIND HANDICAP PLACARD 12/25/2024 Discontinued (Other) UNABLE TO FIND HANDICAP PLACARD Activezinc gluconate 50 mg oral tablet (8 sources)Start: 08-21-2024 End: 92-76-8041qkbc gluconate 50 MG tablet Daily 08/21/2024 11/26/2024 Discontinued (Discontinued by another clinician) Problems Active Problems Problem ClassificationProblemDateDocumented DateEpisodic/ChronicAbdominal pain (6 sources)Unspecified abdominal pain; Translations: [Pain in pelvis]Onset: 84-49-7209GxfgpgoaYyfbwac disorders (20 sources)Anxiety disorder, unspecified; Translations: [Anxiety]Onset: 897954-37-8542GmnvpzwSwinrjk disorders (1 source)Organic anxiety disorder; 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]93-62-2133MnpilbbbYnaxcigjo infection; unspecified site (1 source)Pseudomonas (aeruginosa) (mallei) (pseudomallei) as the cause of diseases classified elsewhere; Translations: [Pseudomonas (aeruginosa) (mallei) (pseudomallei) as the cause of diseases classified elsewhere]Onset: 03-02-2025 EpisodicCardiac dysrhythmias (2 sources)Paroxysmal atrial fibrillation; Translations: [Paroxysmal atrial fibrillation]Onset: 24-73-8591WbntoofEyssdnx kidney disease (16 sources)Chronic kidney disease stage 3B ; Translations: [Stage 3b chronic kidney disease (CMS-HCC)]Onset: 480545-78-9923JmnpvqyEojcocc obstructive pulmonary disease and bronchiectasis (20 sources)Chronic obstructive pulmonary disease, unspecified; Translations: [Chronic obstructive pulmonary disease with (acute) exacerbation]Onset: 71-00-9410PdhozevQuoagwsjvm heart failure; nonhypertensive (17 sources)Unspecified diastolic (congestive) heart failure; Translations: [Acute systolic (congestive) heart failure]Onset: 105857-25-4636Rvuirvk Deficiency and other anemia (1 source)Anemia, unspecified; Translations: [ANEMIA UNSPECIFIED]Onset: 38-72-0199UwkjtaptPsmirreg mellitus without complication (1 source)Type 2 diabetes mellitus without complications; Translations: [TYPE 2 DIABETES MELLITUS WITHOUT COMPLICATIONS]Onset: 43-39-0960GaeolncAgtycmjou of lipid metabolism (20 sources)Hyperlipidemia, unspecified; Translations: [Pure hypercholesterolemia, unspecified]Onset: 29-13-7188MvdsqoxH Codes: Fall (1 source)Fall; Translations: [Unspecified fall, initial encounter]Onset: 93-14-7059CjwkoqhwXsbaodhedd disorders (11 sources)Gastroesophageal reflux disease; Translations: [Gastro-esophageal reflux disease without esophagitis]Onset: 134111-58-6607QekktgyYqbelxtiz hypertension (20 sources)Essential (primary) hypertension; Translations: [Essential hypertension]Onset: 18-05-7508EheljrzRwvgxdfp Injury - Fall (1 source)Unspecified fall, initial encounter; Translations: [UNSPECIFIED FALL, INITIAL ENCOUNTER]Onset: 79-18-3041Bnyohkuz of upper limb (20 sources)Closed fracture of distal end of radius; Translations: [Unspecified fracture of the lower end of unspecified radius, initial encounter for closed fracture]Onset: 75-72-9318VsbdachkBfizombevokon symptoms and ill-defined conditions (20 sources)Personal history of urinary (tract) infections; Translations: [History of recurrent urinary tract infection]Onset: EpisodicHypertension with complications and secondary hypertension (18 sources)Hypertensive heart disease with heart failure; Translations: [Hypertensive emergency]Onset: 359279-00-8502PfwgfxsUhsoqto and fatigue (20 sources)Weakness; Translations: [Asthenia]Onset: 47-72-6502Kpnnxxzv Miscellaneous mental health disorders (20 sources)Primary insomnia; Translations: [Primary insomnia]Onset: 10-25-2023 00-25-3633BpltzstPncipnscfcxlh gastroenteritis (9 sources)Acute gastroenteritis; Translations: [Noninfective gastroenteritis and colitis, unspecified]Onset: 075222-01-4237WzmhvmujHyuwttqkzzn deficiencies (8 sources)Unspecified protein-calorie malnutrition; Translations: [Vitamin D deficiency, unspecified]Onset: 975557-70-6500KrofloqAlejymdgt or stenosis of precerebral arteries (4 sources)Bilateral stenosis of carotid arteries; Translations: [Occlusion and stenosis of bilateral carotid arteries]49-32-4491StqxjltEvuxj circulatory disease (8 sources)History of cerebrovascular accident; Translations: [Personal history of transient ischemic attack (TIA), and cerebral infarction without residual deficits]85-93-2770CtwtyhynJziym connective tissue disease (20 sources)Muscle atrophy; Translations: [Muscle wasting and atrophy, not elsewhere classified, unspecified site]Onset: 880627-47-6926RiuaojgjDrkqe diseases of kidney and ureters (6 sources)Myqptbmtueqcqr53-80-4951EtkmpnujVpoqv eye disorders (1 source)Degenerative disorder of eye; 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, bilateral eye]84-33-4263ZtphhdpVghmq fractures (20 sources)Fracture of superior pubic ramus; Translations: [Fracture of superior rim of left pubis, initial encounter for closed fracture]Onset: 302893-03-0619ZsneuajpUvioo gastrointestinal disorders (1 source)Slow transit constipation; Translations: [Slow transit constipation] 19-30-7783NaigulttAdxef gastrointestinal disorders (1 source)Slow transit constipation; Translations: [Slow transit constipation] Onset: 53-35-2974OyalkzxfEcdta gastrointestinal disorders (4 sources)Constipation; Translations: [Constipation, unspecified]02-15-2025 EpisodicOther hereditary and degenerative nervous system conditions (20 sources)Intention tremor; Translations: [Other specified forms of tremor] Onset: 967311-06-3536IdcheduSpeha hereditary and degenerative nervous system conditions (20 sources)Restless legs; Translations: [Restless legs syndrome]Onset: 066311-09-1758ImzxdpmTuncx hereditary and degenerative nervous system conditions (20 sources)Dyskinesia; Translations: [Dystonia, unspecified]Onset: 10-25-2023 77-44-3934UzaqlllSccxi injuries and conditions due to external causes (1 source)Injury of upper extremity; Translations: [Unspecified injury of unspecified wrist, hand and finger(s), initial encounter]Onset: 07-24-2024 EpisodicOther lower respiratory disease (1 source)Hypoxemia; Translations: [Hypoxemia]Onset: 05-41-7655KriekwbjGtmgo lower respiratory disease (6 sources)History of chronic lung pxaqoct44-66-8972FwnqdtlsPdluf nervous system disorders (20 sources)Neuropathy; Translations: [Polyneuropathy, unspecified]Onset: 935174-70-2545QknarpvMapyp nervous system disorders (20 sources)Carpal tunnel syndrome of right wrist; Translations: [Carpal tunnel syndrome, right upper limb]Onset: 076874-59-7365FldbipoFtqhz nervous system disorders (20 sources)Chronic pain; Translations: [Other chronic pain]Onset: 10-25-2023 25-30-2933NzqhzjyEiztr nervous system disorders (20 sources)Metabolic encephalopathy; Translations: [Metabolic encephalopathy] Onset: 165053-95-3772KsujahtHigdj nervous system disorders (4 sources)Metabolic encephalopathy; Translations: [Metabolic encephalopathy] Onset: 535597-96-8874ErpvebiBstsc nervous system disorders (14 sources)Abnormal circadian rhythm; Translations: [Circadian rhythm sleep disorder, unspecified type]32-98-1505StbutiwFdbuf nervous system disorders (20 sources)Disorder of brain; Translations: [Encephalopathy, unspecified]Onset: 503821-33-9154IcsupbjYylmb nervous system disorders (1 source)Encephalopathy, unspecified; Translations: [Encephalopathy, unspecified]Onset: 29-74-7780AfvrcaoUaxna nervous system disorders (1 source)Circadian rhythm sleep disorder, unspecified type; Translations: [Circadian rhythm sleep disorder, unspecified type]Onset: 48-37-9886BueoihwJojog nervous system disorders (1 source)Abnormal gait; Translations: [Unsteadiness on feet]70-82-3824Lydqqfea Other nervous system disorders (1 source)Unsteadiness on feet; Translations: [Gait instability]Onset: 57-15-0080PqckzulgXcqnn non-traumatic joint disorders (5 sources)Pain of right wrist; Translations: [Pain in right wrist]07-30-2024 EpisodicOther nutritional; endocrine; and metabolic disorders (2 sources)Hypocalcemia; Translations: [Other disorders of phosphorus metabolism]Onset: 15-85-4250JrfsocnCbrmb nutritional; endocrine; and metabolic disorders (12 sources)Hypercalcemia; Translations: [Hypercalcemia]84-61-0327OyrsoulVhsso nutritional; endocrine; and metabolic disorders (3 sources)Hypercalcemia; Translations: [Hypercalcemia]Onset: 08-20-2024 87-36-4865BicqigeMukcy nutritional; endocrine; and metabolic disorders (1 source)Underweight; Translations: [Underweight]06-99-8033XohhrrwsXufxp nutritional; endocrine; and metabolic disorders (10 sources)Abnormal weight loss; Translations: [Abnormal weight loss]Onset: 503458-84-7207VhkrrxnmUwpju upper respiratory disease (1 source)Hoarse; Translations: [Dysphonia]63-20-9354FqyqbwjfDxjquowxw (20 sources)Right hemiplegia; Translations: [Hemiplegia, unspecified affecting right dominant side]Onset: 706333-04-5182TtugyuiDzcpzpwhc's disease (9 sources)Parkinson's disease; Translations: [Parkinson's disease]Onset: 246918-90-0725MqsqhrdUtexefrlt`s disease (3 sources)Parkinson`s disease; Translations: [Parkinson's disease with dyskinesia and fluctuating manifestations (HCC)]Onset: 95-91-3046Yikkupesp (except that caused by tuberculosis or sexually transmitted disease) (4 sources)Pneumonia; Translations: [Pneumonia, unspecified organism]03-02-2025 EpisodicResidual codes; unclassified (1 source)Insomnia, unspecified; Translations: [INSOMNIA UNSPECIFIED]Onset: 43-59-7305HrslgwvgAicazbbi codes; unclassified (12 sources)Altered mental status; Translations: [Altered mental status, unspecified]Onset: 72-52-5706CwajmcqdKqjkyehs codes; unclassified (1 source)Pain, unspecified; Translations: [Pain, unspecified]Onset: 10-29-2024 EpisodicResidual codes; unclassified (20 sources)Delirium; Translations: [Disorientation, unspecified]Onset: 554815-93-2981MwxapqrtVwdyldgb codes; unclassified (14 sources)Acute confusion; Translations: [Disorientation, unspecified] 14-57-4840TbeaizycHazsdfoh codes; unclassified (9 sources)Edema; Translations: [Edema, unspecified]Onset: EpisodicResidual codes; unclassified (12 sources)Bilateral lower limb edema; Translations: [Localized edema]Onset: 246142-31-5372EhtpvluaGcbcxcbo codes; unclassified (2 sources)Localized edema; Translations: [Localized edema]Onset: 03-23-2025 EpisodicRespiratory failure; insufficiency; arrest (adult) (1 source)Dependence on supplemental oxygen; Translations: [DEPENDENCE ON SUPPLEMENTAL OXYGEN]Onset: 96-88-8508BrorgdmDwiehac detachments; defects; vascular occlusion; and retinopathy (13 sources)Bilateral degeneration of macula; 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]Onset: 080603-41-8269JrkmxonFjlczfilvqm; intervertebral disc disorders; other back problems (10 sources)Other intervertebral disc degeneration, lumbar region; Translations: [Lumbar spondylosis]Onset: 197457-70-8647CeuwwkpJyjlpzckbpt; intervertebral disc disorders; other back problems (4 sources)Spinal stenosis in cervical region; Translations: [Spinal stenosis, cervical region]51-81-4120IxmrkzwgVpkgvxdyw-related disorders (1 source)Nicotine dependence, cigarettes, with other nicotine-induced disorders; Translations: [NICOTINE DEPENDENCE, CIGARETTES, W OTH DISORDERS] Onset: 77-31-8975EclxuvbTwnzpqlicyed (20 sources)Parkinson's disease; Translations: [Parkinson's disease without dyskinesia, without mention of fluctuations]Onset: 41-65-2025YitzqbfRqcvcnzoirjd (1 source)jail (current) use of oral hypoglycemic drugs; Translations: [SENIOR CARE (CURRENT) USE OF ORAL HYPOGLYCEMIC DRUGS]Onset: 08-11-2017 Unclassified (2 sources)Unknown / UNK(Unknown)Onset: 12-22-3518Xgmxfxroudtf (1 source)PERSONAL HISTORY OF COVID-19; Translations: [PERSONAL HISTORY OF COVID-19]Onset: 00-15-4646Yvzpujvawwpq (1 source)UNVACCINATED FOR COVID-19; Translations: [UNVACCINATED FOR COVID-19] Onset: 09-82-2243Yokpchucdmqu (1 source)CONTACT W/AND (SUSP) EXPOS COVID-19; Translations: [CONTACT W/AND (SUSP) EXPOS COVID-19]Onset: 24-70-0495Gccvpmyzugyx (3 sources)A [facility] screening has identified you as FRAIL or [...] Four Ways to Beat the Frailty Risk [email or web address]-jmdpojdftd/sgiu-hmpooq-hhls- kige-ne-bjcq-the-fra efna-srar59-64idcs12-79-2151Momwsqobboiz (1 source)Altered Mental Status - [place]vueOnset: 50-48-6916Ajerpdnzocoi (8 sources)Call office on Sunday to schedule follow-up with Neurology. Unclassified (8 sources)Follow-up with Pulmonology if neededUnclassified (12 sources)Centralized Scheduling will call you to schedule a outpatient stress testUnclassified (12 sources)Post hospital appointment. Please call to reschedule if needed. Unclassified (12 sources)6-8 weeks after you complete Stress testingUrinary tract infections (20 sources)Urinary tract infection, site not specified; Translations: [Urinary tract infectious disease]Onset: 03-31-2022 Resolved: 78-28-0633Ppmxesat Past or Other Problems Problem ClassificationProblemDateDocumented DateEpisodic/ChronicAbdominal hernia (9 sources)Incisional hernia; Translations: [Incisional hernia without obstruction or gangrene]Onset: 258508-04-9355EtvgopsuIdvut and unspecified renal failure (20 sources)Acute renal failure syndrome; Translations: [Acute kidney failure, unspecified]Onset: 08-20-2024 Resolved: 026225-29-4003YytppamrTzios bronchitis (1 source)Acute bronchitis, unspecified; Translations: [ACUTE BRONCHITIS UNSPECIFIED]Onset: 94-69-7052AokrzljlQmczn posthemorrhagic anemia (1 source)Acute posthemorrhagic anemia; Translations: [ACUTE POSTHEMORRHAGIC ANEMIA]Onset: 17-61-0701SlvhieqzIbcaqojjmtuobf/social admission (20 sources)Other reduced mobility; Translations: [Impaired mobility and activities of daily living]Onset: 577590-81-3308DwdcruvcXwzgpnodid pneumonitis; food/vomitus (20 sources)Aspiration pneumonia; Translations: [Pneumonitis due to inhalation of food and vomit]Onset: 290155-86-9522QmntjpvjItduwzjey and vision defects (13 sources)Visual hallucinations; Translations: [Visual hallucinations]Onset: 703478-59-9188ImonttpoFbhtvwjy of urinary tract (16 sources)Kidney stone; Translations: [Calculus of kidney]Onset: 02-20-2020 20-42-0953RlcspnjzPweqkvsi injury or internal injury (3 sources)Unspecified injury of spleen, initial encounter; Translations: [Major laceration of spleen, initialencounter]Onset: 60-36-5684ExgjuqjhLrdqp and electrolyte disorders (20 sources)Hypokalemia; Translations: [Dehydration]Onset: 69-20-1055Jxeybavr Immunizations and screening for infectious disease (1 source)Encounter for immunization; Translations: [ENCOUNTER FOR IMMUNIZATION] Onset: 44-39-6483WcwkrdncMepdgfainn obstruction without hernia (1 source)Ileus, unspecified; Translations: [ILEUS, UNSPECIFIED]Onset: 16-20-8496GdujfewjYlcqsv and vomiting (1 source)Nausea; Translations: [NAUSEA]Onset: 98-31-3889PnxvtbgaHocnpzimeeb chest pain (4 sources)Chest pain, unspecified; Translations: [CHEST PAIN UNSPECIFIED]Onset: 66-36-9932QaqfmppwZnyyjjcfllz deficiencies (20 sources)Cachexia; Translations: [Cachexia]Onset: EpisodicOther aftercare (2 sources)jail (current) use of aspirin; Translations: [CRAYON PAINTER (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) USE OF ASPIRIN]Onset: 48-44-7632LzrsjhhfByfaq aftercare (1 source)Other communication skills instructor (current) drug therapy; Translations: [OTH CRAYON PAINTER CURRENT DRUG THERAPY]Onset: 27-96-6581EpbpmjtzKmuxm connective tissue disease (18 sources)Abnormal posture; Translations: [Abnormal posture]Onset: 09-13-2023 85-76-2631EgmbpscdCivpq connective tissue disease (1 source)Muscle wasting and atrophy, not elsewhere classified, unspecified site; Translations: [Muscle wasting and atrophy, not elsewhere classified, unspecified site]Onset: 11-74-6388VuhzliruBhmhe diseases of kidney and ureters (15 sources)Kidney disease; Translations: [Disorder of kidney and ureter, unspecified]Onset: 07-06-2023 Resolved: 069842-76-0448EiklpxvvPgetz diseases of kidney and ureters (20 sources)Obstruction of pelviureteric junction; Translations: [Crossing vessel and stricture of ureter without hydronephrosis]Onset: 02-20-2020 32-54-5171UfmhqfovKmgpd diseases of kidney and ureters (16 sources)Stricture of ureter; Translations: [Crossing vessel and stricture of ureter without hydronephrosis]Onset: 478954-83-4054SlyyidipJvofg fractures (2 sources)Fracture of superior rim of left pubis, initial encounter for closed fracture; Translations: [Closed fracture of pubis]Onset: EpisodicOther hematologic conditions (1 source)Other specified abnormalities of plasma proteins; Translations: [OTH SPEC ABNORM PLASMA PROTEINS]Onset: 96-61-0216CnzhoumzKjxry lower respiratory disease (1 source)Acute pulmonary edema; Translations: [ACUTE PULMONARY EDEMA]Onset: 03-87-1115DhmjudueFaihw lower respiratory disease (1 source)Personal history of pneumonia (recurrent); Translations: [PERSONAL HX OF PNEUMONIA RECURRENT]Onset: 20-66-0077XrurqtlhXscjg nervous system disorders (4 sources)Ataxia, unspecified; Translations: [ATAXIA UNSPECIFIED]Onset: 42-11-2573GjclnsixDjtcs nervous system disorders (20 sources)Hyperreflexia; Translations: [Abnormal reflex]Onset: 09-13-2023 25-98-5626SxrhgcltTgxji nervous system disorders (20 sources)Ataxia; Translations: [Ataxia, unspecified]Onset: 10-25-2023 51-85-4353PdcianoxAtzde nervous system disorders (20 sources)Paresthesia; Translations: [Paresthesia of skin]Onset: 10-25-2023 57-56-7369DwbpbuaiYalge nutritional; endocrine; and metabolic disorders (1 source)Body mass index (BMI) 19.9 or less, adult; Translations: [BODY MASS INDEX 19.9 OR LESS ADULT]Onset: 18-89-8783XqkfmnhuBckpn screening for suspected conditions (not mental disorders or infectious disease) (14 sources)Blood chemistry abnormal; Translations: [Other specified abnormal findings of blood chemistry]Onset: 52-11-0380SquficynZidkbxeo codes; unclassified (1 source)Acquired absence of both cervix and uterus; Translations: [ACQUIRED ABSENCE BOTH CERVIX AND UTERUS]Onset: 98-46-2904AhpotsykZbboeemq codes; unclassified (1 source)Acquired absence of spleen; Translations: [ACQUIRED ABSENCE OF SPLEEN] Onset: 21-11-5488DrjouqrrVptgrjfa codes; unclassified (20 sources)Memory impairment; Translations: [Other amnesia]Onset: 09-13-2023 17-52-5364MvwdobhxOagepkdl codes; unclassified (4 sources)Altered mental status, unspecified; Translations: [Altered mental status]Onset: 653882-49-9195TgnxcwrzVcyhskrd codes; unclassified (1 source)Other specified health status; Translations: [Other specified health status]Onset: 12-55-0011EwslcezxZjzfarng codes; unclassified (1 source)Disorientation, unspecified; Translations: [Disorientation, unspecified]Onset: 73-47-7186HkladfxpDqwucslgvzk failure; insufficiency; arrest (adult) (14 sources)Acute respiratory failure with hypoxia; Translations: [Acute respiratory failure]Onset: 327778-66-5174ProhdmpsAceifvunp and history of mental health and substance abuse codes (1 source)Personal history of nicotine dependence; Translations: [PERSONAL HISTORY OF NICOTINE DEPEND]Onset: 61-43-7983EtzwinteHqvaoademz (except in labor) (4 sources)Sepsis, unspecified organism; Translations: [Severe sepsis without septic shock]Onset: 17-60-0894ViiuuscwNtdjjsxtuypj (1 source)Body mass index (BMI) 20.0-20.9, adult; Translations: [BODY MASS INDEX (BMI) 20.0-20.9, ADULT]Onset: 35-01-3489Vgmsduyb Results Test NameValueInterpretationReference RangeFacilityOffice Visiton 03-23-2025 Follow-up [id number] RhettJudith stoner Susan 1945 F Date Provider Department Center 03/23/2025 [id number], ADAM CARD [facility] Family History Problem Relation Age of Onset Stroke Mother Stroke Brother Other Mother's Sister Coronary artery disease Mother's Sister Stroke Maternal Grandmother Family Status - Relation Status Age at Mother Father Brother Mother's Sister Maternal Grandmother Level of Service:46633 RI OFFICE/OUTPATIENT ESTABLISHED MOD MDM 30 MIN Reason for Visit and Comments: Follow-up [437202] - Patient is here today for a 6 week follow appointment with labs. [facility] [place] [facility] [place]. Patient states she is still very weak and is now at the [facility]. Hyperlipidemia [182] Hypertension [368785] Congestive Heart Failure [127] Coronary Artery Disease [187]NormalPeoples HospitalBasic Metabolic Panelon 33-04-8634Ipbou gap [Moles/Vol]9.4 mmol/LNormal6.0-15.0The [facility] Physician GroupComment on above:Performed By: #### [id number], BMP ####[address] [place] [address] [place]#### PTHRP, VITD+D2+D3 ####[facility] ,Calcium [Mass/Vol]10.7 mg/dLHigh 8.6-10.3The [facility] Physician GroupComment on above:Performed By: #### [id number], BMP ####[facility] [place] [address] [place]#### PTHRP, VITD+D2+D3 ####[facility] ,Chloride [Moles/Vol] 107 mmol/KCdgycv44-635Jtl [facility] Physician GroupComment on above:Performed By: #### [id number], BMP ####[address] [place] [address] [place]#### PTHRP, VITD+D2+D3 ####[facility] ,CO2 [Moles/Vol]25.2 mmol/HZystkh79.0-31.0The [facility] Physician GroupComment on above:Performed By: #### [id number], BMP ####[address]#### PTHRP, VITD+D2+D3 ####[facility] ,Creatinine [Mass/Vol]1.17 mg/dLNormal0.60-1.20The [facility] Physician GroupComment on above:Performed By: #### [id number], BMP ####[address]#### PTHRP, VITD+D2+D3 ####[facility] ,Creatinine Clr Calc Gxgsapny07.08NormalThe [facility] Physician GroupComment on above:Performed By: #### [id number], BMP ####[address]#### PTHRP, VITD+D2+D3 ####[facility] ,GFR/1.73 sq M.predicted MDRD (S/P/Bld) [Vol rate/Area]47.467 mL/min/{1.73_m2}NormalThe [facility] Physician GroupComment on above:Performed By: #### [id number], BMP ####[address]#### PTHRP, VITD+D2+D3 ####[facility] ,Glucose [Mass/Vol]89 mg/dZTnlmbe41-363Bek [facility] Physician GroupComment on above:Result Comment: Random Glucose Reference Range is dependent on time and content of last meal. Glucose of more than 200 mg/dL in a nonstressed, ambulatory subject supports the diagnosis of Diabetes Mellitus. ADA recommended reference rangePerformed By: #### [id number], BMP ####[address] [place] [address] [place]#### PTHRP, VITD+D2+D3 ####[facility] ,Potassium [Moles/Vol]4.6 mmol/LNormal 3.5-5.1The [facility] Physician GroupComment on above:Performed By: #### [id number], BMP ####[address]#### PTHRP, VITD+D2+D3 ####[facility] ,Sodium [Moles/Vol]137 mmol/BGmpgsf591-208Oaa [facility] Physician GroupComment on above:Performed By: #### [id number], BMP ####[address]#### PTHRP, VITD+D2+D3 ####[facility] ,Urea nitrogen [Mass/Vol]27 mg/dLHigh7-25The [facility] Physician GroupComment on above: Performed By: #### [id number], BMP ####[address]#### PTHRP, VITD+D2+D3 ####[facility] , Complete Blood Count Auto Diffon 70-58-2935Dvspgjzcj (Bld) [#/Vol]0.1 10*3/uL Normal0.0-0.2The [facility] Hospital Physician GroupComment on above:Result Comment: PERFORMED BY:[address] [place], [place] [phone] MEDICAL LUÍS PIERSON M.D.Performed By: #### CBC ####[place] [address] USABasophils/100 WBC (Bld)1.7 %Normal.The [facility] Physician GroupComment on above:Performed By: #### CBC ####[place] [address] USAEosinophils (Bld) [#/Vol]0.5 10*3/uLHigh0.0-0.45The [facility] Physician GroupComment on above:Performed By: #### CBC ####[place] [address] USAEosinophils/100 WBC (Bld)8.2 %Normal.The [facility] Physician GroupComment on above:Performed By: #### CBC ####[place] [address] USAErythrocyte distribution width (RBC) [Ratio]14.6 %Aieyjv51.9-15.3The [facility] Physician GroupComment on above:Performed By: #### CBC ####[place] [address] USAHematocrit (Bld) [Volume fraction]39.6 %Nhbbfl59.0-46.4The [facility] Physician GroupComment on above:Performed By: #### CBC ####[place] [address] USAHemoglobin (Bld) [Mass/Vol]13.4 g/uXZqvyrn23.8-15.4 The [facility] Hospital Physician GroupComment on above:Performed By: #### CBC ####[place] [address] [place] Lymphocytes (Bld) [#/Vol]2.0 10*3/uLNormal1.00-4.8The [facility] Comment on above:Performed By: #### CBC ####[id number] USALymphocytes/100 WBC (Bld)30.2 %Normal.The [facility] Hospital Physician GroupComment on above:Performed By: #### CBC ####[place] [address] USAMCH (RBC) [Entitic mass]30.9 skGdwluz84.7-34.3The [facility] Physician GroupComment on above: Performed By: #### CBC ####[place] [address] USAMCV (RBC) [Entitic vol]91.4 qCFvmbvi86-223Wsd [facility] Physician GroupComment on above:Performed By: #### CBC ####[place] [address] USAMean Corpuscular HGB Conc33.8 g/kCNhulwl10.0-35.0The [facility] Physician GroupComment on above: Performed By: #### CBC ####[place] [address] USAMonocytes (Bld) [#/Vol]0.8 10*3/uLNormal0.0-0.8The [facility] Physician GroupComment on above:Performed By: #### CBC ####[place] [address] USAMonocytes/100 WBC (Bld)12.7 %Normal.The [facility] Physician GroupComment on above:Performed By: #### CBC ####[place] [address] USANeutrophils (Bld) [#/Vol]3.1 10*3/uLNormal1.8-7.7The [facility] Physician GroupComment on above:Performed By: #### CBC ####[place] [address] USANeutrophils/100 WBC (Bld)47.2 %Normal. The [facility] Physician GroupComment on above:Performed By: #### CBC ####[place] [address] USANRBC% 0.1 /100{WBC}Normal0-0.5The [facility] Physician GroupComment on above:Performed By: #### CBC ####[place] [address] USAPlatelet mean volume (Bld) [Entitic vol]9.7 fLNormal6.3-10.7The [facility] Physician GroupComment on above:Performed By: #### CBC ####[place] [address] USAPlatelets (Bld) [#/Vol]269 10*3/pLVvcwao406-649Aoz [facility] Physician GroupComment on above: Performed By: #### CBC ####[address] [address] USARBC (Bld) [#/Vol]4.33 10*6/uLNormal3.60-5.00The [facility] Physician GroupComment on above:Performed By: #### CBC ####[address] [address] USAWBC (Bld) [#/Vol]6.6 10*3/uLNormal3.8-11.6The [facility] Physician GroupComment on above:Performed By: #### CBC ####[address] [address] [facility]ENTERWhite Blood Count6.6 [CFU]/mLNormal3.8-11.6The [facility] Comment on above:Performed By: #### CBC ####[address] [address] USAParathyroid Hormone Related Pron 03-04-2025 Parathyroid Hormone Related Pr<2.0Normal.The [facility] Physician GroupComment on above:Result Comment: This test was developed and its performance characteristics determined by [facility]. It has not been cleared or approved by the Food and Drug Administration. Reference Range: All Ages: <2.0 The PTHrP assay should not be used to exclude cancer or screen tumor patients for humoral hypercalcemia of malignancy (HHM). The results should always be assessed in conjunction with the patient's medical history, clinical examination, and other findings. If test results are clinically discordant, please contact the laboratory. Performed at: [email or web address] [address] [place] [id number] Quality Cloth Tester: Henrietta Sagastume MD, Phone: [phone] BY:[address] [address] [place], [place] [phone] MEDICAL DIRECTORSHANON PIERSON M.D.Performed By: #### [id number], BMP ####[address] [address] [facility]#### PTHRP, VITD+D2+D3 ####[facility] ,Vitamin D 25 Hydroxy Totalon 84-30-2711Lrpxrga D 25 Hydroxy Ovsyq810.1 ng/jKAdco90-070Xle [facility] Physician GroupComment on above:Result Comment: VITAMIN D STATUS 25(OH)VITAMIN D RANGE (ng/mL) Deficient <20 Insufficient 20 to <30 Sufficient 30 to 100 Reference: Delfina MF,Diana MESSINA, Wero VERAS, et al. Evaluation,treatment, and prevention of vitamin D deficiency; an Endocrine Society clinical practice guideline.JCEM. 2010; 96(7):1911-30.PERFORMED BY:[address] [place], [place] [phone] MEDICAL DIRECTORSHANON PIERSON M.D.Performed By: #### [id number], BMP ####[address]#### PTHRP, VITD+D2+D3 ####[facility] ,Vitamin D 25 Hydroxy,Tot+D2+D3on 63-53-2204Xir Annie Vitamin D 25 OH74 ng/mLNormal.The [facility] Physician GroupComment on above:Result Comment: Reference Range: All Ages: Target levels 30 - 100Performed By: #### [id number], BMP ####[address]#### PTHRP, VITD+D2+D3 ####[facility] ,Vitamin D-2<1.0Normal.The [facility] Physician GroupComment on above:Result Comment: This test was developed and its performance characteristics determined by [facility]. It has not been cleared or approved by the Food and Drug Administration.Performed By: #### [id number], BMP ####[address]#### PTHRP, VITD+D2+D3 ####[facility] ,Vitamin D-374 ng/mLNormal.The [facility] Physician GroupComment on above:Result Comment: This test was developed and its performance characteristics determined by [facility]. It has not been cleared or approved by the Food and Drug Administration. Performed at: - [facility] [address] [place] [id number] Quality Cloth Tester: Henrietta Sagastume MD, Phone: [phone] BY:[address] [place], [place] [phone] MEDICAL DIRECTORSHANON PIERSON M.D.Performed By: #### [id number], BMP ####[address] [id number] [facility]#### PTHRP, VITD+D2+D3 ####[facility] ,Basic Metabolic Panelon 10-35-5369Hfkxg gap [Moles/Vol]11.6 mmol/LNormal6.0-15.0The [facility] Physician [facility] HospitalComment on above:Performed By: #### BMP, CBC ####[place] [address] USACalcium [Mass/Vol]10.5 mg/dLHigh8.6-10.3The [facility] Physician [facility] HospitalComment on above:Performed By: #### BMP, CBC ####[address] Chloride [Moles/Vol]106 mmol/YRvjjbm03-847Odh [facility] Physician [facility] HospitalComment on above:Performed By: #### BMP, CBC ####[address] USACO2 [Moles/Vol]24.0 mmol/DHfluqt04.0-31.0The [facility] Physician GroupComment on above:Performed By: #### BMP, CBC ####[address] [address] [facility] Creatinine [Mass/Vol]1.01 mg/dLNormal0.60-1.20The [facility] Comment on above:Performed By: #### BMP, CBC ####[address] USACreatinine Clr Calc Uxvntoau48.23 NormalThe [facility] Physician GroupComment on above:Result Comment: PERFORMED BY:[address] [address] [place], [place] [phone] MEDICAL DIRECTORSHANON PIERSON M.D.Performed By: #### BMP, CBC ####[id number] [place] GFR/1.73 sq M.predicted MDRD (S/P/Bld) [Vol rate/Area]56.627 mL/min/{1.73_m2} NormalThe [facility] Physician GroupComment on above:Performed By: #### BMP, CBC ####[address] USAGlucose [Mass/Vol]68 mg/rHCcu67-152Pnc [facility] Physician GroupComment on above:Result Comment: Random Glucose Reference Range is dependent on time and content of last meal. Glucose of more than 200 mg/dL in a nonstressed, ambulatory subject supports the diagnosis of Diabetes Mellitus. ADA recommended reference range Performed By: #### BMP, CBC ####[place] [address] USAPotassium [Moles/Vol]4.6 mmol/LNormal3.5-5.1The [facility] Physician GroupComment on above:Performed By: #### BMP, CBC ####[address] USASodium [Moles/Vol]137 mmol/MNidseh318-345Obx [facility] Physician GroupComment on above: Performed By: #### BMP, CBC ####[address] USAUrea nitrogen [Mass/Vol]21 mg/dLNormal7-25The [facility] Physician GroupComment on above:Performed By: #### BMP, CBC ####[address] [address] [facility] Complete Blood Count Auto Diffon 99-68-1534Quehryigx (Bld) [#/Vol]0.1 10*3/uL Normal0.0-0.2The [facility] Physician GroupComment on above:Result Comment: PERFORMED BY:[address] [place], [place] [phone] MEDICAL DIRECTORSHANON IPERSON M.D.Performed By: #### BMP, CBC ####[address] [address] USABasophils/100 WBC (Bld)1.5 %Normal.The [facility] Physician GroupComment on above:Performed By: #### BMP, CBC ####[address] [address] USAEosinophils (Bld) [#/Vol]0.5 10*3/uLHigh 0.0-0.45The [facility] Physician GroupComment on above:Performed By: #### BMP, CBC ####[address] [place] Eosinophils/100 WBC (Bld)7.3 %Normal.The [facility] Physician GroupComment on above:Performed By: #### BMP, CBC ####[address] [address] USAErythrocyte distribution width (RBC) [Ratio]14.7 % Imssht31.9-15.3The [facility] Physician GroupComment on above:Performed By: #### BMP, CBC ####[address] [address] USAHematocrit (Bld) [Volume fraction]39.1 %Tthjic60.0-46.4The [facility] Physician GroupComment on above:Performed By: #### BMP, CBC ####[address] [address] USAHemoglobin (Bld) [Mass/Vol]12.9 g/zXGcdaam42.8-15.4The [facility] Physician GroupComment on above: Performed By: #### BMP, CBC ####[address] [address] USALymphocytes (Bld) [#/Vol]1.9 10*3/uLNormal1.00-4.8 The [facility] Physician GroupComment on above:Performed By: #### BMP, CBC ####[address] Lymphocytes/100 WBC (Bld)28.1 %Normal.The [facility] Physician GroupComment on above:Performed By: #### BMP, CBC ####[address] (RBC) [Entitic mass]30.3 oxBlzsea29.7-34.3The [facility] Physician GroupComment on above:Performed By: #### BMP, CBC ####[address] (RBC) [Entitic vol]91.7 kUSunrfu02-617Wwu [facility] Physician GroupComment on above:Performed By: #### BMP, CBC ####[place] [address] USAMean Corpuscular HGB Conc33.0 g/gDDnatpv01.0-35.0The [facility] Physician GroupComment on above:Performed By: #### BMP, CBC ####[place] [address] [place] Monocytes (Bld) [#/Vol]0.9 10*3/uLHigh0.0-0.8The [facility] Comment on above:Performed By: #### BMP, CBC ####[place] [address] USAMonocytes/100 WBC (Bld)13.2 %Normal. The [facility] Physician GroupComment on above:Performed By: #### BMP, CBC ####[place] [address] [place] Neutrophils (Bld) [#/Vol]3.4 10*3/uLNormal1.8-7.7[facility] Comment on above:Performed By: #### BMP, CBC ####[place] [address] USANeutrophils/100 WBC (Bld)49.9 %Normal. The [facility] Physician GroupComment on above:Performed By: #### BMP, CBC ####[place] [id number] USANRBC% 0.1 /100{WBC}Normal0-0.5The [facility] Physician GroupComment on above:Performed By: #### BMP, CBC ####[place] [id number] USAPlatelet mean volume (Bld) [Entitic vol]10.4 fLNormal6.3-10.7The [facility] Physician GroupComment on above:Performed By: #### BMP, CBC ####[place] [id number] [place] Platelets (Bld) [#/Vol]270 10*3/jZNgisfs040-770Gsn [facility] Comment on above:Performed By: #### BMP, CBC ####[place] [id number] USARBC (Bld) [#/Vol]4.26 10*6/uLNormal 3.60-5.00The [facility] Physician GroupComment on above:Performed By: #### BMP, CBC ####[place] [id number] USAWBC (Bld) [#/Vol]6.7 10*3/uLNormal3.8-11.6The [facility] Physician GroupComment on above:Performed By: #### BMP, CBC ####[place] [id number] USAWhite Blood Count6.7 [CFU]/mLNormal3.8-11.6The [facility] Physician GroupComment on above:Performed By: #### BMP, CBC ####[place] [id number] [facility] Parathyroid Hormone [place] 21-84-7872Jcrggnrkjyi Hormone Czymxc03.3 pg/mL Yxmshe17-37Zma [facility] Physician GroupComment on above:Order Comment: Comment ADD ON to AM labsResult Comment: PERFORMED BY:[facility] [place], [place] [phone] MEDICAL DIRECTORSHANON PIERSON M.D.Performed By: #### PTH ####[place] [address] [place] [address] USAAlanine aminotransferase [Enzymatic activity/volume] in Serum or PlasmaOrdered By: Henrry Roche on 00-71-0116ZTY [Catalytic activity/Vol]U/LLow7-52Mount St. Mary HospitalComment on above:Performed By: #### CMP, HS TROP, CK, SCAN CBC ####[place] [address] [place] [address] USAAlbumin [Mass/volume] in Serum or Plasma by Bromocresol green (BCG) dye binding metho Ordered By: Henrry Roche on 69-06-0483Bceqkcg BCG dye [Mass/Vol]4.5 g/dL3.5-5.[address] [facility] HospitalAlkaline phosphatase [Enzymatic activity/volume] in Serum or PlasmaOrdered By: Henrry Roche on 20-09-7714PNE [Catalytic activity/Vol]129 U/HPowi91-033HmzikllrwMount St. Mary Hospital Comment on above:Performed By: #### CMP, HS TROP, CK, SCAN CBC ####[address] [address] USAAspartate aminotransferase [Enzymatic activity/volume] in Serum or PlasmaOrdered By: Henrry Roche on 76-37-5669NDE [Catalytic activity/Vol]9 U/BRwb96-73QnwbawbcwMount St. Mary HospitalComment on above:Performed By: #### CMP, HS TROP, CK, SCAN CBC ####[place] [place] [address] USABasic Metabolic Panelon 94-53-4306Fjrri gap [Moles/Vol]10.5 mmol/LNormal 6.0-15.0The [facility] Physician GroupComment on above:Performed By: #### BMP, SCAN CBC ####[address] [place] [address] USACalcium [Mass/Vol]10.5 mg/dLHigh8.6-10.3The [facility] Physician GroupComment on above:Performed By: #### BMP, SCAN CBC ####[address] [place] [address] USAChloride [Moles/Vol]108 mmol/GZjbz18-282Xcx [facility] Physician GroupComment on above:Performed By: #### BMP, SCAN CBC ####[address] [place] [address] USACO2 [Moles/Vol]24.6 mmol/IIxtydj77.0-31.0The [facility] Physician GroupComment on above:Performed By: #### BMP, SCAN CBC ####[place] [place] [address] USACreatinine [Mass/Vol]1.08 mg/dLNormal0.60-1.20 The [facility] Physician GroupComment on above:Performed By: #### BMP, SCAN CBC ####[place] [place] [address] [place] Creatinine Clr Calc Jgthnubz58.21NormalThe [facility] Physician GroupComment on above:Result Comment: PERFORMED BY:[address] [place], [place] [phone] MEDICAL DIRECTORSHANON PIERSON M.D.Performed By: #### BMP, SCAN CBC ####[place] [address] [place] [address] USAGFR/1.73 sq M.predicted MDRD (S/P/Bld) [Vol rate/Area]52.251 mL/min/{1.73_m2}NormalThe [facility] Hospital Physician GroupComment on above:Performed By: #### BMP, SCAN CBC ####[facility] [place] [address] USAGlucose [Mass/Vol]106 mg/oYRvpr29-452Atg [facility] Physician GroupComment on above:Result Comment: Random Glucose Reference Range is dependent on time and content of last meal. Glucose of more than 200 mg/dL in a nonstressed, ambulatory subject supports the diagnosis of Diabetes Mellitus. ADA recommended reference rangePerformed By: #### BMP, SCAN CBC ####[place] [place] [address] [place] Potassium [Moles/Vol]4.1 mmol/LNormal3.5-5.1The [facility] Physician GroupComment on above:Performed By: #### BMP, SCAN CBC ####[place] [place] [address] USASodium [Moles/Vol]139 mmol/LNormal 136-145The [facility] Physician GroupComment on above:Performed By: #### BMP, SCAN CBC ####[place] [phone] USAUrea nitrogen [Mass/Vol]21 mg/dLNormal7-25[facility] Comment on above:Performed By: #### BMP, SCAN CBC ####[place] [address] [place] [id number] USABasophils [#/volume] in Blood by Automated countOrdered By: Henrry Roche on 84-09-1751Djfkyleer (Bld) [#/Vol]0.1 10*3/uLNormal0.0-0.2FSCCI Hospital LimaComment on above:Performed By: #### CMP, HS TROP, CK, SCAN CBC ####[place] [phone] USABasophils/100 leukocytes in Blood by Automated countOrdered By: Henrry Roche on 00-94-9296Hxpjwcugj/100 WBC (Bld)1.0 %Normal. [facility] Mary HospitalComment on above:Performed By: #### CMP, HS TROP, CK, SCAN CBC ####[place] [phone] USABilirubin.total [Mass/volume] in Serum or PlasmaOrdered By: Henrry Roche on 92-00-6171Eizfgclva [Mass/Vol]0.5 mg/dLNormal0.3-1.0[facility] Mary HospitalComment on above:Performed By: #### CMP, HS TROP, CK, SCAN CBC ####[place] [phone] USABurr cells [Presence] in Blood by Light microscopyOrdered By: Henrry Roche on 96-80-3421Bvuf cells LM Ql (Bld)ModerateMount St. Mary HospitalCalcium [Mass/volume] in Serum or PlasmaOrdered By: Henrry Roche on 80-52-0139Pprwodj [Mass/Vol]11.6 mg/dLHigh8.6-10.3FSCCI Hospital LimaComment on above:Performed By: #### CMP, HS TROP, CK, SCAN CBC ####[address] [address] USACarbon dioxide, total [Moles/volume] in Serum or PlasmaOrdered By: Henrry Roche on 22-26-8728XE4 [Moles/Vol]25.9 mmol/CAifdui36.0-31.0[facility]. Mary HospitalComment on above:Performed By: #### CMP, HS TROP, CK, SCAN CBC ####[address] [address] USAChloride [Moles/volume] in Serum or PlasmaOrdered By: Henrry Roche on 58-92-6949Cbtvqcmz [Moles/Vol]106 mmol/TSctmpz57-202MmrqpzqemMount St. Mary HospitalComment on above:Performed By: #### CMP, HS TROP, CK, SCAN CBC ####[address] [address] USAComprehensive Metabolic Panelon 95-56-8272Ifytdcs [Mass/Vol]4.5 g/dLNormal3.5-5.7The [facility] Physician GroupComment on above: Performed By: #### CMP, HS TROP, CK, SCAN CBC ####[address] [address] USACreatinine Clr Calc Punkeozt59.47 NormalThe [facility] Hospital Physician GroupComment on above:Result Comment: PERFORMED BY:[address]ANNA [place], [place] [phone] MEDICAL LUÍS PIERSON M.D.Performed By: #### CMP, HS TROP, CK, SCAN CBC ####[address] [address] USAGFR/1.73 sq M.predicted MDRD (S/P/Bld) [Vol rate/Area]45.590 mL/min/{1.73_m2}NormalThe [facility] Physician GroupComment on above:Performed By: #### CMP, HS TROP, CK, SCAN CBC ####[place] [phone] USACreatine kinase [Enzymatic activity/volume] in Serum or PlasmaOrdered By: Henrry Roche on 44-07-1581BM [Catalytic activity/Vol]21 U/WOlo09-261AaqfiyijeMount St. Mary HospitalComment on above:Performed By: #### CMP, HS TROP, CK, SCAN CBC ####[place] [phone] USACreatinine [Mass/volume] in Serum or PlasmaOrdered By: Henrry Roche on 53-30-9029Wypmqrdvfn [Mass/Vol]1.21 mg/dLHigh0.60-1.[address] Mary HospitalComment on above:Performed By: #### CMP, HS TROP, CK, SCAN CBC ####[place] [id number] USAECG 12 lead ECGon 53-08-5153PIZ 12 lead ECGNormalThe [facility] Physician GroupEosinophils [#/volume] in Blood by Automated countOrdered By: Henrry Roche on 54-27-4056Yysrrrdnvhw (Bld) [#/Vol]0.5 10*3/uLHigh0.0-0.[address] Mary HospitalComment on above:Performed By: #### CMP, HS TROP, CK, SCAN CBC ####[place] [phone] USAEosinophils/100 leukocytes in Blood by Automated countOrdered By: Henrry Roche on 09-92-0006Ksgxdllzlym/100 WBC (Bld)7.2 %Normal.[facility]. Mary HospitalComment on above:Performed By: #### CMP, HS TROP, CK, SCAN CBC ####[place] [phone] USAErythrocyte distribution width [Ratio] by Automated countOrdered By: Henrry Roche on 23-00-9717Jrgpsdnwhoo distribution width (RBC) [Ratio]14.7 %Normal 11.9-15.3FSCCI Hospital LimaComment on above:Performed By: #### CMP, HS TROP, CK, SCAN CBC ####[facility] [address] [place] [address] USAErythrocyte morphology finding [Identifier] in Blood Ordered By: Henrry Roche on 16-65-1159EVN morphology finding Nom (Bld)N/A [facility]. Mary HospitalErythrocytes [#/volume] in Blood by Automated countOrdered By: Henrry Roche on 74-84-2383HDF (Bld) [#/Vol]4.38 10*6/uLNormal 3.60-5.00[facility]. Mary HospitalComment on above:Performed By: #### CMP, HS TROP, CK, SCAN CBC ####[facility] [address] [place] [address] USAGlomerular filtration rate [Volume Rate/Area] in Serum, Plasma or Blood by CreatinineOrdered By: Henrry Roche on 03-02-2025 Glomerular filtration rate [Volume Rate/Area] in Serum, Plasma or Blood by Bhyntarfzi20.590 mL/MinMount St. Mary HospitalGlucose [Mass/volume] in Serum or PlasmaOrdered By: Henrry Roche on 63-91-3538Nbteoed [Mass/Vol]98 mg/oEQiypmh25-177PqodoeyidMount St. Mary HospitalComment on above:ADA recommended reference rangeRandom Glucose Reference Range is dependent on time and content of last meal. Glucose of more than 200 mg/dL in a nonstressed, ambulatory subject supports the diagnosisof Diabetes Mellitus.Result Comment: Random Glucose Reference Range is dependent on time and content of last meal. Glucose of more than 200 mg/dL in a nonstressed, ambulatory subject supports the diagnosis of Diabetes Mellitus. ADA recommended reference rangePerformed By: #### CMP, HS TROP, CK, SCAN CBC ####[facility] [address] [place] [address] USAHematocrit [Volume Fraction] of Blood by Automated countOrdered By: Henrry Roche on 09-75-7232Kidgdkfpjw (Bld) [Volume fraction] 39.7 %Jyspao09.0-46.4FSCCI Hospital LimaComment on above:Performed By: #### CMP, HS TROP, CK, SCAN CBC ####[place] [address] USAHemoglobin [Mass/volume] in BloodOrdered By: Henrry Roche on 67-41-2969Usxrwoqxfb (Bld) [Mass/Vol]13.4 g/rTYphkij84.8-15.4FSCCI Hospital LimaComment on above:Performed By: #### CMP, HS TROP, CK, SCAN CBC ####[place] [address] [place] [address] USALeukocytes [#/volume] corrected for nucleated erythrocytes in Blood by Automated counOrdered By: Henrry Roche on 65-57-2006UVI corrected for nucl RBC Auto (Bld) [#/Vol]6.3 10*3/uL3.8-11.6FSCCI Hospital LimaLeukocytes [#/volume] in Blood by Automated countOrdered By: Henrry Roche on 03-02-2025 WBC (Bld) [#/Vol]6.3 10*3/uLNormal3.8-11.6FSCCI Hospital Lima Comment on above:Performed By: #### CMP, HS TROP, CK, SCAN CBC ####[place] [phone] USALymphocytes [#/volume] in Blood by Automated countOrdered By: Henrry Roche on 03-02-2025 Lymphocytes (Bld) [#/Vol]2.0 10*3/uLNormal1.00-4.8[facility]. Mary HospitalComment on above:Performed By: #### CMP, HS TROP, CK, SCAN CBC ####[facility] [place], [place] [address] [place] Lymphocytes/100 leukocytes in Blood by Automated countOrdered By: Henrry Roche on 30-44-8280Jiowwnowiai/100 WBC (Bld)31.7 %Normal.[facility]. Mary HospitalComment on above:Performed By: #### CMP, HS TROP, CK, SCAN CBC ####[facility] [place] [address] [facility] [Entitic mass] by Automated countOrdered By: Henrry Roche on 22-54-3007III (RBC) [Entitic mass]30.6 kzAfuvbe30.7-34.3FSCCI Hospital [facility]ima Comment on above:Performed By: #### CMP, HS TROP, CK, SCAN CBC ####[address] [address] [place] [address] [facility] Auto (RBC) [Mass/Vol]Ordered By: Henrry Roche on 05-48-0942SNFM (RBC) [Mass/Vol]33.8 g/dL 32.0-35.0[facility]. Mary HospitalMCV [Entitic volume] by Automated countOrdered By: Henrry Roche on 15-90-0899SLI (RBC) [Entitic vol]90.7 fLNormal 80-100[facility]. Mary HospitalComment on above:Performed By: #### CMP, HS TROP, CK, SCAN CBC ####[place] [phone] USAMonocyte distribution width [Entitic volume] in Blood by AutomatedOrdered By: Henrry Roche on 56-33-9876Ooeezsjd distribution width Auto (Bld) [Entitic vol]17.43 %0.00-20.00[facility] Mary HospitalMonocytes [#/volume] in Blood by Automated countOrdered By: Henrry Roche on 03-02-2025 Monocytes (Bld) [#/Vol]1.0 10*3/uLHigh0.0-0.8[facility] Comment on above:Performed By: #### CMP, HS TROP, CK, SCAN CBC ####[place] [phone] USAMonocytes/100 leukocytes in Blood by Automated countOrdered By: Henrry Roche on 03-02-2025 Monocytes/100 WBC (Bld)15.1 %Normal.[facility]. Mary HospitalComment on above:Performed By: #### CMP, HS TROP, CK, SCAN CBC ####[place] [id number] USANeutrophils [#/volume] in Blood by Automated countOrdered By: Henrry Roche on 09-85-9886Apciepbrvpg (Bld) [#/Vol]2.8 10*3/uLNormal1.8-7.7FSCCI Hospital LimaComment on above:Performed By: #### CMP, HS TROP, CK, SCAN CBC ####[facility] [address] [place] [address] USANeutrophils/100 leukocytes in Blood by Automated countOrdered By: Henrry Roche on 15-83-3368Lollmetlpci/100 WBC (Bld)45.0 %Normal.[facility]. Mary HospitalComment on above: Performed By: #### CMP, HS TROP, CK, SCAN CBC ####[facility] [address] [place] [address] USANo Panel InformationOrdered By: Henrry Roche on 54-22-6981Fpaxwror Creatinine Clearance (Chem25.47Mount St. Mary HospitalNucleated erythrocytes [Presence] in Blood by Automated count Ordered By: Henrry Roche on 89-63-1964Opauxdfzp RBC Auto Ql (Bld)0.1 /100{WBC} 0-0.5FSCCI Hospital LimaPlatelet adequacy [Presence] in Blood by Light microscopyOrdered By: Henrry Roche on 60-47-0420Hssqmjvoc LM Ql (Bld) NormalProtestant HospitalPlatelet mean volume [Entitic volume] in Blood by Automated countOrdered By: Henrry Roche on 03-02-2025 Platelet mean volume (Bld) [Entitic vol]9.5 fLNormal6.3-10.7FSCCI Hospital LimaComment on above:Performed By: #### CMP, HS TROP, CK, SCAN CBC ####[address] [address] [place] [id number] [facility] Platelet morphology finding [Identifier] in BloodOrdered By: Henrry Roche on 49-87-8312Nljgbfpq morphology finding Nom (Bld)N/AFSCCI Hospital LimaPlatelets Large [Presence] in Blood by Light microscopyOrdered By: Henrry Roche on 59-41-6838Zxewngyep Large LM Ql (Bld)SlightMount St. Mary HospitalPlatelets [#/volume] in Blood by Automated countOrdered By: Henrry Roche on 03-01-3322Xpsbqrspl (Bld) [#/Vol]274 10*3/rIEjcnef570-170FhemuhtgdMount St. Mary HospitalComment on above:Performed By: #### CMP, HS TROP, CK, SCAN CBC ####[address] [address] [facility] Poikilocytosis [Presence] in Blood by Light microscopyOrdered By: Henrry Roche on 04-75-0586Twwdcjkxzleruj LM Ql (Bld)[facility] Potassium [Moles/volume] in Serum or PlasmaOrdered By: Henrry Roche on 09-79-1365Jurulyucg [Moles/Vol]4.2 mmol/LNormal3.5-5.1FSCCI Hospital LimaComment on above:Performed By: #### CMP, HS TROP, CK, SCAN CBC ####[place] [address] USAProtein [Mass/volume] in Serum or PlasmaOrdered By: Henrry Roche on 64-07-2845Ejtqpmg [Mass/Vol]6.8 g/dLNormal6.4-8.9[facility]. Mary HospitalComment on above:Performed By: #### CMP, HS TROP, CK, SCAN CBC ####[address] [address] USAScan and CBCon 03-02-2025 AcanthocytesSlightHCA Florida Pasadena Hospital Physician GroupComment on above:Performed By: #### BMP, SCAN CBC ####[address] [address] USAAnisocytosis Ql (Bld)SlightHCA Florida Pasadena Hospital Physician GroupComment on above:Performed By: #### BMP, SCAN CBC ####[place] [phone] USABasophils (Bld) [#/Vol]0.0 10*3/uLNormal0.0-0.2The [facility] Physician GroupComment on above: Performed By: #### BMP, SCAN CBC ####[address] [address] USABasophils/100 WBC (Bld)0.3 %Normal.The [facility] Physician GroupComment on above:Performed By: #### BMP, SCAN CBC ####[address] [address] USAEosinophils (Bld) [#/Vol]0.5 10*3/uLHigh0.0-0.45The [facility] Physician GroupComment on above: Performed By: #### BMP, SCAN CBC ####[address] [address] USAEosinophils/100 WBC (Bld)7.4 %Normal.The [facility] Physician GroupComment on above:Performed By: #### BMP, SCAN CBC ####[address] [address] USAErythrocyte distribution width (RBC) [Ratio]14.6 %Nizpih39.9-15.3The [facility] Physician GroupComment on above:Performed By: #### BMP, SCAN CBC ####[address] [address] USAHematocrit (Bld) [Volume fraction]38.1 %Zuhhtg62.0-46.4The [facility] Physician GroupComment on above: Performed By: #### BMP, SCAN CBC ####[address] [address] USAHemoglobin (Bld) [Mass/Vol]12.8 g/gWQauarp48.8-15.4 The [facility] Physician GroupComment on above:Performed By: #### BMP, SCAN CBC ####[address] [address] USALarge PlateletsSlightNormalThe [facility] Hospital Physician GroupComment on above:Result Comment: PERFORMED BY:[address] [place], [place] [phone] MEDICAL LUÍS PIERSON M.D.Performed By: #### BMP, SCAN CBC ####[address] [address] USALymphocytes (Bld) [#/Vol]2.1 10*3/uLNormal1.00-4.8 The [facility] Physician GroupComment on above:Performed By: #### BMP, SCAN CBC ####[address] [address] [place] Lymphocytes/100 WBC (Bld)29.7 %Normal.The [facility] Physician GroupComment on above:Performed By: #### BMP, SCAN CBC ####[place] [phone] USAH (RBC) [Entitic mass]30.5 koYfmipw13.7-34.3 The [facility] Physician GroupComment on above:Performed By: #### BMP, SCAN CBC ####[address] [address] USAMCV (RBC) [Entitic vol]91.0 tEWqihwb02-887Yqr [facility] Physician GroupComment on above:Performed By: #### BMP, SCAN CBC ####[place] [phone] USAMean Corpuscular HGB Conc33.6 g/dLNormal 32.0-35.0The [facility] Physician GroupComment on above:Performed By: #### BMP, SCAN CBC ####[address] [address] USAMonocytes (Bld) [#/Vol]1.1 10*3/uLHigh0.0-0.8The [facility] Comment on above:Performed By: #### BMP, SCAN CBC ####[place] [id number] USAMonocytes/100 WBC (Bld)15.82 %Normal 0.00-20.00The [facility] Physician GroupComment on above:Performed By: #### BMP, SCAN CBC ####[place] [id number] USAMonocytes/100 WBC (Bld)16.4 %Normal.The [facility] Physician GroupComment on above:Performed By: #### BMP, SCAN CBC ####[address] [place] [address] USANeutrophils (Bld) [#/Vol]3.2 10*3/uLNormal 1.8-7.7The [facility] Physician GroupComment on above:Performed By: #### BMP, SCAN CBC ####[address] [address] USANeutrophils/100 WBC (Bld)46.2 %Normal.The [facility] Physician GroupComment on above:Performed By: #### BMP, SCAN CBC ####[address] [address] USANRBC%0.1 /100{WBC}Normal0-0.5The [facility] Physician GroupComment on above:Performed By: #### BMP, SCAN CBC ####[address] [address] USAOvalocytesSlight NormalBaptist Health Hospital Doral Physician GroupComment on above:Performed By: #### BMP, SCAN CBC ####[address] [address] [place] Platelet EstimateNormalNormalNormPalm Springs General Hospital Physician GroupComment on above:Performed By: #### BMP, SCAN CBC ####[address] [address] USAPlatelet mean volume (Bld) [Entitic vol]9.7 fL Normal6.3-10.7The [facility] Physician GroupComment on above:Performed By: #### BMP, SCAN CBC ####[address] [address] USAPlatelets (Bld) [#/Vol]256 10*3/tNBxkpzp202-630Zoj [facility] Physician GroupComment on above:Performed By: #### BMP, SCAN CBC ####[address] [address] USAPoikilocytosisSlightNormPalm Springs General Hospital Physician GroupComment on above:Performed By: #### BMP, SCAN CBC ####[address] [place] [address] [place] PolychromasiaSSelect Specialty Hospital [facility] Greensboro Physician GroupComment on above:Performed By: #### BMP, SCAN CBC ####[place] [id number] USARBC (Bld) [#/Vol]4.19 10*6/uLNormal3.60-5.00The [facility] Physician GroupComment on above:Performed By: #### BMP, SCAN CBC ####[place] [id number] [place] SchistocytesSlightHCA Florida Pasadena Hospital Physician GroupComment on above:Performed By: #### BMP, SCAN CBC ####[place] [id number] USAWBC (Bld) [#/Vol]7.0 10*3/uLNormal3.8-11.6The [facility] Physician GroupComment on above:Performed By: #### BMP, SCAN CBC ####[place] [address] USAWhite Blood Count7.0 [CFU]/mLNormal3.8-11.6The [facility] Physician [facility] HospitalComment on above:Performed By: #### BMP, SCAN CBC ####[place] [id number] USACrenated RBCModerateHCA Florida Pasadena Hospital Physician [facility] HospitalComment on above:Performed By: #### CMP, HS TROP, CK, SCAN CBC ####[place] [id number] USALarge PlateletsSlightHCA Florida Pasadena Hospital Physician GroupComment on above:Result Comment: PERFORMED BY:[address] [place], [place] [phone] MEDICAL DIRECTORSHANON PIERSON M.D.Performed By: #### CMP, HS TROP, CK, SCAN CBC ####[place] [id number] USAMean Corpuscular HGB Conc33.8 g/bEHiqmab18.0-35.0 The [facility] Physician GroupComment on above:Performed By: #### CMP, HS TROP, CK, SCAN CBC ####[place] [address] USAMonocytes/100 WBC (Bld)17.43 %Normal0.00-20.00The [facility] Physician GroupComment on above:Performed By: #### CMP, HS TROP, CK, SCAN CBC ####[place] [address] USANRBC% 0.1 /100{WBC}Normal0-0.5The [facility] Physician GroupComment on above:Performed By: #### CMP, HS TROP, CK, SCAN CBC ####[place] [address] USAPlatelet EstimateNormalNormalNoUNC Health Chatham Physician [facility] HospitalComment on above:Performed By: #### CMP, HS TROP, CK, SCAN CBC ####[place] [address] [place] PoikilocytosisModerateNormPalm Springs General Hospital Physician [facility] HospitalComment on above: Performed By: #### CMP, HS TROP, CK, SCAN CBC ####[place] [address] USAWhite Blood Count6.3 [CFU]/mLNormal 3.8-11.6The [facility] Physician [facility] HospitalComment on above:Performed By: #### CMP, HS TROP, CK, SCAN CBC ####[place] [address] USASerum globulin measurement by calculation (mass/volume)Ordered By: Henrry Roche on 38-61-2225Zbveeepp (S) [Mass/Vol]2.3 g/dLNoFairfield Medical CenterComment on above:Performed By: #### CMP, HS TROP, CK, SCAN CBC ####[place] [address] USASerum or plasma albumin/globulin mass ratioOrdered By: Henrry Roche on 21-53-4306Qfvgfjt/Globulin [Mass ratio]2.0 {ratio}[facility] HospitalComment on above:Performed By: #### CMP, HS TROP, CK, SCAN CBC ####[address] [address] USASerum or plasma anion gap determinationOrdered By: Henrry Roche on 76-55-8538Zujzr gap [Moles/Vol]10.3 mmol/LNormal6.0-15.0[facility]. Mary HospitalComment on above:Performed By: #### CMP, HS TROP, CK, SCAN CBC ####[address] [address] USASodium [Moles/volume] in Serum or PlasmaOrdered By: Henrry Roche on 36-65-1908Fbmvfh [Moles/Vol]138 mmol/L Yttsgs156-107BoswixjypMount St. Mary HospitalComment on above:Performed By: #### CMP, HS TROP, CK, SCAN CBC ####[address] [address] USATroponin I High Sensitivityon 01-37-9708Bohqijmz I High Kkxffudmjmx29Aqon6-12Wnj [facility] Physician GroupComment on above:Result Comment: The Troponin units of report have been changed to meet the Chest Pain Accreditationrequirement, element EC5.M1l2. Troponin units are changed from pg/ml to ng/L. Also, the decimal is removed and results are in whole numbers.PERFORMED BY:[address] [place], [place] [phone] MEDICAL LUÍS PIERSON M.D.Performed By: #### CMP, HS TROP, CK, SCAN CBC ####[address] [address] USATroponin I.cardiac [Mass/volume] in Serum or Plasma by Detection limit <= 0.01 ng/mLOrdered By: Henrry Roche on 34-12-8209Pfgunxyl I.cardiac DL <= 0.01 ng/mL [Mass/Vol]41 ng/LHigh0-15Mount St. Mary HospitalComment on above:The Troponin units of report have been changed to meet the Chest Pain Accreditation requirement, element EC5.M1l2. Troponin units are changed from pg/ml to ng/L. Also, the decimal is removed and results are in whole numbers.Urea nitrogen [Mass/volume] in Serum or PlasmaOrdered By: Henrry Roche on 60-70-4295Rlqy nitrogen [Mass/Vol]24 mg/dLNormal01-02Mount St. Mary HospitalComment on above:Performed By: #### CMP, HS TROP, CK, SCAN CBC ####[facility] [address] [place] [address] USAXR chest 1V portableon [id number] chest 1V portableNoUNC Health Chatham Physician GroupLaboratory - Chemistry and Chemistry - challengeOrdered By: Jacquelyn Segal on 19-46-9086Fidtfkfwa Ql (U)[facility] HospitalGlucose (U) [Mass/Vol]NegativeMount St. Mary HospitalKetones Ql (U)Negative [facility] Mary HospitalpH (U)6.0 [pH][facility] Specific gravity (U) [Rel density]1.025[facility] Urobilinogen (U) [Mass/Vol]0.2 mg/dLMount St. Mary HospitalLaboratory - Specimen informationOrdered By: Jacquelyn Segal on 08-84-1521Jxhjbjzxnm (U)clear [facility] Mary HospitalColor (U)yellowMount St. Mary HospitalLaboratory - UrinalysisOrdered By: Jacquelyn Segla on 20-76-6074Szwoauvsd esterase Test strip Ql (U)largeMount St. Mary HospitalNitrite Ql (U) [facility] HospitalProtein Ql (U)traceMount St. Mary HospitalNo Panel InformationOrdered By: Jacquelyn Segal on 23-32-8634Lvpyu Occult BloodNegativeMount St. Mary HospitalUrine Cultureon 02-27-2025 Bacteria identified Cx Nom (U)NormalThe [facility] Physician GroupComment on above:Performed By: #### CUU ####[facility] [address] [place] [address] USAUrine cultureOrdered By: Jacquelyn Segal on 02-27-2025 Bacteria identified Cx Nom (U)Pseudomonas aeruginosaAbnoFairfield Medical Center29on [id number] by: TONY BERRY on: 01/07/2025 01:07 PM Modules accepted: OrdersNormalUniversOhio State East HospitalOffice Visiton [id number]-up [id number] EmeryDonatoJudith A 1945 F Date Provider Department Center 01/06/2025 [id number], ADAM CARD [facility] Family History Problem Relation Age of Onset Stroke Mother Stroke Brother Other Mother's Sister Coronary artery disease Mother's Sister Stroke Maternal Grandmother Family Status - Relation Status Age at Mother Brother Mother's Sister Maternal Grandmother Level of Service:47966 [place] OFFICE/OUTPATIENT NEW MODERATE MDM 45 MINUTESNoal Peoples HospitalCNOVon 70-40-7757AGCZZidoeo Visit (NREUS2) JUDITH LAND ([id number]) 1945 F Date Time Provider Department 12/29/24 [...] Parkinson's Disease Exercise Class at your local [facility] Voice - The Parkinson Voice Project makes [...] you need assistance with scheduling, please call [phone], option 2 to speak with one of [...] by mouth four time (more content not included)...NormalNew[facility] Metabolic Panelon 37-67-8557Mlvdf gap [Moles/Vol]9.0 mmol/LNormal6.0-15.0The [facility] Hospital Physician GroupComment on above:Performed By: #### DIFF CBC, BMP ####[facility] [address] [place] [address] USACalcium [Mass/Vol]10.0 mg/dLNormal8.6-10.3The [facility] Hospital Physician GroupComment on above:Performed By: #### DIFF CBC, BMP ####[address] [place] [address] USAChloride [Moles/Vol]111 mmol/XUthw50-663Kmd [facility] Physician GroupComment on above:Performed By: #### DIFF CBC, BMP ####[address] [address] USACO2 [Moles/Vol]24.9 mmol/GGjdurv53.0-31.0The [facility] Hospital Physician GroupComment on above:Performed By: #### DIFF CBC, BMP ####[address] [place] [address] USACreatinine [Mass/Vol]0.98 mg/dLNormal0.60-1.20 The [facility] Hospital Physician GroupComment on above:Performed By: #### DIFF CBC, BMP ####[address] [address] [place] Creatinine Clr Calc Favnuzpr88.54NormalThe [facility] Physician [facility] HospitalComment on above:Result Comment: PERFORMED BY:[address] [place], [place] [phone] MEDICAL DIRECTORSHANON PIERSON M.D.Performed By: #### DIFF CBC, BMP ####[address] [place] [address] USAGFR/1.73 sq M.predicted MDRD (S/P/Bld) [Vol rate/Area]59.079 mL/min/{1.73_m2}NormalThe [facility] Physician [facility] HospitalComment on above:Performed By: #### DIFF CBC, BMP ####[address] [address] USAGlucose [Mass/Vol]94 mg/jXGjpgxz93-335Ayw [facility] Physician [facility] HospitalComment on above:Result Comment: Random Glucose Reference Range is dependent on time and content of last meal. Glucose of more than 200 mg/dL in a nonstressed, ambulatory subject supports the diagnosis of Diabetes Mellitus. ADA recommended reference rangePerformed By: #### DIFF CBC, BMP ####[address] [address] [facility] Potassium [Moles/Vol]3.9 mmol/LNormal3.5-5.1The [facility] Hospital Physician GroupComment on above:Performed By: #### DIFF CBC, BMP ####[address] [address] USASodium [Moles/Vol]141 mmol/LNormal 136-145The [facility] Hospital Physician GroupComment on above:Performed By: #### DIFF CBC, BMP ####[address] [address] USAUrea nitrogen [Mass/Vol]25 mg/dLNormal7-e [facility] Comment on above:Performed By: #### DIFF CBC, BMP ####[address] [address] USADiff and CBCon 74-28-6302Ychxghiqgouf SlightNoUNC Health Chatham Physician GroupComment on above:Performed By: #### DIFF CBC, BMP ####[address] [address] USABasophils/100 WBC (Bld)2 %Normal0-2The [facility] Hospital Physician GroupComment on above:Performed By: #### DIFF CBC, BMP ####[address] [address] USACrenated RBCModerateNoUNC Health Chatham Physician [facility] HospitalComment on above:Performed By: #### DIFF CBC, BMP ####[address] [address] [place] Eosinophils/100 WBC (Bld)6 %High1-3The [facility] Hospital Physician GroupComment on above:Performed By: #### DIFF CBC, BMP ####[address] [address] USAErythrocyte distribution width (RBC) [Ratio] 14.5 %Tmvfqc37.9-15.3The [facility] Hospital Physician GroupComment on above:Performed By: #### DIFF CBC, BMP ####[address] [address] USAGiant Platelet Tally20 /100{WBC}NormalThe [facility] Comment on above:Performed By: #### DIFF CBC, BMP ####[address] [address] USAHematocrit (Bld) [Volume fraction] 35.6 %Yhspxv27.0-46.4The [facility] Hospital Physician GroupComment on above:Performed By: #### DIFF CBC, BMP ####[address] [address] USAHemoglobin (Bld) [Mass/Vol]11.8 g/tAApdjzy20.8-15.4The [facility] Hospital Physician GroupComment on above:Performed By: #### DIFF CBC, BMP ####[address] [address] USALarge Platelets ModerateNormalThe [facility] Hospital Physician GroupComment on above:Result Comment: PERFORMED BY:[address] [place], [place] [phone] MEDICAL DIRECTORSHANON PIERSON M.D.Performed By: #### DIFF CBC, BMP ####[address] [address] USALymphocytes/100 WBC (Bld)28 %Xbpifi32-00Dwt [facility] Physician GroupComment on above:Performed By: #### DIFF CBC, BMP ####[address] [address] USAMCH (RBC) [Entitic mass]31.2 gcCsmmsg70.7-34.3The [facility] Hospital Physician GroupComment on above:Performed By: #### DIFF CBC, BMP ####[address] [address] USAMCV (RBC) [Entitic vol]94.2 yICjyvxp56-420Tvg [facility] Physician GroupComment on above:Performed By: #### DIFF CBC, BMP ####[address] [address] USAMean Corpuscular HGB Conc33.1 g/vAIbrdhb86.0-35.0The [facility] Hospital Physician GroupComment on above:Performed By: #### DIFF CBC, BMP ####[address] [address] USAMonocytes/100 WBC (Bld)11 %Normal2-11The [facility] Comment on above:Performed By: #### DIFF CBC, BMP ####[address] [address] USAPlatelet EstimateNormalNormalNoUNC Health Chatham Physician GroupComment on above:Performed By: #### DIFF CBC, BMP ####[address] [address] [place] Platelet mean volume (Bld) [Entitic vol]10.3 fLNormal6.3-10.7The [facility] Hospital Physician GroupComment on above:Performed By: #### DIFF CBC, BMP ####[address] [address] USAPlatelets (Bld) [#/Vol]257 10*3/aQJhqmfv903-302Zrb [facility] Physician GroupComment on above: Performed By: #### DIFF CBC, BMP ####[address] [address] USAPoikilocytosisModerateNormPalm Springs General Hospital Physician GroupComment on above:Performed By: #### DIFF CBC, BMP ####[address] [address] USARBC (Bld) [#/Vol]3.78 10*6/uL Normal3.60-5.00The [facility] Hospital Physician GroupComment on above:Performed By: #### DIFF CBC, BMP ####[address] [address] USAReactive Lymphocytes1 %Normal0-12The [facility] Hospital Physician GroupComment on above:Performed By: #### DIFF CBC, BMP ####[address] [address] USASegmented neutrophils/100 WBC (Bld)52 %Normal 50-70The [facility] Hospital Physician GroupComment on above:Performed By: #### DIFF CBC, BMP ####[address] [place] [address] USAWBC (Bld) [#/Vol]8.7 10*3/uLNormal3.8-11.6The [facility] Hospital Physician GroupComment on above:Performed By: #### DIFF CBC, BMP ####[address] [address] USAWhite Blood Count8.7 [CFU]/mLNormal3.8-11.6The [facility] Hospital Physician GroupComment on above:Performed By: #### DIFF CBC, BMP ####[address] [address] USABasic Metabolic Panelon 41-82-3772Agwqb gap [Moles/Vol]13.9 mmol/LNormal6.0-15.0The [facility] Hospital Physician GroupComment on above:Performed By: #### BMP, SCAN CBC ####[address] [address] USACalcium [Mass/Vol]10.6 mg/dLHigh8.6-10.3The [facility] Hospital Physician GroupComment on above: Performed By: #### BMP, SCAN CBC ####[address] [address] USAChloride [Moles/Vol]110 mmol/BOnph99-155Pmn [facility] Physician GroupComment on above:Performed By: #### BMP, SCAN CBC ####[address] [address] USACO2 [Moles/Vol]21.8 mmol/YWbjrft58.0-31.0The [facility] Physician GroupComment on above:Performed By: #### BMP, SCAN CBC ####[address] [address] USACreatinine [Mass/Vol]1.26 mg/dLHigh0.60-1.20 The [facility] Physician GroupComment on above:Performed By: #### BMP, SCAN CBC ####[address] [address] [place] Creatinine Clr Calc Wzrvuhho17.85NormalThe [facility] Physician GroupComment on above:Result Comment: PERFORMED BY:[address] [place], [place] [phone] MEDICAL DIRECTORSHANON PIERSON M.D.Performed By: #### BMP, SCAN CBC ####[address] [place] [address] USAGFR/1.73 sq M.predicted MDRD (S/P/Bld) [Vol rate/Area]43.698 mL/min/{1.73_m2}NormalThe [facility] Physician GroupComment on above:Performed By: #### BMP, SCAN CBC ####[address] [place] [address] USAGlucose [Mass/Vol]56 mg/yTMdz22-767Unc [facility] Physician GroupComment on above:Result Comment: Random Glucose Reference Range is dependent on time and content of last meal. Glucose of more than 200 mg/dL in a nonstressed, ambulatory subject supports the diagnosis of Diabetes Mellitus. ADA recommended reference rangePerformed By: #### BMP, SCAN CBC ####[address] [place] [address] [place] Potassium [Moles/Vol]3.7 mmol/LNormal3.5-5.1The [facility] Physician GroupComment on above:Performed By: #### BMP, SCAN CBC ####[address] [address] USASodium [Moles/Vol]142 mmol/LNormal 136-145The [facility] Physician GroupComment on above:Performed By: #### BMP, SCAN CBC ####[facility] [place] [address] USAUrea nitrogen [Mass/Vol]31 mg/dLHigh7-25The [facility] Physician GroupComment on above:Performed By: #### BMP, SCAN CBC ####[address] [address] USAMR head/brain wo conon 55-10-3520QX head/brain wo conNormalThe [facility] Physician GroupScan and CBCon 12-17-2024 AcanthocytesSlightNormPalm Springs General Hospital Physician GroupComment on above:Performed By: #### BMP, SCAN CBC ####[address] [address] USABasophils (Bld) [#/Vol]0.3 10*3/uLHigh0.0-0.2The [facility] Physician GroupComment on above:Performed By: #### BMP, SCAN CBC ####[id number] [place] Basophils/100 WBC (Bld)3.5 %Normal.The [facility] Physician GroupComment on above:Performed By: #### BMP, SCAN CBC ####[phone] USACrenated RBCSlightNormalThBingham Memorial Hospital Physician GroupComment on above:Performed By: #### BMP, SCAN CBC ####[place] [address] USAEosinophils (Bld) [#/Vol]0.3 10*3/uLNormal0.0-0.45The [facility] Physician GroupComment on above: Performed By: #### BMP, SCAN CBC ####[phone] USAEosinophils/100 WBC (Bld)3.4 %Normal.The [facility] Physician GroupComment on above:Performed By: #### BMP, SCAN CBC ####[place] [address] USAErythrocyte distribution width (RBC) [Ratio]14.6 %Byrjdd98.9-15.3The [facility] Hospital Physician GroupComment on above:Performed By: #### BMP, SCAN CBC ####[place] [address] USAHematocrit (Bld) [Volume fraction]33.4 %Low34.0-46.4The [facility] Hospital Physician GroupComment on above: Performed By: #### BMP, SCAN CBC ####[place] [address] USAHemoglobin (Bld) [Mass/Vol]11.1 g/dLLow11.8-15.4The [facility] Physician GroupComment on above:Performed By: #### BMP, SCAN CBC ####[address] [address] USALarge PlateletsSlightNormalThe [facility] Physician GroupComment on above:Result Comment: PERFORMED BY:[address] [place], [place] [phone] MEDICAL LUÍS PIERSON M.D.Performed By: #### BMP, SCAN CBC ####[address] [address] USALymphocytes (Bld) [#/Vol]2.3 10*3/uLNormal1.00-4.8 The [facility] Hospital Physician GroupComment on above:Performed By: #### BMP, SCAN CBC ####[id number] [place] Lymphocytes/100 WBC (Bld)27.2 %Normal.The [facility] Physician GroupComment on above:Performed By: #### BMP, SCAN CBC ####[address] [address] USAMCH (RBC) [Entitic mass]31.9 ffSlcmaf11.7-34.3 The [facility] Hospital Physician GroupComment on above:Performed By: #### BMP, SCAN CBC ####[address] [address] USAMCV (RBC) [Entitic vol]95.6 yWTpdxuj88-122Yzk [facility] Physician GroupComment on above:Performed By: #### BMP, SCAN CBC ####[address] [address] USAMean Corpuscular HGB Conc33.4 g/dLNormal 32.0-35.0The [facility] Physician GroupComment on above:Performed By: #### BMP, SCAN CBC ####[address] [address] USAMonocytes (Bld) [#/Vol]1.1 10*3/uLHigh0.0-0.8The [facility] Comment on above:Performed By: #### BMP, SCAN CBC ####[address] [address] USAMonocytes/100 WBC (Bld)13.1 %Normal. The [facility] Hospital Physician GroupComment on above:Performed By: #### BMP, SCAN CBC ####[id number] [place] Neutrophils (Bld) [#/Vol]4.4 10*3/uLNormal1.8-7.7The [facility] Comment on above:Performed By: #### BMP, SCAN CBC ####[id number] USANeutrophils/100 WBC (Bld)52.8 %Normal .The [facility] Hospital Physician GroupComment on above:Performed By: #### BMP, SCAN CBC ####[id number] USANRBC% 0.2 /100{WBC}Normal0-0.5The [facility] Physician GroupComment on above:Performed By: #### BMP, SCAN CBC ####[address] [address] USAOvalocytesSlightNormalThBingham Memorial Hospital Physician [facility] Comment on above:Performed By: #### BMP, SCAN CBC ####[address] [address] USAPlatelet EstimateNormalNormalNormal The [facility] Physician GroupComment on above:Performed By: #### BMP, SCAN CBC ####[address] [address] [place] Platelet mean volume (Bld) [Entitic vol]9.6 fLNormal6.3-10.7The [facility] Physician GroupComment on above:Performed By: #### BMP, SCAN CBC ####[address] [address] USAPlatelets (Bld) [#/Vol]231 10*3/wLCxmedb602-916Ukj [facility] Physician GroupComment on above: Performed By: #### BMP, SCAN CBC ####[address] [address] USAPoikilocytosisSlightNormalThe [facility] Physician GroupComment on above:Performed By: #### BMP, SCAN CBC ####[address] [address] USARBC (Bld) [#/Vol]3.50 10*6/uL Low3.60-5.00The [facility] Physician GroupComment on above:Performed By: #### BMP, SCAN CBC ####[address] [address] USAWBC (Bld) [#/Vol]8.3 10*3/uLNormal3.8-11.6The [facility] Comment on above:Performed By: #### BMP, SCAN CBC ####[place] [address] USAWhite Blood Count8.3 [CFU]/mLNormal 3.8-11.6The [facility] Physician GroupComment on above:Performed By: #### BMP, SCAN CBC ####[place] [address] USABasic Metabolic Panelon 96-12-4629Bamfc gap [Moles/Vol]16.5 mmol/LHigh 6.0-15.0The [facility] Physician GroupComment on above:Performed By: #### BMP, PHOS, LIPID, DIFF CBC ####[address] [address] USACalcium [Mass/Vol]11.4 mg/dLHigh8.6-10.3The [facility] Physician GroupComment on above:Performed By: #### BMP, PHOS, LIPID, DIFF CBC ####[id number] [place] Chloride [Moles/Vol]106 mmol/HUbakkq77-485Yea [facility] Physician GroupComment on above:Performed By: #### BMP, PHOS, LIPID, DIFF CBC ####[place] [address] USACO2 [Moles/Vol]22.0 mmol/L Yekmkz95.0-31.0The [facility] Physician GroupComment on above:Performed By: #### BMP, PHOS, LIPID, DIFF CBC ####[place] [address] USACreatinine [Mass/Vol]1.48 mg/dLHigh0.60-1.20The [facility] Physician GroupComment on above:Performed By: #### BMP, PHOS, LIPID, DIFF CBC ####[place] [address] USACreatinine Clr Calc Ibrstbnb04.98NormalThBingham Memorial Hospital Physician GroupComment on above:Performed By: #### BMP, PHOS, LIPID, DIFF CBC ####[place] [address] USAGFR/1.73 sq M.predicted MDRD (S/P/Bld) [Vol rate/Area]36.024 mL/min/{1.73_m2}NormalThe [facility] Physician GroupComment on above:Performed By: #### BMP, PHOS, LIPID, DIFF CBC ####[place] [address] USAGlucose [Mass/Vol]70 mg/qLFhxkza43-537Kaw [facility] Physician GroupComment on above: Result Comment: Random Glucose Reference Range is dependent on time and content of last meal. Glucose of more than 200 mg/dL in a nonstressed, ambulatory subject supports the diagnosis of Diabetes Mellitus. ADA recommended reference rangePerformed By: #### BMP, PHOS, LIPID, DIFF CBC ####[id number] USAPotassium [Moles/Vol]4.5 mmol/LNormal3.5-5.1The [facility] Physician GroupComment on above:Performed By: #### BMP, PHOS, LIPID, DIFF CBC ####[id number] USASodium [Moles/Vol]140 mmol/LWfjntj430-605Ylq [facility] Physician GroupComment on above:Performed By: #### BMP, PHOS, LIPID, DIFF CBC ####[address] [address] USAUrea nitrogen [Mass/Vol]27 mg/dLHigh7-25The [facility] Physician GroupComment on above:Performed By: #### BMP, PHOS, LIPID, DIFF CBC ####[id number] USADiff and CBCon 12-16-2024 AcanthocytesSlightNormalThe [facility] Physician GroupComment on above:Performed By: #### BMP, PHOS, LIPID, DIFF CBC ####[id number] USABasophils/100 WBC (Bld)2 %Normal0-2The [facility] Physician GroupComment on above:Performed By: #### BMP, PHOS, LIPID, DIFF CBC ####[id number] [place] Eosinophils/100 WBC (Bld)2 %Normal1-3The [facility] Physician GroupComment on above:Performed By: #### BMP, PHOS, LIPID, DIFF CBC ####[id number] USAErythrocyte distribution width (RBC) [Ratio]14.5 %Kawhwa43.9-15.3The [facility] Physician GroupComment on above:Performed By: #### BMP, PHOS, LIPID, DIFF CBC ####[id number] USAGiant Platelet Tally13 /100{WBC}NormalThe [facility] Physician GroupComment on above:Performed By: #### BMP, PHOS, LIPID, DIFF CBC ####[id number] USAHematocrit (Bld) [Volume fraction]37.5 %Normal 34.0-46.4The [facility] Physician GroupComment on above:Performed By: #### BMP, PHOS, LIPID, DIFF CBC ####[address] [address] USAHemoglobin (Bld) [Mass/Vol]12.5 g/iQZauifv10.8-15.4The [facility] Physician GroupComment on above:Performed By: #### BMP, PHOS, LIPID, DIFF CBC ####[address] [address] USALarge PlateletsSlightNormalThe [facility] Physician GroupComment on above: Result Comment: PERFORMED BY:[address] [place], [place] [phone] MEDICAL DIRECTORSHANON PIERSON M.D.Performed By: #### BMP, PHOS, LIPID, DIFF CBC ####[id number] USALymphocytes/100 WBC (Bld)32 %Normal 18-42The [facility] Physician GroupComment on above:Performed By: #### BMP, PHOS, LIPID, DIFF CBC ####[id number] [facility] (RBC) [Entitic mass]31.5 bwDpqxmw22.7-34.3The [facility] Physician GroupComment on above:Performed By: #### BMP, PHOS, LIPID, DIFF CBC ####[id number] [facility] (RBC) [Entitic vol]94.8 qVQcpzss82-230Qen [facility] Physician GroupComment on above:Performed By: #### BMP, PHOS, LIPID, DIFF CBC ####[id number] USAMean Corpuscular HGB Conc33.2 g/zULuybbv57.0-35.0The [facility] Physician GroupComment on above:Performed By: #### BMP, PHOS, LIPID, DIFF CBC ####[id number] USAMonocytes/100 WBC (Bld)10 %Normal2-11The [facility] Physician GroupComment on above:Performed By: #### BMP, PHOS, LIPID, DIFF CBC ####[address] [address] [place] OvalocytesSlightNormPalm Springs General Hospital Physician GroupComment on above:Performed By: #### BMP, PHOS, LIPID, DIFF CBC ####[address] [address] USAPlasma Cells1 %High0-0The [facility] Physician [facility] Comment on above:Performed By: #### BMP, PHOS, LIPID, DIFF CBC ####[address] [address] USAPlatelet Estimate NormalNormalNormPalm Springs General Hospital Physician [facility] HospitalComment on above:Performed By: #### BMP, PHOS, LIPID, DIFF CBC ####[address] [address] USAPlatelet mean volume (Bld) [Entitic vol]9.9 fLNormal 6.3-10.7The [facility] Physician GroupComment on above:Performed By: #### BMP, PHOS, LIPID, DIFF CBC ####[address] [address] USAPlatelet MorphologyNormalNormalHCA Florida [facility] Physician [facility] HospitalComment on above:Performed By: #### BMP, PHOS, LIPID, DIFF CBC ####[address] [address] [place] Platelets (Bld) [#/Vol]276 10*3/bTIdfdzn065-781Fqt [facility] Physician [facility] Comment on above:Performed By: #### BMP, PHOS, LIPID, DIFF CBC ####[address] [address] USAPoikilocytosisSlight NormalThe [facility] Physician GroupComment on above:Performed By: #### BMP, PHOS, LIPID, DIFF CBC ####[address] [address] USARBC (Bld) [#/Vol]3.96 10*6/uLNormal3.60-5.00The [facility] Physician GroupComment on above:Performed By: #### BMP, PHOS, LIPID, DIFF CBC ####[address] [address] [facility] Segmented neutrophils/100 WBC (Bld)53 %Jiqkvh00-10Qyt [facility] Comment on above:Performed By: #### BMP, PHOS, LIPID, DIFF CBC ####[address] [address] USAWBC (Bld) [#/Vol]8.4 10*3/uLNormal3.8-11.6The [facility] Physician GroupComment on above:Performed By: #### BMP, PHOS, LIPID, DIFF CBC ####[address] [address] USAWhite Blood Count8.4 [CFU]/mLNormal3.8-11.6The [facility] Physician GroupComment on above:Performed By: #### BMP, PHOS, LIPID, DIFF CBC ####[address] [address] USAECG 12 lead ECGon 40-91-7997OZY 12 lead ECGNoUNC Health Chatham Physician [facility] HospitalECH echo transthoracicon 35-29-2139RLP echo transthoracicH[facility] Physician [facility] HospitalLipid Panelon 10-34-5081Zikkvfhndlh [Mass/Vol]194 mg/dL Xirzpr347-499Pax [facility] Physician GroupComment on above:Result Comment: Chol less than 200 mg/dl low risk Chol 201-239 mg/dl borderline risk Chol 240 mg/dl and greater high riskPerformed By: #### BMP, PHOS, LIPID, DIFF CBC ####[address] [address] USACholesterol in HDL [Mass/Vol]87 mg/iCDhyzje64-35Tda [facility] Physician GroupComment on above: Result Comment: HDL CHOL ATP-III CLASSIFICATION Cardiovascular Risk HDL > or equal to 60 mg/dL LOW HDL < 40 mg/dL HIGHPerformed By: #### BMP, PHOS, LIPID, DIFF CBC ####[address] [address] USACholesterol.total/Cholesterol in HDL [Mass ratio]2.2 {ratio}Normal<5.0The [facility] Physician [facility] HospitalComment on above:Result Comment: PERFORMED BY:[address] [place], [place] [phone] MEDICAL DIRECTORSHANON PIERSON M.D.Performed By: #### BMP, PHOS, LIPID, DIFF CBC ####[address] [address] USALDL Cholesterol,Wwpxzpduup49 mg/dLNormal0-100The [facility] Physician GroupComment on above:Result Comment: LDL ATP III CLASSIFICATION LDL less than 100 mg/dL Optimal LDL 100-129 mg/dL Near or above optimal LDL 130-159 mg/dL Borderline high LDL 160-189 mg/dL High LDL greater than 189 mg/dL Very highPerformed By: #### BMP, PHOS, LIPID, DIFF CBC ####[address] [address] USATriglyceride w/Ayvjwh52 mg/dLNormal0-149The [facility] Physician GroupComment on above:Result Comment: TRIG ATP III CLASSIFICATION TRIG less than 150 mg/dL Normal TRIG 150-199 mg/dL Borderline high TRIG 200-500 mg/dL High TRIG greater than 500 mg/dL Very high Standard traceable to the Center for Disease Conrtrol and Prevention (CDC) test method.Performed By: #### BMP, PHOS, LIPID, DIFF CBC ####[address] [address] USAVLDL JDMUZYKPRRV66 mg/dLNormalThe [facility] Physician GroupComment on above:Performed By: #### BMP, PHOS, LIPID, DIFF CBC ####[address] [address] USAPhosphoruson 12-16-2024 Phosphate [Mass/Vol]3.0 mg/dLNormal2.5-4.5The [facility] Physician GroupComment on above:Performed By: #### BMP, PHOS, LIPID, DIFF CBC ####[address] [address] USATroponin I High Sensitivityon 00-98-0113Zmgabiij I High Mmbergpgyzv598Kqo scale high0-15The [place] Physician GroupComment on above:Result Comment: Critical Result : Called to and read back by: MYRTLE DUGAN at: 12/16/2024 01:38:46 by:MACRINA The Troponin units of report have been changed to meet the Chest Pain Accreditation requirement, element EC5.M1l2. Troponin units are changed from pg/ml to ng/L. Also, the decimal is removed and results are in whole numbers.PERFORMED BY:[address] [address] [place], [place] [phone] MEDICAL DIRECTORSHANON PIERSON M.D.Performed By: #### HS TROP ####[address] [place] [address] USAUrine Cultureon 27-27-4104Xjjjqakv identified Cx Nom (U)NormalThe [facility] Physician Group Comment on above:Performed By: #### CUU ####[address] [address] USAXR abdomen min 2Von 43-89-7466ZT abdomen min 2VNormalThe [facility] Physician [facility] HospitalAcetaminophen [Mass/volume] in Serum or PlasmaOrdered By: Jen Downing on 67-38-1282Fiwtwpnglmnlk [Mass/Vol]ug/mLLow 10.0-30.0[facility] Mary HospitalComment on above:Result Comment: PERFORMED BY:[address] [address] [place], [place] [phone] MEDICAL LUÍS PIERSON M.D.Performed By: #### CK, BNP, TSH3, YUMIKO, T4F, AMM, SCAN CBC, HS TROP, PHOS, ACET, CMP, ETOH, MG ####[address] [address] USAAlanine aminotransferase [Enzymatic activity/volume] in Serum or PlasmaOrdered By: Jen Downing on 32-42-2042GOC [Catalytic activity/Vol]U/LLow7-52Mount St. Mary HospitalComment on above:Performed By: #### CK, BNP, TSH3, YUMIKO, T4F, AMM, SCAN CBC, HS TROP, PHOS, ACET, CMP, ETOH, MG ####[address] [place] [address] USAAlbumin [Mass/volume] in Serum or Plasma by Bromocresol green (BCG) dye binding methoOrdered By: Jen Downing on 33-52-3430Lkttkrt BCG dye [Mass/Vol]4.4 g/dL3.5-5.7FSCCI Hospital LimaAlkaline phosphatase [Enzymatic activity/volume] in Serum or PlasmaOrdered By: Jen Downing on 40-41-4881TUX [Catalytic activity/Vol]136 U/ZWgzh67-176ByucwdnhlMount St. Mary HospitalComment on above:Performed By: #### CK, BNP, TSH3, YUMIKO, T4F, AMM, SCAN CBC, HS TROP, PHOS, ACET, CMP, ETOH, MG ####[address] [address] USAAmmonia [Moles/volume] in PlasmaOrdered By: Jen Downing on 99-57-3250Qbclazh (P) [Moles/Vol]47 umol/QAvuj02-00KzbtoetopMount St. Mary HospitalComment on above: Result Comment: PERFORMED BY:[address] [place], [place] [phone] MEDICAL DIRECTORSHANON PIERSON M.D.Performed By: #### CK, BNP, TSH3, YUMIKO, T4F, AMM, SCAN CBC, HS TROP, PHOS, ACET, CMP, ETOH, MG ####[address] [address] USAAppearance of UrineOrdered By: Jen Downing on 12-15-2024 Appearance (U)ClearNormalClearMount St. Mary HospitalComment on above: Order Comment: Name Collection Type:: Clean-Voided MidstreamPerformed By: #### ADDONUAPLUS ####[address] [address] USAAspartate aminotransferase [Enzymatic activity/volume] in Serum or PlasmaOrdered By: Jen Downing on 12-84-0368NMW [Catalytic activity/Vol]12 U/L Tpa58-31WutmhcsvmMount St. Mary HospitalComment on above:Performed By: #### CK, BNP, TSH3, YUMIKO, T4F, AMM, SCAN CBC, HS TROP, PHOS, ACET, CMP, ETOH, MG ####[address] [address] USABNP ser/plas Ordered By: Jen Downing on 89-18-8104Rjmuhkzsbvd peptide B (Bld) [Mass/Vol] 176.0 pg/mLHigh5-100Mount St. Mary HospitalComment on above:Result Comment: PERFORMED BY:[address] [place], [place] [phone] MEDICAL DIRECTORSHANON PIERSON M.D.Performed By: #### CK, BNP, TSH3, YUMIKO, T4F, AMM, SCAN CBC, HS TROP, PHOS, ACET, CMP, ETOH, MG ####[address] [address] [place] Bacteria [Presence] in Urine by AutomatedOrdered By: Jen Downing on 94-53-2872Kxqsayig Auto Ql (U)Rare [HPF]None SeenMount St. Mary HospitalBasophils [#/volume] in Blood by Automated countOrdered By: Jen Downing on 78-66-8724Isyoownlj (Bld) [#/Vol]0.1 10*3/uLNormal0.0-0.2FSCCI Hospital LimaComment on above:Performed By: #### CK, BNP, TSH3, YUMIKO, T4F, AMM, SCAN CBC, HS TROP, PHOS, ACET, CMP, ETOH, MG ####[address] [address] USABasophils/100 leukocytes in Blood by Automated countOrdered By: Jen Downing on 21-76-6908Jkxelmvce/100 WBC (Bld) 0.8 %Normal.[facility] St. Mary HospitalComment on above:Performed By: #### CK, BNP, TSH3, YUMIKO, T4F, AMM, SCAN CBC, HS TROP, PHOS, ACET, CMP, ETOH, MG ####[id number] [place] Bilirubin Test strip Ql (U)Ordered By: Jen Downing on 89-66-1374Gpoyvigrf Ql (U)NegativeNegativeMount St. Mary HospitalBilirubin.total [Mass/volume] in Serum or PlasmaOrdered By: Jen Downing on 12-15-2024 Bilirubin [Mass/Vol]0.5 mg/dLNormal0.3-1.0[facility] Comment on above:Performed By: #### CK, BNP, TSH3, YUMIKO, T4F, AMM, SCAN CBC, HS TROP, PHOS, ACET, CMP, ETOH, MG ####[address] [place] [address] USACT head/brain wo conon 55-30-0979TD head/brain wo conNormalThe [facility] Physician GroupCalcium [Mass/volume] in Serum or Plasma Ordered By: Jen Downing on 83-90-3196Opuxpif [Mass/Vol]11.2 mg/dLHigh8.6-10.[address] [facility] HospitalComment on above:Performed By: #### CK, BNP, TSH3, YUMIKO, T4F, AMM, SCAN CBC, HS TROP, PHOS, ACET, CMP, ETOH, MG ####[facility] [address] [place] [address] USACarbon dioxide, total [Moles/volume] in Serum or PlasmaOrdered By: Jen Downing on 70-39-2105LN0 [Moles/Vol]23.7 mmol/MEavdna52.0-31.0[facility] Mary HospitalComment on above:Performed By: #### CK, BNP, TSH3, YUMIKO, T4F, AMM, SCAN CBC, HS TROP, PHOS, ACET, CMP, ETOH, MG ####[address] [address] USAChloride [Moles/volume] in Serum or PlasmaOrdered By: Jen Downing on 77-39-5882Bienhuxk [Moles/Vol]105 mmol/EBdfekn16-[address] Mary HospitalComment on above:Performed By: #### CK, BNP, TSH3, YUMIKO, T4F, AMM, SCAN CBC, HS TROP, PHOS, ACET, CMP, ETOH, MG ####[address] [place] [address] USAColor of Urine by AutoOrdered By: Jen Downing on 96-14-8431Eeyeb (U)Light-yellowNormalYellow [facility] St. Mary HospitalComment on above:Order Comment: Name Collection Type:: Clean-Voided MidstreamPerformed By: #### ADDONUAPLUS ####[address] [id number] USAComprehensive Metabolic Panelon 61-83-8467Cewoacp [Mass/Vol]4.4 g/dLNormal3.5-5.7The [facility] Physician GroupComment on above:Performed By: #### CK, BNP, TSH3, YUMIKO, T4F, AMM, SCAN CBC, HS TROP, PHOS, ACET, CMP, ETOH, MG ####[address] [place] [id number] USACreatinine Clr Calc Lpcsjhzu50.62 NormalBaptist Health Hospital Doral Physician GroupComment on above:Performed By: #### CK, BNP, TSH3, YUMIKO, T4F, AMM, SCAN CBC, HS TROP, PHOS, ACET, CMP, ETOH, MG ####[address] [id number] USAGFR/1.73 sq M.predicted MDRD (S/P/Bld) [Vol rate/Area]43.286 mL/min/{1.73_m2}[facility] Physician GroupComment on above:Performed By: #### CK, BNP, TSH3, YUMIKO, T4F, AMM, SCAN CBC, HS TROP, PHOS, ACET, CMP, ETOH, MG ####[address] [address] USACreatine kinase [Enzymatic activity/volume] in Serum or PlasmaOrdered By: Jen Downing on 38-42-7626LQ [Catalytic activity/Vol]28 U/RRuz54-173AsuvomwhtMount St. Mary HospitalComment on above:Performed By: #### CK, BNP, TSH3, YUMIKO, T4F, AMM, SCAN CBC, HS TROP, PHOS, ACET, CMP, ETOH, MG ####[address] [address] USACreatinine [Mass/volume] in Serum or PlasmaOrdered By: Jne Downing on 92-22-7806Tyunszjzck [Mass/Vol]1.27 mg/dLHigh0.60-1.[address] Mary HospitalComment on above:Performed By: #### CK, BNP, TSH3, YUMIKO, T4F, AMM, SCAN CBC, HS TROP, PHOS, ACET, CMP, ETOH, MG ####[address] [address] USADipstick and Microscopicon 04-66-2601Vlportnk,UrineRareNormalNone SeenThe [facility] Physician GroupComment on above:Order Comment: Name Collection Type:: Clean-Voided MidstreamPerformed By: #### ADDONUAPLUS ####[address] [address] USABilirubin,UrineNegativeNormalNegativeThe [facility] Physician GroupComment on above:Order Comment: Name Collection Type:: Clean-Voided MidstreamPerformed By: #### ADDONUAPLUS ####[address] [address] USAGlucose Ql (U)NormalNormal NormalThe [facility] Physician GroupComment on above:Order Comment: Name Collection Type:: Clean-Voided MidstreamPerformed By: #### ADDONUAPLUS ####[address] [address] USAHyaline Casts,UrineNoneNormal0-8The [facility] Physician GroupComment on above:Order Comment: Name Collection Type:: Clean-Voided MidstreamPerformed By: #### ADDONUAPLUS ####[address] [address] USAMucus,UrineRareNormalThe [facility] Physician GroupComment on above: Order Comment: Name Collection Type:: Clean-Voided MidstreamResult Comment: PERFORMED BY:[address] [place], [place] [phone] MEDICAL LUÍS PIERSON M.D.Performed By: #### ADDONUAPLUS ####[address] [address] USANitrite,UrineNegativeNormalNegativeThe [facility] Physician Group Comment on above:Order Comment: Name Collection Type:: Clean-Voided Midstream Performed By: #### ADDONUAPLUS ####[address] [address] USAOccult Blood,Urine2+NormalNegativeThe [facility] Physician GroupComment on above:Order Comment: Name Collection Type:: Clean- Voided MidstreamResult Comment: PERFORMED BY:[address]GerardoAR[address], [place] [phone] MEDICAL LUÍS PIERSON M.D.Performed By: #### ADDONUAPLUS ####[address] [address] USARBC,UrineInnumerable Normal0-4The [facility] Physician GroupComment on above:Order Comment: Name Collection Type:: Clean-Voided MidstreamPerformed By: #### ADDONUAPLUS ####[address] [address] [place] Specificy [place],Urine1.581Erekpb3.001-1.030The [facility]ician [facility] Comment on above:Order Comment: Name Collection Type:: Clean-Voided Midstream Performed By: #### ADDONUAPLUS ####[address] [address] USASquamous Epithelial Cell,Hqzrp2-5Mopwen0-6Frh [facility] Physician GroupComment on above:Order Comment: Name Collection Type:: Clean-Voided MidstreamPerformed By: #### ADDONUAPLUS ####[address] [address] USAUrobilinogen,UrineNormalNormal NormalThe [facility] Physician GroupComment on above:Order Comment: Name Collection Type:: Clean-Voided MidstreamPerformed By: #### ADDONUAPLUS ####[address] [place] [address] [facility] WBC,Hopqs52-31Fhfzce5-5Lma [facility] Physician GroupComment on above:Order Comment: Name Collection Type:: Clean-Voided MidstreamPerformed By: #### ADDONUAPLUS ####[id number] USAECG 12 lead ECGon 83-08-1801ELE 12 lead ECGNoUNC Health Chatham Physician GroupECG 12 lead ECGNormPalm Springs General Hospital Physician GroupEosinophils [#/volume] in Blood by Automated countOrdered By: Jen Downing on 12-15-2024 Eosinophils (Bld) [#/Vol]0.0 10*3/uLNormal0.0-0.45[facility]. Mary HospitalComment on above:Performed By: #### CK, BNP, TSH3, YUMIKO, T4F, AMM, SCAN CBC, HS TROP, PHOS, ACET, CMP, ETOH, MG ####[address] [id number] USAEosinophils/100 leukocytes in Blood by Automated countOrdered By: Jen Downing on 05-58-8444Hivysvmykel/100 WBC (Bld) 0.5 %Normal.[facility] St. Mary HospitalComment on above:Performed By: #### CK, BNP, TSH3, YUMIKO, T4F, AMM, SCAN CBC, HS TROP, PHOS, ACET, CMP, ETOH, MG ####[address] Epithelial cells.squamous [#/area] in Urine sediment by Automated countOrdered By: Jen Downing on 65-95-2199Cnhdtwmwsu cells.squamous Auto (Urine sed) [#/Area]1-2 [HPF]0-2FSCCI Hospital LimaErythrocyte distribution width [Ratio] by Automated countOrdered By: Jen Downing on 12-15-2024 Erythrocyte distribution width (RBC) [Ratio]14.2 %Ikxlxv89.9-15.3FSCCI Hospital LimaComment on above:Performed By: #### CK, BNP, TSH3, YUMIKO, T4F, AMM, SCAN CBC, HS TROP, PHOS, ACET, CMP, ETOH, MG ####[address] [address] USAErythrocyte morphology finding [Identifier] in BloodOrdered By: Jen Downing on 72-98-6977TGV morphology finding Nom (Bld)NormalNoMercy HospitalComment on above:Performed By: #### CK, BNP, TSH3, YUMIKO, T4F, AMM, SCAN CBC, HS TROP, PHOS, ACET, CMP, ETOH, MG ####[address] [address] USAErythrocytes [#/area] in Urine sediment by Automated countOrdered By: Jen Downing on 67-23-4320BDO Auto (Urine sed) [#/Area]Innumerable [HPF] High0-4FSCCI Hospital LimaErythrocytes [#/volume] in Blood by Automated countOrdered By: Jen Downing on 50-63-5643LFQ (Bld) [#/Vol]3.98 10*6/uLNormal3.60-5.00[facility]. Mary HospitalComment on above: Performed By: #### CK, BNP, TSH3, YUMIKO, T4F, AMM, SCAN CBC, HS TROP, PHOS, ACET, CMP, ETOH, MG ####[address] [address] USAEthanol [Mass/volume] in Serum or PlasmaOrdered By: Jen Downing on 49-86-6876Fqygncp [Mass/Vol]mg/dLNoFairfield Medical CenterComment on above:Performed By: #### CK, BNP, TSH3, YUMIKO, T4F, AMM, SCAN CBC, HS TROP, PHOS, ACET, CMP, ETOH, MG ####[address] [address] USAEthyl Alcohol Profileon 75-36-7088Ggzgria EthanolNot performedNoUNC Health Chatham Physician GroupComment on above:Result Comment: PERFORMED BY:[address] [place], [place] [phone] MEDICAL DIRECTORSHANON PIERSON M.D.Performed By: #### CK, BNP, TSH3, YUMIKO, T4F, AMM, SCAN CBC, HS TROP, PHOS, ACET, CMP, ETOH, MG ####[address] [place] [address] USAGlucose [Mass/volume] in Serum or PlasmaOrdered By: Jen Downing on 84-61-8078Zbkonpe [Mass/Vol]86 mg/qKBjktqb31-619AnchfnmmpMount St. Mary HospitalComment on above:ADA recommended reference rangeRandom Glucose Reference Range is dependent on time and content of last meal. Glucose of more than 200 mg/dL in a nonstressed, ambulatory subject supports the diagnosisof Diabetes Mellitus. Result Comment: Random Glucose Reference Range is dependent on time and content of last meal. Glucose of more than 200 mg/dL in a nonstressed, ambulatory subject supports the diagnosis of Diabetes Mellitus. ADA recommended reference rangePerformed By: #### CK, BNP, TSH3, YUMIKO, T4F, AMM, SCAN CBC, HS TROP, PHOS, ACET, CMP, ETOH, MG ####[facility] [place] [address] USAGlucose [Mass/volume] in Urine by Test stripOrdered By: Jen Downing on 56-51-1195Qenkqsn Test strip (U) [Mass/Vol]Normal mg/dLNormal [facility] Mary HospitalHematocrit [Volume Fraction] of Blood by Automated countOrdered By: Jen Downing on 54-58-7071Oiovnvsytg (Bld) [Volume fraction]37.7 %Cljvbg63.0-46.4FSCCI Hospital LimaComment on above: Performed By: #### CK, BNP, TSH3, YUMIKO, T4F, AMM, SCAN CBC, HS TROP, PHOS, ACET, CMP, ETOH, MG ####[address] [address] USAHemoglobin Test strip Ql (U)Ordered By: Jen Downing on 12-15-2024 Hemoglobin Ql (U)2+HighNegativeMount St. Mary HospitalHemoglobin [Mass/volume] in BloodOrdered By: Jen Downing on 03-89-8516Orztdantzw (Bld) [Mass/Vol]12.4 g/dBLhywho20.8-15.4FSCCI Hospital LimaComment on above:Performed By: #### CK, BNP, TSH3, YUMIKO, T4F, AMM, SCAN CBC, HS TROP, PHOS, ACET, CMP, ETOH, MG ####[address] [place] [address] USAHyaline casts [#/area] in Urine sediment by Automated countOrdered By: Jen Downing on 99-41-7965Gylbdrl casts Auto (Urine sed) [#/Area]None [LPF]0-8Mount [facility]. Mary HospitalKetones [Presence] in Urine by Test stripOrdered By: Jen Downing on 73-22-5293Wzkjvwn Ql (U)TraceNormalNegative [facility]. Mary HospitalComment on above:Order Comment: Name Collection Type:: Clean-Voided MidstreamPerformed By: #### ADDONUAPLUS ####[address] [address] USALeukocyte esterase [Presence] in Urine by Test stripOrdered By: Jen Downing on 12-15-2024 Leukocyte esterase Test strip Ql (U)NegativeNormalNegHolzer Medical Center – JacksonComment on above:Order Comment: Name Collection Type:: Clean- Voided MidstreamPerformed By: #### ADDONUAPLUS ####[address] [address] USALeukocytes [#/area] in Urine sediment by Automated countOrdered By: Jen Downing on 87-61-4342DQE Auto (Urine sed) [#/Area]10-19 [HPF]High0-4FSCCI Hospital LimaLeukocytes [#/volume] corrected for nucleated erythrocytes in Blood by Automated counOrdered By: Jen Downing on 43-15-6231WUO corrected for nucl RBC Auto (Bld) [#/Vol]7.3 10*3/uL3.8-11.6FSCCI Hospital LimaLeukocytes [#/volume] in Blood by Automated countOrdered By: Jen Downing on 04-77-9640ORL (Bld) [#/Vol]7.3 10*3/uLNormal3.8-11.6FSCCI Hospital LimaComment on above:Performed By: #### CK, BNP, TSH3, YUMIKO, T4F, AMM, SCAN CBC, HS TROP, PHOS, ACET, CMP, ETOH, MG ####[address] [address] USALymphocytes [#/volume] in Blood by Automated countOrdered By: Jen Downing on 74-81-5431Zlffzxyvjal (Bld) [#/Vol]1.9 10*3/uLNormal1.00-4.8[facility]. Mary HospitalComment on above:Performed By: #### CK, BNP, TSH3, YUMIKO, T4F, AMM, SCAN CBC, HS TROP, PHOS, ACET, CMP, ETOH, MG ####[address] [address] USALymphocytes/100 leukocytes in Blood by Automated countOrdered By: Jen Downing on 57-54-1655Vprcwonxaff/100 WBC (Bld)25.4 %Normal.[facility]. Mary HospitalComment on above: Performed By: #### CK, BNP, TSH3, YUMIKO, T4F, AMM, SCAN CBC, HS TROP, PHOS, ACET, CMP, ETOH, MG ####[address] [address] [facility] [Entitic mass] by Automated countOrdered By: Jen Downing on 76-07-5604WUB (RBC) [Entitic mass]31.1 irIgklma18.7-34.3FSCCI Hospital LimaComment on above:Performed By: #### CK, BNP, TSH3, YUMIKO, T4F, AMM, SCAN CBC, HS TROP, PHOS, ACET, CMP, ETOH, MG ####[address] [address] [facility] Auto (RBC) [Mass/Vol]Ordered By: Jen Downing on 60-40-2213SPCU (RBC) [Mass/Vol]32.9 g/dL32.0-35.0Fire[facility] Regional Medical CenterMCV [Entitic volume] by Automated countOrdered By: Jen Downing on 97-34-3021NLQ (RBC) [Entitic vol]94.[address]SMfcnxd17-163WtmgscllpMount [address]. Mary HospitalComment on above:Performed By: #### CK, BNP, TSH3, YUMIKO, T4F, AMM, SCAN CBC, HS TROP, PHOS, ACET, CMP, ETOH, MG ####[address] [place] [address] USAMagnesiumon 12-15-2024 Magnesium [Mass/Vol]2.1 mg/dLNormal1.9-2.7The [facility] Physician GroupComment on above:Performed By: #### CK, BNP, TSH3, YUMIKO, T4F, AMM, SCAN CBC, HS TROP, PHOS, ACET, CMP, ETOH, MG ####[address] [address] USAMonocyte distribution width [Entitic volume] in Blood by AutomatedOrdered By: Jen Downing on 80-31-7430Uisfgkwa distribution width Auto (Bld) [Entitic vol]18.52 %0.00-20.00[facility] Monocytes [#/volume] in Blood by Automated countOrdered By: Jen Downing on 76-06-3800Lqpcakmuc (Bld) [#/Vol]0.9 10*3/uLHigh0.0-0.8[facility]. Mary HospitalComment on above:Performed By: #### CK, BNP, TSH3, YUMIKO, T4F, AMM, SCAN CBC, HS TROP, PHOS, ACET, CMP, ETOH, MG ####[address] [address] USAMonocytes/100 leukocytes in Blood by Automated countOrdered By: Jen Downing on 31-72-5742Phqbiranx/100 WBC (Bld) 12.3 %Normal.[facility] Mary HospitalComment on above:Performed By: #### CK, BNP, TSH3, YUMIKO, T4F, AMM, SCAN CBC, HS TROP, PHOS, ACET, CMP, ETOH, MG ####[address] [address] USAMucus [Presence] in Urine by AutomatedOrdered By: Jen Downing on 24-86-7922Sztbh Auto Ql (U)Rare [LPF][facility] HospitalNeutrophils [#/volume] in Blood by Automated countOrdered By: Jen Downing on 89-03-5135Fcdwvgeshzb (Bld) [#/Vol]4.5 10*3/uLNormal1.8-7.7FSCCI Hospital LimaComment on above:Performed By: #### CK, BNP, TSH3, YUMIKO, T4F, AMM, SCAN CBC, HS TROP, PHOS, ACET, CMP, ETOH, MG ####[facility] [address] [place] [address] USANeutrophils/100 leukocytes in Blood by Automated countOrdered By: Jen Downing on 60-47-6244Fpfhmhaqxki/100 WBC (Bld)61.0 % Normal.[facility]. Mary HospitalComment on above:Performed By: #### CK, BNP, TSH3, YUMIKO, T4F, AMM, SCAN CBC, HS TROP, PHOS, ACET, CMP, ETOH, MG ####Fi [facility] [address] [place] [address] USANitrite Test strip Ql (U)Ordered By: Jen Downing on 53-85-1478Sqrigdm Ql (U)Negative NegativeMount St. Mary HospitalNo Panel InformationOrdered By: Jen Downing on 53-26-3378Airdgotlh GFR (CKD-EPI)43.286 mL/MinMount St. Mary HospitalPharmacy Creatinine Clearance (Chem25.62Mount [facility]. Mary HospitalNucleated erythrocytes [Presence] in Blood by Automated countOrdered By: Jen Downing on 20-78-9980Gjbffdvyy RBC Auto Ql (Bld)0.1 /100{WBC}0-0.[address] Mary HospitalParathyroid Hormone Intacton 12-15-2024 Parathyroid Hormone Yxqgrm14.0 pg/eBMleoix42-61Oqg [facility] Comment on above:Result Comment: PERFORMED BY:[address] [place] [id number] MEDICAL DIRECTORMARIO S DANGELO M.D.Performed By: #### PTH ####[address] [address] USAPhosphoruson 12-15-2024 Phosphate [Mass/Vol]3.0 mg/dLNormal2.5-4.5The [facility] Physician GroupComment on above:Performed By: #### CK, BNP, TSH3, YUMIKO, T4F, AMM, SCAN CBC, HS TROP, PHOS, ACET, CMP, ETOH, MG ####[place] [id number] USAPlatelet adequacy [Presence] in Blood by Light microscopyOrdered By: Jen Downing on 12-77-7154Tnlpciskx LM Ql (Bld)Normal NormalMount St. Mary HospitalPlatelet mean volume [Entitic volume] in Blood by Automated countOrdered By: Jen Downing on 43-74-6657Vjuigioq mean volume (Bld) [Entitic vol]9.9 fLNormal6.3-10.7FSCCI Hospital [facility] Comment on above:Performed By: #### CK, BNP, TSH3, YUMIKO, T4F, AMM, SCAN CBC, HS TROP, PHOS, ACET, CMP, ETOH, MG ####[place] [id number] USAPlatelet morphology finding [Identifier] in Blood Ordered By: Jen Downing on 97-40-4857Zztyqsmp morphology finding Nom (Bld)N/A [facility] HospitalPlatelets Large [Presence] in Blood by Light microscopyOrdered By: Jen Downing on 61-45-4204Zbnuosxum Large LM Ql (Bld) SlightMount St. Mary HospitalPlatelets [#/volume] in Blood by Automated countOrdered By: Jen Downing on 28-05-7035Mxvzrnpjl (Bld) [#/Vol] 276 10*3/gLDvldwr146-131GcpvopnxmMount St. Mary HospitalComment on above: Performed By: #### CK, BNP, TSH3, YUMIKO, T4F, AMM, SCAN CBC, HS TROP, PHOS, ACET, CMP, ETOH, MG ####[address] [address] USAPotassium [Moles/volume] in Serum or PlasmaOrdered By: Jen Downing on 39-11-5069Gqeocvlwr [Moles/Vol]4.3 mmol/LNormal3.5-5.1FSCCI Hospital LimaComment on above:Performed By: #### CK, BNP, TSH3, YUMIKO, T4F, AMM, SCAN CBC, HS TROP, PHOS, ACET, CMP, ETOH, MG ####[address] [address] USAProtein [Mass/volume] in Serum or PlasmaOrdered By: Jen Downing on 72-88-6540Dbvvqlg [Mass/Vol]6.8 g/dLNormal 6.4-8.9Mount St. Mary HospitalComment on above:Performed By: #### CK, BNP, TSH3, YUMIKO, T4F, AMM, SCAN CBC, HS TROP, PHOS, ACET, CMP, ETOH, MG ####[address] [address] USAProtein [Mass/volume] in Urine by Test stripOrdered By: Jen Downing on 12-15-2024 Protein (U) [Mass/Vol]50 mg/dLNormalNegativeMount St. Mary Hospital Comment on above:Order Comment: Name Collection Type:: Clean-Voided Midstream Performed By: #### ADDONUAPLUS ####[address] [address] USASalicylateon 54-48-5056Ozbahgojdn<1.5Low15.0-30.0The [facility] Physician GroupComment on above:Result Comment: Patients treated with Sulfasalazine may generate a false high result for Salicylate.Performed By: #### CK, BNP, TSH3, YUMIKO, T4F, AMM, SCAN CBC, HS TROP, PHOS, ACET, CMP, ETOH, MG ####[address] [address] [place] Salicylates [Mass/volume] in Serum or PlasmaOrdered By: Jen Downing on 59-63-7078Varcabxlbvi [Mass/Vol]mg/dLLow15.0-30.0[facility] Mary HospitalComment on above:Patients treated with Sulfasalazine may generate a false high result for Salicylate.Scan and CBCon 92-14-6431Rblwu PlateletsSlightNormal The [facility] Hospital Physician GroupComment on above:Result Comment: PERFORMED BY:[address] [place], [place] [phone] MEDICAL DIRECTORSHANON PIERSON M.D.Performed By: #### CK, BNP, TSH3, YUMIKO, T4F, AMM, SCAN CBC, HS TROP, PHOS, ACET, CMP, ETOH, MG ####[address] [address] USAMean Corpuscular HGB Conc32.9 g/xLHquqve36.0-35.0[facility] Physician [facility] HospitalComment on above: Performed By: #### CK, BNP, TSH3, YUMIKO, T4F, AMM, SCAN CBC, HS TROP, PHOS, ACET, CMP, ETOH, MG ####[address] [address] USAMonocytes/100 WBC (Bld)18.52 %Normal0.00-20.00[facility] Physician [facility] HospitalComment on above:Performed By: #### CK, BNP, TSH3, YUMIKO, T4F, AMM, SCAN CBC, HS TROP, PHOS, ACET, CMP, ETOH, MG ####[address] [address] USANRBC%0.1 /100{WBC}Normal0-0.5[facility] Physician [facility] HospitalComment on above:Performed By: #### CK, BNP, TSH3, YUMIKO, T4F, AMM, SCAN CBC, HS TROP, PHOS, ACET, CMP, ETOH, MG ####[address] [address] USAPlatelet EstimateNormalNormalNormalThe [facility] Physician [facility] HospitalComment on above:Performed By: #### CK, BNP, TSH3, YUMIKO, T4F, AMM, SCAN CBC, HS TROP, PHOS, ACET, CMP, ETOH, MG ####[address] [place] [address] USAWhite Blood Count7.3 [CFU]/mLNormal3.8-11.6The [facility] Hospital Physician GroupComment on above:Performed By: #### CK, BNP, TSH3, YUMIKO, T4F, AMM, SCAN CBC, HS TROP, PHOS, ACET, CMP, ETOH, MG ####[place] [id number] [place] Serum globulin measurement by calculation (mass/volume)Ordered By: Jen Downing on 82-75-6836Echwnhtv (S) [Mass/Vol]2.4 g/dLNormSt. Anthony's HospitalComment on above:Performed By: #### CK, BNP, TSH3, YUMIKO, T4F, AMM, SCAN CBC, HS TROP, PHOS, ACET, CMP, ETOH, MG ####[place] [id number] USASerum or plasma albumin/globulin mass ratioOrdered By: Jen Downing on 96-40-6139Qebuvdo/Globulin [Mass ratio]1.8 {ratio}Protestant HospitalComment on above:Performed By: #### CK, BNP, TSH3, YUMIKO, T4F, AMM, SCAN CBC, HS TROP, PHOS, ACET, CMP, ETOH, MG ####[place] [id number] USASerum or plasma anion gap determinationOrdered By: Jen Downing on 64-54-6553Wsazx gap [Moles/Vol]12.6 mmol/LNormal6.0-15.0[facility]. Mary HospitalComment on above:Performed By: #### CK, BNP, TSH3, YUMIKO, T4F, AMM, SCAN CBC, HS TROP, PHOS, ACET, CMP, ETOH, MG ####[place] [id number] USASerum or plasma ethanol measurement (mass/volume) Ordered By: Jen Downing on 93-46-7934Dqzcvgv [Mass/Vol]Kindred Hospital DaytonComment on above:Test not performedSodium [Moles/volume] in Serum or PlasmaOrdered By: Jen Downing on 96-15-1718Abatbo [Moles/Vol]137 mmol/L Myyxsn921-040HyelamoznMount St. Mary HospitalComment on above:Performed By: #### CK, BNP, TSH3, YUMIKO, T4F, AMM, SCAN CBC, HS TROP, PHOS, ACET, CMP, ETOH, MG ####[address] [address] [facility] Specific gravity Test strip (U) [Rel density]Ordered By: Jen Downing on 51-05-4340Iicummns gravity (U) [Rel density]1.0121.001-1.030Mount St. Mary HospitalThyrotropin [Units/volume] in Serum or PlasmaOrdered By: Jen Downing on 27-02-6174WVI Qn0.81 m[IU]/LNormal0.45-5.33[facility] St. Mary HospitalComment on above:Result Comment: PERFORMED BY:[address] [place], [place] [phone] MEDICAL LUÍS PIERSON M.D.Performed By: #### CK, BNP, TSH3, YUMIKO, T4F, AMM, SCAN CBC, HS TROP, PHOS, ACET, CMP, ETOH, MG ####[address] [address] USAThyroxine (T4) free [Mass/volume] in Serum or PlasmaOrdered By: Jen Downing on 46-00-3869Ffkx T4 [Mass/Vol]1.45 ng/dLHigh0.61-1.12[facility] St. Mary HospitalComment on above:Performed By: #### CK, BNP, TSH3, YUMIKO, T4F, AMM, SCAN CBC, HS TROP, PHOS, ACET, CMP, ETOH, MG ####[address] [address] [facility] Troponin I High Sensitivityon 44-64-9482Cvntxreg I High Mknhpebmpml196Uvu scale high0-15The [facility] Hospital Physician GroupComment on above:Result Comment: Critical Result : Called to and read back by: MYRTLE DUGAN at: 12/15/2024 21:26:49 by:DERICK The Troponin units of report have been changed to meet the Chest Pain Accreditation requirement, element EC5.M1l2. Troponin units are changed from pg/ml to ng/L. Also, the decimal is removed and results are in whole numbers.PERFORMED BY:[address] [place], [place] [phone] MEDICAL LUÍS PIERSON M.D.Performed By: #### HS TROP ####[address] [address] USATroponin I High Flaajglnbvz757Yfe scale high0-15The [facility] Hospital Physician GroupComment on above:Result Comment: Critical Result : Called to and read back by: DARRIUS CALDERA at: 12/15/2024 17:51:56 by:DERICK The Troponin units of report have been changed to meet the Chest Pain Accreditation requirement, element EC5.M1l2. Troponin units are changed from pg/ml to ng/L. Also, the decimal is removed and results are in whole numbers.PERFORMED BY:[address] [place], [place] [phone] MEDICAL LUÍS PIERSON M.D.Performed By: #### HS TROP ####[address] [address] USATroponin I High Vslkphwjzhk161Izk scale high0-15The [facility] Hospital Physician GroupComment on above: Result Comment: Critical Result : Called to and read back by: GUS TRIANA at: 12/15/2024 14:03:36 by:MACRINA The Troponin units of report have been changed to meet the Chest Pain Accreditation requirement, element EC5.M1l2. Troponin units are changed from pg/ml to ng/L. Also, the decimal is removed and results are in whole numbers.PERFORMED BY:[address] [place], [place] [phone] MEDICAL LUÍS PIERSON M.D.Performed By: #### HS TROP ####[address] [address] USATroponin I High Nswraafhxva102Mej scale high0-15The [facility] Hospital Physician GroupComment on above:Result Comment: Critical Result : Called to and read back by: GUS TRIANA at: 12/15/2024 12:25:41 by:Angelica The Troponin units of report have been changed to meet the Chest Pain Accreditation requirement, element EC5.M1l2. Troponin units are changed from pg/ml to ng/L. Also, the decimal is removed and results are in whole numbers.PERFORMED BY:[address] [place], [place] [phone] MEDICAL DIRECTORSHANON PIERSON M.D.Performed By: #### CK, BNP, TSH3, YUMIKO, T4F, AMM, SCAN CBC, HS TROP, PHOS, ACET, CMP, ETOH, MG ####[address] [address] [facility] Troponin I.cardiac [Mass/volume] in Serum or Plasma by Detection limit <= 0.01 ng/mLOrdered By: Jen Downing on 57-21-5739Igfzydfa I.cardiac DL <= 0.01 ng/mL [Mass/Vol]108 ng/LCritically high0-15[facility] St. Mary HospitalComment on above:Critical Result : Called to and read back by: GUS TRIANA at: 12/15/2024 14:03:36 by:MLGThe Troponin units of report have been changed to meet the Chest Pain Accreditation requirement, element EC5.M1l2. Troponin units are changed from pg/ml to ng/L. Also, the decimal is removed and results are in w hole numbers.Urea nitrogen [Mass/volume] in Serum or PlasmaOrdered By: Jen Downing on 65-10-1685Pvck nitrogen [Mass/Vol]21 mg/dLNormal01-02[facility] St. Mary HospitalComment on above:Performed By: #### CK, BNP, TSH3, YUMIKO, T4F, AMM, SCAN CBC, HS TROP, PHOS, ACET, CMP, ETOH, MG ####[address] [address] USAUrobilinogen Test strip (U) [Mass/Vol]Ordered By: Jen Downing on 65-38-6675Wfthcsuyhrjv (U) [Mass/Vol] Normal mg/dLNormalMount St. Mary HospitalX-ray reportOrdered By: Andrew Henson on 58-30-3692Nrvcs reportCHILLICOTHE [facility] [address] [place] [address] [place] [address] XRay Report Signed Patient: Judith Land MR#: [id number] : 1945 Acct:[id number] Age/Sex: 79 / F ADM Date: 5 Loc: ER Room: Type: [place] [facility] Attending Dr: Copies to: Jen Downing [...] Henson M.D. 12/15/2024 12:20 PM Dictation Location: [place] [address] Transcribed By: [facility] 12/15/24 1220 Dictated By: Andrew Henson DO 12/15/24 1219 Signed By: 12/15/[address] [facility] HospitalXR chest 2V*on 74-83-8570WN chest 2V*NormalThe [facility] Physician GrouppH of Urine by Test stripOrdered By: Jen Downing on 56-33-0143nU (U)6.5 [pH]Normal5.0-9.0[facility]. Mary HospitalComment on above:Order Comment: Name Collection Type:: Clean-Voided MidstreamPerformed By: #### ADDONUAPLUS ####[facility] [id number] USAAcanthocytes [Presence] in Blood by Light microscopyOrdered By: Damaso Charlton on 80-41-1636Ohuxibzamtkv LM Ql (Bld)SlightMount St. Mary HospitalAlanine aminotransferase [Enzymatic activity/volume] in Serum or PlasmaOrdered By: Damaso Charlton on 95-13-5345VWK [Catalytic activity/Vol]4 U/LLow 7-52Mount St. Mary HospitalComment on above:Performed By: #### CMP, SCAN CBC ####[address] [place] [address] USAAlbumin [Mass/volume] in Serum or Plasma by Bromocresol green (BCG) dye binding methoOrdered By: Damaso Charlton on 07-07-4773Wvwkiwt BCG dye [Mass/Vol]4.5 g/dL3.5-5.7FSCCI Hospital LimaAlkaline phosphatase [Enzymatic activity/volume] in Serum or PlasmaOrdered By: Damaso Charlton on 00-51-1118LSM [Catalytic activity/Vol]148 U/NWazs84-539ApwvpjxmaMount St. Mary Hospital Comment on above:Performed By: #### CMP, SCAN CBC ####[address] [address] USAAppearance of UrineOrdered By: Damaso Charlton on 38-82-4754Vvpvpeyuhg (U)ClearNormalClearMount St. Mary HospitalComment on above:Order Comment: Name Collection Type:: Clean-Voided MidstreamPerformed By: #### UA ####[address] [address] USAAspartate aminotransferase [Enzymatic activity/volume] in Serum or PlasmaOrdered By: Damaso Charlton on 35-85-9435TBO [Catalytic activity/Vol]13 U/SSghkdw23-92TsfvcxcbxMount St. Mary Hospital Comment on above:Performed By: #### CMP, SCAN CBC ####[address] [address] USABasophils [#/volume] in Blood by Automated countOrdered By: Damaso Charlton on 45-72-4620Gssfbadxh (Bld) [#/Vol]0.1 10*3/uLNormal0.0-0.2Firelands Regional Medical CenterComment on above:Performed By: #### CMP, SCAN CBC ####[address] [place] [address] USABasophils/100 leukocytes in Blood by Automated count Ordered By: Damaso Charlton on 93-28-8868Yyzgvvaja/100 WBC (Bld)0.9 %Normal. [facility] Mary HospitalComment on above:Performed By: #### CMP, SCAN CBC ####[address] [place] [address] [place] Bilirubin Test strip Ql (U)Ordered By: Damaso Charlton on 72-35-0933Bjoopnbpm Ql (U)NegativeNegativeMount St. Mary HospitalBilirubin.total [Mass/volume] in Serum or PlasmaOrdered By: Damaso Charlton on 09-75-6286Afxrazpju [Mass/Vol]0.5 mg/dLNormal0.3-1.0[facility] Mary HospitalComment on above:Performed By: #### CMP, SCAN CBC ####[place] [id number] USACT cervical spine wo conon 33-64-9860WF cervical spine wo conNormalThe [facility] Hospital Physician GroupCalcium [Mass/volume] in Serum or PlasmaOrdered By: Damaso Charlton on 46-88-5749Xearckq [Mass/Vol]11.1 mg/dLHigh8.6-10.3FSCCI Hospital LimaComment on above:Performed By: #### CMP, SCAN CBC ####[place] [id number] USACapillary blood glucose measurement by glucometer (mass/volume) Ordered By: Damaso Charlton on 39-91-1501Rzkopoi [Mass/Vol]84 mg/dLNormSt. Anthony's HospitalComment on above:Random Glucose Reference Range is dependent on time and content of last meal. Glucose of more than 200 mg/dL in a nonstressed, ambulatory subject supports the diagnosis of Diabetes Mellitus. Result Comment: Random Glucose Reference Range is dependent on time and content of last meal. Glucose of more than 200 mg/dL in a nonstressed, ambulatory subject supports the diagnosis of Diabetes Mellitus.PERFORMED BY:[place] [address] [address] [place], [place] [phone] MEDICAL LUÍS PIERSON M.D.Performed By: #### GLULS ####Point of Care testing,Carbon dioxide, total [Moles/volume] in Serum or PlasmaOrdered By: Damaso Charlton on 39-41-5681YZ3 [Moles/Vol]25.5 mmol/GDgpisl32.0-31.0[facility] Mary HospitalComment on above:Performed By: #### CMP, SCAN CBC ####[address] [address] [place] Chloride [Moles/volume] in Serum or PlasmaOrdered By: Damaso Charlton on 12-14-2024 Chloride [Moles/Vol]106 mmol/EKfbbrd98-488KktchrrbxMount St. Mary Hospital Comment on above:Performed By: #### CMP, SCAN CBC ####[address] [address] USAColor of Urine by AutoOrdered By: Damaso Charlton on 60-00-1805Jdlii (U)ColorlessNormalYellowMount St. Mary HospitalComment on above:Order Comment: Name Collection Type:: Clean- Voided MidstreamPerformed By: #### UA ####[address] [address] USAComprehensive Metabolic Panelon 12-14-2024 Albumin [Mass/Vol]4.5 g/dLNormal3.5-5.7The [facility] Physician GroupComment on above:Performed By: #### CMP, SCAN CBC ####[address] [address] USACreatinine Clr Calc Fuealxwt58.34NoUNC Health Chatham Physician GroupComment on above:Result Comment: PERFORMED BY:[place] [address] [address] [place], [place] [phone] MEDICAL LUÍS PIERSON M.D.Performed By: #### CMP, SCAN CBC ####[address] [address] [place] GFR/1.73 sq M.predicted MDRD (S/P/Bld) [Vol rate/Area]39.179 mL/min/{1.73_m2} NormalThe [facility] Women'S Hospital Physician GroupComment on above:Performed By: #### CMP, SCAN CBC ####[place] [address] [place] Creatinine [Mass/volume] in Serum or PlasmaOrdered By: Damaso Charlton on 73-27-0642Vfytdpidvy [Mass/Vol]1.38 mg/dLHigh0.60-1.20[facility] Mary HospitalComment on above:Performed By: #### CMP, SCAN CBC ####[place] [id number] USAECG 12 lead ECGon 12-14-2024 ECG 12 lead ECGNormalThe [facility]'S Hospital Physician GroupEosinophils [#/volume] in Blood by Automated countOrdered By: Damaso Charlton on 83-51-5586Oauvmrnyvrs (Bld) [#/Vol]0.2 10*3/uLNormal0.0-0.45[facility] Mary HospitalComment on above:Performed By: #### CMP, SCAN CBC ####[place] [id number] USAEosinophils/100 leukocytes in Blood by Automated countOrdered By: Damaso Charlton on 66-20-6708Lhcwsbqaudh/100 WBC (Bld) 2.3 %Normal.[facility] Mary HospitalComment on above:Performed By: #### CMP, SCAN CBC ####[place] [address] USAErythrocyte distribution width [Ratio] by Automated countOrdered By: Damaso Charlton on 17-34-6521Ysswqpvnyfh distribution width (RBC) [Ratio]14.4 % Dsvgwc90.9-15.3FSCCI Hospital LimaComment on above:Performed By: #### CMP, SCAN CBC ####[place] [address] USAErythrocyte morphology finding [Identifier] in BloodOrdered By: Damaso Charlton on 12-30-5579NTJ morphology finding Nom (Bld)N/The Christ HospitalErythrocytes [#/volume] in Blood by Automated countOrdered By: Damaso Charlton on 99-55-5808LGR (Bld) [#/Vol]4.11 10*6/uLNormal3.60-5.00[facility] Mary HospitalComment on above:Performed By: #### CMP, SCAN CBC ####[address] [place] [address] USAGlucose [Mass/volume] in Serum or PlasmaOrdered By: Damaso Charlton on 98-69-0628Arcsrqu [Mass/Vol]95 mg/iEGqqznu01-070EuztuwkzdMount St. Mary HospitalComment on above: ADA recommended reference rangeRandom Glucose Reference Range is dependent on time and content of last meal. Glucose of more than 200 mg/dL in a nonstressed, ambulatory subject supports the diagnosisof Diabetes Mellitus.Result Comment: Random Glucose Reference Range is dependent on time and content of last meal. Glucose of more than 200 mg/dL in a nonstressed, ambulatory subject supports the diagnosis of Diabetes Mellitus. ADA recommended reference rangePerformed By: #### CMP, SCAN CBC ####[address] [place] [address] USAGlucose [Mass/volume] in Urine by Test stripOrdered By: Damaso Charlton on 93-92-2226Yyolvke Test strip (U) [Mass/Vol]Normal mg/dLNormalMount St. Mary HospitalHematocrit [Volume Fraction] of Blood by Automated count Ordered By: Damaso Charlton on 06-15-6559Ncnsepmefv (Bld) [Volume fraction]39.0 % Czswam44.0-46.4FSCCI Hospital LimaComment on above:Performed By: #### CMP, SCAN CBC ####[address] [place] [address] USAHemoglobin Test strip Ql (U)Ordered By: Damaso Charlton on 12-14-2024 Hemoglobin Ql (U)NegativeNegativeMount St. Mary HospitalHemoglobin [Mass/volume] in BloodOrdered By: Damaso Charlton on 17-14-3561Rgzvycggcu (Bld) [Mass/Vol]12.7 g/wUDghtoe85.8-15.4FSCCI Hospital LimaComment on above:Performed By: #### CMP, SCAN CBC ####[address] [address] USAKetones [Presence] in Urine by Test strip Ordered By: Damaso Charlton on 36-33-2302Isrdjku Ql (U)NegativeNormalNegMagruder Memorial HospitalComment on above:Order Comment: Name Collection Type:: Clean-Voided MidstreamPerformed By: #### UA ####[address] [address] USALeukocyte esterase [Presence] in Urine by Test stripOrdered By: Damaso Charlton on 66-10-7880Civchprru esterase Test strip Ql (U)NegativermalNegHolzer Medical Center – JacksonComment on above:Order Comment: Name Collection Type:: Clean-Voided MidstreamPerformed By: #### UA ####[address] [address] USALeukocytes [#/volume] corrected for nucleated erythrocytes in Blood by Automated counOrdered By: Damaso Charlton on 07-53-3681VXV corrected for nucl RBC Auto (Bld) [#/Vol]6.5 10*3/uL3.8-11.6FSCCI Hospital LimaLeukocytes [#/volume] in Blood by Automated countOrdered By: Damaso Charlton on 10-34-2496IXA (Bld) [#/Vol]6.5 10*3/uLNormal3.8-11.6FSCCI Hospital LimaComment on above:Performed By: #### CMP, SCAN CBC ####[address] [address] USALymphocytes [#/volume] in Blood by Automated countOrdered By: Damaso Charlton on 47-00-1697Fljnwnlvxqt (Bld) [#/Vol]1.0 10*3/uL Normal1.00-4.8[facility] Mary HospitalComment on above:Performed By: #### CMP, SCAN CBC ####[address] [address] USALymphocytes/100 leukocytes in Blood by Automated countOrdered By: Damaso Charlton on 11-77-7499Hvednoyyjra/100 WBC (Bld)15.7 %Normal.[facility] Mary HospitalComment on above:Performed By: #### CMP, SCAN CBC ####[address] [address] [facility] [Entitic mass] by Automated countOrdered By: Damaso Charlton on 61-17-0654YJV (RBC) [Entitic mass]31.0 pnXbiteh49.7-34.3FSCCI Hospital LimaComment on above:Performed By: #### CMP, SCAN CBC ####[address] Auto (RBC) [Mass/Vol]Ordered By: Damaso Charlton on 69-35-2522MMTM (RBC) [Mass/Vol]32.6 g/dL32.0-35.0[facility] Mary HospitalMCV [Entitic volume] by Automated countOrdered By: Damaso Charlton on 77-81-3023IUE (RBC) [Entitic vol]94.9 uHKpuord19-170VfpapwryeMount St. Mary HospitalComment on above:Performed By: #### CMP, SCAN CBC ####[place] [id number] USAMonocyte distribution width [Entitic volume] in Blood by AutomatedOrdered By: Damaso Charlton on 12-14-2024 Monocyte distribution width Auto (Bld) [Entitic vol]17.59 %0.00-20.00[facility] HospitalMonocytes [#/volume] in Blood by Automated countOrdered By: Damaso Charlton on 62-22-3137Vtmhpwfyl (Bld) [#/Vol]0.7 10*3/uLNormal0.0-0.[address] [facility] HospitalComment on above:Performed By: #### CMP, SCAN CBC ####[address] [place] [address] [place] Monocytes/100 leukocytes in Blood by Automated countOrdered By: Damaso Charlton on 12-20-3191Rsavxjfer/100 WBC (Bld)9.9 %Normal.[facility] Comment on above:Performed By: #### CMP, SCAN CBC ####[address] [address] USANeutrophils [#/volume] in Blood by Automated countOrdered By: Damaso Charlton on 15-31-7950Rmlugozsxik (Bld) [#/Vol] 4.7 10*3/uLNormal1.8-7.7FSCCI Hospital LimaComment on above: Performed By: #### CMP, SCAN CBC ####[place] [id number] USANeutrophils/100 leukocytes in Blood by Automated countOrdered By: Damaso Charlton on 68-40-5256Smtmkiqmjfc/100 WBC (Bld)71.2 %Normal .[facility] Mary HospitalComment on above:Performed By: #### CMP, SCAN CBC ####[place] [id number] [place] Nitrite Test strip Ql (U)Ordered By: Damaso Charlton on 17-99-2864Qjnqsya Ql (U) NegativeNegativeMount St. Mary HospitalNo Panel InformationOrdered By: Damaso Charlton on 75-97-5983Noyggydfn GFR (CKD-EPI)39.179 mL/MinMount St. Mary HospitalPharmacy Creatinine Clearance (Chem23.34[facility] Mary HospitalNucleated erythrocytes [Presence] in Blood by Automated countOrdered By: Damaso Charlton on 16-48-7285Vbpqfamjw RBC Auto Ql (Bld)0.2 /100{WBC}0-0.5FSCCI Hospital LimaPlatelet adequacy [Presence] in Blood by Light microscopyOrdered By: Damaso Charlton on 37-68-0186Ewzluokmg LM Ql (Bld)NormalNormalMount St. Mary HospitalPlatelet mean volume [Entitic volume] in Blood by Automated countOrdered By: Damaso Charlton on 12-14-2024 Platelet mean volume (Bld) [Entitic vol]9.8 fLNormal6.3-10.7FSCCI Hospital LimaComment on above:Performed By: #### CMP, SCAN CBC ####[address] [place] [address] USAPlatelet morphology finding [Identifier] in BloodOrdered By: Damaso Charlton on 58-32-7820Bffhrvwe morphology finding Nom (Bld)NormalNormalMount St. Mary Hospital Platelets [#/volume] in Blood by Automated countOrdered By: Damaso Charlton on 02-05-8778Qqwynyzfo (Bld) [#/Vol]303 10*3/nDVgshge376-453BhinozshhMount St. Mary HospitalComment on above:Performed By: #### CMP, SCAN CBC ####[address] [address] USAPotassium [Moles/volume] in Serum or PlasmaOrdered By: Damaso Charlton on 30-52-9289Tmltqnrmy [Moles/Vol]4.6 mmol/LNormal3.5-5.1FSCCI Hospital LimaComment on above:Performed By: #### CMP, SCAN CBC ####[address] [address] USAProtein Test strip (U) [Mass/Vol]Ordered By: Damaso Charlton on 50-65-2774Rbztnoj (U) [Mass/Vol]NegativeNegativeMount St. Mary HospitalProtein [Mass/volume] in Serum or PlasmaOrdered By: Damaso Charlton on 91-92-2074Zhobtpb [Mass/Vol]6.8 g/dLNormal6.4-8.9[facility] Mary HospitalComment on above:Performed By: #### CMP, SCAN CBC ####[address] [address] USAScan and CBCon 53-67-7070FnlakngnjnacUncvwwFnztgyOma Firelands Physician GroupComment on above:Performed By: #### CMP, SCAN CBC ####[address] [address] USAMean Corpuscular HGB Conc32.6 g/dL Wolese31.0-35.0[facility] Physician [facility] General HospitalComment on above:Performed By: #### CMP, SCAN CBC ####[address] [address] USAMonocytes/100 WBC (Bld)17.59 %Normal0.00-20.00[facility] Physician GroupComment on above:Performed By: #### CMP, SCAN CBC ####[address] [address] USANRBC%0.2 /100{WBC}Normal0-0.5 [facility] Physician GroupComment on above:Performed By: #### CMP, SCAN CBC ####[address] [address] [place] Platelet EstimateNormalNormalNormPalm Springs [facility] Hospital Physician [facility]alla[facility]chie General HospitalComment on above:Performed By: #### CMP, SCAN CBC ####[address] [address] USAPlatelet MorphologyNormalNormalNormPalm Springs [facility] Hospital Physician [facility] General HospitalComment on above:Result Comment: PERFORMED BY:[address] KEELYGerardoRatnaTRUMANSBURG, [place] [id number] MEDICAL LUÍS PIERSON M.D.Performed By: #### CMP, SCAN CBC ####73 [address] [address] USAWhite Blood Count6.5 [CFU]/mLNormal3.8-11.6[facility] Physician [facility]allahatchie General HospitalComment on above:Performed By: #### CMP, SCAN CBC ####[address] [address] USASerum globulin measurement by calculation (mass/volume)Ordered By: Damaso Charlton on 65-12-6369Rnhncsbk (S) [Mass/Vol]2.3 g/dLProtestant HospitalComment on above:Performed By: #### CMP, SCAN CBC ####[address] [address] USASerum or plasma albumin/globulin mass ratioOrdered By: Damaso Charlton on 49-16-6650Fauvguh/Globulin [Mass ratio]2.0 {ratio}NormalMount St. Mary HospitalComment on above:Performed By: #### CMP, SCAN CBC ####[address] [address] USASerum or plasma anion gap determinationOrdered By: Damaso Charlton on 23-47-9495Ovgkp gap [Moles/Vol]12.1 mmol/LNormal6.0-15.0Mount St. Mary HospitalComment on above:Performed By: #### CMP, SCAN CBC ####[address] [address] USASodium [Moles/volume] in Serum or PlasmaOrdered By: Damaso Charlton on 42-68-0155Boswke [Moles/Vol]139 mmol/APhundb512-319AzwevilzjMount St. Mary HospitalComment on above:Performed By: #### CMP, SCAN CBC ####[place] [address] [place] Specific gravity Test strip (U) [Rel density]Ordered By: Damaso Charlton on 70-76-5868Qhvjticy gravity (U) [Rel density]1.0101.001-1.030Mount St. Mary HospitalUrea nitrogen [Mass/volume] in Serum or PlasmaOrdered By: Damaso Charlton on 76-03-8079Sonv nitrogen [Mass/Vol]23 mg/dLNormal7-25Mount St. Mary HospitalComment on above:Performed By: #### CMP, SCAN CBC ####[address] [address] USAUrinalysison 19-99-8173Lcgvsgntg,UrineNegativeNormalNegativeThe [facility] Comment on above:Order Comment: Name Collection Type:: Clean-Voided Midstream Performed By: #### UA ####[address] [address] USAGlucose Ql (U)NormalNormalNormalThe [facility] Physician GroupComment on above:Order Comment: Name Collection Type:: Clean- Voided MidstreamPerformed By: #### UA ####[place] [place] [address] USANitrite,UrineNegativeNormalNegativeThe [facility] Physician GroupComment on above:Order Comment: Name Collection Type:: Clean-Voided MidstreamPerformed By: #### UA ####[address] [address] USAOccult Blood,UrineNegativeNormal NegativeThe [facility] Hospital Physician GroupComment on above:Order Comment: Name Collection Type:: Clean-Voided MidstreamResult Comment: PERFORMED BY:[address] [place], [place] [phone] MEDICAL DIRECTORSHANON PIERSON M.D.Performed By: #### UA ####[address] [address] USAProtein,UrineNegative NormalNegativeThe [facility] Physician GroupComment on above:Order Comment: Name Collection Type:: Clean-Voided MidstreamPerformed By: #### UA ####[address] [address] USASpecificy [place],Urine1.755Pcjccq6.001-1.030The [facility] Physician GroupComment on above:Order Comment: Name Collection Type:: Clean-Voided MidstreamPerformed By: #### UA ####[address] [address] USAUrobilinogen,UrineNormalNormalNormalThe [facility] Physician GroupComment on above:Order Comment: Name Collection Type:: Clean-Voided MidstreamPerformed By: #### UA ####[address] [address] USAUrobilinogen Test strip (U) [Mass/Vol]Ordered By: Damaso Charlton on 12-14-2024 Urobilinogen (U) [Mass/Vol]Normal mg/dLNormSt. Anthony's HospitalX- ray reportOrdered By: Andrew Henson on 51-26-8108Xatno reportCHILLICOTHE VA MEDICAL [facility]ENTER [address] [place] [address] [place] [address] XRay Report Signed Patient: Judith Land MR#: [id number] : 1945 Acct:[id number] Age/Sex: 79 / F ADM Date: 5 Loc: ER Room: Type: [place] [facility] Attending Dr: Copies to: Damaso Charlton [...] Henson M.D. 12/14/2024 9:47 AM Dictation Location: [place] [address] Transcribed By: [facility] 12/14/2447 Dictated By: Andrew Henson DO 12/14/24 0947 Signed By: 12/14/[address] Mary HospitalXR chest 2V*on 89-22-5734GE chest 2V*NormalThe [facility] Physician GrouppH of Urine by Test stripOrdered By: Damaso Charlton on 33-41-0173qD (U)7.0 [pH]Normal5.0-9.0[facility]. Mary HospitalComment on above:Order Comment: Name Collection Type:: Clean-Voided MidstreamPerformed By: #### UA ####[facility] [address] [place] [address] USACBC (H/H, RBC, INDICES, WBC, PLT)on 24-18-6182Wqsxjfdhmuf distribution width (RBC) [Ratio]13.6 %Lymjzh06.0-15.0Quest DiagnosticsComment on above:Performed By: #### 12235, 1759 #### [facility] [address] [place] [address] Design Checker: Stefani R FlatiHematocrit (Bld) [Volume fraction]39.5 %Normal 35.0-45.0Quest DiagnosticsComment on above:Performed By: #### 15076, 1759 #### [facility] [address] [place] [address] Design Checker: Stefani Gates FlatiHemoglobin (Bld) [Mass/Vol]12.9 g/dLNormal 11.7-15.5Quest DiagnosticsComment on above:Performed By: #### 660[address], 1759 #### [facility] [address] [place] [address] Design Checker: Stefani Gates FlatiMCH (RBC) [Entitic mass]30.6 upKpsxcr86.0-33.0 Quest DiagnosticsComment on above:Performed By: #### [address], 175 #### [facility]osticsSh[place] [address] Design Checker: Stefani AguileraiMCHC (RBC) [Mass/Vol]32.7 g/mLZuctcn00.0-36.0 Quest DiagnosticsComment on above:Result Comment: For adults, a slight decrease in the calculated MCHC value (in the range of 30 to 32 g/dL) is most likely not clinically significant; however, it should be interpreted with caution in correlation with other red cell parameters and the patient's clinical condition.Performed By: #### 34531, 175 #### [facility] [address] [place] [address] Design Checker: Stefani AguileraiMCV (RBC) [Entitic vol]93.8 yIOdetkd43.0-100.0 Quest DiagnosticsComment on above:Performed By: #### 84820, 1759 #### [facility] [address] [place] [address] Design Checker: Stefani AguileraiPlatelet mean volume (Bld) [Entitic vol]11.6 fLNormal7.5-12.5Quest DiagnosticsComment on above:Performed By: #### 01763, 1759 #### [facility] [address] [place] [address] Design Checker: Stefani Gates FlatiPlatelets (Bld) [#/Vol]341 10*3/uLNormal 140-400Quest DiagnosticsComment on above:Performed By: #### 62859, 1759 #### [facility] [address] [place] [address] Design Checker: Stefani Gates FlatiRBC (Bld) [#/Vol]4.21 10*6/uLNormal3.80-5.10 Quest DiagnosticsComment on above:Performed By: #### 81596, 1759 #### [facility] [address] [place] [address] Design Checker: Stefani Gates FlatiWBC (Bld) [#/Vol]6.6 10*3/uLNormal3.8-10.8 Quest DiagnosticsComment on above:Performed By: #### 30575, 1759 #### [facility] [address] [place] [address] Design Checker: Stefani AguileraiCBC panel Auto (Bld)on 64-86-6907Huuwjgpnvos distribution width (RBC) [Ratio]13.6 %11.0 - 15.0 %[facility] HealthcareHematocrit (Bld) [Volume fraction]39.5 %35.0 - 45.0 %[facility] HealthcareHemoglobin (Bld) [Mass/Vol]12.9 g/dL11.7 - 15.5 g/dLMercy Hospital JoplinH (RBC) [Entitic mass]30.6 pg27.0 - 33.0 pgMercy Hospital JoplinHC (RBC) [Mass/Vol]32.7 g/dL32.0 - 36.0 g/dL [facility] HealthcareComment on above:For adults, a slight decrease in the calculated MCHC value (in the range of 30 to 32 g/dL) is most likely not clinically significant; however, it should be interpreted with caution in correlation with other red cell parameters and the patient's clinical condition. MCV (RBC) [Entitic vol]93.8 fL80.0 - 100.0 fLSaint Mary's Hospital of Blue SpringsPlatelet mean volume (Bld) [Entitic vol]11.6 fL7.5 - 12.5 fLNOND HealthcarePlatelets (Bld) [#/Vol]341 10*3/uLNOND HealthcareRBC (Bld) [#/Vol]4.21 10*6/uLUTAH STATE [facility]OSPITAL HealthcareWBC (Bld) [#/Vol]6.6 10*3/[facility] HealthcareCOMPREHENSIVE METABOLIC PANELon 12-11-2024 Albumin [Mass/Vol]4.2 g/dLNormal3.6-5.1Quest DiagnosticsComment on above: Performed By: #### 89982, 1759 #### [facility] [address] [place] [address] Design Checker: Stefani AguileraiAlbumin/Globulin [Mass ratio]2.0 {ratio}Normal 1.0-2.5Quest DiagnosticsComment on above:Performed By: #### 87716, 175 #### [facility] [address] [place] [address] Design Checker: Stefani Gates FlatiALP [Catalytic activity/Vol]149 U/LNormal 37-153Quest DiagnosticsComment on above:Performed By: #### 62436, 1759 #### [facility]osticsSh[place] [address] Design Checker: Stefani Gates FlatiALT [Catalytic activity/Vol]5 U/LLow6-29Quest DiagnosticsComment on above:Performed By: #### 02117, 1759 #### [facility] [address] [place] [address] Design Checker: Stefani Gates FlatiAST [Catalytic activity/Vol]12 U/ZCsvpya26-69 Quest DiagnosticsComment on above:Performed By: #### 63672, 1759 #### [facility] [address] [place] [address] Design Checker: Stefani Gates FlatiBilirubin [Mass/Vol]0.4 mg/dLNormal0.2-1.2 Quest DiagnosticsComment on above:Performed By: #### 15484, 1759 #### [facility] [address] [place], [place] [id number] Design Checker: Stefani Gates FlatiCalcium [Mass/Vol]10.8 mg/dLHigh8.6-10.4Quest DiagnosticsComment on above:Performed By: #### 44023, 175 #### [facility] [address] [place], [place] [id number] Design Checker: Stefani Gates FlatiChloride [Moles/Vol]106 mmol/FInicrk95-328 Quest DiagnosticsComment on above:Performed By: #### 401[address], 175 #### [facility] [address] [place] [address] Design Checker: Stefani Gates FlatiCO2 [Moles/Vol]24 mmol/KApcior79-76Ufqtn DiagnosticsComment on above:Performed By: #### 69261, 175 #### [facility] [address] [place] [address] Design Checker: Stefani Gates FlatiCreatinine [Mass/Vol]1.34 mg/dLHigh0.60-1.00 Quest DiagnosticsComment on above:Performed By: #### 39452, 175 #### [facility] [address] [place] [address] Design Checker: Stefani Gates FlatiGFR/1.73 sq M.predicted among non-blacks MDRD (S/P/Bld) [Vol rate/Area]41 mL/min/{1.73_m2}Low> OR = 60Quest DiagnosticsComment on above:Performed By: #### 49765, 175 #### [facility] [address] [place], [place] [id number] Design Checker: Stefani Gates FlatiGlobulin (S) [Mass/Vol]2.1 g/dLNormal1.9-3.7 Quest DiagnosticsComment on above:Performed By: #### 60005, 175 #### [facility] [address] [place], [place] [id number] Design Checker: Stefani Gates FlatiGlucose [Mass/Vol]85 mg/jOOhtjta19-18Isspz DiagnosticsComment on above:Result Comment: Fasting reference intervalPerformed By: #### 59767, 1759 #### [facility] [address] [place], [place] [id number] Design Checker: Stefani Gates FlatiPotassium [Moles/Vol]4.9 mmol/LNormal3.5-5.3 Quest DiagnosticsComment on above:Performed By: #### 93507, 1759 #### [facility] [address] [place], [place] [id number] Design Checker: Stefani Gates FlatiProtein [Mass/Vol]6.3 g/dLNormal6.1-8.1Quest DiagnosticsComment on above:Performed By: #### 81677, 1759 #### [facility] [address] [place] [address] Design Checker: Stefani Gates FlatiSodium [Moles/Vol]139 mmol/HStkjad906-876Elzpo DiagnosticsComment on above:Performed By: #### 37124, 1759 #### [facility] [address] [place], [place] [id number] Design Checker: Stefani Gates FlatiUrea nitrogen [Mass/Vol]24 mg/dLNormal7-25 Quest DiagnosticsComment on above:Performed By: #### 19942, 1759 #### [facility] [address] [place] [address] Design Checker: Stefani Gates FlatiUrea nitrogen/Creatinine [Mass ratio]18 mg/mg Normal6-22Quest DiagnosticsComment on above:Performed By: #### 17309, 1759 #### [facility] [address] [place], [place] [id number] Design Checker: Stefani AguileraiLaboratory - Chemistry and Chemistry - challenge 29-09-8159Cwnvggq [Mass/Vol]4.2 g/dL3.6 - 5.1 g/dLNOND Healthcare Albumin/Globulin [Mass ratio]2 {ratio}NOMS HealthcareALP [Catalytic activity/Vol]149 U/L37 - 153 U/LNOMS HealthcareALT [Catalytic activity/Vol]5 U/L Low6 - 29 U/LNOMS HealthcareAST [Catalytic activity/Vol]12 U/L10 - 35 U/LNOMS HealthcareBilirubin [Mass/Vol]0.4 mg/dL0.2 - 1.2 mg/dLNOND HealthcareCalcium [Mass/Vol]10.8 mg/dLHigh8.6 - 10.4 mg/dLNOND HealthcareChloride [Moles/Vol]106 mmol/L98 - 110 mmol/LNOMS HealthcareCO2 [Moles/Vol]24 mmol/L20 - 32 mmol/LNOMS HealthcareCreatinine [Mass/Vol]1.34 mg/dLHigh0.60 - 1.00 mg/dLNOND Healthcare GFR/1.73 sq M.predicted among non-blacks MDRD (S/P/Bld) [Vol rate/Area]41 mL/min/{1.73_m2}Low> OR = 60 mL/min/1.44p5JEVX HealthcareGlobulin (S) [Mass/Vol] 2.1 g/dLNOND HealthcareGlucose [Mass/Vol]85 mg/dL65 - 99 mg/dLNOSt. Louis VA Medical Center Comment on above: Fasting reference interval Potassium [Moles/Vol]4.9 mmol/L3.5 - 5.3 mmol/LNOMS HealthcareProtein [Mass/Vol] 6.3 g/dL6.1 - 8.1 g/dLNOSt. Louis VA Medical CenterSodium [Moles/Vol]139 mmol/L135 - 146 mmol/LNOMS HealthcareUrea nitrogen [Mass/Vol]24 mg/dL7 - 25 mg/dLNOSt. Louis [facility] Center Urea nitrogen/Creatinine [Mass ratio]18 mg/mgNOSt. Louis VA Medical CenterNo Panel Information on 48-33-4308Wrvswaghapfjrm and review of laboratory resultsAbnormJeanes HospitalPerforming Organization Information Site ID: [id number] Name: [facility] Address: [address] [place] [id number] Director: Stefani VaughnMonroe Clinic HospitalAcanthocytes [Presence] in Blood by Light microscopyOrdered By: Trish Christensen on 61-34-2516Gyeeddakmeif LM Ql (Bld)[facility] Medical CenterAnisocytosis [Presence] in Blood by Light microscopyOrdered By: Trish Christensen on 81-61-2868Mebljtyfijrv Ql (Bld)SlightNormalMount St. Mary HospitalComment on above:Performed By: #### BMP, DIFF CBC ####[address] [address] USABasic Metabolic Panelon 19-13-3417Ovqjbnxnjo Clr Calc Hkyvysfb19.98 NormalThe [facility]S Hospital Physician GroupComment on above:Result Comment: PERFORMED BY:[address] [place], [place] [phone] MEDICAL LUÍS PIERSON M.D.Performed By: #### BMP, DIFF CBC ####[address] [address] USAGFR/1.73 sq M.predicted MDRD (S/P/Bld) [Vol rate/Area]mL/min/{1.73_m2}Normal The [facility] Physician GroupComment on above:Performed By: #### BMP, DIFF CBC ####[address] [address] [place] Basophils Auto (Bld) [#/Vol]Ordered By: Trish Christensen on 75-36-1879Szawzcjpc (Bld) [#/Vol]N/[facility] HospitalBasophils/100 WBC Auto (Bld) Ordered By: Trish Christensen on 98-14-6494Fmoelkapu/100 WBC (Bld)N/[facility] HospitalCalcium [Mass/volume] in Serum or PlasmaOrdered By: Trish Christensen on 24-10-2353Hwhbnoz [Mass/Vol]10.4 mg/dLHigh8.6-10.3FSCCI Hospital LimaComment on above:Performed By: #### BMP, DIFF CBC ####[address] [address] USACarbon dioxide, total [Moles/volume] in Serum or PlasmaOrdered By: Trish Christensen on 29-01-6504IT6 [Moles/Vol]29.6 mmol/FWhucpp39.0-31.0[facility] Mary HospitalComment on above:Performed By: #### BMP, DIFF CBC ####[address] [address] USAChloride [Moles/volume] in Serum or Plasma Ordered By: Trish Christenesn on 71-94-8165Yixmomtz [Moles/Vol]110 mmol/WHyxa70-[address] Mary HospitalComment on above:Performed By: #### BMP, DIFF CBC ####[address] [address] [place] Creatinine [Mass/volume] in Serum or PlasmaOrdered By: Trish Christensen on 95-61-7771Fcpheokhhn [Mass/Vol]0.91 mg/dLNormal0.60-1.20[facility]. Mary HospitalComment on above:Performed By: #### BMP, DIFF CBC ####[address] [address] USADiff and CBCon 77-55-5894OcixnwccyaigOqxyiqguIqwmjgNta Firelands Physician GroupComment on above:Performed By: #### BMP, DIFF CBC ####[address] [address] USAGiant Platelet Tally2 /100{WBC}NormalThe [facility] Physician [facility] General HospitalComment on above:Performed By: #### BMP, DIFF CBC ####[address] [address] USALarge PlateletsModerateNoUNC Health Chatham Physician [facility] General HospitalComment on above:Result Comment: PERFORMED BY:[place] [address] [address] [place], [place] [phone] MEDICAL LUÍS PIERSON M.D.Performed By: #### BMP, DIFF CBC ####[address] [address] USAMean Corpuscular HGB Conc33.2 g/zDAviiop55.0-35.0[facility] Physician [facility] General HospitalComment on above:Performed By: #### BMP, DIFF CBC ####[address] [address] [place] Myelocytes2 %High0-0[facility] Physician GroupComment on above:Performed By: #### BMP, DIFF CBC ####[place] [address] USAPlatelet EstimateNormalNormalNormalThe [facility] Comment on above:Performed By: #### BMP, DIFF CBC ####[place] [address] USAEosinophils Auto (Bld) [#/Vol]Ordered By: Trish Christensen on 73-17-8299Knrjcydnunx (Bld) [#/Vol]N/The [facility] HospitalEosinophils/100 WBC Auto (Bld)Ordered By: Trish Christensen on 40-69-1852Vqopwtydyjr/100 WBC (Bld)N/[facility] Eosinophils/100 leukocytes in Blood by Manual countOrdered By: Trish Christensen on 52-79-1149Dslrdlaqqmi/100 WBC (Bld)9 %High1-[address] [place] [address] Comment on above:Performed By: #### BMP, DIFF CBC ####[place] [address] USAErythrocyte distribution width [Ratio] by Automated countOrdered By: Trish Christensen on 63-75-6364Fsijyosbsxh distribution width (RBC) [Ratio]14.8 %Igbmey98.9-15.3FSCCI Hospital LimaComment on above:Performed By: #### BMP, DIFF CBC ####[place] [address] USAErythrocyte morphology finding [Identifier] in BloodOrdered By: Trish Christensen on 91-12-4203SWO morphology finding Nom (Bld)N/The Christ HospitalErythrocytes [#/volume] in Blood by Automated countOrdered By: Trish Christensen on 46-78-2523KMQ (Bld) [#/Vol] 3.70 10*6/uLNormal3.60-5.00[facility]. Mary HospitalComment on above: Performed By: #### BMP, DIFF CBC ####[place] [address] [place] [address] USAGiant platelets/100 leukocytes [Ratio] in Blood by Manual countOrdered By: Trish Christensen on 88-08-6625Dkrqu platelets/100 WBC Manual cnt (Bld) [Ratio]2 /100{WBC}[facility] HospitalGlucose [Mass/volume] in Serum or PlasmaOrdered By: Trish Christensen on 31-81-5297Psjzyni [Mass/Vol]101 mg/vUBhbz45-078PkaycjfioMount St. Mary HospitalComment on above: ADA recommended reference rangeRandom Glucose Reference Range is dependent on time and content of last meal. Glucose of more than 200 mg/dL in a nonstressed, ambulatory subject supports the diagnosisof Diabetes Mellitus.Result Comment: Random Glucose Reference Range is dependent on time and content of last meal. Glucose of more than 200 mg/dL in a nonstressed, ambulatory subject supports the diagnosis of Diabetes Mellitus. ADA recommended reference rangePerformed By: #### BMP, DIFF CBC ####[address] [address] USAHematocrit [Volume Fraction] of Blood by Automated countOrdered By: Trish Christensen on 11-83-8047Ioxiphfwbx (Bld) [Volume fraction]34.7 %Normal 34.0-46.4FSCCI Hospital LimaComment on above:Performed By: #### BMP, DIFF CBC ####[address] [address] USAHemoglobin [Mass/volume] in BloodOrdered By: Trish Christensen on 10-40-3704Yvdrbgxgzg (Bld) [Mass/Vol]11.5 g/dLLow11.8-15.4FSCCI Hospital LimaComment on above:Performed By: #### BMP, DIFF CBC ####[address] [address] USALeukocytes [#/volume] corrected for nucleated erythrocytes in Blood by Automated counOrdered By: Trish Christensen on 78-38-7663GBD corrected for nucl RBC Auto (Bld) [#/Vol]10.5 10*3/uL3.8-11.6FSCCI Hospital LimaLeukocytes [#/volume] in Blood by Automated countOrdered By: Trish Christensen on 31-00-7712TOV (Bld) [#/Vol]10.5 10*3/uLNormal3.8-11.6FSCCI Hospital LimaComment on above:Performed By: #### BMP, DIFF CBC ####[facility] [address] [place] [address] USALymphocytes Auto (Bld) [#/Vol]Ordered By: Trish Christensen on 70-73-2637Dgpebsbsfvz (Bld) [#/Vol]N/The Christ HospitalLymphocytes/100 WBC Auto (Bld)Ordered By: Trish Christensen on 11-02-2024 Lymphocytes/100 WBC (Bld)N/The Christ HospitalLymphocytes/100 leukocytes in Blood by Manual countOrdered By: Trish Christensen on 11-02-2024 Lymphocytes/100 WBC (Bld)20 %Lflykm19-01MrkzebthpMount St. Mary HospitalComment on above:Performed By: #### BMP, DIFF CBC ####[facility] [address] [place], [place] [address] [facility] [Entitic mass] by Automated count Ordered By: Trish Christensen on 78-62-2827AVF (RBC) [Entitic mass]31.1 pgNormal 24.7-34.3FSCCI Hospital LimaComment on above:Performed By: #### BMP, DIFF CBC ####[facility] [address] [place], [place] [address] [facility] TAHLEQUAHHC Auto (RBC) [Mass/Vol]Ordered By: Trish Christensen on 32-07-0959LWII (RBC) [Mass/Vol]33.2 g/dL32.0-35.0[facility] Mary HospitalMCV [Entitic volume] by Automated countOrdered By: Trish Christensen on 12-35-0330JVT (RBC) [Entitic vol]93.[address] vZUfhmyc45-275GuwrkimrfMount [address]. Mary HospitalComment on above:Performed By: #### BMP, DIFF CBC ####[facility] [address] [place] [address] USAMonocytes Auto (Bld) [#/Vol]Ordered By: Trish Christensen on 95-11-2636Svewukbbv (Bld) [#/Vol]NCommunity [facility] Hospital Monocytes/100 WBC Auto (Bld)Ordered By: Trish Christensen on 83-20-0090Vpfntuuwf/100 WBC (Bld)N/The [facility] HospitalMonocytes/100 leukocytes in Blood by Manual countOrdered By: Trish Christensen on 80-06-2539Uedllsuon/100 WBC (Bld)11 %Normal2-11[facility]. Mary HospitalComment on above:Performed By: #### BMP, DIFF CBC ####[facility] [address] [place] [address] USAMyelocytes/100 WBC Manual cnt (Bld)Ordered By: Trish Christensen on 15-84-0848Pikcyuosln/100 WBC (Bld)2 %High0-0[facility] Neutrophils Auto (Bld) [#/Vol]Ordered By: Trish Christensen on 79-72-1843Oqagavroeyc (Bld) [#/Vol]NCommunity Memorial HospitalNeutrophils/100 WBC Auto (Bld) Ordered By: Trish Christensen on 24-00-7833Nttpzscvunc/100 WBC (Bld)[facility] LimaNo Panel InformationOrdered By: Trish Christensen on 86-87-3020Lhqcdcvlb GFR (CKD-EPI)> 60.0 mL/MinMount St. Mary Hospital [facility] Creatinine Clearance (Chem39.98[facility] Nucleated erythrocytes [Presence] in Blood by Automated countOrdered By: Trish Christensen on 78-30-8050Pbepxquig RBC Auto Ql (Bld)[facility] Hospital LimaPlatelet adequacy [Presence] in Blood by Light microscopyOrdered By: Trish Christensen on 91-76-0563Kvfemftkw LM Ql (Bld)NormalNormalMount St. Mary HospitalPlatelet mean volume [Entitic volume] in Blood by Automated count Ordered By: Trish Christensen on 58-87-0474Xlehpmye mean volume (Bld) [Entitic vol] 10.9 fLHigh6.3-10.7FSCCI Hospital LimaComment on above:Result Comment: PERFORMED BY:[address] [place]AL[place], [place] [phone] MEDICAL DIRECTORSHANON PIERSON M.D.Performed By: #### BMP, DIFF CBC ####[place] [address] [place] [address] USAPlatelet morphology finding [Identifier] in Blood Ordered By: Trish Christensen on 45-93-8088Psszffsi morphology finding Nom (Bld)N/A [facility] Mary HospitalPlatelets Large [Presence] in Blood by Light microscopyOrdered By: Trish Christensen on 00-91-9928Sxniembmb Large LM Ql (Bld) ModerateMount St. Mary HospitalPlatelets [#/volume] in Blood by Automated countOrdered By: Trish Christensen on 43-05-2835Mpkpinrdt (Bld) [#/Vol]324 10*3/lMYohozi889-252UuaqkyeuhMount St. Mary HospitalComment on above:Performed By: #### BMP, DIFF CBC ####[address] [address] USAPotassium [Moles/volume] in Serum or PlasmaOrdered By: Trish Christensen on 72-49-3059Ietaundua [Moles/Vol]3.7 mmol/LNormal3.5-5.[address] [facility] HospitalComment on above:Performed By: #### BMP, DIFF CBC ####[address] [address] [place] Segmented neutrophils/100 leukocytes in Blood by Manual countOrdered By: Trish Christensen on 69-70-5251Dkvnxrgtn neutrophils/100 WBC (Bld)58 %Qwtsub44-60YiaizdmwaMount St. Mary HospitalComment on above:Performed By: #### BMP, DIFF CBC ####[address] [address] USASerum or plasma anion gap determinationOrdered By: Trish Christensen on 45-12-4858Qiwys gap [Moles/Vol]9.1 mmol/LNormal6.0-15.0[facility]. Mary HospitalComment on above:Performed By: #### BMP, DIFF CBC ####[place] [id number] [place] [id number] USASodium [Moles/volume] in Serum or Plasma Ordered By: Trish Johniewalker on 19-87-7819Egchna [Moles/Vol]145 mmol/VPvaiwl556-[address] [facility] HospitalComment on above:Performed By: #### BMP, DIFF CBC ####[place] [id number] [place] Urea nitrogen [Mass/volume] in Serum or PlasmaOrdered By: Danniebrien Johinesandra on 34-36-0039Ciuw nitrogen [Mass/Vol]16 mg/dLNormal7-25Mount St. Mary HospitalComment on above:Performed By: #### BMP, DIFF CBC ####[place] [id number] USAAlanine aminotransferase [Enzymatic activity/volume] in Serum or PlasmaOrdered By: Danniebrien Johniesandra on 11-50-0508XZR [Catalytic activity/Vol]13 U/LNormal7-52[facility] St. Mary HospitalComment on above:Performed By: #### CMP, CBC ####[place] [phone] USAAlbumin [Mass/volume] in Serum or Plasma by Bromocresol green (BCG) dye binding methoOrdered By: Trish Johniewalker on 82-21-2152Dfmnhmq BCG dye [Mass/Vol]3.1 g/dLLow3.5-5.7FSCCI Hospital LimaAlkaline phosphatase [Enzymatic activity/volume] in Serum or PlasmaOrdered By: Danniebrien Johniewalker on 12-25-7909XXQ [Catalytic activity/Vol]111 U/L Jtkh98-735NmpqyebkvMount St. Mary HospitalComment on above:Performed By: #### CMP, CBC ####[place] [id number] USAAspartate aminotransferase [Enzymatic activity/volume] in Serum or Plasma Ordered By: Trish Christensen on 36-53-7478AQB [Catalytic activity/Vol]14 U/LNormal 13-39[facility] St. Mary HospitalComment on above:Performed By: #### CMP, CBC ####[place] [phone] [place] Bilirubin.total [Mass/volume] in Serum or PlasmaOrdered By: Trish Christensen on 65-76-5251Jgkwwimwm [Mass/Vol]0.5 mg/dLNormal0.3-1.0[facility] Mary HospitalComment on above:Performed By: #### CMP, CBC ####[place] [phone] USAComplete Blood Count Auto Diff on 86-66-0207Eileifbzu (Bld) [#/Vol]0.1 10*3/uLNormal0.0-0.2The [facility] Physician GroupComment on above:Result Comment: PERFORMED BY:[address] [place], [place] [phone] MEDICAL DIRECTORANNE OLGUIN M.D.Performed By: #### CMP, CBC ####[place] [phone] USABasophils/100 WBC (Bld)0.4 %Normal.The [facility] Hospital Physician GroupComment on above:Performed By: #### CMP, CBC ####[place] [phone] USAEosinophils (Bld) [#/Vol]0.6 10*3/uLHigh0.0-0.45The [facility] Hospital Physician GroupComment on above:Performed By: #### CMP, CBC ####[place] [phone] USAEosinophils/100 WBC (Bld)4.4 % Normal.The [facility] Hospital Physician GroupComment on above:Performed By: #### CMP, CBC ####[place] [id number] [place] Erythrocyte distribution width (RBC) [Ratio]15.0 %Qfqnis17.9-15.3The [facility] Hospital Physician GroupComment on above:Performed By: #### CMP, CBC ####[place] [address] USAHematocrit (Bld) [Volume fraction]32.1 %Low34.0-46.4The [facility] Physician GroupComment on above:Performed By: #### CMP, CBC ####[place] [address] USAHemoglobin (Bld) [Mass/Vol]10.8 g/dLLow11.8-15.4The [facility] Physician GroupComment on above:Performed By: #### CMP, CBC ####[place] [address] [place] Lymphocytes (Bld) [#/Vol]1.5 10*3/uLNormal1.00-4.8The [facility] Comment on above:Performed By: #### CMP, CBC ####[place] [address] USALymphocytes/100 WBC (Bld)10.4 %Normal. The [facility] Hospital Physician GroupComment on above:Performed By: #### CMP, CBC ####[place] [address] USAMCH (RBC) [Entitic mass]31.6 kaIjoeec92.7-34.3The [facility] Physician GroupComment on above:Performed By: #### CMP, CBC ####[place] [address] USAMCV (RBC) [Entitic vol]94.4 iQQxterw55-516Bum [facility] Physician GroupComment on above:Performed By: #### CMP, CBC ####[place] [address] USAMean Corpuscular HGB Conc33.5 g/xYUzsxnr63.0-35.0The [facility] Physician GroupComment on above:Performed By: #### CMP, CBC ####[place] [address] [place] [address] USAMonocytes (Bld) [#/Vol]1.3 10*3/uLHigh0.0-0.8 The [facility] Physician GroupComment on above:Performed By: #### CMP, CBC ####[address] [address] [place] Monocytes/100 WBC (Bld)8.6 %Normal.The [facility] Physician GroupComment on above:Performed By: #### CMP, CBC ####[address] [address] USANeutrophils (Bld) [#/Vol]11.2 10*3/uLHigh1.8-7.7The [facility] Physician GroupComment on above:Performed By: #### CMP, CBC ####[address] [address] [place] Neutrophils/100 WBC (Bld)76.2 %Normal.The [facility] Physician GroupComment on above:Performed By: #### CMP, CBC ####[address] [address] USANRBC%0.3 /100{WBC}Normal0-0.5The [facility] Physician GroupComment on above:Performed By: #### CMP, CBC ####[address] [address] USAPlatelet mean volume (Bld) [Entitic vol]10.6 fLNormal6.3-10.7The [facility] Physician GroupComment on above: Performed By: #### CMP, CBC ####[address] [address] USAPlatelets (Bld) [#/Vol]253 10*3/rPErrjvc729-335Nhc [facility] Physician GroupComment on above:Performed By: #### CMP, CBC ####[address] [address] USARBC (Bld) [#/Vol]3.40 10*6/uLLow3.60-5.00The [facility] Physician GroupComment on above:Performed By: #### CMP, CBC ####[place] [address] USAWBC (Bld) [#/Vol]14.6 10*3/uLHigh3.8-11.6The [facility] Physician GroupComment on above:Performed By: #### CMP, CBC ####[address] Comprehensive Metabolic Panelon 37-03-5147Tjpyfmz [Mass/Vol]3.1 g/dLLow3.5-5.7 The [facility] Physician GroupComment on above:Performed By: #### CMP, CBC ####[place] [address] USAAnion gap [Moles/Vol]10.1 mmol/LNormal6.0-15.0The [facility] Physician GroupComment on above:Performed By: #### CMP, CBC ####[place] [address] USACalcium [Mass/Vol]9.4 mg/dLNormal8.6-10.3The [facility] Physician GroupComment on above:Performed By: #### CMP, CBC ####[place] [address] [place] Chloride [Moles/Vol]109 mmol/RTvfr90-249Zhd [facility] Physician GroupComment on above:Performed By: #### CMP, CBC ####[place] [address] USACO2 [Moles/Vol]28.5 mmol/NEpjwii08.0-31.0The [facility] Hospital Physician GroupComment on above:Performed By: #### CMP, CBC ####[place] [address] [place] Creatinine [Mass/Vol]0.99 mg/dLNormal0.60-1.20The [facility] Comment on above:Performed By: #### CMP, CBC ####[place] [address] USACreatinine Clr Calc Fbqwivlj84.97 NormalThe [facility] Hospital Physician GroupComment on above:Result Comment: PERFORMED BY:[address] [place], [place] [phone] MEDICAL DIRECTORANNE OLGUIN M.D.Performed By: #### CMP, CBC ####[address] [address] [place] [address] USAEstimated GFR58.364 mL/MinNormalThe [facility] Physician GroupComment on above:Performed By: #### CMP, CBC ####[address] [address] USAGlucose [Mass/Vol]92 mg/kNUicamj28-175Qjp [facility] Physician GroupComment on above:Result Comment: Random Glucose Reference Range is dependent on time and content of last meal. Glucose of more than 200 mg/dL in a nonstressed, ambulatory subject supports the diagnosis of Diabetes Mellitus. ADA recommended reference rangePerformed By: #### CMP, CBC ####[address] [address] USAPotassium [Moles/Vol] 3.6 mmol/LNormal3.5-5.1The [facility] Physician [facility] HospitalComment on above:Performed By: #### CMP, CBC ####[address] [address] USASodium [Moles/Vol]144 mmol/RAirssk301-055Yji [facility] Physician GroupComment on above:Performed By: #### CMP, CBC ####[address] [address] USAUrea nitrogen [Mass/Vol]21 mg/dL Normal7-25The [facility] Physician GroupComment on above:Performed By: #### CMP, CBC ####[address] [address] [place] Protein [Mass/volume] in Serum or PlasmaOrdered By: Trish Christensen on 10-31-2024 Protein [Mass/Vol]5.0 g/dLLow6.4-8.9[facility]. [facility] HospitalComment on above:Performed By: #### CMP, CBC ####[place] [id number] USASerum globulin measurement by calculation (mass/volume)Ordered By: Trish Christensen on 20-77-0564Gyqurkul (S) [Mass/Vol]1.9 g/dLNormalMount St. Mary HospitalComment on above:Performed By: #### CMP, CBC ####[place] [address] USASerum or plasma albumin/globulin mass ratioOrdered By: Trish Christensen on 94-78-0349Oecsjjp/Globulin [Mass ratio]1.6 {ratio}NormalMount St. Mary HospitalComment on above:Performed By: #### CMP, CBC ####[place] [address] USABasic Metabolic Panel on 28-81-7116Chkiu gap [Moles/Vol]9.8 mmol/LNormal6.0-15.0The [facility] Physician GroupComment on above:Performed By: #### BMP ####[place] [address] USACalcium [Mass/Vol]10.3 mg/dL Normal8.6-10.3The [facility] Physician GroupComment on above:Performed By: #### BMP ####[place] [address] [place] Chloride [Moles/Vol]107 mmol/NUxafld86-039Fyr [facility] Physician GroupComment on above:Performed By: #### BMP ####[place] [address] USACO2 [Moles/Vol]29.8 mmol/CTnlcsh38.0-31.0The [facility] Physician GroupComment on above:Performed By: #### BMP ####[place] [address] USACreatinine [Mass/Vol] 1.03 mg/dLNormal0.60-1.20The [facility] Physician GroupComment on above:Performed By: #### BMP ####[place] [address] USACreatinine Clr Calc Ruoojskq15.53NormPalm Springs General [facility] Comment on above:Result Comment: PERFORMED BY:[place] [address] [place], [place] [phone] MEDICAL DIRECTORANNE OLGUIN M.D.Performed By: #### BMP ####[address] [address] USAEstimated GFR55.655 mL/Min NormalThe [facility] Physician GroupComment on above:Performed By: #### BMP ####[address] [address] USAGlucose [Mass/Vol]113 mg/zCIaql21-581Kan [facility] Physician GroupComment on above: Result Comment: Random Glucose Reference Range is dependent on time and content of last meal. Glucose of more than 200 mg/dL in a nonstressed, ambulatory subject supports the diagnosis of Diabetes Mellitus. ADA recommended reference rangePerformed By: #### BMP ####[address] [address] USAPotassium [Moles/Vol]3.6 mmol/LNormal3.5-5.1The [facility] Physician [facility] HospitalComment on above:Performed By: #### BMP ####[address] [address] USASodium [Moles/Vol]143 mmol/XCpmzhg447-831Tph [facility] Physician [facility] HospitalComment on above:Performed By: #### BMP ####[place] [id number] USAUrea nitrogen [Mass/Vol]21 mg/dLNormal7-25The [facility] Comment on above:Performed By: #### BMP ####[place] [phone] USABurr cells [Presence] in Blood by Light microscopyOrdered By: Trish Christensen on 98-75-9702Uvvr cells LM Ql (Bld)Slight [facility] HospitalComprehensive Metabolic Panelon 10-30-2024 Albumin [Mass/Vol]3.2 g/dLLow3.5-5.7The [facility] Physician GroupComment on above:Performed By: #### CMP, SCAN CBC ####[address] [place] [address] USAAlbumin/Globulin [Mass ratio]1.5 {ratio}Normal The [facility] Hospital Physician GroupComment on above:Performed By: #### CMP, SCAN CBC ####[address] [address] USAALP [Catalytic activity/Vol]106 U/AGefl99-182Zjn [facility] Physician GroupComment on above:Performed By: #### CMP, SCAN CBC ####[address] [address] [place] [address] USAALT [Catalytic activity/Vol]13 U/LNormal7-52 The [facility] Physician GroupComment on above:Performed By: #### CMP, SCAN CBC ####[address] [place] [address] USAAnion gap [Moles/Vol]7.6 mmol/LNormal6.0-15.0The [facility] Physician GroupComment on above:Performed By: #### CMP, SCAN CBC ####[address] [address] USAAST [Catalytic activity/Vol]12 U/HRrz59-91Wpy [facility] Physician GroupComment on above:Performed By: #### CMP, SCAN CBC ####[address] [address] [place] Bilirubin [Mass/Vol]0.4 mg/dLNormal0.3-1.0The [facility] Physician GroupComment on above:Performed By: #### CMP, SCAN CBC ####[address] [address] USACalcium [Mass/Vol]9.9 mg/dLNormal8.6-10.3The [facility] Physician GroupComment on above:Performed By: #### CMP, SCAN CBC ####[address] [address] [place] Chloride [Moles/Vol]108 mmol/ATfqu75-499Bir [facility] Physician GroupComment on above:Performed By: #### CMP, SCAN CBC ####[address] [place] [address] USACO2 [Moles/Vol]32.1 mmol/LHigh21.0-31.0The [facility] Physician GroupComment on above:Performed By: #### CMP, SCAN CBC ####[address] [place] [address] [place] Creatinine [Mass/Vol]1.03 mg/dLNormal0.60-1.20The [facility] Comment on above:Performed By: #### CMP, SCAN CBC ####[address] [place] [address] USACreatinine Clr Calc Vgkgelfi08.75 NormalThe [facility] Physician GroupComment on above:Result Comment: PERFORMED BY:[address]ETAnitaTR[place], [place] [phone] MEDICAL DIRECTORANNE OLGUIN M.D.Performed By: #### CMP, SCAN CBC ####[address] [address] USAEstimated GFR55.655 mL/MinNormalThe [facility] Physician [facility] HospitalComment on above:Performed By: #### CMP, SCAN CBC ####[address] [address] USAGlobulin (S) [Mass/Vol]2.1 g/dLNormKettering Health Troye [facility] Physician GroupComment on above:Performed By: #### CMP, SCAN CBC ####[address] [address] USAGlucose [Mass/Vol]114 mg/vGLyvz17-439Mvm [facility] Physician GroupComment on above: Result Comment: Random Glucose Reference Range is dependent on time and content of last meal. Glucose of more than 200 mg/dL in a nonstressed, ambulatory subject supports the diagnosis of Diabetes Mellitus. ADA recommended reference rangePerformed By: #### CMP, SCAN CBC ####[address] [place] [address] USAPotassium [Moles/Vol]3.7 mmol/LNormal3.5-5.1 The [facility] Physician GroupComment on above:Performed By: #### CMP, SCAN CBC ####[place] [address] USAProtein [Mass/Vol]5.3 g/dLLow6.4-8.9The [facility] Physician GroupComment on above: Performed By: #### CMP, SCAN CBC ####[place] [address] USASodium [Moles/Vol]144 mmol/GOxfzvu784-350Qer [facility] Physician GroupComment on above:Performed By: #### CMP, SCAN CBC ####[place] [address] USAUrea nitrogen [Mass/Vol]21 mg/dLNormal7-25The [facility] Physician GroupComment on above:Performed By: #### CMP, SCAN CBC ####[place] [address] USAOvalocytes [Presence] in Blood by Light microscopyOrdered By: Trish Chrisetnsen on 66-38-2679Prfkethqyf LM Ql (Bld)[facility] HospitalPoikilocytosis [Presence] in Blood by Light microscopyOrdered By: Trish Christensen on 01-25-6868Scfholwuapmmaw LM Ql (Bld) [facility] HospitalPolychromasia [Presence] in Blood by Light microscopyOrdered By: Trish Christensen on 06-81-7380Jyaixmjoiykky LM Ql (Bld) [facility] Hospitalcan and CBCon 18-49-2056Yeuelsogv (Bld) [#/Vol]0.1 10*3/uLNormal0.0-0.2The [facility] Physician GroupComment on above: Performed By: #### CMP, SCAN CBC ####[place] [address] USABasophils/100 WBC (Bld)0.4 %Normal.The [facility] Physician GroupComment on above:Performed By: #### CMP, SCAN CBC ####[address] [place] [address] USACrenated RBCSlight NormalThe [facility] Physician GroupComment on above:Performed By: #### CMP, SCAN CBC ####[place] [id number] [place] Eosinophils (Bld) [#/Vol]0.8 10*3/uLHigh0.0-0.45The [facility] Comment on above:Performed By: #### CMP, SCAN CBC ####[place] [address] USAEosinophils/100 WBC (Bld)4.3 %Normal. The [facility] Physician GroupComment on above:Performed By: #### CMP, SCAN CBC ####[address] Erythrocyte distribution width (RBC) [Ratio]15.2 %Gkpfrl34.9-15.3The [facility] Physician GroupComment on above:Performed By: #### CMP, SCAN CBC ####[place] [address] USAHematocrit (Bld) [Volume fraction]34.5 %Bjprhc28.0-46.4The [facility] Physician GroupComment on above:Performed By: #### CMP, SCAN CBC ####[place] [address] USAHemoglobin (Bld) [Mass/Vol]11.2 g/dLLow 11.8-15.4The [facility] Physician GroupComment on above:Performed By: #### CMP, SCAN CBC ####[place] [id number] USALarge PlateletsSlightNormalThe [facility] Physician GroupComment on above: Result Comment: PERFORMED BY:[address]NA [place]TE[place]NERE[place], [place] [phone] MEDICAL DIRECTORANNE MEJIA M.D.Performed By: #### CMP, SCAN CBC ####[place] [id number] USALymphocytes (Bld) [#/Vol]1.6 10*3/uL Normal1.00-4.8The [facility] Physician GroupComment on above:Performed By: #### CMP, SCAN CBC ####[address] [address] USALymphocytes/100 WBC (Bld)8.5 %Normal.The [facility] Comment on above:Performed By: #### CMP, SCAN CBC ####[place] [id number] [facility] (RBC) [Entitic mass]31.1 pgNormal 24.7-34.3The [facility] Physician GroupComment on above:Performed By: #### CMP, SCAN CBC ####[address] [address] [facility]V (RBC) [Entitic vol]95.4 lTWraezs61-743Mfx [facility] Physician [facility] Comment on above:Performed By: #### CMP, SCAN CBC ####[place] [id number] USAMean Corpuscular HGB Conc32.6 g/dL Safckd75.0-35.0The [facility] Physician [facility] HospitalComment on above:Performed By: #### CMP, SCAN CBC ####[place] [id number] USAMonocytes (Bld) [#/Vol]1.4 10*3/uLHigh0.0-0.8The [facility] Physician GroupComment on above:Performed By: #### CMP, SCAN CBC ####[place] [id number] USAMonocytes/100 WBC (Bld)7.1 % Normal.The [facility] Physician GroupComment on above:Performed By: #### CMP, SCAN CBC ####[place] [id number] USANeutrophils (Bld) [#/Vol]15.2 10*3/uLHigh1.8-7.7The [facility] Physician [facility] Comment on above:Performed By: #### CMP, SCAN CBC ####[address] [address] USANeutrophils/100 WBC (Bld)79.7 %Normal .The [facility] Physician GroupComment on above:Performed By: #### CMP, SCAN CBC ####[address] [address] USANRBC% 0.2 /100{WBC}Normal0-0.5The [facility] Physician GroupComment on above:Performed By: #### CMP, SCAN CBC ####[address] [address] USAOvalocytesSSelect Specialty [facility] Physician Group Comment on above:Performed By: #### CMP, SCAN CBC ####[address] [address] USAPlatelet EstimateNormalNormalNormal [facility] Physician GroupComment on above:Performed By: #### CMP, SCAN CBC ####[place] [id number] [place] Platelet mean volume (Bld) [Entitic vol]10.7 fLNormal6.3-10.7The [facility] Physician GroupComment on above:Performed By: #### CMP, SCAN CBC ####[address] [address] USAPlatelets (Bld) [#/Vol]263 10*3/ePYtpuht435-944Ygv [facility] Physician GroupComment on above: Performed By: #### CMP, SCAN CBC ####[address] [address] USAPoikilocytosisSaudubon county memorial hospital and clinicsNoUNC Health Chatham Physician GroupComment on above:Performed By: #### CMP, SCAN CBC ####[address] [address] USAPolychromasiaSSelect Specialty Hospital [facility] Physician GroupComment on above:Performed By: #### CMP, SCAN CBC ####[address] [address] USARBC (Bld) [#/Vol]3.61 10*6/uLNormal3.60-5.00The [facility] Physician [facility] HospitalComment on above:Performed By: #### CMP, SCAN CBC ####[address] [place] [address] USASchistocytesSlightNormalThe [facility] Physician [facility] HospitalComment on above:Performed By: #### CMP, SCAN CBC ####[address] [address] USAStomatocytesSlight NormalThe [facility] Physician GroupComment on above:Performed By: #### CMP, SCAN CBC ####[address] [address] [place] WBC (Bld) [#/Vol]19.1 10*3/uLHigh3.8-11.6The [facility] Physician [facility] HospitalComment on above:Performed By: #### CMP, SCAN CBC ####[address] [address] USASchistocytes [Presence] in Blood by Light microscopyOrdered By: Trish Christensen on 35-49-7099Cxwcueadwsgk LM Ql (Bld)[facility] Hospitaltomatocytes [Presence] in Blood by Light microscopyOrdered By: Trish Christensen on 60-40-0897Exoqqpcyxpmx LM Ql (Bld)[facility] HospitalAmmonia [Moles/volume] in PlasmaOrdered By: José Antonio Lerma on 50-44-6535Tfzlazo (P) [Moles/Vol]29 umol/TEhndzu23-31MmvpbgugrMount St. Mary HospitalComment on above:Result Comment: PERFORMED BY:[address] [place], [place] [phone] MEDICAL DIRECTORANNE OLGUIN M.D.Performed By: #### AMM ####[address] [address] USAArterial Blood Gason 25-66-2931PCS Base Excess5.4 mmol/LHigh-3.0-3.0The [facility] Physician [facility] Comment on above:Performed By: #### ABG ####Point of Care testing,ABG Frac Inspired C3BlcyfeStvUNC Health Chatham Physician GroupComment on above:Performed By: #### ABG ####Point of Care testing,ABG Liter Rcor6BGrbjjcVca [facility] Physician GroupComment on above:Performed By: #### ABG ####Point of Care testing,ABG Oxygen Content7.0 mmol/LNormal6.6-9.7The [facility] Physician GroupComment on above:Performed By: #### ABG ####Point of Care testing,ABG Oxygen Xqhmhmpyet33.1 %Low95.0-100.0The [facility] Physician GroupComment on above:Performed By: #### ABG ####Point of Care testing,ABG JGK179.3 mm[Hg]Egwjpu96.0-45.0The [facility] Physician GroupComment on above:Performed By: #### ABG ####Point of Care testing,ABG PH7.74Xtgljx9.35-7.45The [facility] Physician GroupComment on above: Performed By: #### ABG ####Point of Care testing,ABG PO261.0 mm[Hg]Low80.0-100.0 The [facility] Physician GroupComment on above:Performed By: #### ABG ####Point of Care testing,Oxygen DeviceNasal CannulaHCA Florida Pasad[facility] Hospital Physician Group Comment on above:Performed By: #### ABG ####Point of Care testing,Respiratory CriticalNoUNC Health Chatham Physician GroupComment on above:Result Comment: Critical Value called on: 10/29/2024 at 12:14PERFORMED BY:[id number] [place], [place] [phone] MEDICAL DIRECTORANNE OLGUIN M.D.Performed By: #### ABG ####Point of Care testing,VBG Draw SiteRight RadialHCA Florida Pasadena Hospital Physician GroupComment on above:Performed By: #### ABG ####Point of Care testing,Arterial Blood GasOrdered By: Trish Christensen on 32-92-9134MF1 [Moles/Vol]31.4 mmol/LHigh23.0-27.0[facility] HospitalComment on above:Performed By: #### ABG ####Point of Care testing,HCO3 (Bld) [Moles/Vol]30.0 mmol/LHigh23.0-29.0[facility] HospitalComment on above:Performed By: #### ABG ####Point of Care testing, Basic Metabolic Panelon 47-32-3240Dgimr gap [Moles/Vol]8.3 mmol/LNormal6.0-15.0 The [facility] Physician GroupComment on above:Performed By: #### BMP ####[address] [address] USACalcium [Mass/Vol]10.2 mg/dLNormal8.6-10.3The [facility] Physician [facility] HospitalComment on above:Performed By: #### BMP ####[address] [address] USAChloride [Moles/Vol]111 mmol/QHmqg95-257Qts [facility] Physician [facility] HospitalComment on above:Performed By: #### BMP ####[address] [address] USACO2 [Moles/Vol]31.6 mmol/LHigh21.0-31.0The [facility] Physician [facility] HospitalComment on above:Performed By: #### BMP ####[address] [address] USACreatinine [Mass/Vol]1.06 mg/dLNormal0.60-1.20The [facility] Comment on above:Performed By: #### BMP ####[address] [address] USACreatinine Clr Calc Ubveykhl52.80NormPalm Springs General Hospital Physician GroupComment on above:Result Comment: PERFORMED BY:[place] [address] [place], [place] [phone] MEDICAL DIRECTORANNE OLGUIN M.D.Performed By: #### BMP ####[address] [place] [address] USAEstimated GFR53.770 mL/MinNormalThe [facility] Physician GroupComment on above:Performed By: #### BMP ####[place] [address] [place] Glucose [Mass/Vol]123 mg/oGNief30-235Ogm [facility] Physician GroupComment on above:Result Comment: Random Glucose Reference Range is dependent on time and content of last meal. Glucose of more than 200 mg/dL in a nonstressed, ambulatory subject supports the diagnosis of Diabetes Mellitus. ADA recommended reference rangePerformed By: #### BMP ####[place] [address] USAPotassium [Moles/Vol]3.9 mmol/LNormal3.5-5.1 The [facility] Physician GroupComment on above:Performed By: #### BMP ####[place] [address] USASodium [Moles/Vol]147 mmol/GXddo962-687Oyz [facility] Physician GroupComment on above: Performed By: #### BMP ####[place] [id number] USAUrea nitrogen [Mass/Vol]23 mg/dLNormal7-25The [facility] Physician GroupComment on above:Performed By: #### BMP ####[place] [address] USAAnion gap [Moles/Vol] 8.6 mmol/LNormal6.0-15.0The [facility] Physician GroupComment on above:Performed By: #### BMP ####[address] [address] USACalcium [Mass/Vol]10.2 mg/dLNormal8.6-10.3The [facility] Comment on above:Performed By: #### BMP ####[address] [address] USAChloride [Moles/Vol]114 mmol/YJyga62-361Ozw [facility] Physician GroupComment on above:Performed By: #### BMP ####[facility] [place] [address] USACO2 [Moles/Vol]31.4 mmol/LHigh21.0-31.0The [facility] Physician GroupComment on above:Performed By: #### BMP ####[address] [place] [address] USACreatinine [Mass/Vol]1.02 mg/dLNormal0.60-1.20The [facility] Comment on above:Performed By: #### BMP ####[address] [address] USACreatinine Clr Calc Jrwmcddi39.09NormPalm Springs General Hospital Physician [facility] HospitalComment on above:Result Comment: PERFORMED BY:[place] [address] [address] [place], [place] [phone] MEDICAL DIRECTORANNE OLGUIN M.D.Performed By: #### BMP ####[address] [address] USAEstimated GFR56.310 mL/MinNormPalm Springs General Hospital Physician [facility] HospitalComment on above:Performed By: #### BMP ####[address] [address] [place] Glucose [Mass/Vol]122 mg/hFAaks06-109Qaq [facility] Physician GroupComment on above:Result Comment: Random Glucose Reference Range is dependent on time and content of last meal. Glucose of more than 200 mg/dL in a nonstressed, ambulatory subject supports the diagnosis of Diabetes Mellitus. ADA recommended reference rangePerformed By: #### BMP ####[address] [address] USAPotassium [Moles/Vol]4.0 mmol/LNormal3.5-5.1 The [facility] Physician GroupComment on above:Performed By: #### BMP ####[address] [address] USASodium [Moles/Vol]150 mmol/WGckz790-937Cop [facility] Physician GroupComment on above: Performed By: #### BMP ####[address] [address] USAUrea nitrogen [Mass/Vol]24 mg/dLNormal7-25The [facility] Physician GroupComment on above:Performed By: #### BMP ####[address] [address] USAAnion gap [Moles/Vol] 7.8 mmol/LNormal6.0-15.0The [facility] Physician GroupComment on above:Performed By: #### HEPATIC, BMP, TSH3 ####[address] [address] USACalcium [Mass/Vol]10.2 mg/dLNormal8.6-10.3The [facility] Physician GroupComment on above:Performed By: #### HEPATIC, BMP, TSH3 ####[address] [address] [place] Chloride [Moles/Vol]114 mmol/VXbgi93-202Gqs [facility] Physician GroupComment on above:Performed By: #### HEPATIC, BMP, TSH3 ####[address] [address] USACO2 [Moles/Vol]32.2 mmol/LHigh 21.0-31.0The [facility] Physician GroupComment on above:Performed By: #### HEPATIC, BMP, TSH3 ####[address] [address] USACreatinine [Mass/Vol]1.11 mg/dLNormal0.60-1.20The [facility] Physician GroupComment on above:Performed By: #### HEPATIC, BMP, TSH3 ####[address] [address] [place] Creatinine Clr Calc Rqqeqjyk58.32NormKettering Health Troye [facility] Physician GroupComment on above:Performed By: #### HEPATIC, BMP, TSH3 ####[address] [address] USAEstimated GFR50.876 mL/MinNormKettering Health Troye [facility] Physician GroupComment on above:Performed By: #### HEPATIC, BMP, TSH3 ####[place] [id number] USAGlucose [Mass/Vol]149 mg/wFPrbz09-474Rdm [facility] Physician GroupComment on above: Result Comment: Random Glucose Reference Range is dependent on time and content of last meal. Glucose of more than 200 mg/dL in a nonstressed, ambulatory subject supports the diagnosis of Diabetes Mellitus. ADA recommended reference rangePerformed By: #### HEPATIC, BMP, TSH3 ####[place] [id number] USAPotassium [Moles/Vol]4.0 mmol/LNormal 3.5-5.1The [facility] Physician [facility] HospitalComment on above:Performed By: #### HEPATIC, BMP, TSH3 ####[place] [id number] USASodium [Moles/Vol]150 mmol/LSignificant change ww693-987Zfe [facility] Physician [facility] HospitalComment on above:Performed By: #### HEPATIC, BMP, TSH3 ####[place] [id number] USAUrea nitrogen [Mass/Vol]26 mg/dLHigh7-25The [facility] SystemsComment on above:Performed By: #### HEPATIC, BMP, TSH3 ####[place] [id number] USABilirubin.direct [Mass/volume] in Serum or PlasmaOrdered By: José Antonio Lerma on 74-57-6155Ppkdhsjwz.direct [Mass/Vol] 0.10 mg/dL0.03-0.18FSCCI Hospital LimaCT head/brain wo conon 46-59-8488EX head/brain wo conNormalThe [facility] Health SystemsComprehensive Metabolic Panelon 47-17-9945Nkdulbs [Mass/Vol]3.6 g/dLNormal3.5-5.7The [facility] Physician [facility] HospitalComment on above:Performed By: #### CMP, DIFF CBC ####[place] [id number] USAAlbumin/Globulin [Mass ratio]1.6 {ratio}NormalThe [facility] Physician [facility] HospitalComment on above: Performed By: #### CMP, DIFF CBC ####[address] [address] USAALP [Catalytic activity/Vol]126 U/KKsfz95-639Lsv [facility] Physician GroupComment on above:Performed By: #### CMP, DIFF CBC ####[address] [address] USAALT [Catalytic activity/Vol]15 U/LNormal7-52The [facility] Physician GroupComment on above:Performed By: #### CMP, DIFF CBC ####[address] [address] USAAnion gap [Moles/Vol]10.8 mmol/LNormal6.0-15.0 The [facility] Physician GroupComment on above:Performed By: #### CMP, DIFF CBC ####[address] [address] USAAST [Catalytic activity/Vol]18 U/XPmdqqz07-46Ehw [facility] Physician GroupComment on above:Performed By: #### CMP, DIFF CBC ####[address] [address] USABilirubin [Mass/Vol]0.5 mg/dLNormal0.3-1.0The [facility] Physician GroupComment on above:Performed By: #### CMP, DIFF CBC ####[address] [address] USACalcium [Mass/Vol]10.6 mg/dLHigh8.6-10.3The [facility] Physician GroupComment on above: Performed By: #### CMP, DIFF CBC ####[address] [address] USAChloride [Moles/Vol]120 mmol/PApvz94-523Kko [facility] Physician GroupComment on above:Performed By: #### CMP, DIFF CBC ####[address] [address] USACO2 [Moles/Vol]28.7 mmol/DIkffbm09.0-31.0The [facility] Physician GroupComment on above:Performed By: #### CMP, DIFF CBC ####[facility] [place] [address] USACreatinine [Mass/Vol]1.29 mg/dLHigh0.60-1.20 The [facility] Physician GroupComment on above:Performed By: #### CMP, DIFF CBC ####[address] [address] [place] Creatinine Clr Calc Jbgxahot61.50NoUNC Health Chatham Physician GroupComment on above:Result Comment: PERFORMED BY:[address] [place], [place] [phone] MEDICAL DIRECTORANNE MEJIA M.D.Performed By: #### CMP, DIFF CBC ####[place] [id number] USAEstimated GFR42.482 mL/MinNoUNC Health Chatham Physician [facility] HospitalComment on above:Performed By: #### CMP, DIFF CBC ####[place] [id number] [place] Globulin (S) [Mass/Vol]2.3 g/dLHCA Florida Pasadena Hospital Physician [facility] HospitalComment on above:Performed By: #### CMP, DIFF CBC ####[place] [address] USAGlucose [Mass/Vol]112 mg/tVHzrk36-062Jbj [facility] Physician GroupComment on above:Result Comment: Random Glucose Reference Range is dependent on time and content of last meal. Glucose of more than 200 mg/dL in a nonstressed, ambulatory subject supports the diagnosis of Diabetes Mellitus. ADA recommended reference rangePerformed By: #### CMP, DIFF CBC ####[place] [id number] [place] Potassium [Moles/Vol]3.5 mmol/LNormal3.5-5.1The [facility] Physician GroupComment on above:Performed By: #### CMP, DIFF CBC ####[place] [address] USAProtein [Mass/Vol]5.9 g/dLLow6.4-8.9 The [facility] Physician GroupComment on above:Performed By: #### CMP, DIFF CBC ####[address] [address] USASodium [Moles/Vol]156 mmol/LOff scale lzdx981-157Hlj [facility] Physician GroupComment on above:Result Comment: Critical Result Called to and read back by: NOT FIRST CRITICAL at: 10/29/2024 05:59:08 by:JACOBPerformed By: #### CMP, DIFF CBC ####[place] [id number] USAUrea nitrogen [Mass/Vol]33 mg/dLHigh7-25The [facility] Physician GroupComment on above:Performed By: #### CMP, DIFF CBC ####[place] [id number] USADiff and CBCon 45-49-2606QggjurrqbhmuQmjknn NormalThe [facility]ician [facility] HospitalComment on above:Performed By: #### CMP, DIFF CBC ####[place] [address] [place] Eosinophils/100 WBC (Bld)1 %Normal1-3The [facility] Physician GroupComment on above:Performed By: #### CMP, DIFF CBC ####[place] [id number] USAErythrocyte distribution width (RBC) [Ratio] 15.9 %High11.9-15.3The [facility] Physician GroupComment on above:Performed By: #### CMP, DIFF CBC ####[address] [address] USAGiant Platelet Tally9 /100{WBC}NormalThe [facility] Comment on above:Performed By: #### CMP, DIFF CBC ####[address] [address] USAHematocrit (Bld) [Volume fraction] 38.5 %Lmvikb69.0-46.4The [facility] Physician GroupComment on above:Performed By: #### CMP, DIFF CBC ####[address] [address] USAHemoglobin (Bld) [Mass/Vol]12.7 g/oLBqhlox87.8-15.4The [facility] Physician GroupComment on above:Performed By: #### CMP, DIFF CBC ####[address] [address] USALarge PlateletsSlight NormalThe [facility] Physician GroupComment on above:Result Comment: PERFORMED BY:[address] [place]GerardoRatnaNERE[place], [place] [phone] MEDICAL TYESHA OLGUIN M.D.Performed By: #### CMP, DIFF CBC ####[address] [address] USALymphocytes/100 WBC (Bld)4 %Qoh80-14Pzx [facility] Comment on above:Performed By: #### CMP, DIFF CBC ####[address] [address] [facility] (RBC) [Entitic mass]31.5 pgNormal 24.7-34.3The [facility] Physician GroupComment on above:Performed By: #### CMP, DIFF CBC ####[address] [address] [facility]V (RBC) [Entitic vol]95.9 xYBpckeh72-572Tti [facility] Comment on above:Performed By: #### CMP, DIFF CBC ####[address] [address] USAMean Corpuscular HGB Conc32.9 g/dL Nkelzd17.0-35.0The [facility] Physician GroupComment on above:Performed By: #### CMP, DIFF CBC ####[address] [address] USAMonocytes/100 WBC (Bld)4 %Normal2-11The [facility] Comment on above:Performed By: #### CMP, DIFF CBC ####[address] [address] USAOvalocytesSlightNormalThe [facility] Physician GroupComment on above:Performed By: #### CMP, DIFF CBC ####[address] [address] USAPlatelet Estimate NormalNormalNormPalm Springs General Hospital Physician [facility] HospitalComment on above:Performed By: #### CMP, DIFF CBC ####[address] [address] USAPlatelet mean volume (Bld) [Entitic vol]10.1 fLNormal6.3-10.7The [facility] Physician GroupComment on above:Result Comment: PERFORMED BY:[address] [place], [place] [phone] MEDICAL DIRECTORANNE OLGUIN M.D.Performed By: #### CMP, DIFF CBC ####[address] [address] [place] Platelets (Bld) [#/Vol]280 10*3/wPCprmdb458-368Jhf [facility] Comment on above:Performed By: #### CMP, DIFF CBC ####[address] [address] USAPoikilocytosisSlightNormPalm Springs General Hospital Physician [facility] HospitalComment on above:Performed By: #### CMP, DIFF CBC ####[address] [address] [place] PolychromasiaSlightNormPalm Springs General Hospital Physician [facility] HospitalComment on above:Performed By: #### CMP, DIFF CBC ####[address] [address] USARBC (Bld) [#/Vol]4.01 10*6/uLNormal3.60-5.00The [facility] Physician [facility] HospitalComment on above:Performed By: #### CMP, DIFF CBC ####[address] [address] [place] Segmented neutrophils/100 WBC (Bld)91 %Skoj30-82Rsp [facility] Comment on above:Performed By: #### CMP, DIFF CBC ####[address] [address] USASpherocytesSlightNormalThe [facility]ician [facility] HospitalComment on above:Performed By: #### CMP, DIFF CBC ####[place] [id number] USAWBC (Bld) [#/Vol]20.9 10*3/uLHigh3.8-11.6The [facility] Physician GroupComment on above:Performed By: #### CMP, DIFF CBC ####[place] [address] USAHepatic Panelon 78-22-3151Lsbeqpc [Mass/Vol]3.2 g/dLLow3.5-5.7The [facility] Physician GroupComment on above:Performed By: #### HEPATIC, BMP, TSH3 ####[place] [address] [place] Albumin/Globulin [Mass ratio]1.6 {ratio}NormalThe [facility] Comment on above:Performed By: #### HEPATIC, BMP, TSH3 ####[place] [address] USAALP [Catalytic activity/Vol] 104 U/NYahzdy68-081Tsd [facility] Physician GroupComment on above:Performed By: #### HEPATIC, BMP, TSH3 ####[place] [address] USAALT [Catalytic activity/Vol]14 U/LNormal7-52The [facility] Physician GroupComment on above:Performed By: #### HEPATIC, BMP, TSH3 ####[place] [address] USAAST [Catalytic activity/Vol]16 U/TCavboc42-94Mms [facility] Physician [facility] HospitalComment on above:Performed By: #### HEPATIC, BMP, TSH3 ####[place] [address] USABilirubin [Mass/Vol]0.4 mg/dLNormal 0.3-1.0The [facility] Physician GroupComment on above:Performed By: #### HEPATIC, BMP, TSH3 ####[place] [address] USABilirubin,Indirect0.3 mg/dLNoUNC Health Chatham Physician [facility] HospitalComment on above:Performed By: #### HEPATICANA CRISTINA, TSH3 ####[address] [address] [place] [address] USABilirubin.indirect [Mass/Vol]0.10 mg/dLNormal0.03-0.18The [facility] Physician GroupComment on above:Performed By: #### HEPATICANA CRISTINA, TSH3 ####[facility] [address] [place] [address] USAGlobulin (S) [Mass/Vol]2.0 g/dLNormPalm Springs General Hospital Physician [facility] HospitalComment on above:Performed By: #### HEPATICANA CRISTINA, TSH3 ####[address] [place] [address] USAProtein [Mass/Vol]5.2 g/dLLow6.4-8.9The [facility] Physician GroupComment on above: Performed By: #### HEPATICANA CRISTINA, TSH3 ####[place] [address] USANo Panel InformationOrdered By: Trish Christensen on 10-83-4128Hmbzgooi Blood Base Excess5.4 mmol/LHigh-3.0-3.0[facility] Mary HospitalArterial Blood Oxygen Content7.0 mmol/L6.6-9.7FSCCI Hospital LimaArterial Blood Oxygen Czpvdzmcua12.1 %Low95.0-100.0[facility]. Mary HospitalArterial Blood Partial Pressure CO244.3 mm[Hg]35.0-45.[address] [facility] HospitalArterial Blood Partial Pressure O261.0 mm[Hg] Low80.0-100.0[facility] Mary HospitalArterial Blood pH7.457.35-7.[address] [facility] HospitalBlood Gas Critical ValueSee commentMount St. Mary HospitalComment on above:Critical Value called on: 10/29/2024 at 12:14Blood Gas Liter Flow5l L/minMount St. Mary HospitalBlood Gas Sample SiteRight radialMount St. Mary HospitalFiO2Na %[facility] St. Mary HospitalOxygen Delivery DeviceNasal cannulaMiami Valley Hospitalerum or plasma non-glucuronidated bilirubin measurement (mass/volume)Ordered By: José Antonio Lerma on 27-37-8804Jfiwmkggz.indirect [Mass/Vol] 0.3 mg/dLMiami Valley Hospitalpherocytes [Presence] in Blood by Light microscopyOrdered By: Trish Christensen on 79-73-4181Akjshiehtfi LM Ql (Bld) SlightMount St. Mary HospitalThyrotropin [Units/volume] in Serum or PlasmaOrdered By: José Antonio Lerma on 34-37-8824ZIQ Qn1.15 m[IU]/LNormal0.45-5.[address] [facility] HospitalComment on above:Result Comment: PERFORMED BY:[place] [address] [place], [place] [phone] MEDICAL DIRECTORANNE OLGUIN M.D.Performed By: #### HEPATIC, BMP, TSH3 ####[address] [address] USATroponin I High Sensitivityon 25-12-4650Zccpxzfu I High Sensitivity 63Off scale high0-15The [facility] Physician GroupComment on above:Order Comment: Comment CADResult Comment: Critical Result : Called to and read back by: ALENA WORKMAN at: 10/29/2024 05:36:07 by:JACOB The Troponin units of report have been changed to meet the Chest Pain Accreditation requirement, element EC5.M1l2. Troponin units are changed from pg/ml to ng/L. Also, the decimal is removed and results are in whole numbers.PERFORMED BY:[place] [address] [place], [place] [phone] MEDICAL DIRECTORANNE MEJIA M.D.Performed By: #### HS TROP ####[address] [address] USATroponin I.cardiac [Mass/volume] in Serum or Plasma by Detection limit <= 0.01 ng/mLOrdered By: Trish Christensen on 10-29-2024 Troponin I.cardiac DL <= 0.01 ng/mL [Mass/Vol]63 ng/LCritically high0-[address] [facility] HospitalComment on above:Critical Result : Called to and read back by: ALENA WORKMAN at: 10/29/2024 05:36:07 by:DHThe Troponin units of report have been changed to meet the Chest Pain Accreditation requirement, element EC5.M1l2. Troponin units are changed from pg/ml to ng/L. Also, the decimal is removed and results are in whole numbers.Appearance of UrineOrdered By: Trish Christensen on 75-92-4314Luioeqjhmd (U)ClearNoalCHolmes County Joel Pomerene Memorial HospitalComment on above:Order Comment: Name Collection Type:: [place] CatheterPerformed By: #### ADDONUAPLUS ####[facility] [address] [place] [address] USAArterial Blood Gason 47-39-4722QPU Base Excess 2.5 mmol/LNormal-3.0-3.0The [facility] Physician GroupComment on above:Performed By: #### ABG ####Point of Care testing,ABG Frac Inspired O2100 %NormalThe [facility] Physician GroupComment on above:Performed By: #### ABG ####Point of Care testing,ABG Liter Rhrw43LlmnzeTkx [facility] Physician GroupComment on above:Performed By: #### ABG ####Point of Care testing,ABG Oxygen Content7.7 mmol/LNormal6.6-9.7The [facility] Physician GroupComment on above:Performed By: #### ABG ####Point of Care testing,ABG Oxygen Rckttvrzae34.2 %Gilqsf22.0-100.0 The [facility] Physician GroupComment on above:Performed By: #### ABG ####Point of Care testing,ABG HLL831.8 mm[Hg]High35.0-45.0The [facility] Comment on above:Performed By: #### ABG ####Point of Care testing,ABG PH7.39 Normal7.35-7.45The [facility] Physician GroupComment on above:Performed By: #### ABG ####Point of Care testing,ABG PO279.7 mm[Hg]Low80.0-100.0The [facility] Physician GroupComment on above:Performed By: #### ABG ####Point of Care testing,CO2 [Moles/Vol]29.6 mmol/LHigh23.0-27.0The [facility] Comment on above:Performed By: #### ABG ####Point of Care testing,HCO3 (Bld) [Moles/Vol]28.2 mmol/VJpxuhq10.0-29.0The [facility] Physician GroupComment on above:Performed By: #### ABG ####Point of Care testing,Oxygen DeviceNasal CannulaNormPalm Springs General Hospital Physician GroupComment on above:Performed By: #### ABG ####Point of Care testing,Respiratory CriticalNormPalm Springs General Hospital Physician GroupComment on above:Result Comment: Critical Value called on: 10/28/2024 at 16:05PERFORMED BY:[id number] [place] [place], [place] [phone] MEDICAL DIRECTORANNE OLGUIN M.D. Performed By: #### ABG ####Point of Care testing,VBG Draw SiteRight RadialNormal The [facility] Physician GroupComment on above:Performed By: #### ABG ####Point of Care testing,Bacteria [Presence] in Urine by AutomatedOrdered By: Trish Christensen on 52-77-7621Nusmwyjr Auto Ql (U)Rare [HPF]None SeenMount St. Mary HospitalBand form neutrophils/100 leukocytes in Blood by Manual count Ordered By: Trish Christensen on 15-78-6649Zosb form neutrophils/100 WBC (Bld)2 % Normal0-5FSCCI Hospital LimaComment on above:Performed By: #### CUBLD, LACTIC, DIFF CBC ####[facility] [address] [place] [address] USABasic Metabolic Panelon 51-16-1333Kmqdp gap [Moles/Vol]12.0 mmol/LNormal6.0-15.0The [facility] Physician GroupComment on above:Performed By: #### BMP ####[facility] [place] [address] USACalcium [Mass/Vol]10.3 mg/dLNormal8.6-10.3The [facility] Physician GroupComment on above:Performed By: #### BMP ####[address] [place] [address] USAChloride [Moles/Vol] 122 mmol/FInay70-456Afu [facility] Physician GroupComment on above:Performed By: #### BMP ####[address] [address] USACO2 [Moles/Vol]27.9 mmol/RXcfetu47.0-31.0The [facility] Physician GroupComment on above:Performed By: #### BMP ####[address] [address] USACreatinine [Mass/Vol]1.27 mg/dLHigh0.60-1.20The [facility] Physician GroupComment on above:Performed By: #### BMP ####[address] [address] USACreatinine Clr Calc Aqxmaouc97.97NormPalm Springs General Hospital Physician GroupComment on above:Result Comment: PERFORMED BY:[place] [address] [place] [place], [place] [phone] MEDICAL DIRECTORANNE OLGUIN M.D. Performed By: #### BMP ####[address] [address] USAEstimated GFR43.286 mL/MinNoUNC Health Chatham Physician [facility] HospitalComment on above:Performed By: #### BMP ####[address] [address] USAGlucose [Mass/Vol]114 mg/dL Tbjh66-644Mgh [facility] Physician GroupComment on above:Result Comment: Random Glucose Reference Range is dependent on time and content of last meal. Glucose of more than 200 mg/dL in a nonstressed, ambulatory subject supports the diagnosis of Diabetes Mellitus. ADA recommended reference rangePerformed By: #### BMP ####[address] [address] USAPotassium [Moles/Vol]3.9 mmol/LNormal3.5-5.1The [facility] Comment on above:Performed By: #### BMP ####[address] [address] USASodium [Moles/Vol]158 mmol/LOff scale high 136-145The [facility] Physician GroupComment on above:Result Comment: Critical Result Called to and read back by: NOT FIRST CRITICAL at: 10/28/2024 22:33:04 by:LFMPerformed By: #### BMP ####[place] [id number] USAUrea nitrogen [Mass/Vol]39 mg/dLHigh7-25The [facility] Hospital Physician GroupComment on above:Performed By: #### BMP ####[place] [id number] USABilirubin Test strip Ql (U)Ordered By: Trish Christensen on 97-10-2876Gnoqeixcs Ql (U)NegativeNegative [facility]. Mary HospitalBioFire Not Detectedon 04-95-2537CoxQpbe Not DetectedNot detectedNormalNot DetecteThe [facility] Hospital Physician GroupComment on above:Result Comment: This is a duplicate RP2.1 COVID (PCR) result to be used for statistical tracking purpose only.PERFORMED BY:[place] [address]IANNA ROACHRatnaNEREYDA, [place] [phone] MEDICAL DIRECTORANNE OLGUIN M.D.Performed By: #### BIOFIRECOVNOTDE, RESP PANEL UPP. ####[address] [address] USABlood Cultureon 50-02-5700Gtnlvorg identified Cx Nom (Bld)NO GROWTH 5 DAYS PERFORMED BY: [facility] [address] [place] [address] PATHOLOGIST SPECIAL ASSEMBLIES SUPERVISOR SHANON PIERSON M.D.NormalThe [facility]S Hospital Physician GroupComment on above: Performed By: #### CUBLD, LACTIC, DIFF CBC ####[facility] [address] [place] [address] USABacteria identified Cx Nom (Bld)NO GROWTH 5 DAYS PERFORMED BY: [facility] [address] [place] [address] PATHOLOGIST SPECIAL ASSEMBLIES SUPERVISOR SHANON PIERSON M.D.NormalThe [facility] Hospital Physician GroupComment on above: Performed By: #### CUBLD, LACTIC, DIFF CBC ####[place] [address] [place] [address] USACOVID-19 Detected/Not DetectedOrdered By: Trish Christensen on 91-65-0263PCWP-CoV-2 (COVID-19) RNA KINZA+non-probe Ql (Nph) Not detectedNot DetecteFSCCI Hospital LimaComment on above:This is a duplicate RP2.1 COVID (PCR) result to be used for statistical tracking purpose only.Capillary blood glucose measurement by glucometer (mass/volume) Ordered By: Trish Christensen on 99-46-3436Smouoxd [Mass/Vol]122 mg/dLNormal [facility] St. Mary HospitalComment on above:Random Glucose Reference Range is dependent on time and content of last meal. Glucose of more than 200 mg/dL in a nonstressed, ambulatory subject supports the diagnosis of Diabetes Mellitus.Result Comment: Random Glucose Reference Range is dependent on time and content of last meal. Glucose of more than 200 mg/dL in a nonstressed, ambulatory subject supports the diagnosis of Diabetes Mellitus.PERFORMED BY:[facility] [place], [place] [phone] MEDICAL DIRECTORANNE OLGUIN M.D. Performed By: #### GLULS ####Point of Care testing,Cholesterol [Mass/volume] in Serum or PlasmaOrdered By: Trish Christensen on 17-97-3384Zswljxvlfbx [Mass/Vol]149 mg/cIPoaiay995-638MextlyutgMount St. Mary HospitalComment on above:Chol less than 200 mg/dl low riskChol 201-239 mg/dl borderline riskChol 240 mg/dl and greater high riskResult Comment: Chol less than 200 mg/dl low risk Chol 201-239 mg/dl borderline risk Chol 240 mg/dland greater high riskPerformed By: #### CMP, HS TROP, MG, TSH3, LIPID ####[facility] [address] [place] [address] USACholesterol in HDL [Mass/volume] in Serum or PlasmaOrdered By: Trish Christensen on 50-28-4391Upjxwuufwak in HDL [Mass/Vol]72 mg/xUJgzfbv22-[address] [facility] HospitalComment on above:HDL CHOL ATP-III CLASSIFICATION Cardiovascular RiskHDL > or equal to 60 mg/dL LOWHDL < 40 mg/dL HIGHResult Comment: HDL CHOL ATP-III CLASSIFICATION Cardiovascular Risk HDL > or equal to 60 mg/dL LOW HDL < 40 mg/dL HIGHPerformed By: #### CMP, HS TROP, MG, TSH3, LIPID ####[facility] [address] [place] [address] USACholesterol in LDL Calc [Mass/Vol]Ordered By: Trish Christensen on 45-40-1607Patxxjupvwo in LDL [Mass/Vol]60 mg/dL0-100[facility] St. Mary HospitalComment on above:LDL ATP III CLASSIFICATIONLDL less than 100 mg/dL OptimalLDL 100-129 mg/dL Near or above ykebppnKWQ131-811 mg/dL Borderline highLDL 160-189 mg/dL HighLDL greater than 189 mg/dL Very highCholesterol in VLDL Calc [Mass/Vol]Ordered By: Trish Christensen on 03-48-4269Einvukvbivl in VLDL [Mass/Vol]17 mg/dLMount St. Mary HospitalClostridioides difficile toxin B tcdB gene [Presence] in Stool by KINZA with probe deteOrdered By: Trish Christensen on 10-28-2024. difficile toxin B tcdB gene KINZA+probe Ql (Stl)Negative NegativeMount St. Mary HospitalComment on above:Testing performed by RT-PCRClostridium Difficileon 17-97-4141Cliqznormqu DifficileNegativeNormal NegativeThe [facility]S Hospital Physician GroupComment on above:Order Comment: > or = to 3 loose/watery stools in the last 24 HRS? Y Is patient on promotility agents or tube feeding? NResult Comment: Testing performed by RT-PCRPERFORMED BY:[address]ETRatnaTRUMANSBURG, [place] [phone] MEDICAL DIRECTORANNE OLGUIN M.D.Performed By: #### CDT ####[place] [id number] USAColor of Urine by AutoOrdered By: Trish Christensen on 58-61-3848Uizpk (U)Light-yellowNormalYellow [facility] St. Mary HospitalComment on above:Order Comment: Name Collection Type:: Monroe CatheterPerformed By: #### ADDONUAPLUS ####[place] [id number] USAComprehensive Metabolic Panel on 79-55-7515Dypzdij [Mass/Vol]3.9 g/dLNormal3.5-5.7The [facility] Hospital Physician GroupComment on above:Performed By: #### CMP, HS TROP, MG, TSH3, LIPID ####[place] [address] [place] Albumin/Globulin [Mass ratio]1.7 {ratio}NormalThe [facility] Physician Group Comment on above:Performed By: #### CMP, HS TROP, MG, TSH3, LIPID ####[place] [address] USAALP [Catalytic activity/Vol]135 U/DUzdb09-544Xvc [facility] Physician GroupComment on above: Performed By: #### CMP, HS TROP, MG, TSH3, LIPID ####[place] [id number] USAALT [Catalytic activity/Vol]13 U/L Normal7-52The [facility] Hospital Physician GroupComment on above:Performed By: #### CMP, HS TROP, MG, TSH3, LIPID ####[place] [id number] USAAnion gap [Moles/Vol]10.2 mmol/LNormal6.0-15.0The [facility] Hospital Physician GroupComment on above:Performed By: #### CMP, HS TROP, MG, TSH3, LIPID ####[place] [address] USAAST [Catalytic activity/Vol]21 U/QKlefgf11-14Ure [facility] Physician GroupComment on above:Performed By: #### CMP, HS TROP, MG, TSH3, LIPID ####[place] [address] [place] Bilirubin [Mass/Vol]0.6 mg/dLNormal0.3-1.0The [facility] Hospital Physician GroupComment on above:Performed By: #### CMP, HS TROP, MG, TSH3, LIPID ####[place] [address] USACalcium [Mass/Vol]10.9 mg/dL High8.6-10.3The [facility] Hospital Physician GroupComment on above:Performed By: #### CMP, HS TROP, MG, TSH3, LIPID ####[place] [address] USAChloride [Moles/Vol]119 mmol/ZXxky53-400Bke [facility] Physician GroupComment on above:Performed By: #### CMP, HS TROP, MG, TSH3, LIPID ####[place] [address] USACO2 [Moles/Vol]31.5 mmol/LHigh21.0-31.0The [facility] Comment on above:Performed By: #### CMP, HS TROP, MG, TSH3, LIPID ####[place] [address] USACreatinine [Mass/Vol] 1.50 mg/dLHigh0.60-1.20The [facility] Physician GroupComment on above:Performed By: #### CMP, HS TROP, MG, TSH3, LIPID ####[place] [address] USACreatinine Clr Calc Femkkvuv22.37NormalThe [facility] Hospital Physician GroupComment on above:Performed By: #### CMP, HS TROP, MG, TSH3, LIPID ####[address] [place] [address] USAEstimated GFR35.448 mL/MinNoUNC Health Chatham Physician GroupComment on above:Performed By: #### CMP, HS TROP, MG, TSH3, LIPID ####[place] [address] [place] [id number] USAGlobulin (S) [Mass/Vol]2.3 g/dLNoUNC Health Chatham Physician GroupComment on above:Performed By: #### CMP, HS TROP, MG, TSH3, LIPID ####[place] [address] USAGlucose [Mass/Vol]106 mg/tTWulo42-419Clc [facility] Physician GroupComment on above:Result Comment: Random Glucose Reference Range is dependent on time and content of last meal. Glucose of more than 200 mg/dL in a nonstressed, ambulatory subject supports the diagnosis of Diabetes Mellitus. ADA recommended reference rangePerformed By: #### CMP, HS TROP, MG, TSH3, LIPID ####[place] [id number] [place] Potassium [Moles/Vol]3.7 mmol/LNormal3.5-5.1The [facility] Hospital Physician GroupComment on above:Performed By: #### CMP, HS TROP, MG, TSH3, LIPID ####[place] [address] USAProtein [Mass/Vol]6.2 g/dLLow6.4-8.9The [facility] Physician GroupComment on above:Performed By: #### CMP, HS TROP, MG, TSH3, LIPID ####[place] [id number] USASodium [Moles/Vol]157 mmol/LOff scale uqza182-481Yzh [facility] Physician GroupComment on above:Result Comment: Results called at 1632 on 10/28/24 --- 10/28/24 2143 --- NA previously reported as:157 *H mmol/L Performed By: #### CMP, HS TROP, MG, TSH3, LIPID ####[place] [id number] USAUrea nitrogen [Mass/Vol]46 mg/dLHigh 7-25The [facility] Physician GroupComment on above:Performed By: #### CMP, HS TROP, MG, TSH3, LIPID ####[place] [address] USADiff and CBCon 27-72-6544Hncerwcbvuf distribution width (RBC) [Ratio]15.6 %High11.9-15.3The [facility] Physician GroupComment on above: Performed By: #### CUBLD, LACTIC, DIFF CBC ####[place] [address] USAGiant Platelet Tally2 /100{WBC}Normal The [facility] Hospital Physician GroupComment on above:Performed By: #### CUBLD, LACTIC, DIFF CBC ####[place] [address] USAHematocrit (Bld) [Volume fraction]40.6 %Cqewpk31.0-46.4The [facility] Physician GroupComment on above:Performed By: #### CUBLD, LACTIC, DIFF CBC ####[place] [address] [place] Hemoglobin (Bld) [Mass/Vol]13.2 g/zZJjbagf70.8-15.4The [facility] Comment on above:Performed By: #### CUBLD, LACTIC, DIFF CBC ####[place] [address] USALymphocytes/100 WBC (Bld)7 %Cjd06-98Fsi [facility] Physician GroupComment on above:Performed By: #### CUBLD, LACTIC, DIFF CBC ####[place] [address] USAMCH (RBC) [Entitic mass]31.2 ohGwacxh31.7-34.3The [facility] Physician GroupComment on above:Performed By: #### CUBLD, LACTIC, DIFF CBC ####[place] [address] USAMCV (RBC) [Entitic vol]95.8 oSNjhxyo93-172Rbp [facility] Physician GroupComment on above:Performed By: #### CUBLD, LACTIC, DIFF CBC ####[place] [id number] USAMean Corpuscular HGB Conc32.5 g/dL Ojnltd19.0-35.0[facility] Hospital At Stone CountyComment on above:Performed By: #### CUBLD, LACTIC, DIFF CBC ####[place] [address] USAMonocytes/100 WBC (Bld)10 %Normal2-11[facility] At Stone CountyComment on above:Performed By: #### CUBLD, LACTIC, DIFF CBC ####[place] [address] [facility] OvalocytesSlightNoUNC Health Chatham Physician [facility] General HospitalComment on above:Performed By: #### CUBLD, LACTIC, DIFF CBC ####[place] [address] USAPlatelet EstimateNormalNormalNormAdventHealth AvistaComment on above:Performed By: #### CUBLD, LACTIC, DIFF CBC ####[place] [id number] [place] Platelet mean volume (Bld) [Entitic vol]10.2 fLNormal6.3-10.7The [facility] Physician [facility] HospitalComment on above:Performed By: #### CUBLD, LACTIC, DIFF CBC ####[place] [id number] [facility] Platelet MorphologyNormalNormalNormPalm Springs General Hospital Physician [facility] General HospitalComment on above:Result Comment: PERFORMED BY:[address] [place], [place] [phone] MEDICAL TYESHA MEJIA M.D.Performed By: #### CUBLD, LACTIC, DIFF CBC ####[address] [address] USAPlatelets (Bld) [#/Vol]335 10*3/kFWqjezc357-340Ydp [facility] Physician [facility] HospitalComment on above:Performed By: #### CUBLD, LACTIC, DIFF CBC ####[address] [address] USARBC (Bld) [#/Vol]4.24 10*6/uLNormal3.60-5.00The [facility] Physician GroupComment on above:Performed By: #### CUBLD, LACTIC, DIFF CBC ####[address] [address] USA SchistocytesSlightNormPalm Springs General Hospital Physician GroupComment on above:Performed By: #### CUBLD, LACTIC, DIFF CBC ####[address] [address] USASegmented neutrophils/100 WBC (Bld)81 %Odzd50-66Ahw [facility] Physician GroupComment on above:Performed By: #### CUBLD, LACTIC, DIFF CBC ####[address] [address] [place] WBC (Bld) [#/Vol]16.8 10*3/uLHigh3.8-11.6The [facility] Physician GroupComment on above:Performed By: #### CUBLD, LACTIC, DIFF CBC ####[address] [address] USADipstick and Microscopicon 10-28-2024 Bacteria,UrineRareNormalNone SeenThe [facility]S Hospital Physician GroupComment on above: Order Comment: Name Collection Type:: Monroe CatheterPerformed By: #### ADDONUAPLUS ####[address] [address] USABilirubin,UrineNegativeNormalNegativeThe [facility] Comment on above:Order Comment: Name Collection Type:: Monroe CatheterPerformed By: #### ADDONUAPLUS ####[address] [address] USAGlucose Ql (U)NormalNormalNormPalm Springs General Hospital Physician GroupComment on above:Order Comment: Name Collection Type:: Monroe CatheterPerformed By: #### ADDONUAPLUS ####[place] [id number] USAHyaline Casts,UrineNoneNormal0-8The [facility] Physician GroupComment on above:Order Comment: Name Collection Type:: Monroe CatheterPerformed By: #### ADDONUAPLUS ####[address] [address] USAMucus,UrineRareNormalThe [facility] Physician GroupComment on above:Order Comment: Name Collection Type:: Monroe CatheterResult Comment: PERFORMED BY:[place] [address] [place], [place] [phone] MEDICAL DIRECTORANNE ONTIVEROSROBERTO Stacy Performed By: #### ADDONUAPLUS ####[address] [address] USANitrite,UrineNegativeNormalNegativeThe [facility] Physician GroupComment on above:Order Comment: Name Collection Type:: Monroe CatheterPerformed By: #### ADDONUAPLUS ####[address] [address] USAOccult Blood,Urine1+HighNegativeThe [facility] Physician GroupComment on above:Order Comment: Name Collection Type:: Monroe CatheterResult Comment: PERFORMED BY:[place] [address] [place], [place] [phone] MEDICAL DIRECTORANNE ONTIVEROS ROBERTO StacyPerformed By: #### ADDONUAPLUS ####[address] [address] USAProtein,UrineTraceHighNegativeBaptist Health Hospital Doral Physician GroupComment on above:Order Comment: Name Collection Type:: Monroe CatheterPerformed By: #### ADDONUAPLUS ####[address] [address] USARBC,Zdjqv9-8Rtak0-2Vhp [facility] Physician GroupComment on above:Order Comment: Name Collection Type:: Monroe CatheterPerformed By: #### ADDONUAPLUS ####[address] [address] USASpecificy [place],Urine1.025Epbs6.001-1.030[facility] Physician GroupComment on above:Order Comment: Name Collection Type:: Monroe CatheterPerformed By: #### ADDONUAPLUS ####[facility] [place] [address] USASquamous Epithelial Cell,Urine1-2 Normal0-2The [facility] Physician GroupComment on above:Order Comment: Name Collection Type:: Monroe CatheterPerformed By: #### ADDONUAPLUS ####[address] [address] USAUrobilinogen,Urine NormalNormalNoUNC Health Chatham Physician GroupComment on above:Order Comment: Name Collection Type:: Monroe CatheterPerformed By: #### ADDONUAPLUS ####[address] [address] [place] WBC,Hmtlr74-02Cbih3-5Ocq [facility] Physician GroupComment on above:Order Comment: Name Collection Type:: Monroe CatheterPerformed By: #### ADDONUAPLUS ####[address] [address] USAECG 12 lead ECGon 06-36-7000ZYO 12 lead ECGNoUNC Health Chatham Physician GroupECG 12 lead ECGNoUNC Health Chatham Physician GroupECG 12 lead ECGHCA Florida Pasad[facility] Hospital Physician GroupEpithelial cells.squamous [#/area] in Urine sediment by Automated countOrdered By: Trish Christensen on 72-64-4018Gtjymjmpvt cells.squamous Auto (Urine sed) [#/Area]1-2 [HPF]0-2FSCCI Hospital LimaErythrocytes [#/area] in Urine sediment by Automated countOrdered By: Trish Christensen on 98-40-2220SZE Auto (Urine sed) [#/Area]5-9 [HPF]High0-4FSCCI Hospital LimaGlucose [Mass/volume] in Urine by Test stripOrdered By: Trish Christensen on 97-61-4583Xwdplnw Test strip (U) [Mass/Vol]Normal mg/dLNoal [facility] Mary HospitalHemoglobin Test strip Ql (U)Ordered By: Trish Christensen on 93-39-8836Crcthovmhy Ql (U)1+HighNegativeMount St. Mary HospitalHyaline casts [#/area] in Urine sediment by Automated countOrdered By: Trish Christensen on 60-60-7330Nkvnlrc casts Auto (Urine sed) [#/Area]None [LPF]0-[address] [facility] HospitalKetones [Presence] in Urine by Test strip Ordered By: Trish Christensen on 93-94-1964Kadvkhk Ql (U)NegativeNormalNegative [facility] Mary HospitalComment on above:Order Comment: Name Collection Type:: Monroe CatheterPerformed By: #### ADDONUAPLUS ####[address] [address] USALaboratory - Microbiology and Antimicrobial susceptibilityOrdered By: Trish Reeves on 15-36-8014Uvwatltx identified Cx Nom (Bld)NO GROWTH [address] Mary HospitalBacteria identified Cx Nom (Bld)NO GROWTH [address] Mary HospitalLactate [Moles/volume] in Serum or PlasmaOrdered By: Trish Johniesandra on 33-63-8944Kzplyoc [Moles/Vol]1.6 mmol/LNormal0.5-1.9[facility] HospitalComascension st. john hospital on above:Lactic Acid reference range has been updated to 0.5 1.9 mmol/L and the critical range of 2.0 or greater.Result Comment: Lactic Acid reference range has been updated to 0.5 ? 1.9 mmol/L and the critical range of 2.0 or greater.PERFORMED BY:[address] [place], [place] [phone] MEDICAL DIRECTORANNE OLGUIN M.D. Performed By: #### CUBLD, LACTIC, DIFF CBC ####[facility] [address] [place] [address] USALeukocyte esterase [Presence] in Urine by Test stripOrdered By: Trish Reeves on 12-25-1430Aaymqzxoo esterase Test strip Ql (U)NegativeNormalNegativeFirelands Regional Medical CenterComment on above:Order Comment: Name Collection Type:: Monroe CatheterPerformed By: #### ADDONUAPLUS ####[address] [address] USALeukocytes [#/area] in Urine sediment by Automated countOrdered By: Trish Christensen on 26-09-2193BAE Auto (Urine sed) [#/Area]10-19 [HPF]High0-[address] [facility] HospitalLipid Panelon 29-46-7823FGS Cholesterol,Qbdidkcsql26 mg/dLNormal0-100The [facility] Physician GroupComment on above:Result Comment: LDL ATP III CLASSIFICATION LDL less than 100 mg/dL Optimal LDL 100-129 mg/dL Near or above optimal LDL 130-159 mg/dL Borderline high LDL 160-189 mg/dL High LDL greater than 189 mg/dL Very highPerformed By: #### CMP, HS TROP, MG, TSH3, LIPID ####[place] [address] [place] [address] USATriglyceride w/Qrhlss74 mg/dLNormal0-149The [facility] Physician GroupComment on above:Result Comment: TRIG ATP III CLASSIFICATION TRIG less than 150 mg/dL Normal TRIG 150-199 mg/dL Borderline high TRIG 200-500 mg/dL High TRIG greater than 500 mg/dL Very high Standard traceable to the Center for Disease Conrtrol and Prevention (CDC) test method. Performed By: #### CMP, HS TROP, MG, TSH3, LIPID ####[place] [address] [place] [address] USAVLDL QPCICPEPGOH09 mg/dLNormalThe [facility] Physician GroupComment on above:Performed By: #### CMP, HS TROP, MG, TSH3, LIPID ####[address] [address] USAMagnesium [Mass/volume] in Serum or PlasmaOrdered By: Trish Christensen on 38-72-0617Ogoltjzew [Mass/Vol]2.8 mg/dLHigh1.9-2.7FSCCI Hospital LimaComment on above:Performed By: #### CMP, HS TROP, MG, TSH3, LIPID ####[address] [place] [address] USAMucus [Presence] in Urine by AutomatedOrdered By: Trish Christensen on 86-38-8639Phmfh Auto Ql (U)Rare [LPF][facility] Mary HospitalNitrite Test strip Ql (U) Ordered By: Trish Christensen on 75-71-6899Ehgzfuj Ql (U)NegativeNegativeMount St. Mary HospitalProtein Test strip (U) [Mass/Vol]Ordered By: Trish Christensen on 78-59-3232Hqsmtdy (U) [Mass/Vol]Trace mg/dLHighNegativeMount St. Mary HospitalRespiratory (Upper) Panel, PCRon 81-32-3973Vxwhlepuhje (Upper) Panel, PCRNormalThe [facility] Physician GroupComment on above:Performed By: #### BIOFIRECOVNOTDE, RESP PANEL UPP. ####[address] [address] USARespiratory pathogens DNA and RNA panel - Nasopharynx by KINZA with non-probe detectionOrdered By: Trish Christensen on 95-65-0097Ggoigwfiiqx pathogens DNA and RNA panel KINZA+non-probe (Nph)[facility]ami Valley Hospitalerum or plasma total cholesterol/high density lipoprotein (HDL) cholesterol mass ratOrdered By: Trish Christensen on 10-28-2024 Cholesterol.total/Cholesterol in HDL [Mass ratio]2.1 {ratio}Normal<5.0[facility] Mary HospitalComment on above:Performed By: #### CMP, HS TROP, MG, TSH3, LIPID ####[address] [address] USASpecific gravity Test strip (U) [Rel density]Ordered By: Trish Reeves on 29-90-4490Ihgdrozr gravity (U) [Rel density]1.987Pexo2.001-1.030[facility] HospitalThyroid Stimulating Hormoneon 82-45-5409AZA Qn0.87 m[IU]/LNormal0.45-5.33The [facility] Physician GroupComment on above:Result Comment: PERFORMED BY:[address] [place], [place] [phone] MEDICAL DIRECTORANNE OLGUIN M.D. Performed By: #### CMP, HS TROP, MG, TSH3, LIPID ####[address] [address] USATriglyceride [Mass/volume] in Serum or PlasmaOrdered By: Trish Christensen on 17-10-4611Xnjnroswwyam [Mass/Vol]85 mg/dL 0-149[facility] Mary HospitalComment on above:TRIG ATP III CLASSIFICATIONTRIG less than 150 mg/dL NormalTRIG 150-199 mg/dL Borderline highTRIG 200-500 mg/dL High TRIG greater than 500 mg/dL Very highStandard traceable to the Center for Disease Conrtrol and Prevention (CDC) test method. Troponin I High Sensitivityon 62-22-2106Coxxvtkh I High Fbcklgnswtl21Ogf scale high0-15The [facility] Physician GroupComment on above:Result Comment: Critical Result : Called to and read back by: KOSTAS GARCIA at: 10/28/2024 22:34:32by: The Troponin units of report have been changed to meet the Chest Pain Accreditation requirement, element EC5.M1l2. Troponin units are changed from pg/ml to ng/L. Also, the decimal is removed and results are in whole numbers.PERFORMED BY:[address] [place], [place] [phone] MEDICAL DIRECTORANNE OLGUIN M.D. Performed By: #### HS TROP ####[address] [address] USATroponin I High Btxbjolexgg30Ljc scale high0-15The [facility] Physician GroupComment on above:Result Comment: Critical Result : Called to and read back by: CALVIN EASTON at: 10/28/2024 16:56:36 by:DERICK The Troponin units of report have been changed to meet the Chest Pain Accreditation requirement, element EC5.M1l2. Troponin units are changed from pg/ml to ng/L. Also, the decimal is removedand results are in whole numbers.PERFORMED BY:[address] [place], [place] [phone] MEDICAL DIRECTORANNE OLGUIN M.D. Performed By: #### CMP, HS TROP, MG, TSH3, LIPID ####[place] [address] [place] [address] USAUrobilinogen Test strip (U) [Mass/Vol] Ordered By: Trish Christensen on 70-56-7071Pqvlwsovxwjl (U) [Mass/Vol]Normal mg/dL NormalMount St. Mary HospitalXR abdomen 1Von 81-63-5628LW abdomen 1V NormalBaptist Health Hospital Doral Physician [facility] General HospitalXR chest 1V portableon 83-13-9281MT chest 1V portableNoUNC Health Chatham Physician [facility] General HospitalpH of Urine by Test stripOrdered By: Trish Christensen on 69-32-4097jK (U)6.0 [pH]Normal5.0-9.0[facility] Mary HospitalComment on above:Order Comment: Name Collection Type:: Monroe Catheter Performed By: #### ADDONUAPLUS ####[place] [address] [place] [address] USAUrine Cultureon 39-47-9166Inwwcmgp identified Cx Nom (U)No Growth 2 Days PERFORMED BY: [facility] [address] [place] [address] PATHOLOGIST SPECIAL ASSEMBLIES SUPERVISOR ANNE OLGUIN M.D.[facility] Physician [facility] General HospitalComment on above: Performed By: #### CUU ####[address] [address] USAUrine cultureOrdered By: Kavon Sams on 10-23-2024 Bacteria identified Cx Nom (U)No Growth [address] [facility] Pelvis 1 or 2 Viewson 09-72-8804Wluabce Result: Examination of the x-ray AP pelvis done here today single view with permanent images are saved to the record does show the superior pubic rami fracture. There is some slight displacement noted. Some comminution noted. The bone is osteopenic, likely osteoporotic. No evidence of further fracture or other osseous abnormality.NOMS [facility]XR W[facility] - right 3 Viewson 30-87-6361Uzysece Result: X-ray of the right wrist AP, lateral and oblique total of three views with permanent images are saved to the record does show the evidence of the distal radius fracture. It does appear to be fixated accordingly. No evidence of displacement or further finding of significance. No change in the hardware is noted.[facility] CenterNo Panel Informationon 00-55-2259Ariuiolxb Study observation (narrative)[facility]Bat[facility] Metabolic Panelon 18-82-6972Vksme gap [Moles/Vol]12.1 mmol/LNormal6.0-15.0The [facility] Physician GroupComment on above:Performed By: #### BMP ####[address] [address] USACalcium [Mass/Vol]10.9 mg/dL High8.6-10.3The [facility] Physician GroupComment on above:Performed By: #### BMP ####[address] [address] [place] Chloride [Moles/Vol]108 mmol/PBnxs50-514Ort [facility] Physician [facility] HospitalComment on above:Performed By: #### BMP ####[address] [address] USACO2 [Moles/Vol]24.7 mmol/IYjskbb99.0-31.0The [facility] Physician GroupComment on above:Performed By: #### BMP ####[address] [address] USACreatinine [Mass/Vol] 1.22 mg/dLHigh0.60-1.20The [facility] Physician GroupComment on above:Performed By: #### BMP ####[address] [address] USACreatinine Clr Calc Gtitudoc61.68NormPalm Springs General Hospital Physician Group Comment on above:Result Comment: PERFORMED BY:[address]ETDIANNA CORTEZNEREYDA, [place] [phone] MEDICAL DIRECTORANNE OLGUIN M.D.Performed By: #### BMP ####[address] [address] USAEstimated GFR45.423 mL/Min NormalThe [facility] Hospital Physician GroupComment on above:Performed By: #### BMP ####[address] [place] [address] USAGlucose [Mass/Vol]80 mg/yOWqlfxj93-130Cmg [facility] Physician GroupComment on above: Result Comment: Random Glucose Reference Range is dependent on time and content of last meal. Glucose of more than 200 mg/dL in a nonstressed, ambulatory subject supports the diagnosis of Diabetes Mellitus. ADA recommended reference rangePerformed By: #### BMP ####[address] [place] [address] USAPotassium [Moles/Vol]4.8 mmol/LNormal3.5-5.1The [facility] Physician GroupComment on above:Performed By: #### BMP ####[address] [address] USASodium [Moles/Vol]140 mmol/CJayflr926-128Fik [facility] Physician GroupComment on above:Performed By: #### BMP ####[address] [place] [address] USAUrea nitrogen [Mass/Vol]34 mg/dLHigh7-25The [facility] Physician GroupComment on above:Performed By: #### BMP ####[address] [address] USACalcium [Mass/volume] in Serum or PlasmaOrdered By: Baylee Ho on 10-65-2012Yexgpsr [Mass/Vol]Calcium [Mass/volume] in Serum or PlasmaHigh8.6-10.3FSCCI Hospital LimaCarbon dioxide, total [Moles/volume] in Serum or PlasmaOrdered By: Baylee Ho on 46-22-9779ZY5 [Moles/Vol]Carbon dioxide, total [Moles/volume] in Serum or Plasma 21.0-31.0[facility] HospitalChloride [Moles/volume] in Serum or PlasmaOrdered By: Baylee Ho on 85-69-1660Sprlvkbl [Moles/Vol]Chloride [Moles/volume] in Serum or XhmyajHulv94-457FhzhrjzgbMount St. Mary Hospital Creatinine [Mass/volume] in Serum or PlasmaOrdered By: Baylee Ho on 55-25-2598Hqimhupoxb [Mass/Vol]Creatinine [Mass/volume] in Serum or PlasmaHigh 0.60-1.20[facility] HospitalGlucose [Mass/volume] in Serum or PlasmaOrdered By: Baylee Ho on 11-55-3810Kedjfsu [Mass/Vol]Glucose [Mass/volume] in Serum or Lnuayf07-006EsjeqklnsMount St. Mary HospitalComment on above:ADA recommended reference rangeRandom Glucose Reference Range is dependent on time and content of last meal. Glucose of more than 200 mg/dL in a nonstressed, ambulatory subject supports the diagnosisof Diabetes Mellitus.No Panel InformationOrdered By: Baylee Ho on 07-81-1642Ptkmesbwa GFR (CKD-EPI)45.423 mL/MinMount St. Mary HospitalPharmacy Creatinine Clearance (Chem28.68Mount St. Mary HospitalPotassium [Moles/volume] in Serum or PlasmaOrdered By: Baylee oH on 22-84-0455Aqdzeqqvz [Moles/Vol]Potassium [Moles/volume] in Serum or Plasma3.5-5.1FOhioHealth Arthur G.H. Bing, MD, Cancer Centererum or plasma anion gap determinationOrdered By: Baylee Ho on 76-67-4616Jajst gap [Moles/Vol]Serum or plasma anion gap determination6.0-15.0[facility] Valley Hospitalodium [Moles/volume] in Serum or PlasmaOrdered By: Baylee Ho on 35-84-7469Bihckk [Moles/Vol] Sodium [Moles/volume] in Serum or Feixok620-842HdhbdfddxMount St. Mary Hospital Urea nitrogen [Mass/volume] in Serum or PlasmaOrdered By: Baylee Ho on 57-31-9163Rtuv nitrogen [Mass/Vol]Urea nitrogen [Mass/volume] in Serum or PlasmaHigh7-25Mount St. Mary HospitalBasic Metabolic Panelon 95-46-9563Ofddf gap [Moles/Vol]9.7 mmol/LNormal6.0-15.0[facility] Physician [facility] HospitalComment on above:Performed By: #### SCAN CBC, BMP ####[address] [place] [address] USACalcium [Mass/Vol]11.1 mg/dL High8.6-10.3The [facility] Physician [facility] HospitalComment on above:Performed By: #### SCAN CBC, BMP ####[address] [place] [address] USAChloride [Moles/Vol]105 mmol/EUwueyt53-408Kij [facility] Physician [facility] Comment on above:Performed By: #### SCAN CBC, BMP ####[address] [place] [address] USACO2 [Moles/Vol]25.9 mmol/LNormal 21.0-31.0The [facility] Physician GroupComment on above:Performed By: #### SCAN CBC, BMP ####[address] [address] USACreatinine [Mass/Vol]1.29 mg/dLHigh0.60-1.20The [facility] Comment on above:Performed By: #### SCAN CBC, BMP ####[address] [address] USACreatinine Clr Calc Laleagll08.12 NormalThe [facility] Physician [facility] HospitalComment on above:Result Comment: PERFORMED BY:[address] KEELYGerardoRatnaNEREYDA, [place] [phone] MEDICAL DIRECTORANNE OLGUIN M.D.Performed By: #### SCAN CBC, BMP ####[address] [address] USAEstimated GFR42.482 mL/MinNormalThe [facility] Physician [facility] HospitalComment on above:Performed By: #### SCAN CBC, BMP ####[address] [place] [address] USAGlucose [Mass/Vol]86 mg/lGUpbtsv08-724Vym [facility] Physician GroupComment on above:Result Comment: Random Glucose Reference Range is dependent on time and content of last meal. Glucose of more than 200 mg/dL in a nonstressed, ambulatory subject supports the diagnosis of Diabetes Mellitus. ADA recommended reference rangePerformed By: #### SCAN CBC, BMP ####[facility] [address] Potassium [Moles/Vol]4.6 mmol/LNormal3.5-5.1The [facility] Physician [facility] HospitalComment on above:Performed By: #### SCAN CBC, BMP ####[facility] [address] [place] [address] USASodium [Moles/Vol]136 mmol/L Significant change zgmo348-891Kbg [facility] Physician [facility] HospitalComment on above: Performed By: #### SCAN CBC, BMP ####[facility] R[address]642 [place] [address] USAUrea nitrogen [Mass/Vol]31 mg/dLHigh7-25The [facility] Physician GroupComment on above:Performed By: #### SCAN CBC, BMP ####[facility] Jhq[address] Basophils Auto (Bld) [#/Vol]Ordered By: Baylee Ho on 09-02-2024 Basophils (Bld) [#/Vol]Automated basophil count0.0-0.2FSCCI Hospital LimaBasophils/100 WBC Auto (Bld)Ordered By: Baylee Ho on 30-18-6576Bniowahbt/100 WBC (Bld)Automated basophil %.[facility] Mary HospitalBurr cells [Presence] in Blood by Light microscopyOrdered By: Baylee Ho on 75-30-6440Ypxd cells LM Ql (Bld)[place] cells [Presence] in Blood by Light microscopyMount St. Mary HospitalEosinophils Auto (Bld) [#/Vol]Ordered By: Baylee Ho on 82-33-6647Uncpncezzcg (Bld) [#/Vol] Automated eosinophil count0.0-0.45[facility] Eosinophils/100 WBC Auto (Bld)Ordered By: Baylee Ho on 09-02-2024 Eosinophils/100 WBC (Bld)Automated eosinophil %.[facility] HospitalErythrocyte distribution width Auto (RBC) [Ratio]Ordered By: Baylee Ho on 75-91-8205Pkflrjkytha distribution width (RBC) [Ratio] Erythrocyte distribution width [Ratio] by Automated count11.9-15.3FSCCI Hospital LimaErythrocyte morphology finding [Identifier] in Blood Ordered By: Baylee Ho on 45-76-0509NCQ morphology finding Nom (Bld) RBC morphologyMount St. Mary HospitalHematocrit Auto (Bld) [Volume fraction]Ordered By: Baylee Ho on 08-96-8608Adfmnxvgsi (Bld) [Volume fraction]Hematocrit [Volume Fraction] of Blood by Automated count34.0-46.[address] [facility] HospitalHemoglobin [Mass/volume] in BloodOrdered By: Baylee Ho on 99-33-9675Agezhfdlqm (Bld) [Mass/Vol]Hemoglobin [Mass/volume] in Blood11.8-15.4FSCCI Hospital LimaLeukocytes [#/volume] corrected for nucleated erythrocytes in Blood by Automated coun Ordered By: Baylee Ho on 43-10-8182OQW corrected for nucl RBC Auto (Bld) [#/Vol]Leukocytes [#/volume] corrected for nucleated erythrocytes in Blood by Automated coun3.8-11.6FSCCI Hospital LimaLymphocytes Auto (Bld) [#/Vol]Ordered By: Baylee Ho on 08-20-7551Zluwdcprgbm (Bld) [#/Vol]Lymphocytes [#/volume] in Blood by Automated count1.00-4.8[facility] HospitalLymphocytes/100 WBC Auto (Bld)Ordered By: Baylee Ho on 40-05-3494Bflqwrpcran/100 WBC (Bld)Lymphocytes/100 leukocytes in Blood by Automated count.[facility] Mary HospitalMCH Auto (RBC) [Entitic mass]Ordered By: Baylee Ho on 15-75-4264YLP (RBC) [Entitic mass]MCH [Entitic mass] by Automated count24.7-34.3FSCCI Hospital LimaMCHC Auto (RBC) [Mass/Vol]Ordered By: Baylee Ho on 09-02-2024 MCHC (RBC) [Mass/Vol]MCHC [Mass/volume] by Automated count32.0-35.0[facility] HospitalMCV Auto (RBC) [Entitic vol]Ordered By: Baylee Witt on 33-26-0547PHR (RBC) [Entitic vol]MCV [Entitic volume] by Automated count 80-100Mount [facility] HospitalMonocytes Auto (Bld) [#/Vol]Ordered By: Baylee Ho on 88-67-4599Rihzyqwyp (Bld) [#/Vol]Automated blood monocyte countHigh0.0-0.8[facility] HospitalMonocytes/100 WBC Auto (Bld)Ordered By: Baylee Ho on 79-48-6328Pcfdiuxwl/100 WBC (Bld) Automated monocyte %.[facility] HospitalNeutrophils Auto (Bld) [#/Vol]Ordered By: Baylee Ho on 32-39-0017Cfmmwahczkb (Bld) [#/Vol] Neutrophils [#/volume] in Blood by Automated count1.8-7.7FSCCI Hospital LimaNeutrophils/100 WBC Auto (Bld)Ordered By: Baylee Ho on 77-51-3004Uzqykjlbpfk/100 WBC (Bld)Automated neutrophil %.[facility] HospitalNucleated erythrocytes [Presence] in Blood by Automated count Ordered By: Baylee Ho on 61-33-2294Eoqtsxtge RBC Auto Ql (Bld) Nucleated erythrocytes [Presence] in Blood by Automated count0-0.5FSCCI Hospital LimaOvalocytes [Presence] in Blood by Light microscopyOrdered By: Baylee Ho on 36-68-6528Ymizwazdrz LM Ql (Bld)Ovalocyte detection [facility] HospitalPlatelet adequacy [Presence] in Blood by Light microscopyOrdered By: Baylee Ho on 63-43-1041Ppfngczfc LM Ql (Bld) Platelet adequacy [Presence] in Blood by Light microscopyNormalMount St. Mary HospitalPlatelet mean volume Auto (Bld) [Entitic vol]Ordered By: Baylee Ho on 42-09-9619Xcxjwbfw mean volume (Bld) [Entitic vol] Platelet mean volume [Entitic volume] in Blood by Automated countHigh6.3-10.[address] [facility] HospitalPlatelet morphology finding [Identifier] in BloodOrdered By: Baylee Ho on 23-09-1971Gwcqsnhv morphology finding Nom (Bld)Platelet morphology finding [Identifier] in BloodMount St. Mary HospitalPlatelets Auto (Bld) [#/Vol]Ordered By: Baylee Ho on 27-29-2539Imtcinluf (Bld) [#/Vol]Platelets [#/volume] in Blood by Automated countSignificant change mxvf491-407LwmroygukMount St. Mary HospitalComment on above:Delta: 254 on 08/31/24-1056Platelets Large [Presence] in Blood by Light microscopyOrdered By: Baylee Ho on 17-00-8874Cuaasbkfy Large LM Ql (Bld)Platelets Large [Presence] in Blood by Light microscopyMount St. Mary HospitalPoikilocytosis [Presence] in Blood by Light microscopyOrdered By: Baylee Ho on 42-24-1187Pksstxcwtjsijr LM Ql (Bld)Poikilocytosis [Presence] in Blood by Light microscopyMount St. Mary HospitalRBC Auto (Bld) [#/Vol]Ordered By: Baylee Ho on 23-88-1104DLO (Bld) [#/Vol] Erythrocytes [#/volume] in Blood by Automated count3.60-5.00Miami Valley Hospitalcan and CBCon 08-00-8565Iysrenymp (Bld) [#/Vol]0.1 10*3/uLNormal 0.0-0.2The [facility] Physician GroupComment on above:Result Comment: PERFORMED BY:[facility] [place], [place] [phone] MEDICAL DIRECTORANNE OLGUIN M.D.Performed By: #### SCAN CBC, BMP ####[facility] [place] [address] USABasophils/100 WBC (Bld)0.7 %Normal.The [facility] Physician GroupComment on above:Performed By: #### SCAN CBC, BMP ####[address] [address] USACrenated RBCSSelect Specialty Hospital - Greensboro Physician GroupComment on above:Performed By: #### SCAN CBC, BMP ####[id number] USAEosinophils (Bld) [#/Vol]0.1 10*3/uLNormal0.0-0.45The [facility] Physician GroupComment on above: Performed By: #### SCAN CBC, BMP ####[id number] USAEosinophils/100 WBC (Bld)1.1 %Normal.The [facility] Physician GroupComment on above:Performed By: #### SCAN CBC, BMP ####[id number] USAErythrocyte distribution width (RBC) [Ratio]15.0 %Wocycn07.9-15.3The [facility] Physician GroupComment on above:Performed By: #### SCAN CBC, BMP ####[id number] USAHematocrit (Bld) [Volume fraction]37.2 %Okjnce86.0-46.4The [facility] Physician GroupComment on above: Performed By: #### SCAN CBC, BMP ####[id number] USAHemoglobin (Bld) [Mass/Vol]12.6 g/qFQpygom09.8-15.4 The [facility] Physician GroupComment on above:Performed By: #### SCAN CBC, BMP ####[address] [address] USALarge PlateletsSlightHCA Florida Pasadena Hospital Physician GroupComment on above:Result Comment: PERFORMED BY:[address] [place]AN[place]USKORANGE [place], [place] [phone] MEDICAL TYESHA OLGUIN M.D. Performed By: #### SCAN CBC, BMP ####[place] [address] USALymphocytes (Bld) [#/Vol]1.4 10*3/uLNormal1.00-4.8 The [facility] Physician GroupComment on above:Performed By: #### SCAN CBC, BMP ####[id number] [place] Lymphocytes/100 WBC (Bld)15.8 %Normal.The [facility] Physician GroupComment on above:Performed By: #### SCAN CBC, BMP ####[id number] [facility] (RBC) [Entitic mass]31.8 nvZwhjlw98.7-34.3 The [facility] Physician GroupComment on above:Performed By: #### SCAN CBC, BMP ####[id number] [facility] (RBC) [Entitic vol]94.1 gVEdeduy32-106Vlq [facility] Physician GroupComment on above:Performed By: #### SCAN CBC, BMP ####[id number] USAMean Corpuscular HGB Conc33.8 g/dLNormal 32.0-35.0The [facility] Physician GroupComment on above:Performed By: #### SCAN CBC, BMP ####[id number] USAMonocytes (Bld) [#/Vol]1.5 10*3/uLHigh0.0-0.8The [facility]ician Group Comment on above:Performed By: #### SCAN CBC, BMP ####[id number] USAMonocytes/100 WBC (Bld)17.1 %Normal. The [facility] Physician GroupComment on above:Performed By: #### SCAN CBC, BMP ####[place] [address] [place] Neutrophils (Bld) [#/Vol]5.7 10*3/uLNormal1.8-7.7The [facility] Group Comment on above:Performed By: #### SCAN CBC, BMP ####[place] [address] USANeutrophils/100 WBC (Bld)65.3 %Normal .The [facility] Physician [facility] HospitalComment on above:Performed By: #### SCAN CBC, BMP ####[place] [address] USANRBC% 0.2 /100{WBC}Normal0-0.5The [facility] Physician GroupComment on above:Performed By: #### SCAN CBC, BMP ####[phone] USAOvalocytesSaudubon county memorial hospital and clinicsNoUNC Health [facility] Physician [facility] Comment on above:Performed By: #### SCAN CBC, BMP ####[place] [address] USAPlatelet EstimateNormalNormalNormal [facility] Physician GroupComment on above:Performed By: #### SCAN CBC, BMP ####[phone] [place] Platelet mean volume (Bld) [Entitic vol]11.2 fLHigh6.3-10.7The [facility] Physician GroupComment on above:Performed By: #### SCAN CBC, BMP ####[place] [address] USAPlatelets (Bld) [#/Vol]194 10*3/uLSignificant change pstx604-662Gaw [facility] Physician [facility] Comment on above:Performed By: #### SCAN CBC, BMP ####[id number] USAPoikilocytosisSlightNormPalm Springs General Hospital Physician [facility] HospitalComment on above:Performed By: #### SCAN CBC, BMP ####[place] [address] USARBC (Bld) [#/Vol]3.95 10*6/uLNormal3.60-5.00The [facility] Physician GroupComment on above:Performed By: #### SCAN CBC, BMP ####[facility] [id number] USATarget CellsSlightNormalThBingham Memorial Hospital Physician GroupComment on above:Performed By: #### SCAN CBC, BMP ####[address] [place] [address] USAWBC (Bld) [#/Vol]8.7 10*3/uLNormal3.8-11.6The [facility] Physician GroupComment on above:Performed By: #### SCAN CBC, BMP ####[address] [place] [address] USATarget cells [Presence] in Blood by Light microscopyOrdered By: Baylee Ho on 20-93-2270Fgnglk cells LM Ql (Bld)Target [facility] HospitalWBC Auto (Bld) [#/Vol]Ordered By: Baylee Ho on 93-49-3490YIO (Bld) [#/Vol]Leukocytes [#/volume] in Blood by Automated count 3.8-11.6FSCCI Hospital LimaX-ray reportOrdered By: Ramsey Guerrero on 50-48-5938Hzckd [facility] [place] [address] [place] [address] XRay Report Signed Patient: Judith Land MR#: [id number] : 1945 Acct:[id number] Age/Sex: 79 / F ADM Date: 5 Loc: Room: [address] [place] [address] Type: ADM IN Attending Dr: Pa Neil [...] RAMUS.. Impression dictated by: Ramsey Guerrero Jr., DJamil09/02/2024 5:54 PM Dictation Location: [facility] Transcribed By: [facility] 09/02/241753 Dictated By: Ramsey Guerrero Jr, DO 09/02/241753 Signed By: 09/02/241753 [facility] HospitalXR hip LT min 2V(w/wo pelvis)*on 51-24-1980XV hip LT min 2V(w/wo pelvis)*NormalThe [facility] Physician [facility] HospitalCT head/brain wo conon 08-50-0544UI head/brain wo conNormalThe [facility] Acanthocytes [Presence] in Blood by Light microscopyOrdered By: Pa Neil on 03-16-2177Jtwxyqchzizj LM Ql (Bld)Acanthocytes [Presence] in Blood by Light microscopyMount St. Mary HospitalAnisocytosis LM Ql (Bld) Ordered By: Pa Neil on 41-03-7896Umkwftyayvto Ql (Bld)Anisocytosis [Presence] in Blood by Light microscopyMount St. Mary HospitalBasic Metabolic Panelon 79-68-1713Bdiiz gap [Moles/Vol]13.0 mmol/LNormal6.0-15.0The [facility] GroupComment on above:Performed By: #### BMP, SCAN CBC ####[facility] [address] [place] [address] USACalcium [Mass/Vol]11.6 mg/dLHigh8.6-10.3The [facility] Physician GroupComment on above: Performed By: #### BMP, SCAN CBC ####[facility] [address] [place] [address] USAChloride [Moles/Vol]112 mmol/CHzps76-552Qwj [facility] Physician GroupComment on above:Performed By: #### BMP, SCAN CBC ####[facility] [place] [address] USACO2 [Moles/Vol]23.9 mmol/OIgnzmv56.0-31.0The [facility] Physician GroupComment on above:Performed By: #### BMP, SCAN CBC ####[address] [place] [address] USACreatinine [Mass/Vol]1.34 mg/dLHigh0.60-1.20 The [facility] Physician GroupComment on above:Performed By: #### BMP, SCAN CBC ####[address] [address] [place] Creatinine Clr Calc Dkqkeemy62.11NoUNC Health Chatham Physician [facility] HospitalComment on above:Result Comment: PERFORMED BY:[address] KEELYGerardoRatnaNEREYDA, [place] [phone] MEDICAL DIRECTORANNE MEJIA M.D.Performed By: #### BMP, SCAN CBC ####[address] [address] USAEstimated GFR40.587 mL/MinNoUNC Health Chatham Physician [facility] HospitalComment on above:Performed By: #### BMP, SCAN CBC ####[address] [address] USAGlucose [Mass/Vol]94 mg/rMBoovyx16-720Tdg [facility] Physician GroupComment on above: Result Comment: Random Glucose Reference Range is dependent on time and content of last meal. Glucose of more than 200 mg/dL in a nonstressed, ambulatory subject supports the diagnosis of Diabetes Mellitus. ADA recommended reference rangePerformed By: #### BMP, SCAN CBC ####[address] [address] USAPotassium [Moles/Vol]4.9 mmol/LNormal3.5-5.1 The [facility] Physician GroupComment on above:Performed By: #### BMP, SCAN CBC ####[address] [address] USASodium [Moles/Vol]144 mmol/POgydqj559-536Tme [facility] Physician GroupComment on above: Performed By: #### BMP, SCAN CBC ####[place] [address] USAUrea nitrogen [Mass/Vol]33 mg/dLHigh7-25The [facility] Physician GroupComment on above:Performed By: #### BMP, SCAN CBC ####[place] [address] USAScan and CBCon 45-84-0429IpuzemoywzklXjrxbzSspaayAti [place] Physician [facility] HospitalComment on above:Performed By: #### BMP, SCAN CBC ####[place] [address] USAAnisocytosis Ql (Bld)SlightHCA Florida Pasadena Hospital Physician GroupComment on above:Performed By: #### BMP, SCAN CBC ####[place] [address] [place] Basophils (Bld) [#/Vol]0.0 10*3/uLNormal0.0-0.2The [facility] Physician [facility] Comment on above:Performed By: #### BMP, SCAN CBC ####[place] [address] USABasophils/100 WBC (Bld)0.5 %Normal. The [facility] Physician GroupComment on above:Performed By: #### BMP, SCAN CBC ####[place] [address] [place] Eosinophils (Bld) [#/Vol]0.0 10*3/uLNormal0.0-0.45The [facility] Physician [facility] Comment on above:Performed By: #### BMP, SCAN CBC ####[place] [address] USAEosinophils/100 WBC (Bld)0.7 %Normal. The [facility] Physician GroupComment on above:Performed By: #### BMP, SCAN CBC ####[place] [address] [place] Erythrocyte distribution width (RBC) [Ratio]15.4 %High11.9-15.3The [facility] Physician GroupComment on above:Performed By: #### BMP, SCAN CBC ####[place] [id number] USAHematocrit (Bld) [Volume fraction]39.8 %Bjnmzz24.0-46.4The [facility] Physician [facility] HospitalComment on above:Performed By: #### BMP, SCAN CBC ####[place] [id number] USAHemoglobin (Bld) [Mass/Vol]13.6 g/dLNormal 11.8-15.4The [facility] Physician GroupComment on above:Performed By: #### BMP, SCAN CBC ####[address] [address] USALarge PlateletsSlightNormalThe [facility] Physician [facility] HospitalComment on above: Result Comment: PERFORMED BY:[address] [place], [place] [phone] MEDICAL DIRECTORANNE MEJIA M.D.Performed By: #### BMP, SCAN CBC ####[address] [address] USALymphocytes (Bld) [#/Vol]1.4 10*3/uL Normal1.00-4.8The [facility] Physician [facility] HospitalComment on above:Performed By: #### BMP, SCAN CBC ####[place] [id number] USALymphocytes/100 WBC (Bld)20.6 %Normal.[facility] Comment on above:Performed By: #### BMP, SCAN CBC ####[place] [id number] USAMCH (RBC) [Entitic mass]31.7 pgNormal 24.7-34.3The [facility] Physician GroupComment on above:Performed By: #### BMP, SCAN CBC ####[address] [address] USAMCV (RBC) [Entitic vol]92.9 jZHrwyil35-827Jeo [facility] Comment on above:Performed By: #### BMP, SCAN CBC ####[place] [id number] USAMean Corpuscular HGB Conc34.2 g/dL [place]52.0-35.0The [facility] Physician GroupComment on above:Performed By: #### BMP, SCAN CBC ####[place] [address] USAMonocytes (Bld) [#/Vol]0.9 10*3/uLHigh0.0-0.8The [facility] Physician GroupComment on above:Performed By: #### BMP, SCAN CBC ####[place] [id number] USAMonocytes/100 WBC (Bld)13.4 % Normal.The [facility] Physician GroupComment on above:Performed By: #### BMP, SCAN CBC ####[place] [address] USANeutrophils (Bld) [#/Vol]4.3 10*3/uLNormal1.8-7.7The [facility] Physician GroupComment on above:Performed By: #### BMP, SCAN CBC ####[place] [id number] USANeutrophils/100 WBC (Bld)64.8 %Normal.The [facility] Physician GroupComment on above:Performed By: #### BMP, SCAN CBC ####[place] [id number] USANRBC%0.1 /100{WBC}Normal0-0.5The [facility] Physician GroupComment on above: Performed By: #### BMP, SCAN CBC ####[place] [id number] USAOvalocytesSlightNormalThe [facility]ician [facility] Comment on above:Performed By: #### BMP, SCAN CBC ####[place] [phone] USAPlatelet EstimateNormalNormalNormal The [facility] Physician GroupComment on above:Performed By: #### BMP, SCAN CBC ####[address] [address] [place] Platelet mean volume (Bld) [Entitic vol]10.7 fLNormal6.3-10.7The [facility] Physician GroupComment on above:Performed By: #### BMP, SCAN CBC ####[address] [address] USAPlatelet Morphology NormalNormalNormPalm Springs General Hospital Physician GroupComment on above:Performed By: #### BMP, SCAN CBC ####[address] [address] USAPlatelets (Bld) [#/Vol]254 10*3/uSFibnav622-358Zuh [facility] Physician GroupComment on above:Performed By: #### BMP, SCAN CBC ####[address] [address] USAPoikilocytosisSlight NormalThe [facility] Physician GroupComment on above:Performed By: #### BMP, SCAN CBC ####[address] [address] [place] RBC (Bld) [#/Vol]4.29 10*6/uLNormal3.60-5.00The [facility] Physician GroupComment on above:Performed By: #### BMP, SCAN CBC ####[address] [address] USATarget CellsSlightNormPalm Springs General Hospital Physician GroupComment on above:Performed By: #### BMP, SCAN CBC ####[address] [address] USAWBC (Bld) [#/Vol]6.6 10*3/uLNormal3.8-11.6The [facility] Physician GroupComment on above:Performed By: #### BMP, SCAN CBC ####[address] [address] USAAppearance of UrineOrdered By: Pa Neil on 08-30-2024 Appearance (U)Urine appearanceCleFairfield Medical CenterBacteria [Presence] in Urine by AutomatedOrdered By: Pa Neil on 08-30-2024 Bacteria Auto Ql (U)Bacteria [Presence] in Urine by AutomatedNone [facility] HospitalBilirubin Test strip Ql (U)Ordered By: Pa Neil on 29-75-1532Zydbitfvp Ql (U)Bilirubin.total [Presence] in Urine by Test stripNegativeMount St. Mary HospitalColor Auto (U)Ordered By: Pa Neil on 65-98-6486Ryefm (U)Color of Urine by AutoYellowMount St. Mary HospitalDipstick and Microscopicon 15-78-6189Migrvaekep (U)Clear NormalClearThBingham Memorial Hospital Physician GroupComment on above:Order Comment: Name Collection Type:: Clean-Voided MidstreamPerformed By: #### ADDONUAPLUS, CUU ####[address] [place] Bacteria,UrineNone SeenNormalNone SeenBaptist Health Hospital Doral Physician GroupComment on above:Order Comment: Name Collection Type:: Clean-Voided MidstreamPerformed By: #### ADDONUAPLUS, CUU ####[address] USABilirubin,UrineNegativeNormalNegativeBaptist Health Hospital Doral Physician GroupComment on above:Order Comment: Name Collection Type:: Clean- Voided MidstreamPerformed By: #### ADDONUAPLUS, CUU ####[address] USAColor (U)Light-YellowNormal YellowBaptist Health Hospital Doral Physician GroupComment on above:Order Comment: Name Collection Type:: Clean-Voided MidstreamPerformed By: #### ADDONUAPLUS, CUU ####[address] USAGlucose Ql (U)NormalNormalNormPalm Springs General Hospital Physician GroupComment on above:Order Comment: Name Collection Type:: Clean-Voided MidstreamPerformed By: #### ADDONUAPLUS, CUU ####[address] [address] USAHyaline Casts,UrineNoneNormal0-8The [facility] Physician GroupComment on above:Order Comment: Name Collection Type:: Clean-Voided MidstreamPerformed By: #### ADDONUAPLUS, CUU ####[address] USAKetones Ql (U)NegativeNormalNegativeBaptist Health Hospital Doral Physician GroupComment on above:Order Comment: Name Collection Type:: Clean- Voided MidstreamPerformed By: #### ADDONUAPLUS, CUU ####[address] USALeukocyte esterase Test strip Ql (U)2+HighNegativeBaptist Health Hospital Doral Physician GroupComment on above:Order Comment: Name Collection Type:: Clean-Voided MidstreamPerformed By: #### ADDONUAPLUS, CUU ####[address] [place] Mucus,UrineRareNormalThe [facility] Physician GroupComment on above:Order Comment: Name Collection Type:: Clean-Voided MidstreamResult Comment: PERFORMED BY:[place] [address] [place] [place], [place] [phone] MEDICAL DIRECTORANNE OLGUIN M.D.Performed By: #### ADDONUAPLUS, CUU ####[address] [address] USANitrite,UrineNegativeNormalNegativeBaptist Health Hospital Doral Physician GroupComment on above:Order Comment: Name Collection Type:: Clean-Voided MidstreamPerformed By: #### ADDONUAPLUS, CUU ####[address] USAOccult Blood,UrineNegativeNormalNegativeThe [facility] Physician GroupComment on above:Order Comment: Name Collection Type:: Clean- Voided MidstreamResult Comment: PERFORMED BY:[place] [address] [address] [place], [place] [phone] MEDICAL DIRECTORANNE OLGUIN M.D.Performed By: #### DIANNA, CUU ####[place] [address] [address] GarciaN[place], [place]FU[address] USApH (U) 6.5 [pH]Normal5.0-9.0The [facility] Physician GroupComment on above:Order Comment: Name Collection Type:: Clean-Voided MidstreamPerformed By: #### ADDFLAVIAPLUS, CUU ####[address] Pallavishelby [place] [address] USAProtein (U) [Mass/Vol]50 mg/dLHighNegativeThe [facility] Comment on above:Order Comment: Name Collection Type:: Clean-Voided Midstream Performed By: #### DIANNA, CUU ####[address] USARBC,Amdzr37-07Jnvk3-4Mfp [facility] Comment on above:Order Comment: Name Collection Type:: Clean-Voided Midstream Performed By: #### DIANNA, CUU ####[address] PallavifirsthealthskipN[place], [place] USASpecificy [place],Urine1.448Vqylfe2.001-1.030The [facility] Physician GroupComment on above:Order Comment: Name Collection Type:: Clean-Voided MidstreamPerformed By: #### DIANNA, CUU ####[address] PallavifirsthealthsikpNIX[place], [place] USASquamous Epithelial Cell,Urine 1-9Ybdlsl4-6Tlk [facility] Physician GroupComment on above:Order Comment: Name Collection Type:: Clean-Voided MidstreamPerformed By: #### JENNYUAPLUS, CUU ####[address] PallavifirsthealthskipN[place], [place] [place] Urobilinogen,UrineNormalNormalNormalThe [facility] Physician GroupComment on above:Order Comment: Name Collection Type:: Clean-Voided MidstreamPerformed By: #### DIANNA, CUU ####[facility] [address] [facility] Medical Centerskip, [place] USAWBC,Spgwc65-04Gxbm5-7Rqd [facility] Comment on above:Order Comment: Name Collection Type:: Clean-Voided Midstream Performed By: #### DIANNA, CUU ####[facility] [address] [facility] [facility] Hospitalskip, [id number] USAEpithelial cells.squamous [#/area] in Urine sediment by Automated countOrdered By: Pa Neil on 14-45-7916Wjgwnlweyz cells.squamous Auto (Urine sed) [#/Area]Epithelial cells.squamous [#/area] in Urine sediment by Automated count02FSCCI Hospital [facility] Erythrocytes [#/area] in Urine sediment by Automated countOrdered By: Pa Neil on 64-17-1484UXG Auto (Urine sed) [#/Area]Erythrocytes [#/area] in Urine sediment by Automated countRoane General Hospital04FSCCI Hospital LimaGlucose [Mass/volume] in Urine by Test stripOrdered By: Pa Neil on 85-41-6687Caoilyg Test strip (U) [Mass/Vol]Glucose [Mass/volume] in Urine by Test stripNoFairfield Medical CenterHemoglobin Test strip Ql (U) Ordered By: Pa Neil on 81-29-4176Sftrjrcgic Ql (U)Hemoglobin [Presence] in Urine by Test stripNegHolzer Medical Center – Jackson Hyaline casts [#/area] in Urine sediment by Automated countOrdered By: Pa Neil on 17-14-9984Febedvr casts Auto (Urine sed) [#/Area]Hyaline casts [#/area] in Urine sediment by Automated count08Mount St. Mary HospitalKetones Test strip Ql (U)Ordered By: Pa Neil on 08-30-2024 Ketones Ql (U)Ketones [Presence] in Urine by Test stripNegHolzer Medical Center – JacksonLeukocyte esterase [Presence] in Urine by Test strip Ordered By: Pa Neil on 20-32-6844Zzhpkksyx esterase Test strip Ql (U)Leukocyte esterase [Presence] in Urine by Test stripHighNegHolzer Medical Center – JacksonLeukocytes [#/area] in Urine sediment by Automated count Ordered By: Pa Neil on 63-71-5768ZFE Auto (Urine sed) [#/Area] Leukocytes [#/area] in Urine sediment by Automated countHigh0-4FSCCI Hospital LimaMucus [Presence] in Urine by AutomatedOrdered By: Pa Neil on 58-89-8810Hpdyf Auto Ql (U)Mucus [Presence] in Urine by AutomatedMount St. Mary HospitalNitrite Test strip Ql (U)Ordered By: Pa Neil on 24-87-1384Lvzvsnv Ql (U)Nitrite [Presence] in Urine by Test stripNegHolzer Medical Center – JacksonProtein Test strip (U) [Mass/Vol]Ordered By: Pa Neil on 08-99-0482Dgdwjts (U) [Mass/Vol] Protein [Mass/volume] in Urine by Test stripRoane General HospitalNegKindred Healthcarepecific gravity Test strip (U) [Rel density]Ordered By: Pa Neil on 98-56-4839Juwbdvwz gravity (U) [Rel density]Specific gravity of Urine by Test strip1.001-1.030Mount St. Mary HospitalUrine Cultureon 79-97-9774Bicxuzjm identified Cx Nom (U)NormalThe [facility] Comment on above:Performed By: #### CASH BUSTAMANTEU ####[facility] [place] [id number] [facility] MEDICAL CENTERUrine cultureOrdered By: Pa Neil on 13-10-9176Glbhgjqs identified Cx Nom (U)Urine culture [facility] Mary HospitalUrobilinogen Test strip (U) [Mass/Vol]Ordered By: Pa Neil on 92-27-4811Gsfdipwsrsyp (U) [Mass/Vol]Urobilinogen [Mass/volume] in Urine by Test stripNormalMount St. Mary HospitalpH Test strip (U)Ordered By: Pa Neil on 81-10-6568gC (U)pH of Urine by Test strip5.0-9.0Mount [facility]. Mary HospitalECG 12 lead ECGon 08-27-2024 ECG 12 lead ECGNormalThe [facility] Physician GroupAlanine aminotransferase [Enzymatic activity/volume] in Serum or PlasmaOrdered By: Pa Neil on 73-17-1711CPF [Catalytic activity/Vol]Alanine aminotransferase [Enzymatic activity/volume] in Serum or PlasmaLow7-52[facility] Albumin [Mass/volume] in Serum or Plasma by Bromocresol green (BCG) dye binding methoOrdered By: Pa Neil on 08-92-5250Zdbybii BCG dye [Mass/Vol] Albumin [Mass/volume] in Serum or Plasma by Bromocresol green (BCG) dye binding metho3.5-5.7FSCCI Hospital LimaAlkaline phosphatase [Enzymatic activity/volume] in Serum or PlasmaOrdered By: Pa Neil on 03-76-8731SGT [Catalytic activity/Vol]Alkaline phosphatase [Enzymatic activity/volume] in Serum or LrlcdvGfgz80-038IhicscozzMount St. Mary Hospital Aspartate aminotransferase [Enzymatic activity/volume] in Serum or PlasmaOrdered By: Pa Neil on 90-61-2069XWG [Catalytic activity/Vol]Aspartate aminotransferase [Enzymatic activity/volume] in Serum or Nugljn92-59GespduwxhMount St. Mary HospitalBasophils/100 WBC Manual cnt (Bld)Ordered By: Pa Neil on 50-51-3949Kwcqoekod/100 WBC (Bld)Basophils/100 leukocytes in Blood by Manual count0-2FSCCI Hospital LimaBilirubin.total [Mass/volume] in Serum or PlasmaOrdered By: Pa Neil on 62-43-2581Qpegxsunj [Mass/Vol]Bilirubin.total [Mass/volume] in Serum or Plasma0.3-1.0[facility]. Mary HospitalComprehensive Metabolic Panelon 78-94-0636Xnrevoo [Mass/Vol]3.8 g/dLNormal3.5-5.7The [facility] Physician GroupComment on above: Performed By: #### CMP, PAB, DIFF CBC ####[facility] [address] [place] [address] USAAlbumin/Globulin [Mass ratio]1.7 {ratio}Normal The [facility] Physician GroupComment on above:Performed By: #### CMP, PAB, DIFF CBC ####[address] [address] USAALP [Catalytic activity/Vol]107 U/TApvv28-076Zfu [facility] Physician GroupComment on above:Performed By: #### CMP, PAB, DIFF CBC ####[address] [address] USAALT [Catalytic activity/Vol]4 U/LLow 7-52The [facility] Physician GroupComment on above:Performed By: #### CMP, PAB, DIFF CBC ####[address] [address] USAAnion gap [Moles/Vol]10.2 mmol/LNormal6.0-15.0The [facility] Comment on above:Performed By: #### CMP, PAB, DIFF CBC ####[address] [address] USAAST [Catalytic activity/Vol]15 U/PJkzqop77-18Xhv [facility] Physician GroupComment on above:Performed By: #### CMP, PAB, DIFF CBC ####[address] [address] USABilirubin [Mass/Vol]0.5 mg/dLNormal0.3-1.0The [facility]ician GroupComment on above:Performed By: #### CMP, PAB, DIFF CBC ####[address] [address] USACalcium [Mass/Vol] 11.0 mg/dLHigh8.6-10.3The [facility] Physician GroupComment on above:Performed By: #### CMP, PAB, DIFF CBC ####[address] [address] USAChloride [Moles/Vol]108 mmol/VZmca31-073Qel [facility] GroupComment on above:Performed By: #### CMP, PAB, DIFF CBC ####[address] [address] USACO2 [Moles/Vol]29.5 mmol/YZkfwpy52.0-31.0The [facility] Physician GroupComment on above:Performed By: #### CMP, PAB, DIFF CBC ####[place] [address] [place] [address] USACreatinine [Mass/Vol]1.14 mg/dLNormal 0.60-1.20The [facility] Physician [facility] HospitalComment on above:Performed By: #### CMP, PAB, DIFF CBC ####[place] [address] USACreatinine Clr Calc Iejilhzh67.08NormalThe [facility]ician [facility] Comment on above:Performed By: #### CMP, PAB, DIFF CBC ####[place] [address] USAEstimated GFR49.274 mL/Min NormalThe [facility] Physician GroupComment on above:Performed By: #### CMP, PAB, DIFF CBC ####[place] [address] USAGlobulin (S) [Mass/Vol]2.2 g/dLNormalThe [facility] Physician GroupComment on above:Performed By: #### CMP, PAB, DIFF CBC ####[place] [address] USAGlucose [Mass/Vol]86 mg/kVTyyzos55-499 The [facility] Physician GroupComment on above:Result Comment: Random Glucose Reference Range is dependent on time and content of last meal. Glucose of more than 200 mg/dL in a nonstressed, ambulatory subject supports the diagnosis of Diabetes Mellitus. ADA recommended reference rangePerformed By: #### CMP, PAB, DIFF CBC ####[place] [address] USAPotassium [Moles/Vol]3.7 mmol/LNormal3.5-5.1The [facility]ician [facility] Comment on above:Performed By: #### CMP, PAB, DIFF CBC ####[place] [address] USAProtein [Mass/Vol]6.0 g/dLLow 6.4-8.9The [facility] Physician GroupComment on above:Performed By: #### CMP, PAB, DIFF CBC ####[address] [address] USASodium [Moles/Vol]144 mmol/JDgnjye920-575Fby [facility] Comment on above:Performed By: #### CMP, PAB, DIFF CBC ####[address] [address] USAUrea nitrogen [Mass/Vol]22 mg/dLNormal7-25The [facility] Physician GroupComment on above:Performed By: #### CMP, PAB, DIFF CBC ####[address] [address] USADiff and CBCon 53-87-7110PbuuzcyojsjkCtokoeYgkagpYin [place] Physician GroupComment on above:Performed By: #### CMP, PAB, DIFF CBC ####[place] [id number] [place] Basophils/100 WBC (Bld)1 %Normal0-2The [facility] Physician GroupComment on above:Performed By: #### CMP, PAB, DIFF CBC ####[address] [address] USACrenated RBCModerateNoUNC Health Chatham Physician GroupComment on above:Performed By: #### CMP, PAB, DIFF CBC ####[address] [address] [place] Eosinophils/100 WBC (Bld)3 %Normal1-3The [facility]ician GroupComment on above:Performed By: #### CMP, PAB, DIFF CBC ####[address] [address] USAErythrocyte distribution width (RBC) [Ratio]14.9 %Jbmumh82.9-15.3The [facility] Physician GroupComment on above: Performed By: #### CMP, PAB, DIFF CBC ####[address] [address] USAGiant Platelet Tally1 /100{WBC}NormalThe [facility] Physician GroupComment on above:Performed By: #### CMP, PAB, DIFF CBC ####[address] [address] [place] Hematocrit (Bld) [Volume fraction]38.7 %Piocfy09.0-46.4The [facility] Physician GroupComment on above:Performed By: #### CMP, PAB, DIFF CBC ####[place] [address] USAHemoglobin (Bld) [Mass/Vol]13.0 g/oCSucwux45.8-15.4The [facility] Physician GroupComment on above: Performed By: #### CMP, PAB, DIFF CBC ####[place] [address] USALarge PlateletsSlightNormalThe [facility] Physician GroupComment on above:Result Comment: PERFORMED BY:[address] [place], [place] [id number] MEDICAL DIRECTORANNE OLGUIN M.D.Performed By: #### CMP, PAB, DIFF CBC ####[place] [address] [place] Lymphocytes/100 WBC (Bld)28 %Zqclia10-08Pvc [facility] HospitalComment on above:Performed By: #### CMP, PAB, DIFF CBC ####[address]H (RBC) [Entitic mass]31.1 pgNormal 24.7-34.3The [facility] Physician [facility] HospitalComment on above:Performed By: #### CMP, PAB, DIFF CBC ####[address]V (RBC) [Entitic vol]92.3 wCXjpunc50-454Swd [facility] Comment on above:Performed By: #### CMP, PAB, DIFF CBC ####[place] [address] USAMean Corpuscular HGB Conc33.7 g/rRDmvefn95.0-35.0The [facility] Physician [facility] HospitalComment on above:Performed By: #### CMP, PAB, DIFF CBC ####[place] [id number] USAMonocytes/100 WBC (Bld)12 %High2-11The [facility] Physician GroupComment on above:Performed By: #### CMP, PAB, DIFF CBC ####[address] Myelocytes1 %High0-0The [facility] Physician GroupComment on above:Performed By: #### CMP, PAB, DIFF CBC ####[place] [id number] USAOvalocytesModerateNoUNC Health Chatham Physician GroupComment on above:Performed By: #### CMP, PAB, DIFF CBC ####[place] [address] USAPlatelet Estimate NormalNormalNoUNC Health Chatham Physician GroupComment on above:Performed By: #### CMP, PAB, DIFF CBC ####[place] [address] USAPlatelet mean volume (Bld) [Entitic vol]9.9 fLNormal 6.3-10.7The [facility] Physician GroupComment on above:Result Comment: PERFORMED BY:[address] KEELYGerardoRatnaTRUMANSBUR[place], [place] [phone] MEDICAL DIRECTORANNE OLGUIN M.D.Performed By: #### CMP, PAB, DIFF CBC ####[place] [address] USAPlatelets (Bld) [#/Vol]254 10*3/wCYwagmk581-906Prx [facility] Physician GroupComment on above:Performed By: #### CMP, PAB, DIFF CBC ####[place] [id number] [place] PoikilocytosisModerateNoUNC Health Chatham Physician GroupComment on above: Performed By: #### CMP, PAB, DIFF CBC ####[place] [address] USARBC (Bld) [#/Vol]4.19 10*6/uLNormal3.60-5.00 The [facility] Physician GroupComment on above:Performed By: #### CMP, PAB, DIFF CBC ####[address] [address] [place] Reactive Lymphocytes2 %Normal0-12The [facility] Physician GroupComment on above: Performed By: #### CMP, PAB, DIFF CBC ####[address] [address] USASchistocytesSSelect Specialty Hospital - [facility]boro Physician GroupComment on above:Performed By: #### CMP, PAB, DIFF CBC ####[address] [address] [place] Segmented neutrophils/100 WBC (Bld)53 %Zggjcz19-55Knm [facility] Comment on above:Performed By: #### CMP, PAB, DIFF CBC ####[address] [address] USATarget CellsDosher Memorial Hospital Physician GroupComment on above:Performed By: #### CMP, PAB, DIFF CBC ####[address] [address] USAWBC (Bld) [#/Vol]8.9 10*3/uLNormal3.8-11.6The [facility] Physician GroupComment on above:Performed By: #### CMP, PAB, DIFF CBC ####[address] [address] USAEosinophils/100 WBC Manual cnt (Bld) Ordered By: Pa Neil on 03-04-4634Ahpkldmosny/100 WBC (Bld) Eosinophils/100 leukocytes in Blood by Manual count1-3FSCCI Hospital LimaGiant platelets/100 leukocytes [Ratio] in Blood by Manual countOrdered By: Pa Neil on 25-99-0194Lodka platelets/100 WBC Manual cnt (Bld) [Ratio]Giant platelets/100 leukocytes [Ratio] in Blood by Manual countMount St. Mary HospitalGlobulin Calc (S) [Mass/Vol]Ordered By: Pa Neil on 28-17-7995Kozqxjck (S) [Mass/Vol]Serum globulin measurement by calculation (mass/volume)[facility]. Mary HospitalLymphocytes/100 WBC Manual cnt (Bld)Ordered By: Pa Neil on 42-12-2827Usjjtkztvmh/100 WBC (Bld)Lymphocytes/100 leukocytes in Blood by Manual -54JljumeqaqMount St. Mary HospitalMonocytes/100 WBC Manual cnt (Bld)Ordered By: Pa Neil on 30-08-9052Ywksvgzcb/100 WBC (Bld)Monocytes/100 leukocytes in Blood by Manual countHigh2-11[facility] HospitalMyelocytes/100 WBC Manual cnt (Bld)Ordered By: Pa Neil on 25-71-2845Yvgwcarrcj/100 WBC (Bld)Myelocytes/100 leukocytes in Blood by Manual countHigh0-0[facility]. Mary HospitalPrealbuminon 41-47-1743Rodgjhfqvs [Mass/Vol]15.9 mg/dLLow 17.0-34.0The [facility] Physician GroupComment on above:Result Comment: PERFORMED BY:[facility] [place], [place] [phone] MEDICAL DIRECTORANNE OLGUIN M.D.Performed By: #### CMP, PAB, DIFF CBC ####[address] [address] USAPrealbumin [Mass/volume] in Serum or PlasmaOrdered By: Pa Neil on 92-98-3057Hqzjjyclhe [Mass/Vol]Prealbumin [Mass/volume] in Serum or OckragCob24.0-34.0[facility] Mary HospitalProtein [Mass/volume] in Serum or PlasmaOrdered By: Pa Neil on 19-27-7326Ueqcjpi [Mass/Vol] Protein [Mass/volume] in Serum or PlasmaLow6.4-8.9[facility] Valley Hospitalchistocytes [Presence] in Blood by Light microscopyOrdered By: Pa Neil on 51-18-2186Ffezajbdfhhm LM Ql (Bld)Schistocytes [Presence] in Blood by Light microscopyMiami Valley Hospitalegmented neutrophils/100 WBC Manual cnt (Bld)Ordered By: Pa Neil on 50-83-9563Qmbmohrri neutrophils/100 WBC (Bld)Manual blood segmented neutrophils/100 -04 [facility] Valley Hospitalerum or plasma albumin/globulin mass ratio Ordered By: Pa Neil on 73-29-3638Htixafx/Globulin [Mass ratio]Serum or plasma albumin/globulin mass ratioMount St. Mary HospitalVariant lymphocytes/100 WBC Manual cnt (Bld)Ordered By: Pa Neil on 96-39-5671Ibqmlbc lymphocytes/100 WBC (Bld)Variant lymphocytes/100 leukocytes in Blood by Manual count0-12[facility]. Mary HospitalAlanine aminotransferase [Enzymatic activity/volume] in Serum or PlasmaOrdered By: Obmaynor Wagneromar on 83-06-2679RHB [Catalytic activity/Vol]Alanine aminotransferase [Enzymatic activity/volume] in Serum or PlasmaLow7-52[facility] Mary HospitalAlbumin [Mass/volume] in Serum or Plasma by Bromocresol green (BCG) dye binding methoOrdered By: Obbraxtondazoltan Wagneromar on 31-19-6445Wztyhsh BCG dye [Mass/Vol]Albumin [Mass/volume] in Serum or Plasma by Bromocresol green (BCG) dye binding metho3.5-5.7FSCCI Hospital LimaAlkaline phosphatase [Enzymatic activity/volume] in Serum or PlasmaOrdered By: Obbraxtondazoltan Wagneromar on 00-03-8290PMX [Catalytic activity/Vol]Alkaline phosphatase [Enzymatic activity/volume] in Serum or HtrgnzDrnh07-998UsevdxpxrMount St. [facility] Hospital Aspartate aminotransferase [Enzymatic activity/volume] in Serum or PlasmaOrdered By: Obbraxtondah Daromar on 76-39-3876YSQ [Catalytic activity/Vol]Aspartate aminotransferase [Enzymatic activity/volume] in Serum or Qxaxci61-70TsptugtweMount St. Mary HospitalBilirubin.total [Mass/volume] in Serum or PlasmaOrdered By: Obbraxtondah Daromar on 28-48-7714Ppumfohfu [Mass/Vol]Bilirubin.total [Mass/volume] in Serum or Plasma0.3-1.0[facility] HospitalCalcium [Mass/volume] in Serum or PlasmaOrdered By: Obbraxtondah Daromar on 52-35-9611Klzkyvt [Mass/Vol]Calcium [Mass/volume] in Serum or PlasmaHigh8.6-10.3FSCCI Hospital LimaCarbon dioxide, total [Moles/volume] in Serum or Plasma Ordered By: Mariajose Alfred on 22-59-5538KH8 [Moles/Vol]Carbon dioxide, total [Moles/volume] in Serum or Dllnui00.0-31.0[facility] Chloride [Moles/volume] in Serum or PlasmaOrdered By: Mariajose Alfred on 51-73-6439Eqqvayiz [Moles/Vol]Chloride [Moles/volume] in Serum or Hxvjcu97-[address] [facility] HospitalComprehensive Metabolic Panelon 08-25-2024 Albumin [Mass/Vol]3.8 g/dLNormal3.5-5.7The [facility] Physician GroupComment on above:Performed By: #### CMP ####[address] [address] USAAlbumin/Globulin [Mass ratio]1.6 {ratio}NormalThe [facility] Hospital Physician GroupComment on above:Performed By: #### CMP ####[address] [address] USAALP [Catalytic activity/Vol]114 U/KUbie11-048Wgj [facility] Physician GroupComment on above: Performed By: #### CMP ####[address] [address] USAALT [Catalytic activity/Vol]6 U/LLow7-52The [facility] Hospital Physician GroupComment on above:Performed By: #### CMP ####[address] [address] USAAnion gap [Moles/Vol] 9.6 mmol/LNormal6.0-15.0The [facility] Physician GroupComment on above:Performed By: #### CMP ####[address] [address] USAAST [Catalytic activity/Vol]16 U/HQlqmjk46-18Del [facility] Physician GroupComment on above:Performed By: #### CMP ####[address] [address] USABilirubin [Mass/Vol]0.4 mg/dLNormal 0.3-1.0The [facility] Physician GroupComment on above:Performed By: #### CMP ####[address] [address] USACalcium [Mass/Vol]10.7 mg/dLHigh8.6-10.3The [facility] Physician GroupComment on above: Performed By: #### CMP ####[place] [address] USAChloride [Moles/Vol]107 mmol/IUebrvf33-513All [facility] Physician GroupComment on above:Performed By: #### CMP ####[place] [address] USACO2 [Moles/Vol]28.8 mmol/CSlommw61.0-31.0The [facility] Physician GroupComment on above:Performed By: #### CMP ####[place] [address] USACreatinine [Mass/Vol]0.92 mg/dLNormal0.60-1.20The [facility] Comment on above:Performed By: #### CMP ####[place] [address] USACreatinine Clr Calc Dmolfghy59.22NoUNC Health Chatham Physician GroupComment on above:Result Comment: PERFORMED BY:[address] [address] [address], [place] [phone] MEDICAL DIRECTORANNE OLGUIN M.D.Performed By: #### CMP ####[address] [address] USAGFR/1.73 sq M.predicted MDRD (S/P/Bld) [Vol rate/Area]mL/min/{1.73_m2}NormalThe [facility] Physician GroupComment on above:Performed By: #### CMP ####[place] [address] USAGlobulin (S) [Mass/Vol]2.4 g/dLNoUNC Health Chatham Physician GroupComment on above:Performed By: #### CMP ####[place] [address] USAGlucose [Mass/Vol]92 mg/rPYtwquq19-074Xtm [facility] Physician GroupComment on above: Result Comment: Random Glucose Reference Range is dependent on time and content of last meal. Glucose of more than 200 mg/dL in a nonstressed, ambulatory subject supports the diagnosis of Diabetes Mellitus. ADA recommended reference rangePerformed By: #### CMP ####[place] [address] USAPotassium [Moles/Vol]3.4 mmol/LLow3.5-5.1The [facility] Physician GroupComment on above:Performed By: #### CMP ####[place] [address] USAProtein [Mass/Vol]6.2 g/dLLow6.4-8.9The [facility] Physician GroupComment on above:Performed By: #### CMP ####[place] [address] [place] Sodium [Moles/Vol]142 mmol/GMsvevy062-485Hxe [facility] Physician GroupComment on above:Performed By: #### CMP ####[place] [address] USAUrea nitrogen [Mass/Vol]21 mg/dLNormal7-25The [facility] Physician GroupComment on above:Performed By: #### CMP ####[place] [address] USACreatinine [Mass/volume] in Serum or PlasmaOrdered By: Mariajose Alfred on 08-25-2024 Creatinine [Mass/Vol]Creatinine [Mass/volume] in Serum or Plasma0.60-1.[address] [facility] HospitalGlobulin Calc (S) [Mass/Vol]Ordered By: Mariajose Wagneromar on 07-90-4563Sfwzgdvy (S) [Mass/Vol]Serum globulin measurement by calculation (mass/volume)[facility] HospitalGlucose [Mass/volume] in Serum or PlasmaOrdered By: Mariajose Morenor on 68-03-5691Fxklofy [Mass/Vol] Glucose [Mass/volume] in Serum or Frixea35-085ZnsmivkvcMount St. Mary Hospital Comment on above:ADA recommended reference rangeRandom Glucose Reference Range is dependent on time and content of last meal. Glucose of more than 200 mg/dL in a nonstressed, ambulatory subject supports the diagnosisof Diabetes Mellitus.No Panel InformationOrdered By: Mariajose Alfred on 08-93-7356Qybhsapjf GFR (CKD-EPI)> 60.0 mL/MinMount St. Mary HospitalPharmacy Creatinine Clearance (Chem39.22Mount [facility]. Mary HospitalPotassium [Moles/volume] in Serum or PlasmaOrdered By: Mariajose Alfred on 74-57-2427Puqorvhtl [Moles/Vol] Potassium [Moles/volume] in Serum or PlasmaLow3.5-5.1FSCCI Hospital LimaProtein [Mass/volume] in Serum or PlasmaOrdered By: Mariajose Alfred on 99-49-5787Uukkykg [Mass/Vol]Protein [Mass/volume] in Serum or PlasmaLow6.4-8.9 Miami Valley Hospitalerum or plasma albumin/globulin mass ratio Ordered By: Mariajose Alfred on 53-89-8689Mtgtecp/Globulin [Mass ratio]Serum or plasma albumin/globulin mass ratioMiami Valley Hospitalerum or plasma anion gap determinationOrdered By: Mariajose Alfred on 19-19-6112Zteic gap [Moles/Vol]Serum or plasma anion gap determination6.0-15.0[facility] Valley Hospitalodium [Moles/volume] in Serum or PlasmaOrdered By: Mariajose Morenor on 44-06-9215Oywjhg [Moles/Vol]Sodium [Moles/volume] in Serum or Plasma 136-145Mount St. Mary HospitalUrea nitrogen [Mass/volume] in Serum or PlasmaOrdered By: Mariajose Morenor on 93-88-5496Yada nitrogen [Mass/Vol]Urea nitrogen [Mass/volume] in Serum or Plasma7-25[facility] Appearance of UrineOrdered By: Mariajose Alfred on 47-90-6256Ikvtmlvbpa (U)Urine appearanceAbnormalClearMount St. Mary HospitalBacteria [Presence] in Urine by AutomatedOrdered By: Mariajose Alfred on 01-79-9780Hkxxhhrc Auto Ql (U) Bacteria [Presence] in Urine by AutomatedNone [facility] HospitalBasic Metabolic Panelon 55-06-1694Zlwsl gap [Moles/Vol]9.6 mmol/LNormal 6.0-15.0The [facility] Physician GroupComment on above:Performed By: #### BMP, CBCNO ####[facility] [place], [place] [address]HAH Calcium [Mass/Vol]10.4 mg/dLHigh8.6-10.3The [facility] Physician GroupComment on above:Performed By: #### BMP, CBCNO ####[facility] [place], [place] [address]YIFIfawzdkk [Moles/Vol]107 mmol/CXtewjc15-863Bea [facility] Physician GroupComment on above:Performed By: #### BMP, CBCNO ####[place] [place], [place] [address]PTIRV0 [Moles/Vol]28.9 mmol/QPsjqbm15.0-31.0The [facility] Physician GroupComment on above:Performed By: #### BMP, CBCNO ####[facility] [place], [place] [address]CACJeqwhvtvni [Mass/Vol]1.30 mg/dLHigh0.60-1.20The [facility] Physician GroupComment on above:Performed By: #### BMP, CBCNO ####[facility] [place], [place] [address]FMX Creatinine Clr Calc Ymucplyx21.42NormPalm Springs General Hospital Physician GroupComment on above:Result Comment: PERFORMED BY:[address] [address] [address] [place], [place] [phone] MEDICAL DIRECTORANNE MEJIA M.D.Performed By: #### ANA CRISTINA, CBCNO ####[place] [address] [place], [place] [address]VXZWkbhwcvtv GFR42.090 mL/MinNormalThe [facility] Hospital Physician GroupComment on above:Performed By: #### BMP, CBCNO ####[facility] [place] [address]MJTZygwumm [Mass/Vol]95 mg/qUTszxtz44-354Xof [facility] Physician GroupComment on above: Result Comment: Random Glucose Reference Range is dependent on time and content of last meal. Glucose of more than 200 mg/dL in a nonstressed, ambulatory subject supports the diagnosis of Diabetes Mellitus. ADA recommended reference rangePerformed By: #### BMP, CBCNO ####[facility] [address] [place] [address]EZMVomrjzbtn [Moles/Vol]3.5 mmol/LNormal3.5-5.1The [facility] Physician GroupComment on above:Performed By: #### BMP, CBCNO ####[facility] [place], [place] [address]BRSAqofmm [Moles/Vol]142 mmol/QKnenib001-027Zwa [facility] Physician GroupComment on above: Performed By: #### BMP, CBCNO ####[facility] OlivofirsthealthskipN[place], [place] [address]RXIKzvm nitrogen [Mass/Vol]28 mg/dLHigh7-25The [facility] Physician GroupComment on above:Performed By: #### BMP, CBCNO ####[facility] Olivoshelby baptist medical centerchiragNIXON, [place] [address]ZLNDmjvmnqec Test strip Ql (U)Ordered By: Mariajose Alfred on 55-09-5753Salcxpnxq Ql (U)Bilirubin.total [Presence] in Urine by Test stripNegativeMount St. Mary HospitalColor Auto (U)Ordered By: Mariajose Alfred on 98-05-0250Pdepz (U)Color of Urine by Auto YellowMount St. Mary HospitalDipstick and Microscopicon 08-24-2024 Appearance (U)CloudyCritically abnormalClearThe [facility] Physician GroupComment on above:Order Comment: Name Collection Type:: Clean-Voided MidstreamPerformed By: #### ADDONUAPLUS ####[address] [place] [address] USABacteria,UrineNone SeenNormalNone SeenBaptist Health Hospital Doral Physician GroupComment on above:Order Comment: Name Collection Type:: Clean- Voided MidstreamPerformed By: #### ADDONUAPLUS ####[address] [address] USABilirubin,UrineNegativeNormalNegative [facility] Physician GroupComment on above:Order Comment: Name Collection Type:: Clean-Voided MidstreamPerformed By: #### ADDONUAPLUS ####[address] [address] USAColor (U)Light-Yellow NormalYellowBaptist Health Hospital Doral Physician GroupComment on above:Order Comment: Name Collection Type:: Clean-Voided MidstreamPerformed By: #### ADDONUAPLUS ####[address] [address] USAGlucose Ql (U)NormalNormalNormalThBingham Memorial Hospital Physician GroupComment on above:Order Comment: Name Collection Type:: Clean-Voided MidstreamPerformed By: #### ADDONUAPLUS ####[address] [address] USAHyaline Casts,Ghefm6-5Fmhvrx4-4Cpj [facility] Physician GroupComment on above:Order Comment: Name Collection Type:: Clean-Voided MidstreamPerformed By: #### ADDONUAPLUS ####[address] [address] USAKetones Ql (U)TraceHighNegativeBaptist Health Hospital Doral Physician GroupComment on above:Order Comment: Name Collection Type:: Clean-Voided MidstreamPerformed By: #### ADDONUAPLUS ####[address] [address] USALeukocyte esterase Test strip Ql (U)NegativeNormalNegativeBaptist Health Hospital Doral Physician GroupComment on above:Order Comment: Name Collection Type:: Clean-Voided MidstreamPerformed By: #### ADDONUAPLUS ####[address] [address] USAMucus,UrineRareNormalThe [facility] Physician GroupComment on above:Order Comment: Name Collection Type:: Clean-Voided MidstreamResult Comment: PERFORMED BY:[address] [place] [address] [place] [place], [place] [phone] MEDICAL DIRECTORDINAHOUR LADY OF LOURDES MEMORIAL HOSPITALNICKO OLGUIN M.D.Performed By: #### ADDONUAPLUS ####[address] [address] USANitrite,UrineNegative NormalNegativeThe [facility] Physician GroupComment on above:Order Comment: Name Collection Type:: Clean-Voided MidstreamPerformed By: #### ADDONUAPLUS ####[address] [address] USAOccult Blood,Urine2+HighNegativeThe [facility] Physician GroupComment on above:Order Comment: Name Collection Type:: Clean-Voided MidstreamResult Comment: PERFORMED BY:[address] [address] [address] [place], [place] [phone] MEDICAL DIRECTORMOTRINO OLGUIN M.D.Performed By: #### ADDONUAPLUS ####[address] [address] USApH (U)6.5 [pH]Normal5.0-9.0The [facility] Physician GroupComment on above:Order Comment: Name Collection Type:: Clean-Voided MidstreamPerformed By: #### ADDONUAPLUS ####[address] [address] USAProtein (U) [Mass/Vol]30 mg/dLHighNegativeThe [facility] Physician GroupComment on above:Order Comment: Name Collection Type:: Clean-Voided MidstreamPerformed By: #### ADDONUAPLUS ####[address] [address] USARBC,UrineInnumerableHigh0-4The [facility] Physician GroupComment on above:Order Comment: Name Collection Type:: Clean- Voided MidstreamPerformed By: #### ADDONUAPLUS ####[place] [address] USASpecificy [place],Urine1.018Normal 1.001-1.030The [facility] Physician GroupComment on above:Order Comment: Name Collection Type:: Clean-Voided MidstreamPerformed By: #### ADDONUAPLUS ####[address] Urobilinogen,UrineNormalNormalNormalThe [facility] Physician GroupComment on above:Order Comment: Name Collection Type:: Clean-Voided MidstreamPerformed By: #### ADDONUAPLUS ####[place] [address] USAWBC,Baxfw0-5Otjb4-6Quw [facility] Physician GroupComment on above:Order Comment: Name Collection Type:: Clean-Voided MidstreamPerformed By: #### ADDONUAPLUS ####[place] [address] USAEpithelial cells.squamous [#/area] in Urine sediment by Automated count Ordered By: Mariajose Alfred on 37-17-7674Gnlnjwmeiz cells.squamous Auto (Urine sed) [#/Area]Epithelial cells.squamous [#/area] in Urine sediment by Automated countMount St. Mary HospitalErythrocyte distribution width Auto (RBC) [Ratio]Ordered By: Mariajose Alfred on 36-70-9301Uppakfshymn distribution width (RBC) [Ratio]Erythrocyte distribution width [Ratio] by Automated count11.9-15.[address] [facility] HospitalErythrocytes [#/area] in Urine sediment by Automated countOrdered By: Mariajose Alfred on 93-45-7742ETQ Auto (Urine sed) [#/Area]Erythrocytes [#/area] in Urine sediment by Automated countHigh0-[address] [facility] HospitalGlucose [Mass/volume] in Urine by Test strip Ordered By: Mariajose Alfred on 18-04-1499Rismvhz Test strip (U) [Mass/Vol] Glucose [Mass/volume] in Urine by Test stripNoFairfield Medical CenterHematocrit Auto (Bld) [Volume fraction]Ordered By: maynor Morenor on 08-64-5078Keuitoghui (Bld) [Volume fraction]Hematocrit [Volume Fraction] of Blood by Automated count34.0-46.4FSCCI Hospital LimaHemoglobin Test strip Ql (U)Ordered By: jacksonRiver Valley Behavioral Health Hospitalomar on 75-30-9433Dkwuhxcive Ql (U) Hemoglobin [Presence] in Urine by Test stripHighNegativeMount St. Mary HospitalHemoglobin [Mass/volume] in BloodOrdered By: [facility] Psychiatric Centeromar on 94-73-1396Dqhqeopoxj (Bld) [Mass/Vol]Hemoglobin [Mass/volume] in Blood11.8-15.[address] [facility] HospitalHemogram CBC Without Diffon 08-24-2024 Erythrocyte distribution width (RBC) [Ratio]14.7 %Uehuxz21.9-15.3The [facility] Physician GroupComment on above:Performed By: #### BMP, CBCNO ####[address] [place] [place], [place] [address]ZBKSgzipukome (Bld) [Volume fraction]39.6 %Vjazxa12.0-46.4The [facility] Physician GroupComment on above:Performed By: #### BMP, CBCNO ####[address] [address]TVWKmdmjzqzmd (Bld) [Mass/Vol]13.6 g/lAToefgc65.8-15.4 The [facility] Physician GroupComment on above:Performed By: #### BMP, CBCNO ####[address] [address]NPLJQV (RBC) [Entitic mass]31.3 suPgphtl00.7-34.3The [facility] Physician GroupComment on above:Performed By: #### BMP, CBCNO ####[address] [place], [place] [address]DQSLXK (RBC) [Entitic vol]91.6 jQZvybye41-082Vgx [facility] Physician GroupComment on above:Performed By: #### BMP, CBCNO ####[facility] [place], [place] [address]RKYRmgo Corpuscular HGB Conc34.2 g/iSYkrdws12.0-35.0The [facility] Physician GroupComment on above:Performed By: #### BMP, CBCNO ####[facility] [place], [place] [address]BXPItcgcaiv mean volume (Bld) [Entitic vol]9.7 fL Normal6.3-10.7The [facility] Physician GroupComment on above:Result Comment: PERFORMED BY:[address] [place], [place] [phone] MEDICAL DIRECTORANNE OLGUIN M.D. Performed By: #### ANA CRISTINA, CBCNO ####[address] [place], [place] [address]BUKLrgeyuyrp (Bld) [#/Vol]286 10*3/cFPtikpk536-630Iuc [facility] Physician GroupComment on above:Performed By: #### BMP, CBCNO ####[facility] [place], [place] [address]UORVSM (Bld) [#/Vol]4.33 10*6/uLNormal3.60-5.00The [facility] Physician GroupComment on above:Performed By: #### BMP, CBCNO ####[address] [address]TNGVND (Bld) [#/Vol]9.9 10*3/uLNormal3.8-11.6The [facility] Physician GroupComment on above:Performed By: #### BMP, CBCNO ####[address] [place], [place] [address]UACTyzszqz casts [#/area] in Urine sediment by Automated countOrdered By: Mariajose Alfred on 27-27-7866Zmrznwl casts Auto (Urine sed) [#/Area]Hyaline casts [#/area] in Urine sediment by Automated count0-8Mount [facility]. Mary HospitalKetones Test strip Ql (U)Ordered By: Mariajose Alfred on 51-96-4272Wlllwyu Ql (U)Ketones [Presence] in Urine by Test stripHighNegativeMount St. Mary Hospital Leukocyte esterase [Presence] in Urine by Test stripOrdered By: Mariajose Alfred on 79-43-7771Ctiktzpww esterase Test strip Ql (U)Leukocyte esterase [Presence] in Urine by Test stripNegativeMount St. Mary HospitalLeukocytes [#/area] in Urine sediment by Automated countOrdered By: Mariajose Alfred on 06-18-2499EYB Auto (Urine sed) [#/Area]Leukocytes [#/area] in Urine sediment by Automated countHigh0-4FSCCI Hospital LimaLeukocytes [#/volume] corrected for nucleated erythrocytes in Blood by Automated counOrdered By: Mariajose Alfred on 54-53-5569BZC corrected for nucl RBC Auto (Bld) [#/Vol] Leukocytes [#/volume] corrected for nucleated erythrocytes in Blood by Automated coun3.8-11.6FSCCI Hospital LimaMCH Auto (RBC) [Entitic mass] Ordered By: Mariajose Alfred on 95-45-3708EZO (RBC) [Entitic mass]MCH [Entitic mass] by Automated count24.7-34.3FSCCI Hospital LimaMCHC Auto (RBC) [Mass/Vol]Ordered By: Mariajose Alfred on 88-91-1225QSLF (RBC) [Mass/Vol] MCHC [Mass/volume] by Automated count32.0-35.0[facility] MCV Auto (RBC) [Entitic vol]Ordered By: Mariajose Alfred on 23-10-6834YJZ (RBC) [Entitic vol]MCV [Entitic volume] by Automated ccmev90-224CiambpgdsMount St. Mary HospitalMucus [Presence] in Urine by AutomatedOrdered By: Mariajose Alfred on 42-51-7450Qlmvr Auto Ql (U)Mucus [Presence] in Urine by AutomatedMount St. Mary HospitalNitrite Test strip Ql (U)Ordered By: Mariajose Alfred on 59-74-3624Mmyotto Ql (U)Nitrite [Presence] in Urine by Test stripNegative [facility] Mary HospitalPlatelet mean volume Auto (Bld) [Entitic vol] Ordered By: Obaydah Daromar on 25-28-9641Qlekwetz mean volume (Bld) [Entitic vol]Platelet mean volume [Entitic volume] in Blood by Automated count6.3-10.[address] [facility] HospitalPlatelets Auto (Bld) [#/Vol]Ordered By: Obaydah Daromar on 32-75-4457Lyqxqnqrz (Bld) [#/Vol]Platelets [#/volume] in Blood by Automated qneng322-516NgfmlrwpgMount St. Mary HospitalProtein Test strip (U) [Mass/Vol]Ordered By: Obbraxtondazoltan Wagneromar on 18-48-7486Xlxgcfu (U) [Mass/Vol]Protein [Mass/volume] in Urine by Test stripHighNegativeMount St. Mary HospitalRBC Auto (Bld) [#/Vol]Ordered By: Obaydah Daromar on 41-16-6102TOI (Bld) [#/Vol]Erythrocytes [#/volume] in Blood by Automated count3.60-5.00Miami Valley Hospitalpecific gravity Test strip (U) [Rel density]Ordered By: Obbraxtondazoltan Wagneromar on 04-40-6990Txadmoie gravity (U) [Rel density]Specific gravity of Urine by Test strip1.001-1.030[facility] Mary HospitalUrobilinogen Test strip (U) [Mass/Vol]Ordered By: Obbraxtondah Daromar on 34-01-7766Xdrjeexawdkk (U) [Mass/Vol]Urobilinogen [Mass/volume] in Urine by Test stripNormalMount St. Mary HospitalpH Test strip (U)Ordered By: Obbraxtondazoltan Daromar on 64-86-2324yQ (U)pH of Urine by Test strip5.0-9.0[facility] HospitalComprehensive Metabolic Panelon 83-44-1731Baelunx [Mass/Vol]4.4 g/dLNormal 3.5-5.7The [facility] Physician GroupComment on above:Performed By: #### [id number], CMP, MG, TSH3 ####[place] [id number] USAAlbumin/Globulin [Mass ratio]1.8 {ratio}NormalThe [facility] Physician GroupComment on above:Performed By: #### [id number], CMP, MG, TSH3 ####[address] [address] [place] ALP [Catalytic activity/Vol]125 U/EWptf33-858Fsr [facility] Comment on above:Performed By: #### [id number], CMP, MG, TSH3 ####[place] [address] USAALT [Catalytic activity/Vol]4 U/LLow7-52The [facility] Physician GroupComment on above:Performed By: #### [id number], CMP, MG, TSH3 ####[place] [address] USAAnion gap [Moles/Vol]15.4 mmol/LHigh6.0-15.0The [facility] Physician GroupComment on above:Performed By: #### [id number], CMP, MG, TSH3 ####[place] [address] [place] AST [Catalytic activity/Vol]26 U/SNxwoga52-50Scc [facility] Comment on above:Performed By: #### [id number], CMP, MG, TSH3 ####[place] [address] USABilirubin [Mass/Vol] 0.7 mg/dLNormal0.3-1.0The [facility] Physician GroupComment on above:Performed By: #### [id number], CMP, MG, TSH3 ####[place] [address] USACalcium [Mass/Vol]9.9 mg/dLNormal8.6-10.3The [facility] Physician GroupComment on above:Performed By: #### [id number], CMP, MG, TSH3 ####[place] [address] [place] Chloride [Moles/Vol]107 mmol/VQksjib58-572Rzi [facility] Physician GroupComment on above:Performed By: #### [id number], CMP, MG, TSH3 ####[place] [address] USACO2 [Moles/Vol]25.0 mmol/L Owgzit70.0-31.0The [facility] Physician GroupComment on above:Performed By: #### [id number], CMP, MG, TSH3 ####[place] [address] USACreatinine [Mass/Vol]0.95 mg/dLNormal0.60-1.20The [facility] Physician GroupComment on above:Performed By: #### [id number], CMP, MG, TSH3 ####[place] [address] [place] Creatinine Clr Calc Whlpegsf43.60NormPalm Springs General Hospital Physician GroupComment on above:Performed By: #### [id number], CMP, MG, TSH3 ####[place] [address] USAGFR/1.73 sq M.predicted MDRD (S/P/Bld) [Vol rate/Area]mL/min/{1.73_m2}NormalThe [facility] Comment on above:Performed By: #### [id number], CMP, MG, TSH3 ####[place] [address] USAGlobulin (S) [Mass/Vol]2.4 g/dLNormPalm Springs General Hospital Physician [facility] HospitalComment on above:Performed By: #### [id number], CMP, MG, TSH3 ####[place] [address] USAGlucose [Mass/Vol]87 mg/oWKgeckg44-087Bxr [facility] Physician GroupComment on above:Result Comment: Random Glucose Reference Range is dependent on time and content of last meal. Glucose of more than 200 mg/dL in a nonstressed, ambulatory subject supports the diagnosis of Diabetes Mellitus. ADA recommended reference rangePerformed By: #### [id number], CMP, MG, TSH3 ####[address] Potassium [Moles/Vol]3.4 mmol/LLow3.5-5.1The [facility] Physician GroupComment on above:Performed By: #### [id number], CMP, MG, TSH3 ####[place] [address] USAProtein [Mass/Vol]6.8 g/dL Normal6.4-8.9The [facility] Physician GroupComment on above:Performed By: #### [id number], CMP, MG, TSH3 ####[place] [address] USASodium [Moles/Vol]144 mmol/XMegfsj141-038Wor [facility] Physician GroupComment on above:Performed By: #### [id number], CMP, MG, TSH3 ####[address] Urea nitrogen [Mass/Vol]20 mg/dLNormal7-25The [facility] Hospital Physician GroupComment on above:Performed By: #### [id number], CMP, MG, TSH3 ####[place] [id number] USAFolate [Mass/volume] in Serum or PlasmaOrdered By: Mariajose Alfred on 74-56-0873Ihyqpf [Mass/Vol]Folate [Mass/volume] in Serum or Plasma>5.9Mount St. Mary HospitalComment on above:Folate reference range: >5.9 ng/mlThe WHO technical consultation on folate and vitamin w94nmicfcekcyqd has determined that folate concentrations lessthan 4 ng/ml are considered deficient.Magnesiumon 29-42-8667Sprihdvsx [Mass/Vol]1.8 mg/dLLow1.9-2.7The [facility] Physician GroupComment on above:Performed By: #### [id number], CMP, MG, TSH3 ####[place] [id number] USAMagnesium [Mass/volume] in Serum or PlasmaOrdered By: Mariajose Wagneromar on 22-37-9464Qollyszfy [Mass/Vol]Magnesium [Mass/volume] in Serum or PlasmaLow1.9-2.7FSCCI Hospital LimaThyroid Stimulating Hormoneon 35-60-3504JKA Qn0.86 m[IU]/LNormal0.45-5.33The [facility] Physician GroupComment on above:Result Comment: PERFORMED BY:[address] [place], [place] [phone] MEDICAL DIRECTORANNE OLGUIN M.D.Performed By: #### [id number], CMP, MG, TSH3 ####[place] [address] [place] [address] [facility] Thyrotropin [Units/volume] in Serum or PlasmaOrdered By: Mariajose Morenor on 16-74-3729SPO QnThyrotropin [Units/volume] in Serum or Plasma0.45-5.33Mount St. Mary HospitalVit. B12/Folate Profileon 00-37-3133Vfdtiiffn (Vitamin B12) [Mass/Vol]590 pg/hKUmlhfm061-628Fdk [facility] Physician GroupComment on above:Performed By: #### [id number], CMP, MG, TSH3 ####[address] [address] MGABucrig80.0 ng/mLNormal>5.9The [facility] Hospital Physician GroupComment on above:Result Comment: Folate reference range: >5.9 ng/ml The WHO technical consultation on folate and vitamin b12 deficiencies has determined that folate concentrations less than 4 ng/ml are considered deficient.Performed By: #### [id number], CMP, MG, TSH3 ####[address] [address] USAVitamin B12 ser/plas Ordered By: Mariajose Wagneromar on 04-47-5196Vhthknazt (Vitamin B12) [Mass/Vol] Vitamin B12 ser/wcsy733-344TxcplpqkkMount St. Mary HospitalBasic Metabolic Panelon 16-44-9234Mcrjs gap [Moles/Vol]14.5 mmol/LNormal6.0-15.0The [facility] Hospital Physician GroupComment on above:Order Comment: need 2 peoplePerformed By: #### RONA, BMP ####[facility] [place] [address] USACalcium [Mass/Vol]11.1 mg/dLHigh8.6-10.3The [facility] Hospital Physician GroupComment on above:Order Comment: need 2 peoplePerformed By: #### RONA, BMP ####[place] [address] [facility] [place] [address]NDCFtkuxypj [Moles/Vol] 107 mmol/KGdmxvo62-515Bwk [facility] Physician GroupComment on above:Order Comment: need 2 peoplePerformed By: #### RONA, BMP ####[place] [address] [place], [place] [address]LLVVJ8 [Moles/Vol]24.0 mmol/L Faxpsw88.0-31.0The [facility] Hospital Physician GroupComment on above:Order Comment: need 2 peoplePerformed By: #### RONA, BMP ####[place] [address] [place], [place] [address]QYGKttttgqqfv [Mass/Vol]1.17 mg/dLNormal0.60-1.20 The [facility] Physician GroupComment on above:Order Comment: need 2 people Performed By: #### RONA, BMP ####[place] [address] [place], [place] [address]EBKRdfecmpuln Clr Calc Oqugwajk61.53NormPalm Springs General Hospital Physician GroupComment on above:Order Comment: need 2 peopleResult Comment: PERFORMED BY:[place] [address] [place] [place], [place] [phone] MEDICAL DIRECTORANNE OLGUIN M.D. Performed By: #### RONA, BMP ####[facility] [place], [place] [address]DWOAvvfxacii GFR47.762 mL/MinNoUNC Health Chatham Physician GroupComment on above:Order Comment: need 2 peoplePerformed By: #### RONA, BMP ####[place] [address] [place] [address] USAGlucose [Mass/Vol]72 mg/sHJscnqd54-899Rhv [facility] Physician GroupComment on above:Order Comment: need 2 peopleResult Comment: Random Glucose Reference Range is dependent on time and content of last meal. Glucose of more than 200 mg/dL in a nonstressed, ambulatory subject supports the diagnosis of Diabetes Mellitus. ADA recommended reference rangePerformed By: #### TREVANO, BMP ####[address] [address]EDV Potassium [Moles/Vol]3.5 mmol/LNormal3.5-5.1The [facility] Physician GroupComment on above:Order Comment: need 2 peoplePerformed By: #### RONA, BMP ####[address] [address]IJXCffvgn [Moles/Vol]142 mmol/JScykmw252-862Nbx [facility] Physician GroupComment on above: Order Comment: need 2 peoplePerformed By: #### RONA, BMP ####[address] [address]CYBMbch nitrogen [Mass/Vol]16 mg/dLNormal7-25The [facility] Physician GroupComment on above:Order Comment: need 2 peoplePerformed By: #### RONA, BMP ####[address] [address]ZJLCrthaoww CBC Without Diffon 08-22-2024 Erythrocyte distribution width (RBC) [Ratio]14.5 %Hfxwgi21.9-15.3The [facility] Physician GroupComment on above:Order Comment: need 2 peoplePerformed By: #### TREVANO, BMP ####[address] [address] USAHematocrit (Bld) [Volume fraction]38.9 %Vaukcf92.0-46.4The [facility] Physician GroupComment on above:Order Comment: need 2 peoplePerformed By: #### RONA, BMP ####[address] [address] USAHemoglobin (Bld) [Mass/Vol]13.3 g/tEUzluat93.8-15.4The [facility] Physician GroupComment on above:Order Comment: need 2 peoplePerformed By: #### CBCNO, BMP ####[facility] [place] [address]PDOFSX (RBC) [Entitic mass]31.3 pvNvtgji47.7-34.3The [facility] Physician GroupComment on above:Order Comment: need 2 peoplePerformed By: #### CBCNO, BMP ####[place] [address] [facility] Hospitalchirag[place], [place] [address]SUPNUP (RBC) [Entitic vol]91.8 zCNvzkuv85-086Hwt [facility] Physician GroupComment on above:Order Comment: need 2 peoplePerformed By: #### CBCNO, BMP ####[address]ag[place], [place] [address]OJXQhjg Corpuscular HGB Conc34.1 g/wMOevpah35.0-35.0The [facility] Physician GroupComment on above:Order Comment: need 2 peoplePerformed By: #### CBCNO, BMP ####[address] [place], [place] [address]CKDXlazfiau mean volume (Bld) [Entitic vol]9.5 fLNormal6.3-10.7The [facility] Physician GroupComment on above:Order Comment: need 2 peopleResult Comment: PERFORMED BY:[place] [address] [address] [place]KY[place], [place] [phone] MEDICAL DIRECTORANNE OLGUIN M.D.Performed By: #### CBCNO, BMP ####[address] Pallavishelby baptist medical centerchirag[place], [place] [address]HHDQxvrszktm (Bld) [#/Vol]319 10*3/bYFergxn583-997Ryz [facility] Physician GroupComment on above: Order Comment: need 2 peoplePerformed By: #### CBCNO, BMP ####[address] Pallavishelby baptist medical centerchirag[place], [place] [address]CTWOVS (Bld) [#/Vol]4.24 10*6/uL Normal3.60-5.00The [facility] Physician GroupComment on above:Order Comment: need 2 peoplePerformed By: #### CBCNO, BMP ####[facility] [place], [place] [address]AVVYYH (Bld) [#/Vol]9.7 10*3/uLNormal3.8-11.6The [facility] Physician GroupComment on above:Order Comment: need 2 peoplePerformed By: #### CBCNO, BMP ####[facility] [place], [place] [address]UJZGxdbvkgfts.intact [Mass/volume] in Serum or PlasmaOrdered By: Mariajose Alfred on 85-11-6149Ymbmmfhzly.intact [Mass/Vol]Parathyrin.intact [Mass/volume] in Serum or Urhoct60-94GucnwbzodMount St. Mary Hospital Parathyroid Hormone Intacton 15-22-2451Tjgrgzctwcq Hormone Awpijz18.2 pg/mL Zafcgp92-81Jng [facility] Physician GroupComment on above:Order Comment: Comment addResult Comment: PERFORMED BY:[address] [place], [place] [phone] MEDICAL DIRECTORANNE MEJIA M.D.Performed By: #### PTH ####[place] [address] [place] [address] USAAcanthocytes [Presence] in Blood by Light microscopyOrdered By: Ebony Scott on 61-92-7225Sqmmnywghqws LM Ql (Bld) Acanthocytes [Presence] in Blood by Light microscopyMount St. Mary HospitalBasic Metabolic Panelon 28-78-9464Wimjh gap [Moles/Vol]10.9 mmol/LNormal 6.0-15.0The [facility] Physician GroupComment on above:Performed By: #### MG, SCAN CBC, BMP ####[facility] [place] [address] USACalcium [Mass/Vol]10.6 mg/dLHigh8.6-10.3The [facility] Comment on above:Performed By: #### MG, SCAN CBC, BMP ####[facility] [place] [address] USAChloride [Moles/Vol]108 mmol/L Gvvu80-179Bzu [facility] Physician GroupComment on above:Performed By: #### MG, SCAN CBC, BMP ####[facility] [address] [place] [address] USACO2 [Moles/Vol]23.8 mmol/HEmlryk13.0-31.0The [facility] Physician [facility] Comment on above:Performed By: #### MG, SCAN CBC, BMP ####[place] [address] [place] [address] USACreatinine [Mass/Vol]1.15 mg/dLNormal0.60-1.20The [facility] Physician GroupComment on above:Performed By: #### MG, SCAN CBC, BMP ####[place] [address] [place] [address] USACreatinine Clr Calc Axlrljar34.54NormPalm Springs General Hospital Physician GroupComment on above:Performed By: #### MG, SCAN CBC, BMP ####[place] [address] [place] [address] [place] Estimated GFR48.760 mL/MinNoUNC Health Chatham Physician GroupComment on above: Performed By: #### MG, SCAN CBC, BMP ####[facility] [address] [place] [address] USAGlucose [Mass/Vol]89 mg/hUPqbyxs17-442Dxh [facility] Physician GroupComment on above:Result Comment: Random Glucose Reference Range is dependent on time and content of last meal. Glucose of more than 200 mg/dL in a nonstressed, ambulatory subject supports the diagnosis of Diabetes Mellitus. ADA recommended reference rangePerformed By: #### MG, SCAN CBC, BMP ####[facility] [place] [address] USAPotassium [Moles/Vol]3.7 mmol/LNormal3.5-5.1The [facility] Physician [facility] Comment on above:Performed By: #### MG, SCAN CBC, BMP ####[facility] [place] [address] USASodium [Moles/Vol]139 mmol/L Uosfvj817-127Buq [facility] Physician GroupComment on above:Performed By: #### MG, SCAN CBC, BMP ####[facility] [place] [address] USAUrea nitrogen [Mass/Vol]19 mg/dLNormal7-25The [facility] Physician GroupComment on above:Performed By: #### MG, SCAN CBC, BMP ####[facility] [place] [address] USABasophils Auto (Bld) [#/Vol]Ordered By: Ebony Scott on 57-51-3385Bkzxiukqp (Bld) [#/Vol]Automated basophil count0.0-0.2FSCCI Hospital LimaBasophils/100 WBC Auto (Bld)Ordered By: Ebony Scott on 73-73-6913Dkgkainjg/100 WBC (Bld)Automated basophil %.[facility] HospitalBlood Cultureon 68-27-7216Oirptfuu identified Cx Nom (Bld)NO GROWTH 5 DAYS PERFORMED BY: [facility] [address] [place] [address] PATHOLOGIST [employer] SUPERVISOR ANNE OLGUIN M.D.NormalThe [facility] Physician GroupComment on above: Performed By: #### CUBLD ####[place] [address] [place] [address] USABurr cells [Presence] in Blood by Light microscopy Ordered By: Ebony Scott on 02-11-1632Jnsg cells LM Ql (Bld)Cabrera cells [Presence] in Blood by Light microscopyMount St. Mary HospitalEosinophils Auto (Bld) [#/Vol]Ordered By: Ebony Scott on 57-42-8745Fmoulwqxvqa (Bld) [#/Vol] Automated eosinophil count0.0-0.45[facility] Eosinophils/100 WBC Auto (Bld)Ordered By: Ebony Scott on 08-21-2024 Eosinophils/100 WBC (Bld)Automated eosinophil %.[facility]. Mary HospitalErythrocyte morphology finding [Identifier] in BloodOrdered By: Ebony Scott on 36-71-2893QEX morphology finding Nom (Bld)RBC morphologyMount St. Mary HospitalLaboratory - Microbiology and Antimicrobial susceptibilityOrdered By: Damaso Charlton on 01-96-6550Djswdvuc identified Cx Nom (Bld)NO GROWTH [address] Mary HospitalLymphocytes Auto (Bld) [#/Vol]Ordered By: Ebony Scott on 29-93-0520Sohnhvovapj (Bld) [#/Vol]Lymphocytes [#/volume] in Blood by Automated count1.00-4.8[facility] Lymphocytes/100 WBC Auto (Bld)Ordered By: Ebony Scott on 08-21-2024 Lymphocytes/100 WBC (Bld)Lymphocytes/100 leukocytes in Blood by Automated count. [facility] Mary HospitalMagnesiumon 08-15-0976Botnyveax [Mass/Vol]1.7 mg/dLLow1.9-2.7The [facility] Physician GroupComment on above:Result Comment: PERFORMED BY:[facility] [place], [place] [phone] MEDICAL DIRECTORANNE OLGUIN M.D. Performed By: #### MG, SCAN CBC, BMP ####[facility] [address] [place] [address] USAMonocytes Auto (Bld) [#/Vol]Ordered By: Ebony Scott on 11-20-8992Mdqbtnoio (Bld) [#/Vol]Automated blood monocyte countHigh 0.0-0.8Mount [facility]. Mary HospitalMonocytes/100 WBC Auto (Bld)Ordered By: Ebony Scott on 13-34-3623Wcentnncq/100 WBC (Bld)Automated monocyte %.[facility] Mary HospitalNeutrophils Auto (Bld) [#/Vol]Ordered By: Ebony Scott on 64-02-5736Arcnbyrugfr (Bld) [#/Vol]Neutrophils [#/volume] in Blood by Automated count1.8-7.7FSCCI Hospital LimaNeutrophils/100 WBC Auto (Bld) Ordered By: Ebony Scott on 34-99-4721Urrwdosblgx/100 WBC (Bld)Automated neutrophil %.[facility]. Mary HospitalNucleated erythrocytes [Presence] in Blood by Automated countOrdered By: Ebony Scott on 52-04-6647Hptpgtupw RBC Auto Ql (Bld)Nucleated erythrocytes [Presence] in Blood by Automated count0-0.[address] Mary HospitalPlatelet adequacy [Presence] in Blood by Light microscopyOrdered By: Ebony Scott on 77-75-0007Gaekqfeeq LM Ql (Bld)Platelet adequacy [Presence] in Blood by Light microscopyNormalMount St. Mary HospitalPlatelet morphology finding [Identifier] in BloodOrdered By: Ebony Scott on 48-75-2009Wmffwfuf morphology finding Nom (Bld)Platelet morphology finding [Identifier] in BloodMount St. Mary HospitalPlatelets Large [Presence] in Blood by Light microscopyOrdered By: Ebony Scott on 62-63-3438Teyhjugou Large LM Ql (Bld)Platelets Large [Presence] in Blood by Light microscopy [facility] Mary HospitalPoikilocytosis [Presence] in Blood by Light microscopyOrdered By: Ebony Scott on 11-41-0025Chhddbmmgkdddm LM Ql (Bld) Poikilocytosis [Presence] in Blood by Light microscopyMiami Valley Hospitalcan and CBCon 02-80-1674OeflmwaswlonFurxvbHacyfxVvx [facility] Physician GroupComment on above:Performed By: #### MG, SCAN CBC, BMP ####[facility] [address] [place] [address] USABasophils (Bld) [#/Vol]0.1 10*3/uLNormal0.0-0.2The [facility] Physician GroupComment on above: Performed By: #### MG, SCAN CBC, BMP ####[facility] [address] [place] [address] USABasophils/100 WBC (Bld)1.4 %Normal.The [facility] Physician GroupComment on above:Performed By: #### MG, SCAN CBC, BMP ####[facility] [address] [place] [address] [place] Crenated RBCSSelect Specialty Hospital - Greensboro Physician GroupComment on above:Performed By: #### MG, SCAN CBC, BMP ####[place] [place] [address] USAEosinophils (Bld) [#/Vol]0.2 10*3/uLNormal0.0-0.45 The [facility] Physician GroupComment on above:Performed By: #### MG, SCAN CBC, BMP ####[place] [id number] [place] Eosinophils/100 WBC (Bld)3.3 %Normal.The [facility] Physician GroupComment on above:Performed By: #### MG, SCAN CBC, BMP ####[place] [address] USAErythrocyte distribution width (RBC) [Ratio]14.7 %Dhuacd57.9-15.3The [facility] Physician GroupComment on above: Performed By: #### MG, SCAN CBC, BMP ####[place] [address] USAHematocrit (Bld) [Volume fraction]38.8 %Normal 34.0-46.4The [facility] Physician GroupComment on above:Performed By: #### MG, SCAN CBC, BMP ####[place] [address] USAHemoglobin (Bld) [Mass/Vol]13.2 g/jGYhxlar25.8-15.4The [facility] Physician GroupComment on above:Performed By: #### MG, SCAN CBC, BMP ####[address] [address] USALarge PlateletsSlightNormalThBingham Memorial Hospital Physician GroupComment on above:Result Comment: PERFORMED BY:[address] [place], [place] [phone] MEDICAL DIRECTORANNE OLGUIN M.D. Performed By: #### MG, SCAN CBC, BMP ####[address] [address] USALymphocytes (Bld) [#/Vol]2.4 10*3/uLNormal 1.00-4.8The [facility] Physician GroupComment on above:Performed By: #### MG, SCAN CBC, BMP ####[place] [address] USALymphocytes/100 WBC (Bld)34.8 %Normal.The [facility] Comment on above:Performed By: #### MG, SCAN CBC, BMP ####[place] [id number] [facility] (RBC) [Entitic mass]31.7 nqZdzzkv45.7-34.3The [facility] Physician GroupComment on above:Performed By: #### MG, SCAN CBC, BMP ####[place] [id number] [facility]V (RBC) [Entitic vol]93.3 tCYyrdlt57-696Zqr [facility] Physician GroupComment on above:Performed By: #### MG, SCAN CBC, BMP ####[place] [address] USAMean Corpuscular HGB Conc34.0 g/qKNrmkcm00.0-35.0The [facility] Physician GroupComment on above:Performed By: #### MG, SCAN CBC, BMP ####[place] [address] USAMonocytes (Bld) [#/Vol]1.2 10*3/uLHigh 0.0-0.8The [facility] Physician GroupComment on above:Performed By: #### MG, SCAN CBC, BMP ####[place] [address] USAMonocytes/100 WBC (Bld)17.1 %Normal.The [facility] Physician GroupComment on above:Performed By: #### MG, SCAN CBC, BMP ####[place] [address] USANeutrophils (Bld) [#/Vol]3.0 10*3/uL Normal1.8-7.7The [facility] Physician GroupComment on above:Performed By: #### MG, SCAN CBC, BMP ####[address] [place] [address] USANeutrophils/100 WBC (Bld)43.4 %Normal.The [facility] Comment on above:Performed By: #### MG, SCAN CBC, BMP ####[address] [place] [place] [address] USANRBC%0.1 /100{WBC}Normal0-0.5 The [facility] Physician GroupComment on above:Performed By: #### MG, SCAN CBC, BMP ####[address] [address] [facility] Platelet EstimateNormalNormalNormPalm Springs General Hospital Physician GroupComment on above:Performed By: #### MG, SCAN CBC, BMP ####[address] [place] [place] [address] USAPlatelet mean volume (Bld) [Entitic vol]9.5 fLNormal6.3-10.7The [facility] Physician GroupComment on above:Performed By: #### MG, SCAN CBC, BMP ####[address] [address] USAPlatelets (Bld) [#/Vol]307 10*3/tKYfvjlk990-108Mag [facility] Physician GroupComment on above:Performed By: #### MG, SCAN CBC, BMP ####[address] [address] [facility] PoikilocytosisSlightNormPalm Springs General Hospital Physician GroupComment on above: Performed By: #### MG, SCAN CBC, BMP ####[address] [address] USARBC (Bld) [#/Vol]4.16 10*6/uLNormal3.60-5.00 The [facility] Physician GroupComment on above:Performed By: #### MG, SCAN CBC, BMP ####[address] [address] USAWBC (Bld) [#/Vol]6.9 10*3/uLNormal3.8-11.6The [facility] Physician GroupComment on above:Performed By: #### MG, SCAN CBC, BMP ####[facility] [address] [place] [address] USAWBC Auto (Bld) [#/Vol]Ordered By: Ebony Scott on 75-68-3431EVC (Bld) [#/Vol]Leukocytes [#/volume] in Blood by Automated count3.8-11.6FSCCI Hospital LimaAlanine aminotransferase [Enzymatic activity/volume] in Serum or PlasmaOrdered By: Damaso Charlton on 53-90-5359TQU [Catalytic activity/Vol]Alanine aminotransferase [Enzymatic activity/volume] in Serum or PlasmaLow7-52[facility] Albumin [Mass/volume] in Serum or Plasma by Bromocresol green (BCG) dye binding methoOrdered By: Damaso Charlton on 62-37-6773Eouhfod BCG dye [Mass/Vol]Albumin [Mass/volume] in Serum or Plasma by Bromocresol green (BCG) dye binding metho 3.5-5.7FSCCI Hospital LimaAlkaline phosphatase [Enzymatic activity/volume] in Serum or PlasmaOrdered By: Damaso Charlton on 39-67-7493GVW [Catalytic activity/Vol]Alkaline phosphatase [Enzymatic activity/volume] in Serum or YwbyygKzdp40-953WixrppcezMount St. Mary HospitalAppearance of Urine Ordered By: Damaso Charlton on 35-44-6759Nkgfiglgil (U)Urine appearanceAbnormal ClearMount St. Mary HospitalAspartate aminotransferase [Enzymatic activity/volume] in Serum or PlasmaOrdered By: Damaso Charlton on 62-66-5603BNP [Catalytic activity/Vol]Aspartate aminotransferase [Enzymatic activity/volume] in Serum or Aenmsu10-86VrunkoemuMount St. Mary HospitalBacteria [Presence] in Urine by AutomatedOrdered By: Damaso Charlton on 31-67-3100Zjwqgpeq Auto Ql (U) Bacteria [Presence] in Urine by AutomatedNone SeenMount St. Mary HospitalBasophils Auto (Bld) [#/Vol]Ordered By: Damaso Charlton on 08-20-2024 Basophils (Bld) [#/Vol]Automated basophil count0.0-0.2FSCCI Hospital LimaBasophils/100 WBC Auto (Bld)Ordered By: Damaso Charlton on 08-20-2024 Basophils/100 WBC (Bld)Automated basophil %.[facility] Bilirubin Test strip Ql (U)Ordered By: Damaso Charlton on 00-13-6879Jnzmrapdg Ql (U)Bilirubin.total [Presence] in Urine by Test stripNegativeMount St. Mary HospitalBilirubin.total [Mass/volume] in Serum or PlasmaOrdered By: Damaso Charlton on 98-59-3816Sisrtvmzh [Mass/Vol]Bilirubin.total [Mass/volume] in Serum or Plasma0.3-1.0[facility] HospitalBlood Cultureon 07-63-6607Cypglooq identified Cx Nom (Bld)NO GROWTH 5 DAYS PERFORMED BY: [facility] [address] [place] [address] PATHOLOGIST SPECIAL [employer]SEMBLIES SUPERVISOR ANNE OLGUIN M.D.NormalThe [facility] Physician GroupComment on above: Performed By: #### CUBLD ####[facility] [place] [address] USACalcium [Mass/volume] in Serum or PlasmaOrdered By: Damaso Charlton on 11-31-7412Kmotvpe [Mass/Vol]Calcium [Mass/volume] in Serum or PlasmaHigh8.6-10.3FSCCI Hospital LimaCalcium oxalate crystals [Presence] in Urine by Computer assisted methodOrdered By: Damaso Charlton on 55-46-7036Ovgonoh oxalate crystals Computer assisted Ql (U)Calcium oxalate crystals [Presence] in Urine by Computer assisted methodMount St. Mary HospitalCarbon dioxide, total [Moles/volume] in Serum or PlasmaOrdered By: Damaso Charlton on 62-43-0631UX5 [Moles/Vol]Carbon dioxide, total [Moles/volume] in Serum or Catjoz92.0-31.0[facility] Mary HospitalChloride [Moles/volume] in Serum or PlasmaOrdered By: Damaso Charlton on 45-70-4397Lpxsokyx [Moles/Vol]Chloride [Moles/volume] in Serum or Onisbx20-506MuzsvnnuuMount St. Mary HospitalColor Auto (U)Ordered By: Damaso Charlton on 06-03-2901Oupzl (U)Color of Urine by AutoYelParma Community General HospitalComprehensive Metabolic Panelon 64-53-9809Wcroung [Mass/Vol]4.4 g/dLNormal3.5-5.7The [facility] Physician GroupComment on above:Performed By: #### SCAN CBC, CMP ####[place] [place] [address] USAAlbumin/Globulin [Mass ratio] 1.8 {ratio}NormalThe [facility] Physician GroupComment on above:Performed By: #### SCAN CBC, CMP ####[address] [address] USAALP [Catalytic activity/Vol]122 U/OOmbn90-187Hbm [facility] Physician GroupComment on above:Performed By: #### SCAN CBC, CMP ####[address] [address] USAALT [Catalytic activity/Vol] U/LLow7-52The [facility] Physician GroupComment on above:Performed By: #### SCAN CBC, CMP ####[address] [address] USAAnion gap [Moles/Vol]11.9 mmol/LNormal6.0-15.0The [facility] Comment on above:Performed By: #### SCAN CBC, CMP ####[address] [address] [address] USAAST [Catalytic activity/Vol]14 U/L Fecnwd66-83Liy [facility] Physician GroupComment on above:Performed By: #### SCAN CBC, CMP ####[address] [address] USABilirubin [Mass/Vol]0.5 mg/dLNormal0.3-1.0[facility] Comment on above:Performed By: #### SCAN CBC, CMP ####[address] [address] USACalcium [Mass/Vol]11.5 mg/dLHigh 8.6-10.3The [facility] Physician GroupComment on above:Performed By: #### SCAN CBC, CMP ####[facility] [place] [address] USAChloride [Moles/Vol]103 mmol/CZfcvwr22-010Rdd [facility] Physician [facility] Comment on above:Performed By: #### SCAN CBC, CMP ####[address] [place] [address] USACO2 [Moles/Vol]24.2 mmol/LNormal 21.0-31.0The [facility] Physician [facility] HospitalComment on above:Performed By: #### SCAN CBC, CMP ####[address] [address] USACreatinine [Mass/Vol]1.43 mg/dLHigh0.60-1.20The [facility]ician [facility] Comment on above:Performed By: #### SCAN CBC, CMP ####[address] [address] USACreatinine Clr Calc Koncuanf32.07 NormalThe [facility] Physician [facility] HospitalComment on above:Result Comment: PERFORMED BY:[address] [place], [place] [phone] MEDICAL DIRECTORANNE OLGUIN M.D.Performed By: #### SCAN CBC, CMP ####[address] [address] USAEstimated GFR37.541 mL/MinNormPalm Springs [facility] Hospital Physician [facility] HospitalComment on above:Performed By: #### SCAN CBC, CMP ####[address] [address] USAGlobulin (S) [Mass/Vol]2.4 g/dLNormPalm Springs General Hospital Physician [facility] HospitalComment on above:Performed By: #### SCAN CBC, CMP ####[address] [address] USAGlucose [Mass/Vol]90 mg/dQBqisrr98-721Hbt [facility] HospitalComment on above: Result Comment: Random Glucose Reference Range is dependent on time and content of last meal. Glucose of more than 200 mg/dL in a nonstressed, ambulatory subject supports the diagnosis of Diabetes Mellitus. ADA recommended reference rangePerformed By: #### SCAN CBC, CMP ####[address] [place] [address] USAPotassium [Moles/Vol]4.1 mmol/LNormal3.5-5.1 The [facility] Physician GroupComment on above:Performed By: #### SCAN CBC, CMP ####[address] [place] [address] USAProtein [Mass/Vol]6.8 g/dLNormal6.4-8.9The [facility] Physician GroupComment on above: Performed By: #### SCAN CBC, CMP ####[address] [place] [address] USASodium [Moles/Vol]135 mmol/YWbn021-700Iyu [facility] Physician GroupComment on above:Performed By: #### SCAN CBC, CMP ####[address] [address] USAUrea nitrogen [Mass/Vol]26 mg/dLHigh7-25The [facility] Physician GroupComment on above: Performed By: #### SCAN CBC, CMP ####[address] [address] USACreatinine [Mass/volume] in Serum or PlasmaOrdered By: Damaso Charlton on 84-43-3514Clgdfxikhq [Mass/Vol]Creatinine [Mass/volume] in Serum or PlasmaHigh0.60-1.20[facility]. Mary HospitalDipstick and Microscopicon 48-16-8130Aeyrdrsoge (U)CloudyCritically abnormalClearThe [facility] Physician GroupComment on above:Order Comment: Name Collection Type:: Clean-Voided MidstreamPerformed By: #### CUU, ADDONUAPLUS ####[address] USABacteria,UrineRareNormalNone SeenThe [facility] Physician GroupComment on above:Order Comment: Name Collection Type:: Clean-Voided MidstreamPerformed By: #### CUU, ADDONUAPLUS ####[address] USABilirubin,Urine NegativeNormalNegativeBaptist Health Hospital Doral Physician GroupComment on above:Order Comment: Name Collection Type:: Clean-Voided MidstreamPerformed By: #### CUU, ADDONUAPLUS ####[address], [place] USACalcium Oxalate Crystals,Urine2+NormalThe [facility] Physician GroupComment on above:Order Comment: Name Collection Type:: Clean-Voided MidstreamPerformed By: #### CUU, ADDONUAPLUS ####[address] USAColor (U)Light-YellowNormalYellowThe [facility] Physician GroupComment on above:Order Comment: Name Collection Type:: Clean- Voided MidstreamPerformed By: #### CUU, ADDONUAPLUS ####[address] USAGlucose Ql (U)NormalNormal NormalBaptist Health Hospital Doral Physician GroupComment on above:Order Comment: Name Collection Type:: Clean-Voided MidstreamPerformed By: #### CUU, ADDONUAPLUS ####[address] USAHyaline Casts,Atgsq6-0Oaleio1-5Zeq [facility] Physician GroupComment on above:Order Comment: Name Collection Type:: Clean-Voided MidstreamPerformed By: #### CUU, ADDONUAPLUS ####[address] [id number] USAKetones Ql (U)TraceHighNegativeBaptist Health Hospital Doral Physician GroupComment on above:Order Comment: Name Collection Type:: Clean-Voided MidstreamPerformed By: #### CUU, ADDONUAPLUS ####[address] USALeukocyte esterase Test strip Ql (U)4+HighNegativeBaptist Health Hospital Doral Physician GroupComment on above:Order Comment: Name Collection Type:: Clean-Voided MidstreamPerformed By: #### CUU, ADDONUAPLUS ####[address] USAMucus,UrineRareNormal The [facility] Physician GroupComment on above:Order Comment: Name Collection Type:: Clean-Voided MidstreamResult Comment: PERFORMED BY:[address] [address] [address] [place] [place], [place] [phone] MEDICAL DIRECTORANNE OLGUIN M.D.Performed By: #### CUU, ADDONUAPLUS ####[address] [place] Nitrite,UrineNegativeNormalNegativeThe [facility] Physician GroupComment on above:Order Comment: Name Collection Type:: Clean-Voided MidstreamPerformed By: #### CUU, ADDONUAPLUS ####[address] USAOccult Blood,UrineNegativeNormalNegativeThe [facility] Physician GroupComment on above:Order Comment: Name Collection Type:: Clean- Voided MidstreamResult Comment: PERFORMED BY:[address] [address] [address] [place], [place] [phone] MEDICAL DIRECTORMOMOODY Angelica ONTIVEROSROBERTO StacyPerformed By: #### CUU, ADDONUAPLUS ####[address] USApH (U) 6.0 [pH]Normal5.0-9.0The [facility] Physician GroupComment on above:Order Comment: Name Collection Type:: Clean-Voided MidstreamPerformed By: #### CUU, ADDONUAPLUS ####[address] USAProtein,UrineTraceHighNegativeThe [facility] Physician GroupComment on above: Order Comment: Name Collection Type:: Clean-Voided MidstreamPerformed By: #### CUU, ADDONUAPLUS ####[address] [address] USARBC,Eelcn4-4Czye4-2Arc [facility] Physician GroupComment on above:Order Comment: Name Collection Type:: Clean-Voided MidstreamPerformed By: #### CUU, ADDONUAPLUS ####[address] [place], [place] USASpecificy [place],Urine1.556Jcqyvt9.001-1.030The [facility] Comment on above:Order Comment: Name Collection Type:: Clean-Voided Midstream Performed By: #### CUU, ADDONUAPLUS ####[address], [id number] USASquamous Epithelial Cell,Vjtes0-6Aaqt0-0Mjv [facility] Physician GroupComment on above:Order Comment: Name Collection Type:: Clean-Voided MidstreamPerformed By: #### CUU, ADDONUAPLUS ####[address], [place] USAUrobilinogen,UrineNormalNormal NormalThe [facility] Physician GroupComment on above:Order Comment: Name Collection Type:: Clean-Voided MidstreamPerformed By: #### CUU, ADDONUAPLUS ####[address], [place] USAWBC CLUMP, UrineFewHighNone SeenThe [facility] Physician GroupComment on above:Order Comment: Name Collection Type:: Clean-Voided MidstreamPerformed By: #### CUU, ADDONUAPLUS ####[address], [place] USAWBC,Ibrsz61-756Iape1-0Zgr [facility] Physician GroupComment on above:Order Comment: Name Collection Type:: Clean-Voided MidstreamPerformed By: #### CUU, ADDONUAPLUS ####[address], [place] USAEosinophils Auto (Bld) [#/Vol]Ordered By: Damaso Charlton on 08-20-2024 Eosinophils (Bld) [#/Vol]Automated eosinophil count0.0-0.45[facility]. Mary HospitalEosinophils/100 WBC Auto (Bld)Ordered By: Damaso Charlton on 18-00-4551Kntolaqnfpr/100 WBC (Bld)Automated eosinophil %.[facility]. Mary HospitalEpithelial cells.squamous [#/area] in Urine sediment by Automated countOrdered By: Damaso Charlton on 43-82-4941Xzqivchbnw cells.squamous Auto (Urine sed) [#/Area]Epithelial cells.squamous [#/area] in Urine sediment by Automated countHigh0-2FSCCI Hospital LimaErythrocyte distribution width Auto (RBC) [Ratio]Ordered By: Damaso Charlton on 27-01-4589Xuatntwvxns distribution width (RBC) [Ratio]Erythrocyte distribution width [Ratio] by Automated count 11.9-15.3FSCCI Hospital LimaErythrocyte morphology finding [Identifier] in BloodOrdered By: Damaso Charlton on 08-53-0408QAZ morphology finding Nom (Bld)RBC morphologyMount St. Mary HospitalErythrocytes [#/area] in Urine sediment by Automated countOrdered By: Damaso Charlton on 91-23-7870HVS Auto (Urine sed) [#/Area]Erythrocytes [#/area] in Urine sediment by Automated countHigh0-4FSCCI Hospital LimaGlobulin Calc (S) [Mass/Vol]Ordered By: Damaso Charlton on 75-17-0110Mvipymac (S) [Mass/Vol]Serum globulin measurement by calculation (mass/volume)[facility]. Mary HospitalGlucose [Mass/volume] in Serum or PlasmaOrdered By: Damaso Charlton on 37-82-1624Fknkgjg [Mass/Vol]Glucose [Mass/volume] in Serum or Guxhqa55-[address] [facility] HospitalComment on above:ADA recommended reference rangeRandom Glucose Reference Range is dependent on time and content of last meal. Glucose of more than 200 mg/dL in a nonstressed, ambulatory subject supports the diagnosisof Diabetes Mellitus.Glucose [Mass/volume] in Urine by Test stripOrdered By: Damaso Charlton on 09-90-8592Iemtdnm Test strip (U) [Mass/Vol]Glucose [Mass/volume] in Urine by Test stripNormalMount St. Mary HospitalHematocrit Auto (Bld) [Volume fraction]Ordered By: Damaso Charlton on 26-46-6685Sfuijkuqhr (Bld) [Volume fraction]Hematocrit [Volume Fraction] of Blood by Automated count34.0-46.4FSCCI Hospital LimaHemoglobin Test strip Ql (U)Ordered By: Damaso Charlton on 20-34-7868Iahvdzshyy Ql (U) Hemoglobin [Presence] in Urine by Test stripNegativeMount St. Mary HospitalHemoglobin [Mass/volume] in BloodOrdered By: Damaso Charlton on 08-20-2024 Hemoglobin (Bld) [Mass/Vol]Hemoglobin [Mass/volume] in Blood11.8-15.4FSCCI Hospital LimaHyaline casts [#/area] in Urine sediment by Automated countOrdered By: Damaso Charlton on 51-67-7555Uyzeiwz casts Auto (Urine sed) [#/Area]Hyaline casts [#/area] in Urine sediment by Automated count0-8Mount [facility]. Mary HospitalKetones Test strip Ql (U)Ordered By: Damaso Charlton on 20-71-0544Laknakb Ql (U)Ketones [Presence] in Urine by Test stripHighNegative [facility] HospitalLaboratory - Microbiology and Antimicrobial susceptibilityOrdered By: Damaso Charlton on 85-98-7743Yfdyayor identified Cx Nom (Bld)NO GROWTH [address] Mary HospitalLactate [Moles/volume] in Serum or PlasmaOrdered By: Damaso Charlton on 62-22-7306Gywnrxt [Moles/Vol]Lactate [Moles/volume] in Serum or Plasma0.5-1.9[facility] HospitalComment on above:Lactic Acid reference range has been updated to 0.5 1.9 mmol/L and the critical range of 2.0 or greater.Lactic Acidon 90-40-3829Kerqclp [Moles/Vol]0.9 mmol/LNormal0.5-1.9The [facility] Physician GroupComment on above:Result Comment: Lactic Acid reference range has been updated to 0.5 ? 1.9 mmol/L and the critical range of 2.0 or greater.PERFORMED BY:[address] [place], [place] [phone] MEDICAL DIRECTORANNE OLGUIN M.D.Performed By: #### LACTIC ####[facility] [address] [place] [address] [facility] MEDICAL CENTERLeukocyte clumps [Presence] in Urine by AutomatedOrdered By: Damaso Charlton on 24-29-8685Qyqljzmvd clumps Auto Ql (U)Leukocyte clumps [Presence] in Urine by AutomatedHighNone Seen [facility] Mary HospitalLeukocyte esterase [Presence] in Urine by Test stripOrdered By: Damaso Charlton on 44-21-3730Tfhaqmdef esterase Test strip Ql (U) Leukocyte esterase [Presence] in Urine by Test stripHighNegativeMount St. Mary HospitalLeukocytes [#/area] in Urine sediment by Automated count Ordered By: Damaso Charlton on 08-98-5630ITN Auto (Urine sed) [#/Area]Leukocytes [#/area] in Urine sediment by Automated countHigh0-4FSCCI Hospital LimaLeukocytes [#/volume] corrected for nucleated erythrocytes in Blood by Automated counOrdered By: Damaso Charlton on 21-58-1383PCM corrected for nucl RBC Auto (Bld) [#/Vol]Leukocytes [#/volume] corrected for nucleated erythrocytes in Blood by Automated coun3.8-11.6FSCCI Hospital LimaLymphocytes Auto (Bld) [#/Vol]Ordered By: Damaso Charlton on 66-94-7370Zkixbgmgqmz (Bld) [#/Vol] Lymphocytes [#/volume] in Blood by Automated count1.00-4.8[facility] Mary HospitalLymphocytes/100 WBC Auto (Bld)Ordered By: Damaso Charlton on 32-20-0334Rpyhqqbrwab/100 WBC (Bld)Lymphocytes/100 leukocytes in Blood by Automated count.[facility] HospitalH Auto (RBC) [Entitic mass] Ordered By: Damaso Charlton on 78-52-3495ESR (RBC) [Entitic mass]MCH [Entitic mass] by Automated count24.7-34.3FMarietta Osteopathic ClinicHC Auto (RBC) [Mass/Vol]Ordered By: Damaso Charlton on 02-62-3793JARK (RBC) [Mass/Vol]MCHC [Mass/volume] by Automated count32.0-35.0[facility] HospitalMCV Auto (RBC) [Entitic vol]Ordered By: Damaso Charlton on 62-77-7364SHF (RBC) [Entitic vol]MCV [Entitic volume] by Automated -443RstkxysoxMount St. Mary HospitalMonocyte distribution width [Entitic volume] in Blood by AutomatedOrdered By: Damaso Charlton on 25-86-1650Tgjsvxio distribution width Auto (Bld) [Entitic vol]Monocyte distribution width [Entitic volume] in Blood by Automated0.00-20.[address] [facility] HospitalMonocytes Auto (Bld) [#/Vol]Ordered By: Damaso Charlton on 19-86-0536Yreesdfep (Bld) [#/Vol]Automated blood monocyte countHigh 0.0-0.8[facility] HospitalMonocytes/100 WBC Auto (Bld)Ordered By: Damaso Charlton on 20-18-7653Znmparbme/100 WBC (Bld)Automated monocyte %.[facility] HospitalMucus [Presence] in Urine by AutomatedOrdered By: Damaso Charlton on 08-10-7805Bvboj Auto Ql (U)Mucus [Presence] in Urine by Automated [facility] HospitalNeutrophils Auto (Bld) [#/Vol]Ordered By: Damaso Charlton on 20-25-1303Ekcxpjcppym (Bld) [#/Vol]Neutrophils [#/volume] in Blood by Automated count1.8-7.7FSCCI Hospital LimaNeutrophils/100 WBC Auto (Bld)Ordered By: aDmaso Charlton on 69-82-4605Eoqmfolzhlz/100 WBC (Bld) Automated neutrophil %.[facility] Mary HospitalNitrite Test strip Ql (U)Ordered By: Damaso Charlton on 67-93-8585Lxqkenj Ql (U)Nitrite [Presence] in Urine by Test stripNegativeMount St. Mary HospitalNo Panel Information Ordered By: Damaso Charlton on 32-27-1178Hbltuedxj GFR (CKD-EPI)37.541 mL/Min [facility] HospitalPharmacy Creatinine Clearance (Chem25.[address] [facility] HospitalNucleated erythrocytes [Presence] in Blood by Automated countOrdered By: Damaso Charlton on 83-67-9932Usbokmnlh RBC Auto Ql (Bld) Nucleated erythrocytes [Presence] in Blood by Automated count0-0.5FSCCI Hospital LimaPlatelet adequacy [Presence] in Blood by Light microscopy Ordered By: Damaso Charlton on 01-00-3499Ouvjacndy LM Ql (Bld)Platelet adequacy [Presence] in Blood by Light microscopyNormalMount St. Mary Hospital Platelet mean volume Auto (Bld) [Entitic vol]Ordered By: Damaso Charlton on 37-58-8291Fsfqbteu mean volume (Bld) [Entitic vol]Platelet mean volume [Entitic volume] in Blood by Automated count6.3-10.7FSCCI Hospital Lima Platelet morphology finding [Identifier] in BloodOrdered By: Damaso Charlton on 38-95-3221Xhuakqdr morphology finding Nom (Bld)Platelet morphology finding [Identifier] in BloodMount St. Mary HospitalPlatelets Auto (Bld) [#/Vol]Ordered By: Damaso Charlton on 43-83-1644Atjcpmcwu (Bld) [#/Vol]Platelets [#/volume] in Blood by Automated cetbe290-998BgcmxbejmMount St. Mary Hospital Platelets Large [Presence] in Blood by Light microscopyOrdered By: Damaso Charlton on 11-85-9877Wrkrcicym Large LM Ql (Bld)Platelets Large [Presence] in Blood by Light microscopyMount St. Mary HospitalPotassium [Moles/volume] in Serum or PlasmaOrdered By: Damaso Charlton on 73-23-5126Qrbchynkf [Moles/Vol] Potassium [Moles/volume] in Serum or Plasma3.5-5.1FSCCI Hospital LimaProtein Test strip (U) [Mass/Vol]Ordered By: Damaso Charlton on 08-20-2024 Protein (U) [Mass/Vol]Protein [Mass/volume] in Urine by Test stripHighNegative [facility]. Mary HospitalProtein [Mass/volume] in Serum or PlasmaOrdered By: Damaso Charlton on 32-79-0581Kwttanz [Mass/Vol]Protein [Mass/volume] in Serum or Plasma6.4-8.9[facility] Mary HospitalRBC Auto (Bld) [#/Vol]Ordered By: Damaso Charlton on 15-84-1926XFI (Bld) [#/Vol]Erythrocytes [#/volume] in Blood by Automated count3.60-5.00[facility] Hospitalcan and CBCon 65-96-1275Hkdeogryi (Bld) [#/Vol]0.1 10*3/uLNormal0.0-0.2The [facility] Physician GroupComment on above:Result Comment: PERFORMED BY:[address]GerardoRatnaNEREYDA, [place] [phone] MEDICAL DIRECTORANNE OLGUIN M.D.Performed By: #### SCAN CBC, CMP ####[address] [address] [place] Basophils/100 WBC (Bld)1.7 %Normal.The [facility] Physician GroupComment on above:Performed By: #### SCAN CBC, CMP ####[address] [address] USAEosinophils (Bld) [#/Vol]0.2 10*3/uLNormal 0.0-0.45The [facility] Physician GroupComment on above:Performed By: #### SCAN CBC, CMP ####[address] [address] USAEosinophils/100 WBC (Bld)2.1 %Normal.The [facility] Physician GroupComment on above:Performed By: #### SCAN CBC, CMP ####[address] [address] USAErythrocyte distribution width (RBC) [Ratio] 14.6 %Ylowug62.9-15.3The [facility] Physician GroupComment on above:Performed By: #### SCAN CBC, CMP ####[address] [address] USAHematocrit (Bld) [Volume fraction]38.4 %Vbbmwn24.0-46.4The [facility] Physician GroupComment on above:Performed By: #### SCAN CBC, CMP ####[address] [address] [place] Hemoglobin (Bld) [Mass/Vol]13.1 g/vAQptnis02.8-15.4[facility] Comment on above:Performed By: #### SCAN CBC, CMP ####[address] [address] USALarge PlateletsSlightNormalThe [facility] Physician GroupComment on above:Result Comment: PERFORMED BY:[address] [place], [place] [phone] MEDICAL DIRECTORANNE OLGUIN M.D.Performed By: #### SCAN CBC, CMP ####[address] [address] [place] Lymphocytes (Bld) [#/Vol]2.7 10*3/uLNormal1.00-4.8[facility] Comment on above:Performed By: #### SCAN CBC, CMP ####[address] [address] USALymphocytes/100 WBC (Bld)34.8 %Normal .The [facility] Physician GroupComment on above:Performed By: #### SCAN CBC, CMP ####[address] [address] USAMCH (RBC) [Entitic mass]31.4 mfNgqrxe44.7-34.3The [facility] Physician GroupComment on above:Performed By: #### SCAN CBC, CMP ####[address] [address] USAMCV (RBC) [Entitic vol]92.2 nJVgjmlf88-409Pkt [facility] Physician GroupComment on above:Performed By: #### SCAN CBC, CMP ####[address] [address] USAMean Corpuscular HGB Conc34.1 g/oLQonrss84.0-35.0The [facility] Physician GroupComment on above:Performed By: #### SCAN CBC, CMP ####[address] [address] USAMonocytes (Bld) [#/Vol]1.0 10*3/uLHigh0.0-0.8 The [facility] Physician GroupComment on above:Performed By: #### SCAN CBC, CMP ####[place] [id number] [place] Monocytes/100 WBC (Bld)15.03 %Normal0.00-20.00[facility] Physician [facility] Comment on above:Performed By: #### SCAN CBC, CMP ####[place] [id number] USAMonocytes/100 WBC (Bld)13.1 %Normal. The [facility] Physician GroupComment on above:Performed By: #### SCAN CBC, CMP ####[place] [id number] [place] Neutrophils (Bld) [#/Vol]3.8 10*3/uLNormal1.8-7.7The [facility] Comment on above:Performed By: #### SCAN CBC, CMP ####[place] [id number] USANeutrophils/100 WBC (Bld)48.3 %Normal .The [facility] Physician GroupComment on above:Performed By: #### SCAN CBC, CMP ####[place] [id number] USANRBC% 0.2 /100{WBC}Normal0-0.5The [facility] Physician GroupComment on above:Performed By: #### SCAN CBC, CMP ####[place] [id number] USAPlatelet EstimateNormalNormalNormalThe [facility] Physician GroupComment on above:Performed By: #### SCAN CBC, CMP ####[place] [id number] USAPlatelet mean volume (Bld) [Entitic vol]9.4 fLNormal6.3-10.7The [facility] Physician GroupComment on above:Performed By: #### SCAN CBC, CMP ####[place] [id number] USAPlatelets (Bld) [#/Vol]314 10*3/uLNormal 150-450The [facility] Physician GroupComment on above:Performed By: #### SCAN CBC, CMP ####[facility] [address] [place] [id number] USARBC (Bld) [#/Vol]4.16 10*6/uLNormal3.60-5.00[facility] Comment on above:Performed By: #### SCAN CBC, CMP ####[facility] [address] [place], [place] [address] USAWBC (Bld) [#/Vol]7.9 10*3/uLNormal 3.8-11.6The [facility] Physician GroupComment on above:Performed By: #### SCAN CBC, CMP ####[place] [address] [place] [id number] USASerum or plasma albumin/globulin mass ratioOrdered By: Damaso Charlton on 10-15-8031Jurbqkw/Globulin [Mass ratio]Serum or plasma albumin/globulin mass ratioMiami Valley Hospitalerum or plasma anion gap determination Ordered By: Damaso Charlton on 79-54-8702Vwwtm gap [Moles/Vol]Serum or plasma anion gap determination6.0-15.0[facility] Valley Hospitalodium [Moles/volume] in Serum or PlasmaOrdered By: Damaso Charlton on 64-67-5149Fneltp [Moles/Vol] Sodium [Moles/volume] in Serum or WwkapoWuz283-548HjcxrmrksMiami Valley Hospitalpecific gravity Test strip (U) [Rel density]Ordered By: Damaso Charlton on 48-86-1900Nueogcpa gravity (U) [Rel density]Specific gravity of Urine by Test strip1.001-1.030[facility] Mary HospitalUrea nitrogen [Mass/volume] in Serum or PlasmaOrdered By: Damaso Charlton on 49-05-9141Ebzq nitrogen [Mass/Vol] Urea nitrogen [Mass/volume] in Serum or PlasmaHigh7-25[facility]. Mary HospitalUrine Cultureon 47-20-6627Yyqmtayi identified Cx Nom (U)NormalThe [facility] Physician GroupComment on above:Performed By: #### CUU, ADDONUAPLUS ####[address] [place], [place] USAUrine cultureOrdered By: Damaso Charlton on 16-52-0490Tiussawh identified Cx Nom (U) AbnormalMount St. Mary HospitalUrobilinogen Test strip (U) [Mass/Vol] Ordered By: Damaso Charlton on 54-10-6694Aramejyzhsjj (U) [Mass/Vol]Urobilinogen [Mass/volume] in Urine by Test stripNormalMount St. Mary HospitalWBC Auto (Bld) [#/Vol]Ordered By: Damaso Charlton on 80-52-9129ROK (Bld) [#/Vol] Leukocytes [#/volume] in Blood by Automated count3.8-11.6FSCCI Hospital LimaX-ray reportOrdered By: Andrew Henson on 70-87-9382Wbfov report [facility] Main [place] [address] [place] [address] XRay Report Signed Patient: Judith Land MR#: [id number] : 1945 Acct:[id number] Age/Sex: 79 / F ADM Date: 5 Loc: ER Room: Type: [place] [facility] Attending Dr: Copies to: Damaso Charlton [...] Andrew Henson M.D.08/20/2024 9:48 PM Dictation Location: [place] [address] Transcribed By: [facility] 08/20/242147 Dictated By: Andrew Henson DO 08/20/242147 Signed By: 08/20/242147 [facility] HospitalXR chest 2V*on 93-00-8079XH chest 2V*NormalThe [facility] Physician GrouppH Test strip (U)Ordered By: Damaso Charlton on 08-20-2024 pH (U)pH of Urine by Test strip5.0-9.0[facility] HospitalMain OR Intraoperative Recordon 43-30-7138Bknj OR Intraoperative RecordMain OR Intraoperative Record IntraOp Document Type FT Summary Primary Physician: Supa Owen DO Finalized Date/Time: 08/14/24 07:53:51 Pt. Name: EMERYJUDITH/Sex: 1945 Female Med Rec #: [id number] Physician: Supa Owen DO Financial #: [id number] Pt. Type: A [facility] Admit/Disch: 08/12/24 07:26:35 - 08/12/24 12:30:00 Institution: [...] WRIST FRACTURE ORIF(Right) ORIF(Right) ORIF(Right) Comments DR. DIETRCIH SUPERVISING ROOM ASSIST Last Modified By: Vic SAM, Eli Ho RN, Eli Bryson RN 08/12/24 10:10:00 08/12/24 10:10:00 08/12/24 10:10:00 Entry 4 Entry 5 Case Attendee Eli Ho RN, Sydney A Role Performed Digital Operations Analyst - Primary Scrub - Primary Time In 08/12/24 08:48:00 08/12/24 08:48:00 Time Out 08/12/24 10:06:00 08/12/24 10:06:00 Procedure WRIST FRACTURE WRIST FRACTURE ORIF(Right) ORIF(Right) Comments Last Modified By: Eli Ho RN, RN, Leann E 08/12/24 10:10:00 08/12/24 10:10:00 General Comments: JUAN CALVILLO NP SCRUBBED IN FOR THIS CASE. CECY LEAHYshirt closer Protocols FT Pre-Care Text: Implements protective measures [...] Given Participants Supa Owen DO, Ott RN, Leann E, Dellinger, Sydney A Time Out Complete 08/12/24 09:08:00 [...] WRIST FRACTURE Body Positi (more content not included)...[facility]37on *we will discontinue amlodipine to see if this will help with your leg swelling. *We are splitting lisinopril and hydrochlorothiazide. *We increased lisinopril to 40mg daily. Continue hydrochlorothiazide 25mg daily. *Have lab work done in 2 weeks. *Write down blood pressure readings 2 hours after BP medications.Normal [facility] HospitalOffice Visiton 08-41-0542Wjkepb-up visit [id number] Judith Land 1945 F Date Provider Department Center 08/13/2024 [facility] Family History Problem Relation Age of Onset Stroke Mother Stroke Brother Other Mother's Sister Coronary artery disease Mother's Sister Stroke Maternal Grandmother Family Status - Relation Status Age at Mother Brother Mother's Sister Maternal Grandmother Level of Service:00897 RI OFFICE/OUTPATIENT ESTABLISHED MOD MDM 30 MIN Reason for Visit and Comments: Cardiac Stress Test [489] Hyperlipidemia [182] Hypertension [113366] Edema [[id number]]NormalPeoples HospitalOperative Reporton [id number] ReportOperative Report SURGERY DATE: 08/12/2024 URBAN PLANNING TEACHER: Juan Calvillo APRN, PASTRY SOUS CHEF-C PREOPERATIVE DIAGNOSIS: Right distal radius and ulna fracture POSTOPERATIVE DIAGNOSIS: Right distal radius and ulna fracture OPERATION: Right wrist open reduction and internal fixation of the distal radius ANESTHESIA: General ANESTHESIOLOGIST: Jes ClineNGiana ESTIMATED BLOOD LOSS: None SPECIMEN: None COMPLICATIONS: [...] is obtained, the risks, complications, reasonable expectations ofthe above procedure are discussed at length. The patient is taken to the Operative Suite and placedon the operating room table in the supine position. At this point she is given a general anesthetic. A well- padded tourniquet is applied to the right arm. The hand, wrist, forearm sterilely prepped and draped in the usual surgical fashion at which time site verification process is undertaken with atime-out procedure. Mini C-arm intensification is utilized to [...] reduced and visualized with the C-arm intensifier. T he patient is then fashioned to the volar [...] bacitracin, Adaptic, sterile 4x4, sterile web roll, jeana well-padded, well-molded volar Ortho-Glass splint is applied, further dressed with web roll and an Mitchel wrap. The patient is subsequently extubated, transferred to [facility], and taken to Postanesthesia Care Unit in stable condition. She will be discharged this day. Niya Torres Dictated: 08/12/2024 [id number] Transcribed: 08/12/2024NoLicking Memorial HospitalComment on above:Result Comment: Electronically Signed By: Supa Owen DO\.br\Date and Time Signed: 08/13/24 07:21 ESTUrine Cultureon [id number] identified Cx Nom (U)Normal The [facility] Physician GroupComment on above:Performed By: #### CUU ####[facility] [id number] [place] [address] USAUrine cultureOrdered By: Kavon Sams on 91-42-5904Drdcpsgp identified Cx Nom (U) AbnormalMount St. Mary HospitalDischarge Instructionson 08-12-2024 Discharge InstructionsDischarge Instructions JUDITH LAND :1945 Visit Date:08/12/2024 Inpatient Discharge Instructions Your Care Team Admitting Physician - Supa Owen DO Referring Physician - Supa Owen DO Reason for Your Visit RIGHT WRIST FRACTURE Tests Performed XR Wrist 2 Views Right -- Results Pending -- Please visit your patient portal for your results or contact your primary care physician. This Is Your Medications List acetaminophen-hydrocodone ([place] 325 mg-5 mg oral tablet) alprazolam (alprazolam 1 mg Tab) amantadine (amantadine 100 mg Tab) amlodipine (amLODIPine 5 mg Tab) aspirin (aspirin 81 mg oral tablet) carbidopa-levodopa (carbidopa-levodopa 25 mg-100 mg ER Tab) ergocalciferol (Vitamin D) gabapentin (gabapentin 300 mg Cap) hydrochlorothiazide-lisinopril (hydrochlorothiazide-lisinopril 25 mg-20 mg Tab) pantoprazole (Pantoprazole 40 [...] ORT When: 08/25/2024 01:15 PM EDT Where: [address] [place] [address]- Medications What How Much When Instructions Next Dose Unchanged acetaminophen-hydrocodone ([place] 325 mg-5 mg oral tablet) See instructions 1 - 2 po q4-6hprn pain Dx: S52.501D Duration: 7 days Pickup at [facility]/pharmacy #[id number] Unchanged alprazolam (alprazolam 1 mg Tab) 1 [...] Once a day (in the evening) Unchanged hydrochlorothiazide-lisinopril (hydrochlorothiazide-lisinopril 25 mg- 20 mg Tab) 1 TabletsBy Mouth Every day Unchanged pantoprazole (Pantoprazole 40 [...] Tablets By Mouth Every day Pharmacy Information [facility]/pharmacy #[id number]: [address], [place] [phone] Allergies sulfa drugs (Unknown) [employer] [place], [place] [facility] OUTPATIENT SURGERY Home Care [...] with your post-operative (more content not included)... [facility] CenterComment on above:Result Comment: Electronically Signed By: Marjan SAM, Sofia Blair.andreia\Date and Time Signed: 08/12/24 10:27 EST Main OR PACU I Recordon [id number] OR PACU I RecordMain OR PACU I Record PACU Phase I Document Type FT Summary Primary Physician: Supa Owen DO Finalized Date/Time: 08/12/24 11:56:10 Pt. Name: JUDITH LAND/Sex: 1945 Female Med Rec #: [id number] Physician: Supa Owen DO Financial #: [id number] Pt. Type: A Room/Bed: [place] [address] Admit/Disch: 08/12/24 07:26:35 - Institution: Case Times [...] individualized perioperative plan of care The patient's rightto privacy is maintained The patient's value system, [...] with or improved from baseline levels established preoperativelyThe patient's cardiovascular status is consistent with or improved from baseline levels established preoperatively The patient's cardiovascular status is consistent with or improved from baseline levels established preoperatively The patient demonstrates and/or reports adequate pain control throughout the perioperative period The patient received appropriate medication(s), safely administered during the perioperativeperiod Acuity Level PACU I FT Entry 1 Start Time 08/12/24 10:08:00 Stop Time 08/12/24 10:40:00 Acuity Level Acuity Level I Last Modified By: Genesis Robetrs RN 08/12/24 10:52:33 Finalized By: Genesis Roberts RN Document Signatures Signed By: Genesis Roberts RN 08/12/24 10:52 Genesis Roberts RN 08/12/24 10:52 Genesis Roberts RN 08/12/24 11:56NoLicking Memorial HospitalMain OR PACU II Recordon [id number] OR PACU II RecordMain OR PACU II Record PACU Phase II Document Type FT Summary Primary Physician: Supa Owen DO Finalized Date/Time: 08/12/24 12:35:27 Pt. Name: JUDITH LAND/Sex: 1945 Female Med Rec #: [id number] Physician: Supa Owen DO Financial #: [id number] Pt. Type: A Room/Bed: Admit/Disch: 08/12/24 07:26:35 [...] and monitors body temperature Evaluates postoperative respiratory statusEvaluates postoperative cardiac status Evaluates postoperative neurological status [...] individualized perioperative plan of care The patient's rightto privacy is maintained The patient's value system, [...] with or improved from baseline levels established preoperativelyThe patient's cardiovascular status is consistent with or improved from baseline levels established preoperatively The patient's neurological status is consistent with or improved from baseline levels established preoperatively The patient demonstrates and/or reports adequate pain control throughout the perioperative period The patient received appropriate medication(s), safely administered during the perioperativeperiod Finalized By: Sofia Phillip RN Document Signatures Signed By: Sofia Phillip RN 08/12/24 12:35[facility] Center[facility] Preoperative Recordon 24-30-8812Riph OR Preoperative RecordMain OR Preoperative Record PreOp Document Type FT Summary Primary Physician: Supa Owen DO Finalized Date/Time: 08/12/24 09:25:02 Pt. Name: EMERYJUDITH/Sex: 1945 Female Med Rec #: [id number] Physician: Supa Owen DO Financial #: [id number] Pt. Type: A Room/Bed: [facility]/ Admit/Disch: 08/12/24 07:26:35 - Institution: Case Times [...] Signatures Signed By: Eli Ho RN 08/12/24 09:25[facility] CenterUrine Cultureon 71-18-3020Cmmiidcl identified Cx Nom (U)NormalThe [facility] Comment on above:Performed By: #### CUU ####[facility] [id number] [place] [id number] [facility] CENTERUrine cultureOrdered By: Meghan Ramachandran on 92-79-1573Qlndszoi identified Cx Nom (U)Urine cultureLake County Memorial Hospital - West Urineon 68-33-5994Qzacdfvh identified Cx Nom (U)Microbiology PROCEDURE: Urine Culture [R1] SOURCE: U CleanCatch BODY SITE: COLLECTED DATE/TIME: 08/03/2024 19:52 EST RECEIVED DATE/TIME: 08/03/2024 20:22 EST START DATE/TIME: 08/03/2024 20:22 EST FREE TEXT SOURCE: Demarco Beaver DO, DO, Kevin M. FINAL REPORTS Final Report [] Verified Date/Time: 08/05/2024 09:18 EST 2,000 cfu/ml Mixed skin contaminants Performing Locations R1: This test was performed at: [employer] [facility], [address] [place] [address], [address]- , , QbhfnfEmvuicSalem Regional Medical CenterComment on above:Performed By: #### [id number] ####[facility] [address] [place] [address] Head or Brain w/o Contraston [id number] Head or Brain w/o ContrastExam Date/Time: 08/03/2024 20:45 EST Reason for Exam: [...] William Carl MD Transcribed by: OTONIEL Technologist: ShubhamProtestant HospitalBMPon 70-54-2873Aomff gap [Moles/Vol]10 mmol/LNormal6-16[facility] Comment on above:Performed By: #### [id number] #### [facility] [address], [place] [address]Gfsxzbu [Mass/Vol]10.9 mg/dLNormal8.9-11.1[facility] CenterComment on above:Performed By: #### [id number] #### [facility] [address], [place] [address]Roqndywi [Moles/Vol]105 mmol/BIeqsux167-523TcqvoiProtestant HospitalComment on above:Performed By: #### [id number] #### [facility] [address], [place] [address]UE4 [Moles/Vol]28 mmol/TIpghtq83-68SukxhdProtestant Hospital Comment on above:Performed By: #### [id number] #### [facility] [address], [place] [address]Jwkkaxcpym [Mass/Vol]1.3 mg/dLNormal0.5-1.3FBarnesville HospitalComment on above:Performed By: #### [id number] #### [facility] [address], [place] [address]Ysdtwpg [Mass/Vol]123 mg/mLNmreio60-748ThfytaProtestant HospitalComment on above:Performed By: #### [id number] #### [facility] [address], [place] [address]Mfipoorkz [Moles/Vol]3.9 mmol/LNormal3.5-5.3FBarnesville HospitalComment on above:Performed By: #### [id number] #### [facility] [address], [place] [address]Laatcu [Moles/Vol]139 mmol/YJsyoti727-098WmsbnfProtestant HospitalComment on above:Performed By: #### [id number] #### [facility] [address], [place] [address]Uinr nitrogen [Mass/Vol]30 mg/dLHigh5-21Protestant HospitalComment on above:Performed By: #### [id number] #### [facility] [address], [place] [address]Xmre nitrogen/Creatinine [Mass ratio]23 No TfkvwKbvi34-86ByojbbProtestant HospitalComment on above:Performed By: #### [id number] #### [facility] [address], [place] [address]ZEQ w/ Auto Diffon 22-76-2228Dgccyjuas/100 WBC (Bld)1.0 %Normal 0.0-2.0Protestant HospitalComment on above:Performed By: #### [id number] #### [facility] [address], [place] [address]Rxrjvajad/Leukocytes Auto (Bld) [Pure # fraction]0.1 E9/LNormal 0.0-0.2FBarnesville HospitalComment on above:Performed By: #### [id number] #### [facility] [address] [place] [address]Iffkexcsamg (Bld) [#/Vol]0.5 E9/LNormal0.0-0.5FBarnesville HospitalComment on above:Performed By: #### [id number] #### [facility] [address] [place] [address]Sgymvjwowwk/100 WBC (Bld)6.1 %Normal0.0-8.0Protestant HospitalComment on above:Performed By: #### [id number] #### [facility] [address] [place] [address]Rgnxgxgxxqi distribution width (RBC) [Ratio]14.9 %High10.9-14.2 Protestant HospitalComment on above:Performed By: #### [id number] #### [facility] [address] [place] [address]Ridecjorik (Bld) [Volume fraction]40.4 %Oxuudo33.0-46.0Protestant HospitalComment on above:Performed By: #### [id number] #### [facility] [address] [place] [address]Pahtaualbx (Bld) [Mass/Vol]13.8 g/nCJwybiq78.0-16.0[facility] HospitalComment on above:Performed By: #### [id number] #### [facility] [address] [place] [address]Sypmpaxrtpz (Bld) [#/Vol]2.2 E9/LNormal1.0-4.0Pro[facility]ant HospitalComment on above:Performed By: #### [id number] #### [facility] [address] [place] [address]Bytqstpuiym/100 WBC (Bld)26.2 %Kqdugv72.0-50.0Pro[facility]ant HospitalComment on above:Performed By: #### [id number] #### [facility] [address] [place] [address]HMX (RBC) [Entitic mass]31.8 guDafvvb12.0-34.0[facility] HospitalComment on above:Performed By: #### [id number] #### [facility] [address] [place] [address]RKXH (RBC) [Mass/Vol]34.1 g/uYCbpbpy85.4-36.0[facility] HospitalComment on above:Performed By: #### [id number] #### [facility] [address] [place] [address]GBA (RBC) [Entitic vol]93.4 cEDlccyu48.0-100.0Pro[facility]ant HospitalComment on above:Performed By: #### [id number] #### [facility] [address] [place] [address]Wmkuobjeu (Bld) [#/Vol]0.9 E9/LNormal0.2-1.0Pro[facility]ant HospitalComment on above:Performed By: #### [id number] #### [facility] [address] [place] [address]Bxessggxpat (Bld) [#/Vol]4.6 E9/LNormal2.0-7.5FBarnesville HospitalComment on above:Performed By: #### [id number] #### [facility] [address] [place] [address]Hpmlcjkuveg/100 WBC (Bld)55.5 %Kvcrgc27.0-75.0Pro[facility]ant HospitalComment on above:Performed By: #### [id number] #### [facility] [address] [place] [address]Qncbpbcu120.0 E9/HFqyjeh713.0-500.0[facility] Comment on above:Performed By: #### [id number] #### [facility] [address], [place] [address]Rrszghhw mean volume (Bld) [Entitic vol]9.0 fLNormal6.4-10.8 [facility] HospitalComment on above:Performed By: #### [id number] #### [facility] [address], [place] [address]NRW (Bld) [#/Vol]4.3 E12/LNormal4.3-5.9Pro[facility]ant HospitalComment on above:Performed By: #### [id number] #### [facility] [address], [place] [address]YQG corrected for nucl RBC Auto (Bld) [#/Vol]8.3 E9/LNormal 4.0-11.0Pro[facility]ant HospitalComment on above:Performed By: #### [id number] #### [facility] [address], [place] [address]DSXDXOZQYUflvcls By: SYSTEM SYSTEM on 08-89-4855Usaca gap [Moles/Vol]10 mmol/LNormal6 - 16 mEq/LRemisol ChemCalcium [Mass/Vol]10.9 mg/dL Normal8.9 - 11.1 mg/dLRemisol ChemChloride [Moles/Vol]105 mmol/UWfkset529 - 111 mmol/LRemisol ChemCO2 [Moles/Vol]28 mmol/PKzwsav15 - 31 mmol/LRemisol Chem Creatinine [Mass/Vol]1.3 mg/dLNormal0.5 - 1.3 mg/dLRemisol FgwbxRGY57 mL/min/1.73 m2Low>=59mL/min/1.73 d8Vmehcyi ChemGlucose [Mass/Vol]123 mg/dLNormal 55 - 199 mg/dLRemisol ChemPotassium [Moles/Vol]3.9 mmol/LNormal3.5 - 5.3 mmol/L Remisol ChemSodium [Moles/Vol]139 mmol/VWwqzxu707 - 145 mmol/LRemisol ChemUrea nitrogen [Mass/Vol]30 mg/dLHigh5 - 21 mg/dLRemisol ChemUrea nitrogen/Creatinine [Mass ratio]23 mg/sbHeqz88 - 20Remisol ChemED Clinical Summaryon [id number] Clinical SummaryED Clinical Summary [address] [address] ED Clinical Summary Person Information Name: JUDITH LAND [place] Age: 79 Years : 1945 Sex: Female Language: American PCP: Kavon Sams MD Marital Status: Visit [...] 08/03/2024 21:56:18 08/03/2024 21:56:18 08/03/2024 21:56:18 ADDRESS: [address] [place] [id number] [facility] DOC NOTES: MEDICAL INFORMATION: Prescriptions Given: New Medications [id number], [address], [place] [id number], [phone] cephalexin (Keflex 500 mg Cap) 1 Capsules By Mouth every 12 hours for 5 Days. Refills: 0. Medications to Continue with No Changes Other Medications ciprofloxacin (Cipro 500 mg Tab) 1 Tablets By Mouth 2 times a day. Refills: 0. PATIENT EDUCATION INFORMATION: Instructions: Urinary Tract Infection, Adult Follow up: With: Address: When: Kavon Sams [facility], [place] [address] Business (1) In 3 days 08/06/2024 Comments: [...] any new or worsening symptoms. DIAGNOSIS: Acute UTINormalFisher Mendoza Medical CenterED Note-Physicianon 79-72-8980TA Note-PhysicianED Note-Physician Basic Information Time Seen: Demarco Beaver [...] daughter. They are comfortable plan for discharge home.Keflex was prescribed. First dose was given in [...] day(s), # 10 cap(s), Refills(s) 0, Pharmacy: [facility]/pharmacy #[id number], 167, cm, 08/03/24 19:04:00 EST, Height/Length Dosing, 54.2, kg, 08/03/24 19:04:00 EST,Weight Dosing Basic Metabolic Panel CBC w/ Auto [...] Kavon Sams In 3 days 08/06/2024 EST [address] [place] [address]- Business (1) Additional Instructions: Call the office [...] were prescribed medications you should discuss possible side- effects and drug interactions with your pharmacist. Call [...] tab(s), Oral, PRN amLODIPine (more content not included)...[facility] Comment on above:Result Comment: Electronically Signed By: Demarco Beaver DO\.br\Date and Time Signed: 08/03/24 22:07 IZZY Patient Summaryon [id number] Patient SummaryED Patient Summary [address] [place] [id number] Patient Discharge Instructions Person Information Name: JUDITH LAND Age: 79 Years Arrival Date: 08/03/2024 18:49:35 Discharge Diagnosis: Acute UTI Primary Care Physician: Kavon Sams MD Provider Information Primary Provider: Demarco Beaver DO Advanced Director Of Employee Development:None The exam and treatment you received in the Emergency Department were for an urgent problem and are not intended as complete care. It is important that you follow up with a doctor, nurse practitioner,or physician???s payroll administrative assistant for ongoing care. If your symptoms become worse or you do not improve asexpected and you are unable to reach your usual health care provider, you should return to the Emergency Department. We are available 24 hours a day. JUDITH LAND has been given the following list of patient education materials, prescriptions and follow-up instructions: Follow-up Instructions: With: Address: When: Kavon Fla[address] [place] [address] [place] [id number] Business (1) In 3 days 08/06/2024 Comments: [...] opioids can be used to help relieve tengbfpb-ok-nrkotq pain and are often prescribed following a [...] person???s prescription op (more content not included)... NormalProtestant HospitalExtra Blueon 63-52-3599Lpaw Collected PlasmaYes Invalid Interpretation CodeProtestant HospitalComment on above:Performed By: #### [id number] #### [facility] [address] [place], [place] [address]ZPCVGEMSBEEuapimh By: SYSTEM SYSTEM on 95-84-5762Tjnzjxvae/100 WBC (Bld)1.0 %Normal0.0 - 2.0 %Remisol HemeBasophils/Leukocytes Auto (Bld) [Pure # fraction]0.1 E9/LNormal0.0 - 0.2 E9/LRemisol HemeEosinophils (Bld) [#/Vol]0.5 E9/LNormal0.0 - 0.5 E9/LRemisol HemeEosinophils/100 WBC (Bld)6.1 %Normal0.0 - 8.0 %Remisol HemeErythrocyte distribution width (RBC) [Ratio]14.9 %High10.9 - 14.2 %Remisol HemeHematocrit (Bld) [Volume fraction]40.4 %Ebmuba65.0 - 46.0 % Remisol HemeHemoglobin (Bld) [Mass/Vol]13.8 g/pAUqmmki94.0 - 16.0 gm/dLRemisol HemeLymphocytes (Bld) [#/Vol]2.2 E9/LNormal1.0 - 4.0 E9/LRemisol Heme Lymphocytes/100 WBC (Bld)26.2 %Doiwxn77.0 - 50.0 %Remisol HemeMCH (RBC) [Entitic mass]31.8 tqQeobzg88.0 - 34.0 pgRemisol HemeMCHC (RBC) [Mass/Vol]34.1 g/dL Khtznl56.4 - 36.0 gm/dLRemisol HemeMCV (RBC) [Entitic vol]93.4 xKRgdluk72.0 - 100.0 fLRemisol HemeMonocytes (Bld) [#/Vol]0.9 E9/LNormal0.2 - 1.0 E9/LRemisol HemeMonocytes/100 WBC (Bld)11.2 %Normal4.0 - 14.0 %Remisol HemeNeutrophils (Bld) [#/Vol]4.6 E9/LNormal2.0 - 7.5 E9/LRemisol HemeNeutrophils/100 WBC (Bld)55.5 % Dlgbsf27.0 - 75.0 %Remisol JtcvCnicynvd914.0 E9/LVyvfnm846.0 - 500.0 E9/LRemisol HemePlatelet mean volume (Bld) [Entitic vol]9.0 fLNormal6.4 - 10.8 fLRemisol HemeRBC (Bld) [#/Vol]4.3 E12/LNormal4.3 - 5.9 E12/LRemisol HemeWBC corrected for nucl RBC Auto (Bld) [#/Vol]8.3 E9/LNormal4.0 - 11.0 E9/LRemisol HemeUA with Cult Rflxon 32-65-8896Qcfrcysfn Ql (U)NegativeNormalNegMount St. Mary HospitalComment on above:Performed By: #### [id number] #### [facility] [address], [place] [address]Hvbpzna (U)ClearNormalClearProtestant HospitalComment on above:Performed By: #### [id number] #### [facility] [address], [place] [address]Ktzfd (U)Light-YellowNormalYellowProtestant Hospital Comment on above:Result Comment: Microscopic readings are only performed on those samples that meet specific criteria set forth by [facility].Performed By: #### [id number] #### [facility] [address], [place] [address]Goqwbwfzgz cells.squamous Auto (Urine sed) [#/Area]0-2Invalid Interpretation CodeProtestant HospitalComment on above:Performed By: #### [id number] #### [facility] [address], [place] [address]Afrhadz Ql (U)NegativeNormalNegMount St. Mary Hospital Comment on above:Performed By: #### [id number] #### [facility] [address], [place] [address]Wtmofydlev Auto test strip (U) [Mass/Vol]2+ mg/dLAbnormal NegativeProtestant HospitalComment on above:Performed By: #### [id number] #### [facility] [address], [place] [address]Randjch Auto test strip Ql (U)NegativeNormalNegativeProtestant HospitalComment on above:Performed By: #### [id number] #### [facility] [address], [place] [address]Vussdknvz esterase Auto test strip Ql (U)75 Veronique/uLAbnormal NegativeProtestant HospitalComment on above:Performed By: #### [id number] #### [facility] [address] [place] [address]Zwevb Auto Ql (U)NegativeNormalNegMount St. Mary HospitalComment on above:Performed By: #### [id number] #### [facility] [address], [place] [address]Lvreghb Auto test strip Ql (U)NegativeNormalNegMount St. Mary HospitalComment on above:Performed By: #### [id number] #### [facility] [address] [place] [address]kZ (U)6.0 [pH]Invalid Interpretation Code5.0-9.0Protestant HospitalComment on above:Performed By: #### [id number] #### [facility] [address], [place] [address]Kwmqlkn Ql (U)NegativeNormalNegMount St. Mary Hospital Comment on above:Performed By: #### [id number] #### [facility] [address], [place] [address]EQW Ql (U)12-44Dilvqflp7-4Tolrru [facility] Medical CenterComment on above:Performed By: #### [id number] #### [facility] [address] [place] 604[address]Ethwyrug gravity (U) [Rel density]1.013Invalid Interpretation Code1.005-1.030Protestant HospitalComment on above:Performed By: #### [id number] #### [facility] [address] [place] [address] 34029Svkpltzzltzk (U) [Mass/Vol]NegativeNormalNegativeProtestant HospitalComment on above:Performed By: #### [id number] #### [facility] [address] [place] [address] [id number] Auto (Urine sed) [#/Area]3-33Wtadxufj6-7Fdvzqk [facility] CenterComment on above:Performed By: #### [id number] #### [facility] [address] [place] [address] 83194Mqie of Urine collection methodClean CatchNormalProtestant HospitalComment on above:Performed By: #### [id number] #### [facility] [address] [place] [address] 93345NXEZSDLFUSAexbsxs By: SYSTEM SYSTEM on 37-84-1191Fekjjdvrc Ql (U)NegativeNormalNegativemg/dLWEATHERFORD [facility]ION[facility] [place] UA Auto SSClarity (U)Clear (08/03/24 7:52 PM)NormalClearFVETERANS A[facility] [place] [facility] [place] Auto SSColor (U)Light-Yellow 1 (08/03/24 7:52 PM)NormalYellowWEATHERFORD REGIONAL HOSPITAL [facility] [place] UA Auto SSComment on above:Interpretive Data: Microscopic readings are only performed on those samples that meet specific criteria set forth by [facility].Epithelial cells.squamous Auto (Urine sed) [#/Area]0-2 graded/HPFInvalid Interpretation CodeFT UA Auto SSGlucose Ql (U)NegativeNormalNegativemg/dLWEATHERFORD REGIONAL [facility] [place] UA Auto SS Hemoglobin Auto test strip (U) [Mass/Vol]2+ mg/dLInvalid Interpretation Code Negativemg/dLWEATHERFORD REGIONAL [facility]OS[facility]ITAL [facility] [place] UA Auto SSKetones Auto test strip Ql (U)NegativeNormal Negativemg/dLWEATHERFORD REGIONAL [facility] [place] UA Auto SSLeukocyte esterase Auto test strip Ql (U)75 Veronique/uL Veronique/uLInvalid Interpretation CodeNegativeLeu/uLWEATHERFORD REGIONAL [facility]OSPITAL [facility] [place] UA Auto SSMucus Auto Ql (U) NegativeNormalNegativegraded/LPFFTMC UA Auto SSNitrite Auto test strip Ql (U) NegativeNormalNegativemg/dLWEATHERFORD REGIONAL [facility] [place] UA Auto SSpH (U)6.0 *NA* (08/03/24 7:52 PM)Invalid Interpretation Code5.0 - 9.0[facility] [place] UA Auto SSProtein Ql (U)NegativeNormalNegativemg/dLWEATHERFORD REGIONAL [facility] [place] UA Auto SSRBC Ql (U)31-75 graded/HPFInvalid Interpretation Code0-3graded/HPFWEATHERFORD REGIONAL [facility]OSPITAL [facility] [place] UA Auto SSSpecific gravity (U) [Rel density]1.013 *NA* (08/03/24 7:52 PM)Invalid Interpretation Code1.005 - 1.030[facility] [place] UA Auto SS Urobilinogen (U) [Mass/Vol]NegativeNormalNegativemg/dLWEATHERFORD REGIONAL [facility]OS[facility] [place] UA Auto SSWBC Auto (Urine sed) [#/Area]6-15 graded/HPFInvalid Interpretation Code0-5graded/HPFWEATHERFORD REGIONAL [facility]OS[facility] [place] UA Auto SSURINALYSISOrdered By: Gillian Seay on [id number] Spec DescClean Catch (08/03/24 7:52 PM)NormalWEATHERFORD REGIONAL HOSPITAL – [facility] UA Auto SSeGFRon 68-54-1214yJZO91 mL/min/1.73 m2Low >=59Fisher [facility] Medical CenterComment on above:Performed By: #### [id number] #### [facility] [address], [place] [address]IYRFbm 29-30-2967UHOFZkfbczupl (NREUS2) JUDITH LAND ([id number]) 1945 F Date Time Provider Department 07/30/24 VICTORIA CEDENOA NREUS2 During your visit today, we recorded the following information about you: Gabbi Ennis 07/30/2024 1:[address] Owen office phoned - patient fell an broke her ulna and will need surgery. They would like to discuss with Cherie from PD standpoint if ok for surgery. [phone] She will also fax over a generic form for completion. Can either call or complete form. Gabbi Ennis 07/30/2024 2:03 PM Signed Form received via fax. Not really anything for RN's to complete. Sent via [employer] to Cherie. Gabbi Ennis 08/05/2024 7:46 AM [...] 20 mg by mouth once daily. - lisinopril-hydrochlorothiazide 20-25 mg per tablet Take 1 [...] 09/13/2023 Encounter Status:Closed by GABBI ENNIS on [facility]/30/24[facility] Urineon [id number] identified Cx Nom (U)Microbiology PROCEDURE: Urine Culture [R1] SOURCE: U Random BODY SITE: COLLECTED DATE/TIME: 07/26/2024 17:10 EST RECEIVED DATE/TIME: 07/26/2024 18:08 EST START DATE/TIME: 07/26/2024 18:08 EST FREE TEXT SOURCE: Sae Morfin DO, DO, John FINAL REPORTS Final Report [] Verified Date/Time: 07/28/2024 10:44 EST 4,000 cfu/ml Mixed skin contaminants Performing Locations R1: This test was performed at: [facility], [address] [place] [address], [address] , [place], QfyyfmWlkhawSalem Regional Medical CenterComment on above:Performed By: #### [id number] #### [facility] [address] [place] [address] [id number] Head or Brain w/o Contraston [id number] Head or Brain w/o ContrastExam Date/Time: 07/26/2024 16:32 EST Reason for Exam: [...] Jori Colon MD Transcribed by: OTONIEL Technologist: Jose JProtestant HospitalXR Chest Single Viewon [id number] Chest Single ViewExam Date/Time: 07/26/2024 16:38 EST Reason for Exam: [...] Jori Colon MD Transcribed by: OTONIEL Technologist: Corey HospitalBMPon [id number] gap [Moles/Vol]13 mmol/LNormal6-16[facility] Comment on above:Performed By: #### [id number] #### [facility] [address], [place] [address]Zdhhxir [Mass/Vol]10.8 mg/dLNormal8.9-11.1FBarnesville HospitalComment on above:Performed By: #### [id number] #### [facility] [address], [place] [address]Yvkqumid [Moles/Vol]103 mmol/YGbznsg270-534EjbcahProtestant HospitalComment on above:Performed By: #### [id number] #### [facility] [address], [place] [address]CN2 [Moles/Vol]27 mmol/SYversl41-73PomrdaProtestant Hospital Comment on above:Performed By: #### [id number] #### [facility] [address], [place] [address]Eeufnxvnoe [Mass/Vol]1.3 mg/dLNormal0.5-1.3FBarnesville HospitalComment on above:Performed By: #### [id number] #### [facility] [address], [place] [address]Bfyfgnc [Mass/Vol]94 mg/zLUmptuz83-346VvzycoProtestant HospitalComment on above:Performed By: #### [id number] #### [facility] [address], [place] [address]Fxnhfrwre [Moles/Vol]4.7 mmol/LNormal3.5-5.3FBarnesville HospitalComment on above:Performed By: #### [id number] #### [facility] [address], [place] [address]Njvwbu [Moles/Vol]138 mmol/WLssmwm929-991FrhkukProtestant HospitalComment on above:Performed By: #### [id number] #### [facility] [address], [place] [address]Gars nitrogen [Mass/Vol]31 mg/dLHigh5-21Protestant HospitalComment on above:Performed By: #### [id number] #### [facility] [address], [place] [address]Ucln nitrogen/Creatinine [Mass ratio]24 No GncmyDvgd90-78CoyivfProtestant HospitalComment on above:Performed By: #### [id number] #### [facility] [address], [place] [address]GXQ w/ Auto Diffon 87-69-0446Bzyufcncn/100 WBC (Bld)1.0 %Normal 0.0-2.0Protestant HospitalComment on above:Performed By: #### [id number] #### [facility] [address], [place] [address]Eemobleyd/Leukocytes Auto (Bld) [Pure # fraction]0.1 E9/LNormal 0.0-0.2FBarnesville HospitalComment on above:Performed By: #### [id number] #### [facility] [address], [place] [address]Xjtebgppovx (Bld) [#/Vol]0.7 E9/LHigh0.0-0.5FBarnesville HospitalComment on above:Performed By: #### [id number] #### [facility] [address], [place] [address]Ktwkfmgxjlq/100 WBC (Bld)7.4 %Normal0.0-8.0Protestant HospitalComment on above:Performed By: #### [id number] #### [facility] [address] [place] [address] 44147Umybelpmfoq distribution width (RBC) [Ratio]15.1 %High10.9-14.2 Protestant HospitalComment on above:Performed By: #### [id number] #### [facility] [address] [place] [address]Oocairabum (Bld) [Volume fraction]41.5 %Ovdezp06.0-46.0Protestant HospitalComment on above:Performed By: #### [id number] #### [facility] [address] [place] [address] 23446Priltnfiea (Bld) [Mass/Vol]14.0 g/sOYeqqwo15.0-16.0Protestant HospitalComment on above:Performed By: #### [id number] #### [facility] [address] [place] [address] 45[address]Kpkrwelmycl (Bld) [#/Vol]2.7 E9/LNormal1.0-4.0Protestant HospitalComment on above:Performed By: #### [id number] #### [facility] [address] [place] [address] 26059Wgczwemcobt/100 WBC (Bld)26.2 %Ghkqff58.0-50.0Protestant HospitalComment on above:Performed By: #### [id number] #### [facility] [address] [place] [address] 03249XCF (RBC) [Entitic mass]31.5 abZwroxx64.0-34.0Protestant HospitalComment on above:Performed By: #### [id number] #### [facility] [address] [place] [address] 55488ABRT (RBC) [Mass/Vol]33.7 g/yFKzjjbj70.4-36.0Protestant HospitalComment on above:Performed By: #### [id number] #### [facility] [address] [place] [address] 85534ZHU (RBC) [Entitic vol]93.5 uKAxdyqd51.0-100.0Protestant HospitalComment on above:Performed By: #### [id number] #### [facility] [address] [place] [address] 14254Gnwngikjc (Bld) [#/Vol]1.4 E9/LHigh0.2-1.0Protestant HospitalComment on above:Performed By: #### [id number] #### [facility] [address] [place] [address] 65287Icaqzrtulfd (Bld) [#/Vol]5.3 E9/LNormal2.0-7.5FBarnesville HospitalComment on above:Performed By: #### [id number] #### [facility] [address] [place] [address] 51236Fdypeoxgayk/100 WBC (Bld)52.0 %Skjunh49.0-75.0Protestant HospitalComment on above:Performed By: #### [id number] #### [facility] [address] [place] [address] 63799Lftxiqjr298.0 E9/AYxkoge266.0-500.0[facility] Comment on above:Performed By: #### [id number] #### [facility] [address] [place] [address] 06425Lqbjbeyn mean volume (Bld) [Entitic vol]9.5 fLNormal6.4-10.8 Protestant HospitalComment on above:Performed By: #### [id number] #### [facility] [address] [place] [address] 12277UZL (Bld) [#/Vol]4.4 E12/LNormal4.3-5.9Protestant HospitalComment on above:Performed By: #### [id number] #### [facility] [address], [place] [address]MYV corrected for nucl RBC Auto (Bld) [#/Vol]10.2 E9/LNormal 4.0-11.0FishWestern Maryland Hospital CenterComment on above:Result Comment: Peripheral smear review performed.Performed By: #### [id number] #### [facility] [address], [place] [address]GEBZHBHRPJouamax By: SYSTEM SYSTEM on 36-47-2508Mbhcmsvz HS 10.10 pg/tGLznqgk00.10 - 27.10 pg/mLRemisol ChemComment on above:Interpretive Data: The 95% CI (Confidence Interval) PPV (Positive Predictive Value) for myocardial infarction in females is 38 pg/mL, in males 51 pg/mL. The results should be used in conjunction withclinical conditions of myocardial infarction. (Access High Sensitivity Troponin I Instructions For Use, [place], January 2018)Anion gap [Moles/Vol]13 mmol/LNormal6 - 16 mEq/LRemisol ChemCalcium [Mass/Vol]10.8 mg/dLNormal8.9 - 11.1 mg/dLRemisol ChemChloride [Moles/Vol]103 mmol/PGtpmxh710 - 111 mmol/LRemisol ChemCO2 [Moles/Vol]27 mmol/MTzhbpn15 - 31 mmol/LRemisol ChemCreatinine [Mass/Vol]1.3 mg/dLNormal0.5 - 1.3 mg/dLRemisol ZdrdvFML31 mL/min/1.73 m2Low>=59mL/min/1.73 f5Rdmwjmh ChemGlucose [Mass/Vol]94 mg/tAPaunwn86 - 199 mg/dLRemisol ChemPotassium [Moles/Vol]4.7 mmol/LNormal3.5 - 5.3 mmol/LRemisol ChemSodium [Moles/Vol]138 mmol/VSexlqo578 - 145 mmol/LRemisol ChemTroponin HS11.10 pg/xXYtftqj11.10 - 27.10 pg/mLRemisol ChemComment on above: Interpretive Data: The 95% CI (Confidence Interval) PPV (Positive Predictive Value) for myocardial infarction in females is 38 pg/mL, in males 51 pg/mL. The results should be used in conjunction withclinical conditions of myocardial infarction. (Access High Sensitivity Troponin I Instructions For Use, Jacques [place], January 2018)Urea nitrogen [Mass/Vol]31 mg/dLHigh5 - 21 mg/dLRemisol ChemUrea nitrogen/Creatinine [Mass ratio]24 mg/hmQusb60 - 20Remisol ChemED Clinical Summaryon [id number] Clinical SummaryED Clinical Summary [place] [address] ED Clinical Summary Person Information Name: JUDITH LAND [facility] Age: 79 Years : 1945 Sex: Female Language: American PCP: Kavon Sams MD Marital Status: Visit [...] 07/26/2024 18:34:16 07/26/2024 18:34:16 07/26/2024 18:34:16 ADDRESS: [address] [place] [id number] PHYS DOC NOTES: MEDICAL INFORMATION: Prescriptions Given: Medications to Continue Taking That Have Changed [id number], [address], [place] [id number], [phone] START: ciprofloxacin (Cipro 500 mg Tab) 1 Tablets By Mouth 2 times a day. Refills: 0. Other Medications START: ciprofloxacin (Cipro 500 mg Tab) Take 1 tab day prior to procedure and 1 tab day of procdure- afterwards. Refills: 0. Medications to Continue with [...] tablet) 1 Tablets By Mouth every day. hydrochlorothiazide-lisinopril (hydrochlorothiazide-lisinopril 25 mg-20 mg Tab) 2 Tablets By [...] Follow up: With: Address: When: Kavon Sams [address] [place] [address], [place] [address] Business (1) In 3 days DIAGNOSIS: Altered mental status; Dehydration; UTI (urinary tract infection)[facility] CenterED Note-Physicianon [id number] Note-PhysicianED Note-Physician Basic Information Time Seen: Sae Morfin DO 07/26/2024 16:02 Chief Complaint Pt had fall on . has had speech and trouble getting words out since then. declining. parkinsons History of Present Illness 79 female presents emergency department for evaluation of altered mental status. Family states thatover the last 3 days the patient has [...] had a urinalysis dropped off at the [facility] on but they do not have [...] have evidence of UTI I did review priorcultures it does look like she had Pseudomonas [...] BID, # 14 tab(s), Refills(s) 0, Pharmacy: [id number], 167, cm, 07/26/24 16:07:00 EST, [...] Information Kavon Sams In 3 days [address] [facility] [place] [address]- Business (1) Additional Instructions: Problem List/Past Medical [...] 1 mg Tab, 1 (more content not included)...[facility] CenterComment on above:Result Comment: Electronically Signed By: Sae Morfin DO\.br\Date and Time Signed: 07/26/24 18:26ESTED Patient Education Noteon [id number] Patient Education NoteED Patient Education NoteNormMemorial Health System Sel[facility] Hospital CenterED Patient Summaryon [id number] Patient SummaryED Patient Summary [address] [address] Patient Discharge Instructions Person Information Name: JUDITH LAND Age: 79 Years Arrival Date: 07/26/2024 15:51:40 Discharge Diagnosis: Altered mental status; Dehydration; UTI (urinary tract infection) Primary Care Physician: Kavon Sams MD Provider Information Primary Provider: Sae Morfin DO Advanced Director Of Employee Development:None The exam and treatment you received in the Emergency Department were for an urgent problem and are not intended as complete care. It is important that you follow up with a doctor, nurse practitioner,or physician???s payroll administrative assistant for ongoing care. If your symptoms become worse or you do not improve asexpected and you are unable to reach your usual health care provider, you should return to the Emergency Department. We are available 24 hours a day. JUDITH LAND has been given the following list of patient education materials, prescriptions and follow-up instructions: Follow-up Instructions: With: Address: When: Kavon Sams [address] [facility] [place] [address] (1) In 3 days In the event that this physician does not participate in your insurance network, please consult with your insurance company to find a nearby participating provider. Patient Education Materials: A MESSAGE TO ALL PATIENTS REGARDING OPIOIDS PRESCRIPTION OPIOIDS: WHAT YOU NEED TO KNOW Prescription opioids can be used to help relieve mplzaate-fu-xmjxcc pain and are often prescribed following a [...] guidance from the Food and Drug Administration (www.fda.gov/Drugs/ResourcesForYou). ??? Visit www.cdc.gov/drugoverdose to learn about the risks of opioids abuse and overdose. ??? If you believe you may be struggling with addiction, tell your health vision care associate and a (more content not included)...[facility] Medical CenterHEMATOLOGYOrdered By: SYSTEM SYSTEM on 69-54-6469Avthlrgyl/100 WBC (Bld) 1.0 %Normal0.0 - 2.0 %Remisol HemeBasophils/Leukocytes Auto (Bld) [Pure # fraction]0.1 E9/LNormal0.0 - 0.2 E9/LRemisol HemeEosinophils (Bld) [#/Vol]0.7 E9/LHigh0.0 - 0.5 E9/LRemisol HemeEosinophils/100 WBC (Bld)7.4 %Normal0.0 - 8.0 %Remisol HemeErythrocyte distribution width (RBC) [Ratio]15.1 %High10.9 - 14.2 % Remisol HemeHematocrit (Bld) [Volume fraction]41.5 %Obgiyr56.0 - 46.0 %Remisol HemeHemoglobin (Bld) [Mass/Vol]14.0 g/kRHquvsu23.0 - 16.0 gm/dLRemisol Heme Lymphocytes (Bld) [#/Vol]2.7 E9/LNormal1.0 - 4.0 E9/LRemisol HemeLymphocytes/100 WBC (Bld)26.2 %Qkjwpx04.0 - 50.0 %Remisol HemeMCH (RBC) [Entitic mass]31.5 pg Fxkgtz62.0 - 34.0 pgRemisol HemeMCHC (RBC) [Mass/Vol]33.7 g/xHVvnjst58.4 - 36.0 gm/dLRemisol HemeMCV (RBC) [Entitic vol]93.5 vSWnibly63.0 - 100.0 fLRemisol Heme Monocytes (Bld) [#/Vol]1.4 E9/LHigh0.2 - 1.0 E9/LRemisol HemeMonocytes/100 WBC (Bld)13.4 %Normal4.0 - 14.0 %Remisol HemeNeutrophils (Bld) [#/Vol]5.3 E9/LNormal 2.0 - 7.5 E9/LRemisol HemeNeutrophils/100 WBC (Bld)52.0 %Gbiurp01.0 - 75.0 % Remisol QqfaSbaomspp356.0 E9/UEuvvzi118.0 - 500.0 E9/LRemisol HemePlatelet mean volume (Bld) [Entitic vol]9.5 fLNormal6.4 - 10.8 fLRemisol HemeRBC (Bld) [#/Vol] 4.4 E12/LNormal4.3 - 5.9 E12/LRemisol HemeWBC corrected for nucl RBC Auto (Bld) [#/Vol]10.2 E9/LNormal4.0 - 11.0 E9/LRemisol HemeComment on above:Result Comment: Peripheral smear review performed.Troponin 0 Hr.on 11-71-8761Qhqwkolz HS11.10 pg/tRLtdber23.10-27.10Protestant HospitalComment on above:Result Comment: The 95% CI (Confidence Interval) PPV (Positive Predictive Value) for myocardial infarction in females is 38 pg/mL, in males 51 pg/mL. The results should be used in conjunction with clinical conditions of myocardial infarction. (Access High Sensitivity Troponin I Instructions For Use, [place], January 2018)Performed By: #### [id number] #### [facility] [address], [place] [address]Dnfckxub 1 Hr.on 89-89-4146Sdypztqa HS10.10 pg/mLNormal 10.10-27.10Protestant HospitalComment on above:Order Comment: 1709Result Comment: The 95% CI (Confidence Interval) PPV (Positive Predictive Value) for myocardial infarction in females is 38 pg/mL, in males 51 pg/mL. The results should be used in conjunction with clinical conditions of myocardial infarction. (Access High Sensitivity Troponin I Instructions For Use, [place], January 2018)Performed By: #### [id number] #### [facility] [address], [place] [address]AI with Cult Rflxon 40-84-9696Fmkiaccdc Ql (U)NegativeNormal NegativeProtestant HospitalComment on above:Performed By: #### [id number] #### [facility] [address], [place] [address]Ohbwktm (U)ClearNormalClearProtestant HospitalComment on above:Performed By: #### [id number] #### [facility] [address], [place] [address]Ntczi (U)Light-YellowNormalYellowProtestant Hospital Comment on above:Result Comment: Microscopic readings are only performed on those samples that meet specific criteria set forth by [facility].Performed By: #### [id number] #### [facility] [address], [place] [address]Mivedlhwar cells.squamous Auto (Urine sed) [#/Area]0-2Invalid Interpretation CodeProtestant HospitalComment on above:Performed By: #### [id number] #### [facility] [address], [place] [address]Arrcxta Ql (U)NegativeNormalNegativeProtestant Hospital Comment on above:Performed By: #### [id number] #### [facility] [address], [place] [address]Zpmfgjbtkf Auto test strip (U) [Mass/Vol]3+ mg/dLAbnormal NegativeProtestant HospitalComment on above:Performed By: #### [id number] #### [facility] [address] [place] [address]Rhkmkfh Auto test strip Ql (U)NegativeNormalNegativeProtestant HospitalComment on above:Performed By: #### [id number] #### [facility] [address], [place] [address]Pxlfgpohx esterase Auto test strip Ql (U)75 Veronique/uLAbnormal NegativeProtestant HospitalComment on above:Performed By: #### [id number] #### [facility] [address] [place] [address]Gudym Auto Ql (U)NegativeNormalNegMount St. Mary HospitalComment on above:Performed By: #### [id number] #### [facility] [address] [place] [address]Psquzic Auto test strip Ql (U)NegativeNormalNegMount St. Mary HospitalComment on above:Performed By: #### [id number] #### [facility] [address] [place] [address]17[address]kI (U)6.5 [pH]Invalid Interpretation Code5.0-9.0Protestant HospitalComment on above:Performed By: #### [id number] #### [facility] [address], [place] [address]Ibrcdqe Ql (U)NegativeNormalNegMount St. Mary Hospital Comment on above:Performed By: #### [id number] #### [facility] [address], [place] [address]TKA Ql (U)9-79Fpgvngpc5-1Hbeqha [facility] Medical CenterComment on above:Performed By: #### [id number] #### [facility] [address], [place] [address]Pjhwyovy gravity (U) [Rel density]1.010Invalid Interpretation Code1.005-1.030Protestant HospitalComment on above:Performed By: #### [id number] #### [facility] [address] [place] [address]Koxpelvhvunj (U) [Mass/Vol]NegativeNormalNegativeProtestant HospitalComment on above:Performed By: #### [id number] #### [facility] [address] [place] [address]KMY Auto (Urine sed) [#/Area]7-2Emxrst6-9Gvqoao [facility] Medical CenterComment on above:Performed By: #### [id number] #### [facility] [address] [place] [address]Lyba of Urine collection methodClean CatchNormalProtestant HospitalComment on above:Performed By: #### [id number] #### [facility] [address] [place] [address]OGBECLUOXFDrcbwot By: SYSTEM SYSTEM on 73-75-0845Dttztfhxk Ql (U)NegativeNormalNegativemg/dLWEATHERFORD REGIONAL [facility]OSPITAL – [place] UA Auto SSClarity (U)Clear (07/26/24 5:10 PM)NormalClearFVETERANS AFFAIRS [facility] [place] [facility] [place] UA Auto SSColor (U)Light-Yellow 1 (07/26/24 5:10 PM)NormalYellowWEATHERFORD REGIONAL HOSPITAL – [place] UA Auto SSComment on above:Interpretive Data: Microscopic readings are only performed on those samples that meet specific criteria set forth by [facility].Epithelial cells.squamous Auto (Urine sed) [#/Area]0-2 graded/HPFInvalid Interpretation CodeFT UA Auto SSGlucose Ql (U)NegativeNormalNegativemg/dLWEATHERFORD REGIONAL HOSPITAL – [place] UA Auto SS Hemoglobin Auto test strip (U) [Mass/Vol]3+ mg/dLInvalid Interpretation Code Negativemg/dLFT UA Auto SSKetones Auto test strip Ql (U)NegativeNormal Negativemg/dLWEATHERFORD REGIONAL HOSPITAL – [place] UA Auto SSLeukocyte esterase Auto test strip Ql (U)75 Veronique/uL Veronique/uLInvalid Interpretation CodeNegativeLeu/uLWEATHERFORD REGIONAL HOSPITAL – [place] UA Auto SSMucus Auto Ql (U) NegativeNormalNegativegraded/LPFFTMC UA Auto SSNitrite Auto test strip Ql (U) NegativeNormalNegativemg/dLWEATHERFORD REGIONAL HOSPITAL – [place] UA Auto SSpH (U)6.5 *NA* (07/26/24 5:10 PM)Invalid Interpretation Code5.0 - 9.0[facility] [place] UA Auto SSProtein Ql (U)NegativeNormalNegativemg/dLWEATHERFORD REGIONAL HOSPITAL – [facility] UA Auto SSRBC Ql (U)4-20 graded/HPFInvalid Interpretation Code0-3graded/HPFWEATHERFORD REGIONAL [facility] UA Auto SSSpecific gravity (U) [Rel density]1.010 *NA* (07/26/24 5:10 PM)Invalid Interpretation Code1.005 - 1.030[facility] Auto SS Urobilinogen (U) [Mass/Vol]NegativeNormalNegativemg/dLWEATHERFORD REGIONAL [facility] [place] [facility] Auto SSWBC Auto (Urine sed) [#/Area]0-5 graded/HPFNormal0-5graded/HPFWEATHERFORD [facility]AL [facility] [place] [facility] Auto SSURINALYSIS Ordered By: Sae Morfin on 28-31-4596XY Spec DescClean Catch (07/26/24 5:10 PM)NormalWEATHERFORD [facility] [place] [facility] Auto SS eGFRon 62-13-8835hCTD21 mL/min/1.73 m2Low>=59Fisher [facility] Medical CenterComment on above:Performed By: #### [id number] #### [facility] [address], [place] [address]IX Head or Brain w/o Contraston [id number] Head or Brain w/o ContrastExam Date/Time: 07/24/2024 20:09 EST Reason for Exam: [...] Jori Colon MD Transcribed by: OTONIEL Technologist: [facility] Spine Cervical w/o Contraston 12-20-9214MS Spine Cervical w/o ContrastExam Date/Time: 07/24/2024 20:09 EST Reason for Exam: [...] Jori Colon MD Transcribed by: OTONIEL Technologist: NatachaUpper Valley Medical CenterXR Wrist 2 Views Righton [id number] Wrist 2 Views RightExam Date/Time: 07/24/2024 20:16 EST Reason for Exam: [...] Lauro Moya MD Transcribed by: OTONIEL Technologist: [facility] Clinical Summaryon [id number] Clinical SummaryED Clinical Summary [place] [address] ED Clinical Summary Person Information Name: JUDITH LAND Alecia/[facility] Age: 79 Years : 1945 Sex: Female Language: American PCP: Kavon Sams MD Marital Status: Visit [...] 07/24/2024 21:56:11 07/24/2024 21:56:11 07/24/2024 21:56:11 ADDRESS: [address] [place] [id number] PHYS DOC NOTES: MEDICAL INFORMATION: Prescriptions Given: New Medications [id number], [address], [place] [id number], [phone] acetaminophen-oxycodone (Percocet 5 mg-325 mg oral tablet) [...] day of procdure - afterwards. Refills: 0. hydrochlorothiazide-lisinopril (hydrochlorothiazide-lisinopril 25 mg-20 mg Tab) 2 Tablets By [...] up: With: Address: When: Kavon Sams [address] [facility] [place] [address] Business (1) In 3 days [...] worsening symptoms. With: Address: When: Supa Owen [address] [place], [place] [id number] [employer] (1) In 3 days 07/27/2024 Comments: Call office tomorrow to arrange for short-term follow-up for your distal radius fracture. Take pain medication as prescribed. DIAGNOSIS: Accidental fall; Distal radius fracture; Wrist injuryYarelyDayton VA Medical Center [facility] Medical CenterED Note-Physicianon [id number] Note-PhysicianED Note-Physician Basic Information Time Seen: Demarco Beaver [...] the nares or septal hematoma; Tympanic Membranes intact,no hemotympanum or drainage Neck: Normal inspection; no [...] before placement. Right sugar-tong custom molded fiberglass splint.Limb is neurovascularly intact after placement. Demarco Beaver DO Medical Decision Making 79-year-old female to the emergency department chief complaint of right wrist pain. Vital stable, the patient is afebrile. She did have mechanical fall. Given her advanced age CT imaging of the head and neck are ordered. No other traumatic injuries were identified. X-ray imaging of the right wrist.Percocet for pain CT head: No acute CT [...] Owen In 3 days 07/27/2024 EST [address] [place] [address]- Business(1) Additional Instructions: Call office tomorrow to arrange for short-term follow- up for your distal radius fracture. Take pain medication as prescribed. Patient Education Colles Fracture Cast or Splint Care, Adult Problem List/Past Medical History Ongoing H/O emphysema High cholesterol Hydronephrosis, right Hypertension Kidney disease Ureteropelvic junction (UPJ) obstruction, right Historical COPD - Chronic obstructive pulm (more content not included)...[facility] CenterComment on above:Result Comment: Electronically Signed By: Demarco Beaver DO\.br\Date and Time Signed: 07/24/24 21:44 IZZY Patient Summaryon [id number] Patient SummaryED Patient Summary [facility] [address] [place], [place] [address] Patient Discharge Instructions Person Information Name: JUDITH LAND Age: 79 Years Arrival Date: 07/24/2024 18:45:15 Discharge Diagnosis: Accidental fall; Distal radius fracture; Wrist injury Primary Care Physician: Kavon Sams MD Provider Information Primary Provider: Demarco Beaver DO Advanced Director Of Employee Development:None The exam and treatment you received in the Emergency Department were for an urgent problem and are not intended as complete care. It is important that you follow up with a doctor, nurse practitioner,or physician???s payroll administrative assistant for ongoing care. If your symptoms become worse or you do not improve asexpected and you are unable to reach your usual health care provider, you should return to the Emergency Department. We are available 24 hours a day. JUDITH LAND has been given the following list of patient education materials, prescriptions and follow-up instructions: Follow-up Instructions: With: Address: When: Kavon Sams [address] [facility] [place] [id number] [employer] (1) In 3 days 07/27/2024 Comments: Call [...] worsening symptoms. With: Address: When: Supa Owen [address] [place] [id number] [employer] (1) In 3 days 07/27/2024 Comments: Call [...] opioids can be used to help relieve mikcicmi-bc-vnanhn pain and are often prescribed following a [...] care provider. david russ (more content not included)...[facility] CenterPre- Arrival Noteon 82-99-1708Rqv-Arrival NotePre-Arrival Note Pre-Arrival Summary Name: , [facility] Current Date: 07/24/2024 18:52:03 EST Gender: Female Date of : Age: 79 Pre-Arrival Type: EMS ETA: 07/24/2024 19:03:00 EST Primary Care Physician: Presenting Problem: fall; r wrist deformity, hit head; thinners Pre-Arrival User: Jacquelyn Negrete RN Referring Source: Location: [place] Completion Date/Time: 07/24/2024 18:33:00 [facility] Emergency Department Pre-Hospital Report Form Vital Signs: Pre-Hospital Report: Treatment in Route: Response to Treatment: Misc. Issues:[facility] Medical CenterUrine Cultureon [id number] identified Cx Nom (U)[facility] Physician GroupComment on above: Performed By: #### CUU ####[facility] [address] [place] [address] [facility]ICAL CENTERUrine cultureOrdered By: Kavon Sams on 07-24-2024 Bacteria identified Cx Nom (U)Urine cultureMount [facility]. [facility] Bacteria identified Cx Nom (U)Urine cultureMount St. Mary HospitalCNOV on [id number] Visit (NREUS2) JUDITH LAND ([id number]) 1945 F Date Time Provider Department 07/16/24 [...] Lower Extremity 0-Normal. No (more content not included)...Normal [facility] 73-04-3943ZMQQPodrje Visit (NREUS2) JUDITH LAND ([id number]) 1945 F Date Time Provider Department 02/22/24 3:00 PM CHERIE CEDENO NREUS2 During your visit today, we recorded the following information about you: Pulse Blood pressure 92/minute 133/73 Ga Bob MA 02/22/2024 4:46 PM Signed Reason for WROTF Tablet to not get completed: Patient wishes to abort because of stress/struggling or is interrupted by their delinquency prevention officer. Cherie Cedeno PA-C 02/22/2024 4:46 PM Signed [...] that she is going to travel to [place] to see her friends, which prior to [...] as less spontaneous s (more content not included)...[facility] 70-26-4664FNBXNndzsl Visit (NREUS2) JUDITH LAND ([id number]) 1945 F Date Time Provider Department 01/14/24 2:00 PM CHERIE CEDENO NREUS2 During your visit today, we recorded the following information about you: Pulse Blood pressure Weight Height 92/minute 144/63 54 kg 1.676 m Cherie Cedeon PA-C 01/14/2024 8:44 PM Signed CNR-MOVEMENT DISORDERS [...] during tapping or a (more content not included)...[facility] WO contraston 10-07-2023* * *Final Report* * * DATE OF [...] iliac wings are otherwise unremarkable. DIVISION OF RADIOLOGYProvider, [facility] - 10/07/2023 * * *Final Report* * [...] and lumbar spine wi (more content not included)...[facility] Lumbar spine WO contraston 10-07-2023* * *Final Report* * * DATE OF [...] iliac wings are otherwise unremarkable. DIVISION OF RADIOLOGYProvider, [facility] - 10/07/2023 * * *Final Report* * [...] of the cervical, thor (more content not included)...[facility] SouthRadiology Study observation (narrative)[facility] Thoracic spine WO contraston 10-07-2023* * *Final Report* * * DATE OF [...] iliac wings are otherwise unremarkable. DIVISION OF RADIOLOGYProvider, [facility] - 10/07/2023 * * *Final Report* * [...] lumbar spine without contrast. (more content not included)...[facility] SouthNo Panel Informationon 10-07-2023 IMPRESSION: Degenerative changes at the cervical levels [...] and assume there are 5 lumbar-type vertebrae. [employer] Waste Technician: DEAN Transcribe Date/Time: Oct 07 2023 12:07P Dictated by : YANETH SALDAÑA MD This examination was interpreted and the report reviewed and electronically signed by: YANETH SALDAÑA MD on Oct 07 2023 12:21PM [facility] DIVISION OF RADIOLOGYRadiology Study observation (narrative)[facility] SouthNo Panel InformationOrdered By: Ccf Provider on 09-20-5044Vexvkdkpi ClinicCBC W Auto Differential panel (Bld)on 93-36-3839Kuujrjpxn (Bld) [#/Vol]0.10 10*3/uL <0.11 k/uLCleohiohealth doctors hospital ClinicBasophils/100 WBC (Bld)1.3 %[facility] Differential cell count method Nom (Bld)AutoCleveland ClinicEosinophils (Bld) [#/Vol]0.67 10*3/uLHigh<0.46 k/uLCleTriHealth Bethesda North HospitalEosinophils/100 WBC (Bld)8.4 % [facility] SouthErythrocyte distribution width (RBC) [Ratio]14.1 %11.5 - 15.0 % [facility] SouthHematocrit (Bld) [Volume fraction]46.3 %High36.0 - 46.0 % [facility] SouthHemoglobin (Bld) [Mass/Vol]15.3 g/dL11.5 - 15.5 g/dLSelect Medical Specialty Hospital - [facility] SouthImmature granulocytes (Bld) [#/Vol]<0.10 k/uLSelect Medical Specialty Hospital - [facility] SouthImmature granulocytes/100 WBC (Bld)0.0 %[facility] SouthLymphocytes (Bld) [#/Vol]3.14 10*3/uL1.00 - 4.00 k/uLSelect Medical Specialty Hospital - [facility] SouthLymphocytes/100 WBC (Bld)39.3 %[facility]MC Healthcare SystemH (RBC) [Entitic mass]31.4 pg26.0 - 34.0 pgClevelLifeCare Medical CenterHC (RBC) [Mass/Vol]33.0 g/dL30.5 - 36.0 g/dLACMC Healthcare SystemV (RBC) [Entitic vol]94.9 fL80.0 - 100.0 fLCleveland ClinicMonocytes (Bld) [#/Vol]0.83 10*3/uL<0.87 k/uL [facility] ClinicMonocytes/100 WBC (Bld)10.4 %[facility]rosio ClinicNeutrophils (Bld) [#/Vol]3.26 10*3/uL1.45 - 7.50 k/uLHanover ClinicNeutrophils/100 WBC (Bld)40.6 %[facility] ClinicNucleated RBC (Bld) [#/Vol]<0.01 k/uLHanover ClinicNucleated RBC/100 WBC (Bld) [Ratio]0.0 /100 WBCHanover ClinicPlatelet mean volume (Bld) [Entitic vol]11.7 fL9.0 - 12.7 fLCleveland ClinicPlatelets (Bld) [#/Vol]296 10*3/uL150 - 400 k/uLHanover ClinicRBC (Bld) [#/Vol]4.88 10*6/uL3.90 - 5.20 m/uLSelect Medical Specialty Hospital - [facility] SouthWBC (Bld) [#/Vol]8.00 10*3/uL3.70 - 11.00 k/uLSelect Medical Specialty Hospital - [facility] SouthComprehensive metabolic 2000 panelon 12-00-2987Yvotrxv [Mass/Vol]4.3 g/dL 3.9 - 4.9 g/dLHanover ClinicALP [Catalytic activity/Vol]92 U/L34 - 123 U/L [facility] ClinicALT [Catalytic activity/Vol]14 U/L7 - 38 U/LCleveland [facility] Anion gap [Moles/Vol]13 mmol/L9 - 18 mmol/LCleveland ClinicAST [Catalytic activity/Vol]24 U/L13 - 35 U/LCleveland ClinicBilirubin [Mass/Vol]0.3 mg/dL0.2 - 1.3 mg/dLHanover ClinicCalcium [Mass/Vol]11.0 mg/dLHigh8.5 - 10.2 mg/dL [facility] ClinicChloride [Moles/Vol]102 mmol/L97 - 105 mmol/LCleveland ClinicCO2 [Moles/Vol]25 mmol/L22 - 30 mmol/LCleveland ClinicCreatinine [Mass/Vol]0.95 mg/dL0.58 - 0.96 mg/dLSelect Medical Specialty Hospital - [facility] SouthEstimated Glomerular Filtration Rate62 mL/min/1.73m>=60 mL/min/1.73mCleveland ClinicGlucose [Mass/Vol]84 mg/dL74 - 99 mg/dLSelect Medical Specialty Hospital - [facility] SouthPotassium [Moles/Vol]4.0 mmol/L3.7 - 5.1 mmol/LCleveland ClinicProtein [Mass/Vol]6.7 g/dL6.3 - 8.0 g/dLSelect Medical Cleveland Clinic Rehabilitation Hospital, Avonodium [Moles/Vol] 140 mmol/L136 - 144 mmol/LCleveland ClinicUrea nitrogen [Mass/Vol]20 mg/dL7 - 21 mg/dLSelect Medical Specialty Hospital - Columbus SouthESR Westergren method (Bld) [Velocity]on 33-29-9164DOB (Bld) [Velocity]10 mm/h0 - 20 mm/hrSelect Medical Specialty Hospital - Columbus SouthFOLATE SERUMon 09-13-2023 Folate [Mass/Vol]>4.7 ng/mLCleveland ClinicHOMOCYSTEINEon 41-28-5039Pkahkzjfijqh [Moles/Vol]11.3 umol/L<15.1 umol/LCleveland SvphmlUdZ3n (Bld)on 09-13-2023 Average glucose Estimated from glycated hemoglobin (Bld) [Mass/Vol]103 mg/dL [facility] SouthHbA1c (Bld) [Mass fraction]5.2 %4.3 - 5.6 %[facility] BLDon 71-60-9795XFA Qn0.911 m[IU]/L0.270 - 4.200 mIU/LCleveland ClinicVITAMIN B12 BLOODon 42-78-9424Szsbhyowv (Vitamin B12) [Mass/Vol]939 pg/mL232 - 1,245 pg/mLCleveland ClinicCHEMISTRYOrdered By: SYSTEM SYSTEM on 48-29-8470Eglsytlt 19.60 pg/dODhwygj65.10 - 27.10 pg/mLRemisol ChemComment on above:Interpretive Data: The 95% CI (Confidence Interval) PPV (Positive Predictive Value) for myocardial infarction in females is 38 pg/mL, in males 51 pg/mL. The results should be used in conjunction withclinical conditions of myocardial infarction. (Access High Sensitivity Troponin I Instructions For Use, Jacques Ceci, January 2018)Anion gap [Moles/Vol]14 mmol/LNormal6 - 16 mEq/LRemisol ChemCalcium [Mass/Vol]11.6 mg/dLHigh8.9 - 11.1 mg/dLRemisol ChemChloride [Moles/Vol]105 mmol/DLojnon687 - 111 mmol/LRemisol ChemCO2 [Moles/Vol]26 mmol/ULdovil24 - 31 mmol/LRemisol ChemCreatinine [Mass/Vol]0.9 mg/dLNormal0.5 - 1.3 mg/dLRemisol QlgngRAJ42 mL/min/1.73 l9Nuzwws>=59mL/min/1.73 j2Vbmnphf ChemGlucose [Mass/Vol] 87 mg/dRCvfubg36 - 199 mg/dLRemisol ChemPotassium [Moles/Vol]4.0 mmol/LNormal3.5 - 5.3 mmol/LRemisol ChemSodium [Moles/Vol]141 mmol/NHgpqmy094 - 145 mmol/L Remisol JxarNiclutgf70.20 pg/pYClolnj12.10 - 27.10 pg/mLRemisol ChemComment on above:Interpretive Data: The 95% CI (Confidence Interval) PPV (Positive Predictive Value) for myocardial infarction in females is 38 pg/mL, in males 51 pg/mL. The results should be used in conjunction withclinical conditions of myocardial infarction. (Access High Sensitivity Troponin I Instructions For Use, Jacques Ceci, January 2018)Urea nitrogen [Mass/Vol]20 mg/dLNormal5 - 21 mg/dLRemisol ChemUrea nitrogen/Creatinine [Mass ratio]22 mg/opJqgu95 - 20Remisol ChemHEMATOLOGYOrdered By: SYSTEM SYSTEM on 13-84-5713Wunmnsuv Absolute0.1 E9/LNormal0.0 - 0.2 E9/L Remisol HemeBasophils/100 WBC (Bld)1.1 %Normal0.0 - 2.0 %Remisol HemeEos Absolute0.2 E9/LNormal0.0 - 0.5 E9/LRemisol HemeEosinophils/100 WBC (Bld)1.7 % Normal0.0 - 8.0 %Remisol HemeErythrocyte distribution width (RBC) [Ratio]13.5 % Ydpsyt34.9 - 14.2 %Remisol HemeHematocrit (Bld) [Volume fraction]43.0 %Normal 34.0 - 46.0 %Remisol HemeHemoglobin (Bld) [Mass/Vol]14.3 g/gQPgtrgt68.0 - 16.0 gm/dLRemisol HemeLymph Absolute3.4 E9/LNormal1.0 - 4.0 E9/LRemisol Heme Lymphocytes/100 WBC (Bld)38.0 %Facwka44.0 - 50.0 %Remisol HemeMCH (RBC) [Entitic mass]30.9 vnNgwfjj14.0 - 34.0 pgRemisol HemeMCHC (RBC) [Mass/Vol]33.0 g/dL Wtubwi84.4 - 36.0 gm/dLRemisol HemeMCV (RBC) [Entitic vol]93.5 uZDgvtwr16.0 - 100.0 fLRemisol HemeMono Absolute1.2 E9/LHigh0.2 - 1.0 E9/LRemisol Heme Monocytes/100 WBC (Bld)12.9 %Normal4.0 - 14.0 %Remisol HemeNeutro Absolute4.2 E9/LNormal2.0 - 7.5 E9/LRemisol HemeNeutro Auto46.3 %Mmpzay27.0 - 75.0 %Remisol XovxWwtzwxjw563.0 E9/DTotxei867.0 - 500.0 E9/LRemisol HemePlatelet mean volume (Bld) [Entitic vol]9.3 fLNormal6.4 - 10.8 fLRemisol HemeRBC4.6 E12/LNormal4.3 - 5.9 E12/LRemisol HemeWBC9.0 E9/LNormal4.0 - 11.0 E9/LRemisol HemeURINALYSIS Ordered By: Sara Guzman on 63-50-9351Atvnmvfs LM Ql (Urine sed)Trace /HPF NormalTrace/HPFFT UA Auto SSBilirubin Ql (U)Negative (07/16/23 12:49 PM)NormalNegativeFT UA Auto SSClarity (U)Clear (07/16/23 12:49 PM)NormalClearFVETERANS A[facility] [place] Auto SSColor (U)Yellow (07/16/23 12:49 PM)NormalYellowFT UA Auto SSCrystals LM Ql (Urine sed)Present (07/16/23 12:49 PM)NormalFT UA Auto SSEpithelial cells.squamous LM.HPF (Urine sed) [#/Area]0-2 /HPFNormal0-2/HPFFTMC UA Auto SSGlucose Test strip (U) [Mass/Vol]Negative (07/16/23 12:49 PM)NormalNegativeFTMC UA Auto SSHemoglobin Ql (U)Negative (07/16/23 12:49 PM)NormalNegativeFTMC UA Auto SSKetones (U) [Mass/Vol]Negative (07/16/23 12:49 PM)NormalNegativeFT UA Auto SSLithium.plasma/Julian.RBC (Bld) [Mass ratio]0-3 /HPFNormal0-3/HPFFTMC UA Auto SSNitrite Ql (U)Negative (07/16/23 12:49 PM)NormalNegativeWE[facility] Auto SSpH (U)7.0 *NA* (07/16/23 12:49 PM)Invalid Interpretation Code5.0 - 9.0FT UA Auto SSProtein (U) [Mass/Vol]Negative (07/16/23 12:49 PM)NormalNegativeFT UA Auto SSSpecific gravity (U) [Rel density] 1.015 *NA* (07/16/23 12:49 PM)Invalid Interpretation Code1.005 - 1.030FT UA Auto SSUA Spec DescClean Catch (07/16/23 12:49 PM)NormalFT UA Auto SSUrobilinogen Qn (U)0.5943010 {Phoebe'U}/dLNormal0.0 - 1.0 EU/dLFT UA Auto SSWBC Auto Ql (U)1+ *ABN* (07/16/23 12:49 PM)Invalid Interpretation CodeNegativeFTMC UA Auto SSWBC LM.HPF (Urine sed) [#/Area]0-5 /HPFNormal0-5/HPFFTMC UA Auto SSCHEMISTRYOrdered By: SYSTEM SYSTEM on 27-18-2722Agvhymgt415.00 pg/mLInvalid Interpretation Code10.10 - 27.10 pg/mLRemisol ChemComment on above:Result Comment: Critical Result Verified by Previous Result Critical Result I_TnIHS:187.0 Called to and read back by: ANGEL RESTREPO at: 06/23/2023 12:10:53 by:Bgiftytive Data: The 95% CI (Confidence Interval) PPV (Positive Predictive Value) for myocardial infarction in females is 38 pg/mL, in males 51 pg/mL. The results should be used in conjunction withclinical conditions of myocardial infarction. (Ultralife High Sensitivity Troponin I Instructions For Use, [place], January 2018)Advdfufr017.20 pg/mLInvalid Interpretation Code10.10 - 27.10 pg/mL Remisol ChemComment on above:Result Comment: Critical Result Verified by Previous Result Critical Result I_TnIHS:183.2 Called to and read back by: JAIMEE MUNSON at: 06/23/2023 09:12:46 by:Vero AnalyticspreApptimate Data: The 95% CI (Confidence Interval) PPV (Positive Predictive Value) for myocardial infarction in females is 38 pg/mL, in males 51 pg/mL. The results should be used in conjunction withclinical conditions of myocardial infarction. (Ultralife High Sensitivity Troponin I Instructions For Use, [place], January 2018)Jsejxmvg003.80 pg/mLInvalid Interpretation Code10.10 - 27.10 pg/mL Remisol ChemComment on above:Result Comment: Critical Result Verified by Repeat Analysis Critical Result I_TnIHS:116.8 Called to and read back by: ROD YU at: 06/23/2023 06:19:20 by:[employer] Data: The 95% CI (Confidence Interval) PPV (Positive Predictive Value) for myocardial infarction in females is 38 pg/mL, in males 51 pg/mL. The results should be used in conjunction withclinical conditions of myocardial infarction. (Ultralife High Sensitivity Troponin I Instructions For Use, [place], January 2018)Lactic Acid Lvl1.1 mmol/LNormal0.5 - 2.2 mmol/LRemisol ChemAlbumin [Mass/Vol]4.1 g/dLNormal3.3 - 5.0 gm/dLRemisol ChemAlbumin/Globulin [Mass ratio] 1.7 {ratio}Normal1.1 - 2.2Remisol ChemAlk Phos80 [iU]/jIrdjcv07 - 98 Int._Unit/L Remisol IiwqVHF26 [iU]/dNormal6 - 46 Int._Unit/LRemisol ChemAnion gap [Moles/Vol]13 mmol/LNormal6 - 16 mEq/LRemisol SokrNTV91 [iU]/dNormal5 - 43 Int._Unit/LRemisol ChemBili Direct0.1 mg/dLNormal0.0 - 0.4 mg/dLRemisol ChemBili Indirect0.5 mg/dLNormal0.1 - 0.9 mg/dLRemisol ChemBili Total0.6 mg/dLNormal0.0 - 1.1 mg/dLRemisol ChemCalcium [Mass/Vol]10.7 mg/dLNormal8.9 - 11.1 mg/dLRemisol ChemChloride [Moles/Vol]103 mmol/DHcbotc265 - 111 mmol/LRemisol ChemCO2 [Moles/Vol]25 mmol/AOgfmix74 - 31 mmol/LRemisol ChemCreatinine [Mass/Vol]0.9 mg/dLNormal0.5 - 1.3 mg/dLRemisol ChemeGFRmL/min/1.73 e4Tpttur>=59mL/min/1.73 m2 Remisol ChemGlobulin (S) [Mass/Vol]2.4 g/dLNormal1.4 - 4.0 gm/dLRemisol Chem Glucose [Mass/Vol]98 mg/pWJxbflf20 - 199 mg/dLRemisol ChemMagnesium [Mass/Vol] 1.8 mg/dLNormal1.3 - 2.4 mg/dLRemisol ChemPotassium [Moles/Vol]3.5 mmol/LNormal 3.5 - 5.3 mmol/LRemisol ChemProtein [Mass/Vol]6.5 g/dLNormal6.0 - 7.8 gm/dL Remisol ChemSodium [Moles/Vol]137 mmol/UQwhurm041 - 145 mmol/LRemisol ChemTSH Qn 0.68 m[IU]/LNormal0.34 - 5.60 mcIU/mLRemisol ChemUrea nitrogen [Mass/Vol]18 mg/dLNormal5 - 21 mg/dLRemisol ChemUrea nitrogen/Creatinine [Mass ratio]20 mg/mg Xmhzeb05 - 20Remisol ChemCHEMISTRYOrdered By: Sharonda Perez on 56-99-0148Vxvafpi [Mass/Vol]96 mg/rFFiuhvu51 - 99 mg/dLWEATHERFORD [facility] [place] POC SubsectionComment on above:Result Comment: Notified RN/ALEXANDEROC Device [id number] 1Invalid Interpretation Code [facility] P[facility] SubsectionPOC User [id number] 1Invalid Interpretation CodeWEATHERFORD REGIONAL [facility] [place] POC SubsectionPOC UsernameMJOSH BEATTYInvalalexandre Interpretation CodeWEATHERFORD REGIONAL [facility]OSP[facility] [place] POC SubsectionCOAGULATIONOrdered By: Hoang Chris on 26-31-4783hGMS Coag (PPP) [Time]30.4 nYafowv61.1 - 36.5 second(s)[facility] [place] Auto CoagComment on above: Interpretive Data: Parameter 15 days - 4 weeks 1 - [...] the same coagulation reagent and instrumentation as [facility]. Currently there are no coagulation studies available worldwide for children to 14 days, andno normal ranges. Heparin therapeutic range (represented by Anti-Factor Xa activity of 0.2 - 0.4 U/mL) corresponds to PTT of 56.6 - 109.0 sec.INR Coag (PPP) [Relative time]1.0 {INR}Invalid Interpretation CodeWEATHERFORD REGIONAL [facility] [place] Auto CoagComment on above:Interpretive Data: INR results are specifically intended to assess patients stabilized on long-term Anticoagulation therapy suggested INR s Less Intensive Anticoagulation 2.0 3.0 Conventional Range 3.0 4.5PT Coag (PPP) [Time]11.7 sNormal9.4 - 12.5 second(s) [facility] Auto CoagComment on above:Interpretive Data: 15 days - 4 weeks 1 - [...] the same coagulation reagent and instrumentation as [facility]. Currently there are no coagulation studies available worldwide for children to 14 days, andno normal ranges.HEMATOLOGYOrdered By: [employer] SYSTEM on 69-20-7733Avnxrpjfm/100 WBC (Bld)0.4 %Normal0.0 - 2.0 %FT HemeAutoSSBasophils/Leukocytes Auto (Bld) [Pure # fraction]0.1 E9/LNormal0.0 - 0.2 E9/LFTMC HemeAutoSSEosinophils/100 WBC (Bld) 0.8 %Normal0.0 - 8.0 %FT HemeAutoSSEosinophils/Leukocytes Auto (Bld) [Pure # fraction]0.1 E9/LNormal0.0 - 0.5 E9/LFTMC HemeAutoSSLymphocytes/100 WBC (Bld) 15.1 %Wfktng30.0 - 50.0 %FTMC HemeAutoSSLymphocytes/Leukocytes Auto (Bld) [Pure # fraction]2.2 E9/LNormal1.0 - 4.0 E9/LFTMC HemeAutoSSMonocytes/100 WBC (Bld) 11.3 %Normal4.0 - 14.0 %FT HemeAutoSSMonocytes/Leukocytes Auto (Bld) [Pure # fraction]1.6 E9/LHigh0.2 - 1.0 E9/LFTMC HemeAutoSSNeutrophils/100 WBC (Bld)72.4 %Exofkc96.0 - 75.0 %FTMC HemeAutoSSNeutrophils/Leukocytes Auto (Bld) [Pure # fraction]10.5 E9/LHigh2.0 - 7.5 E9/LFTMC HemeAutoSSHEMATOLOGYOrdered By: Hoang Chris on 52-58-1989Zvqqyozuvit distribution width (RBC) [Ratio]13.6 %Normal 10.9 - 14.2 %FTMC HemeAutoSSHematocrit (Bld) [Volume fraction]40.9 %Dvmzdw10.0 - 46.0 %FTMC HemeAutoSSHemoglobin (Bld) [Mass/Vol]13.7 g/nFZhxowg38.0 - 16.0 gm/dL FTMC HemeAutoSSMCH (RBC) [Entitic mass]30.8 thYxufro98.0 - 34.0 pgFTMC HemeAutoSSMCHC (RBC) [Mass/Vol]33.4 g/aSApdcta30.4 - 36.0 gm/dLFTMC HemeAutoSS MCV (RBC) [Entitic vol]92.2 oATucbop63.0 - 100.0 fLFTMC HemeAutoSSPlatelet mean volume (Bld) [Entitic vol]9.9 fLNormal6.4 - 10.8 fLFTMC HemeAutoSSPlatelets (Bld) [#/Vol]301.0 E9/ZGzxlfi436.0 - 500.0 E9/LFTMC HemeAutoSSRBC (Bld) [#/Vol] 4.4 E12/LNormal4.3 - 5.9 E12/LFTMC HemeAutoSSWBC corrected for nucl RBC Auto (Bld) [#/Vol]14.5 E9/LHigh4.0 - 11.0 E9/LFTMC HemeAutoSSMICRO OTHER TESTSOrdered By: Hoang Chris on 88-00-8890Bin[place] COV Int NEG CtlPass (06/23/23 2:12 AM)Normal[facility] [place] SeroRapid COV Int POS CtlPass (06/23/23 2:12 AM)NormalWEATHERF[facility] [place] SeroSARS-CoV+SARS-CoV-2 (COVID-19) Ag IA.rapid Ql (Resp)Not Detected 11 (06/23/23 2:12 AM)NormalNot DetectedWEATHERFORD [facility]ION[facility] [place] Man SeroComment on above:Interpretive Data: The [employer] Veritor System for Rapid Detection of SARS-CoV-2 is a chromatographic digital immunoassay intended for the direct and qualitative detection of SARS-CoV-2 nucleocapsid antigens in nasal swabs from individuals who are suspected of COVID-19 by their healthcare provider withinthe first five days of the onset of [...] of proteins from SARS-CoV-2, not for any otherviruses or pathogens; and, in the [facility], this test is only authorized for the duration of the declaration that circumstances exist justifying the authorization of emergency use of in vitro diagnostics for detection and/or diagnosis of the virus that causes COVID-19 under Section 564(b)(1) of the Act,21 U.S.C. 360bbb-3(b)(1), unless the authorization is terminated or revoked sooner.URINALYSISOrdered By: Hoang Chris on [id number] LM Ql (Urine sed)1+ /HPFInvalid Interpretation CodeTrace/HPF [facility] [place] UA Auto SSBilirubin Ql (U)Negative (06/23/23 3:01 AM)NormalNegativeFT UA Auto SSClarity (U)Slightly Cloudy *ABN* (06/23/23 3:01 AM)Invalid Interpretation CodeClearFTMC UA Auto SSColor (U)Yellow (06/23/23 3:01 AM)NormalYellowFT UA Auto SSEpithelial cells.squamous LM.HPF (Urine sed) [#/Area]0-2 /HPFNormal0-2/HPFWEATHERFORD [facility] [place] UA Auto SSGlucose Test strip (U) [Mass/Vol]Negative (06/23/23 3:01 AM)NormalNegativeWEATHERFORD [facility] [place] UA Auto SSHemoglobin Ql (U)Negative (06/23/23 3:01 AM)NormalNegativeWEATHERF[facility] [place] UA Auto SSKetones (U) [Mass/Vol]Negative (06/23/23 3:01 AM)NormalNegativeWEATHERFORD [facility] [place] UA Auto SSLithium.plasma/Julian.RBC (Bld) [Mass ratio]0-3 /HPFNormal0-3/HPFWEATHERFORD [facility] [place] UA Auto SSNitrite Ql (U)Negative (06/23/23 3:01 AM)NormalNegativeWEATHERFORD [facility] [place] UA Auto SSpH (U)7.5 *NA* (06/23/23 3:01 AM)Invalid Interpretation Code5.0 - 9.0[facility] [place] UA Auto SSProtein (U) [Mass/Vol]Negative (06/23/23 3:01 AM)NormalNegativeWEATHERFORD [facility] [place] UA Auto SSSpecific gravity (U) [Rel density] 1.015 *NA* (06/23/23 3:01 AM)Invalid Interpretation Code1.005 - 1.030[facility] [place] UA Auto SSUA Spec DescClean Catch (06/23/23 3:01 AM)NormalWEATHERFORD [facility]IONAL [facility] [place] UA Auto SSUrobilinogen Qn (U)0.2298616 {Phoebe'U}/dLNormal0.0 - 1.0 EU/dLWEATHERFORD REGIONAL [facility] [place] UA Auto SSWBC Auto Ql (U)1+ *ABN* (06/23/23 3:01 AM)Invalid Interpretation CodeNegativeWEATHERFORD [facility] [place] UA Auto SSWBC LM.HPF (Urine sed) [#/Area]6-15 /HPFInvalid Interpretation Code0-5/HPFWEATHERFORD [facility] [place] UA Auto SS Creatinine (Bld) [Mass/Vol]Ordered By: Cathie Gill on 48-84-7327Bafsoyanmw [Mass/Vol]1.0 mg/dL0.6-1.3FSCCI Hospital LimaComment on above: ER/ESD physician is notified/shown all ISTAT results.Critical values may be confirmed by laboratorytesting ifdeemed necessary by ER attending doctor.No Panel InformationOrdered By: Cathie Gill on 93-62-0977Zngsgar Estimated GFR (eGFR)58.023Mount St. Mary HospitalBNPon 37-82-6445Qrejplgqcqf peptide B (Bld) [Mass/Vol]90.0 pg/mLNormal<=1,800.0The [facility] HospitalComment on above:Performed By: #### MG, CMP, TSH, T7, BNP #### [facility] [address] [place] [address] Dr. Glenys Lopes AUTO DIFFon 57-01-7870PNLH #0.1 103/ulNormal0.0-0.1The [facility] HospitalComment on above:Performed By: #### MG, CMP, TSH, T7, BNP #### [facility] [address] [place] [address] Dr. Glenys HollyBasophils/100 WBC (Bld)1.0 %Normal0.2-2.0The [facility] Comment on above:Performed By: #### MG, CMP, TSH, T7, BNP #### [facility] [address] [place] [address] Dr. Glenys Araujo #0.5 103/ulNormal0.0-0.7The [facility] HospitalComment on above: Performed By: #### MG, CMP, TSH, T7, BNP #### [facility] [address] [place] [address] Dr. Glenys Valenzuelaosinophils/100 WBC (Bld)6.4 %Normal0.9-7.0The [facility] Comment on above:Performed By: #### MG, CMP, TSH, T7, BNP #### [facility] [address] [place] [address] Dr. Glenys Valenzuelarythrocyte distribution width (RBC) [Ratio]15.4 %Critically high 11.0-15.0The [facility] HospitalComment on above:Performed By: #### MG, CMP, TSH, T7, BNP #### [facility] [address] [place] [address] Dr. Glenys HollyHematocrit (Bld) [Volume fraction]42.8 %Jrvjrl44.0-48.0The [facility] HospitalComment on above:Performed By: #### MG, CMP, TSH, T7, BNP #### [facility] [address] [place] [address] Dr. Glenys HollyHemoglobin (Bld) [Mass/Vol]14.1 g/fWWpwrdr19.0-16.0The [facility] HospitalComment on above:Performed By: #### MG, CMP, TSH, T7, BNP #### [facility] [address] [place] [address] Dr. Glenys Couch #0.01 10e3/ulNormal0.00-0.03The [facility] HospitalComment on above:Performed By: #### MG, CMP, TSH, T7, BNP #### [facility] [address] [place] [address] Dr. Glenys Couch %0.1 %Normal0.0-0.5The [facility] HospitalComment on above: Performed By: #### MG, CMP, TSH, T7, BNP #### [facility] [address] [place] [address] Dr. Glenys Lopez #3.3 103/ulNormal1.2-3.8The [facility] HospitalComment on above:Performed By: #### MG, CMP, TSH, T7, BNP #### [facility] [address] [place] [address] Dr. Glenys Christopherhocytes/100 WBC (Bld)44.2 %Ldtuyy47.5-60.0The [facility] HospitalComment on above:Performed By: #### MG, CMP, TSH, T7, BNP #### [facility] [address] [place] [address] Dr. Glenys JaureguiUAL DIFF REQNONormalThe [facility] HospitalComment on above: Performed By: #### MG, CMP, TSH, T7, BNP #### [facility] [address] [place] [address] Dr. Glenys Wood (RBC) [Entitic mass]30.3 duJwndzi23.7-34.0The [facility] HospitalComment on above:Performed By: #### MG, CMP, TSH, T7, BNP #### [facility] [address] [place] [address] Dr. Glenys Dye (RBC) [Mass/Vol]32.9 g/vFEpupng48.9-35.2The [facility] HospitalComment on above:Performed By: #### MG, CMP, TSH, T7, BNP #### [facility] [address] [place] [address] Dr. Glenys Dye (RBC) [Entitic vol]92.0 gXHtbnhu82.0-99.0The [facility] Park HospitalComment on above:Performed By: #### MG, CMP, TSH, T7, BNP #### [facility] [address] [place] [address] Dr. Glenys Duenas #1.2 103/ulCritically high0.3-0.8The [facility] Comment on above:Performed By: #### MG, CMP, TSH, T7, BNP #### [facility] [address] [place] [address] Dr. Glenys Hughesocytes/100 WBC (Bld)16.4 %Critically high1.7-12.0The [facility] HospitalComment on above:Performed By: #### MG, CMP, TSH, T7, BNP #### [facility] [address] [place] [address] Dr. Glenys Low #2.4 103/ulNormal1.4-6.5The [facility] HospitalComment on above:Performed By: #### MG, CMP, TSH, T7, BNP #### [facility] [address] [place] [address] Dr. Glenys Dentonutrophils/100 WBC (Bld)31.9 %Critically low43.0-75.0The [facility] HospitalComment on above:Performed By: #### MG, CMP, TSH, T7, BNP #### [facility] [address] [place] [address] Dr. Glenys Garnett mean volume (Bld) [Entitic vol]10.3 fLNormal9.5-13.5The [facility] HospitalComment on above:Performed By: #### MG, CMP, TSH, T7, BNP #### [facility] [address] [address] [address] Glenys HollyPLT379 103/txThxcwu043-745Vua [facility]huja Medical Centerment on above: Performed By: #### MG, CMP, TSH, T7, BNP #### [facility] [address] [place] [address] Dr. Glenys HollyRBC4.65 106/ulNormal4.20-5.40The [facility] HospitalComment on above:Performed By: #### MG, CMP, TSH, T7, BNP #### [facility] [address] [place] [address] Dr. Glenys HollyWBC7.4 103/ulNormal4.0-11.0The [facility] Centerment on above: Performed By: #### MG, CMP, TSH, T7, BNP #### [facility] [address] [place] [address] Dr. Glenys HollyFERRITINon 17-39-1926Rleslfzi [Mass/Vol]68.0 ng/mLNormal8.0-252.0 The [facility] HospitalComment on above:Performed By: #### FERR, IRON, VITAD ####[facility] [address] [address]Dr. Glenys Meneses THYROXINE INDEX T7on 50-62-1202TDK6.60Dznfpx9.30-4.50The [facility] on above:Performed By: #### MG, CMP, TSH, T7, BNP #### [facility] [address] [place] [address] Dr. Glenys HollyT3U36.0 %Alhnvz31.0-39.0The [facility] on above: Performed By: #### MG, CMP, TSH, T7, BNP #### [facility] [address] [place] [address] Dr. Glenys HollyT4 [Mass/Vol]8.60 ug/dLNormal4.80-13.90The [facility] Comment on above:Performed By: #### MG, CMP, TSH, T7, BNP #### [facility] [address] [address] [address] Glenys Moore 40-06-4836Iqxa [Mass/Vol]52.0 ug/lXBgfsej21.0-170.0The [facility] HospitalComment on above:Performed By: #### FERR, IRON, VITAD ####[facility] [address] [address]Dr. Glenys HollyMAGNESIUMon 03-93-2793Evaottvjk [Mass/Vol]2.0 mg/dLNormal1.8-2.4The [facility] HospitalComment on above:Performed By: #### MG, CMP, TSH, T7, BNP #### [facility] [address] [address] [address] Glenys HollyPROF 14(COMP METB)on 79-17-1777Hydgzdi [Mass/Vol]3.5 g/dLNormal 3.4-5.0The [facility] HospitalComment on above:Performed By: #### MG, CMP, TSH, T7, BNP #### [facility] [address] [address] [address] Glenys HollyAlbumin/Globulin [Mass ratio]1.0 {ratio}NormalThe [facility] on above:Performed By: #### MG, CMP, TSH, T7, BNP #### [facility] [address] [address] [address] Glenys Justin [Catalytic activity/Vol]134 U/LCritically brcl46-695Rxh [facility] HospitalComment on above:Performed By: #### MG, CMP, TSH, T7, BNP #### [facility] [address] [address] [address] Glenys Gifford [Catalytic activity/Vol]34 U/XXlutqa88-78Kay [facility] on above:Performed By: #### MG, CMP, TSH, T7, BNP #### [facility] [address] [address] [address] Glenys Medina gap [Moles/Vol]8.8 mmol/LNormalThe [facility] HospitalComment on above:Performed By: #### MG, CMP, TSH, T7, BNP #### [facility] [address] [address] [address] Glenys HollyAST [Catalytic activity/Vol]19 U/BGlbtrn88-75Wat [facility] Centerment on above:Performed By: #### MG, CMP, TSH, T7, BNP #### [facility] [address] [address] [address] Glenys HollyBilirubin [Mass/Vol]0.2 mg/dLNormal0.2-1.0The [facility] Comment on above:Performed By: #### MG, CMP, TSH, T7, BNP #### [facility] [address] [place] [address] Dr. Glenys HollyCalcium [Mass/Vol]10.6 mg/dLCritically high8.5-10.1The [facility] on above:Performed By: #### MG, CMP, TSH, T7, BNP #### [facility] [address] [place] [address] Dr. Glenys HollyChloride [Moles/Vol]105 mmol/SDcwvmi83-135Buh [facility] Comment on above:Performed By: #### MG, CMP, TSH, T7, BNP #### [facility] [address] [place] [address] Dr. Glenys HollyCO2 [Moles/Vol]30.0 mmol/EVjbogq39.0-32.0The [facility] Comment on above:Performed By: #### MG, CMP, TSH, T7, BNP #### [facility] [address] [place] [address] Dr. Glenys HollyCreatinine [Mass/Vol]0.86 mg/dLNormal0.55-1.02The [facility] Centerment on above:Performed By: #### MG, CMP, TSH, T7, BNP #### [facility] [address] [place] [address] Dr. Veronica ChangEGFR-AF EQUATORIAL GUINEAN>60Normal>=60The [facility] HospitalComment on above:Performed By: #### MG, CMP, TSH, T7, BNP #### [facility] [address] [place] [address] Dr. Glenys ValenzuelaGFR-NON AF EQUATORIAL GUINEAN>60Normal>=60The [facility] HospitalComment on above:Performed By: #### MG, CMP, TSH, T7, BNP #### [facility] [address] [place] [address] Dr. Glenys HollyGlobulin (S) [Mass/Vol]3.5 g/dLNormalThe [facility] HospitalComment on above:Performed By: #### MG, CMP, TSH, T7, BNP #### [facility] [address] [place] [address] Dr. Glenys HollyGlucose [Mass/Vol]99 mg/qFXodggj23-207IqgMercy Health [facility]. [facility] Comment on above:Performed By: #### MG, CMP, TSH, T7, BNP #### [facility] [address] [place] [address] Dr. Glenys HollyPotassium [Moles/Vol]3.8 mmol/LNormal3.5-5.1[facility] Comment on above:Performed By: #### MG, CMP, TSH, T7, BNP #### [facility] [address] [place] [address] Dr. Glenys HollyProtein [Mass/Vol]7.0 g/dLNormal6.4-8.2The [facility] Comment on above:Performed By: #### MG, CMP, TSH, T7, BNP #### [facility] [address] [place] [address] Dr. Glenys HollySodium [Moles/Vol]140 mmol/QVsfztl732-412Wlf [facility] Comment on above:Performed By: #### MG, CMP, TSH, T7, BNP #### [facility] [address] [place] [address] Dr. Glenys HollyUrea nitrogen [Mass/Vol]25.0 mg/dLCritically high7.0-18.0The [facility] HospitalComment on above:Performed By: #### MG, CMP, TSH, T7, BNP #### [facility] [address] [address] [address] Glenys HollyUrea nitrogen/Creatinine [Mass ratio]29.1 mg/mgFlower HospitalComment on above:Performed By: #### MG, CMP, TSH, T7, BNP #### [facility] [address] [address] [address] Glenys HollyTSHomiguelangel 24-19-9724NHH5.720 uIU/mLNormal0.358-3.740[facility]. Anne HospitalComment on above:Performed By: #### MG, CMP, TSH, T7, BNP #### [facility] [address] [address] [address] Glenys HollyVITAMIN D 25 OHon 95-33-8474NBU D 25-OH89.3 ng/mLNormalThe [facility] HospitalComment on above:Performed By: #### FERR, IRON, VITAD ####[facility] [address] [address]Dr. Glenys NinoT D RANGESSEE BELOWFlower HospitalComment on above: Result Comment: <20 ng/mL Vit D deficient 20 - <30 ng/mL Vit D insufficient 30 - 100 ng/mL Vit D sufficient >100 ng/mL Potential ToxicityPerformed By: #### FERR, IRON, VITAD ####[facility] [address] [address]Dr. Glenys Rowland STRESS/REST MULTIon 23-00-5488DI STRESS/REST MULTI Patient: JUDITH LANDRatna Exam Date: 05/24/2022 : 1945 Gender:F Ordering : DR KAVON SAMS . Admission #: [id number] Family : Order #: [id number] CLICK HERE TO VIEW EXAM RADIOLOGY REPORT [...] study was abnormal per attending physician Dr. Falrey due to blood pressure and EKG changes. [...] by: Ramiro Spencer M.D. on 05/24/2022 at 16:02Flower HospitalBNPon 65-06-3552Yifjmhdpcsn peptide B (Bld) [Mass/Vol]1305.0 pg/mLNormal <=1,800.0The [facility] HospitalComment on above:Performed By: #### MG, CMP, TSH, T7, BNP #### [facility] [address] [place] [address] Dr. Glenys Lopes AUTO DIFFon 98-95-5009KPFC #0.0 103/ulNormal0.0-0.1The [facility] HospitalComment on above:Performed By: #### MG, CMP, TSH, T7, BNP #### [facility] [address] [place] [address] Dr. Glenys Garrettsophils/100 WBC (Bld)0.3 %Normal0.2-2.0[facility] Comment on above:Performed By: #### MG, CMP, TSH, T7, BNP #### [facility] [address] [place] [address] Dr. Glenys Araujo #0.0 103/ulNormal0.0-0.7The [facility] HospitalComment on above: Performed By: #### MG, CMP, TSH, T7, BNP #### [facility] [address] [place] [address] Dr. Glenys Valenzuelaosinophils/100 WBC (Bld)0.1 %Critically low0.9-7.0The [facility] HospitalComment on above:Performed By: #### MG, CMP, TSH, T7, BNP #### [facility] [address] [place] [address] Dr. Glenys Valenzuelarythrocyte distribution width (RBC) [Ratio]15.1 %Critically high 11.0-15.0The [facility] HospitalComment on above:Performed By: #### MG, CMP, TSH, T7, BNP #### [facility] [address] [place] [address] Dr. Glenys HollyHematocrit (Bld) [Volume fraction]42.9 %Wjanqt15.0-48.0The [facility] HospitalComment on above:Performed By: #### MG, CMP, TSH, T7, BNP #### [facility] [address] [place] [address] Dr. Glenys HollyHemoglobin (Bld) [Mass/Vol]14.6 g/yABfefks60.0-16.0The [facility] HospitalComment on above:Performed By: #### MG, CMP, TSH, T7, BNP #### [facility] [address] [place] [address] Dr. Glenys Couch #0.05 10e3/ulCritically high0.00-0.03The [facility] Comment on above:Performed By: #### MG, CMP, TSH, T7, BNP #### [facility] [address] [place] [address] Dr. Glenys HollyIG %0.7 %Critically high0.0-0.5The [facility] HospitalComment on above:Performed By: #### MG, CMP, TSH, T7, BNP #### [facility] [address] [place] [address] Dr. Glenys NguyenMPH #1.6 103/ulNormal1.2-3.8The [facility] HospitalComment on above:Performed By: #### MG, CMP, TSH, T7, BNP #### [facility] [address] [address] [address] Glenys Nguyenmphocytes/100 WBC (Bld)20.4 %Critically low20.5-60.0The [facility] HospitalComment on above:Performed By: #### MG, CMP, TSH, T7, BNP #### [facility] [address] [place] [address] Dr. Glenys Kelley DIFF REQNONormalThe [facility] HospitalComment on above: Performed By: #### MG, CMP, TSH, T7, BNP #### [facility] [address] [place] [address] Dr. Glenys Dye (RBC) [Entitic mass]29.9 fsAdxhkz58.7-34.0The [facility] HospitalComment on above:Performed By: #### MG, CMP, TSH, T7, BNP #### [facility] [address] [place] [address] Dr. Glenys Dye (RBC) [Mass/Vol]34.0 g/fZPfifhz70.9-35.2The [facility] HospitalComment on above:Performed By: #### MG, CMP, TSH, T7, BNP #### [facility] [address] [place] [address] Dr. Glenys Dye (RBC) [Entitic vol]87.9 nYPibult39.0-99.0The [facility] HospitalComment on above:Performed By: #### MG, CMP, TSH, T7, BNP #### [facility] [address] [place] [address] Dr. Glenys Duenas #0.7 103/ulNormal0.3-0.8The [facility] Centerment on above:Performed By: #### MG, CMP, TSH, T7, BNP #### [facility] [address] [place] [address] Dr. Glenys Hughesocytes/100 WBC (Bld)9.5 %Normal1.7-12.0The [facility] Comment on above:Performed By: #### MG, CMP, TSH, T7, BNP #### [facility] [address] [address] [address] Glenys Low #5.2 103/ulNormal1.4-6.5The [facility] HospitalComment on above:Performed By: #### MG, CMP, TSH, T7, BNP #### [facility] [address] [place] [address] Dr. Glenys Dentonutrophils/100 WBC (Bld)69.0 %Ugbqtr33.0-75.0The [facility] HospitalComment on above:Performed By: #### MG, CMP, TSH, T7, BNP #### [facility] [address] [place] [address] Dr. Glenys HollyPlatelet mean volume (Bld) [Entitic vol]11.2 fLNormal9.5-13.5The [facility] HospitalComment on above:Performed By: #### MG, CMP, TSH, T7, BNP #### [facility] [address] [place] [address] Dr. Glenys HollyPLT349 103/ibLhlqjt614-776Uuc [facility] HospitalComment on above: Performed By: #### MG, CMP, TSH, T7, BNP #### [facility] [address] [place] [address] Dr. Glenys HollyRBC4.88 106/ulNormal4.20-5.40The [facility] HospitalComment on above:Performed By: #### MG, CMP, TSH, T7, BNP #### [facility] [address] [place] [address] Dr. Glenys HollyWBC7.6 103/ulNormal4.0-11.0The [facility] HospitalComment on above: Performed By: #### MG, CMP, TSH, T7, BNP #### [facility] [address] [place] [address] Dr. Glenys King 14(COMP METB)on 48-34-8067Qcwrnqj [Mass/Vol]3.3 g/dL Critically low3.4-5.0The [facility] HospitalComment on above:Performed By: #### HSTROPN, BNP, CMP ####[facility] [address] [address]Dr. Yilan ChangAlbumin/Globulin [Mass ratio]1.1 {ratio}NormalThe [facility] HospitalComment on above:Performed By: #### HSTROPN, BNP, CMP ####[facility] [address] [address]Dr. Yilan ChangALP [Catalytic activity/Vol]78 U/LTrfhex36-220Dny [facility] Comment on above:Performed By: #### HSTROPN, BNP, CMP ####[facility] [address] [place], [place] [address]Dr. Yilan ChangALT [Catalytic activity/Vol]10 U/LCritically grg92-28Euk [facility] HospitalComment on above: Performed By: #### HSTROPN, BNP, CMP ####[facility] [address] [place], [place] [address]Dr. Yilan ChangAnion gap [Moles/Vol]11.2 mmol/L NormalThe [facility] HospitalComment on above:Performed By: #### HSTROPN, BNP, CMP ####[facility] [address] [place], [place] [address]Dr. Yilan ChangAST [Catalytic activity/Vol]15 U/LSiykpf78-61RjeMercy Health St. [facility] Hospital Comment on above:Performed By: #### HSTROPN, BNP, CMP ####[facility] [address] [place], [place] [address]Dr. Yilan ChangBilirubin [Mass/Vol]0.4 mg/dLNormal0.2-1.0The [facility] HospitalComment on above:Performed By: #### HSTROPN, BNP, CMP ####[facility] [address] [place], [place] [address]Dr. Yilan ChangCalcium [Mass/Vol]8.9 mg/dLNormal 8.5-10.1The [facility] HospitalComment on above:Performed By: #### HSTROPN, BNP, CMP ####[facility] [address] [address]Dr. Yilan ChangChloride [Moles/Vol]98 mmol/GWtgyin16-150Zvd [facility] HospitalComment on above:Performed By: #### HSTROPN, BNP, CMP ####[facility] [address] [address]Dr. Yilan ChangCO2 [Moles/Vol] 31.1 mmol/VUxkdah09.0-32.0The [facility] HospitalComment on above:Performed By: #### HSTROPN, BNP, CMP ####[facility] [address] [place] [address]Dr. Yilan ChangCreatinine [Mass/Vol]1.15 mg/dL Critically high0.55-1.02The [facility] HospitalComment on above:Performed By: #### HSTROPN, BNP, CMP ####[facility] [address] [place], [place] [address]Dr. Yilan ChangEGFR-AF QEMHBGZI20 mL/min/1.73m2 Critically low>=60[facility] Anne HospitalComment on above:Performed By: #### HSTROPN, BNP, CMP ####[facility] [address] [place], [place] [address]Dr. Yilan ChangEGFR-NON AF CZEMTJCE38 mL/min/1.60t8Zheqywxxgv low>=60 The [facility] HospitalComment on above:Performed By: #### HSTROPN, BNP, CMP ####[facility] [address] [place], [place] [address]Dr. Yilan ChangGlobulin (S) [Mass/Vol]3.0 g/dLNormalThe [facility] HospitalComment on above:Performed By: #### HSTROPN, BNP, CMP ####[facility] [address] [place], [place] [address]Dr. Yilan ChangGlucose [Mass/Vol]107 mg/dL Critically ndpw50-128Qsp [facility] HospitalComment on above:Performed By: #### HSTROPN, BNP, CMP ####[facility] [address] [address]Dr. Yilan ChangPotassium [Moles/Vol]3.3 mmol/LCritically low3.5-5.1The [facility] HospitalComment on above:Performed By: #### HSTROPN, BNP, CMP ####[facility] [address] [address]Dr. Yilan ChangProtein [Mass/Vol]6.3 g/dLCritically low6.4-8.2The [facility] Comment on above:Performed By: #### HSTROPN, BNP, CMP ####[facility] [address] [address]Dr. Yilan ChangSodium [Moles/Vol]137 mmol/YEbolxq758-489Cnn [facility] HospitalComment on above: Performed By: #### HSTROPN, BNP, CMP ####[facility] [address] [address]Dr. Yilan ChangUrea nitrogen [Mass/Vol]29.0 mg/dL Critically high7.0-18.0The [facility] HospitalComment on above:Performed By: #### HSTROPN, BNP, CMP ####[facility] [address] [address]Dr. Yilan ChangUrea nitrogen/Creatinine [Mass ratio]25.2 mg/mgNormal The [facility] HospitalComment on above:Performed By: #### HSTROPN, BNP, CMP ####[facility] [address] [address]Dr. Yilan ChangTROPONIN, HIGH SENSITIVITYon 09-33-0005NDXRSQ82.5 pg/mLNormal4.0-51.3 The [facility] HospitalComment on above:Result Comment: CUT-OFF POINTS HAVE BEEN ESTABLISHED BASED ON THE FOURTH UNIVERSAL DEFINITIONS OF MYOCARDIAL INFARCTION. THE UPPER REFERENCE LIMIT (URL) OF TROPONIN, DEFINED THE 99TH PERCENTILE OF cTnI DISTRIBUTION IN A REFERENCE POPULATION, HAS BEEN CONFIRMED THE DECISION THRESHOLD FOR [place] DIAGNOSIS.Performed By: #### HSTROPN, BNP, CMP ####[facility] [address] [address]Dr. Glenys HollyXR CHEST 2 Von 85-33-8417LU CHEST 2 VEXAMINATION: XR CHEST 2 V HISTORY: SHORTNESS OF BREATH COMPARISON: [...] Electronically authenticated by: RAMIRO SPENCER Date: 2022-05-10 08:[address] [place], [place] [address]BNPon 56-17-3087Ypfguhpejsq peptide B (Bld) [Mass/Vol]1975.0 pg/mLCritically high<=1,800.0The [facility] HospitalComment on above:Performed By: #### MG, CMP, TSH, T7, BNP #### [facility] [address] [address] [address] Glenys LealC AUTO DIFFon 75-68-6043WCHF #0.0 103/ulNormal0.0-0.1The [facility] HospitalComment on above:Performed By: #### MG, CMP, TSH, T7, BNP #### [facility] [address] [address] [address] Glenys HollyBasophils/100 WBC (Bld)0.4 %Normal0.2-2.0The [facility] Comment on above:Performed By: #### MG, CMP, TSH, T7, BNP #### [facility] [address] [address] [address] Glenys Araujo #0.0 103/ulNormal0.0-0.7The [facility] HospitalComment on above: Performed By: #### MG, CMP, TSH, T7, BNP #### [facility] [address] [address] [address] Glenys Valenzuelaosinophils/100 WBC (Bld)0.0 %Critically low0.9-7.0The [facility] HospitalComment on above:Performed By: #### MG, CMP, TSH, T7, BNP #### [facility] [address] [address] [address] Glenys Valenzuelarythrocyte distribution width (RBC) [Ratio]15.2 %Critically high 11.0-15.0The [facility] HospitalComment on above:Performed By: #### MG, CMP, TSH, T7, BNP #### [facility] [address] [place] [address] Dr. Glenys HollyHematocrit (Bld) [Volume fraction]41.7 %Wekmca31.0-48.0The [facility] HospitalComment on above:Performed By: #### MG, CMP, TSH, T7, BNP #### [facility] [address] [place] [address] Dr. Glenys HollyHemoglobin (Bld) [Mass/Vol]14.1 g/eZKciwwo35.0-16.0The [facility] HospitalComment on above:Performed By: #### MG, CMP, TSH, T7, BNP #### [facility] [address] [place] [address] Dr. Glenys Couch #0.12 10e3/ulCritically high0.00-0.03The [facility] Comment on above:Performed By: #### MG, CMP, TSH, T7, BNP #### [facility] [address] [place] [address] Dr. Glenys Couch %1.2 %Critically high0.0-0.5The [facility] HospitalComment on above:Performed By: #### MG, CMP, TSH, T7, BNP #### [facility] [address] [place] [address] Dr. Glenys Lopez #1.6 103/ulNormal1.2-3.8The [facility] HospitalComment on above:Performed By: #### MG, CMP, TSH, T7, BNP #### [facility] [address] [place] [address] Dr. Glenys Nguyenmphocytes/100 WBC (Bld)16.0 %Critically low20.5-60.0The [facility] HospitalComment on above:Performed By: #### MG, CMP, TSH, T7, BNP #### [facility] [address] [place] [address] Dr. Glenys Kelley DIFF REQNONormalThe [facility] HospitalComment on above: Performed By: #### MG, CMP, TSH, T7, BNP #### [facility] [address] [place] [address] Dr. Glenys Dye (RBC) [Entitic mass]30.0 vpUqjacx56.7-34.0The [facility] HospitalComment on above:Performed By: #### MG, CMP, TSH, T7, BNP #### [facility] [address] [place] [address] Dr. Glenys Dye (RBC) [Mass/Vol]33.8 g/yMJxgppk94.9-35.2The [facility] HospitalComment on above:Performed By: #### MG, CMP, TSH, T7, BNP #### [facility] [address] [place] [address] Dr. Glenys Mccarthy (RBC) [Entitic vol]88.7 vIQrhnas99.0-99.0The [facility] HospitalComment on above:Performed By: #### MG, CMP, TSH, T7, BNP #### [facility] [address] [place] [address] Dr. Glenys Duenas #1.3 103/ulCritically high0.3-0.8The [facility] Comment on above:Performed By: #### MG, CMP, TSH, T7, BNP #### [facility] [address] [place] [address] Dr. Glenys Hughesocytes/100 WBC (Bld)13.2 %Critically high1.7-12.0The [facility] HospitalComment on above:Performed By: #### MG, CMP, TSH, T7, BNP #### [facility] [address] [place] [address] Dr. Glenys Low #6.8 103/ulCritically high1.4-6.5The [facility] Comment on above:Performed By: #### MG, CMP, TSH, T7, BNP #### [facility] [address] [place] [address] Dr. Glenys Dentonutrophils/100 WBC (Bld)69.2 %Uztphb74.0-75.0The [facility] HospitalComment on above:Performed By: #### MG, CMP, TSH, T7, BNP #### [facility] [address] [place] [address] Dr. Glenys Garnett mean volume (Bld) [Entitic vol]11.6 fLNormal9.5-13.5The [facility] HospitalComment on above:Performed By: #### MG, CMP, TSH, T7, BNP #### [facility] [address] [place] [address] Dr. Glenys HollyPLT329 103/dcRfrkfo670-302Roq [facility] HospitalComment on above: Performed By: #### MG, CMP, TSH, T7, BNP #### [facility] [address] [place] [address] Dr. Glenys HollyRBC4.70 106/ulNormal4.20-5.40The [facility] HospitalComment on above:Performed By: #### MG, CMP, TSH, T7, BNP #### [facility] [address] [place] [address] Dr. Glenys HollyWBC9.9 103/ulNormal4.0-11.0The [facility] HospitalComment on above: Performed By: #### MG, CMP, TSH, T7, BNP #### [facility] [address] [place] [address] Dr. Glenys King 14(COMP METB)on 22-24-8028Lkkbtyo [Mass/Vol]3.0 g/dL Critically low3.4-5.0The [facility] HospitalComment on above:Performed By: #### MG, CMP, TSH, T7, BNP #### [facility] [address] [place] [address] Dr. Glenys HollyAlbumin/Globulin [Mass ratio]1.1 {ratio}NormalThe [facility]ja [facility] Centerment on above:Performed By: #### MG, CMP, TSH, T7, BNP #### [facility] [address] [place] [address] Dr. Glenys Justin [Catalytic activity/Vol]78 U/EEbblfc62-778Wca [facility] HospitalComment on above:Performed By: #### MG, CMP, TSH, T7, BNP #### [facility] [address] [place] [address] Dr. Glenys Gifford [Catalytic activity/Vol]10 U/LCritically ara17-38Bmd [facility] HospitalComment on above:Performed By: #### MG, CMP, TSH, T7, BNP #### [facility] [address] [place] [address] Dr. Glenys Escamillaon gap [Moles/Vol]9.6 mmol/LNormalThe [facility] HospitalComment on above:Performed By: #### MG, CMP, TSH, T7, BNP #### [facility] [address] [place] [address] Dr. Glenys Tolentino [Catalytic activity/Vol]18 U/NBvdqgx65-98Tce [facility] Centerment on above:Performed By: #### MG, CMP, TSH, T7, BNP #### [facility] [address] [place] [address] Dr. Glenys HollyBilirubin [Mass/Vol]0.3 mg/dLNormal0.2-1.0The [facility] Comment on above:Performed By: #### MG, CMP, TSH, T7, BNP #### [facility] [address] [place] [address] Dr. Glenys HollyCalcium [Mass/Vol]9.1 mg/dLNormal8.5-10.1[facility] Comment on above:Performed By: #### MG, CMP, TSH, T7, BNP #### [facility] [address] [place] [address] Dr. Glenys HollyChloride [Moles/Vol]102 mmol/GSkghul65-028Yap [facility] Comment on above:Performed By: #### MG, CMP, TSH, T7, BNP #### [facility] [address] [address] [address] Glenys HollyCO2 [Moles/Vol]30.3 mmol/TKyxxcf17.0-32.0The [facility] Comment on above:Performed By: #### MG, CMP, TSH, T7, BNP #### [facility] [address] [address] [address] Glenys HollyCreatinine [Mass/Vol]0.83 mg/dLNormal0.55-1.02The [facility] HospitalComment on above:Performed By: #### MG, CMP, TSH, T7, BNP #### [facility] [address] [place] [address] Dr. Glenys ValenzuelaGFR-AF EQUATORIAL GUINEAN>60Normal>=60The [facility] HospitalComment on above:Performed By: #### MG, CMP, TSH, T7, BNP #### [facility] [address] [place] [address] Dr. Glenys ValenzuelaGFR-NON AF EQUATORIAL GUINEAN>60Normal>=60The [facility] HospitalComment on above:Performed By: #### MG, CMP, TSH, T7, BNP #### [facility] [address] [place] [address] Dr. Glenys HollyGlobulin (S) [Mass/Vol]2.8 g/dLNormalThe [facility] HospitalComment on above:Performed By: #### MG, CMP, TSH, T7, BNP #### [facility] [address] [address] [address] Glenys HollyGlucose [Mass/Vol]105 mg/pTAedbjc84-145Cpa [facility] Comment on above:Performed By: #### MG, CMP, TSH, T7, BNP #### [facility] [address] [address] [address] Glenys HollyPotassium [Moles/Vol]2.9 mmol/LCritically low3.5-5.1The [facility] HospitalComment on above:Performed By: #### MG, CMP, TSH, T7, BNP #### [facility] [address] [place] [address] Dr. Glenys HollyProtein [Mass/Vol]5.8 g/dLCritically low6.4-8.2The [facility] HospitalComment on above:Performed By: #### MG, CMP, TSH, T7, BNP #### [facility] [address] [address] [address] Glenys HollySodium [Moles/Vol]138 mmol/CAfgdoo041-010Dew [facility] Comment on above:Performed By: #### MG, CMP, TSH, T7, BNP #### [facility] [address] [place] [address] Dr. Glenys HollyUrea nitrogen [Mass/Vol]21.0 mg/dLCritically high7.0-18.0The [facility] HospitalComment on above:Performed By: #### MG, CMP, TSH, T7, BNP #### [facility] [address] [place] [address] Dr. Glenys Nelson nitrogen/Creatinine [Mass ratio]25.3 mg/mgNormalThe [facility] HospitalComment on above:Performed By: #### MG, CMP, TSH, T7, BNP #### [facility] [address] [place] [address] Dr. Glenys Amin, HIGH SENSITIVITYon 89-83-8035XJEXJW08.8 pg/mLNormal 4.0-51.3The [facility] HospitalComment on above:Result Comment: CUT-OFF POINTS HAVE BEEN ESTABLISHED BASED ON THE FOURTH UNIVERSAL DEFINITIONS OF MYOCARDIAL INFARCTION. THE UPPER REFERENCE LIMIT (URL) OF TROPONIN, DEFINED THE 99TH PERCENTILE OF cTnI DISTRIBUTION IN A REFERENCE POPULATION, HAS BEEN CONFIRMED THE DECISION THRESHOLD FOR [place] DIAGNOSIS.Performed By: #### MG, CMP, TSH, T7, BNP #### [facility] [address] [place] [address] Dr. Glenys Esposito 60-77-1732Akopgnamdsa peptide B (Bld) [Mass/Vol]2723.0 pg/mLCritically high<=1,800.0The [facility] HospitalComment on above:Performed By: #### CMP, HSTROPN, BNP ####[facility] [address] [address]Dr. Glenys Lopes AUTO DIFFon 37-98-6070NCKJ #0.0 103/ulNormal0.0-0.1The [facility] HospitalComment on above:Performed By: #### MG, CMP, TSH, T7, BNP #### [facility] [address] [address] [address] Glenys HollyBasophils/100 WBC (Bld)0.2 %Normal0.2-2.0The [facility] Comment on above:Performed By: #### MG, CMP, TSH, T7, BNP #### [facility] [address] [place] [address] Dr. Glenys Araujo #0.0 103/ulNormal0.0-0.7The [facility] HospitalComment on above: Performed By: #### MG, CMP, TSH, T7, BNP #### [facility] [address] [address] [address] Glenys Valenzuelaosinophils/100 WBC (Bld)0.1 %Critically low0.9-7.0The [facility] HospitalComment on above:Performed By: #### MG, CMP, TSH, T7, BNP #### [facility] [address] [address] [address] Glenys Valenzuelarythrocyte distribution width (RBC) [Ratio]15.9 %Critically high 11.0-15.0The [facility] HospitalComment on above:Performed By: #### MG, CMP, TSH, T7, BNP #### [facility] [address] [place] [address] Dr. Glenys HollyHematocrit (Bld) [Volume fraction]38.0 %Enzpcq00.0-48.0The [facility] HospitalComment on above:Performed By: #### MG, CMP, TSH, T7, BNP #### [facility] [address] [place] [address] Dr. Glenys HollyHemoglobin (Bld) [Mass/Vol]12.5 g/bENtilak71.0-16.0The [facility] HospitalComment on above:Performed By: #### MG, CMP, TSH, T7, BNP #### [facility] [address] [place] [address] Dr. Glenys Couch #0.17 10e3/ulCritically high0.00-0.03The [facility] Comment on above:Performed By: #### MG, CMP, TSH, T7, BNP #### [facility] [address] [place] [address] Dr. Glenys Couch %1.1 %Critically high0.0-0.5The [facility] HospitalComment on above:Performed By: #### MG, CMP, TSH, T7, BNP #### [facility] [address] [place] [address] Dr. Glenys Lopez #1.0 103/ulCritically low1.2-3.8The [facility] Comment on above:Performed By: #### MG, CMP, TSH, T7, BNP #### [facility] [address] [place] [address] Dr. Glenys Christopherhocytes/100 WBC (Bld)6.2 %Critically low20.5-60.0[facility] HospitalComment on above:Performed By: #### MG, CMP, TSH, T7, BNP #### [facility] [address] [place] [address] Dr. Glenys JaureguiUAL DIFF REQNONormalThe [facility] HospitalComment on above: Performed By: #### MG, CMP, TSH, T7, BNP #### [facility] [address] [place] [address] Dr. Glenys Wood (RBC) [Entitic mass]30.1 ucIconod34.7-34.0The [facility] HospitalComment on above:Performed By: #### MG, CMP, TSH, T7, BNP #### [facility] [address] [place] [address] Dr. Glenys Dye (RBC) [Mass/Vol]32.9 g/yRCbamct51.9-35.2The [facility] HospitalComment on above:Performed By: #### MG, CMP, TSH, T7, BNP #### [facility] [address] [place] [address] Dr. Glenys yDe (RBC) [Entitic vol]91.6 iYLqxbxq98.0-99.0The [facility] HospitalComment on above:Performed By: #### MG, CMP, TSH, T7, BNP #### [facility] [address] [place] [address] Dr. Glenys Duenas #0.8 103/ulNormal0.3-0.8The [facility] HospitalComment on above:Performed By: #### MG, CMP, TSH, T7, BNP #### [facility] [address] [place] [address] Dr. Glenys Hughesocytes/100 WBC (Bld)5.2 %Normal1.7-12.0[facility] Comment on above:Performed By: #### MG, CMP, TSH, T7, BNP #### [facility] [address] [place] [address] Dr. Glenys Low #14.0 103/ulCritically high1.4-6.5The [facility] Comment on above:Performed By: #### MG, CMP, TSH, T7, BNP #### [facility] [address] [place] [address] Dr. Glenys Dentonutrophils/100 WBC (Bld)87.2 %Critically high43.0-75.0The [facility] HospitalComment on above:Performed By: #### MG, CMP, TSH, T7, BNP #### [facility] [address] [place] [address] Dr. Glenys Garnett mean volume (Bld) [Entitic vol]11.7 fLNormal9.5-13.5The [facility] HospitalComment on above:Performed By: #### MG, CMP, TSH, T7, BNP #### [facility] [address] [place] [address] Dr. Glenys HollyPLT285 103/zcOexzkq222-209Stq [facility] HospitalComment on above: Performed By: #### MG, CMP, TSH, T7, BNP #### [facility] [address] [place] [address] Dr. Glenys HollyRBC4.15 106/ulCritically low4.20-5.40The [facility] HospitalComment on above:Performed By: #### MG, CMP, TSH, T7, BNP #### [facility] [address] [place] [address] Dr. Glenys HollyWBC16.0 103/ulCritically high4.0-11.0The [facility] HospitalComment on above:Performed By: #### MG, CMP, TSH, T7, BNP #### [facility] [address] [place] [address] Dr. Glenys KuhnF 14(COMP METB)on 95-25-7572Lowxufm [Mass/Vol]2.7 g/dL Critically low3.4-5.0The [facility] HospitalComment on above:Performed By: #### CMP, HSTROPN, BNP #### [facility] [address] [place] [address] Dr. Glenys HollyAlbumin/Globulin [Mass ratio]1.0 {ratio}NormalThe [facility] HospitalComment on above:Performed By: #### CMP, HSTROPN, BNP #### [facility] [address] [place] [address] Dr. Glenys Justin [Catalytic activity/Vol]73 U/CZxyiem26-774Pzk [facility] HospitalComment on above:Performed By: #### CMP, HSTROPN, BNP #### [facility] [address] [place] [address] Dr. Glenys Gifford [Catalytic activity/Vol]11 U/LCritically mpi36-54Bik [facility] HospitalComment on above:Performed By: #### CMP, HSTROPN, BNP #### [facility] [address] [place] [address] Dr. Glenys Medina gap [Moles/Vol]10.5 mmol/LNormalMercy Health [facility] Comment on above:Performed By: #### CMP, HSTROPN, BNP #### [facility] [address] [address] [address] Glenys HollyAST [Catalytic activity/Vol]21 U/JYxgfgp10-25Qtr [facility] HospitalComment on above:Performed By: #### CMP, HSTROPN, BNP #### [facility] [address] [place] [address] Dr. Glenys HollyBilirubin [Mass/Vol]0.3 mg/dLNormal0.2-1.0The [facility] Comment on above:Performed By: #### CMP, HSTROPN, BNP #### [facility] [address] [place] [address] Dr. Glenys HollyCalcium [Mass/Vol]8.6 mg/dLNormal8.5-10.1[facility] Comment on above:Performed By: #### CMP, HSTROPN, BNP #### [facility] [address] [place] [address] Dr. Glenys HollyChloride [Moles/Vol]106 mmol/OAsiugo81-298Rze [facility] Comment on above:Performed By: #### CMP, HSTROPN, BNP #### [facility] [address] [place] [address] Dr. Glenys HollyCO2 [Moles/Vol]29.0 mmol/OOvojzq34.0-32.0The [facility] Comment on above:Performed By: #### CMP, HSTROPN, BNP #### [facility] [address] [place] [address] Dr. Glenys HollyCreatinine [Mass/Vol]0.88 mg/dLNormal0.55-1.02The [facility] HospitalComment on above:Performed By: #### CMP, HSTROPN, BNP #### [facility] [address] [place] [address] Dr. Veronica ChangEGFR-AF EQUATORIAL GUINEAN>60Normal>=60The [facility] HospitalComment on above:Performed By: #### CMP, HSTROPN, BNP #### [facility] [address] [place] [address] Dr. Glenys Solares-NON AF EQUATORIAL GUINEAN>60Normal>=60The [facility] HospitalComment on above:Performed By: #### CMP, HSTROPN, BNP #### [facility] [address] [place] [address] Dr. Glenys HollyGlobulin (S) [Mass/Vol]2.6 g/dLNormalThe [facility] HospitalComment on above:Performed By: #### CMP, HSTROPN, BNP #### [facility] [address] [place] [address] Dr. Glenys HolylGlucose [Mass/Vol]116 mg/dLCritically gene36-267Ofm [facility] HospitalComment on above:Performed By: #### CMP, HSTROPN, BNP #### [facility] [address] [place] [address] Dr. Glenys HollyPotassium [Moles/Vol]3.5 mmol/LNormal3.5-5.1The [facility] Comment on above:Performed By: #### CMP, HSTROPN, BNP #### [facility] [address] [place] [address] Dr. Glenys HollyProtein [Mass/Vol]5.3 g/dLCritically low6.4-8.2The [facility] HospitalComment on above:Performed By: #### CMP, HSTROPN, BNP #### [facility] [address] [place] [address] Dr. Glenys HollySodium [Moles/Vol]142 mmol/AFiyghz779-852Fjg [facility] Comment on above:Performed By: #### CMP, HSTROPN, BNP #### [facility] [address] [place] [address] Dr. Glenys HollyUrea nitrogen [Mass/Vol]23.0 mg/dLCritically high7.0-18.0The [facility] HospitalComment on above:Performed By: #### CMP, HSTROPN, BNP #### [facility] [address] [address] [address] Glenys Nelson nitrogen/Creatinine [Mass ratio]26.1 mg/mgNormalThe [facility] HospitalComment on above:Performed By: #### CMP, HSTROPN, BNP #### [facility] [address] [address] [address] Glenys Amin, HIGH SENSITIVITYon 96-01-0678JRATCN86.8 pg/mLCritically high4.0-51.3The [facility] HospitalComment on above:Result Comment: CUT-OFF POINTS HAVE BEEN ESTABLISHED BASED ON THE FOURTH UNIVERSAL DEFINITIONS OF MYOCARDIAL INFARCTION. THE UPPER REFERENCE LIMIT (URL) OF TROPONIN, DEFINED THE 99TH PERCENTILE OF cTnI DISTRIBUTION IN A REFERENCE POPULATION, HAS BEEN CONFIRMED THE DECISION THRESHOLD FOR [place] DIAGNOSIS.Performed By: #### CMP, HSTROPN, BNP ####[facility] [address] [address]Dr. Glenys Esposito 65-07-7453Ewdyzqrkmdb peptide B (Bld) [Mass/Vol]1476.0 pg/mLNormal<=1,800.0The [facility] HospitalComment on above:Performed By: #### CMP, HSTROPN, BNP ####[facility] [address] [address]Dr. Glenys LealC AUTO DIFFon [id number] #0.0 103/ulNormal0.0-0.1The [facility] HospitalComment on above:Performed By: #### MG, CMP, TSH, T7, BNP #### [facility] [address] [address] [address] Glenys Garrettsophils/100 WBC (Bld)0.1 %Critically low0.2-2.0The [facility] HospitalComment on above:Performed By: #### MG, CMP, TSH, T7, BNP #### [facility] [address] [place] [address] Dr. Glenys Araujo #0.0 103/ulNormal0.0-0.7The [facility] HospitalComment on above: Performed By: #### MG, CMP, TSH, T7, BNP #### [facility] [address] [place] [address] Dr. Glenys Valenzuelaosinophils/100 WBC (Bld)0.0 %Critically low0.9-7.0The [facility] HospitalComment on above:Performed By: #### MG, CMP, TSH, T7, BNP #### [facility] [address] [place] [address] Dr. Glenys Valenzuelarythrocyte distribution width (RBC) [Ratio]16.3 %Critically high 11.0-15.0The [facility] HospitalComment on above:Performed By: #### MG, CMP, TSH, T7, BNP #### [facility] [address] [place] [address] Dr. Glenys HollyHematocrit (Bld) [Volume fraction]34.1 %Critically low36.0-48.0 The [facility] HospitalComment on above:Performed By: #### MG, CMP, TSH, T7, BNP #### [facility] [address] [place] [address] Dr. Glenys HollyHemoglobin (Bld) [Mass/Vol]11.2 g/dLCritically low12.0-16.0The [facility] HospitalComment on above:Performed By: #### MG, CMP, TSH, T7, BNP #### [facility] [address] [place] [address] Dr. Glenys Couch #0.22 10e3/ulCritically high0.00-0.03The [facility] Comment on above:Performed By: #### MG, CMP, TSH, T7, BNP #### [facility] [address] [place] [address] Dr. Glenys Couch %1.0 %Critically high0.0-0.5The [facility] HospitalComment on above:Performed By: #### MG, CMP, TSH, T7, BNP #### [facility] [address] [place] [address] Dr. Glenys Lopez #1.3 103/ulNormal1.2-3.8The [facility] HospitalComment on above:Performed By: #### MG, CMP, TSH, T7, BNP #### [facility] [address] [place] [address] Dr. Glenys Nguyenmphocytes/100 WBC (Bld)6.0 %Critically low20.5-60.0The [facility] HospitalComment on above:Performed By: #### MG, CMP, TSH, T7, BNP #### [facility] [address] [place] [address] Dr. Glenys Kelley DIFF REQNONormalThe [facility] HospitalComment on above: Performed By: #### MG, CMP, TSH, T7, BNP #### [facility] [address] [place] [address] Dr. Glenys Dye (RBC) [Entitic mass]30.7 mwLagzto69.7-34.0The [facility] HospitalComment on above:Performed By: #### MG, CMP, TSH, T7, BNP #### [facility] [address] [place] [address] Dr. Glenys Dye (RBC) [Mass/Vol]32.8 g/pCJpulmr27.9-35.2The [facility] HospitalComment on above:Performed By: #### MG, CMP, TSH, T7, BNP #### [facility] [address] [place] [address] Dr. Glenys Dye (RBC) [Entitic vol]93.4 oXWwktes76.0-99.0The [facility] HospitalComment on above:Performed By: #### MG, CMP, TSH, T7, BNP #### [facility] [address] [place] [address] Dr. Glenys Duenas #1.1 103/ulCritically high0.3-0.8The [facility] Comment on above:Performed By: #### MG, CMP, TSH, T7, BNP #### [facility] [address] [place] [address] Dr. Glenys Hughesocytes/100 WBC (Bld)4.8 %Normal1.7-12.0The [facility] Comment on above:Performed By: #### MG, CMP, TSH, T7, BNP #### [facility] [address] [place] [address] Dr. Glenys Low #19.4 103/ulCritically high1.4-6.5The [facility] Comment on above:Performed By: #### MG, CMP, TSH, T7, BNP #### [facility] [address] [address] [address] Glenys Dentonutrophils/100 WBC (Bld)88.1 %Critically high43.0-75.0The [facility] HospitalComment on above:Performed By: #### MG, CMP, TSH, T7, BNP #### [facility] [address] [place] [address] Dr. Glenys HollyPlatelet mean volume (Bld) [Entitic vol]11.6 fLNormal9.5-13.5The [facility] HospitalComment on above:Performed By: #### MG, CMP, TSH, T7, BNP #### [facility] [address] [place] [address] Dr. Glenys HollyPLT309 103/etKsybml506-655Puc [facility] HospitalComment on above: Performed By: #### MG, CMP, TSH, T7, BNP #### [facility] [address] [place] [address] Dr. Glenys HollyRBC3.65 106/ulCritically low4.20-5.40The [facility] HospitalComment on above:Performed By: #### MG, CMP, TSH, T7, BNP #### [facility] [address] [place] [address] Dr. Glenys HollyWBC22.0 103/ulCritically high4.0-11.0The [facility] HospitalComment on above:Performed By: #### MG, CMP, TSH, T7, BNP #### [facility] [address] [place] [address] Dr. Glenys HollyPROF 14(COMP METB)on 47-44-4130Aezdxzj [Mass/Vol]2.5 g/dL Critically low3.4-5.0The [facility] HospitalComment on above:Performed By: #### CMP, HSTROPN, BNP ####[facility] [address] [address]Dr. Yilan ChangAlbumin/Globulin [Mass ratio]1.0 {ratio}NormalThe [facility] HospitalComment on above:Performed By: #### CMP, HSTROPN, BNP ####[facility] [address] [address]Dr. Yilan ChangALP [Catalytic activity/Vol]69 U/WDnhdmn27-958Srl [facility] Comment on above:Performed By: #### CMP, HSTROPN, BNP ####[facility] [address] [place], [place] [address]Dr. Yilan ChangALT [Catalytic activity/Vol]12 U/LCritically mlw70-56Dzb [facility] HospitalComment on above: Performed By: #### CMP, HSTROPN, BNP ####[facility] Ok[address] [place], [place] [address]Dr. Yilan ChangAnion gap [Moles/Vol]10.9 mmol/L NormalThe [facility] HospitalComment on above:Performed By: #### CMP, HSTROPN, BNP ####[facility] [address] [address]Dr. Yilan ChangAST [Catalytic activity/Vol]25 U/IHmjhju73-42Beb [facility] Comment on above:Performed By: #### CMP, HSTROPN, BNP ####[facility] [address] [address]Dr. Yilan ChangBilirubin [Mass/Vol]0.1 mg/dLCritically low0.2-1.0The [facility] HospitalComment on above: Performed By: #### CMP, HSTROPN, BNP ####[facility] [address] [place], [place] [address]Dr. Yilan ChangCalcium [Mass/Vol]9.1 mg/dLNormal 8.5-10.1The [facility] Centerment on above:Performed By: #### CMP, HSTROPN, BNP ####[facility] [address] [address]Dr. Yilan ChangChloride [Moles/Vol]110 mmol/LCritically lmtk14-046Tqi [facility] HospitalCom[facility] on above:Performed By: #### CMP, HSTROPN, BNP ####[facility] [address] [address]Dr. Yilan ChangCO2 [Moles/Vol]24.8 mmol/FWxxbia41.0-32.0The [facility] HospitalComment on above: Performed By: #### CMP, HSTROPN, BNP ####[facility] [address] [address]Dr. Yilan ChangCreatinine [Mass/Vol]0.87 mg/dL Normal0.55-1.02The [facility] on above:Performed By: #### CMP, HSTROPN, BNP ####[facility] [address] [place], [place] [address]Dr. Yilan ChangEGFR-AF EQUATORIAL GUINEAN>60Normal>=60The [facility] on above:Performed By: #### CMP, HSTROPN, BNP ####[facility] [address] [address]Dr. Yilan ChangEGFR-NON AF EQUATORIAL GUINEAN>60Normal >=60The [facility] on above:Performed By: #### CMP, HSTROPN, BNP ####[facility] [address] [place], [place] [address]Dr. Yilan ChangGlobulin (S) [Mass/Vol]2.5 g/dLNormalThe [facility] HospitalCom[facility] on above:Performed By: #### CMP, HSTROPN, BNP ####[facility] [address] [address]Dr. Yilan ChangGlucose [Mass/Vol]128 mg/dL Critically ihqa68-994Ysg [facility] on above:Performed By: #### CMP, HSTROPN, BNP ####[facility] [address] [address]Dr. Yilan ChangPotassium [Moles/Vol]4.7 mmol/LNormal3.5-5.1The [facility] HospitalComment on above:Performed By: #### CMP, HSTROPN, BNP ####[facility] [address] [address]Dr. Yilan ChangProtein [Mass/Vol]5.0 g/dLCritically low6.4-8.2The [facility] Comment on above:Performed By: #### CMP, HSTROPN, BNP ####[facility] [address] [address]Dr. Yilan ChangSodium [Moles/Vol]141 mmol/YBayulz837-893Ful [facility] HospitalComment on above: Performed By: #### CMP, HSTROPN, BNP ####[facility] [address] [address]Dr. Yilan ChangUrea nitrogen [Mass/Vol]28.0 mg/dL Critically high7.0-18.0The [facility] HospitalComment on above:Performed By: #### CMP, HSTROPN, BNP ####[facility] [address] [address]Dr. Yilan ChangUrea nitrogen/Creatinine [Mass ratio]32.2 mg/mgNormal The [facility] HospitalComment on above:Performed By: #### CMP, HSTROPN, BNP ####[facility] [address] [address]Dr. Yilan ChangTROPONIN, HIGH SENSITIVITYon 71-68-2806TWTIVG62.5 pg/mLCritically high4.0-51.3The [facility] HospitalComment on above:Result Comment: CUT-OFF POINTS HAVE BEEN ESTABLISHED BASED ON THE FOURTH UNIVERSAL DEFINITIONS OF MYOCARDIAL INFARCTION. THE UPPER REFERENCE LIMIT (URL) OF TROPONIN, DEFINED THE 99TH PERCENTILE OF cTnI DISTRIBUTION IN A REFERENCE POPULATION, HAS BEEN CONFIRMED THE DECISION THRESHOLD FOR [place] DIAGNOSIS.Performed By: #### CMP, HSTROPN, BNP ####[facility] [address] [id number] HollyXR CHEST 2 Von 33-26-6041CZ CHEST 2 VXR CHEST 2 V CLINICAL: SHORTNESS OF BREATH [...] Electronically authenticated by: SUPA DEAN Date: 2022-05-07 10:[address] [place], [place] [id number] [id number] peptide B (Bld) [Mass/Vol]1143.0 pg/mLNormal<=1,800.0The [facility] HospitalComment on above:Performed By: #### CMP, BNP ####[facility] [address] [id number]. Glenys LealC AUTO DIFFon 63-45-7276VQBC #0.0 103/ulNormal0.0-0.1The [facility] HospitalComment on above:Performed By: #### MG, CMP, TSH, T7, BNP #### [facility] [address] [address] [address] Glenys HollyBasophils/100 WBC (Bld)0.1 %Critically low0.2-2.0The [facility] HospitalComment on above:Performed By: #### MG, CMP, TSH, T7, BNP #### [facility] [address] [address] [address] Glenys Araujo #0.0 103/ulNormal0.0-0.7The [facility] HospitalComment on above: Performed By: #### MG, CMP, TSH, T7, BNP #### [facility] [address] [place] [address] Dr. Glenys Valenzuelaosinophils/100 WBC (Bld)0.0 %Critically low0.9-7.0The [facility] HospitalComment on above:Performed By: #### MG, CMP, TSH, T7, BNP #### [facility] [address] [address] [address] Glenys Valenzuelarythrocyte distribution width (RBC) [Ratio]15.8 %Critically high 11.0-15.0The [facility] HospitalComment on above:Performed By: #### MG, CMP, TSH, T7, BNP #### [facility] [address] [place] [address] Dr. Glenys HollyHematocrit (Bld) [Volume fraction]36.7 %Iyndbz85.0-48.0The [facility] HospitalComment on above:Performed By: #### MG, CMP, TSH, T7, BNP #### [facility] [address] [place] [address] Dr. Glenys HollyHemoglobin (Bld) [Mass/Vol]12.3 g/jRLhxdqp43.0-16.0The [facility] HospitalComment on above:Performed By: #### MG, CMP, TSH, T7, BNP #### [facility] [address] [place] [address] Dr. Glenys Couch #0.10 10e3/ulCritically high0.00-0.03The [facility] Comment on above:Performed By: #### MG, CMP, TSH, T7, BNP #### [facility] [address] [place] [address] Dr. Glenys Couch %0.5 %Normal0.0-0.5The [facility] HospitalComment on above: Performed By: #### MG, CMP, TSH, T7, BNP #### [facility] [address] [place] [address] Dr. Glenys Lopez #1.4 103/ulNormal1.2-3.8The [facility] HospitalComment on above:Performed By: #### MG, CMP, TSH, T7, BNP #### [facility] [address] [place] [address] Dr. Glenys Nguyenmphocytes/100 WBC (Bld)7.2 %Critically low20.5-60.0The [facility] HospitalComment on above:Performed By: #### MG, CMP, TSH, T7, BNP #### [facility] [address] [place] [address] Dr. Glenys Kelley DIFF REQNONormalThe [facility] HospitalComment on above: Performed By: #### MG, CMP, TSH, T7, BNP #### [facility] [address] [place] [address] Dr. Glenys Dye (RBC) [Entitic mass]30.9 teRfrwux13.7-34.0The [facility] HospitalComment on above:Performed By: #### MG, CMP, TSH, T7, BNP #### [facility] [address] [place] [address] Dr. Glenys Dye (RBC) [Mass/Vol]33.5 g/jAYttcfe04.9-35.2The [facility] HospitalComment on above:Performed By: #### MG, CMP, TSH, T7, BNP #### [facility] [address] [place] [address] Dr. Glenys Dye (RBC) [Entitic vol]92.2 sJXbmdxm62.0-99.0The [facility] HospitalComment on above:Performed By: #### MG, CMP, TSH, T7, BNP #### [facility] [address] [place] [address] Dr. Glenys Duenas #0.9 103/ulCritically high0.3-0.8The [facility] Comment on above:Performed By: #### MG, CMP, TSH, T7, BNP #### [facility] [address] [place] [address] Dr. Glenys Hughesocytes/100 WBC (Bld)4.6 %Normal1.7-12.0The [facility] Comment on above:Performed By: #### MG, CMP, TSH, T7, BNP #### [facility] [address] [place] [address] Dr. Glenys Low #17.4 103/ulCritically high1.4-6.5The [facility] Comment on above:Performed By: #### MG, CMP, TSH, T7, BNP #### [facility] [address] [place] [address] Dr. Glenys Dentonutrophils/100 WBC (Bld)87.6 %Critically high43.0-75.0The [facility] HospitalComment on above:Performed By: #### MG, CMP, TSH, T7, BNP #### [facility] [address] [place] [address] Dr. Glenys HollyPlatelet mean volume (Bld) [Entitic vol]11.2 fLNormal9.5-13.5The [facility] HospitalComment on above:Performed By: #### MG, CMP, TSH, T7, BNP #### [facility] [address] [place] [address] Dr. Glenys HollyPLT310 103/xxKmszoh711-661Zix [facility] HospitalComment on above: Performed By: #### MG, CMP, TSH, T7, BNP #### [facility] [address] [place] [address] Dr. Glenys HollyRBC3.98 106/ulCritically low4.20-5.40The [facility] HospitalComment on above:Performed By: #### MG, CMP, TSH, T7, BNP #### [facility] [address] [place] [address] Dr. Glenys HollyWBC19.8 103/ulCritically high4.0-11.0The [facility] HospitalComment on above:Performed By: #### MG, CMP, TSH, T7, BNP #### [facility] [address] [place] [address] Dr. Glenys HollyLACTATE/LACTIC ACIDon 78-34-5442Edlzman [Moles/Vol]1.1 mmol/L Normal0.4-1.9The [facility] HospitalComment on above:Performed By: #### MG, CMP, TSH, T7, BNP #### [facility] [address] [address] [address] Glenys HollyCARPENTER OF CARE GLUCOSEon 88-20-0800Ngmiidh [Mass/Vol]164 mg/dL Critically mpps09-558Hrm [facility] HospitalComment on above:Performed By: #### MG, CMP, TSH, T7, BNP #### [facility] [address] [address] [address] Glenys HollyPROF 14(COMP METB)on 71-50-8639Nukymjr [Mass/Vol]2.6 g/dL Critically low3.4-5.0The [facility] HospitalComment on above:Performed By: #### CMP, BNP ####[facility] [address] [address]Dr. Glenys HollyAlbumin/Globulin [Mass ratio]1.0 {ratio}NormalThe [facility] HospitalComment on above:Performed By: #### CMP, BNP ####[facility] [address] [address]Dr. Glenys HollyALP [Catalytic activity/Vol]88 U/XLrrayk63-282Dbx [facility] on above:Performed By: #### CMP, BNP ####[facility] [address] [address]Dr. Glenys HollyALT [Catalytic activity/Vol]1 U/LCritically khd69-49Pls [facility] HospitalComment on above:Performed By: #### CMP, BNP ####[facility] [address] [address]Dr. Glenys HollyAnion gap [Moles/Vol]9.9 mmol/LNormalThe [facility] HospitalComment on above:Performed By: #### CMP, BNP ####[facility] [address] [address]Dr. Glenys ChangAST [Catalytic activity/Vol]19 U/IYazwwr18-53Pun [facility] HospitalComment on above:Performed By: #### CMP, BNP ####[facility] [address] [place], [place] [address]Dr. Yilan Holly Bilirubin [Mass/Vol]0.2 mg/dLNormal0.2-1.0The [facility] HospitalComment on above: Performed By: #### CMP, BNP ####[facility] [address] [place], [place] [address]Dr. Yilan ChangCalcium [Mass/Vol]8.7 mg/dLNormal 8.5-10.1The [facility] HospitalComment on above:Performed By: #### CMP, BNP ####[facility] [address] [place], [place] [address]Dr. Yilan ChangChloride [Moles/Vol]108 mmol/LCritically brxe56-863Ezs [facility] on above:Performed By: #### CMP, BNP ####[facility] [address] [place], [place] [address]Dr. Yilan ChangCO2 [Moles/Vol]25.2 mmol/GJzauld13.0-32.0The [facility] HospitalComment on above: Performed By: #### CMP, BNP ####[facility] [address] [place], [place] [address]Dr. Yilan ChangCreatinine [Mass/Vol]0.80 mg/dLNormal 0.55-1.02The [facility] on above:Performed By: #### CMP, BNP ####[facility] [address] [place], [place] [address]Dr. Yilan ChangEGFR-AF EQUATORIAL GUINEAN>60Normal>=60The [facility] HospitalComment on above: Performed By: #### CMP, BNP ####[facility] [address] [place], [place] [address]Dr. Yilan ChangEGFR-NON AF EQUATORIAL GUINEAN>60Normal>=60The [facility] HospitalComment on above:Performed By: #### CMP, BNP ####[facility] [address] [place], [place] [address]Dr. Yilan Holly Globulin (S) [Mass/Vol]2.7 g/dLNoCommunity Regional Medical CenterComment on above: Performed By: #### CMP, BNP ####[facility] [address] [place], [place] [address]Dr. Yilan ChangGlucose [Mass/Vol]123 mg/dLCritically fsoj67-020Dog [facility] HospitalComment on above:Performed By: #### CMP, BNP ####[facility] [address] [place], [place] [address]Dr. Yilan ChangPotassium [Moles/Vol]4.1 mmol/LNormal3.5-5.1The [facility] Comment on above:Performed By: #### CMP, BNP ####[facility] [address] [place], [place] [address]Dr. Yilan ChangProtein [Mass/Vol]5.3 g/dLCritically low6.4-8.2The [facility] HospitalComment on above: Performed By: #### CMP, BNP ####[facility] [address] [place], [place] [address]Dr. Yilan ChangSodium [Moles/Vol]139 mmol/LNormal 136-145The [facility] HospitalComment on above:Performed By: #### CMP, BNP ####[facility] [address] [place], [place] [address]Dr. Yilan ChangUrea nitrogen [Mass/Vol]22.0 mg/dLCritically high7.0-18.0The [facility] HospitalComment on above:Performed By: #### CMP, BNP ####[facility] [address] [place], [place] [address]Dr. Yilan ChangUrea nitrogen/Creatinine [Mass ratio]27.5 mg/mgNoCommunity Regional Medical CenterComment on above:Performed By: #### CMP, BNP ####[facility] [address] [place], [place] [address]Dr. Yilan ChangT3, TOTAL (TRIIODOTHYRONINE)on 43-50-7157A3, TOTAL69 ng/dLCritically asw29-514Lkn [facility] HospitalComment on above:Performed By: #### MG, CMP, TSH, T7, BNP #### [facility] [address] [place] [address] Dr. Glenys Amin, HIGH SENSITIVITYon 79-36-6645ZFDHEK756.0 pg/mL Critically high4.0-51.3The [facility] Centerment on above:Result Comment: CUT-OFF POINTS HAVE BEEN ESTABLISHED BASED ON THE FOURTH UNIVERSAL DEFINITIONS OF MYOCARDIAL INFARCTION. THE UPPER REFERENCE LIMIT (URL) OF TROPONIN, DEFINED THE 99TH PERCENTILE OF cTnI DISTRIBUTION IN A REFERENCE POPULATION, HAS BEEN CONFIRMED THE DECISION THRESHOLD FOR [place] DIAGNOSIS.Performed By: #### MG, CMP, TSH, T7, BNP #### [facility] [address] [place] [address] Dr. Glenys HollyAMYLASEon 66-29-2840Wwhnczg [Catalytic activity/Vol]26 U/LNormal 25-115The [facility] HospitalComment on above:Performed By: #### MG, CMP, TSH, T7, BNP #### [facility] [address] [place] [address] Dr. Glenys Esposito 85-68-0404Ugnrwmfahfb peptide B (Bld) [Mass/Vol]811.0 pg/mL Normal<=1,800.0The [facility] Centerment on above:Performed By: #### MG, CMP, TSH, T7, BNP #### [facility] [address] [place] [address] Dr. Glenys Torue ADEEL 3-6on 66-08-6674YR [Catalytic activity/Vol]33 U/L Kuyffl03-608Yvv [facility] HospitalComment on above:Performed By: #### CMREP ####[facility] [address] [address]Dr. Glenys Ariza.MB [Mass/Vol]1.13 ng/mLNormal<=3.60The [facility] Centerment on above:Performed By: #### CMREP ####[facility] [address] [address]Dr. Glenys ObrienTROP164.3 pg/mLCritically high 4.0-51.3The [facility] HospitalComment on above:Result Comment: CUT-OFF POINTS HAVE BEEN ESTABLISHED BASED ON THE FOURTH UNIVERSAL DEFINITIONS OF MYOCARDIAL INFARCTION. THE UPPER REFERENCE LIMIT (URL) OF TROPONIN, DEFINED THE 99TH PERCENTILE OF cTnI DISTRIBUTION IN A REFERENCE POPULATION, HAS BEEN CONFIRMED THE DECISION THRESHOLD FOR [place] DIAGNOSIS.Performed By: #### CMREP ####[facility] [address] [address]Dr. Glenys Ariza [Catalytic activity/Vol]38 U/CAktxdm75-453WhaMercy Health St. Anne HospitalComment on above:Performed By: #### MG, CMP, TSH, T7, BNP #### [facility] [address] [address] [address] Glenys Ariza.MB [Mass/Vol]0.91 ng/mLNormal<=3.60[facility] Comment on above:Performed By: #### MG, CMP, TSH, T7, BNP #### [facility] [address] [place] [address] Dr. Glenys Aguilar178.2 pg/mLCritically high4.0-51.3TW[facility] Comment on above:Result Comment: CUT-OFF POINTS HAVE BEEN ESTABLISHED BASED ON THE FOURTH UNIVERSAL DEFINITIONS OF MYOCARDIAL INFARCTION. THE UPPER REFERENCE LIMIT (URL) OF TROPONIN, DEFINED THE 99TH PERCENTILE OF cTnI DISTRIBUTION IN A REFERENCE POPULATION, HAS BEEN CONFIRMED THE DECISION THRESHOLD FOR KS DIAGNOSIS.Performed By: #### MG, CMP, TSH, T7, BNP #### [facility] [address] [place] [address] Dr. Glenys Toure ADEEL ADMITon 25-14-9789WE [Catalytic activity/Vol]29 U/L [id number] Health on above:Performed By: #### MG, CMP, TSH, T7, BNP #### [facility] [address] [place] [address] Dr. Glenys Ariza.MB [Mass/Vol]0.73 ng/mLNormal<=3.60[facility] Comment on above:Performed By: #### MG, CMP, TSH, T7, BNP #### [facility] [address] [place] [address] Dr. Glenys HollyHSTROP191.6 pg/mLCritically high4.0-51.3TWadsworth-Rittman [facility] Comment on above:Result Comment: CUT-OFF POINTS HAVE BEEN ESTABLISHED BASED ON THE FOURTH UNIVERSAL DEFINITIONS OF MYOCARDIAL INFARCTION. THE UPPER REFERENCE LIMIT (URL) OF TROPONIN, DEFINED THE 99TH PERCENTILE OF cTnI DISTRIBUTION IN A REFERENCE POPULATION, HAS BEEN CONFIRMED THE DECISION THRESHOLD FOR [place] DIAGNOSIS.Performed By: #### MG, CMP, TSH, T7, BNP #### [facility] [address] [place] [address] Dr. Glenys Hinkle79 ng/mLNormal9-82[facility] Anne HospitalComment on above: Performed By: #### MG, CMP, TSH, T7, BNP #### [facility] [address] [place] [address] Dr. Glenys Lopes W MANUAL DIFFon [id number]+NormalMercy Health St. Anne HospitalComment on above:Performed By: #### MG, CMP, TSH, T7, BNP #### [facility] [address] [place] [address] Dr. Glenys Erickson LYMPH #NormalMercy Health St. Anne HospitalComment on above: Performed By: #### MG, CMP, TSH, T7, BNP #### [facility] [address] [place] [address] Dr. Glenys Erickson LYMPH %NormalMercy Health St. Anne HospitalComment on above: Performed By: #### MG, CMP, TSH, T7, BNP #### [facility] [address] [place] [address] Dr. Glenys Vee #0.2 103/ulNormal0.0-0.3The [facility] HospitalComment on above:Performed By: #### MG, CMP, TSH, T7, BNP #### [facility] [address] [place] [address] Dr. Glenys Vee %1 %Normal0-5The [facility] HospitalComment on above:Performed By: #### MG, CMP, TSH, T7, BNP #### [facility] [address] [place] [address] Dr. Glenys Saab #0.00 103/ulNormal0.00-0.10The [facility] HospitalComment on above:Performed By: #### MG, CMP, TSH, T7, BNP #### [facility] [address] [place] [address] Dr. Glenys Saab %0.0 %Critically low0.2-2.0The [facility] HospitalCom[facility] on above:Performed By: #### MG, CMP, TSH, T7, BNP #### [facility] [address] [place] [address] Dr. Glenys HollyBLAST #NormalThe [facility] HospitalComment on above:Performed By: #### MG, CMP, TSH, T7, BNP #### [facility] [address] [place] [address] Dr. Glenys HollyBLAST %NormalThe [facility] HospitalComment on above:Performed By: #### MG, CMP, TSH, T7, BNP #### [facility] [address] [place] [address] Dr. Glenys HollyCORRECTED WBCNormal4.0-11.0The [facility] HospitalComment on above: Performed By: #### MG, CMP, TSH, T7, BNP #### [facility] [address] [place] [address] Dr. Glenys Obrien #0.00 103/ulNormal0.00-0.70The [facility] HospitalCom[facility] on above:Performed By: #### MG, CMP, TSH, T7, BNP #### [facility] [address] [place] [address] Dr. Glenys Obrien%0.0 %Critically low0.9-7.0The [facility] HospitalComment on above:Performed By: #### MG, CMP, TSH, T7, BNP #### [facility] [address] [place] [address] Dr. Glenys HollyHCT41.5 %Mosdfe11.0-48.0The [facility] HospitalComment on above: Performed By: #### MG, CMP, TSH, T7, BNP #### [facility] [address] [address] [address] Glenys HollyHGB14.2 g/nlMlvlgn77.0-16.0The [facility] HospitalComment on above: Performed By: #### MG, CMP, TSH, T7, BNP #### [facility] [address] [place] [address] Dr. Glenys Johnson #0.96 103/ulCritically low1.20-3.80The [facility] Comment on above:Performed By: #### MG, CMP, TSH, T7, BNP #### [facility] [address] [place] [address] Dr. Glenys Johnson%6.0 %Critically low20.5-60.0The [facility] HospitalComment on above:Performed By: #### MG, CMP, TSH, T7, BNP #### [facility] [address] [place] [address] Dr. Glenys HollyMCH31.0 jvAhcjyr12.7-34.0The [facility] HospitalComment on above: Performed By: #### MG, CMP, TSH, T7, BNP #### [facility] [address] [place] [address] Dr. Glenys HollyMCHC34.2 g/hvXqchsb51.9-35.2The [facility] HospitalComment on above:Performed By: #### MG, CMP, TSH, T7, BNP #### [facility] [address] [place] [address] Dr. Glenys HollyMCV90.6 pJTtwszd01.0-99.0The [facility] HospitalComment on above: Performed By: #### MG, CMP, TSH, T7, BNP #### [facility] [address] [place] [address] Dr. Glenys RayaOCYTE #NormalThe [facility] HospitalComment on above: Performed By: #### MG, CMP, TSH, T7, BNP #### [facility] [address] [place] [address] Dr. Glenys RayaOCYTE %NormalThe [facility] HospitalComment on above: Performed By: #### MG, CMP, TSH, T7, BNP #### [facility] [address] [place] [address] Dr. Glenys Avila#2.56 103/ulCritically high0.30-0.80The [facility] on above:Performed By: #### MG, CMP, TSH, T7, BNP #### [facility] [address] [place] [address] Dr. Glenys Avila%16.0 %Critically high1.7-12.0The [facility] Centerment on above:Performed By: #### MG, CMP, TSH, T7, BNP #### [facility] [address] [place] [address] Dr. Glenys LópezV11.1 fLNormal9.5-13.5The [facility] Centerment on above: Performed By: #### MG, CMP, TSH, T7, BNP #### [facility] [address] [place] [address] Dr. Glenys Pena #NormalMercy Health St. Anne HospitalComment on above:Performed By: #### MG, CMP, TSH, T7, BNP #### [facility] [address] [place] [address] Dr. Glenys Pena %NormalThe [facility] on above:Performed By: #### MG, CMP, TSH, T7, BNP #### [facility] [address] [place] [address] Dr. Glenys HollyNRBCNormalThe [facility] Centerment on above:Performed By: #### MG, CMP, TSH, T7, BNP #### [facility] [address] [place] [address] Dr. Glenys HollyPLT352 103/jbWtpwsk077-434Rol [facility] on above: Performed By: #### MG, CMP, TSH, T7, BNP #### [facility] [address] [place] [address] Dr. Glenys BarryC4.58 106/ulNormal4.20-5.40The [facility] HospitalComment on above:Performed By: #### MG, CMP, TSH, T7, BNP #### [facility] [address] [address] [address] Glenys ForteW15.2 %Critically high11.0-15.0The [facility] HospitalComment on above:Performed By: #### MG, CMP, TSH, T7, BNP #### [facility] [address] [address] [address] Glenys Jiménez #12.32 103/ulCritically high1.40-6.50The [facility] Comment on above:Performed By: #### MG, CMP, TSH, T7, BNP #### [facility] [address] [address] [address] Glenys Jiménez %77.0 %Critically high43.0-75.0The [facility] HospitalComment on above:Performed By: #### MG, CMP, TSH, T7, BNP #### [facility] [address] [address] [address] Glenys TinajeroBC16.0 103/ulCritically high4.0-11.0The [facility] HospitalComment on above:Performed By: #### MG, CMP, TSH, T7, BNP #### [facility] [address] [place] [address] Dr. Glenys Garzon CHEST WO W CONon [id number] CHEST WO W CONEXAMINATION: CTA CHEST WO W CON HISTORY: Cough, fever, chills, [...] Electronically authenticated by: YULISSA TALBERT Date: 2022-05-05 09:32NoCommunity Regional Medical CenterCULTURE BLOODon [id number] examination of blood, cultureCulture Observations: NO GROWTH AT 5 DAYS.NormalThe [facility] HospitalComment on above:Performed By: #### [id number] ####[facility] [address] [place], [place] [address]Dr. Glenys [facility] SanitariumMicroscopic examination of blood, cultureCulture Observations: NO GROWTH AT 5 DAYS.NormalThe [facility] HospitalComment on above:Performed By: #### BLDCX1 ####[facility] [address] [address]. Glenys [facility] SanitariumCULTNORTH SUNFLOWER MEDICAL [facility]ENTER URINEon [id number] URINECulture Observations: LIGHT GROWTH OF MIXED GENITAL NIDA. NO POTENTIAL PATHOGENS SEEN.NormalThe [facility] HospitalComment on above:Performed By: #### URCX ####[facility] [address] [place], [place] [address]Dr. Glenys HollyCovid-19 PCR (CVDTBH)on 51-09-8910HYVD-CoV-2 (COVID-19) RNA KINZA+probe Ql (Unsp spec)Not detectedNormalNOT DETECTEDThe [facility] HospitalComment on above:Result Comment: When diagnostic testing is negative, the [...] for this test is supported by the Program Management Specialist of Health and Human Service's declaration [...] which the test may no longer be used).Performed By: #### CVDTBH #### [facility] [address] [place] [address] Dr. Glenys ValenzuelaCHOCARDIO M/2D COMPLETEon [id number] M/2D COMPLETE Patient: JUDITH LAND Exam Date: 05/05/2022 : 1945 Gender:F Ordering : DR KAVON SAMS . Admission #: [id number] Family : Order #: [id number] CLICK HERE TO VIEW EXAM ECHOCARDIOGRAM REPORT [...] by: Trixie Neal M.D. on 05/10/2022 at 13:12Ohio[facility] Mans[facility] HospitalMiguelangel A AND B [facility] [id number]s Health Administration on above:Result Comment: Negative for Flu A protein angiten. Infection due to Flu A cannot be ruled out. FluA angiten in the sample may be below the detection limit of the test.Performed By: #### MG, CMP, TSH, T7, BNP #### [facility] [address] [place] [address] Dr. Glenys EspositoTRINITY HEALTH SYSTEM EAST CAMPUSEVANGELINA Keenan Private HospitalComasc[facility] on above: Result Comment: Negative for Flu B protein antigen. Infection due to Flu B cannot be ruled out. FluB antigen in the sample may be below the detection limit of the test.Performed By: #### MG, CMP, TSH, T7, BNP #### [facility] [address] [place] [address] Dr. Yilan ChangINFLUENZA A AGNegativeNormalNEGATIVE SEE COMMENTThe [facility] HospitalComment on above:Performed By: #### MG, CMP, TSH, T7, BNP #### [facility] [address] [place] [address] Dr. Glenys Meyer AGNegativeNormalNEGATIVE SEE COMMENTThe [facility] HospitalComment on above:Performed By: #### MG, CMP, TSH, T7, BNP #### [facility] [address] [place] [address] Dr. Glenys HollyINTERNAL CONTROLSWithin Normal LimitsNormalWithin Normal Limits The [facility] HospitalComment on above:Performed By: #### MG, CMP, TSH, T7, BNP #### [facility] [address] [place] [address] Dr. Glenys HollyLACTATE/LACTIC ACIDon [id number] [Moles/Vol]5.2 mmol/L Critically high0.4-1.9The [facility] HospitalComment on above:Performed By: #### MG, CMP, TSH, T7, BNP #### [facility] [address] [place] [address] Dr. Glenys HollyLactate [Moles/Vol]4.8 mmol/LCritically high0.4-1.9The [facility] HospitalComment on above:Performed By: #### MG, CMP, TSH, T7, BNP #### [facility] [address] [place] [address] Dr. Glenys HollyLIPASEon 83-56-6080Fiuuuv [Catalytic activity/Vol]64.0 U/L Critically low73.0-393.0The [facility] HospitalComment on above:Performed By: #### MG, CMP, TSH, T7, BNP #### [facility] [address] [place] [address] Dr. Glenys HollyPROZhen CHEM 8 (BAS METB)on [id number] gap [Moles/Vol]12.6 mmol/LNormalThe [facility] HospitalComment on above:Performed By: #### MG, CMP, TSH, T7, BNP #### [facility] [address] [place] [address] Dr. Glenys HollyCalcium [Mass/Vol]9.6 mg/dLNormal8.5-10.1The [facility] Comment on above:Performed By: #### MG, CMP, TSH, T7, BNP #### [facility] [address] [place] [address] Dr. Glenys HollyChloride [Moles/Vol]102 mmol/YGvsmiu71-619Ckh [facility] Comment on above:Performed By: #### MG, CMP, TSH, T7, BNP #### [facility] [address] [place] [address] Dr. Glenys HollyCO2 [Moles/Vol]26.3 mmol/TDgzpih23.0-32.0The [facility] Comment on above:Performed By: #### MG, CMP, TSH, T7, BNP #### [facility] [address] [place] [address] Dr. Glenys HollyCreatinine [Mass/Vol]1.00 mg/dLNormal0.55-1.02The [facility] HospitalComment on above:Performed By: #### MG, CMP, TSH, T7, BNP #### [facility] [address] [place] [address] Dr. Glenys ValenzuelaGFR-AF EQUATORIAL GUINEAN>60Normal>=60The [facility] HospitalComment on above:Performed By: #### MG, CMP, TSH, T7, BNP #### [facility] [address] [place] [address] Dr. Glenys ValenzuelaGFR-NON AF TKMGHICC66 mL/min/1.25c6Kiwxeqytgk low>=60The [facility] HospitalComment on above:Performed By: #### MG, CMP, TSH, T7, BNP #### [facility] [address] [place] [address] Dr. Glenys HollyGlucose [Mass/Vol]128 mg/dLCritically axyv60-752Rck [facility] HospitalComment on above:Performed By: #### MG, CMP, TSH, T7, BNP #### [facility] [address] [place] [address] Dr. Glenys HollyPotassium [Moles/Vol]2.9 mmol/LCritically low3.5-5.1The [facility] HospitalComment on above:Performed By: #### MG, CMP, TSH, T7, BNP #### [facility] [address] [address] [address] Glenys HollySodium [Moles/Vol]138 mmol/CEswlpk188-756Cfs [facility] Comment on above:Performed By: #### MG, CMP, TSH, T7, BNP #### [facility] [address] [address] [address] Glenys HollyUrea nitrogen [Mass/Vol]20.0 mg/dLCritically high7.0-18.0The [facility] HospitalComment on above:Performed By: #### MG, CMP, TSH, T7, BNP #### [facility] [address] [address] [address] Glenys Nelson nitrogen/Creatinine [Mass ratio]20.0 mg/mgNormalThe [facility] HospitalComment on above:Performed By: #### MG, CMP, TSH, T7, BNP #### [facility] [address] [address] [address] Glenys Ibrahim [id number] [Mass/Vol]7.40 ug/dLNormal4.80-13.90The [facility] HospitalComment on above:Performed By: #### MG, CMP, TSH, T7, BNP #### [facility] [address] [address] [address] Glenys Licona 44-46-6936KNO4.198 uIU/mLCritically low0.358-3.740The [facility] HospitalComment on above:Performed By: #### MG, CMP, TSH, T7, BNP #### [facility] [address] [place] [address] Dr. Glenys Quigley RANDOM W/MICROSCOPICon [id number] SEENNormalNONE SEENThe [facility] HospitalComment on above:Performed By: #### MG, CMP, TSH, T7, BNP #### [facility] [address] [address] [address] Glenys HollyBilirubin Ql (U)NegativeNormalNEGSt. Anthony's Hospital Comment on above:Performed By: #### MG, CMP, TSH, T7, BNP #### [facility] [address] [address] [address] Glenys HollyCASTNONGerardo SEENNormalNONE SEENMercy Health St. Anne HospitalComascension st. [facility] hospital on above:Performed By: #### MG, CMP, TSH, T7, BNP #### [facility] [address] [address] [address] Glenys HollyClarity (U)SL CLOUDYAbnormalCLEARThGalion HospitalComment on above:Performed By: #### MG, CMP, TSH, T7, BNP #### [facility] [address] [address] [address] Glenys Astorga (U)LT. YELLOWNormalYELLOWMercy Health St. Anne HospitalComment on above:Performed By: #### MG, CMP, TSH, T7, BNP #### [facility] [address] [address] [address] Glenys HollyCrystals LM Nom (Urine sed)NONE SEENNormalNONE SEENMercy Health St. Anne HospitalComment on above:Performed By: #### MG, CMP, TSH, T7, BNP #### [facility] [address] [address] [address] Veronica ChangEpithelial cells LM Ql (Urine sed)FEWAbnormalNONE SEEN /RAREMercy Health St. Anne HospitalComment on above:Performed By: #### MG, CMP, TSH, T7, BNP #### [facility] [address] [address] [address] Glenys HollyGlucose Ql (U)NegativeNormalNEGATIVEMercy Health St. Anne HospitalComascension st. [facility] hospital on above:Performed By: #### MG, CMP, TSH, T7, BNP #### [facility] [address] [address] [address] Glenys HollyHemoglobin Ql (U)MODERATEAbnormalNEGSt. Anthony's Hospital Comment on above:Performed By: #### MG, CMP, TSH, T7, BNP #### [facility] [address] [address] [address] Glenys Lutz Ql (U)NegativeNormalNEGATIVEThe [facility] HospitalComment on above:Performed By: #### MG, CMP, TSH, T7, BNP #### [facility] [address] [address] [address] Gleyns HollyLEUKOCYTESNegativeNormalNEGATIVEThe [facility] HospitalComment on above:Performed By: #### MG, CMP, TSH, T7, BNP #### [facility] [address] [address] [address] Glenys Todd SEENNormalNONE SEENThe [facility] HospitalComment on above:Performed By: #### MG, CMP, TSH, T7, BNP #### [facility] [address] [address] [address] Glenys Don Ql (U)NegativeNormalNEGATIVEThe [facility] HospitalComment on above:Performed By: #### MG, CMP, TSH, T7, BNP #### [facility] [address] [address] [address] Glenys Sparrow (U)6.0 [pH]Normal5-9The [facility] Centerment on above: Performed By: #### MG, CMP, TSH, T7, BNP #### [facility] [address] [address] [address] Glenys HollyWvytuVTK7-5Xyjuaajn5-2Ueq [facility] HospitalComment on above:Performed By: #### MG, CMP, TSH, T7, BNP #### [facility] [address] [address] [address] Glenys HollySPEC GRAVITY1.370Fouyjr8.005-<=1.025The [facility] on above:Performed By: #### MG, CMP, TSH, T7, BNP #### [facility] [address] [address] [address] Glenys Quigley PROTEINTRACENormalNEGATIVE/ TRACEThe [facility] HospitalComment on above:Performed By: #### MG, CMP, TSH, T7, BNP #### [facility] [address] [address] [address] Glenys Maurer Qn (U)0.2 {Phoebe'U}/dLNormal0.2 - 1.0The [facility] HospitalComment on above:Performed By: #### MG, CMP, TSH, T7, BNP #### [facility] [address] [address] [address] Glenys HollyWBCNONGerardo SEENNormalNONE SEENThe [facility] HospitalComment on above: Performed By: #### MG, CMP, TSH, T7, BNP #### [facility] [address] [address] [address] Glenys HollyXR CHEST 1 Von [id number] CHEST 1 VEXAM: XR CHEST 1 V HISTORY: . COUGH [...] Electronically authenticated by: SUPA LERMA Date: 2022-05-05 07:41NormAccess Hospital DaytonCULTURE URINEon [id number] URINECulture Observations: GREATER THAN 4 ORGANISMS PRESENT. PLEASE RESUBMIT CLEAN CATCH MID-STREAM URINE IF CLINICALLY INDICATED.NormalThe [facility] HospitalComment on above:Performed By: #### URCX ####[facility] [address] [address]Dr. Glenys Lopes W MANUAL DIFFon [id number] LYMPH #NormalThe [facility] HospitalComascension [facility] on above:Performed By: #### MG, CMP, TSH, T7, BNP #### [facility] [address] [address] [address] Glenys HollyATYPICAL LYMPH %NormalThe [facility] HospitalComment on above: Performed By: #### MG, CMP, TSH, T7, BNP #### [facility] [address] [address] [address] Glenys Vee #Normal0.0-0.3The [facility] HospitalComment on above: Performed By: #### MG, CMP, TSH, T7, BNP #### [facility] [address] [address] [address] Glenys Vee %Normal0-5The [facility] HospitalComment on above:Performed By: #### MG, CMP, TSH, T7, BNP #### [facility] [address] [place] [address] Dr. Glenys Saab #0.20 103/ulCritically high0.00-0.10The [facility] on above:Performed By: #### MG, CMP, TSH, T7, BNP #### [facility] [address] [place] [address] Dr. Glenys Saab %1.0 %Normal0.2-2.0The [facility] Centerment on above: Performed By: #### MG, CMP, TSH, T7, BNP #### [facility] [address] [place] [address] Dr. Glenys Gloria #NormalThe [facility] on above:Performed By: #### MG, CMP, TSH, T7, BNP #### [facility] [address] [place] [address] Dr. Glenys Glorai %NormalMercy Health St. Anne HospitalComment on above:Performed By: #### MG, CMP, TSH, T7, BNP #### [facility] [address] [place] [address] Dr. Glenys HollyCORRECTED WBCNormal4.0-11.0The [facility] Centerment on above: Performed By: #### MG, CMP, TSH, T7, BNP #### [facility] [address] [place] [address] Dr. Glenys Obrien #0.00 103/ulNormal0.00-0.70The [facility] HospitalComment on above:Performed By: #### MG, CMP, TSH, T7, BNP #### [facility] [address] [place] [address] Dr. Glenys Obrien%0.0 %Critically low0.9-7.0The [facility] HospitalComment on above:Performed By: #### MG, CMP, TSH, T7, BNP #### [facility] [address] [place] [address] Dr. Glenys HollyHCT45.0 %Tgpxpo67.0-48.0The [facility] HospitalComment on above: Performed By: #### MG, CMP, TSH, T7, BNP #### [facility] [address] [place] [address] Dr. Glenys HollyHGB15.2 g/iePnqynf72.0-16.0The [facility] on above: Performed By: #### MG, CMP, TSH, T7, BNP #### [facility] [address] [place] [address] Dr. Glenys Johnson #2.80 103/ulNormal1.20-3.80The [facility] on above:Performed By: #### MG, CMP, TSH, T7, BNP #### [facility] [address] [place] [address] Dr. Glenys Johnson%14.0 %Critically low20.5-60.0The [facility] on above:Performed By: #### MG, CMP, TSH, T7, BNP #### [facility] [address] [place] [address] Dr. Glenys HollyMCH30.6 ylDlfkub51.7-34.0The [facility] on above: Performed By: #### MG, CMP, TSH, T7, BNP #### [facility] [address] [place] [address] Dr. Glenys DyeHC33.8 g/obJxduep27.9-35.2The [facility] HospitalComment on above:Performed By: #### MG, CMP, TSH, T7, BNP #### [facility] [address] [address] [address] Glenys DyeV90.7 tGQnzekw95.0-99.0The [facility] HospitalComment on above: Performed By: #### MG, CMP, TSH, T7, BNP #### [facility] [address] [place] [address] Dr. Glenys Hopson #NormalThe [facility] HospitalComment on above: Performed By: #### MG, CMP, TSH, T7, BNP #### [facility] [address] [place] [address] Dr. Glenys RayaOCYTE %NormalMercy Health St. Anne HospitalComment on above: Performed By: #### MG, CMP, TSH, T7, BNP #### [facility] [address] [place] [address] Dr. Glenys Avila#2.40 103/ulCritically high0.30-0.80The [facility] Comment on above:Performed By: #### MG, CMP, TSH, T7, BNP #### [facility] [address] [place] [address] Dr. Glenys Avila%12.0 %Normal1.7-12.0The [facility] HospitalComment on above: Performed By: #### MG, CMP, TSH, T7, BNP #### [facility] [address] [place] [address] Dr. Glenys HollyMPV11.5 fLNormal9.5-13.5The [facility] HospitalComment on above: Performed By: #### MG, CMP, TSH, T7, BNP #### [facility] [address] [place] [address] Dr. Glenys Pena #NormalThe [facility] HospitalComment on above:Performed By: #### MG, CMP, TSH, T7, BNP #### [facility] [address] [place] [address] Dr. Glenys Pena %NormalThe [facility] HospitalComment on above:Performed By: #### MG, CMP, TSH, T7, BNP #### [facility] [address] [place] [address] Dr. Glenys WoodBCNormalThe [facility] HospitalComment on above:Performed By: #### MG, CMP, TSH, T7, BNP #### [facility] [address] [place] [address] Dr. Glenys HollyPLT323 103/vnMaeazc332-410Xnw [facility] HospitalComment on above: Performed By: #### MG, CMP, TSH, T7, BNP #### [facility] [address] [place] [address] Dr. Glenys HollyRBC4.96 106/ulNormal4.20-5.40The [facility] HospitalComment on above:Performed By: #### MG, CMP, TSH, T7, BNP #### [facility] [address] [place] [address] Dr. Glenys HollyRDW14.4 %Ucjohm03.0-15.0The [facility] HospitalComment on above: Performed By: #### MG, CMP, TSH, T7, BNP #### [facility] [address] [place] [address] Dr. Glenys Jiménez #14.60 103/ulCritically high1.40-6.50The [facility] Comment on above:Performed By: #### MG, CMP, TSH, T7, BNP #### [facility] [address] [place] [address] Dr. Glenys Jiménez %73.0 %Rofqqj36.0-75.0The [facility] HospitalComment on above: Performed By: #### MG, CMP, TSH, T7, BNP #### [facility] [address] [place] [address] Dr. Glenys TinajeroBC20.0 103/ulCritically high4.0-11.0The [facility] HospitalComment on above:Performed By: #### MG, CMP, TSH, T7, BNP #### [facility] [address] [place] [address] Dr. Glenys HollyCT ABD/PELV W CONon [id number] ABD/PELV W CONEXAMINATION: CT ABD/PELV W CON HISTORY: GENERALIZED ABDOMINAL PAIN , [...] Electronically authenticated by: RAMIRO SPENCER Date: 2022-03-29 11:27[facility] URINE PROFILEon [id number] Ql (U)NegativeNormal NEGATIVEKettering Health on above:Performed By: #### MG, CMP, TSH, T7, BNP #### [facility] [address] [place], [place] [address] Dr. Glenys Sadler (U)CLEARNormalCLEARKettering Health on above: Performed By: #### MG, CMP, TSH, T7, BNP #### [facility] [address] [place], [place] [address] Dr. Glenys Astorga (U)LT. YELLOWNormalYELLOWThe [facility] on above:Performed By: #### MG, CMP, TSH, T7, BNP #### [facility] [address] [address] [address] Glenys Jordan micrscopic examination will be performed if indicated. NormalThe [facility] HospitalComment on above:Performed By: #### MG, CMP, TSH, T7, BNP #### [facility] [address] [address] [address] Glenys HollyGlucose Ql (U)NegativeNormalNEGATIVEMercy Health St. Anne HospitalComment on above:Performed By: #### MG, CMP, TSH, T7, BNP #### [facility] [address] [address] [address] Glenys HollyHemoglobin Ql (U)MODERATEAbnormalNEGSt. Anthony's Hospital Comment on above:Performed By: #### MG, CMP, TSH, T7, BNP #### [facility] [address] [address] [address] Glenys HollyKetones Ql (U)15 mg/dlAbnormalNEGSt. Anthony's Hospital Comment on above:Performed By: #### MG, CMP, TSH, T7, BNP #### [facility] [address] [address] [address] Glenys HollyLEUKOCYTESLARGEAbnormalNEGSt. Anthony's HospitalComment on above:Performed By: #### MG, CMP, TSH, T7, BNP #### [facility] [address] [address] [address] Glenys HollyNitrite Ql (U)NegativeNormalNEGATIVEMercy Health St. Anne HospitalComment on above:Performed By: #### MG, CMP, TSH, T7, BNP #### [facility] [address] [address] [address] Glenys HollypH (U)6.5 [pH]Normal5-9Mer[facility] St. Anne HospitalComment on above: Performed By: #### MG, CMP, TSH, T7, BNP #### [facility] [address] [address] [address] Glenys HollySPEC GRAVITY1.648Fmilgt7.005-<=1.025The [facility]huja Medical Centerment on above:Performed By: #### MG, CMP, TSH, T7, BNP #### [facility] [address] [address] [address] Glenys Quigley PROTEINTRACENormalNEGATIVE/ TRACEThe [facility] HospitalComment on above:Performed By: #### MG, CMP, TSH, T7, BNP #### [facility] [address] [address] [address] Glenys Monet MICRO INDINDICATEDNormalThe [facility] HospitalComment on above: Performed By: #### MG, CMP, TSH, T7, BNP #### [facility] [address] [place] [address] Dr. Glenys Raderbilinogen Qn (U)0.2 {Phoebe'U}/dLNormal0.2 - 1.0The [facility] HospitalComment on above:Performed By: #### MG, CMP, TSH, T7, BNP #### [facility] [address] [place] [address] Dr. Glenys HollyLIPASEon 15-56-2036Ishxlg [Catalytic activity/Vol]62.0 U/L Critically low73.0-393.0The [facility] on above:Performed By: #### MG, CMP, TSH, T7, BNP #### [facility] [address] [place] [address] Dr. Glenys HollyPROF 14(COMP METB)on 53-60-3368Ytqldeh [Mass/Vol]3.7 g/dLNormal 3.4-5.0The [facility] on above:Performed By: #### MG, CMP, TSH, T7, BNP #### [facility] [address] [place] [address] Dr. Glenys HollyAlbumin/Globulin [Mass ratio]1.2 {ratio}NormalThe [facility] HospitalComascension [facility] on above:Performed By: #### MG, CMP, TSH, T7, BNP #### [facility] [address] [place] [address] Dr. Glenys HollyALP [Catalytic activity/Vol]106 U/TYtyngr98-610ArdMercy Health St. Anne HospitalComment on above:Performed By: #### MG, CMP, TSH, T7, BNP #### [facility] [address] [place] [address] Dr. Glenys Gifford [Catalytic activity/Vol]17 U/ZKmehpr86-75Uvt [facility] HospitalComment on above:Performed By: #### MG, CMP, TSH, T7, BNP #### [facility] [address] [place] [address] Dr. Glenys Escamillaon gap [Moles/Vol]11.8 mmol/LNormalMercy Health St. [facility] Comment on above:Performed By: #### MG, CMP, TSH, T7, BNP #### [facility] [address] [place] [address] Dr. Glenys Tolentino [Catalytic activity/Vol]19 U/UIitfvl14-22Mcd [facility] HospitalComment on above:Performed By: #### MG, CMP, TSH, T7, BNP #### [facility] [address] [place] [address] Dr. Glenys HollyBilirubin [Mass/Vol]0.8 mg/dLNormal0.2-1.0[facility] Comment on above:Performed By: #### MG, CMP, TSH, T7, BNP #### [facility] [address] [place] [address] Dr. Glenys HollyCalcium [Mass/Vol]9.8 mg/dLNormal8.5-10.1[facility] Comment on above:Performed By: #### MG, CMP, TSH, T7, BNP #### [facility] [address] [place] [address] Dr. Glenys HollyChloride [Moles/Vol]101 mmol/JErcgky16-013TdpMercy Health St. [facility] Comment on above:Performed By: #### MG, CMP, TSH, T7, BNP #### [facility] [address] [place] [address] Dr. Glenys HollyCO2 [Moles/Vol]26.2 mmol/IQaczgt45.0-32.0[facility] Comment on above:Performed By: #### MG, CMP, TSH, T7, BNP #### [facility] [address] [place] [address] Dr. Glenys HollyCreatinine [Mass/Vol]0.76 mg/dLNormal0.55-1.02The [facility] HospitalComment on above:Performed By: #### MG, CMP, TSH, T7, BNP #### [facility] [address] [place] [address] Dr. Glenys ValenzuelaGFR-AF EQUATORIAL GUINEAN>60Normal>=60The [facility] HospitalComment on above:Performed By: #### MG, CMP, TSH, T7, BNP #### [facility] [address] [place] [address] Dr. Glenys Solares-NON AF EQUATORIAL GUINEAN>60Normal>=60The [facility] HospitalComment on above:Performed By: #### MG, CMP, TSH, T7, BNP #### [facility] [address] [place] [address] Dr. Glenys HollyGlobulin (S) [Mass/Vol]3.2 g/dLNormalThe [facility] HospitalComment on above:Performed By: #### MG, CMP, TSH, T7, BNP #### [facility] [address] [place] [address] Dr. Glenys HollyGlucose [Mass/Vol]103 mg/sHImsbgk17-137WaaMercy Health St. [facility] Hospital Comment on above:Performed By: #### MG, CMP, TSH, T7, BNP #### [facility] [address] [place] [address] Dr. Glenys HollyPotassium [Moles/Vol]3.0 mmol/LCritically low3.5-5.1The [facility] HospitalComment on above:Performed By: #### MG, CMP, TSH, T7, BNP #### [facility] [address] [place] [address] Dr. Glenys HollyProtein [Mass/Vol]6.9 g/dLNormal6.4-8.2[facility] Comment on above:Performed By: #### MG, CMP, TSH, T7, BNP #### [facility] [address] [address] [address] Glenys Wendium [Moles/Vol]136 mmol/MAwxdxv059-407Duu [facility] Comment on above:Performed By: #### MG, CMP, TSH, T7, BNP #### [facility] [address] [address] [address] Glenys Nelson nitrogen [Mass/Vol]16.0 mg/dLNormal7.0-18.0The [facility] HospitalComment on above:Performed By: #### MG, CMP, TSH, T7, BNP #### [facility] [address] [address] [address] Glenys Nelson nitrogen/Creatinine [Mass ratio]21.1 mg/mgFlower HospitalComment on above:Performed By: #### MG, CMP, TSH, T7, BNP #### [facility] [address] [place] [address] Dr. Glenys Amin, HIGH SENSITIVITYon 26-43-1382SKINVT21.7 pg/mLNormal 4.0-51.3The [facility] HospitalComment on above:Result Comment: CUT-OFF POINTS HAVE BEEN ESTABLISHED BASED ON THE FOURTH UNIVERSAL DEFINITIONS OF MYOCARDIAL INFARCTION. THE UPPER REFERENCE LIMIT (URL) OF TROPONIN, DEFINED THE 99TH PERCENTILE OF cTnI DISTRIBUTION IN A REFERENCE POPULATION, HAS BEEN CONFIRMED THE DECISION THRESHOLD FOR [place] DIAGNOSIS.Performed By: #### MG, CMP, TSH, T7, BNP #### [facility] [address] [place] [address] Dr. Glenys Powers MICROSCOPIC ONLYon [id number]XOKW SEENMercy Health St. Anne HospitalComment on above:Performed By: #### MG, CMP, TSH, T7, BNP #### [facility] [address] [place] [address] Dr. Glenys Carroll identified Cx Nom (U)INDICATEDNoCommunity Regional Medical CenterComment on above:Performed By: #### MG, CMP, TSH, T7, BNP #### [facility] [address] [place] [address] Dr. Glenys Mcguire OX CRYSTALSMODERATENoCommunity Regional Medical CenterComment on above:Performed By: #### MG, CMP, TSH, T7, BNP #### [facility] [address] [address] [address] Glenys Palma SEENNormalNONE SEENMercy Health St. Anne HospitalComascension st. [facility] hospital on above:Performed By: #### MG, CMP, TSH, T7, BNP #### [facility] [address] [address] [address] Glenys HollyCrystals LM Nom (Urine sed)SEENAbnormalNONE SEENThe [facility] HospitalComascension st. [facility] on above:Performed By: #### MG, CMP, TSH, T7, BNP #### [facility] [address] [address] [address] Veronica ChangEpithelial cells LM Ql (Urine sed)FEWAbnormalNONE SEEN /RAREThe [facility] HospitalComascension st. [facility] on above:Performed By: #### MG, CMP, TSH, T7, BNP #### [facility] [address] [address] [address] Glenys HollyMUCOBLANCO SEENNormmsNONE SEENMercy Health St. Anne HospitalComascension st. john hospital on above:Performed By: #### MG, CMP, TSH, T7, BNP #### [facility] [address] [address] [address] Glenys HollyIqotoFOW7-43Kodcynii9-1Udq [facility] HospitalComasc[facility] on above:Performed By: #### MG, CMP, TSH, T7, BNP #### [facility] [address] [address] [address] Glenys HollyRrndcNEE37-55PbysplsdUSTI SEENMercy Health St. Anne HospitalComascension st[facility] hospital on above: Performed By: #### MG, CMP, TSH, T7, BNP #### [facility] [address] [place] [address] Dr. Glenys HollyXR ABD FLAT UP_PA Luly [id number] ABD FLAT UP_PA CHEXAMINATION: XR ABD FLAT UP_PA CH HISTORY: CONSTIPATION, [...] Electronically authenticated by: RAMIRO SPENCER Date: 2022-03-29 09:27Flower HospitalCT HEAD WO CONon [id number] HEAD WO CONEXAMINATION: CT HEAD WO CON HISTORY: Ataxia , [...] Electronically authenticated by: RAMIRO SPENCER Date: 2021-12-27 12:48Flower HospitalDischarge Summaryon [id number] SummaryMR#: [id number] IUn[facility]University [facility] Pt[facility] Name: Judith Land Admitted: [...] come and go. She initiallypresented to an outsidehospital where CT scan showed a splenic rupturewith active intraperitoneal bleeding. [facility] outside [facility].Uponarrival to the [facility] [place], no other injuries were noted. The patientwas [...] physical therapy and occupational therapy. Thepatient received herappropriate post splenectomy vaccines on postop day#3. The [...] history and underlying COPD.Respiratory felt that the patientqualified for 5 L of home oxygen at [...] fever or chills, increased drainage or redness,unrelenting painor abnormal bleeding or drainage from her incision [...] 4-6 hours as needed for pain and Bcfjll957 mg b.i.d. for opioid related constipation.Electronically Signed by:Supa Branch M.D. 08/29/2017 12:01 P Supa Branch M.D. I personally saw this patient on the day of the encounter, performed thekey portion(s) of the service and participated in the management andconfirm the resident's documentation. Please note there may be anadditional personal documentation from me. Date Dict: 08/16/2017/10:11 A/Josh Palmer, MDDate Trans: 08/17/2017 06:00 A/mmoDN_JN:[id number] Health HamiltonBASIC METABOLIC PANELon 11-45-7961Jjcrnnp8.8 mg/dLNormal8.6-10.3The Peoples HospitalComment on above:Order Comment: No: Do not add to previous drawPerformed By: #### 37650, 94147 ####[facility] [facility] [place] [address], GLZHwbokgey46 mmol/PSlw44-211Wyn [facility]oples HospitalComment on above:Order Comment: No: Do not add to previous drawPerformed By: #### 50047, 38352 ####[facility] [facility] [place] [address], OGEVG533 mmol/ZBnbi54-91Nku [facility] HospitalComment on above:Order Comment: No: Do not add to previous draw Performed By: #### 22145, 92227 ####[facility] [place] [address], USACreatinine0.75 mg/dLNormal0.60-1.20The Peoples HospitalComment on above:Order Comment: No: Do not add to previous drawPerformed By: #### 63906, 00890 ####[facility] [place] [address], USAeGFR (black) mL/min/{1.73_m2}Normal>60The Peoples HospitalComment on above:Order Comment: No: Do not add to previous drawResult Comment: Calculation may not be valid for patients over 70 yearsPerformed By: #### 88734, 58482 ####[facility] [place] [address], [place] eGFR (non-black)mL/min/{1.73_m2}Normal>60The [facility] Comment on above:Order Comment: No: Do not add to previous drawResult Comment: Calculation may not be valid for patients over 70 yearsPerformed By: #### 64488, 32761 ####[facility] [place] [address], USAGlucose mass conc91 mg/vTYrfwva58-940Xaj [facility] HospitalComment on above:Order Comment: No: Do not add to previous drawPerformed By: #### 83539, 18266 ####[facility] [place] [address], USAPotassium molar conc2.8 mmol/LLow3.5-5.1The Peoples HospitalComment on above:Order Comment: No: Do not add to previous drawPerformed By: #### 54600, 51203 ####[facility] [place] [address], ZIPYljynw176 mmol/YMdvpev893-416Mfh [facility] HospitalComment on above:Order Comment: No: Do not add to previous drawPerformed By: #### 48990, 26249 ####[facility] [place] [address], USAUrea lroxzvgi80 mg/dL Normal7-25The Peoples HospitalComment on above:Order Comment: No: Do not add to previous drawPerformed By: #### 29649, 20674 ####[facility] [place] [address], USACBC COMPLETE BLOOD COUNTon 46-88-2941Nvekaihlpaf distribution width Auto Ratio (RBC)14.6 %Normal 11.5-15.0The Peoples HospitalComment on above:Order Comment: No: Do not add to previous drawPerformed By: #### 51127, 76725 ####[facility] [place] [address], [facility] MEDICAL CENTERErythrocytes (RBC) 4.05 10*6/uLNormal3.80-5.00The [facility] HospitalComment on above:Order Comment: No: Do not add to previous drawPerformed By: #### 91161, 79041 ####[facility] [place] [address], [facility] MEDICAL CENTERErythrocytes (RBC)0 %Normal0-0The [facility] Comment on above:Order Comment: No: Do not add to previous drawPerformed By: #### 42651, 70211 ####[facility] [place] [address], USAHematocrit (HCT)36.8 %Jhxjjm93.0-45.0The Peoples HospitalComment on above:Order Comment: No: Do not add to previous drawPerformed By: #### 39148, 48010 ####[facility] [place] [address], [facility] MEDICAL CENTERHemoglobin mass conc (Bld)12.3 g/dLNormal 12.0-15.0The Peoples HospitalComment on above:Order Comment: No: Do not add to previous drawPerformed By: #### 19756, 45171 ####[facility] [place] [address], SUMESB47.4 pgNormal 27.0-33.0The Peoples HospitalComment on above:Order Comment: No: Do not add to previous drawPerformed By: #### 19941, 87352 ####[facility] [place] [address].[place] [address], [facility] – TAHLEQUAHHC mass conc (RBC)33.4 g/mOUpipvx85.0-35.0The [facility]oples HospitalComment on above:Order Comment: No: Do not add to previous drawPerformed By: #### 01107, 29620 ####[address] [place] [address], XITLPS93.9 bTFwnhcw83.0-98.0The [facility] Comment on above:Order Comment: No: Do not add to previous drawPerformed By: #### 41389, 03847 ####[address] [place] [address], [facility] REGION[facility] MEDICAL CENTERPLAT DFB412 10*3/nSVucdhr228-678Zmw Peoples HospitalComment on above:Order Comment: No: Do not add to previous drawPerformed By: #### 36188, 76734 ####[address] [place] [address], [facility] MEDICAL CENTERWBC (Leukocytes)11.0 10*3/uLHigh4.0-10.6The Peoples HospitalComment on above:Order Comment: No: Do not add to previous drawPerformed By: #### 90713, 801[address] ####[place] [address], [facility] MEDICAL CENTERPORTABLE CHEST 1 VIEWon 73-49-1086MNVGWOMA CHEST 1 VIEWUnSelect Medical Specialty Hospital - CantonDepartment of Swmuzwolc[address] [place] [address] Patien t Name: JUDITH LAND : 1945Sex: FAge: Race: WhiteMRN: [id number]. Location: [id number] Status: IVisit #: [id number] Date: 08/15/2017 7:05:00 AMCompleted Date: 08/15/2017 07:54 AMRequesting Provider: JOSH PALMER Attending Provider: ALEXANDER CABALLERO Report Copy To: Signs & Symptoms: O2 DesaturationHistory: Patient history not availableComments: R/O EffusionExam: PORTABLE CHEST 1 VIEWAccession #: [id number] ====PORTABLE CHEST 1 VIEW 08/15/2017 7:54 AM EST [...] effusion and silhouetting of the right heart borderand right hemidiaphragm. Underlying right lower lung pneumonia cannot be excluded Approved by:Sae Mar on 08/15/2017 8:20 AM EST. I, Nina Beaver, have reviewed the images and report and concur with these findings. Electronically signed by:Nina Beaver. Transcribed by: [email or web address], User Resident: SAE MARElectronically Signed by: NINA BEAVER @ 08/15/2017 10:25 AMI personally read this/these film(s) with this residentMiami Valley HospitalComment on above:Order Comment: R/O EffusionBASIC METABOLIC PANELon 19-29-4868Ycctlhl9.6 mg/dLNormal8.6-10.3The Peoples HospitalComment on above:Order Comment: No: Do not add to previous drawPerformed By: #### 04876, 02064 ####[facility] [place] [address], KIPWhmyetak601 mmol/YAxzyyf04-859Zpm Peoples HospitalComment on above:Order Comment: No: Do not add to previous draw Performed By: #### 19900, 87424 ####[facility] [place] [address], HNFUA509 mmol/AIbldyr73-10Pvi [facility]oples HospitalComment on above:Order Comment: No: Do not add to previous drawPerformed By: #### 87776, 29663 ####[facility] [place] [address], USACreatinine0.60 mg/dLNormal0.60-1.20The [facility]oples HospitalComment on above:Order Comment: No: Do not add to previous drawPerformed By: #### 55336, 89195 ####[facility] [place] [address], USAeGFR (black) mL/min/{1.73_m2}Normal>60The Peoples HospitalComment on above:Order Comment: No: Do not add to previous drawResult Comment: Calculation may not be valid for patients over 70 yearsPerformed By: #### 71054, 24255 ####[facility] [place] [address], [place] eGFR (non-black)mL/min/{1.73_m2}Normal>60The [facility] Comment on above:Order Comment: No: Do not add to previous drawResult Comment: Calculation may not be valid for patients over 70 yearsPerformed By: #### 88249, 14128 ####[facility] [place] [address], USAGlucose mass conc81 mg/iDIawmms77-054Uev [facility] HospitalComment on above:Order Comment: No: Do not add to previous drawPerformed By: #### 27913, 03789 ####[facility] [place] [address], USAPotassium molar conc3.0 mmol/LLow3.5-5.1The Peoples HospitalComment on above:Order Comment: No: Do not add to previous drawPerformed By: #### 49612, 33825 ####[facility] [place] [address], DISIzpzvq986 mmol/HUvbcac894-341Fbk [facility] HospitalComment on above:Order Comment: No: Do not add to previous drawPerformed By: #### 13224, 55327 ####[facility] [place] [address], USAUrea usdtnjse95 mg/dL Normal7-25The Peoples HospitalComment on above:Order Comment: No: Do not add to previous drawPerformed By: #### 28238, 45800 ####[facility] [place] [address], USACBC COMPLETE BLOOD COUNTon 42-40-1954Phkpxwttlvv distribution width Auto Ratio (RBC)14.9 %Normal 11.5-15.0The Peoples HospitalComment on above:Order Comment: No: Do not add to previous drawPerformed By: #### 91898, 82505 ####[facility] [place] [address], USAErythrocytes (RBC) 3.80 10*6/uLNormal3.80-5.00The [facility]oples HospitalComment on above:Order Comment: No: Do not add to previous drawPerformed By: #### 93216, 87150 ####[facility] [place] [address], USAErythrocytes (RBC)0 %Normal0-0The [facility] Comment on above:Order Comment: No: Do not add to previous drawPerformed By: #### 67805, 36257 ####[facility] [place] [address], [facility] MEDICAL CENTERHematocrit (HCT)34.3 %Low36.0-45.0The Peoples HospitalComment on above:Order Comment: No: Do not add to previous drawPerformed By: #### 85364, 49133 ####[facility] [place] [address], [facility] MEDICAL CENTERHemoglobin mass conc (Bld)11.7 g/dLLow 12.0-15.0The Peoples HospitalComment on above:Order Comment: No: Do not add to previous drawPerformed By: #### 98092, 10610 ####[facility] [place] [address], HHBVNZ40.8 pgNormal 27.0-33.0The Peoples HospitalComment on above:Order Comment: No: Do not add to previous drawPerformed By: #### 75390, 07173 ####[facility] [place] [address], [facility] MEDICAL CENTERMCHC mass conc (RBC)34.1 g/jIRvhtiq23.0-35.0The Peoples HospitalComment on above:Order Comment: No: Do not add to previous drawPerformed By: #### 96978, 61237 ####[facility] [place] [address], NAPSGE49.3 lTXqbtgh13.0-98.0[facility] Comment on above:Order Comment: No: Do not add to previous drawPerformed By: #### 23895, 33164 ####[facility] [facility] [place] [address], USAPLAT GOB597 10*3/sHAhr571-612Rbw Peoples HospitalComment on above:Order Comment: No: Do not add to previous draw Performed By: #### 78353, 41071 ####[facility] [facility] [place] [address], [facility] MEDICAL CENTERWBC (Leukocytes)11.5 10*3/uLHigh4.0-10.6The Peoples HospitalComment on above:Order Comment: No: Do not add to previous drawPerformed By: #### 26041, 68055 ####[facility] [facility] [place] [address], USAMAGNESIUM BLOODon 01-13-3018Alailigiu5.9 mg/dLNormal1.9-2.7[facility] Comment on above:Order Comment: No: Do not add to previous drawPerformed By: #### 32630, 09686 ####[facility] [facility] [place] [address], USAPHOSPHORUS BLOODon 22-07-0930Skawzdmke9.5 mg/dLNormal 2.5-5.0The Peoples HospitalComment on above:Order Comment: No: Do not add to previous drawPerformed By: #### 08936, 78333 ####[facility] [facility] [place] [address], [facility] MEDICAL CENTERPORTABLE CHEST 1 VIEWon 29-20-9159UHDSTQYY CHEST 1 VIEWUnSelect Medical Specialty Hospital - CantonDepartment of Jouvkesha[address] [place] [id number] Carlos adam Name: JUDITH LAND : 1945Sex: FAge: Race: WhiteMRN: [id number]. Location: [id number] Status: IVisit #: [id number] Date: 08/14/2017 8:00:00 AMCompleted Date: 08/14/2017 08:34 AMRequesting Provider: JOSH PALMER Attending Provider: ALEXANDER CABALLERO Report Copy To: Signs & Symptoms: O2 DesaturationHistory: Patient history not availableComments: R/O AtelectasisExam: PORTABLE CHEST 1 VIEWAccession #: [id number] =======PORTABLE CHEST 1 VIEW 08/14/2017 8:34 AM EST SIGNS AND SYMPTOMS: O2 Desaturation TECHNOLOGIST COMMENTS: shortness of breath QUESTION FOR THE RADIOLOGIST: R/O Atelectasis PROTOCOL: AP(PA) view was obtained. COMPARISON: Chest radiograph August 12, 2017, August 11, 2017, July 21, 2017. FINDINGS: C ardiomediastinal silhouette is within normal limits.No pulmonary vascular [...] findings. Electronically signed by:Yeimi Nascimento. Transcribed by: [id number], User Resident: SAE MARElectronically Signed by: YEIMI NASCIMENTO @ 08/14/2017 09:18 PMI personally read this/these film(s) with this [facility] Hospital at SouthwoodsComment on above:Order Comment: R/O AtelectasisBASIC METABOLIC PANELon 65-14-1713Aufmcpk3.4 mg/dLLow8.6-10.3The Peoples HospitalComment on above:Order Comment: No: Do not add to previous draw Performed By: #### 22874, 49387 ####[facility] [place] [address], HSXDnsbsssm266 mmol/IAsnr45-571Vte Peoples HospitalComment on above:Order Comment: No: Do not add to previous drawPerformed By: #### 20262, 93531 ####[facility] [place] [address], COUZC982 mmol/EJiszah12-75Ffe Peoples HospitalComment on above:Order Comment: No: Do not add to previous drawPerformed By: #### 49021, 13774 ####[facility] [place] [address], USACreatinine0.62 mg/dLNormal0.60-1.20The Peoples HospitalComment on above:Order Comment: No: Do not add to previous drawPerformed By: #### 44552, 65389 ####[facility] [place] [address], USAeGFR (black) mL/min/{1.73_m2}Normal>60The Peoples HospitalComment on above:Order Comment: No: Do not add to previous drawResult Comment: Calculation may not be valid for patients over 70 yearsPerformed By: #### 76237, 66366 ####[facility] [place] [address], [place] eGFR (non-black)mL/min/{1.73_m2}Normal>60The [facility] Comment on above:Order Comment: No: Do not add to previous drawResult Comment: Calculation may not be valid for patients over 70 yearsPerformed By: #### 04629, 26826 ####[facility] [place] [address], USAGlucose mass conc99 mg/iOWhkqag75-338Dlt Peoples HospitalComment on above:Order Comment: No: Do not add to previous drawPerformed By: #### 62777, 17512 ####[facility] [place] [address], USAPotassium molar conc3.2 mmol/LLow3.5-5.1The Peoples HospitalComment on above:Order Comment: No: Do not add to previous drawPerformed By: #### 80759, 15508 ####[facility] [place] [address], XYCOgvnhf455 mmol/SEnzjkf669-036Ylh Peoples HospitalComment on above:Order Comment: No: Do not add to previous drawPerformed By: #### 43675, 99073 ####[facility] [facility] [place] [address], USAUrea mrralidj92 mg/dL Normal7-25The Peoples HospitalComment on above:Order Comment: No: Do not add to previous drawPerformed By: #### 31053, 84834 ####[facility] [facility] [place] [address], USACBC COMPLETE BLOOD COUNTon 42-77-0627Eepldxxdzul distribution width Auto Ratio (RBC)15.9 %High 11.5-15.0The Peoples HospitalComment on above:Order Comment: No: Do not add to previous drawPerformed By: #### 63642, 28437 ####[facility] [place] [address], USAErythrocytes (RBC)0 %Normal0-0The Peoples HospitalComment on above:Order Comment: No: Do not add to previous drawPerformed By: #### 50218, 65731 ####[facility] [place] [address], [facility] MEDICAL CENTERErythrocytes (RBC) 3.76 10*6/uLLow3.80-5.00The Peoples HospitalComment on above: Order Comment: No: Do not add to previous drawPerformed By: #### 94187, 04800 ####[facility] [facility] [place] [address], [facility] Hematocrit (HCT)34.3 %Low36.0-45.0The Peoples HospitalComment on above:Order Comment: No: Do not add to previous drawPerformed By: #### 15987, 25992 ####[facility] [facility] [place] [address], [facility] MEDICAL CENTERHemoglobin mass conc (Bld)11.4 g/dLLow12.0-15.0The Peoples HospitalComment on above:Order Comment: No: Do not add to previous drawPerformed By: #### 18848, 30751 ####[facility] [facility] [place] [address], LJWTZH80.3 pmDbfgcy04.0-33.0The Peoples HospitalComment on above:Order Comment: No: Do not add to previous drawPerformed By: #### 05132, 73821 ####[facility] [facility] [place] [address], [facility] CENTERMCHC mass conc (RBC)33.2 g/gUGfjddf09.0-35.0 The Peoples HospitalComment on above:Order Comment: No: Do not add to previous drawPerformed By: #### 79080, 77888 ####[facility] [facility] [place] [address], FNOSWW25.2 kSQfisxl38.0-98.0 The Peoples HospitalComment on above:Order Comment: No: Do not add to previous drawPerformed By: #### 14399, 28042 ####[facility] [place] [address], USAPLAT CNT95 10*3/uLLow 150-400The Peoples HospitalComment on above:Order Comment: No: Do not add to previous drawPerformed By: #### 00336, 79757 ####[facility] [place] [address], [facility] CENTERWBC (Leukocytes)9.1 10*3/uLNormal4.0-10.6The Peoples HospitalComment on above: Order Comment: No: Do not add to previous drawPerformed By: #### 90572, 66104 ####[facility] [facility] [place] [address], [facility] MAGNESIUM BLOODon 58-66-1071Blzohcozx8.8 mg/dLLow1.9-2.7The Peoples HospitalComment on above:Order Comment: No: Do not add to previous draw Performed By: #### 04531, 27203 ####[facility] [place] [address], [facility] CENTERPHOSPHORUS BLOODon 14-41-7197Apdtihvsc9.9 mg/dLLow2.5-5.0The Peoples HospitalComment on above:Order Comment: No: Do not add to previous drawPerformed By: #### 28480, 98788 ####[facility] [place] [address], [facility] BASIC METABOLIC PANELon 27-87-5090Nofkpoo6.4 mg/dLLow8.6-10.3The Peoples HospitalComment on above:Order Comment: No: Do not add to previous drawPerformed By: #### 41610, 12778 ####[facility] [facility] [place] [address], ACCYgqitxwm714 mmol/LSyep76-238Uvt Peoples HospitalComment on above:Order Comment: No: Do not add to previous drawPerformed By: #### 67661, 58723 ####[facility] [place] [address], KQOWZ900 mmol/RYslvpw03-43Neb Peoples HospitalComment on above:Order Comment: No: Do not add to previous drawPerformed By: #### 77327, 76012 ####[facility] [place] [address], USACreatinine0.75 mg/dLNormal0.60-1.20The Peoples HospitalComment on above:Order Comment: No: Do not add to previous drawPerformed By: #### 06719, 63432 ####[facility] [place] [address], USAeGFR (black) mL/min/{1.73_m2}Normal>60The Peoples HospitalComment on above:Order Comment: No: Do not add to previous drawResult Comment: Calculation may not be valid for patients over 70 yearsPerformed By: #### 60565, 43702 ####[facility] [place] [address], [place] eGFR (non-black)mL/min/{1.73_m2}Normal>60[facility] Comment on above:Order Comment: No: Do not add to previous drawResult Comment: Calculation may not be valid for patients over 70 yearsPerformed By: #### 45883, 44276 ####[facility] [place] [address], [facility] CENTERGlucose mass vvpv325 mg/xPZmkh29-368Wvz Peoples HospitalComment on above:Order Comment: No: Do not add to previous drawPerformed By: #### 16166, 70356 ####[facility] [place] [address], USAPotassium molar conc3.6 mmol/LNormal3.5-5.1The Peoples HospitalComment on above:Order Comment: No: Do not add to previous drawPerformed By: #### 71267, 11721 ####[facility] [place] [address], NPONwccrm995 mmol/LNormal 136-145The Peoples HospitalComment on above:Order Comment: No: Do not add to previous drawPerformed By: #### 94062, 68415 ####[facility] [facility] [place] [address], USAUrea tggsjilp52 mg/dLNormal7-25The Peoples HospitalComment on above:Order Comment: No: Do not add to previous drawPerformed By: #### 55275, 60128 ####[facility] [place] [address].[place] [address], [facility] CBC COMPLETE BLOOD COUNTon 00-21-6639Twdkiaxcfer distribution width Auto Ratio (RBC)16.3 %High11.5-15.0The Peoples HospitalComment on above: Order Comment: No: Do not add to previous drawPerformed By: #### 89016, 90975 ####[facility] [place] [address], [facility] Erythrocytes (RBC)4.15 10*6/uLNormal3.80-5.00The Peoples HospitalComment on above:Order Comment: No: Do not add to previous drawPerformed By: #### 16186, 12410 ####[facility] [place] [address], [facility] MEDICAL CENTERErythrocytes (RBC)0 %Normal0-0The Peoples HospitalComment on above:Order Comment: No: Do not add to previous draw Performed By: #### 57564, 37091 ####[facility] [place] [address], [facility] CENTERHematocrit (HCT)37.6 %Mgzosv62.0-45.0The Peoples HospitalComment on above:Order Comment: No: Do not add to previous drawPerformed By: #### 55154, 38267 ####[facility] [place] [address], [facility] MED[facility] CENTERHemoglobin mass conc (Bld) 12.5 g/wZGwzqiv72.0-15.0The Peoples HospitalComment on above: Order Comment: No: Do not add to previous drawPerformed By: #### 76370, 60939 ####[facility] [address], [facility] MCH30.1 suAsidqj00.0-33.0The Peoples HospitalComment on above:Order Comment: No: Do not add to previous drawPerformed By: #### 08936, 44690 ####[facility] [place] [address], [facility] CENTERMCHC mass conc (RBC)33.2 g/xGYtepxv03.0-35.0The Peoples HospitalComment on above:Order Comment: No: Do not add to previous draw Performed By: #### 76094, 98444 ####[facility] [place] [address], NGBTZU23.6 fHVckxim45.0-98.0The Peoples HospitalComment on above:Order Comment: No: Do not add to previous drawPerformed By: #### 41798, 93129 ####[facility] [place] [address], [facility]ICAL CENTERPLAT CNT89 10*3/cGCct391-869Dyw Peoples HospitalComment on above:Order Comment: No: Do not add to previous drawPerformed By: #### 73840, 54059 ####[facility] [place] [address], [facility] MEDICAL CENTERWBC (Leukocytes)13.5 10*3/uLHigh4.0-10.6The Peoples HospitalComment on above:Order Comment: No: Do not add to previous drawPerformed By: #### 93214, 49263 ####[facility] [place] [address], USAHEMATOCRITon 08-12-2017 Hematocrit (HCT)37.6 %Sewscs94.0-45.0[facility] Comment on above:Order Comment: No: Do not add to previous drawPerformed By: #### 51915, 21379 ####[facility] [facility] [place] [address], [facility] CENTERHEMOGLOBINon 00-61-1391Phaugspukv mass conc (Bld)12.6 g/nYEaclyu27.0-15.0The Peoples HospitalComment on above:Order Comment: No: Do not add to previous drawLAB DRAW NOW - PER RN LYNNPerformed By: #### 09825, 69241 ####[facility] [facility] [place] [address], USAMAGNESIUM BLOODon 32-88-1494Othrhdhiz4.9 mg/dLNormal 1.9-2.7The Peoples HospitalComment on above:Order Comment: No: Do not add to previous drawPerformed By: #### 62163, 18821 ####[facility] [facility] [place] [address], USAPHOSPHORUS BLOODon 26-34-3346Rjvhovtjl2.1 mg/dLLow2.5-5.0[facility] Comment on above:Order Comment: No: Do not add to previous drawPerformed By: #### 34549, 89250 ####[facility] [place] [address].[place] [address], USAPORTABLE CHEST 1 VIEWon 71-96-1102ASERNPEE CHEST 1 VIEW Pe[facility] HospitalDepartment of Pmpalitzv[address] [place] [address] Patien t Name: JUDITH LAND : 1945Sex: FAge: Race: WhiteMRN: [id number]. Location: [id number] Status: IVisit #: [id number] Date: 08/12/2017 7:00:00 AMCompleted Date: 08/12/2017 09:16 AMRequesting Provider: SHANON HERNANDEZ Attending Provider: ALEXANDER CABALLERO Report Copy To: Signs & Symptoms: O2 DesaturationHistory: Patient history not availableComments: R/O AtelectasisExam: PORTABLE CHEST 1 VIEWAccession #: [id number] PORTABLE CHEST 1 VIEW 08/12/2017 9:16 AM EST SIGNS AND SYMPTOMS: O2 Desaturation TECHNOLOGIST COMMENTS: SOB QUESTION FOR THE RADIOLOGIST: R/O Atelectasis PROTOCOL: AP(PA) view was obtained.COMPARISON: Chest radiograph August 11, 2017 FINDINGS: Bibasilar [...] findings. Electronically signed by:Yeimi Nascimento. Transcribed by: [id number], User Resident: ANDRZEJ TAYLORElectronically Signed by: YEIMI NASCIMENTO @ 08/12/2017 12:27 PMI personally read this/these film(s) with this [facility] Hospital at SouthwoodsComment on above: Order Comment: R/O AtelectasisALCOHOLon 25-89-2549MdcmwvtPGHA DETECTEDMiami Valley HospitalComment on above:Result Comment: Divide by 1000 to convert mg/dL to percent. Example: 100mg/dL = 0.1%.Performed By: #### 35076, ####[facility] [place] [address], [facility] CENTERAPTTon 35-69-9956hRBF36.8 sHigh25.0-35.0The Peoples HospitalComment on above:Order Comment: No: Do not add to previous draw Result Comment: ALL RESULTS MUST BE INTERPRETED WITH RESPECT TO BLOOD DRAWING ARTIFACTOR DILUTION ERROR OF ANTICOAGULANT AT THE TIME OF SAMPLING.THE APTT SHOULD NOT BE USED TO MONITOR UNFRACTIONATED HEPARIN THERAPY, THIS LABORATORY NO LONGER HAS AN ESTABLISHED THERAPEUTIC RANGE BASEDON THE APTT. IT IS RECOMMENDED THAT THE UFH - HEPARIN ASSAY (ANTI-XAACTIVITY) BE USED FOR THIS PURPOSE.Performed By: #### 79432, 89674 ####[facility] [place] [address], PTHwNKK03.2 kZvukaf54.0-35.0The Peoples HospitalComment on above:Result Comment: ALL RESULTS MUST BE INTERPRETED WITH RESPECT TO BLOOD DRAWING ARTIFACTOR DILUTION ERROR OF ANTICOAGULANT AT THE TIME OF SAMPLING.THE APTT SHOULD NOT BE USED TO MONITOR UNFRACTIONATED HEPARIN THERAPY, THIS LABORATORY NO LONGER HAS AN ESTABLISHED THERAPEUTIC RANGE BASEDON THE APTT. IT IS RECOMMENDED THAT THE UFH - HEPARIN ASSAY (ANTI-XAACTIVITY) BE USED FOR THIS PURPOSE.Performed By: #### 77241, 67588 ####[facility] [place] [address], [facility] ARTERIAL BLOOD GAS WITH ICAon 38-22-5512DVTM EXCESS-7 mmol/LLow-2-2The Peoples HospitalComment on above:Performed By: #### 42779, 29303 ####[facility] [place] [address], USABicarbonate (HCO3)18 mmol/CRla88-25Fih Peoples HospitalComment on above:Performed By: #### 28726, ####[facility] [place] [address], IEFKR527 woQsTbv57-58Eft Pe[facility] HospitalComment on above:Performed By: #### 20637, ####[facility] [place] [address], USADELIVERY SYSTEMSNoKettering Health HamiltonComment on above:Performed By: #### 24095, ####[facility] [place] [address], EKHOMA504 %Ppunlj42-312Spr Peoples HospitalComment on above:Performed By: #### 95495, ####[facility] [place] [address], [place] IONIZED CALCIUM1.13 mmol/LNormal1.13-1.32The [facility] Comment on above:Performed By: #### 91373, ####[facility] [place] [address], USAMIN VOLUME7.2NormalThe Peoples HospitalComment on above:Performed By: #### 61233, 82239 ####[facility] [place] [address], USAMODALITYACNoKettering Health HamiltonComment on above:Performed By: #### 93189, 49076 ####[facility] [place] [address], USAO2 godnbbcqpb39.5 %Fwjceq79.0-97.0 The Peoples HospitalComment on above:Performed By: #### 08623, 44562 ####[facility] [place] [address], USAOxygen in arterial qmuzz167 mm[Hg]Critically eaci18-053Hmd Peoples HospitalComment on above:Performed By: #### 75337, 03961 ####[facility] [place] [address], USAPEEP5.0 HTF75MmtlwcBlv Peoples HospitalComment on above:Performed By: #### 48977, 46221 ####[facility] [place] [address], USAPF SLCNX275 dbQsVptf48-266Dsx Pe[facility] HospitalComment on above:Performed By: #### 96704, ####[facility] [place] [address], USApH of blood7.33 [pH]Low7.35-7.45The Peoples HospitalComment on above:Performed By: #### 62003, 79226 ####[facility] [place] [address], USARespiratory rate16 /min NormalThe Peoples HospitalComment on above:Performed By: #### 38737, 37378 ####[facility] [place] [address], USATIDAL VOLUME (VT) BP029UmffttCxiSelect Medical Specialty Hospital - Board[facility], IncComment on above:Performed By: #### 64645, 38888 ####[facility] [place] [address], USABASE EXCESS-9 mmol/LLow -2-2The Peoples HospitalComment on above:Order Comment: RESULTS CHECKED AND CALLED. ACCURATELY READ BACK BY STROUDPerformed By: #### 98270, 91823 ####[facility] [place] [address], USABicarbonate (HCO3)18 mmol/RLjw88-68Xbw Pe[facility] HospitalComment on above:Order Comment: RESULTS CHECKED AND CALLED. ACCURATELY READ BACK BY STROUDPerformed By: #### 59595, ####[facility] [place] [address], SOCTT370 guQjCpgjio81-40Off Pe[facility] HospitalComment on above:Order Comment: RESULTS CHECKED AND CALLED. ACCURATELY READ BACK BY STROUDPerformed By: #### 52967, ####[facility] [place] [address], USAIONIZED CALCIUM1.05 mmol/LLow1.13-1.32The Pe[facility] HospitalComascension [facility] hospital on above:Order Comment: RESULTS CHECKED AND CALLED. ACCURATELY READ BACK BY STROUDPerformed By: #### 89271, ####[facility] [place] [address], USAO2 aryyduxgcp27.9 %Normal 94.0-97.0The Pe[facility] HospitalComascension [facility] j[facility] hospital on above:Order Comment: RESULTS CHECKED AND CALLED. ACCURATELY READ BACK BY STROUDPerformed By: #### 87181, ####[facility] [place] [address], USAOxygen in arterial mm[Hg]Critically hjyc08-626Qlq [facility] HospitalComascension [facility] on above:Order Comment: RESULTS CHECKED AND CALLED. ACCURATELY READ BACK BY STROUDPerformed By: #### 55659, ####[facility] [place] [address], USApH of blood7.22 [pH]Critically low7.35-7.45The Pe[facility] HospitalComascension [facility] hospital on above:Order Comment: RESULTS CHECKED AND CALLED. ACCURATELY READ BACK BY STROUDPerformed By: #### 04543, ####[facility] [place] [address], USABASIC METABOLIC PANELon 20-11-2182Ofrkwwp6.1 mg/dLLow8.6-10.3The Peoples HospitalComment on above:Order Comment: No: Do not add to previous drawPerformed By: #### 22811, ####[facility] [place] [address], BBPZouxnugd162 mmol/COwqi11-090Lzj Pe[facility] HospitalComment on above:Order Comment: No: Do not add to previous draw Performed By: #### 53430, ####[facility] [place] [address], USACreatinine0.85 mg/dLNormal0.60-1.20The Peoples HospitalComment on above:Order Comment: No: Do not add to previous drawPerformed By: #### 67184, ####[facility] [place] [address], USAGlucose mass avbf524 mg/dL Vnbu78-742Muc [facility] HospitalComment on above:Order Comment: No: Do not add to previous drawPerformed By: #### 35660, ####[facility] [place] [address], USAPotassium molar conc4.9 mmol/LNormal3.5-5.1The Peoples HospitalComment on above:Order Comment: No: Do not add to previous drawPerformed By: #### 37886, ####[facility] [place] [address], ICGRyiiww347 mmol/BLphorj734-503Huz [facility] Comment on above:Order Comment: No: Do not add to previous drawPerformed By: #### 87918, ####[facility] [place] [address], USAUrea iwjmbabj96 mg/dLNormal7-25The Pe[facility] HospitalComment on above:Order Comment: No: Do not add to previous draw Performed By: #### 28120, ####[facility] [place] [address], USACalcium7.9 mg/dLLow8.6-10.3The Peoples HospitalComment on above:Order Comment: No: Do not add to previous drawPerformed By: #### [id number], ####[facility] [place] [address], IRQUgnzsnmh504 mmol/YVnji87-611Xez Peoples HospitalComment on above:Order Comment: No: Do not add to previous drawPerformed By: #### [id number], ####[facility] [place] [address], NEYAG624 mmol/LLiwwtp90-53Ohm Peoples HospitalComment on above:Order Comment: No: Do not add to previous drawPerformed By: #### [id number], ####[facility] [place] [address], USACreatinine0.68 mg/dLNormal0.60-1.20The Peoples HospitalComment on above:Order Comment: No: Do not add to previous drawPerformed By: #### [id number], ####[facility] [place] [address], USAeGFR (black) mL/min/{1.73_m2}Normal>60The Peoples HospitalComment on above:Order Comment: No: Do not add to previous drawResult Comment: Calculation may not be valid for patients over 70 yearsPerformed By: #### [id number], ####[facility] [place] [address], [place] eGFR (non-black)mL/min/{1.73_m2}Normal>60[facility] Comment on above:Order Comment: No: Do not add to previous drawResult Comment: Calculation may not be valid for patients over 70 yearsPerformed By: #### [id number], ####[facility] [place] [address], [facility] MEDICAL CENTERGlucose mass bbuh589 mg/cGFylt49-970Tgx Peoples HospitalComment on above:Order Comment: No: Do not add to previous drawPerformed By: #### 35973, ####[facility] [place] [address], [facility] MEDICAL CENTERPotassium molar conc3.3 mmol/LLow3.5-5.1The Peoples HospitalComment on above:Order Comment: No: Do not add to previous drawPerformed By: #### 19830, ####[facility] [place] [address], CZWTckdus420 mmol/SLleyas294-150Thh Peoples HospitalComment on above:Order Comment: No: Do not add to previous drawPerformed By: #### 61076, ####[facility] [facility] [place] [address], USAUrea wmhvrurv68 mg/dL Normal7-25The Peoples HospitalComment on above:Order Comment: No: Do not add to previous drawPerformed By: #### 29902, ####[facility] [place] [address], [facility]ICAL CENTERCBC W/DIFFon [id number] BASOPHILS0.0 10*3/uLNormal0.0-0.2The Peoples HospitalComment on above:Performed By: #### 01983, ####[facility] [facility] [place] [address], [facility] CENTERABS IMM GRANS0.0 10*3/uL Normal0.0-0.2The Peoples HospitalComment on above:Performed By: #### 80755, ####[place] [address] [place] [address], [facility] MED[facility] CENTERBasophils Auto #/vol (Bld)0.1 %Normal0.0-1.0The Peoples HospitalComment on above:Performed By: #### 23975, ####[address] [place] [address], [facility] CENTEREosinophils0.0 10*3/uLNormal0.0-0.5The Peoples HospitalComment on above:Performed By: #### 31391, ####[address] [place] [address], [facility] CENTEREosinophils/100 leukocytes 0.1 %Normal0.0-6.0The Peoples HospitalComment on above: Performed By: #### 06642, ####[address] [place] [address], [facility] MEDICAL CENTERErythrocyte distribution width Auto Ratio (RBC)15.1 %High11.5-15.0The Peoples HospitalComascension [facility] on above: Performed By: #### 64102, ####[address] [place] [address], [facility] CENTERErythrocytes (RBC)0 %Normal0-0The Peoples HospitalComment on above:Performed By: #### 81997, ####[address] [place] [address], [facility] Erythrocytes (RBC)4.46 10*6/uLNormal3.80-5.00The Peoples HospitalComment on above:Performed By: #### 59608, ####[address] [place] [address], [facility] CENTERHematocrit (HCT)40.3 % Uevbrx69.0-45.0The Peoples HospitalComment on above:Performed By: #### 29072, ####[facility] [place] [address], [facility] MED[facility] CENTERHemoglobin mass conc (Bld)13.5 g/cSOowgvm90.0-15.0The Peoples HospitalComment on above:Performed By: #### 88860, ####[facility] [place] [address], USAIMMATURE GRANS0.2 %Normal0.0-1.0The Peoples HospitalComment on above:Performed By: #### 07704, ####[facility] [place] [address], USALymphocytes0.9 10*3/uLLow 1.2-4.0The Peoples HospitalComment on above:Performed By: #### 78321, ####[facility] [place] [address], USALymphocytes/100 leukocytes5.8 %Low20.0-45.0The Peoples HospitalComment on above:Performed By: #### 22758, ####[facility] [facility] [facility] [place] [address], CTQJAB88.3 qhVruaoc00.0-33.0The [facility] Comment on above:Performed By: #### 17324, ####[facility] [place] [address], [facility] CENTERMCHC mass conc (RBC)33.5 g/jCTyscbp96.0-35.0The Peoples HospitalComment on above: Performed By: #### 60784, ####[facility] [place] [address], RJPKYZ82.4 aFYuyswz40.0-98.0The Peoples HospitalComment on above:Performed By: #### 13287, ####[facility] [place] [address], [place] Monocytes0.7 10*3/uLNormal0.1-1.0The Peoples HospitalComment on above:Performed By: #### 86583, ####[facility] [facility] [facility] [place] [address], USAMONOS4.6 %Low5.0-12.0The Peoples HospitalComment on above:Performed By: #### 84963, ####[place] [address] [facility] [place] [address], EJIFijersaauvx97.6 10*3/uLHigh1.6-7.6The Peoples HospitalComment on above:Performed By: #### 99270, ####[place] [address] [facility] [place] [address], [facility] MED[facility] CENTERNeutrophils/100 leukocytes 89.2 %High40.0-72.0The Peoples HospitalComment on above: Performed By: #### 54712, ####[place] [address] [facility] [place] [address], USAPLAT CNT94 10*3/pRSvv364-279Tkq Peoples HospitalComment on above:Result Comment: P = 126Performed By: #### 33699, ####[address] [place] [address], USAWBC (Leukocytes)15.2 10*3/uLHigh4.0-10.6The Peoples HospitalComment on above:Performed By: #### 40255, ####[facility] [place] [address], USAABS BASOPHILS0.0 10*3/uLNormal0.0-0.2The Peoples HospitalComment on above: Performed By: #### 10859 ####[facility] [place] [address], [facility] CENTERABS IMM GRANS0.1 10*3/uLNormal0.0-0.2The Peoples HospitalComment on above:Performed By: #### 08991 ####[facility] [place] [address], [facility] CENTERBasophils Auto #/vol (Bld)0.3 %Normal0.0-1.0The Peoples HospitalComment on above:Performed By: #### 34044 ####[facility] [place] [address], [facility] CENTEREosinophils0.0 10*3/uLNormal0.0-0.5The Peoples HospitalComment on above:Performed By: #### 24398 ####[facility] [place] [address], [facility] Eosinophils/100 leukocytes0.2 %Normal0.0-6.0The Peoples HospitalComment on above:Performed By: #### 52868 ####[facility] [place] [address], [facility] CENTERErythrocyte distribution width Auto Ratio (RBC)14.3 %Zeddiu96.5-15.0[facility] Comment on above:Performed By: #### 68711 ####[facility] [facility] [place] [address], [facility] CENTERErythrocytes (RBC)3.50 10*6/uLLow 3.80-5.00The Peoples HospitalComment on above:Performed By: #### 06404 ####[facility] [place] [address].[place] [address], [facility] CENTERErythrocytes (RBC)0 %Normal0-0The [facility] Comment on above:Performed By: #### 24330 ####[facility] [place] [address], [facility] CENTERHematocrit (HCT)32.5 %Low36.0-45.0 The Peoples HospitalComment on above:Performed By: #### 30250 ####[facility] [place] [address], [facility] Hemoglobin mass conc (Bld)10.9 g/dLLow12.0-15.0The Peoples HospitalComment on above:Performed By: #### [address]93 ####[place] [address], [facility] MED[facility] CENTERIMMATURE GRANS0.4 %Normal0.0-1.0 The Peoples HospitalComment on above:Performed By: #### 19324 ####[place] [address], [facility] Lymphocytes2.3 10*3/uLNormal1.2-4.0[facility] Comment on above:Performed By: #### 53027 ####[facility] [place] [address], [facility] CENTERLymphocytes/100 evzmieiseu91.6 % Low20.0-45.0The Peoples HospitalComment on above:Performed By: #### 18523 ####[facility] [place] [address], HIUZQS42.1 kfEnftfe18.0-33.0The [facility] Comment on above:Performed By: #### 64720 ####[place] [address] [place] [address], [facility] CENTERMCHC mass conc (RBC)33.5 g/dL Allttv72.0-35.0The Peoples HospitalComment on above:Performed By: #### 84874 ####[facility] [place] [address], VEHGVN92.9 bWMuqtat32.0-98.0The Peoples HospitalComment on above:Performed By: #### 88209 ####[facility] [facility] [place] [address], [facility] CENTERMonocytes0.8 10*3/uL Normal0.1-1.0The Peoples HospitalComment on above:Performed By: #### 38503 ####[facility] [facility] [place] [address], [facility] CENTERMONOS6.1 %Normal5.0-12.0[facility] Comment on above:Performed By: #### 85743 ####[facility] [facility] [place] [address], [facility] CENTERNeutrophils9.7 10*3/uLHigh1.6-7.6 The Peoples HospitalComment on above:Performed By: #### 23937 ####[facility] [place] [address], [facility] Neutrophils/100 lscmilyvdq45.4 %High40.0-72.0The Peoples HospitalComment on above:Performed By: #### 09112 ####[facility] [facility] [place] [address], USAPLAT IOX666 10*3/tQAgz013-538Qvu Peoples HospitalComment on above:Performed By: #### 10012 ####[facility] [place] [address], [facility] WBC (Leukocytes)12.9 10*3/uLHigh4.0-10.6[facility] Comment on above:Performed By: #### 43407 ####[facility] [facility] [address], [facility] CENTERCOMP METABOLIC PANELon 08-11-2017 Alanine aminotransferase (ALT)8 U/LNormal7-52The Peoples HospitalComment on above:Performed By: #### 91857, 53947 ####[facility] [place] [address], USAAlbumin2.6 g/dLLow3.5-5.7 The Peoples HospitalComment on above:Performed By: #### 20917, 41580 ####[facility] [place] [address], USAALKALINE BGRPKW21 IU/JPrbzyc96-755Rpn Peoples HospitalComment on above:Performed By: #### 38519, 02434 ####[facility] [place] [address], USAAspartate aminotransferase (AST)11 U/WRns86-43Hvs Peoples HospitalComment on above: Performed By: #### 81596, 66547 ####[facility] [place] [address], USABilirubin (total)0.7 mg/dLNormal0.3-1.0The Peoples HospitalComment on above:Performed By: #### 68369, 22219 ####[facility] [place] [address], USACalcium7.4 mg/dLLow8.6-10.3[facility] Comment on above:Performed By: #### 22405, 93819 ####[facility] [place] [address], GCBUtambfba227 mmol/LHigh 98-107The Peoples HospitalComment on above:Performed By: #### 05675, 12731 ####[facility] [place] [address], FFSTU100 mmol/BNiavls71-68Cuf [facility] Comment on above:Performed By: #### 42012, 23779 ####[facility] [place] [address], USACreatinine0.83 mg/dLNormal 0.60-1.20The Peoples HospitalComment on above:Performed By: #### 03320, 19932 ####[facility] [place] [address], USAeGFR (black)mL/min/{1.73_m2}Normal>60The Peoples HospitalComment on above:Result Comment: Calculation may not be valid for patients over 70 yearsPerformed By: #### 29397, 03258 ####[facility] [place] [address], USAeGFR (non-black) mL/min/{1.73_m2}Normal>60The Peoples HospitalComment on above:Result Comment: Calculation may not be valid for patients over 70 years Performed By: #### 39107, 88871 ####[facility] [place] [address], USAGlucose mass pyqo602 mg/iXBnxj32-132Ohs Peoples HospitalComment on above:Performed By: #### 22822, 02807 ####[facility] [place] [address], USAPotassium molar conc4.0 mmol/LNormal3.5-5.1The Peoples HospitalComment on above:Performed By: #### 69134, 86777 ####[facility] [place] [address], USAProtein4.1 g/dLLow 6.0-8.3The Peoples HospitalComment on above:Performed By: #### 57988, 37887 ####[facility] [place] [address], ZMDOijbfe746 mmol/UQwbsqk842-890Nzz Peoples HospitalComment on above:Performed By: #### 83254, 16890 ####[facility] [place] [address], USAUrea plajctpg11 mg/dLNormal7-25The Peoples HospitalComment on above:Performed By: #### 50657, 18493 ####[facility] [place] [address], [facility] CENTERConsultationon [id number]#: [id number] Name: Judith Land Date of Service: 08/10/2017 Room #: SIC [id number] Birthdate: 1945 Referring Physician: JAYE FOR CONSULTATION: Critical care management status post splenectomy,ventilatory management.HISTORY OF PRESENT ILLNESS: Ms. Judith Land is a 72-year-old female witha history of hypertension, hyperlipidemia, diabetes, and COPD, whopresented as a transfer from [place], [place] with a traumatic brain injury.The patient reportedly fell, as [facility], in her home. She had the flu at that time and wasquite weak, dehydrated, and they said she had a very low potassium and wa sevaluated by her doctor at that time. She fell 2 times during that day athome without any loss of consciousness. She said that she just felt weak,had no confusion, and has had no issues at home since that time until shehad worsening abdominal pain and left shoulder blade/shoulder pain over thelastcouple of days. She presented to the hospital in [place], [place], and aCT abdomen and pelvis was obtained that demonstrated a grade 5 spleniclaceration. The patient was initially hemodynamically stable per reportsfrom the outside facility, however she became markedly hypotensive,unresponsive to multiple fluid boluses, and was transferred to [facility] as a level 1 trauma. [place]she [facility] [place], she had received 3 L of crystalloid and 4 units of blood atthat time and only transiently responded to this fluid resuscitation. Shewas hypotensive in the [facility] [place] andan emergent right femoral Cordis wasplaced for continued resuscitation and the patient was taken totheoperating room for emergent exploratory laparotomy, splenectomy for [...] chronic obstructivepulmonary disease, not on home O2; nxn-ndagqti-magtupyui diabetes mellitus,type 2; anxiety.PAST SURGICAL HISTORY: Hysterectomy, [...] cervical or supraclavicular lymphadenopathy. Neckis supple without masses.Oral cavity with endotracheal tube. Otherwise,mucous membranes are [...] clear urine.EXTREMITIES: No pedal edema.SKIN: Warm and dry.No lacerations, abrasions, contusions, or evidence ofexternal trauma [...] outside facilityreviewed with attending surgeon in [facility] [place] with evidence of rupturedspleen with blood products [...] past. GCS is 15reported in the [facility] [place], currently GCS is 3T, intubated and sedated.She [...] tolerated. Chestx-ray will be obtained to evaluate endotrach eal tube placement P.r.n.nebulizer treatments have been started [...] the setting ofcritical care status.Endocrine: History of hoi-wffsiyk-hurfafnrh diabetes mellitus, type 2, onhome metformin. We will hold metformin at this time. She will be startedon a sliding scale as needed for hyperglycemia. No history of any adrenalinsufficiency or thyroid disorders.Hematologic. Acute blood loss anemia, coagulopathy secondary to traumastatus post splenectomy. She has received a total of 16 units packed re dblood cell, 1 unit FFP, and 1 pole [...] was placed in emergent setting in [place] [place], this will be removed/replaced within 24 hours after placement.Peripheral IV x2. Monroe catheter for above listed indication.Gastrointestinal prophylaxis: Protonix 40 mg IV once daily for str essulcer prophylaxis.Venous thrombosis prophylaxis: External pneumatic compression devices areplaced, pharmacologic prophylaxis contraindicated at this time due to highrisk for bleed in setting of acute blood loss anemia. Ventilatorassociated pneumonia prophylaxis as listed above.The patient seen and examined with plan of care discussed with attending,Dr. Caballero.Electronically Signed by:Alexander Caballero M.D. 08/12/2017 05:12 P Alexander Caballero M.D. I personally sawthis patient on the day of the encounter, performed thekey portion(s) of the service and participated in the management andconfirm the resident's documentation. Please note there may be anadditional personal documentation from me. Date Dict: 08/11/2017/04:38 A/Pippa Gutierrez Trans: 08/11/2017 02:22 P/mmoDN_JN:[id number] Valley HospitalFRESH FROZEN PLASMA 2 UNITSon 45-89-7963QOASKOB CODE [id number] Health HamiltonComment on above:Order Comment: INR: 1.22 ,PTT: 27.2 at the time of order ;Indication: Activebleeding/invasive procedure with prolonged PT/PTT or INR > 1.6Performed By: #### 97036, ####[facility] [place] [address], [facility] CENTERPRODUCT CODE [id number] Hardin Memorial HospitalComment on above:Order Comment: INR: 1.22 ,PTT: 27.2 at the time of order ;Indication: Activebleeding/invasive procedure with prolonged PT/PTT or INR > 1.6Performed By: #### 13906, 87058 ####[facility] [facility] [place] [address], [facility] CENTERPRODUCT STATUS 1PSumma Health Akron CampusComment on above:Order Comment: INR: 1.22 ,PTT: 27.2 at the time of order ;Indication: Activebleeding/invasive procedure with prolonged PT/PTT or INR > 1.6Result Comment: Result changed by IF on 08/11/2017 00:27. The previous value was XX.Result changed by IF on 08/12/2017 02:00. The previous value was IS.Performed By: #### 09988, ####[facility] [place] [address], [facility] PRODUCT STATUS 2PSumma Health Akron CampusComment on above: Order Comment: INR: 1.22 ,PTT: 27.2 at the time of order ;Indication: Activebleeding/invasive procedure with prolonged PT/PTT or INR > 1.6Result Comment: Result changed by IF on 08/11/2017 03:17. The previous value was XM.Result changed by IF on 08/13/2017 02:00. The previous value was IS.Performed By: #### 24015, ####[facility] [place] [address], USAUNIT ABO 1L[facility] HospitalComment on above:Order Comment: INR: 1.22 ,PTT: 27.2 at the time of order ;Indication: Activebleeding/invasive procedure with prolonged PT/PTT or INR > 1.6Performed By: #### 75821, ####[facility] [place] [address], USAUNIT ABO 2L[facility] Memorial HospitalComment on above:Order Comment: INR: 1.22 ,PTT: 27.2 at the time of order ;Indication: Activebleeding/invasive procedure with prolonged PT/PTT or INR > 1.6Performed By: #### 59164, ####[facility] [place] [address], USAUNIT ID [id number]nt on above:Order Comment: INR: 1.22 ,PTT: 27.2 at the time of order ;Indication: Activebleeding/invasive procedure with prolonged PT/PTT or INR > 1.6Performed By: #### 55261, ####[facility] [place] [address], USAUNIT ID 2 [id number] Memorial HospitalComment on above: Order Comment: INR: 1.22 ,PTT: 27.2 at the time of order ;Indication: Activebleeding/invasive procedure with prolonged PT/PTT or INR > 1.6Performed By: #### 75486, ####[facility] [place] [address], USAUNIT 1PDayton VA Medical CenterComment on above:Order Comment: INR: 1.22 ,PTT: 27.2 at the time of order ;Indication: Activebleeding/invasive procedure with prolonged PT/PTT or INR > 1.6Performed By: #### 22563, ####[facility] [place] [address], USAUNIT 2NDoctors HospitalComment on above:Order Comment: INR: 1.22 ,PTT: 27.2 at the time of order ;Indication: Activebleeding/invasive procedure with prolonged PT/PTT or INR > 1.6Performed By: #### 24883, ####[facility] [place] [address], USAHEMATOCRITon 08-11-2017 Hematocrit (HCT)37.7 %Zjgypu31.0-45.0[facility] Comment on above:Order Comment: No: Do not add to previous drawPerformed By: #### 62200, ####[facility] [place] [address], USAHematocrit (HCT)34.8 %Low36.0-45.0The Peoples HospitalComment on above:Order Comment: No: Do not add to previous drawPerformed By: #### 06387, ####[facility] [place] [address], USAHEMOGLOBINon 85-08-4513Jhprjcnsod mass conc (Bld)12.7 g/aOLdkkzw95.0-15.0The [facility]oples HospitalComment on above:Order Comment: No: Do not add to previous drawLAB DRAW NOW - PER CECY MCELROY Performed By: #### 84451, ####[facility] [facility] [facility] [place] [address], [facility] CENTERHemoglobin mass conc (Bld)11.8 g/dLLow 12.0-15.0The Pe[facility] HospitalComment on above:Order Comment: No: Do not add to previous drawPerformed By: #### 58798, ####[facility] [facility] [place] [address], USAHistory and Physicalon 44-39-3522Omltvvt and PhysicalMR#: [id number] Pt. Name: Judith Land Admitted: 08/11/2017 Date of : 1945 Attending Physician: Alexander Caballero M.D. Room #: SIC [id number] Discharge Date: HISTORY AND PHYSICALCHIEF COMPLAINT: Trauma [...] Thepatient had a CT scan done in thehospital that showed a splenic rupturewith active intraperitoneal bleeding. The patient was initially stable atthe outside hospital, however, she began to become unstable with systolicblood pressure in the 60s at 1 point. The patient was given a totalapproximately 3 L of fluid and 4 units of blood at the outside hospital.She had not been on any other blood products. [facility] [...] they were fluctuating while in the [facility] [place],stabilized with fluid.GENERAL: Alert and oriented, no acute distress, awake and responsive.HEAD: Atraumatic, normocephalic.EYES: EOMI, no scleral icterus, pupils equal, round, and reactive.NECK: Supple, nontender, no cervical lymphadenopathy, trachea midline, nocervical tenderness on exam, no tenderness to axial loading, no tendernesswith rotation, no tendernesswith flexion and extension. Patient did notpresent with C-collar.RESPIRATORY: Normal effort of breathing, initially on room air, put onnasal cannula wall in the ED, expiratory wheezes noted bilaterally.CARDIOVASCULAR: Regular rate and rhythm, normal heart sounds, 2+ pulsesthroughout upper and lowerextremities bilaterally.ABDOMEN: Soft, nondistended, tender to palpation left upper quadrant,distention noted, tympanic on abdominal exam.EXTREMITIES: Atraumatic, no edema appreciated.SKIN: Warm, dry, no rash or lesions appreciated.NEUROLOGICAL: Grossly intact, GCS of 15. Strength 5/5 upper and lowerextremities bilaterally, sensation intact bilaterally.ASSESSMENT: The patient is a 72-year-old female who presented as a level 1trauma to the emergency department status post fall 2 weeks ago, with C Tevidence of splenic injury with active intraperitoneal bleeding. [...] Dict: 08/11/2017/12:27 A/SUKHJINDER Delgadoate Trans: 08/11/2017 08:41 A/Izabela_JN:[id number] Medical Specialty Hospital - [facility], IncLACTATE BLOODon 35-77-2826Rehqanp1.1 mmol/LNormal.5-2.2The Peoples HospitalComment on above:Order Comment: No: Do not add to previous drawPerformed By: #### 13953, ####[facility] [facility] [place] [address], USALactate1.3 mmol/LNormal.5-2.2The Peoples HospitalComment on above:Performed By: #### 00516, ####[facility] [facility] [place] [address], USALIPASE BLOODon 93-30-1858Pllatp36 Units/RAttdzv20-33Ogd [facility] Comment on above:Performed By: #### 03324, 54411 ####[facility] [facility] [place] [address], USALIVER BATTERYon 08-11-2017 Alanine aminotransferase (ALT)18 U/LNormal7-52The Peoples HospitalComment on above:Order Comment: No: Do not add to previous drawPerformed By: #### 44761, ####[facility] [place] [address], USAAlbumin2.8 g/dLLow3.5-5.7The [facility] HospitalComment on above:Order Comment: No: Do not add to previous draw Performed By: #### 76923, ####[facility] [place] [address], USAALKALINE HROAVL59 IU/LGfppuj41-103Drm [facility] HospitalComment on above:Order Comment: No: Do not add to previous drawPerformed By: #### 74890, ####[facility] [place] [address], USAAspartate aminotransferase (AST)30 U/ZDhoett40-97Rjt [facility] HospitalComment on above: Order Comment: No: Do not add to previous drawPerformed By: #### 44263, ####[facility] [place] [address], [place] Bilirubin (direct)0.2 mg/dLNormal0.0-0.2[facility] Comment on above:Order Comment: No: Do not add to previous drawPerformed By: #### [id number], ####[facility] [place] [address], USABilirubin (total)0.9 mg/dLNormal0.3-1.0The Peoples HospitalComment on above:Order Comment: No: Do not add to previous drawPerformed By: #### 06449, ####[facility] [place] [address], USAProtein4.0 g/dLLow6.0-8.3The Peoples HospitalComment on above:Order Comment: No: Do not add to previous drawPerformed By: #### 60562, ####[facility] [place] [address], USAMAGNESIUM BLOODon 43-31-1818Mpmpaaqgs5.4 mg/dLLow1.9-2.7[facility] Comment on above:Order Comment: No: Do not add to previous drawPerformed By: #### 33828, ####[facility] [place] [address], USAOperative Reporton [id number] ReportMR#: [id number] [facility] Judith Land Room #: SIC [id number] Discharge Date: Birthdate: 1945 OPERATIVE REPORTDATE OF SURGERY: 08/11/2017SURGEON: Alexander Caballero M.D.ASSISTANTS: Aldo Villasenor M.D. PhD; ALEXANDER GutierrezREOPERATIVE DIAGNOSES: Traumatic splenic rupture.POSTOPERATIVE DIAGNOSIS: Traumatic splenic rupture.PROCEDURE: Splenectomy for trauma.INDICATION: This is a 72-year-old white [facility], [facility] a [facility] about 2 weeks ago.She presents now to the outside facility due to left lower quadrant painand was found on the CT to have a bleeding of splenic hemorrhage andtherefore was transferred here with a labile hemodynamics. The patient wasresuscitated with 4 units of blood and IVfluid, but continued to havelabile blood pressure, therefore decision was made to take emergently tothe operating room for exploration.DESCRIPTION OF PROCEDURE: The patient was taken to the operatingroom andlaid supine on operating table. Lines were placed. A general endotrachealanesthesia was induced by anesthesiologist without complication. Theabdomen was prepped and draped in the usual sterile fashion. Time-out wascompleted verifying correct patient, procedure site, positioning, and allthe special equipments prior to starting the procedure. Preoperativeantibiotics were given. An orogastric tube was placed.A vertical midline incision was made from xiphoid to just below theumbilicus. Thiswas deepened through the subcutaneous tissues andhemostasis was achieved with electrocautery. The linea alba was identifiedand incised and peritoneal cavity entered. This was done carefully withonly a small incision that showed a peritoneum as we were expecting massiveblood in the peritoneum. A large amount of blood and clot was suctioned andremoved from the abdomen. The abdomen was explored. Thespleen was found yannick ruptured. Upon further exploration, a large clot was removed from thesplenic l ocation and this blood clot was found to have the splenic capsuleinvolved. The rest of the spleen was therefore left there without capsulein the peritoneum. The spleen was grasped with lap pads to mobilize itmedially and achieve a temporary hemostasis. It was rapidly mobilized intothe midline by incising the lateral peritoneal attachments withelectrocautery. The short gastric vessels were alreadydissected off due tothe large hematoma and need [...] was no indication for splenorrhaphy or partial splenectom y.After mobilizing the spleen medially, the splenic hilum [...] whole procedure.Reviewed By:Aldo Villasenor MD 08/15/2017 07:37 PEl ectronically Signed by:Alexander Caballero M.D. 08/20/2017 09:18 A Alexander Caballero M.D. I was present for the entire procedure. Date Dict: 08/11/2017/06:29 A/Aldo Villasenor, MDDate Trans: 08/11/2017 03:54 P/mmoDN_JN:[id number] Valley HospitalPHOSPHORUS BLOODon 22-97-4366Hspkfnlxj0.1 mg/dLNormal2.5-5.0The Peoples HospitalComment on above:Order Comment: No: Do not add to previous drawPerformed By: #### 57098, 56400 ####[facility] [place] [address], [facility] MEDICAL CENTERPLATELET APHERESIS 1 UNIT on [id number] CODE [id number] Health Hamilton Comment on above:Order Comment: Plt count at the time of order: 126 ;Indication: Platelet-inhibitingdrug therapy with invasive procedure/bleedingPerformed By: #### 12266, 90253 ####[facility] [place] [address], [facility]ICAL CENTERPRODUCT STATUS 1PTNoKettering Health HamiltonComment on above:Order Comment: Plt count at the time of order: 126 ;Indication: Platelet-inhibitingdrug therapy with invasive procedure/bleedingResult Comment: Result changed by IF on 08/11/2017 00:20. The previous value was XM.Result changed by IF on 08/12/2017 02:00. The previous value was IS.Performed By: #### 44923, 49540 ####[address] [place] [address], USAUNIT ABO 1L[facility] Memorial HospitalComment on above:Order Comment: Plt count at the time of order: 126 ;Indication: Platelet-inhibitingdrug therapy with invasive procedure/bleedingPerformed By: #### 43374, 87706 ####[address] [place] [address], USAUNIT ID [id number] NormalNewark HospitalComment on above:Order Comment: Plt count at the time of order: 126 ;Indication: Platelet-inhibitingdrug therapy with invasive procedure/bleedingPerformed By: #### 56038, ####[address] [place] [address], USAUNIT RH 1 The Jewish HospitalComment on above:Order Comment: Plt count at the time of order: 126 ;Indication: Platelet- inhibitingdrug therapy with invasive procedure/bleedingPerformed By: #### 12206, ####[address] [place] [address], USAPOC GLUCOSE LABon 98-53-9547Wjkebuc mass bcdp616 mg/sLZwbqfm81-938DqiNewark HospitalComment on above:Performed By: #### 51763, ####[address] [place] [address], USAPORTABLE ABDOMENon [id number] ABDOMENUnSelect Medical Specialty Hospital - CantonDepartment of Rewsktkze[address] [place] [address] Patien t Name: JUDITH LAND : 1945Sex: FAge: Race: WhiteMRN: [id number]. Location: EMERPatient Status: IVisit #: [id number] Date: 08/11/2017 12:35:00 AMCompleted Date: 08/11/2017 01:07 AMRequesting Provider: ALEXANDER CABALLERO Attending Provider: ALEXANDER CABALLERO Report Copy To: Signs & Sy mptoms: Intra-op portable abdomenHistory: R/O foreign bodyComments: R/O foreign bodyExam: PORTABLE ABDOMENAccession #: [id number] =PORTABLE ABDOMEN 08/11/2017 1:07 AM EST SIGNS AND SYMPTOMS: Intra-op portable abdomen TECHNOLOGIST COMMENTS: OR portable abdomen; checking count QUESTION FOR THE RADIOLOGIST: R/O foreign body PROTOCOL:AP(PA) view was obtained. COMPARISON: CT abdomen and pelvis August 10, 2017. FINDINGS: Nonobstructivebowel gas pattern. There remains oral contrast from prior CT overlying the right lower quadrant andrectum. NG tube overlying the left upper quadrant as well as a left upper quadrant abdominal drain.Degenerative changes of the lumbar spine. No other radiopaque foreign object overlying the field other than hemostats at the corners of the image and right femoral line. Contrast in dilated right pelv icalyceal system IMPRESSION: * No unexpected radiopaque foreign object demonstrated other than NG tube and left upper quadrant drain. Approved by:Kd Mcneill on 08/11/2017 1:12 AM EST. I, Yeimi Nascimento, have reviewed the images and report and concur with these findings. Electronically signed by:Yeimi Nascimento. Transcribed by: [email or web address], User Resident: KD TOTHANElectronically Signed by: YEIMI NASCIMENTO @ 08/11/2017 12:16 PMI personally read this/these film(s) with this [facility] Hospital at SouthwoodsComment on above:Order Comment: R/O foreign bodyPORTABLE CHEST 1 VIEWon [id number] CHEST 1 VIEWUnSelect Medical Specialty Hospital - CantonDepartment of Byztxweys[address] [place] [address] Patien t Name: JUDITH LAND : 1945Sex: FAge: Race: WhiteMRN: [id number]. Location: [id number] Status: IVisit #: [id number] Date: 08/11/2017 1:45:00 AMCompleted Date: 08/11/2017 02:13 AMRequesting Provider: CARMENZA WINTER Attending Provider: ALEXANDER CABALLERO Report Copy To: Signs & Symptoms: Post OPHistory: Patient history not availableComments: Check E.T. Position, also to chest OGT placementExam: PORTABLE CHEST 1 VIEWAccession #: [id number] PORTABLE CHEST 1 VIEW 08/11/2017 2:13 AM EST SIGNS AND SYMPTOMS: Post OP TECHNOLOGIST COMMENTS: Check E.T. Position, also to chest OGT placement per ordering physician QUESTION FOR THE RADIOLOGIST: Check E.T. Position, also to chest OGT placement PROTOCOL: AP(PA) viewwas obtained. COMPARISON: Chest radiograph July 21, 2017. [...] findings. Electronically signed by:Yeimi Nascimento. Transcribed by: [email or web address], User Resident: KD TOTHANElectronically Signed by: YEIMI NASCIMENTO @ 08/11/2017 12:17 PMI personally read this/these film(s) with this residentMiami Valley HospitalComment on above:Order Comment: Check E.T. Position, also to chest OGT placementPROTHROMBIN TIMEon [id number] Coag RelTime (PPP)1.44 {INR}High0.91-1.16Newark HospitalComment on above:Order Comment: No: Do not add to previous drawResult Comment: ACCCP RECOMMENDED INR FOR WARFARIN THERAPY CONDITION INRPROPHYLAXIS OF VENOUS THROMBOSIS 2-3(HIGH-RISK SURGERY)TREATMENT OF VENOUS THROMBOSIS 2-3TREATMENT OF PULMONARY EMBOLISM 2-3PREVENTION OF SYSTEMIC EMBOLISM: 2-3 ACUTE MYOCARDIAL INFARCTION TISSUE HEART VALVES VALVULAR HEART DISEASE ATRIAL FIBRILLATION RECURRENT SYSTEMIC EMBOLISMMECHANICAL HEART VALVE 2.5-3.5 FROM: ORAL ANTICOAGULANTS. MECHANISM OF ACTION, CLINICALEFFECTIVENESS, AND OPTIMAL THERAPEU TIC RANGE. [id number];108:231S-246S.Performed By: #### 69243, ####[facility] [place] [address], [facility] Prothrombin time (PT) Coag time (PPP)17.7 sHigh12.3-14.8The Peoples HospitalComment on above:Order Comment: No: Do not add to previous draw Result Comment: ALL RESULTS MUST BE INTERPRETED WITH RESPECT TO BLOOD DRAWING ARTIFACTOR DILUTION ERROR OF ANTICOAGULANT AT THE TIME OF SAMPLING.Performed By: #### 47992, ####[facility] [place] [address], [facility] MEDICAL CENTERINR Coag RelTime (PPP)1.22 {INR}High0.91-1.16The Peoples HospitalComment on above:Result Comment: ACCCP RECOMMENDED INR FOR WARFARIN THERAPY CONDITION INRPROPHYLAXIS OF VENOUS THROMBOSIS 2-3(HIGH-RISK SURGERY)TREATMENT OF VENOUS THROMBOSIS 2-3TREATMENT OF PULMONARY EMBOLISM 2-3PREVENTION OF SYSTEMIC EMBOLISM: 2-3 ACUTE MYOCARDIAL INFARCTION TISSUE HEART VALVES VALVULAR HEART DISEASE ATRIAL FIBRILLATION RECURRENT SYSTEMIC EMBOLISMMECHANICAL HEART VALVE 2.5-3.5 FROM: ORAL ANTICOAGULANTS. MECHANISM OF ACTION, CLINICALEFFECTIVENESS, AND OPTIMAL THERAPEU TIC RANGE. [id number];108:231S-246S.Performed By: #### 10695, 19053 ####[facility] [place] [address], [facility] Prothrombin time (PT) Coag time (PPP)15.5 sHigh12.3-14.8The Peoples HospitalComment on above:Result Comment: ALL RESULTS MUST BE INTERPRETED WITH RESPECT TO BLOOD DRAWING ARTIFACTOR DILUTION ERROR OF ANTICOAGULANT AT THE TIME OF SAMPLING.Performed By: #### 60792, 62704 ####[facility] [place] [address], USARBC'S 4 UNITSon 08-11-2017 CROSSMATCH INTERP 1COur Lady of Mercy HospitalComment on above:Performed By: #### 33330 ####[facility] [place] [address], USACROSSMATCH INTERP 2COur Lady of Mercy HospitalComment on above:Performed By: #### 46745 ####[facility] [place] [address], USACROSSMATCH INTERP 3COur Lady of Mercy HospitalComment on above: Performed By: #### 55963 ####[facility] [place] [address], USACROSSMATCH INTERP 4COur Lady of Mercy HospitalComment on above:Performed By: #### 86281 ####[facility] [place] [address], USAPRODUCT CODE [id number] The Peoples HospitalComment on above:Performed By: #### 14038 ####[facility] [place] [address], [place] PRODUCT CODE [id number] Health HamiltonComment on above:Performed By: #### 94359 ####[facility] [place] [address], USAPRODUCT CODE [id number] Health HamiltonComment on above:Performed By: #### 58039 ####[address] [place] [address], USAPRODUCT CODE 4 [id number] Valley HospitalComment on above:Performed By: #### 00407 ####[facility] [place] [address], USAPRODUCT STATUS 1RMcKitrick Hospital Comment on above:Result Comment: Result changed by IF on 08/11/2017 00:26. The previous value was XM.Result changed by IF on 08/11/2017 01:42. The previous value was IS.Result changed by IF on 08/14/2017 07:03. The previous value was XM.Performed By: #### 57780 ####[place] [address] [facility] [place] [address], USAPRODUCT STATUS 2PTMiami Valley HospitalComment on above:Result Comment: Result changed by IF on 08/11/2017 00:26. The previous value was XM.Result changed by IF on 08/12/2017 02:00. The previous value was IS.Performed By: #### 10348 ####[place] [address] [facility] [place] [address], USAPRODUCT STATUS 3RE Miami Valley HospitalComment on above:Result Comment: Result changed by IF on 08/12/2017 15:16. The previous value was XX.Performed By: #### 57723 ####[place] [address] [facility] [place] [address], USAPRODUCT STATUS 4RMcKitrick Hospital Comment on above:Result Comment: Result changed by IF on 08/11/2017 00:26. The previous value was XM.Result changed by IF on 08/11/2017 01:42. The previous value was IS.Result changed by IF on 08/14/2017 07:03. The previous value was XM.Performed By: #### 01837 ####[place] [address] [place] [address], USAUNIT ABO 1[facility] HospitalComment on above:Performed By: #### 14419 ####[facility] [place] [address], USAUNIT ABO 2[facility] Memorial HospitalComment on above:Performed By: #### 84065 ####[facility] [place] [address], [facility] UNIT ABO 3[facility] Memorial HospitalComment on above: Performed By: #### 02786 ####[facility] [place] [address], USAUNIT ABO 4[facility] HospitalComment on above:Performed By: #### 21547 ####[facility] [place] [address], USAUNIT ID [id number]-DAdrrznWlqMcKitrick HospitalComment on above:Performed By: #### 78449 ####[facility] [place] [address], [facility] UNIT ID [id number]-SGzagebNdcMartin Memorial HospitalComment on above:Performed By: #### 63669 ####[facility] [place] [address], USAUNIT ID [id number]-CVqhtweLhhNewark HospitalComment on above:Performed By: #### 01718 ####[facility] [place] [address], USAUNIT ID 4 [id number]-VSotljkSpqMount [address]. Mary HospitalComment on above: Performed By: #### 68148 ####[facility] [place] [address], [facility] CENTERUNIT RH 1NegativeMiami Valley HospitalComment on above:Performed By: #### 85411 ####[facility] [place] [address], USAUNIT RH 2NegativeMiami Valley HospitalComment on above:Performed By: #### 81028 ####[facility] [place] [address], [place] UNIT RH 3NegativeMiami Valley HospitalComment on above: Performed By: #### 16231 ####[facility] [place] [address], USAUNIT RH 4NegativeMiami Valley HospitalComment on above:Performed By: #### 53084 ####[facility] [place] [address], USASERUM TESTon 36-70-1615PIXQHODIS TESTNegOhioHealth Berger Hospital Comment on above:Performed By: #### 75060 ####[facility] [place] [address], USATYPE AND CROSSMATCHon 08-11-2017 ABO INTERPRETATIONONoKettering Health HamiltonComment on above:Performed By: #### 42619 ####[facility] [place] [address], USAANTIBODY SCREENNegativeMiami Valley HospitalComment on above:Performed By: #### 35302 ####[facility] [place] [address], USARH INTERPRETATIONNegativeMiami Valley HospitalComment on above:Performed By: #### 22427 ####[facility] [place] [address], [place] Vital Signs Date TimeVital SignValuePerforming DniytxjxjShovcyqy97-70-5680 07:37-0400Body duktidmsddf31.7 [degF]Damaso Tupa DO Work Phone: [facility]09-25-2025 07:37-0400 Diastolic blood mm[Hg]Damaso Tupa DO Work Phone: [phone] [place], [place] 6573309-25-2025 07:37-0400 Heart rate58 /minPatrick Tupa DO Work Phone: [phone] [place], [place] 6573309-25-2025 07:37-0400 Respiratory rate16 /minPatrick Tupa DO Work Phone: [phone]09-25-2025 07:37-0400 SaO2% (BldA) [Mass fraction]94 %Damaso Tupa DO Work Phone: [phone]09-25-2025 07:37-0400 Systolic blood tqwopbyx144 mm[Hg]Damaso Hernandezpa DO Work Phone: [phone])[address]09-25-2025 05:33-0400 Body iwojhz37.6 kgPatrick Tupa DO Work Phone: [phone] [place], [place] 4564209-22-2025 15:37-0400 Body ykhvio305.64 cmPatrick Tupa DO Work Phone: [phone] [place], [place] 6573309-22-2025 05:59-0400 Body ckdbdi463.64 cmPatrick Tupa DO Work Phone: [phone] [place], [place] 6573309-22-2025 05:59-0400 Body amyjcziwgtm98.7 [degF]Damaso Hernandezpa DO Work Phone: [phone] [place], [place] 6573309-22-2025 05:59-0400 Body .8 kgPatrick Tupa DO Work Phone: [phone] [place], [place] 6573309-22-2025 05:59-0400 Diastolic blood wdcgaqkw18 mm[Hg]Damaso Tupa DO Work Phone: [phone] [place], [place] 6573309-22-2025 05:59-0400 Heart rate79 /minPatrick Tupa DO Work Phone: [phone] [place], [place] 6573309-22-2025 05:59-0400 Respiratory rate16 /minPatrick Tupa DO Work Phone: [phone] [place], [place] 6573309-22-2025 05:59-0400 SaO2% (BldA) [Mass fraction]94 %Damaso Tupa DO Work Phone: [phone] [place], [place] 6573309-22-2025 05:59-0400 Systolic blood mm[Hg]Damaso Tupa DO Work Phone: [phone])[address]09-19-2025 12:53-0400 Body wkeeiv766.64 cmPatrick Tupa DO Work Phone: [phone] [place], [place] 4564209-19-2025 12:53-0400 Body mass index (BMI) [Ratio]15.6 kg/q6Nmkheyj Tupa DO Work Phone: [phone])[address]09-19-2025 12:53-0400 Body yvzewnoeyhf78.8 [degF]Damaso Hernandezpa DO Work Phone: [phone] [place], [place] 6573309-19-2025 12:53-0400 Body uvchye08.05 kgPatrick Tupa DO Work Phone: [phone])[address]09-19-2025 12:53-0400 Diastolic blood rjazxycz24 mm[Hg]Damaso Tupa DO Work Phone: [phone] [place], [place] 6573309-19-2025 12:53-0400 Heart rate95 /minPatrick Tupa DO Work Phone: [phone] [place], [place] 6573309-19-2025 12:53-0400 Respiratory rate18 /minPatrick Tupa DO Work Phone: [phone] [place], [place] 6573309-19-2025 12:53-0400 SaO2% (BldA) [Mass fraction]92 %Damaso Hernandezpa DO Work Phone: [facility]09-19-2025 12:53-0400 Systolic blood varqmrib125 mm[Hg]Damaso Charlton DO Work Phone: [facility]09-11-2025 11:33-0400 Body mkhifj797.1 cmDaniela Jaramillo PASTRY SOUS CHEF Work Phone: [facility] SpringsRzfacfpprv09-56-7970 11:33-0400Body mass index (BMI) [Ratio]16.31 kg/m2Daniela Jaramillo PASTRY SOUS CHEF Work Phone: [facility] SpringsFcmrlgamwm77-83-5187 11:33-0400Body .45 kgDaniela Jaramillo PASTRY SOUS CHEF Work Phone: [facility] SpringsXyvjkprxph38-34-4693 11:33-0400Diastolic blood ysmwpabg07 mm[Hg]Daniela Clint PASTRY SOUS CHEF Work Phone: [facility] SpringsDfduxqmwap47-59-2400 11:33-0400Heart rate72 /min Daniela Jaramillo PASTRY SOUS CHEF Work Phone: [phone] [place], [place] [address]Tbuggjmesa78-63-0947 11:33-0400Respiratory rate16 /minKiangelica Jaramillo PASTRY SOUS CHEF Work Phone: [facility] SpringsXuhyrvwgrz97-39-9754 11:33-6848AzM9% (BldA) [Mass fraction]94 %Daniela Jaramillo PASTRY SOUS CHEF Work Phone: [facility] SpringsRhytrysjnz90-95-1198 11:33-0400Systolic blood nqrwmlew183 mm[Hg]Daniela Jaramillo PASTRY SOUS CHEF Work Phone: [facility] SpringsRjtrqkbptv25-00-7537 09:53-0400Body utptut15.14 kgTrish Christensen MD Work Phone: [facility]08-21-2025 09:53-0400 Diastolic blood spuwezpk53 mm[Hg]Trish Christensen MD Work Phone: [facility]08-21-2025 09:53-0400 Heart rate87 /minTrish Christensen MD Work Phone: [facility]08-21-2025 09:53-0400 SaO2% (BldA) [Mass fraction]92 %Trish Christensen MD Work Phone: [facility]08-21-2025 09:53-0400 Systolic blood rnanheiz480 mm[Hg]Trish Christensen MD Work Phone: [facility]07-21-2025 08:37-0400 Body mass index (BMI) [Ratio]16.51 kg/m2Lyndsayma Wilian PA-C Work Phone: [phone]07-21-2025 08:37-0400Body wknbty28.4 kgLyndsayma Wilian PA-C Work Phone: [phone]07-21-2025 08:37-0400Diastolic blood kwhzefoj01 mm[Hg]Cherie Wilian PA-C Work Phone: [phone]07-21-2025 08:37-0400Heart rate83 /min Cherie Wilian PA-C Work Phone: [phone]07-21-2025 08:37-9395XjP4% (BldA) [Mass fraction]96 %Cherie Wilian PA-C Work Phone: [phone]07-21-2025 08:37-0400Systolic blood qjmkhhhu481 mm[Hg]Cherie Wilian PA-C Work Phone: [phone]07-17-2025 10:04-0400Body avwjak679.1 cmJudith Hemmer PA Work Phone: [facility] SpringsIxwykkeoxk05-02-5223 10:04-0400Body mass index (BMI) [Ratio]16.14 kg/m5Tlwok Hemmer PA Work Phone: NOSt. [facility] Medical CenterItuksfwcqk26-26-8423 10:04-0400Body ryiijq20 kg Judith Hemjúnior PA Work Phone: NOSt. [facility] Medical CenterMljntzuphm03-91-5397 10:04-0400Diastolic blood nzccwcry55 mm[Hg]Judith Murphy PA Work Phone: [facility] SpringsCfrciuvrow66-63-7207 10:04-0400Heart rate84 /min Judith Murphy PA Work Phone: [facility] SpringsLdqazgwkzz72-76-2813 10:04-2857EhK2% (BldA) [Mass fraction]95 %Judith Murphy PA Work Phone: [phone])[facility]-2940[facility] SpringsYeuajrvggt89-46-7222 10:04-0400Systolic blood kapfokrs725 mm[Hg]Judith Murphy PA Work Phone: 1(322)[facility] [place], [place] [address]Bzmicjqset49-46-0257 14:50-0400Body temperature 97.4 [degF]Kavon Sams MD Work Phone: [phone] [place], [place] 7060507-10-2025 14:50-0400 Diastolic blood eodjrdup82 mm[Hg]Kavon Sams MD Work Phone: [phone] [place], [place] 7060507-10-2025 14:50-0400 Heart rate70 /Brianna Sams MD Work Phone: [phone] [place], [place] 7060507-10-2025 14:50-0400 Respiratory rate16 /Brianna Sams MD Work Phone: [phone] [place], [place] 7060507-10-2025 14:50-0400 SaO2% (BldA) [Mass fraction]97 %Kavon Sams MD Work Phone: [phone])[address] [place], [place] 7060507-10-2025 14:50-0400 Systolic blood rkabfjyg800 mm[Hg]Kavon Sams MD Work Phone: 1(873)[facility]-[address] [place], [place] 4888807-10-2025 03:55-0400 Body ogeawx67.9 kgKavon Sams MD Work Phone: [phone])[address] [place], [place] 7060507-09-2025 10:45-0400 Body yqnaip156.64 cmKavon Sams MD Work Phone: [phone]07-07-2025 14:42-0400 Diastolic blood arudatua86 mm[Hg]Trish Christensen MD Work Phone: [facility]07-07-2025 14:42-0400 Heart rate62 /Esa Christensen MD Work Phone: [phone])[address]07-07-2025 14:42-0400 Respiratory rate18 /Esa Christensen MD Work Phone: [phone] [place], [place] 1485607-07-2025 14:42-0400 SaO2% (BldA) [Mass fraction]95 %Trish Christensen MD Work Phone: [phone] [place], [place] 1485607-07-2025 14:42-0400 Systolic blood etztsscs551 mm[Hg]Trish Christensen MD Work Phone: [phone])[address] [place], [place] 5054307-07-2025 10:49-0400 Body opjgmg818.64 cmRtoño Christensen MD Work Phone: [phone] [place], [place] 5054307-07-2025 10:49-0400 Body afpxbxwdxlm02.4 [degF]Trish Christensen MD Work Phone: 1(154)[address] [place], [place] 5054307-07-2025 10:49-0400 Body bslyse90.45 kgRanatalia Christensen MD Work Phone: 1(776)[address] [place], [place] 5054307-06-2025 12:24-0400 Diastolic blood uxfwsrdi23 mm[Hg]Trish Christensen MD Work Phone: [phone] [place], [place] 1485607-06-2025 12:24-0400 Heart rate82 /Esa Christensen MD Work Phone: 1(253)[address] [place], [place] 5054307-06-2025 12:24-0400 Respiratory rate18 /Esa Christensen MD Work Phone: [phone] [place], [place] 1485607-06-2025 12:24-0400 SaO2% (BldA) [Mass fraction]92 %Trish Christensen MD Work Phone: 1(967)[address] [place], [place] 1485607-06-2025 12:24-0400 Systolic blood bwsebrtz673 mm[Hg]Trish Christensen MD Work Phone: [facility]07-06-2025 08:30-0400 Body yliazpkdeql53.3 [degF]Trish Christensen MD Work Phone: [address] [place], [place] 1142707-06-2025 08:24-0400 Body vagtoy795.1 cmRtoño Christensen MD Work Phone: 1(072)835-[address] [place], [place] 0608407-06-2025 08:24-0400 Body vsamjp57 kgRanatalia Christensen MD Work Phone: [phone]06-18-2025 14:48-0400 Body .1 cmHowardangelica Clint PASTRY SOUS CHEF Work Phone: [facility] SpringsHktyqiwplq11-52-0496 14:48-0400Body mass index (BMI) [Ratio]16.77 kg/m2Daniela Jaramillo PASTRY SOUS CHEF Work Phone: [facility] SpringsJekftmkqxd65-62-4490 14:48-0400Body rlhvej27.72 kgHowardangelica Clint PASTRY SOUS CHEF Work Phone: [facility] SpringsPjiycksyxi28-66-5369 14:48-0400Diastolic blood hqzworns20 mm[Hg]Daniela Jaramillo PASTRY SOUS CHEF Work Phone: [facility] SpringsLbeshzjxsr55-81-9671 14:48-0400Heart rate80 /min Daniela Jaramillo PASTRY SOUS CHEF Work Phone: [facility] SpringsLjjxrswvyg16-38-8154 14:48-0400Respiratory rate16 /minDaniela Jaramillo PASTRY SOUS CHEF Work Phone: [facility] SpringsYikteqvjsl60-32-2324 14:48-1260EiE7% (BldA) [Mass fraction]95 %Daniela Jaramillo PASTRY SOUS CHEF Work Phone: NOSt. [facility] CenterUsblhwuzng46-90-2199 14:48-0400Systolic blood mm[Hg]Daniela Jaramillo PASTRY SOUS CHEF Work Phone: NOSt. [facility] CenterQrkenkpxzi67-90-1849 08:25-0400Body temperature 97.9 [degF]Trish Christensen MD Work Phone: 1(419)[address] [place], [place] 5054305-25-2025 08:25-0400 Diastolic blood etlsebqt13 mm[Hg]Trish Christensen MD Work Phone: 1(405)[address] [place], [place] 5054305-25-2025 08:25-0400 Heart rate66 /Esa Christensen MD Work Phone: 1(388)[address] [place], [place] 5054305-25-2025 08:25-0400 Inhaled oxygen flow rate3 L/Esa Christensen MD Work Phone: 1(944)[address] [place], [place] 5054305-25-2025 08:25-0400 Respiratory rate16 /Esa Christensen MD Work Phone: 1(983)[address] [place], [place] 5054305-25-2025 08:25-0400 SaO2% (BldA) [Mass fraction]95 %Trish Christensen MD Work Phone: 1(648)[address] [place], [place] 5054305-25-2025 08:25-0400 Systolic blood qaajsupz052 mm[Hg]Trish Christensen MD Work Phone: 1(590)[address] [place], [place] 5054305-25-2025 06:25-0400 Body tgleyj53.7 kgTrish Christensen MD Work Phone: 1(405)[address] [place], [place] 5054305-22-2025 16:00-0400 Inhaled oxygen ktlpiqszhajdo360 %Trish Christensen MD Work Phone: 1(619)[address] [place], [place] 5054305-22-2025 15:19-0400 Body .02 cmRtoño Christensen MD Work Phone: 1(009)[address] [place], [place] 5054304-23-2025 09:49-0400 Body .1 cmDavid Pocos DO Work Phone: noSt. [facility] CenterJenipwqwzi49-03-0125 09:49-0400Body mass index (BMI) [Ratio]17.97 kg/o0Lyywm Pocos DO Work Phone: noSt. [facility] CenterJpultzqruc29-40-9808 09:49-0400Body tmlced26.99 kgDavid Pocos DO Work Phone: noSt. [facility] CenterKlwtqzpbkk17-23-2818 15:43-0400Body eiryss844.1 Alma Delia Jackson PASTRY SOUS CHEF Work Phone: NOSt. [facility] CenterBhmtwyyrrk88-62-9629 15:43-0400Diastolic blood iyklfira66 mm[Hg]Shaun Jackson PASTRY SOUS CHEF Work Phone: noSt. [facility] CenterQffezsyuwy74-83-2771 15:43-0400Systolic blood waqtyiec446 mm[Hg]Shaun Jackson PASTRY SOUS CHEF Work Phone: NOSt. [facility] CenterMqjumvgpvt69-80-3257 14:30-0400Body oepnlv070.1 cmDavid Pocos DO Work Phone: [facility] SpringsYnxxuwebbx60-49-0181 14:30-0400Body mass index (BMI) [Ratio]17.97 kg/y5Zomgj Pocos DO Work Phone: [facility] SpringsKhwgpwpmfe04-60-2200 14:30-0400Body khdgag65.99 kgDavid Pocos DO Work Phone: [facility] SpringsRblzpicfrf24-54-6938 06:55-0400Body temperature 98.4 [degF]Damaso Hernandezbecca DO Work Phone: [facility]03-28-2025 06:55-0400 Heart mytk651 /minPatrick Tupa DO Work Phone: [facility]03-28-2025 06:55-0400 Respiratory rate16 /minPatrick Tupa DO Work Phone: [facility]03-28-2025 06:55-0400 SaO2% (BldA) [Mass fraction]95 %Damaso Davidbecca DO Work Phone: [facility]03-27-2025 14:58-0400 Diastolic blood mm[Hg]Damaso Charlton DO Work Phone: [facility]03-27-2025 14:58-0400 Systolic blood mm[Hg]Damaso Tupa DO Work Phone: 1(050)726-[address] [place], [place] 6573303-26-2025 12:27-0400 Body .64 cmPatrick Tupa DO Work Phone: 1(104)076-[address] [place], [place] 6573303-23-2025 05:54-0400 Body qerolh14.8 kgPatrick Tupa DO Work Phone: 1(607)832-[address] [place], [place] 6573303-17-2025 14:14-0400 Diastolic blood xxkohalc09 mm[Hg]Damaso Tupa DO Work Phone: 1(530)[address]03-17-2025 14:14-0400 Systolic blood cskovoxh413 mm[Hg]Damaso Tupa DO Work Phone: 1(493)[address]03-17-2025 07:20-0400 Body kmseljrufwu54.7 [degF]Damaso Tupa DO Work Phone: 1(140)524-[address] [place], [place] 6573303-17-2025 07:20-0400 Heart rate99 /minPatrick Tupa DO Work Phone: 1(434)[address]03-17-2025 07:20-0400 Respiratory rate16 /minPatrick Tupa DO Work Phone: 1(173)[address]03-17-2025 07:20-0400 SaO2% (BldA) [Mass fraction]93 %Damaso Tupa DO Work Phone: 1(777)[address]03-17-2025 04:34-0400 Body .3 kgPatrick Tupa DO Work Phone: 1(012)590-[address] [place], [place] 6573303-14-2025 14:20-0400 Body jtoedj946.64 cmPatrick Tupa DO Work Phone: 1(547)138-[address] [place], [place] 6573303-12-2025 21:23-0400 Diastolic blood coqnoicl20 mm[Hg]Damaso Tupa DO Work Phone: 1(750)272-[address] [place], [place] 6573303-12-2025 21:23-0400 Heart rate70 /minPatrick Tupa DO Work Phone: [facility]03-12-2025 21:23-0400 Respiratory rate18 /minPatrick Tupa DO Work Phone: [facility]03-12-2025 21:23-0400 SaO2% (BldA) [Mass fraction]94 %Damaso Hernandezpa DO Work Phone: [facility]03-12-2025 21:23-0400 Systolic blood ograpnty385 mm[Hg]Damaso Hernandezpa DO Work Phone: 1([phone]03-12-2025 19:33-0400 Body .64 cmPatrick Tupa DO Work Phone: [facility]03-12-2025 19:33-0400 Body jadtauasuag21.5 [degF]Damaso Hernandezpa DO Work Phone: [facility]03-12-2025 19:33-0400 Body kxcynq84.98 kgPatrick Tupa DO Work Phone: [facility]03-04-2025 12:12-0500 Heart rate96 /minDavid Pocos [address] [place], [place] 7208203-04-2025 12:12-7470AyC1% (BldA) [Mass fraction]94 %Supa Pocos [address] [place], [place] 7208203-04-2025 12:09-0500 Respiratory rate20 /minDavid Pocos [address] [place], [place] 7208203-04-2025 12:09-0500Blood Pressure LocationDavid Pocos [address] [place], [place] 7208203-04-2025 12:09-0500 Diastolic blood mm[Hg]Supa Pocos [address] [place], [place] 7208203-04-2025 12:09-0500Mean blood kiycbebk97 mm[Hg]Supa Pocos [address] [place], [place] 7208203-04-2025 12:09-0500 Systolic blood vewtasis093 mm[Hg]Supa Pocos [address] [place], [place] 7208203-04-2025 11:17-0500Heart rate86 /minDavid Pocos [address] [place], [place] 7208203-04-2025 11:17-3190MsG4% (BldA) [Mass fraction]97 %Supa Pocos [address] [place], [place] 7208203-04-2025 11:15-0500 Diastolic blood mm[Hg]Supa Pocos [address]03-04-2025 11:15-0500Mean blood ikthwbmv65 mm[Hg]Supa Pocos [address] [place], [place] 7208203-04-2025 11:15-0500 Systolic blood edevjkba407 mm[Hg]Supa Pocos [address] [place], [place] 7208203-04-2025 10:48-0500Heart rate77 /minDavid Pocos [address] [place], [place] 7208203-04-2025 10:48-4753VgE0% (BldA) [Mass fraction]92 %Supa Pocos [address] [place], [place] 7208203-04-2025 10:48-0500Blood Pressure LocationDavid Pocos [address] [place], [place] 7208203-04-2025 10:48-0500 Diastolic blood gdfvgidq76 mm[Hg]Supa Pocos [address] [place], [place] 7208203-04-2025 10:48-0500Mean blood rcyyasfi47 mm[Hg]Supa Pocos [address] [place], [place] 7208203-04-2025 10:48-0500 Systolic blood uhikzhiz30 mm[Hg]Supa Pocos [address] [place], [place] 7208203-04-2025 10:41-0500 Respiratory rate18 /minDavid Pocos [address] [place], [place] 7770703-04-2025 10:38-0500Mean blood obimebro18 mm[Hg]Supa Pocos [address]03-04-2025 10:38-0500 Respiratory rate19 /minDavid Pocos [address] [place], [place] 7770703-04-2025 10:30-0500Mean blood uhgklvll42 mm[Hg]Supa Pocos [address] [place], [place] 7770703-04-2025 10:30-0500 Respiratory rate12 /minDavid Pocos [address] [place], [place] 7770703-04-2025 10:20-0500Mean blood mkgexbrp35 mm[Hg]Supa Pocos [address]03-04-2025 10:20-0500 Respiratory rate12 /minDavid Pocos [address] [place], [place] 7770703-04-2025 10:08-0500Body .52 [degF]Supa Pocos [address] [place], [place] 7770703-04-2025 10:00-0500 Respiratory rate11 /minDavid Pocos [address] [place], [place] 7208203-04-2025 07:50-0500Blood Pressure LocationDavid Pocos [address] [place], [place] 7208203-04-2025 07:50-0500Heart rate82 /minDavid Pocos [address] [place], [place] 7770703-04-2025 07:48-0500Body usonzwqzyyb31.88 [degF]Supa Pocos [address] [place], [place] 7770702-26-2025 10:07-0500Body .1 cmDavid Pocos DO Work Phone: noSt. [facility] CenterDicmukyxrz47-11-4090 10:07-0500Body mass index (BMI) [Ratio]17.97 kg/h8Wkzdv Pocos DO Work Phone: noSt. [facility] CenterLzxioujpyb70-21-4584 10:07-0500Body aunwxn35.99 kgDavid Pocos DO Work Phone: [facility] SpringsAefymqjmoq18-94-6591 20:00-0500Diastolic blood shpzofgj32 mm[Hg]Christopher Sales [address] [place], [place] 7294102-23-2025 20:00-0500Heart rate86 /minChristopher Sales [address] [place], [place] 7294102-23-2025 20:00-0500Mean blood tskqxzyy301 mm[Hg]Christopher Sales [address] [place], [place] 7294102-23-2025 20:00-7997FoF1% (BldA) [Mass fraction]97 %Christopher Sales [address] [place], [place] 7294102-23-2025 20:00-0500 Systolic blood uqmoeigy515 mm[Hg]Christopher Sales [address] [place], [place] 7294102-23-2025 18:59-0500Body htkvsaqecun41.34 [degF]Christopher Sales [address] [place], [place] 7294102-23-2025 18:59-0500 Diastolic blood gyrrmizh95 mm[Hg]Christopher Sales [address] [place], [place] 7294102-23-2025 18:59-0500Heart rate92 /minChristopher Sales [address] [place], [place] 7294102-23-2025 18:59-0500 Respiratory rate16 /minChristopher Sales [address] [place], [place] 7294102-23-2025 18:59-6137YcU8% (BldA) [Mass fraction]94 %Christopher Sales [facility]02-23-2025 18:59-0500 Systolic blood ebtmkcqw888 mm[Hg]Christopher Sales [facility]02-19-2025 07:57-0500Body .1 cmDavid Pocos DO Work Phone: [facility] SpringsPpivpyjaes94-01-3282 07:57-0500Body mass index (BMI) [Ratio]17.97 kg/a4Hhlhu Pocos DO Work Phone: [facility] SpringsDzxrosxoml03-90-9959 07:57-0500Body thigbs95.99 kgDavid Pocos DO Work Phone: [facility] SpringsVdoptozymu67-12-0960 18:33-0500Diastolic blood wpwwhtqo03 mm[Hg]Sae Morfin [facility]02-15-2025 18:33-0500Heart rate76 /minSae Morfin [facility]02-15-2025 18:33-0500Mean blood xcgfamkq287 mm[Hg]Sae Morfin [facility]02-15-2025 18:33-0500 Respiratory rate14 /minSae Morfin [facility]02-15-2025 18:33-9675HlN4% (BldA) [Mass fraction]94 %Sae Morfin [facility]02-15-2025 18:33-0500 Systolic blood cwkypjga756 mm[Hg]Sae Morfin [address] [place], [place] 7294102-15-2025 18:14-0500 Hourly RoundingSae Rochae [facility]02-15-2025 18:00-0500Mean blood osvgthdh742 mm[Hg]Sae Morfin [facility]02-15-2025 18:00-0500 Respiratory rate13 /minSae Morfin [address] [place], [place] 7294102-15-2025 18:00-7221PqW2% (BldA) [Mass fraction]95 %Sae Morfin [address] [place], [place] 7294102-15-2025 18:00-0500 Systolic blood tcsalxyz673 mm[Hg]Sae Morfin [address]02-15-2025 17:10-0500 Diastolic blood kfvxtrwi00 mm[Hg]Sae Morfin [address] [place], [place] 7294102-15-2025 17:10-0500Heart rate75 /minSae Morfin [address] [place], [place] 7294102-15-2025 17:10-0500 Hourly RoundingJochristy Morfin [address] [place], [place] 7294102-15-2025 17:10-0500Mean blood mbhpngeu619 mm[Hg]Sae Morfin [address] [place], [place] 7294102-15-2025 17:10-0500 Respiratory rate18 /minSae Morfin [address] [place], [place] 7294102-15-2025 17:10-0335QtW5% (BldA) [Mass fraction]93 %Sae Morfin [address] [place], [place] 7294102-15-2025 17:10-0500 Systolic blood mm[Hg]Sae Mrofin [address] [place], [place] 7294102-15-2025 16:02-0500Body ckqarorldow28.7 [degF]Sae Morfin [address] [place], [place] 7294102-15-2025 16:02-0500Heart rate89 /minSae Morfin [facility]02-15-2025 16:02-0500 Respiratory rate18 /minSae Morfin [facility]02-13-2025 21:00-0500 Diastolic blood ltbithzx11 mm[Hg][facility] 07-24-2024 21:00-0500Heart rate81 /minAC[facility]02-13-2025 21:00-0500Mean blood vuvpzbgg300 mm[Hg][facility]02-13-2025 21:00-0500Respiratory rate19 /[facility]-2025 21:00-6532TfR2% (BldA) [Mass fraction]96 %[facility]02-13-2025 21:00-0500Systolic blood mm[Hg][facility]02-13-2025 20:30-0500Diastolic blood fghnjoks34 mm[Hg][facility]02-13-2025 20:30-0500Heart rate85 /minAC[facility]02-13-2025 20:30-0500Mean blood jweedgyn923 mm[Hg][facility]02-13-2025 20:30-0500Respiratory rate15 /[facility]02-13-2025 20:30-7204BiP2% (BldA) [Mass fraction]93 %[facility]02-13-2025 20:30-0500Systolic blood wdcocpry042 mm[Hg][facility]02-13-2025 19:30-0500Diastolic blood soxigfsj48 mm[Hg][facility]02-13-2025 19:30-0500Heart rate78 /minAC[facility]02-13-2025 19:30-0500Mean blood mtyqsggb485 mm[Hg][facility]02-13-2025 19:30-0500Respiratory rate18 /[facility]02-13-2025 19:30-6642MlA9% (BldA) [Mass fraction]95 %[facility]02-13-2025 19:30-0500Systolic blood csyjcgze340 mm[Hg][facility]02-13-2025 19:02-0500Body jatdqkodtea82.52 [degF][facility]02-13-2025 19:02-0500Heart rate76 /minAC[facility]02-13-2025 19:02-0500Respiratory rate18 /minAC[facility]02-13-2025 18:46-0500Body pusuqasxbnb08.52 [degF][facility]02-13-2025 18:46-0500Heart rate78 /minAC[facility]02-13-2025 18:46-0500Respiratory rate18 /min [facility]02-05-2025 14:51-0500Diastolic blood dosbmqyv62 mm[Hg]Cherie HANSONC Work Phone: [facility]02-05-2025 14:51-0500Heart rate97 /min Cherie HUDSON-C Work Phone: [facility]02-05-2025 14:51-6186QsS0% (BldA) [Mass fraction]97 %Cherie HUDSON-C Work Phone: [facility]02-05-2025 14:51-0500Systolic blood tlxzhdea187 mm[Hg]Cherie HUDSON-C Work Phone: [facility]12-11-2024 12:59-0500Body mass index (BMI) [Ratio]17.97 kg/t6YabhyoCathie Gill PASTRY SOUS CHEF Work Phone: [facility] SpringsGdquovzmfp66-12-0653 12:59-0500Body oaowyq18.99 kgCathie Gill PASTRY SOUS CHEF Work Phone: [facility] SpringsVyiqhecxxq70-32-5037 12:59-0500Diastolic blood ezlirvdx56 mm[Hg]Cathie Gill PASTRY SOUS CHEF Work Phone: 1(356)702-[address] [place], [place] [address]Tmnwiqzefo83-40-2386 12:59-0500Heart rate68 /min Cathie Gill PASTRY SOUS CHEF Work Phone: 1(849)365-[address] [place] [address]-11-2024 12:59-0500Systolic blood mm[Hg]Cathie Gill PASTRY SOUS CHEF Work Phone: 1(215)853-[facility] SpringsHtsxwmmuay31-45-5508 08:39-0500Body mass index (BMI) [Ratio]18.64 kg/c1LuscapCathie Gill PASTRY SOUS CHEF Work Phone: 1(025)886-[address] [place], [place] [address]Pusxzkhsil31-99-4385 08:39-0500Body zycxtt69.8 kg Cathie Gill PASTRY SOUS CHEF Work Phone: 1(146)401-[address] [place] [address]-11-2024 08:39-0500Diastolic blood rqiugxzd44 mm[Hg]Cathie Gill PASTRY SOUS CHEF Work Phone: 1(993)435-[facility] ClinicChrist[place] [address]Uklxksehkc66-59-4154 08:39-0500Heart rate76 /min Cathie Gill PASTRY SOUS CHEF Work Phone: 1(541)591-[facility]8[place] [address]Lmjxzeombh01-68-0534 08:39-0500Systolic blood hebvtcxp375 mm[Hg]Cathie Gill PASTRY SOUS CHEF Work Phone: [place] [address]Fwarajfbiy49-02-4095 14:35-1164KyH3% (BldA) [Mass fraction]95 %Cherie HANSONC Work Phone: [facility]09-13-2024 14:33-0400Diastolic blood xvupujuj93 mm[Hg]Cherie HUDSON-C Work Phone: [facility]09-13-2024 14:33-0400Heart rate92 /min Cherie Wilian PA-C Work Phone: [facility]09-13-2024 14:33-0400Systolic blood vfszunvz909 mm[Hg]Cherie Mittalwig PA-C Work Phone: [phone]08-05-2024 13:40-0400Body vpeath307.6 cmEmanuel Mittalwig PA-C Work Phone: [phone]08-05-2024 13:40-0400Body mass index (BMI) [Ratio]19.21 kg/m2Cherie Wilian PA-C Work Phone: [phone]08-05-2024 13:40-0400Body wllwwy17.98 kgCherie Wilian PA-C Work Phone: [phone]08-05-2024 13:40-0400Diastolic blood asosdzzb63 mm[Hg]Cherie Mittalwig PA-C Work Phone: [phone]08-05-2024 13:40-0400Heart rate92 /min Cherie Mittalwig PA-C Work Phone: [phone]08-05-2024 13:40-8625VlH4% (BldA) [Mass fraction]92 %Cherie Wilian PA-C Work Phone: [phone]08-05-2024 13:40-0400Systolic blood joefaatn021 mm[Hg]Cherie Mittalwig PA-C Work Phone: [phone]04-28-2024 09:46-0400Diastolic blood ihbxcphc65 mm[Hg]Mri (I-Stat/1.5t/3t) Work Phone: [facility]04-28-2024 09:46-0400Heart esae334 /minMri (I-Stat/1.5t/3t) Work Phone: [facility]04-28-2024 09:46-0400Respiratory rate 16 /minMri (I-Stat/1.5t/3t) Work Phone: [place] [address]-28-2024 09:46-2453BxJ5% (BldA) [Mass fraction]93 %Mri (I-Stat/1.5t/3t) Work Phone: [facility] SouthComment on above:[id number] 09:46-0400Systolic blood nnjzmlai564 mm[Hg]Mri (I-Stat/1.5t/3t) Work Phone: [facility]04-04-2024 09:23-0400Body qraviq571.6 cmDavid Valente MD Work Phone: [facility]04-04-2024 09:23-0400Body ybwwfe04.79 kgDavid Valente MD Work Phone: [facility]04-04-2024 09:23-0400Diastolic blood uwacgzjf11 mm[Hg]David Valente MD Work Phone: [facility]04-04-2024 09:23-0400Heart rate85 /min David Valente MD Work Phone: [facility]04-04-2024 09:23-0723LzY8% (BldA) [Mass fraction]95 %David Valente MD Work Phone: [facility]04-04-2024 09:23-0400Systolic blood mm[Hg]David Valente MD Work Phone: [facility]02-05-2024 15:42-0500Heart beli353 /Keli Beaver [facility]02-05-2024 15:42-0500 Respiratory rate19 /minDemarco Beaver [facility]02-05-2024 15:42-2608IvL5% (BldA) [Mass fraction]94 %Demarco Beaver [facility]02-05-2024 15:00-0500 Diastolic blood plswchra32 mm[Hg]Demarco Beaver [address] [place], [place] 9582802-05-2024 15:00-0500Mean blood jifmrafo030 mm[Hg]Demarco Beaver [address] [place], [place] 0407202-05-2024 15:00-0500 Respiratory rate33 /Keli Beaver [address] [place], [place] 0407202-05-2024 15:00-0500 Systolic blood dgamyknj741 mm[Hg]Demacro Beaver [address] [place], [place] 0407202-05-2024 14:30-0500 Diastolic blood rdnabuik22 mm[Hg]Demarco Beaver [address] [place], [place] 0407202-05-2024 14:30-0500Heart kzpg464 /Keli Beaver [address] [place], [place] 0407202-05-2024 14:30-0500Mean blood hhgvlgwo928 mm[Hg]Demarco Beaver [address] [place], [place] 0407202-05-2024 14:30-0500 Respiratory rate14 /Keli Beaver [address] [place], [place] 0407202-05-2024 14:30-6313DhN7% (BldA) [Mass fraction]93 %Demarco Beaver [address] [place], [place] 0407202-05-2024 14:30-0500 Systolic blood pleiakqg282 mm[Hg]Demarco Beaver [address] [place], [place] 7294102-05-2024 13:30-0500Body cknisqlzprw23.88 [degF]Demarco Beaver [address] [place], [place] 0407202-05-2024 13:30-0500 Diastolic blood mivvdypl27 mm[Hg]Demarco Beaver [address] [place], [place] 0407202-05-2024 13:30-0500Mean blood ljdqfpax369 mm[Hg]Demarco Beaver [address] [place], [place] [id number] 13:30-0500 Systolic blood euzvutkk057 mm[Hg]Demarco Beaver [facility]02-05-2024 11:37-0500Body jlohyjuttcu56.16 [degF]Demarco Beaver [facility]02-05-2024 11:37-0500Heart vnbx023 /Keli Sd [facility]02-05-2024 11:37-0500 Respiratory rate18 /Keli Beaver [address] [place], [place] [id number] 14:00-0500 [facility] 14:00-0500 [facility]2024 13:00-0500[facility]-2024 13:00-0500[facility] 06-23-2023 12:00-0500[facility] 06-23-2023 12:00-0500[facility]2024 11:22-0500Heart pypn777 /[facility]13-2024 11:22-0912IkL3% (BldA) [Mass fraction]94 %[facility]01-13-2024 11:21-0500Diastolic blood koblbuva29 mm[Hg][facility]01-13-2024 11:21-0500Mean blood fnvllbeu314 mm[Hg][facility]01-13-2024 11:21-0500Systolic blood wzatkdpv569 mm[Hg][facility]01-13-2024 11:20-0500Body crnmjtzibtb28.7 [degF] [facility]01-13-2024 08:20-1510MiR4% (BldA) [Mass fraction]98 %[facility]01-13-2024 07:19-0500Heart rate84 /[facility] 06-23-2023 07:19-0931LrD7% (BldA) [Mass fraction]100 %[facility]01-13-2024 07:18-0500Body kvzydjtkwaa86.52 [degF][facility]01-13-2024 07:18-0500Diastolic blood vpapkscq58 mm[Hg][facility]01-13-2024 07:18-0500Mean blood ibzqumam85 mm[Hg][facility]01-13-2024 07:18-0500Systolic blood ovpuspdt954 mm[Hg][facility]01-13-2024 06:17-0500Blood Pressure [facility]-13-2024 06:17-0500Body dhywfjpfnuq21.52 [degF][facility]01-13-2024 06:17-0500Diastolic blood levnabuo79 mm[Hg][facility] [facility] 06:17-0500Heart [facility]99 /[facility]2023 06:17-0500Respiratory rate17 /[facility]01[facility]2024 06:17-0500Systolic blood vxnwshti151 mm[Hg][facility]01-13-2024 05:01-0500Heart uolf761 /min [facility]01-13-2024 05:01-0500Mean blood mm[Hg][facility]01-13-2024 05:01-0500Respiratory rate19 /[facility] 06-23-2023 04:30-0500Mean blood brxhpakh15 mm[Hg][facility]01-13-2024 04:30-0500Respiratory rate16 /[facility]01-13-2024 03:00-0500Mean blood iyoxyuol552 mm[Hg][facility]01-13-2024 03:00-0500Respiratory rate20 /min [facility]01-13-2024 02:43-0500Respiratory rate18 /min[facility]01-13-2024 02:30-0500 Respiratory rate18 /min[facility]01-13-2024 01:40-3619zhlm35 mg/dLMer[facility] Health [facility]01-13-2024 01:40-0500[facility]-2024 01:38-0500 gluc96 mg/dLMer[facility] Health [facility]01-13-2024 01:38-0500 [facility]rS[facility]01-13-2024 01:37-0500Heart rate 117 /min[facility]12-05-2023 13:50-0500Body ttjzte778.64 cmMD Kavon Sams Work Phone: [facility]12-05-2023 13:50-0500 Body .15 kgMD Kavon Hoy Work Phone: [facility] Encounters Encounter DateEncounter TypeCare ProviderFacilityStart: 03-23-2025 End: 31-81-4898tnlqnqdkvsZFTAFisher-Titus Medical Centertart: 03-02-2025 End: 86-88-7547Iyqlmohlgg and management of inpatientKristjunior Dumont DO-[facility] Work Phone: Start: 59-79-3217Nhj-patient / Non-visitMicnorma Watt MD-[facility] Work Phone: Start: 02-27-2025 End: 98-18-6778Epkylsvc ReferredJacquelyn Monae APRN-Lab [facility] Work Phone: Start: 02-27-2025 End: 08-19-8278riaowoyemuTzrnlie [facility] DO Work Phone: [facility] Work Phone: Start: 02-27-2025 End: 66-90-2139Ectwwvh encounter procedureJacquelyn Monae APRN-[facility] Work Phone: Start: 02-19-2025 End: 35-62-5532Cppoopadele Jaramillo PASTRY SOUS CHEF Work Phone: NOFD [facility] MedinceStart: 02-19-2025 End: 30-62-5306Soopgradele Jaramillo PASTRY SOUS CHEF Work Phone: [facility] [place] [facility] MedinceStart: 02-19-2025 End: 29-96-7052Hhxxho outpatient visit 25 minutesDaniela Jaramillo PASTRY SOUS CHEF Work Phone: [facility] [place] [facility] MedinceComment on above:Parkinson's disease without dyskinesia or fluctuating manifestations (HCC) (Primary Dx); Constipation, unspecified constipation type; Stage 3b chronic kidney disease (CMS-HCC); Primary hypertension ; Bilateral lower extremity edema; Chronic diastolic congestive heart failure (HCC)Start: 02-19-2025 End: 46-13-6650sukfptbvztOUG C MILLERNot AvailableStart: 02-03-2025 End: 51-29-8324CtxaykHlfepj B Berry MD Work Phone: [facility] [place] [facility] MedinceComment on above:Parkinson's disease, unspecified whether dyskinesia present, unspecified whether manifestations fluctuate (HCC)Start: 01-29-2025 End: 67-30-7058jhekndmoffQctkh Massouh MD Work Phone: [facility] Work Phone: Start: 01-29-2025 End: 75-28-3333Auazevk encounter procedureChrisviviane Monae DO-[facility] Work Phone: Start: 01-06-2025 End: 18-46-0554qnjikxmyryMNUKAdena Pike Medical Centertart: 12-29-2024 End: 49-71-9904Yrtwgc outpatient visit 25 minutesCherie Cedeno PA-C Work Phone: Neurological RestorationComment on above:Parkinson's disease with dyskinesia and fluctuating manifestations (HCC) (Primary Dx); Slow transit constipation; Gait instability; Fear of fallingStart: 12-29-2024 End: 47-73-7999forcjotdoqAHZU HARTWIGFacility:[facility] Hospitaltart: 12-25-2024 End: 63-47-4773Skckft outpatient visit 25 minutesJudith HUDSON Work Phone: NOMS CI FMComment on above:Abnormal weight loss (Primary Dx); Stage 3b chronic kidney disease (CMS-HCC); Parkinson's disease, unspecified whether dyskinesia present, unspecified whether manifestations fluctuate (HCC); Primary hypertension ; Hemiplegia, unspecified affecting right dominant side (HCC); Bilateral lower extremity edemaStart: 12-25-2024 End: 62-98-3349soydvpjrixANAWO M HEMMERNot AvailableStart: 12-24-2024 End: 69-87-9862Bwujdvjuu encounterDokeven Sams MD Work Phone: noms CI FMStart: 12-15-2024 End: 20-60-3965Dppkttdmoi and management of inpatientRuta Nadine HERRERA-[address] [place] [address] Work Phone: Start: 94-67-8949Vdc-patient / Non-visitGeorge Ramon Mcdonald MD-[facility] Work Phone: Start: 12-14-2024 End: 94-95-3751Mkgdyuzvj department patient visitTrish Christensen MD Work Phone: [phone]-Wtrycmmrv Room Work Phone: Start: 11-27-2024 End: 29-20-2841Bfsagpkfw encounterNoms Provider Unallocated Work Phone: noms CI FMStart: 11-26-2024 End: 23-70-8939Qamyxv outpatient visit 25 minutesDaniela Jaramillo PASTRY SOUS CHEF Work Phone: [facility] MedinceComment on above:Parkinson's disease without dyskinesia or fluctuating manifestations (HCC) (Primary Dx); Stage 2 chronic kidney disease; Primary insomnia; Neuropathy; Chronic obstructive pulmonary disease with acute lower respiratory infection (HCC); Chronic diastolic congestive heart failure (HCC); Primary hypertension ; Constipation, unspecified constipation type; Hypokalemia; Stage 3b chronic kidney disease (CMS-HCC); RLS (restless legs syndrome); Gastroesophageal reflux disease without esophagitis; Generalized anxiety disorderStart: 11-26-2024 End: 79-99-2732hqixfunlbwMPF C MILLERNot AvailableStart: 11-26-2024 End: 53-73-3366Ufzfwg Hannah Jaramillo PASTRY SOUS CHEF Work Phone: NOJS CI FMStart: 11-26-2024 End: 65-36-6403Vxvppryumiko Jaramillo PASTRY SOUS CHEF Work Phone: NOMS CI FMStart: 38-63-9025Psv-patient / Non-visit José Antonio Monae DO-[facility] Work Phone: Start: 01-19-1588agejxiehgrVVHCXXEl[facility] Ambulatory PPGStart: 10-28-2024 End: 54-02-0953Ysqaxddeuy and management of inpatientRanatalia Christensen MD-[facility] Work Phone: Start: 10-27-2024 End: 93-21-6124Vxeuajhcd department patient visitSt. [facility] Ambulatory PPGStart: 10-23-2024 End: 22-12-5600enswtisamsCqwoexe M HoyFacility:[facility] Start: 10-23-2024 End: 49-89-6054Nufgiqrm ReferredKavon Monae MD-LAB [facility] Start: 10-07-2024 End: 10-57-0076TqwgdjIsal Hartwig PA-C Work Phone: Neurological RestorationComment on above:Refill RequestStart: 10-01-2024 End: 49-30-2405Qgijtds encounter procedureDavid A Pocos DO Work Phone: noms NB ORTHOComment on above:Closed fracture of superior ramus of left pubis, initial encounter ([facility]) (Primary Dx); Other closed intra-articular fracture of distal end of right radius with routine healing, subsequent encounterStart: 10-01-2024 End: 50-77-9439mkxgbuicckMJKWG A POCOSNot AvailableStart: 09-24-2024 End: 43-77-9067Nvawlddla encounterKimmy Jaramillo RNNOMS NB ORTHOComment on above:Med RefillStart: 09-17-2024 End: 81-26-2557Znxuda outpatient visit 15 minutesSamary Jackson PASTRY SOUS CHEF Work Phone: aNA SANDUSKYComment on above:Parkinson's disease, unspecified whether dyskinesia present, unspecified whether manifestations fluc tuate (CMS/HCC) (Primary Dx); RLS (restless legs syndrome); Cerebral infarction, chronic; Carpal tunnel syndrome of right wrist; Other chronic painStart: 09-17-2024 End: 86-16-0708uswuthykfjZFPAQ CARROLLNot AvailableStart: 09-17-2024 End: 56-18-7753Xyrnmt Willard Jackson PASTRY SOUS CHEF Work Phone: aNA SANDUSKYStart: 09-17-2024 End: 31-64-5083Evoxksyumiko Jackson PASTRY SOUS CHEF Work Phone: ana SANDUSKYStart: 09-10-2024 End: 46-79-6951Rvvxmut encounter procedureDavid A Pocos DO Work Phone: noms NB ORTHOComment on above:Right wrist pain (Primary Dx); Pelvic pain; Other closed intra-articular fracture of distal end of right radius with routine healing, subsequent encounter; Closed fracture of superior ramus of left pubis, initial encounter ([facility]) Start: 09-10-2024 End: 05-93-4211xdizdqvghqGTPEK A POCOSNot AvailableStart: 09-10-2024 End: 44-75-0725coyfwgvhocAHQTR A POCOSNot AvailableStart: 86-13-6003Ubg-patient / Non-visitPatrick Tupa DO Work Phone: [facility] Orthopedics Work Phone: Start: 17-01-4307Aca-patient / Non-visitPatrick Tupa DO Work Phone: [facility] Work Phone: Start: 26-81-3975Skp-patient / Non-visitPatrick Tupa DO Work Phone: [facility] Work Phone: Start: 08-25-2024 End: 84-01-0936Rrvlomuslz and management of inpatientPatrick Tupa DO Work Phone: [facility] Work Phone: Start: 97-33-1206Uxb-patient / Non-visitPatrick Tupa DO Work Phone: [facility] Work Phone: Start: 08-20-2024 End: 43-94-7090Stpnahehvo and management of inpatientPatrick Tupa DO Work Phone: [place] [address] Ctr-[facility] Work Phone: Start: 08-13-2024 End: 29-37-4263kxmrjjllsqGvtwhuf [facility] Work Phone: Start: 08-13-2024 End: 31-48-8747Jncjdlpk Zuri Sams MD Work Phone: [facility]-LAB [facility] [place] HospStart: 08-13-2024 End: 64-33-9878paawoborrvWZRRAHU [facility] Hospitaltart: 08-12-2024 End: 19-60-4074Pdiwidflk to same day surgery centerDavid A Pocos [facility] Start: 08-12-2024 End: 33-30-0220ulnldnrjauRthat A PocosFacility:FTMCStart: 08-06-2024 End: 87-79-0672exstlulpyqSrurzy Luca [facility] Work Phone: Start: 08-06-2024 End: 70-99-1251Ojrckjzu Zuri Sams MD Work Phone: [facility]-LAB [facility] [place] HospStart: 08-06-2024 End: 19-05-7533Hbqtfax encounter procedureDavid A Pocos DO Work Phone: NOMS NB ORTHOComment on above:Right wrist pain (Primary Dx); Closed Colles' fracture of right radius with routine healing; Other closed fracture of distal end of right ulna with routine healing, subsequent encounterStart: 08-06-2024 End: 06-90-9132msqexdohfkNINTM A POCOSNot AvailableStart: 08-06-2024 End: 10-41-4837mulavfxszcYTEOO A POCOSNot AvailableStart: 08-03-2024 End: 82-55-5362Kicxamwln department patient visitChristopher Sales [facility] Start: 07-30-2024 End: 96-15-1709Pnuhla flowsheetDavid A Pocos DO Work Phone: NOMS ORTHOStart: 07-30-2024 End: 50-31-8420Bxxbyc flowsheetDavid A Pocos DO Work Phone: NOMS ORTHOStart: 07-30-2024 End: 98-66-8507Tosvmsfha encounterEmtrevon Cedeno PA-C Work Phone: Neurological RestorationComment on above:Surgical ClearanceStart: 07-30-2024 End: 02-76-5208Kgzdmlf encounter procedureDavid A Pocos DO Work Phone: noms NB ORTHOComment on above:Right wrist pain (Primary Dx); Closed Colles' fracture of right radius, initial encounter; Other closed fracture of distal end of right ulna, initial encounter; Parkinson's disease with dyskinesia, unspecified whether manifestations fluctuate (CMS/HCC); UnderweightStart: 07-30-2024 End: 01-94-7941wqehqltqftVKFLE A POCOSNot AvailableStart: 07-26-2024 End: 19-20-4653Szpfrkyoe department patient visitJohn ParenteFacility:[facility] CAMPUStart: 07-24-2024 End: 29-90-6815Pvcyhkknf department patient visitAstrit Zoltan TheaMercy Health St[facility] Start: 07-24-2024 End: 69-24-9193zcolmqmswrFfwtpri M [facility]oyM[facility] Work Phone: Start: 07-24-2024 End: 80-73-6106Notsgdfd Zuri Sams MD Work Phone: [facility]-LAB [facility] [place] HospStart: 07-16-2024 End: 83-24-6005faabzrbssiPUYQ HARTWIGFacility:[facility] Hospitaltart: 07-16-2024 End: 82-46-3585Iuwlfl outpatient visit 40 minutesLyndsaytrevon Wilian SZYMANSKI Work Phone: Neurological RestorationComment on above:Parkinson's disease with dyskinesia and fluctuating manifestations (HCC) (Primary Dx); Anxiety disorder due to known physiological condition; Hypophonia with hoarsenessStart: 05-21-2024 End: 63-97-9825Phhxbd Harshal Gill PASTRY SOUS CHEF Work Phone: [facility] [place] [address] R[address]TEStart: 05-21-2024 End: 93-50-5785Yoqbqy Harshal Gill PASTRY SOUS CHEF Work Phone: [facility] [place] [address] R[address]TEStart: 05-21-2024 End: 02-24-9254Izbqoe outpatient visit 25 minutesCathie Gill PASTRY SOUS CHEF Work Phone: noMS [facility] STATE ROUTEComment on above:Parkinson's disease, unspecified whether dyskinesia present, unspecified whether manifestations fluctuate (CMS/HCC) (Primary Dx); RLS (restless legs syndrome); Cerebral infarction, chronic; Other chronic pain; Carpal tunnel syndrome of right wristStart: 05-21-2024 End: 39-36-8536jitdbwucyeKWBIXK MORRISEmy AvailableStart: 05-03-2024 End: 66-02-5277yujberbphjZTOTEP MORRISNot AvailableStart: 04-21-2024 End: 52-94-0482Kafxex Harshal Gill PASTRY SOUS CHEF Work Phone: [facility] [place] [address]TEStart: 04-21-2024 End: 47-54-3072Qdywao Harshal Gill PASTRY SOUS CHEF Work Phone: [facility] [place] [address] R[address]TEStart: 04-21-2024 End: 59-03-4620Gbzfot outpatient visit 25 minutesCathie Gill PASTRY SOUS CHEF Work Phone: NOM[facility] [place] STATE R[address]TEComment on above:Parkinson's disease, unspecified whether dyskinesia present, unspecified whether manifestations fluctuate (CMS/HCC) (Primary Dx); Dyskinesia; RLS (restless legs syndrome); Cerebral infarction, chronic; Bilateral carotid artery stenosisStart: 04-21-2024 End: 09-97-5970renlkobluyPUUEAR BRIDGETNot AvailableStart: 02-23-2024 End: 86-00-0325NcimktTpkt Hartwig PA-C Work Phone: Neurological RestorationComment on above:Refill RequestStart: 02-22-2024 End: 09-65-4831Djxusl outpatient visit 40 minutesEmma Wilian PA-C Work Phone: Neurological RestorationComment on above:Parkinson's disease with dyskinesia and fluctuating manifestations (HCC) (Primary Dx)Start: 02-22-2024 End: 72-67-6040yluphzgmxtHLLX WILIANFacility:[facility] HospitalStart: 01-14-2024 End: 65-67-2524blpmdsnzxdTJUS WILIANFacility:[facility] HospitalStart: 01-14-2024 End: 29-01-4069Vjqxyt outpatient visit 40 minutesEmtn Wilian PA-C Work Phone: Neurological RestorationComment on above:Parkinson's disease with dyskinesia and fluctuating manifestations (HCC) (Primary Dx)Start: 11-19-2023 End: 63-55-5893qkxsigilczAfbgkiiBoaz Abebe MDFacility:[facility] [place] Start: 56-65-4800Jzmqslzsm Donna Valente MD Work Phone: Neurological RestorationComment on above:Medication Update/AmantadineStart: 10-22-2023 End: 23-68-4731utxqpqitytOekltyrBoaz Abebe MDFacility:[facility] [place] Start: 19-37-3245EuqsiiDlpp Zinn LOSS PREVENTION ANALYST.HEALTHCARE ADMINISTRATOR Work Phone: Neurological RestorationComment on above:Med Change RequestStart: 46-25-2445Kqbilnhjg Donna Valente MD Work Phone: Neurological RestorationComment on above:Results (MRI) Start: 10-15-2023 End: 33-53-8125noumliezeeBhus Zinn APRN.HEALTHCARE ADMINISTRATOR Work Phone: NeurologyComment on above:Parkinson's disease with dyskinesia and fluctuating manifestations (HCC) (Primary Dx)Start: 10-15-2023 End: 27-44-3040Qgyxwtfjmohf consultation with Ryan Roxana TEO Work Phone: NeurologyStart: 35-28-2251Hwmmzmoix encounterDavid Valente MD Work Phone: Neurological RestorationStart: 10-07-2023 End: 36-97-6140Fogfsrdyvn hospital visit by physicianMri 4 Radio Main Q (I-Stat/1.5t/3t) Work Phone: MRI QComment on above:Spinal stenosis of cervical region [M48.02]Abnormal posture [R29.3]Spinal stenosis of lumbar region with neurogenic claudication [M48.062]Start: 09-13-2023 End: 22-32-9725Zakittq encounter procedureDavid Valente MD Work Phone: Neurological RestorationComment on above:Hyperreflexia (Primary Dx); Spinal stenosis of cervical region; Abnormal posture; Spinal stenosis of lumbar region with neurogenic claudication; Neuropathy; Hypertension, unspecified type; Degenerative myopia with other maculopathy, bilateral eye; Parkinson's disease, unspecified whether dyskinesia present, unspecified whether manifestations fluctuate (HCC); Memory changesStart: 09-03-2023 End: 40-20-7911bwwewmeriwSyvkzcj Vytautas Giedraitis MDFacility:[facility] Start: 08-20-2023 End: 16-12-1122bessfjegdjPiazlfz Vytautas Giedraitis MDFacility:[facility] [place] Start: 07-30-2023 End: 79-55-0400hyuxgikfwjJislhgc Vytautas Giedraitis MDFacility:[facility] Start: 07-16-2023 End: 83-10-2804Frsoniarr department patient visitDemarco Beaver [facility] Start: 06-23-2023 End: 76-44-4842ZrulmxxyihnWdhelkxMercy Health [facility] Start: 05-15-2023 End: 67-97-4622twpbfpcvoeNY Kavon Sams Work Phone: [facility] Work Phone: Start: 05-15-2023 End: 69-30-7052Wmcdcoc encounter procedureMD Kavon Sams Work Phone: [facility] [place] Work Phone: Start: 10-09-2022 End: 52-01-6098veceppolqzLU KAVON SAMS .Facility:V8Mzswx: 05-24-2022 End: 10-12-1400khrjdzarlnTY KAVON SAMS .Facility:T2Cobey: 05-08-2022 End: 84-39-0249Dsbpqnirpe and management of inpatientDR KAVON SAMS .Facility:H1 Start: 03-29-2022 End: 15-68-0890yxlbjilcrpCO ANDREW PEDRAZA .Facility:B2Wjjli: 12-27-2021 End: 57-31-2506iyuginlgcmHZ KAVON SASM .Facility:P3Swlyg: 08-13-2017 End: 43-70-8265RejfklrwncOEZVKHL PHYSICIANFacility:[facility]ENTERtart: 08-11-2017 End: 85-01-9217Tjchvxtrlv and management of inpatientREFERRED SELFFacility:[facility] Start: 66-51-5351NFX myocardial ischemiaDavid Valente MD Work Phone: [facility] Work Phone: Procedures DateProcedureProcedure DetailPerforming ClinicianStart: 84-56-5706Cspig culture Damaso Charlton DO Work Phone: Start: 08-97-0644PG of head without contrastRafidann Christensen MD Work Phone: Start: 28-45-6864Zhbkb chest X-rayRafik Fermin HERRERA Work Phone: Start: 68-26-7873PI cervical spine without contrast Trish Christensen MD Work Phone: Start: 85-23-5431YH of head without contrastTrish Christensen MD Work Phone: Start: 98-44-7521Owdhg chest X-rayTrish Christensen MD Work Phone: Start: 63-99-9118Ufvmfioqpxlgk metabolic panelHowardm Tha Jaramillo PASTRY SOUS CHEF Work Phone: Start: 69-55-6915RF of head without contrastTrish Christensen MD Work Phone: Start: 63-69-9238Zqhul X-ray abdomenTrish Christensen MD Work Phone: Start: 11-71-5603Esftx chest X-rayTrish Christensen MD Work Phone: Start: 73-77-2910Cqyifitz identified in Blood by Viki Christensen MD Work Phone: Start: 89-42-6795Docldsvgppt Panel (PCR)Trish Christensen MD Work Phone: Start: 17-95-6613Myckq Viki Christensen MD Work Phone: Start: 22-30-4098Eazhp wrist complete minimum 3 views Herbie Pocos DO Work Phone: Start: 72-59-6836Mjwsdnzork examination pelvis 1/2 viewsDavid A Pocos DO Work Phone: Start: 71-25-4507Ysohs wrist complete minimum 3 views Herbie Pocos DO Work Phone: Start: 55-50-8593Wfvor X-ray of left hipPatrick Tupa DO Work Phone: Start: 32-05-5455ZU of head without contrastPatrick Tupa DO Work Phone: Start: 35-00-7130Inmvl culturePaSandwell Community C[facility] Trust ([facility])k [employer] DO Work Phone: Start: 36-17-5185Zxejslej identified in Blood by CulturePresto Servicesk [employer] DO Work Phone: Start: 25-84-6171Lphbb chest X-rayPagood samaritan hospitalk [employer] DO Work Phone: Start: 71-16-1502Mzbrwoxl identified in Blood by CulturePresto Servicesk [employer] DO Work Phone: Start: 43-07-7726Epgwn cultureGoomzee DO Work Phone: Start: 53-96-9308Cbogc cultureGoomzee DO Work Phone: Start: 10-16-3747Shel reduction of fracture with internal fixationDavid Pocos Start: 72-10-3378Yvlfj Amie Sams MD Work Phone: Start: 76-66-5609Smdmp wrist complete minimum 3 views Spua Davis Pocos DO Work Phone: Start: 34-65-6723Rwwvf wrist complete minimum 3 views Herbie Pocos DO Work Phone: Start: 19-02-2661Obful Amie Sams MD Work Phone: Start: 58-44-2386Inw spinal canal cervical w/o contrast Maximilian Valente MD Work Phone: Start: 24-38-5199GYV of headMD Kavon Sams Work Phone: Start: 58-93-4675Bdayhah of stentKristen GennariStart: 92-71-3254AJPFGCBWLNFJ OF SERUM/TOX/VACCINE INTO MUSCLE, PERC APPROACHDANANETTE Irving HEIDTStart: 22-82-7016LFUDCXA OF ARTERIAL SATURATION, PERIPHERAL, PERC APPROACH SUPA Irving HEIDTStart: 44-24-8221YHWJSDZKU OF SPLEEN, OPEN APPROACHATHANASIOS BRAMOSStart: 90-61-7713WVYQWUCLE NONAUT FROZEN PLASMA IN PERIPH VEIN, KAMALJITDAVID Aristides HEIDTStart: 54-50-0829AAZKMMSJG NONAUT PLATELETS IN PERIPH VEIN, PERCDAVID G HEIDTStart: 46-02-0682LFBOTEPHW NONAUT RED BLOOD CELLS IN PERIPH VEIN, PERCDAVID G HEIDTAppendectomyKristen GennariCataract (morphologic abnormality)Mela GennariHistory of repair of inguinal herniaDavieli Owen HysterectomyKristen GennariSplenectomyKristen Gennari Plan of Treatment DateCare ActivityDetailAutrStart: 55-35-2188Ayjgrseb ScreeningDiabetes ScreeningSelect Medical [facility], Avontart: 81-78-1116Csrzgjrl ScreeningDiabetes Screening [facility] Avontart: 09-29-2025 End: 96-96-5600Bzfjhjj encounter /21/2026 11:00 AM EDT Office Visit [facility] [address] [place] [address] Shaun Jackson NP [address] [place] [address] SUJEY SAMUELUEStart: 05-21-2025 End: 43-23-7890Pxxyxia encounter hypkclfug99/11/2025 11:30 AM EST Office Visit [facility] [place] [address] [facility] [address] [place] [address] Daniela Jaramillo NP [address] [place] [address] NOMMario [place] Fu [facility] CenternceStart: 05-14-2025 End: 08-32-9402Wxmyjmq encounter wrzujumsq90/04/2025 4:00 PM EST Office Visit Neurological [facility] [address] [place] [address] David Valente MD [address] [place] [address] Neurological RestorationStart: 61-90-6383RoatjctbxMount [facility] Start: 03-04-2025 End: 33-66-2174LihcaeehtMiami Valley Hospitaltart: 95-93-3113Psgivlzh to infectious diseases physicianMiami Valley Hospitaltart: 03-03-2025 [facility]: 70-81-8316Fkacmtnwfccnfi of prophylactic treatmentMiami Valley Hospitaltart: 03-02-2025 End: 07-63-0686OqecqeegwMiami Valley Hospitaltart: 79-47-1739Leaxredg admissionMi[facility] Valley Hospitaltart: 03-73-1198Gsturnf referral to dietitianMi[facility] Valley Hospitaltart: 65-58-7240Rhhgfwur therapy procedureMiami Valley Hospitaltart: 54-67-7849Ikggdcpq to occupational therapistMiami Valley Hospitaltart: 75-97-2833Uzmez chest X-rayXR chest 1V portableMiami Valley Hospitaltart: 27-74-6466IO Chest Single viewMiami Valley Hospitaltart: 02-27-2025 Bacteria identified in Urine by CultureUrine CultureMiami Valley Hospitaltart: 02-27-2025 End: 52-36-7477Cppsb cultureMiami Valley Hospitaltart: 02-26-2025 End: 90-39-3713Andqdwk encounter cjrjpyqsp54/18/2025 10:30 AM EDT Office Visit [facility] [address] [facility] [address] [place] [address] Daniela Jaramillo, PASTRY SOUS CHEF [address] [facility] [address] [place] [address] NOMS CI FMStart: 02-19-2025 End: 92-94-0398Lntuciv encounter procedureNOMS [place] [facility] MedinceComment on above:ArrivedStart: 78-50-8664Kiejdbmdq vaccinationInfluenza Vaccine (#1)NOMS HealthcareStart: 01-01-2025 End: 07-88-7285Buxmldx encounter ucymraofd61/24/2025 2:30 PM EDT Office Visit Geriatrics [address] [place], [place] [id number] Emiliano Faulkner MD [address] [place] [id number] GEMGeriatrics Comment on above:GEMStart: 12-25-2024 End: 23-95-1792Dkwuont encounter blnbfhijy56/17/2025 10:00 AM EDT Office Visit [facility] [address] [place] [address] Judith Murphy PA [address] [place] [address] NOMS CI FMStart: 55-13-5492SdwldjwecMiami Valley Hospitaltart: 15-10-0982Rjnxyzyx to [facility] Start: 67-78-6523Ocsjemjojbmwhs of prophylactic treatmentMiami Valley Hospitaltart: 48-95-8975Enysmftf admissionMiami Valley Hospitaltart: 11-26-2024 End: 05-71-1269Ypbuduz encounter nxkewvssq98/18/2025 3:00 PM EDT Office Visit [facility] [address] [facility] [address] [place] [address] Daniela Jaramillo, PASTRY SOUS CHEF [address] [facility] [address] [place] [address] ArrivedNOMS CI FMComment on above:ArrivedStart: 11-10-2024 End: 36-95-8829Rnetfqe encounter procedureNOMS NB ORTHOStart: 11-02-2024 [facility]: 76-91-5016Pnjumocdntklnc of prophylactic treatmentMiami Valley Hospitaltart: 68-95-6338Vhezxvrr to [facility]: 68-31-6022Xbeikjaj admission [facility]: 10-01-2024 End: 13-00-1280Rhvoupl encounter mqruutotg25/23/2025 9:45 AM EDT Office Visit [facility] [address] [place] [phone] Supa Owen, DO [address] [place] [address] [facility] KARLA ORTHOStart: 09-17-2024 End: 79-50-1773Fobvaxl encounter procedureSUJEY Alonzo on above:Arrived Start: 09-08-2024 End: 62-62-8475Qdvyzzx encounter kposqouer61/31/2025 9:40 AM EDT Office Visit [facility] [address] [place] [address] Cathie Gill, [address] [place] [address] [facility] R[facility]TEStart: 09-05-2024 [facility]: 29-94-8172ClwmdkbwnjplSyirvjoruMiami Valley Hospitaltart: 53-60-6327QsqmwohneMiami Valley Hospitaltart: 24-63-6751Mzxhtdld to neurologistMiami Valley Hospitaltart: 07-87-6450TotpxcrhdMiami Valley Hospitaltart: 10-39-8226Engvfdmc admission [facility]: 22-71-6052Ylsbismt to clinical midwife [facility]: 20-34-1525DtpzbdkroMi[facility] Valley Hospitaltart: 47-71-0899Vygrioccdndmyw of prophylactic treatmentMiami Valley Hospitaltart: 71-23-3800Wvwtfkzo to neurologistMiami Valley Hospitaltart: 40-46-4905Qisxorsf to rehabilitation physician [facility]: 09-97-3623Nxhnwcvd identified in Blood by CultureBlood CultureMiami Valley Hospitaltart: 08-21-2024 [facility]: 62-66-1308Puvahpui therapy procedure [facility]: 38-76-2690Lghuangx to occupational therapistMi[facility] Valley Hospitaltart: 08-21-2024 End: 29-97-2518GarifammvMi[facility] Valley Hospitaltart: 18-87-5308Yeugbqtn admissionMiami Valley Hospitaltart: 56-38-3624Ratzt culture [facility]: 97-97-3018KlowundyxMi[facility] Valley Hospitaltart: 41-64-3402Wieoskrs identified in Blood by CultureBlood Culture [facility]: 19-93-9045Whgpbbjx identified in Urine by CultureUrine CultureMiami Valley Hospitaltart: 03-19-6904Qxgls [facility]: 76-76-6051Dddwahbp identified in Urine by CultureUrine [facility]: 08-06-2024 Bacteria identified in Urine by CultureUrine [facility]: 04-96-1945Yaxgd [facility]: 08-06-2024 End: 47-14-6843Amktgvw encounter jebeylwev55/26/2025 10:30 AM EST Office Visit [facility] [address] [place] [phone] PocSupa daly A, DO [address] [place] [address] [facility] NB ORTHOStart: 07-30-2024 End: 73-72-6758Eldsdhh encounter ipyhueqwf43/19/2025 8:00 AM EST Office Visit [facility] [address] [place] [address] PocSupa daly A, DO [address] [place] [address] ArrivedNOMS NB ORTHOComment on above:ArrivedStart: 07-24-2024 Urine [facility]: 64-20-7079Uukkwgnh identified in Urine by CultureUrine [facility] Start: 19-44-7748Gcaokms Directive DiscussionAdvance Directive Discussion [facility]: 05-21-2024 End: 07-12-2667Lsconjk encounter procedureNOREGENCY HOSPITAL TOLEDO ROUTEComment on above:ArrivedStart: 05-03-2024 End: 65-82-7490Dbkqnitwzfnr / ancillary services ulixhbipxq23/23/2024 3:20 PM EST Ancillary Procedure [facility] [address] [address] [place] [phone] Cerebral infarction, chronic; Bilateral carotid artery stenosisNOREGENCY HOSPITAL TOLEDO ROUTEComment on above:Cerebral infarction, chronic; Bilateral carotid artery stenosisStart: 04-21-2024 End: 64-13-3242Bcettsp encounter yncinloej45/11/2024 8:40 AM EST Office Visit [facility] [address] [facility] [address] [place] [phone] Cathie Gill NP [address] [facility] [address] [place] [address] ArrivedNOREGENCY HOSPITAL TOLEDO ROUTEComment on above:ArrivedStart: 02-22-2024 End: 27-84-0498Bewvymk encounter ijmpnebkp34/13/2024 3:00 PM EDT Office Visit Neurological [facility] [address] [place] [address] Cherie Cedeno PA-C [address] [place] [address] Neurological RestorationStart: 77-49-9378Aavnk-19 Vaccine ( season)Covid-19 Vaccine ( season)[facility]: 90-04-0853Jvyhs-19 Vaccine ( season)Covid-19 Vaccine ( season)[facility]: 07-85-1103Xgzsvibra vaccinationSelect [facility] Start: 01-14-2024 End: 67-25-3578Fmykgvw encounter khlirwefh58/05/2024 2:00 PM EDT Office Visit Neurological Mu-Ism [address] [place] [address] Cherie Cedeno PA-C [address] [place], [place] [id number] 3 mo f/uNeurological RestorationComment on above:3 mo f/u Start: 10-15-2023 End: 36-87-9319Mbvvlw-up cesqzdnoe39/06/2024 10:30 AM EDT [facility] [address] [place] [address] Hiral Ortega APRN.HEALTHCARE ADMINISTRATOR [address] [place] [address] Follow up NeurologyComment on above:Follow upStart: 09-13-2023 End: 55-49-8955EYJ BY IFA WITH REFLEXParkview Health Work Phone: Comment on above:Expected: 09/13/2023, Expires: 12/13/2023Start: 09-13-2023 End: 46-71-7195Obwgpyswdheoma [Moles/volume] in Serum or [facility] Work Phone: Comment on above:Expected: 09/13/2023, Expires: 12/13/2023Start: 09-13-2023 End: 37-43-1386VMVNVRC ELECT RND UR W/[facility] Work Phone: Comment on above:Expected: 09/13/2023, Expires: 12/13/2023Start: 09-13-2023 End: 38-68-0362FXBQJLB ELECTROPHORESIS SERUM W/[facility] Work Phone: Comment on above:Expected: 09/13/2023, Expires: 12/13/2023Start: 21-98-7363Hpmoudq Directive DiscussionAdvance Directive DiscussionSelect [facility]art: 78-13-6078Zdwfl-19 Vaccine ( season) Covid-19 Vaccine ( season)[facility]: 35-85-5309UXG Vaccine (1 - 1-dose 75+ series)RSV Vaccine (1 - 1-dose 75+ series)[facility]: 86-09-7888Vplodlwexktw Vaccine: 50+ (2 of 2 - PCV)Pneumococcal Vaccine: 50+ (2 of 2 - PCV)[facility]: 70-13-5882Xaqrkkmsfnvd Vaccine: 65+ (2 of 2 - PCV)Pneumococcal Vaccine: 65+ (2 of 2 - PCV)[facility]: 99-19-1455Nexcqlzkxyqi Vaccine: 65+ Years (2 of 2 - PCV) Pneumococcal Vaccine: 65+ Years (2 of 2 - PCV)[facility] SpringsStart: 2011 Screening for osteoporosisBone Density ScreeningSelect [facility], [facility]art: 08-01-2011Medicare Annual Wellness VisitMedicare Annual Wellness VisitSelect Medical [facility] Hospital, [facility]ontart: 40-79-9594QCJ Vaccine (1 - 1-dose 60+ series)RSV Vaccine (1 - 1- dose 60+ series)[facility]: 33-89-7223Iccrzuae Vaccine (1 of 2) Shingrix Vaccine (1 of 2)[facility]: 43-17-8143Invxm microalbumin profileDTaP,Tdap,Td Vaccine (1 - Tdap)[facility]: 82-30-0095Ottrvv PCP Team Chronic Disease VisitAnnual PCP Team Chronic Disease VisitSelect Medical [facility], [facility]ontart: 34-80-8718Wwptaey ScreeningAnxiety ScreeningSelect [facility], [facility]art: 54-28-4467AZ Controlled (<130/80)BP Controlled (<130/80)[facility]: 22-30-4420Ainiupcvhx ScreeningDepression ScreeningSelect Medical [facility], [facility]art: 20-82-7753Dznmbcuqm C screeningHepatitis C ScreeningSelect [facility]ty [facility]25- hydroxyvitamin D2 [Mass/volume] in Serum or PlasmaMount St. Mary Hospital25-hydroxyvitamin D3 [Mass/volume] in Serum or PlasmaMount St. Mary Hospital25-Hydroxyvitamin D3+25-Hydroxyvitamin D2 [Mass/volume] in Serum or PlasmaMount St. Mary HospitalAnion gap measurementMount St. Mary HospitalAnion gap measurementMount St. Mary Hospital Basophils [#/volume] in Blood by Automated [facility] HospitalBasophils [#/volume] in Blood by Automated [facility] HospitalBasophils/100 leukocytes in Blood by Automated [facility] HospitalBasophils/100 leukocytes in Blood by Automated [facility] HospitalEosinophils/100 leukocytes in Blood by Automated count [facility] HospitalEosinophils/100 leukocytes in Blood by Automated [facility] HospitalErythrocyte distribution width [Ratio] by Automated [facility] HospitalErythrocyte distribution width [Ratio] by [facility] Erythrocytes [#/volume] in [facility] HospitalErythrocytes [#/volume] in [facility] HospitalGlomerular filtration rate [Volume Rate/Area] in Serum, Plasma or Blood by [facility] HospitalHematocrit [Volume Fraction] of [facility] HospitalHematocrit [Volume Fraction] of [facility] Hemoglobin [Mass/volume] in [facility] HospitalHemoglobin [Mass/volume] in [facility] HospitalLeukocytes [#/volume] corrected for nucleated erythrocytes in Blood by Automated [facility] HospitalLeukocytes [#/volume] corrected for nucleated erythrocytes in Blood by [facility] Leukocytes [#/volume] in [facility] HospitalLeukocytes [#/volume] in [facility] HospitalLymphocytes [#/volume] in Blood by Automated [facility] HospitalLymphocytes [#/volume] in Blood by Automated [facility] HospitalLymphocytes/100 leukocytes in Blood by Automated [facility] Lymphocytes/100 leukocytes in Blood by Automated [facility] HospitalMCH [Entitic mass] by Automated [facility] HospitalMCH [Entitic mass] by Automated [facility] HospitalMCHC [Mass/volume] by Automated [facility] HospitalMCHC [Mass/volume] by Automated [facility] HospitalMCV [Entitic volume] by Automated [facility] HospitalMCV [Entitic volume] by Automated [facility] HospitalMonocytes [#/volume] in Blood by Automated [facility] HospitalMonocytes [#/volume] in Blood by Automated [facility] HospitalMonocytes/100 leukocytes in Blood by Automated [facility] Monocytes/100 leukocytes in Blood by Automated [facility] End: 74-73-9087SJ Cervical spine WO contrastMRI CERVICAL SPINE WO IVCON Radiology Routine Spinal stenosis of cervical region 1 Occurrences starting 09/13/2023 until 5CLake[facility] Work Phone: Comment on above:1 Occurrences starting 09/13/2023 until 10/12/2024 End: 81-72-7541AA Lumbar spine WO contrastMRI LUMBAR SPINE WO IVCON Radiology Routine Spinal stenosis of lumbar region with neurogenic claudication 1 Occurrences starting 09/13/2023 until 5CLakeHealth [facility] Work Phone: Comment on above:1 Occurrences starting 09/13/2023 until 10/12/2024 End: 93-88-9480PJ Thoracic spine WO contrastMRI THORACIC SPINE WO IVCON Radiology Routine Abnormal posture 1 Occurrences starting 09/13/2023 until 10/12/2024[facility] Work Phone: Comment on above:1 Occurrences starting 09/13/2023 until 10/12/2024Neutrophils [#/volume] in Blood by Automated [facility] HospitalNeutrophils [#/volume] in Blood by Automated count [facility] HospitalNeutrophils/100 leukocytes in Blood by Automated [facility] HospitalNeutrophils/100 leukocytes in Blood by Automated [facility] HospitalNucleated erythrocytes [Presence] in Blood by Automated [facility] HospitalNucleated erythrocytes [Presence] in Blood by Automated [facility] HospitalParathyrin related protein [Moles/volume] in Serum or PlasmaMount St. Mary HospitalPatient EducationMansfield Hospital Ctr Work Phone: Patient referralMansfield Hospital Ctr Work Phone: Platelet mean volume [Entitic volume] in Blood by Automated [facility] HospitalPlatelet mean volume [Entitic volume] in Blood by Automated [facility] HospitalPlatelets [#/volume] in BloodMount St. Mary HospitalPlatelets [#/volume] in [facility] Memorial HospitalXR Pelvis 1 or 2 ViewsXR pelvis 1 or 2 views Imaging Routine Closed fracture of superior ramus of left pubis, initial encounter ([facility]) 10/01/2024 8:32 AM EDTNOMS HealthcareXR Wrist - right 3 ViewsXR wrist 3+ views right Imaging Routine Right wrist pain 07/30/2024 7:58 AM [facility] Work Phone: XR Wrist - right 3 ViewsXR wrist 3+ views right Imaging Routine Right wrist pain 08/06/2024 8:11 AM [facility] Work Phone: XR Wrist - right 3 ViewsXR wrist 3+ views right Imaging Routine Other closed intra-articular fracture of distal end of right radius with routine healing, subsequent encounter 10/01/2024 8:32 AM [facility] Work Phone: [facility] Immunizations Immunization DateImmunizationNotesCare SnfqdfjmRyawdxuj76-55-9513ictngtt vaccine or immune globulinKavon Sams MD Work Phone: [phone] [place], [place] [address]Clfvvuvysp16-29-9156Dlkxojms trivalent influenza vaccine, adjuvanted, preservative Agus Sams MD Work Phone: [phone] [place], [place] [address]Fsibvkbzgj17-97-8977frgwvohkl virus vaccine, unspecified formulationDavid Valente MD Work Phone: [facility] SouthUpwiip05-92-2071Duarzcle trivalent influenza vaccine, adjuvanted, preservative Agus Sams MD Work Phone: [phone] [place], [place] [address]Wtfxphnudi39-04-1281mnjlulwyfbxu polysaccharide vaccine, 23 valentKavon Sams MD Work Phone: [phone] [place], [place] [address]Nqwjhinpos34-05-7430Rvvsuppj trivalent influenza vaccine, adjuvanted, preservative Agus Sams MD Work Phone: [phone] [place], [place] [address]Kmwqyocomo19-78-2736cakyanhop, high dose seasonal, preservative-Agus Sams MD Work Phone: [phone] [place] [address] Payers DatePayer CategoryPayerPolicy [id number] 2025Self-pay [id number] Health [id number] 2011Medicare [id number] [id number] 1960 [id number] 2.16.840.1.168443.[id number] 2.16.840.1.450416.3.57[id number] 2.16.840.1.944931.3.57[id number] 2.16.840.1.591360.3.579.2.25023-18-1671Kgnfoqb6184868 2.16.840.1.894309.3.579.[id number] 2.16.840.1.763623.3.579.2.05273-46-5149Esjguzc603210231 2.16.840.1.929567.3.579.2.31845-67-5898Bkirwvg136265241 2.16840.1.270673.3.579.2.97556-46-9783Ugmrhrq324034801 2.16.840.1.562788.3.579.2.51437-04-4862Hgcfltk321991717 2.16840.1.060377.3.579.2.78973-19-5059Kvbbedf52908907 2.16.840.1.388382.3.579.2.04435-92-3854Nizbupm62729998 2.16840.1.318877.3.579.2.19835-78-8539Qoyrksj30299170 2.16840.1.111372.3.579.2.74645-01-6367Hgfhzef49211924 2.16840.1.090160.3.579.2.92481-87-9831Xtbtjhg89700649 2.16840.1.915148.3.579.2.43985-59-6181Tldfryu22822683 2.16840.1.696633.3.579.2.66907-76-2123Nuhnhnc63705236 2.16840.1.808874.3.579.2.10092-38-1036Hpavhjc75438103 2.16840.1.894641.3.579.2.347857-45-9239Pqkpgtz75590855 2.840.1.238901.3.579.2.856590-01-8159Kcvmwog66586133 2.840.1.177552.3.579.2.258580-16-1681Ttehxhi8877808 2.840.1.455469.3.579.2.130807-53-5295Vdassgw5377164 2.16840.1.026177.3.579.2.547970-57-1855Tbfgnpd9136126 2.16840.1.036428.3.579.2.203341-15-1784Lfhxsgs4908937 2.16840.1.098825.3.579.2.298954-04-3171Hgfagbz0248872 2.16840.1.079426.3.579.2.999767-53-8143Qbyyvaw7522698 2.16840.1.498691.3.579.2.435274-53-5405Sqehrtn8897010 2.0.1.380600.3.579.2.946121-84-8729Mmkrdeb8883710 2..1.061928.3.579.2.717243-04-3934Nozdwct0848994 2.0.1.700562.3.579.2.438697-57-1339Azclgcq6339132 2.0.1.421418.3.579.2.078058-06-6028Vkcpvhq2101152 2..1.086244.3.579.2.142276-95-1301Jaqxemu7512960 2..1.718199.3.579.2.685495-78-5847Wgtxjys1699184 2..1.109447.3.579.2.213009-97-6117Vixxhzs3248711 2..1.314413.3.579.2.484240-82-3891Udaomra3659572 2.0.1.324[id number] 2..1.255324.3.579.2.836Bileimz09308578 2.0.1.118079.3.579.2.531 Nbiodkr06817303 2.840.1.140709.3.579.2.706Mbwficz81759809 2.0.1.498905.3.579.2.284Hdfhmcq53678270 2.0.1.699966.3.579.2.531 Hhagpsm61881694 2.840.1.127654.3.579.2.436Uzozpgi68154668 2.16.840.1.402033.3.579.2.293Aljpazy86122896 2.16.840.1.923630.3.579.2.531 Hrfsgmo59219895 2.16.840.1.479921.3.579.2.379Nuhokoc23005085 2.16.840.1.494338.3.579.2.761Vgalazz54793351 2.16.840.1.716873.3.579.2.531 Social History DateTypeDetailFacilityTobacco smoking status NHISUnknown if ever smokedKindred Hospital Dayton Work Phone: Start: 63-52-8586Xrm Assigned At [facility]atart: 03-04-2020 End: 57-45-4663Mytzazp smoking statusEx-smoker (finding)[facility]: 09-13[facility]2023 End: 85-18-2314Cpe [facility] 07-02-1957 End: 12-33-4473Zqckgjl of tobacco useCurrent smokerSelect Medical [facility], [facility]art: 07-02-1957 End: 36-83-3891Mzocetq of tobacco useCigarette SmokerSelect Medical [facility], [facility]ontart: 09-13-2023 End: 11-84-8869Abtafvlrxf smoked current (pack per day) - Reported0.5C[facility]. [facility] ClinicStart: 09-13-2023 End: 29-62-4821Vvqipsz use and exposureSmokeless tobacco non-userSelect Medical [facility], Avontart: 09-13-2023 End: 26-93-7302Ouhnfut intakeCurrent non-drinker of alcohol (finding)[facility] Depression Screening Cdvrzwysnt5Kwflsghen ClinicStart: 82-13-5247Vmg Assigned At BirthNot on fileSelect Medical Cleveland Clinic Rehabilitation [facility], Avontart: 10-25-2023 End: 70-80-8330Cnxnbjc smoking status NHISNever smoked tobaccoNOND Healthcare Start: 10-29-2023 End: 96-16-5463Noanxplip beverage intakeLifetime non-drinker (finding)[facility] HealthcareStart: 12-52-3741Yrxzvdp Commentcaffeine: 1-2 cups per dayNOND HealthcareTobacco smoking status NHISUnknown if ever smokedKindred Hospital Dayton Work Phone: Start: 07-26-2024 End: 97-95-9432OiuHukrrx (finding)[facility]: 09-04-2024 End: 02-10-0816XGZM Follow upSDOH Follow upKindred Hospital Dayton Work Phone: Medical Equipment Procedure CodeEquipment CodeEquipment Original TextEquipment IdentifierDates WRIST FRACTURE ORIF Pocos DO, Herbie 08/12/24 Non Biological Wrist RFDAStart: 37-88-8612BDCUT FRACTURE ORIF Pocos DO, Herbie 08/12/24 Non Biological Wrist RFDA Start: 43-99-1380ZQHVM FRACTURE ORIF Pocos DO, Herbie 08/12/24 Non Biological Wrist RFDAStart: 37-60-6784YMRWC FRACTURE ORIF Pocos DO, Herbie 08/12/24 Non Biological Wrist RFDAStart: 74-59-2514CLWPL FRACTURE ORIF Pocos DO, Herbie 08/12/24 Non Biological Wrist RFDAStart: 24-41-0555CPVYF FRACTURE ORIF Pocos DO, Herbie 08/12/24 Non Biological Wrist RFDAStart: 08-12-2024 Goals DatePatient GoalDesired Activity/State Functional Status AisoBctsvrbcloBbxplsQjrdguru44-62-3059Ienovin Health Questionnaire 2 item (PHQ- 2) [Reported][facility] SpringsPmlnxlyhbx05-40-7364MAY-0 quick depression assessment panel [Reported.PHQ][facility] SpringsAqzwhlkkun72-60-0992Yqfbstr Health Questionnaire 2 item (PHQ- 2) [Reported][facility] SpringsOrywctzgfb47-06-5866Cmbkitr Health Questionnaire 2 item (PHQ- 2) [Reported][facility] SpringsTklfmkgirb61-75-7627WEG-8 quick depression assessment panel [Reported.PHQ][facility] SpringsJjovqgwkeb30-31-9815Cqtfxmqtup statusPatient at Baseline [facility] Work Phone: [phone]hmgpsds statusPatient at Baseline [facility] Work Phone: [phone]tuzcwris statusPatient at Baseline [facility] Work Phone: [phone]djehdxt StatusNoMercy Health St. [facility]02-23-2025Functional StatusN/AFOhio State East Hospital02-15-2025 Functional StatusN/[facility]02-13-2025Functional StatusN/A [facility] HospitalZfydpb79-34-0818Hhnvbpcnvp StatusN/KAITLYNNOhio State East Hospital01-13-2024Functional StatusN/KAITLYNNOhio State East Hospital 97-91-3465Jgrjcaudaf StatusMercy Health St. [facility]03-12-2015Are you deaf, or do you have serious difficulty hearingNo 08/20/2014 7:00 AM Felicia Guillory LPN [facility] HospitalFbkkvo78-03-2872Ksh you blind, or do you have serious difficulty seeing, even when wearing glassesNo 08/20/2014 7:00 AM Felicia Guillory LPN No [facility] SouthHqyiex00-10-4865Ch you have serious difficulty walking or climbing stairsNo 08/20/2014 7:00 AM Felicia Guillory LPN [facility]03-12-2015Do you have difficulty dressing or bathingNo 08/20/2014 7:00 AM Felicia Guillory LPN [facility] HospitalGafuze65-94-9400Oprhvxp of a physical, mental, or emotional condition, do you have difficulty doing errands alone such as visiting a physician's office or shoppingNo 08/20/2014 7:00 AM Felicia Guillory LPN No [facility] Mental Status ZfehXsgozombptOnozxfRoabohli84-91-3995Eabtjyffp functionCognitive Status Patient at BaselineKindred Hospital Dayton Work Phone: 1(800) 304-711603-061180-74-4038Ptpkiorao functionCognitive Status Patient at BaselineKindred Hospital Dayton Work Phone: 1(484) [phone]quidxx functionCognitive Status Patient at BaselineKindred Hospital [facility] Work Phone: [phone]nidz of a physical, mental, or emotional condition, do you have serious difficulty concentrating, remembering, or making decisionsNo 08/20/2014 7:00 AM Felicia Guillory LPN [facility] Clinical Notes 06-23-2023 to 03-23-2025 Note Date & AucpYclxEnfdpqwx43-79-8129 NoteSUBJECTIVE Reason for Visit: Judith Land is a [...] Anion Gap 09/18/2023 10 eGFR 09/18/2023 60.9 BUN/Creatin (more content not included)...[facility] 03-02-2025 [place] [address] Hospitalist H&P Signed Patient: Judith Land MR#: [id number] : 1945 Acct:[id number] Age/Sex: 80 / F Adm Date: 5 Loc: Room: [address] [place] [address] Type: ADM IN Attending Dr: Connor Dumont DO Copies to: QUEENIE Van, ~ HPI DATE OF EXAMINATION: 03/02/25 CHIEF COMPLAINT: Hallucinations and acute confusion. HISTORY OF PRESENT ILLNESS: This is a 80-year-old woman with Parkinson's disease who came to the emergency room because of severe confusion and hallucinations. She is saying things that do not make sense. She was talking to alfonzo and her who had . She was accompanied in the emergency room by her daughter.3 days ago, on Sunday, they took the patient to urgent care when it was felt that she was developing a UTI. Urgent care prescribed Keflex. But the patient did not improve over the weekend and had theworsening confusion and hallucinations. Right now the urine culture from that urgent care visit on Sunday is growing Pseudomonas but the sensitivities are not back yet. The patient had a hospital stay in December of this year due to hypertensive emergency. She was also dehydrated at that time. She also had a hospital stay inMay of this year for aspiration pneumonia. Vivien had hospital stay in August of this year due to urinary tract infection with Pseudomonas. Ciprofloxacin andLevaquin would have worked on that Pseudomonas. After that she went to the [address] [place] [address] for acute rehab. In the room right now the patient is very pleasantly confused at 4:00 in the morning. Her daughter is at the bedside. When I asked the patient to hold out her hand so I can assess her for tremor she holds her legs up. She babbles mostly about nonsense things and has difficulty following my commands. But withsome effort she is redirectable. Overall she does clinically look dehydrated. She has so much acute confusion that I do not think she could complain about theUTI even if she was having active UTI symptoms. Review of Systems Review of Systems Review of systems: A 10 point review of systems is negative except as mentioned above in the history of present illness or elsewhere in this H&P. Symptom review is providedby the patient's daughter as the patient himself has no insight into her currentcondition. 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 Family History Mother Stroke Father Cancer Lung Son Cancer Lymphoma Social History Smoking Status: Former smoker Tobacco Type: cigarettes Substance Use Type: None Meds Medications and Allergies Allergies Sulfa (Sulfonamide Antibiotics) Allergy (Verified 03/02/25 02:05) Difficulty Breathing sulfamethoxazole (From Bactrim) Allergy (Verified 03/02/25 02:05) Difficulty Breathing trimethoprim (From Bactrim) Allergy (Verified 03/02/25 02:05) Difficulty Breathing Home Medications ropinirole 0.25 mg tablet 0.5 mg PO QHS 10/28/24 [History Confirmed 02/27/25] diltiazem HCl 180 mg capsule,extended release 24 hr (Cardizem CD) 180 mg PO DAILY #30 caps 11/02/24[Rx Confirmed 02/27/25] alprazolam 1 mg tablet 1 mg PO HS 12/15/24 [History Confirmed 02/27/25] aspirin 81 mg tablet 81 mg PO DAILY #30 tabs 12/18/24 [Rx Confirmed 02/27/25] hydralazine 50 mg tablet 50 mg PO BID #60 tabs 12/18/24 [Rx Confirmed 02/27/25] polyethylene glycol 3350 17 gram oral powder packet (HealthyLax) 17 g PO DAILY #30 ea 12/18/24 [Rx Confirmed 02/27/25] quetiapine 25 mg tablet 25 mg PO QHS 30 days #30 tabs 12/18/24 [Rx Confirmed 02/27/25] sennosides 8.6 mg tablet (Senna Lax) 17.2 mg (2 x 8.6 mg) PO BID PRN constipation #60 tabs 12/18/24[Rx Confirmed 02/27/25] rasagiline 1 mg tablet 1 mg PO DAILY 30 days #30 tabs 01/14/25 [Rx Confirmed 02/27/25] amantadine HCl 100 mg tablet 100 mg PO TID 01/29/25 [History Confirmed 02/27/25] carbidopa 10 mg-levodopa 100 mg tablet (Sinemet) 1 tab PO QID 01/29/25 [History Confirmed 02/27/25] cephalexin 500 mg capsule 500 mg PO TID 7 days #21 caps 02/27/25 [Rx Confirmed 02/27/25] docusate sodium 100 mg capsule 100 mg PO TID PRN 02/27/25 [History Confirmed 02/27/25] potassium chloride 20 mEq tablet,extended release(part/cryst) 20 meq PO BID 02/27/25 [History Confirmed 02/27/25] spironolactone 25 mg tablet 25 mg PO QAM 02/27/25 [History Confirmed 02/27/25] Exam Physical Exam Vital Signs: Temp Pulse Resp BP Pulse Ox O2 Del Method 97.7 F 78 20 167/90 H 93 L Room Air 03/02/25 02:40 03/02/25 04:00 03/02/25 02:40 03/02/25 04:00 03/02/25 04:00 03/02/25 04:00 Narrative: GEN: With moderate amount of metabolic encephalopathy. Patient is severely underweight with a weight of 42.8 kg and a BMI of 15 and very thin extremities with muscle wasting. Head: Normal Cephalic, Atraumatic. Eyes: Conjunctiva and sclera clear bilaterally. EOMI. Nose: External nose and nares normal bilaterally. Mouth: Lips and tongue normal. Mucosal membranes are dry suggesting dehydration. Neck: No JVD. No thyromegaly. No lymphadenopathy. Lungs: Clear to auscultation bilaterally, no wheezing, no crackles. Heart: Regular rate and rhythm, no murmurs, rubs, or gallops. Abdomen: Soft, normal bowel sounds, no rigidity, guarding, or acute peritoneal signs. Extremities: No swelling or cords in the calves bilaterally, no edema in the ankles bilaterally. Skin: No systemic rashes or lesions. Psychiatric: Acutely confused. Difficulty following commands. Neuro: Moderate cogwheeling tremor is present. Results - Hospitalist H&P Lab Results Labs: Laboratory Last Values Corrected WBC 6.3 X10E3/uL (3.8-11.6) 03/02/25 02:10 Uncorrected WBC Count 6.3 x10E3/uL (3.8-11.6) 03/02/25 02:10 RBC 4.38 x10E6/uL (3.60-5.00) 03/02/25 02:10 Hgb 13.4 g/dL (11.8-15.4) 03/02/25 02:10 Hct 39.7 % (34.0-46.4) 03/02/25 02:10 MCV 90.7 fl (80-100) 03/02/25 02:10 MCH 30.6 pg (24.7-34.3) 03/02/25 02:10 MCHC 33.8 g/dL (32.0-35.0) 03/02/25 02:10 RDW 14.7 % (11.9-15.3) 03/02/25 02:10 Plt Count 274 x10E3/uL (150-450) 03/02/25 02:10 MPV 9.5 fl (6.3-10.7) 03/02/25 02:10 Neut % (Auto) 45.0 % (.) 03/02/25 02:10 Lymph % (Auto) 31.7 % (.) 03/02/25 02:10 Nye % (Auto) 15.1 % (.) 03/02/25 02:10 Eos % (Auto) 7.2 % (.) 03/02/25 02:10 Baso % (Auto) 1.0 % (.) 03/02/25 02:10 Nucleat RBC Rel Count 0.1 /100 WBC (0-0.5) 03/02/25 02:10 Neut # (Auto) 2.8 x10E3/uL (1.8-7.7) 03/02/25 02:10 Lymph # (Auto) 2.0 x10E3/uL (1.00-4.8) 03/02/25 02:10 Nye # (Auto) 1.0 x10E3/uL (0.0-0.8) H 03/02/25 02:10 Eos # (Auto) 0.5 x10E3/uL (0.0-0.45) H 03/02/25 02:10 Baso # (Auto) 0.1 x10E3/uL (0.0-0.2) 03/02/25 02:10 Monocyte Dist Width 17.43 % (0.00-20.00) 03/02/25 02:10 Platelet Estimate Normal (Normal) 03/02/25 02:10 Large Platelets Slight 03/02/25 02:10 Plt Morphology Comment N/A 03/02/25 02:10 RBC Morphology N/A 03/02/25 02:10 Poikilocytosis Moderate 03/02/25 02:10 Crenated Cell Moderate 03/02/25 02:10 PHA Creatinine Clear 25.47 03/02/25 02:10 Sodium 138 mmol/L (136-145) 03/02/25 02:10 Potassium 4.2 mmol/L (3.5-5.1) 03/02/25 02:10 Chloride 106 mmol/L (98-107) 03/02/25 02:10 Carbon Dioxide 25.9 mmol/L (21.0-31.0) 03/02/25 02:10 Anion Gap 10.3 mEq/L (6.0-15.0) 03/02/25 02:10 BUN 24 mg/dL (7-25) 03/02/25 02:10 Creatinine 1.21 mg/dL (0.60-1.20) H 03/02/25 02:10 Est GFR (CKD-EPI) 45.590 mL/Min 03/02/25 02:10 Glucose 98 mg/dL (70-100) 03/02/25 02:10 Calcium 11.6 mg/dL (8.6-10.3) H 03/02/25 02:10 Total Bilirubin 0.5 mg/dl (0.3-1.0) 03/02/25 02:10 AST 9 U/L (13-39) L 03/02/25 02:10 ALT < 3 U/L (7-52) L 03/02/25 02:10 Alkaline Phosphatase 129 U/L (34-104) H 03/02/25 02:10 Total Creatine Kinase 21 U/L (30-223) L 03/02/25 02:10 Troponin I High Sens 41 ng/L (0-15) H 03/02/25 02:10 Total Protein 6.8 gm/dL (6.4-8.9) 03/02/25 02:10 Albumin 4.5 gm/dL (3.5-5.7) 03/02/25 02:10 Globulin 2.3 gm/dL 03/02/25 02:10 Albumin/Globulin Ratio 2.0 03/02/25 02:10 Assessment & Plan Assessment/Plan (1) Cystitis: (2) Pseudomonas urinary tract infection: (3) Metabolic encephalopathy: (4) Parkinsons disease: (5) Sleep-wake cycle disorder: (6) Acute delirium: (7) COPD (chronic obstructive pulmonary disease): (8) Muscle wasting: (9) Cachexia: (10) Severe protein-calorie malnutrition: (11) Hypercalcemia: Plan Assessment: Acute bacterial cystitis, without hematuria. Pseudomonas urinary tract infection. Acute metabolic encephalopathy. Sleep-wake cycle derangement. Exacerbation of encephalopathy in a patient with Parkinson's disease. COPD which is stable and not exacerbated. Possibility of aspiration pneumonia, based on a portable x-ray done in the emergency room. Muscle wasting, cachexia, and severe protein calorie malnutrition. Dehydration. Plan: Hospital admission, inpatient status. I continue IV antibiotics with cefepime. Awaiting results from urine culture, which was obtained on Sunday. Consult to physical therapy, Occupational Therapy, and speech therapy. Maximum efforts to restore normal sleep-wake cycle to environmental measures. Florastor to prevent against antibiotic associated diarrhea. Patient may require TeleSitter for safety and may require bedside sitter if she becomes with more extreme delirium. I continue the medications she takes at home. DVT prophylaxis with heparin 5000 units subcutaneously every 12 hours. Consult to dietitian given severe protein calorie malnutrition. The patient is dehydrated so we will provide 1 L of IV fluids. IP vs OBS Justification Based on differential dx, clinical care plan, and risk of adverse events, if untreated, in my clinical judgement this patient requires an acute care setting as: INPATIENT because of an expectation ofan over 2 midnight stay. Estimated length of stay (# of days): 3 Documented By: Connor Dumont DO [id number] Signed By: 03/02/[address] [facility]09-11-2025 History of Present illness Narrative * Daniela Jaramillo, MIRELLA - 02/19/2025 11:30 AM EDT Images from the original note were not included. Subjective Patient ID: Judith Land is a 80 y.o. female who presents for No chief complaint on file.. Judith presents today for a 3 month follow up for Parkinson's. Over the past 2 weeks, how often have you been bothered by any of the following problems? Little interest or pleasure in doing things: Several days Feeling down, depressed, or hopeless: Several days Patient Health Questionnaire-2 Score: 2 If you checked off any problems on this questionnaire so far, How difficult have these problems made it for you to do your work, take care of things at home, or get along with other people?: Somewhat difficult Current Outpatient Medications on File Prior to Visit Medication Sig Dispense Refill ALPRAZolam (Xanax) 1 MG tablet Take 1.5 [...] mg) by mouth Daily 100 capsule 3 hydrALAZINE (Apresoline) 25 MG tablet TAKE 1 TABLET BY MOUTH TWICE A DAY WITH FOOD FOR 30 DAYS ipratropium-albuterol (Duo-Neb) 0.5-2.5 mg/3 mL nebulizer solution Three times daily as needed for wheezing KLOR-CON 20 MEQ ER tablet Take 1 tablet by mouth in the morning and 1 tablet in the evening. Take with meals. Lutein-Zeaxanthin 25-5 MG capsule 1 capsule pantoprazole (ProtoNix) 40 MG EC tablet Take 40 mg by mouth in the morning. Take before meals. QUEtiapine (SEROquel) 25 MG tablet Take 1 tablet (25 mg) by mouth at bedtime 100 tablet 3 rasagiline (Azilect) 1 MG tablet TAKE 1 TABLET BY MOUTH EVERY DAY 90 tablet 1 rOPINIRole (Requip) 0.5 MG tablet Take 0.5 mg by mouth at bedtime sennosides ([employer] Senna) 8.6 MG tablet Take 2 tablets (17.2 mg) by mouth in the morning and 2 tablets(17.2 mg) before bedtime. 360 tablet 3 No current facility-administered medications on file prior to visit. I have reviewed and reconciled the history and medication list with the patient today. Allergies Allergen Reactions Trimethoprim Shortness of breath Ciprofloxacin Other Reaction(s): Unknown Sulfa Antibiotics Social History Tobacco Use Smoking status: Former Types: Cigarettes Start date: 08/2017 Quit date: 1968 Years since quittin.7 Smokeless tobacco: Never Vaping Use Vaping status: [...] Right 08/12/2024 DAP SPLENECTOMY, TOTAL Visit Vitals Smoking Status Former Review of Systems Constitutional: Negative. HENT: Negative. Eyes: Negative. Respiratory: Negative. Cardiovascular: Negative. Gastrointestinal: Positive for constipation. Genitourinary: Negative. Musculoskeletal: Positive for gait problem (unsteady but currently doing therapy). Skin: Negative. Psychiatric/Behavioral: Negative. Hematological: Negative. Endocrine: Negative. Allergic/Immunologic: Negative. Objective Physical Exam Vitals reviewed. Constitutional: Appearance: Normal appearance. HENT: Head: Normocephalic. Right Ear: External ear normal. Left Ear: External ear normal. Nose: Nose normal. Mouth/Throat: Pharynx: Oropharynx is clear. Eyes: Conjunctiva/sclera: Conjunctivae normal. Cardiovascular: Rate and Rhythm: Normal rate and regular rhythm. Heart sounds: Normal heart sounds. Pulmonary: Effort: Pulmonary effort is normal. Breath sounds: Normal breath sounds. Abdominal: Palpations: Abdomen is soft. Musculoskeletal: General: Normal range of motion. Cervical back: Normal range of motion and neck supple. Skin: General: Skin is warm and dry. Neurological: General: No focal deficit present. Mental Status: She is alert and oriented to person, place, and time. Psychiatric: Mood and Affect: Mood normal. Behavior: Behavior normal. Thought Content: Thought content normal. Judgment: Judgment normal. Assessment/Plan 1. Parkinson's disease without dyskinesia or fluctuating manifestations (HCC) (Primary) She presents today with her daughter. She reports that she has been stable. She continues carbidopa-levodopa CR as ordered. No changes at this time. 2. Constipation, unspecified constipation type She reports that she has been having more constipation daily. She has been taking miralax daily andsenna bid. We will add colace TID as needed. - docusate sodium (Colace) 100 MG capsule; Take 1 capsule (100 mg) by mouth 3 (three) times a day as needed for constipation Dispense: 90 capsule; Refill: 2 3. Stage 3b chronic kidney disease ([facility]) 12/11/24 BUN 7 - 25 mg/dL 24 21 22 20 R Creatinine 0.60 - 1.00 mg/dL 1.34 High 0.93 R 0.96 R 0.95 R EGFR > OR = 60 mL/min/1.73m2 41 Low 4. Primary hypertension Bp has been stable, bp 120/62 today. She continues Hydralazine as ordered. 5. Bilateral lower extremity edema She states she has been having difficulty putting the compression hose on in the morning. She is advised to try the compression socks that have zippers to be able to put them on more easily. She was also started on furosemide, 20mg daily per Cardiology. 6. Chronic diastolic congestive heart failure (HCC) Followed per cardiology, continues lasix as ordered.She reports that she will be getting labs per cardiology. No follow-ups on file. documented in this [facility]09-11-2025 Instructions* Patient Instructions* Daniela Jaramillo NP - 02/19/2025 11:30 AM EDT Add colace today. documented in this [facility]08-26-2025 Telephone encounter Note* Telephone Encounter - BECCA Man - 02/03/2025 2:29 PM EDT OARRS reviewed, Rx sent into patient's pharmacy. [id number] Miscellaneous Notes* Telephone Encounter - BECCA Man - 02/03/2025 2:29 PM EDT OARRS reviewed, Rx sent into patient's pharmacy. * Telephone Encounter - Mirian Joseph - 02/03/2025 1:53 PM EDT Judith's daughter called. She stated her mom needed her ALPRAZolam (Xanax) 1 MG sent in to [facility] in [place]. She is out and uses that to help her sleep. documented in this encounterSaint [facility] [id number] Telephone encounter Note* Telephone Encounter - Mirian Joseph - 02/03/2025 1:53 PM EDT Judith's daughter called. She stated her mom needed her ALPRAZolam (Xanax) 1 MG sent in to [facility] in [place]. She is out and uses that to help her sleep. [facility] [id number] NoteSUBJECTIVE Reason for Visit: Judith Land is a [...] Rate 09/18/2023 111 Atrial Rate 09/18/2023 111 RI Interval 09/18/2023 184 QRS DURATION 09/18/2023 88 QT Interval 09/18/2023 316 QTC CALCULATION(BAZETT) 09/18/2023 429 P Bagley 09/18/2023 (more content not included)...[facility]07-21-2025 Instructions* Patient Instructions* Cherie Cedeno PA-C - 12/29/2024 9:46 AM [...] by mouth in the evening as needed forconstipation. - Miralax: increase to 1 capfuls mixed in your morning coffee; adjust by a quarter-cap as needed toachieve soft, regular bowel movements. - Nutrition support: continue regular meals and add Oakley Instant Breakfast (or similar) daily to help [...] Return at or around: 03/31/25 Your current [facility] Movement Disorders Team includes: Primary Movement Disorders Neurologist: David Valente MD Primary Movement Disorders Advanced Practice Provider: Cherie Cedeno PA-C If there are any concerns before your next visit, please call or you can send a message through NOWBOX. You can also now schedule and select appointments through NOWBOX. Cherie Cedeno PA-C [facility] History of Present illness Narrative* Cherie Cedeno PA-C - 12/29/2024 9:00 AM EDT [facility] - FOLLOW UP [...] Parkinson's Disease Exercise Class at your local [facility] Voice - The Parkinson Voice Project makes daily videos with voice exercises to help keep your voiceloud and clear. This is free on Youtube Handwriting - take a look at Fat Pens for tremor. This often will help people write easier I would like to see you back in about 7 months, before next winter. If you need assistance with scheduling, please call [phone], option 2 to speak with one of [...] due to emerging speech and cognitive difficulties. Shedoes not endorse dysphagia. Her current medication regimen includes Sinemet CR at breakfast (7-8 AM), lunch (12 PM), and dinner(5 PM), amantadine three times daily, rasagiline in [...] 17 g by mouth once daily. Dissolve dosein 4 - 8 ounces of liquid and [...] Parkinson's Disease since 2014. She presents [facility] for care after many years [...] falling. Home physical therapy and occupational therapy willbe critical to helping her regain strength. Discussed that this is something that medication cannotfix. The following are the current problems noted [...] Sincerely, Cherie Cedeno PA-C documented in this encounterSelect [facility]25 NoteHNO ID: [id number] Author: CHERIE CEDENO PA-C Service: ? Author Type: Physician C.O.D. Audit Clerk Type: Progress Notes Filed: 12/29/2024 10:02 Note [...] Parkinson's Disease Exercise Class at your local [facility] Voice - The Parkinson Voice Project makes daily videos with voice exercises to help keep your voice loud and clear. This is free on [employer] Handwriting - take a look at Fat Pens for tremor. This often will help people write easier I would like to see you back in about 7 months, before next winter. If you need assistance with scheduling, please call [phone], option 2 to speak with one of [...] tablet by mo (more content not included)... [facility]07-17-2025 History of Present illness Narrative* BECCA Man - 12/25/2024 10:00 AM EDT Images from the original note [...] is eating all and every meal. Drinks waterall day and apple juice. Doesn't have a lot of energy. HH is going to start PT and OT Pt does have an appt with neurologist Sunday at [facility] Her ankles and feet are swelling [...] refused. [facility] was a doctor [facility]. Does follow Dr. Viera at [facility]. Pt refuses stress test that was recommended due to awful experience with the last one, her heart rate went very high and they couldn't get it back down. Does have h/o A fib. [facility] [...] Types: Cigarettes Start date: 08/2017 Quit date: 1968 Years since quittin.5 Smokeless tobacco: Never Vaping [...] every meal. Stage 3b chronic kidney disease ([facility]) Advised of caution regarding diuretic use in kidney disease. She no longer follows with nephrology.Encouraged pt to stay hydrated. Parkinson's disease, unspecified whether dyskinesia present, unspecified whether manifestations fluctuate (HCC) The patient is seeing a medical information specialist for this condition, treatment is deferred to that specialist. Correspondence from that specialist and any available testing were reviewed during today's visit. Primary hypertension Encouraged patient to schedule an appointment with Dr. Viera for follow up s/p recent ER visit.Her BP is much improved today. Continue Hydralazine and Diltiazem as prescribed. Hemiplegia, unspecified affecting right dominant side ([facility]) Pt with abnormal gait, walks with assistance. [...] the patient. ER discharge meds were reviewed. Anychanges to plan are as noted. Follow up for Appointment As Scheduled. documented in this encounterNOSt. Louis VA Medical [id number] Telephone encounter Note* Telephone Encounter - Shanae Burt - 12/24/2024 4:27 PM EDT Pt resumtion of care has been completed in home and they will be caring for her for about a month and then go from there on the following steps. [facility] [id number] Miscellaneous Notes* Telephone Encounter - Shanae Butr - 12/24/2024 4:27 PM EDT Pt resumtion of care has been completed in home and they will be caring for her for about a month and then go from there on the following steps. documented in this encounterSaint [facility] [id number] Hospital Discharge instructionsAmbulatory Orders* Initiate Home Health Time Frame: 12/17/24, Location: Determined By Patient Additional Instructions HOME HEALTH TO MANAGE: Nursing/PT/OT/Aide and pantry goods worker to eval and treat Monitor VS per protocol--HTN Monitor Neuro. assessment--Encephalopathy, Parkinson disease Monitor Cardiac assessment--Elevated troponin Dressing change every 3 days--Mepilex border foam to Coccyx for added protection Assist with medication management and provide medication education Provide education on high risk fall [facility] Work Phone: 1(732) 634-481807-07-2025 Evaluation note* Diagnosis Onset Date Resolution Status Admit Date Acute confusion resolvedJuly 2024 1:57pmAcute kidney failureresolvedJuly 2024 1:57pm DeliriumresolvedJuly 2024 1:57pmElevated troponin level not due to acute coronary syndromeresolvedJuly 2024 1:57pmHypertensive emergencyresolvedJuly 2024 1:57pmVisual hallucinationsresolvedJuly 2024 1:57pmParkinson diseaseinactiveJuly 2024 1:57pmMetabolic encephalopathyacuteAugust 2024 9:50amParkinsons diseaseacuteAugust 2024 9:50am [facility] Work Phone: 1(284) 491-678107-07-2025 Evaluation note* Diagnosis Onset Date Resolution Status Admit Date Acute confusion resolvedJuly 2024 1:57pmAcute kidney failureresolvedJuly 2024 1:57pm DeliriumresolvedJuly 2024 1:57pmElevated troponin level not due to acute coronary syndromeresolvedJuly 2024 1:57pmHypertensive emergencyresolvedJuly 2024 1:57pmVisual hallucinationsresolvedJuly 2024 1:57pmParkinson diseaseinactiveJuly 2024 1:57pmMetabolic encephalopathyacuteAugust 2024 9:50amParkinsons diseaseacuteAugust 2024 9:50amAcute UTIacute February 27, 2025 12:49pm [facility] Work Phone: 1(805) 661-979607-07-2025 Evaluation note* Diagnosis Onset Date Resolution Status Admit Date Acute confusion resolvedJuly 2024 1:57pmAcute kidney failureresolvedJuly 2024 1:57pm DeliriumresolvedJuly 2024 1:57pmElevated troponin level not due to acute coronary syndromeresolvedJuly 2024 1:57pmHypertensive emergencyresolvedJuly 2024 1:57pmVisual hallucinationsresolvedJuly 2024 1:57pmParkinson diseaseinactiveJuly 2024 1:57pmMetabolic encephalopathyacuteAugust 2024 9:50amParkinsons diseaseacuteAugust 2024 9:50amAcute UTIacute February 27, 2025 12:49pmAcute deliriumacuteSeptember 2024 4:01am CachexiaacuteSeptember 2024 4:01amCOPD (chronic obstructive pulmonary disease)acuteSeptember 2024 4:01amCystitisacuteSeptember 2024 4:01am HypercalcemiaacuteSeptember 2024 4:01amMetabolic encephalopathyacute March 02, 2025 4:01amMuscle wastingacuteSeptember 2024 4:01am Parkinsons diseaseacuteSeptember 2024 4:01amPneumoniaacuteSeptember 2024 4:01amPseudomonas urinary tract infectionacuteSeptember 2024 4:01am Severe protein-calorie malnutritionacuteSeptember 2024 4:01amSleep-wake cycle disorderacuteSeptember 2024 4:01am [facility] Work Phone: 1(351) 440-602507-07-2025 Radiology [facility] [place] [address] [place], [place] [id number] CT Scan Report Signed Patient: Judith Land MR#: [id number] : 1945 Acct:[id number] Age/Sex: 79 / F ADM Date: 5 Loc: ER Room: Type: [place] [facility] Attending Dr: Copies to: Jen Downing [...] white matter is most consistent withchronic small vesseldisease. HEMORRHAGE: None HERNIATION: No mass effect or herniation INFARCTION: No recent vascular distribution infarction is seen. EXTRA-AXIAL FLUID COLLECTIONS None MIDBRAIN: Unremarkable MADDY: Unremarkable MEDULLA: Unremarkable SINUSES: Unremarkable ORBITS: Grossly unremarkable MASTOIDS: Unremarkable BONY STRUCTURES Intact ADDITIONAL FINDINGS: CT/CT head/brain wo con IMPRESSION: No acute findings. Impression dictated by: Andrew Henson M.D. 12/15/2024 1:03 PM Dictation Location: [place] [address] Transcribed By: [facility] 12/15/24 1303 Dictated By: Andrew Henson DO 12/15/24 1302 Signed By: 12/15/[address] [facility]07-06-2025 Radiology Diagnostic study note [facility] [place] [address] CT Scan Report Signed Patient: Judith Land MR#: [id number] : 1945 Acct:[id number] Age/Sex: 79 / F ADM Date: Loc: ER Room: Type: [place] [facility] Attending Dr: Copies to: Damaso Charlton DO~ Ordering Provider: Damaso Charlton DO Date of Service: 12/14/24 CT/CT cervical spine wo con: head inj ([id number]) CT/CT head/brain wo con: head inj Unenhanced [...] white matter is most consistent withchronic small vesseldisease. HEMORRHAGE: None HERNIATION: No mass effect or [...] Henson M.D. 12/14/2024 9:47 AM Dictation Location: [place] [address] Transcribed By: [facility] 12/14/[address] Dictated By: Andrew Henson DO 12/14/24 0942 Signed By: 12/14/[address] [facility]06-19-2025 Telephone encounter Note* Telephone Encounter - Shanae Burt - 11/27/2024 9:40 AM EDT Patient was told to call back with some information they were unsure about at their appt yesterday. The medication Hydralazine she takes 50 mg 2x a day The medication cardizem is 180mg 1x a day. The lisinopril she is no longer taking and needs that off of her medication list. She will need a refill on the hydralazine, cardizem, and alprazalam sent to [facility] [place]. [facility] [id number] Miscellaneous Notes* Telephone Encounter - Shanae Burt - 11/27/2024 9:40 AM EDT Patient was told to call back with some information they were unsure about at their appt yesterday. The medication Hydralazine she takes 50 mg 2x a day The medication cardizem is 180mg 1x a day. The lisinopril she is no longer taking and needs that off of her medication list. She will need a refill on the hydralazine, cardizem, and alprazalam sent to [facility] [place]. documented in this encounterSaint [facility]'s Hospital [facility] [id number] History of Present illness Narrative* Daniela Jaramillo NP - 11/26/2024 3:00 PM EDT Images from the original note were not included. Subjective Patient ID: Judith Land is a 79 y.o. female who presents for a follow up. Judith presents today for a follow up visit after being released from [facility].She has been home a week and hasn't had a bowel movement. She is taken a stool softener that hasn't helped. Over the past 2 weeks, how often have you been bothered by any of the following problems? Little interest or pleasure in doing things: Several days Feeling down, depressed, or hopeless: Not at all Patient Health Questionnaire-2 Score: 1 If you checked off any problems on this questionnaire so far, How difficult have these problems made it for you to do your work, take care of things at home, or get along with other people?: Somewhat difficult Current Outpatient Medications on File Prior to Visit Medication Sig Dispense Refill ALPRAZolam (Xanax) 1 MG tablet Take 1 mg by mouth at bedtime 1.5 tab amantadine (Symmetrel) 100 MG tablet Take 100 mg by mouth in the morning and 100 mg before bedtime. amLODIPine (Norvasc) 5 MG tablet TAKE 1 TABLET BY MOUTH ONCE A DAY DIRECTED aspirin 81 MG EC tablet Take 81 mg by mouth Daily Calcium Carbonate-Vit D-Min (Calcium 600+D Plus Minerals) 600-400 MG-UNIT tablet 1 (one) time each day at the same time carbidopa-levodopa CR (Sinemet CR) 25-100 MG ER tablet TAKE 1 TABLET BY MOUTH 3 TIMES A DAY (7AM, 12PM AND 5PM) [facility] Acetaminophen Ex St 500 MG tablet Take 500 mg by mouth every 6 (six) hours if needed cyclobenzaprine (Flexeril) 10 MG tablet Take 10 mg by mouth 2 (two) times a day as needed gabapentin (Neurontin) 300 MG capsule Take 300 mg by mouth in the morning and 300 mg in the eveningand 300 mg before bedtime. hydrALAZINE (Apresoline) 50 MG tablet TAKE 1 TABLET BY MOUTH TWICE A DAY WITH FOOD FOR 30 DAYS hydroCHLOROthiazide (HYDRODiuril) 25 MG tablet Take 25 mg by mouth in the morning. KLOR-CON 20 MEQ ER tablet Take 1 tablet by mouth in the morning and 1 tablet in the evening. Take with meals. lisinopril 40 MG tablet Take 40 mg by mouth in the morning. Lutein-Zeaxanthin 25-5 MG capsule 1 capsule metoprolol tartrate (Lopressor) 100 MG tablet Take 100 mg by mouth in the morning and 100 mg beforebedtime. Misc. Devices (Platform Walker Attachment) misc 1 Device Daily Patient requires RIGHT Platform for FWW d/t R wrist Fx 1 each 0 omeprazole (PriLOSEC) [address] capsule Take 20 mg by mouth in the morning. Take before meals. oxyCODONE-acetaminophen (Percocet) 5-325 MG tablet pantoprazole (ProtoNix) 40 MG EC tablet Take 40 mg by mouth in the morning. Take before meals. phenazopyridine (Pyridium) 200 MG tablet Take 200 mg by mouth in the morning and 200 mg at noon [id number] mg in the evening. Take with meals. potassium chloride CR (Klor-Con) 10 MEQ ER tablet Take 20 mEq by mouth in the morning and 20 mEq before bedtime. pravastatin (Pravachol) 20 MG tablet Take 20 mg by mouth Daily rasagiline (Azilect) 1 MG tablet TAKE 1 TABLET BY MOUTH EVERY DAY 90 tablet 1 rOPINIRole (Requip) 0.5 MG tablet Take 0.5 mg by mouth at bedtime Sinemet 25-100 MG tablet Take 1 tablet by mouth in the morning and 1 tablet in the evening and 1 tablet before bedtime. spironolactone (Aldactone) 50 MG tablet TAKE 1 TABLET BY MOUTH EVERY DAY FOR 3 DAYS sucralfate (Carafate) 1 g tablet TAKE 1 TABLET BY MOUTH 4 TIMES A DAY ON AN EMPTY STOMACH FOR 7 DAYS UNABLE TO FIND HANDICAP PLACARD zinc gluconate 50 MG tablet Daily No current facility-administered medications on file prior to visit. I have reviewed and reconciled the history and medication list with the patient today. 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 HENT: Negative. Eyes: Negative. Respiratory: Negative. Cardiovascular: Negative. Gastrointestinal: Negative. Genitourinary: Negative. Musculoskeletal: Negative. Skin: Negative. Neurological: Negative. Psychiatric/Behavioral: Negative. Hematological: Negative. Endocrine: Negative. Allergic/Immunologic: Negative. Objective Physical Exam Vitals reviewed. Constitutional: Appearance: Normal appearance. HENT: Head: Normocephalic. Right Ear: External ear normal. Left Ear: External ear normal. Nose: Nose normal. Mouth/Throat: Mouth: Mucous membranes are moist. Pharynx: Oropharynx is clear. Eyes: Conjunctiva/sclera: Conjunctivae normal. Cardiovascular: Rate and Rhythm: Normal rate and regular rhythm. Heart sounds: Normal heart sounds. Pulmonary: Effort: Pulmonary effort is normal. Breath sounds: Normal breath sounds. Abdominal: Palpations: Abdomen is soft. Musculoskeletal: General: Normal range of motion. Cervical back: Normal range of motion. Skin: General: Skin is warm and dry. Neurological: General: No focal deficit present. Mental Status: She is alert and oriented to person, place, and time. Psychiatric: Mood and Affect: Mood normal. Behavior: Behavior normal. Thought Content: Thought content normal. Judgment: Judgment normal. Assessment/Plan 1. Stage 2 chronic kidney disease Repeat labs ordered today. - Comprehensive metabolic panel; Future - CBC; Future - Comprehensive metabolic panel - CBC 2. Parkinson's disease without dyskinesia or fluctuating manifestations (HCC) (Primary) Amantadine (Symmetrel) , carbidopa-levodopa CR (Sinemet CR) continue as ordered. No changes. 3. Primary insomnia Seroquel at HS continues. Nochanges. 4. Neuropathy Stable 5. Chronic obstructive pulmonary disease with acute lower respiratory infection (HCC) Duoneb continues as ordered. Stable. 6. Chronic diastolic congestive heart failure (HCC) Cardizem CD continues. Stable. 7. Primary hypertension Hydralazine continues as ordered. Stable. 8. Constipation, unspecified constipation type Senna and colace continue. She is advised to increase the colace to twice daily 9. Hypokalemia KLOR-CON 20 MEQ ER tablet continues. Labs to repeat. 10. Stage 3b chronic kidney disease (CMS-HCC) CMP ordered. 11. RLS (restless legs syndrome) ROPINIRole (Requip) 0.5 MG tablet continue as ordered. Stable. 12. Gastroesophageal reflux disease without esophagitis pantoprazole (ProtoNix) 40 MG continues as ordered. Stable. 13. Generalized anxiety disorder Alprazolam continues as ordered. Stable. No follow-ups on file. documented in this [facility]06-18-2025 Instructions* Patient Instructions* Daniela Jaramillo NP - 11/26/2024 3:00 PM EDT Continue all medication as ordered, no changes today. documented in this [facility]05-20-2025 Evaluation note* Diagnosis Onset Date Resolution Status Admit Date Acute delirium acuteMay 2024 2:46pmAcute hypoxic respiratory failureacuteMay 2024 2:46pmAcute kidney failureacuteMay 2024 2:46pmAspiration pneumoniaacuteMay 2024 2:46pmCachexiaacuteMay 2024 2:46pmCOPD (chronic obstructive pulmonary disease)acuteMay 2024 2:46pmEncephalopathyacuteMay 2024 2:46pmHypernatremiaacuteMay 2024 2:46pmMetabolic encephalopathyacuteMay 2024 2:46pmMuscle wastingacuteMay 2024 2:46pmSleep-wake cycle disorderacuteMay 2024 2:46pm [facility] Work Phone: 1(671) 144-220405-20-2025 Evaluation note* Diagnosis Onset Date Resolution Status Admit Date Acute delirium acuteMay 2024 2:46pmAcute hypoxic respiratory failureacuteMay 2024 2:46pmAcute kidney failureacuteMay 2024 2:46pmAspiration pneumoniaacuteMay 2024 2:46pmCachexiaacuteMay 2024 2:46pmCOPD (chronic obstructive pulmonary disease)acuteMay 2024 2:46pmEncephalopathyacuteMay 2024 2:46pmHypernatremiaacuteMay 2024 2:46pmMetabolic encephalopathyacuteMay 2024 2:46pmMuscle wastingacuteMay 2024 2:46pmSleep-wake cycle disorderacutey 2024 2:46pmAcute confusionacuteJuly 2024 1:57pm Hypertensive emergencyacuteJuly 2024 1:57pm [facility] Work Phone: 1(148) 496-695105-20-2025 Evaluation note* Diagnosis Onset Date Resolution Status Admit Date Acute delirium acuteMay 2024 2:46pmAcute hypoxic respiratory failureacuteMay 2024 2:46pmAcute kidney failureacuteMay 2024 2:46pmAspiration pneumoniaacuteMay 2024 2:46pmCachexiaacuteMay 2024 2:46pmCOPD (chronic obstructive pulmonary disease)acuteMay 2024 2:46pmEncephalopathyacuteMay 2024 2:46pmHypernatremiaacuteMay 2024 2:46pmMetabolic encephalopathyacuteMay 2024 2:46pmMuscle wastingacuteMay 2024 2:46pmSleep-wake cycle disorderacuteMay 2024 2:46pmAcute confusionacuteJuly 2024 1:57pmAcute kidney failureacuteJuly 2024 1:57pmDeliriumacuteJuly 2024 1:57pm Elevated troponin level not due to acute coronary syndromeacuteJuly 2024 1:57pmHypertensive emergencyacuteJuly 2024 1:57pmParkinson diseaseacuteJuly 2024 1:57pmVisual hallucinationsacuteJuly 2024 1:57pm [facility] Work Phone: 1(974) 502-728105-20-2025 Evaluation note* Diagnosis Onset Date Resolution Status Admit Date Acute delirium acuteMay 2024 2:46pmAcute hypoxic respiratory failureacuteMay 2024 2:46pmAspiration pneumoniaacuteMay 2024 2:46pmCachexiaacuteMay 2024 2:46pmCOPD (chronic obstructive pulmonary disease)acuteMay 2024 2:46pm EncephalopathyacuteMay 2024 2:46pmHypernatremiaacuteMay 2024 2:46pm Metabolic encephalopathyacuteMay 2024 2:46pmMuscle wastingacuteMay 2024 2:46pmSleep-wake cycle disorderacuteMay 2024 2:46pmAcute kidney failureresolvedMay 2024 2:46pmAcute confusionresolvedJuly 2024 1:57pm Acute kidney failureresolvedJuly 2024 1:57pmDeliriumresolvedJuly 2024 1:57pmElevated troponin level not due to acute coronary syndromeresolvedJuly 2024 1:57pmHypertensive emergencyresolvedJuly 2024 1:57pmVisual hallucinationsresolvedJuly 2024 1:57pmParkinson diseaseinactiveJuly 2024 1:57pmMetabolic encephalopathyacuteAugust 2024 9:50amParkinsons diseaseacuteAugust 2024 9:50am [facility] Work Phone: 1(563) 108-667004-23-2025 History of Present illness Narrative* Daniela David - 10/01/2024 9:45 AM EDT Images from [...] Not at risk (11/27/2023) Received from [facility] PHQ-2 Patient Health Questionnaire-2 Score: 0 REVIEW [...] 10/06/2024 7:10 AM EDT documented in this encounterSaint Mary's Hospital [facility] [id number] Telephone encounter Note* Telephone Encounter - Kimmy Jaramillo RN - 09/24/2024 12:38 PM EDT ORIF R wrist 08/12/24,Fx pubic rami 09/02/24, JIMI 09/10/24 Patricia Vega. Would like refill pain Percocet, only has a couple left. She is using them at night, and the pain in her pelvis is bothering her to the point where I do not know that the Tylenol andIbuprofen Are really touching that pain. [facility] [id number] Miscellaneous Notes* Telephone Encounter - Kimmy Jaramillo [...] really touching that pain. documented in this encounterSaint Mary's Hospital of Blue [id number] History of Present illness Narrative* Shaun Philip, MIRELLA - 09/17/2024 4:00 PM EDT Images from [...] are better than others. She follows with [facility] neurology in addition to our office. The [...] Daughter states the patient was hospitalized at [facility] in August 2024 for urinary tract [...] Diagnosis Date COPD (chronic obstructive pulmonary disease) ([facility]) H/O splenectomy Hypertension ([facility]) Parkinson disease ([facility]) Recurrent UTI Ruptured spleen Past Surgical History: [...] wrist extensors , wrist flexor , and preparation room worker strength 5/5. LUE strength deltoid , biceps , triceps , wrist extensors , wrist flexor , and preparation room worker strength 5/5. RLE strength iliopsoas, quadriceps, tibialis [...] reflex 2+. LLE knee reflex 2+. Coordination: Crhcdx-wc-kuqy testing normal. Rapid alternating movements minimal bradykinesia [...] the brain with and without contrast [place] [facility] [place]: No acute intracranial abnormality. No [...] the brain with and without contrast [place] [facility]15[place]: no acute intracranial pathology or [...] whether dyskinesia present, unspecified whether manifestations fluctuate ([facility]) Ms. Land is a 79-year-old female with [...] increase in amantadine. She is following with [facility] neurology in addition to our office to help manage her Parkinson's. PLAN: - Follow up closely with [facility] neurology to assist with management of Parkinson's disease (the patient prefers to follow in our office locally and at [facility]) - Continue Sinemet 25-100 mg CR tablet [...] on the right including pain and decreased preparation room worker strength. She admits to previous use of [...] worsening symptoms. THE PATIENT REPORTS FOLLOWING WITH [facility] NEUROLOGY MORE FREQUENTLY (NEXT IN JANUARY 2025) AND STATES SHE WILL CHECKIN WITH OUR OFFICE LOCALLY IN 1 YEAR. Shaun Jackson NP [facility] documented in this encounterSaint Mary's Hospital of Blue [id number] History of Present illness Narrative* Jen Doyle [...] Not at risk (11/27/2023) Received from [facility] PHQ-2 Patient Health Questionnaire-2 Score: 0 REVIEW [...] has had multiple falls. This would allow buddhist of ambulation in a safe manner while protecting the wrist fracture and open reduction and internal fixation. The length of time needed for this would likely be approximately a three month course overall. Zeinas voice understanding of this. We will see [...] will be in the medical record through [employer] for thepatient's multiple family members to view at their discretion with the patient's consent. All questions are again answered. Follow up letter sent to Dr. Sams. Cosigned by Supa Owen DO at 09/12/2024 12:33 PM EDT documented in this encounterSaint Mary's Hospital of Blue [id number] Discharge summary Author Didi Navarro [facility] HospitalNote Date/TimeMarch 2024 1:01pm[place] [address] Discharge Summary Signed Patient: Judith Land MR#: [id number] : 1945 Acct:[id number] Age/Sex: 79 / F Adm Date: 5 Loc: Room: [address] [place] [address]: Pa Neil MD Copies to: [...] mobility. Patient will be discharged home with [facility] health services. No additional DME is needed [...] Pa Neil Follow Up: [facility] [place] [Outside] (Call to schedule follow up appointment [...] Continuity of Care Document Health Concerns: A [facility] screening has identified you as FRAIL or [...] Stay Strong:Four Ways to Beat the Frailty Riskhttps://[email or web address]-wts-hvdhsrxymk/sta k-ftumks-oroq-dyrh-qe-dlnz-the -frailty-risk Exam Physical Exam Vital Signs: Temp [...] signed by Ramsey Monroe MD> 09/05/24 1301 [facility] Work Phone: 1(779) 804-722903-28-[address] [address] Discharge Summary Signed Patient: Judith Land MR#: [id number] : 1945 Acct:[id number] Age/Sex: 79 / F Adm Date: 5 Loc: Room: 3S4602-[address]: Pa Neil MD Copies to: [...] to Orthopedic Surgery Routine Comment: Consulting Provider: [facility] Reason For Exam: L inferior and [...] mobility. Patient will be discharged home with [facility] home health services. No additional DME [...] Continuity of Care Document Health Concerns: A [facility] screening has identified you as FRAIL or [...] Stay Strong:Four Ways to Beat the Frailty Riskhttps://[email or web address]/eyiutfjh-bua-oihfjbpevp/sta s-nbcxua-kgks-ihwz-bg-bown-the -frailty-risk Exam Physical Exam Vital Signs: Temp [...] 245 Signed By: 09/05/24 1253 09/05/[address] [facility]03-28-2025 Progress note Author Pa Neil [facility] HospitalNote Date/TimeMarch 2024 10:11[place] [address] Physiatry(Rehab) Progress Note Signed Patient: Judith Land MR#: [id number] : 1945 Acct:[id number] Age/Sex: 79 / F Adm Date: 5 Loc: 5T Room: 1C2397-6 Type: ADM IN Attending Dr: Pa Neil [...] 06:55 09/05/24 06:55 09/04/24 14:58 09/05/24 06:55 03/28/25 06:55 Narrative: NAD. Sitting up in chair. [...] mg 08/25/24 15:48 Bisacodyl 10 Mg Supp.Rect RI 08/25/25 15:47 DAILY PRN Constipation Carbidopa/Levodopa 1 tab 09/01/24 12:00 09/05/24 06:44 Carbidopa/Levodopa 10-100 Mg 1 Tab Tablet PO 09/01/25 11:59 1 tab TID@0700,1200,1700 LLOYD Administration Docusate Sodium 100 mg 08/25/24 15:48 09/03/24 21:30 Docusate 100 Mg Capsule PO 08/25/25 15:47 100 mg BID PRN Administration Constipation Docusate Sodium 283 mg 08/25/24 15:48 Docusate Enema 283 Mg/5 Ml Enema RI 08/25/25 15:47 DAILY PRN Constipation Heparin Sodium [...] is a 79-year-old female who presents to [facility] IRF due to multifactorial functional decline in the setting of acute UTI with metabolic encephalopathy in the setting ofParkinsons Disease. She has continued impaired mobility and impaired independence with ADLs and IADLs requiring PT/OT/SALES RELATIONSHIP MANAGER 5-7 days/week 3 hours/day to maximize safety [...] equipment to enhance the patient's a functional buddhist -Encourage deep breathing exercises and incentive spirometry [...] Discharge planning: RAMAOS 1-2 weeks I spent 27 minutes for services, including ymar-fp-yhup encounter with the patient, discussion of the case, plan of care, and exam; and wfmcvxt-pk-iwtr activities, such as reviewing pertinent oracle ebs consultant documentation, recent therapynotes, laboratory and radiology studies, and discussion of case with care team including physician, nursing, hospice case manager, and therapists. More than 50 % of time was spent on patient/family counseling or coordination ofcare. Documented By: Pa Neil MD 1009 Signed By: <Electronically signed by Pa Neil MD> 09/05/24 1011 [facility] Work Phone: 1(674) 907-878603-28-2025 Progress note Author Didi Navarro [facility] HospitalNote Date/TimeMarch 2024 10:09[place] [address] Physiatry(Rehab) Progress Note Signed Patient: Judith Land MR#: [id number] : 1945 Acct:[id number] Age/Sex: 79 / F Adm Date: 5 Loc: Room: [address] [place] [address] Type: ADM IN Attending Dr: Pa Neil [...] mg 08/25/24 15:48 Bisacodyl 10 Mg Supp.Rect RI 08/25/25 15:47 DAILY PRN Constipation Carbidopa/Levodopa 1 tab 09/01/24 12:00 09/03/24 06:22 Carbidopa/Levodopa 10-100 Mg 1 Tab Tablet PO 09/01/25 11:59 1 tab TID@0700,1200,1700 LLOYD Administration Docusate Sodium 100 mg 08/25/24 15:48 09/03/24 06:22 Docusate 100 Mg Capsule PO 08/25/25 15:47 100 mg BID PRN Administration Constipation Docusate Sodium 283 mg 08/25/24 15:48 Docusate Enema 283 Mg/5 Ml Enema RI 08/25/25 15:47 DAILY PRN Constipation Heparin Sodium [...] mg DAILY LLOYD Administration Assessment/Plan <Didi Navarro, LOSS PREVENTION ANALYST - Last Filed: 09/03/24 12:38> Assessment/Plan (1) Parkinsons disease: Qualifiers: Dyskinesia presence: without dyskinesia Fluctuating manifestations: without fluctuating manifestations Qualified Code(s): G20.A1 - Parkinson's disease without dyskinesia, without mention of fluctuations (2) Metabolic encephalopathy: (3) Acute UTI: (4) HTN (hypertension): (5) Anxiety: (6) Impaired mobility and activities of daily living: Plan This is a 79-year-old female who presents to [facility] IRF due to multifactorial functional decline in the setting of acute UTI with metabolic encephalopathy in the setting ofParkinsons Disease. She has continued impaired mobility and impaired independence with ADLs and IADLs requiring PT/OT/SALES RELATIONSHIP MANAGER 5-7 days/week 3 hours/day to maximize safety [...] equipment to enhance the patient's a functional buddhist -Encourage deep breathing exercises and incentive spirometry [...] I spent 17 minutes for services, including frqk-iw-vsuq encounter with the patient, discussion of the case, plan of care, and exam; and bmqobks-wm-ugpk activities, such as reviewing pertinent oracle ebs consultant documentation, recent therapynotes, laboratory and radiology studies, and discussion of case with care team including physician, nursing, hospice case manager, and therapists. More than 50 % of time was spent on patient/family counseling or coordination ofcare. <Pa Neil MD - Last Filed: 09/05/24 10:09> Assessment/Plan (1) Parkinsons disease: (2) Metabolic encephalopathy: (3) Acute UTI: (4) HTN (hypertension): (5) Anxiety: (6) Impaired mobility and activities of daily living: Plan This is a 79-year-old female who presents to [facility] IRF due to multifactorial functional decline in the setting of acute UTI with metabolic encephalopathy in the setting ofParkinsons Disease. She has continued impaired mobility and impaired independence with ADLs and IADLs requiring PT/OT/SALES RELATIONSHIP MANAGER 5-7 days/week 3 hours/day to maximize safety [...] equipment to enhance the patient's a functional buddhist -Encourage deep breathing exercises and incentive spirometry [...] I spent 17 minutes for services, including sews-co-rcjb encounter with the patient, discussion of the case, plan of care, and exam; and fwayoqy-mg-xkpg activities, such as reviewing pertinent oracle ebs consultant documentation, recent therapynotes, laboratory and radiology studies, and discussion of case with care team including physician, nursing, hospice case manager, and therapists. More than 50 % of [...] <Electronically signed by Pa Neil MD> 09/05/24 1000 [facility] Work Phone: 1(376) 967-958603-28-[address] [address] Physiatry(Rehab) Progress Note Signed Patient: Judith Land MR#: [id number] : 1945 Acct:[id number] Age/Sex: 79 / F Adm Date: 5 Loc: Room: 1M4604-3 Type: ADM IN Attending Dr: Pa Neil [...] mg 08/25/24 15:48 Bisacodyl 10 Mg Supp.Rect RI 08/25/25 15:47 DAILY PRN Constipation Carbidopa/Levodopa 1 tab 09/01/24 12:00 09/05/24 06:44 Carbidopa/Levodopa 10-100 Mg 1 Tab Tablet PO 09/01/25 11:59 1 tab TID@0700,1200,1700 LLOYD Administration Docusate Sodium 100 mg 08/25/24 15:48 09/03/24 21:30 Docusate 100 Mg Capsule PO 08/25/25 15:47 100 mg BID PRN Administration Constipation Docusate Sodium 283 mg 08/25/24 15:48 Docusate Enema 283 Mg/5 Ml Enema RI 08/25/25 15:47 DAILY PRN Constipation Heparin Sodium [...] is a 79-year-old female who presents to [facility] IRF due to multifactorial functional decline in the setting of acute UTI with metabolic encephalopathy in the setting ofParkinsons Disease. She has continued impaired mobility and impaired independence with ADLs and IADLs requiring PT/OT/SALES RELATIONSHIP MANAGER 5-7 days/week 3 hours/day to maximize safety [...] equipment to enhance the patient's a functional buddhist -Encourage deep breathing exercises and incentive spirometry [...] I spent 27 minutes for services, including ohzr-gl-ikyc encounter with the patient, discussion of the case, plan of care, and exam; and uvfzaif-rt-agam activities, such as reviewing pertinent oracle ebs consultant documentation, recent therapynotes, laboratory and radiology studies, and discussion of case with care team including physician, nursing, hospice case manager, and therapists. More than 50 % of time was spent on patient/family counseling or coordination ofcare. Documented By: Pa Neil MD 1009 Signed By: 09/05/[address] [facility]03-28-2025 [place] [address] Physiatry(Rehab) Progress Note Signed Patient: Judith Land MR#: [id number] : 1945 Acct:[id number] Age/Sex: 79 / F Adm Date: 5 Loc: Room: 3J7725-3 Type: ADM IN Attending Dr: Pa Niel MD Copies to: ~ Date of Service: [...] mg 08/25/24 15:48 Bisacodyl 10 Mg Supp.Rect RI 08/25/25 15:47 DAILY PRN Constipation Carbidopa/Levodopa 1 tab 09/01/24 12:00 09/03/24 06:22 Carbidopa/Levodopa 10-100 Mg 1 Tab Tablet PO 09/01/25 11:59 1 tab TID@0700,1200,1700 LLOYD Administration Docusate Sodium 100 mg 08/25/24 15:48 09/03/24 06:22 Docusate 100 Mg Capsule PO 08/25/25 15:47 100 mg BID PRN Administration Constipation Docusate Sodium 283 mg 08/25/24 15:48 Docusate Enema 283 Mg/5 Ml Enema RI 08/25/25 15:47 DAILY PRN Constipation Heparin Sodium [...] is a 79-year-old female who presents to [facility] IRF due to multifactorial functional decline in the setting of acute UTI with metabolic encephalopathy in the setting ofParkinsons Disease. She has continued impaired mobility and impaired independence with ADLs and IADLs requiring PT/OT/SALES RELATIONSHIP MANAGER 5-7 days/week 3 hours/day to maximize safety [...] equipment to enhance the patient's a functional buddhist -Encourage deep breathing exercises and incentive spirometry [...] Discharge planning: RAMAOS 1-2 weeks I spent 17 minutes for services, including hmmc-kh-wlgc encounter with the patient, discussion of the case, plan of care, and exam; and vjnljbq-iv-klwx activities, such as reviewing pertinent oracle ebs consultant documentation, recent therapynotes, laboratory and radiology studies, and discussion of case with care team including physician, nursing, hospice case manager, and therapists. More than 50 % of time was spent on patient/family counseling or coordination ofcare. Assessment/Plan (1) Parkinsons disease: (2) Metabolic encephalopathy: (3) Acute UTI: (4) HTN (hypertension): (5) Anxiety: (6) Impaired mobility and activities of daily living: Plan This is a 79-year-old female who presents to [facility] IRF due to multifactorial functional decline in the setting of acute UTI with metabolic encephalopathy in the setting ofParkinsons Disease. She has continued impaired mobility and impaired independence with ADLs and IADLs requiring PT/OT/SALES RELATIONSHIP MANAGER 5-7 days/week 3 hours/day to maximize safety [...] equipment to enhance the patient's a functional buddhist -Encourage deep breathing exercises and incentive spirometry [...] I spent 17 minutes for services, including kttm-re-ylbq encounter with the patient, discussion of the case, plan of care, and exam; and dwqqqzx-kf-gjol activities, such as reviewing pertinent oracle ebs consultant documentation, recent therapynotes, laboratory and radiology studies, and discussion of case with care team including physician, nursing, hospice case manager, and therapists. More than 50 % of [...] 206 Signed By: 09/03/24 1238 09/05/[address] [facility]03-26-2025 Consult note Author Henrry Jon [facility]Note Date/TimeMarch 2024 11:59[place] [address] Orthopedic Consult Note Signed Patient: Judith Land MR#: [id number] : 1945 Acct:[id number] Age/Sex: 79 / F Adm Date: 5 Loc: Room: [address] [place] [address] Type: ADM IN Attending Dr: Pa Neil [...] fracture for which she underwent fixation in [place]. Review of Systems Review of Systems All other systems reviewed & are negative unless noted below or in HPI [facility] Medical History RLS (restless legs syndrome) CAD [...] % (Auto) 65.3, Lymph % (Auto) 15.8, Nye % (Auto) 17.1, Eos % (Auto) 1.1, Baso % (Auto) 0.7, Nucleat RBC Rel Count 0.2, Neut # (Auto) 5.7, Lymph # (Auto) 1.4, Nye # (Auto) 1.5 H, Eos # (Auto) [...] <Electronically signed by MD Henrry Jon> 09/03/24 1755 [facility] Work Phone: 1(100) 391-235103-26-2025 Consult [place] [id number] Orthopedic Consult Note Signed Patient: Judith Land MR#: [id number] : 1945 Acct:[id number] Age/Sex: 79 / F Adm Date: 5 Loc: Room: [address] [place] [address] Type: ADM IN Attending Dr: Pa Neil [...] fracture for which she underwent fixation in [place]. Review of Systems Review of Systems All other systems reviewed & are negative unless noted below or in HPI [facility] Medical History RLS (restless legs syndrome) CAD [...] % (Auto) 65.3, Lymph % (Auto) 15.8, Nye % (Auto) 17.1, Eos % (Auto) 1.1, Baso % (Auto) 0.7, Nucleat RBC Rel Count 0.2, Neut # (Auto) 5.7, Lymph # (Auto) 1.4, Nye # (Auto) 1.5 H, Eos # (Auto) [...] MD 09/03/24 1147 Signed By: 09/03/[address] [facility]03-26-2025 Progress note Author Pa Neil [facility] Date/TimeMarch 2024 10:14[place] [address] Physiatry(Rehab) Progress Note Signed Patient: Judith Land MR#: [id number] : 1945 Acct:[id number] Age/Sex: 79 / F Adm Date: 5 Loc: Room: [address] [place] [address] Type: ADM IN Attending Dr: Pa Neil [...] % (Auto) 65.3 Lymph % (Auto) 15.8 Nye % (Auto) 17.1 Eos % (Auto) 1.1 Baso % (Auto) 0.7 Nucleat RBC Rel Count 0.2 Neut # (Auto) 5.7 Lymph # (Auto) 1.4 Nye # (Auto) 1.5 H Eos # (Auto) [...] mg 08/25/24 15:48 Bisacodyl 10 Mg Supp.Rect RI 08/25/25 15:47 DAILY PRN Constipation Carbidopa/Levodopa 1 tab 09/01/24 12:00 09/02/24 17:51 Carbidopa/Levodopa 10-100 Mg 1 Tab Tablet PO 09/01/25 11:59 1 tab TID@0700,1200,1700 LLOYD Administration Docusate Sodium 100 mg 08/25/24 15:48 09/02/24 22:01 Docusate 100 Mg Capsule PO 08/25/25 15:47 100 mg BID PRN Administration Constipation Docusate Sodium 283 mg 08/25/24 15:48 Docusate Enema 283 Mg/5 Ml Enema RI 08/25/25 15:47 DAILY PRN Constipation Heparin Sodium [...] is a 79-year-old female who presents to [facility] IRF due to multifactorial functional decline in the setting of acute UTI with metabolic encephalopathy in the setting ofParkinsons Disease. She has continued impaired mobility and impaired independence with ADLs and IADLs requiring PT/OT/SALES RELATIONSHIP MANAGER 5-7 days/week 3 hours/day to maximize safety [...] equipment to enhance the patient's a functional buddhist -Encourage deep breathing exercises and incentive spirometry -RD evaluation -Ensure adequate nutrition and hydration -Discharge planning. #. UPDATES -Cognition seems to be improving -Discussed adequate hydration with the patient. Will recheck labs in AM -Continue current care. Will have another FI this week with hopeful DC home thischuck -VINNY SALMERON per patients orthopedic surgeon -Completed [...] I spent 25 minutes for services, including vfty-ti-kxgl encounter with the patient, discussion of the case, plan of care, and exam; and hlggamc-qu-qvcc activities, such as reviewing pertinent oracle ebs consultant documentation, recent therapynotes, laboratory and radiology studies, and discussion of case with care team including physician, nursing, hospice case manager, and therapists. More than 50 % of time was spent on patient/family counseling or coordination ofcare. Documented By: Pa Neil MD 2207 Signed By: <Electronically signed by Pa Neil MD> 09/02/24 7583 [facility] Work Phone: 1(733) 813-755103-25-2025 [place] [address] Physiatry(Rehab) Progress Note Signed Patient: Judith Land MR#: [id number] : 1945 Acct:[id number] Age/Sex: 79 / F Adm Date: 5 Loc: Room: [address] [place] [address] Type: ADM IN Attending Dr: Pa Neil [...] % (Auto) 65.3 Lymph % (Auto) 15.8 Nye % (Auto) 17.1 Eos % (Auto) 1.1 Baso % (Auto) 0.7 Nucleat RBC Rel Count 0.2 Neut # (Auto) 5.7 Lymph # (Auto) 1.4 Nye # (Auto) 1.5 H Eos # (Auto) [...] mg 08/25/24 15:48 Bisacodyl 10 Mg Supp.Rect RI 08/25/25 15:47 DAILY PRN Constipation Carbidopa/Levodopa 1 tab 09/01/24 12:00 09/02/24 17:51 Carbidopa/Levodopa 10-100 Mg 1 Tab Tablet PO 09/01/25 11:59 1 tab TID@0700,1200,1700 LLOYD Administration Docusate Sodium 100 mg 08/25/24 15:48 09/02/24 22:01 Docusate 100 Mg Capsule PO 08/25/25 15:47 100 mg BID PRN Administration Constipation Docusate Sodium 283 mg 08/25/24 15:48 Docusate Enema 283 Mg/5 Ml Enema RI 08/25/25 15:47 DAILY PRN Constipation Heparin Sodium [...] is a 79-year-old female who presents to [facility] IRF due to multifactorial functional decline in the setting of acute UTI with metabolic encephalopathy in the setting ofParkinsons Disease. She has continued impaired mobility and impaired independence with ADLs and IADLs requiring PT/OT/SALES RELATIONSHIP MANAGER 5-7 days/week 3 hours/day to maximize safety [...] equipment to enhance the patient's a functional buddhist -Encourage deep breathing exercises and incentive spirometry -RD evaluation -Ensure adequate nutrition and hydration -Discharge planning. #. UPDATES -Cognition seems to be improving -Discussed adequate hydration with the patient. Will recheck labs in AM -Continue current care. Will have another FI this week with hopeful DC home thischuck -NWMitch WILDERE per patients orthopedic surgeon -Completed meropenem. -Continue [...] I spent 25 minutes for services, including guec-fk-jyas encounter with the patient, discussion of the case, plan of care, and exam; and nowvfmv-fb-pfgo activities, such as reviewing pertinent oracle ebs consultant documentation, recent therapynotes, laboratory and radiology studies, and discussion of case with care team including physician, nursing, hospice case manager, and therapists. More than 50 % of time was spent on patient/family counseling or coordination ofcare. Documented By: Pa Neil MD 2207 Signed By: 09/02/242213 [facility]03-24-2025 Progress note Author Baylee Ho [facility]Note Date/TimeMarch 2024 5:42[place] [address] Hospitalist Progress Note Signed Patient: Judith Land MR#: [id number] : 1945 Acct:[id number] Age/Sex: 79 / F Adm Date: 5 Loc: Room: [id number] Type: ADM IN Attending Dr: Pa Neil [...] mg 08/25/24 15:48 Bisacodyl 10 Mg Supp.Rect RI 08/25/25 15:47 DAILY PRN Constipation Carbidopa/Levodopa 1 tab 09/01/24 12:00 09/01/24 13:28 Carbidopa/Levodopa 10-100 Mg 1 Tab Tablet PO 09/01/25 11:59 1 tab TID@0700,1200,1700 LLOYD Administration Docusate Sodium 100 mg 08/25/24 15:48 08/31/24 08:43 Docusate 100 Mg Capsule PO 08/25/25 15:47 100 mg BID PRN Administration Constipation Docusate Sodium 283 mg 08/25/24 15:48 Docusate Enema 283 Mg/5 Ml Enema RI 08/25/25 15:47 DAILY PRN Constipation Heparin Sodium [...] Documented By: Baylee Ho APRN 08/10 10/03 142 Signed By: <Electronically signed by MIGUEL Ho> 09/01/24 1742 [facility] Work Phone: 1(536) 833-700203-24-2025 Progress note Author Baljeet Rao [facility] Date/TimeMarch 2024 3:52[place] [address] Neurology Progress Note Signed Patient: Judith Land MR#: [id number] : 1945 Acct:[id number] Age/Sex: 79 / F Adm Date: 5 Loc: Room: [id number] Type: ADM IN Attending Dr: Pa Neil [...] concerns Documented By: Baljeet Rao DO 5 5383 Signed By: <Electronically signed by Baljeet Rao DO> 09/01/24 1552 [facility] Work Phone: 1(230) 115-598503-24-2025 [place] [id number] Hospitalist Progress Note Signed Patient: Judith Land MR#: [id number] : 1945 Acct:[id number] Age/Sex: 79 / F Adm Date: 5 Loc: Room: [address] [place] [address] Type: ADM IN Attending Dr: Pa Neil [...] mg 08/25/24 15:48 Bisacodyl 10 Mg Supp.Rect RI 08/25/25 15:47 DAILY PRN Constipation Carbidopa/Levodopa 1 tab 09/01/24 12:00 09/01/24 13:28 Carbidopa/Levodopa 10-100 Mg 1 Tab Tablet PO 09/01/25 11:59 1 tab TID@0700,1200,1700 LLOYD Administration Docusate Sodium 100 mg 08/25/24 15:48 08/31/24 08:43 Docusate 100 Mg Capsule PO 08/25/25 15:47 100 mg BID PRN Administration Constipation Docusate Sodium 283 mg 08/25/24 15:48 Docusate Enema 283 Mg/5 Ml Enema RI 08/25/25 15:47 DAILY PRN Constipation Heparin Sodium (Porcine) 5,000 unit 08/25/24 21:00 09/01/24 09:30 Heparin 5,000 Unit/Ml Vial SUBCUT 08/25/25 20:59 5,000 unit Q12HR LLOYD Administration Hydralazine HCl 25 mg 08/25/24 21:00 09/01/24 09:29 Hydralazine 25 Mg Tablet PO 08/25/25 20:59 25 mg BID LLYOD Administration Lactulose 30 gm 08/25/24 15:48 Lactulose [...] Documented By: Baylee Ho, MIGUEL 08/10 10/03 1425 Signed By: 09/01/[address] [facility]03-24-2025 Radiology Diagnostic study note [facility] Main [place] [address] [place] [address] CT Scan Report Signed Patient: Judith Land MR#: [id number] : 1945 Acct:[id number] Age/Sex: 79 / F ADM Date: 5 Loc: Room: 4Y2601-7 Type: ADM IN Attending Dr: Pa Neil [...] Guerrero Jr., D.ORatna09/01/2024 4:29 PM Dictation Location: [facility]-18 Transcribed By: [facility] 09/01/241628 Dictated By: Ramsey Guerrero Jr, DO 09/01/241626 Signed By: 09/01/[address] [facility]03-24-2025 [place] [address] Neurology Progress Note Signed Patient: Judith Land MR#: [id number] : 1945 Acct:[id number] Age/Sex: 79 / F Adm Date: 5 Loc: Room: [address] [place] [address] Type: ADM IN Attending Dr: Pa Neil [...] concerns Documented By: Baljeet Rao DO 5 1350 Signed By: 09/01/[address] [facility]03-24-2025 Progress note Author Pa Neil [facility]Note Date/TimeMarch 2024 12:06pm[place] [address] Physiatry(Rehab) Progress Note Signed Patient: Judith Land MR#: [id number] : 1945 Acct:[id number] Age/Sex: 79 / F Adm Date: Loc: Room: [address] [place] [address] Type: ADM IN Attending Dr: Pa Neil [...] % (Auto) 64.8 Lymph % (Auto) 20.6 Nye % (Auto) 13.4 Eos % (Auto) 0.7 Baso % (Auto) 0.5 Nucleat RBC Rel Count 0.1 Neut # (Auto) 4.3 Lymph # (Auto) 1.4 Nye # (Auto) 0.9 H Eos # (Auto) [...] mg 08/25/24 15:48 Bisacodyl 10 Mg Supp.Rect RI 08/25/25 15:47 DAILY PRN Constipation Carbidopa/Levodopa 1 tab 09/01/24 12:00 Carbidopa/Levodopa 10-100 Mg 1 Tab Tablet PO 09/01/25 11:59 TID@0700,1200,1700 LLOYD Docusate Sodium 100 mg 08/25/24 15:48 08/31/24 08:43 Docusate 100 Mg Capsule PO 08/25/25 15:47 100 mg BID PRN Administration Constipation Docusate Sodium 283 mg 08/25/24 15:48 Docusate Enema 283 Mg/5 Ml Enema RI 08/25/25 15:47 DAILY PRN Constipation Heparin Sodium [...] is a 79-year-old female who presents to [facility] IRF due to multifactorial functional decline in the setting of acute UTI with metabolic encephalopathy in the setting ofParkinsons Disease. She has continued impaired mobility and impaired independence with ADLs and IADLs requiring PT/OT/SALES RELATIONSHIP MANAGER 5-7 days/week 3 hours/day to maximize safety [...] equipment to enhance the patient's a functional buddhist -Encourage deep breathing exercises and incentive spirometry [...] I spent 30 minutes for services, including fajn-vv-cyxz encounter with the patient, discussion of the case, plan of care, and exam; and cphszyy-iy-egxb activities, such as reviewing pertinent oracle ebs consultant documentation, recent therapynotes, laboratory and radiology studies, and discussion of case with care team including physician, nursing, hospice case manager, and therapists. More than 50 % of time was spent on patient/family counseling or coordination ofcare. Documented By: Pa Neil MD 1200 Signed By: <Electronically signed by Pa Neil MD> 09/01/24 1206 [facility] Work Phone: 1(434) 200-478103-24-2025 [place] [address] Physiatry(Rehab) Progress Note Signed Patient: Judith Land MR#: [id number] : 1945 Acct:[id number] Age/Sex: 79 / F Adm Date: 5 Loc: Room: [address] [place] [address] Type: ADM IN Attending Dr: Pa Neil [...] % (Auto) 64.8 Lymph % (Auto) 20.6 Nye % (Auto) 13.4 Eos % (Auto) 0.7 Baso % (Auto) 0.5 Nucleat RBC Rel Count 0.1 Neut # (Auto) 4.3 Lymph # (Auto) 1.4 Nye # (Auto) 0.9 H Eos # (Auto) [...] mg 08/25/24 15:48 Bisacodyl 10 Mg Supp.Rect RI 08/25/25 15:47 DAILY PRN Constipation Carbidopa/Levodopa 1 tab 09/01/24 12:00 Carbidopa/Levodopa 10-100 Mg 1 Tab Tablet PO 09/01/25 11:59 TID@0700,1200,1700 LLOYD Docusate Sodium 100 mg 08/25/24 15:48 08/31/24 08:43 Docusate 100 Mg Capsule PO 08/25/25 15:47 100 mg BID PRN Administration Constipation Docusate Sodium 283 mg 08/25/24 15:48 Docusate Enema 283 Mg/5 Ml Enema RI 08/25/25 15:47 DAILY PRN Constipation Heparin Sodium [...] is a 79-year-old female who presents to [facility] IRF due to multifactorial functional decline in the setting of acute UTI with metabolic encephalopathy in the setting ofParkinsons Disease. She has continued impaired mobility and impaired independence with ADLs and IADLs requiring PT/OT/SALES RELATIONSHIP MANAGER 5-7 days/week 3 hours/day to maximize safety [...] equipment to enhance the patient's a functional buddhist -Encourage deep breathing exercises and incentive spirometry [...] I spent 30 minutes for services, including yheo-zp-hehq encounter with the patient, discussion of the case, plan of care, and exam; and qhlqdsj-pb-pvxa activities, such as reviewing pertinent oracle ebs consultant documentation, recent therapynotes, laboratory and radiology studies, and discussion of case with care team including physician, nursing, hospice case manager, and therapists. More than 50 % of time was spent on patient/family counseling or coordination ofcare. Documented By: Pa Neil MD 1200 Signed By: 09/01/[address] [facility]03-24-2025 Progress note Author Pa Neil [facility]Note Date/TimeMarch 2024 10:13[place] [address] Physiatry(Rehab) Progress Note Signed Patient: Judith Land MR#: [id number] : 1945 Acct:[id number] Age/Sex: 79 / F Adm Date: 5 Loc: Room: 6U9456-0 Type: ADM IN Attending Dr: Pa Neil [...] % (Auto) 64.8 Lymph % (Auto) 20.6 Nye % (Auto) 13.4 Eos % (Auto) 0.7 Baso % (Auto) 0.5 Nucleat RBC Rel Count 0.1 Neut # (Auto) 4.3 Lymph # (Auto) 1.4 Nye # (Auto) 0.9 H Eos # (Auto) [...] mg 08/25/24 15:48 Bisacodyl 10 Mg Supp.Rect RI 08/25/25 15:47 DAILY PRN Constipation Carbidopa/Levodopa 1 tab 08/25/24 22:00 08/31/24 21:33 Carbidopa/Levodopa 10-100 Mg 1 Tab Tablet PO 08/25/25 21:59 1 tab TID LLOYD Administration Docusate Sodium 100 mg 08/25/24 15:48 08/31/24 08:43 Docusate 100 Mg Capsule PO 08/25/25 15:47 100 mg BID PRN Administration Constipation Docusate Sodium 283 mg 08/25/24 15:48 Docusate Enema 283 Mg/5 Ml Enema RI 08/25/25 15:47 DAILY PRN Constipation Heparin Sodium [...] is a 79-year-old female who presents to [facility] IRF due to multifactorial functional decline in the setting of acute UTI with metabolic encephalopathy in the setting ofParkinsons Disease. She has continued impaired mobility and impaired independence with ADLs and IADLs requiring PT/OT/SALES RELATIONSHIP MANAGER 5-7 days/week 3 hours/day to maximize safety [...] equipment to enhance the patient's a functional buddhist -Encourage deep breathing exercises and incentive spirometry [...] I spent 30 minutes for services, including jxar-jn-grlg encounter with the patient, discussion of the case, plan of care, and exam; and jwdbgzj-ui-ygif activities, such as reviewing pertinent oracle ebs consultant documentation, recent therapynotes, laboratory and radiology studies, and discussion of case with care team including physician, nursing, hospice case manager, and therapists. More than 50 % of time was spent on patient/family counseling or coordination ofcare. Documented By: Pa Neil MD 2207 Signed By: <Electronically signed by Pa Neil MD> 08/31/24 4365 [facility] Work Phone: 1(606) 613-795203-23-[address] [address] Physiatry(Rehab) Progress Note Signed Patient: Judith Land MR#: [id number] : 1945 Acct:[id number] Age/Sex: 79 / F Adm Date: 5 Loc: 5T Room: 7K0024-0 Type: ADM IN Attending Dr: Pa Neil [...] % (Auto) 64.8 Lymph % (Auto) 20.6 Nye % (Auto) 13.4 Eos % (Auto) 0.7 Baso % (Auto) 0.5 Nucleat RBC Rel Count 0.1 Neut # (Auto) 4.3 Lymph # (Auto) 1.4 Nye # (Auto) 0.9 H Eos # (Auto) [...] mg 08/25/24 15:48 Bisacodyl 10 Mg Supp.Rect RI 08/25/25 15:47 DAILY PRN Constipation Carbidopa/Levodopa 1 tab 08/25/24 22:00 08/31/24 21:33 Carbidopa/Levodopa 10-100 Mg 1 Tab Tablet PO 08/25/25 21:59 1 tab TID LLOYD Administration Docusate Sodium 100 mg 08/25/24 15:48 08/31/24 08:43 Docusate 100 Mg Capsule PO 08/25/25 15:47 100 mg BID PRN Administration Constipation Docusate Sodium 283 mg 08/25/24 15:48 Docusate Enema 283 Mg/5 Ml Enema RI 08/25/25 15:47 DAILY PRN Constipation Heparin Sodium [...] is a 79-year-old female who presents to [facility] IRF due to multifactorial functional decline in the setting of acute UTI with metabolic encephalopathy in the setting ofParkinsons Disease. She has continued impaired mobility and impaired independence with ADLs and IADLs requiring PT/OT/SALES RELATIONSHIP MANAGER 5-7 days/week 3 hours/day to maximize safety [...] equipment to enhance the patient's a functional buddhist -Encourage deep breathing exercises and incentive spirometry [...] I spent 30 minutes for services, including oxdn-ao-yafr encounter with the patient, discussion of the case, plan of care, and exam; and ljppiyi-rm-mgku activities, such as reviewing pertinent oracle ebs consultant documentation, recent therapynotes, laboratory and radiology studies, and discussion of case with care team including physician, nursing, hospice case manager, and therapists. More than 50 % of time was spent on patient/family counseling or coordination ofcare. Documented By: Pa Neil MD 2207 Signed By: 08/31/242212 [facility]03-22-2025 Progress note Author Didi Ramon [facility] Date/TimeMarch 2024 11:00[place] [address] Physiatry(Rehab) Progress Note Signed Patient: Judith Land MR#: [id number] : 1945 Acct:[id number] Age/Sex: 79 / F Adm Date: 5 Loc: Room: 1A5637-7 Type: ADM IN Attending Dr: Pa Neil [...] mg 08/25/24 15:48 Bisacodyl 10 Mg Supp.Rect RI 08/25/25 15:47 DAILY PRN Constipation Carbidopa/Levodopa 1 tab 08/25/24 22:00 08/29/24 11:10 Carbidopa/Levodopa 10-100 Mg 1 Tab Tablet PO 08/25/25 21:59 1 tab TID LLOYD Administration Docusate Sodium 100 mg 08/25/24 15:48 08/28/24 20:20 Docusate 100 Mg Capsule PO 08/25/25 15:47 100 mg BID PRN Administration Constipation Docusate Sodium 283 mg 08/25/24 15:48 Docusate Enema 283 Mg/5 Ml Enema RI 08/25/25 15:47 DAILY PRN Constipation Heparin Sodium [...] is a 79-year-old female who presents to [facility] IRF due to multifactorial functional decline in the setting of acute UTI with metabolic encephalopathy in the setting ofParkinsons Disease. She has continued impaired mobility and impaired independence with ADLs and IADLs requiring PT/OT/SALES RELATIONSHIP MANAGER 5-7 days/week 3 hours/day to maximize safety [...] equipment to enhance the patient's a functional buddhist -Encourage deep breathing exercises and incentive spirometry [...] Impaired. Limited by pain, weakness Discharge planning: JSOE LUIS 1-2 weeks I spent 23 minutes for services, including uubi-ms-izwf encounter with the patient, discussion of the case, plan of care, and exam; and ueoajxw-kp-ozan activities, such as reviewing pertinent oracle ebs consultant documentation, recent therapynotes, laboratory and radiology studies, and discussion of case with care team including physician, nursing, hospice case manager, and therapists. More than 50 % of time was spent on patient/family counseling or coordination ofcare. <Statement entered by Pa Neil MD - 08/29/24 23:00> This documentation has been reviewed and approved. Documented By: Didi Navarro APRN 08/29/24 1 328 Signed By: <Electronically signed by MIGUEL Navarro> 08/29/24 1335 <Electronically signed by Pa Neil MD> 08/29/24 2300 [facility] Work Phone: 1(364) 580-447003-21-2025 [place] [address] Physiatry(Rehab) Progress Note Signed Patient: Judith Land MR#: [id number] : 1945 Acct:[id number] Age/Sex: 79 / F Adm Date: 5 Loc: Room: [address] [place] [address] Type: ADM IN Attending Dr: Pa Neil [...] that this was just recently repaired on March 4th. They note that she was NWB post [...] mg 08/25/24 15:48 Bisacodyl 10 Mg Supp.Rect RI 08/25/25 15:47 DAILY PRN Constipation Carbidopa/Levodopa 1 tab 08/25/24 22:00 08/29/24 11:10 Carbidopa/Levodopa 10-100 Mg 1 Tab Tablet PO 08/25/25 21:59 1 tab TID LLOYD Administration Docusate Sodium 100 mg 08/25/24 15:48 08/28/24 20:20 Docusate 100 Mg Capsule PO 08/25/25 15:47 100 mg BID PRN Administration Constipation Docusate Sodium 283 mg 08/25/24 15:48 Docusate Enema 283 Mg/5 Ml Enema RI 08/25/25 15:47 DAILY PRN Constipation Heparin Sodium [...] 08/28/24 20:20 Sennosides 8.6 Mg Tablet PO 03/18/26 11:59 17.2 mg DAILY@12 PRN Administration If [...] is a 79-year-old female who presents to [facility] IRF due to multifactorial functional decline in the setting of acute UTI with metabolic encephalopathy in the setting ofParkinsons Disease. She has continued impaired mobility and impaired independence with ADLs and IADLs requiring PT/OT/SALES RELATIONSHIP MANAGER 5-7 days/week 3 hours/day to maximize safety [...] equipment to enhance the patient's a functional buddhist -Encourage deep breathing exercises and incentive spirometry [...] I spent 23 minutes for services, including djpl-pc-pryh encounter with the patient, discussion of the case, plan of care, and exam; and haxqpor-qh-jwys activities, such as reviewing pertinent oracle ebs consultant documentation, recent therapynotes, laboratory and radiology studies, and discussion of case with care team including physician, nursing, hospice case manager, and therapists. More than 50 % of time was spent on patient/family counseling or coordination ofcare. This documentation has been reviewed and approved. Documented By: Didi Navarro, MIGUEL 08/29/24 1 328 Signed By: 08/29/24 1335 08/29/[address] [facility]03-20-2025 Consult note Author Katarzyna Major [facility] HospitalNote Date/TimeMarch 2024 2:29pm[place] [address] Hospitalist Consult Note Signed Patient: Judith Land MR#: [id number] : 1945 Acct:[id number] Age/Sex: 79 / F Adm Date: 5 Loc: Room: [address] [place] [address] Type: ADM IN Attending Dr: Pa Neil [...] negative unless noted in the HPI below [facility] Source: Old Records Reviewed Medical History RLS [...] mg 08/25/24 15:48 Bisacodyl 10 Mg Supp.Rect RI 08/25/25 15:47 DAILY PRN Constipation Carbidopa/Levodopa 1 tab 08/25/24 22:00 08/26/24 09:05 Carbidopa/Levodopa 10-100 Mg 1 Tab Tablet PO 08/25/25 21:59 1 tab TID LLOYD Administration Docusate Sodium 100 mg 08/25/24 15:48 Docusate 100 Mg Capsule PO 08/25/25 15:47 BID PRN Constipation Docusate Sodium 283 mg 08/25/24 15:48 Docusate Enema 283 Mg/5 Ml Enema RI 08/25/25 15:47 DAILY PRN Constipation Heparin Sodium [...] 08/26/24 09:00 08/26/24 09:06 Pantoprazole 40 Mg Tablet. PO 08/26/25 08:59 40 mg QAM LLOYD [...] % (Auto) N/A, Lymph % (Auto) N/A, Nye% (Auto) N/A, Eos % (Auto) N/A, Baso% (Auto) N/A, Nucleat RBC Rel Count N/A, Neut # (Auto) N/A, Lymph # (Auto) N/A, Nye # (Auto) N/A, Eos # (Auto) N/A, [...] <Electronically signed by Aristeo Kong DO> 08/28/24 1429 [facility] Work Phone: 1(950) 819-192403-20-2025 Progress note Author Pa Neil [facility]Note Date/TimeMarch 2024 12:42[place] [address] Physiatry(Rehab) Progress Note Signed Patient: Judith Land MR#: [id number] : 1945 Acct:[id number] Age/Sex: 79 / F Adm Date: 5 Loc: Room: 5B5483-2 Type: ADM IN Attending Dr: Pa Neil [...] Dose Route Start Last Admin Trade Name Tavonq PRN Reason Stop Dose Admin Acetaminophen 500 [...] mg 08/25/24 15:48 Bisacodyl 10 Mg Supp.Rect RI 08/25/25 15:47 DAILY PRN Constipation Carbidopa/Levodopa 1 tab 08/25/24 22:00 08/28/24 08:39 Carbidopa/Levodopa 10-100 Mg 1 Tab Tablet PO 08/25/25 21:59 1 tab TID LLOYD Administration Docusate Sodium 100 mg 08/25/24 15:48 Docusate 100 Mg Capsule PO 08/25/25 15:47 BID PRN Constipation Docusate Sodium 283 mg 08/25/24 15:48 Docusate Enema 283 Mg/5 Ml Enema RI 08/25/25 15:47 DAILY PRN Constipation Heparin Sodium [...] is a 79-year-old female who presents to [facility] IRF due to multifactorial functional decline in the setting of acute UTI with metabolic encephalopathy in the setting ofParkinsons Disease. She has continued impaired mobility and impaired independence with ADLs and IADLs requiring PT/OT/SALES RELATIONSHIP MANAGER 5-7 days/week 3 hours/day to maximize safety [...] equipment to enhance the patient's a functional buddhist -Encourage deep breathing exercises and incentive spirometry [...] I spent 25 minutes for services, including negc-bh-jdwu encounter with the patient, discussion of the case, plan of care, and exam; and hapsyaj-jo-tkjv activities, such as reviewing pertinent oracle ebs consultant documentation, recent therapynotes, laboratory and radiology studies, and discussion of case with care team including physician, nursing, hospice case manager, and therapists. More than 50 % of time was spent on patient/family counseling or coordination ofcare. Documented By: Pa Neil MD 1239 Signed By: <Electronically signed by Pa Neil MD> 08/28/24 1242 [facility] Work Phone: 1(859) 484-410803-20-2025 [place] [id number] Hospitalist Consult Note Signed Patient: Judith Land MR#: [id number] : 1945 Acct:[id number] Age/Sex: 79 / F Adm Date: 5 Loc: Room: 2M5402-4 Type: ADM IN Attending Dr: Pa Neil MD Copies to: MD Kavon Champion MD Linda Obika, APRN Aristeo Kong DO~ HPI DATE OF CONSULTATION: 08/26/24 REQUESTING [...] mg 08/25/24 15:48 Bisacodyl 10 Mg Supp.Rect RI 08/25/25 15:47 DAILY PRN Constipation Carbidopa/Levodopa 1 tab 08/25/24 22:00 08/26/24 09:05 Carbidopa/Levodopa 10-100 Mg 1 Tab Tablet PO 08/25/25 21:59 1 tab TID LLOYD Administration Docusate Sodium 100 mg 08/25/24 15:48 Docusate 100 Mg Capsule PO 08/25/25 15:47 BID PRN Constipation Docusate Sodium 283 mg 08/25/24 15:48 Docusate Enema 283 Mg/5 Ml Enema RI 08/25/25 15:47 DAILY PRN Constipation Heparin Sodium [...] % (Auto) N/A, Lymph % (Auto) N/A, Nye% (Auto) N/A, Eos % (Auto) N/A, Baso% (Auto) N/A, Nucleat RBC Rel Count N/A, Neut # (Auto) N/A, Lymph # (Auto) N/A, Nye # (Auto) N/A, Eos # (Auto) N/A, [...] 1445 Signed By: 08/26/24 1546 08/28/[address] [facility]03-20-2025 [place] [address] Physiatry(Rehab) Progress Note Signed Patient: Judith Land MR#: [id number] : 1945 Acct:[id number] Age/Sex: 79 / F Adm Date: 5 Loc: Room: 5H3408-4 Type: ADM IN Attending Dr: Pa Neil [...] mg 08/25/24 15:48 Bisacodyl 10 Mg Supp.Rect RI 08/25/25 15:47 DAILY PRN Constipation Carbidopa/Levodopa 1 tab 08/25/24 22:00 08/28/24 08:39 Carbidopa/Levodopa 10-100 Mg 1 Tab Tablet PO 08/25/25 21:59 1 tab TID LLOYD Administration Docusate Sodium 100 mg 08/25/24 15:48 Docusate 100 Mg Capsule PO 08/25/25 15:47 BID PRN Constipation Docusate Sodium 283 mg 08/25/24 15:48 Docusate Enema 283 Mg/5 Ml Enema RI 08/25/25 15:47 DAILY PRN Constipation Heparin Sodium [...] is a 79-year-old female who presents to [facility] IRF due to multifactorial functional decline in the setting of acute UTI with metabolic encephalopathy in the setting ofParkinsons Disease. She has continued impaired mobility and impaired independence with ADLs and IADLs requiring PT/OT/SALES RELATIONSHIP MANAGER 5-7 days/week 3 hours/day to maximize safety [...] equipment to enhance the patient's a functional buddhist -Encourage deep breathing exercises and incentive spirometry [...] I spent 25 minutes for services, including ygiq-yy-srbz encounter with the patient, discussion of the case, plan of care, and exam; and cyjnnoc-cv-wqsg activities, such as reviewing pertinent oracle ebs consultant documentation, recent therapynotes, laboratory and radiology studies, and discussion of case with care team including physician, nursing, hospice case manager, and therapists. More than 50 % of time was spent on patient/family counseling or coordination ofcare. Documented By: Pa Neil MD 1239 Signed By: 08/28/[address] [facility]03-19-2025 Progress note Author Didi Navarro [facility] HospitalNote Date/TimeMarch 2024 8:54pm[place] [address] Physiatry(Rehab) Progress Note Signed Patient: Judith Land MR#: [id number] : 1945 Acct:[id number] Age/Sex: 79 / F Adm Date: 5 Loc: Room: [address] [place] [address] Type: ADM IN Attending Dr: Pa Neil [...] mg 08/25/24 15:48 Bisacodyl 10 Mg Supp.Rect RI 08/25/25 15:47 DAILY PRN Constipation Carbidopa/Levodopa 1 tab 08/25/24 22:00 08/27/24 14:43 Carbidopa/Levodopa 10-100 Mg 1 Tab Tablet PO 08/25/25 21:59 1 tab TID LLOYD Administration Docusate Sodium 100 mg 08/25/24 15:48 Docusate 100 Mg Capsule PO 08/25/25 15:47 BID PRN Constipation Docusate Sodium 283 mg 08/25/24 15:48 Docusate Enema 283 Mg/5 Ml Enema RI 08/25/25 15:47 DAILY PRN Constipation Heparin Sodium [...] is a 79-year-old female who presents to [facility] due to multifactorial functional decline in the setting of acute UTI with metabolic encephalopathy in the setting ofParkinsons Disease. She has continued impaired mobility and impaired independence with ADLs and IADLs requiring PT/OT/SALES RELATIONSHIP MANAGER 5-7 days/week 3 hours/day to maximize safety [...] equipment to enhance the patient's a functional buddhist -Encourage deep breathing exercises and incentive spirometry [...] I spent 25 minutes for services, including vzfq-wc-nacn encounter with the patient, discussion of the case, plan of care, and exam; and dayyglt-mi-kmuc activities, such as reviewing pertinent oracle ebs consultant documentation, recent therapynotes, laboratory and radiology studies, and discussion of case with care team including physician, nursing, hospice case manager, and therapists. More than 50 % of time was spent on patient/family counseling or coordination ofcare. <Statement entered by Pa Neil MD - 08/27/24 20:54> This documentation has been reviewed and approved. Documented By: Didi Navarro APRN 08/27/24 1 203 Signed By: <Electronically signed by MIGUEL Navarro> 08/27/24 1603 <Electronically signed by Pa Neil MD> 08/27/242053 [facility] Work Phone: 1(398) 486-862503-19-2025 [place] [address] Physiatry(Rehab) Progress Note Signed Patient: Judith Lnad MR#: [id number] : 1945 Acct:[id number] Age/Sex: 79 / F Adm Date: 5 Loc: Room: 9A6503-1 Type: ADM IN Attending Dr: Pa Neil [...] mg 08/25/24 15:48 Bisacodyl 10 Mg Supp.Rect RI 08/25/25 15:47 DAILY PRN Constipation Carbidopa/Levodopa 1 tab 08/25/24 22:00 08/27/24 14:43 Carbidopa/Levodopa 10-100 Mg 1 Tab Tablet PO 08/25/25 21:59 1 tab TID LLOYD Administration Docusate Sodium 100 mg 08/25/24 15:48 Docusate 100 Mg Capsule PO 08/25/25 15:47 BID PRN Constipation Docusate Sodium 283 mg 08/25/24 15:48 Docusate Enema 283 Mg/5 Ml Enema RI 08/25/25 15:47 DAILY PRN Constipation Heparin Sodium [...] is a 79-year-old female who presents to [facility] IRF due to multifactorial functional decline in the setting of acute UTI with metabolic encephalopathy in the setting ofParkinsons Disease. She has continued impaired mobility and impaired independence with ADLs and IADLs requiring PT/OT/SALES RELATIONSHIP MANAGER 5-7 days/week 3 hours/day to maximize safety [...] equipment to enhance the patient's a functional buddhist -Encourage deep breathing exercises and incentive spirometry [...] I spent 25 minutes for services, including ywcy-sg-swzs encounter with the patient, discussion of the case, plan of care, and exam; and thmkerx-gk-jkyf activities, such as reviewing pertinent oracle ebs consultant documentation, recent therapynotes, laboratory and radiology studies, and discussion of case with care team including physician, nursing, hospice case manager, and therapists. More than 50 % of time was spent on patient/family counseling or coordination ofcare. This documentation has been reviewed and approved. Documented By: Didi Navarro APRN 08/27/24 1 203 Signed By: 08/27/24 1603 08/27/242053 [facility]03-18-2025 History and physical note Author Pa Neil [facility] HospitalNote Date/TimeMarch 2024 12:58pmL[place] [address] Physiatry (Rehab) H&P Signed Patient: Judith Land MR#: [id number] : 1945 Acct:[id number] Age/Sex: 79 / F Adm Date: 5 Loc: Room: [address] [place] [address] Type: ADM IN Attending Dr: Pa Neil [...] been much worse over the past month. [facility] Medical History RLS (restless legs syndrome) CAD [...] Bisacodyl (Bisacodyl 10 Mg Supp.Rect) 10 mg RI DAILY PRN PRN Reason: Constipation Stop: 08/25/25 15:47 Carbidopa/Levodopa (Carbidopa/Levodopa 10-100 Mg 1 Tab Tablet) 1 tab PO TID LLOYD Stop: 08/25/25 21:59 Last Admin: 08/26/24 09:05 Dose: 1 tab Docusate Sodium (Docusate 100 Mg Capsule) 100 mg PO BID PRN PRN Reason: Constipation Stop: 08/25/25 15:47 Docusate Sodium (Docusate Enema 283 Mg/5 Ml Enema) 283 mg RI DAILY PRN PRN Reason: Constipation Stop: 08/25/25 [...] % (Auto) N/A Lymph % (Auto) N/A Nye % (Auto) N/A Eos % (Auto) N/A Baso % (Auto) N/A Nucleat RBC Rel Count N/A Neut # (Auto) N/A Lymph # (Auto) N/A Nye # (Auto) N/A Eos # (Auto) N/A [...] safe cognitively. Anticipated interventions: Physician management, PT, OT,SALES RELATIONSHIP MANAGER Dietitian, Rehab Nursing -Therapy Functional Outcome/Goal: Patient [...] additional therapy on as needed basis. Comments: SALES RELATIONSHIP MANAGER to evaluate and treat patient?s cognition, language and communication skills, assess swallow function. Other: Dietitian, Rehab nursing, Wound, P&O, Neuropsychology as needed RATIONALE FOR IRF ADMISSION: Patient has both medical and functional complexities that require 24 hour daily monitoring and intervention from Budget Clerk as well as other consulting physicians including internal medicine as well as 24 hour daily billiard table assembler nursing - for medical safe / optimal manageme nt. Patient requires interdisciplinary therapy team rehabilitation care including OT, PT, SALES RELATIONSHIP MANAGER, SW, Psychology, Rehab Nursing, requires and can [...] is a 79-year-old female who presents to [facility] IRF due to multifactorial functional decline in the setting of acute UTI with metabolic encephalopathy in the setting ofParkinsons Disease. She has continued impaired mobility and impaired independence with ADLs and IADLs requiring PT/OT/SALES RELATIONSHIP MANAGER 5-7 days/week 3 hours/day to maximize safety [...] equipment to enhance the patient's a functional buddhist -Encourage deep breathing exercises and incentive spirometry [...] chart, including current orders, allied health and oracle ebs consultant notes, labs/imaging and performed moss elements of exam and I formulatedthe planof care and facilitated the medical decision making. I completed a substantive portion of this encounter, the medical decision makingportion of this note in its entirety, including Allied health note review, nursing note review, oracle ebs consultant note review,discussion with nursing and case management, and more than 50% of my time was spent on counseling and coordination of care, time spent 75 minutes Documented By: Pa Neil MD 1024 Signed By: <Electronically signed by Pa Neil MD> 08/26/24 1258 [facility] Work Phone: 1(724) 689-419003-18-2025 [place] [address] Physiatry (Rehab) H&P Signed Patient: Judith Land MR#: [id number] : 1945 Acct:[id number] Age/Sex: 79 / F Adm Date: 5 Loc: Room: 8C9082-7 Type: ADM IN Attending Dr: Pa Neil [...] been much worse over the past month. [facility] Medical History RLS (restless legs syndrome) CAD [...] Bisacodyl (Bisacodyl 10 Mg Supp.Rect) 10 mg RI DAILY PRN PRN Reason: Constipation Stop: 08/25/25 15:47 Carbidopa/Levodopa (Carbidopa/Levodopa 10-100 Mg 1 Tab Tablet) 1 tab PO TID LLOYD Stop: 08/25/25 21:59 Last Admin: 08/26/24 09:05 Dose: 1 tab Docusate Sodium (Docusate 100 Mg Capsule) 100 mg PO BID PRN PRN Reason: Constipation Stop: 08/25/25 15:47 Docusate Sodium (Docusate Enema 283 Mg/5 Ml Enema) 283 mg RI DAILY PRN PRN Reason: Constipation Stop: 08/25/25 [...] 0.25 Mg Tablet) 0.25 mg PO QHS [facility] Stop: 08/25/25 21:59 Last Admin: 08/25/24 21:27 [...] 10 Ml Syringe) 10 ml IV-PUSH Q8H [facility] Stop: 08/25/25 21:59 Last Admin: 08/26/24 05:41 Dose: 10 ml Vitamin D (Cholecalciferol 125 Mcg (5,000 Units) Capsule) 125 mcg PO DAILY LLOYD Stop: 08/26/25 08:59 Last Admin: 08/26/24 09:06 Dose: 125 mcg Zinc Gluconate (Zinc Gluconate 50 Mg Tablet) 50 mg PO DAILY [facility] Stop: 08/26/25 08:59 Last Admin: 08/26/24 09:06 [...] % (Auto) N/A Lymph % (Auto) N/A Nye % (Auto) N/A Eos % (Auto) N/A Baso % (Auto) N/A Nucleat RBC Rel Count N/A Neut # (Auto) N/A Lymph # (Auto) N/A Nye # (Auto) N/A Eos # (Auto) N/A [...] safe cognitively. Anticipated interventions: Physician management, PT, OT,SALES RELATIONSHIP MANAGER Dietitian, Rehab Nursing -Therapy Functional Outcome/Goal: Patient [...] additional therapy on as needed basis. Comments: SALES RELATIONSHIP MANAGER to evaluate and treat patient?s cognition, language and communication skills, assess swallow function. Other: Dietitian, Rehab nursing, Wound, P&O, Neuropsychology as needed RATIONALE FOR IRF ADMISSION: Patient has both medical and functional complexities that require 24 hour daily monitoring and intervention from Budget Clerk as well as other consulting physicians including internal medicine as well as 24 hour daily billiard table assembler nursing - for medical safe / optimal manageme nt. Patient requires interdisciplinary therapy team rehabilitation care including OT, PT, SALES RELATIONSHIP MANAGER, SW, Psychology, Rehab Nursing, requires and can [...] is a 79-year-old female who presents to [facility] IRF due to multifactorial functional decline in the setting of acute UTI with metabolic encephalopathy in the setting ofParkinsons Disease. She has continued impaired mobility and impaired independence with ADLs and IADLs requiring PT/OT/SALES RELATIONSHIP MANAGER 5-7 days/week 3 hours/day to maximize safety [...] equipment to enhance the patient's a functional buddhist -Encourage deep breathing exercises and incentive spirometry [...] chart, including current orders, allied health and oracle ebs consultant notes, labs/imaging and performed moss elements of exam and I formulatedthe planof care and facilitated the medical decision making. I completed a substantive portion of this encounter, the medical decision makingportion of this note in its entirety, including Allied health note review, nursing note review, oracle ebs consultant note review,discussion with nursing and case management, and more than 50% of my time was spent on counseling and coordination of care, time spent 75 minutes Documented By: Pa Neil MD 1024 Signed By: 08/26/[address] [facility]03-17-2025 Discharge summary Author Mariajose Alfred [facility]Note Date/TimeMarch 2024 12:22pm[place] [address] Discharge Summary Signed Patient: Judith Land MR#: [id number] : 1945 Acct:[id number] Age/Sex: 79 / F Adm Date: 5 Loc: Room: [address] [place] [address]: Mariajose Alfred MD Copies to: [...] Discharge Plan Discharge Plan Patient Dis[place] [facility] [place]: Ambulate as Tolerated Diet: Regular Additional [...] PO DAILY Follow Up: [facility] [place] [Outside] (Please arrange a follow-up appointment once discharged from rehab. ) Kavon Sams MD [Primary Care Provider] - (Please arrange a follow-up appointment once dischargedfrom rehab. ) Continuity of Care Document Health Concerns: A [facility] screening has identified you as FRAIL or [...] Strong:Four Ways to Beat the Frailty Risk https://www.[facility].org/health/pwtcpkym-nbb-hcuqpmpqvf/st lk-gjahzf-icqc- ofym-sk-xnkj-lmt-zxkemci-iaph Exam Physical Exam Vital Signs: Temp Pulse [...] signed by Mariajose Alfred MD> 08/25/24 1222 [facility] Work Phone: 1(774) 985-537903-17-2025 [place] [address] Discharge Summary Signed Patient: Judith Land MR#: [id number] : 1945 Acct:[id number] Age/Sex: 79 / F Adm Date: 5 Loc: Room: [address] [place] [address]: Mariajose Alfred MD Copies to: [...] Consult to Physiatry Routine Comment: Consulting Provider: [facility] - Phys Med - Rehab Reason For [...] Discharge Plan Discharge Plan Patient Disposition: [place] [facility] Activity: Ambulate as Tolerated Diet: Regular Additional [...] PO DAILY Follow Up: [facility] [place] [Outside] (Please arrange a follow-up appointment once discharged from rehab. ) Kavon Sams MD [Primary Care Provider] - (Please arrange a follow-up appointment once dischargedfrom rehab. ) Continuity of Care Document Health Concerns: A [facility] screening has identified you as FRAIL or [...] Strong:Four Ways to Beat the Frailty Risk https://www.[email or web address]/health/ygknsjjr-nzr-fwsyiohoaw/st ek-wsnjwm-mqmy- lfqw-sa-oktp-tct-bjsawby-ocxn Exam Physical Exam Vital Signs: Temp Pulse [...] 08/25/24 12 15 Signed By: 08/25/[address] [facility]03-16-2025 Progress note Author Mariajose Alfred [facility]Note Date/TimeMarch 2024 12:10pm[place] [address] Hospitalist Progress Note Signed Patient: Judith Land MR#: [id number] : 1945 Acct:[id number] Age/Sex: 79 / F Adm Date: 5 Loc: Room: [address] [place] [address] Type: ADM IN Attending Dr: Mariajose Alfred [...] place (said [place]), [place] Family members come and spend timewith her [...] Lactated Ringers IV 08/25/24 10:09 75 mls/hr .[id number] LLOYD Administration Lisinopril 20 mg 08/22/24 09:00 [...] <Electronically signed by Mariajose Alfred MD> 08/24/24 1210 [facility] Work Phone: 1(514) 311-225203-16-2025 [place] [address] Hospitalist Progress Note Signed Patient: Judith Land MR#: [id number] : 1945 Acct:[id number] Age/Sex: 79 / F Adm Date: 5 Loc: Room: [address] [place] [address] Type: ADM IN Attending Dr: Mariajose Alfred [...] not sure much about the place (said [place]), she [place] Family members come and spend timewith her [...] 02:00 08/24/24 06:01 Merrem IV Infused Q12H LLYOD Infusion Lactated Ringer's 1,000 mls @ 75 mls/hr 08/24/24 07:30 08/24/24 08:05 Lactated Ringers IV 08/25/24 10:09 75 mls/hr .[id number] LLOYD Administration Lisinopril 20 mg 08/22/24 09:00 [...] MD 08/24/24 10 36 Signed By: 08/24/[address] [place], [place] [address]560103-15-2025 Progress note Author Mariajose Alfred [facility] Date/TimeMarch 2024 9:26pm[place] [address] Hospitalist Progress Note Signed Patient: Judith Land MR#: [id number] : 1945 Acct:[id number] Age/Sex: 79 / F Adm Date: 5 Loc: Room: [address] [place] [address] Type: ADM IN Attending Dr: Mariajose Alfred [...] 08/21/24 09:00 08/23/24 09:19 Pantoprazole 40 Mg Tablet. PO 08/21/25 08:59 [...] <Electronically signed by Mariajose Alfred MD> 08/23/[address] [place] [address] Work Phone: [phone] 203-871403-15-2025 [place] [address] Hospitalist Progress Note Signed Patient: Judith Land MR#: [id number] : 1945 Acct:[id number] Age/Sex: 79 / F Adm Date: 5 Loc: Room: [address] [place] [address] Type: ADM IN Attending Dr: Mariajose Alfred [...] 08/21/24 09:00 08/23/24 09:19 Pantoprazole 40 Mg Tablet. PO 08/21/25 08:59 [...] Syringe IV-PUSH 08/21/25 05:59 Not Given QSHIFT [facility] A&P - Hospitalist Assessment/Plan (1) ANTONIO (acute [...] MD 08/23/24 12 51 Signed By: 08/23/242125 [facility]03-15-2025 Progress note Author Baljeet Rao [facility] Date/TimeMarch 2024 9:42[place], [place] [address] Neurology Progress Note Signed Patient: Judith Land MR#: [id number] : 1945 Acct:[id number] Age/Sex: 79 / F Adm Date: 5 Loc: Room: [address] [place] [address] Type: ADM IN Attending Dr: Mariajose Alfred MD Copies to: ~ Date of Service: 08/23/2024 Subjective Subjective Narrative: To be agitated frustrated and restless yesterday evening. The patient was notedto have a recommendation of as needed Seroquel by both Dr. Funetes and Dr. Monroe for agitation which I [...] 0853 Signed By: <Electronically signed by Baljeet Rao, > 08/23/24 0942 [facility] Work Phone: 1(544) 105-436003-15-2025 [place] [address] Neurology Progress Note Signed Patient: Judith Land MR#: [id number] : 1945 Acct:[id number] Age/Sex: 79 / F Adm Date: 5 Loc: Room: [address] [place] [address] Type: ADM IN Attending Dr: Mariajose Alfred [...] DO 5 0853 Signed By: 08/23/[address] [facility]03-15-2025 Consult note Author Ramsey Monroe [facility]Note Date/TimeMarch 2024 7:31[place], [place] [address] Physiatry (Rehab) Consult Note Signed Patient: Judith Land MR#: [id number] : 1945 Acct:[id number] Age/Sex: 79 / F Adm Date: 5 Loc: Room: [address] [place] [address] Type: ADM IN Attending Dr: Mariajose Alfred [...] negative unless noted below or in HPI [facility] Medical History (Updated 08/22/24 @ 18:15 by [...] chart, including current orders, allied health and oracle ebs consultant notes, labs/imaging and performed moss elements of exam and I formulated the plan of care and facilitated the medical decision making. I completed a substantive portion of this encounter, the medical decision makingportion of this note in its entirety, including Allied health note review, nursing note review, oracle ebs consultant note review,discussion with nursing and case management, and more than 50% of my time was spent on counseling and coordination of care, time spent 40 minutes Documented By: Ramsey Monroe MD 08/22/24 2856 Signed By: <Electronically signed by Ramsey Monroe MD> 08/23/24 0731 [facility] Work Phone: 1(740) 806-412503-15-2025 [place] [address] Physiatry (Rehab) Consult Note Signed Patient: Judith Land MR#: [id number] : 1945 Acct:[id number] Age/Sex: 79 / F Adm Date: 5 Loc: Room: [address] [place] [address] Type: ADM IN Attending Dr: Mariajose Alfred [...] negative unless noted below or in HPI [facility] Medical History (Updated 08/22/24 @ 18:15 by [...] chart, including current orders, allied health and oracle ebs consultant notes, labs/imaging and performed moss elements of exam and I formulated the plan of care and facilitated the medical decision making. I completed a substantive portion of this encounter, the medical decision makingportion of this note in its entirety, including Allied health note review, nursing note review, oracle ebs consultant note review,discussion with nursing and case management, and more than 50% of my time was spent on counseling and coordination of care, time spent 40 minutes Documented By: Ramsey Monroe MD 08/22/24 1734 Signed By: 08/23/[address] [facility]03-14-2025 Consult note Author Tony Fuentes [facility] HospitalNote Date/TimeMarch 2024 6:15[place] [address] Neurology Consult Note Signed Patient: Judith Land MR#: [id number] : 1945 Acct:[id number] Age/Sex: 79 / F Adm Date: 5 Loc: Room: [address] [place] [address] Type: ADM IN Attending Dr: Mariajose Alfred MD Copies to: DO Kavon Cramer MD Obaydah M Daromar, MD~ HPI Consult Date: 08/22/24 Cut Order Hand: Tony Fuentes DO [facility] Medical History (Updated 08/22/24 @ 18:15 by [...] Andrew Henson M.D.08/20/2024 9:48 PM Dictation Location: [place] [address] Therapy Recommendations Therapy Recommendations: OT Recommendations OT [...] <Electronically signed by Tony Fuentes DO> 08/22/24 [address] [facility] Work Phone: 1(347) 726-336603-14-2025 [place] [address] Neurology Consult Note Signed Patient: Judith Land MR#: [id number] : 1945 Acct:[id number] Age/Sex: 79 / F Adm Date: 5 Loc: Room: [address] [place] [address] Type: ADM IN Attending Dr: Mariajose Alfred MD Copies to: DO Kavon Cramer MD Obaydah M Daromar, MD~ HPI Consult Date: 08/22/24 Cut Order Hand: Tony Fuentes DO [facility] Medical History (Updated 08/22/24 @ 18:15 by [...] Andrew Henson M.D.08/20/2024 9:48 PM Dictation Location: [facility]- Therapy Recommendations Therapy Recommendations: OT Recommendations OT [...] DO 08/22/24 1235 Signed By: 08/22/[address] [facility]03-14-2025 Progress note Author Mariajose Alfred [facility] HospitalNote Date/TimeMarch 2024 2:56[place] [address] Hospitalist Progress Note Signed Patient: Judith Land MR#: [id number] : 1945 Acct:[id number] Age/Sex: 79 / F Adm Date: 5 Loc: 3T Room: [address] [place] [address] Type: ADM IN Attending Dr: Mariajose Alfred MD Copies to: ~ Date of Service: 08/22/2024 Subjective Subjective Narrative: Patient was seen and examined at bedside. She was moved to room 3030 for a private room. Patient was confused, [...] <Electronically signed by Mariajose Alfred MD> 08/22/24 8051 [facility] Work Phone: [phone]) 237-715703-14-2025 [place] [address] Hospitalist Progress Note Signed Patient: Judith Land MR#: [id number] : 1945 Acct:[id number] Age/Sex: 79 / F Adm Date: Loc: 3T Room: [address] [place] [address] Type: ADM IN Attending Dr: Mariajose Alfred MD Copies to: ~ Date of Service: 08/22/2024 Subjective Subjective Narrative: Patient was seen and examined at bedside. She was moved to room 3030 for a private room. Patient was confused, [...] 08/22/24 11 36 Signed By: 08/22/[address] [facility]03-13-2025 Progress note Author Mariajose Alfred [facility] HospitalNote Date/TimeMarch 2024 4:08[place] [address] Hospitalist Progress Note Signed Patient: Judith Land MR#: [id number] : 1945 Acct:[id number] Age/Sex: 79 / F Adm Date: 5 Loc: 3T Room: [address] [place] [address] Type: ADM IN Attending Dr: Mariajose Alfred [...] Dose Route Start Last Admin Trade Name Tavonq PRN Reason Stop Dose Admin Acetaminophen 1,000 [...] 1,000 Ml IV 08/21/24 14:19 75 mls/hr .[id number] LLOYD Administration Cefepime HCl 1 gm in [...] Tablet PO 08/21/25 08:59 1 mg DAILY [facility] Administration Ropinirole HCl 0.25 mg 08/21/24 00:50 [...] <Electronically signed by Mariajose Alfred MD> 08/21/24 1602 [facility] Work Phone: [phone]) 654-905803-13-2025 [place] [address] Hospitalist Progress Note Signed Patient: Judith Land MR#: [id number] : 1945 Acct:[id number] Age/Sex: 79 / F Adm Date: 5 Loc: Room: [address] [place] [address] Type: ADM IN Attending Dr: Mariajose Alfred [...] 1,000 Ml IV 08/21/24 14:19 75 mls/hr .[id number] LLOYD Administration Cefepime HCl 1 gm in [...] Alfred MD 08/21/24 11 18 Signed By: 08/21/[address] [place], [place] 1938003-13-2025 History and physical note Author Ebony Scott [facility]Note Date/TimeMarch 2024 6:11[place] [address] Hospitalist H&P Signed Patient: Judith Land MR#: [id number] : 1945 Acct:[id number] Age/Sex: 79 / F Adm Date: 5 Loc: Room: [address] [place] [address] Type: ADM IN Attending Dr: Lauro Garvey MD Copies to: MD Kavon Potter MD Paula G Smith, LOSS PREVENTION ANALYST~ HPI DATE OF EXAMINATION: 08/20/24 CHIEF COMPLAINT: [...] Pseudomonas aeruginosa. Blood cultures were also drawn [facility] and these are pending. She received 1 g of cefepime and 1 L saline bolus. She will be admitted as inpatient to the [facility] telemetry floor. Review of Systems Review of Systems Review of systems: A 10 point review of systems was obtained, negative unless noted in the HPI or below. [facility] Medical History (Updated 08/21/24 @ 00:36 by [...] Values Corrected WBC 7.9 X10E3/uL (3.8-11.6) 08/20/24 21: Uncorrected WBC Count 7.9 x10E3/uL (3.8-11.6) 08/20/24 21: RBC 4.16 x10E6/uL (3.60-5.00) 08/20/24 21:19 Hgb 13.1 g/dL (11.8-15.4) 08/20/24 21:19 Hct 38.4 % (34.0-46.4) 08/20/24 21: MCV 92.2 fl (80-100) 08/20/24 21: MCH 31.4 pg (24.7-34.3) 08/20/24 21: MCHC 34.1 g/dL (32.0-35.0) 08/20/24 21:19 RDW 14.6 % (11.9-15.3) 08/20/24 21:19 Plt Count 314 x10E3/uL (150-450) 08/20/24 21:19 MPV 9.4 fl (6.3-10.7) 08/20/24 21:19 Neut % (Auto) 48.3 % (.) 08/20/24 21:19 Lymph % (Auto) 34.8 % (.) 08/20/24 21:19 Nye % (Auto) 13.1 % (.) 08/20/24 21:19 Eos % (Auto) 2.1 % (.) 08/20/24 21:19 Baso % (Auto) 1.7 % (.) 08/20/24 21:19 Nucleat RBC Rel Count 0.2 /100 WBC (0-0.5) 08/20/24 21:19 Neut # (Auto) 3.8 x10E3/uL (1.8-7.7) 08/20/24 21:19 Lymph # (Auto) 2.7 x10E3/uL (1.00-4.8) 08/20/24 21:19 Nye # (Auto) 1.0 x10E3/uL (0.0-0.8) H 08/20/24 [...] 21:19 BUN 26 mg/dL (7-25) H 08/20/24 21: Creatinine 1.43 mg/dL (0.60-1.20) H 08/20/24 21:19 Est GFR (CKD-EPI) 37.541 mL/Min 08/20/24 21: Glucose 90 mg/dL (70-100) 08/20/24 21: Lactic Acid 0.9 mmol/L (0.5-1.9) 08/20/24 21: Calcium 11.5 mg/dL (8.6-10.3) H 08/20/24 21:19 Total Bilirubin 0.5 mg/dl (0.3-1.0) 08/20/24 21: AST 14 U/L (13-39) 08/20/24 21: ALT < 3 U/L (7-52) L 08/20/24 21: Alkaline Phosphatase 122 U/L (34-104) H 08/20/24 21: Total Protein 6.8 gm/dL (6.4-8.9) 08/20/24 21: Albumin 4.4 gm/dL (3.5-5.7) 08/20/24 21: Globulin 2.4 gm/dL 08/20/24 21: Albumin/Globulin Ratio 1.8 08/20/24 21: Urine Color Light-yellow (Yellow) 08/20/24 21:36 Urine Appearance Cloudy (Clear) A 08/20/24 21:36 Urine pH 6.0 (5.0-9.0) 08/20/24 21:36 Ur Specific [place] 1.014 (1.001-1.030) 08/20/24 21:36 Urine Protein Trace [...] Plan ANTONIO?current creatinine 1.43, spoke with nursing supervisor border department at the [facility] who found last creatinine on 08/14/2024 [...] (# of days): 3 Documented By: Ebony Scott, MIGUEL 08/20/24 5498 Signed By: <Electronically signed by MIGUEL Scott> 08/21/24 0048 <Electronically signed by Lauro Garvey MD> 08/21/24 0611 [facility] Work Phone: 1(422) 345-799703-13-2025 [place] [address] Hospitalist H&P Signed Patient: Judith Land MR#: [id number] : 1945 Acct:[id number] Age/Sex: 79 / F Adm Date: 5 Loc: Room: [address] [place] [address] Type: ADM IN Attending Dr: Lauro Garvey [...] will be admitted as inpatient to the [facility] telemetry floor. Review of Systems Review of Systems Review of systems: A 10 point review of systems was obtained, negative unless noted in the HPI or below. [facility] Medical History (Updated 08/21/24 @ 00:36 by [...] 08/20/24 21:19 MCHC 34.1 g/dL (32.0-35.0) 08/20/24 21: RDW 14.6 % (11.9-15.3) 08/20/24 21:19 Plt Count 314 x10E3/uL (150-450) 08/20/24 21:19 MPV 9.4 fl (6.3-10.7) 08/20/24 21:19 Neut % (Auto) 48.3 % (.) 08/20/24 21:19 Lymph % (Auto) 34.8 % (.) 08/20/24 21:19 [place]ye % (Auto) 13.1 % (.) 08/20/24 21:19 Eos % (Auto) 2.1 % (.) 08/20/24 21:19 Baso % (Auto) 1.7 % (.) 08/20/24 21:19 Nucleat RBC Rel Count 0.2 /100 WBC (0-0.5) 08/20/24 21:19 Neut # (Auto) 3.8 x10E3/uL (1.8-7.7) 08/20/24 21:19 Lymph # (Auto) 2.7 x10E3/uL (1.00-4.8) 08/20/24 21:19 Nye # (Auto) 1.0 x10E3/uL (0.0-0.8) H 08/20/24 [...] 08/20/24 21:19 Albumin 4.4 gm/dL (3.5-5.7) 08/20/24 21: Globulin 2.4 gm/dL 08/20/24 21: Albumin/Globulin Ratio 1.8 08/20/24 21:19 Urine Color Light-yellow (Yellow) 08/20/24 21:36 Urine Appearance Cloudy (Clear) A 08/20/24 21:36 Urine pH 6.0 (5.0-9.0) 08/20/24 21:36 Ur Specific [place] 1.014 (1.001-1.030) 08/20/24 21:36 Urine Protein Trace [...] 08/20/24 21:36 Assessment & Plan Assessment/Plan (1) ANTOINO (acute kidney injury): (2) Metabolic encephalopathy: (3) UTI (urinary tract infection): Plan ANTONIO?current creatinine 1.43, spoke with nursing supervisor border department at the [facility] who found last creatinine on 08/14/2024 [...] 3 Documented By: Ebony Scott APRN 08/20/24 0703 Signed By: 08/21/24 0048 08/21/[address] [facility]03-13-2025 Evaluation note* Diagnosis Onset Date Resolution Status Admit Date [facility] 10:48pmAKI (acute kidney injury)[facility] 2024 10:48pmAltered mental statusacuteUniversity [facility] 2024 10:48pmAnxietyacuteUniversity [facility] 2024 10:48pmHTN (hypertension)acute[facility] 2024 10:48pmHypercalcemiaacute August 20, 2024 10:48pmMetabolic encephalopathyacuteUniversity [facility] 2024 10:48pm Parkinsons diseaseacuteUniversity [facility] 2024 10:48pmUTI (urinary tract infection) [facility] 2024 10:48pm [facility] Work Phone: 1(527) 545-984603-13-2025 Evaluation note* Diagnosis Onset Date Resolution Status Admit Date Acute UTI inactiveUniversity [facility] 2024 10:48pmAKI (acute kidney injury)inactiveUniversity [facility] 2024 10:48pmAltered mental statusinactiveUniversity Hospitals [facility] 2024 10:48pmAnxietyinactive August 20, 2024 10:48pmHTN (hypertension)inactiveUniversity [facility] 2024 10:48pm HypercalcemiainactiveUniversity Hospitals [facility] 2024 10:48pmMetabolic encephalopathyinactive August 20, 2024 10:48pmParkinsons diseaseinactiveUniversity Hospitals [facility] 2024 10:48pmUTI (urinary tract infection)inactiveUniversity [facility] 2024 10:48pmFracture of left superior pubic ramusacuteMarch 2024 3:46pmImpaired mobility and activities of daily livingacuteUniversity [facility] 2024 3:46pmAcute UTIinactiveUniversity Hospitals [facility] 2024 3:46pmAnxietyinactiveUniversity [facility]als [facility] 2024 3:46pmHTN (hypertension)inactiveUniversity [facility] 2024 3:46pmMetabolic encephalopathyinactiveUniversity Hospitals [facility] 2024 3:46pm Parkinsons diseaseinactiveUniversity Hospitals [facility] 2024 3:46pmUTI (urinary tract infection) inactiveUniversity Hospitals [facility] 2024 3:46pm [facility] Work Phone: 1(555) 605-979003-05-2025 NoteCardiovascular Medicine [facility] SUBJECTIVE Chief Complaint Patient presents with Cardiac [...] Vitals reviewed. Constitutional: Appe (more content not included)...[facility]03-05-2025 NotePatient here for 6 mo follow [...] tremors. All other systems reviewed and are negative.[facility] 08-12-2024 Evaluation + Plan noteExtracted from:Title:FABIANO Post-operative Note---General SerenityAuthor:Yulissa Dietrich MD.Date:08/12/24 Plan Transfer/Discharge: Transfer/Discharge Discharge when meets criteria ( From PACU to floor ). Extracted from:Title:FABIANO Pre-operative NoteAuthor:Yulissa Dietrich MD.Date: 08/12/24 Plan Citizen Of [place] Society of Anesthesiologists (ASA) physical status classification: Class III. Anesthetic Preoperative Plan: Anesthesia General.[facility] 03-04-2025 Hospital Discharge instructions Patient Education 08/12/2024 10:26:35 Post Op Patient Instructions - FT (Custom) (CUSTOM) 08/08/2024 17:00:07 [place] - Home Care Instructions (Custom) [place], [place] [facility] OUTPATIENT SURGERY Home Care [...] not drive. Supa Owen DO [facility] [address] [place] [address] Reviewed: 09-16 Follow Up Care 08/06/2024 11:32:31 With:Supa Owen DO, ORT Address: [address] [place] [address]- When:08/25/2024 13:15:[address] [facility] 03-04-2025 NoteProgress Note-Physician Patient: JUDITH LAND [...] meets criteria ( From PACU to floor ).[facility] HospitalComment on above:Result Comment: Electronically Signed By: Serenity HERRERA, Yulissa Lott\.br\Date and Time Signed: 08/12/2510:30 [id number] NotePatient Education - Text [place], [place] [facility] OUTPATIENT SURGERY Home Care [...] not drive. Supa Owen DO [facility] [address] [place] [address] Reviewed: 09-16[facility]03-[facility] NoteProgress Note-Physician Patient: JUDITH LAND Age: 79 years Sex: Female : 1945 Associated Diagnoses: None Author: Supa Owen DO Postoperative Information Procedure: L wrist ORIF Preoperative Diagnosis: L distal rad /ulna fx. Postoperative Diagnosis: same. Performed by: Lexie. C.O.D. Audit Clerk: Ingrid. Specimens Removed: none. Prosthesis: Arthrex. . Estimated Blood Loss: 0 ml. Complications: None. Anesthesia type: General.[facility] HospitalComment on above:Result Comment: Electronically Signed By: Supa Owen DO\.br\Date and Time Signed: 08/12/24 10:14 [id number] NoteProgress Note-Physician Patient: JUDITH LAND Age: 79 years Sex: Female : 1945 Associated Diagnoses: None Author: Yulissa Dietrich MD Preoperative Information Anesthesia history: Patient history: No [...] constipation, # 40 cap(s), Refills(s) 0, Pharmacy: [facility]/pharmacy #[id number], 167, cm, 08/07/24 6:28:00 EST, Height/Length Dosing, 54.2, kg, 256:28:00 EST, Weight Dosing [place] 325 mg-5 mg oral tablet: See Instructions, [...] mg-20 mg Tab 1 tab(s), Oral, Daily [place] 325 mg-5 mg oral tablet See Instructions, [...] All Problems H/O emphysema / SNOMED CT 4839999717 / Confirmed High cholesterol / SNOMED CT 16962235 / Confirmed Hydronephrosis, right / SNOMED CT 51414399 / Confirmed (more content not included)...[facility] HospitalComment on above:Result Comment: Electronically Signed By: Serenity HERRERA, Yulissa Lott\.br\Date and Time Signed: 08/12/2506:43 [id number] History of Present illness Narrative* Daniela David [...] urinary tract infection ongoing. She was at [facility] and the discussion was that it did not warrant admission to the hospital. They are planning on going to the [place] [facility] of their primary care after this visit here today. PAST MEDICAL HISTORY: Past Medical History: Diagnosis Date COPD (chronic obstructive pulmonary disease) ([facility]/HCC) H/O splenectomy Hypertension ([facility]/HCC) Parkinson disease ([facility]/HCC) Recurrent UTI Ruptured spleen PAST SURGICAL HISTORY: [...] upon age and gender. Her neurologist from [facility] has deemed [place]individual [place] [facility] [place] such as this. We did outline the fact that we will need to define her current disease and she is going to the [facility]. We did explain to the [...] 08/07/2024 10:39 AM EST documented in this encounterSaint [facility]'s Hospital [facility] [id number] Hospital Discharge instructions Patient Education 08/03/2024 21:46:36 [...] Treatment for this condition includes: Antibiotic medicine. Oebc-esw-bimgtxb medicines to treat discomfort. Drinking enough water [...] Follow these instructions at home: Medicines Take yaqt-rif-jmdgzbr and prescription medicines only as told by [...] provider. Document Revised: 01/02/2021 Document Reviewed: 01/07/2021 [employer] Patient Education 2023 [employer]. Follow Up Care 08/03/2024 18:52:10 With:Kavon Sams Address: [address] [place] [address] Business (1) When:08/06/2024 21:45:46 Comments:Call the office [...] you develop any new or worsening symptoms. [facility] 02-23-2025 NoteED Patient Education Note Obstetrics [...] this condition includes: ??? Antibiotic medicine. ??? Zrxl-xpg-omtigvs medicines to treat discomfort. ??? Drinking enough [...] these instructions at home: Medicines ??? Take fgko-hmv-uyljlpg and prescription medicines only as told by [...] care provider. Make tracy (more content not included)...[facility] Evaluation + Plan noteExtracted from:Title:ED NoteAuthor:Demarco Beaver DODate:08/03/24 Acute UTI (N39.0: Urinary tr act infection, site not specified) Orders: cephalexin, 500 mg = 1 cap(s), Cap, Oral, Once, Stop date 08/03/24 21:45:00 EST, STAT, Start date 08/03/24 21:45:00 EST, 08/03/24 21:45:00 EST cephalexin, 500 mg = 1 cap(s), Oral, q12hr, X 5 day(s), # 10 cap(s), Refills(s) 0, Pharmacy: [facility]/pharmacy #[id number], 167, cm, 08/03/24 19:04:00 EST, Height/Length Dosing, 54.2, kg, 08/03/24 19:04:00 EST,Weight Dosing Basic Metabolic Panel CBC w/ Auto Diff CT Head or Brain w/o Contrast ED Cardiac Monitoring eGFR Extra Blue Tube Routine Capillary Glucose POC UA with Cult Rflx Urine Culture Diagnostic Tests Pending * Urine Culture 08/03/[address] [facility] [id number] Telephone encounter Note* Telephone Encounter - Gabbi Ennis - 07/30/2024 1:57 PM EST Form received via fax. Not really anything for RN's to complete. Sent via [employer] to Cherie. [facility]02-19-2025 Miscellaneous Notes* Telephone Encounter - Gabbi Ennis - 07/30/2024 1:57 PM EST Form received via fax. Not really anything for RN's to complete. Sent via [employer] to Cherie. * Telephone Encounter - Gabbi Ennis - 07/30/2024 1:[address] Owen office phoned - patient fell an broke her ulna and will need surgery. They would like to discuss with Cherie from PD standpoint if ok for surgery. [phone] She will also fax over a generic form for completion. Can either call or complete form. documented in this encounter[facility] Telephone encounter Note * Telephone Encounter - Gabbi Ennis - 07/30/2024 1:[address] Owen office phoned - patient fell an broke her ulna and will need surgery. They would like to discuss with Cherie from PD standpoint if ok for surgery. [phone] She will also fax over a generic form for completion. Can either call or complete form. [facility]02-19-2025 History of Present illness Narrative* Daniela David [...] She has now been referred to the [facility] on this. We will go ahead and [...] 08/03/2024 4:35 PM EST documented in this encounterSaint Mary's Hospital of [facility] [id number] Hospital Discharge instructions Follow Up Care 07/26/2024 15:54:15 With:Kavon Sams Address: [address] [place] [address] Business (1) When:Within 3 Day(s) [facility] [id number] Evaluation + Plan noteExtracted from:Title: ED NoteAuthor:Navjot BRIGGSSaeDate:07/26/24 Altered mental status (R41.8 2: Altered mental status, unspecified) Dehydration (E86.0: Dehydration) UTI (urinary tract infection) (N39.0: Urinary tract infection, site not specified) Orders: ciprofloxacin, 500 mg = 1 tab(s), Tab, Oral, Once, Stop date 07/26/24 18:25:00 EST, STAT, Start date 07/26/24 18:25:00 EST, 07/26/24 18:25:00 EST ciprofloxacin, 500 mg = 1 tab(s), Oral, BID, # 14 tab(s), Refills(s) 0, Pharmacy: [facility]/pharmacy #[id number], 167, cm, 07/26/24 16:07:00 EST, [...] Diagnostic Tests Pending * Urine Culture 07/26/[address] [facility] 02-13-2025 Hospital Discharge instructions Patient Education [...] by your health care provider. Medicines Take knkq-qzb-tiqjtwy and prescription medicines only as told by your health care provider. Ask your health care provider if the medicine prescribed to you: ?Requires you to avoid driving or using machinery. ?Can cause constipation. You may need to take these actions to prevent or treat constipation: ?Drink enough fluid to keep your urine pale yellow. ?Take bksm-bii-zodulho or prescription medicines. ?Eat foods that are [...] provider. Document Revised: 09/06/2020 Document Reviewed: 09/06/2020 Treatspace Patient Education 2023 [employer]. 07/24/2024 21:34:14 Cast or Splint Care, Adult [...] on part of yourbody. General instructions Take ikai-pqw-trkqjsh and prescription medicines only as told by [...] provider. Document Revised: 11/22/2021 Document Reviewed: 11/22/2021 Treatspace Patient Education 2023 [employer]. Follow Up Care 07/24/2024 18:45:49 With:Kavon Sams Address: [address] [place], [place] [id number] Business (1) When:07/27/2024 21:43:51 Comments:Call the office [...] new or worsening symptoms. With:Supa Owen Address: [address] [place] [phone]- Business (1) When:07/27/2024 21:32:22 Comments:Call office tomorrow to arrange for short-term follow-up for your distal radius fracture.Take pain medication as prescribed. [facility] 02-13-2025 NoteED Patient Education Note Orthopedics [...] your health care provider. Medicines ??? Take tcwn-ssc-anctdnc and prescription medicines only as told by your health care provider. ??? Ask your health care provider if the medicine prescribed to you: ? Requires you to avoid driving or using machinery. ? Can cause constipation. You may need to take these actions to prevent or treat constipation: ? Drink enough fluid to keep your urine (more content not included)...[facility]02-13-2025 Evaluation + Plan noteExtracted from:Title:ED NoteAuthor:Demarco Beaver DODate:07/24/24 Accidental fall (W19.XXXA: U nspecified fall, initial encounter) Wrist injury (S69.90XA: Unspecified injury of unspecified wrist, hand and finger(s), initial encounter) Orders: CT Head or Brain w/o Contrast CT Spine Cervical w/o Contrast ED Cardiac Monitoring NPO Diet Oxygen Therapy Pulse Oximetry Continuous Saline Lock Insert XR Wrist 3+ Views Right [facility] [id number] Instructions* Patient Instructions* Cherie Cedeno PA-C - [...] Parkinson's Disease Exercise Class at your local [facility] Voice - The Parkinson [employer] makes daily videos with voice exercises to help keep your voiceloud and clear. This is free on [employer] Handwriting - take a look at Fat Pens for tremor. This often will help people write easier I would like to see you back in about 7 months, before next winter. If you need assistance with scheduling, please call [phone], option 2 to speak with one of our scheduling team members. Movement Disorders Medication Schedule: Medications breakfast lunch bedtime ropinerole 0.25mg 1 azilect 1mg 1 sinemet CR 25/100mg 1 1 1 amantadine 100 mg 1 1 1 Return at or around: 01/13/25 If there are any concerns before your next visit, please call or you can send a message through NOWBOX. You can also now schedule and select appointments through NOWBOX. Cherie Cedeno PA-C documented [facility] History of Present illness Narrative* Cherie Cedeno [...] has strong family support with her d aughter and granddaughter. Movement Disorders Medications Schedule - [...] Parkinson's Disease since 2014. She presents to [facility] spring for care after many years [...] possibility of Parkinson's disease class at the [facility]. The following are the current problems noted [...] Parkinson's Disease Exercise Class at your local [facility] Voice - The Parkinson [employer] Project makes daily videos with voice exercises to help keep your voiceloud and clear. This is free on [employer] Handwriting - take a look at [employer] for tremor. This often will help people write easier I would like to see you back in about 7 months, before next winter. If you need assistance with scheduling, please call [phone], option 2 to speak with one of our scheduling team members. Interested in clinical research? Not currently Updated Movement Disorders Medication Schedule: Medications breakfast lunch bedtime ropinerole 0.25mg 1 azilect 1mg 1 sinemet CR 25/100mg 1 1 1 amantadine 100 mg 1 1 1 Return at or around: 01/13/25 Level of service : 71533 (40-68 min). Time spent 43 min on the day of service, which included preparing to see the patient, rhjg-cg-pkup patient care, completing clinical documentation, obtaining and/or [...] because declined all tablets documented in this encounterSelect [facility]25 NoteHNO ID: [id number] Author: CHERIE CEDENO PA-C Service: ? Author Type: Physician C.O.D. Audit Clerk Type: Progress Notes Filed: 07/16/2024 17:27 Note [...] with one or two (more content not included)...[facility]02-05-2025 NoteHNO ID: [id number] Author: GA BOB MA Service: ? Author Type: Building Services Technician Type: Progress Notes Filed: 07/16/2024 17:27 Note Text: Reason for WROTF Tablet to not get completed: Patient refused because declined all tablets[facility] History of Present illness Narrative* Cathie Gill NP - 04/21/2024 8:40 AM EST Images from the original note were not included. Chief Complaint Patient presents with Parkinson's Disease Insomnia Carpal Tunnel Subjective Judith Land, 79 y.o., female Patient presents today for a follow up to Parkinson's. She presents with a family member, Jaimee. She admits ED visit at [facility] recently for fall, states she was [...] CN II: Visual acuity is normal. Visual aclderon full to confrontation. CN III, IV, : [...] wrist extensors , wrist flexor 5/5 , preparation room worker strength 4/5. LUE Strength deltoid , biceps , triceps , wrist extensors , wrist flexor , preparation room worker strength 5/5. RLE Strength illopsoas, quadriceps, tibialis [...] knee reflex 2+. Dangelo's Sign negative. Coordination: Xqaiup-vb-huvk testing is normal Gait: Normal Review and summary of old records: Cardio note (Dr. Joe Luke) on 12/20/23: Abnormal stress test with EKG changes but no perfusion defects as per report. No cardiac complaints. COPD, hypertension, hyperlipidemia. Again discussed invasive ischemic evaluation with patient. Patient understands risks and declined evaluation. Continue aspirin, statin, beta-yao. Follow-up in 3 months MRI of the brain with and without contrast [place] [facility] [place]: No acute intracranial abnormality. No [...] the brain with and without contrast [place] [facility]: no acute intracranial pathology or [...] whether dyskinesia present, unspecified whether manifestations fluctuate ([facility]) It is my impression the patient has [...] some improvement. She is now following with [facility] movement clinic and is now taking [...] on the right including pain and decreased preparation room worker strength. She admits to previous use of [...] 04/21/2024 10:10 AM EST documented in this encounterSaint [id number] History of Present illness Narrative* Cherie Cedeno [...] that she is going to travel to [place] to see her friends, which prior to [...] Parkinson's Disease since 2014. She presents to [facility] spring for care after many years [...] or around: 11/21/24 Level of service : 91309 (40-54 min). Time spent 41 min on the day of service, which included preparing to see the patient, pdon-bb-zehr patient care, completing clinical documentation, obtaining and/or [...] of stress/struggling or is interrupted by their delinquency prevention officer. documented in this encounterSelect [facility]09-13-2024 NoteHNO ID: [id number] Author: CHERIE CEDENO PA-C Service: ? Author Type: Physician C.O.D. Audit Clerk Type: Progress Notes Filed: 02/22/2024 16:46 Note [...] that she is going to travel to [place] to see her friends, which prior to [...] b) mild slowing, c) (more content not included)...[facility]09-13-2024 NoteHNO ID: [id number] Author: GA BOB MA Service: ? Author Type: Building Services Technician Type: Progress Notes Filed: 02/22/2024 16:46 Note Text: Reason for WROTF Tablet to not get completed: Patient wishes to abort because of stress/struggling or is interrupted by their delinquency prevention officer.[facility]08-05-2024 Instructions* Patient Instructions* Cherie Cedeno PA-C - [...] or you can send a message through NOWBOX. You can also now schedule and select appointments through NOWBOX. Cherie Cedeno PA-C documented in this encounterSelect [facility]08-[facility] History of Present illness Narrative* Cherie Cedeno [...] the amplitude decrements starting after the 1st ikjy-sqp-wpzwr sequence. Arm Movements Right 1-Slight. a) the [...] Parkinson's Disease since 2014. She presents to [facility] spring for care after many years [...] or around: 02/14/24 Level of service : 75119 + 2 units 63525 ( > 55 min, [id number] for each 15 min > 40). Time spent 75 min on the day of service, which included preparing to see the patient, qxyd-ax-nxbg patient care, completing clinical documentation, obtaining and/or [...] Sincerely, Cherie Cedeno PA-C documented in this encounterSelect [facility]08-05-2024 NoteHNO ID: [id number] Author: CHERIE CEDENO PA-C Service: ? Author Type: Physician C.O.D. Audit Clerk Type: Progress Notes Filed: 01/14/2024 20:44 Note [...] c) the amplitude decrement (more content not included)...[facility]05-30-2024 Note* Addendum Note - David Valente MD - 11/08/2023 3:27 PM EDTAddended by: DAVID VALENTE on: 11/08/2023 03:27 PM Modules accepted: Orders [facility]05-30-2024 Miscellaneous Notes* Addendum Note - David Valente [...] they have returned. * Telephone Encounter - Leonora Cisneros - 11/08/2023 11:52 AM EDT Jaimee (pt' granddaughter) called to report this week pt's back to experiencing jerking movement. Pt started Amantadine 100 mg week of October 24 and first week medication helped dyskinesia. [phone] 09/13/23 DARRYL w/Dr. Valente documented in this encounterSelect [facility]05-30-2024 Note* Addendum Note - Dulce Melgar RN - 11/08/2023 2:48 PM EDTAddended by: DULCE MELGAR on: 11/08/2023 02:48 PM Modules accepted: Orders [facility]05-30-2024 Telephone encounter Note* Telephone Encounter - Dulce Melgar RN - 11/08/2023 2:44 PM EDT Spoke with Jaimee. Instructed her to increase the Amantadine to 100mg BID (to be taken with the first 2 daily doses of Sinemet). Jaimee verbalized understanding and is in agreement with POC. [facility]05-30-[facility] Telephone encounter Note* Telephone Encounter - David Valente MD - 11/08/2023 2:34 PM EDT Ok, if no side effects can she please increase to 100mg in morning and 100mg at noon? I will updatethe prescription. [facility]05-30-2024 Telephone encounter Note* Telephone Encounter - Dulce Melgar RN - 11/08/2023 12:53 PM EDT Spoke with Jaimee. Reports that pt is experiencing right sided dyskinesia (arm/shoulder). Pt has been taking 100mg Amantadine daily. She initially had relief from the dyskinesia but now they have returned. [facility] Telephone encounter Note* Telephone Encounter - CamachoLeonora Huntley - 11/08/2023 11:52 AM EDT Jaimee (pt' granddaughter) called to report this week pt's back to experiencing jerking movement. Pt started Amantadine 100 mg week of October 24 and first week medication helped dyskinesia. [phone] 09/13/23 FUV w/Dr. Valente [facility]05-08-2024 NoteHNO ID: [id number] Author: HIRAL ORTEGA APRN.HEALTHCARE ADMINISTRATOR Service: ? Author Type: Nurse Practitioner Type: [...] 100 mg 1 Level of service : 47240 (20-29 min). Time spent 25 min on [...] call with any questions. Sincerely, Hiral Ortega APRN.[facility]05-08-2024 Note* Addendum Note - Hiral Ortega APRN.CNP - 10/17/2023 5:29 PM EDTAddended by: HIRAL ORTEGA on: 10/17/2023 05:29 PM Modules accepted: Orders [facility]-08-2024 History of Present illness Narrative* Hiral Ortega [...] 100 mg 1 Level of service : 38831 (20-29 min). Time spent 25 min on [...] call with any questions. Sincerely, Hiral Ortega APRN.CNP documented in this encounterSelect [facility]05-08-2024 Miscellaneous Notes* Addendum Note - Hiral Ortega [...] still having this issue. Kathie Calvillo (Daughter) [phone] (Home Phone) documented in this encounterSelect [facility]05-08-2024 Telephone encounter Note * Telephone Encounter - Dulce Melgar RN - 10/17/2023 11:15 AM EDT Spoke with pt. Informed her that the MRI of the spine showed arthritis-related degenerative changesto the spine, but not serious. She is agreeable to discussing in more detail at next office visit. [facility]05-08-2024 Miscellaneous Notes* Telephone Encounter - Dulce Melgar [...] [facility] and would like a return call. [phone] documented in this encounterSelect [facility]05-08-2024 Telephone encounter Note * Telephone Encounter - David Valente MD - 10/17/2023 10:25 AM EDT Dear Team, Can we please let her know that the MRI of the spine showed arthritis-related degenerative changes to the spine, but not serious. We can discuss at her next in person visit and show her the images then. Thanks, -David [facility]05-08-2024 Telephone encounter Note* Telephone Encounter - Gabbi Ennis - 10/17/2023 10:15 AM EDT Judith phoned for results of MRI done on 10/06. She does not use [facility] and would like a return call. [phone] [facility]05-08-2024 Telephone encounter Note* Telephone Encounter - David Valente MD - 10/17/2023 9:43 AM EDT Dear Hiral, If she lives alone, I'd prefer the zonisamide. If she lives with someone who can monitor for the possible cognitive side effects of amantadine, I'd prefer amantadine. Thanks! -David [facility]04-30-2024 Telephone encounter Note* Telephone Encounter - Mila Jin - 10/09/2023 11:39 AM EDT Patients daughter calling to say there was medication discussed during last OV for dyskinesia. Theywant to know what it was and if it can be prescribed because she's still having this issue. Kathie Calvillo (Daughter) [phone] (Home Phone) [facility]04-28-[facility] History of Present illness Narrative* Laura Spicer [...] PATIENT PRESENTS WITH AN IMPLANTABLE OR ATTACHED EQUIPMENT SUPERINTENDENT: No RADIOLOGY DEPARTMENT: MR; Exam(s) Completed: Spine: Cervical spine, Thoracic spine, and Lumbar spine PERIPHERAL IV DATA: Not applicable SIGNED BY: RT Alec(R) October 07, 2023 5:53 PM documented in this encounterSelect [facility]04-04-2024 Instructions* Patient Instructions* David Valente MD - [...] > left sensory loss. 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 Patient's perception of importance for healthcare provider to let them know of research trials for which they may be eligible? Not at all important Return at or around: 10/13/23 If there are any concerns before your next visit, please call or you can send a message through NOWBOX. You can also now schedule and select appointments through NOWBOX. David Valente MD documented in this encounterSelect [facility]04-[facility]-20[facility] History of Present illness Narrative* David Valente [...] Suprapatellar present. Crossed adductor absent. Coordination Right: Cqsz-hr-dfcq normal.Left: Ruls-qc-tbvk normal. See UPDRS. Gait Casual gait: Hesitant [...] Spine, concern for right sided lumbar radicul[facility] (MRIs ordered at [facility], with radiology to administer anxiolytics) Neuropathy labwork In future, consider EMG right leg to work up right > left sensory loss. 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 Patient's perception of importance for healthcare provider to let them know of research trials for which they may be eligible? Not at all important Updated Parkinson's Medication Schedule: Medications breakfast lunch bedtime ropinerole 0.25mg 1 azilect 1mg 1 sinemet 25/100mg 1 1 1 Level of service : 73912 + 1 units 92900 ( > 75 min, [id number] for each 15 min > 60 min). Time spent 80 min on the day of service, which included preparing to see the patient, jxmj-da-ftid patient care, completing clinical documentation, obtaining and/or [...] Sincerely, David Valente MD documented in this encounterSelect [facility]24 Hospital Discharge instructions Patient Education 07/16/2023 15:44:31 [...] Consider working with a physical therapist or seeing eye dog trainer who can develop an exercise plan to help you gain muscle strength. General instructions Take glfu-ljz-okiqlls and prescription medicines only as told by [...] provider. Document Revised: 04/30/2022 Document Reviewed: 04/30/2022 Treatspace Patient Education 2022 [employer]. Follow Up Care 07/16/2023 11:34:57 With:Kavon Smas Address: [address] [place] [address] [place] [phone] Business (1) When:07/19/2023 15:32:[address] [facility]02-05-2024 Evaluation + Plan noteExtracted from: Title:ED NoteAuthor:Dom SZYMANSKI, JansenDate:07/16/23 Weakness (R53.1: Weakness) Diagnostic Tests Pending * Urine Culture 07/16/[address] [facility]01-13-2024 Hospital Discharge instructions Patient Education 06/23/2023 16:31:59 Weakness, Gexj-zr-Vjbw Weakness Weakness is a lack of strength. [...] about working with a physical therapist or seeing eye dog trainer to help you get stronger. General instructions Take tntt-lin-xamfhsf and prescription medicines only as told by [...] provider. Document Revised: 04/30/2022 Document Reviewed: 04/30/2022 Treatspace Patient Education 2022 [employer]. 06/23/2023 16:31:55 Urinary Tract Infection, Adult Urinary [...] Treatment for this condition includes: Antibiotic medicine. Bvsi-yrd-kncrsdv medicines to treat discomfort. Drinking enough water [...] Follow these instructions at home: Medicines Take hnjs-tii-lvytnsm and prescription medicines only as told by [...] provider. Document Revised: 01/07/2021 Document Reviewed: 01/07/2021 Treatspace Patient Education 2022 [employer]. Follow Up Care 06/23/2023 01:35:45 With:Dani HERRERA, JOANNA Kauffman Address: [address] When:1 to [address] [facility]01-13-2024 Evaluation + Plan noteExtracted from: Title:Consult Note NeurologyAuthor:Christi Hamm LPN, Lisa MDate:06/23/23 ASSESSMENT: 78-year-old woman with moderate to severe [...] but reportedly she has MRI images in [place] within the past few months that did [...] without dyskinesia, without mention of fluctuations) Extracted from:Title:Admission H & PAuthor:Kylie HERRERA, KristenDate:06/23/23 1. Right sided weakness (R53 .1: Weakness) Chronic issue, likely exacerbated by underlying weakness related to UTI in addition to Parkinsons disease. CT Head negative On home ASA, Statin. Patient reports prior hx TIAs. MRI Brain ordered but patient refuses unless it is an open MRI. Reports she just had an MRI in May at [facility]. Consult Neurology PT Eval ordered 2. [...] Outpatient PT She passed speech eval Extracted from:Title:ED NoteAuthor:Thea Stacy, Francispawel HDate:06/23/23 1. Weakness (R53.1: Weakness ) 2. Urinary tract infection (N39.0: Urinary tract infection, site not specified) 3. Elevated troponin (R79.89: Other specified abnormal findings of blood chemistry) Orders: ceftriaxone + Sodium Chloride 0.9% intravenous solution 50 mL, 1,000 mg = 1 EA, IV Piggyback, Once,Stop date 06/23/23 5:00:00 EST, Routine, Start date 06/23/23 5:00:00 EST, 100 mL/hr, Infuse over 30minute(s), 06/23/23 4:14:00 EST Sodium Chloride 0.9% intravenous solution 1,000 mL, 1,000 mL, IV, 125 mL/hr, Routine, Start date 06/23/23 4:14:00 EST, 8 hour(s), Total volume (mL): 1,000, 56.3 kg, 1.62, m2 Automated Diff Basic Metabolic Panel Blood Culture Charcoal Blood Culture Charcoal CBC w/ Auto Diff [place] Stroke Scale Communication Order Physician to Nursing [...] Urine Culture 06/23/[address] [facility] noteNo assessment information available [facility] Work Phone: Evaluation note* Diagnosis Hyperreflexia- Primary [...] changes Memory loss [facility] Spinal stenosis of cervical region Spinal stenosis in cervical region [facility] Diagnosis Abnormal posture [facility] Diagnosis Spinal stenosis of lumbar region with neurogenic claudication Spinal stenosis, lumbar region, with neurogenic claudication [facility] Diagnosis Parkinson's disease with dyskinesia and fluctuating manifestations (HCC)- Primary [facility] Diagnosis Parkinson's disease with dyskinesia and fluctuating manifestations (HCC)- Primary [facility] Diagnosis Parkinson's disease with dyskinesia and fluctuating manifestations (HCC) [facility] Diagnosis Parkinson's disease with dyskinesia and fluctuating manifestations (HCC) [facility] Diagnosis Parkinson's disease with dyskinesia and fluctuating manifestations (HCC)- Primary [facility] Diagnosis Parkinson's disease with dyskinesia and fluctuating manifestations (HCC)- Primary [facility] Diagnosis Parkinson's disease with dyskinesia and fluctuating manifestations (HCC) [facility]* Diagnosis Parkinson's disease, unspecified whether [...] of cerebral infarction [facility] Diagnosis Parkinson's disease, unspecified whether dyskinesia present, unspecified whether manifestations fluctuate (CMS/HCC)- Primary RLS (restless legs syndrome) Restless legs syndrome (RLS) Cerebral infarction, chronic Transient ischemic attack (TIA), and cerebral infarction without residual deficits Other chronic pain Carpal tunnel syndrome of right wrist [facility]* Diagnosis Parkinson's disease with dyskinesia and fluctuating manifestations (HCC)- Primary Anxiety disorder due to known physiological condition Anxiety state, unspecified Hypophonia with hoarseness [facility] this encounter [facility] Diagnosis Right wrist pain- Primary Pain in joint, forearm Closed Colles' fracture of right radius, initial encounter Other closed fracture of distal end of right ulna, initial encounter Parkinson's disease with dyskinesia, unspecified whether manifestations fluctuate ([facility] [facility]) Underweight [facility]* Diagnosis Right wrist pain- Primary Pain in joint, forearm Closed Colles' fracture of right radius with routine healing Other closed fracture of distal end of right ulna with routine healing, subsequent encounter [facility] this encounter [facility]* Diagnosis Onset Date Resolution Status Admit Date Acute UTI acuteMarch 2024 10:48pmAltered mental statusacuteMarch 2024 10:48pm [facility] Work Phone: Evaluation note* Diagnosis Right wrist pain- Primary Pain in joint, forearm Pelvic pain Other closed intra-articular fracture of distal end of right radius with routine healing, subsequent encounter Closed fracture of superior ramus of left pubis, initial encounter (CMS/HCC) documented in this encounter [facility]* Diagnosis Closed fracture of superior ramus of left pubis, initial encounter (CMS/HCC)- Primary documented in this encounter [facility] HealthcareEvaluation note* Diagnosis Closed fracture of superior [...] of weight Stage 3b chronic kidney disease (CMS-HCC) Parkinson's disease, unspecified whether dyskinesia present, unspecified whether manifestations fluctuate (HCC) Primary hypertension Unspecified essential hypertension Hemiplegia, unspecified affecting right dominant side (HCC) Bilateral lower extremity edema documented in this encounter [facility]* Diagnosis Parkinson's disease with dyskinesia and fluctuating manifestations (HCC)- Primary Slow transit constipation Gait instability Abnormality of gait Fear of falling [facility] Diagnosis Parkinson's disease, unspecified whether dyskinesia present, unspecified whether manifestations fluctuate (HCC) documented in [facility]* Diagnosis Parkinson's disease without dyskinesia or fluctuating manifestations (HCC)- Primary Stage 2 chronic kidney disease Primary insomnia Persistent disorder of initiating or maintaining sleep Neuropathy Mononeuritis of unspecified site Chronic obstructive pulmonary disease with acute lower respiratory infection (HCC) Chronic diastolic congestive heart failure (HCC) Primary hypertension Unspecified essential hypertension Constipation, unspecified constipation type Hypokalemia Hypopotassemia Stage 3b chronic kidney disease (CMS-HCC) RLS (restless legs syndrome) Restless legs syndrome (RLS) Gastroesophageal reflux disease without esophagitis Esophageal reflux Generalized anxiety disorder Generalized anxiety disorder documented in this encounter [facility] HealthcareEvaluation note* Diagnosis Parkinson's disease without dyskinesia or fluctuating manifestations (HCC)- Primary Constipation, unspecified constipation type Stage 3b chronic kidney disease (CMS-HCC) Primary hypertension Unspecified essential hypertension Bilateral lower extremity edema Chronic diastolic congestive heart failure (HCC) documented in this encounter [facility] Author Connor [facility] Date/TimeSeptember 2024 5:11am [place] [address] Hospitalist H&P Signed Patient: Judith Land MR#: [id number] : 1945 Acct:[id number] Age/Sex: 80 / F Adm Date: 5 Loc: Room: [address] [place] [address] Type: ADM IN Attending Dr: Connor Dumont DO Copies to: QUEENIE Van, ~ HPI DATE OF EXAMINATION: 03/02/25 CHIEF COMPLAINT: Hallucinations and acute confusion. HISTORY OF PRESENT ILLNESS: This is a 80-year-old woman with Parkinson's disease who came to the emergency room because of severe confusion and hallucinations. She is saying things that do not make sense. She was talking to alfonzo and her who had . She was accompanied in the emergency room by her daughter.3 days ago, on Sunday, they took the patient to urgent care when it was felt that she was developing a UTI. Urgent care prescribed Keflex. But the patient did not improve over the weekend and had theworsening confusion and hallucinations. Right now the urine culture from that urgent care visit on Sunday is growing Pseudomonas but the sensitivities are not back yet. The patient had a hospital stay in December of this year due to hypertensive emergency. She was also dehydrated at that time. She also had a hospital stay inMay of this year for aspiration pneumonia. Vivien had hospital stay in August of this year due to urinary tract infection with Pseudomonas. Ciprofloxacin andLevaquin would have worked on that Pseudomonas. After that she went to the [address] [place] [address] for acute rehab. In the room right now the patient is very pleasantly confused at 4:00 in the morning. Her daughter is at the bedside. When I asked the patient to hold out her hand so I can assess her for tremor she holds her legs up. She babbles mostly about nonsense things and has difficulty following my commands. But withsome effort she is redirectable. Overall she does clinically look dehydrated. She has so much acute confusion that I do not think she could complain about theUTI even if she was having active UTI symptoms. Review of Systems Review of Systems Review of systems: A 10 point review of systems is negative except as mentioned above in the history of present illness or elsewhere in this H&P. Symptom review is providedby the patient's daughter as the patient himself has no insight into her currentcondition. 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 Family History Mother Stroke Father Cancer Lung Son Cancer Lymphoma Social History Smoking Status: Former smoker Tobacco Type: cigarettes Substance Use Type: None Meds Medications and Allergies Allergies Sulfa (Sulfonamide Antibiotics) Allergy (Verified 03/02/25 02:05) Difficulty Breathing sulfamethoxazole (From Bactrim) Allergy (Verified 03/02/25 02:05) Difficulty Breathing trimethoprim (From Bactrim) Allergy (Verified 03/02/25 02:05) Difficulty Breathing Home Medications ropinirole 0.25 mg tablet 0.5 mg PO QHS 10/28/24 [History Confirmed 02/27/25] diltiazem HCl 180 mg capsule,extended release 24 hr (Cardizem CD) 180 mg PO DAILY #30 caps 11/02/24[Rx Confirmed 02/27/25] alprazolam 1 mg tablet 1 mg PO HS 12/15/24 [History Confirmed 02/27/25] aspirin 81 mg tablet 81 mg PO DAILY #30 tabs 12/18/24 [Rx Confirmed 02/27/25] hydralazine 50 mg tablet 50 mg PO BID #60 tabs 12/18/24 [Rx Confirmed 02/27/25] polyethylene glycol 3350 17 gram oral powder packet (HealthyLax) 17 g PO DAILY #30 ea 12/18/24 [Rx Confirmed 02/27/25] quetiapine 25 mg tablet 25 mg PO QHS 30 days #30 tabs 12/18/24 [Rx Confirmed 02/27/25] sennosides 8.6 mg tablet (Senna Lax) 17.2 mg (2 x 8.6 mg) PO BID PRN constipation #60 tabs 12/18/24[Rx Confirmed 02/27/25] rasagiline 1 mg tablet 1 mg PO DAILY 30 days #30 tabs 01/14/25 [Rx Confirmed 02/27/25] amantadine HCl 100 mg tablet 100 mg PO TID 01/29/25 [History Confirmed 02/27/25] carbidopa 10 mg-levodopa 100 mg tablet (Sinemet) 1 tab PO QID 01/29/25 [History Confirmed 02/27/25] cephalexin 500 mg capsule 500 mg PO TID 7 days #21 caps 02/27/25 [Rx Confirmed 02/27/25] docusate sodium 100 mg capsule 100 mg PO TID PRN 02/27/25 [History Confirmed 02/27/25] potassium chloride 20 mEq tablet,extended release(part/cryst) 20 meq PO BID 02/27/25 [History Confirmed 02/27/25] spironolactone 25 mg tablet 25 mg PO QAM 02/27/25 [History Confirmed 02/27/25] Exam Physical Exam Vital Signs: Temp Pulse Resp BP Pulse Ox O2 Del Method 97.7 F 78 20 167/90 H 93 L Room Air 03/02/25 02:40 03/02/25 04:00 03/02/25 02:40 03/02/25 04:00 03/02/25 04:00 03/02/25 04:00 Narrative: GEN: With moderate amount of metabolic encephalopathy. Patient is severely underweight with a weight of 42.8 kg and a BMI of 15 and very thin extremities with muscle wasting. Head: Normal Cephalic, Atraumatic. Eyes: Conjunctiva and sclera clear bilaterally. EOMI. Nose: External nose and nares normal bilaterally. Mouth: Lips and tongue normal. Mucosal membranes are dry suggesting dehydration. Neck: No JVD. No thyromegaly. No lymphadenopathy. Lungs: Clear to auscultation bilaterally, no wheezing, no crackles. Heart: Regular rate and rhythm, no murmurs, rubs, or gallops. Abdomen: Soft, normal bowel sounds, no rigidity, guarding, or acute peritoneal signs. Extremities: No swelling or cords in the calves bilaterally, no edema in the ankles bilaterally. Skin: No systemic rashes or lesions. Psychiatric: Acutely confused. Difficulty following commands. Neuro: Moderate cogwheeling tremor is present. Results - Hospitalist H&P Lab Results Labs: Laboratory Last Values Corrected WBC 6.3 X10E3/uL (3.8-11.6) 03/02/25 02:10 Uncorrected WBC Count 6.3 x10E3/uL (3.8-11.6) 03/02/25 02:10 RBC 4.38 x10E6/uL (3.60-5.00) 03/02/25 02:10 Hgb 13.4 g/dL (11.8-15.4) 03/02/25 02:10 Hct 39.7 % (34.0-46.4) 03/02/25 02:10 MCV 90.7 fl (80-100) 03/02/25 02:10 MCH 30.6 pg (24.7-34.3) 03/02/25 02:10 MCHC 33.8 g/dL (32.0-35.0) 03/02/25 02:10 RDW 14.7 % (11.9-15.3) 03/02/25 02:10 Plt Count 274 x10E3/uL (150-450) 03/02/25 02:10 MPV 9.5 fl (6.3-10.7) 03/02/25 02:10 Neut % (Auto) 45.0 % (.) 03/02/25 02:10 Lymph % (Auto) 31.7 % (.) 03/02/25 02:10 Nye % (Auto) 15.1 % (.) 03/02/25 02:10 Eos % (Auto) 7.2 % (.) 03/02/25 02:10 Baso % (Auto) 1.0 % (.) 03/02/25 02:10 Nucleat RBC Rel Count 0.1 /100 WBC (0-0.5) 03/02/25 02:10 Neut # (Auto) 2.8 x10E3/uL (1.8-7.7) 03/02/25 02:10 Lymph # (Auto) 2.0 x10E3/uL (1.00-4.8) 03/02/25 02:10 Nye # (Auto) 1.0 x10E3/uL (0.0-0.8) H 03/02/25 02:10 Eos # (Auto) 0.5 x10E3/uL (0.0-0.45) H 03/02/25 02:10 Baso # (Auto) 0.1 x10E3/uL (0.0-0.2) 03/02/25 02:10 Monocyte Dist Width 17.43 % (0.00-20.00) 03/02/25 02:10 Platelet Estimate Normal (Normal) 03/02/25 02:10 Large Platelets Slight 03/02/25 02:10 Plt Morphology Comment N/A 03/02/25 02:10 RBC Morphology N/A 03/02/25 02:10 Poikilocytosis Moderate 03/02/25 02:10 Crenated Cell Moderate 03/02/25 02:10 PHA Creatinine Clear 25.47 03/02/25 02:10 Sodium 138 mmol/L (136-145) 03/02/25 02:10 Potassium 4.2 mmol/L (3.5-5.1) 03/02/25 02:10 Chloride 106 mmol/L (98-107) 03/02/25 02:10 Carbon Dioxide 25.9 mmol/L (21.0-31.0) 03/02/25 02:10 Anion Gap 10.3 mEq/L (6.0-15.0) 03/02/25 02:10 BUN 24 mg/dL (7-25) 03/02/25 02:10 Creatinine 1.21 mg/dL (0.60-1.20) H 03/02/25 02:10 Est GFR (CKD-EPI) 45.590 mL/Min 03/02/25 02:10 Glucose 98 mg/dL (70-100) 03/02/25 02:10 Calcium 11.6 mg/dL (8.6-10.3) H 03/02/25 02:10 Total Bilirubin 0.5 mg/dl (0.3-1.0) 03/02/25 02:10 AST 9 U/L (13-39) L 03/02/25 02:10 ALT < 3 U/L (7-52) L 03/02/25 02:10 Alkaline Phosphatase 129 U/L (34-104) H 03/02/25 02:10 Total Creatine Kinase 21 U/L (30-223) L 03/02/25 02:10 Troponin I High Sens 41 ng/L (0-15) H 03/02/25 02:10 Total Protein 6.8 gm/dL (6.4-8.9) 03/02/25 02:10 Albumin 4.5 gm/dL (3.5-5.7) 03/02/25 02:10 Globulin 2.3 gm/dL 03/02/25 02:10 Albumin/Globulin Ratio 2.0 03/02/25 02:10 Assessment & Plan Assessment/Plan (1) Cystitis: (2) Pseudomonas urinary tract infection: (3) Metabolic encephalopathy: (4) Parkinsons disease: (5) Sleep-wake cycle disorder: (6) Acute delirium: (7) COPD (chronic obstructive pulmonary disease): (8) Muscle wasting: (9) Cachexia: (10) Severe protein-calorie malnutrition: (11) Hypercalcemia: Plan Assessment: Acute bacterial cystitis, without hematuria. Pseudomonas urinary tract infection. Acute metabolic encephalopathy. Sleep-wake cycle derangement. Exacerbation of encephalopathy in a patient with Parkinson's disease. COPD which is stable and not exacerbated. Possibility of aspiration pneumonia, based on a portable x-ray done in the emergency room. Muscle wasting, cachexia, and severe protein calorie malnutrition. Dehydration. Plan: Hospital admission, inpatient status. I continue IV antibiotics with cefepime. Awaiting results from urine culture, which was obtained on Sunday. Consult to physical therapy, Occupational Therapy, and speech therapy. Maximum efforts to restore normal sleep-wake cycle to environmental measures. Florastor to prevent against antibiotic associated diarrhea. Patient may require TeleSitter for safety and may require bedside sitter if she becomes with more extreme delirium. I continue the medications she takes at home. DVT prophylaxis with heparin 5000 units subcutaneously every 12 hours. Consult to dietitian given severe protein calorie malnutrition. The patient is dehydrated so we will provide 1 L of IV fluids. IP vs OBS Justification Based on differential dx, clinical care plan, and risk of adverse events, if untreated, in my clinical judgement this patient requires an acute care setting as: INPATIENT because of an expectation ofan over 2 midnight stay. Estimated length of stay (# of days): 3 Documented By: Connor Dumont DO [id number] Signed By: <Electronically signed by Connor Dumont DO> 03/02/25 0511 [facility] Work Phone: Hospital course Narrative No data available for this section [facility] Additional Instructions SNF TO MANAGE: PT/OT to eval and treat Monitor VS per protocol Monitor Urinary assessment and for increased signs of infection--UTI, Cystitis Monitor Neuro. assessment--Encephalopathy, Parkinson's Disease, Delirium Monitor labs as needed--Hypercalcemia Use thera works after voiding Empty bladder fully when voiding Dressing change every 3 days--Mepilex border foam to Coccyx for added protection Turn and reposition every 2 hours Dietitian recommendations--Ensure Plus, 1 container, TID with meals Maintain high risk fall precautions [facility] Work Phone: Progress note No data available for this section [facility] Summary Purpose Family History No Family History Records Found Relationship Condition Age at Onset Recorded Date/T dorys mother Cerebrovascular accident (CVA) Unknown fatherMalignant neoplasmUnknownsonMalignant neoplasmUnknown Advance Directives No Advanced Directives Records Found [...] 10:48pm Fracture of left superior pubic ramus [facility] 2024 3:46pm Impaired mobility and activities of [...] Parkinsons disease January 29, 2025 9: 50am Chief Complaint Admit Date Infection December 14, 2024 7:54a m Confusion December 15, 2024 1:57p m uti February 27, 2025 12:49pm Reason for Visit Admit Date Acute confusion December 15, 2024 1:57p m [...] January 29, 2025 9: 50am Reason for Visit Admit Date Acute confusion December 15, 2024 1:57p m [...] Parkinsons disease January 29, 2025 9: 50am Acute UTI February 27, 2025 12:49pm Chief Complaint Admit Date Infection December 14, 2024 7:54a m Confusion December 15, 2024 1:57p m uti February 27, 2025 12:49pm R30. February 27, 2025 12:50pm Dehydrated, unable to sleep March 022024 4:01am Reason for Visit Admit Date Acute confusion December 15, 2024 1:57p m [...] Parkinsons disease January 29, 2025 9: 50am Acute UTI February 27, 2025 12:49pm Acute delirium March 02, 2025 4:01am Cachexia March 02, 2025 4:01am COPD (chronic obstructive pulmonary dise ase) March 02, 2025 4:01am Cystitis March 02, 2025 4:01am Hypercalcemia March 02, 2025 4:01am Metabolic encephalopathy March 02, 2025 4:01am Muscle wasting March 02, 2025 4:01am Parkinsons disease March 02, 2025 4:01am Pneumonia March 02, 2025 4:01am Pseudomonas urinary tract infection Feb 4:01am Severe protein-calorie malnutrition Feb 4:01am Sleep-wake cycle disorder February 4:01am Reason for Referral SpecialtyDiagnoses / ProceduresReferred By ContactReferred To Contact Diagnoses Parkinson's disease with dyskinesia and fluctuating manifestations (HCC) Procedures PROVIDER ORDERED FOLLOW UP OFFICE/OUTPATIENT NEW HIGH MDM 60 MINUTES Cherie Cedeno PA-C [address] [place] [address] Referral IDStatusReasonStart DateExpiration DateVisits RequestedVisits [id number] PCP Requested Referral [id number] / ProceduresReferred By ContactReferred To Contact Diagnoses Parkinson's disease, unspecified whether dyskinesia present, unspecified whether manifestations fluctuate (HCC) Procedures PROVIDER ORDERED FOLLOW UP OFFICE/OUTPATIENT NEW HIGH MDM 60 MINUTES David Valente MD [address] [place] [address] Referral IDStatusReasonStart DateExpiration DateVisits RequestedVisits [id number] PCP Requested Referral [id number] / ProceduresReferred By ContactReferred To ContactMR IMAGING Diagnoses Spinal stenosis of lumbar region with neurogenic claudication Procedures MRI LUMBAR SPINE WO IVCON MRI SPINAL CANAL LUMBAR W/O CONTRAST MATERIAL David Valente MD [address] [place] [address] Mr [facility] [place] [address] Referral IDStatusReasonStart DateExpiration DateVisits RequestedVisits [id number] Auto-Generated Referral /[id number] / ProceduresReferred By ContactReferred To ContactMR IMAGING Diagnoses Abnormal posture Procedures MRI THORACIC SPINE WO IVCON MRI SPINAL CANAL THORACIC W/O CONTRAST MATRL David Valente MD [address] [place] [address] Mr [facility] [place] [address] Referral IDStatusReasonStart DateExpiration DateVisits RequestedVisits [id number] Auto-Generated Referral [id number] / ProceduresReferred By ContactReferred To ContactMR IMAGING Diagnoses Spinal stenosis of cervical region Procedures MRI CERVICAL SPINE WO IVCON MRI SPINAL CANAL CERVICAL W/O CONTRAST David Andrea MD [address] [place], [place] [address] [place] [address] Mr [facility] [place] [address] Referral IDStatusReasonStart DateExpiration DateVisits RequestedVisits [id number] Auto-Generated Referral / Additional Source Comments INFORMATION SOURCE (unrecogn ized section and content) DATE CREATED AUTHOR 11/30/2017 [facility] DATE CREATED AUTHOR AUTHOR'S ORGANIZ ATION 10/13/[address] [facility] DATE CREATED AUTHOR AUTHOR'S ORGANIZ ATION 10/19/2023 [facility] DATE CREATED AUTHOR AUTHOR'S ORGANIZ ATION 12/02/2023 [facility] DATE CREATED AUTHOR AUTHOR'S ORGANIZ ATION 07/28/2024 [facility] DATE CREATED AUTHOR AUTHOR'S ORGANIZ ATION 07/29/2024 [facility] DATE CREATED AUTHOR AUTHOR'S ORGANIZ ATION 08/04/2024 [facility] DATE CREATED AUTHOR AUTHOR'S ORGANIZ ATION 08/16/2024 [facility] DATE CREATED AUTHOR AUTHOR'S ORGANIZ ATION 10/30/2024 [facility] DATE CREATED AUTHOR AUTHOR'S ORGANIZ ATION 12/14/2024 [facility] DATE CREATED AUTHOR AUTHOR'S ORGANIZ ATION 01/03/[address] [facility] DATE CREATED AUTHOR AUTHOR'S ORGANIZ ATION 02/21/2025 [facility] DATE CREATED AUTHOR AUTHOR'S ORGANIZ ATION 03/19/2025 [facility] DATE CREATED AUTHOR AUTHOR'S ORGANIZ ATION 03/24/2025 [facility] Care Teams (unrecognized sec tion and content) Team Status: Active Member Role Status Dates KIARA VanC Primary Care Provider Active Team Status: Inactive Member Role Status Dates Kavon Sams MD Attending Provider Active Sta rt: October 23, 2024 End: October 23, 2024 Team Status: Inactive Member Role Status Dates Trish Christensen MD Admit Provider Active Start: October 28, 2024 End: November 02, 2024Ranatalia Christensen MDAttlit ProviderActiveStart: October 28, 2024 End: November 02, 2024PHYSICIAN NO FAMILYPrimary Care ProviderActiveStart: October 28, 2024 End: November 02, 2024Katherine SciarappaOther ProviderActiveStart: October 28, 2024 End: November 02, 2024Nickaylynn Lewis PhDOther ProviderActiveStart: October 28, 2024 End: November 02, 2024Christina Vasquez DOOther ProviderActiveStart: October 28, 2024 End: November 02, 2024Stang Louise MDOther ProviderActiveStart: October 28, 2024 End: November 02christiano Rao DOOther ProviderActiveStart: October 28, 2024 End: November 02giancarlo Fuentes DOOther ProviderActiveStart: October 28, 2024 End: November 02kyler Farris , APRNOther ProviderActiveStart: October 28, 2024 End: November 02oneil Gill NP-COther ProviderActiveStart: October 28, 2024 End: November 02, 2024Shaun Jackson APRN-FNP-COther ProviderActiveStart: October 28, 2024 End: November 02, 2024 Team Status: Active Member Role Status Dates Trish Christensen MD Admit Provider Active Start: October 29, 2024 Trish Christensen MDOther ProviderActiveStart: October 29, 2024 Kavon Sams , MDPrimary Care ProviderActiveStart: October 29, 2024 José Antonio Lerma DOAttending ProviderActiveStart: October 29, 2024 José Antonio Lerma DOOther ProviderActiveStart: October 29, 2024 Team Status: Inactive Member Role Status Dates Damaso Charlton DO Emergency Provider Active St art: December 14, 2024 End: December 14, 2024Linda Minaya , MDPrimary Care ProviderActiveStart: December 14, 2024 End: December 14, 2024 Team Status: Active Member Role Status Dates Jen Downing MD Emergency Provider Active Start: December 15, 2024 Daniela Jaramillo , PASTRY SOUS CHEF-CPrimary Care ProviderActiveStart: December 15, 2024 Faith Mccoy MDAdmit ProviderActiveStart: December 15, 2024 Faith Mccoy MDAttending ProviderActiveStart: December 15, 2024 Team Status: Active Member Role Status Dates Kavon Sams MD Primary Care Provider Active Team Status: Inactive Member Role Status Dates Kavon Sams MD Primary Care Provider Active Cathie Gill NP-CAttending ProviderActiveTeam MemberRelationshipSpecialty Start DateEnd Date Kavon Sams Md PCP - Generalmily Tadfpxvs67/13/20 Kavon Sams MD Physicianmily Medicine02/20/20Team MemberRelationshipSpecialtyStart DateEnd Date Kavon Sams Md PCP - GeneralFamily Rjkaenzw33/13/20 Kavon Sams MD Physicianmily Medicine02/20/20Team MemberRelationshipSpecialtyStart DateEnd Date Kavon Sams Md PCP - GeneralFamily Azqrhjcx62/13/20 Kavon Sams MD PhysicianFamily Medicine02/20/20Team MemberRelationshipSpecialtyStart DateEnd Date Kavon Sams Md PCP - GeneralFamily Dvduiggm19/13/20 Kavon Sams MD PhysicianFamily Medicine02/20/20Team MemberRelationshipSpecialtyStart DateEnd Date Kavon Sams Md PCP - GeneralFamily Goknjqle97/13/20 Kavon Sams MD PhysicianFamily Medicine02/20/20Team MemberRelationshipSpecialtyStart DateEnd Date Kavon Sams Md PCP - GeneralFamily Pwreijgi62/13/20 Kavon Sams MD Physicianmily Medicine02/20/20Team MemberRelationshipSpecialtyStart DateEnd Date Kavon Sams Md PCP - GeneralFamily Zpleysix73/13/20 Kavon Sams MD Physicianmily Medicine02/20/20Team MemberRelationshipSpecialtyStart DateEnd Date Kavon Sams Md PCP - Generalmily Ejusqbmy95/13/20 Kavon Sams MD Physicianmily Medicine02/20/20am MemberRelationshipSpecialtyStart DateEnd Date Kavon Sams Md PCP - GeneralFamily Gmcvzrlr11/13/20 Kavon Sams MD PhysicianFamily Medicine02/20/20Team MemberRelationshipSpecialtyStart DateEnd Date Kavon Sams Md PCP - GeneralFamily Rvbcvbww23/13/20 Kavon Sams MD Physicianmily Medicine02/20/20Team MemberRelationshipSpecialtyStart DateEnd Date Kavon Sams Md PCP - GeneralFamily Xyiffwlj40/13/20 Kavon Sams MD PhysicianFamily Medicine02/20/20Team MemberRelationshipSpecialtyStart DateEnd Date Kavon Sams MD [address] [place] [address] PCP - Generalmily Medicine08/15/23Team MemberRelationshipSpecialtyStart DateEnd Date Kavon Sams MD [address] [place] [facility] [address] [facility] - [facility]/15/23Team MemberRelationshipSpecialtyStart DateEnd Date Kavon Sams MD [address] [place] [facility] [address] [facility]08/15/23Team MemberRelationshipSpecialtyStart DateEnd Date Kavon Sams Md PCP - Generalmily Xvjwryhr52/13/20 K[facility] Sams [facility] Medicine02/20/20 Team Status: Inactive Member Role Status Nadya Sams MD Attending Provider Active Sta rt: July 24, 2024 End: July 24, 2024Team MemberRelationshipSpecialtyStart DateEnd Date Kavon Sams MD [address] [place] [address] PCP - Generalmily Medicine08/15/23Team MemberRelationshipSpecialtyStart DateEnd Date Kavon Sams Md PCP - [facility]03/23/20 Kavon Sams MD [facility] Medicine02/20/20Team MemberRelationshipSpecialtyStart DateEnd Kavon Sams MD [address] [place] [address] PCP - [facility]08/15/23 Team Status: Inactive Member Role Status Dates Meghan Ramachandran DO Attending Provider Active Sta rt: August 06, 2024 End: August 06, 2024Team MemberRelationshipSpecialtyStart DateEnd Date Kavon Sams MD [address] [place] [address] PCP - [facility]08/15/23 Team Status: Inactive Member Role Status Dates Kavon Sams MD Attending Provider Active Sta rt: August 13, 2024 End: August 13, 2024 Team Status: Active Member Role Status Dates Damaso Charlton DO Emergency Provider Active St art: August 20, 2024 Aki Arroyo Care ProviderActiveStart: August 20, 2024 Mayra Potter Provider, Attending ProviderActiveStart: August 20, 2024 Team Status: Inactive Member Role Status Dates Damaso Charlton DO Emergency Provider Active St art: August 20, 2024 End: August 25, 2024Aki Arroyo Care ProviderActiveStart: August 20, 2024 End: August 25, 2024DaMayra Zazueta ProviderActiveStart: August 20, 2024 End: August 25, 2024Mansi San ProviderActiveStart: August 20, 2024 End: August 25, 2024Mago Quintanilla MDOther ProviderActiveStart: August 20, 2024 End: August 25, 2024Ramsey Monroe MDOther ProviderActiveStart: August 20, 2024 End: August 25, 2024Elena Ramon , APRNOther ProviderActiveStart: August 20, 2024 End: August 25enedict Luca Bah Jr, DOOther ProviderActiveStart: August 20, 2024 End: August 25Ritesh Conroy ProviderActiveStart: August 20, 2024 End: August 25giancarlo Fuentes DOOther ProviderActiveStart: August 20, 2024 End: August 25, 2024 Team Status: Active Member Role Status Dates Damaso Charlton DO Emergency Provider Active St art: August 22, 2024 Kavon Sams , [place] Care ProviderActiveStart: August 22, 2024 Lauro Garvey MDAdmit ProviderActiveStart: August 22, 2024 Mariajose Alfred MDOther ProviderActiveStart: August 22, 2024 Mago Quintanilla MDOther ProviderActiveStart: August 22, 2024 Ramsey Monroe MDAttending Provider, Other ProviderActiveStart: August 22, 2024 Didisusan Navarro , APRNOther ProviderActiveStart: August 22, 2024 [facility] Luc[facility] Bah Jr, DOOther ProviderActiveStart: August 22, 2024 Pa Neil MDOther ProviderActiveStart: August 22, 2024 Tony Fuentes DOOther ProviderActiveStart: August 22, 2024 Team Status: Inactive Member Role Status Dates Kavon Sams MD Primary Care Provider Active Start: August 25, 2024 End: September 05Mayra Conroy Provider, Attending ProviderActiveStart: August 25, 2024 End: September 05lexLudivina Lundberg ProviderActiveStart: August 25, 2024 End: September 05, 2024Ludivina Kamara ProviderActiveStart: August 25, 2024 End: September 05, 2024MicLudivina Wood ProviderActiveStart: August 25, 2024 End: September 05, 2024Ludivina Anderson ProviderActiveStart: August 25, 2024 End: September 05, 2024Yvrose Johnson RNOther ProviderActiveStart: August 25, 2024 End: September 05, 2024Ritesh Gordon ProviderActiveStart: August 25, 2024 End: September 05, 2024Barney Quan DOOther ProviderActiveStart: August 25, 2024 End: September 05, 2024Musjeff Avila MDOther ProviderActiveStart: August 25, 2024 End: September 05, 2024oCnnor Dumont DOOther ProviderActiveStart: August 25, 2024 End: September 05ndRitesh Mcintosh ProviderActiveStart: August 25, 2024 End: September 05, 2024Ritesh Knapp ProviderActiveStart: August 25, 2024 End: September 05, 2024Micnorma Shelby DOOther ProviderActiveStart: August 25, 2024 End: September 05, 2024Ludwin Cuadra MDOther ProviderActiveStart: August 25, 2024 End: September 05, 2024Lyrosa Ho APRNOther ProviderActiveStart: August 25, 2024 End: September 05, 2024Ritesh Marquez ProviderActiveStart: August 25, 2024 End: September 05Ritesh Anand ProviderActiveStart: August 25, 2024 End: September 05, 2024Ritesh Schmidt ProviderActiveStart: August 25, 2024 End: September 05, 2024Ritesh Contreras ProviderActiveStart: August 25, 2024 End: September 05, 2024MicMaranda Whatley ProviderActiveStart: August 25, 2024 End: September 05, 2024Ritesh Hoskins ProviderActiveStart: August 25, 2024 End: September 05, 2024Ritesh Joshua ProviderActiveStart: August 25, 2024 End: September 05wyatt Pandya NP-Olegher ProviderActiveStart: August 25, 2024 End: September 05djacinda Warren , APRNOther ProviderActiveStart: August 25, 2024 End: September 05, 2024Ton Conti MDOther ProviderActiveStart: August 25, 2024 End: September 05, 2024Jordan Ortega MDOther ProviderActiveStart: August 25, 2024 End: September 05, 2024Ritesh Downey ProviderActiveStart: August 25, 2024 End: September 05, 2024Khmissy Faria MDOther ProviderActiveStart: August 25, 2024 End: September 05noMg MDOther ProviderActiveStart: August 25, 2024 End: September 05, 2024Carolina Mccoy DOOther ProviderActiveStart: August 25, 2024 End: September 05, 2024Ty Garrido , DOOther ProviderActiveStart: August 25, 2024 End: September 05, 2024Katarzyna Major , APRNOther ProviderActiveStart: August 25, 2024 End: September 05, 2024Andrew Grace , DOOther ProviderActiveStart: August 25, 2024 End: September 05, 2024Mariajose Alfred MDOther ProviderActiveStart: August 25, 2024 End: September 05, 2024Ebony Scott APRNOther ProviderActiveStart: August 25, 2024 End: September 05tripp Diaz APRNOther ProviderActiveStart: August 25, 2024 End: September 05Ritesh Bella ProviderActiveStart: August 25, 2024 End: September 05, 2024Lauro Garvey MDOther ProviderActiveStart: August 25, 2024 End: September 05, 2024Niranjan Ambrosio DOOther ProviderActiveStart: August 25, 2024 End: September 05mateo Kong DOOther ProviderActiveStart: August 25, 2024 End: September 05, 2024Rtiesh Mattson ProviderActiveStart: August 25, 2024 End: September 05conchita Johns MDOther ProviderActiveStart: August 25, 2024 End: September 05kyler Cornejo APRNOther ProviderActiveStart: August 25, 2024 End: September 05, 2024Ritesh Sepulveda ProviderActiveStart: August 25, 2024 End: September 05sarah Shafer MDOther ProviderActiveStart: August 25, 2024 End: September 05, 2024Ramsey Dillon MDOther ProviderActiveStart: August 25, 2024 End: September 05, 2024Ludwin Barry MDOther ProviderActiveStart: August 25, 2024 End: September 05, 2024Ramary jane Harris MDOther ProviderActiveStart: August 25, 2024 End: September 05, 2024Cynthia Bull ProviderActiveStart: August 25, 2024 End: September 05, 2024Nichortencia Liz APRNOther ProviderActiveStart: August 25, 2024 End: September 05, 2024Sasuzie Pisano RNOther ProviderActiveStart: August 25, 2024 End: September 05, 2024Alyson Floresther ProviderActiveStart: August 25, 2024 End: September 05, 2024Jose R Lewis PhDOther ProviderActiveStart: August 25, 2024 End: September 05, 2024Christina Vasquez DOOther ProviderActiveStart: August 25, 2024 End: September 05, 2024Ramiro Louise MDOther ProviderActiveStart: August 25, 2024 End: September 05christiano Rao DOOther ProviderActiveStart: August 25, 2024 End: September 05giancarlo Fuentes DOOther ProviderActiveStart: August 25, 2024 End: September 05kyler Farris APRNOther ProviderActiveStart: August 25, 2024 End: September 05Maria Esther Garcíaher ProviderActiveStart: August 25, 2024 End: September 05, 2024Shaun Jackson APRN-FNP-COther ProviderActiveStart: August 25, 2024 End: September 05, 2024Thdaniella Jon MDOther ProviderActiveStart: August 25, 2024 End: September 05di Lawson MDOther ProviderActiveStart: August 25, 2024 End: September 05, 2024Shayy García , PASTRY SOUS CHEF-COther ProviderActiveStart: August 25, 2024 End: September 05, 2024Juzachary Carlos , DOOther ProviderActiveStart: August 25, 2024 End: September 05, 2024Dale Alvarenga II, MDOther ProviderActiveStart: August 25, 2024 End: September 05, 2024Demarco Segal , DOOther ProviderActiveStart: August 25, 2024 End: September 05, 2024 Team Status: Active Member Role Status Dates Kavon Sams MD Primary Care Provider Active Start: August 26, 2024 [facility], Attending Provider, Other Provider ActiveStart: August 26, 2024 Gloria House , CECYOther ProviderActiveStart: August 26, 2024 Andra Uriostegui , CECYOther ProviderActiveStart: August 26, 2024 Kimberlyn Prasad , CECYOther ProviderActiveStart: August 26, 2024 Tequila Santamaria , CECYOther ProviderActiveStart: August 26, 2024 Yvrose Johnson , CECYOther ProviderActiveStart: August 26, 2024 Trish Christensen MDOther ProviderActiveStart: August 26, 2024 Barney Quan , DOOther ProviderActiveStart: August 26, 2024 Clyde Avila MDOther ProviderActiveStart: August 26, 2024 Connor Dumont , DOOther ProviderActiveStart: August 26, 2024 Evelio Smith MDOther ProviderActiveStart: August 26, 2024 Faith Mccoy MDOther ProviderActiveStart: August 26, 2024 Yulissa Shelby , DOOther ProviderActiveStart: August 26, 2024 Ludwin Cuadra MDOther ProviderActiveStart: August 26, 2024 Baylee Ho , APRNOther ProviderActiveStart: August 26, 2024 Carie Blunt MDOther ProviderActiveStart: August 26, 2024 Easton Galeano MDOther ProviderActiveStart: August 26, 2024 Yanique Echevarria MDOther ProviderActiveStart: August 26, 2024 Bobby Luz MDOther ProviderActiveStart: August 26, 2024 Yulissa Lemon , DOOther ProviderActiveStart: August 26, 2024 Paxton Sparks MDOther ProviderActiveStart: August 26, 2024 Ulysses Valenzuela MDOther ProviderActiveStart: August 26, 2024 Meghana Pandya , PASTRY SOUS CHEF-COther ProviderActiveStart: August 26, 2024 Sofia Warren , APRNOther ProviderActiveStart: August 26, 2024 Ton Conti MDOther ProviderActiveStart: August 26, 2024 Jordan Ortega MDOther ProviderActiveStart: August 26, 2024 Abner Lazar MDOther ProviderActiveStart: August 26, 2024 Nikko Faria MDOther ProviderActiveStart: August 26, 2024 Jair Mejia MDOther ProviderActiveStart: August 26, 2024 Carolina Mccoy DOOther ProviderActiveStart: August 26, 2024 yT Garrido , DOOther ProviderActiveStart: August 26, 2024 Katarzyna Major , APRNOther ProviderActiveStart: August 26, 2024 Andrew Grace , DOOther ProviderActiveStart: August 26, 2024 Mariajose Alfred MDOther ProviderActiveStart: August 26, 2024 Ebony Scott , APRNOther ProviderActiveStart: August 26, 2024 Sameera Diaz , APRNOther ProviderActiveStart: August 26, 2024 Haile Patel MDOther ProviderActiveStart: August 26, 2024 Lauro Garvey MDOther ProviderActiveStart: August 26, 2024 Niranjan Ambrosio , DOOther ProviderActiveStart: August 26, 2024 Aristeo Kong , DOOther ProviderActiveStart: August 26, 2024 Leonardo Lazar MDOther ProviderActiveStart: August 26, 2024 Addy Johns MDOther ProviderActiveStart: August 26, 2024 Haydee Cornejo , APRNOther ProviderActiveStart: August 26, 2024 Joe Coleman MDOther ProviderActiveStart: August 26, 2024 Awais Shafer MDOther ProviderActiveStart: August 26, 2024 Ramsey Dillon MDOther ProviderActiveStart: August 26, 2024 Ludwin Barry MDOther ProviderActiveStart: August 26, 2024 Bogdan Harris MDOther ProviderActiveStart: August 26, 2024 Anaid Borrero , APRNOther ProviderActiveStart: August 26, 2024 Gi Liz , APRNOther ProviderActiveStart: August 26, 2024 Lanny Pisano RNOther ProviderActiveStart: August 26, 2024 Team Status: Active Member Role Status Dates Kavon Sams MD Primary Care Provider Active Start: September 02, 2024 Pa Neil MDAdmit Provider, Attending Provider, Other Provider ActiveStart: September 02, 2024 Gloria House , CECYOther ProviderActiveStart: September 02, 2024 Andra Uriostegui , CECYOther ProviderActiveStart: September 02, 2024 Kimberlyn Prasad , CECYOther ProviderActiveStart: September 02, 2024 Tequila Santamaria RNOther ProviderActiveStart: September 02, 2024 Yvrose Johnson RNOther ProviderActiveStart: September 02, 2024 Trish Christensen MDOther ProviderActiveStart: September 02, 2024 Barney Quan , DOOther ProviderActiveStart: September 02, 2024 Clyde Avila MDOther ProviderActiveStart: September 02, 2024 Connor Dumont DOOther ProviderActiveStart: September 02, 2024 Evelio Smith MDOther ProviderActiveStart: September 02, 2024 Faith Mccoy MDOther ProviderActiveStart: September 02, 2024 Yulissa Menolasino , DOOther ProviderActiveStart: September 02, 2024 Ludwin Cuadra MDOther ProviderActiveStart: September 02, 2024 Baylee Ho , APRNOther ProviderActiveStart: September 02, 2024 Carie Blunt MDOther ProviderActiveStart: September 02, 2024 Easton Galeano MDOther ProviderActiveStart: September 02, 2024 Yanique Echevarria MDOther ProviderActiveStart: September 02, 2024 Bobby Luz MDOther ProviderActiveStart: September 02, 2024 Yulissa Lemon , Other ProviderActiveStart: September 02, 2024 Paxton Sparks MDOther ProviderActiveStart: September 02, 2024 Ulysses Valenzuela MDOther ProviderActiveStart: September 02, 2024 Meghana Pandya , PASTRY SOUS CHEF-COther ProviderActiveStart: September 02, 2024 Sofia Warren , APRNOther ProviderActiveStart: September 02, 2024 Ton Conti MDOther ProviderActiveStart: September 02, 2024 Jordan Ortega MDOther ProviderActiveStart: September 02, 2024 Abner Lazar MDOther ProviderActiveStart: September 02, 2024 Nikko Faria MDOther ProviderActiveStart: September 02, 2024 Jair Mejia MDOther ProviderActiveStart: September 02, 2024 Carolina Mccoy , DOOther ProviderActiveStart: September 02, 2024 Ty Garrido , DOOther ProviderActiveStart: September 02, 2024 Katarzyna Major , APRNOther ProviderActiveStart: September 02, 2024 Andrew Grace , DOOther ProviderActiveStart: September 02, 2024 Mariajose Alfred MDOther ProviderActiveStart: September 02, 2024 Ebony Scott , APRNOther ProviderActiveStart: September 02, 2024 Sameera Diaz , APRNOther ProviderActiveStart: September 02, 2024 Haile Patel MDOther ProviderActiveStart: September 02, 2024 Lauro Garvey MDOther ProviderActiveStart: September 02, 2024 Niranjan Ambrosio , DOOther ProviderActiveStart: September 02, 2024 Aristeo Kong , DOOther ProviderActiveStart: September 02, 2024 Leonardo Lazar MDOther ProviderActiveStart: September 02, 2024 Addy Johns MDOther ProviderActiveStart: September 02, 2024 Haydee Cornejo , APRNOther ProviderActiveStart: September 02, 2024 Joe Coleman MDOther ProviderActiveStart: September 02, 2024 Awais Shafer MDOther ProviderActiveStart: September 02, 2024 Ramsey Dillon MDOther ProviderActiveStart: September 02, 2024 Ludwin Barry MDOther ProviderActiveStart: September 02, 2024 Bogdan Harris MDOther ProviderActiveStart: September 02, 2024 Anaid Borrero , APRNOther ProviderActiveStart: September 02, 2024 Gi Liz , APRNOther ProviderActiveStart: September 02, 2024 Lanny Pisano RNOther ProviderActiveStart: September 02, 2024 Alyson Nguyen ProviderActiveStart: September 02, 2024 Jose R Lewis PhDOther ProviderActiveStart: September 02, 2024 Christina Vasquez DOOther ProviderActiveStart: September 02, 2024 Ramiro Louise MDOther ProviderActiveStart: September 02, 2024 Baljeet Rao DOOther ProviderActiveStart: September 02, 2024 Tony Fuentes DOOther ProviderActiveStart: September 02, 2024 Haydee Farris , APRNOther ProviderActiveStart: September 02, 2024 Cathie Gill , PASTRY SOUS CHEF-COther ProviderActiveStart: September 02, 2024 Shaun Jackson , EPFI-IRB-SBzfzt ProviderActiveStart: September 02, 2024 Team Status: Active Member Role Status Dates Kavon Sams MD Primary Care Provider Active Start: September 03, 2024 Pa Neil MDAdmit Provider, Other ProviderActiveStart: September 03, 2024 Gloria House , CECYOther ProviderActiveStart: September 03, 2024 Andra Uriostegui , CECYOther ProviderActiveStart: September 03, 2024 Kimberlyn Prasad , CECYOther ProviderActiveStart: September 03, 2024 Tequila Santamaria , CECYOther ProviderActiveStart: September 03, 2024 Yvrose Johnson , CECYOther ProviderActiveStart: September 03, 2024 Trish Christensen MDOther ProviderActiveStart: September 03, 2024 Barney Quan , DOOther ProviderActiveStart: September 03, 2024 Clyde Avila MDOther ProviderActiveStart: September 03, 2024 Connor Dumont , DOOther ProviderActiveStart: September 03, 2024 Evelio Smith MDOther ProviderActiveStart: September 03, 2024 Faith Mccoy MDOther ProviderActiveStart: September 03, 2024 Yulissa Shelby DOOther ProviderActiveStart: September 03, 2024 Ludwin Cuadra MDOther ProviderActiveStart: September 03, 2024 Baylee Ho , APRNOther ProviderActiveStart: September 03, 2024 Carie Blunt MDOther ProviderActiveStart: September 03, 2024 Easton Galeano MDOther ProviderActiveStart: September 03, 2024 Yanique Echevarria MDOther ProviderActiveStart: September 03, 2024 Bobby Luz MDOther ProviderActiveStart: September 03, 2024 Yulissa Lemon DOOther ProviderActiveStart: September 03, 2024 aPxton Sparks MDOther ProviderActiveStart: September 03, 2024 Ulysses Valenzuela MDOther ProviderActiveStart: September 03, 2024 Meghana Pandya , PASTRY SOUS CHEF-COther ProviderActiveStart: September 03, 2024 Sofia Warren , APRNOther ProviderActiveStart: September 03, 2024 Ton Conti MDOther ProviderActiveStart: September 03, 2024 Jordan Ortega MDOther ProviderActiveStart: September 03, 2024 Abner Lazar MDOther ProviderActiveStart: September 03, 2024 Nikko Faria MDOther ProviderActiveStart: September 03, 2024 Jair Mejia MDOther ProviderActiveStart: September 03, 2024 Carolina Mccoy DOOther ProviderActiveStart: September 03, 2024 Ty R Hmea , DOOther ProviderActiveStart: September 03, 2024 Katarzyna Major , APRNOther ProviderActiveStart: September 03, 2024 Andrew Grace , DOOther ProviderActiveStart: September 03, 2024 Mariajose Alfred MDOther ProviderActiveStart: September 03, 2024 Ebony Scott , APRNOther ProviderActiveStart: September 03, 2024 Sameera Diaz , APRNOther ProviderActiveStart: September 03, 2024 Haile Patel MDOther ProviderActiveStart: September 03, 2024 Lauro Garvey MDOther ProviderActiveStart: September 03, 2024 Niranjan Ambrosio , DOOther ProviderActiveStart: September 03, 2024 Aristeo Kong , DOOther ProviderActiveStart: September 03, 2024 Leonardo Lazar MDOther ProviderActiveStart: September 03, 2024 Addy Johns MDOther ProviderActiveStart: September 03, 2024 Haydee Cornejo , APRNOther ProviderActiveStart: September 03, 2024 Joe Coleman MDOther ProviderActiveStart: September 03, 2024 Awais Shafer MDOther ProviderActiveStart: September 03, 2024 Ramsey Dillon MDOther ProviderActiveStart: September 03, 2024 Ludwin Barry MDOther ProviderActiveStart: September 03, 2024 Bogdan Harris MDOther ProviderActiveStart: September 03, 2024 Anaid Borrero , APRNOther ProviderActiveStart: September 03, 2024 Gi Liz , APRNOther ProviderActiveStart: September 03, 2024 Lanny Pisano RNOther ProviderActiveStart: September 03, 2024 Alyson Nguyen ProviderActiveStart: September 03, 2024 Jose R Lewis , Other ProviderActiveStart: September 03, 2024 Christina Vasquez , DOOther ProviderActiveStart: September 03, 2024 Ramiro Louise MDOther ProviderActiveStart: September 03, 2024 Baljeet Rao , DOOther ProviderActiveStart: September 03, 2024 Tony Fuentes , DOOther ProviderActiveStart: September 03, 2024 Haydee Farris , APRNOther ProviderActiveStart: September 03, 2024 Cathie Gill , PASTRY SOUS CHEF-COther ProviderActiveStart: September 03, 2024 Shaun Jackson , NGXX-UVG-SVddma ProviderActiveStart: September 03, 2024 Henrry Jon , MDAttending Provider, Other ProviderActiveStart: September 03, 2024 Naye Lawson MDOther ProviderActiveStart: September 03, 2024 Shayy García , PASTRY SOUS CHEF-COther ProviderActiveStart: September 03, 2024 Ashwin Carlos , DOOther ProviderActiveStart: September 03, 2024 Dale Alvarenga II, MDOther ProviderActiveStart: September 03, 2024 Demarco Segal , DOOther ProviderActiveStart: September 03, 2024 Team MemberRelationshipSpecialtyStart DateEnd Kavon Sams MD [address] [place] [address] PCP - GeneralFamily Medicine08/15/23Team MemberRelationshipSpecialtyStart End Kavon Sams MD [address] [place] [address] PCP - GeneralFamily Medicine08/15/23Team MemberRelationshipSpecialtyStart End Kavon Sams MD [address] [place] [facility] [address] PCP - GeneralFamily Medicine08/15/23Team MemberRelationshipSpecialtyStart End Kavon Sams MD [address] [place] [address] PCP - GeneralFamily Medicine08/15/23Team MemberRelationshipSpecialtyStart DateEnd Date Kavon Sams MD PCP - [facility]08/15/23Team MemberRelationshipSpecialtyStart DateEnd Date Kavon Sams MD [address] [place] [address] PCP - [facility]11/20/24Team MemberRelationshipSpecialtyStart DateEnd Date Kavon Sams MD [address] [place] [address] PCP - [facility]11/20/24 Team Status: Active Member Role Status Dates Linda Minaya MD Primary Care Provider Active Team Status: Active Member Role Status Dates Jen Downing MD Emergency Provider Active Start: December 15, 2024 Daniela Jaramillo , PASTRY SOUS CHEF-CPrimary Care ProviderActiveStart: December 15, 2024 Faith Mccoy MDAdmit ProviderActiveStart: December 15, 2024 Faith Mccoy MDOther ProviderActiveStart: December 15, 2024 Alyson Floresther ProviderActiveStart: December 15, 2024 Christina Vasquez , DOOther ProviderActiveStart: December 15, 2024 Ramiro Louise MDOther ProviderActiveStart: December 15, 2024 Baljeet Rao DOOther ProviderActiveStart: December 15, 2024 Tony Fuentes DOOther ProviderActiveStart: December 15, 2024 Haydee Farris , MERNOther ProviderActiveStart: December 15, 2024 Cathie Gill , PASTRY SOUS CHEF-COther ProviderActiveStart: December 15, 2024 Shaun Jackson , TWAO-JHR-DQybcm ProviderActiveStart: December 15, 2024 Candida Garcia RNOther ProviderActiveStart: December 15, 2024 David Leach MDOther ProviderActiveStart: December 15, 2024 Brian Mcdonald MDAttending ProviderActiveStart: December 15, 2024 Brian Mcdonald MDOther ProviderActiveStart: December 15, 2024 Katarzyna Rascon MDOther ProviderActiveStart: December 15, 2024 Cytnhia Butcher ProviderActiveStart: December 15, 2024 Team MemberRelationshipSpecialtyStart DateEnd Date Kavon Sams MD [address] [place] [address] PCP - GeneralFamily Medicine Lauro Mcnamara MD [address] [facility] [address] [place] [address] PCP - GeneralInternal Medicine12/25/24 Daniela Jaramillo, PASTRY SOUS CHEF [address] [facility] [address] [place] [address] [facility]12/25/24Team MemberRelationshipSpecialtyStart DateEnd Date Lauro Mcnamara MD [address] [facility] [address] [place] [address] PCP - GeneralInternal Medicine12/25/24 Daniela Jaramillo, PASTRY SOUS CHEF [address] [facility] [address] [place] [address] [facility]12/25/24Team MemberRelationshipSpecialtyStart DateEnd Date Kavon Sams Md PCP - GeneralFamily Eerxcbuo35/13/20 Kavon Sams MD PhysicianFamily Medicine02/20/20 Team Status: Inactive Member Role Status Dates Baljeet Rao , Attending Provider Active Start: January 29, 2025 End: January 29, 2025Daniela Jaramillo NP-[facility] ProviderActiveStart: January 29, 2025 End: January 29, 2025Team MemberRelationshipSpecialtyStart DateEnd Date Lauro Mcnamara MD [address] [place] [address] PCP - GeneralInternal Medicine12/25/24 Daniela Jaramillo, PASTRY SOUS CHEF [address] [facility] [address] [place] [address] [facility]12/25/24Team MemberRelationshipSpecialtyStart DateEnd Date Kavon Sams MD [address] [place] [facility] [address] [facility]CP - [facility] MedicineTeam MemberRelationshipSpecialtyStart DateEnd Date Lauro Mcnamara MD [address] [place] [address] [facility] - [facility]12/25/24 Daniela Jaramillo, PASTRY SOUS CHEF [address] [place] [address] [facility]12/25/24Team MemberRelationshipSpecialtyStart DateEnd Date Lauro Mcnamara MD [address] [place] [address] PCP - [facility]12/25/24 Daniela Jaramillo, PASTRY SOUS CHEF [address] [place] [address] Nurse PractitionerFaFairview Park [facility] Team Status: Inactive Member Role Status Dates Daniela Jaramillo , PASTRY SOUS CHEF-C Primary Care Provider Active Start: February 27, 2025 End: February 27, 2025Mark Rose ProviderActiveStart: February 27, 2025 End: February 27, 2025 Team Status: Inactive Member Role Status Dates Jacquelyn Segal , LOSS PREVENTION ANALYST Attending Provider Active Start: February 27, 2025 End: February 27, 2025 Team Status: Active Member Role Status Dates Daniela Jaramillo PASTRY SOUS CHEF-C Primary Care Provider Active Start: March 02, 2025 Angel Daily Jr ProviderActiveStart: March 02, 2025 Connor Dumont DOAdmit ProviderActiveStart: March 02, 2025 Connor Dumont DOAttending ProviderActiveStart: March 02, 2025 Team Status: Active Member Role Status Dates Daniela Jaramillo PASTRY SOUS CHEF-C Primary Care Provider Active Start: March 02, 2025 Angel Daily Jr ProviderActiveStart: March 02, 2025 Connor Dumont DOAdmit ProviderActiveStart: March 02, 2025 Maranda Del Rio ProviderActiveStart: March 02, 2025 Mansi Barrera ProviderActiveStart: March 02, 2025 Ritesh Barrera ProviderActiveStart: March 02, 2025 Goals (unrecognized section and content) Type Treatment Intervention Code Status: DNRC CA without Intubation Source Comments (unrecognize d section and content) In the event this informatio n is protected by the Federal Confidentiality of Alcohol and Drug Abuse Patient Records regulations: The Federal rules restrict any use of the information to criminally investigate or prosecute any alcohol or drug abuse patient.[facility] the event this information is protected by the Federal Confidentiality of Alcohol and Drug Abuse Patient Records regulations: The Federal rules restrict any use of the information to criminally investigate or prosecute any alcohol or drug abuse patient.[facility] the event this information is protected by the Federal Confidentiality of Alcohol and Drug Abuse Patient Records regulations: The Federal rules restrict any use of the information to criminally investigate or prosecute any alcohol or drug abuse patient.[facility] the event this information is protected by the Federal Confidentiality of Alcohol and Drug Abuse Patient Records regulations: The Federal rules restrict any use of the information to criminally investigate or prosecute any alcohol or drug abuse patient.[facility] the event this information is protected by the Federal Confidentiality of Alcohol and Drug Abuse Patient Records regulations: The Federal rules restrict any use of the information to criminally investigate or prosecute any alcohol or drug abuse patient.[facility] the event this information is protected by the Federal Confidentiality of Alcohol and Drug Abuse Patient Records regulations: The Federal rules restrict any use of the information to criminally investigate or prosecute any alcohol or drug abuse patient.[facility]In the event this information is protected by the Federal Confidentiality of Alcohol and Drug Abuse Patient Records regulations: The Federal rules restrict any use of the information to criminally investigate or prosecute any alcohol or drug abuse patient.[facility]In the event this information is protected by the Federal Confidentiality of Alcohol and Drug Abuse Patient Records regulations: The Federal rules restrict any use of the information to criminally investigate or prosecute any alcohol or drug abuse patient.[facility]In the event this information is protected by the Federal Confidentiality of Alcohol and Drug Abuse Patient Records regulations: The Federal rules restrict any use of the information to criminally investigate or prosecute any alcohol or drug abuse patient.[facility]In the event this information is protected by the Federal Confidentiality of Alcohol and Drug Abuse Patient Records regulations: The Federal rules restrict any use of the information to criminally investigate or prosecute any alcohol or drug abuse patient.[facility]In the event this information is protected by the Federal Confidentiality of Alcohol and Drug Abuse Patient Records regulations: The Federal rules restrict any use of the information to criminally investigate or prosecute any alcohol or drug abuse patient.[facility] the event this information is protected by the Federal Confidentiality of Alcohol and Drug Abuse Patient Records regulations: The Federal rules restrict any use of the information to criminally investigate or prosecute any alcohol or drug abuse patient.[facility]In the event this information is protected by the Federal Confidentiality of Alcohol and Drug Abuse Patient Records regulations: The Federal rules restrict any use of the information to criminally investigate or prosecute any alcohol or drug abuse patient.[facility]In the event this information is protected by the Federal Confidentiality of Alcohol and Drug Abuse Patient Records regulations: The Federal rules restrict any use of the information to criminally investigate or prosecute any alcohol or drug abuse patient.[facility]In the event this information is protected by the Federal Confidentiality of Alcohol and Drug Abuse Patient Records regulations: The Federal rules restrict any use of the information to criminally investigate or prosecute any alcohol or drug abuse patient.[facility]In the event this information is protected by the Federal Confidentiality of Alcohol and Drug Abuse Patient Records regulations: The Federal rules restrict any use of the information to criminally investigate or prosecute any alcohol or drug abuse patient.[facility] Reason for Visit (unrecogniz ed section and content) ReasonCommentsNew PatientReasonCommentsRadiology MRISpecialtyDiagnoses / ProceduresReferred By ContactReferred To ContactMR IMAGING Diagnoses Spinal stenosis of cervical region Procedures MRI CERVICAL SPINE WO IVCON MRI SPINAL CANAL CERVICAL W/O CONTRAST David Andrea MD [address] [place] [address] Mr [facility] [place] [address] Referral IDStatusReasonStart DateExpiration DateVisits RequestedVisits [id number] Auto-Generated Referral [id number] / ProceduresReferred By ContactReferred To ContactMR IMAGING Diagnoses Abnormal posture Procedures MRI THORACIC SPINE WO IVCON MRI SPINAL CANAL THORACIC W/O CONTRAST MATRL David Valente MD [address] [place] [address] Mr [facility] [place] [address] Referral IDStatusReasonStart DateExpiration DateVisits RequestedVisits [id number] Auto-Generated Referral [id number] / ProceduresReferred By ContactReferred To ContactMR IMAGING Diagnoses Spinal stenosis of lumbar region with neurogenic claudication Procedures MRI LUMBAR SPINE WO IVCON MRI SPINAL CANAL LUMBAR W/O CONTRAST MATERIAL David Valente MD [address] [place] [address] Mr [facility] [place] [address] Referral IDStatusReasonStart DateExpiration DateVisits RequestedVisits [id number] Auto-Generated Referral [id number]QabjtyYvbvizwlGonerxsuu's Disease SpecialtyDiagnoses / ProceduresReferred By ContactReferred To Contact Diagnoses Parkinson's disease, unspecified whether dyskinesia present, unspecified whether manifestations fluctuate (HCC) Procedures PROVIDER ORDERED FOLLOW UP OFFICE/OUTPATIENT NEW [facility] 60 MINUTES David Valente MD [address] [place] [address] Referral IDStatusReasonStart DateExpiration DateVisits RequestedVisits [id number] PCP Requested Referral [id number] Change RequestReasonCommentsMedication Update/AmantadineReasonCommentsEstablished PatientFollow UpReasonComments Established PatientFollow upSpecialtyDiagnoses / ProceduresReferred By Contact Referred To [facility] Diagnoses Parkinson's disease with dyskinesia and fluctuating manifestations (HCC) Procedures PROVIDER ORDERED FOLLOW UP OFFICE/OUTPATIENT NEW [facility] 60 MINUTES Cherie Cedeno PA-C [address] [place] [address] Referral IDStatusReasonStart DateExpiration DateVisits RequestedVisits [id number] PCP Requested Referral [id number] RequestReasonCommentsParkinson's Disease InsomniaCarpal TunnelReasonCommentsParkinson's DiseaseRestless LegsCarpal Tunnel RHistory of StrokeReasonCommentsEstablished PatientFollow up declined all tabletsSpecialtyDiagnoses / ProceduresReferred By ContactReferred To Contact [facility] [place] Diagnoses Parkinson's disease with dyskinesia and fluctuating manifestations (HCC) Procedures PROVIDER ORDERED FOLLOW UP OFFICE/OUTPATIENT NEW [facility]IGH MDM 60 MINUTES Cherie Cedeno PA-C [address] [place] [address] [place] [address] Referral IDStatusReasonStart DateExpiration DateVisits RequestedVisits [id number] PCP Requested Referral [id number] ClearanceReasonCommentsFractureReason CommentsFractureSx 08/12/24FractureDOI 09/02/24ReasonOnset DateCommentsMed Ropogr0509/24/2024ReasonCommentsParkinson's DiseaseStrokeReasonCommentsER Follow-upReasonCommentsEstablished PatientSpecialtyDiagnoses / Procedures Referred By [facility]Ref[facility] Diagnoses Parkinson's disease with dyskinesia and fluctuating manifestations (HCC) Procedures PROVIDER ORDERED FOLLOW UP OFFICE/OUTPATIENT NEW [facility]IGH MDM 60 MINUTES Cherie Cedeno PA-C [address] [place] [address] Phone: tel: fax: Neurology [address] [place] [address] Phone: tel: Referral IDStatusReasonStart DateExpiration DateVisits RequestedVisits [id number] PCP Requested Referral / FOR RECORDS PERTAINING TO PATIENTS WHO ARE [...] BE BASED ON THE PRIMARY CLINICAL RECORDS. [employer] [facility]. provides no warranty or guarantee of the accuracy or completeness of information in this document.
== END 2025-03-31 13:34 | disposition home or self-care (01) ==
LOC: CT 13:35
PROVIDERS: PCP Nurse Practitioner Family; Visit Provider Nurse Practitioner
DX: J44.9 Chronic obstructive pulmonary disease, unspecified (principal); I50.9 Heart failure, unspecified; J98.4 Other disorders of lung
CPT/HCPCS: 71250